=== PATIENT | female | born 1975 | race Caucasian/White ===

== ENCOUNTER 2017-10-11 14:56 | Emergency (ER) | payer SELFPAY ==
[2017-10-11 14:57] VITALS: BP 132/95; PULSE 110; RESP 20; TEMP 36.6; O2SAT 97; BMI 33.3
--- NOTE | 2017-10-11 15:24 | ED.VISSUMM ---
- ER Visit Summary Date of Service: 10/11/17 Chief Complaint: Depressed and suicidal History of Present Illness: The patient is a 41 F straight depression and prior suicidal ideation. Recently he has been hospitalized at [facility] for similar symptoms. She also has had a history of deep venous thromboses and is currently on Coumadin. 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 She states that this caused her much grief and has exacerbated her depression. She states she is suicidal. She is a plan either to overdose or shoot herself and states that she has Coumadin that she would use to overdose herself or a gun that she has in her home. Physical Examination: Well-appearing middle-age female. Vital signs are stable afebrile. She does not look septic or toxic. H EENT exam pupils were reactive light. No facial droop. No head or facial trauma. Neck nontender. Lungs clear to auscultation bilaterally. Heart regular rhythm no murmur. Abdomen is soft and nontender. She is moving all 4 extremities. They are neurovascularly intact. Neurologic exam she is awake alert with no focal deficits. Back exam nontender. Psychiatrically she is emotionally upset and tearful. Test Results: Patient will undergo ED mental health evaluation along with the Coumadin level. Emergency Department Course and Treatment: She will be given 1 dose of p.o. Ativan here. Treatment Plan: The mental health workup and then evaluation by the counseling center. Disposition: [] Impression: Acute on chronic depression with suicidal ideation Anticoagulated with a history of DVT History of depression with prior suicide attempts. This note was generated with [employer] dictation software. It may contain incorrect words, spelling, and punctuation that were not noted in review of the chart prior to signing ED Disposition - Plan for ED Patient: Chief Complaint: Suicidal Referrals: Angella Melgar [Primary Care Provider] -
[2017-10-11] MEDS: LORazepam 1 MG Tablet PO ×2 (15:44→20:44)
[2017-10-11 15:56] LABS: Absolute Lymphocyte Count 2.05 X10^3/ul (0.83-4.51); Absolute Neutrophil Count 8.4 X10^3/uL (2.0-7.7); Basophil# 0.04 X10^3/uL; Basophil% 0.4 % (0-1); Eosinophil# 0.32 X10^3/uL; Eosinophils% 2.8 % (0-5); Hematocrit 38.2 % (37-47); Hemoglobin 12.6 g/dl (12.0-15.0); Lymphocyte # 2.05 X10^3/ul (4.0); Mean Corpuscular Hgb 32.7 pg (27.0-32.0); Mean Corpuscular Volume 99.2 fL (81-99); Mean Platelet Vol. 8.5 fl (6.2-12.0); Monocyte# 0.58 X10^3/uL; Monocyte% 5.1 % (0-10); Neutrophil # 8.41 X10^3/uL (2.7-7.7); Neutrophil % 73.5 % (47-70); Platelet Count 254 K/mm3 (150-450); RBC Distribution Width CV 12.8 % (11.6-14.6); RBC Distribution Width SD 46.5 fl (35.1-43.9); Red Blood Count 3.85 M/mm3 (4.2-5.4); White Blood Count 11.4 K/mm3 (4.4-11.0)
[2017-10-11 15:57] LABS: POSITIVE COUNT NO; POSITIVE DIFFERENTIAL NO; POSITIVE MORPHOLOGY NO
[2017-10-11 16:09] LABS: Anion Gap 9 (5-15); BUN 15 mg/dL (7-18); BUN/Creat Ratio 18.7 RATIO (10-20); Calcium,Total 8.4 mg/dL (8.5-10.1); Chloride 107 mmol/L (98-107); EST Glomerular Filtration Rate 83 mL/min (>60); Est Glom Filt Rate - Afr Amer 101 mL/min (>60); Estimated Creatinine Clearance 75.78 ml/min; Glucose 88 mg/dL (70-110); Potassium 3.9 mmol/L (3.5-5.1); Sodium Level 140 mmol/L (136-145)
--- NOTE | 2017-10-11 16:09 | NURSING ---
SUJIT, CRISIS, HERE
[2017-10-11 16:18] LABS: International Normalized Ratio 1.7
[2017-10-11 16:19] LABS: Amphetamine Urine VISTA NEGATIVE (<1000 ng/mL); Barbiturate Urine VISTA POSITIVE (< 200 ng/mL); Benzodiazepine Urine VISTA NEGATIVE (< 200 ng/mL); Cocaine Urine VISTA NEGATIVE (< 300 ng/mL); Ecstacy Urine VISTA NEGATIVE (< 500 ng/mL); Methadone Urine VISTA NEGATIVE (< 300 ng/mL); PCP Urine VISTA NEGATIVE (< 25 ng/mL); THC Urine VISTA NEGATIVE (< 50 ng/mL); Vista UDS pH Range 5
[2017-10-11 16:19] LABS: Pregnancy, Serum, hCG Quali. NEGATIVE Negative (0-9 Nonpreg)
[2017-10-11 16:25] LABS: Alcohol, Blood (Medical)-Serum < 3.0 mg/dL
[2017-10-11 16:40] VITALS: BP 101/73; PULSE 73; RESP 14; O2SAT 96
[2017-10-11 18:04] VITALS: BP 105/64; PULSE 70; RESP 18
--- NOTE | 2017-10-11 18:06 | ED.RN ---
pt continues to request pain medication for headache. aware was awre and was willing to offer tylenol
[2017-10-11 18:29] VITALS: BP 103/64; PULSE 72; RESP 18; O2SAT 98
[2017-10-11] MEDS: DiphenhydrAMINE 25 MG Capsule 50 MG PO (18:30)
[2017-10-11] MEDS: Acetaminophen 500 MG Tablet 1000 MG PO (18:31)
--- NOTE | 2017-10-11 18:35 | ED.RN ---
pt medicated. now asking for klonopin and coumadin. pt aware had ativan at 1545
[2017-10-11] MEDS: Acetaminophen/Butalbital/Caffe 1 Tablet 2 TABLET PO (20:44)
--- NOTE | 2017-10-11 22:02 | ED.RN ---
PT STILL ANXIOUS. WALKING OUT TO DESK SEVERAL TIMES. ATTEMPTED TO WALK PAST THE NURSES DECK TOWARD THE DOOR, HOWEVER TWO POLICE OFFICERS STANDING IN ED. PT RETURNED TO ROOM. HAVE PROVIDED TWO MEAL TRAYS.
[2017-10-11] MEDS: Ziprasidone IM 20 MG/ML VIAL 10 MG IM (22:10)
[2017-10-11 22:11] VITALS: BP 111/71; PULSE 69; O2SAT 98
[2017-10-11 23:00] VITALS: RESP 14
[2017-10-12] VITALS: RESP 16
[2017-10-12 01:00] VITALS: RESP 18
--- NOTE | 2017-10-12 04:14 | ED.RN ---
[facility] UNAVAILABLE FOR FEW HOURS [facility] UNAVAILABLE [facility]
--- NOTE | 2017-10-12 04:27 | ED.RN ---
REFER TO DOWNTIME CHARTING PAPER WORK FROM [phone] TO [phone].
--- NOTE | 2017-10-12 04:28 | ED.RN ---
[facility] WAS CALLED FOR TRANSPORT. ALL [facility] ARE BUSY, WILL TRY BACK LATER.
--- NOTE | 2017-10-12 04:43 | ED.RN ---
[facility] ETA 10 AM
[2017-10-12 05:31] VITALS: RESP 16
[2017-10-12 08:00] VITALS: BP 126/77; PULSE 72; RESP 16; O2SAT 99
[2017-10-12] MEDS: LORazepam 1 MG Tablet PO (08:40)
[2017-10-12] MEDS: Furosemide 40 MG Tablet PO (09:03)
[2017-10-12] MEDS: clonazePAM 0.5 MG Tablet PO (09:24)
[2017-10-12] MEDS: RisperiDONE 0.25 MG Tablet PO (09:24)
[2017-10-12] MEDS: Venlafaxine XR 150 MG Capsule PO (10:26)
[2017-10-12] MEDS: Venlafaxine XR 37.5 MG Capsule PO (10:26)
== END 2017-10-12 10:27 ==
PROVIDERS: Emergency Provider Emergency Medicine; Family Provider Nurse Practitioner Family; PCP Nurse Practitioner Family
DX: F32.9 Major depressive disorder, single episode, unspecified (principal); R45.851 Suicidal ideations; Z91.5 Personal history of self-harm; Z86.718 Personal history of other venous thrombosis and embolism; Z79.01 Long term (current) use of anticoagulants; Z72.0 Tobacco use
CPT/HCPCS: 36415; 80048; 80307; 80320; 84703; 85025; 85610; 99284; G0480; J3486

== ENCOUNTER 2017-11-11 02:36 | Emergency (ER) | payer SELFPAY ==
[2017-11-11 02:37] VITALS: BP 128/89; PULSE 88; RESP 20; TEMP 36.3; O2SAT 100; BMI 33.2
[2017-11-11] MEDS: Dicyclomine 10 MG Capsule 20 MG PO (03:15)
[2017-11-11] MEDS: Metoclopramide 10 MG/2 ML Vial IM (03:15)
[2017-11-11 04:05] LABS: Absolute Lymphocyte Count 2.01 X10^3/ul (0.83-4.51); Absolute Neutrophil Count 3.1 X10^3/uL (2.0-7.7); Basophil# 0.02 X10^3/uL; Basophil% 0.3 % (0-1); Eosinophils% 5.2 % (0-5); Hematocrit 36.1 % (37-47); Hemoglobin 12.4 g/dl (12.0-15.0); Lymphocyte # 2.01 X10^3/ul (4.0); Lymphocyte % 34.5 % (19-41); Mean Corp Hgb Conc 34.3 g/gl (32-36); Mean Corpuscular Hgb 33.4 pg (27.0-32.0); Mean Corpuscular Volume 97.3 fL (81-99); Mean Platelet Vol. 8.6 fl (6.2-12.0); Monocyte# 0.43 X10^3/uL; Monocyte% 7.4 % (0-10); Neutrophil # 3.05 X10^3/uL (2.7-7.7); Neutrophil % 52.4 % (47-70); Platelet Count 241 K/mm3 (150-450); RBC Distribution Width CV 11.7 % (11.6-14.6); RBC Distribution Width SD 40.1 fl (35.1-43.9); Red Blood Count 3.71 M/mm3 (4.2-5.4); White Blood Count 5.8 K/mm3 (4.4-11.0)
[2017-11-11 04:09] LABS: POSITIVE COUNT NO; POSITIVE DIFFERENTIAL NO; POSITIVE MORPHOLOGY NO
[2017-11-11 04:14] LABS: International Normalized Ratio 1.5; Partial Thromboplast Time 28.5 Seconds (24.1-36.2); Prothrombin Time (Protime)PT. 17.6 SECONDS (11.7-14.9)
[2017-11-11 05:10] LABS: AST(SGOT) 39 U/L (15-37); Alanine Aminotransfer ALT/SGPT 80 U/L (13-56); Albumin, Serum 3.6 g/dL (3.2-5.0); Alkaline Phosphatase 130 U/L (45-117); Anion Gap 11 (5-15); BUN 20 mg/dL (7-18); BUN/Creat Ratio 31.8 RATIO (10-20); Bilirubin, Direct < 0.05 mg/dL (0.00-0.30); Calcium,Total 8.2 mg/dL (8.5-10.1); Chloride 104 mmol/L (98-107); Creatinine, Serum 0.63 mg/dL (0.55-1.02); EST Glomerular Filtration Rate 110 mL/min (>60); Est Glom Filt Rate - Afr Amer 133 mL/min (>60); Estimated Creatinine Clearance 96.23 ml/min; Globulin 2.9 g/dL (2.2-4.2); Glucose 104 mg/dL (74-106); Lipase 169 U/L (73-393); Potassium 3.4 mmol/L (3.5-5.1); Protein, Total 6.5 g/dL (6.4-8.2); Sodium Level 138 mmol/L (136-145)
--- NOTE | 2017-11-11 05:25 | ED.VISSUMM ---
- ER Visit Summary Date of Service: 11/11/17 Chief Complaint: Abdominal pain History of Present Illness: The patient is a 41 F presenting for evaluation secondary to abdominal pain. Patient states that since yesterday she has had epigastric abdominal pain that is sharp and somewhat radiates around to her back. States it has been associated with 3 days of loose watery stools. She denies any presence of fevers or vomiting. She does endorse some nausea. Patient states that the beginning of this month she was at [facility] and received a ERCP that resulted in a sphincterotomy and removal of gallstones. Patient states this pain feels somewhat similar. She has follow-up with her GI doctor later today. Physical Examination: Vital signs are within normal limits, patient is afebrile. General: Patient is well-nourished well-developed and in no acute distress. Head: Normocephalic, atraumatic Eyes: Pupils equal round and reactive bilaterally, extra occular motion intact bialterally ENT: Moist mucous membranes Neck: Supple, no lymphadenopathy, no JVD, no meningismus CVS: Heart regular rate and rhythm, no murmurs, rubs or gallops, radial pulses 2+ bilaterally Resp: Respirations nondistressed, lung sounds clear bilaterally Abdomen: Soft, epigastric tenderness to palpation no guarding no rebound, nondistended, no palpable masses, normal bowel sounds Back: Nontender Extremities: Nontender, atraumatic, active full range of motion, no peripheral edema Skin: warm, no rashes, no petechia Neuro: Alert and oriented x 4, CN 2-12 intact, no lateralizing neurological defecits Psyc: Normal affect Test Results: CBC, chemistry, liver panel, and coagulation studies showed evidence of mild hypokalemia 3.4, mild elevation of alkaline phosphatase at 130 ALT at 80 and AST at 39 lipase negative INR subtherapeutic at 1.5. Emergency Department Course and Treatment: Patient presented for evaluation secondary to abdominal pain. Laboratory workup was unremarkable as noted above. Patient's abdominal exam is benign and I do not believe that there is a surgical process at this time that would require imaging. Patient was given Bentyl and Reglan and Tylenol. I reviewed patient's records, she does have multiple visits for non-verifiable pain, and we are unable to obtain records from [facility] during her emergency department stay. Regardless, she has stable vital signs and was sleeping on repeat evaluation at 520 I believe that she is stable for discharge for follow-up with her GI doctor later today. She was given signs and symptoms for which to return to the emergency department Disposition: Discharge Impression: 1. Abdominal pain 2. Recent ERCP This note was generated with [employer] dictation software. It may contain incorrect words, spelling, and punctuation that were not noted in review of the chart prior to signing ED Disposition - Plan for ED Patient: Disposition: Home or Assisted Living Chief Complaint: Abd Pain Diagnosis: Abdominal pain Instructions: ED Abdominal Pain Unkn Cause Referrals: Angella Melgar [Primary Care Provider] - Additional Instructions: Followup with your Surgeon later today as scheduled
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
[2017-11-11] MEDS: Acetaminophen 500 MG Tablet 1000 MG PO (05:35)
[2017-11-11 05:38] VITALS: BP 95/68; PULSE 82; RESP 17; O2SAT 99
--- NOTE | 2017-11-11 05:38 | ED.RN ---
DISCHARGE INSTRUCTIONS GIVEN TO AND REVIEWED WITH PATIENT, PATIENT DENIES QUESTIONS OR CONCERNS AND VOICES UNDERSTANDING OF DISCHARGE INSTRUCTIONS. PT AMBULATES OUT OF ROOM WITHOUT DIFFICULTY.
== END 2017-11-11 05:39 | disposition home or self-care (01) ==
PROVIDERS: Emergency Provider Emergency Medicine; Family Provider Nurse Practitioner Family; PCP Nurse Practitioner Family
DX: R10.13 Epigastric pain (principal); Z98.890 Other specified postprocedural states; Z79.01 Long term (current) use of anticoagulants; Z79.899 Other long term (current) drug therapy
CPT/HCPCS: 80048; 80076; 83690; 85025; 85610; 85730; 99283

== ENCOUNTER 2017-11-11 17:05 | Emergency (ER) | payer SELFPAY ==
[2017-11-11 17:05] VITALS: BP 133/98; PULSE 100; RESP 16; TEMP 36.7; O2SAT 98; BMI 32.7
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
[2017-11-11] MEDS: fentaNYL 100 MCG/2 ML Ampul 50 MCG IM (17:55)
[2017-11-11 17:58] LABS: Absolute Lymphocyte Count 1.77 X10^3/ul (0.83-4.51); Absolute Neutrophil Count 5.4 X10^3/uL (2.0-7.7); Basophil# 0.04 X10^3/uL; Basophil% 0.5 % (0-1); Eosinophil# 0.25 X10^3/uL; Eosinophils% 3.1 % (0-5); Hematocrit 39.8 % (37-47); Hemoglobin 14.2 g/dl (12.0-15.0); Lymphocyte # 1.77 X10^3/ul (4.0); Lymphocyte % 22.3 % (19-41); Mean Corp Hgb Conc 35.7 g/gl (32-36); Mean Corpuscular Hgb 33.9 pg (27.0-32.0); Mean Platelet Vol. 8.7 fl (6.2-12.0); Monocyte# 0.49 X10^3/uL; Monocyte% 6.2 % (0-10); Neutrophil # 5.38 X10^3/uL (2.7-7.7); Neutrophil % 67.6 % (47-70); Platelet Count 293 K/mm3 (150-450); RBC Distribution Width CV 11.5 % (11.6-14.6); RBC Distribution Width SD 39.1 fl (35.1-43.9); Red Blood Count 4.19 M/mm3 (4.2-5.4)
[2017-11-11 18:08] LABS: POSITIVE COUNT NO; POSITIVE DIFFERENTIAL NO; POSITIVE MORPHOLOGY NO
[2017-11-11 18:28] LABS: Anion Gap 12 (5-15); BUN 12 mg/dL (7-18); Calcium,Total 8.5 mg/dL (8.5-10.1); Chloride 104 mmol/L (98-107); Creatinine, Serum 0.75 mg/dL (0.55-1.02); EST Glomerular Filtration Rate 90 mL/min (>60); Est Glom Filt Rate - Afr Amer 109 mL/min (>60); Estimated Creatinine Clearance 84.38 ml/min; Glucose 105 mg/dL (74-106); Potassium 3.5 mmol/L (3.5-5.1); Sodium Level 140 mmol/L (136-145)
[2017-11-11 18:46] LABS: International Normalized Ratio 1.5; Prothrombin Time (Protime)PT. 17.1 SECONDS (11.7-14.9)
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
--- NOTE | 2017-11-11 19:01 | ED.RN ---
PT REQUESTING MORE PAIN MEDICATION. DR. ANSARI INFORMED, AWAITING FURTHER ORDERS.
[2017-11-11] MEDS: oxyCODONE 5 MG Tablet 10 MG PO (19:10)
[2017-11-11 19:11] VITALS: BP 118/95; PULSE 88; RESP 17; O2SAT 99
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
[2017-11-11 20:29] VITALS: BP 118/67; PULSE 82; RESP 17; O2SAT 98
--- NOTE | 2017-11-11 20:34 | ED.RN ---
THIS RN EDUCATED PT ON DISCHARGE INSTRUCTIONS, USE OF SLING, AND HOME GOING PRESCRIPTIONS. PT VERBALIZES UNDERSTANDING. PT EDUCATED NOT TO DRIVE 4-6 HOURS AFTER HAVING NARCOTIC MEDICATION AND VERBALIZES UNDERSTANDING. ICE PACK GIVEN TO PT. PT ABLE TO DRESS SELF AND AMBULATE TO WAITING ROOM WITHOUT ASSISTANCE FROM STAFF. PT REPORTS HER FATHER IS COMING TO PICK HER UP. PT TO FOLLOW UP WITH LEONEL MARTINS AND PCP.
== END 2017-11-11 20:37 | disposition home or self-care (01) ==
PROVIDERS: Emergency Provider Emergency Medicine; Family Provider Nurse Practitioner Family; PCP Nurse Practitioner Family
DX: S00.83XA Contusion of other part of head, initial encounter (principal); S20.219A Contusion of unspecified front wall of thorax, initial encounter; S42.025A Nondisplaced fracture of shaft of left clavicle, initial encounter for closed fracture; D68.51 Activated protein C resistance; E78.00 Pure hypercholesterolemia, unspecified; F41.9 Anxiety disorder, unspecified; F32.9 Major depressive disorder, single episode, unspecified; G43.909 Migraine, unspecified, not intractable, without status migrainosus; Z72.0 Tobacco use; Z86.718 Personal history of other venous thrombosis and embolism; Z86.711 Personal history of pulmonary embolism; Z79.01 Long term (current) use of anticoagulants; Z79.899 Other long term (current) drug therapy; V43.52XA Car driver injured in collision with other type car in traffic accident, initial encounter; Y93.I9 Activity, other involving external motion; Y92.410 Unspecified street and highway as the place of occurrence of the external cause; Y99.8 Other external cause status
CPT/HCPCS: 70450; 71045; 71120; 72125; 73000; 80048; 84484; 85025; 85610; 93005; 99285; J7040; A4216

== ENCOUNTER 2017-11-12 12:07 | Emergency (ER) | payer SELFPAY ==
[2017-11-12 12:09] VITALS: BP 117/78; PULSE 113; RESP 16; TEMP 36.5; O2SAT 98; BMI 31.8
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
--- NOTE | 2017-11-12 13:27 | ED.DEP ---
ED Disposition - Plan for ED Patient: Chief Complaint: Upper Extremity Injury Instructions: ED Fx Clavicle Prescriptions: Oxycodone HCl/Acetaminophen [Percocet 5/325] 1 tab PO Q6H PRN PRN 3 Days #12 tab PRN Reason: Pain Referrals: Angella Melgar [Primary Care Provider] -
[2017-11-12] MEDS: HYDROmorphone 1 MG/ML Syringe IM (13:32)
[2017-11-12 13:58] VITALS: PULSE 95; RESP 16; O2SAT 99
== END 2017-11-12 14:00 | disposition home or self-care (01) ==
LOC: ED 13:49
PROVIDERS: Emergency Provider Emergency Medicine; Family Provider Nurse Practitioner Family; PCP Nurse Practitioner Family
DX: S42.002D Fracture of unspecified part of left clavicle, subsequent encounter for fracture with routine healing (principal); Z86.73 Personal history of transient ischemic attack (TIA), and cerebral infarction without residual deficits; Z86.718 Personal history of other venous thrombosis and embolism; Z72.0 Tobacco use; V43.52XD Car driver injured in collision with other type car in traffic accident, subsequent encounter
CPT/HCPCS: 99283

== ENCOUNTER 2017-11-13 17:37 | Emergency (ER) | payer SELFPAY ==
[2017-11-13 17:38] VITALS: BP 126/88; PULSE 125; RESP 20; TEMP 36.6; O2SAT 99; BMI 32.6
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
== END 2017-11-13 18:26 | disposition home or self-care (01) ==
PROVIDERS: Emergency Provider Emergency Medicine; Family Provider Nurse Practitioner Family; PCP Nurse Practitioner Family
DX: M25.512 Pain in left shoulder (principal); Z09 Encounter for follow-up examination after completed treatment for conditions other than malignant neoplasm; I10 Essential (primary) hypertension; E78.00 Pure hypercholesterolemia, unspecified; Z72.0 Tobacco use; F32.9 Major depressive disorder, single episode, unspecified
CPT/HCPCS: 99281

== ENCOUNTER 2017-11-14 17:21 | Emergency (ER) | payer SELFPAY ==
[2017-11-14 17:22] VITALS: BP 126/78; PULSE 127; RESP 16; TEMP 36.6; O2SAT 99; BMI 31.8
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
--- NOTE | 2018-03-10 15:49 | CASEMGMT ---
Social Work Note EDCP completed and approved. EDCP packet mailed out with certified tracking. Tracking number: [id number] Adry Núñez MSW, PHILANTHROPY OFFICER
== END 2017-11-14 18:04 | disposition home or self-care (01) ==
LOC: ED 17:57
PROVIDERS: Emergency Provider Emergency Medicine; Family Provider Nurse Practitioner Family; PCP Nurse Practitioner Family
DX: M25.512 Pain in left shoulder (principal); I10 Essential (primary) hypertension; E78.00 Pure hypercholesterolemia, unspecified; Z72.0 Tobacco use; F11.20 Opioid dependence, uncomplicated; F32.9 Major depressive disorder, single episode, unspecified; F41.9 Anxiety disorder, unspecified; Z86.718 Personal history of other venous thrombosis and embolism
CPT/HCPCS: 99282

== ENCOUNTER → 2018-04-12 10:43 | Outpatient (CLI) | payer MEDICARE, SELFPAY ==
[2018-04-12 11:17] LABS: Amphetamine Urine VISTA NEGATIVE (<1000 ng/mL); Barbiturate Urine VISTA NEGATIVE (< 200 ng/mL); Benzodiazepine Urine VISTA NEGATIVE (< 200 ng/mL); Cocaine Urine VISTA NEGATIVE (< 300 ng/mL); Ecstacy Urine VISTA NEGATIVE (< 500 ng/mL); Methadone Urine VISTA NEGATIVE (< 300 ng/mL); PCP Urine VISTA NEGATIVE (< 25 ng/mL); THC Urine VISTA NEGATIVE (< 50 ng/mL); Vista UDS pH Range 6
== END ==
PROVIDERS: Family Provider Nurse Practitioner Family; PCP Nurse Practitioner Family; Visit Provider Anesthesiology Pain Medicine
DX: F11.20 Opioid dependence, uncomplicated (principal)
CPT/HCPCS: 80307

== ENCOUNTER 2018-07-26 22:35 | Emergency (ER) | payer MEDICARE, MEDICAID, SELFPAY ==
[2018-07-26 22:36] VITALS: BP 125/77; PULSE 78; RESP 20; TEMP 36.7; O2SAT 98; BMI 30.6
--- NOTE | 2018-07-26 23:06 | ED.DCSUM_ITS ---
- ER Visit Summary Date of Service: 07/26/18 Chief Complaint: Right lower extremity edema History of Present Illness: The patient is a 42 F who complains of pain and increasing edema in the right lower extremity. She is on Coumadin for DVTs, she has a history of PEs and she has an IVC filter. She had a INR check 2-1/2 days ago and it was 1.4. She denies any chest pain or shortness of breath. Physical Examination: Not appear in acute distress. Moist mucous membranes, no obvious facial deformity No C-spine tenderness supple neck. Regular rate and rhythm without any obvious murmurs Clear lungs bilaterally speaking in full sentences without any obvious respiratory distress Abdomen soft and nontender no guarding or rebound Moves all extremities without any difficulty or pain. She has trace bilateral lower extremity edema, this seems symmetric to me. She does have calf tend erness on the right. Neurovascularly intact. Skin does not show any obvious rashes or lesions, no trauma. Alert oriented ?3 with no gross focal deficit Emergency Department Course and Treatment: Patient has an INR of 1.3. Because of the possibility of a DVT I gave her Lovenox and will bring her back in the morning for a vascular study. Vascular study is unavailable at this time. I told her to increase her Coumadin from 3.5-5 mg daily. Disposition: Discharge stable condition Impression: Right lower extremity edema This note was generated with [employer] dictation software. It may contain incorrect words, spelling, and punctuation that were not noted in review of the chart prior to signing ED Disposition - Plan for ED Patient: Disposition: Home or Assisted Living Chief Complaint: Edema Instructions: ED Leg Swelling Unilateral Referrals: Angella Fritz NP-C [Primary Care Provider] - Additional Instructions: Return in the morning for a ultrasound of your leg to make sure you do not have a clot. Increase your Coumadin from 3.5 mg to 5 mg daily and get your INR checked in 5 days.
[2018-07-27 00:05] LABS: International Normalized Ratio 1.3
--- NOTE | 2018-07-27 00:16 | ED.DEP ---
ED Disposition - Plan for ED Patient: Disposition: Home or Assisted Living Chief Complaint: Edema Instructions: ED Leg Swelling Unilateral Prescriptions: Warfarin [Coumadin ([facility])] 5 mg PO DAILY #14 tab Referrals: Angella Fritz NP-C [Primary Care Provider] - Additional Instructions: Return in the morning for a ultrasound of your leg to make sure you do not have a clot. Increase your Coumadin from 3.5 mg to 5 mg daily and get your INR checked in 5 days.
[2018-07-27] MEDS: Enoxaparin 80 MG/0.8 ML Syringe 70 MG SC (00:18)
== END 2018-07-27 00:24 | disposition home or self-care (01) ==
PROVIDERS: Emergency Provider Emergency Medicine; Family Provider Nurse Practitioner Family; PCP Nurse Practitioner Family
DX: R60.0 Localized edema (principal); F32.9 Major depressive disorder, single episode, unspecified; Z79.01 Long term (current) use of anticoagulants; Z86.718 Personal history of other venous thrombosis and embolism; Z86.711 Personal history of pulmonary embolism; F11.90 Opioid use, unspecified, uncomplicated
CPT/HCPCS: 85610; 99282

== ENCOUNTER → 2018-07-27 13:46 | Outpatient (CLI) | payer MEDICARE, MEDICAID, SELFPAY ==
--- NOTE | 2018-07-27 13:51 | VDLE_ITS ---
Reason For Study: edema RIGHT LEFT GSV is normal. CFV is compressible, spontaneous, phasic, CFV is compressible, spontaneous, phasic, competent, and demonstrates normal competent and demonstrates normal augmentation. augmentation. FV is compressible, spontaneous, phasic, competent and demonstrates normal augmentation. T/P Trunk is compressible. PTV is compressible. RT PerV is compressible. Pop V is compressible with reflux upon augmentation. Procedure Exam performed in department. The exam was diagnostic. <> Interpretation Summary Deep veins of the right lower extremity are patent and compressible segmentally. There is no evidence of right lower extremity deep vein thrombosis. The right popliteal vein is incompetent. The right common femoral vein and femoral vein are competent. The right greater saphenous vein appears patent and compressible segmentally. Ordering Physician: Jg Maddox Performed By: Demetrius Henderson RVT
== END ==
PROVIDERS: Family Provider Nurse Practitioner Family; PCP Nurse Practitioner Family; Referring Provider Emergency Medicine; Visit Provider Emergency Medicine
DX: R60.0 Localized edema (principal)
CPT/HCPCS: 93971

== ENCOUNTER 2018-08-02 11:12 | Outpatient (RCR) | payer MEDICARE, SELFPAY ==
[2018-08-02 11:52] LABS: Prothrombin Time (Protime)PT. 22.9 SECONDS (11.7-14.9)
== END 2018-08-18 10:34 | disposition home or self-care (01) ==
LOC: LAB 11:12
PROVIDERS: Family Provider Nurse Practitioner Family; PCP Nurse Practitioner Family; Referring Provider Nurse Practitioner Family; Visit Provider Nurse Practitioner Family
DX: D68.51 Activated protein C resistance (principal)
CPT/HCPCS: 36415; 85610

== ENCOUNTER 2018-09-21 21:32 | Emergency (ER) | payer MEDICARE, SELFPAY ==
[2018-09-21 21:33] VITALS: BP 130/80; PULSE 66; RESP 17; TEMP 37.2; O2SAT 99; BMI 25.5
[2018-09-21 22:26] LABS: Bacteria 0 SEEN /hpf (None Seen)
[2018-09-21 22:35] LABS: Color, Urine Yellow (Yellow); Glucose, Dipstick Normal (Normal); Ketone-Dipstick Negative (Negative); Leukocyte Esterase-Dipstick Negative /ul (Negative); Nitrite-Dipstick Negative (Negative); Occult Blood-Urine 10 /ul (Negative); Protein-Dipstick Negative (Negative); Specific Gravity, Urine 1.025 (1.002-1.030); Urine Bilirubin Dipstick Negative (Negative); Urine Clarity Clear (Clear); Urine Urobilinogen Normal (Normal)
[2018-09-21 22:43] LABS: Mucous, Urine 3+ /hpf (<or=2+)
[2018-09-21] MEDS: 0.9% Normal Saline 1,000 ML 1000 ML IV (22:43)
[2018-09-21 22:44] LABS: Squamous Epithelial Cells - UA 0-5 SEEN /hpf (5-10)
[2018-09-21 22:45] LABS: Hyaline Cast 5-10 SEEN /lpf (0-5)
[2018-09-21 22:47] LABS: Calcium Oxalate Crystals Ur RARE /hpf (<or=2+); Red Blood Cells-Urine 0-5 SEEN /hpf (0-5); White Blood Cells 0-5 SEEN /hpf (0-5)
[2018-09-21] MEDS: Acetaminophen 500 MG Tablet 1000 MG PO (22:54)
[2018-09-21 22:56] LABS: Absolute Lymphocyte Count 1.96 X10^3/ul (0.83-4.51); Basophil# 0.03 X10^3/uL; Basophil% 0.4 % (0-1); Eosinophil# 0.04 X10^3/uL; Eosinophils% 0.5 % (0-5); Hematocrit 43.2 % (37-47); Hemoglobin 15.1 g/dl (12.0-15.0); Lymphocyte # 1.96 X10^3/ul (4.0); Lymphocyte % 23.1 % (19-41); Mean Corpuscular Hgb 32.2 pg (27.0-32.0); Mean Corpuscular Volume 92.1 fL (81-99); Mean Platelet Vol. 8.6 fl (6.2-12.0); Monocyte# 0.47 X10^3/uL; Monocyte% 5.5 % (0-10); Neutrophil # 5.99 X10^3/uL (2.7-7.7); Neutrophil % 70.4 % (47-70); POSITIVE COUNT NO; POSITIVE DIFFERENTIAL NO; POSITIVE MORPHOLOGY NO; Platelet Count 289 K/mm3 (150-450); RBC Distribution Width CV 11.8 % (11.6-14.6); RBC Distribution Width SD 39.5 fl (35.1-43.9); Red Blood Count 4.69 M/mm3 (4.2-5.4); White Blood Count 8.5 K/mm3 (4.4-11.0)
[2018-09-21 23:12] LABS: Anion Gap 12 (5-15); BUN 6 mg/dL (7-18); BUN/Creat Ratio 7.6 RATIO (10-20); Calcium,Total 9.1 mg/dL (8.5-10.1); Chloride 106 mmol/L (98-107); Creatinine, Serum 0.79 mg/dL (0.55-1.02); EST Glomerular Filtration Rate 84 mL/min (>60); Est Glom Filt Rate - Afr Amer 101 mL/min (>60); Estimated Creatinine Clearance 79.29 ml/min; Glucose 100 mg/dL (74-106); Potassium 3.2 mmol/L (3.5-5.1); Sodium Level 139 mmol/L (136-145)
--- NOTE | 2018-09-21 23:16 | CT_ITS ---
STUDY: CT ABDOMEN AND PELVIS WITHOUT CONTRAST REASON FOR EXAM: Female, 42 years old. Dysuria. RADIATION DOSAGE (If Supplied By Facility): CTDIvol = ( 8.39 ) mGy, DLP = ( 419.40 ) mGycm TECHNIQUE: Transaxial images were obtained from the dome of the diaphragm to the symphysis pubis without oral contrast, and without intravenous contrast. Sagittal and coronal images were reconstructed. Individualized dose optimization techniques were used for this CT. COMPARISON: CT of abdomen and pelvis dated September 28, 2017. FINDINGS: The visualized lung bases are unremarkable. The visualized portions of the heart are within normal limits. Normal liver. There are surgical clips in the gallbladder fossa consistent with a prior cholecystectomy. Normal spleen. There is diffuse atrophy of the pancreas. Normal bilateral adrenal glands. Normal right kidney. Normal left kidney. Normal visualized stomach. There is no evidence for dilated bowel, ascites or pneumoperitoneum. Of stool is visible throughout the colon with scattered colonic diverticula. The appendix is visualized and appears normal. Normal abdominal aorta. There are curvilinear opacities within the right inferior vena cava at the level of the renal veins. Several curvilinear opacities appear to extend beyond the inferior vena cava towards the right and into the right retroperitoneum vein. This is not the normal appearance of an inferior vena caval filter. There appears to be some migration of the inferior vena caval prongs beyond the inferior vena cava. This appearance is similar to the previous CT. Normal retroperitoneum. Normal urinary bladder. There is absence of the uterus consistent with a prior hysterectomy. Normal abdominal wall. There is a sclerotic area within the right pubic bone. This may represent a bone island. There is a sclerotic area in the left sacrum may represent a bone island. CT/Abdomen/Pelvis without Cont IMPRESSION: 1. 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 2. Cholecystectomy. 3. Large amount of stool, similar to previous study. Electronically Signed: Perri Hunter MD at 1:21 EST , Service support ,
[2018-09-21] MEDS: Ketorolac 30 MG/ML Syringe IV (23:24)
[2018-09-22] VITALS: RESP 14
--- NOTE | 2018-09-22 00:02 | ED.VISSUMM ---
- ER Visit Summary Date of Service: 09/22/18 Chief Complaint: Right flank pain History of Present Illness: The patient is a 42 F who presents with right flank pain that has been gradually getting worse over the past couple weeks. Patient was seen at an urgent care and was diagnosed with a urinary tract infection. Patient was given a prescription for Macrobid. Patient did not feel any improvement and went back to the urgent care. Patient was started on Cipro. Patient states she feels like she still has the urinary tract infection. Patient admits to some pain over the right flank area. Patient admits to some nausea and vomiting. She admits to chills but denies any fevers. Physical Examination: Vital signs are stable. Patient is afebrile. Patient is in no acute distress. Oral mucosa is pink and moist. Neck is supple. Trachea is midline. There is no JVD noted. Heart was regular rate and rhythm. Lungs are clear and equal bilaterally. Abdomen is soft. There is some right CVA tenderness. There is no rebound or guarding noted. Cranial nerves II through XII are intact. There are no focal motor or sensory deficits noted. Test Results: CBC was normal. Basic metabolic profile showed a mild hypokalemia of 3.2. Urinalysis showed occult blood of [address] but was otherwise normal. CT scan of the abdomen and pelvis was obtained. This was unchanged compared to previous CT scan done approximately 1 year ago. Emergency Department Course and Treatment: She was given IV fluids and Toradol here. Patient felt better on reevaluation. Patient was instructed to complete her course of antibiotics. Patient was instructed to take Tylenol or ibuprofen as needed for any pain or fever. Patient was instructed to follow-up with her primary care physician in 5-7 days. Patient understood and was agreeable with the plan. All questions were answered. Disposition: Discharge home Impression: Right flank pain This note was generated with [employer] dictation software. It may contain incorrect words, spelling, and punctuation that were not noted in review of the chart prior to signing ED Disposition - Plan for ED Patient: Disposition: Home or Assisted Living Chief Complaint: Complaint Diagnosis: Right flank pain Instructions: ED Flank Pain Uncertain Cause Referrals: Angella Fritz, ALLEN-C [Primary Care Provider] -
[2018-09-22 01:57] VITALS: BP 132/82; PULSE 88; RESP 16; O2SAT 98
== END 2018-09-22 01:57 | disposition home or self-care (01) ==
PROVIDERS: Emergency Provider Emergency Medicine; Family Provider Nurse Practitioner Family; PCP Nurse Practitioner Family
DX: R10.9 Unspecified abdominal pain (principal); R30.0 Dysuria; R11.2 Nausea with vomiting, unspecified; E78.00 Pure hypercholesterolemia, unspecified; D68.51 Activated protein C resistance; F32.9 Major depressive disorder, single episode, unspecified; Z86.73 Personal history of transient ischemic attack (TIA), and cerebral infarction without residual deficits; Z87.440 Personal history of urinary (tract) infections; Z79.01 Long term (current) use of anticoagulants; Z86.718 Personal history of other venous thrombosis and embolism
CPT/HCPCS: 74176; 80048; 81001; 85025; 87086; 96361; 96374; 99284; J7030

== ENCOUNTER 2018-10-02 14:19 | Emergency (ER) | payer MEDICARE, SELFPAY ==
[2018-10-02 14:20] VITALS: BP 122/86; PULSE 95; RESP 18; TEMP 37; O2SAT 97; BMI 25.5
[2018-10-02 14:27] VITALS: TEMP 36.4; BMI 30.9
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
--- NOTE | 2018-10-02 15:12 | CM.ED ---
SOCIAL WORK NOTE THIS WORKER DISCUSSED PT'S CASE WITH NURSE. PD IN WITH PT AT THIS TIME. PT TO REMAIN AVAILABLE IF NEEDED.
[2018-10-02] MEDS: Acetaminophen 325 MG Tablet 650 MG PO (15:45)
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
[2018-10-02 16:03] LABS: International Normalized Ratio 1.7; Prothrombin Time (Protime)PT. 20.4 SECONDS (11.7-14.9)
[2018-10-02 16:38] VITALS: RESP 16
== END 2018-10-02 16:39 | disposition home or self-care (01) ==
PROVIDERS: Emergency Provider Emergency Medicine
DX: S20.219D Contusion of unspecified front wall of thorax, subsequent encounter (principal); Y04.2XXA Assault by strike against or bumped into by another person, initial encounter; Y93.9 Activity, unspecified; Y92.096 Garden or yard of other non-institutional residence as the place of occurrence of the external cause; Y99.9 Unspecified external cause status; D68.9 Coagulation defect, unspecified; D68.51 Activated protein C resistance; Z79.01 Long term (current) use of anticoagulants; Z87.891 Personal history of nicotine dependence; F41.9 Anxiety disorder, unspecified; F32.9 Major depressive disorder, single episode, unspecified
CPT/HCPCS: 71046; 85610; 99285

== ENCOUNTER 2018-10-25 03:05 | Inpatient (IN) | payer MEDICARE, MEDICAID, SELFPAY ==
[2018-10-25] VITALS (10 sets, daily range): BP systolic 98–135; BP diastolic 59–101; PULSE 60–95; RESP 16–18; TEMP 36.6–37.1; O2SAT 97–100; BMI 26.2; BMI 27.4
[2018-10-25] MEDS: 0.9% Normal Saline 1,000 ML 999 ML IV (03:49)
[2018-10-25 03:53] LABS: Absolute Neutrophil Count 4.5 X10^3/uL (2.0-7.7); Basophil# 0.02 X10^3/uL; Basophil% 0.3 % (0-1); Eosinophil# 0.09 X10^3/uL; Eosinophils% 1.2 % (0-5); Hematocrit 40.7 % (37-47); Hemoglobin 13.6 g/dl (12.0-15.0); Lymphocyte % 30.1 % (19-41); Mean Corp Hgb Conc 33.4 g/gl (32-36); Mean Corpuscular Hgb 31.6 pg (27.0-32.0); Mean Corpuscular Volume 94.7 fL (81-99); Mean Platelet Vol. 8.6 fl (6.2-12.0); Monocyte# 0.48 X10^3/uL; Monocyte% 6.6 % (0-10); Neutrophil % 61.7 % (47-70); Platelet Count 275 K/mm3 (150-450); RBC Distribution Width SD 40.6 fl (35.1-43.9); White Blood Count 7.3 K/mm3 (4.4-11.0)
[2018-10-25 03:54] LABS: POSITIVE COUNT NO; POSITIVE DIFFERENTIAL NO; POSITIVE MORPHOLOGY NO
[2018-10-25] MEDS: Ketorolac 30 MG/ML Syringe IV (03:56)
[2018-10-25] MEDS: proMETHazine 25 MG/ML Syringe 12.5 MG IV (03:56)
[2018-10-25] MEDS: Dicyclomine 10 MG Capsule 20 MG PO ×3 (03:56→20:06)
[2018-10-25 04:07] LABS: ALB/GLOB Ratio 1.3 RATIO (0.9-2.4); AST(SGOT) 11 U/L (15-37); Alanine Aminotransfer ALT/SGPT 29 U/L (13-56); Albumin, Serum 3.9 g/dL (3.2-5.0); Alkaline Phosphatase 175 U/L (45-117); Anion Gap 11 (5-15); BUN 5 mg/dL (7-18); BUN/Creat Ratio 6.5 RATIO (10-20); Calcium,Total 8.9 mg/dL (8.5-10.1); Chloride 111 mmol/L (98-107); Creatinine, Serum 0.77 mg/dL (0.55-1.02); EST Glomerular Filtration Rate 86 mL/min (>60); Est Glom Filt Rate - Afr Amer 104 mL/min (>60); Estimated Creatinine Clearance 77.93 ml/min; Globulin 3.1 g/dL (2.2-4.2); Glucose 91 mg/dL (74-106); Potassium 3.3 mmol/L (3.5-5.1); Sodium Level 143 mmol/L (136-145)
[2018-10-25 04:16] LABS: Alcohol, Blood (Medical)-Serum < 3.0 mg/dL
[2018-10-25] MEDS: hydrOXYzine PAM 25 MG Capsule PO (04:30)
[2018-10-25 04:50] LABS: International Normalized Ratio 2.6
[2018-10-25 05:27] LABS: Amphetamine Urine VISTA NEGATIVE (<1000 ng/mL); Barbiturate Urine VISTA NEGATIVE (< 200 ng/mL); Benzodiazepine Urine VISTA NEGATIVE (< 200 ng/mL); Cocaine Urine VISTA NEGATIVE (< 300 ng/mL); Ecstacy Urine VISTA NEGATIVE (< 500 ng/mL); Methadone Urine VISTA NEGATIVE (< 300 ng/mL); PCP Urine VISTA NEGATIVE (< 25 ng/mL); THC Urine VISTA NEGATIVE (< 50 ng/mL); Vista UDS pH Range 6
--- NOTE | 2018-10-25 05:37 | ED.VISSUMM ---
- ER Visit Summary Date of Service: 10/25/18 Chief Complaint: Suboxone withdrawal History of Present Illness: The patient is a 42 F who presents with opiate withdrawal symptoms. She has been on Suboxone since January. She decided to come off of this. Her prescription ended 5 days ago. She began to develop withdrawal symptoms over the last 2 days. She was seen by her primary care physician was treated with clonidine and IV fluids. She states her symptoms were worse tonight and she felt she needed admitted so she came here to see about but can be admitted to [facility]. She complains of abdominal cramping nausea diarrhea chills muscle aches joint aches gooseflesh. Physical Examination: Afebrile blood pressure 135/101 Moist mucous membranes Heart regular rate and rhythm Lungs are clear Abdomen soft Alert Patient does have tremor and restlessness Test Results: CBC CMP notable for alkaline phosphatase 175, potassium 3.3. Alcohol negative. Drug screen negative. INR 2.6. Emergency Department Course and Treatment: Patient symptomatically treated here with IV fluids Toradol Phenergan and Bentyl. She was given Vistaril. Patient to be discussed with hospitalist for admission. Treatment Plan: [] Disposition: Admit Impression: Narcotic withdrawal This note was generated with [employer] dictation software. It may contain incorrect words, spelling, and punctuation that were not noted in review of the chart prior to signing ED Disposition - Plan for ED Patient: Referrals: Edwin Wilson MD [Primary Care Provider] -
--- NOTE | 2018-10-25 05:43 | PCM.HP.STD ---
Problem List (1) History of pulmonary embolus (PE) Status: Chronic Comment: lifelong coumadin (2) Factor V Leiden mutation Status: Chronic (3) Presence of IVC filter Status: Chronic History of Present Illness Date of Admission: 10/25/18 Chief Complaint: Narcotic withdrawal The patient is a 42 year old F with a significant history of factor V Leiden deficiency with PE and IVC filter and on Coumadin; and narcotic dependency who reports with narcotic withdrawal. She describes her symptoms have having restless legs, chills, nausea, vomiting, diarrhea and poor appetite. Patient reports that previously she was on Percocet, Vicodin, clonidine, Klonopin and Fioricet. She reports abusing the above medications and was started on Suboxone in January 2018. She coming off Suboxone 5 days ago. She reported her PCP gave a one-time dose of Clonidine that did not help. She reports taking Requip at home for restless leg syndrome. At the Emergency Department her CINA score was 11. Past Medical History Past Medical History (Chronic Problems): Chronic Problems Anxiety (Chronic) Depression (Chronic) History of pulmonary embolus (PE) (Chronic) lifelong coumadin Factor V Leiden mutation (Chronic) Obesity (BMI 30.0-34.9) (Chronic) Hyperlipidemia (Chronic) Presence of IVC filter (Chronic) Hypertension (Chronic) Allergies gabapentin [From Neurontin] Allergy (Verified 10/25/18 03:06) Rash morphine Allergy (Verified 10/25/18 03:06) HYPOTENSION Penicillins Allergy (Verified 10/25/18 03:06) Rash Sulfa (Sulfonamide Antibiotics) Allergy (Verified 10/25/18 03:06) Rash PT STATES ONLY HAPPENED ONCE BUT HAS TAKEN SINCE W/ NO PROBLEM Home Medications: Ambulatory Orders Medication Instructions Recorded Furosemide [Lasix] 40 mg PO DAILY 09/10/16 Potassium Chloride [K-Dur] 20 meq PO DAILY 09/10/16 Warfarin [Coumadin ([facility]KC)] 5 mg PO DAILY 09/10/16 Risperidone 0.5 mg PO BID 08/03/17 Venlafaxine XR [Effexor Xr] 150 mg PO DAILY 08/03/17 Ropinirole HCl [Requip] 0.5 mg PO QHS 11/11/17 Topiramate [Topamax] 75 mg PO DAILY 11/11/17 Topiramate [Topamax] 75 mg PO QHS 07/26/18 Levetiracetam [Keppra] 500 mg PO BID 10/25/18 Valacyclovir HCl [Valtrex] 500 mg PO DAILY 10/25/18 Surgical History: - - x2, hysterectomy, cholecystectomy, appendectomy, tonsillectomy and adenectomy, [place] filter placed. 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 Review of Systems Constitutional: Reports: Anorexia, Chills, Malaise. Denies: Fever, Weight Change HEENT: Denies: Sinus Congestion, Sinus Drainage, Sore Throat Cardiovascular: Denies: Chest Pain, Palpitations Respiratory: Denies: Cough, Shortness of breath at rest, Sputum production Gastrointestinal: Reports: Abdominal Pain, Diarrhea, Nausea, Vomiting Genitourinary: Denies: Dysuria Musculoskeletal: Denies: Joint Pain, Joint Tenderness Skin: Denies: Rash, Wounds Neurological: Denies: Numbness, Tingling, Focal weakness Psychiatric: Reports: Anxiety, Depression. Denies: Homicidal Ideations, Suicidal Ideations Hematologic/ Lymphatic: Denies: Easy Bruising, Easy Bleeding VTE Information - Inpt Only VTE Present on Admission: No VTE Mechan Device Prophylaxis: None VTE Pharm Prophylaxis ordered?: No Reason prophylaxis not ordered:: Treatment Not Indicated - Continue home Coumadin for Factor V Liden deficiency - Physical Exam General: Alert, Oriented x3, Cooperative, - - Patient in bed writhing her legs HEENT: Atraumatic, PERRLA, EOMI, Normocephalic Neck: Supple, No JVD, Negative Carotid Bruits Lungs: Clear to auscultation, Normal air movement Cardiovascular: Regular rate, No murmurs Abdomen: Bowel Sounds Present, Soft, Tender - R Suprapubic region Extremities: No edema, Capillary Refill Less than 3 Seconds Skin: No rashes, No breakdown Musculoskeletal: No Tenderness to Palpation of Joints or Extremities Neurological: Neuro grossly intact Psych/Mental Status: Agitated, Anxious Vital Signs Temp Pulse Resp BP Pulse Ox 97.8 F 95 17 135/101 H 97 10/25/18 03:06 10/25/18 03:06 10/25/18 03:06 10/25/18 03:06 10/25/18 03:06 Oxygen Delivery Method Room Air Weight: 67.132 kg Body Mass Index (BMI) 26.2 Laboratory Tests Past 24 Hrs 10/25/18 10/25/18 10/25/18 03:40 03:40 03:40 WBC 7.3 RBC 4.30 Hgb 13.6 Hct 40.7 MCV 94.7 MCH 31.6 MCHC 33.4 RDW 12.0 RDW Differential 40.6 Plt Count 275 MPV 8.6 Immature Gran % (Auto) 0.100 Neut % (Auto) 61.7 Lymph % (Auto) 30.1 [place] % (Auto) 6.6 Eos % (Auto) 1.2 Baso % (Auto) 0.3 Absolute Neuts (auto) 4.5 Absolute Lymphs (auto) 2.20 Total Counted Not Reportable PT INR Sodium 143 Potassium 3.3 L Chloride 111 H Carbon Dioxide 21.0 Anion Gap 11 BUN 5 L Creatinine 0.77 Estim Creat Clear Calc 77.93 Est GFR (MDRD) Af Amer 104 Est GFR (MDRD) Non-Af 86 BUN/Creatinine Ratio 6.5 L Glucose 91 Calcium 8.9 Total Bilirubin 0.30 AST 11 L ALT 29 Alkaline Phosphatase 175 H Total Protein 7.0 Albumin 3.9 Globulin 3.1 Albumin/Globulin Ratio 1.3 Urine Opiates Screen Urine Methadone Screen Ur Barbiturates Screen Ur Phencyclidine Scrn Ur Amphetamines Screen U Methamphetamin-MDMA U Benzodiazepines Scrn Urine Cocaine Screen U Cannabinoids Screen Ur Drug Screen Comment Ethyl Alcohol < 3.0 10/25/18 10/25/18 03:40 05:05 WBC RBC Hgb Hct MCV MCH MCHC RDW RDW Differential Plt Count MPV Immature Gran % (Auto) Neut % (Auto) Lymph % (Auto) [place] % (Auto) Eos % (Auto) Baso % (Auto) Absolute Neuts (auto) Absolute Lymphs (auto) Total Counted PT 28.0 H INR 2.6 Sodium Potassium Chloride Carbon Dioxide Anion Gap BUN Creatinine Estim Creat Clear Calc Est GFR (MDRD) Af Amer Est GFR (MDRD) Non-Af BUN/Creatinine Ratio Glucose Calcium Total Bilirubin AST ALT Alkaline Phosphatase Total Protein Albumin Globulin Albumin/Globulin Ratio Urine Opiates Screen NEGATIVE Urine Methadone Screen NEGATIVE Ur Barbiturates Screen NEGATIVE Ur Phencyclidine Scrn NEGATIVE Ur Amphetamines Screen NEGATIVE U Methamphetamin-MDMA NEGATIVE U Benzodiazepines Scrn NEGATIVE Urine Cocaine Screen NEGATIVE U Cannabinoids Screen NEGATIVE Ur Drug Screen Comment Ethyl Alcohol Assessment/Plan The patient is a 42 year old F with a significant history of factor V Leiden deficiency and narcotic dependency who presented with narcotic withdrawal symptoms after being off Suboxone for 5 days. Narcotic Dependence and Withdrawal VARGAS 10 was unremarkable Ethanol level was unremarkable. Placed on clonidine patch and as needed clonidine. Methocarbamol, Bentyl; Vistaril; Toradol and Mirapex ordered. Home Requip continued. Counselled. Hypokalemia Potassium on admission was 3.3 Patient is on chronic potassium supplementation. Potassium chloride 40 mEq x1. Continue home potassium 20meq daily thereafter Factor V Liden deficiency Therapeutic INR of 2.6 PT/INR in a.m. Coumadin continued. Depression and anxiety Effexor and Risperidone continued DVT prophylaxis Not indicated. Patient is on Coumadin with therapeutic INR. Coumadin continued. Code Visit Inpatient E&M: 82781 Init Hosp L3
[2018-10-25] MEDS: RisperiDONE 0.5 MG Tablet PO ×2 (07:47→22:41)
[2018-10-25] MEDS: Methocarbamol 750 MG Tablet PO ×3 (07:47→22:41)
[2018-10-25] MEDS: cloNIDine HCl 0.1 MG Tablet PO ×2 (07:47→20:05)
[2018-10-25 08:09] LABS: Magnesium 2.3 mg/dL (1.6-2.6)
--- NOTE | 2018-10-25 09:41 | CASEMGMT ---
Addendum entered by Nadia Pro 10/25/18 11:42: Aggie Yoon updated this worker that she saw pt, pt is not going to be [facility]. Aggie Yoon states pt currently see's Dr. Herrera at [facility] and will continue to go to [facility] at discharge. Original Note: Social Work Note SW placed a call to Aggie Yoon with [facility] to ask if [facility] will be seeing pt. SW waiting for call back. Nadia Pro CALL CENTER COORDINATOR, JEWEL INSERTER
[2018-10-25] MEDS: cloNIDine HCl 0.2 MG Patch TRANSDERM. (10:24)
[2018-10-25] MEDS: levETIRAcetam 500 MG Tablet PO ×2 (10:26→22:41)
[2018-10-25] MEDS: Venlafaxine XR 150 MG Capsule PO (10:26)
[2018-10-25] MEDS: Topiramate 25 MG Tablet 75 MG PO ×2 (10:30→22:41)
--- NOTE | 2018-10-25 12:14 | CASEMGMT ---
Social Work Assessment Referral Date: 10/25/2018 Date of Assessment: 10/25/2018 Reason for consult: Initial assessment, Narcotic Withdrawal Informant: SW Personal Status: SW met with pt to complete initial assessment. SW introduced self and role at [facility]. Pt is alert and orientated x4. Pt states that she lives alone in a one story home. Pt states she was previously independent with ALDs. No DME at home. Pt states her PCP is Dr. Wilson and preferred pharmacy is [facility]. Substance Abuse Hx: Pt states that she used to use alcohol and substances but denied currently using any. Pt states that she used to misuse her Percocet, Vicodin, Clonidine, Klonocpin and Fioricet. Pt states that she has been sober for a year now and was using Suboxone. Pt states that she las used Suboxone six days ago. Pt states she thought I don't need to use Suboxone anymore and decided to quit using it. Pt states now she is withdrawing from it. Pt states that she had told Aggie Yoon with [facility] that she would use her Suboxone again if it made her feel better. Mental Health Hx: Pt states she has a history of depression and anxiety. Pt states that she currently takes medications and the medications are Effexor and Risperdal. Pt states that she currently see's a counselor at [facility], states her counselor is Sally and she see's Sally about once every two weeks. Pt states that she has been in counseling for about a year and states that it is helping. Per Aggie Yoon, with [facility], Pt also see's Dr. Herrera at [facility]. Pt denied any current suicidal thoughts/plans/ideations. Pt states that she plans on resuming her counseling services when she discharges from [facility] and states that her counselor at [facility] knows that she is at [facility]. Pt denied additional needs or concerns at this time. Plan: Pt to discharge home and resume counseling services at [facility]. Nadia Pro ORACLE FINANCIAL APPLICATION DEVELOPER, OIL TRUCK DRIVER
[2018-10-25] MEDS: Pramipexole Di-HCl 0.25 MG Tablet PO ×2 (12:21→22:41)
[2018-10-25] MEDS: hydrOXYzine PAM 25 MG Capsule 50 MG PO ×2 (13:38→20:06)
[2018-10-25] MEDS: Ketorolac 10 MG Tablet PO ×2 (13:39→22:42)
[2018-10-25] MEDS: Furosemide 40 MG Tablet PO (13:40)
--- NOTE | 2018-10-25 16:02 | CASEMGMT ---
Social Work Note SW spoke with Aggie Yoon with [facility] who states pt is able to be apart of [facility] and she will follow up with pt. Nadia Pro BAR AND FILLER ASSEMBLER, CHANNEL PROCESS PLANT OPERATOR
[2018-10-25] MEDS: Nicotine Polacrilex 2 MG GUM PO (16:06)
--- NOTE | 2018-10-25 16:56 | NURSING ---
[id number] call from Dr. Luevano verbalized that he had seen patient this a.m. that he had woke patient up discussed labs with her as well as plan of care and treatment. At Dr. Luevano's request this nurse went in to see pt to discussed with pt if she had seen Dr. Luevano this a.m. and was informed by Dr. Luevano he would call back. This nurse went in to see pt. Pt verbalized that Aggie Yoon from [facility] had just seen her. Stated she would like to know if she can go on subutex states she has been off suboxone for this being day number 6. states the medications we are giving her are not lasting long enough for muscles cramps, aches, abd pain/cramps, and diarrhea. Discussed Imodium pt states she had told the nurse she didn't want immodium now but would be willing to try it. informed patient it would be up to the doctor to decide with her if she would go back on suboxone or subutex and what the treatment would be. Asked patient if she seen Dr. Luevano today. Discussed her seeing Dr. Papo Zamora this a.m. with admission whom she stated did not understand but states she does not remember seeing Dr. Luevano today despite this nurse attempting to describe him to her. called back, informed of above conversation and requested this nurse take the phone into pt and put on speaker phone so he could talk with both the patient and this nurse. again discussed plan of care with patient and reminded patient of him coming in and waking her up and discussing labs and plan of care with her earlier today. Pt stated she just forgot. Dr. Luevano then discussed patient again with only this nurse and discussed Aggie Yoon's role in patient care including that the reason Librium was mentioned earlier was it is on the protocol as an option only if he wanted it. Dr. Luevano verbalized frustration to this nurse stating would not order librium unless there was literature to support it. Discussed patient's response and denial of remembering conversation with Dr. Luevano. Dr. Luevano to discuss with Managers Rachel and Camilo. Porcelain Enamel Repairer informed of above.
[2018-10-25] MEDS: Acyclovir 200 MG Capsule 400 MG PO (22:41)
[2018-10-26] VITALS (7 sets, daily range): BP systolic 80–98; BP diastolic 56–62; PULSE 66–79; RESP 16–18; TEMP 36.9–37.1; O2SAT 95
[2018-10-26] MEDS: hydrOXYzine PAM 25 MG Capsule 50 MG PO ×2 (04:09→19:57)
[2018-10-26 06:16] LABS: Potassium 3.1 mmol/L (3.5-5.1)
[2018-10-26] MEDS: Ketorolac 10 MG Tablet PO ×2 (06:56→15:16)
[2018-10-26] MEDS: cloNIDine HCl 0.1 MG Tablet PO ×2 (06:57→15:16)
--- NOTE | 2018-10-26 09:33 | PCM.PROGNOTE ---
Subjective: Chief complaint: Follow-up after admission for acute Suboxone withdrawal. Patient seen and examined. No acute events overnight. Today, she reported that her symptoms are getting better. She was able to sleep last night. She has no more of the recurrence, no more nausea and she was able to eat. According to the patient, she has been on fixed dose of Suboxone since Jan, 2018 and couple of days before admission, she decided to stop taking Suboxone. She has been seeing a doctor who takes care of her Suboxone and no instruction was given by her doctor to taper down or discontinue Suboxone. I explained to the patient that Suboxone is a very long-acting drug and it should not be discontinued abruptly and has to be tapered down. Her vital signs are stable. - Physical Exam General: Alert, Oriented x3, Cooperative, No apparent distress HEENT: Atraumatic, PERRLA, EOMI, Normocephalic Oral: Moist Mucosa, No Gingival or Mucosal Lesions/ Ulcerations Neck: Supple, No JVD, Negative Carotid Bruits, Trachea Midline, Thyroid Normal Size and Texture Lungs: Clear to auscultation, Normal air movement, No rhonchi, No wheeze, No rales Cardiovascular: Regular rate, Regular Rhythm, Normal S1, Normal S2, PMI Normal Abdomen: Bowel Sounds Present, Soft, Non Tender, Non-Distended, No Hepato-splenomegaly Extremities: No clubbing, No cyanosis, No edema Skin: No rashes, No breakdown Lymphatic: No Cervical, Supraclavicular, or Inguinal Adenopathy Neurological: Cranial nerves II-XII grossly intact, Motor Exam 5/5 strength throughout Psych/Mental Status: Normal Affect, Appropriate, Alert and oriented to time, place, person, mood and affect Vital Signs Temp Pulse Resp BP Pulse Ox 98.5 F 75 16 93/60 95 10/26/18 03:54 10/26/18 06:38 10/26/18 03:54 10/26/18 06:38 10/26/18 07:16 Oxygen Delivery Method Room Air Weight: 157 lb 6.561 oz Body Mass Index (BMI) 27.4 Intake and Output for Last 24 Hours 10/24/18 10/25/18 10/26/18 23:59 23:59 23:59 Intake Total 600 / 600 Balance 600 / 600 Laboratory Tests Past 24 Hrs 10/26/18 10/26/18 05:46 05:46 PT 39.0 H INR 4.0 H* Potassium 3.1 L Medical Necessity - Tobacco Use Smoking Status: Current every day smoker Tobacco Use: Vapor Assessment/Plan This is a 42 years old female patient admitted because of acute opioid/Suboxone withdrawal for medical stabilization. #1 acute opioid/Suboxone withdrawal: Patient has been on Suboxone since Jan, 2018, abruptly stopped taking Suboxone 3 days before admission. At this time, she is on [facility] protocol for opiate withdrawal but without Subutex or Librium. She is on symptomatic treatment with as needed Catapres, Vistaril, methocarbamol, Zofran, Mirapex. Her vital signs are stable. Her routine blood remarkable for hypokalemia, otherwise normal. Urine drug screen was negative. Blood alcohol level was less than 3. I explained to the patient that Suboxone is a very long acting medicine and withdrawal from it may take a long time if the drug is abruptly discontinued. We agreed to call her Suboxone doctor to see if she can prescribe her Suboxone upon discharge and if that is the case, we can start her on Subutex taper while she is here. Plan to continue same treatment for now. #2 hypokalemia: She is on potassium replacement, her potassium is still low at 3.1 today. Plan to increase K Dur to 40 mEq twice daily, repeat potassium tomorrow morning. #3 factor V Leiden/history of PEs: On Coumadin, INR supratherapeutic. Today's INR is 4, plan to hold Coumadin for tonight, repeat INR tomorrow morning. #4 anxiety/depression: Continue risperidone Effexor and Topamax. #5 DVT prophylaxis: INR is 4. This note was generated with [employer] dictation software. It may contain incorrect words, spelling, and punctuation that were not noted in checking the note before signing. Code Visit Inpatient E&M: 29585 Subs Hosp L2
[2018-10-26] MEDS: Acyclovir 200 MG Capsule 400 MG PO ×2 (10:07→21:32)
[2018-10-26] MEDS: Topiramate 25 MG Tablet 75 MG PO ×2 (10:08→21:32)
[2018-10-26] MEDS: RisperiDONE 0.5 MG Tablet PO ×2 (10:09→21:32)
[2018-10-26] MEDS: Ondansetron ODT 4 MG Tablet PO (10:09)
[2018-10-26] MEDS: Methocarbamol 750 MG Tablet PO ×2 (10:09→19:57)
[2018-10-26] MEDS: Furosemide 40 MG Tablet PO (10:09)
[2018-10-26] MEDS: levETIRAcetam 500 MG Tablet PO ×2 (10:09→21:32)
[2018-10-26] MEDS: Venlafaxine XR 150 MG Capsule PO (10:09)
--- NOTE | 2018-10-26 10:22 | [facility] ---
[facility] consulted with patient per request from [place] [facility]. I accepted this patient as a [facility] patient and will assist with discharge planning. Per Dr. Chloé Arias would like to know that Dr. Herrera at [facility] is going to continue MAT with patient. I called [facility] to confirm with Dr. Herrera's nurse, Levi. Per Levi he will contact Dr. Herrera but at this time he doesn't see any reason why she would not continue to be seen by Dr. Herrera.
[2018-10-26] MEDS: Pramipexole Di-HCl 0.25 MG Tablet PO ×2 (15:16→21:32)
[2018-10-27 01:39] VITALS: BP 86/45; PULSE 61; RESP 16; TEMP 36.6
[2018-10-27] MEDS: hydrOXYzine PAM 25 MG Capsule 50 MG PO ×2 (01:54→22:23)
[2018-10-27] MEDS: Ketorolac 10 MG Tablet PO (01:54)
[2018-10-27] MEDS: Dicyclomine 10 MG Capsule 20 MG PO ×2 (01:54→08:21)
[2018-10-27 07:40] LABS: Potassium 3.4 mmol/L (3.5-5.1)
[2018-10-27 08:00] VITALS: O2SAT 93
[2018-10-27 08:12] VITALS: BP 86/46; PULSE 70; RESP 16; TEMP 36.7
[2018-10-27] MEDS: Methocarbamol 750 MG Tablet PO (08:22)
[2018-10-27] MEDS: Venlafaxine XR 150 MG Capsule PO (08:23)
[2018-10-27] MEDS: Furosemide 40 MG Tablet PO (08:23)
[2018-10-27] MEDS: RisperiDONE 0.5 MG Tablet PO ×2 (08:23→22:23)
[2018-10-27] MEDS: Topiramate 25 MG Tablet 75 MG PO ×2 (08:23→22:23)
[2018-10-27] MEDS: Acyclovir 200 MG Capsule 400 MG PO ×2 (08:23→22:23)
[2018-10-27] MEDS: levETIRAcetam 500 MG Tablet PO ×2 (08:23→22:23)
--- NOTE | 2018-10-27 10:06 | [facility]VISION ---
Patient will go to clinical appointment with [facility] to re establish care and Suboxone taper. Appointment is 11-02-18.
--- NOTE | 2018-10-27 10:28 | PCM.PROGNOTE ---
Subjective: Chief complaint: Follow-up after admission for acute Suboxone withdrawal. Patient seen and examined. No acute events overnight. She reported no significant improvement of her symptoms. Not able to sleep sufficiently at night. Abdominal pain and diarrhea improved, no more nausea. Her vital signs are stable. - Physical Exam General: Alert, Oriented x3, Cooperative, No apparent distress HEENT: Atraumatic, PERRLA, EOMI, Normocephalic Oral: Moist Mucosa, No Gingival or Mucosal Lesions/ Ulcerations Neck: Supple, No JVD, Negative Carotid Bruits, Trachea Midline, Thyroid Normal Size and Texture Lungs: Clear to auscultation, Normal air movement, No rhonchi, No wheeze, No rales Cardiovascular: Regular rate, Regular Rhythm, Normal S1, Normal S2 Abdomen: Bowel Sounds Present, Soft, Non Tender, Non-Distended, No Hepato-splenomegaly Extremities: No clubbing, No cyanosis, No edema Skin: No rashes, No breakdown Lymphatic: No Cervical, Supraclavicular, or Inguinal Adenopathy Neurological: Cranial nerves II-XII grossly intact, Neuro grossly intact Psych/Mental Status: Normal Affect, Appropriate Vital Signs Temp Pulse Resp BP Pulse Ox 98.0 F 70 16 86/46 L 93 10/27/18 08:12 10/27/18 08:12 10/27/18 08:12 10/27/18 08:12 10/27/18 08:00 Oxygen Delivery Method Room Air Weight: 157 lb 6.561 oz Body Mass Index (BMI) 27.4 Intake and Output for Last 24 Hours 10/25/18 10/26/18 10/27/18 23:59 23:59 23:59 Intake Total 1320 / 1320 660 / 660 Balance 1320 / 1320 660 / 660 Laboratory Tests Past 24 Hrs 10/27/18 10/27/18 10/27/18 05:56 05:56 06:55 PT 39.0 H INR 4.0 H* Potassium Cancelled 3.4 L Medical Necessity - Tobacco Use Smoking Status: Current every day smoker Tobacco Use: Vapor Assessment/Plan This is a 42 years old female patient admitted because of acute opioid/Suboxone withdrawal for medical stabilization. #1 acute opioid/Suboxone withdrawal: She is on as needed Catapres, Bentyl, Vistaril, Toradol, methocarbamol, Mirapex and Zofran. Patient has been on Suboxone since Jan, 2018, abruptly stopped taking Suboxone 3 days before admission. Her vital signs are stable. Her routine blood remarkable for hypokalemia, otherwise normal. Urine drug screen was negative. Blood alcohol level was less than 3. Since Suboxone is a very long-acting drug, I recommended that patient should go back on Suboxone and to go for a long taper. We called her Suboxone doctor's office and they agreed to prescribe Suboxone for him as outpatient starting tomorrow. Plan to start Subutex tapering course today, DC home tomorrow and to start Suboxone by Dr. Mercedes tomorrow. #2 hypokalemia: She is on potassium replacement, her potassium is 3.4 today, improved, continue potassium supplement. #3 factor V Leiden/history of PEs: On Coumadin, INR supratherapeutic. Again, today's INR is 4, plan to keep holding Coumadin for tonight, repeat INR tomorrow morning. #4 anxiety/depression: Continue risperidone Effexor and Topamax. #5 DVT prophylaxis: INR is 4. This note was generated with [employer] dictation software. It may contain incorrect words, spelling, and punctuation that were not noted in checking the note before signing. Code Visit Inpatient E&M: 62017 Subs Hosp L2
--- NOTE | 2018-10-27 10:32 | PN_ITS ---
Subjective: Chief complaint: Follow-up after admission for acute Suboxone withdrawal. Patient seen and examined. No acute events overnight. She reported no s ignificant improvement of her symptoms. Not able to sleep sufficiently at night. Abdominal pain and diarrhea improved, no more nausea. Her vital signs are stable. - Physical Exam General: Alert, Oriented x3, Cooperative, No apparent distress HEENT: Atraumatic, PERRLA, EOMI, Normocephalic Oral: Moist Mucosa, No Gingival or Mucosal Lesions/ Ulcerations Neck: Supple, No JVD, Negative Carotid Bruits, Trachea Midline, Thyroid Normal Size and Texture Lungs: Clear to auscultation, Normal air movement, No rhonchi, No wheeze, No rales Cardiovascular: Regular rate, Regular Rhythm, Normal S1, Normal S2 Abdomen: Bowel Sounds Present, Soft, Non Tender, Non-Distended, No Hepato- splenomegaly Extremities: No clubbing, No cyanosis, No edema Skin: No rashes, No breakdown Lymphatic: No Cervical, Supraclavicular, or Inguinal Adenopathy Neurological: Cranial nerves II-XII grossly intact, Neuro grossly intact Psych/Mental Status: Normal Affect, Appropriate Vital Signs Temp Pulse Resp BP Pulse Ox 98.0 F 70 16 86/46 L 93 10/27/18 08:12 10/27/18 08:12 10/27/18 08:12 10/27/18 08:12 10/27/18 08:00 Oxygen Delivery Method Room Air Weight: 157 lb 6.561 oz Body Mass Index (BMI) 27.4 Intake and Output for Last 24 Hours 10/25/18 10/26/18 10/27/18 23:59 23:59 23:59 Intake Total 1320 / 1320 660 / 660 Balance 1320 / 1320 660 / 660 Laboratory Tests Past 24 Hrs 10/27/18 10/27/18 10/27/18 05:56 05:56 06:55 PT 39.0 H INR 4.0 H* Potassium Cancelled 3.4 L Medical Necessity - Tobacco Use Smoking Status: Current every day smoker Tobacco Use: Vapor Assessment/Plan This is a 42 years old female patient admitted because of acute opioid/Suboxone withdrawal for medical stabilization. #1 acute opioid/Suboxone withdrawal: She is on as needed Catapres, Bentyl, Vistaril, Toradol, methocarbamol, Mirapex and Zofran. Patient has been on Suboxone since Jan, 2018, abruptly stopped taking Suboxone 3 days before admission. Her vital signs are stable. Her routine blood remarkable for hypokalemia, otherwise normal. Urine drug screen was negative. Blood alcohol level was less than 3. Since Suboxone is a very long-acting drug, I recommended that patient should go back on Suboxone and to go for a long taper. We called her Suboxone doctor's office and they agreed to prescribe Suboxone for him as outpatient starting tomorrow. Plan to start Subutex tapering course today, DC home tomorrow and to start Suboxone by Dr. Mercedes tomorrow. #2 hypokalemia: She is on potassium replacement, her potassium is 3.4 today, improved, continue potassium supplement. #3 factor V Leiden/history of PEs: On Coumadin, INR supratherapeutic. Again, today's INR is 4, plan to keep holding Coumadin for tonight, repeat INR tomorrow morning. #4 anxiety/depression: Continue risperidone Effexor and Topamax. #5 DVT prophylaxis: INR is 4. This note was generated with [employer] dictation software. It may contain incorrect words, spelling, and punctuation that were not noted in checking the note before signing. Code Visit Inpatient E&M: 33619 Subs Hosp L2
[2018-10-27] MEDS: Buprenorphine HCl 2 MG TAB.SUBL SL ×2 (10:36→18:19)
[2018-10-27 13:40] VITALS: BP 91/58; PULSE 68; RESP 16; TEMP 36.8
[2018-10-27 17:50] VITALS: BP 93/63; PULSE 68; RESP 16; TEMP 36.8
[2018-10-27 22:14] VITALS: BP 99/66; PULSE 72; RESP 16; TEMP 36.7
[2018-10-27] MEDS: Pramipexole Di-HCl 0.25 MG Tablet PO (22:23)
[2018-10-28 02:21] VITALS: BP 96/55; PULSE 68; RESP 16; TEMP 36.6
[2018-10-28] MEDS: Methocarbamol 750 MG Tablet PO ×3 (02:23→20:08)
[2018-10-28] MEDS: Buprenorphine HCl 2 MG TAB.SUBL SL ×3 (02:23→18:27)
[2018-10-28 06:03] VITALS: BP 94/57; PULSE 71; RESP 16; TEMP 36.4
[2018-10-28] MEDS: Ketorolac 10 MG Tablet PO (06:10)
[2018-10-28] MEDS: cloNIDine HCl 0.1 MG Tablet PO (06:10)
[2018-10-28 07:56] LABS: International Normalized Ratio 2.5; Prothrombin Time (Protime)PT. 26.9 SECONDS (11.7-14.9)
[2018-10-28] MEDS: Acyclovir 200 MG Capsule 400 MG PO ×2 (08:10→21:32)
[2018-10-28] MEDS: Furosemide 40 MG Tablet PO (08:11)
[2018-10-28] MEDS: Venlafaxine XR 150 MG Capsule PO (08:11)
[2018-10-28] MEDS: Topiramate 25 MG Tablet 75 MG PO ×2 (08:12→21:33)
[2018-10-28] MEDS: RisperiDONE 0.5 MG Tablet PO ×2 (08:12→21:32)
[2018-10-28] MEDS: levETIRAcetam 500 MG Tablet PO ×2 (08:12→21:32)
[2018-10-28 08:16] VITALS: BP 89/45; PULSE 64; RESP 16; TEMP 36.8; O2SAT 99
[2018-10-28] MEDS: Pramipexole Di-HCl 0.25 MG Tablet PO ×2 (11:12→21:32)
[2018-10-28 11:25] VITALS: BP 88/61; PULSE 81; RESP 16; TEMP 36.6; O2SAT 98
[2018-10-28 14:29] VITALS: BP 83/46; PULSE 73; RESP 16; TEMP 36.8; O2SAT 97
--- NOTE | 2018-10-28 14:36 | PCM.PROGNOTE ---
Subjective: Chief complaint: Follow-up after admission for acute Suboxone withdrawal. Patient seen and examined. No acute events overnight. She still having intermittent recurrent symptoms. All over, she is feeling a little bit better. Her vitals are stable. Yesterday, I was under the impression and I was told that her Suboxone doctor can prescribe Suboxone today and she can go home. Apparently, Suboxone and will be prescribed by her doctor until Tuesday. She was started on Subutex taper yesterday. - Physical Exam General: Alert, Oriented x3, Cooperative, No apparent distress HEENT: Atraumatic, PERRLA, EOMI, Normocephalic Oral: Moist Mucosa, No Gingival or Mucosal Lesions/ Ulcerations Neck: Supple, No JVD, Negative Carotid Bruits, Trachea Midline, Thyroid Normal Size and Texture Lungs: Clear to auscultation, Normal air movement, No rhonchi, No wheeze, No rales Cardiovascular: Regular rate, Regular Rhythm, Normal S1, Normal S2, No murmurs Abdomen: Bowel Sounds Present, Soft, Non Tender, Non-Distended, No Hepato-splenomegaly Extremities: No clubbing, No cyanosis, No edema Skin: No rashes, No breakdown Lymphatic: No Cervical, Supraclavicular, or Inguinal Adenopathy Neurological: Cranial nerves II-XII grossly intact, Neuro grossly intact Psych/Mental Status: Normal Affect, Appropriate Vital Signs Temp Pulse Resp BP Pulse Ox 98.2 F 73 16 83/46 L 97 10/28/18 14:29 10/28/18 14:29 10/28/18 14:29 10/28/18 14:29 10/28/18 14:29 Oxygen Delivery Method Room Air Weight: 157 lb 6.561 oz Body Mass Index (BMI) 27.4 Intake and Output for Last 24 Hours 10/26/18 10/27/18 10/28/18 23:59 23:59 23:59 Intake Total 1320 / 1320 1510 / 1510 1100 / 1100 Balance 1320 / 1320 1510 / 1510 1100 / 1100 Laboratory Tests Past 24 Hrs 10/28/18 07:05 PT 26.9 H INR 2.5 Medical Necessity - Tobacco Use Smoking Status: Current every day smoker Tobacco Use: Vapor Assessment/Plan This is a 42 years old female patient admitted because of acute opioid/Suboxone withdrawal for medical stabilization. #1 acute opioid/Suboxone withdrawal: Started on Subutex taper yesterday, remains on as needed Catapres, Bentyl, Vistaril, Toradol, methocarbamol, Mirapex and Zofran. Patient has been on Suboxone since Jan, 2018, abruptly stopped taking Suboxone 3 days before admission. Her vital signs are stable. Reportedly, she is supposed to get Suboxone prescription from her doctor but that one tablet until Tuesday. Plan to continue Subutex taper, DC home Tuesday. #2 hypokalemia: She is on potassium replacement. #3 factor V Leiden/history of PEs: On Coumadin, today's INR is 2.5. Plan to resume Coumadin tonight, repeat INR Tuesday. #4 anxiety/depression: Continue risperidone Effexor and Topamax. #5 DVT prophylaxis: INR is 2.5. This note was generated with [employer] dictation software. It may contain incorrect words, spelling, and punctuation that were not noted in checking the note before signing. Code Visit Inpatient E&M: 09405 Subs Hosp L2
--- NOTE | 2018-10-28 14:39 | PN_ITS ---
Subjective: Chief complaint: Follow-up after admission for acute Suboxone withdrawal. Patient seen and examined. No acute events overnight. She still having intermittent recurrent symptoms. All over, she is feeling a little bit better. Her vitals are stable. Yesterday, I was under the impression and I was told that her Suboxone doctor can prescribe Suboxone today and she can go home. Apparently, Suboxone and will be prescribed by her doctor until Tuesday. She was started on Subutex taper yesterday. - Physical Exam General: Alert, Oriented x3, Cooperative, No apparent distress HEENT: Atraumatic, PERRLA, EOMI, Normocephalic Oral: Moist Mucosa, No Gingival or Mucosal Lesions/ Ulcerations Neck: Supple, No JVD, Negative Carotid Bruits, Trachea Midline, Thyroid Normal Size and Texture Lungs: Clear to auscultation, Normal air movement, No rhonchi, No wheeze, No rales Cardiovascular: Regular rate, Regular Rhythm, Normal S1, Normal S2, No murmurs Abdomen: Bowel Sounds Present, Soft, Non Tender, Non-Distended, No Hepato- splenomegaly Extremities: No clubbing, No cyanosis, No edema Skin: No rashes, No breakdown Lymphatic: No Cervical, Supraclavicular, or Inguinal Adenopathy Neurological: Cranial nerves II-XII grossly intact, Neuro grossly intact Psych/Mental Status: Normal Affect, Appropriate Vital Signs Temp Pulse Resp BP Pulse Ox 98.2 F 73 16 83/46 L 97 10/28/18 14:29 10/28/18 14:29 10/28/18 14:29 10/28/18 14:29 10/28/18 14:29 Oxygen Delivery Method Room Air Weight: 157 lb 6.561 oz Body Mass Index (BMI) 27.4 Intake and Output for Last 24 Hours 10/26/18 10/27/18 10/28/18 23:59 23:59 23:59 Intake Total 1320 / 1320 1510 / 1510 1100 / 1100 Balance 1320 / 1320 1510 / 1510 1100 / 1100 Laboratory Tests Past 24 Hrs 10/28/18 07:05 PT 26.9 H INR 2.5 Medical Necessity - Tobacco Use Smoking Status: Current every day smoker Tobacco Use: Vapor Assessment/Plan This is a 42 years old female patient admitted because of acute opioid/Suboxone withdrawal for medical stabilization. #1 acute opioid/Suboxone withdrawal: Started on Subutex taper yesterday, remains on as needed Catapres, Bentyl, Vistaril, Toradol, methocarbamol, Mirapex and Zofran. Patient has been on Suboxone since Jan, 2018, abruptly stopped taking Suboxone 3 days before admission. Her vital signs are stable. Reportedly, she is supposed to get Suboxone prescription from her doctor but that one tablet until Tuesday. Plan to continue Subutex taper, DC home Tuesday. #2 hypokalemia: She is on potassium replacement. #3 factor V Leiden/history of PEs: On Coumadin, today's INR is 2.5. Plan to resume Coumadin tonight, repeat INR Tuesday. #4 anxiety/depression: Continue risperidone Effexor and Topamax. #5 DVT prophylaxis: INR is 2.5. This note was generated with [employer] dictation software. It may contain incorrect words, spelling, and punctuation that were not noted in checking the note before signing. Code Visit Inpatient E&M: 14818 Subs Hosp L2
[2018-10-28 21:30] VITALS: BP 100/65; PULSE 66; RESP 16; TEMP 36.8
[2018-10-29 02:01] VITALS: BP 107/57; PULSE 78; RESP 16; TEMP 36.9
[2018-10-29] MEDS: Buprenorphine HCl 2 MG TAB.SUBL SL ×2 (02:04→14:21)
[2018-10-29] MEDS: Methocarbamol 750 MG Tablet PO ×3 (02:04→20:10)
[2018-10-29 05:20] VITALS: BP 90/53; PULSE 79; RESP 14; TEMP 36.6
[2018-10-29] MEDS: Pramipexole Di-HCl 0.25 MG Tablet PO ×2 (05:22→20:13)
[2018-10-29] MEDS: Ketorolac 10 MG Tablet PO ×2 (05:22→15:04)
[2018-10-29] MEDS: Acyclovir 200 MG Capsule 400 MG PO ×2 (08:17→21:54)
[2018-10-29] MEDS: Venlafaxine XR 150 MG Capsule PO (08:17)
[2018-10-29] MEDS: levETIRAcetam 500 MG Tablet PO ×2 (08:17→21:55)
[2018-10-29] MEDS: Topiramate 25 MG Tablet 75 MG PO ×2 (08:18→21:55)
[2018-10-29] MEDS: RisperiDONE 0.5 MG Tablet PO ×2 (08:18→21:55)
[2018-10-29] MEDS: Furosemide 40 MG Tablet PO (08:18)
[2018-10-29 08:22] VITALS: BP 100/62; PULSE 64; PULSE 67; RESP 16; TEMP 36.6; O2SAT 96
--- NOTE | 2018-10-29 10:17 | PCM.PROGNOTE ---
Subjective: Chief complaint: Follow-up after admission for acute Suboxone withdrawal. Patient seen and examined. No acute events overnight. She is feeling better, was able to sleep last night. Her symptoms are improved after started on Subutex taper. Her vital signs are stable. - Physical Exam General: Alert, Oriented x3, Cooperative, No apparent distress HEENT: Atraumatic, PERRLA, EOMI, Normocephalic Oral: Moist Mucosa, No Gingival or Mucosal Lesions/ Ulcerations Neck: Supple, No JVD, Negative Carotid Bruits, Trachea Midline, Thyroid Normal Size and Texture Lungs: Clear to auscultation, Normal air movement, No rhonchi, No wheeze, No rales Cardiovascular: Regular rate, Regular Rhythm, Normal S1, Normal S2, PMI Normal Abdomen: Bowel Sounds Present, Soft, Non Tender, Non-Distended, No Hepato-splenomegaly Extremities: No clubbing, No cyanosis, No edema Skin: No rashes, No breakdown Lymphatic: No Cervical, Supraclavicular, or Inguinal Adenopathy Neurological: Cranial nerves II-XII grossly intact, Neuro grossly intact Psych/Mental Status: Normal Affect, Appropriate Vital Signs Temp Pulse Resp BP Pulse Ox 98 F 67 16 100/62 96 10/29/18 08:22 10/29/18 08:22 10/29/18 08:22 10/29/18 08:22 10/29/18 08:22 Oxygen Delivery Method Room Air Weight: 157 lb 6.561 oz Body Mass Index (BMI) 27.4 Intake and Output for Last 24 Hours 10/27/18 10/28/18 10/29/18 23:59 23:59 23:59 Intake Total 1510 / 1510 1500 / 1500 1600 / 1600 Balance 1510 / 1510 1500 / 1500 1600 / 1600 Medical Necessity - Tobacco Use Smoking Status: Current every day smoker Tobacco Use: Vapor Assessment/Plan This is a 42 years old female patient admitted because of acute opioid/Suboxone withdrawal for medical stabilization. #1 acute opioid/Suboxone withdrawal: She is on on Subutex taper, remains on as needed Catapres, Bentyl, Vistaril, Toradol, methocarbamol, Mirapex and Zofran. Patient has been on Suboxone since Jan, 2018, abruptly stopped taking Suboxone 3 days before admission. Her vital signs are stable. I explained to the patient that Suboxone is a long-acting drug and it will need long taper. [facility] office contacted her Suboxone doctor, Dr. Herrera at 180, and states that they can prescribe her Suboxone Tuesday morning and then she can be discharged. Patient will need prolonged taper Suboxone to be able to come of off it. #2 hypokalemia: She is on potassium replacement. #3 factor V Leiden/history of PEs: On Coumadin, yesterday's INR is 2.5. She is back on Coumadin, plan to repeat INR tomorrow morning. #4 anxiety/depression: Continue risperidone Effexor and Topamax. #5 DVT prophylaxis: INR is 2.5. This note was generated with [employer] dictation software. It may contain incorrect words, spelling, and punctuation that were not noted in checking the note before signing. Code Visit Inpatient E&M: 64168 Subs Hosp L2
--- NOTE | 2018-10-29 10:20 | PN_ITS ---
Subjective: Chief complaint: Follow-up after admission for acute Suboxone withdrawal. Patient seen and examined. No acute events overnight. She is feeling better, was able to sleep last night. Her symptoms are improved after started on Subutex taper. Her vital signs are stable. - Physical Exam General: Alert, Oriented x3, Cooperative, No apparent distress HEENT: Atraumatic, PERRLA, EOMI, Normocephalic Oral: Moist Mucosa, No Gingival or Mucosal Lesions/ Ulcerations Neck: Supple, No JVD, Negative Carotid Bruits, Trachea Midline, Thyroid Normal Size and Texture Lungs: Clear to auscultation, Normal air movement, No rhonchi, No wheeze, No rales Cardiovascular: Regular rate, Regular Rhythm, Normal S1, Normal S2, PMI Normal Abdomen: Bowel Sounds Present, Soft, Non Tender, Non-Distended, No Hepato- splenomegaly Extremities: No clubbing, No cyanosis, No edema Skin: No rashes, No breakdown Lymphatic: No Cervical, Supraclavicular, or Inguinal Adenopathy Neurological: Cranial nerves II-XII grossly intact, Neuro grossly intact Psych/Mental Status: Normal Affect, Appropriate Vital Signs Temp Pulse Resp BP Pulse Ox 98 F 67 16 100/62 96 10/29/18 08:22 10/29/18 08:22 10/29/18 08:22 10/29/18 08:22 10/29/18 08:22 Oxygen Delivery Method Room Air Weight: 157 lb 6.561 oz Body Mass Index (BMI) 27.4 Intake and Output for Last 24 Hours 10/27/18 10/28/18 10/29/18 23:59 23:59 23:59 Intake Total 1510 / 1510 1500 / 1500 1600 / 1600 Balance 1510 / 1510 1500 / 1500 1600 / 1600 Medical Necessity - Tobacco Use Smoking Status: Current every day smoker Tobacco Use: Vapor Assessment/Plan This is a 42 years old female patient admitted because of acute opioid/Suboxone withdrawal for medical stabilization. #1 acute opioid/Suboxone withdrawal: She is on on Subutex taper, remains on as needed Catapres, Bentyl, Vistaril, Toradol, methocarbamol, Mirapex and Zofran. Patient has been on Suboxone since Jan, 2018, abruptly stopped taking Suboxone 3 days before admission. Her vital signs are stable. I explained to the patient that Suboxone is a long-acting drug and it will need long taper. [facility] office contacted her Suboxone doctor, Dr. Herrera at 180, and states that they can prescribe her Suboxone Tuesday morning and then she can be discharged. Patient will need prolonged taper Suboxone to be able to come of off it. #2 hypokalemia: She is on potassium replacement. #3 factor V Leiden/history of PEs: On Coumadin, yesterday's INR is 2.5. She is back on Coumadin, plan to repeat INR tomorrow morning. #4 anxiety/depression: Continue risperidone Effexor and Topamax. #5 DVT prophylaxis: INR is 2.5. This note was generated with [employer] dictation software. It may contain incorrect words, spelling, and punctuation that were not noted in checking the note before signing. Code Visit Inpatient E&M: 04253 Subs Hosp L2
[2018-10-29 14:25] VITALS: BP 102/64; PULSE 71; RESP 16; TEMP 36.8
[2018-10-29 14:27] VITALS: BP 102/64; PULSE 71; RESP 16; TEMP 36.8; O2SAT 97
[2018-10-29] MEDS: cloNIDine HCl 0.1 MG Tablet PO (20:10)
[2018-10-29 22:00] VITALS: BP 106/67; PULSE 78; RESP 16; TEMP 36.8
[2018-10-30] MEDS: hydrOXYzine PAM 25 MG Capsule 50 MG PO (00:23)
[2018-10-30] MEDS: Ketorolac 10 MG Tablet PO (00:23)
[2018-10-30 02:20] VITALS: BP 92/60; PULSE 70; RESP 16; TEMP 37
[2018-10-30] MEDS: Buprenorphine HCl 2 MG TAB.SUBL SL (02:24)
[2018-10-30 06:08] LABS: International Normalized Ratio 2.7; Prothrombin Time (Protime)PT. 29.1 SECONDS (11.7-14.9)
[2018-10-30 08:05] VITALS: BP 99/54; PULSE 76; RESP 16; TEMP 36.7; O2SAT 96
[2018-10-30] MEDS: cloNIDine HCl 0.1 MG Tablet PO (08:05)
[2018-10-30] MEDS: Methocarbamol 750 MG Tablet PO (08:05)
[2018-10-30] MEDS: Acyclovir 200 MG Capsule 400 MG PO (08:06)
[2018-10-30] MEDS: Furosemide 40 MG Tablet PO (08:07)
[2018-10-30] MEDS: Topiramate 25 MG Tablet 75 MG PO (08:07)
[2018-10-30] MEDS: RisperiDONE 0.5 MG Tablet PO (08:07)
[2018-10-30] MEDS: levETIRAcetam 500 MG Tablet PO (08:07)
[2018-10-30] MEDS: Venlafaxine XR 150 MG Capsule PO (08:08)
--- NOTE | 2018-10-30 09:14 | DCINST_ITS ---
You will use the following diet at home:: No restrictions Discharge Activity: May not drive while taking narcotic pain medications. Allergies/Adverse Reactions: Allergies gabapentin [From Neurontin] Allergy (Verified 10/25/18 03:06) Rash morphine Allergy (Verified 10/25/18 03:06) HYPOTENSION Penicillins Allergy (Verified 10/25/18 03:06) Rash Sulfa (Sulfonamide Antibiotics) Allergy (Verified 10/25/18 03:06) Rash PT STATES ONLY HAPPENED ONCE BUT HAS TAKEN SINCE W/ NO PROBLEM Medications to take at Discharge Furosemide [Lasix] 40 mg PO DAILY 09/10/16 Potassium Chloride [K-Dur] 20 meq PO DAILY 09/10/16 Warfarin [Coumadin] 5 mg PO DAILY 09/10/16 Risperidone 0.5 mg PO BID 08/03/17 Venlafaxine XR [Effexor Xr] 150 mg PO DAILY 08/03/17 Ropinirole HCl [Requip] 0.5 mg PO QHS 11/11/17 Topiramate [Topamax] 75 mg PO DAILY 11/11/17 Topiramate [Topamax] 75 mg PO QHS 07/26/18 Levetiracetam [Keppra] 500 mg PO BID 10/25/18 Valacyclovir HCl [Valtrex] 500 mg PO DAILY 10/25/18 Primary Care Physician: Edwin Wilson MD [Primary Care Provider] - Please follow up with your Primary Care Physician in: in 1-2 weeks Test Results: Test results from this visit will be discussed in further detail at your follow- up appointment, if applicable. Please Follow Up With: with your addiction Dr @ 180 Proposed Discharge Date: 10/30/18
--- NOTE | 2018-10-30 09:15 | PCM.DC.SUM ---
Discharge Date and Diagnosis Date of Admission: 10/25/18 Date of Discharge: 10/30/18 - Primary Discharge Diagnosis Active and Suspected Problems Acute opioid withdrawal (Acute) - Secondary Discharge Diagnosis Chronic Problems Anxiety (Chronic) Depression (Chronic) History of pulmonary embolus (PE) (Chronic) lifelong coumadin Factor V Leiden mutation (Chronic) Obesity (BMI 30.0-34.9) (Chronic) Hyperlipidemia (Chronic) Presence of IVC filter (Chronic) Hypertension (Chronic) Hospital Course and Treatment Consultations 10/25/18 09:41 Consult: [facility] Routine Consulting Provider: Consulted Physician Type:: [facility] Reason for consult:: suboxone withdrawl Operations: None Summary of Care Provided: The patient is a 42 year old F with history of Suboxone use who presented with acute opioid withdrawal 1. Acute opiate withdrawal secondary to continue Suboxone use. Patient was admitted to regular nursing floor placed on Suboxone taper. Plan is for patient to follow-up with her admission physician to continue with 80% Suboxone is a long-acting medication 2. Hypokalemia present on admission corrected per protocol 3. History of PE secondary to factor V Leyden deficiency patient is on Coumadin continue 4. Depression with anxiety patient is a respiratory effects as well as Topamax 5. DVT prophylaxis on Coumadin with a therapeutic INR - Physical Exam General: Alert HEENT: Atraumatic Neck: Supple Lungs: Clear to auscultation Cardiovascular: Regular rate, Regular Rhythm Neurological: Neuro grossly intact Psych/Mental Status: Normal Affect Vital Signs Temp Pulse Resp BP Pulse Ox 98.6 F 70 16 92/60 97 10/30/18 02:20 10/30/18 02:20 10/30/18 02:20 10/30/18 02:20 10/29/18 14:27 Oxygen Delivery Method Room Air Weight: 71.4 kg Body Mass Index (BMI) 27.4 Intake and Output for Last 24 Hours 10/28/18 10/29/18 10/30/18 23:59 23:59 23:59 Intake Total 1500 / 1500 2500 / 2500 850 / 850 Balance 1500 / 1500 2500 / 2500 850 / 850 Laboratory Tests Past 24 Hrs 10/30/18 05:30 PT 29.1 H INR 2.7 Discharge Diet: No Restrictions Discharge Activity: May not drive while taking narcotic pain medications. Home Medications: Medications to take at Discharge Furosemide [Lasix] 40 mg PO DAILY 09/10/16 Potassium Chloride [K-Dur] 20 meq PO DAILY 09/10/16 Warfarin [Coumadin] 5 mg PO DAILY 09/10/16 Risperidone 0.5 mg PO BID 08/03/17 Venlafaxine XR [Effexor Xr] 150 mg PO DAILY 08/03/17 Ropinirole HCl [Requip] 0.5 mg PO QHS 11/11/17 Topiramate [Topamax] 75 mg PO DAILY 11/11/17 Topiramate [Topamax] 75 mg PO QHS 07/26/18 Levetiracetam [Keppra] 500 mg PO BID 10/25/18 Valacyclovir HCl [Valtrex] 500 mg PO DAILY 10/25/18 Primary Care Physician: Edwin Wilson MD [Primary Care Provider] - Please follow up with your Primary Care Physician in: in 1-2 weeks Please Follow Up With: with your addiction Dr @ 180 Disposition: Home Minutes spent on discharge:: 34 Patient Condition:: Stable Medical Necessity - Tobacco Use Smoking Status: Current every day smoker Tobacco Use: Vapor Meaningful Use Info Meaningful Use Diagnoses (Choose all that apply): None applicable Code Visit Inpatient E&M: 37642 Disch Hosp
== END 2018-10-30 10:03 | disposition home or self-care (01) | DRG 897 ==
LOC: ED 03:38 → MS3 06:37
PROVIDERS: Hospitalist; Admitting Provider Hospitalist; Emergency Provider Emergency Medicine; Visit Provider Internal Medicine
DX: F11.23 Opioid dependence with withdrawal (principal); D68.51 Activated protein C resistance; E78.5 Hyperlipidemia, unspecified; E87.6 Hypokalemia; I10 Essential (primary) hypertension; Z79.01 Long term (current) use of anticoagulants; Z86.711 Personal history of pulmonary embolism; E66.9 Obesity, unspecified; Z68.27 Body mass index [BMI] 27.0-27.9, adult; Z95.828 Presence of other vascular implants and grafts; F17.290 Nicotine dependence, other tobacco product, uncomplicated; F41.8 Other specified anxiety disorders
CPT/HCPCS: 36415; 80053; 80307; 80320; 83735; 84132; 85025; 85610; 99281; 99406; J7030; A4216; G0480

== ENCOUNTER 2018-12-13 02:53 | Emergency (ER) | payer MEDICARE, MEDICAID, SELFPAY ==
[2018-10-25 06:59] VITALS: BMI 27.4
[2018-12-13 02:55] VITALS: BP 149/98; PULSE 118; RESP 17; TEMP 37.3; O2SAT 99; BMI 26.2
--- NOTE | 2018-12-13 03:13 | EKG12_ITS ---
Test Reason : CP Blood Pressure : / mmHG Vent. Rate : 098 BPM Atrial Rate : 098 BPM P-R Int : 142 ms QRS Dur : 092 ms QT Int : 336 ms P-R-T Axes : 012 013 017 degrees QTc Int : 428 ms Normal sinus rhythm Incomplete right bundle branch block Borderline ECG Confirmed by JONATHAN VASQUEZ, MERRITT ([id number]), technical writer and editor DOROTHEA RUSSELL ([id number]) on 12/14/2018 1:06:36 PM Referred By: NARDA Confirmed By:MERRITT CASTILLO MD
--- NOTE | 2018-12-13 03:20 | CT_ITS ---
STUDY: CTA CHEST REASON FOR EXAM: Female, 42 years old. Recent lower extremity DVT, now with chest pain. RADIATION DOSAGE (If Supplied By Facility): CTDIvol = ( 11.56 ) mGy, DLP = ( 294.30 ) mGycm TECHNIQUE: The examination was performed with the intravenous administration of 100ML IV Isovue 370. Post-processing of the angiographic images was performed, with multiplanar reformation and 3D reconstruction. Individualized dose optimization techniques were used for this CT. COMPARISON: None. FINDINGS: Normal enhancement of the main pulmonary artery and right and left pulmonary arteries. Normal enhancement of the bilateral peripheral pulmonary arteries. There is no demonstrated pulmonary embolism. Thoracic aorta demonstrates no aneurysmal dilatation or dissection. Normal heart and pericardium. Normal mediastinum. Normal hilar regions. Normal visualized trachea and bronchi. The lungs are well expanded. No confluent airspace infiltrate. 5 mm noncalcified nodule within the lateral segment right middle lobe, not imaged on prior CT examination of the abdomen. No pleural effusion or pneumothorax. Normal chest wall structures. Old healed versus healing rib fracture deformities noted anteriorly on the left. Visualized portions of the upper abdomen are unremarkable CT/CTA Chest W/WO Contrast IMPRESSION: 1. No evidence of acute pulmonary embolism. 2. No acute pulmonary infiltrate. 3. Noncalcified 5 mm nodule within the lateral segment right middle lobe. Continued surveillance is recommended to document stability. Electronically Signed: Molina Fierro MD at 5:03 EDT Tel , Service support ,
[2018-12-13 03:21] LABS: Absolute Lymphocyte Count 3.37 X10^3/ul (0.83-4.51); Absolute Neutrophil Count 4.5 X10^3/uL (2.0-7.7); Basophil# 0.08 X10^3/uL; Basophil% 0.9 % (0-1); Eosinophil# 0.15 X10^3/uL; Eosinophils% 1.7 % (0-5); Hematocrit 44.3 % (37-47); Hemoglobin 14.7 g/dl (12.0-15.0); Lymphocyte # 3.37 X10^3/ul (4.0); Lymphocyte % 38.9 % (19-41); Mean Corp Hgb Conc 33.2 g/gl (32-36); Mean Corpuscular Hgb 31.2 pg (27.0-32.0); Mean Corpuscular Volume 94.1 fL (81-99); Mean Platelet Vol. 8.1 fl (6.2-12.0); Monocyte# 0.54 X10^3/uL; Monocyte% 6.2 % (0-10); Neutrophil # 4.51 X10^3/uL (2.7-7.7); Neutrophil % 52.2 % (47-70); POSITIVE COUNT NO; POSITIVE DIFFERENTIAL NO; POSITIVE MORPHOLOGY NO; Platelet Count 298 K/mm3 (150-450); RBC Distribution Width CV 12.5 % (11.6-14.6); Red Blood Count 4.71 M/mm3 (4.2-5.4); White Blood Count 8.7 K/mm3 (4.4-11.0)
[2018-12-13 03:25] LABS: International Normalized Ratio 1.6; Prothrombin Time (Protime)PT. 19.2 SECONDS (11.7-14.9)
[2018-12-13] MEDS: Ondansetron 4 MG/2 ML Vial IV (03:30)
[2018-12-13] MEDS: 0.9% Normal Saline 1,000 ML 999 ML IV (03:30)
--- NOTE | 2018-12-13 04:03 | ED.VISSUMM ---
- ER Visit Summary Date of Service: 12/13/18 Chief Complaint: Pain History of Present Illness: The patient is a 42 F with a history of factor V Leiden presenting with chest tightness for 2 days, worse with deep breath. No exertional chest pain or diaphoresis. She was hospitalized 2-1/2 weeks ago at [facility] for left lower extremity DVT secondary to subtherapeutic INR. She states that she did not take her Coumadin for a month and a half prior to this. He said that this was accidental. She thought that it was in her daily blister packs of medicine but it was not. Her most recent INR 1-1/2 weeks ago after discharge was 2.5. She does have a history of DVT in both lower extremities but most recently on the left. She had a pulmonary embolism in 1995. She had an IVC filter put in at that time but she has been told that it is now ineffective and needs removed. She is currently seeing vascular surgery to schedule this. Physical Examination: She is mildly tachycardic. Other vitals are within normal limits. Pulse ox 98% on room air. Lungs clear. Moving air well. Mild tenderness left lower extremity with no obvious swelling. Strong distal pulses. Compartments are soft. Test Results: INR slightly therapeutic. She was given a dose of 1.5 mg/kg Lovenox. Other labs within normal limits. CTA chest negative for PE. Emergency Department Course and Treatment: She has strong pulses in both lower extremities compartments are soft. No swelling. No evidence of compartment syndrome or an acute ischemic event. No evidence of pulmonary embolism on CTA. EKG unremarkable and troponin negative after several days of symptoms, arguing against an acute cardiac event. INR slightly subtherapeutic. She did not take her dose yet today. She was covered with Lovenox and will resume her normal dosing. I offered to call her doctor for further instructions on possible Coumadin adjustments but she states that she is typically able to get in the same day or at least get advice on her dosing over the phone based on her INR. I did order her a dose of pain medication here initially however on review of her chart, she does have an active care plan and there is a documented history of opiate abuse, opiate addiction, and I felt that it would be dangerous to treat her with Dilaudid. She was given Zofran. She did not want other medication. Treatment Plan: Follow-up closely with her doctor Disposition: Home stable Impression: Initial encounter chest pain uncertain etiology This note was generated with [employer] dictation software. It may contain incorrect words, spelling, and punctuation that were not noted in review of the chart prior to signing ED Disposition - Plan for ED Patient: Instructions: ED Chest Pain O Referrals: Edwin Wilson MD [Primary Care Provider] - As soon as possible
[2018-12-13 04:04] LABS: Anion Gap 10 (5-15); BUN 16 mg/dL (7-18); BUN/Creat Ratio 16.7 RATIO (10-20); Chloride 109 mmol/L (98-107); Creatinine, Serum 0.96 mg/dL (0.55-1.02); EST Glomerular Filtration Rate 67 mL/min (>60); Est Glom Filt Rate - Afr Amer 82 mL/min (>60); Estimated Creatinine Clearance 62.51 ml/min; Glucose 102 mg/dL (74-106); Potassium 3.9 mmol/L (3.5-5.1); Sodium Level 141 mmol/L (136-145)
[2018-12-13] MEDS: Enoxaparin 100 MG/ML Syringe SC (04:31)
[2018-12-13 05:33] VITALS: BP 115/80; PULSE 86; RESP 16; O2SAT 98
[2018-12-13 05:55] VITALS: BP 115/80; PULSE 80; RESP 16; O2SAT 97
== END 2018-12-13 06:00 | disposition home or self-care (01) ==
PROVIDERS: Emergency Provider Emergency Medicine
DX: R07.9 Chest pain, unspecified (principal); R06.00 Dyspnea, unspecified; D68.51 Activated protein C resistance; E78.00 Pure hypercholesterolemia, unspecified; Z86.718 Personal history of other venous thrombosis and embolism; Z86.711 Personal history of pulmonary embolism; Z87.891 Personal history of nicotine dependence
CPT/HCPCS: 71275; 80048; 84484; 85025; 85610; 93005; 99285; J7030; Q9967; A4216; J2405

== ENCOUNTER 2019-01-23 07:43 | Emergency (ER) | payer MEDICARE, SELFPAY ==
[2019-01-23 07:43] VITALS: BP 125/83; PULSE 78; RESP 18; TEMP 36.9; O2SAT 100; BMI 26.6
--- NOTE | 2019-01-23 07:59 | ED.VIS.GEN ---
History of Present Illness Chief Complaint: Complaint Detail of Chief Complaint: I have a kidney infection. Informant: Patient Onset: - - Diagnosed 1 week ago Context: Sudden Onset Timing: Continuous, Waxes and wanes Quality: Urinary symptoms, documented fever of 102.0 ?F Location: Bilateral back pain Current Severity: Moderate Maximum Severity: Severe Worsened by: Palpation of the back Relieved by: Nothing Associated Symptoms: Nausea and patient states she had diarrhea for several days Narrative: Patient is a 43-year-old woman who was seen 1 week ago at [facility] after having a generalized tonic-clonic seizure. She has history of seizures. She also was diagnosed with urinary tract infection. He was prescribed cephalexin. She states she took the antibiotics till gone. She was ordered ciprofloxacin, but she states she did not fill. She states she went to [facility]. She states that the physician there was rude and reason she presents here. Patient reports frequency, dysuria and bilateral back pain. She reports documented fever with chills. She reports diarrhea for the past several days. She states she has 4-5 watery stools with mucus. She has not noted blood. She denies URI symptoms, she denies cardiovascular symptoms. She denies rash. She reports bruises secondary to blood draws. Prior similar symptoms: Yes Recent Illness/Hospitalization: Yes - Past Medical History (1) History of seizure disorder Status: Acute (2) Acute opioid withdrawal Status: Acute (3) Anxiety Status: Chronic (4) Depression Status: Chronic (5) Factor V Leiden mutation Status: Chronic (6) History of pulmonary embolus (PE) Status: Chronic Comment: lifelong coumadin (7) Hyperlipidemia Status: Chronic (8) Hypertension Status: Chronic (9) Obesity (BMI 30.0-34.9) Status: Chronic Past Medical History - Allergies and Home Meds Allergies/Adverse Reactions: Allergies gabapentin [From Neurontin] Allergy (Verified 01/23/19 07:46) Rash morphine Allergy (Verified 01/23/19 07:46) HYPOTENSION Penicillins Allergy (Verified 01/23/19 07:46) Rash Sulfa (Sulfonamide Antibiotics) Allergy (Verified 01/23/19 07:46) Rash PT STATES ONLY HAPPENED ONCE BUT HAS TAKEN SINCE W/ NO PROBLEM Primary Care Physician: Edwin Wilson MD [Primary Care Provider] - Prior records reviewed: Yes Surgical History: appendectomy, cholecystectomy, hysterectomy, - - x2, hysterectomy, cholecystectomy, appendectomy, tonsillectomy and adenectomy, Ideal filter placed. Lives: Alone Smoking Status: Former smoker Drugs: - - Per old records history of drug use/abuse - Family History Paternal Family History: Reports: - - Denied family history of drug abuse. Maternal Family History: Reports: - - Denied family history of drug abuse Review of Systems General: Reports: Chills, Fever, Malaise. Denies: Subjective, Sweats, Weight loss Eyes: Denies: Visual changes - bilaterally, Blurred Vision - bilaterally ENT: Denies: Rhinorrhea, Sore throat Cardiovascular: Denies: Chest pain, Palpitations Respiratory: Denies: Dyspnea, Cough, Dyspnea on exertion Gastrointestinal: Reports: Abdominal pain, Nausea, Diarrhea. Denies: Vomiting, Melena, Hematochezia Genitourinary: Reports: Dysuria, Hematuria, - - Remote history of renal calculus.. Denies: Frequency Musculoskeletal: Reports: Back pain. Denies: Myalgias, Arthralgias, Neck pain Neurological: Denies: Headache, Weakness, Parasthesia, Numbness Endocrine: Denies: Polyuria, Polydipsia Hematologic: Denies: Easy bruising, Easy bleeding Physical Exam Vital Signs/Narrative: Vital Signs Temp Pulse Resp BP Pulse Ox 01/23/19 07:43 98.4 F 78 18 125/83 H 100 Inital Vital Signs reviewed: Yes General: Well nourished, Well developed, No Acute Distress Head: Normocephalic, Atraumatic Eyes: Perrl, EOMI. Negative for: Pale conjunctiva, Scleral icterus, - ENT: Moist mucous membranes, No rhinorrhea Neck: Supple, Nontender, No lymphadenopathy, No JVD, - Cardiovascular: Regular rate, Regular rhythm, No murmurs, Normal S1, Normal S2 Respiratory: No distress, CTA bilaterally, Chest nontender Abdomen: Soft, Nondistended, Normal bowel sounds, No masses, Tender - Suprapubic region. Negative for: Nontender, Guarding, Rebound tenderness, Hepatomegaly, Splenomegaly, Mass Back: Normal Inspection, CVA tenderness. Negative for: Spinal tenderness Extremities: No edema, Tenderness - Tenderness over prior blood draw sites. No palpable mass suggestive of superficial phlebitis. Skin: Normal color, No rash. Negative for: Cyanosis, Jaundice Neurological: Alert, Oriented x3, Cranial nerves II-XII grossly intact, Normal Strength, Normal Sensation Psychological: Depressed Diagnostic/Tx/Re-eval Laboratory Results 01/23/19 01/23/19 01/23/19 08:20 08:30 08:30 WBC 5.2 RBC 4.17 L Hgb 13.3 Hct 38.1 MCV 91.4 MCH 31.9 MCHC 34.9 RDW 12.9 RDW Differential 42.7 Plt Count 251 MPV 8.4 Immature Gran % (Auto) 0.000 Neut % (Auto) 45.4 L Lymph % (Auto) 44.1 H [place] % (Auto) 8.4 Eos % (Auto) 1.3 Baso % (Auto) 0.8 Absolute Neuts (auto) 2.4 Absolute Lymphs (auto) 2.30 Total Counted Not Reportable Sodium 141 Potassium 3.4 L Chloride 115 H Carbon Dioxide 21.0 Anion Gap 5 BUN 19 H Creatinine 0.98 Estim Creat Clear Calc 63.26 Est GFR (MDRD) Af Amer 79 Est GFR (MDRD) Non-Af 65 BUN/Creatinine Ratio 19.3 Glucose 99 Calcium 8.5 Urine Color Yellow Urine Clarity Sl. Cloudy Urine pH 6.0 Ur Specific [place] 1.020 Urine Protein Negative Urine Glucose (UA) Normal Urine Ketones Negative Urine Occult Blood 25 H Urine Nitrite Negative Urine Bilirubin Negative Urine Urobilinogen Normal Ur Leukocyte Esterase 500 H Urine RBC 0-5 SEEN Urine WBC 25-50 SEEN Ur Squamous Epith Cells 0-5 SEEN Urine Bacteria 1+ Urine Mucus 0 SEEN - Medical Decision Making With history of recent urinary tract infection and persistent symptoms will obtain UA and urine culture. Because of documented fever IV was established and blood work was drawn to assess white count and renal function. If there is evidence of infection with prior history of renal calculus will obtain CT of the abdomen pelvis without contrast to determine if there is a ureteral stone and reason why infection has not cleared. Prior to exam room patient requested pain medicine. She was treated with 50 mg Toradol for the pain and 4 mg of Zofran for her nausea. She was not given opiates in light of prior history of opiate use/abuse per old records. Urinalysis is consistent with persistent infection. Culture was sent. She will receive 1 g of Rocephin IV piggyback. She has in her possession the prescription for ciprofloxacin. She was prescribed 7 days which is appropriate duration. Patient was informed a culture was sent and if the organism is resistant to Cipro she will be notified. Patient asked for pain medicine. She was informed based on her past history which she acknowledged is accurate she was not given any opiate analgesia. ED Disposition - Plan for ED Patient: Disposition: Home or Assisted Living Diagnosis: Pyelonephritis, acute Instructions: ED Bladder Infec Cystitis Vs Pyelo Ch Referrals: Edwin Wilson MD [Primary Care Provider] - Additional Instructions: Fill the prescription for ciprofloxacin today. Take first dose this evening. Take antibiotic until gone.
[2019-01-23] MEDS: Ondansetron 4 MG/2 ML Vial IV (08:27)
[2019-01-23] MEDS: Ketorolac 15 MG/ML Vial IV (08:27)
[2019-01-23 08:30] VITALS: BP 117/85; PULSE 64; RESP 18; O2SAT 98
[2019-01-23 08:45] LABS: Mucous, Urine 0 SEEN /hpf (<or=2+)
[2019-01-23 08:47] LABS: Absolute Neutrophil Count 2.4 X10^3/uL (2.0-7.7); Basophil# 0.04 X10^3/uL; Basophil% 0.8 % (0-1); Eosinophil# 0.07 X10^3/uL; Eosinophils% 1.3 % (0-5); Hematocrit 38.1 % (37-47); Hemoglobin 13.3 g/dl (12.0-15.0); Lymphocyte % 44.1 % (19-41); Mean Corp Hgb Conc 34.9 g/gl (32-36); Mean Corpuscular Hgb 31.9 pg (27.0-32.0); Mean Corpuscular Volume 91.4 fL (81-99); Mean Platelet Vol. 8.4 fl (6.2-12.0); Monocyte# 0.44 X10^3/uL; Monocyte% 8.4 % (0-10); Neutrophil # 2.36 X10^3/uL (2.7-7.7); Neutrophil % 45.4 % (47-70); POSITIVE COUNT NO; POSITIVE DIFFERENTIAL NO; POSITIVE MORPHOLOGY NO; Platelet Count 251 K/mm3 (150-450); RBC Distribution Width CV 12.9 % (11.6-14.6); RBC Distribution Width SD 42.7 fl (35.1-43.9); Red Blood Count 4.17 M/mm3 (4.2-5.4); White Blood Count 5.2 K/mm3 (4.4-11.0)
[2019-01-23 08:52] LABS: Color, Urine Yellow (Yellow); Glucose, Dipstick Normal (Normal); Ketone-Dipstick Negative (Negative); Leukocyte Esterase-Dipstick 500 /ul (Negative); Nitrite-Dipstick Negative (Negative); Occult Blood-Urine 25 /ul (Negative); Protein-Dipstick Negative (Negative); Urine Bilirubin Dipstick Negative (Negative); Urine Clarity Sl. Cloudy (Clear); Urine Urobilinogen Normal (Normal)
[2019-01-23 08:58] LABS: Anion Gap 5 (5-15); BUN 19 mg/dL (7-18); BUN/Creat Ratio 19.3 RATIO (10-20); Calcium,Total 8.5 mg/dL (8.5-10.1); Chloride 115 mmol/L (98-107); Creatinine, Serum 0.98 mg/dL (0.55-1.02); EST Glomerular Filtration Rate 65 mL/min (>60); Est Glom Filt Rate - Afr Amer 79 mL/min (>60); Estimated Creatinine Clearance 63.26 ml/min; Glucose 99 mg/dL (74-106); Potassium 3.4 mmol/L (3.5-5.1); Sodium Level 141 mmol/L (136-145)
[2019-01-23 08:58] LABS: Bacteria 1+ /hpf (None Seen); Red Blood Cells-Urine 0-5 SEEN /hpf (0-5); Squamous Epithelial Cells - UA 0-5 SEEN /hpf (5-10); White Blood Cells 25-50 SEEN /hpf (0-5)
[2019-01-23] MEDS: Ceftriaxone 1 GM/50 ML BAG IV (10:18)
[2019-01-23 11:00] VITALS: BP 96/71; PULSE 74; RESP 16
--- NOTE | 2019-01-26 09:27 | ED.RN ---
Spoke with pt about about urine culture results. Informed Dr Mims had ordered a new ATB for tx and pt stated her primary care physician was going to take care of it. [phone]
== END 2019-01-23 11:35 | disposition home or self-care (01) ==
PROVIDERS: Emergency Provider Emergency Medicine
DX: N10 Acute pyelonephritis (principal); I10 Essential (primary) hypertension; E78.5 Hyperlipidemia, unspecified; D68.51 Activated protein C resistance; F32.9 Major depressive disorder, single episode, unspecified; F41.9 Anxiety disorder, unspecified; Z86.711 Personal history of pulmonary embolism; Z79.01 Long term (current) use of anticoagulants; Z88.5 Allergy status to narcotic agent; Z87.442 Personal history of urinary calculi; Z90.710 Acquired absence of both cervix and uterus; Z90.49 Acquired absence of other specified parts of digestive tract
CPT/HCPCS: 80048; 81001; 85025; 87086; 87088; 87186; 96365; 96375; 99282; J7050; A4216; J2405

== ENCOUNTER 2019-04-17 17:12 | Emergency (ER) | payer MEDICARE, MEDICAID, SELFPAY ==
[2019-04-17 17:14] VITALS: BP 112/79; PULSE 98; RESP 14; TEMP 37.2; O2SAT 98; BMI 28.3
--- NOTE | 2019-04-17 17:43 | ED.DCSUM_ITS ---
- ER Visit Summary Date of Service: 04/17/19 Chief Complaint: Seizure History of Present Illness: The patient is a 43 F presenting after seizure. Patient states that she felt seizure coming on and she called EMS. She states in route to the hospital she had 3 additional seizures. Per EMS they lasted 30 seconds each. She was given Valium per EMS. She did not bite her tongue. She had no urinary incontinence. No injuries. She has a history of seizures. Her Topamax was increased 3 weeks ago to 150 mg twice daily. She also takes Keppra 750 mg twice daily. She denies other complaints. She states she is awake throughout her seizures and it is typically left upper extremity shaking. Denies fever. Denies other complaints. Physical Examination: Vitals are stable. Patient is afebrile. Alert no acute distress. HEENT exam is unremarkable. Neck is supple. No meningismus Lungs are clear and equal bilaterally. Heart is regular rate and rhythm. Abdomen is soft nontender nondistended. Extremities are unremarkable. Skin is warm and dry. No focal neurologic deficit. Remainder of exam is unremarkable. Emergency Department Course and Treatment: CBC, chemistries unremarkable. INR 1.5. CT head shows no change and no acute abnormality. 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 Discussed with Dr. Tatiana barraza for her neurologist Dr. Hendricks. He recommends increasing her Keppra to 1000 mg twice a day. She was given Keppra in the emergency department. She will follow-up with Dr. Hendricks. Advised return to ED for worsening complaints. Disposition: Discharge home Impression: Recurrent breakthrough seizure This note was generated with [employer] dictation software. It may contain incorrect words, spelling, and punctuation that were not noted in review of the chart prior to signing ED Disposition - Plan for ED Patient: Instructions: SEIZURE, Recurrent [Adult] Prescriptions: Levetiracetam [Keppra] 1,000 mg PO BID #60 tab Prescription Printed Referrals: Edwin Floyd, [facility]-C [NON-STAFF] -
[2019-04-17 18:15] LABS: Absolute Lymphocyte Count 1.33 X10^3/uL (0.83-4.51); Absolute Neutrophil Count 3.3 X10^3/uL (2.0-7.7); Basophil# 0.02 X10^3/uL; Basophil% 0.4 % (0-1); Eosinophil# 0.06 X10^3/uL; Eosinophils% 1.2 % (0-5); Hematocrit 41.8 % (37-47); Hemoglobin 14.7 g/dL (12.0-15.0); Lymphocyte # 1.33 X10^3/ul (4.0); Lymphocyte % 26.5 % (19-41); Mean Corp Hgb Conc 35.2 g/dL (32-36); Mean Corpuscular Hgb 33.6 pg (27.0-32.0); Mean Corpuscular Volume 95.4 fL (81-99); Mean Platelet Vol. 8.6 fl (6.2-12.0); Monocyte# 0.29 X10^3/uL; Monocyte% 5.8 % (0-10); NRBC Flagged by Analyzer 0 % (0-5); Neutrophil % 65.9 % (47-70); Platelet Count 228 K/mm3 (150-450); RBC Distribution Width CV 11.9 % (11.6-14.6); RBC Distribution Width SD 41.6 fl (35.1-43.9); Red Blood Count 4.38 M/mm3 (4.2-5.4)
[2019-04-17 18:31] LABS: Anion Gap 7 (5-15); BUN 10 mg/dL (7-18); Calcium,Total 8.8 mg/dL (8.5-10.1); Chloride 110 mmol/L (98-107); Creatinine, Serum 0.91 mg/dL (0.55-1.02); EST Glomerular Filtration Rate 71 mL/min (>60); Est Glom Filt Rate - Afr Amer 86 mL/min (>60); Estimated Creatinine Clearance 65.26 ml/min; Glucose 98 mg/dL (74-106); Potassium 3.4 mmol/L (3.5-5.1); Sodium Level 139 mmol/L (136-145)
[2019-04-17 19:22] VITALS: BP 99/68; PULSE 81; RESP 23; O2SAT 97
--- NOTE | 2019-04-17 19:25 | ED.RN ---
PT RINGS CALL LIGHT TO EXPLAIN TO THIS RN THAT SHE FEELS SHE IS HAVING A SEIZURE. NO CHANGE IN VS. PT A+OX4 ABLE TO SPEAK CLEARLY.
[2019-04-17 21:05] VITALS: BP 92/66; PULSE 62; RESP 22; O2SAT 97
[2019-04-17] MEDS: Acetaminophen 500 MG Tablet 1000 MG PO (22:16)
--- NOTE | 2019-04-17 22:31 | ED.DEP ---
ED Disposition - Plan for ED Patient: Instructions: SEIZURE, Recurrent [Adult] Prescriptions: Levetiracetam [Keppra] 1,000 mg PO BID #60 tablet Referrals: Edwin Floyd NP-C [NON-STAFF] -
--- NOTE | 2019-04-17 22:33 | CT_ITS ---
STUDY: CT BRAIN WITHOUT CONTRAST REASON FOR EXAM: Female, 43 years old. Seizure. Previous CVA. RADIATION DOSAGE (If Supplied By Facility): CTDIvol = ( 44.99 ) mGy, DLP = ( 779.24 ) mGycm TECHNIQUE: Transaxial CT imaging of the brain was performed without administration of intravenous contrast material. Individualized dose optimization techniques were used for this CT. COMPARISON: 11/11/2017 FINDINGS: Normal soft tissue structures. Normal calvarium. Normal size ventricles and extra-axial spaces for the patient's age. Normal white matter tracts of the cerebral hemispheres. Normal basal ganglia and thalami. Normal brainstem. Normal cerebellum. There is no intracranial hemorrhage. There are no findings of an acute ischemic infarction. Stable focal encephalomalacia in the right parietal lobe from previous infarct. Normal visualized paranasal sinuses. CT/Brain/Head without Contrast IMPRESSION: No change and no acute abnormality. 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 Electronically Signed: Андрей Polk MD at 23:02 EDT , Service support ,
[2019-04-17] MEDS: levETIRAcetam 1,000 MG Tablet 1000 MG PO (23:00)
[2019-04-17 23:06] VITALS: BP 100/74; PULSE 68; RESP 18; O2SAT 94
[2019-04-17 23:20] LABS: International Normalized Ratio 1.5; Prothrombin Time (Protime)PT. 18.2 SECONDS (11.7-14.9)
[2019-04-17 23:45] VITALS: BP 96/66; PULSE 56; RESP 18; O2SAT 98
--- NOTE | 2019-04-17 23:45 | ED.RN ---
PT GIVEN WRITTEN AND VERBAL DISCHARGE INSTRUCTIONS AND HOME GOING PRESCRIPTIONS. PT VERBALIZES UNDERSTANDING AND DENIES ANY FURTHER QUESTIONS. PT IV D/C AND COVERED WITH 2X2 GAUZE AND PAPER TAPE. PT DRESSES SELF AND AMBULATES OUT OF DEPT BY SELF.
== END 2019-04-17 23:47 | disposition home or self-care (01) ==
PROVIDERS: Emergency Provider Emergency Medicine; Family Provider Nurse Practitioner Family; PCP Nurse Practitioner Family
DX: G40.909 Epilepsy, unspecified, not intractable, without status epilepticus (principal); Z86.73 Personal history of transient ischemic attack (TIA), and cerebral infarction without residual deficits; Z72.0 Tobacco use; D68.51 Activated protein C resistance
CPT/HCPCS: 36415; 70450; 80048; 85025; 85610; 99285; J7030; A4216

== ENCOUNTER 2019-05-25 06:46 | Inpatient (IN) | payer MEDICARE, MEDICAID, SELFPAY ==
[2019-05-25 06:47] VITALS: BP 120/85; PULSE 83; RESP 16; TEMP 36.5; O2SAT 100; BMI 30.3
--- NOTE | 2019-05-25 07:10 | ED.VISSUMM ---
- ER Visit Summary Date of Service: 05/25/19 Chief Complaint: Abdominal pain History of Present Illness: The patient is a 43 F who presents with abdominal pain that began this morning. Patient states this feels similar to prior colitis flare. Patient describes her pain is sharp and throbbing. Patient states pain is worse over the upper abdomen. Patient admits to some nausea but denies any vomiting. Patient states she also had diarrhea for the past week. Patient states she noted some blood in her stools at times. Patient states this is typical for her colitis flare. Patient also states she is on Coumadin. Patient denies any dysuria or hematuria. Patient denies any abnormal vaginal bleeding or discharge. Physical Examination: Vital signs are stable. Patient is afebrile. Patient is in no acute distress. Oral mucosa is pink and moist. Neck is supple. Trachea is midline. There is no JVD noted. Heart was regular rate and rhythm. Lungs are clear and equal bilaterally. Abdomen is soft. Bowel sounds are normal. There is upper abdominal tenderness. There is no rebound or guarding noted. Cranial nerves II through XII are intact there are no focal motor or sensory deficits noted. Test Results: CBC was normal. Electrolytes were normal. Lipase was elevated at 3780. AST, ALT, and alk phos were also slightly elevated. INR is 1.6. Emergency Department Course and Treatment: Patient was given IV fluids and Zofran here. Review of her chart showed that she was recently admitted for narcotic withdrawal. Because of this, the patient was given Toradol for pain. Patient was requesting further pain medication however, I explained that given her recent admission for narcotic withdrawal and abuse I do not want to give her any opiate pain medication at this time. Case was discussed with the hospitalist. He will admit the patient to his service. Patient understood and was agreeable with the plan. All questions were answered. Disposition: Admit to hospital Impression: Acute pancreatitis This note was generated with [employer] dictation software. It may contain incorrect words, spelling, and punctuation that were not noted in review of the chart prior to signing ED Disposition - Plan for ED Patient: Disposition: Acute Care Hospital [facility] Diagnosis: Acute pancreatitis Referrals: Rin Rivera, [facility] [Primary Care Provider] -
[2019-05-25] MEDS: 0.9% Normal Saline 1,000 ML 1000 ML IV (07:45)
[2019-05-25] MEDS: Ketorolac 30 MG/ML Syringe IV (07:45)
[2019-05-25] MEDS: Ondansetron 4 MG/2 ML Vial IV (07:46)
[2019-05-25 08:00] LABS: Absolute Lymphocyte Count 1.44 X10^3/uL (0.83-4.51); Absolute Neutrophil Count 4.2 X10^3/uL (2.0-7.7); Basophil# 0.03 X10^3/uL; Basophil% 0.5 % (0-1); Eosinophil# 0.05 X10^3/uL; Eosinophils% 0.8 % (0-5); Hematocrit 40.7 % (37-47); Hemoglobin 14.3 g/dL (12.0-15.0); Lymphocyte # 1.44 X10^3/ul (4.0); Lymphocyte % 23.2 % (19-41); Mean Corp Hgb Conc 35.1 g/dL (32-36); Mean Corpuscular Hgb 33.4 pg (27.0-32.0); Mean Corpuscular Volume 95.1 fL (81-99); Mean Platelet Vol. 8.4 fl (6.2-12.0); Monocyte# 0.44 X10^3/uL; Monocyte% 7.1 % (0-10); NRBC Flagged by Analyzer 0 % (0-5); Neutrophil # 4.21 X10^3/uL (2.7-7.7); Neutrophil % 67.8 % (47-70); Platelet Count 218 K/mm3 (150-450); RBC Distribution Width CV 11.5 % (11.6-14.6); RBC Distribution Width SD 39.8 fl (35.1-43.9); Red Blood Count 4.28 M/mm3 (4.2-5.4); White Blood Count 6.2 K/mm3 (4.4-11.0)
[2019-05-25 08:09] LABS: International Normalized Ratio 1.6; Prothrombin Time (Protime)PT. 19.1 SECONDS (11.7-14.9)
[2019-05-25 08:23] LABS: ALB/GLOB Ratio 1.1 RATIO (0.9-2.4); AST(SGOT) 193 U/L (15-37); Alanine Aminotransfer ALT/SGPT 133 U/L (13-56); Albumin, Serum 3.7 g/dL (3.2-5.0); Alkaline Phosphatase 134 U/L (45-117); Anion Gap 11 (5-15); BUN 9 mg/dL (7-18); BUN/Creat Ratio 10.1 RATIO (10-20); Calcium,Total 8.5 mg/dL (8.5-10.1); Chloride 110 mmol/L (98-107); Creatinine, Serum 0.89 mg/dL (0.55-1.02); EST Glomerular Filtration Rate 73 mL/min (>60); Est Glom Filt Rate - Afr Amer 88 mL/min (>60); Estimated Creatinine Clearance 66.73 ml/min; Globulin 3.4 g/dL (2.2-4.2); Glucose 98 mg/dL (74-106); Lipase 3780 U/L (73-393); Potassium 3.8 mmol/L (3.5-5.1); Protein, Total 7.1 g/dL (6.4-8.2); Sodium Level 142 mmol/L (136-145)
--- NOTE | 2019-05-25 08:32 | NURSING ---
DR TRONCOSO FOR DR CALDERON
--- NOTE | 2019-05-25 08:40 | NURSING ---
MED SURG ACUTE PANCREATITIS ASHELFAH
[2019-05-25 09:02] VITALS: BP 94/58; PULSE 67; RESP 16; TEMP 36.5; O2SAT 97; BMI 29.8; BMI 29.9
--- NOTE | 2019-05-25 09:36 | US_ITS ---
STUDY: ABDOMINAL ULTRASOUND - RIGHT UPPER QUADRANT REASON FOR VISIT: Female, 43 years old. Pancreatitis. TECHNIQUE: Ultrasound evaluation of the right upper quadrant was performed with real-time and static leos-scale imaging. TECHNICAL QUALITY: Adequate. COMPARISON: Comparison is made with prior examination dated January 09, 2016. FINDINGS: Liver: The liver measures 14.4 cm. There is normal echogenicity of the liver. Minimal degree of the central intrahepatic biliary ductal dilatation. There is hepatic color flow. The direction of portal flow is hepatopetal. There is no demonstrated mass lesion. Gallbladder: The patient is status post cholecystectomy. Common Bile Duct (C.B.D.): The common bile duct is slightly dilated and measures 9.0 mm. Pancreas: Normal size of the head, body and tail of the pancreas. There is increased echogenicity of the pancreas. There is no demonstrated pancreatic mass or cyst. Right Kidney: Normal size of the right kidney. The right kidney measures 11.1 cm x 4.3 cm x 4.5 cm. Normal renal cortex. The right cortex measures 1.3 cm. There is no demonstrated renal mass or cyst. There is no right hydronephrosis. US/Liver IMPRESSION: Status post cholecystectomy. Mildly dilated common bile duct with mild dilatation of the central intrahepatic biliary ducts. Electronically Signed: Cr Schofield, at 12:39 EDT , Service support ,
--- NOTE | 2019-05-25 09:43 | PCM.HP.STD ---
Problem List (1) Seizure disorder Status: Chronic (2) History of drug abuse Status: Chronic (3) History of alcohol abuse Status: Chronic (4) Acute pancreatitis Status: Acute (5) Anxiety Status: Chronic (6) Depression Status: Chronic (7) History of pulmonary embolus (PE) Status: Chronic Comment: lifelong coumadin (8) Factor V Leiden mutation Status: Chronic (9) Hyperlipidemia Status: Chronic History of Present Illness Date of Admission: 05/25/19 Chief Complaint: Abdominal pain. The patient is a 43 year old F with past medical history as mentioned above presented to the emergency room because of abdominal pain. This abdominal pain started around 2 weeks ago, epigastric in location and towards the right upper quadrant, deep throbbing pain, intermittent, 9 out of 10 in severity, radiates to her back associated with nausea and vomiting and without aggravating or relieving factors. She did mention that around 2 days before this pain started, she drank a large bottle of Dahlia and she started having this abdominal pain afterwards. She complained of diarrhea over the last 2 weeks, 2-3 times a day, loose stool without blood. She denied fever or chills. She denies any symptoms. She had a history of cholecystectomy years ago but after that, she continued to have biliary stones with CBD dilatation and she underwent ERCP twice few years ago at [facility]. In the emergency department, her vital signs were stable. Her routine blood work was unremarkable. LFT revealed elevated liver transaminases as well as alkaline phosphatase, bilirubin is normal. Lipase is 3780. She is being admitted for acute pancreatitis. Past Medical History Past Medical History (Chronic Problems): Chronic Problems Seizure disorder (Chronic) History of drug abuse (Chronic) History of alcohol abuse (Chronic) Anxiety (Chronic) Depression (Chronic) History of pulmonary embolus (PE) (Chronic) lifelong coumadin Factor V Leiden mutation (Chronic) Obesity (BMI 30.0-34.9) (Chronic) Hyperlipidemia (Chronic) Presence of IVC filter (Chronic) Hypertension (Chronic) Allergies gabapentin [From Neurontin] Allergy (Verified 05/25/19 06:51) Rash morphine Allergy (Verified 05/25/19 06:51) HYPOTENSION Penicillins Allergy (Verified 05/25/19 06:51) Rash Sulfa (Sulfonamide Antibiotics) Allergy (Verified 05/25/19 06:51) Rash PT STATES ONLY HAPPENED ONCE BUT HAS TAKEN SINCE W/ NO PROBLEM Home Medications: Ambulatory Orders Medication Instructions Recorded Furosemide [Lasix] 40 mg PO DAILY 09/10/16 Potassium Chloride [K-Dur] 20 meq PO DAILY 09/10/16 Warfarin [Coumadin] 5 mg PO SUTHSA 09/10/16 Risperidone 0.5 mg PO BID 08/03/17 Ropinirole HCl [Requip] 2 mg PO QHS 11/11/17 Topiramate [Topamax] 200 mg PO BID 11/11/17 Levetiracetam [Keppra] 1,250 mg PO BID 10/25/18 Valacyclovir HCl [Valtrex] 500 mg PO DAILY 10/25/18 Warfarin Sodium 2.5 mg PO MOTUWEFR 04/17/19 Sumatriptan Succinate [Imitrex] 50 - 100 mg PO DAILY PRN PRN 05/25/19 Venlafaxine XR [Effexor Xr] 150 mg PO DAILY 05/25/19 Surgical History: appendectomy, cholecystectomy, hysterectomy, - - x2, hysterectomy, cholecystectomy, appendectomy, tonsillectomy and adenectomy, [place] filter placed. 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 Denies: Chills, Fever, Weakness, Fatigue Eyes: Denies: Blurred vision, Double vision, Drainage, Redness HEENT: Denies: Difficulty Hearing, Ear Pain, Eye Pain, Nasal Congestion, Sore Throat Cardiovascular: Denies: Chest Pain, Chest Pressure, Edema, Heaviness, Light Headedness, Palpitations, Syncope Respiratory: Denies: Cough, Pleuritic Pain, Shortness of Breath, Sputum production, Wheezing Gastrointestinal: Reports: Abdominal Pain, Diarrhea, Nausea, Vomiting. Denies: Constipation, Hematochezia, Melena Genitourinary: Denies: Dysuria, Frequency, Hematuria Musculoskeletal: Denies: Arm Pain, Back Pain, Foot Pain Skin: Denies: Dryness, Rash Neurological: Denies: Balance problems, Double vision, Change in Speech, Slurred speech, Confusion, Incoordination, Numbness, Tingling Psychiatric: Reports: Anxiety, Depression Endocrine: Denies: Change in Body Habitus, Polydipsia, Polyuria VTE Information - Inpt Only VTE Present on Admission: No VTE Mechan Device Prophylaxis: None VTE Pharm Prophylaxis ordered?: Yes Patient Problems: Active and Suspected Problems Acute pancreatitis (Acute) - Physical Exam General: Alert, Oriented x3, Cooperative, No apparent distress HEENT: Atraumatic, PERRLA, EOMI, Normocephalic Oral: Moist Mucosa, No Gingival or Mucosal Lesions/ Ulcerations Neck: Supple, No JVD, Negative Carotid Bruits, Trachea Midline, Thyroid Normal Size and Texture Lungs: Clear to auscultation, Normal air movement, No rhonchi, No wheeze, No rales Cardiovascular: Regular rate, Regular Rhythm, Normal S1, Normal S2, No murmurs, PMI Normal Abdomen: Bowel Sounds Present, Soft, Non-Distended, No Hepato-splenomegaly, Tender - Epigastric and minimal right upper quadrant tenderness. No guarding or rigidity. Extremities: No clubbing, No cyanosis, No edema Skin: No rashes, No breakdown Lymphatic: No Cervical, Supraclavicular, or Inguinal Adenopathy Neurological: Cranial nerves II-XII grossly intact, Motor Exam 5/5 strength throughout Psych/Mental Status: Normal Affect, Appropriate, Alert and oriented to time, place, person, mood and affect Vital Signs Temp Pulse Resp BP Pulse Ox 97.7 F L 83 16 120/85 H 100 05/25/19 06:47 05/25/19 06:47 05/25/19 06:47 05/25/19 06:47 05/25/19 06:47 Oxygen Delivery Method Room Air Weight: 168 lb 10.458 oz Body Mass Index (BMI) 29.8 Laboratory Tests Past 24 Hrs 05/25/19 05/25/19 05/25/19 07:45 07:45 07:45 WBC 6.2 RBC 4.28 Hgb 14.3 Hct 40.7 MCV 95.1 MCH 33.4 H MCHC 35.1 RDW Std Deviation 39.8 RDW Coeff of Megan 11.5 L Plt Count 218 MPV 8.4 Immature Gran % (Auto) 0.600 Neut % (Auto) 67.8 Lymph % (Auto) 23.2 Iron % (Auto) 7.1 Eos % (Auto) 0.8 Baso % (Auto) 0.5 Absolute Neuts (auto) 4.2 Absolute Lymphs (auto) 1.44 Nucleated RBC % 0 PT 19.1 H INR 1.6 Sodium 142 Potassium 3.8 Chloride 110 H Carbon Dioxide 21.0 Anion Gap 11 BUN 9 Creatinine 0.89 Estim Creat Clear Calc 66.73 Est GFR (MDRD) Af Amer 88 Est GFR (MDRD) Non-Af 73 BUN/Creatinine Ratio 10.1 Glucose 98 Calcium 8.5 Total Bilirubin 0.40 AST 193 H ALT 133 H Alkaline Phosphatase 134 H Total Protein 7.1 Albumin 3.7 Globulin 3.4 Albumin/Globulin Ratio 1.1 Lipase 3780 H Assessment/Plan All Active Problems Acute pancreatitis (Acute) This is a 43 years old female patient presented to the emergency room because of abdominal pain with nausea and vomiting and she was found to have elevated pancreatic lipase consistent with acute pancreatitis and she is being admitted for evaluation and treatment. #1 acute pancreatitis: In context of history of bouts of mild pancreatitis due to biliary stones. Patient did admit that she drank a large bottle of Dahlia the day before she started having abdominal pain. Also, she continued to have biliary stone with bouts of pancreatitis after she had cholecystectomy years ago and she went for ERCP couple of times in the last couple of years. At this time, etiology of this pancreatitis could be alcoholic pancreatitis versus biliary stone pancreatitis. Her LFT revealed slightly elevated trans-meniscus, minimally elevated alkaline phosphatase which can be explained by drinking alcohol and also by biliary stones. [facility]., IV fluids, IV Toradol PRN, minimal dose of IV Dilaudid as needed, IV antiemetics, IV Pepcid, repeat CBC, CMP and lipase tomorrow morning, right upper quadrant ultrasound, avoid excess narcotics because of history of drug abuse. #2 factor V Leiden/history of PE: Admission INR is 1.6, subtherapeutic. Because patient may need to go under procedures such as ERCP, I will hold Coumadin and start her on therapeutic Lovenox twice daily. #3 seizure disorder: Stable, continue Keppra and Topamax. #4 history of drug abuse/history of alcohol abuse: Patient mentioned that she drank one large bottle of vodka around 2 weeks ago and did not have anything else over the last year. She denies any use of drugs since October,. Plan: Blood alcohol level, urine drug screen. #5 depression/anxiety: Continue Effexor, risperidone and Requip. #6 DVT prophylaxis: Subcu Lovenox twice daily This note was generated with [employer] dictation software. It may contain incorrect words, spelling, and punctuation that were not noted in checking the note before signing. Code Visit Inpatient E&M: 70713 Init Hosp L3
[2019-05-25] MEDS: HYDROmorphone 0.5 MG/0.5 ML SYRINGE IV ×3 (10:08→19:58)
[2019-05-25] MEDS: Lactated Ringers 1,000 ML 150 ML IV ×2 (11:35→17:50)
[2019-05-25] MEDS: RisperiDONE 0.5 MG Tablet PO ×2 (11:39→22:05)
[2019-05-25] MEDS: Venlafaxine XR 150 MG Capsule PO (11:39)
[2019-05-25] MEDS: Topiramate 200 MG Tablet PO ×2 (11:40→22:05)
[2019-05-25 11:43] LABS: Alcohol, Blood (Medical)-Serum < 3.0 mg/dL
--- NOTE | 2019-05-25 13:20 | CHAPLAIN ---
Type of Pastoral Visit _x__ Initial Visit ___ Follow-up Visit ___ On-call Visit ___ General Patient Visit ___ Spiritual Assessment ___ Family Conference ___ Bereavement ___ Rapid Response ___ Code Blue ___ Other (describe below) Pastoral Care Referral From _x__ Patient ___ Family ___ Nurse ___ Physician ___ Storage Administrator ___ Parts Salvager ___ Other (describe below) Sacrament/Intervention _x__ Active listening ___ Anointing ___ Yazidism ___ Bereavement ___ Communion ___ Kathleen exploration ___ _x__ Life review _x__ Prayer ___ Reconciliation ___ Sacrament of Sick _x__ Supportive presence ___ Wedding ___ Other (describe below) Pastoral Comments
[2019-05-25 13:50] VITALS: O2SAT 94
[2019-05-25 15:02] VITALS: BP 94/69; PULSE 71; RESP 16; TEMP 36.4; O2SAT 97
[2019-05-25 15:48] LABS: Amphetamine Urine VISTA NEGATIVE (<1000 ng/mL); Barbiturate Urine VISTA NEGATIVE (< 200 ng/mL); Benzodiazepine Urine VISTA NEGATIVE (< 200 ng/mL); Cocaine Urine VISTA NEGATIVE (< 300 ng/mL); Ecstacy Urine VISTA NEGATIVE (< 500 ng/mL); Methadone Urine VISTA NEGATIVE (< 300 ng/mL); PCP Urine VISTA NEGATIVE (< 25 ng/mL); THC Urine VISTA POSITIVE (< 50 ng/mL); Vista UDS pH Range 7
[2019-05-25] MEDS: Ketorolac 15 MG/ML Vial IV ×2 (17:06→23:16)
[2019-05-25] MEDS: Enoxaparin 80 MG/0.8 ML Syringe SC (17:48)
[2019-05-25 19:46] VITALS: BP 94/58; PULSE 64; RESP 16; TEMP 36.7; O2SAT 99
[2019-05-25] MEDS: Pramipexole Di-HCl 1 MG Tablet PO (22:05)
[2019-05-26] MEDS: Lactated Ringers 1,000 ML 150 ML IV ×2 (00:30→06:34)
[2019-05-26] MEDS: HYDROmorphone 0.5 MG/0.5 ML SYRINGE IV ×3 (00:37→10:21)
[2019-05-26] MEDS: Ondansetron 4 MG/2 ML Vial IV (03:06)
[2019-05-26 03:08] VITALS: BP 93/56; PULSE 60; RESP 18; TEMP 36.6; O2SAT 95
[2019-05-26] MEDS: Ketorolac 15 MG/ML Vial IV ×2 (05:30→11:12)
[2019-05-26] MEDS: Enoxaparin 80 MG/0.8 ML Syringe SC (05:30)
[2019-05-26 06:22] LABS: Absolute Lymphocyte Count 1.63 X10^3/uL (0.83-4.51); Absolute Neutrophil Count 0.9 X10^3/uL (2.0-7.7); Basophil# 0.02 X10^3/uL; Basophil% 0.7 % (0-1); Eosinophil# 0.06 X10^3/uL; Eosinophils% 2.1 % (0-5); Hematocrit 34.3 % (37-47); Hemoglobin 11.9 g/dL (12.0-15.0); Lymphocyte # 1.63 X10^3/ul (4.0); Lymphocyte % 57.4 % (19-41); Mean Corp Hgb Conc 34.7 g/dL (32-36); Mean Corpuscular Hgb 33.6 pg (27.0-32.0); Mean Corpuscular Volume 96.9 fL (81-99); Mean Platelet Vol. 8.4 fl (6.2-12.0); NRBC Flagged by Analyzer 0 % (0-5); Neutrophil # 0.93 X10^3/uL (2.7-7.7); Neutrophil % 32.8 % (47-70); POSITIVE DIFFERENTIAL YES; Platelet Count 160 K/mm3 (150-450); RBC Distribution Width CV 11.6 % (11.6-14.6); RBC Distribution Width SD 41.5 fl (35.1-43.9); Red Blood Count 3.54 M/mm3 (4.2-5.4); White Blood Count 2.8 K/mm3 (4.4-11.0)
[2019-05-26 06:25] LABS: Prothrombin Time (Protime)PT. 22.3 SECONDS (11.7-14.9)
[2019-05-26 06:28] LABS: Differential Indicated SCAN CRITERIA MET
[2019-05-26 06:38] VITALS: BP 113/72
[2019-05-26 06:47] LABS: ALB/GLOB Ratio 1.2 RATIO (0.9-2.4); AST(SGOT) 601 U/L (15-37); Alanine Aminotransfer ALT/SGPT 733 U/L (13-56); Albumin, Serum 2.9 g/dL (3.2-5.0); Alkaline Phosphatase 185 U/L (45-117); Anion Gap 8 (5-15); BUN 7 mg/dL (7-18); BUN/Creat Ratio 9.3 RATIO (10-20); Calcium,Total 8.1 mg/dL (8.5-10.1); Chloride 115 mmol/L (98-107); Creatinine, Serum 0.76 mg/dL (0.55-1.02); EST Glomerular Filtration Rate 88 mL/min (>60); Est Glom Filt Rate - Afr Amer 107 mL/min (>60); Estimated Creatinine Clearance 78.14 ml/min; Globulin 2.5 g/dL (2.2-4.2); Glucose 83 mg/dL (74-106); Lipase 572 U/L (73-393); Potassium 3.7 mmol/L (3.5-5.1); Protein, Total 5.4 g/dL (6.4-8.2); Sodium Level 146 mmol/L (136-145)
[2019-05-26 09:20] VITALS: BP 109/75; PULSE 61; RESP 18; TEMP 36.5; O2SAT 95
[2019-05-26] MEDS: Topiramate 200 MG Tablet PO (09:28)
[2019-05-26] MEDS: RisperiDONE 0.5 MG Tablet PO (09:28)
[2019-05-26] MEDS: Venlafaxine XR 150 MG Capsule PO (09:28)
[2019-05-26 11:01] VITALS: O2SAT 95
[2019-05-26] MEDS: 0.9% NaCl Peripheral Flush Adult/Peds IV (11:12)
--- NOTE | 2019-05-26 12:14 | PCM.DC.SUM ---
Discharge Date and Diagnosis Date of Admission: 05/25/19 Date of Discharge: 05/26/19 - Primary Discharge Diagnosis #1 acute pancreatitis. #2 dilated CBD, probable choledocholithiasis. #3 elevated LFT. - Secondary Discharge Diagnosis Chronic Problems Seizure disorder (Chronic) History of drug abuse (Chronic) History of alcohol abuse (Chronic) Anxiety (Chronic) Depression (Chronic) History of pulmonary embolus (PE) (Chronic) lifelong coumadin Factor V Leiden mutation (Chronic) Obesity (BMI 30.0-34.9) (Chronic) Hyperlipidemia (Chronic) Presence of IVC filter (Chronic) Hypertension (Chronic) Hospital Course and Treatment Imaging Results: Clinical Impression(s) from Imaging Studies Liver Ultrasound 05/25/19 09:36 IMPRESSION: Status post cholecystectomy. Mildly dilated common bile duct with mild dilatation of the central intrahepatic biliary ducts. Electronically Signed: Cr Schofield, at 12:39 EDT , Service support , Operations: None Procedures: None Summary of Care Provided: The patient is a 43 year old F admitted because of 2 weeks history of intermittent abdominal pain and she was found to have elevated lipase consistent with acute pancreatitis. The patient had a history of alcohol abuse and she quit drinking around 1 year ago but she mentioned that she drank a large bottle of Dahlia around the time when her abdominal pain started. On admission, her lipase was 3780. LFT revealed normal bilirubin, AST of 193, ALT of 133 and alkaline phosphatase of 134. Patient was kept on n.p.o., started on IV fluids and IV Dilaudid for pain as needed. Urine drug screen was positive for opioids and cannabinoids. Blood alcohol level was less than 3. Next day after admission, patient's abdominal pain slightly improved and her lipase came down to 572. Her LFT showed dramatic worsening of liver transaminases and alkaline phosphatase as well as elevation of total bilirubin. Bilirubin went up to 1.3 which was 0.40 on admission. AST went to 601, ALT went up to 733 and alkaline phosphatase went up to 185. Patient had a history of a cystectomy long time ago and after cholecystectomy, she continued to have problems with biliary stones and she underwent for ERCP twice, last one was last year at [facility]. Ultrasound liver revealed normal liver, status post cholecystectomy, CBD is 9 mm which was slightly dilated. Because of the dramatic elevation of her total bilirubin, alkaline phosphatase as well as liver transaminases along with dilated CBD, choledocholithiasis is a possibility. I called the surgeon who was dock operations supervisor, Dr. Gomez, and he mentioned that ERCP cannot be done over the weekend and patient needs to be transferred for this procedure. I called the transfer line of [facility] and I spoke with the admitting hospitalist who accepted the patient in transfer for further work-up and treatment. Patient transferred in a stable medical condition. - Physical Exam General: Alert, Oriented x3, Cooperative, No apparent distress HEENT: Atraumatic, PERRLA, EOMI, Normocephalic Oral: Moist Mucosa, No Gingival or Mucosal Lesions/ Ulcerations Neck: Supple, No JVD, Negative Carotid Bruits, Trachea Midline, Thyroid Normal Size and Texture Lungs: Clear to auscultation, Normal air movement, No rhonchi, No wheeze, No rales Cardiovascular: Regular rate, Regular Rhythm, Normal S1, Normal S2, No murmurs, PMI Normal Abdomen: Bowel Sounds Present, Soft, Non-Distended, No Hepato-splenomegaly, Tender - Minimal epigastric tenderness, right upper quadrant tenderness. Extremities: No clubbing, No cyanosis, No edema Skin: No rashes, No breakdown Lymphatic: No Cervical, Supraclavicular, or Inguinal Adenopathy Neurological: Cranial nerves II-XII grossly intact, Neuro grossly intact Psych/Mental Status: Normal Affect, Appropriate Vital Signs Temp Pulse Resp BP Pulse Ox 97.7 F L 61 18 109/75 95 05/26/19 09:20 05/26/19 09:20 05/26/19 09:20 05/26/19 09:20 05/26/19 11:01 Oxygen Delivery Method Room Air Weight: 168 lb 10.458 oz Body Mass Index (BMI) 29.8 Intake and Output for Last 24 Hours 05/24/19 05/25/19 05/26/19 23:59 23:59 23:59 Intake Total 1956. / 1956.5 2745 / 2745 Balance 1956.1956. 2745 / 2745 Laboratory Tests Past 24 Hrs 05/25/19 05/26/19 05/26/19 15:00 05:50 05:50 WBC 2.8 L RBC 3.54 L Hgb 11.9 L Hct 34.3 L MCV 96.9 MCH 33.6 H MCHC 34.7 RDW Std Deviation 41.5 RDW Coeff of Megan 11.6 Plt Count 160 MPV 8.4 Immature Gran % (Auto) 0.000 Neut % (Auto) 32.8 L Lymph % (Auto) 57.4 H [place] % (Auto) 7.0 Eos % (Auto) 2.1 Baso % (Auto) 0.7 Absolute Neuts (auto) 0.9 L Absolute Lymphs (auto) 1.63 Nucleated RBC % 0 Differential Comment PT INR Sodium 146 H Potassium 3.7 Chloride 115 H Carbon Dioxide 23.0 Anion Gap 8 BUN 7 Creatinine 0.76 Estim Creat Clear Calc 78.14 Est GFR (MDRD) Af Amer 107 Est GFR (MDRD) Non-Af 88 BUN/Creatinine Ratio 9.3 L Glucose 83 Calcium 8.1 L Total Bilirubin 1.30 H AST 601 H ALT 733 H Alkaline Phosphatase 185 H Total Protein 5.4 L Albumin 2.9 L Globulin 2.5 Albumin/Globulin Ratio 1.2 Lipase 572 H Urine Opiates Screen POSITIVE H Urine Methadone Screen NEGATIVE Ur Barbiturates Screen NEGATIVE Ur Phencyclidine Scrn NEGATIVE Ur Amphetamines Screen NEGATIVE U Methamphetamin-MDMA NEGATIVE U Benzodiazepines Scrn NEGATIVE Urine Cocaine Screen NEGATIVE U Cannabinoids Screen POSITIVE H Ur Drug Screen Comment 05/26/19 05:50 WBC RBC Hgb Hct MCV MCH MCHC RDW Std Deviation RDW Coeff of Megan Plt Count MPV Immature Gran % (Auto) Neut % (Auto) Lymph % (Auto) [place] % (Auto) Eos % (Auto) Baso % (Auto) Absolute Neuts (auto) Absolute Lymphs (auto) Nucleated RBC % Differential Comment PT 22.3 H INR 2.0 Sodium Potassium Chloride Carbon Dioxide Anion Gap BUN Creatinine Estim Creat Clear Calc Est GFR (MDRD) Af Amer Est GFR (MDRD) Non-Af BUN/Creatinine Ratio Glucose Calcium Total Bilirubin AST ALT Alkaline Phosphatase Total Protein Albumin Globulin Albumin/Globulin Ratio Lipase Urine Opiates Screen Urine Methadone Screen Ur Barbiturates Screen Ur Phencyclidine Scrn Ur Amphetamines Screen U Methamphetamin-MDMA U Benzodiazepines Scrn Urine Cocaine Screen U Cannabinoids Screen Ur Drug Screen Comment Home Medications: Medications to take at Discharge Furosemide [Lasix] 40 mg PO DAILY 09/10/16 Potassium Chloride [K-Dur] 20 meq PO DAILY 09/10/16 Warfarin [Coumadin] 5 mg PO SUTHSA 09/10/16 Risperidone 0.5 mg PO BID 08/03/17 Ropinirole HCl [Requip] 2 mg PO QHS 11/11/17 Topiramate [Topamax] 200 mg PO BID 11/11/17 Levetiracetam [Keppra] 1,250 mg PO BID 10/25/18 Valacyclovir HCl [Valtrex] 500 mg PO DAILY 10/25/18 Warfarin Sodium 2.5 mg PO MOTUWEFR 04/17/19 Sumatriptan Succinate [Imitrex] 50 - 100 mg PO DAILY PRN PRN 05/25/19 Venlafaxine XR [Effexor Xr] 150 mg PO DAILY 05/25/19 Melatonin 6 mg PO QHS 05/26/19 Primary Care Physician: Rin Rivera NP-C [Primary Care Provider] - Disposition: Acute care Hospital Minutes spent on discharge:: 31 Patient Condition:: Stable Medical Necessity - Tobacco Use Smoking Status: Current every day smoker Tobacco Use: Cigarettes Meaningful Use Info Meaningful Use Diagnoses (Choose all that apply): None applicable Code Visit Inpatient E&M: 13625 Disch Hosp
== END 2019-05-26 11:35 | disposition short-term general hospital (02) | DRG 439 ==
LOC: ED 08:34 → MS3 08:49
PROVIDERS: Admitting Provider Hospitalist; Emergency Provider Emergency Medicine; Family Provider Nurse Practitioner Family; PCP Nurse Practitioner Family; Visit Provider Hospitalist
DX: K85.90 Acute pancreatitis without necrosis or infection, unspecified (principal); D68.51 Activated protein C resistance; K80.50 Calculus of bile duct without cholangitis or cholecystitis without obstruction; R79.89 Other specified abnormal findings of blood chemistry; G40.909 Epilepsy, unspecified, not intractable, without status epilepticus; Z79.01 Long term (current) use of anticoagulants; Z90.49 Acquired absence of other specified parts of digestive tract; Z86.711 Personal history of pulmonary embolism; I10 Essential (primary) hypertension; F17.210 Nicotine dependence, cigarettes, uncomplicated; F32.9 Major depressive disorder, single episode, unspecified; E78.5 Hyperlipidemia, unspecified; F10.11 Alcohol abuse, in remission
CPT/HCPCS: 36415; 76705; 80053; 80307; 80320; 83690; 85025; 85610; 99285; J7030; J7120; A4216; G0480; J2405; J3490

== ENCOUNTER → 2019-06-08 15:04 | Outpatient (CLI) | payer MEDICARE, SELFPAY ==
[2019-05-25 09:02] VITALS: BMI 29.8
== END ==
PROVIDERS: Family Provider Nurse Practitioner Family; PCP Nurse Practitioner Family; Referring Provider Urology; Visit Provider Urology
DX: N39.0 Urinary tract infection, site not specified (principal)
CPT/HCPCS: 87086; 87088; 87186

== ENCOUNTER 2019-06-19 21:15 | Emergency (ER) | payer MEDICARE, SELFPAY ==
[2019-05-25 09:02] VITALS: BMI 29.8
[2019-06-19 21:17] VITALS: BP 105/79; PULSE 108; RESP 18; TEMP 36.2; O2SAT 95; BMI 28.3
[2019-06-19] MEDS: 0.9% Normal Saline 1,000 ML 1000 ML IV (22:11)
[2019-06-19] MEDS: Ondansetron 4 MG/2 ML Vial IV (22:11)
[2019-06-19] MEDS: HYDROmorphone 1 MG/ML Syringe 0.5 MG IV (22:11)
[2019-06-19 22:31] LABS: Absolute Lymphocyte Count 2.83 X10^3/uL (0.83-4.51); Absolute Neutrophil Count 3.8 X10^3/uL (2.0-7.7); Basophil# 0.04 X10^3/uL; Basophil% 0.5 % (0-1); Eosinophil# 0.12 X10^3/uL; Eosinophils% 1.6 % (0-5); Hematocrit 37.7 % (37-47); Hemoglobin 13.4 g/dL (12.0-15.0); Lymphocyte # 2.83 X10^3/ul (4.0); Lymphocyte % 38.8 % (19-41); Mean Corp Hgb Conc 35.5 g/dL (32-36); Mean Corpuscular Hgb 33.6 pg (27.0-32.0); Mean Corpuscular Volume 94.5 fL (81-99); Mean Platelet Vol. 8.1 fl (6.2-12.0); Monocyte# 0.51 X10^3/uL; NRBC Flagged by Analyzer 0 % (0-5); Neutrophil # 3.78 X10^3/uL (2.7-7.7); Neutrophil % 51.8 % (47-70); Platelet Count 261 K/mm3 (150-450); RBC Distribution Width CV 10.9 % (11.6-14.6); RBC Distribution Width SD 37.4 fl (35.1-43.9); Red Blood Count 3.99 M/mm3 (4.2-5.4); White Blood Count 7.3 K/mm3 (4.4-11.0)
[2019-06-19 22:39] LABS: Internal QC Validated? YES +Cl - CLEAR BKGD; Pregnancy, Serum, hCG Quali. NEGATIVE Negative
[2019-06-19 22:45] LABS: AST(SGOT) 14 U/L (15-37); Alanine Aminotransfer ALT/SGPT 40 U/L (13-56); Albumin, Serum 3.8 g/dL (3.2-5.0); Alkaline Phosphatase 128 U/L (45-117); Anion Gap 10 (5-15); BUN 17 mg/dL (7-18); BUN/Creat Ratio 17.2 RATIO (10-20); Bilirubin, Direct 0.08 mg/dL (0.00-0.30); Calcium,Total 8.4 mg/dL (8.5-10.1); Chloride 108 mmol/L (98-107); Creatinine, Serum 0.99 mg/dL (0.55-1.02); EST Glomerular Filtration Rate 65 mL/min (>60); Est Glom Filt Rate - Afr Amer 78 mL/min (>60); Estimated Creatinine Clearance 59.99 ml/min; Glucose 99 mg/dL (74-106); Lipase 179 U/L (73-393); Potassium 2.8 mmol/L (3.5-5.1); Protein, Total 6.8 g/dL (6.4-8.2); Sodium Level 141 mmol/L (136-145)
--- NOTE | 2019-06-19 23:43 | ED.DCSUM_ITS ---
History of Present Illness Chief Complaint: Abd Pain Informant: Patient Onset: Days Context: Gradual Onset Timing: Waxes and wanes Current Severity: Moderate Maximum Severity: Moderate Narrative: Patient presents with upper abdominal pain over the past couple days. She was admitted to this hospital earlier this month for pancreatitis and then transferred to a hospital in [place] for an ERCP. Patient states she did not have a ERCP performed. They did do a liver biopsy she has not followed up for results. She states while in the hospital there she developed C. difficile. She was treated with oral vancomycin. Following this she developed urinary tract infection. She is currently off all antibiotics. She states she had slightly loose stool today, but nothing like when she had C. difficile. Patient is concerned she may have pancreatitis again. Past Medical History - Allergies and Home Meds Allergies/Adverse Reactions: Allergies gabapentin [From Neurontin] Allergy (Verified 06/19/19 21:18) Rash morphine Allergy (Verified 06/19/19 21:18) HYPOTENSION Penicillins Allergy (Verified 06/19/19 21:18) Rash Sulfa (Sulfonamide Antibiotics) Allergy (Verified 06/19/19 21:18) Rash PT STATES ONLY HAPPENED ONCE BUT HAS TAKEN SINCE W/ NO PROBLEM Primary Care Physician: Rin Rivera, ALLEN-C [Primary Care Provider] - Prior records reviewed: Yes Past Medical History: - - Reviewed Surgical History: appendectomy, cholecystectomy, hysterectomy, - - x2, hysterectomy, cholecystectomy, appendectomy, tonsillectomy and adenectomy, [place] filter placed. Smoking Status: Former smoker - Family History Paternal Family History: Reports: Hypertension, - Maternal Family History: Reports: Unknown Review of Systems General: Denies: Chills, Fever Eyes: Denies: Visual changes - bilaterally ENT: Denies: Bilateral ear pain Cardiovascular: Denies: Chest pain Respiratory: Denies: Dyspnea, Cough Gastrointestinal: Reports: Abdominal pain, Nausea, Diarrhea. Denies: Vomiting Genitourinary: Denies: Dysuria Musculoskeletal: Denies: Neck pain, Back pain Skin: Denies: Rash Neurological: Denies: Headache Physical Exam Vital Signs/Narrative: Vital Signs Temp Pulse Resp BP Pulse Ox 06/19/19 21:17 97.1 F L 108 H 18 105/79 95 Inital Vital Signs reviewed: Yes General: Well nourished, Well developed Head: Normocephalic ENT: Moist mucous membranes Neck: Supple Cardiovascular: Regular rate, Regular rhythm Respiratory: No distress, CTA bilaterally Abdomen: Soft, Tender - Tenderness in the epigastrium and right upper quadrant., Hypoactive bowel sounds. Negative for: Guarding, Rebound tenderness Back: Nontender Extremities: Nontender Skin: Normal color, No rash Neurological: Alert, Oriented x3 Psychological: Normal affect Diagnostic/Tx/Re-eval Laboratory Results 06/19/19 06/19/19 06/19/19 22:10 22:10 22:10 WBC 7.3 RBC 3.99 L Hgb 13.4 Hct 37.7 MCV 94.5 MCH 33.6 H MCHC 35.5 RDW Std Deviation 37.4 RDW Coeff of Megan 10.9 L Plt Count 261 MPV 8.1 Immature Gran % (Auto) 0.300 Neut % (Auto) 51.8 Lymph % (Auto) 38.8 [place] % (Auto) 7.0 Eos % (Auto) 1.6 Baso % (Auto) 0.5 Absolute Neuts (auto) 3.8 Absolute Lymphs (auto) 2.83 Nucleated RBC % 0 Sodium 141 Potassium 2.8 L Chloride 108 H Carbon Dioxide 23.0 Anion Gap 10 BUN 17 Creatinine 0.99 Estim Creat Clear Calc 59.99 Est GFR (MDRD) Af Amer 78 Est GFR (MDRD) Non-Af 65 BUN/Creatinine Ratio 17.2 Glucose 99 Calcium 8.4 L Total Bilirubin 0.20 Direct Bilirubin 0.08 AST 14 L ALT 40 Alkaline Phosphatase 128 H Total Protein 6.8 Albumin 3.8 Globulin 3.0 Lipase 179 Serum , Qual NEGATIVE - Medical Decision Making Patient was given a dose of Dilaudid and Zofran here while awaiting test results. Test results are discussed with her. There is no evidence of pancreatitis. Abdomen is mildly tender I do not think that imaging is going to add to her work-up. She was given oral potassium will be sent home with 4 additional days of oral potassium replacement. She is to call her GI specialist for follow-up on her liver biopsy. ED Disposition - Plan for ED Patient: Disposition: Home or Assisted Living Diagnosis: Abdominal pain, Hypokalemia Instructions: ABDOMINAL PAIN, Unknown Cause, (Female), Hypokalemia Prescriptions: Potassium Chloride [K-Dur] 20 meq PO BID #8 tablet Referrals: Lorson,Rin, PILOT SUPERVISOR-C [Primary Care Provider] -
[2019-06-20 00:02] VITALS: BP 98/78; PULSE 92; RESP 16; O2SAT 96
[2019-06-20 00:03] VITALS: BP 98/78; PULSE 92; RESP 16; O2SAT 96
== END 2019-06-20 00:04 | disposition home or self-care (01) ==
PROVIDERS: Emergency Provider Emergency Medicine; Family Provider Nurse Practitioner Family; PCP Nurse Practitioner Family
DX: R10.9 Unspecified abdominal pain (principal); E87.6 Hypokalemia; Z87.891 Personal history of nicotine dependence; Z88.2 Allergy status to sulfonamides; Z88.8 Allergy status to other drugs, medicaments and biological substances; Z88.0 Allergy status to penicillin; Z82.49 Family history of ischemic heart disease and other diseases of the circulatory system; Z90.49 Acquired absence of other specified parts of digestive tract; Z90.710 Acquired absence of both cervix and uterus
CPT/HCPCS: 80048; 80076; 83690; 84703; 85025; 99284; J7030; A4216; J2405

== ENCOUNTER 2019-06-20 20:44 | Emergency (ER) | payer MEDICARE, SELFPAY ==
[2019-06-19 21:17] VITALS: BMI 28.3
[2019-06-20 20:45] VITALS: BP 126/83; PULSE 127; RESP 23; TEMP 37.2; O2SAT 96; BMI 30.1
[2019-06-20 20:49] VITALS: BP 126/83; PULSE 126; RESP 20; O2SAT 98
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
[2019-06-20 21:26] LABS: Absolute Lymphocyte Count 2.16 X10^3/uL (0.83-4.51); Absolute Neutrophil Count 5.6 X10^3/uL (2.0-7.7); Basophil# 0.05 X10^3/uL; Basophil% 0.6 % (0-1); Eosinophil# 0.08 X10^3/uL; Hemoglobin 14.3 g/dL (12.0-15.0); Lymphocyte # 2.16 X10^3/ul (4.0); Lymphocyte % 26.1 % (19-41); Mean Corp Hgb Conc 34.9 g/dL (32-36); Mean Corpuscular Volume 94.7 fL (81-99); Mean Platelet Vol. 8.3 fl (6.2-12.0); Monocyte# 0.41 X10^3/uL; Monocyte% 4.9 % (0-10); NRBC Flagged by Analyzer 0 % (0-5); Neutrophil # 5.56 X10^3/uL (2.7-7.7); Platelet Count 244 K/mm3 (150-450); RBC Distribution Width CV 10.7 % (11.6-14.6); RBC Distribution Width SD 37.7 fl (35.1-43.9); Red Blood Count 4.33 M/mm3 (4.2-5.4); White Blood Count 8.3 K/mm3 (4.4-11.0)
[2019-06-20 21:30] LABS: International Normalized Ratio 1.2; Prothrombin Time (Protime)PT. 15.1 SECONDS (11.7-14.9)
[2019-06-20 21:39] LABS: Anion Gap 8 (5-15); BUN 13 mg/dL (7-18); Calcium,Total 8.9 mg/dL (8.5-10.1); Chloride 109 mmol/L (98-107); Creatinine, Serum 1.08 mg/dL (0.55-1.02); EST Glomerular Filtration Rate 58 mL/min (>60); Est Glom Filt Rate - Afr Amer 71 mL/min (>60); Estimated Creatinine Clearance 54.99 ml/min; Glucose 141 mg/dL (74-106); Potassium 3.1 mmol/L (3.5-5.1); Sodium Level 138 mmol/L (136-145)
[2019-06-20] MEDS: 0.9% Normal Saline 1,000 ML 999 ML IV (21:45)
[2019-06-20 21:49] VITALS: BP 141/97; PULSE 108; RESP 24; O2SAT 98
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
--- NOTE | 2019-06-20 22:50 | DCINST.ED_ITS ---
ED Disposition - Plan for ED Patient: Instructions: LACERATION, Face (Suture or Tape) Referrals: Rin Rivera, GARDENING INSTRUCTOR-C [Primary Care Provider] - 5 Days for suture removal
--- NOTE | 2019-06-20 22:50 | ED.DEP ---
ED Disposition - Plan for ED Patient: Instructions: LACERATION, Face (Suture or Tape) Referrals: Rin Rivera, PLATE COLORER-C [Primary Care Provider] - 5 Days for suture removal
[2019-06-20 23:03] VITALS: BP 129/86; PULSE 84; RESP 16; O2SAT 94
== END 2019-06-20 23:05 | disposition home or self-care (01) ==
LOC: ED 21:24
PROVIDERS: Emergency Provider Emergency Medicine; Family Provider Nurse Practitioner Family; PCP Nurse Practitioner Family
DX: S01.81XA Laceration without foreign body of other part of head, initial encounter (principal); V89.2XXA Person injured in unspecified motor-vehicle accident, traffic, initial encounter; Y93.9 Activity, unspecified; Y92.410 Unspecified street and highway as the place of occurrence of the external cause; Y99.9 Unspecified external cause status; D68.51 Activated protein C resistance; Z79.01 Long term (current) use of anticoagulants; I10 Essential (primary) hypertension; E78.00 Pure hypercholesterolemia, unspecified; F12.90 Cannabis use, unspecified, uncomplicated; F32.9 Major depressive disorder, single episode, unspecified; F41.9 Anxiety disorder, unspecified
CPT/HCPCS: 70450; 72125; 80048; 85025; 85610; 99285; J7030; A4216

== ENCOUNTER 2019-06-22 16:19 | Emergency (ER) | payer MEDICARE, SELFPAY ==
[2019-06-22 16:19] VITALS: BP 138/90; PULSE 116; RESP 18; TEMP 36.3; O2SAT 100; BMI 28.3
--- NOTE | 2019-06-22 17:04 | CT_ITS ---
STUDY: CT BRAIN WITHOUT CONTRAST REASON FOR EXAM: Female, 43 years old. Headache RADIATION DOSAGE (If Supplied By Facility): DLP = ( 796.11 ) mGycm TECHNIQUE: Transaxial CT imaging of the brain was performed without administration of intravenous contrast material. Individualized dose optimization techniques were used for this CT. COMPARISON: CT head June 20, 2019 FINDINGS: There is no acute bleed or infarct. There are normal white matter tracts. The ventricles are normal in configuration. There is no hydrocephalus. The visualized paranasal sinuses are clear. The mastoid air cells are well aerated. There is no skull fracture. CT/Brain/Head without Contrast IMPRESSION: No acute intracranial abnormality. Electronically Signed: Mason Roman, at 19:01 EDT Tel , Service support ,
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
[2019-06-22 18:21] LABS: Absolute Neutrophil Count 5.6 X10^3/uL (2.0-7.7); Basophil# 0.05 X10^3/uL; Basophil% 0.6 % (0-1); Eosinophil# 0.05 X10^3/uL; Eosinophils% 0.6 % (0-5); Hematocrit 43.7 % (37-47); Hemoglobin 15.2 g/dL (12.0-15.0); Lymphocyte % 24.3 % (19-41); Mean Corp Hgb Conc 34.8 g/dL (32-36); Mean Corpuscular Hgb 33.3 pg (27.0-32.0); Mean Corpuscular Volume 95.6 fL (81-99); Mean Platelet Vol. 8.4 fl (6.2-12.0); Monocyte# 0.47 X10^3/uL; Monocyte% 5.7 % (0-10); NRBC Flagged by Analyzer 0 % (0-5); Neutrophil # 5.63 X10^3/uL (2.7-7.7); Neutrophil % 68.6 % (47-70); Platelet Count 256 K/mm3 (150-450); RBC Distribution Width CV 10.9 % (11.6-14.6); RBC Distribution Width SD 38.2 fl (35.1-43.9); Red Blood Count 4.57 M/mm3 (4.2-5.4); White Blood Count 8.2 K/mm3 (4.4-11.0)
[2019-06-22] MEDS: DiphenhydrAMINE 50 MG/ML Syringe IV (18:24)
[2019-06-22] MEDS: proCHLORPERazine 10 MG/2 ML Vial IV (18:25)
[2019-06-22 18:40] LABS: Anion Gap 6 (5-15); BUN 15 mg/dL (7-18); Calcium,Total 8.8 mg/dL (8.5-10.1); Chloride 104 mmol/L (98-107); Creatinine, Serum 0.94 mg/dL (0.55-1.02); EST Glomerular Filtration Rate 69 mL/min (>60); Est Glom Filt Rate - Afr Amer 83 mL/min (>60); Estimated Creatinine Clearance 63.18 ml/min; Glucose 108 mg/dL (74-106); Potassium 3.7 mmol/L (3.5-5.1); Sodium Level 138 mmol/L (136-145)
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
[2019-06-22 18:58] LABS: International Normalized Ratio 1.3; Prothrombin Time (Protime)PT. 15.6 SECONDS (11.7-14.9)
[2019-06-22 19:20] VITALS: BP 129/79; PULSE 99; RESP 18; O2SAT 97
--- NOTE | 2019-06-22 19:36 | DCINST.ED_ITS ---
ED Disposition - Plan for ED Patient: Instructions: Concussion Referrals: Rin Rivera, MARKETING OPERATIONS MANAGER-C [Primary Care Provider] -
--- NOTE | 2019-06-22 19:36 | ED.DEP ---
ED Disposition - Plan for ED Patient: Instructions: Concussion Referrals: Rin Rivera, CAMP TENDER-C [Primary Care Provider] -
[2019-06-22] MEDS: fentaNYL 100 MCG/2 ML Ampul 50 MCG IV (20:13)
[2019-06-22 20:23] VITALS: BP 132/81; PULSE 76; RESP 16; O2SAT 96
--- NOTE | 2019-06-22 20:24 | ED.RN ---
observed shot time no reaction noted by this nurse.
== END 2019-06-22 20:24 | disposition home or self-care (01) ==
LOC: ED 17:44
PROVIDERS: Emergency Provider Emergency Medicine; Family Provider Nurse Practitioner Family; PCP Nurse Practitioner Family
DX: S06.0X9A Concussion with loss of consciousness of unspecified duration, initial encounter (principal); V49.9XXA Car occupant (driver) (passenger) injured in unspecified traffic accident, initial encounter; Y93.89 Activity, other specified; G40.909 Epilepsy, unspecified, not intractable, without status epilepticus; D68.51 Activated protein C resistance; Z86.711 Personal history of pulmonary embolism; Z79.01 Long term (current) use of anticoagulants; Z79.899 Other long term (current) drug therapy
CPT/HCPCS: 70450; 80048; 85025; 85610; 96374; 96375; 99285; A4216

== ENCOUNTER 2019-06-26 18:28 | Emergency (ER) | payer MEDICARE, SELFPAY ==
[2019-06-26 18:30] VITALS: BP 116/77; PULSE 94; RESP 17; TEMP 36.1; O2SAT 99; BMI 29.1
[2019-06-26 19:48] LABS: Absolute Lymphocyte Count 1.92 X10^3/uL (0.83-4.51); Absolute Neutrophil Count 4.3 X10^3/uL (2.0-7.7); Basophil# 0.02 X10^3/uL; Basophil% 0.3 % (0-1); Eosinophil# 0.09 X10^3/uL; Eosinophils% 1.3 % (0-5); Hematocrit 38.3 % (37-47); Hemoglobin 13.1 g/dL (12.0-15.0); Lymphocyte # 1.92 X10^3/ul (4.0); Lymphocyte % 28.6 % (19-41); Mean Corp Hgb Conc 34.2 g/dL (32-36); Mean Corpuscular Hgb 32.5 pg (27.0-32.0); Mean Platelet Vol. 8.4 fl (6.2-12.0); Monocyte# 0.37 X10^3/uL; Monocyte% 5.5 % (0-10); NRBC Flagged by Analyzer 0 % (0-5); Neutrophil # 4.29 X10^3/uL (2.7-7.7); Platelet Count 209 K/mm3 (150-450); RBC Distribution Width SD 38.3 fl (35.1-43.9); Red Blood Count 4.03 M/mm3 (4.2-5.4); White Blood Count 6.7 K/mm3 (4.4-11.0)
[2019-06-26 20:05] LABS: AST(SGOT) 23 U/L (15-37); Alanine Aminotransfer ALT/SGPT 68 U/L (13-56); Albumin, Serum 3.8 g/dL (3.2-5.0); Alkaline Phosphatase 145 U/L (45-117); Anion Gap 5 (5-15); BUN 14 mg/dL (7-18); BUN/Creat Ratio 17.2 RATIO (10-20); Bilirubin, Direct 0.07 mg/dL (0.00-0.30); Calcium,Total 8.4 mg/dL (8.5-10.1); Chloride 111 mmol/L (98-107); Creatinine, Serum 0.82 mg/dL (0.55-1.02); EST Glomerular Filtration Rate 81 mL/min (>60); Est Glom Filt Rate - Afr Amer 98 mL/min (>60); Globulin 3.3 g/dL (2.2-4.2); Glucose 86 mg/dL (74-106); Lipase 140 U/L (73-393); Potassium 3.1 mmol/L (3.5-5.1); Protein, Total 7.1 g/dL (6.4-8.2); Sodium Level 139 mmol/L (136-145)
[2019-06-26] MEDS: 0.9% Normal Saline 1,000 ML 1000 ML IV (20:23)
[2019-06-26 20:31] VITALS: BP 112/71; PULSE 76; RESP 15; O2SAT 98
[2019-06-26] MEDS: Dicyclomine 20 MG/2 ML Vial IM (21:33)
--- NOTE | 2019-06-26 22:20 | ED.RN ---
DR PHAN NOTIFIED PT C/O CONTINUED PAIN
--- NOTE | 2019-06-26 23:09 | ED.VISSUMM ---
- ER Visit Summary Date of Service: 06/26/19 Chief Complaint: Abdominal pain and diarrhea History of Present Illness: The patient is a 43 F resents the emergency department for abdominal pain. Patient states that about 3 weeks ago she was diagnosed with a bout of pancreatitis. She also states she has a history of C. difficile is been off vancomycin now for about 1 or 2 weeks. She states that yesterday and today she developed diarrhea. She states is been a large amount but cannot tell me how many times she is gone. She also tells me she is not sure she can produce a specimen here. History of hypertension, high cholesterol, factor V/PE, as well as colitis. She is on Coumadin as well as Keppra. She has had prior cholecystectomy, appendectomy, and hysterectomy. Physical Examination: Afebrile vital signs are stable Gen: Well-nourished well-developed Head: Normocephalic atraumatic Eyes: Perrl EOMI ENT: TMs clear no rhinorrhea moist mucous membranes Neck: Supple no lymphadenopathy no JVD nontender CVS: Regular rate rhythm no murmurs normal S1-S2 Respiratory: No distress clear to auscultation bilaterally chest nontender Abdomen: Soft with tenderness to palpation in the right upper quadrant nondistended normal bowel sounds no masses Back: Nontender Extremity: Nontender no edema Skin: Normal color no rash Neuro: alert orientated ?3 CN II-XII intact normal strength sensation reflexes gait cerebellar Psych: Normal affect normal mood Test Results: White count 6.7 chemistry showed a potassium 3.1 chloride 111. BUN of 14 liver lipase showed a lipase of 140. C. difficile is negative. Emergency Department Course and Treatment: She received IV fluids. Took her several hours to produce a stool specimen but we did and this was sent for C. difficille given that her labs are negative she is had multiple CTs in her life I do not think that at this point other CT is indicated. Certainly we need to be very judicious in her to having just finished treatment for C. difficile I would be hesitant to place her on additional antibiotics increase her risk for recurrence. She does not have fever she has a normal white count and her physical exam is not significantly impressive (i.e. guarding or rebound) for colitis. Will be discharged home with prescriptions for Bentyl Impression: 1. Acute abdominal pain 2. diarrhea This note was generated with Dragon dictation software. It may contain incorrect words, spelling, and punctuation that were not noted in review of the chart prior to signing ED Disposition - Plan for ED Patient: Disposition: Home or Assisted Living Instructions: ABDOMINAL PAIN, Unknown Cause, (Female) Prescriptions: Dicyclomine HCl [Bentyl] 20 mg PO TIDAC #20 cap Prescription Printed Referrals: Rin Rivera, TRANSIT OPERATIONS SUPERVISOR-C [Primary Care Provider] - As Needed
[2019-06-26 23:34] VITALS: BP 119/78; PULSE 65; PULSE 67; RESP 14; RESP 16; O2SAT 98
[2019-06-26] MEDS: Loperamide 2 MG Capsule PO (23:39)
== END 2019-06-26 23:42 | disposition home or self-care (01) ==
PROVIDERS: Emergency Provider Emergency Medicine; Family Provider Nurse Practitioner Family; PCP Nurse Practitioner Family
DX: R10.9 Unspecified abdominal pain (principal); R19.7 Diarrhea, unspecified; I10 Essential (primary) hypertension; E78.00 Pure hypercholesterolemia, unspecified; D68.51 Activated protein C resistance; Z86.711 Personal history of pulmonary embolism; Z87.19 Personal history of other diseases of the digestive system; Z86.19 Personal history of other infectious and parasitic diseases; Z90.49 Acquired absence of other specified parts of digestive tract; Z79.01 Long term (current) use of anticoagulants; Z79.899 Other long term (current) drug therapy; Z72.0 Tobacco use
CPT/HCPCS: 80048; 80076; 83690; 85025; 87493; 96360; 96361; 96372; 99285; J7030; A4216

== ENCOUNTER 2019-06-28 22:23 | Emergency (ER) | payer MEDICARE, SELFPAY ==
[2019-06-28 22:24] VITALS: BP 114/80; PULSE 107; RESP 18; TEMP 36.4; O2SAT 99; BMI 28.3
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
[2019-06-28] MEDS: Ondansetron 4 MG/2 ML Vial IM (22:47)
[2019-06-28] MEDS: HYDROmorphone 1 MG/ML Syringe IM (22:49)
[2019-06-28 23:09] VITALS: RESP 16
== END 2019-06-28 23:10 | disposition home or self-care (01) ==
LOC: ED 22:46
PROVIDERS: Emergency Provider Emergency Medicine; Family Provider Nurse Practitioner Family; PCP Nurse Practitioner Family
DX: G44.309 Post-traumatic headache, unspecified, not intractable (principal); F07.81 Postconcussional syndrome; G43.909 Migraine, unspecified, not intractable, without status migrainosus; F41.9 Anxiety disorder, unspecified; F32.9 Major depressive disorder, single episode, unspecified; D68.51 Activated protein C resistance; E78.5 Hyperlipidemia, unspecified; I10 Essential (primary) hypertension; E66.9 Obesity, unspecified; G40.909 Epilepsy, unspecified, not intractable, without status epilepticus; Z87.19 Personal history of other diseases of the digestive system; Z86.711 Personal history of pulmonary embolism; Z95.828 Presence of other vascular implants and grafts; Z79.01 Long term (current) use of anticoagulants; Z79.899 Other long term (current) drug therapy; F10.10 Alcohol abuse, uncomplicated
CPT/HCPCS: 96372; 99282; J2405

== ENCOUNTER 2019-07-01 17:59 | Emergency (ER) | payer MEDICARE, SELFPAY ==
[2019-07-01 18:00] VITALS: BP 107/88; PULSE 111; RESP 16; TEMP 36.9; O2SAT 99; BMI 28.3
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
[2019-07-01] MEDS: 0.9% Normal Saline 1,000 ML 1000 ML IV (18:40)
[2019-07-01 18:54] LABS: International Normalized Ratio 2.1; Prothrombin Time (Protime)PT. 23.8 SECONDS (11.7-14.9)
[2019-07-01 19:10] VITALS: RESP 16
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
--- NOTE | 2019-07-01 19:28 | ED.DEP ---
ED Disposition - Plan for ED Patient: Instructions: CONCUSSION, No Wake Up Prescriptions: proMETHazine tablet [Phenergan] 25 mg PO Q6H PRN PRN #10 tab PRN Reason: Nausea Prescription Printed Referrals: Rin Rivera NP-C [Primary Care Provider] - Additional Instructions: see your neurologist
[2019-07-01] MEDS: proMETHazine 25 MG/ML Syringe IM (19:33)
[2019-07-01] MEDS: Nalbuphine 10 MG/ML Ampul IM (19:33)
[2019-07-01 20:01] VITALS: BP 102/85; PULSE 91; RESP 16
== END 2019-07-01 20:05 | disposition home or self-care (01) ==
PROVIDERS: Emergency Provider Emergency Medicine; Family Provider Nurse Practitioner Family; PCP Nurse Practitioner Family
DX: G44.309 Post-traumatic headache, unspecified, not intractable (principal); F07.81 Postconcussional syndrome; G93.89 Other specified disorders of brain; D68.51 Activated protein C resistance; G43.909 Migraine, unspecified, not intractable, without status migrainosus; F32.9 Major depressive disorder, single episode, unspecified; Z79.01 Long term (current) use of anticoagulants; Z79.899 Other long term (current) drug therapy; F17.290 Nicotine dependence, other tobacco product, uncomplicated
CPT/HCPCS: 70450; 85610; 96372; 99282; J7030; A4216

== ENCOUNTER 2019-07-02 22:48 | Inpatient (IN) | payer MEDICARE, SELFPAY ==
[2019-07-01 18:00] VITALS: BMI 28.3
[2019-07-02 22:48] VITALS: BP 108/75; PULSE 119; RESP 18; TEMP 36.9; O2SAT 100; BMI 28.3
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
[2019-07-03] VITALS (7 sets, daily range): BP systolic 100–121; BP diastolic 69–82; PULSE 70–84; RESP 14–18; TEMP 36.4–36.8; O2SAT 95–100; BMI 28.8
[2019-07-03 01:06] LABS: ALB/GLOB Ratio 1.1 RATIO (0.9-2.4); AST(SGOT) 195 U/L (15-37); Alanine Aminotransfer ALT/SGPT 130 U/L (13-56); Albumin, Serum 3.9 g/dL (3.2-5.0); Alkaline Phosphatase 168 U/L (45-117); Anion Gap 10 (5-15); BUN 11 mg/dL (7-18); BUN/Creat Ratio 12.6 RATIO (10-20); Calcium,Total 8.7 mg/dL (8.5-10.1); Chloride 109 mmol/L (98-107); Creatinine, Serum 0.88 mg/dL (0.55-1.02); EST Glomerular Filtration Rate 74 mL/min (>60); Est Glom Filt Rate - Afr Amer 90 mL/min (>60); Estimated Creatinine Clearance 70.45 ml/min; Globulin 3.4 g/dL (2.2-4.2); Glucose 99 mg/dL (74-106); Lipase 1831 U/L (73-393); Potassium 3.5 mmol/L (3.5-5.1); Protein, Total 7.3 g/dL (6.4-8.2); Sodium Level 140 mmol/L (136-145)
[2019-07-03] MEDS: Ondansetron ODT 4 MG Tablet 8 MG PO (01:12)
[2019-07-03] MEDS: Nalbuphine 10 MG/ML Ampul IM (01:14)
--- NOTE | 2019-07-03 01:51 | ED.RN ---
PT CALLED OUT STATED, STILL IN PAIN. DELAYED TELLING RN DUE TO A FULL ARREST IN ED RM 1
[2019-07-03 02:25] LABS: Absolute Lymphocyte Count 2.44 X10^3/uL (0.83-4.51); Absolute Neutrophil Count 2.5 X10^3/uL (2.0-7.7); Basophil# 0.04 X10^3/uL; Basophil% 0.7 % (0-1); Eosinophil# 0.05 X10^3/uL; Eosinophils% 0.9 % (0-5); Hematocrit 40.6 % (37-47); Hemoglobin 14.2 g/dL (12.0-15.0); Lymphocyte # 2.44 X10^3/ul (4.0); Lymphocyte % 44.1 % (19-41); Mean Corpuscular Volume 94.4 fL (81-99); Mean Platelet Vol. 8.5 fl (6.2-12.0); Monocyte# 0.45 X10^3/uL; Monocyte% 8.1 % (0-10); NRBC Flagged by Analyzer 0 % (0-5); Neutrophil # 2.53 X10^3/uL (2.7-7.7); Neutrophil % 45.8 % (47-70); Platelet Count 241 K/mm3 (150-450); RBC Distribution Width CV 11.1 % (11.6-14.6); RBC Distribution Width SD 38.2 fl (35.1-43.9); White Blood Count 5.5 K/mm3 (4.4-11.0)
[2019-07-03] MEDS: 0.9% Normal Saline 1,000 ML 999 ML IV (04:10)
[2019-07-03] MEDS: proMETHazine 25 MG/ML Syringe 12.5 MG IV (04:56)
[2019-07-03] MEDS: Nalbuphine 10 MG/ML Ampul IV ×5 (05:00→22:08)
--- NOTE | 2019-07-03 05:19 | HP.PCM_ITS ---
Problem List (1) Acute pancreatitis Status: Acute (2) History of drug abuse Status: Chronic (3) History of alcohol abuse Status: Chronic (4) Anxiety Status: Chronic (5) Depression Status: Chronic (6) History of pulmonary embolus (PE) Status: Chronic Comment: lifelong coumadin (7) Factor V Leiden mutation Status: Chronic (8) Obesity (BMI 30.0-34.9) Status: Chronic (9) Hyperlipidemia Status: Chronic (10) Presence of IVC filter Status: Chronic (11) Hypertension Status: Chronic History of Present Illness Date of Admission: 07/03/19 Chief Complaint: abdominal pain The patient is a 43 year old female patient with a past medical history of drug abuse presents to the emergency room with acute abdominal pain, described as 9/10 in the epigastric area. Onset of this pain began last evening around dinnertime. The patient was found to have a lipase of 1800 and has a relevant past medical history for pancreatitis associated with alcohol abuse which the patient denies at this time. Patient denies chest pain or shortness of breath. The patient has a morphine allergy and history of drug abuse therefore Nubain was chosen as drug of choice to manage her pain at this time. She will be admitted to general medical floor made n.p.o. and treated for pancreatitis. Past Medical History Past Medical History (Chronic Problems): Chronic Problems Seizure disorder (Chronic) History of drug abuse (Chronic) History of alcohol abuse (Chronic) Anxiety (Chronic) Depression (Chronic) History of pulmonary embolus (PE) (Chronic) lifelong coumadin Factor V Leiden mutation (Chronic) Obesity (BMI 30.0-34.9) (Chronic) Hyperlipidemia (Chronic) Presence of IVC filter (Chronic) Hypertension (Chronic) Allergies gabapentin [From Neurontin] Allergy (Verified 07/02/19 22:51) Rash morphine Allergy (Verified 07/02/19 22:51) HYPOTENSION Penicillins Allergy (Verified 07/02/19 22:51) Rash Sulfa (Sulfonamide Antibiotics) Allergy (Verified 07/02/19 22:51) Rash PT STATES ONLY HAPPENED ONCE BUT HAS TAKEN SINCE W/ NO PROBLEM Home Medications: Ambulatory Orders Medication Instructions Recorded Furosemide [Lasix] 40 mg PO DAILY 09/10/16 Potassium Chloride [K-Dur] 20 meq PO DAILY 09/10/16 Warfarin [Coumadin] 5 mg PO SUTHSA 09/10/16 Risperidone 0.5 mg PO BID 08/03/17 Ropinirole HCl [Requip] 2 mg PO QHS 11/11/17 Topiramate [Topamax] 200 mg PO BID 11/11/17 Levetiracetam [Keppra] 1,250 mg PO BID 10/25/18 Valacyclovir HCl [Valtrex] 500 mg PO DAILY 10/25/18 Warfarin Sodium 2.5 mg PO MOTUWEFR 04/17/19 Sumatriptan Succinate [Imitrex] 50 - 100 mg PO DAILY PRN PRN 05/25/19 Venlafaxine XR [Effexor Xr] 150 mg PO DAILY 05/25/19 Melatonin 6 mg PO QHS 05/26/19 Hydroxyzine Pamoate [Vistaril] 25 mg PO 4X/DAY PRN PRN 06/22/19 Dicyclomine HCl [Bentyl] 20 mg PO TIDAC PRN 07/01/19 Lorazepam [Ativan] 1 mg PO DAILY 07/01/19 proMETHazine tablet [Phenergan] 25 mg PO Q6H PRN PRN #10 tab 07/01/19 Surgical History: appendectomy, cholecystectomy, hysterectomy, - - x2, hysterectomy, cholecystectomy, appendectomy, tonsillectomy and adenectomy, G reenfield filter placed. 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 Denies: Vomiting Genitourinary: Denies: Dysuria Musculoskeletal: Denies: Joint Pain, Joint Tenderness Skin: Denies: Rash, Wounds Neurological: Denies: Numbness, Tingling, Focal weakness Psychiatric: Denies: Anxiety, Depression, Homicidal Ideations, Suicidal Ideations Hematologic/ Lymphatic: Denies: Easy Bruising, Easy Bleeding VTE Information - Inpt Only VTE Present on Admission: No VTE Mechan Device Prophylaxis: None VTE Pharm Prophylaxis ordered?: Yes Patient Problems: Active and Suspected Problems Acute pancreatitis (Acute) - Physical Exam General: Alert, Oriented x3, Cooperative HEENT: Atraumatic, Normocephalic Neck: Supple Lungs: Clear to auscultation, Normal air movement Cardiovascular: Regular rate, Normal S1, Normal S2, No murmurs Abdomen: Bowel Sounds Present, Obese, Tender - epigastric Extremities: No edema Skin: No rashes Musculoskeletal: No Tenderness to Palpation of Joints or Extremities Neurological: Neuro grossly intact Psych/Mental Status: Normal Affect, Appropriate Vital Signs Temp Pulse Resp BP Pulse Ox 98.4 F 81 17 104/82 H 95 07/02/19 22:48 07/03/19 04:17 07/03/19 04:17 07/03/19 04:17 07/03/19 04:17 Oxygen Delivery Method Room Air Weight: 165 lb Body Mass Index (BMI) 28.3 Laboratory Tests Past 24 Hrs 07/03/19 07/03/19 07/03/19 00:30 00:30 02:15 WBC Cancelled 5.5 Corrected WBC Cancelled RBC Cancelled 4.30 Hgb Cancelled 14.2 Hct Cancelled 40.6 MCV Cancelled 94.4 MCH Cancelled 33.0 H MCHC Cancelled 35.0 RDW Std Deviation Cancelled 38.2 RDW Coeff of Megan Cancelled 11.1 L Plt Count Cancelled 241 MPV Cancelled 8.5 Immature Gran % (Auto) Cancelled 0.400 Neut % (Auto) Cancelled 45.8 L Lymph % (Auto) Cancelled 44.1 H [place] % (Auto) Cancelled 8.1 Eos % (Auto) Cancelled 0.9 Baso % (Auto) Cancelled 0.7 Absolute Neuts (auto) Cancelled 2.5 Absolute Lymphs (auto) Cancelled 2.44 Total Counted Cancelled Neutrophils % (Manual) Cancelled Band Neutrophils % Cancelled Lymphocytes % (Manual) Cancelled Monocytes % (Manual) Cancelled Eosinophils % (Manual) Cancelled Basophils % (Manual) Cancelled Metamyelocytes % Cancelled Myelocytes % Cancelled Promyelocytes % Cancelled Blast Cells % Cancelled Plasma Cell % (Manual) Cancelled Other Cells % Cancelled Nucleated RBC % Cancelled 0 Nucleated RBCs/100 WBC Cancelled Differential Comment Cancelled Diff Path Review Cancelled Hypersegmented Neuts Cancelled Atypical Lymphocytes Cancelled Reactive Lymphocytes Cancelled Smudge Cells Cancelled Toxic Granulation Cancelled Toxic Vacuolation Cancelled Dohle Bodies Cancelled Devan Rods Cancelled Platelet Estimate Cancelled Plt Morphology Comment Cancelled RBC Morphology Cancelled Polychromasia Cancelled Hypochromasia Cancelled Poikilocytosis Cancelled Basophilic Stippling Cancelled Anisocytosis Cancelled Microcytosis Cancelled Macrocytosis Cancelled Spherocytes Cancelled Sickle Cells Cancelled Target Cells Cancelled Tear Drop Cells Cancelled Ovalocytes Cancelled Stomatocytes Cancelled Griffin[place] Bodies Cancelled [place] Cells Cancelled Bite Cells Cancelled Crenated Cell Cancelled Acanthocytes (Spur) Cancelled Rouleaux Cancelled Schistocytes Cancelled Sodium 140 Potassium 3.5 Chloride 109 H Carbon Dioxide 21.0 Anion Gap 10 BUN 11 Creatinine 0.88 Estim Creat Clear Calc 70.45 Est GFR (MDRD) Af Amer 90 Est GFR (MDRD) Non-Af 74 BUN/Creatinine Ratio 12.6 Glucose 99 Calcium 8.7 Total Bilirubin 0.40 AST 195 H ALT 130 H Alkaline Phosphatase 168 H Total Protein 7.3 Albumin 3.9 Globulin 3.4 Albumin/Globulin Ratio 1.1 Lipase 1831 H Assessment/Plan All Active Problems Acute pancreatitis (Acute) Acute pancreatitis (Resolved) Chronic Problems Seizure disorder (Chronic) History of drug abuse (Chronic) History of alcohol abuse (Chronic) Anxiety (Chronic) Depression (Chronic) History of pulmonary embolus (PE) (Chronic) lifelong coumadin Factor V Leiden mutation (Chronic) Obesity (BMI 30.0-34.9) (Chronic) Hyperlipidemia (Chronic) Presence of IVC filter (Chronic) Hypertension (Chronic) Plan 1. Acute pancreatitis?make patient n.p.o. admit to general medical floor, Nubain 10 mg IV every 3 hours as needed pain, Zofran 4 mg IV every 8 hours as needed nausea, IV normal saline 125 cc/h, repeat lipase this afternoon 2. History of drug abuse?avoid controlled substances which have potential for abuse 3. Depression?continue home medications 4. Hypertension?continue home medication 5. DVT prophylaxis low molecular weight heparin Code Visit Inpatient E&M: 75581 Init Hosp L3
[2019-07-03] MEDS: 0.9% Normal Saline 1,000 ML 125 ML IV ×3 (06:03→20:22)
--- NOTE | 2019-07-03 07:38 | NURSING ---
DERRICK AT [facility] NOTIFIED OF ORDER FOR MIDLINE
[2019-07-03] MEDS: Enoxaparin 40 MG/0.4 ML Syringe SC (09:37)
[2019-07-03] MEDS: Ondansetron 4 MG/2 ML Vial IV ×2 (11:03→21:03)
[2019-07-03] MEDS: HYDROmorphone 0.5 MG/0.5 ML SYRINGE IV ×3 (12:46→21:03)
--- NOTE | 2019-07-03 14:59 | CASEMGMT ---
RN CM Assessment Introduced role of RN CM to patient.? Patient resting, easily aroused. Introduced self and role, patient agrees to participate in RN CM Assessment. ?Care providers, pharmacy, and demographics verified. Presentation: C/o Abd pain. Past H/o Drug abuse and Pancreatitis associated with alcohol abuse. Admit Dx: Pancreatitis Re-Admit: No. Multiple ER visits- six in June 2019. Barriers/Issues: Multiple ED visits, patient denies ETOH, states that last time she had Pancreatitis it was a one time thing of drinking to celebrate her sig. other. Patient denies any issues of obtaining appointments with providers, states last seen hamper maker machine x1 week ago Dr Fisher. PCP: Rin Rivera Specialists: Neuro Epilepsy- Dr Joselyn Smiley, Gastro- Dr Fisher Preferred [facility]acy: [facility]. States uses [facility] for her pill packages for maintenance medications. Insurance: [facility] A&B Rx Benefit:?Yes ?LNOK: Mother Sadaf Patricia LW/HPOA: None, Would like to complete- Systems Planner notified. Living Arrangements:?Lives alone in a SS home with 2 steps to enter ADL?s: Independent with ambulation and ADLs Transportation: Patient drives DME: None HHC: Past after stroke in 1995 with [facility] SNF: None Goal: Home and does not think will have any needs. Denies any issues/concerns or questions with DC planning at this time. Aware CM will continue to follow for any emerging needs. DC PLAN: Home with no anticipated needs identified at this time. ROSI Carrizales
--- NOTE | 2019-07-03 15:44 | CASEMGMT ---
Social Work Received referral from RN LULU that pt would like to complete AD. Met with pt in room to discuss AD. Pt initially started to complete documents but it became apparent pt was too groggy. Pt is agreeable that she should not complete at this time due to medications and sleepiness. Rack card left with pt and encouraged to call number after discharge and SW will assist with completion of AD. FLORENTINO Stallings
[2019-07-03] MEDS: Pramipexole Di-HCl 1 MG Tablet PO (22:08)
[2019-07-03] MEDS: RisperiDONE 0.5 MG Tablet PO (22:08)
[2019-07-03] MEDS: Topiramate 200 MG Tablet PO (22:08)
[2019-07-04] MEDS: MELATONIN 3 MG TABLET PO ×2 (00:08→21:58)
[2019-07-04] MEDS: HYDROmorphone 0.5 MG/0.5 ML SYRINGE IV ×8 (01:04→23:21)
[2019-07-04 02:33] VITALS: BP 92/65; PULSE 85; RESP 18; TEMP 36.9; O2SAT 93
[2019-07-04] MEDS: Nalbuphine 10 MG/ML Ampul IV ×2 (02:38→06:41)
[2019-07-04] MEDS: 0.9% Normal Saline 1,000 ML 125 ML IV (04:21)
[2019-07-04 06:18] LABS: ALB/GLOB Ratio 1.2 RATIO (0.9-2.4); AST(SGOT) 141 U/L (15-37); Alanine Aminotransfer ALT/SGPT 229 U/L (13-56); Alkaline Phosphatase 130 U/L (45-117); Anion Gap 5 (5-15); BUN 7 mg/dL (7-18); BUN/Creat Ratio 10.4 RATIO (10-20); Calcium,Total 7.6 mg/dL (8.5-10.1); Chloride 120 mmol/L (98-107); Creatinine, Serum 0.67 mg/dL (0.55-1.02); EST Glomerular Filtration Rate 101 mL/min (>60); Est Glom Filt Rate - Afr Amer 122 mL/min (>60); Estimated Creatinine Clearance 92.53 ml/min; Globulin 2.4 g/dL (2.2-4.2); Glucose 84 mg/dL (74-106); Potassium 3.6 mmol/L (3.5-5.1); Protein, Total 5.4 g/dL (6.4-8.2); Sodium Level 148 mmol/L (136-145)
[2019-07-04] MEDS: 0.9% NaCl Peripheral Flush Adult/Peds IV ×2 (06:42→16:44)
[2019-07-04 08:19] VITALS: BP 120/77; PULSE 86; RESP 18; TEMP 37; O2SAT 96
[2019-07-04] MEDS: Ibuprofen 200 MG Tablet PO (08:54)
[2019-07-04] MEDS: RisperiDONE 0.5 MG Tablet PO ×2 (09:40→21:58)
[2019-07-04] MEDS: Venlafaxine XR 150 MG Capsule PO (09:41)
[2019-07-04] MEDS: Topiramate 200 MG Tablet PO ×2 (09:41→21:58)
--- NOTE | 2019-07-04 10:02 | US_ITS ---
STUDY: ABDOMINAL ULTRASOUND - RIGHT UPPER QUADRANT REASON FOR VISIT: Female, 43 years old elevated LFTs TECHNIQUE: Ultrasound evaluation of the right upper quadrant was performed with real-time and static leos-scale imaging. TECHNICAL QUALITY: Adequate. COMPARISON: 05/25/2019 FINDINGS: Liver: The liver measures 15 cm. There is normal echogenicity of the liver. The bile ducts are within normal limits. There is hepatic color flow. The direction of portal flow is hepatopetal. There is no demonstrated mass lesion. Gallbladder: The patient is status post cholecystectomy. Common Bile Duct (C.B.D.): The common bile duct measures 8-10 mm. Pancreas: Normal size of the head, body and tail of the pancreas. There is normal echogenicity of the pancreas. There is no demonstrated pancreatic mass or cyst. Right Kidney: Normal size of the right kidney. The right kidney measures 10.9 x 5.2 x 4.4 cm. Normal renal cortex. The right cortex measures 1.3 cm. There is no demonstrated renal mass or cyst. There is an extra-renal pelvis of the right kidney. There is no distention of the renal calyces. US/Abdomen Limited IMPRESSION: No suspicious sonographic findings, no interval change Electronically Signed: David Avalos MD at 12:51 EDT , Service support ,
--- NOTE | 2019-07-04 10:17 | PCM.PN.HOSP ---
Patient Problems: Active and Suspected Problems Acute pancreatitis (Acute) Subjective: Still having pain, and is needing Dilaudid every 2-3 hours. Still feeling thirsty but has no appetite no issues overnight Vitals/I&O's: Vital Signs Temp Pulse Resp BP Pulse Ox 98.6 F 86 18 120/77 96 07/04/19 08:19 07/04/19 08:19 07/04/19 08:19 07/04/19 08:19 07/04/19 08:19 Oxygen Delivery Method Room Air Weight: 167 lb 15.876 oz Body Mass Index (BMI) 28.8 Intake and Output for Last 24 Hours 07/02/19 07/03/19 07/04/19 23:59 23:59 23:59 Intake Total 3000.00 / 3000.00 1599.17 / 1599.17 Balance 3000.00 / 3000.00 1599.17 / 1599.17 General: Alert, Oriented x3, Cooperative, No apparent distress HEENT: Atraumatic, PERRLA, EOMI, Normocephalic Oral: Dry Mucosa Neck: Supple, No JVD Lungs: Clear to auscultation, Normal air movement, No rhonchi, No wheeze, No rales Cardiovascular: Regular rate, Regular Rhythm, Normal S1, Normal S2, No murmurs Abdomen: Soft, Non-Distended, No Hepato-splenomegaly, Tender - Right upper quadrant and epigastric region Extremities: No edema, Capillary Refill Less than 3 Seconds Skin: No rashes, No breakdown Neurological: Neuro grossly intact, Sensory exam intact to light touch and pain Psych/Mental Status: Normal Affect, Appropriate Laboratory Results 07/04/19 05:35: Sodium 148 H, Potassium 3.6, Chloride 120 H, Carbon Dioxide 23.0, Anion Gap 5, BUN 7, Creatinine 0.67, Estim Creat Clear Calc 92.53, Est GFR (MDRD) Af Amer 122, Est GFR (MDRD) Non-Af 101, BUN/Creatinine Ratio 10.4, Glucose 84, Calcium 7.6 L, Total Bilirubin 0.30, AST 141 H, ALT 229 H, Alkaline Phosphatase 130 H, Total Protein 5.4 L, Albumin 3.0 L, Globulin 2.4, Albumin/Globulin Ratio 1.2 Current Medications Enoxaparin Sodium (Lovenox) 40 mg SC DAILY@1000 ATIYA Last Admin: 07/03/19 09:37 Dose: 40 mg Documented by: Hydromorphone HCl (Dilaudid Inj) 0.5 mg IV Q3H PRN PRN PRN Reason: Pain Score 4-10/10 Sodium Chloride () 1,000 mls @ 150 mls/hr IV .Q6H40M PENDING SALE TO [facility] Ibuprofen (Motrin) 200 mg PO Q6H PRN PRN PRN Reason: Pain Score 1-5/10 Last Admin: 07/04/19 08:54 Dose: 200 mg Documented by: Levetiracetam 1,000 mg/ (Levetiracetam 250 mg) 1,250 mg PO BID PENDING SALE TO [facility] Last Admin: 07/04/19 09:41 Dose: 1,250 mg Documented by: Lorazepam (Ativan) 1 mg PO PRN PRN PRN Reason: seizures Melatonin (Melatonin) 3 mg PO QHS PENDING SALE TO [facility] Last Admin: 07/04/19 00:08 Dose: 3 mg Documented by: Non-Formulary Medication (Sumatriptan Succinate [Imitrex]) 50 - 100 mg PO DAILY PRN PRN PRN Reason: migraines Ondansetron HCl (Zofran) 4 mg IV Q8H PRN PRN PRN Reason: NAUSEA/VOMITING Last Admin: 07/03/19 21:03 Dose: 4 mg Documented by: Pramipexole Dihydrochloride (Mirapex) 1 mg PO QHS PENDING SALE TO [facility] Last Admin: 07/03/19 22:08 Dose: 1 mg Documented by: Risperidone (Risperdal) 0.5 mg PO BID PENDING SALE TO [facility] Last Admin: 07/04/19 09:40 Dose: 0.5 mg Documented by: Sodium Chloride () 5 - 15 ml IV UD PRN PRN Reason: SALINE FLUSH Last Admin: 07/04/19 06:42 Dose: 10 ml Documented by: Sodium Chloride () 10 - 40 ml IV UD PRN PRN Reason: Midline Flush Topiramate (Topamax) 200 mg PO BID PENDING SALE TO [facility] Last Admin: 07/04/19 09:41 Dose: 200 mg Documented by: Venlafaxine HCl (Effexor Xr) 150 mg PO DAILY PENDING SALE TO [facility] Last Admin: 07/04/19 09:41 Dose: 150 mg Documented by: STROKE Vital Signs/Narrative: Vital Signs Temp Pulse Resp BP Pulse Ox 07/04/19 08:19 98.6 F 86 18 120/77 96 Medical Necessity - Tobacco Use Smoking Status: Former smoker Tobacco Use: Vapor Assessment/Plan All Active Problems Acute pancreatitis (Acute) Acute pancreatitis (Resolved) 1. Acute pancreatitis -She has a history of a lap cholecystectomy, however she says that she still had duct stones and had a stent placed a little over a year ago and her common bile duct -We will obtain a right upper quadrant ultrasound to evaluate for the possibility of any stone potentially as well as the appearance of her liver since she has elevated LFTs. Her LFTs today are stable, and she has had significantly elevated LFTs in the past up into the 600s -Continue with IV fluids at 150 cc/h -Continue with IV Dilaudid 0.5 mg every 3 -Continue with ambulation -We will allow her clear liquids 2. History of PE secondary to factor V Leiden -She is on Coumadin as an outpatient and also has an IVC filter -She is currently on prophylactic Lovenox and once she is able to take more consistent p.o. we will restart her Coumadin 3. Seizures -She has been stable on her Keppra and Topamax -Continue 4. History of drug abuse and alcohol abuse/depression/anxiety -She has a history of taking narcotic pills -She will not be discharged on any narcotics -Continue with hydroxyzine and Effexor and risperidone -Continue with ropinirole 5. Migraines -Continue with Topamax and sumatriptan -Stable DVT: Lovenox Code Visit Inpatient E&M: 13165 Subs Hosp L2
[2019-07-04] MEDS: Ondansetron 4 MG/2 ML Vial IV (11:03)
--- NOTE | 2019-07-04 11:16 | CASEMGMT ---
SW met w/pt in room in regard to completing LW/POA. Pt is not feeling well enough to complete the forms at this time. SW explained to pt that after she is discharged, she can call the number for the SW dept on the card she was given yesterday, to set up a time to come in after discharge from the hospital to complete the forms. Pt states understanding. SW asked pt about history of depression and anxiety. Pt states is managing well at present. Pt denies wanting to harm herself. Pt is not in counseling at present and does not feel she needs it at this time. Pt states is on Effexor and Repiradol prescribed by PCP. Pt reports that the medications do help. SW asked pt about history of drug use. Pt states is not using at present, is not on suboxone. Pt has participated in counseling at [facility] in the past, is not going there at present. Pt denies needing any counseling at present. No further needs anticipated at present. SW remains available should any needs arise. JEREMY Zuluaga
[2019-07-04] MEDS: Rizatriptan Benzoate 10 MG Tablet PO ×2 (11:31→22:09)
[2019-07-04] MEDS: 0.9% Normal Saline 1,000 ML 150 ML IV ×2 (11:31→18:46)
[2019-07-04 14:22] VITALS: BP 107/72; PULSE 74; RESP 18; TEMP 36.7; O2SAT 98
[2019-07-04 19:44] VITALS: BP 107/61; PULSE 72; RESP 18; TEMP 37.1; O2SAT 100
[2019-07-04] MEDS: Pramipexole Di-HCl 1 MG Tablet PO (21:58)
[2019-07-05] MEDS: 0.9% Normal Saline 1,000 ML 150 ML IV ×2 (01:23→08:19)
[2019-07-05 02:12] VITALS: BP 96/62; PULSE 77; RESP 18; TEMP 36.6; O2SAT 100
[2019-07-05] MEDS: HYDROmorphone 0.5 MG/0.5 ML SYRINGE IV ×2 (02:21→05:58)
[2019-07-05] MEDS: Ibuprofen 200 MG Tablet PO (04:10)
[2019-07-05] MEDS: Rizatriptan Benzoate 10 MG Tablet PO (05:57)
[2019-07-05 07:52] LABS: Lipase 358 U/L (73-393)
[2019-07-05 08:15] VITALS: BP 107/68; PULSE 73; RESP 16; TEMP 36.8; O2SAT 98
[2019-07-05] MEDS: Venlafaxine XR 150 MG Capsule PO (08:23)
[2019-07-05] MEDS: Enoxaparin 40 MG/0.4 ML Syringe SC (08:24)
[2019-07-05] MEDS: Topiramate 200 MG Tablet PO (08:25)
[2019-07-05] MEDS: RisperiDONE 0.5 MG Tablet PO (08:25)
[2019-07-05 09:10] LABS: ALB/GLOB Ratio 1.2 RATIO (0.9-2.4); AST(SGOT) 69 U/L (15-37); Alanine Aminotransfer ALT/SGPT 167 U/L (13-56); Albumin, Serum 3.2 g/dL (3.2-5.0); Alkaline Phosphatase 149 U/L (45-117); Anion Gap 11 (5-15); BUN 6 mg/dL (7-18); BUN/Creat Ratio 10.5 RATIO (10-20); Calcium,Total 7.8 mg/dL (8.5-10.1); Chloride 113 mmol/L (98-107); Creatinine, Serum 0.57 mg/dL (0.55-1.02); EST Glomerular Filtration Rate 122 mL/min (>60); Est Glom Filt Rate - Afr Amer 148 mL/min (>60); Estimated Creatinine Clearance 108.76 ml/min; Globulin 2.7 g/dL (2.2-4.2); Glucose 59 mg/dL (74-106); Potassium 3.6 mmol/L (3.5-5.1); Protein, Total 5.9 g/dL (6.4-8.2); Sodium Level 141 mmol/L (136-145)
--- NOTE | 2019-07-05 09:27 | NURSING ---
Patient called out stating that she was in pain, Asked patient what her pain level is which she reported 5/10. Asked patient if she had eatten breakfast since we advanced her diet to full liquids. Offered patient ibuprofen since it is important to transition to oral pain meds that the patient is able to take at home. Pt began yelling at this nurse stating she is ordered dilaudid and it is her right to take it was long as she wants until she is discharged. Explained to patient her Pancreatis is resolved, Lipase is in normal limits. This nurse then had a talk with the doctor who also agreed that he did not wish to give patient dilaudid and asked that the med be discontinued and to transition pt to ibuprofen. Pt began acusing this nurse that she stated she was an IV drug user. This nurse explained she never excused patient of being iv drug user but did in fact ask her about her drug and alcohol hx on assessment when she first meant this patient to get an accurate hx d/t she was upset first time this nurse ment her because she stated doctor had asked her how long she was clean from heroin. Pt then took phone out placing it on speaker phone made a phone call to some person and began to tell them that WE are refusing her pain medication, and putting phone in this nurses face stating tell her you wont give me my IV pain medication. Patient also stated she was calling patient adovacate. This nurse explained that she did have this right and she could obtain the number for her if she needed it.
--- NOTE | 2019-07-05 11:20 | NURSING ---
CALLED PTS ROOM MINUTES AFTER SHE CALLED FOR MOTRIN. LET HER KNOW THAT I WAS WAITING ON PHARMACY TO VERIFY MED AND WOULD BRING IT SOON IT WAS AVAILABLE. PT REPORTS UNDERSTANDING
--- NOTE | 2019-07-05 11:33 | NURSING ---
SENT COMMUNICATION TO PHARMACY REQUESTING MOTRIN TO BE VERIFIED. PT IS AWARE WELL
[2019-07-05] MEDS: Ibuprofen 600 MG Tablet PO (11:42)
--- NOTE | 2019-07-05 12:54 | DCINST_ITS ---
- Discharge Diagnoses Current Active Problems: Current Active and Chronic Problems Acute pancreatitis (Acute) You will use the following diet at home:: Regular Your food should be the consistency of: Regular Your liquids should be the consistency of: Regular/Thin Discharge Activity: Return to Normal Activity Call your doctor if you observe: Fever of 101 or Higher, Shortness of breath, Dizziness, Fainting spells, Swelling in the ankles, Chest pain, Increased palpitations (irregular heartbeat) Additional Instructions: Resume your warfarin dosing and have an INR checked in 3-5 days Allergies/Adverse Reactions: Allergies gabapentin [From Neurontin] Allergy (Verified 07/02/19 22:51) Rash morphine Allergy (Verified 07/02/19 22:51) HYPOTENSION Penicillins Allergy (Verified 07/02/19 22:51) Rash Sulfa (Sulfonamide Antibiotics) Allergy (Verified 07/02/19 22:51) Rash PT STATES ONLY HAPPENED ONCE BUT HAS TAKEN SINCE W/ NO PROBLEM Medications to take at Discharge Furosemide [Lasix] 40 mg PO DAILY 09/10/16 Potassium Chloride [K-Dur] 20 meq PO DAILY 09/10/16 Warfarin [Coumadin] 5 mg PO SUTHSA 09/10/16 Risperidone 0.5 mg PO BID 08/03/17 Ropinirole HCl [Requip] 2 mg PO QHS 11/11/17 Topiramate [Topamax] 200 mg PO BID 11/11/17 Levetiracetam [Keppra] 1,250 mg PO BID 10/25/18 Valacyclovir HCl [Valtrex] 500 mg PO DAILY 10/25/18 Warfarin Sodium 2.5 mg PO MOTUWEFR 04/17/19 Sumatriptan Succinate [Imitrex] 50 - 100 mg PO DAILY PRN PRN 05/25/19 Venlafaxine XR [Effexor Xr] 150 mg PO DAILY 05/25/19 Melatonin 6 mg PO QHS 05/26/19 Hydroxyzine Pamoate [Vistaril] 25 mg PO 4X/DAY PRN PRN 06/22/19 Dicyclomine HCl [Bentyl] 20 mg PO TIDAC PRN 07/01/19 Lorazepam [Ativan] 1 mg PO PRN PRN 07/01/19 proMETHazine tablet [Phenergan tablet] 25 mg PO Q6H PRN PRN #10 tab 07/01/19 Primary Care Physician: Rin Rivera NP-C [Primary Care Provider] - Please follow up with your Primary Care Physician in: 3-5 days Test Results: Test results from this visit will be discussed in further detail at your follow- up appointment, if applicable.
--- NOTE | 2019-07-05 13:06 | PCM.DC.SUM ---
Discharge Date and Diagnosis - Problem List Patient Problems: Active and Suspected Problems Acute pancreatitis (Acute) Date of Admission: 07/03/19 Date of Discharge: 07/05/19 - Primary Discharge Diagnosis Active and Suspected Problems Acute pancreatitis (Acute) - Secondary Discharge Diagnosis Chronic Problems Seizure disorder (Chronic) History of drug abuse (Chronic) History of alcohol abuse (Chronic) Anxiety (Chronic) Depression (Chronic) History of pulmonary embolus (PE) (Chronic) lifelong coumadin Factor V Leiden mutation (Chronic) Obesity (BMI 30.0-34.9) (Chronic) Hyperlipidemia (Chronic) Presence of IVC filter (Chronic) Hypertension (Chronic) Hospital Course and Treatment Imaging Results: RUQ US: IMPRESSION: No suspicious sonographic findings, no interval change Consults: None Operations: None Procedures: None Summary of Care Provided: Per HPI: The patient is a 43 year old female patient with a past medical history of drug abuse presents to the emergency room with acute abdominal pain, described as 9/10 in the epigastric area. Onset of this pain began last evening around dinnertime. The patient was found to have a lipase of 1800 and has a relevant past medical history for pancreatitis associated with alcohol abuse which the patient denies at this time. Patient denies chest pain or shortness of breath. The patient has a morphine allergy and history of drug abuse therefore Nubain was chosen as drug of choice to manage her pain at this time. She will be admitted to general medical floor made n.p.o. and treated for pancreatitis. Hospital Course: 1. Acute gyvbjldardio-64-pbel-old female with previous history of pancreatitis as well secondary to Emmie lithiasis. She is status post cholecystectomy and also has a stent in her common bile duct. She presented with a lipase of 1800 and was started on Nubain because she has a history of taking narcotic pills. However the Nubain was not helping with her pain and therefore she was started on Dilaudid. She did improve significantly with IV fluids and on the day of discharge tolerated a full liquid diet for breakfast and lunch while only having her pain managed with ibuprofen. Because she was able to tolerate her diet she requested to go home today with follow-up to her PCP. I agreed to discharge and explained the risks and benefits of going home versus staying here in the hospital. And she understands those risks. I discussed with her the fact that she has been on Lovenox while she is here and that when she goes home she can restart her Coumadin at their normal home dosing, for her factor V Leiden. She will need an INR in a couple of days. She says that she thinks she has a PCP appointment for Tuesday so I asked her to keep that appointment. I did discuss with her that if she has any recurrence of her abdominal pain, or nausea and vomiting, that she is to return to the hospital for evaluation. 2. History of PE secondary to factor V Leiden-her Coumadin was held on admission, and she was initiated on Lovenox prophylaxis. I did discuss with her that she can restart her Coumadin tonight and will need to have an INR in 3 to 5 days. 3. Her other medical diagnoses were evaluated and her home medications were continued where appropriate Patient Problems: Active and Suspected Problems Acute pancreatitis (Acute) Objective: General: Alert, Oriented x3, Cooperative, No apparent distress HEENT: Atraumatic, PERRLA, EOMI, Normocephalic Oral: Dry Mucosa Neck: Supple, No JVD Lungs: Clear to auscultation, Normal air movement, No rhonchi, No wheeze, No rales Cardiovascular: Regular rate, Regular Rhythm, Normal S1, Normal S2, No murmurs Abdomen: Soft, Non-Distended, No Hepato-splenomegaly, Tender - Minimal right upper quadrant and epigastric region Extremities: No edema, Capillary Refill Less than 3 Seconds Skin: No rashes, No breakdown Neurological: Neuro grossly intact, Sensory exam intact to light touch and pain Psych/Mental Status: Normal Affect, Appropriate - Physical Exam Vital Signs Temp Pulse Resp BP Pulse Ox 98.3 F 73 16 107/68 98 07/05/19 08:15 07/05/19 08:15 07/05/19 08:15 07/05/19 08:15 07/05/19 08:15 Oxygen Delivery Method Room Air Weight: 167 lb 15.876 oz Body Mass Index (BMI) 28.8 Intake and Output for Last 24 Hours 07/03/19 07/04/19 07/05/19 23:59 23:59 23:59 Intake Total 3000.00 / 3000.00 3086.67 / 3086.67 3240.0 / 3240.0 Output Total 1000 / 1000 2700 / 2700 Balance 3000.00 / 3000.00 2086.67 / 2086.67 540.0 / 540.0 Laboratory Tests Past 24 Hrs 07/05/19 07/05/19 06:10 06:10 Sodium 141 Potassium 3.6 Chloride 113 H Carbon Dioxide 17.0 L Anion Gap 11 BUN 6 L Creatinine 0.57 Estim Creat Clear Calc 108.76 Est GFR (MDRD) Af Amer 148 Est GFR (MDRD) Non-Af 122 BUN/Creatinine Ratio 10.5 Glucose 59 L Calcium 7.8 L Total Bilirubin 0.50 AST 69 H ALT 167 H Alkaline Phosphatase 149 H Total Protein 5.9 L Albumin 3.2 Globulin 2.7 Albumin/Globulin Ratio 1.2 Lipase 358 Discharge Activity: Return to Normal Activity Call your doctor if you observe: Fever of 101 or Higher, Shortness of breath, Dizziness, Fainting spells, Swelling in the ankles, Chest pain, Increased palpitations (irregular heartbeat) Home Medications: Medications to take at Discharge Furosemide [Lasix] 40 mg PO DAILY 09/10/16 Potassium Chloride [K-Dur] 20 meq PO DAILY 09/10/16 Warfarin [Coumadin] 5 mg PO SUTHSA 09/10/16 Risperidone 0.5 mg PO BID 08/03/17 Ropinirole HCl [Requip] 2 mg PO QHS 11/11/17 Topiramate [Topamax] 200 mg PO BID 11/11/17 Levetiracetam [Keppra] 1,250 mg PO BID 10/25/18 Valacyclovir HCl [Valtrex] 500 mg PO DAILY 10/25/18 Warfarin Sodium 2.5 mg PO MOTUWEFR 04/17/19 Sumatriptan Succinate [Imitrex] 50 - 100 mg PO DAILY PRN PRN 05/25/19 Venlafaxine XR [Effexor Xr] 150 mg PO DAILY 05/25/19 Melatonin 6 mg PO QHS 05/26/19 Hydroxyzine Pamoate [Vistaril] 25 mg PO 4X/DAY PRN PRN 06/22/19 Dicyclomine HCl [Bentyl] 20 mg PO TIDAC PRN 07/01/19 Lorazepam [Ativan] 1 mg PO PRN PRN 07/01/19 proMETHazine tablet [Phenergan tablet] 25 mg PO Q6H PRN PRN #10 tab 07/01/19 Primary Care Physician: Rin Rivera NP-C [Primary Care Provider] - Please follow up with your Primary Care Physician in: 3-5 days Disposition: Home Minutes spent on discharge:: 35 Patient Condition:: Stable Medical Necessity - Tobacco Use Smoking Status: Former smoker Tobacco Use: Vapor Meaningful Use Info Meaningful Use Diagnoses (Choose all that apply): None applicable Code Visit Inpatient E&M: 16289 Disch Hosp
--- NOTE | 2019-07-06 16:23 | CASEMGMT ---
KAY LAWSON Discharge Follow-Up Phone Call. Lacteresa:14 Strata: 4 Discharge Date: 07/05/19 Adm Dx: Pancreatitis. Call to pt to inquire about how she has been doing since being discharged from the hospital. Pt stated she has been doing okay. States she does not have any questions about the discharge instructions or medications. She states she has made a follow-up appt with Rin Rivera NP, for Jul 11. Pt voiced concerns w/discharging physcian. Referred pt to call Pt advocate. She states she has called the patient advocate and left a message with Margie and is awaiting a call back. Pt thanked KAY LAWSON for calling. Chuy SANCHEZ RN, CM
== END 2019-07-05 13:56 | disposition home or self-care (01) | DRG 439 ==
LOC: ED 07-03 04:17 → MS2 07-03 05:33
PROVIDERS: Admitting Provider Family Medicine; Emergency Provider Emergency Medicine; Family Provider Nurse Practitioner Family; PCP Nurse Practitioner Family; Visit Provider Family Medicine
DX: K85.90 Acute pancreatitis without necrosis or infection, unspecified (principal); D68.51 Activated protein C resistance; G43.909 Migraine, unspecified, not intractable, without status migrainosus; G40.909 Epilepsy, unspecified, not intractable, without status epilepticus; F41.9 Anxiety disorder, unspecified; F32.9 Major depressive disorder, single episode, unspecified; I10 Essential (primary) hypertension; Z95.828 Presence of other vascular implants and grafts; Z79.01 Long term (current) use of anticoagulants; E78.5 Hyperlipidemia, unspecified; Z90.49 Acquired absence of other specified parts of digestive tract; E66.9 Obesity, unspecified; Z86.711 Personal history of pulmonary embolism; Z68.28 Body mass index [BMI] 28.0-28.9, adult; F17.290 Nicotine dependence, other tobacco product, uncomplicated; F10.11 Alcohol abuse, in remission
CPT/HCPCS: 36415; 70450; 76705; 80053; 83690; 85025; 85610; 96372; 97802; 99282; 99285; 99406; J7030; A4216; J2405

== ENCOUNTER 2019-07-24 16:49 | Emergency (ER) | payer MEDICARE, SELFPAY ==
[2019-07-03 05:25] VITALS: BMI 28.8
[2019-07-24 16:51] VITALS: BP 109/88; PULSE 84; RESP 16; TEMP 36.8; O2SAT 99; BMI 28.3
--- NOTE | 2019-07-24 17:03 | ED.DCSUM_ITS ---
History of Present Illness Chief Complaint: Seizure Informant: Patient Onset: Yesterday Context: Gradual Onset Timing: Intermittent Current Severity: Moderate Maximum Severity: Moderate Narrative: The patient is a 43-year-old female with history of factor V Leiden prior stroke, pulmonary embolus, and seizure disorder who presents to the emergency department increasing seizure aura. The patient states she has not had a tonic- clonic seizure in about a month. She recently had her Topamax increased to 200 mg in the morning and 500 mg at night. She is also on 1250 of Keppra twice daily. She states that for the past 24 hours, she is had increasing aura where she has mild headache, nausea, and eye twitching. She states she is taken 2 of her rescue Ativan. She denies any fevers or chills. She denies any trauma. She has not had a full-blown seizure. She states otherwise, she is been in her normal state of health. Prior similar symptoms: Yes Recent Illness/Hospitalization: No Past Medical History - Allergies and Home Meds Allergies/Adverse Reactions: Allergies gabapentin [From Neurontin] Allergy (Verified 07/24/19 16:51) Rash morphine Allergy (Verified 07/24/19 16:51) HYPOTENSION Penicillins Allergy (Verified 07/24/19 16:51) Rash Sulfa (Sulfonamide Antibiotics) Allergy (Verified 07/24/19 16:51) Rash PT STATES ONLY HAPPENED ONCE BUT HAS TAKEN SINCE W/ NO PROBLEM Primary Care Physician: Rin Rivera NP-C [Primary Care Provider] - Prior records reviewed: Yes Surgical History: appendectomy, cholecystectomy, hysterectomy, - - x2, hysterectomy, cholecystectomy, appendectomy, tonsillectomy and adenectomy, [place] filter placed. Smoking Status: Former smoker - Family History Paternal Family History: Reports: Hypertension, - Maternal Family History: Reports: Unknown Review of Systems General: Denies: Chills, Fever, Sweats Eyes: Denies: Visual changes - bilaterally, Diplopia ENT: Denies: Rhinorrhea, Sore throat Cardiovascular: Denies: Chest pain, Palpitations Respiratory: Denies: Dyspnea, Cough, Dyspnea on exertion Gastrointestinal: Reports: Nausea. Denies: Abdominal pain, Vomiting, Diarrhea, Melena, Hematochezia Genitourinary: Denies: Dysuria, Hematuria, Frequency Musculoskeletal: Denies: Back pain, Extremity Pain Skin: Denies: Rash, Wounds Neurological: Reports: Headache. Denies: Weakness, Numbness Physical Exam Vital Signs/Narrative: Vital Signs Temp Pulse Resp BP Pulse Ox 07/24/19 16:51 98.3 F 84 16 109/88 H 99 Inital Vital Signs reviewed: Yes General: Well nourished, Well developed, No Acute Distress Head: Normocephalic, Atraumatic Eyes: Perrl, EOMI ENT: Moist mucous membranes, No rhinorrhea Neck: Supple, Nontender Cardiovascular: Regular rate, Regular rhythm, No murmurs Respiratory: No distress, CTA bilaterally, Chest nontender Abdomen: Soft, Nontender, Nondistended, Normal bowel sounds Back: Nontender, Normal Inspection Extremities: Nontender, No edema Skin: Normal color, No rash Neurological: Alert, Oriented x3, Cranial nerves II-XII grossly intact, Normal Strength, Normal Sensation Psychological: Normal affect, Normal Mood Diagnostic/Tx/Re-eval Abnormal Lab Results 07/24/19 07/24/19 07/24/19 17:05 17:05 17:05 WBC 6.1 RBC 4.39 Hgb 14.3 Hct 41.7 MCV 95.0 MCH 32.6 H MCHC 34.3 RDW Std Deviation 40.9 RDW Coeff of Megan 11.8 Plt Count 257 MPV 8.2 Immature Gran % (Auto) 0.200 Neut % (Auto) 50.9 Lymph % (Auto) 41.3 H Howell % (Auto) 5.9 Eos % (Auto) 1.0 Baso % (Auto) 0.7 Absolute Neuts (auto) 3.1 Absolute Lymphs (auto) 2.50 Nucleated RBC % 0 PT 22.0 H INR 1.9 Sodium 141 Potassium 3.4 L Chloride 111 H Carbon Dioxide 22.0 Anion Gap 8 BUN 13 Creatinine 0.69 Estim Creat Clear Calc 86.07 Est GFR (MDRD) Af Amer 119 Est GFR (MDRD) Non-Af 99 BUN/Creatinine Ratio 19.0 Glucose 89 Calcium 8.5 Total Bilirubin 0.20 AST 21 ALT 64 H Alkaline Phosphatase 131 H Total Protein 7.6 Albumin 4.0 Globulin 3.6 Albumin/Globulin Ratio 1.1 - Medical Decision Making The patient presents to the emergency department with possible seizure with no breakthrough seizure. She was placed on seizure precautions. She was complaining of a mild headache, but had no new focal neurologic symptoms. Screening labs were obtained and are relatively unremarkable. The patient was given fluids, Ativan, and Zofran. She still had a mild headache and this was treated with Phenergan and Benadryl. I did discuss her care with neurology on- call at [facility]. She has not had breakthrough seizure, we are going to increase her Keppra level to 1500 mg. She is given her nighttime dose. They are going to arrange outpatient follow-up as the patient has been referred to video EEG to determine if there needs to be any different treatment. The patient has not had any seizure activity, I do feel that she is safe for outpatient therapy. She is comfortable with this plan of care. Impression 1. Seizure aura ED Disposition - Plan for ED Patient: Instructions: SEIZURE, Recurrent [Adult] Referrals: Rin Rivera NP-C [Primary Care Provider] - Additional Instructions: Increase her Keppra to 1500 mg twice a day.
[2019-07-24] MEDS: 0.9% Normal Saline 1,000 ML 1000 ML IV (17:12)
[2019-07-24] MEDS: LORazepam 2 MG/ML Syringe 1 MG IV (17:13)
[2019-07-24] MEDS: Ondansetron 4 MG/2 ML Vial IV (17:13)
[2019-07-24 17:30] LABS: Absolute Neutrophil Count 3.1 X10^3/uL (2.0-7.7); Basophil# 0.04 X10^3/uL; Basophil% 0.7 % (0-1); Eosinophil# 0.06 X10^3/uL; Hematocrit 41.7 % (37-47); Hemoglobin 14.3 g/dL (12.0-15.0); Lymphocyte % 41.3 % (19-41); Mean Corp Hgb Conc 34.3 g/dL (32-36); Mean Corpuscular Hgb 32.6 pg (27.0-32.0); Mean Platelet Vol. 8.2 fl (6.2-12.0); Monocyte# 0.36 X10^3/uL; Monocyte% 5.9 % (0-10); NRBC Flagged by Analyzer 0 % (0-5); Neutrophil # 3.09 X10^3/uL (2.7-7.7); Neutrophil % 50.9 % (47-70); Platelet Count 257 K/mm3 (150-450); RBC Distribution Width CV 11.8 % (11.6-14.6); RBC Distribution Width SD 40.9 fl (35.1-43.9); Red Blood Count 4.39 M/mm3 (4.2-5.4); White Blood Count 6.1 K/mm3 (4.4-11.0)
[2019-07-24 17:36] LABS: International Normalized Ratio 1.9
[2019-07-24 17:49] LABS: ALB/GLOB Ratio 1.1 RATIO (0.9-2.4); AST(SGOT) 21 U/L (15-37); Alanine Aminotransfer ALT/SGPT 64 U/L (13-56); Alkaline Phosphatase 131 U/L (45-117); Anion Gap 8 (5-15); BUN 13 mg/dL (7-18); Calcium,Total 8.5 mg/dL (8.5-10.1); Chloride 111 mmol/L (98-107); Creatinine, Serum 0.69 mg/dL (0.55-1.02); EST Glomerular Filtration Rate 99 mL/min (>60); Est Glom Filt Rate - Afr Amer 119 mL/min (>60); Estimated Creatinine Clearance 86.07 ml/min; Globulin 3.6 g/dL (2.2-4.2); Glucose 89 mg/dL (74-106); Potassium 3.4 mmol/L (3.5-5.1); Protein, Total 7.6 g/dL (6.4-8.2); Sodium Level 141 mmol/L (136-145)
[2019-07-24] MEDS: proMETHazine 25 MG/ML Syringe 6.25 MG IV (18:12)
[2019-07-24] MEDS: DiphenhydrAMINE 50 MG/ML Syringe IV (18:12)
[2019-07-24] MEDS: levETIRAcetam 500 MG Tablet 1500 MG PO (18:54)
[2019-07-24 18:58] LABS: Mucous, Urine 0 SEEN /hpf (<or=2+); Red Blood Cells-Urine 0 SEEN /hpf (0-5); Squamous Epithelial Cells - UA 0 SEEN /hpf (5-10); White Blood Cells 0 SEEN /hpf (0-5)
[2019-07-24 19:07] LABS: Color, Urine Yellow (Yellow); Glucose, Dipstick Normal (Normal); Ketone-Dipstick Negative (Negative); Leukocyte Esterase-Dipstick Negative /ul (Negative); Nitrite-Dipstick Negative (Negative); Occult Blood-Urine Negative /ul (Negative); Protein-Dipstick Negative (Negative); Urine Bilirubin Dipstick Negative (Negative); Urine Clarity Clear (Clear); Urine Urobilinogen Normal (Normal)
[2019-07-24 19:13] LABS: Bacteria 1+ /hpf (None Seen)
[2019-07-24 19:16] VITALS: BP 101/73; PULSE 78; RESP 14; O2SAT 99
[2019-07-24] MEDS: Nalbuphine 10 MG/ML Ampul IV (19:28)
[2019-07-24 19:32] VITALS: BP 101/70; PULSE 79; RESP 16; O2SAT 100
== END 2019-07-24 19:47 | disposition home or self-care (01) ==
LOC: ED 17:11
PROVIDERS: Emergency Provider Emergency Medicine; Family Provider Nurse Practitioner Family; PCP Nurse Practitioner Family
DX: G40.909 Epilepsy, unspecified, not intractable, without status epilepticus (principal); Z82.49 Family history of ischemic heart disease and other diseases of the circulatory system; Z86.711 Personal history of pulmonary embolism; Z86.73 Personal history of transient ischemic attack (TIA), and cerebral infarction without residual deficits; Z87.891 Personal history of nicotine dependence; Z88.0 Allergy status to penicillin; Z88.2 Allergy status to sulfonamides; Z88.8 Allergy status to other drugs, medicaments and biological substances; Z90.49 Acquired absence of other specified parts of digestive tract; Z90.710 Acquired absence of both cervix and uterus; D68.51 Activated protein C resistance
CPT/HCPCS: 80053; 81001; 85025; 85610; 96361; 96374; 96375; 99285; J7030; A4216; J2405

== ENCOUNTER 2019-07-27 09:26 | Emergency (ER) | payer MEDICARE, SELFPAY ==
[2019-07-27 09:26] VITALS: BP 150/106; PULSE 111; RESP 18; TEMP 36.6; O2SAT 98; BMI 27.8
[2019-07-27 09:29] VITALS: BP 150/106; PULSE 111; RESP 18; TEMP 36.6; O2SAT 98
[2019-07-27] MEDS: oxyCODONE 5 MG Tablet PO ×2 (09:43→11:06)
[2019-07-27 09:45] LABS: Bacteria 0 SEEN /hpf (None Seen); Mucous, Urine 0 SEEN /hpf (<or=2+)
--- NOTE | 2019-07-27 09:46 | ED.DCSUM_ITS ---
- ER Visit Summary Date of Service: 07/27/19 Chief Complaint: UTI History of Present Illness: The patient is a 43 F with UTI symptoms. She woke up early this morning with burning and frequency. She had similar symptoms in the past with UTIs. She has suprapubic pain and bilateral flank pain. She denies fevers or other associated symptoms. She is not currently on antibiotics. She does take warfarin for history of venous thromboembolism. She says her INR has been low and they recently increased her dose. Physical Examination: Afebrile. Heart rate 111, otherwise vitals normal. Patient alert and oriented. No acute distress. Suprapubic tenderness to palpation. No guarding or rebound. Bilateral flank tenderness with light touch. Test Results: INR pending. Urinalysis pending. Emergency Department Course and Treatment: Patient presents with UTI symptoms, possible early pyelonephritis. No signs of sepsis. Prior CT showed no evidence of renal or ureteral calculus. Will check urine testing and INR. Patient was treated with oxycodone IR while awaiting results. INR 2.1. Urinalysis shows signs of UTI. Cultures pending. Patient was treated with Macrobid as this is worked in the past. We will treat with Pyridium as well. Follow-up as an outpatient. Treatment Plan: As above Disposition: Discharge Impression: UTI, pyelonephritis This note was generated with [employer] dictation software. It may contain incorrect words, spelling, and punctuation that were not noted in review of the chart prior to signing ED Disposition - Plan for ED Patient: Referrals: Rin Rivera NP-C [Primary Care Provider] -
[2019-07-27 09:47] LABS: Color, Urine Straw (Yellow); Glucose, Dipstick Normal (Normal); Ketone-Dipstick Negative (Negative); Leukocyte Esterase-Dipstick 100 /ul (Negative); Nitrite-Dipstick Negative (Negative); Occult Blood-Urine 50 /ul (Negative); Protein-Dipstick Negative (Negative); Urine Bilirubin Dipstick Negative (Negative); Urine Clarity Sl. Cloudy (Clear); Urine Urobilinogen Normal (Normal)
[2019-07-27 09:50] LABS: Internal QC Validated? YES +Cl - CLEAR BKGD; Pregnancy, Urine Negative Negative
[2019-07-27 10:00] LABS: Red Blood Cells-Urine 0-5 SEEN /hpf (0-5); Squamous Epithelial Cells - UA 0-5 SEEN /hpf (5-10); White Blood Cells 10-25 SEEN /hpf (0-5)
[2019-07-27 10:06] LABS: International Normalized Ratio 2.1; Prothrombin Time (Protime)PT. 23.2 SECONDS (11.7-14.9)
[2019-07-27 10:29] VITALS: TEMP 36.8
--- NOTE | 2019-07-27 10:58 | ED.DEP ---
ED Disposition - Plan for ED Patient: Instructions: Bladder Infection, Female (Adult) Prescriptions: Nitrofurantoin Macrocrystals [Macrobid] 100 mg PO Q12 #20 cap Prescription Printed Phenazopyridine HCl [Pyridium] 200 mg PO TID #6 tab Prescription Printed Referrals: Rin Rivera NP-C [Primary Care Provider] -
[2019-07-27] MEDS: Nitrofurantoin Macrocrystals 100 MG Capsule PO (11:06)
[2019-07-27] MEDS: Phenazopyridine 95 MG Tablet 190 MG PO (11:06)
[2019-07-27 11:08] VITALS: BP 150/106; PULSE 111; RESP 16; TEMP 36.8; O2SAT 98
== END 2019-07-27 11:36 | disposition home or self-care (01) ==
PROVIDERS: Emergency Provider Emergency Medicine; Family Provider Nurse Practitioner Family; PCP Nurse Practitioner Family
DX: N12 Tubulo-interstitial nephritis, not specified as acute or chronic (principal); Z79.01 Long term (current) use of anticoagulants; Z86.718 Personal history of other venous thrombosis and embolism
CPT/HCPCS: 81001; 81025; 85610; 87086; 87088; 99283

== ENCOUNTER 2019-07-31 19:18 | Emergency (ER) | payer MEDICARE, SELFPAY ==
[2019-07-31 19:19] VITALS: BP 112/91; PULSE 106; RESP 18; TEMP 36.7; O2SAT 97; BMI 29.4
--- NOTE | 2019-07-31 19:58 | ED.DCSUM_ITS ---
History of Present Illness Chief Complaint: Headache Informant: Patient Onset: Today Context: Gradual Timing: Continuous Quality: Similar Prior Headaches, Throbbing Current Severity: Severe Maximum Severity: Severe Associated Symptoms: Nausea, Tingling, Preceding Aura, Blurred Vision Narrative: Patient is a 43-year-old female with history of seizure disorder as well as migraine headaches presenting for concern for migraine headache and seizure aura. Patient states her symptoms for her seizure aura started around noon today. She states she had her typical aura which included feeling off balance, dizzy and a cold feeling on her face and arm. She noticed around 5 PM she developed a headache. She states it is behind her right eye and throbbing. She has associated photophobia but states it is mild. Patient took her rescue medications including Ativan and Imitrex with no relief. She is also taking her daily Keppra and Topamax. States in addition she is also on Macrobid for urinary tract infection as well as Pyridium. Patient's last seizure was 1 month ago. She states that her partial seizures. Her neurologist is at [facility]. Patient denies any recent head injuries or falls. She had a negative head CT 1 month ago. Patient is on Coumadin for history of factor V Leiden and states she had a normal INR 3 days ago. Prior similar symptoms: Yes Past Medical History - Allergies and Home Meds Allergies/Adverse Reactions: Allergies gabapentin [From Neurontin] Allergy (Verified 07/27/19 09:29) Rash morphine Allergy (Verified 07/27/19 09:29) HYPOTENSION Penicillins Allergy (Verified 07/27/19 09:29) Rash Sulfa (Sulfonamide Antibiotics) Allergy (Verified 07/27/19 09:29) Rash PT STATES ONLY HAPPENED ONCE BUT HAS TAKEN SINCE W/ NO PROBLEM Primary Care Physician: Rin Rivera, ALLEN-C [Primary Care Provider] - Past Medical History: - - Migraine headaches, factor V Leiden, chronic Coumadin therapy, partial seizures Surgical History: appendectomy, cholecystectomy, hysterectomy, - - x2, hysterectomy, cholecystectomy, appendectomy, tonsillectomy and adenectomy, [place] filter placed. Smoking Status: Former smoker - Family History Paternal Family History: Reports: Hypertension, - Maternal Family History: Reports: Unknown Review of Systems General: Reports: Chills. Denies: Fever, Sweats Eyes: Reports: Visual changes - bilaterally. Denies: Diplopia ENT: Denies: Rhinorrhea, Sore throat Cardiovascular: Denies: Chest pain, Palpitations Respiratory: Denies: Dyspnea, Cough, Dyspnea on exertion Gastrointestinal: Reports: Nausea. Denies: Abdominal pain, Vomiting, Diarrhea, Melena, Hematochezia Genitourinary: Denies: Dysuria, Hematuria, Frequency Musculoskeletal: Denies: Neck pain, Back pain, Extremity Pain Skin: Denies: Rash, Wounds Neurological: Reports: Headache, - - Feeling off balance. Denies: Weakness, Numbness Physical Exam Vital Signs/Narrative: Vital Signs Temp Pulse Resp BP Pulse Ox 07/31/19 19:19 98.1 F 106 H 18 112/91 H 97 Inital Vital Signs reviewed: Yes General: Well nourished, Well developed Head: NC, AT Eyes: Perrl, EOMI, - - No nystagmus ENT: Moist mucous membranes, No rhinorrhea, TM's clear Neck: Supple, No Lymphadenopathy, No JVD, Nontender, No Meningismus. Negative for: Paraspinal Tenderness Cardiovascular: Regular rate, Regular rhythm, No murmurs Respiratory: No distress, CTA bilaterally, Chest nontender Abdomen: Soft, Nontender, Nondistended, Normal bowel sounds Back: Nontender, Normal Inspection Extremities: Nontender, No edema Skin: Normal color, No rash Neuro: Alert, Oriented x3, Cranial nerves II-XII grossly intact, Normal Strength, Normal Sensation, Normal DTR, Normal Gait, - - Normal coordination, no truncal ataxia. Negative for: Left side facial droop, Right side facial droop Psychological: Normal affect Diagnostic/Tx/Re-eval - Medical Decision Making Patient is evaluated for migraine headache and arm. She appears nontoxic in no acute distress. She has normal neurologic exam. She does not have any focal neurologic deficits. Patient did not sustain any head injuries. I do not think repeat imaging is indicated. She had an INR checked a couple days ago which is normal. 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 Patient does not demonstrate any seizure activity. Patient took her rescue Ativan prior to arrival. She does have a care plan. IV fluids, Compazine and Benadryl are given per care plan. On reevaluation she states she still has a h eadache. She is then given IV Decadron. Discussed with nurse practitioner for her neurologist up at [facility] at the epilepsy center who agreed with trying Depakote next. She agrees with avoiding any opioids for her headache because of the risk of rebound headache. In addition, patient's care plan recommends avoiding any opioids for her chronic headache. Patient be discharged home with instructions to follow-up with her neurologist. Patient does not have any meningeal signs. She is otherwise well-appearing. Patient is counseled on signs and symptoms requiring return to the emergency room. Patient verbalizes agreement and understand this plan. Patient discharged home in stable and improved condition. Disposition: Home ED Disposition - Plan for ED Patient: Disposition: Home or Assisted Living Diagnosis: Migraine headache Instructions: ED, Migraine (Classical) Referrals: Rin Rivera NP-C [Primary Care Provider] - Additional Instructions: Please follow-up at the neurology clinic for further evaluation of your headaches and seizure medications.
[2019-07-31] MEDS: 0.9% Normal Saline 1,000 ML 999 ML IV (20:36)
[2019-07-31] MEDS: DiphenhydrAMINE 50 MG/ML Syringe IV (20:36)
[2019-07-31] MEDS: proCHLORPERazine 10 MG/2 ML Vial IV (20:37)
[2019-07-31] MEDS: dexAMETHasone 10 MG/ML Vial IV (21:59)
[2019-07-31 22:00] VITALS: BP 98/70; PULSE 69; RESP 17; O2SAT 97
[2019-08-01 00:22] VITALS: BP 95/72; PULSE 68; RESP 14; O2SAT 96
== END 2019-08-01 00:47 | disposition home or self-care (01) ==
PROVIDERS: Emergency Provider Emergency Medicine; Family Provider Nurse Practitioner Family; PCP Nurse Practitioner Family
DX: G43.909 Migraine, unspecified, not intractable, without status migrainosus (principal); G40.909 Epilepsy, unspecified, not intractable, without status epilepticus; N39.0 Urinary tract infection, site not specified; D68.51 Activated protein C resistance; Z79.01 Long term (current) use of anticoagulants; Z88.0 Allergy status to penicillin; Z87.891 Personal history of nicotine dependence; Z82.49 Family history of ischemic heart disease and other diseases of the circulatory system; Z88.2 Allergy status to sulfonamides; Z88.8 Allergy status to other drugs, medicaments and biological substances; Z90.49 Acquired absence of other specified parts of digestive tract; Z90.710 Acquired absence of both cervix and uterus
CPT/HCPCS: 96361; 96374; 96375; 99285; J7030; A4216

== ENCOUNTER 2019-08-09 00:37 | Emergency (ER) | payer MEDICARE, SELFPAY ==
[2019-08-09 00:38] VITALS: BP 146/84; PULSE 89; RESP 16; TEMP 36.8; O2SAT 99; BMI 30.1
[2019-08-09 01:34] LABS: Internal QC Validated? YES +Cl - CLEAR BKGD; Pregnancy, Urine Negative Negative
[2019-08-09 01:35] LABS: Color, Urine Yellow (Yellow); Glucose, Dipstick Normal (Normal); Ketone-Dipstick Negative (Negative); Leukocyte Esterase-Dipstick Negative /ul (Negative); Nitrite-Dipstick Negative (Negative); Occult Blood-Urine Negative /ul (Negative); Protein-Dipstick Negative (Negative); Specific Gravity, Urine 1.015 (1.002-1.030); Urine Bilirubin Dipstick Negative (Negative); Urine Clarity Clear (Clear); Urine Urobilinogen Normal (Normal); Urine pH 6.5 (5.0 - 8.0)
[2019-08-09] MEDS: Orphenadrine 60 MG/2 ML Ampul IM (02:14)
[2019-08-09] MEDS: Acetaminophen 500 MG Tablet 1000 MG PO (02:14)
--- NOTE | 2019-08-09 02:37 | ED.VIS.BACK ---
History of Present Illness Chief Complaint: Flank Pain Informant: Patient Onset: Yesterday Context: Gradual Onset Timing: Continuous Quality: Sharp, Aching Location: Lumbar Current Severity: Severe Worsened by: improves with: Movement Relieved by: Nothing Narrative: Patient is a 43-year-old female with history of seizure disorder and migraines presenting with back pain. Patient states it started at 4 AM yesterday, about 20 hours ago. She does have some associated nausea and dizziness when the pain started. She denies any injury. States she was in bed when it started. She notes that the pain is much worse with movement. She states she had decreased urination today but increased urination tonight. She did take a dose of Naprosyn which did not help the pain. She denies any history of back problems. Patient is concerned because she has a history of urinary tract infections. Her last one was 2 weeks ago and she was treated with a course of Macrobid. Patient denies any dysuria or hematuria. Patient is on Coumadin secondary to clotting disorder. She states her INR was 3.9 on Tuesday. Patient currently denies any nausea. She said no associated vomiting. She is had no fever. Patient does follow with posterior urology. Patient denies any saddle anesthesia, difficulty walking or numbness of her lower legs. She denies any trauma. She denies any other complaints at this time. Past Medical History - Allergies and Home Meds Allergies/Adverse Reactions: Allergies gabapentin [From Neurontin] Allergy (Verified 08/09/19 00:38) Rash morphine Allergy (Verified 08/09/19 00:38) HYPOTENSION Penicillins Allergy (Verified 08/09/19 00:38) Rash Sulfa (Sulfonamide Antibiotics) Allergy (Verified 08/09/19 00:38) Rash PT STATES ONLY HAPPENED ONCE BUT HAS TAKEN SINCE W/ NO PROBLEM Primary Care Physician: Rin Rivera, ALLEN-C [Primary Care Provider] - Prior records reviewed: Yes Past Medical History: - - Pancreatitis, seizure disorder, anxiety/depression, factor V Leiden, hyperlipidemia, hypertension Surgical History: appendectomy, cholecystectomy, hysterectomy, - - x2, hysterectomy, cholecystectomy, appendectomy, tonsillectomy and adenectomy, [place] filter placed. Smoking Status: Current every day smoker - Family History Paternal Family History: Reports: Hypertension, - Maternal Family History: Reports: Unknown Review of Systems General: Denies: Chills, Fever, Sweats Eyes: Denies: Visual changes - bilaterally, Diplopia ENT: Denies: Rhinorrhea, Sore throat Cardiovascular: Denies: Chest pain, Palpitations Respiratory: Denies: Dyspnea, Cough, Dyspnea on exertion Gastrointestinal: Reports: Nausea. Denies: Abdominal pain, Vomiting, Diarrhea, Melena, Hematochezia Genitourinary: Denies: Dysuria, Hematuria, Frequency Musculoskeletal: Reports: Back pain. Denies: Arthralgias, Neck pain, Extremity Pain Skin: Denies: Rash, Wounds Neurological: Denies: Headache, Weakness, Numbness Physical Exam Vital Signs/Narrative: Vital Signs Temp Pulse Resp BP Pulse Ox 08/09/19 00:38 98.3 F 89 16 146/84 H 99 Inital Vital Signs reviewed: Yes General: Well nourished, Well developed Head: Normocephalic, Atraumatic Eyes: Perrl, EOMI ENT: Moist mucous membranes, No rhinorrhea Neck: Supple, Nontender Cardiovascular: Regular rate, Regular rhythm, No murmurs Respiratory: No distress, CTA bilaterally, Chest nontender Abdomen: Soft, Nontender, Nondistended, Normal bowel sounds. Negative for: Guarding, Rebound tenderness Back: Normal Inspection, Paraspinal Tenderness - Left upper lumbar/lower thoracic region, Negative SLR - Right, Negative SLR - Left, - - No midline tenderness. Negative for: CVA tenderness Extremeties: Nontender, No edema Skin: Normal color, No rash Neuro: Alert, Oriented, Normal Strength, Normal Sensation, Normal DTR, Normal Gait. Negative for: Weakness, Parasthesia Psychological: Normal affect Diagnostic/Tx/Re-eval - Medical Decision Making Evaluated for back pain. She is concerned it might be a urinary tract infection. Urinalysis is normal. No signs of infection or kidney stone. I suspect patient's symptoms are muscle skeletal as they worse with movement and reproducible with palpation. Patient is given IM Norflex and a dose of Tylenol. Patient is instructed to take Tylenol as needed for pain at home. She is given a prescription for Flexeril for home. Patient does not have findings consistent with cauda equina syndrome. Her abdomen is soft I do not suspect an acute intra-abdominal pathology at this time. Patient is counseled on signs and symptoms requiring return to the emergency room. Patient verbalizes agreement and understand this plan. Patient discharged home in stable and improved condition. ED Disposition - Plan for ED Patient: Disposition: Home or Assisted Living Diagnosis: Low back pain Instructions: BACK PAIN (Acute or Chronic) Prescriptions: cycloBENZAPRine HCl [Flexeril] 10 mg PO TID PRN #20 tab PRN Reason: Muscle Spasm Prescription Printed Referrals: Rin Rivera NP-C [Primary Care Provider] - Additional Instructions: You did not have any findings consistent with urinary tract infection. Return if you have worsening symptoms. Take Tylenol in addition to the muscle relaxant for your pain. Do not take any more anti-inflammatory such as Naprosyn since you are on Coumadin. It is very importantly follow-up with your primary care doctor.
[2019-08-09 02:46] VITALS: BP 131/71; PULSE 73; RESP 16; O2SAT 98
== END 2019-08-09 02:48 | disposition home or self-care (01) ==
PROVIDERS: Emergency Provider Emergency Medicine; Family Provider Nurse Practitioner Family; PCP Nurse Practitioner Family
DX: M54.5 Low back pain (principal); D68.51 Activated protein C resistance; E78.5 Hyperlipidemia, unspecified; F32.9 Major depressive disorder, single episode, unspecified; F41.9 Anxiety disorder, unspecified; I10 Essential (primary) hypertension; G40.909 Epilepsy, unspecified, not intractable, without status epilepticus; F17.200 Nicotine dependence, unspecified, uncomplicated; Z82.49 Family history of ischemic heart disease and other diseases of the circulatory system; Z88.0 Allergy status to penicillin; Z88.8 Allergy status to other drugs, medicaments and biological substances; Z88.2 Allergy status to sulfonamides; Z90.49 Acquired absence of other specified parts of digestive tract; Z90.710 Acquired absence of both cervix and uterus
CPT/HCPCS: 81002; 81025; 96372; 99283

== ENCOUNTER 2019-09-03 15:27 | Emergency (ER) | payer MEDICARE, SELFPAY ==
[2019-09-03 15:29] VITALS: BP 112/83; PULSE 93; RESP 16; TEMP 36.4; O2SAT 100; BMI 29.2
--- NOTE | 2019-09-03 15:36 | ED.DCSUM_ITS ---
History of Present Illness Chief Complaint: Headache Informant: Patient Onset: Today Narrative: Presents with migraine headache symptoms 1 hour ago. States having aura and photophobia. No head injuries. History of similar. Also has history of seizures on Keppra 1250 mg twice a day, states these are prodromal symptoms to her seizures. Reports her last breakthrough seizure was a couple months ago. She states she missed her Keppra and Topamax 2 days ago 1 dose however has been taking it would last dose this morning. She is followed by [facility] epilepsy unit. Planes of nausea. No vomiting. She is also on warfarin for history of factor V with PEs in the past. She reports no missed doses. Her last check was 2 weeks ago. Reports similar symptoms in the past been seen in the ED with treatment. No fevers or neck pain. Prior similar symptoms: Yes Past Medical History - Allergies and Home Meds Allergies/Adverse Reactions: Allergies gabapentin [From Neurontin] Allergy (Verified 09/03/19 15:28) Rash morphine Allergy (Verified 09/03/19 15:28) HYPOTENSION Penicillins Allergy (Verified 09/03/19 15:28) Rash Sulfa (Sulfonamide Antibiotics) Allergy (Verified 09/03/19 15:28) Rash PT STATES ONLY HAPPENED ONCE BUT HAS TAKEN SINCE W/ NO PROBLEM Primary Care Physician: Rin Rivera NP-C [Primary Care Provider] - Surgical History: appendectomy, cholecystectomy, hysterectomy, - - x2, hysterectomy, cholecystectomy, appendectomy, tonsillectomy and adenectomy, [place] filter placed. Smoking Status: Current every day smoker - Family History Paternal Family History: Reports: Hypertension, - Maternal Family History: Reports: Unknown Review of Systems General: Denies: Chills, Fever, Sweats Eyes: Denies: Visual changes - bilaterally, Diplopia ENT: Denies: Rhinorrhea, Sore throat Cardiovascular: Denies: Chest pain, Palpitations Respiratory: Denies: Dyspnea, Cough, Dyspnea on exertion Gastrointestinal: Reports: Nausea. Denies: Abdominal pain, Vomiting, Diarrhea, Melena, Hematochezia Genitourinary: Denies: Dysuria, Hematuria, Frequency Musculoskeletal: Denies: Back pain, Extremity Pain Skin: Denies: Rash, Wounds Neurological: Reports: Headache. Denies: Weakness, Numbness Physical Exam Vital Signs/Narrative: Vital Signs Temp Pulse Resp BP Pulse Ox 09/03/19 15:29 97.5 F L 93 16 112/83 H 100 Inital Vital Signs reviewed: Yes General: Well nourished, Well developed, - - Mild anxious Head: Normocephalic, Atraumatic Eyes: Perrl, EOMI ENT: Moist mucous membranes, No rhinorrhea Neck: Supple, Nontender, - - no meningismus Cardiovascular: Regular rate, Regular rhythm, No murmurs Respiratory: No distress, CTA bilaterally, Chest nontender Abdomen: Soft, Nontender, Nondistended, Normal bowel sounds Back: Nontender, Normal Inspection Extremities: Nontender, No edema Skin: Normal color, No rash Neurological: Alert, Oriented x3, Cranial nerves II-XII grossly intact, Normal Strength, Normal Sensation Psychological: Normal affect, Normal Mood Diagnostic/Tx/Re-eval Abnormal Lab Results 09/03/19 09/03/19 16:15 17:31 PT Cancelled 26.1 H INR Cancelled 2.4 - Medical Decision Making Patient with no focal neurologic deficits. No meningismus. Her headaches with aura treated with migraine cocktail Reglan Benadryl IV fluids. INR was checked was 2.4. Reevaluation symptoms resolved. There is no seizure activity. She will continue her medicines at home. Follow-up as an outpatient. ED Disposition - Plan for ED Patient: Disposition: Home or Assisted Living Diagnosis: Migraine headache with aura Instructions: ED, Migraine (Classical) Referrals: Rin Rivera NP-C [Primary Care Provider] - 3-5 Days
[2019-09-03] MEDS: 0.9% Normal Saline 1,000 ML 999 ML IV (16:03)
[2019-09-03] MEDS: Metoclopramide 10 MG/2 ML Vial IV (16:04)
[2019-09-03] MEDS: DiphenhydrAMINE 50 MG/ML Syringe 25 MG IV (16:04)
--- NOTE | 2019-09-03 16:28 | NURSING ---
COAGS HEMOLIZED. LAB TO PRINT NEW LABELS
[2019-09-03 18:00] LABS: International Normalized Ratio 2.4; Prothrombin Time (Protime)PT. 26.1 SECONDS (11.7-14.9)
== END 2019-09-03 19:14 | disposition home or self-care (01) ==
PROVIDERS: Emergency Provider Emergency Medicine; Family Provider Nurse Practitioner Family; PCP Nurse Practitioner Family
DX: G43.109 Migraine with aura, not intractable, without status migrainosus (principal); F17.200 Nicotine dependence, unspecified, uncomplicated; Z79.01 Long term (current) use of anticoagulants; Z82.49 Family history of ischemic heart disease and other diseases of the circulatory system; Z88.0 Allergy status to penicillin; Z88.2 Allergy status to sulfonamides; Z88.8 Allergy status to other drugs, medicaments and biological substances; Z90.49 Acquired absence of other specified parts of digestive tract; Z90.710 Acquired absence of both cervix and uterus
CPT/HCPCS: 36415; 85610; 96361; 96374; 96375; 99284; J7030; A4216

== ENCOUNTER 2019-09-07 16:00 | Emergency (ER) | payer MEDICARE, SELFPAY ==
[2019-09-07 16:02] VITALS: BP 119/81; PULSE 114; RESP 18; TEMP 36.4; O2SAT 98; BMI 30.6
--- NOTE | 2019-09-07 16:19 | CT_ITS ---
STUDY: CT BRAIN WITHOUT CONTRAST REASON FOR EXAM: Female, 43 years old. SEIZURE. PRIOR CVA. FACTOR V DISORDER RADIATION DOSAGE (If Supplied By Facility): CTDIvol = ( 44.99 ) mGy, DLP = ( 812.98 ) mGycm TECHNIQUE: Transaxial CT imaging of the brain was performed without administration of intravenous contrast material. Individualized dose optimization techniques were used for this CT. COMPARISON: Prior head CT exam of July 01, 2019 FINDINGS: Normal soft tissue structures. Normal calvarium. Stable relatively small area of encephalomalacia in the anterior right parietal lobe completely without change from prior exam. Otherwise normal ventricular structures. Normal white matter tracts of the cerebral hemispheres. Normal basal ganglia and thalami. Normal brainstem. Normal cerebellum. There is no intracranial hemorrhage. There are no findings of an acute ischemic infarction. Normal visualized paranasal sinuses. CT/Brain/Head without Contrast IMPRESSION: No acute intracranial findings or changes. Negative for hemorrhage, hematoma or mass density. Stable zone of encephalomalacia of the right parietal lobe. Electronically Signed: Padmini Cristina MD at 17:37 EST , Service support ,
[2019-09-07 17:54] LABS: Absolute Lymphocyte Count 2.04 X10^3/uL (0.83-4.51); Absolute Neutrophil Count 2.8 X10^3/uL (2.0-7.7); Basophil# 0.04 X10^3/uL; Basophil% 0.8 % (0-1); Eosinophil# 0.08 X10^3/uL; Eosinophils% 1.5 % (0-5); Hematocrit 44.2 % (37-47); Hemoglobin 15.1 g/dL (12.0-15.0); Lymphocyte # 2.04 X10^3/ul (4.0); Lymphocyte % 38.6 % (19-41); Mean Corp Hgb Conc 34.2 g/dL (32-36); Mean Corpuscular Hgb 32.4 pg (27.0-32.0); Mean Corpuscular Volume 94.8 fL (81-99); Mean Platelet Vol. 8.6 fl (6.2-12.0); Monocyte# 0.27 X10^3/uL; Monocyte% 5.1 % (0-10); NRBC Flagged by Analyzer 0 % (0-5); Neutrophil # 2.84 X10^3/uL (2.7-7.7); Neutrophil % 53.8 % (47-70); Platelet Count 242 K/mm3 (150-450); RBC Distribution Width SD 41.7 fl (35.1-43.9); Red Blood Count 4.66 M/mm3 (4.2-5.4); White Blood Count 5.3 K/mm3 (4.4-11.0)
[2019-09-07 18:03] LABS: International Normalized Ratio 1.8; Prothrombin Time (Protime)PT. 21.1 SECONDS (11.7-14.9)
[2019-09-07 18:06] LABS: Anion Gap 7 (5-15); BUN 13 mg/dL (7-18); BUN/Creat Ratio 13.8 RATIO (10-20); Chloride 110 mmol/L (98-107); Creatinine, Serum 0.94 mg/dL (0.55-1.02); EST Glomerular Filtration Rate 68 mL/min (>60); Est Glom Filt Rate - Afr Amer 83 mL/min (>60); Estimated Creatinine Clearance 63.18 ml/min; Glucose 98 mg/dL (74-106); Sodium Level 140 mmol/L (136-145)
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
--- NOTE | 2019-09-07 18:29 | ED.DEP ---
ED Disposition - Plan for ED Patient: Instructions: SEIZURE, Recurrent [Adult], HEADACHE, Unspecified Referrals: Rin Rivera, ALLEN-C [Primary Care Provider] - 3-5 Days Additional Instructions: see your Neurologist
== END 2019-09-07 18:52 | disposition home or self-care (01) ==
LOC: ED 16:23
PROVIDERS: Emergency Provider Emergency Medicine; Family Provider Nurse Practitioner Family; PCP Nurse Practitioner Family
DX: G40.909 Epilepsy, unspecified, not intractable, without status epilepticus (principal); R51 Headache; Z79.01 Long term (current) use of anticoagulants; Z86.711 Personal history of pulmonary embolism; Z86.73 Personal history of transient ischemic attack (TIA), and cerebral infarction without residual deficits; I10 Essential (primary) hypertension; E78.00 Pure hypercholesterolemia, unspecified; Z72.0 Tobacco use; F32.9 Major depressive disorder, single episode, unspecified; F41.9 Anxiety disorder, unspecified
CPT/HCPCS: 70450; 80048; 85025; 85610; 99283

== ENCOUNTER 2019-09-08 17:45 | Emergency (ER) | payer MEDICARE, SELFPAY ==
[2019-09-07 16:02] VITALS: BMI 30.6
[2019-09-08 17:45] VITALS: BP 102/74; PULSE 116; RESP 17; TEMP 36.4; O2SAT 99; BMI 29.2
--- NOTE | 2019-09-08 18:06 | ED.VIS.GEN ---
History of Present Illness Chief Complaint: Abd Pain Informant: Patient Onset: Today Context: Gradual Onset Current Severity: Moderate Maximum Severity: Moderate Narrative: Patient presents with epigastric abdominal pain and nausea that started today. She said she is felt nauseated since noon and has not eaten today. About an hour ago she got more severe epigastric pain. Has a history of pancreatitis and states this feels similar. She is currently on Coumadin for history of factor V Leiden and pulmonary embolism. She is a history of seizures and was reportedly seen in the ER yesterday for seizure. - Past Medical History (1) Anxiety Status: Chronic (2) Depression Status: Chronic (3) Factor V Leiden mutation Status: Chronic (4) History of pulmonary embolus (PE) Status: Chronic Comment: lifelong coumadin (5) Hyperlipidemia Status: Chronic (6) Hypertension Status: Chronic (7) Presence of IVC filter Status: Chronic (8) Seizure disorder Status: Chronic Past Medical History - Allergies and Home Meds Allergies/Adverse Reactions: Allergies gabapentin [From Neurontin] Allergy (Verified 09/08/19 17:45) Rash morphine Allergy (Verified 09/08/19 17:45) HYPOTENSION Penicillins Allergy (Verified 09/08/19 17:45) Rash Sulfa (Sulfonamide Antibiotics) Allergy (Verified 09/08/19 17:45) Rash PT STATES ONLY HAPPENED ONCE BUT HAS TAKEN SINCE W/ NO PROBLEM Primary Care Physician: Rin Rivera, ANALYSIS SPECIALIST-C [Primary Care Provider] - Prior records reviewed: Yes Surgical History: appendectomy, cholecystectomy, hysterectomy, - - x2, hysterectomy, cholecystectomy, appendectomy, tonsillectomy and adenectomy, [place] filter placed. Smoking Status: Former smoker - Family History Paternal Family History: Reports: Hypertension, - Maternal Family History: Reports: Unknown Review of Systems General: Denies: Chills, Fever Eyes: Denies: Visual changes - bilaterally ENT: Denies: Bilateral ear pain Cardiovascular: Denies: Chest pain Respiratory: Denies: Dyspnea, Cough Gastrointestinal: Reports: Abdominal pain, Nausea, Vomiting, Diarrhea Genitourinary: Denies: Dysuria Skin: Denies: Rash Neurological: Denies: Headache Hematologic: Denies: Easy bruising Allergy: Denies: Uticaria Physical Exam Vital Signs/Narrative: Vital Signs Temp Pulse Resp BP Pulse Ox 09/08/19 17:45 97.5 F L 116 H 17 102/74 99 Inital Vital Signs reviewed: Yes General: Well nourished, Well developed Head: Normocephalic ENT: Moist mucous membranes Neck: Supple Cardiovascular: Regular rate, Regular rhythm Respiratory: No distress, CTA bilaterally Abdomen: Soft, Tender - Epigastric tenderness to palpation., Hypoactive bowel sounds. Negative for: Guarding, Rebound tenderness Extremities: Nontender Skin: Normal color Neurological: Alert, Oriented x3 Psychological: - - Anxious Diagnostic/Tx/Re-eval Laboratory Results 09/08/19 09/08/19 09/08/19 18:45 18:45 18:45 WBC 7.6 RBC 4.44 Hgb 14.4 Hct 41.3 MCV 93.0 MCH 32.4 H MCHC 34.9 RDW Std Deviation 40.3 RDW Coeff of Megan 11.8 Plt Count 223 MPV 8.5 Immature Gran % (Auto) 0.300 Neut % (Auto) 60.4 Lymph % (Auto) 31.9 [place] % (Auto) 6.1 Eos % (Auto) 0.9 Baso % (Auto) 0.4 Absolute Neuts (auto) 4.6 Absolute Lymphs (auto) 2.41 Nucleated RBC % 0 PT 24.7 H INR 2.2 Sodium 139 Potassium 3.5 Chloride 110 H Carbon Dioxide 21.0 Anion Gap 8 BUN 12 Creatinine 0.90 Estim Creat Clear Calc 65.99 Est GFR (MDRD) Af Amer 88 Est GFR (MDRD) Non-Af 72 BUN/Creatinine Ratio 13.4 Glucose 117 H Calcium 8.1 L Total Bilirubin 0.10 L Direct Bilirubin < 0.05 AST 47 H ALT 91 H Alkaline Phosphatase 119 H Total Protein 7.2 Albumin 4.1 Globulin 3.1 Lipase 92 - Medical Decision Making Patient was given 0.5 mg Dilaudid, Zofran, Pepcid, and IV fluids. As advised by nursing that she was asking for something further for pain just as her labs returned. Labs are unremarkable. I discussed this with her at bedside. She will be given Bentyl and Zofran for home along with Prilosec. She is to follow-up with her physician in the next 5 to 7 days. ED Disposition - Plan for ED Patient: Disposition: Home or Assisted Living Diagnosis: Epigastric pain Instructions: EPIGASTRIC PAIN (Uncertain cause) Prescriptions: Dicyclomine HCl [Bentyl] 20 mg PO TIDAC #20 cap Transmission Status: Pending to [facility] Omeprazole [Prilosec] 20 mg PO DAILY #30 cap Transmission Status: Pending to [facility] Ondansetron [Zofran Odt] 4 mg PO Q8H PRN PRN #10 tab PRN Reason: Nausea Transmission Status: Pending to [facility] Referrals: Rin Rivera NP-C [Primary Care Provider] - 5-7 Days
[2019-09-08] MEDS: Ondansetron 4 MG/2 ML Vial IV (18:53)
[2019-09-08] MEDS: 0.9% Normal Saline 1,000 ML 1000 ML IV (18:53)
[2019-09-08] MEDS: HYDROmorphone 1 MG/ML Syringe 0.5 MG IV (18:53)
[2019-09-08] MEDS: Famotidine 200 MG/20 ML MDV 20 MG in 0.9% Normal Saline (Pres. free 8 ML 300 MG IV (18:55)
[2019-09-08 18:56] VITALS: BP 93/78; PULSE 101; RESP 18; O2SAT 95
[2019-09-08 18:57] LABS: Absolute Lymphocyte Count 2.41 X10^3/uL (0.83-4.51); Absolute Neutrophil Count 4.6 X10^3/uL (2.0-7.7); Basophil# 0.03 X10^3/uL; Basophil% 0.4 % (0-1); Eosinophil# 0.07 X10^3/uL; Eosinophils% 0.9 % (0-5); Hematocrit 41.3 % (37-47); Hemoglobin 14.4 g/dL (12.0-15.0); Lymphocyte # 2.41 X10^3/ul (4.0); Lymphocyte % 31.9 % (19-41); Mean Corp Hgb Conc 34.9 g/dL (32-36); Mean Corpuscular Hgb 32.4 pg (27.0-32.0); Mean Platelet Vol. 8.5 fl (6.2-12.0); Monocyte# 0.46 X10^3/uL; Monocyte% 6.1 % (0-10); NRBC Flagged by Analyzer 0 % (0-5); Neutrophil # 4.57 X10^3/uL (2.7-7.7); Neutrophil % 60.4 % (47-70); Platelet Count 223 K/mm3 (150-450); RBC Distribution Width CV 11.8 % (11.6-14.6); RBC Distribution Width SD 40.3 fl (35.1-43.9); Red Blood Count 4.44 M/mm3 (4.2-5.4); White Blood Count 7.6 K/mm3 (4.4-11.0)
[2019-09-08 19:04] LABS: International Normalized Ratio 2.2; Prothrombin Time (Protime)PT. 24.7 SECONDS (11.7-14.9)
[2019-09-08 19:25] LABS: AST(SGOT) 47 U/L (15-37); Alanine Aminotransfer ALT/SGPT 91 U/L (13-56); Albumin, Serum 4.1 g/dL (3.2-5.0); Alkaline Phosphatase 119 U/L (45-117); Anion Gap 8 (5-15); BUN 12 mg/dL (7-18); BUN/Creat Ratio 13.4 RATIO (10-20); Bilirubin, Direct < 0.05 mg/dL (0.00-0.30); Calcium,Total 8.1 mg/dL (8.5-10.1); Chloride 110 mmol/L (98-107); EST Glomerular Filtration Rate 72 mL/min (>60); Est Glom Filt Rate - Afr Amer 88 mL/min (>60); Estimated Creatinine Clearance 65.99 ml/min; Globulin 3.1 g/dL (2.2-4.2); Glucose 117 mg/dL (74-106); Lipase 92 U/L (73-393); Potassium 3.5 mmol/L (3.5-5.1); Protein, Total 7.2 g/dL (6.4-8.2); Sodium Level 139 mmol/L (136-145)
[2019-09-08] MEDS: Dicyclomine 20 MG/2 ML Vial IM (20:00)
[2019-09-08 20:03] VITALS: BP 101/72
== END 2019-09-08 20:12 | disposition home or self-care (01) ==
PROVIDERS: Emergency Provider Emergency Medicine; Family Provider Nurse Practitioner Family; PCP Nurse Practitioner Family
DX: R10.13 Epigastric pain (principal); R11.2 Nausea with vomiting, unspecified; R19.7 Diarrhea, unspecified; F41.9 Anxiety disorder, unspecified; F32.9 Major depressive disorder, single episode, unspecified; D68.51 Activated protein C resistance; I10 Essential (primary) hypertension; G40.909 Epilepsy, unspecified, not intractable, without status epilepticus; Z86.711 Personal history of pulmonary embolism; Z87.19 Personal history of other diseases of the digestive system; Z90.49 Acquired absence of other specified parts of digestive tract; Z95.828 Presence of other vascular implants and grafts; Z79.01 Long term (current) use of anticoagulants; Z79.899 Other long term (current) drug therapy; Z87.891 Personal history of nicotine dependence
CPT/HCPCS: 80048; 80076; 83690; 85025; 85610; 96361; 96372; 96374; 96375; 99285; A4216; J2405; J3490

== ENCOUNTER 2019-09-09 16:12 | Emergency (ER) | payer MEDICARE, SELFPAY ==
[2019-09-08 17:45] VITALS: BMI 29.2
[2019-09-09 16:13] VITALS: BP 112/85; PULSE 87; RESP 18; TEMP 36.2; O2SAT 100; BMI 30.4
--- NOTE | 2019-09-09 16:26 | ED.VISSUMM ---
- ER Visit Summary Date of Service: 09/09/19 Chief Complaint: Abdominal pain History of Present Illness: The patient is a 43 F who goes to [facility] [place]. She reports that she has abdominal pain that started yesterday. Says sharp pain is 9-10 at worst and 7-10 currently. Is worsened by nothing relieved by nothing. She is had nausea without vomiting. No diarrhea. Her last bowel was yesterday. Normal hematochezia. No dysuria or frequency. She denies any fever or chills. No chest pain or shortness of breath. Review of systems is otherwise negative. Physical Examination: Vitals: Stable. Afebrile. General: Well-nourished and well-developed. Head: Normocephalic atraumatic. Neck: Supple, no lymphadenopathy. No JVD. Nontender. Cardiovascular: Regular rate and rhythm. No murmurs. Respiratory: No respiratory distress. Clear to auscultation bilaterally. Abdominal: Soft, moderate epigastric and right upper quadrant tenderness to palpation, nondistended, normal bowel sounds. No guarding, rebound, or peritoneal signs. Back: Nontender. Extremities: Nontender, no edema. Skin: Normal color, no rash. Neurologic: Alert and oriented ?3. Cranial nerves II through XII are intact. Normal strength and sensation. Psych: Depressed affect. Test Results: CBC is remarkable for a white count of 2.5 with segmented neutrophils of 33 and lymphocytes of 53. Chem-7 is more for chloride 115 CO2 of 20. LFTs marked for an alk phos of 218, ALT of 1219, AST of 991. Lipase is normal at 316. Tylenol level is 24.3. Talk screen is negative. Emergency Department Course and Treatment: Patient was initially given Zofran IV and Bentyl IM. When her LFTs returned she was given a dose of fentanyl IV. She had a hepatitis panel sent. Treatment Plan: At this time I do not think that giving the patient any other opiate-based medications in the emergency department is indicated or in her best interest. She does have a history of addiction to opiates. She will be discharged instructions to follow-up with her primary care physician in 2 days to get the results of her hepatitis panel. She will be given Zofran at home for her nausea. She already has Bentyl at home. Disposition: To home in improved and stable condition. Impression: 1. Hepatitis, uncertain cause. This note was generated with [employer] dictation software. It may contain incorrect words, spelling, and punctuation that were not noted in review of the chart prior to signing ED Disposition - Plan for ED Patient: Disposition: Home or Assisted Living Instructions: HEPATITIS, Cause Unknown (test pending) Prescriptions: Ondansetron [Zofran Odt] 4 mg PO Q8H PRN PRN #10 tab PRN Reason: Nausea Prescription Printed Referrals: Rin Rivera NP-C [Primary Care Provider] - 2 Days
[2019-09-09 17:23] LABS: Absolute Neutrophil Count 0.8 X10^3/uL (2.0-7.7); Basophil# 0.02 X10^3/uL; Basophil% 0.8 % (0-1); Eosinophil# 0.09 X10^3/uL; Eosinophils% 3.7 % (0-5); Hematocrit 42.3 % (37-47); Hemoglobin 14.3 g/dL (12.0-15.0); Lymphocyte % 52.8 % (19-41); Mean Corp Hgb Conc 33.8 g/dL (32-36); Mean Corpuscular Hgb 32.5 pg (27.0-32.0); Mean Corpuscular Volume 96.1 fL (81-99); Mean Platelet Vol. 8.3 fl (6.2-12.0); Monocyte# 0.22 X10^3/uL; Monocyte% 8.9 % (0-10); NRBC Flagged by Analyzer 0 % (0-5); Neutrophil # 0.82 X10^3/uL (2.7-7.7); Neutrophil % 33.4 % (47-70); POSITIVE DIFFERENTIAL YES; Platelet Count 176 K/mm3 (150-450); RBC Distribution Width CV 11.9 % (11.6-14.6); RBC Distribution Width SD 42.2 fl (35.1-43.9); White Blood Count 2.5 K/mm3 (4.4-11.0)
[2019-09-09] MEDS: 0.9% Normal Saline 1,000 ML 1000 ML IV (17:24)
[2019-09-09] MEDS: Ondansetron 4 MG/2 ML Vial IV (17:24)
[2019-09-09] MEDS: Dicyclomine 20 MG/2 ML Vial IM (17:26)
[2019-09-09 17:34] LABS: Differential Indicated SCAN CRITERIA MET
[2019-09-09 17:44] LABS: ALB/GLOB Ratio 1.3 RATIO (0.9-2.4); AST(SGOT) 991 U/L (15-37); Alanine Aminotransfer ALT/SGPT 1219 U/L (13-56); Albumin, Serum 3.8 g/dL (3.2-5.0); Alkaline Phosphatase 218 U/L (45-117); Anion Gap 6 (5-15); BUN 13 mg/dL (7-18); BUN/Creat Ratio 15.9 RATIO (10-20); Calcium,Total 8.5 mg/dL (8.5-10.1); Chloride 115 mmol/L (98-107); Creatinine, Serum 0.82 mg/dL (0.55-1.02); EST Glomerular Filtration Rate 81 mL/min (>60); Est Glom Filt Rate - Afr Amer 98 mL/min (>60); Estimated Creatinine Clearance 72.42 ml/min; Glucose 104 mg/dL (74-106); Lipase 316 U/L (73-393); Potassium 3.6 mmol/L (3.5-5.1); Protein, Total 6.8 g/dL (6.4-8.2); Sodium Level 141 mmol/L (136-145)
[2019-09-09 17:59] LABS: Differential Comment SCANNED
[2019-09-09 18:55] VITALS: BP 100/78; PULSE 76; RESP 15; O2SAT 100
[2019-09-09] MEDS: fentaNYL 100 MCG/2 ML Ampul 50 MCG IV (19:24)
[2019-09-09 19:50] LABS: Acetaminophen (Tylenol) Level 24.3 ug/mL (10.0-30.0)
[2019-09-09 20:57] LABS: Amphetamine Urine VISTA NEGATIVE (<1000 ng/mL); Barbiturate Urine VISTA NEGATIVE (< 200 ng/mL); Benzodiazepine Urine VISTA NEGATIVE (< 200 ng/mL); Cocaine Urine VISTA NEGATIVE (< 300 ng/mL); Ecstacy Urine VISTA NEGATIVE (< 500 ng/mL); Methadone Urine VISTA NEGATIVE (< 300 ng/mL); PCP Urine VISTA NEGATIVE (< 25 ng/mL); THC Urine VISTA NEGATIVE (< 50 ng/mL); Vista UDS pH Range 6
[2019-09-09 21:09] VITALS: BP 98/65; PULSE 88; RESP 16; O2SAT 96
[2019-09-11 08:08] LABS: HEPATITIS B SURFACE AG Negative (Negative); Hepatitis A IgM Antibody Negative (Negative); Hepatitis B Core AB IgM Negative (Negative)
[2019-09-11 14:36] LABS: Hep C Antibodies <0.1 s/co ratio (0.0-0.9)
== END 2019-09-09 21:10 | disposition home or self-care (01) ==
LOC: ED 16:33
PROVIDERS: Emergency Provider Emergency Medicine; Family Provider Nurse Practitioner Family; PCP Nurse Practitioner Family
DX: K75.9 Inflammatory liver disease, unspecified (principal); R11.0 Nausea; F32.9 Major depressive disorder, single episode, unspecified; F41.9 Anxiety disorder, unspecified; F11.21 Opioid dependence, in remission; F17.290 Nicotine dependence, other tobacco product, uncomplicated; Z79.01 Long term (current) use of anticoagulants; Z79.899 Other long term (current) drug therapy; Z86.718 Personal history of other venous thrombosis and embolism; Z86.711 Personal history of pulmonary embolism; Z86.73 Personal history of transient ischemic attack (TIA), and cerebral infarction without residual deficits
CPT/HCPCS: 80053; 80074; 80307; 80329; 83690; 85025; 96361; 96372; 96374; 96375; 99285; J7030; A4216; G0480; J2405

== ENCOUNTER 2019-10-05 00:23 | Emergency (ER) | payer MEDICARE, SELFPAY ==
[2019-10-05 00:24] VITALS: BP 118/74; PULSE 125; RESP 16; TEMP 36.8; O2SAT 98; BMI 29.3
--- NOTE | 2019-10-05 00:45 | ED.DCSUM_ITS ---
History of Present Illness Chief Complaint: Abd Pain Narrative: Patient is a 43-year-old female who presents with abdominal pain. This began about 1 hour ago. Pain is located in the upper abdomen and right upper quadrant. She does have a history of alcohol induced pancreatitis. She states she has had some sinus congestion so had a hot Toddy about 3 to 4 hours ago. She reports nausea without vomiting. She did have diarrhea yesterday. She was seen last month for what she thought was pancreatitis but lipase was normal. She did have elevation of her liver enzymes at that time. Patient has had a prior cholecystectomy. Past Medical History - Allergies and Home Meds Allergies/Adverse Reactions: Allergies gabapentin [From Neurontin] Allergy (Verified 10/05/19 00:28) Rash morphine Allergy (Verified 10/05/19 00:28) HYPOTENSION Penicillins Allergy (Verified 10/05/19 00:28) Rash Sulfa (Sulfonamide Antibiotics) Allergy (Verified 10/05/19 00:28) Rash PT STATES ONLY HAPPENED ONCE BUT HAS TAKEN SINCE W/ NO PROBLEM Primary Care Physician: Rin Rivera, NUTRITION AIDES TEACHER-C [Primary Care Provider] - Past Medical History: - - Seizure disorder, factor V Leiden with history of pulm onary embolism on warfarin, history of alcohol induced pancreatitis Surgical History: appendectomy, cholecystectomy, hysterectomy, - - x2, hysterectomy, cholecystectomy, appendectomy, tonsillectomy and adenectomy, [place] filter placed. Smoking Status: Current every day smoker - Family History Paternal Family History: Reports: Hypertension, - Maternal Family History: Reports: Unknown Review of Systems All systems negative except as indicated General: Denies: Fever Eyes: Denies: Visual changes - bilaterally ENT: Denies: Bilateral ear pain Cardiovascular: Denies: Chest pain Respiratory: Denies: Dyspnea Gastrointestinal: Reports: Abdominal pain, Nausea, Diarrhea. Denies: Vomiting Skin: Denies: Rash Neurological: Denies: Headache Allergy: Denies: Uticaria Physical Exam Vital Signs/Narrative: Vital Signs Temp Pulse Resp BP Pulse Ox 10/05/19 00:24 98.2 F 125 H 16 118/74 98 Inital Vital Signs reviewed: Yes General: Well nourished Head: Normocephalic Eyes: EOMI ENT: Moist mucous membranes Neck: Supple Cardiovascular: - - Heart is regular tachycardia without murmur, gallop, rub Respiratory: No distress, CTA bilaterally Abdomen: Soft, - - Mild epigastric and right upper quadrant tenderness without guarding without rebound, nondistended Skin: Normal color Neurological: Alert Psychological: Normal affect Diagnostic/Tx/Re-eval Laboratory Results 10/05/19 10/05/19 01:05 01:05 WBC 5.8 RBC 4.36 Hgb 14.3 Hct 41.1 MCV 94.3 MCH 32.8 H MCHC 34.8 RDW Std Deviation 38.4 RDW Coeff of Megan 11.2 L Plt Count 205 MPV 8.4 Immature Gran % (Auto) 0.300 Neut % (Auto) 54.0 Lymph % (Auto) 37.9 Grimes % (Auto) 5.9 Eos % (Auto) 1.2 Baso % (Auto) 0.7 Absolute Neuts (auto) 3.1 Absolute Lymphs (auto) 2.18 Nucleated RBC % 0 Sodium 140 Potassium 3.6 Chloride 113 H Carbon Dioxide 19.0 L Anion Gap 8 BUN 10 Creatinine 0.96 Estim Creat Clear Calc 64.58 Est GFR (MDRD) Af Amer 80 Est GFR (MDRD) Non-Af 67 BUN/Creatinine Ratio 10.4 Glucose 156 H Calcium 8.7 Total Bilirubin 0.10 L AST 38 H ALT 65 H Alkaline Phosphatase 103 Total Protein 7.1 Albumin 3.8 Globulin 3.3 Albumin/Globulin Ratio 1.2 Lipase 88 - Medical Decision Making Patient was symptomatically treated with IV fluids, Dilaudid, Zofran. She has improved on reevaluation. Laboratory studies as above essentially unremarkable. Patient has minimal elevation of LFTs which are significantly improved from labs last month. Her lipase is normal. She does not have evidence of acute pancreatitis or other acute life-threatening or surgical pathology. Patient was advised to follow-up with her primary care physician and actually already has an appointment scheduled. She understands to return for new or worsening symptoms. All questions answered at bedside and patient agreeable to this plan. Patient discharged. ED Disposition - Plan for ED Patient: Disposition: Home or Assisted Living Diagnosis: Abdominal pain Instructions: ABDOMINAL PAIN, Unknown Cause, (Female) Referrals: Rin Rivera, ALLEN-C [Primary Care Provider] -
[2019-10-05] MEDS: 0.9% Normal Saline 1,000 ML 1000 ML IV (01:02)
[2019-10-05] MEDS: Ondansetron 4 MG/2 ML Vial IV (01:05)
[2019-10-05] MEDS: HYDROmorphone 1 MG/ML Syringe IV (01:05)
[2019-10-05 01:09] LABS: Absolute Lymphocyte Count 2.18 X10^3/uL (0.83-4.51); Absolute Neutrophil Count 3.1 X10^3/uL (2.0-7.7); Basophil# 0.04 X10^3/uL; Basophil% 0.7 % (0-1); Eosinophil# 0.07 X10^3/uL; Eosinophils% 1.2 % (0-5); Hematocrit 41.1 % (37-47); Hemoglobin 14.3 g/dL (12.0-15.0); Lymphocyte # 2.18 X10^3/ul (4.0); Lymphocyte % 37.9 % (19-41); Mean Corp Hgb Conc 34.8 g/dL (32-36); Mean Corpuscular Hgb 32.8 pg (27.0-32.0); Mean Corpuscular Volume 94.3 fL (81-99); Mean Platelet Vol. 8.4 fl (6.2-12.0); Monocyte# 0.34 X10^3/uL; Monocyte% 5.9 % (0-10); NRBC Flagged by Analyzer 0 % (0-5); Platelet Count 205 K/mm3 (150-450); RBC Distribution Width CV 11.2 % (11.6-14.6); RBC Distribution Width SD 38.4 fl (35.1-43.9); Red Blood Count 4.36 M/mm3 (4.2-5.4); White Blood Count 5.8 K/mm3 (4.4-11.0)
[2019-10-05 01:27] LABS: ALB/GLOB Ratio 1.2 RATIO (0.9-2.4); AST(SGOT) 38 U/L (15-37); Alanine Aminotransfer ALT/SGPT 65 U/L (13-56); Albumin, Serum 3.8 g/dL (3.2-5.0); Alkaline Phosphatase 103 U/L (45-117); Anion Gap 8 (5-15); BUN 10 mg/dL (7-18); BUN/Creat Ratio 10.4 RATIO (10-20); Calcium,Total 8.7 mg/dL (8.5-10.1); Chloride 113 mmol/L (98-107); Creatinine, Serum 0.96 mg/dL (0.55-1.02); EST Glomerular Filtration Rate 67 mL/min (>60); Est Glom Filt Rate - Afr Amer 80 mL/min (>60); Estimated Creatinine Clearance 64.58 ml/min; Globulin 3.3 g/dL (2.2-4.2); Glucose 156 mg/dL (74-106); Lipase 88 U/L (73-393); Potassium 3.6 mmol/L (3.5-5.1); Protein, Total 7.1 g/dL (6.4-8.2); Sodium Level 140 mmol/L (136-145)
[2019-10-05 01:38] VITALS: BP 116/80; PULSE 78; RESP 16; O2SAT 98
--- NOTE | 2019-10-05 19:00 | CM.ED ---
SOCIAL WORK CALL TO PATIENT TO UPDATE ON ACTIVE AND APPROVED ED CARE PLAN. PATIENT VERBALIZED UNDERSTANDING. COPY OF ED CARE PLAN TO BE MAILED TO PATIENT. ADDRESS VERIFIED WITH PATIENT. Joyce MANZANO MSW, MANAGER GREEN.
== END 2019-10-05 01:39 | disposition home or self-care (01) ==
PROVIDERS: Emergency Provider Emergency Medicine; PCP Nurse Practitioner Family; Referring Provider Nurse Practitioner Family
DX: R10.9 Unspecified abdominal pain (principal); G40.909 Epilepsy, unspecified, not intractable, without status epilepticus; D68.51 Activated protein C resistance; F17.200 Nicotine dependence, unspecified, uncomplicated; Z79.01 Long term (current) use of anticoagulants; Z82.49 Family history of ischemic heart disease and other diseases of the circulatory system; Z86.711 Personal history of pulmonary embolism; Z88.0 Allergy status to penicillin; Z88.2 Allergy status to sulfonamides; Z88.8 Allergy status to other drugs, medicaments and biological substances; Z90.49 Acquired absence of other specified parts of digestive tract; Z90.710 Acquired absence of both cervix and uterus
CPT/HCPCS: 80053; 83690; 85025; 99283; J7030; A4216; J2405

== ENCOUNTER 2019-10-07 00:19 | Emergency (ER) | payer MEDICARE, MEDICAID, SELFPAY ==
[2019-10-07 00:20] VITALS: BP 132/87; PULSE 77; RESP 15; TEMP 36.5; O2SAT 98; BMI 29.0
--- NOTE | 2019-10-07 00:35 | CT_ITS ---
STUDY: CT BRAIN WITHOUT CONTRAST REASON FOR EXAM: Female, 43 years old. HEADACHE POST SEIZURE -- HX:HTN,SEIZURES,CVA,FACTOR V LEIDEN RADIATION DOSAGE (If Supplied By Facility): CTDIvol = ( 44.99 ) mGy, DLP = ( 779.24 ) mGycm TECHNIQUE: Transaxial CT imaging of the brain was performed without administration of intravenous contrast material. Individualized dose optimization techniques were used for this CT. COMPARISON: 09/07/2019. FINDINGS: Normal soft tissue structures. Normal calvarium. Normal size ventricles and extra-axial spaces for the patient''s age. Focal area of encephalomalacia involving the right parietal lobe. Otherwise normal white matter tracts of the cerebral hemispheres. Normal basal ganglia and thalami. Normal brainstem. Normal cerebellum. There is no intracranial hemorrhage. There are no findings of an acute ischemic infarction. Normal visualized paranasal sinuses. CT/Brain/Head without Contrast IMPRESSION: Stable encephalomalacia of the right parietal lobe, otherwise normal unenhanced CT scan of the brain. Electronically Signed: Shilpa Clark MD at 2:08 EST , Service support ,
--- NOTE | 2019-10-07 00:36 | ED.VIS.GEN ---
History of Present Illness Chief Complaint: Seizure Narrative: 1 to 2 hours prior to arrival, patient had a seizure that lasted 1 minute or less. She states she was awake for it, it involved her left arm and her head, and this is typical of prior breakthrough seizures that she is treated for at the [facility] epilepsy center with Keppra and Topamax. She has missed no doses of her medications that she takes twice daily, and she has already taken her nighttime doses tonight. She has had no recent sleep deprivation, head injury, or illness in the last couple days. She was seen here for abdominal pain that she thought maybe was pancreatitis 5 or 6 days ago, but those symptoms have been resolved. No dysuria or symptoms of urine infection. She had an aura prior to the seizure, her eyes were twitching, she states that is common as well and she knew she was going to have one. She has had a headache since the seizure occurred, which is also common. 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 Since the seizure she has been able to ambulate but she feels a little weak and shaky. She took some Reglan earlier but still has a headache. She also took an Ativan after she had the auras. She is asking for more Ativan right now. She is also asking for something for her headache and nausea. - Past Medical History (1) Acute pancreatitis Status: Resolved (2) Seizure disorder Status: Chronic (3) History of drug abuse Status: Chronic (4) History of alcohol abuse Status: Chronic (5) Anxiety Status: Chronic (6) Depression Status: Chronic (7) History of pulmonary embolus (PE) Status: Chronic Comment: lifelong coumadin (8) Factor V Leiden mutation Status: Chronic (9) Hyperlipidemia Status: Chronic (10) Presence of IVC filter Status: Chronic (11) Hypertension Status: Chronic Past Medical History - Allergies and Home Meds Allergies/Adverse Reactions: Allergies gabapentin [From Neurontin] Allergy (Verified 10/07/19 00:21) Rash morphine Allergy (Verified 10/07/19 00:21) HYPOTENSION Penicillins Allergy (Verified 10/07/19 00:21) Rash Sulfa (Sulfonamide Antibiotics) Allergy (Verified 10/07/19 00:21) Rash PT STATES ONLY HAPPENED ONCE BUT HAS TAKEN SINCE W/ NO PROBLEM Primary Care Physician: Rin Rivera, ALLEN-C [Primary Care Provider] - Surgical History: appendectomy, cholecystectomy, hysterectomy, - - x2, hysterectomy, cholecystectomy, appendectomy, tonsillectomy and adenectomy, Shaq filter placed. Lives: Alone Smoking Status: Current every day smoker - Family History Paternal Family History: Reports: Hypertension, - Maternal Family History: Reports: Unknown Review of Systems General: Reports: Malaise. Denies: Chills, Fever, Sweats Eyes: Reports: Blurred Vision - bilaterally - Resolved now. Denies: Diplopia ENT: Denies: Bilateral ear pain, Rhinorrhea, Sore throat Cardiovascular: Denies: Chest pain, Palpitations Respiratory: Denies: Dyspnea, Cough, Dyspnea on exertion Gastrointestinal: Reports: Nausea. Denies: Abdominal pain, Vomiting, Diarrhea, Melena, Hematochezia Genitourinary: Denies: Dysuria, Hematuria, Frequency Musculoskeletal: Denies: Neck pain, Back pain, Extremity Pain Skin: Denies: Rash, Wounds Neurological: Reports: Headache, - - See HPI. Denies: Weakness, Numbness Physical Exam Vital Signs/Narrative: Vital Signs Temp Pulse Resp BP Pulse Ox 10/07/19 00:20 97.7 F L 77 15 132/87 H 98 Inital Vital Signs reviewed: Yes General: Well nourished, Well developed, No Acute Distress Head: Normocephalic, Atraumatic Eyes: Perrl, EOMI ENT: Moist mucous membranes, No rhinorrhea Neck: Supple, Nontender, No lymphadenopathy Cardiovascular: Regular rate, Regular rhythm, No murmurs Respiratory: No distress, CTA bilaterally, Chest nontender Abdomen: Soft, Nontender, Nondistended, Normal bowel sounds Back: Nontender, Normal Inspection Extremities: Nontender, No edema Skin: Normal color, No rash, No Trauma Neurological: Alert, Oriented x3, Cranial nerves II-XII grossly intact, Normal Strength, Normal Sensation, Normal DTR Psychological: Normal Mood, - - Flat affect, sentences only with several words each Diagnostic/Tx/Re-eval Impressions Brain CT 10/07/19 00:35 IMPRESSION: Stable encephalomalacia of the right parietal lobe, otherwise normal unenhanced CT scan of the brain. Electronically Signed: Shilpa Mischiu, MD at 2:08 EST , Service support , 10/07/19 00:35 Brain/Head without Contrast [CT] Stat Laboratory Results 10/07/19 10/07/19 10/07/19 01:10 01:10 01:10 WBC 7.4 RBC 4.66 Hgb 15.0 Hct 43.0 MCV 92.3 MCH 32.2 H MCHC 34.9 RDW Std Deviation 38.0 RDW Coeff of Megan 11.3 L Plt Count 201 MPV 8.3 Immature Gran % (Auto) 0.300 Neut % (Auto) 59.0 Lymph % (Auto) 35.2 Jennings % (Auto) 4.3 Eos % (Auto) 0.7 Baso % (Auto) 0.5 Absolute Neuts (auto) 4.4 Absolute Lymphs (auto) 2.61 Nucleated RBC % 0 PT 25.0 H INR 2.3 Sodium 140 Potassium 3.4 L Chloride 110 H Carbon Dioxide 23.0 Anion Gap 7 BUN 9 Creatinine 0.91 Estim Creat Clear Calc 68.12 Est GFR (MDRD) Af Amer 86 Est GFR (MDRD) Non-Af 71 BUN/Creatinine Ratio 9.9 L Glucose 100 Calcium 9.2 - Medical Decision Making Patient was observed for almost 3 hours and had no further seizure activity. She had a headache and continue to ask for narcotics for it. She has a history of chronically recurrent pains, history of drug abuse, and she is asking for narcotic for headache which I do not think is appropriate which I told her. I gave her Phenergan she states that it helped her nausea but not her headache. She took Reglan prior to arrival. She is on Coumadin so she cannot have NSAIDs or Toradol. I offered her Tylenol and she states I cannot take that because I have some type of liver problem which I do not see in her records here. I put a call out to her epilepsy specialist at [facility] however the board of education secretary had to leave a message and we never got a call back, for dosing/medication recommendations. She is on Topamax 200 mg in the morning and 300 mg nightly. We will increase her to 300 twice daily and I advised that she continue her Keppra and follow-up with her neurologist. She is in agreement. ED Disposition - Plan for ED Patient: Disposition: Home or Assisted Living Diagnosis: Breakthrough seizure, Seizure disorder Instructions: SEIZURE, Recurrent [Adult] Prescriptions: Topiramate [Topamax] 3 cap PO BID #120 tab Prescription Printed Referrals: Rin Rivera, BACK ORDER CLERK-C [Primary Care Provider] - specialist, epilepsy [Other] (after the weekend -- call for further instructions with regards to your symptoms and medications)
[2019-10-07 01:13] VITALS: BP 106/78; PULSE 95; RESP 15; O2SAT 95
[2019-10-07] MEDS: proMETHazine 25 MG/ML Syringe 12.5 MG IV (01:15)
[2019-10-07 01:17] LABS: Absolute Lymphocyte Count 2.61 X10^3/uL (0.83-4.51); Absolute Neutrophil Count 4.4 X10^3/uL (2.0-7.7); Basophil# 0.04 X10^3/uL; Basophil% 0.5 % (0-1); Eosinophil# 0.05 X10^3/uL; Eosinophils% 0.7 % (0-5); Lymphocyte # 2.61 X10^3/ul (4.0); Lymphocyte % 35.2 % (19-41); Mean Corp Hgb Conc 34.9 g/dL (32-36); Mean Corpuscular Hgb 32.2 pg (27.0-32.0); Mean Corpuscular Volume 92.3 fL (81-99); Mean Platelet Vol. 8.3 fl (6.2-12.0); Monocyte# 0.32 X10^3/uL; Monocyte% 4.3 % (0-10); NRBC Flagged by Analyzer 0 % (0-5); Neutrophil # 4.38 X10^3/uL (2.7-7.7); Platelet Count 201 K/mm3 (150-450); RBC Distribution Width CV 11.3 % (11.6-14.6); Red Blood Count 4.66 M/mm3 (4.2-5.4); White Blood Count 7.4 K/mm3 (4.4-11.0)
[2019-10-07 01:25] LABS: International Normalized Ratio 2.3
[2019-10-07 01:31] LABS: Anion Gap 7 (5-15); BUN 9 mg/dL (7-18); BUN/Creat Ratio 9.9 RATIO (10-20); Calcium,Total 9.2 mg/dL (8.5-10.1); Chloride 110 mmol/L (98-107); Creatinine, Serum 0.91 mg/dL (0.55-1.02); EST Glomerular Filtration Rate 71 mL/min (>60); Est Glom Filt Rate - Afr Amer 86 mL/min (>60); Estimated Creatinine Clearance 68.12 ml/min; Glucose 100 mg/dL (74-106); Potassium 3.4 mmol/L (3.5-5.1); Sodium Level 140 mmol/L (136-145)
[2019-10-07] MEDS: Topiramate 100 MG Tablet PO (04:10)
[2019-10-07] MEDS: Metoclopramide 10 MG Tablet PO (04:10)
[2019-10-07 04:12] VITALS: BP 107/89; PULSE 90; RESP 16; RESP 18; O2SAT 100
--- NOTE | 2019-10-10 14:06 | CM.ED ---
SOCIAL WORK COPY OF ED CARE PLAN AND RESOURCES MAILED TO PATIENT VIA CERTIFIED MAIL. CALL TO CJ MILES NP'S OFFICE. FAX NUMBER OBTAINED AND COPY OF ED CARE PLAN AND LETTER TO SPORTS ATHLETIC TRAINER FAXED AT THIS TIME. Joyce MANZANO, RESEARCH TEST ENGINE OPERATOR, CHRISTMAS TREE GRADER.
== END 2019-10-07 04:19 | disposition home or self-care (01) ==
PROVIDERS: Emergency Provider Emergency Medicine; PCP Nurse Practitioner Family
DX: G40.909 Epilepsy, unspecified, not intractable, without status epilepticus (principal); F41.9 Anxiety disorder, unspecified; F32.9 Major depressive disorder, single episode, unspecified; D68.51 Activated protein C resistance; E78.5 Hyperlipidemia, unspecified; I10 Essential (primary) hypertension; F17.200 Nicotine dependence, unspecified, uncomplicated; G93.89 Other specified disorders of brain; Z79.01 Long term (current) use of anticoagulants; Z82.49 Family history of ischemic heart disease and other diseases of the circulatory system; Z86.711 Personal history of pulmonary embolism; Z86.73 Personal history of transient ischemic attack (TIA), and cerebral infarction without residual deficits; Z88.0 Allergy status to penicillin; Z88.2 Allergy status to sulfonamides; Z88.8 Allergy status to other drugs, medicaments and biological substances; Z90.49 Acquired absence of other specified parts of digestive tract; Z90.710 Acquired absence of both cervix and uterus
CPT/HCPCS: 70450; 80048; 85025; 85610; J7030; A4216

== ENCOUNTER 2019-10-07 15:19 | Emergency (ER) | payer MEDICARE, SELFPAY ==
[2019-10-07 00:20] VITALS: BMI 29.0
[2019-10-07 15:20] VITALS: BP 119/81; PULSE 111; RESP 18; TEMP 37.2; O2SAT 97; BMI 28.3
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
[2019-10-07] MEDS: Acetaminophen 500 MG Tablet 1000 MG PO (15:53)
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
[2019-10-07 18:26] LABS: Prothrombin Time Fingerstick 34.1 SEC (11.9-14.4)
== END 2019-10-07 18:39 | disposition home or self-care (01) ==
LOC: ED 15:54
PROVIDERS: Emergency Provider Emergency Medicine; PCP Nurse Practitioner Family
DX: S16.1XXA Strain of muscle, fascia and tendon at neck level, initial encounter (principal); S39.012A Strain of muscle, fascia and tendon of lower back, initial encounter; V43.52XA Car driver injured in collision with other type car in traffic accident, initial encounter; Y92.410 Unspecified street and highway as the place of occurrence of the external cause; R79.1 Abnormal coagulation profile; G40.909 Epilepsy, unspecified, not intractable, without status epilepticus; T45.515A Adverse effect of anticoagulants, initial encounter; Z79.01 Long term (current) use of anticoagulants; F11.10 Opioid abuse, uncomplicated; F32.9 Major depressive disorder, single episode, unspecified; F41.9 Anxiety disorder, unspecified; E78.5 Hyperlipidemia, unspecified; I10 Essential (primary) hypertension; F17.200 Nicotine dependence, unspecified, uncomplicated; G93.89 Other specified disorders of brain; Z82.49 Family history of ischemic heart disease and other diseases of the circulatory system; Z86.711 Personal history of pulmonary embolism; Z86.73 Personal history of transient ischemic attack (TIA), and cerebral infarction without residual deficits; Z88.0 Allergy status to penicillin; Z88.2 Allergy status to sulfonamides; Z88.8 Allergy status to other drugs, medicaments and biological substances
CPT/HCPCS: 36416; 70450; 72040; 72100; 73030; 80048; 85025; 85610; 96361; 96374; 96375; 99284; 99285; J7030; A4216

== ENCOUNTER → 2019-10-17 11:46 | Outpatient (CLI) | payer MEDICARE, SELFPAY ==
[2019-10-07 15:20] VITALS: BMI 28.3
[2019-10-17 12:22] LABS: International Normalized Ratio 2.3; Prothrombin Time (Protime)PT. 25.7 SECONDS (11.7-14.9)
[2019-10-17 12:43] LABS: ALB/GLOB Ratio 1.2 RATIO (0.9-2.4); AST(SGOT) 16 U/L (15-37); Alanine Aminotransfer ALT/SGPT 44 U/L (13-56); Albumin, Serum 3.8 g/dL (3.2-5.0); Alkaline Phosphatase 92 U/L (45-117); Anion Gap 5 (5-15); BUN 17 mg/dL (7-18); BUN/Creat Ratio 19.7 RATIO (10-20); Calcium,Total 8.8 mg/dL (8.5-10.1); Chloride 113 mmol/L (98-107); Creatinine, Serum 0.86 mg/dL (0.55-1.02); EST Glomerular Filtration Rate 76 mL/min (>60); Est Glom Filt Rate - Afr Amer 92 mL/min (>60); Globulin 3.3 g/dL (2.2-4.2); Glucose 97 mg/dL (74-106); Protein, Total 7.1 g/dL (6.4-8.2); Sodium Level 137 mmol/L (136-145)
== END ==
PROVIDERS: PCP Nurse Practitioner Family; Referring Provider Nurse Practitioner Family; Visit Provider Nurse Practitioner Family
DX: D68.9 Coagulation defect, unspecified (principal); R74.8 Abnormal levels of other serum enzymes
CPT/HCPCS: 36415; 80053; 85610

== ENCOUNTER 2019-10-28 21:38 | Emergency (ER) | payer MEDICARE, SELFPAY ==
[2019-10-28 21:39] VITALS: BP 119/76; PULSE 106; RESP 16; TEMP 36.2; O2SAT 99; BMI 29.2
--- NOTE | 2019-10-28 22:00 | ED.VISSUMM ---
- ER Visit Summary Date of Service: 10/28/19 Chief Complaint: Abdominal pain History of Present Illness: The patient is a 43 F who presents with abdominal pain that began approximate 1 hour prior to arrival. Patient describes her pain as sharp and cramping. Patient states her pain is localized to the epigastric area. Patient denies any radiation of the pain. Patient states nothing makes it better or worse. Patient admits to nausea but denies any vomiting or hematemesis. Patient denies any coffee-ground emesis. Patient denies any diarrhea, melena, or hematochezia. Patient denies any dysuria or hematuria. Patient states she has a history of pancreatitis and is concerned that this may be a recurrence of that. Physical Examination: Vital signs are stable. Patient is afebrile. Patient is in no acute distress. Oral mucosa is pink and moist. Neck is supple. Trachea is midline. There is no JVD. Heart was regular rate and rhythm. Lungs are clear and equal bilaterally. Abdomen is soft. Bowel sounds are normal. There is some mild tenderness in the epigastric area. There is no rebound or guarding noted. Cranial nerves II through XII are intact. There are no focal motor or sensory deficits noted. Test Results: CBC, comprehensive metabolic profile, and lipase were obtained and were all within normal limits. Emergency Department Course and Treatment: Patient was given IV fluids and Zofran. Patient was feeling better on reevaluation. Patient was also given a GI cocktail. Patient was instructed to follow-up with her primary care physician in 5 to 7 days. Patient understood and was agreeable with the plan. All questions were answered. Disposition: Discharge home Impression: Epigastric abdominal pain This note was generated with [employer] dictation software. It may contain incorrect words, spelling, and punctuation that were not noted in review of the chart prior to signing ED Disposition - Plan for ED Patient: Disposition: Home or Assisted Living Diagnosis: Abdominal pain Instructions: ABDOMINAL PAIN, Unknown Cause, (Female) Referrals: Rin Rivera NP-C [Primary Care Provider] - 3-5 Days
[2019-10-28] MEDS: Ondansetron ODT 4 MG Tablet PO (23:24)
[2019-10-28 23:35] LABS: Absolute Lymphocyte Count 1.58 X10^3/uL (0.83-4.51); Absolute Neutrophil Count 5.8 X10^3/uL (2.0-7.7); Basophil# 0.04 X10^3/uL; Basophil% 0.5 % (0-1); Eosinophil# 0.06 X10^3/uL; Eosinophils% 0.8 % (0-5); Hematocrit 39.8 % (37-47); Hemoglobin 13.8 g/dL (12.0-15.0); Lymphocyte # 1.58 X10^3/ul (4.0); Lymphocyte % 19.8 % (19-41); Mean Corp Hgb Conc 34.7 g/dL (32-36); Mean Corpuscular Hgb 32.3 pg (27.0-32.0); Mean Corpuscular Volume 93.2 fL (81-99); Mean Platelet Vol. 8.4 fl (6.2-12.0); Monocyte# 0.47 X10^3/uL; Monocyte% 5.9 % (0-10); NRBC Flagged by Analyzer 0 % (0-5); Neutrophil # 5.83 X10^3/uL (2.7-7.7); Neutrophil % 72.9 % (47-70); Platelet Count 198 K/mm3 (150-450); RBC Distribution Width CV 11.7 % (11.6-14.6); RBC Distribution Width SD 39.9 fl (35.1-43.9); Red Blood Count 4.27 M/mm3 (4.2-5.4)
[2019-10-28 23:53] LABS: ALB/GLOB Ratio 1.3 RATIO (0.9-2.4); AST(SGOT) 54 U/L (15-37); Alanine Aminotransfer ALT/SGPT 64 U/L (13-56); Albumin, Serum 3.9 g/dL (3.2-5.0); Alkaline Phosphatase 90 U/L (45-117); Anion Gap 7 (5-15); BUN 19 mg/dL (7-18); BUN/Creat Ratio 22.1 RATIO (10-20); Calcium,Total 8.5 mg/dL (8.5-10.1); Chloride 111 mmol/L (98-107); Creatinine, Serum 0.86 mg/dL (0.55-1.02); EST Glomerular Filtration Rate 76 mL/min (>60); Est Glom Filt Rate - Afr Amer 92 mL/min (>60); Estimated Creatinine Clearance 69.05 ml/min; Globulin 3.1 g/dL (2.2-4.2); Glucose 100 mg/dL (74-106); Lipase 88 U/L (73-393); Potassium 3.8 mmol/L (3.5-5.1); Sodium Level 137 mmol/L (136-145)
[2019-10-29] MEDS: Mag Hydrox/Al Hydrox/Simeth 30 ML UDC PO (00:29)
[2019-10-29 00:35] VITALS: BP 96/68; PULSE 66; RESP 16; O2SAT 95
== END 2019-10-29 00:45 | disposition home or self-care (01) ==
PROVIDERS: Emergency Provider Emergency Medicine; PCP Nurse Practitioner Family
DX: R10.13 Epigastric pain (principal); M54.9 Dorsalgia, unspecified; D68.51 Activated protein C resistance; G40.909 Epilepsy, unspecified, not intractable, without status epilepticus; Z86.73 Personal history of transient ischemic attack (TIA), and cerebral infarction without residual deficits; Z86.718 Personal history of other venous thrombosis and embolism; Z86.711 Personal history of pulmonary embolism; Z72.0 Tobacco use; F32.9 Major depressive disorder, single episode, unspecified; F41.9 Anxiety disorder, unspecified
CPT/HCPCS: 80053; 83690; 85025; 96361; 96374; 99283; J7030; J2405

== ENCOUNTER 2019-12-30 01:46 | Emergency (ER) | payer MEDICARE, SELFPAY ==
[2019-12-30 01:48] VITALS: BP 118/85; PULSE 110; RESP 16; TEMP 37.1; O2SAT 98; BMI 33.6
--- NOTE | 2019-12-30 02:16 | ED.DCSUM_ITS ---
History of Present Illness Chief Complaint: Abd Pain Informant: Patient Onset: Days Context: Sudden Onset Timing: Continuous Quality: Pain upper abdomen and right and left flank Location: Upper abdomen and right and left flank Current Severity: Mild Maximum Severity: Severe Worsened by: Any type of food Relieved by: Nothing Associated Symptoms: Nausea and diarrhea with blood and mucus. Narrative: Patient is a 44-year-old woman who presents with upper abdominal pain that radiates to the right left flank associated with nausea and diarrhea. She states there is blood and mucus in her stool. She has history of colitis. She does drink well water. Her parents drink the same well water. They are not ill. She is present on no medicine for her colitis. She denies fever, chills night sweats. She denies ocular, visual auditory symptoms. She denies congestion, runny nose or postnasal drainage. She denies dysphasia or dysphonia. She denies cardiac or respiratory symptoms. Nothing helps the with the pain. She denies urologic symptoms and there is no history of renal or ureterolithiasis. There is no history of trauma. Of note patient's had multiple visits for abdominal pain. There is also history of pancreatitis. She does have a care plan. Will adhere to the care plan. Prior similar symptoms: Yes Recent Illness/Hospitalization: Yes - Past Medical History (1) Anxiety Status: Chronic (2) Depression Status: Chronic (3) Factor V Leiden mutation Status: Chronic (4) History of alcohol abuse Status: Chronic (5) History of drug abuse Status: Chronic (6) History of pulmonary embolus (PE) Status: Chronic Comment: lifelong coumadin (7) Hyperlipidemia Status: Chronic (8) Hypertension Status: Chronic (9) Obesity (BMI 30.0-34.9) Status: Chronic (10) Presence of IVC filter Status: Chronic (11) Seizure disorder Status: Chronic Past Medical History - Allergies and Home Meds Allergies/Adverse Reactions: Allergies gabapentin [From Neurontin] Allergy (Verified 12/30/19 01:47) Rash morphine Allergy (Verified 12/30/19 01:47) HYPOTENSION Penicillins Allergy (Verified 12/30/19 01:47) Rash Sulfa (Sulfonamide Antibiotics) Allergy (Verified 12/30/19 01:47) Rash PT STATES ONLY HAPPENED ONCE BUT HAS TAKEN SINCE W/ NO PROBLEM Primary Care Physician: Rin Rivera NP-C [Primary Care Provider] - Prior records reviewed: Yes Surgical History: appendectomy, cholecystectomy, hysterectomy, - - x2, hysterectomy, cholecystectomy, appendectomy, tonsillectomy and adenectomy, [place] filter placed. Lives: With Family Smoking Status: Current every day smoker Drugs: - - Old records patient has history of drug use - Family History Paternal Family History: Reports: Hypertension, - Maternal Family History: Reports: Unknown Review of Systems General: Denies: Chills, Fever, Malaise, Subjective, Sweats Eyes: Denies: Visual changes - bilaterally, Blurred Vision - bilaterally ENT: Denies: Bilateral ear pain, Rhinorrhea, Sore throat Cardiovascular: Denies: Chest pain, Palpitations Respiratory: Denies: Dyspnea, Cough, Dyspnea on exertion Gastrointestinal: Reports: Abdominal pain, Nausea, Diarrhea, Hematochezia. Denies: Vomiting, Constipation, Melena Genitourinary: Denies: Dysuria, Hematuria, Frequency Musculoskeletal: Denies: Myalgias, Arthralgias, Neck pain, Back pain, Swelling, Extremity Pain, -, - Skin: Denies: Rash, Wounds Neurological: Denies: Headache, Weakness, Numbness Psych: Reports: Depression, Anxiety Endocrine: Denies: Polyuria, Polydipsia Hematologic: Denies: Easy bruising, Easy bleeding Allergy: Denies: Uticaria Physical Exam Vital Signs/Narrative: Vital Signs Temp Pulse Resp BP Pulse Ox 12/30/19 01:48 98.7 F 110 H 16 118/85 H 98 Inital Vital Signs reviewed: Yes General: Well nourished, Well developed, Obese, No Acute Distress. Negative for: Cachectic, Contractures Head: Normocephalic, Atraumatic Eyes: Perrl, EOMI. Negative for: Pale conjunctiva, Scleral icterus ENT: No rhinorrhea, Dry mucous membranes. Negative for: Nasal congestion Neck: Supple, Nontender, No lymphadenopathy, No JVD Cardiovascular: Regular rate, Regular rhythm, No murmurs, Normal S1, Normal S2 Respiratory: No distress, CTA bilaterally, Chest nontender Abdomen: Soft, Nontender, Nondistended, Normal bowel sounds, No masses Back: Nontender, Normal Inspection. Negative for: CVA tenderness Extremities: Nontender, No edema Skin: Normal color, No rash, No Trauma. Negative for: Cyanosis, Diaphoresis, Jaundice Neurological: Alert, Oriented x3, Cranial nerves II-XII grossly intact, Normal Strength, Normal Sensation Psychological: Depressed Diagnostic/Tx/Re-eval Laboratory Results 12/30/19 12/30/19 12/30/19 02:05 02:30 02:30 WBC 6.8 RBC 3.91 L Hgb 12.7 Hct 38.0 MCV 97.2 MCH 32.5 H MCHC 33.4 RDW Std Deviation 42.2 RDW Coeff of Megan 12.0 Plt Count 257 MPV 8.3 Immature Gran % (Auto) 0.300 Neut % (Auto) 48.9 Lymph % (Auto) 41.4 H [place] % (Auto) 7.8 Eos % (Auto) 1.2 Baso % (Auto) 0.4 Absolute Neuts (auto) 3.3 Absolute Lymphs (auto) 2.81 Nucleated RBC % 0 PT 25.1 H INR 2.3 Sodium Potassium Chloride Carbon Dioxide Anion Gap BUN Creatinine Estim Creat Clear Calc Est GFR (MDRD) Af Amer Est GFR (MDRD) Non-Af BUN/Creatinine Ratio Glucose Lactic Acid Calcium Total Bilirubin AST ALT Alkaline Phosphatase Total Protein Albumin Globulin Albumin/Globulin Ratio Lipase Urine Color Yellow Urine Clarity Sl. Cloudy Urine pH 8.0 Ur Specific [place] 1.015 Urine Protein Negative Urine Glucose (UA) Normal Urine Ketones Negative Urine Occult Blood Negative Urine Nitrite Negative Urine Bilirubin Negative Urine Urobilinogen Normal Ur Leukocyte Esterase 25 H 12/30/19 12/30/19 02:30 02:30 WBC RBC Hgb Hct MCV MCH MCHC RDW Std Deviation RDW Coeff of Megan Plt Count MPV Immature Gran % (Auto) Neut % (Auto) Lymph % (Auto) [place] % (Auto) Eos % (Auto) Baso % (Auto) Absolute Neuts (auto) Absolute Lymphs (auto) Nucleated RBC % PT INR Sodium 139 Potassium 4.2 Chloride 112 H Carbon Dioxide 21.0 Anion Gap 6 BUN 27 H Creatinine 1.70 H Estim Creat Clear Calc 34.57 Est GFR (MDRD) Af Amer 42 L Est GFR (MDRD) Non-Af 35 L BUN/Creatinine Ratio 15.9 Glucose 89 Lactic Acid Cancelled Calcium 8.0 L Total Bilirubin 0.20 AST 32 ALT 45 Alkaline Phosphatase 87 Total Protein 6.5 Albumin 3.3 Globulin 3.2 Albumin/Globulin Ratio 1.0 Lipase 90 Urine Color Urine Clarity Urine pH Ur Specific [place] Urine Protein Urine Glucose (UA) Urine Ketones Urine Occult Blood Urine Nitrite Urine Bilirubin Urine Urobilinogen Ur Leukocyte Esterase Work is remarkable for an elevated creatinine of 1.70 with an estimated GFR of 35. Liver enzymes are unremarkable. Urinalysis is unremarkable. CBC is unremarkable. INR is therapeutic. Creatinine is approximately 2 times normal. This is probably related to the poor intake and diarrhea. P.o. challenge was ordered. If patient is able to drink with no emesis and at the time of reevaluation if she has not had a bowel movement/watery stool will discharge to home to be followed up by her PCP for blood work in the next 3 to 5 days. Patient was upset that she has not received anything for pain. She was informed the Bentyl that she was ordered is for abdominal pain. She acknowledged that she has a care plan. She acknowledges that she is not to receive opiates, semi- synthetic opiates and is not a candidate for Toradol because she is on Coumadin. Patient did pass p.o. challenge. Time of this addendum is 0341 - Medical Decision Making Abdominal pain of unknown etiology, pancreatitis, irritable bowel syndrome, ulcerative colitis since she has history, viral or bacterial/infectious diarrhea, to evaluate patient's symptoms appropriate blood work was ordered. She was treated with Zofran for her nausea. Will review prior visits and care plan. 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 Take Zofran for nausea 2. Take Imodium for your diarrhea 3. Make an appointment to be seen by your primary care physician to have blood draw in 3 to 4 days.
[2019-12-30] MEDS: 0.9% Normal Saline 1,000 ML 1000 ML IV (02:31)
[2019-12-30] MEDS: Ondansetron 4 MG/2 ML Vial IV (02:31)
[2019-12-30 02:39] LABS: Color, Urine Yellow (Yellow); Glucose, Dipstick Normal (Normal); Ketone-Dipstick Negative (Negative); Leukocyte Esterase-Dipstick 25 /ul (Negative); Nitrite-Dipstick Negative (Negative); Occult Blood-Urine Negative /ul (Negative); Protein-Dipstick Negative (Negative); Specific Gravity, Urine 1.015 (1.002-1.030); Urine Bilirubin Dipstick Negative (Negative); Urine Clarity Sl. Cloudy (Clear); Urine Urobilinogen Normal (Normal)
[2019-12-30 03:03] LABS: International Normalized Ratio 2.3; Prothrombin Time (Protime)PT. 25.1 SECONDS (11.7-14.9)
[2019-12-30] MEDS: Dicyclomine 10 MG Capsule 20 MG PO (03:16)
[2019-12-30 03:17] LABS: AST(SGOT) 32 U/L (15-37); Absolute Lymphocyte Count 2.81 X10^3/uL (0.83-4.51); Absolute Neutrophil Count 3.3 X10^3/uL (2.0-7.7); Alanine Aminotransfer ALT/SGPT 45 U/L (13-56); Albumin, Serum 3.3 g/dL (3.2-5.0); Alkaline Phosphatase 87 U/L (45-117); Anion Gap 6 (5-15); BUN 27 mg/dL (7-18); BUN/Creat Ratio 15.9 RATIO (10-20); Basophil# 0.03 X10^3/uL; Basophil% 0.4 % (0-1); Chloride 112 mmol/L (98-107); EST Glomerular Filtration Rate 35 mL/min (>60); Eosinophil# 0.08 X10^3/uL; Eosinophils% 1.2 % (0-5); Est Glom Filt Rate - Afr Amer 42 mL/min (>60); Estimated Creatinine Clearance 34.57 ml/min; Globulin 3.2 g/dL (2.2-4.2); Glucose 89 mg/dL (74-106); Hemoglobin 12.7 g/dL (12.0-15.0); Lipase 90 U/L (73-393); Lymphocyte # 2.81 X10^3/ul (4.0); Lymphocyte % 41.4 % (19-41); Mean Corp Hgb Conc 33.4 g/dL (32-36); Mean Corpuscular Hgb 32.5 pg (27.0-32.0); Mean Corpuscular Volume 97.2 fL (81-99); Mean Platelet Vol. 8.3 fl (6.2-12.0); Monocyte# 0.53 X10^3/uL; Monocyte% 7.8 % (0-10); NRBC Flagged by Analyzer 0 % (0-5); Neutrophil # 3.32 X10^3/uL (2.7-7.7); Neutrophil % 48.9 % (47-70); Platelet Count 257 K/mm3 (150-450); Potassium 4.2 mmol/L (3.5-5.1); Protein, Total 6.5 g/dL (6.4-8.2); RBC Distribution Width SD 42.2 fl (35.1-43.9); Red Blood Count 3.91 M/mm3 (4.2-5.4); Sodium Level 139 mmol/L (136-145); White Blood Count 6.8 K/mm3 (4.4-11.0)
[2019-12-30 04:07] VITALS: BP 112/71; PULSE 84; RESP 17; O2SAT 98
== END 2019-12-30 04:08 | disposition home or self-care (01) ==
PROVIDERS: Emergency Provider Emergency Medicine; PCP Nurse Practitioner Family
DX: R10.11 Right upper quadrant pain (principal); N17.9 Acute kidney failure, unspecified; R19.7 Diarrhea, unspecified; Z79.01 Long term (current) use of anticoagulants; F32.9 Major depressive disorder, single episode, unspecified; F41.9 Anxiety disorder, unspecified; E66.9 Obesity, unspecified; G40.909 Epilepsy, unspecified, not intractable, without status epilepticus; E78.5 Hyperlipidemia, unspecified; I10 Essential (primary) hypertension; D68.51 Activated protein C resistance; F17.200 Nicotine dependence, unspecified, uncomplicated; Z82.49 Family history of ischemic heart disease and other diseases of the circulatory system; Z86.711 Personal history of pulmonary embolism; Z88.0 Allergy status to penicillin; Z88.2 Allergy status to sulfonamides; Z88.8 Allergy status to other drugs, medicaments and biological substances; Z90.49 Acquired absence of other specified parts of digestive tract; Z90.710 Acquired absence of both cervix and uterus; Z68.34 Body mass index [BMI] 34.0-34.9, adult
CPT/HCPCS: 80053; 81002; 83690; 85025; 85610; 96361; 96374; 99285; J7030; A4216; J2405

== ENCOUNTER 2020-01-18 13:36 | Outpatient (RCR) | payer MEDICARE, SELFPAY ==
[2020-01-18 14:13] LABS: International Normalized Ratio 1.9; Prothrombin Time (Protime)PT. 21.1 SECONDS (11.7-14.9)
[2020-01-18 14:24] LABS: ALB/GLOB Ratio 1.1 RATIO (0.9-2.4); AST(SGOT) 18 U/L (15-37); Alanine Aminotransfer ALT/SGPT 59 U/L (13-56); Albumin, Serum 4.1 g/dL (3.2-5.0); Alkaline Phosphatase 128 U/L (45-117); Anion Gap 11 (5-15); BUN 11 mg/dL (7-18); Calcium,Total 9.2 mg/dL (8.5-10.1); Chloride 110 mmol/L (98-107); EST Glomerular Filtration Rate 64 mL/min (>60); Est Glom Filt Rate - Afr Amer 77 mL/min (>60); Globulin 3.6 g/dL (2.2-4.2); Glucose 114 mg/dL (74-106); Potassium 3.5 mmol/L (3.5-5.1); Protein, Total 7.7 g/dL (6.4-8.2); Sodium Level 139 mmol/L (136-145)
== END 2020-01-18 18:00 | disposition home or self-care (01) ==
LOC: LAB 13:36
PROVIDERS: PCP Nurse Practitioner Family; Referring Provider Nurse Practitioner Family; Visit Provider Nurse Practitioner Family
DX: Z86.718 Personal history of other venous thrombosis and embolism (principal); Z79.01 Long term (current) use of anticoagulants; Z51.81 Encounter for therapeutic drug level monitoring
CPT/HCPCS: 36415; 80053; 85610

== ENCOUNTER 2020-04-21 21:39 | Emergency (ER) | payer MEDICARE, SELFPAY ==
[2020-04-21 21:40] VITALS: BP 129/39; PULSE 96; RESP 16; TEMP 36.2; O2SAT 98; BMI 30.9
--- NOTE | 2020-04-21 22:12 | US_ITS ---
STUDY: VENOUS DOPPLER ULTRASOUND - RIGHT LOWER EXTREMITY REASON FOR EXAM: Female, 44 years old. RLE PAIN- POSTERIOR CALF X 2 DAYS ON BLOOD THINNERS TECHNIQUE: Ultrasound evaluation of the deep vein system to include ryder-scale imaging and compression was performed. Ryder-scale imaging and Doppler sonographic evaluation, including duplex spectral analysis and qualitative color flow sonography, was performed. COMPARISON: None. FINDINGS: Common Femoral Vein: Normal compression, spontaneity and augmentation. Normal color Doppler. Common Femoral Vein/Greater Saphenous Junction: Normal compression, spontaneity and augmentation. Normal color Doppler. Deep Femoral Vein: Normal compression, spontaneity and augmentation. Normal color Doppler. Femoral Proximal: Normal compression, spontaneity and augmentation. Normal color Doppler. Femoral Middle: Normal compression, spontaneity and augmentation. Normal color Doppler. Femoral Distal: Normal compression, spontaneity and augmentation. Normal color Doppler. Popliteal Vein: Normal compression, spontaneity and augmentation. Normal color Doppler. Posterior Tibial Vein: Normal compression, spontaneity and augmentation. Normal color Doppler. Peroneal Vein: Normal compression, spontaneity and augmentation. Normal color Doppler. The left common femoral vein was evaluated and is normal. Tiny hyperechoic nodule in the subcutaneous fat of the skin in the posterior aspect of the upper calf is favored to represent a small island of fat or similar benign entity. US/Venous Duplex Imag/Limited/Uni IMPRESSION: 1. No demonstrated deep venous anastomosis of the right lower extremity. Electronically Signed: Taurus Acevedo MD at 23:25 EDT , Service support ,
--- NOTE | 2020-04-21 23:12 | ED.VISSUMM ---
- ER Visit Summary Date of Service: 04/21/20 Chief Complaint: Right calf pain History of Present Illness: The patient is a [address] Elias. Patient reports she has right calf pain that began yesterday. Is a dull, aching pain is 5-10 severity currently and at worst. She taken Tylenol with minimal relief. She denies any recent trauma. No fall, MVA, or change in activity. She does have a history of similar symptoms with DVT. She reports that she had her INR checked today and it was 1.8. She denies any chest pain or shortness of breath. Physical Examination: Vitals: Stable. Afebrile. General: Well-nourished and well-developed. Head: Normocephalic atraumatic. Neck: Supple, no lymphadenopathy. No JVD. Nontender. Cardiovascular: Regular rate and rhythm. No murmurs. Respiratory: No respiratory distress. Clear to auscultation bilaterally. Abdominal: Soft, nontender, nondistended, normal bowel sounds. No guarding, rebound, or peritoneal signs. Back: Nontender. Extremities: Mild tenderness palpation over her right calf. No pain over her Achilles which is intact. No edema. No erythema or warmth to suggest infection. She has a 2+ dorsalis pedis pulse. Skin: Normal color, no rash. Neurologic: Alert and oriented ?3. Cranial nerves II through XII are intact. Normal strength and sensation. Psych: Normal affect. Test Results: Right lower extremity Doppler shows no clot. Emergency Department Course and Treatment: Patient refused pain medications. She is resting comfortably. Treatment Plan: Patient be discharged symptomatic care. Instructed to follow-up with her primary care physician in 3 to 5 days if not improving. Return to the emergency department for any worsening symptoms. Disposition: To home in improved and stable condition. Impression: 1. Right calf pain, acute. 2. Coumadin coagulopathy. This note was generated with [employer] dictation software. It may contain incorrect words, spelling, and punctuation that were not noted in review of the chart prior to signing ED Disposition - Plan for ED Patient: Disposition: Home or Assisted Living Instructions: ED Muscle Pain Leg Cramps Referrals: Rin Rivera NP-C [Primary Care Provider] - 3-5 Days if not improving
== END 2020-04-21 23:29 | disposition home or self-care (01) ==
PROVIDERS: Emergency Provider Emergency Medicine; PCP Nurse Practitioner Family
DX: M79.661 Pain in right lower leg (principal); T45.515A Adverse effect of anticoagulants, initial encounter; R79.1 Abnormal coagulation profile; Z79.01 Long term (current) use of anticoagulants; Z86.718 Personal history of other venous thrombosis and embolism
CPT/HCPCS: 93971; 99282

== ENCOUNTER 2020-07-04 15:16 | Emergency (ER) | payer MEDICARE, SELFPAY ==
[2020-07-04 15:17] VITALS: BP 151/83; PULSE 102; RESP 16; TEMP 36.1; O2SAT 99; BMI 33.6
--- NOTE | 2020-07-04 16:15 | ED.VIS.GEN ---
History of Present Illness Chief Complaint: Abd Pain Informant: Patient Onset: Days Context: Sudden Onset Timing: Continuous Quality: Pain Location: Right upper quadrant referring to right shoulder Current Severity: Mild Maximum Severity: Moderate Worsened by: Movement Relieved by: Nothing Associated Symptoms: Nausea Narrative: Patient is a 44-year-old woman history of cholecystectomy and pancreatitis due to alcohol consumption. He states last week and she had 5 drinks. She states she is having diarrhea but because she took a laxative because she was constipated. Denies blood or mucus in her stool. She does report nausea without vomiting. She denies cough, shortness of breath or difficulty breathing. She denies history of VTE. She denies leg pain, swelling discoloration. She denies fever, chills night sweats. Prior similar symptoms: Yes - Pancreatitis Recent Illness/Hospitalization: No - Past Medical History (1) Anxiety Status: Chronic (2) Depression Status: Chronic (3) Factor V Leiden mutation Status: Chronic (4) History of alcohol abuse Status: Chronic (5) History of drug abuse Status: Chronic (6) History of pulmonary embolus (PE) Status: Chronic Comment: lifelong coumadin (7) Hyperlipidemia Status: Chronic (8) Hypertension Status: Chronic (9) Obesity (BMI 30.0-34.9) Status: Chronic (10) Presence of IVC filter Status: Chronic (11) Seizure disorder Status: Chronic Past Medical History - Allergies and Home Meds Allergies/Adverse Reactions: Allergies gabapentin [From Neurontin] Allergy (Verified 04/21/20 21:42) Rash morphine Allergy (Verified 04/21/20 21:42) HYPOTENSION Penicillins Allergy (Verified 04/21/20 21:42) Rash Sulfa (Sulfonamide Antibiotics) Allergy (Verified 04/21/20 21:42) Rash PT STATES ONLY HAPPENED ONCE BUT HAS TAKEN SINCE W/ NO PROBLEM Primary Care Physician: Rin Rivera INTERLIBRARY LOAN SPECIALIST, INTERLIBR[employer] LOAN SPECIALIST-C [Primary Care Provider] - Prior records reviewed: Yes - There is history of pulmonary embolus and patient has IVC Surgical History: appendectomy, cholecystectomy, hysterectomy, - - x2, hysterectomy, cholecystectomy, appendectomy, tonsillectomy and adenectomy, [place] filter placed. Lives: Alone Smoking Status: Current every day smoker Alcohol: Occasional Drugs: None - Family History Paternal Family History: Reports: Hypertension, - Maternal Family History: Reports: Unknown Review of Systems General: Reports: Malaise. Denies: Chills, Fever, Subjective, Sweats Eyes: Denies: Visual changes - bilaterally, Blurred Vision - bilaterally ENT: Denies: Rhinorrhea, Sore throat Cardiovascular: Denies: Chest pain, Palpitations Respiratory: Denies: Dyspnea, Cough, Sputum, Dyspnea on exertion Gastrointestinal: Reports: Abdominal pain, Nausea, Diarrhea, Constipation. Denies: Vomiting, Melena, Hematochezia Genitourinary: Denies: Dysuria, Hematuria, Frequency Musculoskeletal: Denies: Myalgias, Arthralgias, Neck pain, Back pain, Swelling, Extremity Pain Skin: Denies: Rash, Wounds Neurological: Denies: Headache Psych: Reports: Depression Endocrine: Denies: Polyuria, Polydipsia Hematologic: Denies: Easy bruising, Easy bleeding Physical Exam Vital Signs/Narrative: Vital Signs Temp Pulse Resp BP Pulse Ox 07/04/20 15:17 96.9 F L 102 H 16 151/83 H 99 Inital Vital Signs reviewed: Yes General: Well nourished, Well developed Head: Normocephalic, Atraumatic Eyes: Perrl, EOMI. Negative for: Pale conjunctiva, Scleral icterus ENT: Moist mucous membranes, No rhinorrhea, TM's clear Neck: Supple, Nontender, No lymphadenopathy, No JVD Cardiovascular: Regular rate, Regular rhythm, No murmurs, Normal S1, Normal S2 Respiratory: No distress, CTA bilaterally, Chest nontender. Negative for: Diminished, Decreased Air Movement, Chest tenderness Abdomen: Soft, Nondistended, Normal bowel sounds, No masses, Tender Rectal: Deferred Back: Nontender, Normal Inspection Extremities: Nontender, No edema. Negative for: Tenderness Skin: Normal color, No rash, No Trauma. Negative for: Cyanosis, Diaphoresis, Jaundice Neurological: Alert, Oriented x3, Cranial nerves II-XII grossly intact, Normal Strength, Normal Sensation Psychological: Depressed Diagnostic/Tx/Re-eval Impressions Acute Abdomen Series 07/04/20 17:20 IMPRESSION: No acute pathology is seen. Mild colonic fecal retention. Electronically Signed: Sam Novoa DO at 17:53 EDT Tel [phone], Service support , 07/04/20 17:20 Acute Abdomen Inc Chest [RAD] Stat Laboratory Results 07/04/20 07/04/20 07/04/20 16:55 16:55 17:35 WBC 4.4 RBC 4.77 Hgb 15.1 H Hct 46.1 MCV 96.6 MCH 31.7 MCHC 32.8 RDW Std Deviation 45.4 H RDW Coeff of Megan 12.8 Plt Count 256 MPV 8.0 Immature Gran % (Auto) 0.200 Neut % (Auto) 60.7 Lymph % (Auto) 30.2 [place] % (Auto) 6.8 Eos % (Auto) 1.4 Baso % (Auto) 0.7 Absolute Neuts (auto) 2.7 Absolute Lymphs (auto) 1.34 Nucleated RBC % 0 Sodium Cancelled 142 Potassium Cancelled 3.8 Chloride Cancelled 113 H Carbon Dioxide Cancelled 23.0 Anion Gap Cancelled 6 BUN Cancelled 13 Creatinine Cancelled 0.83 Estim Creat Clear Calc Cancelled 70.80 Est GFR (MDRD) Af Amer Cancelled 96 Est GFR (MDRD) Non-Af Cancelled 79 BUN/Creatinine Ratio Cancelled 15.7 Glucose Cancelled 97 Calcium Cancelled 8.6 Total Bilirubin Cancelled 0.60 AST Cancelled 779 H ALT Cancelled 711 H Alkaline Phosphatase Cancelled 259 H Total Protein Cancelled 7.3 Albumin Cancelled 3.5 Globulin Cancelled 3.8 Albumin/Globulin Ratio Cancelled 0.9 Lipase Cancelled 412 H Patient AST and ALT are approximately 10 times upper end of normal. This may be related to her drinking heavily. Is also may be related to her weight i.e. fatty liver. She was medicated with morphine and Zofran prior to discharge and a prescription of Zofran was dispensed. - Medical Decision Making Differential diagnosis includes diaphragm irritation to right lower lobe pneumonia, biliary disease, pancreatitis. Appropriate labs were ordered. She was ordered IV Toradol since she has history of alcohol use and drug addiction. Chest x-ray was obtained to evaluate for intra-abdominal pathology that may explain her right upper quadrant pain referred to her shoulder. As well as evaluate for right lower lobe pneumonia. ED Disposition - Plan for ED Patient: Disposition: Home or Assisted Living Diagnosis: Alcoholic liver disease, Right upper quadrant pain Instructions: Non-Alcoholic Fatty Liver Disease (NAFLD), ED Cirrhosis Prescriptions: Ondansetron [Zofran Odt] 4 mg PO Q8H PRN PRN #10 tab PRN Reason: Nausea Transmission Status: Pending to [id number] Referrals: Rin Rivera INTERLIBRARY LOAN SPECIALIST, INTERLIBRARY LOAN SPECIALIST-C [Primary Care Provider] - 3-5 Days if not improving
[2020-07-04 17:02] LABS: Absolute Lymphocyte Count 1.34 X10^3/uL (0.83-4.51); Absolute Neutrophil Count 2.7 X10^3/uL (2.0-7.7); Basophil# 0.03 X10^3/uL; Basophil% 0.7 % (0-1); Eosinophil# 0.06 X10^3/uL; Eosinophils% 1.4 % (0-5); Hematocrit 46.1 % (37-47); Hemoglobin 15.1 g/dL (12.0-15.0); Lymphocyte # 1.34 X10^3/ul (4.0); Lymphocyte % 30.2 % (19-41); Mean Corp Hgb Conc 32.8 g/dL (32-36); Mean Corpuscular Hgb 31.7 pg (27.0-32.0); Mean Corpuscular Volume 96.6 fL (81-99); Monocyte% 6.8 % (0-10); NRBC Flagged by Analyzer 0 % (0-5); Neutrophil # 2.69 X10^3/uL (2.7-7.7); Neutrophil % 60.7 % (47-70); Platelet Count 256 K/mm3 (150-450); RBC Distribution Width CV 12.8 % (11.6-14.6); RBC Distribution Width SD 45.4 fl (35.1-43.9); Red Blood Count 4.77 M/mm3 (4.2-5.4); White Blood Count 4.4 K/mm3 (4.4-11.0)
[2020-07-04] MEDS: Ketorolac 15 MG/ML Vial IV (17:06)
--- NOTE | 2020-07-04 17:20 | RAD_ITS ---
STUDY: X-RAY - ACUTE ABDOMINAL SERIES REASON FOR EXAM: Female, 44 years old. Right upper quadrant pain TECHNIQUE: Single view of the chest. Supine, 3 view(s) of the abdomen were obtained. COMPARISON: None. FINDINGS: The lungs are clear and expanded. Normal size heart. Normal mediastinum and lance. Normal visualized pulmonary arteries. Normal visualized aortic arch and descending thoracic aorta. There is a non-specific bowel gas pattern. Surgical clips in the right upper quadrant. IVC filter is noted. Old right rib fractures. RAD/Acute Abdomen Inc Chest IMPRESSION: No acute pathology is seen. Mild colonic fecal retention. Electronically Signed: Sam Novoa DO at 17:53 EDT Tel [phone], Service support ,
[2020-07-04 17:55] VITALS: BP 115/86; PULSE 71; RESP 16; O2SAT 98
[2020-07-04 18:07] LABS: ALB/GLOB Ratio 0.9 RATIO (0.9-2.4); AST(SGOT) 779 U/L (15-37); Alanine Aminotransfer ALT/SGPT 711 U/L (13-56); Albumin, Serum 3.5 g/dL (3.2-5.0); Alkaline Phosphatase 259 U/L (45-117); Anion Gap 6 (5-15); BUN 13 mg/dL (7-18); BUN/Creat Ratio 15.7 RATIO (10-20); Calcium,Total 8.6 mg/dL (8.5-10.1); Chloride 113 mmol/L (98-107); Creatinine, Serum 0.83 mg/dL (0.55-1.02); EST Glomerular Filtration Rate 79 mL/min (>60); Est Glom Filt Rate - Afr Amer 96 mL/min (>60); Globulin 3.8 g/dL (2.2-4.2); Glucose 97 mg/dL (74-106); Lipase 412 U/L (73-393); Potassium 3.8 mmol/L (3.5-5.1); Protein, Total 7.3 g/dL (6.4-8.2); Sodium Level 142 mmol/L (136-145)
[2020-07-04] MEDS: Ondansetron 4 MG/2 ML Vial IV (18:57)
[2020-07-04 18:58] VITALS: BP 114/75; PULSE 78; RESP 16; O2SAT 97
[2020-07-04] MEDS: Morphine 4 MG/ML Syringe IV (18:59)
== END 2020-07-04 19:09 | disposition home or self-care (01) ==
PROVIDERS: Emergency Provider Emergency Medicine; PCP Nurse Practitioner Family
DX: K70.9 Alcoholic liver disease, unspecified (principal); F17.200 Nicotine dependence, unspecified, uncomplicated; E66.9 Obesity, unspecified; Z87.19 Personal history of other diseases of the digestive system; Z86.711 Personal history of pulmonary embolism; Z79.01 Long term (current) use of anticoagulants
CPT/HCPCS: 74022; 80053; 83690; 85025; 96374; 96375; 99281; 99284; A4216; J2405

== ENCOUNTER 2020-08-27 00:21 | Emergency (ER) | payer MEDICARE, SELFPAY ==
[2020-08-27 00:22] VITALS: BP 107/76; PULSE 85; RESP 18; TEMP 37.3; O2SAT 99; BMI 36.3
[2020-08-27 00:25] VITALS: BP 107/76; PULSE 82; RESP 18; TEMP 37.3; O2SAT 100
--- NOTE | 2020-08-27 00:31 | ED.VIS.GEN ---
History of Present Illness Chief Complaint: Back Informant: Patient Narrative: Stated that she is here for pain control. She was diagnosed with a urinary tract infection in her doctor's office today given injection of IM Rocephin and started on Keflex antibiotics. They did do lab work. She has had UTI symptoms for the last 4 days. No fevers or chills. She has some nausea this evening. She also stated she had an abscess drained on her right inferior buttock that started out as a pimple and got bigger over the last 5 days. She is on Keflex for this as well. They placed a wick. She stated she is having some soreness in this area but the main reason she came in was her UTI pain in her back. Is alternating Tylenol and ibuprofen. - Past Medical History (1) Anxiety Status: Chronic (2) Depression Status: Chronic (3) Factor V Leiden mutation Status: Chronic (4) History of alcohol abuse Status: Chronic (5) History of drug abuse Status: Chronic (6) History of pulmonary embolus (PE) Status: Chronic Comment: lifelong coumadin (7) Hyperlipidemia Status: Chronic (8) Hypertension Status: Chronic (9) Obesity (BMI 30.0-34.9) Status: Chronic (10) Presence of IVC filter Status: Chronic (11) Seizure disorder Status: Chronic (12) Acute pancreatitis Status: Resolved (13) Acute pancreatitis Status: Resolved Past Medical History - Allergies and Home Meds Allergies/Adverse Reactions: Allergies gabapentin [From Neurontin] Allergy (Verified 08/27/20 00:25) Rash morphine Allergy (Verified 08/27/20 00:25) HYPOTENSION Penicillins Allergy (Verified 08/27/20 00:25) Rash Sulfa (Sulfonamide Antibiotics) Allergy (Verified 08/27/20 00:25) Rash PT STATES ONLY HAPPENED ONCE BUT HAS TAKEN SINCE W/ NO PROBLEM Primary Care Physician: Rin Rivera SOLAR SALES REPRESENTATIVE, SOLAR SALES REPRESENTATIVE-C [Primary Care Provider] - Prior records reviewed: Yes Past Medical History: - - See problem list Surgical History: appendectomy, cholecystectomy, hysterectomy, - - x2, hysterectomy, cholecystectomy, appendectomy, tonsillectomy and adenectomy, [place] filter placed. Smoking Status: Current every day smoker Alcohol: None Drugs: None - Family History Paternal Family History: Reports: Hypertension, - Maternal Family History: Reports: Unknown Review of Systems General: Denies: Chills, Fever, Sweats Eyes: Denies: Visual changes - bilaterally, Diplopia ENT: Denies: Rhinorrhea, Sore throat Cardiovascular: Denies: Chest pain, Palpitations Respiratory: Denies: Dyspnea, Cough, Dyspnea on exertion Gastrointestinal: Reports: Nausea, Vomiting. Denies: Abdominal pain, Diarrhea, Melena, Hematochezia Genitourinary: Denies: Dysuria, Hematuria, Frequency Musculoskeletal: Reports: Back pain. Denies: Extremity Pain Skin: Reports: Abscess. Denies: Rash, Wounds Neurological: Denies: Headache, Weakness, Numbness Physical Exam Vital Signs/Narrative: Vital Signs Temp Pulse Resp BP Pulse Ox 08/27/20 00:25 99.1 F 82 18 107/76 100 08/27/20 00:22 99.1 F 85 18 107/76 99 General: Well nourished, Well developed, No Acute Distress Head: Normocephalic, Atraumatic Eyes: Perrl, EOMI ENT: Moist mucous membranes, No rhinorrhea Neck: Supple, Nontender Cardiovascular: Regular rate, Regular rhythm, No murmurs Respiratory: No distress, CTA bilaterally, Chest nontender Abdomen: Soft, Nontender, Nondistended, Normal bowel sounds Back: Normal Inspection, CVA tenderness - Mild tenderness right CVA Extremities: Nontender, No edema Skin: - - Has a small abscess on the right inferior buttock that has a wick in the center. There is no drainage. There is mild surrounding cellulitis measuring 1 inch around. Neurological: Alert, Oriented x3, Cranial nerves II-XII grossly intact, Normal Strength, Normal Sensation Psychological: Normal affect, Normal Mood Diagnostic/Tx/Re-eval - Medical Decision Making Patient given a dose of Dilaudid and Zofran department for symptom control. I do not feel she needs to be admitted or needs further lab work. I will add Bactrim to her regimen to help cover for MRSA for this abscess with mild cellulitis. We will follow-up as an outpatient. Given a short course of Percocet and Zofran for home ED Disposition - Plan for ED Patient: Disposition: Home or Assisted Living Diagnosis: Pyelonephritis, Skin abscess Instructions: ED Abscess Incision And Drainage, ED Pyelonephritis, Female (Adult) Prescriptions: Smz/Tmp Ds [Bactrim Ds] 1 tab PO BID #20 tab Transmission Status: Pending to [facility] SIER[facility] [address] Oxycodone HCl/Acetaminophen [Percocet 5/325] 1 tab PO Q6H PRN PRN 3 Days #8 tab PRN Reason: Pain Prescription Printed Ondansetron [Zofran Odt] 8 mg PO Q8H PRN PRN #20 tab PRN Reason: Nausea Transmission Status: Received by KIEL SIERRA [facility] Referrals: Rin Rivera NP, SOLAR SALES REPRESENTATIVE-C [Primary Care Provider] -
[2020-08-27] MEDS: HYDROmorphone 0.5 MG/0.5 ML SYRINGE IM (00:36)
[2020-08-27] MEDS: Ondansetron ODT 4 MG Tablet 8 MG PO (00:37)
[2020-08-27 01:15] VITALS: BP 113/81; PULSE 85; RESP 16
== END 2020-08-27 01:28 | disposition home or self-care (01) ==
LOC: ED 01:13
PROVIDERS: Emergency Provider Emergency Medicine; PCP Nurse Practitioner Family
DX: N12 Tubulo-interstitial nephritis, not specified as acute or chronic (principal); L02.31 Cutaneous abscess of buttock; F32.9 Major depressive disorder, single episode, unspecified; F41.9 Anxiety disorder, unspecified; D68.51 Activated protein C resistance; E66.9 Obesity, unspecified; E78.5 Hyperlipidemia, unspecified; I10 Essential (primary) hypertension; G40.909 Epilepsy, unspecified, not intractable, without status epilepticus; F17.200 Nicotine dependence, unspecified, uncomplicated; Z79.01 Long term (current) use of anticoagulants; Z82.49 Family history of ischemic heart disease and other diseases of the circulatory system; Z86.711 Personal history of pulmonary embolism; Z88.0 Allergy status to penicillin; Z88.2 Allergy status to sulfonamides; Z88.8 Allergy status to other drugs, medicaments and biological substances; Z90.49 Acquired absence of other specified parts of digestive tract; Z90.710 Acquired absence of both cervix and uterus; Z68.34 Body mass index [BMI] 34.0-34.9, adult
CPT/HCPCS: 96372; 99283

== ENCOUNTER 2020-10-09 13:25 | Emergency (ER) | payer MEDICARE, MEDICAID, SELFPAY ==
[2020-10-09 13:25] VITALS: BP 126/88; PULSE 91; RESP 17; TEMP 35.8; O2SAT 98; BMI 33.3
--- NOTE | 2020-10-09 13:43 | ED.VIS.GEN ---
History of Present Illness Chief Complaint: GI Bleed Informant: Patient Onset: Today Context: Sudden Onset Timing: Intermittent Current Severity: Mild Maximum Severity: Moderate Narrative: Patient is a 44-year-old female with medical history significant for seizure disorder, factor V Leiden, prior stroke, who is on Coumadin the presents to the emergency department abdominal cramping and an episode of red blood mixed with stool. She states she woke up this morning was in her normal state of health. She states she is been on Keflex for strep in her urine. She states she had some abdominal cramping, and felt the urge to move her bowels. She states there was some bright red blood mixed with the stool. She has not had any further episodes since. She denies any history of inflammatory bowel disease. She is unsure if she is never had colonoscopy. She states she has had bleeding before in the past when she had pancreatitis. She states she is otherwise been in her normal state of health. Prior similar symptoms: Yes Recent Illness/Hospitalization: No Past Medical History - Allergies and Home Meds Allergies/Adverse Reactions: Allergies gabapentin [From Neurontin] Allergy (Verified 10/09/20 14:02) Rash morphine Allergy (Verified 10/09/20 14:02) HYPOTENSION Penicillins Allergy (Verified 10/09/20 14:02) Rash Sulfa (Sulfonamide Antibiotics) Allergy (Verified 10/09/20 14:02) Rash PT STATES ONLY HAPPENED ONCE BUT HAS TAKEN SINCE W/ NO PROBLEM Primary Care Physician: Rin Rivera APPLICATIONS ENGINEER MANUFACTURING, APPLICATIONS ENGINEER MANUFACTURING-C [Primary Care Provider] - Prior records reviewed: Yes Past Medical History: - - Seizures, factor V Leiden, TIA, stroke Surgical History: appendectomy, cholecystectomy, hysterectomy, - - x2, hysterectomy, cholecystectomy, appendectomy, tonsillectomy and adenectomy, Shaq filter placed. Smoking Status: Current every day smoker - Family History Paternal Family History: Reports: Hypertension, - Maternal Family History: Reports: Unknown Review of Systems General: Denies: Chills, Fever, Sweats Eyes: Denies: Visual changes - bilaterally, Diplopia ENT: Denies: Rhinorrhea, Sore throat Cardiovascular: Denies: Chest pain, Palpitations Respiratory: Denies: Dyspnea, Cough, Dyspnea on exertion Gastrointestinal: Reports: Abdominal pain, Hematochezia. Denies: Nausea, Vomiting, Diarrhea, Melena Genitourinary: Denies: Dysuria, Hematuria, Frequency Musculoskeletal: Denies: Back pain, Extremity Pain Skin: Denies: Rash, Wounds Neurological: Denies: Headache, Weakness, Numbness Physical Exam Vital Signs/Narrative: Vital Signs Temp Pulse Resp BP Pulse Ox 10/09/20 13:25 96.4 F L 91 17 126/88 H 98 Inital Vital Signs reviewed: Yes General: Well nourished, Well developed, No Acute Distress Head: Normocephalic, Atraumatic Eyes: Perrl, EOMI ENT: Moist mucous membranes, No rhinorrhea Neck: Supple, Nontender Cardiovascular: Regular rate, Regular rhythm, No murmurs Respiratory: No distress, CTA bilaterally, Chest nontender Abdomen: Soft, Nontender, Nondistended, Normal bowel sounds Back: Nontender, Normal Inspection Extremities: Nontender, No edema Skin: Normal color, No rash Neurological: Alert, Oriented x3, Cranial nerves II-XII grossly intact, Normal Strength, Normal Sensation Psychological: Normal affect, Normal Mood Diagnostic/Tx/Re-eval Clinical Impression(s) from Imaging Studies Abdomen/Pelvis CT 10/09/20 15:36 IMPRESSION: Suspect constipation. Electronically Signed: Edwin Bolaños MD at 16:05 EST Tel , Service support , Abnormal Lab Results 10/09/20 10/09/20 10/09/20 13:55 14:40 14:40 WBC 6.3 RBC 4.61 Hgb 14.5 Hct 44.0 MCV 95.4 MCH 31.5 MCHC 33.0 RDW Std Deviation 40.4 RDW Coeff of Megan 11.7 Plt Count 274 MPV 8.5 Immature Gran % (Auto) 0.300 Neut % (Auto) 56.0 Lymph % (Auto) 36.0 Summers % (Auto) 5.7 Eos % (Auto) 1.4 Baso % (Auto) 0.6 Absolute Neuts (auto) 3.5 Absolute Lymphs (auto) 2.26 Nucleated RBC % 0 PT Cancelled INR Cancelled Sodium Potassium Chloride Carbon Dioxide Anion Gap BUN Creatinine Estim Creat Clear Calc Est GFR (MDRD) Af Amer Est GFR (MDRD) Non-Af BUN/Creatinine Ratio Glucose Calcium Total Bilirubin AST ALT Alkaline Phosphatase Total Protein Albumin Globulin Albumin/Globulin Ratio Urine Color Yellow Urine Clarity Sl. Cloudy Urine pH 7.0 Ur Specific Canvas 1.010 Urine Protein Negative Urine Glucose (UA) Normal Urine Ketones Negative Urine Occult Blood Negative Urine Nitrite Negative Urine Bilirubin Negative Urine Urobilinogen Normal Ur Leukocyte Esterase 25 H Urine RBC 0 SEEN Urine WBC 0-5 SEEN Ur Squamous Epith Cells 0-5 SEEN Amorphous Sediment 1+ PHOS Urine Bacteria 0 SEEN Urine Mucus 0 SEEN 10/09/20 10/09/20 14:40 15:30 WBC RBC Hgb Hct MCV MCH MCHC RDW Std Deviation RDW Coeff of Megan Plt Count MPV Immature Gran % (Auto) Neut % (Auto) Lymph % (Auto) Summers % (Auto) Eos % (Auto) Baso % (Auto) Absolute Neuts (auto) Absolute Lymphs (auto) Nucleated RBC % PT INR Sodium Cancelled 142 Potassium Cancelled 4.1 Chloride Cancelled 113 H Carbon Dioxide Cancelled 26.0 Anion Gap Cancelled 3 L BUN Cancelled 13 Creatinine Cancelled 0.89 Estim Creat Clear Calc Cancelled 66.03 Est GFR (MDRD) Af Amer Cancelled 88 Est GFR (MDRD) Non-Af Cancelled 73 BUN/Creatinine Ratio Cancelled 14.6 Glucose Cancelled 88 Calcium Cancelled 8.5 Total Bilirubin Cancelled 0.20 AST Cancelled 19 ALT Cancelled 50 Alkaline Phosphatase Cancelled 148 H Total Protein Cancelled 6.7 Albumin Cancelled 3.7 Globulin Cancelled 3.0 Albumin/Globulin Ratio Cancelled 1.2 Urine Color Urine Clarity Urine pH Ur Specific Canvas Urine Protein Urine Glucose (UA) Urine Ketones Urine Occult Blood Urine Nitrite Urine Bilirubin Urine Urobilinogen Ur Leukocyte Esterase Urine RBC Urine WBC Ur Squamous Epith Cells Amorphous Sediment Urine Bacteria Urine Mucus - Medical Decision Making Patient presents with abdominal cramping and one episode of red blood mixed with stool. Her abdomen is soft and nontender. She is on Coumadin. She had no further bleeding since. IV was established. Hemogram was unremarkable. She is not anemic. The patient underwent noncontrast CT which shows constipation without acute abnormality. I do feel this is likely the cause. I do not suspect a dangerous cause of her bleeding. The patient will be treated with magnesium citrate and Colace. She does have an ED care plan therefore no analgesics were given especially as I do feel this will exacerbate her constipation. She will be discharged home. Impression 1. Constipation 2. Stable rectal bleeding-resolved ED Disposition - Plan for ED Patient: Instructions: ED Lower GI Bleeding (Stable) Prescriptions: Dicyclomine HCl [Bentyl] 20 mg PO TIDAC #20 cap Prescription Printed Docusate Sodium [Colace] 100 mg PO DAILY #20 cap Prescription Printed Referrals: Rin Rivera NP, APPLICATIONS ENGINEER MANUFACTURING-C [Primary Care Provider] -
--- NOTE | 2020-10-09 13:44 | CM.ED ---
SOCIAL WORK Active ED Care Plan Updated Dr. Mims patient with active ED Care Plan. Reviewed with Dr. Mims and nursing. This worker to remain available for needs. Joyce Aguilera, CLINICAL INFORMATICS DIRECTOR, GERMAN INSTRUCTOR
[2020-10-09 14:27] LABS: Bacteria 0 SEEN /hpf (None Seen); Mucous, Urine 0 SEEN /hpf (<or=2+); Red Blood Cells-Urine 0 SEEN /hpf (0-5)
[2020-10-09 14:30] LABS: Color, Urine Yellow (Yellow); Glucose, Dipstick Normal (Normal); Ketone-Dipstick Negative (Negative); Leukocyte Esterase-Dipstick 25 /ul (Negative); Nitrite-Dipstick Negative (Negative); Occult Blood-Urine Negative /ul (Negative); Protein-Dipstick Negative (Negative); Urine Bilirubin Dipstick Negative (Negative); Urine Clarity Sl. Cloudy (Clear); Urine Urobilinogen Normal (Normal)
[2020-10-09 14:39] LABS: Squamous Epithelial Cells - UA 0-5 SEEN /hpf (5-10); White Blood Cells 0-5 SEEN /hpf (0-5)
[2020-10-09 14:40] LABS: Amorphous Sediment 1+ PHOS
[2020-10-09] MEDS: Ondansetron 4 MG/2 ML Vial IV (14:41)
[2020-10-09] MEDS: 0.9% Normal Saline 1,000 ML 1000 ML IV (14:41)
[2020-10-09 14:47] LABS: Absolute Lymphocyte Count 2.26 X10^3/uL (0.83-4.51); Absolute Neutrophil Count 3.5 X10^3/uL (2.0-7.7); Basophil# 0.04 X10^3/uL; Basophil% 0.6 % (0-1); Eosinophil# 0.09 X10^3/uL; Eosinophils% 1.4 % (0-5); Hemoglobin 14.5 g/dL (12.0-15.0); Lymphocyte # 2.26 X10^3/ul (4.0); Mean Corpuscular Hgb 31.5 pg (27.0-32.0); Mean Corpuscular Volume 95.4 fL (81-99); Mean Platelet Vol. 8.5 fl (6.2-12.0); Monocyte# 0.36 X10^3/uL; Monocyte% 5.7 % (0-10); NRBC Flagged by Analyzer 0 % (0-5); Platelet Count 274 K/mm3 (150-450); RBC Distribution Width CV 11.7 % (11.6-14.6); RBC Distribution Width SD 40.4 fl (35.1-43.9); Red Blood Count 4.61 M/mm3 (4.2-5.4); White Blood Count 6.3 K/mm3 (4.4-11.0)
--- NOTE | 2020-10-09 15:36 | CT_ITS ---
STUDY: CT ABDOMEN AND PELVIS WITHOUT CONTRAST REASON FOR EXAM: Female, 44 years old. ABD PAIN/BLOOD IN STOOL/ON COUMADIN. Prior cholecystectomy RADIATION DOSAGE (If Supplied By Facility): CTDIvol = ( 13.84 ) mGy, DLP = ( 661.55 ) mGycm TECHNIQUE: Transaxial images were obtained from the dome of the diaphragm to the symphysis pubis without oral contrast, and without intravenous contrast. Sagittal and coronal images were reconstructed. Individualized dose optimization techniques were used for this CT. COMPARISON: 09/21/2018 FINDINGS: The visualized lung bases are unremarkable. The visualized portions of the heart are within normal limits. Normal liver. There are surgical clips in the gallbladder fossa consistent with a prior cholecystectomy. Normal spleen. Normal pancreas. Normal bilateral adrenal glands. Normal right kidney. Normal left kidney. Normal visualized stomach. Normal small intestine. Large amount of stool throughout the colon suggestive of constipation. There are surgical clips in the region of the appendix consistent with a prior appendectomy. Normal abdominal aorta. There is an IVC filter in place. Normal retroperitoneum. Normal urinary bladder. Normal abdominal wall. Normal osseous structures. CT/Abdomen/Pelvis without Cont IMPRESSION: Suspect constipation. Electronically Signed: Edwin Bolaños MD at 16:05 EST Tel , Service support ,
[2020-10-09 15:57] LABS: ALB/GLOB Ratio 1.2 RATIO (0.9-2.4); AST(SGOT) 19 U/L (15-37); Alanine Aminotransfer ALT/SGPT 50 U/L (13-56); Albumin, Serum 3.7 g/dL (3.2-5.0); Alkaline Phosphatase 148 U/L (45-117); Anion Gap 3 (5-15); BUN 13 mg/dL (7-18); BUN/Creat Ratio 14.6 RATIO (10-20); Calcium,Total 8.5 mg/dL (8.5-10.1); Chloride 113 mmol/L (98-107); Creatinine, Serum 0.89 mg/dL (0.55-1.02); EST Glomerular Filtration Rate 73 mL/min (>60); Est Glom Filt Rate - Afr Amer 88 mL/min (>60); Estimated Creatinine Clearance 66.03 ml/min; Glucose 88 mg/dL (74-106); Potassium 4.1 mmol/L (3.5-5.1); Protein, Total 6.7 g/dL (6.4-8.2); Sodium Level 142 mmol/L (136-145)
[2020-10-09 16:22] LABS: International Normalized Ratio 3.4; Prothrombin Time (Protime)PT. 34.1 SECONDS (11.7-14.9)
[2020-10-09] MEDS: Magnesium Citrate 300 ML PO (16:48)
== END 2020-10-09 16:50 | disposition home or self-care (01) ==
LOC: ED 15:23
PROVIDERS: Emergency Provider Emergency Medicine; PCP Nurse Practitioner Family
DX: K59.00 Constipation, unspecified (principal); K62.5 Hemorrhage of anus and rectum; D68.51 Activated protein C resistance; G40.909 Epilepsy, unspecified, not intractable, without status epilepticus; F17.200 Nicotine dependence, unspecified, uncomplicated; Z79.01 Long term (current) use of anticoagulants; Z82.49 Family history of ischemic heart disease and other diseases of the circulatory system; Z86.73 Personal history of transient ischemic attack (TIA), and cerebral infarction without residual deficits; Z87.19 Personal history of other diseases of the digestive system; Z88.0 Allergy status to penicillin; Z88.2 Allergy status to sulfonamides; Z88.8 Allergy status to other drugs, medicaments and biological substances; Z90.49 Acquired absence of other specified parts of digestive tract; Z90.710 Acquired absence of both cervix and uterus
CPT/HCPCS: 36415; 74176; 80053; 81001; 85025; 85610; 96361; 96374; 99284; J7030; A4216; J2405

== ENCOUNTER 2020-12-15 14:50 | Emergency (ER) | payer MEDICARE, MEDICAID, SELFPAY ==
[2020-12-15 14:50] VITALS: BP 108/73; PULSE 72; RESP 16; TEMP 36.1; O2SAT 99; BMI 35.1
--- NOTE | 2020-12-15 16:09 | ED.VIS.GEN ---
History of Present Illness Chief Complaint: Abd Pain Informant: Patient Narrative: 44-year-old female presents with upper abdominal discomfort and vomiting since this morning. Patient reports that she has had prior appendectomy and cholecystectomy. She has had pancreatitis in the past. She reports around 630 this morning her symptoms began. She was able to tolerate some p.o. intake around 9 AM. No fevers. Patient has a care plan. - Past Medical History (1) Anxiety Status: Chronic (2) Depression Status: Chronic (3) Factor V Leiden mutation Status: Chronic (4) History of alcohol abuse Status: Chronic (5) History of drug abuse Status: Chronic (6) History of pulmonary embolus (PE) Status: Chronic Comment: lifelong coumadin (7) Hyperlipidemia Status: Chronic (8) Hypertension Status: Chronic (9) Obesity (BMI 30.0-34.9) Status: Chronic (10) Presence of IVC filter Status: Chronic (11) Seizure disorder Status: Chronic Past Medical History - Allergies and Home Meds Allergies/Adverse Reactions: Allergies gabapentin [From Neurontin] Allergy (Verified 12/15/20 14:51) Rash morphine Allergy (Verified 12/15/20 14:51) HYPOTENSION Penicillins Allergy (Verified 12/15/20 14:51) Rash Sulfa (Sulfonamide Antibiotics) Allergy (Verified 12/15/20 14:51) Rash PT STATES ONLY HAPPENED ONCE BUT HAS TAKEN SINCE W/ NO PROBLEM Primary Care Physician: Rin Rivera FLAME HARDENING MACHINE SETTER, FLAME HARDENING MACHINE SETTER-C [Primary Care Provider] - Surgical History: appendectomy, cholecystectomy, hysterectomy, - - x2, hysterectomy, cholecystectomy, appendectomy, tonsillectomy and adenectomy, Shaq filter placed. Smoking Status: Current every day smoker Drugs: - - currently denies - Family History Paternal Family History: Reports: Hypertension, - Maternal Family History: Reports: Unknown Review of Systems General: Denies: Chills, Fever, Sweats Eyes: Denies: Visual changes - bilaterally, Diplopia ENT: Denies: Rhinorrhea, Sore throat Cardiovascular: Denies: Chest pain, Palpitations Respiratory: Denies: Dyspnea, Cough, Dyspnea on exertion Gastrointestinal: Reports: Abdominal pain, Nausea, Vomiting. Denies: Diarrhea, Constipation, Melena, Hematochezia Genitourinary: Denies: Dysuria, Hematuria, Frequency Musculoskeletal: Denies: Back pain, Extremity Pain Skin: Denies: Rash, Wounds Neurological: Denies: Headache, Weakness, Numbness Physical Exam Vital Signs/Narrative: Vital Signs Temp Pulse Resp BP Pulse Ox 12/15/20 14:50 97 F L 72 16 108/73 99 Inital Vital Signs reviewed: Yes General: Well nourished, Well developed, No Acute Distress Head: Normocephalic, Atraumatic Eyes: Perrl, EOMI ENT: Moist mucous membranes, No rhinorrhea Neck: Supple, Nontender Cardiovascular: Regular rate, Regular rhythm, No murmurs Respiratory: No distress, CTA bilaterally, Chest nontender Abdomen: Soft, Nondistended, Normal bowel sounds, Tender - Out of proportion to examination Back: Nontender, Normal Inspection Extremities: Nontender, No edema Skin: Normal color, No rash Neurological: Alert, Oriented x3, Cranial nerves II-XII grossly intact, Normal Strength, Normal Sensation Psychological: Normal affect, Normal Mood Diagnostic/Tx/Re-eval Laboratory Last Values WBC 5.1 K/mm3 (4.4-11.0) 12/15/20 16:10 RBC 4.16 M/mm3 (4.2-5.4) L 12/15/20 16:10 Hgb 13.5 g/dL (12.0-15.0) 12/15/20 16:10 Hct 44.0 % (37-47) 12/15/20 16:10 MCV 105.8 fL (81-99) H 12/15/20 16:10 MCH 32.5 pg (27.0-32.0) H 12/15/20 16:10 MCHC 30.7 g/dL (32-36) L 12/15/20 16:10 RDW Std Deviation 49.6 fl (35.1-43.9) H 12/15/20 16:10 RDW Coeff of Megan 12.7 % (11.6-14.6) 12/15/20 16:10 Plt Count 280 K/mm3 (150-450) 12/15/20 16:10 MPV 8.6 fl (6.2-12.0) 12/15/20 16:10 Immature Gran % (Auto) 0.200 % (0.0-0.9) 12/15/20 16:10 Neut % (Auto) 46.6 % (47-70) L 12/15/20 16:10 Lymph % (Auto) 43.0 % (19-41) H 12/15/20 16:10 Howell % (Auto) 6.3 % (0-10) 12/15/20 16:10 Eos % (Auto) 3.1 % (0-5) 12/15/20 16:10 Baso % (Auto) 0.8 % (0-1) 12/15/20 16:10 Absolute Neuts (auto) 2.4 X10^3/uL (2.0-7.7) 12/15/20 16:10 Absolute Lymphs (auto) 2.20 X10^3/uL (0.83-4.51) 12/15/20 16:10 Nucleated RBC % 0 % (0-5) 12/15/20 16:10 Sodium 143 mmol/L (136-145) 12/15/20 16:40 Potassium 4.1 mmol/L (3.5-5.1) 12/15/20 16:40 Chloride 113 mmol/L (98-107) H 12/15/20 16:40 Carbon Dioxide 26.0 mmol/L (21.0-32.0) 12/15/20 16:40 Anion Gap 4 (5-15) L 12/15/20 16:40 BUN 15 mg/dL (7-18) 12/15/20 16:40 Creatinine 0.86 mg/dL (0.55-1.02) 12/15/20 16:40 Estim Creat Clear Calc 68.33 ml/min 12/15/20 16:40 Est GFR (MDRD) Af Amer 92 mL/min (>60) 12/15/20 16:40 Est GFR (MDRD) Non-Af 76 mL/min (>60) 12/15/20 16:40 BUN/Creatinine Ratio 17.5 RATIO (10-20) 12/15/20 16:40 Glucose 130 mg/dL (74-106) H 12/15/20 16:40 Calcium 8.4 mg/dL (8.5-10.1) L 12/15/20 16:40 Total Bilirubin 0.20 mg/dL (0.20-1.00) 12/15/20 16:40 AST 15 U/L (15-37) 12/15/20 16:40 ALT 54 U/L (13-56) 12/15/20 16:40 Alkaline Phosphatase 139 U/L (45-117) H 12/15/20 16:40 Total Protein 6.5 g/dL (6.4-8.2) 12/15/20 16:40 Albumin 3.4 g/dL (3.2-5.0) 12/15/20 16:40 Globulin 3.1 g/dL (2.2-4.2) 12/15/20 16:40 Albumin/Globulin Ratio 1.1 RATIO (0.9-2.4) 12/15/20 16:40 Lipase 74 U/L (73-393) 12/15/20 16:40 - Medical Decision Making Received Zofran no more vomiting. White count is normal. Lipase normal. Liver enzymes are nonobstructive. Believe the patient can be safely discharged home write a prescription for Zofran return if worsening or concerns ED Disposition - Plan for ED Patient: Disposition: Home or Assisted Living Diagnosis: Vomiting, Abdominal pain Instructions: ED Vomiting (Adult) Prescriptions: Ondansetron [Zofran Odt] 4 mg PO Q6H PRN PRN #15 tablet PRN Reason: Nausea Prescription Printed Referrals: Rin Rivera FLAME HARDENING MACHINE SETTER, FLAME HARDENING MACHINE SETTER-C [Primary Care Provider] - 1-2 Days if not improving
[2020-12-15] MEDS: Ondansetron 4 MG/2 ML Vial IV (16:14)
[2020-12-15 16:23] LABS: Absolute Neutrophil Count 2.4 X10^3/uL (2.0-7.7); Basophil# 0.04 X10^3/uL; Basophil% 0.8 % (0-1); Eosinophil# 0.16 X10^3/uL; Eosinophils% 3.1 % (0-5); Hemoglobin 13.5 g/dL (12.0-15.0); Mean Corp Hgb Conc 30.7 g/dL (32-36); Mean Corpuscular Hgb 32.5 pg (27.0-32.0); Mean Corpuscular Volume 105.8 fL (81-99); Mean Platelet Vol. 8.6 fl (6.2-12.0); Monocyte# 0.32 X10^3/uL; Monocyte% 6.3 % (0-10); NRBC Flagged by Analyzer 0 % (0-5); Neutrophil # 2.39 X10^3/uL (2.7-7.7); Neutrophil % 46.6 % (47-70); Platelet Count 280 K/mm3 (150-450); RBC Distribution Width CV 12.7 % (11.6-14.6); RBC Distribution Width SD 49.6 fl (35.1-43.9); Red Blood Count 4.16 M/mm3 (4.2-5.4); White Blood Count 5.1 K/mm3 (4.4-11.0)
[2020-12-15 17:05] LABS: ALB/GLOB Ratio 1.1 RATIO (0.9-2.4); AST(SGOT) 15 U/L (15-37); Alanine Aminotransfer ALT/SGPT 54 U/L (13-56); Albumin, Serum 3.4 g/dL (3.2-5.0); Alkaline Phosphatase 139 U/L (45-117); Anion Gap 4 (5-15); BUN 15 mg/dL (7-18); BUN/Creat Ratio 17.5 RATIO (10-20); Calcium,Total 8.4 mg/dL (8.5-10.1); Chloride 113 mmol/L (98-107); Creatinine, Serum 0.86 mg/dL (0.55-1.02); EST Glomerular Filtration Rate 76 mL/min (>60); Est Glom Filt Rate - Afr Amer 92 mL/min (>60); Estimated Creatinine Clearance 68.33 ml/min; Globulin 3.1 g/dL (2.2-4.2); Glucose 130 mg/dL (74-106); Lipase 74 U/L (73-393); Potassium 4.1 mmol/L (3.5-5.1); Protein, Total 6.5 g/dL (6.4-8.2); Sodium Level 143 mmol/L (136-145)
[2020-12-15 17:36] VITALS: BP 98/62; PULSE 52; RESP 15; O2SAT 96
== END 2020-12-15 17:37 | disposition home or self-care (01) ==
PROVIDERS: Emergency Provider Emergency Medicine; PCP Nurse Practitioner Family
DX: R10.9 Unspecified abdominal pain (principal); R11.10 Vomiting, unspecified; F41.9 Anxiety disorder, unspecified; F32.9 Major depressive disorder, single episode, unspecified; D68.51 Activated protein C resistance; E78.5 Hyperlipidemia, unspecified; I10 Essential (primary) hypertension; E66.9 Obesity, unspecified; Z86.711 Personal history of pulmonary embolism; Z79.01 Long term (current) use of anticoagulants; G40.909 Epilepsy, unspecified, not intractable, without status epilepticus; F17.200 Nicotine dependence, unspecified, uncomplicated; Z90.49 Acquired absence of other specified parts of digestive tract; Z68.34 Body mass index [BMI] 34.0-34.9, adult
CPT/HCPCS: 80053; 83690; 85025; 96374; 99285; A4216; J2405

== ENCOUNTER 2021-02-28 14:52 | Emergency (ER) | payer MEDICARE, SELFPAY ==
[2021-02-28 14:53] VITALS: BP 127/76; PULSE 65; RESP 16; TEMP 36.2; O2SAT 97; BMI 34.7
--- NOTE | 2021-02-28 15:06 | ED.RN ---
PTS S.O. REFUSED TO WEAR A MASK AT THE ENTRANCE TO BE THE SUPPORT PERSON. PT ANGRILY STATES THIS BULLSHIT IS OVER AND HE IS NOT WEARING IT. THEN STATES THE MANDATE IS DROPPED. EXPLAINED THAT IT IS NOT THE CASE IN THE FACILITY AND IT IS REQUIRED. EXPLAINED HE IS ENTERING A HOSPITAL AND THERE ARE SICK PEOPLE HERE. INFORMED HIM THAT THE PT CAN COMMUNICATE BY CELL PHONE AND HE WOULD NOT BE ALLOWED TO ENTER WITHOUT A MASK AND IT NEEDS TO BE WORN APPROPRIATELY AT ALL TIMES. PT RELUCTANTLY PUT THE MASK ON.
--- NOTE | 2021-02-28 15:12 | EDS_ITS ---
HPI History of Present Illness Chief Complaint: Fatigue Informant: patient Onset/Context/Timing Onset: Today Current Severity: Mild Maximum Severity: Mild Narrative Narrative: Patient presents secondary to excessive fatigue and sleepiness that she has noted today. She has noted increased frequency of tremors or jerking motions over the last month. 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 Her neurologist yesterday ordered levels of her seizure medication, but these were apparently sent out test and results are not back yet. Patient denies pain. She does report a recent cough with green sputum production and last week had a sore throat. No fever has been noted. [facility] Medical History (Updated 02/28/21 @ 16:[address] Lynn Morton MD) Anxiety Depression Factor V Leiden mutation History of pancreatitis History of pulmonary embolus (PE) Hyperlipidemia Hypertension Presence of IVC filter Seizure disorder Home Medications furosemide 40 mg PO DAILY 09/10/16 [History Last Taken 09/09/19] potassium chloride 20 meq PO BID 09/10/16 [History Last Taken 09/09/19] valacyclovir [Valtrex] 500 mg PO DAILY 10/25/18 [History Last Taken 09/09/19] warfarin 2.5 mg PO SUMOWEFRSA 04/17/19 [History Last Taken 09/09/19] venlafaxine 150 mg PO DAILY 05/25/19 [History Last Taken 09/09/19] melatonin 10 mg PO QHS 05/26/19 [History Last Taken 09/08/19] ondansetron 4 mg PO Q8H PRN PRN #10 tab 07/04/20 [Rx Last Taken Unknown] lacosamide 100 mg PO DAILY 10/09/20 [History Last Taken Unknown] lacosamide 200 mg PO QHS 10/09/20 [History Last Taken Unknown] magnesium oxide 400 mg PO DAILY 10/09/20 [History Last Taken Unknown] warfarin 5 mg PO TUTH 10/09/20 [History Last Taken Unknown] azithromycin [Zithromax Z-Olegario] 250 mg PO DAILY #4 tab 02/28/21 [Rx Last Taken Unknown] dicyclomine 20 mg PO PRN PRN 02/28/21 [History Last Taken Unknown] docusate sodium 100 mg PO PRN PRN 02/28/21 [History Last Taken Unknown] Allergy/AdvReac Type Severity Reaction Status Date / Time gabapentin [From Neurontin] Allergy Rash Verified 02/28/21 14:52 morphine Allergy HYPOTENSION Verified 02/28/21 14:52 Penicillins Allergy Rash Verified 02/28/21 14:52 Sulfa (Sulfonamide Allergy Rash Verified 02/28/21 14:52 Antibiotics) Surgical History (Updated 02/28/21 @ 15:[address] Lynn Morton MD) History of appendectomy History of hysterectomy Hx of cholecystectomy Social History Smoking Status: Current every day smoker ROS ROS ED Constitutional Constitutional ED: Denies chills or fever(s) Eyes Eyes: Denies change in vision ENT ENT ED: Reports sore throat Cardiovascular Cardiovascular: Denies chest pain Respiratory/Chest Respiratory/Chest: Reports cough and sputum; Denies dyspnea Gastrointestinal Gastrointestinal: Denies abdominal pain, diarrhea, nausea or vomiting Genitourinary Genitourinary ED: Denies dysuria Musculoskeletal Musculoskeletal: Denies back pain Integumentary Denies rash Neurologic Neurologic: Reports other Details: Fatigue and sleepiness ; Denies headache(s) or weakness Psychiatric Psychiatric: Denies anxiety or depression Endocrine Endocrinology: Denies polydipsia or polyuria Allergic/Immunologic Allergic/Immunologic ED: Denies urticaria EXAM Physical Exam Const Vital Signs: 02/28/21 14:53 Temperature 97.2 F L Temperature Source Temporal Pulse Rate 65 Respiratory Rate 16 Blood Pressure 127/76 H Blood Pressure Mean 93 Pulse Ox 97 Oxygen Delivery Method Room Air Positive well nourished and well developed General Appearance ED: well developed HEENT Reports normocephalic and head/scalp atraumatic Eyes PERRL and EOMs intact bilaterally Neck supple Chest Wall inspection of chest normal and palpation of chest normal Resp normal respiratory effort and clear to auscultation bilaterally Cardio regular rate and regular rhythm GI normal to inspection, nondistended, normoactive bowel sounds Palpation: soft Back/Spine no CVA tenderness Extremity normal to inspection Neuro oriented x3 and no sensory deficits noted Sensorium / Orientation: alert Motor Exam: strength 5/5 throughout Psych mental status grossly normal Skin no rashes or lesions noted MDM MDM MDM Narrative Medical decision making narrative: Lab work and chest x-ray are ordered. Patient is given a 500 cc IV fluid bolus. Lab Data Attestation: I reviewed the patient's lab results. Labs: Laboratory Results - last 24 hr 02/28/21 02/28/21 02/28/21 15:30 15:30 15:30 WBC 3.2 L RBC 4.15 L Hgb 13.3 Hct 40.3 MCV 97.1 MCH 32.0 MCHC 33.0 RDW Std Deviation 41.8 RDW Coeff of Megan 11.8 Plt Count 250 MPV 8.5 Immature Gran % (Auto) 0.300 Neut % (Auto) 29.4 L Lymph % (Auto) 57.4 H [place] % (Auto) 10.4 H Eos % (Auto) 1.9 Baso % (Auto) 0.6 Absolute Neuts (auto) 0.9 L Absolute Lymphs (auto) 1.82 Nucleated RBC % 0 Differential Comment SCANNED PT INR Sodium 142 Potassium 4.1 Chloride 109 H Carbon Dioxide 25.0 Anion Gap 8 BUN 11 Creatinine 0.84 Estim Creat Clear Calc 72.26 Est GFR (MDRD) Af Amer 93 Est GFR (MDRD) Non-Af 77 BUN/Creatinine Ratio 13.0 Glucose 98 Calcium 8.6 Total Bilirubin 0.40 Direct Bilirubin 0.20 AST 291 H ALT 277 H Alkaline Phosphatase 219 H Ammonia 35.0 H Total Protein 6.6 Albumin 3.6 Globulin 3.0 02/28/21 15:50 WBC RBC Hgb Hct MCV MCH MCHC RDW Std Deviation RDW Coeff of Megan Plt Count MPV Immature Gran % (Auto) Neut % (Auto) Lymph % (Auto) [place] % (Auto) Eos % (Auto) Baso % (Auto) Absolute Neuts (auto) Absolute Lymphs (auto) Nucleated RBC % Differential Comment PT 22.2 H INR 2.0 Sodium Potassium Chloride Carbon Dioxide Anion Gap BUN Creatinine Estim Creat Clear Calc Est GFR (MDRD) Af Amer Est GFR (MDRD) Non-Af BUN/Creatinine Ratio Glucose Calcium Total Bilirubin Direct Bilirubin AST ALT Alkaline Phosphatase Ammonia Total Protein Albumin Globulin Radiography Chest X-Ray - ED: 1 View, Read by ED Physician and Chronic Changes Diagnostic Testing: Radiology Impression Chest X-Ray 02/28/21 15:55 IMPRESSION: Possible focal right basilar infiltrate medially. Electronically Signed: Sam Novoa DO at 16:30 EDT Tel [phone], Service support , Treatment and Re-Evaluation Comments:: On repeat evaluation patient is resting comfortably. Her blood work is reviewed with her. Her LFTs are elevated today. They were significantly elevated last June but then returned to normal. I advised her this may be a side effect of the Subutex she recently started taking. I encouraged her to talk to the doctor that is prescribing that for her and have her liver function test closely followed. She states they did not check her blood work prior to starting the medication. Portable chest x-ray per my interpretation was chronic changes. Radiologist feels there may be a mild infiltrate. Patient has had significant cough with green sputum and she will be covered with a course of Zithromax. Patient has not had significant myoclonic jerks while here in the emergency room. She had previously been on Ativan but is currently off of that stating that she is off all controlled substances now that she is on Subutex. I encouraged her to follow-up with her neurologist regarding these. Discharge Plan Triage Chief Complaint: Fatigue ED Provider: Lynn Morton Dx/Rx/DC Orders Clinical Impression: Pneumonia, Elevated liver function tests Instructions: ED Pneumonia (Adult), ED Weakness (Uncertain Cause) Prescriptions: New azithromycin [Zithromax Z-Olegario] 250 mg tablet 250 mg PO DAILY Qty: 4 RF: 0 No Action furosemide 40 MG tablet 40 mg PO DAILY RF: 0 potassium chloride 10 MEQ tablet 20 meq PO BID RF: 0 valacyclovir [Valtrex] 500 MG tablet 500 mg PO DAILY RF: 0 warfarin 2.5 MG tablet 2.5 mg PO SUMOWEFR RF: 0 venlafaxine 150 MG capsule 150 mg PO DAILY RF: 0 melatonin 3 MG capsule 10 mg PO QHS RF: 0 ondansetron 4 MG tablet 4 mg PO Q8H PRN PRN (Reason: Nausea) Qty: 10 RF: 0 warfarin 5 MG tablet 5 mg PO TUTH RF: 0 lacosamide 100 MG tablet 100 mg PO DAILY RF: 0 magnesium oxide 200 MG tablet 400 mg PO DAILY RF: 0 lacosamide 100 MG tablet 200 mg PO QHS RF: 0 docusate sodium 100 MG capsule 100 mg PO PRN PRN (Reason: Constipation) RF: 0 dicyclomine 10 MG capsule 20 mg PO PRN PRN (Reason: Abdominal Discomfort) RF: 0 Primary Care Provider: Rin Rivera NP Referrals: Rin Rivera NP, ASSISTANT CUST[employer]ER SERVICE MANAGER-C [Primary Care Provider] - 3-5 Days Activity Restrictions/Additional Instructions: As discussed, your liver function tests are elevated. Please follow-up with your physician or the prescriber of your Subutex. This will need to be closely followed. Disposition Disposition: Home, self care
[2021-02-28 15:38] LABS: Absolute Lymphocyte Count 1.82 X10^3/uL (0.83-4.51); Absolute Neutrophil Count 0.9 X10^3/uL (2.0-7.7); Basophil# 0.02 X10^3/uL; Basophil% 0.6 % (0-1); Eosinophil# 0.06 X10^3/uL; Eosinophils% 1.9 % (0-5); Hematocrit 40.3 % (37-47); Hemoglobin 13.3 g/dL (12.0-15.0); Lymphocyte # 1.82 X10^3/ul (0.83-4.51); Lymphocyte % 57.4 % (19-41); Mean Corpuscular Volume 97.1 fL (81-99); Mean Platelet Vol. 8.5 fl (6.2-12.0); Monocyte# 0.33 X10^3/uL; Monocyte% 10.4 % (0-10); NRBC Flagged by Analyzer 0 % (0-5); Neutrophil # 0.93 X10^3/uL (2.7-7.7); Neutrophil % 29.4 % (47-70); POSITIVE DIFFERENTIAL YES; Platelet Count 250 K/mm3 (150-450); RBC Distribution Width CV 11.8 % (11.6-14.6); RBC Distribution Width SD 41.8 fl (35.1-43.9); Red Blood Count 4.15 M/mm3 (4.2-5.4); White Blood Count 3.2 K/mm3 (4.4-11.0)
[2021-02-28 15:40] LABS: Differential Indicated SCAN CRITERIA MET
[2021-02-28 15:54] LABS: Differential Comment SCANNED
[2021-02-28 15:55] LABS: AST(SGOT) 291 U/L (15-37); Alanine Aminotransfer ALT/SGPT 277 U/L (13-56); Albumin, Serum 3.6 g/dL (3.2-5.0); Alkaline Phosphatase 219 U/L (45-117); Anion Gap 8 (5-15); BUN 11 mg/dL (7-18); Calcium,Total 8.6 mg/dL (8.5-10.1); Chloride 109 mmol/L (98-107); Creatinine, Serum 0.84 mg/dL (0.55-1.02); EST Glomerular Filtration Rate 77 mL/min (>60); Est Glom Filt Rate - Afr Amer 93 mL/min (>60); Estimated Creatinine Clearance 72.26 ml/min; Glucose 98 mg/dL (74-106); Potassium 4.1 mmol/L (3.5-5.1); Protein, Total 6.6 g/dL (6.4-8.2); Sodium Level 142 mmol/L (136-145)
--- NOTE | 2021-02-28 15:55 | RAD_ITS ---
STUDY: X-RAY CHEST REASON FOR EXAM: Female, 45 years old. Cough TECHNIQUE: Frontal view COMPARISON: 10/02/2018. FINDINGS: The lungs are expanded. Possible focal right basilar infiltrate medially. Normal size heart. Normal mediastinum and lance. Normal visualized pulmonary arteries. Normal visualized aortic arch and descending thoracic aorta. Normal visualized thoracic spine. Normal visualized ribs, clavicles, and shoulders. There is no demonstrated abnormality of the visualized soft tissue structures of the upper abdomen. RAD/Chest 1 View (Portable) IMPRESSION: Possible focal right basilar infiltrate medially. Electronically Signed: Sam Novoa DO at 16:30 EDT Tel [phone], Service support ,
[2021-02-28 16:11] LABS: Prothrombin Time (Protime)PT. 22.2 SECONDS (11.7-14.9)
[2021-02-28 16:32] LABS: Mucous, Urine 0 SEEN /hpf (<or=2+); Red Blood Cells-Urine 0 SEEN /hpf (0-5)
[2021-02-28 16:33] LABS: Color, Urine Yellow (Yellow); Glucose, Dipstick Normal (Normal); Ketone-Dipstick Negative (Negative); Leukocyte Esterase-Dipstick 25 /ul (Negative); Nitrite-Dipstick Negative (Negative); Occult Blood-Urine Negative /ul (Negative); Protein-Dipstick Negative (Negative); Urine Bilirubin Dipstick Negative (Negative); Urine Clarity Clear (Clear); Urine Urobilinogen Normal (Normal)
[2021-02-28 16:44] LABS: Bacteria RARE /hpf (None Seen); Squamous Epithelial Cells - UA 0-5 SEEN /hpf (5-10); White Blood Cells 0-5 SEEN /hpf (0-5)
[2021-02-28] MEDS: Azithromycin 250 MG Tablet 500 MG PO (16:55)
== END 2021-02-28 17:03 | disposition home or self-care (01) ==
PROVIDERS: Emergency Provider Emergency Medicine; PCP Nurse Practitioner Family
DX: J18.9 Pneumonia, unspecified organism (principal); R79.89 Other specified abnormal findings of blood chemistry; F17.200 Nicotine dependence, unspecified, uncomplicated; E78.5 Hyperlipidemia, unspecified; I10 Essential (primary) hypertension; D68.51 Activated protein C resistance; Z86.711 Personal history of pulmonary embolism; F32.9 Major depressive disorder, single episode, unspecified; F41.9 Anxiety disorder, unspecified; Z79.01 Long term (current) use of anticoagulants; Z87.19 Personal history of other diseases of the digestive system
CPT/HCPCS: 71045; 80048; 80076; 81001; 82140; 85025; 85610; 99285; J7030; A4216

== ENCOUNTER → 2021-03-23 12:39 | Outpatient (CLI) | payer MEDICARE, SELFPAY ==
[2021-02-28 14:53] VITALS: BMI 34.7
[2021-03-23 13:37] LABS: Absolute Lymphocyte Count 2.41 X10^3/uL (0.83-4.51); Absolute Neutrophil Count 4.2 X10^3/uL (2.0-7.7); Basophil# 0.04 X10^3/uL; Basophil% 0.5 % (0-1); Eosinophil# 0.17 X10^3/uL; Eosinophils% 2.3 % (0-5); Hematocrit 46.7 % (37-47); Hemoglobin 15.6 g/dL (12.0-15.0); Lymphocyte # 2.41 X10^3/ul (0.83-4.51); Lymphocyte % 32.5 % (19-41); Mean Corp Hgb Conc 33.4 g/dL (32-36); Mean Corpuscular Hgb 31.6 pg (27.0-32.0); Mean Corpuscular Volume 94.7 fL (81-99); Mean Platelet Vol. 8.6 fl (6.2-12.0); Monocyte# 0.59 X10^3/uL; NRBC Flagged by Analyzer 0 % (0-5); Neutrophil # 4.18 X10^3/uL (2.7-7.7); Neutrophil % 56.4 % (47-70); Platelet Count 295 K/mm3 (150-450); RBC Distribution Width CV 11.4 % (11.6-14.6); RBC Distribution Width SD 39.8 fl (35.1-43.9); Red Blood Count 4.93 M/mm3 (4.2-5.4); White Blood Count 7.4 K/mm3 (4.4-11.0)
[2021-03-23 14:00] LABS: AST(SGOT) 141 U/L (15-37); Alanine Aminotransfer ALT/SGPT 159 U/L (13-56); Albumin, Serum 3.9 g/dL (3.2-5.0); Alkaline Phosphatase 200 U/L (45-117); Anion Gap 6 (5-15); BUN 12 mg/dL (7-18); BUN/Creat Ratio 12.2 RATIO (10-20); Bilirubin, Direct 0.16 mg/dL (0.00-0.30); Calcium,Total 8.9 mg/dL (8.5-10.1); Chloride 105 mmol/L (98-107); Creatinine, Serum 0.99 mg/dL (0.55-1.02); EST Glomerular Filtration Rate 64 mL/min (>60); Est Glom Filt Rate - Afr Amer 78 mL/min (>60); Globulin 3.6 g/dL (2.2-4.2); Glucose 88 mg/dL (74-106); Potassium 4.8 mmol/L (3.5-5.1); Protein, Total 7.5 g/dL (6.4-8.2); Sodium Level 133 mmol/L (136-145)
[2021-03-24 09:08] LABS: HIV - WCH Non-Reactive (Nonreactive); Hepatitis B Surface Antibody Reactive; Hepatitis C Antibody Non-Reactive (Nonreactive); Syphilis Antibodies Non-reactive
[2021-03-25 16:08] LABS: Hepatitis B Core Ab Total Negative (Negative); Hepatitis Be Ag Negative (Negative); QNTFERON TB Mitogen Value > 10.00 IU/mL (.); QNTFERON TB Nil Value 0 IU/mL (.); QNTFERON TB1+ Ag Value 0.01 IU/mL (.); QNTFERON TB2+ Ag Value 0.02 IU/mL (.)
[2021-03-25 16:13] LABS: Hepatitis A AB, Total Negative (Negative); QNTIFERON TB Positive Criteria Negative (Negative)
== END ==
PROVIDERS: PCP Nurse Practitioner Family
DX: F11.20 Opioid dependence, uncomplicated (principal); F13.20 Sedative, hypnotic or anxiolytic dependence, uncomplicated; F12.10 Cannabis abuse, uncomplicated; F17.290 Nicotine dependence, other tobacco product, uncomplicated; G40.89 Other seizures
CPT/HCPCS: 36415; 80048; 80076; 85025; 86480; 86703; 86704; 86706; 86708; 86780; 86803; 87350

== ENCOUNTER 2021-04-18 20:25 | Emergency (ER) | payer MEDICARE, SELFPAY ==
[2021-04-18 20:26] VITALS: BP 128/89; PULSE 88; RESP 14; TEMP 37.2; O2SAT 98; BMI 34.2
--- NOTE | 2021-04-18 20:47 | EDS_ITS ---
HPI History of Present Illness Chief Complaint: Abscess Informant: patient Narrative Narrative: Patient is a 45-year-old female who presents to the emergency department for infection to the right side of her mouth. This is on the external portion of her face. She states that she picked off a small what she thought was acne on but it started to swell and become red and tender. She has been getting some drainage coming out of it. She states that she does have a history of abscess on her right leg before in the past. She is not sure if she is had a history of MRSA but thinks she has. She denies any fevers or chills. She did have a few episodes of vomiting initially when this started. She denies any chest pain or shortness of breath. She has not been taking anything for this. Patient has a history of opioid abuse and is currently on Suboxone. She denies any IV drug abuse. [facility] Medical History (Updated 04/18/21 @ 20:[address] Papo Doyle, ) Anxiety Depression Factor V Leiden mutation History of pancreatitis History of pulmonary embolus (PE) Hyperlipidemia Hypertension Presence of IVC filter Seizure disorder Home Medications furosemide 40 mg PO DAILY 09/10/16 [History Last Taken 09/09/19] potassium chloride 20 meq PO BID 09/10/16 [History Last Taken 09/09/19] valacyclovir [Valtrex] 500 mg PO DAILY 10/25/18 [History Last Taken 09/09/19] warfarin 2.5 mg PO SUMOWEFRSA 04/17/19 [History Last Taken 09/09/19] venlafaxine 150 mg PO DAILY 05/25/19 [History Last Taken 09/09/19] melatonin 10 mg PO QHS 05/26/19 [History Last Taken 09/08/19] ondansetron 4 mg PO Q8H PRN PRN #10 tab 07/04/20 [Rx Last Taken Unknown] lacosamide 100 mg PO DAILY 10/09/20 [History Last Taken Unknown] lacosamide 200 mg PO QHS 10/09/20 [History Last Taken Unknown] magnesium oxide 400 mg PO DAILY 10/09/20 [History Last Taken Unknown] warfarin 5 mg PO TUTH 10/09/20 [History Last Taken Unknown] azithromycin [Zithromax Z-Olegario] 250 mg PO DAILY #4 tab 02/28/21 [Rx Last Taken Unknown] dicyclomine 20 mg PO PRN PRN 02/28/21 [History Last Taken Unknown] docusate sodium 100 mg PO PRN PRN 02/28/21 [History Last Taken Unknown] Suboxone 04/18/21 [History Last Taken Unknown] doxycycline hyclate 100 mg PO BID 10 Days #20 cap 04/18/21 [Rx Last Taken Unknown] Allergy/AdvReac Type Severity Reaction Status Date / Time gabapentin [From Neurontin] Allergy Rash Verified 04/18/21 20:30 morphine Allergy HYPOTENSION Verified 04/18/21 20:30 Penicillins Allergy Rash Verified 04/18/21 20:30 Sulfa (Sulfonamide Allergy Rash Verified 04/18/21 20:30 Antibiotics) Surgical History History of appendectomy History of hysterectomy Hx of cholecystectomy Social History Smoking Status: Current every day smoker tobacco type: cigarettes ROS ROS ED Constitutional Constitutional ED: Denies chills or fever(s) Eyes Eyes: Denies change in vision ENT ENT ED: Denies epistaxis Cardiovascular Cardiovascular: Denies chest pain or palpitations Respiratory/Chest Respiratory/Chest: Denies cough or dyspnea Gastrointestinal Gastrointestinal: Denies abdominal pain or nausea Musculoskeletal Musculoskeletal: Denies back pain or neck pain Integumentary Reports abscess and rash Neurologic Neurologic: Denies dizziness, headache(s) or weakness EXAM Physical Exam Const Vital Signs: 04/18/21 20:26 Temperature 98.9 F Temperature Source Temporal Pulse Rate 88 Respiratory Rate 14 Blood Pressure 128/89 H Blood Pressure Mean 102 Pulse Ox 98 Oxygen Delivery Method Room Air Positive well nourished and well developed General Appearance ED: well developed and NAD HEENT Reports normocephalic, head/scalp atraumatic and moist mucous membranes HEENT Narrative: Oropharynx is clear. Uvula midline. Eyes PERRL and EOMs intact bilaterally Neck supple General: Negative for tenderness Resp normal respiratory effort and clear to auscultation bilaterally Auscultation: Negative for rales, rhonchi or wheezes Cardio regular rate, regular rhythm and no murmurs Extremity normal to inspection Neuro CN's II-XII intact bilaterally and no sensory deficits noted Sensorium / Orientation: alert Motor Exam: strength 5/5 throughout Psych mental status grossly normal Skin Skin Narrative: Patient has erythema, warmth and tenderness to the right portion of the mouth. No oral or mucosal involvement. There is some purulent drainage present. No underlying abscess present. MDM MDM MDM Narrative Medical decision making narrative: Patient presents the ED for infection to right side of her face. No underlying abscess requiring I&D here. We will write a prescription for doxycycline as she does have an allergy to sulfa and penicillins. Return precautions are reviewed with her including spreading of the rash, developing systemic symptoms, painful eye movements or difficulty swallowing or breathing. She understands and is agreeable this plan. Discharged home in stable condition. All questions were answered. Discharge Plan Triage Chief Complaint: Abscess ED Provider: Papo Doyle Dx/Rx/DC Orders Clinical Impression: Cellulitis of face Instructions: ED Cellulitis, Facial Prescriptions: New doxycycline hyclate 100 mg capsule 100 mg PO BID 10 Days Qty: 20 RF: 0 No Action furosemide 40 MG tablet 40 mg PO DAILY RF: 0 potassium chloride 10 MEQ tablet 20 meq PO BID RF: 0 valacyclovir [Valtrex] 500 MG tablet 500 mg PO DAILY RF: 0 warfarin 2.5 MG tablet 2.5 mg PO SUMOWEFRSA RF: 0 venlafaxine 150 MG capsule 150 mg PO DAILY RF: 0 melatonin 3 MG capsule 10 mg PO QHS RF: 0 ondansetron 4 MG tablet 4 mg PO Q8H PRN PRN (Reason: Nausea) Qty: 10 RF: 0 warfarin 5 MG tablet 5 mg PO TUTH RF: 0 lacosamide 100 MG tablet 100 mg PO DAILY RF: 0 magnesium oxide 200 MG tablet 400 mg PO DAILY RF: 0 lacosamide 100 MG tablet 200 mg PO QHS RF: 0 docusate sodium 100 MG capsule 100 mg PO PRN PRN (Reason: Constipation) RF: 0 dicyclomine 10 MG capsule 20 mg PO PRN PRN (Reason: Abdominal Discomfort) RF: 0 azithromycin [Zithromax Z-Olegario] 250 mg tablet 250 mg PO DAILY Qty: 4 RF: 0 Suboxone RF: 0 Primary Care Provider: Rin Rivera NP Referrals: Rin Rivera NP, [employer]BACKUP ADMINISTRATOR-C [Primary Care Provider] - 5-7 Days Disposition Disposition: Home, Self Care Discharge Date/Time: 04/18/21 21:05
[2021-04-18] MEDS: Doxycycline 100 MG CAPSULE PO (20:54)
== END 2021-04-18 21:05 | disposition home or self-care (01) ==
LOC: ED 21:00
PROVIDERS: Emergency Provider Emergency Medicine; PCP Nurse Practitioner Family
DX: L03.211 Cellulitis of face (principal); F17.210 Nicotine dependence, cigarettes, uncomplicated; Z90.49 Acquired absence of other specified parts of digestive tract; Z90.710 Acquired absence of both cervix and uterus; D68.51 Activated protein C resistance; E78.5 Hyperlipidemia, unspecified; F32.9 Major depressive disorder, single episode, unspecified; F41.9 Anxiety disorder, unspecified; I10 Essential (primary) hypertension; G40.909 Epilepsy, unspecified, not intractable, without status epilepticus; Z79.01 Long term (current) use of anticoagulants; Z79.899 Other long term (current) drug therapy; Z86.711 Personal history of pulmonary embolism; Z87.19 Personal history of other diseases of the digestive system
CPT/HCPCS: 99283

== ENCOUNTER 2021-04-25 14:58 | Emergency (ER) | payer MEDICARE, SELFPAY ==
[2021-04-25 14:59] VITALS: BP 122/77; PULSE 85; RESP 16; TEMP 37.1; O2SAT 97; BMI 35.0
[2021-04-25 15:01] VITALS: BP 122/77; PULSE 85; RESP 16; TEMP 37.1; O2SAT 97
[2021-04-25 16:14] LABS: Absolute Lymphocyte Count 2.06 X10^3/uL (0.83-4.51); Basophil# 0.05 X10^3/uL; Basophil% 1.1 % (0-1); Eosinophil# 0.17 X10^3/uL; Eosinophils% 3.6 % (0-5); Hematocrit 41.1 % (37-47); Hemoglobin 12.9 g/dL (12.0-15.0); Lymphocyte # 2.06 X10^3/ul (0.83-4.51); Lymphocyte % 43.9 % (19-41); Mean Corp Hgb Conc 31.4 g/dL (32-36); Mean Corpuscular Hgb 31.5 pg (27.0-32.0); Mean Corpuscular Volume 100.5 fL (81-99); Mean Platelet Vol. 8.2 fl (6.2-12.0); Monocyte# 0.37 X10^3/uL; Monocyte% 7.9 % (0-10); NRBC Flagged by Analyzer 0 % (0-5); Neutrophil % 42.6 % (47-70); Platelet Count 248 K/mm3 (150-450); RBC Distribution Width CV 11.7 % (11.6-14.6); RBC Distribution Width SD 42.7 fl (35.1-43.9); Red Blood Count 4.09 M/mm3 (4.2-5.4); White Blood Count 4.7 K/mm3 (4.4-11.0)
--- NOTE | 2021-04-25 16:23 | ED.VIS.GI ---
HPI HPI - GI History of Present Illness Chief Complaint: Abd Pain Narrative Narrative: Patient presenting with diarrhea for the last 2 days. She states she has had multiple episodes over the last 2 days and it has decreased today. Patient denies any fever or chills. She has nausea without vomiting but states she is always nauseous and takes Zofran at home. Patient has crampy abdominal pain and states that it is not localized. She admits to history of diverticulitis, C. difficile colitis, pancreatitis. Patient is on Coumadin for factor V Leiden and history of DVT/PE. Patient states he was told she has ulcerative colitis and states she was recently on dicyclomine and Flagyl at the beginning of the year which is about 7 to 8 months ago. Patient also complains of left lower extremity swelling but states she is on Coumadin and has been therapeutic. Her last INR check was 2.2 on Tuesday. Patient states he has an IVC filter as well. [facility] Medical History Anxiety Depression Factor V Leiden mutation History of pancreatitis History of pulmonary embolus (PE) Hyperlipidemia Hypertension Presence of IVC filter Seizure disorder Home Medications furosemide 40 mg PO DAILY 09/10/16 [History Last Taken 09/09/19] potassium chloride 20 meq PO BID 09/10/16 [History Last Taken 09/09/19] valacyclovir [Valtrex] 500 mg PO DAILY 10/25/18 [History Last Taken 09/09/19] warfarin 2.5 mg PO SUMOWEFRSA 04/17/19 [History Last Taken 09/09/19] venlafaxine 150 mg PO DAILY 05/25/19 [History Last Taken 09/09/19] melatonin 10 mg PO QHS 05/26/19 [History Last Taken 09/08/19] ondansetron 4 mg PO Q8H PRN PRN #10 tab 07/04/20 [Rx Last Taken Unknown] lacosamide 100 mg PO DAILY 10/09/20 [History Last Taken Unknown] lacosamide 200 mg PO QHS 10/09/20 [History Last Taken Unknown] magnesium oxide 400 mg PO DAILY 10/09/20 [History Last Taken Unknown] warfarin 5 mg PO TUTH 10/09/20 [History Last Taken Unknown] dicyclomine 20 mg PO PRN PRN 02/28/21 [History Last Taken Unknown] docusate sodium 100 mg PO PRN PRN 02/28/21 [History Last Taken Unknown] Suboxone 04/18/21 [History Last Taken Unknown] Allergy/AdvReac Type Severity Reaction Status Date / Time gabapentin [From Neurontin] Allergy Rash Verified 04/25/21 14:59 morphine Allergy HYPOTENSION Verified 04/25/21 14:59 Penicillins Allergy Rash Verified 04/25/21 14:59 Sulfa (Sulfonamide Allergy Rash Verified 04/25/21 14:59 Antibiotics) Surgical History History of appendectomy History of hysterectomy Hx of cholecystectomy Social History Smoking Status: Current every day smoker tobacco type: cigarettes ROS ROS ED Constitutional Constitutional ED: Denies chills or fever(s) ENT ENT ED: Denies rhinorrhea or sore throat Cardiovascular Cardiovascular: Denies chest pain or palpitations Respiratory/Chest Respiratory/Chest: Denies cough, dyspnea or sputum Gastrointestinal Gastrointestinal: Reports abdominal pain, diarrhea and nausea; Denies constipation, melena or vomiting Genitourinary Genitourinary ED: Denies dysuria or hematuria Musculoskeletal Musculoskeletal: Denies arthralgias or myalgias Integumentary Denies abscess or rash Neurologic Neurologic: Denies headache(s) or paresthesias EXAM Physical Exam Const Vital Signs: 04/25/21 14:59 04/25/21 15:01 04/25/21 17:52 Temperature 98.7 F 98.7 F Temperature Source Temporal Temporal Pulse Rate 85 85 78 Respiratory Rate 16 16 18 Blood Pressure 122/77 H 122/77 H 120/68 Blood Pressure Mean 92 92 85 Pulse Ox 97 97 97 Oxygen Delivery Method Room Air Room Air Room Air Positive obese General Appearance ED: NAD; Negative for pallor Nutritional Appearance: obese HEENT Reports TM's clear and moist mucous membranes normocephalic and atraumatic Tympanic Membrane ED: Yes TM's clear Eyes PERRL and EOMs intact bilaterally Resp normal respiratory effort and clear to auscultation bilaterally Cardio regular rate and regular rhythm GI non-distended GI Narrative: Generalized mild tenderness to palpation. There are no focal points of tenderness. Abdomen is nonperitoneal Palpation: soft Extremity Extremity Narrative: Mild increased edema over the left calf. Left calf compartments are soft. Left pedal pulses are 2+. No cords palpated. Neuro Sensorium / Orientation: alert and oriented to person Psych mental status grossly normal Skin General Skin Exam: Negative for jaundice or pallor Lesions: no lesions Rashes: no rashes MDM MDM MDM Narrative Medical decision making narrative: Patient presenting with diarrhea and diffuse crampy abdominal pain. Her blood work-up is unremarkable. Her LFTs are actually lower than previously. Creatinine is normal. Vital signs are stable and she is afebrile. Her PT/INR is therapeutic and I do not believe she needs a DVT study of her left lower extremity. Urinalysis is negative. C. difficile is negative. Given patient's findings I feel she is stable to be discharged home. She was offered antiemetics in the ED but declined this. She states she has Zofran at home. She does have a care plan so pain medication was withheld until I could find acute pathology which would warrant it. Given that she does not need a CT scans of the normal labs I will not give her pain medications. Patient will follow up with her regular physician outpatient. Impression: 1. Abdominal pain 2. Diarrhea Lab Data Attestation: I reviewed the patient's lab results. Labs: Laboratory Results - last 24 hr 04/25/21 04/25/21 04/25/21 16:05 16:05 16:05 WBC 4.7 RBC 4.09 L Hgb 12.9 Hct 41.1 MCV 100.5 H MCH 31.5 MCHC 31.4 L RDW Std Deviation 42.7 RDW Coeff of Megan 11.7 Plt Count 248 MPV 8.2 Immature Gran % (Auto) 0.900 Neut % (Auto) 42.6 L Lymph % (Auto) 43.9 H [place] % (Auto) 7.9 Eos % (Auto) 3.6 Baso % (Auto) 1.1 H Absolute Neuts (auto) 2.0 Absolute Lymphs (auto) 2.06 Nucleated RBC % 0 PT INR Sodium 140 Potassium 4.8 Chloride 108 H Carbon Dioxide 21.0 Anion Gap 11 BUN 14 Creatinine 0.89 Estim Creat Clear Calc 65.34 Est GFR (MDRD) Af Amer 87 Est GFR (MDRD) Non-Af 72 BUN/Creatinine Ratio 15.7 Glucose 95 Calcium 8.8 Magnesium 2.0 Total Bilirubin 0.20 AST 38 H ALT 111 H Alkaline Phosphatase 149 H Total Protein 6.6 Albumin 3.7 Globulin 2.9 Albumin/Globulin Ratio 1.3 Lipase 32 L Urine Color Urine Clarity Urine pH Ur Specific [place] Urine Protein Urine Glucose (UA) Urine Ketones Urine Occult Blood Urine Nitrite Urine Bilirubin Urine Urobilinogen Ur Leukocyte Esterase Urine RBC Urine WBC Ur Squamous Epith Cells Urine Bacteria Hyaline Casts Urine Mucus Urine Test Urine Opiates Screen Urine Methadone Screen Ur Barbiturates Screen Ur Phencyclidine Scrn Ur Amphetamines Screen U Methamphetamin-MDMA U Benzodiazepines Scrn Urine Cocaine Screen U Cannabinoids Screen Ur Drug Screen Comment Ethyl Alcohol < 3.0 04/25/21 04/25/21 04/25/21 17:04 17:40 17:40 WBC RBC Hgb Hct MCV MCH MCHC RDW Std Deviation RDW Coeff of Megan Plt Count MPV Immature Gran % (Auto) Neut % (Auto) Lymph % (Auto) [place] % (Auto) Eos % (Auto) Baso % (Auto) Absolute Neuts (auto) Absolute Lymphs (auto) Nucleated RBC % PT 23.0 H INR 2.1 Sodium Potassium Chloride Carbon Dioxide Anion Gap BUN Creatinine Estim Creat Clear Calc Est GFR (MDRD) Af Amer Est GFR (MDRD) Non-Af BUN/Creatinine Ratio Glucose Calcium Magnesium Total Bilirubin AST ALT Alkaline Phosphatase Total Protein Albumin Globulin Albumin/Globulin Ratio Lipase Urine Color Yellow Urine Clarity Sl. Cloudy Urine pH 7.0 Ur Specific [place] 1.010 Urine Protein Negative Urine Glucose (UA) Normal Urine Ketones Negative Urine Occult Blood Negative Urine Nitrite Negative Urine Bilirubin Negative Urine Urobilinogen Normal Ur Leukocyte Esterase 25 H Urine RBC 0-5 SEEN Urine WBC 0-5 SEEN Ur Squamous Epith Cells 0-5 SEEN Urine Bacteria 0 SEEN Hyaline Casts 0-5 SEEN Urine Mucus 0 SEEN Urine Test Negative Urine Opiates Screen NEGATIVE Urine Methadone Screen NEGATIVE Ur Barbiturates Screen NEGATIVE Ur Phencyclidine Scrn NEGATIVE Ur Amphetamines Screen NEGATIVE U Methamphetamin-MDMA NEGATIVE U Benzodiazepines Scrn NEGATIVE Urine Cocaine Screen NEGATIVE U Cannabinoids Screen NEGATIVE Ur Drug Screen Comment Ethyl Alcohol Discharge Plan Triage Chief Complaint: Abd Pain ED Provider: Dada Sherwood Dx/Rx/DC Orders Instructions: ED Abdominal Pain Unkn Cause Fem, ED Diarrhea, Unknown Cause Prescriptions: No Action furosemide 40 MG tablet 40 mg PO DAILY RF: 0 potassium chloride 10 MEQ tablet 20 meq PO BID RF: 0 valacyclovir [Valtrex] 500 MG tablet 500 mg PO DAILY RF: 0 warfarin 2.5 MG tablet 2.5 mg PO SUMOWE RF: 0 venlafaxine 150 MG capsule 150 mg PO DAILY RF: 0 melatonin 3 MG capsule 10 mg PO QHS RF: 0 ondansetron 4 MG tablet 4 mg PO Q8H PRN PRN (Reason: Nausea) Qty: 10 RF: 0 warfarin 5 MG tablet 5 mg PO TUTH RF: 0 lacosamide 100 MG tablet 100 mg PO DAILY RF: 0 magnesium oxide 200 MG tablet 400 mg PO DAILY RF: 0 lacosamide 100 MG tablet 200 mg PO QHS RF: 0 docusate sodium 100 MG capsule 100 mg PO PRN PRN (Reason: Constipation) RF: 0 dicyclomine 10 MG capsule 20 mg PO PRN PRN (Reason: Abdominal Discomfort) RF: 0 Suboxone RF: 0 Primary Care Provider: Rin Rivera NP Referrals: Rin Rivera NP, REGIONAL SALES CONSULTANT-C [Primary Care Provider] - Disposition Disposition: Home, Self Care Discharge Date/Time: 04/25/21 19:07
[2021-04-25 16:29] LABS: Alcohol, Blood (Medical)-Serum < 3.0 mg/dL
[2021-04-25 16:45] LABS: ALB/GLOB Ratio 1.3 RATIO (0.9-2.4); AST(SGOT) 38 U/L (15-37); Alanine Aminotransfer ALT/SGPT 111 U/L (13-56); Albumin, Serum 3.7 g/dL (3.2-5.0); Alkaline Phosphatase 149 U/L (45-117); Anion Gap 11 (5-15); BUN 14 mg/dL (7-18); BUN/Creat Ratio 15.7 RATIO (10-20); Calcium,Total 8.8 mg/dL (8.5-10.1); Chloride 108 mmol/L (98-107); Creatinine, Serum 0.89 mg/dL (0.55-1.02); EST Glomerular Filtration Rate 72 mL/min (>60); Est Glom Filt Rate - Afr Amer 87 mL/min (>60); Estimated Creatinine Clearance 65.34 ml/min; Globulin 2.9 g/dL (2.2-4.2); Glucose 95 mg/dL (74-106); Lipase 32 U/L (73-393); Potassium 4.8 mmol/L (3.5-5.1); Protein, Total 6.6 g/dL (6.4-8.2); Sodium Level 140 mmol/L (136-145)
[2021-04-25] MEDS: 0.9% Normal Saline 1,000 ML 1000 ML IV (16:52)
[2021-04-25 17:20] LABS: International Normalized Ratio 2.1
[2021-04-25 17:49] LABS: Bacteria 0 SEEN /hpf (None Seen); Mucous, Urine 0 SEEN /hpf (<or=2+)
[2021-04-25 17:50] LABS: Color, Urine Yellow (Yellow); Glucose, Dipstick Normal (Normal); Ketone-Dipstick Negative (Negative); Leukocyte Esterase-Dipstick 25 /ul (Negative); Nitrite-Dipstick Negative (Negative); Occult Blood-Urine Negative /ul (Negative); Protein-Dipstick Negative (Negative); Urine Bilirubin Dipstick Negative (Negative); Urine Clarity Sl. Cloudy (Clear); Urine Urobilinogen Normal (Normal)
[2021-04-25 17:52] VITALS: BP 120/68; PULSE 78; RESP 18; O2SAT 97
[2021-04-25 17:53] LABS: Internal QC Validated? YES +Cl - CLEAR BKGD; Pregnancy, Urine Negative Negative
[2021-04-25 18:00] LABS: Red Blood Cells-Urine 0-5 SEEN /hpf (0-5)
[2021-04-25 18:01] LABS: White Blood Cells 0-5 SEEN /hpf (0-5)
[2021-04-25 18:02] LABS: Hyaline Cast 0-5 SEEN /lpf (0-5)
[2021-04-25 18:03] LABS: Squamous Epithelial Cells - UA 0-5 SEEN /hpf (5-10)
[2021-04-25 18:07] LABS: Amphetamine Urine VISTA NEGATIVE (<1000 ng/mL); Barbiturate Urine VISTA NEGATIVE (< 200 ng/mL); Benzodiazepine Urine VISTA NEGATIVE (< 200 ng/mL); Cocaine Urine VISTA NEGATIVE (< 300 ng/mL); Ecstacy Urine VISTA NEGATIVE (< 500 ng/mL); Methadone Urine VISTA NEGATIVE (< 300 ng/mL); PCP Urine VISTA NEGATIVE (< 25 ng/mL); THC Urine VISTA NEGATIVE (< 50 ng/mL); Vista UDS pH Range 7
== END 2021-04-25 19:07 | disposition home or self-care (01) ==
PROVIDERS: Emergency Provider Student in an Organized Health Care Education/Training Program; PCP Nurse Practitioner Family
DX: R10.9 Unspecified abdominal pain (principal); R19.7 Diarrhea, unspecified; E66.9 Obesity, unspecified; F17.210 Nicotine dependence, cigarettes, uncomplicated; Z90.710 Acquired absence of both cervix and uterus; Z90.49 Acquired absence of other specified parts of digestive tract; D68.51 Activated protein C resistance; Z87.19 Personal history of other diseases of the digestive system; Z86.711 Personal history of pulmonary embolism; E78.5 Hyperlipidemia, unspecified; I10 Essential (primary) hypertension; F41.9 Anxiety disorder, unspecified; F32.9 Major depressive disorder, single episode, unspecified; G40.909 Epilepsy, unspecified, not intractable, without status epilepticus; Z79.01 Long term (current) use of anticoagulants; Z79.899 Other long term (current) drug therapy; Z86.718 Personal history of other venous thrombosis and embolism
CPT/HCPCS: 36415; 80053; 80307; 81001; 81025; 82077; 83690; 83735; 85025; 85610; 87177; 87209; 87493; 87506; 99283; J7030; A4216

== ENCOUNTER 2021-05-08 12:52 | Emergency (ER) | payer MEDICARE, SELFPAY ==
[2021-05-08 12:53] VITALS: BP 127/98; PULSE 92; RESP 18; TEMP 36.6; O2SAT 99; BMI 32.2
--- NOTE | 2021-05-08 13:32 | ED.RN ---
PT REPORTS SHE IS TIRED OF WAITING, AND IS LEAVING. REGISTRATION NOTIFIED. LWBS AT 1330.
== END 2021-05-08 13:30 ==
LOC: ED 13:36
PROVIDERS: PCP Nurse Practitioner Family
DX: R69 Illness, unspecified (principal)
CPT/HCPCS: 99282

== ENCOUNTER 2021-05-28 16:43 | Emergency (ER) | payer MEDICARE, SELFPAY ==
[2021-05-28 16:44] VITALS: BP 131/88; PULSE 91; RESP 14; TEMP 36.8; O2SAT 96; BMI 34.7
--- NOTE | 2021-05-28 18:37 | EX.ED.DYSGE1 ---
HPI History of Present Illness Chief Complaint: Nausea/Vomiting Informant: patient Onset/Context/Timing Onset: Today Current Severity: Mild Maximum Severity: Moderate Narrative Narrative: Patient just presents for medical clearance after having nausea and vomiting. Patient is currently anion a drug rehab program. She is on ZUBSOLV. She took a different dose than normal today as her doctors recently changed her medications and had a out of body experience. Patient states she just felt very weird and is not sure if is all panic related. Because of this she gave herself a dose of Narcan and then felt nauseated and had some stomach cramping. She states she still has some sweats and feels nauseated but has hydroxyzine and Zofran at home that she can take. She states she feels comfortable going home and treating herself if we do not feel she needs any further evaluation here. [facility] Medical History Anxiety Depression Factor V Leiden mutation History of pancreatitis History of pulmonary embolus (PE) Hyperlipidemia Hypertension Presence of IVC filter Seizure disorder Home Medications furosemide 40 mg PO DAILY 09/10/16 [History Last Taken 09/09/19] potassium chloride 20 meq PO BID 09/10/16 [History Last Taken 09/09/19] valacyclovir [Valtrex] 500 mg PO DAILY 10/25/18 [History Last Taken 09/09/19] warfarin 2.5 mg PO SUMOWEFRSA 04/17/19 [History Last Taken 09/09/19] venlafaxine 150 mg PO DAILY 05/25/19 [History Last Taken 09/09/19] melatonin 10 mg PO QHS 05/26/19 [History Last Taken 09/08/19] ondansetron 4 mg PO Q8H PRN PRN #10 tab 07/04/20 [Rx Last Taken Unknown] lacosamide 100 mg PO DAILY 10/09/20 [History Last Taken Unknown] lacosamide 200 mg PO QHS 10/09/20 [History Last Taken Unknown] magnesium oxide 400 mg PO DAILY 10/09/20 [History Last Taken Unknown] warfarin 5 mg PO TUTH 10/09/20 [History Last Taken Unknown] dicyclomine 20 mg PO PRN PRN 02/28/21 [History Last Taken Unknown] docusate sodium 100 mg PO PRN PRN 02/28/21 [History Last Taken Unknown] Suboxone 04/18/21 [History Last Taken Unknown] Allergy/AdvReac Type Severity Reaction Status Date / Time gabapentin [From Neurontin] Allergy Rash Verified 05/28/21 16:44 morphine Allergy HYPOTENSION Verified 05/28/21 16:44 Penicillins Allergy Rash Verified 05/28/21 16:44 Sulfa (Sulfonamide Allergy Rash Verified 05/28/21 16:44 Antibiotics) Surgical History History of appendectomy History of hysterectomy Hx of cholecystectomy Social History Smoking Status: Current every day smoker tobacco type: cigarettes ROS ROS ED Constitutional Constitutional ED: Denies chills or fever(s) Eyes Eyes: Denies change in vision ENT ENT ED: Denies sore throat Cardiovascular Cardiovascular: Denies chest pain Respiratory/Chest Respiratory/Chest: Denies cough or dyspnea Gastrointestinal Gastrointestinal: Reports abdominal pain, nausea and vomiting; Denies diarrhea Genitourinary Genitourinary ED: Denies dysuria Musculoskeletal Musculoskeletal: Denies back pain Integumentary Denies rash Neurologic Neurologic: Reports headache(s); Denies weakness Allergic/Immunologic Allergic/Immunologic ED: Denies urticaria EXAM Physical Exam Const Vital Signs: 05/28/21 16:44 Temperature 98.2 F Temperature Source Temporal Pulse Rate 91 Respiratory Rate 14 Blood Pressure 131/88 H Blood Pressure Mean 102 Pulse Ox 96 Oxygen Delivery Method Room Air Positive well nourished and well developed General Appearance ED: well developed HEENT Reports normocephalic and head/scalp atraumatic Eyes PERRL and EOMs intact bilaterally Neck supple Chest Wall inspection of chest normal and palpation of chest normal Resp normal respiratory effort and clear to auscultation bilaterally Cardio regular rate and regular rhythm GI normal to inspection, nondistended, normoactive bowel sounds and non-tender Palpation: soft Extremity normal to inspection Neuro oriented x3 and no sensory deficits noted Sensorium / Orientation: alert Motor Exam: strength 5/5 throughout Psych mental status grossly normal Skin no rashes or lesions noted MDM MDM MDM Narrative Medical decision making narrative: Patient was offered medication here but she states she feels comfortable going home and treating herself. I do not have any findings on physical exam that require further evaluation. Return instructions are provided. Discharge Plan Triage Chief Complaint: Nausea/Vomiting ED Provider: Lynn Morton Dx/Rx/DC Orders Clinical Impression: Nausea Instructions: ED Vomiting (Adult) Prescriptions: No Action furosemide 40 MG tablet 40 mg PO DAILY RF: 0 potassium chloride 10 MEQ tablet 20 meq PO BID RF: 0 valacyclovir [Valtrex] 500 MG tablet 500 mg PO DAILY RF: 0 warfarin 2.5 MG tablet 2.5 mg PO SUMOWEFR RF: 0 venlafaxine 150 MG capsule 150 mg PO DAILY RF: 0 melatonin 3 MG capsule 10 mg PO QHS RF: 0 ondansetron 4 MG tablet 4 mg PO Q8H PRN PRN (Reason: Nausea) Qty: 10 RF: 0 warfarin 5 MG tablet 5 mg PO TUTH RF: 0 lacosamide 100 MG tablet 100 mg PO DAILY RF: 0 magnesium oxide 200 MG tablet 400 mg PO DAILY RF: 0 lacosamide 100 MG tablet 200 mg PO QHS RF: 0 docusate sodium 100 MG capsule 100 mg PO PRN PRN (Reason: Constipation) RF: 0 dicyclomine 10 MG capsule 20 mg PO PRN PRN (Reason: Abdominal Discomfort) RF: 0 Suboxone RF: 0 Primary Care Provider: Rin Rivera NP Referrals: Rin Rivera NP, ASSEMBLY WORKER-C [Primary Care Provider] - 3-5 Days if not improving Disposition Disposition: Home, Self Care
== END 2021-05-28 19:08 | disposition home or self-care (01) ==
PROVIDERS: Emergency Provider Emergency Medicine; PCP Nurse Practitioner Family
DX: R11.2 Nausea with vomiting, unspecified (principal); D68.51 Activated protein C resistance; E78.5 Hyperlipidemia, unspecified; F32.9 Major depressive disorder, single episode, unspecified; F41.9 Anxiety disorder, unspecified; I10 Essential (primary) hypertension; G40.909 Epilepsy, unspecified, not intractable, without status epilepticus; F17.210 Nicotine dependence, cigarettes, uncomplicated; Z79.01 Long term (current) use of anticoagulants; Z79.899 Other long term (current) drug therapy; Z86.711 Personal history of pulmonary embolism; Z87.19 Personal history of other diseases of the digestive system
CPT/HCPCS: 99284

== ENCOUNTER 2021-06-29 09:57 | Emergency (ER) | payer MEDICARE, SELFPAY ==
[2021-06-29 09:58] VITALS: BP 140/98; PULSE 76; RESP 18; TEMP 36.6; O2SAT 99; BMI 37.0
--- NOTE | 2021-06-29 10:14 | EDS_ITS ---
HPI History of Present Illness Chief Complaint: Abd Pain Narrative Narrative: Patient presents with 3 to 4-day history of right-sided abdominal and flank pain. She has no urinary symptoms. She has no midline back pain. She has no fevers or chills. The pain is both upper and lower abdominal region. She also has increased bloating, she thinks she has gained some weight and has increased her diuretic, she does have a history of retention and she does increase her diuretic when that happens, she tells me that is not new, her abdominal pain is the only thing that is new. No chest pain or shortness of breath. No fevers chills. [facility] Medical History (Updated 06/29/21 @ 13:[address] Jg Maddox MD) Anxiety Depression Factor V Leiden mutation History of CVA (cerebrovascular accident) History of pancreatitis History of pulmonary embolus (PE) Hyperlipidemia Hypertension Presence of IVC filter Seizure disorder Home Medications furosemide 40 mg PO DAILY 09/10/16 [History Last Taken 09/09/19] potassium chloride 20 meq PO BID 09/10/16 [History Last Taken 09/09/19] valacyclovir [Valtrex] 500 mg PO DAILY 10/25/18 [History Last Taken 09/09/19] warfarin 2.5 mg PO SUMOTUWEFRSA 04/17/19 [History Last Taken 09/09/19] venlafaxine 150 mg PO DAILY 05/25/19 [History Last Taken 09/09/19] melatonin 10 mg PO QHS 05/26/19 [History Last Taken 09/08/19] ondansetron 4 mg PO Q8H PRN PRN #10 tab 07/04/20 [Rx Last Taken Unknown] lacosamide 100 mg PO DAILY 10/09/20 [History Last Taken Unknown] lacosamide 200 mg PO QHS 10/09/20 [History Last Taken Unknown] magnesium oxide 400 mg PO DAILY 10/09/20 [History Last Taken Unknown] warfarin 5 mg PO TH 10/09/20 [History Last Taken Unknown] dicyclomine 20 mg PO PRN PRN 02/28/21 [History Last Taken Unknown] docusate sodium 100 mg PO PRN PRN 02/28/21 [History Last Taken Unknown] Suboxone 24 mg SUBLINGUAL DAILY 04/18/21 [History Last Taken Unknown] aripiprazole [Abilify] 10 mg PO BID 05/28/21 [History Last Taken Unknown] hydrochlorothiazide 25 mg PO BID 05/28/21 [History Last Taken Unknown] linaclotide [Linzess] 290 mcg PO DAILY 05/28/21 [History Last Taken Unknown] mirtazapine [Remeron] 30 mg PO QHS 05/28/21 [History Last Taken Unknown] Allergy/AdvReac Type Severity Reaction Status Date / Time gabapentin [From Neurontin] Allergy Rash Verified 06/29/21 10:00 morphine Allergy HYPOTENSION Verified 06/29/21 10:00 Penicillins Allergy Rash Verified 06/29/21 10:00 Sulfa (Sulfonamide Allergy Rash Verified 06/29/21 10:00 Antibiotics) Surgical History History of appendectomy History of hysterectomy Hx of cholecystectomy Social History Smoking Status: Current every day smoker tobacco type: cigarettes and e-cigaret celina ROS ROS ED ROS Narrative Past medical history: Reviewed, includes history of pancreatitis, status post c holecystectomy and appendectomy, she has a factor V Leiden deficiency for which she is on Coumadin, she has a history of drug abuse and pancreatitis and alcohol abuse. Medications: Reviewed Social history: Noncontributory Review of systems: All systems negative except as indicated General: No fever Eyes: No visual changes ENT: No upper airway congestion, normal voice Neck: No neck pain Cardiovascular: No chest pain Respiratory: No shortness of breath or cough Gastrointestinal: Abdominal pain as in HPI Genitourinary: No dysuria Musculoskeletal: Denies myalgias no difficulty with ambulation, bilateral lower extremity edema. Skin: No rash Neurological: No memory loss, confusion or any focal weakness Psych: No recent behavioral changes Hematologic: No easy bleeding or easy bruising EXAM Physical Exam Narrative Exam Narrative: Physical exam General: Patient appears uncomfortable. Head: Normocephalic, Atraumatic Eyes: Conjunctiva not pale ENT: Moist mucous membranes Neck: Supple, Nontender, No lymphadenopathy Cardiovascular: Regular rate, Regular rhythm Respiratory: No distress, CTA bilaterally Abdomen: Soft, there is right-sided abdominal tenderness, both upper and lower abdomen and some CVA tenderness. No guarding or rebound. Negative Barrett's, the pain is not specifically at McBurney's. Back: Nontender, Normal Inspection. Negative for: CVA tenderness Extremities: Nontender, No edema Skin: Normal color, No rash Neurological: Alert, Normal Strength, Normal Sensation Psychological: Normal affect Const Vital Signs: 06/29/21 09:58 06/29/21 12:16 Temperature 97.9 F Temperature Source Temporal Pulse Rate 76 Respiratory Rate 18 16 Blood Pressure 140/98 H Blood Pressure Mean 112 Pulse Ox 99 Oxygen Delivery Method Room Air MDM MDM MDM Narrative Medical decision making narrative: Patient has a normal ED work-up. She appears well. She received Toradol with improvement should be discharged with reassurance. Lab Data Labs: Laboratory Results - last 24 hr 06/29/21 06/29/21 06/29/21 10:28 12:14 12:14 WBC 5.5 RBC 3.91 L Hgb 12.2 Hct 36.3 L MCV 92.8 MCH 31.2 MCHC 33.6 RDW Std Deviation 38.2 RDW Coeff of Megan 11.2 L Plt Count 250 MPV 8.1 Immature Gran % (Auto) 0.400 Neut % (Auto) 56.2 Lymph % (Auto) 30.8 [place] % (Auto) 8.8 Eos % (Auto) 3.3 Baso % (Auto) 0.5 Absolute Neuts (auto) 3.1 Absolute Lymphs (auto) 1.68 Nucleated RBC % 0 PT INR Sodium 140 Potassium 4.5 Chloride 110 H Carbon Dioxide 23.0 Anion Gap 7 BUN 24 H Creatinine 1.00 Estim Creat Clear Calc 58.15 Est GFR (MDRD) Af Amer 77 Est GFR (MDRD) Non-Af 63 BUN/Creatinine Ratio 24.0 H Glucose 147 H Calcium 9.1 Total Bilirubin 0.40 AST 34 ALT 84 H Alkaline Phosphatase 132 H Total Protein 6.9 Albumin 3.2 Globulin 3.7 Albumin/Globulin Ratio 0.9 Lipase 60 L Urine Color Yellow Urine Clarity Sl. Cloudy Urine pH 6.5 Ur Specific [place] 1.010 Urine Protein Negative Urine Glucose (UA) Normal Urine Ketones Negative Urine Occult Blood Negative Urine Nitrite Negative Urine Bilirubin Negative Urine Urobilinogen Normal Ur Leukocyte Esterase Negative Urine RBC 0 SEEN Urine WBC 0 SEEN Ur Squamous Epith Cells 0-5 SEEN Urine Bacteria 1+ Urine Mucus 0 SEEN 06/29/21 12:14 WBC RBC Hgb Hct MCV MCH MCHC RDW Std Deviation RDW Coeff of Megan Plt Count MPV Immature Gran % (Auto) Neut % (Auto) Lymph % (Auto) [place] % (Auto) Eos % (Auto) Baso % (Auto) Absolute Neuts (auto) Absolute Lymphs (auto) Nucleated RBC % PT 20.1 H INR 1.8 Sodium Potassium Chloride Carbon Dioxide Anion Gap BUN Creatinine Estim Creat Clear Calc Est GFR (MDRD) Af Amer Est GFR (MDRD) Non-Af BUN/Creatinine Ratio Glucose Calcium Total Bilirubin AST ALT Alkaline Phosphatase Total Protein Albumin Globulin Albumin/Globulin Ratio Lipase Urine Color Urine Clarity Urine pH Ur Specific [place] Urine Protein Urine Glucose (UA) Urine Ketones Urine Occult Blood Urine Nitrite Urine Bilirubin Urine Urobilinogen Ur Leukocyte Esterase Urine RBC Urine WBC Ur Squamous Epith Cells Urine Bacteria Urine Mucus Radiography Diagnostic Testing: Clinical Impression(s) from Imaging Studies Abdomen/Pelvis CT 06/29/21 11:19 IMPRESSION: An inferior vena cava filter is in situ. A prominent of the filter is seen projecting lateral to the wall of the inferior vena cava at the level of the right renal hilus. This is unchanged. Electronically Signed: Cr Schofield MD at 11:53 EDT , Service support , Discharge Plan Triage Chief Complaint: Abd Pain ED Provider: Jg Maddox Dx/Rx/DC Orders Clinical Impression: Abdominal pain Instructions: Abdominal Pain Prescriptions: No Action furosemide 40 MG tablet 40 mg PO DAILY RF: 0 potassium chloride 10 MEQ tablet 20 meq PO BID RF: 0 valacyclovir [Valtrex] 500 MG tablet 500 mg PO DAILY RF: 0 warfarin 2.5 MG tablet 2.5 mg PO SUMOTUWEFRSA RF: 0 venlafaxine 150 MG capsule 150 mg PO DAILY RF: 0 melatonin 3 MG capsule 10 mg PO QHS RF: 0 ondansetron 4 MG tablet 4 mg PO Q8H PRN PRN (Reason: Nausea) Qty: 10 RF: 0 warfarin 5 MG tablet 5 mg PO TH RF: 0 lacosamide 100 MG tablet 100 mg PO DAILY RF: 0 magnesium oxide 200 MG tablet 400 mg PO DAILY RF: 0 lacosamide 100 MG tablet 200 mg PO QHS RF: 0 docusate sodium 100 MG capsule 100 mg PO PRN PRN (Reason: Constipation) RF: 0 dicyclomine 10 MG capsule 20 mg PO PRN PRN (Reason: Abdominal Discomfort) RF: 0 Suboxone 24 mg sublingual DAILY RF: 0 mirtazapine [Remeron] 30 mg Tablet 30 mg PO QHS RF: 0 hydrochlorothiazide 25 mg tablet 25 mg PO BID RF: 0 aripiprazole [Abilify] 10 mg Tablet 10 mg PO BID RF: 0 Linzess 290 mcg capsule 290 mcg PO DAILY RF: 0 Primary Care Provider: Rin Rivera NP Referrals: Rin Rivera NP, IT INFRASTRUCTURE PROJECT MANAGER-C [Primary Care Provider] - 2 Days Disposition Disposition: Home, Self Care
[2021-06-29 10:48] LABS: Mucous, Urine 0 SEEN /hpf (<or=2+); Red Blood Cells-Urine 0 SEEN /hpf (0-5); White Blood Cells 0 SEEN /hpf (0-5)
[2021-06-29 10:58] LABS: Color, Urine Yellow (Yellow); Glucose, Dipstick Normal (Normal); Ketone-Dipstick Negative (Negative); Leukocyte Esterase-Dipstick Negative /ul (Negative); Nitrite-Dipstick Negative (Negative); Occult Blood-Urine Negative /ul (Negative); Protein-Dipstick Negative (Negative); Urine Bilirubin Dipstick Negative (Negative); Urine Clarity Sl. Cloudy (Clear); Urine Urobilinogen Normal (Normal); Urine pH 6.5 (5.0 - 8.0)
[2021-06-29 11:04] LABS: Bacteria 1+ /hpf (None Seen); Squamous Epithelial Cells - UA 0-5 SEEN /hpf (5-10)
[2021-06-29] MEDS: Ketorolac 15 MG/ML Vial IV (11:16)
--- NOTE | 2021-06-29 11:19 | CT_ITS ---
STUDY: CT ABDOMEN AND PELVIS WITHOUT CONTRAST REASON FOR EXAM: Female, 45 years old. Abdominal pain RADIATION DOSAGE (If Supplied By Facility): CTDIvol = ( 18.94 ) mGy, DLP = ( 979.47 ) mGycm TECHNIQUE: Transaxial images were obtained from the dome of the diaphragm to the symphysis pubis without oral contrast, and without intravenous contrast. Sagittal and coronal images were reconstructed. Individualized dose optimization techniques were used for this CT. COMPARISON: Comparison is made with prior study dated 10/09/2020. FINDINGS: Stable minimal increase in the markings along the medial aspect of the right middle lobe suggestive of a mild scarring. The visualized portions of the heart are within normal limits. Normal liver. There are surgical clips in the gallbladder fossa consistent with a prior cholecystectomy. Normal spleen. Normal pancreas. Normal bilateral adrenal glands. Normal right kidney. Normal left kidney. Radiopaque tablet is seen along the posterior aspect of the body of the stomach. Normal small intestine. Normal colon. The appendix is visualized and appears normal. Normal abdominal aorta. There is an IVC filter in place. A prominent of the inferior vena cava filter is seen projecting lateral to the inferior vena cava at the level of the renal hilum. This is unchanged. There is borderline retroperitoneal lymphadenopathy with enlarged nodes no greater than 10mm in the short axis diameter. Normal urinary bladder. Normal abdominal wall. Normal osseous structures. CT/Abdomen/Pelvis without Cont IMPRESSION: An inferior vena cava filter is in situ. A prominent of the filter is seen projecting lateral to the wall of the inferior vena cava at the level of the right renal hilus. This is unchanged. Electronically Signed: Cr Schofield MD at 11:53 EDT , Service support ,
[2021-06-29 12:16] VITALS: RESP 16
[2021-06-29 12:22] LABS: Absolute Lymphocyte Count 1.68 X10^3/uL (0.83-4.51); Absolute Neutrophil Count 3.1 X10^3/uL (2.0-7.7); Basophil# 0.03 X10^3/uL; Basophil% 0.5 % (0-1); Eosinophil# 0.18 X10^3/uL; Eosinophils% 3.3 % (0-5); Hematocrit 36.3 % (37-47); Hemoglobin 12.2 g/dL (12.0-15.0); Lymphocyte # 1.68 X10^3/ul (0.83-4.51); Lymphocyte % 30.8 % (19-41); Mean Corp Hgb Conc 33.6 g/dL (32-36); Mean Corpuscular Hgb 31.2 pg (27.0-32.0); Mean Corpuscular Volume 92.8 fL (81-99); Mean Platelet Vol. 8.1 fl (6.2-12.0); Monocyte# 0.48 X10^3/uL; Monocyte% 8.8 % (0-10); NRBC Flagged by Analyzer 0 % (0-5); Neutrophil # 3.07 X10^3/uL (2.7-7.7); Neutrophil % 56.2 % (47-70); Platelet Count 250 K/mm3 (150-450); RBC Distribution Width CV 11.2 % (11.6-14.6); RBC Distribution Width SD 38.2 fl (35.1-43.9); Red Blood Count 3.91 M/mm3 (4.2-5.4); White Blood Count 5.5 K/mm3 (4.4-11.0)
[2021-06-29 12:31] LABS: International Normalized Ratio 1.8; Prothrombin Time (Protime)PT. 20.1 SECONDS (11.7-14.9)
[2021-06-29 12:38] LABS: ALB/GLOB Ratio 0.9 RATIO (0.9-2.4); AST(SGOT) 34 U/L (15-37); Alanine Aminotransfer ALT/SGPT 84 U/L (13-56); Albumin, Serum 3.2 g/dL (3.2-5.0); Alkaline Phosphatase 132 U/L (45-117); Anion Gap 7 (5-15); BUN 24 mg/dL (7-18); Calcium,Total 9.1 mg/dL (8.5-10.1); Chloride 110 mmol/L (98-107); EST Glomerular Filtration Rate 63 mL/min (>60); Est Glom Filt Rate - Afr Amer 77 mL/min (>60); Estimated Creatinine Clearance 58.15 ml/min; Globulin 3.7 g/dL (2.2-4.2); Glucose 147 mg/dL (74-106); Lipase 60 U/L (73-393); Potassium 4.5 mmol/L (3.5-5.1); Protein, Total 6.9 g/dL (6.4-8.2); Sodium Level 140 mmol/L (136-145)
== END 2021-06-29 13:46 | disposition home or self-care (01) ==
PROVIDERS: Emergency Provider Emergency Medicine; PCP Nurse Practitioner Family
DX: R10.9 Unspecified abdominal pain (principal); D68.51 Activated protein C resistance; E78.5 Hyperlipidemia, unspecified; F17.210 Nicotine dependence, cigarettes, uncomplicated; F32.9 Major depressive disorder, single episode, unspecified; F41.9 Anxiety disorder, unspecified; G40.909 Epilepsy, unspecified, not intractable, without status epilepticus; I10 Essential (primary) hypertension; Z79.01 Long term (current) use of anticoagulants; Z86.711 Personal history of pulmonary embolism; Z86.73 Personal history of transient ischemic attack (TIA), and cerebral infarction without residual deficits; Z87.19 Personal history of other diseases of the digestive system; Z90.49 Acquired absence of other specified parts of digestive tract
CPT/HCPCS: 74176; 80053; 81001; 83690; 85025; 85610; 96374; 99285; A4216

== ENCOUNTER 2021-09-11 21:41 | Emergency (ER) | payer MEDICARE, SELFPAY ==
[2021-09-11 21:41] VITALS: BP 142/76; PULSE 104; RESP 18; TEMP 36.6; O2SAT 99; BMI 35.4
--- NOTE | 2021-09-11 21:59 | EDS_ITS ---
HPI History of Present Illness Chief Complaint: Seizure Informant: patient Onset/Context/Timing Onset: Today Context: Sudden Onset Timing: Intermittent Current Severity: Gone Maximum Severity: Mild Narrative Narrative: 45-year-old female history of anxiety, depression, seizure disorder, factor V Leiden on Xarelto and pulmonary emboli. She states that she had seizures x2 when I specifically asked her what it was like she said there are jerks she was awake the entire time the right loss of consciousness. She was ev aluated for this at the [facility] about a year ago and they can find nothing. Patient's had 11 CAT scans of the brain done here over the last several years. She denies any fever or headache. Prior similar symptoms: Yes Recent Illness/Hospitalization: No PFSH [facility] Medical History Anxiety Depression Factor V Leiden mutation History of CVA (cerebrovascular accident) History of pancreatitis History of pulmonary embolus (PE) Hyperlipidemia Hypertension Presence of IVC filter Seizure disorder Home Medications furosemide 40 mg PO DAILY 09/10/16 [History Last Taken 09/09/19] potassium chloride 20 meq PO BID 09/10/16 [History Last Taken 09/09/19] valacyclovir [Valtrex] 500 mg PO DAILY 10/25/18 [History Last Taken 09/09/19] warfarin 2.5 mg PO SUMOTUWEFRSA 04/17/19 [History Last Taken 09/09/19] venlafaxine 150 mg PO DAILY 05/25/19 [History Last Taken 09/09/19] melatonin 10 mg PO QHS 05/26/19 [History Last Taken 09/08/19] ondansetron 4 mg PO Q8H PRN PRN #10 tab 07/04/20 [Rx Last Taken Unknown] lacosamide 100 mg PO DAILY 10/09/20 [History Last Taken Unknown] lacosamide 200 mg PO QHS 10/09/20 [History Last Taken Unknown] magnesium oxide 400 mg PO DAILY 10/09/20 [History Last Taken Unknown] warfarin 5 mg PO TH 10/09/20 [History Last Taken Unknown] dicyclomine 20 mg PO PRN PRN 02/28/21 [History Last Taken Unknown] docusate sodium 100 mg PO PRN PRN 02/28/21 [History Last Taken Unknown] Suboxone 24 mg SUBLINGUAL DAILY 04/18/21 [History Last Taken Unknown] aripiprazole [Abilify] 10 mg PO BID 05/28/21 [History Last Taken Unknown] hydrochlorothiazide 25 mg PO BID 05/28/21 [History Last Taken Unknown] linaclotide [Linzess] 290 mcg PO DAILY 05/28/21 [History Last Taken Unknown] mirtazapine [Remeron] 30 mg PO QHS 05/28/21 [History Last Taken Unknown] Allergy/AdvReac Type Severity Reaction Status Date / Time gabapentin [From Neurontin] Allergy Rash Verified 09/11/21 21:42 morphine Allergy HYPOTENSION Verified 09/11/21 21:42 Penicillins Allergy Rash Verified 09/11/21 21:42 Sulfa (Sulfonamide Allergy Rash Verified 09/11/21 21:42 Antibiotics) Surgical History History of appendectomy History of hysterectomy Hx of cholecystectomy Social History Smoking Status: Current every day smoker tobacco type: cigarettes and e- cigarettes ROS ROS ED ROS Narrative Nausea, vomiting and diarrhea 3 days ago which is since resolved. Review of Systems ROS Unobtainable: Denies due to encephalopathy Constitutional Constitutional ED: Denies chills or fever(s) Eyes Eyes: Denies change in vision ENT ENT ED: Denies ear pain Cardiovascular Cardiovascular: Denies chest pain Respiratory/Chest Respiratory/Chest: Denies cough, dyspnea or sputum Gastrointestinal Gastrointestinal: Reports diarrhea, nausea and vomiting; Denies abdominal pain Genitourinary Genitourinary ED: Denies dysuria Musculoskeletal Musculoskeletal: Denies myalgias Integumentary Denies rash Neurologic Neurologic: Denies headache(s) Psychiatric Psychiatric: Denies depression Endocrine Endocrinology: Denies polyuria Allergic/Immunologic Allergic/Immunologic ED: Denies urticaria EXAM Physical Exam Narrative Exam Narrative: White female no acute distress vital signs stable afebrile. HEENT exam normal. No trauma. Pupils round reactive light. Normal speech. No facial droop. Neck nontender no meningismus. Lungs clear to auscultation. Heart regular rhythm no murmur rate about 90. Abdomen soft nontender. Moving all 4 extremities. Equal symmetrical appellate law clerk strength. Dorsi plantarflexion intact. Neurologic exam normal. She is awake and alert. Answering questions and following commands. NIH score is 0. Fingertip to nose and [id number] within normal limits. Const Vital Signs: 09/11/21 21:41 Temperature 97.8 F Temperature Source Temporal Pulse Rate 104 H Respiratory Rate 18 Blood Pressure 142/76 H Blood Pressure Mean 98 Pulse Ox 99 Positive well nourished, well developed and obese; Negative for cachectic, contractures or unkempt General Appearance ED: well developed and NAD; Negative for unkempt, cachectic, contractures, cyanotic, diaphoretic or pallor Nutritional Appearance: obese; Negative for cachectic HEENT Reports moist mucous membranes Negative for trauma or tenderness Eyes PERRL and EOMs intact bilaterally Neck no lymphadenopathy, supple and no JVD General: Negative for tenderness Chest Wall inspection of chest normal and palpation of chest normal Resp normal respiratory effort and clear to auscultation bilaterally Effort and Inspection: Negative for pain with movement Auscultation: Negative for rales or rhonchi Cardio regular rate, regular rhythm, S1 normal heart sound, S2 normal heart sound and no murmurs GI normal to inspection, nondistended, normoactive bowel sounds, non-tender, non- distended and no masses Auscultation: normoactive bowel sounds Palpation: soft; Negative for tender, guarding or rebound tenderness present Back/Spine no CVA tenderness General Back: Negative for CVA tenderness Cervical Spine: Negative for cervical spine tenderness Thoracic Spine / Upper Back: Negative for thoracic spinal tenderness Neuro oriented x3 and CN's II-XII intact bilaterally Sensorium / Orientation: alert; Negative for orientation impaired, lethargic or stuporous Motor Exam: strength 5/5 throughout Psych mental status grossly normal Appearance: Negative for unkempt Mood & Affect: Negative for depressed or tearful Skin no rashes or lesions noted, no wounds and skin turgor normal General Skin Exam: Negative for jaundice or pallor MDM MDM MDM Narrative Medical decision making narrative: 45-year-old female completely normal exam. Has had extensive work-ups here in the past and at [facility]. Tonight it sounds like she had myoclonic jerks. She did not lose conscious. She has had no head trauma. She does not have a headache. Her vital signs are normal. I do not think she needs any work-up done. I explained that to her and her significant other. And they will be discharged to home. Discharge Plan Triage Chief Complaint: Seizure ED Provider: Jacob Rowland Dx/Rx/DC Orders Clinical Impression: Myoclonic jerking, Factor V Leiden, Chronic anticoagulation Prescriptions: No Action furosemide 40 MG tablet 40 mg PO DAILY RF: 0 potassium chloride 10 MEQ tablet 20 meq PO BID RF: 0 valacyclovir [Valtrex] 500 MG tablet 500 mg PO DAILY RF: 0 warfarin 2.5 MG tablet 2.5 mg PO SUMOTUWEFRSA RF: 0 venlafaxine 150 MG capsule 150 mg PO DAILY RF: 0 melatonin 3 MG capsule 10 mg PO QHS RF: 0 ondansetron 4 MG tablet 4 mg PO Q8H PRN PRN (Reason: Nausea) Qty: 10 RF: 0 warfarin 5 MG tablet 5 mg PO TH RF: 0 lacosamide 100 MG tablet 100 mg PO DAILY RF: 0 magnesium oxide 200 MG tablet 400 mg PO DAILY RF: 0 lacosamide 100 MG tablet 200 mg PO QHS RF: 0 docusate sodium 100 MG capsule 100 mg PO PRN PRN (Reason: Constipation) RF: 0 dicyclomine 10 MG capsule 20 mg PO PRN PRN (Reason: Abdominal Discomfort) RF: 0 Suboxone 24 mg sublingual DAILY RF: 0 mirtazapine [Remeron] 30 mg Tablet 30 mg PO QHS RF: 0 hydrochlorothiazide 25 mg tablet 25 mg PO BID RF: 0 aripiprazole [Abilify] 10 mg Tablet 10 mg PO BID RF: 0 Linzess 290 mcg capsule 290 mcg PO DAILY RF: 0 Primary Care Provider: Rin Rivera NP Referrals: Rin Rivera NP, [employer] [Primary Care Provider] - Activity Restrictions/Additional Instructions: Continue your current medications. Follow-up with your primary care physician. Disposition Disposition: Home, Self Care
== END 2021-09-11 22:11 | disposition home or self-care (01) ==
PROVIDERS: Emergency Provider Emergency Medicine; PCP Nurse Practitioner Family
DX: G25.3 Myoclonus (principal); D68.51 Activated protein C resistance; Z79.01 Long term (current) use of anticoagulants; E66.9 Obesity, unspecified; F17.210 Nicotine dependence, cigarettes, uncomplicated; E78.5 Hyperlipidemia, unspecified; F32.A Depression, unspecified; F41.9 Anxiety disorder, unspecified; I10 Essential (primary) hypertension; Z86.711 Personal history of pulmonary embolism; Z86.73 Personal history of transient ischemic attack (TIA), and cerebral infarction without residual deficits; Z87.19 Personal history of other diseases of the digestive system
CPT/HCPCS: 99282

== ENCOUNTER 2021-11-21 13:51 | Emergency (ER) | payer MEDICARE, SELFPAY ==
[2021-11-21 13:52] VITALS: BP 137/93; PULSE 117; RESP 18; TEMP 36.4; O2SAT 96; BMI 21.2
--- NOTE | 2021-11-21 14:00 | EDS_ITS ---
HPI History of Present Illness Chief Complaint: Abscess Informant: patient Onset/Context/Timing Onset: Days Context: Gradual Onset Current Severity: Moderate Maximum Severity: Moderate Narrative Narrative: Patient presents secondary to left axillary abscess. Patient states she has noticed it for the past several days. She has not had any drainage. She been taking warm baths and using hot compresses without improvement. No fever or chills. [facility] Medical History Anxiety Depression Factor V Leiden mutation History of CVA (cerebrovascular accident) History of pancreatitis History of pulmonary embolus (PE) Hyperlipidemia Hypertension Presence of IVC filter Seizure disorder Home Medications furosemide 40 mg PO DAILY 09/10/16 [History Last Taken 09/09/19] potassium chloride 20 meq PO BID 09/10/16 [History Last Taken 09/09/19] valacyclovir [Valtrex] 500 mg PO DAILY 10/25/18 [History Last Taken 09/09/19] warfarin 2.5 mg PO SUMOTUWEFRSA 04/17/19 [History Last Taken 09/09/19] venlafaxine 150 mg PO DAILY 05/25/19 [History Last Taken 09/09/19] melatonin 10 mg PO QHS 05/26/19 [History Last Taken 09/08/19] ondansetron 4 mg PO Q8H PRN PRN #10 tab 07/04/20 [Rx Last Taken Unknown] lacosamide 100 mg PO DAILY 10/09/20 [History Last Taken Unknown] lacosamide 200 mg PO QHS 10/09/20 [History Last Taken Unknown] magnesium oxide 400 mg PO DAILY 10/09/20 [History Last Taken Unknown] warfarin 5 mg PO TH 10/09/20 [History Last Taken Unknown] dicyclomine 20 mg PO PRN PRN 02/28/21 [History Last Taken Unknown] docusate sodium 100 mg PO PRN PRN 02/28/21 [History Last Taken Unknown] Suboxone 24 mg SUBLINGUAL DAILY 04/18/21 [History Last Taken Unknown] aripiprazole [Abilify] 10 mg PO BID 05/28/21 [History Last Taken Unknown] hydrochlorothiazide 25 mg PO BID 05/28/21 [History Last Taken Unknown] linaclotide [Linzess] 290 mcg PO DAILY 05/28/21 [History Last Taken Unknown] mirtazapine [Remeron] 30 mg PO QHS 05/28/21 [History Last Taken Unknown] doxycycline monohydrate 100 mg PO BID #20 cap 11/21/21 [Rx Last Taken Unknown] Allergy/AdvReac Type Severity Reaction Status Date / Time gabapentin [From Neurontin] Allergy Rash Verified 11/21/21 13:51 morphine Allergy HYPOTENSION Verified 11/21/21 13:51 Penicillins Allergy Rash Verified 11/21/21 13:51 Sulfa (Sulfonamide Allergy Rash Verified 11/21/21 13:51 Antibiotics) Surgical History History of appendectomy History of hysterectomy Hx of cholecystectomy Social History Smoking Status: Current every day smoker tobacco type: cigarettes and e- cigarettes ROS ROS ED Constitutional Constitutional ED: Denies chills or fever(s) Eyes Eyes: Denies change in vision ENT ENT ED: Denies sore throat Cardiovascular Cardiovascular: Denies chest pain Respiratory/Chest Respiratory/Chest: Denies cough or dyspnea Gastrointestinal Gastrointestinal: Denies abdominal pain, nausea or vomiting Musculoskeletal Musculoskeletal: Reports myalgias; Denies back pain Integumentary Reports abscess; Denies rash Neurologic Neurologic: Denies headache(s) or weakness Allergic/Immunologic Allergic/Immunologic ED: Denies urticaria EXAM Physical Exam Const Vital Signs: 11/21/21 13:52 Temperature 97.5 F L Temperature Source Temporal Pulse Rate 117 H Respiratory Rate 18 Blood Pressure 137/93 H Blood Pressure Mean 107 Pulse Ox 96 Oxygen Delivery Method Room Air Positive well nourished and well developed General Appearance ED: well developed HEENT Reports moist mucous membranes Eyes PERRL and EOMs intact bilaterally Neck supple Chest Wall inspection of chest normal and palpation of chest normal Resp normal respiratory effort and clear to auscultation bilaterally Cardio regular rate and regular rhythm GI non-tender Palpation: soft Extremity Extremity Narrative: 2 x 4 cm cutaneous abscess to the left axilla. Area is firm and indurated. No significant surrounding cellulitis. Neuro oriented x3 Sensorium / Orientation: alert Psych mental status grossly normal Skin no rashes or lesions noted MDM MDM MDM Narrative Medical decision making narrative: Bedside ultrasound over the abscess was performed. Skin is thickened and indurated but no fluid collection noted at this time. Patient will be given a one-time IM injection of pain medication and started on doxycycline. Return instructions provided. Discharge Plan Triage Chief Complaint: Abscess ED Provider: Lynn Morton Dx/Rx/DC Orders Clinical Impression: Cutaneous abscess Instructions: ED Abscess Antibiotic Treatment Only Prescriptions: New doxycycline monohydrate 100 MG capsule 100 mg PO BID Qty: 20 RF: 0 No Action furosemide 40 MG tablet 40 mg PO DAILY RF: 0 potassium chloride 10 MEQ tablet 20 meq PO BID RF: 0 valacyclovir [Valtrex] 500 MG tablet 500 mg PO DAILY RF: 0 warfarin 2.5 MG tablet 2.5 mg PO SUMOTUWEFRSA RF: 0 venlafaxine 150 MG capsule 150 mg PO DAILY RF: 0 melatonin 3 MG capsule 10 mg PO QHS RF: 0 ondansetron 4 MG tablet 4 mg PO Q8H PRN PRN (Reason: Nausea) Qty: 10 RF: 0 warfarin 5 MG tablet 5 mg PO TH RF: 0 lacosamide 100 MG tablet 100 mg PO DAILY RF: 0 magnesium oxide 200 MG tablet 400 mg PO DAILY RF: 0 lacosamide 100 MG tablet 200 mg PO QHS RF: 0 docusate sodium 100 MG capsule 100 mg PO PRN PRN (Reason: Constipation) RF: 0 dicyclomine 10 MG capsule 20 mg PO PRN PRN (Reason: Abdominal Discomfort) RF: 0 Suboxone 24 mg sublingual DAILY RF: 0 mirtazapine [Remeron] 30 mg Tablet 30 mg PO QHS RF: 0 hydrochlorothiazide 25 mg tablet 25 mg PO BID RF: 0 aripiprazole [Abilify] 10 mg Tablet 10 mg PO BID RF: 0 Linzess 290 mcg capsule 290 mcg PO DAILY RF: 0 Primary Care Provider: Rin Rivera NP Referrals: Rin Rivera NP, [employer] [Primary Care Provider] - Activity Restrictions/Additional Instructions: Keep scheduled appointment with your PCP. Disposition Disposition: Home, Self Care
[2021-11-21] MEDS: Doxycycline 100 MG CAPSULE PO (14:33)
[2021-11-21] MEDS: HYDROmorphone 1 MG/ML Syringe IM (14:34)
== END 2021-11-21 14:50 | disposition home or self-care (01) ==
LOC: ED 14:27
PROVIDERS: Emergency Provider Emergency Medicine; PCP Nurse Practitioner Family; Visit Provider Emergency Medicine
DX: L02.91 Cutaneous abscess, unspecified (principal); D68.51 Activated protein C resistance; I10 Essential (primary) hypertension; E78.5 Hyperlipidemia, unspecified; F17.210 Nicotine dependence, cigarettes, uncomplicated; Z86.73 Personal history of transient ischemic attack (TIA), and cerebral infarction without residual deficits; Z86.711 Personal history of pulmonary embolism; F41.9 Anxiety disorder, unspecified; F32.A Depression, unspecified
CPT/HCPCS: 99283

== ENCOUNTER 2021-12-02 21:07 | Inpatient (IN) | payer MEDICARE, SELFPAY ==
[2021-12-02 21:07] VITALS: BP 126/72; PULSE 111; RESP 18; TEMP 36; O2SAT 97; BMI 35.4
[2021-12-03] VITALS (13 sets, daily range): BP systolic 129–148; BP diastolic 67–94; PULSE 77–102; RESP 14–18; TEMP 36.1–37.6; O2SAT 93–95; BMI 38.9
--- NOTE | 2021-12-03 00:31 | CT_ITS ---
STUDY: CT ABDOMEN AND PELVIS WITH CONTRAST REASON FOR EXAM: Female, 45 years old. abd pain RADIATION DOSAGE (If Supplied By Facility): CTDIvol = ( 14.98 ) mGy, DLP = ( 1080.68 ) mGycm TECHNIQUE: Transaxial 3.75 mm images were obtained from the dome of the diaphragm to the symphysis pubis without oral contrast. IV 100mL Isovue-300 was administered. Sagittal and coronal images were reconstructed. Individualized dose optimization techniques were used for this CT. COMPARISON: CT abdomen and pelvis 06/29/2021. 10/09/2020. CT chest 12/13/2018. FINDINGS: Stable calcified nodule right middle lobe since 2019. This is felt to be a benign entity. Compression of bilateral dependent lung parenchyma. Echo border There is decreased attenuation of the enlarged liver consistent with steatosis. There are surgical clips in the gallbladder fossa consistent with a prior cholecystectomy. There is prominence of the common bile duct with mild wall enhancement, there is no choledocholithiasis or intrahepatic biliary ductal obstruction. Normal spleen. There is walter-pancreatic edema suggesting acute pancreatitis. No pancreas duct dilatation. Fluid in the peripancreatic bed, along the bilateral pararenal cyst space, lesser sac, along the duodenum. There is indistinct contour of the duodenal and mild mucosal enhancement of the antrum and proximal duodenum. Normal bilateral adrenal glands. Normal right kidney. Normal left kidney. Normal visualized stomach. Otherwise normal small intestine. Normal colon. There is non-visualization of the appendix. Normal abdominal aorta. There is a stable IVC filter with metallic leg extension into the right pararenal space, extrinsic to the flattened inferior vena cava.. Normal retroperitoneum. Normal urinary bladder. There is absence of the uterus consistent with a prior hysterectomy. Right inguinal approach central catheter with catheter tip in the right common iliac vein. Minimal fat stranding at the entry site. Obesity. Normal osseous structures. CT/Abdomen/Pelvis W IV Cont ONLY IMPRESSION: Peripancreatic edema and fluid likely indicating at pancreatitis. Clinical laboratory correlation advised. Likely reactive changes involving the antrum, duodenum and common bile duct. A primary duodenitis, enteritis or cholangitis as source is doubtful. There is no abscess, collection, perforation or obstruction. Prior cholecystectomy, mild hepatomegaly, hepatic steatosis, calcified nodule right lobe likely granuloma, mangeled presumed bird''s nest filter in flattened inferior vena cava with extraluminal hardware extension and hysterectomy felt to be stable findings. Electronically Signed: Teresa Sales MD at 7:27 EDT Reading Location ID and State: , Service support ,
[2021-12-03] MEDS: 0.9% Normal Saline 1,000 ML 999 ML IV (01:07)
[2021-12-03] MEDS: Ondansetron 4 MG/2 ML Vial IV ×3 (01:08→22:23)
[2021-12-03] MEDS: HYDROmorphone 1 MG/ML Syringe IV ×6 (01:08→22:23)
[2021-12-03 01:35] LABS: Mucous, Urine 0 SEEN /hpf (<or=2+); Red Blood Cells-Urine 0 SEEN /hpf (0-5); Squamous Epithelial Cells - UA 0 SEEN /hpf (5-10); White Blood Cells 0 SEEN /hpf (0-5)
[2021-12-03 01:37] LABS: Absolute Lymphocyte Count 1.55 X10^3/uL (0.83-4.51); Absolute Neutrophil Count 19.9 X10^3/uL (2.0-7.7); Basophil# 0.06 X10^3/uL; Basophil% 0.3 % (0-1); Eosinophil# 0.01 X10^3/uL; Hematocrit 40.7 % (37-47); Hemoglobin 14.6 g/dL (12.0-15.0); Lymphocyte # 1.55 X10^3/ul (0.83-4.51); Mean Corp Hgb Conc 35.9 g/dL (32-36); Mean Corpuscular Hgb 30.6 pg (27.0-32.0); Mean Corpuscular Volume 85.3 fL (81-99); Mean Platelet Vol. 7.9 fl (6.2-12.0); Monocyte# 0.57 X10^3/uL; Monocyte% 2.6 % (0-10); NRBC Flagged by Analyzer 0 % (0-5); Neutrophil # 19.86 X10^3/uL (2.7-7.7); Neutrophil % 89.5 % (47-70); Platelet Count 325 K/mm3 (150-450); RBC Distribution Width CV 11.4 % (11.6-14.6); RBC Distribution Width SD 35.5 fl (35.1-43.9); Red Blood Count 4.77 M/mm3 (4.2-5.4); White Blood Count 22.2 K/mm3 (4.4-11.0)
[2021-12-03 01:38] LABS: Color, Urine Yellow (Yellow); Glucose, Dipstick Normal (Normal); Ketone-Dipstick Negative (Negative); Leukocyte Esterase-Dipstick Negative /ul (Negative); Nitrite-Dipstick Negative (Negative); Occult Blood-Urine Negative /ul (Negative); Protein-Dipstick Negative (Negative); Urine Bilirubin Dipstick Negative (Negative); Urine Clarity Sl. Cloudy (Clear); Urine Urobilinogen Normal (Normal)
[2021-12-03 01:40] LABS: Internal QC Validated? YES +Cl - CLEAR BKGD; Pregnancy, Urine Negative Negative
[2021-12-03 01:44] LABS: Amorphous Sediment 3+; Bacteria 2+ /hpf (None Seen)
[2021-12-03 02:07] LABS: AST(SGOT) 44 U/L (15-37); Alanine Aminotransfer ALT/SGPT 76 U/L (13-56); Albumin, Serum 3.7 g/dL (3.2-5.0); Alkaline Phosphatase 143 U/L (45-117); Anion Gap 11 (5-15); BUN 15 mg/dL (7-18); BUN/Creat Ratio 14.6 RATIO (10-20); Bilirubin, Direct 0.16 mg/dL (0.00-0.30); Calcium,Total 9.6 mg/dL (8.5-10.1); Chloride 98 mmol/L (98-107); Creatinine, Serum 1.03 mg/dL (0.55-1.02); EST Glomerular Filtration Rate 61 mL/min (>60); Est Glom Filt Rate - Afr Amer 74 mL/min (>60); Estimated Creatinine Clearance 56.46 ml/min; Globulin 3.5 g/dL (2.2-4.2); Glucose 152 mg/dL (74-106); Lipase 2621 U/L (73-393); Potassium 2.5 mmol/L (3.5-5.1); Protein, Total 7.2 g/dL (6.4-8.2); Sodium Level 135 mmol/L (136-145)
[2021-12-03] MEDS: fentaNYL 100 MCG/2 ML Ampul IV ×2 (04:28→07:53)
--- NOTE | 2021-12-03 05:36 | EKG12_ITS ---
Test Reason : LOWK Blood Pressure : / mmHG Vent. Rate : 079 BPM Atrial Rate : 079 BPM P-R Int : 174 ms QRS Dur : 094 ms QT Int : 436 ms P-R-T Axes : 054 -11 013 degrees QTc Int : 499 ms Normal sinus rhythm Low voltage QRS Nonspecific T wave abnormality Prolonged QT Abnormal ECG Confirmed by MICHAEL VASQUEZ, HUAN ([id number]), science editor DOROTHEA RUSSELL ([id number]) on 12/07/2021 9:51:55 AM Referred By: BRADLEY Confirmed By:SHERRI RODRIGUEZ MD
[2021-12-03] MEDS: Potassium Chloride 10mEq/100mL 10 MEQ/100 ML IV.SOLN. 100 MEQ IV BOLUS ×4 (06:15→09:15)
[2021-12-03] MEDS: proCHLORPERazine 10 MG/2 ML Vial IV (06:15)
--- NOTE | 2021-12-03 06:16 | PCM.HP.STD ---
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 She described the pain as cramping and sharp. The pain radiates to her left ribs and to her back. The pain aggravates with movement and with taking a deep breath. She denies any ameliorating factors to the pain. The pain has been progressively worsening. She described the pain as intensity 8 out of 10. Because of difficulty in obtaining an IV line for CT abdomen with contrast, a femoral central line was placed at the ED. [facility] Medical History Anxiety Depression Factor V Leiden mutation History of CVA (cerebrovascular accident) History of pancreatitis History of pulmonary embolus (PE) Hyperlipidemia Hypertension Presence of IVC filter Seizure disorder Substance abuse Home Medications furosemide 40 mg PO DAILY 09/10/16 [History Last Taken 09/09/19] potassium chloride 20 meq PO BID 09/10/16 [History Last Taken 09/09/19] valacyclovir [Valtrex] 500 mg PO DAILY 10/25/18 [History Last Taken 09/09/19] venlafaxine 150 mg PO DAILY 05/25/19 [History Last Taken 09/09/19] melatonin 10 mg PO QHS 05/26/19 [History Last Taken 09/08/19] lacosamide 100 mg PO DAILY 10/09/20 [History Last Taken Unknown] lacosamide 200 mg PO QHS 10/09/20 [History Last Taken Unknown] magnesium oxide 400 mg PO DAILY 10/09/20 [History Last Taken Unknown] dicyclomine 20 mg PO PRN PRN 02/28/21 [History Last Taken Unknown] linaclotide [Linzess] 290 mcg PO DAILY 05/28/21 [History Last Taken Unknown] aripiprazole 10 mg PO DAILY 12/03/21 [History Last Taken Unknown] buprenorphine-naloxone [Zubsolv] 2 tab SUBLINGUAL BID 12/03/21 [History Last Taken Unknown] clonidine HCl 0.2 mg PO DAILY PRN 12/03/21 [History Last Taken Unknown] hydroxyzine pamoate 50 mg PO Q6H PRN 12/03/21 [History Last Taken Unknown] methenamine hippurate [Hiprex] 1 g PO DAILY 12/03/21 [History Last Taken Unknown] ondansetron 4 mg PO Q6H PRN PRN 12/03/21 [History Last Taken Unknown] spironolactone 25 mg PO DAILY 12/03/21 [History Last Taken Unknown] zonisamide [Zonegran] 400 mg PO DAILY 12/03/21 [History Last Taken Unknown] Allergy/AdvReac Type Severity Reaction Status Date / Time gabapentin [From Neurontin] Allergy Rash Verified 12/02/21 21:09 morphine Allergy HYPOTENSION Verified 12/02/21 21:09 Penicillins Allergy Rash Verified 12/02/21 21:09 Sulfa (Sulfonamide Allergy Rash Verified 12/02/21 21:09 Antibiotics) Family History Other Hyperlipidemia Surgical History History of appendectomy History of hysterectomy Hx of cholecystectomy Social History Smoking Status: Current every day smoker tobacco type: e-cigarettes and smokeless tobacco ROS ROS Narrative Constitutional: Reports anorexia. Denies fever, chills, fatigue, and change in weight Eyes: Denies blurry vision, change in eye color, change in vision, discharge from eye(s), double vision, erythema, eye pain, loss of vision or other HEENT: Denies abnormal hearing, dysphagia, ear pain, epistaxis, headache(s), hearing loss, nasal congestion, nasal discharge, post nasal drip, sinus pressure, sore throat or other Cardiovascular: Denies chest pain or palpitations. Denies dyspnea on exertion, orthopnea and paroxysmal nocturnal dyspnea Respiratory/Chest: Denies cough, excessive phlegm production, shortness of breath with exertion and wheezing Gastrointestinal: Reports abdominal pain. Report nausea and vomiting. Genitourinary: Denies burning urination, difficulty urinating, dysuria, hematuria, nocturia, urinary frequency, urinary hesitancy, urinary incontinence, urinary urgency or other Musculoskeletal: Denies arthralgias, back pain, joint pain, joint stiffness, joint swelling, myalgias, neck pain or other Neurologic: Denies abnormal gait, abnormal speech, confusion, disequilibrium, dizziness, focal weakness, headache(s), numbness, paresthesias, seizure-like activity, seizures, syncope, tingling, tremor(s) or other Psychiatric: Denies anxiety, depression, homicidal ideation, suicidal ideation or other Endocrinology: Denies change in body appearance, cold intolerance, excessive sweating, heat intolerance, polydipsia, polyuria or other Hematologic/Lymphatic: Denies anemia, easy bleeding, easy bruising, lymphadenopathy or other Integumentary: Denies rashes Allergic/Immunologic: Denies rhinitis, hives, eczema, or other Vital Signs Vital Signs Vital Signs: 12/02/21 21:07 12/03/21 01:00 Temperature 96.8 F L Temperature Source Temporal Pulse Rate 111 H Respiratory Rate 18 18 Blood Pressure 126/72 H Blood Pressure Mean 90 Pulse Ox 97 Oxygen Delivery Method Room Air Weight Weight: 90.718 kg Body Mass Index (BMI) 35.4 Physical Exam Narrative Physical exam: General: In position secondary to pain. Head: Normocephalic, atraumatic, no tenderness Eyes: PERRLA, EOMI ENT, no trauma, moist mucous membranes, no rhinorrhea Neck: Nontender, full range of motion, no spinal tenderness, deformities, step-off CVS: Regular rate and rhythm. S1-S2 present. No murmur, gallop or rub. Respiratory : clear to auscultation bilaterally, chest wall nontender, no wheezing Abdomen: Soft, tender, nondistended, normal bowel sounds, no masses : Femoral line in groin. Back: Nontender, no CVA tenderness, no midline spinal tenderness, deformities, step-offs Extremities: Nontender full range of motion, no trauma Skin: Normal color, no trauma, abrasions Neuro: Alert, oriented, cranial nerves II through XII grossly intact. Psychiatry: Normal mood. Normal affect. Not depressed. Not anxious. Results Lab / Micro Data Result Diagrams: 12/03/21 01:25 12/03/21 01:25 Labs: Laboratory Results - last 24 hr 12/03/21 01:25: WBC 22.2 H, RBC 4.77, Hgb 14.6, Hct 40.7, MCV 85.3, MCH 30.6, MCHC 35.9, RDW Std Deviation 35.5, RDW Coeff of Megan 11.4 L, Plt Count 325, MPV 7.9, Immature Gran % (Auto) 0.600, Neut % (Auto) 89.5 H, Lymph % (Auto) 7.0 L, [place] % (Auto) 2.6, Eos % (Auto) 0.0, Baso % (Auto) 0.3, Absolute Neuts (auto) 19.9 H, Absolute Lymphs (auto) 1.55, Nucleated RBC % 0 12/03/21 01:25: Sodium 135 L, Potassium 2.5 L*, Chloride 98, Carbon Dioxide 26.0, Anion Gap 11, BUN 15, Creatinine 1.03 H, Estim Creat Clear Calc 56.46, Est GFR (MDRD) Af Amer 74, Est GFR (MDRD) Non-Af 61, BUN/Creatinine Ratio 14.6, Glucose 152 H, Calcium 9.6, Total Bilirubin 0.40, Direct Bilirubin 0.16, AST 44 H, ALT 76 H, Alkaline Phosphatase 143 H, Total Protein 7.2, Albumin 3.7, Globulin 3.5, Lipase 2621 H 12/03/21 01:25: Magnesium 2.0 12/03/21 01:30: Urine Test Negative 12/03/21 01:30: Urine Color Yellow, Urine Clarity Sl. Cloudy, Urine pH 7.0, Ur Specific [place] 1.010, Urine Protein Negative, Urine Glucose (UA) Normal, Urine Ketones Negative, Urine Occult Blood Negative, Urine Nitrite Negative, Urine Bilirubin Negative, Urine Urobilinogen Normal, Ur Leukocyte Esterase Negative, Urine RBC 0 SEEN, Urine WBC 0 SEEN, Ur Squamous Epith Cells 0 SEEN, Amorphous Sediment 3+, Urine Bacteria 2+, Urine Mucus 0 SEEN Assessment & Plan Assessment/Plan (1) Acute pancreatitis: QUALIFIERS: Acute pancreatitis complication: unspecified Pancreatitis type: unspecified pancreatitis type Qualified Code(s): K85.90 - Acute pancreatitis without necrosis or infection, unspecified PLAN: Acute recurrent pancreatitis Lipase level: 2,621 Hematocrit: 40.7 BUN: 15 CBC showed white count of 22.2. Trend CBC. Abdomen/pelvis CT ordered at the ED, follow-up. Lactated Ringer's at 250 mL/h ordered. Pain regimen: Received Dilaudid IV as needed at the emergency department and continued on a as needed basis. Antiemetics: Antiemetics with IV Zofran. Oral feeding may start when nausea and vomiting resolves. Calcium level is normal. Check lipid level. Lactic acid is 4.5, trend. Hypokalemia Review of labs showed potassium was 2.5 at the emergency department. 40 mEq potassium IV ordered emergency department. Magnesium level ordered emergency department. Home potassium p.o. continued. Repeat potassium level at noon. History of factor V Leiden deficiency with a PE and IVC filter On Xarelto. With patient having nausea and vomiting will hold off Xarelto at this time. We will start patient on subcutaneous Lovenox. Consider resuming Xarelto when nausea and vomiting has resolved. DVT prophylaxis: Therapeutic Lovenox as above. Charges/Coding Visit Charges Inpatient E&M: 17640 Init Hosp L3
--- NOTE | 2021-12-03 06:35 | ED.RN ---
PT'S MED LIST TAKEN FROM INFO ON HER PHONE. MAY NEED VERIFICATION ON SOME ITEMS THRU EXT HX.
[2021-12-03 06:39] LABS: Lactic Acid 4.5 mmol/L (0.4-1.9)
--- NOTE | 2021-12-03 06:53 | ED.RN ---
DR RODRIGUEZ AWARE OF LA RESULT
[2021-12-03 06:55] LABS: Cholesterol 200 mg/dL (200); High Density Lipoprotein 41 mg/dL; Triglycerides 255 mg/dL; Very Low Density Lipoprotein 51 mg/dL (5-40)
[2021-12-03] MEDS: Lactated Ringers 1,000 ML 999 ML IV (07:00)
--- NOTE | 2021-12-03 07:54 | EDS_ITS ---
HPI History of Present Illness Chief Complaint: Abd Pain Narrative Narrative: Patient is a 45-year-old female who states that over the last 1 to 2 days she has been developing left midepigastric abdominal pain. She states the pain is now constant and increasing in severity. She states that she has developed bouts of nausea and vomiting associated with this as well. She denies any fevers or chills or known sick contacts. She states that she has been constipated with this is normal for her as she takes Linzess. She reports a past surgical history of cholecystectomy and denies any recent alcohol use. She does state that she has a history of opioid abuse and is currently on Suboxone [facility] Medical History Anxiety Depression Factor V Leiden mutation History of CVA (cerebrovascular accident) History of pancreatitis History of pulmonary embolus (PE) Hyperlipidemia Hypertension Presence of IVC filter Seizure disorder Substance abuse Home Medications furosemide 40 mg PO BID 09/10/16 [History Last Taken 09/09/19] potassium chloride 40 meq PO TID 09/10/16 [History Last Taken 09/09/19] valacyclovir [Valtrex] 500 mg PO DAILY 10/25/18 [History Last Taken 09/09/19] venlafaxine 150 mg PO DAILY 05/25/19 [History Last Taken 09/09/19] melatonin 10 mg PO QHS 05/26/19 [History Last Taken 09/08/19] lacosamide 100 mg PO DAILY 10/09/20 [History Last Taken Unknown] lacosamide 200 mg PO QHS 10/09/20 [History Last Taken Unknown] magnesium oxide 400 mg PO BID 10/09/20 [History Last Taken Unknown] dicyclomine 20 mg PO 4X/DAY PRN 02/28/21 [History Last Taken Unknown] linaclotide [Linzess] 290 mcg PO DAILY 05/28/21 [History Last Taken Unknown] aripiprazole 10 mg PO DAILY 12/03/21 [History Last Taken Unknown] buprenorphine-naloxone [Zubsolv] 2 tab SUBLINGUAL BID 12/03/21 [History Last Taken Unknown] clonidine HCl 0.2 mg PO DAILY PRN 12/03/21 [History Last Taken Unknown] hydroxyzine pamoate 50 mg PO Q6H PRN 12/03/21 [History Last Taken Unknown] methenamine hippurate [Hiprex] 1 g PO DAILY 12/03/21 [History Last Taken Unknown] ondansetron 4 mg PO Q6H PRN PRN 12/03/21 [History Last Taken Unknown] spironolactone 25 mg PO DAILY 12/03/21 [History Last Taken Unknown] zonisamide [Zonegran] 400 mg PO DAILY 12/03/21 [History Last Taken Unknown] Allergy/AdvReac Type Severity Reaction Status Date / Time gabapentin [From Neurontin] Allergy Rash Verified 12/02/21 21:09 morphine Allergy HYPOTENSION Verified 12/02/21 21:09 Penicillins Allergy Rash Verified 12/02/21 21:09 Sulfa (Sulfonamide Allergy Rash Verified 12/02/21 21:09 Antibiotics) Family History Other Hyperlipidemia Surgical History History of appendectomy History of hysterectomy Hx of cholecystectomy Social History Smoking Status: Current every day smoker tobacco type: e-cigarettes and smokeless tobacco ROS ROS ED Constitutional Constitutional ED: Denies chills or fever(s) ENT ENT ED: Denies sore throat Cardiovascular Cardiovascular: Denies chest pain Respiratory/Chest Respiratory/Chest: Denies cough or dyspnea Gastrointestinal Gastrointestinal: Reports abdominal pain, constipation, nausea and vomiting; Denies diarrhea Genitourinary Genitourinary ED: Denies dysuria or hematuria Musculoskeletal Musculoskeletal: Reports myalgias Integumentary Denies rash Neurologic Neurologic: Denies headache(s) Hematologic/Lymphatic Hematologic/Lymphatic: Reports easy bleeding and easy bruising EXAM Physical Exam Const Vital Signs: 12/02/21 21:07 12/03/21 01:00 12/03/21 03:00 Temperature 96.8 F L Temperature Source Temporal Pulse Rate 111 H 81 Respiratory Rate 18 18 Blood Pressure 126/72 H 148/80 H Blood Pressure Mean 90 102 Pulse Ox 97 95 Oxygen Delivery Method Room Air Room Air 12/03/21 05:00 Temperature Temperature Source Pulse Rate 77 Respiratory Rate 18 Blood Pressure 147/94 H Blood Pressure Mean 111 Pulse Ox 93 Oxygen Delivery Method Room Air Positive well nourished, well developed and obese General Appearance ED: well developed Nutritional Appearance: obese HEENT Reports dry mucous membranes Mouth ED: Yes dry mucous membranes Mouth: dry mucous membranes Eyes PERRL and EOMs intact bilaterally General Eye ED: Negative for scleral icterus Neck supple Resp normal respiratory effort and clear to auscultation bilaterally Cardio regular rate and regular rhythm Rate: other Other Details: Radial pulses are +2-4 bilaterally are equal and symmetric GI non-distended GI Narrative: Abdomen is obese soft and nondistended with hypoactive bowel sounds. There is pain with palpation in the midepigastric and left upper quadrant regions with slight guarding at the site. No rigidity or pulsatile mass. No fluid wave noted Palpation: soft Back/Spine no CVA tenderness Extremity normal to inspection Neuro oriented x3 and CN's II-XII intact bilaterally Sensorium / Orientation: alert Motor Exam: strength 5/5 throughout Psych mental status grossly normal Skin no rashes or lesions noted Skin Narrative: Skin turgor slightly increased General Skin Exam: Negative for jaundice MDM MDM MDM Narrative Medical decision making narrative: Patient presented to the ER afebrile but had pain in the midepigastric and left upper quadrant region. With this there is concern she could be developing a possible pancreatitis or underlying intestinal infection so elected to perform basic laboratory studies with a CT scan. White blood cell count is elevated at 22.2 so lactic acid was added and this is also elevated at 4.5. Potassium is down to 2.5 as well but magnesium is normal. The patient's lipase is elevated at 2600 consistent with her pain and concern for acute pancreatitis. The patient is a difficult stick and the one IV we had in her right thumb infiltrated and therefore central line had to be placed for venous access. Patient was given 2 L of fluid because of the lactic acidosis but this time as she is afebrile I do not feel the white count and lactic acidosis are secondary to true infection but more of a stress response and dehydration change and therefore not provide antibiotics at this time. However based on the patient's elevated lipase pain and inflammation on CT scan she does need to be kept in the hospital for further care Patient had a right femoral vein central line placed. The patient was cleaned and prepped in sterile fashion. The femoral vein was visualized under ultrasound. The vein was accessed and there was return of dark red nonpulsatile blood. The guidewire threaded without difficulty. The triple-lumen catheter was placed in each port beth and flushed without difficulty as well. Patient tolerated procedure well without complication Lab Data Attestation: I reviewed the patient's lab results. Labs: Laboratory Results - last 24 hr 12/03/21 12/03/21 12/03/21 01:25 01:25 01:25 WBC 22.2 H RBC 4.77 Hgb 14.6 Hct 40.7 MCV 85.3 MCH 30.6 MCHC 35.9 RDW Std Deviation 35.5 RDW Coeff of Megan 11.4 L Plt Count 325 MPV 7.9 Immature Gran % (Auto) 0.600 Neut % (Auto) 89.5 H Lymph % (Auto) 7.0 L [place] % (Auto) 2.6 Eos % (Auto) 0.0 Baso % (Auto) 0.3 Absolute Neuts (auto) 19.9 H Absolute Lymphs (auto) 1.55 Nucleated RBC % 0 Sodium 135 L Potassium 2.5 L* Chloride 98 Carbon Dioxide 26.0 Anion Gap 11 BUN 15 Creatinine 1.03 H Estim Creat Clear Calc 56.46 Est GFR (MDRD) Af Amer 74 Est GFR (MDRD) Non-Af 61 BUN/Creatinine Ratio 14.6 Glucose 152 H Lactic Acid Calcium 9.6 Magnesium 2.0 Total Bilirubin 0.40 Direct Bilirubin 0.16 AST 44 H ALT 76 H Alkaline Phosphatase 143 H Total Protein 7.2 Albumin 3.7 Globulin 3.5 Triglycerides Cholesterol LDL Cholesterol VLDL Cholesterol HDL Cholesterol Lipase 2621 H Urine Color Urine Clarity Urine pH Ur Specific [place] Urine Protein Urine Glucose (UA) Urine Ketones Urine Occult Blood Urine Nitrite Urine Bilirubin Urine Urobilinogen Ur Leukocyte Esterase Urine RBC Urine WBC Ur Squamous Epith Cells Amorphous Sediment Urine Bacteria Urine Mucus Urine Test 12/03/21 12/03/21 12/03/21 01:25 01:30 01:30 WBC RBC Hgb Hct MCV MCH MCHC RDW Std Deviation RDW Coeff of Megan Plt Count MPV Immature Gran % (Auto) Neut % (Auto) Lymph % (Auto) [place] % (Auto) Eos % (Auto) Baso % (Auto) Absolute Neuts (auto) Absolute Lymphs (auto) Nucleated RBC % Sodium Potassium Chloride Carbon Dioxide Anion Gap BUN Creatinine Estim Creat Clear Calc Est GFR (MDRD) Af Amer Est GFR (MDRD) Non-Af BUN/Creatinine Ratio Glucose Lactic Acid Calcium Magnesium Total Bilirubin Direct Bilirubin AST ALT Alkaline Phosphatase Total Protein Albumin Globulin Triglycerides 255 H Cholesterol 200 LDL Cholesterol 108 VLDL Cholesterol 51 H HDL Cholesterol 41 Lipase Urine Color Yellow Urine Clarity Sl. Cloudy Urine pH 7.0 Ur Specific [place] 1.010 Urine Protein Negative Urine Glucose (UA) Normal Urine Ketones Negative Urine Occult Blood Negative Urine Nitrite Negative Urine Bilirubin Negative Urine Urobilinogen Normal Ur Leukocyte Esterase Negative Urine RBC 0 SEEN Urine WBC 0 SEEN Ur Squamous Epith Cells 0 SEEN Amorphous Sediment 3+ Urine Bacteria 2+ Urine Mucus 0 SEEN Urine Test Negative 12/03/21 05:55 WBC RBC Hgb Hct MCV MCH MCHC RDW Std Deviation RDW Coeff of Megan Plt Count MPV Immature Gran % (Auto) Neut % (Auto) Lymph % (Auto) [place] % (Auto) Eos % (Auto) Baso % (Auto) Absolute Neuts (auto) Absolute Lymphs (auto) Nucleated RBC % Sodium Potassium Chloride Carbon Dioxide Anion Gap BUN Creatinine Estim Creat Clear Calc Est GFR (MDRD) Af Amer Est GFR (MDRD) Non-Af BUN/Creatinine Ratio Glucose Lactic Acid 4.5 H* Calcium Magnesium Total Bilirubin Direct Bilirubin AST ALT Alkaline Phosphatase Total Protein Albumin Globulin Triglycerides Cholesterol LDL Cholesterol VLDL Cholesterol HDL Cholesterol Lipase Urine Color Urine Clarity Urine pH Ur Specific [place] Urine Protein Urine Glucose (UA) Urine Ketones Urine Occult Blood Urine Nitrite Urine Bilirubin Urine Urobilinogen Ur Leukocyte Esterase Urine RBC Urine WBC Ur Squamous Epith Cells Amorphous Sediment Urine Bacteria Urine Mucus Urine Test Radiography Diagnostic Testing: Clinical Impression(s) from Imaging Studies Abdomen/Pelvis CT 12/03/21 00:31 IMPRESSION: Peripancreatic edema and fluid likely indicating at pancreatitis. Clinical laboratory correlation advised. Likely reactive changes involving the antrum, duodenum and common bile duct. A primary duodenitis, enteritis or cholangitis as source is doubtful. There is no abscess, collection, perforation or obstruction. Prior cholecystectomy, mild hepatomegaly, hepatic steatosis, calcified nodule right lobe likely granuloma, mangeled presumed bird''s nest filter in flattened inferior vena cava with extraluminal hardware extension and hysterectomy felt to be stable findings. Electronically Signed: Teresa Sales MD at 7:27 EDT Reading Location ID and State: , Service support , Discharge Plan Triage Chief Complaint: Abd Pain ED Provider: Paul Escamilla Dx/Rx/DC Orders Clinical Impression: Acute pancreatitis, Acute hypokalemia Primary Care Provider: Rin Rivera NP Disposition Disposition: Acute Care [facility]
[2021-12-03] MEDS: Lactated Ringers 1,000 ML 250 ML IV ×2 (09:00→13:27)
[2021-12-03] MEDS: Dicyclomine 10 MG Capsule 20 MG PO ×2 (09:39→17:32)
[2021-12-03] MEDS: Venlafaxine XR 150 MG Capsule PO (09:40)
[2021-12-03] MEDS: Enoxaparin 100 MG/ML Syringe 90 MG SC ×2 (09:40→22:31)
[2021-12-03] MEDS: Acyclovir 200 MG Capsule 400 MG PO ×2 (09:41→22:32)
[2021-12-03] MEDS: Methenamine Hippurate 1 GM Tablet PO (09:41)
[2021-12-03] MEDS: Magnesium Chloride 64 MG Delay Rel.Tablet 128 MG PO (09:41)
[2021-12-03 10:06] LABS: Reflex Lactate? Y
[2021-12-03] MEDS: Lacosamide 100 MG Tablet PO (10:12)
--- NOTE | 2021-12-03 10:50 | CASEMGMT ---
KAY LAWSON assessment: Face to Face with patient for initial transition planning/care coordination assessment. KAY LAWSON introduced self and role at [facility], pt voices understanding and consents to assessment. Pt is lying in bed in no distress on room air. Pt is A/Ox4 and answers all questions appropriately but falls asleep when not stimulated verbally. Care providers, pharmacy, and demographics verified. Presentation: Pt w abd pain that started around 1630 today Admitting dx: Acute pancreatitis PCP: Nicole Specialists: Kanchan, neuro; hangar attendant [facility]erred [facility]acy: [facility] Prescription Benefit: [facility] Living Will/HPOA: Pt does not have LW/HPOA and declines AD info. LNOK: Giancarlo Stevens, sig other; Lizz Patricia, mother Living Arrangements: Pt lives with sig other in mobile home and states no concerns at home. Pt is independent with ADL's. Transportation: Pt drives self and states no transportation concerns. DME/HHC: Pt states no DME or need for any further DME. Pt states no hx of HHC or SNF but has been to [facility] in past. Pt states no concerns with going home at time of discharge. Pt is on disability. Pt states does vape but does not drink ETOH. Pt states no further concerns/needs. CM to follow for any further discharge planning/needs. Advised pt to ask for CM if any further questions/concerns/needs arise, voices understanding. Pt Goal: Home Plan: [place] KAY LAWSON
[2021-12-03 12:23] LABS: Lactic Acid 1.4 mmol/L (0.4-1.9); Potassium 3.5 mmol/L (3.5-5.1)
[2021-12-03] MEDS: Potassium Chloride Oral Tablet 20 MEQ 40 MEQ PO ×2 (13:30→22:31)
--- NOTE | 2021-12-03 15:38 | CHAPLAIN ---
Type of Pastoral Visit ___ Initial Visit ___ Follow-up Visit ___ On-call Visit ___ General Patient Visit ___ Spiritual Assessment ___ Family Conference ___ Bereavement ___ Rapid Response ___ Code Blue ___ Other (describe below) Pastoral Care Referral From ___ Patient ___ Family ___ Nurse ___ Physician ___ Court Security Officer ___ Chart Calculator ___ Other (describe below) Sacrament/Intervention ___ Active listening ___ Anointing ___ Moravian ___ Bereavement ___ Communion ___ Kathleen exploration ___ ___ Life review ___ Prayer ___ Reconciliation ___ Sacrament of Sick ___ Supportive presence ___ Wedding ___ Other (describe below) Pastoral Comments patient states she is trying to rest and deferred visit to another day or time
[2021-12-03] MEDS: Lactated Ringers 1,000 ML 100 ML IV (17:32)
[2021-12-03] MEDS: MELATONIN 10 MG TABLET PO (22:32)
[2021-12-03] MEDS: Lacosamide 100 MG Tablet 200 MG PO (23:14)
[2021-12-04] VITALS (13 sets, daily range): BP systolic 123–139; BP diastolic 75–88; PULSE 79–105; RESP 16–18; TEMP 36.8–37.9; O2SAT 92–96
[2021-12-04] MEDS: HYDROmorphone 1 MG/ML Syringe IV ×5 (02:33→21:53)
[2021-12-04] MEDS: Lactated Ringers 1,000 ML 100 ML IV ×2 (02:36→12:16)
[2021-12-04] MEDS: Acetaminophen 325 MG Tablet 650 MG PO ×3 (05:20→21:07)
[2021-12-04] MEDS: Potassium Chloride Oral Tablet 20 MEQ 40 MEQ PO ×3 (05:21→21:10)
[2021-12-04 06:35] LABS: Absolute Neutrophil Count 15.3 X10^3/uL (2.0-7.7); Basophil# 0.05 X10^3/uL; Basophil% 0.3 % (0-1); Eosinophil# 0.05 X10^3/uL; Eosinophils% 0.3 % (0-5); Hematocrit 37.1 % (37-47); Hemoglobin 12.9 g/dL (12.0-15.0); Lymphocyte % 12.4 % (19-41); Mean Corp Hgb Conc 34.8 g/dL (32-36); Mean Corpuscular Hgb 30.1 pg (27.0-32.0); Mean Corpuscular Volume 86.5 fL (81-99); Mean Platelet Vol. 8.1 fl (6.2-12.0); Monocyte# 0.79 X10^3/uL; Monocyte% 4.3 % (0-10); NRBC Flagged by Analyzer 0 % (0-5); Neutrophil % 82.3 % (47-70); Platelet Count 240 K/mm3 (150-450); RBC Distribution Width SD 38.2 fl (35.1-43.9); Red Blood Count 4.29 M/mm3 (4.2-5.4); White Blood Count 18.6 K/mm3 (4.4-11.0)
[2021-12-04 07:00] LABS: ALB/GLOB Ratio 0.9 RATIO (0.9-2.4); AST(SGOT) 41 U/L (15-37); Alanine Aminotransfer ALT/SGPT 56 U/L (13-56); Albumin, Serum 2.9 g/dL (3.2-5.0); Alkaline Phosphatase 114 U/L (45-117); Anion Gap 5 (5-15); BUN 8 mg/dL (7-18); BUN/Creat Ratio 11.6 RATIO (10-20); Calcium,Total 8.4 mg/dL (8.5-10.1); Chloride 107 mmol/L (98-107); Creatinine, Serum 0.69 mg/dL (0.55-1.02); EST Glomerular Filtration Rate 97 mL/min (>60); Est Glom Filt Rate - Afr Amer 117 mL/min (>60); Estimated Creatinine Clearance 84.27 ml/min; Globulin 3.2 g/dL (2.2-4.2); Glucose 112 mg/dL (74-106); Potassium 3.5 mmol/L (3.5-5.1); Protein, Total 6.1 g/dL (6.4-8.2); Sodium Level 137 mmol/L (136-145)
[2021-12-04] MEDS: Venlafaxine XR 150 MG Capsule PO (10:15)
[2021-12-04] MEDS: Enoxaparin 100 MG/ML Syringe 90 MG SC ×2 (10:15→21:08)
[2021-12-04] MEDS: Methenamine Hippurate 1 GM Tablet PO (10:15)
[2021-12-04] MEDS: Magnesium Chloride 64 MG Delay Rel.Tablet 128 MG PO (10:16)
[2021-12-04] MEDS: Acyclovir 200 MG Capsule 400 MG PO ×2 (10:16→21:08)
[2021-12-04] MEDS: Lacosamide 100 MG Tablet PO (10:17)
[2021-12-04] MEDS: Metoprolol Tartrate 25 MG Tablet PO ×2 (10:20→21:09)
--- NOTE | 2021-12-04 12:50 | PN.HOSP_ITS ---
Subjective Subjective Still has significant epigastric abdominal pain with very little to no appetite. No issues overnight, she did get a little fluid overloaded yesterday so her IV fluids were dropped back to 100 cc an hour Objective Data Objective Data Vital Signs: Vital Signs Temp Pulse Resp BP Pulse Ox 98.3 F 105 H 16 138/88 H 92 12/04/21 10:00 12/04/21 10:20 12/04/21 10:00 12/04/21 10:20 12/04/21 10:00 Oxygen Delivery Method Room Air Weight: 219 lb 9.286 oz Body Mass Index (BMI) 38.9 Intake & Output: Intake and Output for Last 24 Hours 12/03/21 12/04/21 12/05/21 03:59 03:59 03:59 Intake Total 5283.34 / 5283.34 966.67 / 966.67 Output Total 700 / 700 600 / 600 Balance 4583.34 / 4583.34 366.67 / 366.67 Lab / Micro Data Result Diagrams: 12/04/21 06:06 12/04/21 06:06 Labs: Laboratory Results - last 24 hr 12/04/21 06:06: WBC 18.6 H, RBC 4.29, Hgb 12.9, Hct 37.1, MCV 86.5, MCH 30.1, MCHC 34.8, RDW Std Deviation 38.2, RDW Coeff of Megan 12.0, Plt Count 240, MPV 8.1, Immature Gran % (Auto) 0.400, Neut % (Auto) 82.3 H, Lymph % (Auto) 12.4 L, [place] % (Auto) 4.3, Eos % (Auto) 0.3, Baso % (Auto) 0.3, Absolute Neuts (auto) 15.3 H, Absolute Lymphs (auto) 2.30, Nucleated RBC % 0 12/04/21 06:06: Sodium 137, Potassium 3.5, Chloride 107, Carbon Dioxide 25.0, Anion Gap 5, BUN 8, Creatinine 0.69, Estim Creat Clear Calc 84.27, Est GFR (MDRD) Af Amer 117, Est GFR (MDRD) Non-Af 97, BUN/Creatinine Ratio 11.6, Glucose 112 H, Calcium 8.4 L, Total Bilirubin 0.70, AST 41 H, ALT 56, Alkaline Phosphatase 114, Total Protein 6.1 L, Albumin 2.9 L, Globulin 3.2, Albumin/Globulin Ratio 0.9 Physical Exam Const alert, oriented x3 and no apparent distress General Appearance: cooperative HEENT normocephalic and moist oral mucous membranes Eyes PERRL, EOMs intact bilaterally and conjunctivae normal Neck supple and no JVD Resp normal respiratory effort, no retractions, no use of accessory muscles and clear to auscultation bilaterally Auscultation: Negative for crackles, rales, rhonchi or wheezes Cardio regular rate, regular rhythm, S1 normal heart sound, S2 normal heart sound and no murmurs GI soft to palpation and non-distended; Negative for hepatosplenomegaly Palpation: tender epigastric Extremity General Extremity: edema; Negative for clubbing or cyanosis Skin no rashes or lesions noted Neuro no focal motor deficits and no sensory deficits noted Psych affect normal Appearance: appropriate Assessment & Plan Assessment/Plan (1) Acute pancreatitis: QUALIFIERS: Pancreatitis type: unspecified pancreatitis type Acute pancreatitis complication: unspecified Qualified Code(s): K85.90 - Acute pancreatitis without necrosis or infection, unspecified PLAN: 1. Acute pancreatitis ?She has a history of multiple episodes pancreatitis initially thought to be due to gallbladder however she is status post cholecystectomy and then she did have a history of alcoholism ?Previous lipid panels demonstrated normal triglycerides and on repeat here there only 255, and consistent with a cause for pancreatitis ?Continue with pain meds, n.p.o., IV fluids ?May benefit from outpatient gastroenterology evaluation ?Once her pain improves can start feeding a low-fat diet 2. History of PE secondary to factor V Leiden -Has an IVC filter, she is to be on Coumadin 3. Seizures -She has been stable on her zonisamide and lacosamide -Continue with her home medications when she is stable to take p.o. 4. History of drug abuse and alcohol abuse/depression/anxiety -Continue with hydroxyzine and Effexor ?Continue with Klonopin, clonidine -Continue with ropinirole DVT: Lovenox Charges/Coding Visit Charges Inpatient E&M: 41770 Subs Hosp L2
[2021-12-04] MEDS: Dicyclomine 10 MG Capsule 20 MG PO (16:26)
[2021-12-04] MEDS: MELATONIN 10 MG TABLET PO (21:08)
[2021-12-04] MEDS: hydrOXYzine PAM 25 MG Capsule 50 MG PO (21:10)
[2021-12-04] MEDS: ZONISAMIDE 100 MG CAPSULE 200 MG PO (21:10)
[2021-12-04] MEDS: 0.9% Saline Lock 10 ML Syringe IV (21:53)
[2021-12-04] MEDS: Lactated Ringers 1,000 ML 50 ML IV (21:53)
[2021-12-04] MEDS: Lacosamide 100 MG Tablet 200 MG PO (21:54)
[2021-12-05] VITALS (11 sets, daily range): BP systolic 138–142; BP diastolic 82–87; PULSE 79–107; RESP 16–18; TEMP 36.2–37.7; O2SAT 92–97
[2021-12-05] MEDS: Dicyclomine 10 MG Capsule 20 MG PO ×2 (00:26→08:15)
[2021-12-05] MEDS: Ondansetron 4 MG/2 ML Vial IV ×3 (03:36→19:24)
[2021-12-05] MEDS: HYDROmorphone 1 MG/ML Syringe IV ×4 (03:36→19:25)
[2021-12-05] MEDS: 0.9% Saline Lock 10 ML Syringe IV ×4 (03:36→14:57)
[2021-12-05 05:28] LABS: Absolute Lymphocyte Count 2.35 X10^3/uL (0.83-4.51); Absolute Neutrophil Count 13.9 X10^3/uL (2.0-7.7); Basophil# 0.03 X10^3/uL; Basophil% 0.2 % (0-1); Eosinophil# 0.25 X10^3/uL; Eosinophils% 1.4 % (0-5); Hematocrit 33.9 % (37-47); Hemoglobin 11.7 g/dL (12.0-15.0); Lymphocyte # 2.35 X10^3/ul (0.83-4.51); Lymphocyte % 13.5 % (19-41); Mean Corp Hgb Conc 34.5 g/dL (32-36); Mean Corpuscular Volume 89.7 fL (81-99); Mean Platelet Vol. 8.6 fl (6.2-12.0); Monocyte# 0.78 X10^3/uL; Monocyte% 4.5 % (0-10); NRBC Flagged by Analyzer 0 % (0-5); Neutrophil # 13.89 X10^3/uL (2.7-7.7); Neutrophil % 79.7 % (47-70); Platelet Count 256 K/mm3 (150-450); RBC Distribution Width CV 12.3 % (11.6-14.6); RBC Distribution Width SD 40.4 fl (35.1-43.9); Red Blood Count 3.78 M/mm3 (4.2-5.4); White Blood Count 17.4 K/mm3 (4.4-11.0)
[2021-12-05 06:07] LABS: Anion Gap 3 (5-15); BUN 7 mg/dL (7-18); BUN/Creat Ratio 10.6 RATIO (10-20); Calcium,Total 8.4 mg/dL (8.5-10.1); Chloride 108 mmol/L (98-107); Creatinine, Serum 0.66 mg/dL (0.55-1.02); EST Glomerular Filtration Rate 102 mL/min (>60); Est Glom Filt Rate - Afr Amer 123 mL/min (>60); Estimated Creatinine Clearance 88.11 ml/min; Glucose 123 mg/dL (74-106); Potassium 4.1 mmol/L (3.5-5.1); Sodium Level 136 mmol/L (136-145)
[2021-12-05] MEDS: Potassium Chloride Oral Tablet 20 MEQ 40 MEQ PO ×3 (06:27→20:53)
[2021-12-05] MEDS: Metoprolol Tartrate 25 MG Tablet PO ×2 (08:13→20:53)
[2021-12-05] MEDS: Venlafaxine XR 150 MG Capsule PO (08:14)
[2021-12-05] MEDS: Enoxaparin 100 MG/ML Syringe 90 MG SC ×2 (08:14→20:54)
[2021-12-05] MEDS: Methenamine Hippurate 1 GM Tablet PO (08:14)
[2021-12-05] MEDS: Acyclovir 200 MG Capsule 400 MG PO (08:15)
[2021-12-05] MEDS: Magnesium Chloride 64 MG Delay Rel.Tablet 128 MG PO (08:15)
--- NOTE | 2021-12-05 11:02 | PN.HOSP_ITS ---
Subjective Subjective Doing well, pain is improved and she is tolerating a diet though it does cause a little bit of an increase in her pain Objective Data Objective Data Vital Signs: Vital Signs Temp Pulse Resp BP Pulse Ox 98.2 F 101 H 16 142/82 H 92 12/05/21 07:57 12/05/21 08:13 12/05/21 07:57 12/05/21 08:13 12/05/21 07:57 Oxygen Delivery Method Room Air Weight: 219 lb 9.286 oz Body Mass Index (BMI) 38.9 Intake & Output: Intake and Output for Last 24 Hours 12/04/21 12/05/21 12/06/21 03:59 03:59 03:59 Intake Total 5283.34 / 5283.34 2307.50 / 2307.50 480 / 480 Output Total 700 / 700 600 / 600 Balance 4583.34 / 4583.34 1707.50 / 1707.50 480 / 480 Lab / Micro Data Result Diagrams: 12/05/21 04:51 12/05/21 04:51 Labs: Laboratory Results - last 24 hr 12/05/21 04:51: WBC 17.4 H, RBC 3.78 L, Hgb 11.7 L, Hct 33.9 L, MCV 89.7, MCH 31.0, MCHC 34.5, RDW Std Deviation 40.4, RDW Coeff of Megan 12.3, Plt Count 256, MPV 8.6, Immature Gran % (Auto) 0.700, Neut % (Auto) 79.7 H, Lymph % (Auto) 13.5 L, [place] % (Auto) 4.5, Eos % (Auto) 1.4, Baso % (Auto) 0.2, Absolute Neuts (auto) 13.9 H, Absolute Lymphs (auto) 2.35, Nucleated RBC % 0 12/05/21 04:51: Sodium 136, Potassium 4.1, Chloride 108 H, Carbon Dioxide 25.0, Anion Gap 3 L, BUN 7, Creatinine 0.66, Estim Creat Clear Calc 88.11, Est GFR (MDRD) Af Amer 123, Est GFR (MDRD) Non-Af 102, BUN/Creatinine Ratio 10.6, Glucose 123 H, Calcium 8.4 L Micro: Microbiology 12/03/21 01:30 Urine, Clean Catch Urine Culture - Final Presumptive Lactobacillus sp. Physical Exam Narrative Const alert, oriented x3 and no apparent distress General Appearance: cooperative HEENT normocephalic and moist oral mucous membranes Eyes PERRL, EOMs intact bilaterally and conjunctivae normal Neck supple and no JVD Resp normal respiratory effort, no retractions, no use of accessory muscles and clear to auscultation bilaterally Auscultation: Negative for crackles, rales, rhonchi or wheezes Cardio regular rate, regular rhythm, S1 normal heart sound, S2 normal heart sound and no murmurs GI soft to palpation, non-tender and non-distended; Negative for hepatosplenomegaly Extremity no clubbing, cyanosis or edema Skin no rashes or lesions noted Neuro no focal motor deficits and no sensory deficits noted Psych affect normal Appearance: appropriate Assessment & Plan Assessment/Plan (1) Acute pancreatitis: QUALIFIERS: Pancreatitis type: unspecified pancreatitis type Acute pancreatitis complication: unspecified Qualified Code(s): K85.90 - Acute pancreatitis without necrosis or infection, unspecified PLAN: 1. Acute pancreatitis ?She has a history of multiple episodes pancreatitis initially thought to be due to gallbladder however she is status post cholecystectomy and then she did have a history of alcoholism ?Previous lipid panels demonstrated normal triglycerides and on repeat here there only 255, and inconsistent with a cause for pancreatitis ?Continue with pain meds, low fat diet, if she is able to take in enough p.o. can discontinue IV fluids ?May benefit from outpatient gastroenterology evaluation 2. History of PE secondary to factor V Leiden -Has an IVC filter, she use to be on Coumadin 3. Seizures -She has been stable on her zonisamide and lacosamide -Continue with her home medications when she is stable to take p.o. 4. History of drug abuse and alcohol abuse/depression/anxiety -Continue with hydroxyzine and Effexor ?Continue with Klonopin, clonidine -Continue with ropinirole DVT: Lovenox Charges/Coding Visit Charges Inpatient E&M: 37476 Subs Hosp L2
[2021-12-05] MEDS: Lacosamide 100 MG Tablet PO (12:15)
[2021-12-05] MEDS: Acetaminophen 325 MG Tablet 650 MG PO ×2 (12:19→21:07)
[2021-12-05] MEDS: Lactated Ringers 1,000 ML 50 ML IV (16:08)
[2021-12-05] MEDS: oxyCODONE 5 MG Tablet PO ×2 (16:52→21:07)
[2021-12-05] MEDS: MELATONIN 10 MG TABLET PO (20:55)
[2021-12-05] MEDS: hydrOXYzine PAM 25 MG Capsule 50 MG PO (20:56)
[2021-12-05] MEDS: ZONISAMIDE 100 MG CAPSULE 200 MG PO (20:58)
[2021-12-05] MEDS: Lacosamide 100 MG Tablet 200 MG PO (21:34)
[2021-12-06] MEDS: HYDROmorphone 1 MG/ML Syringe IV (01:12)
[2021-12-06] MEDS: 0.9% Saline Lock 10 ML Syringe IV ×2 (01:12→09:20)
[2021-12-06] MEDS: hydrOXYzine PAM 25 MG Capsule 50 MG PO (02:11)
[2021-12-06 02:15] VITALS: BP 136/90; PULSE 80; RESP 18; TEMP 37.3; O2SAT 94
[2021-12-06 03:23] VITALS: PULSE 85
[2021-12-06] MEDS: Acetaminophen 325 MG Tablet 650 MG PO ×2 (03:32→10:19)
[2021-12-06] MEDS: oxyCODONE 5 MG Tablet PO ×2 (03:33→09:21)
[2021-12-06 05:45] LABS: Absolute Lymphocyte Count 1.58 X10^3/uL (0.83-4.51); Absolute Neutrophil Count 13.2 X10^3/uL (2.0-7.7); Basophil# 0.03 X10^3/uL; Basophil% 0.2 % (0-1); Eosinophils% 1.3 % (0-5); Hematocrit 29.9 % (37-47); Hemoglobin 10.1 g/dL (12.0-15.0); Lymphocyte # 1.58 X10^3/ul (0.83-4.51); Lymphocyte % 9.9 % (19-41); Mean Corp Hgb Conc 33.8 g/dL (32-36); Mean Corpuscular Hgb 29.7 pg (27.0-32.0); Mean Corpuscular Volume 87.9 fL (81-99); Mean Platelet Vol. 8.9 fl (6.2-12.0); Monocyte# 0.89 X10^3/uL; Monocyte% 5.6 % (0-10); NRBC Flagged by Analyzer 0 % (0-5); Neutrophil # 13.21 X10^3/uL (2.7-7.7); Neutrophil % 82.6 % (47-70); Platelet Count 261 K/mm3 (150-450); RBC Distribution Width CV 12.2 % (11.6-14.6); RBC Distribution Width SD 39.5 fl (35.1-43.9)
[2021-12-06] MEDS: Potassium Chloride Oral Tablet 20 MEQ 40 MEQ PO (05:47)
[2021-12-06 06:22] LABS: BUN 5 mg/dL (7-18); Creatinine, Serum 0.53 mg/dL (0.55-1.02); Estimated Creatinine Clearance 109.72 ml/min; Glucose 109 mg/dL (74-106)
[2021-12-06 06:23] LABS: Anion Gap 6 (5-15); BUN/Creat Ratio 9.4 RATIO (10-20); Calcium,Total 8.5 mg/dL (8.5-10.1); Chloride 108 mmol/L (98-107); EST Glomerular Filtration Rate 131 mL/min (>60); Est Glom Filt Rate - Afr Amer 159 mL/min (>60); Potassium 4.1 mmol/L (3.5-5.1); Sodium Level 135 mmol/L (136-145)
[2021-12-06] MEDS: Ondansetron 4 MG/2 ML Vial IV (06:52)
[2021-12-06 07:00] VITALS: PULSE 79
[2021-12-06 07:40] VITALS: O2SAT 94
[2021-12-06 08:30] VITALS: BP 146/85; PULSE 84; RESP 16; TEMP 36.9; O2SAT 97
[2021-12-06] MEDS: proCHLORPERazine 10 MG/2 ML Vial 5 MG IV (09:20)
--- NOTE | 2021-12-06 10:54 | DCINST_ITS ---
Discharge Instructions Diet Discharge Diet: Low fat / Low cholesterol Activity Discharge Activity: Return to Normal Activity Dressing / Incision Call your doctor if you observe: Fever of 101 or Higher, Shortness of breath, Dizziness, Fainting spells, Swelling in the ankles, Chest pain and Increased palpitations (irregular heartbeat) Follow Up Care Test Results: Test results from this visit will be discussed in further detail at your follow-up appointment, if applicable. Discharge Plan Admission Admit Date/Time: 12/03/21 06:08 Attending Provider: Brandon Cox Primary Care Provider: Rin Rivera [employer] PHOTOGRAPHER Discharge Orders/Prescriptions Prescriptions: New oxycodone-acetaminophen [Endocet] 5-325 mg tablet 1 tab PO Q6H PRN (Reason: pain) 4 Days Qty: 12 RF: 0 Continued furosemide 40 MG tablet 40 mg PO BID RF: 0 potassium chloride 10 MEQ tablet 40 meq PO TID RF: 0 valacyclovir [Valtrex] 500 MG tablet 500 mg PO DAILY RF: 0 melatonin 3 MG capsule 10 mg PO QHS RF: 0 lacosamide 100 MG tablet 100 mg PO DAILY RF: 0 magnesium oxide 200 MG tablet 400 mg PO BID RF: 0 lacosamide 100 MG tablet 200 mg PO QHS RF: 0 dicyclomine 10 MG capsule 20 mg PO 4X/DAY PRN (Reason: ABD DISCOMFORT) RF: 0 Linzess 290 mcg capsule 290 mcg PO DAILY RF: 0 hydroxyzine pamoate 50 mg Capsule 50 mg PO Q6H PRN (Reason: ANXIETY/INSOMNIA) RF: 0 spironolactone 25 mg Tablet 25 mg PO DAILY RF: 0 zonisamide [Zonegran] 100 mg Capsule 200 mg PO QHS RF: 0 clonidine HCl 0.2 mg Tablet 0.2 mg PO DAILY PRN (Reason: Anxiety) RF: 0 methenamine hippurate [Hiprex] 1 gram Tablet 1 g PO DAILY RF: 0 Zubsolv 8.6-2.1 mg Tablet, Sublingual 2 tab SUBLINGUAL DAILY RF: 0 ondansetron 4 MG tablet,disintegrating 4 mg PO Q6H PRN PRN (Reason: Nausea) RF: 0 ascorbic acid (vitamin C) [Vitamin C] 1,000 mg Tablet 1 g PO DAILY RF: 0 clonazepam [Klonopin] 0.5 mg Tablet 0.5 mg PO BID PRN (Reason: Seizures) RF: 0 venlafaxine [Effexor XR] 150 mg Capsule,Extended Release 24hr 150 mg PO DAILY RF: 0 hydroxyzine HCl 50 mg Tablet 50 mg PO QHS RF: 0 metoprolol tartrate 25 mg Tablet 25 mg PO BID RF: 0 nitrofurantoin monohyd/m-cryst [Macrobid] 100 mg Capsule 100 mg PO PRN PRN (Reason: INTERCOURSE) RF: 0 biotin 10,000 mcg Tablet,Disintegrating 10,000 mcg PO DAILY RF: 0 Referrals / Follow Up: Leonidas Mello DO [STAFF PHYSICIAN] - Within 3 Months Rin Rivera NP, [employer] [Primary Care Provider] - Within 1 Week Disposition Disposition (needs filled in before D/C Order can be placed): Home, Self Care
--- NOTE | 2021-12-06 11:12 | DS.PCM_ITS ---
Providers Date of Admission: 12/03/21 Primary Care Physician: AMIE Gardner Reason For Visit: ACUTE PANCREATITIS Diagnosis Discharge Diagnosis (1) Acute pancreatitis: Status: Resolved Code(s): K85.90 - Acute pancreatitis without necrosis or infection, unspecified Qualifiers: Pancreatitis type: unspecified pancreatitis type Acute pancreatitis complication: unspecified Qualified Code(s): K85.90 - Acute pancreatitis wit hout necrosis or infection, unspecified Medications at Discharge Home Medications furosemide 40 mg PO BID 09/10/16 potassium chloride 40 meq PO TID 09/10/16 valacyclovir [Valtrex] 500 mg PO DAILY 10/25/18 melatonin 10 mg PO QHS 05/26/19 lacosamide 100 mg PO DAILY 10/09/20 lacosamide 200 mg PO QHS 10/09/20 magnesium oxide 400 mg PO BID 10/09/20 dicyclomine 20 mg PO 4X/DAY PRN 02/28/21 Linzess 290 mcg PO DAILY 05/28/21 Zubsolv 2 tab SUBLINGUAL DAILY 12/03/21 ascorbic acid (vitamin C) [Vitamin C] 1 g PO DAILY 12/03/21 biotin 10,000 mcg PO DAILY 12/03/21 clonazepam [Klonopin] 0.5 mg PO BID PRN 12/03/21 clonidine HCl 0.2 mg PO DAILY PRN 12/03/21 hydroxyzine HCl 50 mg PO QHS 12/03/21 hydroxyzine pamoate 50 mg PO Q6H PRN 12/03/21 methenamine hippurate [Hiprex] 1 g PO DAILY 12/03/21 metoprolol tartrate 25 mg PO BID 12/03/21 nitrofurantoin monohyd/m-cryst [Macrobid] 100 mg PO PRN PRN 12/03/21 ondansetron 4 mg PO Q6H PRN PRN 12/03/21 spironolactone 25 mg PO DAILY 12/03/21 venlafaxine [Effexor XR] 150 mg PO DAILY 12/03/21 zonisamide [Zonegran] 200 mg PO QHS 12/03/21 oxycodone-acetaminophen [Endocet] 1 tab PO Q6H PRN 4 Days #12 tab 12/06/21 Hospital Course Operations None Procedures None Summary of Care Provided Minutes Spent on Discharge: 50 Hospital Course: Per HPI: DOROTHEA CLARK, is a 45 F with a significant history of cholecystectomy; 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 She described the pain as cramping and sharp. The pain radiates to her left ribs and to her back. The pain aggravates with movement and with taking a deep breath. She denies any ameliorating factors to the pain. The pain has been progressively worsening. She described the pain as intensity 8 out of 10. Because of difficulty in obtaining an IV line for CT abdomen with contrast, a femoral central line was placed at the ED. Hospital Course: 1. Acute pancreatitis?45-year-old female with previous history of drug abuse and alcoholism presents to the hospital with abdominal pain. Her lipase was initially elevated and CT scan showed peripancreatic fat stranding consistent with acute pancreatitis. She was made n.p.o. and started on IV fluids as well as aggressive pain medication. She did have fairly significant improvement in her symptoms and so her diet was slowly advanced. Today on the day of discharge she denied any significant abdominal pain though states that she still has some back pain. Had an extensive discussion with her today in terms of discharge planning, this morning she stated that she had significant nausea so I discussed with her the possibility of trying her on some Compazine which she agreed to and then seeing how she did after lunch. I discussed with her that if she was still having some nausea and increased back pain after lunch that I would consult gastroenterology while she is here and she was agreeable to this plan. I was notified later in the morning that the patient was tearful and angry and was demanding to go home because we were not doing anything for her despite the fact that her pain had almost completely resolved in her abdomen. She angrily stated to the nurses that I told her she was going home today and that if she was going to go home she might will just go home. She does not have any fevers or chills and her leukocytosis was likely reactive to the inflammation she has f rom her pancreatitis as it is coming down without any antibiotics and there is no source of infection on CT scan. I went down to talk to her at which point I asked her what was going on and and what the issues were. She states that we were not doing anything for her I reminded her the conversation we had this morning what the plan was and she denied ever having a conversation. She states that she thinks that were not doing anything for her because of an interaction we had 3 years ago during another episode of pancreatitis. She states that the nurses are not taking care of her pain because they are not giving her the Tylenol with the oxycodone even though this morning when I evaluated her she said that she did not have any pain and on palpation she truly did not have any pain reaction. While having this conversation her mother was on speaker phone and recognized that her daughter can be difficult when in pain. was very tearful during this and I discussed with her and her mother as to what the plan was going to be that we would see how she did after lunch, if she still had some nausea and pain we would get gastroenterology involved to give an opinion as to what we could further do. She is adamant that we are not doing anything and that she would like to go home and that she will get better sleep at home. I discussed with her the risks of going home she expressed understanding of the risks and benefits of going home and she would still like to go home. I dimple gnize her history of drug use ever given the fact that she does have acute pancreatitis we will give her a few days of Percocets and recommend close outpatient follow-up with her PCP and also recommended to follow-up with gastroenterology given her multiple episodes of pancreatitis. Her triglycerides were less than 500 and she does have a history of a prior cholecystectomy. 2. History of PE secondary to factor V Leiden with IVC filter, epilepsy, history of drug abuse and alcohol abuse, depression, anxiety all chronic medical conditions which complicate her care. Her home medications were continued where appropriate. Recommend close outpatient follow-up with her PCP. Physical Exam Narrative Const alert, oriented x3 and no apparent distress General Appearance: cooperative HEENT normocephalic and moist oral mucous membranes Eyes PERRL, EOMs intact bilaterally and conjunctivae normal Neck supple and no JVD Resp normal respiratory effort, no retractions, no use of accessory muscles and clear to auscultation bilaterally Auscultation: Negative for crackles, rales, rhonchi or wheezes Cardio regular rate, regular rhythm, S1 normal heart sound, S2 normal heart sound and no murmurs GI soft to palpation, non-tender and non-distended; Negative for hepatosplenomegaly Palpation: tender epigastric Extremity no clubbing, cyanosis or edema General Extremity: edema; Negative for clubbing or cyanosis Skin no rashes or lesions noted Neuro no focal motor deficits and no sensory deficits noted Psych affect normal Appearance: appropriate Weight / BMI Weight Weight: 219 lb 9.286 oz Body Mass Index (BMI) 38.9 ABG / Lab / Microbiology Data Result Diagrams: 12/06/21 04:36 12/06/21 04:36 Laboratory: Laboratory Results - last 24 hr 12/06/21 04:36: WBC 16.0 H, RBC 3.40 L, Hgb 10.1 L, Hct 29.9 L, MCV 87.9, MCH 29.7, MCHC 33.8, RDW Std Deviation 39.5, RDW Coeff of Megan 12.2, Plt Count 261, MPV 8.9, Immature Gran % (Auto) 0.400, Neut % (Auto) 82.6 H, Lymph % (Auto) 9.9 L, [place] % (Auto) 5.6, Eos % (Auto) 1.3, Baso % (Auto) 0.2, Absolute Neuts (auto) 13.2 H, Absolute Lymphs (auto) 1.58, Nucleated RBC % 0 12/06/21 04:36: Sodium 135 L, Potassium 4.1, Chloride 108 H, Carbon Dioxide 21.0, Anion Gap 6, BUN 5 L, Creatinine 0.53 L, Estim Creat Clear Calc 109.72, Est GFR (MDRD) Af Amer 159, Est GFR (MDRD) Non-Af 131, BUN/Creatinine Ratio 9.4 L, Glucose 109 H, Calcium 8.5 Microbiology: Microbiology 12/03/21 01:30 Urine, Clean Catch Urine Culture - Final Presumptive Lactobacillus sp. D/C Instructions Discharge Diet: Low fat / Low cholesterol Call your doctor if you observe: Fever of 101 or Higher, Shortness of breath, Dizziness, Fainting spells, Swelling in the ankles, Chest pain and Increased palpitations (irregular heartbeat) Meaningful Use Info Meaningful Use Diagnoses (Choose all that apply): None applicable Discharge Plan Admission Admit Date/Time: 12/03/21 06:08 Attending Provider: Brandon Cox Primary Care Provider: Rin Rivera NP Discharge Orders/Prescriptions Prescriptions: New oxycodone-acetaminophen [Endocet] 5-325 mg tablet 1 tab PO Q6H PRN (Reason: pain) 4 Days Qty: 12 RF: 0 Continued furosemide 40 MG tablet 40 mg PO BID RF: 0 potassium chloride 10 MEQ tablet 40 meq PO TID RF: 0 valacyclovir [Valtrex] 500 MG tablet 500 mg PO DAILY RF: 0 melatonin 3 MG capsule 10 mg PO QHS RF: 0 lacosamide 100 MG tablet 100 mg PO DAILY RF: 0 magnesium oxide 200 MG tablet 400 mg PO BID RF: 0 lacosamide 100 MG tablet 200 mg PO QHS RF: 0 dicyclomine 10 MG capsule 20 mg PO 4X/DAY PRN (Reason: ABD DISCOMFORT) RF: 0 Linzess 290 mcg capsule 290 mcg PO DAILY RF: 0 hydroxyzine pamoate 50 mg Capsule 50 mg PO Q6H PRN (Reason: ANXIETY/INSOMNIA) RF: 0 spironolactone 25 mg Tablet 25 mg PO DAILY RF: 0 zonisamide [Zonegran] 100 mg Capsule 200 mg PO QHS RF: 0 clonidine HCl 0.2 mg Tablet 0.2 mg PO DAILY PRN (Reason: Anxiety) RF: 0 methenamine hippurate [Hiprex] 1 gram Tablet 1 g PO DAILY RF: 0 Zubsolv 8.6-2.1 mg Tablet, Sublingual 2 tab SUBLINGUAL DAILY RF: 0 ondansetron 4 MG tablet,disintegrating 4 mg PO Q6H PRN PRN (Reason: Nausea) RF: 0 ascorbic acid (vitamin C) [Vitamin C] 1,000 mg Tablet 1 g PO DAILY RF: 0 clonazepam [Klonopin] 0.5 mg Tablet 0.5 mg PO BID PRN (Reason: Seizures) RF: 0 venlafaxine [Effexor XR] 150 mg Capsule,Extended Release 24hr 150 mg PO DAILY RF: 0 hydroxyzine HCl 50 mg Tablet 50 mg PO QHS RF: 0 metoprolol tartrate 25 mg Tablet 25 mg PO BID RF: 0 nitrofurantoin monohyd/m-cryst [Macrobid] 100 mg Capsule 100 mg PO PRN PRN (Reason: INTERCOURSE) RF: 0 biotin 10,000 mcg Tablet,Disintegrating 10,000 mcg PO DAILY RF: 0 Referrals / Follow Up: Leonidas Mello DO [STAFF PHYSICIAN] - Within 3 Months Rin Rivera NP, [employer] [Primary Care Provider] - Within 1 Week Disposition Disposition (needs filled in before D/C Order can be placed): Home, Self Care Charges/Coding Visit Charges Inpatient E&M: 69283 Disch Hosp
--- NOTE | 2021-12-06 11:20 | NURSING ---
This RN in to assess patient. Patient voiced concerns about how she was not happy with her doctor and that he was not meeting her needs/requests. This RN asked patient specifically what he had not done that she wanted and she could not give me and answer. She stated that I did not ask him for anything because I know he wont give it to me anyway Patient demanding to go home and refusing to take any medications other than pain meds. Dr Westbrook made aware. States he did not know about any of these concerns the patient had and did not know she was upset. Dr. westbrook in to address the issue directly with the patient.
[2021-12-06 12:44] VITALS: BP 137/76; PULSE 75; RESP 16; TEMP 36.8; O2SAT 98
--- NOTE | 2021-12-06 13:49 | NURSING ---
Patient refused all morning medications
== END 2021-12-06 13:46 | disposition home or self-care (01) | DRG 439 ==
LOC: ED 12-03 02:26 → PCU 12-03 06:52
PROVIDERS: Admitting Provider Hospitalist; Emergency Provider Emergency Medicine; PCP Nurse Practitioner Family; Visit Provider Family Medicine
DX: K85.90 Acute pancreatitis without necrosis or infection, unspecified (principal); D68.2 Hereditary deficiency of other clotting factors; G40.909 Epilepsy, unspecified, not intractable, without status epilepticus; F11.11 Opioid abuse, in remission; E78.5 Hyperlipidemia, unspecified; I10 Essential (primary) hypertension; F17.290 Nicotine dependence, other tobacco product, uncomplicated; E87.6 Hypokalemia; F41.9 Anxiety disorder, unspecified; B00.1 Herpesviral vesicular dermatitis; F10.11 Alcohol abuse, in remission; Z79.899 Other long term (current) drug therapy; Z79.891 Long term (current) use of opiate analgesic; Z86.711 Personal history of pulmonary embolism; Z95.828 Presence of other vascular implants and grafts
CPT/HCPCS: 36415; 36556; 74177; 80048; 80053; 80061; 80076; 81001; 81025; 83605; 83690; 83735; 84132; 85025; 87086; 87088; 93005; 97802; 99285; 99406; J7120; Q9967; A4216; J2405

== ENCOUNTER 2022-04-22 04:08 | Emergency (ER) | payer MEDICARE, SELFPAY ==
[2022-04-22 04:09] VITALS: BP 139/94; PULSE 93; RESP 16; TEMP 36.7; O2SAT 98; BMI 36.5
--- NOTE | 2022-04-22 04:40 | RAD_ITS ---
INDICATION: pain EXAMINATION/TECHNIQUE: X-RAY - XR Abdomen Series W/ Chest 1 View: Frontal view chest with flat and upright frontal views of the abdomen COMPARISON: CT abdomen and pelvis from 12/03/2021 FINDINGS: --Chest: LINES/DEVICES: None. LUNGS: Small benign granulomatous calcifications again noted within right lung. No pulmonary edema or focal airspace consolidation. No pneumothorax or pleural effusion. MEDIASTINUM AND CARDIOVASCULAR STRUCTURES: Stable upper limits normal heart size. Central airways and mediastinal contour are unremarkable. BONES AND SOFT TISSUES: Chronic right rib fractures. --Abdomen: BOWEL GAS PATTERN: Non-obstructive. No pathologic bowel or stomach distention. FREE AIR: None visualized. ORGANOMEGALY: Not seen. CALCIFICATIONS: Stable appearance of IVC filter with splayed filter limbs. Cholecystectomy clips also noted. BONES AND SOFT TISSUES: No acute findings. RAD/Acute Abdomen Inc Chest IMPRESSION: No acute findings. Electronically Signed: Meño Stokes MD at 6:33 EDT ,
--- NOTE | 2022-04-22 04:45 | EX.ED.DYSGE1 ---
HPI History of Present Illness Chief Complaint: Abd Pain Narrative Narrative: Patient is a 46-year-old female with past medical history of pancreatitis as well as pneumonia and history of drug and alcohol abuse. She states that she was exposed to her boyfriend who tested positive for COVID and she has had fevers with fatigue muscle aches headache and sore throat. She also states that she has been having fluctuation between diarrhea and constipation and midepigastric abdominal pain. She reports the pain has been there for approximately 6 weeks but feels it is slightly worsened in the last few days. She states she cannot see her GI doctor for another 2 months and with her new constellation of symptoms concerning for COVID as well as her belly pain she presents for evaluation [facility] Medical History Anxiety Depression Depression DVT (deep venous thrombosis) Epilepsy Factor V Leiden mutation Former smoker GERD (gastroesophageal reflux disease) History of CVA (cerebrovascular accident) History of pancreatitis History of pulmonary embolus (PE) Hyperlipidemia Hypertension Pancreatitis Presence of IVC filter Pulmonary embolism Seizure disorder Stroke/cerebrovascular accident Substance abuse Home Medications furosemide 40 mg tablet 40 mg PO BID water pill 09/10/16 [History Last Taken 09/09/19] potassium chloride 10 mEq tablet,extended release(part/cryst) 40 meq PO TID supplment 09/10/16 [History Last Taken 09/09/19] valacyclovir 500 mg tablet (Valtrex) 500 mg PO DAILY herpes 10/25/18 [History Last Taken 09/09/19] melatonin 3 mg capsule 10 mg PO QHS sleep 05/26/19 [History Last Taken 09/08/19] magnesium oxide 400 mg PO BID Check with primary doctor 10/09/20 [History Last Taken Unknown] dicyclomine 10 mg capsule 20 mg PO 4X/DAY PRN ABD DISCOMFORT 02/28/21 [History Last Taken Unknown] linaclotide 290 mcg capsule (Linzess) 290 mcg PO DAILY Check with primary doctor 05/28/21 [History Last Taken Unknown] ascorbic acid (vitamin C) 1,000 mg tablet (Vitamin C) 1 g PO DAILY Check with primary doctor 12/03/21 [History Last Taken Unknown] clonazepam 0.5 mg tablet (Klonopin) 0.5 mg PO BID PRN Seizures 12/03/21 [History Last Taken Unknown] clonidine HCl 0.2 mg tablet 0.2 mg PO DAILY PRN Anxiety 12/03/21 [History Last Taken Unknown] hydroxyzine HCl 50 mg tablet 50 mg PO QHS Check with primary doctor 12/03/21 [History Last Taken Unknown] methenamine hippurate 1 gram tablet (Hiprex) 1 g PO QHS Check with primary doctor 12/03/21 [History Last Taken Unknown] metoprolol tartrate 25 mg tablet 25 mg PO BID Check with primary doctor 12/03/21 [History Last Taken Unknown] nitrofurantoin monohydrate/macrocrystals 100 mg capsule (Macrobid) 100 mg PO PRN PRN INTERCOURSE 12/03/21 [History Last Taken Unknown] venlafaxine 150 mg capsule,extended release 24 hr (Effexor XR) 150 mg PO DAILY Check with primary doctor 12/03/21 [History Last Taken Unknown] zonisamide 100 mg capsule (Zonegran) 200 mg PO QHS Check with primary doctor 12/03/21 [History Last Taken Unknown] nirmatrelvir 300 mg (150 mg x2)-ritonavir 100 mg tablet,dose pack(EUA) (Paxlovid) See Rx Instructions PO .COMPLEX #30 tabs 04/22/22 [Rx Last Taken Unknown] Allergy/AdvReac Type Severity Reaction Status Date / Time gabapentin [From Neurontin] Allergy Rash Verified 12/02/21 21:09 morphine Allergy HYPOTENSION Verified 12/02/21 21:09 Penicillins Allergy Rash Verified 12/02/21 21:09 Sulfa (Sulfonamide Allergy Rash Verified 12/02/21 21:09 Antibiotics) Family History Other Hyperlipidemia Surgical History (Updated 04/22/22 @ 04:17 by Kelly Minor) H/O: History of appendectomy History of embolic filter insertion History of hysterectomy Hx of cholecystectomy Social History Smoking Status: Current every day smoker tobacco type: e-cigarettes and smokeless tobacco ROS ROS ED Constitutional Constitutional ED: Reports chills and fever(s) ENT ENT ED: Reports sore throat Cardiovascular Cardiovascular: Denies chest pain Respiratory/Chest Respiratory/Chest: Denies cough or dyspnea Gastrointestinal Gastrointestinal: Reports abdominal pain, constipation, diarrhea and nausea; Denies vomiting Genitourinary Genitourinary ED: Denies dysuria Musculoskeletal Musculoskeletal: Reports myalgias Integumentary Denies rash Neurologic Neurologic: Denies headache(s) Hematologic/Lymphatic Hematologic/Lymphatic: Denies easy bleeding or easy bruising EXAM Physical Exam Const Vital Signs: 04/22/22 04:09 Temperature 98.0 F Temperature Source Oral Pulse Rate 93 Respiratory Rate 16 Blood Pressure 139/94 H Blood Pressure Mean 109 Pulse Ox 98 Oxygen Delivery Method Room Air Positive well nourished, well developed and obese General Appearance ED: well developed Nutritional Appearance: obese Eyes PERRL and EOMs intact bilaterally General Eye ED: Negative for scleral icterus Neck supple Resp normal respiratory effort and clear to auscultation bilaterally Cardio regular rate and regular rhythm Rate: other Other Details: Radial pulses are plus 2 out of 4 bilaterally are equal and symmetric GI non-distended GI Narrative: Abdomen is soft and nondistended with normoactive bowel sounds. There is pain on palpation in the midepigastric region without voluntary guarding or rigidity. No pulsatile mass or fluid wave. No increased tympany. Auscultation: normoactive bowel sounds Palpation: soft Extremity normal to inspection Neuro oriented x3 and CN's II-XII intact bilaterally Sensorium / Orientation: alert Psych mental status grossly normal Skin no rashes or lesions noted Skin Narrative: No jaundice MDM MDM MDM Narrative Medical decision making narrative: Patient presented to the ER mildly hypertensive otherwise with stable vitals. She reported known exposure to COVID and did have symptoms such as sore throat congestion headache myalgias fatigue are consistent with it. Rapid COVID was obtained and patient is positive but as she has no signs of respiratory distress there is no need for admission. The patient did report approximately 6 weeks of abdominal pain and on exam she is not distended and bowel sounds are normoactive there is no increased tympany to suggest any type of obstruction. She does have risk factors for obstruction based on her multiple previous abdominal surgeries but exam does not suggest this and chart review shows she has had multiple CT scans so elected to perform an x-ray. X-ray revealed no obvious signs of blockage. In this time laboratory studies are pending as patient does have a history of pancreatitis and the lipase value will help in determining whether a CT is needed. At this time if the blood work reveals no clinically significant findings I do not believe there is need for further work-up and patient can continue to follow-up with her GI doctor to discuss further testing for the cause of her abdominal discomfort Lab Data Attestation: I reviewed the patient's lab results. Labs: Laboratory Results - last 24 hr 04/22/22 04/22/22 05:40 05:40 WBC 4.9 RBC 5.07 Hgb 15.5 H Hct 45.3 MCV 89.3 MCH 30.6 MCHC 34.2 RDW Std Deviation 44.5 H RDW Coeff of Megan 13.7 Plt Count 261 MPV 8.5 Immature Gran % (Auto) 0.400 Neut % (Auto) 59.4 Lymph % (Auto) 28.5 Frontier % (Auto) 11.1 H Eos % (Auto) 0.2 Baso % (Auto) 0.4 Absolute Neuts (auto) 2.9 Absolute Lymphs (auto) 1.39 Nucleated RBC % 0 Sodium 136 Potassium 4.6 Chloride 105 Carbon Dioxide 25.0 Anion Gap 6 BUN 8 Creatinine 0.79 Estim Creat Clear Calc 72.82 Est GFR (MDRD) Af Amer 100 Est GFR (MDRD) Non-Af 82 BUN/Creatinine Ratio 10.1 Glucose 109 H Calcium 8.7 Magnesium 2.5 Total Bilirubin 0.20 Direct Bilirubin 0.07 AST 33 ALT 77 H Alkaline Phosphatase 178 H Total Protein 7.6 Albumin 3.6 Globulin 4.0 Lipase 34 L Radiography Diagnostic Testing: Clinical Impression(s) from Imaging Studies Acute Abdomen Series 04/22/22 04:40 IMPRESSION: No acute findings. Electronically Signed: Meño Stokes MD at 6:33 EDT , Acute abdominal series with 1 view chest as interpreted by the emergency medicine physician reveals a nonobstructive bowel gas pattern without signs of perforation or obstruction. 1 view chest x-ray reveals no acute lung pathology Discharge Plan Triage Chief Complaint: Abd Pain ED Provider: Paul Escamilla Dx/Rx/DC Orders Clinical Impression: COVID-19, Nonspecific abdominal pain Instructions: Abdominal Pain, Coronavirus Disease 2019 (COVID-19): Caring for Yourself or Others Prescriptions: New Paxlovid (EUA) 300 mg (150 mg x 2)-100 mg tablets,dose pack See Rx Instructions .ROUTE .COMPLEX Qty: 30 0RF Rx Instructions: take TWO 150 mg tablets of nirmatrelvir with ONE 100 mg tablet of ritonavir twice daily for 5 days No Action furosemide 40 MG tablet 40 mg PO BID potassium chloride 10 MEQ tablet 40 meq PO TID valacyclovir [Valtrex] 500 MG tablet 500 mg PO DAILY melatonin 3 MG capsule 10 mg PO QHS magnesium oxide 200 MG tablet 400 mg PO BID dicyclomine 10 MG capsule 20 mg PO 4X/DAY PRN (Reason: ABD DISCOMFORT) Linzess 290 mcg capsule 290 mcg PO DAILY Label Comments: take 1 capsule by mouth once daily zonisamide [Zonegran] 100 mg Capsule 200 mg PO QHS clonidine HCl 0.2 mg Tablet 0.2 mg PO DAILY PRN (Reason: Anxiety) methenamine hippurate [Hiprex] 1 gram Tablet 1 g PO QHS ascorbic acid (vitamin C) [Vitamin C] 1,000 mg Tablet 1 g PO DAILY clonazepam [Klonopin] 0.5 mg Tablet 0.5 mg PO BID PRN (Reason: Seizures) venlafaxine [Effexor XR] 150 mg Capsule,Extended Release 24hr 150 mg PO DAILY hydroxyzine HCl 50 mg Tablet 50 mg PO QHS metoprolol tartrate 25 mg Tablet 25 mg PO BID nitrofurantoin monohyd/m-cryst [Macrobid] 100 mg Capsule 100 mg PO PRN PRN (Reason: INTERCOURSE) Primary Care Provider: Rin Rivera NP Referrals: Leonidas Mello DO [Med Staff - Active Staff] - 1 Week if not improving Rin Rivera NP, MUSICAL INSTRUMENT MAKER OR REPAIRER-C [Primary Care Provider] - Activity Restrictions/Additional Instructions: Please continue take your medications as previously directed and follow-up with GI for further evaluation if symptoms persist and return to the ER should you have any further concerns Disposition Disposition: Home, Self Care
[2022-04-22] MEDS: Mag Hydrox/Al Hydrox/Simeth 30 ML UDC PO (05:20)
[2022-04-22] MEDS: Famotidine 200 MG/20 ML MDV 20 MG in 0.9% Normal Saline (Pres. free 8 ML 300 MG IV (05:44)
[2022-04-22] MEDS: 0.9% Normal Saline 1,000 ML 999 ML IV (05:59)
[2022-04-22] MEDS: Ketorolac 15 MG/ML Vial IV (06:11)
[2022-04-22 06:25] LABS: Absolute Lymphocyte Count 1.39 X10^3/uL (0.83-4.51); Absolute Neutrophil Count 2.9 X10^3/uL (2.0-7.7); Basophil# 0.02 X10^3/uL; Basophil% 0.4 % (0-1); Eosinophil# 0.01 X10^3/uL; Eosinophils% 0.2 % (0-5); Hematocrit 45.3 % (37-47); Hemoglobin 15.5 g/dL (12.0-15.0); Lymphocyte # 1.39 X10^3/ul (0.83-4.51); Lymphocyte % 28.5 % (19-41); Mean Corp Hgb Conc 34.2 g/dL (32-36); Mean Corpuscular Hgb 30.6 pg (27.0-32.0); Mean Corpuscular Volume 89.3 fL (81-99); Mean Platelet Vol. 8.5 fl (6.2-12.0); Monocyte# 0.54 X10^3/uL; Monocyte% 11.1 % (0-10); NRBC Flagged by Analyzer 0 % (0-5); Neutrophil # 2.89 X10^3/uL (2.7-7.7); Neutrophil % 59.4 % (47-70); Platelet Count 261 K/mm3 (150-450); RBC Distribution Width CV 13.7 % (11.6-14.6); RBC Distribution Width SD 44.5 fl (35.1-43.9); Red Blood Count 5.07 M/mm3 (4.2-5.4); White Blood Count 4.9 K/mm3 (4.4-11.0)
[2022-04-22 06:29] LABS: AST(SGOT) 33 U/L (15-37); Alanine Aminotransfer ALT/SGPT 77 U/L (13-56); Albumin, Serum 3.6 g/dL (3.2-5.0); Alkaline Phosphatase 178 U/L (45-117); Anion Gap 6 (5-15); BUN 8 mg/dL (7-18); BUN/Creat Ratio 10.1 RATIO (10-20); Bilirubin, Direct 0.07 mg/dL (0.00-0.30); Calcium,Total 8.7 mg/dL (8.5-10.1); Chloride 105 mmol/L (98-107); Creatinine, Serum 0.79 mg/dL (0.55-1.02); EST Glomerular Filtration Rate 82 mL/min (>60); Est Glom Filt Rate - Afr Amer 100 mL/min (>60); Estimated Creatinine Clearance 72.82 ml/min; Glucose 109 mg/dL (74-106); Lipase 34 U/L (73-393); Magnesium 2.5 mg/dL (1.6-2.6); Potassium 4.6 mmol/L (3.5-5.1); Protein, Total 7.6 g/dL (6.4-8.2); Sodium Level 136 mmol/L (136-145)
[2022-04-22 07:06] VITALS: BP 124/66; PULSE 71; RESP 15; O2SAT 98
== END 2022-04-22 07:07 | disposition home or self-care (01) ==
PROVIDERS: Emergency Provider Emergency Medicine; PCP Nurse Practitioner Family; Visit Provider Emergency Medicine
DX: U07.1 COVID-19 (principal); D68.51 Activated protein C resistance; E78.5 Hyperlipidemia, unspecified; R10.9 Unspecified abdominal pain; I10 Essential (primary) hypertension; F17.220 Nicotine dependence, chewing tobacco, uncomplicated; Z86.73 Personal history of transient ischemic attack (TIA), and cerebral infarction without residual deficits; Z86.711 Personal history of pulmonary embolism
CPT/HCPCS: 74022; 80048; 80076; 83690; 83735; 85025; 87428; 96361; 96374; 96375; 99283; J7030; A4216; J3490

== ENCOUNTER 2022-07-06 20:12 | Emergency (ER) | payer MEDICARE, SELFPAY ==
[2022-07-06 20:14] VITALS: BP 149/111; PULSE 137; RESP 18; TEMP 37; O2SAT 96; BMI 37.0
[2022-07-06 20:18] VITALS: PULSE 128
--- NOTE | 2022-07-06 21:07 | EKG12_ITS ---
Test Reason : TACHY Blood Pressure : / mmHG Vent. Rate : 129 BPM Atrial Rate : 129 BPM P-R Int : 134 ms QRS Dur : 086 ms QT Int : 306 ms P-R-T Axes : 018 011 038 degrees QTc Int : 448 ms Sinus tachycardia Possible Left atrial enlargement Incomplete right bundle branch block Poor R wave progression Abnormal ECG Confirmed by ZAMZAM VASQUEZ, JESSE ([id number]), primer expeditor and drier DOROTHEA RUSSELL ([id number]) on 07/08/2022 12:42:41 PM Referred By: EN Confirmed By:JESSE WYMAN MD
--- NOTE | 2022-07-06 21:10 | EDS_ITS ---
HPI <Dr. Juan Clinton MD - Last Filed: 07/06/22 23:03> History of Present Illness Chief Complaint: Mental Status Change Informant: spouse/S.O. Narrative Narrative: All history is through her boyfriend. Patient has been nonverbal for 1 to 2 days. No other issues that he knows of. He does not know of any falls or trauma. He is not sure if she has been taking her medications. He states he knows she did this about a year ago. She had the same event where she just did not speak but everything else work. She was seen at a hospital either here or [place]. She was transferred to a psychiatric facility in [place]. Evidently the patient did get herself dressed but this was likely yesterday. She was able to walk to get in the car. No sign of any weakness of arms or legs or facial weakness. He does not know if there is any acute stress recently that may have caused this. Although its not on her med list she may be on Xarelto. [facility] <Dr. Juan Clinton MD - Last Filed: 07/06/22 23:03> [facility] Medical History Anxiety Depression Depression DVT (deep venous thrombosis) Epilepsy Factor V Leiden mutation Former smoker GERD (gastroesophageal reflux disease) History of CVA (cerebrovascular accident) History of pancreatitis History of pulmonary embolus (PE) Hyperlipidemia Hypertension Pancreatitis Presence of IVC filter Pulmonary embolism Seizure disorder Stroke/cerebrovascular accident Substance abuse Home Medications furosemide 40 mg tablet 40 mg PO BID water pill 09/10/16 [History Last Taken 09/09/19] potassium chloride 10 mEq tablet,extended release(part/cryst) 40 meq PO TID supplment 09/10/16 [History Last Taken 09/09/19] valacyclovir 500 mg tablet (Valtrex) 500 mg PO DAILY herpes 10/25/18 [History Last Taken 09/09/19] melatonin 3 mg capsule 10 mg PO QHS sleep 05/26/19 [History Last Taken 09/08/19] magnesium oxide 400 mg PO BID Check with primary doctor 10/09/20 [History Last Taken Unknown] dicyclomine 10 mg capsule 20 mg PO 4X/DAY PRN ABD DISCOMFORT 02/28/21 [History Last Taken Unknown] linaclotide 290 mcg capsule (Linzess) 290 mcg PO DAILY Check with primary doctor 05/28/21 [History Last Taken Unknown] ascorbic acid (vitamin C) 1,000 mg tablet (Vitamin C) 1 g PO DAILY Check with primary doctor 12/03/21 [History Last Taken Unknown] clonazepam 0.5 mg tablet (Klonopin) 0.5 mg PO BID PRN Seizures 12/03/21 [History Last Taken Unknown] clonidine HCl 0.2 mg tablet 0.2 mg PO DAILY PRN Anxiety 12/03/21 [History Last Taken Unknown] hydroxyzine HCl 50 mg tablet 50 mg PO QHS Check with primary doctor 12/03/21 [History Last Taken Unknown] methenamine hippurate 1 gram tablet (Hiprex) 1 g PO QHS Check with primary doctor 12/03/21 [History Last Taken Unknown] metoprolol tartrate 25 mg tablet 25 mg PO BID Check with primary doctor 12/03/21 [History Last Taken Unknown] nitrofurantoin monohydrate/macrocrystals 100 mg capsule (Macrobid) 100 mg PO PRN PRN INTERCOURSE 12/03/21 [History Last Taken Unknown] venlafaxine 150 mg capsule,extended release 24 hr (Effexor XR) 150 mg PO DAILY Check with primary doctor 12/03/21 [History Last Taken Unknown] zonisamide 100 mg capsule (Zonegran) 200 mg PO QHS Check with primary doctor 12/03/21 [History Last Taken Unknown] nirmatrelvir 300 mg (150 mg x2)-ritonavir 100 mg tablet,dose pack(EUA) (Paxlovid) See Rx Instructions PO .COMPLEX #30 tabs 04/22/22 [Rx Last Taken Unknown] aripiprazole 10 mg tablet 10 mg PO DAILY 07/07/22 [History Last Taken Unknown] rivaroxaban 10 mg tablet (Xarelto) 10 mg PO DAILY 07/07/22 [History Last Taken Unknown] Allergy/AdvReac Type Severity Reaction Status Date / Time gabapentin [From Neurontin] Allergy Rash Verified 07/06/22 20:14 morphine Allergy HYPOTENSION Verified 07/06/22 20:14 Penicillins Allergy Rash Verified 07/06/22 20:14 Sulfa (Sulfonamide Allergy Rash Verified 07/06/22 20:14 Antibiotics) Family History Other Hyperlipidemia Surgical History H/O: History of appendectomy History of embolic filter insertion History of hysterectomy Hx of cholecystectomy Social History Smoking Status: Current every day smoker tobacco type: e-cigarettes and smokeless tobacco ROS <Dr. Juan Clinton MD - Last Filed: 07/06/22 23:03> ROS ED ROS Narrative Review of systems is unobtainable as the patient is completely nonverbal. EXAM <Dr. Juan Clinton MD - Last Filed: 07/06/22 23:03> Physical Exam Const Vital Signs: 07/06/22 20:14 07/06/22 20:18 07/06/22 22:51 Temperature 98.6 F Temperature Source Oral Pulse Rate 137 H 128 H 79 Respiratory Rate 18 18 Blood Pressure 149/111 H Blood Pressure Mean 123 Pulse Ox 96 97 Oxygen Delivery Method Room Air Room Air 07/07/22 01:03 07/07/22 03:00 07/07/22 05:00 Temperature Temperature Source Pulse Rate 99 Respiratory Rate 18 17 18 Blood Pressure 138/102 H Blood Pressure Mean 114 Pulse Ox 99 Oxygen Delivery Method Room Air Room Air Room Air 07/07/22 06:08 07/07/22 07:45 07/07/22 11:14 Temperature Temperature Source Pulse Rate 63 124 H Respiratory Rate 17 16 18 Blood Pressure 116/88 H 96/70 Blood Pressure Mean 97 78 Pulse Ox 94 99 Oxygen Delivery Method Room Air Room Air Positive well nourished and well developed Constitutional Narrative: Patient is sitting quietly in bed. She looks at me as I walk in the room. She cooperates and assist with exam. General Appearance ED: well developed; Negative for pallor HEENT Reports moist mucous membranes HEENT Narrative: No sign of trauma. Mucous membranes are minimally dry. Eyes PERRL and EOMs intact bilaterally Eyes Narrative: No photophobia. Initially she does not open her eyes. Then when I asked her she does open her eyes and allow me to look at them. Range of motion is normal. I see no weakness or deficit. General Eye ED: Negative for scleral icterus Neck supple Neck Narrative: No meningismus. No JVD Chest Wall inspection of chest normal Resp normal respiratory effort and clear to auscultation bilaterally Resp Narrative: Breathing is easy unlabored and clear bilaterally. Saturations are 96 to 98% on room air showing no hypoxia Cardio regular rate, regular rhythm and no murmurs Rate: other Other Details: At this time, her heart rate is actually 99. While I am in the room she goes as high as about 117 and as low as about 95. Tones are not muffled. Pulses are normal. ; Negative for tachycardic GI normal to inspection, nondistended, normoactive bowel sounds and non-tender Auscultation: normoactive bowel sounds Back/Spine no CVA tenderness Extremity General Extremety ED: Negative for tenderness Neuro Neuro Narrative: Patient is awake and. I cannot assess orientation. But she does cooperate with exam. She moves all extremities. She actually uses the buttons on the rail easily to set herself upper back. I see no neurologic deficit other than the fact that the patient is not speaking. There is no facial asymmetry. I have her open her mouth and her palate works normally. Her tongue sticks out centrally without going to one side or the other. Psych Psych Narrative: Flat affect. Skin no rashes or lesions noted General Skin Exam: Negative for jaundice or pallor <Dr. Paul Escamilla, DO - Last Filed: 07/07/22 08:24> Physical Exam Const Vital Signs: 07/06/22 20:14 07/06/22 20:18 07/06/22 22:51 Temperature 98.6 F Temperature Source Oral Pulse Rate 137 H 128 H 79 Respiratory Rate 18 18 Blood Pressure 149/111 H Blood Pressure Mean 123 Pulse Ox 96 97 Oxygen Delivery Method Room Air Room Air 07/07/22 01:03 07/07/22 03:00 07/07/22 05:00 Temperature Temperature Source Pulse Rate 99 Respiratory Rate 18 17 18 Blood Pressure 138/102 H Blood Pressure Mean 114 Pulse Ox 99 Oxygen Delivery Method Room Air Room Air Room Air 07/07/22 06:08 07/07/22 07:45 07/07/22 11:14 Temperature Temperature Source Pulse Rate 63 124 H Respiratory Rate 17 16 18 Blood Pressure 116/88 H 96/70 Blood Pressure Mean 97 78 Pulse Ox 94 99 Oxygen Delivery Method Room Air Room Air <Dr. Angel López, DO - Last Filed: 07/07/22 12:09> Physical Exam Const Vital Signs: 07/06/22 20:14 07/06/22 20:18 07/06/22 22:51 Temperature 98.6 F Temperature Source Oral Pulse Rate 137 H 128 H 79 Respiratory Rate 18 18 Blood Pressure 149/111 H Blood Pressure Mean 123 Pulse Ox 96 97 Oxygen Delivery Method Room Air Room Air 07/07/22 01:03 07/07/22 03:00 07/07/22 05:00 Temperature Temperature Source Pulse Rate 99 Respiratory Rate 18 17 18 Blood Pressure 138/102 H Blood Pressure Mean 114 Pulse Ox 99 Oxygen Delivery Method Room Air Room Air Room Air 07/07/22 06:08 07/07/22 07:45 07/07/22 11:14 Temperature Temperature Source Pulse Rate 63 124 H Respiratory Rate 17 16 18 Blood Pressure 116/88 H 96/70 Blood Pressure Mean 97 78 Pulse Ox 94 99 Oxygen Delivery Method Room Air Room Air MDM <Dr. Juan Clinton MD - Last Filed: 07/06/22 23:03> [facility] MDM Narrative Medical decision making narrative: Patient CBC shows elevated white count but this is what she has had in the past. No anemia. Platelets are normal. Some of her blood clot and is being redrawn. By history and exam this is more likely psychiatric illness. Evidently occurred before and she was admitted psychiatrically. She is on but is question if she is taking her psychiatric meds. With her being nonverbal, she really is not able to care for so herself. She is not really doing much activity at all. She does respond and assist with exam but otherwise lays in bed. I think with her illness, on medications, and worsening she would likely need admission. As long as her work-up is not showing any acute medical process I think she would be appropriate for psychiatry. We are pending all of her labs at this time. Lab Data Labs: Laboratory Results - last 24 hr 07/06/22 07/06/22 07/06/22 20:35 20:35 20:35 WBC Cancelled Corrected WBC Cancelled RBC Cancelled Hgb Cancelled Hct Cancelled MCV Cancelled MCH Cancelled MCHC Cancelled RDW Std Deviation Cancelled RDW Coeff of Meagn Cancelled Plt Count Cancelled MPV Cancelled Immature Gran % (Auto) Cancelled Neut % (Auto) Cancelled Lymph % (Auto) Cancelled [place]oshone % (Auto) Cancelled Eos % (Auto) Cancelled Baso % (Auto) Cancelled Absolute Neuts (auto) Cancelled Absolute Lymphs (auto) Cancelled Total Counted Cancelled Neutrophils % (Manual) Cancelled Band Neutrophils % Cancelled Lymphocytes % (Manual) Cancelled Monocytes % (Manual) Cancelled Eosinophils % (Manual) Cancelled Basophils % (Manual) Cancelled Metamyelocytes % Cancelled Myelocytes % Cancelled Promyelocytes % Cancelled Blast Cells % Cancelled Plasma Cell % (Manual) Cancelled Other Cells % Cancelled Nucleated RBC % Cancelled Nucleated RBCs/100 WBC Cancelled Differential Comment Cancelled Diff Path Review Cancelled Hypersegmented Neuts Cancelled Atypical Lymphocytes Cancelled Reactive Lymphocytes Cancelled Smudge Cells Cancelled Toxic Granulation Cancelled Toxic Vacuolation Cancelled Dohle Bodies Cancelled Devan Rods Cancelled Platelet Estimate Cancelled Plt Morphology Comment Cancelled RBC Morphology Cancelled Polychromasia Cancelled Hypochromasia Cancelled Poikilocytosis Cancelled Basophilic Stippling Cancelled Anisocytosis Cancelled Microcytosis Cancelled Macrocytosis Cancelled Spherocytes Cancelled Sickle Cells Cancelled Target Cells Cancelled Tear Drop Cells Cancelled Ovalocytes Cancelled Stomatocytes Cancelled Griffin-Westervelt Bodies Cancelled Yandel Cells Cancelled Bite Cells Cancelled Crenated Cell Cancelled Acanthocytes (Spur) Cancelled Rouleaux Cancelled Schistocytes Cancelled Sodium Cancelled Potassium Cancelled Chloride Cancelled Carbon Dioxide Cancelled Anion Gap Cancelled BUN Cancelled Creatinine Cancelled Estim Creat Clear Calc Cancelled Est GFR (MDRD) Af Amer Cancelled Est GFR (MDRD) Non-Af Cancelled BUN/Creatinine Ratio Cancelled Glucose Cancelled Calcium Cancelled Magnesium Cancelled Total Bilirubin Cancelled AST Cancelled ALT Cancelled Alkaline Phosphatase Cancelled Total Creatine Kinase Total Protein Cancelled Albumin Cancelled Globulin Cancelled Albumin/Globulin Ratio Cancelled Urine Color Urine Clarity Urine pH Ur Specific [place] Urine Protein Urine Glucose (UA) Urine Ketones Urine Occult Blood Urine Nitrite Urine Bilirubin Urine Urobilinogen Ur Leukocyte Esterase Urine RBC Urine WBC Ur Squamous Epith Cells Amorphous Sediment Urine Bacteria Urine Mucus Salicylates 1.8 L Urine Opiates Screen Urine Methadone Screen Acetaminophen < 2.0 L Ur Barbiturates Screen Ur Phencyclidine Scrn Ur Amphetamines Screen MDMA (Ecstasy) Screen U Benzodiazepines Scrn Urine Cocaine Screen U Cannabinoids Screen Ur Drug Screen Comment Ethyl Alcohol < 3.0 07/06/22 07/06/22 07/06/22 22:18 22:18 23:36 WBC 16.9 H Corrected WBC RBC 5.28 Hgb 16.4 H Hct 47.2 H MCV 89.4 MCH 31.1 MCHC 34.7 RDW Std Deviation 38.0 RDW Coeff of Megan 11.8 Plt Count 394 MPV 8.4 Immature Gran % (Auto) 0.400 Neut % (Auto) 70.4 H Lymph % (Auto) 22.1 [place]oshone % (Auto) 6.6 Eos % (Auto) 0.1 Baso % (Auto) 0.4 Absolute Neuts (auto) 11.9 H Absolute Lymphs (auto) 3.74 Total Counted Neutrophils % (Manual) Band Neutrophils % Lymphocytes % (Manual) Monocytes % (Manual) Eosinophils % (Manual) Basophils % (Manual) Metamyelocytes % Myelocytes % Promyelocytes % Blast Cells % Plasma Cell % (Manual) Other Cells % Nucleated RBC % 0 Nucleated RBCs/100 WBC Differential Comment Diff Path Review Hypersegmented Neuts Atypical Lymphocytes Reactive Lymphocytes Smudge Cells Toxic Granulation Toxic Vacuolation Dohle Bodies Devan Rods Platelet Estimate Plt Morphology Comment RBC Morphology Polychromasia Hypochromasia Poikilocytosis Basophilic Stippling Anisocytosis Microcytosis Macrocytosis Spherocytes Sickle Cells Target Cells Tear Drop Cells Ovalocytes Stomatocytes Griffin-Westervelt Bodies Clifford Cells Bite Cells Crenated Cell Acanthocytes (Spur) Rouleaux Schistocytes Sodium Cancelled Potassium Cancelled Chloride Cancelled Carbon Dioxide Cancelled Anion Gap Cancelled BUN Cancelled Creatinine Cancelled Estim Creat Clear Calc Cancelled Est GFR (MDRD) Af Amer Cancelled Est GFR (MDRD) Non-Af Cancelled BUN/Creatinine Ratio Cancelled Glucose Cancelled Calcium Cancelled Magnesium Cancelled Total Bilirubin Cancelled AST Cancelled ALT Cancelled Alkaline Phosphatase Cancelled Total Creatine Kinase Total Protein Cancelled Albumin Cancelled Globulin Cancelled Albumin/Globulin Ratio Cancelled Urine Color Urine Clarity Urine pH Ur Specific [place] Urine Protein Urine Glucose (UA) Urine Ketones Urine Occult Blood Urine Nitrite Urine Bilirubin Urine Urobilinogen Ur Leukocyte Esterase Urine RBC Urine WBC Ur Squamous Epith Cells Amorphous Sediment Urine Bacteria Urine Mucus Salicylates Urine Opiates Screen NEGATIVE Urine Methadone Screen NEGATIVE Acetaminophen Ur Barbiturates Screen POSITIVE H Ur Phencyclidine Scrn NEGATIVE Ur Amphetamines Screen POSITIVE H MDMA (Ecstasy) Screen POSITIVE H U Benzodiazepines Scrn NEGATIVE Urine Cocaine Screen NEGATIVE U Cannabinoids Screen NEGATIVE Ur Drug Screen Comment Ethyl Alcohol 07/06/22 07/07/22 07/07/22 23:36 00:26 11:10 WBC Corrected WBC RBC Hgb Hct MCV MCH MCHC RDW Std Deviation RDW Coeff of Megan Plt Count MPV Immature Gran % (Auto) Neut % (Auto) Lymph % (Auto) [place] % (Auto) Eos % (Auto) Baso % (Auto) Absolute Neuts (auto) Absolute Lymphs (auto) Total Counted Neutrophils % (Manual) Band Neutrophils % Lymphocytes % (Manual) Monocytes % (Manual) Eosinophils % (Manual) Basophils % (Manual) Metamyelocytes % Myelocytes % Promyelocytes % Blast Cells % Plasma Cell % (Manual) Other Cells % Nucleated RBC % Nucleated RBCs/100 WBC Differential Comment Diff Path Review Hypersegmented Neuts Atypical Lymphocytes Reactive Lymphocytes Smudge Cells Toxic Granulation Toxic Vacuolation Dohle Bodies Devan Rods Platelet Estimate Plt Morphology Comment RBC Morphology Polychromasia Hypochromasia Poikilocytosis Basophilic Stippling Anisocytosis Microcytosis Macrocytosis Spherocytes Sickle Cells Target Cells Tear Drop Cells Ovalocytes Stomatocytes Griffin-Westervelt Bodies Clifford Cells Bite Cells Crenated Cell Acanthocytes (Spur) Rouleaux Schistocytes Sodium 138 Potassium 3.3 L Chloride 105 Carbon Dioxide 20.0 L Anion Gap 13 BUN 17 Creatinine 0.78 Estim Creat Clear Calc 73.76 Est GFR (MDRD) Af Amer 102 Est GFR (MDRD) Non-Af 84 BUN/Creatinine Ratio 21.9 H Glucose 124 H Calcium 9.8 Magnesium 2.4 Total Bilirubin 0.50 AST 23 ALT 50 Alkaline Phosphatase 161 H Total Creatine Kinase 93 Total Protein 8.1 Albumin 4.4 Globulin 3.7 Albumin/Globulin Ratio 1.2 Urine Color Yellow Urine Clarity Sl. Cloudy Urine pH 5.0 Ur Specific [place] 1.030 Urine Protein 30 H Urine Glucose (UA) Normal Urine Ketones 150 A* Urine Occult Blood 10 H Urine Nitrite Negative Urine Bilirubin 1 H Urine Urobilinogen 1 H Ur Leukocyte Esterase 25 H Urine RBC 0-5 SEEN Urine WBC 0-5 SEEN Ur Squamous Epith Cells 10-25 SEEN Amorphous Sediment 1+ Urine Bacteria 3+ Urine Mucus 1+ Salicylates Urine Opiates Screen Urine Methadone Screen Acetaminophen Ur Barbiturates Screen Ur Phencyclidine Scrn Ur Amphetamines Screen MDMA (Ecstasy) Screen U Benzodiazepines Scrn Urine Cocaine Screen U Cannabinoids Screen Ur Drug Screen Comment Ethyl Alcohol Radiography Diagnostic Testing: Clinical Impression(s) from Imaging Studies Brain CT 07/06/22 21:32 IMPRESSION: Question old infarct or other nonspecific brain injury in the right parietal lobe.. No acute bleed. If concern for acute infarct MRI recommended Electronically Signed: Mason De La Rosa MD at 21:53 EDT , Patient CT scan showed question of an old infarct. She does have a history of a prior stroke. No acute process. There is no acute finding consistent with a lateralizing deficit. <Dr. Paul Escamilla, DO - Last Filed: 07/07/22 08:24> [facility] Lab Data Attestation: I reviewed the patient's lab results. Labs: Laboratory Results - last 24 hr 07/06/22 07/06/22 07/06/22 20:35 20:35 20:35 WBC Cancelled Corrected WBC Cancelled RBC Cancelled Hgb Cancelled Hct Cancelled MCV Cancelled MCH Cancelled MCHC Cancelled RDW Std Deviation Cancelled RDW Coeff of Megan Cancelled Plt Count Cancelled MPV Cancelled Immature Gran % (Auto) Cancelled Neut % (Auto) Cancelled Lymph % (Auto) Cancelled [place] % (Auto) Cancelled Eos % (Auto) Cancelled Baso % (Auto) Cancelled Absolute Neuts (auto) Cancelled Absolute Lymphs (auto) Cancelled Total Counted Cancelled Neutrophils % (Manual) Cancelled Band Neutrophils % Cancelled Lymphocytes % (Manual) Cancelled Monocytes % (Manual) Cancelled Eosinophils % (Manual) Cancelled Basophils % (Manual) Cancelled Metamyelocytes % Cancelled Myelocytes % Cancelled Promyelocytes % Cancelled Blast Cells % Cancelled Plasma Cell % (Manual) Cancelled Other Cells % Cancelled Nucleated RBC % Cancelled Nucleated RBCs/100 WBC Cancelled Differential Comment Cancelled Diff Path Review Cancelled Hypersegmented Neuts Cancelled Atypical Lymphocytes Cancelled Reactive Lymphocytes Cancelled Smudge Cells Cancelled Toxic Granulation Cancelled Toxic Vacuolation Cancelled Dohle Bodies Cancelled Devan Rods Cancelled Platelet Estimate Cancelled Plt Morphology Comment Cancelled RBC Morphology Cancelled Polychromasia Cancelled Hypochromasia Cancelled Poikilocytosis Cancelled Basophilic Stippling Cancelled Anisocytosis Cancelled Microcytosis Cancelled Macrocytosis Cancelled Spherocytes Cancelled Sickle Cells Cancelled Target Cells Cancelled Tear Drop Cells Cancelled Ovalocytes Cancelled Stomatocytes Cancelled Griffin-Westervelt Bodies Cancelled Yandel Cells Cancelled Bite Cells Cancelled Crenated Cell Cancelled Acanthocytes (Spur) Cancelled Rouleaux Cancelled Schistocytes Cancelled Sodium Cancelled Potassium Cancelled Chloride Cancelled Carbon Dioxide Cancelled Anion Gap Cancelled BUN Cancelled Creatinine Cancelled Estim Creat Clear Calc Cancelled Est GFR (MDRD) Af Amer Cancelled Est GFR (MDRD) Non-Af Cancelled BUN/Creatinine Ratio Cancelled Glucose Cancelled Calcium Cancelled Magnesium Cancelled Total Bilirubin Cancelled AST Cancelled ALT Cancelled Alkaline Phosphatase Cancelled Total Creatine Kinase Total Protein Cancelled Albumin Cancelled Globulin Cancelled Albumin/Globulin Ratio Cancelled Urine Color Urine Clarity Urine pH Ur Specific [place] Urine Protein Urine Glucose (UA) Urine Ketones Urine Occult Blood Urine Nitrite Urine Bilirubin Urine Urobilinogen Ur Leukocyte Esterase Urine RBC Urine WBC Ur Squamous Epith Cells Amorphous Sediment Urine Bacteria Urine Mucus Salicylates 1.8 L Urine Opiates Screen Urine Methadone Screen Acetaminophen < 2.0 L Ur Barbiturates Screen Ur Phencyclidine Scrn Ur Amphetamines Screen MDMA (Ecstasy) Screen U Benzodiazepines Scrn Urine Cocaine Screen U Cannabinoids Screen Ur Drug Screen Comment Ethyl Alcohol < 3.0 07/06/22 07/06/22 07/06/22 22:18 22:18 23:36 WBC 16.9 H Corrected WBC RBC 5.28 Hgb 16.4 H Hct 47.2 H MCV 89.4 MCH 31.1 MCHC 34.7 RDW Std Deviation 38.0 RDW Coeff of Megan 11.8 Plt Count 394 MPV 8.4 Immature Gran % (Auto) 0.400 Neut % (Auto) 70.4 H Lymph % (Auto) 22.1 [place] % (Auto) 6.6 Eos % (Auto) 0.1 Baso % (Auto) 0.4 Absolute Neuts (auto) 11.9 H Absolute Lymphs (auto) 3.74 Total Counted Neutrophils % (Manual) Band Neutrophils % Lymphocytes % (Manual) Monocytes % (Manual) Eosinophils % (Manual) Basophils % (Manual) Metamyelocytes % Myelocytes % Promyelocytes % Blast Cells % Plasma Cell % (Manual) Other Cells % Nucleated RBC % 0 Nucleated RBCs/100 WBC Differential Comment Diff Path Review Hypersegmented Neuts Atypical Lymphocytes Reactive Lymphocytes Smudge Cells Toxic Granulation Toxic Vacuolation Dohle Bodies Devan Rods Platelet Estimate Plt Morphology Comment RBC Morphology Polychromasia Hypochromasia Poikilocytosis Basophilic Stippling Anisocytosis Microcytosis Macrocytosis Spherocytes Sickle Cells Target Cells Tear Drop Cells Ovalocytes Stomatocytes Griffin-Westervelt Bodies Clifford Cells Bite Cells Crenated Cell Acanthocytes (Spur) Rouleaux Schistocytes Sodium Cancelled Potassium Cancelled Chloride Cancelled Carbon Dioxide Cancelled Anion Gap Cancelled BUN Cancelled Creatinine Cancelled Estim Creat Clear Calc Cancelled Est GFR (MDRD) Af Amer Cancelled Est GFR (MDRD) Non-Af Cancelled BUN/Creatinine Ratio Cancelled Glucose Cancelled Calcium Cancelled Magnesium Cancelled Total Bilirubin Cancelled AST Cancelled ALT Cancelled Alkaline Phosphatase Cancelled Total Creatine Kinase Total Protein Cancelled Albumin Cancelled Globulin Cancelled Albumin/Globulin Ratio Cancelled Urine Color Urine Clarity Urine pH Ur Specific [place] Urine Protein Urine Glucose (UA) Urine Ketones Urine Occult Blood Urine Nitrite Urine Bilirubin Urine Urobilinogen Ur Leukocyte Esterase Urine RBC Urine WBC Ur Squamous Epith Cells Amorphous Sediment Urine Bacteria Urine Mucus Salicylates Urine Opiates Screen NEGATIVE Urine Methadone Screen NEGATIVE Acetaminophen Ur Barbiturates Screen POSITIVE H Ur Phencyclidine Scrn NEGATIVE Ur Amphetamines Screen POSITIVE H MDMA (Ecstasy) Screen POSITIVE H U Benzodiazepines Scrn NEGATIVE Urine Cocaine Screen NEGATIVE U Cannabinoids Screen NEGATIVE Ur Drug Screen Comment Ethyl Alcohol 07/06/22 07/07/22 07/07/22 23:36 00:26 11:10 WBC Corrected WBC RBC Hgb Hct MCV MCH MCHC RDW Std Deviation RDW Coeff of Megan Plt Count MPV Immature Gran % (Auto) Neut % (Auto) Lymph % (Auto) [place] % (Auto) Eos % (Auto) Baso % (Auto) Absolute Neuts (auto) Absolute Lymphs (auto) Total Counted Neutrophils % (Manual) Band Neutrophils % Lymphocytes % (Manual) Monocytes % (Manual) Eosinophils % (Manual) Basophils % (Manual) Metamyelocytes % Myelocytes % Promyelocytes % Blast Cells % Plasma Cell % (Manual) Other Cells % Nucleated RBC % Nucleated RBCs/100 WBC Differential Comment Diff Path Review Hypersegmented Neuts Atypical Lymphocytes Reactive Lymphocytes Smudge Cells Toxic Granulation Toxic Vacuolation Dohle Bodies Devan Rods Platelet Estimate Plt Morphology Comment RBC Morphology Polychromasia Hypochromasia Poikilocytosis Basophilic Stippling Anisocytosis Microcytosis Macrocytosis Spherocytes Sickle Cells Target Cells Tear Drop Cells Ovalocytes Stomatocytes Griffin-Westervelt Bodies Clifford Cells Bite Cells Crenated Cell Acanthocytes (Spur) Rouleaux Schistocytes Sodium 138 Potassium 3.3 L Chloride 105 Carbon Dioxide 20.0 L Anion Gap 13 BUN 17 Creatinine 0.78 Estim Creat Clear Calc 73.76 Est GFR (MDRD) Af Amer 102 Est GFR (MDRD) Non-Af 84 BUN/Creatinine Ratio 21.9 H Glucose 124 H Calcium 9.8 Magnesium 2.4 Total Bilirubin 0.50 AST 23 ALT 50 Alkaline Phosphatase 161 H Total Creatine Kinase 93 Total Protein 8.1 Albumin 4.4 Globulin 3.7 Albumin/Globulin Ratio 1.2 Urine Color Yellow Urine Clarity Sl. Cloudy Urine pH 5.0 Ur Specific Bedrock 1.030 Urine Protein 30 H Urine Glucose (UA) Normal Urine Ketones 150 A* Urine Occult Blood 10 H Urine Nitrite Negative Urine Bilirubin 1 H Urine Urobilinogen 1 H Ur Leukocyte Esterase 25 H Urine RBC 0-5 SEEN Urine WBC 0-5 SEEN Ur Squamous Epith Cells 10-25 SEEN Amorphous Sediment 1+ Urine Bacteria 3+ Urine Mucus 1+ Salicylates Urine Opiates Screen Urine Methadone Screen Acetaminophen Ur Barbiturates Screen Ur Phencyclidine Scrn Ur Amphetamines Screen MDMA (Ecstasy) Screen U Benzodiazepines Scrn Urine Cocaine Screen U Cannabinoids Screen Ur Drug Screen Comment Ethyl Alcohol Radiography Diagnostic Testing: Clinical Impression(s) from Imaging Studies Brain CT 07/06/22 21:32 IMPRESSION: Question old infarct or other nonspecific brain injury in the right parietal lobe.. No acute bleed. If concern for acute infarct MRI recommended Electronically Signed: Mason De La Rosa MD at 21:53 EDT , Treatment and Re-Evaluation Narrative: Patient was signed out to me while awaiting evaluation by psychiatry/crisis center. Her CT showed changes consistent with her previous stroke but there is no new findings. Her white count is elevated but chart review reveals that this is chronic for her. Her urine does show bacteria but is contaminated with multiple epithelial cells and she has no urinary symptoms so therefore this is not truly infected but contaminated. Crisis center evaluated the patient in the ER and they agree that based on her psychosis she will need placed in a psychiatric hospital. The patient is medically cleared from emergency medicine standpoint for transfer/placement in a psychiatric hospital. <Dr. Angel López, DO - Last Filed: 07/07/22 12:09> [facility] Narrative Medical decision making narrative: Patient CBC shows elevated white count but this is what she has had in the past. No anemia. Platelets are normal. Some of her blood clot and is being redrawn. By history and exam this is more likely psychiatric illness. Evidently occurred before and she was admitted psychiatrically. She is on but is question if she is taking her psychiatric meds. With her being nonverbal, she really is not able to care for so herself. She is not really doing much activity at all. She does respond and assist with exam but otherwise lays in bed. I think with her illness, on medications, and worsening she would likely need admission. As long as her work-up is not showing any acute medical process I think she would be appropriate for psychiatry. We are pending all of her labs at this time. Urine is contaminated. She does have a slight leukocytosis but no evidence of infection. The patient is medically cleared for psychiatric assessment. Lab Data Attestation: I reviewed the patient's lab results. Labs: Laboratory Results - last 24 hr 07/06/22 07/06/22 07/06/22 20:35 20:35 20:35 WBC Cancelled Corrected WBC Cancelled RBC Cancelled Hgb Cancelled Hct Cancelled MCV Cancelled MCH Cancelled MCHC Cancelled RDW Std Deviation Cancelled RDW Coeff of Megan Cancelled Plt Count Cancelled MPV Cancelled Immature Gran % (Auto) Cancelled Neut % (Auto) Cancelled Lymph % (Auto) Cancelled Shoshone % (Auto) Cancelled Eos % (Auto) Cancelled Baso % (Auto) Cancelled Absolute Neuts (auto) Cancelled Absolute Lymphs (auto) Cancelled Total Counted Cancelled Neutrophils % (Manual) Cancelled Band Neutrophils % Cancelled Lymphocytes % (Manual) Cancelled Monocytes % (Manual) Cancelled Eosinophils % (Manual) Cancelled Basophils % (Manual) Cancelled Metamyelocytes % Cancelled Myelocytes % Cancelled Promyelocytes % Cancelled Blast Cells % Cancelled Plasma Cell % (Manual) Cancelled Other Cells % Cancelled Nucleated RBC % Cancelled Nucleated RBCs/100 WBC Cancelled Differential Comment Cancelled Diff Path Review Cancelled Hypersegmented Neuts Cancelled Atypical Lymphocytes Cancelled Reactive Lymphocytes Cancelled Smudge Cells Cancelled Toxic Granulation Cancelled Toxic Vacuolation Cancelled Dohle Bodies Cancelled Devan Rods Cancelled Platelet Estimate Cancelled Plt Morphology Comment Cancelled RBC Morphology Cancelled Polychromasia Cancelled Hypochromasia Cancelled Poikilocytosis Cancelled Basophilic Stippling Cancelled Anisocytosis Cancelled Microcytosis Cancelled Macrocytosis Cancelled Spherocytes Cancelled Sickle Cells Cancelled Target Cells Cancelled Tear Drop Cells Cancelled Ovalocytes Cancelled Stomatocytes Cancelled Griffin-Westervelt Bodies Cancelled Clifford Cells Cancelled Bite Cells Cancelled Crenated Cell Cancelled Acanthocytes (Spur) Cancelled Rouleaux Cancelled Schistocytes Cancelled Sodium Cancelled Potassium Cancelled Chloride Cancelled Carbon Dioxide Cancelled Anion Gap Cancelled BUN Cancelled Creatinine Cancelled Estim Creat Clear Calc Cancelled Est GFR (MDRD) Af Amer Cancelled Est GFR (MDRD) Non-Af Cancelled BUN/Creatinine Ratio Cancelled Glucose Cancelled Calcium Cancelled Magnesium Cancelled Total Bilirubin Cancelled AST Cancelled ALT Cancelled Alkaline Phosphatase Cancelled Total Creatine Kinase Total Protein Cancelled Albumin Cancelled Globulin Cancelled Albumin/Globulin Ratio Cancelled Urine Color Urine Clarity Urine pH Ur Specific [place] Urine Protein Urine Glucose (UA) Urine Ketones Urine Occult Blood Urine Nitrite Urine Bilirubin Urine Urobilinogen Ur Leukocyte Esterase Urine RBC Urine WBC Ur Squamous Epith Cells Amorphous Sediment Urine Bacteria Urine Mucus Salicylates 1.8 L Urine Opiates Screen Urine Methadone Screen Acetaminophen < 2.0 L Ur Barbiturates Screen Ur Phencyclidine Scrn Ur Amphetamines Screen MDMA (Ecstasy) Screen U Benzodiazepines Scrn Urine Cocaine Screen U Cannabinoids Screen Ur Drug Screen Comment Ethyl Alcohol < 3.0 07/06/22 07/06/22 07/06/22 22:18 22:18 23:36 WBC 16.9 H Corrected WBC RBC 5.28 Hgb 16.4 H Hct 47.2 H MCV 89.4 MCH 31.1 MCHC 34.7 RDW Std Deviation 38.0 RDW Coeff of Megan 11.8 Plt Count 394 MPV 8.4 Immature Gran % (Auto) 0.400 Neut % (Auto) 70.4 H Lymph % (Auto) 22.1 Shoshone % (Auto) 6.6 Eos % (Auto) 0.1 Baso % (Auto) 0.4 Absolute Neuts (auto) 11.9 H Absolute Lymphs (auto) 3.74 Total Counted Neutrophils % (Manual) Band Neutrophils % Lymphocytes % (Manual) Monocytes % (Manual) Eosinophils % (Manual) Basophils % (Manual) Metamyelocytes % Myelocytes % Promyelocytes % Blast Cells % Plasma Cell % (Manual) Other Cells % Nucleated RBC % 0 Nucleated RBCs/100 WBC Differential Comment Diff Path Review Hypersegmented Neuts Atypical Lymphocytes Reactive Lymphocytes Smudge Cells Toxic Granulation Toxic Vacuolation Dohle Bodies Devan Rods Platelet Estimate Plt Morphology Comment RBC Morphology Polychromasia Hypochromasia Poikilocytosis Basophilic Stippling Anisocytosis Microcytosis Macrocytosis Spherocytes Sickle Cells Target Cells Tear Drop Cells Ovalocytes Stomatocytes Griffin-Westervelt Bodies Yandel Cells Bite Cells Crenated Cell Acanthocytes (Spur) Rouleaux Schistocytes Sodium Cancelled Potassium Cancelled Chloride Cancelled Carbon Dioxide Cancelled Anion Gap Cancelled BUN Cancelled Creatinine Cancelled Estim Creat Clear Calc Cancelled Est GFR (MDRD) Af Amer Cancelled Est GFR (MDRD) Non-Af Cancelled BUN/Creatinine Ratio Cancelled Glucose Cancelled Calcium Cancelled Magnesium Cancelled Total Bilirubin Cancelled AST Cancelled ALT Cancelled Alkaline Phosphatase Cancelled Total Creatine Kinase Total Protein Cancelled Albumin Cancelled Globulin Cancelled Albumin/Globulin Ratio Cancelled Urine Color Urine Clarity Urine pH Ur Specific [place] Urine Protein Urine Glucose (UA) Urine Ketones Urine Occult Blood Urine Nitrite Urine Bilirubin Urine Urobilinogen Ur Leukocyte Esterase Urine RBC Urine WBC Ur Squamous Epith Cells Amorphous Sediment Urine Bacteria Urine Mucus Salicylates Urine Opiates Screen NEGATIVE Urine Methadone Screen NEGATIVE Acetaminophen Ur Barbiturates Screen POSITIVE H Ur Phencyclidine Scrn NEGATIVE Ur Amphetamines Screen POSITIVE H MDMA (Ecstasy) Screen POSITIVE H U Benzodiazepines Scrn NEGATIVE Urine Cocaine Screen NEGATIVE U Cannabinoids Screen NEGATIVE Ur Drug Screen Comment Ethyl Alcohol 07/06/22 07/07/22 07/07/22 23:36 00:26 11:10 WBC Corrected WBC RBC Hgb Hct MCV MCH MCHC RDW Std Deviation RDW Coeff of Megan Plt Count MPV Immature Gran % (Auto) Neut % (Auto) Lymph % (Auto) Shoshone % (Auto) Eos % (Auto) Baso % (Auto) Absolute Neuts (auto) Absolute Lymphs (auto) Total Counted Neutrophils % (Manual) Band Neutrophils % Lymphocytes % (Manual) Monocytes % (Manual) Eosinophils % (Manual) Basophils % (Manual) Metamyelocytes % Myelocytes % Promyelocytes % Blast Cells % Plasma Cell % (Manual) Other Cells % Nucleated RBC % Nucleated RBCs/100 WBC Differential Comment Diff Path Review Hypersegmented Neuts Atypical Lymphocytes Reactive Lymphocytes Smudge Cells Toxic Granulation Toxic Vacuolation Dohle Bodies Devan Rods Platelet Estimate Plt Morphology Comment RBC Morphology Polychromasia Hypochromasia Poikilocytosis Basophilic Stippling Anisocytosis Microcytosis Macrocytosis Spherocytes Sickle Cells Target Cells Tear Drop Cells Ovalocytes Stomatocytes Griffin-Westervelt Bodies Clifford Cells Bite Cells Crenated Cell Acanthocytes (Spur) Rouleaux Schistocytes Sodium 138 Potassium 3.3 L Chloride 105 Carbon Dioxide 20.0 L Anion Gap 13 BUN 17 Creatinine 0.78 Estim Creat Clear Calc 73.76 Est GFR (MDRD) Af Amer 102 Est GFR (MDRD) Non-Af 84 BUN/Creatinine Ratio 21.9 H Glucose 124 H Calcium 9.8 Magnesium 2.4 Total Bilirubin 0.50 AST 23 ALT 50 Alkaline Phosphatase 161 H Total Creatine Kinase 93 Total Protein 8.1 Albumin 4.4 Globulin 3.7 Albumin/Globulin Ratio 1.2 Urine Color Yellow Urine Clarity Sl. Cloudy Urine pH 5.0 Ur Specific [place] 1.030 Urine Protein 30 H Urine Glucose (UA) Normal Urine Ketones 150 A* Urine Occult Blood 10 H Urine Nitrite Negative Urine Bilirubin 1 H Urine Urobilinogen 1 H Ur Leukocyte Esterase 25 H Urine RBC 0-5 SEEN Urine WBC 0-5 SEEN Ur Squamous Epith Cells 10-25 SEEN Amorphous Sediment 1+ Urine Bacteria 3+ Urine Mucus 1+ Salicylates Urine Opiates Screen Urine Methadone Screen Acetaminophen Ur Barbiturates Screen Ur Phencyclidine Scrn Ur Amphetamines Screen MDMA (Ecstasy) Screen U Benzodiazepines Scrn Urine Cocaine Screen U Cannabinoids Screen Ur Drug Screen Comment Ethyl Alcohol Radiography Diagnostic Testing: Clinical Impression(s) from Imaging Studies Brain CT 07/06/22 21:32 IMPRESSION: Question old infarct or other nonspecific brain injury in the right parietal lobe.. No acute bleed. If concern for acute infarct MRI recommended Electronically Signed: Mason De La Rosa MD at 21:53 EDT , Discharge Plan Triage Chief Complaint: Mental Status Change ED Provider: Juan Clinton Dx/Rx/DC Orders Clinical Impression: Nonverbal, History of bipolar disorder Prescriptions: No Action furosemide 40 MG tablet 40 mg PO BID potassium chloride 10 MEQ tablet 40 meq PO TID valacyclovir [Valtrex] 500 MG tablet 500 mg PO DAILY melatonin 3 MG capsule 10 mg PO QHS magnesium oxide 200 MG tablet 400 mg PO BID dicyclomine 10 MG capsule 20 mg PO 4X/DAY PRN (Reason: ABD DISCOMFORT) Linzess 290 mcg capsule 290 mcg PO DAILY Label Comments: take 1 capsule by mouth once daily zonisamide [Zonegran] 100 mg Capsule 200 mg PO QHS clonidine HCl 0.2 mg Tablet 0.2 mg PO DAILY PRN (Reason: Anxiety) methenamine hippurate [Hiprex] 1 gram Tablet 1 g PO QHS ascorbic acid (vitamin C) [Vitamin C] 1,000 mg Tablet 1 g PO DAILY clonazepam [Klonopin] 0.5 mg Tablet 0.5 mg PO BID PRN (Reason: Seizures) venlafaxine [Effexor XR] 150 mg Capsule,Extended Release 24hr 150 mg PO DAILY hydroxyzine HCl 50 mg Tablet 50 mg PO QHS metoprolol tartrate 25 mg Tablet 25 mg PO BID nitrofurantoin monohyd/m-cryst [Macrobid] 100 mg Capsule 100 mg PO PRN PRN (Reason: INTERCOURSE) Paxlovid (EUA) 300 mg (150 mg x 2)-100 mg tablets,dose pack See Rx Instructions .ROUTE .COMPLEX Qty: 30 0RF Rx Instructions: take TWO 150 mg tablets of nirmatrelvir with ONE 100 mg tablet of ritonavir twice daily for 5 days aripiprazole 10 mg tablet 10 mg PO DAILY Xarelto 10 mg tablet 10 mg PO DAILY Primary Care Provider: Rin Rivera NP Referrals: Lorson,Rin HOUSEKEEPING ASSISTANT, HOUSEKEEPING ASSISTANT-C [Primary Care Provider] - Disposition Disposition: Psychiatric Hospital or Unit
--- NOTE | 2022-07-06 21:32 | CT_ITS ---
STUDY: CT BRAIN WITHOUT CONTRAST REASON FOR EXAM: Female, 46 years old. non verbal RADIATION DOSAGE (If Supplied By Facility): CTDIvol = ( 44.99 ) mGy, DLP = ( 812.98 ) mGycm TECHNIQUE: Transaxial CT imaging of the brain was performed without administration of intravenous contrast material. Individualized dose optimization techniques were used for this CT. COMPARISON: 10/07/2019. FINDINGS: Normal soft tissue structures. Normal calvarium. Focal encephalomalacia in the right parietal lobe possibly on the basis of prior infarct or other nonspecific brain injury. Normal white matter tracts of the cerebral hemispheres. Normal basal ganglia and thalami. Normal brainstem. Normal cerebellum. There is no intracranial hemorrhage. There are no findings of an acute ischemic infarction. Normal visualized paranasal sinuses. No significant change since prior exam CT/Brain/Head without Contrast IMPRESSION: Question old infarct or other nonspecific brain injury in the right parietal lobe.. No acute bleed. If concern for acute infarct MRI recommended Electronically Signed: Mason De La Rosa MD at 21:53 EDT ,
[2022-07-06 22:26] LABS: Absolute Lymphocyte Count 3.74 X10^3/uL (0.83-4.51); Absolute Neutrophil Count 11.9 X10^3/uL (2.0-7.7); Basophil# 0.06 X10^3/uL; Basophil% 0.4 % (0-1); Eosinophil# 0.02 X10^3/uL; Eosinophils% 0.1 % (0-5); Hematocrit 47.2 % (37-47); Hemoglobin 16.4 g/dL (12.0-15.0); Lymphocyte # 3.74 X10^3/ul (0.83-4.51); Lymphocyte % 22.1 % (19-41); Mean Corp Hgb Conc 34.7 g/dL (32-36); Mean Corpuscular Hgb 31.1 pg (27.0-32.0); Mean Corpuscular Volume 89.4 fL (81-99); Mean Platelet Vol. 8.4 fl (6.2-12.0); Monocyte# 1.11 X10^3/uL; Monocyte% 6.6 % (0-10); NRBC Flagged by Analyzer 0 % (0-5); Neutrophil % 70.4 % (47-70); Platelet Count 394 K/mm3 (150-450); RBC Distribution Width CV 11.8 % (11.6-14.6); Red Blood Count 5.28 M/mm3 (4.2-5.4); White Blood Count 16.9 K/mm3 (4.4-11.0)
--- NOTE | 2022-07-06 22:49 | NURSING ---
ambulated pt to restroom. pt grabbing on everything within reach. turned on water in rest room took 3 tries to get pt to sit on toilet without pants on. unabel to obtain urine sample. pt resting in bed family in room
[2022-07-06 22:51] VITALS: PULSE 79; RESP 18; O2SAT 97
[2022-07-06 23:15] LABS: Acetaminophen (Tylenol) Level < 2.0 ug/mL (10.0-30.0); Alcohol, Blood (Medical)-Serum < 3.0 mg/dL; Salicylate 1.8 mg/dL (2.8-20.0)
[2022-07-06 23:43] LABS: Color, Urine Yellow (Yellow); Glucose, Dipstick Normal (Normal); Leukocyte Esterase-Dipstick 25 /ul (Negative); Nitrite-Dipstick Negative (Negative); Occult Blood-Urine 10 /ul (Negative); Protein-Dipstick 30 mg/dl (Negative); Urine Clarity Sl. Cloudy (Clear); Urine Urobilinogen 1 mg/dl (Normal)
[2022-07-06 23:56] LABS: Amphetamine Urine VISTA POSITIVE (<1000 ng/mL); Barbiturate Urine VISTA POSITIVE (< 200 ng/mL); Benzodiazepine Urine VISTA NEGATIVE (< 200 ng/mL); Cocaine Urine VISTA NEGATIVE (< 300 ng/mL); Ecstacy Urine VISTA POSITIVE (< 500 ng/mL); Methadone Urine VISTA NEGATIVE (< 300 ng/mL); PCP Urine VISTA NEGATIVE (< 25 ng/mL); THC Urine VISTA NEGATIVE (< 50 ng/mL); Vista UDS pH Range 5
[2022-07-07] VITALS (7 sets, daily range): BP systolic 96–138; BP diastolic 70–102; PULSE 63–124; RESP 16–18; O2SAT 94–100
[2022-07-07 00:31] LABS: Urine Bilirubin Dipstick 1 mg/dL (Negative)
[2022-07-07 00:33] LABS: Ketone-Dipstick 150 mg/dl (Negative)
[2022-07-07 00:49] LABS: ALB/GLOB Ratio 1.2 RATIO (0.9-2.4); AST(SGOT) 23 U/L (15-37); Alanine Aminotransfer ALT/SGPT 50 U/L (13-56); Albumin, Serum 4.4 g/dL (3.2-5.0); Alkaline Phosphatase 161 U/L (45-117); Anion Gap 13 (5-15); BUN 17 mg/dL (7-18); BUN/Creat Ratio 21.9 RATIO (10-20); Calcium,Total 9.8 mg/dL (8.5-10.1); Chloride 105 mmol/L (98-107); Creatinine, Serum 0.78 mg/dL (0.55-1.02); EST Glomerular Filtration Rate 84 mL/min (>60); Est Glom Filt Rate - Afr Amer 102 mL/min (>60); Estimated Creatinine Clearance 73.76 ml/min; Globulin 3.7 g/dL (2.2-4.2); Glucose 124 mg/dL (74-106); Magnesium 2.4 mg/dL (1.6-2.6); Potassium 3.3 mmol/L (3.5-5.1); Protein, Total 8.1 g/dL (6.4-8.2); Sodium Level 138 mmol/L (136-145)
[2022-07-07 00:50] LABS: Bacteria 3+ /hpf (None Seen); Mucous, Urine 1+ /hpf (<or=2+); Red Blood Cells-Urine 0-5 SEEN /hpf (0-5); Squamous Epithelial Cells - UA 10-25 SEEN /hpf (5-10); White Blood Cells 0-5 SEEN /hpf (0-5)
[2022-07-07 00:51] LABS: Amorphous Sediment 1+
--- NOTE | 2022-07-07 07:34 | NURSING ---
[facility] CALLED. PATIENT DECLINED BY [facility]
--- NOTE | 2022-07-07 09:15 | ED.RN ---
ATTEMPTED TO GIVE PATIENT MORNING MEDICATIONS. PATIENT DUMPED ALL MEDICATIONS ON THE FLOOR. MD NOTIFIED.
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
[2022-07-07] MEDS: Ziprasidone IM 20 MG/ML VIAL IM (10:15)
--- NOTE | 2022-07-07 10:50 | CM.ED ---
Social Work Telephone call from Shazia maurice. Shazia reports that patient has been declined [place]. Patient continues to be pending [place] [facility] and is now pending [facility]. Shazia reports that [facility] is requesting for EKG, COVID test results, COVID screening tool (from [facility]), and a total CK to be sent to be able to facilitate further clinical evaluation. [facility] fax number is [phone]. This social science teacher to fax clinical information when obtained. This social science teacher updated medical team on above request. Total CK to be completed. COVID test and EKG already completed. [facility] faxed this social science teacher the COVID screening tool. Social Work to continue to follow. Tasha Guo MSW, JEREMY
[2022-07-07 11:35] LABS: CPK Total, Creatine Kinase 93 U/L (26-192)
--- NOTE | 2022-07-07 11:41 | CM.ED ---
Social Work Requested clinical information obtained and faxed to [facility]. Will continue to follow. Tasha HARRISON, JEREMY
--- NOTE | 2022-07-07 12:10 | CM.ED ---
Social Work Telephone call from Lexi maurice. Lexi updated this social worker palliative care that patient is accepted to [facility]. Lexi reports that medical office asst at [facility] is requesting for formal statement of medical clearance and then will provide admitting information. This social worker palliative care faxed note of medical clearance and pink slip to [facility]. Medical team updated. Will continue to follow. Tasha HARRISON, JEREMY
--- NOTE | 2022-07-07 12:49 | NURSING ---
CALLED [facility], ETA IS 30 MIN
--- NOTE | 2022-07-07 12:53 | CM.ED ---
Social Work Telephone call from Lexi Burgos. Lexi updated this social services specialist that patient is being accepted by Dr. Manrique to room 107A at [facility]. Nurse to call report to [phone]. This social services specialist updated medical team. Patient has been restless and is now sleeping. This social services specialist to allow patient to continue to sleep. Patient aware of transfer/plan prior to falling asleep. Will continue to follow as needed. PLAN: [facility]. Tasha HARRISON, JEREMY
== END 2022-07-07 13:31 ==
PROVIDERS: Emergency Medicine; Emergency Provider Emergency Medicine; PCP Nurse Practitioner Family; Visit Provider Emergency Medicine
DX: F31.9 Bipolar disorder, unspecified (principal); I10 Essential (primary) hypertension; F17.220 Nicotine dependence, chewing tobacco, uncomplicated; E78.5 Hyperlipidemia, unspecified; Z86.73 Personal history of transient ischemic attack (TIA), and cerebral infarction without residual deficits; Z79.899 Other long term (current) drug therapy; Z86.718 Personal history of other venous thrombosis and embolism; Z86.711 Personal history of pulmonary embolism
CPT/HCPCS: 70450; 80053; 80307; 80329; 81001; 82077; 82550; 83735; 85025; 87428; 93005; 96372; 99285; P9612; A4216; G0480; J3486

== ENCOUNTER 2022-07-29 05:44 | Emergency (ER) | payer MEDICARE, SELFPAY ==
[2022-07-29 05:45] VITALS: BP 136/73; PULSE 69; RESP 18; TEMP 36.8; O2SAT 95; BMI 39.5
--- NOTE | 2022-07-29 06:34 | CT_ITS ---
We are attempting to reach an attending provider to discuss findings. An addendum with communication details will be sent when the communication is complete. EXAM: CT HEAD WITHOUT INTRAVENOUS CONTRAST CLINICAL INDICATION: Neuro deficit, acute, stroke suspected TECHNIQUE: Multiple axial images were obtained of the head without intravenous contrast. This CT exam was performed using one or more of the following dose reduction techniques: automated exposure control, adjustment of the mA and/or kV according to patient size, and/or use of iterative reconstruction technique. This report was created using [employer] report [employer] technology. COMPARISON: 07/06/2022. FINDINGS: BRAIN AND EXTRA-AXIAL SPACES: Small old area of encephalomalacia right parietal lobe unchanged. No intra- or extra-axial hemorrhage. No evidence of acute infarct. No intracranial mass or mass effect. There is preservation of the leos/white matter interface. Posterior fossa structures are unremarkable. Ventricles are appropriate for age. No hydrocephalus. Basal cisterns are patent. BONES/JOINTS: Unremarkable. No discrete lytic or blastic abnormalities. SINUSES: Unremarkable as visualized. Clear. MASTOID AIR CELLS: Unremarkable. Clear. ORBITS: Visualized globes, extraocular muscles, optic nerves and retrobulbar fat appear unremarkable. CT/STROKE Brain/Head without Cont IMPRESSION: Small old area of encephalomalacia right parietal lobe unchanged. No acute intracranial abnormality. ASSESSMENT: ASPECTS ([place] Stroke Program Early CT Score) is 10. Electronically Signed: Nilesh Christine MD at 7:04 EST ,
--- NOTE | 2022-07-29 06:34 | EKG12_ITS ---
Test Reason : headache Blood Pressure : / mmHG Vent. Rate : 072 BPM Atrial Rate : 072 BPM P-R Int : 180 ms QRS Dur : 082 ms QT Int : 406 ms P-R-T Axes : 038 -24 017 degrees QTc Int : 444 ms Normal sinus rhythm q waves-III & avF likely related to body habitus Abnormal ECG Confirmed by MICHAEL VASQUEZ, HUAN ([id number]), script editor DOROTHEA RUSSELL ([id number]) on 08/03/2022 9:35:17 A M Referred By: Confirmed By:SHERRI RODRIGUEZ MD
--- NOTE | 2022-07-29 06:35 | EDS_ITS ---
HPI History of Present Illness Chief Complaint: Headache Narrative Narrative: 46-year-old female presenting with headache. She states is on the right side of her head. She has some mild blurring of her vision she states. The onset of this was 6 PM yesterday. She states she has been slurring her words since that time. She states she went to sleep after supper at about 10 PM. She woke up this morning with continued headache and she states that when she woke up her left arm felt kind of floppy. She states that she has tingling in the left arm but not on the left leg. She states he called the on-call physician who stated she sound like she was slurring. The patient does not believe she is slurring anymore but did believe she was slurring earlier. She denies any head injury. She states she has a history of stroke and intracranial bleed. She states he was seen at [facility] for this years ago. Patient is on Xarelto 10 mg p.o. daily. [facility] Medical History Anxiety Depression Depression DVT (deep venous thrombosis) Epilepsy Factor V Leiden mutation Former smoker GERD (gastroesophageal reflux disease) History of CVA (cerebrovascular accident) History of pancreatitis History of pulmonary embolus (PE) Hyperlipidemia Hypertension Pancreatitis Presence of IVC filter Pulmonary embolism Seizure disorder Stroke/cerebrovascular accident Substance abuse Home Medications furosemide 40 mg tablet 40 mg PO BID water pill 09/10/16 [History Last Taken 09/09/19] potassium chloride 10 mEq tablet,extended release(part/cryst) 40 meq PO TID supplment 09/10/16 [History Last Taken 09/09/19] valacyclovir 500 mg tablet (Valtrex) 500 mg PO DAILY herpes 10/25/18 [History Last Taken 09/09/19] melatonin 3 mg capsule 10 mg PO QHS sleep 05/26/19 [History Last Taken 09/08/19] magnesium oxide 400 mg PO BID Check with primary doctor 10/09/20 [History Last Taken Unknown] dicyclomine 10 mg capsule 20 mg PO 4X/DAY PRN ABD DISCOMFORT 02/28/21 [History Last Taken Unknown] linaclotide 290 mcg capsule (Linzess) 290 mcg PO DAILY Check with primary doctor 05/28/21 [History Last Taken Unknown] ascorbic acid (vitamin C) 1,000 mg tablet (Vitamin C) 1 g PO DAILY Check with primary doctor 12/03/21 [History Last Taken Unknown] clonazepam 0.5 mg tablet (Klonopin) 0.5 mg PO BID PRN Seizures 12/03/21 [History Last Taken Unknown] clonidine HCl 0.2 mg tablet 0.2 mg PO DAILY PRN Anxiety 12/03/21 [History Last Taken Unknown] hydroxyzine HCl 50 mg tablet 50 mg PO QHS Check with primary doctor 12/03/21 [History Last Taken Unknown] methenamine hippurate 1 gram tablet (Hiprex) 1 g PO QHS Check with primary doctor 12/03/21 [History Last Taken Unknown] metoprolol tartrate 25 mg tablet 25 mg PO BID Check with primary doctor 12/03/21 [History Last Taken Unknown] nitrofurantoin monohydrate/macrocrystals 100 mg capsule (Macrobid) 100 mg PO PRN PRN INTERCOURSE 12/03/21 [History Last Taken Unknown] venlafaxine 150 mg capsule,extended release 24 hr (Effexor XR) 150 mg PO DAILY Check with primary doctor 12/03/21 [History Last Taken Unknown] aripiprazole 10 mg tablet 10 mg PO DAILY 07/07/22 [History Last Taken Unknown] rivaroxaban 10 mg tablet (Xarelto) 10 mg PO DAILY 07/07/22 [History Last Taken Unknown] Allergy/AdvReac Type Severity Reaction Status Date / Time gabapentin [From Neurontin] Allergy Rash Verified 07/29/22 05:51 morphine Allergy HYPOTENSION Verified 07/29/22 05:51 Penicillins Allergy Rash Verified 07/29/22 05:51 Sulfa (Sulfonamide Allergy Rash Verified 07/29/22 05:51 Antibiotics) Family History Other Hyperlipidemia Surgical History H/O: History of appendectomy History of embolic filter insertion History of hysterectomy Hx of cholecystectomy Social History Smoking Status: Current every day smoker tobacco type: e-cigarettes and smokeless tobacco ROS ROS ED Constitutional Constitutional ED: Denies chills or fever(s) Eyes Eyes: Denies change in vision or diplopia ENT ENT ED: Denies rhinorrhea or sore throat Cardiovascular Cardiovascular: Denies chest pain or palpitations Respiratory/Chest Respiratory/Chest: Denies cough or dyspnea Gastrointestinal Gastrointestinal: Reports nausea; Denies abdominal pain or vomiting Genitourinary Genitourinary ED: Denies dysuria or hematuria Musculoskeletal Musculoskeletal: Denies arthralgias Integumentary Denies abscess or Abrasions Neurologic Neurologic: Reports headache(s) and paresthesias LUE Psychiatric Psychiatric: Denies anxiety or depression EXAM Physical Exam Const Vital Signs: 07/29/22 05:45 07/29/22 06:50 07/29/22 07:09 Temperature 98.3 F Temperature Source Temporal Pulse Rate 69 67 Respiratory Rate 18 18 Blood Pressure 136/73 H Blood Pressure Mean 94 Pulse Ox 95 96 Oxygen Delivery Method Room Air Room Air Room Air Positive well nourished General Appearance ED: NAD; Negative for pallor HEENT Reports normocephalic and TM's clear atraumatic Tympanic Membrane ED: Yes TM's clear Eyes PERRL and EOMs intact bilaterally Neck no lymphadenopathy Resp normal respiratory effort and clear to auscultation bilaterally Auscultation: Negative for rales, rhonchi or wheezes Cardio regular rate and regular rhythm GI non-tender and non-distended Neuro oriented x3 and CN's II-XII intact bilaterally Sensorium / Orientation: awake and alert Coordination / Balance: [id number] test normal Speech: speech normal Psych mental status grossly normal Skin General Skin Exam: Negative for jaundice or pallor NIHSS NIHSS Initial: 1a Level of Consciousness: 0 1b LOC Questions (Score 2 if aphasic/stupor): 0 1c LOC Commands (Only score 1st attempt): 0 2 Best Gaze (If aphasic, use reflexive mvmts.): 0 3 Visual: 0 4 Facial Palsy: 0 5 Motor Arm Right (UN = amputation/fusion): 0 5 Motor Arm Left: 0 6 Motor Leg Right: 0 6 Motor Leg Left: 0 7 Limb ataxia (Only + if out of proportion): 0 8 Sensory (Aphasia/stupor=0 or 1, coma=2): 1 9 Best Language: 0 10 Dysarthria (mute, coma=2, intubated=UN): 0 11 Extinction and Inattention (only scored if +): 0 Total Score: 1 MDM MDM MDM Narrative Medical decision making narrative: Patient presenting with headache. She states that she also has some numbness in the left arm. On examination this is her only subjective complaint. There is no focal neurologic deficits. There is no lateralizing signs or symptoms. Urinary stroke scale score is 1 for the simple paresthesia in left arm. She has a headache and she is given Compazine and Benadryl. I obtained a CT brain which shows no acute abnormality. There is a small area of encephalomalacia in the right parietal lobe consistent with her history. CBC and BMP are unremarkable. High-sensitivity troponin is 3. EKG sinus rhythm with a ventricular rate of 72 bpm without sign of ischemic change or dysrhythmia. Chest x-ray on my interpretation shows no acute cardiopulmonary process and the radiologist interprets this and agrees. Reviewed the medical record and saw she was recently here for evaluation on 07/06/2022 and she was not speaking. She did not have any neurologic deficits aced on her history either. Patient was ultimately evaluated by social work and was dispositioned to a psychiatric hospital for abnormal behavior. Apparently she was in the emergency room walking into other patient's rooms and talking to them and acting abnormally. Her last visit she did test positive for MDMA, amphetamines, barbiturates. Patient has a known history of drug and alcohol abuse. I did test her urine today and she is positive for barbiturates and cannabinoids. I visualized the patient walking to the restroom holding a urine specimen cup in her left hand without any difficulty. She has a stable gait. I do not believe she has an acute stroke or even a TIA. She is anticoagulated on Xarelto. I think this is likely behavioral and possibly drug associated. I think the patient can be discharged home. Impression: 1. Headache 2. Paresthesia Lab Data Attestation: I reviewed the patient's lab results. Labs: Laboratory Results - last 24 hr 07/29/22 07/29/22 07/29/22 06:12 06:12 06:12 WBC 9.0 RBC 4.39 Hgb 13.7 Hct 41.3 MCV 94.1 MCH 31.2 MCHC 33.2 RDW Std Deviation 44.3 H RDW Coeff of Megan 12.8 Plt Count 355 MPV 9.2 Immature Gran % (Auto) 0.200 Neut % (Auto) 55.4 Lymph % (Auto) 33.8 Dunn % (Auto) 8.1 Eos % (Auto) 1.9 Baso % (Auto) 0.6 Absolute Neuts (auto) 5.0 Absolute Lymphs (auto) 3.03 Nucleated RBC % 0 PT 14.8 INR 1.2 APTT 21.6 L Sodium 139 Potassium 3.8 Chloride 104 Carbon Dioxide 26.0 Anion Gap 9 BUN 17 Creatinine 0.98 Estim Creat Clear Calc 58.70 Est GFR (MDRD) Af Amer 78 Est GFR (MDRD) Non-Af 65 BUN/Creatinine Ratio 17.4 Glucose 104 Calcium 9.2 Troponin I High Sens 3 Urine Opiates Screen Urine Methadone Screen Ur Barbiturates Screen Ur Phencyclidine Scrn Ur Amphetamines Screen MDMA (Ecstasy) Screen U Benzodiazepines Scrn Urine Cocaine Screen U Cannabinoids Screen Ur Drug Screen Comment POC Glucose 07/29/22 07/29/22 07:08 07:30 WBC RBC Hgb Hct MCV MCH MCHC RDW Std Deviation RDW Coeff of Megan Plt Count MPV Immature Gran % (Auto) Neut % (Auto) Lymph % (Auto) Dunn % (Auto) Eos % (Auto) Baso % (Auto) Absolute Neuts (auto) Absolute Lymphs (auto) Nucleated RBC % PT INR APTT Sodium Potassium Chloride Carbon Dioxide Anion Gap BUN Creatinine Estim Creat Clear Calc Est GFR (MDRD) Af Amer Est GFR (MDRD) Non-Af BUN/Creatinine Ratio Glucose Calcium Troponin I High Sens Urine Opiates Screen NEGATIVE Urine Methadone Screen NEGATIVE Ur Barbiturates Screen POSITIVE H Ur Phencyclidine Scrn NEGATIVE Ur Amphetamines Screen NEGATIVE MDMA (Ecstasy) Screen NEGATIVE U Benzodiazepines Scrn NEGATIVE Urine Cocaine Screen NEGATIVE U Cannabinoids Screen POSITIVE H Ur Drug Screen Comment POC Glucose 117 H Radiography Diagnostic Testing: Clinical Impression(s) from Imaging Studies Brain CT 07/29/22 06:34 IMPRESSION: Small old area of encephalomalacia right parietal lobe unchanged. No acute intracranial abnormality. ASSESSMENT: ASPECTS ([place] Stroke Program Early CT Score) is 10. Electronically Signed: Nilesh Christine MD at 7:04 EST , ADDENDUM: 07/29/22 0712 IMPRESSION: Small old area of encephalomalacia right parietal lobe unchanged. No acute intracranial abnormality. ASSESSMENT: ASPECTS ([place] Stroke Program Early CT Score) is 10. N.B. : The above Results were Read Back by Nilesh Christine MD to Dada Sherwood MD, and understanding confirmed on 07/29/2022 07:05:23 (ET). Electronically Signed: Nilesh Christine MD at 7:04 EST , Chest X-Ray 07/29/22 06:55 IMPRESSION: 1. Mild cardiomegaly. 2. No acute cardiopulmonary abnormality. Electronically Signed: Nilesh Christine MD at 7:12 EST , Discharge Plan Triage Chief Complaint: Headache ED Provider: Dada Sherwood Dx/Rx/DC Orders Instructions: Self-Care for Headaches, ED Paraesthesias Prescriptions: No Action furosemide 40 MG tablet 40 mg PO BID potassium chloride 10 MEQ tablet 40 meq PO TID valacyclovir [Valtrex] 500 MG tablet 500 mg PO DAILY melatonin 3 MG capsule 10 mg PO QHS magnesium oxide 200 MG tablet 400 mg PO BID dicyclomine 10 MG capsule 20 mg PO 4X/DAY PRN (Reason: ABD DISCOMFORT) Linzess 290 mcg capsule 290 mcg PO DAILY Label Comments: take 1 capsule by mouth once daily clonidine HCl 0.2 mg Tablet 0.2 mg PO DAILY PRN (Reason: Anxiety) methenamine hippurate [Hiprex] 1 gram Tablet 1 g PO QHS ascorbic acid (vitamin C) [Vitamin C] 1,000 mg Tablet 1 g PO DAILY clonazepam [Klonopin] 0.5 mg Tablet 0.5 mg PO BID PRN (Reason: Seizures) venlafaxine [Effexor XR] 150 mg Capsule,Extended Release 24hr 150 mg PO DAILY hydroxyzine HCl 50 mg Tablet 50 mg PO QHS metoprolol tartrate 25 mg Tablet 25 mg PO BID nitrofurantoin monohyd/m-cryst [Macrobid] 100 mg Capsule 100 mg PO PRN PRN (Reason: INTERCOURSE) aripiprazole 10 mg tablet 10 mg PO DAILY Xarelto 10 mg tablet 10 mg PO DAILY Primary Care Provider: Rin Rivera NP Referrals: Rin Rivera NP, [employer] TECHNOLOGIST[employer] [Primary Care Provider] - Disposition Disposition: Home, Self Care
[2022-07-29 06:42] LABS: Absolute Lymphocyte Count 3.03 X10^3/uL (0.83-4.51); Basophil# 0.05 X10^3/uL; Basophil% 0.6 % (0-1); Eosinophil# 0.17 X10^3/uL; Eosinophils% 1.9 % (0-5); Hematocrit 41.3 % (37-47); Hemoglobin 13.7 g/dL (12.0-15.0); Lymphocyte # 3.03 X10^3/ul (0.83-4.51); Lymphocyte % 33.8 % (19-41); Mean Corp Hgb Conc 33.2 g/dL (32-36); Mean Corpuscular Hgb 31.2 pg (27.0-32.0); Mean Corpuscular Volume 94.1 fL (81-99); Mean Platelet Vol. 9.2 fl (6.2-12.0); Monocyte# 0.73 X10^3/uL; Monocyte% 8.1 % (0-10); NRBC Flagged by Analyzer 0 % (0-5); Neutrophil # 4.97 X10^3/uL (2.7-7.7); Neutrophil % 55.4 % (47-70); Platelet Count 355 K/mm3 (150-450); RBC Distribution Width CV 12.8 % (11.6-14.6); RBC Distribution Width SD 44.3 fl (35.1-43.9); Red Blood Count 4.39 M/mm3 (4.2-5.4)
[2022-07-29 06:51] LABS: International Normalized Ratio 1.2; Partial Thromboplast Time 21.6 Seconds (24.1-36.2); Prothrombin Time (Protime)PT. 14.8 SECONDS (11.7-14.9)
--- NOTE | 2022-07-29 06:55 | RAD_ITS ---
EXAM: XR CHEST, 1 VIEW CLINICAL INDICATION: Neuro deficit, acute, stroke suspected TECHNIQUE: Frontal view of the chest. This report was created using [employer] report generation technology. COMPARISON: 04/22/2022. FINDINGS: LUNGS AND PLEURAL SPACES: Unremarkable. No consolidation or edema. No pneumothorax. No effusion. HEART: Mild cardiomegaly. MEDIASTINUM: Central airways and mediastinal contour are unremarkable. BONES/JOINTS: Unremarkable. SOFT TISSUES: Unremarkable. RAD/Chest 1 View IMPRESSION: 1. Mild cardiomegaly. 2. No acute cardiopulmonary abnormality. Electronically Signed: Nilesh Christine MD at 7:12 EST ,
[2022-07-29 07:02] LABS: Anion Gap 9 (5-15); BUN 17 mg/dL (7-18); BUN/Creat Ratio 17.4 RATIO (10-20); Calcium,Total 9.2 mg/dL (8.5-10.1); Chloride 104 mmol/L (98-107); Creatinine, Serum 0.98 mg/dL (0.55-1.02); EST Glomerular Filtration Rate 65 mL/min (>60); Est Glom Filt Rate - Afr Amer 78 mL/min (>60); Glucose 104 mg/dL (74-106); Potassium 3.8 mmol/L (3.5-5.1); Sodium Level 139 mmol/L (136-145); Troponin-I HS 3 pg/mL (3.0-54.0)
[2022-07-29 07:09] VITALS: PULSE 67; RESP 18; O2SAT 96
--- NOTE | 2022-07-29 07:10 | ED.RN ---
MULTIPLE ATTEMPTS TO OBTAIN AN IV WITH THREE NURSE,ABLE TO GET BLOOD,BUT UNABLE TO OBTAIN IV.SHAYNA Frank IS TRYING PRESENTLY.
[2022-07-29 07:30] LABS: Bedside Glucose 117 mg/dL (74-106)
--- NOTE | 2022-07-29 07:32 | ED.RN ---
PT AMBULATED TO BR AND WALKED WITH STEADY GAIT. PT WAS ALSO USING BINA ARMS TO OPEN DOORS AND CARRY HER URINE SAMPLE BACK TO THE ROOM. PHYSICIAN AWARE
--- NOTE | 2022-07-29 07:34 | ED.RN ---
this rn was unable to obtain IV access. Dr Sherwood notified at this time.
[2022-07-29] MEDS: proCHLORPERazine 10 MG/2 ML Vial IM (07:38)
[2022-07-29] MEDS: DiphenhydrAMINE 25 MG Capsule PO (07:38)
[2022-07-29 07:51] LABS: Amphetamine Urine VISTA NEGATIVE (<1000 ng/mL); Barbiturate Urine VISTA POSITIVE (< 200 ng/mL); Benzodiazepine Urine VISTA NEGATIVE (< 200 ng/mL); Cocaine Urine VISTA NEGATIVE (< 300 ng/mL); Ecstacy Urine VISTA NEGATIVE (< 500 ng/mL); Methadone Urine VISTA NEGATIVE (< 300 ng/mL); PCP Urine VISTA NEGATIVE (< 25 ng/mL); THC Urine VISTA POSITIVE (< 50 ng/mL); Vista UDS pH Range 6
[2022-07-29] MEDS: Ketorolac 15 MG/ML Vial IM (08:11)
[2022-07-29 08:15] VITALS: BP 125/82; PULSE 76; RESP 14; O2SAT 99
== END 2022-07-29 08:16 | disposition home or self-care (01) ==
PROVIDERS: Emergency Provider Student in an Organized Health Care Education/Training Program; PCP Nurse Practitioner Family; Visit Provider Student in an Organized Health Care Education/Training Program
DX: R20.2 Paresthesia of skin (principal); D68.51 Activated protein C resistance; E78.5 Hyperlipidemia, unspecified; I10 Essential (primary) hypertension; R51.9 Headache, unspecified; F17.210 Nicotine dependence, cigarettes, uncomplicated; Z86.73 Personal history of transient ischemic attack (TIA), and cerebral infarction without residual deficits; F32.A Depression, unspecified; F41.9 Anxiety disorder, unspecified; Z86.718 Personal history of other venous thrombosis and embolism; Z79.01 Long term (current) use of anticoagulants; Z79.899 Other long term (current) drug therapy
CPT/HCPCS: 70450; 71045; 80048; 80307; 82962; 84484; 85025; 85610; 85730; 93005; 99285; A4216

== ENCOUNTER 2022-11-11 13:38 | Emergency (ER) | payer MEDICARE, SELFPAY ==
[2022-11-11 13:41] VITALS: BP 143/118; PULSE 101; RESP 16; TEMP 35.6; O2SAT 98; BMI 39.6
--- NOTE | 2022-11-11 14:08 | CM.ED ---
SW updated MD Corbin and KAY Lynn that patient has a care plan. Sammie SEARS
--- NOTE | 2022-11-11 14:14 | CT_ITS ---
EXAM: CT ABDOMEN AND PELVIS WITHOUT INTRAVENOUS CONTRAST CLINICAL INDICATION: LLQ pain, IV infiltrated, unable to get new access TECHNIQUE: Helically acquired images were obtained of the abdomen and pelvis without intravenous contrast. This CT exam was performed using one or more of the following dose reduction techniques: automated exposure control, adjustment of the mA and/or kV according to patient size, and/or use of iterative reconstruction technique. This report was created using [employer] report generation technology. CONTRAST: IV 100mL [id number] COMPARISON: 12/03/2021. FINDINGS: LOWER THORAX: Unremarkable. Lung bases are clear. No cardiomegaly. No significant pericardial effusion. ABDOMEN: LIVER: Unremarkable. Homogeneous. GALLBLADDER AND BILE DUCTS: Gallbladder is surgically absent. No intra- or extrahepatic biliary ductal dilation. PANCREAS: Unremarkable. No focal cystic mass. SPLEEN: Unremarkable. Normal size without focal cystic or solid mass. ADRENALS: Unremarkable. No nodules. KIDNEYS AND URETERS: Unremarkable. Normal renal size and position. No hydronephrosis. STOMACH AND BOWEL: Unremarkable. No stomach or bowel distention. No focal inflammatory change. PELVIS: APPENDIX: No evidence of acute appendicitis. BLADDER: Unremarkable. REPRODUCTIVE: Unremarkable as visualized. No mass. ABDOMEN and PELVIS: INTRAPERITONEAL SPACE: Unremarkable. No free fluid, free air, or retroperitoneal hematoma. BONES/JOINTS: Unremarkable. No suspicious lytic or blastic abnormality. SOFT TISSUES: Unremarkable. No discrete abdominal or pelvic wall hernia. VASCULATURE: Infrarenal IVC filter is again demonstrated with strut contacting the right renal margin and the aortic wall on the left. Aorta is normal in caliber. LYMPH NODES: Unremarkable. No enlarged lymph nodes. CT/Abdomen/Pelvis without Cont IMPRESSION: No acute findings in the abdomen or pelvis. Electronically Signed: Anitra Rockwell MD at 17:33 EST Reading Location ID and State: [id number] / Tel , Service support ,
--- NOTE | 2022-11-11 14:15 | ED.VIS.GI ---
HPI HPI - GI History of Present Illness Chief Complaint: Abd Pain Narrative Narrative: 46-year-old female multiple medical problems, presents with left lower quadrant abdominal pain. She states she has not had a bowel movement in 6 days. She is constipated, and tried to have a bowel movement this morning. She was straining on the toilet, and states that she passed small amount of stool mixed with blood, then had bleeding per rectum. She denies any fevers or chills, no nausea or vomiting, no problems with urination. In the past, she states that she had a bowel obstructions secondary to ileus in June of last year for which she was hospitalized and they performed bowel rest. Additionally, she does take Xarelto, but has had intracranial hemorrhages, DVTs, and other problems. She presents because of the pain in her left lower quadrant and her rectal bleeding. No exacerbating or alleviating factors. [facility] Medical History Anxiety Depression Depression DVT (deep venous thrombosis) Epilepsy Factor V Leiden mutation Former smoker GERD (gastroesophageal reflux disease) History of CVA (cerebrovascular accident) History of pancreatitis History of pulmonary embolus (PE) Hyperlipidemia Hypertension Pancreatitis Presence of IVC filter Pulmonary embolism Seizure disorder Stroke/cerebrovascular accident Substance abuse Home Medications furosemide 40 mg tablet 40 mg PO BID water pill 09/10/16 [History Last Taken 09/09/19] potassium chloride 10 mEq tablet,extended release(part/cryst) 40 meq PO TID supplment 09/10/16 [History Last Taken 09/09/19] valacyclovir 500 mg tablet (Valtrex) 500 mg PO DAILY herpes 10/25/18 [History Last Taken 09/09/19] melatonin 3 mg capsule 10 mg PO QHS sleep 05/26/19 [History Last Taken 09/08/19] magnesium oxide 400 mg PO BID Check with primary doctor 10/09/20 [History Last Taken Unknown] dicyclomine 10 mg capsule 20 mg PO 4X/DAY PRN ABD DISCOMFORT 02/28/21 [History Last Taken Unknown] linaclotide 290 mcg capsule (Linzess) 290 mcg PO DAILY Check with primary doctor 05/28/21 [History Last Taken Unknown] ascorbic acid (vitamin C) 1,000 mg tablet (Vitamin C) 1 g PO DAILY Check with primary doctor 12/03/21 [History Last Taken Unknown] clonazepam 0.5 mg tablet (Klonopin) 0.5 mg PO BID PRN Seizures 12/03/21 [History Last Taken Unknown] clonidine HCl 0.2 mg tablet 0.2 mg PO DAILY PRN Anxiety 12/03/21 [History Last Taken Unknown] hydroxyzine HCl 50 mg tablet 50 mg PO QHS Check with primary doctor 12/03/21 [History Last Taken Unknown] methenamine hippurate 1 gram tablet (Hiprex) 1 g PO QHS Check with primary doctor 12/03/21 [History Last Taken Unknown] metoprolol tartrate 25 mg tablet 25 mg PO BID Check with primary doctor 12/03/21 [History Last Taken Unknown] nitrofurantoin monohydrate/macrocrystals 100 mg capsule (Macrobid) 100 mg PO PRN PRN INTERCOURSE 12/03/21 [History Last Taken Unknown] venlafaxine 150 mg capsule,extended release 24 hr (Effexor XR) 150 mg PO DAILY Check with primary doctor 12/03/21 [History Last Taken Unknown] aripiprazole 10 mg tablet 10 mg PO DAILY 07/07/22 [History Last Taken Unknown] rivaroxaban 10 mg tablet (Xarelto) 10 mg PO DAILY 07/07/22 [History Last Taken Unknown] Allergy/AdvReac Type Severity Reaction Status Date / Time gabapentin [From Neurontin] Allergy Rash Verified 07/29/22 05:51 morphine Allergy HYPOTENSION Verified 07/29/22 05:51 Penicillins Allergy Rash Verified 07/29/22 05:51 Sulfa (Sulfonamide Allergy Rash Verified 07/29/22 05:51 Antibiotics) Family History Other Hyperlipidemia Surgical History H/O: History of appendectomy History of embolic filter insertion History of hysterectomy Hx of cholecystectomy Social History Smoking Status: Current every day smoker tobacco type: e-cigarettes and smokeless tobacco ROS ROS ED ROS Narrative Constitutional: No fever, no chills. HEENT: No sore throat. No neck pain. No loss of vision. No rhinorrhea. Cardiovascular: No chest pain. No palpitations. No pedal edema. Respiratory: No cough, no shortness of breath. Abdominal: Left lower quadrant abdominal pain. No nausea. No vomiting. Positive constipation with rectal bleeding. Genitourinary: No dysuria. No hematuria. Musculoskeletal: No myalgias. No arthralgias. Neurologic: No headaches. No dizziness. No lightheadedness. Skin: No rash. No change in color. Psychiatric: No depression. No anxiety. EXAM Physical Exam Narrative Exam Narrative: Afebrile. Vital signs noted. HEENT: Normocephalic. Atraumatic. PERRL, EOMI. Neck soft and supple. No point tenderness or step off. Cardiovascular: Regular rate and rhythm with intermittent tachycardia. No murmurs, rubs, or gallops appreciated. Respiratory: No tachypnea. Lungs clear to auscultation bilaterally. Gastrointestinal: Abdomen soft, obese, mild tenderness left lower quadrant with normoactive bowel sounds. No rebound or guarding. Neurological: Awake. Alert. Nonfocal, nonlateralizing. Skin: No rash. Normal color. No pallor. Musculoskeletal: No pedal edema. Full range of motion extremities. Const Vital Signs: 11/11/22 13:41 Temperature 96.1 F L Temperature Source Temporal Pulse Rate 101 H Respiratory Rate 16 Blood Pressure 143/118 H Blood Pressure Mean 126 Pulse Ox 98 Oxygen Delivery Method Room Air MDM MDM MDM Narrative Medical decision making narrative: Comprehensive work-up was pursued. Concern is for diverticulitis with rectal bleeding versus obstruction. Additionally, she may have an internal hemorrhoid or diverticular bleed, versus mucosal bleed. Rectal examination was initially deferred, and declined by the patient as she is not having brisk, rectal hemorrhaging. I reviewed her laboratory work and her CBC is normal with a normal white count of 10.0, hemoglobin normal at 13.7 with hematocrit 41.8. Normal platelet count of 369. Her CMP is also grossly unremarkable except for alk phos elevated at 133 with an ALT of 102 which I think is nonspecific, but no elevated BUN at 12 and creatinine normal at 0.9. Urinalysis is negative for infection with 0 WBCs. I do not feel antibiotics are indicated. Initially I had ordered a CT with IV contrast, but her IV infiltrated. CT was obtained without contrast which is grossly unremarkable after interpretation by myself, and I reviewed the radiology report which confirms my interpretation of no acute process, no bowel obstruction, no constipation or fecal impaction. At this point in time, I do feel she can be discharged safely home with follow-up to her primary care provider. Additionally, she was referred to gastroenterology to follow-up with as needed. She is to return with any increased rectal bleeding, new or worsening symptoms. For analgesia, according to her care plan, she was given Bentyl here in the emergency department along with Zofran for nausea which seems to have controlled her symptoms. Disposition is discharged home in stable condition. Lab Data Attestation: I reviewed the patient's lab results. Labs: Laboratory Results - last 24 hr 11/11/22 11/11/22 11/11/22 14:45 15:25 15:25 WBC 10.0 RBC 4.50 Hgb 13.7 Hct 41.8 MCV 92.9 MCH 30.4 MCHC 32.8 RDW Std Deviation 43.1 RDW Coeff of Megan 12.7 Plt Count 369 MPV 8.4 Immature Gran % (Auto) 0.500 Neut % (Auto) 63.9 Lymph % (Auto) 26.7 [place] % (Auto) 6.2 Eos % (Auto) 2.0 Baso % (Auto) 0.7 Absolute Neuts (auto) 6.4 Absolute Lymphs (auto) 2.67 Nucleated RBC % 0 Sodium 140 Potassium 3.9 Chloride 104 Carbon Dioxide 27.0 Anion Gap 9 BUN 12 Creatinine 0.91 Estim Creat Clear Calc 63.22 Est GFR (MDRD) Af Amer 85 Est GFR (MDRD) Non-Af 70 BUN/Creatinine Ratio 13.1 Glucose 105 Calcium 9.4 Total Bilirubin 0.20 AST 35 ALT 102 H Alkaline Phosphatase 133 H Total Protein 7.4 Albumin 3.8 Globulin 3.6 Albumin/Globulin Ratio 1.1 Urine Color Yellow Urine Clarity Cloudy Urine pH 8.0 Ur Specific [place] 1.015 Urine Protein Negative Urine Glucose (UA) Normal Urine Ketones Negative Urine Occult Blood Negative Urine Nitrite Negative Urine Bilirubin Negative Urine Urobilinogen Normal Ur Leukocyte Esterase Negative Urine RBC 0 SEEN Urine WBC 0 SEEN Ur Squamous Epith Cells 0-5 SEEN Amorphous Sediment 1+ Urine Bacteria 1+ Urine Mucus RARE Radiography Diagnostic Testing: Clinical Impression(s) from Imaging Studies Abdomen/Pelvis CT 11/11/22 14:14 IMPRESSION: No acute findings in the abdomen or pelvis. Electronically Signed: Anitra Rockwell MD at 17:33 EST Reading Location ID and State: [id number] / Tel , Service support , Discharge Plan Triage Chief Complaint: Abd Pain Other Complaint: GI Bleed ED Provider: Ludin Momin Dx/Rx/DC Orders Clinical Impression: Constipation, Abdominal pain, Rectal bleeding Instructions: ED Abdominal Pain Unkn Cause Fem, ED Constipation (Adult), ED Lower GI Bleeding (Stable) Prescriptions: No Action furosemide 40 MG tablet 40 mg PO BID potassium chloride 10 MEQ tablet 40 meq PO TID valacyclovir [Valtrex] 500 MG tablet 500 mg PO DAILY melatonin 3 MG capsule 10 mg PO QHS magnesium oxide 200 MG tablet 400 mg PO BID dicyclomine 10 MG capsule 20 mg PO 4X/DAY PRN (Reason: ABD DISCOMFORT) Linzess 290 mcg capsule 290 mcg PO DAILY Label Comments: take 1 capsule by mouth once daily clonidine HCl 0.2 mg Tablet 0.2 mg PO DAILY PRN (Reason: Anxiety) methenamine hippurate [Hiprex] 1 gram Tablet 1 g PO QHS ascorbic acid (vitamin C) [Vitamin C] 1,000 mg Tablet 1 g PO DAILY clonazepam [Klonopin] 0.5 mg Tablet 0.5 mg PO BID PRN (Reason: Seizures) venlafaxine [Effexor XR] 150 mg Capsule,Extended Release 24hr 150 mg PO DAILY hydroxyzine HCl 50 mg Tablet 50 mg PO QHS metoprolol tartrate 25 mg Tablet 25 mg PO BID nitrofurantoin monohyd/m-cryst [Macrobid] 100 mg Capsule 100 mg PO PRN PRN (Reason: INTERCOURSE) aripiprazole 10 mg tablet 10 mg PO DAILY Xarelto 10 mg tablet 10 mg PO DAILY Primary Care Provider: Rin Rivera NP Referrals: Friend,Leonidas, DO [Med Staff - Active Staff] - As Needed Rin Rivera NP, [facility] [Primary Care Provider] - As soon as possible Activity Restrictions/Additional Instructions: You had a negative work-up today. Return to the emergency department with increased rectal bleeding, new or worsening symptoms. Disposition Disposition: Home, Self Care
[2022-11-11 14:54] LABS: Red Blood Cells-Urine 0 SEEN /hpf (0-5); White Blood Cells 0 SEEN /hpf (0-5)
[2022-11-11 15:12] LABS: Color, Urine Yellow (Yellow); Glucose, Dipstick Normal (Normal); Ketone-Dipstick Negative (Negative); Leukocyte Esterase-Dipstick Negative /ul (Negative); Nitrite-Dipstick Negative (Negative); Occult Blood-Urine Negative /ul (Negative); Protein-Dipstick Negative (Negative); Specific Gravity, Urine 1.015 (1.002-1.030); Urine Bilirubin Dipstick Negative (Negative); Urine Clarity Cloudy (Clear); Urine Urobilinogen Normal (Normal)
[2022-11-11 15:20] LABS: Squamous Epithelial Cells - UA 0-5 SEEN /hpf (5-10)
[2022-11-11 15:21] LABS: Amorphous Sediment 1+; Bacteria 1+ /hpf (None Seen); Mucous, Urine RARE /hpf (<or=2+)
[2022-11-11 15:43] LABS: Absolute Lymphocyte Count 2.67 X10^3/uL (0.83-4.51); Absolute Neutrophil Count 6.4 X10^3/uL (2.0-7.7); Basophil# 0.07 X10^3/uL; Basophil% 0.7 % (0-1); Hematocrit 41.8 % (37-47); Hemoglobin 13.7 g/dL (12.0-15.0); Lymphocyte # 2.67 X10^3/ul (0.83-4.51); Lymphocyte % 26.7 % (19-41); Mean Corp Hgb Conc 32.8 g/dL (32-36); Mean Corpuscular Hgb 30.4 pg (27.0-32.0); Mean Corpuscular Volume 92.9 fL (81-99); Mean Platelet Vol. 8.4 fl (6.2-12.0); Monocyte# 0.62 X10^3/uL; Monocyte% 6.2 % (0-10); NRBC Flagged by Analyzer 0 % (0-5); Neutrophil # 6.39 X10^3/uL (2.7-7.7); Neutrophil % 63.9 % (47-70); Platelet Count 369 K/mm3 (150-450); RBC Distribution Width CV 12.7 % (11.6-14.6); RBC Distribution Width SD 43.1 fl (35.1-43.9)
[2022-11-11] MEDS: Contrast Allergy Safety Check IV (15:47)
[2022-11-11 15:55] LABS: ALB/GLOB Ratio 1.1 RATIO (0.9-2.4); AST(SGOT) 35 U/L (15-37); Alanine Aminotransfer ALT/SGPT 102 U/L (13-56); Albumin, Serum 3.8 g/dL (3.2-5.0); Alkaline Phosphatase 133 U/L (45-117); Anion Gap 9 (5-15); BUN 12 mg/dL (7-18); BUN/Creat Ratio 13.1 RATIO (10-20); Calcium,Total 9.4 mg/dL (8.5-10.1); Chloride 104 mmol/L (98-107); Creatinine, Serum 0.91 mg/dL (0.55-1.02); EST Glomerular Filtration Rate 70 mL/min (>60); Est Glom Filt Rate - Afr Amer 85 mL/min (>60); Estimated Creatinine Clearance 63.22 ml/min; Globulin 3.6 g/dL (2.2-4.2); Glucose 105 mg/dL (74-106); Potassium 3.9 mmol/L (3.5-5.1); Protein, Total 7.4 g/dL (6.4-8.2); Sodium Level 140 mmol/L (136-145)
[2022-11-11] MEDS: Ondansetron 4 MG/2 ML Vial IV (15:58)
[2022-11-11] MEDS: Dicyclomine 20 MG/2 ML Vial IM (15:59)
[2022-11-11 18:18] VITALS: BP 116/83; PULSE 84; RESP 16; O2SAT 100
== END 2022-11-11 18:22 | disposition home or self-care (01) ==
PROVIDERS: Emergency Provider Emergency Medicine; PCP Nurse Practitioner Family; Visit Provider Emergency Medicine
DX: K59.00 Constipation, unspecified (principal); D68.51 Activated protein C resistance; K62.5 Hemorrhage of anus and rectum; F17.220 Nicotine dependence, chewing tobacco, uncomplicated; E78.5 Hyperlipidemia, unspecified; I10 Essential (primary) hypertension; R10.9 Unspecified abdominal pain; Z86.73 Personal history of transient ischemic attack (TIA), and cerebral infarction without residual deficits; Z86.718 Personal history of other venous thrombosis and embolism; F32.A Depression, unspecified; F41.9 Anxiety disorder, unspecified; Z79.01 Long term (current) use of anticoagulants
CPT/HCPCS: 74176; 80053; 81001; 85025; 96372; 96374; 99283; A4216; J2405

== ENCOUNTER 2023-02-05 15:55 | Inpatient (IN) | payer MEDICARE, SELFPAY ==
[2023-02-05 15:57] VITALS: BP 150/127; PULSE 96; RESP 17; TEMP 35.3; O2SAT 96; BMI 39.9
--- NOTE | 2023-02-05 16:16 | CT_ITS ---
STUDY: CT ABDOMEN AND PELVIS WITH CONTRAST REASON FOR EXAM: Female, 47 years old. abd pain RADIATION DOSAGE (If Supplied By Facility): CTDIvol = ( 21.97 ) mGy, DLP = ( 1356.19 ) mGycm TECHNIQUE: Transaxial images were obtained from the dome of the diaphragm to the symphysis pubis without oral contrast. IV 100mL Isovue-300 was administered. Sagittal and coronal images were reconstructed. Individualized dose optimization techniques were used for this CT. COMPARISON: 11/08 .23 FINDINGS: The visualized lung bases are unremarkable. The visualized portions of the heart are within normal limits. Normal liver. There are surgical clips in the gallbladder fossa consistent with a prior cholecystectomy. Normal spleen. There is diffuse enlargement of the pancreas with walter-pancreatic edema suggesting acute pancreatitis. No focal fluid collection. Normal bilateral adrenal glands. Normal right kidney. Normal left kidney. Normal visualized stomach. Normal small intestine. Normal colon. There is non-visualization of the appendix. Normal abdominal aorta. There is a bird''s nest IVC filter, stable in appearance. Normal retroperitoneum. Normal urinary bladder. There is absence of the uterus consistent with a prior hysterectomy. Normal abdominal wall. No destructive bony process. CT/Abdomen/Pelvis W IV Cont ONLY IMPRESSION: Interstitial edematous pancreatitis without demonstrable necrosis or focal fluid collection. Electronically Signed: Jordy Shrestha (Brooks), at 17:30 EDT ,
--- NOTE | 2023-02-05 16:27 | EDS_ITS ---
HPI HPI - GI History of Present Illness Chief Complaint: Abd Pain Informant: patient Narrative Narrative: Presents by EMS from home increasing mid abdominal pain rating to her back since 10 AM. Had a bowel movement at 2 PM. Slightly red however she ate tomatoes. She does take Xarelto history of factor V Leiden and DVTs PEs IVC filter. She is passing gas however states feels similar to a bowel obstruction. Cholecystectomy appendectomy hysterectomy in the past. Last obstruction a year ago. Also states he gets pancreatitis yearly last time began this month was not admitted for that. Denies alcohol use however records note history of alcohol use in the past. Nausea and vomiting. No hematemesis. Prior similar symptoms: Yes PFSH PFSH Medical History Anxiety Depression Depression DVT (deep venous thrombosis) Epilepsy Factor V Leiden mutation Former smoker GERD (gastroesophageal reflux disease) History of CVA (cerebrovascular accident) History of pancreatitis History of pulmonary embolus (PE) Hyperlipidemia Hypertension Pancreatitis Presence of IVC filter Pulmonary embolism Seizure disorder Stroke/cerebrovascular accident Substance abuse Home Medications furosemide 40 mg tablet 40 mg PO DAILY water pill 09/10/16 [History Last Taken 02/05/23] potassium chloride 10 mEq tablet,extended release(part/cryst) 20 meq PO TID supplment 09/10/16 [History Last Taken 02/05/23] valacyclovir 500 mg tablet (Valtrex) 500 mg PO DAILY herpes 10/25/18 [History Last Taken 02/05/23] melatonin 3 mg capsule 10 mg PO QHS sleep 05/26/19 [History Last Taken 09/08/19] magnesium oxide 400 mg PO DAILY supplement 10/09/20 [History Last Taken Unknown] linaclotide 290 mcg capsule (Linzess) 290 mcg PO DAILY bowels 05/28/21 [History Last Taken 02/05/23] ascorbic acid (vitamin C) 1,000 mg tablet (Vitamin C) 1 g PO DAILY supplement 12/03/21 [History Last Taken 02/05/23] clonazepam 0.5 mg tablet (Klonopin) 0.5 mg PO BID PRN Seizures 12/03/21 [History Last Taken Unknown] clonidine HCl 0.2 mg tablet 0.2 mg PO QHS anxiety 12/03/21 [History Last Taken 02/04/23] methenamine hippurate 1 gram tablet (Hiprex) 1 g PO QHS bladder infections 12/03/21 [History Last Taken 02/04/23] metoprolol tartrate 25 mg tablet 25 mg PO BID heart rate 12/03/21 [History Last Taken 02/05/23] nitrofurantoin monohydrate/macrocrystals 100 mg capsule (Macrobid) 100 mg PO DAILY PRN PRN INTERCOURSE 12/03/21 [History Last Taken Unknown] venlafaxine 150 mg capsule,extended release 24 hr (Effexor XR) 225 mg PO QHS mood 12/03/21 [History Last Taken 02/04/23] rivaroxaban 10 mg tablet (Xarelto) 10 mg PO DAILY blood thinner 07/07/22 [History Last Taken 02/05/23] cholecalciferol (vitamin D3) 1,250 mcg (50,000 unit) capsule 50,000 unit PO FR supplement 02/05/23 [History Last Taken 02/04/23] lacosamide 100 mg tablet (Vimpat) 100 mg PO DAILY seizures 02/05/23 [History Last Taken 02/05/23] lacosamide 200 mg tablet (Vimpat) 200 mg PO QHS seizures 02/05/23 [History Last Taken 02/04/23] lactulose 10 gram/15 mL oral solution 15 ml PO BID PRN PRN Constipation 02/05/23 [History Last Taken Unknown] ropinirole 0.5 mg tablet 0.5 mg PO BID restless legs 02/05/23 [History Last Taken 02/05/23] Allergy/AdvReac Type Severity Reaction Status Date / Time gabapentin [From Neurontin] Allergy Rash Verified 02/05/23 15:59 morphine Allergy HYPOTENSION Verified 02/05/23 15:59 Penicillins Allergy Rash Verified 02/05/23 15:59 Sulfa (Sulfonamide Allergy Rash Verified 02/05/23 15:59 Antibiotics) Family History Other Hyperlipidemia Surgical History H/O: History of appendectomy History of embolic filter insertion History of hysterectomy Hx of cholecystectomy Social History Smoking Status: Current every day smoker tobacco type: e-cigarettes and smokeless tobacco ROS ROS ED Constitutional Constitutional ED: Denies chills, fever(s) or sweats Eyes Eyes: Denies change in vision ENT ENT ED: Denies dysphagia or sore throat Cardiovascular Cardiovascular: Denies chest pain, leg edema, palpitations or racing heartbeat Respiratory/Chest Respiratory/Chest: Denies cough, dyspnea or dyspnea on exertion Gastrointestinal Gastrointestinal: Reports abdominal pain, nausea and vomiting; Denies diarrhea Genitourinary Genitourinary ED: Denies dysuria, hematuria or urinary frequency Musculoskeletal Musculoskeletal: Denies back pain, extremity pain or neck pain Integumentary Denies rash or wounds Neurologic Neurologic: Denies headache(s), paresthesias or weakness EXAM Physical Exam Const Vital Signs: 02/05/23 15:57 02/05/23 16:59 02/05/23 17:56 Temperature 95.6 F L 96.5 F L Temperature Source Temporal Temporal Pulse Rate 96 100 92 Respiratory Rate 17 18 19 H Blood Pressure 150/127 H 129/99 H 136/99 H Blood Pressure Mean 134 109 111 Pulse Ox 96 98 100 Oxygen Delivery Method Room Air Room Air Room Air 02/05/23 18:02 Temperature 96.6 F L Temperature Source Temporal Pulse Rate 93 Respiratory Rate 18 Blood Pressure 136/99 H Blood Pressure Mean 111 Pulse Ox 100 Oxygen Delivery Method Room Air Positive well nourished and well developed Constitutional Narrative: Diaphoresis headache, fatigue, nontoxic General Appearance ED: well developed HEENT Reports moist mucous membranes normocephalic and atraumatic Eyes PERRL, EOMs intact bilaterally and conjunctivae normal General Eye ED: Yes normal appearance of both eyes Neck no lymphadenopathy and supple General: Negative for tenderness Chest Wall Chest: Negative for tenderness Resp normal respiratory effort and normal air movement Effort and Inspection: symmetric chest movement; Negative for respiratory distress Cardio regular rate, regular rhythm and no murmurs Peripheral Pulses: pulses 2+ throughout GI normal to inspection, nondistended, normoactive bowel sounds GI Narrative: Mid abdominal tenderness no guarding or rebound. Auscultation: hypoactive bowel sounds Palpation: Negative for guarding or rebound tenderness present Back/Spine no CVA tenderness and no thoracic nor lumbar tenderness Extremity normal to inspection General Extremety ED: Negative for edema or tenderness General Extremity: Negative for edema Neuro oriented x3 and no sensory deficits noted Sensorium / Orientation: awake and alert Skin no rashes or lesions noted and no wounds MDM MDM MDM Narrative Medical decision making narrative: Interventions / MDM: Differential diagnosis: Pancreatitis, bowel obstruction, colitis Diagnosis considered but do not suspect: N/A My EKG interpretation: N/A Imaging independently reviewed and interpreted by myself: CT abdomen pelvis with IV contrast: Acute pancreatitis with stranding there is no pseudocyst noted. No obstructive findings. External documents reviewed: N/A Test considered but not ordered:N/A ED course: Patient sweaty there is difficulty try to establish IV, initial order for labs and IM medications however IV was established through ultrasound left brachial, fluids ordered IV Dilaudid Zofran fluids. Abdominal labs with CT scan ordered. 1700: Lab reviewed with him for acute pancreatitis lipase 1450 liver enzymes were normal. White count 13.6. Creatinine 0.88. Patient had large emesis, Reglan 5 mg IV was given. 1725: Patient reported increasing pain, increasing slight agitation redirectable. We will give Benadryl potential Reglan side effects, will treat additional Dilaudid for pain. I did review CT scan abdomen pelvis noting stranding around the pancreas there is no cysts. We will plan to admit. Patient kept n.p.o. with IV fluids continued. 1800: CT scan reported by radiology consistent with pancreatitis no abscess or cyst. I discussed with hospitalist Dr. Basilio for admission. 1843: Per nursing increasing pain and vomiting in the room, additional Zofran and Dilaudid ordered. Re-evaluation: Disposition discussed with patient/family/significant other: Patient Case discussed with consulting clinician: N/A Lab Data Attestation: I reviewed the patient's lab results. Labs: Laboratory Results - last 24 hr 02/05/23 02/05/23 02/05/23 16:25 16:25 16:25 WBC 13.6 H RBC 5.15 Hgb 16.1 H Hct 45.8 MCV 88.9 MCH 31.3 MCHC 35.2 RDW Std Deviation 39.2 RDW Coeff of Megan 12.1 Plt Count 374 MPV 8.5 Immature Gran % (Auto) 0.300 Neut % (Auto) 70.6 H Lymph % (Auto) 21.2 [place] % (Auto) 5.9 Eos % (Auto) 1.5 Baso % (Auto) 0.5 Absolute Neuts (auto) 9.6 H Absolute Lymphs (auto) 2.89 Nucleated RBC % 0 PT 12.8 INR 1.0 APTT 21.6 L Sodium 136 Potassium 3.9 Chloride 97 L Carbon Dioxide 24.0 Anion Gap 15 BUN 17 Creatinine 0.88 Estim Creat Clear Calc 64.67 Est GFR (MDRD) Af Amer 89 Est GFR (MDRD) Non-Af 73 BUN/Creatinine Ratio 19.4 Glucose 150 H Calcium 9.8 Total Bilirubin 0.40 AST 82 H ALT 159 H Alkaline Phosphatase 111 Total Protein 8.1 Albumin 4.3 Globulin 3.8 Albumin/Globulin Ratio 1.1 Lipase 1450 H Radiography Diagnostic Testing: Clinical Impression(s) from Imaging Studies Abdomen/Pelvis CT 02/05/23 16:16 IMPRESSION: Interstitial edematous pancreatitis without demonstrable necrosis or focal fluid collection. Electronically Signed: Jordy Shrestha (Brooks), at 17:30 EDT Reading Location ID and State: [facility] / [place] , Service support , Discharge Plan Dx/Rx/DC Orders Clinical Impression: Acute pancreatitis, Abdominal pain, Nausea & vomiting Disposition Disposition: Acute Care Hospital [facility] Discharge Date/Time: 02/05/23 19:07
[2023-02-05] MEDS: HYDROmorphone 1 MG/ML Syringe IV ×4 (16:28→21:50)
[2023-02-05] MEDS: Ondansetron 4 MG/2 ML Vial IV ×2 (16:28→18:46)
[2023-02-05] MEDS: 0.9% Normal Saline 1,000 ML 1000 ML IV (16:29)
[2023-02-05 16:36] LABS: Absolute Lymphocyte Count 2.89 X10^3/uL (0.83-4.51); Absolute Neutrophil Count 9.6 X10^3/uL (2.0-7.7); Basophil# 0.07 X10^3/uL; Basophil% 0.5 % (0-1); Eosinophils% 1.5 % (0-5); Hematocrit 45.8 % (37-47); Hemoglobin 16.1 g/dL (12.0-15.0); Lymphocyte # 2.89 X10^3/ul (0.83-4.51); Lymphocyte % 21.2 % (19-41); Mean Corp Hgb Conc 35.2 g/dL (32-36); Mean Corpuscular Hgb 31.3 pg (27.0-32.0); Mean Corpuscular Volume 88.9 fL (81-99); Mean Platelet Vol. 8.5 fl (6.2-12.0); Monocyte% 5.9 % (0-10); NRBC Flagged by Analyzer 0 % (0-5); Neutrophil # 9.62 X10^3/uL (2.7-7.7); Neutrophil % 70.6 % (47-70); Platelet Count 374 K/mm3 (150-450); RBC Distribution Width CV 12.1 % (11.6-14.6); RBC Distribution Width SD 39.2 fl (35.1-43.9); Red Blood Count 5.15 M/mm3 (4.2-5.4); White Blood Count 13.6 K/mm3 (4.4-11.0)
[2023-02-05 16:50] LABS: Prothrombin Time (Protime)PT. 12.8 SECONDS (11.7-14.9)
[2023-02-05 16:51] LABS: Partial Thromboplast Time 21.6 Seconds (24.1-36.2)
[2023-02-05 16:55] LABS: ALB/GLOB Ratio 1.1 RATIO (0.9-2.4); AST(SGOT) 82 U/L (15-37); Alanine Aminotransfer ALT/SGPT 159 U/L (13-56); Albumin, Serum 4.3 g/dL (3.2-5.0); Alkaline Phosphatase 111 U/L (45-117); Anion Gap 15 (5-15); BUN 17 mg/dL (7-18); BUN/Creat Ratio 19.4 RATIO (10-20); Calcium,Total 9.8 mg/dL (8.5-10.1); Chloride 97 mmol/L (98-107); Creatinine, Serum 0.88 mg/dL (0.55-1.02); EST Glomerular Filtration Rate 73 mL/min (>60); Est Glom Filt Rate - Afr Amer 89 mL/min (>60); Estimated Creatinine Clearance 64.67 ml/min; Globulin 3.8 g/dL (2.2-4.2); Glucose 150 mg/dL (74-106); Lipase 1450 U/L (13-75); Potassium 3.9 mmol/L (3.5-5.1); Protein, Total 8.1 g/dL (6.4-8.2); Sodium Level 136 mmol/L (136-145)
[2023-02-05 16:59] VITALS: BP 129/99; PULSE 100; RESP 18; TEMP 35.8; O2SAT 98
[2023-02-05] MEDS: Metoclopramide 10 MG/2 ML Vial 5 MG IV (17:20)
[2023-02-05] MEDS: DiphenhydrAMINE 50 MG/ML Syringe 25 MG IV (17:32)
[2023-02-05 17:56] VITALS: BP 136/99; PULSE 92; RESP 19; O2SAT 100
--- NOTE | 2023-02-05 17:58 | HP.PCM.HOS_ITS ---
HPI - General General Date of Admission: 02/05/23 Date of Service: 02/05/23 Chief Complaint: abdominal pain HPI Narrative DOROTHEA RUTLEDGE, is a 47 F with a PMH as outlined who presents via the ED on 02/05/2023 with a complaint of abdominal pain which started this morning. She has had pancreatitis in hte past, with the last episode being last year November. She came in with a complaint of abdominal pain radiating to her back. Pain had started ~ 10am. She had a bowel movement and is still passing gas. She used to drink alcohol but doesnt drink anymore. She admitted to nausea and vomiting but deneid any fever or chills. Review of systems was otherwise negative. She is s/p cholecystectomy. She takes xarelto for a history of DVT and PE o/a of Factor V Leiden deficiency. Vitals in the ED were blood pressure 129/99, pulse rate of 100 and respiratory rate of 18 and temperature of 96.5 Fahrenheit. She was saturating 98% on room air. CBC showed hemoglobin of 16.1 and WBC of 13.6 with platelets of 374. Chemistry was remarkable for ALT of 159 and AST of 82 with ALP of 111. Lipase level is thousand 450. CT of the abdomen pelvis showed interstitial edematous pancreatitis without demonstrable necrosis or focal fluid collection. She says she has been referred to GI in but has not followed up yet. She has been admitted to be managed for acute recurrent pancreatitis. [facility] Medical History Anxiety Depression Depression DVT (deep venous thrombosis) Epilepsy Factor V Leiden mutation Former smoker GERD (gastroesophageal reflux disease) History of CVA (cerebrovascular accident) History of pancreatitis History of pulmonary embolus (PE) Hyperlipidemia Hypertension Pancreatitis Presence of IVC filter Pulmonary embolism Seizure disorder Stroke/cerebrovascular accident Substance abuse Home Medications furosemide 40 mg tablet 40 mg PO BID water pill 09/10/16 [History Last Taken 09/09/19] potassium chloride 10 mEq tablet,extended release(part/cryst) 40 meq PO TID supplment 09/10/16 [History Last Taken 09/09/19] valacyclovir 500 mg tablet (Valtrex) 500 mg PO DAILY herpes 10/25/18 [History Last Taken 09/09/19] melatonin 3 mg capsule 10 mg PO QHS sleep 05/26/19 [History Last Taken 09/08/19] magnesium oxide 400 mg PO BID Check with primary doctor 10/09/20 [History Last Taken Unknown] dicyclomine 10 mg capsule 20 mg PO 4X/DAY PRN ABD DISCOMFORT 02/28/21 [History Last Taken Unknown] linaclotide 290 mcg capsule (Linzess) 290 mcg PO DAILY Check with primary doctor 05/28/21 [History Last Taken Unknown] ascorbic acid (vitamin C) 1,000 mg tablet (Vitamin C) 1 g PO DAILY Check with primary doctor 12/03/21 [History Last Taken Unknown] clonazepam 0.5 mg tablet (Klonopin) 0.5 mg PO BID PRN Seizures 12/03/21 [History Last Taken Unknown] clonidine HCl 0.2 mg tablet 0.2 mg PO DAILY PRN Anxiety 12/03/21 [History Last Taken Unknown] hydroxyzine HCl 50 mg tablet 50 mg PO QHS Check with primary doctor 12/03/21 [History Last Taken Unknown] methenamine hippurate 1 gram tablet (Hiprex) 1 g PO QHS Check with primary doctor 12/03/21 [History Last Taken Unknown] metoprolol tartrate 25 mg tablet 25 mg PO BID Check with primary doctor 12/03/21 [History Last Taken Unknown] nitrofurantoin monohydrate/macrocrystals 100 mg capsule (Macrobid) 100 mg PO PRN PRN INTERCOURSE 12/03/21 [History Last Taken Unknown] venlafaxine 150 mg capsule,extended release 24 hr (Effexor XR) 225 mg PO DAILY C heck with primary doctor 12/03/21 [History Last Taken Unknown] aripiprazole 10 mg tablet 10 mg PO DAILY 07/07/22 [History Last Taken Unknown] rivaroxaban 10 mg tablet (Xarelto) 10 mg PO DAILY 07/07/22 [History Last Taken Unknown] Allergy/AdvReac Type Severity Reaction Status Date / Time gabapentin [From Neurontin] Allergy Rash Verified 02/05/23 15:59 morphine Allergy HYPOTENSION Verified 02/05/23 15:59 Penicillins Allergy Rash Verified 02/05/23 15:59 Sulfa (Sulfonamide Allergy Rash Verified 02/05/23 15:59 Antibiotics) Family History Other Hyperlipidemia Surgical History H/O: History of appendectomy History of embolic filter insertion History of hysterectomy Hx of cholecystectomy Social History Smoking Status: Current every day smoker tobacco type: e-cigarettes and smokeless tobacco ROS Constitutional Constitutional: Reports anorexia, fatigue and malaise; Denies change in weight, chills, fever(s) or weakness Eyes Eyes: Denies change in vision ENT HEENT: Denies dysphagia or headache(s) Cardiovascular Cardiovascular: Denies chest pain, dyspnea on exertion, edema, lightheadedness, orthopnea, palpitations, paroxysmal nocturnal dyspnea or rapid heart rate Respiratory/Chest Respiratory/Chest: Denies cough, dyspnea, shortness of breath at rest or shortness of breath with exertion Gastrointestinal Gastrointestinal: Reports abdominal pain, nausea and vomiting; Denies constipation, diarrhea, dyspepsia, hematemesis or hematochezia Genitourinary Genitourinary: Denies burning urination or dysuria Musculoskeletal Musculoskeletal: Denies arthralgias or joint pain Neurologic Neurologic: Denies confusion, dizziness, focal weakness or seizures Psychiatric Psychiatric: Denies anxiety Vital Signs Vital Signs Vital Signs: 02/05/23 15:57 02/05/23 16:59 Temperature 95.6 F L 96.5 F L Temperature Source Temporal Temporal Pulse Rate 96 100 Respiratory Rate 17 18 Blood Pressure 150/127 H 129/99 H Blood Pressure Mean 134 109 Pulse Ox 96 98 Oxygen Delivery Method Room Air Room Air Weight Weight: 225 lb 1.471 oz Body Mass Index (BMI) 39.9 Physical Exam Const alert and oriented x3 Constitutional Narrative: in moderate distress due to pain General Appearance: cooperative HEENT normocephalic, head/scalp atraumatic, hearing grossly normal bilaterally and moist oral mucous membranes Mouth: oral and palatal mucosa normal Eyes PERRL, EOMs intact bilaterally and conjunctivae normal Neck no lymphadenopathy and supple Resp normal respiratory effort, no retractions, no use of accessory muscles and clear to auscultation bilaterally Cardio regular rate, regular rhythm, S1 normal heart sound, S2 normal heart sound and no murmurs GI GI Narrative: moderate epigastric tenderness, no guarding or rebound tenderness. Obese abdomen Extremity normal to inspection, full ROM and no clubbing, cyanosis or edema Neuro oriented x3, CN's II-XII intact bilaterally and moves all extremities Sensorium / Orientation: awake and alert Motor Exam: strength 5/5 throughout Psych affect normal Results Lab / Micro Data Result Diagrams: 02/05/23 16:25 02/05/23 16:25 Labs: Laboratory Results - last 24 hr 02/05/23 16:25: WBC 13.6 H, RBC 5.15, Hgb 16.1 H, Hct 45.8, MCV 88.9, MCH 31.3, MCHC 35.2, RDW Std Deviation 39.2, RDW Coeff of Megan 12.1, Plt Count 374, MPV 8.5, Immature Gran % (Auto) 0.300, Neut % (Auto) 70.6 H, Lymph % (Auto) 21.2, [place] % (Auto) 5.9, Eos % (Auto) 1.5, Baso % (Auto) 0.5, Absolute Neuts (auto) 9.6 H, Absolute Lymphs (auto) 2.89, Nucleated RBC % 0 02/05/23 16:25: Sodium 136, Potassium 3.9, Chloride 97 L, Carbon Dioxide 24.0, Anion Gap 15, BUN 17, Creatinine 0.88, Estim Creat Clear Calc 64.67, Est GFR (MDRD) Af Amer 89, Est GFR (MDRD) Non-Af 73, BUN/Creatinine Ratio 19.4, Glucose 150 H, Calcium 9.8, Total Bilirubin 0.40, AST 82 H, ALT 159 H, Alkaline Phosphatase 111, Total Protein 8.1, Albumin 4.3, Globulin 3.8, Albumin/Globulin Ratio 1.1, Lipase 1450 H 02/05/23 16:25: PT 12.8, INR 1.0, APTT 21.6 L Radiology Impression Abdomen/Pelvis CT 02/05/23 16:16 IMPRESSION: Interstitial edematous pancreatitis without demonstrable necrosis or focal fluid collection. Electronically Signed: Jordy Shrestha (Brooks), at 17:30 EDT , Assessment & Plan Assessment/Plan (1) Acute pancreatitis: PLAN: Plan #Acute recurrent pancreatitis * Admitted with a complaint of abdominal pain. Lipase is thousand 450. States she stopped drinking alcohol. * She has had a history of recurrent pancreatitis with the last episode being in November 2021. * CT of the abdomen and pelvis showed interstitial edematous pancreatitis without demonstrable necrosis or focal fluid collection. She is status postcholecystectomy. * Keep NPO. Hydrate with IV fluids aggressively. IV morphine as needed for pain as well as p.o. oxycodone * Consider gastroenterology consult if abdominal pain does not improve * #Hypertension: On clonidine and metoprolol #History of recurrent DVT and PE due to factor V Leiden deficiency: Has IVC filter in place. On Xarelto #Depression and anxiety: On clonazepam and venlafaxine #History of Herpes Simplex virus infection: on valacyclovir #Histoyr of seizures: on zonisamide and lacosamide DVT prophylaxis: Already on Xarelto Total time spent on evaluation and management of patient, reviewing chart, discussing plan with patientand , discussion with nursing and ancillary staff as well as documentation: 77 mins Charges/Coding Visit Charges Inpatient E&M: 70466 Init Hosp L3
[2023-02-05 18:02] VITALS: BP 136/99; PULSE 93; RESP 18; TEMP 35.9; O2SAT 100
[2023-02-05] MEDS: 0.9% Normal Saline 1,000 ML 150 ML IV (18:51)
[2023-02-05 19:15] VITALS: BP 179/113; PULSE 74; RESP 18; TEMP 36.6; O2SAT 97
[2023-02-05 19:33] VITALS: BMI 38.5
[2023-02-05] MEDS: Ketorolac 30 MG/ML Syringe IV (19:52)
[2023-02-05] MEDS: proCHLORPERazine 10 MG/2 ML Vial IV (20:33)
[2023-02-05] MEDS: 0.9% Saline Lock 10 ML Syringe IV (20:39)
[2023-02-05] MEDS: cloNIDine HCl 0.2 MG Tablet PO (20:50)
[2023-02-05 21:56] VITALS: BP 170/119; PULSE 80
[2023-02-05] MEDS: Metoprolol Tartrate 25 MG Tablet PO (21:56)
[2023-02-05] MEDS: Lacosamide 100 MG Tablet 200 MG PO (23:44)
[2023-02-05] MEDS: Rivaroxaban 10 MG Tablet PO (23:44)
[2023-02-05] MEDS: MELATONIN 3 MG TABLET PO (23:45)
[2023-02-05] MEDS: oxyCODONE 5 MG Tablet 10 MG PO (23:45)
[2023-02-06] VITALS (7 sets, daily range): BP systolic 151–159; BP diastolic 86–112; PULSE 66–107; RESP 16–18; TEMP 36.4–37.6; O2SAT 95–96
[2023-02-06] MEDS: proCHLORPERazine 10 MG/2 ML Vial IV ×2 (00:51→08:02)
[2023-02-06] MEDS: HYDROmorphone 1 MG/ML Syringe IV ×3 (00:51→08:02)
[2023-02-06] MEDS: 0.9% Normal Saline 1,000 ML 150 ML IV ×4 (00:59→20:27)
[2023-02-06] MEDS: Ketorolac 30 MG/ML Syringe IV ×2 (03:00→21:31)
[2023-02-06] MEDS: Ondansetron 4 MG/2 ML Vial IV ×2 (03:00→19:58)
[2023-02-06] MEDS: oxyCODONE 5 MG Tablet 10 MG PO ×2 (05:33→19:57)
[2023-02-06 06:26] LABS: Absolute Lymphocyte Count 1.89 X10^3/uL (0.83-4.51); Basophil# 0.04 X10^3/uL; Basophil% 0.2 % (0-1); Eosinophil# 0.01 X10^3/uL; Eosinophils% 0.1 % (0-5); Hematocrit 49.2 % (37-47); Hemoglobin 16.2 g/dL (12.0-15.0); Lymphocyte # 1.89 X10^3/ul (0.83-4.51); Lymphocyte % 10.5 % (19-41); Mean Corp Hgb Conc 32.9 g/dL (32-36); Mean Corpuscular Hgb 31.2 pg (27.0-32.0); Mean Corpuscular Volume 94.8 fL (81-99); Mean Platelet Vol. 8.6 fl (6.2-12.0); Monocyte% 5.6 % (0-10); NRBC Flagged by Analyzer 0 % (0-5); Neutrophil # 14.99 X10^3/uL (2.7-7.7); Neutrophil % 83.2 % (47-70); Platelet Count 307 K/mm3 (150-450); RBC Distribution Width CV 12.5 % (11.6-14.6); RBC Distribution Width SD 42.9 fl (35.1-43.9); Red Blood Count 5.19 M/mm3 (4.2-5.4)
[2023-02-06 06:56] LABS: ALB/GLOB Ratio 1.1 RATIO (0.9-2.4); AST(SGOT) 140 U/L (15-37); Alanine Aminotransfer ALT/SGPT 167 U/L (13-56); Albumin, Serum 3.9 g/dL (3.2-5.0); Alkaline Phosphatase 103 U/L (45-117); Anion Gap 14 (5-15); BUN 24 mg/dL (7-18); BUN/Creat Ratio 17.5 RATIO (10-20); Calcium,Total 8.7 mg/dL (8.5-10.1); Chloride 100 mmol/L (98-107); Creatinine, Serum 1.37 mg/dL (0.55-1.02); EST Glomerular Filtration Rate 44 mL/min (>60); Est Glom Filt Rate - Afr Amer 53 mL/min (>60); Estimated Creatinine Clearance 41.54 ml/min; Globulin 3.5 g/dL (2.2-4.2); Glucose 219 mg/dL (74-106); Potassium 4.5 mmol/L (3.5-5.1); Protein, Total 7.4 g/dL (6.4-8.2); Sodium Level 137 mmol/L (136-145)
[2023-02-06] MEDS: 0.9% Saline Lock 10 ML Syringe IV (08:02)
--- NOTE | 2023-02-06 10:11 | PCM.PN.HOSP ---
Reason for Visit Reason for Visit: Diagnoses Acute pancreatitis without necrosis or infection, unspecified (02/05/23) Subjective Subjective Seen and examined today, she complains of generalized abdominal pain and requests an increase in her pain medication. I have agreed to increase her pain medication to Dilaudid 1.5 mg every 4 hours as needed. I have also decided to place her on a full liquid diet at this time. Patient states her last episode of pancreatitis was in January of this year, she denies that the pancreatitis was caused from alcohol-she states that it was not really determined what had caused the pancreatitis. Objective Data Objective Data Vital Signs: Vital Signs Temp Pulse Resp BP Pulse Ox O2 Del Method 98.1 F 85 16 157/99 H 95 Room Air 02/06/23 07:53 02/06/23 07:53 02/06/23 07:53 02/06/23 07:53 02/06/23 07:53 02/06/23 07:53 Oxygen Delivery Method Room Air Weight: 98.656 kg Body Mass Index (BMI) 38.5 Intake & Output: Intake and Output for Last 24 Hours 02/04/23 02/05/23 02/06/23 23:59 23:59 23:59 Intake Total 1110 / 1110 1785 / 1785 Output Total 300 / 300 Balance 1110 / 1110 1485 / 1485 Lab / Micro Data Result Diagrams: 02/06/23 06:05 02/06/23 06:05 Labs: Laboratory Results - last 24 hr 02/05/23 16:25: WBC 13.6 H, RBC 5.15, Hgb 16.1 H, Hct 45.8, MCV 88.9, MCH 31.3, MCHC 35.2, RDW Std Deviation 39.2, RDW Coeff of Megan 12.1, Plt Count 374, MPV 8.5, Immature Gran % (Auto) 0.300, Neut % (Auto) 70.6 H, Lymph % (Auto) 21.2, [place] % (Auto) 5.9, Eos % (Auto) 1.5, Baso % (Auto) 0.5, Absolute Neuts (auto) 9.6 H, Absolute Lymphs (auto) 2.89, Nucleated RBC % 0 02/05/23 16:25: Sodium 136, Potassium 3.9, Chloride 97 L, Carbon Dioxide 24.0, Anion Gap 15, BUN 17, Creatinine 0.88, Estim Creat Clear Calc 64.67, Est GFR (MDRD) Af Amer 89, Est GFR (MDRD) Non-Af 73, BUN/Creatinine Ratio 19.4, Glucose 150 H, Calcium 9.8, Total Bilirubin 0.40, AST 82 H, ALT 159 H, Alkaline Phosphatase 111, Total Protein 8.1, Albumin 4.3, Globulin 3.8, Albumin/Globulin Ratio 1.1, Lipase 1450 H 02/05/23 16:25: PT 12.8, INR 1.0, APTT 21.6 L 02/06/23 06:05: WBC 18.0 H, RBC 5.19, Hgb 16.2 H, Hct 49.2 H, MCV 94.8 D, MCH 31.2, MCHC 32.9 D, RDW Std Deviation 42.9, RDW Coeff of Megan 12.5, Plt Count 307, MPV 8.6, Immature Gran % (Auto) 0.400, Neut % (Auto) 83.2 H, Lymph % (Auto) 10.5 L, [place] % (Auto) 5.6, Eos % (Auto) 0.1, Baso % (Auto) 0.2, Absolute Neuts (auto) 15.0 H, Absolute Lymphs (auto) 1.89, Nucleated RBC % 0 02/06/23 06:05: Sodium 137, Potassium 4.5, Chloride 100, Carbon Dioxide 23.0, Anion Gap 14, BUN 24 H, Creatinine 1.37 H, Estim Creat Clear Calc 41.54, Est GFR (MDRD) Af Amer 53 L, Est GFR (MDRD) Non-Af 44 L, BUN/Creatinine Ratio 17.5, Glucose 219 H, Calcium 8.7, Total Bilirubin 0.60, AST 140 H, ALT 167 H, Alkaline Phosphatase 103, Total Protein 7.4, Albumin 3.9, Globulin 3.5, Albumin/Globulin Ratio 1.1 Radiography Diagnostic Testing: Radiology Impression Abdomen/Pelvis CT 02/05/23 16:16 IMPRESSION: Interstitial edematous pancreatitis without demonstrable necrosis or focal fluid collection. Electronically Signed: Jordy Shrestha (Brooks), at 17:30 EDT , Physical Exam Const alert, oriented x3, no apparent distress, average body habitus and healthy appearing General Appearance: cooperative, well kempt and well developed Orientation / Consciousness: awake, oriented to person, oriented to place and oriented to time HEENT normocephalic, head/scalp atraumatic and moist oral mucous membranes Eyes PERRL, EOMs intact bilaterally and conjunctivae normal Neck supple, no JVD, thyroid normal and no carotid bruits General: trachea midline Resp normal respiratory effort, no retractions, no use of accessory muscles and clear to auscultation bilaterally Auscultation: Negative for rales, rhonchi or wheezes Cardio regular rate, regular rhythm, S1 normal heart sound, S2 normal heart sound, no murmurs, no rub and no gallops GI GI Narrative: Patient has moderate abdominal tenderness throughout the entire abdomen, there is no rebound abdominal tenderness noted, bowel sounds are present Extremity normal to inspection and no clubbing, cyanosis or edema Skin no rashes or lesions noted General Skin Exam: no breakdown Neuro oriented x3, CN's II-XII intact bilaterally, moves all extremities, no focal motor deficits and no sensory deficits noted Sensorium / Orientation: awake, alert, oriented to person, oriented to place and oriented to time Speech: speech normal Psych affect normal Assessment & Plan Assessment/Plan (1) Acute pancreatitis: PLAN: Plan 1. Acute recurrent pancreatitis-again I have advance the patient's diet, I will continue to administer IV fluids and IV pain medications as needed. #2 seizure disorder-patient will remain on her current seizure medications #3 factor V Leiden deficiency-patient is currently on Xarelto #4 chronic depression-patient is on Effexor Total clinical time spent by myself addressing patient's medical issues, reviewing all of her data, and collaborating with patient's care team: 35 minutes Charges/Coding Visit Charges Inpatient E&M: 74054 Subs Hosp L2
[2023-02-06] MEDS: Ascorbic Acid 500 MG Tablet 1000 MG PO (10:32)
[2023-02-06] MEDS: Metoprolol Tartrate 25 MG Tablet PO ×2 (10:32→20:27)
[2023-02-06] MEDS: Venlafaxine XR 75 MG Capsule 225 MG PO (10:33)
[2023-02-06] MEDS: Pramipexole Di-HCl 0.25 MG Tablet PO ×2 (10:33→20:28)
[2023-02-06] MEDS: Magnesium Chloride 64 MG Delay Rel.Tablet 128 MG PO ×2 (10:33→20:28)
[2023-02-06] MEDS: Lacosamide 100 MG Tablet PO (10:34)
[2023-02-06] MEDS: Acyclovir 200 MG Capsule 400 MG PO ×2 (10:34→20:30)
[2023-02-06] MEDS: HYDROmorphone 1 MG/ML Syringe 1.5 MG IV ×3 (11:45→22:29)
[2023-02-06] MEDS: Acetaminophen 325 MG Tablet 650 MG PO (19:57)
[2023-02-06] MEDS: Methenamine Hippurate 1 GM Tablet PO (20:27)
[2023-02-06] MEDS: MELATONIN 3 MG TABLET PO (20:28)
[2023-02-06] MEDS: hydrOXYzine PAM 25 MG Capsule 50 MG PO (20:29)
[2023-02-06] MEDS: Rivaroxaban 10 MG Tablet PO (20:29)
[2023-02-06] MEDS: Lacosamide 100 MG Tablet 200 MG PO (20:35)
[2023-02-07] VITALS (9 sets, daily range): BP systolic 126–169; BP diastolic 82–103; PULSE 70–116; RESP 17–18; TEMP 36.7–38.4; O2SAT 94–96
[2023-02-07] MEDS: HYDROmorphone 1 MG/ML Syringe 1.5 MG IV ×2 (02:06→06:00)
[2023-02-07] MEDS: 0.9% Normal Saline 1,000 ML 150 ML IV ×4 (03:07→21:40)
[2023-02-07] MEDS: Dicyclomine 10 MG Capsule 20 MG PO ×2 (08:37→14:09)
[2023-02-07] MEDS: clonazePAM 0.5 MG Tablet PO ×2 (08:37→21:37)
[2023-02-07] MEDS: Ketorolac 30 MG/ML Syringe IV ×2 (08:37→14:09)
[2023-02-07] MEDS: Lacosamide 100 MG Tablet PO (08:37)
[2023-02-07] MEDS: 0.9% Saline Lock 10 ML Syringe IV (08:38)
[2023-02-07] MEDS: Magnesium Chloride 64 MG Delay Rel.Tablet 128 MG PO ×2 (08:39→21:38)
[2023-02-07] MEDS: Pramipexole Di-HCl 0.25 MG Tablet PO ×2 (08:40→21:39)
[2023-02-07] MEDS: Acyclovir 200 MG Capsule 400 MG PO ×2 (08:40→21:39)
[2023-02-07] MEDS: Ascorbic Acid 500 MG Tablet 1000 MG PO (08:40)
[2023-02-07] MEDS: Metoprolol Tartrate 25 MG Tablet PO ×2 (08:41→21:41)
[2023-02-07] MEDS: Venlafaxine XR 75 MG Capsule 225 MG PO (08:41)
[2023-02-07] MEDS: cloNIDine HCl 0.2 MG Tablet PO (08:41)
--- NOTE | 2023-02-07 08:50 | NURSING ---
pt states she is going to have someone bring in her linzess from home and will notify nurse when it arrives
--- NOTE | 2023-02-07 09:20 | CASEMGMT ---
KAY LAWSON Assessment: Face to Face with pt for initial transition planning/care coordination assessment. RN LULU introduced self and role at [facility], pt voices understanding and consents to assessment. Pt is A/O x4 and answers all questions appropriately at this time. Pt lying in bed in no distress. Care providers, pharmacy, and demographics verified/updated. Admitting Dx: acute pancreatitis PCP:Rin Rivera NP Specialists:Jose Daniel, cardio; Kraig, sleep disorder; Pt states she was supposed to have had an appt with but did not schedule. She is open to CM scheduling if she needs an appt again. Preferred Pharmacy: [facility] Insurance: [employer] Pres[employer] Benefit: yes LNOK: Lizz Patricia, mother; Giancarlo Stevens, sig other Living Arrangements: Pt lives with sig other in a single story home with 3 steps to enter with a rail. Pt reports she is I in ADL's and denies concerns at home. Transportation: Pt does not drive much. Pt mother and sig other transport her to medical appts. DME/HHC/SNF: Pt denies having any DME in the home. Pt has had HHC in the past but she is unsure of which agency provided it. Pt denies SNF stays. Pt states no concerns with going home at time of dc. Pt states no further concerns/needs. CM to follow. Advised pt to ask CM if any further question/concerns/needs arise, voices understanding. Pt Goal: Home Plan: Home
[2023-02-07] MEDS: Lactulose 20 GM/30 ML UDC 10 GM PO ×2 (09:46→23:06)
[2023-02-07] MEDS: Acetaminophen 325 MG Tablet 650 MG PO ×3 (11:16→23:07)
[2023-02-07] MEDS: oxyCODONE 5 MG Tablet 10 MG PO ×3 (11:16→21:37)
--- NOTE | 2023-02-07 17:07 | NURSING ---
pt own med bottle Linzess sent down to pharmacy for verification.
--- NOTE | 2023-02-07 18:37 | PCM.PN.HOSP ---
Reason for Visit Reason for Visit: Diagnoses Acute pancreatitis without necrosis or infection, unspecified (02/05/23) Subjective Subjective Patient was seen and examined today, she states she has less abdominal pain today. I advance the patient's diet to a regular diet today. Objective Data Objective Data Vital Signs: Vital Signs Temp Pulse Resp BP Pulse Ox O2 Del Method 99.1 F 95 18 152/97 H 94 Room Air 02/07/23 14:11 02/07/23 14:11 02/07/23 14:11 02/07/23 14:11 02/07/23 14:11 02/07/23 14:11 Oxygen Delivery Method Room Air Weight: 98.656 kg Body Mass Index (BMI) 38.5 Intake & Output: Intake and Output for Last 24 Hours 02/05/23 02/06/23 02/07/23 23:59 23:59 23:59 Intake Total 1110 / 1110 3987.5 / 4187.5 3055.0 / 3055.0 Output Total 300 / 300 300 / 300 Balance 1110 / 1110 3687.5 / 3887.5 2755.0 / 2755.0 Lab / Micro Data Result Diagrams: 02/06/23 06:05 02/06/23 06:05 Physical Exam Narrative alert, oriented x3, no apparent distress, average body habitus and healthy appearing General Appearance: cooperative, well kempt and well developed Orientation / Consciousness: awake, oriented to person, oriented to place and oriented to time HEENT normocephalic, head/scalp atraumatic and moist oral mucous membranes Eyes PERRL, EOMs intact bilaterally and conjunctivae normal Neck supple, no JVD, thyroid normal and no carotid bruits General: trachea midline Resp normal respiratory effort, no retractions, no use of accessory muscles and clear to auscultation bilaterally Auscultation: Negative for rales, rhonchi or wheezes Cardio regular rate, regular rhythm, S1 normal heart sound, S2 normal heart sound, no murmurs, no rub and no gallops GI GI Narrative: Patient has moderate abdominal tenderness throughout the entire abdomen, there is no rebound abdominal tenderness noted, bowel sounds are diminished Extremity normal to inspection and no clubbing, cyanosis or edema Skin no rashes or lesions noted General Skin Exam: no breakdown Neuro oriented x3, CN's II-XII intact bilaterally, moves all extremities, no focal motor deficits and no sensory deficits noted Sensorium / Orientation: awake, alert, oriented to person, oriented to place and oriented to time Speech: speech normal Psych affect normal Assessment & Plan Assessment/Plan (1) Acute pancreatitis: PLAN: Plan 1. Acute recurrent pancreatitis-again I have advance the patient's diet, I will continue to administer IV fluids and IV pain medications as needed. Patient's diet was advanced today #2 seizure disorder-patient will remain on her current seizure medications #3 factor V Leiden deficiency-patient is currently on Xarelto #4 chronic depression-patient is on Effexor Total clinical time spent by myself addressing patient's medical issues, reviewing all of her data, and collaborating with patient's care team: 25 minutes Charges/Coding Visit Charges Inpatient E&M: 81051 [facility] Hosp L1
--- NOTE | 2023-02-07 19:15 | NURSING ---
pt updated on med/POC changes. encouraged ambulation for + flatus. pt verbalizes understanding and agreeable.
[2023-02-07] MEDS: Methenamine Hippurate 1 GM Tablet PO (21:38)
[2023-02-07] MEDS: Rivaroxaban 10 MG Tablet PO (21:38)
[2023-02-07] MEDS: Pantoprazole Sodium 40 MG Tablet PO (21:38)
[2023-02-07] MEDS: hydrOXYzine PAM 25 MG Capsule 50 MG PO (21:38)
[2023-02-07] MEDS: Lacosamide 100 MG Tablet 200 MG PO (21:39)
[2023-02-07] MEDS: MELATONIN 3 MG TABLET PO (21:39)
[2023-02-08 00:30] VITALS: TEMP 37.6
[2023-02-08] MEDS: Ketorolac 30 MG/ML Syringe IV (00:45)
[2023-02-08 02:57] VITALS: BP 125/84; PULSE 98; RESP 16; TEMP 37; O2SAT 99
[2023-02-08] MEDS: oxyCODONE 5 MG Tablet 10 MG PO ×2 (03:57→08:24)
[2023-02-08] MEDS: 0.9% Normal Saline 1,000 ML 150 ML IV (04:00)
[2023-02-08 08:23] VITALS: PULSE 125
[2023-02-08] MEDS: Pantoprazole Sodium 40 MG Tablet PO (08:23)
[2023-02-08] MEDS: Pramipexole Di-HCl 0.25 MG Tablet PO (08:23)
[2023-02-08] MEDS: Metoprolol Tartrate 25 MG Tablet PO (08:23)
[2023-02-08] MEDS: Acyclovir 200 MG Capsule 400 MG PO (08:23)
[2023-02-08] MEDS: Acetaminophen 325 MG Tablet 650 MG PO (08:24)
[2023-02-08] MEDS: Magnesium Chloride 64 MG Delay Rel.Tablet 128 MG PO (08:24)
[2023-02-08] MEDS: Ascorbic Acid 500 MG Tablet 1000 MG PO (08:24)
[2023-02-08] MEDS: clonazePAM 0.5 MG Tablet PO (08:25)
[2023-02-08] MEDS: LINACLOTIDE 290 MCG CAPSULE PO (08:25)
[2023-02-08] MEDS: Venlafaxine XR 75 MG Capsule 225 MG PO (08:25)
[2023-02-08 08:33] VITALS: PULSE 126; TEMP 36.7; O2SAT 98
[2023-02-08 09:23] VITALS: BP 150/93; PULSE 112; RESP 20; TEMP 37.5; O2SAT 96
[2023-02-08] MEDS: Lacosamide 100 MG Tablet PO (09:24)
[2023-02-08] MEDS: cloNIDine HCl 0.2 MG Tablet PO (09:24)
[2023-02-08] MEDS: Lactulose 20 GM/30 ML UDC 10 GM PO (09:24)
--- NOTE | 2023-02-08 09:53 | DCINST_ITS ---
Discharge Instructions Diet Discharge Diet: No restrictions Activity Discharge Activity: Return to Normal Activity Weight Bearing Status: Full weight bearing Follow Up Care Test Results: Test results from this visit will be discussed in further detail at your follow- up appointment, if applicable. Discharge Plan Admission Admit Date/Time: 02/05/23 18:31 Primary Reason for Your Visit: pancreatitis Attending Provider: Meño Pepper Primary Care Provider: Rin Rivera NP Consulting Providers: Desi Basilio Discharge Orders/Prescriptions Prescriptions: New oxycodone 5 mg tablet 5 mg PO Q6H PRN (Reason: pain) 2 Days Qty: 12 0RF Rx Instructions: 5-10 mg every six hours as needed for abdominal pain Continued furosemide 40 MG tablet 40 mg PO DAILY potassium chloride 10 MEQ tablet 20 meq PO TID valacyclovir [Valtrex] 500 MG tablet 500 mg PO DAILY melatonin 3 MG capsule 10 mg PO QHS magnesium oxide 200 MG tablet 400 mg PO DAILY Linzess 290 mcg capsule 290 mcg PO DAILY Label Comments: take 1 capsule by mouth once daily clonidine HCl 0.2 mg Tablet 0.2 mg PO QHS methenamine hippurate [Hiprex] 1 gram Tablet 1 g PO QHS ascorbic acid (vitamin C) [Vitamin C] 1,000 mg Tablet 1 g PO DAILY clonazepam [Klonopin] 0.5 mg Tablet 0.5 mg PO BID PRN (Reason: Seizures) venlafaxine [Effexor XR] 150 mg Capsule,Extended Release 24hr 225 mg PO QHS metoprolol tartrate 25 mg Tablet 25 mg PO BID nitrofurantoin monohyd/m-cryst [Macrobid] 100 mg Capsule 100 mg PO DAILY PRN PRN (Reason: INTERCOURSE) Xarelto 10 mg tablet 10 mg PO DAILY ropinirole 0.5 mg Tablet 0.5 mg PO BID lactulose 10 gram/15 mL Solution 15 ml PO BID PRN PRN (Reason: Constipation) cholecalciferol (vitamin D3) 1,250 mcg (50,000 unit) capsule 50,000 unit PO FR Label Comments: TAKE 1 CAPSULE BY MOUTH EVERY WEEK lacosamide [Vimpat] 100 mg Tablet 100 mg PO DAILY lacosamide [Vimpat] 200 mg Tablet 200 mg PO QHS Referrals / Follow Up: Rin Rivera NP, [facility] [Primary Care Provider] - Within 2 Weeks Disposition Disposition (needs filled in before D/C Order can be placed): Home, Self Care
--- NOTE | 2023-02-08 10:18 | DS.PCM_ITS ---
Providers Date of Admission: 02/05/23 Date of Discharge: 02/08/23 Primary Care Physician: ADRI GardnerC Reason For Visit: ACUTE PANCREATITIS Diagnosis Discharge Diagnosis (1) Acute pancreatitis: Status: Acute Code(s): K85.90 - Acute pancreatitis without necrosis or infection, unspecified Plan 1. Acute recurrent pancreatitis-again I have advance the patient's diet, I will continue to administer IV fluids and IV pain medications as needed. Patient's diet was advanced today #2 seizure disorder-patient will remain on her current seizure medications #3 factor V Leiden deficiency-patient is currently on Xarelto #4 chronic depression-patient is on Effexor Total clinical time spent by myself addressing patient's medical issues, reviewing all of her data, and collaborating with patient's care team: 25 minutes Medications at Discharge Home Medications furosemide 40 mg tablet 40 mg PO DAILY water pill 09/10/16 potassium chloride 10 mEq tablet,extended release(part/cryst) 20 meq PO TID supplment 09/10/16 valacyclovir 500 mg tablet (Valtrex) 500 mg PO DAILY herpes 10/25/18 melatonin 3 mg capsule 10 mg PO QHS sleep 05/26/19 magnesium oxide 400 mg PO DAILY supplement 10/09/20 linaclotide 290 mcg capsule (Linzess) 290 mcg PO DAILY bowels 05/28/21 ascorbic acid (vitamin C) 1,000 mg tablet (Vitamin C) 1 g PO DAILY supplement 12/03/21 clonazepam 0.5 mg tablet (Klonopin) 0.5 mg PO BID PRN Seizures 12/03/21 clonidine HCl 0.2 mg tablet 0.2 mg PO QHS anxiety 12/03/21 methenamine hippurate 1 gram tablet (Hiprex) 1 g PO QHS bladder infections 12/03/21 metoprolol tartrate 25 mg tablet 25 mg PO BID heart rate 12/03/21 nitrofurantoin monohydrate/macrocrystals 100 mg capsule (Macrobid) 100 mg PO DAILY PRN PRN INTERCOURSE 12/03/21 venlafaxine 150 mg capsule,extended release 24 hr (Effexor XR) 225 mg PO QHS mood 12/03/21 rivaroxaban 10 mg tablet (Xarelto) 10 mg PO DAILY blood thinner 07/07/22 cholecalciferol (vitamin D3) 1,250 mcg (50,000 unit) capsule 50,000 unit PO FR supplement 02/05/23 lacosamide 100 mg tablet (Vimpat) 100 mg PO DAILY seizures 02/05/23 lacosamide 200 mg tablet (Vimpat) 200 mg PO QHS seizures 02/05/23 lactulose 10 gram/15 mL oral solution 15 ml PO BID PRN PRN Constipation 02/05/23 ropinirole 0.5 mg tablet 0.5 mg PO BID restless legs 02/05/23 oxycodone 5 mg tablet 5 mg PO Q6H PRN pain 2 days #12 tabs 02/08/23 Hospital Course Operations None Procedures None Summary of Care Provided Minutes Spent on Discharge: 31 Hospital Course: This 47-year-old white female was seen in the emergency room at [facility] with complaints of generalized abdominal pain, work-up in the emergency room indicated the patient had acute recurrent pancreatitis, patient denied any recent alcohol ingestion. Patient was admitted to [place] [address], placed on IV fluids and given IV narcotics for pain, she was transitioned eventually to oral narcotics. On 02/08/2023, patient was seen and examined: On examination she appeared in good health and spirits, she does not appear to be in any distress. Vital signs as documented. Skin warm and dry and without overt rashes. Neck without JVD, thyroid appears normal, trachea is midline, neck is supple. Lungs clear, normal air movement was noted. Heart exam notable for regular rhythm, normal sounds and absence of murmurs, rubs or gallops. Abdomen unremarkable and without evidence of organomegaly, masses, or abdominal aortic enlargement, bowel sounds are present in all 4 quadrants, no abdominal tenderness was noted. Extremities nonedematous, no cyanosis was noted, no clubbing was noted. Neuro: Cranial nerves II through XII are grossly intact, no focal motor deficits were noted, sensation to light touch and pinprick is intact, motor exam 5/5 throughout. Psych: Patient is alert and oriented x3, she does not appear anxious or depressed, she does not appear agitated. On 02/08/2023, patient was seen and examined and felt to be in stable condition for discharge home. I had a discussion with her concerning narcotic usage as she had a past history of narcotic abuse, she maintained that she would not abuse narcotics as she has not been using narcotics chronically. Weight / BMI Weight Weight: 98.656 kg Body Mass Index (BMI) 38.5 ABG / Lab / Microbiology Data Result Diagrams: 02/06/23 06:05 02/06/23 06:05 D/C Instructions Discharge Diet: No restrictions Weight Bearing Status: Full weight bearing Meaningful Use Info Meaningful Use Diagnoses (Choose all that apply): None applicable Discharge Plan Admission Admit Date/Time: 02/05/23 18:31 Primary Reason for Your Visit: pancreatitis Attending Provider: Meño Pepper Primary Care Provider: Rin Rivera [employer]I[facility] Consulting Providers: Desi Basilio Discharge Orders/Prescriptions Prescriptions: New oxycodone 5 mg tablet 5 mg PO Q6H PRN (Reason: pain) 2 Days Qty: 12 0RF Rx Instructions: 5-10 mg every six hours as needed for abdominal pain Continued furosemide 40 MG tablet 40 mg PO DAILY potassium chloride 10 MEQ tablet 20 meq PO TID valacyclovir [Valtrex] 500 MG tablet 500 mg PO DAILY melatonin 3 MG capsule 10 mg PO QHS magnesium oxide 200 MG tablet 400 mg PO DAILY Linzess 290 mcg capsule 290 mcg PO DAILY Label Comments: take 1 capsule by mouth once daily clonidine HCl 0.2 mg Tablet 0.2 mg PO QHS methenamine hippurate [Hiprex] 1 gram Tablet 1 g PO QHS ascorbic acid (vitamin C) [Vitamin C] 1,000 mg Tablet 1 g PO DAILY clonazepam [Klonopin] 0.5 mg Tablet 0.5 mg PO BID PRN (Reason: Seizures) venlafaxine [Effexor XR] 150 mg Capsule,Extended Release 24hr 225 mg PO QHS metoprolol tartrate 25 mg Tablet 25 mg PO BID nitrofurantoin monohyd/m-cryst [Macrobid] 100 mg Capsule 100 mg PO DAILY PRN PRN (Reason: INTERCOURSE) Xarelto 10 mg tablet 10 mg PO DAILY ropinirole 0.5 mg Tablet 0.5 mg PO BID lactulose 10 gram/15 mL Solution 15 ml PO BID PRN PRN (Reason: Constipation) cholecalciferol (vitamin D3) 1,250 mcg (50,000 unit) capsule 50,000 unit PO FR Label Comments: TAKE 1 CAPSULE BY MOUTH EVERY WEEK lacosamide [Vimpat] 100 mg Tablet 100 mg PO DAILY lacosamide [Vimpat] 200 mg Tablet 200 mg PO QHS Referrals / Follow Up: Rin Rivera [employer] ASSOCIATE, [facility] [Primary Care Provider] - 02/23/23 10:30 am (The appointment is set-up with Dr. Lara. ) Disposition Disposition (needs filled in before D/C Order can be placed): Home, Self Care Charges/Coding Visit Charges Inpatient E&M: 02658 Disch Hosp >30min
--- NOTE | 2023-02-08 10:25 | CASEMGMT ---
KAY CM into pt room, pt ready for dc. No follow up noted for . Pt is aware that appt was not made. Pt states she can make appt on own. Pt denies further needs.
--- NOTE | 2023-02-08 10:33 | PHA.DC.MR ---
Pharmacy Service has performed discharge medication reconciliation for this patient. The patient's discharge medication list was reviewed for discrepancies and discrepancies were resolved. Home Medications furosemide 40 mg tablet 40 mg PO DAILY water pill 09/10/16 potassium chloride 10 mEq tablet,extended release(part/cryst) 20 meq PO TID supplment 09/10/16 valacyclovir 500 mg tablet (Valtrex) 500 mg PO DAILY herpes 10/25/18 melatonin 3 mg capsule 10 mg PO QHS sleep 05/26/19 magnesium oxide 400 mg PO DAILY supplement 10/09/20 linaclotide 290 mcg capsule (Linzess) 290 mcg PO DAILY bowels 05/28/21 ascorbic acid (vitamin C) 1,000 mg tablet (Vitamin C) 1 g PO DAILY supplement 12/03/21 clonazepam 0.5 mg tablet (Klonopin) 0.5 mg PO BID PRN Seizures 12/03/21 clonidine HCl 0.2 mg tablet 0.2 mg PO QHS anxiety 12/03/21 methenamine hippurate 1 gram tablet (Hiprex) 1 g PO QHS bladder infections 12/03/21 metoprolol tartrate 25 mg tablet 25 mg PO BID heart rate 12/03/21 nitrofurantoin monohydrate/macrocrystals 100 mg capsule (Macrobid) 100 mg PO DAILY PRN PRN INTERCOURSE 12/03/21 venlafaxine 150 mg capsule,extended release 24 hr (Effexor XR) 225 mg PO QHS mood 12/03/21 rivaroxaban 10 mg tablet (Xarelto) 10 mg PO DAILY blood thinner 07/07/22 cholecalciferol (vitamin D3) 1,250 mcg (50,000 unit) capsule 50,000 unit PO FR supplement 02/05/23 lacosamide 100 mg tablet (Vimpat) 100 mg PO DAILY seizures 02/05/23 lacosamide 200 mg tablet (Vimpat) 200 mg PO QHS seizures 02/05/23 lactulose 10 gram/15 mL oral solution 15 ml PO BID PRN PRN Constipation 02/05/23 ropinirole 0.5 mg tablet 0.5 mg PO BID restless legs 02/05/23 oxycodone 5 mg tablet 5 mg PO Q6H PRN pain 2 days #12 tabs 02/08/23
[2023-02-08] MEDS: Lactulose 20 GM/30 ML UDC 30 GM PO (10:45)
== END 2023-02-08 12:19 | disposition home or self-care (01) | DRG 439 ==
LOC: ED 17:38 → MS3 18:51
PROVIDERS: Admitting Provider Student in an Organized Health Care Education/Training Program; Emergency Provider Emergency Medicine; PCP Nurse Practitioner Family; Visit Provider Internal Medicine
DX: K85.90 Acute pancreatitis without necrosis or infection, unspecified (principal); D68.2 Hereditary deficiency of other clotting factors; G40.909 Epilepsy, unspecified, not intractable, without status epilepticus; E78.5 Hyperlipidemia, unspecified; I10 Essential (primary) hypertension; F17.220 Nicotine dependence, chewing tobacco, uncomplicated; F32.A Depression, unspecified; Z86.718 Personal history of other venous thrombosis and embolism; Z86.73 Personal history of transient ischemic attack (TIA), and cerebral infarction without residual deficits; Z86.711 Personal history of pulmonary embolism
CPT/HCPCS: 36415; 74177; 80053; 83690; 85025; 85610; 85730; 94668; 99252; 99285; J7030; Q9967; A4216; G0463; J2405

== ENCOUNTER 2023-05-07 03:29 | Emergency (ER) | payer MEDICARE, SELFPAY ==
[2023-05-07 03:31] VITALS: BP 136/62; PULSE 105; RESP 16; TEMP 36.6; O2SAT 100; BMI 38.5
--- NOTE | 2023-05-07 03:39 | EDS_ITS ---
HPI HPI - GI History of Present Illness Chief Complaint: Abd Pain Narrative Narrative: 47-year-old female presenting with epigastric pain, diarrhea which she describes as frothy. She states he has a history of pancreatitis and knows that she has history of pseudocysts. She states that previously she was told that there were small pseudocyst but they had increased in size of 3.5 cm and she states that if they get larger than 6 cm they are going to have to surgically drain these. She states she had all this work-up done at hospital regarding the pseudocyst. She states has been to several other hospitals recently as well. She was deferred to several times. She states she came here because she did not wish to drive at night. Patient also states that she was supposed to have a consult with a GI specialist however she was admitted to a psychiatric facility for 7 days and missed his appointment. She does not recall any of the GI specialist or surgeons that she spoke to main campus. [facility] Medical History Anxiety Chronic constipation Chronic diastolic HF (heart failure) Depression Depression DVT (deep venous thrombosis) Epilepsy Factor V Leiden mutation Former smoker GERD (gastroesophageal reflux disease) History of CVA (cerebrovascular accident) History of pancreatitis History of pulmonary embolus (PE) Hyperlipidemia Hypertension Pancreatitis Presence of IVC filter Pulmonary embolism Seizure disorder Stroke/cerebrovascular accident Substance abuse Vitamin D deficiency Home Medications furosemide 40 mg tablet 40 mg PO DAILY water pill 09/10/16 [History Last Taken 02/05/23] potassium chloride 10 mEq tablet,extended release(part/cryst) 20 meq PO TID supplment 09/10/16 [History Last Taken 02/05/23] valacyclovir 500 mg tablet (Valtrex) 500 mg PO DAILY herpes 10/25/18 [History Last Taken 02/05/23] melatonin 3 mg capsule 10 mg PO QHS sleep 05/26/19 [History Last Taken 09/08/19] magnesium oxide 600 mg PO DAILY supplement 10/09/20 [History Last Taken Unknown] linaclotide 290 mcg capsule (Linzess) 290 mcg PO DAILY bowels 05/28/21 [History Last Taken 02/05/23] ascorbic acid (vitamin C) 1,000 mg tablet (Vitamin C) 1 g PO DAILY supplement 12/03/21 [History Last Taken 02/05/23] clonazepam 0.5 mg tablet (Klonopin) 0.5 mg PO BID PRN Seizures 12/03/21 [History Last Taken Unknown] clonidine HCl 0.2 mg tablet 0.2 mg PO QHS anxiety 12/03/21 [History Last Taken 02/04/23] methenamine hippurate 1 gram tablet (Hiprex) 1 g PO QHS bladder infections 12/03/21 [History Last Taken 02/04/23] metoprolol tartrate 25 mg tablet 25 mg PO DAILY heart rate 12/03/21 [History Last Taken 02/05/23] venlafaxine 150 mg capsule,extended release 24 hr (Effexor XR) 225 mg PO QHS mood 12/03/21 [History Last Taken 02/04/23] rivaroxaban 10 mg tablet (Xarelto) 10 mg PO DAILY blood thinner 07/07/22 [History Last Taken 02/05/23] cholecalciferol (vitamin D3) 1,250 mcg (50,000 unit) capsule 50,000 unit PO FR supplement 02/05/23 [History Last Taken 02/04/23] lacosamide 100 mg tablet (Vimpat) 100 mg PO DAILY seizures 02/05/23 [History Last Taken 02/05/23] lacosamide 200 mg tablet (Vimpat) 200 mg PO QHS seizures 02/05/23 [History Last Taken 02/04/23] lactulose 10 gram/15 mL oral solution 15 ml PO BID PRN PRN Constipation 02/05/23 [History Last Taken Unknown] ropinirole 0.5 mg tablet 0.5 mg PO BID restless legs 02/05/23 [History Last Taken 02/05/23] ljvdnqyqoy-wyctwtdxtzonk-zohkkkbz 50 mg-325 mg-40 mg capsule 1 cap PO Q6H PRN pain 02/23/23 [History Last Taken Unknown] omeprazole 40 mg capsule,delayed release 40 mg PO BID 02/23/23 [History Last Taken Unknown] ondansetron 4 mg disintegrating tablet 4 mg PO Q6H 02/23/23 [History Last Taken Unknown] fenofibrate nanocrystallized 145 mg tablet 145 mg PO QHS 05/07/23 [History Last Taken Unknown] leycei-agjdqztr-zrvvfaw 12,000-38,000-60,000 unit capsule,delayed rel (Creon) 3 cap PO TID 05/07/23 [History Last Taken Unknown] nitrofurantoin monohydrate/macrocrystals 100 mg capsule (Macrobid) 100 mg PO DAILY PRN after sex 05/07/23 [History Last Taken Unknown] promethazine 25 mg tablet 25 mg PO Q12H PRN nausea and vomiting 05/07/23 [History Last Taken Unknown] Allergy/AdvReac Type Severity Reaction Status Date / Time gabapentin [From Neurontin] Allergy Rash Verified 05/07/23 03:30 morphine Allergy HYPOTENSION Verified 05/07/23 03:30 Penicillins Allergy Rash Verified 05/07/23 03:30 Sulfa (Sulfonamide Allergy Rash Verified 05/07/23 03:30 Antibiotics) Family History Mother Hypertension Hyperlipidemia Father Heart disease Surgical History H/O: History of appendectomy History of embolic filter insertion History of hysterectomy Hx of cholecystectomy Social History Smoking Status: Current every day smoker tobacco type: e-cigarettes and smokeless tobacco alcohol intake: former substance use type: marijuana ROS ROS ED Constitutional Constitutional ED: Denies chills, fever(s) or sweats Eyes Eyes: Denies blurry vision or change in vision ENT ENT ED: Denies ear pain or sore throat Cardiovascular Cardiovascular: Denies chest pain, palpitations or racing heartbeat Respiratory/Chest Respiratory/Chest: Denies cough, dyspnea or sputum Gastrointestinal Gastrointestinal: Reports abdominal pain and diarrhea; Denies constipation, nausea or vomiting Genitourinary Genitourinary ED: Denies dysuria, hematuria or urinary frequency Musculoskeletal Musculoskeletal: Denies arthralgias, myalgias or neck pain Integumentary Denies abscess, Abrasions or rash Neurologic Neurologic: Denies headache(s), paresthesias or weakness Psychiatric Psychiatric: Denies anxiety, depression, suicidal ideation or suicidal thoughts Endocrine Endocrinology: Denies polydipsia or polyuria EXAM Physical Exam Const Vital Signs: 05/07/23 03:31 Temperature 97.9 F Temperature Source Temporal Pulse Rate 105 H Respiratory Rate 16 Blood Pressure 136/62 H Blood Pressure Mean 86 Pulse Ox 100 Positive well nourished General Appearance ED: NAD; Negative for pallor HEENT Reports moist mucous membranes normocephalic and atraumatic Eyes PERRL and EOMs intact bilaterally General Eye ED: Negative for pale conjunctiva or scleral icterus Resp normal respiratory effort and clear to auscultation bilaterally Auscultation: Negative for rales, rhonchi or wheezes Cardio regular rate and regular rhythm GI Palpation: tender epigastric Neuro CN's II-XII intact bilaterally and moves all extremities Sensorium / Orientation: alert Motor Exam: strength 5/5 throughout Psych mental status grossly normal and thought process normal Skin General Skin Exam: Negative for jaundice or pallor MDM MDM MDM Narrative Medical decision making narrative: Patient presented with epigastric pain. She has history of pancreatitis, EtOH abuse, pancreatic pseudocyst. Differential includes pancreatitis, gastritis, worsening pancreatic pseudocyst, elevated liver enzymes, dehydration, anemia, electrolyte abnormalities, EtOH abuse, drug abuse. Patient calm with normal vital signs. Some delay in getting lab work and treating of the patient as she was unable to sit still all time to obtain IV access. We did eventually get this blood work and her CBC shows no leukocytosis. Hemoglobin stable 11.4. Pl atelets normal at 362. LFTs unremarkable except ALT of 69. Renal function electrolytes within normal limits. Lipase 49. Urine drug screen positive for cannabinoids. EtOH negative. Patient medicated with IM fentanyl given her allergy to morphine. At this point with her lab work looking normal I do not believe she needs a CT scan. She was counseled to follow-up with as this is where her specialists are. She states she has an appointment upcoming. She will be discharged home in stable condition. Impression: 1. Abdominal pain 2. History of pancreatitis 3. History of pancreatic pseudocyst Lab Data Labs: Laboratory Results - last 24 hr 05/07/23 05/07/23 03:55 05:15 WBC 5.9 RBC 3.77 L Hgb 11.4 L Hct 35.6 L MCV 94.4 MCH 30.2 MCHC 32.0 RDW Std Deviation 43.7 RDW Coeff of Megan 12.6 Plt Count 362 MPV 8.6 Immature Gran % (Auto) 0.300 Neut % (Auto) 58.9 Lymph % (Auto) 26.3 Mineral % (Auto) 9.9 Eos % (Auto) 3.9 Baso % (Auto) 0.7 Absolute Neuts (auto) 3.4 Absolute Lymphs (auto) 1.54 Nucleated RBC % 0 Sodium 141 Potassium 3.8 Chloride 103 Carbon Dioxide 29.0 Anion Gap 9 BUN 12 Creatinine 1.00 Estim Creat Clear Calc 56.91 Est GFR (MDRD) Af Amer 76 Est GFR (MDRD) Non-Af 63 BUN/Creatinine Ratio 12.0 Glucose 142 H Calcium 9.6 Total Bilirubin 0.30 AST 35 ALT 69 H Alkaline Phosphatase 70 Total Protein 7.0 Albumin 3.6 Globulin 3.4 Albumin/Globulin Ratio 1.1 Lipase 49 Urine Opiates Screen NEGATIVE Urine Methadone Screen NEGATIVE Ur Barbiturates Screen NEGATIVE Ur Phencyclidine Scrn NEGATIVE Ur Amphetamines Screen NEGATIVE MDMA (Ecstasy) Screen NEGATIVE U Benzodiazepines Scrn NEGATIVE Urine Cocaine Screen NEGATIVE U Cannabinoids Screen POSITIVE H Ur Drug Screen Comment Ethyl Alcohol < 3.0 Discharge Plan Triage Chief Complaint: Abd Pain ED Provider: Dada Sherwood Dx/Rx/DC Orders Instructions: ED Abdominal Pain Unkn Cause Fem Prescriptions: No Action ondansetron 4 mg tablet,disintegrating 4 mg PO Q6H omeprazole 40 mg capsule,delayed release(DR/EC) 40 mg PO BID [id number]-vubrchvjaalfr-adhh 50-325-40 mg capsule 1 cap PO Q6H PRN (Reason: pain) furosemide 40 MG tablet 40 mg PO DAILY potassium chloride 10 MEQ tablet 20 meq PO TID valacyclovir [Valtrex] 500 MG tablet 500 mg PO DAILY melatonin 3 MG capsule 10 mg PO QHS magnesium oxide 200 MG tablet 600 mg PO DAILY Linzess 290 mcg capsule 290 mcg PO DAILY Patient Comments: take 1 capsule by mouth once daily clonidine HCl 0.2 mg Tablet 0.2 mg PO QHS methenamine hippurate [Hiprex] 1 gram Tablet 1 g PO QHS ascorbic acid (vitamin C) [Vitamin C] 1,000 mg Tablet 1 g PO DAILY clonazepam [Klonopin] 0.5 mg Tablet 0.5 mg PO BID PRN (Reason: Seizures) venlafaxine [Effexor XR] 150 mg Capsule,Extended Release 24hr 225 mg PO QHS metoprolol tartrate 25 mg Tablet 25 mg PO DAILY Xarelto 10 mg tablet 10 mg PO DAILY ropinirole 0.5 mg Tablet 0.5 mg PO BID lactulose 10 gram/15 mL Solution 15 ml PO BID PRN PRN (Reason: Constipation) cholecalciferol (vitamin D3) 1,250 mcg (50,000 unit) capsule 50,000 unit PO FR Patient Comments: TAKE 1 CAPSULE BY MOUTH EVERY WEEK lacosamide [Vimpat] 100 mg Tablet 100 mg PO DAILY lacosamide [Vimpat] 200 mg Tablet 200 mg PO QHS Creon 12,000-38,000 -60,000 unit capsule,delayed release(DR/EC) 3 cap PO TID Rx Instructions: administer with meals and/or snacks fenofibrate nanocrystallized 145 mg tablet 145 mg PO QHS nitrofurantoin monohyd/m-cryst [Macrobid] 100 mg capsule 100 mg PO DAILY PRN (Reason: after sex) promethazine 25 mg tablet 25 mg PO Q12H PRN (Reason: nausea and vomiting) Patient Comments: TAKE 1 TABLET BY MOUTH TWICE DAILY Primary Care Provider: Rin Rivera NP Referrals: Rin Rivera NP, [facility] [Primary Care Provider] - Disposition Disposition: Home, Self Care
[2023-05-07 04:15] LABS: Amphetamine Urine VISTA NEGATIVE (<1000 ng/mL); Barbiturate Urine VISTA NEGATIVE (< 200 ng/mL); Benzodiazepine Urine VISTA NEGATIVE (< 200 ng/mL); Cocaine Urine VISTA NEGATIVE (< 300 ng/mL); Ecstacy Urine VISTA NEGATIVE (< 500 ng/mL); Methadone Urine VISTA NEGATIVE (< 300 ng/mL); PCP Urine VISTA NEGATIVE (< 25 ng/mL); THC Urine VISTA POSITIVE (< 50 ng/mL); Vista UDS pH Range 6
[2023-05-07 05:25] LABS: Absolute Lymphocyte Count 1.54 X10^3/uL (0.83-4.51); Absolute Neutrophil Count 3.4 X10^3/uL (2.0-7.7); Basophil# 0.04 X10^3/uL; Basophil% 0.7 % (0-1); Eosinophil# 0.23 X10^3/uL; Eosinophils% 3.9 % (0-5); Hematocrit 35.6 % (37-47); Hemoglobin 11.4 g/dL (12.0-15.0); Lymphocyte # 1.54 X10^3/ul (0.83-4.51); Lymphocyte % 26.3 % (19-41); Mean Corpuscular Hgb 30.2 pg (27.0-32.0); Mean Corpuscular Volume 94.4 fL (81-99); Mean Platelet Vol. 8.6 fl (6.2-12.0); Monocyte# 0.58 X10^3/uL; Monocyte% 9.9 % (0-10); NRBC Flagged by Analyzer 0 % (0-5); Neutrophil # 3.44 X10^3/uL (2.7-7.7); Neutrophil % 58.9 % (47-70); Platelet Count 362 K/mm3 (150-450); RBC Distribution Width CV 12.6 % (11.6-14.6); RBC Distribution Width SD 43.7 fl (35.1-43.9); Red Blood Count 3.77 M/mm3 (4.2-5.4); White Blood Count 5.9 K/mm3 (4.4-11.0)
[2023-05-07 05:42] LABS: ALB/GLOB Ratio 1.1 RATIO (0.9-2.4); AST(SGOT) 35 U/L (15-37); Alanine Aminotransfer ALT/SGPT 69 U/L (13-56); Albumin, Serum 3.6 g/dL (3.2-5.0); Alkaline Phosphatase 70 U/L (45-117); Anion Gap 9 (5-15); BUN 12 mg/dL (7-18); Calcium,Total 9.6 mg/dL (8.5-10.1); Chloride 103 mmol/L (98-107); EST Glomerular Filtration Rate 63 mL/min (>60); Est Glom Filt Rate - Afr Amer 76 mL/min (>60); Estimated Creatinine Clearance 56.91 ml/min; Globulin 3.4 g/dL (2.2-4.2); Glucose 142 mg/dL (74-106); Lipase 49 U/L (13-75); Potassium 3.8 mmol/L (3.5-5.1); Sodium Level 141 mmol/L (136-145)
[2023-05-07 05:52] LABS: Alcohol, Blood (Medical)-Serum < 3.0 mg/dL
[2023-05-07] MEDS: Ondansetron ODT 4 MG Tablet PO (07:15)
[2023-05-07] MEDS: fentaNYL 100 MCG/2 ML Ampul 50 MCG IM (07:15)
== END 2023-05-07 07:30 | disposition home or self-care (01) ==
PROVIDERS: Emergency Provider Student in an Organized Health Care Education/Training Program; PCP Nurse Practitioner Family; Visit Provider Student in an Organized Health Care Education/Training Program
DX: R10.9 Unspecified abdominal pain (principal); I11.0 Hypertensive heart disease with heart failure; I50.32 Chronic diastolic (congestive) heart failure; G40.909 Epilepsy, unspecified, not intractable, without status epilepticus; E78.5 Hyperlipidemia, unspecified; Z86.73 Personal history of transient ischemic attack (TIA), and cerebral infarction without residual deficits; F41.9 Anxiety disorder, unspecified; F32.A Depression, unspecified; Z79.01 Long term (current) use of anticoagulants; K59.09 Other constipation; Z86.711 Personal history of pulmonary embolism; Z86.718 Personal history of other venous thrombosis and embolism; K21.9 Gastro-esophageal reflux disease without esophagitis; Z90.49 Acquired absence of other specified parts of digestive tract; Z90.710 Acquired absence of both cervix and uterus; F17.290 Nicotine dependence, other tobacco product, uncomplicated; Z87.19 Personal history of other diseases of the digestive system
CPT/HCPCS: 36415; 80053; 80307; 82077; 83690; 85025; 96372; 99283

== ENCOUNTER 2023-06-23 20:42 | Observation (INO) | payer MEDICARE, SELFPAY ==
[2023-06-23 20:43] VITALS: BP 168/117; PULSE 132; RESP 20; TEMP 36.6; O2SAT 98
--- NOTE | 2023-06-23 21:16 | ED.VIS.GI ---
HPI HPI - GI History of Present Illness Chief Complaint: Abd Pain Detail of Chief Complaint: Abdominal pain Informant: patient Narrative Narrative: Patient presents with abdominal pain since last evening. Patient states that she has history of chronic pancreatitis. Patient has been having flareups about every 2 weeks. She has had multiple admissions in the last several months including admissions to [facility] as well as [facility]. Patient most recently discharged from [facility]. Patient is to follow-up with GI at on the . Patient also to see pain management there to potentially assess for infusions and celiac plexus block. Patient also to have MRCP on the of this month. Patient complains of upper abdomen pain radiating to her back. She has had nausea but no vomiting. This pain is typical of her flareups. Patient has pancreatic cysts but currently they are just monitoring those [facility] Medical History Anxiety Chronic constipation Chronic diastolic HF (heart failure) Depression Depression DVT (deep venous thrombosis) Epilepsy Factor V Leiden mutation Former smoker GERD (gastroesophageal reflux disease) History of CVA (cerebrovascular accident) History of pancreatitis History of pulmonary embolus (PE) Hyperlipidemia Hypertension Pancreatitis Presence of IVC filter Pulmonary embolism Seizure disorder Stroke/cerebrovascular accident Substance abuse Vitamin D deficiency Home Medications furosemide 40 mg tablet 40 mg PO DAILY water pill 09/10/16 [History Last Taken 02/05/23] potassium chloride 10 mEq tablet,extended release(part/cryst) 20 meq PO TID supplment 09/10/16 [History Last Taken 02/05/23] valacyclovir 500 mg tablet (Valtrex) 500 mg PO DAILY herpes 10/25/18 [History Last Taken 02/05/23] melatonin 3 mg capsule 10 mg PO QHS sleep 05/26/19 [History Last Taken 09/08/19] magnesium oxide 600 mg PO DAILY supplement 10/09/20 [History Last Taken Unknown] linaclotide 290 mcg capsule (Linzess) 290 mcg PO DAILY bowels 05/28/21 [History Last Taken 02/05/23] ascorbic acid (vitamin C) 1,000 mg tablet (Vitamin C) 1 g PO DAILY supplement 12/03/21 [History Last Taken 02/05/23] clonazepam 0.5 mg tablet (Klonopin) 0.5 mg PO BID PRN Seizures 12/03/21 [History Last Taken Unknown] clonidine HCl 0.2 mg tablet 0.2 mg PO QHS anxiety 12/03/21 [History Last Taken 02/04/23] methenamine hippurate 1 gram tablet (Hiprex) 1 g PO QHS bladder infections 12/03/21 [History Last Taken 02/04/23] metoprolol tartrate 25 mg tablet 25 mg PO DAILY heart rate 12/03/21 [History Last Taken 02/05/23] venlafaxine 150 mg capsule,extended release 24 hr (Effexor XR) 225 mg PO QHS mood 12/03/21 [History Last Taken 02/04/23] rivaroxaban 10 mg tablet (Xarelto) 10 mg PO DAILY blood thinner 07/07/22 [History Last Taken 02/05/23] cholecalciferol (vitamin D3) 1,250 mcg (50,000 unit) capsule 50,000 unit PO FR supplement 02/05/23 [History Last Taken 02/04/23] lacosamide 100 mg tablet (Vimpat) 100 mg PO DAILY seizures 02/05/23 [History Last Taken 02/05/23] lacosamide 200 mg tablet (Vimpat) 200 mg PO QHS seizures 02/05/23 [History Last Taken 02/04/23] lactulose 10 gram/15 mL oral solution 15 ml PO BID PRN PRN Constipation 02/05/23 [History Last Taken Unknown] ropinirole 0.5 mg tablet 0.5 mg PO BID restless legs 02/05/23 [History Last Taken 02/05/23] dauqesndbx-jygreazxpqlhy-hgerwysm 50 mg-325 mg-40 mg capsule 1 cap PO Q6H PRN pain 02/23/23 [History Last Taken Unknown] omeprazole 40 mg capsule,delayed release 40 mg PO BID 02/23/23 [History Last Taken Unknown] ondansetron 4 mg disintegrating tablet 4 mg PO Q6H 02/23/23 [History Last Taken Unknown] fenofibrate nanocrystallized 145 mg tablet 145 mg PO QHS 05/07/23 [History Last Taken Unknown] jmswhj-viiowick-ehengoa 12,000-38,000-60,000 unit capsule,delayed rel (Creon) 3 cap PO TID 05/07/23 [History Last Taken Unknown] nitrofurantoin monohydrate/macrocrystals 100 mg capsule (Macrobid) 100 mg PO DAILY PRN after sex 05/07/23 [History Last Taken Unknown] promethazine 25 mg tablet 25 mg PO Q12H PRN nausea and vomiting 05/07/23 [History Last Taken Unknown] aripiprazole 10 mg tablet 10 mg PO DAILY 06/23/23 [History Last Taken Unknown] benztropine 0.5 mg tablet 0.5 mg PO BID 06/23/23 [History Last Taken Unknown] divalproex 250 mg tablet,delayed release 250 mg PO Q12H 06/23/23 [History Last Taken Unknown] Allergy/AdvReac Type Severity Reaction Status Date / Time gabapentin [From Neurontin] Allergy Rash Verified 06/23/23 20:45 morphine Allergy HYPOTENSION Verified 06/23/23 20:45 Penicillins Allergy Rash Verified 06/23/23 20:45 Sulfa (Sulfonamide Allergy Rash Verified 06/23/23 20:45 Antibiotics) Family History Mother Hypertension Hyperlipidemia Father Heart disease Surgical History H/O: History of appendectomy History of embolic filter insertion History of hysterectomy Hx of cholecystectomy Social History (Updated 06/23/23 @ 23:[address] Kareen Sanchez MD) household members: none Smoking Status: Current every day smoker tobacco type: e-cigarettes and smokeless tobacco alcohol intake: former substance use type: marijuana ROS ROS ED Review of Systems ROS Unobtainable: other Constitutional Constitutional ED: Reports lethargy; Denies chills, fever(s), sweats or weight loss Eyes Eyes: Denies blurry vision, change in vision or diplopia ENT ENT ED: Denies rhinorrhea or sore throat Cardiovascular Cardiovascular: Denies chest pain, orthopnea or racing heartbeat Respiratory/Chest Respiratory/Chest: Denies cough, dyspnea, dyspnea on exertion, orthopnea or sputum Gastrointestinal Gastrointestinal: Reports abdominal pain and nausea; Denies diarrhea or vomiting Genitourinary Genitourinary ED: Denies dysuria, hematuria or urinary frequency Musculoskeletal Musculoskeletal: Denies arthralgias, back pain, myalgias or neck pain Integumentary Denies abscess, Abrasions or rash Neurologic Neurologic: Denies headache(s) or weakness Psychiatric Psychiatric: Denies anxiety, depression or suicidal thoughts Endocrine Endocrinology: Denies polydipsia, polyphagia or polyuria Hematologic/Lymphatic Hematologic/Lymphatic: Denies easy bleeding, easy bruising or lymphadenopathy Allergic/Immunologic Allergic/Immunologic ED: Denies mouth swelling, tongue swelling or urticaria EXAM Physical Exam Const Vital Signs: 06/23/23 20:43 Temperature 97.9 F Temperature Source Temporal Pulse Rate 132 H Respiratory Rate 20 H Blood Pressure 168/117 H Blood Pressure Mean 134 Pulse Ox 98 Oxygen Delivery Method Room Air Positive well nourished and well developed General Appearance ED: well developed and NAD HEENT Reports TM's clear and moist mucous membranes normocephalic and atraumatic; Negative for trauma or tenderness Tympanic Membrane ED: Yes TM's clear Eyes PERRL and EOMs intact bilaterally General Eye ED: Negative for pale conjunctiva or scleral icterus Neck no lymphadenopathy, supple and no JVD General: Negative for tenderness Chest Wall inspection of chest normal and palpation of chest normal Chest: Negative for tenderness Resp normal respiratory effort and clear to auscultation bilaterally Effort and Inspection: Negative for respiratory distress or pain with movement Auscultation: Negative for rhonchi, wheezes or diminished lung sounds Cardio regular rate, regular rhythm, S1 normal heart sound, S2 normal heart sound and no murmurs Peripheral Pulses: pulses 2+ throughout GI normal to inspection, nondistended, normoactive bowel sounds, soft to palpation, non-distended and no masses GI Narrative: Tenderness palpation over the epigastric region with guarding. There is no rebound, rigidity, or pineal signs. No mass palpated. Back/Spine no CVA tenderness and no thoracic nor lumbar tenderness Extremity normal to inspection General Extremety ED: Negative for edema General Extremity: Negative for edema Neuro oriented x3, CN's II-XII intact bilaterally, no sensory deficits noted and gait normal Sensorium / Orientation: awake, alert, oriented to person, oriented to place and oriented to time Motor Exam: strength 5/5 throughout and strength abnormal Psych mental status grossly normal Skin no rashes or lesions noted and no wounds MDM MDM MDM Narrative Medical decision making narrative: Patient presents with abdominal pain typical of her pancreatitis. In the process of getting significant work-up at [facility] and seeing specialist including GI and pain management. IV line established. CBC with differential obtained showed a white count 12.8 with hemoglobin of 13 and platelet count of 392. Chemistries unremarkable. AST slightly elevated 40 and ALT was 66. Lipase was slightly elevated 89. Urinalysis without signs of infection. Patient was medicated with Dilaudid and Zofran. She was a difficult IV stick therefore we had to place a left EJ. Patient states the pain medicine took the edge off but still having significant pain. We will discussed with hospitalist to evaluate for admission. I did talk to her about transfer to [facility] but she would prefer to remain here as she did not feel they were going to do anything significantly different until she has her follow-up appointments. Patient clinically stable. I do not feel any imaging is indicated as she has had multiple CT scans in the past and most recently during her admission at [facility]. Lab Data Attestation: I reviewed the patient's lab results. Labs: Laboratory Results - last 24 hr 06/23/23 06/23/23 21:30 22:25 WBC 12.8 H RBC 4.54 Hgb 13.3 Hct 42.5 MCV 93.6 MCH 29.3 MCHC 31.3 L RDW Std Deviation 45.8 H RDW Coeff of Megan 13.5 Plt Count 392 MPV 8.5 Immature Gran % (Auto) 0.500 Neut % (Auto) 72.5 H Lymph % (Auto) 18.5 L [place] % (Auto) 6.3 Eos % (Auto) 1.7 Baso % (Auto) 0.5 Absolute Neuts (auto) 9.3 H Absolute Lymphs (auto) 2.36 Nucleated RBC % 0 Sodium 135 L Potassium 3.7 Chloride 101 Carbon Dioxide 26.0 Anion Gap 8 BUN 17 Creatinine 0.87 Estim Creat Clear Calc 65.42 Est GFR (MDRD) Af Amer 89 Est GFR (MDRD) Non-Af 73 BUN/Creatinine Ratio 19.5 Glucose 131 H Lactic Acid 2.3 H* Calcium 9.2 Total Bilirubin 0.20 AST 40 H ALT 66 H Alkaline Phosphatase 93 Total Protein 7.5 Albumin 3.5 Globulin 4.0 Albumin/Globulin Ratio 0.9 Lipase 89 H Urine Color Yellow Urine Clarity Clear Urine pH 7.0 Ur Specific [place] 1.010 Urine Protein Negative Urine Glucose (UA) Normal Urine Ketones Negative Urine Occult Blood Negative Urine Nitrite Negative Urine Bilirubin Negative Urine Urobilinogen Normal Ur Leukocyte Esterase Negative Urine RBC 0 SEEN Urine WBC 0-5 SEEN Ur Squamous Epith Cells 10-25 SEEN Urine Bacteria 0 SEEN Urine Mucus 0 SEEN Discharge Plan Dx/Rx/DC Orders Clinical Impression: Leukocytosis, Pancreatitis, Abdominal pain Disposition Disposition: Acute Care Hospital [facility]
[2023-06-23 21:37] VITALS: BMI 37.0
[2023-06-23 21:43] LABS: Bacteria 0 SEEN /hpf (None Seen); Mucous, Urine 0 SEEN /hpf (<or=2+); Red Blood Cells-Urine 0 SEEN /hpf (0-5)
[2023-06-23 21:44] LABS: Color, Urine Yellow (Yellow); Glucose, Dipstick Normal (Normal); Ketone-Dipstick Negative (Negative); Leukocyte Esterase-Dipstick Negative /ul (Negative); Nitrite-Dipstick Negative (Negative); Occult Blood-Urine Negative /ul (Negative); Protein-Dipstick Negative (Negative); Urine Bilirubin Dipstick Negative (Negative); Urine Clarity Clear (Clear); Urine Urobilinogen Normal (Normal)
[2023-06-23 21:57] LABS: Squamous Epithelial Cells - UA 10-25 SEEN /hpf (5-10); White Blood Cells 0-5 SEEN /hpf (0-5)
[2023-06-23] MEDS: Ondansetron 4 MG/2 ML Vial IV (22:29)
[2023-06-23] MEDS: HYDROmorphone 1 MG/ML Syringe IV ×2 (22:29→23:28)
[2023-06-23 22:45] LABS: Absolute Lymphocyte Count 2.36 X10^3/uL (0.83-4.51); Absolute Neutrophil Count 9.3 X10^3/uL (2.0-7.7); Basophil# 0.07 X10^3/uL; Basophil% 0.5 % (0-1); Eosinophil# 0.22 X10^3/uL; Eosinophils% 1.7 % (0-5); Hematocrit 42.5 % (37-47); Hemoglobin 13.3 g/dL (12.0-15.0); Lymphocyte # 2.36 X10^3/ul (0.83-4.51); Lymphocyte % 18.5 % (19-41); Mean Corp Hgb Conc 31.3 g/dL (32-36); Mean Corpuscular Hgb 29.3 pg (27.0-32.0); Mean Corpuscular Volume 93.6 fL (81-99); Mean Platelet Vol. 8.5 fl (6.2-12.0); Monocyte# 0.81 X10^3/uL; Monocyte% 6.3 % (0-10); NRBC Flagged by Analyzer 0 % (0-5); Neutrophil # 9.25 X10^3/uL (2.7-7.7); Neutrophil % 72.5 % (47-70); Platelet Count 392 K/mm3 (150-450); RBC Distribution Width CV 13.5 % (11.6-14.6); RBC Distribution Width SD 45.8 fl (35.1-43.9); Red Blood Count 4.54 M/mm3 (4.2-5.4); White Blood Count 12.8 K/mm3 (4.4-11.0)
[2023-06-23 23:05] LABS: ALB/GLOB Ratio 0.9 RATIO (0.9-2.4); AST(SGOT) 40 U/L (15-37); Alanine Aminotransfer ALT/SGPT 66 U/L (13-56); Albumin, Serum 3.5 g/dL (3.2-5.0); Alkaline Phosphatase 93 U/L (45-117); Anion Gap 8 (5-15); BUN 17 mg/dL (7-18); BUN/Creat Ratio 19.5 RATIO (10-20); Calcium,Total 9.2 mg/dL (8.5-10.1); Chloride 101 mmol/L (98-107); Creatinine, Serum 0.87 mg/dL (0.55-1.02); EST Glomerular Filtration Rate 73 mL/min (>60); Est Glom Filt Rate - Afr Amer 89 mL/min (>60); Estimated Creatinine Clearance 65.42 ml/min; Glucose 131 mg/dL (74-106); Lipase 89 U/L (13-75); Potassium 3.7 mmol/L (3.5-5.1); Protein, Total 7.5 g/dL (6.4-8.2); Sodium Level 135 mmol/L (136-145)
[2023-06-23 23:24] LABS: Lactic Acid 2.3 mmol/L (0.4-1.9)
[2023-06-23] MEDS: 0.9% Normal Saline (1000mL) 1,000 ML 999 ML IV (23:26)
--- NOTE | 2023-06-23 23:29 | PCM.HP.STD ---
HPI - General General Date of Admission: 06/23/23 Date of Service: 06/23/23 Chief Complaint: Epigastric pain, recurrent. HPI Narrative The patient is a 47 y/o F w/ PMHx: Factor V Leiden mutation w/ Hx VTE (DVT, PE) s/p IVCF placement, HTN, HLD, Seizure disorder, Substance abuse history, Hx CVA, GERD, Depression and Anxiety who presents to the [facility] ED on 06/23/23 with history of onset abdominal discomfort since the evening prior with history of chronic pancreatitis with flare ups nearly every 2 weeks with multiple admissions in the last several months including to [place] as well as [place] with recent discharge from [facility] following with GI at [facility] with upcoming visit to 07/06/2023 with pain management ongoing evaluation with possible assessment for infusions and celiac plexus block as well as planned upcoming MRCP on 07/07/2021 with persistent upper abdominal discomfort radiating toward her back with nausea without emesis typical of her previous flare ups prompting eventual ED evaluation. Currently rate her pain following pain medication in the ED as 6-7 out of 10 in severity. She does report that she was on oral antibiotics approximately 2 weeks prior and that she has been having diarrhea with her current flare but it smells more foul than usual. Work-up in the ED included T97.9, heart rate 132, BP 168/117, respiratory rate 20, 98% on room air, CBC with WC 12.8, hemoglobin 13.3, platelet 392 with left shift, CMP with sodium 135, glucose 131, AST/LT 40/66, lipase 89 otherwise hepatic profile not marked appearing, urinalysis unremarkable and noted to be a poor sample with squamous epithelial cells 10-25. From review of patient's records her most recent trend of previous lipase included 05/07/2023 lipase 49, 02/05/2023 lipase 1450. In the ED patient ministered 1 L normal saline bolus as well as maintenance IV fluids, Zofran 4 mg IV x1 and Dilaudid 1 mg IV x1. From review most recent CT imaging was 02/05/2023 CT A/P with IV contrast w/ diffuse enlargement of the pancreas with walter-pancreatic edema suggesting acute pancreatitis with no focal fluid collection. [facility] Medical History Anxiety Chronic constipation Chronic diastolic HF (heart failure) Depression Depression DVT (deep venous thrombosis) Epilepsy Factor V Leiden mutation Former smoker GERD (gastroesophageal reflux disease) History of CVA (cerebrovascular accident) History of pancreatitis History of pulmonary embolus (PE) Hyperlipidemia Hypertension Pancreatitis Presence of IVC filter Pulmonary embolism Seizure disorder Stroke/cerebrovascular accident Substance abuse Vitamin D deficiency Home Medications furosemide 40 mg tablet 40 mg PO DAILY water pill 09/10/16 [History Last Taken 02/05/23] potassium chloride 10 mEq tablet,extended release(part/cryst) 20 meq PO TID supplment 09/10/16 [History Last Taken 02/05/23] valacyclovir 500 mg tablet (Valtrex) 500 mg PO DAILY herpes 10/25/18 [History Last Taken 02/05/23] melatonin 3 mg capsule 10 mg PO QHS sleep 05/26/19 [History Last Taken 09/08/19] magnesium oxide 600 mg PO DAILY supplement 10/09/20 [History Last Taken Unknown] linaclotide 290 mcg capsule (Linzess) 290 mcg PO DAILY bowels 05/28/21 [History Last Taken 02/05/23] ascorbic acid (vitamin C) 1,000 mg tablet (Vitamin C) 1 g PO DAILY supplement 12/03/21 [History Last Taken 02/05/23] clonazepam 0.5 mg tablet (Klonopin) 0.5 mg PO BID PRN Seizures 12/03/21 [History Last Taken Unknown] clonidine HCl 0.2 mg tablet 0.2 mg PO QHS anxiety 12/03/21 [History Last Taken 02/04/23] methenamine hippurate 1 gram tablet (Hiprex) 1 g PO QHS bladder infections 12/03/21 [History Last Taken 02/04/23] metoprolol tartrate 25 mg tablet 25 mg PO DAILY heart rate 12/03/21 [History Last Taken 02/05/23] venlafaxine 150 mg capsule,extended release 24 hr (Effexor XR) 225 mg PO QHS mood 12/03/21 [History Last Taken 02/04/23] rivaroxaban 10 mg tablet (Xarelto) 10 mg PO DAILY blood thinner 07/07/22 [History Last Taken 02/05/23] cholecalciferol (vitamin D3) 1,250 mcg (50,000 unit) capsule 50,000 unit PO FR supplement 02/05/23 [History Last Taken 02/04/23] lacosamide 100 mg tablet (Vimpat) 100 mg PO DAILY seizures 02/05/23 [History Last Taken 02/05/23] lacosamide 200 mg tablet (Vimpat) 200 mg PO QHS seizures 02/05/23 [History Last Taken 02/04/23] lactulose 10 gram/15 mL oral solution 15 ml PO BID PRN PRN Constipation 02/05/23 [History Last Taken Unknown] ropinirole 0.5 mg tablet 0.5 mg PO BID restless legs 02/05/23 [History Last Taken 02/05/23] garkkkvroa-qkzvvbupwmagr-mlikopyj 50 mg-325 mg-40 mg capsule 1 cap PO Q6H PRN pain 02/23/23 [History Last Taken Unknown] omeprazole 40 mg capsule,delayed release 40 mg PO BID 02/23/23 [History Last Taken Unknown] ondansetron 4 mg disintegrating tablet 4 mg PO Q6H 02/23/23 [History Last Taken Unknown] fenofibrate nanocrystallized 145 mg tablet 145 mg PO QHS 05/07/23 [History Last Taken Unknown] wlqgnx-vxsmcogu-qdpzfed 12,000-38,000-60,000 unit capsule,delayed rel (Creon) 3 cap PO TID 05/07/23 [History Last Taken Unknown] nitrofurantoin monohydrate/macrocrystals 100 mg capsule (Macrobid) 100 mg PO DAILY PRN after sex 05/07/23 [History Last Taken Unknown] promethazine 25 mg tablet 25 mg PO Q12H PRN nausea and vomiting 05/07/23 [History Last Taken Unknown] aripiprazole 10 mg tablet 10 mg PO DAILY 06/23/23 [History Last Taken Unknown] benztropine 0.5 mg tablet 0.5 mg PO BID 06/23/23 [History Last Taken Unknown] divalproex 250 mg tablet,delayed release 250 mg PO Q12H 06/23/23 [History Last Taken Unknown] Allergy/AdvReac Type Severity Reaction Status Date / Time gabapentin [From Neurontin] Allergy Rash Verified 06/23/23 20:45 morphine Allergy HYPOTENSION Verified 06/23/23 20:45 Penicillins Allergy Rash Verified 06/23/23 20:45 Sulfa (Sulfonamide Allergy Rash Verified 06/23/23 20:45 Antibiotics) Family History Mother Hypertension Hyperlipidemia Father Heart disease Surgical History H/O: History of appendectomy History of embolic filter insertion History of hysterectomy Hx of cholecystectomy Social History (Updated 06/23/23 @ 23:[address] Kareen Sanchez MD) household members: none Smoking Status: Current every day smoker tobacco type: e-cigarettes and smokeless tobacco alcohol intake: former substance use type: marijuana ROS ROS Narrative Admission Review of Systems: CONSTITUTIONAL: No weight loss, fever, chills, + weakness or fatigue. HEENT: Eyes: No visual loss, blurred vision, double vision or yellow sclerae. Ears, Nose, Throat: No hearing loss, sneezing, congestion, runny nose or sore throat. SKIN: No rash or itching, lesions, wounds. CARDIOVASCULAR: No chest pain, chest pressure or chest discomfort, palpitations, edema, orthopnea, syncopal events. RESPIRATORY: No shortness of breath, cough or sputum, wheezing, hemoptysis. GASTROINTESTINAL: + anorexia, nausea without vomiting, diarrhea, abdominal pain. No melena, BRBPR. GENITOURINARY: No dysuria, frequency, urgency or retention. NEUROLOGICAL: + Chronic headache. Dizziness, syncope, paralysis, ataxia, numbness or tingling in the extremities, focal weakness, change in bowel or bladder control, seizure. MUSCULOSKELETAL: + muscle, back pain, joint pain or stiffness. HEMATOLOGIC: No anemia, + easy bleeding or bruising. LYMPHATICS: No enlarged nodes. No history of splenectomy. PSYCHIATRIC: + history of depression or anxiety. ENDOCRINOLOGIC: No reports of sweating, cold or heat intolerance. No polyuria or polydipsia. ALLERGIES: No history of asthma, hives, eczema or rhinitis. Vital Signs Vital Signs Vital Signs: 06/23/23 20:43 Temperature 97.9 F Temperature Source Temporal Pulse Rate 132 H Respiratory Rate 20 H Blood Pressure 168/117 H Blood Pressure Mean 134 Pulse Ox 98 Oxygen Delivery Method Room Air Weight Weight: 209 lb 7.026 oz Body Mass Index (BMI) 37.0 Physical Exam Narrative Physical Examination: General: Awake, alert, oriented x 3 and cooperative, laying in the ED bed, no acute distress, currently still reporting pain as 6-7 out of 10 in severity. Skin: Normal color, normal turgor, no icterus, no cyanosis. HEENT: AT/NC, EOMI, PERRLA, moderately dry MM, no carotid bruits or JVD noted. Lungs: CTA bilaterally, moderate effort, mild decrease BL bases, no rales, ronchi or wheezing. Heart: Currently regular rate and rhythm; no gallop, rub audible. Abdomen: Soft, obese, discomfort to epigastric region palpation but no rebound or guarding, hyperactive bowel sounds, difficult to discern distention and HSM given habitus and pain. Extremities: No cyanosis, clubbing, or edema. Neurological: Patient awake, alert, oriented as noted, cognitive function intact; pupils equally reactive to light and accommodation, cranial nerves grossly normal, moving all 4 extremities, no focal deficits, strength moderately to severely global decrease secondary to acute presentation complaints as noted. Psychiatric: Affect appears fatigued, no acute evidence of depressive or anxiety feelings but does have notable underlying psychiatric history. Results Lab / Micro Data 06/23/23 22:25 06/23/23 22:25 Labs: Laboratory Results - last 24 hr 06/23/23 21:30: Urine Color Yellow, Urine Clarity Clear, Urine pH 7.0, Ur Specific [place] 1.010, Urine Protein Negative, Urine Glucose (UA) Normal, Urine Ketones Negative, Urine Occult Blood Negative, Urine Nitrite Negative, Urine Bilirubin Negative, Urine Urobilinogen Normal, Ur Leukocyte Esterase Negative, Urine RBC 0 SEEN, Urine WBC 0-5 SEEN, Ur Squamous Epith Cells 10-25 SEEN, Urine Bacteria 0 SEEN, Urine Mucus 0 SEEN 06/23/23 22:25: WBC 12.8 H, RBC 4.54, Hgb 13.3, Hct 42.5, MCV 93.6, MCH 29.3, MCHC 31.3 L, RDW Std Deviation 45.8 H, RDW Coeff of Megan 13.5, Plt Count 392, MPV 8.5, Immature Gran % (Auto) 0.500, Neut % (Auto) 72.5 H, Lymph % (Auto) 18.5 L, Person % (Auto) 6.3, Eos % (Auto) 1.7, Baso % (Auto) 0.5, Absolute Neuts (auto) 9.3 H, Absolute Lymphs (auto) 2.36, Nucleated RBC % 0, Sodium 135 L, Potassium 3.7, Chloride 101, Carbon Dioxide 26.0, Anion Gap 8, BUN 17, Creatinine 0.87, Estim Creat Clear Calc 65.42, Est GFR (MDRD) Af Amer 89, Est GFR (MDRD) Non-Af 73, BUN/Creatinine Ratio 19.5, Glucose 131 H, Lactic Acid 2.3 H*, Calcium 9.2, Total Bilirubin 0.20, AST 40 H, ALT 66 H, Alkaline Phosphatase 93, Total Protein 7.5, Albumin 3.5, Globulin 4.0, Albumin/Globulin Ratio 0.9, Lipase 89 H Assessment & Plan Assessment/Plan (1) Abdominal pain: PLAN: Plan The patient is a 47 y/o F w/ PMHx: Factor V Leiden mutation w/ Hx VTE (DVT, PE) s/p IVCF placement, HTN, HLD, Seizure disorder, Substance abuse history, Hx CVA, GERD, Depression and Anxiety who presents to the [facility] ED on 06/23/23 with history of onset abdominal discomfort since the evening prior with history of chronic pancreatitis with flareups nearly every 2 weeks with multiple admissions in the last several months including to [place] as well as [place] with recent discharge from [facility] following with GI at [facility] with upcoming visit to 07/06/2023 with pain management ongoing evaluation with possible assessment for infusions and celiac plexus block as well as planned upcoming MRCP on 07/07/2021 with persistent upper abdominal discomfort radiating toward her back with nausea without emesis typical of her previous flareups prompting eventual ED evaluation. #1. Acute on Chronic pancreatitis: Will admit to [facility], maintain on IVFs, NPO until improving with slow diet transition, PPI, IV/po pain control, trend lipase, CMP. Patient does have some concerning history for substance abuse and has been to several hospitals for pancreatitis admission, urine drug screen has been requested. At this point would attempt to manage pain and would have patient follow-up with gastroenterology at on 07/06/2019 and have the outpatient MRCP at that time. Will defer repeat CT as patient has had recent serial CT scans unless labs worsen or pain does not improve as most recently performed within the last 2 weeks. Also given recent antibiotic therapies and more foul-smelling diarrhea with recurrent flareup than usual will obtain C. difficile assessment to be safe. #2. Depression and Anxiety: We will continue patient home chronic aripiprazole, hydroxyzine and venlafaxine regimen as well as clonidine and clonazepam. #3. Factor V Leiden mutation w/ Hx VTE (DVT, PE): s/p IVCF placement, will continue patient home Xarelto regimen. #4. Hypertension: Continue home regimen including metoprolol, will temporally hold Lasix given aggressive hydration for possible acute on chronic pancreatitis as noted, PRN hydralazine. #5. Hyperlipidemia: From current list not on any statin therapy, mild LFT elevations, defer to outpatient. #6. Seizure disorder/epilepsy: We will continue patient home Vimpat and depakote regimen. #7. Chart reported substance abuse history: Urine drug screen requested, given presentation and concern for pancreatitis we will utilize short-term narcotic therapy if necessary. #8. Chart reported history CVA: We will continue patient home Xarelto, not on statin therapy, continue hypertensive regimen with alterations as noted. #9. Restless leg syndrome: We will continue patient on Requip regimen. #10. GERD: We will maintain on PPI. #11. Tobacco Abuse: Encouraged cessation, inpatient consultation per RT, NR if desired. #12. DVT prophylaxis: We will continue patient on Xarelto regimen. Charges/Coding Visit Charges Inpatient E&M: 84666 Init Hosp L2
[2023-06-23 23:53] VITALS: BP 138/94; PULSE 84; RESP 18; O2SAT 99
[2023-06-24] VITALS (12 sets, daily range): BP systolic 102–135; BP diastolic 70–92; PULSE 63–95; RESP 16–18; TEMP 35.9–37.1; O2SAT 95–98; BMI 38.6
[2023-06-24] MEDS: 0.45% Normal Saline 1,000 ML 150 ML IV (01:15)
[2023-06-24 02:44] LABS: Reflex Lactate? Y
[2023-06-24 02:46] LABS: Amphetamine Urine VISTA NEGATIVE (<1000 ng/mL); Barbiturate Urine VISTA NEGATIVE (< 200 ng/mL); Benzodiazepine Urine VISTA NEGATIVE (< 200 ng/mL); Cocaine Urine VISTA NEGATIVE (< 300 ng/mL); Ecstacy Urine VISTA NEGATIVE (< 500 ng/mL); Methadone Urine VISTA NEGATIVE (< 300 ng/mL); PCP Urine VISTA NEGATIVE (< 25 ng/mL); THC Urine VISTA NEGATIVE (< 50 ng/mL); Vista UDS pH Range 6
[2023-06-24] MEDS: 0.9% Normal Saline (1000mL) 1,000 ML 100 ML IV ×3 (03:02→20:10)
[2023-06-24] MEDS: Benztropine Mesylate 0.5 MG TABLET PO ×3 (03:03→22:24)
[2023-06-24] MEDS: cloNIDine HCl 0.2 MG Tablet PO ×2 (03:04→22:24)
[2023-06-24] MEDS: Pantoprazole Sodium 40 MG Tablet PO ×3 (03:04→22:23)
[2023-06-24] MEDS: Ketorolac 30 MG/ML Syringe 15 MG IV ×3 (03:05→22:22)
[2023-06-24] MEDS: Methenamine Hippurate 1 GM Tablet PO (03:05)
[2023-06-24] MEDS: Metoprolol Tartrate 25 MG Tablet PO ×2 (03:05→10:45)
[2023-06-24] MEDS: MELATONIN 10 MG TABLET PO ×2 (03:05→22:23)
[2023-06-24] MEDS: Pramipexole Di-HCl 0.25 MG Tablet PO ×3 (03:06→22:24)
[2023-06-24] MEDS: Divalproex Sodium 250 MG Tablet PO ×3 (03:07→22:23)
[2023-06-24] MEDS: Lacosamide 100 MG Tablet 200 MG PO ×2 (03:08→22:50)
[2023-06-24] MEDS: oxyCODONE 5 MG Tablet 10 MG PO ×3 (03:09→18:16)
[2023-06-24] MEDS: clonazePAM 0.5 MG Tablet PO ×2 (03:09→22:23)
[2023-06-24 03:20] LABS: Absolute Lymphocyte Count 1.91 X10^3/uL (0.83-4.51); Absolute Neutrophil Count 5.6 X10^3/uL (2.0-7.7); Basophil# 0.05 X10^3/uL; Basophil% 0.6 % (0-1); Eosinophils% 2.4 % (0-5); Hematocrit 35.4 % (37-47); Hemoglobin 11.7 g/dL (12.0-15.0); Lymphocyte # 1.91 X10^3/ul (0.83-4.51); Lymphocyte % 23.2 % (19-41); Mean Corp Hgb Conc 33.1 g/dL (32-36); Mean Corpuscular Volume 90.8 fL (81-99); Mean Platelet Vol. 10.5 fl (6.2-12.0); Monocyte# 0.43 X10^3/uL; Monocyte% 5.2 % (0-10); NRBC Flagged by Analyzer 0 % (0-5); Neutrophil # 5.62 X10^3/uL (2.7-7.7); Neutrophil % 68.2 % (47-70); POSITIVE COUNT YES; RBC Distribution Width CV 13.6 % (11.6-14.6); RBC Distribution Width SD 45.5 fl (35.1-43.9); White Blood Count 8.2 K/mm3 (4.4-11.0)
[2023-06-24 03:22] LABS: Differential Indicated SCAN CRITERIA MET
[2023-06-24 03:31] LABS: Internal QC Validated? YES +Cl - CLEAR BKGD; Pregnancy, Serum, hCG Quali. NEGATIVE Negative
[2023-06-24 03:49] LABS: ALB/GLOB Ratio 0.9 RATIO (0.9-2.4); AST(SGOT) 47 U/L (15-37); Alanine Aminotransfer ALT/SGPT 55 U/L (13-56); Alkaline Phosphatase 81 U/L (45-117); Anion Gap 6 (5-15); BUN 16 mg/dL (7-18); BUN/Creat Ratio 22.8 RATIO (10-20); Chloride 107 mmol/L (98-107); EST Glomerular Filtration Rate 94 mL/min (>60); Est Glom Filt Rate - Afr Amer 114 mL/min (>60); Globulin 3.2 g/dL (2.2-4.2); Glucose 152 mg/dL (74-106); Lactic Acid 1.2 mmol/L (0.4-1.9); Lipase 69 U/L (13-75); Potassium 4.6 mmol/L (3.5-5.1); Protein, Total 6.2 g/dL (6.4-8.2); Sodium Level 137 mmol/L (136-145)
[2023-06-24] MEDS: HYDROmorphone 1 MG/ML Syringe IV ×5 (04:37→19:59)
[2023-06-24] MEDS: Miconazole Nitrate 43 GM Bottle 1 APPLIC TOPICAL ×3 (04:37→22:30)
[2023-06-24] MEDS: Potassium Chloride Oral Tablet 10 MEQ 20 MEQ PO ×3 (04:37→22:23)
[2023-06-24 05:09] LABS: Platelet Morphology CLUMPED
[2023-06-24] MEDS: Ondansetron 4 MG/2 ML Vial IV ×2 (08:11→16:27)
[2023-06-24] MEDS: ARIPiprazole 10 MG Tablet PO (10:44)
[2023-06-24] MEDS: Acyclovir 200 MG Capsule 400 MG PO ×2 (10:44→22:24)
[2023-06-24] MEDS: Furosemide 40 MG Tablet PO (10:44)
[2023-06-24] MEDS: Ascorbic Acid 500 MG Tablet 1000 MG PO (10:44)
[2023-06-24] MEDS: Rivaroxaban 10 MG Tablet PO (10:45)
[2023-06-24] MEDS: Acetaminophen 325 MG Tablet 650 MG PO (10:54)
[2023-06-24] MEDS: Lacosamide 100 MG Tablet PO (12:46)
[2023-06-24] MEDS: 0.9% Saline Lock 10 ML Syringe IV ×3 (13:01→20:00)
--- NOTE | 2023-06-24 14:15 | CASEMGMT ---
Met with patient to complete RAMOS form. RAMOS form explained to patient who voiced understanding and signed form. Original form placed in pt?s chart and copy provided to?patient. Lubna Gomez, Discharge Planning Asst.
--- NOTE | 2023-06-24 14:22 | PN_ITS ---
Subjective Subjective Patient seen and examined. She still complained of some abdominal pain but said it was getting better. She had been having foul smelling stools from her chronic pancreatitis. She denied any nausea, vomiting or any other symptoms. REview of systems is otherwise negative. Objective Data Objective Data Vital Signs: Vital Signs Temp Pulse Resp BP Pulse Ox O2 Del Method 97.7 F L 76 18 112/70 97 Room Air 06/24/23 10:36 06/24/23 10:45 06/24/23 10:36 06/24/23 10:36 06/24/23 10:36 06/24/23 13:33 Oxygen Delivery Method Room Air Weight: 218 lb 0.595 oz Body Mass Index (BMI) 38.6 Intake & Output: Intake and Output for Last 24 Hours 06/22/23 06/23/23 06/24/23 23:59 23:59 23:59 Intake Total 2381.67 / 2381.67 Balance 2381.67 / 2381.67 Lab / Micro Data 06/24/23 03:00 06/24/23 03:00 Labs: Laboratory Results - last 24 hr 06/23/23 21:30: Urine Color Yellow, Urine Clarity Clear, Urine pH 7.0, Ur Specific [place] 1.010, Urine Protein Negative, Urine Glucose (UA) Normal, Urine Ketones Negative, Urine Occult Blood Negative, Urine Nitrite Negative, Urine Bilirubin Negative, Urine Urobilinogen Normal, Ur Leukocyte Esterase Negative, Urine RBC 0 SEEN, Urine WBC 0-5 SEEN, Ur Squamous Epith Cells 10-25 SEEN, Urine Bacteria 0 SEEN, Urine Mucus 0 SEEN, Urine Opiates Screen NEGATIVE, Urine Methadone Screen NEGATIVE, Ur Barbiturates Screen NEGATIVE, Ur Phencyclidine Scrn NEGATIVE, Ur Amphetamines Screen NEGATIVE, MDMA (Ecstasy) Screen NEGATIVE, U Benzodiazepines Scrn NEGATIVE, Urine Cocaine Screen NEGATIVE, U Cannabinoids Screen NEGATIVE, Ur Drug Screen Comment 06/23/23 22:25: WBC 12.8 H, RBC 4.54, Hgb 13.3, Hct 42.5, MCV 93.6, MCH 29.3, MCHC 31.3 L, RDW Std Deviation 45.8 H, RDW Coeff of Megan 13.5, Plt Count 392, MPV 8.5, Immature Gran % (Auto) 0.500, Neut % (Auto) 72.5 H, Lymph % (Auto) 18.5 L, [place] % (Auto) 6.3, Eos % (Auto) 1.7, Baso % (Auto) 0.5, Absolute Neuts (auto) 9.3 H, Absolute Lymphs (auto) 2.36, Nucleated RBC % 0, Sodium 135 L, Potassium 3.7, Chloride 101, Carbon Dioxide 26.0, Anion Gap 8, BUN 17, Creatinine 0.87, Estim Creat Clear Calc 65.42, Est GFR (MDRD) Af Amer 89, Est GFR (MDRD) Non-Af 73, BUN/Creatinine Ratio 19.5, Glucose 131 H, Lactic Acid 2.3 H*, Calcium 9.2, Total Bilirubin 0.20, AST 40 H, ALT 66 H, Alkaline Phosphatase 93, Total Protein 7.5, Albumin 3.5, Globulin 4.0, Albumin/Globulin Ratio 0.9, Lipase 89 H 06/24/23 03:00: WBC 8.2, RBC 3.90 L, Hgb 11.7 L, Hct 35.4 L, MCV 90.8, MCH 30.0, MCHC 33.1 D, RDW Std Deviation 45.5 H, RDW Coeff of Megan 13.6, Plt Count TNP, M PV 10.5, Immature Gran % (Auto) 0.400, Neut % (Auto) 68.2, Lymph % (Auto) 23.2, [place] % (Auto) 5.2, Eos % (Auto) 2.4, Baso % (Auto) 0.6, Absolute Neuts (auto) 5.6, Absolute Lymphs (auto) 1.91, Nucleated RBC % 0, Plt Morphology Comment CLUMPED, Sodium 137, Potassium 4.6, Chloride 107, Carbon Dioxide 24.0, Anion Gap 6, BUN 16, Creatinine 0.70, Estim Creat Clear Calc 81.30, Est GFR (MDRD) Af Amer 114, Est GFR (MDRD) Non-Af 94, BUN/Creatinine Ratio 22.8 H, Glucose 152 H, Lactic Acid 1.2, Calcium 8.0 L, Total Bilirubin 0.20, AST 47 H, ALT 55, Alkaline Phosphatase 81, Total Protein 6.2 L, Albumin 3.0 L, Globulin 3.2, Albumin/Globulin Ratio 0.9, Lipase 69, Serum , Qual NEGATIVE Physical Exam Const alert, oriented x3 and no apparent distress Constitutional Narrative: obese HEENT normocephalic and moist oral mucous membranes Eyes PERRL and EOMs intact bilaterally Neck no lymphadenopathy and supple Lymph Lymphatic: no lymphadenopathy noted and no lymphedema noted Resp normal respiratory effort, normal air movement and clear to auscultation bilaterally Cardio regular rate, regular rhythm, S1 normal heart sound, S2 normal heart sound and no murmurs GI GI Narrative: obese abdomen, moderate epigastric tenderness, no guarding or rebound tenderness. Extremity normal capillary refill, no clubbing, cyanosis or edema and no calf tenderness Skin General Skin Exam: no breakdown Neuro CN's II-XII intact bilaterally, no focal motor deficits, no sensory deficits noted and deep tendon reflexes 2+ bilaterally Motor Exam: strength 5/5 throughout and general weakness Psych thought process normal and cooperative Appearance: appropriate Assessment & Plan Assessment/Plan (1) Pancreatitis: (2) Abdominal pain: PLAN: Plan #Acute on chronic pancreatitis * on IV morphine. * follows up at * on clear liquid diet, will advance as tolerated. * continue gentle hydration with IVF * #Depression and anxiety: on aripiprazole, hydroxyzine and venlafaxine as well as clonidine and clonazepam #Factor V Leiden mutation * has had DVT and PE in the past due to Factor V Leiden mutation. * on xarelto * #Hypertension: on metoprolol. Iv hydralazine prn #Seizure disorder: On Depakote and Vimpat #History of polysubstance abuse: Urine tox showed: #Restless leg syndrome: On Requip #GERD: PPI DVT prophylaxis: already on xarelto Charges/Coding Visit Charges Inpatient E&M: 80685 Subs Hosp L2
[2023-06-24] MEDS: proCHLORPERazine 10 MG/2 ML Vial 5 MG IV (14:54)
[2023-06-24] MEDS: Fenofibrate 145 MG Tablet PO (22:23)
[2023-06-24] MEDS: Venlafaxine XR 75 MG Capsule 225 MG PO (22:23)
[2023-06-24] MEDS: hydroCHLOROthiazide 25 MG Tablet PO (22:24)
[2023-06-25] VITALS (7 sets, daily range): BP systolic 103–121; BP diastolic 62–92; PULSE 69–75; RESP 16–18; TEMP 36.2–36.6; O2SAT 94–98; BMI 38.7
[2023-06-25] MEDS: oxyCODONE 5 MG Tablet 10 MG PO ×5 (00:55→20:07)
[2023-06-25] MEDS: Acetaminophen 325 MG Tablet 650 MG PO (00:56)
[2023-06-25] MEDS: HYDROmorphone 1 MG/ML Syringe IV ×4 (02:24→16:51)
[2023-06-25] MEDS: Potassium Chloride Oral Tablet 10 MEQ 20 MEQ PO ×3 (05:10→21:52)
[2023-06-25] MEDS: Miconazole Nitrate 43 GM Bottle 1 APPLIC TOPICAL ×3 (05:11→21:55)
[2023-06-25] MEDS: 0.9% Normal Saline (1000mL) 1,000 ML 100 ML IV (05:53)
[2023-06-25] MEDS: 0.9% Saline Lock 10 ML Syringe IV ×2 (06:57→16:54)
[2023-06-25 07:18] LABS: Absolute Lymphocyte Count 1.61 X10^3/uL (0.83-4.51); Absolute Neutrophil Count 2.3 X10^3/uL (2.0-7.7); Basophil# 0.05 X10^3/uL; Basophil% 1.1 % (0-1); Eosinophil# 0.34 X10^3/uL; Eosinophils% 7.3 % (0-5); Hematocrit 34.7 % (37-47); Hemoglobin 10.8 g/dL (12.0-15.0); Lymphocyte # 1.61 X10^3/ul (0.83-4.51); Lymphocyte % 34.6 % (19-41); Mean Corp Hgb Conc 31.1 g/dL (32-36); Mean Corpuscular Hgb 29.1 pg (27.0-32.0); Mean Corpuscular Volume 93.5 fL (81-99); Mean Platelet Vol. 8.4 fl (6.2-12.0); Monocyte# 0.38 X10^3/uL; Monocyte% 8.2 % (0-10); NRBC Flagged by Analyzer 0 % (0-5); Neutrophil # 2.26 X10^3/uL (2.7-7.7); Neutrophil % 48.6 % (47-70); Platelet Count 305 K/mm3 (150-450); RBC Distribution Width CV 13.6 % (11.6-14.6); RBC Distribution Width SD 46.7 fl (35.1-43.9); Red Blood Count 3.71 M/mm3 (4.2-5.4); White Blood Count 4.7 K/mm3 (4.4-11.0)
[2023-06-25 07:57] LABS: ALB/GLOB Ratio 0.9 RATIO (0.9-2.4); AST(SGOT) 52 U/L (15-37); Alanine Aminotransfer ALT/SGPT 75 U/L (13-56); Albumin, Serum 2.9 g/dL (3.2-5.0); Alkaline Phosphatase 93 U/L (45-117); Anion Gap 4 (5-15); BUN 17 mg/dL (7-18); BUN/Creat Ratio 20.2 RATIO (10-20); Calcium,Total 7.9 mg/dL (8.5-10.1); Chloride 108 mmol/L (98-107); Creatinine, Serum 0.84 mg/dL (0.55-1.02); EST Glomerular Filtration Rate 77 mL/min (>60); Est Glom Filt Rate - Afr Amer 93 mL/min (>60); Estimated Creatinine Clearance 67.75 ml/min; Globulin 3.4 g/dL (2.2-4.2); Glucose 121 mg/dL (74-106); Protein, Total 6.3 g/dL (6.4-8.2); Sodium Level 137 mmol/L (136-145)
[2023-06-25] MEDS: clonazePAM 0.5 MG Tablet PO ×2 (10:14→21:53)
[2023-06-25] MEDS: Rivaroxaban 10 MG Tablet PO (10:25)
[2023-06-25] MEDS: Ascorbic Acid 500 MG Tablet 1000 MG PO (10:25)
[2023-06-25] MEDS: Benztropine Mesylate 0.5 MG TABLET PO ×2 (10:26→21:52)
[2023-06-25] MEDS: Furosemide 40 MG Tablet PO (10:26)
[2023-06-25] MEDS: Divalproex Sodium 250 MG Tablet PO ×2 (10:26→21:50)
[2023-06-25] MEDS: Acyclovir 200 MG Capsule 400 MG PO ×2 (10:26→21:53)
[2023-06-25] MEDS: Pantoprazole Sodium 40 MG Tablet PO ×2 (10:26→21:52)
[2023-06-25] MEDS: Pramipexole Di-HCl 0.25 MG Tablet PO ×2 (10:26→21:52)
[2023-06-25] MEDS: ARIPiprazole 10 MG Tablet PO (10:26)
[2023-06-25] MEDS: hydroCHLOROthiazide 25 MG Tablet PO (10:27)
[2023-06-25] MEDS: Metoprolol Tartrate 25 MG Tablet PO (10:27)
[2023-06-25] MEDS: Lacosamide 100 MG Tablet PO (10:27)
--- NOTE | 2023-06-25 10:41 | PN_ITS ---
Subjective Subjective Patient seen and examined. She said she felt much better today. She had no complaints. Abdominal pain had improved. Review of systems is otherwise negative. She has remained hemodynamically stable. Objective Data Objective Data Vital Signs: Vital Signs Temp Pulse Resp BP Pulse Ox O2 Del Method 97.1 F L 74 16 103/79 97 Room Air 06/25/23 10:00 06/25/23 10:27 06/25/23 10:00 06/25/23 10:00 06/25/23 10:00 06/25/23 10:00 Oxygen Delivery Method Room Air Weight: 218 lb 11.177 oz Body Mass Index (BMI) 38.7 Intake & Output: Intake and Output for Last 24 Hours 06/23/23 06/24/23 06/25/23 23:59 23:59 23:59 Intake Total 3608.34 / 3608.34 1021.67 / 1021.67 Balance 3608.34 / 3608.34 1021.67 / 1021.67 Lab / Micro Data 06/25/23 06:51 06/25/23 06:51 Labs: Laboratory Results - last 24 hr 06/25/23 06:51: WBC 4.7, RBC 3.71 L, Hgb 10.8 L, Hct 34.7 L, MCV 93.5, MCH 29.1, MCHC 31.1 L D, RDW Std Deviation 46.7 H, RDW Coeff of Megan 13.6, Plt Count 305, MPV 8.4, Immature Gran % (Auto) 0.200, Neut % (Auto) 48.6, Lymph % (Auto) 34.6, [place] % (Auto) 8.2, Eos % (Auto) 7.3 H, Baso % (Auto) 1.1 H, Absolute Neuts (auto) 2.3, Absolute Lymphs (auto) 1.61, Nucleated RBC % 0, Sodium 137, Potassium 4.0, Chloride 108 H, Carbon Dioxide 25.0, Anion Gap 4 L, BUN 17, Creatinine 0.84, Estim Creat Clear Calc 67.75, Est GFR (MDRD) Af Amer 93, Est GFR (MDRD) Non-Af 77, BUN/Creatinine Ratio 20.2 H, Glucose 121 H, Calcium 7.9 L, Total Bilirubin 0.30, AST 52 H, ALT 75 H, Alkaline Phosphatase 93, Total Protein 6.3 L, Albumin 2.9 L, Globulin 3.4, Albumin/Globulin Ratio 0.9 Physical Exam Const alert, oriented x3 and no apparent distress Constitutional Narrative: obese HEENT normocephalic and moist oral mucous membranes Eyes PERRL and EOMs intact bilaterally Neck no lymphadenopathy and supple Lymph Lymphatic: no lymphadenopathy noted and no lymphedema noted Resp normal respiratory effort, normal air movement and clear to auscultation esthela aterally Cardio regular rate, regular rhythm, S1 normal heart sound, S2 normal heart sound and no murmurs GI GI Narrative: obese abdomen, minimal epigastric tenderness, no guarding or rebound tenderness. Extremity normal capillary refill, no clubbing, cyanosis or edema and no calf tenderness Skin General Skin Exam: no breakdown Neuro CN's II-XII intact bilaterally, no focal motor deficits, no sensory deficits noted and deep tendon reflexes 2+ bilaterally Motor Exam: strength 5/5 throughout and general weakness Psych thought process normal and cooperative Appearance: appropriate Assessment & Plan Assessment/Plan (1) Pancreatitis: (2) Abdominal pain: PLAN: Plan #Acute on chronic pancreatitis * on IV morphine. * follows up at * on clear liquid diet, will advance as tolerated. * continue gentle hydration with IVF * advance to regular diet today as tolerated * #Depression and anxiety: on aripiprazole, hydroxyzine and venlafaxine as well as clonidine and clonazepam #Factor V Leiden mutation * has had DVT and PE in the past due to Factor V Leiden mutation. * on xarelto * #Hypertension: on metoprolol. Iv hydralazine prn #Seizure disorder: On Depakote and Vimpat #History of polysubstance abuse: Urine tox showed: #Restless leg syndrome: On Requip #GERD: PPI DVT prophylaxis: already on xarelto Disposition: patient wants to stay one more day, so will dc tomorrow. Charges/Coding Visit Charges Inpatient E&M: 43786 Subs Hosp L2
[2023-06-25] MEDS: cloNIDine HCl 0.2 MG Tablet PO (21:50)
[2023-06-25] MEDS: Venlafaxine XR 75 MG Capsule 225 MG PO (21:50)
[2023-06-25] MEDS: Fenofibrate 145 MG Tablet PO (21:51)
[2023-06-25] MEDS: Methenamine Hippurate 1 GM Tablet PO (21:52)
[2023-06-25] MEDS: Lacosamide 100 MG Tablet 200 MG PO (21:53)
[2023-06-25] MEDS: MELATONIN 10 MG TABLET PO (21:55)
[2023-06-26] MEDS: oxyCODONE 5 MG Tablet 10 MG PO ×3 (00:26→08:50)
[2023-06-26] MEDS: Ondansetron 4 MG/2 ML Vial IV (00:27)
[2023-06-26] MEDS: 0.9% Saline Lock 10 ML Syringe IV ×2 (00:27→04:48)
[2023-06-26 04:10] VITALS: BP 102/70; PULSE 73; RESP 18; TEMP 36.7; O2SAT 98
[2023-06-26 04:18] VITALS: BMI 38.5
[2023-06-26] MEDS: DiphenhydrAMINE 50 MG/ML Syringe 25 MG IV (04:48)
[2023-06-26] MEDS: Potassium Chloride Oral Tablet 10 MEQ 20 MEQ PO (04:48)
[2023-06-26 06:31] LABS: Basophil# 0.05 X10^3/uL; Eosinophil# 0.29 X10^3/uL; Eosinophils% 5.5 % (0-5); Hematocrit 36.1 % (37-47); Hemoglobin 11.3 g/dL (12.0-15.0); Lymphocyte % 28.7 % (19-41); Mean Corp Hgb Conc 31.3 g/dL (32-36); Mean Corpuscular Hgb 28.8 pg (27.0-32.0); Mean Corpuscular Volume 92.1 fL (81-99); Mean Platelet Vol. 8.6 fl (6.2-12.0); Monocyte# 0.36 X10^3/uL; Monocyte% 6.9 % (0-10); NRBC Flagged by Analyzer 0 % (0-5); Neutrophil # 3.01 X10^3/uL (2.7-7.7); Neutrophil % 57.5 % (47-70); Platelet Count 345 K/mm3 (150-450); RBC Distribution Width CV 13.5 % (11.6-14.6); RBC Distribution Width SD 45.6 fl (35.1-43.9); Red Blood Count 3.92 M/mm3 (4.2-5.4); White Blood Count 5.2 K/mm3 (4.4-11.0)
[2023-06-26 08:03] LABS: ALB/GLOB Ratio 0.8 RATIO (0.9-2.4); AST(SGOT) 51 U/L (15-37); Alanine Aminotransfer ALT/SGPT 67 U/L (13-56); Albumin, Serum 3.1 g/dL (3.2-5.0); Alkaline Phosphatase 98 U/L (45-117); Anion Gap 8 (5-15); BUN 14 mg/dL (7-18); BUN/Creat Ratio 15.5 RATIO (10-20); Calcium,Total 8.7 mg/dL (8.5-10.1); Chloride 102 mmol/L (98-107); EST Glomerular Filtration Rate 71 mL/min (>60); Est Glom Filt Rate - Afr Amer 85 mL/min (>60); Estimated Creatinine Clearance 63.24 ml/min; Globulin 3.8 g/dL (2.2-4.2); Glucose 149 mg/dL (74-106); Potassium 3.9 mmol/L (3.5-5.1); Protein, Total 6.9 g/dL (6.4-8.2); Sodium Level 137 mmol/L (136-145)
[2023-06-26] MEDS: clonazePAM 0.5 MG Tablet PO (08:50)
[2023-06-26] MEDS: Lacosamide 100 MG Tablet PO (08:52)
[2023-06-26] MEDS: Pramipexole Di-HCl 0.25 MG Tablet PO (08:54)
[2023-06-26] MEDS: Divalproex Sodium 250 MG Tablet PO (08:54)
[2023-06-26] MEDS: Acyclovir 200 MG Capsule 400 MG PO (08:55)
[2023-06-26] MEDS: ARIPiprazole 10 MG Tablet PO (08:55)
[2023-06-26] MEDS: Pantoprazole Sodium 40 MG Tablet PO (08:55)
[2023-06-26] MEDS: Furosemide 40 MG Tablet PO (08:55)
[2023-06-26] MEDS: Ascorbic Acid 500 MG Tablet 1000 MG PO (08:55)
[2023-06-26] MEDS: hydroCHLOROthiazide 25 MG Tablet PO (08:59)
[2023-06-26] MEDS: Rivaroxaban 10 MG Tablet PO (09:00)
[2023-06-26] MEDS: Benztropine Mesylate 0.5 MG TABLET PO (09:00)
[2023-06-26 09:04] VITALS: BP 122/82; PULSE 91; RESP 16; TEMP 36.6; O2SAT 98
[2023-06-26 09:07] VITALS: PULSE 91
[2023-06-26] MEDS: Metoprolol Tartrate 25 MG Tablet PO (09:07)
--- NOTE | 2023-06-26 10:11 | PCM.DC.SUM ---
Providers Date of Admission: 06/23/23 Date of Discharge: 06/26/23 Primary Care Physician: ADRI GardnerC Reason For Visit: INTRACTABLE ABD PAIN, ACUTE ON CHRONIC PANCREATITI Diagnosis Discharge Diagnosis (1) Pancreatitis: Status: Acute Code(s): K85.90 - Acute pancreatitis without necrosis or infection, unspecified (2) Abdominal pain: Status: Acute Code(s): R10.9 - Unspecified abdominal pain Plan #Acute on chronic pancreatitis on IV morphine. follows up at on clear liquid diet, will advance as tolerated. continue gentle hydration with IVF advance to regular diet today as tolerated #Depression and anxiety: on aripiprazole, hydroxyzine and venlafaxine as well as clonidine and clonazepam #Factor V Leiden mutation has had DVT and PE in the past due to Factor V Leiden mutation. on xarelto #Hypertension: on metoprolol. Iv hydralazine prn #Seizure disorder: On Depakote and Vimpat #History of polysubstance abuse: Urine tox showed: #Restless leg syndrome: On Requip #GERD: PPI DVT prophylaxis: already on xarelto Disposition: patient wants to stay one more day, so will dc tomorrow. Medications at Discharge Home Medications furosemide 40 mg tablet 40 mg PO DAILY water pill 09/10/16 potassium chloride 10 mEq tablet,extended release(part/cryst) 20 meq PO TID supplment 09/10/16 valacyclovir 500 mg tablet (Valtrex) 500 mg PO DAILY herpes 10/25/18 melatonin 3 mg capsule 10 mg PO QHS sleep 05/26/19 magnesium oxide 600 mg PO DAILY supplement 10/09/20 linaclotide 290 mcg capsule (Linzess) 290 mcg PO DAILY bowels 05/28/21 ascorbic acid (vitamin C) 1,000 mg tablet (Vitamin C) 1 g PO DAILY supplement 12/03/21 clonazepam 0.5 mg tablet (Klonopin) 0.5 mg PO BID PRN Seizures 12/03/21 clonidine HCl 0.2 mg tablet 0.2 mg PO QHS anxiety 12/03/21 methenamine hippurate 1 gram tablet (Hiprex) 1 g PO QHS bladder infections 12/03/21 metoprolol tartrate 25 mg tablet 25 mg PO DAILY heart rate 12/03/21 venlafaxine 150 mg capsule,extended release 24 hr (Effexor XR) 225 mg PO QHS mood 12/03/21 rivaroxaban 10 mg tablet (Xarelto) 10 mg PO DAILY blood thinner 07/07/22 cholecalciferol (vitamin D3) 1,250 mcg (50,000 unit) capsule 50,000 unit PO FR supplement 02/05/23 lacosamide 100 mg tablet (Vimpat) 100 mg PO DAILY seizures 02/05/23 lacosamide 200 mg tablet (Vimpat) 200 mg PO QHS seizures 02/05/23 lactulose 10 gram/15 mL oral solution 15 ml PO BID PRN PRN Constipation 02/05/23 ropinirole 0.5 mg tablet 0.5 mg PO BID restless legs 02/05/23 tfocdsfrlx-oxovkbitoxpxs-uhicixyr 50 mg-325 mg-40 mg capsule 1 cap PO Q6H PRN pain 02/23/23 omeprazole 40 mg capsule,delayed release 40 mg PO BID 02/23/23 ondansetron 4 mg disintegrating tablet 4 mg PO Q6H 02/23/23 fenofibrate nanocrystallized 145 mg tablet 145 mg PO QHS 05/07/23 ibuclw-ipqwhnqk-pxhvaku 12,000-38,000-60,000 unit capsule,delayed rel (Creon) 3 cap PO TID 05/07/23 nitrofurantoin monohydrate/macrocrystals 100 mg capsule (Macrobid) 100 mg PO DAILY PRN after sex 05/07/23 promethazine 25 mg tablet 25 mg PO Q12H PRN nausea and vomiting 05/07/23 aripiprazole 10 mg tablet 10 mg PO DAILY 06/23/23 benztropine 0.5 mg tablet 0.5 mg PO BID 06/23/23 divalproex 250 mg tablet,delayed release 250 mg PO Q12H 06/23/23 oxycodone 10 mg tablet 10 mg PO Q6H PRN pain 3 days #12 tabs 06/26/23 Hospital Course Operations None Procedures None Summary of Care Provided Minutes Spent on Discharge: 52 Hospital Course: Patient is a 47-year-old female with an extensive past medical history as outlined including factor V Leiden mutation with history of DVT status post IVC placement, hypertension hyperlipidemia as well as chronic pancreatitis and substance abuse history. She was admitted through the ED on 06/23/2023 with a complaint of abdominal pain. She had a history of chronic pancreatitis and had a flareup just about every 2 weeks. She had been admitted several times in the last few months to [facility] as well as to [facility] and had been discharged from [facility] recently and was due to follow-up with a electric motor winders assembler at [facility] and 2022. She was also seen pain management. She presented with severe abdominal pain and had been having diarrhea as well. Urinalysis showed no evidence of UTI. CT of the abdomen and pelvis showed diffuse enlargement of the pancreas with peripancreatic edema suggestive of acute pancreatitis. She was admitted and managed for acute pancreatitis in the setting of chronic pancreatitis. She was kept n.p.o. and hydrated with IV fluids. She was also given IV pain medication. Abdominal pain gradually improved and she felt better. She was started on a diet which she was able to tolerate and diet was advanced to a regular diet. She remained stable and was discharged home on 06/26/2023. She is follow-up with her primary care doctor within 1 week and follow-up with her electric motor winders assembler as scheduled. She was given a prescription for p.o. oxycodone 10 mg every 6 hours as needed for 3 days for total of 12 tablets. OARRS score was checked. Patient seen and examined prior to discharge. She had no active complaints and had an uneventful night. She did have a bit of abdominal pain but had improved. Labs and vitals reviewed. Her medications reviewed and reconciled. Physical Exam Const alert, oriented x3 and no apparent distress Constitutional Narrative: obese General Appearance: cooperative, comfortable and well kempt HEENT normocephalic, head/scalp atraumatic, hearing grossly normal bilaterally and moist oral mucous membranes Mouth: oral and palatal mucosa normal Eyes PERRL, EOMs intact bilaterally and conjunctivae normal Neck no lymphadenopathy and supple Lymph Lymphatic: no lymphadenopathy noted and no lymphedema noted Resp normal respiratory effort, normal air movement and clear to auscultation bilaterally Cardio regular rate, regular rhythm, S1 normal heart sound, S2 normal heart sound and no murmurs GI normal to inspection, nondistended, normoactive bowel sounds, soft to palpation and non-tender GI Narrative: obese abdomen Extremity normal to inspection, full ROM, normal capillary refill, no clubbing, cyanosis or edema and no calf tenderness Skin no rashes or lesions noted General Skin Exam: no breakdown Neuro CN's II-XII intact bilaterally, moves all extremities, no focal motor deficits, no sensory deficits noted and deep tendon reflexes 2+ bilaterally Sensorium / Orientation: awake and alert Motor Exam: strength 5/5 throughout and general weakness Psych thought process normal and cooperative Appearance: appropriate Weight / BMI Weight Weight: 217 lb 6.012 oz Body Mass Index (BMI) 38.5 ABG / Lab / Microbiology Data 06/26/23 06:04 06/26/23 06:04 Laboratory: Laboratory Results - last 24 hr 06/26/23 06:04: WBC 5.2, RBC 3.92 L, Hgb 11.3 L, Hct 36.1 L, MCV 92.1, MCH 28.8, MCHC 31.3 L, RDW Std Deviation 45.6 H, RDW Coeff of Megan 13.5, Plt Count 345, MPV 8.6, Immature Gran % (Auto) 0.400, Neut % (Auto) 57.5, Lymph % (Auto) 28.7, [place] % (Auto) 6.9, Eos % (Auto) 5.5 H, Baso % (Auto) 1.0, Absolute Neuts (auto) 3.0, Absolute Lymphs (auto) 1.50, Nucleated RBC % 0, Sodium 137, Potassium 3.9, Chloride 102, Carbon Dioxide 27.0, Anion Gap 8, BUN 14, Creatinine 0.90, Estim Creat Clear Calc 63.24, Est GFR (MDRD) Af Amer 85, Est GFR (MDRD) Non-Af 71, BUN/Creatinine Ratio 15.5, Glucose 149 H, Calcium 8.7, Total Bilirubin 0.20, AST 51 H, ALT 67 H, Alkaline Phosphatase 98, Total Protein 6.9, Albumin 3.1 L, Globulin 3.8, Albumin/Globulin Ratio 0.8 L D/C Instructions Discharge Diet: Low fat / Low cholesterol Discharge Activity: Return to Normal Activity Weight Bearing Status: Weight bearing as tolerated Call your doctor if you observe: Fever of 101 or Higher, Shortness of breath, Dizziness, Swelling in the ankles, Chest pain and Uncontrolled pain Meaningful Use Info Meaningful Use Diagnoses (Choose all that apply): None applicable Discharge Plan Admission Admit Date/Time: 06/23/23 23:30 Primary Reason for Your Visit: acute on chronic pancreatitis Attending Provider: Desi Basilio Primary Care Provider: Rin Rivera NP Consulting Providers: Kareen Sanchez Instructions Patient Instructions: Pancreatitis Acute Dc, Pancreatitis Chronic Dc Discharge Orders/Prescriptions Prescriptions: New oxycodone 10 mg tablet 10 mg PO Q6H PRN (Reason: pain) 3 Days Qty: 12 0RF Continued ondansetron 4 mg tablet,disintegrating 4 mg PO Q6H omeprazole 40 mg capsule,delayed release(DR/EC) 40 mg PO BID vsuknflwuv-rwysualeiutrk-bzpe 50-325-40 mg capsule 1 cap PO Q6H PRN (Reason: pain) furosemide 40 MG tablet 40 mg PO DAILY potassium chloride 10 MEQ tablet 20 meq PO TID valacyclovir [Valtrex] 500 MG tablet 500 mg PO DAILY melatonin 3 MG capsule 10 mg PO QHS magnesium oxide 200 MG tablet 600 mg PO DAILY Linzess 290 mcg capsule 290 mcg PO DAILY Patient Comments: take 1 capsule by mouth once daily clonidine HCl 0.2 mg Tablet 0.2 mg PO QHS methenamine hippurate [Hiprex] 1 gram Tablet 1 g PO QHS ascorbic acid (vitamin C) [Vitamin C] 1,000 mg Tablet 1 g PO DAILY clonazepam [Klonopin] 0.5 mg Tablet 0.5 mg PO BID PRN (Reason: Seizures) venlafaxine [Effexor XR] 150 mg Capsule,Extended Release 24hr 225 mg PO QHS metoprolol tartrate 25 mg Tablet 25 mg PO DAILY Xarelto 10 mg tablet 10 mg PO DAILY ropinirole 0.5 mg Tablet 0.5 mg PO BID lactulose 10 gram/15 mL Solution 15 ml PO BID PRN PRN (Reason: Constipation) cholecalciferol (vitamin D3) 1,250 mcg (50,000 unit) capsule 50,000 unit PO FR Patient Comments: TAKE 1 CAPSULE BY MOUTH EVERY WEEK lacosamide [Vimpat] 100 mg Tablet 100 mg PO DAILY lacosamide [Vimpat] 200 mg Tablet 200 mg PO QHS aripiprazole 10 mg tablet 10 mg PO DAILY benztropine 0.5 mg tablet 0.5 mg PO BID Patient Comments: TAKE 1 TABLET BY MOUTH TWICE DAILY As Needed for eps divalproex 250 mg tablet,delayed release (DR/EC) 250 mg PO Q12H Patient Comments: TAKE 1 TABLET TWICE DAILY for mood Creon 12,000-38,000 -60,000 unit capsule,delayed release(DR/EC) 3 cap PO TID Rx Instructions: administer with meals and/or snacks fenofibrate nanocrystallized 145 mg tablet 145 mg PO QHS nitrofurantoin monohyd/m-cryst [Macrobid] 100 mg capsule 100 mg PO DAILY PRN (Reason: after sex) promethazine 25 mg tablet 25 mg PO Q12H PRN (Reason: nausea and vomiting) Patient Comments: TAKE 1 TABLET BY MOUTH TWICE DAILY Referrals / Follow Up: Rin Rivera DIRECTOR OF CARDIAC CATH LAB, DIRECTOR OF CARDIAC CATH LAB-C [Primary Care Provider] - Within 2 Weeks Disposition Disposition (needs filled in before D/C Order can be placed): Home, Self Care Charges/Coding Visit Charges Inpatient E&M: 63105 Disch Hosp >30min
== END 2023-06-26 10:10 | disposition home or self-care (01) ==
LOC: ED 23:28 → PCU 06-24 00:09
PROVIDERS: Admitting Provider Family Medicine; Emergency Provider Emergency Medicine; PCP Nurse Practitioner Family; Visit Provider Student in an Organized Health Care Education/Training Program
DX: K85.90 Acute pancreatitis without necrosis or infection, unspecified (principal); I50.32 Chronic diastolic (congestive) heart failure; I11.0 Hypertensive heart disease with heart failure; K86.1 Other chronic pancreatitis; G40.909 Epilepsy, unspecified, not intractable, without status epilepticus; D68.51 Activated protein C resistance; F41.9 Anxiety disorder, unspecified; E78.5 Hyperlipidemia, unspecified; R19.7 Diarrhea, unspecified; F17.220 Nicotine dependence, chewing tobacco, uncomplicated; Z79.01 Long term (current) use of anticoagulants; K21.9 Gastro-esophageal reflux disease without esophagitis; F17.290 Nicotine dependence, other tobacco product, uncomplicated; Z79.899 Other long term (current) drug therapy; Z86.711 Personal history of pulmonary embolism; Z86.718 Personal history of other venous thrombosis and embolism; F32.A Depression, unspecified
CPT/HCPCS: 36415; 80053; 80307; 81001; 83605; 83690; 84703; 85025; 94668; 96361; 96374; 96375; 96376; 99221; 99284; 99406; J7030; A4216; G0378; J2405

== ENCOUNTER 2023-06-30 22:06 | Emergency (ER) | payer MEDICARE, SELFPAY ==
[2023-06-30 22:08] VITALS: BP 132/90; PULSE 91; RESP 18; TEMP 36.6; O2SAT 99; BMI 38.2
--- NOTE | 2023-06-30 22:30 | EDS_ITS ---
HPI HPI - GI History of Present Illness Chief Complaint: Abd Pain Informant: patient Narrative Narrative: Patient has had a flareup of chronic symptoms today, upper abdominal pain radiating into the back and occasionally the right shoulder, vomiting, diarrhea occasionally with some black in it today no blood. She has a history of pancreatitis that she states is from unknown etiology, she has been having symptoms and flareups since January, she has been diagnosed with several pseudocysts up to 5 cm or so as last imaged she states about a month ago, following with specialists in the system, has appointment next week with them in addition to an MRCP for reevaluation. She was admitted here this past week for acute pancreatitis, treated medically with medications, fluids, n.p.o. status, she states she was doing better since she was discharged, her symptoms never go away, but flared up again today. She was trying to eat more normal foods last couple days. No alcohol. Status postcholecystectomy. Has history of GI bleeds but states she is usually seen blood, she is on Xarelto because of history of DVT and PE and has an IVC filter. Patient states she went to [facility] prior to this, and according to the patient, they said they cannot offer me help for this anymore, and that I should go to [facility] or [place]. [facility] Medical History Anxiety Chronic constipation Chronic diastolic HF (heart failure) Depression Depression DVT (deep venous thrombosis) Epilepsy Factor V Leiden mutation Former smoker GERD (gastroesophageal reflux disease) History of CVA (cerebrovascular accident) History of pancreatitis History of pulmonary embolus (PE) Hyperlipidemia Hypertension Pancreatitis Presence of IVC filter Pulmonary embolism Seizure disorder Stroke/cerebrovascular accident Substance abuse Vitamin D deficiency Home Medications furosemide 40 mg tablet 40 mg PO DAILY water pill 09/10/16 [History Last Taken 02/05/23] potassium chloride 10 mEq tablet,extended release(part/cryst) 20 meq PO TID supplment 09/10/16 [History Last Taken 02/05/23] valacyclovir 500 mg tablet (Valtrex) 500 mg PO DAILY herpes 10/25/18 [History Last Taken 02/05/23] melatonin 3 mg capsule 10 mg PO QHS sleep 05/26/19 [History Last Taken 09/08/19] magnesium oxide 600 mg PO DAILY supplement 10/09/20 [History Last Taken Unknown] linaclotide 290 mcg capsule (Linzess) 290 mcg PO DAILY bowels 05/28/21 [History Last Taken 02/05/23] ascorbic acid (vitamin C) 1,000 mg tablet (Vitamin C) 1 g PO DAILY supplement 12/03/21 [History Last Taken 02/05/23] clonazepam 0.5 mg tablet (Klonopin) 0.5 mg PO BID PRN Seizures 12/03/21 [History Last Taken Unknown] clonidine HCl 0.2 mg tablet 0.2 mg PO QHS anxiety 12/03/21 [History Last Taken 02/04/23] methenamine hippurate 1 gram tablet (Hiprex) 1 g PO QHS bladder infections 12/03/21 [History Last Taken 02/04/23] metoprolol tartrate 25 mg tablet 25 mg PO DAILY heart rate 12/03/21 [History Last Taken 02/05/23] venlafaxine 150 mg capsule,extended release 24 hr (Effexor XR) 225 mg PO QHS mood 12/03/21 [History Last Taken 02/04/23] rivaroxaban 10 mg tablet (Xarelto) 10 mg PO DAILY blood thinner 07/07/22 [History Last Taken 02/05/23] cholecalciferol (vitamin D3) 1,250 mcg (50,000 unit) capsule 50,000 unit PO FR supplement 02/05/23 [History Last Taken 02/04/23] lacosamide 100 mg tablet (Vimpat) 100 mg PO DAILY seizures 02/05/23 [History Last Taken 02/05/23] lacosamide 200 mg tablet (Vimpat) 200 mg PO QHS seizures 02/05/23 [History Last Taken 02/04/23] lactulose 10 gram/15 mL oral solution 15 ml PO BID PRN PRN Constipation 02/05/23 [History Last Taken Unknown] ropinirole 0.5 mg tablet 0.5 mg PO BID restless legs 02/05/23 [History Last Taken 02/05/23] qnyzeweyfo-abtnnbysohzyk-hxogkfda 50 mg-325 mg-40 mg capsule 1 cap PO Q6H PRN pain 02/23/23 [History Last Taken Unknown] omeprazole 40 mg capsule,delayed release 40 mg PO BID 02/23/23 [History Last Taken Unknown] ondansetron 4 mg disintegrating tablet 4 mg PO Q6H 02/23/23 [History Last Taken Unknown] fenofibrate nanocrystallized 145 mg tablet 145 mg PO QHS 05/07/23 [History Last Taken Unknown] wnmnec-zuvicmzz-tvzabzy 12,000-38,000-60,000 unit capsule,delayed rel (Creon) 3 cap PO TID 05/07/23 [History Last Taken Unknown] nitrofurantoin monohydrate/macrocrystals 100 mg capsule (Macrobid) 100 mg PO DAILY PRN after sex 05/07/23 [History Last Taken Unknown] promethazine 25 mg tablet 25 mg PO Q12H PRN nausea and vomiting 05/07/23 [History Last Taken Unknown] aripiprazole 10 mg tablet 10 mg PO DAILY 06/23/23 [History Last Taken Unknown] benztropine 0.5 mg tablet 0.5 mg PO BID 06/23/23 [History Last Taken Unknown] divalproex 250 mg tablet,delayed release 250 mg PO Q12H 06/23/23 [History Last Taken Unknown] oxycodone 10 mg tablet 10 mg PO Q6H PRN pain 3 days #12 tabs 06/26/23 [Rx Last Taken Unknown] ondansetron 4 mg disintegrating tablet 8 mg (2 x 4 mg) PO Q8H PRN PRN Nausea #20 tabs 07/01/23 [Rx Last Taken Unknown] Allergy/AdvReac Type Severity Reaction Status Date / Time gabapentin [From Neurontin] Allergy Rash Verified 06/30/23 22:10 morphine Allergy HYPOTENSION Verified 06/30/23 22:10 Penicillins Allergy Rash Verified 06/30/23 22:10 Sulfa (Sulfonamide Allergy Rash Verified 06/30/23 22:10 Antibiotics) Family History Mother Hypertension Hyperlipidemia Father Heart disease Surgical History H/O: History of appendectomy History of embolic filter insertion History of hysterectomy Hx of cholecystectomy Social History household members: none Smoking Status: Current every day smoker tobacco type: e-cigarettes and smokeless tobacco alcohol intake: former substance use type: marijuana ROS ROS ED Constitutional Constitutional ED: Denies chills or fever(s) Eyes Eyes: Denies change in vision or diplopia ENT ENT ED: Denies rhinorrhea or sore throat Cardiovascular Cardiovascular: Denies chest pain, palpitations or syncope Respiratory/Chest Respiratory/Chest: Denies cough or dyspnea Gastrointestinal Gastrointestinal: Reports abdominal pain, diarrhea, nausea, vomiting and other Details: Some black in my diarrhea Genitourinary Genitourinary ED: Denies dysuria or hematuria Musculoskeletal Musculoskeletal: Denies back pain or neck pain Integumentary Denies abscess or rash Neurologic Neurologic: Denies headache(s), paresthesias or weakness Psychiatric Psychiatric: Denies anxiety or suicidal thoughts EXAM Physical Exam Const Vital Signs: 06/30/23 22:08 07/01/23 00:07 Temperature 97.9 F Temperature Source Temporal Pulse Rate 91 Respiratory Rate 18 16 Blood Pressure 132/90 H Blood Pressure Mean 104 Pulse Ox 99 Oxygen Delivery Method Room Air Positive well nourished, well developed and obese General Appearance ED: well developed and NAD Nutritional Appearance: obese HEENT Reports moist mucous membranes normocephalic and atraumatic Eyes PERRL and EOMs intact bilaterally Neck full ROM and supple Resp normal respiratory effort and clear to auscultation bilaterally Cardio regular rate, regular rhythm and no murmurs Rate: Negative for tachycardic GI non-distended GI Narrative: Epigastric tenderness more than right upper quadrant otherwise benign abdomen. No guarding or rebound. Auscultation: normoactive bowel sounds Palpation: soft Back/Spine no CVA tenderness General Back: other FROM Extremity normal to inspection General Extremety ED: Negative for edema, pulses abnormal or tenderness General Extremity: Negative for edema or pulses abnormal Neuro oriented x3, CN's II-XII intact bilaterally and no sensory deficits noted Sensorium / Orientation: awake and alert Motor Exam: strength 5/5 throughout Skin no rashes or lesions noted and no wounds MDM MDM MDM Narrative Medical decision making narrative: Work the patient up she has not mild nonspecific leukocytosis and a normal lipase and other liver enzymes. She was given IV fentanyl and she has a morphine allergy, although she appears comfortable on reevaluation after that IV fluids Zofran, she states that the pain medication did not help at all. She states she itches with morphine and was hypotensive in the past, but tolerates hydromorphone without any difficulty. I advised her that admission is not warranted at this time given that she does not have acute pancreatitis and she is simply in need of symptom control, and she is able to keep down oral fluids, and follow-up for her repeat MRCP and further pseudocyst reevaluation, I do not think there is need to be reevaluated emergently. She is in agreement and understands this, I am okay given her single dose of hydromorphone for more pain relief prior to discharge with prescription for Zofran she is comfortable with that plan as well. Lab Data Attestation: I reviewed the patient's lab results. Labs: Laboratory Results - last 24 hr 06/30/23 06/30/23 22:50 23:15 WBC 13.3 H RBC 4.19 L Hgb 12.3 Hct 37.7 MCV 90.0 MCH 29.4 MCHC 32.6 RDW Std Deviation 44.5 H RDW Coeff of Megan 13.6 Plt Count 353 MPV 8.5 Immature Gran % (Auto) 0.600 Neut % (Auto) 71.0 H Lymph % (Auto) 19.4 [place] % (Auto) 6.6 Eos % (Auto) 1.8 Baso % (Auto) 0.6 Absolute Neuts (auto) 9.4 H Absolute Lymphs (auto) 2.57 Nucleated RBC % 0 Sodium 133 L Potassium 4.0 Chloride 103 Carbon Dioxide 22.0 Anion Gap 8 BUN 12 Creatinine 0.90 Estim Creat Clear Calc 63.24 Est GFR (MDRD) Af Amer 86 Est GFR (MDRD) Non-Af 71 BUN/Creatinine Ratio 13.4 Glucose 142 H Calcium 9.0 Total Bilirubin 0.10 L AST 22 ALT 50 Alkaline Phosphatase 84 Total Protein 7.1 Albumin 3.2 Globulin 3.9 Albumin/Globulin Ratio 0.8 L Lipase 67 Discharge Plan Triage Chief Complaint: Abd Pain ED Provider: Ranjan Parra Dx/Rx/DC Orders Clinical Impression: Acute epigastric pain, Pancreatitis, chronic, Nausea vomiting and diarrhea Instructions: Pancreatitis Chronic Dc Prescriptions: New ondansetron [ondansetron] 4 mg tablet,disintegrating 8 mg PO Q8H PRN PRN (Reason: Nausea) Qty: 20 0RF No Action ondansetron 4 mg tablet,disintegrating 4 mg PO Q6H omeprazole 40 mg capsule,delayed release(DR/EC) 40 mg PO BID cbetgkffvy-ppqnzoskhprhg-xxlf 50-325-40 mg capsule 1 cap PO Q6H PRN (Reason: pain) furosemide 40 MG tablet 40 mg PO DAILY potassium chloride 10 MEQ tablet 20 meq PO TID valacyclovir [Valtrex] 500 MG tablet 500 mg PO DAILY melatonin 3 MG capsule 10 mg PO QHS magnesium oxide 200 MG tablet 600 mg PO DAILY Linzess 290 mcg capsule 290 mcg PO DAILY Patient Comments: take 1 capsule by mouth once daily clonidine HCl 0.2 mg Tablet 0.2 mg PO QHS methenamine hippurate [Hiprex] 1 gram Tablet 1 g PO QHS ascorbic acid (vitamin C) [Vitamin C] 1,000 mg Tablet 1 g PO DAILY clonazepam [Klonopin] 0.5 mg Tablet 0.5 mg PO BID PRN (Reason: Seizures) venlafaxine [Effexor XR] 150 mg Capsule,Extended Release 24hr 225 mg PO QHS metoprolol tartrate 25 mg Tablet 25 mg PO DAILY Xarelto 10 mg tablet 10 mg PO DAILY ropinirole 0.5 mg Tablet 0.5 mg PO BID lactulose 10 gram/15 mL Solution 15 ml PO BID PRN PRN (Reason: Constipation) cholecalciferol (vitamin D3) 1,250 mcg (50,000 unit) capsule 50,000 unit PO FR Patient Comments: TAKE 1 CAPSULE BY MOUTH EVERY WEEK lacosamide [Vimpat] 100 mg Tablet 100 mg PO DAILY lacosamide [Vimpat] 200 mg Tablet 200 mg PO QHS aripiprazole 10 mg tablet 10 mg PO DAILY benztropine 0.5 mg tablet 0.5 mg PO BID Patient Comments: TAKE 1 TABLET BY MOUTH TWICE DAILY As Needed for eps divalproex 250 mg tablet,delayed release (DR/EC) 250 mg PO Q12H Patient Comments: TAKE 1 TABLET TWICE DAILY for mood oxycodone 10 mg tablet 10 mg PO Q6H PRN (Reason: pain) 3 Days Qty: 12 0RF Creon 12,000-38,000 -60,000 unit capsule,delayed release(DR/EC) 3 cap PO TID Rx Instructions: administer with meals and/or snacks fenofibrate nanocrystallized 145 mg tablet 145 mg PO QHS nitrofurantoin monohyd/m-cryst [Macrobid] 100 mg capsule 100 mg PO DAILY PRN (Reason: after sex) promethazine 25 mg tablet 25 mg PO Q12H PRN (Reason: nausea and vomiting) Patient Comments: TAKE 1 TABLET BY MOUTH TWICE DAILY Primary Care Provider: Rin Rivera NP Referrals: Rin Rivera NP, [employer]INCIPAL-[facility] [Primary Care Provider] - Doctor,Your [Non-Staff] - Keep Eliecer appointment Disposition Disposition: Home, Self Care
[2023-06-30] MEDS: 0.9% Normal Saline (1000mL) 1,000 ML 1000 ML IV (23:03)
[2023-06-30] MEDS: fentaNYL 100 MCG/2 ML Ampul 75 MCG IV (23:03)
[2023-06-30] MEDS: Ondansetron 4 MG/2 ML Vial IV (23:04)
[2023-06-30 23:24] LABS: Absolute Lymphocyte Count 2.57 X10^3/uL (0.83-4.51); Absolute Neutrophil Count 9.4 X10^3/uL (2.0-7.7); Basophil# 0.08 X10^3/uL; Basophil% 0.6 % (0-1); Eosinophil# 0.24 X10^3/uL; Eosinophils% 1.8 % (0-5); Hematocrit 37.7 % (37-47); Hemoglobin 12.3 g/dL (12.0-15.0); Lymphocyte # 2.57 X10^3/ul (0.83-4.51); Lymphocyte % 19.4 % (19-41); Mean Corp Hgb Conc 32.6 g/dL (32-36); Mean Corpuscular Hgb 29.4 pg (27.0-32.0); Mean Platelet Vol. 8.5 fl (6.2-12.0); Monocyte# 0.87 X10^3/uL; Monocyte% 6.6 % (0-10); NRBC Flagged by Analyzer 0 % (0-5); Neutrophil # 9.41 X10^3/uL (2.7-7.7); Platelet Count 353 K/mm3 (150-450); RBC Distribution Width CV 13.6 % (11.6-14.6); RBC Distribution Width SD 44.5 fl (35.1-43.9); Red Blood Count 4.19 M/mm3 (4.2-5.4); White Blood Count 13.3 K/mm3 (4.4-11.0)
[2023-06-30 23:32] LABS: ALB/GLOB Ratio 0.8 RATIO (0.9-2.4); AST(SGOT) 22 U/L (15-37); Alanine Aminotransfer ALT/SGPT 50 U/L (13-56); Albumin, Serum 3.2 g/dL (3.2-5.0); Alkaline Phosphatase 84 U/L (45-117); Anion Gap 8 (5-15); BUN 12 mg/dL (7-18); BUN/Creat Ratio 13.4 RATIO (10-20); Chloride 103 mmol/L (98-107); EST Glomerular Filtration Rate 71 mL/min (>60); Est Glom Filt Rate - Afr Amer 86 mL/min (>60); Estimated Creatinine Clearance 63.24 ml/min; Globulin 3.9 g/dL (2.2-4.2); Glucose 142 mg/dL (74-106); Lipase 67 U/L (13-75); Protein, Total 7.1 g/dL (6.4-8.2); Sodium Level 133 mmol/L (136-145)
[2023-07-01 00:07] VITALS: RESP 16
[2023-07-01] MEDS: HYDROmorphone 1 MG/ML Syringe IV (01:08)
[2023-07-01 01:20] VITALS: BP 128/85; PULSE 86; RESP 16; O2SAT 99
== END 2023-07-01 01:21 | disposition home or self-care (01) ==
PROVIDERS: Emergency Provider Emergency Medicine; PCP Nurse Practitioner Family; Visit Provider Emergency Medicine
DX: K86.1 Other chronic pancreatitis (principal); I11.0 Hypertensive heart disease with heart failure; I50.32 Chronic diastolic (congestive) heart failure; R10.13 Epigastric pain; R19.7 Diarrhea, unspecified; E78.5 Hyperlipidemia, unspecified; R11.2 Nausea with vomiting, unspecified; F12.90 Cannabis use, unspecified, uncomplicated; F17.220 Nicotine dependence, chewing tobacco, uncomplicated; Z86.73 Personal history of transient ischemic attack (TIA), and cerebral infarction without residual deficits; Z86.711 Personal history of pulmonary embolism
CPT/HCPCS: 80053; 83690; 85025; 96361; 96374; 96375; 99282; J7030; A4216; J2405

== ENCOUNTER 2023-07-03 20:51 | Emergency (ER) | payer MEDICARE, SELFPAY ==
[2023-07-03 20:52] VITALS: BP 118/84; PULSE 81; RESP 18; TEMP 36.2; O2SAT 99; BMI 38.6
[2023-07-03] MEDS: 0.9% Normal Saline (1000mL) 1,000 ML 999 ML IV ×2 (21:54→23:32)
[2023-07-03] MEDS: Ondansetron 4 MG/2 ML Vial IV (21:55)
[2023-07-03] MEDS: HYDROmorphone 1 MG/ML Syringe 0.5 MG IV (21:56)
--- NOTE | 2023-07-03 23:26 | EX.ED.DYSGE1 ---
HPI History of Present Illness Chief Complaint: Abd Pain Informant: patient Narrative Narrative: 47-year-old female history of pancreatitis with pancreatic pseudocyst. Patient is presenting with nausea and upper abdominal pain. She states that this is consistent with her pain that she gets from her pseudocyst. She is in pain management awaiting infusion therapy. She is to see gastroenterology later this week. The patient states there is really nothing new with her symptoms other than an increase in pain. She denies any syncope, fevers, bruising around her abdomen or back. Her pancreatic care has been through [facility], [place], operated by [facility]. She is anticoagulated on Xarelto due to hypercoagulable state. The patient notes that she is a very difficult blood draw and is awaiting getting a port placement. [facility] Medical History Anxiety Chronic constipation Chronic diastolic HF (heart failure) Depression Depression DVT (deep venous thrombosis) Epilepsy Factor V Leiden mutation Former smoker GERD (gastroesophageal reflux disease) History of CVA (cerebrovascular accident) History of pancreatitis History of pulmonary embolus (PE) Hyperlipidemia Hypertension Pancreatitis Presence of IVC filter Pulmonary embolism Seizure disorder Stroke/cerebrovascular accident Substance abuse Vitamin D deficiency Home Medications furosemide 40 mg tablet 40 mg PO DAILY water pill 09/10/16 [History Last Taken 02/05/23] potassium chloride 10 mEq tablet,extended release(part/cryst) 20 meq PO TID supplment 09/10/16 [History Last Taken 02/05/23] valacyclovir 500 mg tablet (Valtrex) 500 mg PO DAILY herpes 10/25/18 [History Last Taken 02/05/23] melatonin 3 mg capsule 10 mg PO QHS sleep 05/26/19 [History Last Taken 09/08/19] linaclotide 290 mcg capsule (Linzess) 290 mcg PO DAILY bowels 05/28/21 [History Last Taken 02/05/23] ascorbic acid (vitamin C) 1,000 mg tablet (Vitamin C) 1 g PO DAILY supplement 12/03/21 [History Last Taken 02/05/23] clonazepam 0.5 mg tablet (Klonopin) 0.5 mg PO BID PRN Seizures 12/03/21 [History Last Taken Unknown] methenamine hippurate 1 gram tablet (Hiprex) 1 g PO QHS bladder infections 12/03/21 [History Last Taken 02/04/23] metoprolol tartrate 25 mg tablet 25 mg PO DAILY heart rate 12/03/21 [History Last Taken 02/05/23] venlafaxine 150 mg capsule,extended release 24 hr (Effexor XR) 225 mg PO QHS mood 12/03/21 [History Last Taken 02/04/23] rivaroxaban 10 mg tablet (Xarelto) 10 mg PO DAILY blood thinner 07/07/22 [History Last Taken 02/05/23] cholecalciferol (vitamin D3) 1,250 mcg (50,000 unit) capsule 50,000 unit PO FR supplement 02/05/23 [History Last Taken 02/04/23] lacosamide 100 mg tablet (Vimpat) 100 mg PO DAILY seizures 02/05/23 [History Last Taken 02/05/23] lacosamide 200 mg tablet (Vimpat) 200 mg PO QHS seizures 02/05/23 [History Last Taken 02/04/23] lactulose 10 gram/15 mL oral solution 15 ml PO BID PRN PRN Constipation 02/05/23 [History Last Taken Unknown] ropinirole 0.5 mg tablet 0.5 mg PO BID restless legs 02/05/23 [History Last Taken 02/05/23] omeprazole 40 mg capsule,delayed release 40 mg PO BID 02/23/23 [History Last Taken Unknown] ondansetron 4 mg disintegrating tablet 4 mg PO Q6H 02/23/23 [History Last Taken Unknown] fenofibrate nanocrystallized 145 mg tablet 145 mg PO QHS 05/07/23 [History Last Taken Unknown] nitrofurantoin monohydrate/macrocrystals 100 mg capsule (Macrobid) 100 mg PO DAILY PRN after sex 05/07/23 [History Last Taken Unknown] promethazine 25 mg tablet 25 mg PO Q12H PRN nausea and vomiting 05/07/23 [History Last Taken Unknown] aripiprazole 10 mg tablet 10 mg PO DAILY 06/23/23 [History Last Taken Unknown] benztropine 0.5 mg tablet 0.5 mg PO BID 06/23/23 [History Last Taken Unknown] divalproex 250 mg tablet,delayed release 250 mg PO Q12H 06/23/23 [History Last Taken Unknown] Allergy/AdvReac Type Severity Reaction Status Date / Time gabapentin [From Neurontin] Allergy Rash Verified 07/03/23 20:51 Penicillins Allergy Rash Verified 07/03/23 20:51 Sulfa (Sulfonamide Allergy Rash Verified 07/03/23 20:51 Antibiotics) Family History Mother Hypertension Hyperlipidemia Father Heart disease Surgical History H/O: History of appendectomy History of embolic filter insertion History of hysterectomy Hx of cholecystectomy Social History household members: none Smoking Status: Current every day smoker tobacco type: e-cigarettes and smokeless tobacco alcohol intake: former substance use type: marijuana ROS ROS ED Constitutional Constitutional ED: Denies chills, fever(s) or weight loss Eyes Eyes: Denies change in vision or diplopia ENT ENT ED: Denies ear pain, rhinorrhea or sore throat Cardiovascular Cardiovascular: Denies chest pain, orthopnea, palpitations or racing heartbeat Respiratory/Chest Respiratory/Chest: Denies cough, dyspnea or orthopnea Gastrointestinal Gastrointestinal: Reports diarrhea, nausea and vomiting; Denies abdominal pain Genitourinary Genitourinary ED: Denies dysuria, hematuria or urinary frequency Musculoskeletal Musculoskeletal: Denies arthralgias or myalgias Integumentary Denies abscess or rash Neurologic Neurologic: Denies headache(s) or weakness Psychiatric Psychiatric: Denies anxiety, depression, suicidal ideation or suicidal thoughts Endocrine Endocrinology: Denies polydipsia, polyphagia or polyuria Allergic/Immunologic Allergic/Immunologic ED: Denies mouth swelling, tongue swelling or urticaria EXAM Physical Exam Const Vital Signs: 07/03/23 20:52 Temperature 97.2 F L Temperature Source Temporal Pulse Rate 81 Respiratory Rate 18 Blood Pressure 118/84 H Blood Pressure Mean 95 Pulse Ox 99 Oxygen Delivery Method Room Air Positive well nourished and well developed General Appearance ED: well developed HEENT Reports normocephalic, head/scalp atraumatic and moist mucous membranes Eyes PERRL and EOMs intact bilaterally Neck no lymphadenopathy, supple and no JVD Resp normal respiratory effort and clear to auscultation bilaterally Cardio regular rate, regular rhythm and no murmurs GI Inspection: Negative for abdominal distention Auscultation: normoactive bowel sounds Palpation: soft and tender epigastric; Negative for guarding or rebound tenderness present Back/Spine no CVA tenderness and normal ROM Extremity normal to inspection General Extremety ED: Negative for edema General Extremity: Negative for edema Neuro oriented x3 and CN's II-XII intact bilaterally Sensorium / Orientation: alert Motor Exam: strength 5/5 throughout Psych mental status grossly normal Mood & Affect: Negative for depressed or tearful Skin no rashes or lesions noted and no wounds MDM MDM MDM Narrative Medical decision making narrative: Patient received IV fluids Dilaudid Zofran. Unable to obtain blood after multiple attempts by nursing and lab. We are going to treat symptomatically. I discussed this with the patient and she states this is understandable. She would like to have some additional IV fluids and pain medication. After that patient will be discharged home to follow-up with her doctors. Discharge Plan Triage Chief Complaint: Abd Pain ED Provider: Angel López Dx/Rx/DC Orders Clinical Impression: Pancreatitis, chronic, Abdominal pain, chronic, epigastric Instructions: ED Pancreatitis Prescriptions: No Action ondansetron 4 mg tablet,disintegrating 4 mg PO Q6H omeprazole 40 mg capsule,delayed release(DR/EC) 40 mg PO BID furosemide 40 MG tablet 40 mg PO DAILY potassium chloride 10 MEQ tablet 20 meq PO TID valacyclovir [Valtrex] 500 MG tablet 500 mg PO DAILY melatonin 3 MG capsule 10 mg PO QHS Linzess 290 mcg capsule 290 mcg PO DAILY Patient Comments: take 1 capsule by mouth once daily methenamine hippurate [Hiprex] 1 gram Tablet 1 g PO QHS ascorbic acid (vitamin C) [Vitamin C] 1,000 mg Tablet 1 g PO DAILY clonazepam [Klonopin] 0.5 mg Tablet 0.5 mg PO BID PRN (Reason: Seizures) venlafaxine [Effexor XR] 150 mg Capsule,Extended Release 24hr 225 mg PO QHS metoprolol tartrate 25 mg Tablet 25 mg PO DAILY Xarelto 10 mg tablet 10 mg PO DAILY ropinirole 0.5 mg Tablet 0.5 mg PO BID lactulose 10 gram/15 mL Solution 15 ml PO BID PRN PRN (Reason: Constipation) cholecalciferol (vitamin D3) 1,250 mcg (50,000 unit) capsule 50,000 unit PO FR Patient Comments: TAKE 1 CAPSULE BY MOUTH EVERY WEEK lacosamide [Vimpat] 100 mg Tablet 100 mg PO DAILY lacosamide [Vimpat] 200 mg Tablet 200 mg PO QHS aripiprazole 10 mg tablet 10 mg PO DAILY benztropine 0.5 mg tablet 0.5 mg PO BID Patient Comments: TAKE 1 TABLET BY MOUTH TWICE DAILY As Needed for eps divalproex 250 mg tablet,delayed release (DR/EC) 250 mg PO Q12H Patient Comments: TAKE 1 TABLET TWICE DAILY for mood fenofibrate nanocrystallized 145 mg tablet 145 mg PO QHS nitrofurantoin monohyd/m-cryst [Macrobid] 100 mg capsule 100 mg PO DAILY PRN (Reason: after sex) promethazine 25 mg tablet 25 mg PO Q12H PRN (Reason: nausea and vomiting) Patient Comments: TAKE 1 TABLET BY MOUTH TWICE DAILY Primary Care Provider: Rin Rivera NP Referrals: Rin Rivera NP, [employer] [Primary Care Provider] - As Needed Disposition Disposition: Home, Self Care
[2023-07-03] MEDS: HYDROmorphone 0.5 MG/0.5 ML SYRINGE IV (23:32)
[2023-07-03 23:46] VITALS: BP 116/88; PULSE 88; RESP 16; TEMP 36.6; O2SAT 98
== END 2023-07-04 00:41 | disposition home or self-care (01) ==
PROVIDERS: Emergency Provider Emergency Medicine; PCP Nurse Practitioner Family; Visit Provider Emergency Medicine
DX: K86.1 Other chronic pancreatitis (principal); I11.0 Hypertensive heart disease with heart failure; I50.32 Chronic diastolic (congestive) heart failure; D68.59 Other primary thrombophilia; E78.5 Hyperlipidemia, unspecified; F12.90 Cannabis use, unspecified, uncomplicated; F17.220 Nicotine dependence, chewing tobacco, uncomplicated; R11.0 Nausea; R10.13 Epigastric pain; G89.29 Other chronic pain
CPT/HCPCS: 96361; 96374; 96375; 96376; 99283; J7030; A4216; J2405

== ENCOUNTER 2023-07-07 12:22 | Observation (INO) | payer MEDICARE, SELFPAY ==
[2023-07-07] VITALS (7 sets, daily range): BP systolic 112–134; BP diastolic 74–83; PULSE 72–98; RESP 14–18; TEMP 36.2–36.5; O2SAT 96–98; BMI 37.6
--- NOTE | 2023-07-07 14:01 | ED.VIS.GI ---
HPI HPI - GI History of Present Illness Chief Complaint: Abd Pain Informant: patient Narrative Narrative: Waxing waning abdominal pain with nausea over the past week. History of pancreatitis. No alcohol since 2013. She is followed by GI through , she reported referred to pain management at [facility] due to being a patient, she tried going to the office 2 days ago reported was not seen by the staff due to difficulty with IV establishment for blood draw. She went to the ED at [facility], she had a CT scan on her phone noting pseudocyst x2. She states she was seen here in January and admitted without cyst. She developed cyst in February or March. She states her PCP is trying to refer her for a med port. However increasing pain since being seen 2 days ago. She states her pain was improved with medications therefore it was discharged. She runs her also for 3 of 5 5 blood did with PE and DVT. [facility] Medical History Anxiety Chronic constipation Chronic diastolic HF (heart failure) Depression Depression DVT (deep venous thrombosis) Epilepsy Factor V Leiden mutation Former smoker GERD (gastroesophageal reflux disease) History of CVA (cerebrovascular accident) History of pancreatitis History of pulmonary embolus (PE) Hyperlipidemia Hypertension Pancreatitis Pancreatitis Presence of IVC filter Pulmonary embolism Seizure disorder Stroke/cerebrovascular accident Substance abuse Vitamin D deficiency Home Medications furosemide 40 mg tablet 40 mg PO DAILY water pill 09/10/16 [History Last Taken 02/05/23] potassium chloride 10 mEq tablet,extended release(part/cryst) 20 meq PO TID supplment 09/10/16 [History Last Taken 02/05/23] valacyclovir 500 mg tablet (Valtrex) 500 mg PO DAILY herpes 10/25/18 [History Last Taken 02/05/23] melatonin 3 mg capsule 10 mg PO QHS sleep 05/26/19 [History Last Taken 09/08/19] linaclotide 290 mcg capsule (Linzess) 290 mcg PO DAILY bowels 05/28/21 [History Last Taken 02/05/23] ascorbic acid (vitamin C) 1,000 mg tablet (Vitamin C) 1 g PO DAILY supplement 12/03/21 [History Last Taken 02/05/23] clonazepam 0.5 mg tablet (Klonopin) 0.5 mg PO BID PRN Seizures 12/03/21 [History Last Taken Unknown] methenamine hippurate 1 gram tablet (Hiprex) 1 g PO QHS bladder infections 12/03/21 [History Last Taken 02/04/23] metoprolol tartrate 25 mg tablet 25 mg PO Q12H heart rate 12/03/21 [History Last Taken 02/05/23] venlafaxine 150 mg capsule,extended release 24 hr (Effexor XR) 225 mg PO QHS mood 12/03/21 [History Last Taken 02/04/23] rivaroxaban 10 mg tablet (Xarelto) 10 mg PO DAILY blood thinner 07/07/22 [History Last Taken 02/05/23] cholecalciferol (vitamin D3) 1,250 mcg (50,000 unit) capsule 50,000 unit PO FR supplement 02/05/23 [History Last Taken 02/04/23] lacosamide 100 mg tablet (Vimpat) 100 mg PO DAILY seizures 02/05/23 [History Last Taken 02/05/23] lacosamide 200 mg tablet (Vimpat) 200 mg PO QHS seizures 02/05/23 [History Last Taken 02/04/23] lactulose 10 gram/15 mL oral solution 15 ml PO BID PRN PRN Constipation 02/05/23 [History Last Taken Unknown] ropinirole 0.5 mg tablet 0.5 mg PO BID restless legs 02/05/23 [History Last Taken 02/05/23] omeprazole 40 mg capsule,delayed release 40 mg PO BID 02/23/23 [History Last Taken Unknown] ondansetron 4 mg disintegrating tablet 4 mg PO Q6H PRN nausea 02/23/23 [History Last Taken Unknown] fenofibrate nanocrystallized 145 mg tablet 145 mg PO QHS 05/07/23 [History Last Taken Unknown] nitrofurantoin monohydrate/macrocrystals 100 mg capsule (Macrobid) 100 mg PO DAILY PRN after sex 05/07/23 [History Last Taken Unknown] promethazine 25 mg tablet 25 mg PO Q12H PRN nausea and vomiting 05/07/23 [History Last Taken Unknown] aripiprazole 10 mg tablet 10 mg PO DAILY 06/23/23 [History Last Taken Unknown] benztropine 0.5 mg tablet 0.5 mg PO BID 06/23/23 [History Last Taken Unknown] divalproex 250 mg tablet,delayed release 250 mg PO Q12H 06/23/23 [History Last Taken Unknown] Allergy/AdvReac Type Severity Reaction Status Date / Time gabapentin [From Neurontin] Allergy Rash Verified 07/07/23 12:23 Penicillins Allergy Rash Verified 07/07/23 12:23 Sulfa (Sulfonamide Allergy Rash Verified 07/07/23 12:23 Antibiotics) Family History Mother Hypertension Hyperlipidemia Father Heart disease Surgical History H/O: History of appendectomy History of embolic filter insertion History of hysterectomy Hx of cholecystectomy Social History household members: none Smoking Status: Current every day smoker tobacco type: e-cigarettes and smokeless tobacco alcohol intake: former substance use type: marijuana ROS ROS ED Constitutional Constitutional ED: Denies chills, fever(s) or sweats Eyes Eyes: Denies change in vision ENT ENT ED: Denies dysphagia or sore throat Cardiovascular Cardiovascular: Denies chest pain, leg edema, palpitations or racing heartbeat Respiratory/Chest Respiratory/Chest: Denies cough, dyspnea or dyspnea on exertion Gastrointestinal Gastrointestinal: Reports abdominal pain and nausea; Denies diarrhea or vomiting Genitourinary Genitourinary ED: Denies dysuria, hematuria or urinary frequency Musculoskeletal Musculoskeletal: Denies back pain, extremity pain or neck pain Integumentary Denies rash or wounds Neurologic Neurologic: Denies headache(s), paresthesias or weakness EXAM Physical Exam Const Vital Signs: 07/07/23 12:23 Temperature 97.6 F L Temperature Source Temporal Pulse Rate 98 Respiratory Rate 14 Blood Pressure 134/76 H Blood Pressure Mean 95 Pulse Ox 98 Oxygen Delivery Method Room Air Positive well nourished and well developed General Appearance ED: well developed and NAD HEENT Reports moist mucous membranes normocephalic and atraumatic Eyes PERRL, EOMs intact bilaterally and conjunctivae normal General Eye ED: Yes normal appearance of both eyes Neck no lymphadenopathy and supple General: Negative for tenderness Chest Wall Chest: Negative for tenderness Resp normal respiratory effort and normal air movement Effort and Inspection: symmetric chest movement; Negative for respiratory distress Cardio regular rate, regular rhythm and no murmurs Peripheral Pulses: pulses 2+ throughout GI normal to inspection, nondistended, normoactive bowel sounds GI Narrative: Epigastric tenderness, no rebound or guarding. Palpation: Negative for guarding or rebound tenderness present Back/Spine no CVA tenderness and no thoracic nor lumbar tenderness Extremity normal to inspection General Extremety ED: Negative for edema or tenderness General Extremity: Negative for edema Neuro oriented x3 and no sensory deficits noted Sensorium / Orientation: awake and alert Skin no rashes or lesions noted and no wounds MDM MDM MDM Narrative Medical decision making narrative: Interventions / MDM: Differential diagnosis: Pancreatitis, pancreatic pseudocyst, abdominal pain Diagnosis considered but do not suspect: N/A My EKG interpretation: N/A Imaging independently reviewed and interpreted by myself: N/A External documents reviewed: N/A Test considered but not ordered:N/A ED course: Patient increasing pain history of pancreatitis and recent new pseudocyst. Abdominal was were checked, nonsurgical abdomen. Dilaudid Zofran fluids were started. 1500: White count in the slightly above 85 normal liver enzymes. On reevaluation clinically feeling better however still has discomfort. Second visit to ED in 2 days, new pseudocyst on her CT from 2 days ago. Will discuss with hospitalist service for admission. Discussed with Dr. Sanchez for admission. Re-evaluation: stable Disposition discussed with patient/family/significant other: Case discussed with consulting clinician: Hospitalist This note was generated with [employer] dictation software. It may contain incorrect words, spelling, and punctuation that were not noted in checking the note before signing. Lab Data Attestation: I reviewed the patient's lab results. Labs: Laboratory Results - last 24 hr 07/07/23 13:55 WBC 9.6 RBC 4.71 Hgb 13.4 Hct 42.3 MCV 89.8 MCH 28.5 MCHC 31.7 L RDW Std Deviation 43.9 RDW Coeff of Megan 13.3 Plt Count 464 H MPV 8.4 Immature Gran % (Auto) 0.700 Neut % (Auto) 70.7 H Lymph % (Auto) 20.5 [place] % (Auto) 6.0 Eos % (Auto) 1.4 Baso % (Auto) 0.7 Absolute Neuts (auto) 6.8 Absolute Lymphs (auto) 1.97 Nucleated RBC % 0 Sodium 135 L Potassium 3.8 Chloride 101 Carbon Dioxide 26.0 Anion Gap 8 BUN 19 H Creatinine 1.05 H Estim Creat Clear Calc 54.20 Est GFR (MDRD) Af Amer 72 Est GFR (MDRD) Non-Af 59 L BUN/Creatinine Ratio 18.1 Glucose 320 H Calcium 9.5 Total Bilirubin 0.20 AST 19 ALT 47 Alkaline Phosphatase 99 Total Protein 7.9 Albumin 3.6 Globulin 4.3 H Albumin/Globulin Ratio 0.8 L Lipase 85 H Serum , Qual NEGATIVE Discharge Plan Triage Chief Complaint: Abd Pain ED Provider: Alphonso Steward Dx/Rx/DC Orders Primary Care Provider: Rin Rivera NP
[2023-07-07 14:04] LABS: Absolute Lymphocyte Count 1.97 X10^3/uL (0.83-4.51); Absolute Neutrophil Count 6.8 X10^3/uL (2.0-7.7); Basophil# 0.07 X10^3/uL; Basophil% 0.7 % (0-1); Eosinophil# 0.13 X10^3/uL; Eosinophils% 1.4 % (0-5); Hematocrit 42.3 % (37-47); Hemoglobin 13.4 g/dL (12.0-15.0); Lymphocyte # 1.97 X10^3/ul (0.83-4.51); Lymphocyte % 20.5 % (19-41); Mean Corp Hgb Conc 31.7 g/dL (32-36); Mean Corpuscular Hgb 28.5 pg (27.0-32.0); Mean Corpuscular Volume 89.8 fL (81-99); Mean Platelet Vol. 8.4 fl (6.2-12.0); Monocyte# 0.58 X10^3/uL; NRBC Flagged by Analyzer 0 % (0-5); Neutrophil # 6.78 X10^3/uL (2.7-7.7); Neutrophil % 70.7 % (47-70); Platelet Count 464 K/mm3 (150-450); RBC Distribution Width CV 13.3 % (11.6-14.6); RBC Distribution Width SD 43.9 fl (35.1-43.9); Red Blood Count 4.71 M/mm3 (4.2-5.4); White Blood Count 9.6 K/mm3 (4.4-11.0)
[2023-07-07] MEDS: HYDROmorphone 1 MG/ML Syringe IV ×2 (14:10→16:33)
[2023-07-07] MEDS: 0.9% Normal Saline (1000mL) 1,000 ML 150 ML IV (14:10)
[2023-07-07] MEDS: Ondansetron 4 MG/2 ML Vial IV (14:10)
[2023-07-07 14:14] LABS: Internal QC Validated? YES +Cl - CLEAR BKGD; Pregnancy, Serum, hCG Quali. NEGATIVE Negative; Record Kit Lot#, Serum Preg. HCG0000667200
[2023-07-07 14:21] LABS: ALB/GLOB Ratio 0.8 RATIO (0.9-2.4); AST(SGOT) 19 U/L (15-37); Alanine Aminotransfer ALT/SGPT 47 U/L (13-56); Albumin, Serum 3.6 g/dL (3.2-5.0); Alkaline Phosphatase 99 U/L (45-117); Anion Gap 8 (5-15); BUN 19 mg/dL (7-18); BUN/Creat Ratio 18.1 RATIO (10-20); Calcium,Total 9.5 mg/dL (8.5-10.1); Chloride 101 mmol/L (98-107); Creatinine, Serum 1.05 mg/dL (0.55-1.02); EST Glomerular Filtration Rate 59 mL/min (>60); Est Glom Filt Rate - Afr Amer 72 mL/min (>60); Globulin 4.3 g/dL (2.2-4.2); Glucose 320 mg/dL (74-106); Lipase 85 U/L (13-75); Potassium 3.8 mmol/L (3.5-5.1); Protein, Total 7.9 g/dL (6.4-8.2); Sodium Level 135 mmol/L (136-145)
--- NOTE | 2023-07-07 14:37 | CM.ED ---
Social Work Referral Source: case find Referral Reason: care plan SW reviewed patient's chart and provided a copy of patient's care plan to MD Steward to review possible obstacles and solutions regarding care for patient. MD reviewed patient's current medical needs and reports patient will likely be admitted. MD will consult with TIMUR if needs arise. Carmelita HARRISON, SHILO
--- NOTE | 2023-07-07 15:36 | PCM.HP.STD ---
HPI - General General Date of Admission: 07/07/23 Date of Service: 07/07/23 Chief Complaint: Recurrent abdominal pain, nausea. HPI Narrative The patient is a 47 y/o F w/ PMHx: Factor V Leiden mutation w/ Hx VTE (DVT, PE) s/p IVCF placement, HTN, HLD, Seizure disorder, Substance abuse history, Hx CVA, GERD, Depression and Anxiety, recent discharge 06/26/23 following admission for acute pancreatitis on chronic with intractable abdominal pain normally following at [facility] with eventual clinical improvement and discharged home however patient now represents to the [facility] ED on 07/07/23 with again recurrent waxing waning abdominal pain with nausea over the past week since her discharge reporting that she has been referred to pain management at [facility] and tried to go to the office 2 days prior to current presentation but unfortunately she was not seen by staff secondary to IV establishment difficulty with ED evaluation at [facility] with a CT scan with evidence of pseudocyst x2 with planned upcoming med port per PCP however given increasing pain prompted ED evaluation. She currently reports ongoing pain, 6 out of 10 in severity with mild nausea. She states that she did have loose stools for the last 3 days but this seems to have improved. Work-up in the ED included T97.6, heart rate 98, BP 134/76, respiratory rate 14, 98% room air, CBC with WBC 9.6, he 113.4, platelet 464 without marked shift, CMP with sodium 135, BUN/creatinine 19/1.05, glucose 320 otherwise hepatic profile not marked appearing, lipase mildly elevated 85, serum negative. In the ED patient ministered IV Zofran 4 mg IV x1, Dilaudid 1 mg IV x1 and maintenance IV fluids. [facility] Medical History Anxiety Chronic constipation Chronic diastolic HF (heart failure) Depression Depression DVT (deep venous thrombosis) Epilepsy Factor V Leiden mutation Former smoker GERD (gastroesophageal reflux disease) History of CVA (cerebrovascular accident) History of pancreatitis History of pulmonary embolus (PE) Hyperlipidemia Hypertension Pancreatitis Pancreatitis Presence of IVC filter Pulmonary embolism Seizure disorder Stroke/cerebrovascular accident Substance abuse Vitamin D deficiency Home Medications furosemide 40 mg tablet 40 mg PO DAILY water pill 09/10/16 [History Last Taken 02/05/23] potassium chloride 10 mEq tablet,extended release(part/cryst) 20 meq PO TID supplment 09/10/16 [History Last Taken 02/05/23] valacyclovir 500 mg tablet (Valtrex) 500 mg PO DAILY herpes 10/25/18 [History Last Taken 02/05/23] melatonin 3 mg capsule 10 mg PO QHS sleep 05/26/19 [History Last Taken 09/08/19] linaclotide 290 mcg capsule (Linzess) 290 mcg PO DAILY bowels 05/28/21 [History Last Taken 02/05/23] ascorbic acid (vitamin C) 1,000 mg tablet (Vitamin C) 1 g PO DAILY supplement 12/03/21 [History Last Taken 02/05/23] clonazepam 0.5 mg tablet (Klonopin) 0.5 mg PO BID PRN Seizures 12/03/21 [History Last Taken Unknown] methenamine hippurate 1 gram tablet (Hiprex) 1 g PO QHS bladder infections 12/03/21 [History Last Taken 02/04/23] metoprolol tartrate 25 mg tablet 25 mg PO Q12H heart rate 12/03/21 [History Last Taken 02/05/23] venlafaxine 150 mg capsule,extended release 24 hr (Effexor XR) 225 mg PO QHS mood 12/03/21 [History Last Taken 02/04/23] rivaroxaban 10 mg tablet (Xarelto) 10 mg PO DAILY blood thinner 07/07/22 [History Last Taken 02/05/23] cholecalciferol (vitamin D3) 1,250 mcg (50,000 unit) capsule 50,000 unit PO FR supplement 02/05/23 [History Last Taken 02/04/23] lacosamide 100 mg tablet (Vimpat) 100 mg PO DAILY seizures 02/05/23 [History Last Taken 02/05/23] lacosamide 200 mg tablet (Vimpat) 200 mg PO QHS seizures 02/05/23 [History Last Taken 02/04/23] lactulose 10 gram/15 mL oral solution 15 ml PO BID PRN PRN Constipation 02/05/23 [History Last Taken Unknown] ropinirole 0.5 mg tablet 0.5 mg PO BID restless legs 02/05/23 [History Last Taken 02/05/23] omeprazole 40 mg capsule,delayed release 40 mg PO BID 02/23/23 [History Last Taken Unknown] ondansetron 4 mg disintegrating tablet 4 mg PO Q6H PRN nausea 02/23/23 [History Last Taken Unknown] fenofibrate nanocrystallized 145 mg tablet 145 mg PO QHS 05/07/23 [History Last Taken Unknown] nitrofurantoin monohydrate/macrocrystals 100 mg capsule (Macrobid) 100 mg PO DAILY PRN after sex 05/07/23 [History Last Taken Unknown] promethazine 25 mg tablet 25 mg PO Q12H PRN nausea and vomiting 05/07/23 [History Last Taken Unknown] aripiprazole 10 mg tablet 10 mg PO DAILY 06/23/23 [History Last Taken Unknown] benztropine 0.5 mg tablet 0.5 mg PO BID 06/23/23 [History Last Taken Unknown] divalproex 250 mg tablet,delayed release 250 mg PO Q12H 06/23/23 [History Last Taken Unknown] Allergy/AdvReac Type Severity Reaction Status Date / Time gabapentin [From Neurontin] Allergy Rash Verified 07/07/23 12:23 Penicillins Allergy Rash Verified 07/07/23 12:23 Sulfa (Sulfonamide Allergy Rash Verified 07/07/23 12:23 Antibiotics) Family History Mother Hypertension Hyperlipidemia Father Heart disease Surgical History H/O: History of appendectomy History of embolic filter insertion History of hysterectomy Hx of cholecystectomy Social History household members: none Smoking Status: Current every day smoker tobacco type: e-cigarettes and smokeless tobacco alcohol intake: former substance use type: marijuana ROS ROS Narrative Admission Review of Systems: CONSTITUTIONAL: No weight loss, fever, chills, + weakness or fatigue. HEENT: Eyes: No visual loss, blurred vision, double vision or yellow sclerae. Ears, Nose, Throat: No hearing loss, sneezing, congestion, runny nose or sore throat. SKIN: No rash or itching, lesions, wounds. CARDIOVASCULAR: No chest pain, chest pressure or chest discomfort, palpitations, edema, orthopnea, syncopal events. RESPIRATORY: No shortness of breath, cough or sputum, wheezing, hemoptysis. GASTROINTESTINAL: + anorexia, nausea without vomiting, diarrhea, abdominal pain. No melena, BRBPR. GENITOURINARY: No dysuria, frequency, urgency or retention. NEUROLOGICAL: + Chronic headache. Dizziness, syncope, paralysis, ataxia, numbness or tingling in the extremities, focal weakness, change in bowel or bladder control, seizure. MUSCULOSKELETAL: + muscle, back pain, joint pain or stiffness. HEMATOLOGIC: No anemia, + easy bleeding or bruising. LYMPHATICS: No enlarged nodes. No history of splenectomy. PSYCHIATRIC: + history of depression or anxiety. ENDOCRINOLOGIC: No reports of sweating, cold or heat intolerance. No polyuria or polydipsia. ALLERGIES: No history of asthma, hives, eczema or rhinitis. Vital Signs Vital Signs Vital Signs: 07/07/23 12:23 Temperature 97.6 F L Temperature Source Temporal Pulse Rate 98 Respiratory Rate 14 Blood Pressure 134/76 H Blood Pressure Mean 95 Pulse Ox 98 Oxygen Delivery Method Room Air Weight Weight: 212 lb 9.6 oz Body Mass Index (BMI) 37.6 Physical Exam Narrative Physical Examination: General: Awake, alert, oriented x 3 and cooperative, laying in the ED bed, no acute distress, currently still having epigastric pain, no nausea currently. Skin: Normal color, normal turgor, no icterus, no cyanosis. HEENT: AT/NC, EOMI, PERRLA, moderately dry MM, no carotid bruits or JVD noted. Lungs: CTA bilaterally, moderate effort, mild decrease BL bases, no rales, ronchi or wheezing. Heart: Regular rate and rhythm; no gallop, rub audible. Abdomen: Soft, obese, discomfort to epigastric region palpation, less when distracted, more pronounced with voluntary guarding with manual palpation and no distraction,, hyperactive bowel sounds, no obvious distention, difficult to discern HSM given pain with palpation Extremities: No cyanosis, clubbing, or edema. Neurological: Patient awake, alert, oriented as noted, cognitive function intact; pupils equally reactive to light and accommodation, cranial nerves grossly normal, moving all 4 extremities, no focal deficits, strength moderately globally decreased secondary to acute presentation. Psychiatric: Affect appears fatigued, reports discomfort ongoing, no acute evidence of depressive or anxiety feelings but does have notable underlying psychiatric history. Results Lab / Micro Data 07/07/23 13:55 07/07/23 13:55 Labs: Laboratory Results - last 24 hr 07/07/23 13:55: WBC 9.6, RBC 4.71, Hgb 13.4, Hct 42.3, MCV 89.8, MCH 28.5, MCHC 31.7 L, RDW Std Deviation 43.9, RDW Coeff of Megan 13.3, Plt Count 464 H, MPV 8.4, Immature Gran % (Auto) 0.700, Neut % (Auto) 70.7 H, Lymph % (Auto) 20.5, [place] % (Auto) 6.0, Eos % (Auto) 1.4, Baso % (Auto) 0.7, Absolute Neuts (auto) 6.8, Absolute Lymphs (auto) 1.97, Nucleated RBC % 0, Sodium 135 L, Potassium 3.8, Chloride 101, Carbon Dioxide 26.0, Anion Gap 8, BUN 19 H, Creatinine 1.05 H, Estim Creat Clear Calc 54.20, Est GFR (MDRD) Af Amer 72, Est GFR (MDRD) Non-Af 59 L, BUN/Creatinine Ratio 18.1, Glucose 320 H, Calcium 9.5, Total Bilirubin 0.20, AST 19, ALT 47, Alkaline Phosphatase 99, Total Protein 7.9, Albumin 3.6, Globulin 4.3 H, Albumin/Globulin Ratio 0.8 L, Lipase 85 H, Serum , Qual NEGATIVE Assessment & Plan Assessment/Plan (1) Abdominal pain, chronic, epigastric: PLAN: Plan The patient is a 47 y/o F w/ PMHx: Factor V Leiden mutation w/ Hx VTE (DVT, PE) s/p IVCF placement, HTN, HLD, Seizure disorder, Substance abuse history, Hx CVA, GERD, Depression and Anxiety, recent discharge 06/26/23 following admission for acute pancreatitis on chronic with intractable abdominal pain normally following at [facility] with eventual clinical improvement and discharged home however patient now represents to the [facility] ED on 07/07/23 with again recurrent waxing waning abdominal pain with nausea over the past week since her discharge reporting that she has been referred to pain management at [facility] and tried to go to the office 2 days prior to current presentation but unfortunately she was not seen by staff secondary to IV establishment difficulty with ED evaluation at [facility] with a CT scan with evidence of pseudocyst x2 with planned upcoming med port per PCP however given increasing pain prompted ED evaluation. #1. Intractable Abdominal pain, possibly secondary to recurrent Acute on Chronic pancreatitis: Will admit to [facility], maintain on IVFs, clears if able to tolerate otherwise NPO status, PPI, IV/po pain control, trend lipase, CMP. Will defer repeat CT as patient has had recent CT scan at [facility]. She is following with GI at already. #2. Depression and Anxiety: We will continue patient home chronic aripiprazole and venlafaxine regimen. #3. Factor V Leiden mutation w/ Hx VTE (DVT, PE): s/p IVCF placement, will continue patient home Xarelto regimen. #4. Hypertension: Continue home regimen including metoprolol, lasix, PRN hydralazine. #5. Hyperlipidemia: Continue home fenofibrate regimen. #6. Seizure disorder/epilepsy: We will continue patient home Vimpat and depakote regimen. #7. Chart reported substance abuse history: Urine drug screen requested, given presentation and concern for pancreatitis we will utilize short-term narcotic therapy if necessary. #8. Chart reported history CVA: We will continue patient home Xarelto, not on statin therapy, continue hypertensive regimen. #9. Restless leg syndrome: We will continue patient on Requip regimen. #10. GERD: We will maintain on PPI. #11. Tobacco Abuse: Encouraged cessation, inpatient consultation per RT, NR if desired. #12. DVT prophylaxis: We will continue patient on Xarelto regimen. Charges/Coding Visit Charges Inpatient E&M: 89821 Init Hosp L2
[2023-07-07 16:48] LABS: Mucous, Urine 0 SEEN /hpf (<or=2+); Red Blood Cells-Urine 0 SEEN /hpf (0-5)
[2023-07-07 17:17] LABS: Color, Urine Yellow (Yellow); Glucose, Dipstick 1000 mg/dl (Normal); Ketone-Dipstick 5 mg/dl (Negative); Leukocyte Esterase-Dipstick Negative /ul (Negative); Nitrite-Dipstick Negative (Negative); Occult Blood-Urine Negative /ul (Negative); Protein-Dipstick Negative (Negative); Urine Bilirubin Dipstick Negative (Negative); Urine Clarity Clear (Clear); Urine Urobilinogen Normal (Normal)
[2023-07-07 17:41] LABS: Bacteria RARE /hpf (None Seen); Calcium Oxalate Crystals Ur RARE /hpf (<or=2+); Squamous Epithelial Cells - UA 0-5 SEEN /hpf (5-10); White Blood Cells 0-5 SEEN /hpf (0-5)
[2023-07-07] MEDS: 0.9% Normal Saline (1000mL) 1,000 ML 125 ML IV (19:07)
[2023-07-07] MEDS: oxyCODONE 5 MG Tablet PO (19:07)
[2023-07-07] MEDS: Morphine 2 MG/ML Syringe IV (21:08)
[2023-07-07] MEDS: 0.9% Saline Lock 10 ML Syringe IV (21:09)
[2023-07-07] MEDS: Divalproex Sodium 250 MG Tablet PO (21:09)
[2023-07-07] MEDS: Lacosamide 100 MG Tablet 200 MG PO (21:11)
[2023-07-07] MEDS: Venlafaxine XR 75 MG Capsule 225 MG PO (21:11)
[2023-07-07] MEDS: Pramipexole Di-HCl 0.25 MG Tablet PO (21:12)
[2023-07-07] MEDS: Potassium Chloride Oral Tablet 20 MEQ PO (21:12)
[2023-07-07] MEDS: Acyclovir 200 MG Capsule 400 MG PO (21:12)
[2023-07-07] MEDS: MELATONIN 10 MG TABLET PO (21:12)
[2023-07-07] MEDS: Fenofibrate 145 MG Tablet PO (21:13)
[2023-07-07] MEDS: Benztropine Mesylate 0.5 MG TABLET PO (21:13)
[2023-07-07] MEDS: Methenamine Hippurate 1 GM Tablet PO (21:13)
[2023-07-07] MEDS: Pantoprazole Sodium 40 MG Tablet PO (21:13)
[2023-07-07] MEDS: Metoprolol Tartrate 25 MG Tablet PO (21:14)
[2023-07-07] MEDS: Temazepam 15 MG Capsule PO (22:40)
[2023-07-08] VITALS (8 sets, daily range): BP systolic 100–140; BP diastolic 61–76; PULSE 65–73; RESP 16; TEMP 36.1–36.8; O2SAT 95–98; BMI 37.7
[2023-07-08] MEDS: oxyCODONE 5 MG Tablet PO ×4 (00:22→21:03)
[2023-07-08] MEDS: Acetaminophen 325 MG Tablet 650 MG PO ×2 (00:23→05:38)
[2023-07-08] MEDS: Morphine 2 MG/ML Syringe IV ×6 (02:44→22:18)
[2023-07-08] MEDS: Ondansetron 4 MG/2 ML Vial IV ×2 (02:51→22:18)
[2023-07-08] MEDS: Potassium Chloride Oral Tablet 20 MEQ PO ×3 (05:04→21:04)
[2023-07-08] MEDS: Divalproex Sodium 250 MG Tablet PO ×2 (05:05→17:07)
[2023-07-08] MEDS: Pantoprazole Sodium 40 MG Tablet PO ×2 (05:40→21:04)
[2023-07-08 06:13] LABS: Absolute Lymphocyte Count 2.31 X10^3/uL (0.83-4.51); Absolute Neutrophil Count 3.6 X10^3/uL (2.0-7.7); Basophil# 0.05 X10^3/uL; Basophil% 0.7 % (0-1); Eosinophil# 0.24 X10^3/uL; Eosinophils% 3.6 % (0-5); Hematocrit 37.8 % (37-47); Hemoglobin 11.6 g/dL (12.0-15.0); Lymphocyte # 2.31 X10^3/ul (0.83-4.51); Lymphocyte % 34.3 % (19-41); Mean Corp Hgb Conc 30.7 g/dL (32-36); Mean Corpuscular Hgb 28.8 pg (27.0-32.0); Mean Corpuscular Volume 93.8 fL (81-99); Mean Platelet Vol. 8.7 fl (6.2-12.0); Monocyte# 0.51 X10^3/uL; Monocyte% 7.6 % (0-10); NRBC Flagged by Analyzer 0 % (0-5); Neutrophil # 3.58 X10^3/uL (2.7-7.7); Neutrophil % 53.1 % (47-70); Platelet Count 399 K/mm3 (150-450); RBC Distribution Width CV 13.5 % (11.6-14.6); Red Blood Count 4.03 M/mm3 (4.2-5.4); White Blood Count 6.7 K/mm3 (4.4-11.0)
[2023-07-08 06:35] LABS: ALB/GLOB Ratio 0.9 RATIO (0.9-2.4); AST(SGOT) 51 U/L (15-37); Alanine Aminotransfer ALT/SGPT 51 U/L (13-56); Albumin, Serum 3.2 g/dL (3.2-5.0); Alkaline Phosphatase 86 U/L (45-117); Anion Gap 5 (5-15); BUN 19 mg/dL (7-18); BUN/Creat Ratio 24.5 RATIO (10-20); Calcium,Total 8.5 mg/dL (8.5-10.1); Chloride 106 mmol/L (98-107); Creatinine, Serum 0.78 mg/dL (0.55-1.02); EST Glomerular Filtration Rate 84 mL/min (>60); Est Glom Filt Rate - Afr Amer 102 mL/min (>60); Estimated Creatinine Clearance 69.76 ml/min; Globulin 3.6 g/dL (2.2-4.2); Glucose 127 mg/dL (74-106); Lipase 32 U/L (13-75); Potassium 3.9 mmol/L (3.5-5.1); Protein, Total 6.8 g/dL (6.4-8.2); Sodium Level 140 mmol/L (136-145)
[2023-07-08] MEDS: Metoprolol Tartrate 25 MG Tablet PO ×2 (07:41→21:05)
[2023-07-08] MEDS: Acyclovir 200 MG Capsule 400 MG PO ×2 (07:41→21:06)
[2023-07-08] MEDS: Miconazole Nitrate 43 GM Bottle 1 APPLIC TOPICAL ×2 (07:42→21:07)
[2023-07-08] MEDS: Ascorbic Acid 500 MG Tablet 1000 MG PO (07:42)
[2023-07-08] MEDS: Furosemide 40 MG Tablet PO (07:42)
[2023-07-08] MEDS: Pramipexole Di-HCl 0.25 MG Tablet PO ×2 (07:42→21:05)
[2023-07-08] MEDS: Benztropine Mesylate 0.5 MG TABLET PO ×2 (07:42→21:07)
[2023-07-08] MEDS: ARIPiprazole 10 MG Tablet PO (07:42)
[2023-07-08] MEDS: Rivaroxaban 10 MG Tablet PO (07:43)
[2023-07-08] MEDS: Lacosamide 100 MG Tablet PO (07:46)
[2023-07-08] MEDS: Lactulose 20 GM/30 ML UDC 10 GM PO ×2 (09:22→21:02)
[2023-07-08] MEDS: clonazePAM 0.5 MG Tablet PO (11:53)
--- NOTE | 2023-07-08 13:46 | PN_ITS ---
Subjective Subjective Patient seen and examined. She was admitted with a complaint of abdominal pain. She does have chronic pancreatitis and has had previous admissions for acute on chronic pancreatitis. She is here for such a flare up. She does still complain of abdominal pain and rates it at 6-7/10. She denies any nausea, vomiting or any other symptoms. Review of systems is otherwise negative. Objective Data Objective Data Vital Signs: Vital Signs Temp Pulse Resp BP Pulse Ox O2 Del Method 97.6 F L 65 16 114/66 97 Room Air 07/08/23 11:17 07/08/23 11:17 07/08/23 11:17 07/08/23 11:17 07/08/23 11:17 07/08/23 13:44 Oxygen Delivery Method Room Air Weight: 212 lb 15.465 oz Body Mass Index (BMI) 37.7 Intake & Output: Intake and Output for Last 24 Hours 07/06/23 07/07/23 07/08/23 23:59 23:59 23:59 Intake Total 742.5 / 742.5 1350 / 1350 Balance 742.5 / 742.5 1350 / 1350 Lab / Micro Data 07/08/23 05:09 07/08/23 05:09 Labs: Laboratory Results - last 24 hr 07/07/23 13:55: WBC 9.6, RBC 4.71, Hgb 13.4, Hct 42.3, MCV 89.8, MCH 28.5, MCHC 31.7 L, RDW Std Deviation 43.9, RDW Coeff of Megan 13.3, Plt Count 464 H, MPV 8.4, Immature Gran % (Auto) 0.700, Neut % (Auto) 70.7 H, Lymph % (Auto) 20.5, [place] % (Auto) 6.0, Eos % (Auto) 1.4, Baso % (Auto) 0.7, Absolute Neuts (auto) 6.8, Absolute Lymphs (auto) 1.97, Nucleated RBC % 0, Sodium 135 L, Potassium 3.8, Chloride 101, Carbon Dioxide 26.0, Anion Gap 8, BUN 19 H, Creatinine 1.05 H, Estim Creat Clear Calc 54.20, Est GFR (MDRD) Af Amer 72, Est GFR (MDRD) Non-Af 59 L, BUN/Creatinine Ratio 18.1, Glucose 320 H, Calcium 9.5, Total Bilirubin 0.20, AST 19, ALT 47, Alkaline Phosphatase 99, Total Protein 7.9, Albumin 3.6, Globulin 4.3 H, Albumin/Globulin Ratio 0.8 L, Lipase 85 H, Serum , Qual NEGATIVE 07/07/23 16:40: Urine Color Yellow, Urine Clarity Clear, Urine pH 7.0, Ur Specific [place] 1.010, Urine Protein Negative, Urine Glucose (UA) 1000 H, Urine Ketones 5 H, Urine Occult Blood Negative, Urine Nitrite Negative, Urine Bilirubin Negative, Urine Urobilinogen Normal, Ur Leukocyte Esterase Negative, Urine RBC 0 SEEN, Urine WBC 0-5 SEEN, Ur Squamous Epith Cells 0-5 SEEN, Calcium Oxalate Crystal RARE, Urine Bacteria RARE, Urine Mucus 0 SEEN 07/08/23 05:09: WBC 6.7, RBC 4.03 L, Hgb 11.6 L, Hct 37.8, MCV 93.8, MCH 28.8, MCHC 30.7 L, RDW Std Deviation 46.0 H, RDW Coeff of Megan 13.5, Plt Count 399, MPV 8.7, Immature Gran % (Auto) 0.700, Neut % (Auto) 53.1, Lymph % (Auto) 34.3, [place] % (Auto) 7.6, Eos % (Auto) 3.6, Baso % (Auto) 0.7, Absolute Neuts (auto) 3.6, Absolute Lymphs (auto) 2.31, Nucleated RBC % 0, Sodium 140, Potassium 3.9, Chloride 106, Carbon Dioxide 29.0, Anion Gap 5, BUN 19 H, Creatinine 0.78, Estim Creat Clear Calc 69.76, Est GFR (MDRD) Af Amer 102, Est GFR (MDRD) Non-Af 84, BUN/Creatinine Ratio 24.5 H, Glucose 127 H, Calcium 8.5, Total Bilirubin 0.30, AST 51 H, ALT 51, Alkaline Phosphatase 86, Total Protein 6.8, Albumin 3.2, Globulin 3.6, Albumin/Globulin Ratio 0.9, Lipase 32 Physical Exam Const alert, oriented x3 and no apparent distress Constitutional Narrative: obese General Appearance: well developed HEENT normocephalic, head/scalp atraumatic and moist oral mucous membranes Eyes PERRL and EOMs intact bilaterally Lymph Lymphatic: no lymphadenopathy noted and no lymphedema noted Resp normal respiratory effort, normal air movement and clear to auscultation bilaterally Cardio regular rate, regular rhythm, S1 normal heart sound, S2 normal heart sound and no murmurs GI normal to inspection, nondistended, normoactive bowel sounds, soft to palpation and non-distended GI Narrative: moderate epigastric tenderness, no guarding or rebound tenderness Extremity normal capillary refill, no clubbing, cyanosis or edema and no calf tenderness General Extremity: no tenderness to palpation of joints or extremities Skin General Skin Exam: no breakdown Neuro CN's II-XII intact bilaterally, no focal motor deficits, no sensory deficits noted and deep tendon reflexes 2+ bilaterally Motor Exam: strength 5/5 throughout Psych thought process normal, cooperative and affect normal Appearance: appropriate Assessment & Plan Assessment/Plan (1) Acute epigastric pain: (2) Pancreatitis, chronic: (3) Abdominal pain, chronic, epigastric: PLAN: Plan #Acute on chronic pancreatitis * still having epigastric pain. * saw her chronic pain doctor a couple of days ago, but states they were not able to get an IV access so she was sent to the ED where she had pain control. However pain still did not improve so she came into the ED here. * Currently on IV morphine and p.o. oxycodone as needed. * Currently NPO. Advance diet as tolerated. * Hydrate gently with IV fluids and monitor. * says she is due to have a port inserted once she is dischaged. She has been referred to general surgery in [place] for this to be done. * * #Factor V Leiden mutation: s/p IVC placement due to history of DVT and PE. On xarelto #Hypertension: On metoprolol and IV hydralazine as needed. #Hyperglycemia: Blood sugars was in the 300s and she also has glycosuria. No A1c in the records. Will check A1c. #Hyperlipidemia: On fenofibrate #Seizure disorder: On Vimpat and Depakote. #Restless leg syndrome: On Requip #Depression and anxiety: On aripiprazole and venlafaxine. #GERD: PPI DVT prophylaxis: On Xarelto Charges/Coding Visit Charges Inpatient E&M: 24570 Subs Hosp L2
--- NOTE | 2023-07-08 16:21 | CASEMGMT ---
Met with patient to complete RAMOS form. RAMOS form explained to patient who voiced understanding and signed form. Original form placed in pt?s chart and copy provided to patient. Lubna Gomez, Discharge Planning Asst.
[2023-07-08 18:01] LABS: Hemoglobin A1c 7.2 % (3.8-5.6)
[2023-07-08] MEDS: 0.9% Saline Lock 10 ML Syringe IV ×2 (18:37→22:18)
[2023-07-08] MEDS: Methenamine Hippurate 1 GM Tablet PO (21:04)
[2023-07-08] MEDS: Venlafaxine XR 75 MG Capsule 225 MG PO (21:04)
[2023-07-08] MEDS: Fenofibrate 145 MG Tablet PO (21:06)
[2023-07-08] MEDS: MELATONIN 10 MG TABLET PO (21:06)
[2023-07-08] MEDS: Lacosamide 100 MG Tablet 200 MG PO (21:19)
[2023-07-08] MEDS: Temazepam 15 MG Capsule PO (22:18)
[2023-07-09] VITALS (9 sets, daily range): BP systolic 100–136; BP diastolic 64–96; PULSE 63–80; RESP 16–18; TEMP 36.6–36.9; O2SAT 95–98; BMI 37.8
[2023-07-09] MEDS: oxyCODONE 5 MG Tablet PO ×2 (01:25→05:32)
[2023-07-09] MEDS: Acetaminophen 325 MG Tablet 650 MG PO ×3 (01:26→18:47)
[2023-07-09] MEDS: Mag Hydrox/Al Hydrox/Simeth 30 ML UDC PO (01:27)
[2023-07-09] MEDS: 0.9% Saline Lock 10 ML Syringe IV ×2 (03:05→21:07)
[2023-07-09] MEDS: Morphine 2 MG/ML Syringe IV ×4 (03:05→21:07)
[2023-07-09] MEDS: Potassium Chloride Oral Tablet 20 MEQ PO ×3 (05:28→21:08)
[2023-07-09] MEDS: Divalproex Sodium 250 MG Tablet PO ×2 (05:28→18:39)
[2023-07-09] MEDS: clonazePAM 0.5 MG Tablet PO ×2 (05:32→11:55)
[2023-07-09 07:22] LABS: Absolute Lymphocyte Count 1.75 X10^3/uL (0.83-4.51); Absolute Neutrophil Count 2.2 X10^3/uL (2.0-7.7); Basophil# 0.04 X10^3/uL; Basophil% 0.9 % (0-1); Eosinophils% 4.3 % (0-5); Hematocrit 39.1 % (37-47); Hemoglobin 12.3 g/dL (12.0-15.0); Lymphocyte # 1.75 X10^3/ul (0.83-4.51); Lymphocyte % 37.9 % (19-41); Mean Corp Hgb Conc 31.5 g/dL (32-36); Mean Corpuscular Hgb 28.8 pg (27.0-32.0); Mean Corpuscular Volume 91.6 fL (81-99); Mean Platelet Vol. 8.6 fl (6.2-12.0); Monocyte# 0.37 X10^3/uL; NRBC Flagged by Analyzer 0 % (0-5); Neutrophil # 2.24 X10^3/uL (2.7-7.7); Neutrophil % 48.5 % (47-70); Platelet Count 380 K/mm3 (150-450); RBC Distribution Width CV 13.5 % (11.6-14.6); RBC Distribution Width SD 45.7 fl (35.1-43.9); Red Blood Count 4.27 M/mm3 (4.2-5.4); White Blood Count 4.6 K/mm3 (4.4-11.0)
[2023-07-09 07:44] LABS: ALB/GLOB Ratio 0.9 RATIO (0.9-2.4); AST(SGOT) 195 U/L (15-37); Alanine Aminotransfer ALT/SGPT 171 U/L (13-56); Albumin, Serum 3.3 g/dL (3.2-5.0); Alkaline Phosphatase 121 U/L (45-117); Anion Gap 5 (5-15); BUN 12 mg/dL (7-18); Calcium,Total 8.7 mg/dL (8.5-10.1); Chloride 104 mmol/L (98-107); Creatinine, Serum 0.92 mg/dL (0.55-1.02); EST Glomerular Filtration Rate 69 mL/min (>60); Est Glom Filt Rate - Afr Amer 83 mL/min (>60); Estimated Creatinine Clearance 59.15 ml/min; Globulin 3.8 g/dL (2.2-4.2); Glucose 148 mg/dL (74-106); Potassium 3.7 mmol/L (3.5-5.1); Protein, Total 7.1 g/dL (6.4-8.2); Sodium Level 138 mmol/L (136-145)
[2023-07-09] MEDS: Ondansetron 4 MG/2 ML Vial IV (08:35)
[2023-07-09] MEDS: Pantoprazole Sodium 40 MG Tablet PO ×2 (10:51→21:11)
[2023-07-09] MEDS: Acyclovir 200 MG Capsule 400 MG PO ×2 (10:52→21:11)
[2023-07-09] MEDS: Ascorbic Acid 500 MG Tablet 1000 MG PO (10:52)
[2023-07-09] MEDS: Pramipexole Di-HCl 0.25 MG Tablet PO ×2 (10:54→21:10)
[2023-07-09] MEDS: Rivaroxaban 10 MG Tablet PO (10:54)
[2023-07-09] MEDS: Metoprolol Tartrate 25 MG Tablet PO ×2 (10:54→21:09)
[2023-07-09] MEDS: Furosemide 40 MG Tablet PO (10:55)
[2023-07-09] MEDS: Miconazole Nitrate 43 GM Bottle 1 APPLIC TOPICAL ×2 (10:55→21:23)
[2023-07-09] MEDS: Benztropine Mesylate 0.5 MG TABLET PO ×2 (10:56→21:08)
[2023-07-09] MEDS: ARIPiprazole 10 MG Tablet PO (10:56)
--- NOTE | 2023-07-09 11:23 | PCM.PROGNOTE ---
Subjective Subjective Patient seen and examined. She states her abdominal pain is worse today and was exacerbated by eating a full liquid diet. She denies any numbness or tingling, dizziness, and has no other symptoms. Review of systems otherwise negative. She says she does not feel well enough to go home today. She is otherwise hemodynamically stable. Objective Data Objective Data Vital Signs: Vital Signs Temp Pulse Resp BP Pulse Ox O2 Del Method 98.0 F 80 18 136/96 H 97 Room Air 07/09/23 08:58 07/09/23 10:54 07/09/23 08:58 07/09/23 08:58 07/09/23 08:58 07/09/23 08:58 Oxygen Delivery Method Room Air Weight: 213 lb 6.519 oz Body Mass Index (BMI) 37.8 Intake & Output: Intake and Output for Last 24 Hours 07/07/23 07/08/23 07/09/23 23:59 23:59 23:59 Intake Total 742.5 / 742.5 1949 Balance 742.5 / 742.5 1949 Lab / Micro Data 07/09/23 06:14 07/09/23 06:14 Labs: Laboratory Results - last 24 hr 07/08/23 05:09: Hemoglobin A1c 7.2 H 07/09/23 06:14: WBC 4.6, RBC 4.27, Hgb 12.3, Hct 39.1, MCV 91.6, MCH 28.8, MCHC 31.5 L, RDW Std Deviation 45.7 H, RDW Coeff of Megan 13.5, Plt Count 380, MPV 8.6, Immature Gran % (Auto) 0.400, Neut % (Auto) 48.5, Lymph % (Auto) 37.9, Yell % (Auto) 8.0, Eos % (Auto) 4.3, Baso % (Auto) 0.9, Absolute Neuts (auto) 2.2, Absolute Lymphs (auto) 1.75, Nucleated RBC % 0, Sodium 138, Potassium 3.7, Chloride 104, Carbon Dioxide 29.0, Anion Gap 5, BUN 12, Creatinine 0.92, Estim Creat Clear Calc 59.15, Est GFR (MDRD) Af Amer 83, Est GFR (MDRD) Non-Af 69, BUN/Creatinine Ratio 13.0, Glucose 148 H, Calcium 8.7, Total Bilirubin 0.30, AST 195 H, ALT 171 H, Alkaline Phosphatase 121 H, Total Protein 7.1, Albumin 3.3, Globulin 3.8, Albumin/Globulin Ratio 0.9 Physical Exam Const alert, oriented x3 and no apparent distress Constitutional Narrative: obese General Appearance: well developed HEENT normocephalic, head/scalp atraumatic and moist oral mucous membranes Eyes PERRL and EOMs intact bilaterally Lymph Lymphatic: no lymphadenopathy noted and no lymphedema noted Resp normal respiratory effort, normal air movement and clear to auscultation bilaterally Cardio regular rate, regular rhythm, S1 normal heart sound, S2 normal heart sound and no murmurs GI normal to inspection, nondistended, normoactive bowel sounds, soft to palpation and non-distended GI Narrative: moderate epigastric tenderness, no guarding or rebound tenderness Extremity normal capillary refill, no clubbing, cyanosis or edema and no calf tenderness General Extremity: no tenderness to palpation of joints or extremities Skin General Skin Exam: no breakdown Neuro CN's II-XII intact bilaterally, no focal motor deficits, no sensory deficits noted and deep tendon reflexes 2+ bilaterally Motor Exam: strength 5/5 throughout Psych thought process normal, cooperative and affect normal Appearance: appropriate Assessment & Plan Assessment/Plan (1) Acute epigastric pain: (2) Pancreatitis, chronic: (3) Abdominal pain, chronic, epigastric: PLAN: Plan #Acute on chronic pancreatitis still having epigastric pain and says it was aggravated by her eating today. saw her chronic pain doctor a couple of days ago, but states they were not able to get an IV access so she was sent to the ED where she had pain control. However pain still did not improve so she came into the ED here. Currently on IV morphine and p.o. oxycodone as needed. on full liquid diet; advance as tolerated she wants morphine dose increased today, or to be switched to IV dilaudid. She looked quite comfortable during review, so will hold off on increasing morphine dose Hydrate gently with IV fluids and monitor. says she is due to have a port inserted once she is discharged. She has been referred to general surgery in [place] for this to be done. #Factor V Leiden mutation: s/p IVC placement due to history of DVT and PE. On xarelto #Hypertension: On metoprolol and IV hydralazine as needed. #Diabetes mellitus: Blood sugars was in the 300s and she also has glycosuria. her A1C is 7.2, indicating she is diabetic. Will start on PO metformin 500mg bid. #Hyperlipidemia: On fenofibrate #Seizure disorder: On Vimpat and Depakote. #Restless leg syndrome: On Requip #Depression and anxiety: On aripiprazole and venlafaxine. #GERD: PPI DVT prophylaxis: On Xarelto Disposition: for dc home tomorrow Charges/Coding Visit Charges Inpatient E&M: 21795 Subs Hosp L2
[2023-07-09] MEDS: Lacosamide 100 MG Tablet PO ×2 (11:55)
[2023-07-09] MEDS: oxyCODONE 5 MG Tablet 10 MG PO ×2 (15:02→18:46)
--- NOTE | 2023-07-09 17:29 | NURSING ---
this nurse in to talk with pt as requested. talked with primary RN Gia. aware per primary RN pt has placed call light on 5 times in last hour asking for pain medication, requesting morphine and oxyir be given together. pt tearful requesting change in staffing. discussed with patient pain medication as ordered. discussed conversation had with Dr. Basilio this a.m. of no increase morphine, no dilaudid, and discharge tomorrow 07/10. Discussed with patient overall goal of transitioning to only oral narcotics and spreading out use of morphine. discussed it has only been 2 hours since receiving the increased dose of oxyir. Discussed with patient looking at overall narcotic intake not just how long it's been since morphine. again discussed goal of not taking morphine as frequently if not needed and attempting to wean to oxyir only for discharging planning. discussed when oxyir is due if needed. discussed shift change time and will carlos her request for another nurse tomorrow. Pt in agreement with this plan and denied further needs at this time.
--- NOTE | 2023-07-09 18:22 | NURSING ---
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
--- NOTE | 2023-07-09 18:55 | NURSING ---
handout given on prescription opioid addiction as per CDC. reinforcement provided on medication safety/pain management/ multimodal complimentary alternatives to assist with pain medication management.
[2023-07-09] MEDS: Lacosamide 100 MG Tablet 200 MG PO (21:06)
[2023-07-09] MEDS: Temazepam 15 MG Capsule PO (21:06)
[2023-07-09] MEDS: Methenamine Hippurate 1 GM Tablet PO (21:09)
[2023-07-09] MEDS: Fenofibrate 145 MG Tablet PO (21:12)
[2023-07-09] MEDS: Venlafaxine XR 75 MG Capsule 225 MG PO (21:12)
[2023-07-09] MEDS: MELATONIN 10 MG TABLET PO (21:13)
[2023-07-10] MEDS: clonazePAM 0.5 MG Tablet PO (00:01)
[2023-07-10] MEDS: Lactulose 20 GM/30 ML UDC 10 GM PO ×2 (00:06→12:14)
[2023-07-10 03:54] VITALS: BMI 37.8
[2023-07-10] MEDS: oxyCODONE 5 MG Tablet 10 MG PO ×4 (04:04→12:37)
[2023-07-10] MEDS: Acetaminophen 325 MG Tablet 650 MG PO ×4 (04:04→12:37)
[2023-07-10] MEDS: Potassium Chloride Oral Tablet 20 MEQ PO (04:11)
[2023-07-10] MEDS: Divalproex Sodium 250 MG Tablet PO (04:12)
[2023-07-10 04:48] VITALS: BP 112/81; PULSE 74; RESP 16; TEMP 36.8; O2SAT 97
[2023-07-10] MEDS: 0.9% Saline Lock 10 ML Syringe IV ×2 (06:16→08:29)
[2023-07-10] MEDS: Morphine 2 MG/ML Syringe IV (06:17)
[2023-07-10 06:19] LABS: Absolute Neutrophil Count 3.3 X10^3/uL (2.0-7.7); Basophil# 0.06 X10^3/uL; Eosinophil# 0.21 X10^3/uL; Eosinophils% 3.5 % (0-5); Hematocrit 40.2 % (37-47); Hemoglobin 12.9 g/dL (12.0-15.0); Lymphocyte % 32.9 % (19-41); Mean Corp Hgb Conc 32.1 g/dL (32-36); Mean Corpuscular Volume 90.3 fL (81-99); Mean Platelet Vol. 8.5 fl (6.2-12.0); Monocyte# 0.46 X10^3/uL; Monocyte% 7.6 % (0-10); NRBC Flagged by Analyzer 0 % (0-5); Neutrophil # 3.31 X10^3/uL (2.7-7.7); Neutrophil % 54.5 % (47-70); Platelet Count 424 K/mm3 (150-450); RBC Distribution Width CV 13.5 % (11.6-14.6); Red Blood Count 4.45 M/mm3 (4.2-5.4); White Blood Count 6.1 K/mm3 (4.4-11.0)
[2023-07-10 06:41] LABS: ALB/GLOB Ratio 0.9 RATIO (0.9-2.4); AST(SGOT) 54 U/L (15-37); Alanine Aminotransfer ALT/SGPT 134 U/L (13-56); Albumin, Serum 3.5 g/dL (3.2-5.0); Alkaline Phosphatase 120 U/L (45-117); Anion Gap 8 (5-15); BUN 13 mg/dL (7-18); BUN/Creat Ratio 13.5 RATIO (10-20); Calcium,Total 9.2 mg/dL (8.5-10.1); Chloride 101 mmol/L (98-107); Creatinine, Serum 0.96 mg/dL (0.55-1.02); EST Glomerular Filtration Rate 66 mL/min (>60); Est Glom Filt Rate - Afr Amer 80 mL/min (>60); Estimated Creatinine Clearance 56.68 ml/min; Glucose 202 mg/dL (74-106); Potassium 3.7 mmol/L (3.5-5.1); Protein, Total 7.5 g/dL (6.4-8.2); Sodium Level 136 mmol/L (136-145)
[2023-07-10] MEDS: Ondansetron 4 MG/2 ML Vial IV (08:29)
[2023-07-10 10:00] VITALS: BP 136/86; PULSE 80; RESP 18; TEMP 36.6; O2SAT 97
[2023-07-10] MEDS: ARIPiprazole 10 MG Tablet PO (10:36)
[2023-07-10] MEDS: Pantoprazole Sodium 40 MG Tablet PO (10:36)
[2023-07-10] MEDS: Acyclovir 200 MG Capsule 400 MG PO (10:36)
[2023-07-10] MEDS: Benztropine Mesylate 0.5 MG TABLET PO (10:36)
[2023-07-10] MEDS: Furosemide 40 MG Tablet PO (10:37)
[2023-07-10] MEDS: Ascorbic Acid 500 MG Tablet 1000 MG PO (10:37)
[2023-07-10] MEDS: Pramipexole Di-HCl 0.25 MG Tablet PO (10:38)
[2023-07-10] MEDS: Rivaroxaban 10 MG Tablet PO (10:38)
[2023-07-10 10:40] VITALS: BP 136/86; PULSE 80
[2023-07-10] MEDS: Metoprolol Tartrate 25 MG Tablet PO (10:40)
[2023-07-10] MEDS: Miconazole Nitrate 43 GM Bottle 1 APPLIC TOPICAL (10:40)
--- NOTE | 2023-07-10 11:09 | DS.PCM_ITS ---
Providers Date of Admission: 07/07/23 Date of Discharge: 07/10/23 Primary Care Physician: Rin Rivera, ALLEN-C Reason For Visit: PANCREATIC PSEUDOCYTS Diagnosis Discharge Diagnosis (1) Acute epigastric pain: Status: Inactive Code(s): R10.13 - Epigastric pain (2) Pancreatitis, chronic: Status: Inactive Code(s): K86.1 - Other chronic pancreatitis (3) Abdominal pain, chronic, epigastric: Status: Chronic Code(s): R10.13 - Epigastric pain; G89.29 - Other chronic pain Plan #Acute on chronic pancreatitis * still having epigastric pain and says it was aggravated by her eating today. * saw her chronic pain doctor a couple of days ago, but states they were not able to get an IV access so she was sent to the ED where she had pain control. However pain still did not improve so she came into the ED here. * Currently on IV morphine and p.o. oxycodone as needed. * on full liquid diet; advance as tolerated * she wants morphine dose increased today, or to be switched to IV dilaudid. She looked quite comfortable during review, so will hold off on increasing morphine dose * Hydrate gently with IV fluids and monitor. * says she is due to have a port inserted once she is discharged. She has been referred to general surgery in [place] for this to be done. * * #Factor V Leiden mutation: s/p IVC placement due to history of DVT and PE. On xa relto #Hypertension: On metoprolol and IV hydralazine as needed. #Diabetes mellitus: Blood sugars was in the 300s and she also has glycosuria. her A1C is 7.2, indicating she is diabetic. Will start on PO metformin 500mg bid. #Hyperlipidemia: On fenofibrate #Seizure disorder: On Vimpat and Depakote. #Restless leg syndrome: On Requip #Depression and anxiety: On aripiprazole and venlafaxine. #GERD: PPI DVT prophylaxis: On Xarelto Disposition: for nc home tomorrow Medications at Discharge Home Medications furosemide 40 mg tablet 40 mg PO DAILY water pill 09/10/16 potassium chloride 10 mEq tablet,extended release(part/cryst) 20 meq PO TID supplment 09/10/16 valacyclovir 500 mg tablet (Valtrex) 500 mg PO DAILY herpes 10/25/18 melatonin 3 mg capsule 10 mg PO QHS sleep 05/26/19 linaclotide 290 mcg capsule (Linzess) 290 mcg PO DAILY bowels 05/28/21 ascorbic acid (vitamin C) 1,000 mg tablet (Vitamin C) 1 g PO DAILY supplement 12/03/21 clonazepam 0.5 mg tablet (Klonopin) 0.5 mg PO BID PRN Seizures 12/03/21 methenamine hippurate 1 gram tablet (Hiprex) 1 g PO QHS bladder infections 12/03/21 metoprolol tartrate 25 mg tablet 25 mg PO Q12H heart rate 12/03/21 venlafaxine 150 mg capsule,extended release 24 hr (Effexor XR) 225 mg PO QHS mood 12/03/21 rivaroxaban 10 mg tablet (Xarelto) 10 mg PO DAILY blood thinner 07/07/22 cholecalciferol (vitamin D3) 1,250 mcg (50,000 unit) capsule 50,000 unit PO FR supplement 02/05/23 lacosamide 100 mg tablet (Vimpat) 100 mg PO DAILY seizures 02/05/23 lacosamide 200 mg tablet (Vimpat) 200 mg PO QHS seizures 02/05/23 lactulose 10 gram/15 mL oral solution 15 ml PO BID PRN PRN Constipation 02/05/23 ropinirole 0.5 mg tablet 0.5 mg PO BID restless legs 02/05/23 omeprazole 40 mg capsule,delayed release 40 mg PO BID 02/23/23 ondansetron 4 mg disintegrating tablet 4 mg PO Q6H PRN nausea 02/23/23 fenofibrate nanocrystallized 145 mg tablet 145 mg PO QHS 05/07/23 nitrofurantoin monohydrate/macrocrystals 100 mg capsule (Macrobid) 100 mg PO DAILY PRN after sex 05/07/23 promethazine 25 mg tablet 25 mg PO Q12H PRN nausea and vomiting 05/07/23 aripiprazole 10 mg tablet 10 mg PO DAILY 06/23/23 benztropine 0.5 mg tablet 0.5 mg PO BID 06/23/23 divalproex 250 mg tablet,delayed release 250 mg PO Q12H 06/23/23 oxycodone 5 mg tablet 10 mg (2 x 5 mg) PO Q4H PRN PRN Pain Score 4-10 3 days #18 tabs 07/10/23 Hospital Course Procedures None Summary of Care Provided Minutes Spent on Discharge: 55 Hospital Course: Patient is a 47-year-old female with a past medical history as outlined which includes factor V Leiden mutation with history of DVT status post IVC placement, hypertension hyperlipidemia as well as chronic pancreatitis and substance abuse history. She was admitted with a complaint of abdominal pain on 07/07/2023. She had recently been admitted at this hospital for the same complaint and managed for acute on chronic pancreatitis. Patient followed up but [facility] and says she saw her pain management doctor a few days prior to admission. However the could not get an IV line and so she was subsequently sent to the ED where she was given some pain meds. However his symptoms persisted so she came into the ED. On admission labs were largely unremarkable. She was admitted and managed for intractable abdominal pain due to acute on chronic pancreatitis. She was hydrated with IV fluids and started on IV pain medication. Abdominal pain gradually improved and she was able to tolerate an oral diet. Patient states she was due to have a port placed by a surgeon [place] to home she had been referred by her PCP due to difficulty with IV access. She was also due to follow-up with her pain management doctor. She was discharged on 07/10/2023. She was given a prescription for p.o. oxycodone 10 mg every 4 hours as needed for total of 18 tablets for 3 days. OARRS score was checked, no red flags seen. She is to follow-up with her primary care doctor and with pain management within 1 to 2 weeks. Patient seen and examined prior to discharge. She had no complaints and had an uneventful night. Review of systems otherwise negative. Labs and vitals reviewed. Home medication reviewed and reconciled. Physical Exam Const alert, oriented x3 and no apparent distress Constitutional Narrative: obese General Appearance: cooperative, comfortable and well developed HEENT normocephalic, head/scalp atraumatic, hearing grossly normal bilaterally and moist oral mucous membranes Eyes PERRL and EOMs intact bilaterally Lymph Lymphatic: no lymphadenopathy noted and no lymphedema noted Resp normal respiratory effort, normal air movement, no use of accessory muscles and clear to auscultation bilaterally Cardio regular rate, regular rhythm, S1 normal heart sound, S2 normal heart sound and no murmurs GI normal to inspection, nondistended, normoactive bowel sounds, soft to palpation and non-distended GI Narrative: abdominal tenderness had resolved Extremity normal to inspection, full ROM, normal capillary refill, no clubbing, cyanosis or edema and no calf tenderness General Extremity: no tenderness to palpation of joints or extremities Skin no rashes or lesions noted and no wounds General Skin Exam: no breakdown Neuro CN's II-XII intact bilaterally, no focal motor deficits, no sensory deficits noted and deep tendon reflexes 2+ bilaterally Motor Exam: strength 5/5 throughout Psych thought process normal, cooperative and affect normal Appearance: appropriate Weight / BMI Weight Weight: 213 lb 6.519 oz Body Mass Index (BMI) 37.8 ABG / Lab / Microbiology Data 07/10/23 05:27 07/10/23 05:27 Laboratory: Laboratory Results - last 24 hr 07/10/23 05:27: WBC 6.1, RBC 4.45, Hgb 12.9, Hct 40.2, MCV 90.3, MCH 29.0, MCHC 32.1, RDW Std Deviation 45.0 H, RDW Coeff of Megan 13.5, Plt Count 424, MPV 8.5, Immature Gran % (Auto) 0.500, Neut % (Auto) 54.5, Lymph % (Auto) 32.9, [place] % (Auto) 7.6, Eos % (Auto) 3.5, Baso % (Auto) 1.0, Absolute Neuts (auto) 3.3, Absolute Lymphs (auto) 2.00, Nucleated RBC % 0, Sodium 136, Potassium 3.7, Chloride 101, Carbon Dioxide 27.0, Anion Gap 8, BUN 13, Creatinine 0.96, Estim Creat Clear Calc 56.68, Est GFR (MDRD) Af Amer 80, Est GFR (MDRD) Non-Af 66, BUN/Creatinine Ratio 13.5, Glucose 202 H, Calcium 9.2, Total Bilirubin 0.30, AST 54 H, ALT 134 H, Alkaline Phosphatase 120 H, Total Protein 7.5, Albumin 3.5, Globulin 4.0, Albumin/Globulin Ratio 0.9 D/C Instructions Discharge Diet: Low fat / Low cholesterol Discharge Activity: Return to Normal Activity Weight Bearing Status: Weight bearing as tolerated Call your doctor if you observe: Fever of 101 or Higher, Shortness of breath, Dizziness, Swelling in the ankles, Chest pain, Increased palpitations (irregular heartbeat) and Uncontrolled pain Meaningful Use Info Meaningful Use Diagnoses (Choose all that apply): None applicable Discharge Plan Admission Admit Date/Time: 07/07/23 15:55 Primary Reason for Your Visit: acute pancreatitis Attending Provider: Desi Basilio Primary Care Provider: Rin Rivera NP Consulting Providers: Kareen Sanchez Instructions Patient Instructions: Understanding Pancreatitis Additional Instructions / Restrictions: follow up with pain management as scheduled on outpatient basis Discharge Orders/Prescriptions Prescriptions: New oxycodone 5 mg Tablet 10 mg PO Q4H PRN PRN (Reason: Pain Score 4-10) 3 Days Qty: 18 0RF Continued ondansetron 4 mg tablet,disintegrating 4 mg PO Q6H PRN (Reason: nausea) omeprazole 40 mg capsule,delayed release(DR/EC) 40 mg PO BID furosemide 40 MG tablet 40 mg PO DAILY potassium chloride 10 MEQ tablet 20 meq PO TID valacyclovir [Valtrex] 500 MG tablet 500 mg PO DAILY melatonin 3 MG capsule 10 mg PO QHS Linzess 290 mcg capsule 290 mcg PO DAILY Patient Comments: take 1 capsule by mouth once daily methenamine hippurate [Hiprex] 1 gram Tablet 1 g PO QHS ascorbic acid (vitamin C) [Vitamin C] 1,000 mg Tablet 1 g PO DAILY clonazepam [Klonopin] 0.5 mg Tablet 0.5 mg PO BID PRN (Reason: Seizures) venlafaxine [Effexor XR] 150 mg Capsule,Extended Release 24hr 225 mg PO QHS metoprolol tartrate 25 mg Tablet 25 mg PO Q12H Xarelto 10 mg tablet 10 mg PO DAILY ropinirole 0.5 mg Tablet 0.5 mg PO BID lactulose 10 gram/15 mL Solution 15 ml PO BID PRN PRN (Reason: Constipation) cholecalciferol (vitamin D3) 1,250 mcg (50,000 unit) capsule 50,000 unit PO FR Patient Comments: TAKE 1 CAPSULE BY MOUTH EVERY WEEK lacosamide [Vimpat] 100 mg Tablet 100 mg PO DAILY lacosamide [Vimpat] 200 mg Tablet 200 mg PO QHS aripiprazole 10 mg tablet 10 mg PO DAILY benztropine 0.5 mg tablet 0.5 mg PO BID Patient Comments: TAKE 1 TABLET BY MOUTH TWICE DAILY As Needed for eps divalproex 250 mg tablet,delayed release (DR/EC) 250 mg PO Q12H Patient Comments: TAKE 1 TABLET TWICE DAILY for mood fenofibrate nanocrystallized 145 mg tablet 145 mg PO QHS nitrofurantoin monohyd/m-cryst [Macrobid] 100 mg capsule 100 mg PO DAILY PRN (Reason: after sex) promethazine 25 mg tablet 25 mg PO Q12H PRN (Reason: nausea and vomiting) Patient Comments: TAKE 1 TABLET BY MOUTH TWICE DAILY Referrals / Follow Up: Rin Rivera DOOR FRAMER, DOOR FRAMER-C [Primary Care Provider] - Within 2 Weeks Disposition Disposition (needs filled in before D/C Order can be placed): Home, Self Care Charges/Coding Visit Charges Inpatient E&M: 07975 Disch Hosp >30min
--- NOTE | 2023-07-10 11:30 | NURSING ---
this nurse at nurses station when patient walked to desk and asked another staff member for a gown. Patient proceeded to complain to this nurse that nurse Gia from yesterday had returned to her room after this nurse had talked with patient. Patient stated that KAY Nielsen had confronted patient regarding her complaints and patient proceeded to call Gia derogitory labels. patient states that Gia had told patient she was on video. Explained to patient she is not being video'ed. We use monitors and there is nothing that can record her in her room. No further complaints verbalized and patient proceeded to walk hallway with visitor.
[2023-07-10 12:20] VITALS: BP 122/84; PULSE 81; RESP 18; TEMP 36.6; O2SAT 97
== END 2023-07-10 12:49 | disposition home or self-care (01) ==
LOC: ED 15:52 → MS3 16:13
PROVIDERS: Admitting Provider Family Medicine; Emergency Provider Emergency Medicine; PCP Nurse Practitioner Family; Visit Provider Student in an Organized Health Care Education/Training Program
DX: K85.90 Acute pancreatitis without necrosis or infection, unspecified (principal); I50.32 Chronic diastolic (congestive) heart failure; I11.0 Hypertensive heart disease with heart failure; K86.1 Other chronic pancreatitis; G40.909 Epilepsy, unspecified, not intractable, without status epilepticus; D68.51 Activated protein C resistance; E78.5 Hyperlipidemia, unspecified; Z79.01 Long term (current) use of anticoagulants; G89.29 Other chronic pain; F17.220 Nicotine dependence, chewing tobacco, uncomplicated; R11.0 Nausea; K21.9 Gastro-esophageal reflux disease without esophagitis; Z79.899 Other long term (current) drug therapy; F17.290 Nicotine dependence, other tobacco product, uncomplicated; Z86.711 Personal history of pulmonary embolism; Z86.718 Personal history of other venous thrombosis and embolism; F41.9 Anxiety disorder, unspecified; F32.A Depression, unspecified; G25.81 Restless legs syndrome; R73.9 Hyperglycemia, unspecified
CPT/HCPCS: 36415; 80053; 81001; 83036; 83690; 84703; 85025; 94668; 96361; 96374; 96375; 96376; 99221; 99252; 99284; J7030; A4216; G0378; G0463; J2405

== ENCOUNTER 2023-07-22 14:24 | Inpatient (IN) | payer MEDICARE, SELFPAY ==
[2023-07-22 14:25] VITALS: BP 136/115; PULSE 114; RESP 16; TEMP 36.3; O2SAT 99; BMI 38.7
--- NOTE | 2023-07-22 14:52 | ED.VIS.GI ---
HPI HPI - GI History of Present Illness Chief Complaint: Abd Pain Informant: patient Narrative Narrative: Presents recurrent abdominal pain started yesterday pain rating left shoulder. No nausea or vomiting. No fevers. Patient history of pancreatitis with pseudocyst. Total hysterectomy, appendectomy, cholecystectomy in the past. She is on Xarelto for history of blood clots due to factor V Leiden. She follows GI, recently referred to pain management at [facility]. No she was seen by myself approximately 2 weeks ago required admission for pain control. At that time pain management unable to access IV to give her infusions that were planned for every 2 weeks. Since then followed up with them this past Tuesday again due to inability to get IV access she was not given her treatment. She states was in the process try to get a med port, however declined by local surgeon. She is waiting to go back to her GI doctor at for discussion for access options for her infusion treatments. She states pain management does not write her for any pain medicines. OARRS report reviewed, her last prescription was written for oxycodone on upon her discharge on the of last month. She denies any current vomiting or diarrhea. Prior similar symptoms: Yes PFSH PFSH Medical History Anxiety Chronic constipation Chronic diastolic HF (heart failure) Depression Depression DVT (deep venous thrombosis) Epilepsy Factor V Leiden mutation Former smoker GERD (gastroesophageal reflux disease) History of CVA (cerebrovascular accident) History of pancreatitis History of pulmonary embolus (PE) Hyperlipidemia Hypertension Pancreatitis Pancreatitis Presence of IVC filter Pulmonary embolism Seizure disorder Stroke/cerebrovascular accident Substance abuse Vitamin D deficiency Home Medications furosemide 40 mg tablet 40 mg PO DAILY water pill 09/10/16 [History Last Taken 07/21/23] potassium chloride 10 mEq tablet,extended release(part/cryst) 20 meq PO TID supplment 09/10/16 [History Last Taken 07/21/23] valacyclovir 500 mg tablet (Valtrex) 500 mg PO DAILY herpes 10/25/18 [History Last Taken 07/21/23] melatonin 3 mg capsule 10 mg PO QHS sleep 05/26/19 [History Last Taken 07/21/23] linaclotide 290 mcg capsule (Linzess) 290 mcg PO DAILY bowels 05/28/21 [History Last Taken 07/21/23] ascorbic acid (vitamin C) 1,000 mg tablet (Vitamin C) 1 g PO DAILY supplement 12/03/21 [History Last Taken 07/21/23] clonazepam 0.5 mg tablet (Klonopin) 0.5 mg PO BID PRN Seizures 12/03/21 [History Last Taken 07/21/23] methenamine hippurate 1 gram tablet (Hiprex) 1 g PO QHS bladder infections 12/03/21 [History Last Taken 07/21/23] venlafaxine 150 mg capsule,extended release 24 hr (Effexor XR) 225 mg PO QHS mood 12/03/21 [History Last Taken 07/21/23] rivaroxaban 10 mg tablet (Xarelto) 10 mg PO DAILY blood thinner 07/07/22 [History Last Taken 07/21/23] cholecalciferol (vitamin D3) 1,250 mcg (50,000 unit) capsule 50,000 unit PO FR supplement 02/05/23 [History Last Taken 07/21/23] lacosamide 100 mg tablet (Vimpat) 100 mg PO DAILY seizures 02/05/23 [History Last Taken 07/21/23] lacosamide 200 mg tablet (Vimpat) 200 mg PO QHS seizures 02/05/23 [History Last Taken 07/21/23] lactulose 10 gram/15 mL oral solution 15 ml PO BID PRN PRN Constipation 02/05/23 [History Last Taken Unknown] ropinirole 0.5 mg tablet 0.5 mg PO BID restless legs 02/05/23 [History Last Taken 07/21/23] omeprazole 40 mg capsule,delayed release 40 mg PO BID 02/23/23 [History Last Taken 07/21/23] ondansetron 4 mg disintegrating tablet 4 mg PO Q6H PRN nausea 02/23/23 [History Last Taken Unknown] fenofibrate nanocrystallized 145 mg tablet 145 mg PO QHS 05/07/23 [History Last Taken 07/21/23] aripiprazole 10 mg tablet 10 mg PO DAILY 06/23/23 [History Last Taken 07/21/23] benztropine 0.5 mg tablet 0.5 mg PO BID 06/23/23 [History Last Taken 07/21/23] divalproex 250 mg tablet,delayed release 250 mg PO Q12H 06/23/23 [History Last Taken 07/21/23] clonidine HCl 0.2 mg tablet 0.2 mg PO DAILY 07/22/23 [History Last Taken 07/21/23] hydrochlorothiazide 25 mg tablet 25 mg PO DAILY 07/22/23 [History Last Taken 07/21/23] metoprolol succinate 25 mg tablet,extended release 24 hr 25 mg PO DAILY 07/22/23 [History Last Taken 07/21/23] mirtazapine 7.5 mg tablet 7.5 mg PO DAILY 07/22/23 [History Last Taken 07/21/23] Allergy/AdvReac Type Severity Reaction Status Date / Time gabapentin [From Neurontin] Allergy Rash Verified 07/22/23 14:26 Penicillins Allergy Rash Verified 07/22/23 14:26 Sulfa (Sulfonamide Allergy Rash Verified 07/22/23 14:26 Antibiotics) Family History Mother Hypertension Hyperlipidemia Father Heart disease Surgical History H/O: History of appendectomy History of embolic filter insertion History of hysterectomy Hx of cholecystectomy Social History household members: none Smoking Status: Current every day smoker tobacco type: e-cigarettes alcohol intake: former substance use type: marijuana ROS ROS ED Constitutional Constitutional ED: Denies chills, fever(s) or sweats Eyes Eyes: Denies change in vision ENT ENT ED: Denies dysphagia or sore throat Cardiovascular Cardiovascular: Denies chest pain, leg edema, palpitations or racing heartbeat Respiratory/Chest Respiratory/Chest: Denies cough, dyspnea or dyspnea on exertion Gastrointestinal Gastrointestinal: Reports abdominal pain; Denies diarrhea, nausea or vomiting Genitourinary Genitourinary ED: Denies dysuria, hematuria or urinary frequency Musculoskeletal Musculoskeletal: Denies back pain, extremity pain or neck pain Integumentary Denies rash or wounds Neurologic Neurologic: Denies headache(s), paresthesias or weakness EXAM Physical Exam Const Vital Signs: 07/22/23 14:25 07/22/23 16:24 Temperature 97.4 F L Temperature Source Temporal Pulse Rate 114 H 100 Respiratory Rate 16 16 Blood Pressure 136/115 H 138/91 H Blood Pressure Mean 122 106 Pulse Ox 99 98 Oxygen Delivery Method Room Air Room Air Positive well nourished and well developed General Appearance ED: well developed and NAD HEENT Reports dry mucous membranes normocephalic and atraumatic Mouth ED: Yes dry mucous membranes Mouth: dry mucous membranes Eyes PERRL, EOMs intact bilaterally and conjunctivae normal General Eye ED: Yes normal appearance of both eyes Neck no lymphadenopathy and supple General: Negative for tenderness Chest Wall Chest: Negative for tenderness Resp normal respiratory effort and normal air movement Effort and Inspection: symmetric chest movement; Negative for respiratory distress Cardio regular rhythm and no murmurs Rate: tachycardic Peripheral Pulses: pulses 2+ throughout GI normal to inspection, nondistended, normoactive bowel sounds and non-tender Palpation: Negative for guarding or rebound tenderness present Back/Spine no CVA tenderness and no thoracic nor lumbar tenderness Extremity normal to inspection General Extremety ED: Negative for edema or tenderness General Extremity: Negative for edema Neuro oriented x3 and no sensory deficits noted Sensorium / Orientation: awake and alert Skin no rashes or lesions noted and no wounds MDM MDM MDM Narrative Medical decision making narrative: Interventions / MDM: Differential diagnosis: Pancreatitis, abdominal pain history of pancreatic pseudocyst Diagnosis considered but do not suspect: Nonsurgical abdomen. My EKG interpretation: N/A Imaging independently reviewed and interpreted by myself: N/A External documents reviewed: N/A Test considered but not ordered:N/A ED course: Patient dry mucosal membranes, tachycardic. Nonsurgical abdomen exam. With her pancreatitis history, will check abdominal labs, fluids will be ordered, Zofran and morphine. Patient labs plus or lipase greater than 250 consistent with pancreatitis. Normal liver enzymes. Glucose elevated 358 however anion gap was normal. Reevaluation pain was more controlled however still there. Additional morphine was ordered. Continued IV fluids. I discussed with hospitalist Dr. Fulton for admission. Re-evaluation: stable Disposition discussed with patient/family/significant other: Patient Case discussed with consulting clinician: Hospitalist This note was generated with [employer] dictation software. It may contain incorrect words, spelling, and punctuation that were not noted in checking the note before signing. Lab Data Attestation: I reviewed the patient's lab results. Labs: Laboratory Results - last 24 hr 07/22/23 15:16 WBC 7.7 RBC 4.66 Hgb 13.3 Hct 42.2 MCV 90.6 MCH 28.5 MCHC 31.5 L RDW Std Deviation 46.8 H RDW Coeff of Megan 14.0 Plt Count 414 MPV 8.5 Immature Gran % (Auto) 0.800 Neut % (Auto) 72.4 H Lymph % (Auto) 18.0 L [place] % (Auto) 5.4 Eos % (Auto) 2.6 Baso % (Auto) 0.8 Absolute Neuts (auto) 5.5 Absolute Lymphs (auto) 1.38 Nucleated RBC % 0 Sodium 135 L Potassium 3.9 Chloride 99 Carbon Dioxide 25.0 Anion Gap 11 BUN 18 Creatinine 1.02 Estim Creat Clear Calc 55.80 Est GFR (MDRD) Af Amer 74 Est GFR (MDRD) Non-Af 61 BUN/Creatinine Ratio 17.6 Glucose 358 H Calcium 9.2 Total Bilirubin 0.20 AST 67 H ALT 136 H Alkaline Phosphatase 109 Total Protein 8.0 Albumin 3.5 Globulin 4.5 H Albumin/Globulin Ratio 0.8 L Lipase > 250 H Discharge Plan Disposition Disposition: Acute Care Hospital [facility] Discharge Date/Time: 07/22/23 17:35
[2023-07-22] MEDS: 0.9% Normal Saline (1000mL) 1,000 ML 1000 ML IV (15:22)
[2023-07-22] MEDS: Morphine 4 MG/ML Syringe IV ×2 (15:23→17:14)
[2023-07-22] MEDS: Ondansetron 4 MG/2 ML Vial IV (15:23)
[2023-07-22 15:40] LABS: Absolute Lymphocyte Count 1.38 X10^3/uL (0.83-4.51); Absolute Neutrophil Count 5.5 X10^3/uL (2.0-7.7); Basophil# 0.06 X10^3/uL; Basophil% 0.8 % (0-1); Eosinophils% 2.6 % (0-5); Hematocrit 42.2 % (37-47); Hemoglobin 13.3 g/dL (12.0-15.0); Lymphocyte # 1.38 X10^3/ul (0.83-4.51); Mean Corp Hgb Conc 31.5 g/dL (32-36); Mean Corpuscular Hgb 28.5 pg (27.0-32.0); Mean Corpuscular Volume 90.6 fL (81-99); Mean Platelet Vol. 8.5 fl (6.2-12.0); Monocyte# 0.41 X10^3/uL; Monocyte% 5.4 % (0-10); NRBC Flagged by Analyzer 0 % (0-5); Neutrophil # 5.54 X10^3/uL (2.7-7.7); Neutrophil % 72.4 % (47-70); Platelet Count 414 K/mm3 (150-450); RBC Distribution Width SD 46.8 fl (35.1-43.9); Red Blood Count 4.66 M/mm3 (4.2-5.4); White Blood Count 7.7 K/mm3 (4.4-11.0)
[2023-07-22 16:05] LABS: ALB/GLOB Ratio 0.8 RATIO (0.9-2.4); AST(SGOT) 67 U/L (15-37); Alanine Aminotransfer ALT/SGPT 136 U/L (13-56); Albumin, Serum 3.5 g/dL (3.2-5.0); Alkaline Phosphatase 109 U/L (45-117); Anion Gap 11 (5-15); BUN 18 mg/dL (7-18); BUN/Creat Ratio 17.6 RATIO (10-20); Calcium,Total 9.2 mg/dL (8.5-10.1); Chloride 99 mmol/L (98-107); Creatinine, Serum 1.02 mg/dL (0.55-1.02); EST Glomerular Filtration Rate 61 mL/min (>60); Est Glom Filt Rate - Afr Amer 74 mL/min (>60); Globulin 4.5 g/dL (2.2-4.2); Glucose 358 mg/dL (74-106); Lipase > 250 U/L (13-75); Potassium 3.9 mmol/L (3.5-5.1); Sodium Level 135 mmol/L (136-145)
[2023-07-22 16:24] VITALS: BP 138/91; PULSE 100; RESP 16; O2SAT 98
--- NOTE | 2023-07-22 17:12 | HP.PCM.HOS_ITS ---
[facility] - General General Date of Admission: 07/22/23 Date of Service: 07/22/23 Chief Complaint: Severe abdominal pain [facility] Narrative DOROTHEA RUTLEDGE, is a 47 F with a past medical history of chronic pancreatitis due to 2 pseudocysts followed by GI, chronic abdominal pain followed by pain management at [facility], factor V Leiden mutation causing DVT and PE; status post IVC filter placement on chronic Xarelto, history of CVA, history of substance abuse; with cannabis, former history of tobacco abuse; now smoking e-cigarettes, essential hypertension, hyperlipidemia, obesity with BMI of 38.8 this admission, seizure disorder; on Vimpat and Depakote, history of herpes; on valacyclovir, restless leg syndrome; on Requip, depression and anxiety, GERD, history of total abdominal hysterectomy, history of appendectomy, history of cholecystectomy and recent admission here from 07/07/2023 to 07/10/2023 for treatment of acute on chronic pancreatitis causing intractable abdominal pain who presents to [facility] complaining of abdominal pain. She reports her symptoms began yesterday on July 21, 2023 with the abrupt onset of severe abdominal pain radiating into her left shoulder that is different in nature from her previous pain. Patient was recently evaluated by pain management but she has been unable to have IV access to get her infusions which are planned for every 2 weeks. She states the pain management does not write for any pain medications for her and her [facility] report proves this to be true with patient having oxycodone written for her upon discharge on the of last month. She denies any current nausea vomiting or diarrhea but she does have chronic constipation. In the ER she was noted to have a nonsurgical abdomen with dry mucous membranes and tachycardia in the 114 bpm range and she was then diagnosed with acute on chronic pancreatitis causing intractable abdominal pain complicated by clinical evidence of dehydration and laboratory evidence of hyperglycemia with a blood glucose of 358 mg/dL present on admission. She was then admitted to the general medical floor for ongoing care for status expected to be greater than 48 hours. [facility] Medical History Anxiety Chronic constipation Chronic diastolic HF (heart failure) Depression Depression DVT (deep venous thrombosis) Epilepsy Factor V Leiden mutation Former smoker GERD (gastroesophageal reflux disease) History of CVA (cerebrovascular accident) History of pancreatitis History of pulmonary embolus (PE) Hyperlipidemia Hypertension Pancreatitis Pancreatitis Presence of IVC filter Pulmonary embolism Seizure disorder Stroke/cerebrovascular accident Substance abuse Vitamin D deficiency Home Medications furosemide 40 mg tablet 40 mg PO DAILY water pill 09/10/16 [History Last Taken 07/21/23] potassium chloride 10 mEq tablet,extended release(part/cryst) 20 meq PO TID supplment 09/10/16 [History Last Taken 07/21/23] valacyclovir 500 mg tablet (Valtrex) 500 mg PO DAILY herpes 10/25/18 [History Last Taken 07/21/23] melatonin 3 mg capsule 10 mg PO QHS sleep 05/26/19 [History Last Taken 07/21/23] linaclotide 290 mcg capsule (Linzess) 290 mcg PO DAILY bowels 05/28/21 [History Last Taken 07/21/23] ascorbic acid (vitamin C) 1,000 mg tablet (Vitamin C) 1 g PO DAILY supplement 0 12/03/21 [History Last Taken 07/21/23] clonazepam 0.5 mg tablet (Klonopin) 0.5 mg PO BID PRN Seizures 12/03/21 [History Last Taken 07/21/23] methenamine hippurate 1 gram tablet (Hiprex) 1 g PO QHS bladder infections 12/03/21 [History Last Taken 07/21/23] venlafaxine 150 mg capsule,extended release 24 hr (Effexor XR) 225 mg PO QHS mood 12/03/21 [History Last Taken 07/21/23] rivaroxaban 10 mg tablet (Xarelto) 10 mg PO DAILY blood thinner 07/07/22 [History Last Taken 07/21/23] cholecalciferol (vitamin D3) 1,250 mcg (50,000 unit) capsule 50,000 unit PO FR supplement 02/05/23 [History Last Taken 07/21/23] lacosamide 100 mg tablet (Vimpat) 100 mg PO DAILY seizures 02/05/23 [History Last Taken 07/21/23] lacosamide 200 mg tablet (Vimpat) 200 mg PO QHS seizures 02/05/23 [History Last Taken 07/21/23] lactulose 10 gram/15 mL oral solution 15 ml PO BID PRN PRN Constipation 02/05/23 [History Last Taken Unknown] ropinirole 0.5 mg tablet 0.5 mg PO BID restless legs 02/05/23 [History Last Taken 07/21/23] omeprazole 40 mg capsule,delayed release 40 mg PO BID 02/23/23 [History Last Taken 07/21/23] ondansetron 4 mg disintegrating tablet 4 mg PO Q6H PRN nausea 02/23/23 [History Last Taken Unknown] fenofibrate nanocrystallized 145 mg tablet 145 mg PO QHS 05/07/23 [History Last Taken 07/21/23] aripiprazole 10 mg tablet 10 mg PO DAILY 06/23/23 [History Last Taken 07/21/23] benztropine 0.5 mg tablet 0.5 mg PO BID 06/23/23 [History Last Taken 07/21/23] divalproex 250 mg tablet,delayed release 250 mg PO Q12H 06/23/23 [History Last Taken 07/21/23] clonidine HCl 0.2 mg tablet 0.2 mg PO DAILY 07/22/23 [History Last Taken 07/21/23] hydrochlorothiazide 25 mg tablet 25 mg PO DAILY 07/22/23 [History Last Taken 07/21/23] metoprolol succinate 25 mg tablet,extended release 24 hr 25 mg PO DAILY 07/22/23 [History Last Taken 07/21/23] mirtazapine 7.5 mg tablet 7.5 mg PO DAILY 07/22/23 [History Last Taken 07/21/23] Allergy/AdvReac Type Severity Reaction Status Date / Time gabapentin [From Neurontin] Allergy Rash Verified 07/22/23 14:26 Penicillins Allergy Rash Verified 07/22/23 14:26 Sulfa (Sulfonamide Allergy Rash Verified 07/22/23 14:26 Antibiotics) Family History Mother Hypertension Hyperlipidemia Father Heart disease Surgical History H/O: History of appendectomy History of embolic filter insertion History of hysterectomy Hx of cholecystectomy Social History household members: none Smoking Status: Current every day smoker tobacco type: e-cigarettes alcohol intake: former substance use type: marijuana ROS ROS Narrative Constitutional: Patient denies fevers chills or sweats. Eyes: Patient denies changes in vision. ENT: Patient denies sore throat or painful swallowing. Cardiovascular: Patient denies chest pain palpitations or edema in her lower extremities. Respiratory: Patient denies cough shortness of breath or dyspnea on exertion. GI: Patient admits to abdominal pain but denies diarrhea, nausea or vomiting. Genitourinary: Patient denies dysuria hematuria or urinary frequency. Musculoskeletal: Patient denies back pain pain in her extremities or neck pain. Skin: Patient denies rash or wounds. Neurologic: Patient denies headache paresthesias or focal neurologic weakness. Vital Signs Vital Signs Vital Signs: 07/22/23 14:25 Temperature 97.4 F L Temperature Source Temporal Pulse Rate 114 H Respiratory Rate 16 Blood Pressure 136/115 H Blood Pressure Mean 122 Pulse Ox 99 Oxygen Delivery Method Room Air Weight Weight: 219 lb Body Mass Index (BMI) 38.7 Physical Exam Const alert and oriented x3 Constitutional Narrative: Patient is obese and mildly ill-appearing. General Appearance: cooperative HEENT normocephalic, head/scalp atraumatic and hearing grossly normal bilaterally HEENT Narrative: Dry mucous membranes noted. Eyes PERRL, EOMs intact bilaterally and conjunctivae normal Neck no lymphadenopathy Resp normal respiratory effort, no retractions, no use of accessory muscles and clear to auscultation bilaterally Cardio regular rate GI normal to inspection, nondistended, normoactive bowel sounds and soft to pal pation GI Narrative: Generalized tenderness to palpation with normal bowel sounds. Extremity normal to inspection, full ROM and no clubbing, cyanosis or edema Neuro oriented x3, CN's II-XII intact bilaterally, moves all extremities and no focal motor deficits Sensorium / Orientation: awake, alert, oriented to person, oriented to place and oriented to time Speech: speech normal Psych Mood & Affect: anxious Results Medical Records Data Attestation: I reviewed the patient's medical records Lab / Micro Data Attestation: I reviewed the patient's lab results. 07/22/23 15:16 07/22/23 15:16 Labs: Laboratory Results - last 24 hr 07/22/23 15:16: WBC 7.7, RBC 4.66, Hgb 13.3, Hct 42.2, MCV 90.6, MCH 28.5, MCHC 31.5 L, RDW Std Deviation 46.8 H, RDW Coeff of Megan 14.0, Plt Count 414, MPV 8.5, Immature Gran % (Auto) 0.800, Neut % (Auto) 72.4 H, Lymph % (Auto) 18.0 L, [place] % (Auto) 5.4, Eos % (Auto) 2.6, Baso % (Auto) 0.8, Absolute Neuts (auto) 5.5, Absolute Lymphs (auto) 1.38, Nucleated RBC % 0, Sodium 135 L, Potassium 3.9, Chloride 99, Carbon Dioxide 25.0, Anion Gap 11, BUN 18, Creatinine 1.02, Estim Creat Clear Calc 55.80, Est GFR (MDRD) Af Amer 74, Est GFR (MDRD) Non-Af 61, BUN/Creatinine Ratio 17.6, Glucose 358 H, Calcium 9.2, Total Bilirubin 0.20, AST 67 H, ALT 136 H, Alkaline Phosphatase 109, Total Protein 8.0, Albumin 3.5, Globulin 4.5 H, Albumin/Globulin Ratio 0.8 L, Lipase > 250 H Assessment & Plan Assessment/Plan (1) Acute on chronic pancreatitis: PLAN: Plan 1. Acute on chronic pancreatitis secondary to pseudocysts with intractable abdominal pain and poor venous access -patient will be admitted to the general medical floor for bowel rest with only a clear liquid diet and Dilaudid 1 mg IV every 4 hours as needed for severe level 6-10 pain. Give Tylenol as needed for fever greater than 101 ?F or mild to moderate 1-5 pain. According to the patient her pain management doctors at [facility] wanted to give her a combination of propofol, lidocaine and ketamine q. 2 weeks which has not been able to be given because of her lack of IV access. Therefore, patient will be set up to have a PICC line placed this admission until a port can be placed with her vascular surgeon that is scheduled in October. Finally, we will check MRCP this admission to thoroughly assess this patient's pancreatic anatomy given her cycle readmission and the new nature of her pain radiating into her Left should er. I discussed this care plan with the patient and she is in agreement. 2. Factor V Leiden mutation causing CVA, DVT and PE; status post IVC filter placement on chronic Xarelto -continue Xarelto as previous. 3. History of seizure disorder; on Vimpat and Depakote -continue these medications as previous and check Depakote level. Finally, we will give IV Ativan as needed for breakthrough seizure activity. 4. Obesity with BMI of 38.8 this admission - weight loss will be encouraged. 5. History of herpes on valacyclovir -continue valacyclovir as previous. 6. History of substance abuse with marijuana -patient denies current substance abuse. Use of any illicit drugs was discouraged. 7. History of tobacco abuse -patient now only smokes e-cigarettes which will be discouraged. 8. Restless leg syndrome -continue Requip as previous. 9. Depression with anxiety -continue home medications as previous. 10. GERD-continue PPI. 11. Past surgical history includes history of total abdominal hysterectomy, history of appendectomy and history of cholecystectomy - Noted. 12. DVT prophylaxis -continue Xarelto as previous for treatment of #2. Total time: Approximately 55 minutes Charges/Coding Visit Charges Inpatient E&M: 94536 Init Hosp L2
[2023-07-22] MEDS: 0.9% Normal Saline (1000mL) 1,000 ML 100 ML IV (17:14)
[2023-07-22 17:36] VITALS: BMI 38.7
[2023-07-22 17:45] VITALS: BP 127/91; PULSE 93; RESP 18; TEMP 37.2; O2SAT 97
--- NOTE | 2023-07-22 18:19 | MRI_ITS ---
Abdominal MRI and MRCP without contrast 07/22/2023 7:40 PM COMPARISON: None CLINICAL HISTORY: Recurrent acute on chronic pancreatitis. -- Patient has been repeatedly admitted to the hospital for this problem witho TECHNIQUE: Multiplanar and multisequence MR images of the abdomen were obtained with MRCP sequence. Three-dimensional post-processing reconstructions were performed. FINDINGS: Liver: Unremarkable Gallbladder: Surgically absent. Bile Ducts: Mild intra and extra hepatic biliary ductal dilatation consistent with reservoir effect status post cholecystectomy. No T2 dark stones present. Pancreas: Nondilated main pancreatic duct. Mild inflammatory changes surrounding the pancreas. There is a 5.6 x 4.2 cm fluid collection within the body of the pancreas. Spleen: Unremarkable Adrenal Glands: Unremarkable Kidneys: Unremarkable GI Tract: Unremarkable Lymphadenopathy: Absent Ascites: Absent Bones: No suspicious lesions MRI/MRCP Abdomen without Contrast IMPRESSION: Examination is very limited due to heavy artifact from patient IVC filter obscuring field of view. Despite limitations: Acute on chronic pancreatitis with a 5.6 cm pseudocyst in the body of the pancreas. The main pancreatic duct is not dilated. Mild intra and extra hepatic biliary ductal dilatation consistent with reservoir effect status post cholecystectomy. Electronically Signed: Poncho Sal MD at 23:36 EDT ,
[2023-07-22] MEDS: clonazePAM 0.5 MG Tablet PO (19:17)
[2023-07-22 19:24] LABS: Valproic Acid (Depakene) Level 18 ug/mL (50-100)
[2023-07-22 20:51] VITALS: BP 134/87; PULSE 90; RESP 16; TEMP 36.9; O2SAT 96
[2023-07-22] MEDS: 0.9% Normal Saline (1000mL) 1,000 ML 125 ML IV (21:01)
[2023-07-22] MEDS: Ondansetron ODT 4 MG Tablet PO (21:02)
[2023-07-22] MEDS: HYDROmorphone 1 MG/ML Syringe IV (21:02)
[2023-07-22] MEDS: Lacosamide 100 MG Tablet 200 MG PO (21:02)
[2023-07-22] MEDS: Potassium Chloride Oral Tablet 20 MEQ PO (21:05)
[2023-07-22] MEDS: Senna/Docusate Sodium 1 Tablet PO (21:06)
[2023-07-22] MEDS: Divalproex Sodium 250 MG Tablet PO (21:06)
[2023-07-22] MEDS: Benztropine Mesylate 0.5 MG TABLET PO (21:06)
[2023-07-22] MEDS: Fenofibrate 145 MG Tablet PO (21:07)
[2023-07-22] MEDS: Pramipexole Di-HCl 0.25 MG Tablet PO (21:07)
[2023-07-22] MEDS: MELATONIN 10 MG TABLET PO (21:07)
[2023-07-22] MEDS: Venlafaxine XR 75 MG Capsule 225 MG PO (21:07)
[2023-07-22] MEDS: Pantoprazole Sodium 40 MG Tablet PO (21:08)
[2023-07-22] MEDS: Methenamine Hippurate 1 GM Tablet PO (21:08)
[2023-07-23 01:19] VITALS: BP 125/82; PULSE 84; RESP 18; TEMP 36.9; O2SAT 94
[2023-07-23] MEDS: HYDROmorphone 1 MG/ML Syringe IV ×6 (01:21→22:10)
[2023-07-23] MEDS: 0.9% Saline Lock 10 ML Syringe IV ×3 (01:21→18:02)
[2023-07-23 02:38] VITALS: BMI 38.7
[2023-07-23] MEDS: 0.9% Normal Saline (1000mL) 1,000 ML 125 ML IV ×3 (05:13→22:10)
[2023-07-23 05:19] VITALS: BP 135/88; PULSE 90; RESP 16; TEMP 36.8; O2SAT 100
--- NOTE | 2023-07-23 07:37 | PN.HOSP_ITS ---
Reason for Visit Reason for Visit: Diagnoses Acute pancreatitis without necrosis or infection, unspecified (07/22/23) Other chronic pancreatitis (07/22/23) Other specified health status (07/22/23) Subjective Subjective Follow-up for acute on chronic pancreatitis. Objective Data Objective Data Vital Signs: Vital Signs Temp Pulse Resp BP Pulse Ox O2 Del Method 98.3 F 90 16 135/88 H 100 Room Air 07/23/23 05:19 07/23/23 05:19 07/23/23 05:19 07/23/23 05:19 07/23/23 05:19 07/23/23 05:19 Oxygen Delivery Method Room Air Weight: 218 lb 14.704 oz Body Mass Index (BMI) 38.7 Intake & Output: Intake and Output for Last 24 Hours 07/21/23 07/22/23 07/23/23 23:59 23:59 23:59 Intake Total 1583.33 / 1583.33 2400 / 2400 Balance 1583.33 / 1583.33 2400 / 2400 Lab / Micro Data 07/22/23 15:16 07/23/23 08:40 Labs: Laboratory Results - last 24 hr 07/22/23 15:16: WBC 7.7, RBC 4.66, Hgb 13.3, Hct 42.2, MCV 90.6, MCH 28.5, MCHC 31.5 L, RDW Std Deviation 46.8 H, RDW Coeff of Megan 14.0, Plt Count 414, MPV 8.5, Immature Gran % (Auto) 0.800, Neut % (Auto) 72.4 H, Lymph % (Auto) 18.0 L, [place] % (Auto) 5.4, Eos % (Auto) 2.6, Baso % (Auto) 0.8, Absolute Neuts (auto) 5.5, Absolute Lymphs (auto) 1.38, Nucleated RBC % 0, Sodium 135 L, Potassium 3.9, Chloride 99, Carbon Dioxide 25.0, Anion Gap 11, BUN 18, Creatinine 1.02, Estim Creat Clear Calc 55.80, Est GFR (MDRD) Af Amer 74, Est GFR (MDRD) Non-Af 61, BUN/Creatinine Ratio 17.6, Glucose 358 H, Calcium 9.2, Total Bilirubin 0.20, AST 67 H, ALT 136 H, Alkaline Phosphatase 109, Total Protein 8.0, Albumin 3.5, Globulin 4.5 H, Albumin/Globulin Ratio 0.8 L, Lipase > 250 H 07/22/23 18:50: Valproic Acid 18 L Radiography Diagnostic Testing: Radiology Impression MRCP 07/22/23 18:19 IMPRESSION: Examination is very limited due to heavy artifact from patient IVC filter obscuring field of view. Despite limitations: Acute on chronic pancreatitis with a 5.6 cm pseudocyst in the body of the pancreas. The main pancreatic duct is not dilated. Mild intra and extra hepatic biliary ductal dilatation consistent with reservoir effect status post cholecystectomy. Electronically Signed: Poncho Sal MD at 23:36 EDT , Physical Exam Narrative Seen and examined. Patient is stated she had history of binge drinking alcohol in the past. She had first acute pancreatitis attack on 2013 after that she quit alcohol. She follows saturation equipment operator Dr. Levi andersen. 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 She states he is not taking pancreatic enzyme supplement, Creon because it contains pork but she has not tried other formula. Patient is still complaining of abdominal pain intermittent, 4-5/10 intensity with radiation to back and left shoulder. No associated nausea vomiting. Physical exam General: Alert, Oriented x3, Cooperative HEENT: Atraumatic, PERRLA, EOMI, Normocephalic Oral: Oral mucosa moist. No Gingival or Mucosal Lesions/ Ulcerations Neck: Supple, No JVD, Negative Carotid Bruits Lungs: Air entry diminished in bilateral lung bases. No crepitation/rhonchi Cardiovascular: Regular rate, Regular Rhythm, Normal S1, Normal S2, No murmurs Abdomen: Bowel Sounds Present, Soft, tenderness present of epigastric region., Non-Distended : No renal angle tenderness. No suprapubic tenderness. Extremities: No edema, Capillary Refill Less than 3 Seconds Skin: No rashes, No breakdown Musculoskeletal: No Tenderness to Palpation of Joints or Extremities Neurological: Cranial nerves II-XII grossly intact, DTR 2+/4. No acute focal neurological deficit. Psych/Mental Status: Normal Affect, Appropriate. Assessment & Plan Assessment/Plan (1) Acute on chronic pancreatitis: PLAN: Plan 1. Acute on chronic pancreatitis secondary to pseudocysts with intractable abdominal pain and poor venous access: [facility]Patient is still has pain about 5-6/10 intensity despite being on lidocaine patch morphine and lidocaine. MRCP on 07/22 shows acute on chronic pancreatitis with 5.6 cm pseudocyst in the body of the pancreas. The main pancreatic duct is not dilated. Mild intra and extrahepatic biliary ductal dilation consistent with postcholecystectomy. Patient had mild fever at 101 Fahrenheit. She has pain management at [facility] ventricular combination of pro pofol lidocaine and ketamine acute 2 weeks which was not given because of lack of IV access. Patient is supposed to have PICC line until a port is placed with the vascular surgeon, scheduled in October.Lipase is more than 250, not more than 3 times.. 2. Factor V Leiden mutation causing CVA, DVT and PE; status post IVC filter placement on chronic Xarelto -continue Xarelto as previous. 3. History of seizure disorder; on Vimpat and Depakote -continue these medications as previous and check Depakote level. Finally, we will give IV Ativan as needed for breakthrough seizure activity. 4. Obesity with BMI of 38.8 this admission - weight loss will be encouraged. 5. History of herpes on valacyclovir -continue valacyclovir as previous. 6. History of substance abuse with marijuana -patient denies current substance abuse. Use of any illicit drugs was discouraged. 7. History of tobacco abuse -patient now only smokes e-cigarettes which will be discouraged. 8. Restless leg syndrome -continue Requip as previous. 9. Depression with anxiety -continue home medications as previous. 10. GERD-continue PPI. 11. Past surgical history includes history of total abdominal hysterectomy, history of appendectomy and history of cholecystectomy - Noted. 12. DVT prophylaxis -continue Xarelto Total time of the visit including total time spent in counseling or coordination of care, (more than 50% of the total time, spent in obtaining medical information from nurses and other ancillary care providers,explaining to the patient about labs, imaging, diagnosis and management of active complex medical conditions), 2 full active conditions, review of labs and imaging is 40 minutes. Charges/Coding Visit Charges Inpatient E&M: 54717 Subs Hosp L3
[2023-07-23] MEDS: Potassium Chloride Oral Tablet 20 MEQ PO ×3 (08:43→17:01)
[2023-07-23] MEDS: Lacosamide 100 MG Tablet PO (09:30)
[2023-07-23] MEDS: Pantoprazole Sodium 40 MG Tablet PO ×2 (09:31→22:13)
[2023-07-23] MEDS: Polyethylene Glycol 3350 17 GM PACKET PO (09:31)
[2023-07-23] MEDS: Senna/Docusate Sodium 1 Tablet PO ×2 (09:31→22:12)
[2023-07-23] MEDS: Pramipexole Di-HCl 0.25 MG Tablet PO ×2 (09:33→22:14)
[2023-07-23 09:34] VITALS: BP 132/91; PULSE 95
[2023-07-23] MEDS: Ascorbic Acid 500 MG Tablet 1000 MG PO (09:34)
[2023-07-23] MEDS: Benztropine Mesylate 0.5 MG TABLET PO ×2 (09:34→22:09)
[2023-07-23] MEDS: Metoprolol(XL)Succ 25 MG Tablet PO (09:34)
[2023-07-23] MEDS: Rivaroxaban 10 MG Tablet PO (09:35)
[2023-07-23] MEDS: Divalproex Sodium 250 MG Tablet PO ×2 (09:36→22:12)
[2023-07-23] MEDS: ARIPiprazole 10 MG Tablet PO (09:37)
[2023-07-23 09:48] VITALS: BP 132/91; PULSE 80; RESP 18; TEMP 36.7; O2SAT 100
[2023-07-23 09:55] LABS: AST(SGOT) 87 U/L (15-37); Alanine Aminotransfer ALT/SGPT 131 U/L (13-56); Albumin, Serum 3.4 g/dL (3.2-5.0); Alkaline Phosphatase 97 U/L (45-117); Anion Gap 10 (5-15); BUN 17 mg/dL (7-18); BUN/Creat Ratio 22.9 RATIO (10-20); Calcium,Total 8.2 mg/dL (8.5-10.1); Chloride 105 mmol/L (98-107); Creatinine, Serum 0.74 mg/dL (0.55-1.02); EST Glomerular Filtration Rate 89 mL/min (>60); Est Glom Filt Rate - Afr Amer 107 mL/min (>60); Estimated Creatinine Clearance 76.91 ml/min; Globulin 3.4 g/dL (2.2-4.2); Glucose 151 mg/dL (74-106); Potassium 4.1 mmol/L (3.5-5.1); Protein, Total 6.8 g/dL (6.4-8.2); Sodium Level 139 mmol/L (136-145)
[2023-07-23] MEDS: clonazePAM 0.5 MG Tablet PO ×2 (11:55→22:09)
--- NOTE | 2023-07-23 14:10 | CASEMGMT ---
KAY LAWSON Assessment: KAY LAWSON met with pt for initial transition planning/care coordination assessment. KAY LAWSON introduced self and role at [facility], pt voices understanding and consents to assessment. Pt is A/O and answers all questions appropriately at this time. Pt sitting up in bed in no distress. Care providers, pharmacy, and demographics verified/updated. PCP:Rin Rivera NP Specialists:Dr Sky, cardio; Dr Tian, pain mgnt @ [place]/; Dr Levi Molina, GI @ [facility]osp[facility]main campus. Has an appt 08/03. Preferred Pharmacy: [facility] Insurance: [employer] [facility] Prescription Benefit: yes LNOK: Lizz Patricia, mother; Giancarlo Rayaerhoff, sig other Living Arrangements: Pt lives with sig other in a single story home with 3 steps to enter with a rail. Pt reports she is I in ADL's and denies concerns at home. Sig other can help, if needed. Transportation: Pt does not drive much. Pt mother and sig other transport her to medical appts. DME/HHC/SNF: Pt has grab bars, BP cuff, and pulse ox. She would like to get a shower chair and is aware her insurance does not cover this item. She states she has a stipend through her insurance she plans to use towards a chair. Pt has had HHC in the past. Pt denies SNF stays. OP infusion: Pt states her pain mgnt was working on her getting OP infusions (lidocaine, propofol, and keamine) Q 2 weeks @ the infusion clinic in [place], but did not have IV access. Pt states she would like to get HHC set up to do every other week PICC dressing changes on the opposite weeks of the infusions so she doesn't have to drive up to [place] every week. KAY LAWSON informed her that insurance does not cover for both OP and HHC at the same time. Pt states she will call OP center and will f/u with pain gin to discuss this and schedule appts. Pt states no further. concerns with going home at time of dc. Pt states no further concerns/needs. CM to follow. Advised pt to ask CM if any further question/concerns/needs arise, voices understanding. Plan: Home w/PICC for OP infusions. Chuy SANCHEZ RN, CM
[2023-07-23 14:31] LABS: Absolute Lymphocyte Count 1.53 X10^3/uL (0.83-4.51); Absolute Neutrophil Count 3.8 X10^3/uL (2.0-7.7); Basophil# 0.05 X10^3/uL; Basophil% 0.8 % (0-1); Eosinophil# 0.28 X10^3/uL; Eosinophils% 4.5 % (0-5); Hemoglobin 11.4 g/dL (12.0-15.0); Lymphocyte # 1.53 X10^3/ul (0.83-4.51); Lymphocyte % 24.8 % (19-41); Mean Corp Hgb Conc 30.8 g/dL (32-36); Mean Corpuscular Hgb 28.6 pg (27.0-32.0); Mean Platelet Vol. 8.6 fl (6.2-12.0); Monocyte# 0.42 X10^3/uL; Monocyte% 6.8 % (0-10); NRBC Flagged by Analyzer 0 % (0-5); Neutrophil # 3.84 X10^3/uL (2.7-7.7); Neutrophil % 62.5 % (47-70); Platelet Count 301 K/mm3 (150-450); RBC Distribution Width SD 48.2 fl (35.1-43.9); Red Blood Count 3.98 M/mm3 (4.2-5.4); White Blood Count 6.2 K/mm3 (4.4-11.0)
[2023-07-23 17:03] VITALS: BP 125/88; PULSE 84; RESP 18; TEMP 37.1; O2SAT 100
[2023-07-23] MEDS: Lactulose 20 GM/30 ML UDC 10 GM PO (17:19)
[2023-07-23] MEDS: Venlafaxine XR 75 MG Capsule 225 MG PO (22:10)
[2023-07-23] MEDS: Fenofibrate 145 MG Tablet PO (22:11)
[2023-07-23] MEDS: Methenamine Hippurate 1 GM Tablet PO (22:13)
[2023-07-23] MEDS: MELATONIN 10 MG TABLET PO (22:14)
[2023-07-23] MEDS: Lacosamide 100 MG Tablet 200 MG PO (22:18)
[2023-07-23] MEDS: Ondansetron ODT 4 MG Tablet PO (23:24)
[2023-07-24] MEDS: HYDROmorphone 1 MG/ML Syringe IV ×6 (01:20→23:33)
[2023-07-24] MEDS: BENZOCAINE/MENTHOL 1 LOZENGE 2 LOZENGE MUCOUS MEM ×2 (05:05→20:43)
[2023-07-24] MEDS: 0.9% Normal Saline (1000mL) 1,000 ML 125 ML IV ×3 (05:10→20:44)
[2023-07-24 05:44] VITALS: BP 115/75; PULSE 78; RESP 18; TEMP 36.6; O2SAT 100
[2023-07-24 07:26] VITALS: O2SAT 95
--- NOTE | 2023-07-24 08:34 | PCM.PN.HOSP ---
Subjective Subjective Still having some abdominal pain but would like to try low-fat diet today if possible Objective Data Objective Data Vital Signs: Vital Signs Temp Pulse Resp BP Pulse Ox O2 Del Method 97.8 F 78 18 115/75 95 Room Air 07/24/23 05:44 07/24/23 05:44 07/24/23 05:44 07/24/23 05:44 07/24/23 07:26 07/24/23 07:26 Oxygen Delivery Method Room Air Weight: 218 lb 14.704 oz Body Mass Index (BMI) 38.7 Intake & Output: Intake and Output for Last 24 Hours 07/23/23 07/24/23 07/25/23 04:59 03:59 03:59 Intake Total 1000 / 1000 Balance 1000 / 1000 Lab / Micro Data 07/23/23 14:10 07/23/23 08:40 Labs: Laboratory Results - last 24 hr 07/23/23 08:40: WBC Cancelled, Corrected WBC Cancelled, RBC Cancelled, Hgb Cancelled, Hct Cancelled, MCV Cancelled, MCH Cancelled, MCHC Cancelled, RDW Std Deviation Cancelled, RDW Coeff of Megan Cancelled, Plt Count Cancelled, MPV Cancelled, Immature Gran % (Auto) Cancelled, Neut % (Auto) Cancelled, Lymph % (Auto) Cancelled, Shoshone % (Auto) Cancelled, Eos % (Auto) Cancelled, Baso % (Auto) Cancelled, Absolute Neuts (auto) Cancelled, Absolute Lymphs (auto) Cancelled, Total Counted Cancelled, Neutrophils % (Manual) Cancelled, Band Neutrophils % Cancelled, Lymphocytes % (Manual) Cancelled, Monocytes % (Manual) Cancelled, Eosinophils % (Manual) Cancelled, Basophils % (Manual) Cancelled, Metamyelocytes % Cancelled, Myelocytes % Cancelled, Promyelocytes % Cancelled, Blast Cells % Cancelled, Plasma Cell % (Manual) Cancelled, Other Cells % Cancelled, Nucleated RBC % Cancelled, Nucleated RBCs/100 WBC Cancelled, Differential Comment Cancelled, Diff Path Review Cancelled, Hypersegmented Neuts Cancelled, Atypical Lymphocytes Cancelled, Reactive Lymphocytes Cancelled, Smudge Cells Cancelled, Toxic Granulation Cancelled, Toxic Vacuolation Cancelled, Dohle Bodies Cancelled, Devan Rods Cancelled, Platelet Estimate Cancelled, Plt Morphology Comment Cancelled, RBC Morphology Cancelled 07/23/23 08:40: RBC Morphology Cancelled, Polychromasia Cancelled, Hypochromasia Cancelled, Poikilocytosis Cancelled, Basophilic Stippling Cancelled, Anisocytosis Cancelled, Microcytosis Cancelled, Macrocytosis Cancelled, Spherocytes Cancelled, Sickle Cells Cancelled, Target Cells Cancelled, Tear Drop Cells Cancelled, Ovalocytes Cancelled, Stomatocytes Cancelled, Griffin-Siletz Bodies Cancelled, Yandel Cells Cancelled, Bite Cells Cancelled, Crenated Cell Cancelled, Acanthocytes (Spur) Cancelled, Rouleaux Cancelled, Schistocytes Cancelled, Sodium 139, Potassium 4.1, Chloride 105, Carbon Dioxide 24.0, Anion Gap 10, BUN 17, Creatinine 0.74, Estim Creat Clear Calc 76.91, Est GFR (MDRD) Af Amer 107, Est GFR (MDRD) Non-Af 89, BUN/Creatinine Ratio 22.9 H, Glucose 151 H, Calcium 8.2 L, Total Bilirubin 0.40, AST 87 H, ALT 131 H, Alkaline Phosphatase 97, Total Protein 6.8, Albumin 3.4, Globulin 3.4, Albumin/Globulin Ratio 1.0 07/23/23 14:10: WBC 6.2, RBC 3.98 L, Hgb 11.4 L, Hct 37.0, MCV 93.0, MCH 28.6, MCHC 30.8 L, RDW Std Deviation 48.2 H, RDW Coeff of Megan 14.0, Plt Count 301, MPV 8.6, Immature Gran % (Auto) 0.600, Neut % (Auto) 62.5, Lymph % (Auto) 24.8, Shoshone % (Auto) 6.8, Eos % (Auto) 4.5, Baso % (Auto) 0.8, Absolute Neuts (auto) 3.8, Absolute Lymphs (auto) 1.53, Nucleated RBC % 0 Physical Exam Narrative General: Alert, Oriented x3, Cooperative, No apparent distress HEENT: Atraumatic, PERRLA, EOMI, Normocephalic Oral: Moist Mucosa Neck: Supple, No JVD Lungs: Diminished, Normal air movement, No rhonchi, No wheeze, No rales Cardiovascular: Regular rate, Regular Rhythm, Normal S1, Normal S2, No murmurs Abdomen: Soft, mildly tender, Non-Distended, No Hepato-splenomegaly Extremities: No edema, Capillary Refill Less than 3 Seconds Skin: No rashes, No breakdown Musculoskeletal: No Tenderness to Palpation of Joints or Extremities Neurological: Cranial nerves II-XII grossly intact, Motor Exam 5/5 strength throughout, Sensory exam intact to light touch and pain Psych/Mental Status: Normal Affect, Appropriate Assessment & Plan Assessment/Plan (1) Acute on chronic pancreatitis: PLAN: Plan 1. Acute on chronic pancreatitis secondary to pseudocysts with intractable abdominal pain and poor venous access: [facility]Patient is still has pain about 5-6/10 intensity despite being on lidocaine patch morphine and lidocaine. MRCP on 07/22 shows acute on chronic pancreatitis with 5.6 cm pseudocyst in the body of the pancreas. The main pancreatic duct is not dilated. Mild intra and extrahepatic biliary ductal dilation consistent with postcholecystectomy. Patient had mild fever at 101 Fahrenheit. She has pain management at [facility] ventricular combination of propofol lidocaine and ketamine acute 2 weeks which was not given because of lack of IV access. Patient is supposed to have PICC line until a port is placed with the vascular surgeon, scheduled in October.Lipase is more than 250, not more than 3 times. 07/24/2023: Belly pain is made a little bit better today, she would like to try low-fat diet we will monitor. Do recommend following up with her fabrication inspector and pain management doctor on discharge discussed expectations for her chronic pancreatitis 2. Factor V Leiden mutation causing CVA, DVT and PE; status post IVC filter placement on chronic Xarelto -continue Xarelto as previous. 3. History of seizure disorder; on Vimpat and Depakote -continue these medications as previous and check Depakote level. Finally, we will give IV Ativan as needed for breakthrough seizure activity. 4. Obesity with BMI of 38.8 this admission - weight loss will be encouraged. 5. History of herpes on valacyclovir -continue valacyclovir as previous. 6. History of substance abuse with marijuana -patient denies current substance abuse. Use of any illicit drugs was discouraged. 7. History of tobacco abuse -patient now only smokes e-cigarettes which will be discouraged. 8. Restless leg syndrome -continue Requip as previous. 9. Depression with anxiety -continue home medications as previous. 10. GERD-continue PPI. 11. Past surgical history includes history of total abdominal hysterectomy, history of appendectomy and history of cholecystectomy - Noted. DVT: Xarelto Charges/Coding Visit Charges Inpatient E&M: 98971 Subs Hosp L2
[2023-07-24 08:39] LABS: ALB/GLOB Ratio 0.8 RATIO (0.9-2.4); AST(SGOT) 104 U/L (15-37); Alanine Aminotransfer ALT/SGPT 126 U/L (13-56); Albumin, Serum 2.7 g/dL (3.2-5.0); Alkaline Phosphatase 89 U/L (45-117); Anion Gap 7 (5-15); BUN 9 mg/dL (7-18); BUN/Creat Ratio 14.4 RATIO (10-20); Chloride 107 mmol/L (98-107); Creatinine, Serum 0.62 mg/dL (0.55-1.02); EST Glomerular Filtration Rate 108 mL/min (>60); Est Glom Filt Rate - Afr Amer 131 mL/min (>60); Estimated Creatinine Clearance 91.79 ml/min; Globulin 3.5 g/dL (2.2-4.2); Glucose 139 mg/dL (74-106); Potassium 3.7 mmol/L (3.5-5.1); Protein, Total 6.2 g/dL (6.4-8.2); Sodium Level 137 mmol/L (136-145)
[2023-07-24 10:00] VITALS: BP 126/59; PULSE 64; RESP 18; TEMP 37.1; O2SAT 100
[2023-07-24] MEDS: Ondansetron ODT 4 MG Tablet PO ×2 (10:06→20:44)
[2023-07-24] MEDS: Fluconazole 100 MG Tablet PO (10:08)
[2023-07-24] MEDS: Divalproex Sodium 250 MG Tablet PO ×2 (10:09→20:47)
[2023-07-24] MEDS: Ascorbic Acid 500 MG Tablet 1000 MG PO (10:09)
[2023-07-24 10:10] VITALS: BP 126/59; PULSE 64
[2023-07-24] MEDS: Pantoprazole Sodium 40 MG Tablet PO ×2 (10:10→20:49)
[2023-07-24] MEDS: Metoprolol(XL)Succ 25 MG Tablet PO (10:10)
[2023-07-24] MEDS: Pramipexole Di-HCl 0.25 MG Tablet PO ×2 (10:10→20:47)
[2023-07-24] MEDS: Lacosamide 100 MG Tablet PO (10:11)
[2023-07-24] MEDS: Rivaroxaban 10 MG Tablet PO (10:11)
[2023-07-24] MEDS: Polyethylene Glycol 3350 17 GM PACKET PO (10:11)
[2023-07-24] MEDS: Senna/Docusate Sodium 1 Tablet PO ×2 (10:12→20:49)
[2023-07-24] MEDS: ARIPiprazole 10 MG Tablet PO (10:12)
[2023-07-24] MEDS: Nystatin/Triamcin Cream Tube 1 APPLIC TOPICAL ×3 (10:13→20:50)
[2023-07-24] MEDS: Benztropine Mesylate 0.5 MG TABLET PO ×2 (10:16→20:44)
[2023-07-24] MEDS: Potassium Chloride Oral Tablet 20 MEQ PO ×3 (11:30→16:42)
[2023-07-24] MEDS: 0.9% Saline Lock 10 ML Syringe IV ×2 (14:38→18:20)
[2023-07-24 16:57] LABS: Amphetamine Urine VISTA NEGATIVE (<1000 ng/mL); Barbiturate Urine VISTA NEGATIVE (< 200 ng/mL); Benzodiazepine Urine VISTA NEGATIVE (< 200 ng/mL); Cocaine Urine VISTA NEGATIVE (< 300 ng/mL); Ecstacy Urine VISTA NEGATIVE (< 500 ng/mL); Methadone Urine VISTA NEGATIVE (< 300 ng/mL); PCP Urine VISTA NEGATIVE (< 25 ng/mL); THC Urine VISTA POSITIVE (< 50 ng/mL); Vista UDS pH Range 6
[2023-07-24] MEDS: Lactulose 20 GM/30 ML UDC 10 GM PO (18:21)
[2023-07-24] MEDS: clonazePAM 0.5 MG Tablet PO (18:22)
[2023-07-24] MEDS: Lacosamide 100 MG Tablet 200 MG PO (20:45)
[2023-07-24] MEDS: Fenofibrate 145 MG Tablet PO (20:46)
[2023-07-24] MEDS: Venlafaxine XR 75 MG Capsule 225 MG PO (20:46)
[2023-07-24] MEDS: Methenamine Hippurate 1 GM Tablet PO (20:46)
[2023-07-24] MEDS: MELATONIN 10 MG TABLET PO (20:48)
[2023-07-24] MEDS: Albuterol 2.5 MG/3 ML VIAL.NEB. INHALATION (23:50)
[2023-07-24 23:51] VITALS: PULSE 87; RESP 20
[2023-07-25] VITALS (7 sets, daily range): BP systolic 115–144; BP diastolic 79–86; PULSE 70–101; RESP 16–18; TEMP 36.5–37.2; O2SAT 96–100; BMI 40.0
[2023-07-25] MEDS: HYDROmorphone 1 MG/ML Syringe IV ×2 (03:21→07:41)
[2023-07-25] MEDS: 0.9% Normal Saline (1000mL) 1,000 ML 125 ML IV ×3 (03:24→18:50)
[2023-07-25] MEDS: Lactulose 20 GM/30 ML UDC 10 GM PO (06:15)
[2023-07-25] MEDS: clonazePAM 0.5 MG Tablet PO ×2 (06:15→22:48)
[2023-07-25] MEDS: BENZOCAINE/MENTHOL 1 LOZENGE 2 LOZENGE MUCOUS MEM ×2 (06:15→22:49)
[2023-07-25] MEDS: ARIPiprazole 10 MG Tablet PO (07:43)
[2023-07-25] MEDS: Benztropine Mesylate 0.5 MG TABLET PO ×2 (07:43→22:50)
[2023-07-25] MEDS: Potassium Chloride Oral Tablet 20 MEQ PO ×3 (07:43→16:24)
[2023-07-25] MEDS: Senna/Docusate Sodium 1 Tablet PO ×2 (07:43→22:51)
[2023-07-25] MEDS: Ascorbic Acid 500 MG Tablet 1000 MG PO (07:43)
[2023-07-25] MEDS: Polyethylene Glycol 3350 17 GM PACKET PO (07:44)
[2023-07-25] MEDS: Pramipexole Di-HCl 0.25 MG Tablet PO ×2 (07:44→22:50)
[2023-07-25] MEDS: Pantoprazole Sodium 40 MG Tablet PO ×2 (07:44→22:51)
[2023-07-25] MEDS: Metoprolol(XL)Succ 25 MG Tablet PO (07:44)
[2023-07-25] MEDS: Divalproex Sodium 250 MG Tablet PO ×2 (07:44→22:50)
[2023-07-25] MEDS: Rivaroxaban 10 MG Tablet PO (07:45)
[2023-07-25] MEDS: Lacosamide 100 MG Tablet PO (07:47)
[2023-07-25] MEDS: HYDROmorphone 2 MG TABLET PO ×4 (11:02→22:49)
--- NOTE | 2023-07-25 14:55 | CASEMGMT ---
KAY CM: Notice received from [facility] that pt has requested to appeal her discharge ( ). Upon review of pt's orders, noted discharge order has not been placed and pt has not been discharged. Call to [facility] and per Jermaine, insurance claim representative, a letter stating pt has not been discharge needs submitted to [facility] and this appeal will be closed. A letter stating the same was faxed to [facility] at [phone] with fax confirmation of receipt received. Pt has the right to file an appeal if she chooses when she has officially been discharged as indicated by a discharge order. Thanh Reid RN, Director of Care Mgmt
--- NOTE | 2023-07-25 15:06 | CASEMGMT ---
KAY LAWSON into pt room as pt has appealed her dc but there is not a dc in at this time, pt made aware that because she does not have a dc order in that this is not a valid dc and she may appeal when there is a dc in. Pt became argumentative and asks questions that the bedside nurse would need to answer regarding her picc line. Pt then asked why this RN LULU was in her room and to leave. Made her aware again of the reason. Pt then continued to state that she will just stay in the hospital or go to the ER and get pain meds and leave if they will not let her dc with the picc line. KAY LAWSON again reiterated reason for being in room. Pt asked KAY LAWSON to leave.
--- NOTE | 2023-07-25 18:27 | PCM.PN.HOSP ---
Reason for Visit Reason for Visit: Diagnoses Acute pancreatitis without necrosis or infection, unspecified (07/22/23) Other chronic pancreatitis (07/22/23) Other specified health status (07/22/23) Subjective Subjective Patient was seen and examined today, I had a brief conversation with her in the morning and she became angry and agitated, she asked if it was permissible to tape me and video me, I told her it was not and I left the room, I returned with 2 nurses and had another discussion with her, I asked her whether she felt she could go home today, patient stated that she felt that tomorrow would be better, I told her that I will take her off the IV Dilaudid and transition her to oral Dilaudid. She also had the impression that she was going home with a PICC line, I told her that this was not permissible that we did not send patients home with PICC lines unless they had a need for IV antibiotics. I reached out to her family physician's office to see if we could get her scheduled for an outpatient Mediport, as of the time of this dictation, I have not heard from her physician's office again today. I briefly talked with general surgery about the possibility of putting a Mediport and while she was here but unfortunately the patient is on chronic Xarelto. I received word late this afternoon from case management that the patient wanted to contest a discharge although she had not been discharged today. Objective Data Objective Data Vital Signs: Vital Signs Temp Pulse Resp BP Pulse Ox O2 Del Method 99 F 83 16 125/79 H 97 Room Air 07/25/23 15:08 07/25/23 15:08 07/25/23 15:08 07/25/23 15:08 07/25/23 15:08 07/25/23 15:08 Oxygen Delivery Method Room Air Weight: 102.597 kg Body Mass Index (BMI) 40.0 Intake & Output: Intake and Output for Last 24 Hours 07/24/23 07/24/23 07/25/23 00:59 23:59 23:59 Intake Total 2641.66 / 2641.66 Output Total Balance 2641.66 / 2641.66 Lab / Micro Data 07/23/23 14:10 07/24/23 06:00 Physical Exam Const alert, oriented x3, no apparent distress and average body habitus Constitutional Narrative: Patient is morbidly obese General Appearance: cooperative, well kempt and well developed Orientation / Consciousness: awake, oriented to person, oriented to place and oriented to time HEENT normocephalic and moist oral mucous membranes Eyes PERRL, EOMs intact bilaterally and conjunctivae normal Neck supple, no JVD, thyroid normal and no carotid bruits General: trachea midline Resp normal respiratory effort, no retractions, no use of accessory muscles and clear to auscultation bilaterally Auscultation: Negative for rales, rhonchi or wheezes Cardio regular rate, regular rhythm, S1 normal heart sound, S2 normal heart sound, no murmurs, no rub and no gallops GI normal to inspection, nondistended, normoactive bowel sounds, soft to palpation, non-tender and non-distended Extremity no clubbing, cyanosis or edema Skin no rashes or lesions noted General Skin Exam: no breakdown Neuro oriented x3, CN's II-XII intact bilaterally, moves all extremities, no focal motor deficits and no sensory deficits noted Sensorium / Orientation: awake, alert, oriented to person, oriented to place and oriented to time Speech: speech normal Psych affect normal Assessment & Plan Assessment/Plan (1) Acute on chronic pancreatitis: PLAN: Plan 1. Chronic recurrent pancreatitis-again I discussed her medical care in depth with her in the presence of 2 additional nurses, I requested that she call her pain management physician to schedule a follow-up appointment which she said she did, I try to get a hold of her pain management physician but the 2 extensions that I dialed came up with voicemail and I left a message for them to contact me which they have not at the time of this dictation. Patient was transitioned to oral Dilaudid from IV Dilaudid today. Again I did talk with her family physician's office today and they will attempt to get her set up for an outpatient Mediport insertion with interventional radiology at [facility]. #2 morbid obesity-complicates care, medical course, recovery, and prognosis #3 factor V Leiden mutation-patient will continue on Xarelto #4 seizure disorder-patient will remain on Vimpat and Depakote #5 past history of substance abuse, I discussed this with the patient, I told her it was inappropriate to send the patient home with a PICC line that had a past history of drug abuse, she states she never did IV drugs, I told her that she would not be going home with a PICC line in. Total clinical time spent by myself addressing the patient's medical issues, reviewing all of her data, and collaborating with patient's care team: 50 minutes Charges/Coding Visit Charges Inpatient E&M: 04086 Subs Hosp L3
[2023-07-25] MEDS: Lacosamide 100 MG Tablet 200 MG PO (22:49)
[2023-07-25] MEDS: Venlafaxine XR 75 MG Capsule 225 MG PO (22:50)
[2023-07-25] MEDS: Methenamine Hippurate 1 GM Tablet PO (22:51)
[2023-07-25] MEDS: Fenofibrate 145 MG Tablet PO (22:51)
[2023-07-25] MEDS: MELATONIN 10 MG TABLET PO (22:51)
[2023-07-26] MEDS: HYDROmorphone 2 MG TABLET PO ×4 (02:37→15:02)
[2023-07-26] MEDS: 0.9% Normal Saline (1000mL) 1,000 ML 125 ML IV (02:38)
[2023-07-26 02:45] VITALS: BP 134/86; PULSE 80; RESP 18; TEMP 36.9; O2SAT 96
[2023-07-26 06:00] VITALS: BMI 39.8
[2023-07-26 09:23] VITALS: BP 130/77; PULSE 88; RESP 18; TEMP 37; O2SAT 97
[2023-07-26 09:27] VITALS: PULSE 88
[2023-07-26] MEDS: Potassium Chloride Oral Tablet 20 MEQ PO ×3 (09:27→16:50)
[2023-07-26] MEDS: Divalproex Sodium 250 MG Tablet PO (09:27)
[2023-07-26] MEDS: Pantoprazole Sodium 40 MG Tablet PO (09:27)
[2023-07-26] MEDS: Pramipexole Di-HCl 0.25 MG Tablet PO (09:27)
[2023-07-26] MEDS: Ascorbic Acid 500 MG Tablet 1000 MG PO (09:27)
[2023-07-26] MEDS: Metoprolol(XL)Succ 25 MG Tablet PO (09:27)
[2023-07-26] MEDS: Polyethylene Glycol 3350 17 GM PACKET PO (09:27)
[2023-07-26] MEDS: Senna/Docusate Sodium 1 Tablet PO (09:27)
[2023-07-26] MEDS: Rivaroxaban 10 MG Tablet PO (09:27)
[2023-07-26] MEDS: Benztropine Mesylate 0.5 MG TABLET PO (09:28)
[2023-07-26] MEDS: Lacosamide 100 MG Tablet PO (09:50)
[2023-07-26] MEDS: ARIPiprazole 10 MG Tablet PO (09:51)
--- NOTE | 2023-07-26 11:07 | CASEMGMT ---
Addendum entered by Maricarmen Reed 07/26/23 16:17: Received tc back from [facility], the cost is zero for pt and they will deliver supplies tomorrow. Pt aware. Addendum entered by Maricarmen Reed 07/26/23 16:15: TC to [facility], spoke with [facility], she confirmed all information was received but states that the intermediate project manager is working on the case and will not be able to process this today. Updated hospitalist who is ok if pt goes home as long as she is willing to come into the infusion center for a flush if this can not be delivered tomorrow or if the cost is not affordable to her. Charge nurse changed picc dressing today and pt to have port placed on the . Pt is aware that this will not need to be changed any longer. Pt is agreeable to this and will come in if the home infusion supplies do not work out. Addendum entered by Maricarmen Reed 07/26/23 12:30: Referral via careport sent to [facility] at this time. Original Note: KAY LAWSON spoke with hospitalist who is agreeable to pt flushing her own picc line as she does not qualify for [facility] as she is not homebound. KAY LAWSON into pt room, she is interested in flushing her own picc. She is aware that she will need to come into the infusion center weekly for dressing changes. Provided pt with a local in network list of Infusion Companies, pt chose [facility]. Pt is aware KAY LAWSON will make aware of any associated costs. Pt denies further homegoing needs.
--- NOTE | 2023-07-26 11:40 | DCINST_ITS ---
Discharge Instructions Diet Discharge Diet: No restrictions Activity Discharge Activity: Return to Normal Activity Weight Bearing Status: Full weight bearing Follow Up Care Test Results: Test results from this visit will be discussed in further detail at your follow- up appointment, if applicable. Discharge Plan Admission Admit Date/Time: 07/22/23 17:10 Primary Reason for Your Visit: chronic recurrent Attending Provider: Meño Pepper Primary Care Provider: Rin Rivera NP Consulting Providers: Jermaine Tee; Wyatt Collins; Brandon Cox Instructions Additional Instructions / Restrictions: Watch for any signs of infection from your PICC line, if you have any problems with the PICC line come to the ER or contact your family physician, if you have any unexplained fever, contact your family physician or come to the ER. If you have any unusual swelling in the right arm, come to the emergency room or contact your family physician. Follow-up with pain management as soon as possible, contact your family physician's office this week to verify that you are set up to have a Mediport inserted, Laura in the physician's office is going to set this up. Discharge Orders/Prescriptions Prescriptions: New hydromorphone 2 mg Tablet 2 mg PO Q4H PRN PRN (Reason: Pain Score 4-10) 3 Days Qty: 12 0RF Continued ondansetron 4 mg tablet,disintegrating 4 mg PO Q6H PRN (Reason: nausea) omeprazole 40 mg capsule,delayed release(DR/EC) 40 mg PO BID furosemide 40 MG tablet 40 mg PO DAILY potassium chloride 10 MEQ tablet 20 meq PO TID valacyclovir [Valtrex] 500 MG tablet 500 mg PO DAILY melatonin 3 MG capsule 10 mg PO QHS Linzess 290 mcg capsule 290 mcg PO DAILY Patient Comments: take 1 capsule by mouth once daily methenamine hippurate [Hiprex] 1 gram Tablet 1 g PO QHS ascorbic acid (vitamin C) [Vitamin C] 1,000 mg Tablet 1 g PO DAILY clonazepam [Klonopin] 0.5 mg Tablet 0.5 mg PO BID PRN (Reason: Seizures) venlafaxine [Effexor XR] 150 mg Capsule,Extended Release 24hr 225 mg PO QHS Xarelto 10 mg tablet 10 mg PO DAILY ropinirole 0.5 mg Tablet 0.5 mg PO BID lactulose 10 gram/15 mL Solution 15 ml PO BID PRN PRN (Reason: Constipation) cholecalciferol (vitamin D3) 1,250 mcg (50,000 unit) capsule 50,000 unit PO FR Patient Comments: TAKE 1 CAPSULE BY MOUTH EVERY WEEK lacosamide [Vimpat] 100 mg Tablet 100 mg PO DAILY lacosamide [Vimpat] 200 mg Tablet 200 mg PO QHS aripiprazole 10 mg tablet 10 mg PO DAILY benztropine 0.5 mg tablet 0.5 mg PO BID Patient Comments: TAKE 1 TABLET BY MOUTH TWICE DAILY As Needed for eps divalproex 250 mg tablet,delayed release (DR/EC) 250 mg PO Q12H Patient Comments: TAKE 1 TABLET TWICE DAILY for mood clonidine HCl 0.2 mg tablet 0.2 mg PO DAILY metoprolol succinate 25 mg tablet extended release 24 hr 25 mg PO DAILY Patient Comments: TAKE 1 TABLET BY MOUTH DAILY mirtazapine 7.5 mg tablet 7.5 mg PO DAILY Patient Comments: TAKE 1 TABLET BY MOUTH DAILY AT BEDTIME hydrochlorothiazide 25 mg tablet 25 mg PO DAILY Qty: 1 0RF Rx Instructions: take this only if necessary fenofibrate nanocrystallized 145 mg tablet 145 mg PO QHS Referrals / Follow Up: Rin Rivera RADIO ENGINEERING TEACHER, RADIO ENGINEERING TEACHER-C [Primary Care Provider] - Within 2 Weeks (Rin is out on maternity leave, you will need to schedule an appointment with someone else in the office) Disposition Disposition (needs filled in before D/C Order can be placed): Home, Self Care
--- NOTE | 2023-07-26 11:54 | DS.PCM_ITS ---
Providers Date of Admission: 07/22/23 Date of Discharge: 07/26/23 Primary Care Physician: Rin Rivera, ALLEN-C Reason For Visit: ACUTE ON CHRONIC PANCREATITIS Diagnosis Discharge Diagnosis (1) Acute on chronic pancreatitis: Status: Chronic Code(s): K85.90 - Acute pancreatitis without necrosis or infection, unspecified; K86.1 - Other chronic pancreatitis Plan 1. Chronic recurrent pancreatitis-again I discussed her medical care in depth with her in the presence of 2 additional nurses, I requested that she call her pain management physician to schedule a follow-up appointment which she said she did, I try to get a hold of her pain management physician but the 2 extensions that I dialed came up with voicemail and I left a message for them to contact me which they have not at the time of this dictation. Patient was transitioned to oral Dilaudid from IV Dilaudid today. Again I did talk with her family physician's office today and they will attempt to get her set up for an outpatient Mediport insertion with interventional radiology at [facility]. #2 morbid obesity-complicates care, medical course, recovery, and prognosis #3 factor V Leiden mutation-patient will continue on Xarelto #4 seizure disorder-patient will remain on Vimpat and Depakote #5 past history of substance abuse, I discussed this with the patient, I told her it was inappropriate to send the patient home with a PICC line that had a past history of drug abuse, she states she never did IV drugs, I told her that she would not be going home with a PICC line in. Total clinical time spent by myself addressing the patient's medical issues, reviewing all of her data, and collaborating with patient's care team: 50 minutes Medications at Discharge Home Medications furosemide 40 mg tablet 40 mg PO DAILY water pill 09/10/16 potassium chloride 10 mEq tablet,extended release(part/cryst) 20 meq PO TID supplment 09/10/16 valacyclovir 500 mg tablet (Valtrex) 500 mg PO DAILY herpes 10/25/18 melatonin 3 mg capsule 10 mg PO QHS sleep 05/26/19 linaclotide 290 mcg capsule (Linzess) 290 mcg PO DAILY bowels 05/28/21 ascorbic acid (vitamin C) 1,000 mg tablet (Vitamin C) 1 g PO DAILY supplement 12/03/21 clonazepam 0.5 mg tablet (Klonopin) 0.5 mg PO BID PRN Seizures 12/03/21 methenamine hippurate 1 gram tablet (Hiprex) 1 g PO QHS bladder infections 12/03/21 venlafaxine 150 mg capsule,extended release 24 hr (Effexor XR) 225 mg PO QHS mood 12/03/21 rivaroxaban 10 mg tablet (Xarelto) 10 mg PO DAILY blood thinner 07/07/22 cholecalciferol (vitamin D3) 1,250 mcg (50,000 unit) capsule 50,000 unit PO FR supplement 02/05/23 lacosamide 100 mg tablet (Vimpat) 100 mg PO DAILY seizures 02/05/23 lacosamide 200 mg tablet (Vimpat) 200 mg PO QHS seizures 02/05/23 lactulose 10 gram/15 mL oral solution 15 ml PO BID PRN PRN Constipation 02/05/23 ropinirole 0.5 mg tablet 0.5 mg PO BID restless legs 02/05/23 omeprazole 40 mg capsule,delayed release 40 mg PO BID 02/23/23 ondansetron 4 mg disintegrating tablet 4 mg PO Q6H PRN nausea 02/23/23 fenofibrate nanocrystallized 145 mg tablet 145 mg PO QHS 05/07/23 aripiprazole 10 mg tablet 10 mg PO DAILY 06/23/23 benztropine 0.5 mg tablet 0.5 mg PO BID 06/23/23 divalproex 250 mg tablet,delayed release 250 mg PO Q12H 06/23/23 clonidine HCl 0.2 mg tablet 0.2 mg PO DAILY 07/22/23 metoprolol succinate 25 mg tablet,extended release 24 hr 25 mg PO DAILY 07/22/23 mirtazapine 7.5 mg tablet 7.5 mg PO DAILY 07/22/23 hydrochlorothiazide 25 mg tablet 25 mg PO DAILY #1 TAB 07/26/23 hydromorphone 2 mg tablet 2 mg PO Q4H PRN PRN Pain Score 4-10 3 days #12 tabs 07/26/23 Hospital Course Operations None Procedures PICC line placement Summary of Care Provided Minutes Spent on Discharge: 33 Hospital Course: This 47-year-old white female was seen in the emergency room at [facility] with a chief complaint of abdominal pain, patient has been hospitalized many times here for the same complaint was diagnosed with chronic pancreatitis. She sees a physician at [facility] for pain management, his name is Dr. Foss, she gets ketamine infusions as an outpatient for chronic pain, the last time she went for an infusion according to the patient, they were unable to obtain IV access. She also stated that she was set up for a Mediport and saw a general surgeon who stated that he did not place Mediport for chronic pain and she would have to go elsewhere. IV access was attempted in the emergency room but was unsuccessful, patient was admitted to [place] [id number] and a PICC line was inserted and she was given IV narcotics for pain. When I saw the patient, I had lengthy discussions with her about going home with a PICC line initially I was not in favor of it but after rethinking the situation, I felt it would be prudent to continue the PICC line as an outpatient until the patient had a Mediport inserted. I went over the hazards of going home with the Mediport including infection, bleeding, and thrombus-patient under stood these risks and excepted them. Furthermore I contacted general surgery here who declined to place a Mediport due to the fact the patient was on full anticoagulation and required her to be off this medication for 3 days before a Mediport was considered. I called her pain management office and talked with the content manager there, she stated that they did not order Mediport's, I then called and talked to her PCPs office, who graciously arranged for the patient to have a Mediport placement on 08/02/2023 at 11 AM. Patient was notified of this, arrangements were made for her to go home with a PICC line temporarily. Patient was somewhat argumentative during her hospital stay to this examiner at first. On 07/26/2023, patient was seen and examined: On examination she appeared in good health and spirits, she does not appear to be in any distress. Vital signs as documented. Skin warm and dry and without overt rashes. Neck without JVD, thyroid appears normal, trachea is midline, neck is supple. Lungs clear, normal air movement was noted. Heart exam notable for regular rhythm, normal sounds and absence of murmurs, rubs or gallops. Abdomen unremarkable and without evidence of organomegaly, masses, or abdominal aortic enlargement, bowel sounds are present in all 4 quadrants, no abdominal tenderness was noted. Extremities nonedematous, no cyanosis was noted, no clubbing was noted. Neuro: Cranial nerves II through XII are grossly intact, no focal motor deficits were noted, sensation to light touch and pinprick is intact, motor exam 5/5 throughout. Psych: Patient is alert and oriented x3, she does not appear anxious or depressed, she does not appear agitated. On 07/26/2023, patient was seen and examined and felt to be stable for discharge home Weight / BMI Weight Weight: 101.9 kg Body Mass Index (BMI) 39.8 ABG / Lab / Microbiology Data 07/23/23 14:10 07/24/23 06:00 D/C Instructions Discharge Diet: No restrictions Weight Bearing Status: Full weight bearing Meaningful Use Info Meaningful Use Diagnoses (Choose all that apply): None applicable Discharge Plan Admission Admit Date/Time: 07/22/23 17:10 Primary Reason for Your Visit: chronic recurrent Attending Provider: Meño Pepper Primary Care Provider: Rin Rivera NP Consulting Providers: Jermaine Tee; Wyatt Collins; Brandon Cox Instructions Additional Instructions / Restrictions: Watch for any signs of infection from your PICC line, if you have any problems with the PICC line come to the ER or contact your family physician, if you have any unexplained fever, contact your family physician or come to the ER. If you have any unusual swelling in the right arm, come to the emergency room or contact your family physician. Follow-up with pain management as soon as possible, contact your family physician's office this week to verify that you are set up to have a Mediport inserted, Laura in the physician's office is going to set this up. You have an appointment August 02, 2023 at 11:00 with interventional radiology. you may call [facility] for directions on where to go. Discharge Orders/Prescriptions Prescriptions: New hydromorphone 2 mg Tablet 2 mg PO Q4H PRN PRN (Reason: Pain Score 4-10) 3 Days Qty: 12 0RF Continued ondansetron 4 mg tablet,disintegrating 4 mg PO Q6H PRN (Reason: nausea) omeprazole 40 mg capsule,delayed release(DR/EC) 40 mg PO BID furosemide 40 MG tablet 40 mg PO DAILY potassium chloride 10 MEQ tablet 20 meq PO TID valacyclovir [Valtrex] 500 MG tablet 500 mg PO DAILY melatonin 3 MG capsule 10 mg PO QHS Linzess 290 mcg capsule 290 mcg PO DAILY Patient Comments: take 1 capsule by mouth once daily methenamine hippurate [Hiprex] 1 gram Tablet 1 g PO QHS ascorbic acid (vitamin C) [Vitamin C] 1,000 mg Tablet 1 g PO DAILY clonazepam [Klonopin] 0.5 mg Tablet 0.5 mg PO BID PRN (Reason: Seizures) venlafaxine [Effexor XR] 150 mg Capsule,Extended Release 24hr 225 mg PO QHS Xarelto 10 mg tablet 10 mg PO DAILY ropinirole 0.5 mg Tablet 0.5 mg PO BID lactulose 10 gram/15 mL Solution 15 ml PO BID PRN PRN (Reason: Constipation) cholecalciferol (vitamin D3) 1,250 mcg (50,000 unit) capsule 50,000 unit PO FR Patient Comments: TAKE 1 CAPSULE BY MOUTH EVERY WEEK lacosamide [Vimpat] 100 mg Tablet 100 mg PO DAILY lacosamide [Vimpat] 200 mg Tablet 200 mg PO QHS aripiprazole 10 mg tablet 10 mg PO DAILY benztropine 0.5 mg tablet 0.5 mg PO BID Patient Comments: TAKE 1 TABLET BY MOUTH TWICE DAILY As Needed for eps divalproex 250 mg tablet,delayed release (DR/EC) 250 mg PO Q12H Patient Comments: TAKE 1 TABLET TWICE DAILY for mood clonidine HCl 0.2 mg tablet 0.2 mg PO DAILY metoprolol succinate 25 mg tablet extended release 24 hr 25 mg PO DAILY Patient Comments: TAKE 1 TABLET BY MOUTH DAILY mirtazapine 7.5 mg tablet 7.5 mg PO DAILY Patient Comments: TAKE 1 TABLET BY MOUTH DAILY AT BEDTIME hydrochlorothiazide 25 mg tablet 25 mg PO DAILY Qty: 1 0RF Rx Instructions: take this only if necessary fenofibrate nanocrystallized 145 mg tablet 145 mg PO QHS Referrals / Follow Up: Rin Rivera NP, [employer]-C [Primary Care Provider] - 08/09/23 1:00 pm (Rin is out on maternity leave, you will need to schedule an appointment with someone else in the office) Disposition Disposition (needs filled in before D/C Order can be placed): Home, Self Care Charges/Coding Visit Charges Inpatient E&M: 82912 Disch Hosp >30min
[2023-07-26] MEDS: clonazePAM 0.5 MG Tablet PO (13:02)
--- NOTE | 2023-07-26 13:30 | PHA.DC.MC.R ---
Pharmacy [facility] has performed discharge medication reconciliation and counseling for this patient. The patient's discharge medication list was reviewed for discrepancies and discrepancies were resolved. The patient was counseled on the following discharge medications and changes in medications for homegoing were reviewed. The Reason for Use, instructions for use, and potential side effects were reviewed for all new medications. The patient's questions regarding all of their medications were answered. 1. Hydromorphone 2 mg PO Q4H PRN pain 4-10/10 The patient was able to verbally demonstrate an understanding of their discharge medications. Medications at Discharge Home Medications furosemide 40 mg tablet 40 mg PO DAILY water pill 09/10/16 potassium chloride 10 mEq tablet,extended release(part/cryst) 20 meq PO TID supplment 09/10/16 valacyclovir 500 mg tablet (Valtrex) 500 mg PO DAILY herpes 10/25/18 melatonin 3 mg capsule 10 mg PO QHS sleep 05/26/19 linaclotide 290 mcg capsule (Linzess) 290 mcg PO DAILY bowels 05/28/21 ascorbic acid (vitamin C) 1,000 mg tablet (Vitamin C) 1 g PO DAILY supplement 12/03/21 clonazepam 0.5 mg tablet (Klonopin) 0.5 mg PO BID PRN Seizures 12/03/21 methenamine hippurate 1 gram tablet (Hiprex) 1 g PO QHS bladder infections 12/03/21 venlafaxine 150 mg capsule,extended release 24 hr (Effexor XR) 225 mg PO QHS mood 12/03/21 rivaroxaban 10 mg tablet (Xarelto) 10 mg PO DAILY blood thinner 07/07/22 cholecalciferol (vitamin D3) 1,250 mcg (50,000 unit) capsule 50,000 unit PO FR supplement 02/05/23 lacosamide 100 mg tablet (Vimpat) 100 mg PO DAILY seizures 02/05/23 lacosamide 200 mg tablet (Vimpat) 200 mg PO QHS seizures 02/05/23 lactulose 10 gram/15 mL oral solution 15 ml PO BID PRN PRN Constipation 02/05/23 ropinirole 0.5 mg tablet 0.5 mg PO BID restless legs 02/05/23 omeprazole 40 mg capsule,delayed release 40 mg PO BID 02/23/23 ondansetron 4 mg disintegrating tablet 4 mg PO Q6H PRN nausea 02/23/23 fenofibrate nanocrystallized 145 mg tablet 145 mg PO QHS 05/07/23 aripiprazole 10 mg tablet 10 mg PO DAILY 06/23/23 benztropine 0.5 mg tablet 0.5 mg PO BID 06/23/23 divalproex 250 mg tablet,delayed release 250 mg PO Q12H 06/23/23 clonidine HCl 0.2 mg tablet 0.2 mg PO DAILY 07/22/23 metoprolol succinate 25 mg tablet,extended release 24 hr 25 mg PO DAILY 07/22/23 mirtazapine 7.5 mg tablet 7.5 mg PO DAILY 07/22/23 hydrochlorothiazide 25 mg tablet 25 mg PO DAILY #1 TAB 07/26/23 hydromorphone 2 mg tablet 2 mg PO Q4H PRN PRN Pain Score 4-10 3 days #12 tabs 07/26/23
[2023-07-26 14:37] VITALS: BP 136/84; PULSE 80; RESP 18; TEMP 36.7; O2SAT 100
[2023-07-26] MEDS: 0.9% Saline Lock 10 ML Syringe IV (15:03)
[2023-07-26] MEDS: 0.9 % NaCl (Sterile) Posiflush 10 mL IV (15:17)
== END 2023-07-26 17:57 | disposition home or self-care (01) | DRG 439 ==
LOC: ED 16:03 → MS3 17:15
PROVIDERS: Internal Medicine; Admitting Provider Internal Medicine; Emergency Provider Emergency Medicine; PCP Nurse Practitioner Family; Visit Provider Internal Medicine
DX: K85.90 Acute pancreatitis without necrosis or infection, unspecified (principal); D68.51 Activated protein C resistance; I50.32 Chronic diastolic (congestive) heart failure; Z68.41 Body mass index [BMI] 40.0-44.9, adult; K86.3 Pseudocyst of pancreas; I11.0 Hypertensive heart disease with heart failure; B00.9 Herpesviral infection, unspecified; G40.909 Epilepsy, unspecified, not intractable, without status epilepticus; E66.01 Morbid (severe) obesity due to excess calories; K86.1 Other chronic pancreatitis; G25.81 Restless legs syndrome; F17.210 Nicotine dependence, cigarettes, uncomplicated; F41.8 Other specified anxiety disorders; F12.90 Cannabis use, unspecified, uncomplicated; E78.5 Hyperlipidemia, unspecified; K21.9 Gastro-esophageal reflux disease without esophagitis; Z95.828 Presence of other vascular implants and grafts; Z79.01 Long term (current) use of anticoagulants; Z79.2 Long term (current) use of antibiotics; R73.9 Hyperglycemia, unspecified; Z90.710 Acquired absence of both cervix and uterus; Z90.79 Acquired absence of other genital organ(s); Z90.49 Acquired absence of other specified parts of digestive tract
CPT/HCPCS: 36415; 36569; 74181; 80053; 80164; 80307; 83690; 85025; 92610; 94640; 97802; 99284; 99406; J7030; A4216; J2405

== ENCOUNTER 2023-08-02 11:02 | Emergency (ER) | payer MEDICARE, SELFPAY ==
[2023-08-02 11:04] VITALS: BP 111/77; PULSE 84; RESP 16; TEMP 36.2; O2SAT 98; BMI 38.6
--- NOTE | 2023-08-02 11:21 | EDS_ITS ---
HPI History of Present Illness Chief Complaint: Abd Pain Informant: patient Onset/Context/Timing Onset: Days Context: Gradual Onset Narrative Narrative: Patient has a history of chronic pancreatitis. She reports increased pain wrapping around the right upper quadrant with some nausea and vomiting over the past 4 days. Patient was just discharged from the hospital on the seventh. She was discharged home with a PICC line and per discharge notes was supposed to have a med port placed today. Patient states that surgeon called her and canceled stating he did not feel was appropriate. She is requesting help finding someone else who can place a Mediport. She follows with a GI specialist at [facility]. She has an appointment with them tomorrow. [facility] Medical History Anxiety Chronic constipation Chronic diastolic HF (heart failure) Depression Depression DVT (deep venous thrombosis) Epilepsy Factor V Leiden mutation Former smoker GERD (gastroesophageal reflux disease) History of CVA (cerebrovascular accident) History of pancreatitis History of pulmonary embolus (PE) Hyperlipidemia Hypertension Pancreatitis Pancreatitis Presence of IVC filter Pulmonary embolism Seizure disorder Stroke/cerebrovascular accident Substance abuse Vitamin D deficiency Home Medications furosemide 40 mg tablet 40 mg PO DAILY water pill 09/10/16 [History Last Taken 07/21/23] potassium chloride 10 mEq tablet,extended release(part/cryst) 20 meq PO TID supplment 09/10/16 [History Last Taken 07/21/23] valacyclovir 500 mg tablet (Valtrex) 500 mg PO DAILY herpes 10/25/18 [History Last Taken 07/21/23] melatonin 3 mg capsule 10 mg PO QHS sleep 05/26/19 [History Last Taken 07/21/23] linaclotide 290 mcg capsule (Linzess) 290 mcg PO DAILY bowels 05/28/21 [History Last Taken 07/21/23] ascorbic acid (vitamin C) 1,000 mg tablet (Vitamin C) 1 g PO DAILY supplement 12/03/21 [History Last Taken 07/21/23] clonazepam 0.5 mg tablet (Klonopin) 0.5 mg PO BID PRN Seizures 12/03/21 [History Last Taken 07/21/23] methenamine hippurate 1 gram tablet (Hiprex) 1 g PO QHS bladder infections 12/03/21 [History Last Taken 07/21/23] venlafaxine 150 mg capsule,extended release 24 hr (Effexor XR) 225 mg PO QHS mood 12/03/21 [History Last Taken 07/21/23] rivaroxaban 10 mg tablet (Xarelto) 10 mg PO DAILY blood thinner 07/07/22 [History Last Taken 07/21/23] cholecalciferol (vitamin D3) 1,250 mcg (50,000 unit) capsule 50,000 unit PO FR supplement 02/05/23 [History Last Taken 07/21/23] lacosamide 100 mg tablet (Vimpat) 100 mg PO DAILY seizures 02/05/23 [History Last Taken 07/21/23] lacosamide 200 mg tablet (Vimpat) 200 mg PO QHS seizures 02/05/23 [History Last Taken 07/21/23] lactulose 10 gram/15 mL oral solution 15 ml PO BID PRN PRN Constipation 02/05/23 [History Last Taken Unknown] ropinirole 0.5 mg tablet 0.5 mg PO BID restless legs 02/05/23 [History Last Taken 07/21/23] omeprazole 40 mg capsule,delayed release 40 mg PO BID 02/23/23 [History Last Taken 07/21/23] ondansetron 4 mg disintegrating tablet 4 mg PO Q6H PRN nausea 02/23/23 [History Last Taken Unknown] fenofibrate nanocrystallized 145 mg tablet 145 mg PO QHS 05/07/23 [History Last Taken 07/21/23] aripiprazole 10 mg tablet 10 mg PO DAILY 06/23/23 [History Last Taken 07/21/23] benztropine 0.5 mg tablet 0.5 mg PO BID 06/23/23 [History Last Taken 07/21/23] divalproex 250 mg tablet,delayed release 250 mg PO Q12H 06/23/23 [History Last Taken 07/21/23] clonidine HCl 0.2 mg tablet 0.2 mg PO DAILY 07/22/23 [History Last Taken 07/21/23] metoprolol succinate 25 mg tablet,extended release 24 hr 25 mg PO DAILY 07/22/23 [History Last Taken 07/21/23] mirtazapine 7.5 mg tablet 7.5 mg PO DAILY 07/22/23 [History Last Taken 07/21/23] hydrochlorothiazide 25 mg tablet 25 mg PO DAILY #1 TAB 07/26/23 [Rx Last Taken 07/21/23] hydromorphone 2 mg tablet 2 mg PO Q4H PRN PRN Pain Score 4-10 3 days #12 tabs 07/26/23 [Rx Last Taken Unknown] ondansetron 4 mg disintegrating tablet 4 mg PO Q8H PRN PRN Nausea #10 tabs 08/02/23 [Rx Last Taken Unknown] oxycodone 5 mg tablet 5 mg PO TID PRN pain 1 day #3 tabs 08/02/23 [Rx Last Taken Unknown] Allergy/AdvReac Type Severity Reaction Status Date / Time gabapentin [From Neurontin] Allergy Rash Verified 08/02/23 11:03 Penicillins Allergy Rash Verified 08/02/23 11:03 Sulfa (Sulfonamide Allergy Rash Verified 08/02/23 11:03 Antibiotics) Family History Mother Hypertension Hyperlipidemia Father Heart disease Surgical History H/O: History of appendectomy History of embolic filter insertion History of hysterectomy Hx of cholecystectomy Social History household members: none Smoking Status: Current every day smoker tobacco type: e-cigarettes alcohol intake: former substance use type: marijuana ROS ROS ED Constitutional Constitutional ED: Denies chills or fever(s) Eyes Eyes: Denies change in vision or discharge from eye(s) ENT ENT ED: Denies discharge from eye(s), rhinorrhea or sore throat Cardiovascular Cardiovascular: Denies chest pain or palpitations Respiratory/Chest Respiratory/Chest: Denies cough or dyspnea Gastrointestinal Gastrointestinal: Reports abdominal pain, nausea and vomiting Genitourinary Genitourinary ED: Denies dysuria Musculoskeletal Musculoskeletal: Denies back pain or extremity pain Integumentary Denies Abrasions or rash Neurologic Neurologic: Denies headache(s) or weakness Psychiatric Psychiatric: Denies anxiety or depression Allergic/Immunologic Allergic/Immunologic ED: Denies lip swelling or urticaria EXAM Physical Exam Const Vital Signs: 08/02/23 11:04 Temperature 97.1 F L Temperature Source Temporal Pulse Rate 84 Respiratory Rate 16 Blood Pressure 111/77 Blood Pressure Mean 88 Pulse Ox 98 Oxygen Delivery Method Room Air Positive well nourished and well developed General Appearance ED: well developed HEENT Reports moist mucous membranes Eyes EOMs intact bilaterally Chest Wall inspection of chest normal and palpation of chest normal Resp normal respiratory effort and clear to auscultation bilaterally Cardio regular rate and regular rhythm GI GI Narrative: Mild epigastric tenderness palpation. No guarding or rebound. Palpation: soft Extremity Extremity Narrative: PICC line to the right upper extremity. Site is clean. Skin no rashes or lesions noted MDM MDM MDM Narrative Medical decision making narrative: IV line established and patient given Zofran and a small dose of Dilaudid. She had been discharged with oral Dilaudid. Labwork obtained to evaluate for leukocytosis, anemia, and electrolyte derangement. I did speak with social work to see if there was any assistance in helping her arrange follow-up for Mediport placement. Lab Data Attestation: I reviewed the patient's lab results. Labs: Laboratory Results - last 24 hr 08/02/23 11:30 WBC 7.8 RBC 4.05 L Hgb 11.5 L Hct 37.2 MCV 91.9 MCH 28.4 MCHC 30.9 L RDW Std Deviation 45.6 H RDW Coeff of Megan 13.4 Plt Count 370 MPV 9.0 Immature Gran % (Auto) 0.500 Neut % (Auto) 68.4 Lymph % (Auto) 21.1 [place] % (Auto) 6.4 Eos % (Auto) 2.8 Baso % (Auto) 0.8 Absolute Neuts (auto) 5.3 Absolute Lymphs (auto) 1.65 Nucleated RBC % 0 Sodium 139 Potassium 4.0 Chloride 106 Carbon Dioxide 27.0 Anion Gap 6 BUN 15 Creatinine 0.98 Estim Creat Clear Calc 58.07 Est GFR (MDRD) Af Amer 78 Est GFR (MDRD) Non-Af 65 BUN/Creatinine Ratio 15.4 Glucose 308 H Calcium 8.6 Total Bilirubin 0.20 Direct Bilirubin 0.10 AST 29 ALT 48 Alkaline Phosphatase 89 Total Protein 7.0 Albumin 3.2 Globulin 3.8 Lipase 27 Treatment and Re-Evaluation :: CBC was normal white count 7.8 with a hemoglobin 11.5. This is consistent with her prior values. Chemistry studies remarkable only for glucose of 308. LFTs normal. Lipase today is normal at 27. On recent admission her lipase was over 250. I discussed case with social work. She reached out to case management as they had been working with her previously regarding her med port. They state the patient is to follow-up with either PCP or her GI doctor for this and patient is aware. She has an appointment with her GI doctor tomorrow. I will write her prescription for Zofran and I will write her 3 tabs of oxycodone and advised her further pain medication needed to come from her GI doctor. Discharge Plan Triage Chief Complaint: Abd Pain ED Provider: Lynn Morton Dx/Rx/DC Orders Clinical Impression: Abdominal pain Instructions: ED Abdominal Pain Unkn Cause Fem Prescriptions: New oxycodone 5 mg tablet 5 mg PO TID PRN (Reason: pain) 1 Days Qty: 3 0RF ondansetron 4 mg tablet,disintegrating 4 mg PO Q8H PRN PRN (Reason: Nausea) Qty: 10 0RF No Action ondansetron 4 mg tablet,disintegrating 4 mg PO Q6H PRN (Reason: nausea) omeprazole 40 mg capsule,delayed release(DR/EC) 40 mg PO BID furosemide 40 MG tablet 40 mg PO DAILY potassium chloride 10 MEQ tablet 20 meq PO TID valacyclovir [Valtrex] 500 MG tablet 500 mg PO DAILY melatonin 3 MG capsule 10 mg PO QHS Linzess 290 mcg capsule 290 mcg PO DAILY Patient Comments: take 1 capsule by mouth once daily methenamine hippurate [Hiprex] 1 gram Tablet 1 g PO QHS ascorbic acid (vitamin C) [Vitamin C] 1,000 mg Tablet 1 g PO DAILY clonazepam [Klonopin] 0.5 mg Tablet 0.5 mg PO BID PRN (Reason: Seizures) venlafaxine [Effexor XR] 150 mg Capsule,Extended Release 24hr 225 mg PO QHS Xarelto 10 mg tablet 10 mg PO DAILY ropinirole 0.5 mg Tablet 0.5 mg PO BID lactulose 10 gram/15 mL Solution 15 ml PO BID PRN PRN (Reason: Constipation) cholecalciferol (vitamin D3) 1,250 mcg (50,000 unit) capsule 50,000 unit PO FR Patient Comments: TAKE 1 CAPSULE BY MOUTH EVERY WEEK lacosamide [Vimpat] 100 mg Tablet 100 mg PO DAILY lacosamide [Vimpat] 200 mg Tablet 200 mg PO QHS aripiprazole 10 mg tablet 10 mg PO DAILY benztropine 0.5 mg tablet 0.5 mg PO BID Patient Comments: TAKE 1 TABLET BY MOUTH TWICE DAILY As Needed for eps divalproex 250 mg tablet,delayed release (DR/EC) 250 mg PO Q12H Patient Comments: TAKE 1 TABLET TWICE DAILY for mood clonidine HCl 0.2 mg tablet 0.2 mg PO DAILY metoprolol succinate 25 mg tablet extended release 24 hr 25 mg PO DAILY Patient Comments: TAKE 1 TABLET BY MOUTH DAILY mirtazapine 7.5 mg tablet 7.5 mg PO DAILY Patient Comments: TAKE 1 TABLET BY MOUTH DAILY AT BEDTIME hydromorphone 2 mg Tablet 2 mg PO Q4H PRN PRN (Reason: Pain Score 4-10) 3 Days Qty: 12 0RF hydrochlorothiazide 25 mg tablet 25 mg PO DAILY Qty: 1 0RF Rx Instructions: take this only if necessary fenofibrate nanocrystallized 145 mg tablet 145 mg PO QHS Primary Care Provider: Rin Rivera NP Referrals: Rin Rivera NP, [employer] [Primary Care Provider] - As soon as possible Activity Restrictions/Additional Instructions: Follow-up with your GI doctor tomorrow as scheduled. Disposition Disposition: Home, Self Care
[2023-08-02] MEDS: HYDROmorphone 1 MG/ML Syringe 0.5 MG IV (11:32)
[2023-08-02] MEDS: Ondansetron 4 MG/2 ML Vial IV (11:32)
--- NOTE | 2023-08-02 11:36 | CASEMGMT ---
Received notification from ER SW that pt had presented to the ER and her procedure for a port was cancelled today and pt was interested in some help with finding another physician who would do the port placement. Discussed with Wes, reviewed last hospitalization notes. TC back to ER SW and requested pt follow up with PCP who set pt up for this placement or her pain mgmt physician. Requested that ER change picc dressing as it is due today.
[2023-08-02 11:47] LABS: Absolute Lymphocyte Count 1.65 X10^3/uL (0.83-4.51); Absolute Neutrophil Count 5.3 X10^3/uL (2.0-7.7); Basophil# 0.06 X10^3/uL; Basophil% 0.8 % (0-1); Eosinophil# 0.22 X10^3/uL; Eosinophils% 2.8 % (0-5); Hematocrit 37.2 % (37-47); Hemoglobin 11.5 g/dL (12.0-15.0); Lymphocyte # 1.65 X10^3/ul (0.83-4.51); Lymphocyte % 21.1 % (19-41); Mean Corp Hgb Conc 30.9 g/dL (32-36); Mean Corpuscular Hgb 28.4 pg (27.0-32.0); Mean Corpuscular Volume 91.9 fL (81-99); Monocyte% 6.4 % (0-10); NRBC Flagged by Analyzer 0 % (0-5); Neutrophil # 5.34 X10^3/uL (2.7-7.7); Neutrophil % 68.4 % (47-70); Platelet Count 370 K/mm3 (150-450); RBC Distribution Width CV 13.4 % (11.6-14.6); RBC Distribution Width SD 45.6 fl (35.1-43.9); Red Blood Count 4.05 M/mm3 (4.2-5.4); White Blood Count 7.8 K/mm3 (4.4-11.0)
--- NOTE | 2023-08-02 11:56 | CM.ED ---
Social Work SW consulted by physician regarding patient request for assistance with port placement. Port insertion for today was cancelled by physician and pt wants another physician to do port. SW collaborated with RN LULU regarding patient needs due to working with patient on recent admission. SW informed that PCP had made port arrangements and patient needs to follow up with PCP. Additionally, patient can follow up with pain management or GI specialist that she has an appointment with tomorrow. PICC line dressing is also due for a change today. SW reviewed information with ED physician which was already planning for dressing change. SW introduced self and role to patient. SW provided information about course of action to have port placement - PCP or pain management follow-up as PCP set up initial appointment for port. Pt also advised to discuss with GI at appointment scheduled for tomorrow. SW provided emotional support. Pt denies any further SW needs at this time. Penny Liang MAINFRAME CONSULTANT, IRRIGATOR
[2023-08-02 12:00] LABS: AST(SGOT) 29 U/L (15-37); Alanine Aminotransfer ALT/SGPT 48 U/L (13-56); Albumin, Serum 3.2 g/dL (3.2-5.0); Alkaline Phosphatase 89 U/L (45-117); Anion Gap 6 (5-15); BUN 15 mg/dL (7-18); BUN/Creat Ratio 15.4 RATIO (10-20); Calcium,Total 8.6 mg/dL (8.5-10.1); Chloride 106 mmol/L (98-107); Creatinine, Serum 0.98 mg/dL (0.55-1.02); EST Glomerular Filtration Rate 65 mL/min (>60); Est Glom Filt Rate - Afr Amer 78 mL/min (>60); Estimated Creatinine Clearance 58.07 ml/min; Globulin 3.8 g/dL (2.2-4.2); Glucose 308 mg/dL (74-106); Lipase 27 U/L (13-75); Sodium Level 139 mmol/L (136-145)
[2023-08-02] MEDS: 0.9% Normal Saline (1000mL) 1,000 ML 150 ML IV (12:00)
[2023-08-02 12:57] VITALS: BP 108/55; PULSE 69; RESP 16; O2SAT 95
[2023-08-02 13:02] VITALS: BP 108/55; PULSE 69; RESP 16; O2SAT 95
[2023-08-02] MEDS: oxyCODONE 5 MG Tablet PO (13:09)
== END 2023-08-02 13:13 | disposition home or self-care (01) ==
PROVIDERS: Emergency Provider Emergency Medicine; PCP Nurse Practitioner Family; Visit Provider Emergency Medicine
DX: R10.11 Right upper quadrant pain (principal); I11.0 Hypertensive heart disease with heart failure; I50.32 Chronic diastolic (congestive) heart failure; D68.51 Activated protein C resistance; R11.2 Nausea with vomiting, unspecified; E78.5 Hyperlipidemia, unspecified; F17.290 Nicotine dependence, other tobacco product, uncomplicated; K21.9 Gastro-esophageal reflux disease without esophagitis; Z79.899 Other long term (current) drug therapy; Z79.01 Long term (current) use of anticoagulants
CPT/HCPCS: 36592; 80048; 80076; 83690; 85025; 96361; 96374; 96375; 99282; J7030; A4216; J2405

== ENCOUNTER 2023-08-11 16:56 | Emergency (ER) | payer MEDICARE, SELFPAY ==
[2023-08-11 16:57] VITALS: BP 133/97; PULSE 93; RESP 18; TEMP 36.5; O2SAT 97; BMI 38.8
--- NOTE | 2023-08-11 17:10 | CT_ITS ---
INDICATION: pancreatitis EXAMINATION: CT ABDOMEN AND PELVIS with CONTRAST - CT Abdomen And Pelvis W/ Contrast Injection TECHNIQUE: Multiple axial images were obtained of the abdomen and pelvis following administration of IV contrast. Planar reconstructions obtained. A radiation dose optimization technique was used for this scan. RADIATION DOSAGE (If Supplied By Facility): CTDIvol = ( 19.81 ) mGy, DLP = ( 1219.99 ) mGycm IV Contrast dosage and agent: None. Oral contrast: None. COMPARISON: 02/05/2023 FINDINGS: LOWER THORAX: Lungs are clear. Cardiac contour is normal, no pericardial effusion. No coronary vascular calcifications noted. HEPATOBILIARY: Liver: The liver is homogeneous and shows no evidence of focal lesion. Diffuse fatty infiltration/hepatic steatosis. No focal masses or ductal dilatation. Gallbladder: The gallbladder is unremarkable. Pancreas: 2 large cystic lesions are present within the pancreas including a 6.2 x 5.0 cm mildly septated low-density cyst in the pancreatic head, additional smaller 3.8 x 3.0 cm cystic lesion along posterior aspect of the pancreatic head. Findings are consistent with pancreatic pseudocysts. No phlegmon noted. There has been significant reduction in the peripancreatic soft tissue stranding from prior exam. No evidence of bowel obstruction. No abscess or free air. Spleen: The spleen is homogeneous and normal in size. . BOWEL: Stomach: The stomach is normal in size configuration, no evidence of focal masses, abnormal calcifications. No hiatal hernia noted. Bowel: Small and large have normal configuration, no masses or bowel obstruction noted. Appendix: Not positively identified.: GENITOURINARY: Adrenals: Both adrenal glands are normal in size. Kidneys: Kidneys appear symmetric in size. No calcifications are seen in the collecting system. There is no hydronephrosis or surrounding fluid. Bladder: Normal Pelvic organs: The visualized pelvic organs are normal in size and configuration. No masses or adenopathy noted. RETROPERITONEUM: Aorta has normal configuration. No aneurysmal dilatation. IVC filter is unchanged in position. LYMPH NODES: No evidence of retroperitoneal or para-aortic masses fluid collections or adenopathy. PERITONEAL CAVITY: No ascites noted ANTERIOR ABDOMINAL WALL: Normal, no hernia identified. BONES AND SOFT TISSUES: The skeleton shows no evidence for fractures or destructive lesions. OTHER: None CT/Abdomen/Pelvis W IV Cont ONLY IMPRESSION: 1. Reduction in the previous soft tissue stranding and edema in the pancreas, with interval development of 2 low density cystic collections in the pancreas consistent with pancreatic pseudocyst. Largest measures approximately 6. 215.0 cm. No abscess or free air noted. No bowel obstruction. 2. Fatty infiltration liver consistent with hepatic steatosis, no evidence of ductal dilatation. 3. Status post cholecystectomy. 4. Appendix is not adequately visualized. 5. No evidence of obstructive uropathy. 6. IVC filter without change. Electronically Signed: Edwin Garcia MD at 20:09 EST ,
--- NOTE | 2023-08-11 17:11 | EDS_ITS ---
HPI History of Present Illness Chief Complaint: Abd Pain Informant: patient Onset/Context/Timing Onset: Days Context: Gradual Onset Narrative Narrative: Patient present secondary to recurrent abdominal pain. She has a history of chronic pancreatitis and necrotizing pancreatitis. She follows with a GI doctor at . Patient states she has had increased abdominal pain with nausea and vomi ting since last evening. It was worse after she ate today. She denies fever. She has had diarrhea as well. Patient was seen by myself in the ER on the . She followed up with her GI doctor the following day. She states he is referring her to pain management but she has not yet heard back with an appointment yet. He also reportedly prescribed a new medication for her but the pharmacy has not yet called stating that it is ready. She still has PICC line in place to the right upper extremity and states the dressing has not been changed since she was here last. She states she did go to her PCPs office and asked them to change the dressing but they told her they did not have the right supplies and just put tape around the existing dressing. [facility] Medical History (Updated 08/11/23 @ 20:[address] Lynn Morton MD) Anxiety Chronic constipation Chronic diastolic HF (heart failure) Depression DVT (deep venous thrombosis) Epilepsy Factor V Leiden mutation Former smoker GERD (gastroesophageal reflux disease) History of CVA (cerebrovascular accident) History of pulmonary embolus (PE) Hyperlipidemia Hypertension Pancreatitis Presence of IVC filter Seizure disorder Stroke/cerebrovascular accident Substance abuse Vitamin D deficiency Home Medications furosemide 40 mg tablet 40 mg PO DAILY water pill 09/10/16 [History Last Taken 07/21/23] potassium chloride 10 mEq tablet,extended release(part/cryst) 20 meq PO TID supplment 09/10/16 [History Last Taken 07/21/23] valacyclovir 500 mg tablet (Valtrex) 500 mg PO DAILY herpes 10/25/18 [History Last Taken 07/21/23] melatonin 3 mg capsule 10 mg PO QHS sleep 05/26/19 [History Last Taken 07/21/23] linaclotide 290 mcg capsule (Linzess) 290 mcg PO DAILY bowels 05/28/21 [History Last Taken 07/21/23] ascorbic acid (vitamin C) 1,000 mg tablet (Vitamin C) 1 g PO DAILY supplement 12/03/21 [History Last Taken 07/21/23] clonazepam 0.5 mg tablet (Klonopin) 0.5 mg PO BID PRN Seizures 12/03/21 [History Last Taken 07/21/23] methenamine hippurate 1 gram tablet (Hiprex) 1 g PO QHS bladder infections 12/03/21 [History Last Taken 07/21/23] venlafaxine 150 mg capsule,extended release 24 hr (Effexor XR) 225 mg PO QHS mood 12/03/21 [History Last Taken 07/21/23] rivaroxaban 10 mg tablet (Xarelto) 10 mg PO DAILY blood thinner 07/07/22 [History Last Taken 07/21/23] cholecalciferol (vitamin D3) 1,250 mcg (50,000 unit) capsule 50,000 unit PO FR supplement 02/05/23 [History Last Taken 07/21/23] lacosamide 100 mg tablet (Vimpat) 100 mg PO DAILY seizures 02/05/23 [History Last Taken 07/21/23] lacosamide 200 mg tablet (Vimpat) 200 mg PO QHS seizures 02/05/23 [History Last Taken 07/21/23] lactulose 10 gram/15 mL oral solution 15 ml PO BID PRN PRN Constipation 02/05/23 [History Last Taken Unknown] ropinirole 0.5 mg tablet 0.5 mg PO BID restless legs 02/05/23 [History Last Taken 07/21/23] omeprazole 40 mg capsule,delayed release 40 mg PO BID 02/23/23 [History Last Taken 07/21/23] ondansetron 4 mg disintegrating tablet 4 mg PO Q6H PRN nausea 02/23/23 [History Last Taken Unknown] fenofibrate nanocrystallized 145 mg tablet 145 mg PO QHS 05/07/23 [History Last Taken 07/21/23] aripiprazole 10 mg tablet 10 mg PO DAILY 06/23/23 [History Last Taken 07/21/23] benztropine 0.5 mg tablet 0.5 mg PO BID 06/23/23 [History Last Taken 07/21/23] divalproex 250 mg tablet,delayed release 250 mg PO Q12H 06/23/23 [History Last Taken 07/21/23] clonidine HCl 0.2 mg tablet 0.2 mg PO DAILY 07/22/23 [History Last Taken 07/21] metoprolol succinate 25 mg tablet,extended release 24 hr 25 mg PO DAILY 07/22/23 [History Last Taken 07/21/23] mirtazapine 7.5 mg tablet 7.5 mg PO DAILY 07/22/23 [History Last Taken 07/21/23] hydrochlorothiazide 25 mg tablet 25 mg PO DAILY #1 TAB 07/26/23 [Rx Last Taken 07/21/23] hydromorphone 2 mg tablet 2 mg PO Q4H PRN PRN Pain Score 4-10 3 days #12 tabs 07/26/23 [Rx Last Taken Unknown] ondansetron 4 mg disintegrating tablet 4 mg PO Q8H PRN PRN Nausea #10 tabs 08/02/23 [Rx Last Taken Unknown] oxycodone 5 mg tablet 5 mg PO TID PRN pain 1 day #3 tabs 08/02/23 [Rx Last Taken Unknown] ondansetron 4 mg disintegrating tablet 4 mg PO Q8H PRN PRN Nausea #10 tabs 08/11/23 [Rx Last Taken Unknown] oxycodone 5 mg tablet 5 mg PO Q8H PRN pain 3 days #10 tabs 08/11/23 [Rx Last Taken Unknown] promethazine 25 mg tablet 25 mg PO TID PRN nausea and vomiting #10 tabs 08/11/23 [Rx Last Taken Unknown] Allergy/AdvReac Type Severity Reaction Status Date / Time gabapentin [From Neurontin] Allergy Rash Verified 08/11/23 16:57 Penicillins Allergy Rash Verified 08/11/23 16:57 Sulfa (Sulfonamide Allergy Rash Verified 08/11/23 16:57 Antibiotics) Family History Mother Hypertension Hyperlipidemia Father Heart disease Surgical History H/O: History of appendectomy History of embolic filter insertion History of hysterectomy Hx of cholecystectomy Social History household members: none Smoking Status: Current every day smoker tobacco type: e-cigarettes alcohol intake: former substance use type: marijuana ROS ROS ED Constitutional Constitutional ED: Denies chills or fever(s) Eyes Eyes: Denies discharge from eye(s) ENT ENT ED: Denies discharge from eye(s), rhinorrhea or sore throat Cardiovascular Cardiovascular: Denies chest pain or palpitations Respiratory/Chest Respiratory/Chest: Denies cough or dyspnea Gastrointestinal Gastrointestinal: Reports abdominal pain, diarrhea, nausea and vomiting Genitourinary Genitourinary ED: Denies dysuria Musculoskeletal Musculoskeletal: Denies back pain or extremity pain Integumentary Denies Abrasions or rash Neurologic Neurologic: Denies headache(s) or weakness Psychiatric Psychiatric: Denies anxiety or depression Allergic/Immunologic Allergic/Immunologic ED: Denies lip swelling or urticaria EXAM Physical Exam Const Vital Signs: 08/11/23 16:57 08/11/23 19:26 Temperature 97.7 F L Temperature Source Temporal Pulse Rate 93 77 Respiratory Rate 18 15 Blood Pressure 133/97 H 113/87 H Blood Pressure Mean 109 95 Pulse Ox 97 96 Oxygen Delivery Method Room Air Room Air Positive well nourished and well developed General Appearance ED: well developed HEENT Reports dry mucous membranes Mouth ED: Yes dry mucous membranes Mouth: dry mucous membranes Eyes EOMs intact bilaterally Chest Wall inspection of chest normal and palpation of chest normal Resp normal respiratory effort and clear to auscultation bilaterally Cardio regular rate and regular rhythm GI GI Narrative: Abdomen soft with diffuse tenderness over the upper abdomen. No guarding or rebound. Active bowel sounds are noted. Extremity Extremity Narrative: PICC line in place to the right upper extremity. No surrounding erythema. Neuro oriented x3 and no sensory deficits noted Motor Exam: strength 5/5 throughout Psych mental status grossly normal Skin no rashes or lesions noted MDM MDM MDM Narrative Medical decision making narrative: IV line established. Labwork obtained to evaluate for leukocytosis, anemia, and electrolyte derangement. Patient given Dilaudid, Zofran, and IV fluids. CT scan of the abdomen pelvis with IV contrast obtained to evaluate for acute pancreatic inflammation or evidence of necrotizing pancreatitis. History & Record Review Discussion w/independent historian: Patient Additional record(s) reviewed:: Prior inpatient record, Prior outpatient record, Prior ED visit and Prior labs Lab Data Attestation: I reviewed the patient's lab results. Labs: Laboratory Results - last 24 hr 08/11/23 18:26 WBC 11.2 H RBC 4.61 Hgb 13.1 Hct 42.0 MCV 91.1 MCH 28.4 MCHC 31.2 L RDW Std Deviation 46.9 H RDW Coeff of Megan 13.9 Plt Count 370 MPV 8.2 Immature Gran % (Auto) 0.800 Neut % (Auto) 75.1 H Lymph % (Auto) 16.5 L Antelope % (Auto) 5.0 Eos % (Auto) 1.8 Baso % (Auto) 0.8 Absolute Neuts (auto) 8.4 H Absolute Lymphs (auto) 1.85 Nucleated RBC % 0 Sodium 134 L Potassium 3.8 Chloride 100 Carbon Dioxide 26.0 Anion Gap 8 BUN 23 H Creatinine 1.05 H Estim Creat Clear Calc 54.20 Est GFR (MDRD) Af Amer 72 Est GFR (MDRD) Non-Af 59 L BUN/Creatinine Ratio 21.9 H Glucose 277 H Calcium 9.1 Total Bilirubin 0.20 Direct Bilirubin 0.10 AST 24 ALT 51 Alkaline Phosphatase 92 Total Protein 7.7 Albumin 3.5 Globulin 4.2 Lipase 42 Radiography Diagnostic Testing: Clinical Impression(s) from Imaging Studies Abdomen/Pelvis CT 08/11/23 17:10 IMPRESSION: 1. Reduction in the previous soft tissue stranding and edema in the pancreas, with interval development of 2 low density cystic collections in the pancreas consistent with pancreatic pseudocyst. Largest measures approximately 6. 215.0 cm. No abscess or free air noted. No bowel obstruction. 2. Fatty infiltration liver consistent with hepatic steatosis, no evidence of ductal dilatation. 3. Status post cholecystectomy. 4. Appendix is not adequately visualized. 5. No evidence of obstructive uropathy. 6. IVC filter without change. Electronically Signed: Edwin Garcia MD at 20:09 EST , Treatment and Re-Evaluation :: CBC was a white count 11.2 with 75% neutrophils. Hemoglobin normal at 13.1. Chemistry studies reveal a BUN of 23 and a creatinine 1.05. Sodium is 134. Glucose is elevated at 277. LFTs are unremarkable. Lipase is normal at 42. CT scan of the abdomen and pelvis with IV contrast reveals reduction in the previous soft tissue stranding and edema in the pancreas. Pseudocysts are noted. No abscess or free air noted. No evidence of bowel obstruction. Test results discussed with the patient. At this time I will write her antiemetics as well as a short course of oxycodone for pain. She will call her GI doctor on Tuesday to see about the referral to pain management that supposedly is in progress. Return instructions given. Discharge Plan Triage Chief Complaint: Abd Pain ED Provider: Lynn Morton Dx/Rx/DC Orders Clinical Impression: Abdominal pain, epigastric, Pancreatic pseudocyst Instructions: ED Epigastric Pain Uncertain Cause Prescriptions: New ondansetron 4 mg tablet,disintegrating 4 mg PO Q8H PRN PRN (Reason: Nausea) Qty: 10 0RF promethazine 25 mg tablet 25 mg PO TID PRN (Reason: nausea and vomiting) Qty: 10 0RF oxycodone 5 mg tablet 5 mg PO Q8H PRN (Reason: pain) 3 Days Qty: 10 0RF No Action ondansetron 4 mg tablet,disintegrating 4 mg PO Q6H PRN (Reason: nausea) omeprazole 40 mg capsule,delayed release(DR/EC) 40 mg PO BID furosemide 40 MG tablet 40 mg PO DAILY potassium chloride 10 MEQ tablet 20 meq PO TID valacyclovir [Valtrex] 500 MG tablet 500 mg PO DAILY melatonin 3 MG capsule 10 mg PO QHS Linzess 290 mcg capsule 290 mcg PO DAILY Patient Comments: take 1 capsule by mouth once daily methenamine hippurate [Hiprex] 1 gram Tablet 1 g PO QHS ascorbic acid (vitamin C) [Vitamin C] 1,000 mg Tablet 1 g PO DAILY clonazepam [Klonopin] 0.5 mg Tablet 0.5 mg PO BID PRN (Reason: Seizures) venlafaxine [Effexor XR] 150 mg Capsule,Extended Release 24hr 225 mg PO QHS Xarelto 10 mg tablet 10 mg PO DAILY ropinirole 0.5 mg Tablet 0.5 mg PO BID lactulose 10 gram/15 mL Solution 15 ml PO BID PRN PRN (Reason: Constipation) cholecalciferol (vitamin D3) 1,250 mcg (50,000 unit) capsule 50,000 unit PO FR Patient Comments: TAKE 1 CAPSULE BY MOUTH EVERY WEEK lacosamide [Vimpat] 100 mg Tablet 100 mg PO DAILY lacosamide [Vimpat] 200 mg Tablet 200 mg PO QHS aripiprazole 10 mg tablet 10 mg PO DAILY benztropine 0.5 mg tablet 0.5 mg PO BID Patient Comments: TAKE 1 TABLET BY MOUTH TWICE DAILY As Needed for eps divalproex 250 mg tablet,delayed release (DR/EC) 250 mg PO Q12H Patient Comments: TAKE 1 TABLET TWICE DAILY for mood clonidine HCl 0.2 mg tablet 0.2 mg PO DAILY metoprolol succinate 25 mg tablet extended release 24 hr 25 mg PO DAILY Patient Comments: TAKE 1 TABLET BY MOUTH DAILY mirtazapine 7.5 mg tablet 7.5 mg PO DAILY Patient Comments: TAKE 1 TABLET BY MOUTH DAILY AT BEDTIME hydromorphone 2 mg Tablet 2 mg PO Q4H PRN PRN (Reason: Pain Score 4-10) 3 Days Qty: 12 0RF hydrochlorothiazide 25 mg tablet 25 mg PO DAILY Qty: 1 0RF Rx Instructions: take this only if necessary fenofibrate nanocrystallized 145 mg tablet 145 mg PO QHS oxycodone 5 mg tablet 5 mg PO TID PRN (Reason: pain) 1 Days Qty: 3 0RF ondansetron 4 mg tablet,disintegrating 4 mg PO Q8H PRN PRN (Reason: Nausea) Qty: 10 0RF Primary Care Provider: Rin Rivera NP Referrals: Rin Rivera NP, COUNSEL-C [Primary Care Provider] - As soon as possible Activity Restrictions/Additional Instructions: As discussed, please follow-up with your GI doctor on Tuesday to get more information about the referral to pain management had previously been discussed. Disposition Disposition: Home, Self Care
[2023-08-11] MEDS: 0.9% Normal Saline (1000mL) 1,000 ML 1000 ML IV (17:43)
[2023-08-11] MEDS: HYDROmorphone 1 MG/ML Syringe 0.5 MG IV (17:43)
[2023-08-11] MEDS: Ondansetron 4 MG/2 ML Vial IV (17:43)
[2023-08-11 18:34] LABS: Absolute Lymphocyte Count 1.85 X10^3/uL (0.83-4.51); Absolute Neutrophil Count 8.4 X10^3/uL (2.0-7.7); Basophil# 0.09 X10^3/uL; Basophil% 0.8 % (0-1); Eosinophils% 1.8 % (0-5); Hemoglobin 13.1 g/dL (12.0-15.0); Lymphocyte # 1.85 X10^3/ul (0.83-4.51); Lymphocyte % 16.5 % (19-41); Mean Corp Hgb Conc 31.2 g/dL (32-36); Mean Corpuscular Hgb 28.4 pg (27.0-32.0); Mean Corpuscular Volume 91.1 fL (81-99); Mean Platelet Vol. 8.2 fl (6.2-12.0); Monocyte# 0.56 X10^3/uL; NRBC Flagged by Analyzer 0 % (0-5); Neutrophil # 8.41 X10^3/uL (2.7-7.7); Neutrophil % 75.1 % (47-70); Platelet Count 370 K/mm3 (150-450); RBC Distribution Width CV 13.9 % (11.6-14.6); RBC Distribution Width SD 46.9 fl (35.1-43.9); Red Blood Count 4.61 M/mm3 (4.2-5.4); White Blood Count 11.2 K/mm3 (4.4-11.0)
[2023-08-11 18:56] LABS: AST(SGOT) 24 U/L (15-37); Alanine Aminotransfer ALT/SGPT 51 U/L (13-56); Albumin, Serum 3.5 g/dL (3.2-5.0); Alkaline Phosphatase 92 U/L (45-117); Anion Gap 8 (5-15); BUN 23 mg/dL (7-18); BUN/Creat Ratio 21.9 RATIO (10-20); Calcium,Total 9.1 mg/dL (8.5-10.1); Chloride 100 mmol/L (98-107); Creatinine, Serum 1.05 mg/dL (0.55-1.02); EST Glomerular Filtration Rate 59 mL/min (>60); Est Glom Filt Rate - Afr Amer 72 mL/min (>60); Globulin 4.2 g/dL (2.2-4.2); Glucose 277 mg/dL (74-106); Lipase 42 U/L (13-75); Potassium 3.8 mmol/L (3.5-5.1); Protein, Total 7.7 g/dL (6.4-8.2); Sodium Level 134 mmol/L (136-145)
[2023-08-11 19:26] VITALS: BP 113/87; PULSE 77; RESP 15; O2SAT 96
[2023-08-11] MEDS: HYDROmorphone 0.5 MG/0.5 ML SYRINGE IV (19:27)
[2023-08-11 21:26] VITALS: BP 113/87; PULSE 72; RESP 15; O2SAT 97
== END 2023-08-11 21:27 | disposition home or self-care (01) ==
PROVIDERS: Emergency Provider Emergency Medicine; PCP Nurse Practitioner Family; Visit Provider Emergency Medicine
DX: R10.13 Epigastric pain (principal); I11.0 Hypertensive heart disease with heart failure; I50.32 Chronic diastolic (congestive) heart failure; G40.909 Epilepsy, unspecified, not intractable, without status epilepticus; K86.3 Pseudocyst of pancreas; E78.5 Hyperlipidemia, unspecified; Z86.73 Personal history of transient ischemic attack (TIA), and cerebral infarction without residual deficits; Z79.899 Other long term (current) drug therapy; F41.9 Anxiety disorder, unspecified; F32.A Depression, unspecified; Z86.718 Personal history of other venous thrombosis and embolism; Z79.01 Long term (current) use of anticoagulants; K21.9 Gastro-esophageal reflux disease without esophagitis; Z90.49 Acquired absence of other specified parts of digestive tract; Z90.710 Acquired absence of both cervix and uterus; F17.290 Nicotine dependence, other tobacco product, uncomplicated
CPT/HCPCS: 74177; 80048; 80076; 83690; 85025; 96361; 96374; 96375; 96376; 99282; J7030; Q9967; A4216; J2405

== ENCOUNTER 2023-08-14 18:16 | Emergency (ER) | payer MEDICARE, SELFPAY ==
[2023-08-14 18:17] VITALS: BP 129/101; PULSE 119; RESP 22; TEMP 36.1; O2SAT 96
--- NOTE | 2023-08-14 18:34 | EDS_ITS ---
<Statement entered by Ludin Momin MD - 08/14/23 21:21> Pt seen & evaluated w/JAYSHREE. I personally interviewed & exam the pt. I was involved in all aspects of pt's orders, interpretation of results & treatment. Dr. Momin: I have personally performed a face to face assessment of the patient and have reviewed the JAYSHREE Note. I performed a substantive portion of the visit including all aspects of the following. My denise findings include: History is epigastric pain with history of chronic pancreatitis. CT scan 4 days ago showed improvement of inflammation and pseudocysts. Exam is afebrile. Vital signs noted. Mild tenderness in epigastrium. No rebound or guarding. Medical Decision Making: Recheck labs. Analgesia. Elevated blood sugars. IV fluids. False positive test. As a patient is enrolled in pain management, she has to call tomorrow. I do not feel that home narcotics are indicated as she is enrolled in pain management. I do not feel she requires observation or admission at this time. Return instructions to the emergency department were reviewed. Disposition is discharged in stable condition. Blood sugars are downtrending. Other additions or changes: [None] HPI HPI - GI History of Present Illness Chief Complaint: Abd Pain Narrative Narrative: 47-year-old female presents with recurrent epigastric pain. 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 She fo llows with a GI doctor at . She has had multiple ED visits for this in the past month and states she takes pain pills as they are prescribed but otherwise takes Tylenol. She has Zofran and Phenergan at home to control her nausea and vomiting. She was able to eat today but about 6 PM the pain became severe and doubled her over. She has no fever or chills. She reports normal bladder and bowel movements. She was a binge drinker between 2006 and 2011 but states she does not drink alcohol since. She has difficult IV access so has a right upper extremity PICC line. She sees pain management and had an infusion of lidocaine and ketamine on August 02 and is scheduled for another on August 23. She has had a cholecystectomy, appendectomy, hysterectomy. [facility] Medical History (Updated 08/14/23 @ 20:22 by BENIGNO Donis) Anxiety Chronic constipation Chronic diastolic HF (heart failure) Depression DVT (deep venous thrombosis) Epilepsy Factor V Leiden mutation Former smoker GERD (gastroesophageal reflux disease) History of CVA (cerebrovascular accident) History of pulmonary embolus (PE) Hyperlipidemia Hypertension Pancreatitis Presence of IVC filter Seizure disorder Stroke/cerebrovascular accident Substance abuse Vitamin D deficiency Home Medications furosemide 40 mg tablet 40 mg PO DAILY water pill 09/10/16 [History Last Taken 07/21/23] potassium chloride 10 mEq tablet,extended release(part/cryst) 20 meq PO TID supplment 09/10/16 [History Last Taken 07/21/23] valacyclovir 500 mg tablet (Valtrex) 500 mg PO DAILY herpes 10/25/18 [History Last Taken 07/21/23] melatonin 3 mg capsule 10 mg PO QHS sleep 05/26/19 [History Last Taken 07/21/23] linaclotide 290 mcg capsule (Linzess) 290 mcg PO DAILY bowels 05/28/21 [History Last Taken 07/21/23] ascorbic acid (vitamin C) 1,000 mg tablet (Vitamin C) 1 g PO DAILY supplement 12/03/21 [History Last Taken 07/21/23] clonazepam 0.5 mg tablet (Klonopin) 0.5 mg PO BID PRN Seizures 12/03/21 [History Last Taken 07/21/23] methenamine hippurate 1 gram tablet (Hiprex) 1 g PO QHS bladder infections 12/03/21 [History Last Taken 07/21/23] venlafaxine 150 mg capsule,extended release 24 hr (Effexor XR) 225 mg PO QHS mood 12/03/21 [History Last Taken 07/21/23] rivaroxaban 10 mg tablet (Xarelto) 10 mg PO DAILY blood thinner 07/07/22 [History Last Taken 07/21/23] cholecalciferol (vitamin D3) 1,250 mcg (50,000 unit) capsule 50,000 unit PO FR supplement 02/05/23 [History Last Taken 07/21/23] lacosamide 100 mg tablet (Vimpat) 100 mg PO DAILY seizures 02/05/23 [History Last Taken 07/21/23] lacosamide 200 mg tablet (Vimpat) 200 mg PO QHS seizures 02/05/23 [History Last Taken 07/21/23] lactulose 10 gram/15 mL oral solution 15 ml PO BID PRN PRN Constipation 02/05/23 [History Last Taken Unknown] ropinirole 0.5 mg tablet 0.5 mg PO BID restless legs 02/05/23 [History Last Taken 07/21/23] omeprazole 40 mg capsule,delayed release 40 mg PO BID 02/23/23 [History Last Taken 07/21/23] ondansetron 4 mg disintegrating tablet 4 mg PO Q6H PRN nausea 02/23/23 [History Last Taken Unknown] fenofibrate nanocrystallized 145 mg tablet 145 mg PO QHS 05/07/23 [History Last Taken 07/21/23] aripiprazole 10 mg tablet 10 mg PO DAILY 06/23/23 [History Last Taken 07/21/23] benztropine 0.5 mg tablet 0.5 mg PO BID 06/23/23 [History Last Taken 07/21/23] divalproex 250 mg tablet,delayed release 250 mg PO Q12H 06/23/23 [History Last Taken 07/21/23] clonidine HCl 0.2 mg tablet 0.2 mg PO DAILY 07/22/23 [History Last Taken 07/21/23] metoprolol succinate 25 mg tablet,extended release 24 hr 25 mg PO DAILY 07/22/23 [History Last Taken 07/21/23] mirtazapine 7.5 mg tablet 7.5 mg PO DAILY 07/22/23 [History Last Taken 07/21/23] ondansetron 4 mg disintegrating tablet 4 mg PO Q8H PRN PRN Nausea #10 tabs 08/02/23 [Rx Last Taken Unknown] oxycodone 5 mg tablet 5 mg PO TID PRN pain 1 day #3 tabs 08/02/23 [Rx Last Taken Unknown] ondansetron 4 mg disintegrating tablet 4 mg PO Q8H PRN PRN Nausea #10 tabs 08/11/23 [Rx Last Taken Unknown] oxycodone 5 mg tablet 5 mg PO Q8H PRN pain 3 days #10 tabs 08/11/23 [Rx Last Taken Unknown] promethazine 25 mg tablet 25 mg PO TID PRN nausea and vomiting #10 tabs 08/11/23 [Rx Last Taken Unknown] hydrochlorothiazide 25 mg tablet 25 mg PO DAILY PRN edema 08/14/23 [History Last Taken Unknown] Allergy/AdvReac Type Severity Reaction Status Date / Time gabapentin [From Neurontin] Allergy Rash Verified 08/14/23 18:17 Penicillins Allergy Rash Verified 08/14/23 18:17 Sulfa (Sulfonamide Allergy Rash Verified 08/14/23 18:17 Antibiotics) Family History Mother Hypertension Hyperlipidemia Father Heart disease Surgical History H/O: History of appendectomy History of embolic filter insertion History of hysterectomy Hx of cholecystectomy Social History household members: none Smoking Status: Current every day smoker tobacco type: e-cigarettes alcohol intake: former substance use type: marijuana ROS ROS ED ROS Narrative Constitutional: Negative for fever, chills, malaise. CVS: Negative for chest pain, syncope. Respiratory: Negative for shortness of breath. GI: Positive for abdominal pain, nausea. Negative for vomiting, diarrhea, constipation, melena, hematochezia. : Negative for dysuria, hematuria or frequency. EXAM Physical Exam Narrative Exam Narrative: CONST: Patient sitting in no acute distress. EYES: Normal inspection. NECK: Normal inspection. RESP: No respiratory distress, CTAB. CVS: Tachycardic around 110 bpm with right rhythm, no murmur, no gallop. ABD: Soft with epigastric tenderness, no guarding or rebound, nondistended, no hepatosplenomegaly. SKIN: Color normal, no rash, warm, dry, intact. EXTREMITIES: Normal appearance, no pedal edema. NEURO: Oriented x4. PSYCH: Normal affect. Const Vital Signs: 08/14/23 18:17 Temperature 97 F L Temperature Source Temporal Pulse Rate 119 H Respiratory Rate 22 H Blood Pressure 129/101 H Blood Pressure Mean 110 Pulse Ox 96 Oxygen Delivery Method Room Air MDM MDM MDM Narrative Medical decision making narrative: History gathered from: Patient and parent 47-year-old female presents with recurrent epigastric pain. Has history of chronic pancreatitis. This is her fourth ED visit for this issue this month. She appears well and nontoxic. HR is 119 with otherwise normal vital signs. She has a normal cardiopulmonary exam. Abdomen is soft with midline epigastric tenderness and no peritoneal signs. I reviewed her CT scan on 08/11/2023 which shows 2 pancreatic pseudocyst and reduction in previous pancreas soft tissue stranding and edema. I ordered repeat blood work and treated with IV fluids, morphine and Zofran. WBC is 7.9. Hemoglobin 13. Glucose is 521 with normal CO2 and anion gap. Sodium is 132 (corrected 139). Liver enzymes slightly elevated similar to previous at AST 40, ALT 68. Lipase 114. It looks like she has been hyperglycemic earlier this month in the 200?300 level. When I discussed this with the patient she states her primary care checked an A1c this week and it was 8.1 and she was told they would recheck in 3 months. After 1 L of fluids and BGT was rechecked and went from 521 to 350 so I will give second liter of fluids and then discharge. She should call her primary care this week to discuss initiating diabetic medication. I had protocol ordered a serum test which returned positive; however, patient has had a complete hysterectomy which was confirmed on prior CT scans so this must be a false positive. Patient comfortable with plan will follow-up with GI, pain management, and PCP. Discharged in stable condition. Lab Data Attestation: I reviewed the patient's lab results. Labs: Laboratory Results - last 24 hr 08/14/23 19:02 WBC 7.9 RBC 4.62 Hgb 13.0 Hct 41.3 MCV 89.4 MCH 28.1 MCHC 31.5 L RDW Std Deviation 44.0 H RDW Coeff of Megan 13.5 Plt Count 332 MPV 8.5 Immature Gran % (Auto) 0.600 Neut % (Auto) 69.7 Lymph % (Auto) 22.0 Fountain % (Auto) 4.8 Eos % (Auto) 2.3 Baso % (Auto) 0.6 Absolute Neuts (auto) 5.5 Absolute Lymphs (auto) 1.75 Nucleated RBC % 0 Sodium 132 L Potassium 4.2 Chloride 99 Carbon Dioxide 24.0 Anion Gap 9 BUN 18 Creatinine 1.11 H Est GFR (MDRD) Af Amer 67 Est GFR (MDRD) Non-Af 56 L BUN/Creatinine Ratio 16.2 Glucose 521 H* Calcium 9.0 Total Bilirubin 0.20 AST 40 H ALT 68 H Alkaline Phosphatase 116 Total Protein 8.0 Albumin 3.7 Globulin 4.3 H Albumin/Globulin Ratio 0.9 Lipase 114 H Serum , Qual POSITIVE Discharge Plan Triage Chief Complaint: Abd Pain ED Midlevel Provider: Carrie Gaines ED Provider: Ludin Momin Dx/Rx/DC Orders Clinical Impression: Transaminitis, New onset type 2 diabetes mellitus, Chronic pancreatitis Instructions: Pancreatitis Chronic Dc, Diabetes Carbs Fats Protein Prescriptions: No Action ondansetron 4 mg tablet,disintegrating 4 mg PO Q6H PRN (Reason: nausea) omeprazole 40 mg capsule,delayed release(DR/EC) 40 mg PO BID furosemide 40 MG tablet 40 mg PO DAILY potassium chloride 10 MEQ tablet 20 meq PO TID valacyclovir [Valtrex] 500 MG tablet 500 mg PO DAILY melatonin 3 MG capsule 10 mg PO QHS Linzess 290 mcg capsule 290 mcg PO DAILY Patient Comments: take 1 capsule by mouth once daily methenamine hippurate [Hiprex] 1 gram Tablet 1 g PO QHS ascorbic acid (vitamin C) [Vitamin C] 1,000 mg Tablet 1 g PO DAILY clonazepam [Klonopin] 0.5 mg Tablet 0.5 mg PO BID PRN (Reason: Seizures) venlafaxine [Effexor XR] 150 mg Capsule,Extended Release 24hr 225 mg PO QHS Xarelto 10 mg tablet 10 mg PO DAILY ropinirole 0.5 mg Tablet 0.5 mg PO BID lactulose 10 gram/15 mL Solution 15 ml PO BID PRN PRN (Reason: Constipation) cholecalciferol (vitamin D3) 1,250 mcg (50,000 unit) capsule 50,000 unit PO FR Patient Comments: TAKE 1 CAPSULE BY MOUTH EVERY WEEK lacosamide [Vimpat] 100 mg Tablet 100 mg PO DAILY lacosamide [Vimpat] 200 mg Tablet 200 mg PO QHS aripiprazole 10 mg tablet 10 mg PO DAILY benztropine 0.5 mg tablet 0.5 mg PO BID Patient Comments: TAKE 1 TABLET BY MOUTH TWICE DAILY As Needed for eps divalproex 250 mg tablet,delayed release (DR/EC) 250 mg PO Q12H Patient Comments: TAKE 1 TABLET TWICE DAILY for mood clonidine HCl 0.2 mg tablet 0.2 mg PO DAILY metoprolol succinate 25 mg tablet extended release 24 hr 25 mg PO DAILY Patient Comments: TAKE 1 TABLET BY MOUTH DAILY mirtazapine 7.5 mg tablet 7.5 mg PO DAILY Patient Comments: TAKE 1 TABLET BY MOUTH DAILY AT BEDTIME fenofibrate nanocrystallized 145 mg tablet 145 mg PO QHS oxycodone 5 mg tablet 5 mg PO TID PRN (Reason: pain) 1 Days Qty: 3 0RF ondansetron 4 mg tablet,disintegrating 4 mg PO Q8H PRN PRN (Reason: Nausea) Qty: 10 0RF ondansetron 4 mg tablet,disintegrating 4 mg PO Q8H PRN PRN (Reason: Nausea) Qty: 10 0RF promethazine 25 mg tablet 25 mg PO TID PRN (Reason: nausea and vomiting) Qty: 10 0RF oxycodone 5 mg tablet 5 mg PO Q8H PRN (Reason: pain) 3 Days Qty: 10 0RF hydrochlorothiazide 25 mg tablet 25 mg PO DAILY PRN (Reason: edema) Rx Instructions: take this only if necessary Primary Care Provider: Rin Rivera NP Referrals: Rin Rivera NP, [facility] [Primary Care Provider] - Disposition Disposition: Home, Self Care
[2023-08-14] MEDS: 0.9% Normal Saline (1000mL) 1,000 ML 999 ML IV ×2 (18:47→20:35)
[2023-08-14] MEDS: Morphine 4 MG/ML Syringe IV ×2 (18:47→20:04)
[2023-08-14] MEDS: Ondansetron 4 MG/2 ML Vial IV (18:47)
[2023-08-14 19:21] LABS: Absolute Lymphocyte Count 1.75 X10^3/uL (0.83-4.51); Absolute Neutrophil Count 5.5 X10^3/uL (2.0-7.7); Basophil# 0.05 X10^3/uL; Basophil% 0.6 % (0-1); Eosinophil# 0.18 X10^3/uL; Eosinophils% 2.3 % (0-5); Hematocrit 41.3 % (37-47); Lymphocyte # 1.75 X10^3/ul (0.83-4.51); Mean Corp Hgb Conc 31.5 g/dL (32-36); Mean Corpuscular Hgb 28.1 pg (27.0-32.0); Mean Corpuscular Volume 89.4 fL (81-99); Mean Platelet Vol. 8.5 fl (6.2-12.0); Monocyte# 0.38 X10^3/uL; Monocyte% 4.8 % (0-10); NRBC Flagged by Analyzer 0 % (0-5); Neutrophil # 5.53 X10^3/uL (2.7-7.7); Neutrophil % 69.7 % (47-70); Platelet Count 332 K/mm3 (150-450); RBC Distribution Width CV 13.5 % (11.6-14.6); Red Blood Count 4.62 M/mm3 (4.2-5.4); White Blood Count 7.9 K/mm3 (4.4-11.0)
[2023-08-14 19:55] LABS: Internal QC Validated? YES +Cl - CLEAR BKGD
[2023-08-14 19:58] LABS: Pregnancy, Serum, hCG Quali. POSITIVE Negative
[2023-08-14 20:10] LABS: ALB/GLOB Ratio 0.9 RATIO (0.9-2.4); AST(SGOT) 40 U/L (15-37); Alanine Aminotransfer ALT/SGPT 68 U/L (13-56); Albumin, Serum 3.7 g/dL (3.2-5.0); Alkaline Phosphatase 116 U/L (45-117); Anion Gap 9 (5-15); BUN 18 mg/dL (7-18); BUN/Creat Ratio 16.2 RATIO (10-20); Chloride 99 mmol/L (98-107); Creatinine, Serum 1.11 mg/dL (0.55-1.02); EST Glomerular Filtration Rate 56 mL/min (>60); Est Glom Filt Rate - Afr Amer 67 mL/min (>60); Globulin 4.3 g/dL (2.2-4.2); Glucose 521 mg/dL (74-106); Lipase 114 U/L (13-75); Potassium 4.2 mmol/L (3.5-5.1); Sodium Level 132 mmol/L (136-145)
[2023-08-14 20:44] LABS: Bedside Glucose 350 mg/dL (74-106)
--- NOTE | 2023-08-16 14:58 | CASEMGMT ---
Addendum entered by Maricarmen Reed 08/16/23 16:08: Received tc back from Laura at [facility]'s office who states they have reached out to pain mgmt regarding picc line. She also states that [facility] has been ordered for pt for management of picc. Gave Laura [facility] number and she will reach out to provide any orders. TC to [facility], left a message that the doctor's office will call them for any orders. Original Note: Received tc from Peri at [facility] who states pt is calling in to get picc dressing kits delivered. She states the rx has run out for pt flushes at this time and they cannot supply her with dressing kits as she does not have HHC. Explained the situation to Peri that pt was supposed to have port placed and this was cancelled. Spoke with natural resource manager to discuss pt. TC to Bekah [facility]'s office, left message on nurse line to see if they want the line pulled or will manage picc dressing changes. TC to Peri to make aware of this. Will await returned call.
== END 2023-08-14 22:09 | disposition home or self-care (01) ==
PROVIDERS: Physician Assistant; Emergency Provider Emergency Medicine; PCP Nurse Practitioner Family; Visit Provider Emergency Medicine
DX: R10.13 Epigastric pain (principal); I11.0 Hypertensive heart disease with heart failure; I50.32 Chronic diastolic (congestive) heart failure; K86.1 Other chronic pancreatitis; G40.909 Epilepsy, unspecified, not intractable, without status epilepticus; E11.9 Type 2 diabetes mellitus without complications; E78.5 Hyperlipidemia, unspecified; R74.01 Elevation of levels of liver transaminase levels; Z90.49 Acquired absence of other specified parts of digestive tract; Z90.710 Acquired absence of both cervix and uterus; Z86.73 Personal history of transient ischemic attack (TIA), and cerebral infarction without residual deficits; Z79.899 Other long term (current) drug therapy; F41.9 Anxiety disorder, unspecified; F32.A Depression, unspecified; Z86.718 Personal history of other venous thrombosis and embolism; Z79.01 Long term (current) use of anticoagulants; K21.9 Gastro-esophageal reflux disease without esophagitis; F17.290 Nicotine dependence, other tobacco product, uncomplicated
CPT/HCPCS: 80053; 82962; 83690; 84703; 85025; 96361; 96374; 96375; 96376; 99283; J7030; A4216; J2405

== ENCOUNTER 2023-08-17 15:18 | Observation (INO) | payer MEDICARE, SELFPAY ==
[2023-08-17 15:19] VITALS: BP 166/118; PULSE 127; RESP 22; TEMP 35.9; O2SAT 98
--- NOTE | 2023-08-17 15:38 | ED.VIS.GI ---
HPI HPI - GI History of Present Illness Chief Complaint: Abd Pain Detail of Chief Complaint: Abdominal pain Informant: patient Narrative Narrative: Patient presents to the emergency department complaint of abdominal pain that started today. She has history of chronic pancreatitis with pancreatic pseudocyst. She is currently in pain management and following up with GI. Patient states that she was in the emergency department 4 days ago for abdominal pain and at that time her blood sugar was 520. She called her primary care physician's office because her blood sugar was over 400 today. She was advised to come to the ER to get evaluated. She is not known to be diabetic and no diabetic medications. She had nausea but no vomiting. Denies fever. She has had prior appendectomy as well as cholecystectomy and prior hysterectomy. [facility] Medical History (Updated 08/17/23 @ 17:[address] Zane Orlando DO) Anxiety Chronic constipation Chronic diastolic HF (heart failure) Depression DVT (deep venous thrombosis) Epilepsy Factor V Leiden mutation Former smoker GERD (gastroesophageal reflux disease) History of CVA (cerebrovascular accident) History of pulmonary embolus (PE) Hyperlipidemia Hypertension Pancreatitis Presence of IVC filter Seizure disorder Stroke/cerebrovascular accident Substance abuse Vitamin D deficiency Home Medications furosemide 40 mg tablet 40 mg PO DAILY water pill 09/10/16 [History Last Taken 07/21/23] potassium chloride 10 mEq tablet,extended release(part/cryst) 20 meq PO TID supplment 09/10/16 [History Last Taken 07/21/23] valacyclovir 500 mg tablet (Valtrex) 500 mg PO DAILY herpes 10/25/18 [History Last Taken 07/21/23] melatonin 3 mg capsule 10 mg PO QHS sleep 05/26/19 [History Last Taken 07/21/23] linaclotide 290 mcg capsule (Linzess) 290 mcg PO DAILY bowels 05/28/21 [History Last Taken 07/21/23] ascorbic acid (vitamin C) 1,000 mg tablet (Vitamin C) 1 g PO DAILY supplement 12/03/21 [History Last Taken 07/21/23] clonazepam 0.5 mg tablet (Klonopin) 0.5 mg PO BID PRN Seizures 12/03/21 [History Last Taken 07/21/23] methenamine hippurate 1 gram tablet (Hiprex) 1 g PO QHS bladder infections 12/03/21 [History Last Taken 07/21/23] venlafaxine 150 mg capsule,extended release 24 hr (Effexor XR) 225 mg PO QHS mood 12/03/21 [History Last Taken 07/21/23] rivaroxaban 10 mg tablet (Xarelto) 10 mg PO DAILY blood thinner 07/07/22 [History Last Taken 07/21/23] cholecalciferol (vitamin D3) 1,250 mcg (50,000 unit) capsule 50,000 unit PO FR supplement 02/05/23 [History Last Taken 07/21/23] lacosamide 100 mg tablet (Vimpat) 100 mg PO DAILY seizures 02/05/23 [History Last Taken 07/21/23] lacosamide 200 mg tablet (Vimpat) 200 mg PO QHS seizures 02/05/23 [History Last Taken 07/21/23] lactulose 10 gram/15 mL oral solution 15 ml PO BID PRN PRN Constipation 02/05/23 [History Last Taken Unknown] ropinirole 0.5 mg tablet 0.5 mg PO BID restless legs 02/05/23 [History Last Taken 07/21/23] omeprazole 40 mg capsule,delayed release 40 mg PO BID 02/23/23 [History Last Taken 07/21/23] ondansetron 4 mg disintegrating tablet 4 mg PO Q6H PRN nausea 02/23/23 [History Last Taken Unknown] fenofibrate nanocrystallized 145 mg tablet 145 mg PO QHS 05/07/23 [History Last Taken 07/21/23] aripiprazole 10 mg tablet 10 mg PO DAILY 06/23/23 [History Last Taken 07/21/23] benztropine 0.5 mg tablet 0.5 mg PO BID 06/23/23 [History Last Taken 07/21/23] divalproex 250 mg tablet,delayed release 250 mg PO Q12H 06/23/23 [History Last Taken 07/21/23] clonidine HCl 0.2 mg tablet 0.2 mg PO DAILY 07/22/23 [History Last Taken 07/21/23] metoprolol succinate 25 mg tablet,extended release 24 hr 25 mg PO DAILY 07/22/23 [History Last Taken 07/21/23] mirtazapine 7.5 mg tablet 7.5 mg PO DAILY 07/22/23 [History Last Taken 07/21/23] ondansetron 4 mg disintegrating tablet 4 mg PO Q8H PRN PRN Nausea #10 tabs 08/02/23 [Rx Last Taken Unknown] oxycodone 5 mg tablet 5 mg PO TID PRN pain 1 day #3 tabs 08/02/23 [Rx Last Taken Unknown] ondansetron 4 mg disintegrating tablet 4 mg PO Q8H PRN PRN Nausea #10 tabs 08/11/23 [Rx Last Taken Unknown] oxycodone 5 mg tablet 5 mg PO Q8H PRN pain 3 days #10 tabs 08/11/23 [Rx Last Taken Unknown] promethazine 25 mg tablet 25 mg PO TID PRN nausea and vomiting #10 tabs 08/11/23 [Rx Last Taken Unknown] hydrochlorothiazide 25 mg tablet 25 mg PO DAILY PRN edema 08/14/23 [History Last Taken Unknown] Allergy/AdvReac Type Severity Reaction Status Date / Time gabapentin [From Neurontin] Allergy Rash Verified 08/14/23 18:17 Penicillins Allergy Rash Verified 08/14/23 18:17 Sulfa (Sulfonamide Allergy Rash Verified 08/14/23 18:17 Antibiotics) Family History Mother Hypertension Hyperlipidemia Father Heart disease Surgical History H/O: History of appendectomy History of embolic filter insertion History of hysterectomy Hx of cholecystectomy Social History household members: none Smoking Status: Current every day smoker tobacco type: e-cigarettes alcohol intake: former substance use type: marijuana ROS ROS ED Review of Systems ROS Unobtainable: other Constitutional Constitutional ED: Reports lethargy; Denies chills, fever(s), sweats or weight loss Eyes Eyes: Denies blurry vision, change in vision or diplopia ENT ENT ED: Denies rhinorrhea or sore throat Cardiovascular Cardiovascular: Denies chest pain, orthopnea or racing heartbeat Respiratory/Chest Respiratory/Chest: Denies cough, dyspnea, dyspnea on exertion, orthopnea or sputum Gastrointestinal Gastrointestinal: Reports abdominal pain and nausea; Denies diarrhea or vomiting Genitourinary Genitourinary ED: Denies dysuria, hematuria or urinary frequency Musculoskeletal Musculoskeletal: Denies arthralgias, back pain, myalgias or neck pain Integumentary Denies abscess, Abrasions or rash Neurologic Neurologic: Denies headache(s) or weakness Psychiatric Psychiatric: Denies anxiety, depression or suicidal thoughts Endocrine Endocrinology: Denies polydipsia, polyphagia or polyuria Hematologic/Lymphatic Hematologic/Lymphatic: Denies easy bleeding, easy bruising or lymphadenopathy Allergic/Immunologic Allergic/Immunologic ED: Denies mouth swelling, tongue swelling or urticaria EXAM Physical Exam Const Vital Signs: 08/17/23 15:19 08/17/23 15:29 Temperature 96.7 F L Temperature Source Temporal Pulse Rate 127 H Respiratory Rate 22 H Respiratory Effort Normal Non-Labored Respiratory Pattern Normal Blood Pressure 166/118 H Blood Pressure Mean 134 Pulse Ox 98 Oxygen Delivery Method Room Air Positive well nourished and well developed General Appearance ED: well developed and NAD HEENT Reports TM's clear and moist mucous membranes normocephalic and atraumatic; Negative for trauma or tenderness Tympanic Membrane ED: Yes TM's clear Eyes PERRL and EOMs intact bilaterally General Eye ED: Negative for pale conjunctiva or scleral icterus Neck no lymphadenopathy, supple and no JVD General: Negative for tenderness Chest Wall inspection of chest normal and palpation of chest normal Chest: Negative for tenderness Resp normal respiratory effort and clear to auscultation bilaterally Effort and Inspection: Negative for respiratory distress or pain with movement Auscultation: Negative for rhonchi, wheezes or diminished lung sounds Cardio regular rate, regular rhythm, S1 normal heart sound, S2 normal heart sound and no murmurs Peripheral Pulses: pulses 2+ throughout GI normal to inspection, nondistended, normoactive bowel sounds, soft to palpation, non-distended and no masses GI Narrative: Tenderness in the epigastric region with guarding. There is no rebound, rigidity, or pineal signs. No mass palpated. Back/Spine no CVA tenderness and no thoracic nor lumbar tenderness Extremity normal to inspection General Extremety ED: Negative for edema General Extremity: Negative for edema Neuro oriented x3, CN's II-XII intact bilaterally, no sensory deficits noted and gait normal Sensorium / Orientation: awake, alert, oriented to person, oriented to place and oriented to time Motor Exam: strength 5/5 throughout and strength abnormal Psych mental status grossly normal Skin no rashes or lesions noted and no wounds MDM MDM MDM Narrative Medical decision making narrative: Presents with abdominal pain that is typical of her chronic pancreatitis. She has had multiple visits to this emergency department for same. Patient also with episodes of hyperglycemia. IV line established. CBC with differential obtained showed white count 12.4 with hemoglobin of 12.4 and platelet count of 355. Chemistries unremarkable. Glucose was 350. Lactate slightly elevated 2.7. Lipase was 210. Patient was medicated with Dilaudid and Zofran and given a liter mostly fluid bolus. She was given insulin subcu 5 units. Patient continues to complain of pain and was given another milligram of Dilaudid IV and Zofran 4 mg IV. Case will be discussed with hospitalist to evaluate patient for admission for abdominal pain and pancreatitis as well as hyperglycemia. Not think any further imaging was indicated as patient recently had a CT scan of the abdomen pelvis and she had multiple scans. Lab Data Attestation: I reviewed the patient's lab results. Labs: Laboratory Results - last 24 hr 08/17/23 16:43 WBC 12.4 H RBC 4.31 Hgb 12.4 Hct 38.4 MCV 89.1 MCH 28.8 MCHC 32.3 RDW Std Deviation 44.4 H RDW Coeff of Megan 13.7 Plt Count 355 MPV 8.5 Immature Gran % (Auto) 0.600 Neut % (Auto) 82.8 H Lymph % (Auto) 10.2 L Chambers % (Auto) 4.6 Eos % (Auto) 1.3 Baso % (Auto) 0.5 Absolute Neuts (auto) 10.3 H Absolute Lymphs (auto) 1.26 Nucleated RBC % 0 Sodium 134 L Potassium 4.0 Chloride 100 Carbon Dioxide 22.0 Anion Gap 12 BUN 25 H Creatinine 1.09 H Est GFR (MDRD) Af Amer 69 Est GFR (MDRD) Non-Af 57 L BUN/Creatinine Ratio 22.9 H Glucose 350 H Lactic Acid 2.7 H* Calcium 8.4 L Total Bilirubin 0.30 AST 16 ALT 61 H Alkaline Phosphatase 107 Total Protein 7.4 Albumin 3.2 Globulin 4.2 Albumin/Globulin Ratio 0.8 L Lipase 210 H Discharge Plan Triage Chief Complaint: Abd Pain Other Complaint: Hyperglycemia ED Provider: Zane Orlando Dx/Rx/DC Orders Clinical Impression: Acute hyperglycemia, Chronic pancreatitis, Abdominal pain Prescriptions: No Action ondansetron 4 mg tablet,disintegrating 4 mg PO Q6H PRN (Reason: nausea) omeprazole 40 mg capsule,delayed release(DR/EC) 40 mg PO BID furosemide 40 MG tablet 40 mg PO DAILY potassium chloride 10 MEQ tablet 20 meq PO TID valacyclovir [Valtrex] 500 MG tablet 500 mg PO DAILY melatonin 3 MG capsule 10 mg PO QHS Linzess 290 mcg capsule 290 mcg PO DAILY Patient Comments: take 1 capsule by mouth once daily methenamine hippurate [Hiprex] 1 gram Tablet 1 g PO QHS ascorbic acid (vitamin C) [Vitamin C] 1,000 mg Tablet 1 g PO DAILY clonazepam [Klonopin] 0.5 mg Tablet 0.5 mg PO BID PRN (Reason: Seizures) venlafaxine [Effexor XR] 150 mg Capsule,Extended Release 24hr 225 mg PO QHS Xarelto 10 mg tablet 10 mg PO DAILY ropinirole 0.5 mg Tablet 0.5 mg PO BID lactulose 10 gram/15 mL Solution 15 ml PO BID PRN PRN (Reason: Constipation) cholecalciferol (vitamin D3) 1,250 mcg (50,000 unit) capsule 50,000 unit PO FR Patient Comments: TAKE 1 CAPSULE BY MOUTH EVERY WEEK lacosamide [Vimpat] 100 mg Tablet 100 mg PO DAILY lacosamide [Vimpat] 200 mg Tablet 200 mg PO QHS aripiprazole 10 mg tablet 10 mg PO DAILY benztropine 0.5 mg tablet 0.5 mg PO BID Patient Comments: TAKE 1 TABLET BY MOUTH TWICE DAILY As Needed for eps divalproex 250 mg tablet,delayed release (DR/EC) 250 mg PO Q12H Patient Comments: TAKE 1 TABLET TWICE DAILY for mood clonidine HCl 0.2 mg tablet 0.2 mg PO DAILY metoprolol succinate 25 mg tablet extended release 24 hr 25 mg PO DAILY Patient Comments: TAKE 1 TABLET BY MOUTH DAILY mirtazapine 7.5 mg tablet 7.5 mg PO DAILY Patient Comments: TAKE 1 TABLET BY MOUTH DAILY AT BEDTIME fenofibrate nanocrystallized 145 mg tablet 145 mg PO QHS oxycodone 5 mg tablet 5 mg PO TID PRN (Reason: pain) 1 Days Qty: 3 0RF ondansetron 4 mg tablet,disintegrating 4 mg PO Q8H PRN PRN (Reason: Nausea) Qty: 10 0RF ondansetron 4 mg tablet,disintegrating 4 mg PO Q8H PRN PRN (Reason: Nausea) Qty: 10 0RF promethazine 25 mg tablet 25 mg PO TID PRN (Reason: nausea and vomiting) Qty: 10 0RF oxycodone 5 mg tablet 5 mg PO Q8H PRN (Reason: pain) 3 Days Qty: 10 0RF hydrochlorothiazide 25 mg tablet 25 mg PO DAILY PRN (Reason: edema) Rx Instructions: take this only if necessary Primary Care Provider: Rin Rivera NP Referrals: Rin Rivera NP, [facility] [facility] [Primary Care Provider] - Disposition Disposition: Acute Care Hospital [facility]
[2023-08-17] MEDS: HYDROmorphone 1 MG/ML Syringe IV ×2 (16:06→18:04)
[2023-08-17] MEDS: 0.9% Normal Saline (1000mL) 1,000 ML 125 ML IV (16:06)
[2023-08-17 16:59] LABS: Absolute Lymphocyte Count 1.26 X10^3/uL (0.83-4.51); Absolute Neutrophil Count 10.3 X10^3/uL (2.0-7.7); Basophil# 0.06 X10^3/uL; Basophil% 0.5 % (0-1); Eosinophil# 0.16 X10^3/uL; Eosinophils% 1.3 % (0-5); Hematocrit 38.4 % (37-47); Hemoglobin 12.4 g/dL (12.0-15.0); Lymphocyte # 1.26 X10^3/ul (0.83-4.51); Lymphocyte % 10.2 % (19-41); Mean Corp Hgb Conc 32.3 g/dL (32-36); Mean Corpuscular Hgb 28.8 pg (27.0-32.0); Mean Corpuscular Volume 89.1 fL (81-99); Mean Platelet Vol. 8.5 fl (6.2-12.0); Monocyte# 0.57 X10^3/uL; Monocyte% 4.6 % (0-10); NRBC Flagged by Analyzer 0 % (0-5); Neutrophil # 10.29 X10^3/uL (2.7-7.7); Neutrophil % 82.8 % (47-70); Platelet Count 355 K/mm3 (150-450); RBC Distribution Width CV 13.7 % (11.6-14.6); RBC Distribution Width SD 44.4 fl (35.1-43.9); Red Blood Count 4.31 M/mm3 (4.2-5.4); White Blood Count 12.4 K/mm3 (4.4-11.0)
[2023-08-17 17:25] LABS: ALB/GLOB Ratio 0.8 RATIO (0.9-2.4); AST(SGOT) 16 U/L (15-37); Alanine Aminotransfer ALT/SGPT 61 U/L (13-56); Albumin, Serum 3.2 g/dL (3.2-5.0); Alkaline Phosphatase 107 U/L (45-117); Anion Gap 12 (5-15); BUN 25 mg/dL (7-18); BUN/Creat Ratio 22.9 RATIO (10-20); Calcium,Total 8.4 mg/dL (8.5-10.1); Chloride 100 mmol/L (98-107); Creatinine, Serum 1.09 mg/dL (0.55-1.02); EST Glomerular Filtration Rate 57 mL/min (>60); Est Glom Filt Rate - Afr Amer 69 mL/min (>60); Globulin 4.2 g/dL (2.2-4.2); Glucose 350 mg/dL (74-106); Lipase 210 U/L (13-75); Protein, Total 7.4 g/dL (6.4-8.2); Sodium Level 134 mmol/L (136-145)
[2023-08-17 17:40] LABS: Lactic Acid 2.7 mmol/L (0.4-1.9)
--- NOTE | 2023-08-17 17:43 | PCM.HP.STD ---
HPI - General General Date of Admission: 08/17/23 Date of Service: 08/17/23 Chief Complaint: Recurrent abdominal pain, elevated blood sugars HPI Narrative DOROTHEA RUTLEDGE, is a 47 F who presented to [facility] ED on 08/17/2023 with recurrent abdominal pain and elevated blood sugars. Patient seen at bedside in the ED, boyfriend present. Patient was laying in bed and appeared fairly comfortable, in no acute distress. Patient reported mild abdominal pain during our encounter, had experienced some relief of pain with the dose of IV Dilaudid that have been given prior to my interview. Patient has complicated history of chronic pancreatitis with chronic abdominal pain, with several ED visits and admissions recently. Follows with GI and pain management with . Had a PICC line placed at the beginning of July and received her first infusion of IV lidocaine and ketamine on 08/02 as prescribed by her pain management physician. Patient states that this infusion was helpful initially for pain, however the effect seems to have worn off for the most part now. Notes that she does have infusions scheduled again for August 23 and September 06. Appears that she is only taking oxycodone as needed at home for the pain, along with her litany of other home medications for various medical conditions. Patient is concerned about her elevated blood glucose levels. States she was in the ED 3 days ago and her blood sugar was over 500. Notes that she has had blood sugars in the 200s and 300s since earlier this month, states she had never had issues with her blood sugars up to that point. She denies any polyuria or polydipsia. Denies any lightheadedness or dizziness. Has been feeling nauseous and not eating much over the past few days. Patient otherwise denies any fevers or chills, chest pain, shortness of breath. No other acute concerns currently. [facility] Medical History (Updated 08/17/23 @ 17:[address] Zane Orlando, ) Anxiety Chronic constipation Chronic diastolic HF (heart failure) Depression DVT (deep venous thrombosis) Epilepsy Factor V Leiden mutation Former smoker GERD (gastroesophageal reflux disease) History of CVA (cerebrovascular accident) History of pulmonary embolus (PE) Hyperlipidemia Hypertension Pancreatitis Presence of IVC filter Seizure disorder Stroke/cerebrovascular accident Substance abuse Vitamin D deficiency Home Medications furosemide 40 mg tablet 40 mg PO DAILY water pill 09/10/16 [History Last Taken 08/17/23] potassium chloride 10 mEq tablet,extended release(part/cryst) 20 meq PO TID supplment 09/10/16 [History Last Taken 08/17/23] valacyclovir 500 mg tablet (Valtrex) 500 mg PO DAILY herpes 10/25/18 [History Last Taken 08/17/23] linaclotide 290 mcg capsule (Linzess) 290 mcg PO DAILY bowels 05/28/21 [History Last Taken 08/17/23] clonazepam 0.5 mg tablet (Klonopin) 0.5 mg PO DAILY PRN Seizures 12/03/21 [History Last Taken 08/16/23] methenamine hippurate 1 gram tablet (Hiprex) 1 g PO QHS bladder infections 12/03/21 [History Last Taken 08/16/23] venlafaxine 150 mg capsule,extended release 24 hr (Effexor XR) 225 mg PO QHS mood 12/03/21 [History Last Taken 08/17/23] rivaroxaban 10 mg tablet (Xarelto) 10 mg PO QHS blood thinner 07/07/22 [History Last Taken 08/16/23] cholecalciferol (vitamin D3) 1,250 mcg (50,000 unit) capsule 50,000 unit PO FR supplement 02/05/23 [History Last Taken 08/12/23] lacosamide 100 mg tablet (Vimpat) 100 mg PO DAILY seizures 02/05/23 [History Last Taken 08/17/23] lacosamide 200 mg tablet (Vimpat) 200 mg PO QHS seizures 02/05/23 [History Last Taken 08/16/23] lactulose 10 gram/15 mL oral solution 15 ml PO BID PRN Constipation 02/05/23 [History Last Taken Unknown] ropinirole 0.5 mg tablet 0.5 mg PO BID restless legs 02/05/23 [History Last Taken 08/17/23] omeprazole 40 mg capsule,delayed release 40 mg PO BID 02/23/23 [History Last Taken 08/17/23] fenofibrate nanocrystallized 145 mg tablet 145 mg PO QHS 05/07/23 [History Last Taken 08/16/23] aripiprazole 10 mg tablet 10 mg PO DAILY MOOD 06/23/23 [History Last Taken 08/17/23] benztropine 0.5 mg tablet 0.5 mg PO BID 06/23/23 [History Last Taken 07/21/23] divalproex 250 mg tablet,delayed release 250 mg PO Q12H 06/23/23 [History Last Taken 08/17/23] clonidine HCl 0.2 mg tablet 0.2 mg PO DAILY 07/22/23 [History Last Taken 08/17/23] metoprolol succinate 25 mg tablet,extended release 24 hr 25 mg PO DAILY 07/22/23 [History Last Taken 08/17/23] mirtazapine 7.5 mg tablet 7.5 mg PO DAILY DEPRESSION 07/22/23 [History Last Taken 08/16/23] hydrochlorothiazide 25 mg tablet 25 mg PO DAILY edema 08/14/23 [History Last Taken Unknown] affxfptwtk-izocicxpdppkm-prolftwa 50 mg-325 mg-40 mg tablet 1 - 2 tab PO Q4H PRN migraines 08/17/23 [History Last Taken Unknown] lacosamide 100 mg tablet 200 mg PO QHS 08/17/23 [History Last Taken 08/16/23] magnesium glycinate 100 mg tablet (Mag Glycinate) 100 mg PO DAILY 08/17/23 [History Last Taken 08/17/23] melatonin 10 mg tablet 10 mg PO QHS PRN sleep 08/17/23 [History Last Taken Unknown] nitrofurantoin monohydrate/macrocrystals 100 mg capsule (Macrobid) 100 mg PO DAILY PRN antibiotic 08/17/23 [History Last Taken Unknown] Allergy/AdvReac Type Severity Reaction Status Date / Time gabapentin [From Neurontin] Allergy Rash Verified 08/14/23 18:17 Penicillins Allergy Rash Verified 08/14/23 18:17 Sulfa (Sulfonamide Allergy Rash Verified 08/14/23 18:17 Antibiotics) Family History Mother Hypertension Hyperlipidemia Father Heart disease Surgical History H/O: History of appendectomy History of embolic filter insertion History of hysterectomy Hx of cholecystectomy Social History household members: none Smoking Status: Current every day smoker tobacco type: e-cigarettes alcohol intake: former substance use type: marijuana ROS Constitutional Constitutional: Denies chills, fatigue, fever(s) or weakness Eyes Eyes: Denies change in vision Cardiovascular Cardiovascular: Denies chest pain, edema or lightheadedness Respiratory/Chest Respiratory/Chest: Denies cough, shortness of breath at rest or wheezing Gastrointestinal Gastrointestinal: Reports abdominal pain and nausea; Denies constipation, diarrhea or vomiting Genitourinary Genitourinary: Denies dysuria Musculoskeletal Musculoskeletal: Reports myalgias and neck pain; Denies arthralgias Neurologic Neurologic: Denies confusion, dizziness, focal weakness, headache(s), numbness or paresthesias Psychiatric Psychiatric: Reports anxiety; Denies depression Vital Signs Vital Signs Vital Signs: 08/17/23 15:19 08/17/23 15:29 Temperature 96.7 F L Temperature Source Temporal Pulse Rate 127 H Respiratory Rate 22 H Respiratory Effort Normal Non-Labored Respiratory Pattern Normal Blood Pressure 166/118 H Blood Pressure Mean 134 Pulse Ox 98 Oxygen Delivery Method Room Air Physical Exam Const alert, oriented x3 and no apparent distress Constitutional Narrative: Middle-aged female, morbidly obese, laying in bed, conversing normally, mild distress due to abdominal discomfort. General Appearance: cooperative HEENT normocephalic, head/scalp atraumatic, hearing grossly normal bilaterally, nasal mucous membranes and turbinates normal and moist oral mucous membranes Eyes PERRL, EOMs intact bilaterally and conjunctivae normal Neck full ROM, no lymphadenopathy and supple Lymph Lymphatic: no lymphadenopathy noted Chest inspection of chest normal Resp normal respiratory effort, normal air movement, no use of accessory muscles and clear to auscultation bilaterally Cardio regular rate, regular rhythm, no murmurs and peripheral pulses 2+ throughout GI GI Narrative: Abdomen soft, nondistended. Mildly tender to palpation diffusely, worst in epigastric region. No guarding noted. Back/Spine normal ROM Extremity normal to inspection, full ROM and no pedal edema Skin no rashes or lesions noted Neuro moves all extremities and no focal motor deficits Speech: speech normal Psych mental status grossly normal Results Lab / Micro Data 08/17/23 16:43 08/17/23 16:43 Labs: Laboratory Results - last 24 hr 08/17/23 16:43: WBC 12.4 H, RBC 4.31, Hgb 12.4, Hct 38.4, MCV 89.1, MCH 28.8, MCHC 32.3, RDW Std Deviation 44.4 H, RDW Coeff of Megan 13.7, Plt Count 355, MPV 8.5, Immature Gran % (Auto) 0.600, Neut % (Auto) 82.8 H, Lymph % (Auto) 10.2 L, [place] % (Auto) 4.6, Eos % (Auto) 1.3, Baso % (Auto) 0.5, Absolute Neuts (auto) 10.3 H, Absolute Lymphs (auto) 1.26, Nucleated RBC % 0, Sodium 134 L, Potassium 4.0, Chloride 100, Carbon Dioxide 22.0, Anion Gap 12, BUN 25 H, Creatinine 1.09 H, Est GFR (MDRD) Af Amer 69, Est GFR (MDRD) Non-Af 57 L, BUN/Creatinine Ratio 22.9 H, Glucose 350 H, Lactic Acid 2.7 H*, Calcium 8.4 L, Total Bilirubin 0.30, AST 16, ALT 61 H, Alkaline Phosphatase 107, Total Protein 7.4, Albumin 3.2, Globulin 4.2, Albumin/Globulin Ratio 0.8 L, Lipase 210 H Assessment & Plan Assessment/Plan (1) Abdominal pain: (2) New onset type 2 diabetes mellitus: PLAN: Plan Patient is a 47-year-old female who presented to [facility] ED on 08/17/2023 with recurrent abdominal pain and elevated blood sugars. 1. Recurrent abdominal pain, known history of chronic pancreatitis with chronic pain Complicated history of chronic recurrent pancreatitis with chronic abdominal pain, with several admissions and ED visits for these concerns. Follows with GI and pain management with . Last admission was from 07/22 to 07/26 for this concern. Post discharge, patient had a PICC line placed and received her first scheduled infusions of apparently lidocaine and ketamine per her pain management physician recommendations on 08/02. States she has infusions scheduled for August 23 and . Reports some improvement after pain infusions but the effect has largely since worn off. Appears that she otherwise takes p.o. oxycodone as needed at home for the pain. CT abdomen pelvis on ED visit on 08/11 showed no acute findings. Patient was fairly comfortable on exam, abdomen was soft and only mildly tender, no need to repeat CT scans at this time. ? Admit under observation status to [facility]. Discussed with patient that the goal should be to limit IV pain medications while here as we can only discharge her on p.o. opiates. Will start p.o. oxycodone 10 mg every 4 hours as needed, along with IV Dilaudid 1 mg every 3 hours as needed for now. Anticipate fairly short hospitalization, can then follow-up with her outpatient pain management provider after discharge. 2. Elevated blood sugars, presumed new onset diabetes mellitus BG 350 on admit. Notably BG was 521 on recent check on 08/14, has had multiple readings in the high 200s and 300s over the last month. On further chart review, sugars seemed to run in the low to mid 100s until mid June 2023. Highest concern is for new functional type 1 diabetes in setting of chronic pancreatitis. Cannot rule out some degree of type 2 diabetes given patient's morbid obesity and other risk factors. Notably, A1c 7.2% on 07/08/2023. Repeat A1c in ED of 8.1%. ? Will start sliding-scale insulin with high medium dosing while inpatient. C-peptide level ordered but unfortunately this is a send out lab, will take several days to result. Will need to consider starting patient on low-dose insulin prior to discharge. Could consider discussing further with Dr. Daniels over the phone with endocrinology. Patient states she follows closely with her PCP, would be happy to see endocrinology in the office on discharge. Chronic medical conditions: ? Morbid obesity: BMI 39 on admit. Complicates care, medical course, recovery and prognosis. ? Factor V Leiden nutation: Continue home Xarelto. ? Seizure disorder: Continue home Vimpat and Depakote. ? Anxiety/depression/insomnia/RLS: Continue home Abilify, benztropine, melatonin, mirtazapine, venlafaxine, pramipexole. DVT prophylaxis: Xarelto CODE STATUS: Full code, verified Expected disposition: Home, 1 to 2 days Total clinical time spent by myself addressing the patient's medical issues, reviewing all the data, and collaborating with patient's care team: 55 minutes. Charges/Coding Visit Charges Inpatient E&M: 39864 Init Hosp L2
--- NOTE | 2023-08-17 17:59 | NURSING ---
MED SURG OBS MOSTELLER PAIN, CHRONIC PANCREATITIS, HYPERGLYCEMIA
[2023-08-17] MEDS: 0.9% Normal Saline (1000mL) 1,000 ML 999 ML IV (18:04)
[2023-08-17] MEDS: Insulin Lispro 100 UNIT/ML INSULN.PEN SC ×2 (18:04→20:14)
[2023-08-17] MEDS: Ondansetron 4 MG/2 ML Vial IV (18:04)
--- NOTE | 2023-08-17 18:07 | ED.RN ---
PICC does not have blood return, pt states that is normal. PICC flushes well, no resistance or pain from pt.
[2023-08-17 19:09] VITALS: BMI 39.3
[2023-08-17 19:15] VITALS: BP 142/102; PULSE 109; RESP 16; O2SAT 98
[2023-08-17 19:50] VITALS: BMI 39.3
[2023-08-17 19:58] VITALS: BP 135/95; PULSE 100; RESP 18; TEMP 37; O2SAT 93
[2023-08-17] MEDS: Acetaminophen 325 MG Tablet 650 MG PO (20:14)
[2023-08-17] MEDS: oxyCODONE 5 MG Tablet PO (20:14)
[2023-08-17] MEDS: Mirtazapine 15 MG Tablet 7.5 MG PO (20:20)
[2023-08-17] MEDS: Pramipexole Di-HCl 0.25 MG Tablet PO (20:20)
[2023-08-17] MEDS: Divalproex Sodium 250 MG Tablet PO (20:20)
[2023-08-17] MEDS: Fenofibrate 145 MG Tablet PO (20:20)
[2023-08-17] MEDS: Pantoprazole Sodium 40 MG Tablet PO (20:20)
[2023-08-17] MEDS: MELATONIN 10 MG TABLET PO (20:20)
[2023-08-17 20:30] VITALS: O2SAT 96
[2023-08-17] MEDS: Lactated Ringers 1,000 ML 100 ML IV (20:30)
[2023-08-17 20:39] LABS: Hemoglobin A1c 8.1 % (3.8-5.6)
[2023-08-17 20:47] LABS: Reflex Lactate? Y
[2023-08-17 20:49] LABS: Bedside Glucose 324 mg/dL (74-106)
--- NOTE | 2023-08-17 21:15 | PCM.HOSP.N ---
Hospitalist Note Notified by nursing that the patient wanted something different for pain as well as her home Klonopin. I reviewed her OARRS and patient last received #10 of Klonopin back in the middle of June. So this is not a routine maintenance medication for her. I went through [facility] and reviewed records of her recent hospitalization in May at [facility]. 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 And that she had followed up with pain management and they were not prescribing her any narcotics. I went and addressed this with the patient and patient did not deny that she has had a problem in the past but stated that it was in the past and that she is having pain now. Patient was resting comfortably in bed in no acute distress. I told the patient that I would not be changing medications that Dr. Alonzo had ordered, however I did speak with him afterwards and he was unaware of the patient's past history and he agreed to discontinue the hydromorphone IV. Given patient's history of opiate and benzodiazepine abuse in the past, her ongoing management with pain management who is not using narcotics, I feel the use of narcotics long-term would be of detriment to her. It is concerning that though the patient does have legitimate medical issues regards to her pancreas and pseudocyst, I am concerned that she may be embellishing her symptoms to elicit prescriptions. Would not be prescribing her any Klonopin here as patient's prescription was only for 10 back in June. And given her history of benzodiazepine abuse, I feel that the risks outweigh the benefits.
[2023-08-17] MEDS: oxyCODONE 5 MG Tablet 10 MG PO (22:17)
[2023-08-17] MEDS: Lacosamide 100 MG Tablet 200 MG PO (22:17)
[2023-08-17] MEDS: Benztropine Mesylate 0.5 MG TABLET PO (22:18)
[2023-08-17 22:41] LABS: Lactic Acid 2.7 mmol/L (0.4-1.9)
--- NOTE | 2023-08-17 23:00 | NURSING ---
orly sandoval notified of lactic 2.7
[2023-08-18] MEDS: oxyCODONE 5 MG Tablet 10 MG PO ×4 (00:54→14:45)
[2023-08-18 01:12] VITALS: BP 122/90; PULSE 92; RESP 18; TEMP 36.9; O2SAT 96
[2023-08-18] MEDS: Acetaminophen 325 MG Tablet 650 MG PO ×2 (05:00→14:45)
[2023-08-18] MEDS: Lactated Ringers 1,000 ML 100 ML IV (05:02)
[2023-08-18] MEDS: Insulin Lispro 100 UNIT/ML INSULN.PEN SC ×2 (05:04→16:50)
[2023-08-18 05:07] VITALS: BP 119/69; PULSE 95; RESP 18; TEMP 36.9; O2SAT 95
[2023-08-18 05:29] LABS: Bedside Glucose 260 mg/dL (74-106)
[2023-08-18 07:47] VITALS: O2SAT 95
[2023-08-18 08:53] VITALS: BP 134/67; PULSE 105; RESP 18; TEMP 36.5; O2SAT 94
[2023-08-18] MEDS: Divalproex Sodium 250 MG Tablet PO ×2 (09:01→16:53)
[2023-08-18] MEDS: Furosemide 40 MG Tablet PO (10:35)
[2023-08-18] MEDS: Pramipexole Di-HCl 0.25 MG Tablet PO (10:35)
[2023-08-18 10:36] VITALS: BP 134/67; PULSE 105
[2023-08-18] MEDS: Metoprolol(XL)Succ 25 MG Tablet PO (10:36)
[2023-08-18] MEDS: ARIPiprazole 10 MG Tablet PO (10:36)
[2023-08-18] MEDS: Benztropine Mesylate 0.5 MG TABLET PO (10:36)
[2023-08-18] MEDS: Pantoprazole Sodium 40 MG Tablet PO (10:36)
[2023-08-18] MEDS: Rivaroxaban 10 MG Tablet PO (10:37)
[2023-08-18] MEDS: Acyclovir 200 MG Capsule 400 MG PO (10:37)
[2023-08-18] MEDS: Lacosamide 100 MG Tablet PO (10:55)
--- NOTE | 2023-08-18 11:03 | DCINST_ITS ---
Discharge Instructions Diet Discharge Diet: 1800 Calorie Control Diet Activity Discharge Activity: Return to Normal Activity Weight Bearing Status: Full weight bearing Follow Up Care Test Results: Test results from this visit will be discussed in further detail at your follow- up appointment, if applicable. Discharge Plan Admission Admit Date/Time: 08/17/23 18:21 Primary Reason for Your Visit: uncontrolled abdominal pain, new onset type 2 DM Attending Provider: Meño Pepper Primary Care Provider: Meño Pepper Consulting Providers: Curtis Alonzo Instructions Additional Instructions / Restrictions: Follow up to get your Mediport placed Discharge Orders/Prescriptions Prescriptions: New oxycodone 5 mg tablet 5 mg PO Q6H PRN (Reason: pain) 3 Days Qty: 16 0RF Rx Instructions: 5-10 mg every 6 hours as needed for pain insulin glargine [Lantus Solostar U-100 Insulin] 100 unit/mL (3 mL) insulin pen 20 unit subcut DAILY Qty: 15 0RF Rx Instructions: start on 08/19/23 (DME) pen needle, diabetic 31 gauge x 1/3 needle See Rx Instructions .Route Qty: 100 0RF Rx Instructions: As directed Continued omeprazole 40 mg capsule,delayed release(DR/EC) 40 mg PO BID furosemide 40 MG tablet 40 mg PO DAILY potassium chloride 10 MEQ tablet 20 meq PO TID valacyclovir [Valtrex] 500 MG tablet 500 mg PO DAILY Linzess 290 mcg capsule 290 mcg PO DAILY methenamine hippurate [Hiprex] 1 gram Tablet 1 g PO QHS clonazepam [Klonopin] 0.5 mg Tablet 0.5 mg PO DAILY PRN (Reason: Seizures) venlafaxine [Effexor XR] 150 mg Capsule,Extended Release 24hr 225 mg PO QHS Xarelto 10 mg tablet 10 mg PO QHS ropinirole 0.5 mg Tablet 0.5 mg PO BID lactulose 10 gram/15 mL Solution 15 ml PO BID PRN (Reason: Constipation) cholecalciferol (vitamin D3) 1,250 mcg (50,000 unit) capsule 50,000 unit PO FR lacosamide [Vimpat] 100 mg Tablet 100 mg PO DAILY lacosamide [Vimpat] 200 mg Tablet 200 mg PO QHS aripiprazole 10 mg tablet 10 mg PO DAILY benztropine 0.5 mg tablet 0.5 mg PO BID divalproex 250 mg tablet,delayed release (DR/EC) 250 mg PO Q12H clonidine HCl 0.2 mg tablet 0.2 mg PO DAILY metoprolol succinate 25 mg tablet extended release 24 hr 25 mg PO DAILY mirtazapine 7.5 mg tablet 7.5 mg PO DAILY fenofibrate nanocrystallized 145 mg tablet 145 mg PO QHS hydrochlorothiazide 25 mg tablet 25 mg PO DAILY melatonin 10 mg tablet 10 mg PO QHS PRN (Reason: sleep) nitrofurantoin monohyd/m-cryst [Macrobid] 100 mg capsule 100 mg PO DAILY PRN (Reason: antibiotic) Mag Glycinate 100 mg tablet 100 mg PO DAILY lacosamide 100 mg tablet 200 mg PO QHS mwyjvfqdiq-bwvsuunmsjwru-yvzw 50-325-40 mg tablet 1 - 2 tab PO Q4H PRN (Reason: migraines) Referrals / Follow Up: Rin Rivera [employer], [employer] [Non-Staff] - See Referral Note (this week) Disposition Disposition (needs filled in before D/C Order can be placed): Home Health Service
--- NOTE | 2023-08-18 11:19 | DS.PCM_ITS ---
Providers Date of Admission: 08/17/23 Date of Discharge: 08/18/23 Primary Care Physician: Dr. Meño Pepper DO Reason For Visit: ABDOMINAL PAIN / HYPERGLYCEMIA Diagnosis Discharge Diagnosis (1) Abdominal pain: Status: Acute Code(s): R10.9 - Unspecified abdominal pain (2) New onset type 2 diabetes mellitus: Status: Acute Code(s): E11.9 - Type 2 diabetes mellitus without complications Plan 1. Uncontrolled abdominal pain secondary to chronic pancreatitis #2 type 2 diabetes-new diagnosis #3 factor V Leiden mutation #4 seizure disorder Medications at Discharge Home Medications furosemide 40 mg tablet 40 mg PO DAILY water pill 09/10/16 potassium chloride 10 mEq tablet,extended release(part/cryst) 20 meq PO TID supplment 09/10/16 valacyclovir 500 mg tablet (Valtrex) 500 mg PO DAILY herpes 10/25/18 linaclotide 290 mcg capsule (Linzess) 290 mcg PO DAILY bowels 05/28/21 clonazepam 0.5 mg tablet (Klonopin) 0.5 mg PO DAILY PRN Seizures 12/03/21 methenamine hippurate 1 gram tablet (Hiprex) 1 g PO QHS bladder infections 12/03/21 venlafaxine 150 mg capsule,extended release 24 hr (Effexor XR) 225 mg PO QHS mood 12/03/21 rivaroxaban 10 mg tablet (Xarelto) 10 mg PO QHS blood thinner 07/07/22 cholecalciferol (vitamin D3) 1,250 mcg (50,000 unit) capsule 50,000 unit PO FR supplement 02/05/23 lacosamide 100 mg tablet (Vimpat) 100 mg PO DAILY seizures 02/05/23 lacosamide 200 mg tablet (Vimpat) 200 mg PO QHS seizures 02/05/23 lactulose 10 gram/15 mL oral solution 15 ml PO BID PRN Constipation 02/05/23 ropinirole 0.5 mg tablet 0.5 mg PO BID restless legs 02/05/23 omeprazole 40 mg capsule,delayed release 40 mg PO BID 02/23/23 fenofibrate nanocrystallized 145 mg tablet 145 mg PO QHS 05/07/23 aripiprazole 10 mg tablet 10 mg PO DAILY MOOD 06/23/23 benztropine 0.5 mg tablet 0.5 mg PO BID 06/23/23 divalproex 250 mg tablet,delayed release 250 mg PO Q12H 06/23/23 clonidine HCl 0.2 mg tablet 0.2 mg PO DAILY 07/22/23 metoprolol succinate 25 mg tablet,extended release 24 hr 25 mg PO DAILY 07/22/23 mirtazapine 7.5 mg tablet 7.5 mg PO DAILY DEPRESSION 07/22/23 hydrochlorothiazide 25 mg tablet 25 mg PO DAILY edema 08/14/23 urgrgbqebf-sgfzkkwzdbhbe-ewhlrnvf 50 mg-325 mg-40 mg tablet 1 - 2 tab PO Q4H PRN migraines 08/17/23 lacosamide 100 mg tablet 200 mg PO QHS 08/17/23 magnesium glycinate 100 mg tablet (Mag Glycinate) 100 mg PO DAILY 08/17/23 melatonin 10 mg tablet 10 mg PO QHS PRN sleep 08/17/23 nitrofurantoin monohydrate/macrocrystals 100 mg capsule (Macrobid) 100 mg PO DAILY PRN antibiotic 08/17/23 insulin glargine 100 unit/mL (3 mL) subcutaneous pen (Lantus Solostar U-100 Insulin) 20 unit (0.2 mL) subcut DAILY #15 mL 08/18/23 oxycodone 5 mg tablet 5 mg PO Q6H PRN pain 3 days #16 tabs 08/18/23 pen needle, diabetic 31 gauge x 1/3 #100 ea 08/18/23 Hospital Course Operations None Procedures None Summary of Care Provided Minutes Spent on Discharge: 30 Hospital Course: This 47-year-old white female was seen in the emergency room at [facility] with complaints of generalized abdominal pain which is recurrent and chronic for the patient along with elevated blood sugars. Patient had not yet had a diagnosis of diabetes made. Lab work in the emergency room showed an elevated glucose at 350, patient's white blood cell count was slightly high at 12.4, patient's lactic acid was elevated, ALT was elevated at 61, and lipase was 210. Patient was placed in observation status on MedSurg 3, initially IV narcotics and oral narcotics were ordered, on reevaluation of the patient however it was felt that the patient did not require IV narcotics and these were stopped. Patient's blood sugars were monitored and she received s liding scale insulin. On 08/18/2023, patient was seen and examined: On examination she appeared in good health and spirits, she does not appear to be in any distress. Vital signs as documented. Skin warm and dry and without overt rashes. Neck without JVD, thyroid appears normal, trachea is midline, neck is supple. Lungs clear, normal air movement was noted. Heart exam notable for regular rhythm, normal sounds and absence of murmurs, rubs or gallops. Abdomen unremarkable and without evidence of organomegaly, masses, or abdominal aortic enlargement, bowel sounds are present in all 4 quadrants, no abdominal tenderness was noted. Extremities nonedematous, no cyanosis was noted, no clubbing was noted. Neuro: Cranial nerves II through XII are grossly intact, no focal motor deficits were noted, sensation to light touch and pinprick is intact, motor exam 5/5 throughout. Psych: Patient is alert and oriented x3, she does not appear anxious or depressed, she does not appear agitated. Patient was felt to be stable for discharge home on 08/18/2023, she told this examiner that she was scheduled to have a Mediport inserted August 26, 2023 and she was also scheduled for an IV infusion of ketamine on August 23, 2023. I elected to send the patient home with a PICC line inserted, she states that the reason why she still have the PICC line was that previously interventional radiology was supposed to place a Mediport in July but subsequently refused to do it stating it was inappropriate. She then got the Mediport rescheduled for August by her linseed cake trimmer and pain management physician. Patient was discharged home on basal insulin, she stated that she was going to see her PCP on 08/19/2023. As a further note, patient stated that she was taking Klonopin on a regular basis, according to the [place] report which was checked by the hospitalist during this admission, she had only a prescription for Klonopin for 10 pills given to her in June 2023. Weight / BMI Weight Weight: 100.698 kg Body Mass Index (BMI) 39.3 ABG / Lab / Microbiology Data 08/17/23 16:43 08/17/23 16:43 Laboratory: Laboratory Results - last 24 hr 08/17/23 16:43: WBC 12.4 H, RBC 4.31, Hgb 12.4, Hct 38.4, MCV 89.1, MCH 28.8, MCHC 32.3, RDW Std Deviation 44.4 H, RDW Coeff of Megan 13.7, Plt Count 355, MPV 8.5, Immature Gran % (Auto) 0.600, Neut % (Auto) 82.8 H, Lymph % (Auto) 10.2 L, Banner % (Auto) 4.6, Eos % (Auto) 1.3, Baso % (Auto) 0.5, Absolute Neuts (auto) 10.3 H, Absolute Lymphs (auto) 1.26, Nucleated RBC % 0, Sodium 134 L, Potassium 4.0, Chloride 100, Carbon Dioxide 22.0, Anion Gap 12, BUN 25 H, Creatinine 1.09 H, Est GFR (MDRD) Af Amer 69, Est GFR (MDRD) Non-Af 57 L, BUN/Creatinine Ratio 22.9 H, Glucose 350 H, Hemoglobin A1c 8.1 H, Lactic Acid 2.7 H*, Calcium 8.4 L, Total Bilirubin 0.30, AST 16, ALT 61 H, Alkaline Phosphatase 107, Total Protein 7.4, Albumin 3.2, Globulin 4.2, Albumin/Globulin Ratio 0.8 L, Lipase 210 H 08/17/23 20:13: POC Glucose 324 H 08/17/23 22:04: Lactic Acid 2.7 H* 08/17/23 : Lactic Acid Cancelled 08/18/23 05:04: POC Glucose 260 H D/C Instructions Discharge Diet: 1800 Calorie Control Diet Weight Bearing Status: Full weight bearing Meaningful Use Info Meaningful Use Diagnoses (Choose all that apply): None applicable Discharge Plan Admission Admit Date/Time: 08/17/23 18:21 Primary Reason for Your Visit: uncontrolled abdominal pain, new onset type 2 DM Attending Provider: Meño Pepper Primary Care Provider: Meño Pepper Consulting Providers: Curtis Alonzo Instructions Additional Instructions / Restrictions: Follow up to get your Mediport placed Discharge Orders/Prescriptions Prescriptions: New oxycodone 5 mg tablet 5 mg PO Q6H PRN (Reason: pain) 3 Days Qty: 16 0RF Rx Instructions: 5-10 mg every 6 hours as needed for pain insulin glargine [Lantus Solostar U-100 Insulin] 100 unit/mL (3 mL) insulin pen 20 unit subcut DAILY Qty: 15 0RF Rx Instructions: start on 08/19/23 (DME) pen needle, diabetic 31 gauge x 1/3 needle See Rx Instructions .Route Qty: 100 0RF Rx Instructions: As directed Continued omeprazole 40 mg capsule,delayed release(DR/EC) 40 mg PO BID furosemide 40 MG tablet 40 mg PO DAILY potassium chloride 10 MEQ tablet 20 meq PO TID valacyclovir [Valtrex] 500 MG tablet 500 mg PO DAILY Linzess 290 mcg capsule 290 mcg PO DAILY methenamine hippurate [Hiprex] 1 gram Tablet 1 g PO QHS clonazepam [Klonopin] 0.5 mg Tablet 0.5 mg PO DAILY PRN (Reason: Seizures) venlafaxine [Effexor XR] 150 mg Capsule,Extended Release 24hr 225 mg PO QHS Xarelto 10 mg tablet 10 mg PO QHS ropinirole 0.5 mg Tablet 0.5 mg PO BID lactulose 10 gram/15 mL Solution 15 ml PO BID PRN (Reason: Constipation) cholecalciferol (vitamin D3) 1,250 mcg (50,000 unit) capsule 50,000 unit PO FR lacosamide [Vimpat] 100 mg Tablet 100 mg PO DAILY lacosamide [Vimpat] 200 mg Tablet 200 mg PO QHS aripiprazole 10 mg tablet 10 mg PO DAILY benztropine 0.5 mg tablet 0.5 mg PO BID divalproex 250 mg tablet,delayed release (DR/EC) 250 mg PO Q12H clonidine HCl 0.2 mg tablet 0.2 mg PO DAILY metoprolol succinate 25 mg tablet extended release 24 hr 25 mg PO DAILY mirtazapine 7.5 mg tablet 7.5 mg PO DAILY fenofibrate nanocrystallized 145 mg tablet 145 mg PO QHS hydrochlorothiazide 25 mg tablet 25 mg PO DAILY melatonin 10 mg tablet 10 mg PO QHS PRN (Reason: sleep) nitrofurantoin monohyd/m-cryst [Macrobid] 100 mg capsule 100 mg PO DAILY PRN (Reason: antibiotic) Mag Glycinate 100 mg tablet 100 mg PO DAILY lacosamide 100 mg tablet 200 mg PO QHS gadzqxspwl-sogmzkufnulzu-frdt 50-325-40 mg tablet 1 - 2 tab PO Q4H PRN (Reason: migraines) Referrals / Follow Up: Rin Rivera SODA JERKER, [facility]A JERK[facility]-C [Non-Staff] - See Referral Note (this week) Disposition Disposition (needs filled in before D/C Order can be placed): Home Health Service Charges/Coding Visit Charges Inpatient E&M: 96298 Disch Hosp
[2023-08-18] MEDS: HYDROmorphone 1 MG/ML Syringe IV (11:44)
--- NOTE | 2023-08-18 11:49 | CASEMGMT ---
Spoke with hospitalist and charge nurse who states pt picc was changed today, she has a pain mgmt appt on Aug.23 and pt will need to have picc dressing changed then. Pt has an appt that was set up by her GI dr to have a port placed on Aug.26. Pt has PCP appt tomorrow. TC to Peri at [facility] to make aware of this information. She states pt had 8 flushes as of Tuesday. She states there is not a refill on the rx. If pt needs more flushes an order will need to be given. Updated RN LULU Walters who will see pt to discuss.
--- NOTE | 2023-08-18 11:56 | PHA.DC_ITS ---
Pharmacy [facility] has performed discharge medication reconciliation and counseling for this patient. The patient was counseled on the following discharge medications and changes in medications for homegoing were reviewed. 1. OXYCODONE 2. INSULIN GLARGINE The Reason for Use, instructions for use, and potential side effects were r eviewed for all new medications. The patient's questions regarding all of their medications were answered. The patient was able to verbally demonstrate an understanding of their discharge medications. The patient's discharge medication list was reviewed for discrepancies and discrepancies were resolved. Medications at Discharge Home Medications furosemide 40 mg tablet 40 mg PO DAILY water pill 09/10/16 potassium chloride 10 mEq tablet,extended release(part/cryst) 20 meq PO TID supplment 09/10/16 valacyclovir 500 mg tablet (Valtrex) 500 mg PO DAILY herpes 10/25/18 linaclotide 290 mcg capsule (Linzess) 290 mcg PO DAILY bowels 05/28/21 clonazepam 0.5 mg tablet (Klonopin) 0.5 mg PO DAILY PRN Seizures 12/03/21 methenamine hippurate 1 gram tablet (Hiprex) 1 g PO QHS bladder infections 12/03/21 venlafaxine 150 mg capsule,extended release 24 hr (Effexor XR) 225 mg PO QHS mood 12/03/21 rivaroxaban 10 mg tablet (Xarelto) 10 mg PO QHS blood thinner 07/07/22 cholecalciferol (vitamin D3) 1,250 mcg (50,000 unit) capsule 50,000 unit PO FR supplement 02/05/23 lacosamide 100 mg tablet (Vimpat) 100 mg PO DAILY seizures 02/05/23 lacosamide 200 mg tablet (Vimpat) 200 mg PO QHS seizures 02/05/23 lactulose 10 gram/15 mL oral solution 15 ml PO BID PRN Constipation 02/05/23 ropinirole 0.5 mg tablet 0.5 mg PO BID restless legs 02/05/23 omeprazole 40 mg capsule,delayed release 40 mg PO BID 02/23/23 fenofibrate nanocrystallized 145 mg tablet 145 mg PO QHS 05/07/23 aripiprazole 10 mg tablet 10 mg PO DAILY MOOD 06/23/23 benztropine 0.5 mg tablet 0.5 mg PO BID 06/23/23 divalproex 250 mg tablet,delayed release 250 mg PO Q12H 06/23/23 clonidine HCl 0.2 mg tablet 0.2 mg PO DAILY 07/22/23 metoprolol succinate 25 mg tablet,extended release 24 hr 25 mg PO DAILY 07/22/23 mirtazapine 7.5 mg tablet 7.5 mg PO DAILY DEPRESSION 07/22/23 hydrochlorothiazide 25 mg tablet 25 mg PO DAILY edema 08/14/23 ynxmytvxsw-xyzkftkkyignt-upoqsgar 50 mg-325 mg-40 mg tablet 1 - 2 tab PO Q4H PRN migraines 08/17/23 lacosamide 100 mg tablet 200 mg PO QHS 08/17/23 magnesium glycinate 100 mg tablet (Mag Glycinate) 100 mg PO DAILY 08/17/23 melatonin 10 mg tablet 10 mg PO QHS PRN sleep 08/17/23 nitrofurantoin monohydrate/macrocrystals 100 mg capsule (Macrobid) 100 mg PO DAILY PRN antibiotic 08/17/23 insulin glargine 100 unit/mL (3 mL) subcutaneous pen (Lantus Solostar U-100 Insulin) 20 unit (0.2 mL) subcut DAILY #15 mL 08/18/23 oxycodone 5 mg tablet 5 mg PO Q6H PRN pain 3 days #16 tabs 08/18/23 pen needle, diabetic 31 gauge x 1/3 #100 ea 08/18/23
[2023-08-18 12:02] LABS: Bedside Glucose 178 mg/dL (74-106)
--- NOTE | 2023-08-18 12:45 | CASEMGMT ---
Pt. has order in for discharge. KAY LAWSON in to pt. room to discuss needs at discharge. KAY LAWSON confirmed with pt. that she is scheduled to see Pain Management on 08/23/23 and that they can change her PICC dressing at that appointment (KAY LAWSON encouraged pt. to ask them to change it and pt. states she has a sterile dressing kit she will also take with her to that appt.). KAY LAWSON confirmed with pt. that her port will be placed on 08/26/23 by GI. KAY LAWSON verified with pt. that she is scheduled to see her PCP tomorrow morning at 0900. Pt. states she had asked her PCP to set up HHC for her through [facility] for medication management but never heard back from [facility] (Pt. states she plans to follow-up with her PCP tomorrow concerning HHC). Pt. also states that pharmacy was just up to see her and gave her a print-out concerning her new insulin and explained how to use it. Pt. states she feels comfortable with her new insulin and has a glucometer and testing supplies at home (valdivia check at [facility] retail pharmacy shows a $0.00 co-pay for the insulin). Pt. states that she has 9 or 10 flushes for her PICC line and that more are being delivered on Tuesday. Pt. denies having any further needs, questions, or concerns at this time.
[2023-08-18] MEDS: Insulin Glargine-YFGN 100 UNIT/ML Pen 15 UNIT SC (12:53)
--- NOTE | 2023-08-18 13:59 | CHAPLAIN ---
Type of Pastoral Visit _x__ Initial Visit ___ Follow-up Visit ___ On-call Visit ___ General Patient Visit ___ Spiritual Assessment ___ Family Conference ___ Bereavement ___ Rapid Response ___ Code Blue ___ Other (describe below) Pastoral Care Referral From _x__ Patient ___ Family ___ Nurse ___ Physician ___ Vice President & General Manager [employer] ___ Rpg Programmer ___ Other (describe below) Sacrament/Intervention _x__ Active listening ___ Anointing ___ Nondenominational ___ Bereavement ___ Communion _x__ Kathleen exploration ___ _x__ Life review _x__ Prayer ___ Reconciliation ___ Sacrament of Sick _x__ Supportive presence ___ Wedding ___ Other (describe below) Pastoral Comments patient has been seen in previous admissions and 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
[2023-08-18] MEDS: 0.9% Saline Lock 10 ML Syringe IV (14:55)
[2023-08-18 17:01] VITALS: BP 138/96; PULSE 91; RESP 18; TEMP 36.6; O2SAT 92
[2023-08-18 17:11] LABS: Bedside Glucose 191 mg/dL (74-106)
[2023-08-19 13:07] LABS: C-Peptide 2.3 ng/mL (1.1-4.4)
== END 2023-08-18 17:15 | disposition home health service (06) ==
LOC: ED 17:45 → MS3 18:00
PROVIDERS: Admitting Provider Hospitalist; Emergency Provider Emergency Medicine; PCP Internal Medicine; Visit Provider Internal Medicine
DX: K86.1 Other chronic pancreatitis (principal); I50.32 Chronic diastolic (congestive) heart failure; I11.0 Hypertensive heart disease with heart failure; E11.65 Type 2 diabetes mellitus with hyperglycemia; G40.909 Epilepsy, unspecified, not intractable, without status epilepticus; K86.3 Pseudocyst of pancreas; E78.5 Hyperlipidemia, unspecified; F17.290 Nicotine dependence, other tobacco product, uncomplicated; Z79.01 Long term (current) use of anticoagulants; Z79.899 Other long term (current) drug therapy
CPT/HCPCS: 80053; 82962; 83036; 83605; 83690; 84681; 85025; 94668; 96361; 96374; 96375; 96376; 97802; 99221; 99252; 99284; 99406; J7030; J7120; A4216; G0378; G0463; J2405

== ENCOUNTER 2023-08-24 17:48 | Emergency (ER) | payer MEDICARE, SELFPAY ==
[2023-08-24 17:49] VITALS: BP 140/91; PULSE 99; RESP 16; TEMP 36.8; O2SAT 100; BMI 39.1
[2023-08-24] MEDS: 0.9% Normal Saline (1000mL) 1,000 ML 1000 ML IV (18:15)
[2023-08-24 18:34] LABS: Absolute Lymphocyte Count 1.66 X10^3/uL (0.83-4.51); Absolute Neutrophil Count 4.8 X10^3/uL (2.0-7.7); Basophil# 0.06 X10^3/uL; Basophil% 0.8 % (0-1); Eosinophil# 0.22 X10^3/uL; Eosinophils% 3.1 % (0-5); Hematocrit 42.4 % (37-47); Hemoglobin 13.3 g/dL (12.0-15.0); Lymphocyte # 1.66 X10^3/ul (0.83-4.51); Lymphocyte % 23.2 % (19-41); Mean Corp Hgb Conc 31.4 g/dL (32-36); Mean Corpuscular Hgb 28.5 pg (27.0-32.0); Mean Platelet Vol. 8.5 fl (6.2-12.0); Monocyte# 0.35 X10^3/uL; Monocyte% 4.9 % (0-10); NRBC Flagged by Analyzer 0 % (0-5); Neutrophil # 4.83 X10^3/uL (2.7-7.7); Neutrophil % 67.3 % (47-70); Platelet Count 387 K/mm3 (150-450); RBC Distribution Width CV 13.8 % (11.6-14.6); RBC Distribution Width SD 46.5 fl (35.1-43.9); Red Blood Count 4.66 M/mm3 (4.2-5.4); White Blood Count 7.2 K/mm3 (4.4-11.0)
--- NOTE | 2023-08-24 18:49 | EDS_ITS ---
HPI History of Present Illness Chief Complaint: Hyperglycemia Narrative Narrative: 47-year-old female past medical history of chronic pancreatitis, new onset type 2 diabetes for which she was seen in the emergency department initially a few weeks ago, and followed up with her primary care provider. She began having epigastric pain consistent with her chronic pancreatitis, and noticed that today her blood sugars were over 300. She had been started on Lantus which she takes in the morning. She was told that if her blood sugar is over 200 consistently that she needed to call the office or come to the emergency department. She began having abdominal pain and noticed her blood sugars or elevated. It is associated with nausea. No exacerbating or alleviating factors. [facility] Medical History Anxiety Chronic constipation Chronic diastolic HF (heart failure) Depression DVT (deep venous thrombosis) Epilepsy Factor V Leiden mutation Former smoker GERD (gastroesophageal reflux disease) History of CVA (cerebrovascular accident) History of pulmonary embolus (PE) Hyperlipidemia Hypertension Pancreatitis Presence of IVC filter Seizure disorder Stroke/cerebrovascular accident Substance abuse Vitamin D deficiency Home Medications furosemide 40 mg tablet 40 mg PO DAILY water pill 09/10/16 [History Last Taken 08/17/23] potassium chloride 10 mEq tablet,extended release(part/cryst) 20 meq PO TID supplment 09/10/16 [History Last Taken 08/17/23] valacyclovir 500 mg tablet (Valtrex) 500 mg PO DAILY herpes 10/25/18 [History Last Taken 08/17/23] linaclotide 290 mcg capsule (Linzess) 290 mcg PO DAILY bowels 05/28/21 [History Last Taken 08/17/23] clonazepam 0.5 mg tablet (Klonopin) 0.5 mg PO DAILY PRN Seizures 12/03/21 [History Last Taken 08/16/23] methenamine hippurate 1 gram tablet (Hiprex) 1 g PO QHS bladder infections 12/03/21 [History Last Taken 08/16/23] venlafaxine 150 mg capsule,extended release 24 hr (Effexor XR) 225 mg PO QHS mood 12/03/21 [History Last Taken 08/17/23] rivaroxaban 10 mg tablet (Xarelto) 10 mg PO QHS blood thinner 07/07/22 [History Last Taken 08/16/23] cholecalciferol (vitamin D3) 1,250 mcg (50,000 unit) capsule 50,000 unit PO FR supplement 02/05/23 [History Last Taken 08/12/23] lacosamide 100 mg tablet (Vimpat) 100 mg PO DAILY seizures 02/05/23 [History Last Taken 08/17/23] lacosamide 200 mg tablet (Vimpat) 200 mg PO QHS seizures 02/05/23 [History Last Taken 08/16/23] lactulose 10 gram/15 mL oral solution 15 ml PO BID PRN Constipation 02/05/23 [History Last Taken Unknown] ropinirole 0.5 mg tablet 0.5 mg PO BID restless legs 02/05/23 [History Last Taken 08/17/23] omeprazole 40 mg capsule,delayed release 40 mg PO BID 02/23/23 [History Last Taken 08/17/23] fenofibrate nanocrystallized 145 mg tablet 145 mg PO QHS 05/07/23 [History Last Taken 08/16/23] aripiprazole 10 mg tablet 10 mg PO DAILY MOOD 06/23/23 [History Last Taken 08/17/23] benztropine 0.5 mg tablet 0.5 mg PO BID 06/23/23 [History Last Taken 07/21/23] divalproex 250 mg tablet,delayed release 250 mg PO Q12H 06/23/23 [History Last Taken 08/17/23] clonidine HCl 0.2 mg tablet 0.2 mg PO DAILY 07/22/23 [History Last Taken 08/17/23] metoprolol succinate 25 mg tablet,extended release 24 hr 25 mg PO DAILY 07/22/23 [History Last Taken 08/17/23] mirtazapine 7.5 mg tablet 7.5 mg PO DAILY DEPRESSION 07/22/23 [History Last Taken 08/16/23] hydrochlorothiazide 25 mg tablet 25 mg PO DAILY edema 08/14/23 [History Last Taken Unknown] mxfbyzpiim-vqnaqenutzkdz-hcpoczql 50 mg-325 mg-40 mg tablet 1 - 2 tab PO Q4H PRN migraines 08/17/23 [History Last Taken Unknown] lacosamide 100 mg tablet 200 mg PO QHS 08/17/23 [History Last Taken 08/16/23] magnesium glycinate 100 mg tablet (Mag Glycinate) 100 mg PO DAILY 08/17/23 [History Last Taken 08/17/23] melatonin 10 mg tablet 10 mg PO QHS PRN sleep 08/17/23 [History Last Taken Unknown] nitrofurantoin monohydrate/macrocrystals 100 mg capsule (Macrobid) 100 mg PO DAILY PRN antibiotic 08/17/23 [History Last Taken Unknown] insulin glargine 100 unit/mL (3 mL) subcutaneous pen (Lantus Solostar U-100 Insulin) 20 unit (0.2 mL) subcut DAILY #15 mL 08/18/23 [Rx Last Taken Unknown] oxycodone 5 mg tablet 5 mg PO Q6H PRN pain 3 days #16 tabs 08/18/23 [Rx Last Taken Unknown] pen needle, diabetic 31 gauge x 1/3 #100 ea 08/18/23 [Rx Last Taken Unknown] Allergy/AdvReac Type Severity Reaction Status Date / Time gabapentin [From Neurontin] Allergy Rash Verified 08/24/23 17:49 Penicillins Allergy Rash Verified 08/24/23 17:49 Sulfa (Sulfonamide Allergy Rash Verified 08/24/23 17:49 Antibiotics) Family History Mother Hypertension Hyperlipidemia Father Heart disease Surgical History H/O: History of appendectomy History of embolic filter insertion History of hysterectomy Hx of cholecystectomy Social History household members: none Smoking Status: Current every day smoker tobacco type: e-cigarettes alcohol intake: former substance use type: marijuana ROS ROS ED ROS Narrative Constitutional: No fever, no chills. Elevated blood sugars above 300. HEENT: No sore throat. No neck pain. No loss of vision. No rhinorrhea. Cardiovascular: No chest pain. No palpitations. No pedal edema. Respiratory: No cough, no shortness of breath. Abdominal: Epigastric abdominal pain. Positive nausea. No vomiting. Genitourinary: No dysuria. No hematuria. Musculoskeletal: No myalgias. No arthralgias. Neurologic: No headaches. No dizziness. No lightheadedness. Skin: No rash. No change in color. Psychiatric: No depression. No anxiety. EXAM Physical Exam Narrative Exam Narrative: Afebrile. Vital signs noted. HEENT: Normocephalic. Atraumatic. PERRL, EOMI. Neck soft and supple. No point tenderness or step off. Cardiovascular: Regular rate and rhythm. No murmurs, rubs, or gallops appreciated. Respiratory: No tachypnea. Lungs clear to auscultation bilaterally. Gastrointestinal: Abdomen soft, mild tenderness in epigastrium with normoactive bowel sounds. No rebound or guarding. Neurological: Awake. Alert. Nonfocal, nonlateralizing. Skin: No rash. Normal color. No pallor. Musculoskeletal: No pedal edema. Full range of motion extremities. Const Vital Signs: 08/24/23 17:49 08/24/23 18:20 Temperature 98.2 F Temperature Source Temporal Pulse Rate 99 Respiratory Rate 16 Respiratory Effort Normal Non-Labored Respiratory Pattern Tachypnea Blood Pressure 140/91 H Blood Pressure Mean 107 Pulse Ox 100 Oxygen Delivery Method Room Air MDM MDM MDM Narrative Medical decision making narrative: I reviewed the patient's prior records. I had actually seen her with the [facility] on her last visit when she was diagnosed with elevated blood sugars. They had come down with IV fluids. She does have a history of chronic pancreatitis for which she sees pain management. In the differential diagnosis is acute on chronic pancreatitis, diabetic hyperglycemia, and diabetic ketoacidosis. I will obtain laboratory work. I do not feel that emergent CT scanning of her abdomen is indicated currently. She was given 1 dose of morphine and ondansetron for pain. I do feel she probably has more exacerbation of her chronic pain. I reviewed her laboratory work from today and she has normal white count of 7.2, hemoglobin normal at 13.3, platelet count normal at 387. Sodium slightly low at 135 but she was bolused normal saline 1 L intravenously. Potassium normal at 4.3 with BUN normal at 17 and creatinine 0.9. Her glucose on her BMP was elevated at 286. It was rechecked after a bolus of IV fluids and is now down to 167. She has a normal anion gap of 10 so I do not have concern for diabetic ketoacidosis, and additionally serum ketones were obtained and are normal. Lipase is low for her at 93, lower than previous values. At this point in time, I feel she can be discharged to follow-up with her primary care provider who is currently managing her sugars. Additionally, she states that she is trying to get a hold of Dr. Daniels with endocrinology. She will follow-up with pain management regarding her chronic pancreatitis. Disposition is discharged home in improved and stable condition. History & Record Review Discussion w/independent historian: Patient Additional record(s) reviewed:: Prior ED visit and Prior labs Lab Data Attestation: I reviewed the patient's lab results. Labs: Laboratory Results - last 24 hr 08/24/23 18:25 WBC 7.2 RBC 4.66 Hgb 13.3 Hct 42.4 MCV 91.0 MCH 28.5 MCHC 31.4 L RDW Std Deviation 46.5 H RDW Coeff of Megan 13.8 Plt Count 387 MPV 8.5 Immature Gran % (Auto) 0.700 Neut % (Auto) 67.3 Lymph % (Auto) 23.2 [place] % (Auto) 4.9 Eos % (Auto) 3.1 Baso % (Auto) 0.8 Absolute Neuts (auto) 4.8 Absolute Lymphs (auto) 1.66 Nucleated RBC % 0 Sodium 135 L Potassium 4.3 Chloride 101 Carbon Dioxide 24.0 Anion Gap 10 BUN 17 Creatinine 0.96 Estim Creat Clear Calc 59.28 Est GFR (MDRD) Af Amer 79 Est GFR (MDRD) Non-Af 66 BUN/Creatinine Ratio 17.7 Glucose 286 H Calcium 9.2 Total Bilirubin 0.20 AST 35 ALT 54 Alkaline Phosphatase 112 Total Protein 8.2 Albumin 3.8 Globulin 4.4 H Albumin/Globulin Ratio 0.9 Lipase 93 H Acetone Level NEGATIVE Discharge Plan Triage Chief Complaint: Hyperglycemia ED Provider: Ludin Momin Dx/Rx/DC Orders Clinical Impression: Hyperglycemia, Chronic pancreatitis Instructions: ED Chronic Pain, ED Diabetic Hyperglycemia Prescriptions: No Action omeprazole 40 mg capsule,delayed release(DR/EC) 40 mg PO BID furosemide 40 MG tablet 40 mg PO DAILY potassium chloride 10 MEQ tablet 20 meq PO TID valacyclovir [Valtrex] 500 MG tablet 500 mg PO DAILY Linzess 290 mcg capsule 290 mcg PO DAILY methenamine hippurate [Hiprex] 1 gram Tablet 1 g PO QHS clonazepam [Klonopin] 0.5 mg Tablet 0.5 mg PO DAILY PRN (Reason: Seizures) venlafaxine [Effexor XR] 150 mg Capsule,Extended Release 24hr 225 mg PO QHS Xarelto 10 mg tablet 10 mg PO QHS ropinirole 0.5 mg Tablet 0.5 mg PO BID lactulose 10 gram/15 mL Solution 15 ml PO BID PRN (Reason: Constipation) cholecalciferol (vitamin D3) 1,250 mcg (50,000 unit) capsule 50,000 unit PO FR lacosamide [Vimpat] 100 mg Tablet 100 mg PO DAILY lacosamide [Vimpat] 200 mg Tablet 200 mg PO QHS aripiprazole 10 mg tablet 10 mg PO DAILY benztropine 0.5 mg tablet 0.5 mg PO BID divalproex 250 mg tablet,delayed release (DR/EC) 250 mg PO Q12H clonidine HCl 0.2 mg tablet 0.2 mg PO DAILY metoprolol succinate 25 mg tablet extended release 24 hr 25 mg PO DAILY mirtazapine 7.5 mg tablet 7.5 mg PO DAILY fenofibrate nanocrystallized 145 mg tablet 145 mg PO QHS hydrochlorothiazide 25 mg tablet 25 mg PO DAILY melatonin 10 mg tablet 10 mg PO QHS PRN (Reason: sleep) nitrofurantoin monohyd/m-cryst [Macrobid] 100 mg capsule 100 mg PO DAILY PRN (Reason: antibiotic) Mag Glycinate 100 mg tablet 100 mg PO DAILY lacosamide 100 mg tablet 200 mg PO QHS aortzrretm-fdxkyucrjwxjk-ejdo 50-325-40 mg tablet 1 - 2 tab PO Q4H PRN (Reason: migraines) oxycodone 5 mg tablet 5 mg PO Q6H PRN (Reason: pain) 3 Days Qty: 16 0RF Rx Instructions: 5-10 mg every 6 hours as needed for pain insulin glargine [Lantus Solostar U-100 Insulin] 100 unit/mL (3 mL) insulin pen 20 unit subcut DAILY Qty: 15 0RF Rx Instructions: start on 08/19/23 (DME) pen needle, diabetic 31 gauge x 1/3 needle See Rx Instructions .Route Qty: 100 0RF Rx Instructions: As directed Primary Care Provider: Meño Pepper Referrals: Meño Pepper, [Primary Care Provider] - Activity Restrictions/Additional Instructions: Follow-up with your primary care provider with a phone call tomorrow regarding your elevated blood sugars. Revisit your diet regarding extra sugars in your electrolyte drink. Disposition Disposition: Home, Self Care
[2023-08-24 18:53] LABS: ALB/GLOB Ratio 0.9 RATIO (0.9-2.4); AST(SGOT) 35 U/L (15-37); Alanine Aminotransfer ALT/SGPT 54 U/L (13-56); Albumin, Serum 3.8 g/dL (3.2-5.0); Alkaline Phosphatase 112 U/L (45-117); Anion Gap 10 (5-15); BUN 17 mg/dL (7-18); BUN/Creat Ratio 17.7 RATIO (10-20); Calcium,Total 9.2 mg/dL (8.5-10.1); Chloride 101 mmol/L (98-107); Creatinine, Serum 0.96 mg/dL (0.55-1.02); EST Glomerular Filtration Rate 66 mL/min (>60); Est Glom Filt Rate - Afr Amer 79 mL/min (>60); Estimated Creatinine Clearance 59.28 ml/min; Globulin 4.4 g/dL (2.2-4.2); Glucose 286 mg/dL (74-106); Lipase 93 U/L (13-75); Potassium 4.3 mmol/L (3.5-5.1); Protein, Total 8.2 g/dL (6.4-8.2); Sodium Level 135 mmol/L (136-145)
[2023-08-24] MEDS: Ondansetron 4 MG/2 ML Vial IV (19:14)
[2023-08-24] MEDS: Morphine 4 MG/ML Syringe IV (19:14)
[2023-08-24 20:19] VITALS: BP 114/62
[2023-08-24 20:25] LABS: Bedside Glucose 167 mg/dL (74-106)
== END 2023-08-24 20:20 | disposition home or self-care (01) ==
PROVIDERS: Emergency Provider Emergency Medicine; PCP Internal Medicine; Referring Provider Emergency Medicine; Visit Provider Emergency Medicine
DX: E11.65 Type 2 diabetes mellitus with hyperglycemia (principal); I11.0 Hypertensive heart disease with heart failure; I50.32 Chronic diastolic (congestive) heart failure; K86.1 Other chronic pancreatitis; G40.909 Epilepsy, unspecified, not intractable, without status epilepticus; Z79.4 Long term (current) use of insulin; E78.5 Hyperlipidemia, unspecified; Z86.73 Personal history of transient ischemic attack (TIA), and cerebral infarction without residual deficits; Z79.899 Other long term (current) drug therapy; F41.9 Anxiety disorder, unspecified; F32.A Depression, unspecified; Z86.718 Personal history of other venous thrombosis and embolism; Z79.01 Long term (current) use of anticoagulants; K21.9 Gastro-esophageal reflux disease without esophagitis; Z90.49 Acquired absence of other specified parts of digestive tract; Z90.710 Acquired absence of both cervix and uterus; F17.290 Nicotine dependence, other tobacco product, uncomplicated
CPT/HCPCS: 36415; 80053; 82009; 82962; 83690; 85025; 96361; 96374; 96375; 99282; J7030; J2405

== ENCOUNTER 2023-08-26 15:34 | Emergency (ER) | payer MEDICARE, SELFPAY ==
[2023-08-26 15:35] VITALS: BP 134/78; PULSE 64; RESP 14; TEMP 36.4; O2SAT 97; BMI 37.5
--- NOTE | 2023-08-26 17:27 | EX.ED.DYSGE1 ---
HPI History of Present Illness Chief Complaint: Chest Other Informant: patient Narrative Narrative: Patient is a 39-year-old female with history of type 2 diabetes mellitus, chronic pancreatitis with pseudocyst presenting for request of her PICC line to be removed. Patient states that she had a Mediport placed through IR today. She also has a PICC line in her right arm. There is no plan on removing the PICC line and her primary care doctor states that he could not remove it so she came to the ER to have it removed. She notes her next infusion is scheduled for 06 September. She had the PICC line placed for poor vascular access. She is not currently receiving any infusions. No other complaints or concerns at this time. No she is little sore on the right side of her neck and her right chest where the port was placed today. [facility] Medical History Anxiety Chronic constipation Chronic diastolic HF (heart failure) Depression DVT (deep venous thrombosis) Epilepsy Factor V Leiden mutation Former smoker GERD (gastroesophageal reflux disease) History of CVA (cerebrovascular accident) History of pulmonary embolus (PE) Hyperlipidemia Hypertension Pancreatitis Presence of IVC filter Seizure disorder Stroke/cerebrovascular accident Substance abuse Vitamin D deficiency Home Medications furosemide 40 mg tablet 40 mg PO DAILY water pill 09/10/16 [History Last Taken 08/17/23] potassium chloride 10 mEq tablet,extended release(part/cryst) 20 meq PO TID supplment 09/10/16 [History Last Taken 08/17/23] valacyclovir 500 mg tablet (Valtrex) 500 mg PO DAILY herpes 10/25/18 [History Last Taken 08/17/23] linaclotide 290 mcg capsule (Linzess) 290 mcg PO DAILY bowels 05/28/21 [History Last Taken 08/17/23] clonazepam 0.5 mg tablet (Klonopin) 0.5 mg PO DAILY PRN Seizures 12/03/21 [History Last Taken 08/16/23] methenamine hippurate 1 gram tablet (Hiprex) 1 g PO QHS bladder infections 12/03/21 [History Last Taken 08/16/23] venlafaxine 150 mg capsule,extended release 24 hr (Effexor XR) 225 mg PO QHS mood 12/03/21 [History Last Taken 08/17/23] rivaroxaban 10 mg tablet (Xarelto) 10 mg PO QHS blood thinner 07/07/22 [History Last Taken 08/16/23] cholecalciferol (vitamin D3) 1,250 mcg (50,000 unit) capsule 50,000 unit PO FR supplement 02/05/23 [History Last Taken 08/12/23] lacosamide 100 mg tablet (Vimpat) 100 mg PO DAILY seizures 02/05/23 [History Last Taken 08/17/23] lacosamide 200 mg tablet (Vimpat) 200 mg PO QHS seizures 02/05/23 [History Last Taken 08/16/23] lactulose 10 gram/15 mL oral solution 15 ml PO BID PRN Constipation 02/05/23 [History Last Taken Unknown] ropinirole 0.5 mg tablet 0.5 mg PO BID restless legs 02/05/23 [History Last Taken 08/17/23] omeprazole 40 mg capsule,delayed release 40 mg PO BID 02/23/23 [History Last Taken 08/17/23] fenofibrate nanocrystallized 145 mg tablet 145 mg PO QHS 05/07/23 [History Last Taken 08/16/23] aripiprazole 10 mg tablet 10 mg PO DAILY MOOD 06/23/23 [History Last Taken 08/17/23] benztropine 0.5 mg tablet 0.5 mg PO BID 06/23/23 [History Last Taken 07/21/23] divalproex 250 mg tablet,delayed release 250 mg PO Q12H 06/23/23 [History Last Taken 08/17/23] clonidine HCl 0.2 mg tablet 0.2 mg PO DAILY 07/22/23 [History Last Taken 08/17/23] metoprolol succinate 25 mg tablet,extended release 24 hr 25 mg PO DAILY 07/22/23 [History Last Taken 08/17/23] mirtazapine 7.5 mg tablet 7.5 mg PO DAILY DEPRESSION 07/22/23 [History Last Taken 08/16/23] hydrochlorothiazide 25 mg tablet 25 mg PO DAILY edema 08/14/23 [History Last Taken Unknown] qzfloyeqbn-erflvfnmaeszd-vjggogzv 50 mg-325 mg-40 mg tablet 1 - 2 tab PO Q4H PRN migraines 08/17/23 [History Last Taken Unknown] lacosamide 100 mg tablet 200 mg PO QHS 08/17/23 [History Last Taken 08/16/23] magnesium glycinate 100 mg tablet (Mag Glycinate) 100 mg PO DAILY 08/17/23 [History Last Taken 08/17/23] melatonin 10 mg tablet 10 mg PO QHS PRN sleep 08/17/23 [History Last Taken Unknown] nitrofurantoin monohydrate/macrocrystals 100 mg capsule (Macrobid) 100 mg PO DAILY PRN antibiotic 08/17/23 [History Last Taken Unknown] insulin glargine 100 unit/mL (3 mL) subcutaneous pen (Lantus Solostar U-100 Insulin) 20 unit (0.2 mL) subcut DAILY #15 mL 08/18/23 [Rx Last Taken Unknown] oxycodone 5 mg tablet 5 mg PO Q6H PRN pain 3 days #16 tabs 08/18/23 [Rx Last Taken Unknown] pen needle, diabetic 31 gauge x 1/3 #100 ea 08/18/23 [Rx Last Taken Unknown] Allergy/AdvReac Type Severity Reaction Status Date / Time gabapentin [From Neurontin] Allergy Rash Verified 08/26/23 15:35 Penicillins Allergy Rash Verified 08/26/23 15:35 Sulfa (Sulfonamide Allergy Rash Verified 08/26/23 15:35 Antibiotics) Family History Mother Hypertension Hyperlipidemia Father Heart disease Surgical History H/O: History of appendectomy History of embolic filter insertion History of hysterectomy Hx of cholecystectomy Social History household members: none Smoking Status: Current every day smoker tobacco type: e-cigarettes alcohol intake: former substance use type: marijuana ROS ROS ED Constitutional Constitutional ED: Denies chills or fever(s) ENT ENT ED: Denies sore throat Cardiovascular Cardiovascular: Reports chest pain Respiratory/Chest Respiratory/Chest: Denies cough or dyspnea Gastrointestinal Gastrointestinal: Denies nausea or vomiting Integumentary Denies rash Neurologic Neurologic: Denies headache(s) Psychiatric Psychiatric: Denies anxiety Hematologic/Lymphatic Hematologic/Lymphatic: Denies easy bleeding or easy bruising EXAM Physical Exam Const Vital Signs: 08/26/23 15:35 Temperature 97.6 F L Temperature Source Temporal Pulse Rate 64 Respiratory Rate 14 Blood Pressure 134/78 H Blood Pressure Mean 96 Pulse Ox 97 Oxygen Delivery Method Room Air Positive well nourished and well developed General Appearance ED: well developed and NAD HEENT Reports moist mucous membranes Neck supple Neck Narrative: normal ROM Chest Wall inspection of chest normal Chest Narrative: Bandage over the right anterior chest wall consistent with a med port placement today. Bandages are clean and dry. No surrounding erythema appreciated. Resp normal respiratory effort Extremity normal to inspection General Extremety ED: Negative for edema or tenderness General Extremity: Negative for edema Neuro oriented x3 Sensorium / Orientation: alert Psych mental status grossly normal Skin no rashes or lesions noted and no wounds Skin Narrative: PICC line in place in the right upper extremity MDM MDM MDM Narrative Medical decision making narrative: Patient evaluated for request remove her PICC line since she had a Mediport placed today. I did speak with our surgeon on-call, Dr. Oconnor, who recommends making sure the med port works by accessing it and flushing it and to get a chest x-ray. He states if it works and she should be able to use its and the PICC line can be pulled. Patient not have infection symptoms so I do not think she needs her PICC line removed cultured. Patient is swollen and nurse cannot palpate the landmarks of the med port and does not feel comfortable accessing it. Does confirm interval placement of chest port and no pneumothorax. Discussed with patient that I cannot ensure that she has adequate vascular access and that her Mediport works without accessing it but she would still like her PICC line pulled. This would perform by nursing staff. Patient given return precautions. Encouraged to follow-up outpatient as scheduled for her infusions. She verbalizes agreement understanding of this plan. Radiography Diagnostic Testing: Clinical Impression(s) from Imaging Studies Chest X-Ray 08/26/23 17:45 IMPRESSION: 1. Interval placement of right internal jugular chest port with tip of the catheter overlying the superior vena cava no pneumothorax. 2. Interval placement of right upper extremity PICC with tip catheter overlying the superior vena cava. 3. No active disease. Electronically Signed: Edwin Bolaños MD at 18:06 EST , Discharge Plan Triage Chief Complaint: Chest Other ED Provider: Licha Simmons Dx/Rx/DC Orders Clinical Impression: PIC line (peripherally inserted central catheter) removal Instructions: Central Venous Access Device Prescriptions: No Action omeprazole 40 mg capsule,delayed release(DR/EC) 40 mg PO BID furosemide 40 MG tablet 40 mg PO DAILY potassium chloride 10 MEQ tablet 20 meq PO TID valacyclovir [Valtrex] 500 MG tablet 500 mg PO DAILY Linzess 290 mcg capsule 290 mcg PO DAILY methenamine hippurate [Hiprex] 1 gram Tablet 1 g PO QHS clonazepam [Klonopin] 0.5 mg Tablet 0.5 mg PO DAILY PRN (Reason: Seizures) venlafaxine [Effexor XR] 150 mg Capsule,Extended Release 24hr 225 mg PO QHS Xarelto 10 mg tablet 10 mg PO QHS ropinirole 0.5 mg Tablet 0.5 mg PO BID lactulose 10 gram/15 mL Solution 15 ml PO BID PRN (Reason: Constipation) cholecalciferol (vitamin D3) 1,250 mcg (50,000 unit) capsule 50,000 unit PO FR lacosamide [Vimpat] 100 mg Tablet 100 mg PO DAILY lacosamide [Vimpat] 200 mg Tablet 200 mg PO QHS aripiprazole 10 mg tablet 10 mg PO DAILY benztropine 0.5 mg tablet 0.5 mg PO BID divalproex 250 mg tablet,delayed release (DR/EC) 250 mg PO Q12H clonidine HCl 0.2 mg tablet 0.2 mg PO DAILY metoprolol succinate 25 mg tablet extended release 24 hr 25 mg PO DAILY mirtazapine 7.5 mg tablet 7.5 mg PO DAILY fenofibrate nanocrystallized 145 mg tablet 145 mg PO QHS hydrochlorothiazide 25 mg tablet 25 mg PO DAILY melatonin 10 mg tablet 10 mg PO QHS PRN (Reason: sleep) nitrofurantoin monohyd/m-cryst [Macrobid] 100 mg capsule 100 mg PO DAILY PRN (Reason: antibiotic) Mag Glycinate 100 mg tablet 100 mg PO DAILY lacosamide 100 mg tablet 200 mg PO QHS amdlbubiwz-fjlslrhlbkiej-mquw 50-325-40 mg tablet 1 - 2 tab PO Q4H PRN (Reason: migraines) oxycodone 5 mg tablet 5 mg PO Q6H PRN (Reason: pain) 3 Days Qty: 16 0RF Rx Instructions: 5-10 mg every 6 hours as needed for pain insulin glargine [Lantus Solostar U-100 Insulin] 100 unit/mL (3 mL) insulin pen 20 unit subcut DAILY Qty: 15 0RF Rx Instructions: start on 08/19/23 (DME) pen needle, diabetic 31 gauge x 1/3 needle See Rx Instructions .Route Qty: 100 0RF Rx Instructions: As directed Primary Care Provider: Meño Pepper Referrals: Meño Pepper, [Primary Care Provider] - Activity Restrictions/Additional Instructions: Please follow-up with your primary care doctor as scheduled. The PICC line was removed today. Your chest x-ray shows appropriate positioning of your Mediport however we cannot guarantee that it is functioning as we access it today. Disposition Disposition: Home, Self Care Discharge Date/Time: 08/26/23 19:15
--- NOTE | 2023-08-26 17:45 | RAD_ITS ---
STUDY: X-RAY CHEST REASON FOR EXAM: Female, 47 years old. port placement TECHNIQUE: Single AP portable view of the chest. COMPARISON: 07/29/2022 FINDINGS: Interval placement right internal jugular chest port with tip of catheter overlying the superior vena cava and no pneumothorax. Interval placement right upper extremity PICC with tip of the catheter overlying the superior vena cava. The lungs are clear and expanded. There is no demonstrated pleural abnormality. Normal size heart. Normal mediastinum and lance. Normal visualized pulmonary arteries. Normal visualized aortic arch and descending thoracic aorta. Normal visualized thoracic spine. Normal visualized ribs, clavicles, and shoulders. There is no demonstrated abnormality of the visualized soft tissue structures of the upper abdomen. RAD/Chest 1 View (Portable) IMPRESSION: 1. Interval placement of right internal jugular chest port with tip of the catheter overlying the superior vena cava no pneumothorax. 2. Interval placement of right upper extremity PICC with tip catheter overlying the superior vena cava. 3. No active disease. Electronically Signed: Edwin Bolaños MD at 18:06 EST ,
--- NOTE | 2023-08-26 18:21 | ED.RN ---
Unable to access port as wound immediately started seeping blood and wound not healed. Unable to feel markers.
--- NOTE | 2023-08-26 19:14 | ED.RN ---
PICC line pulled without incident. Patient tolerated well. No bleeding at site, pressure dressing applied.
== END 2023-08-26 19:15 | disposition home or self-care (01) ==
PROVIDERS: Emergency Provider Emergency Medicine; PCP Internal Medicine; Visit Provider Emergency Medicine
DX: Z45.2 Encounter for adjustment and management of vascular access device (principal); I11.0 Hypertensive heart disease with heart failure; I50.32 Chronic diastolic (congestive) heart failure; G40.909 Epilepsy, unspecified, not intractable, without status epilepticus; E11.9 Type 2 diabetes mellitus without complications; Z79.4 Long term (current) use of insulin; E78.5 Hyperlipidemia, unspecified; Z86.73 Personal history of transient ischemic attack (TIA), and cerebral infarction without residual deficits; F41.9 Anxiety disorder, unspecified; F32.A Depression, unspecified; Z86.718 Personal history of other venous thrombosis and embolism; Z79.01 Long term (current) use of anticoagulants; Z79.899 Other long term (current) drug therapy; K21.9 Gastro-esophageal reflux disease without esophagitis; Z90.49 Acquired absence of other specified parts of digestive tract; Z90.710 Acquired absence of both cervix and uterus; F17.290 Nicotine dependence, other tobacco product, uncomplicated
CPT/HCPCS: 71045; 99282

== ENCOUNTER 2023-09-13 14:01 | Emergency (ER) | payer MEDICARE, SELFPAY ==
[2023-09-13 14:03] VITALS: BP 154/86; PULSE 115; RESP 18; TEMP 35.9; O2SAT 97
[2023-09-13 14:45] VITALS: BMI 40.1
--- NOTE | 2023-09-13 15:17 | EKG12_ITS ---
Test Reason : DYSRHYTHMIA Blood Pressure : / mmHG Vent. Rate : 090 BPM Atrial Rate : 090 BPM P-R Int : 150 ms QRS Dur : 082 ms QT Int : 364 ms P-R-T Axes : 037 005 027 degrees QTc Int : 445 ms Normal sinus rhythm Normal ECG Confirmed by MERRITT CASTILLO MD ([id number]), editor trade journal BECKY ELIAS ([id number]) on 09/20/2023 8:13:23 AM Referred By: STEVEN Confirmed By:MERRITT CASTILLO MD
--- NOTE | 2023-09-13 15:18 | ED.VIS.GI ---
HPI HPI - GI History of Present Illness Chief Complaint: Abd Pain Informant: patient Abdominal Pain/Flank Pain Onset: Today and Yesterday Context: Gradual Onset Timing: Continuous Quality: Aching Location: Epigastric and LUQ Current Severity: Mild Maximum Severity: Moderate Worsened by: Nothing Relieved by: Nothing Nausea/Vomiting/Emesis GI Symptom: Positive for Nausea; Negative for Vomiting Onset: Today and Yesterday Severity: Mild Diarrhea/Melena/Hematochezia GI Symptom: Positive for Diarrhea; Negative for Melena or Hematochezia Onset: Days Severity: Mild Associated Symptoms Associated Symptoms: Negative for Dysuria, Frequency, Hematuria or Urgency Narrative Narrative: 47-year-old female history of prior pancreatitis admitted for that first week of July. Also history of factor V Leiden on the blood thinner Xarelto. Prior stroke. Prior PEs. Prior history of , hysterectomy and appendectomy. Also prior cholecystectomy. Complaining of epigastric abdominal pain since last evening. Nausea without vomiting. Diarrhea for last several days. No fever. Prior similar symptoms: Yes Recent Illness/Hospitalization: Yes PFSH PFS Medical History Anxiety Chronic constipation Chronic diastolic HF (heart failure) Depression DVT (deep venous thrombosis) Epilepsy Factor V Leiden mutation Former smoker GERD (gastroesophageal reflux disease) History of CVA (cerebrovascular accident) History of pulmonary embolus (PE) Hyperlipidemia Hypertension Pancreatitis Presence of IVC filter Seizure disorder Stroke/cerebrovascular accident Substance abuse Vitamin D deficiency Home Medications furosemide 40 mg tablet 40 mg PO DAILY water pill 09/10/16 [History Last Taken 08/17/23] potassium chloride 10 mEq tablet,extended release(part/cryst) 20 meq PO TID supplment 09/10/16 [History Last Taken 08/17/23] valacyclovir 500 mg tablet (Valtrex) 500 mg PO DAILY herpes 10/25/18 [History Last Taken 08/17/23] linaclotide 290 mcg capsule (Linzess) 290 mcg PO DAILY bowels 05/28/21 [History Last Taken 08/17/23] clonazepam 0.5 mg tablet (Klonopin) 0.5 mg PO DAILY PRN Seizures 12/03/21 [History Last Taken 08/16/23] methenamine hippurate 1 gram tablet (Hiprex) 1 g PO QHS bladder infections 12/03/21 [History Last Taken 08/16/23] venlafaxine 150 mg capsule,extended release 24 hr (Effexor XR) 225 mg PO QHS mood 12/03/21 [History Last Taken 08/17/23] rivaroxaban 10 mg tablet (Xarelto) 10 mg PO QHS blood thinner 07/07/22 [History Last Taken 08/16/23] cholecalciferol (vitamin D3) 1,250 mcg (50,000 unit) capsule 50,000 unit PO FR supplement 02/05/23 [History Last Taken 08/12/23] lacosamide 100 mg tablet (Vimpat) 100 mg PO DAILY seizures 02/05/23 [History Last Taken 08/17/23] lacosamide 200 mg tablet (Vimpat) 200 mg PO QHS seizures 02/05/23 [History Last Taken 08/16/23] lactulose 10 gram/15 mL oral solution 15 ml PO BID PRN Constipation 02/05/23 [History Last Taken Unknown] ropinirole 0.5 mg tablet 0.5 mg PO BID restless legs 02/05/23 [History Last Taken 08/17/23] omeprazole 40 mg capsule,delayed release 40 mg PO BID 02/23/23 [History Last Taken 08/17/23] fenofibrate nanocrystallized 145 mg tablet 145 mg PO QHS 05/07/23 [History Last Taken 08/16/23] aripiprazole 10 mg tablet 10 mg PO DAILY MOOD 06/23/23 [History Last Taken 08/17/23] benztropine 0.5 mg tablet 0.5 mg PO BID 06/23/23 [History Last Taken 07/21/23] divalproex 250 mg tablet,delayed release 250 mg PO Q12H 06/23/23 [History Last Taken 08/17/23] clonidine HCl 0.2 mg tablet 0.2 mg PO DAILY 07/22/23 [History Last Taken 08/17/23] metoprolol succinate 25 mg tablet,extended release 24 hr 25 mg PO DAILY 07/22/23 [History Last Taken 08/17/23] mirtazapine 7.5 mg tablet 7.5 mg PO DAILY DEPRESSION 07/22/23 [History Last Taken 08/16/23] hydrochlorothiazide 25 mg tablet 25 mg PO DAILY edema 08/14/23 [History Last Taken Unknown] yteylwqxnn-npxvyceeehpis-xbrvvvkq 50 mg-325 mg-40 mg tablet 1 - 2 tab PO Q4H PRN migraines 08/17/23 [History Last Taken Unknown] lacosamide 100 mg tablet 200 mg PO QHS 08/17/23 [History Last Taken 08/16/23] magnesium glycinate 100 mg tablet (Mag Glycinate) 100 mg PO DAILY 08/17/23 [History Last Taken 08/17/23] melatonin 10 mg tablet 10 mg PO QHS PRN sleep 08/17/23 [History Last Taken Unknown] nitrofurantoin monohydrate/macrocrystals 100 mg capsule (Macrobid) 100 mg PO DAILY PRN antibiotic 08/17/23 [History Last Taken Unknown] insulin glargine 100 unit/mL (3 mL) subcutaneous pen (Lantus Solostar U-100 Insulin) 20 unit (0.2 mL) subcut DAILY #15 mL 08/18/23 [Rx Last Taken Unknown] oxycodone 5 mg tablet 5 mg PO Q6H PRN pain 3 days #16 tabs 08/18/23 [Rx Last Taken Unknown] pen needle, diabetic 31 gauge x 1/3 #100 ea 08/18/23 [Rx Last Taken Unknown] Allergy/AdvReac Type Severity Reaction Status Date / Time gabapentin [From Neurontin] Allergy Rash Verified 09/13/23 14:02 Penicillins Allergy Rash Verified 09/13/23 14:02 Sulfa (Sulfonamide Allergy Rash Verified 09/13/23 14:02 Antibiotics) Family History Mother Hypertension Hyperlipidemia Father Heart disease Surgical History H/O: History of appendectomy History of embolic filter insertion History of hysterectomy Hx of cholecystectomy Social History household members: none Smoking Status: Current every day smoker tobacco type: e-cigarettes alcohol intake: former substance use type: marijuana ROS ROS ED ROS Narrative Nausea. Abdominal pain. Review of Systems ROS Unobtainable: Denies due to encephalopathy Constitutional Constitutional ED: Denies chills or fever(s) ENT ENT ED: Denies ear pain Cardiovascular Cardiovascular: Denies chest pain or palpitations Respiratory/Chest Respiratory/Chest: Denies cough or dyspnea Gastrointestinal Gastrointestinal: Reports abdominal pain and diarrhea; Denies constipation, melena or vomiting Genitourinary Genitourinary ED: Denies dysuria or hematuria Musculoskeletal Musculoskeletal: Denies arthralgias Integumentary Denies abscess or Abrasions Neurologic Neurologic: Denies headache(s) Psychiatric Psychiatric: Denies anxiety Endocrine Endocrinology: Denies polydipsia, polyphagia or polyuria Hematologic/Lymphatic Hematologic/Lymphatic: Denies easy bleeding or easy bruising Allergic/Immunologic Allergic/Immunologic ED: Denies mouth swelling, tongue swelling or urticaria EXAM Physical Exam Narrative Exam Narrative: 47-year-old female vital signs are stable. No distress. HEENT exam dry mucous membranes otherwise unremarkable. Normal speech. Neck nontender. Lungs clear to auscultation bilaterally. Heart tachycardic rate about 115 no murmur. Chest wall nontender. Abdomen soft nondistended normal bowel sounds. No peritoneal signs but epigastric tenderness. Right upper right lower quadrant unremarkable. No hernia or mass. No obstruction. Moving all 4 extremities. Nontender no edema. Back nontender. She is awake and alert. Const Vital Signs: 09/13/23 14:03 Temperature 96.7 F L Temperature Source Temporal Pulse Rate 115 H Respiratory Rate 18 Blood Pressure 154/86 H Blood Pressure Mean 108 Pulse Ox 97 Oxygen Delivery Method Room Air Positive well nourished and well developed; Negative for cachectic, contractures or unkempt General Appearance ED: well developed and NAD; Negative for unkempt, cachectic, contractures or pallor Nutritional Appearance: Negative for cachectic HEENT Reports dry mucous membranes; Denies moist mucous membranes normocephalic and atraumatic; Negative for trauma or tenderness Mouth ED: Yes dry mucous membranes Mouth: dry mucous membranes Eyes PERRL and EOMs intact bilaterally General Eye ED: Negative for pale conjunctiva or scleral icterus Neck no lymphadenopathy, supple and no JVD General: Negative for tenderness Carotids: Negative for other Lymph Lymphatic: Negative for other Resp normal respiratory effort and clear to auscultation bilaterally Effort and Inspection: Negative for respiratory distress Auscultation: Negative for rales, rhonchi or wheezes Cardio regular rhythm, S1 normal heart sound, S2 normal heart sound and no murmurs; Negative for regular rate Rate: tachycardic; Negative for bradycardia GI non-distended and no masses; Negative for non-tender Inspection: Negative for abdominal distention Auscultation: normoactive bowel sounds Palpation: soft and tender; Negative for guarding, rigid or rebound tenderness present Back/Spine no CVA tenderness General Back: Negative for CVA tenderness Cervical Spine: Negative for cervical spine tenderness Thoracic Spine / Upper Back: Negative for thoracic spinal tenderness Lumbar Spine / Lower Back: Negative for lumbar spinal tenderness Coccyx: Negative for other Extremity full ROM General Extremety ED: Negative for edema, tenderness or other findings General Extremity: Negative for edema or other findings Neuro CN's II-XII intact bilaterally and moves all extremities Sensorium / Orientation: alert, oriented to person, oriented to place and oriented to time; Negative for orientation impaired, confused or lethargic Motor Exam: strength 5/5 throughout Psych mental status grossly normal and thought process normal Appearance: Negative for unkempt Attitude: No agitated Mood & Affect: Negative for depressed, anxious or tearful Skin no wounds General Skin Exam: Negative for jaundice or pallor Lesions: no lesions Rashes: no rashes Trauma: Negative for abrasion Nails: Negative for discolored MDM MDM MDM Narrative Medical decision making narrative: 47-year-old female abdominal pain with history of pancreatitis. IV Dilaudid, Zofran for nausea and liter normal saline for hydration. Repeat exam patient doing well at 4:58 PM. Abdomen benign. We went over her normal test results. She will be discharged home with outpatient follow-up. History & Record Review Discussion w/independent historian: Patient Additional record(s) reviewed:: Prior inpatient record, Prior outpatient record, Prior ED visit, Prior labs and No prior records Lab Data Attestation: I reviewed the patient's lab results. Lab results narrative: CBC normal. White count 8. H&H 12.5 and 40. Platelets 290. Electrolytes normal gap of 5 BUN and creatinine 22 and 1.1 Liver enzymes unremarkable. Glucose 144. Lipase normal at 58. Labs: Laboratory Results - last 24 hr 09/13/23 15:52 WBC 8.0 RBC 4.46 Hgb 12.5 Hct 40.9 MCV 91.7 MCH 28.0 MCHC 30.6 L RDW Std Deviation 46.7 H RDW Coeff of Megan 13.9 Plt Count 290 MPV 8.4 Immature Gran % (Auto) 0.800 Neut % (Auto) 67.6 Lymph % (Auto) 21.6 Baxter % (Auto) 7.5 Eos % (Auto) 1.9 Baso % (Auto) 0.6 Absolute Neuts (auto) 5.4 Absolute Lymphs (auto) 1.72 Nucleated RBC % 0 Sodium 139 Potassium 3.9 Chloride 108 H Carbon Dioxide 26.0 Anion Gap 5 BUN 22 H Creatinine 1.12 H Estim Creat Clear Calc 50.81 Est GFR (MDRD) Af Amer 67 Est GFR (MDRD) Non-Af 55 L BUN/Creatinine Ratio 19.6 Glucose 144 H Calcium 9.8 Total Bilirubin 0.10 L AST 24 ALT 57 H Alkaline Phosphatase 107 Total Protein 7.3 Albumin 3.4 Globulin 3.9 Albumin/Globulin Ratio 0.9 Lipase 58 Rhythm Strip Rhythm Strip: Sinus Rhythm Rate: 90 Ectopy: None EKG Initial EKG: Attestation: I personally reviewed and interpreted this EKG as follows: Interpretation: Sinus Rhythm and No Acute Injury Pattern Comments: Normal normal sinus rhythm rate of 90 no acute signs of SD or ischemia. Discharge Plan Triage Chief Complaint: Abd Pain ED Provider: Jacob Rowland Dx/Rx/DC Orders Clinical Impression: Hx of acute pancreatitis, Chronic anticoagulation, Hx of factor V Leiden mutation, Abdominal pain Instructions: Abdominal Pain Prescriptions: No Action omeprazole 40 mg capsule,delayed release(DR/EC) 40 mg PO BID furosemide 40 MG tablet 40 mg PO DAILY potassium chloride 10 MEQ tablet 20 meq PO TID valacyclovir [Valtrex] 500 MG tablet 500 mg PO DAILY Linzess 290 mcg capsule 290 mcg PO DAILY methenamine hippurate [Hiprex] 1 gram Tablet 1 g PO QHS clonazepam [Klonopin] 0.5 mg Tablet 0.5 mg PO DAILY PRN (Reason: Seizures) venlafaxine [Effexor XR] 150 mg Capsule,Extended Release 24hr 225 mg PO QHS Xarelto 10 mg tablet 10 mg PO QHS ropinirole 0.5 mg Tablet 0.5 mg PO BID lactulose 10 gram/15 mL Solution 15 ml PO BID PRN (Reason: Constipation) cholecalciferol (vitamin D3) 1,250 mcg (50,000 unit) capsule 50,000 unit PO FR lacosamide [Vimpat] 100 mg Tablet 100 mg PO DAILY lacosamide [Vimpat] 200 mg Tablet 200 mg PO QHS aripiprazole 10 mg tablet 10 mg PO DAILY benztropine 0.5 mg tablet 0.5 mg PO BID divalproex 250 mg tablet,delayed release (DR/EC) 250 mg PO Q12H clonidine HCl 0.2 mg tablet 0.2 mg PO DAILY metoprolol succinate 25 mg tablet extended release 24 hr 25 mg PO DAILY mirtazapine 7.5 mg tablet 7.5 mg PO DAILY fenofibrate nanocrystallized 145 mg tablet 145 mg PO QHS hydrochlorothiazide 25 mg tablet 25 mg PO DAILY melatonin 10 mg tablet 10 mg PO QHS PRN (Reason: sleep) nitrofurantoin monohyd/m-cryst [Macrobid] 100 mg capsule 100 mg PO DAILY PRN (Reason: antibiotic) Mag Glycinate 100 mg tablet 100 mg PO DAILY lacosamide 100 mg tablet 200 mg PO QHS [id number]-vqfc 50-325-40 mg tablet 1 - 2 tab PO Q4H PRN (Reason: migraines) oxycodone 5 mg tablet 5 mg PO Q6H PRN (Reason: pain) 3 Days Qty: 16 0RF Rx Instructions: 5-10 mg every 6 hours as needed for pain insulin glargine [Lantus Solostar U-100 Insulin] 100 unit/mL (3 mL) insulin pen 20 unit subcut DAILY Qty: 15 0RF Rx Instructions: start on 08/19/23 (DME) pen needle, diabetic 31 gauge x 1/3 needle See Rx Instructions .Route Qty: 100 0RF Rx Instructions: As directed Primary Care Provider: Rin Rivera NP Referrals: Rin Rivera NP, THIRD MATE-C [Primary Care Provider] - 3-5 Days if not improving Activity Restrictions/Additional Instructions: Your labs are normal today. Follow-up with your primary care provider if not improving. Disposition Disposition: Home, Self Care
[2023-09-13] MEDS: HYDROmorphone 1 MG/ML Syringe IV (15:51)
[2023-09-13] MEDS: 0.9% Normal Saline (1000mL) 1,000 ML 999 ML IV (15:51)
[2023-09-13] MEDS: Ondansetron 4 MG/2 ML Vial IV (15:51)
[2023-09-13 15:58] LABS: Absolute Lymphocyte Count 1.72 X10^3/uL (0.83-4.51); Absolute Neutrophil Count 5.4 X10^3/uL (2.0-7.7); Basophil# 0.05 X10^3/uL; Basophil% 0.6 % (0-1); Eosinophil# 0.15 X10^3/uL; Eosinophils% 1.9 % (0-5); Hematocrit 40.9 % (37-47); Hemoglobin 12.5 g/dL (12.0-15.0); Lymphocyte # 1.72 X10^3/ul (0.83-4.51); Lymphocyte % 21.6 % (19-41); Mean Corp Hgb Conc 30.6 g/dL (32-36); Mean Corpuscular Volume 91.7 fL (81-99); Mean Platelet Vol. 8.4 fl (6.2-12.0); Monocyte% 7.5 % (0-10); NRBC Flagged by Analyzer 0 % (0-5); Neutrophil # 5.39 X10^3/uL (2.7-7.7); Neutrophil % 67.6 % (47-70); Platelet Count 290 K/mm3 (150-450); RBC Distribution Width CV 13.9 % (11.6-14.6); RBC Distribution Width SD 46.7 fl (35.1-43.9); Red Blood Count 4.46 M/mm3 (4.2-5.4)
[2023-09-13 16:24] LABS: ALB/GLOB Ratio 0.9 RATIO (0.9-2.4); AST(SGOT) 24 U/L (15-37); Alanine Aminotransfer ALT/SGPT 57 U/L (13-56); Albumin, Serum 3.4 g/dL (3.2-5.0); Alkaline Phosphatase 107 U/L (45-117); Anion Gap 5 (5-15); BUN 22 mg/dL (7-18); BUN/Creat Ratio 19.6 RATIO (10-20); Calcium,Total 9.8 mg/dL (8.5-10.1); Chloride 108 mmol/L (98-107); Creatinine, Serum 1.12 mg/dL (0.55-1.02); EST Glomerular Filtration Rate 55 mL/min (>60); Est Glom Filt Rate - Afr Amer 67 mL/min (>60); Estimated Creatinine Clearance 50.81 ml/min; Globulin 3.9 g/dL (2.2-4.2); Glucose 144 mg/dL (74-106); Lipase 58 U/L (13-75); Potassium 3.9 mmol/L (3.5-5.1); Protein, Total 7.3 g/dL (6.4-8.2); Sodium Level 139 mmol/L (136-145)
[2023-09-13] MEDS: 0.9 % NaCl (Sterile) Posiflush 10 mL IV (17:36)
[2023-09-13 17:41] VITALS: BP 138/68; PULSE 80; RESP 16; O2SAT 98
== END 2023-09-13 17:43 | disposition home or self-care (01) ==
PROVIDERS: Emergency Provider Emergency Medicine; PCP Nurse Practitioner Family; Visit Provider Emergency Medicine
DX: R10.13 Epigastric pain (principal); G40.909 Epilepsy, unspecified, not intractable, without status epilepticus; D68.51 Activated protein C resistance; R11.2 Nausea with vomiting, unspecified; R19.7 Diarrhea, unspecified; Z79.01 Long term (current) use of anticoagulants; Z86.73 Personal history of transient ischemic attack (TIA), and cerebral infarction without residual deficits; Z90.710 Acquired absence of both cervix and uterus; Z90.49 Acquired absence of other specified parts of digestive tract; F41.9 Anxiety disorder, unspecified; F32.A Depression, unspecified; F17.290 Nicotine dependence, other tobacco product, uncomplicated; Z87.19 Personal history of other diseases of the digestive system; R10.12 Left upper quadrant pain
CPT/HCPCS: 36591; 80053; 83690; 85025; 93005; 96361; 96374; 96375; 99284; J7030; A4216; J2405

== ENCOUNTER 2023-10-05 20:42 | Emergency (ER) | payer MEDICARE, SELFPAY ==
[2023-10-05 20:42] VITALS: BP 139/101; PULSE 106; RESP 15; TEMP 36.1; O2SAT 97; BMI 40.1
--- NOTE | 2023-10-05 21:23 | EX.ED.DYSGE1 ---
HPI History of Present Illness Chief Complaint: Abd Pain Informant: patient Onset/Context/Timing Onset: Today Narrative Narrative: Patient presents with upper abdominal pain, nausea, and diarrhea started this afternoon. She states last evening she had some sweats and some mild abdominal pain but it resolved. Symptoms had worse this afternoon. She does have a history of pancreatitis. She is following with a GI doctor at in [place]. [facility] Medical History Anxiety Chronic constipation Chronic diastolic HF (heart failure) Depression DVT (deep venous thrombosis) Epilepsy Factor V Leiden mutation Former smoker GERD (gastroesophageal reflux disease) History of CVA (cerebrovascular accident) History of pulmonary embolus (PE) Hyperlipidemia Hypertension Pancreatitis Presence of IVC filter Seizure disorder Stroke/cerebrovascular accident Substance abuse Vitamin D deficiency Home Medications furosemide 40 mg tablet 40 mg PO DAILY water pill 09/10/16 [History Last Taken 08/17/23] potassium chloride 10 mEq tablet,extended release(part/cryst) 20 meq PO TID supplment 09/10/16 [History Last Taken 08/17/23] valacyclovir 500 mg tablet (Valtrex) 500 mg PO DAILY herpes 10/25/18 [History Last Taken 08/17/23] linaclotide 290 mcg capsule (Linzess) 290 mcg PO DAILY bowels 05/28/21 [History Last Taken 08/17/23] clonazepam 0.5 mg tablet (Klonopin) 0.5 mg PO DAILY PRN Seizures 12/03/21 [History Last Taken 08/16/23] methenamine hippurate 1 gram tablet (Hiprex) 1 g PO QHS bladder infections 12/03/21 [History Last Taken 08/16/23] venlafaxine 150 mg capsule,extended release 24 hr (Effexor XR) 225 mg PO QHS mood 12/03/21 [History Last Taken 08/17/23] rivaroxaban 10 mg tablet (Xarelto) 10 mg PO QHS blood thinner 07/07/22 [History Last Taken 08/16/23] cholecalciferol (vitamin D3) 1,250 mcg (50,000 unit) capsule 50,000 unit PO FR supplement 02/05/23 [History Last Taken 08/12/23] lacosamide 100 mg tablet (Vimpat) 100 mg PO DAILY seizures 02/05/23 [History Last Taken 08/17/23] lacosamide 200 mg tablet (Vimpat) 200 mg PO QHS seizures 02/05/23 [History Last Taken 08/16/23] lactulose 10 gram/15 mL oral solution 15 ml PO BID PRN Constipation 02/05/23 [History Last Taken Unknown] ropinirole 0.5 mg tablet 0.5 mg PO BID restless legs 02/05/23 [History Last Taken 08/17/23] omeprazole 40 mg capsule,delayed release 40 mg PO BID 02/23/23 [History Last Taken 08/17/23] fenofibrate nanocrystallized 145 mg tablet 145 mg PO QHS 05/07/23 [History Last Taken 08/16/23] aripiprazole 10 mg tablet 10 mg PO DAILY MOOD 06/23/23 [History Last Taken 08/17/23] benztropine 0.5 mg tablet 0.5 mg PO BID 06/23/23 [History Last Taken 07/21/23] divalproex 250 mg tablet,delayed release 250 mg PO Q12H 06/23/23 [History Last Taken 08/17/23] clonidine HCl 0.2 mg tablet 0.2 mg PO DAILY 07/22/23 [History Last Taken 08/17/23] metoprolol succinate 25 mg tablet,extended release 24 hr 25 mg PO DAILY 07/22/23 [History Last Taken 08/17/23] mirtazapine 7.5 mg tablet 7.5 mg PO DAILY DEPRESSION 07/22/23 [History Last Taken 08/16/23] hydrochlorothiazide 25 mg tablet 25 mg PO DAILY edema 08/14/23 [History Last Taken Unknown] pfqsrqjxxn-oymjnzhzmnaci-tplqqljt 50 mg-325 mg-40 mg tablet 1 - 2 tab PO Q4H PRN migraines 08/17/23 [History Last Taken Unknown] lacosamide 100 mg tablet 200 mg PO QHS 08/17/23 [History Last Taken 08/16/23] magnesium glycinate 100 mg tablet (Mag Glycinate) 100 mg PO DAILY 08/17/23 [History Last Taken 08/17/23] melatonin 10 mg tablet 10 mg PO QHS PRN sleep 08/17/23 [History Last Taken Unknown] nitrofurantoin monohydrate/macrocrystals 100 mg capsule (Macrobid) 100 mg PO DAILY PRN antibiotic 08/17/23 [History Last Taken Unknown] insulin glargine 100 unit/mL (3 mL) subcutaneous pen (Lantus Solostar U-100 Insulin) 20 unit (0.2 mL) subcut DAILY #15 mL 08/18/23 [Rx Last Taken Unknown] oxycodone 5 mg tablet 5 mg PO Q6H PRN pain 3 days #16 tabs 08/18/23 [Rx Last Taken Unknown] pen needle, diabetic 31 gauge x 09/21 #100 ea 08/18/23 [Rx Last Taken Unknown] ondansetron 4 mg disintegrating tablet 4 mg PO Q8H PRN PRN Nausea #10 tabs 10/05/23 [Rx Last Taken Unknown] oxycodone-acetaminophen 5 mg-325 mg tablet (Percocet) 1 tab PO Q8H PRN pain 3 days #10 tabs 10/05/23 [Rx Last Taken Unknown] Allergy/AdvReac Type Severity Reaction Status Date / Time gabapentin [From Neurontin] Allergy Rash Verified 10/05/23 20:47 Penicillins Allergy Rash Verified 10/05/23 20:47 Sulfa (Sulfonamide Allergy Rash Verified 10/05/23 20:47 Antibiotics) Family History Mother Hypertension Hyperlipidemia Father Heart disease Surgical History H/O: History of appendectomy History of embolic filter insertion History of hysterectomy Hx of cholecystectomy Social History household members: none Smoking Status: Current every day smoker tobacco type: e-cigarettes alcohol intake: former substance use type: marijuana ROS ROS ED Constitutional Constitutional ED: Reports sweats; Denies chills or fever(s) Eyes Eyes: Denies discharge from eye(s) ENT ENT ED: Denies discharge from eye(s), rhinorrhea or sore throat Cardiovascular Cardiovascular: Denies chest pain or palpitations Respiratory/Chest Respiratory/Chest: Denies cough or dyspnea Gastrointestinal Gastrointestinal: Reports abdominal pain, diarrhea and nausea; Denies vomiting Genitourinary Genitourinary ED: Denies dysuria Musculoskeletal Musculoskeletal: Denies back pain or extremity pain Integumentary Denies Abrasions or rash Neurologic Neurologic: Denies headache(s) or weakness Psychiatric Psychiatric: Denies anxiety or depression Allergic/Immunologic Allergic/Immunologic ED: Denies lip swelling or urticaria EXAM Physical Exam Const Vital Signs: 10/05/23 20:42 Temperature 96.9 F L Temperature Source Temporal Pulse Rate 106 H Respiratory Rate 15 Blood Pressure 139/101 H Blood Pressure Mean 113 Pulse Ox 97 Oxygen Delivery Method Room Air Positive well nourished and well developed General Appearance ED: well developed HEENT Reports moist mucous membranes Eyes EOMs intact bilaterally Chest Wall inspection of chest normal and palpation of chest normal Resp normal respiratory effort and clear to auscultation bilaterally Cardio regular rate and regular rhythm GI GI Narrative: Abdomen soft with mild diffuse tenderness. No guarding or rebound. Active bowel sounds are noted. Extremity normal to inspection Neuro oriented x3 and no sensory deficits noted Motor Exam: strength 5/5 throughout Psych mental status grossly normal Skin no rashes or lesions noted MDM MDM MDM Narrative Medical decision making narrative: IV line established. Patient given Dilaudid and Zofran along with IV fluids. Labwork obtained to evaluate for leukocytosis, anemia, and electrolyte derangement. Lab Data Attestation: I reviewed the patient's lab results. Labs: Laboratory Results - last 24 hr 10/05/23 23:05 WBC 9.0 RBC 4.60 Hgb 13.1 Hct 41.4 MCV 90.0 MCH 28.5 MCHC 31.6 L RDW Std Deviation 46.5 H RDW Coeff of Megan 14.3 Plt Count 361 MPV 8.4 Immature Gran % (Auto) 0.400 Neut % (Auto) 69.6 Lymph % (Auto) 21.7 [place] % (Auto) 6.2 Eos % (Auto) 1.4 Baso % (Auto) 0.7 Absolute Neuts (auto) 6.3 Absolute Lymphs (auto) 1.96 Nucleated RBC % 0 Sodium 139 Potassium 3.7 Chloride 105 Carbon Dioxide 27.0 Anion Gap 7 BUN 20 H Creatinine 0.91 Estim Creat Clear Calc 86.68 Est GFR (MDRD) Af Amer 84 Est GFR (MDRD) Non-Af 70 BUN/Creatinine Ratio 21.9 H Glucose 170 H Calcium 9.2 Total Bilirubin 0.20 Direct Bilirubin 0.14 AST 26 ALT 49 Alkaline Phosphatase 87 Total Protein 7.5 Albumin 3.7 Globulin 3.8 Lipase 33 Radiography Diagnostic Testing: Clinical Impression(s) from Imaging Studies Chest X-Ray 10/05/23 21:45 IMPRESSION: Unchanged chest port compared to prior exam. Hazy opacification along the right lower lung, possibly from overlying soft tissues. Consider PA and lateral chest radiograph. Electronically Signed: Chi Arnold MD at 22:28 EST , Treatment and Re-Evaluation :: CBC was normal white count 9.0 with a hemoglobin of 13.1. Chemistry studies reveal a BUN of 20 with a creatinine of 0.91. Glucose is 170. LFTs unremarkable. Lipase is normal at 33. Portable chest x-ray was obtained as nursing staff is having trouble accessing her port. It does not appear to be slightly rotated. Nursing staff did further investigation it appears that it is flipped. This was discussed with patient and she will talk to her doctors at who placed the port. A small peripheral line was able to be obtained for her medications at this time. I did do an [facility] report. Patient has not had any narcotic prescriptions since July. I will write her a very short course of oxycodone and Zofran. She is to follow-up with her pain management doctor as well as her GI doctor at . Discharge Plan Triage Chief Complaint: Abd Pain ED Provider: Lynn Morton Dx/Rx/DC Orders Clinical Impression: Abdominal pain Instructions: ED Abdominal Pain Unkn Cause Fem Prescriptions: New oxycodone-acetaminophen [Percocet] 5-325 mg tablet 1 tab PO Q8H PRN (Reason: pain) 3 Days Qty: 10 0RF ondansetron 4 mg tablet,disintegrating 4 mg PO Q8H PRN PRN (Reason: Nausea) Qty: 10 0RF No Action omeprazole 40 mg capsule,delayed release(DR/EC) 40 mg PO BID furosemide 40 MG tablet 40 mg PO DAILY potassium chloride 10 MEQ tablet 20 meq PO TID valacyclovir [Valtrex] 500 MG tablet 500 mg PO DAILY Linzess 290 mcg capsule 290 mcg PO DAILY methenamine hippurate [Hiprex] 1 gram Tablet 1 g PO QHS clonazepam [Klonopin] 0.5 mg Tablet 0.5 mg PO DAILY PRN (Reason: Seizures) venlafaxine [Effexor XR] 150 mg Capsule,Extended Release 24hr 225 mg PO QHS Xarelto 10 mg tablet 10 mg PO QHS ropinirole 0.5 mg Tablet 0.5 mg PO BID lactulose 10 gram/15 mL Solution 15 ml PO BID PRN (Reason: Constipation) cholecalciferol (vitamin D3) 1,250 mcg (50,000 unit) capsule 50,000 unit PO FR lacosamide [Vimpat] 100 mg Tablet 100 mg PO DAILY lacosamide [Vimpat] 200 mg Tablet 200 mg PO QHS aripiprazole 10 mg tablet 10 mg PO DAILY benztropine 0.5 mg tablet 0.5 mg PO BID divalproex 250 mg tablet,delayed release (DR/EC) 250 mg PO Q12H clonidine HCl 0.2 mg tablet 0.2 mg PO DAILY metoprolol succinate 25 mg tablet extended release 24 hr 25 mg PO DAILY mirtazapine 7.5 mg tablet 7.5 mg PO DAILY fenofibrate nanocrystallized 145 mg tablet 145 mg PO QHS hydrochlorothiazide 25 mg tablet 25 mg PO DAILY melatonin 10 mg tablet 10 mg PO QHS PRN (Reason: sleep) nitrofurantoin monohyd/m-cryst [Macrobid] 100 mg capsule 100 mg PO DAILY PRN (Reason: antibiotic) Mag Glycinate 100 mg tablet 100 mg PO DAILY lacosamide 100 mg tablet 200 mg PO QHS mqeaeyzxaa-gsahihnhetync-lhez 50-325-40 mg tablet 1 - 2 tab PO Q4H PRN (Reason: migraines) oxycodone 5 mg tablet 5 mg PO Q6H PRN (Reason: pain) 3 Days Qty: 16 0RF Rx Instructions: 5-10 mg every 6 hours as needed for pain insulin glargine [Lantus Solostar U-100 Insulin] 100 unit/mL (3 mL) insulin pen 20 unit subcut DAILY Qty: 15 0RF Rx Instructions: start on 08/19/23 (DME) pen needle, diabetic 31 gauge x 1/3 needle See Rx Instructions .Route Qty: 100 0RF Rx Instructions: As directed Primary Care Provider: Rin Rivera NP Referrals: Lorson,Rin [employer]OCIATE, [employer]ATE[facility] [Primary Care Provider] - 1-2 Weeks Activity Restrictions/Additional Instructions: Follow-up with your pain management doctor as well as your GI doctor as scheduled. Disposition Disposition: Home, Self Care Capacity Legal Radio Frequency Technician Reflex Medical hold order details:: IF a medical hold is selected below, a suggested order for a MEDICAL HOLD will reflex upon signing the document. Next of kin: [place] law dictates a PRIORITY LIST for identifying legal decision-maker/legal next of kin in the following order (LNOK): 1st: The patient?s legal guardian, if any 2nd: The patient's spouse (if status is questionable, consult Risk Management) 3rd: The patient?s adult child(jose roberto) (majority, if multiple children) 4th: The patient?s parents 5th: The patient?s adult siblings (majority, if multiple children siblings)
--- NOTE | 2023-10-05 21:45 | RAD_ITS ---
INDICATION: port EXAMINATION/TECHNIQUE: X-RAY - XR Chest 1 View COMPARISON: None. FINDINGS: LINES/DEVICES: Unchanged right chest port with tip at the superior cavoatrial junction.. LUNGS: Increased hazy opacification along the right lower lung possibly from overlying soft tissues. No left lung consolidation. No effusion. No pneumothorax. MEDIASTINUM AND CARDIOVASCULAR STRUCTURES: Unchanged prominent cardiac size, accentuated by projection. BONES AND SOFT TISSUES: Unremarkable. RAD/Chest 1 View (Portable) IMPRESSION: Unchanged chest port compared to prior exam. Hazy opacification along the right lower lung, possibly from overlying soft tissues. Consider PA and lateral chest radiograph. Electronically Signed: Chi Arnold MD at 22:28 EST ,
[2023-10-05] MEDS: Ondansetron 4 MG/2 ML Vial IV (22:35)
[2023-10-05] MEDS: HYDROmorphone 1 MG/ML Syringe 0.5 MG IV (22:35)
[2023-10-05] MEDS: 0.9% Normal Saline (1000mL) 1,000 ML 150 ML IV (22:35)
[2023-10-05 23:13] LABS: Absolute Lymphocyte Count 1.96 X10^3/uL (0.83-4.51); Absolute Neutrophil Count 6.3 X10^3/uL (2.0-7.7); Basophil# 0.06 X10^3/uL; Basophil% 0.7 % (0-1); Eosinophil# 0.13 X10^3/uL; Eosinophils% 1.4 % (0-5); Hematocrit 41.4 % (37-47); Hemoglobin 13.1 g/dL (12.0-15.0); Lymphocyte # 1.96 X10^3/ul (0.83-4.51); Lymphocyte % 21.7 % (19-41); Mean Corp Hgb Conc 31.6 g/dL (32-36); Mean Corpuscular Hgb 28.5 pg (27.0-32.0); Mean Platelet Vol. 8.4 fl (6.2-12.0); Monocyte# 0.56 X10^3/uL; Monocyte% 6.2 % (0-10); NRBC Flagged by Analyzer 0 % (0-5); Neutrophil # 6.27 X10^3/uL (2.7-7.7); Neutrophil % 69.6 % (47-70); Platelet Count 361 K/mm3 (150-450); RBC Distribution Width CV 14.3 % (11.6-14.6); RBC Distribution Width SD 46.5 fl (35.1-43.9)
[2023-10-05 23:30] LABS: AST(SGOT) 26 U/L (15-37); Alanine Aminotransfer ALT/SGPT 49 U/L (13-56); Albumin, Serum 3.7 g/dL (3.2-5.0); Alkaline Phosphatase 87 U/L (45-117); Anion Gap 7 (5-15); BUN 20 mg/dL (7-18); BUN/Creat Ratio 21.9 RATIO (10-20); Bilirubin, Direct 0.14 mg/dL (0.00-0.30); Calcium,Total 9.2 mg/dL (8.5-10.1); Chloride 105 mmol/L (98-107); Creatinine, Serum 0.91 mg/dL (0.55-1.02); EST Glomerular Filtration Rate 70 mL/min (>60); Est Glom Filt Rate - Afr Amer 84 mL/min (>60); Estimated Creatinine Clearance 86.68 ml/min; Globulin 3.8 g/dL (2.2-4.2); Glucose 170 mg/dL (74-106); Lipase 33 U/L (13-75); Potassium 3.7 mmol/L (3.5-5.1); Protein, Total 7.5 g/dL (6.4-8.2); Sodium Level 139 mmol/L (136-145)
[2023-10-05 23:49] VITALS: BP 105/57; PULSE 82; RESP 15; O2SAT 96
[2023-10-05] MEDS: Ondansetron ODT 4 MG Tablet PO (23:55)
[2023-10-05] MEDS: oxyCODONE 5 MG Tablet PO (23:55)
== END 2023-10-06 00:31 | disposition home or self-care (01) ==
PROVIDERS: Emergency Provider Emergency Medicine; PCP Nurse Practitioner Family; Visit Provider Emergency Medicine
DX: R10.9 Unspecified abdominal pain (principal); G40.909 Epilepsy, unspecified, not intractable, without status epilepticus; Z86.73 Personal history of transient ischemic attack (TIA), and cerebral infarction without residual deficits; I10 Essential (primary) hypertension; E78.5 Hyperlipidemia, unspecified; Z79.899 Other long term (current) drug therapy; F32.A Depression, unspecified; F41.9 Anxiety disorder, unspecified; Z79.01 Long term (current) use of anticoagulants; Z86.718 Personal history of other venous thrombosis and embolism; K21.9 Gastro-esophageal reflux disease without esophagitis; Z90.49 Acquired absence of other specified parts of digestive tract; Z90.710 Acquired absence of both cervix and uterus; F17.290 Nicotine dependence, other tobacco product, uncomplicated; R11.0 Nausea
CPT/HCPCS: 71045; 80048; 80076; 83690; 85025; 96361; 96374; 96375; 99283; J7030; A4216; J2405

== ENCOUNTER 2023-10-20 17:20 | Emergency (ER) | payer MEDICARE, SELFPAY ==
[2023-10-20 17:21] VITALS: BP 137/108; PULSE 132; RESP 22; TEMP 36.1; O2SAT 98; BMI 40.4
--- NOTE | 2023-10-20 17:53 | EDS_ITS ---
HPI HPI - GI History of Present Illness Chief Complaint: Abd Pain Informant: patient Narrative Narrative: Patient presents concerning for pancreatitis. This patient has chronic abdominal pain and chronic pancreatitis. She states it might be related to autoimmune disease but they are not sure. She has had gallbladder removed. She does not drink. She also has a med port in due to chronic pain from pancreatitis and other pains. She gets regular infusions up at [facility] in [place]. She gets regular infusions of lidocaine, ketamine, and propofol to manage this. She just had a new med port put in over the last couple days. She states the abdominal pain was a little bit worse on Tuesday. It was better on Tuesday and now it is getting worse again. Not coughing. Not having vomiting but she does have nausea. She does have Phenergan at home for the nausea. Patient also has multiple other medical problems and we did review her med list. She is on Xarelto. [facility] Medical History Anxiety Chronic constipation Chronic diastolic HF (heart failure) Depression DVT (deep venous thrombosis) Epilepsy Factor V Leiden mutation Former smoker GERD (gastroesophageal reflux disease) History of CVA (cerebrovascular accident) History of pulmonary embolus (PE) Hyperlipidemia Hypertension Pancreatitis Presence of IVC filter Seizure disorder Stroke/cerebrovascular accident Substance abuse Vitamin D deficiency Home Medications furosemide 40 mg tablet 40 mg PO DAILY water pill 09/10/16 [History Last Taken 08/17/23] potassium chloride 10 mEq tablet,extended release(part/cryst) 20 meq PO TID supplment 09/10/16 [History Last Taken 08/17/23] valacyclovir 500 mg tablet (Valtrex) 500 mg PO DAILY herpes 10/25/18 [History Last Taken 08/17/23] linaclotide 290 mcg capsule (Linzess) 290 mcg PO DAILY bowels 05/28/21 [History Last Taken 08/17/23] clonazepam 0.5 mg tablet (Klonopin) 0.5 mg PO DAILY PRN Seizures 12/03/21 [History Last Taken 08/16/23] methenamine hippurate 1 gram tablet (Hiprex) 1 g PO QHS bladder infections 12/03/21 [History Last Taken 08/16/23] venlafaxine 150 mg capsule,extended release 24 hr (Effexor XR) 225 mg PO QHS mood 12/03/21 [History Last Taken 08/17/23] rivaroxaban 10 mg tablet (Xarelto) 10 mg PO QHS blood thinner 07/07/22 [History Last Taken 08/16/23] cholecalciferol (vitamin D3) 1,250 mcg (50,000 unit) capsule 50,000 unit PO FR supplement 02/05/23 [History Last Taken 08/12/23] lacosamide 100 mg tablet (Vimpat) 100 mg PO DAILY seizures 02/05/23 [History Last Taken 08/17/23] lacosamide 200 mg tablet (Vimpat) 200 mg PO QHS seizures 02/05/23 [History Last Taken 08/16/23] lactulose 10 gram/15 mL oral solution 15 ml PO BID PRN Constipation 02/05/23 [History Last Taken Unknown] ropinirole 0.5 mg tablet 0.5 mg PO BID restless legs 02/05/23 [History Last Taken 08/17/23] omeprazole 40 mg capsule,delayed release 40 mg PO BID 02/23/23 [History Last Taken 08/17/23] fenofibrate nanocrystallized 145 mg tablet 145 mg PO QHS 05/07/23 [History Last Taken 08/16/23] aripiprazole 10 mg tablet 10 mg PO DAILY MOOD 06/23/23 [History Last Taken 08/17/23] benztropine 0.5 mg tablet 0.5 mg PO BID 06/23/23 [History Last Taken 07/21/23] divalproex 250 mg tablet,delayed release 250 mg PO Q12H 06/23/23 [History Last Taken 08/17/23] clonidine HCl 0.2 mg tablet 0.2 mg PO DAILY 07/22/23 [History Last Taken 08/17/23] metoprolol succinate 25 mg tablet,extended release 24 hr 25 mg PO DAILY 07/22/23 [History Last Taken 08/17/23] mirtazapine 7.5 mg tablet 7.5 mg PO DAILY DEPRESSION 07/22/23 [History Last Taken 08/16/23] hydrochlorothiazide 25 mg tablet 25 mg PO DAILY edema 08/14/23 [History Last Taken Unknown] ytjsisgjgf-xujpnhznvlhvt-nziffeqr 50 mg-325 mg-40 mg tablet 1 - 2 tab PO Q4H PRN migraines 08/17/23 [History Last Taken Unknown] lacosamide 100 mg tablet 200 mg PO QHS 08/17/23 [History Last Taken 08/16/23] magnesium glycinate 100 mg tablet (Mag Glycinate) 100 mg PO DAILY 08/17/23 [History Last Taken 08/17/23] melatonin 10 mg tablet 10 mg PO QHS PRN sleep 08/17/23 [History Last Taken Unknown] nitrofurantoin monohydrate/macrocrystals 100 mg capsule (Macrobid) 100 mg PO DAILY PRN antibiotic 08/17/23 [History Last Taken Unknown] insulin glargine 100 unit/mL (3 mL) subcutaneous pen (Lantus Solostar U-100 Insulin) 20 unit (0.2 mL) subcut DAILY #15 mL 08/18/23 [Rx Last Taken Unknown] oxycodone 5 mg tablet 5 mg PO Q6H PRN pain 3 days #16 tabs 08/18/23 [Rx Last Taken Unknown] pen needle, diabetic 31 gauge x 1/3 #100 ea 08/18/23 [Rx Last Taken Unknown] ondansetron 4 mg disintegrating tablet 4 mg PO Q8H PRN PRN Nausea #10 tabs 10/05/23 [Rx Last Taken Unknown] oxycodone-acetaminophen 5 mg-325 mg tablet (Percocet) 1 tab PO Q8H PRN pain 3 days #10 tabs 10/05/23 [Rx Last Taken Unknown] oxycodone-acetaminophen 5 mg-325 mg tablet 1 tab PO Q6H PRN PRN Pain 3 days #10 TABLETS 10/20/23 [Rx Last Taken Unknown] Allergy/AdvReac Type Severity Reaction Status Date / Time gabapentin [From Neurontin] Allergy Rash Verified 10/20/23 17:21 Penicillins Allergy Rash Verified 10/20/23 17:21 Sulfa (Sulfonamide Allergy Rash Verified 10/20/23 17:21 Antibiotics) Family History Mother Hypertension Hyperlipidemia Father Heart disease Surgical History H/O: History of appendectomy History of embolic filter insertion History of hysterectomy Hx of cholecystectomy Social History household members: none Smoking Status: Current every day smoker tobacco type: e-cigarettes alcohol intake: former substance use type: marijuana ROS ROS ED ROS Narrative A complete review of systems was performed and is negative except as documented in the history of present illness. Some specific details below. Constitutional: No recent fevers or chills. EYE: No visual complaints ENT: No difficulty swallowing. No swelling. No pain. Not having GERD symptoms CV: No chest pain or palpitations. She has minimal soreness at the med port insertion site in the right chest. Respiratory: No dyspnea. No hemoptysis. No difficulty taking breaths. GI: Please see history of present illness. : No frequency dysuria or hematuria. Musculoskeletal: No recent trauma. No new or different pains. Skin: No rash. Nondiaphoretic. Neuro: No weakness or numbness. Endocrine: No polyuria or polydipsia. EXAM Physical Exam Narrative Exam Narrative: CONSTITUTIONAL: Patient is nontoxic in appearance. The patient looks comfortable. HEENT: No notable trauma. Mucous membranes moist. EYES: No conjunctival injection. No proptosis. CARDIOVASCULAR: Regular rate. Regular rhythm. No notable murmur. No JVD. Med port dressing on right upper chest. Steri-Strips are on. No sign of infection. RESPIRATORY: No respiratory distress. Breathing is unlabored. No wheezes. No rhonchi. No rales. No pain with a deep breath. GASTROINTESTINAL: Not distended. Bowel sounds are normal. Minimal epigastric area tenderness. No guarding. No rebound. No palpable mass. No bruit. GENITOURINARY: No tenderness over the bladder. No CVA tenderness. MUSCULOSKELETAL: Atraumatic. NEUROLOGICAL: Patient is alert and appropriate. No focal deficit noted. SKIN: No noted rashes. No diaphoresis. PSYCHIATRIC: Patient is calm. Mood is appropriate. Const Vital Signs: 10/20/23 17:21 10/20/23 20:40 Temperature 97 F L Temperature Source Temporal Pulse Rate 132 H 96 Respiratory Rate 22 H 18 Blood Pressure 137/108 H 136/76 H Blood Pressure Mean 117 96 Pulse Ox 98 95 Oxygen Delivery Method Room Air Room Air MDM MDM MDM Narrative Medical decision making narrative: Patient's med port is not fully healed and we are limited in terms of accessing it. Patient is a very difficult stick this is why she has a med port. Nurse was able to get an IV in the dorsum of her hand but then the patient pulled away and the IV came out. This person is not vomiting. They are not febrile. They are having exacerbation of chronic pain. I will manage her pain and nausea. We will attempt to get labs. But her symptoms and exam do not justify a central line at this time. We were able to draw blood. CBC is normal. Electrolytes show minimal elevation of creatinine. But patient has not been vomiting. She can drink fluids. Glucose is just slightly up. But her blood sugar regularly is below the mid 100s. She has had up to 500 recently. Patient's liver function test look good. Patient's lipase is mildly up. I rechecked the patient. She was initially resting. She got good relief with Dilaudid. She is resting quietly. Her heart rate is down. No vomiting prior to or during her stay here. Patient states she has Zofran and Phenergan at home. She has a follow-up appointment with her infusions early this week. She will follow-up with them regarding her med port to check it for function and use. Normally I would give her some IV fluids here. But we have limited IV access. Patient accidentally pulled quickly and lost the IV that we had. Her symptoms do not justify a central line or an intraosseous line at this time. I discussed with her about pain meds. She states she is not on a pain contract and can get prescriptions. I explained I do not want to hurt her pain contract but she assures me that she gets infusions but is not on any pain contract. We discussed about a clear liquid diet. She is comfortable with this. I stated if she has vomiting, fevers, worsening pain or other symptoms she can return here or see her art sales consultant up at [place]. She would like something else for pain here she is afraid she will develop pain on the way home. Lab Data Attestation: I reviewed the patient's lab results. Labs: Laboratory Results - last 24 hr 10/20/23 20:05 WBC 10.9 RBC 4.79 Hgb 13.8 Hct 42.4 MCV 88.5 MCH 28.8 MCHC 32.5 RDW Std Deviation 46.7 H RDW Coeff of Megan 14.4 Plt Count 319 MPV 9.3 Immature Gran % (Auto) 0.900 Neut % (Auto) 74.6 H Lymph % (Auto) 17.4 L Wood % (Auto) 5.4 Eos % (Auto) 1.0 Baso % (Auto) 0.7 Absolute Neuts (auto) 8.1 H Absolute Lymphs (auto) 1.90 Nucleated RBC % 0 Sodium 134 L Potassium 4.3 Chloride 102 Carbon Dioxide 20.0 L Anion Gap 12 BUN 27 H Creatinine 1.24 H Estim Creat Clear Calc 63.76 Est GFR (MDRD) Af Amer 59 L Est GFR (MDRD) Non-Af 49 L BUN/Creatinine Ratio 21.8 H Glucose 367 H Calcium 9.4 Total Bilirubin 0.20 AST 20 ALT 49 Alkaline Phosphatase 94 Total Protein 8.1 Albumin 3.8 Globulin 4.3 H Albumin/Globulin Ratio 0.9 Lipase 138 H EKG Initial EKG: Comments: My independent interpretation of the patient's EKG shows sinus rhythm with a tachycardic rate at 113. No ventricular ectopy. Mild baseline variation but no sign of acute ST elevation or depression. DE interval, QRS duration and QTc are all normal. Discharge Plan Triage Chief Complaint: Abd Pain ED Provider: Juan Clinton Dx/Rx/DC Orders Clinical Impression: History of pancreatitis, Abdominal pain Instructions: Abdominal Pain, ED Pancreatitis Prescriptions: New oxycodone-acetaminophen [oxycodone-acetaminophen] 5-325 mg tablet 1 tab PO Q6H PRN PRN (Reason: Pain) 3 Days Qty: 10 0RF No Action omeprazole 40 mg capsule,delayed release(DR/EC) 40 mg PO BID furosemide 40 MG tablet 40 mg PO DAILY potassium chloride 10 MEQ tablet 20 meq PO TID valacyclovir [Valtrex] 500 MG tablet 500 mg PO DAILY Linzess 290 mcg capsule 290 mcg PO DAILY methenamine hippurate [Hiprex] 1 gram Tablet 1 g PO QHS clonazepam [Klonopin] 0.5 mg Tablet 0.5 mg PO DAILY PRN (Reason: Seizures) venlafaxine [Effexor XR] 150 mg Capsule,Extended Release 24hr 225 mg PO QHS Xarelto 10 mg tablet 10 mg PO QHS ropinirole 0.5 mg Tablet 0.5 mg PO BID lactulose 10 gram/15 mL Solution 15 ml PO BID PRN (Reason: Constipation) cholecalciferol (vitamin D3) 1,250 mcg (50,000 unit) capsule 50,000 unit PO FR lacosamide [Vimpat] 100 mg Tablet 100 mg PO DAILY lacosamide [Vimpat] 200 mg Tablet 200 mg PO QHS aripiprazole 10 mg tablet 10 mg PO DAILY benztropine 0.5 mg tablet 0.5 mg PO BID divalproex 250 mg tablet,delayed release (DR/EC) 250 mg PO Q12H clonidine HCl 0.2 mg tablet 0.2 mg PO DAILY metoprolol succinate 25 mg tablet extended release 24 hr 25 mg PO DAILY mirtazapine 7.5 mg tablet 7.5 mg PO DAILY fenofibrate nanocrystallized 145 mg tablet 145 mg PO QHS hydrochlorothiazide 25 mg tablet 25 mg PO DAILY melatonin 10 mg tablet 10 mg PO QHS PRN (Reason: sleep) nitrofurantoin monohyd/m-cryst [Macrobid] 100 mg capsule 100 mg PO DAILY PRN (Reason: antibiotic) Mag Glycinate 100 mg tablet 100 mg PO DAILY lacosamide 100 mg tablet 200 mg PO QHS atdjgnkcue-inlugjamhvjrq-objd 50-325-40 mg tablet 1 - 2 tab PO Q4H PRN (Reason: migraines) oxycodone 5 mg tablet 5 mg PO Q6H PRN (Reason: pain) 3 Days Qty: 16 0RF Rx Instructions: 5-10 mg every 6 hours as needed for pain insulin glargine [Lantus Solostar U-100 Insulin] 100 unit/mL (3 mL) insulin pen 20 unit subcut DAILY Qty: 15 0RF Rx Instructions: start on 08/19/23 (DME) pen needle, diabetic 31 gauge x 1/3 needle See Rx Instructions .Route Qty: 100 0RF Rx Instructions: As directed oxycodone-acetaminophen [Percocet] 5-325 mg tablet 1 tab PO Q8H PRN (Reason: pain) 3 Days Qty: 10 0RF ondansetron 4 mg tablet,disintegrating 4 mg PO Q8H PRN PRN (Reason: Nausea) Qty: 10 0RF Primary Care Provider: Rin Rivera NP Referrals: Rin Rivera NP, [facility] [Primary Care Provider] - 3-5 Days Activity Restrictions/Additional Instructions: Follow-up with your art sales consultant in [place]. Disposition Disposition: Home, Self Care
[2023-10-20] MEDS: Ondansetron ODT 4 MG Tablet PO (18:37)
[2023-10-20] MEDS: Morphine 4 MG/ML Syringe IV (18:39)
--- NOTE | 2023-10-20 18:58 | ED.RN ---
LATE ENTRY, THIS NURSE CALLED LAB TO DRAW PT'S LABS AT 1828.
--- NOTE | 2023-10-20 19:24 | ED.RN ---
CALLED LAB TO SEE WHEN PT'S LABS WILL BE DRAWN, SHE'S ON THE FLOOR RIGHT NOW THEN SHE'LL BE OVER
[2023-10-20] MEDS: HYDROmorphone 1 MG/ML Syringe IM (20:12)
[2023-10-20 20:21] LABS: Absolute Neutrophil Count 8.1 X10^3/uL (2.0-7.7); Basophil# 0.08 X10^3/uL; Basophil% 0.7 % (0-1); Eosinophil# 0.11 X10^3/uL; Hematocrit 42.4 % (37-47); Hemoglobin 13.8 g/dL (12.0-15.0); Lymphocyte % 17.4 % (19-41); Mean Corp Hgb Conc 32.5 g/dL (32-36); Mean Corpuscular Hgb 28.8 pg (27.0-32.0); Mean Corpuscular Volume 88.5 fL (81-99); Mean Platelet Vol. 9.3 fl (6.2-12.0); Monocyte# 0.59 X10^3/uL; Monocyte% 5.4 % (0-10); NRBC Flagged by Analyzer 0 % (0-5); Neutrophil # 8.12 X10^3/uL (2.7-7.7); Neutrophil % 74.6 % (47-70); POSITIVE COUNT YES; Platelet Count 319 K/mm3 (150-450); RBC Distribution Width CV 14.4 % (11.6-14.6); RBC Distribution Width SD 46.7 fl (35.1-43.9); Red Blood Count 4.79 M/mm3 (4.2-5.4); White Blood Count 10.9 K/mm3 (4.4-11.0)
[2023-10-20 20:40] VITALS: BP 136/76; PULSE 96; RESP 18; O2SAT 95
[2023-10-20 20:42] LABS: ALB/GLOB Ratio 0.9 RATIO (0.9-2.4); AST(SGOT) 20 U/L (15-37); Alanine Aminotransfer ALT/SGPT 49 U/L (13-56); Albumin, Serum 3.8 g/dL (3.2-5.0); Alkaline Phosphatase 94 U/L (45-117); Anion Gap 12 (5-15); BUN 27 mg/dL (7-18); BUN/Creat Ratio 21.8 RATIO (10-20); Calcium,Total 9.4 mg/dL (8.5-10.1); Chloride 102 mmol/L (98-107); Creatinine, Serum 1.24 mg/dL (0.55-1.02); EST Glomerular Filtration Rate 49 mL/min (>60); Est Glom Filt Rate - Afr Amer 59 mL/min (>60); Estimated Creatinine Clearance 63.76 ml/min; Globulin 4.3 g/dL (2.2-4.2); Glucose 367 mg/dL (74-106); Lipase 138 U/L (13-75); Potassium 4.3 mmol/L (3.5-5.1); Protein, Total 8.1 g/dL (6.4-8.2); Sodium Level 134 mmol/L (136-145)
[2023-10-20] MEDS: HYDROmorphone 0.5 MG/0.5 ML SYRINGE IM (21:23)
[2023-10-20 21:28] VITALS: BP 129/72; PULSE 74; RESP 18; O2SAT 99
== END 2023-10-20 21:29 | disposition home or self-care (01) ==
PROVIDERS: Emergency Provider Emergency Medicine; PCP Nurse Practitioner Family; Visit Provider Emergency Medicine
DX: R10.9 Unspecified abdominal pain (principal); G40.909 Epilepsy, unspecified, not intractable, without status epilepticus; Z86.73 Personal history of transient ischemic attack (TIA), and cerebral infarction without residual deficits; E78.5 Hyperlipidemia, unspecified; I10 Essential (primary) hypertension; Z79.899 Other long term (current) drug therapy; F41.9 Anxiety disorder, unspecified; F32.A Depression, unspecified; Z79.01 Long term (current) use of anticoagulants; Z90.710 Acquired absence of both cervix and uterus; Z90.49 Acquired absence of other specified parts of digestive tract; F17.290 Nicotine dependence, other tobacco product, uncomplicated; Z87.19 Personal history of other diseases of the digestive system
CPT/HCPCS: 36415; 80053; 83690; 85025; 93005; 96372; 96374; 96375; 99282; J7030; A4216; J2405

== ENCOUNTER 2023-10-23 13:25 | Emergency (ER) | payer MEDICARE, SELFPAY ==
[2023-10-23 13:26] VITALS: BP 171/97; PULSE 121; RESP 16; TEMP 36.6; O2SAT 97; BMI 40.7
--- NOTE | 2023-10-23 13:38 | EDS_ITS ---
HPI History of Present Illness Chief Complaint: Abd Pain [facility] Medical History Anxiety Chronic constipation Chronic diastolic HF (heart failure) Depression DVT (deep venous thrombosis) Epilepsy Factor V Leiden mutation Former smoker GERD (gastroesophageal reflux disease) History of CVA (cerebrovascular accident) History of pulmonary embolus (PE) Hyperlipidemia Hypertension Pancreatitis Presence of IVC filter Seizure disorder Stroke/cerebrovascular accident Substance abuse Vitamin D deficiency Home Medications furosemide 40 mg tablet 40 mg PO DAILY water pill 09/10/16 [History Last Taken 08/17/23] potassium chloride 10 mEq tablet,extended release(part/cryst) 20 meq PO TID supplment 09/10/16 [History Last Taken 08/17/23] valacyclovir 500 mg tablet (Valtrex) 500 mg PO DAILY herpes 10/25/18 [History Last Taken 08/17/23] linaclotide 290 mcg capsule (Linzess) 290 mcg PO DAILY bowels 05/28/21 [History Last Taken 08/17/23] clonazepam 0.5 mg tablet (Klonopin) 0.5 mg PO DAILY PRN Seizures 12/03/21 [History Last Taken 08/16/23] methenamine hippurate 1 gram tablet (Hiprex) 1 g PO QHS bladder infections 12/03/21 [History Last Taken 08/16/23] venlafaxine 150 mg capsule,extended release 24 hr (Effexor XR) 225 mg PO QHS mood 12/03/21 [History Last Taken 08/17/23] rivaroxaban 10 mg tablet (Xarelto) 10 mg PO QHS blood thinner 07/07/22 [History Last Taken 08/16/23] cholecalciferol (vitamin D3) 1,250 mcg (50,000 unit) capsule 50,000 unit PO FR supplement 02/05/23 [History Last Taken 08/12/23] lacosamide 100 mg tablet (Vimpat) 100 mg PO DAILY seizures 02/05/23 [History Last Taken 08/17/23] lacosamide 200 mg tablet (Vimpat) 200 mg PO QHS seizures 02/05/23 [History Last Taken 08/16/23] lactulose 10 gram/15 mL oral solution 15 ml PO BID PRN Constipation 02/05/23 [Hi story Last Taken Unknown] ropinirole 0.5 mg tablet 0.5 mg PO BID restless legs 02/05/23 [History Last Taken 08/17/23] omeprazole 40 mg capsule,delayed release 40 mg PO BID 02/23/23 [History Last Taken 08/17/23] fenofibrate nanocrystallized 145 mg tablet 145 mg PO QHS 05/07/23 [History Last Taken 08/16/23] aripiprazole 10 mg tablet 10 mg PO DAILY MOOD 06/23/23 [History Last Taken 08/17/23] benztropine 0.5 mg tablet 0.5 mg PO BID 06/23/23 [History Last Taken 07/21/23] divalproex 250 mg tablet,delayed release 250 mg PO Q12H 06/23/23 [History Last Taken 08/17/23] clonidine HCl 0.2 mg tablet 0.2 mg PO DAILY 07/22/23 [History Last Taken 08/17/23] metoprolol succinate 25 mg tablet,extended release 24 hr 25 mg PO DAILY 07/22/23 [History Last Taken 08/17/23] mirtazapine 7.5 mg tablet 7.5 mg PO DAILY DEPRESSION 07/22/23 [History Last Taken 08/16/23] hydrochlorothiazide 25 mg tablet 25 mg PO DAILY edema 08/14/23 [History Last Taken Unknown] kzzwprtbrm-rrqepmwoehfcf-elxxdmrf 50 mg-325 mg-40 mg tablet 1 - 2 tab PO Q4H PRN migraines 08/17/23 [History Last Taken Unknown] lacosamide 100 mg tablet 200 mg PO QHS 08/17/23 [History Last Taken 08/16/23] magnesium glycinate 100 mg tablet (Mag Glycinate) 100 mg PO DAILY 08/17/23 [History Last Taken 08/17/23] melatonin 10 mg tablet 10 mg PO QHS PRN sleep 08/17/23 [History Last Taken Unknown] nitrofurantoin monohydrate/macrocrystals 100 mg capsule (Macrobid) 100 mg PO DAILY PRN antibiotic 08/17/23 [History Last Taken Unknown] insulin glargine 100 unit/mL (3 mL) subcutaneous pen (Lantus Solostar U-100 Insulin) 20 unit (0.2 mL) subcut DAILY #15 mL 08/18/23 [Rx Last Taken Unknown] oxycodone 5 mg tablet 5 mg PO Q6H PRN pain 3 days #16 tabs 08/18/23 [Rx Last Taken Unknown] pen needle, diabetic 31 gauge x 1/3 #100 ea 08/18/23 [Rx Last Taken Unknown] ondansetron 4 mg disintegrating tablet 4 mg PO Q8H PRN PRN Nausea #10 tabs 10/05/23 [Rx Last Taken Unknown] oxycodone-acetaminophen 5 mg-325 mg tablet (Percocet) 1 tab PO Q8H PRN pain 3 days #10 tabs 10/05/23 [Rx Last Taken Unknown] oxycodone-acetaminophen 5 mg-325 mg tablet 1 tab PO Q6H PRN PRN Pain 3 days #10 TABLETS 10/20/23 [Rx Last Taken Unknown] nitrofurantoin monohydrate/macrocrystals 100 mg capsule (Macrobid) 100 mg PO Q12H 7 days #14 caps 10/23/23 [Rx Last Taken Unknown] promethazine 25 mg tablet 25 mg PO TID PRN nausea and vomiting 7 days #21 tabs 10/23/23 [Rx Last Taken Unknown] Allergy/AdvReac Type Severity Reaction Status Date / Time gabapentin [From Neurontin] Allergy Rash Verified 10/23/23 13:27 Penicillins Allergy Rash Verified 10/23/23 13:27 Sulfa (Sulfonamide Allergy Rash Verified 10/23/23 13:27 Antibiotics) Family History Mother Hypertension Hyperlipidemia Father Heart disease Surgical History H/O: History of appendectomy History of embolic filter insertion History of hysterectomy Hx of cholecystectomy Social History household members: none Smoking Status: Current every day smoker tobacco type: e-cigarettes alcohol intake: former substance use type: marijuana EXAM Physical Exam Const Vital Signs: 10/23/23 13:26 10/23/23 16:00 10/23/23 18:15 Temperature 97.8 F 98.8 F Temperature Source Temporal Oral Pulse Rate 121 H 90 90 Respiratory Rate 16 16 Blood Pressure 171/97 H 110/71 110/60 Blood Pressure Mean 121 84 76 Pulse Ox 97 98 Oxygen Delivery Method Room Air [place] Air [facility] [place] Medical decision making narrative: HISTORY OF PRESENT ILLNESS: 47year old female presents with abdominal pain. Patient reports Abdominal pain, nausea vomiting. Endorsed a history of pancreatitis. She further states she has epigastric abdominal pain. Denies chest pain or shortness of breath. Denies alcohol use. Notes nausea and dry heaving but no vomiting. Last bowel was yesterday. No melena hematochezia noted. REVIEW OF SYSTEMS: All other systems reviewed and are negative except as noted in the history of present illness. At least 10 review of systems reviewed and are negative except as noted in history of present illness. PHYSICAL EXAM: Nursing triage notes reviewed, Vital signs reviewed Constitutional: please see [facility] HENT: MMM Eyes: Pupils equal round and reactive to light, Extraocular muscles intact Neck: No stridor, no JVD, full neck ROM Lungs: Clear to auscultation, No wheezing or rales. No increased work of breathing, no conversational dyspnea, no accessory muscle use, no nasal flaring. No respiratory distress noted Heart: Regular rate and rhythm, No murmurs, No rubs and No gallops, 2+ distal pulses (radial, femoral, posterior tibial) in all extremities Abdomen: Soft, epigastric TTP but no rigidity, rebound or guarding, no obvious peritoneal signs, no palpable pulsatile abdominal masses, no auscultated abdominal bruit : No CVAT Extremities: No edema Neuro: No focal neurological deficits, cranial nerves II through XII intact, 5/5 strength in all extremities. Intact sensation to light touch in all extremities, 2+ reflexes bilateral patella tendons. Normal gait. No ataxia. Skin: No rash or lesions noted MEDICAL DECISION MAKING: Chief Complaint: abdominal pain External records reviewed: Imaging reviewed: CT scan of the abdomen pelvis from July 2023 shows no acute abnormality. Seen in the ED 3 days ago. Had a mildly elevated lipase. Noted relief with Dilaudid. Patient was discharged. Factors affecting care: Pancreatitis, type 2 diabetes, obesity, history of alcohol abuse, Social determinants of health: history of alcohol abuse History obtained from others: Patient's Consults: General surgery (Dr. Bowling) ALL IMAGES (IF OBTAINED) HAVE BEEN PERSONALLY REVIEWED AND INTERPRETED BY MYSELF. EKG with sinus tachycardia, normal axis, normal intervals, no STEMI CBC without leukocytosis, severe anemia, no thrombocytopenia. CMP with mild hyponatremia, no other significant electrolyte abnormalities, no PAM, no hepatobiliary obstruction Lipase is wnl indicating no pancreatic inflammation. Urinalysis consistent with likely UTI will send culture and give prophylactic antibiotics. High-sensitivity troponin is negative, no evidence of myocardial ischemia CT scan abdomen pelvis shows possible pancreatic pseudocyst (7x6cm)however no acute surgical abdominal pathology MDM Narrative: Patient was initially tachycardic otherwise afebrile. Abdominal exam with epigastric pain. No peritoneal signs. I treated the patient with IV fluids, Toradol, IV narcotics, Zofran. I considered the following differential diagnosis: AAA, small bowel obstruction, abdominal perforation, appendicitis, pancreatitis, hepatobiliary pathology (acute cholecystitis), mesenteric ischemia, abnormalities such as pyelonephritis, nephrolithiasis I see nothing that would suggest an acute abdomen at this time. Based on history physical exam, risk factors, I have a low for bowel obstruction, incarcerated hernia, acute pancreatitis, intra-abdominal abscess, perforated viscus, diverticulitis, cholecystitis, appendicitis is very low. There is no evidence of peritonitis sepsis or toxicity at this time. I feel the patient can be managed as an outpatient with follow-up with her primary physician in the next 24 to 48 hours or soon as possible. Instructions have been given for the patient to return to the ED for worsening pain, anorexia, high fevers, intractable vomiting or bleeding. Gave the patient tertiary care follow-up for possible pseudocyst per general surgery recommendations. The patient and/or family, caregivers express understanding. The patient and/or family, caregivers agrees with the plan. Total critical care time today provided was at least 0 minutes. This excludes separately billable procedures. Critical care time (if documented) is secondary to the patient having high probability of clinically significant/life threatening deterioration in the patient's condition which required my urgent intervention. Shared decision making: I will have a discussion with the patient and or visitors regarding risk/benefits of further testing or admission. They will be made aware of of the risk/benefits inherent in this decision they will be given the opportunity to voice understanding. Impression: 1. Abdominal pain 2. Tachycardia 3. UTI 4. History of chronic pancreatitis Disposition: Discharge home Danilo Cooney DO Lab Data Labs: Laboratory Results - last 24 hr 10/23/23 10/23/23 13:54 15:20 WBC 8.0 RBC 4.43 Hgb 12.9 Hct 39.8 MCV 89.8 MCH 29.1 MCHC 32.4 RDW Std Deviation 47.5 H RDW Coeff of Megan 14.5 Plt Count 320 MPV 8.5 Immature Gran % (Auto) 1.000 H Neut % (Auto) 66.5 Lymph % (Auto) 23.0 [place] % (Auto) 6.9 Eos % (Auto) 1.8 Baso % (Auto) 0.8 Absolute Neuts (auto) 5.3 Absolute Lymphs (auto) 1.84 Nucleated RBC % 0 Sodium 132 L Potassium 3.8 Chloride 101 Carbon Dioxide 25.0 Anion Gap 6 BUN 26 H Creatinine 1.13 H Estim Creat Clear Calc 70.33 Est GFR (MDRD) Af Amer 66 Est GFR (MDRD) Non-Af 54 L BUN/Creatinine Ratio 23.0 H Glucose 362 H Calcium 9.7 Total Bilirubin 0.30 AST 22 ALT 51 Alkaline Phosphatase 91 Troponin I High Sens 4 Total Protein 7.8 Albumin 3.8 Globulin 4.0 Albumin/Globulin Ratio 1.0 Lipase 61 Urine Color Yellow Urine Clarity Sl. Cloudy Urine pH 7.0 Ur Specific [place] 1.010 Urine Protein 500 H Urine Glucose (UA) 1000 H Urine Ketones 150 A* Urine Occult Blood 250 H Urine Nitrite Positive H Urine Bilirubin 6 H Urine Urobilinogen 8 H Ur Leukocyte Esterase 500 H Urine RBC 25-50 SEEN Urine WBC 25-50 SEEN Ur Squamous Epith Cells 0-5 SEEN Other Crystals 1+ Urine Bacteria 0 SEEN Urine Mucus 0 SEEN Radiography Diagnostic Testing: Clinical Impression(s) from Imaging Studies Abdomen/Pelvis CT 10/23/23 14:55 IMPRESSION: (NOT LISTED IN ORDER OF SIGNIFICANCE) Fatty liver. Slight enlargement of the hypodense lesions in the pancreas which may be pancreatic pseudocyst. Other findings as above. Electronically Signed: Naga Morton MD at 16:10 EST , Discharge Plan Triage Chief Complaint: Abd Pain ED Provider: Danilo Cooney Dx/Rx/DC Orders Instructions: ED Abdominal Pain Unkn Cause Fem Prescriptions: New promethazine 25 mg tablet 25 mg PO TID PRN (Reason: nausea and vomiting) 7 Days Qty: 21 0RF nitrofurantoin monohyd/m-cryst [Macrobid] 100 mg capsule 100 mg PO Q12H 7 Days Qty: 14 0RF Rx Instructions: must administer with a meal/food No Action omeprazole 40 mg capsule,delayed release(DR/EC) 40 mg PO BID furosemide 40 MG tablet 40 mg PO DAILY potassium chloride 10 MEQ tablet 20 meq PO TID valacyclovir [Valtrex] 500 MG tablet 500 mg PO DAILY Linzess 290 mcg capsule 290 mcg PO DAILY methenamine hippurate [Hiprex] 1 gram Tablet 1 g PO QHS clonazepam [Klonopin] 0.5 mg Tablet 0.5 mg PO DAILY PRN (Reason: Seizures) venlafaxine [Effexor XR] 150 mg Capsule,Extended Release 24hr 225 mg PO QHS Xarelto 10 mg tablet 10 mg PO QHS ropinirole 0.5 mg Tablet 0.5 mg PO BID lactulose 10 gram/15 mL Solution 15 ml PO BID PRN (Reason: Constipation) cholecalciferol (vitamin D3) 1,250 mcg (50,000 unit) capsule 50,000 unit PO FR lacosamide [Vimpat] 100 mg Tablet 100 mg PO DAILY lacosamide [Vimpat] 200 mg Tablet 200 mg PO QHS aripiprazole 10 mg tablet 10 mg PO DAILY benztropine 0.5 mg tablet 0.5 mg PO BID divalproex 250 mg tablet,delayed release (DR/EC) 250 mg PO Q12H clonidine HCl 0.2 mg tablet 0.2 mg PO DAILY metoprolol succinate 25 mg tablet extended release 24 hr 25 mg PO DAILY mirtazapine 7.5 mg tablet 7.5 mg PO DAILY fenofibrate nanocrystallized 145 mg tablet 145 mg PO QHS hydrochlorothiazide 25 mg tablet 25 mg PO DAILY melatonin 10 mg tablet 10 mg PO QHS PRN (Reason: sleep) nitrofurantoin monohyd/m-cryst [Macrobid] 100 mg capsule 100 mg PO DAILY PRN (Reason: antibiotic) Mag Glycinate 100 mg tablet 100 mg PO DAILY lacosamide 100 mg tablet 200 mg PO QHS [id number]-geyh 50-325-40 mg tablet 1 - 2 tab PO Q4H PRN (Reason: migraines) oxycodone 5 mg tablet 5 mg PO Q6H PRN (Reason: pain) 3 Days Qty: 16 0RF Rx Instructions: 5-10 mg every 6 hours as needed for pain insulin glargine [Lantus Solostar U-100 Insulin] 100 unit/mL (3 mL) insulin pen 20 unit subcut DAILY Qty: 15 0RF Rx Instructions: start on 08/19/23 (DME) pen needle, diabetic 31 gauge x 1/3 needle See Rx Instructions .Route Qty: 100 0RF Rx Instructions: As directed oxycodone-acetaminophen [Percocet] 5-325 mg tablet 1 tab PO Q8H PRN (Reason: pain) 3 Days Qty: 10 0RF ondansetron 4 mg tablet,disintegrating 4 mg PO Q8H PRN PRN (Reason: Nausea) Qty: 10 0RF oxycodone-acetaminophen [oxycodone-acetaminophen] 5-325 mg tablet 1 tab PO Q6H PRN PRN (Reason: Pain) 3 Days Qty: 10 0RF Primary Care Provider: Rin Rivera NP Referrals: Rin Rivera NP, [facility] [Primary Care Provider] - Activity Restrictions/Additional Instructions: Thank you for trusting us with your care today! Please take Tylenol (2 pills, 650 mg), ibuprofen (2 pills, 400 mg) every 6 hours as needed for pain and fever control. Please return to the emergency department if your symptoms change or worsen. Please follow with your primary care physician for further outpatient evaluation and management. Please call the following number for outpatient GI follow-up for potential surgical drainage of your pseudocyst [phone] (Dr. Saenz) Disposition Disposition: Home, Self Care Discharge Date/Time: 10/23/23 18:16
[2023-10-23 13:59] LABS: Absolute Lymphocyte Count 1.84 X10^3/uL (0.83-4.51); Absolute Neutrophil Count 5.3 X10^3/uL (2.0-7.7); Basophil# 0.06 X10^3/uL; Basophil% 0.8 % (0-1); Eosinophil# 0.14 X10^3/uL; Eosinophils% 1.8 % (0-5); Hematocrit 39.8 % (37-47); Hemoglobin 12.9 g/dL (12.0-15.0); Lymphocyte # 1.84 X10^3/ul (0.83-4.51); Mean Corp Hgb Conc 32.4 g/dL (32-36); Mean Corpuscular Hgb 29.1 pg (27.0-32.0); Mean Corpuscular Volume 89.8 fL (81-99); Mean Platelet Vol. 8.5 fl (6.2-12.0); Monocyte# 0.55 X10^3/uL; Monocyte% 6.9 % (0-10); NRBC Flagged by Analyzer 0 % (0-5); Neutrophil # 5.33 X10^3/uL (2.7-7.7); Neutrophil % 66.5 % (47-70); Platelet Count 320 K/mm3 (150-450); RBC Distribution Width CV 14.5 % (11.6-14.6); RBC Distribution Width SD 47.5 fl (35.1-43.9); Red Blood Count 4.43 M/mm3 (4.2-5.4)
[2023-10-23] MEDS: 0.9% Normal Saline (1000mL) 1,000 ML 1000 ML IV (14:10)
[2023-10-23] MEDS: Ketorolac 15 MG/ML Vial IV (14:11)
[2023-10-23] MEDS: Ondansetron 4 MG/2 ML Vial IV (14:11)
[2023-10-23 14:16] LABS: AST(SGOT) 22 U/L (15-37); Alanine Aminotransfer ALT/SGPT 51 U/L (13-56); Albumin, Serum 3.8 g/dL (3.2-5.0); Alkaline Phosphatase 91 U/L (45-117); Anion Gap 6 (5-15); BUN 26 mg/dL (7-18); Calcium,Total 9.7 mg/dL (8.5-10.1); Chloride 101 mmol/L (98-107); Creatinine, Serum 1.13 mg/dL (0.55-1.02); EST Glomerular Filtration Rate 54 mL/min (>60); Est Glom Filt Rate - Afr Amer 66 mL/min (>60); Estimated Creatinine Clearance 70.33 ml/min; Glucose 362 mg/dL (74-106); Lipase 61 U/L (13-75); Potassium 3.8 mmol/L (3.5-5.1); Protein, Total 7.8 g/dL (6.4-8.2); Sodium Level 132 mmol/L (136-145)
--- NOTE | 2023-10-23 14:55 | CT_ITS ---
STUDY: CT Abdomen And Pelvis W/ Contrast Injection 10/23/2023 4:06 PM REASON FOR EXAM: Female, 47 years old. ABDOMINAL PAIN epigastric abdominal pain TECHNIQUE: Transaxial images were obtained without oral contrast, and IV 100mL Isovue-370 intravenous contrast. Individualized dose optimization techniques were used for this CT. COMPARISON: 08.11.23 FINDINGS: The visualized lung bases are unremarkable. The visualized portions of the heart are within normal limits. There is decreased attenuation of the liver consistent with steatosis. There are surgical clips in the gallbladder fossa consistent with a prior cholecystectomy. Unremarkable spleen. Atrophy of the pancreas is mild pancreatic ductal dilation. Multiple cystic lesions around the pancreatic head and neck. The largest measures 73 x 61 mm. Unremarkable bilateral adrenal glands. No acute findings of the right kidney. No acute findings of the left kidney. Unremarkable visualized stomach. Unremarkable small intestine. Unremarkable colon. There is non-visualization of the appendix. There are no acute findings of the abdominal aorta. There is an IVC filter in place. Subcentimeter mesenteric lymph nodes. Unremarkable urinary bladder. There is absence of the uterus consistent with a prior hysterectomy. There is an umbilical hernia containing fat. Unremarkable osseous structures. CT/Abdomen/Pelvis W IV Cont ONLY IMPRESSION: (NOT LISTED IN ORDER OF SIGNIFICANCE) Fatty liver. Slight enlargement of the hypodense lesions in the pancreas which may be pancreatic pseudocyst. Other findings as above. Electronically Signed: Naga Morton MD at 16:10 EST ,
[2023-10-23] MEDS: HYDROmorphone 0.5 MG/0.5 ML SYRINGE IV ×2 (15:17→17:55)
[2023-10-23 15:27] LABS: Bacteria 0 SEEN /hpf (None Seen); Mucous, Urine 0 SEEN /hpf (<or=2+)
[2023-10-23 15:32] LABS: Color, Urine Yellow (Yellow); Glucose, Dipstick 1000 mg/dl (Normal); Leukocyte Esterase-Dipstick 500 /ul (Negative); Nitrite-Dipstick Positive (Negative); Occult Blood-Urine 250 /ul (Negative); Protein-Dipstick 500 mg/dl (Negative); Urine Clarity Sl. Cloudy (Clear); Urine Urobilinogen 8 mg/dl (Normal)
[2023-10-23 15:33] LABS: Troponin-I HS 4 pg/mL (3.0-54.0)
[2023-10-23 15:36] LABS: Urine Bilirubin Dipstick 6 mg/dL (Negative)
[2023-10-23 15:37] LABS: Ketone-Dipstick 150 mg/dl (Negative)
[2023-10-23 15:41] LABS: Other Crystals-Urine 1+ /hpf (None Seen); Red Blood Cells-Urine 25-50 SEEN /hpf (0-5); Squamous Epithelial Cells - UA 0-5 SEEN /hpf (5-10); White Blood Cells 25-50 SEEN /hpf (0-5)
[2023-10-23 16:00] VITALS: BP 110/71; PULSE 90; RESP 16; TEMP 37.1; O2SAT 98
[2023-10-23 18:15] VITALS: BP 110/60; PULSE 90
[2023-10-23] MEDS: Nitrofurantoin Macrocrystals 100 MG Capsule PO (18:15)
== END 2023-10-23 18:16 | disposition home or self-care (01) ==
PROVIDERS: Emergency Provider Emergency Medicine; PCP Nurse Practitioner Family; Visit Provider Emergency Medicine
DX: N39.0 Urinary tract infection, site not specified (principal); G40.909 Epilepsy, unspecified, not intractable, without status epilepticus; E11.9 Type 2 diabetes mellitus without complications; Z79.4 Long term (current) use of insulin; F17.200 Nicotine dependence, unspecified, uncomplicated; F12.90 Cannabis use, unspecified, uncomplicated; K21.9 Gastro-esophageal reflux disease without esophagitis; Z86.73 Personal history of transient ischemic attack (TIA), and cerebral infarction without residual deficits; I10 Essential (primary) hypertension; E78.5 Hyperlipidemia, unspecified; Z86.718 Personal history of other venous thrombosis and embolism; Z86.711 Personal history of pulmonary embolism; Z79.01 Long term (current) use of anticoagulants
CPT/HCPCS: 74177; 80053; 81001; 83690; 84484; 85025; 87077; 87086; 87088; 87186; 93005; 96361; 96374; 96375; 99283; J7030; Q9967; A4216; J2405

== ENCOUNTER 2023-10-27 19:13 | Emergency (ER) | payer MEDICARE, SELFPAY ==
[2023-10-27 19:14] VITALS: BP 142/115; PULSE 105; RESP 18; TEMP 36.4; O2SAT 96; BMI 41.3
--- NOTE | 2023-10-27 20:18 | EDS_ITS ---
HPI <AMIE Clark - Last Filed: 10/27/23 22:06> History of Present Illness Chief Complaint: Abd Pain Narrative Narrative: Patient is a 47-year-old female with history of necrotizing pancreatitis, chronic pain, type 2 diabetes history of opiate abuse who presents to the [facility] part with ongoing abdominal pain. Patient receives transfusions every 2 weeks by pain management, patient receives propofol ketamine for this chronic pain. Patient states that she was feeling fine after the infusion, then went home and ate pepperoni rolls and immediately started having pain, this was roughly around 1:30 PM. Patient states the pain is not letting up and she is here for evaluation. Denies any vomiting however does have nausea. Denies any fever or chills. [facility] <AMIE Clark - Last Filed: 10/27/23 22:06> [facility] Medical History Anxiety Chronic constipation Chronic diastolic HF (heart failure) Depression DVT (deep venous thrombosis) Epilepsy Factor V Leiden mutation Former smoker GERD (gastroesophageal reflux disease) History of CVA (cerebrovascular accident) History of pulmonary embolus (PE) Hyperlipidemia Hypertension Pancreatitis Presence of IVC filter Seizure disorder Stroke/cerebrovascular accident Substance abuse Vitamin D deficiency Home Medications furosemide 40 mg tablet 40 mg PO DAILY water pill 09/10/16 [History Last Taken 08/17/23] potassium chloride 10 mEq tablet,extended release(part/cryst) 20 meq PO TID supplment 09/10/16 [History Last Taken 08/17/23] valacyclovir 500 mg tablet (Valtrex) 500 mg PO DAILY herpes 10/25/18 [History Last Taken 08/17/23] linaclotide 290 mcg capsule (Linzess) 290 mcg PO DAILY bowels 05/28/21 [History Last Taken 08/17/23] clonazepam 0.5 mg tablet (Klonopin) 0.5 mg PO DAILY PRN Seizures 12/03/21 [History Last Taken 08/16/23] methenamine hippurate 1 gram tablet (Hiprex) 1 g PO QHS bladder infections 12/03/21 [History Last Taken 08/16/23] venlafaxine 150 mg capsule,extended release 24 hr (Effexor XR) 225 mg PO QHS mood 12/03/21 [History Last Taken 08/17/23] rivaroxaban 10 mg tablet (Xarelto) 10 mg PO QHS blood thinner 07/07/22 [History Last Taken 08/16/23] cholecalciferol (vitamin D3) 1,250 mcg (50,000 unit) capsule 50,000 unit PO FR supplement 02/05/23 [History Last Taken 08/12/23] lacosamide 100 mg tablet (Vimpat) 100 mg PO DAILY seizures 02/05/23 [History Last Taken 08/17/23] lacosamide 200 mg tablet (Vimpat) 200 mg PO QHS seizures 02/05/23 [History Last Taken 08/16/23] lactulose 10 gram/15 mL oral solution 15 ml PO BID PRN Constipation 02/05/23 [History Last Taken Unknown] ropinirole 0.5 mg tablet 0.5 mg PO BID restless legs 02/05/23 [History Last Taken 08/17/23] omeprazole 40 mg capsule,delayed release 40 mg PO BID 02/23/23 [History Last Taken 08/17/23] fenofibrate nanocrystallized 145 mg tablet 145 mg PO QHS 05/07/23 [History Last Taken 08/16/23] aripiprazole 10 mg tablet 10 mg PO DAILY MOOD 06/23/23 [History Last Taken 08/17/23] benztropine 0.5 mg tablet 0.5 mg PO BID 06/23/23 [History Last Taken 07/21/23] divalproex 250 mg tablet,delayed release 250 mg PO Q12H 06/23/23 [History Last Taken 08/17/23] clonidine HCl 0.2 mg tablet 0.2 mg PO DAILY 07/22/23 [History Last Taken 08/17/23] metoprolol succinate 25 mg tablet,extended release 24 hr 25 mg PO DAILY 07/22/23 [History Last Taken 08/17/23] mirtazapine 7.5 mg tablet 7.5 mg PO DAILY DEPRESSION 07/22/23 [History Last Taken 08/16/23] hydrochlorothiazide 25 mg tablet 25 mg PO DAILY edema 08/14/23 [History Last Taken Unknown] sfbdnvnzpk-yasoprfnczmco-obofcaqp 50 mg-325 mg-40 mg tablet 1 - 2 tab PO Q4H PRN migraines 08/17/23 [History Last Taken Unknown] lacosamide 100 mg tablet 200 mg PO QHS 08/17/23 [History Last Taken 08/16/23] magnesium glycinate 100 mg tablet (Mag Glycinate) 100 mg PO DAILY 08/17/23 [History Last Taken 08/17/23] melatonin 10 mg tablet 10 mg PO QHS PRN sleep 08/17/23 [History Last Taken Unknown] nitrofurantoin monohydrate/macrocrystals 100 mg capsule (Macrobid) 100 mg PO DAILY PRN antibiotic 08/17/23 [History Last Taken Unknown] insulin glargine 100 unit/mL (3 mL) subcutaneous pen (Lantus Solostar U-100 Insulin) 20 unit (0.2 mL) subcut DAILY #15 mL 08/18/23 [Rx Last Taken Unknown] oxycodone 5 mg tablet 5 mg PO Q6H PRN pain 3 days #16 tabs 08/18/23 [Rx Last Taken Unknown] pen needle, diabetic 31 gauge x 1/3 #100 ea 08/18/23 [Rx Last Taken Unknown] ondansetron 4 mg disintegrating tablet 4 mg PO Q8H PRN PRN Nausea #10 tabs 10/05/23 [Rx Last Taken Unknown] oxycodone-acetaminophen 5 mg-325 mg tablet (Percocet) 1 tab PO Q8H PRN pain 3 days #10 tabs 10/05/23 [Rx Last Taken Unknown] oxycodone-acetaminophen 5 mg-325 mg tablet 1 tab PO Q6H PRN PRN Pain 3 days #10 TABLETS 10/20/23 [Rx Last Taken Unknown] nitrofurantoin monohydrate/macrocrystals 100 mg capsule (Macrobid) 100 mg PO Q12H 7 days #14 caps 10/23/23 [Rx Last Taken Unknown] promethazine 25 mg tablet 25 mg PO TID PRN nausea and vomiting 7 days #21 tabs 10/23/23 [Rx Last Taken Unknown] Allergy/AdvReac Type Severity Reaction Status Date / Time gabapentin [From Neurontin] Allergy Rash Verified 10/27/23 19:14 Penicillins Allergy Rash Verified 10/27/23 19:14 Sulfa (Sulfonamide Allergy Rash Verified 10/27/23 19:14 Antibiotics) Family History Mother Hypertension Hyperlipidemia Father Heart disease Surgical History H/O: History of appendectomy History of embolic filter insertion History of hysterectomy Hx of cholecystectomy Social History household members: none Smoking Status: Current every day smoker tobacco type: e-cigarettes alcohol intake: former substance use type: marijuana ROS <AMIE Clark - Last Filed: 10/27/23 22:06> ROS ED ROS Narrative Constitutional: Negative for fever, chills, weight loss, weakness Eyes: Negative for vision loss, vision change, double vision ENT: Negative for any sore throat, ear pain, congestion Cardiovascular: Negative for any chest pain, tightness, palpitations Respiratory: Negative for any cough, sputum production, hemoptysis, dyspnea, dyspnea on exertion, orthopnea Gastrointestinal: Negative for any vomiting, diarrhea, constipation, blood in stool, blood in vomit. Positive for abdominal pain, nausea : Negative for any urinary frequency, dysuria, retention, blood in urine Muscle skeletal: Negative for any myalgias, arthralgias, neck pain, back pain Neurological: Negative for any headache, syncope, paresthesias, dizziness Skin: Negative for any rashes, lumps, itching, abrasions, lacerations Psychiatric: Negative for any depression, anxiety, stress, suicidal ideation, homicidal ideation Hematologic: Negative for any easy bruising, excessive bruising, easy bleeding Allergies: Negative for any eczema, hives, rash EXAM <AMIE Clark - Last Filed: 10/27/23 22:06> Physical Exam Narrative Exam Narrative: Vital signs reviewed. Patient is resting comfortably no distress. HEET: Head normocephalic atraumatic, TMs clear bilaterally. Posterior pharynx is clear, moist mucous membranes. Nares clear bilaterally. Neck: Supple with no lymphadenopathy or tenderness. No signs of meningismus. Cardiac: Regular rate and rhythm no murmurs gallops or rubs, equal peripheral pulses bilaterally. Respiratory: Lungs clear to auscultation bilaterally. No chest tenderness. Abdomen: Soft, nondistended. No abdominal bruit or pulsatile masses. No hepatosplenomegaly. Slight tenderness to the epigastric area, left upper abdomen Extremities: No peripheral edema, no signs of gross trauma or deformity. Active full range of motion of all extremities. Neuro: Cranial nerves II through XII intact, no focal neurological deficits. Skin: Clean dry and intact with no rash, purpura, petechiae, vesicles or pustules. Backs/flank: No CVA tenderness, no midline spinal tenderness, no deformity. Psych: Normal mood and affect. No SI, HI or acute psychosis. Const Vital Signs: 10/27/23 19:14 Temperature 97.5 F L Temperature Source Temporal Pulse Rate 105 H Respiratory Rate 18 Blood Pressure 142/115 H Blood Pressure Mean 124 Pulse Ox 96 Oxygen Delivery Method Room Air Positive well nourished and well developed General Appearance ED: well developed <Dr. Dada Sherwood DO - Last Filed: 10/27/23 22:14> Physical Exam Const Vital Signs: 10/27/23 19:14 Temperature 97.5 F L Temperature Source Temporal Pulse Rate 105 H Respiratory Rate 18 Blood Pressure 142/115 H Blood Pressure Mean 124 Pulse Ox 96 Oxygen Delivery Method Room Air MDM <AMIE Clark - Last Filed: 10/27/23 22:06> MDM Lab Data Labs: Laboratory Results - last 24 hr 10/27/23 20:41 WBC 11.5 H RBC 4.22 Hgb 12.2 Hct 37.5 MCV 88.9 MCH 28.9 MCHC 32.5 RDW Std Deviation 46.5 H RDW Coeff of Megan 14.5 Plt Count 343 MPV 8.7 Immature Gran % (Auto) 0.600 Neut % (Auto) 75.9 H Lymph % (Auto) 15.8 L [place] % (Auto) 5.7 Eos % (Auto) 1.4 Baso % (Auto) 0.6 Absolute Neuts (auto) 8.7 H Absolute Lymphs (auto) 1.81 Nucleated RBC % 0 Sodium 135 L Potassium 3.6 Chloride 101 Carbon Dioxide 28.0 Anion Gap 6 BUN 20 H Creatinine 0.94 Estim Creat Clear Calc 85.17 Est GFR (MDRD) Af Amer 81 Est GFR (MDRD) Non-Af 67 BUN/Creatinine Ratio 21.3 H Glucose 254 H Calcium 8.7 Total Bilirubin 0.20 AST 26 ALT 59 H Alkaline Phosphatase 86 Total Protein 7.3 Albumin 3.7 Globulin 3.6 Albumin/Globulin Ratio 1.0 Lipase 226 H Treatment and Re-Evaluation :: Patient appears to be no obvious distress, vital signs are stable. Present to the emerged part with ongoing pain to the epigastric area, left abdomen. Patient has a long history of chronic pain. Does say on her chart that the patient does have a care plan. Patient today had infusions of her port with propofol and ketamine. Patient is in pain management. Differential diagnosis includes acute on chronic pancreatitis, bowel obstruction, pain seeking behavior, gastritis. Patient will receive some basic laboratory values looking for any transaminitis, elevated lipase. Patient was given IV fluids, Zofran, as well as IM Bentyl. I did look at the patient's past charting, patient has a known history of asking for narcotics, patient does have a history of narcotic abuse. Patient CBC shows slight leukocytosis with a white blood count 11.5, patient's sodium is 135, glucose 254, AST slightly elevated 59, patient's lipase is 226, on 2 4 it was 61. Patient states that the pain is getting severe, patient be given IV Dilaudid. Patient states that she is too sick to go home, states that 200 is too high for her. I will reach out to the hospitalist. Will be diffic ult secondary to the patient having all of her GI care at [facility]. I spoke with hospitalist, he is not comfortable admitting the patient here secondary to her history and medication regimen. Spoke with the patient, the patient need to be transferred to [facility], the patient thought about this, she states that she would like 1 dose of IV pain medicine here and then she will follow-up tomorrow at [facility]. At this time, I do believe this is a appropriate plan. Patient instructed return for any worsening symptoms. Patient will be given IV Dilaudid, then he will discharge home. <Dr. Dada Sherwood, DO - Last Filed: 10/27/23 22:14> [facility] Narrative Medical decision making narrative: Patient appears to be no obvious distress, vital signs are stable. Present to the emerged part with ongoing pain to the epigastric area, left abdomen. Patient has a long history of chronic pain. Does say on her chart that the patient does have a care plan. Patient today had infusions of her port with propofol and ketamine. Patient is in pain management. Differential diagnosis includes acute on chronic pancreatitis, bowel obstruction, pain seeking behavior, gastritis. Patient will receive some basic laboratory values looking for any transaminitis, elevated lipase. Patient was given IV fluids, Zofran, as well as IM Bentyl. I did look at the patient's past charting, patient has a known history of asking for narcotics, patient does have a history of narcotic abuse. Patient CBC shows slight leukocytosis with a white blood count 11.5, patient's sodium is 135, glucose 254, AST slightly elevated 59, patient's lipase is 226, on 2 4 it was 61. Patient states that the pain is getting severe, patient be given IV Dilaudid. Patient states that she is too sick to go home, states that 200 is too high for her. I will reach out to the hospitalist. Will be difficult secondary to the patient having all of her GI care at [facility]. I spoke with hospitalist, he is not comfortable admitting the patient here secondary to her history and medication regimen. Spoke with the patient, the patient need to be transferred to [facility], the patient thought about this, she states that she would like 1 dose of IV pain medicine here and then she will follow-up tomorrow at [facility]. At this time, I do believe this is a appropriate plan. Patient instructed return for any worsening symptoms. Patient will be given IV Dilaudid, then he will discharge home. This patient was seen with a PA/TECHNICAL SALES SUPPORT SPECIALIST Individually assessed they patient including history and physical. I have reviewed everything on the chart that is available and agree with the documentation provided by the PA/TECHNICAL SALES SUPPORT SPECIALIST including discussion about the assessment, treatment plan, discussion, and return precautions. 47-year-old female presenting with acute exacerbation of chronic abdominal pain. She has chronic pancreatitis. She just had infusions today with propofol, ketamine, lidocaine and states she went home and he pizza rolls. She does state that this is an out of the ordinary for her. There is a suppose a care plan for the patient although I was able to find this. We did discuss this when the patient arrived and we talked about treating her pain with nonnarcotic pain medications is much as possible until the confines are vital for some pain. She was treated with IV fluids, Zofran, Bentyl, GI cocktail. Blood work is obtained and ultimately unremarkable with exception of a lipase of 226 which is not consistent necessarily with an acute pancreatitis. Her numbers are not really that high throughout the past. She requested to be admitted to the hospital because of the pancreatic lipase number however after speaking with the hospitalist he was recommending transfer to where she gets her GI care and her pain management care and after discussing this with her I did discuss that she may end up on a waiting list for a couple of days in order to get to this facility and does not really a concrete reason that she needs to be admitted other than chronic pain. We also discussed that this could have been exacerbated by eating pizza rolls tonight and at this point the patient feels she does not want to be transferred and is willing to try to go home. She requests a dose of pain medicine here in the ED and she is given 1 dose of Dilaudid. She states that she will call her pain management physician and her GI doctor tomorrow to set up an appointment. We discussed return precautions. She is discharged home in stable condition. Lab Data Labs: Laboratory Results - last 24 hr 10/27/23 20:41 WBC 11.5 H RBC 4.22 Hgb 12.2 Hct 37.5 MCV 88.9 MCH 28.9 MCHC 32.5 RDW Std Deviation 46.5 H RDW Coeff of Megan 14.5 Plt Count 343 MPV 8.7 Immature Gran % (Auto) 0.600 Neut % (Auto) 75.9 H Lymph % (Auto) 15.8 L [place] % (Auto) 5.7 Eos % (Auto) 1.4 Baso % (Auto) 0.6 Absolute Neuts (auto) 8.7 H Absolute Lymphs (auto) 1.81 Nucleated RBC % 0 Sodium 135 L Potassium 3.6 Chloride 101 Carbon Dioxide 28.0 Anion Gap 6 BUN 20 H Creatinine 0.94 Estim Creat Clear Calc 85.17 Est GFR (MDRD) Af Amer 81 Est GFR (MDRD) Non-Af 67 BUN/Creatinine Ratio 21.3 H Glucose 254 H Calcium 8.7 Total Bilirubin 0.20 AST 26 ALT 59 H Alkaline Phosphatase 86 Total Protein 7.3 Albumin 3.7 Globulin 3.6 Albumin/Globulin Ratio 1.0 Lipase 226 H Discharge Plan Triage Chief Complaint: Abd Pain ED Midlevel Provider: Jg Medley ED Provider: Dada Sherwood Dx/Rx/DC Orders Clinical Impression: Chronic pancreatitis, Abdominal pain Instructions: Abdominal Pain Prescriptions: No Action omeprazole 40 mg capsule,delayed release(DR/EC) 40 mg PO BID furosemide 40 MG tablet 40 mg PO DAILY potassium chloride 10 MEQ tablet 20 meq PO TID valacyclovir [Valtrex] 500 MG tablet 500 mg PO DAILY Linzess 290 mcg capsule 290 mcg PO DAILY methenamine hippurate [Hiprex] 1 gram Tablet 1 g PO QHS clonazepam [Klonopin] 0.5 mg Tablet 0.5 mg PO DAILY PRN (Reason: Seizures) venlafaxine [Effexor XR] 150 mg Capsule,Extended Release 24hr 225 mg PO QHS Xarelto 10 mg tablet 10 mg PO QHS ropinirole 0.5 mg Tablet 0.5 mg PO BID lactulose 10 gram/15 mL Solution 15 ml PO BID PRN (Reason: Constipation) cholecalciferol (vitamin D3) 1,250 mcg (50,000 unit) capsule 50,000 unit PO FR lacosamide [Vimpat] 100 mg Tablet 100 mg PO DAILY lacosamide [Vimpat] 200 mg Tablet 200 mg PO QHS aripiprazole 10 mg tablet 10 mg PO DAILY benztropine 0.5 mg tablet 0.5 mg PO BID divalproex 250 mg tablet,delayed release (DR/EC) 250 mg PO Q12H clonidine HCl 0.2 mg tablet 0.2 mg PO DAILY metoprolol succinate 25 mg tablet extended release 24 hr 25 mg PO DAILY mirtazapine 7.5 mg tablet 7.5 mg PO DAILY promethazine 25 mg tablet 25 mg PO TID PRN (Reason: nausea and vomiting) 7 Days Qty: 21 0RF nitrofurantoin monohyd/m-cryst [Macrobid] 100 mg capsule 100 mg PO Q12H 7 Days Qty: 14 0RF Rx Instructions: must administer with a meal/food fenofibrate nanocrystallized 145 mg tablet 145 mg PO QHS hydrochlorothiazide 25 mg tablet 25 mg PO DAILY melatonin 10 mg tablet 10 mg PO QHS PRN (Reason: sleep) nitrofurantoin monohyd/m-cryst [Macrobid] 100 mg capsule 100 mg PO DAILY PRN (Reason: antibiotic) Mag Glycinate 100 mg tablet 100 mg PO DAILY lacosamide 100 mg tablet 200 mg PO QHS [id number]-[id number] 50-325-40 mg tablet 1 - 2 tab PO Q4H PRN (Reason: migraines) oxycodone 5 mg tablet 5 mg PO Q6H PRN (Reason: pain) 3 Days Qty: 16 0RF Rx Instructions: 5-10 mg every 6 hours as needed for pain insulin glargine [Lantus Solostar U-100 Insulin] 100 unit/mL (3 mL) insulin pen 20 unit subcut DAILY Qty: 15 0RF Rx Instructions: start on 08/19/23 (DME) pen needle, diabetic 31 gauge x 1/3 needle See Rx Instructions .Route Qty: 100 0RF Rx Instructions: As directed oxycodone-acetaminophen [Percocet] 5-325 mg tablet 1 tab PO Q8H PRN (Reason: pain) 3 Days Qty: 10 0RF ondansetron 4 mg tablet,disintegrating 4 mg PO Q8H PRN PRN (Reason: Nausea) Qty: 10 0RF oxycodone-acetaminophen [oxycodone-acetaminophen] 5-325 mg tablet 1 tab PO Q6H PRN PRN (Reason: Pain) 3 Days Qty: 10 0RF Primary Care Provider: Rin Rivera NP Referrals: Rin Rivera NP, TECHNICAL SALES SUPPORT SPECIALIST-C [Primary Care Provider] - Activity Restrictions/Additional Instructions: Please follow-up outpatient. Disposition Disposition: Home, Self Care
[2023-10-27] MEDS: Mag Hydrox/Al Hydrox/Simeth 30 ML UDC PO (20:48)
[2023-10-27] MEDS: 0.9% Normal Saline (1000mL) 1,000 ML 1000 ML IV (20:48)
[2023-10-27] MEDS: Ondansetron 4 MG/2 ML Vial IV (20:49)
[2023-10-27] MEDS: Dicyclomine 20 MG/2 ML Vial IM (20:49)
[2023-10-27 20:51] LABS: Absolute Lymphocyte Count 1.81 X10^3/uL (0.83-4.51); Absolute Neutrophil Count 8.7 X10^3/uL (2.0-7.7); Basophil# 0.07 X10^3/uL; Basophil% 0.6 % (0-1); Eosinophil# 0.16 X10^3/uL; Eosinophils% 1.4 % (0-5); Hematocrit 37.5 % (37-47); Hemoglobin 12.2 g/dL (12.0-15.0); Lymphocyte # 1.81 X10^3/ul (0.83-4.51); Lymphocyte % 15.8 % (19-41); Mean Corp Hgb Conc 32.5 g/dL (32-36); Mean Corpuscular Hgb 28.9 pg (27.0-32.0); Mean Corpuscular Volume 88.9 fL (81-99); Mean Platelet Vol. 8.7 fl (6.2-12.0); Monocyte# 0.65 X10^3/uL; Monocyte% 5.7 % (0-10); NRBC Flagged by Analyzer 0 % (0-5); Neutrophil # 8.71 X10^3/uL (2.7-7.7); Neutrophil % 75.9 % (47-70); Platelet Count 343 K/mm3 (150-450); RBC Distribution Width CV 14.5 % (11.6-14.6); RBC Distribution Width SD 46.5 fl (35.1-43.9); Red Blood Count 4.22 M/mm3 (4.2-5.4); White Blood Count 11.5 K/mm3 (4.4-11.0)
[2023-10-27 21:07] LABS: AST(SGOT) 26 U/L (15-37); Alanine Aminotransfer ALT/SGPT 59 U/L (13-56); Albumin, Serum 3.7 g/dL (3.2-5.0); Alkaline Phosphatase 86 U/L (45-117); Anion Gap 6 (5-15); BUN 20 mg/dL (7-18); BUN/Creat Ratio 21.3 RATIO (10-20); Calcium,Total 8.7 mg/dL (8.5-10.1); Chloride 101 mmol/L (98-107); Creatinine, Serum 0.94 mg/dL (0.55-1.02); EST Glomerular Filtration Rate 67 mL/min (>60); Est Glom Filt Rate - Afr Amer 81 mL/min (>60); Estimated Creatinine Clearance 85.17 ml/min; Globulin 3.6 g/dL (2.2-4.2); Glucose 254 mg/dL (74-106); Lipase 226 U/L (13-75); Potassium 3.6 mmol/L (3.5-5.1); Protein, Total 7.3 g/dL (6.4-8.2); Sodium Level 135 mmol/L (136-145)
[2023-10-27] MEDS: HYDROmorphone 1 MG/ML Syringe IV (22:20)
[2023-10-27 22:25] VITALS: BP 149/77; PULSE 81; RESP 16; O2SAT 97
== END 2023-10-27 22:25 | disposition home or self-care (01) ==
PROVIDERS: Nurse Practitioner; Emergency Provider Student in an Organized Health Care Education/Training Program; PCP Nurse Practitioner Family; Visit Provider Student in an Organized Health Care Education/Training Program
DX: R10.9 Unspecified abdominal pain (principal); I11.0 Hypertensive heart disease with heart failure; I50.32 Chronic diastolic (congestive) heart failure; K86.1 Other chronic pancreatitis; G40.909 Epilepsy, unspecified, not intractable, without status epilepticus; E11.9 Type 2 diabetes mellitus without complications; Z79.4 Long term (current) use of insulin; R11.0 Nausea; Z86.73 Personal history of transient ischemic attack (TIA), and cerebral infarction without residual deficits; E78.5 Hyperlipidemia, unspecified; Z79.899 Other long term (current) drug therapy; Z79.01 Long term (current) use of anticoagulants; Z86.718 Personal history of other venous thrombosis and embolism; E55.9 Vitamin D deficiency, unspecified; K21.9 Gastro-esophageal reflux disease without esophagitis; F32.A Depression, unspecified; Z90.49 Acquired absence of other specified parts of digestive tract; Z90.710 Acquired absence of both cervix and uterus; F17.290 Nicotine dependence, other tobacco product, uncomplicated
CPT/HCPCS: 36591; 80053; 83690; 85025; 96361; 96372; 96374; 96375; 99282; J7030; A4216; J2405

== ENCOUNTER 2023-12-15 14:36 | Emergency (ER) | payer MEDICARE, SELFPAY ==
[2023-12-15 14:37] VITALS: BP 139/104; PULSE 106; RESP 16; TEMP 36.6; O2SAT 99; BMI 40.5
--- NOTE | 2023-12-15 14:58 | EX.ED.DYSGE1 ---
HPI <BENIGNO Donis - Last Filed: 12/15/23 17:54> History of Present Illness Chief Complaint: Abd Pain Narrative Narrative: 47-year-old female with past medical history of type 2 diabetes, necrotizing pancreatitis with chronic pain presents with upper abdominal pain that started around 10 AM. At 9 AM she had hashbrowns and part of a hamburger and states when she laid down she developed abdominal pain about an hour later with nausea but no vomiting. She has had normal bladder and bowel movements. On 10/27/2023 she was transferred to and had a pancreatic stent placed. On December 06 she followed up to have the stent removed via endoscopy. During the follow-up procedure they found portal vein thrombosis. She was already on Xarelto but hematology switched her to Lovenox shots twice daily. She states she her postop pain was minimal until these new symptoms today. She has a history of cholecystectomy, appendectomy, and hysterectomy. [facility] [place] <BENIGNO Donis - Last Filed: 12/15/23 17:54> [facility] Medical History Anxiety Chronic constipation Chronic diastolic HF (heart failure) Depression DVT (deep venous thrombosis) Epilepsy Factor V Leiden mutation Former smoker GERD (gastroesophageal reflux disease) History of CVA (cerebrovascular accident) History of pulmonary embolus (PE) Hyperlipidemia Hypertension Pancreatitis Presence of IVC filter Seizure disorder Stroke/cerebrovascular accident Substance abuse Vitamin D deficiency Home Medications furosemide 40 mg tablet 40 mg PO DAILY water pill 09/10/16 [History Last Taken 08/17/23] potassium chloride 10 mEq tablet,extended release(part/cryst) 20 meq PO TID supplment 09/10/16 [History Last Taken 08/17/23] valacyclovir 500 mg tablet (Valtrex) 500 mg PO DAILY herpes 10/25/18 [History Last Taken 08/17/23] linaclotide 290 mcg capsule (Linzess) 290 mcg PO DAILY bowels 05/28/21 [History Last Taken 08/17/23] clonazepam 0.5 mg tablet (Klonopin) 0.5 mg PO DAILY PRN Seizures 12/03/21 [History Last Taken 08/16/23] methenamine hippurate 1 gram tablet (Hiprex) 1 g PO QHS bladder infections 12/03/21 [History Last Taken 08/16/23] venlafaxine 150 mg capsule,extended release 24 hr (Effexor XR) 225 mg PO QHS mood 12/03/21 [History Last Taken 08/17/23] rivaroxaban 10 mg tablet (Xarelto) 10 mg PO QHS blood thinner 07/07/22 [History Last Taken 08/16/23] cholecalciferol (vitamin D3) 1,250 mcg (50,000 unit) capsule 50,000 unit PO FR supplement 02/05/23 [History Last Taken 08/12/23] lacosamide 100 mg tablet (Vimpat) 100 mg PO DAILY seizures 02/05/23 [History Last Taken 08/17/23] lacosamide 200 mg tablet (Vimpat) 200 mg PO QHS seizures 02/05/23 [History Last Taken 08/16/23] lactulose 10 gram/15 mL oral solution 15 ml PO BID PRN Constipation 02/05/23 [History Last Taken Unknown] ropinirole 0.5 mg tablet 0.5 mg PO BID restless legs 02/05/23 [History Last Taken 08/17/23] omeprazole 40 mg capsule,delayed release 40 mg PO BID 02/23/23 [History Last Taken 08/17/23] fenofibrate nanocrystallized 145 mg tablet 145 mg PO QHS 05/07/23 [History Last Taken 08/16/23] aripiprazole 10 mg tablet 10 mg PO DAILY MOOD 06/23/23 [History Last Taken 08/17/23] benztropine 0.5 mg tablet 0.5 mg PO BID 06/23/23 [History Last Taken 07/21/23] divalproex 250 mg tablet,delayed release 250 mg PO Q12H 06/23/23 [History Last Taken 08/17/23] clonidine HCl 0.2 mg tablet 0.2 mg PO DAILY 07/22/23 [History Last Taken 08/17/23] metoprolol succinate 25 mg tablet,extended release 24 hr 25 mg PO DAILY 07/22/23 [History Last Taken 08/17/23] mirtazapine 7.5 mg tablet 7.5 mg PO DAILY DEPRESSION 07/22/23 [History Last Taken 08/16/23] hydrochlorothiazide 25 mg tablet 25 mg PO DAILY edema 08/14/23 [History Last Taken Unknown] vreupyvysx-pwxxgmdkybwxl-gitfjggu 50 mg-325 mg-40 mg tablet 1 - 2 tab PO Q4H PRN migraines 08/17/23 [History Last Taken Unknown] lacosamide 100 mg tablet 200 mg PO QHS 08/17/23 [History Last Taken 08/16/23] magnesium glycinate 100 mg tablet (Mag Glycinate) 100 mg PO DAILY 08/17/23 [History Last Taken 08/17/23] melatonin 10 mg tablet 10 mg PO QHS PRN sleep 08/17/23 [History Last Taken Unknown] nitrofurantoin monohydrate/macrocrystals 100 mg capsule (Macrobid) 100 mg PO DAILY PRN antibiotic 08/17/23 [History Last Taken Unknown] insulin glargine 100 unit/mL (3 mL) subcutaneous pen (Lantus Solostar U-100 Insulin) 20 unit (0.2 mL) subcut DAILY #15 mL 08/18/23 [Rx Last Taken Unknown] oxycodone 5 mg tablet 5 mg PO Q6H PRN pain 3 days #16 tabs 08/18/23 [Rx Last Taken Unknown] pen needle, diabetic 31 gauge x 1/3 #100 ea 08/18/23 [Rx Last Taken Unknown] ondansetron 4 mg disintegrating tablet 4 mg PO Q8H PRN PRN Nausea #10 tabs 10/05/23 [Rx Last Taken Unknown] oxycodone-acetaminophen 5 mg-325 mg tablet (Percocet) 1 tab PO Q8H PRN pain 3 days #10 tabs 10/05/23 [Rx Last Taken Unknown] oxycodone-acetaminophen 5 mg-325 mg tablet 1 tab PO Q6H PRN PRN Pain 3 days #10 TABLETS 10/20/23 [Rx Last Taken Unknown] nitrofurantoin monohydrate/macrocrystals 100 mg capsule (Macrobid) 100 mg PO Q12H 7 days #14 caps 10/23/23 [Rx Last Taken Unknown] promethazine 25 mg tablet 25 mg PO TID PRN nausea and vomiting 7 days #21 tabs 10/23/23 [Rx Last Taken Unknown] Allergy/AdvReac Type Severity Reaction Status Date / Time gabapentin [From Neurontin] Allergy Rash Verified 12/15/23 14:37 Penicillins Allergy Rash Verified 12/15/23 14:37 Sulfa (Sulfonamide Allergy Rash Verified 12/15/23 14:37 Antibiotics) Family History Mother Hypertension Hyperlipidemia Father Heart disease Surgical History H/O: History of appendectomy History of embolic filter insertion History of hysterectomy Hx of cholecystectomy Social History household members: none Smoking Status: Current every day smoker tobacco type: e-cigarettes alcohol intake: former substance use type: marijuana ROS <BENIGNO Donis - Last Filed: 12/15/23 17:54> ROS ED ROS Narrative Constitutional: Negative for fever, chills, malaise. CVS: Negative for chest pain. Respiratory: Negative for shortness of breath. GI: Positive for abdominal pain, nausea. Negative for vomiting, diarrhea, constipation, melena, hematochezia. : Negative for dysuria, hematuria or frequency. EXAM <BENIGNO Donis - Last Filed: 12/15/23 17:54> Physical Exam Narrative Exam Narrative: CONST: Patient sitting in no acute distress. EYES: Normal inspection. NECK: Normal inspection. RESP: No respiratory distress, CTAB. CVS: Regular rate and rhythm, no murmur, no gallop. ABD: Soft with epigastric and right upper quadrant tenderness, no guarding or rebound, nondistended, no hepatosplenomegaly. SKIN: Color normal, no rash, warm, dry, intact. EXTREMITIES: Normal appearance, no pedal edema. NEURO: Oriented x4. PSYCH: Normal affect. Const Vital Signs: 12/15/23 14:37 12/15/23 16:36 12/15/23 17:38 Temperature 97.8 F 98 F Temperature Source Temporal Pulse Rate 106 H 85 84 Respiratory Rate 16 18 14 Blood Pressure 139/104 H 133/94 H 133/89 H Blood Pressure Mean 115 107 103 Pulse Ox 99 96 96 Oxygen Delivery Method Room Air Room Air <Dr. Kendall Kumar MD - Last Filed: 12/15/23 18:42> Physical Exam Const Vital Signs: 12/15/23 14:37 12/15/23 16:36 12/15/23 17:38 Temperature 97.8 F 98 F Temperature Source Temporal Pulse Rate 106 H 85 84 Respiratory Rate 16 18 14 Blood Pressure 139/104 H 133/94 H 133/89 H Blood Pressure Mean 115 107 103 Pulse Ox 99 96 96 Oxygen Delivery Method Room Air Room Air [facility] <BENIGNO Donis - Last Filed: 12/15/23 17:54> [facility] Narrative Medical decision making narrative: Patient presents with upper abdominal pain that started this morning. She has a history of necrotizing pancreatitis and had a recent pancreatic stent and stent removal 1 week ago at . She appears well and nontoxic. HR is 106 with otherwise stable vital signs. She has normal cardiopulmonary exam. Abdomen is soft with mild epigastric and right upper quadrant tenderness but no peritoneal signs. Labs show normal white count at 6.5. Normal electrolytes and creatinine 1.07 around baseline. Total bilirubin is normal at 0.3, AST 35, ALT very minimally elevated at 63 and is similar to previous. Lipase WNL at 15. She was treated with IV morphine, Zofran and Bentyl. She states she still has some pain. She has is in pain management. I recommended she take her pancreatic enzymes as prescribed, use Tylenol as needed, and follow-up with her pain management physician. She was discharged in stable condition. I have personally performed a face to face assessment of the patient and have reviewed the JAYSHREE Note. I performed a substantive portion of the visit including all aspects of the following. My denise findings include: History is remarkable for history of idiopathic pancreatitis with history of pseudocyst. Patient not had an alcoholic beverage since 2011. She is status postcholecystectomy. She had an ERCP performed 2 weeks ago [facility]. She states the cyst was cleaned out. She has an additional cyst involving the tail of the pancreas. It is not uncommon for her to get recurrent pancreatitis. She does endorse nausea without vomiting or diarrhea. She denies cardiac respiratory symptoms. She denies intolerance to any food. She denies black or maroon-colored stool. She denies hematochezia. Patient does have a port. She is present on Lovenox because she failed therapy on oral agent. She developed a portal vein clot. She reports compliance with her Lovenox. She is not compliant with her pancreatic enzyme tablets. She does endorse steatorrhea. She states this is a chronic issue. Exam is a 47-year-old woman with a BMI of 40.6. She appears uncomfortable. Nurse was accessing her port while I was performing history and physical. HEENT exam is unremarkable her lungs are clear auscultation with symmetric breath sounds. Heart is regular. Rate is normal. There is no murmur, gallop or rub. Abdomen is remarkable for epigastric and left upper quadrant pain. There is no pedal splenomegaly. There is voluntary guarding left upper quadrant. There is no involuntary guarding or peritoneal findings. There is no CVA tenderness noted. Medical Decision Making this may represent exacerbation of chronic pancreatitis. Doubt hepatic inflammation. Will obtain CBC, liver profile and lipase. Patient was medicated with Zofran for her nausea and morphine for her pain. Other additions or changes: [None] Lab Data Labs: Laboratory Results - last 24 hr 12/15/23 12/15/23 16:10 16:28 WBC 6.5 RBC 4.73 Hgb 13.8 Hct 42.3 MCV 89.4 MCH 29.2 MCHC 32.6 RDW Std Deviation 43.0 RDW Coeff of Megan 13.1 Plt Count 394 MPV 8.6 Immature Gran % (Auto) 0.500 Neut % (Auto) 59.8 Lymph % (Auto) 27.7 Gilliam % (Auto) 7.7 Eos % (Auto) 3.2 Baso % (Auto) 1.1 H Absolute Neuts (auto) 3.9 Absolute Lymphs (auto) 1.79 Nucleated RBC % 0 Sodium 136 Potassium 3.6 Chloride 102 Carbon Dioxide 25.0 Anion Gap 9 BUN 17 Creatinine 1.07 H Estim Creat Clear Calc 74.09 Est GFR (MDRD) Af Amer 70 Est GFR (MDRD) Non-Af 58 L BUN/Creatinine Ratio 15.9 Glucose 160 H Calcium 9.7 Total Bilirubin 0.30 AST 35 ALT 63 H Alkaline Phosphatase 113 Total Protein 8.3 H Albumin 3.8 Globulin 4.5 H Albumin/Globulin Ratio 0.8 L Lipase 15 <Dr. Kendall Kumar MD - Last Filed: 12/15/23 18:42> [facility] Narrative Medical decision making narrative: I have personally performed a face to face assessment of the patient and have reviewed the JAYSHREE Note. I performed a substantive portion of the visit including all aspects of the following. My denise findings include: History is remarkable for history of idiopathic pancreatitis with history of pseudocyst. Patient not had an alcoholic beverage since 2011. She is status postcholecystectomy. She had an ERCP performed 2 weeks ago [facility]. She states the cyst was cleaned out. She has an additional cyst involving the tail of the pancreas. It is not uncommon for her to get recurrent pancreatitis. She does endorse nausea without vomiting or diarrhea. She denies cardiac respiratory symptoms. She denies intolerance to any food. She denies black or maroon-colored stool. She denies hematochezia. Patient does have a port. She is present on Lovenox because she failed therapy on oral agent. She developed a portal vein clot. She reports compliance with her Lovenox. She is not compliant with her pancreatic enzyme tablets. She does endorse steatorrhea. She states this is a chronic issue. Exam is a 47-year-old woman with a BMI of 40.6. She appears uncomfortable. Nurse was accessing her port while I was performing history and physical. HEENT exam is unremarkable her lungs are clear auscultation with symmetric breath sounds. Heart is regular. Rate is normal. There is no murmur, gallop or rub. Abdomen is remarkable for epigastric and left upper quadrant pain. There is no pedal splenomegaly. There is voluntary guarding left upper quadrant. There is no involuntary guarding or peritoneal findings. There is no CVA tenderness noted. Medical Decision Making this may represent exacerbation of chronic pancreatitis. Doubt hepatic inflammation. Will obtain CBC, liver profile and lipase. Patient was medicated with Zofran for her nausea and morphine for her pain. Other additions or changes: [None] Lab Data Labs: Laboratory Results - last 24 hr 12/15/23 12/15/23 16:10 16:28 WBC 6.5 RBC 4.73 Hgb 13.8 Hct 42.3 MCV 89.4 MCH 29.2 MCHC 32.6 RDW Std Deviation 43.0 RDW Coeff of Megan 13.1 Plt Count 394 MPV 8.6 Immature Gran % (Auto) 0.500 Neut % (Auto) 59.8 Lymph % (Auto) 27.7 Gilliam % (Auto) 7.7 Eos % (Auto) 3.2 Baso % (Auto) 1.1 H Absolute Neuts (auto) 3.9 Absolute Lymphs (auto) 1.79 Nucleated RBC % 0 Sodium 136 Potassium 3.6 Chloride 102 Carbon Dioxide 25.0 Anion Gap 9 BUN 17 Creatinine 1.07 H Estim Creat Clear Calc 74.09 Est GFR (MDRD) Af Amer 70 Est GFR (MDRD) Non-Af 58 L BUN/Creatinine Ratio 15.9 Glucose 160 H Calcium 9.7 Total Bilirubin 0.30 AST 35 ALT 63 H Alkaline Phosphatase 113 Total Protein 8.3 H Albumin 3.8 Globulin 4.5 H Albumin/Globulin Ratio 0.8 L Lipase 15 Discharge Plan Triage Chief Complaint: Abd Pain ED Midlevel Provider: Carrie Gaines ED Provider: Kendall Kumar Dx/Rx/DC Orders Clinical Impression: Epigastric abdominal pain, Hx of chronic pancreatitis, Poor intravenous access, Elevated blood pressure reading, BMI 40.0-44.9, adult Instructions: Communicating About Pain Prescriptions: No Action omeprazole 40 mg capsule,delayed release(DR/EC) 40 mg PO BID furosemide 40 MG tablet 40 mg PO DAILY potassium chloride 10 MEQ tablet 20 meq PO TID valacyclovir [Valtrex] 500 MG tablet 500 mg PO DAILY Linzess 290 mcg capsule 290 mcg PO DAILY methenamine hippurate [Hiprex] 1 gram Tablet 1 g PO QHS clonazepam [Klonopin] 0.5 mg Tablet 0.5 mg PO DAILY PRN (Reason: Seizures) venlafaxine [Effexor XR] 150 mg Capsule,Extended Release 24hr 225 mg PO QHS Xarelto 10 mg tablet 10 mg PO QHS ropinirole 0.5 mg Tablet 0.5 mg PO BID lactulose 10 gram/15 mL Solution 15 ml PO BID PRN (Reason: Constipation) cholecalciferol (vitamin D3) 1,250 mcg (50,000 unit) capsule 50,000 unit PO FR lacosamide [Vimpat] 100 mg Tablet 100 mg PO DAILY lacosamide [Vimpat] 200 mg Tablet 200 mg PO QHS aripiprazole 10 mg tablet 10 mg PO DAILY benztropine 0.5 mg tablet 0.5 mg PO BID divalproex 250 mg tablet,delayed release (DR/EC) 250 mg PO Q12H clonidine HCl 0.2 mg tablet 0.2 mg PO DAILY metoprolol succinate 25 mg tablet extended release 24 hr 25 mg PO DAILY mirtazapine 7.5 mg tablet 7.5 mg PO DAILY promethazine 25 mg tablet 25 mg PO TID PRN (Reason: nausea and vomiting) 7 Days Qty: 21 0RF nitrofurantoin monohyd/m-cryst [Macrobid] 100 mg capsule 100 mg PO Q12H 7 Days Qty: 14 0RF Rx Instructions: must administer with a meal/food fenofibrate nanocrystallized 145 mg tablet 145 mg PO QHS hydrochlorothiazide 25 mg tablet 25 mg PO DAILY melatonin 10 mg tablet 10 mg PO QHS PRN (Reason: sleep) nitrofurantoin monohyd/m-cryst [Macrobid] 100 mg capsule 100 mg PO DAILY PRN (Reason: antibiotic) Mag Glycinate 100 mg tablet 100 mg PO DAILY lacosamide 100 mg tablet 200 mg PO QHS wugeilzljt-kxdevjeevyelk-yhds 50-325-40 mg tablet 1 - 2 tab PO Q4H PRN (Reason: migraines) oxycodone 5 mg tablet 5 mg PO Q6H PRN (Reason: pain) 3 Days Qty: 16 0RF Rx Instructions: 5-10 mg every 6 hours as needed for pain insulin glargine [Lantus Solostar U-100 Insulin] 100 unit/mL (3 mL) insulin pen 20 unit subcut DAILY Qty: 15 0RF Rx Instructions: start on 08/19/23 (DME) pen needle, diabetic 31 gauge x 1/3 needle See Rx Instructions .Route Qty: 100 0RF Rx Instructions: As directed oxycodone-acetaminophen [Percocet] 5-325 mg tablet 1 tab PO Q8H PRN (Reason: pain) 3 Days Qty: 10 0RF ondansetron 4 mg tablet,disintegrating 4 mg PO Q8H PRN PRN (Reason: Nausea) Qty: 10 0RF oxycodone-acetaminophen [oxycodone-acetaminophen] 5-325 mg tablet 1 tab PO Q6H PRN PRN (Reason: Pain) 3 Days Qty: 10 0RF Primary Care Provider: Rin Rivera NP Referrals: Rin Rivera NP, [facility] [Primary Care Provider] - Activity Restrictions/Additional Instructions: Your blood work today looks normal. This is consistent with a flare up of your chronic pancreatitis pain and I recommend taking your pancreatic enzymes and Tylenol every 6 hours as needed and follow-up with your pain management doctor. Disposition Disposition: Home, Self Care Discharge Date/Time: 12/15/23 17:43
[2023-12-15 16:35] LABS: Absolute Lymphocyte Count 1.79 X10^3/uL (0.83-4.51); Absolute Neutrophil Count 3.9 X10^3/uL (2.0-7.7); Basophil# 0.07 X10^3/uL; Basophil% 1.1 % (0-1); Eosinophil# 0.21 X10^3/uL; Eosinophils% 3.2 % (0-5); Hematocrit 42.3 % (37-47); Hemoglobin 13.8 g/dL (12.0-15.0); Lymphocyte # 1.79 X10^3/ul (0.83-4.51); Lymphocyte % 27.7 % (19-41); Mean Corp Hgb Conc 32.6 g/dL (32-36); Mean Corpuscular Hgb 29.2 pg (27.0-32.0); Mean Corpuscular Volume 89.4 fL (81-99); Mean Platelet Vol. 8.6 fl (6.2-12.0); Monocyte% 7.7 % (0-10); NRBC Flagged by Analyzer 0 % (0-5); Neutrophil # 3.87 X10^3/uL (2.7-7.7); Neutrophil % 59.8 % (47-70); Platelet Count 394 K/mm3 (150-450); RBC Distribution Width CV 13.1 % (11.6-14.6); Red Blood Count 4.73 M/mm3 (4.2-5.4); White Blood Count 6.5 K/mm3 (4.4-11.0)
[2023-12-15 16:36] VITALS: BP 133/94; PULSE 85; RESP 18; O2SAT 96
[2023-12-15 16:37] LABS: ALB/GLOB Ratio 0.8 RATIO (0.9-2.4); AST(SGOT) 35 U/L (15-37); Alanine Aminotransfer ALT/SGPT 63 U/L (13-56); Albumin, Serum 3.8 g/dL (3.2-5.0); Alkaline Phosphatase 113 U/L (45-117); Anion Gap 9 (5-15); BUN 17 mg/dL (7-18); BUN/Creat Ratio 15.9 RATIO (10-20); Calcium,Total 9.7 mg/dL (8.5-10.1); Chloride 102 mmol/L (98-107); Creatinine, Serum 1.07 mg/dL (0.55-1.02); EST Glomerular Filtration Rate 58 mL/min (>60); Est Glom Filt Rate - Afr Amer 70 mL/min (>60); Estimated Creatinine Clearance 74.09 ml/min; Globulin 4.5 g/dL (2.2-4.2); Glucose 160 mg/dL (74-106); Lipase 15 U/L (13-75); Potassium 3.6 mmol/L (3.5-5.1); Protein, Total 8.3 g/dL (6.4-8.2); Sodium Level 136 mmol/L (136-145)
[2023-12-15] MEDS: Ondansetron 4 MG/2 ML Vial IV (16:46)
[2023-12-15] MEDS: Morphine 4 MG/ML Syringe IV (16:47)
[2023-12-15] MEDS: Dicyclomine 10 MG Capsule 20 MG PO (17:36)
[2023-12-15 17:38] VITALS: BP 133/89; PULSE 84; RESP 14; TEMP 36.6; O2SAT 96
== END 2023-12-15 17:43 | disposition home or self-care (01) ==
PROVIDERS: Physician Assistant; Emergency Provider Emergency Medicine; PCP Nurse Practitioner Family; Visit Provider Emergency Medicine
DX: R10.13 Epigastric pain (principal); G40.909 Epilepsy, unspecified, not intractable, without status epilepticus; E11.9 Type 2 diabetes mellitus without complications; Z79.4 Long term (current) use of insulin; Z90.49 Acquired absence of other specified parts of digestive tract; Z90.710 Acquired absence of both cervix and uterus; Z86.718 Personal history of other venous thrombosis and embolism; Z79.01 Long term (current) use of anticoagulants; Z86.73 Personal history of transient ischemic attack (TIA), and cerebral infarction without residual deficits; E78.5 Hyperlipidemia, unspecified; I10 Essential (primary) hypertension; Z79.899 Other long term (current) drug therapy; F41.9 Anxiety disorder, unspecified; K21.9 Gastro-esophageal reflux disease without esophagitis; F17.290 Nicotine dependence, other tobacco product, uncomplicated; R03.0 Elevated blood-pressure reading, without diagnosis of hypertension; Z87.19 Personal history of other diseases of the digestive system; Z87.898 Personal history of other specified conditions
CPT/HCPCS: 36415; 80053; 83690; 85025; 96374; 96375; 99282; J7040; J7050; A4216; J2405

== ENCOUNTER 2023-12-17 03:26 | Emergency (ER) | payer MEDICARE, SELFPAY ==
[2023-12-17] VITALS (7 sets, daily range): BP systolic 106–159; BP diastolic 78–94; PULSE 84–100; RESP 18–21; TEMP 36.3–36.9; O2SAT 90–98; BMI 42.5
--- NOTE | 2023-12-17 04:15 | EX.ED.DYSGE1 ---
HPI History of Present Illness Chief Complaint: Abd Pain Informant: patient and spouse/S.O. Narrative Narrative: Patient is a 47-year-old female with past medical history of necrotizing pancreatitis causing chronic pancreatitis as well as type 2 diabetes. Patient was recently at an outside hospital where she had a pancreatic stent placed and then removed and this was approximately 7 days ago that it was removed. She was seen in the ER 2 days ago and underwent a workup for upper abdominal pain and workup showed chronic findings without suggestion of acute infection and she was discharged home. Patient states she was doing well but this evening she ate dinner and then a few hours later developed generalized upper abdominal pain with nausea but no vomiting as well as loose stool. She states she took her home medications without symptom improvement and therefore comes in for evaluation [facility] Medical History Anxiety Chronic constipation Chronic diastolic HF (heart failure) Depression DVT (deep venous thrombosis) Epilepsy Factor V Leiden mutation Former smoker GERD (gastroesophageal reflux disease) History of CVA (cerebrovascular accident) History of pulmonary embolus (PE) Hyperlipidemia Hypertension Pancreatitis Presence of IVC filter Seizure disorder Stroke/cerebrovascular accident Substance abuse Vitamin D deficiency Home Medications furosemide 40 mg tablet 40 mg PO DAILY water pill 09/10/16 [History Last Taken 08/17/23] potassium chloride 10 mEq tablet,extended release(part/cryst) 20 meq PO TID supplment 09/10/16 [History Last Taken 08/17/23] valacyclovir 500 mg tablet (Valtrex) 500 mg PO DAILY herpes 10/25/18 [History Last Taken 08/17/23] linaclotide 290 mcg capsule (Linzess) 290 mcg PO DAILY bowels 05/28/21 [History Last Taken 08/17/23] clonazepam 0.5 mg tablet (Klonopin) 0.5 mg PO DAILY PRN Seizures 12/03/21 [History Last Taken 08/16/23] methenamine hippurate 1 gram tablet (Hiprex) 1 g PO QHS bladder infections 12/03/21 [History Last Taken 08/16/23] venlafaxine 150 mg capsule,extended release 24 hr (Effexor XR) 225 mg PO QHS mood 12/03/21 [History Last Taken 08/17/23] rivaroxaban 10 mg tablet (Xarelto) 10 mg PO QHS blood thinner 07/07/22 [History Last Taken 08/16/23] cholecalciferol (vitamin D3) 1,250 mcg (50,000 unit) capsule 50,000 unit PO FR supplement 02/05/23 [History Last Taken 08/12/23] lacosamide 100 mg tablet (Vimpat) 100 mg PO DAILY seizures 02/05/23 [History Last Taken 08/17/23] lacosamide 200 mg tablet (Vimpat) 200 mg PO QHS seizures 02/05/23 [History Last Taken 08/16/23] lactulose 10 gram/15 mL oral solution 15 ml PO BID PRN Constipation 02/05/23 [History Last Taken Unknown] ropinirole 0.5 mg tablet 0.5 mg PO BID restless legs 02/05/23 [History Last Taken 08/17/23] omeprazole 40 mg capsule,delayed release 40 mg PO BID 02/23/23 [History Last Taken 08/17/23] fenofibrate nanocrystallized 145 mg tablet 145 mg PO QHS 05/07/23 [History Last Taken 08/16/23] aripiprazole 10 mg tablet 10 mg PO DAILY MOOD 06/23/23 [History Last Taken 08/17/23] benztropine 0.5 mg tablet 0.5 mg PO BID 06/23/23 [History Last Taken 07/21/23] divalproex 250 mg tablet,delayed release 250 mg PO Q12H 06/23/23 [History Last Taken 08/17/23] clonidine HCl 0.2 mg tablet 0.2 mg PO DAILY 07/22/23 [History Last Taken 08/17/23] metoprolol succinate 25 mg tablet,extended release 24 hr 25 mg PO DAILY 07/22/23 [History Last Taken 08/17/23] mirtazapine 7.5 mg tablet 7.5 mg PO DAILY DEPRESSION 07/22/23 [History Last Taken 08/16/23] hydrochlorothiazide 25 mg tablet 25 mg PO DAILY edema 08/14/23 [History Last Taken Unknown] nmfgfvrmvf-gckdjsgmamekx-eweqkmdz 50 mg-325 mg-40 mg tablet 1 - 2 tab PO Q4H PRN migraines 08/17/23 [History Last Taken Unknown] lacosamide 100 mg tablet 200 mg PO QHS 08/17/23 [History Last Taken 08/16/23] magnesium glycinate 100 mg tablet (Mag Glycinate) 100 mg PO DAILY 08/17/23 [History Last Taken 08/17/23] melatonin 10 mg tablet 10 mg PO QHS PRN sleep 08/17/23 [History Last Taken Unknown] nitrofurantoin monohydrate/macrocrystals 100 mg capsule (Macrobid) 100 mg PO DAILY PRN antibiotic 08/17/23 [History Last Taken Unknown] insulin glargine 100 unit/mL (3 mL) subcutaneous pen (Lantus Solostar U-100 Insulin) 20 unit (0.2 mL) subcut DAILY #15 mL 08/18/23 [Rx Last Taken Unknown] oxycodone 5 mg tablet 5 mg PO Q6H PRN pain 3 days #16 tabs 08/18/23 [Rx Last Taken Unknown] pen needle, diabetic 31 gauge x / #100 ea 08/18/23 [Rx Last Taken Unknown] ondansetron 4 mg disintegrating tablet 4 mg PO Q8H PRN PRN Nausea #10 tabs 10/05/23 [Rx Last Taken Unknown] oxycodone-acetaminophen 5 mg-325 mg tablet (Percocet) 1 tab PO Q8H PRN pain 3 days #10 tabs 10/05/23 [Rx Last Taken Unknown] oxycodone-acetaminophen 5 mg-325 mg tablet 1 tab PO Q6H PRN PRN Pain 3 days #10 TABLETS 10/20/23 [Rx Last Taken Unknown] nitrofurantoin monohydrate/macrocrystals 100 mg capsule (Macrobid) 100 mg PO Q12H 7 days #14 caps 10/23/23 [Rx Last Taken Unknown] promethazine 25 mg tablet 25 mg PO TID PRN nausea and vomiting 7 days #21 tabs 10/23/23 [Rx Last Taken Unknown] Allergy/AdvReac Type Severity Reaction Status Date / Time gabapentin [From Neurontin] Allergy Rash Verified 12/15/23 14:37 Penicillins Allergy Rash Verified 12/15/23 14:37 Sulfa (Sulfonamide Allergy Rash Verified 12/15/23 14:37 Antibiotics) Family History Mother Hypertension Hyperlipidemia Father Heart disease Surgical History H/O: History of appendectomy History of embolic filter insertion History of hysterectomy Hx of cholecystectomy Social History household members: none Smoking Status: Current every day smoker tobacco type: e-cigarettes alcohol intake: former substance use type: marijuana ROS ROS ED Constitutional Constitutional ED: Denies chills or fever(s) Eyes Eyes: Denies change in vision ENT ENT ED: Denies sore throat Cardiovascular Cardiovascular: Denies chest pain Respiratory/Chest Respiratory/Chest: Denies cough or dyspnea Gastrointestinal Gastrointestinal: Reports abdominal pain, diarrhea and nausea; Denies vomiting Genitourinary Genitourinary ED: Denies dysuria or hematuria Musculoskeletal Musculoskeletal: Denies myalgias Integumentary Denies rash Neurologic Neurologic: Denies headache(s) Hematologic/Lymphatic Hematologic/Lymphatic: Denies easy bleeding or easy bruising EXAM Physical Exam Const Vital Signs: 12/17/23 03:27 12/17/23 03:30 12/17/23 03:29 Temperature 97.4 F L 97.8 F Temperature Source Temporal Oral Pulse Rate 100 98 Respiratory Rate 18 18 Blood Pressure 159/94 H 106/90 H 159/94 H Blood Pressure Mean 115 95 115 Pulse Ox 97 98 Oxygen Delivery Method Room Air Room Air 12/17/23 04:29 Temperature 97.8 F Temperature Source Temporal Pulse Rate 89 Respiratory Rate 21 H Blood Pressure 155/82 H Blood Pressure Mean 106 Pulse Ox 95 Oxygen Delivery Method Room Air Positive well nourished, well developed and obese General Appearance ED: well developed; Negative for pallor Nutritional Appearance: obese HEENT HEENT Narrative: No signs of infection noted in the posterior pharynx No oral lesions no airway edema or compromise Eyes PERRL and EOMs intact bilaterally Neck supple Resp normal respiratory effort and clear to auscultation bilaterally Cardio regular rate and regular rhythm Rate: other Other Details: Radial and carotid pulses are equal and symmetric GI non-distended GI Narrative: Abdomen is soft and nondistended with normal active bowel sounds. Patient has mild pain on palpation across the upper abdomen diffusely slightly more prevalent in the right upper and midepigastric region. However no voluntary guarding or rigidity. No pulsatile mass or fluid wave. No increased tympany. Negative Barrett sign Auscultation: normoactive bowel sounds Palpation: soft Extremity normal to inspection Extremity Narrative: No asymmetric edema no pitting edema negative Homans' sign bilaterally Neuro oriented x3, CN's II-XII intact bilaterally and no sensory deficits noted Sensorium / Orientation: alert Motor Exam: strength 5/5 throughout Psych mental status grossly normal Skin no rashes or lesions noted and no wounds General Skin Exam: Negative for jaundice or pallor MDM MDM MDM Narrative Medical decision making narrative: Patient arrived to the ER hypertensive otherwise with stable vitals. She been seen recently and had negative workup. The fact she is on Lovenox and states has been taking as directed indicates there is little concern that the recent thrombosis is reoccurring or causing complications. Differential diagnosis is for acute exacerbation of chronic pancreatitis versus colitis versus acute kidney injury versus electrolyte abnormality. Patient blood work showed lipase to be normal and similar to the recent visit going against acute pancreatitis. Also with patient being afebrile and no white count concern for an acute infective process is low. Labs show no signs of acute kidney injury or severe electro abnormality either. Liver enzymes have all normalized going against transaminitis. Patient was given IV fluids and Dilaudid and had resolution of her pain and on reevaluation abdomen remains soft and nonsurgical. Therefore is workup and history is indicating acute exacerbation of chronic pancreatitis and symptoms have improved and laboratory studies have not shown any clinically significant derangements she is otherwise safe for discharge. As she is in pain management she needs to continue her home medications as directed by her doctor History & Record Review Discussion w/independent historian: Patient Lab Data Attestation: I reviewed the patient's lab results. Labs: Laboratory Results - last 24 hr 12/17/23 04:21 WBC 6.7 RBC 4.34 Hgb 12.7 Hct 39.0 MCV 89.9 MCH 29.3 MCHC 32.6 RDW Std Deviation 43.0 RDW Coeff of Megan 13.1 Plt Count 397 MPV 8.4 Immature Gran % (Auto) 0.400 Neut % (Auto) 60.1 Lymph % (Auto) 28.4 [place] % (Auto) 7.2 Eos % (Auto) 3.0 Baso % (Auto) 0.9 Absolute Neuts (auto) 4.0 Absolute Lymphs (auto) 1.90 Nucleated RBC % 0 Sodium 136 Potassium 4.2 Chloride 102 Carbon Dioxide 25.0 Anion Gap 9 BUN 22 H Creatinine 0.98 Estim Creat Clear Calc 83.08 Est GFR (MDRD) Af Amer 78 Est GFR (MDRD) Non-Af 64 BUN/Creatinine Ratio 22.5 H Glucose 220 H Calcium 8.5 Total Bilirubin 0.30 Direct Bilirubin 0.10 AST 35 ALT 53 Alkaline Phosphatase 97 Total Protein 7.3 Albumin 3.3 Globulin 4.0 Lipase 15 Discharge Plan Triage Chief Complaint: Abd Pain Other Complaint: Nausea/Vomiting/Diarrhea ED Provider: Paul Escamilla Dx/Rx/DC Orders Clinical Impression: Chronic pancreatitis, Type 2 diabetes mellitus, Hypertension Instructions: ED Pancreatitis Prescriptions: No Action omeprazole 40 mg capsule,delayed release(DR/EC) 40 mg PO BID furosemide 40 MG tablet 40 mg PO DAILY potassium chloride 10 MEQ tablet 20 meq PO TID valacyclovir [Valtrex] 500 MG tablet 500 mg PO DAILY Linzess 290 mcg capsule 290 mcg PO DAILY methenamine hippurate [Hiprex] 1 gram Tablet 1 g PO QHS clonazepam [Klonopin] 0.5 mg Tablet 0.5 mg PO DAILY PRN (Reason: Seizures) venlafaxine [Effexor XR] 150 mg Capsule,Extended Release 24hr 225 mg PO QHS Xarelto 10 mg tablet 10 mg PO QHS ropinirole 0.5 mg Tablet 0.5 mg PO BID lactulose 10 gram/15 mL Solution 15 ml PO BID PRN (Reason: Constipation) cholecalciferol (vitamin D3) 1,250 mcg (50,000 unit) capsule 50,000 unit PO FR lacosamide [Vimpat] 100 mg Tablet 100 mg PO DAILY lacosamide [Vimpat] 200 mg Tablet 200 mg PO QHS aripiprazole 10 mg tablet 10 mg PO DAILY benztropine 0.5 mg tablet 0.5 mg PO BID divalproex 250 mg tablet,delayed release (DR/EC) 250 mg PO Q12H clonidine HCl 0.2 mg tablet 0.2 mg PO DAILY metoprolol succinate 25 mg tablet extended release 24 hr 25 mg PO DAILY mirtazapine 7.5 mg tablet 7.5 mg PO DAILY promethazine 25 mg tablet 25 mg PO TID PRN (Reason: nausea and vomiting) 7 Days Qty: 21 0RF nitrofurantoin monohyd/m-cryst [Macrobid] 100 mg capsule 100 mg PO Q12H 7 Days Qty: 14 0RF Rx Instructions: must administer with a meal/food fenofibrate nanocrystallized 145 mg tablet 145 mg PO QHS hydrochlorothiazide 25 mg tablet 25 mg PO DAILY melatonin 10 mg tablet 10 mg PO QHS PRN (Reason: sleep) nitrofurantoin monohyd/m-cryst [Macrobid] 100 mg capsule 100 mg PO DAILY PRN (Reason: antibiotic) Mag Glycinate 100 mg tablet 100 mg PO DAILY lacosamide 100 mg tablet 200 mg PO QHS [id number]-[id number] 50-325-40 mg tablet 1 - 2 tab PO Q4H PRN (Reason: migraines) oxycodone 5 mg tablet 5 mg PO Q6H PRN (Reason: pain) 3 Days Qty: 16 0RF Rx Instructions: 5-10 mg every 6 hours as needed for pain insulin glargine [Lantus Solostar U-100 Insulin] 100 unit/mL (3 mL) insulin pen 20 unit subcut DAILY Qty: 15 0RF Rx Instructions: start on 08/19/23 (DME) pen needle, diabetic 31 gauge x 1/3 needle See Rx Instructions .Route Qty: 100 0RF Rx Instructions: As directed oxycodone-acetaminophen [Percocet] 5-325 mg tablet 1 tab PO Q8H PRN (Reason: pain) 3 Days Qty: 10 0RF ondansetron 4 mg tablet,disintegrating 4 mg PO Q8H PRN PRN (Reason: Nausea) Qty: 10 0RF oxycodone-acetaminophen [oxycodone-acetaminophen] 5-325 mg tablet 1 tab PO Q6H PRN PRN (Reason: Pain) 3 Days Qty: 10 0RF Primary Care Provider: Rin Rivera NP Referrals: Rin Rivera NP, [employer] [Primary Care Provider] - Activity Restrictions/Additional Instructions: Please continue all of your medications as directed by your doctor and return to the ER should you have any further concerns Disposition Disposition: Home, Self Care
[2023-12-17] MEDS: 0.9% Normal Saline (1000mL) 1,000 ML 999 ML IV (04:25)
[2023-12-17 04:26] LABS: Basophil# 0.06 X10^3/uL; Basophil% 0.9 % (0-1); Hemoglobin 12.7 g/dL (12.0-15.0); Lymphocyte % 28.4 % (19-41); Mean Corp Hgb Conc 32.6 g/dL (32-36); Mean Corpuscular Hgb 29.3 pg (27.0-32.0); Mean Corpuscular Volume 89.9 fL (81-99); Mean Platelet Vol. 8.4 fl (6.2-12.0); Monocyte# 0.48 X10^3/uL; Monocyte% 7.2 % (0-10); NRBC Flagged by Analyzer 0 % (0-5); Neutrophil # 4.02 X10^3/uL (2.7-7.7); Neutrophil % 60.1 % (47-70); Platelet Count 397 K/mm3 (150-450); RBC Distribution Width CV 13.1 % (11.6-14.6); Red Blood Count 4.34 M/mm3 (4.2-5.4); White Blood Count 6.7 K/mm3 (4.4-11.0)
[2023-12-17] MEDS: HYDROmorphone 1 MG/ML Syringe IV ×2 (04:29→05:43)
[2023-12-17] MEDS: Ondansetron 4 MG/2 ML Vial IV (04:29)
[2023-12-17 04:44] LABS: AST(SGOT) 35 U/L (15-37); Alanine Aminotransfer ALT/SGPT 53 U/L (13-56); Albumin, Serum 3.3 g/dL (3.2-5.0); Alkaline Phosphatase 97 U/L (45-117); Anion Gap 9 (5-15); BUN 22 mg/dL (7-18); BUN/Creat Ratio 22.5 RATIO (10-20); Calcium,Total 8.5 mg/dL (8.5-10.1); Chloride 102 mmol/L (98-107); Creatinine, Serum 0.98 mg/dL (0.55-1.02); EST Glomerular Filtration Rate 64 mL/min (>60); Est Glom Filt Rate - Afr Amer 78 mL/min (>60); Estimated Creatinine Clearance 83.08 ml/min; Glucose 220 mg/dL (74-106); Lipase 15 U/L (13-75); Potassium 4.2 mmol/L (3.5-5.1); Protein, Total 7.3 g/dL (6.4-8.2); Sodium Level 136 mmol/L (136-145)
== END 2023-12-17 06:17 | disposition home or self-care (01) ==
PROVIDERS: Emergency Provider Emergency Medicine; PCP Nurse Practitioner Family; Visit Provider Emergency Medicine
DX: K86.1 Other chronic pancreatitis (principal); I11.0 Hypertensive heart disease with heart failure; I50.32 Chronic diastolic (congestive) heart failure; G40.909 Epilepsy, unspecified, not intractable, without status epilepticus; E11.9 Type 2 diabetes mellitus without complications; Z86.73 Personal history of transient ischemic attack (TIA), and cerebral infarction without residual deficits; E78.5 Hyperlipidemia, unspecified; F32.A Depression, unspecified; F41.9 Anxiety disorder, unspecified; Z86.718 Personal history of other venous thrombosis and embolism; Z79.01 Long term (current) use of anticoagulants; K21.9 Gastro-esophageal reflux disease without esophagitis; Z90.49 Acquired absence of other specified parts of digestive tract; Z90.710 Acquired absence of both cervix and uterus; F17.290 Nicotine dependence, other tobacco product, uncomplicated; Z79.899 Other long term (current) drug therapy
CPT/HCPCS: 80048; 80076; 83690; 85025; 96361; 96374; 96375; 99284; J7030; A4216; J2405

== ENCOUNTER 2024-01-05 13:18 | Emergency (ER) | payer MEDICARE, SELFPAY ==
[2024-01-05 13:19] VITALS: BP 133/95; PULSE 116; RESP 20; TEMP 36.1; O2SAT 97; BMI 42.1
[2024-01-05 13:25] VITALS: BP 132/85; PULSE 95; RESP 16; O2SAT 98
--- NOTE | 2024-01-05 13:45 | EKG12_ITS ---
Test Reason : CP Blood Pressure : / mmHG Vent. Rate : 111 BPM Atrial Rate : 111 BPM P-R Int : 138 ms QRS Dur : 084 ms QT Int : 342 ms P-R-T Axes : 040 033 038 degrees QTc Int : 465 ms Sinus tachycardia Otherwise normal ECG Confirmed by JONATHAN VASQUEZ, MERRITT ([id number]), editorial project manager BECKY ELIAS ([id number]) on 01/06/2024 8:19:31 AM Referred By: JAY/EMILIE Confirmed By:MERRITT CASTILLO MD
--- NOTE | 2024-01-05 13:50 | EX.ED.DYSGE1 ---
HPI <BENIGNO Donis - Last Filed: 01/05/24 16:01> History of Present Illness Chief Complaint: Abd Pain Narrative Narrative: 47-year-old female has a past medical history of DM2, necrotizing pancreatitis, chronic pain. This morning she ate breakfast potatoes and about half an hour later 8:30 AM she developed upper abdominal pain with nausea. The pain occasionally shoots towards her left shoulder and neck. She feels nauseated without vomiting. She reports having 1-2 loose stools per day this week but no melena or hematochezia. She receives pain management infusions every 2 weeks with propofol, ketamine and lidocaine for chronic pain and had an infusion yesterday. Her pain management GI team is at . She is on Lovenox for portal vein thrombosis. [facility] <BENIGNO Donis - Last Filed: 01/05/24 16:01> [facility] Medical History Anxiety Chronic constipation Chronic diastolic HF (heart failure) Depression DVT (deep venous thrombosis) Epilepsy Factor V Leiden mutation Former smoker GERD (gastroesophageal reflux disease) History of CVA (cerebrovascular accident) History of pulmonary embolus (PE) Hyperlipidemia Hypertension Pancreatitis Presence of IVC filter Seizure disorder Stroke/cerebrovascular accident Substance abuse Vitamin D deficiency Home Medications furosemide 40 mg tablet 40 mg PO DAILY water pill 09/10/16 [History Last Taken 08/17/23] potassium chloride 10 mEq tablet,extended release(part/cryst) 20 meq PO TID supplment 09/10/16 [History Last Taken 08/17/23] valacyclovir 500 mg tablet (Valtrex) 500 mg PO DAILY herpes 10/25/18 [History Last Taken 08/17/23] linaclotide 290 mcg capsule (Linzess) 290 mcg PO DAILY bowels 05/28/21 [History Last Taken 08/17/23] clonazepam 0.5 mg tablet (Klonopin) 0.5 mg PO DAILY PRN Seizures 12/03/21 [History Last Taken 08/16/23] methenamine hippurate 1 gram tablet (Hiprex) 1 g PO QHS bladder infections 12/03/21 [History Last Taken 08/16/23] venlafaxine 150 mg capsule,extended release 24 hr (Effexor XR) 225 mg PO QHS mood 12/03/21 [History Last Taken 08/17/23] rivaroxaban 10 mg tablet (Xarelto) 10 mg PO QHS blood thinner 07/07/22 [History Last Taken 08/16/23] cholecalciferol (vitamin D3) 1,250 mcg (50,000 unit) capsule 50,000 unit PO FR supplement 02/05/23 [History Last Taken 08/12/23] lacosamide 100 mg tablet (Vimpat) 100 mg PO DAILY seizures 02/05/23 [History Last Taken 08/17/23] lacosamide 200 mg tablet (Vimpat) 200 mg PO QHS seizures 02/05/23 [History Last Taken 08/16/23] ropinirole 0.5 mg tablet 0.5 mg PO BID restless legs 02/05/23 [History Last Taken 08/17/23] omeprazole 40 mg capsule,delayed release 40 mg PO BID 02/23/23 [History Last Taken 08/17/23] fenofibrate nanocrystallized 145 mg tablet 145 mg PO QHS 05/07/23 [History Last Taken 08/16/23] aripiprazole 10 mg tablet 10 mg PO DAILY MOOD 06/23/23 [History Last Taken 08/17/23] benztropine 0.5 mg tablet 0.5 mg PO BID 06/23/23 [History Last Taken 07/21/23] divalproex 250 mg tablet,delayed release 250 mg PO Q12H 06/23/23 [History Last Taken 08/17/23] clonidine HCl 0.2 mg tablet 0.2 mg PO DAILY 07/22/23 [History Last Taken 08/17/23] metoprolol succinate 25 mg tablet,extended release 24 hr 25 mg PO DAILY 07/22/23 [History Last Taken 08/17/23] mirtazapine 7.5 mg tablet 7.5 mg PO DAILY DEPRESSION 07/22/23 [History Last Taken 08/16/23] xwifodptrr-uierucywjmktf-jpkrlpcj 50 mg-325 mg-40 mg tablet 1 - 2 tab PO Q4H PRN migraines 08/17/23 [History Last Taken Unknown] lacosamide 100 mg tablet 200 mg PO QHS 08/17/23 [History Last Taken 08/16/23] magnesium glycinate 100 mg tablet (Mag Glycinate) 100 mg PO DAILY 08/17/23 [History Last Taken 08/17/23] melatonin 10 mg tablet 5 mg PO QHS PRN sleep 08/17/23 [History Last Taken Unknown] insulin glargine 100 unit/mL (3 mL) subcutaneous pen (Lantus Solostar U-100 Insulin) 20 unit (0.2 mL) subcut DAILY #15 mL 08/18/23 [Rx Last Taken Unknown] oxycodone 5 mg tablet 5 mg PO Q6H PRN pain 3 days #16 tabs 08/18/23 [Rx Last Taken Unknown] pen needle, diabetic 31 gauge x 09/21 #100 ea 08/18/23 [Rx Last Taken Unknown] oxycodone-acetaminophen 5 mg-325 mg tablet (Percocet) 1 tab PO Q8H PRN pain 3 days #10 tabs 10/05/23 [Rx Last Taken Unknown] oxycodone-acetaminophen 5 mg-325 mg tablet 1 tab PO Q6H PRN PRN Pain 3 days #10 TABLETS 10/20/23 [Rx Last Taken Unknown] promethazine 25 mg tablet 25 mg PO TID PRN nausea and vomiting 7 days #21 tabs 10/23/23 [Rx Last Taken Unknown] Allergy/AdvReac Type Severity Reaction Status Date / Time gabapentin [From Neurontin] Allergy Rash Verified 01/05/24 13:22 Penicillins Allergy Rash Verified 01/05/24 13:22 Sulfa (Sulfonamide Allergy Rash Verified 01/05/24 13:22 Antibiotics) Family History Mother Hypertension Hyperlipidemia Father Heart disease Surgical History H/O: History of appendectomy History of embolic filter insertion History of hysterectomy Hx of cholecystectomy Social History household members: none Smoking Status: Current every day smoker tobacco type: e-cigarettes alcohol intake: former substance use type: marijuana ROS <BENIGNO Donis - Last Filed: 01/05/24 16:01> ROS ED ROS Narrative Constitutional: Negative for fever, chills, malaise. GI: Positive for abdominal pain, nausea. Negative for vomiting, constipation, melena, hematochezia. : Negative for dysuria, hematuria or frequency. EXAM <BENIGNO Donis - Last Filed: 01/05/24 16:01> Physical Exam Narrative Exam Narrative: CONST: Patient sitting in no acute distress. EYES: Normal inspection. NECK: Normal inspection. RESP: No respiratory distress, CTAB. CVS: Regular rate and rhythm, no murmur, no gallop. ABD: Soft with right upper quadrant and epigastric tenderness, no guarding or rebound, nondistended, no hepatosplenomegaly. SKIN: Color normal, no rash, warm, dry, intact. EXTREMITIES: Normal appearance, no pedal edema. NEURO: Alert and answering questions appropriately. PSYCH: Normal affect. Const Vital Signs: 01/05/24 13:19 01/05/24 13:25 01/05/24 14:50 Temperature 96.9 F L Temperature Source Temporal Pulse Rate 116 H 95 Respiratory Rate 20 H 16 Respiratory Effort Normal Non-Labored Blood Pressure 133/95 H 132/85 H Blood Pressure Mean 107 100 Pulse Ox 97 98 Oxygen Delivery Method Room Air Room Air 01/05/24 15:25 01/05/24 16:51 Temperature 98.2 F Temperature Source Pulse Rate 90 93 Respiratory Rate 22 H 20 H Respiratory Effort Blood Pressure 110/72 118/69 Blood Pressure Mean 84 85 Pulse Ox 97 97 Oxygen Delivery Method Room Air <Dr. Kendall Kumar MD - Last Filed: 01/05/24 18:53> Physical Exam Const Vital Signs: 01/05/24 13:19 01/05/24 13:25 01/05/24 14:50 Temperature 96.9 F L Temperature Source Temporal Pulse Rate 116 H 95 Respiratory Rate 20 H 16 Respiratory Effort Normal Non-Labored Blood Pressure 133/95 H 132/85 H Blood Pressure Mean 107 100 Pulse Ox 97 98 Oxygen Delivery Method Room Air Room Air 01/05/24 15:25 01/05/24 16:51 Temperature 98.2 F Temperature Source Pulse Rate 90 93 Respiratory Rate 22 H 20 H Respiratory Effort Blood Pressure 110/72 118/69 Blood Pressure Mean 84 85 Pulse Ox 97 97 Oxygen Delivery Method Room Air MDM <BENIGNO Donis - Last Filed: 01/05/24 16:01> MDM MDM Narrative Medical decision making narrative: Patient has nausea and epigastric pain after eating fried potato this morning. She has a history of chronic pancreatitis and is in pain management. She appears well and nontoxic. She was slightly tachycardic at 116 with otherwise normal vital signs. She is tender in epigastrium and right upper quadrant but abdomen is soft with no peritoneal signs. Differential includes GERD/PUD, pancreatitis, electrolyte abnormality with recent diarrhea. Lab work overall is unremarkable. Lipase normal at 55. Glucose is 305 with normal CO2 and anion gap. She states she normally runs in the 200s but has been a little bit higher this week although there is no changes to her regimen. Initially she had received IV morphine, Zofran and Bentyl. After normal workup I ordered Toradol, Pepcid and GI cocktail. She is tolerating p.o. intake and able to go home. I recommended she follow-up with her established care team and she was discharged in stable condition. I have personally performed a face to face assessment of the patient and have reviewed the JAYSHREE Note. I performed a substantive portion of the visit including all aspects of the following. My denise findings include: History is remarkable for epigastric pain that started this morning. She does report nausea. She states she had diarrhea for a week. She did not have any diarrhea yesterday. She denied blood or mucus in her diarrhea. Patient's pain started after eating something greasy/fried this morning. She has a history of necrotizing pancreatitis with pancreatic pseudocyst. There was a 10 cm pseudocyst head of the pancreas which was drained at [facility]. She states they did not drain the pseudocyst that was noted in the tail. Patient denies pain rating into the back. When asked to tell me where the pain is patient pushed on her abdomen and did not appear in discomfort. She denies dysuria, frequency, urgency or hematuria. She denies cough or shortness of breath. She denies chest discomfort. Exam is remarkable for a heavyset woman with a BMI of 42.2. Patient has a port right subclavian noted. HEENT exam is remarkable dry mucosa. Heart is regular. Rate is normal. There is no murmur, gallop or rub. Lungs are with symmetric breath sounds. Patient has pain on proportion to tactile stimuli and light palpation. Bowel sounds are increased. There is no CVA tenderness noted. There is no guarding. Medical Decision Making patient does have known pathology. Patient also has history of alcohol and drug abuse. Will review prior records to determine if patient's pancreatitis is always associated with elevated lipase. CT may be required. Will obtain basic blood work to assess white count differential and H&H. Renal function electrolytes specially since she has had diarrhea and to evaluate for hypokalemia. With history of drug abuse and no history of allergy to NSAIDs will administer 1 dose of IV ketorolac. I am aware that patient is on Lovenox however 1 dose will not cause any significant complications. Other additions or changes: [None] Lab Data Labs: Laboratory Results - last 24 hr 01/05/24 14:35 WBC 9.7 RBC 4.25 Hgb 12.5 Hct 38.6 MCV 90.8 MCH 29.4 MCHC 32.4 RDW Std Deviation 44.1 H RDW Coeff of Megan 13.3 Plt Count 284 MPV 8.7 Immature Gran % (Auto) 1.200 H Neut % (Auto) 76.1 H Lymph % (Auto) 15.4 L Banks % (Auto) 5.3 Eos % (Auto) 1.4 Baso % (Auto) 0.6 Absolute Neuts (auto) 7.4 Absolute Lymphs (auto) 1.49 Nucleated RBC % 0 Sodium 135 L Potassium 3.9 Chloride 103 Carbon Dioxide 25.0 Anion Gap 7 BUN 13 Creatinine 0.91 Estim Creat Clear Calc 88.10 Est GFR (MDRD) Af Amer 84 Est GFR (MDRD) Non-Af 70 BUN/Creatinine Ratio 14.2 Glucose 305 H Calcium 8.8 Total Bilirubin 0.30 AST 59 H ALT 139 H Alkaline Phosphatase 108 Troponin I High Sens < 3 L Total Protein 7.4 Albumin 3.3 Globulin 4.1 Albumin/Globulin Ratio 0.8 L Lipase 55 <Dr. Kendall Kumar MD - Last Filed: 01/05/24 18:53> [facility] Narrative Medical decision making narrative: I have personally performed a face to face assessment of the patient and have reviewed the JAYSHREE Note. I performed a substantive portion of the visit including all aspects of the following. My denise findings include: History is remarkable for epigastric pain that started this morning. She does report nausea. She states she had diarrhea for a week. She did not have any diarrhea yesterday. She denied blood or mucus in her diarrhea. Patient's pain started after eating something greasy/fried this morning. She has a history of necrotizing pancreatitis with pancreatic pseudocyst. There was a 10 cm pseudocyst head of the pancreas which [facility] She states they did not drain the pseudocyst that was noted in the tail. Patient denies pain rating into the back. When asked to tell me where the pain is patient pushed on her abdomen and did not appear in discomfort. She denies dysuria, frequency, urgency or hematuria. She denies cough or shortness of breath. She denies chest discomfort. Exam is remarkable for a heavyset woman with a BMI of 42.2. Patient has a port right subclavian noted. HEENT exam is remarkable dry mucosa. Heart is regular. Rate is normal. There is no murmur, gallop or rub. Lungs are with symmetric breath sounds. Patient has pain on proportion to tactile stimuli and light palpation. Bowel sounds are increased. There is no CVA tenderness noted. There is no guarding. Medical Decision Making patient does have known pathology. Patient also has history of alcohol and drug abuse. Will review prior records to determine if patient's pancreatitis is always associated with elevated lipase. CT may be required. Will obtain basic blood work to assess white count differential and H&H. Renal function electrolytes specially since she has had diarrhea and to evaluate for hypokalemia. With history of drug abuse and no history of allergy to NSAIDs will administer 1 dose of IV ketorolac. I am aware that patient is on Lovenox however 1 dose will not cause any significant complications. Other additions or changes: [None] History & Record Review Additional record(s) reviewed:: Prior ED visit (Patient was seen October 23, 2023. Lipase at that time was normal. CT revealed no evidence of acute pancreatitis. Did reveal the pseudocyst.) and Prior labs Lab Data Attestation: I reviewed the patient's lab results. Lab results narrative: CBC including differential is unremarkable. Electrolyte panel is remarked for glucose of 305 with normal CO2 anion gap. Troponin is less than 3. Lipase is 55 which is normal. Labs: Laboratory Results - last 24 hr 01/05/24 14:35 WBC 9.7 RBC 4.25 Hgb 12.5 Hct 38.6 MCV 90.8 MCH 29.4 MCHC 32.4 RDW Std Deviation 44.1 H RDW Coeff of Megan 13.3 Plt Count 284 MPV 8.7 Immature Gran % (Auto) 1.200 H Neut % (Auto) 76.1 H Lymph % (Auto) 15.4 L Banks % (Auto) 5.3 Eos % (Auto) 1.4 Baso % (Auto) 0.6 Absolute Neuts (auto) 7.4 Absolute Lymphs (auto) 1.49 Nucleated RBC % 0 Sodium 135 L Potassium 3.9 Chloride 103 Carbon Dioxide 25.0 Anion Gap 7 BUN 13 Creatinine 0.91 Estim Creat Clear Calc 88.10 Est GFR (MDRD) Af Amer 84 Est GFR (MDRD) Non-Af 70 BUN/Creatinine Ratio 14.2 Glucose 305 H Calcium 8.8 Total Bilirubin 0.30 AST 59 H ALT 139 H Alkaline Phosphatase 108 Troponin I High Sens < 3 L Total Protein 7.4 Albumin 3.3 Globulin 4.1 Albumin/Globulin Ratio 0.8 L Lipase 55 Discharge Plan Triage Chief Complaint: Abd Pain Other Complaint: Chest Pain ED Midlevel Provider: Carrie Gaines ED Provider: Kendall Kumar Dx/Rx/DC Orders Clinical Impression: History of chronic pancreatitis, Diabetes mellitus with hyperglycemia, Acute epigastric pain Instructions: ED Abdominal Pain Unkn Cause Fem Prescriptions: No Action omeprazole 40 mg capsule,delayed release(DR/EC) 40 mg PO BID furosemide 40 MG tablet 40 mg PO DAILY potassium chloride 10 MEQ tablet 20 meq PO TID valacyclovir [Valtrex] 500 MG tablet 500 mg PO DAILY Linzess 290 mcg capsule 290 mcg PO DAILY methenamine hippurate [Hiprex] 1 gram Tablet 1 g PO QHS clonazepam [Klonopin] 0.5 mg Tablet 0.5 mg PO DAILY PRN (Reason: Seizures) venlafaxine [Effexor XR] 150 mg Capsule,Extended Release 24hr 225 mg PO QHS Xarelto 10 mg tablet 10 mg PO QHS ropinirole 0.5 mg Tablet 0.5 mg PO BID cholecalciferol (vitamin D3) 1,250 mcg (50,000 unit) capsule 50,000 unit PO FR lacosamide [Vimpat] 100 mg Tablet 100 mg PO DAILY lacosamide [Vimpat] 200 mg Tablet 200 mg PO QHS aripiprazole 10 mg tablet 10 mg PO DAILY benztropine 0.5 mg tablet 0.5 mg PO BID divalproex 250 mg tablet,delayed release (DR/EC) 250 mg PO Q12H clonidine HCl 0.2 mg tablet 0.2 mg PO DAILY metoprolol succinate 25 mg tablet extended release 24 hr 25 mg PO DAILY mirtazapine 7.5 mg tablet 7.5 mg PO DAILY promethazine 25 mg tablet 25 mg PO TID PRN (Reason: nausea and vomiting) 7 Days Qty: 21 0RF fenofibrate nanocrystallized 145 mg tablet 145 mg PO QHS melatonin 10 mg tablet 5 mg PO QHS PRN (Reason: sleep) Mag Glycinate 100 mg tablet 100 mg PO DAILY lacosamide 100 mg tablet 200 mg PO QHS juddkgfrig-araumozabsxly-cytx 50-325-40 mg tablet 1 - 2 tab PO Q4H PRN (Reason: migraines) oxycodone 5 mg tablet 5 mg PO Q6H PRN (Reason: pain) 3 Days Qty: 16 0RF Rx Instructions: 5-10 mg every 6 hours as needed for pain insulin glargine [Lantus Solostar U-100 Insulin] 100 unit/mL (3 mL) insulin pen 20 unit subcut DAILY Qty: 15 0RF Rx Instructions: start on 08/19/23 (DME) pen needle, diabetic 31 gauge x 1/3 needle See Rx Instructions .Route Qty: 100 0RF Rx Instructions: As directed oxycodone-acetaminophen [Percocet] 5-325 mg tablet 1 tab PO Q8H PRN (Reason: pain) 3 Days Qty: 10 0RF oxycodone-acetaminophen [oxycodone-acetaminophen] 5-325 mg tablet 1 tab PO Q6H PRN PRN (Reason: Pain) 3 Days Qty: 10 0RF Primary Care Provider: Rin Rivera NP Referrals: Rin Rivera NP, [facility] [Primary Care Provider] - Activity Restrictions/Additional Instructions: Follow-up with your GI team and pain management doctor. Avoid fried or fatty foods. Your blood sugar was around 300?if it continues to run high at home talk to your physician who prescribed her diabetic medications for adjustment. Disposition Disposition: Home, Self Care Discharge Date/Time: 01/05/24 16:52
[2024-01-05] MEDS: Dicyclomine 20 MG/2 ML Vial IM (14:39)
[2024-01-05] MEDS: Morphine 4 MG/ML Syringe IV (14:39)
[2024-01-05] MEDS: Ondansetron 4 MG/2 ML Vial IV (14:39)
[2024-01-05 14:46] LABS: Absolute Lymphocyte Count 1.49 X10^3/uL (0.83-4.51); Absolute Neutrophil Count 7.4 X10^3/uL (2.0-7.7); Basophil# 0.06 X10^3/uL; Basophil% 0.6 % (0-1); Eosinophil# 0.14 X10^3/uL; Eosinophils% 1.4 % (0-5); Hematocrit 38.6 % (37-47); Hemoglobin 12.5 g/dL (12.0-15.0); Lymphocyte # 1.49 X10^3/ul (0.83-4.51); Lymphocyte % 15.4 % (19-41); Mean Corp Hgb Conc 32.4 g/dL (32-36); Mean Corpuscular Hgb 29.4 pg (27.0-32.0); Mean Corpuscular Volume 90.8 fL (81-99); Mean Platelet Vol. 8.7 fl (6.2-12.0); Monocyte# 0.51 X10^3/uL; Monocyte% 5.3 % (0-10); NRBC Flagged by Analyzer 0 % (0-5); Neutrophil # 7.35 X10^3/uL (2.7-7.7); Neutrophil % 76.1 % (47-70); Platelet Count 284 K/mm3 (150-450); RBC Distribution Width CV 13.3 % (11.6-14.6); RBC Distribution Width SD 44.1 fl (35.1-43.9); Red Blood Count 4.25 M/mm3 (4.2-5.4); White Blood Count 9.7 K/mm3 (4.4-11.0)
[2024-01-05 15:14] LABS: ALB/GLOB Ratio 0.8 RATIO (0.9-2.4); AST(SGOT) 59 U/L (15-37); Alanine Aminotransfer ALT/SGPT 139 U/L (13-56); Albumin, Serum 3.3 g/dL (3.2-5.0); Alkaline Phosphatase 108 U/L (45-117); Anion Gap 7 (5-15); BUN 13 mg/dL (7-18); BUN/Creat Ratio 14.2 RATIO (10-20); Calcium,Total 8.8 mg/dL (8.5-10.1); Chloride 103 mmol/L (98-107); Creatinine, Serum 0.91 mg/dL (0.55-1.02); EST Glomerular Filtration Rate 70 mL/min (>60); Est Glom Filt Rate - Afr Amer 84 mL/min (>60); Globulin 4.1 g/dL (2.2-4.2); Glucose 305 mg/dL (74-106); Lipase 55 U/L (13-75); Potassium 3.9 mmol/L (3.5-5.1); Protein, Total 7.4 g/dL (6.4-8.2); Sodium Level 135 mmol/L (136-145); Troponin-I HS < 3 pg/mL (3.0-54.0)
[2024-01-05 15:25] VITALS: BP 110/72; PULSE 90; RESP 22; O2SAT 97
[2024-01-05] MEDS: Mag Hydrox/Al Hydrox/Simeth 30 ML UDC PO (15:53)
[2024-01-05] MEDS: Ketorolac 15 MG/ML Vial IV (15:55)
[2024-01-05] MEDS: Famotidine 200 MG/20 ML MDV 20 MG in 0.9% Normal Saline (Pres. free 8 ML 300 MG IV (15:55)
[2024-01-05 16:51] VITALS: BP 118/69; PULSE 93; RESP 20; TEMP 36.8; O2SAT 97
== END 2024-01-05 16:52 | disposition home or self-care (01) ==
PROVIDERS: Physician Assistant; Emergency Provider Emergency Medicine; PCP Nurse Practitioner Family; Visit Provider Emergency Medicine
DX: R10.13 Epigastric pain (principal); I11.0 Hypertensive heart disease with heart failure; I50.32 Chronic diastolic (congestive) heart failure; K86.1 Other chronic pancreatitis; G40.909 Epilepsy, unspecified, not intractable, without status epilepticus; Z79.4 Long term (current) use of insulin; E11.65 Type 2 diabetes mellitus with hyperglycemia; R11.0 Nausea; I81 Portal vein thrombosis; Z79.01 Long term (current) use of anticoagulants; Z86.73 Personal history of transient ischemic attack (TIA), and cerebral infarction without residual deficits; E78.5 Hyperlipidemia, unspecified; Z79.899 Other long term (current) drug therapy; F41.9 Anxiety disorder, unspecified; F32.A Depression, unspecified; K21.9 Gastro-esophageal reflux disease without esophagitis; Z90.49 Acquired absence of other specified parts of digestive tract; Z90.710 Acquired absence of both cervix and uterus; F17.290 Nicotine dependence, other tobacco product, uncomplicated
CPT/HCPCS: 36591; 80053; 83690; 84484; 85025; 93005; 99285; A4216; J2405; J3490

== ENCOUNTER 2024-01-24 13:31 | Emergency (ER) | payer MEDICARE, SELFPAY ==
[2024-01-24 13:32] VITALS: BP 130/90; PULSE 119; PULSE 121; RESP 14; TEMP 36.1; O2SAT 96; O2SAT 97; BMI 43.2
--- NOTE | 2024-01-24 14:28 | ED.VIS.GI ---
HPI HPI - GI History of Present Illness Chief Complaint: Abd Pain Informant: patient Abdominal Pain/Flank Pain Onset: Today Context: Sudden Onset Timing: Continuous Quality: Aching, Sharp and Stabbing Location: Epigastric and RUQ Worsened by: Food Relieved by: Nothing Nausea/Vomiting/Emesis GI Symptom: Positive for Nausea and Vomiting (Dry heaves) Quality: Negative for Nonbilious, Blood streaks, Coffee ground or Hematemesis Diarrhea/Melena/Hematochezia GI Symptom: Positive for Diarrhea; Negative for Melena or Hematochezia Associated Symptoms Associated Symptoms: Negative for Dysuria, Frequency or Hematuria Narrative Narrative: Patient presents with abdominal pain that began this morning. Patient states she ate breakfast and her pain began soon after that. Patient states her pain is over the epigastric area and radiates to the right upper quadrant. Patient admits to some nausea and dry heaves. Patient denies any hematemesis or coffee-ground emesis. Patient states she has had diarrhea for the past few days. Patient denies any melena or hematochezia. Patient denies any urinary complaints. [facility] Medical History Anxiety Chronic constipation Chronic diastolic HF (heart failure) Depression DVT (deep venous thrombosis) Epilepsy Factor V Leiden mutation Former smoker GERD (gastroesophageal reflux disease) History of CVA (cerebrovascular accident) History of pulmonary embolus (PE) Hyperlipidemia Hypertension Pancreatitis Presence of IVC filter Seizure disorder Stroke/cerebrovascular accident Substance abuse Vitamin D deficiency Home Medications furosemide 40 mg tablet 40 mg PO DAILY water pill 09/10/16 [History Last Taken 08/17/23] potassium chloride 10 mEq tablet,extended release(part/cryst) 20 meq PO TID supplment 09/10/16 [History Last Taken 08/17/23] valacyclovir 500 mg tablet (Valtrex) 500 mg PO DAILY herpes 10/25/18 [History Last Taken 08/17/23] linaclotide 290 mcg capsule (Linzess) 290 mcg PO DAILY bowels 05/28/21 [History Last Taken 08/17/23] methenamine hippurate 1 gram tablet (Hiprex) 1 g PO QHS bladder infections 12/03/21 [History Last Taken 08/16/23] venlafaxine 150 mg capsule,extended release 24 hr (Effexor XR) 225 mg PO QHS mood 12/03/21 [History Last Taken 08/17/23] cholecalciferol (vitamin D3) 1,250 mcg (50,000 unit) capsule 50,000 unit PO FR supplement 02/05/23 [History Last Taken 08/12/23] omeprazole 40 mg capsule,delayed release 40 mg PO BID 02/23/23 [History Last Taken 08/17/23] fenofibrate nanocrystallized 145 mg tablet 145 mg PO QHS 05/07/23 [History Last Taken 08/16/23] aripiprazole 10 mg tablet 10 mg PO DAILY MOOD 06/23/23 [History Last Taken 08/17/23] benztropine 0.5 mg tablet 0.5 mg PO BID 06/23/23 [History Last Taken 07/21/23] divalproex 250 mg tablet,delayed release 250 mg PO Q12H 06/23/23 [History Last Taken 08/17/23] clonidine HCl 0.2 mg tablet 0.2 mg PO DAILY 07/22/23 [History Last Taken 08/17/23] metoprolol succinate 25 mg tablet,extended release 24 hr 25 mg PO DAILY 07/22/23 [History Last Taken 08/17/23] melatonin 10 mg tablet 5 mg PO QHS PRN sleep 08/17/23 [History Last Taken Unknown] pen needle, diabetic 31 gauge x 1/3 #100 ea 08/18/23 [Rx Last Taken Unknown] promethazine 25 mg tablet 25 mg PO TID PRN nausea and vomiting 7 days #21 tabs 10/23/23 [Rx Last Taken Unknown] doxepin 3 mg tablet 3 mg PO QHS #30 tabs 01/19/24 [Rx Last Taken Unknown] enoxaparin 100 mg/mL subcutaneous syringe mg subcut 01/19/24 [History Last Taken Unknown] glipizide 10 mg tablet, extended release 24 hr 10 mg PO QDAY 01/19/24 [History Last Taken Unknown] hydroxyzine HCl 25 mg tablet 25 mg PO BID PRN anxiety #60 tabs 01/19/24 [Rx Last Taken Unknown] insulin aspart U-100 100 unit/mL (3 mL) subcutaneous pen (Novolog FlexPen U-100 Insulin aspart) subcut 01/19/24 [History Last Taken Unknown] venlafaxine 75 mg capsule,extended release 24 hr 75 mg PO QDAY 01/19/24 [History Last Taken Unknown] hydrocodone-acetaminophen 5-325mg 5mg-325mg 1 tab PO Q6H PRN PRN Pain 3 days #10 TABLETS 01/24/24 [Rx Last Taken Unknown] Allergy/AdvReac Type Severity Reaction Status Date / Time gabapentin [From Neurontin] Allergy Rash Verified 01/24/24 13:32 Penicillins Allergy Rash Verified 01/24/24 13:32 Sulfa (Sulfonamide Allergy Rash Verified 01/24/24 13:32 Antibiotics) Family History Mother Hypertension Hyperlipidemia Father Heart disease Surgical History H/O: History of appendectomy History of embolic filter insertion History of hysterectomy Hx of cholecystectomy Social History household members: none Smoking Status: Current every day smoker tobacco type: e-cigarettes alcohol intake: former substance use type: marijuana ROS ROS ED Constitutional Constitutional ED: Denies chills or fever(s) Eyes Eyes: Denies blurry vision or change in vision ENT ENT ED: Denies rhinorrhea or sore throat Cardiovascular Cardiovascular: Denies chest pain or palpitations Respiratory/Chest Respiratory/Chest: Denies cough or dyspnea Gastrointestinal Gastrointestinal: Reports abdominal pain, diarrhea and nausea Genitourinary Genitourinary ED: Denies dysuria or hematuria Musculoskeletal Musculoskeletal: Denies back pain or neck pain Integumentary Denies abscess or rash Neurologic Neurologic: Denies headache(s) or weakness Allergic/Immunologic Allergic/Immunologic ED: Denies mouth swelling or urticaria EXAM Physical Exam Const Vital Signs: 01/24/24 13:32 01/24/24 13:32 01/24/24 15:31 Temperature 96.9 F L Temperature Source Temporal Pulse Rate 121 H 119 H 78 Respiratory Rate 14 14 16 Blood Pressure 130/90 H 130/90 H 138/76 H Blood Pressure Mean 103 103 96 Pulse Ox 96 97 98 Oxygen Delivery Method Room Air Room Air Room Air 01/24/24 17:00 01/24/24 18:58 Temperature 97.8 F Temperature Source Pulse Rate 64 89 Respiratory Rate 16 16 Blood Pressure 138/76 H 128/76 H Blood Pressure Mean 96 93 Pulse Ox 99 98 Oxygen Delivery Method Room Air Positive well nourished, well developed and obese General Appearance ED: well developed and NAD Nutritional Appearance: obese HEENT Reports moist mucous membranes Neck supple and no JVD Resp normal respiratory effort and clear to auscultation bilaterally Cardio regular rhythm Rate: tachycardic GI non-distended Palpation: soft and tender epigastric, LUQ and RUQ; Negative for guarding or rebound tenderness present Extremity full ROM Neuro CN's II-XII intact bilaterally, moves all extremities and no sensory deficits noted Sensorium / Orientation: alert Motor Exam: strength 5/5 throughout Psych mental status grossly normal and thought process normal MDM MDM MDM Narrative Medical decision making narrative: Differential diagnosis includes gastritis, peptic ulcer disease, pancreatitis, pyelonephritis, bowel obstruction, perforation, and dehydration. CT scan of the abdomen and pelvis will be obtained to assess for bowel obstruction, perforation, pancreatitis. CBC will be obtained to assess for leukocytosis and anemia. Comprehensive metabolic profile will be obtained to assess for hepatic function, renal function, and electrolyte abnormality. Urinalysis will be obtained to assess for urinary tract infection and hematuria. Lab Data Attestation: I reviewed the patient's lab results. Lab results narrative: CBC was reviewed and was within normal limits. Comprehensive metabolic profile was reviewed and was essentially within normal limits. AST was slightly elevated at 57 and ALT was slightly elevated at 78. Lipase was reviewed and was minimally elevated at 76. Urinalysis was reviewed. There is no evidence of urinary tract infection or hematuria. Labs: Laboratory Results - last 24 hr 01/24/24 15:20 WBC 11.0 RBC 4.24 Hgb 12.3 Hct 38.4 MCV 90.6 MCH 29.0 MCHC 32.0 RDW Std Deviation 43.8 RDW Coeff of Megan 13.4 Plt Count 338 MPV 8.8 Immature Gran % (Auto) 0.700 Neut % (Auto) 80.6 H Lymph % (Auto) 12.3 L Jay % (Auto) 5.1 Eos % (Auto) 0.8 Baso % (Auto) 0.5 Absolute Neuts (auto) 8.9 H Absolute Lymphs (auto) 1.36 Nucleated RBC % 0 Sodium 135 L Potassium 3.9 Chloride 106 Carbon Dioxide 21.0 Anion Gap 8 BUN 13 Creatinine 0.78 Estim Creat Clear Calc 104.35 Est GFR (MDRD) Af Amer 101 Est GFR (MDRD) Non-Af 84 BUN/Creatinine Ratio 16.7 Glucose 120 H Calcium 8.6 Total Bilirubin 0.20 AST 57 H ALT 78 H Alkaline Phosphatase 103 Total Protein 7.3 Albumin 3.5 Globulin 3.8 Albumin/Globulin Ratio 0.9 Lipase 76 H Urine Color Yellow Urine Clarity Clear Urine pH 8.0 Ur Specific Marcella 1.030 Urine Protein Negative Urine Glucose (UA) Normal Urine Ketones Negative Urine Occult Blood Negative Urine Nitrite Negative Urine Bilirubin Negative Urine Urobilinogen Normal Ur Leukocyte Esterase Negative Urine RBC 0 SEEN Urine WBC 0 SEEN Ur Squamous Epith Cells 0-5 SEEN Amorphous Sediment 1+ Urine Bacteria 0 SEEN Urine Mucus 0 SEEN Radiography Diagnostic Testing: Clinical Impression(s) from Imaging Studies Abdomen/Pelvis CT 01/24/24 14:57 IMPRESSION: 1. Inflammation inferior to the head of pancreas possibly due to pancreatitis. No fluid collections. 2. Inferior vena cava filter that is questionably fractured. 3. Fluid-filled loops of small bowel which may represent mild enteritis. Electronically Signed: Isauro Mcneal MD at 16:58 EDT , CT scan of the abdomen and pelvis was obtained. There is some inflammation inferior to the head of the pancreas. There is no evidence of any abscess or pseudocyst. There are fluid-filled loops of small bowel which may represent mild enteritis. This was interpreted by the radiologist was also independently reviewed by myself. Treatment and Re-Evaluation :: Patient was given IV fluids, morphine, and Zofran. Patient was given a repeat dose of morphine. Patient was advised of her findings. Patient states that Dilaudid works better for her pain. Patient was given a dose of 0.5 mg of Dilaudid prior to discharge. Patient was instructed to start with a liquid diet and advance as tolerated. Patient was instructed to follow-up with her primary care physician in 5 to 7 days. Patient was instructed to return if worse in any way. Patient understood and was agreeable with the plan. All questions were answered. Discharge Plan Triage Chief Complaint: Abd Pain ED Provider: John Brown Dx/Rx/DC Orders Clinical Impression: Chronic pancreatitis, Morbid obesity with BMI of 40.0-44.9, adult, History of drug abuse Instructions: ED Pancreatitis Prescriptions: New hydrocodone-acetaminophen [hydrocodone-acetaminophen] 5-325 mg tablet 1 tab PO Q6H PRN PRN (Reason: Pain) 3 Days Qty: 10 0RF No Action omeprazole 40 mg capsule,delayed release(DR/EC) 40 mg PO BID insulin aspart U-100 [Novolog FlexPen U-100 Insulin] 100 unit/mL (3 mL) insulin pen subcut glipizide 10 mg tablet extended release 24hr 10 mg PO QDAY enoxaparin 100 mg/mL syringe subcut venlafaxine 75 mg capsule,extended release 24hr 75 mg PO QDAY doxepin 3 mg tablet 3 mg PO QHS Qty: 30 1RF hydroxyzine HCl 25 mg tablet 25 mg PO BID PRN (Reason: anxiety) Qty: 60 1RF furosemide 40 MG tablet 40 mg PO DAILY potassium chloride 10 MEQ tablet 20 meq PO TID valacyclovir [Valtrex] 500 MG tablet 500 mg PO DAILY Linzess 290 mcg capsule 290 mcg PO DAILY methenamine hippurate [Hiprex] 1 gram Tablet 1 g PO QHS venlafaxine [Effexor XR] 150 mg Capsule,Extended Release 24hr 225 mg PO QHS cholecalciferol (vitamin D3) 1,250 mcg (50,000 unit) capsule 50,000 unit PO FR aripiprazole 10 mg tablet 10 mg PO DAILY benztropine 0.5 mg tablet 0.5 mg PO BID divalproex 250 mg tablet,delayed release (DR/EC) 250 mg PO Q12H clonidine HCl 0.2 mg tablet 0.2 mg PO DAILY metoprolol succinate 25 mg tablet extended release 24 hr 25 mg PO DAILY promethazine 25 mg tablet 25 mg PO TID PRN (Reason: nausea and vomiting) 7 Days Qty: 21 0RF fenofibrate nanocrystallized 145 mg tablet 145 mg PO QHS melatonin 10 mg tablet 5 mg PO QHS PRN (Reason: sleep) (DME) pen needle, diabetic 31 gauge x 1/3 needle See Rx Instructions .Route Qty: 100 0RF Rx Instructions: As directed Primary Care Provider: Rin Rivera NP Referrals: Rin Rivera NP, ACUTE CARE REGISTERED NURSE-C [Primary Care Provider] - 3-5 Days Disposition Disposition: Home, Self Care Discharge Date/Time: 01/24/24 18:59
--- NOTE | 2024-01-24 14:57 | CT_ITS ---
EXAM: CT ABDOMEN AND PELVIS WITH INTRAVENOUS CONTRAST CLINICAL INDICATION: Abdominal pain -- IV PO Contrast TECHNIQUE: Helically acquired images were obtained of the abdomen and pelvis with intravenous contrast. This CT exam was performed using one or more of the following dose reduction techniques: automated exposure control, adjustment of the mA and/or kV according to patient size, and/or use of iterative reconstruction technique. CONTRAST: Oral and amp; IV Gastrografin and amp; 100mL Isovue-300 COMPARISON: No relevant prior studies available. FINDINGS: LOWER THORAX: Unremarkable. Lung bases are clear. No cardiomegaly. No significant pericardial effusion. ABDOMEN: LIVER: The liver is diffusely decreased in attenuation compatible with fatty infiltration. GALLBLADDER AND BILE DUCTS: There are surgical clips from a cholecystectomy. No intra- or extrahepatic biliary ductal dilation. PANCREAS: There are inflammatory changes inferior to the head of the pancreas possibly due to pancreatitis. No focal cystic or solid mass. SPLEEN: Unremarkable. Normal size without focal cystic or solid mass. ADRENALS: Unremarkable. No nodules. KIDNEYS AND URETERS: Unremarkable. Normal renal size and position. No hydronephrosis. STOMACH AND BOWEL: There are fluid-filled loops of small bowel which). No stomach or bowel distention. No focal inflammatory change. PELVIS: APPENDIX: No evidence of acute appendicitis. BLADDER: Unremarkable. REPRODUCTIVE: The patient status post hysterectomy. ABDOMEN and PELVIS: INTRAPERITONEAL SPACE: Unremarkable. No ascites or other fluid collection. No free air. BONES/JOINTS: See below. SOFT TISSUES: Unremarkable. No discrete abdominal or pelvic wall hernia. VASCULATURE: There is an inferior vena cava filter may be fractured. Abdominal aorta is non-dilated. LYMPH NODES: Unremarkable. No enlarged lymph nodes. CT/Abdomen/Pelvis WITH Contrast IMPRESSION: 1. Inflammation inferior to the head of pancreas possibly due to pancreatitis. No fluid collections. 2. Inferior vena cava filter that is questionably fractured. 3. Fluid-filled loops of small bowel which may represent mild enteritis. Electronically Signed: Isauro Mcneal MD at 16:58 EDT ,
[2024-01-24] MEDS: 0.9% Normal Saline (1000mL) 1,000 ML 1000 ML IV (15:24)
[2024-01-24] MEDS: Ondansetron 4 MG/2 ML Vial IV (15:24)
[2024-01-24] MEDS: Morphine 4 MG/ML Syringe IV ×2 (15:24→17:22)
[2024-01-24 15:31] VITALS: BP 138/76; PULSE 78; RESP 16; O2SAT 98
[2024-01-24 15:34] LABS: Bacteria 0 SEEN /hpf (None Seen); Red Blood Cells-Urine 0 SEEN /hpf (0-5); White Blood Cells 0 SEEN /hpf (0-5)
[2024-01-24 15:39] LABS: Absolute Lymphocyte Count 1.36 X10^3/uL (0.83-4.51); Absolute Neutrophil Count 8.9 X10^3/uL (2.0-7.7); Basophil# 0.06 X10^3/uL; Basophil% 0.5 % (0-1); Eosinophil# 0.09 X10^3/uL; Eosinophils% 0.8 % (0-5); Hematocrit 38.4 % (37-47); Hemoglobin 12.3 g/dL (12.0-15.0); Lymphocyte # 1.36 X10^3/ul (0.83-4.51); Lymphocyte % 12.3 % (19-41); Mean Corpuscular Volume 90.6 fL (81-99); Mean Platelet Vol. 8.8 fl (6.2-12.0); Monocyte# 0.56 X10^3/uL; Monocyte% 5.1 % (0-10); NRBC Flagged by Analyzer 0 % (0-5); Neutrophil # 8.88 X10^3/uL (2.7-7.7); Neutrophil % 80.6 % (47-70); Platelet Count 338 K/mm3 (150-450); RBC Distribution Width CV 13.4 % (11.6-14.6); RBC Distribution Width SD 43.8 fl (35.1-43.9); Red Blood Count 4.24 M/mm3 (4.2-5.4)
[2024-01-24 15:49] LABS: Color, Urine Yellow (Yellow); Glucose, Dipstick Normal (Normal); Ketone-Dipstick Negative (Negative); Leukocyte Esterase-Dipstick Negative /ul (Negative); Nitrite-Dipstick Negative (Negative); Occult Blood-Urine Negative /ul (Negative); Protein-Dipstick Negative (Negative); Urine Bilirubin Dipstick Negative (Negative); Urine Clarity Clear (Clear); Urine Urobilinogen Normal (Normal)
[2024-01-24 15:55] LABS: ALB/GLOB Ratio 0.9 RATIO (0.9-2.4); AST(SGOT) 57 U/L (15-37); Alanine Aminotransfer ALT/SGPT 78 U/L (13-56); Albumin, Serum 3.5 g/dL (3.2-5.0); Alkaline Phosphatase 103 U/L (45-117); Anion Gap 8 (5-15); BUN 13 mg/dL (7-18); BUN/Creat Ratio 16.7 RATIO (10-20); Calcium,Total 8.6 mg/dL (8.5-10.1); Chloride 106 mmol/L (98-107); Creatinine, Serum 0.78 mg/dL (0.55-1.02); EST Glomerular Filtration Rate 84 mL/min (>60); Est Glom Filt Rate - Afr Amer 101 mL/min (>60); Estimated Creatinine Clearance 104.35 ml/min; Globulin 3.8 g/dL (2.2-4.2); Glucose 120 mg/dL (74-106); Lipase 76 U/L (13-75); Potassium 3.9 mmol/L (3.5-5.1); Protein, Total 7.3 g/dL (6.4-8.2); Sodium Level 135 mmol/L (136-145)
[2024-01-24 16:12] LABS: Amorphous Sediment 1+; Squamous Epithelial Cells - UA 0-5 SEEN /hpf (5-10)
[2024-01-24 17:00] VITALS: BP 138/76; PULSE 64; RESP 16; O2SAT 99
[2024-01-24] MEDS: HYDROmorphone 0.5 MG/0.5 ML SYRINGE IV (18:42)
[2024-01-24 18:48] LABS: Mucous, Urine 0 SEEN /hpf (<or=2+)
[2024-01-24 18:58] VITALS: BP 128/76; PULSE 89; RESP 16; TEMP 36.6; O2SAT 98
== END 2024-01-24 18:59 | disposition home or self-care (01) ==
PROVIDERS: Emergency Provider Emergency Medicine; PCP Nurse Practitioner Family; Visit Provider Emergency Medicine
DX: K86.1 Other chronic pancreatitis (principal); I11.0 Hypertensive heart disease with heart failure; E66.01 Morbid (severe) obesity due to excess calories; Z68.41 Body mass index [BMI] 40.0-44.9, adult; Z86.73 Personal history of transient ischemic attack (TIA), and cerebral infarction without residual deficits; E78.5 Hyperlipidemia, unspecified; F32.A Depression, unspecified; K21.9 Gastro-esophageal reflux disease without esophagitis; F41.9 Anxiety disorder, unspecified; Z79.899 Other long term (current) drug therapy; Z90.49 Acquired absence of other specified parts of digestive tract; Z90.710 Acquired absence of both cervix and uterus; F17.290 Nicotine dependence, other tobacco product, uncomplicated
CPT/HCPCS: 99284; 36591; 74177; 80053; 81001; 83690; 85025; J7030; Q9967; A4216; J2405

== ENCOUNTER 2024-01-26 16:43 | Inpatient (IN) | payer MEDICARE, SELFPAY ==
[2024-01-26 16:43] VITALS: BP 145/122; PULSE 134; RESP 18; TEMP 36.1; O2SAT 98; BMI 42.5
--- NOTE | 2024-01-26 17:13 | ED.VIS.GI ---
HPI HPI - GI History of Present Illness Chief Complaint: Abd Pain Informant: patient Narrative Narrative: History of pancreatitis necrotizing pseudocyst with drainage 6 weeks ago. Diabetic. Seen 2 days ago for pain findings of pancreatitis. She went home on Vicodin has not helped. She is doing tomato soup. Increasing pain. Is unable to keep things down. She is followed by GI. She is currently on Lovenox injections due to findings of portal vein thrombosis 6 weeks ago. Prior to that was on Xarelto with DVTs and factor V Leiden history. Denies fevers. She is also developed diarrhea which she has had with her pancreatitis flares. Prior similar symptoms: Yes PFSH [facility] Medical History (Updated 01/26/24 @ 23:[address] Alphonso Steawrd, DO) Anxiety Chronic constipation Depression DVT (deep venous thrombosis) Epilepsy Factor V Leiden mutation GERD (gastroesophageal reflux disease) History of CVA (cerebrovascular accident) History of pulmonary embolus (PE) Hyperlipidemia Hypertension Pancreatitis Presence of IVC filter Seizure disorder Smoker Stroke/cerebrovascular accident Substance abuse Vitamin D deficiency Home Medications furosemide 40 mg tablet 40 mg PO DAILY water pill 09/10/16 [History Last Taken 08/17/23] valacyclovir 500 mg tablet (Valtrex) 500 mg PO DAILY herpes 10/25/18 [History Last Taken 08/17/23] linaclotide 290 mcg capsule (Linzess) 290 mcg PO DAILY bowels 05/28/21 [History Last Taken 08/17/23] methenamine hippurate 1 gram tablet (Hiprex) 1 g PO QHS bladder infections 12/03/21 [History Last Taken 08/16/23] venlafaxine 150 mg capsule,extended release 24 hr (Effexor XR) 150 mg PO QHS mood 12/03/21 [History Last Taken 08/17/23] cholecalciferol (vitamin D3) 1,250 mcg (50,000 unit) capsule 50,000 unit PO FR supplement 02/05/23 [History Last Taken 08/12/23] omeprazole 40 mg capsule,delayed release 40 mg PO BID 02/23/23 [History Last Taken 08/17/23] fenofibrate nanocrystallized 145 mg tablet 145 mg PO QHS 05/07/23 [History Last Taken 08/16/23] aripiprazole 10 mg tablet 10 mg PO DAILY MOOD 06/23/23 [History Last Taken 08/17/23] benztropine 0.5 mg tablet 0.5 mg PO BID 06/23/23 [History Last Taken 07/21/23] divalproex 250 mg tablet,delayed release 250 mg PO Q12H 06/23/23 [History Last Taken 08/17/23] clonidine HCl 0.2 mg tablet 0.2 mg PO QHS 07/22/23 [History Last Taken 08/17/23] metoprolol succinate 25 mg tablet,extended release 24 hr 25 mg PO DAILY 07/22/23 [History Last Taken 08/17/23] melatonin 10 mg tablet 5 mg PO QHS PRN sleep 08/17/23 [History Last Taken Unknown] pen needle, diabetic 31 gauge x 3 #100 ea 08/18/23 [Rx Last Taken Unknown] promethazine 25 mg tablet 25 mg PO TID PRN nausea and vomiting 7 days #21 tabs 10/23/23 [Rx Last Taken Unknown] enoxaparin 100 mg/mL subcutaneous syringe 100 mg subcut Q12H 01/19/24 [History Last Taken Unknown] glipizide 10 mg tablet, extended release 24 hr 10 mg PO QDAY 01/19/24 [History Last Taken Unknown] hydroxyzine HCl 25 mg tablet 25 mg PO BID PRN anxiety #60 tabs 01/19/24 [Rx Last Taken Unknown] insulin aspart U-100 100 unit/mL (3 mL) subcutaneous pen (Novolog FlexPen U-100 Insulin aspart) 18 unit subcut TID 01/19/24 [History Last Taken Unknown] venlafaxine 75 mg capsule,extended release 24 hr 75 mg PO QDAY 01/19/24 [History Last Taken Unknown] doxepin 10 mg capsule 10 mg PO QHS #30 caps 01/25/24 [Rx Last Taken Unknown] enoxaparin 100 mg/mL subcutaneous syringe (Lovenox) 100 mg subcut Q12H 01/26/24 [History Last Taken Unknown] insulin glargine U-300 conc 300 unit/mL (3 mL) subcutaneous pen (Toujeo Max U-300 SoloStar) 55 unit subcut DAILY 01/26/24 [History Last Taken Unknown] lactulose 10 gram/15 mL oral solution 15 ml PO BID PRN constipation 01/26/24 [History Last Taken Unknown] nitrofurantoin monohydrate/macrocrystals 100 mg capsule (Macrobid) 100 mg PO DAILY PRN after sex 01/26/24 [History Last Taken Unknown] potassium chloride 20 mEq tablet,extended release 20 meq PO TID 01/26/24 [History Last Taken Unknown] Allergy/AdvReac Type Severity Reaction Status Date / Time gabapentin [From Neurontin] Allergy Rash Verified 01/26/24 16:45 Penicillins Allergy Rash Verified 01/26/24 16:45 Sulfa (Sulfonamide Allergy Rash Verified 01/26/24 16:45 Antibiotics) Family History Mother Hypertension Hyperlipidemia Father Heart disease Surgical History H/O: History of appendectomy History of embolic filter insertion History of hysterectomy Hx of cholecystectomy Social History household members: none Smoking Status: Current every day smoker tobacco type: e-cigarettes alcohol intake: former substance use type: marijuana ROS ROS ED Constitutional Constitutional ED: Denies chills, fever(s) or sweats Eyes Eyes: Denies change in vision ENT ENT ED: Denies dysphagia or sore throat Cardiovascular Cardiovascular: Denies chest pain, leg edema, palpitations or racing heartbeat Respiratory/Chest Respiratory/Chest: Denies cough, dyspnea or dyspnea on exertion Gastrointestinal Gastrointestinal: Reports abdominal pain, diarrhea, nausea and vomiting Genitourinary Genitourinary ED: Denies dysuria, hematuria or urinary frequency Musculoskeletal Musculoskeletal: Denies back pain, extremity pain or neck pain Integumentary Denies rash or wounds Neurologic Neurologic: Denies headache(s), paresthesias or weakness EXAM Physical Exam Const Vital Signs: 01/26/24 16:43 01/26/24 18:43 01/26/24 20:00 Temperature 96.9 F L Temperature Source Temporal Pulse Rate 134 H 104 H 94 Respiratory Rate 18 19 H 21 H Blood Pressure 145/122 H 119/66 149/73 H Blood Pressure Mean 129 83 98 Pulse Ox 98 96 93 Oxygen Delivery Method Room Air Room Air Room Air Positive well nourished and well developed General Appearance ED: well developed and NAD HEENT Reports dry mucous membranes HEENT Narrative: Dry mucosal membrane sores on her lateral tongue with no bleeding. normocephalic and atraumatic Mouth ED: Yes dry mucous membranes Mouth: dry mucous membranes Eyes PERRL, EOMs intact bilaterally and conjunctivae normal General Eye ED: Yes normal appearance of both eyes Neck no lymphadenopathy and supple General: Negative for tenderness Chest Wall Chest: Negative for tenderness Resp normal respiratory effort and normal air movement Effort and Inspection: symmetric chest movement; Negative for respiratory distress Cardio regular rhythm and no murmurs Rate: tachycardic Peripheral Pulses: pulses 2+ throughout GI normal to inspection, nondistended, normoactive bowel sounds GI Narrative: Tender mid abdomen, no guarding or rebound. Palpation: Negative for guarding or rebound tenderness present Back/Spine no CVA tenderness and no thoracic nor lumbar tenderness Extremity normal to inspection General Extremety ED: Negative for edema or tenderness General Extremity: Negative for edema Neuro oriented x3 and no sensory deficits noted Sensorium / Orientation: awake and alert Skin no rashes or lesions noted and no wounds MDM MDM MDM Narrative Medical decision making narrative: Interventions / MDM: Differential diagnosis: Pancreatitis, dehydration, electrolyte abnormalities Diagnosis considered but do not suspect: N/A My EKG interpretation: N/A Imaging independently reviewed and interpreted by myself: N/A External documents reviewed: Visit from 2 days reviewed there was pancreatitis on the tail of her pancreas, slightly elevated lipase in the 70s. Test considered but not ordered:N/A ED course: History of pancreatitis diagnosed 2 days of worsening symptoms. Nonsurgical abdomen. Dry mucous membranes and tachycardia. IV established with repeat abdominal labs. Dilaudid Zofran fluids are ordered. 1900: Patient labs lipase down from 71-24 today. However liver enzymes elevated ALT 193 AST 114 alk phos 141. Bilirubin normal. Heart rate improved down to 104 from 130s. Pain was more controlled however still therapy additional pain medications. She has had choledocholithiasis biliary stent in the past. Review of her CT scan from 2 days ago did not have a dilated common bile duct. With elevated liver enzymes she was sent for an ultrasound for further evaluation. 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 Patient here 2 days ago with pancreatitis in the tail of the pancreas, worsening pain vomiting tachycardia and dehydration. Failing outpatient treatment. Will discuss with hospitalist for admission. I spoke with Dr. Fulton for admission. Re-evaluation: stable Disposition discussed with patient/family/significant other: Patient Case discussed with consulting clinician: Hospitalist This note was generated with [employer] dictation software. It may contain incorrect words, spelling, and punctuation that were not noted in checking the note before signing. Lab Data Attestation: I reviewed the patient's lab results. Labs: Laboratory Results - last 24 hr 01/26/24 17:50 WBC 11.2 H RBC 4.16 L Hgb 12.0 Hct 37.9 MCV 91.1 MCH 28.8 MCHC 31.7 L RDW Std Deviation 46.0 H RDW Coeff of Megan 13.6 Plt Count 328 MPV 8.7 Immature Gran % (Auto) 0.700 Neut % (Auto) 76.2 H Lymph % (Auto) 14.6 L [place] % (Auto) 6.4 Eos % (Auto) 1.7 Baso % (Auto) 0.4 Absolute Neuts (auto) 8.5 H Absolute Lymphs (auto) 1.64 Nucleated RBC % 0 Sodium 134 L Potassium 4.2 Chloride 106 Carbon Dioxide 23.0 Anion Gap 5 BUN 7 Creatinine 0.86 Estim Creat Clear Calc 93.67 Est GFR (MDRD) Af Amer 90 Est GFR (MDRD) Non-Af 75 BUN/Creatinine Ratio 8.2 L Glucose 116 H Hemoglobin A1c 7.1 H Calcium 9.4 Total Bilirubin 0.60 Direct Bilirubin 0.24 AST 114 H ALT 193 H Alkaline Phosphatase 141 H Total Protein 7.6 Albumin 3.2 Globulin 4.4 H Triglycerides 318 H Cholesterol 213 H LDL Cholesterol 123 VLDL Cholesterol 64 H HDL Cholesterol 26 L Lipase 24 Radiography Diagnostic Testing: Clinical Impression(s) from Imaging Studies Gallbladder Ultrasound 01/26/24 19:00 IMPRESSION: Hepatomegaly and nonspecific hepatocellular disease. Postop change status post cholecystectomy Nonvisualization of pancreas due to overlapping bowel gas. CT recommended if indicated Electronically Signed: Mason De La Rosa MD at 20:03 EDT , Discharge Plan Dx/Rx/DC Orders Clinical Impression: Elevated liver function tests, Chronic pancreatitis, Abdominal pain, Sinus tachycardia, Dehydration Disposition Disposition: [facility] Care [facility] Discharge Date/Time: 01/26/24 22:31
[2024-01-26] MEDS: Ondansetron 4 MG/2 ML Vial IV ×2 (17:57→23:44)
[2024-01-26] MEDS: 0.9% Normal Saline (1000mL) 1,000 ML 1000 ML IV (17:57)
[2024-01-26] MEDS: HYDROmorphone 1 MG/ML Syringe IV ×3 (17:57→23:49)
[2024-01-26 18:18] LABS: Absolute Lymphocyte Count 1.64 X10^3/uL (0.83-4.51); Absolute Neutrophil Count 8.5 X10^3/uL (2.0-7.7); Basophil# 0.05 X10^3/uL; Basophil% 0.4 % (0-1); Eosinophil# 0.19 X10^3/uL; Eosinophils% 1.7 % (0-5); Hematocrit 37.9 % (37-47); Lymphocyte # 1.64 X10^3/ul (0.83-4.51); Lymphocyte % 14.6 % (19-41); Mean Corp Hgb Conc 31.7 g/dL (32-36); Mean Corpuscular Hgb 28.8 pg (27.0-32.0); Mean Corpuscular Volume 91.1 fL (81-99); Mean Platelet Vol. 8.7 fl (6.2-12.0); Monocyte# 0.72 X10^3/uL; Monocyte% 6.4 % (0-10); NRBC Flagged by Analyzer 0 % (0-5); Neutrophil # 8.52 X10^3/uL (2.7-7.7); Neutrophil % 76.2 % (47-70); Platelet Count 328 K/mm3 (150-450); RBC Distribution Width CV 13.6 % (11.6-14.6); Red Blood Count 4.16 M/mm3 (4.2-5.4); White Blood Count 11.2 K/mm3 (4.4-11.0)
[2024-01-26 18:43] VITALS: BP 119/66; PULSE 104; RESP 19; O2SAT 96
[2024-01-26 18:49] LABS: AST(SGOT) 114 U/L (15-37); Alanine Aminotransfer ALT/SGPT 193 U/L (13-56); Albumin, Serum 3.2 g/dL (3.2-5.0); Alkaline Phosphatase 141 U/L (45-117); Anion Gap 5 (5-15); BUN 7 mg/dL (7-18); BUN/Creat Ratio 8.2 RATIO (10-20); Bilirubin, Direct 0.24 mg/dL (0.00-0.30); Calcium,Total 9.4 mg/dL (8.5-10.1); Chloride 106 mmol/L (98-107); Creatinine, Serum 0.86 mg/dL (0.55-1.02); EST Glomerular Filtration Rate 75 mL/min (>60); Est Glom Filt Rate - Afr Amer 90 mL/min (>60); Estimated Creatinine Clearance 93.67 ml/min; Globulin 4.4 g/dL (2.2-4.2); Glucose 116 mg/dL (74-106); Lipase 24 U/L (13-75); Potassium 4.2 mmol/L (3.5-5.1); Protein, Total 7.6 g/dL (6.4-8.2); Sodium Level 134 mmol/L (136-145)
--- NOTE | 2024-01-26 19:00 | US_ITS ---
STUDY: ABDOMINAL ULTRASOUND - RIGHT UPPER QUADRANT REASON FOR VISIT: Female, 48 years old abdominal pain -- elevated liver enzymes. hx of cholecystectomy TECHNIQUE: Ultrasound evaluation of the right upper quadrant was performed with real-time and static leos-scale imaging. TECHNICAL QUALITY: Adequate. COMPARISON: None. FINDINGS: Liver: The liver measures 25 cm. There is heterogeneous echogenicity of the liver. The bile ducts are within normal limits. There is hepatic color flow. The direction of portal flow is hepatopetal. There is no demonstrated mass lesion. Gallbladder: Gallbladder has been removed surgically Common Bile Duct (C.B.D.): The common bile duct was not visualized. Pancreas: Nonvisualized due to bowel gas producing artifact Right Kidney: Normal size of the right kidney. The right kidney measures 11.3 x 6.2 x 5.1 cm. Normal renal cortex. The right cortex measures 1.2 cm. There is no demonstrated renal mass or cyst. There is no right hydronephrosis. US/Gallbladder IMPRESSION: Hepatomegaly and nonspecific hepatocellular disease. Postop change status post cholecystectomy Nonvisualization of pancreas due to overlapping bowel gas. CT recommended if indicated Electronically Signed: Mason De La Rosa MD at 20:03 EDT ,
--- NOTE | 2024-01-26 19:53 | PCM.HP.STD ---
[facility] - General General Date of Admission: 01/26/24 Date of Service: 01/26/24 Chief Complaint: Abdominal Pain with Nausea and Vomiting. [facility] Narrative DOROTHEA CLARK, is a 48 F with a past medical history of essential hypertension, hyperlipidemia, morbid obesity; with BMI of 42.5 this admission, history of alcohol abuse (quit 2013); with chronic pancreatitis, history of polysubstance abuse (quit 2013), history of cholecystectomy, DM-2; of unknown control, chronic diastolic CHF, history of DVT/PE; in the setting of known factor V Leiden with history of IVC filter placement, history of CVA, seizure disorder; on divalproex, history of herpes; on chronic Valtrex, GERD, depression with anxiety, history of cellulitis of the face, history of COVID-19 and recently diagnosed pancreatitis with necrotizing pseudocyst with drainage approximately 6 weeks ago at [facility], history of portal vein thrombosis in the setting of known factor V Leiden disorder switched from Xarelto to full-dose Lovenox ~6 weeks ago followed by a recent visit to this ER 2 days ago for findings of pancreatitis who re-presents to [facility] ER once again complaining of abdominal pain with intractable nausea and vomiting. reports she was sent home 2 days ago from the ER on oral Vicodin as needed which has not helped her symptoms as she has had increasing pain and is unable to keep down solids or liquids. She also admits to non-bloody diarrhea which usually accompanies her pancreatitis flares. She denies associated fever, chills, chest pain, shortness of breath or constipation but she does admit to dehydration with poor oral intake due to frequent bouts of nausea and vomiting. In the ER she underwent gallbladder ultrasound which revealed hepatomegaly and nonspecific hepatocellular disease with postoperative changes consistent with previous cholecystectomy and nonvisualization of CBD and pancreas due to overlapping bowel gas with alternative follow-up imaging recommended with a normal serum lipase of 24 units/L and laboratory evidence of mild transaminitis with AST of 114 units/L, ALT of 193 units/L and alkaline phosphatase of 141 units/L and she was then admitted to the general medical floor for ongoing care for stay that is expected to be greater than 2 midnights. [facility] Medical History Anxiety Chronic constipation Depression DVT (deep venous thrombosis) Epilepsy Factor V Leiden mutation GERD (gastroesophageal reflux disease) History of CVA (cerebrovascular accident) History of pulmonary embolus (PE) Hyperlipidemia Hypertension Pancreatitis Presence of IVC filter Seizure disorder Smoker Stroke/cerebrovascular accident Substance abuse Vitamin D deficiency Home Medications furosemide 40 mg tablet 40 mg PO DAILY water pill 09/10/16 [History Last Taken 08/17/23] valacyclovir 500 mg tablet (Valtrex) 500 mg PO DAILY herpes 10/25/18 [History Last Taken 08/17/23] linaclotide 290 mcg capsule (Linzess) 290 mcg PO DAILY bowels 05/28/21 [History Last Taken 08/17/23] methenamine hippurate 1 gram tablet (Hiprex) 1 g PO QHS bladder infections 12/03/21 [History Last Taken 08/16/23] venlafaxine 150 mg capsule,extended release 24 hr (Effexor XR) 150 mg PO QHS mood 12/03/21 [History Last Taken 08/17/23] cholecalciferol (vitamin D3) 1,250 mcg (50,000 unit) capsule 50,000 unit PO FR supplement 02/05/23 [History Last Taken 08/12/23] omeprazole 40 mg capsule,delayed release 40 mg PO BID 02/23/23 [History Last Taken 08/17/23] fenofibrate nanocrystallized 145 mg tablet 145 mg PO QHS 05/07/23 [History Last Taken 08/16/23] aripiprazole 10 mg tablet 10 mg PO DAILY MOOD 06/23/23 [History Last Taken 08/17/23] benztropine 0.5 mg tablet 0.5 mg PO BID 06/23/23 [History Last Taken 07/21/23] divalproex 250 mg tablet,delayed release 250 mg PO Q12H 06/23/23 [History Last Taken 08/17/23] clonidine HCl 0.2 mg tablet 0.2 mg PO QHS 07/22/23 [History Last Taken 08/17/23] metoprolol succinate 25 mg tablet,extended release 24 hr 25 mg PO DAILY 07/22/23 [History Last Taken 08/17/23] melatonin 10 mg tablet 5 mg PO QHS PRN sleep 08/17/23 [History Last Taken Unknown] pen needle, diabetic 31 gauge x 1/3 #100 ea 08/18/23 [Rx Last Taken Unknown] promethazine 25 mg tablet 25 mg PO TID PRN nausea and vomiting 7 days #21 tabs 10/23/23 [Rx Last Taken Unknown] enoxaparin 100 mg/mL subcutaneous syringe 100 mg subcut Q12H 01/19/24 [History Last Taken Unknown] glipizide 10 mg tablet, extended release 24 hr 10 mg PO QDAY 01/19/24 [History Last Taken Unknown] hydroxyzine HCl 25 mg tablet 25 mg PO BID PRN anxiety #60 tabs 01/19/24 [Rx Last Taken Unknown] insulin aspart U-100 100 unit/mL (3 mL) subcutaneous pen (Novolog FlexPen U-100 Insulin aspart) 18 unit subcut TID 01/19/24 [History Last Taken Unknown] venlafaxine 75 mg capsule,extended release 24 hr 75 mg PO QDAY 01/19/24 [History Last Taken Unknown] doxepin 10 mg capsule 10 mg PO QHS #30 caps 01/25/24 [Rx Last Taken Unknown] enoxaparin 100 mg/mL subcutaneous syringe (Lovenox) 100 mg subcut Q12H 01/26/24 [History Last Taken Unknown] insulin glargine U-300 conc 300 unit/mL (3 mL) subcutaneous pen (Toujeo Max U-300 SoloStar) 55 unit subcut DAILY 01/26/24 [History Last Taken Unknown] lactulose 10 gram/15 mL oral solution 15 ml PO BID PRN constipation 01/26/24 [History Last Taken Unknown] nitrofurantoin monohydrate/macrocrystals 100 mg capsule (Macrobid) 100 mg PO DAILY PRN after sex 01/26/24 [History Last Taken Unknown] potassium chloride 20 mEq tablet,extended release 20 meq PO TID 01/26/24 [History Last Taken Unknown] Allergy/AdvReac Type Severity Reaction Status Date / Time gabapentin [From Neurontin] Allergy Rash Verified 01/26/24 16:45 Penicillins Allergy Rash Verified 01/26/24 16:45 Sulfa (Sulfonamide Allergy Rash Verified 01/26/24 16:45 Antibiotics) Family History Mother Hypertension Hyperlipidemia Father Heart disease Surgical History H/O: History of appendectomy History of embolic filter insertion History of hysterectomy Hx of cholecystectomy Social History household members: none Smoking Status: Current every day smoker tobacco type: e-cigarettes alcohol intake: former substance use type: marijuana ROS ROS Narrative Review of systems: General: Patient denies fever or chills. HENT: Denies headache, denies stuffy nose, denies sore throat EYES: Denies changes in vision or discharge from eyes. Resp: Denies cough, denies shortness of breath Cardiac: Denies chest pain, palpitations or heart racing. GI: Patient admits to severe abdominal pain with nausea, bilious emesis and nonbloody diarrhea as per HPI. : Denies changes in urination Extremity: Denies swelling Musculoskeletal: Feels somewhat generally weak and unwell but denies arthralgias or myalgias. Neuro: Patient denies headache, paresthesias or focal neurologic weakness. Heme: Denies any bleeding or bruising Skin: Denies rashes Psychiatric: No complaints voiced related to uncontrolled depression or anxiety. Endocrine: No polyuria, polydipsia or polyphagia. The rest of the 14 point ROS was negative except for positives in HPI. Vital Signs Vital Signs Vital Signs: 01/26/24 16:43 01/26/24 18:43 Temperature 96.9 F L Temperature Source Temporal Pulse Rate 134 H 104 H Respiratory Rate 18 19 H Blood Pressure 145/122 H 119/66 Blood Pressure Mean 129 83 Pulse Ox 98 96 Oxygen Delivery Method Room Air Room Air Weight Weight: 240 lb Body Mass Index (BMI) 42.5 Physical Exam Const alert and oriented x3 Constitutional Narrative: Patient appears to be in mild distress and is morbidly obese. General Appearance: cooperative HEENT normocephalic, head/scalp atraumatic and hearing grossly normal bilaterally HEENT Narrative: Mucous membranes dry. Eyes PERRL and EOMs intact bilaterally Neck no lymphadenopathy and supple Resp normal respiratory effort, no retractions, no use of accessory muscles and clear to auscultation bilaterally Cardio regular rate and regular rhythm GI normal to inspection, nondistended, normoactive bowel sounds, soft to palpation and non-distended GI Narrative: Mild tenderness to palpation over the epigastrium. Extremity normal to inspection, full ROM and no clubbing, cyanosis or edema Skin Skin Narrative: Patient has no evidence of jaundice or rash. Neuro oriented x3, CN's II-XII intact bilaterally, moves all extremities and no focal motor deficits Sensorium / Orientation: awake, alert, oriented to person, oriented to place and oriented to time Speech: speech normal Psych affect normal Results Medical Records Data Attestation: I reviewed the patient's medical records Lab / Micro Data Attestation: I reviewed the patient's lab results. 01/26/24 17:50 01/26/24 17:50 Labs: Laboratory Results - last 24 hr 01/26/24 17:50: WBC 11.2 H, RBC 4.16 L, Hgb 12.0, Hct 37.9, MCV 91.1, MCH 28.8, MCHC 31.7 L, RDW Std Deviation 46.0 H, RDW Coeff of Megan 13.6, Plt Count 328, MPV 8.7, Immature Gran % (Auto) 0.700, Neut % (Auto) 76.2 H, Lymph % (Auto) 14.6 L, Tate % (Auto) 6.4, Eos % (Auto) 1.7, Baso % (Auto) 0.4, Absolute Neuts (auto) 8.5 H, Absolute Lymphs (auto) 1.64, Nucleated RBC % 0, Sodium 134 L, Potassium 4.2, Chloride 106, Carbon Dioxide 23.0, Anion Gap 5, BUN 7, Creatinine 0.86, Estim Creat Clear Calc 93.67, Est GFR (MDRD) Af Amer 90, Est GFR (MDRD) Non-Af 75, BUN/Creatinine Ratio 8.2 L, Glucose 116 H, Calcium 9.4, Total Bilirubin 0.60, Direct Bilirubin 0.24, AST 114 H, ALT 193 H, Alkaline Phosphatase 141 H, Total Protein 7.6, Albumin 3.2, Globulin 4.4 H, Lipase 24 Imaging [facility] Imaging Services [address] [place] [address] Gallbladder MR#: [id number] Acct: [id number] Name: DOROTHEA CLARK Rep #: [id number] : 1975 F 48 From: Mason De La Rosa MD PCP: AMIE Gardner Status: REG ER Study: Gallbladder Date of Exam: 01/26/24 Exam# [id number] Ordering Dr: Alphonso Steward DO STUDY: ABDOMINAL ULTRASOUND - RIGHT UPPER QUADRANT REASON FOR VISIT: Female, 48 years old abdominal pain -- elevated liver enzymes. hx of cholecystectomy TECHNIQUE: Ultrasound evaluation of the right upper quadrant was performed with real-time and static leos-scale imaging. TECHNICAL QUALITY: Adequate. COMPARISON: None. FINDINGS: Liver: The liver measures 25 cm. There is heterogeneous echogenicity of the liver. The bile ducts are within normal limits. There is hepatic color flow. The direction of portal flow is hepatopetal. There is no demonstrated mass lesion. Gallbladder: Gallbladder has been removed surgically Common Bile Duct (C.B.D.): The common bile duct was not visualized. Pancreas: Nonvisualized due to bowel gas producing artifact Right Kidney: Normal size of the right kidney. The right kidney measures 11.3 x 6.2 x 5.1 cm. Normal renal cortex. The right cortex measures 1.2 cm. There is no demonstrated renal mass or cyst. There is no right hydronephrosis. US/Gallbladder IMPRESSION: Hepatomegaly and nonspecific hepatocellular disease. Postop change status post cholecystectomy Nonvisualization of pancreas due to overlapping bowel gas. CT recommended if indicated Electronically Signed: Mason De La Rosa MD at 20:03 EDT , CC: AMIE Rivera; Dr. Alphonso Steward DO ~ Director [employer]: Signed Assessment & Plan Assessment/Plan (1) Acute on chronic pancreatitis: (2) Transaminitis: (3) Abdominal pain: QUALIFIERS: Abdominal location: unspecified location Qualified Code(s): R10.9 - Unspecified abdominal pain (4) Intractable nausea and vomiting: (5) Diarrhea: QUALIFIERS: Diarrhea type: unspecified type Qualified Code(s): R19.7 - Diarrhea, unspecified (6) Dehydration: (7) History of drug abuse: (8) History of alcohol abuse: PLAN: Plan 1. [id number] Pancreatitis with mild transaminitis and recent visit to the ER here 2 days ago for similar but less severe symptoms refractory to treatment with prn oral Vicodin and Zofran ODT - Admit to general medical floor. Give Protonix 40 mg IV daily plus aggressively volume resuscitate. Keep strict n.p.o. except for ice chips, sips and medications. Give IV Toradol as needed for [id number] (level 1-5/10) pain or fever. Give IV Dilaudid as needed for severe (level 6-10 out of 10) pain. Check lipid profile to ensure triglyceride level is not abnormally elevated as a possible cause or contributing factor to her recurrent pancreatitis. Given patient's history of alcohol abuse and polysubstance abuse and previous cholecystectomy we will screen check blood alcohol concentration and urine drug screen to help answer the question of the all potential reasons behind her recurrent pancreatitis in spite of aggressive and appropriate treatment. Finally, we check MRCP in the a.m. and we will also consult Dr. Mello of gastroenterology to see this patient on rounds in the a.m. for further recommendations with help appreciated in advance. 2. Intractable Nausea and Vomiting with Dehydration plus non-bloody diarrhea due to #1 - Continue aggressive volume resuscitation plus give IV Zofran as needed as a first-line agent against nausea vomiting. We will give Phenergan IM as needed for breakthrough nausea vomiting plus we will place scopolamine patch. Finally we will check stool studies to evaluate for possible underlying infection with multiple recent hospitalizations. 3. Recent history of chronic pancreatitis with necrotizing pancreatic pseudocyst; s/p drainage at ~6 weeks ago complicating #1 & #2 - Noted. We will check MRCP to further define pancreatic anatomy and to help guide GI decision making. 4. Portal Vein Thrombosis in the setting of previously known [id number] previously on Xarelto but more recently treated with full-dose Lovenox adding to the pathology of #1 - #3 - Continue full-dose Lovenox as previous. 5. History of alcohol abuse (quit 2013); with chronic pancreatitis - Noted with MICHELLE level pending. 6. History of polysubstance abuse (quit 2013) - Noted with [place] UDS pending. 7. History of cholecystectomy - Noted. 8. Morbid obesity; with BMI of 42.5 this admission - Weight loss will be recommended. 9. History of DVT/PE; in the setting of known [id number] with history of IVC filter placement - Noted with patient reporting her IVC filter may be cracked with her already have an appointment in April to potentially have this device removed. 10. DM-2; of unknown control - Keep n.p.o. except for ice chips, sips and medications. Fingerstick blood sugars every 6 hours. Check hemoglobin A1c to objectively evaluate quality of diabetic control. 11. Essential hypertension - Resume home regimen plus give IV hydralazine as needed for systolic blood pressure greater than 160 mmHg. 12. Hyperlipidemia - Hold statin for now with intractable nausea vomiting and elevated LFTs. Check lipid profile as noted above. 13. Chronic diastolic CHF - Stable with no evidence of acute flare. 14. History of CVA - Noted. 15. Seizure disorder; on divalproex - Continue divalproex and check valproic acid level to ensure therapeutic range. Give IV Ativan as needed for breakthrough seizure activity. 16. History of herpes; on chronic Valtrex - Resume Valtrex as previous. 17. GERD - Continue PPI IV. 18. Depression with anxiety - Home regimen to continue unchanged. 19. History of cellulitis of the face - Noted. 20. History of COVID-19 - Noted. 21. DVT prophylaxis - Patient on full-dose Lovenox for #4 which will be continued. Total time: Approximately 75 minutes. Charges/Coding Visit Charges Inpatient E&M: 48682 Init Hosp L3
[2024-01-26 20:00] VITALS: BP 149/73; PULSE 94; RESP 21; O2SAT 93
[2024-01-26 20:55] VITALS: BP 170/114; PULSE 97; RESP 16; TEMP 36.9; O2SAT 94
[2024-01-26] MEDS: HYDROmorphone 0.5 MG/0.5 ML SYRINGE IV (21:18)
[2024-01-26] MEDS: 0.9% Normal Saline (1000mL) 1,000 ML 150 ML IV (21:18)
[2024-01-26 21:21] LABS: Cholesterol 213 mg/dL (200); High Density Lipoprotein 26 mg/dL; Triglycerides 318 mg/dL; Very Low Density Lipoprotein 64 mg/dL (5-40)
[2024-01-26 22:00] VITALS: BP 142/127; PULSE 97; RESP 16; O2SAT 94
[2024-01-26 22:35] LABS: Hemoglobin A1c 7.1 % (3.8-5.6)
[2024-01-26 22:40] VITALS: BMI 42.5
[2024-01-26 23:09] VITALS: BP 138/80; PULSE 94; RESP 16; TEMP 36.7; O2SAT 99
[2024-01-26 23:35] LABS: Alcohol, Blood (Medical)-Serum < 3.0 mg/dL
[2024-01-26] MEDS: MELATONIN 10 MG TABLET 5 MG PO (23:37)
[2024-01-26] MEDS: Enoxaparin 100 MG/ML Syringe SC (23:39)
[2024-01-26] MEDS: Doxepin Hydrochloride 10 MG Capsule PO (23:39)
[2024-01-26] MEDS: Fenofibrate 145 MG Tablet PO (23:39)
[2024-01-26 23:42] LABS: Valproic Acid (Depakene) Level 26 ug/mL (50-100)
[2024-01-26] MEDS: Divalproex Sodium 250 MG Tablet PO (23:42)
[2024-01-26] MEDS: Benztropine Mesylate 0.5 MG TABLET PO (23:42)
[2024-01-26] MEDS: Scopolamine 1mg/72hr Patch 1 PATCH TD (23:49)
[2024-01-27] MEDS: Ketorolac 15 MG/ML Vial IV ×3 (01:30→23:14)
[2024-01-27 03:54] VITALS: BMI 42.5
[2024-01-27] MEDS: HYDROmorphone 1 MG/ML Syringe IV ×4 (04:09→19:16)
[2024-01-27 04:12] VITALS: BP 145/70; PULSE 101; RESP 16; TEMP 36.5; O2SAT 97
[2024-01-27] MEDS: 0.9% Normal Saline (1000mL) 1,000 ML 150 ML IV ×3 (04:18→19:15)
[2024-01-27 07:31] LABS: Absolute Lymphocyte Count 1.29 X10^3/uL (0.83-4.51); Absolute Neutrophil Count 6.8 X10^3/uL (2.0-7.7); Basophil# 0.04 X10^3/uL; Basophil% 0.4 % (0-1); Eosinophils% 2.2 % (0-5); Hematocrit 36.5 % (37-47); Hemoglobin 11.5 g/dL (12.0-15.0); Lymphocyte # 1.29 X10^3/ul (0.83-4.51); Lymphocyte % 14.3 % (19-41); Mean Corp Hgb Conc 31.5 g/dL (32-36); Mean Corpuscular Hgb 28.9 pg (27.0-32.0); Mean Corpuscular Volume 91.7 fL (81-99); Mean Platelet Vol. 8.3 fl (6.2-12.0); Monocyte# 0.65 X10^3/uL; Monocyte% 7.2 % (0-10); NRBC Flagged by Analyzer 0 % (0-5); Neutrophil # 6.79 X10^3/uL (2.7-7.7); Neutrophil % 75.1 % (47-70); Platelet Count 297 K/mm3 (150-450); RBC Distribution Width CV 13.7 % (11.6-14.6); RBC Distribution Width SD 46.6 fl (35.1-43.9); Red Blood Count 3.98 M/mm3 (4.2-5.4)
--- NOTE | 2024-01-27 07:46 | PN.HOSP_ITS ---
Reason for Visit Reason for Visit: Diagnoses Dehydration (01/26/24) Alcohol abuse, in remission (01/26/24) Other psychoactive substance abuse, in remission (01/26/24) Acute pancreatitis without necrosis or infection, unspecified (01/26/24) Unspecified abdominal pain (01/26/24) Diarrhea, unspecified (01/26/24) Elevation of levels of liver transaminase levels (01/26/24) Subjective Subjective Still with abdominal pain. Objective Data Objective Data Vital Signs: Vital Signs Temp Pulse Resp BP Pulse Ox O2 Del Method 36.5 C L 101 H 16 145/70 H 97 Room Air 01/27/24 04:12 01/27/24 04:12 01/27/24 04:12 01/27/24 04:12 01/27/24 04:12 01/27/24 04:12 Oxygen Delivery Method Room Air Weight: 109 kg Body Mass Index (BMI) 42.5 Intake & Output: Intake and Output for Last 24 Hours 01/25/24 01/26/24 01/27/24 23:59 23:59 23:59 Intake Total 1000 / 1100 1300 / 1300 Balance 1000 / 1100 1300 / 1300 Lab / Micro Data 01/27/24 07:15 01/27/24 07:15 Labs: Laboratory Results - last 24 hr 01/26/24 17:50: WBC 11.2 H, RBC 4.16 L, Hgb 12.0, Hct 37.9, MCV 91.1, MCH 28.8, MCHC 31.7 L, RDW Std Deviation 46.0 H, RDW Coeff of Megan 13.6, Plt Count 328, MPV 8.7, Immature Gran % (Auto) 0.700, Neut % (Auto) 76.2 H, Lymph % (Auto) 14.6 L, Bullitt % (Auto) 6.4, Eos % (Auto) 1.7, Baso % (Auto) 0.4, Absolute Neuts (auto) 8.5 H, Absolute Lymphs (auto) 1.64, Nucleated RBC % 0, Sodium 134 L, Potassium 4.2, Chloride 106, Carbon Dioxide 23.0, Anion Gap 5, BUN 7, Creatinine 0.86, Estim Creat Clear Calc 93.67, Est GFR (MDRD) Af Amer 90, Est GFR (MDRD) Non-Af 75, BUN/Creatinine Ratio 8.2 L, Glucose 116 H, Hemoglobin A1c 7.1 H, Calcium 9.4, Total Bilirubin 0.60, Direct Bilirubin 0.24, AST 114 H, ALT 193 H, Alkaline Phosphatase 141 H, Total Protein 7.6, Albumin 3.2, Globulin 4.4 H, Triglycerides 318 H, Cholesterol 213 H, LDL Cholesterol 123, VLDL Cholesterol 64 H, HDL Ch olesterol 26 L, Lipase 24 01/26/24 23:07: Valproic Acid 26 L, Ethyl Alcohol < 3.0 01/27/24 07:15: WBC 9.0, RBC 3.98 L, Hgb 11.5 L, Hct 36.5 L, MCV 91.7, MCH 28.9, MCHC 31.5 L, RDW Std Deviation 46.6 H, RDW Coeff of Megan 13.7, Plt Count 297, MPV 8.3, Immature Gran % (Auto) 0.800, Neut % (Auto) 75.1 H, Lymph % (Auto) 14.3 L, Bullitt % (Auto) 7.2, Eos % (Auto) 2.2, Baso % (Auto) 0.4, Absolute Neuts (auto) 6.8, Absolute Lymphs (auto) 1.29, Nucleated RBC % 0 Radiography Diagnostic Testing: Radiology Impression Gallbladder Ultrasound 01/26/24 19:00 IMPRESSION: Hepatomegaly and nonspecific hepatocellular disease. Postop change status post cholecystectomy Nonvisualization of pancreas due to overlapping bowel gas. CT recommended if indicated Electronically Signed: Mason De La Rosa MD at 20:03 EDT Reading Location ID and State: [facility] / [place] Tel , Service support , Physical Exam Const alert and no apparent distress Resp normal respiratory effort, no retractions, no use of accessory muscles and clear to auscultation bilaterally Cardio regular rate, regular rhythm, S1 normal heart sound and S2 normal heart sound GI GI Narrative: Abdominal pain. Right flank out of proportion to exam. Neuro Sensorium / Orientation: awake Assessment & Plan Assessment/Plan (1) Acute on chronic pancreatitis: (2) Transaminitis: (3) Abdominal pain: QUALIFIERS: Abdominal location: unspecified location Qualified Code(s): R10.9 - Unspecified abdominal pain (4) Intractable nausea and vomiting: (5) Diarrhea: QUALIFIERS: Diarrhea type: unspecified type Qualified Code(s): R19.7 - Diarrhea, unspecified (6) Dehydration: (7) History of drug abuse: (8) History of alcohol abuse: PLAN: Plan Acute on chronic Pancreatitis with prior necrotizing pseudocyst * lipase only 24. However, her lipase levels have never been too high, likely due to chronic pancreatitis. * Treat supportively with IVF and pain control. * GI consult * CT showed inflammation around the head of the pancreas on the . US was limited due to bowel overlap and could not see the pancreas. * MRCP ordered was limited due to artifact. Personally reviewed medical records from through [facility]. Last MRCp 11/09/2023: Increase in size of pancreatic pseudocyst involving the head and body. Suggestive of a pseudocyst in patient with prior pancreatitis. There is main pancreatic ductal dilation in the tail likely postobstructive in nature. * Other possibilities for abdominal pain could be enteritis. * Will start the patient on clear diet and advance as tolerated. Chronic portal vein thrombosis * known coagulopathy due to factor V Leiden deficiency and h/o VTE * continue therapeutic-dosing of enoxaparin. Chronic conditions: * History of alcohol abuse (quit 2013); with chronic pancreatitis. Alcohol level negative * Polysubstance abuse history: check UDS * Obesity Class III: complicates management. Long-term weight loss advised. * DM-2: a1c 7.1. At home takes 53 units of glargine daily and 18 of aspart TID. Given that she is currently NPO, prandial insulin held. Glargine decreased to 25/d. SSI Q6h while NPO. * Essential hypertension: stable. - Resume home regimen plus give IV hydralazine as needed for systolic blood pressure greater than 160 mmHg. * Hyperlipidemia: hold statin. * Chronic CHF - unclear type. Compensated. No need for echocardiogram at this time. * History of CVA: unclear type. Stable. * Seizure disorder; on divalproex - Valproic acid level low. No change to therapy at this time. * History of herpes: unknown type. Continue valganciclovir. * GERD - Continue PPI IV. * Depression with anxiety - continue priro aripiprazole, doxepin DVT prophylaxis -not indicated as patient is already anticoagulated. Charges/Coding Visit Charges Inpatient E&M: 32799 Subs Hosp L2
[2024-01-27 08:05] LABS: ALB/GLOB Ratio 0.7 RATIO (0.9-2.4); AST(SGOT) 213 U/L (15-37); Alanine Aminotransfer ALT/SGPT 262 U/L (13-56); Albumin, Serum 2.9 g/dL (3.2-5.0); Alkaline Phosphatase 138 U/L (45-117); Anion Gap 8 (5-15); BUN 6 mg/dL (7-18); BUN/Creat Ratio 7.6 RATIO (10-20); Calcium,Total 8.6 mg/dL (8.5-10.1); Chloride 103 mmol/L (98-107); Creatinine, Serum 0.79 mg/dL (0.55-1.02); EST Glomerular Filtration Rate 83 mL/min (>60); Est Glom Filt Rate - Afr Amer 100 mL/min (>60); Estimated Creatinine Clearance 102.05 ml/min; Globulin 4.1 g/dL (2.2-4.2); Glucose 102 mg/dL (74-106); Magnesium 1.6 mg/dL (1.6-2.6); Phosphorus 3.6 mg/dL (2.5-4.9); Potassium 3.6 mmol/L (3.5-5.1); Sodium Level 135 mmol/L (136-145)
[2024-01-27 08:45] VITALS: BP 127/67; PULSE 95; RESP 16; TEMP 36.8; O2SAT 97
[2024-01-27 08:51] LABS: Bedside Glucose 110 mg/dL (74-106)
--- NOTE | 2024-01-27 09:00 | MRI_ITS ---
STUDY: MRI ABDOMEN WITHOUT CONTRAST REASON FOR EXAM: Female, 48 years old. Recurrent pancreatitis., NECROTIZING PSEUDO CYST TECHNIQUE: Standardized fat and water weighted pulse sequences were obtained in all 3 orthogonal planes. COMPARISON: CT January 24, 2024 FINDINGS: The visualized lung bases are unremarkable. The visualized portions of the heart are within normal limits. There is hepatomegaly with diffuse hepatic enlargement. There are surgical clips in the gallbladder fossa consistent with a prior cholecystectomy. The common duct measures 0.8 cm Normal spleen. There is artifact obscuring the pancreas. Normal bilateral adrenal glands. Normal right kidney. Normal left kidney. Normal visualized stomach. Normal small intestine. Normal colon. There is non-visualization of the appendix. Normal abdominal aorta. There is artifact from filter in the inferior vena cava. Normal retroperitoneum. There is no free fluid in the abdomen. Normal abdominal wall. Normal osseous structures. MRI/MRCP Abdomen without Contrast IMPRESSION: Hepatomegaly. Prior cholecystectomy. No biliary dilatation. Pancreas is obscured due to artifacts. Electronically Signed: Ranjan Marsh MD at 11:45 EDT ,
[2024-01-27 09:18] LABS: Amphetamine Urine VISTA NEGATIVE (<1000 ng/mL); Barbiturate Urine VISTA NEGATIVE (< 200 ng/mL); Benzodiazepine Urine VISTA NEGATIVE (< 200 ng/mL); Cocaine Urine VISTA NEGATIVE (< 300 ng/mL); Ecstacy Urine VISTA NEGATIVE (< 500 ng/mL); Methadone Urine VISTA NEGATIVE (< 300 ng/mL); PCP Urine VISTA NEGATIVE (< 25 ng/mL); THC Urine VISTA POSITIVE (< 50 ng/mL); Vista UDS pH Range 4
[2024-01-27] MEDS: proMETHazine 25 MG/ML Syringe 12.5 MG IM ×2 (09:22→20:48)
[2024-01-27] MEDS: Pantoprazole Sodium 40 MG in 0.9% Normal Saline (100mL MB+) 100 ML 330 MG IV (09:23)
[2024-01-27] MEDS: cloNIDine HCl 0.2 MG Tablet PO (11:07)
[2024-01-27] MEDS: Divalproex Sodium 250 MG Tablet PO ×2 (11:08→23:19)
[2024-01-27] MEDS: Benztropine Mesylate 0.5 MG TABLET PO ×2 (11:08→23:20)
[2024-01-27] MEDS: Acyclovir 200 MG Capsule 400 MG PO ×2 (11:08→23:19)
[2024-01-27] MEDS: Ergocalciferol 1.25 MG (50, 000 UNIT) Capsule PO (11:08)
[2024-01-27] MEDS: ARIPiprazole 10 MG Tablet PO (11:08)
[2024-01-27] MEDS: Venlafaxine XR 75 MG Capsule PO (11:08)
[2024-01-27 11:09] VITALS: BP 127/67; PULSE 95
[2024-01-27] MEDS: Enoxaparin 100 MG/ML Syringe SC (11:09)
[2024-01-27] MEDS: Metoprolol(XL)Succ 25 MG Tablet PO (11:09)
--- NOTE | 2024-01-27 13:50 | CASEMGMT ---
KAY LAWSON Assessment: Face to Face with pt for initial transition planning/care coordination assessment. RN LULU introduced self and role at [facility], pt voices understanding and consents to assessment. Pt lying in bed in no distress, nurse in room finishing vitals. Pt agreeable to assessment. Pt is A&O x4 and answers all questions appropriately at this time. Care providers, pharmacy, and demographics verified/updated. Admitting Dx: Pancreatitis, Recurrent with intractable N/V PCP:Nicole Specialists: Mindy, Vascular; Tabii, Pain Management; GI at can't recall name; Endo can't recall name. Preferred Pharmacy: [facility] Insurance: [employer] Prescription Benefit: yes LNOK: Lizz Patricia - Mom, Giancarlo Stevens-Boyfriend Living Arrangements: Pt lives with boyfriend in a 1 story home with three steps to enter and no handrails. Pt stated I with ADLs and needs assistance for IADLs. Pt denies any needs going home. Transportation: Pt drives self, boyfriend able to drive when needed. DME: Denies HHC/SNF: Hx HHC - [place], Denies Hx of SNF Pt states no concerns with going home at time of dc. Pt states no further concerns/needs. Pt stated she vapes and uses medical marijuana. Denies wanting information about cessation program. CM to follow. Advised pt to ask CM if any further question/concerns/needs arise, voices understanding. Pt Goal: Home Plan: Home no needs Lynn VILLANUEVA CM
--- NOTE | 2024-01-27 14:17 | CHAPLAIN ---
Type of Pastoral Visit _x__ Initial Visit ___ Follow-up Visit ___ On-call Visit ___ General Patient Visit ___ Spiritual Assessment ___ Family Conference ___ Bereavement ___ Rapid Response ___ Code Blue ___ Other (describe below) Pastoral Care Referral From _x__ Patient ___ Family ___ Nurse ___ Physician ___ Agency Appointments Supervisor ___ Principal Accounts Clerk ___ Other (describe below) Sacrament/Intervention _x__ Active listening ___ Anointing ___ Church ___ Bereavement ___ Communion ___ Kathleen exploration ___ ___ Life review _x__ Prayer ___ Reconciliation ___ Sacrament of Sick _x__ Supportive presence ___ Wedding ___ Other (describe below) Pastoral Comments patient has been admitted again for this condition; pt remembers this wellfield technician and asks for prayer, initially stating that otherwise she is okay; after the prayer the patient acknowledges that the DR in ED said you will never get over this and that these words were both confusing to hear and very hurtful as I do believe I can get better and live well; pt became tearful; this wellfield technician listened to pt and offered support and empathy for words that were difficult and hurtful
[2024-01-27 14:19] VITALS: BP 132/87; PULSE 92; RESP 16; TEMP 37; O2SAT 95
[2024-01-27 16:30] LABS: Bedside Glucose 118 mg/dL (74-106)
[2024-01-27] MEDS: Insulin Glargine-YFGN 100 UNIT/ML Pen 25 UNIT SC (17:07)
[2024-01-27 17:12] LABS: Bedside Glucose 152 mg/dL (74-106)
[2024-01-27 18:47] LABS: Internal QC Validated? YES +Cl - CLEAR BKGD; Pregnancy, Urine Negative Negative
[2024-01-27 20:33] VITALS: BP 145/86; PULSE 89; RESP 16; TEMP 37.2; O2SAT 96
--- NOTE | 2024-01-27 21:02 | EX.PCM.CON.G ---
HPI Consult Data Date of Consult: 01/27/24 HPI Narrative Reason for Consultation: Pancreatitis HPI Narrative: DOROTHEA CLARK, is a 48 F presented to the ED with significant abdominal pain. She has a past medical history of essential hypertension, hyperlipidemia, morbid obesity; with BMI of 42.5 this admission, history of alcohol abuse (quit 2013); with chronic pancreatitis, history of polysubstance abuse (quit 2013), history of cholecystectomy, DM-2; of unknown control, chronic diastolic CHF, history of DVT/PE; in the setting of known factor V Leiden with history of IVC filter placement, history of CVA, seizure disorder. She also recently diagnosed pancreatitis with necrotizing pseudocyst with drainage approximately 6 weeks ago at [facility]. She has a history of portal vein thrombosis in the setting of known factor V Leiden disorder switched from Xarelto to full-dose Lovenox ~6 weeks ago followed by a recent visit to this ER 2 days ago for findings of pancreatitis. She came back to [facility] ER once again complaining of abdominal pain with intractable nausea and vomiting. reports she was sent home 2 days ago from the ER on oral Vicodin as needed which has not helped her symptoms as she has had increasing pain and is unable to keep down solids or liquids. She also admits to non-bloody diarrhea which usually accompanies her pancreatitis flares. She denies associated fever, chills, chest pain, shortness of breath or constipation but she does admit to dehydration with poor oral intake due to frequent bouts of nausea and vomiting. in the ER she underwent gallbladder ultrasound which revealed hepatomegaly and nonspecific hepatocellular disease with postoperative changes consistent with previous cholecystectomy and nonvisualization of CBD and pancreas due to overlapping bowel gas with alternative follow-up imaging recommended with a normal serum lipase of 24 units/L and laboratory evidence of mild transaminitis with AST of 114 units/L, ALT of 193 units/L and alkaline phosphatase of 141 units/L. [facility] Medical History Anxiety Chronic constipation Depression DVT (deep venous thrombosis) Epilepsy Factor V Leiden mutation GERD (gastroesophageal reflux disease) History of CVA (cerebrovascular accident) History of pulmonary embolus (PE) Hyperlipidemia Hypertension Pancreatitis Presence of IVC filter Seizure disorder Smoker Stroke/cerebrovascular accident Substance abuse Vitamin D deficiency Home Medications furosemide 40 mg tablet 40 mg PO DAILY water pill 09/10/16 [History Last Taken 08/17/23] valacyclovir 500 mg tablet (Valtrex) 500 mg PO DAILY herpes 10/25/18 [History Last Taken 08/17/23] linaclotide 290 mcg capsule (Linzess) 290 mcg PO DAILY bowels 05/28/21 [History Last Taken 08/17/23] methenamine hippurate 1 gram tablet (Hiprex) 1 g PO QHS bladder infections 12/03/21 [History Last Taken 08/16/23] venlafaxine 150 mg capsule,extended release 24 hr (Effexor XR) 150 mg PO QHS mood 12/03/21 [History Last Taken 08/17/23] cholecalciferol (vitamin D3) 1,250 mcg (50,000 unit) capsule 50,000 unit PO FR supplement 02/05/23 [History Last Taken 08/12/23] omeprazole 40 mg capsule,delayed release 40 mg PO BID 02/23/23 [History Last Taken 08/17/23] fenofibrate nanocrystallized 145 mg tablet 145 mg PO QHS 05/07/23 [History Last Taken 08/16/23] aripiprazole 10 mg tablet 10 mg PO DAILY MOOD 06/23/23 [History Last Taken 08/17/23] benztropine 0.5 mg tablet 0.5 mg PO BID 06/23/23 [History Last Taken 07/21/23] divalproex 250 mg tablet,delayed release 250 mg PO Q12H 06/23/23 [History Last Taken 08/17/23] clonidine HCl 0.2 mg tablet 0.2 mg PO QHS 07/22/23 [History Last Taken 08/17/23] metoprolol succinate 25 mg tablet,extended release 24 hr 25 mg PO DAILY 07/22/23 [History Last Taken 08/17/23] melatonin 10 mg tablet 5 mg PO QHS PRN sleep 08/17/23 [History Last Taken Unknown] pen needle, diabetic 31 gauge x 1/3 #100 ea 08/18/23 [Rx Last Taken Unknown] promethazine 25 mg tablet 25 mg PO TID PRN nausea and vomiting 7 days #21 tabs 10/23/23 [Rx Last Taken Unknown] enoxaparin 100 mg/mL subcutaneous syringe 100 mg subcut Q12H 01/19/24 [History Last Taken Unknown] glipizide 10 mg tablet, extended release 24 hr 10 mg PO QDAY 01/19/24 [History Last Taken Unknown] hydroxyzine HCl 25 mg tablet 25 mg PO BID PRN anxiety #60 tabs 01/19/24 [Rx Last Taken Unknown] insulin aspart U-100 100 unit/mL (3 mL) subcutaneous pen (Novolog FlexPen U-100 Insulin aspart) 18 unit subcut TID 01/19/24 [History Last Taken Unknown] venlafaxine 75 mg capsule,extended release 24 hr 75 mg PO QDAY 01/19/24 [History Last Taken Unknown] doxepin 10 mg capsule 10 mg PO QHS #30 caps 01/25/24 [Rx Last Taken Unknown] enoxaparin 100 mg/mL subcutaneous syringe (Lovenox) 100 mg subcut Q12H 01/26/24 [History Last Taken Unknown] insulin glargine U-300 conc 300 unit/mL (3 mL) subcutaneous pen (Toujeo Max U-300 SoloStar) 55 unit subcut DAILY 01/26/24 [History Last Taken Unknown] lactulose 10 gram/15 mL oral solution 15 ml PO BID PRN constipation 01/26/24 [History Last Taken Unknown] nitrofurantoin monohydrate/macrocrystals 100 mg capsule (Macrobid) 100 mg PO DAILY PRN after sex 01/26/24 [History Last Taken Unknown] potassium chloride 20 mEq tablet,extended release 20 meq PO TID 01/26/24 [History Last Taken Unknown] Allergy/AdvReac Type Severity Reaction Status Date / Time gabapentin [From Neurontin] Allergy Rash Verified 01/26/24 16:45 Penicillins Allergy Rash Verified 01/26/24 16:45 Sulfa (Sulfonamide Allergy Rash Verified 01/26/24 16:45 Antibiotics) Family History Mother Hypertension Hyperlipidemia Father Heart disease Surgical History H/O: History of appendectomy History of embolic filter insertion History of hysterectomy Hx of cholecystectomy Social History household members: none Smoking Status: Current every day smoker tobacco type: e-cigarettes alcohol intake: former substance use type: marijuana ROS ROS Narrative Review of systems: General: Patient denies fever or chills. HENT: Denies headache, denies stuffy nose, denies sore throat EYES: Denies changes in vision or discharge from eyes. Resp: Denies cough, denies shortness of breath Cardiac: Denies chest pain, palpitations or heart racing. GI: Patient admits to severe abdominal pain with nausea, bilious emesis and nonbloody diarrhea as per HPI. : Denies changes in urination Extremity: Denies swelling Musculoskeletal: Feels somewhat generally weak and unwell but denies arthralgias or myalgias. Neuro: Patient denies headache, paresthesias or focal neurologic weakness. Heme: Denies any bleeding or bruising Skin: Denies rashes Psychiatric: No complaints voiced related to uncontrolled depression or anxiety. Endocrine: No polyuria, polydipsia or polyphagia. The rest of the 14 point ROS was negative except for positives in HPI. Physical Exam Const alert and no apparent distress Resp normal respiratory effort, no retractions, no use of accessory muscles and clear to auscultation bilaterally Cardio regular rate, regular rhythm, S1 normal heart sound and S2 normal heart sound GI GI Narrative: Abdominal pain. Right flank out of proportion to exam. Neuro Sensorium / Orientation: awake Lab / Micro Data 01/27/24 07:15 01/27/24 07:15 Labs: Laboratory Results - last 24 hr 01/26/24 17:50: Hemoglobin A1c 7.1 H, Triglycerides 318 H, Cholesterol 213 H, LDL Cholesterol 123, VLDL Cholesterol 64 H, HDL Cholesterol 26 L 01/26/24 23:07: Valproic Acid 26 L, Ethyl Alcohol < 3.0 01/27/24 07:15: WBC 9.0, RBC 3.98 L, Hgb 11.5 L, Hct 36.5 L, MCV 91.7, MCH 28.9, MCHC 31.5 L, RDW Std Deviation 46.6 H, RDW Coeff of Megan 13.7, Plt Count 297, MPV 8.3, Immature Gran % (Auto) 0.800, Neut % (Auto) 75.1 H, Lymph % (Auto) 14.3 L, [place] % (Auto) 7.2, Eos % (Auto) 2.2, Baso % (Auto) 0.4, Absolute Neuts (auto) 6.8, Absolute Lymphs (auto) 1.29, Nucleated RBC % 0, Sodium 135 L, Potassium 3.6, Chloride 103, Carbon Dioxide 24.0, Anion Gap 8, BUN 6 L, Creatinine 0.79, Estim Creat Clear Calc 102.05, Est GFR (MDRD) Af Amer 100, Est GFR (MDRD) Non-Af 83, BUN/Creatinine Ratio 7.6 L, Glucose 102, Calcium 8.6, Phosphorus 3.6, Magnesium 1.6, Total Bilirubin 0.90, AST 213 H, ALT 262 H, Alkaline Phosphatase 138 H, Total Protein 7.0, Albumin 2.9 L, Globulin 4.1, Albumin/Globulin Ratio 0.7 L 01/27/24 08:26: POC Glucose 110 H 01/27/24 08:42: Urine Opiates Screen POSITIVE H, Urine Methadone Screen NEGATIVE, Ur Barbiturates Screen NEGATIVE, Ur Phencyclidine Scrn NEGATIVE, Ur Amphetamines Screen NEGATIVE, MDMA (Ecstasy) Screen NEGATIVE, U Benzodiazepines Scrn NEGATIVE, Urine Cocaine Screen NEGATIVE, U Cannabinoids Screen POSITIVE H, Ur Drug Screen Comment 01/27/24 11:32: POC Glucose 118 H 01/27/24 16:54: POC Glucose 152 H 01/27/24 : Urine Test Negative Imaging Radiology Impression MRCP 01/27/24 09:00 IMPRESSION: Hepatomegaly. Prior cholecystectomy. No biliary dilatation. Pancreas is obscured due to artifacts. Electronically Signed: Ranjan Marsh MD at 11:45 EDT , Assessment & Plan Assessment/Plan (1) Abdominal pain: QUALIFIERS: Abdominal location: unspecified location Qualified Code(s): R10.9 - Unspecified abdominal pain (2) New onset type 2 diabetes mellitus: (3) Acute on chronic pancreatitis: (4) Transaminitis: (5) Intractable nausea and vomiting: (6) Diarrhea: QUALIFIERS: Diarrhea type: unspecified type Qualified Code(s): R19.7 - Diarrhea, unspecified (7) Dehydration: (8) History of drug abuse: (9) History of alcohol abuse: PLAN: Plan Patient is a 48-year-old female who presented to [facility] ED on 08/17/2023 with recurrent abdominal pain Recurrent abdominal pain, known history of chronic pancreatitis with chronic pain Complicated history of chronic recurrent pancreatitis with chronic abdominal pain, with several admissions and ED visits for these concerns. Follows with GI and pain management with . Currently she does have increased LFTs which could be secondary to stricture at the head of the pancreas due to inflammation from her recent pancreatitis and pseudocyst. There was not good visualization of her distal common bile duct and pancreatic head and there MRCP. There is ductal dilation and she has never had a stent and may benefit from stenting of the pancreatic duct and bile duct. Since she is on heparin that will need to be held tonight and not given tomorrow morning. The hope is to do ERCP tomorrow morning. N.p.o. past midnight. Charges/Coding Visit Charges Inpatient E&M: 83029 Init Hosp L3
[2024-01-27] MEDS: Venlafaxine XR 150 MG Capsule PO (23:19)
[2024-01-27] MEDS: Doxepin Hydrochloride 10 MG Capsule PO (23:20)
[2024-01-27] MEDS: Fenofibrate 145 MG Tablet PO (23:20)
[2024-01-27 23:40] LABS: Bedside Glucose 118 mg/dL (74-106)
[2024-01-28] VITALS (12 sets, daily range): BP systolic 127–158; BP diastolic 68–99; PULSE 85–117; RESP 16–18; TEMP 36.4–37.5; O2SAT 92–99; BMI 43.9
[2024-01-28] MEDS: HYDROmorphone 1 MG/ML Syringe IV ×6 (00:40→23:47)
[2024-01-28] MEDS: 0.9% Normal Saline (1000mL) 1,000 ML 150 ML IV ×4 (00:46→20:56)
[2024-01-28] MEDS: 0.9% Saline Lock 10 ML Syringe IV ×3 (06:24→14:23)
[2024-01-28] MEDS: Ketorolac 15 MG/ML Vial IV ×2 (06:48→16:26)
[2024-01-28 07:06] LABS: Absolute Lymphocyte Count 1.02 X10^3/uL (0.83-4.51); Absolute Neutrophil Count 6.6 X10^3/uL (2.0-7.7); Basophil# 0.03 X10^3/uL; Basophil% 0.4 % (0-1); Eosinophil# 0.19 X10^3/uL; Eosinophils% 2.2 % (0-5); Hematocrit 30.4 % (37-47); Hemoglobin 9.6 g/dL (12.0-15.0); Lymphocyte # 1.02 X10^3/ul (0.83-4.51); Lymphocyte % 11.9 % (19-41); Mean Corp Hgb Conc 31.6 g/dL (32-36); Mean Corpuscular Hgb 28.9 pg (27.0-32.0); Mean Corpuscular Volume 91.6 fL (81-99); Mean Platelet Vol. 8.6 fl (6.2-12.0); NRBC Flagged by Analyzer 0 % (0-5); Neutrophil # 6.62 X10^3/uL (2.7-7.7); Neutrophil % 77.6 % (47-70); Platelet Count 282 K/mm3 (150-450); RBC Distribution Width CV 13.5 % (11.6-14.6); RBC Distribution Width SD 45.6 fl (35.1-43.9); Red Blood Count 3.32 M/mm3 (4.2-5.4); White Blood Count 8.5 K/mm3 (4.4-11.0)
[2024-01-28 07:11] LABS: Bedside Glucose 137 mg/dL (74-106)
[2024-01-28 07:11] LABS: International Normalized Ratio 1.2; Partial Thromboplast Time 31.1 Seconds (24.1-36.2); Prothrombin Time (Protime)PT. 15.1 SECONDS (11.7-14.9)
[2024-01-28 07:46] LABS: ALB/GLOB Ratio 0.6 RATIO (0.9-2.4); AST(SGOT) 115 U/L (15-37); Alanine Aminotransfer ALT/SGPT 218 U/L (13-56); Albumin, Serum 2.6 g/dL (3.2-5.0); Alkaline Phosphatase 134 U/L (45-117); Anion Gap 5 (5-15); BUN 5 mg/dL (7-18); BUN/Creat Ratio 8.1 RATIO (10-20); Calcium,Total 8.5 mg/dL (8.5-10.1); Chloride 105 mmol/L (98-107); Creatinine, Serum 0.61 mg/dL (0.55-1.02); EST Glomerular Filtration Rate 110 mL/min (>60); Est Glom Filt Rate - Afr Amer 133 mL/min (>60); Estimated Creatinine Clearance 134.55 ml/min; Glucose 143 mg/dL (74-106); Potassium 3.5 mmol/L (3.5-5.1); Protein, Total 6.6 g/dL (6.4-8.2); Sodium Level 137 mmol/L (136-145)
--- NOTE | 2024-01-28 07:46 | PN.HOSP_ITS ---
Reason for Visit Reason for Visit: Diagnoses Type 2 diabetes mellitus without complications (01/26/24) Dehydration (01/26/24) Alcohol abuse, in remission (01/26/24) Other psychoactive substance abuse, in remission (01/26/24) Acute pancreatitis without necrosis or infection, unspecified (01/26/24) Other chronic pancreatitis (01/26/24) Unspecified abdominal pain (01/26/24) Nausea with vomiting, unspecified (01/26/24) Diarrhea, unspecified (01/26/24) Elevation of levels of liver transaminase levels (01/26/24) Subjective Subjective Abdomen feeling slightly better, but more distended today. Objective Data Objective Data Vital Signs: Vital Signs Temp Pulse Resp BP Pulse Ox O2 Del Method 37.0 C 86 16 127/68 H 96 Room Air 01/28/24 02:46 01/28/24 02:46 01/28/24 02:46 01/28/24 02:46 01/28/24 02:46 01/28/24 02:46 Oxygen Delivery Method Room Air Weight: 112.4 kg Body Mass Index (BMI) 43.9 Intake & Output: Intake and Output for Last 24 Hours 01/26/24 01/27/24 01/28/24 23:59 23:59 23:59 Intake Total 1000 / 1100 3342.5 / 3842.5 2232.5 / 2232.5 Output Total 1700 / 1700 Balance 1000 / 1100 3342.5 / 3142.5 532.5 / 532.5 Lab / Micro Data 01/28/24 06:40 01/28/24 06:40 Labs: Laboratory Results - last 24 hr 01/27/24 07:15: Sodium 135 L, Potassium 3.6, Chloride 103, Carbon Dioxide 24.0, Anion Gap 8, BUN 6 L, Creatinine 0.79, Estim Creat Clear Calc 102.05, Est GFR (MDRD) Af Amer 100, Est GFR (MDRD) Non-Af 83, BUN/Creatinine Ratio 7.6 L, Glucose 102, Calcium 8.6, Phosphorus 3.6, Magnesium 1.6, Total Bilirubin 0.90, AST 213 H, ALT 262 H, Alkaline Phosphatase 138 H, Total Protein 7.0, Albumin 2.9 L, Globulin 4.1, Albumin/Globulin Ratio 0.7 L 01/27/24 08:26: POC Glucose 110 H 01/27/24 08:42: Urine Opiates Screen POSITIVE H, Urine Methadone Screen NEGATIVE, Ur Barbiturates Screen NEGATIVE, Ur Phencyclidine Scrn NEGATIVE, Ur Amphetamines Screen NEGATIVE, MDMA (Ecstasy) Screen NEGATIVE, U Benzodiazepines Scrn NEGATIVE, Urine Cocaine Screen NEGATIVE, U Cannabinoids Screen POSITIVE H, Ur Drug Screen Comment 01/27/24 11:32: POC Glucose 118 H 01/27/24 16:54: POC Glucose 152 H 01/27/24 23:14: POC Glucose 118 H 01/27/24 : Urine Test Negative 01/28/24 06:40: WBC 8.5, RBC 3.32 L, Hgb 9.6 L, Hct 30.4 L, MCV 91.6, MCH 28.9, MCHC 31.6 L, RDW Std Deviation 45.6 H, RDW Coeff of Megan 13.5, Plt Count 282, MPV 8.6, Immature Gran % (Auto) 0.900, Neut % (Auto) 77.6 H, Lymph % (Auto) 11.9 L, Day % (Auto) 7.0, Eos % (Auto) 2.2, Baso % (Auto) 0.4, Absolute Neuts (auto) 6.6, Absolute Lymphs (auto) 1.02, Nucleated RBC % 0, PT 15.1 H, INR 1.2, APTT 31.1, Sodium 137, Potassium 3.5, Chloride 105, Carbon Dioxide 27.0, Anion Gap 5, BUN 5 L, Creatinine 0.61, Estim Creat Clear Calc 134.55, Est GFR (MDRD) Af Amer 133, Est GFR (MDRD) Non-Af 110, BUN/Creatinine Ratio 8.1 L, Glucose 143 H, Calcium 8.5, Total Bilirubin 0.60, AST 115 H, ALT 218 H, Alkaline Phosphatase 134 H, Total Protein 6.6, Albumin 2.6 L, Globulin 4.0, Albumin/Globulin Ratio 0.6 L 01/28/24 06:52: POC Glucose 137 H Radiography Diagnostic Testing: Radiology Impression MRCP 01/27/24 09:00 IMPRESSION: Hepatomegaly. Prior cholecystectomy. No biliary dilatation. Pancreas is obscured due to artifacts. Electronically Signed: Ranjan Marsh MD at 11:45 EDT , Physical Exam Const alert and no apparent distress Resp normal respiratory effort, no retractions, no use of accessory muscles and clear to auscultation bilaterally Cardio regular rate, regular rhythm, S1 normal heart sound and S2 normal heart sound GI normal to inspection, nondistended, normoactive bowel sounds, soft to palpation, non-tender and non-distended Extremity normal to inspection Neuro Sensorium / Orientation: awake and alert Assessment & Plan Assessment/Plan (1) Acute on chronic pancreatitis: (2) Transaminitis: (3) Abdominal pain: QUALIFIERS: Abdominal location: unspecified location Qualified Code(s): R10.9 - Unspecified abdominal pain (4) Intractable nausea and vomiting: (5) Diarrhea: QUALIFIERS: Diarrhea type: unspecified type Qualified Code(s): R19.7 - Diarrhea, unspecified (6) Dehydration: (7) History of drug abuse: (8) History of alcohol abuse: PLAN: Plan Acute on chronic Pancreatitis with prior necrotizing pseudocyst * lipase only 24. However, her lipase levels have never been too high, likely due to chronic pancreatitis. * Treat supportively with IVF and pain control. * GI consult * CT showed inflammation around the head of the pancreas on the . US was li mited due to bowel overlap and could not see the pancreas. * MRCP ordered was limited due to artifact. Personally reviewed medical records from through [facility]. Last MRCp 11/09/2023: Increase in size of pancreatic pseudocyst involving the head and body. Suggestive of a pseudocyst in patient with prior pancreatitis. There is main pancreatic ductal dilation in the tail likely postobstructive in nature. * Other possibilities for abdominal pain could be enteritis. * GI evaluated. Plan on ERCP today +/- stent. Chronic portal vein thrombosis * known coagulopathy due to factor V Leiden deficiency and h/o VTE * therapeutic-dosing of enoxaparin on hold for procedure. Resume post-ERCP. Acute anemia * unclear significance. Hg dropped from 12 to 9.6. No obvious source at this time. Cannot rule out lab error. * Monitor for now. Recheck this afternoon. Chronic conditions: * History of alcohol abuse (quit 2013); with chronic pancreatitis. Alcohol level negative * Polysubstance abuse history: check UDS * Obesity Class III: complicates management. Long-term weight loss advised. * DM-2: a1c 7.1. At home takes 53 units of glargine daily and 18 of aspart TID. Given that she is currently NPO, prandial insulin held. Glargine decreased to 25/d. SSI Q6h while NPO. * Essential hypertension: stable. - Resume home regimen plus give IV hydralazine as needed for systolic blood pressure greater than 160 mmHg. * Hyperlipidemia: hold statin. * Chronic CHF - unclear type. Compensated. No need for echocardiogram at this time. * History of CVA: unclear type. Stable. * Seizure disorder; on divalproex - Valproic acid level low. No change to therapy at this time. * History of herpes: unknown type. Continue valganciclovir. * GERD - Continue PPI IV. * Depression with anxiety - continue priro aripiprazole, doxepin DVT prophylaxis -not indicated as patient is already anticoagulated. Charges/Coding Visit Charges Inpatient E&M: 60353 Subs Hosp L2
--- NOTE | 2024-01-28 08:00 | RAD_ITS ---
CLINICAL HISTORY: ERCP Date: 01/28/2024 12:53 PM Date of : 1975 Images assigned to this order were provided in conjunction with an ERCP procedure performed in the operating room/procedural suite. Please see operative report for details. Fluoroscopic images: 7 Fluoroscopic time: 1:03 minutes Cumulative dose: NA, mGym2; 27.05; mGy Submitted imaging documents retrograde access to the biliary ductal system. Apparent balloon sweep was performed. No retained filling defects noted. Refer to procedural note for complete description. IMPRESSIONS: 1. Fluoroscopic guidance for procedural planning and confirmation 2. Apparent balloon sweep of the biliary ductal system, no retained fixed filling defects noted. Electronically Signed: Edwin Garcia MD at 1:19 EDT , RAD/ERCP Biliary/Pancreas IMPRESSION: undefined
[2024-01-28] MEDS: Ondansetron 4 MG/2 ML Vial IV ×2 (08:28→14:23)
--- NOTE | 2024-01-28 08:57 | RAD_ITS ---
STUDY: X-RAY - ABDOMEN/PELVIS REASON FOR EXAM: Female, 48 years old. abdominal distention TECHNIQUE: 3 AP views COMPARISON: CT abdomen and pelvis from 01/24/2024 FINDINGS: Normal visualized lung bases. IVC filter noted at least a portion of it is likely displaced and not present within the cava. This was also noted on the recent CT. There is a moderate amount of colonic fecal material. There is no demonstrated free abdominal air. The visualized liver, spleen and kidneys are grossly normal in size and morphology. Normal soft tissue structures. Normal visualized osseous structures. RAD/Abdomen Single View (Portable) IMPRESSION: No acute abdominal or pelvic process Abnormal appearing IVC filter is noted on recent CT. Electronically Signed: David Avalos MD at 13:41 EDT ,
[2024-01-28] MEDS: Pantoprazole Sodium 40 MG in 0.9% Normal Saline (100mL MB+) 100 ML 330 MG IV (10:44)
[2024-01-28] MEDS: Metoprolol(XL)Succ 25 MG Tablet PO (10:59)
[2024-01-28 12:00] LABS: Absolute Lymphocyte Count 1.22 X10^3/uL (0.83-4.51); Absolute Neutrophil Count 6.3 X10^3/uL (2.0-7.7); Basophil# 0.04 X10^3/uL; Basophil% 0.5 % (0-1); Eosinophil# 0.26 X10^3/uL; Eosinophils% 3.1 % (0-5); Hematocrit 31.4 % (37-47); Hemoglobin 9.8 g/dL (12.0-15.0); Lymphocyte # 1.22 X10^3/ul (0.83-4.51); Lymphocyte % 14.4 % (19-41); Mean Corp Hgb Conc 31.2 g/dL (32-36); Mean Corpuscular Hgb 28.7 pg (27.0-32.0); Mean Corpuscular Volume 91.8 fL (81-99); Mean Platelet Vol. 8.5 fl (6.2-12.0); Monocyte# 0.62 X10^3/uL; Monocyte% 7.3 % (0-10); NRBC Flagged by Analyzer 0 % (0-5); Platelet Count 266 K/mm3 (150-450); RBC Distribution Width CV 13.7 % (11.6-14.6); Red Blood Count 3.42 M/mm3 (4.2-5.4); White Blood Count 8.5 K/mm3 (4.4-11.0)
[2024-01-28 12:39] LABS: Bedside Glucose 97 mg/dL (74-106)
--- NOTE | 2024-01-28 13:05 | OP.ERCP_ITS ---
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 Refer to note in patient chart for documentation of history and physical. Patient has symptoms of acute epigastric abdominal pain, acute nausea and acute vomiting. She is status post laparoscopic cholecystectomy. Complications: No immediate complications. Procedure: Pre-Anesthesia Assessment: - Prior to the procedure, a History and Physical was performed, and patient medications and allergies were reviewed. The patient is competent. The risks and benefits of the procedure and the sedation options and risks were discussed with the patient. All questions were answered and informed consent was obtained. Patient identification and proposed procedure were verified by the physician in the pre-procedure area. Mental Status Examination: alert and oriented. Airway Examination: normal oropharyngeal airway and neck mobility. Respiratory Examination: clear to auscultation. CV Examination: normal. Prophylactic Antibiotics: The patient does not require prophylactic antibiotics. Prior Anticoagulants: The patient has taken no previous anticoagulant or antiplatelet agents. ASA Grade Assessment: II - A patient with mild systemic disease. After reviewing the risks and benefits, the patient was deemed in satisfactory condition to undergo the procedure. The anesthesia plan was to use general anesthesia. Immediately prior to administration of medications, the patient was re-assessed for adequacy to receive sedatives. The heart rate, respiratory rate, oxygen saturations, blood pressure, adequacy of pulmonary ventilation, and response to care were monitored throughout the procedure. The physical status of the patient was re-assessed after the procedure. After obtaining informed consent, the scope was passed under direct vision. Throughout the procedure, the patient's blood pressure, pulse, and oxygen saturations were monitored continuously. The Duodenoscope was introduced through the mouth, and advanced to the duodenum and used to inject contrast into the bile duct and ventral pancreatic duct. Scope In: 12:38:47 PM Scope Out: 12:59:52 PM Total Procedure Duration Time 0 hours 21 minutes 5 seconds Findings: The field service poultry technician film was normal. The esophagus was successfully intubated under direct vision. The scope was advanced to a normal major papilla in the descending duodenum without detailed examination of the pharynx, larynx and associated structures, and upper GI tract. The upper GI tract was grossly normal. The bile duct was deeply cannulated with the short-nosed traction sphincterotome. Contrast was injected. I personally interpreted the bile duct and pancreatic duct images. There was brisk flow of contrast through the ducts. Image quality was adequate. Contrast extended to the entire biliary tree. A straight Roadrunner wire was passed into the biliary tree. A 5 mm biliary sphincterotomy was made with a traction (standard) sphincterotome using ERBE electrocautery. There was no post-sphincterotomy bleeding. The biliary tree was swept with a 15 mm balloon starting at the bifurcation. One stone was removed. One stone remained. Dilation of the common bile duct with a 6-7-8 mm balloon dilator was successful. One 10 Fr by 5 cm temporary stent was placed 5 cm into the common bile duct. Bile flowed through the stent. The stent was in good position. Impression: - Choledocholithiasis was found. Partial removal was accomplished with biliary sphincterotomy; a stent was inserted. - A biliary sphincterotomy was performed. - The biliary tree was swept. - Common bile duct was successfully dilated. - One temporary stent was placed into the common bile duct. Procedure Code(s): --- Professional --- 90408, Endoscopic retrograde cholangiopancreatography (ERCP); with placement of endoscopic stent into biliary or pancreatic duct, including pre- and post-dilation and guide wire passage, when performed, including sphincterotomy, when performed, each stent [id number], Endoscopic retrograde cholangiopancreatography (ERCP); with removal of calculi/debris from biliary/pancreatic duct(s) 65773, 26, Combined endoscopic catheterization of the biliary and pancreatic ductal systems, radiological supervision and interpretation CPT copyright 2021 [employer]. All rights reserved. The codes documented in this report are preliminary and upon cuff folder review may be revised to meet current compliance requirements. Leonidas Mello DO 01/28/2024 1:03:51 PM This report has been signed electronically. Number of Addenda: 0 Note Initiated On: 01/28/2024 12:16 PM
--- NOTE | 2024-01-28 13:05 | OP.CCLET_ITS ---
01/28/2024 Rin Rivera Re : ERCP procedure for Allison Jangr Nicole This procedure was performed on Sunday, January 28, 2024. My impressions and recommendations are as follows: Impressions : - Choledocholithiasis was found. Partial removal was accomplished with biliary sphincterotomy; a stent was inserted. - A biliary sphincterotomy was performed. - The biliary tree was swept. - Common bile duct was successfully dilated. - One temporary stent was placed into the common bile duct. Recommendations : My findings are described in the full procedure note, which is enclosed. If I can be of further assistance, please feel free to contact me at . Sincerely, Leonidas Mello, 01/28/2024 1:03:51 PM This report has been signed electronically.
--- NOTE | 2024-01-28 13:29 | NURSING ---
Addendum entered by Charlie Skinner 01/28/24 13:34: pt taken down at approx 1150 via bed for ERCP Original Note: Pt taken to have ERCP done via bed.
[2024-01-28 13:46] LABS: Bedside Glucose 139 mg/dL (74-106)
[2024-01-28] MEDS: Acyclovir 200 MG Capsule 400 MG PO ×2 (15:43→20:57)
[2024-01-28] MEDS: Benztropine Mesylate 0.5 MG TABLET PO ×2 (15:45→20:57)
[2024-01-28] MEDS: Divalproex Sodium 250 MG Tablet PO ×2 (15:45→20:58)
[2024-01-28] MEDS: cloNIDine HCl 0.2 MG Tablet PO (15:45)
[2024-01-28] MEDS: Venlafaxine XR 75 MG Capsule PO (15:46)
[2024-01-28] MEDS: ARIPiprazole 10 MG Tablet PO (15:46)
[2024-01-28 17:04] LABS: Bedside Glucose 112 mg/dL (74-106)
[2024-01-28] MEDS: proMETHazine 25 MG/ML Syringe 12.5 MG IM (18:25)
[2024-01-28] MEDS: Lidocaine 5% Patch 1 PATCH TOPICAL (18:25)
[2024-01-28] MEDS: MELATONIN 10 MG TABLET 5 MG PO (20:53)
[2024-01-28] MEDS: Acetaminophen 500 MG Tablet 1000 MG PO (20:54)
[2024-01-28] MEDS: oxyCODONE 5 MG Tablet 10 MG PO (20:55)
[2024-01-28] MEDS: Fenofibrate 145 MG Tablet PO (20:57)
[2024-01-28] MEDS: Venlafaxine XR 150 MG Capsule PO (21:00)
[2024-01-28] MEDS: Enoxaparin 100 MG/ML Syringe SC (21:32)
[2024-01-28] MEDS: Doxepin Hydrochloride 10 MG Capsule PO (21:33)
[2024-01-28 21:54] LABS: Bedside Glucose 127 mg/dL (74-106)
[2024-01-29] MEDS: hydrOXYzine 50 MG/ML Vial 100 MG IM (01:20)
[2024-01-29] MEDS: 0.9% Normal Saline (1000mL) 1,000 ML 150 ML IV ×4 (01:35→22:15)
[2024-01-29] MEDS: oxyCODONE 5 MG Tablet 10 MG PO ×3 (03:58→20:36)
[2024-01-29 04:02] VITALS: BP 145/91; PULSE 85; RESP 16; TEMP 36.8; O2SAT 95
[2024-01-29] MEDS: Acetaminophen 500 MG Tablet 1000 MG PO ×3 (04:07→20:27)
[2024-01-29 04:45] LABS: Hematocrit 30.5 % (37-47); Hemoglobin 9.5 g/dL (12.0-15.0); Mean Corp Hgb Conc 31.1 g/dL (32-36); Mean Platelet Vol. 8.5 fl (6.2-12.0); Platelet Count 270 K/mm3 (150-450); RBC Distribution Width CV 13.8 % (11.6-14.6); RBC Distribution Width SD 46.9 fl (35.1-43.9); Red Blood Count 3.28 M/mm3 (4.2-5.4); White Blood Count 8.6 K/mm3 (4.4-11.0)
[2024-01-29 05:08] LABS: ALB/GLOB Ratio 0.6 RATIO (0.9-2.4); AST(SGOT) 57 U/L (15-37); Alanine Aminotransfer ALT/SGPT 168 U/L (13-56); Albumin, Serum 2.5 g/dL (3.2-5.0); Alkaline Phosphatase 127 U/L (45-117); Anion Gap 8 (5-15); BUN 5 mg/dL (7-18); BUN/Creat Ratio 7.6 RATIO (10-20); Calcium,Total 8.6 mg/dL (8.5-10.1); Chloride 107 mmol/L (98-107); Creatinine, Serum 0.66 mg/dL (0.55-1.02); EST Glomerular Filtration Rate 101 mL/min (>60); Est Glom Filt Rate - Afr Amer 122 mL/min (>60); Estimated Creatinine Clearance 122.11 ml/min; Globulin 4.2 g/dL (2.2-4.2); Glucose 140 mg/dL (74-106); Potassium 3.3 mmol/L (3.5-5.1); Protein, Total 6.7 g/dL (6.4-8.2); Sodium Level 138 mmol/L (136-145)
[2024-01-29] MEDS: Ketorolac 15 MG/ML Vial IV ×2 (06:41→20:20)
[2024-01-29 07:02] LABS: Bedside Glucose 132 mg/dL (74-106)
--- NOTE | 2024-01-29 08:00 | PN.HOSP_ITS ---
Reason for Visit Reason for Visit: Diagnoses Type 2 diabetes mellitus without complications (01/26/24) Dehydration (01/26/24) Alcohol abuse, in remission (01/26/24) Other psychoactive substance abuse, in remission (01/26/24) Acute pancreatitis without necrosis or infection, unspecified (01/26/24) Other chronic pancreatitis (01/26/24) Unspecified abdominal pain (01/26/24) Nausea with vomiting, unspecified (01/26/24) Diarrhea, unspecified (01/26/24) Elevation of levels of liver transaminase levels (01/26/24) Objective Data Objective Data Vital Signs: Vital Signs Temp Pulse Resp BP Pulse Ox O2 Del Method O2 Flow Rate 98.3 F 85 16 145/91 H 95 Room Air 6 01/29/24 04:02 01/29/24 04:02 01/29/24 04:02 01/29/24 04:02 01/29/24 04:02 01/29/24 04:02 01/28/24 13:25 Oxygen Flow Rate (L/min) 6 Oxygen Delivery Method Room Air Weight: 247 lb 12.793 oz Body Mass Index (BMI) 43.9 Intake & Output: Intake and Output for Last 24 Hours 01/27/24 01/28/24 01/29/24 23:59 23:59 23:59 Intake Total 3342.5 / 3842.5 4280.0 / 4280.0 1497.5 / 1497.5 Output Total 1700 / 1700 Balance 3342.5 / 3142.5 2580.0 / 2580.0 1497.5 / 1497.5 Lab / Micro Data 01/29/24 04:35 01/29/24 04:35 Labs: Laboratory Results - last 24 hr 01/28/24 11:35: POC Glucose 97 01/28/24 11:57: WBC 8.5, RBC 3.42 L, Hgb 9.8 L, Hct 31.4 L, MCV 91.8, MCH 28.7, MCHC 31.2 L, RDW Std Deviation 46.0 H, RDW Coeff of Megan 13.7, Plt Count 266, MPV 8.5, Immature Gran % (Auto) 0.700, Neut % (Auto) 74.0 H, Lymph % (Auto) 14.4 L, [place] % (Auto) 7.3, Eos % (Auto) 3.1, Baso % (Auto) 0.5, Absolute Neuts (auto) 6.3, Absolute Lymphs (auto) 1.22, Nucleated RBC % 0 01/28/24 13:28: POC Glucose 139 H 01/28/24 16:25: POC Glucose 112 H 01/28/24 21:31: POC Glucose 127 H 01/29/24 04:35: WBC 8.6, RBC 3.28 L, Hgb 9.5 L, Hct 30.5 L, MCV 93.0, MCH 29.0, MCHC 31.1 L, RDW Std Deviation 46.9 H, RDW Coeff of Megan 13.8, Plt Count 270, MPV 8.5, Sodium 138, Potassium 3.3 L, Chloride 107, Carbon Dioxide 23.0, Anion Gap 8, BUN 5 L, Creatinine 0.66, Estim Creat Clear Calc 122.11, Est GFR (MDRD) Af Amer 122, Est GFR (MDRD) Non-Af 101, BUN/Creatinine Ratio 7.6 L, Glucose 140 H, Calcium 8.6, Total Bilirubin 0.50, AST 57 H, ALT 168 H, Alkaline Phosphatase 127 H, Total Protein 6.7, Albumin 2.5 L, Globulin 4.2, Albumin/Globulin Ratio 0.6 L 01/29/24 06:39: POC Glucose 132 H Radiography Diagnostic Testing: Radiology Impression Endo Retro Cholangiopancreatogram 01/28/24 08:00 IMPRESSION: undefined KUB X-Ray 01/28/24 08:57 IMPRESSION: No acute abdominal or pelvic process Abnormal appearing IVC filter is noted on recent CT. Electronically Signed: David Avalos MD at 13:41 EDT , Physical Exam Narrative Seen and examined. Patient still has abdominal cramps feel gaseous distention. Her last bowel m ovement was around /Tuesday. Physical exam General: Alert, Oriented x3, Cooperative, morbid obesity BMI 43.9 kg/m? HEENT: Atraumatic, PERRLA, EOMI, Normocephalic Oral: No Gingival or Mucosal Lesions/ Ulcerations Neck: Supple, No JVD, Negative Carotid Bruits Chest wall/Lungs: Air entry diminished in bilateral lung bases. No crepitation/rhonchi Cardiovascular: Regular rate, Regular Rhythm, Normal S1, Normal S2, No M/G/R Abdomen: Bowel Sounds Present, Soft, Non Tender, mild abdominal distention seems gastric/tympanic : No dysuria. No renal angle tenderness. No suprapubic tenderness. Extremities: No edema, Capillary Refill Less than 3 Seconds Skin: No rashes, No breakdown Musculoskeletal: No Tenderness to Palpation of Joints or Extremities Neurological: Cranial nerves II-XII grossly intact, DTR 2+/4. No acute focal neurological deficit. Psych/Mental Status: Flat affect. Assessment & Plan Assessment/Plan (1) Acute on chronic pancreatitis: (2) Transaminitis: (3) Abdominal pain: QUALIFIERS: Abdominal location: unspecified location Qualified Code(s): R10.9 - Unspecified abdominal pain (4) Intractable nausea and vomiting: (5) Diarrhea: QUALIFIERS: Diarrhea type: unspecified type Qualified Code(s): R19.7 - Diarrhea, unspecified (6) Dehydration: (7) History of drug abuse: (8) History of alcohol abuse: PLAN: Plan Acute on chronic Pancreatitis with prior necrotizing pseudocyst * lipase only 24. However, her lipase levels have never been too high, likely due to chronic pancreatitis. * Treat supportively with IVF and pain control. * GI consult * CT showed inflammation around the head of the pancreas on the . US was limited due to bowel overlap and could not see the pancreas. * MRCP ordered was limited due to artifact. Personally reviewed medical records from through [facility]. Last MRCp 11/09/2023: Increase in size of pancreatic pseudocyst involving the head and body. Suggestive of a pseudocyst in patient with prior pancreatitis. There is main pancreatic ductal dilation in the tail likely postobstructive in nature. * Other possibilities for abdominal pain could be enteritis. * GI evaluated. Plan on ERCP today +/- stent. 01/28:Patient had ERCP on 01/27. Patient is stated she had cholecystectomy in [place] and had surgical injury in the bile duct. At that time she was found next-day bile in the intraperitoneal space and was managed. Possible stricture in the bile duct. Mild abdominal cramps with gastric distention. Related to constipation. Started on senna S. Simethicone started. Patient on lactulose at home that might give stool for mentation and gaseous distention. Impressions : - Choledocholithiasis was found. Partial removal was accomplished with biliary sphincterotomy; a stent was inserted. - A biliary sphincterotomy was performed. - The biliary tree was swept. - Common bile duct was successfully dilated. - One temporary stent was placed into the common bile duct. Chronic portal vein thrombosis * known coagulopathy due to factor V Leiden deficiency and h/o VTE * therapeutic-dosing of enoxaparin on hold for procedure. Resume post-ERCP. Acute anemia * unclear significance. Hg dropped from 12 to 9.6. No obvious source at this time. * 01/28: Hemoglobin similar to yesterday. No obvious source found. Chronic conditions: * History of alcohol abuse (quit 2013); with chronic pancreatitis. Alcohol level negative * Polysubstance abuse history: U tox positive for cannabinoids and opioids that has been positive in previous studies 2. * Obesity Class III: complicates management. Long-term weight loss advised. * DM-2: a1c 7.1. At home takes 53 units of glargine daily and 18 of aspart TID. Given that she is currently NPO, prandial insulin held. Glargine decreased to 25/d. SSI Q6h while NPO. * 01/28: Glucose is controlled. * Essential hypertension: stable. - Resume home regimen plus give IV hydralazine as needed for systolic blood pressure greater than 160 mmHg. * Hyperlipidemia: hold statin. * Chronic CHF - unclear type. Compensated. No need for echocardiogram at this time. * History of CVA: unclear type. Stable. * Seizure disorder; on divalproex - Valproic acid level low. No change to therapy at this time. * History of herpes: unknown type. Continue valganciclovir. * GERD - Continue PPI IV. * Depression with anxiety - continue priro aripiprazole, doxepin DVT prophylaxis -not indicated as patient is already anticoagulated. Charges/Coding Visit Charges Inpatient E&M: 68205 Subs Hosp L2
[2024-01-29 08:51] VITALS: BP 145/92; PULSE 88; RESP 16; TEMP 37; O2SAT 97
[2024-01-29] MEDS: Potassium Chloride Oral Tablet 20 MEQ 40 MEQ PO ×3 (09:13→16:22)
[2024-01-29] MEDS: HYDROmorphone 1 MG/ML Syringe IV ×3 (09:14→17:52)
[2024-01-29] MEDS: Benztropine Mesylate 0.5 MG TABLET PO ×2 (09:15→20:23)
[2024-01-29] MEDS: ARIPiprazole 10 MG Tablet PO (09:15)
[2024-01-29] MEDS: cloNIDine HCl 0.2 MG Tablet PO (09:16)
[2024-01-29] MEDS: Acyclovir 200 MG Capsule 400 MG PO ×2 (09:16→20:26)
[2024-01-29] MEDS: Divalproex Sodium 250 MG Tablet PO ×2 (09:17→20:23)
[2024-01-29] MEDS: Venlafaxine XR 75 MG Capsule PO (09:17)
[2024-01-29] MEDS: Insulin Glargine-YFGN 100 UNIT/ML Pen 25 UNIT SC (09:18)
[2024-01-29] MEDS: Enoxaparin 100 MG/ML Syringe SC ×2 (09:20→20:23)
[2024-01-29 09:21] VITALS: PULSE 88
[2024-01-29] MEDS: Pantoprazole Sodium 40 MG in 0.9% Normal Saline (100mL MB+) 100 ML 330 MG IV (09:21)
[2024-01-29] MEDS: Metoprolol(XL)Succ 25 MG Tablet PO (09:21)
[2024-01-29] MEDS: Lidocaine 5% Patch 1 PATCH TOPICAL (09:35)
[2024-01-29] MEDS: BMX LIQUID 180 ML 10 ML PO (11:49)
[2024-01-29] MEDS: NYSTATIN 500,000 UNIT/5 ML UDC 500000 UNIT PO ×3 (13:36→20:24)
[2024-01-29] MEDS: Ondansetron 4 MG/2 ML Vial IV ×2 (13:42→20:18)
[2024-01-29 13:58] VITALS: BP 150/87; PULSE 80; RESP 16; TEMP 36.9; O2SAT 96
[2024-01-29] MEDS: SimETHICONE 80 MG Chewable Tablet 160 MG PO (16:19)
[2024-01-29] MEDS: Senna/Docusate Sodium 1 Tablet 2 TABLET PO ×2 (16:20→20:25)
[2024-01-29] MEDS: Nystatin Powder 15gm Bottle 1 APPLIC TOPICAL ×2 (16:21→20:28)
[2024-01-29 16:59] LABS: Bedside Glucose 82 mg/dL (74-106)
[2024-01-29 20:12] VITALS: BP 151/73; PULSE 81; RESP 22; TEMP 36.9; O2SAT 97
[2024-01-29] MEDS: Venlafaxine XR 150 MG Capsule PO (20:23)
[2024-01-29] MEDS: Doxepin Hydrochloride 10 MG Capsule PO (20:25)
[2024-01-29] MEDS: Fenofibrate 145 MG Tablet PO (20:26)
[2024-01-29] MEDS: 0.9% Saline Lock 10 ML Syringe IV (20:28)
[2024-01-29] MEDS: MELATONIN 10 MG TABLET 5 MG PO (20:36)
[2024-01-29 21:28] LABS: Bedside Glucose 103 mg/dL (74-106)
[2024-01-29 23:16] LABS: Bedside Glucose 86 mg/dL (74-106)
[2024-01-29 23:59] VITALS: BP 130/87; PULSE 79; RESP 18; TEMP 36.9; O2SAT 96
[2024-01-30] MEDS: Scopolamine 1mg/72hr Patch 1 PATCH TD (00:05)
[2024-01-30] MEDS: SimETHICONE 80 MG Chewable Tablet 160 MG PO ×4 (00:05→16:34)
[2024-01-30] MEDS: HYDROmorphone 1 MG/ML Syringe IV ×3 (00:06→10:14)
[2024-01-30] MEDS: BMX LIQUID 180 ML 10 ML PO (02:07)
[2024-01-30] MEDS: Ketorolac 15 MG/ML Vial IV ×2 (02:51→12:42)
[2024-01-30] MEDS: oxyCODONE 5 MG Tablet 10 MG PO ×3 (02:51→14:54)
[2024-01-30 04:27] LABS: Absolute Lymphocyte Count 1.16 X10^3/uL (0.83-4.51); Absolute Neutrophil Count 6.9 X10^3/uL (2.0-7.7); Basophil# 0.04 X10^3/uL; Basophil% 0.4 % (0-1); Eosinophil# 0.23 X10^3/uL; Eosinophils% 2.5 % (0-5); Hematocrit 30.7 % (37-47); Hemoglobin 9.5 g/dL (12.0-15.0); Lymphocyte # 1.16 X10^3/ul (0.83-4.51); Lymphocyte % 12.9 % (19-41); Mean Corp Hgb Conc 30.9 g/dL (32-36); Mean Corpuscular Hgb 28.5 pg (27.0-32.0); Mean Corpuscular Volume 92.2 fL (81-99); Mean Platelet Vol. 8.5 fl (6.2-12.0); Monocyte# 0.56 X10^3/uL; Monocyte% 6.2 % (0-10); NRBC Flagged by Analyzer 0 % (0-5); Neutrophil # 6.93 X10^3/uL (2.7-7.7); Neutrophil % 76.9 % (47-70); Platelet Count 332 K/mm3 (150-450); RBC Distribution Width CV 13.8 % (11.6-14.6); RBC Distribution Width SD 47.1 fl (35.1-43.9); Red Blood Count 3.33 M/mm3 (4.2-5.4)
[2024-01-30 04:50] LABS: Anion Gap 9 (5-15); BUN 3 mg/dL (7-18); BUN/Creat Ratio 4.8 RATIO (10-20); Chloride 105 mmol/L (98-107); Creatinine, Serum 0.62 mg/dL (0.55-1.02); EST Glomerular Filtration Rate 109 mL/min (>60); Est Glom Filt Rate - Afr Amer 132 mL/min (>60); Estimated Creatinine Clearance 129.99 ml/min; Glucose 74 mg/dL (74-106); Potassium 3.6 mmol/L (3.5-5.1); Sodium Level 137 mmol/L (136-145)
[2024-01-30 05:17] VITALS: BP 140/83; PULSE 85; RESP 18; TEMP 36.7; O2SAT 93
[2024-01-30] MEDS: Acetaminophen 500 MG Tablet 1000 MG PO ×2 (05:23→13:52)
[2024-01-30 06:00] VITALS: BMI 43.3
[2024-01-30] MEDS: 0.9% Normal Saline (1000mL) 1,000 ML 150 ML IV ×2 (06:52→13:52)
[2024-01-30] MEDS: proMETHazine 25 MG/ML Syringe 12.5 MG IM (07:50)
[2024-01-30] MEDS: Potassium Chloride Oral Tablet 20 MEQ 40 MEQ PO ×2 (07:54→16:34)
[2024-01-30] MEDS: Pantoprazole Sodium 40 MG in 0.9% Normal Saline (100mL MB+) 100 ML 330 MG IV (07:56)
[2024-01-30] MEDS: cloNIDine HCl 0.2 MG Tablet PO (07:57)
[2024-01-30] MEDS: Senna/Docusate Sodium 1 Tablet 2 TABLET PO (07:57)
[2024-01-30] MEDS: Benztropine Mesylate 0.5 MG TABLET PO (07:57)
[2024-01-30] MEDS: Divalproex Sodium 250 MG Tablet PO (07:57)
[2024-01-30] MEDS: NYSTATIN 500,000 UNIT/5 ML UDC 500000 UNIT PO ×3 (07:58→16:34)
[2024-01-30] MEDS: Enoxaparin 100 MG/ML Syringe SC (07:59)
[2024-01-30 08:00] VITALS: PULSE 92
[2024-01-30] MEDS: Metoprolol(XL)Succ 25 MG Tablet PO (08:00)
[2024-01-30] MEDS: Lidocaine 5% Patch 1 PATCH TOPICAL (08:00)
[2024-01-30] MEDS: ARIPiprazole 10 MG Tablet PO (08:00)
[2024-01-30] MEDS: Acyclovir 200 MG Capsule 400 MG PO (08:01)
[2024-01-30] MEDS: Venlafaxine XR 75 MG Capsule PO (08:01)
[2024-01-30] MEDS: Insulin Glargine-YFGN 100 UNIT/ML Pen 25 UNIT SC (08:02)
[2024-01-30 09:05] VITALS: BP 126/74; PULSE 92; RESP 16; TEMP 36.4; O2SAT 94
--- NOTE | 2024-01-30 11:06 | PCM.DC ---
Discharge Instructions Diet Discharge Diet: Light diet - advance as tolerated Activity Discharge Activity: Return to Normal Activity Weight Bearing Status: Weight bearing as tolerated Dressing / Incision Call your doctor if you observe: Fever of 101 or Higher, Coldness, Increased Pain, Numbness or Tingling, Change in Color, Inability to urinate, Inability to have a bowel movement, Using more than 1 pad per hour, Shortness of breath, Dizziness, Fainting spells, Swelling in the ankles, Chest pain, Prolonged hiccupping, Increased palpitations (irregular heartbeat) and Calf discomfort Follow Up Care When: IN 2 WEEKS Test Results: Test results from this visit will be discussed in further detail at your follow-up appointment, if applicable. Discharge Plan Admission Admit Date/Time: 01/26/24 20:01 Primary Reason for Your Visit: Abd pain Attending Provider: Wyatt Collins Primary Care Provider: Rin Rivera NP Consulting Providers: Jermaine Tee; John Rmey Discharge Orders/Prescriptions Prescriptions: New simethicone 80 mg Tablet,Chewable 160 mg PO TIDPC Qty: 0 0RF Rx Instructions: [id number] sennosides-docusate sodium [Stool Softener-Stimulant Laxat] 8.6-50 mg Tablet 2 tab PO BID PRN (Reason: Acne) Qty: 0 0RF nystatin 100,000 unit/mL Suspension 500,000 unit PO 4X/DAY 7 Days Qty: 140 0RF nicotine 14 mg/24 hr Patch 24 Hour 14 mg transdermal DAILY 28 Days Qty: 28 0RF acetaminophen 500 mg Tablet 1,000 mg PO Q8 Qty: 0 0RF lidocaine HCl [Lidocaine Viscous] 2 % Solution 10 ml PO Q4H PRN PRN (Reason: MOUTH IRRITATION) 7 Days Qty: 600 0RF Continued omeprazole 40 mg capsule,delayed release(DR/EC) 40 mg PO BID enoxaparin 100 mg/mL syringe 100 mg subcut Q12H venlafaxine 75 mg capsule,extended release 24hr 75 mg PO QDAY hydroxyzine HCl 25 mg tablet 25 mg PO BID PRN (Reason: anxiety) Qty: 60 1RF furosemide 40 MG tablet 40 mg PO DAILY valacyclovir [Valtrex] 500 MG tablet 500 mg PO DAILY Linzess 290 mcg capsule 290 mcg PO DAILY methenamine hippurate [Hiprex] 1 gram Tablet 1 g PO QHS venlafaxine [Effexor XR] 150 mg Capsule,Extended Release 24hr 150 mg PO QHS cholecalciferol (vitamin D3) 1,250 mcg (50,000 unit) capsule 50,000 unit PO FR aripiprazole 10 mg tablet 10 mg PO DAILY benztropine 0.5 mg tablet 0.5 mg PO BID divalproex 250 mg tablet,delayed release (DR/EC) 250 mg PO Q12H clonidine HCl 0.2 mg tablet 0.2 mg PO QHS metoprolol succinate 25 mg tablet extended release 24 hr 25 mg PO DAILY promethazine 25 mg tablet 25 mg PO TID PRN (Reason: nausea and vomiting) 7 Days Qty: 21 0RF fenofibrate nanocrystallized 145 mg tablet 145 mg PO QHS melatonin 10 mg tablet 5 mg PO QHS PRN (Reason: sleep) (DME) pen needle, diabetic 31 gauge x 1/3 needle See Rx Instructions .Route Qty: 100 0RF Rx Instructions: As directed potassium chloride 20 mEq tablet extended release 20 meq PO TID nitrofurantoin monohyd/m-cryst [Macrobid] 100 mg capsule 100 mg PO DAILY PRN (Reason: after sex) lactulose 10 gram/15 mL solution 15 ml PO BID PRN (Reason: constipation) doxepin 10 mg capsule 10 mg PO QHS Qty: 30 1RF Changed insulin aspart U-100 [Novolog FlexPen U-100 Insulin] 100 unit/mL (3 mL) insulin pen 10 unit subcut TID 30 Days Qty: 0 0RF insulin glargine U-300 conc [Toujeo Max U-300 SoloStar] 300 unit/mL (3 mL) insulin pen 25 unit subcut DAILY 30 Days Qty: 0 0RF Held glipizide 10 mg tablet extended release 24hr 10 mg PO QDAY Hold Instructions: Hold if glucose less than 130 mg/dl Discontinued enoxaparin [Lovenox] 100 mg/mL syringe 100 mg subcut Q12H Referrals / Follow Up: Rin Rivera [employer], [employer] [Primary Care Provider] - Disposition Disposition (needs filled in before D/C Order can be placed): Home, Self Care
[2024-01-30 11:25] VITALS: BP 140/94; PULSE 80; RESP 16; TEMP 37.2; O2SAT 95
[2024-01-30 11:33] LABS: Bedside Glucose 78 mg/dL (74-106)
[2024-01-30] MEDS: Lactulose 20 GM/30 ML UDC 10 GM PO (13:53)
[2024-01-30] MEDS: Nystatin Powder 15gm Bottle 1 APPLIC TOPICAL (13:56)
[2024-01-30 16:17] VITALS: BP 135/75; PULSE 86; RESP 16; TEMP 36.9; O2SAT 94
--- NOTE | 2024-01-30 16:23 | DS.PCM_ITS ---
Providers Date of Admission: 01/26/24 Date of Discharge: 01/30/24 Primary Care Physician: AMIE Gardner Consultations 01/26/24 20:27 Consult: Gastroenterology Routine Consulting Provider: [facility] Reason for Consult: Recurrent pancreatitis EMERGENT Consult: No MD Notified: Yes Date Notified: 01/27/24 Time Notified: 06:03 Method of Notification: Text Reason For Visit: PANCREATITIS; RECURRENT WITH INTRACTABLE N/V Diagnosis Discharge Diagnosis (1) Acute on chronic pancreatitis: Status: Chronic Code(s): K85.90 - Acute pancreatitis without necrosis or infection, unspecified; K86.1 - Other chronic pancreatitis (2) Transaminitis: Status: Acute Code(s): R74.01 - Elevation of levels of liver transaminase levels (3) Abdominal pain: Status: Acute Code(s): R10.9 - Unspecified abdominal pain Qualifiers: Abdominal location: unspecified location Qualified Code(s): R10.9 - Unspecified abdominal pain (4) Intractable nausea and vomiting: Status: Acute Code(s): R11.2 - Nausea with vomiting, unspecified (5) Diarrhea: Status: Acute Code(s): R19.7 - Diarrhea, unspecified Qualifiers: Diarrhea type: unspecified type Qualified Code(s): R19.7 - Diarrhea, unspecified (6) Dehydration: Status: Acute Code(s): E86.0 - Dehydration (7) History of drug abuse: Status: Chronic Code(s): F19.11 - Other psychoactive substance abuse, in remission (8) History of alcohol abuse: Status: Chronic Code(s): F10.11 - Alcohol abuse, in remission Plan Acute on chronic Pancreatitis with prior necrotizing pseudocyst * lipase only 24. However, her lipase levels have never been too high, likely due to chronic pancreatitis. * Treat supportively with IVF and pain control. * GI consult * CT showed inflammation around the head of the pancreas on the . US was limited due to bowel overlap and could not see the pancreas. * MRCP ordered was limited due to artifact. Personally reviewed medical records from through [facility]. Last MRCp 11/09/2023: Increase in size of pancreatic pseudocyst involving the head and body. Suggestive of a pseudocyst in patient with prior pancreatitis. There is main pancreatic ductal dilation in the tail likely postobstructive in nature. * Other possibilities for abdominal pain could be enteritis. * GI evaluated. Plan on ERCP today +/- stent. 01/28:Patient had ERCP on 01/27. Patient is stated she had cholecystectomy in [place] and had surgical injury in the bile duct. At that time she was found next -day bile in the intraperitoneal space and was managed. Possible stricture in the bile duct. Mild abdominal cramps with gastric distention. Related to constipation. Started on senna S. Simethicone started. Patient on lactulose at home that might give stool for mentation and gaseous distention. Impressions : - Choledocholithiasis was found. Partial removal was accomplished with biliary sphincterotomy; a stent was inserted. - A biliary sphincterotomy was performed. - The biliary tree was swept. - Common bile duct was successfully dilated. - One temporary stent was placed into the common bile duct. 01/29: Patient complained of abdominal pain but not accompanied objectively by tenderness or facial expression. Patient asked for Dilaudid 0.5 mg for moderate pain and 1 mg for severe pain respectively, Toradol and oxycodone before the scheduled time. Patient had big bowel movement with the Linzess. Getting discharged. Chronic portal vein thrombosis * known coagulopathy due to factor V Leiden deficiency and h/o VTE * therapeutic-dosing of enoxaparin on hold for procedure. Resume post-ERCP. 02/15: Enoxaparin was resumed after the procedure. Acute anemia * unclear significance. Hg dropped from 12 to 9.6. No obvious source at this time. * 01/28: Hemoglobin similar to yesterday. No obvious source found. Chronic conditions: * History of alcohol abuse (quit 2013); with chronic pancreatitis. Alcohol level negative * Polysubstance abuse history: U tox positive for cannabinoids and opioids that has been positive in previous studies 2. * Obesity Class III: complicates management. Long-term weight loss advised. * DM-2: a1c 7.1. At home takes 53 units of glargine daily and 18 of aspart TID. Given that she is currently NPO, prandial insulin held. Glargine decreased to 25/d. SSI Q6h while NPO. 01/28: Glucose is controlled. 01/29: Dose of insulin short acting and long-acting was decreased as glucose was 74. Glipizide was held. * Essential hypertension: stable. - Resume home regimen plus give IV hydralazine as needed for systolic blood pressure greater than 160 mmHg. * Hyperlipidemia: hold statin. * Chronic CHF - unclear type. Compensated. No need for echocardiogram at this time. * History of CVA: unclear type. Stable. * Seizure disorder; on divalproex - Valproic acid level low. No change to therapy at this time. * History of herpes: unknown type. Continue valganciclovir. * GERD - Continue PPI IV. * Depression with anxiety - continue priro aripiprazole, doxepin DVT prophylaxis -not indicated as patient is already anticoagulated. Discharge medication reconciliation done. Discharge follow-up instructions completed. Discharge process discussed with the patient and all questions were answered to patient's satisfaction. Follow with PCP in 1 to 2 weeks Total time spent, exact 35 minutes on discharge meds reconciliation, examination, coordination of care with nurses and ancillary staff, review of imaging and blood test and discussion with the patient on follow-up instructions. Medications at Discharge Home Medications furosemide 40 mg tablet 40 mg PO DAILY water pill 09/10/16 valacyclovir 500 mg tablet (Valtrex) 500 mg PO DAILY herpes 10/25/18 linaclotide 290 mcg capsule (Linzess) 290 mcg PO DAILY bowels 05/28/21 methenamine hippurate 1 gram tablet (Hiprex) 1 g PO QHS bladder infections 12/03/21 venlafaxine 150 mg capsule,extended release 24 hr (Effexor XR) 150 mg PO QHS mood 12/03/21 cholecalciferol (vitamin D3) 1,250 mcg (50,000 unit) capsule 50,000 unit PO FR supplement 02/05/23 omeprazole 40 mg capsule,delayed release 40 mg PO BID 02/23/23 fenofibrate nanocrystallized 145 mg tablet 145 mg PO QHS 05/07/23 aripiprazole 10 mg tablet 10 mg PO DAILY MOOD 06/23/23 benztropine 0.5 mg tablet 0.5 mg PO BID 06/23/23 divalproex 250 mg tablet,delayed release 250 mg PO Q12H 06/23/23 clonidine HCl 0.2 mg tablet 0.2 mg PO QHS 07/22/23 metoprolol succinate 25 mg tablet,extended release 24 hr 25 mg PO DAILY 07/22/23 melatonin 10 mg tablet 5 mg PO QHS PRN sleep 08/17/23 pen needle, diabetic 31 gauge x 1/3 #100 ea 08/18/23 promethazine 25 mg tablet 25 mg PO TID PRN nausea and vomiting 7 days #21 tabs 10/23/23 enoxaparin 100 mg/mL subcutaneous syringe 100 mg subcut Q12H 01/19/24 glipizide 10 mg tablet, extended release 24 hr 10 mg PO QDAY 01/19/24 hydroxyzine HCl 25 mg tablet 25 mg PO BID PRN anxiety #60 tabs 01/19/24 venlafaxine 75 mg capsule,extended release 24 hr 75 mg PO QDAY 01/19/24 doxepin 10 mg capsule 10 mg PO QHS #30 caps 01/25/24 lactulose 10 gram/15 mL oral solution 15 ml PO BID PRN constipation 01/26/24 nitrofurantoin monohydrate/macrocrystals 100 mg capsule (Macrobid) 100 mg PO DAILY PRN after sex 01/26/24 potassium chloride 20 mEq tablet,extended release 20 meq PO TID 01/26/24 acetaminophen 500 mg tablet 1,000 mg (2 x 500 mg) PO Q8 #0 tabs 01/30/24 insulin aspart U-100 100 unit/mL (3 mL) subcutaneous pen (Novolog FlexPen U-100 Insulin aspart) 10 unit (0.1 mL) subcut TID 30 days #0 mL 01/30/24 insulin glargine U-300 conc 300 unit/mL (3 mL) subcutaneous pen (Toujeo Max U- 300 SoloStar) 25 unit (0.0833 mL) subcut DAILY 30 days #0 mL 01/30/24 lidocaine HCl 2 % mucosal solution (Lidocaine Viscous) 10 ml PO Q4H PRN PRN MOUTH IRRITATION 1 week #600 mL 01/30/24 nicotine 14 mg/24 hr daily transdermal patch 14 mg transdermal DAILY 28 days #28 ea 01/30/24 nystatin 100,000 unit/mL oral suspension 500,000 unit (5 mL) PO 4X/DAY 7 days #140 mL 01/30/24 sennosides 8.6 mg-docusate sodium 50 mg tablet (Stool Softener-Stimulant La xative) 2 tab PO BID PRN Acne #0 tabs 01/30/24 simethicone 80 mg chewable tablet 160 mg (2 x 80 mg) PO TIDPC #0 tabs 01/30/24 Physical Exam Narrative Seen and examined. Patient has abdominal cramps. Not accompanied facial expression or rebound tenderness. Had good bowel movement after Legius. Physical exam General: Alert, Oriented x3, Cooperative, morbid obesity BMI 43.9 kg/m? HEENT: Atraumatic, PERRLA, EOMI, Normocephalic Oral: No Gingival or Mucosal Lesions/ Ulcerations Neck: Supple, No JVD, Negative Carotid Bruits Chest wall/Lungs: Air entry diminished in bilateral lung bases. No crepitation/rhonchi Cardiovascular: Regular rate, Regular Rhythm, Normal S1, Normal S2, No M/G/R Abdomen: Bowel Sounds Present, Soft, Non Tender, mild abdominal distention seems gastric/tympanic : No dysuria. No renal angle tenderness. No suprapubic tenderness. Extremities: No edema, Capillary Refill Less than 3 Seconds Skin: No rashes, No breakdown Musculoskeletal: No Tenderness to Palpation of Joints or Extremities Neurological: Cranial nerves II-XII grossly intact, DTR 2+/4. No acute focal neurological deficit. Psych/Mental Status: Flat affect. Weight / BMI Weight Weight: 244 lb 11.41 oz Body Mass Index (BMI) 43.3 ABG / Lab / Microbiology Data 01/30/24 03:55 01/30/24 03:55 Laboratory: Laboratory Results - last 24 hr 01/29/24 11:37: POC Glucose 103 01/29/24 16:16: POC Glucose 82 01/29/24 20:40: POC Glucose 86 01/30/24 03:55: WBC 9.0, RBC 3.33 L, Hgb 9.5 L, Hct 30.7 L, MCV 92.2, MCH 28.5, MCHC 30.9 L, RDW Std Deviation 47.1 H, RDW Coeff of Megan 13.8, Plt Count 332, MPV 8.5, Immature Gran % (Auto) 1.100 H, Neut % (Auto) 76.9 H, Lymph % (Auto) 12.9 L , [place] % (Auto) 6.2, Eos % (Auto) 2.5, Baso % (Auto) 0.4, Absolute Neuts (auto) 6.9, Absolute Lymphs (auto) 1.16, Nucleated RBC % 0, Sodium 137, Potassium 3.6, Chloride 105, Carbon Dioxide 23.0, Anion Gap 9, BUN 3 L, Creatinine 0.62, Estim Creat Clear Calc 129.99, Est GFR (MDRD) Af Amer 132, Est GFR (MDRD) Non-Af 109, BUN/Creatinine Ratio 4.8 L, Glucose 74, Calcium 9.0 01/30/24 11:11: POC Glucose 78 D/C Instructions Discharge Diet: Light diet - advance as tolerated Weight Bearing Status: Weight bearing as tolerated Call your doctor if you observe: Fever of 101 or Higher, Coldness, Increased Pain, Numbness or Tingling, Change in Color, Inability to urinate, Inability to have a bowel movement, Using more than 1 pad per hour, Shortness of breath, Dizziness, Fainting spells, Swelling in the ankles, Chest pain, Prolonged hiccupping, Increased palpitations (irregular heartbeat) and Calf discomfort When: IN 2 WEEKS Meaningful Use Info Meaningful Use Meaningful Use Diagnoses (Choose all that apply): None applicable Ischemic Stroke Statin Dosing Therapy Reference: STATIN DOSE THERAPY REFERENCE: * Patients > 75 years receive moderate or high dose statin therapy. * Patients 75 years or YOUNGER should receive HIGH intensity statin dose unless contraindicated. You will be required to document reason for non-treatment if statin daily dose does not meet guidelines. HIGH DOSE STATIN THERAPY DAILY Atorvastatin > than or = to 40 mg Rosuvastatin > than or = to 20 mg Amlodipine + Atorvastatin > than or = to 2.5/40 mg Ezetimibe + Simvastatin 10/80 mg Simvastatin 80mg Discharge Plan Admission Admit Date/Time: 01/26/24 20:01 Primary Reason for Your Visit: Abd pain Attending Provider: Wyatt Collins Primary Care Provider: Rin Rivera [facility] Consulting Providers: Jermaine Tee; John Remy Discharge Orders/Prescriptions Prescriptions: New simethicone 80 mg Tablet,Chewable 160 mg PO TIDPC Qty: 0 0RF Rx Instructions: [id number] sennosides-docusate sodium [Stool Softener-Stimulant Laxat] 8.6-50 mg Tablet 2 tab PO BID PRN (Reason: Acne) Qty: 0 0RF nystatin 100,000 unit/mL Suspension 500,000 unit PO 4X/DAY 7 Days Qty: 140 0RF nicotine 14 mg/24 hr Patch 24 Hour 14 mg transdermal DAILY 28 Days Qty: 28 0RF acetaminophen 500 mg Tablet 1,000 mg PO Q8 Qty: 0 0RF lidocaine HCl [Lidocaine Viscous] 2 % Solution 10 ml PO Q4H PRN PRN (Reason: MOUTH IRRITATION) 7 Days Qty: 600 0RF Continued omeprazole 40 mg capsule,delayed release(DR/EC) 40 mg PO BID enoxaparin 100 mg/mL syringe 100 mg subcut Q12H venlafaxine 75 mg capsule,extended release 24hr 75 mg PO QDAY hydroxyzine HCl 25 mg tablet 25 mg PO BID PRN (Reason: anxiety) Qty: 60 1RF furosemide 40 MG tablet 40 mg PO DAILY valacyclovir [Valtrex] 500 MG tablet 500 mg PO DAILY Linzess 290 mcg capsule 290 mcg PO DAILY methenamine hippurate [Hiprex] 1 gram Tablet 1 g PO QHS venlafaxine [Effexor XR] 150 mg Capsule,Extended Release 24hr 150 mg PO QHS cholecalciferol (vitamin D3) 1,250 mcg (50,000 unit) capsule 50,000 unit PO FR aripiprazole 10 mg tablet 10 mg PO DAILY benztropine 0.5 mg tablet 0.5 mg PO BID divalproex 250 mg tablet,delayed release (DR/EC) 250 mg PO Q12H clonidine HCl 0.2 mg tablet 0.2 mg PO QHS metoprolol succinate 25 mg tablet extended release 24 hr 25 mg PO DAILY promethazine 25 mg tablet 25 mg PO TID PRN (Reason: nausea and vomiting) 7 Days Qty: 21 0RF fenofibrate nanocrystallized 145 mg tablet 145 mg PO QHS melatonin 10 mg tablet 5 mg PO QHS PRN (Reason: sleep) (DME) pen needle, diabetic 31 gauge x 1/3 needle See Rx Instructions .Route Qty: 100 0RF Rx Instructions: As directed potassium chloride 20 mEq tablet extended release 20 meq PO TID nitrofurantoin monohyd/m-cryst [Macrobid] 100 mg capsule 100 mg PO DAILY PRN (Reason: after sex) lactulose 10 gram/15 mL solution 15 ml PO BID PRN (Reason: constipation) doxepin 10 mg capsule 10 mg PO QHS Qty: 30 1RF Changed insulin aspart U-100 [Novolog FlexPen U-100 Insulin] 100 unit/mL (3 mL) insulin pen 10 unit subcut TID 30 Days Qty: 0 0RF insulin glargine U-300 conc [Toujeo Max U-300 SoloStar] 300 unit/mL (3 mL) insulin pen 25 unit subcut DAILY 30 Days Qty: 0 0RF Held glipizide 10 mg tablet extended release 24hr 10 mg PO QDAY Hold Instructions: Hold if glucose less than 130 mg/dl Discontinued enoxaparin [Lovenox] 100 mg/mL syringe 100 mg subcut Q12H Referrals / Follow Up: Rin Rivera NP, [facility] [Primary Care Provider] - FriendLeonidas DO [Med Staff - Active Staff] - Within 1 Month Disposition Disposition (needs filled in before D/C Order can be placed): Home, Self Care Charges/Coding Visit Charges Inpatient E&M: 29076 Disch Hosp >30min
[2024-01-30 16:33] LABS: Bedside Glucose 80 mg/dL (74-106)
--- NOTE | 2024-01-30 16:55 | PN.GI_ITS ---
Subjective Subjective Patient underwent ERCP was discovered to have choledocholithiasis and a biliary stricture likely secondary to chronic pancreatitis in the head of the pancreas. She is recent drainage of pseudocyst in the pancreas due to recurrent pancreatitis. She is feeling a lot better wants to go home today. Objective Data Objective Data Vital Signs: Vital Signs Temp Pulse Resp BP Pulse Ox O2 Del Method O2 Flow Rate 98.4 F 86 16 135/75 H 94 Room Air 6 01/30/24 16:17 01/30/24 16:17 01/30/24 16:17 01/30/24 16:17 01/30/24 16:17 01/30/24 16:17 01/28/24 13:25 Oxygen Flow Rate (L/min) 6 Oxygen Delivery Method Room Air Weight: 244 lb 11.41 oz Body Mass Index (BMI) 43.3 Intake & Output: Intake and Output for Last 24 Hours 01/28/24 01/29/24 01/30/24 23:59 23:59 23:59 Intake Total 4280.0 / 4280.0 4557.5 / 4557.5 2410 / 2410 Output Total 1700 / 1700 Balance 2580.0 / 2580.0 4557.5 / 4557.5 2410 / 2410 Lab / Micro Data 01/30/24 03:55 01/30/24 03:55 Labs: Laboratory Results - last 24 hr 01/29/24 11:37: POC Glucose 103 01/29/24 16:16: POC Glucose 82 01/29/24 20:40: POC Glucose 86 01/30/24 03:55: WBC 9.0, RBC 3.33 L, Hgb 9.5 L, Hct 30.7 L, MCV 92.2, MCH 28.5, MCHC 30.9 L, RDW Std Deviation 47.1 H, RDW Coeff of Megan 13.8, Plt Count 332, MPV 8.5, Immature Gran % (Auto) 1.100 H, Neut % (Auto) 76.9 H, Lymph % (Auto) 12.9 L , [place] % (Auto) 6.2, Eos % (Auto) 2.5, Baso % (Auto) 0.4, Absolute Neuts (auto) 6.9, Absolute Lymphs (auto) 1.16, Nucleated RBC % 0, Sodium 137, Potassium 3.6, Chloride 105, Carbon Dioxide 23.0, Anion Gap 9, BUN 3 L, Creatinine 0.62, Estim Creat Clear Calc 129.99, Est GFR (MDRD) Af Amer 132, Est GFR (MDRD) Non-Af 109, BUN/Creatinine Ratio 4.8 L, Glucose 74, Calcium 9.0 01/30/24 11:11: POC Glucose 78 01/30/24 16:01: POC Glucose 80 Physical Exam Narrative Seen and examined. Patient has abdominal cramps. Not accompanied facial expression or rebound tenderness. Had good bowel movement after Legius. Physical exam General: Alert, Oriented x3, Cooperative, morbid obesity BMI 43.9 kg/m? HEENT: Atraumatic, PERRLA, EOMI, Normocephalic Oral: No Gingival or Mucosal Lesions/ Ulcerations Neck: Supple, No JVD, Negative Carotid Bruits Chest wall/Lungs: Air entry diminished in bilateral lung bases. No crepitation/rhonchi Cardiovascular: Regular rate, Regular Rhythm, Normal S1, Normal S2, No M/G/R Abdomen: Bowel Sounds Present, Soft, Non Tender, mild abdominal distention seems gastric/tympanic : No dysuria. No renal angle tenderness. No suprapubic tenderness. Extremities: No edema, Capillary Refill Less than 3 Seconds Skin: No rashes, No breakdown Musculoskeletal: No Tenderness to Palpation of Joints or Extremities Neurological: Cranial nerves II-XII grossly intact, DTR 2+/4. No acute focal neurological deficit. Psych/Mental Status: Flat affect. Assessment & Plan Assessment/Plan (1) Acute on chronic pancreatitis: (2) Transaminitis: (3) Abdominal pain: QUALIFIERS: Abdominal location: unspecified location Qualified Code(s): R10.9 - Unspecified abdominal pain (4) Intractable nausea and vomiting: (5) Diarrhea: QUALIFIERS: Diarrhea type: unspecified type Qualified Code(s): R19.7 - Diarrhea, unspecified (6) Dehydration: (7) History of drug abuse: (8) History of alcohol abuse: PLAN: Plan Acute on chronic Pancreatitis with prior necrotizing pseudocyst * lipase only 24. However, her lipase levels have never been too high, likely due to chronic pancreatitis. * Treat supportively with IVF and pain control. * GI consult * CT showed inflammation around the head of the pancreas on the . US was limited due to bowel overlap and could not see the pancreas. * MRCP ordered was limited due to artifact. Personally reviewed medical records from through [facility]. Last MRCp 11/09/2023: Increase in size of pancreatic pseudocyst involving the head and body. Suggestive of a pseudocyst in patient with prior pancreatitis. There is main pancreatic ductal dilation in the tail likely postobstructive in nature. * Other possibilities for abdominal pain could be enteritis. Chronic portal vein thrombosis * known coagulopathy due to factor V Leiden deficiency and h/o VTE * therapeutic-dosing of enoxaparin on hold for procedure. Resume post-ERCP. Acute anemia * unclear significance. Hg dropped from 12 to 9.6. No obvious source at this time. Cannot rule out lab error. * Monitor for now. Recheck this afternoon. Chronic conditions: * History of alcohol abuse (quit 2013); with chronic pancreatitis. Alcohol level negative * Polysubstance abuse history: check UDS * Obesity Class III: complicates management. Long-term weight loss advised. * DM-2: a1c 7.1. At home takes 53 units of glargine daily and 18 of aspart TID. Given that she is currently NPO, prandial insulin held. Glargine decreased to 25/d. SSI Q6h while NPO. * Essential hypertension: stable. - Resume home regimen plus give IV hydralazine as needed for systolic blood pressure greater than 160 mmHg. * Hyperlipidemia: hold statin. * Chronic CHF - unclear type. Compensated. No need for echocardiogram at this time. * History of CVA: unclear type. Stable. * Seizure disorder; on divalproex - Valproic acid level low. No change to therapy at this time. * History of herpes: unknown type. Continue valganciclovir. * GERD - Continue PPI IV. * Depression with anxiety - continue priro aripiprazole, doxepin DVT prophylaxis -not indicated as patient is already anticoagulated. Charges/Coding Visit Charges Inpatient E&M: 98105 Subs Hosp L3
[2024-01-30] MEDS: 0.9% Saline Lock 10 ML Syringe IV (18:03)
== END 2024-01-30 18:10 | disposition home or self-care (01) | DRG 438 ==
LOC: ED 20:02 → MS3 20:49
PROVIDERS: Anesthesiology; Internal Medicine Gastroenterology; Admitting Provider Internal Medicine; Emergency Provider Emergency Medicine; PCP Nurse Practitioner Family; Referring Provider Internal Medicine; Visit Provider Internal Medicine
PROC: 0FC98ZZ Extirpation of Matter from Common Bile Duct, Via Natural or Artificial Opening Endoscopic (ICD-10-PCS; CPT 43260; principal; 2024-01-28 12:15)
DX: K85.90 Acute pancreatitis without necrosis or infection, unspecified (principal); I81 Portal vein thrombosis; K80.51 Calculus of bile duct without cholangitis or cholecystitis with obstruction; Z68.41 Body mass index [BMI] 40.0-44.9, adult; I50.32 Chronic diastolic (congestive) heart failure; D68.51 Activated protein C resistance; K86.3 Pseudocyst of pancreas; K83.8 Other specified diseases of biliary tract; E11.9 Type 2 diabetes mellitus without complications; D64.9 Anemia, unspecified; I11.0 Hypertensive heart disease with heart failure; G40.909 Epilepsy, unspecified, not intractable, without status epilepticus; F19.11 Other psychoactive substance abuse, in remission; E66.01 Morbid (severe) obesity due to excess calories; K86.1 Other chronic pancreatitis; F10.11 Alcohol abuse, in remission; F41.8 Other specified anxiety disorders; K21.9 Gastro-esophageal reflux disease without esophagitis; F17.200 Nicotine dependence, unspecified, uncomplicated; E86.0 Dehydration; E78.5 Hyperlipidemia, unspecified; F12.90 Cannabis use, unspecified, uncomplicated; R16.0 Hepatomegaly, not elsewhere classified; R74.01 Elevation of levels of liver transaminase levels; Z90.49 Acquired absence of other specified parts of digestive tract; Z86.16 Personal history of COVID-19; Z79.01 Long term (current) use of anticoagulants; Z86.73 Personal history of transient ischemic attack (TIA), and cerebral infarction without residual deficits; Z86.718 Personal history of other venous thrombosis and embolism
CPT/HCPCS: 36415; 36591; 74018; 74177; 74181; 74330; 76000; 76705; 80048; 80053; 80061; 80076; 80164; 80307; 80320; 81001; 81025; 82962; 83036; 83690; 83735; 84100; 85025; 85027; 85610; 85730; 93005; 96374; 96375; 96376; 99284; 99285; 99406; J7030; Q9967; A4216; C1769; G0480; J2405

== ENCOUNTER 2024-02-03 17:26 | Inpatient (IN) | payer MEDICARE, SELFPAY ==
[2024-02-03 17:26] VITALS: BP 170/97; PULSE 119; RESP 18; TEMP 36.4; O2SAT 98; BMI 42.9
--- NOTE | 2024-02-03 18:02 | EX.ED.DYSGE1 ---
HPI <AMIE Clark - Last Filed: 02/03/24 22:26> History of Present Illness Chief Complaint: Abd Pain Narrative Narrative: Patient is a 48-year-old female with history of pancreatitis, who was recently admitted on January 25 discharged on January 29, had ERCP. Patient states that she was developing fevers on the and had a 101 fever today, she spoke with Dr. Mello, and since the patient is consistently having abdominal pain, is well as fever and chills, he recommended her come to the emergency department. Patient does come to the emergency department often for these complaints. Patient denies any nausea or vomit however states the pain is severe. PFSH <AMIE Clark - Last Filed: 02/03/24 22:26> [facility] Medical History Anxiety Chronic constipation Depression DVT (deep venous thrombosis) Epilepsy Factor V Leiden mutation GERD (gastroesophageal reflux disease) History of CVA (cerebrovascular accident) History of pulmonary embolus (PE) Hyperlipidemia Hypertension Pancreatitis Presence of IVC filter Seizure disorder Smoker Stroke/cerebrovascular accident Substance abuse Vitamin D deficiency Home Medications ?Medication ?Instructions ?Recorded ?Last Taken ?Type furosemide 40 mg tablet 40 mg PO DAILY water pill 09/10/16 08/17/23 History valacyclovir 500 mg tablet 500 mg PO DAILY herpes 10/25/18 08/17/23 History (Valtrex) linaclotide 290 mcg capsule 290 mcg PO DAILY bowels 05/28/21 08/17/23 History (Linzess) methenamine hippurate 1 gram 1 g PO QHS bladder infections 12/03/21 08/16/23 History tablet (Hiprex) venlafaxine 150 mg 150 mg PO QHS mood 12/03/21 08/17/23 History capsule,extended release 24 hr (Effexor XR) cholecalciferol (vitamin D3) 1,250 50,000 unit PO FR supplement 02/05/23 08/12/23 History mcg (50,000 unit) capsule omeprazole 40 mg capsule,delayed 40 mg PO BID 02/23/23 08/17/23 History release fenofibrate nanocrystallized 145 145 mg PO QHS 05/07/23 08/16/23 History mg tablet aripiprazole 10 mg tablet 10 mg PO DAILY MOOD 06/23/23 08/17/23 History benztropine 0.5 mg tablet 0.5 mg PO BID 06/23/23 07/21/23 History divalproex 250 mg tablet,delayed 250 mg PO Q12H 06/23/23 08/17/23 History release clonidine HCl 0.2 mg tablet 0.2 mg PO QHS 07/22/23 08/17/23 History metoprolol succinate 25 mg 25 mg PO DAILY 07/22/23 08/17/23 History tablet,extended release 24 hr melatonin 10 mg tablet 5 mg PO QHS PRN sleep 08/17/23 Unknown History pen needle, diabetic 31 gauge x #100 ea 08/18/23 Unknown Rx 1/3 promethazine 25 mg tablet 25 mg PO TID PRN nausea and 10/23/23 Unknown Rx vomiting 7 days #21 tabs enoxaparin 100 mg/mL subcutaneous 100 mg subcut Q12H 01/19/24 Unknown History syringe glipizide 10 mg tablet, extended 10 mg PO QDAY 01/19/24 Unknown History release 24 hr hydroxyzine HCl 25 mg tablet 25 mg PO BID PRN anxiety #60 tabs 01/19/24 Unknown Rx venlafaxine 75 mg capsule,extended 75 mg PO QDAY 01/19/24 Unknown History release 24 hr doxepin 10 mg capsule 10 mg PO QHS #30 caps 01/25/24 Unknown Rx lactulose 10 gram/15 mL oral 15 ml PO BID PRN constipation 01/26/24 Unknown History solution nitrofurantoin 100 mg PO DAILY PRN after sex 01/26/24 Unknown History monohydrate/macrocrystals 100 mg capsule (Macrobid) potassium chloride 20 mEq 20 meq PO TID 01/26/24 Unknown History tablet,extended release acetaminophen 500 mg tablet 1,000 mg (2 x 500 mg) PO Q8 #0 tabs 01/30/24 Unknown Rx insulin aspart U-100 100 unit/mL 10 unit (0.1 mL) subcut TID 30 01/30/24 Unknown Rx (3 mL) subcutaneous pen (Novo days #0 mL FlexPen U-100 Insulin aspart) insulin glargine U-300 conc 300 25 unit (0.0833 mL) subcut DAILY 01/30/24 Unknown Rx unit/mL (3 mL) subcutaneous pen 30 days #0 mL (Toujeo Max U-300 SoloStar) lidocaine HCl 2 % mucosal solution 10 ml PO Q4H PRN PRN MOUTH 01/30/24 Unknown Rx (Lidocaine Viscous) IRRITATION 1 week #600 mL nicotine 14 mg/24 hr daily 14 mg transdermal DAILY 28 days 01/30/24 Unknown Rx transdermal patch #28 ea nystatin 100,000 unit/mL oral 500,000 unit (5 mL) PO 4X/DAY 7 01/30/24 Unknown Rx suspension days #140 mL sennosides 8.6 mg-docusate sodium 2 tab PO BID PRN Acne #0 tabs 01/30/24 Unknown Rx 50 mg tablet (Stool Softener-Stimulant Laxative) simethicone 80 mg chewable tablet 160 mg (2 x 80 mg) PO TIDPC #0 tabs 01/30/24 Unknown Rx Allergy/AdvReac Type Severity Reaction Status Date / Time gabapentin (From Neurontin) Allergy Rash Verified 02/03/24 17:27 Penicillins Allergy Rash Verified 02/03/24 17:27 Sulfa (Sulfonamide Allergy Rash Verified 02/03/24 17:27 Antibiotics) Family History Mother Hypertension Hyperlipidemia Father Heart disease Surgical History H/O: History of appendectomy History of embolic filter insertion History of hysterectomy Hx of cholecystectomy Social History household members: none Smoking Status: Current every day smoker tobacco type: e-cigarettes alcohol intake: former substance use type: marijuana ROS <AMIE Clark - Last Filed: 02/03/24 22:26> ROS ED ROS Narrative Constitutional: Negative for weight loss, weakness. Positive fever and chills Eyes: Negative for vision loss, vision change, double vision ENT: Negative for any sore throat, ear pain, congestion Cardiovascular: Negative for any chest pain, tightness, palpitations Respiratory: Negative for any cough, sputum production, hemoptysis, dyspnea, dyspnea on exertion, orthopnea Gastrointestinal: Negative for any nausea, vomiting, diarrhea, constipation, blood in stool, blood in vomit. Positive for abdominal pain : Negative for any urinary frequency, dysuria, retention, blood in urine Muscle skeletal: Negative for any neck pain, back pain Neurological: Negative for any headache, syncope, dizziness Skin: Negative for any rashes, itching, abrasions, lacerations Psychiatric: Negative for any depression, anxiety, stress, suicidal ideation, homicidal ideation Hematologic: Negative for any excessive bruising, easy bleeding EXAM <AMIE Clark - Last Filed: 02/03/24 22:26> Physical Exam Narrative Exam Narrative: Vital signs reviewed. HEET: Head normocephalic atraumatic, TMs clear bilaterally. Posterior pharynx is clear, moist mucous membranes. Nares clear bilaterally. Neck: Supple with no lymphadenopathy or tenderness. No signs of meningismus. Cardiac: Regular rate and rhythm no murmurs gallops or rubs, equal peripheral pulses bilaterally. Respiratory: Lungs clear to auscultation bilaterally. No chest tenderness. Abdomen: Soft, nondistended. No abdominal bruit or pulsatile masses. No hepatosplenomegaly. Positive pain to the right upper, right mid abdomen Extremities: No peripheral edema, no signs of gross trauma or deformity. Active full range of motion of all extremities. Neuro: Cranial nerves II through XII intact, no focal neurological deficits. Skin: Clean dry and intact with no rash, purpura, petechiae, vesicles or pustules. Backs/flank: No CVA tenderness, no midline spinal tenderness, no deformity. Psych: Normal mood and affect. No SI, HI or acute psychosis. Const Vital Signs: 02/03/24 17:26 02/03/24 19:26 02/03/24 21:00 Temperature 97.6 F L Temperature Source Temporal Pulse Rate 119 H 95 90 Respiratory Rate 18 17 17 Blood Pressure 170/97 H 132/73 H 146/96 H Blood Pressure Mean 121 92 112 Pulse Ox 98 98 93 Oxygen Delivery Method Room Air Room Air Room Air 02/03/24 23:00 Temperature Temperature Source Pulse Rate 78 Respiratory Rate 16 Blood Pressure 123/75 H Blood Pressure Mean 91 Pulse Ox 98 Oxygen Delivery Method Room Air Positive well nourished and well developed General Appearance ED: well developed <Dr. Ranjan Parra MD - Last Filed: 02/03/24 23:53> Physical Exam Const Vital Signs: 02/03/24 17:26 02/03/24 19:26 02/03/24 21:00 Temperature 97.6 F L Temperature Source Temporal Pulse Rate 119 H 95 90 Respiratory Rate 18 17 17 Blood Pressure 170/97 H 132/73 H 146/96 H Blood Pressure Mean 121 92 112 Pulse Ox 98 98 93 Oxygen Delivery Method Room Air Room Air Room Air 02/03/24 23:00 Temperature Temperature Source Pulse Rate 78 Respiratory Rate 16 Blood Pressure 123/75 H Blood Pressure Mean 91 Pulse Ox 98 Oxygen Delivery Method Room Air [facility] <AMIE Clark - Last Filed: 02/03/24 22:26> [facility] Lab Data Labs: Laboratory Results - last 24 hr 02/03/24 18:34 WBC 13.4 H RBC 4.12 L Hgb 11.8 L Hct 38.0 MCV 92.2 MCH 28.6 MCHC 31.1 L RDW Std Deviation 46.3 H RDW Coeff of Megan 13.7 Plt Count 463 H MPV 8.2 Immature Gran % (Auto) 2.500 H Neut % (Auto) 75.4 H Lymph % (Auto) 11.9 L Irwin % (Auto) 8.6 Eos % (Auto) 0.9 Baso % (Auto) 0.7 Absolute Neuts (auto) 10.1 H Absolute Lymphs (auto) 1.59 Nucleated RBC % 0 Sodium 136 Potassium 3.7 Chloride 103 Carbon Dioxide 25.0 Anion Gap 8 BUN 12 Creatinine 1.04 H Estim Creat Clear Calc 75.01 Est GFR (MDRD) Af Amer 72 Est GFR (MDRD) Non-Af 60 BUN/Creatinine Ratio 11.5 Glucose 202 H Calcium 9.2 Total Bilirubin 0.30 AST 22 ALT 40 Alkaline Phosphatase 144 H Total Protein 7.9 Albumin 2.9 L Globulin 5.0 H Albumin/Globulin Ratio 0.6 L Lipase 13 Radiography Diagnostic Testing: Clinical Impression(s) from Imaging Studies Abdomen/Pelvis CT 02/03/24 19:05 IMPRESSION: 1. Interval placement of biliary stent. No biliary ductal dilatation. 2. Continued pancreatitis with increasing fluid extending inferiorly into the mesentery including a 4 cm phlegmon/developing abscess anteriorly in the mesentery. Electronically Signed: Edwin Bolaños MD at 19:44 EDT , ADDENDUM: 02/03/241954 IMPRESSION: 1. Interval placement of biliary stent. No biliary ductal dilatation. 2. Continued pancreatitis with increasing fluid extending inferiorly into the mesentery including a 4 cm phlegmon/developing abscess anteriorly in the mesentery. N.B. : The above Results were Read Back by Edwin Bolaños MD to Jg Medley NP, and understanding confirmed on 02/03/2024 19:48:20 (ET). Electronically Signed: Edwin Bolaños MD at 19:44 EDT , Treatment and Re-Evaluation :: Differential diagnosis includes however is not limited to: Stent blockage, choledocholithiasis, acute on chronic pancreatitis, acute on chronic abdominal pain, abscess formation I did look at the patient's notes from previous admission as well as Dr. Mello's note, patient did receive an ERCP, patient did have choledocholithiasis. After the procedure, the patient felt much better. Patient appears to be in slight discomfort secondary to pain to her abdomen, patient's vital signs are stable, patient appears nontoxic. Patient had no fevers here. Presenting to the emergency department for acute on chronic abdominal pain. Patient receive laboratory values, including IV fluids, Zofran, Dilaudid. Based on these laboratory values, I will reach out to Dr. Mello. Patient CBC shows a leukocytosis with a white blood count of 13.4, slight anemia with hemoglobin 11.8. Patient's creatinine was slightly elevated 1.04. Baseline is between 6 and 1. Blood glucose 202. Patient's alkaline phosphatase 144, lipase was negative at 13. Secondary leukocytosis, recent surgery, patient received a CT scan of the abdomen pelvis with IV contrast. I will reach out to Dr. Mello. Repeat vital signs are stable, patient is improving. CT scan of the abdomen pelvis shows interval placement of a biliary stent, no biliary ductal dilatation. Continued pancreatitis with increasing fluid extending inferiorly into the mesentery including a 4 cm phlegmon/developing abscess anteriorly in the mesentery. I did speak with Dr. Mello, he believes that the patient might need to be admitted to the hospital at [place] this is where she had this drained last time. Spoke with surgery, patient will need to be transferred to [facility], this is where the patient had a pseudocyst drain in October 2023. Patient will be redosed with IV Dilaudid, Zofran as well as started on cefepime 2 g IV. I spoke with , I spoke with Dr. Torre, he will accept the patient however he recommended admission to the hospital until they get a bed and will accept the patient at that time. Patient stable for admission. <Dr. Ranjan Parra MD - Last Filed: 02/03/24 23:53> MDM MDM Narrative Medical decision making narrative: I have personally performed a face to face assessment of the patient and have reviewed the JAYSHREE Note. I performed a substantive portion of the visit including all aspects of the following. My denise findings include: History is recent ERCP, now increased pain feels like pancreas, as well as fever up to 101 Exam is tender epigastrium. Not jaundiced. No distress. Medical Decison Making CT, labs, analgesics, reevaluate. I reviewed the CT images and the report, which I agree with. There is an abnormal area in the pancreas that is new, 4 cm phlegmon according to radiology. Discussed with , they will accept the patient in transfer, recommend usual pancreatitis treatment for acute pancreatitis now and admit locally until they get a bed. Discussed with GI and hospitalist. Other additions or changes: [None] Lab Data Labs: Laboratory Results - last 24 hr 02/03/24 18:34 WBC 13.4 H RBC 4.12 L Hgb 11.8 L Hct 38.0 MCV 92.2 MCH 28.6 MCHC 31.1 L RDW Std Deviation 46.3 H RDW Coeff of Megan 13.7 Plt Count 463 H MPV 8.2 Immature Gran % (Auto) 2.500 H Neut % (Auto) 75.4 H Lymph % (Auto) 11.9 L Irwin % (Auto) 8.6 Eos % (Auto) 0.9 Baso % (Auto) 0.7 Absolute Neuts (auto) 10.1 H Absolute Lymphs (auto) 1.59 Nucleated RBC % 0 Sodium 136 Potassium 3.7 Chloride 103 Carbon Dioxide 25.0 Anion Gap 8 BUN 12 Creatinine 1.04 H Estim Creat Clear Calc 75.01 Est GFR (MDRD) Af Amer 72 Est GFR (MDRD) Non-Af 60 BUN/Creatinine Ratio 11.5 Glucose 202 H Calcium 9.2 Total Bilirubin 0.30 AST 22 ALT 40 Alkaline Phosphatase 144 H Total Protein 7.9 Albumin 2.9 L Globulin 5.0 H Albumin/Globulin Ratio 0.6 L Lipase 13 Radiography Diagnostic Testing: Clinical Impression(s) from Imaging Studies Abdomen/Pelvis CT 02/03/24 19:05 IMPRESSION: 1. Interval placement of biliary stent. No biliary ductal dilatation. 2. Continued pancreatitis with increasing fluid extending inferiorly into the mesentery including a 4 cm phlegmon/developing abscess anteriorly in the mesentery. Electronically Signed: Edwin Bolaños MD at 19:44 EDT , ADDENDUM: 02/03/241954 IMPRESSION: 1. Interval placement of biliary stent. No biliary ductal dilatation. 2. Continued pancreatitis with increasing fluid extending inferiorly into the mesentery including a 4 cm phlegmon/developing abscess anteriorly in the mesentery. N.B. : The above Results were Read Back by Edwin Bolaños MD to Jg Medley NP, and understanding confirmed on 02/03/2024 19:48:20 (ET). Electronically Signed: Edwin Bolaoñs MD at 19:44 EDT , Management Discussion w/another healthcare provider: Hospitalist and Financial Aids Officer Discharge Plan Triage Chief Complaint: Abd Pain ED Midlevel Provider: Jg Medley ED Provider: Ranjan Parra Dx/Rx/DC Orders Clinical Impression: Phlegmon of pancreas, Chronic pancreatitis Prescriptions: No Action omeprazole 40 mg capsule,delayed release(DR/EC) 40 mg PO BID glipizide 10 mg tablet extended release 24hr 10 mg PO QDAY enoxaparin 100 mg/mL syringe 100 mg subcut Q12H venlafaxine 75 mg capsule,extended release 24hr 75 mg PO QDAY hydroxyzine HCl 25 mg tablet 25 mg PO BID PRN (Reason: anxiety) Qty: 60 1RF furosemide 40 MG tablet 40 mg PO DAILY valacyclovir [Valtrex] 500 MG tablet 500 mg PO DAILY Linzess 290 mcg capsule 290 mcg PO DAILY methenamine hippurate [Hiprex] 1 gram Tablet 1 g PO QHS venlafaxine [Effexor XR] 150 mg Capsule,Extended Release 24hr 150 mg PO QHS cholecalciferol (vitamin D3) 1,250 mcg (50,000 unit) capsule 50,000 unit PO FR aripiprazole 10 mg tablet 10 mg PO DAILY benztropine 0.5 mg tablet 0.5 mg PO BID divalproex 250 mg tablet,delayed release (DR/EC) 250 mg PO Q12H clonidine HCl 0.2 mg tablet 0.2 mg PO QHS metoprolol succinate 25 mg tablet extended release 24 hr 25 mg PO DAILY promethazine 25 mg tablet 25 mg PO TID PRN (Reason: nausea and vomiting) 7 Days Qty: 21 0RF fenofibrate nanocrystallized 145 mg tablet 145 mg PO QHS melatonin 10 mg tablet 5 mg PO QHS PRN (Reason: sleep) (DME) pen needle, diabetic 31 gauge x 1/3 needle See Rx Instructions .Route Qty: 100 0RF Rx Instructions: As directed potassium chloride 20 mEq tablet extended release 20 meq PO TID nitrofurantoin monohyd/m-cryst [Macrobid] 100 mg capsule 100 mg PO DAILY PRN (Reason: after sex) lactulose 10 gram/15 mL solution 15 ml PO BID PRN (Reason: constipation) simethicone 80 mg Tablet,Chewable 160 mg PO TIDPC Qty: 0 0RF Rx Instructions: Wkld-osd-ikwziva sennosides-docusate sodium [Stool Softener-Stimulant Laxat] 8.6-50 mg Tablet 2 tab PO BID PRN (Reason: Acne) Qty: 0 0RF nystatin 100,000 unit/mL Suspension 500,000 unit PO 4X/DAY 7 Days Qty: 140 0RF nicotine 14 mg/24 hr Patch 24 Hour 14 mg transdermal DAILY 28 Days Qty: 28 0RF acetaminophen 500 mg Tablet 1,000 mg PO Q8 Qty: 0 0RF lidocaine HCl [Lidocaine Viscous] 2 % Solution 10 ml PO Q4H PRN PRN (Reason: MOUTH IRRITATION) 7 Days Qty: 600 0RF insulin aspart U-100 [Novolog FlexPen U-100 Insulin] 100 unit/mL (3 mL) insulin pen 10 unit subcut TID 30 Days Qty: 0 0RF insulin glargine U-300 conc [Toujeo Max U-300 SoloStar] 300 unit/mL (3 mL) insulin pen 25 unit subcut DAILY 30 Days Qty: 0 0RF doxepin 10 mg capsule 10 mg PO QHS Qty: 30 1RF Primary Care Provider: Rin Rivera NP Referrals: Rin Rivera NP, [employer]PER[employer]OR[employer] [Primary Care Provider] - Print Language: Setswana Disposition Disposition: Acute Care [facility]
[2024-02-03] MEDS: Ondansetron 4 MG/2 ML Vial IV ×2 (18:12→20:40)
[2024-02-03] MEDS: 0.9% Normal Saline (1000mL) 1,000 ML 999 ML IV (18:12)
[2024-02-03] MEDS: HYDROmorphone 1 MG/ML Syringe IV ×2 (18:13→20:41)
[2024-02-03 18:40] LABS: Absolute Lymphocyte Count 1.59 X10^3/uL (0.83-4.51); Absolute Neutrophil Count 10.1 X10^3/uL (2.0-7.7); Basophil% 0.7 % (0-1); Eosinophil# 0.12 X10^3/uL; Eosinophils% 0.9 % (0-5); Hemoglobin 11.8 g/dL (12.0-15.0); Lymphocyte # 1.59 X10^3/ul (0.83-4.51); Lymphocyte % 11.9 % (19-41); Mean Corp Hgb Conc 31.1 g/dL (32-36); Mean Corpuscular Hgb 28.6 pg (27.0-32.0); Mean Corpuscular Volume 92.2 fL (81-99); Mean Platelet Vol. 8.2 fl (6.2-12.0); Monocyte# 1.15 X10^3/uL; Monocyte% 8.6 % (0-10); NRBC Flagged by Analyzer 0 % (0-5); Neutrophil # 10.06 X10^3/uL (2.7-7.7); Neutrophil % 75.4 % (47-70); Platelet Count 463 K/mm3 (150-450); RBC Distribution Width CV 13.7 % (11.6-14.6); RBC Distribution Width SD 46.3 fl (35.1-43.9); Red Blood Count 4.12 M/mm3 (4.2-5.4); White Blood Count 13.4 K/mm3 (4.4-11.0)
[2024-02-03 18:57] LABS: ALB/GLOB Ratio 0.6 RATIO (0.9-2.4); AST(SGOT) 22 U/L (15-37); Alanine Aminotransfer ALT/SGPT 40 U/L (13-56); Albumin, Serum 2.9 g/dL (3.2-5.0); Alkaline Phosphatase 144 U/L (45-117); Anion Gap 8 (5-15); BUN 12 mg/dL (7-18); BUN/Creat Ratio 11.5 RATIO (10-20); Calcium,Total 9.2 mg/dL (8.5-10.1); Chloride 103 mmol/L (98-107); Creatinine, Serum 1.04 mg/dL (0.55-1.02); EST Glomerular Filtration Rate 60 mL/min (>60); Est Glom Filt Rate - Afr Amer 72 mL/min (>60); Estimated Creatinine Clearance 75.01 ml/min; Glucose 202 mg/dL (74-106); Lipase 13 U/L (13-75); Potassium 3.7 mmol/L (3.5-5.1); Protein, Total 7.9 g/dL (6.4-8.2); Sodium Level 136 mmol/L (136-145)
--- NOTE | 2024-02-03 19:05 | CT_ITS ---
We are attempting to reach an attending provider to discuss findings. An addendum with communication details will be sent when the communication is complete. STUDY: CT ABDOMEN AND PELVIS WITH CONTRAST REASON FOR EXAM: Female, 48 years old. abdominal pain RADIATION DOSAGE (If Supplied By Facility): CTDIvol = ( 16.80 ) mGy, DLP = ( 1277.03 ) mGycm TECHNIQUE: Transaxial images were obtained from the dome of the diaphragm to the symphysis pubis without oral contrast. IV 100mL Isovue-300 was administered. Sagittal and coronal images were reconstructed. Individualized dose optimization techniques were used for this CT. COMPARISON: 01/24/2024 FINDINGS: The visualized lung bases are unremarkable. The visualized portions of the heart are within normal limits. Normal liver. There are surgical clips in the gallbladder fossa consistent with a prior cholecystectomy. Interval placement of biliary stent. Normal spleen. There is diffuse enlargement of the pancreas with walter-pancreatic edema suggesting acute pancreatitis. Increase in the fluid extending inferiorly from the head of the pancreas into the mesentery from pancreatitis. Some of the fluid in the mesentery anteriorly measures 4 cm and is oval in shape worrisome for phlegmon. No well-defined enhancing wall. Normal enhancement of the pancreas without evidence of necrotizing pancreatitis. Normal bilateral adrenal glands. Normal right kidney. Normal left kidney. Normal visualized stomach. Normal small intestine. Normal colon. There is non-visualization of the appendix. Normal abdominal aorta. There is an IVC filter in place. Normal retroperitoneum. Normal urinary bladder. Normal abdominal wall. Normal osseous structures. CT/Abdomen/Pelvis W IV Cont ONLY IMPRESSION: 1. Interval placement of biliary stent. No biliary ductal dilatation. 2. Continued pancreatitis with increasing fluid extending inferiorly into the mesentery including a 4 cm phlegmon/developing abscess anteriorly in the mesentery. Electronically Signed: Edwin Bolaños MD at 19:44 EDT ,
[2024-02-03 19:26] VITALS: BP 132/73; PULSE 95; RESP 17; O2SAT 98
[2024-02-03] MEDS: Cefepime HCl 2 GM in 0.9% Normal Saline (100mL MB+) 100 ML IV (20:52)
[2024-02-03 21:00] VITALS: BP 146/96; PULSE 90; RESP 17; O2SAT 93
[2024-02-03 23:00] VITALS: BP 123/75; PULSE 78; RESP 16; O2SAT 98
[2024-02-03 23:53] VITALS: BP 129/78; PULSE 85; RESP 17; TEMP 36.4; O2SAT 97
[2024-02-04] VITALS (7 sets, daily range): BP systolic 116–163; BP diastolic 74–96; PULSE 91–94; RESP 16–18; TEMP 36.3–37.8; O2SAT 91–97; BMI 41.4
--- NOTE | 2024-02-04 00:17 | HP.PCM.HOS_ITS ---
[facility] - General General Date of Admission: 02/04/24 Date of Service: 02/04/24 Chief Complaint: abdominal pain. [facility] Narrative DOROTHEA RUTLEDGE, is a 48 F who presents with abdominal pain. Patient was admitted from the - with pancreatitis. She underwent an ERCP on the . Patient was noted to have choledocholithiasis with 1 stone that was removed. She did have dilation of the common bile duct. 110 [place] by 5 cm temporary stent was placed 5 cm into the common bile duct. Patient did have biliary drainage noted. Patient states that she did have some increased abdominal pain before she was discharged but overall is feeling better. But since going home she has been having abdominal pain, chills, nausea and vomiting. With these ongoing symptoms fact that was not getting better she presented to the emergency room. CAT scan performed showed interval placement of biliary stent. No biliary ductal dilation. Continued pancreatitis with increasing fluid extending inferiorly into the mesentery including a 4 cm phlegmon/developing abscess anteriorly in the mesentery. The ED reached out to Dr. Mello, gastroenterology, who advised transfer. Patient has previously had biliary stents placed over here at [facility] so they reached out to [facility]. Patient was excepted there but they did not have a bed readily available so they recommended admission and management here before in bed. Patient did receive cefepime in the emergency room. [facility] Medical History Smoker Acute on chronic pancreatitis Pancreatitis Chronic constipation Vitamin D deficiency Depression GERD (gastroesophageal reflux disease) DVT (deep venous thrombosis) Stroke/cerebrovascular accident Epilepsy Substance abuse History of CVA (cerebrovascular accident) Seizure disorder Presence of IVC filter Anxiety History of pulmonary embolus (PE) Factor V Leiden mutation Hyperlipidemia Hypertension Home Medications ?Medication ?Instructions ?Recorded ?Last Taken ?Type furosemide 40 mg tablet 40 mg PO DAILY water pill 09/10/16 08/17/23 History valacyclovir 500 mg tablet 500 mg PO DAILY herpes 10/25/18 08/17/23 History (Valtrex) linaclotide 290 mcg capsule 290 mcg PO DAILY bowels 05/28/21 08/17/23 History (Linzess) methenamine hippurate 1 gram 1 g PO QHS bladder infections 12/03/21 08/16/23 History tablet (Hiprex) venlafaxine 150 mg 150 mg PO QHS mood 12/03/21 08/17/23 History capsule,extended release 24 hr (Effexor XR) cholecalciferol (vitamin D3) 1,250 50,000 unit PO FR supplement 02/05/23 08/12/23 History mcg (50,000 unit) capsule omeprazole 40 mg capsule,delayed 40 mg PO BID 02/23/23 08/17/23 History release fenofibrate nanocrystallized 145 145 mg PO QHS 05/07/23 08/16/23 History mg tablet aripiprazole 10 mg tablet 10 mg PO DAILY MOOD 06/23/23 08/17/23 History benztropine 0.5 mg tablet 0.5 mg PO BID 06/23/23 07/21/23 History divalproex 250 mg tablet,delayed 250 mg PO Q12H 06/23/23 08/17/23 History release clonidine HCl 0.2 mg tablet 0.2 mg PO QHS 07/22/23 08/17/23 History metoprolol succinate 25 mg 25 mg PO DAILY 07/22/23 08/17/23 History tablet,extended release 24 hr melatonin 10 mg tablet 5 mg PO QHS PRN sleep 08/17/23 Unknown History pen needle, diabetic 31 gauge x #100 ea 08/18/23 Unknown Rx 1/3 promethazine 25 mg tablet 25 mg PO TID PRN nausea and 10/23/23 Unknown Rx vomiting 7 days #21 tabs enoxaparin 100 mg/mL subcutaneous 100 mg subcut Q12H 01/19/24 Unknown History syringe glipizide 10 mg tablet, extended 10 mg PO QDAY 01/19/24 Unknown History release 24 hr hydroxyzine HCl 25 mg tablet 25 mg PO BID PRN anxiety #60 tabs 01/19/24 Unknown Rx venlafaxine 75 mg capsule,extended 75 mg PO QDAY 01/19/24 Unknown History release 24 hr doxepin 10 mg capsule 10 mg PO QHS #30 caps 01/25/24 Unknown Rx lactulose 10 gram/15 mL oral 15 ml PO BID PRN constipation 01/26/24 Unknown History solution nitrofurantoin 100 mg PO DAILY PRN after sex 01/26/24 Unknown History monohydrate/macrocrystals 100 mg capsule (Macrobid) potassium chloride 20 mEq 20 meq PO TID 01/26/24 Unknown History tablet,extended release acetaminophen 500 mg tablet 1,000 mg (2 x 500 mg) PO Q8 #0 tabs 01/30/24 Unknown Rx insulin aspart U-100 100 unit/mL 10 unit (0.1 mL) subcut TID 30 01/30/24 Unknown Rx (3 mL) subcutaneous pen (Novolog days #0 mL FlexPen U-100 Insulin aspart) insulin glargine U-300 conc 300 25 unit (0.0833 mL) subcut DAILY 01/30/24 Unknown Rx unit/mL (3 mL) subcutaneous pen 30 days #0 mL (Toujeo Max U-300 SoloStar) lidocaine HCl 2 % mucosal solution 10 ml PO Q4H PRN PRN MOUTH 01/30/24 Unknown Rx (Lidocaine Viscous) IRRITATION 1 week #600 mL nicotine 14 mg/24 hr daily 14 mg transdermal DAILY 28 days 01/30/24 Unknown Rx transdermal patch #28 ea nystatin 100,000 unit/mL oral 500,000 unit (5 mL) PO 4X/DAY 7 01/30/24 Unknown Rx suspension days #140 mL sennosides 8.6 mg-docusate sodium 2 tab PO BID PRN Acne #0 tabs 01/30/24 Unknown Rx 50 mg tablet (Stool Softener-Stimulant Laxative) simethicone 80 mg chewable tablet 160 mg (2 x 80 mg) PO TIDPC #0 tabs 01/30/24 Unknown Rx Allergy/AdvReac Type Severity Reaction Status Date / Time gabapentin (From Neurontin) Allergy Rash Verified 02/03/24 17:27 Penicillins Allergy Rash Verified 02/03/24 17:27 Sulfa (Sulfonamide Allergy Rash Verified 02/03/24 17:27 Antibiotics) Family History Mother Hypertension Hyperlipidemia Father Heart disease Surgical History H/O: History of embolic filter insertion History of appendectomy Hx of cholecystectomy History of hysterectomy Social History household members: none Smoking Status: Current every day smoker tobacco type: e-cigarettes alcohol intake: former substance use type: marijuana ROS ROS Narrative All review of systems were negative except as mentioned above in the history of present illness and the other review of systems. Vital Signs Vital Signs Vital Signs: 02/03/24 17:26 02/03/24 19:26 02/03/24 21:00 Temperature 36.4 C L Temperature Source Temporal Pulse Rate 119 H 95 90 Respiratory Rate 18 17 17 Blood Pressure 170/97 H 132/73 H 146/96 H Blood Pressure Mean 121 92 112 Pulse Ox 98 98 93 Oxygen Delivery Method Room Air Room Air Room Air 02/03/24 23:00 02/03/24 23:53 Temperature 36.4 C L Temperature Source Pulse Rate 78 85 Respiratory Rate 16 17 Blood Pressure 123/75 H 129/78 H Blood Pressure Mean 91 95 Pulse Ox 98 97 Oxygen Delivery Method Room Air Weight Weight: 106.396 kg Body Mass Index (BMI) 42.9 Physical Exam Const alert and no apparent distress Constitutional Narrative: Lying in bed on her left side. Afebrile. Nontoxic. General Appearance: cooperative HEENT normocephalic and head/scalp atraumatic Eyes Eyes Narrative: No icterus Neck no lymphadenopathy Neck Narrative: No thyromegaly Resp normal respiratory effort, no retractions, no use of accessory muscles and clear to auscultation bilaterally Cardio regular rate, regular rhythm, S1 normal heart sound and S2 normal heart sound GI GI Narrative: Epigastric abdominal pain. No rebound. Extremity normal to inspection Neuro moves all extremities Sensorium / Orientation: awake and alert Psych affect normal Results Lab / Micro Data Attestation: I reviewed the patient's lab results. 02/03/24 18:34 02/03/24 18:34 Labs: Laboratory Results - last 24 hr 02/03/24 18:34: WBC 13.4 H, RBC 4.12 L, Hgb 11.8 L, Hct 38.0, MCV 92.2, MCH 28.6, MCHC 31.1 L, RDW Std Deviation 46.3 H, RDW Coeff of Megan 13.7, Plt Count 463 H, MPV 8.2, Immature Gran % (Auto) 2.500 H, Neut % (Auto) 75.4 H, Lymph % (Auto) 11.9 L, [place] % (Auto) 8.6, Eos % (Auto) 0.9, Baso % (Auto) 0.7, Absolute Neuts (auto) 10.1 H, Absolute Lymphs (auto) 1.59, Nucleated RBC % 0, Sodium 136, Potassium 3.7, Chloride 103, Carbon Dioxide 25.0, Anion Gap 8, BUN 12, C reatinine 1.04 H, Estim Creat Clear Calc 75.01, Est GFR (MDRD) Af Amer 72, Est GFR (MDRD) Non-Af 60, BUN/Creatinine Ratio 11.5, Glucose 202 H, Calcium 9.2, Total Bilirubin 0.30, AST 22, ALT 40, Alkaline Phosphatase 144 H, Total Protein 7.9, Albumin 2.9 L, Globulin 5.0 H, Albumin/Globulin Ratio 0.6 L, Lipase 13 Imaging Radiology Impression Abdomen/Pelvis CT 02/03/24 19:05 IMPRESSION: 1. Interval placement of biliary stent. No biliary ductal dilatation. 2. Continued pancreatitis with increasing fluid extending inferiorly into the mesentery including a 4 cm phlegmon/developing abscess anteriorly in the mesentery. Electronically Signed: Edwin Bolaños MD at 19:44 EDT Reading Location ID and State: [id number] / Payment plugin Tel , Service support , ADDENDUM: 02/03/241954 IMPRESSION: 1. Interval placement of biliary stent. No biliary ductal dilatation. 2. Continued pancreatitis with increasing fluid extending inferiorly into the mesentery including a 4 cm phlegmon/developing abscess anteriorly in the mesentery. N.B. : The above Results were Read Back by Edwin Bolaños MD to Jg Medley NP, and understanding confirmed on 02/03/2024 19:48:20 (ET). Electronically Signed: Edwin Bolaños MD at 19:44 EDT , Assessment & Plan Assessment/Plan (1) Phlegmon of pancreas: PLAN: Plan Acute on chronic pancreatitis * CT imaging shows ongoing pancreatitis 4 cm phlegmon/developing abscess on CAT scan report. Other possibilities could be pseudocyst. Unclear if this is the development of her ongoing pancreatitis or if related with her recent ERCP with pancreatic stenting. * Plan: IV fluids, clear liquid diet, GI consult, continue antibiotics with cefepime. Chronic protal vein thrombosis * Patient has a history of factor V Leiden deficiency history of VTE. * Plan: Continue with weight-based dosing of enoxaparin. Diabetes mellitus type 2: * Insulin-dependent * Previous A1c 7.1. Continue with her glargine, prandial insulin. Sliding scale insulin. Chronic conditions: * History of alcohol abuse (quit 2013); with chronic pancreatitis. Alcohol level negative * Polysubstance abuse history: Urine drug screen on showed opiates and cannabinoids. I do not feel there is any need to recheck at this time. * Obesity Class III: complicates management. Long-term weight loss advised. * Essential hypertension: stable. -Continue clonidine, metoprolol succinate * Hyperlipidemia: hold statin. * Chronic CHF - unclear type. Compensated. No need for echocardiogram at this time. * History of CVA: unclear type. Stable. * Seizure disorder; on divalproex - Valproic acid level previously low. No change to therapy at this time. * History of herpes: unknown type. Continue valganciclovir. * GERD - Continue PPI IV. * Depression with anxiety - continue priro aripiprazole, doxepin * History of UTIs: Hold nitrofurantoin and methenamine while on cefepime. DVT prophylaxis -not indicated as patient is already anticoagulated. Disposition: Awaiting on bed availability at [facility]. No timeframe yet on how soon that would be. Charges/Coding Visit Charges Inpatient E&M: 24230 Init Hosp L3
[2024-02-04] MEDS: 0.9% Normal Saline (1000mL) 1,000 ML 150 ML IV ×3 (01:56→13:49)
[2024-02-04] MEDS: HYDROmorphone Inj 0.2 MG/ML SYRINGE IV ×2 (01:56→05:12)
[2024-02-04] MEDS: oxyCODONE 5 MG Tablet 10 MG PO ×3 (03:10→12:47)
[2024-02-04] MEDS: Cefepime HCl 1 GM in 0.9% Normal Saline (50mL MB+) 50 ML IV ×2 (05:11→13:49)
[2024-02-04] MEDS: Enoxaparin 100 MG/ML Syringe SC (05:11)
[2024-02-04] MEDS: Acetaminophen 500 MG Tablet 1000 MG PO ×2 (05:11→13:49)
[2024-02-04] MEDS: Potassium Chloride Oral Tablet 20 MEQ PO ×2 (05:11→13:50)
[2024-02-04] MEDS: 0.9% Saline Lock 10 ML Syringe IV ×4 (05:12→13:56)
[2024-02-04 07:16] LABS: Absolute Lymphocyte Count 1.84 X10^3/uL (0.83-4.51); Absolute Neutrophil Count 9.4 X10^3/uL (2.0-7.7); Basophil# 0.07 X10^3/uL; Basophil% 0.5 % (0-1); Eosinophil# 0.21 X10^3/uL; Eosinophils% 1.6 % (0-5); Hematocrit 34.5 % (37-47); Hemoglobin 10.4 g/dL (12.0-15.0); Lymphocyte # 1.84 X10^3/ul (0.83-4.51); Lymphocyte % 14.1 % (19-41); Mean Corp Hgb Conc 30.1 g/dL (32-36); Mean Corpuscular Hgb 27.7 pg (27.0-32.0); Mean Platelet Vol. 8.3 fl (6.2-12.0); Monocyte# 1.25 X10^3/uL; Monocyte% 9.6 % (0-10); NRBC Flagged by Analyzer 0.5 % (0-5); Neutrophil # 9.35 X10^3/uL (2.7-7.7); Neutrophil % 71.9 % (47-70); Platelet Count 397 K/mm3 (150-450); RBC Distribution Width CV 13.9 % (11.6-14.6); RBC Distribution Width SD 47.1 fl (35.1-43.9); Red Blood Count 3.75 M/mm3 (4.2-5.4)
[2024-02-04] MEDS: SimETHICONE 80 MG Chewable Tablet 160 MG PO ×2 (07:53→12:47)
[2024-02-04] MEDS: Ondansetron 4 MG/2 ML Vial IV (07:53)
[2024-02-04 08:14] LABS: ALB/GLOB Ratio 0.5 RATIO (0.9-2.4); AST(SGOT) 19 U/L (15-37); Alanine Aminotransfer ALT/SGPT 34 U/L (13-56); Albumin, Serum 2.5 g/dL (3.2-5.0); Alkaline Phosphatase 132 U/L (45-117); Anion Gap 8 (5-15); BUN 9 mg/dL (7-18); BUN/Creat Ratio 10.9 RATIO (10-20); Calcium,Total 8.3 mg/dL (8.5-10.1); Chloride 102 mmol/L (98-107); Creatinine, Serum 0.82 mg/dL (0.55-1.02); EST Glomerular Filtration Rate 78 mL/min (>60); Est Glom Filt Rate - Afr Amer 95 mL/min (>60); Estimated Creatinine Clearance 96.84 ml/min; Globulin 4.6 g/dL (2.2-4.2); Glucose 102 mg/dL (74-106); Potassium 3.6 mmol/L (3.5-5.1); Protein, Total 7.1 g/dL (6.4-8.2); Sodium Level 136 mmol/L (136-145)
[2024-02-04 08:37] LABS: Bedside Glucose 82 mg/dL (74-106)
--- NOTE | 2024-02-04 10:05 | PN.HOSP_ITS ---
Reason for Visit Reason for Visit: Diagnoses Acute pancreatitis without necrosis or infection, unspecified (02/04/24) Objective Data Objective Data Vital Signs: Vital Signs Temp Pulse Resp BP Pulse Ox O2 Del Method 98.3 F 92 18 134/77 H 95 Room Air 02/04/24 07:50 02/04/24 07:50 02/04/24 07:50 02/04/24 07:50 02/04/24 07:50 02/04/24 07:50 Oxygen Delivery Method Room Air Weight: 234 lb 2.095 oz Body Mass Index (BMI) 41.4 Intake & Output: Intake and Output for Last 24 Hours 02/02/24 02/03/24 02/04/24 23:59 23:59 23:59 Intake Total 1100 / 1100 1367.5 / 1367.5 Balance 1100 / 1100 1367.5 / 1367.5 Lab / Micro Data 02/04/24 06:10 02/04/24 06:10 Labs: Laboratory Results - last 24 hr 02/03/24 18:34: WBC 13.4 H, RBC 4.12 L, Hgb 11.8 L, Hct 38.0, MCV 92.2, MCH 28.6, MCHC 31.1 L, RDW Std Deviation 46.3 H, RDW Coeff of Megan 13.7, Plt Count 463 H, MPV 8.2, Immature Gran % (Auto) 2.500 H, Neut % (Auto) 75.4 H, Lymph % (Auto) 11.9 L, [place] % (Auto) 8.6, Eos % (Auto) 0.9, Baso % (Auto) 0.7, Absolute Neuts (auto) 10.1 H, Absolute Lymphs (auto) 1.59, Nucleated RBC % 0, Sodium 136, Potassium 3.7, Chloride 103, Carbon Dioxide 25.0, Anion Gap 8, BUN 12, C reatinine 1.04 H, Estim Creat Clear Calc 75.01, Est GFR (MDRD) Af Amer 72, Est GFR (MDRD) Non-Af 60, BUN/Creatinine Ratio 11.5, Glucose 202 H, Calcium 9.2, Total Bilirubin 0.30, AST 22, ALT 40, Alkaline Phosphatase 144 H, Total Protein 7.9, Albumin 2.9 L, Globulin 5.0 H, Albumin/Globulin Ratio 0.6 L, Lipase 13 02/04/24 06:10: WBC 13.0 H, RBC 3.75 L, Hgb 10.4 L, Hct 34.5 L, MCV 92.0, MCH 27.7, MCHC 30.1 L, RDW Std Deviation 47.1 H, RDW Coeff of Megan 13.9, Plt Count 397, MPV 8.3, Immature Gran % (Auto) 2.300 H, Neut % (Auto) 71.9 H, Lymph % (Auto) 14.1 L, [place] % (Auto) 9.6, Eos % (Auto) 1.6, Baso % (Auto) 0.5, Absolute Neuts (auto) 9.4 H, Absolute Lymphs (auto) 1.84, Nucleated RBC % 0.5, Sodium 136, Potassium 3.6, Chloride 102, Carbon Dioxide 26.0, Anion Gap 8, BUN 9, Creatinine 0.82, Estim Creat Clear Calc 96.84, Est GFR (MDRD) Af Amer 95, Est GFR (MDRD) Non-Af 78, BUN/Creatinine Ratio 10.9, Glucose 102, Calcium 8.3 L, Total Bilirubin 0.20, AST 19, ALT 34, Alkaline Phosphatase 132 H, Total Protein 7.1, Albumin 2.5 L, Globulin 4.6 H, Albumin/Globulin Ratio 0.5 L 02/04/24 07:50: POC Glucose 82 Radiography Diagnostic Testing: Radiology Impression Abdomen/Pelvis CT 02/03/24 19:05 IMPRESSION: 1. Interval placement of biliary stent. No biliary ductal dilatation. 2. Continued pancreatitis with increasing fluid extending inferiorly into the mesentery including a 4 cm phlegmon/developing abscess anteriorly in the mesentery. Electronically Signed: Edwin Bolaños MD at 19:44 EDT , ADDENDUM: 02/03/241954 IMPRESSION: 1. Interval placement of biliary stent. No biliary ductal dilatation. 2. Continued pancreatitis with increasing fluid extending inferiorly into the mesentery including a 4 cm phlegmon/developing abscess anteriorly in the mesentery. N.B. : The above Results were Read Back by Edwin Bolaños MD to Jg Medley NP, and understanding confirmed on 02/03/2024 19:48:20 (ET). Electronically Signed: Edwin Bolaños MD at 19:44 EDT , Assessment & Plan Assessment/Plan (1) Phlegmon of pancreas: PLAN: Plan 48-year-old female with history of chronic pancreatitis was admitted with increased abdominal pain, chills, nausea and vomiting. She had interval placement of biliary stent during previous mentation from January [address] shows 4 cm phlegmon/developing abscess anteriorly in the mesentery with increasing fluid extending inferiorly into the mesentery. Acute on chronic pancreatitis * CT imaging shows ongoing pancreatitis 4 cm phlegmon/developing abscess on CAT scan report. Other possibilities could be pseudocyst. Unclear if this is the development of her ongoing pancreatitis or if related with her recent ERCP with pancreatic stenting. * Plan: IV fluids, clear liquid diet, GI consult, continue antibiotics with cefepime. Chronic protal vein thrombosis * Patient has a history of factor V Leiden deficiency history of VTE. * Plan: Continue with weight-based dosing of enoxaparin. Diabetes mellitus type 2: * Insulin-dependent * Previous A1c 7.1. Continue with her glargine, prandial insulin. Sliding scale insulin. Chronic conditions: * History of alcohol abuse (quit 2013); with chronic pancreatitis. Alcohol level negative * Polysubstance abuse history: Urine drug screen on showed opiates and cannabinoids. I do not feel there is any need to recheck at this time. * Obesity Class III: complicates management. Long-term weight loss advised. * Essential hypertension: stable. -Continue clonidine, metoprolol succinate * Hyperlipidemia: hold statin. * Chronic CHF - unclear type. Compensated. No need for echocardiogram at this time. * History of CVA: unclear type. Stable. * Seizure disorder; on divalproex - Valproic acid level previously low. No change to therapy at this time. * History of herpes: unknown type. Continue valganciclovir. * GERD - Continue PPI IV. * Depression with anxiety - continue priro aripiprazole, doxepin * History of UTIs: Hold nitrofurantoin and methenamine while on cefepime. DVT prophylaxis -not indicated as patient is already anticoagulated.
[2024-02-04] MEDS: Metoprolol(XL)Succ 25 MG Tablet PO (10:17)
[2024-02-04] MEDS: Divalproex Sodium 250 MG Tablet PO (10:17)
[2024-02-04] MEDS: ARIPiprazole 10 MG Tablet PO (10:17)
[2024-02-04] MEDS: Pantoprazole Sodium 40 MG Tablet PO (10:17)
[2024-02-04] MEDS: NYSTATIN 500,000 UNIT/5 ML UDC 500000 UNIT PO ×2 (10:17→13:49)
[2024-02-04] MEDS: Benztropine Mesylate 0.5 MG TABLET PO (10:17)
[2024-02-04] MEDS: Acyclovir 200 MG Capsule 400 MG PO (10:17)
[2024-02-04] MEDS: Venlafaxine XR 75 MG Capsule PO (10:17)
[2024-02-04] MEDS: HYDROmorphone 1 MG/ML Syringe IV (10:52)
[2024-02-04 11:18] LABS: Bedside Glucose 106 mg/dL (74-106)
--- NOTE | 2024-02-04 13:30 | CASEMGMT ---
[facility] readmission note: Index admission: Admitted 01/25 w/pancreatitis; recurrent and intractable N/V. She underwent an ERCP on the and noted to have choledocholithiasis with 1 stone that was removed. She also had dilation of the common bile duct. Discharged home 01/29. Current admission: Admitted 02/03 w/pancreatitis. [facility] to room. Pt states she did get her new rx's @ discharge and has been taking her medications as prescribed. She states she was scheduled to get a pain infusion 01/30, but had started running a fever that day and was too sick to go. She states she did have virtual visit w/Dr Fernandez, pain mgnt @ /[place] after that and no med changes were made. She has upcoming appts w/PCP 02/06, a GI virtual visit scheduled for 02/07, and an appt w/Dr Mello in April. She states she feels she has a good handle on her medications and appts and denies having and needs from [facility]. Per Dr Collins note, CT imaging shows ongoing pancreatitis 4 cm phlegmon/developing abscess on CAT scan report. Other possibilities could be pseudocyst. Pt is awaiting transfer to [facility]
[2024-02-04] MEDS: HYDROmorphone 0.5 MG/0.5 ML SYRINGE IV (13:56)
--- NOTE | 2024-02-04 14:33 | CON.PCM.GI_ITS ---
HPI Consult Data Date of Consult: 02/04/24 HPI Narrative Reason for Consultation: Pancreatitis HPI Narrative: DOROTHEA RUTLEDGE, is a 48 F who presented to [facility] ED with recurrent abdominal pain and elevated blood sugars. Patient was laying in bed and appeared fairly comfortable, in no acute distress. Patient reported mild abdominal pain during our encounter, had experienced some relief of pain with the dose of IV Dilaudid that have been given prior to my interview. Patient has complicated history of chronic pancreatitis with chronic abdominal pain, with several ED visits and admissions recently. Follows with GI and pain management with . Had a PICC line placed at the beginning of July and received her first infusion of IV lidocaine and ketamine on 08/02 as prescribed by her pain management physician. Patient states that this infusion was helpful initially for pain, however the effect seems to have worn off for the most part now. Notes that she does have infusions scheduled again for August 23 and September 06. Appears that she is only taking oxycodone as needed at home for the pain, along with her litany of other home medications for various medical conditions. Gurwinder gin is concerned about her elevated blood glucose levels. States she was in the ED 3 days ago and her blood sugar was over 500. Notes that she has had blood sugars in the 200s and 300s since earlier this month, states she had never had issues with her blood sugars up to that point. She denies any polyuria or polydipsia. Denies any lightheadedness or dizziness. Has been feeling nauseous and not eating much over the past few days. Patient otherwise denies any fevers or chills, chest pain, shortness of breath. No other acute concerns currently. She recently was admitted to the hospital for choledocholithiasis status post ERCP with stent placement. Patient states she was feeling really good until recently. When she came in the hospital on last visit she had acute pancreatitis and improved with conservative therapy. [facility] [place] Medical History (Updated 02/04/24 @ 01:16 by Reny Martinez) Diabetes Chronic pain Pancreatitis GI bleed Pulmonary embolism Smoker Acute on chronic pancreatitis Pancreatitis Chronic constipation Vitamin D deficiency Depression GERD (gastroesophageal reflux disease) DVT (deep venous thrombosis) Stroke/cerebrovascular accident Epilepsy Substance abuse History of CVA (cerebrovascular accident) Seizure disorder Presence of IVC filter Anxiety History of pulmonary embolus (PE) Factor V Leiden mutation Hyperlipidemia Hypertension Home Medications ?Medication ?Instructions ?Recorded ?Last Taken ?Type furosemide 40 mg tablet 40 mg PO DAILY water pill 09/10/16 08/17/23 History valacyclovir 500 mg tablet 500 mg PO DAILY herpes 10/25/18 08/17/23 History (Valtrex) linaclotide 290 mcg capsule 290 mcg PO DAILY bowels 05/28/21 08/17/23 History (Linzess) methenamine hippurate 1 gram 1 g PO QHS bladder infections 12/03/21 08/16/23 History tablet (Hiprex) venlafaxine 150 mg 150 mg PO QHS mood 12/03/21 08/17/23 History capsule,extended release 24 hr (Effexor XR) cholecalciferol (vitamin D3) 1,250 50,000 unit PO FR supplement 02/05/23 08/12/23 History mcg (50,000 unit) capsule omeprazole 40 mg capsule,delayed 40 mg PO BID 02/23/23 08/17/23 History release fenofibrate nanocrystallized 145 145 mg PO QHS cholesterol 05/07/23 08/16/23 History mg tablet aripiprazole 10 mg tablet 10 mg PO DAILY MOOD 06/23/23 08/17/23 History benztropine 0.5 mg tablet 0.5 mg PO BID mood 06/23/23 07/21/23 History divalproex 250 mg tablet,delayed 250 mg PO Q12H 06/23/23 08/17/23 History release clonidine HCl 0.2 mg tablet 0.2 mg PO QHS 07/22/23 08/17/23 History metoprolol succinate 25 mg 25 mg PO DAILY heart health 07/22/23 08/17/23 History tablet,extended release 24 hr melatonin 10 mg tablet 5 mg PO QHS PRN sleep 08/17/23 Unknown History pen needle, diabetic 31 gauge x #100 ea 08/18/23 Unknown Rx 1/3 promethazine 25 mg tablet 25 mg PO TID PRN nausea and 10/23/23 Unknown Rx vomiting 7 days #21 tabs enoxaparin 100 mg/mL subcutaneous 100 mg subcut Q12H 01/19/24 Unknown History syringe glipizide 10 mg tablet, extended 10 mg PO QDAY diabetes 01/19/24 Unknown History release 24 hr hydroxyzine HCl 25 mg tablet 25 mg PO BID PRN anxiety #60 tabs 01/19/24 Unknown Rx venlafaxine 75 mg capsule,extended 75 mg PO QDAY mood 01/19/24 Unknown History release 24 hr doxepin 10 mg capsule 10 mg PO QHS #30 caps 01/25/24 Unknown Rx lactulose 10 gram/15 mL oral 15 ml PO BID PRN constipation 01/26/24 Unknown History solution nitrofurantoin 100 mg PO DAILY PRN after sex 01/26/24 Unknown History monohydrate/macrocrystals 100 mg capsule (Macrobid) potassium chloride 20 mEq 20 meq PO TID supplement 01/26/24 Unknown History tablet,extended release acetaminophen 500 mg tablet 1,000 mg (2 x 500 mg) PO Q8 #0 tabs 01/30/24 Unknown Rx lidocaine HCl 2 % mucosal solution 10 ml PO Q4H PRN PRN MOUTH 01/30/24 Unknown Rx (Lidocaine Viscous) IRRITATION 1 week #600 mL nicotine 14 mg/24 hr daily 14 mg transdermal DAILY 28 days 01/30/24 Unknown Rx transdermal patch #28 ea nystatin 100,000 unit/mL oral 500,000 unit (5 mL) PO 4X/DAY 7 01/30/24 Unknown Rx suspension days #140 mL insulin aspart U-100 100 unit/mL 18 unit subcut TID blood sugar 02/04/24 Unknown History (3 mL) subcutaneous pen (Novolog FlexPen U-100 Insulin aspart) insulin glargine U-300 conc 300 55 unit subcut DAILY diabetes 02/04/24 02/03/24 10:00 History unit/mL (3 mL) subcutaneous pen (Toujeo Max U-300 SoloStar) [id number] 2 cap PO TID pancreas health 02/04/24 Unknown History 12,000-38,000-60,000 unit capsule,delayed rel (Creon) simethicone 80 mg chewable tablet 160 mg PO TIDPC PRN abdominal 02/04/24 Unknown History distention Allergy/AdvReac Type Severity Reaction Status Date / Time gabapentin (From Neurontin) Allergy Rash Verified 02/04/24 01:51 Penicillins Allergy Rash Verified 02/04/24 01:51 Sulfa (Sulfonamide Allergy Rash Verified 02/04/24 01:51 Antibiotics) Family History Mother Hypertension Hyperlipidemia Father Heart disease Surgical History H/O: History of embolic filter insertion History of appendectomy Hx of cholecystectomy History of hysterectomy Social History household members: none Smoking Status: Current every day smoker tobacco type: e-cigarettes alcohol intake: former substance use type: marijuana ROS ROS Narrative Review of systems: General: Patient denies fever or chills. HENT: Denies headache, denies stuffy nose, denies sore throat EYES: Denies changes in vision or discharge from eyes. Resp: Denies cough, denies shortness of breath Cardiac: Denies chest pain, palpitations or heart racing. GI: Patient admits to severe abdominal pain with nausea, bilious emesis and nonbloody diarrhea as per HPI. : Denies changes in urination Extremity: Denies swelling Musculoskeletal: Feels somewhat generally weak and unwell but denies arthralgias or myalgias. Neuro: Patient denies headache, paresthesias or focal neurologic weakness. Heme: Denies any bleeding or bruising Skin: Denies rashes Psychiatric: No complaints voiced related to uncontrolled depression or anxiety. Endocrine: No polyuria, polydipsia or polyphagia. The rest of the 14 point ROS was negative except for positives in HPI. Physical Exam Narrative Seen and examined. Patient has abdominal cramps. Not accompanied facial expression or rebound tenderness. Had good bowel movement after [place]ius. Physical exam General: Alert, Oriented x3, Cooperative, morbid obesity BMI 43.9 kg/m? HEENT: Atraumatic, PERRLA, EOMI, Normocephalic Oral: No Gingival or Mucosal Lesions/ Ulcerations Neck: Supple, No JVD, Negative Carotid Bruits Chest wall/Lungs: Air entry diminished in bilateral lung bases. No crepitation/rhonchi Cardiovascular: Regular rate, Regular Rhythm, Normal S1, Normal S2, No M/G/R Abdomen: Bowel Sounds Present, Soft, Non Tender, mild abdominal distention seems gastric/tympanic : No dysuria. No renal angle tenderness. No suprapubic tenderness. Extremities: No edema, Capillary Refill Less than 3 Seconds Skin: No rashes, No breakdown Musculoskeletal: No Tenderness to Palpation of Joints or Extremities Neurological: Cranial nerves II-XII grossly intact, DTR 2+/4. No acute focal neurological deficit. Psych/Mental Status: Flat affect. Lab / Micro Data 02/04/24 06:10 02/04/24 06:10 Labs: Laboratory Results - last 24 hr 02/03/24 18:34: WBC 13.4 H, RBC 4.12 L, Hgb 11.8 L, Hct 38.0, MCV 92.2, MCH 28.6, MCHC 31.1 L, RDW Std Deviation 46.3 H, RDW Coeff of Megan 13.7, Plt Count 463 H, MPV 8.2, Immature Gran % (Auto) 2.500 H, Neut % (Auto) 75.4 H, Lymph % (Auto) 11.9 L, [place] % (Auto) 8.6, Eos % (Auto) 0.9, Baso % (Auto) 0.7, Absolute Neuts (auto) 10.1 H, Absolute Lymphs (auto) 1.59, Nucleated RBC % 0, Sodium 136, Potassium 3.7, Chloride 103, Carbon Dioxide 25.0, Anion Gap 8, BUN 12, C reatinine 1.04 H, Estim Creat Clear Calc 75.01, Est GFR (MDRD) Af Amer 72, Est GFR (MDRD) Non-Af 60, BUN/Creatinine Ratio 11.5, Glucose 202 H, Calcium 9.2, Total Bilirubin 0.30, AST 22, ALT 40, Alkaline Phosphatase 144 H, Total Protein 7.9, Albumin 2.9 L, Globulin 5.0 H, Albumin/Globulin Ratio 0.6 L, Lipase 13 02/04/24 06:10: WBC 13.0 H, RBC 3.75 L, Hgb 10.4 L, Hct 34.5 L, MCV 92.0, MCH 27.7, MCHC 30.1 L, RDW Std Deviation 47.1 H, RDW Coeff of Megan 13.9, Plt Count 397, MPV 8.3, Immature Gran % (Auto) 2.300 H, Neut % (Auto) 71.9 H, Lymph % (Auto) 14.1 L, [place] % (Auto) 9.6, Eos % (Auto) 1.6, Baso % (Auto) 0.5, Absolute Neuts (auto) 9.4 H, Absolute Lymphs (auto) 1.84, Nucleated RBC % 0.5, Sodium 136, Potassium 3.6, Chloride 102, Carbon Dioxide 26.0, Anion Gap 8, BUN 9, Creatinine 0.82, Estim Creat Clear Calc 96.84, Est GFR (MDRD) Af Amer 95, Est GFR (MDRD) Non-Af 78, BUN/Creatinine Ratio 10.9, Glucose 102, Calcium 8.3 L, Total Bilirubin 0.20, AST 19, ALT 34, Alkaline Phosphatase 132 H, Total Protein 7.1, Albumin 2.5 L, Globulin 4.6 H, Albumin/Globulin Ratio 0.5 L 02/04/24 07:50: POC Glucose 82 02/04/24 11:01: POC Glucose 106 Imaging Radiology Impression Abdomen/Pelvis CT 02/03/24 19:05 IMPRESSION: 1. Interval placement of biliary stent. No biliary ductal dilatation. 2. Continued pancreatitis with increasing fluid extending inferiorly into the mesentery including a 4 cm phlegmon/developing abscess anteriorly in the mesentery. Electronically Signed: Edwin Bolaños MD at 19:44 EDT , ADDENDUM: 02/03/241954 IMPRESSION: 1. Interval placement of biliary stent. No biliary ductal dilatation. 2. Continued pancreatitis with increasing fluid extending inferiorly into the mesentery including a 4 cm phlegmon/developing abscess anteriorly in the mesentery. N.B. : The above Results were Read Back by Edwin Bolaños MD to Jg Medley NP, and understanding confirmed on 02/03/2024 19:48:20 (ET). Electronically Signed: Edwin Bolaños MD at 19:44 EDT , Assessment & Plan Assessment/Plan (1) Phlegmon of pancreas: PLAN: Plan Acute on chronic pancreatitis * CT imaging shows ongoing pancreatitis 4 cm phlegmon/developing abscess on CAT scan report. Other possibilities could be pseudocyst. I suspect that this is nonresolving pancreatitis from her previous admission from her pancreatitis. She is status post drainage of pseudocyst. It is not known if she is still drinking alcohol. Her chronic pancreatitis is from alcoholic pancreatitis. * Plan: IV fluids, clear liquid diet, , continue antibiotics . History of alcohol abuse (quit 2013); with chronic pancreatitis. Alcohol level negative * Polysubstance abuse history: Urine drug screen on showed opiates and cannabinoids. Chronic protal vein thrombosis * Patient has a history of factor V Leiden deficiency history of VTE. * Plan: Continue with weight-based dosing of enoxaparin. Diabetes mellitus type 2: * Insulin-dependent * Previous A1c 7.1. Continue with her glargine, prandial insulin. Sliding scale insulin. Disposition: Awaiting on bed availability at [facility]. No timeframe yet on how soon that would be. Charges/Coding Visit Charges Inpatient E&M: 07602 [facility] L[facility]
--- NOTE | 2024-02-04 15:17 | DS.PCM_ITS ---
Providers Date of Admission: 02/04/24 Date of Discharge: 02/04/24 Primary Care Physician: Rin Rivera, AMIE Consultations 02/04/24 00:54 Consult: Gastroenterology Routine Consulting Provider: [facility] Reason for Consult: recurrent pancreatitis. EMERGENT Consult: No MD Notified: Yes Date Notified: 02/04/24 Time Notified: 00:15 Method of Notification: ED Physician Initiated Reason For Visit: PANCREATITIS Diagnosis Discharge Diagnosis (1) Phlegmon of pancreas: Status: Acute Code(s): K85.90 - Acute pancreatitis without necrosis or infection, unspecified Plan 48-year-old female with history of chronic pancreatitis was admitted with increased abdominal pain, fever, 101 Fahrenheit chills, nausea and vomiting. She had interval placement of biliary stent during previous mentation from January [address] shows 4 cm phlegmon/developing abscess anteriorly in the mesentery with increasing fluid extending inferiorly into the mesentery. Acute on chronic pancreatitis with complicated phlegmon/early developing abscess * CT imaging shows ongoing pancreatitis 4 cm phlegmon/developing abscess on CAT scan report. Other possibilities could be pseudocyst. Patient is on IV cefepime, continued patient managed with IV fluid clear liquid diet, discussed with self sealing fuel tank repairer and recommended transfer to tertiary care. Patient was accepted [facility], pending bed ability was [facility] on [facility] floor. Patient has bed available therefore discharged to . Chronic protal vein thrombosis * Patient has a history of factor V Leiden deficiency history of VTE. * Plan: Continue with weight-based dosing of enoxaparin. Diabetes mellitus type 2: * Insulin-dependent * Previous A1c 7.1. Continue with her glargine, prandial insulin. Sliding scale insulin. Chronic conditions: * History of alcohol abuse (quit 2013); with chronic pancreatitis. Alcohol level negative * Polysubstance abuse history: Urine drug screen on showed opiates and cannabinoids. I do not feel there is any need to recheck at this time. * Obesity Class III: complicates management. Long-term weight loss advised. * Essential hypertension: stable. -Continue clonidine, metoprolol succinate * Hyperlipidemia: hold statin. * Chronic CHF - unclear type. Compensated. No need for echocardiogram at this time. * History of CVA: unclear type. Stable. * Seizure disorder; on divalproex - Valproic acid level previously low. No change to therapy at this time. * History of herpes: unknown type. Continue valganciclovir. * GERD - Continue PPI IV. * Depression with anxiety - continue priro aripiprazole, doxepin * History of UTIs: Hold nitrofurantoin and methenamine while on cefepime. DVT prophylaxis -not indicated as patient is already anticoagulated. Patient is hemodynamically stable for transfer to Medications at Discharge Home Medications furosemide 40 mg tablet 40 mg PO DAILY water pill 09/10/16 valacyclovir 500 mg tablet (Valtrex) 500 mg PO DAILY herpes 10/25/18 linaclotide 290 mcg capsule (Linzess) 290 mcg PO DAILY bowels 05/28/21 methenamine hippurate 1 gram tablet (Hiprex) 1 g PO QHS bladder infections 12/03/21 venlafaxine 150 mg capsule,extended release 24 hr (Effexor XR) 150 mg PO QHS mood 12/03/21 cholecalciferol (vitamin D3) 1,250 mcg (50,000 unit) capsule 50,000 unit PO FR supplement 02/05/23 omeprazole 40 mg capsule,delayed release 40 mg PO BID 02/23/23 fenofibrate nanocrystallized 145 mg tablet 145 mg PO QHS cholesterol 05/07/23 aripiprazole 10 mg tablet 10 mg PO DAILY MOOD 06/23/23 benztropine 0.5 mg tablet 0.5 mg PO BID mood 06/23/23 divalproex 250 mg tablet,delayed release 250 mg PO Q12H 06/23/23 clonidine HCl 0.2 mg tablet 0.2 mg PO QHS 07/22/23 metoprolol succinate 25 mg tablet,extended release 24 hr 25 mg PO DAILY heart health 07/22/23 melatonin 10 mg tablet 5 mg PO QHS PRN sleep 08/17/23 pen needle, diabetic 31 gauge x 1/3 #100 ea 08/18/23 promethazine 25 mg tablet 25 mg PO TID PRN nausea and vomiting 7 days #21 tabs 10/23/23 enoxaparin 100 mg/mL subcutaneous syringe 100 mg subcut Q12H 01/19/24 glipizide 10 mg tablet, extended release 24 hr 10 mg PO QDAY diabetes 01/19/24 hydroxyzine HCl 25 mg tablet 25 mg PO BID PRN anxiety #60 tabs 01/19/24 venlafaxine 75 mg capsule,extended release 24 hr 75 mg PO QDAY mood 01/19/24 doxepin 10 mg capsule 10 mg PO QHS #30 caps 01/25/24 lactulose 10 gram/15 mL oral solution 15 ml PO BID PRN constipation 01/26/24 nitrofurantoin monohydrate/macrocrystals 100 mg capsule (Macrobid) 100 mg PO DAILY PRN after sex 01/26/24 potassium chloride 20 mEq tablet,extended release 20 meq PO TID supplement 01/26/24 acetaminophen 500 mg tablet 1,000 mg (2 x 500 mg) PO Q8 #0 tabs 01/30/24 lidocaine HCl 2 % mucosal solution (Lidocaine Viscous) 10 ml PO Q4H PRN PRN MOUTH IRRITATION 1 week #600 mL 01/30/24 nicotine 14 mg/24 hr daily transdermal patch 14 mg transdermal DAILY 28 days #28 ea 01/30/24 nystatin 100,000 unit/mL oral suspension 500,000 unit (5 mL) PO 4X/DAY 7 days #140 mL 01/30/24 insulin aspart U-100 100 unit/mL (3 mL) subcutaneous pen (Novolog FlexPen U-100 Insulin aspart) 18 unit subcut TID blood sugar 02/04/24 insulin glargine U-300 conc 300 unit/mL (3 mL) subcutaneous pen (Toujeo Max U- 300 SoloStar) 55 unit subcut DAILY diabetes 02/04/24 [id number] 12,000-38,000-60,000 unit capsule,delayed rel (Creon) 2 cap PO TID pancreas health 02/04/24 simethicone 80 mg chewable tablet 160 mg PO TIDPC PRN abdominal distention 02/04/24 Physical Exam Narrative Seen and examined. Patient was admitted with fever chill and abdominal pain after her recent admission and was discharged after ERCP and biliary stenting. Physical exam General: Alert, Oriented x3, Cooperative HEENT: Atraumatic, PERRLA, EOMI, Normocephalic Oral: No Gingival or Mucosal Lesions/ Ulcerations Neck: Supple, No JVD, Negative Carotid Bruits Chest wall/Lungs: Air entry diminished in bilateral lung bases. No crepitation/rhonchi Cardiovascular: Regular rate, Regular Rhythm, Normal S1, Normal S2, No M/G/R Abdomen: Bowel Sounds present but sluggish. Tenderness present over mid abdomen region. No peritoneal guarding or rigidity. : No dysuria. No renal angle tenderness. No suprapubic tenderness. Extremities: No edema, Capillary Refill Less than 3 Seconds Skin: No rashes, No breakdown Musculoskeletal: No Tenderness to Palpation of Joints or Extremities Neurological: Cranial nerves II-XII grossly intact, DTR 2+/4. No acute focal neurological deficit. Psych/Mental Status: Flat affect Weight / BMI Weight Weight: 234 lb 2.095 oz Body Mass Index (BMI) 41.4 ABG / Lab / Microbiology Data 02/04/24 06:10 02/04/24 06:10 Laboratory: Laboratory Results - last 24 hr 02/03/24 18:34: WBC 13.4 H, RBC 4.12 L, Hgb 11.8 L, Hct 38.0, MCV 92.2, MCH 28.6, MCHC 31.1 L, RDW Std Deviation 46.3 H, RDW Coeff of Megan 13.7, Plt Count 463 H, MPV 8.2, Immature Gran % (Auto) 2.500 H, Neut % (Auto) 75.4 H, Lymph % (Auto) 11.9 L, Collin % (Auto) 8.6, Eos % (Auto) 0.9, Baso % (Auto) 0.7, Absolute Neuts (auto) 10.1 H, Absolute Lymphs (auto) 1.59, Nucleated RBC % 0, Sodium 136, Potassium 3.7, Chloride 103, Carbon Dioxide 25.0, Anion Gap 8, BUN 12, C reatinine 1.04 H, Estim Creat Clear Calc 75.01, Est GFR (MDRD) Af Amer 72, Est GFR (MDRD) Non-Af 60, BUN/Creatinine Ratio 11.5, Glucose 202 H, Calcium 9.2, Total Bilirubin 0.30, AST 22, ALT 40, Alkaline Phosphatase 144 H, Total Protein 7.9, Albumin 2.9 L, Globulin 5.0 H, Albumin/Globulin Ratio 0.6 L, Lipase 13 02/04/24 06:10: WBC 13.0 H, RBC 3.75 L, Hgb 10.4 L, Hct 34.5 L, MCV 92.0, MCH 27.7, MCHC 30.1 L, RDW Std Deviation 47.1 H, RDW Coeff of Megan 13.9, Plt Count 397, MPV 8.3, Immature Gran % (Auto) 2.300 H, Neut % (Auto) 71.9 H, Lymph % (Auto) 14.1 L, Collin % (Auto) 9.6, Eos % (Auto) 1.6, Baso % (Auto) 0.5, Absolute Neuts (auto) 9.4 H, Absolute Lymphs (auto) 1.84, Nucleated RBC % 0.5, Sodium 136, Potassium 3.6, Chloride 102, Carbon Dioxide 26.0, Anion Gap 8, BUN 9, Creatinine 0.82, Estim Creat Clear Calc 96.84, Est GFR (MDRD) Af Amer 95, Est GFR (MDRD) Non-Af 78, BUN/Creatinine Ratio 10.9, Glucose 102, Calcium 8.3 L, Total Bilirubin 0.20, AST 19, ALT 34, Alkaline Phosphatase 132 H, Total Protein 7.1, Albumin 2.5 L, Globulin 4.6 H, Albumin/Globulin Ratio 0.5 L 02/04/24 07:50: POC Glucose 82 02/04/24 11:01: POC Glucose 106 Radiography Diagnostic Testing: Radiology Impression Abdomen/Pelvis CT 02/03/24 19:05 IMPRESSION: 1. Interval placement of biliary stent. No biliary ductal dilatation. 2. Continued pancreatitis with increasing fluid extending inferiorly into the mesentery including a 4 cm phlegmon/developing abscess anteriorly in the mesentery. Electronically Signed: Edwin Bolaños MD at 19:44 EDT , ADDENDUM: 02/03/241954 IMPRESSION: 1. Interval placement of biliary stent. No biliary ductal dilatation. 2. Continued pancreatitis with increasing fluid extending inferiorly into the mesentery including a 4 cm phlegmon/developing abscess anteriorly in the mesentery. N.B. : The above Results were Read Back by Edwin Bolaños MD to Jg Medley NP, and understanding confirmed on 02/03/2024 19:48:20 (ET). Electronically Signed: Edwin Bolaños MD at 19:44 EDT , Meaningful Use Info Meaningful Use Meaningful Use Diagnoses (Choose all that apply): None applicable Ischemic Stroke Statin Dosing Therapy Reference: STATIN DOSE THERAPY REFERENCE: * Patients > 75 years receive moderate or high dose statin therapy. * Patients 75 years or YOUNGER should receive HIGH intensity statin dose unless contraindicated. You will be required to document reason for non-treatment if statin daily dose does not meet guidelines. HIGH DOSE STATIN THERAPY DAILY Atorvastatin > than or = to 40 mg Rosuvastatin > than or = to 20 mg Amlodipine + Atorvastatin > than or = to 2.5/40 mg Ezetimibe + Simvastatin 10/80 mg Simvastatin 80mg Discharge Plan Admission Admit Date/Time: 02/04/24 00:08 Attending Provider: Wyatt Collins Primary Care Provider: Rin Rivera MANAGER OFFICE Consulting Providers: John Remy Discharge Orders/Prescriptions Prescriptions: No Action omeprazole 40 mg capsule,delayed release(DR/EC) 40 mg PO BID glipizide 10 mg tablet extended release 24hr 10 mg PO QDAY enoxaparin 100 mg/mL syringe 100 mg subcut Q12H venlafaxine 75 mg capsule,extended release 24hr 75 mg PO QDAY hydroxyzine HCl 25 mg tablet 25 mg PO BID PRN (Reason: anxiety) Qty: 60 1RF furosemide 40 MG tablet 40 mg PO DAILY valacyclovir [Valtrex] 500 MG tablet 500 mg PO DAILY Linzess 290 mcg capsule 290 mcg PO DAILY methenamine hippurate [Hiprex] 1 gram Tablet 1 g PO QHS venlafaxine [Effexor XR] 150 mg Capsule,Extended Release 24hr 150 mg PO QHS cholecalciferol (vitamin D3) 1,250 mcg (50,000 unit) capsule 50,000 unit PO FR aripiprazole 10 mg tablet 10 mg PO DAILY benztropine 0.5 mg tablet 0.5 mg PO BID divalproex 250 mg tablet,delayed release (DR/EC) 250 mg PO Q12H clonidine HCl 0.2 mg tablet 0.2 mg PO QHS metoprolol succinate 25 mg tablet extended release 24 hr 25 mg PO DAILY promethazine 25 mg tablet 25 mg PO TID PRN (Reason: nausea and vomiting) 7 Days Qty: 21 0RF fenofibrate nanocrystallized 145 mg tablet 145 mg PO QHS melatonin 10 mg tablet 5 mg PO QHS PRN (Reason: sleep) (DME) pen needle, diabetic 31 gauge x 1/3 needle See Rx Instructions .Route Qty: 100 0RF Rx Instructions: As directed potassium chloride 20 mEq tablet extended release 20 meq PO TID nitrofurantoin monohyd/m-cryst [Macrobid] 100 mg capsule 100 mg PO DAILY PRN (Reason: after sex) lactulose 10 gram/15 mL solution 15 ml PO BID PRN (Reason: constipation) nystatin 100,000 unit/mL Suspension 500,000 unit PO 4X/DAY 7 Days Qty: 140 0RF nicotine 14 mg/24 hr Patch 24 Hour 14 mg transdermal DAILY 28 Days Qty: 28 0RF acetaminophen 500 mg Tablet 1,000 mg PO Q8 Qty: 0 0RF lidocaine HCl [Lidocaine Viscous] 2 % Solution 10 ml PO Q4H PRN PRN (Reason: MOUTH IRRITATION) 7 Days Qty: 600 0RF Creon 12,000-38,000 -60,000 unit capsule,delayed release(DR/EC) 2 cap PO TID simethicone 80 mg Tablet,Chewable 160 mg PO TIDPC PRN (Reason: abdominal distention) Rx Instructions: [id number]-ckk-drbwrll insulin aspart U-100 [Novolog FlexPen U-100 Insulin] 100 unit/mL (3 mL) insulin pen 18 unit subcut TID insulin glargine U-300 conc [Toujeo Max U-300 SoloStar] 300 unit/mL (3 mL) insulin pen 55 unit subcut DAILY doxepin 10 mg capsule 10 mg PO QHS Qty: 30 1RF Referrals / Follow Up: Rin Rivera NP, MANAGER OFFICE-C [Primary Care Provider] - Disposition Discharge Orders: Discharge Patient (Routine); Ordered 02/04/24 Ordered By: Dr. Wyatt Collins Charges/Coding Visit Charges Inpatient E&M: 36936 Disch Hosp >30min
== END 2024-02-04 15:20 | disposition short-term general hospital (02) | DRG 438 ==
LOC: ED 23:53 → MS3 02-04 00:20
PROVIDERS: Nurse Practitioner; Emergency Provider Emergency Medicine; PCP Nurse Practitioner Family; Visit Provider Internal Medicine
DX: K85.90 Acute pancreatitis without necrosis or infection, unspecified (principal); K65.1 Peritoneal abscess; I81 Portal vein thrombosis; D68.51 Activated protein C resistance; Z68.41 Body mass index [BMI] 40.0-44.9, adult; E11.65 Type 2 diabetes mellitus with hyperglycemia; E66.01 Morbid (severe) obesity due to excess calories; E78.5 Hyperlipidemia, unspecified; G40.909 Epilepsy, unspecified, not intractable, without status epilepticus; I11.0 Hypertensive heart disease with heart failure; Z79.4 Long term (current) use of insulin; I50.9 Heart failure, unspecified; K86.1 Other chronic pancreatitis; F17.290 Nicotine dependence, other tobacco product, uncomplicated; K21.9 Gastro-esophageal reflux disease without esophagitis; F41.8 Other specified anxiety disorders; Z95.828 Presence of other vascular implants and grafts; Z86.73 Personal history of transient ischemic attack (TIA), and cerebral infarction without residual deficits; Z79.01 Long term (current) use of anticoagulants; Z79.899 Other long term (current) drug therapy; Z86.718 Personal history of other venous thrombosis and embolism; Z86.711 Personal history of pulmonary embolism
CPT/HCPCS: 36415; 74177; 80053; 82962; 83690; 85025; 97802; 99285; J7030; J7050; Q9967; A4216; J2405

== ENCOUNTER 2024-04-29 10:36 | Emergency (ER) | payer MEDICARE, SELFPAY ==
[2024-04-29 10:37] VITALS: BP 125/102; PULSE 99; RESP 18; TEMP 36.3; O2SAT 100; BMI 37.5
--- NOTE | 2024-04-29 11:17 | EDS_ITS ---
HPI <AMIE Clark - Last Filed: 04/29/24 13:42> History of Present Illness Chief Complaint: Abscess Narrative Narrative: Patient is a 48-year-old female with history of diabetes, chronic pancreatitis, who presents to the [facility] for concerns of an abscess to the right perineal area. Patient states it has been there for 1 week to 1-1/2 weeks, patient is getting more painful is here for evaluation. Denies any fever chills nausea or vomiting. Denies any drainage noted. [facility] <AMIE Clark - Last Filed: 04/29/24 13:42> [facility] Medical History (Updated 04/29/24 @ 13:40 by AMIE Clark) Diabetes Chronic pain Pancreatitis GI bleed Pulmonary embolism Smoker Acute on chronic pancreatitis Pancreatitis Chronic constipation Vitamin D deficiency Depression GERD (gastroesophageal reflux disease) DVT (deep venous thrombosis) Stroke/cerebrovascular accident Epilepsy Substance abuse History of CVA (cerebrovascular accident) Seizure disorder Presence of IVC filter Anxiety History of pulmonary embolus (PE) Factor V Leiden mutation Hyperlipidemia Hypertension Home Medications ?Medication ?Instructions ?Recorded ?Last Taken ?Type furosemide 40 mg tablet 40 mg PO DAILY water pill 09/10/16 08/17/23 History valacyclovir 500 mg tablet 500 mg PO DAILY herpes 10/25/18 08/17/23 History (Valtrex) linaclotide 290 mcg capsule 290 mcg PO DAILY bowels 05/28/21 08/17/23 History (Linzess) methenamine hippurate 1 gram 1 g PO QHS bladder infections 12/03/21 08/16/23 History tablet (Hiprex) venlafaxine 150 mg 150 mg PO QHS mood 12/03/21 08/17/23 History capsule,extended release 24 hr (Effexor XR) cholecalciferol (vitamin D3) 1,250 50,000 unit PO FR supplement 02/05/23 08/12/23 History mcg (50,000 unit) capsule omeprazole 40 mg capsule,delayed 40 mg PO BID 02/23/23 08/17/23 History release fenofibrate nanocrystallized 145 145 mg PO QHS cholesterol 05/07/23 08/16/23 History mg tablet aripiprazole 10 mg tablet 10 mg PO DAILY MOOD 06/23/23 08/17/23 History benztropine 0.5 mg tablet 0.5 mg PO BID mood 06/23/23 07/21/23 History divalproex 250 mg tablet,delayed 250 mg PO Q12H 06/23/23 08/17/23 History release clonidine HCl 0.2 mg tablet 0.2 mg PO QHS 07/22/23 08/17/23 History metoprolol succinate 25 mg 25 mg PO DAILY heart health 07/22/23 08/17/23 History tablet,extended release 24 hr melatonin 10 mg tablet 5 mg PO QHS PRN sleep 08/17/23 Unknown History pen needle, diabetic 31 gauge x #100 ea 08/18/23 Unknown Rx / promethazine 25 mg tablet 25 mg PO TID PRN nausea and 10/23/23 Unknown Rx vomiting 7 days #21 tabs enoxaparin 100 mg/mL subcutaneous 100 mg subcut Q12H 01/19/24 Unknown History syringe glipizide 10 mg tablet, extended 10 mg PO QDAY diabetes 01/19/24 Unknown History release 24 hr hydroxyzine HCl 25 mg tablet 25 mg PO BID PRN anxiety #60 tabs 01/19/24 Unknown Rx venlafaxine 75 mg capsule,extended 75 mg PO QDAY mood 01/19/24 Unknown History release 24 hr doxepin 10 mg capsule 10 mg PO QHS #30 caps 01/25/24 Unknown Rx lactulose 10 gram/15 mL oral 15 ml PO BID PRN constipation 01/26/24 Unknown History solution nitrofurantoin 100 mg PO DAILY PRN after sex 01/26/24 Unknown History monohydrate/macrocrystals 100 mg capsule (Macrobid) potassium chloride 20 mEq 20 meq PO TID supplement 01/26/24 Unknown History tablet,extended release acetaminophen 500 mg tablet 1,000 mg (2 x 500 mg) PO Q8 #0 tabs 01/30/24 Unknown Rx lidocaine HCl 2 % mucosal solution 10 ml PO Q4H PRN PRN MOUTH 01/30/24 Unknown Rx (Lidocaine Viscous) IRRITATION 1 week #600 mL nicotine 14 mg/24 hr daily 14 mg transdermal DAILY 28 days 01/30/24 Unknown Rx transdermal patch #28 ea nystatin 100,000 unit/mL oral 500,000 unit (5 mL) PO 4X/DAY 7 01/30/24 Unknown Rx suspension days #140 mL insulin aspart U-100 100 unit/mL 18 unit subcut TID blood sugar 02/04/24 Unknown History (3 mL) subcutaneous pen (Novolog FlexPen U-100 Insulin aspart) insulin glargine U-300 conc 300 55 unit subcut DAILY diabetes 02/04/24 02/03/24 10:00 History unit/mL (3 mL) subcutaneous pen (Toujeo Max U-300 SoloStar) [id number] 2 cap PO TID pancreas health 02/04/24 Unknown History 12,000-38,000-60,000 unit capsule,delayed rel (Creon) simethicone 80 mg chewable tablet 160 mg PO TIDPC PRN abdominal 02/04/24 Unknown History distention doxycycline hyclate 100 mg capsule 100 mg PO BID #20 caps 04/29/24 Unknown Rx oxycodone-acetaminophen 5 mg-325 1 tab PO Q8H PRN pain 2 days #4 04/29/24 Unknown Rx mg tablet (Percocet) tabs Allergy/AdvReac Type Severity Reaction Status Date / Time gabapentin (From Neurontin) Allergy Rash Verified 04/29/24 10:37 Penicillins Allergy Rash Verified 04/29/24 10:37 Sulfa (Sulfonamide Allergy Rash Verified 04/29/24 10:37 Antibiotics) Family History Mother Hypertension Hyperlipidemia Father Heart disease Surgical History H/O: History of embolic filter insertion History of appendectomy Hx of cholecystectomy History of hysterectomy Social History household members: none Smoking Status: Current every day smoker tobacco type: e-cigarettes alcohol intake: former substance use type: marijuana ROS <AMIE Clark - Last Filed: 04/29/24 13:42> [facility] ROS Narrative Constitutional: Negative for fever, chills, weight loss, weakness Eyes: Negative for vision loss, vision change, double vision ENT: Negative for any sore throat, ear pain, congestion Cardiovascular: Negative for any chest pain, tightness, palpitations Respiratory: Negative for any cough, sputum production, hemoptysis, dyspnea, dyspnea on exertion, orthopnea Gastrointestinal: Negative for any abdominal pain, nausea, vomiting, diarrhea, constipation, blood in stool, blood in vomit : Negative for any urinary frequency, dysuria, retention, blood in urine Muscle skeletal: Negative for any neck pain, back pain Neurological: Negative for any headache, syncope, dizziness Skin: Negative for any rashes, itching, abrasions, lacerations. Positive for concern of abscess to the right perineal area Psychiatric: Negative for any depression, anxiety, stress, suicidal ideation, homicidal ideation Hematologic: Negative for any excessive bruising, easy bleeding EXAM <AMIE Clark - Last Filed: 04/29/24 13:42> Physical Exam Narrative Exam Narrative: Vital signs reviewed. HEET: Head normocephalic atraumatic, TMs clear bilaterally. Posterior pharynx is clear, moist mucous membranes. Nares clear bilaterally. Neck: Supple with no lymphadenopathy or tenderness. No signs of meningismus. Cardiac: Regular rate and rhythm no murmurs gallops or rubs, equal peripheral pulses bilaterally. Respiratory: Lungs clear to auscultation bilaterally. No chest tenderness. Abdomen: Soft, nontender, nondistended. No abdominal bruit or pulsatile masses. No hepatosplenomegaly Extremities: No peripheral edema, no signs of gross trauma or deformity. Active full range of motion of all extremities. Neuro: Cranial nerves II through XII intact, no focal neurological deficits. Skin: Clean dry and intact with no rash, purpura, petechiae, vesicles or pustules. Backs/flank: No CVA tenderness, no midline spinal tenderness, no deformity. Psych: Normal mood and affect. No SI, HI or acute psychosis. 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 There is no significant fluctuance. The patient does have significant tenderness on palpation. Const Vital Signs: 04/29/24 10:37 Temperature 97.3 F L Temperature Source Temporal Pulse Rate 99 Respiratory Rate 18 Blood Pressure 125/102 H Blood Pressure Mean 109 Pulse Ox 100 Oxygen Delivery Method Room Air <Dr. Licha Simmons DO - Last Filed: 05/04/24 07:30> Physical Exam Const Vital Signs: 04/29/24 10:37 Temperature 97.3 F L Temperature Source Temporal Pulse Rate 99 Respiratory Rate 18 Blood Pressure 125/102 H Blood Pressure Mean 109 Pulse Ox 100 Oxygen Delivery Method Room Air [facility] <AMIE Clark - Last Filed: 04/29/24 13:42> [facility] Treatment and Re-Evaluation :: Differential diagnosis includes however is not limited to: Abscess, cellulitis, necrotizing fasciitis, lymphadenopathy Patient appears to be in no obvious distress vital signs are stable, presenting to the Emergency Department with a abscess to the perineal area on the right side. Patient does not look toxic, the area does have some induration, slight erythema. We did use the ultrasound, so small area of fluid collection. I was able to clean the area with alcohol. Using the ultrasound, I did try to guide the needle 18-gauge into the fluid pocket however was unable to get any fluid out. I then had the attending try, we were unable to get any fluid from the area. At this time, patient will be treated with doxycycline, patient will use warm compresses. Patient received 4 pain pills. She is instructed to return for any worsening symptoms. Patient will take the entire dose of doxycycline, she will be placed on doxycycline secondary to allergy to penicillin and sulfa antibiotics. She is struck to return for any worsening symptoms. Stable for discharge. I have personally performed a face to face assessment of the patient and have reviewed the JAYSHREE Note. I performed a substantive portion of the visit including all aspects of the following. My denise findings include: History is patient is a 48-year-old female with history of chronic pain issues, polysubstance abuse is mellitus, chronic pancreatitis 1 week of right buttock/perineal pain. Patient has area of erythema, induration and localized area of fluctuance of her right buttocks. It does not go into the perineum itself. Bedside ultrasound performed by myself distant with a abscess. Incision and drainage will be obtained and will attempt to send off cultures. Patient was placed on antibiotics for this. No findings consistent with Blas's gangrene or more severe infection. I do not appreciate any perirectal abscess and I do not think she requires any imaging or surgical consult at this time. Other additions or changes: [None] <Dr. Licha Simmons DO - Last Filed: 05/04/24 07:30> [facility] Treatment and Re-Evaluation :: Differential diagnosis includes however is not limited to: Abscess, cellulitis, necrotizing fasciitis, lymphadenopathy Patient appears to be in no obvious distress vital signs are stable, presenting to the Emergency Department with a abscess to the perineal area on the right side. Patient does not look toxic, the area does have some induration, slight erythema. We did use the ultrasound, so small area of fluid collection. I was able to clean the area with alcohol. Using the ultrasound, I did try to guide the needle 18-gauge into the fluid pocket however was unable to get any fluid out. I then had the attending try, we were unable to get any fluid from the area. At this time, patient will be treated with doxycycline, patient will use warm compresses. Patient received 4 pain pills. She is instructed to return for any worsening symptoms. Patient will take the entire dose of doxycycline, she will be placed on doxycycline secondary to allergy to penicillin and sulfa antibiotics. She is struck to return for any worsening symptoms. Stable for discharge. I have personally performed a face to face assessment of the patient and have reviewed the JAYSHREE Note. I performed a substantive portion of the visit including all aspects of the following. My denise findings include: History is patient is a 48-year-old female with history of chronic pain issues, polysubstance abuse is mellitus, chronic pancreatitis 1 week of right buttock/perineal pain. Patient has area of erythema, induration and localized area of fluctuance of her right buttocks. It does not go into the perineum itself. Bedside ultrasound performed by myself distant with a abscess. Incision and drainage will be obtained and will attempt to send off cultures. Patient was placed on antibiotics for this. No findings consistent with Blas's gangrene or more severe infection. I do not appreciate any pe rirectal abscess and I do not think she requires any imaging or surgical consult at this time. Attempted incision and drainage, addition needle aspiration performed. Even with ultrasound guidance performed by myself (see procedure note) there was no purulence expressed and needle was visualized and suspected fluid collection. Will defer further I&D attempt and start the patient on antibiotics. Other additions or changes: [None] Discharge Plan Triage Chief Complaint: Abscess ED Midlevel Provider: Jg Medley ED Provider: Licha Simmons Dx/Rx/DC Orders Clinical Impression: Cellulitis Instructions: Cellulitis Dc Prescriptions: New doxycycline hyclate 100 mg capsule 100 mg PO BID Qty: 20 0RF oxycodone-acetaminophen [Percocet] 5-325 mg tablet 1 tab PO Q8H PRN (Reason: pain) 2 Days Qty: 4 0RF No Action omeprazole 40 mg capsule,delayed release(DR/EC) 40 mg PO BID glipizide 10 mg tablet extended release 24hr 10 mg PO QDAY enoxaparin 100 mg/mL syringe 100 mg subcut Q12H venlafaxine 75 mg capsule,extended release 24hr 75 mg PO QDAY hydroxyzine HCl 25 mg tablet 25 mg PO BID PRN (Reason: anxiety) Qty: 60 1RF furosemide 40 MG tablet 40 mg PO DAILY valacyclovir [Valtrex] 500 MG tablet 500 mg PO DAILY Linzess 290 mcg capsule 290 mcg PO DAILY methenamine hippurate [Hiprex] 1 gram Tablet 1 g PO QHS venlafaxine [Effexor XR] 150 mg Capsule,Extended Release 24hr 150 mg PO QHS cholecalciferol (vitamin D3) 1,250 mcg (50,000 unit) capsule 50,000 unit PO FR aripiprazole 10 mg tablet 10 mg PO DAILY benztropine 0.5 mg tablet 0.5 mg PO BID divalproex 250 mg tablet,delayed release (DR/EC) 250 mg PO Q12H clonidine HCl 0.2 mg tablet 0.2 mg PO QHS metoprolol succinate 25 mg tablet extended release 24 hr 25 mg PO DAILY promethazine 25 mg tablet 25 mg PO TID PRN (Reason: nausea and vomiting) 7 Days Qty: 21 0RF fenofibrate nanocrystallized 145 mg tablet 145 mg PO QHS melatonin 10 mg tablet 5 mg PO QHS PRN (Reason: sleep) (DME) pen needle, diabetic 31 gauge x 1/3 needle See Rx Instructions .Route Qty: 100 0RF Rx Instructions: As directed potassium chloride 20 mEq tablet extended release 20 meq PO TID nitrofurantoin monohyd/m-cryst [Macrobid] 100 mg capsule 100 mg PO DAILY PRN (Reason: after sex) lactulose 10 gram/15 mL solution 15 ml PO BID PRN (Reason: constipation) nystatin 100,000 unit/mL Suspension 500,000 unit PO 4X/DAY 7 Days Qty: 140 0RF nicotine 14 mg/24 hr Patch 24 Hour 14 mg transdermal DAILY 28 Days Qty: 28 0RF acetaminophen 500 mg Tablet 1,000 mg PO Q8 Qty: 0 0RF lidocaine HCl [Lidocaine Viscous] 2 % Solution 10 ml PO Q4H PRN PRN (Reason: MOUTH IRRITATION) 7 Days Qty: 600 0RF Creon 12,000-38,000 -60,000 unit capsule,delayed release(DR/EC) 2 cap PO TID simethicone 80 mg Tablet,Chewable 160 mg PO TIDPC PRN (Reason: abdominal distention) Rx Instructions: [id number] insulin aspart U-100 [Novolog FlexPen U-100 Insulin] 100 unit/mL (3 mL) insulin pen 18 unit subcut TID insulin glargine U-300 conc [Toujeo Max U-300 SoloStar] 300 unit/mL (3 mL) insulin pen 55 unit subcut DAILY doxepin 10 mg capsule 10 mg PO QHS Qty: 30 1RF Primary Care Provider: Rin Rivera NP Referrals: Rin Rivear NP, [employer] [Primary Care Provider] - Activity Restrictions/Additional Instructions: Please use warm compresses. Antibiotics until finished. Print Language: Nepali Disposition Disposition: Home, Self Care Discharge Date/Time: 04/29/24 13:54
[2024-04-29] MEDS: oxyCODONE 5 MG Tablet PO (11:23)
[2024-04-29] MEDS: Doxycycline 100 MG CAPSULE PO (13:52)
[2024-04-29] MEDS: Lidocaine 1% /Epi 1:100 (20ml) 20 ML Vial 3 ML INFILT (13:52)
[2024-04-29 13:53] VITALS: BP 120/87; PULSE 78; RESP 18; TEMP 36.7; O2SAT 98
== END 2024-04-29 13:54 | disposition home or self-care (01) ==
PROVIDERS: Emergency Provider Emergency Medicine; PCP Nurse Practitioner Family; Visit Provider Emergency Medicine
DX: L03.315 Cellulitis of perineum (principal); K86.1 Other chronic pancreatitis; E11.9 Type 2 diabetes mellitus without complications; L02.215 Cutaneous abscess of perineum; F17.290 Nicotine dependence, other tobacco product, uncomplicated; K21.9 Gastro-esophageal reflux disease without esophagitis; I10 Essential (primary) hypertension; E78.5 Hyperlipidemia, unspecified; Z53.09 Procedure and treatment not carried out because of other contraindication
CPT/HCPCS: 10060; 99282

== ENCOUNTER → 2024-05-04 | Outpatient (CLI) | payer MEDICARE, SELFPAY ==
[2024-05-04 16:05] LABS: Absolute Neutrophil Count 4.1 X10^3/uL (2.0-7.7); Basophil# 0.07 X10^3/uL; Basophil% 0.9 % (0-1); Eosinophil# 0.18 X10^3/uL; Eosinophils% 2.4 % (0-5); Hematocrit 42.2 % (37-47); Lymphocyte % 34.8 % (19-41); Mean Corp Hgb Conc 30.8 g/dL (32-36); Mean Corpuscular Hgb 25.8 pg (27.0-32.0); Mean Corpuscular Volume 83.9 fL (81-99); Mean Platelet Vol. 9.2 fl (6.2-12.0); Monocyte# 0.48 X10^3/uL; Monocyte% 6.4 % (0-10); NRBC Flagged by Analyzer 0 % (0-5); Neutrophil # 4.12 X10^3/uL (2.7-7.7); Neutrophil % 55.1 % (47-70); Platelet Count 362 K/mm3 (150-450); RBC Distribution Width CV 15.1 % (11.6-14.6); RBC Distribution Width SD 45.5 fl (35.1-43.9); Red Blood Count 5.03 M/mm3 (4.2-5.4); White Blood Count 7.5 K/mm3 (4.4-11.0)
[2024-05-04 16:35] LABS: Hemoglobin A1c 6.8 % (3.8-5.6)
[2024-05-04 16:43] LABS: Magnesium 2.1 mg/dL (1.6-2.6); T4 Free Direct 0.85 ng/dL (0.76-1.46)
== END | disposition home or self-care (01) ==
PROVIDERS: PCP Nurse Practitioner Family; Referring Provider Internal Medicine Endocrinology, Diabetes & Metabolism; Visit Provider Internal Medicine Endocrinology, Diabetes & Metabolism
DX: E11.65 Type 2 diabetes mellitus with hyperglycemia (principal); Z79.899 Other long term (current) drug therapy
CPT/HCPCS: 36415; 83036; 83735; 84439; 84443; 85025

== ENCOUNTER 2024-05-06 13:37 | Emergency (ER) | payer MEDICARE, SELFPAY ==
[2024-05-06 13:38] VITALS: BP 126/89; PULSE 102; RESP 18; TEMP 36.2; O2SAT 99; BMI 39.5
--- NOTE | 2024-05-06 14:31 | CT_ITS ---
STUDY: CT Abdomen And Pelvis W/ Contrast Injection 05/06/2024 3:56 PM REASON FOR EXAM: Female, 48 years old. ABDOMINAL PAIN hx of buttock abscess on right, increasing pain on oral abx TECHNIQUE: Transaxial images were obtained without oral contrast, and IV 100mL Isovue-370 intravenous contrast. Individualized dose optimization techniques were used for this CT. COMPARISON: 11/11/2022 FINDINGS: The visualized lung bases are unremarkable. The visualized portions of the heart are within normal limits. Healed right rib fractures. There is hepatomegaly with diffuse hepatic enlargement. There are surgical clips in the gallbladder fossa consistent with a prior cholecystectomy. Unremarkable spleen. Unremarkable pancreas. Unremarkable bilateral adrenal glands. No acute findings of the right kidney. No acute findings of the left kidney. Unremarkable visualized stomach. Unremarkable small intestine. Unremarkable colon. There is non-visualization of the appendix. There are no acute findings of the abdominal aorta. There is an IVC filter in place. Subcentimeter mesenteric lymph nodes. Medial right gluteal fold inflammatory changes in the soft tissues suggesting an infectious process. No drainable abscess. Series 2 image 39. Unremarkable urinary bladder. There is absence of the uterus consistent with a prior hysterectomy. Multiple anterior abdominal wall subcutaneous nodules are noted. This may reflect insulin injection sites. There is an umbilical hernia containing fat. Unremarkable osseous structures. CT/Abdomen/Pelvis W IV Cont ONLY IMPRESSION: (NOT LISTED IN ORDER OF SIGNIFICANCE) Medial right gluteal fold inflammatory changes in the soft tissues suggesting an infectious process. No drainable abscess. Enlarged liver. There are surgical clips in the gallbladder fossa consistent with a prior cholecystectomy. Other findings as above. Electronically Signed: Naga Morton MD at 16:00 EDT ,
[2024-05-06 15:17] LABS: Absolute Lymphocyte Count 2.34 X10^3/uL (0.83-4.51); Absolute Neutrophil Count 3.2 X10^3/uL (2.0-7.7); Basophil# 0.06 X10^3/uL; Eosinophil# 0.17 X10^3/uL; Eosinophils% 2.7 % (0-5); Hematocrit 39.6 % (37-47); Hemoglobin 12.1 g/dL (12.0-15.0); Lymphocyte # 2.34 X10^3/ul (0.83-4.51); Lymphocyte % 37.2 % (19-41); Mean Corp Hgb Conc 30.6 g/dL (32-36); Mean Corpuscular Hgb 26.2 pg (27.0-32.0); Mean Corpuscular Volume 85.7 fL (81-99); Mean Platelet Vol. 8.7 fl (6.2-12.0); Monocyte% 7.9 % (0-10); NRBC Flagged by Analyzer 0 % (0-5); Neutrophil # 3.21 X10^3/uL (2.7-7.7); Platelet Count 323 K/mm3 (150-450); RBC Distribution Width CV 15.3 % (11.6-14.6); RBC Distribution Width SD 47.6 fl (35.1-43.9); Red Blood Count 4.62 M/mm3 (4.2-5.4); White Blood Count 6.3 K/mm3 (4.4-11.0)
[2024-05-06] MEDS: Morphine 4 MG/ML Syringe IV (15:17)
[2024-05-06] MEDS: 0.9% Normal Saline (1000mL) 1,000 ML 999 ML IV (15:17)
[2024-05-06] MEDS: Ondansetron 4 MG/2 ML Vial IV (15:17)
[2024-05-06 15:25] LABS: Bacteria 0 SEEN /hpf (None Seen); Mucous, Urine 0 SEEN /hpf (<or=2+); Red Blood Cells-Urine 0 SEEN /hpf (0-5); White Blood Cells 0 SEEN /hpf (0-5)
[2024-05-06 15:33] LABS: ALB/GLOB Ratio 0.9 RATIO (0.9-2.4); AST(SGOT) 41 U/L (15-37); Alanine Aminotransfer ALT/SGPT 56 U/L (13-56); Albumin, Serum 3.6 g/dL (3.2-5.0); Alkaline Phosphatase 136 U/L (45-117); Anion Gap 9 (5-15); BUN 23 mg/dL (7-18); BUN/Creat Ratio 16.9 RATIO (10-20); Calcium,Total 9.1 mg/dL (8.5-10.1); Chloride 108 mmol/L (98-107); Creatinine, Serum 1.36 mg/dL (0.55-1.02); EST Glomerular Filtration Rate 44 mL/min (>60); Est Glom Filt Rate - Afr Amer 53 mL/min (>60); Estimated Creatinine Clearance 56.81 ml/min; Glucose 149 mg/dL (74-106); Protein, Total 7.6 g/dL (6.4-8.2); Sodium Level 138 mmol/L (136-145)
[2024-05-06 15:37] LABS: Color, Urine Straw (Yellow); Glucose, Dipstick Normal (Normal); Ketone-Dipstick Negative (Negative); Leukocyte Esterase-Dipstick 25 /ul (Negative); Nitrite-Dipstick Negative (Negative); Occult Blood-Urine Negative /ul (Negative); Protein-Dipstick Negative (Negative); Specific Gravity, Urine 1.015 (1.002-1.030); Urine Bilirubin Dipstick Negative (Negative); Urine Clarity Clear (Clear); Urine Urobilinogen Normal (Normal)
[2024-05-06 15:38] LABS: Lactic Acid 1.5 mmol/L (0.4-1.9)
[2024-05-06 15:39] LABS: Pregnancy, Urine Negative Negative
[2024-05-06 15:47] LABS: Squamous Epithelial Cells - UA 0-5 SEEN /hpf (5-10)
--- NOTE | 2024-05-06 15:49 | EX.ED.DYSGE1 ---
HPI History of Present Illness Chief Complaint: Wound Check Narrative Narrative: patient is a 48-year-old female with past medical history of factor V Leiden on warfarin, substance abuse, hyperlipidemia, hypertension, PE, DVT, CVA, hemorrhagic stroke, anxiety who presented to the emergency department with a chief complaint of worsening buttock pain. Patient states that she was here recently was diagnosed with a abscess and was placed on doxycycline. States that she has been on this for week now and she states that her symptoms are worsening instead of improving and states that is extremely painful if she tries to sit on that side. Patient denies any fevers. Patient states that the last time she was here they just aspirated it with a needle and would not open this up. She states that in the past she did have a lesion on her lower leg and her primary care physician cut this open and gave her a antibiotic shot and sent her home on oral antibiotics. [facility] Medical History Diabetes Chronic pain Pancreatitis GI bleed Pulmonary embolism Smoker Acute on chronic pancreatitis Pancreatitis Chronic constipation Vitamin D deficiency Depression GERD (gastroesophageal reflux disease) DVT (deep venous thrombosis) Stroke/cerebrovascular accident Epilepsy Substance abuse History of CVA (cerebrovascular accident) Seizure disorder Presence of IVC filter Anxiety History of pulmonary embolus (PE) Factor V Leiden mutation Hyperlipidemia Hypertension Home Medications ?Medication ?Instructions ?Recorded ?Last Taken ?Type furosemide 40 mg tablet 40 mg PO DAILY water pill 09/10/16 08/17/23 History valacyclovir 500 mg tablet 500 mg PO DAILY herpes 10/25/18 08/17/23 History (Valtrex) linaclotide 290 mcg capsule 290 mcg PO DAILY bowels 05/28/21 08/17/23 History (Linzess) methenamine hippurate 1 gram 1 g PO QHS bladder infections 12/03/21 08/16/23 History tablet (Hiprex) venlafaxine 150 mg 150 mg PO QHS mood 12/03/21 08/17/23 History capsule,extended release 24 hr (Effexor XR) cholecalciferol (vitamin D3) 1,250 50,000 unit PO FR supplement 02/05/23 08/12/23 History mcg (50,000 unit) capsule omeprazole 40 mg capsule,delayed 40 mg PO BID 02/23/23 08/17/23 History release fenofibrate nanocrystallized 145 145 mg PO QHS cholesterol 05/07/23 08/16/23 History mg tablet aripiprazole 10 mg tablet 10 mg PO DAILY MOOD 06/23/23 08/17/23 History benztropine 0.5 mg tablet 0.5 mg PO BID mood 06/23/23 07/21/23 History divalproex 250 mg tablet,delayed 250 mg PO Q12H 06/23/23 08/17/23 History release clonidine HCl 0.2 mg tablet 0.2 mg PO QHS 07/22/23 08/17/23 History metoprolol succinate 25 mg 25 mg PO DAILY heart health 07/22/23 08/17/23 History tablet,extended release 24 hr melatonin 10 mg tablet 5 mg PO QHS PRN sleep 08/17/23 Unknown History pen needle, diabetic 31 gauge x #100 ea 08/18/23 Unknown Rx 1/3 promethazine 25 mg tablet 25 mg PO TID PRN nausea and 10/23/23 Unknown Rx vomiting 7 days #21 tabs enoxaparin 100 mg/mL subcutaneous 100 mg subcut Q12H 01/19/24 Unknown History syringe glipizide 10 mg tablet, extended 10 mg PO QDAY diabetes 01/19/24 Unknown History release 24 hr hydroxyzine HCl 25 mg tablet 25 mg PO BID PRN anxiety #60 tabs 01/19/24 Unknown Rx venlafaxine 75 mg capsule,extended 75 mg PO QDAY mood 01/19/24 Unknown History release 24 hr doxepin 10 mg capsule 10 mg PO QHS #30 caps 01/25/24 Unknown Rx lactulose 10 gram/15 mL oral 15 ml PO BID PRN constipation 01/26/24 Unknown History solution nitrofurantoin 100 mg PO DAILY PRN after sex 01/26/24 Unknown History monohydrate/macrocrystals 100 mg capsule (Macrobid) potassium chloride 20 mEq 20 meq PO TID supplement 01/26/24 Unknown History tablet,extended release acetaminophen 500 mg tablet 1,000 mg (2 x 500 mg) PO Q8 #0 tabs 01/30/24 Unknown Rx lidocaine HCl 2 % mucosal solution 10 ml PO Q4H PRN PRN MOUTH 01/30/24 Unknown Rx (Lidocaine Viscous) IRRITATION 1 week #600 mL nicotine 14 mg/24 hr daily 14 mg transdermal DAILY 28 days 01/30/24 Unknown Rx transdermal patch #28 ea nystatin 100,000 unit/mL oral 500,000 unit (5 mL) PO 4X/DAY 7 01/30/24 Unknown Rx suspension days #140 mL insulin aspart U-100 100 unit/mL 18 unit subcut TID blood sugar 02/04/24 Unknown History (3 mL) subcutaneous pen (Novolog FlexPen U-100 Insulin aspart) insulin glargine U-300 conc 300 55 unit subcut DAILY diabetes 02/04/24 02/03/24 10:00 History unit/mL (3 mL) subcutaneous pen (Toujeo Max U-300 SoloStar) [id number] 2 cap PO TID pancreas health 02/04/24 Unknown History 12,000-38,000-60,000 unit capsule,delayed rel (Creon) simethicone 80 mg chewable tablet 160 mg PO TIDPC PRN abdominal 02/04/24 Unknown History distention doxycycline hyclate 100 mg capsule 100 mg PO BID #20 caps 04/29/24 Unknown Rx oxycodone-acetaminophen 5 mg-325 1 tab PO Q8H PRN pain 2 days #4 04/29/24 Unknown Rx mg tablet (Percocet) tabs Allergy/AdvReac Type Severity Reaction Status Date / Time gabapentin (From Neurontin) Allergy Rash Verified 05/06/24 13:38 Penicillins Allergy Rash Verified 05/06/24 13:38 Sulfa (Sulfonamide Allergy Rash Verified 05/06/24 13:38 Antibiotics) Family History Mother Hypertension Hyperlipidemia Father Heart disease Surgical History H/O: History of embolic filter insertion History of appendectomy Hx of cholecystectomy History of hysterectomy Social History household members: none Smoking Status: Current every day smoker tobacco type: e-cigarettes alcohol intake: former substance use type: marijuana ROS ROS ED ROS Narrative Constitutional: Denies any fevers, chills, headaches, lightness, dizziness Cardiovascular: Denies chest pain or palpitations Respiratory: Denies cough shortness of breath Abdomen: Denies abdominal pain nausea vomit diarrhea. Complains of right buttock pain as noted above : Complains of soreness near her vaginal region Neurological: Denies numbness, weakness, tingling Musculoskeletal: Denies back pain Skin: Denies rashes or lesions EXAM Physical Exam Narrative Exam Narrative: General: Patient lying in bed rest comfortably did not appear to be in acute distress Head: Atraumatic, normocephalic Eyes: PERRL bilaterally, EOMI bilateral, no conjunctival injection noted Neck: Soft, supple, trachea midline Cardiovascular: Patient is tachycardic with a regular rhythm no murmurs gallops rubs noted Respiratory: Clear to auscultation bilaterally Abdomen: Soft, nondistended, nontender to palpation, bowel sounds present x 4 Genitourinary: No concern for Blas's gangrene, no Bartholin gland abscesses noted patient does have tenderness to palpation inferior and laterally on the right side to her vaginal region this area is hard and indurated no surrounding erythema no purulent drainage noted Musculoskeletal: No midline tenderness palpation thoracolumbar spine Extremities: +5/5 strength noted in the bilateral upper and lower extremities, no pedal edema neuroexam Neurological: Patient following commands knew that she was at [facility] and the year is 2023 noted on exam Skin: Patient has tenderness to palpation on the inferior region of her buttock region no fluctuance noted no tracking to the rectal area noted Const Vital Signs: 05/06/24 13:38 Temperature 97.1 F L Temperature Source Temporal Pulse Rate 102 H Respiratory Rate 18 Blood Pressure 126/89 H Blood Pressure Mean 101 Pulse Ox 99 Oxygen Delivery Method Room Air [facility] MDM Narrative Medical decision making narrative: Patient is a 48-year-old female who presents to the emerged part with chief complaint of right buttock and vaginal pain. She was on doxycycline has been compliant with this and has worsening symptoms prompting her to come here for the evaluation today. Patient blood work performed here on the differential diagnose includes but not limited to abscess, cellulitis, UTI. Once workup is obtained reviewed she will be reevaluated. Patient CBC reviewed and was largely unremarkable no evidence of leukocytosis white blood count normal at 6.3, hemoglobin 12.1, platelet count was normal at 323. Patient's INR was noted be 1.7 patient is increasing her dose of Coumadin based on her previous INR check already, she is encouraged to have a repeat INR check. Patient sodium was noted be normal 138, potassium normal at 4, creatinine was noted be 1.36 she was encouraged to increase her water intake. Patient lactic acid normal 1.5, AST and ALT were 41 and 56 respectively.Patient's urinalysis did not reveal any evidence infection test was negative. Patient's CT abdomen pelvis with IV contrast was reviewed and showed a medial right gluteal fold inflammatory changes and soft tissue suggesting infectious process no drainable abscess. No large liver. Patient is on doxycycline and she has a few days left of this she was advised to continue the medication as prescribed. She was encouraged to follow-up with her primary care physician which she has scheduled appointment with. She is encouraged to follow-up with general surgery in the outpatient setting for which she was referred to. Patient was encouraged return with worsening symptoms or other concerns. She was encouraged to do sitz bath's and to rotate Motrin and Tylenol around the clock for pain control. She is agreeable with this plan as well as family members at bedside all question concerns answered she is discharged home in stable with all question concerns answered bedside. Lab Data Labs: Laboratory Results - last 24 hr 05/06/24 05/06/24 05/06/24 15:00 15:22 16:05 WBC 6.3 RBC 4.62 Hgb 12.1 Hct 39.6 MCV 85.7 MCH 26.2 L MCHC 30.6 L RDW Std Deviation 47.6 H RDW Coeff of Megan 15.3 H Plt Count 323 MPV 8.7 Immature Gran % (Auto) 0.200 Neut % (Auto) 51.0 Lymph % (Auto) 37.2 Erath % (Auto) 7.9 Eos % (Auto) 2.7 Baso % (Auto) 1.0 Absolute Neuts (auto) 3.2 Absolute Lymphs (auto) 2.34 Nucleated RBC % 0 PT 20.2 H INR 1.7 Sodium 138 Potassium 4.0 Chloride 108 H Carbon Dioxide 21.0 Anion Gap 9 BUN 23 H Creatinine 1.36 H Estim Creat Clear Calc 56.81 Est GFR (MDRD) Af Amer 53 L Est GFR (MDRD) Non-Af 44 L BUN/Creatinine Ratio 16.9 Glucose 149 H Lactic Acid 1.5 Calcium 9.1 Total Bilirubin 0.20 AST 41 H ALT 56 Alkaline Phosphatase 136 H Total Protein 7.6 Albumin 3.6 Globulin 4.0 Albumin/Globulin Ratio 0.9 Urine Color Straw Urine Clarity Clear Urine pH 6.0 Ur Specific Heron 1.015 Urine Protein Negative Urine Glucose (UA) Normal Urine Ketones Negative Urine Occult Blood Negative Urine Nitrite Negative Urine Bilirubin Negative Urine Urobilinogen Normal Ur Leukocyte Esterase 25 H Urine RBC 0 SEEN Urine WBC 0 SEEN Ur Squamous Epith Cells 0-5 SEEN Urine Bacteria 0 SEEN Urine Mucus 0 SEEN Urine Test Negative Radiography Diagnostic Testing: Clinical Impression(s) from Imaging Studies Abdomen/Pelvis CT 05/06/24 14:31 IMPRESSION: (NOT LISTED IN ORDER OF SIGNIFICANCE) Medial right gluteal fold inflammatory changes in the soft tissues suggesting an infectious process. No drainable abscess. Enlarged liver. There are surgical clips in the gallbladder fossa consistent with a prior cholecystectomy. Other findings as above. Electronically Signed: Naga Morton MD at 16:00 EDT Reading Location ID and State: [facility] / [place] , Service support , Discharge Plan Triage Chief Complaint: Wound Check ED Provider: Ander Jeronimo Dx/Rx/DC Orders Clinical Impression: Cellulitis Prescriptions: No Action omeprazole 40 mg capsule,delayed release(DR/EC) 40 mg PO BID glipizide 10 mg tablet extended release 24hr 10 mg PO QDAY enoxaparin 100 mg/mL syringe 100 mg subcut Q12H venlafaxine 75 mg capsule,extended release 24hr 75 mg PO QDAY hydroxyzine HCl 25 mg tablet 25 mg PO BID PRN (Reason: anxiety) Qty: 60 1RF furosemide 40 MG tablet 40 mg PO DAILY valacyclovir [Valtrex] 500 MG tablet 500 mg PO DAILY Linzess 290 mcg capsule 290 mcg PO DAILY methenamine hippurate [Hiprex] 1 gram Tablet 1 g PO QHS venlafaxine [Effexor XR] 150 mg Capsule,Extended Release 24hr 150 mg PO QHS cholecalciferol (vitamin D3) 1,250 mcg (50,000 unit) capsule 50,000 unit PO FR aripiprazole 10 mg tablet 10 mg PO DAILY benztropine 0.5 mg tablet 0.5 mg PO BID divalproex 250 mg tablet,delayed release (DR/EC) 250 mg PO Q12H clonidine HCl 0.2 mg tablet 0.2 mg PO QHS metoprolol succinate 25 mg tablet extended release 24 hr 25 mg PO DAILY promethazine 25 mg tablet 25 mg PO TID PRN (Reason: nausea and vomiting) 7 Days Qty: 21 0RF fenofibrate nanocrystallized 145 mg tablet 145 mg PO QHS melatonin 10 mg tablet 5 mg PO QHS PRN (Reason: sleep) (DME) pen needle, diabetic 31 gauge x 1/3 needle See Rx Instructions .Route Qty: 100 0RF Rx Instructions: As directed potassium chloride 20 mEq tablet extended release 20 meq PO TID nitrofurantoin monohyd/m-cryst [Macrobid] 100 mg capsule 100 mg PO DAILY PRN (Reason: after sex) lactulose 10 gram/15 mL solution 15 ml PO BID PRN (Reason: constipation) nystatin 100,000 unit/mL Suspension 500,000 unit PO 4X/DAY 7 Days Qty: 140 0RF nicotine 14 mg/24 hr Patch 24 Hour 14 mg transdermal DAILY 28 Days Qty: 28 0RF acetaminophen 500 mg Tablet 1,000 mg PO Q8 Qty: 0 0RF lidocaine HCl [Lidocaine Viscous] 2 % Solution 10 ml PO Q4H PRN PRN (Reason: MOUTH IRRITATION) 7 Days Qty: 600 0RF Creon 12,000-38,000 -60,000 unit capsule,delayed release(DR/EC) 2 cap PO TID simethicone 80 mg Tablet,Chewable 160 mg PO TIDPC PRN (Reason: abdominal distention) Rx Instructions: [id number] insulin aspart U-100 [Novolog FlexPen U-100 Insulin] 100 unit/mL (3 mL) insulin pen 18 unit subcut TID insulin glargine U-300 conc [Toujeo Max U-300 SoloStar] 300 unit/mL (3 mL) insulin pen 55 unit subcut DAILY doxycycline hyclate 100 mg capsule 100 mg PO BID Qty: 20 0RF oxycodone-acetaminophen [Percocet] 5-325 mg tablet 1 tab PO Q8H PRN (Reason: pain) 2 Days Qty: 4 0RF doxepin 10 mg capsule 10 mg PO QHS Qty: 30 1RF Primary Care Provider: Rin Rivera NP Referrals: Rin Rivera NP, OPERATING ROOM MANAGER-C [Primary Care Provider] - Nilesh Oconnor MD [Med Staff - Active Staff] - Activity Restrictions/Additional Instructions: Do sitz bath's at home. Keep the area dry and clean. Continue to take your antibiotics as prescribed. Rotate Tylenol [id number] for pain control. Follow-up with primary care physician in the outpatient setting and general surgeon as discussed here. Return with worsening symptoms or other concerns. Print Language: Chinese Disposition Disposition: Home, Self Care
[2024-05-06 16:30] LABS: International Normalized Ratio 1.7; Prothrombin Time (Protime)PT. 20.2 SECONDS (11.7-14.9)
[2024-05-06 17:22] LABS: Internal QC Validated? YES +Cl - CLEAR BKGD
[2024-05-06] MEDS: Ondansetron ODT 4 MG Tablet PO (17:33)
[2024-05-06] MEDS: HYDROcodone Bitartrate/Apap 5/325 Tablet PO (17:33)
[2024-05-06 17:37] VITALS: BP 119/78; PULSE 64; RESP 16; TEMP 36.8; O2SAT 95
[2024-05-06] MEDS: 0.9 % NaCl (Sterile) Posiflush 10 mL IV (17:47)
== END 2024-05-06 17:53 | disposition home or self-care (01) ==
PROVIDERS: Emergency Provider Emergency Medicine; PCP Nurse Practitioner Family; Visit Provider Emergency Medicine
DX: L03.317 Cellulitis of buttock (principal); E11.9 Type 2 diabetes mellitus without complications; Z79.4 Long term (current) use of insulin; E78.5 Hyperlipidemia, unspecified; I10 Essential (primary) hypertension; D68.51 Activated protein C resistance; Z79.01 Long term (current) use of anticoagulants; Z86.73 Personal history of transient ischemic attack (TIA), and cerebral infarction without residual deficits; F41.9 Anxiety disorder, unspecified; F32.A Depression, unspecified; K21.9 Gastro-esophageal reflux disease without esophagitis; Z79.899 Other long term (current) drug therapy; Z79.84 Long term (current) use of oral hypoglycemic drugs; Z90.49 Acquired absence of other specified parts of digestive tract; Z90.710 Acquired absence of both cervix and uterus; F17.290 Nicotine dependence, other tobacco product, uncomplicated
CPT/HCPCS: 74177; 80053; 81001; 81025; 83605; 85025; 85610; 87040; 96361; 96374; 96375; 99283; J7030; Q9967; A4216; J2405

== ENCOUNTER 2024-06-16 11:30 | Inpatient (IN) | payer MEDICARE, SELFPAY ==
[2024-06-16 11:31] VITALS: BP 129/80; PULSE 86; RESP 16; TEMP 36.8; O2SAT 97; BMI 40.0
--- NOTE | 2024-06-16 12:23 | ED.VIS.FEGU ---
HPI HPI - Female History of Present Illness Chief Complaint: Flank Pain Narrative Narrative: Chief complaint and HPI: Back pain and shortness of breath. 48-year-old female presents for evaluation of multiple complaints. Complaints consist of low back pain, dysuria, urinary frequency, and shortness of breath. Patient has a past medical history of factor V [place] with Hx of PE/DVT on warfarin. Denies any missed doses of warfarin. Patient states 3 weeks ago she developed dysuria and urinary frequency. She states she has a history of ESBL. She states that she followed up outpatient for her urinary complaints and was diagnosed with a UTI. She has been on 3 antibiotics including Keflex and ciprofloxacin. Patient states a week ago she developed back pain. She states that she was treated for a muscle spasm but symptoms have not improved. She denies any fever, chills, URI symptoms, chest pain. She endorses diarrhea, abdominal pain, shortness of breath-worse with exertion. Denies any bilateral lower extremity swelling or pain. Denies any recent travel or surgery. History of a hysterectomy. Denies any vaginal complaints. Review of systems: See HPI Medications: As listed on the chart Allergies: As listed on the chart PFSH: Per chart Vital signs: As listed on the chart. Reviewed. Physical exam: Gen: A&O x3, uncomfortable secondary to pain Head: Normocephalic, atraumatic Eyes: No sclera icterus, conjunctiva clear ENT: Moist mucous membranes Neck: Trachea midline, No JVD CV: RRR, no murmurs, no peripheral edema Resp: Lungs CTA BL, no w/r/c GI: Abd soft, non-distended, tender to palpation diffusely, no r/r : No CVA tenderness however is tender to palpation to the lumbar paraspinal musculature on the left and right Musc: Full ROM, no deformity Skin: Warm, dry Neuro: Alert, oriented, grossly intact, sensation intact Psych: Cooperative, appropriate mood and affect [facility] Medical History (Updated 06/16/24 @ 23:[address] Curtis Alonzo, DO) Diabetes Chronic pain Pancreatitis GI bleed Pulmonary embolism Smoker Acute on chronic pancreatitis Pancreatitis Chronic constipation Vitamin D deficiency Depression GERD (gastroesophageal reflux disease) DVT (deep venous thrombosis) Stroke/cerebrovascular accident Epilepsy Substance abuse History of CVA (cerebrovascular accident) Seizure disorder Presence of IVC filter Anxiety History of pulmonary embolus (PE) Factor V Leiden mutation Hyperlipidemia Hypertension Home Medications ?Medication ?Instructions ?Recorded ?Last Taken ?Type furosemide 40 mg tablet 40 mg PO DAILY water pill 09/10/16 06/16/24 History valacyclovir 500 mg tablet 500 mg PO DAILY herpes 10/25/18 06/16/24 History (Valtrex) linaclotide 290 mcg capsule 290 mcg PO DAILY bowels 05/28/21 06/16/24 History (Linzess) methenamine hippurate 1 gram 1 g PO QHS bladder infections 12/03/21 06/16/24 History tablet (Hiprex) venlafaxine 150 mg 150 mg PO DAILY mood 12/03/21 06/16/24 History capsule,extended release 24 hr (Effexor XR) cholecalciferol (vitamin D3) 1,250 50,000 unit PO FR supplement 02/05/23 06/15/24 History mcg (50,000 unit) capsule omeprazole 40 mg capsule,delayed 40 mg PO BID 02/23/23 06/16/24 History release fenofibrate nanocrystallized 145 145 mg PO QHS cholesterol 05/07/23 06/15/24 History mg tablet aripiprazole 10 mg tablet 10 mg PO DAILY MOOD 06/23/23 06/16/24 History benztropine 0.5 mg tablet 0.5 mg PO BID mood 06/23/23 06/16/24 History divalproex 250 mg tablet,delayed 250 mg PO Q12H 06/23/23 06/16/24 History release clonidine HCl 0.2 mg tablet 0.2 mg PO QHS 07/22/23 06/15/24 History metoprolol succinate 25 mg 25 mg PO DAILY heart health 07/22/23 06/16/24 History tablet,extended release 24 hr melatonin 10 mg tablet 5 mg PO QHS PRN sleep 08/17/23 06/15/24 History pen needle, diabetic 31 gauge x #100 ea 08/18/23 Unknown Rx 1/3 promethazine 25 mg tablet 25 mg PO TID PRN nausea and 10/23/23 06/16/24 Rx vomiting 7 days #21 tabs venlafaxine 75 mg capsule,extended 75 mg PO QDAY mood 01/19/24 06/16/24 History release 24 hr lactulose 10 gram/15 mL oral 15 ml PO BID PRN constipation 01/26/24 Unknown History solution nitrofurantoin 100 mg PO DAILY PRN after sex 01/26/24 Unknown History monohydrate/macrocrystals 100 mg capsule (Macrobid) potassium chloride 20 mEq 20 meq PO TID supplement 01/26/24 06/16/24 History tablet,extended release acetaminophen 500 mg tablet 1,000 mg (2 x 500 mg) PO Q8 #0 tabs 01/30/24 06/16/24 Rx insulin aspart U-100 100 unit/mL 18 unit subcut TID blood sugar 02/04/24 06/16/24 History (3 mL) subcutaneous pen (Novolog FlexPen U-100 Insulin aspart) insulin glargine U-300 conc 300 22 unit subcut DAILY diabetes 02/04/24 06/15/24 History unit/mL (3 mL) subcutaneous pen (Toujeo Max U-300 SoloStar) baclofen 10 mg tablet 10 mg PO TID 06/16/24 06/16/24 History clindamycin phosphate 1 % topical 1 applic topical BID 06/16/24 Unknown History gel ropinirole 0.5 mg tablet 0.5 mg PO BID 06/16/24 06/16/24 History tizanidine 4 mg tablet 4 mg PO Q8H PRN PRN muscle spasm 06/16/24 06/16/24 History warfarin 2.5 mg tablet 2.5 mg PO SUMOFRSA 06/16/24 06/16/24 History warfarin 2.5 mg tablet 3.75 mg PO TUWETH 06/16/24 06/14/24 History zinc oxide 15 %-corn starch 81 % ea topical BID AFFECTED AREA 06/16/24 Unknown History topical powder (Caldesene) Allergy/AdvReac Type Severity Reaction Status Date / Time gabapentin (From Neurontin) Allergy Rash Verified 06/16/24 11:45 Penicillins Allergy Rash Verified 06/16/24 11:45 Sulfa (Sulfonamide Allergy Rash Verified 06/16/24 11:45 Antibiotics) topiramate (From Topamax) AdvReac Mild twitching Verified 06/16/24 11:45 of eyelids Family History Mother Hypertension Hyperlipidemia Father Heart disease Surgical History (Reviewed 06/16/24 @ 11:43 by Vane Lawson H/O: History of embolic filter insertion History of appendectomy Hx of cholecystectomy History of hysterectomy Social History household members: none Smoking Status: Current every day smoker tobacco type: e-cigarettes alcohol intake: former substance use type: marijuana EXAM Physical Exam Const Vital Signs: 06/16/24 11:31 06/16/24 13:30 06/16/24 15:00 Temperature 98.3 F Temperature Source Oral Pulse Rate 86 82 70 Respiratory Rate 16 16 17 Blood Pressure 129/80 H 123/74 H 117/70 Blood Pressure Mean 96 90 85 Pulse Ox 97 95 97 Oxygen Delivery Method Room Air Room Air Room Air 06/16/24 17:00 Temperature Temperature Source Pulse Rate 68 Respiratory Rate 16 Blood Pressure 120/77 Blood Pressure Mean 91 Pulse Ox 96 Oxygen Delivery Method Room Air MDM MDM MDM Narrative Medical decision making narrative: 48-year-old female with history of factor V Leiden on warfarin given history of PE/DVT presents for evaluation of multiple complaints. Compliance consists of dysuria, urinary frequency, low back pain, shortness of breath. Patient was just treated for UTI. Patient states her shortness of breath feels similar to her previous PEs. Vitals are stable on presentation except for some mild hypertension. See physical exam findings. Differential diagnosis includes but is not limited to UTI, pyelonephritis, diverticulitis, electrolyte abnormality, pneumonia, PE. Suspect less likely CAD. NS bolus, morphine, Zofran ordered for symptoms. Cardiac/abdominal pain workup ordered including CTA chest given her high risk for PE. CBC without leukocytosis or anemia. INR 1.8. Mildly subtherapeutic. CMP without without PAM. Lipase relatively unremarkable. Patient has elevated alk phos at 135 however this appears to be her baseline. Mild ALT elevation at 72 however has been higher in the past. UA negative for UTI. CT abdomen and pelvis shows no acute process. CTA chest shows 2 nonocclusive right upper lobe PEs. No heart strain. Given patient is on warfarin at home and still developed PE, patient has failed outpatient management. Will start IV heparin. On reevaluation, patient is still having intractable back pain. Given more pain medication. I suspect her back pain is more musculoskeletal in nature as it does not correspond with her PEs in location. Patient was updated on all results and confirmed understanding. Patient was discussed with the hospitalist service Dr. Alonzo. He would like to evaluate the patient before accepting admission given that her PEs are small and does not have hypoxic. After evaluating the patient, recommendation is to transfer to given that the main admission will be for intractable back pain. Patient follows with Dr. Nam at for pain management for her chronic pancreatitis pain. was contacted and patient was discussed with Dr. Larson. Given that pain management will not evaluate the patient in the hospital during admission they do not think that this is an appropriate transfer and would like me to re-speak with our hospitalist service. Dr. Alonzo was made aware of this and accepted admission. Patient confirmed understanding of the plan. EKG: Interpreted by me/EM physician:EKG shows normal sinus rhythm without acute ischemic changes. Heart rate 72. Diagnostic: Interpreted by me/EM physician: Impression: 1. Right upper lobe nonocclusive pulmonary embolisms 2. Intractable lumbar back pain, suspect back strain 3. Mildly subtherapeutic INR, on warfarin Lab Data Labs: Laboratory Results - last 24 hr 06/16/24 06/16/24 06/16/24 11:49 13:07 13:09 WBC 7.5 RBC 4.69 Hgb 12.6 Hct 40.2 MCV 85.7 MCH 26.9 L MCHC 31.3 L RDW Std Deviation 51.1 H RDW Coeff of Megan 16.4 H Plt Count 313 MPV 8.7 Immature Gran % (Auto) 0.800 Neut % (Auto) 65.9 Lymph % (Auto) 24.1 [place] % (Auto) 6.6 Eos % (Auto) 1.5 Baso % (Auto) 1.1 H Absolute Neuts (auto) 4.9 Absolute Lymphs (auto) 1.80 Nucleated RBC % 0 PT 20.9 H INR 1.8 APTT 25.4 Sodium 138 Potassium 3.7 Chloride 105 Carbon Dioxide 25.0 Anion Gap 8 BUN 24 H Creatinine 1.02 Estim Creat Clear Calc 74.83 Est GFR (MDRD) Af Amer 74 Est GFR (MDRD) Non-Af 61 BUN/Creatinine Ratio 23.5 H Glucose 172 H Lactic Acid 1.8 Calcium 9.3 Total Bilirubin 0.30 AST 31 ALT 72 H Alkaline Phosphatase 135 H Troponin I High Sens 5 Total Protein 8.0 Albumin 4.0 Globulin 4.0 Albumin/Globulin Ratio 1.0 Lipase 11 L Urine Color Straw Urine Clarity Clear Urine pH 6.0 Ur Specific [place] 1.020 Urine Protein Negative Urine Glucose (UA) Normal Urine Ketones Negative Urine Occult Blood Negative Urine Nitrite Negative Urine Bilirubin Negative Urine Urobilinogen Normal Ur Leukocyte Esterase Negative Urine RBC 0 SEEN Urine WBC 0-5 SEEN Ur Squamous Epith Cells 0 SEEN Urine Bacteria RARE Urine Mucus 0 SEEN 06/16/24 15:21 WBC RBC Hgb Hct MCV MCH MCHC RDW Std Deviation RDW Coeff of Megan Plt Count MPV Immature Gran % (Auto) Neut % (Auto) Lymph % (Auto) [place] % (Auto) Eos % (Auto) Baso % (Auto) Absolute Neuts (auto) Absolute Lymphs (auto) Nucleated RBC % PT INR APTT Sodium Potassium Chloride Carbon Dioxide Anion Gap BUN Creatinine Estim Creat Clear Calc Est GFR (MDRD) Af Amer Est GFR (MDRD) Non-Af BUN/Creatinine Ratio Glucose Lactic Acid Calcium Total Bilirubin AST ALT Alkaline Phosphatase Troponin I High Sens 5 Total Protein Albumin Globulin Albumin/Globulin Ratio Lipase Urine Color Urine Clarity Urine pH Ur Specific [place] Urine Protein Urine Glucose (UA) Urine Ketones Urine Occult Blood Urine Nitrite Urine Bilirubin Urine Urobilinogen Ur Leukocyte Esterase Urine RBC Urine WBC Ur Squamous Epith Cells Urine Bacteria Urine Mucus Radiography Diagnostic Testing: Clinical Impression(s) from Imaging Studies Chest CTA 06/16/24 12:24 IMPRESSION: 2 peripheral branches of the right pulmonary artery with nonocclusive emboli/pulmonary embolism 1. Single nonocclusive thrombus in the peripheral branch supplying the right upper lobe see image #156/219 series 2. Nonocclusive thin wispy of thrombus adherent to the medial wall of the second peripheral branch supplying the middle one third aspect of the right upper lobe see image #154/219 series 2. No additional peripheral artery emboli. Normal bilateral right and left main pulmonary arteries and normal pulmonary trunk. No demonstrated heart strain or chamber enlargement or pericardial effusion. Electronically Signed: Taurus Acevedo MD at 15:27 EDT Reading Location ID and State: [facility] / [place] , Service support , ADDENDUM: 06/16/24 1539 IMPRESSION: 2 peripheral branches of the right pulmonary artery with nonocclusive emboli/pulmonary embolism 1. Single nonocclusive thrombus in the peripheral branch supplying the right upper lobe see image #156/219 series 2. Nonocclusive thin wispy of thrombus adherent to the medial wall of the second peripheral branch supplying the middle one third aspect of the right upper lobe see image #154/219 series 2. No additional peripheral artery emboli. Normal bilateral right and left main pulmonary arteries and normal pulmonary trunk. No demonstrated heart strain or chamber enlargement or pericardial effusion. N.B. : The above Results were Read Back by Taurus Acevedo MD to Campos Rosales DO, and understanding confirmed on 06/16/2024 15:32:36 (ET). Electronically Signed: Taurus Acevedo MD at 15:27 EDT , ADDENDUM: 06/16/24 1552 IMPRESSION: undefined Abdomen/Pelvis CT 06/16/24 12:25 IMPRESSION: 1. No acute or significant process of the abdomen and pelvis. Electronically Signed: Taurus Acevedo MD at 15:44 EDT , Discharge Plan Disposition Disposition: Acute Care Hospital [facility] Discharge Date/Time: 06/16/24 19:30
--- NOTE | 2024-06-16 12:24 | EKG12_ITS ---
Test Reason : Blood Pressure : / mmHG Vent. Rate : 072 BPM Atrial Rate : 072 BPM P-R Int : 154 ms QRS Dur : 090 ms QT Int : 398 ms P-R-T Axes : 049 -08 033 degrees QTc Int : 435 ms Normal sinus rhythm Normal ECG Confirmed by MERRITT CASTILLO MD ([id number]), assistant editor BECKY ELIAS ([id number]) on 06/19/2024 1:58:34 PM Referred By: Curtis Alonzo Confirmed By:MERRITT CASTILLO MD
--- NOTE | 2024-06-16 12:24 | CT_ITS ---
We are attempting to reach an attending provider to discuss findings. An addendum with communication details will be sent when the communication is complete. STUDY: CTA CHEST REASON FOR EXAM: Female, 48 years old. Shortness of breath. History of PE pt sent in from urgent care for 3 weeks of urinary issues. recent dx of ESBL in the urine. pt now has burning and flank pain on both sides. RADIATION DOSAGE (If Supplied By Facility): CTDIvol = ( 17.02 ) mGy, DLP = ( 1924.26 ) mGycm TECHNIQUE: The examination was performed with the intravenous administration of IV 100mL Isovue-370. Post-processing of the angiographic images was performed, with multiplanar reformation and 3D reconstruction. Individualized dose optimization techniques were used for this CT. COMPARISON: None. FINDINGS: Single nonocclusive thrombus in the peripheral branch supplying the right upper lobe see image #156/219 series 2. Nonocclusive thin wispy of thrombus adherent to the medial wall of the second peripheral branch supplying the middle one third aspect of the right upper lobe see image #154/219 series 2. No additional peripheral artery emboli. Normal bilateral right and left main pulmonary arteries and normal pulmonary trunk. No demonstrated heart strain or chamber enlargement or pericardial effusion. No demonstrated consolidation or pulmonary edema or pleural effusion or pulmonary infarction. Fibrotic scarring is present in the medial aspect of the right middle lobe. No pleural effusion is seen. No lung masses or nodules. No spiculated lesions. Small calcified granuloma seen in the posterior aspect of the right middle lobe. There is atherosclerotic calcification of the aortic arch with tortuosity. There is no demonstrated aortic dissection. Normal heart and pericardium. There are calcifications of the coronary arteries. Normal mediastinum. Normal hilar regions. Normal visualized trachea and bronchi. The lungs are well expanded. Normal chest wall structures. There are degenerative changes of thoracic spine. Included upper abdomen: No acute process. Enlarged fatty liver. CT/CTA Chest W/WO Contrast IMPRESSION: 2 peripheral branches of the right pulmonary artery with nonocclusive emboli/pulmonary embolism 1. Single nonocclusive thrombus in the peripheral branch supplying the right upper lobe see image #156/219 series 2. Nonocclusive thin wispy of thrombus adherent to the medial wall of the second peripheral branch supplying the middle one third aspect of the right upper lobe see image #154/219 series 2. No additional peripheral artery emboli. Normal bilateral right and left main pulmonary arteries and normal pulmonary trunk. No demonstrated heart strain or chamber enlargement or pericardial effusion. Electronically Signed: Taurus Acevedo MD at 15:27 EDT ,
--- NOTE | 2024-06-16 12:25 | CT_ITS ---
STUDY: CT ABDOMEN AND PELVIS WITH CONTRAST REASON FOR EXAM: Female, 48 years old. pt sent in from urgent care for 3 weeks of urinary issues. recent dx of ESBL in the urine. pt now has burning and flank pain on both sides. RADIATION DOSAGE (If Supplied By Facility): CTDIvol = ( 17.02 ) mGy, DLP = ( 1924.26 ) mGycm TECHNIQUE: Transaxial images were obtained from the dome of the diaphragm to the symphysis pubis without oral contrast. ml of 100mL Isovue-370 contrast was administered. Sagittal and coronal images were reconstructed. Individualized dose optimization techniques were used for this CT. COMPARISON: CTA of the chest dated June 16, 2024. CT of abdomen and pelvis dated May 06, 2024 FINDINGS: The visualized lung bases are unremarkable. The visualized portions of the heart are within normal limits. There is decreased attenuation of the liver consistent with steatosis. Redemonstration of small subcapsular cyst at the undersurface of the right lobe of the liver near the gallbladder fossa unchanged from multiple prior studies. No masses or ductal dilatation is present. There are surgical clips in the gallbladder fossa consistent with a prior cholecystectomy. Mild postcholecystectomy CBD dilatation. No radiopaque stone is seen. Normal spleen. There is diffuse atrophy of the pancreas. Normal bilateral adrenal glands. Normal right kidney. Normal left kidney. Normal visualized stomach. Normal small intestine. Normal colon. There is non-visualization of the appendix. No demonstrated free air or free fluid or bowel dilatation. No evidence of bowel obstruction. No demonstrated pneumatosis or portal venous gas. No visualized bowel masses. Normal abdominal aorta. IVC: Redemonstration of several IVC filter is unchanged in position. Normal retroperitoneum. Normal urinary bladder. There is absence of the uterus consistent with a prior hysterectomy. Normal abdominal wall. Normal osseous structures. CT/Abdomen/Pelvis W IV Cont ONLY IMPRESSION: 1. No acute or significant process of the abdomen and pelvis. Electronically Signed: Taurus Acevedo MD at 15:44 EDT ,
--- OUTSIDE RECORDS SUMMARY | 2024-06-16 12:31 | XMS RPT_ITS | CCD ---
Author Organization [facility] Care Team Providers Care Plastic Maker Name Role Phone ARELIS HORTON Unavailable Unavailable ARELIS HORTON Unavailable Unavailable PHYSICIAN, NO FAMILY Unavailable Unavailable Manish Schulz Unavailable Unavailable Manish Schulz Unavailable Unavailable Lam, Sharla DeHass Unavailable Unavailable Manish Sanford Unavailable Unavailable [place], Sharla DeHass Unavailable Unavailable [place], Sharla DeHass Unavailable Unavailable Jad, Lubna A Unavailable Unavailable Jad, Lubna A Unavailable Unavailable Lam, Sharla DeHass Unavailable Unavailable Le, Alphonso Unavailable Unavailable Le, Alphonso Unavailable Unavailable Stk Cnty, Emergency Physicians Unavailable U navailable Lam, Sharla CNM Unavailable Unavailable Tamika, Alec Unavailable Unavailable PROVIDER, UNKNOWN Unavailable Unavailable Ciryak, Christopher Unavailable Unavailable Lona, Sharla Unavailable Unavailable PROVIDER, UNKNOWN Unavailable Unavailable PROVIDER, UNKNOWN Unavailable Unavailable Lona, Sharla Unavailable Unavailable PROVIDER, UNKNOWN Unavailable Unavailable PARUL CARDONA DO Admitting Unavailable PARUL CARDONA DO Attending Unavailable PARUL CARDONA DO Primary Care Unavailable CJ RIVERA Referring Unavailable CJ RIVERA Consulting Unavailable PROVIDER, UNKNOWN Consulting Unavailable CJ CASTAÑEDA Primary Care Physician CJ CASTAÑEDA Primary Care Physician CJ CASTAÑEDA Primary Care Physician Cj Rivera CNP Primary Care Provider CJ CASTAÑEDA Primary Care Physician Cj Rivera CNP Primary Care Provider Nicole MCNULTY Cj Primary Care Provider Lorkellie MCNULTY, [place] Primary Care Provider NicoleCj Estevan Unavailable Terry Kaiser Unavailable Unavailable Colton Hicks Unavailable Tianna Rasmussen Unavailable Unavailable Sharla Zamorano MD Primary Care Provider SHARLA ZAMORANO Primary Care Unavailable LISBETH DAVIES Attending Unavailable [facility] [place] Primary Care Provider Adelina Thompson Unavailable Unavailable Cj Rivera Unavailable Unavailable Unavailable Chastity León Unavailable Unavailable [facility] EMERGENCY PLANNING AND RESPONSE MANAGER-INVESTOR RELATIONS DIRECTOR, [facility] Care Pr ovider [place] EMERGENCY PLANNING AND RESPONSE MANAGER-INVESTOR RELATIONS DIRECTOR, [facility] Pr ovider [place] EMERGENCY PLANNING AND RESPONSE MANAGER-INVESTOR RELATIONS DIRECTOR, [facility] Pr ovider Colton Hicks MD Unavailable BRITTANY KAHN, DR BLAIR Primary Care Physician NANCY ARROYO MD Attending Unavailable [place] EMERGENCY PLANNING AND RESPONSE MANAGER-INVESTOR RELATIONS DIRECTOR, [facility] Pr ovider YOANA WEAVER MD Attending Unavailable LORSON EMERGENCY PLANNING AND RESPONSE MANAGER-INVESTOR RELATIONS DIRECTOR, [facility] Care Unavail able YOANA WEAVER MD Attending Unavailable LORSON EMERGENCY PLANNING AND RESPONSE MANAGER-INVESTOR RELATIONS DIRECTOR, [facility] Unavail able LORSON EMERGENCY PLANNING AND RESPONSE MANAGER-INVESTOR RELATIONS DIRECTOR, [facility] Unavail able DR ALEXEY CHEEK DO Attending Unavailable ADINA WHITT MD Attending Unavailable [place] EMERGENCY PLANNING AND RESPONSE MANAGER-INVESTOR RELATIONS DIRECTOR, [facility] Unavail able LORSON EMERGENCY PLANNING AND RESPONSE MANAGER-INVESTOR RELATIONS DIRECTOR, [facility] Unavail able WIN ALLRED MD Attending Unavailable YOANA WEAVER MD Attending Unavailable [place]SON EMERGENCY PLANNING AND RESPONSE MANAGER-INVESTOR RELATIONS DIRECTOR, [facility] Unavail able BRITTANY KAHN, DR BLAIR Attending Unavailable L[place]SON EMERGENCY PLANNING AND RESPONSE MANAGER-INVESTOR RELATIONS DIRECTOR, [facility] Unavail able SAWYER VASQUEZ, DR MONAE Attending Unavailab le LORSON EMERGENCY PLANNING AND RESPONSE MANAGER-INVESTOR RELATIONS DIRECTOR, CJ Primary Care Unavail able BRITTANY DO, DR BLAIR Attending Unavailable [place]SON EMERGENCY PLANNING AND RESPONSE MANAGER-INVESTOR RELATIONS DIRECTOR, [facility] Care Unavail able BRITTANY DO, DR BLAIR Attending Unavailable L[place]SON EMERGENCY PLANNING AND RESPONSE MANAGER-INVESTOR RELATIONS DIRECTOR, [facility] Care Unavail able L[place]SON EMERGENCY PLANNING AND RESPONSE MANAGER-INVESTOR RELATIONS DIRECTOR, BETHEL Attending Unavail able L[place]SON EMERGENCY PLANNING AND RESPONSE MANAGER-INVESTOR RELATIONS DIRECTOR, [facility] Care Unavail able L[place]SON EMERGENCY PLANNING AND RESPONSE MANAGER-INVESTOR RELATIONS DIRECTOR, BETHEL Attending Unavail able L[place]SON EMERGENCY PLANNING AND RESPONSE MANAGER-INVESTOR RELATIONS DIRECTOR, [facility] Care Unavail able LORSON EMERGENCY PLANNING AND RESPONSE MANAGER-INVESTOR RELATIONS DIRECTOR, [facility] Care Unavail able TORI VASQUEZ FACP, MOLINA Martinez Admitting Unavail able BORIS VASQUEZ, AYUHS Attending Unavailable RADU VASQUEZ, MATT Consulting Unavailable STARR VASQUEZ, DR LINH Purdy Consulting Johan CORRALES MD, DR SCHMID Consulting Unavail able BRITTANY DO, DR BLAIR Attending Unavailable BRITTANY DO, DR BLAIR Primary Care Unavailable BRITTANY DO, DR BLAIR Attending Unavailable L[place]SON EMERGENCY PLANNING AND RESPONSE MANAGER-INVESTOR RELATIONS DIRECTOR, [facility] Care Unavail able BRITTANY DO, DR BLAIR Primary Care Unavailable BRITTANY DO, DR BLAIR Attending Unavailable L[place]SON EMERGENCY PLANNING AND RESPONSE MANAGER-INVESTOR RELATIONS DIRECTOR, [facility] Care Unavail able L[place]SON EMERGENCY PLANNING AND RESPONSE MANAGER-INVESTOR RELATIONS DIRECTOR, BETHEL Attending Unavail able LORSON EMERGENCY PLANNING AND RESPONSE MANAGER-INVESTOR RELATIONS DIRECTOR, [facility] Care Unavail able TORI VASQUEZ FACP, MOLINA Martinez Attending Unavail able TORI VASQUEZ FACP, MOLINA Martinez Consulting Unavail able EBONYDecember Admitting Unavailable [facility], [facility] Provider HERMELINDA PRICE Attending Unavailable PAUL VIRGEN [facility] Care Unavailable COLTON HICKS Attending Unavailable [facility] Unavaila ble SHANTELL ROSSI Referring Unavailable [facility] ble NANCY BENEDICT Admitting Unavailable BRITTANY RUIZ Consulting Unavailable CHASTITY LEÓN Attending Unavailable CHASTITY LEÓN Consulting Unavailable JARET MORA Consulting UnavailLYNN Youssef Referring Unavailable [facility] Unavaila UVALDO Olivera Referring Unavailable LORSON, [facility] Unavaila NANCY Her Admitting Unavailable NANCY AGRAWAL Attending Unavailable UVALDO CHAVEZ Attending Unavailable UVALDO CHAVEZ Referring Unavailable LORSON, [facility] Care Unavaila ble DUMCHESTER YUSUF Admitting Unavailable CHESTER CERVANTES Attending Unavailable LORSON, [facility] Primary Care Unavaila ble NANCY AGRAWAL Referring Unavailable LORSON, [facility] Unavaila ble KURTCOLTON THOMPSON Admitting Unavailable LOUIE, ANA Referring Unavailab le LORSON, [facility] Care Unavaila ble ARIANNA OVALLE Attending Unava ilable COLTON HICKS Attending Unavailable STENTZ, HARVARD Primary Care Unavailable ANGELA MILES Admitting Unavailable CHASTITY LEÓN Attending Unavailable CASHAMCHASTITY T Referring Unavailable STENTZ, PAUL Primary Care Unavailable KURTCOLTON BOSCH Attending Unavailable LORKELLIE, CJ [facility] Unavaila ble LORSON, CJ ZAYAS Primary Care Unavaila ble TABBAA, KUTAIBA Referring Unavailable STENTZ, HARVARD Primary Care Unavailable [place], Ms. Cj [facility] Unav ailable ANGELA MILES Admitting Unavailable Patient, Unavailable Referring Unavailable PANTHAMCHASTITY Attending Unavailable TABBAA, KUTAIBA Referring Unavailable LORSON, CJ [facility] Care Unavaila ble KURT, COLTON T Referring Unavailable LORSON, CJ ZAYAS [facility] Care Unavaila ble TABBAA, KUTAIBA Referring Unavailable LORSON, CJ [facility] Care Unavaila ble TABBAA, KUTAIBA Referring Unavailable LORSON, [facility] Care Unavaila ble TABBAA, KUTAIBA Referring Unavailable LORSON, [facility] Primary Care Unavaila ble MADELIN ALDANA Attending Unavailable STENTZ, HARVARD Primary Care Unavailable TABBAA, KUTAIBA Referring Unavailable LORSON, CJ [facility] Care Unavaila ble TABBAA, KUTAIBA Referring Unavailable LORSON, [facility] Primary Care Unavaila ble TABBAA, KUTAIBA Attending Unavailable LORSON, CJ ZAYAS [facility] Care Unavaila ble TABBAA, KUTAIBA Referring Unavailable LORSON, CJ [facility] Care Unavaila ble TABBAA, KUTAIBA Referring Unavailable LORSON, [facility] Care Unavaila ble TABBAA, KUTAIBA Referring Unavailable STENTZ, HARVARD Primary Care Unavailable TABBAA, KUTAIBA Attending Unavailable STENTZ, PAUL Primary Care Unavailable TABBAA, KUTAIBA Referring Unavailable STENTZ, PAUL Primary Care Unavailable TABBAA, KUTAIBA Referring Unavailable LORSON, CJ [facility] Primary Care Unavaila ble TABBAA, KUTAIBA Referring Unavailable STENTZ, PAUL Primary Care Unavailable STENTZ, PAUL Primary Care Unavailable MARAL GILLESPIE Attending Unavailable TABBAA, KUTAIBA Referring Unavailable STENTZ, PAUL Primary Care Unavailable TABBAA, KUTAIBA Referring Unavailable LORSON, CJ [facility] Primary Care Unavaila ble TABBAA, KUTAIBA Referring Unavailable LORSON, CJ [facility] Primary Care Unavaila ble TABBAA, KUTAIBA Referring Unavailable LORSON, CJ [facility] Primary Care Unavaila ble TABBAA, KUTAIBA Referring Unavailable LORSON, CJ [facility] Primary Care Unavaila ble TABBAA, KUTAIBA Referring Unavailable LORSON, CJ [facility] Primary Care Unavaila ble TABBAA, KUTAIBA Attending Unavailable LORSON, CJ [facility] Primary Care Unavaila ble TABBAA, KUTAIBA Referring Unavailable LORSON, JC [facility] Primary Care Unavaila ble MYRA CAROLINA Admitting Unavailable THOMAE, CRUZITO R Consulting Unavailable TAMANNA, HAFIZ A Attending Unavailable STENTZ, PAUL Primary Care Unavailable STENTZ, PAUL Primary Care Unavailable THOMAE, CRUZITO R Consulting Unavailable TAMANNA, HAFIZ A Admitting Unavailable TAMANNA, HAFIZ A Attending Unavailable EL FATOU, URBANO Consulting Unavailable LORSON, CJ [facility] Primary Care Unavaila ble STENTZ, PAUL Primary Care Unavailable TAMANNA, HAFIZ A Referring Unavailable LORSON, CJ [facility] Primary Care Unavaila ble EL FATOU, URBANO Admitting Unavailable EL FATOU, URBANO Attending Unavailable THOMAE, CRUZITO R Consulting Unavailable STENTZ, PAUL Primary Care Unavailable TAMANNA, HAFIZ A Referring Unavailable LORSON, CJ [facility] Primary Care Unavaila ble TAMANNA, HAFIZ A Referring Unavailable LORSON, CJ [facility] Primary Care Unavaila ble THANG HUNTER Attending Unavailable STENTZ, PAUL Primary Care Unavailable STENTZ, PAUL Primary Care Unavailable STENTZ, PAUL Primary Care Unavailable THEODORE SIMS Attending Unavailable STENTZ, PAUL Primary Care Unavailable CHESTER RODRIGUEZ Attending Unavailable STENTZ, PAUL Primary Care Unavailable STENTZ, PAUL Primary Care Unavailable STENTZ, PAUL Primary Care Unavailable THANG HUNTER Attending Unavailable LAURY ORR Attending Unavailable SELF Referring Unavailable CJ RIVERA Primary Care Unavailable LYNN MAIER Attending Unavailable CJ RIVERA Primary Care Unavailable DOROTHEA JARA Referring Unavailable Allergies Allergy Classification Reported Allergen(s) Allergy Type Date of Onset Reaction(s) Facility Anti-Epileptic Agents (3 sources) gabapentin; Translations: [gabapentin] Drug Allergy 7 Swelling, Rash, Nausea/vomiting , Other [facility] Comment on above: Replaced free text a llergy Replaced free text a llergy Penicillins (antibiotic) (2 sources) Penicillin; Translations: [penicillin] Drug Allergy 3 [facility] Comment on above: Replaced free text a llergy Replaced free text a llergy Sulfonamides (antibiotic) (2 sources) Sulfonamide; Translations: [sulfa drugs] Drug Allergy 4 Hives, Other, [facility] (6 sources) gabapentin; Translations: [GABAPENTIN] Drug Allergy 4 [facility] Repository (6 sources) Penicillins; Translations: [PENICILLINS] Drug allergy (disorder) 4 [facility] Repository (6 sources) Sulfonamides (Antibiotic); Translations: [SULFA (SULFONAMIDE ANTIBIOTICS)] Drug allergy (disorder) 4 [facility] Repository (5 sources) gabapentin; Translations: [Neurontin] Drug Allergy [facility] Repository (20 sources) morphine; Translations: [morphine] Drug Allergy 6 Other: See Comments, Hives, Other [facility] Repository Comment on above: Replaced free text a llergy (4 sources) penicillin; Translations: [penicillin] Drug Allergy [facility] Repository (3 sources) Sulfonamides (Antibiotic); Translations: [sulfa] Propensity to adverse reactions [facility]order[facility] topir[facility]; Translations: [facility]amax] [facility] ([facility] source) Penicillin Drug Allergy [facility] Repository (1 source) Sulfonamides (Antibiotic) Drug allergy (disorder) [facility] Repository (20 sources) gabapentin; Translations: [gabapentin] Drug Allergy 4 Intolerance, Swelling, Rash, Nausea/vomiting [facility] Comment on above: Replaced free text a llergy Replaced free text a llergy (20 sources) Penicillin; Translations: [penicillin] Drug Allergy Rash [facility] Comment on above: Replaced free text a llergy Replaced free text a llergy (20 sources) Sulfonamides (Antibiotic); Translations: [sulfa drugs] Drug allergy [facility] (1 source) Penicillins Drug Allergy 4 Intolerance [facility] Work Phone: (20 sources) Sulfonamides (Antibiotic) Drug Allergy 4 Intolerance, Hives, Unknown, Rash, Other [facility] Work Phone: (20 sources) Penicillins Drug Allergy 4 Intolerance, Rash [facility] Work Phone: (2 sources) Penicillin; Translations: [penicillin] Drug Allergy Rash [facility] Comment on above: Replaced free text a llergy Replaced free text a llergy (3 sources) Sulfonamides (Antibiotic) Rash [facility] (2 sources) Penicillins; Translations: [Penicillins] Allergy to drug (finding) [facility] Work Phone: (4 sources) Other; Translations: [OTHER] Propensity to adverse reactions 3 Rash [facility] Work Phone: (16 sources) topiramate; Translations: [TOPIRAMATE] Drug Allergy 7 Other [facility] Work Phone: Medications Current Medications Medication Drug Class(es) Dates Sig (Normalized) Sig (Original) acetaminophen 325 mg / butalbital 50 mg / caffeine 40 mg oral tablet (20 sources) Barbiturate, Central Nervous System Stimulant, Methylxanthine Start: 01-07-2023 take 1 tablet by mouth every four hours as needed APAP/butalbital/ caffeine 325-50-40 mg oral tablet (Fioricet) Dose = 1 tab(s), Oral, q4h, PRN as needed, in absence of pcp, # 180 tab(s), 0 Refill(s), Pharmacy: [id number], 160, cm, 11/12/22 21:20:00 EST, Height, kg, 11/12/22 21:20:00 EST, Dosing Weight Start Date: 01/07/23 Status: Ordered Start: 10-15-2022 take 1 tablet by naomi th every four hours as needed APAP/butalbital/caffeine 325-50-40 mg or al tablet (Fioricet) Dose = 1 tab(s), Oral, q4h, PRN as needed, # 30 tab(s), 3 Refill(s), Pharmacy: [id number], 160, cm, 10/18/22 12:11:00 EST, Height, kg, 10/19/22 11:32:00 EST, Dosing Weight Start Date: 11/10/22 Status: Ordered Start: 07-21-2022 End: 07-28-2022 take 1 capsule by mouth every four hours as needed acetaminophen/butalbital/caffeine 325 mg-50 mg-40 mg oral capsule 1-2 caps, Oral, q4h, PRN as needed for headache, X 7 day(s), # 30 cap(s), 0 Refill(s), Pharmacy: [facility], 160, cm, 06/17/22 20:28:00 EDT, Height Start Date: 07/21/22 Stop Date: 07/28/22 Status: Ordered Start: 06-17-2022 take 1 capsule by mo ut every four hours as needed acetaminophen/butalbital/caffeine 325 mg-50 mg-40 mg oral capsule 1-2 caps, Oral, q4h, PRN as needed for headache Start Date: 06/17/22 Status: Ordered Start: 04-12-2022 End: 04-17-2022 take 1 tablet by mouth every four hours as needed APAP/butalbital/caffeine 325-50-40 mg or al tablet (Fioricet) Dose = 1 tab(s), Oral, q4h, PRN as needed, X 5 day(s), # 10 tab(s), 0 Refill(s), Pharmacy: [id number], 160, cm, 04/12/22 11:00:00 EDT, Height Start Date: 04/12/22 Stop Date: 04/17/22 Status: Ordered Fioricet CAPS Qu antity: 0 Refills: 0 Ordered: 25-May-2023 DO Active acetaminophen 325 mg / HYDROcodone bitartrate 5 mg oral tablet (5 sources) Opioid Agonist Start: 02-15-2024 take 1 tablet by mouth every six hours as needed for pain acetaminophen-hydrocodone 325 mg-5 mg oral tablet TAKE 1 TABLET BY MOUTH EVERY 6 HOURS NEEDED FOR PAIN for 3 (THREE) days. Start Date: 02/15/24 Status: Ordered Start: 05-19-2023 End: 05-22-2023 take 1 tablet by mouth every four hours as needed for pain Joppa 325- 5 mg oral tablet Dose = 1 tab(s), Oral, q4h, PRN for pain, X 3 day(s), # 12 tab(s), 0 Refill(s), Pancreatitis, 96.5 Start Date: 05/19/23 Stop Date: 05/22/23 Status: Ordered acetaminophen 325 mg / oxyCODONE hydrochloride 5 mg oral tablet (16 sources) Opioid Agonist Start: 02-21-2024 End: 03-02-2024 take 1 tablet by mouth every six hours oxyCODONE-acetaminophen (Percocet) 5-325 mg tablet Take 1 tablet by mouth every 6 hours for moderate pain for up to 3 days 5 tablet 02/21/2024 Active Start: 06-03-2023 End: 06-06-2023 take 1 tablet by mouth every four hours as needed for pain Percocet 5 mg-325 mg oral tablet Dose = 1 tab(s), Oral, q4h, PRN as needed for pain, X 3 day(s), # 10 tab(s), 0 Refill(s), Pancreatitis, 97.7 Start Date: 06/03/23 Stop Date: 06/06/23 Status: Ordered Start: 04-25-2023 End: 05-12-2023 acetaminophen-oxyCODONE 325 mg-5 mg oral tablet Dose = 2 tab(s), Oral, q6h, PRN for pain, 0 Refill(s), 96.4 Start Date: 04/25/23 Status: Ordered Start: 03-11-2023 End: 03-14-2023 take 1 tablet by mouth every six hours as needed for pain Percocet 5 mg-325 mg oral tablet Dose = 1 tab(s), Oral, q6h, PRN for pain, X 3 day(s), # 12 tab(s), 0 Refill(s), Pharmacy: [id number], Pancreatitis, 160, cm, 03/07/23 23:09:00 EDT, Height, 98.1 Start Date: 03/11/23 Stop Date: 03/14/23 Status: Ordered albuterol 0.83 mg/ml inhalation solution (10 sources) beta2-Adrenergic Agonist Start: 12-07-2023 albut edwardo 2.5 mg /3 mL (0.083 %) nebulizer solution 2.5 mg Start: 09-01-2016 albuterol 90 m cg/actuation inhaler Inhale 2 puffs into the lungs every 6 hours as needed for Wheezing or Shortness of Breath (Space out to every 6 hours as symptoms improve) Space out to every 6 hours as symptoms improve. 0 09/01/2016 Active ALPRAZolam 1 mg oral tablet (3 sources) Benzodiazepine take 1 tablet by mouth twice daily ALPRAZolam (Xanax) 1 mg tablet Take 1 tablet (1 mg) by mouth 2 times a day. 0 Active alteplase (Cathflo Activase) injection 1 mg (2 sources) Start: 12-05-2023 alteplase (Cathflo Activase) injection 1 mg Start: 12-05-2023 alteplase (Cat hflo Activase) injection 1 mg alteplase (Cathflo Activase) injection 2 mg (1 source) Start: 12-06-2023 alteplase (Cat hflo Activase) injection 2 mg aluminum hydroxide 40 mg/ml / magnesium hydroxide 40 mg/ml / simethicone 4 mg/ml oral suspension (1 source) Start: 03-01-2024 take 10 mL by mouth four times daily as needed for gastroesophageal reflux disease 10 mL, oral, 4 times daily PRN, indigestion, heartburn, Starting on Celeste 03/01/24 at 1805 amylase 38545 unt / lipase 51912 unt / protease 73216 unt delayed release oral capsule (20 sources) Start: 12-05-2023 2 capsule, ora l, 3 times daily with meals, First dose on 12/05/23 at 1700 Administer whole with food and sufficient fluid; do not crush or chew. Contents may be sprinkled on soft acidic food (such as applesauce or bananas) if swallowed immediately without chewing. If ordered per G-tube, thoroughly mix capsule contents into acidic food (applesauce or bananas). Stir gently; do not crush spheres. Within 15 minutes of mixing, give via a 35 mL slip-tip syringe into a 16F or larger diameter tube, then flush with ~10 mL of water. Start: 11-11-2023 2 capsule, ora l, 3 times daily with meals, First dose on Tue11/11/23 at 0800 Administer whole with food and sufficient fluid; do not crush or chew. Contents may be sprinkled on soft acidic food (such as applesauce or bananas) if swallowed immediately without chewing. If ordered per G-tube, thoroughly mix capsule contents into acidic food (applesauce or bananas). Stir gently; do not crush spheres. Within 15 minutes of mixing, give via a 35 mL slip-tip syringe into a 16F or larger diameter tube, then flush with ~10 mL of water. Start: 08-03-2023 End: 12-01-2023 take 2 tablets by mouth three times daily pancrelipase, Drn-Gyza-Puap, (Viokace) 20,880-78,300- 78,300 unit tablet Indications: Chronic pancreatitis, unspecified pancreatitis type (CMS/HCC) Take 2 tablets by mouth 3 times a day. 180 tablet 3 08/03/2023 12/01/2023 Active Start: 06-18-2023 pancrelipase ( Rkh-Ilfu-Lzqk) (Creon) 12,000-38,000 -60,000 unit per capsule 3 capsule Start: 04-18-2023 take 1 capsule by [facility] four times daily Creon 36,000 units oral delayed release capsule 1 cap(s), Oral, QID, # 120 cap(s), 0 Refill(s) Start Date: 04/18/23 Status: Ordered Start: 04-09-2023 End: 10-11-2024 take 2 capsules by mouth three times daily at mealtime pancrelipase, Iib-Qsnk-Poel, (Creon) 12,000-38,000 -60,000 unit capsule Indications: Chronic pancreatitis, unspecified pancreatitis type (Multi) Take 2 capsules by mouth 3 times a day with meals. 180 capsule 11 10/12/2023 10/11/2024 Active ARIPiprazole 5 mg oral tablet (20 sources) Atypical Antipsychotic Start: 02-28-2024 take 10 mg by mouth once daily 10 mg, oral, Daily, First dose on Tue02/28/24 at 0900 Start: 06-06-2023 End: 05-31-2024 ARIPiprazole 10 mg oral tabl et Dose : 10 mg = 1 tab(s), Oral, qDay, # 90 tab(s), 3 Refill(s), Pharmacy: [id number], 160, cm, 04/01/23 14:05:00 EDT, Height, kg, 06/03/23 15:06:00 EDT, Dosing Weight Start Date: 06/06/23 Stop Date: 05/31/24 Status: Ordered Start: 05-09-2023 ARIPiprazole 1 0 mg oral tablet Dose : 10 mg = 1 tab(s), Oral, qDay, # 90 tab(s), 0 Refill(s) Start Date: 05/09/23 Status: Ordered Start: 07-26-2022 End: 11-23-2022 Abilify 10 mg oral tablet Do se : 10 mg = 1 tab(s), Oral, qDay, # 30 tab(s), 3 Refill(s), Pharmacy: [facility], 160, cm, 07/26/22 14:12:00 EST, Height Start Date: 07/26/22 Stop Date: 11/23/22 Status: Ordered Start: 05-26-2021 End: 11-22-2021 ARIPiprazole 10 mg oral tabl et Dose : 10 mg = 1 tab(s), Oral, BID, # 180 tab(s), 1 Refill(s), Pharmacy: [facility], 160, cm, 05/26/21 13:15:00 EDT, Height, kg, 05/26/21 13:15:00 EDT, Dosing Weight Start Date: 05/26/21 Stop Date: 11/22/21 Status: Ordered ascorbic acid 500 mg oral tablet (20 sources) Vitamin C Start: 02-28-2024 take 1000 mg by mouth once daily 1,000 mg, oral, Nightly, First dose on Tue02/28/24 at 2100 Start: 12-05-2023 take 1000 mg by mout h once daily 1,000 mg, oral, Nightly, First dose on Tue12/05/23 at 2100 Start: 07-06-2021 take 1 tablet by naomi th once daily at bedtime Ascorbic Acid (VITAMIN C) 1,000 mg tablet Take 1 tablet by mouth daily at bedtime. 30 tablet 07/06/2021 Active take 1 tablet by naomi th once daily ascorbic acid 1000 mg oral tablet ; 1 tab(s) orally once a day Quantity: 0 Refills: 0 Ordered: 03-Apr-2023 Selena Coombs Generic Substitution Allowed Comment on above: Take 1 tablet by naomi th daily at bedtime. atorvastatin 40 mg oral tablet (3 sources) HMG-CoA Reductase Inhibitor take 1 tablet by mouth once daily atorvastatin (Lipitor) 40 mg tablet Take 1 tablet (40 mg) by mouth once daily. 0 Active baclofen 10 mg oral tablet (2 sources) gamma-Aminobutyric Acid-ergic Agonist Start: 06-08-20 take 1 tablet by mouth three times daily baclofen 10 mg tablet Take 1 tablet by mouth three times a day. 60 tablet 06/08/2024 Active benzocaine 15 mg / menthol 3.6 mg oral lozenge (2 sources) Standardized Chemical Allergen Start: 05-16-20 menthol-benzocaine 3.6 mg-15 mg mucous membrane lozenge ; mucous membrane Quantity: 0 Refills: 0 Ordered: 16-May-2023 Adelina Thompson Start: 16-May-2023 Generic Substitution Allowed benzonatate 100 mg oral capsule (1 source) Non-narcotic Antitussive Start: 05-16-20 take 1 capsule by mouth three times daily benzonatate 100 mg oral capsule ; 1 cap(s) orally 3 times a day Quantity: 0 Refills: 0 Ordered: 16-May-2023 Adelina Thompson Start: 16-May-2023 Generic Substitution Allowed benztropine mesylate 1 mg oral tablet (20 sources) Anticholinergic, Antihistamine Start: 02-28-20 End: 02-29-20 take 0.5 mg by mouth twice daily 0.5 mg, oral, 2 times daily, First dose (after last modification) on Tue02/29/24 at 1000 Start: 11-11-2023 take 1 dose by mouth twice daily Cogentin Dose : 0.5 mg =, Oral, BID, 0 Refill(s) Start Date: 02/15/24 Status: Ordered Start: 05-20-2023 benztropine 0. 5 mg oral tablet Dose : 0.5 mg = 1 tab(s), Oral, BID, Take 1 tab TWICE A DAY As Needed for eps, # 60 tab(s), 0 Refill(s), Pharmacy: [id number], 160, cm, 04/01/23 14:05:00 EDT, Height, kg, 05/09/23 8:17:00 EDT, Dosing Weight Start Date: 05/20/23 Status: Ordered Cogentin 1 MG TA BS TAKE 1 TABLET TWICE DAILY. Quantity: 0 Refills: 0 Ordered: 25-May-2023 DO Active bismuth subsalicylate 17.5 mg/ml oral suspension (2 sources) Bismuth Start: 10-18-2022 End: 11-01-2022 take 1 dose by mouth once daily bismuth subsalicylate 527 mg/30 mL oral suspension Dose : 1,054 mg = 60 mL, Oral, QID, PRN for dyspepsia, not to exceed 240 mL/day, X 14 day(s), # 240 mL, 0 Refill(s), 11/01/22 18:59:00 EST Start Date: 10/18/22 Stop Date: 11/01/22 Status: Ordered Blood Glucose Test Machine (4 sources) Start: 08-16-2023 Blood Glucose Test Machine See Instructions, Brand as covered Diagnosis E11.9 Patient is not insulin independent Check blood sugars daily, # 1 EA, 0 Refill(s), Pharmacy: [id number], 160, cm, 08/09/23 13:03:00 EST, Height, 99.3, kg, 08/09/23 13:03:00 EST, Dosing Weight Start Date: 08/16/23 Status: Ordered 1.5 ml buprenorphine 200 mg/ml prefilled syringe (7 sources) Partial Opioid Agonist Start: 09-23-2021 inject 1 dose by intramuscular injection every month Sublocade 300 mg/1.5 mL subcutaneous solution, extended release Dose : 300 mg =, Intramuscular, qmonth, 0 Refill(s) Start Date: 09/23/21 Status: Ordered Start: 09-09-2021 Sublocade 300 mg/1.5 mL subcutaneous solution, extended release 0 Refill(s) Start Date: 09/09/21 Status: Ordered 12 hr buPROPion hydrochloride 150 mg extended release oral tablet (6 sources) Aminoketone Start: 07-21-2022 take 1 tablet by mouth twice daily buPROPion SR (Wellbutrin SR) 150 mg 12 hr tablet Take 1 tablet (150 mg) by mouth 2 times a day. 0 07/21/2022 Active take 1 tablet by naomi th once daily before mealtime buPROPion XL (Wellbutrin XL) 150 mg 24 h r tablet Take 1 tablet (150 mg) by mouth once daily in the morning. Take before meals. 0 Active buPROPion 150 mg/12 hours (SR) oral tablet, extended release (5 sources) Start: 06-17-2022 take 1 tablet by mouth every hour, then take 1 tablet by mouth twice daily buPROPion 150 mg/12 hours (SR) oral tablet, extended release Dose : 150 mg = 1 tab(s), Oral, BID Start Date: 06/17/22 Status: Ordered busPIRone hydrochloride 10 mg oral tablet (8 sources) Start: 07-26-2022 End: 11-23-2022 take 1 tablet by mouth three times daily busPIRone (Buspar) 10 mg tablet Take 1 tablet (10 mg) by mouth 3 times a day. 0 07/26/2022 Active Start: 06-17-2022 busPIRone 10 m g oral tablet Dose : 10 mg = 1 tab(s), Oral, TID Start Date: 06/17/22 Status: Ordered calcium carbonate 500 mg chewable tablet (6 sources) Start: 03-01-2024 take 500 mg by mouth once daily 500 mg, oral, Daily, First dose on Celeste 03/01/24 at 0900 Start: 02-29-2024 take 500 mg by mouth three times daily as needed for gastroesophageal reflux disease 500 mg, oral, 3 times daily PRN, indigestion, heartburn, Starting on Tue02/29/24 at 2315 Start: 12-08-2023 take 1 tablet by naomi th every twenty-four hours as needed calcium carbonate (Tums) chewable tablet 500 mg Start: 07-06-2021 End: 01-02-2022 calcium carbonate 1250 mg (5 00 mg elemental calcium) oral tablet Dose : 1,250 mg = 1 tab(s), Oral, BID, # 180 tab(s), 1 Refill(s), Pharmacy: [facility], 160, cm, 07/02/21 9:50:00 EDT, Height, kg, 07/02/21 10:03:00 EDT, Dosing Weight Start Date: 07/06/21 Stop Date: 01/02/22 Status: Ordered cephalexin 500 mg oral tablet (2 sources) Cephalosporin Antibacterial Start: 05-19-2023 End: 05-26-2023 cephalexin 500 mg oral tablet Dose : 500 mg = 1 tab(s), Oral, QID, X 7 day(s), # 28 tab(s), 0 Refill(s), 05/26/23 8:04:00 PM EDT, 96.5 Start Date: 05/19/23 Stop Date: 05/26/23 Status: Ordered cholecalciferol 1.25 mg oral capsule (20 sources) Vitamin D Start: 01-02-2024 End: 02-09-2025 cholecalciferol 1250 mcg (50,000 intl units) oral capsule Dose : 1,250 mcg = 1 cap(s), Oral, Tuesday, # 13 cap(s), 3 Refill(s), Pharmacy: [facility], 163, cm, 02/15/24 10:25:00 EDT, Height, kg, 02/15/24 10:25:00 EDT, Dosing Weight Start Date: 02/15/24 Stop Date: 02/09/25 Status: Ordered Start: 01-24-2023 End: 01-19-2024 cholecalciferol 1250 mcg (50 ,000 intl units) oral capsule Dose : 1,250 mcg = 1 cap(s), Oral, Tuesday, # 13 cap(s), 3 Refill(s), Pharmacy: [facility], 160, cm, 01/24/23 14:30:00 EDT, Height, kg, 01/24/23 14:30:00 EDT, Dosing Weight Start Date: 01/24/23 Stop Date: 01/19/24 Status: Ordered Start: 01-24-2023 End: 01-19-2024 cholecalciferol (Vitamin D-3 ) 1,250 mcg (50,000 unit) capsule Dose : 1,250 mcg = 1 cap(s), Oral, Tuesday, # 13 cap(s), 3 Refill(s), Pharmacy: [facility], 160, cm, 01/24/23 14:30:00 EDT, Height, kg, 01/24/23 14:30:00 EDT, Dosing Weight 0 01/24/2023 01/19/2024 Active Start: 06-17-2022 cholecalcifero l 1250 mcg (50,000 intl units) oral capsule Dose : 1,250 mcg = 1 cap(s), Oral, Tuesday Start Date: 06/17/22 Status: Ordered Start: 04-12-2022 cholecalcifero l 1250 mcg (50,000 intl units) oral capsule Dose : 1,250 mcg = 1 cap(s), Oral, qWeek, # 12 cap(s), 0 Refill(s), Pharmacy: [id number], 160, cm, 04/12/22 11:00:00 EDT, Height, kg, 04/12/22 11:00:00 EDT, Dosing Weight Start Date: 04/12/22 Status: Ordered Start: 06-23-2021 cholecalcifero l 1250 mcg (50,000 intl units) oral capsule Dose : 1,250 mcg = 1 cap(s), Oral, qWeek, # 12 cap(s), 3 Refill(s), Pharmacy: [facility], 161, cm, 06/22/21 14:39:00 EDT, Height, kg, 06/22/21 14:39:00 EDT, Dosing Weight Start Date: 06/23/21 Status: Ordered Start: 06-23-2021 cholecalcifero l 1250 mcg (50,000 intl units) oral capsule Dose : 1,250 mcg = 1 cap(s), Oral, qWeek, # 12 cap(s), 3 Refill(s), Pharmacy: [facility], 161, cm, 06/22/21 14:39:00 EDT, Height, kg, 06/22/21 14:39:00 EDT, Dosing Weight Start Date: 06/23/21 Status: Ordered take 1 capsule by [facility] every week cholecalciferol (Vitamin D-3) 50,000 unit capsule Take 1 capsule (50,000 Units) by mouth 1 (one) time per week. On Fridays Active [facility] Vitamin D3 1 000 UNIT CAPS TAKE DIRECTED. Quantity: 0 Refills: 0 Ordered: 25-May-2023 DO Active clonazePAM 0.5 mg oral tablet (20 sources) Benzodiazepine Start: 02-28-2024 End: 02-29-2024 take 0.25 mg by mouth once daily 0.25 mg, oral, Nightly, First dose on Tue02/28/24 at 2100 Start: 07-01-2023 clonazePAM (KL ONOPIN) 0.5 mg tablet Indications: Focal epilepsy (HCC) Take one tablet as needed for prolonged convulsive seizure or cluster or 3 or more seizures in 24 hours. Do not exceed more than 1 tablet per day. 10 tablets per 30 days. 10 tablet 07/01/2023 Active Start: 03-08-2022 End: 05-28-2023 clonazePAM (KlonoPIN) 0.5 mg tablet Take one tablet as needed for prolonged convulsive seizure or cluster or 3 or more seizures in 24 hours. Do not exceed more than 1 tablet per day. 10 tablets per 30 days. 0 06/17/2022 Active Start: 04-28-2021 End: 01-21-2022 KlonoPIN 0.5 mg oral tablet Dose : 0.5 mg = 1 tab(s), Oral, PRN Other (see order comments), 0 Refill(s), 88.6 Start Date: 04/28/21 Status: Ordered take 1 tablet by naomi once daily at bedtime clonazePAM (KlonoPIN) 1 mg tablet Take 1 tablet (1 mg) by mouth once daily at bedtime. 0 Active Comment on above: Take one tablet as n eeded for prolonged convulsive seizure or cluster or 3 or more seizures in 24 hours. Do not exceed more than 1 tablet per day. 10 tablets per 30 days. cloNIDine hydrochloride 0.1 mg oral tablet (20 sources) Central alpha-2 Adrenergic Agonist Start: 02-28-2024 take 0.2 mg by mouth once daily 0.2 mg, oral, Daily, First dose on Tue02/28/24 at 0900 Start: 01-02-2024 End: 06-30-2024 cloNIDine 0.2 mg oral tablet Dose : 0.2 mg = 1 tab(s), Oral, qDay, # 90 tab(s), 1 Refill(s), Pharmacy: [facility], 160, cm, 01/02/24 14:52:00 EDT, Height, kg, 01/02/24 14:52:00 EDT, Dosing Weight Start Date: 01/02/24 Stop Date: 06/30/24 Status: Ordered Start: 06-18-2023 cloNIDine (Cat apres) tablet 0.2 mg Start: 06-18-2023 End: 06-18-2023 cloNIDine (Catapres) 0.1 mg tablet - [employer] Override Pull Start: 01-24-2023 End: 07-23-2023 cloNIDine 0.2 mg oral tablet Dose : 0.2 mg = 1 tab(s), Oral, qDay, # 90 tab(s), 1 Refill(s), Pharmacy: [facility], 160, cm, 01/24/23 14:30:00 EDT, Height, kg, 01/24/23 14:30:00 EDT, Dosing Weight Start Date: 01/24/23 Stop Date: 07/23/23 Status: Ordered Start: 01-06-2022 End: 10-04-2022 cloNIDine 0.2 mg oral tablet Dose : 0.2 mg = 1 tab(s), Oral, BID Start Date: 06/17/22 Status: Ordered Start: 06-25-2021 End: 08-24-2021 cloNIDine 0.2 mg oral tablet Dose : 0.2 mg = 1 tab(s), Oral, BID, # 60 tab(s), 1 Refill(s), Pharmacy: [facility], 161, cm, 06/22/21 14:39:00 EDT, Height, kg, 06/22/21 14:39:00 EDT, Dosing Weight Start Date: 06/25/21 Stop Date: 08/24/21 Status: Ordered cyclobenzaprine hydrochloride 5 mg oral tablet (4 sources) Muscle Relaxant Start: 04-28-2023 End: 04-27-2024 take 1 tablet by mouth three times daily as needed cyclobenzaprine (Flexeril) 5 mg tablet TAKE 1 TABLET BY MOUTH THREE TIMES A DAY NEEDED FOR RESTLESS LEG SYNDROME OR EXTRAPYRAMIDAL 30 tablet 0 04/28/2023 04/27/2024 Active Dextromethorphan (3 sources) Uncompetitive J-[id number]-[id number]-asparta te Receptor Antagonist, Sigma-1 Agonist Start: 09-15-2023 take 1 dose by mouth every four hours as needed dextromethorphan 10 mg/5 mL oral syrup Dose : 10 mg = 5 mL, Oral, q4h, PRN as needed for cough, # 240 mL, 0 Refill(s), Pharmacy: [id number], 160, cm, 09/14/23 9:08:00 EST, Height, kg, 09/14/23 9:08:00 EST, Dosing Weight Start Date: 09/15/23 Status: Ordered diphenhydrAMINE hydrochloride 25 mg oral capsule (7 sources) Histamine-1 Receptor Antagonist Start: 02-28-2024 take 1 capsule by mouth every four hours as needed 25 mg, oral, Every 4 hours PRN, itching, Starting on Tue02/28/24 at 1612 Start: 11-10-2023 End: 11-10-2023 take 1 capsule by mouth every six hours as needed diphenhydrAMINE (BENADryl) capsule 25 mg Start: 06-18-2023 take 1 capsule by mo uth every four hours as needed diphenhydrAMINE (BENADryl) capsule 25 mg diphenhydrAMINE 25 mg oral tablet ; 3 tab(s) orally once a day (at bedtime), As Needed - for allergy symptoms Quantity: 0 Refills: 0 Ordered: 12-May-2023 Alicia Feliciano Generic Substitution Allowed take 1 tablet by naomi every six hours as needed diphenhydrAMINE 25 mg oral tablet ; 1 tab(s) orally every 6 hours, As Needed - for allergy symptoms Quantity: 0 Refills: 0 Ordered: 26-Apr-2023 MaryAnn Marie Generic Substitution Allowed diphenhydramine/Maalox/lidoc tate (Magic Mouthwash) - Compounded - Outpatient (3 sources) Start: 02-21-2024 take 10 mL by mouth three times daily as needed for pain diphenhydramine/Maalox/lidocaine (Magic Mouthwash) - Compounded - Outpatient Indications: Cold sore Swish and spit 10 mL 3 times a day as needed (For mouth pain). 10 mL 1 02/21/2024 Active docosanol 100 mg/ml topical cream (3 sources) Start: 02-21-2024 docosanol cream (Abreva) 10 % cream cream Indications: Cold sore Apply 1 Application topically 5 times a day. 4 g 02/21/2024 Active doxepin hydrochloride 10 mg oral capsule (8 sources) T r i c y c l i c A n t i d e p r e s s a n t Start: 02-15-2024 take 10 mg by mouth once daily 10 mg, oral, Nightly, First dose on Tue02/28/24 at 2100 take 1 capsule by mo [facility] once daily at bedtime doxepin (SINEquan) 50 mg capsule Take 1 capsule (50 mg) by mouth once daily at bedtime. 0 Active fenofibrate 145 mg oral tablet (20 sources) Peroxisome Proliferator Receptor alpha Agonist Start: 12-05-2023 take 160 mg by mouth once daily 160 mg, oral, Daily, First dose on Tue12/05/23 at 1430 Start: 11-11-2023 take 160 mg by mouth once carmelina y 160 mg, oral, Daily, First dose on Tue11/11/23 at 1300 Start: 06-18-2023 fenofibrate (T riglide) tablet 160 mg Start: 02-02-2023 fenofibrate (T ricor) 145 mg tablet 1 tablet (145 mg). 02/02/2023 Active fluconazole 150 mg oral tablet (5 sources) Azole Antifungal Start: 05-31-2024 End: 06-04-2024 fluconazole (DIFLUCAN) 150 mg tablet Take 1 tablet by mouth every 72 hours for 2 doses. 2 tablet 05/31/2024 06/04/2024 Active Start: 05-30-2023 fluconazole (D iflucan) 150 mg tablet TAKE 1 TABLET BY MOUTH ONCE THEN REPEAT IN 1 (ONE) WEEK 0 05/30/2023 Active Start: 05-30-2023 End: 06-06-2023 fluconazole 150 mg oral tabl et See Instructions, 1 tab(s) Oral then repeat in 1 week., # 2 tab(s), 0 Refill(s), 06/06/23 1:20:00 PM EDT, Pharmacy: [id number], 160, cm, 04/01/23 14:05:00 EDT, Height, 96.5, kg, 05/09/23 8:17:00 EDT, Dosing Weight Start Date: 05/30/23 Stop Date: 06/06/23 Status: Ordered fluticasone propionate 0.05 mg/actuat metered dose nasal spray (3 sources) Corticosteroid Start: 09-01-2016 take 2 spray(s) nasal route once daily fluticasone (Flonase) 50 mcg/actuation nasal spray Administer 2 sprays into each nostril once daily. 0 09/01/2016 Active furosemide 40 mg oral tablet (20 sources) Loop Diuretic Start: 04-15-2021 End: 06-30-2024 take 40 mg by mouth once daily 40 mg, oral, Daily, First dose on Tue02/28/24 at 0900 take 0.5 tablet by mouth once da leah furosemide (Lasix) 80 mg tablet Take 0.5 tablets (40 mg) by mouth once daily. Active Comment on above: Take 40 mg by mouth once daily. glipiZIDE er 10 mg 24 hr extended release oral tablet (16 sources) Sulfonylurea Start: 10-24-2023 glipiZIDE 10 mg oral tablet, extended release Dose : 10 mg = 1 tab(s), Oral, qDay, # 30 tab(s), 3 Refill(s), Pharmacy: [facility], 163, cm, 02/15/24 10:25:00 EDT, Height, kg, 02/15/24 10:25:00 EDT, Dosing Weight Start Date: 02/15/24 Status: Ordered Start: 10-17-2023 glipiZIDE 5 mg oral tablet, extended release Dose : 5 mg = 1 tab(s), Oral, qDay, # 30 tab(s), 3 Refill(s), Pharmacy: [facility], 160, cm, 09/14/23 9:08:00 EST, Height, kg, 09/14/23 9:08:00 EST, Dosing Weight Start Date: 10/17/23 Status: Ordered glucagon (rdna) 1 mg injecti on (3 sources) Antihypoglycemic Agent Start: 02-28-2024 Start: 11-10-2023 glucagon (Gluc agen) injection 1 mg 50 ml glucose 500 mg/ml pref illed syringe (4 sources) Start: 02-28-2024 Start: 11-10-2023 dextrose 50 % injection 25 g Start: 11-10-2023 dextrose 10 % in water (D10W) infusion 1 ml hydrALAZINE hydrochloride 20 mg/ml injection (1 source) Arteriolar Vasodilator Start: 12-07-2023 hydrALAZINE (Apresoline) injection 5 mg hydroCHLOROthiazide 25 mg oral tablet (20 sources) Thiazide Diuretic Start: 09-23-2021 End: 06-18-2023 hydroCHLOROthiazide 25 mg oral tablet Dose : 25 mg = 1 tab(s), Oral, qDay, # 90 tab(s), 2 Refill(s), Pharmacy: [facility], 160, cm, 01/25/23 10:30:00 EDT, Height Start Date: 02/01/23 Status: Ordered take 1 capsule by mouth twice da leah Microzide CAPS 25 mg bid daily po Quantity: 0 Refills: 0 Ordered: 25-May-2023 DO Active hydrocortisone/neomycin/poly myxin B 1%-0.35%-10,000 units/mL otic suspension (2 sources) Start: 07-31-2021 End: 08-07-2021 hydrocortisone/neomycin/poly myxin B 1%-0.35%-10,000 units/mL otic suspension Dose = 4 drop(s), Ear, right, QID, X 7 day(s), # 10 mL, 0 Refill(s), Otitis externa Start Date: 07/31/21 Stop Date: 08/07/21 Status: Ordered icosapent ethyl 1000 mg oral capsule (3 sources) Start: 01-28-2023 Vascepa 1 gram capsule insulin aspart protamine, hu man 70 unt/ml / insulin aspart, human 30 unt/ml injectable suspension (11 sources) Insul in [place] g insulin asp prt-insu david aspart (NovoLOG Mix 70-30 U-100 Insuln) 100 unit/mL (70-30) injection Inject 18 Units under the skin 3 times a day before meals. Take as directed per insulin instructions. Before meals Active insulin asp prt- insulin aspart (NovoLOG Mix 70-30 U-100 Insuln) 100 unit/mL (70-30) injection Inject 10 Units under the skin. Take as directed per insulin instructions. Before meals Active 3 ml insulin aspart, human 100 unt/ml pen injector (6 sources) Insulin Analog Start: 02-15-2024 NovoLOG FlexPe n 100 units/mL injectable solution Dose : 18 unit(s) =, Subcutaneous, TIDAC, # 15 mL, 1 Refill(s), other reason (Rx) Start Date: 02/15/24 Status: Ordered Start: 11-04-2023 NovoLOG FlexPe n 100 units/mL injectable solution Dose : 15 unit(s) =, Subcutaneous, TIDAC, # 15 mL, 1 Refill(s), Pharmacy: [facility], 160, cm, 10/17/23 15:51:00 EST, Height, kg, 10/17/23 15:51:00 EST, Dosing Weight Start Date: 11/04/23 Status: Ordered Start: 09-30-2023 NovoLOG FlexPe n 100 units/mL injectable solution Dose : 5 unit(s) =, Subcutaneous, TIDAC, # 1 EA, 1 Refill(s), Pharmacy: [facility], 160, cm, 09/14/23 9:08:00 EST, Height, kg, 09/14/23 9:08:00 EST, Dosing Weight Start Date: 09/30/23 Status: Ordered Start: 09-30-2023 NOVOLOG FLEXPE N U-100 INSULIN 100 unit/mL (3 mL) INJECT 18 UNITS SUBCUTANEOUSLY THREE TIMES DAILY BEFORE MEALS 09/30/2023 Active 3 ml insulin glargine 300 unt/ml pen injector (17 sources) Insulin Analog Start: 02-15-2024 inject 1 dose by subcutaneous injection once daily Toujeo Max SoloStar 300 units/mL subcutaneous solution Dose : 34 unit(s) =, Subcutaneous, qDay, # 4.5 mL, 2 Refill(s), Pharmacy: [facility], Diabetes, 163, cm, 02/15/24 10:25:00 EDT, Height, kg, 02/15/24 10:25:00 EDT, Dosing Weight Start Date: 02/15/24 Status: Ordered Start: 11-04-2023 inject 1 dose by sub cutaneous injection once daily Toujeo Max SoloStar 300 units/mL subcutaneous solution Dose : 55 unit(s) =, Subcutaneous, qDay, # 6 mL, 2 Refill(s), Pharmacy: [facility], 160, cm, 10/17/23 15:51:00 EST, Height, kg, 10/17/23 15:51:00 EST, Dosing Weight Start Date: 11/04/23 Status: Ordered Start: 09-16-2023 insulin glargi ne U-300 conc (TOUJEO MAX) 300 unit/mL (3 mL) inpn Inject 34 Units subcutaneously. 09/16/2023 Active Start: 09-16-2023 insulin glargi ne (Toujeo Max Solostar- 2 unit dial) 300 unit/mL (3 mL) injection Inject 34 Units under the skin once daily in the morning. 09/16/2023 Active Start: 09-16-2023 inject 1 dose by sub cutaneous injection once daily at bedtime Lantus Solostar Pen 100 units/mL 3 mL Pen Dose : 50 unit(s) =, Subcutaneous, qHS, # 15 mL, 0 Refill(s), Pharmacy: [facility], 160, cm, 09/14/23 9:08:00 EST, Height, kg, 09/14/23 9:08:00 EST, Dosing Weight Start Date: 09/16/23 Status: Ordered inject 39 [IU] by sotomayor bcutaneous injection every twenty-four hours insulin glargine (Lantus U-100 Insulin) 100 unit/mL injection Inject 39 Units under the skin once every 24 hours. Take as directed per insulin instructions. 0 Active inject 20 [IU] by sotomayor bcutaneous injection every twenty-four hours insulin glargine (Lantus U-100 Insulin) 100 unit/mL injection Inject 20 Units under the skin once every 24 hours. Take as directed per insulin instructions. 0 Active insulin lispro 100 unt/ml injectable solution (2 sources) Insulin Analog Start: 02-28-2024 0-5 Units, sub cutaneous, 3 times daily (morning, midday, late afternoon), First dose on Tue02/28/24 at 0800, Do not hold when patient is not eating, continue order as scheduled for hyperglycemia management. Insulin Lispro Corrective Scale #1 Hypoglycemia protocol Call LIP unit(s) if Blood Glucose is between 0 - 70 mg/dL 0 unit(s) if Blood glucose is between 71-150 1 unit(s) if Blood glucose is between 151-200 2 unit(s) if Blood glucose is between 201-250 3 unit(s) if Blood glucose is between 251-300 4 unit(s) if Blood glucose is between 301-350 5 unit(s) if Blood glucose is between 351-400 Notify provider unit(s) if Blood Glucose is greater than 400 mg/dL Start: 11-10-2023 insulin lispro (HumaLOG) injection 0-5 Units insulin lispro 25 unt/ml / insulin lispro protamine, human 75 unt/ml injectable suspension (1 source) Insulin Analog Start: 12-05-2023 inject 10 [IU] by subcutaneous injection three times daily before mealtime 10 Units, subcutaneous, 3 times daily before meals, First dose on Tue12/05/23 at 1600 Ketamine (13 sources) General Anesthetic Start: 02-15-2024 ketamine 5% nasal spray solution (CPD) mix for pain QID nasally, 0 Refill(s), 109.1 02/15/2024 Active Start: 02-15-2024 ketamine mix f or pain QID nasally, 0 Refill(s), 109.1 Start Date: 02/15/24 Status: Ordered Start: 10-28-2023 ketamine HCl ( ketamine, bulk,) 100 % powder Indications: Chronic pancreatitis, unspecified pancreatitis type (Multi) , Generalized abdominal pain Ketamine 100 mg/mL + lidocaine 40 mg/mL 1 puff 4 times daily as needed, DSP#20 mL x 5 refills 1 g 5 10/28/2023 Active Start: 10-28-2023 ketamine HCl ( ketamine, bulk,) 100 % powder Indications: Chronic pancreatitis, unspecified pancreatitis type (CMS/HCC) , Generalized abdominal pain Ketamine 100 mg/mL + lidocaine 40 mg/mL 1 puff 4 times daily as needed, DSP#20 mL x 5 refills 1 g 5 10/28/2023 Suspended Start: 10-28-2023 ketamine HCl ( ketamine, bulk,) 100 % powder Indications: Chronic pancreatitis, unspecified pancreatitis type (CMS/HCC) , Generalized abdominal pain Ketamine 100 mg/mL + lidocaine 40 mg/mL 1 puff 4 times daily as needed, DSP#20 mL x 5 refills 1 g 5 10/28/2023 Active ketamine (bulk) 100 % powder 1 puff (1 source) Start: 12-05-2023 take 1 puff(s) by inhalation four times daily as needed 1 puff, inhalation, 4 times daily PRN, as needed, Starting on Tue12/05/23 at 1410 ketamine HCl powder 100 % powd (2 sources) Start: 04-27-2024 ketamine HCl powder 100 % powd Ketamine 100 mg/mL + lidocaine 40 mg/mL 1 puff in each nostril 4 times daily as needed, DSP# 40 mL x 5 refills 04/27/2024 Active lactulose 667 mg/ml oral solution (20 sources) Osmotic Laxative Start: 02-15-2024 take 1 mL by mouth once daily as needed for constipation lactulose 10 g/15 mL oral syrup gram(s) = mL, Oral, qDay, PRN as needed for constipation, 0 Refill(s) Start Date: 02/15/24 Status: Ordered Start: 11-13-2023 lactulose 20 g kai/30 mL oral solution 20 g Start: 05-06-2023 lactulose 10 g kai/15 mL solution Take 45 mLs ONCE A DAY for Constipation 0 05/06/2023 Active Start: 10-20-2022 End: 03-07-2023 take 1 dose by mouth twice daily as needed lactulose 10 g/15 mL oral syrup Dose : 10 gram(s) = 15 mL, Oral, BID, PRN as needed for constipation Start Date: 03/07/23 Status: Ordered Start: 06-17-2022 take 1 dose by mouth once carmelina y lactulose 10 g/15 mL oral syrup Dose : 10 gram(s) = 15 mL, Oral, qDay Start Date: 06/17/22 Status: Ordered take 15 mL by mouth twice daily as needed for constipation lactulose 10 g/15 mL oral syrup ; 15 milliliter(s) orally 2 times a day, As Needed - for constipation Quantity: 0 Refills: 0 Ordered: 12-May-2023 Alicia Feliciano Generic Substitution Allowed Constulose 10 GM /15ML Oral Solution Quantity: 0 Refills: 0 Ordered: 25-May-2023 DO Active take 15 mL by mouth once daily as needed for constipation lactulose 10 g/15 mL oral syrup ; 15 milliliter(s) orally once a day, As Needed - for constipation Quantity: 0 Refills: 0 Ordered: 02-Apr-2023 Yoana Eugene Generic Substitution Allowed lidocaine 0.05 mg/mg medicated patch (11 sources) Antiarrhythmic, Amide Local Anesthetic Start: 11-15-2017 End: 11-23-2022 apply 1 dose transdermal route once daily lidocaine (Lidoderm) 5 % patch Place 1 patch onto the skin daily 12 hours on, 12 hours off. 0 11/15/2017 Active Lidocaine Viscous 2% mucous membrane solution (1 source) Start: 02-09-2024 take 10 mL by mouth every four hours as needed Lidocaine Viscous 2% mucous membrane solution See Instructions, 10 mL orally every 4 hours as needed As Needed for MOUTH IRRITATION for 1 week, # 100 mL, 0 Refill(s), Pharmacy: [id number], 160, cm, 01/02/24 14:52:00 EDT, Height, kg, 01/02/24 14:52:00 EDT, Dosing Weight Start Date: 02/09/24 Status: Ordered Lidocaine/Maalox/ Diphenhydramine (1:1:1) (3 sources) Start: 02-08-2024 End: 03-09-2024 Lidocaine/Maalo x/Diphenhydrami ne (1:1:1) Indications: Mucositis Swish and spit 10 mL 3 times a day as needed for mucositis. 300 mL 02/08/2024 03/09/2024 Active linaclotide 0.29 mg oral capsule (20 sources) Guanylate Cyclase-C Agonist Start: 01-24-2023 End: 07-23-2023 Linzess 290 mcg oral capsule Dose : 290 mcg = 1 cap(s), Oral, qDay, # 90 cap(s), 1 Refill(s), Pharmacy: [facility], 160, cm, 01/24/23 14:30:00 EDT, Height, kg, 01/24/23 14:30:00 EDT, Dosing Weight Start Date: 01/24/23 Stop Date: 07/23/23 Status: Ordered Start: 06-17-2022 Linzess 290 mc g oral capsule Dose : 290 mcg = 1 cap(s), Oral, qDay Start Date: 06/17/22 Status: Ordered Start: 04-05-2022 Linzess 290 mc g oral capsule Dose : 290 mcg = 1 cap(s), Oral, qDay, Replaces 30 day rx sent, # 90 cap(s), 3 Refill(s), Pharmacy: [facility] ([facility]), 162.5, cm, 02/11/22 18:32:00 EDT, Height, kg, 03/10/22 15:57:00 EDT, Dosing Weight Start Date: 04/05/22 Status: Ordered Start: 06-11-2021 Linzess 290 mc g oral capsule Dose : 290 mcg = 1 cap(s), Oral, qDay, Replaces 30 day rx sent, # 90 cap(s), 3 Refill(s), Pharmacy: [facility], 160, cm, 05/29/21 17:52:00 EDT, Height, kg, 05/29/21 17:52:00 EDT, Dosing Weight Start Date: 06/11/21 Status: Ordered Start: 03-03-2021 End: 03-10-2024 take 1 capsule by mouth once daily linaCLOtide (LINZESS) 290 mcg capsule Take 290 mcg by mouth once daily. 03/03/2021 Active Comment on above: Take 290 mcg by mout h once daily. Lopressor 25mg--USE metoprolol tartrate 25 mg oral tablet (4 sources) Start: 05-26-2021 Lopressor 25mg--USE metoprolol tartrate 25 mg oral tablet Dose : 25 mg = 1 tab(s), Oral, BID, # 180 tab(s), 3 Refill(s), Pharmacy: [facility], 160, cm, 05/26/21 13:15:00 EDT, Height, kg, 05/26/21 13:15:00 EDT, Dosing Weight Start Date: 05/26/21 Status: Ordered Magnesium glycinate (1 source) take 1 tablet by mouth once daily at bedtime magnesium glycinate 200 mg oral tablet ; 1 tab(s) orally once a day (at bedtime) Quantity: 0 Refills: 0 Ordered: 15-Jun-2023 Ann Marie Jimenez Generic Substitution Allowed magnesium glycinate 100 mg magnesium capsule (6 sources) take 2 capsules by mouth once daily at bedtime magnesium glycinate 100 mg magnesium capsule Take 2 capsules (200 mg) by mouth once daily at bedtime. 0 Active magnesium oxide 400 mg oral tablet (20 sources) Start: 05-26-2021 End: 06-08-2024 magnesium oxide 400 mg oral tablet Dose : 400 mg = 1 tab(s), Oral, qDay Start Date: 06/17/22 Status: Ordered Comment on above: Take 1 tablet by naomi th once daily. magnesium salicylate 600 mg oral tablet (9 sources) Start: 03-07-2023 magnesium salicylate 600 mg oral tablet Dose : 600 mg = 1 tab(s), Oral, q4h Start Date: 03/07/23 Status: Ordered melatonin 5 mg oral tablet (20 sources) Start: 02-15-2024 take 1 mg by mouth once daily at bedtime melatonin 5 mg oral capsule mg = cap(s), Oral, qHS, 0 Refill(s) Start Date: 02/15/24 Status: Ordered Start: 12-05-2023 take 3 mg by mouth o nce daily as needed for sleep 3 mg, oral, Nightly PRN, sleep, Starting on 12/05/23 at 1410 Start: 11-10-2023 take 1 tablet by naomi th every twenty-four hours as needed melatonin tablet 10 mg Start: 06-18-2023 melatonin tabl et 10 mg Start: 05-14-2019 take 1 dose by mouth once daily at bedtime melatonin Dose : 10 mg =, Oral, qHS, 0 Refill(s) Start Date: 05/14/19 Status: Ordered Start: 05-14-2019 take 1 tablet by naomi th once daily at bedtime melatonin 5 mg tablet Take 1 tablet (5 mg) by mouth once daily at bedtime. 05/14/2019 Active Start: 05-14-2019 melatonin 3 mg capsule Take by mouth. 05/14/2019 Active take 1 tablet by naomi th once daily at bedtime as needed for sleep Melatonin 10 mg oral tablet ; 1 tab(s) orally once a day (at bedtime), As Needed - for sleep / insomnia Quantity: 0 Refills: 0 Ordered: 26-Apr-2023 Ann Marie Hernandez Generic Substitution Allowed Melatonin 10 MG Oral Capsule Quantity: 0 Refills: 0 Ordered: 25-May-2023 DO Active methocarbamol 500 mg oral tablet (9 sources) Muscle Relaxant Start: 06-06-2023 take 2 tablets by mouth four times daily methocarbamol (Robaxin) 500 mg tablet Take 2 tablets (1,000 mg) by mouth 4 times a day. 0 06/06/2023 Active 24 hr metoprolol succinate 25 mg extended release oral tablet (20 sources) beta-Adrenergic Moody Start: 06-18-2023 End: 06-18-2023 metoprolol succinate XL (Toprol-XL) 25 mg 24 hr tablet - Omnicell Override Pull Start: 06-06-2023 End: 12-27-2024 take 1 tablet by mouth once daily metoprolol succinate XL (Toprol-XL) 25 mg 24 hr tablet Indications: Palpitations Take 1 tablet (25 mg) by mouth once daily. Do not crush or chew. 30 tablet 12/08/2023 Active Start: 04-02-2023 End: 04-02-2023 metoprolol succinate 25 mg o ral TABLET extended release Start: 04/02/23 8:00:00 EDT, Dose = 25 mg, = 1 tab(s), Oral, 04/01/23 16:24:00 EDT Start Date: 04/02/23 Stop Date: 04/02/23 Status: Completed Start: 03-23-2023 End: 11-15-2023 metoprolol succinate 25 mg o ral TABLET extended release Dose : 25 mg = 1 tab(s), Oral, qDay, # 30 tab(s), 3 Refill(s), Pharmacy: [id number], 160, cm, 03/23/23 11:55:00 EDT, Height Start Date: 03/23/23 Stop Date: 07/21/23 Status: Ordered Start: 02-03-2021 End: 07-23-2023 take 1 tablet by mouth twice daily metoprolol tartrate, short acting, (LOPRESSOR) 25 mg tablet Take 25 mg by mouth twice daily. 02/03/2021 Active take 1 tablet by naomi th every twenty-four hours Metoprolol Succinate ER 25 MG Oral Tablet Extended Release 24 Hour Quantity: 0 Refills: 0 Ordered: 25-May-2023 DO Active Comment on above: Take 25 mg by mouth twice daily. metroNIDAZOLE 500 mg oral tablet (3 sources) Nitroimidazole Antimicrobial Start: 06-09-20 take 1 tablet by mouth every twelve hours metroNIDAZOLE (Flagyl) 500 mg tablet Take 1 tablet (500 mg) by mouth every 12 hours. 0 06/09/2023 Active mirtazapine 15 mg oral tablet (20 sources) Start: 06-18-20 mirtazapine (Remeron) tablet 7.5 mg Start: 05-09-2023 End: 05-31-2024 mirtazapine 7.5 mg oral tabl et Dose : 7.5 mg = 1 tab(s), Oral, qHS, # 90 tab(s), 3 Refill(s), Pharmacy: [id number], 160, cm, 04/01/23 14:05:00 EDT, Height, kg, 06/03/23 15:06:00 EDT, Dosing Weight Start Date: 06/06/23 Stop Date: 05/31/24 Status: Ordered Start: 05-26-2021 End: 11-22-2021 mirtazapine 30 mg oral table t Dose : 30 mg = 1 tab(s), Oral, qHS, # 90 tab(s), 1 Refill(s), Pharmacy: [facility], 160, cm, 05/26/21 13:15:00 EDT, Height, kg, 05/26/21 13:15:00 EDT, Dosing Weight Start Date: 05/26/21 Stop Date: 11/22/21 Status: Ordered Mirtazapine 7.5 MG Oral Tablet Quantity: 0 Refills: 0 Ordered: 25-May-2023 DO Active naloxone hydrochloride 40 mg/ml nasal spray (20 sources) Opioid Antagonist Start: 04-28-2023 End: 04-27-2024 naloxone (Narcan) 4 mg/0.1 mL nasal spray USE 1 SPRAY (4 MG) INTRANASALLY ONCE, NEEDED FOR OPIOID OVERDOSE 2 each 0 04/28/2023 04/27/2024 Active Start: 04-25-2023 naloxone 4 mg/ 0.1 mL nasal spray 1 spray(s), Intranasal, AsDirected, PRN see pharmacy notes, may repeat every 2 to 3 minutes until patient responds Start Date: 04/25/23 Status: Ordered Start: 04-09-2023 End: 04-27-2024 naloxone (Narcan) 4 mg/0.1 m L nasal spray INSTILL 1 SPRAY IN ONE NOSTRIL NEEDED FOR ACCIDENTAL OPIOID OVERDOSE; REPEAT WITH SECOND DOSE IN 5 MINUTES IF NO RESPONSE 2 each 0 04/28/2023 04/27/2024 Active nicotine 2 mg chewing gum (15 sources) Cholinergic Nicotinic Agonist Start: 11-11-2023 nicotine polacrilex (Nicorette) gum 2 mg Start: 06-18-2023 nicotine (Omar derm CQ) 7 mg/24 hr patch 1 patch Start: 04-28-2023 End: 04-27-2024 apply 1 dose transdermal route every twenty-four hours nicotine (Nicoderm CQ) 21 mg/24 hr patch APPLY 1 PATCH ON THE SKIN EVERY 24 HOURS 28 patch 0 04/28/2023 04/27/2024 Active Start: 04-28-2023 apply 1 dose transde rmal route every twenty-four hours nicotine 21 mg/24 hr transdermal film, extended release ; 1 patch transdermal every 24 hours Quantity: 30 Refills: 0 Ordered: 28-Apr-2023 Alsallamin, Terry Y Start: 28-Apr-2023 Generic Substitution Allowed Start: 04-28-2023 take 4 mg by mouth e very two hours as needed nicotine ; 4 milligram(s) orally every 2 hours, As needed, tobacco cravings Quantity: 0 Refills: 0 Ordered: 28-Apr-2023 Alsallamin, Terry Y Start: 28-Apr-2023 Generic Substitution Allowed apply 1 dose transde rmal route once daily as needed nicotine 7 mg/24 hr transdermal film, extended release ; 1 patch transdermal once a day, As Needed for Tobacco Cravings Quantity: 0 Refills: 0 Ordered: 12-May-2023 Hashyaquelin, Alicia Generic Substitution Allowed nitrofurantoin macrocrystals-monohydrate 100 mg oral capsule (2 sources) Start: 09-23-2021 nitrofurantoin macrocrystals-monohydrate 100 mg oral capsule Dose : 100 mg = 1 cap(s), Oral, qDay, PRN Other (see order comments), Take with food, # 30 cap(s), 2 Refill(s), 92 Start Date: 09/23/21 Status: Ordered nitrofurantoin, macrocrystals 25 mg / nitrofurantoin, monohydrate 75 mg oral capsule (20 sources) Nitrofuran Antibacterial Start: 03-07-2023 End: 11-15-2023 Macrobid 100 mg oral capsule Dose : 100 mg = 1 cap(s), Oral, qDay, PRN Symptoms of urinary discomfort, Take with food, # 30 cap(s), 2 Refill(s), 98.1 Start Date: 03/07/23 Status: Ordered Start: 09-23-2021 nitrofurantoin macrocrystals-monohydrate 100 mg oral capsule Dose : 100 mg = 1 cap(s), Oral, qDay, PRN Other (see order comments), Take with food, # 30 cap(s), 2 Refill(s), 92 Start Date: 09/23/21 Status: Ordered Start: 07-27-2019 nitrofurantoin monohydrate and macrocrystal (MACROBID) 100 mg capsule Take 25 mg by mouth once daily. 07/27/2019 Active Comment on above: Take 25 mg by mouth once daily. nortriptyline 25 mg oral capsule (15 sources) Tricyclic Antidepressant Start: 04-09-20 End: 04-08-20 take 1 capsule by mouth once daily at bedtime nortriptyline (Pamelor) 25 mg capsule TAKE 1 CAPSULE BY MOUTH EVERY NIGHT AT BEDTIME 30 capsule 0 04/09/2023 04/08/2024 Active nystatin [id number] unt/ml oral suspension (17 sources) Polyene Antifungal Start: 02-09-20 take 5 mL by mouth four times daily nystatin 100,000 units/mL oral suspension See Instructions, take 5 (FIVE) mL orally FOUR times daily for 7 (SEVEN) days, # 140 mL, 0 Refill(s), Pharmacy: [id number], 160, cm, 01/02/24 14:52:00 EDT, Height, kg, 01/02/24 14:52:00 EDT, Dosing Weight Start Date: 02/09/24 Status: Ordered Start: 02-09-2024 take 10 mL by mouth three times daily nystatin (Mycostatin) 100,000 unit/mL suspension Take 10 mL (1,000,000 Units) by mouth 3 times a day. 02/09/2024 Active Start: 11-12-2023 nystatin (Myco statin) 100,000 unit/gram powder 1 Application Start: 06-18-2023 nystatin (Myco statin) 100,000 unit/gram powder Apply topically every 8 hours. 06/18/2023 Active Start: 06-18-2023 nystatin (Myco statin) 100,000 unit/gram powder omeprazole 40 mg delayed release oral capsule (20 sources) Proton Pump Inhibitor Start: 01-24-2023 End: 06-30-2024 omeprazole 40 mg oral delayed release capsule Dose : 40 mg = 1 cap(s), Oral, BID, # 180 cap(s), 1 Refill(s), Pharmacy: [id number], 160, cm, 01/02/24 14:52:00 EDT, Height, kg, 01/02/24 14:52:00 EDT, Dosing Weight Start Date: 01/02/24 Stop Date: 06/30/24 Status: Ordered Start: 09-08-2019 End: 06-30-2024 omeprazole 40 mg oral delaye d release capsule Dose : 40 mg = 1 cap(s), Oral, BID, # 60 cap(s), 2 Refill(s) Start Date: 10/18/22 Stop Date: 01/16/23 Status: Ordered Omeprazole 40 MG Oral Capsule Delayed Release Quantity: 0 Refills: 0 Ordered: 25-May-2023 DO Active ondansetron ODT (Zofran-ODT) disintegrating tablet 4 mg (1 source) Start: 11-10-2023 take 1 tablet by mouth every six hours as needed ondansetron ODT (Zofran-ODT) disintegrating tablet 4 mg OXcarbazepine 150 mg oral tablet (9 sources) Anti-epileptic Agent Start: 07-12-2022 OXcarbazepine (Trileptal) 150 mg tablet oxyCODONE hydrochloride 5 mg oral tablet (18 sources) Opioid Agonist Start: 03-01-2024 take 5 mg by mouth three times daily as needed for pain 5 mg, oral, 3 times daily PRN, pain moderate (4-6), first line, Starting on [facility] 03/01/24 at 1533, If ordered PRN for pain, nurse is permitted to administer this medication for higher pain scores based on patient preference? Yes Start: 12-07-2023 End: 12-13-2023 take 1 tablet by mouth every eight hours for pain oxyCODONE (Roxicodone) 5 mg immediate release tablet Indications: Pseudocyst of pancreas Take 1 tablet (5 mg) by mouth every 8 hours if needed for severe pain (7 - 10) for up to 5 days. 15 tablet 0 12/08/2023 12/13/2023 Active Start: 11-15-2023 take 1 tablet by naomi th every six hours as needed oxyCODONE (Roxicodone) immediate release tablet 5 mg Start: 06-16-2023 take 1 tablet by naomi th every four hours as needed oxyCODONE (Roxicodone) immediate release tablet 5 mg Start: 04-25-2023 End: 05-17-2023 oxyCODONE 5 mg oral tablet ( IMMEDIATE release ) Dose : 10 mg = 2 tab(s), Oral, q6h, PRN for pain, 0 Refill(s), 96.4 Start Date: 04/25/23 Status: Ordered Start: 04-09-2023 End: 10-10-2023 take 1 tablet by mouth every six hours as needed oxyCODONE (Roxicodone) 15 mg immediate release tablet TAKE 1 TABLET BY MOUTH EVERY 6 HOURS NEEDED FOR SEVERE PAIN (7-10) 15 tablet 0 04/09/2023 10/10/2023 Active Start: 04-09-2023 End: 10-10-2023 take 1 tablet by mouth every four hours as needed oxyCODONE (Roxicodone) 5 mg immediate release tablet TAKE 1 TABLET BY MOUTH EVERY 4 HOURS NEEDED FOR MODERATE PAIN (4-6) 15 tablet 0 04/09/2023 10/10/2023 Active Comment on above: Caution federal law prohibits the transfer of this drug to any person other than the person for whom it was prescribed.It is very important that you take or use this exactly as directed. Do not skip doses or discontinue unless directed by your doctor.May cause drowsiness or dizziness.This prescription cannot be refilled.Using more of this medication than prescribed may cause serious breathing problems. oxygen (O2) therapy (1 source) Start: 4 oxygen (O2) therapy pantoprazole 40 mg delayed release oral tablet (4 sources) Proton Pump Inhibitor Start: 4 take 40 mg by mouth once daily before breakfast 40 mg, oral, Daily before breakfast, First dose on Tue03/01/24 at 0700, Do not crush, chew, or split. Start: 02-28-2024 End: 02-29-2024 40 mg, intravenous, Daily, F irst dose on Tue02/28/24 at 0900, Reconstitute with 10 mL sodium chloride 0.9% for injection. Push over 2 minutes. Reconstitute with 10 mL sodium chloride 0.9% for injection. Push over 2 minutes. Start: 11-11-2023 pantoprazole ( ProtoNix) injection 40 mg Start: 06-18-2023 pantoprazole ( ProtoNix) EC tablet 40 mg polyethylene glycol [id number] [id number] mg powder for oral solution (9 sources) Osmotic Laxative Start: 02-28-2024 17 g, oral, D aily, First dose on Tue02/28/24 at 0900, Bowel Regimen - for prevention of constipation. Start: 12-05-2023 17 g, oral, Da leah, First dose on Tue12/05/23 at 1430 Bowel Regimen - for prevention of constipation. Start: 11-10-2023 take 17 g by mouth e very twenty-four hours as needed polyethylene glycol (Glycolax, Miralax) packet 17 g Start: 06-22-2022 End: 06-29-2022 take 17 doses by mouth once daily MiraLax oral powder for reconstitution Dose : 17 gram(s) =, Oral, qDay, # 12 EA, 0 Refill(s) Start Date: 06/22/22 Stop Date: 06/29/22 Status: Ordered Start: 05-26-2021 End: 11-22-2021 take 17 doses by mouth once daily MiraLax oral powder for reconstitution Dose : 17 gram(s) =, Oral, Daily, X 90 day(s), # 1,530 gram(s), 1 Refill(s), 11/22/21 14:17:00 EST, Pharmacy: [facility], 160, cm, 05/26/21 13:15:00 EDT, Height, kg, 05/26/21 13:15:00 EDT, Dosing Weight Start Date: 05/26/21 Stop Date: 11/22/21 Status: Ordered potassium chloride 10 meq extended release oral tablet (20 sources) Start: 02-28-2024 20 mEq, oral, Daily, First dose on Tue02/28/24 at 0900, Capsule may be swallowed whole, or may be opened and its contents sprinkled on applesauce if consumed immediately without chewing. Do not crush, chew, or split. Start: 01-02-2024 End: 06-30-2024 potassium chloride 20 mEq or al tablet, extended release Dose : 20 mEq = 1 tab(s), Oral, TID, # 270 tab(s), 1 Refill(s), Pharmacy: [id number], 160, cm, 01/02/24 14:52:00 EDT, Height, kg, 01/02/24 14:52:00 EDT, Dosing Weight Start Date: 01/02/24 Stop Date: 06/30/24 Status: Ordered Start: 12-07-2023 End: 12-07-2023 potassium chloride IVPB - Omnicell Override Pull Start: 12-07-2023 End: 12-07-2023 take 20 mEq intravenously every two hours potassium chloride 20 mEq in 100 mL IV premix Start: 12-06-2023 potassium chlo ride CR (Klor-Con M20) ER tablet 20 mEq Start: 12-05-2023 End: 12-06-2023 20 mEq, oral, Daily, First d ose on 12/05/23 at 1430 Capsule may be swallowed whole, or may be opened and its contents sprinkled on applesauce if consumed immediately without chewing. Do not crush or chew. Start: 11-13-2023 End: 11-14-2023 potassium chloride CR (Klor- Con M20) ER tablet 20 mEq Start: 11-11-2023 End: 11-13-2023 20 mEq, oral, Daily, First d ose on Tue11/11/23 at 0900 Capsule may be swallowed whole, or may be opened and its contents sprinkled on applesauce if consumed immediately without chewing. Do not crush or chew. Start: 06-18-2023 End: 06-18-2023 potassium chloride CR (Klor- Con M20) ER tablet 20 mEq Start: 01-24-2023 End: 07-23-2023 potassium chloride 20 mEq or al tablet, extended release Dose : 20 mEq = 1 tab(s), Oral, TID, # 270 tab(s), 1 Refill(s), Pharmacy: [facility], 160, cm, 01/24/23 14:30:00 EDT, Height, kg, 01/24/23 14:30:00 EDT, Dosing Weight Start Date: 01/24/23 Stop Date: 07/23/23 Status: Ordered Start: 12-02-2022 potassium chlo ride 20 mEq oral tablet, extended release Dose : 20 mEq = 1 tab(s), Oral, TID, in lieu of provider absence, # 90 tab(s), 0 Refill(s), Pharmacy: [id number], 160, cm, 11/12/22 21:20:00 EST, Height Start Date: 12/02/22 Status: Ordered Start: 01-06-2022 End: 07-05-2022 potassium chloride 20 mEq or al tablet, extended release Dose : 20 mEq = 1 tab(s), Oral, TID Start Date: 06/17/22 Status: Ordered Start: 09-24-2021 potassium chlo ride 10 mEq oral capsule, extended release Dose : 20 mEq = 2 cap(s), Oral, TID, 0 Refill(s) Start Date: 09/24/21 Status: Ordered Start: 05-26-2021 take 1 tablet by mouth twice d aily potassium chloride 20 mEq oral tablet, extended release See Instructions, TAKE 1 TABLET BY MOUTH TWICE A DAY, # 180 tab(s), 1 Refill(s), Pharmacy: [facility], 160, cm, 05/26/21 13:15:00 EDT, Height, kg, 05/26/21 13:15:00 EDT, Dosing Weight Start Date: 05/26/21 Status: Ordered Start: 09-10-2016 take 20 mEq by mouth twice david ly potassium chloride 20 mEq TbER Take 20 mEq by mouth twice daily. 09/10/2016 Active potassium chlori de ER (Micro-K) 10 mEq ER capsule Take 2 capsules (20 mEq) by mouth once daily. Active take 1 tablet by naomi three times daily potassium chloride 20 mEq oral tablet, extended release ; 1 tab(s) orally 3 times a day Quantity: 0 Refills: 0 Ordered: 02-Apr-2023 Yoana Eugene Generic Substitution Allowed Potassium Chlori de 20 MEQ TBCR TAKE 1 TABLET 3 TIMES DAILY. Quantity: 0 Refills: 0 Ordered: 25-May-2023 DO Active Comment on above: Take 20 mEq by mouth twice daily. pregabalin 100 mg oral capsule (3 sources) pregabalin (Lyri ca) 100 mg capsule Take 1 capsule (100 mg) by mouth. 0 Active promethazine hydrochloride 25 mg oral tablet (20 sources) Phenothiazine Start: 02-08-20 End: 04-08-20 take 1 tablet by mouth every six hours for nausea promethazine (Phenergan) 25 mg tablet Indications: Chronic pancreatitis, unspecified pancreatitis type (Multi) Take 1 tablet (25 mg) by mouth every 6 hours if needed for nausea or vomiting. 30 tablet 1 02/08/2024 04/08/2024 Active Start: 10-12-2023 End: 11-15-2023 take 1 tablet by mouth every six hours as needed 25 mg, oral, Every 6 hours PRN, nausea/vomiting, first line, Starting on 3/18/24 at 1410 Start: 06-18-2023 take 1 tablet by naomi th every six hours as needed promethazine (Phenergan) tablet 25 mg Start: 02-24-2023 End: 04-25-2023 promethazine 25 mg oral tabl et Dose : 25 mg = 1 tab(s), Oral, BID, # 28 tab(s), 0 Refill(s), Pharmacy: [id number], 160, cm, 04/01/23 14:05:00 EDT, Height, kg, 04/01/23 14:05:00 EDT, Dosing Weight Start Date: 04/11/23 Stop Date: 04/25/23 Status: Ordered Start: 11-13-2022 End: 11-18-2022 promethazine 25 mg oral tabl et Dose : 25 mg = 1 tab(s), Oral, q6hr, PRN as needed for nausea/vomiting, # 20 tab(s), 0 Refill(s), Abdominal pain Rectal bleeding Start Date: 11/13/22 Stop Date: 11/18/22 Status: Ordered take 1 tablet by naomi twice daily promethazine (Phenergan) 25 mg tablet Take 1 tablet (25 mg) by mouth 2 times a day. 0 Active promethazine (Phenergan) 12.5 mg in sodium chloride 0.9% 50 mL IV (3 sources) Start: 02-28-2024 take 12.5 mg intravenously every six hours as needed 12.5 mg, intravenous, Administer over 15 Minutes, Every 6 hours PRN, nausea/vomiting, first line, Starting on Tue02/28/24 at 0658 Start: 02-27-2024 End: 02-28-2024 12.5 mg, intravenous, Admini ster over 15 Minutes, Once, On Tue02/27/24 at 2340, For 1 dose Start: 11-13-2023 take 12.5 mg intrave nously every six hours as needed promethazine (Phenergan) 12.5 mg in sodium chloride 0.9% 50 mL IV 24 hr propranolol hydrochloride 60 mg extended release oral capsule (3 sources) beta-Adrenergic Moody take 1 capsule by mouth once daily propranolol LA (Inderal LA) 60 mg 24 hr capsule Take 1 capsule (60 mg) by mouth once daily. 0 Active risperiDONE 0.5 mg oral tablet (3 sources) Atypical Antipsychotic risperiDO NE (RisperDAL) 0.5 mg tablet rivaroxaban 20 mg oral tablet (20 sources) Factor Xa Inhibitor Start: 11-11-19 10 mg, oral, Daily with evening meal, First dose on Tue11/11/23 at 1700 Best administered with food or immediately before tube feedings. If ordered via NG or G-tube route, crush and mix with 50 mL water; give within 4 hours of mixing. Start: 09-01-2023 End: 11-30-2023 Xarelto 10 mg oral tablet Do se : 10 mg = 1 tab(s), Oral, qDay, sent in absence of PCP, # 90 tab(s), 0 Refill(s), Pharmacy: [id number], 160, cm, 08/09/23 13:03:00 EST, Height, 99.3, kg, 08/09/23 13:03:00 EST, Dosing Weight Start Date: 09/01/23 Stop Date: 11/30/23 Status: Ordered Start: 06-18-2023 rivaroxaban (X arelto) tablet 10 mg Start: 01-24-2023 End: 07-23-2023 Xarelto 10 mg oral tablet Do se : 10 mg = 1 tab(s), Oral, qDay, # 90 tab(s), 1 Refill(s), Pharmacy: [facility], 160, cm, 01/24/23 14:30:00 EDT, Height, 99.3, kg, 01/24/23 14:30:00 EDT, Dosing Weight Start Date: 01/24/23 Stop Date: 07/23/23 Status: Ordered Start: 06-17-2022 Xarelto 10 mg oral tablet Dose : 10 mg = 1 tab(s), Oral, qDay, 98 Start Date: 06/17/22 Status: Ordered Start: 07-14-2021 End: 12-08-2023 Xarelto 10 mg oral tablet Do se : 10 mg = 1 tab(s), Oral, qDay, # 90 tab(s), 3 Refill(s), Pharmacy: [facility] ([facility] [facility]), 162.5, cm, 02/11/22 18:32:00 EDT, Height, 90.9, kg, 02/11/22 18:32:00 EDT, Dosing Weight Start Date: 03/02/22 Status: Ordered take 6 tablets by mo [facility] once daily Xarelto 10 MG Oral Tablet once daily po Quantity: 0 Refills: 0 Ordered: 25-May-2023 DO Active rOPINIRole 0.5 mg oral tablet (20 sources) Nonergot Dopamine Agonist Start: 02-15-2024 End: 08-13-2024 take 0.5 mg by mouth twice daily 0.5 mg, oral, 2 times daily, First dose on Tue02/28/24 at 0900 Start: 01-24-2023 End: 07-23-2023 rOPINIRole 0.5 mg oral table t Dose : 0.5 mg = 1 tab(s), Oral, BID, # 180 tab(s), 1 Refill(s), Pharmacy: [facility], 160, cm, 01/24/23 14:30:00 EDT, Height, kg, 01/24/23 14:30:00 EDT, Dosing Weight Start Date: 01/24/23 Stop Date: 07/23/23 Status: Ordered Start: 10-11-2022 End: 12-10-2022 rOPINIRole 0.5 mg oral table t Dose : 0.5 mg = 1 tab(s), Oral, BID, # 60 tab(s), 1 Refill(s), Pharmacy: [id number], 160, cm, 07/26/22 14:12:00 EST, Height, kg, 07/27/22 9:16:00 EST, Dosing Weight Start Date: 10/11/22 Stop Date: 12/10/22 Status: Ordered Start: 07-14-2022 End: 09-12-2022 rOPINIRole 0.25 mg oral tabl et Dose : 0.25 mg = 1 tab(s), Oral, BID, # 60 tab(s), 1 Refill(s), Pharmacy: [facility], 160, cm, 06/17/22 20:28:00 EDT, Height Start Date: 07/14/22 Stop Date: 09/12/22 Status: Ordered Start: 02-06-2020 take 1 tablet by [facility] once daily rOPINIRole (REQUIP) 2 mg tablet See Instructions, TAKE 1 TABLET BY MOUTH DAILY, # 28 tab(s), 5 Refill(s), Pharmacy: [place] [id number], 161, cm, 02/06/20 14:12:00 EDT, Height, kg, 02/06/20 14:12:00 EDT, Dosing Weight 02/06/2020 Active rOPINIRole HCl - 0.5 MG Oral Tablet Quantity: 0 Refills: 0 Ordered: 25-May-2023 DO Active 1000 ml sodium chloride 9 mg/ml injection (2 sources) Start: 02-27-2024 End: 02-27-2024 take 75 mL intravenously every hour 75 mL/hr, intravenous, Continuous, Starting on Tue02/28/24 at 0410 spironolactone 25 mg oral tablet (16 sources) Aldosterone Antagonist Start: 07-23-2022 spironolactone (Aldactone) 25 mg tablet Start: 10-02-2021 End: 03-31-2022 spironolactone 25 mg oral ta blet Dose : 25 mg = 1 tab(s), Oral, qDay, # 90 tab(s), 3 Refill(s), Pharmacy: [facility] (Now [facility]), 162.5, cm, 02/11/22 18:32:00 EDT, Height, kg, 02/11/22 18:32:00 EDT, Dosing Weight Start Date: 03/02/22 Status: Ordered Start: 09-17-2021 spironolactone 25 mg oral tablet Dose : 25 mg = 1 tab(s), Oral, qDay, # 30 tab(s), 1 Refill(s), Pharmacy: [facility], 160, cm, 09/09/21 12:16:00 EST, Height, kg, 09/09/21 12:16:00 EST, Dosing Weight Start Date: 09/17/21 Status: Ordered Start: 07-16-2021 spironolactone 25 mg oral tablet Dose : 25 mg = 1 tab(s), Oral, qDay, # 30 tab(s), 1 Refill(s), Pharmacy: [facility], 160, cm, 07/02/21 9:50:00 EDT, Height, kg, 07/02/21 10:03:00 EDT, Dosing Weight Start Date: 07/16/21 Status: Ordered Start: 06-23-2021 spironolactone 25 mg oral tablet Dose : 25 mg = 1 tab(s), Oral, qDay, # 30 tab(s), 0 Refill(s), Pharmacy: [facility], 161, cm, 06/22/21 14:39:00 EDT, Height, kg, 06/22/21 14:39:00 EDT, Dosing Weight Start Date: 06/23/21 Status: Ordered topiramate 25 mg oral tablet (3 sources) take 1 tablet by mouth twice daily topiramate (Topamax) 25 mg tablet Take 1 tablet (25 mg) by mouth 2 times a day. 0 Active traZODone hydrochloride 100 mg oral tablet (3 sources) Serotonin Reuptake Inhibitor take 2 tablets by mouth once daily at bedtime traZODone (Desyrel) 100 mg tablet Take 2 tablets (200 mg) by mouth once daily at bedtime. 0 Active valACYclovir 500 mg oral tablet (20 sources) Herpesvirus Nucleoside Analog DNA Polymerase Inhibitor, Herpes Simplex Virus Nucleoside Analog DNA Polymerase Inhibitor, Herpes Zoster Virus Nucleoside Analog DNA Polymerase Inhibitor Start: 05-26-20 End: 01-18-20 take 1 tablet by mouth once daily valACYclovir (Valtrex) 500 mg tablet Indications: Genital herpes simplex, unspecified site Take 1 tablet (500 mg) by mouth once daily. 30 tablet 02/08/2024 03/09/2024 Active Valtrex 500 MG O ral Tablet Quantity: 0 Refills: 0 Ordered: 25-May-2023 DO Active Comment on above: Take 500 mg by mouth once daily. divalproex sodium 250 mg delayed release oral tablet (20 sources) Mood Stabilizer, Anti-epileptic Agent Start: 05-20-2023 End: 05-31-2024 take 250 mg by mouth twice daily 250 mg, oral, 2 times daily, First dose on Tue02/28/24 at 0900, Do not crush, chew, or split. take 1 tablet by mouth twice david ly Divalproex Sodium ER 250 MG Oral Tablet Extended Release 24 Hour BID po DAILY. Quantity: 0 Refills: 0 Ordered: 25-May-2023 DO Active vancomycin 250 mg oral capsule (3 sources) Glycopeptide Antibacterial vancomycin (Vancocin) 250 mg capsule 24 hr venlafaxine 37.5 mg extended release oral capsule (20 sources) Serotonin and Norepinephrine Reuptake Inhibitor Start: 02-28-20 take 1 capsule by mouth once daily 75 mg, oral, Daily, First dose on Tue02/28/24 at 0900, Capsule may be swallowed whole, or may be opened and its contents sprinkled on applesauce if consumed immediately without chewing. Do not crush or chew. Start: 01-02-2024 End: 06-30-2024 take 1 capsule by mouth once daily 150 mg, oral, Daily, First dose on Tue02/28/24 at 0900, Capsule may be swallowed whole, or may be opened and its contents sprinkled on applesauce if consumed immediately without chewing. Do not crush or chew. Start: 12-05-2023 take 1 capsule by [facility] once daily 150 mg, oral, Daily, First dose on Tue12/05/23 at 1430 Capsule may be swallowed whole, or may be opened and its contents sprinkled on applesauce if consumed immediately without chewing. Do not crush or chew. Start: 11-14-2023 venlafaxine XR (Effexor-XR) 24 hr capsule 225 mg Start: 10-31-2023 End: 06-30-2024 venlafaxine 75 mg oral capsu le, extended release Dose : 75 mg = 1 cap(s), Oral, qDay, # 90 cap(s), 1 Refill(s), Pharmacy: [facility], 160, cm, 01/02/24 14:52:00 EDT, Height, kg, 01/02/24 14:52:00 EDT, Dosing Weight Start Date: 01/02/24 Stop Date: 06/30/24 Status: Ordered Start: 06-18-2023 venlafaxine XR (Effexor-XR) 24 hr capsule 225 mg Start: 01-24-2023 End: 07-23-2023 take 1 capsule by mouth once daily venlafaxine 150 mg oral capsule, extended release Dose : 150 mg = 1 cap(s), Oral, qDay, for a total of 225 mg/day., # 90 cap(s), 1 Refill(s), Pharmacy: [facility], 160, cm, 01/24/23 14:30:00 EDT, Height, kg, 01/24/23 14:30:00 EDT, Dosing Weight Start Date: 01/24/23 Stop Date: 07/23/23 Status: Ordered Start: 12-01-2022 End: 07-23-2023 take 1 capsule by mouth once daily venlafaxine 75 mg oral capsule, extended release Dose : 75 mg = 1 cap(s), Oral, qDay, for a total of 225 mg/day., # 90 cap(s), 1 Refill(s), Pharmacy: [facility], 160, cm, 01/24/23 14:30:00 EDT, Height, kg, 01/24/23 14:30:00 EDT, Dosing Weight Start Date: 01/24/23 Stop Date: 07/23/23 Status: Ordered Start: 10-20-2022 venlafaxine 22 5 mg oral tablet, extended release Dose : 225 mg = 1 tab(s), Oral, qDay, # 30 tab(s), 3 Refill(s), Pharmacy: [facility], 160, cm, 10/18/22 12:11:00 EST, Height Start Date: 10/20/22 Status: Ordered Start: 06-17-2022 venlafaxine 15 0 mg oral capsule, extended release Dose : 150 mg = 1 cap(s), Oral, qDay, # 30 cap(s), 0 Refill(s), Pharmacy: [facility], 160, cm, 11/12/22 21:20:00 EST, Height Start Date: 12/01/22 Status: Ordered Start: 10-23-2021 End: 01-21-2022 venlafaxine 150 mg oral caps ule, extended release Dose : 150 mg = 1 cap(s), Oral, qDay, one time refill in absence of PCP, # 90 cap(s), 0 Refill(s), Pharmacy: [facility], 160, cm, 09/22/21 22:52:00 EST, Height, kg, 09/22/21 22:52:00 EST, Dosing Weight Start Date: 10/23/21 Stop Date: 01/21/22 Status: Ordered Start: 05-26-2021 End: 01-21-2022 venlafaxine 150 mg oral caps ule, extended release Dose : 150 mg = 1 cap(s), Oral, qDay, one time refill in absence of PCP, # 90 cap(s), 0 Refill(s), Pharmacy: [facility], 160, cm, 09/22/21 22:52:00 EST, Height, kg, 09/22/21 22:52:00 EST, Dosing Weight Start Date: 10/23/21 Stop Date: 01/21/22 Status: Ordered take 1 tablet by naomi th every twenty-four hours Venlafaxine HCl ER 225 MG Oral Tablet Extended Release 24 Hour Quantity: 0 Refills: 0 Ordered: 25-May-2023 DO Active Comment on above: Take 150 mg by mouth once daily. Vitamin C 1000 mg oral tablet (20 sources) Start: 06-17-2022 Vitamin C 1000 mg oral tablet Dose : 1,000 mg = 1 tab(s), Oral, qDay Start Date: 06/17/22 Status: Ordered Start: 05-29-2021 Vitamin C 1000 mg oral tablet Dose : 1,000 mg = 1 tab(s), Oral, qHS Start Date: 05/29/21 Status: Ordered warfarin sodium 2.5 mg oral tablet (16 sources) Vitamin K Antagonist Start: 03-24-2024 End: 04-18-2025 take 1 tablet by mouth once daily warfarin (COUMADIN) 2.5 mg tablet Take 1 tablet by mouth daily or as directed by [facility] 03/24/2024 04/18/2025 Active Start: 03-02-2024 take 1 tablet by naomi th once daily at bedtime warfarin (Coumadin) 2.5 mg tablet Indications: Pulmonary embolism on right (Multi) Take 1 tablet (2.5 mg) by mouth once daily at bedtime or as directed per After Visit Summary. 30 tablet 03/02/2024 Active Start: 02-29-2024 End: 03-03-2024 take 1 tablet by mouth once daily at bedtime warfarin (Coumadin) 5 mg tablet Indications: Pulmonary embolism on right (Multi) Take 1 tablet (5 mg) by mouth once daily at bedtime. Take as directed per After Visit Summary. 30 tablet 03/01/2024 03/02/2024 Discontinued Start: 05-26-2021 End: 05-21-2022 warfarin 5 mg oral tablet Do se : 5 mg = 1 tab(s), Oral, qDay, Take as directed by Coumadin clinic, # 90 tab(s), 3 Refill(s), Pharmacy: [facility], 160, cm, 05/26/21 13:15:00 EDT, Height, kg, 05/26/21 13:15:00 EDT, Dosing Weight Start Date: 05/26/21 Stop Date: 05/21/22 Status: Ordered warfarin (Coumad in) 1 mg tablet Take 3.5 tablets (3.5 mg) by mouth. 0 Active zonisamide 100 mg oral capsule (20 sources) Anti-epileptic Agent Start: 08-25-2021 End: 02-21-2022 take 4 capsules by mouth once daily, then take 4 capsules by mouth once daily zonisamide (ZONEGRAN) 100 mg capsule Take 4 capsules by mouth once daily. 4 capsules a day 360 capsule 3 08/25/2021 Active Start: 05-26-2021 zonisamide 100 mg oral capsule Dose : 400 mg = 4 cap(s), Oral, qDay Start Date: 05/26/21 Status: Ordered Comment on above: Take 4 capsules by m outh once daily. 4 capsules a day Zubsolv 11.4 mg-2.9 mg sublingual tablet (5 sources) Start: 05-29-2021 take 1 tablet under the tongue once daily Zubsolv 11.4 mg-2.9 mg sublingual tablet Dose = 1 tab(s), Sublingual, qDay, 87.5 Start Date: 05/29/21 Status: Ordered Completed/Discontinued Medications Medication Drug Class(es) Dates Sig (Normalized) Sig (Original) acetaminophen 325 mg oral tablet (20 sources) Start: 03-05-2024 End: 03-05-2024 take 650 mg by mouth once as needed for pain 650 mg, oral, Once, On 03/05/24 at 1815, For 1 dose, If ordered PRN for pain, nurse is permitted to administer this medication for higher pain scores based on patient preference? Yes Start: 02-28-2024 take 1 tablet by naomi th every four hours as needed acetaminophen (Tylenol) tablet 650 mg Start: 12-05-2023 acetaminophen (Tylenol) tablet 975 mg Start: 11-11-2023 take 1 tablet by naomi th every six hours as needed acetaminophen (Tylenol) tablet 650 mg Start: 10-18-2023 End: 10-18-2023 acetaminophen (Tylenol) tabl et 650 mg Start: 06-18-2023 take 1 tablet by naomi th every eight hours as needed acetaminophen (Tylenol) tablet 975 mg Start: 04-28-2023 End: 04-27-2024 take 2 tablets by mouth every eight hours acetaminophen (Tylenol) 325 mg tablet TAKE 2 TABLETS BY MOUTH EVERY 8 HOURS 30 tablet 04/28/2023 04/27/2024 Active Start: 06-17-2022 acetaminophen 500 mg oral tablet Dose : 500 mg = 1 tab(s), Oral, qDay, PRN as needed for pain Start Date: 06/17/22 Status: Ordered take 2 tablets by mo [facility] every eight hours as needed acetaminophen 500 mg oral tablet ; 2 tab(s) orally every 8 hours, As Needed for pain Quantity: 0 Refills: 0 Ordered: 16-May-2023 Adelina Thompson Generic Substitution Allowed buprenorphine 8.6 mg / naloxone 2.1 mg sublingual tablet (18 sources) Partial Opioid Agonist, Opioid Antagonist Start: 04-21-2021 End: 05-31-2024 ZUBSOLV 8.6-2.1 mg subl Dissolve 2 tablets under the tongue once daily. 04/21/2021 05/31/2024 Discontinued Comment on above: Dissolve 2 tablets u nder the tongue once daily. calcium chloride 0.0014 meq/ml / potassium chloride 0.004 meq/ml / sodium chloride 0.103 meq/ml / sodium lactate 0.028 meq/ml injectable solution (2 sources) Start: 11-10-2023 End: 11-11-2023 lactated Ringer's infusion dicyclomine hydrochloride 10 mg oral capsule (20 sources) Anticholinergic Start: 10-18-2022 End: 10-28-2022 dicyclomine 10 mg oral capsule Dose : 10 mg = 1 cap(s), Oral, QID, # 40 cap(s), 0 Refill(s) Start Date: 10/18/22 Stop Date: 10/28/22 Status: Ordered Start: 02-02-2022 End: 02-07-2022 dicyclomine 10 mg oral capsu le Dose : 10 mg = 1 cap(s), Oral, QID, # 20 cap(s), 0 Refill(s) Start Date: 02/02/22 Stop Date: 02/07/22 Status: Ordered Start: 09-23-2021 dicyclomine 20 mg oral tablet Dose : 20 mg = 1 tab(s), Oral, QID, PRN abdominal discomfort, 0 Refill(s) Start Date: 09/23/21 Status: Ordered Start: 05-26-2021 End: 06-08-2024 dicyclomine 20 mg oral table t Dose : 20 mg = 1 tab(s), Oral, QID, PRN abdominal discomfort, # 90 tab(s), 1 Refill(s), Pharmacy: [facility], 160, cm, 05/26/21 13:15:00 EDT, Height, kg, 05/26/21 13:15:00 EDT, Dosing Weight Start Date: 05/26/21 Stop Date: 06/15/21 Status: Ordered Comment on above: Take 20 mg by mouth four times daily as needed. 2 ml droperidol 2.5 mg/ml injection (2 sources) Dopamine-2 Receptor Antagonist Start: 04-30-20 End: 04-30-20 droperidol (Inapsine) injection 5 mg 1 ml enoxaparin sodium 100 mg/ml prefilled syringe (11 sources) Low Molecular Weight Heparin Start: 12-08-19 24 End: 03-26-20 inject 1 mL by subcutaneous injection twice daily enoxaparin (Lovenox) 100 mg/mL syringe Indications: Pulmonary embolism (Multi) Inject 1 mL (100 mg) under the skin 2 times a day. 28 each 03/01/2024 03/02/2024 Discontinued (Stop Taking at Discharge) Start: 12-07-2023 enoxaparin (Lo venox) syringe 100 mg enoxaparin (Love nox) 80 mg/0.8 mL syringe 0.8 mL (80 mg). 0 Active famotidine 20 mg oral tablet (7 sources) Histamine-2 Receptor Antagonist Start: 12-06-2023 End: 12-06-2023 famotidine (Pepcid) tablet 20 mg Start: 06-17-2022 Pepcid 40 mg o ral tablet Dose : 40 mg = 1 tab(s), Oral, qDay Start Date: 06/17/22 Status: Ordered Start: 02-02-2022 End: 02-16-2022 Pepcid 40 mg oral tablet Dos e : 40 mg = 1 tab(s), Oral, BID, # 28 tab(s), 0 Refill(s) Start Date: 02/02/22 Stop Date: 02/16/22 Status: Ordered 1 ml fentaNYL 0.05 mg/ml injection (8 sources) Opioid Agonist Start: 10-18-2023 End: 10-18-2023 fentaNYL PF (Sublimaze) injection Start: 08-26-2023 End: 08-26-2023 fentaNYL PF (Sublimaze) inje ction gadoterate meglumine (Dotarem) 0.5 mmol/mL contrast injection 20 mL (2 sources) Start: 11-09-2023 End: 11-09-2023 gadoterate meglumine (Dotarem) 0.5 mmol/mL contrast injection 20 mL 1 ml haloperidol 5 mg/ml prefilled syringe (2 sources) Typical Antipsychotic Start: 04-29-2023 End: 04-29-2023 haloperidol lactate (Haldol) injection 5 mg heparin (20 sources) Unfractionated Heparin, Anti-coagulant Start: 03-05-2024 End: 03-05-2024 500 Units (5 mL), intravenous, Once, On Tue03/05/24 at 1840, For 1 dose Start: 02-28-2024 End: 03-02-2024 0-4,500 Units/hr (0-45 mL/hr ), intravenous, Continuous, Starting on Tue02/28/24 at 0250, Until Tue03/02/24 at 1619, High Intensity Heparin Protocol (70-124kg) Initial Dose: 18 units/kg/hr --> Use heparin calculator for units/hr rate Maximum Initial Dose: 2000 units/hr Recheck Heparin Assay, UFH level 4 hours after any rate change, or per protocol. Titration Table: Heparin Assay, UFH 1.2: HOLD heparin infusion for 1 hour, then recheck heparin assay. If repeat is > 0.7, continue to HOLD INFUSION. Confirm last draw was performed correctly (pump was paused for a minimum of 2 minutes, sample NOT drawn off line/lumen where medication was infusing) and contact provider for further orders. If repeat is Start: 12-05-2023 End: 12-07-2023 heparin 25,000 Units in dext emmanuelle 5% 250 mL (100 Units/mL) infusion (premix) Start: 12-05-2023 End: 12-07-2023 take [id number] [IU] intravenously every four hours as needed heparin (porcine) injection 2,000-4,000 Units Start: 11-15-2023 End: 11-15-2023 heparin flush 100 unit/mL sy ringe 500 Units Start: 11-11-2023 heparin 25,000 Units in dextrose 5% 250 mL (100 Units/mL) infusion (premix) Start: 09-28-2023 heparin lock f lush (porcine) injection 500 Units heparin bolus from bag 8,240 Units (1 source) Start: 02-28-2024 End: 02-28-2024 8,240 Units (80 Units/kg 103 kg), intravenous, Once, On Tue02/28/24 at 0250, For 1 dose, Initial bolus 1 ml HYDROmorphone hydrochloride 1 mg/ml cartridge (13 sources) Opioid Agonist Start: 02-28-2024 End: 03-01-2024 1 mg, intravenous, Every 3 hours PRN, pain severe (7-10), first line, Starting on Tue02/28/24 at 0932 Start: 02-28-2024 End: 02-28-2024 take 1 mg intravenously every four hours as needed 1 mg, intravenous, Every 4 hours PRN, pain severe (7-10), first line, Starting on Tue02/28/24 at 0405 Start: 02-27-2024 End: 02-28-2024 0.5 mg, intravenous, Once, O n 02/27/24 at 2340, For 1 dose Start: 02-27-2024 End: 02-27-2024 1 mg, intravenous, Once, On Tue02/27/24 at 1810, For 1 dose Start: 12-06-2023 End: 12-07-2023 take 1 mg intravenously every four hours as needed HYDROmorphone (Dilaudid) injection 1 mg Start: 12-05-2023 End: 12-06-2023 take 0.8 mg intravenously every four hours as needed HYDROmorphone (Dilaudid) injection 0.8 mg Start: 12-05-2023 End: 12-05-2023 take 0.2 mg intravenously every four hours as needed HYDROmorphone (Dilaudid) injection 0.2 mg Start: 11-10-2023 End: 11-10-2023 HYDROmorphone PF (Dilaudid) injection 2 mg Start: 11-10-2023 End: 11-15-2023 take 1 mg intravenously every four hours as needed HYDROmorphone (Dilaudid) injection 1 mg hydrOXYzine hydrochloride 50 mg oral tablet (20 sources) Antihistamine Start: 05-13-2021 End: 06-08-2024 take 1 tablet by mouth four times daily hydrOXYzine HCl (ATARAX) 50 mg tablet Take 50 mg by mouth four times daily. 05/13/2021 06/08/2024 Discontinued take 1 tablet by naomi twice daily as needed for anxiety hydrOXYzine HCL (Atarax) 25 mg tablet Ta ke 1 tablet (25 mg) by mouth 2 times a day as needed for anxiety. Active Comment on above: Take 50 mg by mouth four times daily. ibuprofen 400 mg oral tablet (7 sources) Nonsteroidal Anti-inflammatory Drug Start: End: take 1 tablet by mouth every eight hours for pain ibuprofen 400 mg tablet Indications: Pancreatic pseudocyst ([facility]-HCC) Take 1 tablet (400 mg) by mouth every 8 hours if needed for moderate pain (4 - 6) for up to 10 days. 30 tablet 02/21/2024 03/02/2024 Discontinued (Stop Taking at Discharge) Start: 06-17-2022 ibuprofen 200 mg oral tablet Dose : 400 mg = 2 tab(s), Oral, qDay, PRN as needed for pain Start Date: 06/17/22 Status: Ordered Start: 03-07-2021 ibuprofen 600 mg oral tablet Dose : 600 mg = 1 tab(s), Oral, q8h, PRN as needed for pain, 0 Refill(s) Start Date: 03/07/21 Status: Ordered iohexol (OMNIPaque) 350 mg iodine/mL solution 67 mL (1 source) Start: 02-27-2024 End: 02-27-2024 67 mL, intravenous, Once in imaging, Starting on Tue02/27/24 at 2229, For 1 dose iohexol (OMNIPaque) 350 mg iodine/mL solution 68 mL (1 source) Start: 02-27-2024 End: 02-27-2024 68 mL, intravenous, Once in imaging, Starting on Tue02/27/24 at 2014, For 1 dose iohexol (OMNIPaque) 350 mg iodine/mL solution 80 mL (2 sources) Start: 12-06-2023 End: 12-06-2023 iohexol (OMNIPaque) 350 mg iodine/mL solution 80 mL Start: 11-10-2023 End: 11-10-2023 iohexol (OMNIPaque) 350 mg i odine/mL solution 80 mL lacosamide 100 mg oral tablet (20 sources) Anti-epileptic Agent Start: 06-18-2023 lacosamid e (Vimpat) tablet 200 mg Start: 05-29-2021 End: 12-08-2023 lacosamide (VIMPAT) 100 mg t ab 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) 1 tab in am and 2 tabs in pm 270 tablet 1 05/10/2023 Active Start: 05-29-2021 Vimpat 200 mg oral tablet Dose : 200 mg = 1 tab(s), Oral, qHS, 87.5 Start Date: 05/29/21 Status: Ordered take 1 tablet by naomi th once in the morning, then take 2 tablets by mouth in the evening lacosamide 100 mg oral tablet ; take 1 tablet by mouth once in the morning and 2 tablets in the evening Quantity: 0 Refills: 0 Ordered: 03-Apr-2023 Kendall, Christina Generic Substitution Allowed Comment on above: 1 tab in am and 2 ta bs in pm 1 ml LORazepam 2 mg/ml injection (7 sources) Benzodiazepine Start: 04-29-2023 End: 04-29-2023 LORazepam (Ativan) injection 2 mg Start: 07-18-2019 take 1 tablet by naomi th once daily LORazepam 1 mg oral tablet take 1 tablet by mouth WITH ONSET OF AURA NO MORE THAN ONCE DAILY Start Date: 07/18/19 Status: Ordered Magnesium (2 sources) Magnesium 400 MG CAPS Quantity: 0 Refills: 0 Ordered: 25-May-2023 DO Active Methamphetamine (2 sources) Amphetamine Anorectic, Central Nervous System Stimulant Methamphetamine HCl TABS Quantity: 0 Refills: 0 Ordered: 25-May-2023 DO Active methenamine hippurate 1000 mg oral tablet (20 sources) Start: 01-02-2024 End: 03-02-2024 methenamine hippurate 1 g oral tablet Dose : 1 gram(s) = 1 tab(s), Oral, BID, X 30 day(s), # 60 tab(s), 1 Refill(s), 03/02/24 3:34:00 PM EDT, Pharmacy: [facility], 160, cm, 01/02/24 14:52:00 EDT, Height, kg, 01/02/24 14:52:00 EDT, Dosing Weight Start Date: 01/02/24 Stop Date: 03/02/24 Status: Ordered Start: 01-24-2023 End: 07-23-2023 methenamine hippurate 1 g or al tablet Dose : 1 gram(s) = 1 tab(s), Oral, qDay, X 90 day(s), # 90 tab(s), 1 Refill(s), 07/23/23 2:55:00 PM EDT, Pharmacy: [facility], 160, cm, 01/24/23 14:30:00 EDT, Height, kg, 01/24/23 14:30:00 EDT, Dosing Weight Start Date: 01/24/23 Stop Date: 07/23/23 Status: Ordered Start: 06-29-2022 End: 12-26-2022 methenamine hippurate 1 g or al tablet Dose : 1 gram(s) = 1 tab(s), Oral, qDay, X 90 day(s), # 90 tab(s), 1 Refill(s), 12/26/22 13:32:00 EDT, Pharmacy: [facility], 160, cm, 06/17/22 20:28:00 EDT, Height Start Date: 06/29/22 Stop Date: 12/26/22 Status: Ordered Start: 06-17-2022 methenamine hi ppurate 1 g oral tablet Dose : 1 gram(s) = 1 tab(s), Oral, qDay Start Date: 06/17/22 Status: Ordered Start: 02-18-2021 methenamine hi ppurate 1 g oral tablet Dose : 1 gram(s) = 1 tab(s), Oral, qHS, take 1 tablet by mouth once daily WITH VITAMIN C 1000MG FOR URINARY TRACT INFECTION PREVENTION Start Date: 02/18/21 Status: Ordered Start: 01-21-2021 take 1 tablet by naomi th once daily Methenamine Hippurate (HIPREX) 1 gram tablet Take 1 g by mouth once daily. 01/21/2021 Active Comment on above: Take 1 g by mouth on ce daily. 0.6 ml methylnaltrexone bromide 20 mg/ml injection (2 sources) Opioid Antagonist Start: End: inject 12 mg by subcutaneous injection once 12 mg, subcutaneous, Once, On Celeste 03/01/24 at 0945, For 1 dose metoclopramide 10 mg oral tablet (1 source) Dopamine-2 Receptor Antagonist Start: End: take 10 mg by mouth once 10 mg, oral, Once, On 03/05/24 at 1815, For 1 dose 5 ml midazolam 1 mg/ml injection (8 sources) Benzodiazepine Start: End: midazolam (Versed) injection Start: 08-26-2023 End: 08-26-2023 midazolam (Versed) injection nitrofurantoin, macrocrystals 100 mg oral capsule (2 sources) Nitrofuran Antibacterial Macrodantin 100 MG Oral Capsule Quantity: 0 Refills: 0 Ordered: 25-May-2023 DO Active ondansetron 4 mg disintegrating oral tablet (20 sources) Serotonin-3 Receptor Antagonist Start: 03-05-20 End: 03-05-20 take 4 mg by mouth once 4 mg, oral, Once, On 03/05/24 at 1815, For 1 dose Start: 02-27-2024 End: 02-27-2024 4 mg, intravenous, Once, On Tue02/27/24 at 1810, For 1 dose, When administering via IV Push, administer over 3-5 minutes. Start: 12-07-2023 End: 12-08-2023 ondansetron (Zofran) injecti on 4 mg Start: 11-14-2023 ondansetron (Z ofran) injection 4 mg Start: 11-10-2023 End: 11-10-2023 ondansetron (Zofran) injecti on 4 mg Start: 08-26-2023 End: 08-26-2023 ondansetron (Zofran) injecti on Start: 06-18-2023 take 4 mg intravenou sly every six hours as needed ondansetron (Zofran) injection 4 mg Start: 04-25-2023 End: 04-27-2024 take 1 tablet by mouth three times daily as needed for nausea ondansetron ODT (Zofran-ODT) 8 mg disintegrating tablet DISSOLVE 1 TABLET IN MOUTH THREE TIMES A DAY NEEDED FOR NAUSEA 20 tablet 04/28/2023 04/27/2024 Active Start: 08-25-2021 End: 05-31-2024 take 1 tablet by mouth every six hours as needed ondansetron orally disintegrating (ZOFRAN ODT) 4 mg disintegrating tablet Take 1 tablet by mouth every 6 hours as needed for nausea/vomiting. 18 tablet 08/25/2021 05/31/2024 Discontinued Start: 03-15-2021 End: 11-15-2023 take 1 tablet by mouth every eight hours as needed ondansetron (ZOFRAN) 4 mg tablet Take 4 mg by mouth every 8 hours as needed for nausea/vomiting. 03/15/2021 Active Comment on above: Take 4 mg by mouth e very 8 hours as needed for nausea/vomiting. Take 1 tablet by naomi th every 6 hours as needed for nausea/vomiting. perflutren lipid microspheres (Definity) injection 0.5-10 mL of dilution (1 source) Start: 02-28-2024 End: 02-28-2024 0.5-10 mL of dilution, intravenous, Once in imaging, Starting on Tue02/28/24 at 0633, For 1 dose, CV Medications, Contrast - for use by imaging provider only. Prior to administration, Definity product must be activated. First, bring vial to room temperature. Then, shake vial for 45 seconds. Do not use if the 45 second activation cycle has not been completed. Following activation, the product will appear as a milky white suspension and may be used immediately. If not used within 5 minutes of activation, re-suspend by inverting and shaking the vial for 10 seconds. Discard unused product. Administration: Dilute 1.3 mL of activated DEFINITY with 8.7 mL of normal saline in a 10 mL syringe. Inject 0.5 mL of diluted DEFINITY when notified the images/film are unclear to enhance view of Left Ventricular borders. Repeat 0.5 mL of DEFINITY until clear images are obtained, not to exceed 10 mLs. Once images are obtained or limit of medication is reached, flush line with 10 mL of Normal Saline. promethazine (Phenergan) 6.25 mg in sodium chloride 0.9% 50 mL IV (1 source) Start: 11-14-2023 End: 11-15-2023 promethazine (Phenergan) 6.25 mg in sodium chloride 0.9% 50 mL IV sennosides, fdc 8.6 mg oral tablet (1 source) Start: 12-08-2023 End: 12-08-2023 sennosides (Senokot) tablet 17.2 mg Problems Active Problems Problem Classification Problem Date Documented Da te Episodic/Chronic Acute cerebrovascular disease (20 sources) Cerebrovascular accident; Translations: [Cerebral infarction] Onset: 05-21-2021 10-05-2013 Chronic Alcohol-related disorders (20 sources) Alcoholic liver damage; Translations: [Alcoholic liver disease, unspecified] Onset: 05-21-2021 05-21-2021 Chronic Anxiety disorders (20 sources) Generalized anxiety disorder; Translations: [Anxiety] Onset: 12-02-2017 10-05-2013 Chronic Coagulation and hemorrhagic disorders (20 sources) Other primary thrombophilia; 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] Onset: 04-10-2016 10-05-2013 Chronic Congestive heart failure; nonhypertensive (20 sources) Chronic diastolic heart failure; Translations: [Chronic diastolic (congestive) heart failure] Onset: 05-21-2021 03-10-2020 Chronic Diabetes mellitus without complication (16 sources) Diabetes mellitus; Translations: [Type 2 diabetes mellitus] Onset: 11-14-2023 08-19-2023 Chronic Diseases of white blood cells (20 sources) Lymphocytopenia; Translations: [Lymphocytopenia] Onset: 12-02-2017 05-21-2021 Chronic Disorders of lipid metabolism (20 sources) Hyperlipidemia, unspecified; Translations: [Dyslipidemia] Onset: 04-10-2016 03-10-2020 Chronic Epilepsy; convulsions (20 sources) Epilepsy; Translations: [Epilepsy, unspecified, not intractable, without status epilepticus] Onset: 11-26-2019 Chronic Epilepsy; convulsions (20 sources) Seizure disorder; Translations: [Seizure] Onset: 04-01-2023 03-10-2020 Episodic Essential hypertension (20 sources) Hypertensive disorder; Translations: [Essential (primary) hypertension] Onset: 05-21-2021 05-21-2021 Chronic Fluid and electrolyte disorders (3 sources) Hypokalemia; Translations: [Hypokalemia] Onset: 12-02-2017 Episodic Headache, including migraine (20 sources) Migraine, unspecified, not intractable, without status migrainosus; Translations: [Migraine] Onset: 12-02-2017 10-05-2013 Chronic Hypertension with complications and secondary hypertension (1 source) Hypertensive heart failure; Translations: [Hypertensive heart disease with heart failure] Chronic Miscellaneous mental health disorders (1 source) Dissociative disorder; Translations: [Dissociative and conversion disorder, unspecified] Onset: 01-25-2023 Chronic Mood disorders (20 sources) Bipolar I disorder; Translations: [Depressive disorder] Onset: 07-03-2023 05-26-2021 Chronic Mood disorders (1 source) Major depressive disorder, single episode, unspecified; Translations: [MAJOR DEPRESSIVE DISORDER, SINGLE EPISODE, UNSPECI] Onset: 12-02-2017 Mycoses (1 source) Candidiasis of vagina; Translations: [Vaginal yeast infection] 05-31-2024 Episodic Nausea and vomiting (20 sources) Nausea and vomiting; Translations: [Nausea with vomiting, unspecified] Onset: 09-23-2021 Episodic Comment on above: NAUSEA Noninfectious gastroenteritis (3 sources) Noninfectious enteritis; Translations: [Noninfective gastroenteritis and colitis, unspecified] Onset: 03-16-2024 Episodic Nonspecific chest pain (1 source) Chest pain; Translations: [Chest pain, unspecified] Onset: 11-13-2022 Episodic Nutritional deficiencies (20 sources) Vitamin D deficiency; Translations: [Vitamin D deficiency, unspecified] Onset: 07-03-2023 02-18-2021 Chronic Other aftercare (1 source) Drug therapy finding; Translations: [[facility] (current) use of anticoagulants] 03-05-2024 Episodic Other circulatory disease (1 source) Presence of other vascular implants and grafts; Translations: [PRESENCE OF OTHER VASCULAR IMPLANTS AND GRAFTS] Onset: 12-02-2017 Chronic Other circulatory disease (20 sources) Inferior vena cava filter in situ; Translations: [Presence of other vascular implants and grafts] Onset: 12-02-2017 05-21-2021 Chronic Other circulatory disease (1 source) History of transient ischemic attack; Translations: [Personal history of transient ischemic attack (TIA), and cerebral infarction without residual deficits] Episodic Other connective tissue disease (1 source) Spasm; Translations: [Cramp and spasm] Onset: 07-02-2021 Episodic Other connective tissue disease (1 source) Swelling of limb; Translations: [Other specified soft tissue disorders] 02-28-2024 Episodic Other connective tissue disease (2 sources) Fibromyalgia; Translations: [Fibromyalgia] Onset: 04-27-2024 Episodic Other diseases of veins and lymphatics (2 sources) Postthrombotic syndrome without complications of unspecified extremity; Translations: [Postthrombotic syndrome without complications of unspecified extremity] Onset: 05-30-2024 Chronic Other disorders of stomach and duodenum (2 sources) Adult hypertrophic pyloric stenosis; Translations: [Adult hypertrophic pyloric stenosis ([facility])] Onset: 03-17-2024 Episodic Other ear and sense organ disorders (1 source) Otitis externa; Translations: [Unspecified otitis externa, unspecified ear] Onset: 07-31-2021 Chronic Other ear and sense organ disorders (14 sources) Impacted cerumen 01-24-2023 Episodic Other female genital disorders (2 sources) Lesion of vulva; Translations: [Other specified noninflammatory disorders of vulva and perineum] 05-31-2024 Episodic Other female genital disorders (1 source) Mass of vulva; Translations: [Other specified noninflammatory disorders of vulva and perineum] 06-08-2024 Episodic Other gastrointestinal disorders (2 sources) Personal history of other diseases of the digestive system; Translations: [Personal history of other diseases of the digestive system] Onset: 03-17-2024 Episodic Other gastrointestinal disorders (4 sources) Other constipation; Translations: [Other constipation] Onset: 07-03-2023 Episodic Other hereditary and degenerative nervous system conditions (20 sources) Restless legs; Translations: [Restless legs syndrome] Onset: 11-11-2017 05-21-2021 Chronic Other liver diseases (2 sources) Enzyme level - finding; Translations: [Abnormal levels of other serum enzymes] Onset: 09-23-2021 Episodic Other nervous system disorders (2 sources) Other chronic pain; Translations: [Other chronic pain] Onset: 05-15-2024 Chronic Other non-traumatic joint disorders (5 sources) Shoulder pain 06-06-2023 Episodic Other nutritional; endocrine; and metabolic disorders (3 sources) Hypocalcemia; Translations: [Other obesity due to excess calories] Onset: 12-02-2017 Chronic Other nutritional; endocrine; and metabolic disorders (20 sources) Obese class I; Translations: [Obesity, unspecified] Onset: 11-27-2019 11-29-2019 Chronic Pancreatic disorders (not diabetes) (20 sources) Recurrent pancreatitis; Translations: [Chronic pancreatitis] Onset: 06-15-2023 03-23-2023 Chronic Comment on above: CHRONIC PANCREATITIS Peripheral and visceral atherosclerosis (20 sources) Ischemic colitis; Translations: [Vascular disorder of intestine, unspecified] Onset: 04-10-2016 08-04-2014 Chronic Phlebitis; thrombophlebitis and thromboembolism (20 sources) Personal history of other venous thrombosis and embolism; Translations: [Deep venous thrombosis] Onset: 11-15-2017 10-05-2013 Episodic Residual codes; unclassified (2 sources) Restlessness and agitation; Translations: [Restlessness and agitation] 04-30-2023 Chronic Residual codes; unclassified (2 sources) Restlessness and agitation; Translations: [Restlessness and agitation] Onset: 04-30-2023 Chronic Residual codes; unclassified (11 sources) Preoperative state 02-18-2021 Episodic Residual codes; unclassified (20 sources) Swelling - edema - symptom 05-26-2021 Episodic Residual codes; unclassified (1 source) Tobacco user; Translations: [Tobacco use] Onset: 09-23-2021 Episodic Residual codes; unclassified (1 source) Pain; Translations: [Pain, unspecified] Onset: 10-28-2021 Episodic Residual codes; unclassified (4 sources) Difficult venous access; Translations: [Other specified health status] 08-26-2023 Episodic Residual codes; unclassified (1 source) History of insertion of inferior vena caval filter 02-15-2024 Episodic Residual codes; unclassified (1 source) H/O: respiratory disease; Translations: [Personal history of other specified conditions] 03-05-2024 Episodic Schizophrenia and other psychotic disorders (20 sources) Psychotic disorder; Translations: [Unspecified psychosis not due to a substance or known physiological condition] Onset: 04-30-2023 05-26-2021 Chronic Spondylosis; intervertebral disc disorders; other back problems (1 source) Backache; Translations: [Dorsalgia, unspecified] Onset: 04-12-2022 Episodic Substance-related disorders (20 sources) Nicotine dependence, cigarettes, uncomplicated; Translations: [Nicotine dependence] Onset: 11-15-2017 11-29-2019 Chronic Substance-related disorders (3 sources) Sedative, hypnotic or anxiolytic dependence with withdrawal, unspecified; Translations: [Opioid dependence with withdrawal] Onset: 12-02-2017 Thyroid disorders (1 source) Hypothyroidism; Translations: [Hypothyroidism, unspecified] Chronic Unclassified (1 source) Body mass index (BMI) 31.0-31.9, adult; Translations: [BODY MASS INDEX (BMI) 31.0-31.9, ADULT] Onset: 12-02-2017 Chronic Unclassified (1 source) Unknown / UNK(Unknown) Onset: 10-27-2017 Unclassified (2 sources) Other specified postprocedural states; Translations: [Other specified postprocedural states] Onset: 10-28-2017 Unclassified (20 sources) Patient encounter status 02-18-2021 Unclassified (2 sources) ICD-10 INTRACTABLE NAUSEA AND VOMITING R11.2 04-26-2023 Comment on above: ICD-10 INTRACTABLE N AUSEA AND VOMITING R11.2 Unclassified (3 sources) 1 MONTH HOSP DSC FROM [place] [id number], CHRONIC PANCREATITIS NO CONSULT 04-08-2023 Comment on above: 1 MONTH HOSP DSC [place], CHRONIC PANCREATITIS NO CONSULT Unclassified (1 source) HOSP DSC FROM [place], CHRONIC PAIN FROM PANCREATITIS. DISCLAIMER ON DSC SUMMARY 04-08-2023 Comment on above: H[facility]P DSC FROM [facility], CHRONIC PAIN FROM PANCREATITIS. DISCLAIMER ON DSC SUMMARY Unclassified (2 sources) CHRONIC PANCREATITIS K86.1 06-15-2023 Comment on above: CHRONIC PANCREATITIS K86.1 Unclassified (1 source) PAIN INFUSION #2 05-25-2023 Comment on above: PAIN INFUSION #2 Unclassified (1 source) PAIN INFUSION #1 05-25-2023 Comment on above: PAIN INFUSION #1 Unclassified (4 sources) Single subsegmental pulmonary embolism without acute cor pulmonale; Translations: [Single subsegmental pulmonary embolism without acute cor pulmonale (Multi)] Onset: 07-03-2023 Urinary tract infections (20 sources) Acute pyelonephritis; Translations: [Acute pyelonephritis] Onset: 01-05-2017 05-21-2021 Episodic Viral infection (20 sources) Genital herpes simplex; Translations: [Herpesviral infection of urogenital system, unspecified] Onset: 06-14-2016 05-21-2021 Chronic Past or Other Problems Problem Classification Problem Date Documented Da te Episodic/Chronic Abdominal pain (20 sources) Epigastric pain; Translations: [Unspecified abdominal pain] Onset: 8 Episodic Administrative/social admission (1 source) Tobacco abuse counseling; Translations: [TOBACCO ABUSE COUNSELING] Onset: 8 Episodic Allergic reactions (12 sources) Allergy status to penicillin; Translations: [Allergy status to sulfonamides status] Onset: 8 Episodic Cardiac dysrhythmias (20 sources) Palpitations; Translations: [Palpitations] Onset: 1 03-10-2020 Episodic Complications of surgical procedures or medical care (5 sources) Post-ERCP acute pancreatitis; Translations: [Other postprocedural complications and disorders of digestive system] Onset: 4 02-04-2024 Episodic Crushing injury or internal injury (20 sources) Injury of kidney; Translations: [Unspecified injury of unspecified kidney, initial encounter] Onset: 1 05-21-2021 Episodic Diabetes mellitus without complication (20 sources) Hyperglycemia, unspecified; Translations: [Hyperglycemia] Onset: 8 02-18-2021 Episodic Diseases of mouth; excluding dental (2 sources) Oral mucositis (ulcerative), unspecified; Translations: [Oral mucositis (ulcerative), unspecified] Onset: 4 Episodic Fever of unknown origin (2 sources) Fever, unspecified; Translations: [Fever, unspecified] Onset: 4 Episodic Gastritis and duodenitis (2 sources) Duodenitis without bleeding; Translations: [Duodenitis without bleeding] Onset: 4 Episodic Gastrointestinal hemorrhage (20 sources) Gastrointestinal hemorrhage; Translations: [Gastrointestinal hemorrhage, unspecified] Onset: 1 08-24-2017 Episodic Genitourinary symptoms and ill-defined conditions (20 sources) Dysuria; Translations: [Dysuria] Onset: 3 05-10-2020 Episodic Headache; including migraine (20 sources) Headache; Translations: [Headaches] Onset: 0 11-29-2019 Episodic Intestinal obstruction without hernia (20 sources) Small bowel obstruction; Translations: [Unspecified intestinal obstruction, unspecified as to partial versus complete obstruction] Onset: 3 06-09-2022 Episodic Malaise and fatigue (20 sources) Asthenia; Translations: [Weakness] Onset: 1 Episodic Other aftercare (1 source) Other termite exterminator (current) drug therapy; Translations: [OTHER SKILLED NURSING (CURRENT) DRUG THERAPY] Onset: 8 Episodic Other aftercare (4 sources) [facility] (current) use of anticoagulants; Translations: [long term care phlebotomist (current) use of anticoagulants] Onset: 8 Episodic Other aftercare (20 sources) Long-term current use of anticoagulant; Translations: [long term care phlebotomist (current) use of anticoagulants] Onset: 1 05-22-2021 Episodic Other circulatory disease (3 sources) Personal history of transient ischemic attack (TIA), and cerebral infarction without residual deficits; Translations: [PRSNL HX OF TIA (TIA), AND CEREB INFRC W/O RESID D] Onset: 8 Episodic Other circulatory disease (20 sources) History of cerebrovascular accident; Translations: [Personal history of transient ischemic attack (TIA), and cerebral infarction without residual deficits] Onset: 1 05-22-2021 Episodic Other connective tissue disease (20 sources) Spasmodic movement; Translations: [Cramp and spasm] Onset: 1 05-22-2021 Episodic Other connective tissue disease (2 sources) Other specified soft tissue disorders; Translations: [Other specified soft tissue disorders] Onset: 4 Episodic Other ear and sense organ disorders (17 sources) Impacted cerumen in right ear; Translations: [Impacted cerumen, right ear] Onset: 3 07-03-2023 Episodic Other ear and sense organ disorders (2 sources) Impacted cerumen, right ear; Translations: [Impacted cerumen, right ear] Onset: 3 Episodic Other gastrointestinal disorders (20 sources) Chronic constipation; Translations: [Other constipation] Onset: 3 06-15-2022 Episodic Other gastrointestinal disorders (2 sources) Constipation, unspecified; Translations: [Constipation, unspecified] Onset: 4 Episodic Other infections; including parasitic (20 sources) H/O: infectious disease; Translations: [Personal history of other infectious and parasitic diseases] Onset: 0 05-26-2022 Episodic Other liver diseases (20 sources) Elevated liver enzymes level; Translations: [Abnormal levels of other serum enzymes] Onset: 3 11-08-2019 Episodic Other lower respiratory disease (20 sources) Dyspnea on exertion; Translations: [Dyspnea, unspecified] Onset: 1 03-10-2020 Episodic Other non-traumatic joint disorders (2 sources) Pain in left shoulder; Translations: [Pain in left shoulder] Onset: 8 Episodic Other nutritional; endocrine; and metabolic disorders (20 sources) Weight gain; Translations: [Abnormal weight gain] Onset: 3 05-26-2021 Episodic Pancreatic disorders (not diabetes) (20 sources) Pancreatitis; Translations: [Acute pancreatitis] Onset: 3 Resolved: 4 07-19-2019 Episodic Pneumonia (except that caused by tuberculosis or sexually transmitted disease) (20 sources) Pneumonia; Translations: [Pneumonia, unspecified organism] Onset: 1 05-21-2021 Episodic Pulmonary heart disease (20 sources) Pulmonary embolism; Translations: [H/O: pulmonary embolus] Onset: 3 01-20-2014 Episodic Residual codes; unclassified (20 sources) Hallucinations; Translations: [Hallucinations, unspecified] Onset: 3 05-26-2021 Episodic Residual codes; unclassified (20 sources) Insomnia; Translations: [Insomnia, unspecified] Onset: 6 05-21-2021 Episodic Residual codes; unclassified (2 sources) Other specified health status; Translations: [Other specified health status] Onset: 4 Episodic Residual codes; unclassified (2 sources) Personal history of other specified conditions; Translations: [Personal history of other specified conditions] Onset: 4 Episodic Unclassified (10 sources) Insomnia, unspecified; Translations: [Tobacco use] Onset: 8 Episodic Unclassified (1 source) ABD PAIN/MASSILLON/RM 30 Onset: 8 Unclassified (1 source) GI SPECIALIST 04-26-2023 Comment on above: GI SPECIALIST Unclassified (1 source) STOMACH PAIN 06-15-2023 Comment on above: STOMACH PAIN Unclassified (15 sources) Onset: 3 Resolved: 4 08-23-2023 Viral infection (4 sources) Herpesviral vesicular dermatitis; Translations: [Herpesviral vesicular dermatitis] Onset: 4 Episodic Results Test Name Value Interpretation Reference Range Facility [facility] 06-11-2024 [facility] Telephone (DEMETRIOGYWM) DOROTHEA RUTLEDGE ([id number]) 1975 F Date Time Provider Department 06/11/24 LAURY ORR During your visit today, we recorded the following information about you: Elyse Rosales, KAY 06/11/2024 10:03 AM Signed Patient calling with update since starting Baclofen. She started taking it on 06/09 at dinner time. Last dose this morning at 0630. Yesterday she started having involuntary jerking movements with arms and hands every few seconds. Also, she has noticed brain fog and difficulty with simple tasks and memory. For example, she was unable to calculate her carb count like usual and put into meter for insulin pump today. She felt like she couldn't remember how to do that. Advised to not take anymore baclofen and to go to ER for symptoms. Patient is refusing to go to ER for this though. Please advise. KAY Cancino Renee, APRN.HAMLET 06/11/2024 11:52 AM Signed Noted. I can order some topical lidocaine if she was to try that. Laury Orr APRN.Cj Bojorquez RN 06/11/2024 12:09 PM Signed Called patient and states she is starting to feel a little better. Patient states she already has lidocaine gel and patches at home and was using them, but not helping a whole lot. KAY Dai Morgan, MA 06/12/2024 7:55 AM Signed Received prior auth for Baclofen, will disregard since it looks like patient has already picked up medication. Jude Dominguez MA Allergies As of Date: 06/11/2024 Noted Allergy Reaction MORPHINE 04/12/2016 14 - Other: See Comments Comments: Hypotension NEURONTIN (GABAPENTIN) 10/23/2013 5 - Intolerance PENICILLINS 10/23/2013 5 - Intolerance SULFA (SULFONAMIDE ANTIBIOTICS) 10/23/2013 5 - Intolerance Date Reviewed: 06/08/2024 Reviewed by: Belle Snowden MA - Fully Assessed Reason for Visit: Patient Update [1234] Prescriptions as of 06/12/2024 - ketamine 5% nasal spray solution (CPD) mix for pain QID nasally, 0 Refill(s), 109.1 - NOVOLOG FLEXPEN U-100 INSULIN 100 unit/mL (3 mL) INJECT 18 UNITS SUBCUTANEOUSLY THREE TIMES DAILY BEFORE MEALS - insulin glargine U-300 conc (TOUJEO MAX) 300 unit/mL (3 mL) inpn Inject 34 Units subcutaneously. - ketamine HCl powder 100 % powd Ketamine 100 mg/mL + lidocaine 40 mg/mL 1 puff in each nostril 4 times daily as needed, DSP# 40 mL x 5 refills - omeprazole (PRILOSEC) 40 mg capsule Take by mouth. - rOPINIRole (REQUIP) 2 mg tablet See Instructions, TAKE 1 TABLET BY MOUTH DAILY, # 28 tab(s), 5 Refill(s), Pharmacy: [facility] - [place] - [id number], 161, cm, 02/06/20 14:12:00 EDT, Height, kg, 02/06/20 14:12:00 EDT, Dosing Weight - warfarin (COUMADIN) 2.5 mg tablet Take 1 tablet by mouth daily or as directed by [facility] - baclofen 10 mg tablet Take 1 tablet by mouth three times a day. - clonazePAM (KLONOPIN) 0.5 mg tablet Take one tablet as needed for prolonged convulsive seizure or cluster or 3 or more seizures in 24 hours. Do not exceed more than 1 tablet per day. 10 tablets per 30 days. - lacosamide (VIMPAT) 100 mg tab 1 tab in am and 2 tabs in pm - zonisamide (ZONEGRAN) 100 mg capsule Take 4 capsules by mouth once daily. 4 capsules a day - Ascorbic Acid (VITAMIN C) 1,000 mg tablet Take 1 tablet by mouth daily at bedtime. - furosemide (LASIX) 40 mg tablet Take 40 mg by mouth once daily. - metoprolol tartrate, short acting, (LOPRESSOR) 25 mg tablet Take 25 mg by mouth twice daily. - Methenamine Hippurate (HIPREX) 1 gram tablet Take 1 g by mouth once daily. - linaCLOtide (LINZESS) 290 mcg capsule Take 290 mcg by mouth once daily. - ondansetron (ZOFRAN) 4 mg tablet Take 4 mg by mouth every 8 hours as needed for nausea/vomiting. - nitrofurantoin monohydrate and macrocrystal (MACROBID) 100 mg capsule Take 25 mg by mouth once daily. - potassium chloride 20 mEq TbER Take 20 mEq by mouth twice daily. - venlafaxine ER (EFFEXOR XR) 150 mg 24 hr capsule Take 150 mg by mouth once daily. - VALACYCLOVIR HCL (VALTREX ORAL) Take 500 mg by mouth once daily. Meds Comments as of 02/28/2021: February 28, 2021 Started Clonidine, Suboxane. Tia Kwan RN Problem List As Of Date 06/11/2024 Noted Resolved Focal epilepsy (HCC) [G40.109] 11/26/2019 Factor 5 Leiden mutation, heterozygous (HCC) [D*11/26/2019 Anxiety and depression [F41.9, F32.A] 11/26/2019 Headaches [R51.9] 11/26/2019 Nicotine use disorder [F17.200] 11/26/2019 Obesity, Class I, BMI 30-34.9 [E66.9] 11/27/2019 Lymphocytopenia [D72.810] 12/02/2017 Personal history of other venous thrombosis and*12/02/2017 Acute pyelonephritis [N10] 01/05/2017 Alcoholic liver damage (HCC) [K70.9] 05/21/2021 Cerebrovascular accident (CVA) (HCC) [I63.9] 05/21/2021 Chronic diastolic heart failure (HCC) [I50.32] 05/21/2021 Deep vein thrombosis (DVT) (HCC) [I82.409] 05/21/2021 Dyspnea on exertion [R06.09] 05/21/2021 Gas (more content not included)... Normal [facility] Bacteria Wnd Culton 06-08-20 24 Bacteria identified Cx Nom (Wound) ORGANISM ID: [id number] Rare skin keron GRAM STAIN: No organisms seen No Polymorphonuclear Leukocytes Normal [facility] Comment on above: Performed By: #### 6 462-6 #### [facility] CLIA [id number] [address] [place] [address] [place] CNOVon 06-08-2024 CNOV Office Visit (OBGYWM ) DOROTHEA RUTLEDGE ([id number]) 1975 F Date Time Provider Department 06/08/24 2:30 PM LAURY ORR OBGYWM During your visit today, we recorded the following information about you: Blood pressure Weight 134/78 107.5 kg Laury Orr APRN.CNP 06/08/2024 4:04 PM Signed Dorothea Rutledge is a 48 year old female who presents for problem visit vulvar lump and lesion HPI: pt states the sore at the vaginal opening is still painful but has not notice and drainage from it. On the right vulva there is a lump that is very painful. She seen in the ED about 2 weeks ago and they tried to aspirate the lump with a needle and was not able to. 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 LMP: Hysterectomy Age at Menarche: Age at First : Age at Menopause: 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 Comments: Sexual Activity: Yes; Male Contraception: Surgical PAST MEDICAL HISTORY Diagnosis Date Abnormal LFTs Anxiety Common bile duct stone CVA (cerebral infarction) Depression DVT (deep venous thrombosis) (HCC) Factor V Leiden (HCC) HLD (hyperlipidemia) HTN (hypertension) Right upper quadrant pain PAST SURGICAL HISTORY Procedure Laterality Date APPENDECTOMY DELIVERY ONLY , low transverse and horizontal and vertical CHOLECYSTECTOMY Cholecystectomy COLONOSCOPY FLX DX W/COLLJ SPEC WHEN PFRMD Colonoscopy ERCP DX COLLECTION SPECIMEN BRUSHING/WASHING 06/11/15 Cholangiopancreatograph y (ERCP) inpt WC ESOPHAGOGASTRODUODENOSC OPY TRANSORAL DIAGNOSTIC EGD [facility] FILTER TONSILLECTOMY HX TOTAL ABDOMINAL HYSTERECT W/WO RMVL TUBE OVARY Hysterectomy, NOÉ FAMILY HISTORY Problem Relation Age of Onset None Mother None Father None Brother None Sister Social History Tobacco Use Smoking status: Former Smokeless tobacco: Never Vaping Use Vaping status: current everyday user Current Outpatient Medications Medication Sig ketamine 5% nasal spray solution (CPD) mix for pain QID nasally, 0 Refill(s), 109.1 NOVOLOG FLEXPEN U-100 INSULIN 100 unit/mL (3 mL) INJECT 18 UNITS SUBCUTANEOUSLY THREE TIMES DAILY BEFORE MEALS insulin glargine U-300 conc (TOUJEO MAX) 300 unit/mL (3 mL) inpn Inject 34 Units subcutaneously. ketamine HCl powder 100 % powd Ketamine 100 mg/mL + lidocaine 40 mg/mL 1 puff in each nostril 4 times daily as needed, DSP# 40 mL x 5 refills omeprazole (PRILOSEC) 40 mg capsule Take by mouth. rOPINIRole (REQUIP) 2 mg tablet See Instructions, TAKE 1 TABLET BY MOUTH DAILY, # 28 tab(s), 5 Refill(s), Pharmacy: [facility] [address], 161, cm, 02/06/20 14:12:00 EDT, Height, kg, 02/06/20 14:12:00 EDT, Dosing Weight warfarin (COUMADIN) 2.5 mg tablet Take 1 tablet by mouth daily or as directed by [facility] Ascorbic Acid (VITAMIN C) 1,000 mg tablet Take 1 tablet by mouth daily at bedtime. furosemide (LASIX) 40 mg tablet Take 40 mg by mouth once daily. metoprolol tartrate, short acting, (LOPRESSOR) 25 mg tablet Take 25 mg by mouth twice daily. Methenamine Hippurate (HIPREX) 1 gram tablet Take 1 g by mouth once daily. linaCLOtide (LINZESS) 290 mcg capsule Take 290 mcg by mouth once daily. ondansetron (ZOFRAN) 4 mg tablet Take 4 mg by mouth every 8 hours as needed for nausea/vomiting. nitrofurantoin monohydrate and macrocrystal (MACROBID) 100 mg capsule Take 25 mg by mouth once daily. potassium chloride 20 mEq TbER Take 20 mEq by mouth twice daily. venlafaxine ER (EFFEXOR XR) 150 mg 24 hr capsule Take 150 mg by mouth once daily. VALACYCLOVIR HCL (VALTREX ORAL) Take 500 mg by mouth once daily. clonazePAM (KLONOPIN) 0.5 mg tablet Take one tablet as needed for prolonged convulsive seizure or cluster or 3 or more seizures in 24 hours. Do not exceed more than 1 tablet per day. 10 tablets per 30 days. lacosamide (VIMPAT) 100 mg tab 1 tab in am and 2 tabs in pm zonisamide (ZONEGRAN) 100 mg capsule Take 4 capsules by mouth once daily. 4 capsules a day hydrOXYzine HCl (ATARAX) 50 mg tablet Take 50 mg by mouth four times daily. (Patient not taking: Reported on 05/31/2024) dicyclomine (BENTYL) 20 mg tablet Take 20 mg by mouth four times daily as needed. (Patient not taking: Reported on 05/31/2024) magnesium oxide 400 mg magnesium tab Take 1 tablet by mouth once daily. (Patient not taking: Reported on 05/31/2024) No current facility-administered medications for this visit. Allergies As of Date: 06/08/2024 Allergen Noted Reaction MORPHINE 04/12/2016 Other: See Comments NEURONTIN [GABAPENTIN] 10/23/2013 Intolerance PENICILLINS 10/23/2013 Intolerance SULFA (SULFONAMIDE ANTIBIOTICS) 10/23/2013 Intolerance Fully Assessed 06/08/2024 REVIEW OF SYSTEMS Expanded ROS: N/A Allergies and current medication updated:Yes SENSITIVE EXAM: The sensitive examination was discu (more content not included)... Normal [facility] CBC W Auto Differential pane l (Bld)on 06-04-2024 Basophils (Bld) [#/Vol] 0.07 x10*3/uL Normal 0.00-0.10 [facility] Comment on above: Performed By: #### 5 7021-8 ####IRVIN MUNGUIA ([id number])[facility] ([facility])[address] [place] [address] 46810 Basophils/100 WBC (Bld) 0.8 % Normal 0.0-2.0 [facility] Comment on above: Performed By: #### 5 7021-8 ####IRVIN MUNGUIA ([id number])[facility] ([facility])[address] [place] [address] 53231 Eosinophils (Bld) [#/Vol] 0.16 x10*3/uL Normal 0.00-0.70 [facility] Comment on above: Performed By: #### 5 7021-8 ####IRVIN MUNGUIA ([id number])[facility] ([facility])[address] [place] [address] 56524 Eosinophils/100 WBC (Bld) 1.8 % Normal 0.0-6.0 [facility] Comment on above: Performed By: #### 5 7021-8 ####IRVIN MUNGUIA ([id number])[facility] ([facility])[address] [place] [address] 19028 Erythrocyte distribution width (RBC) [Ratio] 15.9 % High 11.5-14.5 [facility] Comment on above: Performed By: #### 5 7021-8 ####IRVIN MUNGUIA ([id number])[facility] ([facility])[address] [place] [address] 39014 Hematocrit (Bld) [Volume fraction] 45.0 % Normal 36.0-46.0 [facility] Comment on above: Performed By: #### 5 7021-8 ####IRVIN MUNGUIA ([id number])[facility] ([facility])[address] [place] [address] 82752 Hemoglobin (Bld) [Mass/Vol] 13.7 g/dL Normal 12.0-16.0 [facility] Comment on above: Performed By: #### 5 7021-8 ####IRVIN MUNGUIA ([id number])[facility] ([facility])[address] [place] [address] 55611 Immature granulocytes (Bld) [#/Vol] 0.11 x10*3/uL Normal 0.00-0.70 [facility] Comment on above: Performed By: #### 5 7021-8 ####IRVIN MUNGUIA ([id number])[facility] ([facility])[address] [place] [address] 40835 Immature granulocytes/100 WBC (Bld) 1.2 % High 0.0-0.9 [facility] Comment on above: Result Comment: Debbie ture Granulocyte Count (IG) includes promyelocytes, myelocytes and metamyelocytes but does not include bands. Percent differential counts (%) should be interpreted in the context of the absolute cell counts (cells/UL). Performed By: #### 5 7021-8 ####IRVIN MUNGUIA ([id number])[facility] ([facility])[address] [place] [address] 60764 Lymphocytes (Bld) [#/Vol] 2.10 x10*3/uL Normal 1.20-4.80 [facility] Comment on above: Performed By: #### 5 7021-8 ####IRVIN MUNGUIA ([id number])[facility] ([facility])[address] [place] [address] 14563 Lymphocytes/100 WBC (Bld) 23.7 % Normal 13.0-44.0 [facility] Comment on above: Performed By: #### 5 7021-8 ####IRVIN MUNGUIA ([id number])[facility] ([facility])[address] [place] [address] 28183 MCH (RBC) [Entitic mass] 26.4 pg Normal 26.0-34.0 [facility] Comment on above: Performed By: #### 5 7021-8 ####IRVIN MUNGUIA ([id number])[facility] ([facility])[address] [place] [address] 15487 MCHC (RBC) [Mass/Vol] 30.4 g/dL Low 32.0-36.0 [facility] Comment on above: Performed By: #### 5 7021-8 ####IRVIN MUNGUIA ([id number])[facility] ([facility])[address] [place] [address] 88847 MCV (RBC) [Entitic vol] 87 fL Normal 80-100 [facility] Comment on above: Performed By: #### 5 7021-8 ####IRVIN MUNGUIA ([id number])[facility] ([facility])[address] [place] [address] 58691 Monocytes (Bld) [#/Vol] 0.73 x10*3/uL Normal 0.10-1.00 [facility] Comment on above: Performed By: #### 5 7021-8 ####IRVIN MUNGUIA ([id number])[facility] ([facility])[address] [place] [address] 33973 Monocytes/100 WBC (Bld) 8.2 % Normal 2.0-10.0 [facility] Comment on above: Performed By: #### 5 7021-8 ####IRVIN MUNGUIA ([id number])[facility] ([facility])[address] [place] [address] 19125 Neutrophils (Bld) [#/Vol] 5.70 x10*3/uL Normal 1.20-7.70 [facility] Comment on above: Result Comment: Perc ent differential counts (%) should be interpreted in the context of the absolute cell counts (cells/uL). Performed By: #### 5 7021-8 ####IRVIN MUNGUIA ([id number])[facility] ([facility])[address] [place] [address] 35390 Neutrophils/100 WBC (Bld) 64.3 % Normal 40.0-80.0 [facility] Comment on above: Performed By: #### 5 7021-8 ####IRVIN MUNGUIA ([id number])[facility] ([facility])[address] [place] [address] 27440 Nucleated RBC/100 WBC (Bld) [Ratio] 0.0 /100 WBCs Normal 0.0-0.0 [facility] Comment on above: Performed By: #### 5 7021-8 ####IRVIN MUNGUIA ([id number])[facility] ([facility])[address] [place] [address] 47371 Platelets (Bld) [#/Vol] 322 x10*3/uL Normal 150-450 [facility] Comment on above: Performed By: #### 5 7021-8 ####IRVIN MUNGUIA ([id number])[facility] ([facility])[address] [place] [address] 39571 RBC (Bld) [#/Vol] 5.19 x10*6/uL Normal 4.00-5.20 [facility] Comment on above: Performed By: #### 5 7021-8 ####IRVIN MUNGUIA ([id number])[facility] ([facility])[address] [place] [address] 79942 WBC (Bld) [#/Vol] 8.9 x10*3/uL Normal 4.4-11.3 [facility] Comment on above: Performed By: #### 5 7021-8 ####IRVIN MUNGUIA ([id number])[facility] ([facility])[address] [place] [address] ABDOMEN PELVIS W IV CONTR Reny 06-04-2024 CT ABDOMEN PELVIS W IV CONTRAST Normal [facility] Comprehensive metabolic 2000 panelon 06-04-2024 Albumin BCP dye [Mass/Vol] 4.7 g/dL Normal 3.4-5.0 [facility] Comment on above: Performed By: #### 2 4323-8 ####IRVIN MUNGUIA ([id number])[facility] ([facility])[address] [place] [address] ALP [Catalytic activity/Vol] 143 U/L High 33-110 [facility] Comment on above: Performed By: #### 2 4323-8 ####IRVIN MUNGUIA ([id number])[facility] ([facility])[address] [place] [address] 72745 ALT With P-5'-P [Catalytic activity/Vol] 100 U/L High 7-45 [facility] Comment on above: Result Comment: Evelyn ents treated with Sulfasalazine may generate falsely decreased results for ALT. Performed By: #### 2 4323-8 ####IRVIN MUNGUIA ([id number])[facility] ([facility])[address] [place] [address] Anion gap [Moles/Vol] 15 mmol/L Normal 10-20 [facility] Comment on above: Performed By: #### 2 4323-8 ####IRVIN MUNGUIA ([id number])[facility] ([facility])[address] [place] [address] AST With P-5'-P [Catalytic activity/Vol] 62 U/L High 9-39 [facility] Comment on above: Performed By: #### 2 4323-8 ####IRVIN MUNGUIA ([id number])[facility] ([facility])[address] [place] [address] Bilirubin [Mass/Vol] 0.4 mg/dL Normal 0.0-1.2 [facility] Comment on above: Performed By: #### 2 4323-8 ####IRVIN MUNGUIA ([id number])[facility] ([facility])[address] [place] [address] 92913 Calcium [Mass/Vol] 9.8 mg/dL Normal 8.6-10.3 [facility] Comment on above: Performed By: #### 2 4323-8 ####IRVIN MUNGUIA ([id number])[facility])[address] [place] [address] 90066 Chloride [Moles/Vol] 100 mmol/L Normal 98-107 [facility] Comment on above: Performed By: #### 2 4323-8 ####IRVIN MUNGUIA ([id number])[facility])[address] [place] [address] 93054 CO2 [Moles/Vol] 26 mmol/L Normal 21-32 [facility] Comment on above: Performed By: #### 2 4323-8 ####IRVIN MUNGUIA ([id number])[facility] ([facility])[address] [place] [address] 15955 Creatinine [Mass/Vol] 0.96 mg/dL Normal 0.50-1.05 [facility] Comment on above: Performed By: #### 2 4323-8 ####IRVIN MUNGUIA ([id number])[facility])[address] [place] [address] 63125 Glomerular filtration rate/1.73 sq M.predicted 73 mL/min/1.73m*2 Normal >60 [facility] Comment on above: Result Comment: Calc ulations of estimated GFR are performed using the 2020 CKD-EPI Study Refit equation without the race variable for the IDMS-Traceable creatinine methods.https://jasn.asnjournals.org/content/early// N.2579667449 Performed By: #### 2 4323-8 ####IRVIN MUNGUIA ([id number])[facility] ([facility])[address] [place] [address] 08492 Glucose [Mass/Vol] 153 mg/dL High 74-99 [facility] Comment on above: Performed By: #### 2 4323-8 ####IRVIN MUNGUIA ([id number])[facility] ([facility])[address] [place] [address] 66221 Potassium [Moles/Vol] 3.8 mmol/L Normal 3.5-5.3 [facility] Comment on above: Performed By: #### 2 4323-8 ####IRVIN MUNGUIA ([id number])[facility] ([facility])[address] [place] [address] 02974 Protein [Mass/Vol] 7.5 g/dL Normal 6.4-8.2 [facility] Comment on above: Performed By: #### 2 4323-8 ####IRVIN MUNGUIA ([id number])[facility] ([facility])[address] [place] [address] 55560 Sodium [Moles/Vol] 137 mmol/L Normal 136-145 [facility] Comment on above: Performed By: #### 2 4323-8 ####IRVIN MUNGUIA ([id number])[facility] ([facility])[address] [place] [address] Urea nitrogen [Mass/Vol] 12 mg/dL Normal 6-23 [facility] Comment on above: Performed By: #### 2 4323-8 ####IRVIN MUNGUIA ([id number])[facility] ([facility])[address] [place], [place] [address] Urinalysis complete W Reflex Culture panel (U)on 06-04-2024 Appearance (U) Clear Normal Clear [facility] Comment on above: Performed By: #### 5 8077-9 ####IRVIN MUNGUIA ([id number])[facility] ([facility])[address] [place] [address] 95670 Bilirubin (U) [Mass/Vol] Negative Normal NEGATIVE [facility] Comment on above: Performed By: #### 5 8077-9 ####IRVIN MUNGUIA ([id number])[facility] ([facility])[address] [place] [address] 88617 Color (U) Light-Yellow Normal Light-Yellow , Yellow, Dark-Yellow [facility] Comment on above: Performed By: #### 5 8077-9 ####IRVIN MUNGUIA ([id number])[facility])[address] [place] [address] 60750 Glucose Auto test strip (U) [Mass/Vol] Normal Normal Normal [facility] Comment on above: Performed By: #### 5 8077-9 ####IRVIN MUNGUIA ([id number])[facility] ([facility])[address] [place] [address] 04843 Ketones (U) [Mass/Vol] Negative Normal NEGATIVE [facility] Comment on above: Performed By: #### 5 8077-9 ####IRVIN MUNGUIA ([id number])[facility])[address] [place] [address] 28342 Leukocyte esterase Auto test strip Ql (U) Negative Normal NEGATIVE [facility] Comment on above: Performed By: #### 5 8077-9 ####IRVIN MUNGUIA ([id number])[facility] ([facility])[address] [place], [place] [address] Nitrite Auto test strip Ql (U) Negative Normal NEGATIVE [facility] Comment on above: Performed By: #### 5 8077-9 ####IRVIN MUNGUIA ([id number])[facility])[address] [place] [address] 53811 pH (U) 7.0 [pH] Normal 5.0, 5.5, 6.0, 6.5, 7.0, 7.5, 8.0 [facility] Comment on above: Performed By: #### 5 8077-9 ####IRVIN MUNGUIA ([id number])[facility])[address] [place] [address] 08489 Protein (U) [Mass/Vol] Negative Normal NEGATIVE, 10 (TRACE), 20 (TRACE) [facility] Comment on above: Performed By: #### 5 8077-9 ####IRVIN MUNGUIA ([id number])[facility])[address] [place] [address] 06124 RBC (U) [#/Vol] Negative Normal NEGATIVE [facility] Comment on above: Performed By: #### 5 8077-9 ####IRVIN MUNGUIA ([id number])[facility] ([facility])[address] [place], [place] [address] Specific gravity (U) [Rel density] 1.012 Normal 1.005-1.035 [facility] Comment on above: Performed By: #### 5 8077-9 ####IRVIN MUNGUIA ([id number])[facility])[address] [place], [place] [address] Urobilinogen (U) [Mass/Vol] Normal Normal Normal [facility] Comment on above: Performed By: #### 5 8077-9 ####IRVIN MUNGUIA ([id number])[facility] ([facility])[address] [place] [address] CNOVon 05-31-2024 CNOV Office Visit (OBGYWM ) MATYDOROTHEA ([id number]) 1975 F Date Time Provider Department 05/31/24 3:20 PM LYNN MAIER OBGYWAbdoulaye During your visit today, we recorded the following information about you: Blood pressure Weight 124/82 104.8 kg Lynn Maier MD 05/31/2024 3:36 PM Signed The sensitive examination was discussed with the Patient or Patient's Authorized Chain Hoist Operator. As applicable, any other physician, advance practice provider, medical student, or other health professional student that will be observing or involved in the sensitive examination for educational or training purposes was discussed with the Patient or Authorized Chain Hoist Operator. The Patient or Authorized Chain Hoist Operator has agreed to proceed with the sensitive examination. (Sensitive examination includes inspection and/or palpation of the breasts, pelvis, prostate and anorectal regions) Overhead Foreman offered: Patient declines. Dorothea Rutledge is a 48 year old female who presents for problem visit bleeding perineal lesion for 4 year(s). HPI: lesion at vaginal opening that is painful and bleeds with intercourse. Has been present for at least 4 years. Not sure if its larger. Is currently taking keflex for a UTI. Usually gets a yeast infection with antibiotics OB History No obstetric history on file. 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 LMP: Hysterectomy Age at Menarche: Age at First : Age at Menopause: 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 Comments: Sexual Activity: Yes; Male Contraception: Surgical PAST MEDICAL HISTORY Diagnosis Date Abnormal LFTs Anxiety Common bile duct stone CVA (cerebral infarction) Depression DVT (deep venous thrombosis) (HCC) Factor V Leiden (HCC) HLD (hyperlipidemia) HTN (hypertension) Right upper quadrant pain PAST SURGICAL HISTORY Procedure Laterality Date APPENDECTOMY DELIVERY ONLY , low transverse and horizontal and vertical CHOLECYSTECTOMY Cholecystectomy COLONOSCOPY FLX DX W/COLLJ SPEC WHEN PFRMD Colonoscopy ERCP DX COLLECTION SPECIMEN BRUSHING/WASHING 06/11/15 Cholangiopancreatograph y (ERCP) inpt WC ESOPHAGOGASTRODUODENOSC OPY TRANSORAL DIAGNOSTIC EGD [facility] FILTER TONSILLECTOMY HX TOTAL ABDOMINAL HYSTERECT W/WO RMVL TUBE OVARY Hysterectomy, NOÉ FAMILY HISTORY Problem Relation Age of Onset None Mother None Father None Brother None Sister Social History Tobacco Use Smoking status: Former Smokeless tobacco: Never Vaping Use Vaping status: current everyday user Current Outpatient Medications Medication Sig Ascorbic Acid (VITAMIN C) 1,000 mg tablet Take 1 tablet by mouth daily at bedtime. furosemide (LASIX) 40 mg tablet Take 40 mg by mouth once daily. metoprolol tartrate, short acting, (LOPRESSOR) 25 mg tablet Take 25 mg by mouth twice daily. Methenamine Hippurate (HIPREX) 1 gram tablet Take 1 g by mouth once daily. linaCLOtide (LINZESS) 290 mcg capsule Take 290 mcg by mouth once daily. ondansetron (ZOFRAN) 4 mg tablet Take 4 mg by mouth every 8 hours as needed for nausea/vomiting. nitrofurantoin monohydrate and macrocrystal (MACROBID) 100 mg capsule Take 25 mg by mouth once daily. potassium chloride 20 mEq TbER Take 20 mEq by mouth twice daily. venlafaxine ER (EFFEXOR XR) 150 mg 24 hr capsule Take 150 mg by mouth once daily. VALACYCLOVIR HCL (VALTREX ORAL) Take 500 mg by mouth once daily. fluconazole (DIFLUCAN) 150 mg tablet Take 1 tablet by mouth every 72 hours for 2 doses. clonazePAM (KLONOPIN) 0.5 mg tablet Take one tablet as needed for prolonged convulsive seizure or cluster or 3 or more seizures in 24 hours. Do not exceed more than 1 tablet per day. 10 tablets per 30 days. lacosamide (VIMPAT) 100 mg tab 1 tab in am and 2 tabs in pm zonisamide (ZONEGRAN) 100 mg capsule Take 4 capsules by mouth once daily. 4 capsules a day ondansetron orally disintegrating (ZOFRAN ODT) 4 mg disintegrating tablet Take 1 tablet by mouth every 6 hours as needed for nausea/vomiting. hydrOXYzine HCl (ATARAX) 50 mg tablet Take 50 mg by mouth four times daily. (Patient not taking: Reported on 05/31/2024) dicyclomine (BENTYL) 20 mg tablet Take 20 mg by mouth four times daily as needed. (Patient not taking: Reported on 05/31/2024) magnesium oxide 400 mg magnesium tab Take 1 tablet by mouth once daily. (Patient not taking: Reported on 05/31/2024) ZUBSOLV 8.6-2.1 mg subl Dissolve 2 tablets under the tongue once daily. No current facility-administered medications for this visit. Allergies As of Date: 05/31/2024 Allergen Noted Reaction MORPHINE 04/12/2016 Other: See Comments NEURONTIN [GABAPENTIN] 10/23/2013 Intolerance PENICILLINS 10/23/2013 Intolerance SULFA (SULFONAMIDE ANTIBIOTICS) 10/23/2013 Intolerance Fully Assessed 05/31/2024 REVIEW OF SYSTEMS Abdomen: No bloating, early satiety, indigestion, or increased flatulence. No abdominal pain, n (more content not included)... Normal [facility] SURGICAL PATHOLOGYon 024 CASE REPORT Normal [facility] [facility] Comment on above: Order Comment: Speci men Type: TISSUE SPECIMEN Ordering Facility: [facility] Address: [address] [place] [address] Result Comment: [facility] Pathology Report Case: [id number] Authorizing Provider: Lynn Maier MD Collected: 05/31/2024 03:32 PM Ordering Location: OB/Gynecology Received: 05/31/2024 04:52 PM Pathologist: Theodore Salazar MD Specimen: Perineum, Biopsy Performed By: #### S #### [facility] CLIA [id number] [address] [place] [address] [place] [facility] CLIA [id number] [address] [place] [address] CLINICAL HISTORY bleeding skin tag Normal [facility] Comment on above: Order Comment: Speci men Type: TISSUE SPECIMEN Ordering Facility: [facility] Address: [address] [place] [address] Performed By: #### S #### [facility] CLIA [id number] [address] [place] [address] STATES OF [facility] CLIA [id number] [address] [place] [address] OF [place] [facility] Normal [facility] Comment on above: Order Comment: Speci men Type: TISSUE SPECIMEN Ordering Facility: [facility] Address: [address] [place] [address] Result Comment: Jane neum, excision: - Intradermal nevus. MJM 06/04/2024 Performed By: #### S #### [facility] CLIA [id number] [address] [place] [address] OF [facility] CLIA [id number] [address] [place] [address] OF [place] [facility] Normal [facility] Comment on above: Order Comment: Speci men Type: TISSUE SPECIMEN Ordering Facility: [facility] Address: [address] [place] [address] Result Comment: Diag nostic interpretation performed at [facility], [address] [place] [address] CLIA# [id number] [employer] Rep[employer]r: Theodore Salazar M.D. Performed By: #### S #### [facility] CLIA [id number] [address] [place] [address] STATES OF [facility] CLIA [id number] [address] [place] [address] [place] GROSS DESCRIPTION Normal [facility] Comment on above: Order Comment: Speci men Type: TISSUE SPECIMEN Ordering Facility: [facility] Address: [address] [place] [address] Result Comment: A. P erineum, Biopsy Received in formalin is a segment of duron wrinkled rubbery skin measuring 0.9 x 0.4 x 0.5 cm. The specimen is bisected. Totally submitted in one cassette. Gross examination performed at [facility], [address] [place] [address] FFS 06/01/2024 1:56 AM Performed By: #### S #### [facility] CLIA [id number] [address] [place] [address] [place] [facility] CLIA [id number] [address] [place] [address] [place] CBC W Auto Differential pane l (Bld)on 05-30-2024 Basophils (Bld) [#/Vol] 0.05 x10*3/uL Normal 0.00-0.10 [facility] Comment on above: Performed By: #### 5 7021-8 #### ALVARO CROUCH ([id number]) [facility] ([facility]) [address] [place] [address] Basophils/100 WBC (Bld) 0.6 % Normal 0.0-2.0 [facility] Comment on above: Performed By: #### 5 7021-8 #### ALVARO CROUCH ([id number]) [facility] ([facility]) [address] [place] [address] Eosinophils (Bld) [#/Vol] 0.15 x10*3/uL Normal 0.00-0.70 [facility] Comment on above: Performed By: #### 5 7021-8 #### ALVARO CROUCH ([id number]) [facility] ([facility]) [address] [place] [address] Eosinophils/100 WBC (Bld) 1.8 % Normal 0.0-6.0 [facility] Comment on above: Performed By: #### 5 7021-8 #### ALVARO CROUCH ([id number]) [facility] ([facility]) [address] [place] [address] Erythrocyte distribution width (RBC) [Ratio] 15.8 % High 11.5-14.5 [facility] Comment on above: Performed By: #### 5 7021-8 #### ALVARO CROUCH ([id number]) [facility] ([facility]) [address] [place] [address] Hematocrit (Bld) [Volume fraction] 40.2 % Normal 36.0-46.0 [facility] Comment on above: Performed By: #### 5 7021-8 #### ALVARO CROUCH ([id number]) [facility] ([facility]) [address] [place] [address] Hemoglobin (Bld) [Mass/Vol] 12.6 g/dL Normal 12.0-16.0 [facility] Comment on above: Performed By: #### 5 7021-8 #### ALVARO CROUCH ([id number]) [facility] ([facility]) [address] [place] [address] Immature granulocytes (Bld) [#/Vol] 0.08 x10*3/uL Normal 0.00-0.70 [facility] Comment on above: Performed By: #### 5 7021-8 #### ALVARO CROUCH ([id number]) [facility] ([facility]) [address] [place] [address] Immature granulocytes/100 WBC (Bld) 1.0 % High 0.0-0.9 [facility] Comment on above: Result Comment: Debbie ture Granulocyte Count (IG) includes promyelocytes, myelocytes and metamyelocytes but does not include bands. Percent differential counts (%) should be interpreted in the context of the absolute cell counts (cells/UL). Performed By: #### 5 7021-8 #### ALVARO CROUCH ([id number]) [facility] ([facility]) [address] [place] [address] Lymphocytes (Bld) [#/Vol] 1.96 x10*3/uL Normal 1.20-4.80 [facility] Comment on above: Performed By: #### 5 7021-8 #### ALVARO CROUCH ([id number]) [facility] ([facility]) [address] [place] [address] Lymphocytes/100 WBC (Bld) 23.8 % Normal 13.0-44.0 [facility] Comment on above: Performed By: #### 5 7021-8 #### ALVARO CROUCH ([id number]) [facility] ([facility]) [address] [place] [address] MCH (RBC) [Entitic mass] 26.9 pg Normal 26.0-34.0 [facility] Comment on above: Performed By: #### 5 7021-8 #### ALVARO CROUCH ([id number]) [facility] ([facility]) [address] [place] [address] MCHC (RBC) [Mass/Vol] 31.3 g/dL Low 32.0-36.0 [facility] Comment on above: Performed By: #### 5 7021-8 #### ALVARO CROUCH ([id number]) [facility] ([facility]) [address] [place] [address] MCV (RBC) [Entitic vol] 86 fL Normal 80-100 [facility] Comment on above: Performed By: #### 5 7021-8 #### ALVARO CROUCH ([id number]) [facility] ([facility]) [address] [place] [address] Monocytes (Bld) [#/Vol] 0.43 x10*3/uL Normal 0.10-1.00 [facility] Comment on above: Performed By: #### 5 7021-8 #### ALVARO CROUCH ([id number]) [facility] ([facility]) [address] [place] [address] Monocytes/100 WBC (Bld) 5.2 % Normal 2.0-10.0 [facility] Comment on above: Performed By: #### 5 7021-8 #### ALVARO CROUCH ([id number]) [facility] ([facility]) [address] [place] [address] Neutrophils (Bld) [#/Vol] 5.56 x10*3/uL Normal 1.20-7.70 [facility] Comment on above: Result Comment: Perc ent differential counts (%) should be interpreted in the context of the absolute cell counts (cells/uL). Performed By: #### 5 7021-8 #### ALVARO CROUCH ([id number]) [facility] ([facility]) [address] [place] [address] Neutrophils/100 WBC (Bld) 67.6 % Normal 40.0-80.0 [facility] Comment on above: Performed By: #### 5 7021-8 #### ALVARO CROUCH ([id number]) [facility] ([facility]) [address] [place] [address] Nucleated RBC/100 WBC (Bld) [Ratio] 0.0 /100 WBCs Normal 0.0-0.0 [facility] Comment on above: Performed By: #### 5 7021-8 #### ALVARO CROUCH ([id number]) [facility] ([facility]) [address] [place] [address] Platelets (Bld) [#/Vol] 293 x10*3/uL Normal 150-450 [facility] Comment on above: Performed By: #### 5 7021-8 #### ALVARO CROUCH ([id number]) [facility] ([facility]) [address] [place] [address] RBC (Bld) [#/Vol] 4.69 x10*6/uL Normal 4.00-5.20 [facility] Comment on above: Performed By: #### 5 7021-8 #### ALVARO CROUCH ([id number]) [facility] ([facility]) [address] [place] [address] WBC (Bld) [#/Vol] 8.2 x10*3/uL Normal 4.4-11.3 [facility] Comment on above: Performed By: #### 5 7021-8 #### ALVARO MIKO ([id number]) [facility] ([facility]) [address] [place] [address] CT ABDOMEN PELVIS W IV CONTR Reny 05-30-2024 CT ABDOMEN PELVIS W IV CONTRAST STUDY: CT Angiogram of the Chest, CT Abdomen and Pelvis with IV Contrast; 05/30/2024, 1520 INDICATION: Sudden onset of left sided abdominal pain radiating around to back with nausea. COMPARISON: XR chest 05/30/2024, CT abd 05/15/2024, 04/12/2024, CTA chest 02/27/2024. ACCESSION NUMBER(S): [id number], [id number] ORDERING CLINICIAN: SARAH HO TECHNIQUE: CTA of the chest was performed following rapid injection of intravenous contrast. Images are reviewed and processed at a workstation according to the CT angiogram protocol with 3-D and/or MIP post processing imaging generated. CT of the abdomen and pelvis was performed with intravenous contrast. Omnipaque 350, 75 mL was administered intravenously; positive oral contrast was given. Automated mA/kV exposure control was utilized and patient examination was performed in strict accordance with principles of ALARA. FINDINGS: No filling defects are seen in the main pulmonary artery, left or right pulmonary arteries to indicate a central embolus. Evaluation of the subsegmental branches are limited due to breathing motion on part of the patient. Subsegmental emboli cannot be excluded. There is bilateral central groundglass disease, suggestive of vascular congestion. No consolidative infiltrate is noted. There are no pleural effusions. There is no evidence of a pneumothorax. No filling defects are seen within the trachea or mainstem bronchi. No enlarged lymph nodes are seen in the mediastinal or hilar regions. There is no pericardial effusion. Coronary artery calcifications are not visualized. There is no evidence of aneurysmal dilatation of the ascending aorta, aortic arch, or descending thoracic aorta. Degenerative changes are seen within the thoracic spine. No early filling veins are noted to indicate an arteriovenous malformation. There is decreased attenuation of the liver, indicative of fatty infiltration. There is increased infiltration seen in the medial edge of segments 5 and 8. The portal and hepatic veins are patent. There is no intrahepatic hepatic ductal dilatation. Cholecystectomy clips are present. No acute findings are seen within the spleen. There is atrophy of the pancreas. No inflammatory changes are noted. No adrenal nodule is noted. No acute findings are seen within either kidney. An inferior vena cava filter is present, with prominent narrowing of the IVC. No aneurysmal dilatation is noted within the abdominal aorta. No dilated loops of small bowel or colon are visualized. There is a prominent amount of stool seen throughout the colonic loops. There appears to be probable narrowing of the proximal sigmoid colon(Series 502, Image 52). While this may be secondary to peristalsis, an underlying mass cannot be excluded. There is no evidence for free intraperitoneal air. The appendix is not visualized. No inflammatory changes are seen adjacent to the cecum. No enlarged lymph nodes are seen within the pelvic sidewalls, iliac chains, or retroperitoneum. Subcutaneous nodules are seen in the right and left lower quadrant, most likely injection granulomas. No prominent edema is seen within the psoas musculature. No compression fracture visualized within the lumbar spine. There continues be mild stranding of the central mesentery, indicative of panniculitis. No enlarged lymph nodes are noted. IMPRESSION: CHEST: 1. No evidence of a central pulmonary embolus. Evaluation of the subsegmental branches are limited due to breathing motion artifact. Subsegmental emboli cannot be excluded. 2. Bilateral central groundglass disease, indicative of vascular congestion. ABDOMEN/PELVIS: 1. Prominent amount of stool, with suspected narrowing of the proximal sigmoid colon. While this may be secondary to peristalsis, an underlying mass cannot be excluded. Correlation with colonoscopy is recommended. 2. Mild central mesenteric panniculitis. Please note underlying lymphoma cannot be excluded on the spaces. 3. Fatty infiltration of the liver. Signed by Richard Hardy MD [facility] CT ANGIO CHEST FOR PULMONARY EMBOLISMon 05-30-2024 CT ANGIO CHEST FOR PULMONARY EMBOLISM STUDY: CT Angiogram of the Chest, CT Abdomen and Pelvis with IV Contrast; 05/30/2024, 1520 INDICATION: Sudden onset of left sided abdominal pain radiating around to back with nausea. COMPARISON: XR chest 05/30/2024, CT abd 05/15/2024, 04/12/2024, CTA chest 02/27/2024. ACCESSION NUMBER(S): [id number], [id number] ORDERING CLINICIAN: SARAH HO TECHNIQUE: CTA of the chest was performed following rapid injection of intravenous contrast. Images are reviewed and processed at a workstation according to the CT angiogram protocol with 3-D and/or MIP post processing imaging generated. CT of the abdomen and pelvis was performed with intravenous contrast. Omnipaque 350, 75 mL was administered intravenously; positive oral contrast was given. Automated mA/kV exposure control was utilized and patient examination was performed in strict accordance with principles of ALARA. FINDINGS: No filling defects are seen in the main pulmonary artery, left or right pulmonary arteries to indicate a central embolus. Evaluation of the subsegmental branches are limited due to breathing motion on part of the patient. Subsegmental emboli cannot be excluded. There is bilateral central groundglass disease, suggestive of vascular congestion. No consolidative infiltrate is noted. There are no pleural effusions. There is no evidence of a pneumothorax. No filling defects are seen within the trachea or mainstem bronchi. No enlarged lymph nodes are seen in the mediastinal or hilar regions. There is no pericardial effusion. Coronary artery calcifications are not visualized. There is no evidence of aneurysmal dilatation of the ascending aorta, aortic arch, or descending thoracic aorta. Degenerative changes are seen within the thoracic spine. No early filling veins are noted to indicate an arteriovenous malformation. There is decreased attenuation of the liver, indicative of fatty infiltration. There is increased infiltration seen in the medial edge of segments 5 and 8. The portal and hepatic veins are patent. There is no intrahepatic hepatic ductal dilatation. Cholecystectomy clips are present. No acute findings are seen within the spleen. There is atrophy of the pancreas. No inflammatory changes are noted. No adrenal nodule is noted. No acute findings are seen within either kidney. An inferior vena cava filter is present, with prominent narrowing of the IVC. No aneurysmal dilatation is noted within the abdominal aorta. No dilated loops of small bowel or colon are visualized. There is a prominent amount of stool seen throughout the colonic loops. There appears to be probable narrowing of the proximal sigmoid colon(Series 502, Image 52). While this may be secondary to peristalsis, an underlying mass cannot be excluded. There is no evidence for free intraperitoneal air. The appendix is not visualized. No inflammatory changes are seen adjacent to the cecum. No enlarged lymph nodes are seen within the pelvic sidewalls, iliac chains, or retroperitoneum. Subcutaneous nodules are seen in the right and left lower quadrant, most likely injection granulomas. No prominent edema is seen within the psoas musculature. No compression fracture visualized within the lumbar spine. There continues be mild stranding of the central mesentery, indicative of panniculitis. No enlarged lymph nodes are noted. IMPRESSION: CHEST: 1. No evidence of a central pulmonary embolus. Evaluation of the subsegmental branches are limited due to breathing motion artifact. Subsegmental emboli cannot be excluded. 2. Bilateral central groundglass disease, indicative of vascular congestion. ABDOMEN/PELVIS: 1. Prominent amount of stool, with suspected narrowing of the proximal sigmoid colon. While this may be secondary to peristalsis, an underlying mass cannot be excluded. Correlation with colonoscopy is recommended. 2. Mild central mesenteric panniculitis. Please note underlying lymphoma cannot be excluded on the spaces. 3. Fatty infiltration of the liver. Signed by Richard Hardy MD [facility] Coagulation tissue factor in ducedon 05-30-2024 PT Coag (PPP) [Time] 23.1 s High 9.8-12.8 [facility] Comment on above: Performed By: #### 5 902-2 #### ALVARO CROUCH ([id number]) [facility] ([facility]) [address] [place] [address] Comprehensive metabolic 2000 panelon 05-30-2024 Albumin BCP dye [Mass/Vol] 4.3 g/dL Normal 3.4-5.0 [facility] Comment on above: Performed By: #### 5 7021-8 #### ALVARO CROUCH ([id number]) [facility] ([facility]) [address] [place] [address] ALP [Catalytic activity/Vol] 121 U/L High 33-110 [facility] Comment on above: Performed By: #### 5 7021-8 #### ALVARO CROUCH ([id number]) [facility] ([facility]) [address] [place] [address] ALT With P-5'-P [Catalytic activity/Vol] 86 U/L High 7-45 [facility] Comment on above: Result Comment: Evelyn ents treated with Sulfasalazine may generate falsely decreased results for ALT. Performed By: #### 5 7021-8 #### ALVARO CROUCH ([id number]) [facility] ([facility]) [address] [place] [address] Anion gap [Moles/Vol] 17 mmol/L Normal 10-20 [facility] Comment on above: Performed By: #### 5 7021-8 #### ALVARO CROUCH ([id number]) [facility] ([facility]) [address] [place] [address] AST With P-5'-P [Catalytic activity/Vol] 53 U/L High 9-39 [facility] Comment on above: Performed By: #### 5 7021-8 #### ALVARO CROUCH ([id number]) [facility] ([facility]) [address] [place] [address] Bilirubin [Mass/Vol] 0.3 mg/dL Normal 0.0-1.2 [facility] Comment on above: Performed By: #### 5 7021-8 #### ALVARO CROUCH ([id number]) [facility] ([facility]) [address] [place] [address] Calcium [Mass/Vol] 9.5 mg/dL Normal 8.6-10.3 [facility] Comment on above: Performed By: #### 5 7021-8 #### ALVARO CROUCH ([id number]) [facility] ([facility]) [address] [place] [address] Chloride [Moles/Vol] 98 mmol/L Normal 98-107 [facility] Comment on above: Performed By: #### 5 7021-8 #### ALVARO CROUCH ([id number]) [facility]) [address] [place] [address] CO2 [Moles/Vol] 25 mmol/L Normal 21-[address] [facility] Comment on above: Performed By: #### 5 7021-8 #### ALVARO CROUCH ([id number]) [facility]) [address] [place] [address] Creatinine [Mass/Vol] 0.84 mg/dL Normal 0.50-1.05 [facility] Comment on above: Performed By: #### 5 7021-8 #### ALVARO CROUCH ([id number]) [facility]) [address] [place] [address] Glomerular filtration rate/1.73 sq M.predicted 85 mL/min/1.73m*2 Normal >60 [facility] Comment on above: Result Comment: Calc ulations of estimated GFR are performed using the 2020 CKD-EPI Study Refit equation without the race variable for the IDMS-Traceable creatinine methods. https://jasn.asnjournals.org/content/early//ASN.126180 5534 Performed By: #### 5 7021-8 #### ALVARO CROUCH ([id number]) [facility]) [address] [place] [address] Glucose [Mass/Vol] 174 mg/dL High 74-99 [facility] Comment on above: Performed By: #### 5 7021-8 #### ALVARO CROUCH ([id number]) [facility]) [address] [place] [address] Potassium [Moles/Vol] 3.8 mmol/L Normal 3.5-5.3 [facility] Comment on above: Performed By: #### 5 7021-8 #### ALVARO CROUCH ([id number]) [facility]) [address] [place] [address] Protein [Mass/Vol] 7.6 g/dL Normal 6.4-8.2 [facility] Comment on above: Performed By: #### 5 7021-8 #### ALVARO CROUCH ([id number]) [facility]) [address] [place] [address] Sodium [Moles/Vol] 136 mmol/L Normal 136-145 [facility] Comment on above: Performed By: #### 5 7021-8 #### ALVARO CROUCH ([id number]) [facility]) [address] [place] [address] Urea nitrogen [Mass/Vol] 22 mg/dL Normal 6-23 [facility] Comment on above: Performed By: #### 5 7021-8 #### ALVARO CROUCH ([id number]) [facility]) [address] [place] [address] ECG 12-LEADon 05-30-2024 ECG 12-LEAD Ventricular Rate 78 Atrial Rate 78 P-R Interval 154 QRS Duration 90 Q-T Interval 410 QTC Calculation(Bazett) 467 P [place] 15 R [place] 29 T [place] 35 QRS Count 13 Q Onset 223 P Onset 146 P Offset 199 T Offset 428 QTC Fredericia 447 Diagnosis Normal sinus rhythm Normal ECG When compared with ECG of 17-MAR-2024 16:07, No significant change was found See ED provider note for full interpretation and clinical correlation Confirmed by Hemalatha Lange ([id number]) on 06/07/2024 11:29:01 AM Normal [facility] Natriuretic peptide B [Mass/ Vol]on 05-30-2024 Natriuretic peptide B (Bld) [Mass/Vol] 14 pg/mL Normal 0-99 [facility] Comment on above: Order Comment: <100 pg/mL - Heart failure unlikely 100-299 pg/mL - Intermediate probability of acute heart failure exacerbation. Correlate with clinical context and patient history. >=300 pg/mL - Heart Failure likely. Correlate with clinical context and patient history. BNP testing is performed using different testing methodology at [facility] than at other [facility]. Direct result comparisons should only be made within the same method. Performed By: #### 3 0934-4 #### ALVARO CROUCH ([id number]) [facility] ([facility]) [address] [place] [address] PT Coag (PPP) [Time]on 05-30 INR Coag (PPP) [Relative time] 2.0 High 0.9-1.1 [facility] Comment on above: Performed By: #### 5 902-2 #### ALVARO CROUCH ([id number]) [facility] ([facility]) [address] [place] [address] Triacylglycerol lipaseon Lipase [Catalytic activity/Vol] 61 U/L Normal 9-82 [facility] Comment on above: Order Comment: Venip uncture immediately after or during the administration of Metamizole may lead to falsely low results. Testing should be performed immediately prior to Metamizole dosing. Performed By: #### 5 7021-8 #### ALVARO CROUCH ([id number]) [facility] ([facility]) [address] [place] [address] Troponin I.cardiac panelon 0 05-30-2024 Tropinin I.cardiac panel High sensitivity method <3 Normal 0-13 [facility] Comment on above: Order Comment: Less than 99th percentile of normal range cutoff-Female and children under 18 years old <14 ng/L; Male <21 ng/L: NegativeRepeat testing should be performed if clinically indicated.Female and children under 18 years old 14-50 ng/L; Male 21-50 ng/L:Consistent with possible cardiac damage and possible increased clinicalrisk. Serial measurements may help to assess extent of myocardial damage.>50 ng/L: Consistent with cardiac damage, increased clinical risk andmyocardial infarction. Serial measurements may help assess extent ofmyocardial damage.NOTE: Children less than 1 year old may have higher baseline troponinlevels and results should be interpreted in conjunction with the overallclinical context.NOTE: [facility]rop[facility] testing [facility]. Direct result comparisons should onlybe made within the same method. Performed By: #### 5 7021-8 #### ALVARO CROUCH ([id number]) [facility] ([facility]) [address] [place] [address] Urinalysis complete W Reflex Culture panel (U)on 05-30-2024 Appearance (U) Clear Normal Clear [facility] Comment on above: Performed By: #### 5 8077-9 #### ALVARO CROUCH ([id number]) [facility] ([facility]) [address] [place] [address] Bilirubin (U) [Mass/Vol] Negative Normal NEGATIVE [facility] Comment on above: Performed By: #### 5 8077-9 #### ALVARO CROUCH ([id number]) [facility] ([facility]) [address] [place] [address] Color (U) Yellow Normal Light-Yellow , Yellow, Dark-Yellow [facility] Comment on above: Performed By: #### 5 8077-9 #### ALVARO CROUCH ([id number]) [facility] ([facility]) [address] [place] [address] Glucose Auto test strip (U) [Mass/Vol] Normal Normal Normal [facility] Comment on above: Performed By: #### 5 8077-9 #### ALVARO CROUCH ([id number]) [facility] ([facility]) [address] [place] [address] Ketones (U) [Mass/Vol] Negative Normal NEGATIVE [facility] Comment on above: Performed By: #### 5 8077-9 #### ALVARO CROUCH ([id number]) [facility] ([facility]) [address] [place] [address] Leukocyte esterase Auto test strip Ql (U) Negative Normal NEGATIVE [facility] Comment on above: Performed By: #### 5 8077-9 #### ALVARO CROUCH ([id number]) [facility] ([facility]) [address] [place] [address] Nitrite Auto test strip Ql (U) Negative Normal NEGATIVE [facility] Comment on above: Performed By: #### 5 8077-9 #### ALVARO CROUCH ([id number]) [facility] ([facility]) [address] [place] [address] pH (U) 5.5 [pH] Normal 5.0, 5.5, 6.0, 6.5, 7.0, 7.5, 8.0 [facility] Comment on above: Performed By: #### 5 8077-9 #### ALVARO CROUHC ([id number]) [facility] ([facility]) [address] [place] [address] Protein (U) [Mass/Vol] Negative Normal NEGATIVE, 10 (TRACE), 20 (TRACE) [facility] Comment on above: Performed By: #### 5 8077-9 #### ALVARO CROUCH ([id number]) [facility] ([facility]) [address] [place] [address] RBC (U) [#/Vol] Negative Normal NEGATIVE [facility] Comment on above: Performed By: #### 5 8077-9 #### ALVARO MIKO ([id number]) [facility] ([facility]) [address] [place] [address] Specific gravity (U) [Rel density] 1.015 Normal 1.005-1.035 [facility] Comment on above: Performed By: #### 5 8077-9 #### ALVARO MIKO ([id number]) [facility] ([facility]) [address] [place] [address] Urobilinogen (U) [Mass/Vol] Normal Normal Normal [facility] Comment on above: Performed By: #### 5 8077-9 #### ALVARO MIKO ([id number]) [facility] ([facility]) [address] [place] [address] XR CHEST 2 VIEWSon XR CHEST 2 VIEWS STUDY: Chest Radiographs; 05/30/2024 2:15 PM INDICATION: Shortness of breath. COMPARISON: XR chest 05/15/2024 ACCESSION NUMBER(S): [id number] ORDERING CLINICIAN: SARAH HO TECHNIQUE: Frontal and lateral chest. FINDINGS: CARDIOMEDIASTINAL SILHOUETTE: Cardiomediastinal silhouette is normal in size and configuration. LUNGS: Lungs are clear. Right chest port ABDOMEN: [place] IVC filter. BONES: Old right seventh and eighth rib fractures. IMPRESSION: No regions of airspace consolidation. Signed by Theodore Fournire MD Normal [facility] Bacteria identifiedon 2023 Bacteria identified Cx Nom (U) Abnormal [facility] Comment on above: Performed By: #### 6 30-4 ####ANDI Cotter ([id number])[facility] ([facility])[address] [place] [address] CBC W Auto Differential pane l (Bld)on 05-28-2024 Basophils (Bld) [#/Vol] 0.06 x10*3/uL Normal 0.00-0.10 [facility] Comment on above: Order Comment: [place] cheyenne EDTA Performed By: #### 5 7021-8 ####IRVIN MUNGUIA ([id number])[facility] ([facility])[address] [place] [address] Basophils/100 WBC (Bld) 0.8 % Normal 0.0-2.0 [facility] Comment on above: Order Comment: [place] che[place] EDTA Performed By: #### 5 7021-8 ####IRVIN MUNGUIA ([id number])[facility] ([facility])[address] [place] [address] 26303 Eosinophils (Bld) [#/Vol] 0.13 x10*3/uL Normal 0.00-0.70 [facility] Comment on above: Order Comment: [place] che[place] EDTA Performed By: #### 5 7021-8 ####IRVIN MUNGUIA ([id number])[facility] ([facility])[address] [place] [address]166 Eosinophils/100 WBC (Bld) 1.7 % Normal 0.0-6.0 [facility] Comment on above: Order Comment: [place] che[place] EDTA Performed By: #### 5 7021-8 ####IRVIN MUNGUIA ([id number])[facility] ([facility])[address] [place] [address]781 Erythrocyte distribution width (RBC) [Ratio] 15.4 % High 11.5-14.5 [facility] Comment on above: Order Comment: [place] che[place] EDTA Performed By: #### 5 7021-8 ####IRVIN MUNGUIA ([id number])[facility] ([facility])[address] [place] [address] 88460 Hematocrit (Bld) [Volume fraction] 40.4 % Normal 36.0-46.0 [facility] Comment on above: Order Comment: [place] cheyenne EDTA Performed By: #### 5 7021-8 ####IRVIN MUNGUIA ([id number])[facility] ([facility])[address] [place] [address] 18912 Hemoglobin (Bld) [Mass/Vol] 12.7 g/dL Normal 12.0-16.0 [facility] Comment on above: Order Comment: [place] cheyenne EDTA Performed By: #### 5 7021-8 ####IRVIN MUNGUIA ([id number])[facility] ([facility])[address] [place] [address] 49787 Immature granulocytes (Bld) [#/Vol] 0.05 x10*3/uL Normal 0.00-0.70 [facility] Comment on above: Order Comment: [place] cheyenne EDTA Performed By: #### 5 7021-8 ####IRVIN MUNGUIA ([id number])[facility] ([facility])[address] [place] [address] 08235 Immature granulocytes/100 WBC (Bld) 0.6 % Normal 0.0-0.9 [facility] Comment on above: Order Comment: [place] cheyenne EDTA Result Comment: Debbie ture Granulocyte Count (IG) includes promyelocytes, myelocytes and metamyelocytes but does not include bands. Percent differential counts (%) should be interpreted in the context of the absolute cell counts (cells/UL). Performed By: #### 5 7021-8 ####IRVIN MUNGUIA ([id number])[facility] ([facility])[address] [place] [address] 38616 Lymphocytes (Bld) [#/Vol] 1.96 x10*3/uL Normal 1.20-4.80 [facility] Comment on above: Order Comment: [place]aven cheyenne EDTA Performed By: #### 5 7021-8 ####IRVIN MUNGUIA ([id number])[facility] ([facility])[address] [place] [address] 41261 Lymphocytes/100 WBC (Bld) 25.4 % Normal 13.0-44.0 [facility] Comment on above: Order Comment: Laven cheyenne EDTA Performed By: #### 5 7021-8 ####IRVIN MUNGUIA ([id number])[facility] ([facility])[address] [place] [address] 75508 MCH (RBC) [Entitic mass] 26.8 pg Normal 26.0-34.0 [facility] Comment on above: Order Comment: [place] cheyenne EDTA Performed By: #### 5 7021-8 ####IRVIN MUNGUIA ([id number])[facility] ([facility])[address] [place] [address] MCHC (RBC) [Mass/Vol] 31.4 g/dL Low 32.0-36.0 [facility] Comment on above: Order Comment: [place]aven cheyenne EDTA Performed By: #### 5 7021-8 ####IRVIN MUNGUIA ([id number])[facility] ([facility])[address] [place] [address] MCV (RBC) [Entitic vol] 85 fL Normal 80-100 [facility] Comment on above: Order Comment: Laven cheyenne EDTA Performed By: #### 5 7021-8 ####IRVIN MUNGUIA ([id number])[facility] ([facility])[address] [place] [address] Monocytes (Bld) [#/Vol] 0.39 x10*3/uL Normal 0.10-1.00 [facility] Comment on above: Order Comment: Laven cheyenne EDTA Performed By: #### 5 7021-8 ####IRVIN MUNGUIA ([id number])[facility] ([facility])[address] [place], [place] [address] Monocytes/100 WBC (Bld) 5.0 % Normal 2.0-10.0 [facility] Comment on above: Order Comment: Laven cheyenne EDTA Performed By: #### 5 7021-8 ####IRVIN MUNGUIA ([id number])[facility] ([facility])[address] [place] [address] 83501 Neutrophils (Bld) [#/Vol] 5.14 x10*3/uL Normal 1.20-7.70 [facility] Comment on above: Order Comment: Laven cheyenne EDTA Result Comment: Perc ent differential counts (%) should be interpreted in the context of the absolute cell counts (cells/uL). Performed By: #### 5 7021-8 ####IRVIN MUNGUIA ([id number])[facility] ([facility])[address] [place] [address] Neutrophils/100 WBC (Bld) 66.5 % Normal 40.0-80.0 [facility] Comment on above: Order Comment: Laven cheyenne EDTA Performed By: #### 5 7021-8 ####IRVIN MUNGUIA ([id number])[facility] ([facility])[address] [place] [address] 11402 Nucleated RBC/100 WBC (Bld) [Ratio] 0.0 /100 WBCs Normal 0.0-0.0 [facility] Comment on above: Order Comment: Laven cheyenne EDTA Performed By: #### 5 7021-8 ####IRVIN MUNGUIA ([id number])[facility] ([facility])[address] [place] [address] 04921 Platelets (Bld) [#/Vol] 311 x10*3/uL Normal 150-450 [facility] Comment on above: Order Comment: L[place] cheyenne EDTA Performed By: #### 5 7021-8 ####IRVIN MUNGUIA ([id number])[facility] ([facility])[address] [place] [address] 10485 RBC (Bld) [#/Vol] 4.74 x10*6/uL Normal 4.00-5.20 [facility] Comment on above: Order Comment: Laven cheyenne EDTA Performed By: #### 5 7021-8 ####IRVIN MUNGUIA ([id number])[facility] ([facility])[address] [place] [address] 03183 WBC (Bld) [#/Vol] 7.7 x10*3/uL Normal 4.4-11.3 [facility] Comment on above: Order Comment: Laven cheyenne EDTA Performed By: #### 5 7021-8 ####IRVIN MUNGUIA ([id number])[facility] ([facility])[address] [place] [address] ABDOMEN PELVIS W IV CONTR Reny 05-28-2024 CT ABDOMEN PELVIS W IV CONTRAST Normal [facility] Comprehensive metabolic 2000 panelon 05-28-2024 Albumin BCP dye [Mass/Vol] 4.5 g/dL Normal 3.4-5.0 [facility] Comment on above: Order Comment: Plasm a Serum Separator Performed By: #### 2 4323-8 ####IRVIN MUNGUIA ([id number])[facility] ([facility])[address] [place] [address] ALP [Catalytic activity/Vol] 124 U/L High 33-110 [facility] Comment on above: Order Comment: Plasm a Serum Separator Performed By: #### 2 4323-8 ####IRVIN MUNGUIA ([id number])[facility] ([facility])[address] [place] [address] 52046 ALT With P-5'-P [Catalytic activity/Vol] 71 U/L High 7-45 [facility] Comment on above: Order Comment: Plasm a Serum Separator Result Comment: Evelyn ents treated with Sulfasalazine may generate falsely decreased results for ALT. Performed By: #### 2 4323-8 ####IRVIN MUNGUIA ([id number])[facility] ([facility])[address] [place] [address] Anion gap [Moles/Vol] 15 mmol/L Normal 10-20 [facility] Comment on above: Order Comment: Plasm a Serum Separator Performed By: #### 2 4323-8 ####IRVIN MUNGUIA ([id number])[facility] ([facility])[address] [place] [address] 65027 AST With P-5'-P [Catalytic activity/Vol] 35 U/L Normal 9-39 [facility] Comment on above: Order Comment: Plasm a Serum Separator Performed By: #### 2 4323-8 ####IRVIN MUNGUIA ([id number])[facility] ([facility])[address] [place] [address] 27578 Bilirubin [Mass/Vol] 0.3 mg/dL Normal 0.0-1.2 [facility] Comment on above: Order Comment: Plasm a Serum Separator Performed By: #### 2 4323-8 ####IRVIN MUNGUIA ([id number])[facility] ([facility])[address] [place] [address] Calcium [Mass/Vol] 9.3 mg/dL Normal 8.6-10.3 [facility] Comment on above: Order Comment: Plasm a Serum Separator Performed By: #### 2 4323-8 ####IRVIN MUNGUIA ([id number])[facility] ([facility])[address] [place] [address] Chloride [Moles/Vol] 97 mmol/L Low 98-107 [facility] Comment on above: Order Comment: Plasm a Serum Separator Performed By: #### 2 4323-8 ####IRVIN MUNGUIA ([id number])[facility] ([facility])[address] [place] [address] 75353 CO2 [Moles/Vol] 25 mmol/L Normal 21-32 [facility] Comment on above: Order Comment: Plasm a Serum Separator Performed By: #### 2 4323-8 ####IRVIN MUNGUIA ([id number])[facility] ([facility])[address] [place] [address] 54566 Creatinine [Mass/Vol] 0.99 mg/dL Normal 0.50-1.05 [facility] Comment on above: Order Comment: Plasm a Serum Separator Performed By: #### 2 4323-8 ####IRVIN MUNGUIA ([id number])[facility] ([facility])[address] [place] [address] 47174 Glomerular filtration rate/1.73 sq M.predicted 70 mL/min/1.73m*2 Normal >60 [facility] Comment on above: Order Comment: Plasm a Serum Separator Result Comment: Calc ulations of estimated GFR are performed using the 2020 CKD-EPI Study Refit equation without the race variable for the IDMS-Traceable creatinine methods.https://jasn.asnjournals.org/content/early/ N.5550651328 Performed By: #### 2 4323-8 ####IRVIN MUNGUIA ([id number])[facility] ([facility])[address] [place] [address] 24981 Glucose [Mass/Vol] 334 mg/dL High 74-99 [facility] Comment on above: Order Comment: Plasm a Serum Separator Performed By: #### 2 4323-8 ####IRVIN MUNGUIA ([id number])[facility] ([facility])[address] [place] [address] 55617 Potassium [Moles/Vol] 4.0 mmol/L Normal 3.5-5.3 [facility] Comment on above: Order Comment: Plasm a Serum Separator Performed By: #### 2 4323-8 ####IRVIN MUNGUIA ([id number])[facility] ([facility])[address] [place] [address] 29042 Protein [Mass/Vol] 7.3 g/dL Normal 6.4-8.2 [facility] Comment on above: Order Comment: Plasm a Serum Separator Performed By: #### 2 4323-8 ####IRVIN MUNGUIA ([id number])[facility] ([facility])[address] [place] [address] 85058 Sodium [Moles/Vol] 133 mmol/L Low 136-145 [facility] Comment on above: Order Comment: Plasm a Serum Separator Performed By: #### 2 4323-8 ####IRVIN MUNGUIA ([id number])[facility] ([facility])[address] [place] [address] 16519 Urea nitrogen [Mass/Vol] 18 mg/dL Normal 6-23 [facility] Comment on above: Order Comment: Plasm a Serum Separator Performed By: #### 2 4323-8 ####IRVIN MUNGUIA ([id number])[facility] ([facility])[address] [place] [address] 85931 Glucose Test strip manual (B ld) [Mass/Vol]on 05-28-2024 Glucose [Mass/Vol] 311 mg/dL High 74-99 [facility] Comment on above: Performed By: #### 2 341-6 ####IRVIN MUNGUIA ([id number])[facility] ([facility])[address] [place] [address] 54475 Urinalysis complete W Reflex Culture panel (U)on 05-28-2024 Appearance (U) Clear Normal Clear [facility] Comment on above: Order Comment: OVER is reported when the result is greater than the clinically reportable range. Performed By: #### 5 8077-9 ####IRVIN MUNGUIA ([id number])[facility] ([facility])[address] [place] [address] 83207 Bilirubin (U) [Mass/Vol] Negative Normal NEGATIVE [facility] Comment on above: Order Comment: OVER is reported when the result is greater than the clinically reportable range. Performed By: #### 5 8077-9 ####IRVIN MUNGUIA ([id number])[facility] ([facility])[address] [place], [place] [address] Color (U) Yellow Normal Light-Yellow , Yellow, Dark-Yellow [facility] Comment on above: Order Comment: OVER is reported when the result is greater than the clinically reportable range. Performed By: #### 5 8077-9 ####IRVIN MUNGUIA ([id number])[facility] ([facility])[address] [place] [address] 19983 Glucose Auto test strip (U) [Mass/Vol] OVER (4+) Abnormal Normal [facility] Comment on above: Order Comment: OVER is reported when the result is greater than the clinically reportable range. Performed By: #### 5 8077-9 ####IRVIN MUNGUIA ([id number])[facility] ([facility])[address] [place] [address] 18016 Ketones (U) [Mass/Vol] Negative Normal NEGATIVE [facility] Comment on above: Order Comment: OVER is reported when the result is greater than the clinically reportable range. Performed By: #### 5 8077-9 ####IRVIN MUNGUIA ([id number])[facility] ([facility])[address] [place] [address] 03412 Leukocyte esterase Auto test strip Ql (U) 250 Deborah/???L Abnormal NEGATIVE [facility] Comment on above: Order Comment: OVER is reported when the result is greater than the clinically reportable range. Performed By: #### 5 8077-9 ####IRVIN MUNGUIA ([id number])[facility] ([facility])[address] [place] [address] 70348 Nitrite Auto test strip Ql (U) Negative Normal NEGATIVE [facility] Comment on above: Order Comment: OVER is reported when the result is greater than the clinically reportable range. Performed By: #### 5 8077-9 ####IRVIN MUNGUIA ([id number])[facility] ([facility])[address] [place] [address] pH (U) 6.5 [pH] Normal 5.0, 5.5, 6.0, 6.5, 7.0, 7.5, 8.0 [facility] Comment on above: Order Comment: OVER is reported when the result is greater than the clinically reportable range. Performed By: #### 5 8077-9 ####IRVIN MUNGUIA ([id number])[facility] ([facility])[address] [place] [address] Protein (U) [Mass/Vol] Negative Normal NEGATIVE, 10 (TRACE), 20 (TRACE) [facility] Comment on above: Order Comment: OVER is reported when the result is greater than the clinically reportable range. Performed By: #### 5 8077-9 ####IRVIN MUNGUIA ([id number])[facility] ([facility])[address] [place] [address] RBC (U) [#/Vol] 0.03 (TRACE) Abnormal NEGATIVE [facility] Comment on above: Order Comment: OVER is reported when the result is greater than the clinically reportable range. Performed By: #### 5 8077-9 ####IRVIN MUNGUIA ([id number])[facility] ([facility])[address] [place] [address] Specific gravity (U) [Rel density] 1.015 Normal 1.005-1.035 [facility] Comment on above: Order Comment: OVER is reported when the result is greater than the clinically reportable range. Performed By: #### 5 8077-9 ####IRVIN MUNGUIA ([id number])[facility] ([facility])[address] [place] [address] Urobilinogen (U) [Mass/Vol] Normal Normal Normal [facility] Comment on above: Order Comment: OVER is reported when the result is greater than the clinically reportable range. Performed By: #### 5 8077-9 ####IRVIN MUNGUIA ([id number])[facility] ([facility])[address] [place] [address] Urinalysis microscopic panel Auto Ql (U)on 05-28-2024 Bacteria Auto (Urine sed) [#/Area] 1+ /HPF Abnormal NONE SEEN [facility] Comment on above: Performed By: #### 5 3315-8 ####IRVIN MUNGUIA ([id number])[facility] ([facility])[address] [place] [address] Epithelial cells.squamous Auto (Urine sed) [#/Area] 1-9 (SPARSE) Normal Reference range not established. [facility] Comment on above: Performed By: #### 5 3315-8 ####IRVIN MUNGUIA ([id number])[facility] ([facility])[address] [place] [address] Leukocyte clumps Auto (Urine sed) [#/Area] RARE Normal Reference range not established. [facility] Comment on above: Performed By: #### 5 3315-8 ####IRVIN MUNGUIA ([id number])[facility] ([facility])[address] [place], [place] [address] Mucus Auto (Urine sed) [#/Area] FEW Normal Reference range not established. [facility] Comment on above: Performed By: #### 5 3315-8 ####IRVIN MUNGUIA ([id number])[facility] ([facility])[address] [place] [address] 26168 RBC Auto (Urine sed) [#/Area] >20 Abnormal NONE, 1-2, 3-5 [facility] Comment on above: Performed By: #### 5 3315-8 ####IRVIN MUNGUIA ([id number])[facility] ([facility])[address] [place] [address] 21839 WBC Auto (Urine sed) [#/Area] 21-50 Abnormal 1-5, NONE [facility] Comment on above: Performed By: #### 5 3315-8 ####IRVIN MUNGUIA ([id number])[facility] ([facility])[address] [place] [address] 52034 Beta hydroxybutyrate [Mass o r moles/Vol]on 05-15-2024 Beta hydroxybutyrate [Moles/Vol] 0.27 mmol/L Normal 0.02-0.27 [facility] Comment on above: Order Comment: The b eta-hydroxybutyrate test performance characteristics have been validated by [facility]. This test has not been approved by the FDA; however, such approval is not necessary. Result Comment: MILD HEMOLYSIS DETECTED. The result may be falsely elevated due to hemolysis or other interferents. Clinical correlation is recommended. Repeat testing may be considered. Performed By: #### 3 5255-9 ####IRVIN MUNGUIA ([id number])[facility] [facility] [place] [address] 52217 CBC panel Auto (Bld)on 05-15 Erythrocyte distribution width (RBC) [Ratio] 15.2 % High 11.5-14.5 [facility] Comment on above: Performed By: #### 5 8410-2 ####IRVIN MUNGUIA ([id number])[facility] ([facility])[address] [place] [address] 84654 Hematocrit (Bld) [Volume fraction] 43.8 % Normal 36.0-46.0 [facility] Comment on above: Performed By: #### 5 8410-2 ####IRVIN MUNGUIA ([id number])[facility] ([facility])[address] [place] [address] 72527 Hemoglobin (Bld) [Mass/Vol] 13.6 g/dL Normal 12.0-16.0 [facility] Comment on above: Performed By: #### 5 8410-2 ####IRVIN MUNGUIA ([id number])[facility] ([facility])[address] [place] [address] 83465 MCH (RBC) [Entitic mass] 26.5 pg Normal 26.0-34.0 [facility] Comment on above: Performed By: #### 5 8410-2 ####IRVIN MUNGUIA ([id number])[facility] ([facility])[address] [place] [address] 21303 MCHC (RBC) [Mass/Vol] 31.1 g/dL Low 32.0-36.0 [facility] Comment on above: Performed By: #### 5 8410-2 ####IRVIN MUNGUIA ([id number])[facility])[address] [place] [address] MCV (RBC) [Entitic vol] 85 fL Normal 80-100 [facility] Comment on above: Performed By: #### 5 8410-2 ####IRVIN MUNGUIA ([id number])[facility] ([facility])[address] [place] [address] Nucleated RBC/100 WBC (Bld) [Ratio] 0.0 /100 WBCs Normal 0.0-0.0 [facility] Comment on above: Performed By: #### 5 8410-2 ####IRVIN MUNGUIA ([id number])[facility] ([facility])[address] [place] [address] 38498 Platelets (Bld) [#/Vol] 367 x10*3/uL Normal 150-450 [facility] Comment on above: Performed By: #### 5 8410-2 ####IRVIN MUNGUIA ([id number])[facility])[address] [place] [address] 55926 RBC (Bld) [#/Vol] 5.14 x10*6/uL Normal 4.00-5.20 [facility] Comment on above: Performed By: #### 5 8410-2 ####IRVIN MUNGUIA ([id number])[facility])[address] [place] [address] 33943 WBC (Bld) [#/Vol] 11.3 x10*3/uL Normal 4.4-11.3 [facility] Comment on above: Performed By: #### 5 8410-2 ####IRVIN MUNGUIA ([id number])[facility])[address] [place] [address] CT ABDOMEN PELVIS W IV CONTR Reny 05-15-2024 CT ABDOMEN PELVIS W IV CONTRAST Normal [facility] Coagulation tissue factor in ducedon 05-15-2024 PT Coag (PPP) [Time] 16.2 s High 9.8-12.8 [facility] Comment on above: Performed By: #### 5 902-2 ####IRVIN MUNGUIA ([id number])[facility])[address] [place] [address] Comprehensive metabolic 2000 panelon 05-15-2024 Albumin BCP dye [Mass/Vol] 4.8 g/dL Normal 3.4-5.0 [facility] Comment on above: Performed By: #### 2 4323-8 ####IRVIN MUNGUIA ([id number])[facility])[address] [place] [address] ALP [Catalytic activity/Vol] 127 U/L High 33-110 [facility] Comment on above: Performed By: #### 2 4323-8 ####IRVIN MUNGUIA ([id number])[facility] ([facility])[address] [place] [address] ALT With P-5'-P [Catalytic activity/Vol] 48 U/L High 7-45 [facility] Comment on above: Result Comment: Evelyn ents treated with Sulfasalazine may generate falsely decreased results for ALT. Performed By: #### 2 4323-8 ####IRVIN MUNGUIA ([id number])[facility] ([facility])[address] [place] [address] Anion gap [Moles/Vol] 16 mmol/L Normal 10-20 [facility] Comment on above: Performed By: #### 2 4323-8 ####IRVIN MUNGUIA ([id number])[facility])[address] [place] [address] AST With P-5'-P [Catalytic activity/Vol] 33 U/L Normal 9-39 [facility] Comment on above: Result Comment: MILD HEMOLYSIS DETECTED. The result may be falsely elevated due to hemolysis or other interferents. Clinical correlation is recommended. Repeat testing may be considered. Performed By: #### 2 4323-8 ####IRVIN MUNGUIA ([id number])[facility])[address] [place] [address] 03613 Bilirubin [Mass/Vol] 0.3 mg/dL Normal 0.0-1.2 [facility] Comment on above: Performed By: #### 2 4323-8 ####IRVIN MUNGUIA ([id number])[facility])[address] [place] [address] 43178 Calcium [Mass/Vol] 9.3 mg/dL Normal 8.6-10.3 [facility] Comment on above: Performed By: #### 2 4323-8 ####IRVIN MUNGUIA ([id number])[facility])[address] [place] [address] 29404 Chloride [Moles/Vol] 101 mmol/L Normal 98-107 [facility] Comment on above: Performed By: #### 2 4323-8 ####IRVIN MUNGUIA ([id number])[facility])[address] [place] [address] 78775 CO2 [Moles/Vol] 21 mmol/L Normal 21-32 [facility] Comment on above: Performed By: #### 2 4323-8 ####IRVIN MUNGUIA ([id number])[facility])[address] [place] [address] 03365 Creatinine [Mass/Vol] 0.78 mg/dL Normal 0.50-1.05 [facility] Comment on above: Performed By: #### 2 4323-8 ####IRVIN MUNGUIA ([id number])[facility])[address] [place] [address] 62103 GFR/1.73 sq M.predicted MDRD (S/P/Bld) [Vol rate/Area] mL/min/{1.73_m2} Normal >60 [facility] Comment on above: Result Comment: Calc ulations of estimated GFR are performed using the 2020 CKD-EPI Study Refit equation without the race variable for the IDMS-Traceable creatinine methods.https://jasn.asnjournals.org/content/early/ N.7456409468 Performed By: #### 2 4323-8 ####IRVIN MUNGUIA ([id number])[facility])[address] [place] [address] 62411 Glucose [Mass/Vol] 240 mg/dL High 74-99 [facility] Comment on above: Performed By: #### 2 4323-8 ####IRVIN MUNGUIA ([id number])[facility])[address] [place] [address] 76012 Potassium [Moles/Vol] 4.1 mmol/L Normal 3.5-5.3 [facility] Comment on above: Result Comment: MILD HEMOLYSIS DETECTED. The result may be falsely elevated due to hemolysis or other interferents. Clinical correlation is recommended. Repeat testing may be considered. Performed By: #### 2 4323-8 ####IRVIN MUNGUIA ([id number])[facility])[address] [place] [address] 86941 Protein [Mass/Vol] 8.1 g/dL Normal 6.4-8.2 [facility] Comment on above: Performed By: #### 2 4323-8 ####IRVIN MUNGUIA ([id number])[facility])[address] [place] [address] 81931 Sodium [Moles/Vol] 134 mmol/L Low 136-145 [facility] Comment on above: Performed By: #### 2 4323-8 ####IRVIN MUNGUIA ([id number])[facility])[address] [place] [address] 14397 Urea nitrogen [Mass/Vol] 21 mg/dL Normal 6-23 [facility] Comment on above: Performed By: #### 2 4323-8 ####IRVIN MUNGUIA ([id number])[facility])[address] [place] [address] 84087 PT Coag (PPP) [Time]on 05-15 INR Coag (PPP) [Relative time] 1.4 High 0.9-1.1 [facility] Comment on above: Performed By: #### 5 902-2 ####IRVIN MUNGUIA ([id number])[facility])[address] [place] [address] 79863 Triacylglycerol lipaseon Lipase [Catalytic activity/Vol] 19 U/L Normal [facility] Comment on above: Order Comment: Venip uncture immediately after or during the administration of Metamizole may lead to falsely low results. Testing should be performed immediately prior to Metamizole dosing. Performed By: #### 3 040-3 ####IRVIN MUNGUIA ([id number])[facility] ([facility])[address] [place], [place] [address] Urinalysis complete W Reflex Culture panel (U)on 05-15-2024 Appearance (U) Clear Normal Clear [facility] Comment on above: Performed By: #### 5 8077-9 ####IRVIN MUNGUIA ([id number])[facility])[address] [place] [address] 41380 Bilirubin (U) [Mass/Vol] Negative Normal NEGATIVE [facility] Comment on above: Performed By: #### 5 8077-9 ####IRVIN MUNGUIA ([id number])[facility])[address] [place] [address] 65649 Color (U) Colorless Normal Light-Yellow , Yellow, Dark-Yellow [facility] Comment on above: Performed By: #### 5 8077-9 ####IRVIN MUNGUIA ([id number])[facility])[address] [place] [address] 94652 Glucose Auto test strip (U) [Mass/Vol] Normal Normal Normal [facility] Comment on above: Performed By: #### 5 8077-9 ####IRVIN MUNGUIA ([id number])[facility])[address] [place] [address] 97569 Ketones (U) [Mass/Vol] Negative Normal NEGATIVE [facility] Comment on above: Performed By: #### 5 8077-9 ####IRVIN MUNGUIA ([id number])[facility])[address] [place] [address] 13997 Leukocyte esterase Auto test strip Ql (U) Negative Normal NEGATIVE [facility] Comment on above: Performed By: #### 5 8077-9 ####IRVIN MUNGUIA ([id number])[facility])[address] [place] [address] 05624 Nitrite Auto test strip Ql (U) Negative Normal NEGATIVE [facility] Comment on above: Performed By: #### 5 8077-9 ####IRVIN MUNGUIA ([id number])[facility] ([facility])[address] [place], [place] [address] pH (U) 6.0 [pH] Normal 5.0, 5.5, 6.0, 6.5, 7.0, 7.5, 8.0 [facility] Comment on above: Performed By: #### 5 8077-9 ####IRVIN MUNGUIA ([id number])[facility])[address] [place] [address] 32275 Protein (U) [Mass/Vol] Negative Normal NEGATIVE, 10 (TRACE), 20 (TRACE) [facility] Comment on above: Performed By: #### 5 8077-9 ####IRVIN MUNGUIA ([id number])[facility])[address] [place] [address] 86930 RBC (U) [#/Vol] Negative Normal NEGATIVE [facility] Comment on above: Performed By: #### 5 8077-9 ####IRVIN MUNGUIA ([id number])[facility])[address] [place] [address] 91753 Specific gravity (U) [Rel density] 1.013 Normal 1.005-1.035 [facility] Comment on above: Performed By: #### 5 8077-9 ####IRVIN MUNGUIA ([id number])[facility])[address] [place] [address] 84826 Urobilinogen (U) [Mass/Vol] Normal Normal Normal [facility] Comment on above: Performed By: #### 5 8077-9 ####IRVIN MUNGUIA ([id number])[facility])[address] [place] [address] 27834 XR CHEST 1 VIEWon 05-15-2024 XR CHEST [address] [facility] CBC W Auto Differential pane l (Bld)on 04-21-2024 Basophils (Bld) [#/Vol] 0.04 x10*3/uL Normal 0.00-0.10 [facility] Comment on above: Performed By: #### 5 7021-8 ####IRVIN MUNGUIA ([id number])[facility])[address] [place] [address] 34406 Basophils/100 WBC (Bld) 0.4 % Normal 0.0-2.0 [facility] Comment on above: Performed By: #### 5 7021-8 ####IRVIN MUNGUIA ([id number])[facility])[address] [place] [address] 05769 Eosinophils (Bld) [#/Vol] 0.19 x10*3/uL Normal 0.00-0.70 [facility] Comment on above: Performed By: #### 5 7021-8 ####IRVIN MNUGUIA ([id number])[facility])[address] [place] [address] 92716 Eosinophils/100 WBC (Bld) 1.7 % Normal 0.0-6.0 [facility] Comment on above: Performed By: #### 5 7021-8 ####IRVIN MUNGUIA ([id number])[facility])[address] [place] [address] 58872 Erythrocyte distribution width (RBC) [Ratio] 14.8 % High 11.5-14.5 [facility] Comment on above: Performed By: #### 5 7021-8 ####IRVIN MUNGUIA ([id number])[facility])[address] [place] [address] 96209 Hematocrit (Bld) [Volume fraction] 38.8 % Normal 36.0-46.0 [facility] Comment on above: Performed By: #### 5 7021-8 ####IRVIN MUNGUIA ([id number])[facility])[address] [place] [address] 01928 Hemoglobin (Bld) [Mass/Vol] 11.8 g/dL Low 12.0-16.0 [facility] Comment on above: Performed By: #### 5 7021-8 ####IRVIN MUNGUIA ([id number])[facility])[address] [place] [address] 19338 Immature granulocytes (Bld) [#/Vol] 0.05 x10*3/uL Normal 0.00-0.70 [facility] Comment on above: Performed By: #### 5 7021-8 ####IRVIN MUNGUIA ([id number])[facility])[address] [place] [address] 94733 Immature granulocytes/100 WBC (Bld) 0.5 % Normal 0.0-0.9 [facility] Comment on above: Result Comment: Debbie ture Granulocyte Count (IG) includes promyelocytes, myelocytes and metamyelocytes but does not include bands. Percent differential counts (%) should be interpreted in the context of the absolute cell counts (cells/UL). Performed By: #### 5 7021-8 ####IRVIN MUNGUIA ([id number])[facility])[address] [place] [address] 53614 Lymphocytes (Bld) [#/Vol] 2.10 x10*3/uL Normal 1.20-4.80 [facility] Comment on above: Performed By: #### 5 7021-8 ####IRVIN MUNGUIA ([id number])[facility])[address] [place] [address] 44938 Lymphocytes/100 WBC (Bld) 19.3 % Normal 13.0-44.0 [facility] Comment on above: Performed By: #### 5 7021-8 ####IRVIN MUNGUIA ([id number])[facility])[address] [place] [address] 65761 MCH (RBC) [Entitic mass] 25.5 pg Low 26.0-34.0 [facility] Comment on above: Performed By: #### 5 7021-8 ####IRVIN MUNGUIA ([id number])[facility])[address] [place] [address] 92466 MCHC (RBC) [Mass/Vol] 30.4 g/dL Low 32.0-36.0 [facility] Comment on above: Performed By: #### 5 7021-8 ####IRVIN MUNGUIA ([id number])[facility])[address] [place] [address] 74128 MCV (RBC) [Entitic vol] 84 fL Normal 80-100 [facility] Comment on above: Performed By: #### 5 7021-8 ####IRVIN MUNGUIA ([id number])[facility])[address] [place] [address] 25094 Monocytes (Bld) [#/Vol] 0.64 x10*3/uL Normal 0.10-1.00 [facility] Comment on above: Performed By: #### 5 7021-8 ####IRVIN MUNGUIA ([id number])[facility])[address] [place] [address] 22752 Monocytes/100 WBC (Bld) 5.9 % Normal 2.0-10.0 [facility] Comment on above: Performed By: #### 5 7021-8 ####IRVIN MUNGUIA ([id number])[facility])[address] [place] [address] 30769 Neutrophils (Bld) [#/Vol] 7.84 x10*3/uL High 1.20-7.70 [facility] Comment on above: Result Comment: Perc ent differential counts (%) should be interpreted in the context of the absolute cell counts (cells/uL). Performed By: #### 5 7021-8 ####IRVIN MUNGUIA ([id number])[facility])[address] [place] [address] 49958 Neutrophils/100 WBC (Bld) 72.2 % Normal 40.0-80.0 [facility] Comment on above: Performed By: #### 5 7021-8 ####IRVIN MUNGUIA ([id number])[facility])[address] [place] [address] 51331 Nucleated RBC/100 WBC (Bld) [Ratio] 0.0 /100 WBCs Normal 0.0-0.0 [facility] Comment on above: Performed By: #### 5 7021-8 ####IRVIN MUNGUIA ([id number])[facility])[address] [place] [address] 40765 Platelets (Bld) [#/Vol] 345 x10*3/uL Normal 150-450 [facility] Comment on above: Performed By: #### 5 7021-8 ####IRVIN MUNGUIA ([id number])[facility])[address] [place] [address] 57727 RBC (Bld) [#/Vol] 4.63 x10*6/uL Normal 4.00-5.20 [facility] Comment on above: Performed By: #### 5 7021-8 ####IRVIN MUNGUIA ([id number])[facility])[address] [place] [address] 64898 WBC (Bld) [#/Vol] 10.9 x10*3/uL Normal 4.4-11.3 [facility] Comment on above: Performed By: #### 5 7021-8 ####IRVIN MUNGUIA ([id number])[facility])[address] [place] [address] 63994 Comprehensive metabolic 2000 panelon 04-21-2024 Albumin BCP dye [Mass/Vol] 4.2 g/dL Normal 3.4-5.0 [facility] Comment on above: Performed By: #### 2 432-8 ####IRVIN MUNGUIA ([id number])[facility])[address] [place] [address] 09842 ALP [Catalytic activity/Vol] 168 U/L High 33-110 [facility] Comment on above: Performed By: #### 2 432-8 ####IRVIN MUNGUIA ([id number])[facility])[address] [place] [address] 73968 ALT With P-5'-P [Catalytic activity/Vol] 53 U/L High 7-45 [facility] Comment on above: Result Comment: Evelyn ents treated with Sulfasalazine may generate falsely decreased results for ALT. Performed By: #### 2 432-8 ####IRVIN MUNGUIA ([id number])[facility])[address] [place] [address] 40153 Anion gap [Moles/Vol] 17 mmol/L Normal 10-20 [facility] Comment on above: Performed By: #### 2 4322-8 ####IRVIN MUNGUIA ([id number])[facility])[address] [place] [address] 08043 AST With P-5'-P [Catalytic activity/Vol] 26 U/L Normal 9-39 [facility] Comment on above: Performed By: #### 2 4322-8 ####IRVIN MUNGUIA ([id number])[facility])[address] [place] [address] 25157 Bilirubin [Mass/Vol] 0.3 mg/dL Normal 0.0-1.2 [facility] Comment on above: Performed By: #### 2 4322-8 ####IRVIN MUNGUIA ([id number])[facility])[address] [place] [address] 58108 Calcium [Mass/Vol] 9.8 mg/dL Normal 8.6-10.3 [facility] Comment on above: Performed By: #### 2 4322-8 ####IRVIN MUNGUIA ([id number])[facility] [place] [address] Chloride [Moles/Vol] 99 mmol/L Normal 98-107 [facility] Comment on above: Performed By: #### 2 4323-8 ####IRVIN MUNGUIA ([id number])[facility])[address] [place] [address] 67814 CO2 [Moles/Vol] 23 mmol/L Normal 21-32 [facility] Comment on above: Performed By: #### 2 432-8 ####IRVIN MUNGUIA ([id number])[facility])[address] [place] [address] 93081 Creatinine [Mass/Vol] 0.78 mg/dL Normal 0.50-1.05 [facility] Comment on above: Performed By: #### 2 432-8 ####IRVIN MUNGUIA ([id number])[facility])[address] [place] [address] 52353 GFR/1.73 sq M.predicted MDRD (S/P/Bld) [Vol rate/Area] mL/min/{1.73_m2} Normal >60 [facility] Comment on above: Result Comment: Calc ulations of estimated GFR are performed using the 2020 CKD-EPI Study Refit equation without the race variable for the IDMS-Traceable creatinine methods.https://jasn.asnjournals.org/content/early/ N.3048249589 Performed By: #### 2 4323-8 ####IRVIN MUNGUIA ([id number])[facility])[address] [place] [address] 19313 Glucose [Mass/Vol] 167 mg/dL High 74-99 [facility] Comment on above: Performed By: #### 2 4323-8 ####IRVIN MUNGUIA ([id number])[facility])[address] [place] [address] 78457 Potassium [Moles/Vol] 3.9 mmol/L Normal 3.5-5.3 [facility] Comment on above: Performed By: #### 2 4323-8 ####IRVIN MUNGUIA ([id number])[facility])[address] [place] [address] 03089 Protein [Mass/Vol] 7.9 g/dL Normal 6.4-8.2 [facility] Comment on above: Performed By: #### 2 4323-8 ####IRVIN MUNGUIA ([id number])[facility])[address] [place] [address] 54722 Sodium [Moles/Vol] 135 mmol/L Low 136-145 [facility] Comment on above: Performed By: #### 2 4323-8 ####IRVIN MUNGUIA ([id number])[facility])[address] [place] [address] 42212 Urea nitrogen [Mass/Vol] 12 mg/dL Normal 6-23 [facility] Comment on above: Performed By: #### 2 4323-8 ####IRVIN MUNGUIA ([id number])[facility])[address] [place] [address] 99590 Lactateon 04-21-2024 Lactate [Moles/Vol] 1.6 mmol/L Normal 0.4-2.0 [facility] Comment on above: Order Comment: Venip uncture immediately after or during the administration of Metamizole may lead to falsely low results. Testing should be performed immediatelyprior to Metamizole dosing. Performed By: #### 2 524-7 ####IRVIN MUNGUIA ([id number])[facility])[address] [place] [id number] Triacylglycerol lipaseon Lipase [Catalytic activity/Vol] 62 U/L Normal 9-82 [facility] Comment on above: Order Comment: Venip uncture immediately after or during the administration of Metamizole may lead to falsely low results. Testing should be performed immediately prior to Metamizole dosing. Performed By: #### 3 040-3 ####IRVIN MUNGUIA ([id number])[facility] ([facility])[address] [place] [address] Urinalysis complete W Reflex Culture panel (U)on 04-21-2024 Appearance (U) Clear Normal Clear [facility] Comment on above: Performed By: #### 5 8077-9 ####IRVIN MUNGUIA ([id number])[facility] ([facility])[address] [place] [address] Bilirubin (U) [Mass/Vol] Negative Normal NEGATIVE [facility] Comment on above: Performed By: #### 5 8077-9 ####IRVIN MUNGUIA ([id number])[facility] ([facility])[address] [place] [address] Color (U) Colorless Normal Light-Yellow , Yellow, Dark-Yellow [facility] Comment on above: Performed By: #### 5 8077-9 ####IRVIN MUNGUIA ([id number])[facility] ([facility])[address] [place] [address] Glucose Auto test strip (U) [Mass/Vol] Normal Normal Normal [facility] Comment on above: Performed By: #### 5 8077-9 ####IRVIN MUNGUIA ([id number])[facility] ([facility])[address] [place] [address] Ketones (U) [Mass/Vol] Negative Normal NEGATIVE [facility] Comment on above: Performed By: #### 5 8077-9 ####IRVIN MUNGUIA ([id number])[facility] ([facility])[address] [place], [place] [address] Leukocyte esterase Auto test strip Ql (U) Negative Normal NEGATIVE [facility] Comment on above: Performed By: #### 5 8077-9 ####IRVIN MUNGUIA ([id number])[facility] ([facility])[address] [place], [place] [address] Nitrite Auto test strip Ql (U) Negative Normal NEGATIVE [facility] Comment on above: Performed By: #### 5 8077-9 ####IRVIN MUNGUIA ([id number])[facility] ([facility])[address] [place] [address] pH (U) 6.5 [pH] Normal 5.0, 5.5, 6.0, 6.5, 7.0, 7.5, 8.0 [facility] Comment on above: Performed By: #### 5 8077-9 ####IRVIN MUNGUIA ([id number])[facility] ([facility])[address] [place] [address] Protein (U) [Mass/Vol] Negative Normal NEGATIVE, 10 (TRACE), 20 (TRACE) [facility] Comment on above: Performed By: #### 5 8077-9 ####IRVIN MUNGUIA ([id number])[facility] ([facility])[address] [place] [address] RBC (U) [#/Vol] Negative Normal NEGATIVE [facility] Comment on above: Performed By: #### 5 8077-9 ####IRVIN MUNGUIA ([id number])[facility] ([facility])[address] [place] [address] Specific gravity (U) [Rel density] 1.010 Normal 1.005-1.035 [facility] Comment on above: Performed By: #### 5 8077-9 ####IRVIN MUNGUIA ([id number])[facility] ([facility])[address] [place] [address] Urobilinogen (U) [Mass/Vol] Normal Normal Normal [facility] Comment on above: Performed By: #### 5 8077-9 ####IRVIN MUNGUIA ([id number])[facility] ([facility])[address] [place] [address] CBC W Auto Differential pane l (Bld)on 04-12-2024 Basophils (Bld) [#/Vol] 0.07 x10*3/uL Normal 0.00-0.10 [facility] Comment on above: Performed By: #### 5 7021-8 ####IRVIN MUNGUIA ([id number])[facility] ([facility])[address] [place] [address] Basophils/100 WBC (Bld) 0.7 % Normal 0.0-2.0 [facility] Comment on above: Performed By: #### 5 7021-8 ####IRVIN MUNGUIA ([id number])[facility] ([facility])[address] [place] [address] 24321 Eosinophils (Bld) [#/Vol] 0.09 x10*3/uL Normal 0.00-0.70 [facility] Comment on above: Performed By: #### 5 7021-8 ####IRVIN MUNGUIA ([id number])[facility] ([facility])[address] [place] [address] 96942 Eosinophils/100 WBC (Bld) 0.9 % Normal 0.0-6.0 [facility] Comment on above: Performed By: #### 5 7021-8 ####IRVIN MUNGUIA ([id number])[facility])[address] [place] [address] 13018 Erythrocyte distribution width (RBC) [Ratio] 14.1 % Normal 11.5-14.5 [facility] Comment on above: Performed By: #### 5 7021-8 ####IRVIN MUNGUIA ([id number])[facility])[address] [place] [address] 81015 Hematocrit (Bld) [Volume fraction] 38.5 % Normal 36.0-46.0 [facility] Comment on above: Performed By: #### 5 7021-8 ####IRVIN MUNGUIA ([id number])[facility] ([facility])[address] [place] [address] 12693 Hemoglobin (Bld) [Mass/Vol] 11.8 g/dL Low 12.0-16.0 [facility] Comment on above: Performed By: #### 5 7021-8 ####IRVIN MUNGUIA ([id number])[facility] ([facility])[address] [place] [address] 36578 Immature granulocytes (Bld) [#/Vol] 0.03 x10*3/uL Normal 0.00-0.70 [facility] Comment on above: Performed By: #### 5 7021-8 ####IRVIN MUNGUIA ([id number])[facility])[address] [place] [address] 77015 Immature granulocytes/100 WBC (Bld) 0.3 % Normal 0.0-0.9 [facility] Comment on above: Result Comment: Debbie ture Granulocyte Count (IG) includes promyelocytes, myelocytes and metamyelocytes but does not include bands. Percent differential counts (%) should be interpreted in the context of the absolute cell counts (cells/UL). Performed By: #### 5 7021-8 ####IRVIN MUNGUIA ([id number])[facility] ([facility])[address] [place], [place] [address] Lymphocytes (Bld) [#/Vol] 4.01 x10*3/uL Normal 1.20-4.80 [facility] Comment on above: Performed By: #### 5 7021-8 ####IRVIN MUNGUIA ([id number])[facility])[address] [place] [address] 50506 Lymphocytes/100 WBC (Bld) 41.8 % Normal 13.0-44.0 [facility] Comment on above: Performed By: #### 5 7021-8 ####IRVIN MUNGUIA ([id number])[facility] ([facility])[address] [place] [address] 17435 MCH (RBC) [Entitic mass] 25.9 pg Low 26.0-34.0 [facility] Comment on above: Performed By: #### 5 7021-8 ####IRVIN MUNGUIA ([id number])[facility] ([facility])[address] [place] [address] 31789 MCHC (RBC) [Mass/Vol] 30.6 g/dL Low 32.0-36.0 [facility] Comment on above: Performed By: #### 5 7021-8 ####IRVIN MUNGUIA ([id number])[facility])[address] [place] [address] 95013 MCV (RBC) [Entitic vol] 85 fL Normal 80-100 [facility] Comment on above: Performed By: #### 5 7021-8 ####IRVIN MUNGUIA ([id number])[facility])[address] [place] [address] 73492 Monocytes (Bld) [#/Vol] 0.58 x10*3/uL Normal 0.10-1.00 [facility] Comment on above: Performed By: #### 5 7021-8 ####IRVIN MUNGUIA ([id number])[facility])[address] [place] [address] 50528 Monocytes/100 WBC (Bld) 6.0 % Normal 2.0-10.0 [facility] Comment on above: Performed By: #### 5 7021-8 ####IRVIN MUNGUIA ([id number])[facility])[address] [place] [address] 56095 Neutrophils (Bld) [#/Vol] 4.81 x10*3/uL Normal 1.20-7.70 [facility] Comment on above: Result Comment: Perc ent differential counts (%) should be interpreted in the context of the absolute cell counts (cells/uL). Performed By: #### 5 7021-8 ####IRVIN MUNGUIA ([id number])[facility])[address] [place] [address] 58081 Neutrophils/100 WBC (Bld) 50.3 % Normal 40.0-80.0 [facility] Comment on above: Performed By: #### 5 7021-8 ####IRVIN MUNGUIA ([id number])[facility] ([facility])[address] [place] [address] 87352 Nucleated RBC/100 WBC (Bld) [Ratio] 0.0 /100 WBCs Normal 0.0-0.0 [facility] Comment on above: Performed By: #### 5 7021-8 ####IRVIN MUNGUIA ([id number])[facility])[address] [place] [address] 93652 Platelets (Bld) [#/Vol] 344 x10*3/uL Normal 150-450 [facility] Comment on above: Performed By: #### 5 7021-8 ####IRVIN MUNGUIA ([id number])[facility])[address] [place] [address] RBC (Bld) [#/Vol] 4.55 x10*6/uL Normal 4.00-5.20 [facility] Comment on above: Performed By: #### 5 7021-8 ####IRVIN MUNGUIA ([id number])[facility])[address] [place] [address] WBC (Bld) [#/Vol] 9.6 x10*3/uL Normal 4.4-11.3 [facility] Comment on above: Performed By: #### 5 7021-8 ####IRVIN MUNGUIA ([id number])[facility])[address] [place] [address] CT ABDOMEN PELVIS W IV CONTR Reny 04-12-2024 CT ABDOMEN PELVIS W IV CONTRAST Normal [facility] Coagulation surface inducedo n 04-12-2024 aPTT Coag (PPP) [Time] 47 s High 27-38 [facility] Comment on above: Order Comment: The A PTT is no longer used for monitoring Unfractionated Heparin Therapy. For monitoring Heparin Therapy, use the Heparin Assay. Performed By: #### 1 4979-9 ####IRVIN MUNGUIA ([id number])[facility] ([facility])[address] [place], [place] [address] Coagulation tissue factor in ducedon 04-12-2024 PT Coag (PPP) [Time] 21.9 s High 9.8-12.8 [facility] Comment on above: Performed By: #### 5 902-2 ####IRVIN MUNGUIA ([id number])[facility] ([facility])[address] [place], [place] [address] Comprehensive metabolic 2000 panelon 04-12-2024 Albumin BCP dye [Mass/Vol] 4.1 g/dL Normal 3.4-5.0 [facility] Comment on above: Performed By: #### 2 4323-8 ####IRVIN MUNGUIA ([id number])[facility])[address] [place] [address] 98882 ALP [Catalytic activity/Vol] 134 U/L High 33-110 [facility] Comment on above: Performed By: #### 2 432-8 ####IRVIN MUNGUIA ([id number])[facility] ([facility])[address] [place] [address] 92512 ALT With P-5'-P [Catalytic activity/Vol] 39 U/L Normal 7-45 [facility] Comment on above: Result Comment: Evelyn ents treated with Sulfasalazine may generate falsely decreased results for ALT. Performed By: #### 2 432-8 ####IRVIN MUNGUIA ([id number])[facility] ([facility])[address] [place] [address] 27924 Anion gap [Moles/Vol] 16 mmol/L Normal 10-20 [facility] Comment on above: Performed By: #### 2 4322-8 ####IRVIN MUNGUIA ([id number])[facility])[address] [place] [address] 14778 AST With P-5'-P [Catalytic activity/Vol] 35 U/L Normal 9-39 [facility] Comment on above: Performed By: #### 2 4322-8 ####IRVIN MUNGUIA ([id number])[facility])[address] [place] [address] 70001 Bilirubin [Mass/Vol] 0.3 mg/dL Normal 0.0-1.2 [facility] Comment on above: Performed By: #### 2 4322-8 ####IRVIN MUNGUIA ([id number])[facility])[address] [place] [address] 78093 Calcium [Mass/Vol] 8.7 mg/dL Normal 8.6-10.3 [facility] Comment on above: Performed By: #### 2 3-8 ####IRVIN MUNGUIA ([id number])[facility] ([facility])[address] [place] [address] Chloride [Moles/Vol] 101 mmol/L Normal 98-107 [facility] Comment on above: Performed By: #### 2 4323-8 ####IRVIN MUNGUIA ([id number])[facility])[address] [place] [address] 25308 CO2 [Moles/Vol] 20 mmol/L Low 21-32 [facility] Comment on above: Performed By: #### 2 4323-8 ####IRVIN MUNGUIA ([id number])[facility] ([facility])[address] [place] [address] 17193 Creatinine [Mass/Vol] 0.94 mg/dL Normal 0.50-1.05 [facility] Comment on above: Performed By: #### 2 4323-8 ####IRVIN MUNGUIA ([id number])[facility])[address] [place] [address] 73346 Glomerular filtration rate/1.73 sq M.predicted 75 mL/min/1.73m*2 Normal >60 [facility] Comment on above: Result Comment: Calc ulations of estimated GFR are performed using the 2020 CKD-EPI Study Refit equation without the race variable for the IDMS-Traceable creatinine methods.https://jasn.asnjournals.org/content/early/ N.0624136373 Performed By: #### 2 4323-8 ####IRVIN MUNGUIA ([id number])[facility])[address] [place] [address] 12818 Glucose [Mass/Vol] 146 mg/dL High 74-99 [facility] Comment on above: Performed By: #### 2 4323-8 ####IRVIN MUNGUIA ([id number])[facility])[address] [place] [address] 74176 Potassium [Moles/Vol] 4.3 mmol/L Normal 3.5-5.3 [facility] Comment on above: Performed By: #### 2 4323-8 ####IRVIN MUNGUIA ([id number])[facility])[address] [place] [address] 32450 Protein [Mass/Vol] 7.6 g/dL Normal 6.4-8.2 [facility] Comment on above: Performed By: #### 2 4323-8 ####IRVIN MUNGUIA ([id number])[facility])[address] [place] [address] 43299 Sodium [Moles/Vol] 133 mmol/L Low 136-145 [facility] Comment on above: Performed By: #### 2 4323-8 ####IRVIN MUNGUIA ([id number])[facility])[address] [place] [address] 31320 Urea nitrogen [Mass/Vol] 13 mg/dL Normal 6-23 [facility] Comment on above: Performed By: #### 2 4323-8 ####IRVIN MUNGUIA ([id number])[facility])[address] [place] [address] 50647 Lactateon 04-12-2024 Lactate [Moles/Vol] 2.2 mmol/L High 0.4-2.0 [facility] Comment on above: Order Comment: Venip uncture immediately after or during the administration of Metamizole may lead to falsely low results. Testing should be performed immediatelyprior to Metamizole dosing. Performed By: #### 2 524-7 ####IRVIN MUNGUIA ([id number])[facility])[address] [place] [address] 83734 Magnesiumon 04-12-2024 Magnesium [Mass/Vol] 1.79 mg/dL Normal 1.60-2.40 [facility] Comment on above: Performed By: #### 1 9123-9 ####IRVIN MUNGUIA ([id number])[facility])[address] [place] [address] 12552 PT Coag (PPP) [Time]on 04-12 INR Coag (PPP) [Relative time] 1.9 High 0.9-1.1 [facility] Comment on above: Performed By: #### 5 902-2 ####IRVIN MUNGUIA ([id number])[facility])[address] [place] [address] 80816 Triacylglycerol lipaseon Lipase [Catalytic activity/Vol] 29 U/L Normal 9-82 [facility] Comment on above: Order Comment: Venip uncture immediately after or during the administration of Metamizole may lead to falsely low results. Testing should be performed immediately prior to Metamizole dosing. Performed By: #### 3 040-3 ####IRVIN MUNGUIA ([id number])[facility])[address] [place] [address] 29807 CBC W Auto Differential pane l (Bld)on 04-03-2024 Basophils (Bld) [#/Vol] 0.04 x10*3/uL Normal 0.00-0.10 [facility] Comment on above: Performed By: #### 5 7021-8 ####IRVIN MUNGUIA ([id number])[facility])[address] [place] [address] 02485 Basophils/100 WBC (Bld) 0.3 % Normal 0.0-2.0 [facility] Comment on above: Performed By: #### 5 7021-8 ####IRVIN MUNGUIA ([id number])[facility])[address] [place] [address] 24441 Eosinophils (Bld) [#/Vol] 0.16 x10*3/uL Normal 0.00-0.70 [facility] Comment on above: Performed By: #### 5 7021-8 ####IRVIN MUNGUIA ([id number])[facility])[address] [place] [address] 03590 Eosinophils/100 WBC (Bld) 1.3 % Normal 0.0-6.0 [facility] Comment on above: Performed By: #### 5 7021-8 ####IRVIN MUNGUIA ([id number])[facility])[address] [place] [address] 76016 Erythrocyte distribution width (RBC) [Ratio] 13.8 % Normal 11.5-14.5 [facility] Comment on above: Performed By: #### 5 7021-8 ####IRVIN MUNGUIA ([id number])[facility])[address] [place] [address] Hematocrit (Bld) [Volume fraction] 38.0 % Normal 36.0-46.0 [facility] Comment on above: Performed By: #### 5 7021-8 ####IRVIN MUNGUIA ([id number])[facility] ([facility])[address] [place], [place] [address] Hemoglobin (Bld) [Mass/Vol] 11.7 g/dL Low 12.0-16.0 [facility] Comment on above: Performed By: #### 5 7021-8 ####IRVIN MUNGUIA ([id number])[facility])[address] [place], [place] [address] Immature granulocytes (Bld) [#/Vol] 0.07 x10*3/uL Normal 0.00-0.70 [facility] Comment on above: Performed By: #### 5 7021-8 ####IRVIN MUNGUIA ([id number])[facility] ([facility])[address] [place], [place] [address] Immature granulocytes/100 WBC (Bld) 0.6 % Normal 0.0-0.9 [facility] Comment on above: Result Comment: Debbie ture Granulocyte Count (IG) includes promyelocytes, myelocytes and metamyelocytes but does not include bands. Percent differential counts (%) should be interpreted in the context of the absolute cell counts (cells/UL). Performed By: #### 5 7021-8 ####IRVIN MUNGUIA ([id number])[facility] ([facility])[address] [place], [place] [address] Lymphocytes (Bld) [#/Vol] 2.81 x10*3/uL Normal 1.20-4.80 [facility] Comment on above: Performed By: #### 5 7021-8 ####IRVIN MUNGUIA ([id number])[facility])[address] [place] [address] 32100 Lymphocytes/100 WBC (Bld) 23.5 % Normal 13.0-44.0 [facility] Comment on above: Performed By: #### 5 7021-8 ####IRVIN MUNGUIA ([id number])[facility])[address] [place] [address] 84199 MCH (RBC) [Entitic mass] 26.2 pg Normal 26.0-34.0 [facility] Comment on above: Performed By: #### 5 7021-8 ####IRVIN MUNGUIA ([id number])[facility])[address] [place] [address] 41772 MCHC (RBC) [Mass/Vol] 30.8 g/dL Low 32.0-36.0 [facility] Comment on above: Performed By: #### 5 7021-8 ####IRVIN MUNGUIA ([id number])[facility])[address] [place] [address] 49761 MCV (RBC) [Entitic vol] 85 fL Normal 80-100 [facility] Comment on above: Performed By: #### 5 7021-8 ####IRVIN MUNUGIA ([id number])[facility])[address] [place] [address] 14862 Monocytes (Bld) [#/Vol] 0.56 x10*3/uL Normal 0.10-1.00 [facility] Comment on above: Performed By: #### 5 7021-8 ####IRVIN MUNGUIA ([id number])[facility])[address] [place] [address] 25054 Monocytes/100 WBC (Bld) 4.7 % Normal 2.0-10.0 [facility] Comment on above: Performed By: #### 5 7021-8 ####IRVIN MUNGUIA ([id number])[facility])[address] [place] [address] 08533 Neutrophils (Bld) [#/Vol] 8.33 x10*3/uL High 1.20-7.70 [facility] Comment on above: Result Comment: Perc ent differential counts (%) should be interpreted in the context of the absolute cell counts (cells/uL). Performed By: #### 5 7021-8 ####IRVIN MUNGUIA ([id number])[facility])[address] [place] [address] 18254 Neutrophils/100 WBC (Bld) 69.6 % Normal 40.0-80.0 [facility] Comment on above: Performed By: #### 5 7021-8 ####IRVIN MUNGUIA ([id number])[facility])[address] [place] [address] 02250 Nucleated RBC/100 WBC (Bld) [Ratio] 0.0 /100 WBCs Normal 0.0-0.0 [facility] Comment on above: Performed By: #### 5 7021-8 ####IRVIN MUNGUIA ([id number])[facility])[address] [place] [address] 14922 Platelets (Bld) [#/Vol] 450 x10*3/uL Normal 150-450 [facility] Comment on above: Performed By: #### 5 7021-8 ####IRVIN MUNGUIA ([id number])[facility])[address] [place] [address] 40440 RBC (Bld) [#/Vol] 4.47 x10*6/uL Normal 4.00-5.20 [facility] Comment on above: Performed By: #### 5 7021-8 ####IRVIN MUNGUIA ([id number])[facility])[address] [place] [address] 26065 WBC (Bld) [#/Vol] 12.0 x10*3/uL High 4.4-11.3 [facility] Comment on above: Performed By: #### 5 7021-8 ####IRVIN MUNGUIA ([id number])[facility])[address] [place] [address] 96163 Coagulation tissue factor in ducedon 04-03-2024 PT Coag (PPP) [Time] 19.9 s High 9.8-12.8 [facility] Comment on above: Performed By: #### 5 902-2 ####IRVIN MUNGUIA ([id number])[facility])[address] [place] [address] Comprehensive metabolic 2000 panelon 04-03-2024 Albumin BCP dye [Mass/Vol] 4.1 g/dL Normal 3.4-5.0 [facility] Comment on above: Performed By: #### 2 4323-8 ####IRVIN MUNGUIA ([id number])[facility])[address] [place] [address] ALP [Catalytic activity/Vol] 175 U/L High 33-110 [facility] Comment on above: Performed By: #### 2 4323-8 ####IRVIN MUNGUIA ([id number])[facility])[address] [place], [place] [address] ALT With P-5'-P [Catalytic activity/Vol] 29 U/L Normal 7-45 [facility] Comment on above: Result Comment: Evelyn ents treated with Sulfasalazine may generate falsely decreased results for ALT. Performed By: #### 2 4323-8 ####IRVIN MUNGUIA ([id number])[facility])[address] [place] [address] 52604 Anion gap [Moles/Vol] 17 mmol/L Normal 10-20 [facility] Comment on above: Performed By: #### 2 4323-8 ####IRVIN MUNGUIA ([id number])[facility])[address] [place] [address] 73682 AST With P-5'-P [Catalytic activity/Vol] 28 U/L Normal 9-39 [facility] Comment on above: Result Comment: MILD HEMOLYSIS DETECTED. The result may be falsely elevated due to hemolysis or other interferents. Clinical correlation is recommended. Repeat testing may be considered. Performed By: #### 2 4323-8 ####IRVIN MUNGUIA ([id number])[facility] ([facility])[address] [place] [address] Bilirubin [Mass/Vol] 0.2 mg/dL Normal 0.0-1.2 [facility] Comment on above: Performed By: #### 2 4323-8 ####IRVIN MUNGUIA ([id number])[facility] ([facility])[address] [place] [address] Calcium [Mass/Vol] 9.3 mg/dL Normal 8.6-10.3 [facility] Comment on above: Performed By: #### 2 4323-8 ####IRVIN MUNGUIA ([id number])[facility] ([facility])[address] [place] [id number] Chloride [Moles/Vol] 99 mmol/L Normal 98-107 [facility] Comment on above: Performed By: #### 2 4323-8 ####IRVIN MUNGUIA ([id number])[facility] ([facility])[address] [place] [address] 37337 CO2 [Moles/Vol] 22 mmol/L Normal 21-32 [facility] Comment on above: Performed By: #### 2 4323-8 ####IRVIN MUNGUIA ([id number])[facility] ([facility] [place] [address] Creatinine [Mass/Vol] 0.86 mg/dL Normal 0.50-1.05 [facility] Comment on above: Performed By: #### 2 4323-8 ####IRVIN MUNGUIA ([id number])[facility] ([facility])[address] [place] [address] 35543 Glomerular filtration rate/1.73 sq M.predicted 83 mL/min/1.73m*2 Normal >60 [facility] Comment on above: Result Comment: Calc ulations of estimated GFR are performed using the 2020 CKD-EPI Study Refit equation without the race variable for the IDMS-Traceable creatinine methods.https://jasn.asnjournals.org/content/early// N.1433541484 Performed By: #### 2 4323-8 ####IRVIN MUNGUIA ([id number])[facility] ([facility])[address] [place] [address] 24380 Glucose [Mass/Vol] 207 mg/dL High 74-99 [facility] Comment on above: Performed By: #### 2 4323-8 ####IRVIN MUNGUIA ([id number])[facility] ([facility])[address] [place] [address] 55559 Potassium [Moles/Vol] 4.4 mmol/L Normal 3.5-5.3 [facility] Comment on above: Result Comment: MILD HEMOLYSIS DETECTED. The result may be falsely elevated due to hemolysis or other interferents. Clinical correlation is recommended. Repeat testing may be considered. Performed By: #### 2 4323-8 ####IRVIN MUNGUIA ([id number])[facility] ([facility])[address] [place] [address] 67127 Protein [Mass/Vol] 8.1 g/dL Normal 6.4-8.2 [facility] Comment on above: Performed By: #### 2 4323-8 ####IRVIN MUNGUIA ([id number])[facility] ([facility])[address] [place] [address] 23119 Sodium [Moles/Vol] 134 mmol/L Low 136-145 [facility] Comment on above: Performed By: #### 2 4323-8 ####IRVIN MUNGUIA ([id number])[facility] ([facility])[address] [place] [address] 32516 Urea nitrogen [Mass/Vol] 15 mg/dL Normal 6-23 [facility] Comment on above: Performed By: #### 2 4323-8 ####IRVIN MUNGUIA ([id number])[facility] ([facility])[address] [place] [address] 93383 Lactateon 04-03-2024 Lactate [Moles/Vol] 1.6 mmol/L Normal 0.4-2.0 [facility] Comment on above: Order Comment: Venip uncture immediately after or during the administration of Metamizole may lead to falsely low results. Testing should be performed immediatelyprior to Metamizole dosing. Performed By: #### 2 524-7 ####IRVIN MUNGUIA ([id number])[facility] ([facility])[address] [place] [address] 98020 Lactate [Moles/Vol] 2.1 mmol/L High 0.4-2.0 [facility] Comment on above: Order Comment: Venip uncture immediately after or during the administration of Metamizole may lead to falsely low results. Testing should be performed immediatelyprior to Metamizole dosing. Performed By: #### 2 524-7 ####IRVIN MUNGUIA ([id number])[facility] ([facility])[address] [place] [address] 96765 PT Coag (PPP) [Time]on 04-03 INR Coag (PPP) [Relative time] 1.7 High 0.9-1.1 [facility] Comment on above: Performed By: #### 5 902-2 ####IRVIN MUNGUIA ([id number])[facility] ([facility])[address] [place] [address] 35590 Triacylglycerol lipaseon Lipase [Catalytic activity/Vol] 55 U/L Normal 9-82 [facility] Comment on above: Order Comment: Venip uncture immediately after or during the administration of Metamizole may lead to falsely low results. Testing should be performed immediately prior to Metamizole dosing. Performed By: #### 3 040-3 ####IRVIN MUNGUIA ([id number])[facility] ([facility])[address] [place] [address] 74209 Urinalysis complete W Reflex Culture panel (U)on 04-03-2024 Appearance (U) Clear Normal Clear [facility] Comment on above: Performed By: #### 5 8077-9 ####IRVIN MUNGUIA ([id number])[facility] ([facility])[address] [place] [address] 40122 Bilirubin (U) [Mass/Vol] Negative Normal NEGATIVE [facility] Comment on above: Performed By: #### 5 8077-9 ####IRVIN MUNGUIA ([id number])[facility] ([facility])[address] [place], [place] [address] Color (U) Light-Yellow Normal Light-Yellow , Yellow, Dark-Yellow [facility] Comment on above: Performed By: #### 5 8077-9 ####IRVIN MUNGUIA ([id number])[facility] ([facility])[address] [place] [address] Epithelial cells.squamous Auto (Urine sed) [#/Area] 1-9 (SPARSE) Normal Reference range not established. [facility] Comment on above: Performed By: #### 5 8077-9 ####IRVIN MUNGUIA ([id number])[facility] ([facility])[address] [place] [address] 43733 Glucose Auto test strip (U) [Mass/Vol] Normal Normal Normal [facility] Comment on above: Performed By: #### 5 8077-9 ####IRVIN MUNGUIA ([id number])[facility] ([facility])[address] [place] [address] 12570 Ketones (U) [Mass/Vol] Negative Normal NEGATIVE [facility] Comment on above: Performed By: #### 5 8077-9 ####IRVIN MUNGUIA ([id number])[facility])[address] [place] [address] 44641 Leukocyte esterase Auto test strip Ql (U) Negative Normal NEGATIVE [facility] Comment on above: Performed By: #### 5 8077-9 ####IRVIN MUNGUIA ([id number])[facility] ([facility])[address] [place] [address] 47903 Mucus Auto (Urine sed) [#/Area] FEW Normal Reference range not established. [facility] Comment on above: Performed By: #### 5 8077-9 ####IRVIN MUNGUIA ([id number])[facility])[address] [place] [address] 75697 Nitrite Auto test strip Ql (U) Negative Normal NEGATIVE [facility] Comment on above: Performed By: #### 5 8077-9 ####IRVIN MUNGUIA ([id number])[facility] ([facility])[address] [place] [address] pH (U) 6.0 [pH] Normal 5.0, 5.5, 6.0, 6.5, 7.0, 7.5, 8.0 [facility] Comment on above: Performed By: #### 5 8077-9 ####IRVIN MUNGUIA ([id number])[facility] ([facility])[address] [place] [address] Protein (U) [Mass/Vol] 10 (TRACE) Normal NEGATIVE, 10 (TRACE), 20 (TRACE) [facility] Comment on above: Performed By: #### 5 8077-9 ####IRVIN MUNGUIA ([id number])[facility] ([facility])[address] [place] [address] RBC (U) [#/Vol] Negative Normal NEGATIVE [facility] Comment on above: Performed By: #### 5 8077-9 ####IRVIN MUNGUIA ([id number])[facility])[address] [place] [address] RBC Auto (Urine sed) [#/Area] NONE Normal NONE, 1-2, 3-5 [facility] Comment on above: Performed By: #### 5 8077-9 ####IRVIN MUNGUIA ([id number])[facility] ([facility])[address] [place] [address] Specific gravity (U) [Rel density] 1.025 Normal 1.005-1.035 [facility] Comment on above: Performed By: #### 5 8077-9 ####IRVIN MUNGUIA ([id number])[facility] ([facility])[address] [place] [address] Urobilinogen (U) [Mass/Vol] Normal Normal Normal [facility] Comment on above: Performed By: #### 5 8077-9 ####IRVIN MUNGUIA ([id number])[facility] ([facility])[address] [place] [address] 86689 WBC Auto (Urine sed) [#/Area] NONE Normal 1-5, NONE [facility] Comment on above: Performed By: #### 5 8077-9 ####IRVIN MUNGUIA ([id number])[facility])[address] [place] [address] 15677 CBC W Auto Differential pane l (Bld)on 03-30-2024 Basophils (Bld) [#/Vol] 0.04 x10*3/uL Normal 0.00-0.10 [facility] Comment on above: Performed By: #### 5 7021-8 ####IRVIN MUNGUIA ([id number])[facility] ([facility])[address] [place] [address] 12779 Basophils/100 WBC (Bld) 0.3 % Normal 0.0-2.0 [facility] Comment on above: Performed By: #### 5 7021-8 ####IRVIN MUNGUIA ([id number])[facility] ([facility])[address] [place] [address] 68034 Eosinophils (Bld) [#/Vol] 0.08 x10*3/uL Normal 0.00-0.70 [facility] Comment on above: Performed By: #### 5 7021-8 ####IRVIN MUNGUIA ([id number])[facility])[address] [place] [address] 14325 Eosinophils/100 WBC (Bld) 0.6 % Normal 0.0-6.0 [facility] Comment on above: Performed By: #### 5 7021-8 ####IRVIN MUNGUIA ([id number])[facility])[address] [place] [address] 79382 Erythrocyte distribution width (RBC) [Ratio] 14.0 % Normal 11.5-14.5 [facility] Comment on above: Performed By: #### 5 7021-8 ####IRVIN MUNGUIA ([id number])[facility] ([facility])[address] [place] [address] Hematocrit (Bld) [Volume fraction] 34.3 % Low 36.0-46.0 [facility] Comment on above: Performed By: #### 5 7021-8 ####IRVIN MUNGUIA ([id number])[facility])[address] [place] [address] 95372 Hemoglobin (Bld) [Mass/Vol] 10.4 g/dL Low 12.0-16.0 [facility] Comment on above: Performed By: #### 5 7021-8 ####IRVIN MUNGUIA ([id number])[facility])[address] [place] [address] 10115 Immature granulocytes (Bld) [#/Vol] 0.09 x10*3/uL Normal 0.00-0.70 [facility] Comment on above: Performed By: #### 5 7021-8 ####IRVIN MUNGUIA ([id number])[facility])[address] [place] [address] 07093 Immature granulocytes/100 WBC (Bld) 0.7 % Normal 0.0-0.9 [facility] Comment on above: Result Comment: Debbie ture Granulocyte Count (IG) includes promyelocytes, myelocytes and metamyelocytes but does not include bands. Percent differential counts (%) should be interpreted in the context of the absolute cell counts (cells/UL). Performed By: #### 5 7021-8 ####IRVIN MUNGUIA ([id number])[facility] ([facility])[address] [place] [address] 86360 Lymphocytes (Bld) [#/Vol] 2.47 x10*3/uL Normal 1.20-4.80 [facility] Comment on above: Performed By: #### 5 7021-8 ####IRVIN MUNGUIA ([id number])[facility] ([facility])[address] [place] [address] 07067 Lymphocytes/100 WBC (Bld) 19.7 % Normal 13.0-44.0 [facility] Comment on above: Performed By: #### 5 7021-8 ####IRVIN MUNGUIA ([id number])[facility] ([facility])[address] [place] [address] 60677 MCH (RBC) [Entitic mass] 26.0 pg Normal 26.0-34.0 [facility] Comment on above: Performed By: #### 5 7021-8 ####IRVIN MUNGUIA ([id number])[facility])[address] [place] [address] 06772 MCHC (RBC) [Mass/Vol] 30.3 g/dL Low 32.0-36.0 [facility] Comment on above: Performed By: #### 5 7021-8 ####IRVIN MUNGUIA ([id number])[facility] ([facility])[address] [place], [place] [address] MCV (RBC) [Entitic vol] 86 fL Normal 80-100 [facility] Comment on above: Performed By: #### 5 7021-8 ####IRVIN MUNGUIA ([id number])[facility])[address] [place] [address] 83476 Monocytes (Bld) [#/Vol] 0.64 x10*3/uL Normal 0.10-1.00 [facility] Comment on above: Performed By: #### 5 7021-8 ####IRVIN MUNGUIA ([id number])[facility] ([facility])[address] [place] [address] 85767 Monocytes/100 WBC (Bld) 5.1 % Normal 2.0-10.0 [facility] Comment on above: Performed By: #### 5 7021-8 ####IRVIN MUNGUIA ([id number])[facility])[address] [place] [address] 73235 Neutrophils (Bld) [#/Vol] 9.19 x10*3/uL High 1.20-7.70 [facility] Comment on above: Result Comment: Perc ent differential counts (%) should be interpreted in the context of the absolute cell counts (cells/uL). Performed By: #### 5 7021-8 ####IRVIN MUNGUIA ([id number])[facility] ([facility])[address] [place] [address] 67467 Neutrophils/100 WBC (Bld) 73.6 % Normal 40.0-80.0 [facility] Comment on above: Performed By: #### 5 7021-8 ####IRVIN MUNGUIA ([id number])[facility])[address] [place] [address] 95104 Nucleated RBC/100 WBC (Bld) [Ratio] 0.0 /100 WBCs Normal 0.0-0.0 [facility] Comment on above: Performed By: #### 5 7021-8 ####IRVIN MUNGUIA ([id number])[facility])[address] [place] [address] 52880 Platelets (Bld) [#/Vol] 332 x10*3/uL Normal 150-450 [facility] Comment on above: Result Comment: Plat elet count verified by smear review. Performed By: #### 5 7021-8 ####IRVIN MUNGUIA ([id number])[facility])[address] [place] [address] 17339 RBC (Bld) [#/Vol] 4.00 x10*6/uL Normal 4.00-5.20 [facility] Comment on above: Performed By: #### 5 7021-8 ####IRVIN MUNGUIA ([id number])[facility])[address] [place] [address] 12541 WBC (Bld) [#/Vol] 12.5 x10*3/uL High 4.4-11.3 [facility] Comment on above: Performed By: #### 5 7021-8 ####IRVIN MUNGUIA ([id number])[facility])[address] [place] [address] 14822 Comprehensive metabolic 2000 panelon 03-30-2024 Albumin BCP dye [Mass/Vol] 3.8 g/dL Normal 3.4-5.0 [facility] Comment on above: Performed By: #### 2 4323-8 ####IRVIN MUNGUIA ([id number])[facility])[address] [place] [address] ALP [Catalytic activity/Vol] 140 U/L High 33-110 [facility] Comment on above: Performed By: #### 2 4323-8 ####IRVIN MUNGUIA ([id number])[facility])[address] [place] [address] ALT With P-5'-P [Catalytic activity/Vol] 24 U/L Normal 7-45 [facility] Comment on above: Result Comment: Evelyn ents treated with Sulfasalazine may generate falsely decreased results for ALT. Performed By: #### 2 432-8 ####IRVIN MUNGUIA ([id number])[facility])[address] [place] [address] 05774 Anion gap [Moles/Vol] 15 mmol/L Normal 10-20 [facility] Comment on above: Performed By: #### 2 432-8 ####IRVIN MUNGUIA ([id number])[facility])[address] [place] [address] AST With P-5'-P [Catalytic activity/Vol] 19 U/L Normal 9-39 [facility] Comment on above: Performed By: #### 2 432-8 ####IRVIN MUNGUIA ([id number])[facility])[address] [place] [address] Bilirubin [Mass/Vol] 0.3 mg/dL Normal 0.0-1.2 [facility] Comment on above: Performed By: #### 2 432-8 ####IRVIN MUNGUIA ([id number])[facility])[address] [place] [address] Calcium [Mass/Vol] 8.7 mg/dL Normal 8.6-10.3 [facility] Comment on above: Performed By: #### 2 4323-8 ####IRVIN MUNGUIA ([id number])[facility])[address] [place] [address] Chloride [Moles/Vol] 101 mmol/L Normal 98-107 [facility] Comment on above: Performed By: #### 2 4323-8 ####IRVIN MUNGUIA ([id number])[facility])[address] [place] [address] 40307 CO2 [Moles/Vol] 23 mmol/L Normal 21-32 [facility] Comment on above: Performed By: #### 2 4323-8 ####IRVIN MUNGUIA ([id number])[facility])[address] [place] [address] 53192 Creatinine [Mass/Vol] 0.72 mg/dL Normal 0.50-1.05 [facility] Comment on above: Performed By: #### 2 4323-8 ####IRVIN MUNGUIA ([id number])[facility])[address] [place] [address] 47667 GFR/1.73 sq M.predicted MDRD (S/P/Bld) [Vol rate/Area] mL/min/{1.73_m2} Normal >60 [facility] Comment on above: Result Comment: Calc ulations of estimated GFR are performed using the 2020 CKD-EPI Study Refit equation without the race variable for the IDMS-Traceable creatinine methods.https://jasn.asnjournals.org/content/early// N.0682713373 Performed By: #### 2 4323-8 ####IRVIN MUNGUIA ([id number])[facility])[address] [place] [address] 41298 Glucose [Mass/Vol] 173 mg/dL High 74-99 [facility] Comment on above: Performed By: #### 2 4323-8 ####IRVIN MUNGUIA ([id number])[facility])[address] [place] [address] 34784 Potassium [Moles/Vol] 3.5 mmol/L Normal 3.5-5.3 [facility] Comment on above: Performed By: #### 2 4323-8 ####IRVIN MUNGUIA ([id number])[facility])[address] [place] [address] 49320 Protein [Mass/Vol] 7.4 g/dL Normal 6.4-8.2 [facility] Comment on above: Performed By: #### 2 4323-8 ####IRVIN MUNGUIA ([id number])[facility])[address] [place] [address] 12684 Sodium [Moles/Vol] 135 mmol/L Low 136-145 [facility] Comment on above: Performed By: #### 2 4323-8 ####IRVIN MUNGUIA ([id number])[facility])[address] [place] [address] 74775 Urea nitrogen [Mass/Vol] 12 mg/dL Normal 6-23 [facility] Comment on above: Performed By: #### 2 4323-8 ####IRVIN MUNGUIA ([id number])[facility])[address] [place] [address] 69424 Lactateon 03-30-2024 Lactate [Moles/Vol] 1.6 mmol/L Normal 0.4-2.0 [facility] Comment on above: Order Comment: Venip uncture immediately after or during the administration of Metamizole may lead to falsely low results. Testing should be performed immediatelyprior to Metamizole dosing. Performed By: #### 2 524-7 ####IRVIN MUNGUIA ([id number])[facility] ([facility])[address] [place] [address] 01753 Lactate [Moles/Vol] 2.5 mmol/L High 0.4-2.0 [facility] Comment on above: Order Comment: Venip uncture immediately after or during the administration of Metamizole may lead to falsely low results. Testing should be performed immediatelyprior to Metamizole dosing. Performed By: #### 2 524-7 ####IRVIN MUNGUIA ([id number])[facility] ([facility])[address] [place] [address] 09766 Triacylglycerol lipaseon Lipase [Catalytic activity/Vol] 57 U/L Normal 9-82 [facility] Comment on above: Order Comment: Venip uncture immediately after or during the administration of Metamizole may lead to falsely low results. Testing should be performed immediately prior to Metamizole dosing. Performed By: #### 3 040-3 ####IRVIN MUNGUIA ([id number])[facility] ([facility])[address] [place] [address] CBC W Auto Differential pane l (Bld)on 03-24-2024 Basophils (Bld) [#/Vol] 0.03 x10*3/uL Normal 0.00-0.10 [facility] Comment on above: Performed By: #### 5 7021-8 ####ANDI Cotter ([id number])[facility] ([facility])[id number] [place] [address] 79104 Basophils/100 WBC (Bld) 0.7 % Normal 0.0-2.0 [facility] Comment on above: Performed By: #### 5 7021-8 ####ANDI Cotter ([id number])[facility] ([facility])[address] [place] [address] Eosinophils (Bld) [#/Vol] 0.10 x10*3/uL Normal 0.00-0.70 [facility] Comment on above: Performed By: #### 5 7021-8 ####ANDI Cotter ([id number])[facility] ([facility])[address] [place] [address] Eosinophils/100 WBC (Bld) 2.2 % Normal 0.0-6.0 [facility] Comment on above: Performed By: #### 5 7021-8 ####ANDI Cotter ([id number])[facility] ([facility])[address] [place] [address] Erythrocyte distribution width (RBC) [Ratio] 14.2 % Normal 11.5-14.5 [facility] Comment on above: Performed By: #### 5 7021-8 ####ANDI Cotter ([id number])[facility] ([facility])[address] [place] [address] Hematocrit (Bld) [Volume fraction] 43.5 % Normal 36.0-46.0 [facility] Comment on above: Performed By: #### 5 7021-8 ####ANDI Cotter ([id number])[facility] ([facility])[address] [place] [address] Hemoglobin (Bld) [Mass/Vol] 13.4 g/dL Normal 12.0-16.0 [facility] Comment on above: Performed By: #### 5 7021-8 ####ANDI Cotter ([id number])[facility] ([facility])[id number] [place] [address] 12864 Immature granulocytes (Bld) [#/Vol] 0.07 x10*3/uL Normal 0.00-0.70 [facility] Comment on above: Performed By: #### 5 7021-8 ####ANDI Cotter ([id number])[facility] ([facility])[id number] [place] [address] 03063 Immature granulocytes/100 WBC (Bld) 1.5 % High 0.0-0.9 [facility] Comment on above: Result Comment: Debbie ture Granulocyte Count (IG) includes promyelocytes, myelocytes and metamyelocytes but does not include bands. Percent differential counts (%) should be interpreted in the context of the absolute cell counts (cells/UL). Performed By: #### 5 7021-8 ####ANDI Cotter ([id number])[facility] ([facility])[address] [place] [address] Lymphocytes (Bld) [#/Vol] 1.16 x10*3/uL Low 1.20-4.80 [facility] Comment on above: Performed By: #### 5 7021-8 ####ADNI Cotter ([id number])[facility] ([facility])[address] [place] [address] Lymphocytes/100 WBC (Bld) 25.6 % Normal 13.0-44.0 [facility] Comment on above: Performed By: #### 5 7021-8 ####ANDI Cotter ([id number])[facility] ([facility])[address] [place] [address] MCH (RBC) [Entitic mass] 26.3 pg Normal 26.0-34.0 [facility] Comment on above: Performed By: #### 5 7021-8 ####ANDI Cotter ([id number])[facility] ([facility])[id number] [place] [address] 49373 MCHC (RBC) [Mass/Vol] 30.8 g/dL Low 32.0-36.0 [facility] Comment on above: Performed By: #### 5 7021-8 ####ANDI Cotter ([id number])[facility] ([facility])[address] [place] [address] 94167 MCV (RBC) [Entitic vol] 86 fL Normal 80-100 [facility] Comment on above: Performed By: #### 5 7021-8 ####ANDI Cotter ([id number])[facility] ([facility])[address] [place] [address] [id number] Monocytes (Bld) [#/Vol] 0.28 x10*3/uL Normal 0.10-1.00 [facility] Comment on above: Performed By: #### 5 7021-8 ####ANDI Cotter ([id number])[facility] ([facility])[address] [place] [address] Monocytes/100 WBC (Bld) 6.2 % Normal 2.0-10.0 [facility] Comment on above: Performed By: #### 5 7021-8 ####ANDI Cotter ([id number])[facility] ([facility])[id number] [place] [address] 46922 Neutrophils (Bld) [#/Vol] 2.89 x10*3/uL Normal 1.20-7.70 [facility] Comment on above: Result Comment: Perc ent differential counts (%) should be interpreted in the context of the absolute cell counts (cells/uL). Performed By: #### 5 7021-8 ####ANDI Cotter ([id number])[facility] ([facility])[id number] [place] [address] Neutrophils/100 WBC (Bld) 63.8 % Normal 40.0-80.0 [facility] Comment on above: Performed By: #### 5 7021-8 ####ANDI CHAUDHARY L ([id number])[facility] ([facility])[id number] [place] [address] 43942 Nucleated RBC/100 WBC (Bld) [Ratio] 0.0 /100 WBCs Normal 0.0-0.0 [facility] Comment on above: Performed By: #### 5 7021-8 ####ANDI CHAUDHARY L ([id number])[facility] ([facility])[id number] [place] [address] 27119 Platelets (Bld) [#/Vol] 190 x10*3/uL Normal 150-450 [facility] Comment on above: Performed By: #### 5 7021-8 ####ANDI Cotter ([id number])[facility] ([facility])[id number] [place] [address] 38144 RBC (Bld) [#/Vol] 5.09 x10*6/uL Normal 4.00-5.20 [facility] Comment on above: Performed By: #### 5 7021-8 ####ANDI CHAUDHARY L ([id number])[facility] ([facility])[address] [place] [address] 98125 WBC (Bld) [#/Vol] 4.5 x10*3/uL Normal 4.4-11.3 [facility] Comment on above: Performed By: #### 5 7021-8 ####ANDI RAJPUTMOTZDAVID L ([id number])[facility] ([facility])[address] [place] [address] Comprehensive metabolic 2000 panelon 03-24-2024 Albumin BCP dye [Mass/Vol] 3.6 g/dL Normal 3.4-5.0 [facility] Comment on above: Performed By: #### 2 4323-8 ####ANDI Cotter ([id number])[facility] ([facility])[address] [place] [address] ALP [Catalytic activity/Vol] 166 U/L High 33-110 [facility] Comment on above: Performed By: #### 2 4323-8 ####ANDI Cotter ([id number])[facility] ([facility])[address] [place] [address] ALT With P-5'-P [Catalytic activity/Vol] 35 U/L Normal 7-45 [facility] Comment on above: Result Comment: Evelyn ents treated with Sulfasalazine may generate falsely decreased results for ALT. Performed By: #### 2 4323-8 ####ANDI Cotter ([id number])[facility] ([facility])[address] [place] [address] Anion gap [Moles/Vol] 12 mmol/L Normal 10-20 [facility] Comment on above: Performed By: #### 2 4323-8 ####ANDI Cotter ([id number])[facility] ([facility])[address] [place] [address] AST With P-5'-P [Catalytic activity/Vol] 13 U/L Normal 9-39 [facility] Comment on above: Performed By: #### 2 4323-8 ####ANDI Cotter ([id number])[facility] ([facility])[address] [place] [address] Bilirubin [Mass/Vol] 0.3 mg/dL Normal 0.0-1.2 [facility] Comment on above: Performed By: #### 2 4323-8 ####ANDI Cotter ([id number])[facility] ([facility])[address] [place] [address] Calcium [Mass/Vol] 9.2 mg/dL Normal 8.6-10.6 [facility] Comment on above: Performed By: #### 2 4323-8 ####ANDI Cotter ([id number])[facility] ([facility])[address] [place] [address] Chloride [Moles/Vol] 101 mmol/L Normal 98-107 [facility] Comment on above: Performed By: #### 2 4323-8 ####ANDI CHAUDHARY L ([id number])[facility] ([facility])[address] [place] [address] CO2 [Moles/Vol] 26 mmol/L Normal 21-32 [facility] Comment on above: Performed By: #### 2 4323-8 ####ANDI Cotter ([id number])[facility] ([facility])[address] [place] [address] Creatinine [Mass/Vol] 0.54 mg/dL Normal 0.50-1.05 [facility] Comment on above: Performed By: #### 2 4323-8 ####ANDI Cotter ([id number])[facility] ([facility])[address] [place] [address] GFR/1.73 sq M.predicted MDRD (S/P/Bld) [Vol rate/Area] mL/min/{1.73_m2} Normal >60 [facility] Comment on above: Result Comment: Calc ulations of estimated GFR are performed using the 2020 CKD-EPI Study Refit equation without the race variable for the IDMS-Traceable creatinine methods.https://jasn.asnjournals.org/content/early/ N.0901281271 Performed By: #### 2 4323-8 ####ANDI Cotter ([id number])[facility] ([facility])[address] [place] [address] Glucose [Mass/Vol] 164 mg/dL High 74-99 [facility] Comment on above: Performed By: #### 2 4323-8 ####ANDI Cotter ([id number])[facility] ([facility])[address] [place] [address] Potassium [Moles/Vol] 3.6 mmol/L Normal 3.5-5.3 [facility] Comment on above: Performed By: #### 2 4323-8 ####ANDI Cotter ([id number])[facility] ([facility])[address] [place] [address] 79171 Protein [Mass/Vol] 6.9 g/dL Normal 6.4-8.2 [facility] Comment on above: Performed By: #### 2 4323-8 ####ANDI Cotter ([id number])[facility] ([facility])[address] [place] [address] 43221 Sodium [Moles/Vol] 135 mmol/L Low 136-145 [facility] Comment on above: Performed By: #### 2 4323-8 ####ANDI Cotter ([id number])[facility] ([facility])[address] [place] [address] 13005 Urea nitrogen [Mass/Vol] 11 mg/dL Normal 6-23 [facility] Comment on above: Performed By: #### 2 4323-8 ####ANDI Cotter ([id number])[facility] ([facility])[id number] [place] [address] Glucose Test strip manual (B ld) [Mass/Vol]on 03-24-2024 Glucose [Mass/Vol] 150 mg/dL High 74-99 [facility] Comment on above: Performed By: #### 2 341-6 ####ANDI Cotter ([id number])[facility] ([facility])[id number] [place] [address] 76966 Glucose [Mass/Vol] 192 mg/dL High 74-99 [facility] Comment on above: Performed By: #### 2 341-6 ####ANDI Cotter ([id number])[facility] ([facility])[address] [place] [address]47[address] Heparin.unfractionatedon Heparin unfractionated Chromogenic method Qn (PPP) 0.4 IU/mL Normal See Comment Below for Therapeutic Ranges [facility] Comment on above: Order Comment: Obtai n 4 hours after any Heparin dosage change. Nursing to release order.The therapeutic reference range for UFH may be either 0.3-0.6 IU/mL or 0.3-0.7 IU/mL based on the clinical setting for anticoagulant therapy and the associated nomogram used. For Heparin dosing guidelines based on clinical scenario and Heparin Assay results, please refer to local Pharmacy and the [facility] Guidelines for Anticoagulation Therapy available on the [facility] intranet at: [email or web address] Performed By: #### 3 274-8 ####ANDI Cotter ([id number])[facility] ([facility])[address] [place] [address]251 Magnesiumon 03-24-2024 Magnesium [Mass/Vol] 1.82 mg/dL Normal 1.60-2.40 [facility] Comment on above: Performed By: #### 1 9123-9 ####ANDI Cotter ([id number])[facility] ([facility])[address] [place] [address] 46168 PT and aPTT panel Coag (PPP) on 03-24-2024 aPTT Coag (PPP) [Time] 37 s Normal 27-38 [facility] Comment on above: Order Comment: The A PTT is no longer used for monitoring Unfractionated Heparin Therapy. For monitoring Heparin Therapy, use the Heparin Assay. Performed By: #### 3 4529-8 ####ANDI Cotter ([id number])[facility] ([facility])[address] [place] [address] INR Coag (PPP) [Relative time] 1.3 High 0.9-1.1 [facility] Comment on above: Order Comment: The A PTT is no longer used for monitoring Unfractionated Heparin Therapy. For monitoring Heparin Therapy, use the Heparin Assay. Performed By: #### 3 4529-8 ####ANDI Cotter ([id number])[facility] ([facility])[address] [place] [address] PT Coag (PPP) [Time] 14.2 s High 9.8-12.8 [facility] Comment on above: Order Comment: The A PTT is no longer used for monitoring Unfractionated Heparin Therapy. For monitoring Heparin Therapy, use the Heparin Assay. Performed By: #### 3 4529-8 ####ANDI Cotter ([id number])[facility] ([facility])[address]87 [place] [address] Phosphateon 03-24-2024 Phosphate [Mass/Vol] 4.6 mg/dL Normal 2.5-4.9 [facility] Comment on above: Result Comment: The performance characteristics of phosphorus testing in heparinized plasma have been validated by the individual laboratory site where testing is performed. Testing on heparinized plasma is not approved by the FDA; however, such approval is not necessary. Performed By: #### 2 777-1 ####ANDI Cotter ([id number])[facility] ([facility])[address] [place] [address] CBC W Auto Differential pane l (Bld)on 03-23-2024 Basophils (Bld) [#/Vol] 0.05 x10*3/uL Normal 0.00-0.10 [facility] Comment on above: Performed By: #### 5 7021-8 ####ANDI Cotter ([id number])[facility] ([facility])[address]43 [place] [address] Basophils/100 WBC (Bld) 0.6 % Normal 0.0-2.0 [facility] Comment on above: Performed By: #### 5 7021-8 ####ANDI Cotter ([id number])[facility] ([facility])[address] [place] [address] Eosinophils (Bld) [#/Vol] 0.20 x10*3/uL Normal 0.00-0.70 [facility] Comment on above: Performed By: #### 5 7021-8 ####ANDI Cotter ([id number])[facility] ([facility])[address]62 [place] [address] Eosinophils/100 WBC (Bld) 2.2 % Normal 0.0-6.0 [facility] Comment on above: Performed By: #### 5 7021-8 ####ANDI Cotter ([id number])[facility] ([facility])[address]422 [place] [address] Erythrocyte distribution width (RBC) [Ratio] 14.2 % Normal 11.5-14.5 [facility] Comment on above: Performed By: #### 5 7021-8 ####ANDI Cotter ([id number])[facility] ([facility])[address] [place] [address] 22940 Hematocrit (Bld) [Volume fraction] 32.6 % Low 36.0-46.0 [facility] Comment on above: Performed By: #### 5 7021-8 ####ANDI Cotter ([id number])[facility] ([facility])[address] [place] [address] 20684 Hemoglobin (Bld) [Mass/Vol] 10.2 g/dL Low 12.0-16.0 [facility] Comment on above: Performed By: #### 5 7021-8 ####ANDI Cotter ([id number])[facility] ([facility])[address] [place] [address] 93733 Immature granulocytes (Bld) [#/Vol] 0.07 x10*3/uL Normal 0.00-0.70 [facility] Comment on above: Performed By: #### 5 7021-8 ####ANDI Cotter ([id number])[facility] ([facility])[address]791 [place] [address] Immature granulocytes/100 WBC (Bld) 0.8 % Normal 0.0-0.9 [facility] Comment on above: Result Comment: Debbie ture Granulocyte Count (IG) includes promyelocytes, myelocytes and metamyelocytes but does not include bands. Percent differential counts (%) should be interpreted in the context of the absolute cell counts (cells/UL). Performed By: #### 5 7021-8 ####ANDI Cotter ([id number])[facility] ([facility])[address] [place] [address] Lymphocytes (Bld) [#/Vol] 2.00 x10*3/uL Normal 1.20-4.80 [facility] Comment on above: Performed By: #### 5 7021-8 ####ANDI Cotter ([id number])[facility] ([facility])[address] [place] [address] 98397 Lymphocytes/100 WBC (Bld) 22.1 % Normal 13.0-44.0 [facility] Comment on above: Performed By: #### 5 7021-8 ####ANDI Cotter ([id number])[facility] ([facility])[address] [place] [address]605 MCH (RBC) [Entitic mass] 27.2 pg Normal 26.0-34.0 [facility] Comment on above: Performed By: #### 5 7021-8 ####ANDI Cotter ([id number])[facility] ([facility])[address]176 [place] [address] MCHC (RBC) [Mass/Vol] 31.3 g/dL Low 32.0-36.0 [facility] Comment on above: Performed By: #### 5 7021-8 ####ANDI Cotter ([id number])[facility] ([facility])[address]351 [place] [address] MCV (RBC) [Entitic vol] 87 fL Normal 80-100 [facility] Comment on above: Performed By: #### 5 7021-8 ####ANDI Cotter (48151)[facility] ([facility])[address] [place] [address] 45228 Monocytes (Bld) [#/Vol] 0.58 x10*3/uL Normal 0.10-1.00 [facility] Comment on above: Performed By: #### 5 7021-8 ####ANDI Cotter ([id number])[facility] ([facility])[address]241 [place] [address] Monocytes/100 WBC (Bld) 6.4 % Normal 2.0-10.0 [facility] Comment on above: Performed By: #### 5 7021-8 ####ANDI Cotter ([id number])[facility] ([facility])[address]104 [place] [address] Neutrophils (Bld) [#/Vol] 6.16 x10*3/uL Normal 1.20-7.70 [facility] Comment on above: Result Comment: Perc ent differential counts (%) should be interpreted in the context of the absolute cell counts (cells/uL). Performed By: #### 5 7021-8 ####ANDI Cotter ([id number])[facility] ([facility])[address]89 [place] [address] Neutrophils/100 WBC (Bld) 67.9 % Normal 40.0-80.0 [facility] Comment on above: Performed By: #### 5 7021-8 ####ANDI Cotter ([id number])[facility] ([facility])[address]80 [place] [address] Nucleated RBC/100 WBC (Bld) [Ratio] 0.0 /100 WBCs Normal 0.0-0.0 [facility] Comment on above: Performed By: #### 5 7021-8 ####ANDI Cotter (75841)[facility] ([facility])[address]48 [place] [address] Platelets (Bld) [#/Vol] 291 x10*3/uL Normal 150-450 [facility] Comment on above: Performed By: #### 5 7021-8 ####ANDI Cotter ([id number])[facility] ([facility])[address]358 [place] [address] RBC (Bld) [#/Vol] 3.75 x10*6/uL Low 4.00-5.20 [facility] Comment on above: Performed By: #### 5 7021-8 ####ANDI Cotter ([id number])[facility] ([facility])[address] [place] [address] WBC (Bld) [#/Vol] 9.1 x10*3/uL Normal 4.4-11.3 [facility] Comment on above: Performed By: #### 5 7021-8 ####ANDI Cotter ([id number])[facility] ([facility])[address]661 [place] [address] Comprehensive metabolic 2000 panelon 03-23-2024 Albumin BCP dye [Mass/Vol] 3.6 g/dL Normal 3.4-5.0 [facility] Comment on above: Performed By: #### 2 4323-8 ####ANDI Cotter ([id number])[facility] ([facility])[address]651 [place] [address] ALP [Catalytic activity/Vol] 195 U/L High 33-110 [facility] Comment on above: Performed By: #### 2 4323-8 ####ANDI Cotter ([id number])[facility] ([facility])[address]871 [place] [address] ALT With P-5'-P [Catalytic activity/Vol] 49 U/L High 7-45 [facility] Comment on above: Result Comment: Evelyn ents treated with Sulfasalazine may generate falsely decreased results for ALT. Performed By: #### 2 4323-8 ####ANDI Cotter ([id number])[facility] ([facility])[address] [place] [address] Anion gap [Moles/Vol] 18 mmol/L Normal 10-20 [facility] Comment on above: Performed By: #### 2 4323-8 ####ANDI CHAUDHARY L ([id number])[facility] ([facility])[address]15 [place] [address] AST With P-5'-P [Catalytic activity/Vol] 17 U/L Normal 9-39 [facility] Comment on above: Performed By: #### 2 4323-8 ####ANDI Cotter ([id number])[facility] ([facility])[address] [place] [address] Bilirubin [Mass/Vol] 0.3 mg/dL Normal 0.0-1.2 [facility] Comment on above: Performed By: #### 2 4323-8 ####ANDI Cotter ([id number])[facility] ([facility])[address]491 [place] [address] Calcium [Mass/Vol] 9.4 mg/dL Normal 8.6-10.6 [facility] Comment on above: Performed By: #### 2 4323-8 ####ANDI Cotter ([id number])[facility] ([facility])[address]122 [place] [address] Chloride [Moles/Vol] 96 mmol/L Low 98-107 [facility] Comment on above: Performed By: #### 2 4323-8 ####ANDI CHAUDHARY L ([id number])[facility] ([facility])[address]22 [place] [address] CO2 [Moles/Vol] 23 mmol/L Normal 21-32 [facility] Comment on above: Performed By: #### 2 4323-8 ####ANDI CHAUDHARY L ([id number])[facility] ([facility])[address]11 [place] [address] Creatinine [Mass/Vol] 0.61 mg/dL Normal 0.50-1.05 [facility] Comment on above: Performed By: #### 2 4323-8 ####ANDI CHAUDHARY L ([id number])[facility] ([facility])[address]73 [place] [address] GFR/1.73 sq M.predicted MDRD (S/P/Bld) [Vol rate/Area] mL/min/{1.73_m2} Normal >60 [facility] Comment on above: Result Comment: Calc ulations of estimated GFR are performed using the 2020 CKD-EPI Study Refit equation without the race variable for the IDMS-Traceable creatinine methods.https://jasn.asnjournals.org/content// N.5635153342 Performed By: #### 2 4323-8 ####ANDI Cotter ([id number])[facility] ([facility])[address]64 [place] [address] Glucose [Mass/Vol] 139 mg/dL High 74-99 [facility] Comment on above: Performed By: #### 2 4323-8 ####ANDI Cotter ([id number])[facility] ([facility])[address]33 [place] [address] Potassium [Moles/Vol] 3.7 mmol/L Normal 3.5-5.3 [facility] Comment on above: Performed By: #### 2 4323-8 ####ANDI Cotter ([id number])[facility] ([facility])[address]199 [place] [address] Protein [Mass/Vol] 7.4 g/dL Normal 6.4-8.2 [facility] Comment on above: Performed By: #### 2 4323-8 ####ANDI CHAUDHARY L (86871)[facility] ([facility])[address]196 [place] [address] Sodium [Moles/Vol] 133 mmol/L Low 136-145 [facility] Comment on above: Performed By: #### 2 4323-8 ####ANDI CHAUDHARY L (50271)[facility] ([facility])[address]482 [place] [address] Urea nitrogen [Mass/Vol] 12 mg/dL Normal 6-23 [facility] Comment on above: Performed By: #### 2 4323-8 ####ANDI CHAUDHARY L ([id number])[facility] ([facility])[address]33 [place] [address] Glucose Test strip manual (B ld) [Mass/Vol]on 03-23-2024 Glucose [Mass/Vol] 154 mg/dL High -[address] [place] [address] Comment on above: Performed By: #### 2 341-6 ####ANDI Cotter ([id number])[facility] ([facility])[address]39 [place] [address] Glucose [Mass/Vol] 155 mg/dL High [address] [place] [address] Comment on above: Performed By: #### 2 341-6 ####ANDI Cotter ([id number])[facility] ([facility])[address]375 [place] [address] Glucose [Mass/Vol] 139 mg/dL High [address] [place] [address] Comment on above: Performed By: #### 2 341-6 ####ANDI Cotter ([id number])[facility] ([facility])[address]119 [place] [address] Glucose [Mass/Vol] 138 mg/dL High [address] [place] [address] Comment on above: Performed By: #### 2 341-6 ####ANDI Cotter ([id number])[facility] ([facility])[address] [place] [address] Heparin.unfractionatedon Heparin unfractionated Chromogenic method Qn (PPP) 0.5 IU/mL Normal See Comment Below for Therapeutic Ranges [facility] Comment on above: Order Comment: When two (2) consecutive Heparin Assay, UFH results obtained 4 hours apart are therapeutic, obtain STAT Heparin Assay, UFH every a.m. Nursing to release order.The therapeutic reference range for UFH may be either 0.3-0.6 IU/mL or 0.3-0.7 IU/mL based on the clinical setting for anticoagulant therapy and the associated nomogram used. For Heparin dosing guidelines based on clinical scenario and Heparin Assay results, please refer to local Pharmacy and the [facility] Guidelines for Anticoagulation Therapy available on the [facility] intranet at: [email or web address] Performed By: #### 3 274-8 ####ANDI Cotter ([id number])[facility] ([facility])[address]79 [place] [address] Heparin unfractionated Chromogenic method Qn (PPP) 0.1 IU/mL Normal See Comment Below for Therapeutic Ranges [facility] Comment on above: Order Comment: When two (2) consecutive Heparin Assay, UFH results obtained 4 hours apart are therapeutic, obtain STAT Heparin Assay, UFH every a.m. Nursing to release order.The therapeutic reference range for UFH may be either 0.3-0.6 IU/mL or 0.3-0.7 IU/mL based on the clinical setting for anticoagulant therapy and the associated nomogram used. For Heparin dosing guidelines based on clinical scenario and Heparin Assay results, please refer to local Pharmacy and the [facility] Guidelines for Anticoagulation Therapy available on the [facility] intranet at: [email or web address] Performed By: #### 3 274-8 ####ANDI Cotter ([id number])[facility] ([facility])[address] [place] [address] Magnesiumon 03-23-2024 Magnesium [Mass/Vol] 1.74 mg/dL Normal 1.60-2.40 [facility] Comment on above: Performed By: #### 1 9123-9 ####ANDI Cotter ([id number])[facility] ([facility])[address] [place] [address] PT and aPTT panel Coag (PPP) on 03-23-2024 aPTT Coag (PPP) [Time] 39 s High 27-38 [facility] Comment on above: Order Comment: The A PTT is no longer used for monitoring Unfractionated Heparin Therapy. For monitoring Heparin Therapy, use the Heparin Assay. Performed By: #### 3 4529-8 ####ANDI Cotter ([id number])[facility] ([facility])[address] [place] [address] INR Coag (PPP) [Relative time] 1.1 Normal 0.9-1.1 [facility] Comment on above: Order Comment: The A PTT is no longer used for monitoring Unfractionated Heparin Therapy. For monitoring Heparin Therapy, use the Heparin Assay. Performed By: #### 3 4529-8 ####ANDI Cotter ([id number])[facility] ([facility])[address] [place] [address] PT Coag (PPP) [Time] 12.6 s Normal 9.8-12.8 [facility] Comment on above: Order Comment: The A PTT is no longer used for monitoring Unfractionated Heparin Therapy. For monitoring Heparin Therapy, use the Heparin Assay. Performed By: #### 3 4529-8 ####ANDI Cotter ([id number])[facility] ([facility])[address] [place] [address] Phosphateon 03-23-2024 Phosphate [Mass/Vol] 5.4 mg/dL High 2.5-4.9 [facility] [facility] Comment on above: Result Comment: The performance characteristics of phosphorus testing in heparinized plasma have been validated by the individual laboratory site where testing is performed. Testing on heparinized plasma is not approved by the FDA; however, such approval is not necessary. Performed By: #### 2 777-1 ####ANDI Cotter ([id number])[facility] ([facility])[address] [place] [address] CBC W Auto Differential pane l (Bld)on 03-22-2024 Basophils (Bld) [#/Vol] 0.02 x10*3/uL Normal 0.00-0.10 [facility] Comment on above: Performed By: #### 5 7021-8 ####ANDI Cotter ([id number])[facility] ([facility])[address] [place] [address] Basophils/100 WBC (Bld) 0.2 % Normal 0.0-2.0 [facility] Comment on above: Performed By: #### 5 7021-8 ####ANDI Cotter ([id number])[facility] ([facility])[address] [place] [address] Eosinophils (Bld) [#/Vol] 0.06 x10*3/uL Normal 0.00-0.70 [facility] Comment on above: Performed By: #### 5 7021-8 ####ANDI Cotter ([id number])[facility] ([facility])[id number] [place] [address] Eosinophils/100 WBC (Bld) 0.6 % Normal 0.0-6.0 [facility] Comment on above: Performed By: #### 5 7021-8 ####ANDI Cotter ([id number])[facility] ([facility])[address] [place] [address] Erythrocyte distribution width (RBC) [Ratio] 13.8 % Normal 11.5-14.5 [facility] Comment on above: Performed By: #### 5 7021-8 ####ANDI Cotter ([id number])[facility] ([facility])[address] [place] [address] Hematocrit (Bld) [Volume fraction] 31.0 % Low 36.0-46.0 [facility] Comment on above: Performed By: #### 5 7021-8 ####ANDI Cotter ([id number])[facility] ([facility])[address] [place] [address] Hemoglobin (Bld) [Mass/Vol] 9.8 g/dL Low 12.0-16.0 [facility] Comment on above: Performed By: #### 5 7021-8 ####ANDI Cotter ([id number])[facility] ([facility])[address] [place] [address] Immature granulocytes (Bld) [#/Vol] 0.10 x10*3/uL Normal 0.00-0.70 [facility] Comment on above: Performed By: #### 5 7021-8 ####ANDI Cotter ([id number])[facility] ([facility])[address] [place] [address] Immature granulocytes/100 WBC (Bld) 1.0 % High 0.0-0.9 [facility] Comment on above: Result Comment: Debbie ture Granulocyte Count (IG) includes promyelocytes, myelocytes and metamyelocytes but does not include bands. Percent differential counts (%) should be interpreted in the context of the absolute cell counts (cells/UL). Performed By: #### 5 7021-8 ####ANDI Cotter ([id number])[facility] ([facility])[address] [place] [address] Lymphocytes (Bld) [#/Vol] 2.27 x10*3/uL Normal 1.20-4.80 [facility] Comment on above: Performed By: #### 5 7021-8 ####ANDI Cotter ([id number])[facility] ([facility])[address] [place] [address] Lymphocytes/100 WBC (Bld) 22.8 % Normal 13.0-44.0 [facility] Comment on above: Performed By: #### 5 7021-8 ####ANDI Cotter ([id number])[facility] ([facility])[address] [place] [address] MCH (RBC) [Entitic mass] 26.6 pg Normal 26.0-34.0 [facility] Comment on above: Performed By: #### 5 7021-8 ####ANDI Cotter ([id number])[facility] ([facility])[address] [place] [address] MCHC (RBC) [Mass/Vol] 31.6 g/dL Low 32.0-36.0 [facility] Comment on above: Performed By: #### 5 7021-8 ####ANDI Cotter ([id number])[facility] ([facility])[address] [place] [address] MCV (RBC) [Entitic vol] 84 fL Normal 80-100 [facility] Comment on above: Performed By: #### 5 7021-8 ####ANDI Cotter ([id number])[facility] ([facility])[address] [place] [address] Monocytes (Bld) [#/Vol] 0.43 x10*3/uL Normal 0.10-1.00 [facility] Comment on above: Performed By: #### 5 7021-8 ####ANDI Cotter ([id number])[facility] ([facility])[address] [place] [address] Monocytes/100 WBC (Bld) 4.3 % Normal 2.0-10.0 [facility] Comment on above: Performed By: #### 5 7021-8 ####ANDI Cotter ([id number])[facility] ([facility])[address] [place] [address] Neutrophils (Bld) [#/Vol] 7.07 x10*3/uL Normal 1.20-7.70 [facility] Comment on above: Result Comment: Perc ent differential counts (%) should be interpreted in the context of the absolute cell counts (cells/uL). Performed By: #### 5 7021-8 ####ANDI Cotter ([id number])[facility] ([facility])[address] [place] [address] Neutrophils/100 WBC (Bld) 71.1 % Normal 40.0-80.0 [facility] Comment on above: Performed By: #### 5 7021-8 ####ANDI Cotter ([id number])[facility] ([facility])[address] [place] [address] Nucleated RBC/100 WBC (Bld) [Ratio] 0.0 /100 WBCs Normal 0.0-0.0 [facility] Comment on above: Performed By: #### 5 7021-8 ####ANDI Cotter ([id number])[facility] ([facility])[address] [place] [address] Platelets (Bld) [#/Vol] 242 x10*3/uL Normal 150-450 [facility] Comment on above: Performed By: #### 5 7021-8 ####ANDI Cotter ([id number])[facility] ([facility])[address] [place] [address] RBC (Bld) [#/Vol] 3.69 x10*6/uL Low 4.00-5.20 [facility] Comment on above: Performed By: #### 5 7021-8 ####ANDI Cotter ([id number])[facility] ([facility])[address] [place] [address] WBC (Bld) [#/Vol] 10.0 x10*3/uL Normal 4.4-11.3 [facility] Comment on above: Performed By: #### 5 7021-8 ####ANDI Cotter ([id number])[facility] ([facility])[address] [place] [address] Coagulation surface inducedo n 03-22-2024 aPTT Coag (PPP) [Time] 56 s High 27-38 [facility] Comment on above: Order Comment: Basel ine aPTT before initiating heparin infusion. Nursing to release order.The APTT is no longer used for monitoring Unfractionated Heparin Therapy. For monitoring Heparin Therapy, use the Heparin Assay. Performed By: #### 1 4979-9 ####ANDI Cotter ([id number])[facility] ([facility])[address] [place] [address] Comprehensive metabolic 2000 panelon 03-22-2024 Albumin BCP dye [Mass/Vol] 3.6 g/dL Normal 3.4-5.0 [facility] Comment on above: Performed By: #### 2 4323-8 ####ANDI Cotter ([id number])[facility] ([facility])[address] [place] [address] ALP [Catalytic activity/Vol] 226 U/L High 33-110 [facility] Comment on above: Performed By: #### 2 4323-8 ####ANDI Cotter ([id number])[facility] ([facility])[id number] [place] [address] ALT With P-5'-P [Catalytic activity/Vol] 92 U/L High 7-45 [facility] Comment on above: Result Comment: Evelyn ents treated with Sulfasalazine may generate falsely decreased results for ALT. Performed By: #### 2 4323-8 ####ANDI CHAUDHARY L ([id number])[facility] ([facility])[address] [place] [address] Anion gap [Moles/Vol] 16 mmol/L Normal 10-20 [facility] Comment on above: Performed By: #### 2 4323-8 ####ANDI CHAUDHRAY L ([id number])[facility] ([facility])[address] [place] [address] AST With P-5'-P [Catalytic activity/Vol] 53 U/L High 9-39 [facility] Comment on above: Result Comment: MILD HEMOLYSIS DETECTED. The result may be falsely elevated due to hemolysis or other interferents. Clinical correlation is recommended. Repeat testing may be considered. Performed By: #### 2 4323-8 ####ANDI CHAUDHARY L ([id number])[facility] ([facility])[address] [place] [address] Bilirubin [Mass/Vol] 0.4 mg/dL Normal 0.0-1.2 [facility] Comment on above: Performed By: #### 2 4323-8 ####ANDI RAJPUTMOTZER L ([id number])[facility] ([facility])[address] [place] [address] Calcium [Mass/Vol] 9.4 mg/dL Normal 8.6-10.6 [facility] Comment on above: Performed By: #### 2 4323-8 ####ANDI RAJPUTMOTZER L ([id number])[facility] ([facility])[address] [place] [address] Chloride [Moles/Vol] 99 mmol/L Normal 98-107 [facility] Comment on above: Performed By: #### 2 4323-8 ####ANDI RAJPUTMOTZER L ([id number])[facility] ([facility])[address] [place] [address] CO2 [Moles/Vol] 25 mmol/L Normal 21-32 [facility] Comment on above: Performed By: #### 2 4323-8 ####ANDI Cotter ([id number])[facility] ([facility])[address] [place] [address] Creatinine [Mass/Vol] 0.54 mg/dL Normal 0.50-1.05 [facility] Comment on above: Performed By: #### 2 4323-8 ####ANDI Cotter ([id number])[facility] ([facility])[address] [place] [address] GFR/1.73 sq M.predicted MDRD (S/P/Bld) [Vol rate/Area] mL/min/{1.73_m2} Normal >60 [facility] Comment on above: Result Comment: Calc ulations of estimated GFR are performed using the 2020 CKD-EPI Study Refit equation without the race variable for the IDMS-Traceable creatinine methods.https://jasn.asnjournals.org/content/// N.4476482460 Performed By: #### 2 4323-8 ####ANDI Cotter ([id number])[facility] ([facility])[address] [place] [address] Glucose [Mass/Vol] 167 mg/dL High 74-99 [facility] Comment on above: Performed By: #### 2 4323-8 ####ANDI Cotter ([id number])[facility] ([facility])[address] [place] [address] Potassium [Moles/Vol] 4.0 mmol/L Normal 3.5-5.3 [facility] Comment on above: Result Comment: MILD HEMOLYSIS DETECTED. The result may be falsely elevated due to hemolysis or other interferents. Clinical correlation is recommended. Repeat testing may be considered. Performed By: #### 2 4323-8 ####ANDI Cotter ([id number])[facility] ([facility])[address] [place] [address] Protein [Mass/Vol] 7.5 g/dL Normal 6.4-8.2 [facility] Comment on above: Performed By: #### 2 4323-8 ####ANDI Cotter ([id number])[facility] ([facility])[address] [place] [address] Sodium [Moles/Vol] 136 mmol/L Normal 136-145 [facility] Comment on above: Performed By: #### 2 4323-8 ####ANDI Cotter ([id number])[facility] ([facility])[address] [place] [address] Urea nitrogen [Mass/Vol] 8 mg/dL Normal 6-23 [facility] Comment on above: Performed By: #### 2 4323-8 ####ANDI Cotter ([id number])[facility] ([facility])[address] [place] [address] Glucose Test strip manual (B ld) [Mass/Vol]on 03-22-2024 Glucose [Mass/Vol] 136 mg/dL High [address] [place] [address] Comment on above: Performed By: #### 2 341-6 ####ANDI Cotter ([id number])[facility] ([facility])[address] [place] [address] Glucose [Mass/Vol] 166 mg/dL High 74-99 [facility] Comment on above: Performed By: #### 2 341-6 ####ANDI Cotter ([id number])[facility] ([facility])[address] [place] [address] Glucose [Mass/Vol] 161 mg/dL High -[address] [place] [address] Comment on above: Performed By: #### 2 341-6 ####ANDI Cotter ([id number])[facility] ([facility])[address] [place] [address] Glucose [Mass/Vol] 119 mg/dL High 74-99 [facility] Comment on above: Performed By: #### 2 341-6 ####ANDI Cotter ([id number])[facility] ([facility])[address] [place] [address] Heparin.unfractionatedon Heparin unfractionated Chromogenic method Qn (PPP) 0.4 IU/mL Normal See Comment Below for Therapeutic Ranges [facility] Comment on above: Order Comment: Obtai n 4 hours after any Heparin dosage change. Nursing to release order.The therapeutic reference range for UFH may be either 0.3-0.6 IU/mL or 0.3-0.7 IU/mL based on the clinical setting for anticoagulant therapy and the associated nomogram used. For Heparin dosing guidelines based on clinical scenario and Heparin Assay results, please refer to local Pharmacy and the [facility] Guidelines for Anticoagulation Therapy available on the [facility] intranet at: [email or web address] Performed By: #### 3 274-8 ####ANDI Cotter ([id number])[facility] ([facility])[address] [place] [address] Heparin unfractionated Chromogenic method Qn (PPP) 0.4 IU/mL Normal See Comment Below for Therapeutic Ranges [facility] Comment on above: Order Comment: Obtai n 4 hours after any Heparin dosage change. Nursing to release order.The therapeutic reference range for UFH may be either 0.3-0.6 IU/mL or 0.3-0.7 IU/mL based on the clinical setting for anticoagulant therapy and the associated nomogram used. For Heparin dosing guidelines based on clinical scenario and Heparin Assay results, please refer to local Pharmacy and the [facility] Guidelines for Anticoagulation Therapy available on the [facility] intranet at: [email or web address] Performed By: #### 3 274-8 ####ANDI Cotter ([id number])[facility] ([facility])[address] [place], [place] [address] Magnesiumon 03-22-2024 Magnesium [Mass/Vol] 1.95 mg/dL Normal 1.60-2.40 [facility] Comment on above: Performed By: #### 1 9123-9 ####ANDI Cotter ([id number])[facility] ([facility])[address] [place] [address] PT and aPTT panel Coag (PPP) on 03-22-2024 aPTT Coag (PPP) [Time] 62 s High 27-38 [facility] Comment on above: Order Comment: The A PTT is no longer used for monitoring Unfractionated Heparin Therapy. For monitoring Heparin Therapy, use the Heparin Assay. Performed By: #### 3 4529-8 ####ANDI Cotter ([id number])[facility] ([facility])[address] [place] [address] INR Coag (PPP) [Relative time] 1.2 High 0.9-1.1 [facility] Comment on above: Order Comment: The A PTT is no longer used for monitoring Unfractionated Heparin Therapy. For monitoring Heparin Therapy, use the Heparin Assay. Performed By: #### 3 4529-8 ####ANDI Cotter ([id number])[facility] ([facility])[address] [place] [address] PT Coag (PPP) [Time] 13.1 s High 9.8-12.8 [facility] Comment on above: Order Comment: The A PTT is no longer used for monitoring Unfractionated Heparin Therapy. For monitoring Heparin Therapy, use the Heparin Assay. Performed By: #### 3 4529-8 ####ANDI Cotter ([id number])[facility] ([facility])[address] [place] [address] Phosphateon 03-22-2024 Phosphate [Mass/Vol] 4.2 mg/dL Normal 2.5-4.9 [facility] Comment on above: Result Comment: MILD HEMOLYSIS DETECTED. The result may be falsely elevated due to hemolysis or other interferents. Clinical correlation is recommended. Repeat testing may be considered.The performance characteristics of phosphorus testing in heparinized plasma have been validated by the individual laboratory site where testing is performed. Testing on heparinized plasma is not approved by the FDA; however, such approval is not necessary. Performed By: #### 2 777-1 ####ANDI Cotter ([id number])[facility] ([facility])[address] [place] [address] Blood type and Indirect anti body screen panel (Bld)on 03-21-2024 ABO group Nom (Bld) A Normal [facility] Comment on above: Order Comment: Revie w your Rh Negative female patient's potential need for Rh Immune Globulin (RhIg)administration. Performed By: #### 3 4532-2 ####ANDI Cotter ([id number])[facility] ([facility])[address] [place] [address] Blood group antibody screen Ql Negative Normal [facility] Comment on above: Order Comment: Revie w your Rh Negative female patient's potential need for Rh Immune Globulin (RhIg)administration. Performed By: #### 3 4532-2 ####ANDI Cotter ([id number])[facility] ([facility])[address] [place] [address] D Ag Ql (Bld) Negative Normal [facility] Comment on above: Order Comment: Revie w your Rh Negative female patient's potential need for Rh Immune Globulin (RhIg)administration. Performed By: #### 3 4532-2 ####ANDI Cotter ([id number])[facility] ([facility])[address] [place] [address] CBC W Auto Differential pane l (Bld)on 03-21-2024 Basophils (Bld) [#/Vol] 0.03 x10*3/uL Normal 0.00-0.10 [facility] Comment on above: Performed By: #### 5 7021-8 ####ANDI Cotter ([id number])[facility] ([facility])[address] [place] [address] Basophils/100 WBC (Bld) 0.4 % Normal 0.0-2.0 [facility] Comment on above: Performed By: #### 5 7021-8 ####ANDI Cotter ([id number])[facility] ([facility])[address] [place] [address] Eosinophils (Bld) [#/Vol] 0.17 x10*3/uL Normal 0.00-0.70 [facility] Comment on above: Performed By: #### 5 7021-8 ####ANDI Cotter ([id number])[facility] ([facility])[address] [place] [address] Eosinophils/100 WBC (Bld) 2.4 % Normal 0.0-6.0 [facility] Comment on above: Performed By: #### 5 7021-8 ####ANDI Cotter ([id number])[facility] ([facility])[address] [place] [address] Erythrocyte distribution width (RBC) [Ratio] 14.3 % Normal 11.5-14.5 [facility] Comment on above: Performed By: #### 5 7021-8 ####ANDI Cotter ([id number])[facility] ([facility])[address] [place] [address] Hematocrit (Bld) [Volume fraction] 32.1 % Low 36.0-46.0 [facility] Comment on above: Performed By: #### 5 7021-8 ####ANDI Cotter ([id number])[facility] ([facility])[address] [place] [address] Hemoglobin (Bld) [Mass/Vol] 9.8 g/dL Low 12.0-16.0 [facility] Comment on above: Performed By: #### 5 7021-8 ####ANDI Cotter ([id number])[facility] ([facility])[address] [place] [address] Immature granulocytes (Bld) [#/Vol] 0.07 x10*3/uL Normal 0.00-0.70 [facility] Comment on above: Performed By: #### 5 7021-8 ####ANDI Cotter ([id number])[facility] ([facility])[address] [place] [address] Immature granulocytes/100 WBC (Bld) 1.0 % High 0.0-0.9 [facility] Comment on above: Result Comment: Debbie ture Granulocyte Count (IG) includes promyelocytes, myelocytes and metamyelocytes but does not include bands. Percent differential counts (%) should be interpreted in the context of the absolute cell counts (cells/UL). Performed By: #### 5 7021-8 ####ANDI Cotter ([id number])[facility] ([facility])[address] [place] [address] Lymphocytes (Bld) [#/Vol] 1.43 x10*3/uL Normal 1.20-4.80 [facility] Comment on above: Performed By: #### 5 7021-8 ####ANDI Cotter ([id number])[facility] ([facility])[address]651 [place] [address] Lymphocytes/100 WBC (Bld) 19.8 % Normal 13.0-44.0 [facility] Comment on above: Performed By: #### 5 7021-8 ####ANDI CHAUDHARY L ([id number])[facility] ([facility])[address] [place] [address] MCH (RBC) [Entitic mass] 26.4 pg Normal 26.0-34.0 [facility] Comment on above: Performed By: #### 5 7021-8 ####ANDI RAJPUTMOFIDELINA L ([id number])[facility] ([facility])[address] [place] [address] MCHC (RBC) [Mass/Vol] 30.5 g/dL Low 32.0-36.0 [facility] Comment on above: Performed By: #### 5 7021-8 ####ANDI RAJPUTMOFIDELINA L ([id number])[facility] ([facility])[address] [place] [address] MCV (RBC) [Entitic vol] 87 fL Normal 80-100 [facility] Comment on above: Performed By: #### 5 7021-8 ####ANDI RAJPUTMOTZER L ([id number])[facility] ([facility])[address] [place] [address] Monocytes (Bld) [#/Vol] 0.52 x10*3/uL Normal 0.10-1.00 [facility] Comment on above: Performed By: #### 5 7021-8 ####ANDI SCHMOTZER L ([id number])[facility] ([facility])[address] [place] [address] Monocytes/100 WBC (Bld) 7.2 % Normal 2.0-10.0 [facility] Comment on above: Performed By: #### 5 7021-8 ####ANDI RAJPUTMOTZER L ([id number])[facility] ([facility])[address] [place] [address] Neutrophils (Bld) [#/Vol] 5.00 x10*3/uL Normal 1.20-7.70 [facility] Comment on above: Result Comment: Perc ent differential counts (%) should be interpreted in the context of the absolute cell counts (cells/uL). Performed By: #### 5 7021-8 ####ANDI RAJPUTMOTZDAVID L ([id number])[facility] ([facility])[address]232 [place] [address] Neutrophils/100 WBC (Bld) 69.2 % Normal 40.0-80.0 [facility] Comment on above: Performed By: #### 5 7021-8 ####ANDI RAJPUTMOTZER L ([id number])[facility] ([facility])[address]160 [place] [address] Nucleated RBC/100 WBC (Bld) [Ratio] 0.0 /100 WBCs Normal 0.0-0.0 [facility] Comment on above: Performed By: #### 5 7021-8 ####ANDI RAJPUTMOTZER L ([id number])[facility] ([facility])[address]430 [place] [address] Platelets (Bld) [#/Vol] 294 x10*3/uL Normal 150-450 [facility] Comment on above: Performed By: #### 5 7021-8 ####ANDI CHAUDHARY L ([id number])[facility] ([facility])[address]67 [place] [address] RBC (Bld) [#/Vol] 3.71 x10*6/uL Low 4.00-5.20 [facility] Comment on above: Performed By: #### 5 7021-8 ####ANDI CHAUDHARY L ([id number])[facility] ([facility])[address] [place] [address] WBC (Bld) [#/Vol] 7.2 x10*3/uL Normal 4.4-11.3 [facility] Comment on above: Performed By: #### 5 7021-8 ####ANDI CHAUDHARY L ([id number])[facility] ([facility])[address] [place] [address] Basophils (Bld) [#/Vol] 0.03 x10*3/uL Normal 0.00-0.10 [facility] Comment on above: Performed By: #### 5 7021-8 ####ANDI CHAUDHARY L ([id number])[facility] ([facility])[address] [place] [address] Basophils/100 WBC (Bld) 0.4 % Normal 0.0-2.0 [facility] Comment on above: Performed By: #### 5 7021-8 ####ANDI RAJPUTMOFIDELINA L ([id number])[facility] ([facility])[address] [place] [address] Eosinophils (Bld) [#/Vol] 0.26 x10*3/uL Normal 0.00-0.70 [facility] Comment on above: Performed By: #### 5 7021-8 ####ANDI RAJPUTMOFIDELINA L ([id number])[facility] ([facility])[address] [place] [address] Eosinophils/100 WBC (Bld) 3.4 % Normal 0.0-6.0 [facility] Comment on above: Performed By: #### 5 7021-8 ####ANDI Cotter ([id number])[facility] ([facility])[address] [place] [address] Erythrocyte distribution width (RBC) [Ratio] 14.1 % Normal 11.5-14.5 [facility] Comment on above: Performed By: #### 5 7021-8 ####ANDI Cotter ([id number])[facility] ([facility])[address] [place] [address] Hematocrit (Bld) [Volume fraction] 22.2 % Low 36.0-46.0 [facility] Comment on above: Performed By: #### 5 7021-8 ####ANDI Cotter ([id number])[facility] ([facility])[id number] [place] [address] Hemoglobin (Bld) [Mass/Vol] 6.8 g/dL Low 12.0-16.0 [facility] Comment on above: Performed By: #### 5 7021-8 ####ANDI Cotter ([id number])[facility] ([facility])[address] [place] [address] Immature granulocytes (Bld) [#/Vol] 0.06 x10*3/uL Normal 0.00-0.70 [facility] Comment on above: Performed By: #### 5 7021-8 ####ANDI Cotter ([id number])[facility] ([facility])[address] [place] [address] Immature granulocytes/100 WBC (Bld) 0.8 % Normal 0.0-0.9 [facility] Comment on above: Result Comment: Debbie ture Granulocyte Count (IG) includes promyelocytes, myelocytes and metamyelocytes but does not include bands. Percent differential counts (%) should be interpreted in the context of the absolute cell counts (cells/UL). Performed By: #### 5 7021-8 ####ANDI Cotter ([id number])[facility] ([facility])[address] [place] [address] Lymphocytes (Bld) [#/Vol] 1.81 x10*3/uL Normal 1.20-4.80 [facility] Comment on above: Performed By: #### 5 7021-8 ####ANDI Cotter ([id number])[facility] ([facility])[id number] [place] [address] Lymphocytes/100 WBC (Bld) 23.5 % Normal 13.0-44.0 [facility] Comment on above: Performed By: #### 5 7021-8 ####ANDI Cotter ([id number])[facility] ([facility])[address] [place] [address] MCH (RBC) [Entitic mass] 26.6 pg Normal 26.0-34.0 [facility] Comment on above: Performed By: #### 5 7021-8 ####ANDI Cotter ([id number])[facility] ([facility])[address] [place] [address] MCHC (RBC) [Mass/Vol] 30.6 g/dL Low 32.0-36.0 [facility] Comment on above: Performed By: #### 5 7021-8 ####ANDI Cotter ([id number])[facility] ([facility])[address] [place] [address]67 MCV (RBC) [Entitic vol] 87 fL Normal 80-100 [facility] Comment on above: Performed By: #### 5 7021-8 ####ANDI Cotter ([id number])[facility] ([facility])[address] [place] [address] Monocytes (Bld) [#/Vol] 0.59 x10*3/uL Normal 0.10-1.00 [facility] Comment on above: Performed By: #### 5 7021-8 ####ANDI Cotter ([id number])[facility] ([facility])[address] [place] [address] [place] [address] Monocytes/100 WBC (Bld) 7.7 % Normal 2.0-10.0 [facility] Comment on above: Performed By: #### 5 7021-8 ####ANDI Cotter ([id number])[facility] ([facility])[address] [place] [address] Neutrophils (Bld) [#/Vol] 4.96 x10*3/uL Normal 1.20-7.70 [facility] Comment on above: Result Comment: Perc ent differential counts (%) should be interpreted in the context of the absolute cell counts (cells/uL). Performed By: #### 5 7021-8 ####ANDI Cotter ([id number])[facility] ([facility])[address] [place] [address] Neutrophils/100 WBC (Bld) 64.2 % Normal 40.0-80.0 [facility] Comment on above: Performed By: #### 5 7021-8 ####ANDI Cotter ([id number])[facility] ([facility])[address] [place] [address] Nucleated RBC/100 WBC (Bld) [Ratio] 0.0 /100 WBCs Normal 0.0-0.0 [facility] Comment on above: Performed By: #### 5 7021-8 ####ANDI Cotter ([id number])[facility] ([facility])[address] [place] [address] Platelets (Bld) [#/Vol] 371 x10*3/uL Normal 150-450 [facility] Comment on above: Performed By: #### 5 7021-8 ####ANDI Cotter ([id number])[facility] ([facility])[address] [place] [address] RBC (Bld) [#/Vol] 2.56 x10*6/uL Low 4.00-5.20 [facility] Comment on above: Performed By: #### 5 7021-8 ####ANDI Cotter ([id number])[facility] ([facility])[address]50 [place] [address] WBC (Bld) [#/Vol] 7.7 x10*3/uL Normal 4.4-11.3 [facility] Comment on above: Performed By: #### 5 7021-8 ####ANDI Cotter ([id number])[facility] ([facility])[address] [place] [address] Comprehensive metabolic 2000 panelon 03-21-2024 Albumin BCP dye [Mass/Vol] 3.5 g/dL Normal 3.4-5.0 [facility] Comment on above: Performed By: #### 2 4323-8 ####ANDI Cotter ([id number])[facility] ([facility])[address]67 [place] [address] ALP [Catalytic activity/Vol] 232 U/L High 33-110 [facility] Comment on above: Performed By: #### 2 4323-8 ####ANDI Cotter ([id number])[facility] ([facility])[address] [place] [address] ALT With P-5'-P [Catalytic activity/Vol] 100 U/L High 7-45 [facility] Comment on above: Result Comment: Evelyn ents treated with Sulfasalazine may generate falsely decreased results for ALT. Performed By: #### 2 4323-8 ####ANDI Cotter ([id number])[facility] ([facility])[address] [place] [address] Anion gap [Moles/Vol] 15 mmol/L Normal 10-20 [facility] Comment on above: Performed By: #### 2 4323-8 ####ANDI Cotter ([id number])[facility] ([facility])[address] [place] [address] AST With P-5'-P [Catalytic activity/Vol] 129 U/L High 9-39 [facility] Comment on above: Performed By: #### 2 4323-8 ####ANDI Cotter ([id number])[facility] ([facility])[address] [place] [address] Bilirubin [Mass/Vol] 0.6 mg/dL Normal 0.0-1.2 [facility] Comment on above: Performed By: #### 2 4323-8 ####ANDI RENEEER L ([id number])[facility] ([facility])[address] [place] [address] Calcium [Mass/Vol] 9.1 mg/dL Normal 8.6-10.6 [facility] Comment on above: Performed By: #### 2 4323-8 ####ANDI MADRIDTZER L ([id number])[facility] ([facility])[address] [place] [address] Chloride [Moles/Vol] 99 mmol/L Normal 98-107 [facility] Comment on above: Performed By: #### 2 4323-8 ####ANDI RAJPUTMOTZER L ([id number])[facility] ([facility])[address]143 [place] [address] CO2 [Moles/Vol] 26 mmol/L Normal 21-32 [facility] Comment on above: Performed By: #### 2 4323-8 ####ANDI MADRIDTZER L ([id number])[facility] ([facility])[address]473 [place] [address] Creatinine [Mass/Vol] 0.71 mg/dL Normal 0.50-1.05 [facility] Comment on above: Performed By: #### 2 4323-8 ####ANDI MADRIDTZER L (91454)[facility] ([facility])[address] [place] [address] GFR/1.73 sq M.predicted MDRD (S/P/Bld) [Vol rate/Area] mL/min/{1.73_m2} Normal >60 [facility] Comment on above: Result Comment: Calc ulations of estimated GFR are performed using the 2020 CKD-EPI Study Refit equation without the race variable for the IDMS-Traceable creatinine methods.https://jasn.asnjournals.org/content/early/ N.3938384507 Performed By: #### 2 4323-8 ####ANDI Cotter ([id number])[facility] ([facility])[address] [place] [address] Glucose [Mass/Vol] 131 mg/dL High 74-99 [facility] Comment on above: Performed By: #### 2 4323-8 ####ANDI Cotter ([id number])[facility] ([facility])[address] [place] [address] Potassium [Moles/Vol] 3.7 mmol/L Normal 3.5-5.3 [facility] Comment on above: Performed By: #### 2 4323-8 ####ANDI Cotter ([id number])[facility] ([facility])[address]86 [place] [address] Protein [Mass/Vol] 7.1 g/dL Normal 6.4-8.2 [facility] Comment on above: Performed By: #### 2 4323-8 ####ANDI Cotter ([id number])[facility] ([facility])[address]69 [place] [address] Sodium [Moles/Vol] 136 mmol/L Normal 136-145 [facility] Comment on above: Performed By: #### 2 4323-8 ####ANDI Cotter ([id number])[facility] ([facility])[address]49 [place] [address] Urea nitrogen [Mass/Vol] 7 mg/dL Normal 6-23 [facility] Comment on above: Performed By: #### 2 4323-8 ####ANDI Cotter ([id number])[facility] ([facility])[address] [place] [address] ERCPon 03-21-2024 ERCP Normal [facility] Glucose Test strip manual (B ld) [Mass/Vol]on 03-21-2024 Glucose [Mass/Vol] 249 mg/dL High [address] [place] [address] Comment on above: Performed By: #### 2 341-6 ####ANDI Cotter ([id number])[facility] ([facility])[address]170 [place] [address] Glucose [Mass/Vol] 220 mg/dL High [address] [place] [address] Comment on above: Performed By: #### 2 341-6 ####ANDI Cotter ([id number])[facility] ([facility])[address]64 [place] [address] Glucose [Mass/Vol] 239 mg/dL High [address] [place] [address] Comment on above: Performed By: #### 2 341-6 ####ANDI Cotter ([id number])[facility] ([facility])[address] [place] [address] Glucose [Mass/Vol] 135 mg/dL High [address] [place] [address] Comment on above: Performed By: #### 2 341-6 ####ANDI Cotter ([id number])[facility] ([facility])[address]156 [place] [address] Glucose [Mass/Vol] 156 mg/dL High [address] [place] [address] Comment on above: Performed By: #### 2 341-6 ####ANDI Cotter ([id number])[facility] ([facility])[address]44 [place] [address] Glucose [Mass/Vol] 129 mg/dL High [address] [place] [address] Comment on above: Performed By: #### 2 341-6 ####ANDI Cotter (03914)[facility] ([facility])[address]172 [place] [address] Heparin.unfractionatedon Heparin unfractionated Chromogenic method Qn (PPP) 0.2 IU/mL Normal See Comment Below for Therapeutic Ranges [facility] Comment on above: Order Comment: If bl eeding from any site at anytime. Nursing to release order.The therapeutic reference range for UFH may be either 0.3-0.6 IU/mL or 0.3-0.7 IU/mL based on the clinical setting for anticoagulant therapy and the associated nomogram used. For Heparin dosing guidelines based on clinical scenario and Heparin Assay results, please refer to local Pharmacy and [facility] Guidelines for Anticoagulation Therapy available on the [facility] intranet at: [email or web address] Performed By: #### 3 274-8 ####ANDI Cotter ([id number])[facility] ([facility])[address] [place] [address] Heparin unfractionated Chromogenic method Qn (PPP) 0.2 IU/mL Normal See Comment Below for Therapeutic Ranges [facility] Comment on above: Order Comment: Obtai n 4 hours after any Heparin dosage change. Nursing to release order.The therapeutic reference range for UFH may be either 0.3-0.6 IU/mL or 0.3-0.7 IU/mL based on the clinical setting for anticoagulant therapy and the associated nomogram used. For Heparin dosing guidelines based on clinical scenario and Heparin Assay results, please refer to local Pharmacy and [facility] Guidelines for Anticoagulation Therapy available on the [facility] intranet at: [email or web address]_[email or web address] Performed By: #### 3 274-8 ####ANDI Cotter ([id number])[facility] ([facility])[address] [place] [address] Magnesiumon 03-21-2024 Magnesium [Mass/Vol] 1.86 mg/dL Normal 1.60-2.40 [facility] Comment on above: Performed By: #### 1 9123-9 ####ANDI Cotter ([id number])[facility] ([facility])[address] [place] [address] PT and aPTT panel Coag (PPP) on 03-21-2024 aPTT Coag (PPP) [Time] 77 s High 27-38 [facility] Comment on above: Order Comment: The A PTT is no longer used for monitoring Unfractionated Heparin Therapy. For monitoring Heparin Therapy, use the Heparin Assay. Performed By: #### 3 4529-8 ####ANDI Cotter ([id number])[facility] ([facility])[address] [place] [address]995 INR Coag (PPP) [Relative time] 1.1 Normal 0.9-1.1 [facility] Comment on above: Order Comment: The A PTT is no longer used for monitoring Unfractionated Heparin Therapy. For monitoring Heparin Therapy, use the Heparin Assay. Performed By: #### 3 4529-8 ####ANDI Cotter ([id number])[facility] ([facility])[address] [place] [address] 11553 PT Coag (PPP) [Time] 12.8 s Normal 9.8-12.8 [facility] Comment on above: Order Comment: The A PTT is no longer used for monitoring Unfractionated Heparin Therapy. For monitoring Heparin Therapy, use the Heparin Assay. Performed By: #### 3 4529-8 ####ANDI Cotter ([id number])[facility] ([facility])[address] [place] [address] Phosphateon 03-21-2024 Phosphate [Mass/Vol] 5.0 mg/dL High 2.5-4.9 [facility] Comment on above: Result Comment: The performance characteristics of phosphorus testing in heparinized plasma have been validated by the individual laboratory site where testing is performed. Testing on heparinized plasma is not approved by the FDA; however, such approval is not necessary. Performed By: #### 2 777-1 ####ANDI Cotter ([id number])[facility] ([facility])[address] [place] [address] 12342 CBC W Auto Differential pane l (Bld)on 03-20-2024 Basophils (Bld) [#/Vol] 0.02 x10*3/uL Normal 0.00-0.10 [facility] Comment on above: Performed By: #### 5 7021-8 ####ANDI Cotter ([id number])[facility] ([facility])[address]16 [place] [address] Basophils/100 WBC (Bld) 0.3 % Normal 0.0-2.0 [facility] Comment on above: Performed By: #### 5 7021-8 ####ANDI Cotter ([id number])[facility] ([facility])[address] [place] [address] Eosinophils (Bld) [#/Vol] 0.20 x10*3/uL Normal 0.00-0.70 [facility] Comment on above: Performed By: #### 5 7021-8 ####ANDI Cotter ([id number])[facility] ([facility])[address] [place] [address] Eosinophils/100 WBC (Bld) 2.7 % Normal 0.0-6.0 [facility] Comment on above: Performed By: #### 5 7021-8 ####ANDI Cotter ([id number])[facility] ([facility])[address] [place] [address] Erythrocyte distribution width (RBC) [Ratio] 14.3 % Normal 11.5-14.5 [facility] Comment on above: Performed By: #### 5 7021-8 ####ANDI Cotter ([id number])[facility] ([facility])[address] [place] [address] Hematocrit (Bld) [Volume fraction] 30.6 % Low 36.0-46.0 [facility] Comment on above: Performed By: #### 5 7021-8 ####ANDI Cotter ([id number])[facility] ([facility])[address] [place] [address] Hemoglobin (Bld) [Mass/Vol] 9.3 g/dL Low 12.0-16.0 [facility] Comment on above: Performed By: #### 5 7021-8 ####ANDI Cotter ([id number])[facility] ([facility])[address] [place] [address] Immature granulocytes (Bld) [#/Vol] 0.07 x10*3/uL Normal 0.00-0.70 [facility] Comment on above: Performed By: #### 5 7021-8 ####ANDI Cotter ([id number])[facility] ([facility])[address]345 [place] [address] Immature granulocytes/100 WBC (Bld) 0.9 % Normal 0.0-0.9 [facility] Comment on above: Result Comment: Debbie ture Granulocyte Count (IG) includes promyelocytes, myelocytes and metamyelocytes but does not include bands. Percent differential counts (%) should be interpreted in the context of the absolute cell counts (cells/UL). Performed By: #### 5 7021-8 ####ANDI Cotter ([id number])[facility] ([facility])[address]15 [place] [address] Lymphocytes (Bld) [#/Vol] 2.11 x10*3/uL Normal 1.20-4.80 [facility] Comment on above: Performed By: #### 5 7021-8 ####ANDI Cotter ([id number])[facility] ([facility])[address]66 [place] [address] Lymphocytes/100 WBC (Bld) 28.0 % Normal 13.0-44.0 [facility] Comment on above: Performed By: #### 5 7021-8 ####ANDI Cotter ([id number])[facility] ([facility])[address] [place] [address] MCH (RBC) [Entitic mass] 26.6 pg Normal 26.0-34.0 [facility] Comment on above: Performed By: #### 5 7021-8 ####ANDI Cotter ([id number])[facility] ([facility])[address] [place] [address] MCHC (RBC) [Mass/Vol] 30.4 g/dL Low 32.0-36.0 [facility] Comment on above: Performed By: #### 5 7021-8 ####ANDI Cotter ([id number])[facility] ([facility])[address]13 [place] [address] MCV (RBC) [Entitic vol] 88 fL Normal 80-100 [facility] Comment on above: Performed By: #### 5 7021-8 ####ANDI Cotter ([id number])[facility] ([facility])[address]14 [place] [address] Monocytes (Bld) [#/Vol] 0.52 x10*3/uL Normal 0.10-1.00 [facility] Comment on above: Performed By: #### 5 7021-8 ####ANDI Cotter ([id number])[facility] ([facility])[address]165 [place] [address] Monocytes/100 WBC (Bld) 6.9 % Normal 2.0-10.0 [facility] Comment on above: Performed By: #### 5 7021-8 ####ANDI Cotter ([id number])[facility] ([facility])[address]017 [place] [address] Neutrophils (Bld) [#/Vol] 4.62 x10*3/uL Normal 1.20-7.70 [facility] Comment on above: Result Comment: Perc ent differential counts (%) should be interpreted in the context of the absolute cell counts (cells/uL). Performed By: #### 5 7021-8 ####ANDI Cotter ([id number])[facility] ([facility])[address]80 [place] [address] Neutrophils/100 WBC (Bld) 61.2 % Normal 40.0-80.0 [facility] Comment on above: Performed By: #### 5 7021-8 ####ANDI Cotter ([id number])[facility] ([facility])[address]43 [place] [address] Nucleated RBC/100 WBC (Bld) [Ratio] 0.0 /100 WBCs Normal 0.0-0.0 [facility] Comment on above: Performed By: #### 5 7021-8 ####ANDI Cotter (48219)[facility] ([facility])[address]33 [place] [address] Platelets (Bld) [#/Vol] 326 x10*3/uL Normal 150-450 [facility] Comment on above: Performed By: #### 5 7021-8 ####ANDI Cotter ([id number])[facility] ([facility])[address] [place] [address] RBC (Bld) [#/Vol] 3.49 x10*6/uL Low 4.00-5.20 [facility] Comment on above: Performed By: #### 5 7021-8 ####ANDI Cotter ([id number])[facility] ([facility])[address] [place] [address] WBC (Bld) [#/Vol] 7.5 x10*3/uL Normal 4.4-11.3 [facility] Comment on above: Performed By: #### 5 7021-8 ####ANDI Cotter ([id number])[facility] ([facility])[address] [place] [address] Comprehensive metabolic 2000 panelon 03-20-2024 Albumin BCP dye [Mass/Vol] 3.5 g/dL Normal 3.4-5.0 [facility] Comment on above: Performed By: #### 2 4323-8 ####ANDI Cotetr ([id number])[facility] ([facility])[address] [place] [address] ALP [Catalytic activity/Vol] 144 U/L High 33-110 [facility] Comment on above: Performed By: #### 2 4323-8 ####ANDI Cotter ([id number])[facility] ([facility])[address]186 [place] [address] ALT With P-5'-P [Catalytic activity/Vol] 48 U/L High 7-45 [facility] Comment on above: Result Comment: Evelyn ents treated with Sulfasalazine may generate falsely decreased results for ALT. Performed By: #### 2 4323-8 ####ANDI Cotter ([id number])[facility] ([facility])[address] [place] [address] Anion gap [Moles/Vol] 17 mmol/L Normal 10-20 [facility] Comment on above: Performed By: #### 2 4323-8 ####ANDI Cotter ([id number])[facility] ([facility])[address] [place] [address] AST With P-5'-P [Catalytic activity/Vol] 58 U/L High 9-39 [facility] Comment on above: Performed By: #### 2 4323-8 ####ANDI Cotter ([id number])[facility] ([facility])[address] [place] [address] Bilirubin [Mass/Vol] 0.5 mg/dL Normal 0.0-1.2 [facility] Comment on above: Performed By: #### 2 4323-8 ####ANDI Cotter ([id number])[facility] ([facility])[address]244 [place] [address] Calcium [Mass/Vol] 8.7 mg/dL Normal 8.6-10.6 [facility] Comment on above: Performed By: #### 2 4323-8 ####ANDI Cotter ([id number])[facility] ([facility])[address]153 [place] [address] Chloride [Moles/Vol] 102 mmol/L Normal 98-107 [facility] Comment on above: Performed By: #### 2 4323-8 ####ANDI Cotter ([id number])[facility] ([facility])[address] [place] [address] CO2 [Moles/Vol] 20 mmol/L Low 21-32 [facility] Comment on above: Performed By: #### 2 4323-8 ####ANDI Cotter ([id number])[facility] ([facility])[address] [place] [address] Creatinine [Mass/Vol] 0.52 mg/dL Normal 0.50-1.05 [facility] Comment on above: Performed By: #### 2 4323-8 ####ANDI Cotter ([id number])[facility] ([facility])[address]43 [place] [address] GFR/1.73 sq M.predicted MDRD (S/P/Bld) [Vol rate/Area] mL/min/{1.73_m2} Normal >60 [facility] Comment on above: Result Comment: Calc ulations of estimated GFR are performed using the 2020 CKD-EPI Study Refit equation without the race variable for the IDMS-Traceable creatinine methods.https://jasn.asnjournals.org/content/early/ N.4791669640 Performed By: #### 2 4323-8 ####ANDI Cotter ([id number])[facility] ([facility])[address] [place] [address] Glucose [Mass/Vol] 114 mg/dL High 74-99 [facility] Comment on above: Performed By: #### 2 4323-8 ####ANDI CHAUDHARY L ([id number])[facility] ([facility])[address] [place] [address] Potassium [Moles/Vol] 3.8 mmol/L Normal 3.5-5.3 [facility] Comment on above: Performed By: #### 2 4323-8 ####ANDI CHAUDHARY L ([id number])[facility] ([facility])[address] [place] [address] Protein [Mass/Vol] 7.1 g/dL Normal 6.4-8.2 [facility] Comment on above: Performed By: #### 2 4323-8 ####ANDI CHAUDHARY L ([id number])[facility] ([facility])[address] [place] [address] Sodium [Moles/Vol] 135 mmol/L Low 136-145 [facility] Comment on above: Performed By: #### 2 4323-8 ####ANDI Cotter ([id number])[facility] ([facility])[address] [place] [address] Urea nitrogen [Mass/Vol] 8 mg/dL Normal 6-23 [facility] Comment on above: Performed By: #### 2 4323-8 ####ANDI Cotter ([id number])[facility] ([facility])[address] [place] [address] Glucose Test strip manual (B ld) [Mass/Vol]on 03-20-2024 Glucose [Mass/Vol] 125 mg/dL High 74-99 [facility] Comment on above: Performed By: #### 2 341-6 ####ANDI Cotter ([id number])[facility] ([facility])[address] [place] [address] Glucose [Mass/Vol] 148 mg/dL High 74-99 [facility] Comment on above: Performed By: #### 2 341-6 ####ANDI Cotter ([id number])[facility] ([facility])[address] [place] [address] Glucose [Mass/Vol] 162 mg/dL High 74-99 [facility] Comment on above: Performed By: #### 2 341-6 ####ANDI Cotter ([id number])[facility] ([facility])[address] [place] [address] Glucose [Mass/Vol] 93 mg/dL Normal 74-99 [facility] Comment on above: Performed By: #### 2 341-6 ####ANDI Cotter ([id number])[facility] ([facility])[id number] [place] [address] Heparin.unfractionatedon Heparin unfractionated Chromogenic method Qn (PPP) 0.6 IU/mL Normal See Comment Below for Therapeutic Ranges [facility] Comment on above: Order Comment: Obtai n 4 hours after any Heparin dosage change. Nursing to release order.The therapeutic reference range for UFH may be either 0.3-0.6 IU/mL or 0.3-0.7 IU/mL based on the clinical setting for anticoagulant therapy and the associated nomogram used. For Heparin dosing guidelines based on clinical scenario and Heparin Assay results, please refer to local Pharmacy and the [facility] Guidelines for Anticoagulation Therapy available on the [facility] intranet at: [email or web address] Performed By: #### 3 274-8 ####ANDI Cotter ([id number])[facility] ([facility])[id number] [place] [address] Magnesiumon 03-20-2024 Magnesium [Mass/Vol] 1.92 mg/dL Normal 1.60-2.40 [facility] Comment on above: Performed By: #### 1 9123-9 ####ANDI Cotter ([id number])[facility] ([facility])[id number] [place] [address] PT and aPTT panel Coag (PPP) on 03-20-2024 aPTT Coag (PPP) [Time] 127 s Critically high 27-38 [facility] Comment on above: Order Comment: The A PTT is no longer used for monitoring Unfractionated Heparin Therapy. For monitoring Heparin Therapy, use the Heparin Assay. Performed By: #### 3 4529-8 ####ANDI Cotter ([id number])[facility] ([facility])[address] [place] [address] INR Coag (PPP) [Relative time] 1.4 High 0.9-1.1 [facility] Comment on above: Order Comment: The A PTT is no longer used for monitoring Unfractionated Heparin Therapy. For monitoring Heparin Therapy, use the Heparin Assay. Performed By: #### 3 4529-8 ####ANDI Cotter ([id number])[facility] ([facility])[id number] [place] [address] PT Coag (PPP) [Time] 15.6 s High 9.8-12.8 [facility] Comment on above: Order Comment: The A PTT is no longer used for monitoring Unfractionated Heparin Therapy. For monitoring Heparin Therapy, use the Heparin Assay. Performed By: #### 3 4529-8 ####ANDI Cotter ([id number])[facility] ([facility])[address] [place] [address] 248[address] Phosphateon 03-20-2024 Phosphate [Mass/Vol] 4.5 mg/dL Normal 2.5-4.9 [facility] Comment on above: Result Comment: The performance characteristics of phosphorus testing in heparinized plasma have been validated by the individual laboratory site where testing is performed. Testing on heparinized plasma is not approved by the FDA; however, such approval is not necessary. Performed By: #### 2 777-1 ####ANDI Cotter ([id number])[facility] ([facility])[id number] [place] [address] 35884 CBC W Auto Differential pane l (Bld)on 03-19-2024 Basophils (Bld) [#/Vol] 0.03 x10*3/uL Normal 0.00-0.10 [facility] Comment on above: Performed By: #### 5 7021-8 ####ANDI Ctoter ([id number])[facility] ([facility])[id number] [place] [address] 26[address] Basophils/100 WBC (Bld) 0.3 % Normal 0.0-2.0 [facility] Comment on above: Performed By: #### 5 7021-8 ####ANDI Cotter ([id number])[facility] ([facility])[address] [place] [address] Eosinophils (Bld) [#/Vol] 0.17 x10*3/uL Normal 0.00-0.70 [facility] Comment on above: Performed By: #### 5 7021-8 ####ANDI Cotter ([id number])[facility] ([facility])[address] [place] [address] Eosinophils/100 WBC (Bld) 1.7 % Normal 0.0-6.0 [facility] Comment on above: Performed By: #### 5 7021-8 ####ANDI Cotter ([id number])[facility] ([facility])[address] [place] [address] Immature granulocytes (Bld) [#/Vol] 0.04 x10*3/uL Normal 0.00-0.70 [facility] Comment on above: Performed By: #### 5 7021-8 ####ANDI Cotter ([id number])[facility] ([facility])[address] [place] [address] Immature granulocytes/100 WBC (Bld) 0.4 % Normal 0.0-0.9 [facility] Comment on above: Result Comment: Debbie ture Granulocyte Count (IG) includes promyelocytes, myelocytes and metamyelocytes but does not include bands. Percent differential counts (%) should be interpreted in the context of the absolute cell counts (cells/UL). Performed By: #### 5 7021-8 ####ANDI Cotter ([id number])[facility] ([facility])[address] [place] [address] Lymphocytes (Bld) [#/Vol] 1.19 x10*3/uL Low 1.20-4.80 [facility] Comment on above: Performed By: #### 5 7021-8 ####ANDI Cotter ([id number])[facility] ([facility])[address] [place] [address] Lymphocytes/100 WBC (Bld) 12.0 % Normal 13.0-44.0 [facility] Comment on above: Performed By: #### 5 7021-8 ####ANDI Cotter ([id number])[facility] ([facility])[address] [place] [address] Monocytes (Bld) [#/Vol] 0.64 x10*3/uL Normal 0.10-1.00 [facility] Comment on above: Performed By: #### 5 7021-8 ####ANDI Cotter ([id number])[facility] ([facility])[address] [place] [address] Monocytes/100 WBC (Bld) 6.5 % Normal 2.0-10.0 [facility] Comment on above: Performed By: #### 5 7021-8 ####ANDI Cotter ([id number])[facility] ([facility])[address] [place] [address] 63153 Neutrophils (Bld) [#/Vol] 7.85 x10*3/uL High 1.20-7.70 [facility] Comment on above: Result Comment: Perc ent differential counts (%) should be interpreted in the context of the absolute cell counts (cells/uL). Performed By: #### 5 7021-8 ####ANDI Cotter ([id number])[facility] ([facility])[address] [place] [address] 31182 Neutrophils/100 WBC (Bld) 79.1 % Normal 40.0-80.0 [facility] Comment on above: Performed By: #### 5 7021-8 ####ANDI Cotter ([id number])[facility] ([facility])[address] [place] [address] 88155 Complete blood count panelon 03-19-2024 Erythrocyte distribution width (RBC) [Ratio] 14.3 % Normal 11.5-14.5 [facility] Comment on above: Performed By: #### 5 8410-2 ####ANDI Cotter ([id number])[facility] ([facility])[address] [place] [address] Performed By: #### 5 7021-8 ####ANDI Cotter ([id number])[facility] ([facility])[address] [place] [address]1371 Hematocrit (Bld) [Volume fraction] 31.9 % Low 36.0-46.0 [facility] Comment on above: Performed By: #### 5 8410-2 ####ANDI Cotter ([id number])[facility] ([facility])[address] [place] [address] Performed By: #### 5 7021-8 ####ANDI Cotter ([id number])[facility] ([facility])[address] [place] [address] 23465 Hemoglobin (Bld) [Mass/Vol] 10.0 g/dL Low 12.0-16.0 [facility] Comment on above: Performed By: #### 5 8410-2 ####ANDI Cotter ([id number])[facility] ([facility])[address] [place] [address] 11306 Performed By: #### 5 7021-8 ####ANDI Cotter ([id number])[facility] ([facility])[address] [place] [address] 15519 MCH (RBC) [Entitic mass] 27.1 pg Normal 26.0-34.0 [facility] Comment on above: Performed By: #### 5 8410-2 ####ANDI Cotter ([id number])[facility] ([facility])[address] [place] [address] 31866 Performed By: #### 5 7021-8 ####ANDI Cotter ([id number])[facility] ([facility])[address] [place] [address] 60550 MCHC (RBC) [Mass/Vol] 31.3 g/dL Low 32.0-36.0 [facility] Comment on above: Performed By: #### 5 8410-2 ####ANDI Cotter ([id number])[facility] ([facility])[address] [place] [address]57 Performed By: #### 5 7021-8 ####ANDI Cotter ([id number])[facility] ([facility])[address] [place] [address] 32583 MCV (RBC) [Entitic vol] 86 fL Normal 80-100 [facility] Comment on above: Performed By: #### 5 8410-2 ####ANDI Cotter ([id number])[facility] ([facility])[address]73 [place] [address] Performed By: #### 5 7021-8 ####ANDI Cotter ([id number])[facility] ([facility])[address] [place] [address] Nucleated RBC/100 WBC (Bld) [Ratio] 0.0 /100 WBCs Normal 0.0-0.0 [facility] Comment on above: Performed By: #### 5 8410-2 ####ANDI Cotter ([id number])[facility] ([facility])[address]043 [place] [address] Performed By: #### 5 7021-8 ####ANDI Cotter ([id number])[facility] ([facility])[address] [place] [address] 10985 Platelets (Bld) [#/Vol] 311 x10*3/uL Normal 150-450 [facility] Comment on above: Performed By: #### 5 8410-2 ####ANDI Cotter ([id number])[facility] ([facility])[address]476 [place] [address] Performed By: #### 5 7021-8 ####ANDI Cotter ([id number])[facility] ([facility])[address] [place] [address] RBC (Bld) [#/Vol] 3.69 x10*6/uL Low 4.00-5.20 [facility] Comment on above: Performed By: #### 5 8410-2 ####ANDI Cotter ([id number])[facility] ([facility])[address]39 [place] [address] Performed By: #### 5 7021-8 ####ANDI Cotter ([id number])[facility] ([facility])[address] [place] [address] WBC (Bld) [#/Vol] 10.1 x10*3/uL Normal 4.4-11.3 [facility] Comment on above: Performed By: #### 5 8410-2 ####ANDI Cotter ([id number])[facility] ([facility])[address] [place] [address] Performed By: #### 5 7021-8 ####ANDI Cotter ([id number])[facility] ([facility])[address] [place] [address] Comprehensive metabolic 2000 panelon 03-19-2024 Albumin BCP dye [Mass/Vol] 3.6 g/dL Normal 3.4-5.0 [facility] Comment on above: Performed By: #### 2 4323-8 ####ANDI Cotter ([id number])[facility] ([facility])[address] [place] [address] 11369 ALP [Catalytic activity/Vol] 129 U/L High 33-110 [facility] Comment on above: Performed By: #### 2 4323-8 ####ANDI Cotter ([id number])[facility] ([facility])[address] [place] [address] 72184 ALT With P-5'-P [Catalytic activity/Vol] 43 U/L Normal 7-45 [facility] Comment on above: Result Comment: Evelyn ents treated with Sulfasalazine may generate falsely decreased results for ALT. Performed By: #### 2 4323-8 ####ANDI Cotter ([id number])[facility] ([facility])[address] [place] [address] Anion gap [Moles/Vol] 17 mmol/L Normal 10-20 [facility] Comment on above: Performed By: #### 2 4323-8 ####ANDI Cotter ([id number])[facility] ([facility])[address] [place] [address] AST With P-5'-P [Catalytic activity/Vol] 22 U/L Normal 9-39 [facility] Comment on above: Performed By: #### 2 4323-8 ####ANDI Cotter ([id number])[facility] ([facility])[address] [place] [address] [place] [address] Bilirubin [Mass/Vol] 0.4 mg/dL Normal 0.0-1.2 [facility] Comment on above: Performed By: #### 2 4323-8 ####ANDI CHAUDAHRY L ([id number])[facility] ([facility])[address] [place] [address] Calcium [Mass/Vol] 9.2 mg/dL Normal 8.6-10.6 [facility] Comment on above: Performed By: #### 2 4323-8 ####ANDI CHAUDHARY L ([id number])[facility] ([facility])[address]15 [place] [address] Chloride [Moles/Vol] 101 mmol/L Normal 98-107 [facility] Comment on above: Performed By: #### 2 4323-8 ####ANDI CHAUDHARY L ([id number])[facility] ([facility])[address]67 [place] [address] CO2 [Moles/Vol] 22 mmol/L Normal 21-32 [facility] Comment on above: Performed By: #### 2 4323-8 ####ANDI CHAUDHARY L ([id number])[facility] ([facility])[address]55 [place] [address] Creatinine [Mass/Vol] 0.50 mg/dL Normal 0.50-1.05 [facility] Comment on above: Performed By: #### 2 4323-8 ####ANDI CHAUDHARY L ([id number])[facility] ([facility])[address] [place] [address] GFR/1.73 sq M.predicted MDRD (S/P/Bld) [Vol rate/Area] mL/min/{1.73_m2} Normal >60 [facility] Comment on above: Result Comment: Calc ulations of estimated GFR are performed using the 2020 CKD-EPI Study Refit equation without the race variable for the IDMS-Traceable creatinine methods.https://jasn.asnjournals.org/content/early// N.[id number] Performed By: #### 2 4323-8 ####ANDI Cotter ([id number])[facility] ([facility])[address] [place] [address] Glucose [Mass/Vol] 135 mg/dL High 74-99 [facility] Comment on above: Performed By: #### 2 4323-8 ####ANDI Cotter ([id number])[facility] ([facility])[address]653 [place] [address] Potassium [Moles/Vol] 3.5 mmol/L Normal 3.5-5.3 [facility] Comment on above: Performed By: #### 2 4323-8 ####ANDI Cotter ([id number])[facility] ([facility])[address] [place] [address]2611 Protein [Mass/Vol] 7.5 g/dL Normal 6.4-8.2 [facility] Comment on above: Performed By: #### 2 4323-8 ####ANDI Cotter ([id number])[facility] ([facility])[address] [place] [address] Sodium [Moles/Vol] 136 mmol/L Normal 136-145 [facility] Comment on above: Performed By: #### 2 4323-8 ####ANDI Cotter ([id number])[facility] ([facility])[address] [place] [address] Urea nitrogen [Mass/Vol] 7 mg/dL Normal 6-23 [facility] Comment on above: Performed By: #### 2 4323-8 ####ANDI Cotter ([id number])[facility] ([facility])[address] [place] [address] Glucose Test strip manual (B ld) [Mass/Vol]on 03-19-2024 Glucose [Mass/Vol] 103 mg/dL High 74-99 [facility] Comment on above: Performed By: #### 2 341-6 ####ANDI CHAUDHARY L (44029)[facility] ([facility])[address]190 [place] [address] Glucose [Mass/Vol] 124 mg/dL High [address] [place] [address] Comment on above: Performed By: #### 2 341-6 ####ANDI RENEEER L ([id number])[facility] ([facility])[address] [place] [address] Glucose [Mass/Vol] 153 mg/dL High [address] [place] [address] Comment on above: Performed By: #### 2 341-6 ####ANDI MADRIDTZER L ([id number])[facility] ([facility])[address] [place] [address] Glucose [Mass/Vol] 133 mg/dL High [address] [place] [address] Comment on above: Performed By: #### 2 341-6 ####ANDI RENEEER L ([id number])[facility] ([facility])[address]39 [place] [address] Glucose [Mass/Vol] 132 mg/dL High [address] [place] [address] Comment on above: Performed By: #### 2 341-6 ####ANDI CHAUDHARY L ([id number])[facility] ([facility])[address] [place] [address] Glucose [Mass/Vol] 146 mg/dL High [address] [place] [address] Comment on above: Performed By: #### 2 341-6 ####ANDI CHAUDHARY L (60057)[facility] ([facility])[address] [place] [address] Heparin.unfractionatedon Heparin unfractionated Chromogenic method Qn (PPP) 0.5 IU/mL Normal See Comment Below for Therapeutic Ranges [facility] Comment on above: Order Comment: Obtai n 4 hours after any Heparin dosage change. Nursing to release order.The therapeutic reference range for UFH may be either 0.3-0.6 IU/mL or 0.3-0.7 IU/mL based on the clinical setting for anticoagulant therapy and the associated nomogram used. For Heparin dosing guidelines based on clinical scenario and Heparin Assay results, please refer to local Pharmacy and the [facility] Guidelines for Anticoagulation Therapy available on the [facility] intranet at: [email or web address] Performed By: #### 3 274-8 ####ANDI Cotter ([id number])[facility] ([facility])[address] [place] [address] Heparin unfractionated Chromogenic method Qn (PPP) 0.9 IU/mL Normal See Comment Below for Therapeutic Ranges [facility] Comment on above: Order Comment: Obtai n 4 hours after any Heparin dosage change. Nursing to release order.The therapeutic reference range for UFH may be either 0.3-0.6 IU/mL or 0.3-0.7 IU/mL based on the clinical setting for anticoagulant therapy and the associated nomogram used. For Heparin dosing guidelines based on clinical scenario and Heparin Assay results, please refer to local Pharmacy and [facility] Guidelines for Anticoagulation Therapy available on the [facility] intranet at: [email or web address] Performed By: #### 3 274-8 ####ANDI Cotter ([id number])[facility] ([facility])[address] [place] [address] Heparin unfractionated Chromogenic method Qn (PPP) 0.1 IU/mL Normal See Comment Below for Therapeutic Ranges [facility] Comment on above: Order Comment: Obtai n 4 hours after any Heparin dosage change. Nursing to release order.The therapeutic reference range for UFH may be either 0.3-0.6 IU/mL or 0.3-0.7 IU/mL based on the clinical setting for anticoagulant therapy and the associated nomogram used. For Heparin dosing guidelines based on clinical scenario and Heparin Assay results, please refer to local Pharmacy and the [facility] Guidelines for Anticoagulation Therapy available on the [facility] intranet at: [email or web address] Performed By: #### 3 274-8 ####ANDI Cotter ([id number])[facility] ([facility])[address] [place] [address] Magnesiumon 03-19-2024 Magnesium [Mass/Vol] 2.03 mg/dL Normal 1.60-2.40 [facility] Comment on above: Performed By: #### 1 9123-9 ####ANDI Cotter ([id number])[facility] ([facility])[id number] [place] [address] 76165 PT and aPTT panel Coag (PPP) on 03-19-2024 aPTT Coag (PPP) [Time] 25 s Low 27-38 [facility] Comment on above: Order Comment: The A PTT is no longer used for monitoring Unfractionated Heparin Therapy. For monitoring Heparin Therapy, use the Heparin Assay. Performed By: #### 3 4529-8 ####ANDI Cotter (75552)[facility] ([facility])[address] [place] [address] INR Coag (PPP) [Relative time] 1.3 High 0.9-1.1 [facility] Comment on above: Order Comment: The A PTT is no longer used for monitoring Unfractionated Heparin Therapy. For monitoring Heparin Therapy, use the Heparin Assay. Performed By: #### 3 4529-8 ####ANDI Cotter ([id number])[facility] ([facility])[address] [place] [address] PT Coag (PPP) [Time] 14.1 s High 9.8-12.8 [facility] Comment on above: Order Comment: The A PTT is no longer used for monitoring Unfractionated Heparin Therapy. For monitoring Heparin Therapy, use the Heparin Assay. Performed By: #### 3 4529-8 ####ANDI Cotter ([id number])[facility] ([facility])[address] [place] [address] Phosphateon 03-19-2024 Phosphate [Mass/Vol] 3.6 mg/dL Normal 2.5-4.9 [facility] Comment on above: Result Comment: The performance characteristics of phosphorus testing in heparinized plasma have been validated by the individual laboratory site where testing is performed. Testing on heparinized plasma is not approved by the FDA; however, such approval is not necessary. Performed By: #### 2 777-1 ####ANDI Cotter ([id number])[facility] ([facility])[id number] [place] [address] 17911 CBC panel Auto (Bld)on 03-18 Erythrocyte distribution width (RBC) [Ratio] 14.5 % Normal 11.5-14.5 [facility] Comment on above: Performed By: #### 5 8410-2 ####ANDI Cotter ([id number])[facility] ([facility])[address] [place] [address] Hematocrit (Bld) [Volume fraction] 32.8 % Low 36.0-46.0 [facility] Comment on above: Performed By: #### 5 8410-2 ####ANDI Cotter ([id number])[facility] ([facility])[address] [place] [address] Hemoglobin (Bld) [Mass/Vol] 10.2 g/dL Low 12.0-16.0 [facility] Comment on above: Performed By: #### 5 8410-2 ####ANDI Cotter ([id number])[facility] ([facility])[address] [place] [address] MCH (RBC) [Entitic mass] 27.0 pg Normal 26.0-34.0 [facility] Comment on above: Performed By: #### 5 8410-2 ####ANDI Cotter ([id number])[facility] ([facility])[address] [place] [address] MCHC (RBC) [Mass/Vol] 31.1 g/dL Low 32.0-36.0 [facility] Comment on above: Performed By: #### 5 8410-2 ####ANDI Cotter ([id number])[facility] ([facility])[address]98 [place] [address] MCV (RBC) [Entitic vol] 87 fL Normal 80-100 [facility] Comment on above: Performed By: #### 5 8410-2 ####ANDI Cotter ([id number])[facility] ([facility])[address] [place] [address] Nucleated RBC/100 WBC (Bld) [Ratio] 0.0 /100 WBCs Normal 0.0-0.0 [facility] Comment on above: Performed By: #### 5 8410-2 ####ANDI Cotter ([id number])[facility] ([facility])[address] [place] [address] Platelets (Bld) [#/Vol] 282 x10*3/uL Normal 150-450 [facility] Comment on above: Performed By: #### 5 8410-2 ####ANDI Cotter ([id number])[facility] ([facility])[address] [place] [address] RBC (Bld) [#/Vol] 3.78 x10*6/uL Low 4.00-5.20 [facility] Comment on above: Performed By: #### 5 8410-2 ####ANDI Cotter ([id number])[facility] ([facility])[address]83 [place] [address] WBC (Bld) [#/Vol] 11.7 x10*3/uL High 4.4-11.3 [facility] Comment on above: Performed By: #### 5 8410-2 ####ANDI Cotter ([id number])[facility] ([facility])[address]757 [place] [address] Comprehensive metabolic 2000 panelon 03-18-2024 Albumin BCP dye [Mass/Vol] 3.7 g/dL Normal 3.4-5.0 [facility] Comment on above: Performed By: #### 2 4323-8 ####ANDI Cotter ([id number])[facility] ([facility])[address]145 [place] [address] ALP [Catalytic activity/Vol] 132 U/L High 33-110 [facility] Comment on above: Performed By: #### 2 4323-8 ####ANDI Cotter ([id number])[facility] ([facility])[address]32 [place] [address] ALT With P-5'-P [Catalytic activity/Vol] 63 U/L High 7-45 [facility] Comment on above: Result Comment: Evelyn ents treated with Sulfasalazine may generate falsely decreased results for ALT. Performed By: #### 2 4323-8 ####ANDI Cotter ([id number])[facility] ([facility])[address] [place] [address] Anion gap [Moles/Vol] 14 mmol/L Normal 10-20 [facility] Comment on above: Performed By: #### 2 4323-8 ####ANDI Cotter ([id number])[facility] ([facility])[address] [place] [address] AST With P-5'-P [Catalytic activity/Vol] 33 U/L Normal 9-39 [facility] Comment on above: Performed By: #### 2 4323-8 ####ANDI Cotter ([id number])[facility] ([facility])[address] [place] [address] Bilirubin [Mass/Vol] 0.7 mg/dL Normal 0.0-1.2 [facility] Comment on above: Performed By: #### 2 4323-8 ####ANDI Cotter ([id number])[facility] ([facility])[address]48 [place] [address] Calcium [Mass/Vol] 8.8 mg/dL Normal 8.6-10.6 [facility] Comment on above: Performed By: #### 2 4323-8 ####ANDI Cotter ([id number])[facility] ([facility])[address]34 [place] [address] Chloride [Moles/Vol] 99 mmol/L Normal 98-107 [facility] Comment on above: Performed By: #### 2 4323-8 ####ANDI Cotter ([id number])[facility] ([facility])[address] [place] [address] CO2 [Moles/Vol] 24 mmol/L Normal 21-32 [facility] Comment on above: Performed By: #### 2 4323-8 ####ANDI Cotter ([id number])[facility] ([facility])[address]63 [place] [address] Creatinine [Mass/Vol] 0.47 mg/dL Low 0.50-1.05 [facility] Comment on above: Performed By: #### 2 4323-8 ####ANDI Cotter ([id number])[facility] ([facility])[address]31 [place] [address] GFR/1.73 sq M.predicted MDRD (S/P/Bld) [Vol rate/Area] mL/min/{1.73_m2} Normal >60 [facility] Comment on above: Result Comment: Calc ulations of estimated GFR are performed using the 2020 CKD-EPI Study Refit equation without the race variable for the IDMS-Traceable creatinine methods.https://jasn.asnjournals.org/content// N.4837140041 Performed By: #### 2 4323-8 ####ANDI Cotter ([id number])[facility] ([facility])[address]60 [place] [address] Glucose [Mass/Vol] 169 mg/dL High 74-99 [facility] Comment on above: Performed By: #### 2 4323-8 ####ANDI Cotter ([id number])[facility] ([facility])[address]71 [place] [address] Potassium [Moles/Vol] 3.7 mmol/L Normal 3.5-5.3 [facility] Comment on above: Performed By: #### 2 4323-8 ####ANDI Cotter ([id number])[facility] ([facility])[address]491 [place] [address] Protein [Mass/Vol] 7.5 g/dL Normal 6.4-8.2 [facility] Comment on above: Performed By: #### 2 4323-8 ####ANDI Cotter ([id number])[facility] ([facility])[address]147 [place] [address] Sodium [Moles/Vol] 133 mmol/L Low 136-145 [facility] Comment on above: Performed By: #### 2 4323-8 ####ANDI Cotter ([id number])[facility] ([facility])[address]552 [place] [address] Urea nitrogen [Mass/Vol] 8 mg/dL Normal 6-23 [facility] Comment on above: Performed By: #### 2 4323-8 ####ANDI Cotter ([id number])[facility] ([facility])[address]32 [place] [address] Glucose Test strip manual (B ld) [Mass/Vol]on 03-18-2024 Glucose [Mass/Vol] 159 mg/dL High 74-99 [facility] Comment on above: Performed By: #### 2 341-6 ####ANDI Cotter ([id number])[facility] ([facility])[address]85 [place] [address] Glucose [Mass/Vol] 159 mg/dL High 74-99 [facility] Comment on above: Performed By: #### 2 341-6 ####ANDI Cotter ([id number])[facility] ([facility])[address]69 [place] [address] Glucose [Mass/Vol] 156 mg/dL High 74-99 [facility] Comment on above: Performed By: #### 2 341-6 ####ANDI Cotter ([id number])[facility] ([facility])[address]35 [place] [address] Glucose [Mass/Vol] 150 mg/dL High 74-99 [facility] Comment on above: Performed By: #### 2 341-6 ####ANDI Cotter ([id number])[facility] ([facility])[address]37 [place] [address] Heparin.unfractionatedon Heparin unfractionated Chromogenic method Qn (PPP) 0.5 IU/mL Normal See Comment Below for Therapeutic Ranges [facility] Comment on above: Order Comment: Obtai n 4 hours after any Heparin dosage change. Nursing to release order.The therapeutic reference range for UFH may be either 0.3-0.6 IU/mL or 0.3-0.7 IU/mL based on the clinical setting for anticoagulant therapy and the associated nomogram used. For Heparin dosing guidelines based on clinical scenario and Heparin Assay results, please refer to local Pharmacy and the [facility] Guidelines for Anticoagulation Therapy available on the [facility] intranet at: [email or web address] Performed By: #### 3 274-8 ####ANDI Cotter ([id number])[facility] ([facility])[address] [place] [address] Magnesiumon 03-18-2024 Magnesium [Mass/Vol] 2.32 mg/dL Normal 1.60-2.40 [facility] Comment on above: Performed By: #### 1 9123-9 ####ANDI Cotter ([id number])[facility] ([facility])[address]346 [place] [address] PT and aPTT panel Coag (PPP) on 03-18-2024 aPTT Coag (PPP) [Time] 115 s Critically high 27-38 [facility] Comment on above: Order Comment: The A PTT is no longer used for monitoring Unfractionated Heparin Therapy. For monitoring Heparin Therapy, use the Heparin Assay. Performed By: #### 3 4529-8 ####ANDI Cotter ([id number])[facility] ([facility])[address]329 [place] [address] INR Coag (PPP) [Relative time] 1.5 High 0.9-1.1 [facility] Comment on above: Order Comment: The A PTT is no longer used for monitoring Unfractionated Heparin Therapy. For monitoring Heparin Therapy, use the Heparin Assay. Performed By: #### 3 4529-8 ####ANDI Cotter ([id number])[facility] ([facility])[address]67 [place] [address] PT Coag (PPP) [Time] 16.7 s High 9.8-12.8 [facility] Comment on above: Order Comment: The A PTT is no longer used for monitoring Unfractionated Heparin Therapy. For monitoring Heparin Therapy, use the Heparin Assay. Performed By: #### 3 4529-8 ####ANDI Cotter ([id number])[facility] ([facility])[address] [place] [address] Phosphateon 03-18-2024 Phosphate [Mass/Vol] 2.6 mg/dL Normal 2.5-4.9 [facility] Comment on above: Result Comment: The performance characteristics of phosphorus testing in heparinized plasma have been validated by the individual laboratory site where testing is performed. Testing on heparinized plasma is not approved by the FDA; however, such approval is not necessary. Performed By: #### 2 777-1 ####ANDI Cotter ([id number])[facility] ([facility])[address] [place] [address] Coagulation tissue factor in ducedon 03-17-2024 PT Coag (PPP) [Time] 16.5 s High 9.8-12.8 [facility] Comment on above: Performed By: #### 5 902-2 ####BRYAN EZRA ([id number])[facility] ([facility])[address] [place] [address] Comprehensive metabolic 2000 panelon 03-17-2024 Albumin BCP dye [Mass/Vol] 3.1 g/dL Low 3.4-5.0 [facility] Comment on above: Performed By: #### 2 4323-8 ####ANDI Cotter ([id number])[facility] ([facility])[address]89 [place] [address] ALP [Catalytic activity/Vol] 115 U/L High 33-110 [facility] Comment on above: Performed By: #### 2 4323-8 ####ANDI Cotter ([id number])[facility] ([facility])[address]36 [place] [address] ALT With P-5'-P [Catalytic activity/Vol] 57 U/L High 7-45 [facility] Comment on above: Result Comment: Evelyn ents treated with Sulfasalazine may generate falsely decreased results for ALT. Performed By: #### 2 4323-8 ####ANDI Cotter ([id number])[facility] ([facility])[address]14 [place] [address] Anion gap [Moles/Vol] 14 mmol/L Normal 10-20 [facility] Comment on above: Performed By: #### 2 4323-8 ####ANDI Cotter ([id number])[facility] ([facility])[address]75 [place] [address] AST With P-5'-P [Catalytic activity/Vol] 48 U/L High 9-39 [facility] Comment on above: Performed By: #### 2 4323-8 ####ANDI Cotter ([id number])[facility] ([facility])[address]69 [place] [address] Bilirubin [Mass/Vol] 0.8 mg/dL Normal 0.0-1.2 [facility] Comment on above: Performed By: #### 2 4323-8 ####ANDI Cotter ([id number])[facility] ([facility])[address]292 [place] [address] Calcium [Mass/Vol] 7.3 mg/dL Low 8.6-10.6 [facility] Comment on above: Performed By: #### 2 4323-8 ####ANDI Cotter ([id number])[facility] ([facility])[address]154 [place] [address] Chloride [Moles/Vol] 104 mmol/L Normal 98-107 [facility] Comment on above: Performed By: #### 2 4323-8 ####ANDI CHAUDHARY L ([id number])[facility] ([facility])[address]73 [place] [address] CO2 [Moles/Vol] 21 mmol/L Normal 21-32 [facility] Comment on above: Performed By: #### 2 4323-8 ####ANDI Cotter ([id number])[facility] ([facility])[address]260 [place] [address] Creatinine [Mass/Vol] 0.46 mg/dL Low 0.50-1.05 [facility] Comment on above: Performed By: #### 2 4323-8 ####ANDI Cotter ([id number])[facility] ([facility])[address]24 [place] [address] GFR/1.73 sq M.predicted MDRD (S/P/Bld) [Vol rate/Area] mL/min/{1.73_m2} Normal >60 [facility] Comment on above: Result Comment: Calc ulations of estimated GFR are performed using the 2020 CKD-EPI Study Refit equation without the race variable for the IDMS-Traceable creatinine methods.https://jasn.asnjournals.org/content/early/ N.9367453486 Performed By: #### 2 4323-8 ####ANDI Cotter ([id number])[facility] ([facility])[address]450 [place] [address] Glucose [Mass/Vol] 149 mg/dL High 74-99 [facility] Comment on above: Performed By: #### 2 4323-8 ####ANDI Cotter ([id number])[facility] ([facility])[address]69 [place] [address] Potassium [Moles/Vol] 3.1 mmol/L Low 3.5-5.3 [facility] Comment on above: Performed By: #### 2 4323-8 ####ANDI Cotter ([id number])[facility] ([facility])[address]757 [place] [address] Protein [Mass/Vol] 6.2 g/dL Low 6.4-8.2 [facility] Comment on above: Performed By: #### 2 4323-8 ####ANDI Cotter ([id number])[facility] ([facility])[address]390 [place] [address] Sodium [Moles/Vol] 136 mmol/L Normal 136-145 [facility] Comment on above: Performed By: #### 2 4323-8 ####ANDI Cotter ([id number])[facility] ([facility])[address]594 [place] [address] Urea nitrogen [Mass/Vol] 8 mg/dL Normal 6-23 [facility] Comment on above: Performed By: #### 2 4323-8 ####ANDI Cotter ([id number])[facility] ([facility])[address]34 [place] [address] ECG 12-LEADon 03-17-2024 ECG 12-LEAD Ventricular Rate 99 Atrial Rate 99 P-R Interval 136 QRS Duration 80 Q-T Interval 340 QTC Calculation(Bazett) 436 P [place] 33 R [place] -5 T [place] 34 QRS Count 16 Q Onset 211 P Onset 143 P Offset 194 T Offset 381 QTC Fredericia 401 Diagnosis Normal sinus rhythm Normal ECG When compared with ECG of 05-MAR-2024 17:23, No significant change was found See ED provider note for full interpretation and clinical correlation Confirmed by Hemalatha Lange ([id number]) on 03/24/2024 4:40:33 PM Normal [facility] Glucose Test strip manual (B ld) [Mass/Vol]on 03-17-2024 Glucose [Mass/Vol] 180 mg/dL High 74-99 [facility] Comment on above: Performed By: #### 2 341-6 ####ANDI Cotter ([id number])[facility] ([facility])[address] [place] [address] Glucose [Mass/Vol] 173 mg/dL High 74-99 [facility] Comment on above: Performed By: #### 2 341-6 ####ANDI Cotter ([id number])[facility] ([facility])[address]41 [place] [address] Glucose [Mass/Vol] 181 mg/dL High 74-99 [facility] Comment on above: Performed By: #### 2 341-6 ####IRVIN MUNGUIA ([id number])[facility] ([facility])[address] [place] [address] Heparin.unfractionatedon Heparin unfractionated Chromogenic method Qn (PPP) 0.5 IU/mL Normal See Comment Below for Therapeutic Ranges [facility] Comment on above: Order Comment: Obtai n 4 hours after initiation of heparin infusion. Nursing to release order.The therapeutic reference range for UFH may be either 0.3-0.6 IU/mL or 0.3-0.7 IU/mL based on the clinical setting for anticoagulant therapy and the associated nomogram used. For Heparin dosing guidelines based on clinical scenario and Heparin Assay results, please refer to local Pharmacy and the [facility] Guidelines for Anticoagulation Therapy available on the [facility] intranet at: [email or web address] Performed By: #### 3 274-8 ####ANDI Cotter ([id number])[facility] ([facility])[address] [place] [address] Magnesiumon 03-17-2024 Magnesium [Mass/Vol] 1.63 mg/dL Normal 1.60-2.40 [facility] Comment on above: Performed By: #### 1 9123-9 ####ANDI Cotter ([id number])[facility] ([facility])[address]857 [place] [address] PT Coag (PPP) [Time]on 03-17 INR Coag (PPP) [Relative time] 1.4 High 0.9-1.1 [facility] Comment on above: Performed By: #### 5 902-2 ####IRVIN MUNGUIA ([id number])[facility] ([facility])[address] [place] [address] PT and aPTT panel Coag (PPP) on 03-17-2024 aPTT Coag (PPP) [Time] 24 s Low 27-38 [facility] Comment on above: Order Comment: The A PTT is no longer used for monitoring Unfractionated Heparin Therapy. For monitoring Heparin Therapy, use the Heparin Assay. Performed By: #### 3 4529-8 ####ANDI Cotter ([id number])[facility] ([facility])[address] [place] [address] INR Coag (PPP) [Relative time] 1.5 High 0.9-1.1 [facility] Comment on above: Order Comment: The A PTT is no longer used for monitoring Unfractionated Heparin Therapy. For monitoring Heparin Therapy, use the Heparin Assay. Performed By: #### 3 4529-8 ####ANDI Cotter ([id number])[facility] ([facility])[address] [place] [address] PT Coag (PPP) [Time] 17.2 s High 9.8-12.8 [facility] Comment on above: Order Comment: The A PTT is no longer used for monitoring Unfractionated Heparin Therapy. For monitoring Heparin Therapy, use the Heparin Assay. Performed By: #### 3 4529-8 ####ANDI Cotter ([id number])[facility] ([facility])[address] [place] [address] Phosphateon 03-17-2024 Phosphate [Mass/Vol] 2.9 mg/dL Normal 2.5-4.9 [facility] Comment on above: Result Comment: The performance characteristics of phosphorus testing in heparinized plasma have been validated by the individual laboratory site where testing is performed. Testing on heparinized plasma is not approved by the FDA; however, such approval is not necessary. Performed By: #### 2 777-1 ####ANDI Cotter ([id number])[facility] ([facility])[address] [place], [place] [id number] XR ABDOMEN 1 VIEWon 03-17-20 24 XR ABDOMEN 1 VIEW Normal [facility] Amylaseon 03-16-2024 Amylase [Catalytic activity/Vol] 76 U/L Normal 29-103 [facility] Comment on above: Performed By: #### 1 798-8 ####IRVIN MUNGUIA ([id number])[facility] ([facility])[address] [place] [address] CBC W Auto Differential pane l (Bld)on 03-16-2024 Basophils (Bld) [#/Vol] 0.04 x10*3/uL Normal 0.00-0.10 [facility] Comment on above: Performed By: #### 5 7021-8 ####IRVIN MUNGUIA ([id number])[facility] ([facility])[address] [place] [address] Basophils/100 WBC (Bld) 0.3 % Normal 0.0-2.0 [facility] Comment on above: Performed By: #### 5 7021-8 ####IRVIN MUNGUIA ([id number])[facility] ([facility])[address] [place] [address] Eosinophils (Bld) [#/Vol] 0.11 x10*3/uL Normal 0.00-0.70 [facility] Comment on above: Performed By: #### 5 7021-8 ####IRVIN MUNGUIA ([id number])[facility] ([facility])[address] [place] [address] Eosinophils/100 WBC (Bld) 0.8 % Normal 0.0-6.0 [facility] Comment on above: Performed By: #### 5 7021-8 ####IRVIN MUNGUIA ([id number])[facility] ([facility])[address] [place] [address]76[address] Erythrocyte distribution width (RBC) [Ratio] 14.2 % Normal 11.5-14.5 [facility] Comment on above: Performed By: #### 5 7021-8 ####IRVIN MUNGUIA ([id number])[facility] ([facility])[address] [place] [address] Hematocrit (Bld) [Volume fraction] 36.8 % Normal 36.0-46.0 [facility] Comment on above: Performed By: #### 5 7021-8 ####IRVIN MUNGUIA ([id number])[facility] ([facility])[address] [place] [address] Hemoglobin (Bld) [Mass/Vol] 11.3 g/dL Low 12.0-16.0 [facility] Comment on above: Performed By: #### 5 7021-8 ####IRVIN MUNGUIA ([id number])[facility] ([facility])[address] [place], [place] [address] Immature granulocytes (Bld) [#/Vol] 0.11 x10*3/uL Normal 0.00-0.70 [facility] Comment on above: Performed By: #### 5 7021-8 ####IRVIN MUNGUIA ([id number])[facility] ([facility])[address] [place], [place] [address] Immature granulocytes/100 WBC (Bld) 0.8 % Normal 0.0-0.9 [facility] Comment on above: Result Comment: Debbie ture Granulocyte Count (IG) includes promyelocytes, myelocytes and metamyelocytes but does not include bands. Percent differential counts (%) should be interpreted in the context of the absolute cell counts (cells/UL). Performed By: #### 5 7021-8 ####IRVIN MUNGUIA ([id number])[facility] ([facility])[address] [place], [place] [address] Lymphocytes (Bld) [#/Vol] 2.72 x10*3/uL Normal 1.20-4.80 [facility] Comment on above: Performed By: #### 5 7021-8 ####IRVIN MUNGUIA ([id number])[facility] ([facility])[address] [place] [address] Lymphocytes/100 WBC (Bld) 20.3 % Normal 13.0-44.0 [facility] Comment on above: Performed By: #### 5 7021-8 ####IRVIN MUNGUIA ([id number])[facility] ([facility])[address] [place] [address] MCH (RBC) [Entitic mass] 26.8 pg Normal 26.0-34.0 [facility] Comment on above: Performed By: #### 5 7021-8 ####IRVIN MUNGUIA ([id number])[facility] ([facility])[address] [place] [address] MCHC (RBC) [Mass/Vol] 30.7 g/dL Low 32.0-36.0 [facility] Comment on above: Performed By: #### 5 7021-8 ####IRVIN MUNGUIA ([id number])[facility] ([facility])[address] [place] [address] 80951 MCV (RBC) [Entitic vol] 87 fL Normal 80-100 [facility] Comment on above: Performed By: #### 5 7021-8 ####IRVIN MUNGUIA ([id number])[facility] ([facility])[address] [place] [address] Monocytes (Bld) [#/Vol] 0.62 x10*3/uL Normal 0.10-1.00 [facility] Comment on above: Performed By: #### 5 7021-8 ####IRVIN MUNGUIA ([id number])[facility] ([facility])[address] [place] [address] 93716 Monocytes/100 WBC (Bld) 4.6 % Normal 2.0-10.0 [facility] Comment on above: Performed By: #### 5 7021-8 ####IRVIN MUNGUIA ([id number])[facility] ([facility])[address] [place] [address] 87794 Neutrophils (Bld) [#/Vol] 9.77 x10*3/uL High 1.20-7.70 [facility] Comment on above: Result Comment: Perc ent differential counts (%) should be interpreted in the context of the absolute cell counts (cells/uL). Performed By: #### 5 7021-8 ####IRVIN MUNGUIA ([id number])[facility] ([facility])[address] [place] [address] 39388 Neutrophils/100 WBC (Bld) 73.2 % Normal 40.0-80.0 [facility] Comment on above: Performed By: #### 5 7021-8 ####IRVIN MUNGUIA ([id number])[facility] ([facility])[address] [place] [address] 53084 Nucleated RBC/100 WBC (Bld) [Ratio] 0.0 /100 WBCs Normal 0.0-0.0 [facility] Comment on above: Performed By: #### 5 7021-8 ####IRVIN MUNGUIA ([id number])[facility] ([facility])[address] [place] [address] 22311 Platelets (Bld) [#/Vol] 322 x10*3/uL Normal 150-450 [facility] Comment on above: Performed By: #### 5 7021-8 ####IRVIN MUNGUIA ([id number])[facility] ([facility])[address] [place] [address] 40427 RBC (Bld) [#/Vol] 4.21 x10*6/uL Normal 4.00-5.20 [facility] Comment on above: Performed By: #### 5 7021-8 ####IRVIN MUNGUIA ([id number])[facility])[address] [place] [address] 29206 WBC (Bld) [#/Vol] 13.4 x10*3/uL High 4.4-11.3 [facility] Comment on above: Performed By: #### 5 7021-8 ####IRVIN MUNGUIA ([id number])[facility])[address] [place] [address] ABDOMEN PELVIS W IV CONTR Reny 03-16-2024 CT ABDOMEN PELVIS W IV CONTRAST Normal [facility] Comprehensive metabolic 2000 panelon 03-16-2024 Albumin BCP dye [Mass/Vol] 3.7 g/dL Normal 3.4-5.0 [facility] Comment on above: Performed By: #### 2 4323-8 ####IRVIN MUNGUIA ([id number])[facility])[address] [place] [address] 35103 ALP [Catalytic activity/Vol] 129 U/L High 33-110 [facility] Comment on above: Performed By: #### 2 4323-8 ####IRVIN MUNGUIA ([id number])[facility])[address] [place] [address] 66353 ALT With P-5'-P [Catalytic activity/Vol] 54 U/L High 7-45 [facility] Comment on above: Result Comment: Evelyn ents treated with Sulfasalazine may generate falsely decreased results for ALT. Performed By: #### 2 4323-8 ####IRVIN MUNGUIA ([id number])[facility])[address] [place] [address] 93947 Anion gap [Moles/Vol] 12 mmol/L Normal 10-20 [facility] Comment on above: Performed By: #### 2 4323-8 ####IRVIN MUNGUIA ([id number])[facility])[address] [place] [address] 62148 AST With P-5'-P [Catalytic activity/Vol] 47 U/L High 9-39 [facility] Comment on above: Performed By: #### 2 4323-8 ####IRVIN MUNGUIA ([id number])[facility])[address] [place] [address] 11514 Bilirubin [Mass/Vol] 0.3 mg/dL Normal 0.0-1.2 [facility] Comment on above: Performed By: #### 2 4323-8 ####IRVIN MUNGUIA ([id number])[facility])[address] [place] [address] 77711 Calcium [Mass/Vol] 8.7 mg/dL Normal 8.6-10.3 [facility] Comment on above: Performed By: #### 2 4323-8 ####IRVIN MUNGUIA ([id number])[facility])[address] [place] [address] 61292 Chloride [Moles/Vol] 100 mmol/L Normal 98-107 [facility] Comment on above: Performed By: #### 2 4323-8 ####IRVIN MUNGUIA ([id number])[facility])[address] [place] [address] 88714 CO2 [Moles/Vol] 25 mmol/L Normal 21-32 [facility] Comment on above: Performed By: #### 2 4323-8 ####IRVIN MUNGUIA ([id number])[facility])[address] [place] [address] 75365 Creatinine [Mass/Vol] 0.67 mg/dL Normal 0.50-1.05 [facility] Comment on above: Performed By: #### 2 4323-8 ####IRVIN MUNGUIA ([id number])[facility])[address] [place] [address] 85644 GFR/1.73 sq M.predicted MDRD (S/P/Bld) [Vol rate/Area] mL/min/{1.73_m2} Normal >60 [facility] Comment on above: Result Comment: Calc ulations of estimated GFR are performed using the 2020 CKD-EPI Study Refit equation without the race variable for the IDMS-Traceable creatinine methods.https://jasn.asnjournals.org/content/early/ N.7746158667 Performed By: #### 2 4323-8 ####IRVIN MUNGUIA ([id number])[facility])[address] [place] [address] 44461 Glucose [Mass/Vol] 174 mg/dL High 74-99 [facility] Comment on above: Performed By: #### 2 4323-8 ####IRVIN MUNGUIA ([id number])[facility])[address] [place] [address] 82642 Potassium [Moles/Vol] 3.5 mmol/L Normal 3.5-5.3 [facility] Comment on above: Performed By: #### 2 4323-8 ####IRVIN MUNGUIA ([id number])[facility])[address] [place] [address] 32665 Protein [Mass/Vol] 7.0 g/dL Normal 6.4-8.2 [facility] Comment on above: Performed By: #### 2 4323-8 ####IRVIN MUNGUIA ([id number])[facility])[address] [place] [address] 20841 Sodium [Moles/Vol] 133 mmol/L Low 136-145 [facility] Comment on above: Performed By: #### 2 4323-8 ####IRVIN MUNGUIA ([id number])[facility])[address] [place] [address] 40144 Urea nitrogen [Mass/Vol] 17 mg/dL Normal 6-23 [facility] Comment on above: Performed By: #### 2 4323-8 ####IRVIN MUNGUIA ([id number])[facility])[address] [place] [address] 69063 Lactateon 03-16-2024 Lactate [Moles/Vol] 1.7 mmol/L Normal 0.4-2.0 [facility] Comment on above: Order Comment: Venip uncture immediately after or during the administration of Metamizole may lead to falsely low results. Testing should be performed immediatelyprior to Metamizole dosing. Performed By: #### 2 524-7 ####IRVIN MUNGUIA ([id number])[facility])[address] [place] [address] 87184 Magnesiumon 03-16-2024 Magnesium [Mass/Vol] 1.91 mg/dL Normal 1.60-2.40 [facility] Comment on above: Performed By: #### 1 9123-9 ####IRVIN MUNGUIA ([id number])[facility])[address] [place], [place] [address] Triacylglycerol lipaseon Lipase [Catalytic activity/Vol] 65 U/L Normal 9-82 [facility] Comment on above: Order Comment: Venip uncture immediately after or during the administration of Metamizole may lead to falsely low results. Testing should be performed immediately prior to Metamizole dosing. Performed By: #### 3 040-3 ####IRVIN MUNGUIA ([id number])[facility] ([facility])[address] [place] [address] Urinalysis complete W Reflex Culture panel (U)on 03-16-2024 Appearance (U) Turbid Normal Clear [facility] Comment on above: Performed By: #### 5 8077-9 ####IRVIN MUNGUIA ([id number])[facility])[address] [place] [address] Bilirubin (U) [Mass/Vol] Negative Normal NEGATIVE [facility] Comment on above: Performed By: #### 5 8077-9 ####IRVIN MUNGUIA ([id number])[facility])[address] [place] [address] Calcium oxalate crystals Computer assisted (U) [#/Area] 4+ /HPF Abnormal NONE, 1+ [facility] Comment on above: Performed By: #### 5 8077-9 ####IRVIN MUNGUIA ([id number])[facility] ([facility])[address] [place], [place] [address] Color (U) Yellow Normal Light-Yellow , Yellow, Dark-Yellow [facility] Comment on above: Performed By: #### 5 8077-9 ####IRVIN MUNGUIA ([id number])[facility] ([facility])[address] [place], [place] [address] Epithelial cells.squamous Auto (Urine sed) [#/Area] 1-9 (SPARSE) Normal Reference range not established. [facility] Comment on above: Performed By: #### 5 8077-9 ####IRVIN MUNGUIA ([id number])[facility])[address] [place] [address] Glucose Auto test strip (U) [Mass/Vol] Normal Normal Normal [facility] Comment on above: Performed By: #### 5 8077-9 ####IRVIN MUNGUIA ([id number])[facility])[address] [place] [address] Ketones (U) [Mass/Vol] Negative Normal NEGATIVE [facility] Comment on above: Performed By: #### 5 8077-9 ####IRVIN MUNGUIA ([id number])[facility])[address] [place] [address] Leukocyte esterase Auto test strip Ql (U) Negative Normal NEGATIVE [facility] Comment on above: Performed By: #### 5 8077-9 ####IRVIN MUNGUIA ([id number])[facility])[address] [place] [address] Mucus Auto (Urine sed) [#/Area] FEW Normal Reference range not established. [facility] Comment on above: Performed By: #### 5 8077-9 ####IRVIN MUNGUIA ([id number])[facility])[address] [place] [address] Nitrite Auto test strip Ql (U) Negative Normal NEGATIVE [facility] Comment on above: Performed By: #### 5 8077-9 ####IRVIN MUNGUIA ([id number])[facility])[address] [place] [address] pH (U) 7.0 [pH] Normal 5.0, 5.5, 6.0, 6.5, 7.0, 7.5, 8.0 [facility] Comment on above: Performed By: #### 5 8077-9 ####IRVIN MUNGUIA ([id number])[facility])[address] [place] [address] Protein (U) [Mass/Vol] 20 (TRACE) Normal NEGATIVE, 10 (TRACE), 20 (TRACE) [facility] Comment on above: Performed By: #### 5 8077-9 ####IRVIN MUNGUIA ([id number])[facility])[address] [place] [address] 19006 RBC (U) [#/Vol] Negative Normal NEGATIVE [facility] Comment on above: Performed By: #### 5 8077-9 ####IRVIN MUNGUIA ([id number])[facility])[address] [place] [address] RBC Auto (Urine sed) [#/Area] 3-5 Normal NONE, 1-2, 3-5 [facility] Comment on above: Performed By: #### 5 8077-9 ####IRVIN MUGNUIA ([id number])[facility])[address] [place] [address] 22199 Specific gravity (U) [Rel density] 1.028 Normal 1.005-1.035 [facility] Comment on above: Performed By: #### 5 8077-9 ####IRVIN MUNGUIA ([id number])[facility])[address] [place] [address] 11275 Urobilinogen (U) [Mass/Vol] 3 (1+) Abnormal Normal [facility] Comment on above: Result Comment: Some pigments and medications may cause a false positive urobilinogen. Performed By: #### 5 8077-9 ####IRVIN MUNGUIA ([id number])[facility])[address] [place] [address] 16233 WBC Auto (Urine sed) [#/Area] 1-5 Normal 1-5, NONE [facility] Comment on above: Performed By: #### 5 8077-9 ####IRVIN MUNGUIA ([id number])[facility])[address] [place] [address] 63204 Basic metabolic 2000 panelon 03-11-2024 Anion gap [Moles/Vol] 14 mmol/L Normal 10-20 [facility] Comment on above: Performed By: #### 2 4321-2 ####IRVIN MUNGUIA ([id number])[facility] [place] [address] Calcium [Mass/Vol] 9.0 mg/dL Normal 8.6-10.3 [facility] Comment on above: Performed By: #### 2 4321-2 ####IRVIN MUNGUIA ([id number])[facility])[address] [place] [address] 79929 Chloride [Moles/Vol] 102 mmol/L Normal 98-107 [facility] Comment on above: Performed By: #### 2 4321-2 ####IRVIN MUNGUIA ([id number])[facility])[address] [place] [address] 85893 CO2 [Moles/Vol] 25 mmol/L Normal 21-32 [facility] Comment on above: Performed By: #### 2 1-2 ####IRVIN MUNGUIA ([id number])[facility])[address] [place] [address] 44338 Creatinine [Mass/Vol] 0.89 mg/dL Normal 0.50-1.05 [facility] Comment on above: Performed By: #### 2 4321-2 ####IRVIN MUNGUIA ([id number])[facility])[address] [place] [address] 72492 Glomerular filtration rate/1.73 sq M.predicted 80 mL/min/1.73m*2 Normal >60 [facility] Comment on above: Result Comment: Calc ulations of estimated GFR are performed using the 2020 CKD-EPI Study Refit equation without the race variable for the IDMS-Traceable creatinine methods.https://jasn.asnjournals.org/content/early/ N.4837445141 Performed By: #### 2 4321-2 ####IRVIN MUNGUIA ([id number])[facility])[address] [place] [address] 71298 Glucose [Mass/Vol] 159 mg/dL High 74-99 [facility] Comment on above: Performed By: #### 2 4321-2 ####IRVIN MUNGUIA ([id number])[facility])[address] [place] [address] 71102 Potassium [Moles/Vol] 4.1 mmol/L Normal 3.5-5.3 [facility] Comment on above: Performed By: #### 2 1-2 ####IRVIN MUNGUIA ([id number])[facility])[address] [place] [address] 95872 Sodium [Moles/Vol] 137 mmol/L Normal 136-145 [facility] Comment on above: Performed By: #### 2 4320-2 ####IRVIN MUNGUIA ([id number])[facility])[address] [place] [address] 17275 Urea nitrogen [Mass/Vol] 10 mg/dL Normal - [facility] Comment on above: Performed By: #### 2 4320-2 ####IRVIN MUNGUIA ([id number])[facility])[address] [place] [address] 92695 CBC W Auto Differential pane l (Bld)on 03-11-2024 Basophils (Bld) [#/Vol] 0.05 x10*3/uL Normal 0.00-0.10 [facility] Comment on above: Performed By: #### 5 7021-8 ####IRVIN MUNGUIA ([id number])[facility])[address] [place] [address] 36336 Basophils/100 WBC (Bld) 0.5 % Normal 0.0-2.0 [facility] Comment on above: Performed By: #### 5 7021-8 ####IRVIN MUNGUIA ([id number])[facility])[address] [place] [address] 07104 Eosinophils (Bld) [#/Vol] 0.13 x10*3/uL Normal 0.00-0.70 [facility] Comment on above: Performed By: #### 5 7021-8 ####IRVIN MUNGUIA ([id number])[facility])[address] [place] [address] 66218 Eosinophils/100 WBC (Bld) 1.4 % Normal 0.0-6.0 [facility] Comment on above: Performed By: #### 5 7021-8 ####IRVIN MUNGUIA ([id number])[facility])[address] [place] [address] 59779 Erythrocyte distribution width (RBC) [Ratio] 13.8 % Normal 11.5-14.5 [facility] Comment on above: Performed By: #### 5 7021-8 ####IRVIN MUNGUIA ([id number])[facility])[address] [place] [address] 03923 Hematocrit (Bld) [Volume fraction] 35.9 % Low 36.0-46.0 [facility] Comment on above: Performed By: #### 5 7021-8 ####IRVIN MUNGUIA ([id number])[facility])[address] [place] [address] 69409 Hemoglobin (Bld) [Mass/Vol] 11.0 g/dL Low 12.0-16.0 [facility] Comment on above: Performed By: #### 5 7021-8 ####IRVIN MUNGUIA ([id number])[facility])[address] [place] [address] 74504 Immature granulocytes (Bld) [#/Vol] 0.08 x10*3/uL Normal 0.00-0.70 [facility] Comment on above: Performed By: #### 5 7021-8 ####IRVIN MUNGUIA ([id number])[facility])[address] [place] [address] 61715 Immature granulocytes/100 WBC (Bld) 0.9 % Normal 0.0-0.9 [facility] Comment on above: Result Comment: Debbie ture Granulocyte Count (IG) includes promyelocytes, myelocytes and metamyelocytes but does not include bands. Percent differential counts (%) should be interpreted in the context of the absolute cell counts (cells/UL). Performed By: #### 5 7021-8 ####IRVIN MUNGUIA ([id number])[facility])[address] [place] [address] 25889 Lymphocytes (Bld) [#/Vol] 2.44 x10*3/uL Normal 1.20-4.80 [facility] Comment on above: Performed By: #### 7021-8 ####IRVIN MUNGUIA ([id number])[facility])[address] [place] [address] 81107 Lymphocytes/100 WBC (Bld) 26.3 % Normal 13.0-44.0 [facility] Comment on above: Performed By: #### 5 7021-8 ####IRVIN MUNGUIA ([id number])[facility])[address] [place] [address] 72903 MCH (RBC) [Entitic mass] 26.9 pg Normal 26.0-34.0 [facility] Comment on above: Performed By: #### 5 7021-8 ####IRVIN MUNGUIA ([id number])[facility])[address] [place] [address] 22181 MCHC (RBC) [Mass/Vol] 30.6 g/dL Low 32.0-36.0 [facility] Comment on above: Performed By: #### 5 7021-8 ####IRVIN MUNGUIA ([id number])[facility])[address] [place] [address] 01677 MCV (RBC) [Entitic vol] 88 fL Normal 80-100 [facility] Comment on above: Performed By: #### 5 7021-8 ####IRVIN MUNGUIA ([id number])[facility])[address] [place] [address] 93176 Monocytes (Bld) [#/Vol] 0.54 x10*3/uL Normal 0.10-1.00 [facility] Comment on above: Performed By: #### 5 7021-8 ####IRVIN MUNGUIA ([id number])[facility])[address] [place] [address] 39298 Monocytes/100 WBC (Bld) 5.8 % Normal 2.0-10.0 [facility] Comment on above: Performed By: #### 5 7021-8 ####IRVIN MUNGUIA ([id number])[facility])[address] [place] [address] 11196 Neutrophils (Bld) [#/Vol] 6.04 x10*3/uL Normal 1.20-7.70 [facility] Comment on above: Result Comment: Perc ent differential counts (%) should be interpreted in the context of the absolute cell counts (cells/uL). Performed By: #### 5 7021-8 ####IRVIN MUNGUIA ([id number])[facility])[address] [place] [address] 99855 Neutrophils/100 WBC (Bld) 65.1 % Normal 40.0-80.0 [facility] Comment on above: Performed By: #### 5 7021-8 ####IRVIN MUNGUIA ([id number])[facility])[address] [place] [address] 38751 Nucleated RBC/100 WBC (Bld) [Ratio] 0.0 /100 WBCs Normal 0.0-0.0 [facility] Comment on above: Performed By: #### 5 7021-8 ####IRVIN MUNGUIA ([id number])[facility])[address] [place] [address] 69630 Platelets (Bld) [#/Vol] 315 x10*3/uL Normal 150-450 [facility] Comment on above: Performed By: #### 5 7021-8 ####IRVIN MUNGUIA ([id number])[facility])[address] [place] [address] 17072 RBC (Bld) [#/Vol] 4.09 x10*6/uL Normal 4.00-5.20 [facility] Comment on above: Performed By: #### 5 7021-8 ####IRVIN MUNGUIA ([id number])[facility])[address] [place] [address] WBC (Bld) [#/Vol] 9.3 x10*3/uL Normal 4.4-11.3 [facility] Comment on above: Performed By: #### 5 7021-8 ####IRVIN MUNGUIA ([id number])[facility])[address] [place] [address] CT ABDOMEN PELVIS W IV CONTR Reny 03-11-2024 CT ABDOMEN PELVIS W IV CONTRAST Normal [facility] Coagulation surface inducedo n 03-11-2024 aPTT Coag (PPP) [Time] 51 s High 27-38 [facility] Comment on above: Order Comment: The A PTT is no longer used for monitoring Unfractionated Heparin Therapy. For monitoring Heparin Therapy, use the Heparin Assay. Performed By: #### 1 4979-9 ####IRVIN MUNGUIA ([id number])[facility])[address] [place] [address] Coagulation tissue factor in ducedon 03-11-2024 PT Coag (PPP) [Time] 50.8 s High 9.8-12.8 [facility] Comment on above: Performed By: #### 5 902-2 ####IRVIN MUNGUIA ([id number])[facility])[address] [place] [address] Hepatic function 2000 panelo n 03-11-2024 Albumin BCP dye [Mass/Vol] 3.9 g/dL Normal 3.4-5.0 [facility] Comment on above: Performed By: #### 2 4325-3 ####IRVIN MUNGUIA ([id number])[facility])[address] [place], [place] [address] ALP [Catalytic activity/Vol] 152 U/L High 33-110 [facility] Comment on above: Performed By: #### 2 4325-3 ####IRVIN MUNGUIA ([id number])[facility])[address] [place] [address] ALT With P-5'-P [Catalytic activity/Vol] 70 U/L High 7-45 [facility] Comment on above: Result Comment: Evelyn ents treated with Sulfasalazine may generate falsely decreased results for ALT. Performed By: #### 2 4325-3 ####IRVIN MUNGUIA ([id number])[facility] ([facility])[address] [place] [id number] AST With P-5'-P [Catalytic activity/Vol] 54 U/L High 9-39 [facility] Comment on above: Performed By: #### 2 4325-3 ####IRVIN MUNGUIA ([id number])[facility] ([facility])[address] [place] [id number] Bilirubin [Mass/Vol] 0.3 mg/dL Normal 0.0-1.2 [facility] Comment on above: Performed By: #### 2 4324-3 ####IRVIN MUNGUIA ([id number])[facility] ([facility])[address] [place] [address] Bilirubin.direct [Mass/Vol] 0.1 mg/dL Normal 0.0-0.3 [facility] Comment on above: Performed By: #### 2 5-3 ####IRVIN MUNGUIA ([id number])[facility] ([facility])[address] [place] [id number] Protein [Mass/Vol] 7.4 g/dL Normal 6.4-8.2 [facility] Comment on above: Performed By: #### 2 5-3 ####IRVIN MUNGUIA ([id number])[facility] ([facility])[address] [place] [id number] PT Coag (PPP) [Time]on 03-11 INR Coag (PPP) [Relative time] 4.3 High 0.9-1.1 [facility] Comment on above: Performed By: #### 5 902-2 ####IRVIN MUNGUIA ([id number])[facility] ([facility])[address] [place] [address] 77972 Triacylglycerol lipaseon Lipase [Catalytic activity/Vol] 32 U/L Normal 9-82 [facility] Comment on above: Order Comment: Venip uncture immediately after or during the administration of Metamizole may lead to falsely low results. Testing should be performed immediately prior to Metamizole dosing. Performed By: #### 3 040-3 ####IRVIN MUNGUIA ([id number])[facility] ([facility])[address] [place] [address] APTTon 03-05-2024 aPTT Coag (PPP) [Time] 49 s High [facility] CBC panel Auto (Bld)on 03-05 Erythrocyte distribution width (RBC) [Ratio] 14.0 % 11.5 - 14.5 % [facility] Hematocrit (Bld) [Volume fraction] 38.9 % 36.0 - 46.0 % [facility] Hemoglobin (Bld) [Mass/Vol] 12.1 g/dL 12.0 - 16.0 g/dL [facility] Interpretation and review of laboratory results Abnormal [facility] MCH (RBC) [Entitic mass] 27.3 pg 26.0 - 34.0 pg [facility] MCHC (RBC) [Mass/Vol] 31.1 g/dL Low 32.0 - 36.0 g/dL [facility] MCV (RBC) [Entitic vol] 88 fL 80 - 100 fL [facility] Nucleated RBC/100 WBC (Bld) [Ratio] 0.0 % [facility] Platelets (Bld) [#/Vol] 310 10*3/uL [facility] RBC (Bld) [#/Vol] 4.43 10*6/uL [facility] WBC (Bld) [#/Vol] 12.2 10*3/uL [facility] Erythrocyte distribution width (RBC) [Ratio] 14.0 % Normal 11.5-14.5 [facility] Comment on above: Performed By: #### 5 8410-2 ####IRVIN MUNGUIA ([id number])[facility] [place] [address] Hematocrit (Bld) [Volume fraction] 38.9 % Normal 36.0-46.0 [facility] Comment on above: Performed By: #### 5 8410-2 ####IRVIN MUNGUIA ([id number])[facility])[address] [place] [address] 98590 Hemoglobin (Bld) [Mass/Vol] 12.1 g/dL Normal 12.0-16.0 [facility] Comment on above: Performed By: #### 5 8410-2 ####IRVIN MUNGUIA ([id number])[facility])[address] [place] [address] 63406 MCH (RBC) [Entitic mass] 27.3 pg Normal 26.0-34.0 [facility] Comment on above: Performed By: #### 5 8410-2 ####IRVIN MUNGUIA ([id number])[facility])[address] [place] [address] 42599 MCHC (RBC) [Mass/Vol] 31.1 g/dL Low 32.0-36.0 [facility] Comment on above: Performed By: #### 5 8410-2 ####IRVIN MUNGUIA ([id number])[facility])[address] [place] [address] 41649 MCV (RBC) [Entitic vol] 88 fL Normal 80-100 [facility] Comment on above: Performed By: #### 5 8410-2 ####IRVIN MUNGUIA ([id number])[facility])[address] [place] [address] 39310 Nucleated RBC/100 WBC (Bld) [Ratio] 0.0 /100 WBCs Normal 0.0-0.0 [facility] Comment on above: Performed By: #### 5 8410-2 ####IRVIN MUNGUIA ([id number])[facility])[address] [place] [address] 90076 Platelets (Bld) [#/Vol] 310 x10*3/uL Normal 150-450 [facility] Comment on above: Performed By: #### 5 8410-2 ####IRIVN MUNGUIA ([id number])[facility])[address] [place], [place] [address] RBC (Bld) [#/Vol] 4.43 x10*6/uL Normal 4.00-5.20 [facility] Comment on above: Performed By: #### 5 8410-2 ####IRVIN MUNGUIA ([id number])[facility])[address] [place] [address] 40660 WBC (Bld) [#/Vol] 12.2 x10*3/uL High 4.4-11.3 [facility] Comment on above: Performed By: #### 5 8410-2 ####IRVIN MUNGUIA ([id number])[facility])[address] [place] [address] Coagulation surface inducedo n 03-05-2024 aPTT Coag (PPP) [Time] 49 s High 27-38 [facility] Comment on above: Order Comment: The A PTT is no longer used for monitoring Unfractionated Heparin Therapy. For monitoring Heparin Therapy, use the Heparin Assay. Performed By: #### 1 4979-9 ####IRVIN MUNGUIA ([id number])[facility] ([facility])[address] [place], [place] [address] Coagulation tissue factor in ducedon 03-05-2024 PT Coag (PPP) [Time] 45.6 s High 9.8-12.8 [facility] Comment on above: Performed By: #### 5 902-2 ####IRVIN MUNGUIA ([id number])[facility])[address] [place] [address] 61986 Comprehensive metabolic 2000 panelon 03-05-2024 Albumin BCP dye [Mass/Vol] 4.0 g/dL 3.4 - 5.0 g/dL [facility] ALP [Catalytic activity/Vol] 187 U/L High 33 - 110 U/L [facility] ALT With P-5'-P [Catalytic activity/Vol] 39 U/L 7 - 45 U/L [facility] Comment on above: Patients treated wit h Sulfasalazine may generate falsely decreased results for ALT. Anion gap [Moles/Vol] 16 mmol/L 10 - 2 0 mmol/L [facility] AST With P-5'-P [Catalytic activity/Vol] 41 U/L High 9 - 39 U/L [facility] Bilirubin [Mass/Vol] 0.2 mg/dL 0.0 - 1 .2 mg/dL [facility] Calcium [Mass/Vol] 8.8 mg/dL 8.6 - 10. 3 mg/dL [facility] Chloride [Moles/Vol] 99 mmol/L 98 - 10 7 mmol/L [facility] CO2 [Moles/Vol] 24 mmol/L 21 - 32 mmol/L [facility] Creatinine [Mass/Vol] 0.72 mg/dL 0.50 - 1.05 mg/dL [facility] eGFR - PINF [facility] Comment on above: Calculations of estuardo mated GFR are performed using the 2020 CKD-EPI Study Refit equation without the race variable for the IDMS-Traceable creatinine methods. https://jasn.asnjournals.org/content/early//ASN.517933 1556 Glucose [Mass/Vol] 215 mg/dL High 74 - 99 mg/dL [facility] Interpretation and review of laboratory results Abnormal [facility] Potassium [Moles/Vol] 4.3 mmol/L 3.5 - 5.3 mmol/L [facility] Protein [Mass/Vol] 7.8 g/dL 6.4 - 8.2 g/dL [facility] Sodium [Moles/Vol] 135 mmol/L Low 136 - 145 mmol/L [facility] Urea nitrogen [Mass/Vol] 12 mg/dL 6 - 23 mg/dL [facility] Albumin BCP dye [Mass/Vol] 4.0 g/dL Normal 3.4-5.0 [facility] Comment on above: Performed By: #### 2 4323-8 ####BRYAN EZRA ([id number])[facility] ([facility])[address] [place] [address] ALP [Catalytic activity/Vol] 187 U/L High 33-110 [facility] Comment on above: Performed By: #### 2 4323-8 ####IRVIN MUNGUIA ([id number])[facility] [place] [address] ALT With P-5'-P [Catalytic activity/Vol] 39 U/L Normal 7-45 [facility] Comment on above: Result Comment: Evelyn ents treated with Sulfasalazine may generate falsely decreased results for ALT. Performed By: #### 2 4323-8 ####IRVIN MUNGUIA ([id number])[facility])[address] [place] [address] Anion gap [Moles/Vol] 16 mmol/L Normal 10-20 [facility] Comment on above: Performed By: #### 2 4322-8 ####IRVIN MUNGUIA ([id number])[facility])[address] [place] [address] 43081 AST With P-5'-P [Catalytic activity/Vol] 41 U/L High 9-39 [facility] Comment on above: Performed By: #### 2 432-8 ####IRVIN MUNGUIA ([id number])[facility])[address] [place] [address] 29422 Bilirubin [Mass/Vol] 0.2 mg/dL Normal 0.0-1.2 [facility] Comment on above: Performed By: #### 2 432-8 ####IRVIN MUNGUIA ([id number])[facility])[address] [place] [address] 96164 Calcium [Mass/Vol] 8.8 mg/dL Normal 8.6-10.3 [facility] Comment on above: Performed By: #### 2 432-8 ####IRVIN MUNGUIA ([id number])[facility])[address] [place] [address] 79842 Chloride [Moles/Vol] 99 mmol/L Normal 98-107 [facility] Comment on above: Performed By: #### 2 4323-8 ####IRVIN MUNGUIA ([id number])[facility] [place] [address] CO2 [Moles/Vol] 24 mmol/L Normal 21-32 [facility] Comment on above: Performed By: #### 2 4323-8 ####IRVIN MUNGUIA ([id number])[facility])[address] [place] [address] 15142 Creatinine [Mass/Vol] 0.72 mg/dL Normal 0.50-1.05 [facility] Comment on above: Performed By: #### 2 4323-8 ####IRVIN MUNGUIA ([id number])[facility])[address] [place] [address] 33528 GFR/1.73 sq M.predicted MDRD (S/P/Bld) [Vol rate/Area] mL/min/{1.73_m2} Normal >60 [facility] Comment on above: Result Comment: Calc ulations of estimated GFR are performed using the 2020 CKD-EPI Study Refit equation without the race variable for the IDMS-Traceable creatinine methods.https://jasn.asnjournals.org/content// N.6672562073 Performed By: #### 2 4323-8 ####IRVIN MUNGUIA ([id number])[facility])[address] [place] [address] 19483 Glucose [Mass/Vol] 215 mg/dL High 74-99 [facility] Comment on above: Performed By: #### 2 4323-8 ####IRVIN MUNGUIA ([id number])[facility])[address] [place] [address] 41231 Potassium [Moles/Vol] 4.3 mmol/L Normal 3.5-5.3 [facility] Comment on above: Performed By: #### 2 4323-8 ####IRVIN MUNGUIA ([id number])[facility])[address] [place] [address] 82191 Protein [Mass/Vol] 7.8 g/dL Normal 6.4-8.2 [facility] Comment on above: Performed By: #### 2 4323-8 ####IRVIN MUNGUIA ([id number])[facility])[address] [place] [address] 23324 Sodium [Moles/Vol] 135 mmol/L Low 136-145 [facility] Comment on above: Performed By: #### 2 4323-8 ####IRVIN MUNGUIA ([id number])[facility])[address] [place] [address] 50204 Urea nitrogen [Mass/Vol] 12 mg/dL Normal - [facility] Comment on above: Performed By: #### 2 4323-8 ####IRVIN MUNGUIA ([id number])[facility])[address] [place] [address] 24932 ECG 12-LEADon 03-05-2024 ECG 12-LEAD Ventricular Rate 115 Atrial Rate 115 P-R Interval 136 QRS Duration 80 Q-T Interval 328 QTC Calculation(Bazett) 453 P [place] 42 R [place] 42 T [place] 48 QRS Count 19 Q Onset 222 P Onset 154 P Offset 207 T Offset 386 QTC Fredericia 407 Diagnosis Sinus tachycardia Otherwise normal ECG When compared with ECG of 28-FEB-2024 08:09, No significant change was found See ED provider note for full interpretation and clinical correlation Confirmed by Hermelinda Beltran ([id number]) on 03/08/2024 6:50:38 PM Normal [facility] Lipaseon 03-05-2024 Lipase [Catalytic activity/Vol] 23 U/L 9 - 82 U/L [facility] Lipase [Catalytic activity/V ol]on 03-05-2024 Interpretation and review of laboratory results Normal [facility] Venipuncture immediately after or during the administration of Metamizole may lead to falsely low results. Testing should be performed immediately prior to Metamizole dosing. [facility] No Panel Informationon 03-05 Interpretation and review of laboratory results Abnormal [facility] PT Coag (PPP) [Time]on 03-05 INR Coag (PPP) [Relative time] 3.9 {INR} High 0.9 - 1.1 [facility] INR Coag (PPP) [Relative time] 3.9 High 0.9-1.1 [facility] Comment on above: Performed By: #### 5 902-2 ####IRVIN MUNGUIA ([id number])[facility])[address] [place] [address] 05071 Protime-INRon 03-05-2024 PT Coag (PPP) [Time] 45.6 s High [facility] Triacylglycerol lipaseon Lipase [Catalytic activity/Vol] 23 U/L Normal 9-82 [facility] Comment on above: Order Comment: Venip uncture immediately after or during the administration of Metamizole may lead to falsely low results. Testing should be performed immediately prior to Metamizole dosing. Performed By: #### 3 040-3 ####IRVIN MUNGUAI ([id number])[facility])[address] [place] [address] 95729 aPTT Coag (PPP) [Time]on The APTT is no longe r used for monitoring Unfractionated Heparin Therapy. For monitoring Heparin Therapy, use the Heparin Assay. [facility] Basic metabolic 2000 panelon 03-02-2024 Anion gap [Moles/Vol] 14 mmol/L 10 - 2 0 mmol/L [facility] Calcium [Mass/Vol] 8.8 mg/dL 8.6 - 10. 3 mg/dL [facility] Chloride [Moles/Vol] 101 mmol/L 98 - 10 7 mmol/L [facility] CO2 [Moles/Vol] 24 mmol/L 21 - 32 mmol/L [facility] Creatinine [Mass/Vol] 0.65 mg/dL 0.50 - 1.05 mg/dL [facility] eGFR - PINF [facility] Comment on above: Calculations of estuardo mated GFR are performed using the 2020 CKD-EPI Study Refit equation without the race variable for the IDMS-Traceable creatinine methods. https://jasn.asnjournals.org/content/early/ASN.743143 4687 Glucose [Mass/Vol] 158 mg/dL High 74 - 99 mg/dL [facility] Interpretation and review of laboratory results Abnormal [facility] Potassium [Moles/Vol] 3.8 mmol/L 3.5 - 5.3 mmol/L [facility] Sodium [Moles/Vol] 135 mmol/L Low 136 - 145 mmol/L [facility] Urea nitrogen [Mass/Vol] 9 mg/dL 6 - 23 mg/dL [facility] Anion gap [Moles/Vol] 14 mmol/L Normal 10-20 [facility] Comment on above: Performed By: #### 2 4321-2 ####IRVIN MUNGUIA ([id number])[facility])[address] [place] [address] 88106 Calcium [Mass/Vol] 8.8 mg/dL Normal 8.6-10.3 [facility] Comment on above: Performed By: #### 2 4321-2 ####IRVIN MUNGUIA ([id number])[facility])[address] [place] [address] 49988 Chloride [Moles/Vol] 101 mmol/L Normal 98-107 [facility] Comment on above: Performed By: #### 2 4321-2 ####IRVIN MUNGUIA ([id number])[facility])[address] [place] [address] 23777 CO2 [Moles/Vol] 24 mmol/L Normal 21-32 [facility] Comment on above: Performed By: #### 2 4321-2 ####IRVIN MUNGUIA ([id number])[facility])[address] [place] [address] 85218 Creatinine [Mass/Vol] 0.65 mg/dL Normal 0.50-1.05 [facility] Comment on above: Performed By: #### 2 4321-2 ####IRVIN MUNGUIA ([id number])[facility])[address] [place] [address] 07548 GFR/1.73 sq M.predicted MDRD (S/P/Bld) [Vol rate/Area] mL/min/{1.73_m2} Normal >60 [facility] Comment on above: Result Comment: Calc ulations of estimated GFR are performed using the 2020 CKD-EPI Study Refit equation without the race variable for the IDMS-Traceable creatinine methods.https://jasn.asnjournals.org/content/early/ N.0688854616 Performed By: #### 2 4321-2 ####IRVIN MUNGUIA ([id number])[facility])[address] [place] [address] 36652 Glucose [Mass/Vol] 158 mg/dL High 74-99 [facility] Comment on above: Performed By: #### 2 4321-2 ####IRVIN MUNGUIA ([id number])[facility])[address] [place] [address] 54698 Potassium [Moles/Vol] 3.8 mmol/L Normal 3.5-5.3 [facility] Comment on above: Performed By: #### 2 4321-2 ####IRVIN MUNGUIA ([id number])[facility])[address] [place] [address] 96717 Sodium [Moles/Vol] 135 mmol/L Low 136-145 [facility] Comment on above: Performed By: #### 2 4321-2 ####IRVIN MUNGUIA ([id number])[facility])[address] [place] [address] 20249 Urea nitrogen [Mass/Vol] 9 mg/dL Normal 6-23 [facility] Comment on above: Performed By: #### 2 4321-2 ####IRVIN MUNGUIA ([id number])[facility])[address] [place] [address] 69561 CBC panel Auto (Bld)on 03-02 Erythrocyte distribution width (RBC) [Ratio] 14.0 % 11.5 - 14.5 % [facility] Hematocrit (Bld) [Volume fraction] 34.3 % Low 36.0 - 46.0 % [facility] Hemoglobin (Bld) [Mass/Vol] 10.6 g/dL Low 12.0 - 16.0 g/dL [facility] Interpretation and review of laboratory results Abnormal [facility] MCH (RBC) [Entitic mass] 27.5 pg 26.0 - 34.0 pg [facility] MCHC (RBC) [Mass/Vol] 30.9 g/dL Low 32.0 - 36.0 g/dL [facility] MCV (RBC) [Entitic vol] 89 fL 80 - 100 fL [facility] Nucleated RBC/100 WBC (Bld) [Ratio] 0.0 % [facility] Platelets (Bld) [#/Vol] 290 10*3/uL [facility] RBC (Bld) [#/Vol] 3.86 10*6/uL Low [facility] WBC (Bld) [#/Vol] 7.6 10*3/uL [facility] Erythrocyte distribution width (RBC) [Ratio] 14.0 % Normal 11.5-14.5 [facility] Comment on above: Performed By: #### 5 8410-2 ####IRVIN MUNGUIA ([id number])[facility])[address] [place] [address] 23196 Hematocrit (Bld) [Volume fraction] 34.3 % Low 36.0-46.0 [facility] Comment on above: Performed By: #### 5 8410-2 ####IRVIN MUNGUIA ([id number])[facility])[address] [place] [address] 57861 Hemoglobin (Bld) [Mass/Vol] 10.6 g/dL Low 12.0-16.0 [facility] Comment on above: Performed By: #### 5 8410-2 ####IRVIN MUNGUIA ([id number])[facility])[address] [place] [address] 93491 MCH (RBC) [Entitic mass] 27.5 pg Normal 26.0-34.0 [facility] Comment on above: Performed By: #### 5 8410-2 ####IRVIN MUNGUIA ([id number])[facility])[address] [place] [address] MCHC (RBC) [Mass/Vol] 30.9 g/dL Low 32.0-36.0 [facility] Comment on above: Performed By: #### 5 8410-2 ####IRVIN MUNGUIA ([id number])[facility])[address] [place] [address] MCV (RBC) [Entitic vol] 89 fL Normal 80-100 [facility] Comment on above: Performed By: #### 5 8410-2 ####IRVIN MUNGUIA ([id number])[facility])[address] [place] [address] Nucleated RBC/100 WBC (Bld) [Ratio] 0.0 /100 WBCs Normal 0.0-0.0 [facility] Comment on above: Performed By: #### 5 8410-2 ####IRVIN MUNGUIA ([id number])[facility])[address] [place] [address] 38107 Platelets (Bld) [#/Vol] 290 x10*3/uL Normal 150-450 [facility] Comment on above: Performed By: #### 5 8410-2 ####IRVIN MUNGUIA ([id number])[facility])[address] [place] [address] 39911 RBC (Bld) [#/Vol] 3.86 x10*6/uL Low 4.00-5.20 [facility] Comment on above: Performed By: #### 5 8410-2 ####IRVIN MUNGUIA ([id number])[facility])[address] [place] [address] 28016 WBC (Bld) [#/Vol] 7.6 x10*3/uL Normal 4.4-11.3 [facility] Comment on above: Performed By: #### 5 8410-2 ####IRVIN MUNGUIA ([id number])[facility])[address] [place], [place] [address] Coagulation tissue factor in ducedon 03-02-2024 PT Coag (PPP) [Time] 37.3 s High 9.8-12.8 [facility] Comment on above: Performed By: #### 5 902-2 ####IRVIN MUNGUIA ([id number])[facility])[address] [place], [place] [address] Glucose Test strip manual (B ld) [Mass/Vol]on 03-02-2024 Glucose [Mass/Vol] 204 mg/dL High 74 - 99 mg/dL [facility] Interpretation and review of laboratory results Abnormal [facility] Glucose [Mass/Vol] 204 mg/dL High 74-99 [facility] Comment on above: Performed By: #### 2 341-6 ####IRVIN MUNGUIA ([id number])[facility])[address] [place] [address] Glucose [Mass/Vol] 169 mg/dL High 74 - 99 mg/dL [facility] Interpretation and review of laboratory results Abnormal [facility] Glucose [Mass/Vol] 169 mg/dL High 74-99 [facility] Comment on above: Performed By: #### 2 341-6 ####IRVIN MUNGUIA ([id number])[facility])[address] [place] [address] Glucose [Mass/Vol] 162 mg/dL High 74 - 99 mg/dL [facility] Interpretation and review of laboratory results Abnormal [facility] Glucose [Mass/Vol] 162 mg/dL High 74-99 [facility] Comment on above: Performed By: #### 2 341-6 ####IRVIN MUNGUIA ([id number])[facility])[address] [place] [address] 36448 Heparin Assayon 03-02-2024 Heparin unfractionated Chromogenic method Qn (PPP) 0.4 See Comment Below for Therapeutic Ranges IU/mL [facility] Heparin unfractionated Chrom ogenic method Qn (PPP)on 03-02-2024 Interpretation and review of laboratory results Normal [facility] The therapeutic reference range for UFH may be either 0.3-0.6 IU/mL or 0.3-0.7 IU/mL based on the clinical setting for anticoagulant therapy and the associated nomogram used. For Heparin dosing guidelines based on clinical scenario and Heparin Assay results, please refer to local Pharmacy and the [facility] Guidelines for Anticoagulation Therapy available on the [facility] intranet at: [email or web address] [facility] Heparin.unfractionatedon Heparin unfractionated Chromogenic method Qn (PPP) 0.4 IU/mL Normal See Comment Below for Therapeutic Ranges [facility] Comment on above: Order Comment: The t herapeutic reference range for UFH may be either 0.3-0.6 IU/mL or 0.3-0.7 IU/mL based on the clinical setting for anticoagulant therapy and the associated nomogram used. For Heparin dosing guidelines based on clinical scenario and Heparin Assay results, please refer to local Pharmacy and the [facility] Guidelines for Anticoagulation Therapy available on the [facility] intranet at: [email or web address] Performed By: #### 3 274-8 ####IRVIN MUNGUIA ([id number])[facility])[address] [place] [address] No Panel Informationon 03-02 [facility] PT Coag (PPP) [Time]on 03-02 INR Coag (PPP) [Relative time] 3.2 {INR} High 0.9 - 1.1 [facility] Interpretation and review of laboratory results Abnormal [facility] INR Coag (PPP) [Relative time] 3.2 High 0.9-1.1 [facility] Comment on above: Performed By: #### 5 902-2 ####IRVIN MUNGUIA ([id number])[facility])[address] [place] [address] Protime-INRon 03-02-2024 PT Coag (PPP) [Time] 37.3 s [facility] XR Abdomen Single viewon Nonobstructive bowel gas pattern. MACRO: None Signed by: Ulises Dowd 03/02/2024 11:33 AM Dictation workstation: [id number] MMODAL Interpreted By: Ulises Dowd, STUDY: XR ABDOMEN 1 VIEW; 03/01/2024 10:43 pm INDICATION: Signs/Symptoms:pain. COMPARISON: 01/28/2024 ACCESSION NUMBER(S): [id number] ORDERING CLINICIAN: CHACHO RIBEIRO FINDINGS: 2 supine AP radiographs of the abdomen were obtained. There is a nonobstructive bowel gas pattern present. Free intraperitoneal air and air-fluid levels cannot be excluded without upright or decubitus images. MMODAL Ulises Dowd MD - 03/02/2024 Interpreted By: Ulises Dowd, STUDY: XR ABDOMEN 1 VIEW; 03/01/2024 10:43 pm INDICATION: Signs/Symptoms:pain. COMPARISON: 01/28/2024 ACCESSION NUMBER(S): [id number] ORDERING CLINICIAN: CHACHO RIBEIRO FINDINGS: 2 supine AP radiographs of the abdomen were obtained. There is a nonobstructive bowel gas pattern present. Free intraperitoneal air and air-fluid levels cannot be excluded without upright or decubitus images. IMPRESSION: Nonobstructive bowel gas pattern. MACRO: None Signed by: Ulises Dowd 03/02/2024 11:33 AM Dictation workstation: [id number] [facility] Work Phone: XR Abdomen Single viewOrdere d By: Ulises Dowd on 03-02-2024 [facility] Work Phone: Basic metabolic 2000 panelon 03-01-2024 Anion gap [Moles/Vol] 14 mmol/L 10 - 2 0 mmol/L [facility] Calcium [Mass/Vol] 9.0 mg/dL 8.6 - 10. 3 mg/dL [facility] Chloride [Moles/Vol] 100 mmol/L 98 - 10 7 mmol/L [facility] CO2 [Moles/Vol] 25 mmol/L 21 - 32 mmol/L [facility] Creatinine [Mass/Vol] 0.64 mg/dL 0.50 - 1.05 mg/dL [facility] eGFR - PINF [facility] Comment on above: Calculations of estuardo mated GFR are performed using the 2020 CKD-EPI Study Refit equation without the race variable for the IDMS-Traceable creatinine methods. https://jasn.asnjournals.org/content//ASN.833055 9620 Glucose [Mass/Vol] 136 mg/dL High 74 - 99 mg/dL [facility] Interpretation and review of laboratory results Abnormal [facility] Potassium [Moles/Vol] 3.8 mmol/L 3.5 - 5.3 mmol/L [facility] Comment on above: MILD HEMOLYSIS DETEC DEYANIRA. The result may be falsely elevated due to hemolysis or other interferents. Clinical correlation is recommended. Repeat testing may be considered. Sodium [Moles/Vol] 135 mmol/L Low 136 - 145 mmol/L [facility] Urea nitrogen [Mass/Vol] 8 mg/dL 6 - 23 mg/dL [facility] Anion gap [Moles/Vol] 14 mmol/L Normal 10-20 [facility] Comment on above: Performed By: #### 2 4321-2 ####IRVIN MUNGUIA ([id number])[facility] [place] [address] Calcium [Mass/Vol] 9.0 mg/dL Normal 8.6-10.3 [facility] Comment on above: Performed By: #### 2 4321-2 ####IRVIN MUNGUIA ([id number])[facility] [place] [address] Chloride [Moles/Vol] 100 mmol/L Normal 98-107 [facility] Comment on above: Performed By: #### 2 4321-2 ####IRVIN MUNGUIA ([id number])[facility])[address] [place] [address] CO2 [Moles/Vol] 25 mmol/L Normal 21-32 [facility] Comment on above: Performed By: #### 2 4321-2 ####IRVIN MUNGUIA ([id number])[facility])[address] [place] [address] Creatinine [Mass/Vol] 0.64 mg/dL Normal 0.50-1.05 [facility] Comment on above: Performed By: #### 2 432-2 ####IRVIN MUNGUIA ([id number])[facility])[address] [place] [address]64 GFR/1.73 sq M.predicted MDRD (S/P/Bld) [Vol rate/Area] mL/min/{1.73_m2} Normal >60 [facility] Comment on above: Result Comment: Calc ulations of estimated GFR are performed using the 2020 CKD-EPI Study Refit equation without the race variable for the IDMS-Traceable creatinine methods.https://jasn.asnjournals.org/content// N.4313063412 Performed By: #### 2 432-2 ####IRVIN MUNGUIA ([id number])[facility])[address] [place] [address] 20695 Glucose [Mass/Vol] 136 mg/dL High 74-99 [facility] Comment on above: Performed By: #### 2 4320-2 ####IRVIN MUNGUIA ([id number])[facility])[address] [place] [address]97 Potassium [Moles/Vol] 3.8 mmol/L Normal 3.5-5.3 [facility] Comment on above: Result Comment: MILD HEMOLYSIS DETECTED. The result may be falsely elevated due to hemolysis or other interferents. Clinical correlation is recommended. Repeat testing may be considered. Performed By: #### 2 4321-2 ####IRVIN MUNGUIA ([id number])[facility] [place] [address] Sodium [Moles/Vol] 135 mmol/L Low 136-145 [facility] Comment on above: Performed By: #### 2 4321-2 ####IRVIN MUNGUIA ([id number])[facility])[address] [place] [address] 18966 Urea nitrogen [Mass/Vol] 8 mg/dL Normal 6-23 [facility] Comment on above: Performed By: #### 2 432-2 ####IRVIN MUNGUIA ([id number])[facility])[address] [place], [place] [address] CBC panel Auto (Bld)on 03-01 Erythrocyte distribution width (RBC) [Ratio] 14.0 % 11.5 - 14.5 % [facility] Hematocrit (Bld) [Volume fraction] 35.6 % Low 36.0 - 46.0 % [facility] Hemoglobin (Bld) [Mass/Vol] 10.8 g/dL Low 12.0 - 16.0 g/dL [facility] Interpretation and review of laboratory results Abnormal [facility] MCH (RBC) [Entitic mass] 26.9 pg 26.0 - 34.0 pg [facility] MCHC (RBC) [Mass/Vol] 30.3 g/dL Low 32.0 - 36.0 g/dL [facility] MCV (RBC) [Entitic vol] 89 fL 80 - 100 fL [facility] Nucleated RBC/100 WBC (Bld) [Ratio] 0.0 % [facility] Platelets (Bld) [#/Vol] 339 10*3/uL [facility] RBC (Bld) [#/Vol] 4.01 10*6/uL [facility] WBC (Bld) [#/Vol] 5.6 10*3/uL [facility] Erythrocyte distribution width (RBC) [Ratio] 14.0 % Normal 11.5-14.5 [facility] Comment on above: Performed By: #### 5 1910-2 ####IRVIN MUNGUIA ([id number])[facility])[address] [place], [place] [address] Hematocrit (Bld) [Volume fraction] 35.6 % Low 36.0-46.0 [facility] Comment on above: Performed By: #### 5 8410-2 ####IRVIN MUNGUIA ([id number])[facility])[address] [place], [place] [address] Hemoglobin (Bld) [Mass/Vol] 10.8 g/dL Low 12.0-16.0 [facility] Comment on above: Performed By: #### 5 8410-2 ####IRVIN MUNGUIA ([id number])[facility])[address] [place] [address] MCH (RBC) [Entitic mass] 26.9 pg Normal 26.0-34.0 [facility] Comment on above: Performed By: #### 5 8410-2 ####IRVIN MUNGUIA ([id number])[facility])[address] [place] [address] 51699 MCHC (RBC) [Mass/Vol] 30.3 g/dL Low 32.0-36.0 [facility] Comment on above: Performed By: #### 5 8410-2 ####IRVIN MUNGUIA ([id number])[facility])[address] [place] [address] 19952 MCV (RBC) [Entitic vol] 89 fL Normal 80-100 [facility] Comment on above: Performed By: #### 5 8410-2 ####IRVIN MUNGUIA ([id number])[facility])[address] [place] [address] 08016 Nucleated RBC/100 WBC (Bld) [Ratio] 0.0 /100 WBCs Normal 0.0-0.0 [facility] Comment on above: Performed By: #### 5 8410-2 ####IRVIN MUNGUIA ([id number])[facility])[address] [place], [place] [address] Platelets (Bld) [#/Vol] 339 x10*3/uL Normal 150-450 [facility] Comment on above: Performed By: #### 5 8410-2 ####IRVIN MUNGUIA ([id number])[facility])[address] [place] [address] RBC (Bld) [#/Vol] 4.01 x10*6/uL Normal 4.00-5.20 [facility] Comment on above: Performed By: #### 5 8410-2 ####IRVIN MUNGUIA ([id number])[facility])[address] [place] [address] WBC (Bld) [#/Vol] 5.6 x10*3/uL Normal 4.4-11.3 [facility] Comment on above: Performed By: #### 5 8410-2 ####IRVIN MUNGUIA ([id number])[facility])[address] [place] [address] Erythrocyte distribution width (RBC) [Ratio] 14.2 % 11.5 - 14.5 % [facility] Hematocrit (Bld) [Volume fraction] 34.9 % Low 36.0 - 46.0 % [facility] Hemoglobin (Bld) [Mass/Vol] 10.7 g/dL Low 12.0 - 16.0 g/dL [facility] Interpretation and review of laboratory results Abnormal [facility] MCH (RBC) [Entitic mass] 27.6 pg 26.0 - 34.0 pg [facility] MCHC (RBC) [Mass/Vol] 30.7 g/dL Low 32.0 - 36.0 g/dL [facility] MCV (RBC) [Entitic vol] 90 fL 80 - 100 fL [facility] Nucleated RBC/100 WBC (Bld) [Ratio] 0.0 % [facility] Platelets (Bld) [#/Vol] 321 10*3/uL [facility] RBC (Bld) [#/Vol] 3.87 10*6/uL Low [facility] WBC (Bld) [#/Vol] 6.0 10*3/uL [facility] Erythrocyte distribution width (RBC) [Ratio] 14.2 % Normal 11.5-14.5 [facility] Comment on above: Performed By: #### 5 8410-2 ####IRVIN MUNGUIA ([id number])[facility])[address] [place] [address] 34390 Hematocrit (Bld) [Volume fraction] 34.9 % Low 36.0-46.0 [facility] Comment on above: Performed By: #### 5 8410-2 ####IRVIN MUNGUIA ([id number])[facility])[address] [place] [address]6058 Hemoglobin (Bld) [Mass/Vol] 10.7 g/dL Low 12.0-16.0 [facility] Comment on above: Performed By: #### 5 8410-2 ####IRVIN MUNGUIA ([id number])[facility])[address] [place] [address] 94800 MCH (RBC) [Entitic mass] 27.6 pg Normal 26.0-34.0 [facility] Comment on above: Performed By: #### 5 8410-2 ####IRVIN MUNGUIA ([id number])[facility])[address] [place] [address] 98954 MCHC (RBC) [Mass/Vol] 30.7 g/dL Low 32.0-36.0 [facility] Comment on above: Performed By: #### 5 8410-2 ####IRVIN MUNGUIA ([id number])[facility])[address] [place] [address] 52313 MCV (RBC) [Entitic vol] 90 fL Normal 80-100 [facility] Comment on above: Performed By: #### 5 8410-2 ####IRVIN MUNGUIA ([id number])[facility])[address] [place] [address] 58501 Nucleated RBC/100 WBC (Bld) [Ratio] 0.0 /100 WBCs Normal 0.0-0.0 [facility] Comment on above: Performed By: #### 5 8410-2 ####IRVIN MUNGUIA ([id number])[facility])[address] [place] [address] 11859 Platelets (Bld) [#/Vol] 321 x10*3/uL Normal 150-450 [facility] Comment on above: Performed By: #### 5 8410-2 ####IRVIN MUNGUIA ([id number])[facility])[address] [place] [address] 34817 RBC (Bld) [#/Vol] 3.87 x10*6/uL Low 4.00-5.20 [facility] Comment on above: Performed By: #### 5 8410-2 ####IRVIN MUNGUIA ([id number])[facility])[address] [place] [address] 55617 WBC (Bld) [#/Vol] 6.0 x10*3/uL Normal 4.4-11.3 [facility] Comment on above: Performed By: #### 5 8410-2 ####IRVIN MUNGUIA ([id number])[facility])[address] [place] [address] 06738 Coagulation tissue factor in ducedon 03-01-2024 PT Coag (PPP) [Time] 14.9 s High 9.8-12.8 [facility] Comment on above: Performed By: #### 5 902-2 ####IRVIN MUNGUIA ([id number])[facility])[address] [place] [address] 82676 Glucose Test strip manual (B ld) [Mass/Vol]on 03-01-2024 Glucose [Mass/Vol] 185 mg/dL High 74 - 99 mg/dL [facility] Interpretation and review of laboratory results Abnormal [facility] Glucose [Mass/Vol] 185 mg/dL High 74-99 [facility] Comment on above: Performed By: #### 2 341-6 ####IRVIN MUNGUIA ([id number])[facility])[address] [place] [address] 39181 Glucose [Mass/Vol] 179 mg/dL High 74 - 99 mg/dL [facility] Interpretation and review of laboratory results Abnormal [facility] Glucose [Mass/Vol] 179 mg/dL High 74-99 [facility] Comment on above: Performed By: #### 2 341-6 ####IRVIN MUNGUIA ([id number])[facility])[address] [place] [address] 47465 Glucose [Mass/Vol] 169 mg/dL High 74 - 99 mg/dL [facility] Interpretation and review of laboratory results Abnormal [facility] Glucose [Mass/Vol] 169 mg/dL High 74-99 [facility] Comment on above: Performed By: #### 2 341-6 ####IRVIN MUNGUIA ([id number])[facility])[address] [place] [address] 75471 Glucose [Mass/Vol] 134 mg/dL High 74 - 99 mg/dL [facility] Interpretation and review of laboratory results Abnormal [facility] Glucose [Mass/Vol] 134 mg/dL High 74-99 [facility] Comment on above: Performed By: #### 2 341-6 ####IRVIN MUNGUIA ([id number])[facility])[address] [place] [address] 80949 Heparin Assayon 03-01-2024 Heparin unfractionated Chromogenic method Qn (PPP) 0.3 See Comment Below for Therapeutic Ranges IU/mL [facility] Heparin unfractionated Chromogenic method Qn (PPP) 0.4 See Comment Below for Therapeutic Ranges IU/mL [facility] Heparin unfractionated Chrom ogenic method Qn (PPP)on 03-01-2024 Interpretation and review of laboratory results Normal [facility] The therapeutic reference range for UFH may be either 0.3-0.6 IU/mL or 0.3-0.7 IU/mL based on the clinical setting for anticoagulant therapy and the associated nomogram used. For Heparin dosing guidelines based on clinical scenario and Heparin Assay results, please refer to local Pharmacy and the [facility] Guidelines for Anticoagulation Therapy available on the [facility] intranet at: [email or web address]/Pharmacy/P ages/[facility]_Guidelines_for_Antic oagu.aspx [facility] Interpretation and review of laboratory results Normal [facility] The therapeutic reference range for UFH may be either 0.3-0.6 IU/mL or 0.3-0.7 IU/mL based on the clinical setting for anticoagulant therapy and the associated nomogram used. For Heparin dosing guidelines based on clinical scenario and Heparin Assay results, please refer to local Pharmacy and the [facility] Guidelines for Anticoagulation Therapy available on the [facility] intranet at: [email or web address]://Wutsat Systems[facility]/Pharmacy/P ages/[facility] ls_Guidelines_for_Antic oagu.aspx [facility] Heparin.unfractionatedon Heparin unfractionated Chromogenic method Qn (PPP) 0.3 IU/mL Normal See Comment Below for Therapeutic Ranges [facility] Comment on above: Order Comment: The t herapeutic reference range for UFH may be either 0.3-0.6 IU/mL or 0.3-0.7 IU/mL based on the clinical setting for anticoagulant therapy and the associated nomogram used. For Heparin dosing guidelines based on clinical scenario and Heparin Assay results, please refer to local Pharmacy and the [facility] Guidelines for Anticoagulation Therapy available on the [facility] intranet at: [email or web address]://[email or web address]/Pharmacy/Pages/[facility]_Guidelines_for_Anticoagu.aspx Performed By: #### 3 274-8 ####BRYAN EZRA ([id number])[facility])[address] [place] [address] Heparin unfractionated Chromogenic method Qn (PPP) 0.4 IU/mL Normal See Comment Below for Therapeutic Ranges [facility] Comment on above: Order Comment: The t herapeutic reference range for UFH may be either 0.3-0.6 IU/mL or 0.3-0.7 IU/mL based on the clinical setting for anticoagulant therapy and the associated nomogram used. For Heparin dosing guidelines based on clinical scenario and Heparin Assay results, please refer to local Pharmacy and the [facility] Guidelines for Anticoagulation Therapy available on the [facility] intranet at: [email or web address]/Pharmacy/Pages/[facility]_Guidelines_for_Anticoagu.aspx Performed By: #### 3 274-8 ####IRVIN MUNGUIA ([id number])[facility])[address] [place] [address] No Panel Informationon 03-01 [facility] PT Coag (PPP) [Time]on 03-01 INR Coag (PPP) [Relative time] 1.3 {INR} High 0.9 - 1.1 [facility] Interpretation and review of laboratory results Abnormal [facility] INR Coag (PPP) [Relative time] 1.3 High 0.9-1.1 [facility] Comment on above: Performed By: #### 5 902-2 ####IRVIN MUNGUIA ([id number])[facility])[address] [place], [place] [address] Protime-INRon 03-01-2024 PT Coag (PPP) [Time] 14.9 s High [facility] XR ABDOMEN 1 VIEWon 03-01-20 XR ABDOMEN 1 VIEW Normal [facility] XR Abdomen Single viewon Radiology Study observation (narrative) [facility] Work Phone: Amylaseon 02-29-2024 Amylase [Catalytic activity/Vol] 25 U/L Low 29 - 103 U/L [facility] Amylase [Catalytic activity/Vol] 25 U/L Low 29-103 [facility] Comment on above: Performed By: #### 1 798-8 ####IRVIN MUNGUIA ([id number])[facility])[address] [place], [place] [address] Amylase [Catalytic activity/ Vol]on 02-29-2024 Interpretation and review of laboratory results Abnormal [facility] Basic metabolic 2000 panelon 02-29-2024 Anion gap [Moles/Vol] 13 mmol/L 10 - 2 0 mmol/L [facility] Calcium [Mass/Vol] 8.3 mg/dL Low 8.6 - 10. 3 mg/dL [facility] Chloride [Moles/Vol] 102 mmol/L 98 - 10 7 mmol/L [facility] CO2 [Moles/Vol] 24 mmol/L 21 - 32 mmol/L [facility] Creatinine [Mass/Vol] 0.64 mg/dL 0.50 - 1.05 mg/dL [facility] eGFR - PINF [facility] Comment on above: Calculations of estuardo mated GFR are performed using the 2020 CKD-EPI Study Refit equation without the race variable for the IDMS-Traceable creatinine methods. https://jasn.asnjournals.org/content//ASN.160329 1313 Glucose [Mass/Vol] 144 mg/dL High 74 - 99 mg/dL [facility] Interpretation and review of laboratory results Abnormal [facility] Potassium [Moles/Vol] 3.9 mmol/L 3.5 - 5.3 mmol/L [facility] Sodium [Moles/Vol] 135 mmol/L Low 136 - 145 mmol/L [facility] Urea nitrogen [Mass/Vol] 9 mg/dL 6 - 23 mg/dL [facility] Anion gap [Moles/Vol] 13 mmol/L Normal 10-20 [facility] Comment on above: Performed By: #### 2 4321-2 ####IRVIN MUNGUIA ([id number])[facility])[address] [place] [address] Calcium [Mass/Vol] 8.3 mg/dL Low 8.6-10.3 [facility] Comment on above: Performed By: #### 2 4321-2 ####IRVIN MUNGUIA ([id number])[facility])[address] [place] [address] Chloride [Moles/Vol] 102 mmol/L Normal 98-107 [facility] Comment on above: Performed By: #### 2 4321-2 ####IRVIN MUNGUIA ([id number])[facility])[address] [place] [address] 92305 CO2 [Moles/Vol] 24 mmol/L Normal 21-32 [facility] Comment on above: Performed By: #### 2 4321-2 ####IRVIN MUNGUIA ([id number])[facility])[address] [place] [address] 00394 Creatinine [Mass/Vol] 0.64 mg/dL Normal 0.50-1.05 [facility] Comment on above: Performed By: #### 2 432-2 ####IRVIN MUNGUIA ([id number])[facility])[address] [place] [address] 72425 GFR/1.73 sq M.predicted MDRD (S/P/Bld) [Vol rate/Area] mL/min/{1.73_m2} Normal >60 [facility] Comment on above: Result Comment: Calc ulations of estimated GFR are performed using the 2020 CKD-EPI Study Refit equation without the race variable for the IDMS-Traceable creatinine methods.https://jasn.asnjournals.org/content/early// N.3073484922 Performed By: #### 2 4321-2 ####IRVIN MUNGUIA ([id number])[facility])[address] [place] [address] 53986 Glucose [Mass/Vol] 144 mg/dL High 74-99 [facility] Comment on above: Performed By: #### 2 4321-2 ####IRVIN MUNGUIA ([id number])[facility])[address] [place] [address] 17795 Potassium [Moles/Vol] 3.9 mmol/L Normal 3.5-5.3 [facility] Comment on above: Performed By: #### 2 4321-2 ####IRVIN MUNGUIA ([id number])[facility])[address] [place] [address] Sodium [Moles/Vol] 135 mmol/L Low 136-145 [facility] Comment on above: Performed By: #### 2 4321-2 ####IRVIN MUNGUIA ([id number])[facility])[address] [place] [address] 41915 Urea nitrogen [Mass/Vol] 9 mg/dL Normal 6-23 [facility] Comment on above: Performed By: #### 2 4321-2 ####IRVIN MUNGUIA ([id number])[facility])[address] [place] [address] CBC panel Auto (Bld)on 02-28 Erythrocyte distribution width (RBC) [Ratio] 14.3 % 11.5 - 14.5 % [facility] Hematocrit (Bld) [Volume fraction] 34.4 % Low 36.0 - 46.0 % [facility] Hemoglobin (Bld) [Mass/Vol] 10.5 g/dL Low 12.0 - 16.0 g/dL [facility] Interpretation and review of laboratory results Abnormal [facility] MCH (RBC) [Entitic mass] 27.5 pg 26.0 - 34.0 pg [facility] MCHC (RBC) [Mass/Vol] 30.5 g/dL Low 32.0 - 36.0 g/dL [facility] MCV (RBC) [Entitic vol] 90 fL 80 - 100 fL [facility] Nucleated RBC/100 WBC (Bld) [Ratio] 0.0 % [facility] Platelets (Bld) [#/Vol] 322 10*3/uL [facility] RBC (Bld) [#/Vol] 3.82 10*6/uL Low [facility] WBC (Bld) [#/Vol] 5.7 10*3/uL [facility] Erythrocyte distribution width (RBC) [Ratio] 14.3 % Normal 11.5-14.5 [facility] Comment on above: Performed By: #### 5 8410-2 ####IRVIN MUNGUIA ([id number])[facility] ([facility])[address] [place] [address] 92111 Hematocrit (Bld) [Volume fraction] 34.4 % Low 36.0-46.0 [facility] Comment on above: Performed By: #### 5 8410-2 ####IRVIN MUNGUIA ([id number])[facility] ([facility])[address] [place] [address] 60712 Hemoglobin (Bld) [Mass/Vol] 10.5 g/dL Low 12.0-16.0 [facility] Comment on above: Performed By: #### 5 8410-2 ####IRVIN MUNGUIA ([id number])[facility] ([facility])[address] [place] [address] 03680 MCH (RBC) [Entitic mass] 27.5 pg Normal 26.0-34.0 [facility] Comment on above: Performed By: #### 5 8410-2 ####IRVIN MUNGUIA ([id number])[facility])[address] [place] [address] 77770 MCHC (RBC) [Mass/Vol] 30.5 g/dL Low 32.0-36.0 [facility] Comment on above: Performed By: #### 5 8410-2 ####IRVIN MUNGUIA ([id number])[facility])[address] [place] [address] 93920 MCV (RBC) [Entitic vol] 90 fL Normal 80-100 [facility] Comment on above: Performed By: #### 5 8410-2 ####IRVIN MUNGUIA ([id number])[facility])[address] [place] [address] 39270 Nucleated RBC/100 WBC (Bld) [Ratio] 0.0 /100 WBCs Normal 0.0-0.0 [facility] Comment on above: Performed By: #### 5 8410-2 ####IRVIN MUNGUIA ([id number])[facility] ([facility])[address] [place] [address] 19462 Platelets (Bld) [#/Vol] 322 x10*3/uL Normal 150-450 [facility] Comment on above: Performed By: #### 5 8410-2 ####IRVIN MUNUGIA ([id number])[facility])[address] [place] [address] 90803 RBC (Bld) [#/Vol] 3.82 x10*6/uL Low 4.00-5.20 [facility] Comment on above: Performed By: #### 5 8410-2 ####IRVIN MUNGUIA ([id number])[facility])[address] [place] [address] 30845 WBC (Bld) [#/Vol] 5.7 x10*3/uL Normal 4.4-11.3 [facility] Comment on above: Performed By: #### 5 8410-2 ####IRVIN MUNGUIA ([id number])[facility])[address] [place] [address] 54110 Glucose Test strip manual (B ld) [Mass/Vol]on 02-29-2024 Glucose [Mass/Vol] 142 mg/dL High 74 - 99 mg/dL [facility] Interpretation and review of laboratory results Abnormal [facility] Glucose [Mass/Vol] 142 mg/dL High 74-99 [facility] Comment on above: Performed By: #### 2 341-6 ####IRVIN MUNGUIA ([id number])[facility])[address] [place] [address] 78666 Glucose [Mass/Vol] 149 mg/dL High 74 - 99 mg/dL [facility] Interpretation and review of laboratory results Abnormal [facility] Glucose [Mass/Vol] 149 mg/dL High 74-99 [facility] Comment on above: Performed By: #### 2 341-6 ####IRVIN MUNGUIA ([id number])[facility])[address] [place] [address] 86382 Glucose [Mass/Vol] 155 mg/dL High 74 - 99 mg/dL [facility] Comment on above: RN/ NOTIFIED Interpretation and review of laboratory results Abnormal [facility] Glucose [Mass/Vol] 155 mg/dL High 74-99 [facility] Comment on above: Result Comment: RN/Abdoulaye Dillon NOTIFIED Performed By: #### 2 341-6 ####IRVIN MUNGUIA ([id number])[facility])[address] [place] [address] 89354 Glucose [Mass/Vol] 152 mg/dL High 74 - 99 mg/dL [facility] Comment on above: RN/ NOTIFIED Interpretation and review of laboratory results Abnormal [facility] Glucose [Mass/Vol] 152 mg/dL High 74-99 [facility] Comment on above: Result Comment: RN/Abdoulaye Dillon NOTIFIED Performed By: #### 2 341-6 ####IRVIN MUNGUIA ([id number])[facility])[address] [place] [address] 50999 Heparin Assayon 02-29-2024 Heparin unfractionated Chromogenic method Qn (PPP) 0.2 See Comment Below for Therapeutic Ranges IU/mL [facility] Heparin unfractionated Chromogenic method Qn (PPP) 0.1 See Comment Below for Therapeutic Ranges IU/mL [facility] Heparin unfractionated Chromogenic method Qn (PPP) 0.1 See Comment Below for Therapeutic Ranges IU/mL [facility] Heparin Assay, UFHon 024 Heparin unfractionated Chromogenic method Qn (PPP) 0.1 See Comment Below for Therapeutic Ranges IU/mL [facility] Heparin unfractionated Chrom ogenic method Qn (PPP)on 02-29-2024 Interpretation and review of laboratory results Normal [facility] The therapeutic reference range for UFH may be either 0.3-0.6 IU/mL or 0.3-0.7 IU/mL based on the clinical setting for anticoagulant therapy and the associated nomogram used. For Heparin dosing guidelines based on clinical scenario and Heparin Assay results, please refer to local Pharmacy and the [facility] Guidelines for Anticoagulation Therapy available on the [facility] intranet at: [email or web address] [email or web address] ls_Guidelines_for_Antic oagu.aspx [facility] Interpretation and review of laboratory results Normal [facility] The therapeutic reference range for UFH may be either 0.3-0.6 IU/mL or 0.3-0.7 IU/mL based on the clinical setting for anticoagulant therapy and the associated nomogram used. For Heparin dosing guidelines based on clinical scenario and Heparin Assay results, please refer to local Pharmacy and the [facility] Guidelines for Anticoagulation Therapy available on the [facility] intranet at: [email or web address] [email or web address] [email or web address] ls_Guidelines_for_Antic oagu.aspx [facility] Interpretation and review of laboratory results Normal [facility] The therapeutic reference range for UFH may be either 0.3-0.6 IU/mL or 0.3-0.7 IU/mL based on the clinical setting for anticoagulant therapy and the associated nomogram used. For Heparin dosing guidelines based on clinical scenario and Heparin Assay results, please refer to local Pharmacy and [facility] Guidelines for Anticoagulation Therapy available on the [facility] intranet at: [email or web address].[facility] [email or web address]/Pharmacy/P ages/[facility] ls_Guidelines_for_Antic oagu.aspx [facility] Interpretation and review of laboratory results Normal [facility] The therapeutic reference range for UFH may be either 0.3-0.6 IU/mL or 0.3-0.7 IU/mL based on the clinical setting for anticoagulant therapy and the associated nomogram used. For Heparin dosing guidelines based on clinical scenario and Heparin Assay results, please refer to local Pharmacy and the [facility] Guidelines for Anticoagulation Therapy available on the [facility] intranet at: [email or web address].[facility] [email or web address]/Pharmacy/P ages/[facility] ls_Guidelines_for_Antic oagu.aspx [facility] Heparin.unfractionatedon Heparin unfractionated Chromogenic method Qn (PPP) 0.2 IU/mL Normal See Comment Below for Therapeutic Ranges [facility] Comment on above: Order Comment: The t herapeutic reference range for UFH may be either 0.3-0.6 IU/mL or 0.3-0.7 IU/mL based on the clinical setting for anticoagulant therapy and the associated nomogram used. For Heparin dosing guidelines based on clinical scenario and Heparin Assay results, please refer to local Pharmacy and the [facility] Guidelines for Anticoagulation Therapy available on the [facility] intranet at: [email or web address]/Pharmacy/Pages/[facility]_Guidelines_for_Anticoagu.aspx Performed By: #### 3 274-8 ####IRVIN MUNGUIA ([id number])[facility] ([facility])[address] [place] [address] Heparin unfractionated Chromogenic method Qn (PPP) 0.1 IU/mL Normal See Comment Below for Therapeutic Ranges [facility] Comment on above: Order Comment: The t herapeutic reference range for UFH may be either 0.3-0.6 IU/mL or 0.3-0.7 IU/mL based on the clinical setting for anticoagulant therapy and the associated nomogram used. For Heparin dosing guidelines based on clinical scenario and Heparin Assay results, please refer to local Pharmacy and the [facility] Guidelines for Anticoagulation Therapy available on the [facility] intranet at: [email or web address]://[email or web address]/Pharmacy/Pages/[facility]_Guidelines_for_Anticoagu.aspx Performed By: #### 3 274-8 ####IRVIN MUNGUIA ([id number])[facility] ([facility])[address] [place] [address] Heparin unfractionated Chromogenic method Qn (PPP) 0.1 IU/mL Normal See Comment Below for Therapeutic Ranges [facility] Comment on above: Order Comment: The t herapeutic reference range for UFH may be either 0.3-0.6 IU/mL or 0.3-0.7 IU/mL based on the clinical setting for anticoagulant therapy and the associated nomogram used. For Heparin dosing guidelines based on clinical scenario and Heparin Assay results, please refer to local Pharmacy and the [facility] Guidelines for Anticoagulation Therapy available on the [facility] intranet at: [email or web address]/Pharmacy/Pages/[facility]_Guidelines_for_Anticoagu.aspx Performed By: #### 3 274-8 ####IRVIN MUNGUIA ([id number])[facility])[address] [place] [address] Heparin unfractionated Chromogenic method Qn (PPP) 0.1 IU/mL Normal See Comment Below for Therapeutic Ranges [facility] Comment on above: Order Comment: When two (2) consecutive Heparin Assay, UFH results obtained 4 hours apart are therapeutic, obtain STAT Heparin Assay, UFH every a.m. Nursing to release order.The therapeutic reference range for UFH may be either 0.3-0.6 IU/mL or 0.3-0.7 IU/mL based on the clinical setting for anticoagulant therapy and the associated nomogram used. For Heparin dosing guidelines based on clinical scenario and Heparin Assay results, please refer to local Pharmacy and the [facility] Guidelines for Anticoagulation Therapy available on the [facility] intranet at: [email or web address]://[email or web address]/Pharmacy/Pages/[facility]_Guidelines_for_Anticoagu.aspx Performed By: #### 3 274-8 ####IRVIN MUNGUIA ([id number])[facility])[address] [place] [address] 00758 Lipaseon 02-29-2024 Lipase [Catalytic activity/Vol] 33 U/L 9 - 82 U/L [facility] Lipase [Catalytic activity/V ol]on 02-29-2024 Interpretation and review of laboratory results Normal [facility] Venipuncture immediately after or during the administration of Metamizole may lead to falsely low results. Testing should be performed immediately prior to Metamizole dosing. [facility] No Panel Informationon 02-28 [facility] Triacylglycerol lipaseon Lipase [Catalytic activity/Vol] 33 U/L Normal [facility] Comment on above: Order Comment: Venip uncture immediately after or during the administration of Metamizole may lead to falsely low results. Testing should be performed immediately prior to Metamizole dosing. Performed By: #### 3 040-3 ####IRVIN MUNGUIA ([id number])[facility] ([facility])[address] [place] [address] 20124 CBC panel Auto (Bld)on 02-27 Erythrocyte distribution width (RBC) [Ratio] 14.2 % 11.5 - 14.5 % [facility] Hematocrit (Bld) [Volume fraction] 35.7 % Low 36.0 - 46.0 % [facility] Hemoglobin (Bld) [Mass/Vol] 11.2 g/dL Low 12.0 - 16.0 g/dL [facility] Interpretation and review of laboratory results Abnormal [facility] MCH (RBC) [Entitic mass] 27.9 pg 26.0 - 34.0 pg [facility] MCHC (RBC) [Mass/Vol] 31.4 g/dL Low 32.0 - 36.0 g/dL [facility] MCV (RBC) [Entitic vol] 89 fL 80 - 100 fL [facility] Nucleated RBC/100 WBC (Bld) [Ratio] 0.0 % [facility] Platelets (Bld) [#/Vol] 344 10*3/uL [facility] RBC (Bld) [#/Vol] 4.02 10*6/uL [facility] WBC (Bld) [#/Vol] 9.7 10*3/uL [facility] Erythrocyte distribution width (RBC) [Ratio] 14.2 % Normal 11.5-14.5 [facility] Comment on above: Performed By: #### 5 8410-2 ####IRVIN MUNGUIA ([id number])[facility])[address] [place] [address] 05617 Hematocrit (Bld) [Volume fraction] 35.7 % Low 36.0-46.0 [facility] Comment on above: Performed By: #### 5 8410-2 ####IRVIN MUNGUIA ([id number])[facility])[address] [place] [address] 81409 Hemoglobin (Bld) [Mass/Vol] 11.2 g/dL Low 12.0-16.0 [facility] Comment on above: Performed By: #### 5 8410-2 ####IRVIN MUNGUIA ([id number])[facility])[address] [place] [address] 70580 MCH (RBC) [Entitic mass] 27.9 pg Normal 26.0-34.0 [facility] Comment on above: Performed By: #### 5 8410-2 ####IRVIN MUNGUIA ([id number])[facility])[address] [place] [address] 15183 MCHC (RBC) [Mass/Vol] 31.4 g/dL Low 32.0-36.0 [facility] Comment on above: Performed By: #### 5 8410-2 ####IRVIN MUNGUIA ([id number])[facility])[address] [place] [address] 61546 MCV (RBC) [Entitic vol] 89 fL Normal 80-100 [facility] Comment on above: Performed By: #### 5 8410-2 ####IRVIN MUNGUIA ([id number])[facility])[address] [place] [address] 36036 Nucleated RBC/100 WBC (Bld) [Ratio] 0.0 /100 WBCs Normal 0.0-0.0 [facility] Comment on above: Performed By: #### 5 8410-2 ####IRVIN MUNGUIA ([id number])[facility])[address] [place] [address] 24575 Platelets (Bld) [#/Vol] 344 x10*3/uL Normal 150-450 [facility] Comment on above: Performed By: #### 5 8410-2 ####IRVIN MUNGUIA ([id number])[facility])[address] [place] [address] 00041 RBC (Bld) [#/Vol] 4.02 x10*6/uL Normal 4.00-5.20 [facility] Comment on above: Performed By: #### 5 8410-2 ####BRYAN CHELCYNTHIA ([id number])[facility])[address] [place] [address] WBC (Bld) [#/Vol] 9.7 x10*3/uL Normal 4.4-11.3 [facility] Comment on above: Performed By: #### 5 8410-2 ####BRYAN CHELCYNTHIA ([id number])[facility])[address] [place] [address] CT Chest W contrast IV and C T angiogram Pulmonary arteries for pulmonary embolus W contrast Prashant 02-28-2024 1.Focal embolus righ t lower lobe medial pulmonary artery. No findings of heart strain. Critical results were discussed with.Dr. Mike Israel at 1:00 AM. 2.Fatty liver. Signed by Edwin Alejandro DO TELERADIOLOGY STUDY: CT Angiogram of the Chest; 02/27/2024 11:09 PM INDICATION: Filling defect in right lower lobe. History of pulmonary embolism. COMPARISON: None Available. ACCESSION NUMBER(S): [id number] ORDERING CLINICIAN: MIKE LAND TECHNIQUE: CTA of the chest was performed with intravenous contrast. Images are reviewed and processed at a workstation according to the CT angiogram protocol with 3-D and/or MIP post processing imaging generated. Automated mA/kV exposure control was utilized and patient examination was performed in strict accordance with principles of ALARA. FINDINGS: Pulmonary arteries are adequately opacified with focal embolus right lower lobe medial pulmonary artery.. The thoracic aorta is normal in course and caliber without dissection or aneurysm. The heart is enlarged size without pericardial effusion. Thoracic lymph nodes are not enlarged. There is no pleural effusion, pleural thickening, or pneumothorax. The airways are patent. Lungs are clear without consolidation, interstitial disease, or suspicious nodules. There are a few small calcified granulomas. Upper abdomen demonstrates diffuse fatty infiltration of the liver.. There are no acute fractures. No suspicious bony lesions. TELERADIOLOGY Edwin Alejandro D O - 02/28/2024 STUDY: CT Angiogram of the Chest; 02/27/2024 11:09 PM INDICATION: Filling defect in right lower lobe. History of pulmonary embolism. COMPARISON: None Available. ACCESSION NUMBER(S): [id number] ORDERING CLINICIAN: MIKE LAND TECHNIQUE: CTA of the chest was performed with intravenous contrast. Images are reviewed and processed at a workstation according to the CT angiogram protocol with 3-D and/or MIP post processing imaging generated. Automated mA/kV exposure control was utilized and patient examination was performed in strict accordance with principles of ALARA. FINDINGS: Pulmonary arteries are adequately opacified with focal embolus right lower lobe medial pulmonary artery.. The thoracic aorta is normal in course and caliber without dissection or aneurysm. The heart is enlarged size without pericardial effusion. Thoracic lymph nodes are not enlarged. There is no pleural effusion, pleural thickening, or pneumothorax. The airways are patent. Lungs are clear without consolidation, interstitial disease, or suspicious nodules. There are a few small calcified granulomas. Upper abdomen demonstrates diffuse fatty infiltration of the liver.. There are no acute fractures. No suspicious bony lesions. IMPRESSION: 1.Focal embolus right lower lobe medial pulmonary artery. No findings of heart strain. Critical results were discussed with.Dr. Miek Israel at 1:00 AM. 2.Fatty liver. Signed by Edwin Alejandro, [facility] Work Phone: CT Chest W contrast IV and C T angiogram Pulmonary arteries for pulmonary embolus W contrast IVOrdered By: Edwin Alejandro on 02-28-2024 [facility] Work Phone: Coagulation surface inducedo n 02-28-2024 aPTT Coag (PPP) [Time] 30 s Normal 27-38 [facility] Comment on above: Order Comment: Basel ine aPTT before initiating heparin infusion. Nursing to release order.The APTT is no longer used for monitoring Unfractionated Heparin Therapy. For monitoring Heparin Therapy, use the Heparin Assay. Performed By: #### 1 4979-9 ####BRYAN EZRA ([id number])[facility] ([facility])[address] [place] [address] Coagulation tissue factor in ducedon 02-28-2024 PT Coag (PPP) [Time] 13.8 s High 9.8-12.8 [facility] Comment on above: Order Comment: If nawaf mohitstephenie has not had PT + INR in the last 24 hours. Nursing to release order. Performed By: #### 5 902-2 ####BRYAN EZRA ([id number])[facility])[address] [place] [address] Comprehensive metabolic 2000 panelon 02-28-2024 Albumin BCP dye [Mass/Vol] 3.6 g/dL 3.4 - 5.0 g/dL [facility] ALP [Catalytic activity/Vol] 144 U/L High 33 - 110 U/L [facility] ALT With P-5'-P [Catalytic activity/Vol] 29 U/L 7 - 45 U/L [facility] Comment on above: Patients treated wit h Sulfasalazine may generate falsely decreased results for ALT. Anion gap [Moles/Vol] 13 mmol/L 10 - 2 0 mmol/L [facility] AST With P-5'-P [Catalytic activity/Vol] 36 U/L 9 - 39 U/L [facility] Bilirubin [Mass/Vol] 0.3 mg/dL 0.0 - 1 .2 mg/dL [facility] Calcium [Mass/Vol] 8.4 mg/dL Low 8.6 - 10. 3 mg/dL [facility] Chloride [Moles/Vol] 101 mmol/L 98 - 10 7 mmol/L [facility] CO2 [Moles/Vol] 24 mmol/L 21 - 32 mmol/L [facility] Creatinine [Mass/Vol] 0.67 mg/dL 0.50 - 1.05 mg/dL [facility] eGFR - PINF [facility] Comment on above: Calculations of estuardo mated GFR are performed using the 2020 CKD-EPI Study Refit equation without the race variable for the IDMS-Traceable creatinine methods. https://jasn.asnjournals.org/content//ASN.849630 5835 Glucose [Mass/Vol] 125 mg/dL High 74 - 99 mg/dL [facility] Interpretation and review of laboratory results Abnormal [facility] Potassium [Moles/Vol] 4.0 mmol/L 3.5 - 5.3 mmol/L [facility] Protein [Mass/Vol] 7.3 g/dL 6.4 - 8.2 g/dL [facility] Sodium [Moles/Vol] 134 mmol/L Low 136 - 145 mmol/L [facility] Urea nitrogen [Mass/Vol] 12 mg/dL 6 - 23 mg/dL [facility] Albumin BCP dye [Mass/Vol] 3.6 g/dL Normal 3.4-5.0 [facility] Comment on above: Performed By: #### 2 4323-8 ####IRVIN MUNGUIA ([id number])[facility])[address] [place] [address] ALP [Catalytic activity/Vol] 144 U/L High 33-110 [facility] Comment on above: Performed By: #### 2 432-8 ####IRVIN MUNGUIA ([id number])[facility])[address] [place] [address] 78364 ALT With P-5'-P [Catalytic activity/Vol] 29 U/L Normal 7-45 [facility] Comment on above: Result Comment: Evelyn ents treated with Sulfasalazine may generate falsely decreased results for ALT. Performed By: #### 2 4323-8 ####IRVIN MUNGUIA ([id number])[facility])[address] [place] [address] 74122 Anion gap [Moles/Vol] 13 mmol/L Normal 10-20 [facility] Comment on above: Performed By: #### 2 4323-8 ####IRVIN MUNGUIA ([id number])[facility])[address] [place] [address] 89049 AST With P-5'-P [Catalytic activity/Vol] 36 U/L Normal 9-39 [facility] Comment on above: Performed By: #### 2 4323-8 ####IRVIN MUNGUIA ([id number])[facility] ([facility])[address] [place] [address] 45451 Bilirubin [Mass/Vol] 0.3 mg/dL Normal 0.0-1.2 [facility] Comment on above: Performed By: #### 2 4323-8 ####IRVIN MUNGUIA ([id number])[facility] ([facility])[address] [place] [address] 04568 Calcium [Mass/Vol] 8.4 mg/dL Low 8.6-10.3 [facility] Comment on above: Performed By: #### 2 4323-8 ####IRVIN MUNGUIA ([id number])[facility] ([facility])[address] [place] [address] 66383 Chloride [Moles/Vol] 101 mmol/L Normal 98-107 [facility] Comment on above: Performed By: #### 2 4323-8 ####IRVIN MUNGUIA ([id number])[facility] ([facility])[address] [place] [address] 04370 CO2 [Moles/Vol] 24 mmol/L Normal 21-32 [facility] Comment on above: Performed By: #### 2 4323-8 ####IRVIN MUNGUIA ([id number])[facility] ([facility])[address] [place] [address] 79726 Creatinine [Mass/Vol] 0.67 mg/dL Normal 0.50-1.05 [facility] Comment on above: Performed By: #### 2 4323-8 ####IRVIN MUNGUIA ([id number])[facility])[address] [place] [address] 31519 GFR/1.73 sq M.predicted MDRD (S/P/Bld) [Vol rate/Area] mL/min/{1.73_m2} Normal >60 [facility] Comment on above: Result Comment: Calc ulations of estimated GFR are performed using the 2020 CKD-EPI Study Refit equation without the race variable for the IDMS-Traceable creatinine methods.https://jasn.asnjournals.org/content/early/ N.8786566580 Performed By: #### 2 4323-8 ####IRVIN MUNGUIA ([id number])[facility] ([facility])[address] [place] [address] 81409 Glucose [Mass/Vol] 125 mg/dL High 74-99 [facility] Comment on above: Performed By: #### 2 4323-8 ####IRVIN MUNGUIA ([id number])[facility])[address] [place] [address] 55432 Potassium [Moles/Vol] 4.0 mmol/L Normal 3.5-5.3 [facility] Comment on above: Performed By: #### 2 4323-8 ####IRVIN MUNGUIA ([id number])[facility])[address] [place] [address] 52056 Protein [Mass/Vol] 7.3 g/dL Normal 6.4-8.2 [facility] Comment on above: Performed By: #### 2 4323-8 ####IRVIN MUNGUIA ([id number])[facility])[address] [place] [address] Sodium [Moles/Vol] 134 mmol/L Low 136-145 [facility] Comment on above: Performed By: #### 2 4323-8 ####IRVIN MUNGUIA ([id number])[facility])[address] [place], [place] [phone] Urea nitrogen [Mass/Vol] 12 mg/dL Normal 6-23 [facility] Comment on above: Performed By: #### 2 4323-8 ####IRVIN MUNGUIA ([id number])[facility])[address] [place], [place] [phone] ECG 12 LeadOrdered By: Harmony Naik on 02-28-2024 Atrial Rate 101 BPM [facility] Work Phone: P [place] 38 degrees [facility] Work Phone: P Offset 206 ms [facility] Work Phone: P Onset 154 [facility] Work Phone: DC Interval 140 [facility] Work Phone: Q Onset 224 [facility] Work Phone: QRS Count 17 beats [facility] Work Phone: QRS Duration 84 ms [facility] Work Phone: QT Interval 348 ms [facility] Work Phone: QTC Calculation(Bazett) 451 ms [facility] Work Phone: QTC Fredericia 414 ms [facility] Work Phone: R [place] 8 degrees [facility] Work Phone: T [place] 35 degrees [facility] Work Phone: T Offset 398 ms [facility] Work Phone: Ventricular Rate 101 BPM [facility] Work Phone: [facility] Work Phone: ECG 12 Leadon 02-28-2024 Sinus tachycardia Otherwise normal ECG When compared with ECG of 15-FEB-2024 20:28, No significant change was found Confirmed by Dominick Naik ([id number]) on 02/28/2024 9:53:18 PM MUSE Dominick Naik MD - 02/28/2024 Sinus tachycardia Otherwise normal ECG When compared with ECG of 15-FEB-2024 20:, No significant change was found Confirmed by Dominick Naik ([id number]) on 02/28/2024 9:53:18 PM [facility] Work Phone: ECG 12-LEADon 02-28-2024 ECG 12-LEAD Ventricular Rate 101 Atrial Rate 101 P-R Interval 140 QRS Duration 84 Q-T Interval 348 QTC Calculation(Bazett) 451 P [place] 38 R [place] 8 T [place] 35 QRS Count 17 Q Onset 224 P Onset 154 P Offset 206 T Offset 398 QTC Fredericia 414 Diagnosis Sinus tachycardia Otherwise normal ECG When compared with ECG of 15-FEB-2024 20:28, No significant change was found Confirmed by Dominick Naik ([id number]) on 02/28/2024 9:53:18 PM Normal [facility] Glucose Test strip manual (B ld) [Mass/Vol]on 02-28-2024 Glucose [Mass/Vol] 160 mg/dL High 74 - 99 mg/dL [facility] Interpretation and review of laboratory results Abnormal [facility] Glucose [Mass/Vol] 160 mg/dL High 74-99 [facility] Comment on above: Performed By: #### 2 341-6 ####IRVIN MUNGUIA ([id number])[facility])[address] [place] [address] 72647 Glucose [Mass/Vol] 129 mg/dL High 74 - 99 mg/dL [facility] Interpretation and review of laboratory results Abnormal [facility] Glucose [Mass/Vol] 129 mg/dL High 74-99 [facility] Comment on above: Performed By: #### 2 341-6 ####IRVIN MUNGUIA ([id number])[facility])[address] [place] [address] 70860 Glucose [Mass/Vol] 170 mg/dL High 74 - 99 mg/dL [facility] Interpretation and review of laboratory results Abnormal [facility] Glucose [Mass/Vol] 170 mg/dL High 74-99 [facility] Comment on above: Performed By: #### 2 341-6 ####IRVIN MUNGUIA ([id number])[facility])[address] [place] [address] 10092 Glucose [Mass/Vol] 147 mg/dL High 74 - 99 mg/dL [facility] Interpretation and review of laboratory results Abnormal [facility] Glucose [Mass/Vol] 147 mg/dL High 74-99 [facility] Comment on above: Performed By: #### 2 341-6 ####IRVIN MUNGUIA ([id number])[facility] ([facility])[address] [place] [address] 50253 Heparin Assayon 02-28-2024 Heparin unfractionated Chromogenic method Qn (PPP) 0.3 See Comment Below for Therapeutic Ranges IU/mL [facility] Heparin unfractionated Chromogenic method Qn (PPP) 0.7 See Comment Below for Therapeutic Ranges IU/mL [facility] Heparin unfractionated Chrom ogenic method Qn (PPP)on 02-28-2024 Interpretation and review of laboratory results Normal [facility] The therapeutic reference range for UFH may be either 0.3-0.6 IU/mL or 0.3-0.7 IU/mL based on the clinical setting for anticoagulant therapy and the associated nomogram used. For Heparin dosing guidelines based on clinical scenario and Heparin Assay results, please refer to local Pharmacy and [facility] Guidelines for Anticoagulation Therapy available on the [facility] intranet at: https://Wutsat Systemsmercy health [facility] medical centerCollabNethighland ridge hospitalPikanote.[facility]/Pharmacy/P ages/[facility]_Guidelines_for_Antic oagu.aspx [facility] Interpretation and review of laboratory results Normal [facility] The therapeutic reference range for UFH may be either 0.3-0.6 IU/mL or 0.3-0.7 IU/mL based on the clinical setting for anticoagulant therapy and the associated nomogram used. For Heparin dosing guidelines based on clinical scenario and Heparin Assay results, please refer to local Pharmacy and [facility] Guidelines for Anticoagulation Therapy available on the [facility] intranet at: [email or web address] regional medical [email or web address]/P ages/[facility] ls_Guidelines_for_Antic oagu.aspx [facility] Heparin.unfractionatedon Heparin unfractionated Chromogenic method Qn (PPP) 0.3 IU/mL Normal See Comment Below for Therapeutic Ranges [facility] Comment on above: Order Comment: The t herapeutic reference range for UFH may be either 0.3-0.6 IU/mL or 0.3-0.7 IU/mL based on the clinical setting for anticoagulant therapy and the associated nomogram used. For Heparin dosing guidelines based on clinical scenario and Heparin Assay results, please refer to local Pharmacy and the [facility] Guidelines for Anticoagulation Therapy available on the [facility] intranet at: https://Wutsat Systemsmer[facility] health [facility] northspReachTax.[email or web address]/Pharmacy/Pages/[facility]_Guidelines_for_Anticoagu.aspx Performed By: #### 3 274-8 ####IRVIN MUNGUIA ([id number])[facility] ([facility])[address] [place] [address] Heparin unfractionated Chromogenic method Qn (PPP) 0.7 IU/mL Normal See Comment Below for Therapeutic Ranges [facility] Comment on above: Order Comment: The t herapeutic reference range for UFH may be either 0.3-0.6 IU/mL or 0.3-0.7 IU/mL based on the clinical setting for anticoagulant therapy and the associated nomogram used. For Heparin dosing guidelines based on clinical scenario and Heparin Assay results, please refer to local Pharmacy and the [facility] Guidelines for Anticoagulation Therapy available on the [facility] intranet at: https://[facility] northspbon secours health system.[email or web address]/Pharmacy/Pages/[place]_ [facility]_Guidelines_for_Anticoagu.aspx Performed By: #### 3 274-8 ####IRVIN MUNGUIA ([id number])[facility] ([facility])[address] [place] [address] No Panel Informationon 02-27 Extra Tube Hold for add-ons. [facility] Comment on above: Auto resulted. [facility] PT Coag (PPP) [Time]on 02-27 INR Coag (PPP) [Relative time] 1.2 {INR} High 0.9 - 1.1 [facility] Interpretation and review of laboratory results Abnormal [facility] INR Coag (PPP) [Relative time] 1.2 High 0.9-1.1 [facility] Comment on above: Order Comment: If nawaf earl has not had PT + INR in the last 24 hours. Nursing to release order. Performed By: #### 5 902-2 ####IRVIN MUNGUIA ([id number])[facility] ([facility])[address] [place] [address] Protime-INRon 02-28-2024 PT Coag (PPP) [Time] 13.8 s High [facility] TRANSTHORACIC ECHO (TTE) COM PLETEon 02-28-2024 TRANSTHORACIC ECHO (TTE) COMPLETE Normal [facility] Heart TransthoracicOrdere d By: Leon Barrera on 02-28-2024 Aortic Valve Area by Continuity of Peak Velocity 2.01 cm2 [facility] Work Phone: Aortic Valve Area by Continuity of VTI 1.84 cm2 [facility] Work Phone: AV mn grad 7.0 mmHg [facility] Work Phone: AV pk grad 14.7 mmHg [facility] Work Phone: AV pk alice 1.92 m/s [facility] Work Phone: LA vol index A/L 11.3 ml/m2 [facility] Work Phone: LV A4C EF 51.7 [facility] Work Phone: LV Biplane EF 76 % [facility] Work Phone: LVIDd 4.21 cm [facility] Work Phone: LVOT diam 1.90 cm [facility] Work Phone: MV avg E/e' ratio 14.13 [facility] Work Phone: MV E/A ratio 0.91 [facility] Work Phone: RVSP 31.7 mmHg [facility] Work Phone: Tricuspid annular plane systolic excursion 1.9 cm [facility] Work Phone: [facility] Work Phone: [place] [address] [phone], TRANSTHORACIC ECHOCARDIOGRAM REPORT Patient Name: DOROTHEA Lees Physician: [id number] Leon Barrera MD Study Date: 02/28/2024 Ordering Provider: [id number] BREA NOLEN MRN/PID: [id number] Fellow: Nurse: Elyssa Simental RN Date of /Age: 4 1975 / 48 years Brim Buster: BUNNY Higuera RVT Gender: F Additional Staff: Height: 162.56 cm Admit Date: 02/27/2024 Weight: 102.51 kg Admission Status: Inpatient - Routine BSA / BMI: 2.06 m2 / 38.79 kg/m2 Department Location: [address] Blood Pressure: 147 /81 mmHg Study Type: TRANSTHORACIC ECHO (TTE) COMPLETE Diagnosis/ICD: Single subsegmental Pulmonary embolism without acute cor pulmonale-I26.93 Indication: PE CPT Codes: Echo Complete w Full Doppler-92798 Patient History: Pertinent History: No previous echo. Study Detail: The following Echo studies were performed: 2D, M-Mode, Doppler and color flow. Definity used as a contrast agent for endocardial border definition. Total contrast used for this procedure was 2 mL via IV push. A bubble study was not performed. The patient was awake. PHYSICIAN INTERPRETATION: Left Ventricle: Left ventricular systolic function is normal, with an estimated ejection fraction of 60%. There are no regional wall motion abnormalities. The left ventricular cavity size is normal. Spectral Doppler shows a pseudonormal pattern of left ventricular diastolic filling. Left Atrium: The left atrium is normal in size. Right Ventricle: The right ventricle was not well visualized. Unable to determine right ventricular systolic function. Right ventricle is suboptimally visualized but in off-axis views (view 30) appears to have grossly normal size and systolic function. Right Atrium: The right atrium was not well visualized. Aortic Valve: The aortic valve is trileaflet. There is no evidence of aortic valve regurgitation. The peak instantaneous gradient of the aortic valve is 14.7 mmHg. The mean gradient of the aortic valve is 7.0 mmHg. Mitral Valve: The mitral valve is normal in structure. There is no evidence of mitral valve regurgitation. Tricuspid Valve: The tricuspid valve is structurally normal. No evidence of tricuspid regurgitation. Pulmonic Valve: The pulmonic valve is not well visualized. There is no indication of pulmonic valve regurgitation. Pericardium: There is no pericardial effusion noted. There is a pericardial fat pad present. Aorta: The aortic root is normal. CONCLUSIONS: 1. Left ventricular systolic function is normal with a 60% estimated ejection fraction. 2. Spectral Doppler shows a pseudonormal pattern of left ventricular diastolic filling. 3. Poorly visualized anatomical structures due to suboptimal image quality. QUANTITATIVE DATA SUMMARY: 2D MEASUREMENTS: Normal Ranges: Ao Root d: 1.90 cm (2.0-3.7cm) LAs: 3.00 cm (2.7-4.0cm) IVSd: 0.93 cm (0.6-1.1cm) LVPWd: 0.99 cm (0.6-1.1cm) LVIDd: 4.21 cm (3.9-5.9cm) LVIDs: 3.03 cm LV Mass Index: 63.2 g/m2 LV % FS 28.0 % LA VOLUME: Normal Ranges: LA Vol A4C: 18.2 ml (22+/-6mL/m2) LA Vol A2C: 28.1 ml LA Vol BP: 23.4 ml LA Vol Index A4C: 8.8ml/m2 LA Vol Index A2C: 13.6 ml/m2 LA Vol Index BP: 11.3 ml/m2 LA Area A4C: 10.5 cm2 LA Area A2C: 13.5 cm2 LA Major [place] A4C: 5.2 cm LA Major [place] A2C: 5.5 cm LA Volume Index: 13.1 ml/m2 LA Vol A4C: 18.2 ml LA Vol A2C: 27.0 ml M-MODE MEASUREMENTS: Normal Ranges: AoV Exc: 1.50 cm (1.5-2.5cm) AORTA MEASUREMENTS: Normal Ranges: AoV Exc: 1.50 cm (1.5-2.5cm) LV SYSTOLIC FUNCTION BY 2D PLANIMETRY (MOD): Normal Ranges: EF-A4C View: 51.7 % (>=55%) EF-A2C View: 86.8 % EF-Biplane: 76.4 % LV DIASTOLIC FUNCTION: Normal Ranges: MV Peak E: 0.85 m/s (0.7-1.2 m/s) MV Peak A: 0.93 m/s (0.42-0.7 m/s) E/A Ratio: 0.91 (1.0-2.2) MV e' 0.06 m/s (>8.0) MV lateral e' 0.08 m/s MV medial e' 0.07 m/s E/e' Ratio: 14.13 (<8.0) MITRAL VALVE: Normal Ranges: MV DT: 187 msec (150-240msec) AORTIC VALVE: (more content not included)... Leon Samson MD - 02/28/2024 [place] [address] [phone], TRANSTHORACIC ECHOCARDIOGRAM REPORT Patient Name: DOROTHEA Stanford MATY Reading Physician: [id number] Leon Barrera MD Study Date: 02/28/2024 Ordering Provider: [id number] BREA NOLEN MRN/PID: [id number] Fellow: Nurse: Elyssa Simental RN Date of /Age: 4 1975 / 48 years Brim Buster: BUNNY Higuera RVT Gender: F Additional Staff: Height: 162.56 cm Admit Date: 02/27/2024 Weight: 102.51 kg Admission Status: Inpatient - Routine BSA / BMI: 2.06 m2 / 38.79 kg/m2 Department Location: [address] Blood Pressure: 147 /81 mmHg Study Type: TRANSTHORACIC ECHO (TTE) COMPLETE Diagnosis/ICD: Single subsegmental Pulmonary embolism without acute cor pulmonale-I26.93 Indication: PE CPT Codes: Echo Complete w Full Doppler-[id number] Patient History: Pertinent History: No previous echo. Study Detail: The following Echo studies were performed: 2D, M-Mode, Doppler and color flow. Definity used as a contrast agent for endocardial border definition. Total contrast used for this procedure was 2 mL via IV push. A bubble study was not performed. The patient was awake. PHYSICIAN INTERPRETATION: Left Ventricle: Left ventricular systolic function is normal, with an estimated ejection fraction of 60%. There are no regional wall motion abnormalities. The left ventricular cavity size is normal. Spectral Doppler shows a pseudonormal pattern of left ventricular diastolic filling. Left Atrium: The left atrium is normal in size. Right Ventricle: The right ventricle was not well visualized. Unable to determine right ventricular systolic function. Right ventricle is suboptimally visualized but in off-axis views (view 30) appears to have grossly normal size and systolic function. Right Atrium: The right atrium was not well visualized. Aortic Valve: The aortic valve is trileaflet. There is no evidence of aortic valve regurgitation. The peak instantaneous gradient of the aortic valve is 14.7 mmHg. The mean gradient of the aortic valve is 7.0 mmHg. Mitral Valve: The mitral valve is normal in structure. There is no evidence of mitral valve regurgitation. Tricuspid Valve: The tricuspid valve is structurally normal. No evidence of tricuspid regurgitation. Pulmonic Valve: The pulmonic valve is not well visualized. There is no indication of pulmonic valve regurgitation. Pericardium: There is no pericardial effusion noted. There is a pericardial fat pad present. Aorta: The aortic root is normal. CONCLUSIONS: 1. Left ventricular systolic function is normal with a 60% estimated ejection fraction. 2. Spectral Doppler shows a pseudonormal pattern of left ventricular diastolic filling. 3. Poorly visualized anatomical structures due to suboptimal image quality. QUANTITATIVE DATA SUMMARY: 2D MEASUREMENTS: Normal Ranges: Ao Root d: 1.90 cm (2.0-3.7cm) LAs: 3.00 cm (2.7-4.0cm) IVSd: 0.93 cm (0.6-1.1cm) LVPWd: 0.99 cm (0.6-1.1cm) LVIDd: 4.21 cm (3.9-5.9cm) LVIDs: 3.03 cm LV Mass Index: 63.2 g/m2 LV % FS 28.0 % LA VOLUME: Normal Ranges: LA Vol A4C: 18.2 ml (22+/-6mL/m2) LA Vol A2C: 28.1 ml LA Vol BP: 23.4 ml LA Vol Index A4C: 8.8ml/m2 LA Vol Index A2C: 13.6 ml/m2 LA Vol Index BP: 11.3 ml/m2 LA Area A4C: 10.5 cm2 LA Area A2C: 13.5 cm2 LA [place] A4C: 5.2 cm LA Major [place] A2C: 5.5 cm LA Volume Index: 13.1 ml/m2 LA Vol A4C: 18.2 ml LA Vol A2C: 27.0 ml M-MODE MEASUREMENTS: Normal Ranges: AoV Exc: 1.50 cm (1.5-2.5cm) AORTA MEASUREMENTS: Normal Ranges: AoV Exc: 1.50 cm (1.5-2.5cm) LV SYSTOLIC FUNCTION BY 2D PLANIMETRY (MOD): Normal Ranges: EF-A4C View: 51.7 % (>=55%) EF-A2C View: 86.8 % EF-Biplane: 76.4 % LV DIASTOLIC FUNCTION: Normal Ranges: MV Peak E: 0.85 m/s (0.7-1.2 m/s) MV Peak A: 0.93 m/s (0.42-0.7 m/s) E/A Ratio: 0.91 (1.0-2.2) MV e' 0.06 m/s (>8.0) MV lateral e' 0.08 m/s MV medial e' 0.07 m/s E/e' Ratio: 14.13 (<8.0) MITRAL VALVE: Normal Ranges: MV DT: 187 msec (150-240msec) AORTIC VALVE: Normal Ranges: AoV Vmax: 1.92 m/s (<=1.7m/s) AoV Peak P.7 mmHg (<20mmHg) AoV Mean P.0 mmHg (1.7-11.5mmHg) LVOT Max Alice: 1.36 m/s (<=1.1m/s) AoV VTI: 30.70 cm (18-25cm) LVOT VTI: 19.90 cm LVOT Diameter: 1.90 cm (1.8-2.4cm) AoV Area, VTI: 1.84 cm2 (2.5-5.5cm2) AoV Area,Vmax: 2.01 cm2 (2.5-4.5cm2) AoV Dimensionless Index: 0.65 RIGHT VENTRICLE: RV Basal 2.53 cm RV Mid 1.39 cm RV Major 5.6 cm TAPSE: 18.9 mm TRICUSPID VALVE/RVSP: Normal Ranges: Peak TR Velocity: 2.68 m/s RV Syst Pressure: 31.7 mmHg (< 30mmHg) PULMONIC VALVE: Normal Ranges: PV Accel Time: 85 msec (>120ms) PV Max Alice: 1.6 m/s (0.6-0.9m/s) PV Max P.6 mmHg [id number] Leon Barrera MD Electronically signed on 02/28/2024 at 10:49: (more content not included)... [facility] Work Phone: US.doppler Lower extremity v eiadria frederickon 02-28-2024 [place] [id number] [phone], Vascular Lab Report VASC US LOWER EXTREMITY VENOUS DUPLEX BILATERAL Patient Name: DOROTHEA Lees Physician: [id number] Ramírez MD Study Date: 02/28/2024 Ordering Provider: [id number] BREA NOLEN MRN/PID: [id number] Fellow: Technologist: Radha Lewis RVT/AB Date of /Age: 4 1975 Technologist 2: years Gender: F Admission Status: Inpatient Location [facility] Performed: Diagnosis/ICD: Other pulmonary embolism without acute cor pulmonale-I26.99 CPT Codes: 42954 Peripheral venous duplex scan for DVT complete CONCLUSIONS: Right Lower Venous: No evidence of acute deep vein thrombus visualized in the right lower extremity. Cannot rule out thrombus in non-visualized posterior tibial and peroneal veins due to body habitus and swelling. Left Lower Venous: No evidence of acute deep vein thrombus visualized in the left lower extremity. Cannot rule out thrombus in non-visualized posterior tibial vein due to swelling and body habitus. Imaging & Doppler Findings: Right Compressible Thrombus Flow Distal External Iliac Yes None Spontaneous/Phasic CFV Yes None Spontaneous/Phasic PFV Yes None FV Proximal Yes None Spontaneous/Phasic FV Mid Yes None FV Distal Yes None Popliteal Yes None Spontaneous/Phasic Left Compress Thrombus Flow Distal External Iliac Yes None Spontaneous/Phasic CFV Yes None Spontaneous/Phasic PFV Yes None FV Proximal Yes None Spontaneous/Phasic FV Mid Yes None FV Distal Yes None Popliteal Yes None Spontaneous/Phasic Peroneal Yes None [id number] Princess Ramírez MD Final Princess Cook MD - 02/28/2024 [place] [phone], Vascular Lab Report VASC US LOWER EXTREMITY VENOUS DUPLEX BILATERAL Patient Name: DOROTHEA Abdoulaye RUTLEDGE Reading Physician: [id number] Ramírez MD Study Date: 02/28/2024 Ordering Provider: [id number] BREA NOLEN MRN/PID: [id number] Fellow: Technologist: Radha Lewis RVT/AB Date of /Age: 4 1975 Technologist 2: years Gender: F Admission Status: Inpatient Location [facility] Performed: Diagnosis/ICD: Other pulmonary embolism without acute cor pulmonale-I26.99 CPT Codes: 68608 Peripheral venous duplex scan for DVT complete CONCLUSIONS: Right Lower Venous: No evidence of acute deep vein thrombus visualized in the right lower extremity. Cannot rule out thrombus in non-visualized posterior tibial and peroneal veins due to body habitus and swelling. Left Lower Venous: No evidence of acute deep vein thrombus visualized in the left lower extremity. Cannot rule out thrombus in non-visualized posterior tibial vein due to swelling and body habitus. Imaging & Doppler Findings: Right Compressible Thrombus Flow Distal External Iliac Yes None Spontaneous/Phasic CFV Yes None Spontaneous/Phasic PFV Yes None FV Proximal Yes None Spontaneous/Phasic FV Mid Yes None FV Distal Yes None Popliteal Yes None Spontaneous/Phasic Left Compress Thrombus Flow Distal External Iliac Yes None Spontaneous/Phasic CFV Yes None Spontaneous/Phasic PFV Yes None FV Proximal Yes None Spontaneous/Phasic FV Mid Yes None FV Distal Yes None Popliteal Yes None Spontaneous/Phasic Peroneal Yes None [id number] Princess Ramírez MD Final [facility] Work Phone: Radiology Study observation (narrative) [facility] Work Phone: US.doppler Lower extremity v ein - bilateralOrdered By: Princess Ramírez on 02-28-2024 [facility] Work Phone: VASC US LOWER EXTREMITY VENO US DUPLEX BILATERALon 02-28-2024 VASC US LOWER EXTREMITY VENOUS DUPLEX BILATERAL Normal [facility] aPTT - baselineon 02-28-2024 aPTT Coag (PPP) [Time] 30 s [facility] aPTT Coag (PPP) [Time]on Interpretation and review of laboratory results Normal [facility] The APTT is no longe r used for monitoring Unfractionated Heparin Therapy. For monitoring Heparin Therapy, use the Heparin Assay. [facility] Basic metabolic 2000 panelon 02-27-2024 Anion gap [Moles/Vol] 14 mmol/L 10 - 2 0 mmol/L [facility] Calcium [Mass/Vol] 8.8 mg/dL 8.6 - 10. 3 mg/dL [facility] Chloride [Moles/Vol] 100 mmol/L 98 - 10 7 mmol/L [facility] CO2 [Moles/Vol] 24 mmol/L 21 - 32 mmol/L [facility] Creatinine [Mass/Vol] 0.95 mg/dL 0.50 - 1.05 mg/dL [facility] GFR/1.73 sq M.predicted among non-blacks MDRD (S/P/Bld) [Vol rate/Area] 74 mL/min/{1.73_m2} - PINF [facility] Comment on above: Calculations of estuardo mated GFR are performed using the 2020 CKD-EPI Study Refit equation without the race variable for the IDMS-Traceable creatinine methods. https://jasn.asnjournals.org/content//ASN.142973 4667 Glucose [Mass/Vol] 200 mg/dL High 74 - 99 mg/dL [facility] Potassium [Moles/Vol] 4.1 mmol/L 3.5 - 5.3 mmol/L [facility] Sodium [Moles/Vol] 134 mmol/L Low 136 - 145 mmol/L [facility] Urea nitrogen [Mass/Vol] 15 mg/dL 6 - 23 mg/dL [facility] Anion gap [Moles/Vol] 14 mmol/L Normal 10-20 [facility] Comment on above: Performed By: #### 2 4321-2 ####BRYAN EZRA ([id number])[facility] ([facility])[address] [place] [address] Calcium [Mass/Vol] 8.8 mg/dL Normal 8.6-10.3 [facility] Comment on above: Performed By: #### 2 4321-2 ####IRVIN MUNGUIA ([id number])[facility] ([facility])[address] [place] [address] 80654 Chloride [Moles/Vol] 100 mmol/L Normal 98-107 [facility] Comment on above: Performed By: #### 2 4321-2 ####IRVIN MUNGUIA ([id number])[facility] ([facility])[address] [place] [address] 76425 CO2 [Moles/Vol] 24 mmol/L Normal 21-32 [facility] Comment on above: Performed By: #### 2 4321-2 ####IRVIN MUNGUIA ([id number])[facility] ([facility])[address] [place] [address] 82905 Creatinine [Mass/Vol] 0.95 mg/dL Normal 0.50-1.05 [facility] Comment on above: Performed By: #### 2 4321-2 ####IRVIN MUNGUIA ([id number])[facility] ([facility])[address] [place] [address] 04814 Glomerular filtration rate/1.73 sq M.predicted 74 mL/min/1.73m*2 Normal >60 [facility] Comment on above: Result Comment: Calc ulations of estimated GFR are performed using the 2020 CKD-EPI Study Refit equation without the race variable for the IDMS-Traceable creatinine methods.https://jasn.asnjournals.org/content/early// N.1226993529 Performed By: #### 2 4321-2 ####IRVIN MUNGUIA ([id number])[facility] ([facility])[address] [place] [address] 44170 Glucose [Mass/Vol] 200 mg/dL High 74-99 [facility] Comment on above: Performed By: #### 2 4321-2 ####IRVIN MUNGUIA ([id number])[facility] ([facility])[address] [place] [address] Potassium [Moles/Vol] 4.1 mmol/L Normal 3.5-5.3 [facility] Comment on above: Performed By: #### 2 4321-2 ####IRVIN MUNGUIA ([id number])[facility] ([facility])[address] [place] [address] 85794 Sodium [Moles/Vol] 134 mmol/L Low 136-145 [facility] Comment on above: Performed By: #### 2 4321-2 ####IRVIN MUNGUIA ([id number])[facility])[address] [place] [address] 28949 Urea nitrogen [Mass/Vol] 15 mg/dL Normal 6-23 [facility] Comment on above: Performed By: #### 2 4321-2 ####IRVIN MUNGUIA ([id number])[facility] ([facility])[address] [place], [place] [address] CBC W Auto Differential pane l (Bld)on 02-27-2024 Basophils (Bld) [#/Vol] 0.03 10*3/uL [facility] Basophils/100 WBC (Bld) 0.2 % 0.0 - 2.0 % [facility] Eosinophils (Bld) [#/Vol] 0.10 10*3/uL [facility] Eosinophils/100 WBC (Bld) 0.8 % 0.0 - 6.0 % [facility] Erythrocyte distribution width (RBC) [Ratio] 14.0 % 11.5 - 14.5 % [facility] Hematocrit (Bld) [Volume fraction] 36.8 % 36.0 - 46.0 % [facility] Hemoglobin (Bld) [Mass/Vol] 11.4 g/dL Low 12.0 - 16.0 g/dL [facility] Immature granulocytes (Bld) [#/Vol] 0.11 10*3/uL [facility] Immature granulocytes/100 WBC (Bld) 0.9 % 0.0 - 0.9 % [facility] Comment on above: Immature Granulocyte Count (IG) includes promyelocytes, myelocytes and metamyelocytes but does not include bands. Percent differential counts (%) should be interpreted in the context of the absolute cell counts (cells/UL). Interpretation and review of laboratory results Abnormal [facility] Lymphocytes (Bld) [#/Vol] 2.94 10*3/uL [facility] Lymphocytes/100 WBC (Bld) 23.6 % 13.0 - 44.0 % [facility] MCH (RBC) [Entitic mass] 27.4 pg 26.0 - 34.0 pg [facility] MCHC (RBC) [Mass/Vol] 31.0 g/dL Low 32.0 - 36.0 g/dL [facility] MCV (RBC) [Entitic vol] 89 fL 80 - 100 fL [facility] Monocytes (Bld) [#/Vol] 0.72 10*3/uL [facility] Monocytes/100 WBC (Bld) 5.8 % 2.0 - 10.0 % [facility] Neutrophils (Bld) [#/Vol] 8.58 10*3/uL High [facility] Comment on above: Percent differential counts (%) should be interpreted in the context of the absolute cell counts (cells/uL). Neutrophils/100 WBC (Bld) 68.7 % 40.0 - 80.0 % [facility] Nucleated RBC/100 WBC (Bld) [Ratio] 0.0 % [facility] Platelets (Bld) [#/Vol] 327 10*3/uL [facility] RBC (Bld) [#/Vol] 4.16 10*6/uL [facility] WBC (Bld) [#/Vol] 12.5 10*3/uL High [facility] Basophils (Bld) [#/Vol] 0.03 x10*3/uL Normal 0.00-0.10 [facility] Comment on above: Performed By: #### 5 7021-8 ####BRYAN EZRA ([id number])[facility] ([facility])[address] [place] [address] Basophils/100 WBC (Bld) 0.2 % Normal 0.0-2.0 [facility] Comment on above: Performed By: #### 5 7021-8 ####IRVIN MUNGUIA ([id number])[facility] ([facility])[address] [place] [address] 12264 Eosinophils (Bld) [#/Vol] 0.10 x10*3/uL Normal 0.00-0.70 [facility] Comment on above: Performed By: #### 5 7021-8 ####IRVIN MUNGUIA ([id number])[facility])[address] [place] [address] 65728 Eosinophils/100 WBC (Bld) 0.8 % Normal 0.0-6.0 [facility] Comment on above: Performed By: #### 7021-8 ####IRVIN MUNGUIA ([id number])[facility])[address] [place] [address] 33029 Erythrocyte distribution width (RBC) [Ratio] 14.0 % Normal 11.5-14.5 [facility] Comment on above: Performed By: #### 7021-8 ####IRVIN MUNGUIA ([id number])[facility])[address] [place] [address] 92889 Hematocrit (Bld) [Volume fraction] 36.8 % Normal 36.0-46.0 [facility] Comment on above: Performed By: #### 5 7021-8 ####IRVIN MUNGUIA ([id number])[facility])[address] [place] [address] 05651 Hemoglobin (Bld) [Mass/Vol] 11.4 g/dL Low 12.0-16.0 [facility] Comment on above: Performed By: #### 7021-8 ####IRVIN MUNGUIA ([id number])[facility])[address] [place] [address] 53365 Immature granulocytes (Bld) [#/Vol] 0.11 x10*3/uL Normal 0.00-0.70 [facility] Comment on above: Performed By: #### 7021-8 ####IRVIN MUNGUIA ([id number])[facility])[address] [place] [address] 05710 Immature granulocytes/100 WBC (Bld) 0.9 % Normal 0.0-0.9 [facility] Comment on above: Result Comment: Debbie ture Granulocyte Count (IG) includes promyelocytes, myelocytes and metamyelocytes but does not include bands. Percent differential counts (%) should be interpreted in the context of the absolute cell counts (cells/UL). Performed By: #### 5 7021-8 ####IRVIN MUNGUIA ([id number])[facility])[address] [place] [address] 39115 Lymphocytes (Bld) [#/Vol] 2.94 x10*3/uL Normal 1.20-4.80 [facility] Comment on above: Performed By: #### 5 7021-8 ####IRVIN MUNGUIA ([id number])[facility])[address] [place] [address] 44328 Lymphocytes/100 WBC (Bld) 23.6 % Normal 13.0-44.0 [facility] Comment on above: Performed By: #### 5 7021-8 ####IRVIN MUNGUIA ([id number])[facility])[address] [place] [address] 58659 MCH (RBC) [Entitic mass] 27.4 pg Normal 26.0-34.0 [facility] Comment on above: Performed By: #### 5 7021-8 ####IRVIN MUNGUIA ([id number])[facility])[address] [place] [address] 34426 MCHC (RBC) [Mass/Vol] 31.0 g/dL Low 32.0-36.0 [facility] Comment on above: Performed By: #### 5 7021-8 ####IRVIN MUNGUIA ([id number])[facility])[address] [place] [address] 23166 MCV (RBC) [Entitic vol] 89 fL Normal 80-100 [facility] Comment on above: Performed By: #### 5 7021-8 ####IRVIN MUNGUIA ([id number])[facility])[address] [place] [address] 71195 Monocytes (Bld) [#/Vol] 0.72 x10*3/uL Normal 0.10-1.00 [facility] Comment on above: Performed By: #### 5 7021-8 ####IRVIN MUNGUIA ([id number])[facility])[address] [place] [address] 72292 Monocytes/100 WBC (Bld) 5.8 % Normal 2.0-10.0 [facility] Comment on above: Performed By: #### 5 7021-8 ####IRVIN MUNGUIA ([id number])[facility])[address] [place] [address] 28690 Neutrophils (Bld) [#/Vol] 8.58 x10*3/uL High 1.20-7.70 [facility] Comment on above: Result Comment: Perc ent differential counts (%) should be interpreted in the context of the absolute cell counts (cells/uL). Performed By: #### 5 7021-8 ####IRVIN MUNGUIA ([id number])[facility])[address] [place] [address] 20876 Neutrophils/100 WBC (Bld) 68.7 % Normal 40.0-80.0 [facility] Comment on above: Performed By: #### 5 7021-8 ####IRVIN MUNGUIA ([id number])[facility])[address] [place] [address] 54372 Nucleated RBC/100 WBC (Bld) [Ratio] 0.0 /100 WBCs Normal 0.0-0.0 [facility] Comment on above: Performed By: #### 5 7021-8 ####IRVIN MUNGUIA ([id number])[facility])[address] [place] [address] 43998 Platelets (Bld) [#/Vol] 327 x10*3/uL Normal 150-450 [facility] Comment on above: Performed By: #### 5 7021-8 ####IRVIN MUNGUIA ([id number])[facility] [place] [address] RBC (Bld) [#/Vol] 4.16 x10*6/uL Normal 4.00-5.20 [facility] Comment on above: Performed By: #### 5 7021-8 ####IRVIN MUNGUIA ([id number])[facility])[address] [place], [place] [address] WBC (Bld) [#/Vol] 12.5 x10*3/uL High 4.4-11.3 [facility] Comment on above: Performed By: #### 5 7021-8 ####IRVIN MUNGUIA ([id number])[facility])[address] [place] [address] CT ABDOMEN PELVIS W IV CONTR Reny 02-27-2024 CT ABDOMEN PELVIS W IV CONTRAST Normal [facility] CT ANGIO CHEST FOR PULMONARY EMBOLISMon 02-27-2024 CT ANGIO CHEST FOR PULMONARY EMBOLISM Normal [facility] CT Abdomen and Pelvis W cont rast Prashant 02-27-2024 Peripancreatic edema compatible with acute pancreatitis. There is a new small fluid collection in the pancreatic body near the neck, measuring up to transaxial diameters, 20 mm in CC diameter (series 2, images 57-61), suggesting new small region of the walled-off necrosis or developing pseudocyst. There is interval decrease in size of a collection in the root of the mesentery measuring up to 4.3 x 2.1 cm in transaxial diameters and 2.5 cm in CC diameter. Sterility of fluid within these collections can not be determined by imaging. There is an apparent small filling defect in the right lower lobe posterior basal segmental artery (series 2, images 15-19), suspicious for pulmonary embolus. Confirmation and evaluation for additional possible clot burden in the pulmonary arterial system suggested with CT angiography of the chest for PE. The posterior wall of the gastric antrum in the medial pierre of the 1st and 2nd portions of the duodenal are adherent to the inflamed pancreatic head. Moderate to large volume of colonic stool, suggesting constipation. Hepatomegaly and hepatic steatosis. Foci of induration and subcutaneous air in the ventral abdominal wall, presumably related to medication injection and also present previously. Additional findings as discussed above. MACRO: None Signed by: Letha Jade 02/27/2024 9:21 PM Dictation workstation: [id number] Interpreted By: Letha Nicolas, STUDY: CT ABDOMEN PELVIS W IV CONTRAST; ; 02/27/2024 8:13 pm INDICATION: Signs/Symptoms:diffuse abdominal pain. COMPARISON: 02/15/2024. ACCESSION NUMBER(S): [id number] ORDERING CLINICIAN: HEMALATHA JACOBSON TECHNIQUE: Axial CT images of the abdomen and pelvis with coronal and sagittal reconstructed images performed after intravenous administration of 68 cc Omnipaque 350. FINDINGS: LOWER CHEST: There is an apparent small filling defect in the right lower lobe posterior basal segmental artery (series 2, images 15-19), suspicious for pulmonary embolus. Confirmation and evaluation for additional possible clot burden in the pulmonary arterial system suggested with CT angiography of the chest for PE. Normal heart size. Distal end of central venous catheter in the right atrium. BONES: No acute osseous abnormality. Incidental small bone islands in the pelvis and proximal right femur. ABDOMINAL WALL: Patchy subcutaneous induration and locules of air, probably relate to medication injection, also present previously. Small fat containing umbilical hernia. ABDOMEN: LIVER: Enlarged and steatotic. No definite focal lesion. BILE DUCTS: No biliary ductal dilation. Biliary stent is normally positioned. GALLBLADDER: Absent, as before. PANCREAS: Pancreatic atrophy and ductal dilation again seen. Peripancreatic edema compatible with acute pancreatitis. There is a new small fluid collection in the pancreatic body near the neck, measuring up to transaxial diameters, 20 mm in CC diameter (series 2, images 57-61), suggesting new small region of the walled-off necrosis or developing pseudocyst. There is interval decrease in size of a collection in the root of the mesentery measuring up to 4.3 x 2.1 cm in transaxial diameters and 2.5 cm in CC diameter. Sterility of fluid within these collections can not be determined by imaging. SPLEEN: Within normal limits. ADRENALS: Within normal limits. KIDNEYS and URETERS: Within normal limits. VESSELS: Metallic density in the IVC again seen suggesting prior placement of IVC filter, with effacement of the IVC lumen in this region, suggesting focal occlusion. Otherwise, within normal limits. RETROPERITONEUM: No pathologically enlarged retroperitoneal lymph nodes. PELVIS: REPRODUCTIVE ORGANS: No pelvic masses. Uterus and adnexae are within normal limits BLADDER: Decompressed, and not well evaluated. No bladder calculus or obvious mass. No obvious perivesical inflammatory change. BOWEL: The posterior wall of the gastric antrum in the medial pierre of the 1st and 2nd portions of the duodenal are adherent to the inflamed pancreatic head. No dilated or thickened or definitely abnormally enhancing bowel. Colonic diverticula without inflammation. Moderate to large volume of colonic stool. Normal appendix. PERITONEUM: No ascites or free air, no fluid collection. MMODAL Letha Jade MD - 02/27/2024 Interpreted By: Letha Jade, STUDY: CT ABDOMEN PELVIS W IV CONTRAST; ; 02/27/2024 8:13 pm INDICATION: Signs/Symptoms:diffuse abdominal pain. COMPARISON: 02/15/2024. ACCESSION NUMBER(S): [id number] ORDERING CLINICIAN: HEMALATHA JACOBSON TECHNIQUE: Axial CT images of the abdomen and pelvis with coronal and sagittal reconstructed images performed after intravenous administration of 68 cc Omnipaque 350. FINDINGS: LOWER CHEST: There is an apparent small filling defect in the right lower lobe posterior basal segmental artery (series 2, images 15-19), suspicious for pulmonary embolus. Confirmation and evaluation for additional possible clot burden in the pulmonary arterial system suggested with CT angiography of the chest for PE. Normal heart size. Distal end of central venous catheter in the right atrium. BONES: No acute osseous abnormality. Incidental small bone islands in the pelvis and proximal right femur. ABDOMINAL WALL: Patchy subcutaneous induration and locules of air, probably relate to medication injection, also present previously. Small fat containing umbilical hernia. ABDOMEN: LIVER: Enlarged and steatotic. No definite focal lesion. BILE DUCTS: No biliary ductal dilation. Biliary stent is normally positioned. GALLBLADDER: Absent, as before. PANCREAS: Pancreatic atrophy and ductal dilation again seen. Peripancreatic edema compatible with acute pancreatitis. There is a new small fluid collection in the pancreatic body near the neck, measuring up to transaxial diameters, 20 mm in CC diameter (series 2, images 57-61), suggesting new small region of the walled-off necrosis or developing pseudocyst. There is interval decrease in size of a collection in the root of the mesentery measuring up to 4.3 x 2.1 cm in transaxial diameters and 2.5 cm in CC diameter. Sterility of fluid within these collections can not be determined by imaging. SPLEEN: Within normal limits. ADRENALS: Within normal limits. KIDNEYS and URETERS: Within normal limits. VESSELS: Metallic density in the IVC again seen suggesting prior placement of IVC filter, with effacement of the IVC lumen in this region, suggesting focal occlusion. Otherwise, within normal limits. RETROPERITONEUM: No pathologically enlarged retroperitoneal lymph nodes. PELVIS: REPRODUCTIVE ORGANS: No pelvic masses. Uterus and adnexae are within normal limits BLADDER: Decompressed, and not well evaluated. No bladder calculus or obvious mass. No obvious perivesical inflammatory change. BOWEL: The posterior wall of the gastric antrum in the medial pierre of the 1st and 2nd portions of the duodenal are adherent to the inflamed pancreatic head. No dilated or thickened or definitely abnormally enhancing bowel. Colonic diverticula without inflammation. Moderate to large volume of colonic stool. Normal appendix. PERITONEUM: No ascites or free air, no fluid collection. IMPRESSION: Peripancreatic edema compatible with acute pancreatitis. There is a new small fluid collection in the pancreatic body near the neck, measuring up to transaxial diameters, 20 mm in CC diameter (series 2, images 57-61), suggesting new small region of the walled-off necrosis or developing pseudocyst. There is interval decrease in size of a collection in the root of the mesentery measuring up to 4.3 x 2.1 cm in transaxial diameters and 2.5 cm in CC diameter. Sterility of fluid within these collections can not be determined by imaging. There is an apparent small filling defect in the right lower lobe posterior basal segmental artery (series 2, images 15-19), suspicious for pulmonary embolus. Confirmation and evaluation for additional possible clot burden in the pulmonary arterial system suggested with CT angiography of the chest for PE. The posterior wall of the gastric antrum in the medial pierre of the 1st and 2nd portions of the duodenal are adherent to the inflamed pancreatic head. Moderate to large volume of colonic stool, suggesting constipation. Hepatomegaly and hepatic steatosis. Foci of induration and subcutaneous air in the ventral abdominal wall, presumably related to medication injection and also present previously. Additional findings as discussed above. MACRO: None Signed by: Letha Jade 02/27/2024 9:21 PM Dictation workstation: [id number] [facility] Work Phone: Radiology Study observation (narrative) [facility] Work Phone: CT Abdomen and Pelvis W cont rast IVOrdered By: Letha Jade on 02-27-2024 [facility] Work Phone: CT Chest W contrast IV and C T angiogram Pulmonary arteries for pulmonary embolus W contrast Prashant 02-27-2024 Radiology Study observation (narrative) [facility] Work Phone: Hepatic function 2000 panelo n 02-27-2024 Albumin BCP dye [Mass/Vol] 3.8 g/dL 3.4 - 5.0 g/dL [facility] ALP [Catalytic activity/Vol] 147 U/L High 33 - 110 U/L [facility] ALT With P-5'-P [Catalytic activity/Vol] 22 U/L 7 - 45 U/L [facility] Comment on above: Patients treated wit h Sulfasalazine may generate falsely decreased results for ALT. AST With P-5'-P [Catalytic activity/Vol] 21 U/L 9 - 39 U/L [facility] Bilirubin [Mass/Vol] 0.3 mg/dL 0.0 - 1 .2 mg/dL [facility] Bilirubin.direct [Mass/Vol] 0.1 mg/dL 0.0 - 0.3 mg/dL [facility] Protein [Mass/Vol] 7.7 g/dL 6.4 - 8.2 g/dL [facility] Albumin BCP dye [Mass/Vol] 3.8 g/dL Normal 3.4-5.0 [facility] Comment on above: Performed By: #### 2 4325-3 ####IRVIN MUNGUIA ([id number])[facility] ([facility])[address] [place] [address] ALP [Catalytic activity/Vol] 147 U/L High 33-110 [facility] Comment on above: Performed By: #### 2 4325-3 ####IRVIN MUNGUIA ([id number])[facility] ([facility])[address] [place] [address] 76034 ALT With P-5'-P [Catalytic activity/Vol] 22 U/L Normal 7-45 [facility] Comment on above: Result Comment: Evelyn ents treated with Sulfasalazine may generate falsely decreased results for ALT. Performed By: #### 2 4325-3 ####IRVIN MUNGUIA ([id number])[facility] ([facility])[address] [place] [address] 49438 AST With P-5'-P [Catalytic activity/Vol] 21 U/L Normal 9-39 [facility] Comment on above: Performed By: #### 2 4325-3 ####IRVIN MUNGUIA ([id number])[facility] ([facility] [place] [address] 17683 Bilirubin [Mass/Vol] 0.3 mg/dL Normal 0.0-1.2 [facility] Comment on above: Performed By: #### 2 4325-3 ####IRVIN MUNGUIA ([id number])[facility] ([facility])[address] [place] [address] 13138 Bilirubin.direct [Mass/Vol] 0.1 mg/dL Normal 0.0-0.3 [facility] Comment on above: Performed By: #### 2 4325-3 ####IRVIN MUNGUIA ([id number])[facility] ([facility])[address] [place] [address] 88945 Protein [Mass/Vol] 7.7 g/dL Normal 6.4-8.2 [facility] Comment on above: Performed By: #### 2 4325-3 ####IRVIN MUNGUIA ([id number])[facility] ([facility])[address] [place] [address] 93881 Lactateon 02-27-2024 Lactate [Moles/Vol] 1.9 mmol/L 0.4 - 2. 0 mmol/L [facility] Lactate [Moles/Vol] 1.9 mmol/L Normal 0.4-2.0 [facility] Comment on above: Order Comment: Venip uncture immediately after or during the administration of Metamizole may lead to falsely low results. Testing should be performed immediatelyprior to Metamizole dosing. Performed By: #### 2 524-7 ####IRVIN MUNGUIA ([id number])[facility] ([facility])[address] [place] [address] 88539 Lactate [Moles/Vol]on 2023 Interpretation and review of laboratory results Normal [facility] Venipuncture immediately after or during the administration of Metamizole may lead to falsely low results. Testing should be performed immediately prior to Metamizole dosing. [facility] Lipaseon 02-27-2024 Lipase [Catalytic activity/Vol] 62 U/L - U/L [facility] Lipase [Catalytic activity/V ol]on 02-27-2024 Interpretation and review of laboratory results Normal [facility] Venipuncture immediately after or during the administration of Metamizole may lead to falsely low results. Testing should be performed immediately prior to Metamizole dosing. [facility] No Panel Informationon 02-26 Interpretation and review of laboratory results Abnormal [facility] Triacylglycerol lipaseon Lipase [Catalytic activity/Vol] 62 U/L Normal [facility] Comment on above: Order Comment: Venip uncture immediately after or during the administration of Metamizole may lead to falsely low results. Testing should be performed immediately prior to Metamizole dosing. Performed By: #### 3 040-3 ####IRVIN MUNGUIA ([id number])[facility] ([facility])[address] [place] [address] 12981 Urinalysis complete W Reflex Culture panel (U)on 02-27-2024 Appearance (U) Clear Clear [facility] Bilirubin (U) [Mass/Vol] Negative NEGATIVE [facility] Color (U) Light-Yellow Light-Yellow , Yellow, Dark-Yellow [facility] Epithelial cells.squamous Auto (Urine sed) [#/Area] 1-9 (SPARSE) Reference range not established. /HPF [facility] Glucose Auto test strip (U) [Mass/Vol] Normal Normal mg/dL [facility] Interpretation and review of laboratory results Abnormal [facility] Ketones (U) [Mass/Vol] TRACE Abnormal NEGATIVE mg/dL [facility] Leukocyte esterase Auto test strip Ql (U) Negative NEGATIVE [facility] Mucus Auto (Urine sed) [#/Area] FEW Reference range not established. /LPF [facility] Nitrite Auto test strip Ql (U) Negative NEGATIVE [facility] pH (U) 6.5 [pH] 5.0, 5.5, 6.0, 6.5, 7.0, 7.5, 8.0 [facility] Protein (U) [Mass/Vol] 30 (1+) Abnormal NEGATIVE, 10 (TRACE), 20 (TRACE) mg/dL [facility] RBC (U) [#/Vol] Negative NEGATIVE [facility] RBC Auto (Urine sed) [#/Area] 1-2 NONE, 1-2, 3-5 /HPF [facility] Specific gravity (U) [Rel density] 1.033 1.005 - 1.035 [facility] Urobilinogen (U) [Mass/Vol] Normal Normal mg/dL [facility] WBC Auto (Urine sed) [#/Area] 1-5 1-5, NONE /HPF [facility] Appearance (U) Clear Normal Clear [facility] Comment on above: Performed By: #### 5 8077-9 ####IRVIN MUNGUIA ([id number])[facility] ([facility])[address] [place] [address] 38372 Bilirubin (U) [Mass/Vol] Negative Normal NEGATIVE [facility] Comment on above: Performed By: #### 5 8077-9 ####IRVIN MUNGUIA ([id number])[facility] ([facility])[address] [place] [address] 30166 Color (U) Light-Yellow Normal Light-Yellow , Yellow, Dark-Yellow [facility] Comment on above: Performed By: #### 5 8077-9 ####IRVIN MUNGUIA ([id number])[facility] ([facility])[address] [place] [address] 84997 Epithelial cells.squamous Auto (Urine sed) [#/Area] 1-9 (SPARSE) Normal Reference range not established. [facility] Comment on above: Performed By: #### 5 8077-9 ####IRVIN MUNGUIA ([id number])[facility] ([facility])[address] [place], [place] [address] Glucose Auto test strip (U) [Mass/Vol] Normal Normal Normal [facility] Comment on above: Performed By: #### 5 8077-9 ####IRVIN MUNGUIA ([id number])[facility] ([facility])[address] [place], [place] [address] Ketones (U) [Mass/Vol] TRACE Abnormal NEGATIVE [facility] Comment on above: Performed By: #### 5 8077-9 ####IRVIN MUNGUIA ([id number])[facility] ([facility])[address] [place] [address] Leukocyte esterase Auto test strip Ql (U) Negative Normal NEGATIVE [facility] Comment on above: Performed By: #### 5 8077-9 ####IRVIN MUNGUIA ([id number])[facility] ([facility])[address] [place] [address] 24531 Mucus Auto (Urine sed) [#/Area] FEW Normal Reference range not established. [facility] Comment on above: Performed By: #### 5 8077-9 ####IRVIN MUNGUIA ([id number])[facility] ([facility])[address] [place] [address] 48933 Nitrite Auto test strip Ql (U) Negative Normal NEGATIVE [facility] Comment on above: Performed By: #### 5 8077-9 ####IRVIN MUNGUIA ([id number])[facility] ([facility])[address] [place] [address] 99209 pH (U) 6.5 [pH] Normal 5.0, 5.5, 6.0, 6.5, 7.0, 7.5, 8.0 [facility] Comment on above: Performed By: #### 5 8077-9 ####IRVIN MUNGUIA ([id number])[facility] ([facility])[address] [place] [address] 90062 Protein (U) [Mass/Vol] 30 (1+) Abnormal NEGATIVE, 10 (TRACE), 20 (TRACE) [facility] Comment on above: Performed By: #### 5 8077-9 ####IRVIN MUNGUIA ([id number])[facility] ([facility])[address] [place] [address] 86140 RBC (U) [#/Vol] Negative Normal NEGATIVE [facility] Comment on above: Performed By: #### 5 8077-9 ####IRVIN MUNGUIA ([id number])[facility] ([facility])[address] [place] [address] 83441 RBC Auto (Urine sed) [#/Area] 1-2 Normal NONE, 1-2, 3-5 [facility] Comment on above: Performed By: #### 5 8077-9 ####IRVIN MUNGUIA ([id number])[facility] ([facility])[address] [place] [address] 91361 Specific gravity (U) [Rel density] 1.033 Normal 1.005-1.035 [facility] Comment on above: Performed By: #### 5 8077-9 ####IRVIN MUNGUIA ([id number])[facility] ([facility])[address] [place] [address] 00219 Urobilinogen (U) [Mass/Vol] Normal Normal Normal [facility] Comment on above: Performed By: #### 5 8077-9 ####IRVIN MUNGUIA ([id number])[facility] ([facility])[address] [place] [address] 29760 WBC Auto (Urine sed) [#/Area] 1-5 Normal 1-5, NONE [facility] Comment on above: Performed By: #### 5 8077-9 ####IRVIN MUNGUIA ([id number])[facility] ([facility])[address] [place] [address] 46289 Basic metabolic 2000 panelon 02-21-2024 Anion gap [Moles/Vol] 13 mmol/L Normal 10-20 [facility] Comment on above: Performed By: #### 2 4321-2 ####IRVIN MUNGUIA ([id number])[facility] ([facility])[address] [place] [address] 67393 Calcium [Mass/Vol] 9.0 mg/dL Normal 8.6-10.3 [facility] Comment on above: Performed By: #### 2 4321-2 ####IRVIN MUNGUIA ([id number])[facility] ([facility])[address] [place] [address] 77436 Chloride [Moles/Vol] 99 mmol/L Normal 98-107 [facility] Comment on above: Performed By: #### 2 4321-2 ####IRVIN MUNGUIA ([id number])[facility] ([facility])[address] [place] [address] 59075 CO2 [Moles/Vol] 27 mmol/L Normal 21-32 [facility] Comment on above: Performed By: #### 2 4321-2 ####IRVIN MUNGUIA ([id number])[facility] ([facility])[address] [place] [address] 28955 Creatinine [Mass/Vol] 0.70 mg/dL Normal 0.50-1.05 [facility] Comment on above: Performed By: #### 2 4321-2 ####IRVIN MUNGUIA ([id number])[facility] ([facility])[address] [place] [address] 37959 GFR/1.73 sq M.predicted MDRD (S/P/Bld) [Vol rate/Area] mL/min/{1.73_m2} Normal >60 [facility] Comment on above: Result Comment: Calc ulations of estimated GFR are performed using the 2020 CKD-EPI Study Refit equation without the race variable for the IDMS-Traceable creatinine methods.https://jasn.asnjournals.org/content/early/ N.3809069494 Performed By: #### 2 4321-2 ####IRVIN MUNGUIA ([id number])[facility] ([facility])[address] [place] [address] 98311 Glucose [Mass/Vol] 162 mg/dL High 74-99 [facility] Comment on above: Performed By: #### 2 4321-2 ####IRVIN MUNGUIA ([id number])[facility] ([facility])[address] [place] [address] 32785 Potassium [Moles/Vol] 3.6 mmol/L Normal 3.5-5.3 [facility] Comment on above: Performed By: #### 2 4321-2 ####IRVIN MUNGUIA ([id number])[facility] ([facility])[address] [place], [place] [address] Sodium [Moles/Vol] 135 mmol/L Low 136-145 [facility] Comment on above: Performed By: #### 2 4321-2 ####IRVIN MUNGUIA ([id number])[facility] ([facility])[address] [place] [address] 22530 Urea nitrogen [Mass/Vol] 8 mg/dL Normal 6-23 [facility] Comment on above: Performed By: #### 2 4321-2 ####IRVIN MUNGUIA ([id number])[facility] ([facility])[address] [place] [address] CBC panel Auto (Bld)on 02-20 Erythrocyte distribution width (RBC) [Ratio] 14.1 % Normal 11.5-14.5 [facility] Comment on above: Performed By: #### 5 8410-2 ####IRVIN MUNGUIA ([id number])[facility] ([facility])[address] [place], [place] [address] Hematocrit (Bld) [Volume fraction] 33.1 % Low 36.0-46.0 [facility] Comment on above: Performed By: #### 5 8410-2 ####IRVIN MUNGUIA ([id number])[facility] ([facility])[address] [place], [place] [address] Hemoglobin (Bld) [Mass/Vol] 10.1 g/dL Low 12.0-16.0 [facility] Comment on above: Performed By: #### 5 8410-2 ####IRVIN MUNGUIA ([id number])[facility] ([facility])[address] [place] [address] 59774 MCH (RBC) [Entitic mass] 27.4 pg Normal 26.0-34.0 [facility] Comment on above: Performed By: #### 5 8410-2 ####IRVIN MUNGUIA ([id number])[facility] ([facility])[address] [place] [address] 98416 MCHC (RBC) [Mass/Vol] 30.5 g/dL Low 32.0-36.0 [facility] Comment on above: Performed By: #### 5 8410-2 ####IRVIN MUNGUIA ([id number])[facility] ([facility])[address] [place], [place] [address] MCV (RBC) [Entitic vol] 90 fL Normal 80-100 [facility] Comment on above: Performed By: #### 5 8410-2 ####IRVIN MUNGUIA ([id number])[facility] ([facility])[address] [place] [address] 73663 Nucleated RBC/100 WBC (Bld) [Ratio] 0.0 /100 WBCs Normal 0.0-0.0 [facility] Comment on above: Performed By: #### 5 8410-2 ####IRVIN MUNGUIA ([id number])[facility] ([facility])[address] [place] [address] 35959 Platelets (Bld) [#/Vol] 274 x10*3/uL Normal 150-450 [facility] Comment on above: Performed By: #### 5 8410-2 ####IRVIN MUNGUIA ([id number])[facility] ([facility])[address] [place] [address] 61269 RBC (Bld) [#/Vol] 3.69 x10*6/uL Low 4.00-5.20 [facility] Comment on above: Performed By: #### 5 8410-2 ####IRVIN MUNGUIA ([id number])[facility] ([facility])[address] [place] [address] 35942 WBC (Bld) [#/Vol] 7.1 x10*3/uL Normal 4.4-11.3 [facility] Comment on above: Performed By: #### 5 8410-2 ####IRVIN MUNGUIA ([id number])[facility] ([facility])[address] [place] [address] Glucose Test strip manual (B ld) [Mass/Vol]on 02-21-2024 Glucose [Mass/Vol] 155 mg/dL High [address] [place] [address] Comment on above: Performed By: #### 2 341-6 ####IRVIN MUNGUIA ([id number])[facility] ([facility])[address] [place] [address] Glucose [Mass/Vol] 164 mg/dL High [address] [place] [address] Comment on above: Performed By: #### 2 341-6 ####IRVIN MUNGUIA ([id number])[facility] ([facility])[address] [place] [address] Glucose [Mass/Vol] 145 mg/dL High [address] [place] [address] Comment on above: Performed By: #### 2 341-6 ####IRVIN MUNGUIA ([id number])[facility] ([facility])[address] [place] [address] Magnesiumon 02-21-2024 Magnesium [Mass/Vol] 1.68 mg/dL Normal 1.60-2.40 [facility] Comment on above: Performed By: #### 1 9123-9 ####IRVIN MUNGUIA ([id number])[facility] ([facility])[address] [place] [address] 56111 CBC panel Auto (Bld)on 02-19 Erythrocyte distribution width (RBC) [Ratio] 13.8 % Normal 11.5-14.5 [facility] Comment on above: Performed By: #### 5 8410-2 ####IRVIN MUNGUIA ([id number])[facility] ([facility])[address] [place] [address] Hematocrit (Bld) [Volume fraction] 31.7 % Low 36.0-46.0 [facility] Comment on above: Performed By: #### 5 8410-2 ####IRVIN MUNGUIA ([id number])[facility] ([facility])[address] [place] [address] 70160 Hemoglobin (Bld) [Mass/Vol] 9.9 g/dL Low 12.0-16.0 [facility] Comment on above: Performed By: #### 5 8410-2 ####IRVIN MUNGUIA ([id number])[facility] ([facility])[address] [place] [address] 53911 MCH (RBC) [Entitic mass] 27.8 pg Normal 26.0-34.0 [facility] Comment on above: Performed By: #### 5 8410-2 ####IRVIN MUNGUIA ([id number])[facility] ([facility])[address] [place] [address] 07561 MCHC (RBC) [Mass/Vol] 31.2 g/dL Low 32.0-36.0 [facility] Comment on above: Performed By: #### 5 8410-2 ####IRVIN MUNGUIA ([id number])[facility] ([facility])[address] [place] [address] 00483 MCV (RBC) [Entitic vol] 89 fL Normal 80-100 [facility] Comment on above: Performed By: #### 5 8410-2 ####IRVIN MUNGUIA ([id number])[facility] ([facility])[address] [place] [address] 67118 Nucleated RBC/100 WBC (Bld) [Ratio] 0.0 /100 WBCs Normal 0.0-0.0 [facility] Comment on above: Performed By: #### 5 8410-2 ####IRVIN MUNGUIA ([id number])[facility] ([facility])[address] [place] [address] 72434 Platelets (Bld) [#/Vol] 269 x10*3/uL Normal 150-450 [facility] Comment on above: Performed By: #### 5 8410-2 ####IRVIN MUNGUIA ([id number])[facility] ([facility])[address] [place] [address] 50347 RBC (Bld) [#/Vol] 3.56 x10*6/uL Low 4.00-5.20 [facility] Comment on above: Performed By: #### 5 8410-2 ####IRVIN MUNGUIA ([id number])[facility] ([facility])[address] [place] [address] 69861 WBC (Bld) [#/Vol] 5.7 x10*3/uL Normal 4.4-11.3 [facility] Comment on above: Performed By: #### 5 8410-2 ####IRVIN MUNGUIA ([id number])[facility] ([facility])[address] [place] [address] Comprehensive metabolic 2000 panelon 02-20-2024 Albumin BCP dye [Mass/Vol] 3.4 g/dL Normal 3.4-5.0 [facility] Comment on above: Performed By: #### 2 4323-8 ####IRVIN MUNGUIA ([id number])[facility] ([facility])[address] [place] [address] 61562 ALP [Catalytic activity/Vol] 200 U/L High 33-110 [facility] Comment on above: Performed By: #### 2 4323-8 ####IRVIN MUNGUIA ([id number])[facility] ([facility])[address] [place] [address] 77773 ALT With P-5'-P [Catalytic activity/Vol] 32 U/L Normal 7-45 [facility] Comment on above: Result Comment: Evelyn ents treated with Sulfasalazine may generate falsely decreased results for ALT. Performed By: #### 2 4323-8 ####IRVIN MUNGUIA ([id number])[facility] ([facility])[address] [place] [address] 37008 Anion gap [Moles/Vol] 12 mmol/L Normal 10-20 [facility] Comment on above: Performed By: #### 2 4323-8 ####IRVIN MUNGUIA ([id number])[facility] ([facility])[address] [place] [address] AST With P-5'-P [Catalytic activity/Vol] 17 U/L Normal 9-39 [facility] Comment on above: Performed By: #### 2 4323-8 ####IRVIN MUNGUIA ([id number])[facility] ([facility])[address] [place] [address] Bilirubin [Mass/Vol] 0.3 mg/dL Normal 0.0-1.2 [facility] Comment on above: Performed By: #### 2 4322-8 ####IRVIN MUNGUIA ([id number])[facility] ([facility])[address] [place] [address] 46060 Calcium [Mass/Vol] 8.6 mg/dL Normal 8.6-10.3 [facility] Comment on above: Performed By: #### 2 4322-8 ####IRVIN MUNGUIA ([id number])[facility] ([facility])[address] [place] [address] 15179 Chloride [Moles/Vol] 100 mmol/L Normal 98-107 [facility] Comment on above: Performed By: #### 2 432-8 ####IRVIN MUNGUIA ([id number])[facility] ([facility])[address] [place] [address] CO2 [Moles/Vol] 27 mmol/L Normal 21-32 [facility] Comment on above: Performed By: #### 2 4323-8 ####IRVIN MUNGUIA ([id number])[facility] ([facility])[address] [place] [address] 77730 Creatinine [Mass/Vol] 0.60 mg/dL Normal 0.50-1.05 [facility] Comment on above: Performed By: #### 2 4323-8 ####IRVIN MUNGUIA ([id number])[facility] ([facility])[address] [place] [address] 52389 GFR/1.73 sq M.predicted MDRD (S/P/Bld) [Vol rate/Area] mL/min/{1.73_m2} Normal >60 [facility] Comment on above: Result Comment: Calc ulations of estimated GFR are performed using the 2020 CKD-EPI Study Refit equation without the race variable for the IDMS-Traceable creatinine methods.https://jasn.asnjournals.org/content/early/ N.8758731403 Performed By: #### 2 4323-8 ####IRVIN MUNGUIA ([id number])[facility] ([facility])[address] [place] [address] 61424 Glucose [Mass/Vol] 134 mg/dL High 74-99 [facility] Comment on above: Performed By: #### 2 4323-8 ####IRVIN MUNGUIA ([id number])[facility] ([facility])[address] [place] [address] 03086 Potassium [Moles/Vol] 3.4 mmol/L Low 3.5-5.3 [facility] Comment on above: Performed By: #### 2 4323-8 ####IRVIN MUNGUIA ([id number])[facility] ([facility])[address] [place] [address] 64520 Protein [Mass/Vol] 6.7 g/dL Normal 6.4-8.2 [facility] Comment on above: Performed By: #### 2 4323-8 ####IRVIN MUNGUIA ([id number])[facility] ([facility])[address] [place] [address] 23072 Sodium [Moles/Vol] 136 mmol/L Normal 136-145 [facility] Comment on above: Performed By: #### 2 4323-8 ####IRVIN MUNGUIA ([id number])[facility] ([facility])[address] [place] [address] 87173 Urea nitrogen [Mass/Vol] 8 mg/dL Normal 6-23 [facility] Comment on above: Performed By: #### 2 4323-8 ####IRVIN MUNGIUA ([id number])[facility] ([facility])[address] [place] [address] Glucose Test strip manual (B ld) [Mass/Vol]on 02-20-2024 Glucose [Mass/Vol] 130 mg/dL High [address] [place] [address] Comment on above: Performed By: #### 2 341-6 ####IRVIN MUNGUIA ([id number])[facility] ([facility])[address] [place] [address] Glucose [Mass/Vol] 131 mg/dL High [address] [place] [address] Comment on above: Performed By: #### 2 341-6 ####IRVIN MUNGUIA ([id number])[facility] ([facility])[address] [place] [address] Glucose [Mass/Vol] 128 mg/dL High [address] [place] [address] Comment on above: Performed By: #### 2 341-6 ####IRVIN MUNGUIA ([id number])[facility] ([facility])[address] [place] [address] Glucose [Mass/Vol] 138 mg/dL High [address] [place] [address] Comment on above: Performed By: #### 2 341-6 ####IRVIN MUNGUIA ([id number])[facility] ([facility])[address] [place] [address] CBC panel Auto (Bld)on 02-18 Erythrocyte distribution width (RBC) [Ratio] 13.7 % Normal 11.5-14.5 [facility] Comment on above: Performed By: #### 5 8410-2 ####IRVIN MUNGUIA ([id number])[facility] ([facility])[address] [place] [address] Hematocrit (Bld) [Volume fraction] 30.3 % Low 36.0-46.0 [facility] Comment on above: Performed By: #### 5 8410-2 ####IRVIN MUNGUIA ([id number])[facility] ([facility])[address] [place] [address] Hemoglobin (Bld) [Mass/Vol] 9.3 g/dL Low 12.0-16.0 [facility] Comment on above: Performed By: #### 5 8410-2 ####IRVIN MUNGUIA ([id number])[facility] ([facility])[address] [place] [id number] MCH (RBC) [Entitic mass] 27.6 pg Normal 26.0-34.0 [facility] Comment on above: Performed By: #### 5 8410-2 ####IRVIN MUNGUIA ([id number])[facility] ([facility])[address] [place] [id number] MCHC (RBC) [Mass/Vol] 30.7 g/dL Low 32.0-36.0 [facility] Comment on above: Performed By: #### 5 8410-2 ####IRVIN MUNGUIA ([id number])[facility] ([facility])[address] [place], [place] [address] 19060 MCV (RBC) [Entitic vol] 90 fL Normal 80-100 [facility] Comment on above: Performed By: #### 5 8410-2 ####IRVIN MUNGUIA ([id number])[facility] ([facility])[address] [place] [address] 45377 Nucleated RBC/100 WBC (Bld) [Ratio] 0.0 /100 WBCs Normal 0.0-0.0 [facility] Comment on above: Performed By: #### 5 8410-2 ####IRVIN MUNGUIA ([id number])[facility] ([facility])[address] [place] [address] 95243 Platelets (Bld) [#/Vol] 263 x10*3/uL Normal 150-450 [facility] Comment on above: Performed By: #### 5 8410-2 ####IRVIN MUNGUIA ([id number])[facility] ([facility])[address] [place] [address] 30424 RBC (Bld) [#/Vol] 3.37 x10*6/uL Low 4.00-5.20 [facility] Comment on above: Performed By: #### 5 8410-2 ####IRVIN MUNGUIA ([id number])[facility])[address] [place] [address] WBC (Bld) [#/Vol] 5.4 x10*3/uL Normal 4.4-11.3 [facility] Comment on above: Performed By: #### 5 8410-2 ####IRVIN MUNGUIA ([id number])[facility] ([facility])[address] [place] [address] Comprehensive metabolic 2000 panelon 02-19-2024 Albumin BCP dye [Mass/Vol] 3.2 g/dL Low 3.4-5.0 [facility] Comment on above: Performed By: #### 2 4323-8 ####IRVIN MUNGUIA ([id number])[facility] ([facility])[address] [place] [address] ALP [Catalytic activity/Vol] 204 U/L High 33-110 [facility] Comment on above: Performed By: #### 2 4323-8 ####IRVIN MUNGUIA ([id number])[facility])[address] [place] [address] 75826 ALT With P-5'-P [Catalytic activity/Vol] 39 U/L Normal 7-45 [facility] Comment on above: Result Comment: Evelyn ents treated with Sulfasalazine may generate falsely decreased results for ALT. Performed By: #### 2 4323-8 ####IRVIN MUNGUIA ([id number])[facility] ([facility])[address] [place] [address] 95776 Anion gap [Moles/Vol] 11 mmol/L Normal 10-20 [facility] Comment on above: Performed By: #### 2 4323-8 ####IRVIN MUNGUIA ([id number])[facility])[address] [place] [address] 71524 AST With P-5'-P [Catalytic activity/Vol] 32 U/L Normal 9-39 [facility] Comment on above: Performed By: #### 2 4323-8 ####IRVIN MUNGUIA ([id number])[facility])[address] [place] [address] Bilirubin [Mass/Vol] 0.3 mg/dL Normal 0.0-1.2 [facility] Comment on above: Performed By: #### 2 4323-8 ####IRVIN MUNGUIA ([id number])[facility])[address] [place] [address] 11452 Calcium [Mass/Vol] 8.0 mg/dL Low 8.6-10.3 [facility] Comment on above: Performed By: #### 2 4323-8 ####IRVIN MUNGUIA ([id number])[facility])[address] [place] [address] 72824 Chloride [Moles/Vol] 104 mmol/L Normal 98-107 [facility] Comment on above: Performed By: #### 2 4323-8 ####IRVIN MUNGUIA ([id number])[facility])[address] [place] [address] 58921 CO2 [Moles/Vol] 24 mmol/L Normal 21-32 [facility] Comment on above: Performed By: #### 2 4323-8 ####IRVIN MUNGUIA ([id number])[facility])[address] [place] [address] 74521 Creatinine [Mass/Vol] 0.57 mg/dL Normal 0.50-1.05 [facility] Comment on above: Performed By: #### 2 4323-8 ####IRVIN MUNGUIA ([id number])[facility])[address] [place] [address] 18755 GFR/1.73 sq M.predicted MDRD (S/P/Bld) [Vol rate/Area] mL/min/{1.73_m2} Normal >60 [facility] Comment on above: Result Comment: Calc ulations of estimated GFR are performed using the 2020 CKD-EPI Study Refit equation without the race variable for the IDMS-Traceable creatinine methods.https://jasn.asnjournals.org/content//22/ N.8391384392 Performed By: #### 2 4323-8 ####IRVIN MUNGUIA ([id number])[facility])[address] [place] [address] 30938 Glucose [Mass/Vol] 137 mg/dL High 74-99 [facility] Comment on above: Performed By: #### 2 4323-8 ####IRVIN MUNGUIA ([id number])[facility])[address] [place] [address] 41519 Potassium [Moles/Vol] 3.3 mmol/L Low 3.5-5.3 [facility] Comment on above: Performed By: #### 2 4323-8 ####IRVIN MUNGUIA ([id number])[facility])[address] [place] [address] 40866 Protein [Mass/Vol] 6.3 g/dL Low 6.4-8.2 [facility] Comment on above: Performed By: #### 2 4323-8 ####IRVIN MUNGUIA ([id number])[facility])[address] [place] [address] 46341 Sodium [Moles/Vol] 136 mmol/L Normal 136-145 [facility] Comment on above: Performed By: #### 2 4323-8 ####IRVIN MUNGUIA ([id number])[facility])[address] [place] [address] 50641 Urea nitrogen [Mass/Vol] 8 mg/dL Normal 6-23 [facility] Comment on above: Performed By: #### 2 4323-8 ####IRVIN MUNGUIA ([id number])[facility])[address] [place] [address] 36471 ESR Westergren method (Bld) [Velocity]on 02-19-2024 ESR (Bld) [Velocity] 63 mm/h High 0-20 [facility] Comment on above: Performed By: #### 4 537-7 ####IRVIN MUNGUIA ([id number])[facility])[address] [place] [address] 71795 Glucose Test strip manual (B ld) [Mass/Vol]on 02-19-2024 Glucose [Mass/Vol] 135 mg/dL High [address] [place] [address] Comment on above: Performed By: #### 2 341-6 ####IRVIN MUNGUIA ([id number])[facility])[address] [place] [address] 77895 Glucose [Mass/Vol] 185 mg/dL High [address] [place] [address] Comment on above: Performed By: #### 2 341-6 ####IRVIN MUNGUIA ([id number])[facility])[address] [place] [address] 66714 Glucose [Mass/Vol] 143 mg/dL High [address] [place] [address] Comment on above: Performed By: #### 2 341-6 ####IRVIN MUNGUIA ([id number])[facility])[address] [place] [address] 93557 Glucose [Mass/Vol] 119 mg/dL High [address] [place] [address] Comment on above: Performed By: #### 2 341-6 ####IRVIN MUNGUIA ([id number])[facility])[address] [place] [address] 76836 Triacylglycerol lipaseon Lipase [Catalytic activity/Vol] 27 U/L Normal 9-82 [facility] Comment on above: Order Comment: Venip uncture immediately after or during the administration of Metamizole may lead to falsely low results. Testing should be performed immediately prior to Metamizole dosing. Performed By: #### 3 040-3 ####IRVIN MUNGUIA ([id number])[facility])[address] [place] [address] 77373 Glucose Test strip manual (B ld) [Mass/Vol]on 02-18-2024 Glucose [Mass/Vol] 151 mg/dL High [address] [place] [address] Comment on above: Performed By: #### 2 341-6 ####IRVIN MUNGUIA ([id number])[facility])[address] [place] [address] Glucose [Mass/Vol] 126 mg/dL High 7499 [facility] Comment on above: Performed By: #### 2 341-6 ####IRVIN MUNGUIA ([id number])[facility])[address] [place] [address] Glucose [Mass/Vol] 163 mg/dL High 74-99 [facility] Comment on above: Performed By: #### 2 341-6 ####IRVIN MUNGUIA ([id number])[facility])[address] [place] [address] Glucose [Mass/Vol] 145 mg/dL High [address] [place] [address] Comment on above: Performed By: #### 2 341-6 ####IRVIN MUNGUIA ([id number])[facility])[address] [place] [address] Amylaseon 02-17-2024 Amylase [Catalytic activity/Vol] 12 U/L Low 29-103 [facility] Comment on above: Performed By: #### 1 798-8 ####IRVIN MUNGUIA ([id number])[facility])[address] [place] [address] CBC panel Auto (Bld)on 02-16 Erythrocyte distribution width (RBC) [Ratio] 13.7 % Normal 11.5-14.5 [facility] Comment on above: Performed By: #### 5 8410-2 ####IRVIN MUNGUIA ([id number])[facility])[address] [place] [address] Hematocrit (Bld) [Volume fraction] 32.0 % Low 36.0-46.0 [facility] Comment on above: Performed By: #### 5 8410-2 ####IRVIN MUNGUIA ([id number])[facility])[address] [place] [address] Hemoglobin (Bld) [Mass/Vol] 9.7 g/dL Low 12.0-16.0 [facility] Comment on above: Performed By: #### 5 8410-2 ####IRVIN MUNGUIA ([id number])[facility])[address] [place] [address] 88585 MCH (RBC) [Entitic mass] 27.6 pg Normal 26.0-34.0 [facility] Comment on above: Performed By: #### 5 8410-2 ####IRVIN MUNGUIA ([id number])[facility])[address] [place] [address] 98349 MCHC (RBC) [Mass/Vol] 30.3 g/dL Low 32.0-36.0 [facility] Comment on above: Performed By: #### 5 8410-2 ####IRVIN MUNGUIA ([id number])[facility])[address] [place] [address] 38892 MCV (RBC) [Entitic vol] 91 fL Normal 80-100 [facility] Comment on above: Performed By: #### 5 8410-2 ####IRVIN MUNGUIA ([id number])[facility])[address] [place] [address] 75635 Nucleated RBC/100 WBC (Bld) [Ratio] 0.0 /100 WBCs Normal 0.0-0.0 [facility] Comment on above: Performed By: #### 5 8410-2 ####IRVIN MUNGUIA ([id number])[facility])[address] [place] [address] 90675 Platelets (Bld) [#/Vol] 267 x10*3/uL Normal 150-450 [facility] Comment on above: Performed By: #### 5 8410-2 ####IRVIN MUNGUIA ([id number])[facility])[address] [place] [address] 38208 RBC (Bld) [#/Vol] 3.51 x10*6/uL Low 4.00-5.20 [facility] Comment on above: Performed By: #### 5 8410-2 ####IRVIN MUNGUIA ([id number])[facility])[address] [place] [address] WBC (Bld) [#/Vol] 7.1 x10*3/uL Normal 4.4-11.3 [facility] Comment on above: Performed By: #### 5 8410-2 ####IRVIN MUNGUIA ([id number])[facility])[address] [place] [address] Comprehensive metabolic 2000 panelon 02-17-2024 Albumin BCP dye [Mass/Vol] 3.3 g/dL Low 3.4-5.0 [facility] Comment on above: Performed By: #### 2 4323-8 ####IRVIN MUNGUIA ([id number])[facility])[address] [place] [address] ALP [Catalytic activity/Vol] 197 U/L High 33-110 [facility] Comment on above: Performed By: #### 2 4323-8 ####IRVIN MUNGUIA ([id number])[facility])[address] [place] [address] 14171 ALT With P-5'-P [Catalytic activity/Vol] 43 U/L Normal 7-45 [facility] Comment on above: Result Comment: Evelyn ents treated with Sulfasalazine may generate falsely decreased results for ALT. Performed By: #### 2 4323-8 ####IRVIN MUNGUIA ([id number])[facility])[address] [place], [place] [address] Anion gap [Moles/Vol] 10 mmol/L Normal 10-20 [facility] Comment on above: Performed By: #### 2 4323-8 ####IRVIN MUNGUIA ([id number])[facility])[address] [place], [place] [address] AST With P-5'-P [Catalytic activity/Vol] 56 U/L High 9-39 [facility] Comment on above: Performed By: #### 2 4323-8 ####IRVIN MUNGUIA ([id number])[facility])[address] [place] [address] Bilirubin [Mass/Vol] 0.3 mg/dL Normal 0.0-1.2 [facility] Comment on above: Performed By: #### 2 4323-8 ####IRVIN MUNGUIA ([id number])[facility])[address] [place] [address] 96917 Calcium [Mass/Vol] 8.4 mg/dL Low 8.6-10.3 [facility] Comment on above: Performed By: #### 2 4323-8 ####IRVIN MUNGUIA ([id number])[facility])[address] [place] [address] 80713 Chloride [Moles/Vol] 104 mmol/L Normal 98-107 [facility] Comment on above: Performed By: #### 2 4323-8 ####IRVIN MUNGUIA ([id number])[facility])[address] [place] [address] 79540 CO2 [Moles/Vol] 26 mmol/L Normal 21-32 [facility] Comment on above: Performed By: #### 2 4323-8 ####IRVIN MUNGUIA ([id number])[facility])[address] [place] [address] Creatinine [Mass/Vol] 0.59 mg/dL Normal 0.50-1.05 [facility] Comment on above: Performed By: #### 2 4323-8 ####IRVIN MUNGUIA ([id number])[facility])[address] [place] [address] 68623 GFR/1.73 sq M.predicted MDRD (S/P/Bld) [Vol rate/Area] mL/min/{1.73_m2} Normal >60 [facility] Comment on above: Result Comment: Calc ulations of estimated GFR are performed using the 2020 CKD-EPI Study Refit equation without the race variable for the IDMS-Traceable creatinine methods.https://jasn.asnjournals.org/content/early/ N.5707536673 Performed By: #### 2 4323-8 ####IRVIN MUNGUIA ([id number])[facility])[address] [place] [address] 92335 Glucose [Mass/Vol] 129 mg/dL High 74-99 [facility] Comment on above: Performed By: #### 2 4323-8 ####IRVIN MUNGUIA ([id number])[facility])[address] [place] [address] 97306 Potassium [Moles/Vol] 4.0 mmol/L Normal 3.5-5.3 [facility] Comment on above: Performed By: #### 2 4323-8 ####IRVIN MUNGUIA ([id number])[facility])[address] [place] [address] 14391 Protein [Mass/Vol] 6.6 g/dL Normal 6.4-8.2 [facility] Comment on above: Performed By: #### 2 4323-8 ####IRVIN MUNGUIA ([id number])[facility])[address] [place] [address] 75704 Sodium [Moles/Vol] 136 mmol/L Normal 136-145 [facility] Comment on above: Performed By: #### 2 4323-8 ####IRVIN MUNGUIA ([id number])[facility])[address] [place] [address] 45958 Urea nitrogen [Mass/Vol] 10 mg/dL Normal 6-23 [facility] Comment on above: Performed By: #### 2 4323-8 ####IRVIN MUNGUIA ([id number])[facility])[address] [place] [address] 30812 Glucose Test strip manual (B ld) [Mass/Vol]on 02-17-2024 Glucose [Mass/Vol] 147 mg/dL High 74-99 [facility] Comment on above: Performed By: #### 2 341-6 ####IRVIN MUNGUIA ([id number])[facility])[address] [place] [address] 59676 Glucose [Mass/Vol] 125 mg/dL High [address] [place] [address] Comment on above: Performed By: #### 2 341-6 ####IRVIN MUNGUIA ([id number])[facility])[address] [place] [address] 29220 Glucose [Mass/Vol] 147 mg/dL High [address] [place] [address] Comment on above: Performed By: #### 2 341-6 ####IRVIN MUNGUIA ([id number])[facility])[address] [place] [address] 99572 Glucose [Mass/Vol] 119 mg/dL High [address] [place] [address] Comment on above: Performed By: #### 2 341-6 ####IRVIN MUNGUIA ([id number])[facility])[address] [place] [address] 52098 Glucose [Mass/Vol] 148 mg/dL High [address] [place] [address] Comment on above: Performed By: #### 2 341-6 ####IRVIN MUNGUIA ([id number])[facility])[address] [place] [address] 48732 Triacylglycerol lipaseon Lipase [Catalytic activity/Vol] 12 U/L Normal 9-82 [facility] Comment on above: Order Comment: Venip uncture immediately after or during the administration of Metamizole may lead to falsely low results. Testing should be performed immediately prior to Metamizole dosing. Performed By: #### 3 040-3 ####IRVIN MUNGUIA ([id number])[facility])[address] [place] [address] 95871 Basic metabolic 2000 panelon 02-16-2024 Anion gap [Moles/Vol] 13 mmol/L Normal 10-20 [facility] Comment on above: Performed By: #### 2 4321-2 ####IRVIN MUNGUIA ([id number])[facility])[address] [place] [address] 59429 Calcium [Mass/Vol] 8.5 mg/dL Low 8.6-10.3 [facility] Comment on above: Performed By: #### 2 4321-2 ####IRVIN MUNGUIA ([id number])[facility])[address] [place] [address] 16946 Chloride [Moles/Vol] 99 mmol/L Normal 98-107 [facility] Comment on above: Performed By: #### 2 4321-2 ####IRVIN MUNGUIA ([id number])[facility])[address] [place] [address] 74003 CO2 [Moles/Vol] 26 mmol/L Normal 21-32 [facility] Comment on above: Performed By: #### 2 4321-2 ####IRVIN MUNGUIA ([id number])[facility])[address] [place] [address] 17612 Creatinine [Mass/Vol] 0.69 mg/dL Normal 0.50-1.05 [facility] Comment on above: Performed By: #### 2 4321-2 ####IRVIN MUNGUIA ([id number])[facility])[address] [place] [address] 94434 GFR/1.73 sq M.predicted MDRD (S/P/Bld) [Vol rate/Area] mL/min/{1.73_m2} Normal >60 [facility] Comment on above: Result Comment: Calc ulations of estimated GFR are performed using the 2020 CKD-EPI Study Refit equation without the race variable for the IDMS-Traceable creatinine methods.https://jasn.asnjournals.org/content/early/ N.6110185247 Performed By: #### 2 4321-2 ####IRVIN MUNGUIA ([id number])[facility])[address] [place] [address] 69996 Glucose [Mass/Vol] 160 mg/dL High 74-99 [facility] Comment on above: Performed By: #### 2 4321-2 ####IRVIN MUNGUIA ([id number])[facility])[address] [place] [address] 15866 Potassium [Moles/Vol] 3.9 mmol/L Normal 3.5-5.3 [facility] Comment on above: Performed By: #### 2 4321-2 ####IRVIN MUNGUIA ([id number])[facility])[address] [place] [address] Sodium [Moles/Vol] 134 mmol/L Low 136-145 [facility] Comment on above: Performed By: #### 2 4321-2 ####IRVIN MUNGUIA ([id number])[facility])[address] [place] [address] Urea nitrogen [Mass/Vol] 10 mg/dL Normal 6-23 [facility] Comment on above: Performed By: #### 2 432-2 ####IRVIN MUNGUIA ([id number])[facility])[address] [place] [address] 94680 CBC W Auto Differential pane l (Bld)on 02-16-2024 Basophils (Bld) [#/Vol] 0.06 x10*3/uL Normal 0.00-0.10 [facility] Comment on above: Performed By: #### 5 7021-8 ####IRVIN MUNGUIA ([id number])[facility])[address] [place] [address] 80552 Basophils/100 WBC (Bld) 0.6 % Normal 0.0-2.0 [facility] Comment on above: Performed By: #### 5 7021-8 ####IRVIN MUNGUIA ([id number])[facility])[address] [place] [address] 06213 Eosinophils (Bld) [#/Vol] 0.10 x10*3/uL Normal 0.00-0.70 [facility] Comment on above: Performed By: #### 5 7021-8 ####IRVIN MUNGUIA ([id number])[facility])[address] [place] [address] 55618 Eosinophils/100 WBC (Bld) 1.0 % Normal 0.0-6.0 [facility] Comment on above: Performed By: #### 5 7021-8 ####IRVIN MUNGUIA ([id number])[facility])[address] [place] [address] 60926 Erythrocyte distribution width (RBC) [Ratio] 13.9 % Normal 11.5-14.5 [facility] Comment on above: Performed By: #### 5 7021-8 ####IRVIN MUNGUIA ([id number])[facility])[address] [place] [address] 83222 Hematocrit (Bld) [Volume fraction] 33.5 % Low 36.0-46.0 [facility] Comment on above: Performed By: #### 5 7021-8 ####IRVIN MUNGUIA ([id number])[facility])[address] [place] [address] 40803 Hemoglobin (Bld) [Mass/Vol] 10.5 g/dL Low 12.0-16.0 [facility] Comment on above: Performed By: #### 5 7021-8 ####IRVIN MUNGUIA ([id number])[facility])[address] [place] [address] 91069 Immature granulocytes (Bld) [#/Vol] 0.05 x10*3/uL Normal 0.00-0.70 [facility] Comment on above: Performed By: #### 5 7021-8 ####IRVIN MUNGUIA ([id number])[facility])[address] [place] [address] 50034 Immature granulocytes/100 WBC (Bld) 0.5 % Normal 0.0-0.9 [facility] Comment on above: Result Comment: Debbie ture Granulocyte Count (IG) includes promyelocytes, myelocytes and metamyelocytes but does not include bands. Percent differential counts (%) should be interpreted in the context of the absolute cell counts (cells/UL). Performed By: #### 5 7021-8 ####IRVIN MUNGUIA ([id number])[facility] ([facility])[address] [place] [address] [id number] Lymphocytes (Bld) [#/Vol] 1.32 x10*3/uL Normal 1.20-4.80 [facility] Comment on above: Performed By: #### 5 7021-8 ####IRVIN MUNGUIA ([id number])[facility] ([facility])[address] [place] [address] [id number] Lymphocytes/100 WBC (Bld) 12.9 % Normal 13.0-44.0 [facility] Comment on above: Performed By: #### 5 7021-8 ####RIVIN MUNGUIA ([id number])[facility] ([facility])[address] [place] [address] [id number] MCH (RBC) [Entitic mass] 28.0 pg Normal 26.0-34.0 [facility] Comment on above: Performed By: #### 5 7021-8 ####IRVIN MUNGUIA ([id number])[facility] ([facility])[address] [place] [address] [id number] MCHC (RBC) [Mass/Vol] 31.3 g/dL Low 32.0-36.0 [facility] Comment on above: Performed By: #### 5 7021-8 ####IRVIN MUNGUIA ([id number])[facility] ([facility])[address] [place] [address] [id number] MCV (RBC) [Entitic vol] 89 fL Normal 80-100 [facility] Comment on above: Performed By: #### 5 7021-8 ####IRVIN MUNGUIA ([id number])[facility] ([facility])[address] [place] [address] 91132 Monocytes (Bld) [#/Vol] 0.74 x10*3/uL Normal 0.10-1.00 [facility] Comment on above: Performed By: #### 5 7021-8 ####IRVIN MUNGUIA ([id number])[facility] ([facility])[address] [place] [address] 56623 Monocytes/100 WBC (Bld) 7.2 % Normal 2.0-10.0 [facility] Comment on above: Performed By: #### 5 7021-8 ####IRVIN MUNGUIA ([id number])[facility] ([facility])[address] [place] [address] 77900 Neutrophils (Bld) [#/Vol] 7.97 x10*3/uL High 1.20-7.70 [facility] Comment on above: Result Comment: Perc ent differential counts (%) should be interpreted in the context of the absolute cell counts (cells/uL). Performed By: #### 5 7021-8 ####IRVIN MUNGUIA ([id number])[facility] ([facility])[address] [place] [address] 92992 Neutrophils/100 WBC (Bld) 77.8 % Normal 40.0-80.0 [facility] Comment on above: Performed By: #### 5 7021-8 ####IRVIN MUNGUIA ([id number])[facility] ([facility])[address] [place] [address] 40310 Nucleated RBC/100 WBC (Bld) [Ratio] 0.0 /100 WBCs Normal 0.0-0.0 [facility] Comment on above: Performed By: #### 5 7021-8 ####IRVIN MUNGUIA ([id number])[facility] ([facility])[address] [place] [address] 16137 Platelets (Bld) [#/Vol] 261 x10*3/uL Normal 150-450 [facility] Comment on above: Performed By: #### 5 7021-8 ####IRVIN MUNGUIA ([id number])[facility] ([facility])[address] [place] [address] 02070 RBC (Bld) [#/Vol] 3.75 x10*6/uL Low 4.00-5.20 [facility] Comment on above: Performed By: #### 5 7021-8 ####IRVIN MUNGUIA ([id number])[facility] ([facility])[address] [place] [address] WBC (Bld) [#/Vol] 10.2 x10*3/uL Normal 4.4-11.3 [facility] Comment on above: Performed By: #### 5 7021-8 ####IRVIN MUNGUIA ([id number])[facility] ([facility])[address] [place] [address] Glucose Test strip manual (B ld) [Mass/Vol]on 02-16-2024 Glucose [Mass/Vol] 142 mg/dL High 74-99 [facility] Comment on above: Performed By: #### 2 341-6 ####IRVIN MUNGUIA ([id number])[facility])[address] [place] [address] Glucose [Mass/Vol] 128 mg/dL High 74-99 [facility] Comment on above: Performed By: #### 2 341-6 ####IRVIN MUNGUIA ([id number])[facility] ([facility])[address] [place] [address] Lactateon 02-16-2024 Lactate [Moles/Vol] 0.9 mmol/L Normal 0.4-2.0 [facility] Comment on above: Order Comment: Venip uncture immediately after or during the administration of Metamizole may lead to falsely low results. Testing should be performed immediatelyprior to Metamizole dosing. Performed By: #### 2 524-7 ####IRVIN MUNGUIA ([id number])[facility] ([facility])[address] [place] [address] Magnesiumon 02-16-2024 Magnesium [Mass/Vol] 1.81 mg/dL Normal 1.60-2.40 [facility] Comment on above: Performed By: #### 1 9123-9 ####IRVIN MUNGUIA ([id number])[facility] ([facility])[address] [place], [place] [address] Urinalysis complete W Reflex Culture panel (U)on 02-16-2024 Appearance (U) Clear Normal Clear [facility] Comment on above: Performed By: #### 5 8077-9 ####IRVIN MUNGUIA ([id number])[facility])[address] [place] [address] Bilirubin (U) [Mass/Vol] Negative Normal NEGATIVE [facility] Comment on above: Performed By: #### 5 8077-9 ####IRVIN MUNGUIA ([id number])[facility] ([facility])[address] [place] [address] Color (U) Straw Normal Straw, Yellow [facility] Comment on above: Performed By: #### 5 8077-9 ####IRVIN MUNGUIA ([id number])[facility] ([facility])[address] [place] [address] Glucose Auto test strip (U) [Mass/Vol] Negative Normal NEGATIVE [facility] Comment on above: Performed By: #### 5 8077-9 ####IRVIN MUNGUIA ([id number])[facility] ([facility])[address] [place] [address] Ketones (U) [Mass/Vol] Negative Normal NEGATIVE [facility] Comment on above: Performed By: #### 5 8077-9 ####IRVIN MUNGUIA ([id number])[facility] ([facility])[address] [place] [address] Leukocyte esterase Auto test strip Ql (U) Negative Normal NEGATIVE [facility] Comment on above: Performed By: #### 5 8077-9 ####IRVIN MUNGUIA ([id number])[facility] ([facility])[address] [place] [address] Nitrite Auto test strip Ql (U) Negative Normal NEGATIVE [facility] Comment on above: Performed By: #### 5 8077-9 ####IRVIN MUNGUIA ([id number])[facility] ([facility])[address] [place], [place] [address] pH (U) 7.0 [pH] Normal 5.0, 5.5, 6.0, 6.5, 7.0, 7.5, 8.0 [facility] Comment on above: Performed By: #### 5 8077-9 ####IRVIN MUNGUIA ([id number])[facility] ([facility])[address] [place] [address] 09231 Protein (U) [Mass/Vol] Negative Normal NEGATIVE [facility] Comment on above: Performed By: #### 5 8077-9 ####IRVIN MUNGUIA ([id number])[facility])[address] [place] [address] 96085 RBC (U) [#/Vol] Negative Normal NEGATIVE [facility] Comment on above: Performed By: #### 5 8077-9 ####IRVIN MUNGUIA ([id number])[facility] ([facility])[address] [place] [address] Specific gravity (U) [Rel density] 1.028 Normal 1.005-1.035 [facility] Comment on above: Performed By: #### 5 8077-9 ####IRVIN MUNGUIA ([id number])[facility] ([facility])[address] [place] [address] 89176 Urobilinogen (U) [Mass/Vol] mg/dL Normal <2.0 [facility] Comment on above: Performed By: #### 5 8077-9 ####IRVIN MUNGUIA ([id number])[facility] ([facility])[address] [place] [address] 28676 Bacteria identifiedon 2023 Bacteria identified Cx Nom (Bld) [facility] Comment on above: Performed By: #### 6 00-7 ####ANDI Cotter ([id number])[facility] ([facility])[id number] [place] [address] 21035 Bacteria identified Cx Nom (Bld) [facility] Comment on above: Performed By: #### 6 00-7 ####ANDI Cotter ([id number])[facility] ([facility])[address] [place] [address] 12137 CBC W Auto Differential pane l (Bld)on 02-15-2024 Basophils (Bld) [#/Vol] 0.04 x10*3/uL Normal 0.00-0.10 [facility] Comment on above: Performed By: #### 5 7021-8 ####IRVIN MUNGUIA ([id number])[facility])[address] [place] [address] 72578 Basophils/100 WBC (Bld) 0.3 % Normal 0.0-2.0 [facility] Comment on above: Performed By: #### 7021-8 ####IRVIN MUNGUIA ([id number])[facility] ([facility])[address] [place] [address] 18001 Eosinophils (Bld) [#/Vol] 0.08 x10*3/uL Normal 0.00-0.70 [facility] Comment on above: Performed By: #### 5 7021-8 ####IRVIN MUNGUIA ([id number])[facility] ([facility])[address] [place] [address] 66980 Eosinophils/100 WBC (Bld) 0.6 % Normal 0.0-6.0 [facility] Comment on above: Performed By: #### 7021-8 ####IRVIN MUNGUIA ([id number])[facility] ([facility])[address] [place] [address] 85210 Erythrocyte distribution width (RBC) [Ratio] 13.9 % Normal 11.5-14.5 [facility] Comment on above: Performed By: #### 5 7021-8 ####IRVIN MUNGUIA ([id number])[facility] ([facility])[address] [place] [address] 54035 Hematocrit (Bld) [Volume fraction] 33.9 % Low 36.0-46.0 [facility] Comment on above: Performed By: #### 5 7021-8 ####IRVIN MUNGUIA ([id number])[facility])[address] [place] [address] 28957 Hemoglobin (Bld) [Mass/Vol] 10.6 g/dL Low 12.0-16.0 [facility] Comment on above: Performed By: #### 7021-8 ####IRVIN MUNGUIA ([id number])[facility] ([facility])[address] [place] [address] 09652 Immature granulocytes (Bld) [#/Vol] 0.06 x10*3/uL Normal 0.00-0.70 [facility] Comment on above: Performed By: #### 5 7021-8 ####IRVIN MUNGUIA ([id number])[facility] ([facility])[address] [place] [address] 47897 Immature granulocytes/100 WBC (Bld) 0.5 % Normal 0.0-0.9 [facility] Comment on above: Result Comment: Debbie ture Granulocyte Count (IG) includes promyelocytes, myelocytes and metamyelocytes but does not include bands. Percent differential counts (%) should be interpreted in the context of the absolute cell counts (cells/UL). Performed By: #### 5 7021-8 ####IRVIN MUNGUIA ([id number])[facility] ([facility])[address] [place] [address] 12501 Lymphocytes (Bld) [#/Vol] 2.16 x10*3/uL Normal 1.20-4.80 [facility] Comment on above: Performed By: #### 5 7021-8 ####IRVIN MUNGUIA ([id number])[facility] ([facility])[address] [place] [address] 65127 Lymphocytes/100 WBC (Bld) 17.0 % Normal 13.0-44.0 [facility] Comment on above: Performed By: #### 5 7021-8 ####IRVIN MUNGUIA ([id number])[facility] ([facility])[address] [place] [address] 02965 MCH (RBC) [Entitic mass] 27.8 pg Normal 26.0-34.0 [facility] Comment on above: Performed By: #### 5 7021-8 ####IRVIN MUNGUIA ([id number])[facility] ([facility])[address] [place] [address] 70983 MCHC (RBC) [Mass/Vol] 31.3 g/dL Low 32.0-36.0 [facility] Comment on above: Performed By: #### 5 7021-8 ####IRVIN MUNGUIA ([id number])[facility] ([facility])[address] [place] [address] 59718 MCV (RBC) [Entitic vol] 89 fL Normal 80-100 [facility] Comment on above: Performed By: #### 5 7021-8 ####IRVIN MUNGUIA ([id number])[facility] ([facility])[address] [place] [address] 48374 Monocytes (Bld) [#/Vol] 0.82 x10*3/uL Normal 0.10-1.00 [facility] Comment on above: Performed By: #### 5 7021-8 ####IRVIN MUNGUIA ([id number])[facility] ([facility])[address] [place] [address] 00069 Monocytes/100 WBC (Bld) 6.4 % Normal 2.0-10.0 [facility] Comment on above: Performed By: #### 5 7021-8 ####IRVIN MUNGUIA ([id number])[facility] ([facility])[address] [place] [address] 70288 Neutrophils (Bld) [#/Vol] 9.58 x10*3/uL High 1.20-7.70 [facility] Comment on above: Result Comment: Perc ent differential counts (%) should be interpreted in the context of the absolute cell counts (cells/uL). Performed By: #### 5 7021-8 ####IRVIN MUNGUIA ([id number])[facility] ([facility])[address] [place] [address] 82501 Neutrophils/100 WBC (Bld) 75.2 % Normal 40.0-80.0 [facility] Comment on above: Performed By: #### 5 7021-8 ####IRVIN MUNGUIA ([id number])[facility] ([facility])[address] [place] [address] 55219 Nucleated RBC/100 WBC (Bld) [Ratio] 0.0 /100 WBCs Normal 0.0-0.0 [facility] Comment on above: Performed By: #### 5 7021-8 ####IRVIN MUNGUIA ([id number])[facility] ([facility])[address] [place] [address] Platelets (Bld) [#/Vol] 291 x10*3/uL Normal 150-450 [facility] Comment on above: Performed By: #### 5 7021-8 ####IRVIN MUNGUIA ([id number])[facility] ([facility])[address] [place] [address] RBC (Bld) [#/Vol] 3.81 x10*6/uL Low 4.00-5.20 [facility] Comment on above: Performed By: #### 5 7021-8 ####IRVIN MUNGUIA ([id number])[facility] ([facility])[address] [place] [address] WBC (Bld) [#/Vol] 12.7 x10*3/uL High 4.4-11.3 [facility] Comment on above: Performed By: #### 5 7021-8 ####IRVIN MUNGUIA ([id number])[facility])[address] [place] [address] CT ABDOMEN PELVIS W IV CONTR Reny 02-15-2024 CT ABDOMEN PELVIS W IV CONTRAST Normal [facility] Comprehensive metabolic 2000 panelon 02-15-2024 Albumin BCP dye [Mass/Vol] 3.6 g/dL Normal 3.4-5.0 [facility] Comment on above: Performed By: #### 2 4323-8 ####IRVIN MUNGUIA ([id number])[facility] ([facility])[address] [place], [place] [address] ALP [Catalytic activity/Vol] 163 U/L High 33-110 [facility] Comment on above: Performed By: #### 2 4323-8 ####IRVIN MUNGUIA ([id number])[facility] ([facility])[address] [place] [address] ALT With P-5'-P [Catalytic activity/Vol] 26 U/L Normal 7-45 [facility] Comment on above: Result Comment: Evelyn ents treated with Sulfasalazine may generate falsely decreased results for ALT. Performed By: #### 2 4323-8 ####IRVIN MUNGUIA ([id number])[facility] ([facility])[address] [place] [address] Anion gap [Moles/Vol] 15 mmol/L Normal 10-20 [facility] Comment on above: Performed By: #### 2 4323-8 ####IRVIN MUNGUIA ([id number])[facility] ([facility])[address] [place] [address] 95932 AST With P-5'-P [Catalytic activity/Vol] 17 U/L Normal 9-39 [facility] Comment on above: Performed By: #### 2 432-8 ####IRVIN MUNGUIA ([id number])[facility])[address] [place] [address] 40074 Bilirubin [Mass/Vol] 0.2 mg/dL Normal 0.0-1.2 [facility] Comment on above: Performed By: #### 2 432-8 ####IRVIN MUNGUIA ([id number])[facility] ([facility])[address] [place] [address] 54733 Calcium [Mass/Vol] 8.6 mg/dL Normal 8.6-10.3 [facility] Comment on above: Performed By: #### 2 4323-8 ####IRVIN MUNGUIA ([id number])[facility] ([facility])[address] [place] [address] 29281 Chloride [Moles/Vol] 96 mmol/L Low 98-107 [facility] Comment on above: Performed By: #### 2 4323-8 ####IRVIN MUNGUIA ([id number])[facility])[address] [place] [address] 75861 CO2 [Moles/Vol] 25 mmol/L Normal 21-32 [facility] Comment on above: Performed By: #### 2 4323-8 ####IRVIN MUNGUIA ([id number])[facility] [place] [address] Creatinine [Mass/Vol] 0.68 mg/dL Normal 0.50-1.05 [facility] Comment on above: Performed By: #### 2 4323-8 ####IRVIN MUNGUIA ([id number])[facility])[address] [place] [address] 52531 GFR/1.73 sq M.predicted MDRD (S/P/Bld) [Vol rate/Area] mL/min/{1.73_m2} Normal >60 [facility] Comment on above: Result Comment: Calc ulations of estimated GFR are performed using the 2020 CKD-EPI Study Refit equation without the race variable for the IDMS-Traceable creatinine methods.https://jasn.asnjournals.org/content/early// N.1966450775 Performed By: #### 2 4323-8 ####IRVIN MUNGUIA ([id number])[facility] ([facility])[address] [place] [address] 43290 Glucose [Mass/Vol] 166 mg/dL High 74-99 [facility] Comment on above: Performed By: #### 2 4323-8 ####IRVIN MUNGUIA ([id number])[facility])[address] [place] [address] 86701 Potassium [Moles/Vol] 3.6 mmol/L Normal 3.5-5.3 [facility] Comment on above: Performed By: #### 2 4323-8 ####IRVIN MUNGUIA ([id number])[facility])[address] [place] [address] 41369 Protein [Mass/Vol] 7.2 g/dL Normal 6.4-8.2 [facility] Comment on above: Performed By: #### 2 4323-8 ####IRVIN MUNGUIA ([id number])[facility] ([facility])[address] [place] [address] 82194 Sodium [Moles/Vol] 132 mmol/L Low 136-145 [facility] Comment on above: Performed By: #### 2 4323-8 ####IRVIN MUNGUIA ([id number])[facility] ([facility])[address] [place] [address] Urea nitrogen [Mass/Vol] 12 mg/dL Normal 6-23 [facility] Comment on above: Performed By: #### 2 4323-8 ####IRVIN MUNGUIA ([id number])[facility] ([facility])[address] [place] [address] ECG 12-LEADon 02-15-2024 ECG 12-LEAD Ventricular Rate 102 Atrial Rate 102 P-R Interval 140 QRS Duration 84 Q-T Interval 346 QTC Calculation(Bazett) 450 P [place] 52 R [place] 27 T [place] 61 QRS Count 17 Q Onset 225 P Onset 155 P Offset 209 T Offset 398 QTC Fredericia 412 Diagnosis Sinus tachycardia Otherwise normal ECG When compared with ECG of 04-FEB-2024 18:58, No significant change was found See ED provider note for full interpretation and clinical correlation Confirmed by Sally Bourgeois ([id number]) on 02/18/2024 8:59:01 PM Normal [facility] LABORATORYOrdered By: Huber Estevez on 02-15-2024 Albumin DL <= 20 mg/L (U) [Mass/Vol] 591 mcg/dL Invalid Interpretation Code AO ADM SS Albumin/Creatinine DL <= 20 mg/L (U) [Mass ratio] 8 mcg/mg Normal 0 - 30 mcg/mg AO ADM SS Creatinine (U) [Mass/Vol] 75.9 mg/dL Normal 28.0 - 117.0 mg/dL AO ADM SS Lactateon 02-15-2024 Lactate [Moles/Vol] 2.0 mmol/L Normal 0.4-2.0 [facility] Comment on above: Order Comment: Venip uncture immediately after or during the administration of Metamizole may lead to falsely low results. Testing should be performed immediatelyprior to Metamizole dosing. Performed By: #### 2 524-7 ####IRVIN MUNGUIA ([id number])[facility] ([facility])[address] [place] [address] MALBRon 02-15-2024 U Creatinine 75.9 mg/dL Normal 28.0-117.0 [facility] ([place]) Comment on above: Performed By: #### A DIFF, ANEU, CMP, MG, GFR, LD, CRP, CBC, ESR #### [address] [address] U Microalb 591 mcg/dL Normal [facility] ([place]) Comment on above: Performed By: #### A DIFF, ANEU, CMP, MG, GFR, LD, CRP, CBC, ESR #### [address] [place], [place] [address] U Ratio Alb/Cre 8 mcg/mg Normal 0-30 [facility] ([place]) Comment on above: Performed By: #### A DIFF, ANEU, CMP, MG, GFR, LD, CRP, CBC, ESR #### [address] [place], [place] [address] Magnesiumon 02-15-2024 Magnesium [Mass/Vol] 1.80 mg/dL Normal 1.60-2.40 [facility] Comment on above: Performed By: #### 1 9123-9 ####IRVIN MUNGUIA ([id number])[facility] ([facility])[address] [place] [address] 48341 Triacylglycerol lipaseon Lipase [Catalytic activity/Vol] 42 U/L Normal 9-82 [facility] Comment on above: Order Comment: Venip uncture immediately after or during the administration of Metamizole may lead to falsely low results. Testing should be performed immediately prior to Metamizole dosing. Performed By: #### 3 040-3 ####IRVIN MUNGUIA ([id number])[facility] ([facility])[address] [place] [address] 94939 XR CHEST 1 VIEWon 02-15-2024 XR CHEST [address] [facility] CBC W Auto Differential pane l (Bld)on 02-08-2024 Basophils (Bld) [#/Vol] 0.03 x10*3/uL Normal 0.00-0.10 [facility] Comment on above: Performed By: #### 5 7021-8 ####ANDI Cotter ([id number])[facility] ([facility])[id number] [place] [address] 48337 Basophils/100 WBC (Bld) 0.4 % Normal 0.0-2.0 [facility] Comment on above: Performed By: #### 5 7021-8 ####ANDI CHAUDHARY L ([id number])[facility] ([facility])[address] [place] [address] 73446 Eosinophils (Bld) [#/Vol] 0.24 x10*3/uL Normal 0.00-0.70 [facility] Comment on above: Performed By: #### 5 7021-8 ####ANDI CHAUDHARY L ([id number])[facility] ([facility])[address] [place] [address] 95537 Eosinophils/100 WBC (Bld) 3.1 % Normal 0.0-6.0 [facility] Comment on above: Performed By: #### 5 7021-8 ####ANDI Cotter ([id number])[facility] ([facility])[address] [place] [address] 86755 Erythrocyte distribution width (RBC) [Ratio] 13.4 % Normal 11.5-14.5 [facility] Comment on above: Performed By: #### 5 7021-8 ####ANDI Cotter ([id number])[facility] ([facility])[address] [place] [address] 08042 Hematocrit (Bld) [Volume fraction] 29.9 % Low 36.0-46.0 [facility] Comment on above: Performed By: #### 5 7021-8 ####ANDI CHAUDHARY L ([id number])[facility] ([facility])[address] [place] [address] 35759 Hemoglobin (Bld) [Mass/Vol] 9.4 g/dL Low 12.0-16.0 [facility] Comment on above: Performed By: #### 5 7021-8 ####ANDI Cotter ([id number])[facility] ([facility])[address] [place] [address] Immature granulocytes (Bld) [#/Vol] 0.26 x10*3/uL Normal 0.00-0.70 [facility] Comment on above: Performed By: #### 5 7021-8 ####ANDI Cotter ([id number])[facility] ([facility])[address] [place] [address] Immature granulocytes/100 WBC (Bld) 3.4 % High 0.0-0.9 [facility] Comment on above: Result Comment: Debbie ture Granulocyte Count (IG) includes promyelocytes, myelocytes and metamyelocytes but does not include bands. Percent differential counts (%) should be interpreted in the context of the absolute cell counts (cells/UL). Performed By: #### 5 7021-8 ####ANDI Cotter ([id number])[facility] ([facility])[address] [place] [address] Lymphocytes (Bld) [#/Vol] 1.63 x10*3/uL Normal 1.20-4.80 [facility] Comment on above: Performed By: #### 5 7021-8 ####ANDI Cotter ([id number])[facility] ([facility])[address] [place] [address] Lymphocytes/100 WBC (Bld) 21.3 % Normal 13.0-44.0 [facility] Comment on above: Performed By: #### 5 7021-8 ####ANDI Cotter ([id number])[facility] ([facility])[id number] [place] [address] MCH (RBC) [Entitic mass] 28.3 pg Normal 26.0-34.0 [facility] Comment on above: Performed By: #### 5 7021-8 ####ANDI Cotter ([id number])[facility] ([facility])[address] [place] [address] MCHC (RBC) [Mass/Vol] 31.4 g/dL Low 32.0-36.0 [facility] Comment on above: Performed By: #### 5 7021-8 ####ANDI Cotter ([id number])[facility] ([facility])[address] [place] [address] MCV (RBC) [Entitic vol] 90 fL Normal 80-100 [facility] Comment on above: Performed By: #### 5 7021-8 ####ANDI Cotter ([id number])[facility] ([facility])[id number] [place] [address] Monocytes (Bld) [#/Vol] 0.66 x10*3/uL Normal 0.10-1.00 [facility] Comment on above: Performed By: #### 5 7021-8 ####ANDI Cotter ([id number])[facility] ([facility])[address] [place] [address] Monocytes/100 WBC (Bld) 8.6 % Normal 2.0-10.0 [facility] Comment on above: Performed By: #### 5 7021-8 ####ANDI Cotter ([id number])[facility] ([facility])[address] [place] [address] Neutrophils (Bld) [#/Vol] 4.83 x10*3/uL Normal 1.20-7.70 [facility] Comment on above: Result Comment: Perc ent differential counts (%) should be interpreted in the context of the absolute cell counts (cells/uL). Performed By: #### 5 7021-8 ####ANDI Cotter ([id number])[facility] ([facility])[address] [place] [address] Neutrophils/100 WBC (Bld) 63.2 % Normal 40.0-80.0 [facility] Comment on above: Performed By: #### 5 7021-8 ####ANDI RAJPUTMOFIDELINA Cotter ([id number])[facility] ([facility])[address] [place] [address] Nucleated RBC/100 WBC (Bld) [Ratio] 0.0 /100 WBCs Normal 0.0-0.0 [facility] Comment on above: Performed By: #### 5 7021-8 ####ANDI Cotter ([id number])[facility] ([facility])[address] [place] [address] Platelets (Bld) [#/Vol] 329 x10*3/uL Normal 150-450 [facility] Comment on above: Performed By: #### 5 7021-8 ####ANDI Cotter ([id number])[facility] ([facility])[address] [place] [address] RBC (Bld) [#/Vol] 3.32 x10*6/uL Low 4.00-5.20 [facility] Comment on above: Performed By: #### 5 7021-8 ####ANDI Cotter ([id number])[facility] ([facility])[address] [place] [address] WBC (Bld) [#/Vol] 7.7 x10*3/uL Normal 4.4-11.3 [facility] Comment on above: Performed By: #### 5 7021-8 ####ANDI Cotter ([id number])[facility] ([facility])[address] [place] [address] Clostridioides difficile tox in A+B tcdA+tcdB geneson 02-08-2024 C. difficile toxin A+B tcdA+tcdB genes SANNA+probe Ql (Stl) Clostridioides difficile toxin A+B tcdA+tcdB genes Not Detected Normal Not Detected [facility] Comment on above: Order Comment: This test is an FDA-cleared real-time PCR assay for detection of toxigenic C. difficile DNA from unprocessed liquid or unformed stool specimens that have not undergone nucleic acid extraction in symptomatic patients with potential C. difficile infection (CDI). A positive result may indicate colonization, and clinical assessment is required for the diagnosis of CDI. This test cannot be performed on formed stools or used as a test of cure, and should not be performed more than once per 7 days. Performed By: #### 8 0685-1 ####ANDI Cotter ([id number])[facility] ([facility])[address] [place] [address] Comprehensive metabolic 2000 panelon 02-08-2024 Albumin BCP dye [Mass/Vol] 3.4 g/dL Normal 3.4-5.0 [facility] Comment on above: Performed By: #### 2 4323-8 ####ANDI Cotter ([id number])[facility] ([facility])[address] [place] [address] ALP [Catalytic activity/Vol] 168 U/L High 33-110 [facility] Comment on above: Performed By: #### 2 4323-8 ####ANDI Cotter ([id number])[facility] ([facility])[address] [place] [address] ALT With P-5'-P [Catalytic activity/Vol] 37 U/L Normal 7-45 [facility] Comment on above: Result Comment: Evelyn ents treated with Sulfasalazine may generate falsely decreased results for ALT. Performed By: #### 2 4323-8 ####ANDI Cotter ([id number])[facility] ([facility])[address] [place] [address] Anion gap [Moles/Vol] 14 mmol/L Normal 10-20 [facility] Comment on above: Performed By: #### 2 4323-8 ####ANDI Cotter ([id number])[facility] ([facility])[address] [place] [address] AST With P-5'-P [Catalytic activity/Vol] 19 U/L Normal 9-39 [facility] Comment on above: Performed By: #### 2 4323-8 ####ANDI Cotter ([id number])[facility] ([facility])[address] [place] [address] Bilirubin [Mass/Vol] 0.2 mg/dL Normal 0.0-1.2 [facility] Comment on above: Performed By: #### 2 4323-8 ####ANDI Cotter ([id number])[facility] ([facility])[address] [place] [address] Calcium [Mass/Vol] 9.1 mg/dL Normal 8.6-10.6 [facility] Comment on above: Performed By: #### 2 4323-8 ####ANDI CHAUDHARY L ([id number])[facility] ([facility])[address] [place] [address] Chloride [Moles/Vol] 99 mmol/L Normal 98-107 [facility] Comment on above: Performed By: #### 2 4323-8 ####ANDI CHAUDHARY L ([id number])[facility] ([facility])[address] [place] [address] CO2 [Moles/Vol] 28 mmol/L Normal 21-32 [facility] Comment on above: Performed By: #### 2 4323-8 ####ANDI HCAUDHARY L ([id number])[facility] ([facility])[address] [place] [address] Creatinine [Mass/Vol] 0.69 mg/dL Normal 0.50-1.05 [facility] Comment on above: Performed By: #### 2 4323-8 ####ANDI CHAUDHARY L ([id number])[facility] ([facility])[address] [place] [address] GFR/1.73 sq M.predicted MDRD (S/P/Bld) [Vol rate/Area] mL/min/{1.73_m2} Normal >60 [facility] Comment on above: Result Comment: Calc ulations of estimated GFR are performed using the 2020 CKD-EPI Study Refit equation without the race variable for the IDMS-Traceable creatinine methods.https://jasn.asnjournals.org/content/early// N.3931149720 Performed By: #### 2 4323-8 ####ANDI Cotter ([id number])[facility] ([facility])[address] [place] [address] Glucose [Mass/Vol] 160 mg/dL High 74-99 [facility] Comment on above: Performed By: #### 2 4323-8 ####ANDI Cotter ([id number])[facility] ([facility])[address] [place] [address] Potassium [Moles/Vol] 3.7 mmol/L Normal 3.5-5.3 [facility] Comment on above: Performed By: #### 2 4323-8 ####ANDI Cotter ([id number])[facility] ([facility])[address] [place] [address] Protein [Mass/Vol] 7.0 g/dL Normal 6.4-8.2 [facility] Comment on above: Performed By: #### 2 4323-8 ####ANDI Cotter ([id number])[facility] ([facility])[address] [place] [address] Sodium [Moles/Vol] 137 mmol/L Normal 136-145 [facility] Comment on above: Performed By: #### 2 4323-8 ####ANDI Cotter ([id number])[facility] ([facility])[address] [place] [address] Urea nitrogen [Mass/Vol] 9 mg/dL Normal 6-23 [facility] Comment on above: Performed By: #### 2 4323-8 ####ANDI Cotter ([id number])[facility] ([facility])[address] [place] [address] Gastrointestinal pathogens i dentifiedon 02-08-2024 Gastrointestinal pathogens identified SANNA+probe Nom (Stl) Normal Not Detected [facility] Comment on above: Performed By: #### 7 9390-1 ####ANDI Cotter ([id number])[facility] ([facility])[address] [place] [address] Glucose Test strip manual (B ld) [Mass/Vol]on 02-08-2024 Glucose [Mass/Vol] 158 mg/dL High 74-99 [facility] Comment on above: Performed By: #### 2 341-6 ####ANDI Cotter ([id number])[facility] ([facility])[address] [place] [address] Glucose [Mass/Vol] 159 mg/dL High 74-99 [facility] Comment on above: Performed By: #### 2 341-6 ####ANDI Cotter ([id number])[facility] ([facility])[address] [place] [address] Magnesiumon 02-08-2024 Magnesium [Mass/Vol] 1.88 mg/dL Normal 1.60-2.40 [facility] Comment on above: Performed By: #### 1 9123-9 ####ANDI Cotter ([id number])[facility] ([facility])[address] [place] [address] CBC W Auto Differential pane l (Bld)on 02-07-2024 Basophils (Bld) [#/Vol] 0.07 x10*3/uL Normal 0.00-0.10 [facility] Comment on above: Performed By: #### 5 7021-8 ####ANDI Cotter ([id number])[facility] ([facility])[address] [place] [address] Basophils/100 WBC (Bld) 0.6 % Normal 0.0-2.0 [facility] Comment on above: Performed By: #### 5 7021-8 ####ANDI Cotter ([id number])[facility] ([facility])[address] [place] [address] Eosinophils (Bld) [#/Vol] 0.25 x10*3/uL Normal 0.00-0.70 [facility] Comment on above: Performed By: #### 5 7021-8 ####ANDI Cotter ([id number])[facility] ([facility])[address] [place] [address] Eosinophils/100 WBC (Bld) 2.0 % Normal 0.0-6.0 [facility] Comment on above: Performed By: #### 5 7021-8 ####ANDI Cotter ([id number])[facility] ([facility])[address] [place] [address] Erythrocyte distribution width (RBC) [Ratio] 13.5 % Normal 11.5-14.5 [facility] Comment on above: Performed By: #### 5 7021-8 ####ANDI Cotter ([id number])[facility] ([facility])[address] [place] [address] Hematocrit (Bld) [Volume fraction] 30.9 % Low 36.0-46.0 [facility] Comment on above: Performed By: #### 5 7021-8 ####ANDI Cotter ([id number])[facility] ([facility])[address] [place] [address] Hemoglobin (Bld) [Mass/Vol] 10.0 g/dL Low 12.0-16.0 [facility] Comment on above: Performed By: #### 5 7021-8 ####ANDI Cotter ([id number])[facility] ([facility])[address] [place] [address] Immature granulocytes (Bld) [#/Vol] 0.20 x10*3/uL Normal 0.00-0.70 [facility] Comment on above: Performed By: #### 5 7021-8 ####ANDI Cotter ([id number])[facility] ([facility])[address] [place] [address] Immature granulocytes/100 WBC (Bld) 1.6 % High 0.0-0.9 [facility] Comment on above: Result Comment: Debbie ture Granulocyte Count (IG) includes promyelocytes, myelocytes and metamyelocytes but does not include bands. Percent differential counts (%) should be interpreted in the context of the absolute cell counts (cells/UL). Performed By: #### 5 7021-8 ####ANDI Cotter ([id number])[facility] ([facility])[address] [place] [address] Lymphocytes (Bld) [#/Vol] 1.77 x10*3/uL Normal 1.20-4.80 [facility] Comment on above: Performed By: #### 5 7021-8 ####ANDI Cotter ([id number])[facility] ([facility])[address] [place] [address] Lymphocytes/100 WBC (Bld) 14.0 % Normal 13.0-44.0 [facility] Comment on above: Performed By: #### 5 7021-8 ####ANDI Cotter ([id number])[facility] ([facility])[address] [place] [address] MCH (RBC) [Entitic mass] 28.3 pg Normal 26.0-34.0 [facility] Comment on above: Performed By: #### 5 7021-8 ####ANDI Cotter ([id number])[facility] ([facility])[address] [place] [address] MCHC (RBC) [Mass/Vol] 32.4 g/dL Normal 32.0-36.0 [facility] Comment on above: Performed By: #### 5 7021-8 ####ANDI Cotter ([id number])[facility] ([facility])[address] [place] [address] MCV (RBC) [Entitic vol] 88 fL Normal 80-100 [facility] Comment on above: Performed By: #### 5 7021-8 ####ANDI Cotter ([id number])[facility] ([facility])[address] [place] [address] Monocytes (Bld) [#/Vol] 0.87 x10*3/uL Normal 0.10-1.00 [facility] Comment on above: Performed By: #### 5 7021-8 ####ANDI Cotter ([id number])[facility] ([facility])[address] [place] [address] Monocytes/100 WBC (Bld) 6.9 % Normal 2.0-10.0 [facility] Comment on above: Performed By: #### 5 7021-8 ####ANDI Cotter ([id number])[facility] ([facility])[address] [place] [address] Neutrophils (Bld) [#/Vol] 9.44 x10*3/uL High 1.20-7.70 [facility] Comment on above: Result Comment: Perc ent differential counts (%) should be interpreted in the context of the absolute cell counts (cells/uL). Performed By: #### 5 7021-8 ####ANDI Cotter ([id number])[facility] ([facility])[address] [place] [address] Neutrophils/100 WBC (Bld) 74.9 % Normal 40.0-80.0 [facility] Comment on above: Performed By: #### 5 7021-8 ####ANDI Cotter ([id number])[facility] ([facility])[address] [place] [address] Nucleated RBC/100 WBC (Bld) [Ratio] 0.0 /100 WBCs Normal 0.0-0.0 [facility] Comment on above: Performed By: #### 5 7021-8 ####ANDI Cotter (85853)[facility] ([facility])[address] [place] [address] Platelets (Bld) [#/Vol] 338 x10*3/uL Normal 150-450 [facility] Comment on above: Performed By: #### 5 7021-8 ####ANDI Cotter ([id number])[facility] ([facility])[address] [place] [address] RBC (Bld) [#/Vol] 3.53 x10*6/uL Low 4.00-5.20 [facility] Comment on above: Performed By: #### 5 7021-8 ####ANDI Cotter ([id number])[facility] ([facility])[address]68 [place] [address] WBC (Bld) [#/Vol] 12.6 x10*3/uL High 4.4-11.3 [facility] Comment on above: Performed By: #### 5 7021-8 ####ANDI Cotter ([id number])[facility] ([facility])[address] [place] [address] Comprehensive metabolic 2000 panelon 02-07-2024 Albumin BCP dye [Mass/Vol] 3.5 g/dL Normal 3.4-5.0 [facility] Comment on above: Performed By: #### 2 4323-8 ####ANDI Cotter ([id number])[facility] ([facility])[address] [place] [address] ALP [Catalytic activity/Vol] 181 U/L High 33-110 [facility] Comment on above: Performed By: #### 2 4323-8 ####ANDI Cotter ([id number])[facility] ([facility])[id number] [place] [address] ALT With P-5'-P [Catalytic activity/Vol] 46 U/L High 7-45 [facility] Comment on above: Result Comment: Evelyn ents treated with Sulfasalazine may generate falsely decreased results for ALT. Performed By: #### 2 4323-8 ####ANDI Cotter ([id number])[facility] ([facility])[address] [place] [address] Anion gap [Moles/Vol] 16 mmol/L Normal 10-20 [facility] Comment on above: Performed By: #### 2 4323-8 ####ANDI Cotter ([id number])[facility] ([facility])[address] [place] [address] AST With P-5'-P [Catalytic activity/Vol] 30 U/L Normal 9-39 [facility] Comment on above: Performed By: #### 2 4323-8 ####ANDI Cotter ([id number])[facility] ([facility])[address]26 [place] [address] Bilirubin [Mass/Vol] 0.3 mg/dL Normal 0.0-1.2 [facility] Comment on above: Performed By: #### 2 4323-8 ####ANDI Cotter ([id number])[facility] ([facility])[address] [place] [address] Calcium [Mass/Vol] 9.1 mg/dL Normal 8.6-10.6 [facility] Comment on above: Performed By: #### 2 4323-8 ####ANDI Cotter (30235)[facility] ([facility])[address] [place] [address] Chloride [Moles/Vol] 97 mmol/L Low 98-107 [facility] Comment on above: Performed By: #### 2 4323-8 ####ANDI CHAUDHARY L ([id number])[facility] ([facility])[address] [place] [address] CO2 [Moles/Vol] 26 mmol/L Normal 21-32 [facility] Comment on above: Performed By: #### 2 4323-8 ####ANDI Cotter ([id number])[facility] ([facility])[address] [place] [address] Creatinine [Mass/Vol] 0.73 mg/dL Normal 0.50-1.05 [facility] Comment on above: Performed By: #### 2 4323-8 ####ANDI CHAUDHARY L (45026)[facility] ([facility])[address] [place] [address] GFR/1.73 sq M.predicted MDRD (S/P/Bld) [Vol rate/Area] mL/min/{1.73_m2} Normal >60 [facility] Comment on above: Result Comment: Calc ulations of estimated GFR are performed using the 2020 CKD-EPI Study Refit equation without the race variable for the IDMS-Traceable creatinine methods.https://jasn.asnjournals.org/content// N.7074442961 Performed By: #### 2 4323-8 ####ANDI Cotter ([id number])[facility] ([facility])[address] [place] [address] Glucose [Mass/Vol] 157 mg/dL High 74-99 [facility] Comment on above: Performed By: #### 2 4323-8 ####ANDI Cotter ([id number])[facility] ([facility])[address]64 [place] [address] Potassium [Moles/Vol] 3.8 mmol/L Normal 3.5-5.3 [facility] Comment on above: Performed By: #### 2 4323-8 ####ANDI Cotter ([id number])[facility] ([facility])[id number] [place] [address] Protein [Mass/Vol] 7.7 g/dL Normal 6.4-8.2 [facility] Comment on above: Performed By: #### 2 4323-8 ####ANDI Cotter ([id number])[facility] ([facility])[address] [place] [address] Sodium [Moles/Vol] 135 mmol/L Low 136-145 [facility] Comment on above: Performed By: #### 2 4323-8 ####ANDI Cotter ([id number])[facility] ([facility])[address]363 [place] [address] Urea nitrogen [Mass/Vol] 10 mg/dL Normal 6-23 [facility] Comment on above: Performed By: #### 2 4323-8 ####ANDI Cotter ([id number])[facility] ([facility])[address] [place] [address] Glucose Test strip manual (B ld) [Mass/Vol]on 02-07-2024 Glucose [Mass/Vol] 121 mg/dL High 74-99 [facility] Comment on above: Performed By: #### 2 341-6 ####ANDI CHAUDHARY L ([id number])[facility] ([facility])[address]270 [place] [address] Glucose [Mass/Vol] 170 mg/dL High [address] [place] [address] Comment on above: Performed By: #### 2 341-6 ####ANDI RAJPUTMOTZER L ([id number])[facility] ([facility])[address]38 [place] [address] Glucose [Mass/Vol] 177 mg/dL High [address] [place] [address] Comment on above: Performed By: #### 2 341-6 ####ANDI RENEEER L ([id number])[facility] ([facility])[address]289 [place] [address] Glucose [Mass/Vol] 160 mg/dL High [address] [place] [address] Comment on above: Performed By: #### 2 341-6 ####ANDI RAJPUTMOTZER L ([id number])[facility] ([facility])[id number] [place] [address] Heparin.unfractionatedon Heparin unfractionated Chromogenic method Qn (PPP) 0.4 IU/mL Normal See Comment Below for Therapeutic Ranges [facility] Comment on above: Order Comment: The t herapeutic reference range for UFH may be either 0.3-0.6 IU/mL or 0.3-0.7 IU/mL based on the clinical setting for anticoagulant therapy and the associated nomogram used. For Heparin dosing guidelines based on clinical scenario and Heparin Assay results, please refer to local Pharmacy and the [facility] Guidelines for Anticoagulation Therapy available on the [facility] intranet at: [email or web address]_[email or web address] Performed By: #### 3 274-8 ####ANDI RAJPUTMOTZER L (94005)[facility] ([facility])[address] [place] [address] Heparin unfractionated Chromogenic method Qn (PPP) 0.1 IU/mL Normal See Comment Below for Therapeutic Ranges [facility] Comment on above: Order Comment: Obtai n 4 hours after any Heparin dosage change. Nursing to release order.The therapeutic reference range for UFH may be either 0.3-0.6 IU/mL or 0.3-0.7 IU/mL based on the clinical setting for anticoagulant therapy and the associated nomogram used. For Heparin dosing guidelines based on clinical scenario and Heparin Assay results, please refer to local Pharmacy and the [facility] Guidelines for Anticoagulation Therapy available on the [facility] intranet at: [email or web address]_[email or web address] Performed By: #### 3 274-8 ####ANDI Cotter ([id number])[facility] ([facility])[address] [place] [address] Magnesiumon 02-07-2024 Magnesium [Mass/Vol] 1.92 mg/dL Normal 1.60-2.40 [facility] Comment on above: Performed By: #### 1 9123-9 ####ANDI Cotter ([id number])[facility] ([facility])[address] [place] [address] CBC W Auto Differential pane l (Bld)on 02-06-2024 Basophils (Bld) [#/Vol] 0.05 x10*3/uL Normal 0.00-0.10 [facility] Comment on above: Performed By: #### 5 7021-8 ####ANDI Cotter ([id number])[facility] ([facility])[address] [place] [address] Basophils/100 WBC (Bld) 0.4 % Normal 0.0-2.0 [facility] Comment on above: Performed By: #### 5 7021-8 ####ANDI Cotter ([id number])[facility] ([facility])[address] [place] [address] Eosinophils (Bld) [#/Vol] 0.25 x10*3/uL Normal 0.00-0.70 [facility] Comment on above: Performed By: #### 5 7021-8 ####ANDI Cotter ([id number])[facility] ([facility])[address] [place] [address] Eosinophils/100 WBC (Bld) 2.2 % Normal 0.0-6.0 [facility] Comment on above: Performed By: #### 5 7021-8 ####ANDI Cotter ([id number])[facility] ([facility])[address] [place] [address] Erythrocyte distribution width (RBC) [Ratio] 13.5 % Normal 11.5-14.5 [facility] Comment on above: Performed By: #### 5 7021-8 ####ANDI Cotter ([id number])[facility] ([facility])[address] [place] [address] Hematocrit (Bld) [Volume fraction] 33.1 % Low 36.0-46.0 [facility] Comment on above: Performed By: #### 5 7021-8 ####ANDI Cotter ([id number])[facility] ([facility])[id number] [place] [address]79 Hemoglobin (Bld) [Mass/Vol] 10.4 g/dL Low 12.0-16.0 [facility] Comment on above: Performed By: #### 5 7021-8 ####ANDI Cotter ([id number])[facility] ([facility])[id number] [place] [address] Immature granulocytes (Bld) [#/Vol] 0.23 x10*3/uL Normal 0.00-0.70 [facility] Comment on above: Performed By: #### 5 7021-8 ####ANDI Cotter ([id number])[facility] ([facility])[id number] [place] [address]781 Immature granulocytes/100 WBC (Bld) 2.1 % High 0.0-0.9 [facility] Comment on above: Result Comment: Debbie ture Granulocyte Count (IG) includes promyelocytes, myelocytes and metamyelocytes but does not include bands. Percent differential counts (%) should be interpreted in the context of the absolute cell counts (cells/UL). Performed By: #### 5 7021-8 ####ANDI Cotter ([id number])[facility] ([facility])[address] [place] [address] Lymphocytes (Bld) [#/Vol] 2.00 x10*3/uL Normal 1.20-4.80 [facility] Comment on above: Performed By: #### 5 7021-8 ####ANDI Cotter ([id number])[facility] ([facility])[address] [place] [address] Lymphocytes/100 WBC (Bld) 17.9 % Normal 13.0-44.0 [facility] Comment on above: Performed By: #### 5 7021-8 ####ANDI Cotter ([id number])[facility] ([facility])[address] [place] [address] MCH (RBC) [Entitic mass] 28.9 pg Normal 26.0-34.0 [facility] Comment on above: Performed By: #### 5 7021-8 ####ANDI Cotter ([id number])[facility] ([facility])[address] [place] [address] MCHC (RBC) [Mass/Vol] 31.4 g/dL Low 32.0-36.0 [facility] Comment on above: Performed By: #### 5 7021-8 ####ANDI Cotter ([id number])[facility] ([facility])[address] [place] [address] MCV (RBC) [Entitic vol] 92 fL Normal 80-100 [facility] Comment on above: Performed By: #### 5 7021-8 ####ANDI Cotter ([id number])[facility] ([facility])[address] [place] [address] Monocytes (Bld) [#/Vol] 0.73 x10*3/uL Normal 0.10-1.00 [facility] Comment on above: Performed By: #### 5 7021-8 ####ANDI Cotter ([id number])[facility] ([facility])[address] [place] [address] Monocytes/100 WBC (Bld) 6.5 % Normal 2.0-10.0 [facility] Comment on above: Performed By: #### 5 7021-8 ####ANDI Cotter ([id number])[facility] ([facility])[address] [place] [address] Neutrophils (Bld) [#/Vol] 7.91 x10*3/uL High 1.20-7.70 [facility] Comment on above: Result Comment: Perc ent differential counts (%) should be interpreted in the context of the absolute cell counts (cells/uL). Performed By: #### 5 7021-8 ####ANDI Cotter ([id number])[facility] ([facility])[address] [place] [address] Neutrophils/100 WBC (Bld) 70.9 % Normal 40.0-80.0 [facility] Comment on above: Performed By: #### 5 7021-8 ####ANDI Cotter ([id number])[facility] ([facility])[address]267 [place] [address] Nucleated RBC/100 WBC (Bld) [Ratio] 0.0 /100 WBCs Normal 0.0-0.0 [facility] Comment on above: Performed By: #### 5 7021-8 ####ANDI Cotter ([id number])[facility] ([facility])[address] [place] [address] Platelets (Bld) [#/Vol] 333 x10*3/uL Normal 150-450 [facility] Comment on above: Performed By: #### 5 7021-8 ####ANDI Cotter ([id number])[facility] ([facility])[address]275 [place] [address] RBC (Bld) [#/Vol] 3.60 x10*6/uL Low 4.00-5.20 [facility] Comment on above: Performed By: #### 5 7021-8 ####ANDI Cotter ([id number])[facility] ([facility])[address] [place] [address] WBC (Bld) [#/Vol] 11.2 x10*3/uL Normal 4.4-11.3 [facility] Comment on above: Performed By: #### 5 7021-8 ####ANDI Cotter ([id number])[facility] ([facility])[address] [place] [address] Coagulation surface inducedo n 02-06-2024 aPTT Coag (PPP) [Time] 50 s High 27-38 [facility] Comment on above: Order Comment: Prior to initiating heparin if not obtained in prior 48 hours. Nursing to release order.The APTT is no longer used for monitoring Unfractionated Heparin Therapy. For monitoring Heparin Therapy, use the Heparin Assay. Performed By: #### 1 4979-9 ####ANDI Cotter ([id number])[facility] ([facility])[address] [place] [address] Comprehensive metabolic 2000 panelon 02-06-2024 Albumin BCP dye [Mass/Vol] 3.3 g/dL Low 3.4-5.0 [facility] Comment on above: Performed By: #### 2 4323-8 ####ANDI Cotter ([id number])[facility] ([facility])[address] [place] [address] ALP [Catalytic activity/Vol] 179 U/L High 33-110 [facility] Comment on above: Performed By: #### 2 4323-8 ####ANDI Cotter ([id number])[facility] ([facility])[address] [place] [address] ALT With P-5'-P [Catalytic activity/Vol] 55 U/L High 7-45 [facility] Comment on above: Result Comment: Evelyn ents treated with Sulfasalazine may generate falsely decreased results for ALT. Performed By: #### 2 4323-8 ####ANDI Cotter ([id number])[facility] ([facility])[address] [place] [address] Anion gap [Moles/Vol] 15 mmol/L Normal 10-20 [facility] Comment on above: Performed By: #### 2 4323-8 ####ANDI Cotter ([id number])[facility] ([facility])[address] [place] [address] AST With P-5'-P [Catalytic activity/Vol] 45 U/L High 9-39 [facility] Comment on above: Performed By: #### 2 4323-8 ####ANDI Cotter ([id number])[facility] ([facility])[address] [place] [address] Bilirubin [Mass/Vol] 0.3 mg/dL Normal 0.0-1.2 [facility] Comment on above: Performed By: #### 2 4323-8 ####ANDI Cotter ([id number])[facility] ([facility])[address] [place] [address] Calcium [Mass/Vol] 8.6 mg/dL Normal 8.6-10.6 [facility] Comment on above: Performed By: #### 2 4323-8 ####ANDI Cotter ([id number])[facility] ([facility])[address] [place] [address] Chloride [Moles/Vol] 99 mmol/L Normal 98-107 [facility] Comment on above: Performed By: #### 2 4323-8 ####ANDI Cotter ([id number])[facility] ([facility])[address] [place] [address] CO2 [Moles/Vol] 27 mmol/L Normal 21-32 [facility] Comment on above: Performed By: #### 2 4323-8 ####ANDI Cotter ([id number])[facility] ([facility])[address] [place] [address] Creatinine [Mass/Vol] 0.77 mg/dL Normal 0.50-1.05 [facility] Comment on above: Performed By: #### 2 4323-8 ####ANDI Cotter ([id number])[facility] ([facility])[address] [place] [address] GFR/1.73 sq M.predicted MDRD (S/P/Bld) [Vol rate/Area] mL/min/{1.73_m2} Normal >60 [facility] Comment on above: Result Comment: Calc ulations of estimated GFR are performed using the 2020 CKD-EPI Study Refit equation without the race variable for the IDMS-Traceable creatinine methods.https://jasn.asnjournals.org/content/early/ N.6295924839 Performed By: #### 2 4323-8 ####ANDI Cotter ([id number])[facility] ([facility])[address] [place] [address] Glucose [Mass/Vol] 154 mg/dL High 74-99 [facility] Comment on above: Performed By: #### 2 4323-8 ####ANDI Cotter ([id number])[facility] ([facility])[address] [place] [address] Potassium [Moles/Vol] 3.8 mmol/L Normal 3.5-5.3 [facility] Comment on above: Performed By: #### 2 4323-8 ####ANDI Cotter ([id number])[facility] ([facility])[address] [place] [address] Protein [Mass/Vol] 6.5 g/dL Normal 6.4-8.2 [facility] Comment on above: Performed By: #### 2 4323-8 ####ANDI Cotter ([id number])[facility] ([facility])[address]447 [place] [address] Sodium [Moles/Vol] 137 mmol/L Normal 136-145 [facility] Comment on above: Performed By: #### 2 4323-8 ####ANDI RENEEER L ([id number])[facility] ([facility])[address] [place] [address] Urea nitrogen [Mass/Vol] 10 mg/dL Normal 03-11 [facility] Comment on above: Performed By: #### 2 4323-8 ####ANDI CHAUDHARY L ([id number])[facility] ([facility])[address] [place] [address] Glucose Test strip manual (B ld) [Mass/Vol]on 02-06-2024 Glucose [Mass/Vol] 140 mg/dL High [facility]99 [facility] Comment on above: Performed By: #### 2 341-6 ####ANDI RENEEER L ([id number])[facility] ([facility])[address] [place] [address] Glucose [Mass/Vol] 205 mg/dL High -[address] [place] [address] Comment on above: Performed By: #### 2 341-6 ####ANDI CHAUDHARY L ([id number])[facility] ([facility])[address] [place] [address] Glucose [Mass/Vol] 160 mg/dL High [address] [place] [address] Comment on above: Performed By: #### 2 341-6 ####ANDI RENEEER L ([id number])[facility] ([facility])[address] [place] [address] Heparin.unfractionatedon Heparin unfractionated Chromogenic method Qn (PPP) 0.3 IU/mL Normal See Comment Below for Therapeutic Ranges [facility] Comment on above: Order Comment: Obtai n 4 hours after any Heparin dosage change. Nursing to release order.The therapeutic reference range for UFH may be either 0.3-0.6 IU/mL or 0.3-0.7 IU/mL based on the clinical setting for anticoagulant therapy and the associated nomogram used. For Heparin dosing guidelines based on clinical scenario and Heparin Assay results, please refer to local Pharmacy and the [facility] Guidelines for Anticoagulation Therapy available on the [facility] intranet at: [email or web address]_[email or web address] Performed By: #### 3 274-8 ####ANDI Cotter ([id number])[facility] ([facility])[address] [place] [address] Magnesiumon 02-06-2024 Magnesium [Mass/Vol] 1.91 mg/dL Normal 1.60-2.40 [facility] Comment on above: Performed By: #### 1 9123-9 ####ANDI Cotter ([id number])[facility] ([facility])[address]208 [place] [address] Basic metabolic 2000 panelon 02-05-2024 Anion gap [Moles/Vol] 16 mmol/L Normal 10-20 [facility] Comment on above: Performed By: #### 2 4321-2 ####ANDI Cotter ([id number])[facility] ([facility])[address] [place] [address] Calcium [Mass/Vol] 8.8 mg/dL Normal 8.6-10.6 [facility] Comment on above: Performed By: #### 2 4321-2 ####ANDI Cotter ([id number])[facility] ([facility])[address]27 [place] [address] Chloride [Moles/Vol] 99 mmol/L Normal 98-107 [facility] Comment on above: Performed By: #### 2 4321-2 ####ANDI Cotter ([id number])[facility] ([facility])[address]70 [place] [address] CO2 [Moles/Vol] 26 mmol/L Normal 21-32 [facility] Comment on above: Performed By: #### 2 4321-2 ####ANDI Cotter ([id number])[facility] ([facility])[address]493 [place] [address] Creatinine [Mass/Vol] 0.70 mg/dL Normal 0.50-1.05 [facility] Comment on above: Performed By: #### 2 4321-2 ####ANDI Cotter ([id number])[facility] ([facility])[address]04 [place] [address] GFR/1.73 sq M.predicted MDRD (S/P/Bld) [Vol rate/Area] mL/min/{1.73_m2} Normal >60 [facility] Comment on above: Result Comment: Calc ulations of estimated GFR are performed using the 2020 CKD-EPI Study Refit equation without the race variable for the IDMS-Traceable creatinine methods.https://jasn.asnjournals.org/content/early// N.8237403988 Performed By: #### 2 4321-2 ####ANDI Cotter ([id number])[facility] ([facility])[address]84 [place] [address] Glucose [Mass/Vol] 116 mg/dL High 74-99 [facility] Comment on above: Performed By: #### 2 4321-2 ####ANDI Cotter (30683)[facility] ([facility])[address]45 [place] [address] Potassium [Moles/Vol] 4.0 mmol/L Normal 3.5-5.3 [facility] Comment on above: Performed By: #### 2 4321-2 ####ANDI Cotter (38020)[facility] ([facility])[address]88 [place] [address] Sodium [Moles/Vol] 137 mmol/L Normal 136-145 [facility] Comment on above: Performed By: #### 2 4321-2 ####ANDI Cotter (45453)[facility] ([facility])[address]155 [place] [address] Urea nitrogen [Mass/Vol] 7 mg/dL Normal 6-23 [facility] Comment on above: Performed By: #### 2 4321-2 ####ANDI Cotter ([id number])[facility] ([facility])[address] [place] [address] CBC W Auto Differential pane l (Bld)on 02-05-2024 Basophils (Bld) [#/Vol] 0.06 x10*3/uL Normal 0.00-0.10 [facility] Comment on above: Performed By: #### 5 7021-8 ####ANDI Cotter ([id number])[facility] ([facility])[address] [place] [address] Basophils/100 WBC (Bld) 0.5 % Normal 0.0-2.0 [facility] Comment on above: Performed By: #### 5 7021-8 ####ANID Cotter ([id number])[facility] ([facility])[address] [place] [address] Eosinophils (Bld) [#/Vol] 0.26 x10*3/uL Normal 0.00-0.70 [facility] Comment on above: Performed By: #### 5 7021-8 ####ANDI Cotter ([id number])[facility] ([facility])[address] [place] [address] Eosinophils/100 WBC (Bld) 2.1 % Normal 0.0-6.0 [facility] Comment on above: Performed By: #### 5 7021-8 ####ANDI Cotter ([id number])[facility] ([facility])[address] [place] [address] Erythrocyte distribution width (RBC) [Ratio] 13.5 % Normal 11.5-14.5 [facility] Comment on above: Performed By: #### 5 7021-8 ####ANDI Cotter ([id number])[facility] ([facility])[address] [place] [address] Hematocrit (Bld) [Volume fraction] 33.4 % Low 36.0-46.0 [facility] Comment on above: Performed By: #### 5 7021-8 ####ANDI Cotter ([id number])[facility] ([facility])[address] [place] [address] Hemoglobin (Bld) [Mass/Vol] 10.1 g/dL Low 12.0-16.0 [facility] Comment on above: Performed By: #### 5 7021-8 ####ANDI Cotter (87140)[facility] ([facility])[address]62 [place] [address] Immature granulocytes (Bld) [#/Vol] 0.22 x10*3/uL Normal 0.00-0.70 [facility] Comment on above: Performed By: #### 5 7021-8 ####ANDI Cotter ([id number])[facility] ([facility])[address]86 [place] [address] Immature granulocytes/100 WBC (Bld) 1.8 % High 0.0-0.9 [facility] Comment on above: Result Comment: Debbie ture Granulocyte Count (IG) includes promyelocytes, myelocytes and metamyelocytes but does not include bands. Percent differential counts (%) should be interpreted in the context of the absolute cell counts (cells/UL). Performed By: #### 5 7021-8 ####ANDI Cotter ([id number])[facility] ([facility])[address]42 [place] [address] Lymphocytes (Bld) [#/Vol] 1.84 x10*3/uL Normal 1.20-4.80 [facility] Comment on above: Performed By: #### 5 7021-8 ####ANDI Cotter ([id number])[facility] ([facility])[address]170 [place] [address] Lymphocytes/100 WBC (Bld) 14.7 % Normal 13.0-44.0 [facility] Comment on above: Performed By: #### 5 7021-8 ####ANDI Cotter ([id number])[facility] ([facility])[address]505 [place] [address] MCH (RBC) [Entitic mass] 27.7 pg Normal 26.0-34.0 [facility] Comment on above: Performed By: #### 5 7021-8 ####ANDI Cotter ([id number])[facility] ([facility])[address]36 [place] [address] MCHC (RBC) [Mass/Vol] 30.2 g/dL Low 32.0-36.0 [facility] Comment on above: Performed By: #### 5 7021-8 ####ANDI CHAUDHARY L ([id number])[facility] ([facility])[address]96 [place] [address] MCV (RBC) [Entitic vol] 92 fL Normal 80-100 [facility] Comment on above: Performed By: #### 5 7021-8 ####ANDI Cotter (86063)[facility] ([facility])[address]106 [place] [address] Monocytes (Bld) [#/Vol] 1.01 x10*3/uL High 0.10-1.00 [facility] Comment on above: Performed By: #### 5 7021-8 ####ANDI Cotter ([id number])[facility] ([facility])[address]28 [place] [address] Monocytes/100 WBC (Bld) 8.1 % Normal 2.0-10.0 [facility] Comment on above: Performed By: #### 5 7021-8 ####ANDI Cotter ([id number])[facility] ([facility])[address]338 [place] [address] Neutrophils (Bld) [#/Vol] 9.11 x10*3/uL High 1.20-7.70 [facility] Comment on above: Result Comment: Perc ent differential counts (%) should be interpreted in the context of the absolute cell counts (cells/uL). Performed By: #### 5 7021-8 ####ANDI MADRIDTZDAVID L (02597)[facility] ([facility])[address]235 [place] [address] Neutrophils/100 WBC (Bld) 72.8 % Normal 40.0-80.0 [facility] Comment on above: Performed By: #### 5 7021-8 ####ANDI Cotter (40556)[facility] ([facility])[address] [place] [address] Nucleated RBC/100 WBC (Bld) [Ratio] 0.0 /100 WBCs Normal 0.0-0.0 [facility] Comment on above: Performed By: #### 5 7021-8 ####ANDI Cotter (82601)[facility] ([facility])[address] [place] [address] Platelets (Bld) [#/Vol] 330 x10*3/uL Normal 150-450 [facility] Comment on above: Performed By: #### 5 7021-8 ####ANDI Cotter ([id number])[facility] ([facility])[address] [place] [address] RBC (Bld) [#/Vol] 3.65 x10*6/uL Low 4.00-5.20 [facility] Comment on above: Performed By: #### 5 7021-8 ####ANDI Cotter ([id number])[facility] ([facility])[address] [place] [address] WBC (Bld) [#/Vol] 12.5 x10*3/uL High 4.4-11.3 [facility] Comment on above: Performed By: #### 5 7021-8 ####ANDI Cotter ([id number])[facility] ([facility])[address] [place] [address] Glucose Test strip manual (B ld) [Mass/Vol]on 02-05-2024 Glucose [Mass/Vol] 190 mg/dL High 74-99 [facility] Comment on above: Performed By: #### 2 341-6 ####ANDI Cotter (40907)[facility] ([facility])[address] [place] [address] Glucose [Mass/Vol] 152 mg/dL High 74-99 [facility] Comment on above: Performed By: #### 2 341-6 ####ANDI Cotter ([id number])[facility] ([facility])[address] [place] [address] Glucose [Mass/Vol] 124 mg/dL High 74-99 [facility] Comment on above: Performed By: #### 2 341-6 ####ANDI Cotter (84909)[facility] ([facility])[address]96 [place] [address] Heparin.unfractionatedon Heparin unfractionated Chromogenic method Qn (PPP) 0.3 IU/mL Normal See Comment Below for Therapeutic Ranges [facility] Comment on above: Order Comment: Obtai n 4 hours after any Heparin dosage change. Nursing to release order.The therapeutic reference range for UFH may be either 0.3-0.6 IU/mL or 0.3-0.7 IU/mL based on the clinical setting for anticoagulant therapy and the associated nomogram used. For Heparin dosing guidelines based on clinical scenario and Heparin Assay results, please refer to local Pharmacy and the [facility] Guidelines for Anticoagulation Therapy available on the [facility] intranet at: [email or web address]_[email or web address] Performed By: #### 3 274-8 ####ANDI Cotter ([id number])[facility] ([facility])[address]63 [place] [address] Heparin unfractionated Chromogenic method Qn (PPP) 0.3 IU/mL Normal See Comment Below for Therapeutic Ranges [facility] Comment on above: Order Comment: Obtai n 4 hours after any Heparin dosage change. Nursing to release order.The therapeutic reference range for UFH may be either 0.3-0.6 IU/mL or 0.3-0.7 IU/mL based on the clinical setting for anticoagulant therapy and the associated nomogram used. For Heparin dosing guidelines based on clinical scenario and Heparin Assay results, please refer to local Pharmacy and the [facility] Guidelines for Anticoagulation Therapy available on the [facility] intranet at: [email or web address]_Guidelines_for_[email or web address].aspx Performed By: #### 3 274-8 ####ANDI Cotter (84598)[facility] ([facility])[address]62 [place] [address] Heparin unfractionated Chromogenic method Qn (PPP) 0.1 IU/mL Normal See Comment Below for Therapeutic Ranges [facility] Comment on above: Order Comment: Obtai n 4 hours after initiation of heparin infusion. Nursing to release order.The therapeutic reference range for UFH may be either 0.3-0.6 IU/mL or 0.3-0.7 IU/mL based on the clinical setting for anticoagulant therapy and the associated nomogram used. For Heparin dosing guidelines based on clinical scenario and Heparin Assay results, please refer to local Pharmacy and the [facility] Guidelines for Anticoagulation Therapy available on the [facility] intranet at: [email or web address]_Guidelines_[email or web address] Performed By: #### 3 274-8 ####ANDI Cotter ([id number])[facility] ([facility])[id number] [place] [address] Hepatic function 2000 panelo n 02-05-2024 Albumin BCP dye [Mass/Vol] 3.3 g/dL Low 3.4-5.0 [facility] Comment on above: Performed By: #### 2 4325-3 ####ANDI Cotter ([id number])[facility] ([facility])[address]53 [place] [address] ALP [Catalytic activity/Vol] 168 U/L High 33-110 [facility] Comment on above: Performed By: #### 2 4325-3 ####ANDI Cotter ([id number])[facility] ([facility])[address]72 [place] [address] ALT With P-5'-P [Catalytic activity/Vol] 44 U/L Normal 7-45 [facility] Comment on above: Result Comment: Evelyn ents treated with Sulfasalazine may generate falsely decreased results for ALT. Performed By: #### 2 4325-3 ####ANDI Cotter ([id number])[facility] ([facility])[address] [place] [address] AST With P-5'-P [Catalytic activity/Vol] 61 U/L High 9-39 [facility] Comment on above: Performed By: #### 2 4325-3 ####ANDI Cotter ([id number])[facility] ([facility])[address]47 [place] [address] Bilirubin [Mass/Vol] 0.4 mg/dL Normal 0.0-1.2 [facility] Comment on above: Performed By: #### 2 4325-3 ####ANDI Cotter ([id number])[facility] [facility] ([facility])[address] [place] [address] Bilirubin.direct [Mass/Vol] 0.1 mg/dL Normal 0.0-0.3 [facility] Comment on above: Performed By: #### 2 4325-3 ####ANDI Cotter ([id number])[facility] ([facility])[address] [place] [address] Protein [Mass/Vol] 7.1 g/dL Normal 6.4-8.2 [facility] Comment on above: Performed By: #### 2 4325-3 ####ANDI Cotter ([id number])[facility] ([facility])[address] [place] [address] Magnesiumon 02-05-2024 Magnesium [Mass/Vol] 1.93 mg/dL Normal 1.60-2.40 [facility] Comment on above: Performed By: #### 1 9123-9 ####ANDI Cotter ([id number])[facility] ([facility])[address] [place] [address] PT and aPTT panel Coag (PPP) on 02-05-2024 aPTT Coag (PPP) [Time] 31 s Normal 27-38 [facility] Comment on above: Order Comment: The A PTT is no longer used for monitoring Unfractionated Heparin Therapy. For monitoring Heparin Therapy, use the Heparin Assay. Performed By: #### 3 4529-8 ####ANDI Cotter ([id number])[facility] ([facility])[address] [place] [address] INR Coag (PPP) [Relative time] 1.3 High 0.9-1.1 [facility] Comment on above: Order Comment: The A PTT is no longer used for monitoring Unfractionated Heparin Therapy. For monitoring Heparin Therapy, use the Heparin Assay. Performed By: #### 3 4529-8 ####ANDI Cotter ([id number])[facility] ([facility])[address] [place] [address] PT Coag (PPP) [Time] 15.1 s High 9.8-12.8 [facility] Comment on above: Order Comment: The A PTT is no longer used for monitoring Unfractionated Heparin Therapy. For monitoring Heparin Therapy, use the Heparin Assay. Performed By: #### 3 4529-8 ####ANDI Cotter ([id number])[facility] ([facility])[address] [place] [address] Phosphateon 02-05-2024 Phosphate [Mass/Vol] 3.6 mg/dL Normal 2.5-4.9 [facility] Comment on above: Result Comment: The performance characteristics of phosphorus testing in heparinized plasma have been validated by the individual laboratory site where testing is performed. Testing on heparinized plasma is not approved by the FDA; however, such approval is not necessary. Performed By: #### 2 777-1 ####ANDI Cotter ([id number])[facility] ([facility])[address] [place] [address] Bacteria identifiedon 2023 Bacteria identified Cx Nom (Bld) [facility] Comment on above: Performed By: #### 6 00-7 ####ANDI Cotter ([id number])[facility] ([facility])[address] [place] [address] Bacteria identified Cx Nom (Bld) Normal [facility] Comment on above: Performed By: #### 6 00-7 ####ANDI Cotter ([id number])[facility] ([facility])[address] [place] [address] Basic metabolic 2000 panelon 02-04-2024 Anion gap [Moles/Vol] 15 mmol/L Normal 10-20 [facility] Comment on above: Performed By: #### 2 4321-2 ####ANDI Cotter ([id number])[facility] ([facility])[address] [place] [address] Calcium [Mass/Vol] 8.2 mg/dL Low 8.6-10.6 [facility] Comment on above: Performed By: #### 2 4321-2 ####ANDI Cotter ([id number])[facility] ([facility])[address] [place] [address] Chloride [Moles/Vol] 100 mmol/L Normal 98-107 [facility] Comment on above: Performed By: #### 2 4321-2 ####ANDI Cotter ([id number])[facility] ([facility])[address] [place] [address] CO2 [Moles/Vol] 26 mmol/L Normal 21-32 [facility] Comment on above: Performed By: #### 2 4321-2 ####ANDI Cotter ([id number])[facility] ([facility])[address] [place] [address] Creatinine [Mass/Vol] 0.68 mg/dL Normal 0.50-1.05 [facility] Comment on above: Performed By: #### 2 4321-2 ####ANDI Cotter ([id number])[facility] ([facility])[address] [place] [address] GFR/1.73 sq M.predicted MDRD (S/P/Bld) [Vol rate/Area] mL/min/{1.73_m2} Normal >60 [facility] Comment on above: Result Comment: Calc ulations of estimated GFR are performed using the 2020 CKD-EPI Study Refit equation without the race variable for the IDMS-Traceable creatinine methods.https://jasn.asnjournals.org/content/early/ N.5878900124 Performed By: #### 2 4321-2 ####ANDI Cotter ([id number])[facility] ([facility])[address] [place] [address] Glucose [Mass/Vol] 99 mg/dL Normal 74-99 [facility] Comment on above: Performed By: #### 2 4321-2 ####ANDI Cotter ([id number])[facility] ([facility])[address] [place] [address] Potassium [Moles/Vol] 4.5 mmol/L Normal 3.5-5.3 [facility] Comment on above: Performed By: #### 2 4321-2 ####ANDI CHAUDHARY L ([id number])[facility] ([facility])[address] [place] [address] Sodium [Moles/Vol] 136 mmol/L Normal 136-145 [facility] Comment on above: Performed By: #### 2 4321-2 ####ANDI CHAUDHARY L ([id number])[facility] ([facility])[address] [place] [address] Urea nitrogen [Mass/Vol] 7 mg/dL Normal 6-23 [facility] Comment on above: Performed By: #### 2 4321-2 ####ANDI Cotter ([id number])[facility] ([facility])[address] [place] [address] Blood type and Indirect anti body screen panel (Bld)on 02-04-2024 ABO group Nom (Bld) A Normal [facility] Comment on above: Order Comment: Nemesio w your Rh Negative female patient's potential need for Rh Immune Globulin (RhIg)administration. Performed By: #### 3 4532-2 ####ANDI Cotter ([id number])[facility] ([facility])[address] [facility] [place] [address] Blood group antibody screen Ql Negative Normal [facility] Comment on above: Order Comment: Revie w your Rh Negative female patient's potential need for Rh Immune Globulin (RhIg)administration. Performed By: #### 3 4532-2 ####ANDI Cotter ([id number])[facility] ([facility])[address] [address] D Ag Ql (Bld) Negative Normal [facility] Comment on above: Order Comment: Revie w your Rh Negative female patient's potential need for Rh Immune Globulin (RhIg)administration. Performed By: #### 3 4532-2 ####ANDI Cotter ([id number])[facility] ([facility])[address] [facility] [address] C reactive proteinon 024 CRP [Mass/Vol] 14.39 mg/dL High <1.00 [facility] Comment on above: Performed By: #### 1 988-5 ####ANDI Cotter ([id number])[facility] ([facility])[address] [place] [address] CBC W Auto Differential pane l (Bld)on 02-04-2024 Basophils (Bld) [#/Vol] 0.05 x10*3/uL Normal 0.00-0.10 [facility] Comment on above: Performed By: #### 5 7021-8 ####ANDI Cotter ([id number])[facility] ([facility])[address] [place] [address] Basophils/100 WBC (Bld) 0.4 % Normal 0.0-2.0 [facility] Comment on above: Performed By: #### 5 7021-8 ####ANDI Cotter ([id number])[facility] ([facility])[address] [place] [address] Eosinophils (Bld) [#/Vol] 0.22 x10*3/uL Normal 0.00-0.70 [facility] Comment on above: Performed By: #### 5 7021-8 ####ANDI Cotter ([id number])[facility] ([facility])[address] [place] [address] Eosinophils/100 WBC (Bld) 1.9 % Normal 0.0-6.0 [facility] Comment on above: Performed By: #### 5 7021-8 ####ANDI Cotter ([id number])[facility] ([facility])[address] [place] [address] Erythrocyte distribution width (RBC) [Ratio] 13.6 % Normal 11.5-14.5 [facility] Comment on above: Performed By: #### 5 7021-8 ####ANDI Cotter ([id number])[facility] ([facility])[address] [place] [address] Hematocrit (Bld) [Volume fraction] 32.7 % Low 36.0-46.0 [facility] Comment on above: Performed By: #### 5 7021-8 ####ANDI Cotter ([id number])[facility] ([facility])[address] [place] [address] Hemoglobin (Bld) [Mass/Vol] 10.3 g/dL Low 12.0-16.0 [facility] Comment on above: Performed By: #### 5 7021-8 ####ANDI CHAUDHARY L ([id number])[facility] ([facility])[address] [place] [address] Immature granulocytes (Bld) [#/Vol] 0.29 x10*3/uL Normal 0.00-0.70 [facility] Comment on above: Performed By: #### 5 7021-8 ####ANDI Cotter ([id number])[facility] ([facility])[address] [place] [address] Immature granulocytes/100 WBC (Bld) 2.5 % High 0.0-0.9 [facility] Comment on above: Result Comment: Debbie ture Granulocyte Count (IG) includes promyelocytes, myelocytes and metamyelocytes but does not include bands. Percent differential counts (%) should be interpreted in the context of the absolute cell counts (cells/UL). Performed By: #### 5 7021-8 ####ANDI Cotter ([id number])[facility] ([facility])[address] [place] [address] Lymphocytes (Bld) [#/Vol] 2.04 x10*3/uL Normal 1.20-4.80 [facility] Comment on above: Performed By: #### 5 7021-8 ####ANDI Cotter ([id number])[facility] ([facility])[address] [place] [address] Lymphocytes/100 WBC (Bld) 17.4 % Normal 13.0-44.0 [facility] Comment on above: Performed By: #### 5 7021-8 ####ANDI Cotter ([id number])[facility] ([facility])[address] [place] [address] MCH (RBC) [Entitic mass] 28.3 pg Normal 26.0-34.0 [facility] Comment on above: Performed By: #### 5 7021-8 ####ANDI Cotter ([id number])[facility] ([facility])[address] [place] [address] MCHC (RBC) [Mass/Vol] 31.5 g/dL Low 32.0-36.0 [facility] Comment on above: Performed By: #### 5 7021-8 ####ANDI CHAUDHARY L ([id number])[facility] ([facility])[address] [place] [address] MCV (RBC) [Entitic vol] 90 fL Normal 80-100 [facility] Comment on above: Performed By: #### 5 7021-8 ####ANDI Cotter ([id number])[facility] ([facility])[address] [place] [address] Monocytes (Bld) [#/Vol] 1.05 x10*3/uL High 0.10-1.00 [facility] Comment on above: Performed By: #### 5 7021-8 ####ANDI RAJPUTMOTZER L ([id number])[facility] ([facility])[address] [place] [address] Monocytes/100 WBC (Bld) 9.0 % Normal 2.0-10.0 [facility] Comment on above: Performed By: #### 5 7021-8 ####ANDI RAJPUTMOTZER L ([id number])[facility] ([facility])[address] [place] [address] Neutrophils (Bld) [#/Vol] 8.05 x10*3/uL High 1.20-7.70 [facility] Comment on above: Result Comment: Perc ent differential counts (%) should be interpreted in the context of the absolute cell counts (cells/uL). Performed By: #### 5 7021-8 ####ANDI RAJPUTMOTZER L ([id number])[facility] ([facility])[address] [place] [address] Neutrophils/100 WBC (Bld) 68.8 % Normal 40.0-80.0 [facility] Comment on above: Performed By: #### 5 7021-8 ####ANDI RAJPUTMOTZER L ([id number])[facility] ([facility])[address] [place] [address] Nucleated RBC/100 WBC (Bld) [Ratio] 0.0 /100 WBCs Normal 0.0-0.0 [facility] Comment on above: Performed By: #### 5 7021-8 ####ANDI RAJPUTMOTZER L ([id number])[facility] ([facility])[address] [place] [address] Platelets (Bld) [#/Vol] 343 x10*3/uL Normal 150-450 [facility] Comment on above: Performed By: #### 5 7021-8 ####ANDI RAJPUTMOTZER L ([id number])[facility] ([facility])[address] [place] [address] RBC (Bld) [#/Vol] 3.64 x10*6/uL Low 4.00-5.20 [facility] Comment on above: Performed By: #### 5 7021-8 ####ANDI Cotter ([id number])[facility] ([facility])[address] [place] [address] WBC (Bld) [#/Vol] 11.7 x10*3/uL High 4.4-11.3 [facility] Comment on above: Performed By: #### 5 7021-8 ####ANDI Cotter ([id number])[facility] ([facility])[address] [place] [address] ECG 12-LEADon 02-04-2024 ECG 12-LEAD Ventricular Rate 84 Atrial Rate 84 P-R Interval 136 QRS Duration 84 Q-T Interval 400 QTC Calculation(Bazett) 472 P [place] 8 R [place] -5 T [place] 30 QRS Count 14 Q Onset 226 P Onset 158 P Offset 210 T Offset 426 QTC Fredericia 447 Diagnosis Normal sinus rhythm with sinus arrhythmia Normal ECG When compared with ECG of 06-DEC-2023 11:52, No significant change was found Confirmed by Dominick Naik ([id number]) on 02/07/2024 7:51:09 AM Normal [facility] ESR Westergren method (Bld) [Velocity]on 02-04-2024 ESR (Bld) [Velocity] 77 mm/h High 0-20 [facility] Comment on above: Performed By: #### 4 537-7 ####ANDI Cotter ([id number])[facility] ([facility])[address] [place] [address] Glucose Test strip manual (B ld) [Mass/Vol]on 02-04-2024 Glucose [Mass/Vol] 132 mg/dL High 74-99 [facility] Comment on above: Performed By: #### 2 341-6 ####ANDI Cotter ([id number])[facility] ([facility])[address] [place] [address] HbA1c (Bld) [Mass fraction]o n 02-04-2024 Average glucose Estimated from glycated hemoglobin (Bld) [Mass/Vol] 166 mg/dL Normal Not Established [facility] Comment on above: Order Comment: Diagn osis of Dtkpipsy-AsoygeLuy-Dpcqaiwk: < or = 5.6%Increased risk for developing diabetes: 5.7-6.4%Diagnostic of diabetes: > or = 6.5%Monitoring of DiabetesAge (y)....................... Therapeutic Goal (%)Adults: >18.........................<7.0Pediatrics: 13-18...................<7.5Pediatrics: 7-12....................<8.0Pediatrics: 0-6..................... 7.5-8.5American Diabetes Association. Diabetes Care 33(S1)Sep 2009 Performed By: #### 4 548-4 ####ANDI Cotter ([id number])[facility] ([facility])[address] [place] [address] Hemoglobin A1c/Hemoglobin.to fermín 02-04-2024 HbA1c (Bld) [Mass fraction] 7.4 % High see below [facility] Comment on above: Order Comment: Diagn osis of Umbuzrkn-BltarkEsi-Kivfxhap: < or = 5.6%Increased risk for developing diabetes: 5.7-6.4%Diagnostic of diabetes: > or = 6.5%Monitoring of DiabetesAge (y)....................... Therapeutic Goal (%)Adults: >18.........................<7.0Pediatrics: 13-18...................<7.5Pediatrics: 7-12....................<8.0Pediatrics: 0-6..................... 7.5-8.5[facility] Diabetes Association. Diabetes Care 33(S1), Sep 2009 Performed By: #### 4 548-4 ####ANDI Cotter ([id number])[facility] ([facility])[address] [place] [address] Hepatic function 2000 panelo n 02-04-2024 Albumin BCP dye [Mass/Vol] 3.4 g/dL Normal 3.4-5.0 [facility] Comment on above: Performed By: #### 2 4325-3 ####ANDI Cotter ([id number])[facility] ([facility])[address] [place] [address] ALP [Catalytic activity/Vol] 155 U/L High 33-110 [facility] Comment on above: Performed By: #### 2 4325-3 ####ANDI Cotter ([id number])[facility] ([facility])[address] [place] [address] ALT With P-5'-P [Catalytic activity/Vol] 35 U/L Normal 7-45 [facility] Comment on above: Result Comment: Evelyn ents treated with Sulfasalazine may generate falsely decreased results for ALT. Performed By: #### 2 4325-3 ####ANDI Cotter ([id number])[facility] ([facility])[address] [place] [address] AST With P-5'-P [Catalytic activity/Vol] 44 U/L High 9-39 [facility] Comment on above: Performed By: #### 2 4325-3 ####ANDI Cotter ([id number])[facility] ([facility])[address] [place] [address] Bilirubin [Mass/Vol] 0.4 mg/dL Normal 0.0-1.2 [facility] Comment on above: Performed By: #### 2 4325-3 ####ANDI Cotter ([id number])[facility] ([facility])[address] [place] [address] Bilirubin.direct [Mass/Vol] 0.1 mg/dL Normal 0.0-0.3 [facility] Comment on above: Performed By: #### 2 4325-3 ####ANDI Cotter ([id number])[facility] ([facility])[address] [place] [address] Protein [Mass/Vol] 6.5 g/dL Normal 6.4-8.2 [facility] Comment on above: Performed By: #### 2 4325-3 ####ANDI Cotter ([id number])[facility] ([facility])[address] [place] [address] LIPID PANEL NON-FASTINGon Cholesterol [Mass/Vol] 131 mg/dL Normal 0-199 [facility] Comment on above: Result Comment: Age Desirable Borderline High High 0-19 Y 0 - 169 170 - 199 >/= 200 20-24 Y 0 - 189 190 - 224 >/= 225 >24 Y 0 - 199 200 - 239 >/= 240 All ranges are based on fasting samples. Specific therapeutic targets will vary based on patient-specific cardiac risk.Pediatric guidelines reference:Pediatrics 2011, 128(S5).Adult guidelines reference: NCEP ATPIII Guidelines,ANA LAURA 2001, 258:2486-97Venipuncture immediately after or during the administration of Metamizole may lead to falsely low results. Testing should be performed immediately prior to Metamizole dosing. Performed By: #### L IPIN ####ANDI Cotter ([id number])[facility] ([facility])[address] [place] [address] Cholesterol in HDL [Mass/Vol] 22.0 mg/dL Normal [facility] Comment on above: Result Comment: Age Very Low Low Normal High0-19 Y < 35 < 40 40-45 ----20-24 Y ---- < 40 >45 ---->24 Y ---- < 40 40-60 >60 Performed By: #### L IPIN ####ANDI Cotter ([id number])[facility] ([facility])[address] [place] [address] CHOLESTEROL/HDL RATIO 6.0 Normal [facility] Comment on above: Result Comment: Ref ValuesDesirable < 3.4High Risk > 5.0 Performed By: #### L IPIN ####ANDI Cotter ([id number])[facility] ([facility])[address] [place] [address] NON-HDL CHOLESTEROL 109 mg/dL Normal 0-149 [facility] Comment on above: Result Comment: Age Desiable Borderline High High Very High 0- 19 Y 0 - 119 120 - 144 >/= 145 >/= 00463-48 Y 0 - 149 150 - 189 >/= 190 ---- >24 Y 30 MG/DL ABOVE LDL CHOLESTEROL GOAL Performed By: #### L IPIN ####ANDI Cotter ([id number])[facility] ([facility])[address] [place] [address] PT and aPTT panel Coag (PPP) on 02-04-2024 aPTT Coag (PPP) [Time] 29 s Normal 27-38 [facility] Comment on above: Order Comment: The A PTT is no longer used for monitoring Unfractionated Heparin Therapy. For monitoring Heparin Therapy, use the Heparin Assay. Performed By: #### 3 4529-8 ####ANDI Cotter ([id number])[facility] ([facility])[address] [place] [address] INR Coag (PPP) [Relative time] 1.3 High 0.9-1.1 [facility] Comment on above: Order Comment: The A PTT is no longer used for monitoring Unfractionated Heparin Therapy. For monitoring Heparin Therapy, use the Heparin Assay. Performed By: #### 3 4529-8 ####ANDI Cotter ([id number])[facility] ([facility])[address] [place] [address] PT Coag (PPP) [Time] 15.2 s High 9.8-12.8 [facility] Comment on above: Order Comment: The A PTT is no longer used for monitoring Unfractionated Heparin Therapy. For monitoring Heparin Therapy, use the Heparin Assay. Performed By: #### 3 4529-8 ####ANDI Cotter ([id number])[facility] ([facility])[address] [place] [address] Phosphateon 02-04-2024 Phosphate [Mass/Vol] 3.6 mg/dL Normal 2.5-4.9 [facility] Comment on above: Result Comment: The performance characteristics of phosphorus testing in heparinized plasma have been validated by the individual laboratory site where testing is performed. Testing on heparinized plasma is not approved by the FDA; however, such approval is not necessary. Performed By: #### 2 777-1 ####ANDI Cotter ([id number])[facility] ([facility])[address] [place], [place] [address] Triacylglycerol lipaseon Lipase [Catalytic activity/Vol] 16 U/L Normal 9-82 [facility] Comment on above: Order Comment: Venip uncture immediately after or during the administration of Metamizole may lead to falsely low results. Testing should be performed immediately prior to Metamizole dosing. Performed By: #### 3 040-3 ####ANDI Cotter ([id number])[facility] ([facility])[address] [place] [address] .GFRon 01-18-2024 GFR 80 ml/min/1.73sqm Normal [facility] ([place]) Comment on above: Result Comment: GFR Population mean for , Non- Americans Ages 20-29 = 116 mL/min/1.73 sq.m. Ages 30-39 = 107 mL/min/1.73 sq.m. Ages 40-49 = 99 mL/min/1.73 sq.m. Ages 50-59 = 93 mL/min/1.73 sq.m. Ages 60-69 = 85 mL/min/1.73 sq.m. Ages 70+ = 75 mL/min/1.73 sq.m. Chronic Kidney Disease: Less than 60 mL/min/1.73 square meters End Stage Renal Disease: Less than 15 mL/min/1.73 square meters Performed By: #### C K #### [address] [place], [place] [address] GFR Non- 66 ml/min/1.73sqm Normal [facility] ([place]) Comment on above: Result Comment: GFR Population mean for , Non- Americans Ages 20-29 = 116 mL/min/1.73 sq.m. Ages 30-39 = 107 mL/min/1.73 sq.m. Ages 40-49 = 99 mL/min/1.73 sq.m. Ages 50-59 = 93 mL/min/1.73 sq.m. Ages 60-69 = 85 mL/min/1.73 sq.m. Ages 70+ = 75 mL/min/1.73 sq.m. Chronic Kidney Disease: Less than 60 mL/min/1.73 square meters End Stage Renal Disease: Less than 15 mL/min/1.73 square meters Performed By: #### C K #### [address] [place], [place] [address] [facility] 01-18-2024 Albumin Level 3.6 G/dL Normal 3.5-5.0 [facility] ([place]) Comment on above: Performed By: #### Jed Hayes PREGU #### [address] [place], [place] [address] Albumin/Globulin [Mass ratio] 1.0 {ratio} Low 1.1-2.5 [facility] ([place]) Comment on above: Performed By: #### U Abigail PREGU #### [address] [place], [place] [address] ALP [Catalytic activity/Vol] 127 U/L Normal 40-135 [facility] ([place]) Comment on above: Performed By: #### U A PREGU #### [address] [place], [place] [address] ALT [Catalytic activity/Vol] 96 U/L High 14-59 [facility] ([place]) Comment on above: Performed By: #### U A, PREGU #### [facility] [address] [place], [place] [address] AST [Catalytic activity/Vol] 71 U/L High 10-40 [facility] ([place]) Comment on above: Performed By: #### U A, PREGU #### [facility] [address] [place], [place] [address] Bili Total 0.3 mg/dL Normal 0.2-1.0 [facility] [facility] ([place]) Comment on above: Result Comment: Use of this assay is not recommended for patients undergoing treatment with eltrombopag due to the potential for falsely elevated results. Performed By: #### U A, PREGU #### [facility] [address] [place], [place] [address] BUN/Creatinine Ratio 11 ratio Normal 7-27 [facility] ([place]) Comment on above: Performed By: #### U A, PREGU #### [facility] [address] [place], [place] [address] Calcium [Mass/Vol] 9.1 mg/dL Normal 8.4-10.2 [facility] ([place]) Comment on above: Performed By: #### U A, PREGU #### [facility] [address] [place] [address] Chloride [Moles/Vol] 101 mmol/L Normal 98-107 [facility] ([place]) Comment on above: Performed By: #### U A, PREGU #### [facility] [address] [place], [place] [address] CO2 [Moles/Vol] 27 mmol/L Normal 22-29 [facility] ([place]) Comment on above: Performed By: #### U A, PREGU #### [facility] [address] [place], [place] [address] Creatinine [Mass/Vol] 0.91 mg/dL Normal 0.55-1.02 [facility] ([place]) Comment on above: Performed By: #### U A, PREGU #### [facility] [address], [place] [address] Electrolyte Balance 12.0 mEq/L Normal 4.0-15.0 [facility] ([place]) Comment on above: Performed By: #### U A, PREGU #### Sean Hunters [address] [place], [place] [address] Globulin 3.7 G/dL Normal [facility] ([place]) Comment on above: Performed By: #### U A, PREGU #### Sean Hunters [address] [place], [place] [address] Glucose [Mass/Vol] 113 mg/dL High 70-105 [facility] ([place]) Comment on above: Performed By: #### U A, PREGU #### [facility] [address] [place], [place] [address] Potassium [Moles/Vol] 4.2 mmol/L Normal 3.5-5.1 [facility] ([place]) Comment on above: Performed By: #### U A, PREGU #### Sean Hunters [address] [place], [place] [address] Sodium [Moles/Vol] 140 mmol/L Normal 136-145 [facility] ([place]) Comment on above: Performed By: #### U A, PREGU #### Sean Hunters [address] [place], [place] [address] Total Protein 7.3 G/dL Normal 6.4-8.2 [facility] ([place]) Comment on above: Performed By: #### U A, PREGU #### Seanoz Loaizan [address] [place], [place] [address] Urea nitrogen [Mass/Vol] 10 mg/dL Normal 7-18 [facility] ([place]) Comment on above: Performed By: #### U A, PREGU #### Sean Hunters [address] [place], [place] [address] FT4on 01-18-2024 Free T4 [Mass/Vol] 1.05 ng/dL Normal 0.76-1.46 [facility] ([place]) Comment on above: Performed By: #### U A, PREGU #### Sean Hunters [address] [place] [id number] LABORATORYOrdered By: SYSTEM SYSTEM on 01-18-2024 25-hydroxyvitamin D3 [Mass/Vol] 42.4 ng/mL Invalid Interpretation Code AO ADM SS Comment on above: Interpretive Data: I nterpretive Values Based on Total 25(OH) Vitamin D: Deficient <20 ng/mL Insufficient 20 - <30 ng/mL Sufficient 30-100 ng/mL Albumin BCP dye [Mass/Vol] 3.6 G/dL Normal 3.5 - 5.0 G/dL AO ADM SS Albumin/Globulin [Mass ratio] 1.0 {ratio} Low 1.1 - 2.5 ratio AO ADM SS ALP [Catalytic activity/Vol] 127 U/L Normal 40 - 135 U/L AO ADM SS ALT With P-5'-P [Catalytic activity/Vol] 96 U/L High 14 - 59 U/L AO ADM SS AST With P-5'-P [Catalytic activity/Vol] 71 U/L High 10 - 40 U/L AO ADM SS Bilirubin [Mass/Vol] 0.3 mg/dL Normal 0.2 - 1 .0 mg/dL AO ADM SS Comment on above: Interpretive Data: U se of this assay is not recommended for patients undergoing treatment with eltrombopag due to the potential for falsely elevated results. Calcium [Mass/Vol] 9.1 mg/dL Normal 8.4 - 10. 2 mg/dL AO ADM SS Chloride [Moles/Vol] 101 mmol/L Normal 98 - 10 7 mmol/L AO ADM SS CO2 [Moles/Vol] 27 mmol/L Normal 22 - 29 mmol/L AO ADM SS Creatinine [Mass/Vol] 0.91 mg/dL Normal 0.55 - 1.02 mg/dL AO ADM SS Electrolyte Balance 12.0 mEq/L Normal 4.0 - 15 .0 mEq/L AO ADM SS Free T4 [Mass/Vol] 1.05 ng/dL Normal 0.76 - 1. 46 ng/dL AO ADM SS GFR/1.73 sq M.predicted among blacks MDRD (S/P/Bld) [Vol rate/Area] 80 ml/min/1.73sqm Invalid Interpretation Code AO Chemistry S Comment on above: Interpretive Data: GFR Population mean for , Non- Americans Ages 20-29 = 116 mL/min/1.73 sq.m. Ages 30-39 = 107 mL/min/1.73 sq.m. Ages 40-49 = 99 mL/min/1.73 sq.m. Ages 50-59 = 93 mL/min/1.73 sq.m. Ages 60-69 = 85 mL/min/1.73 sq.m. Ages 70+ = 75 mL/min/1.73 sq.m. Chronic Kidney Disease: Less than 60 mL/min/1.73 square meters End Stage Renal Disease: Less than 15 mL/min/1.73 square meters GFR/1.73 sq M.predicted among non-blacks MDRD (S/P/Bld) [Vol rate/Area] 66 ml/min/1.73sqm Invalid Interpretation Code AO Chemistry S Comment on above: Interpretive Data: GFR Population mean for , Non- Americans Ages 20-29 = 116 mL/min/1.73 sq.m. Ages 30-39 = 107 mL/min/1.73 sq.m. Ages 40-49 = 99 mL/min/1.73 sq.m. Ages 50-59 = 93 mL/min/1.73 sq.m. Ages 60-69 = 85 mL/min/1.73 sq.m. Ages 70+ = 75 mL/min/1.73 sq.m. Chronic Kidney Disease: Less than 60 mL/min/1.73 square meters End Stage Renal Disease: Less than 15 mL/min/1.73 square meters Globulin 3.7 G/dL Invalid Interpretation Code AO ADM SS Glucose [Mass/Vol] 113 mg/dL High 70 - 105 mg/dL AO ADM SS Potassium [Moles/Vol] 4.2 mmol/L Normal 3.5 - 5.1 mmol/L AO ADM SS Protein [Mass/Vol] 7.3 G/dL Normal 6.4 - 8.2 G/dL AO ADM SS Sodium [Moles/Vol] 140 mmol/L Normal 136 - 145 mmol/L AO ADM SS TSH Qn 1.87 m[IU]/L Normal 0.36 - 3.74 mcIU/mL AO ADM SS Urea nitrogen [Mass/Vol] 10 mg/dL Normal 7 - 18 mg/dL AO ADM SS Urea nitrogen/Creatinine [Mass ratio] 11 ratio Normal 7 - 27 ratio AO ADM SS LABORATORYOrdered By: Guillermina Wilkins on 01-18-2024 Cholesterol [Mass/Vol] 244 mg/dL High 0 - 200 mg/dL AO ADM SS Comment on above: Interpretive Data: C holesterol Reference Interval: Less than 200 Desirable 200-239 Borderline high risk 240 and above High risk Cholesterol in HDL [Mass/Vol] 27 mg/dL Low 40 - 60 mg/dL AO ADM SS Cholesterol in LDL [Mass/Vol] 139 mg/dL High 0 - 130 mg/dL AO ADM SS Triglyceride [Mass/Vol] 388 mg/dL High 0 - 150 mg/dL AO ADM SS Comment on above: Interpretive Data: T riglyceride Reference Interval: Less than 150 Normal 150-199 Borderline high risk 200-499 High risk 500 or higher Very high risk LIPIDon 01-18-2024 Cholesterol [Mass/Vol] 244 mg/dL High 0-200 [facility] ([place]) Comment on above: Result Comment: Chol esterol Reference Interval: Less than 200 Desirable 200-239 Borderline high risk 240 and above High risk Performed By: #### C K #### [address] [address] Cholesterol in HDL [Mass/Vol] 27 mg/dL Low 40-60 [facility] ([place]) Comment on above: Performed By: #### C K #### [address] [address] Cholesterol in LDL [Mass/Vol] 139 mg/dL High 0-130 [facility] ([place]) Comment on above: Performed By: #### C K #### [address] [address] Triglyceride [Mass/Vol] 388 mg/dL High 0-150 [facility] ([place]) Comment on above: Result Comment: Trig lyceride Reference Interval: Less than 150 Normal 150-199 Borderline high risk 200-499 High risk 500 or higher Very high risk Performed By: #### C K #### [address] [address] TSHon 01-18-2024 TSH Qn 1.87 m[IU]/L Normal 0.36-3.74 [facility] ([place]) Comment on above: Performed By: #### U A, PREGU #### [facility] [address] [place], [place] [address] VIDHon 01-18-2024 Vit. D 25-Hydroxy 42.4 ng/mL Normal [facility] ([place]) Comment on above: Result Comment: Inte rpretive Values Based on Total 25(OH) Vitamin D: Deficient <20 ng/mL Insufficient 20 - <30 ng/mL Sufficient 30-100 ng/mL Performed By: #### U A, PREGU #### Sean Hunters [address] [place], [place] [address] Basic metabolic 2000 panelon 12-08-2023 Anion gap [Moles/Vol] 16 mmol/L 10 - 2 0 mmol/L [facility] Calcium [Mass/Vol] 9.6 mg/dL 8.6 - 10. 6 mg/dL [facility] Chloride [Moles/Vol] 98 mmol/L 98 - 10 7 mmol/L [facility] CO2 [Moles/Vol] 27 mmol/L 21 - 32 mmol/L [facility] Creatinine [Mass/Vol] 0.65 mg/dL 0.50 - 1.05 mg/dL [facility] eGFR - PINF [facility] Comment on above: Calculations of estuardo mated GFR are performed using the 2020 CKD-EPI Study Refit equation without the race variable for the IDMS-Traceable creatinine methods. https://jasn.asnjournals.org/content//ASN.459465 9490 Glucose [Mass/Vol] 197 mg/dL High 74 - 99 mg/dL [facility] Interpretation and review of laboratory results Abnormal [facility] Potassium [Moles/Vol] 3.8 mmol/L 3.5 - 5.3 mmol/L [facility] Sodium [Moles/Vol] 137 mmol/L 136 - 145 mmol/L [facility] Urea nitrogen [Mass/Vol] 15 mg/dL 6 - 23 mg/dL [facility] Anion gap [Moles/Vol] 16 mmol/L Normal 10-20 [facility] Comment on above: Performed By: #### 2 4321-2 ####ANDI CHAUDHARY L ([id number])[facility] ([facility])[address] [place] [address] Calcium [Mass/Vol] 9.6 mg/dL Normal 8.6-10.6 [facility] Comment on above: Performed By: #### 2 4321-2 ####ANDI CHAUDHARY L ([id number])[facility] ([facility])[address] [place] [address] Chloride [Moles/Vol] 98 mmol/L Normal 98-107 [facility] Comment on above: Performed By: #### 2 4321-2 ####ANDI CHAUDHARY L ([id number])[facility] ([facility])[address] [place] [address] CO2 [Moles/Vol] 27 mmol/L Normal 21-32 [facility] Comment on above: Performed By: #### 2 4321-2 ####ANDI CHAUDHARY L ([id number])[facility] ([facility])[address] [place] [address] Creatinine [Mass/Vol] 0.65 mg/dL Normal 0.50-1.05 [facility] Comment on above: Performed By: #### 2 4321-2 ####ANDI CHAUDHARY L ([id number])[facility] ([facility])[address] [place] [address] GFR/1.73 sq M.predicted MDRD (S/P/Bld) [Vol rate/Area] mL/min/{1.73_m2} Normal >60 [facility] Comment on above: Result Comment: Calc ulations of estimated GFR are performed using the 2020 CKD-EPI Study Refit equation without the race variable for the IDMS-Traceable creatinine methods.https://jasn.asnjournals.org/content/early/ N.9678923238 Performed By: #### 2 4321-2 ####ANDI CHAUDHARY L ([id number])[facility] ([facility])[address] [place] [address] Glucose [Mass/Vol] 197 mg/dL High 74-99 [facility] Comment on above: Performed By: #### 2 4321-2 ####ANDI Cotter ([id number])[facility] ([facility])[address] [place] [address] Potassium [Moles/Vol] 3.8 mmol/L Normal 3.5-5.3 [facility] Comment on above: Performed By: #### 2 4321-2 ####ANDI Cotter ([id number])[facility] ([facility])[address] [place] [address] Sodium [Moles/Vol] 137 mmol/L Normal 136-145 [facility] Comment on above: Performed By: #### 2 4321-2 ####ANDI Cotter ([id number])[facility] ([facility])[address] [place] [address] Urea nitrogen [Mass/Vol] 15 mg/dL Normal 6-23 [facility] Comment on above: Performed By: #### 2 4321-2 ####ANDI Cotter ([id number])[facility] ([facility])[address] [place] [address] CBC W Auto Differential pane l (Bld)on 12-08-2023 Basophils (Bld) [#/Vol] 0.04 10*3/uL [facility] Basophils/100 WBC (Bld) 0.8 % 0.0 - 2.0 % [facility] Eosinophils (Bld) [#/Vol] 0.23 10*3/uL [facility] Eosinophils/100 WBC (Bld) 4.6 % 0.0 - 6.0 % [facility] Erythrocyte distribution width (RBC) [Ratio] 13.8 % 11.5 - 14.5 % [facility] Hematocrit (Bld) [Volume fraction] 36.5 % 36.0 - 46.0 % [facility] Hemoglobin (Bld) [Mass/Vol] 11.1 g/dL Low 12.0 - 16.0 g/dL [facility] Immature granulocytes (Bld) [#/Vol] 0.03 10*3/uL [facility] Immature granulocytes/100 WBC (Bld) 0.6 % 0.0 - 0.9 % [facility] Comment on above: Immature Granulocyte Count (IG) includes promyelocytes, myelocytes and metamyelocytes but does not include bands. Percent differential counts (%) should be interpreted in the context of the absolute cell counts (cells/UL). Interpretation and review of laboratory results Abnormal [facility] Lymphocytes (Bld) [#/Vol] 1.55 10*3/uL [facility] Lymphocytes/100 WBC (Bld) 30.8 % 13.0 - 44.0 % [facility] MCH (RBC) [Entitic mass] 28.5 pg 26.0 - 34.0 pg [facility] MCHC (RBC) [Mass/Vol] 30.4 g/dL Low 32.0 - 36.0 g/dL [facility] MCV (RBC) [Entitic vol] 94 fL 80 - 100 fL [facility] Monocytes (Bld) [#/Vol] 0.49 10*3/uL [facility] Monocytes/100 WBC (Bld) 9.7 % 2.0 - 10.0 % [facility] Neutrophils (Bld) [#/Vol] 2.69 10*3/uL [facility] Comment on above: Percent differential counts (%) should be interpreted in the context of the absolute cell counts (cells/uL). Neutrophils/100 WBC (Bld) 53.5 % 40.0 - 80.0 % [facility] Nucleated RBC/100 WBC (Bld) [Ratio] 0.0 % [facility] Platelets (Bld) [#/Vol] 178 10*3/uL [facility] RBC (Bld) [#/Vol] 3.89 10*6/uL [facility] WBC (Bld) [#/Vol] 5.0 10*3/uL [facility] Basophils (Bld) [#/Vol] 0.04 x10*3/uL Normal 0.00-0.10 [facility] Comment on above: Performed By: #### 5 7021-8 ####ANDI Cotter ([id number])[facility] ([facility])[id number] [place] [address] Basophils/100 WBC (Bld) 0.8 % Normal 0.0-2.0 [facility] Comment on above: Performed By: #### 5 7021-8 ####ANDI CHAUDHARY L ([id number])[facility] ([facility])[address] [place] [address] Eosinophils (Bld) [#/Vol] 0.23 x10*3/uL Normal 0.00-0.70 [facility] Comment on above: Performed By: #### 5 7021-8 ####ANDI Cotter ([id number])[facility] ([facility])[address] [place] [address] Eosinophils/100 WBC (Bld) 4.6 % Normal 0.0-6.0 [facility] Comment on above: Performed By: #### 5 7021-8 ####ANDI Cotter ([id number])[facility] ([facility])[address] [place] [address] Erythrocyte distribution width (RBC) [Ratio] 13.8 % Normal 11.5-14.5 [facility] Comment on above: Performed By: #### 5 7021-8 ####ANDI Cotter ([id number])[facility] ([facility])[address] [place] [address] Hematocrit (Bld) [Volume fraction] 36.5 % Normal 36.0-46.0 [facility] Comment on above: Performed By: #### 5 7021-8 ####ANDI Cotter ([id number])[facility] ([facility])[address] [place] [address] Hemoglobin (Bld) [Mass/Vol] 11.1 g/dL Low 12.0-16.0 [facility] Comment on above: Performed By: #### 7021-8 ####ANDI Cotter ([id number])[facility] ([facility])[address] [place] [address] Immature granulocytes (Bld) [#/Vol] 0.03 x10*3/uL Normal 0.00-0.70 [facility] Comment on above: Performed By: #### 5 7021-8 ####ANDI Cotter ([id number])[facility] ([facility])[address] [place] [address] Immature granulocytes/100 WBC (Bld) 0.6 % Normal 0.0-0.9 [facility] Comment on above: Result Comment: Debbie ture Granulocyte Count (IG) includes promyelocytes, myelocytes and metamyelocytes but does not include bands. Percent differential counts (%) should be interpreted in the context of the absolute cell counts (cells/UL). Performed By: #### 5 7021-8 ####ANDI Cotter ([id number])[facility] ([facility])[address] [place] [address] Lymphocytes (Bld) [#/Vol] 1.55 x10*3/uL Normal 1.20-4.80 [facility] Comment on above: Performed By: #### 5 7021-8 ####ANDI Cotter ([id number])[facility] ([facility])[address] [place] [address] Lymphocytes/100 WBC (Bld) 30.8 % Normal 13.0-44.0 [facility] Comment on above: Performed By: #### 5 7021-8 ####ANDI Cotter ([id number])[facility] ([facility])[address] [place] [address] MCH (RBC) [Entitic mass] 28.5 pg Normal 26.0-34.0 [facility] Comment on above: Performed By: #### 5 7021-8 ####ANDI Cotter ([id number])[facility] ([facility])[address] [place] [address] MCHC (RBC) [Mass/Vol] 30.4 g/dL Low 32.0-36.0 [facility] Comment on above: Performed By: #### 5 7021-8 ####ANDI Cotter ([id number])[facility] ([facility])[address] [place] [address] MCV (RBC) [Entitic vol] 94 fL Normal 80-100 [facility] Comment on above: Performed By: #### 5 7021-8 ####ANDI Cotter ([id number])[facility] ([facility])[address] [place] [address] Monocytes (Bld) [#/Vol] 0.49 x10*3/uL Normal 0.10-1.00 [facility] Comment on above: Performed By: #### 5 7021-8 ####ANDI Cotter ([id number])[facility] ([facility])[address] [place] [address] Monocytes/100 WBC (Bld) 9.7 % Normal 2.0-10.0 [facility] Comment on above: Performed By: #### 5 7021-8 ####ANDI Cotter ([id number])[facility] ([facility])[address] [place] [address] Neutrophils (Bld) [#/Vol] 2.69 x10*3/uL Normal 1.20-7.70 [facility] Comment on above: Result Comment: Perc ent differential counts (%) should be interpreted in the context of the absolute cell counts (cells/uL). Performed By: #### 5 7021-8 ####ANDI Cotter ([id number])[facility] ([facility])[address] [place] [address] Neutrophils/100 WBC (Bld) 53.5 % Normal 40.0-80.0 [facility] Comment on above: Performed By: #### 5 7021-8 ####ANDI Cotter ([id number])[facility] ([facility])[address] [place] [address] Nucleated RBC/100 WBC (Bld) [Ratio] 0.0 /100 WBCs Normal 0.0-0.0 [facility] Comment on above: Performed By: #### 5 7021-8 ####ANDI Cotter ([id number])[facility] ([facility])[address] [place] [address] Platelets (Bld) [#/Vol] 178 x10*3/uL Normal 150-450 [facility] Comment on above: Performed By: #### 5 7021-8 ####ANDI Cotter ([id number])[facility] ([facility])[address] [place] [address] RBC (Bld) [#/Vol] 3.89 x10*6/uL Low 4.00-5.20 [facility] Comment on above: Performed By: #### 5 7021-8 ####ANDI Cotter ([id number])[facility] ([facility])[id number] [place] [address] WBC (Bld) [#/Vol] 5.0 x10*3/uL Normal 4.4-11.3 [facility] Comment on above: Performed By: #### 5 7021-8 ####ANDI Cotter ([id number])[facility] ([facility])[address] [place] [address] Coagulation tissue factor in ducedon 12-08-2023 PT Coag (PPP) [Time] 12.3 s Normal 9.8-12.8 [facility] Comment on above: Performed By: #### 5 902-2 ####ANDI Cotter ([id number])[facility] ([facility])[address] [place] [address] Glucose Test strip manual (B ld) [Mass/Vol]on 12-08-2023 Glucose [Mass/Vol] 193 mg/dL High 74 - 99 mg/dL [facility] Interpretation and review of laboratory results Abnormal [facility] Glucose [Mass/Vol] 193 mg/dL High 74-99 [facility] Comment on above: Performed By: #### 2 341-6 ####ANDI Cotter ([id number])[facility] ([facility])[address] [place] [address] Glucose [Mass/Vol] 199 mg/dL High 74 - 99 mg/dL [facility] Interpretation and review of laboratory results Abnormal [facility] Glucose [Mass/Vol] 199 mg/dL High 74-99 [facility] Comment on above: Performed By: #### 2 341-6 ####ANDI Cotter ([id number])[facility] ([facility])[address] [place] [address] Hepatic function 2000 panelo n 12-08-2023 Albumin BCP dye [Mass/Vol] 3.9 g/dL 3.4 - 5.0 g/dL [facility] ALP [Catalytic activity/Vol] 107 U/L 33 - 110 U/L [facility] ALT With P-5'-P [Catalytic activity/Vol] 62 U/L High 7 - 45 U/L [facility] Comment on above: Patients treated wit h Sulfasalazine may generate falsely decreased results for ALT. AST With P-5'-P [Catalytic activity/Vol] 42 U/L High 9 - 39 U/L [facility] Bilirubin [Mass/Vol] 0.4 mg/dL 0.0 - 1 .2 mg/dL [facility] Bilirubin.direct [Mass/Vol] 0.1 mg/dL 0.0 - 0.3 mg/dL [facility] Interpretation and review of laboratory results Abnormal [facility] Protein [Mass/Vol] 6.5 g/dL 6.4 - 8.2 g/dL [facility] Albumin BCP dye [Mass/Vol] 3.9 g/dL Normal 3.4-5.0 [facility] Comment on above: Performed By: #### 2 4325-3 ####ANDI Cotter ([id number])[facility] ([facility])[address] [place] [address] ALP [Catalytic activity/Vol] 107 U/L Normal 33-110 [facility] Comment on above: Performed By: #### 2 4325-3 ####ANDI Cotter ([id number])[facility] ([facility])[address] [place] [address] ALT With P-5'-P [Catalytic activity/Vol] 62 U/L High 7-45 [facility] Comment on above: Result Comment: Evelyn ents treated with Sulfasalazine may generate falsely decreased results for ALT. Performed By: #### 2 4325-3 ####ANDI Cotter ([id number])[facility] ([facility])[address] [place] [address] AST With P-5'-P [Catalytic activity/Vol] 42 U/L High 9-39 [facility] Comment on above: Performed By: #### 2 4325-3 ####ANDI Cotter ([id number])[facility] ([facility])[address] [place] [address] Bilirubin [Mass/Vol] 0.4 mg/dL Normal 0.0-1.2 [facility] Comment on above: Performed By: #### 2 4325-3 ####ANDI Cotter ([id number])[facility] ([facility])[address] [place] [address] Bilirubin.direct [Mass/Vol] 0.1 mg/dL Normal 0.0-0.3 [facility] Comment on above: Performed By: #### 2 4325-3 ####ANDI Cotter ([id number])[facility] ([facility])[address] [place] [address] Protein [Mass/Vol] 6.5 g/dL Normal 6.4-8.2 [facility] Comment on above: Performed By: #### 2 4325-3 ####ANDI CHAUDHARY L ([id number])[facility] ([facility])[address] [place] [address] MRSA isol Org specific cx Ql (Nose)Ordered By: Maral Alonzo on 12-08-2023 Interpretation and review of laboratory results Abnormal [facility] Staphylococcus sp identified Org specific cx Nom (Unsp spec) Isolated: Methicillin Resistant Staphylococcus aureus (MRSA) Abnormal [facility] Magnesiumon 12-08-2023 Magnesium [Mass/Vol] 1.89 mg/dL 1.60 - 2.40 mg/dL [facility] Magnesium [Mass/Vol] 1.89 mg/dL Normal 1.60-2.40 [facility] Comment on above: Performed By: #### 1 9123-9 ####ANDI Cotter ([id number])[facility] [facility] ([facility])[address] [place] [address] No Panel Informationon 12-07 Interpretation and review of laboratory results Normal [facility] PT Coag (PPP) [Time]on 12-07 INR Coag (PPP) [Relative time] 1.1 {INR} 0.9 - 1.1 [facility] Interpretation and review of laboratory results Normal [facility] INR Coag (PPP) [Relative time] 1.1 Normal 0.9-1.1 [facility] Comment on above: Performed By: #### 5 902-2 ####ANDI Cotter ([id number])[facility] ([facility])[address] [place], [place] [address] Phosphateon 12-08-2023 Phosphate [Mass/Vol] 3.8 mg/dL Normal 2.5-4.9 [facility] Comment on above: Result Comment: The performance characteristics of phosphorus testing in heparinized plasma have been validated by the individual laboratory site where testing is performed. Testing on heparinized plasma is not approved by the FDA; however, such approval is not necessary. Performed By: #### 2 777-1 ####ANDI Cotter ([id number])[facility] ([facility])[address] [place], [place] [address] Phosphoruson 12-08-2023 Phosphate [Mass/Vol] 3.8 mg/dL 2.5 - 4 .9 mg/dL [facility] Comment on above: The performance timi acteristics of phosphorus testing in heparinized plasma have been validated by the individual laboratory site where testing is performed. Testing on heparinized plasma is not approved by the FDA; however, such approval is not necessary. Protime-INRon 12-08-2023 PT Coag (PPP) [Time] 12.3 s [facility].doppler Lower extremity v ein - bilateralon 12-08-2023 [place] [address] and Vascular Lab Report [facility] LOWER EXTREMITY VENOUS DUPLEX BILATERAL Patient Name: DOROTHEA Stanford MATY Lees Physician: [id number] Molina Wu DO Study Date: 12/08/2023 Ordering [id number] NANCY Dial Physician: JHONATAN MRN/PID: [id number] Technologist: Adrien Fish T Technologist 2: Date of /Age: 4 1975 / 47 years Gender: F Admission Status: Inpatient Location [facility] Performed: Diagnosis/ICD: Acute embolism and thrombosis of unspecified deep veins of bilateral distal lower extremity-I82.4Z3 CPT Codes: 30390 Peripheral venous duplex scan for DVT complete CONCLUSIONS: Right Lower Venous: There are chronic changes visualized in the popliteal vein. The right PTV and peroneal veins were visualized in segments due to swelling, therefore can no rule out thrombus in non-visualized areas. Remainder of the leg appears patent with no evidence of DVT. Left Lower Venous: No evidence of acute deep vein thrombus visualized in the left lower extremity. Imaging & Doppler Findings: Right Compressible Thrombus Flow Distal External Iliac None Spontaneous/Phasic CFV Yes None Spontaneous/Phasic PFV Yes None FV Proximal Yes None Spontaneous/Phasic FV Mid Yes None FV Distal Yes None Popliteal Yes Chronic Spontaneous/Phasic Left Compress Thrombus Flow Distal External Iliac None Spontaneous/Phasic CFV Yes None Spontaneous/Phasic PFV Yes None FV Proximal Yes None Spontaneous/Phasic FV Mid Yes None FV Distal Yes None Popliteal Yes None Spontaneous/Phasic Peroneal Yes None PTV Yes None [id number] Molina Wu DO Final Molina Weaver DO - 12/08/2023 [place] [address] and Vascular Lab Report VASC US LOWER EXTREMITY VENOUS DUPLEX BILATERAL Patient Name: DOROTHEA RUTLEDGE Yoana Physician: [id number] Molina Wu DO Study Date: 12/08/2023 Ordering [id number] NANCY Dial Physician: JHONATAN MRN/PID: [id number] Technologist: Adrien Fish T Technologist 2: Date of /Age: 4 1975 / 47 years Gender: F Admission Status: Inpatient Location [facility] Performed: Diagnosis/ICD: Acute embolism and thrombosis of unspecified deep veins of bilateral distal lower extremity-I82.4Z3 CPT Codes: 26268 Peripheral venous duplex scan for DVT complete CONCLUSIONS: Right Lower Venous: There are chronic changes visualized in the popliteal vein. The right PTV and peroneal veins were visualized in segments due to swelling, therefore can no rule out thrombus in non-visualized areas. Remainder of the leg appears patent with no evidence of DVT. Left Lower Venous: No evidence of acute deep vein thrombus visualized in the left lower extremity. Imaging & Doppler Findings: Right Compressible Thrombus Flow Distal External Iliac None Spontaneous/Phasic CFV Yes None Spontaneous/Phasic PFV Yes None FV Proximal Yes None Spontaneous/Phasic FV Mid Yes None FV Distal Yes None Popliteal Yes Chronic Spontaneous/Phasic Left Compress Thrombus Flow Distal External Iliac None Spontaneous/Phasic CFV Yes None Spontaneous/Phasic PFV Yes None FV Proximal Yes None Spontaneous/Phasic FV Mid Yes None FV Distal Yes None Popliteal Yes None Spontaneous/Phasic Peroneal Yes None PTV Yes None [id number] Molina Wu DO Final [facility] Work Phone: Radiology Study observation (narrative) [facility] Work Phone: US.doppler Lower extremity v ein - bilateralOrdered By: Molina Wu on 12-08-2023 [facility] Work Phone: VASC US LOWER EXTREMITY VENO US DUPLEX BILATERALon 12-08-2023 VASC US LOWER EXTREMITY VENOUS DUPLEX BILATERAL Normal [facility] Basic metabolic 2000 panelon 12-07-2023 Anion gap [Moles/Vol] 17 mmol/L 10 - 2 0 mmol/L [facility] Calcium [Mass/Vol] 9.3 mg/dL 8.6 - 10. 6 mg/dL [facility] Chloride [Moles/Vol] 96 mmol/L Low 98 - 10 7 mmol/L [facility] CO2 [Moles/Vol] 25 mmol/L 21 - 32 mmol/L [facility] Creatinine [Mass/Vol] 0.74 mg/dL 0.50 - 1.05 mg/dL [facility] eGFR - PINF [facility] Comment on above: Calculations of estuardo mated GFR are performed using the 2020 CKD-EPI Study Refit equation without the race variable for the IDMS-Traceable creatinine methods. https://jasn.asnjournals.org/content//ASN.249023 8804 Glucose [Mass/Vol] 202 mg/dL High 74 - 99 mg/dL [facility] Interpretation and review of laboratory results Abnormal [facility] Potassium [Moles/Vol] 3.3 mmol/L Low 3.5 - 5.3 mmol/L [facility] Sodium [Moles/Vol] 135 mmol/L Low 136 - 145 mmol/L [facility] Urea nitrogen [Mass/Vol] 16 mg/dL 6 - 23 mg/dL [facility] Anion gap [Moles/Vol] 17 mmol/L Normal 10-20 [facility] Comment on above: Performed By: #### 2 4321-2 ####ANDI Cotter ([id number])[facility] ([facility])[address] [place] [address] Calcium [Mass/Vol] 9.3 mg/dL Normal 8.6-10.6 [facility] Comment on above: Performed By: #### 2 4321-2 ####ANDI CHAUDHARY L ([id number])[facility] ([facility])[address] [place] [address] Chloride [Moles/Vol] 96 mmol/L Low 98-107 [facility] Comment on above: Performed By: #### 2 4321-2 ####ANDI Cotter ([id number])[facility] ([facility])[address] [place] [address] CO2 [Moles/Vol] 25 mmol/L Normal 21-32 [facility] Comment on above: Performed By: #### 2 4321-2 ####ANDI Cotter ([id number])[facility] ([facility])[address] [place] [address] Creatinine [Mass/Vol] 0.74 mg/dL Normal 0.50-1.05 [facility] Comment on above: Performed By: #### 2 4321-2 ####ANDI Cotter ([id number])[facility] ([facility])[address] [place] [address] GFR/1.73 sq M.predicted MDRD (S/P/Bld) [Vol rate/Area] mL/min/{1.73_m2} Normal >60 [facility] Comment on above: Result Comment: Calc ulations of estimated GFR are performed using the 2020 CKD-EPI Study Refit equation without the race variable for the IDMS-Traceable creatinine methods.https://jasn.asnjournals.org/content/early/ N.1858991929 Performed By: #### 2 4321-2 ####ANDI Cotter ([id number])[facility] ([facility])[address] [place] [address] Glucose [Mass/Vol] 202 mg/dL High 74-99 [facility] Comment on above: Performed By: #### 2 4321-2 ####ANDI Cotter ([id number])[facility] ([facility])[address] [place] [address] Potassium [Moles/Vol] 3.3 mmol/L Low 3.5-5.3 [facility] Comment on above: Performed By: #### 2 4321-2 ####ANDI Cotter ([id number])[facility] ([facility])[address] [place] [address] Sodium [Moles/Vol] 135 mmol/L Low 136-145 [facility] Comment on above: Performed By: #### 2 4321-2 ####ANDI CHAUDHARY L ([id number])[facility] ([facility])[address] [place] [address] Urea nitrogen [Mass/Vol] 16 mg/dL Normal 6-23 [facility] Comment on above: Performed By: #### 2 4321-2 ####ANDI Cotter ([id number])[facility] ([facility])[address] [place] [address] CBC W Auto Differential pane l (Bld)on 12-07-2023 Basophils (Bld) [#/Vol] 0.04 10*3/uL [facility] Basophils/100 WBC (Bld) 0.7 % 0.0 - 2.0 % [facility] Eosinophils (Bld) [#/Vol] 0.17 10*3/uL [facility] Eosinophils/100 WBC (Bld) 2.9 % 0.0 - 6.0 % [facility] Erythrocyte distribution width (RBC) [Ratio] 13.9 % 11.5 - 14.5 % [facility] Hematocrit (Bld) [Volume fraction] 39.7 % 36.0 - 46.0 % [facility] Hemoglobin (Bld) [Mass/Vol] 12.5 g/dL 12.0 - 16.0 g/dL [facility] Immature granulocytes (Bld) [#/Vol] 0.02 10*3/uL [facility] Immature granulocytes/100 WBC (Bld) 0.3 % 0.0 - 0.9 % [facility] Comment on above: Immature Granulocyte Count (IG) includes promyelocytes, myelocytes and metamyelocytes but does not include bands. Percent differential counts (%) should be interpreted in the context of the absolute cell counts (cells/UL). Interpretation and review of laboratory results Abnormal [facility] Lymphocytes (Bld) [#/Vol] 1.63 10*3/uL [facility] Lymphocytes/100 WBC (Bld) 27.4 % 13.0 - 44.0 % [facility] MCH (RBC) [Entitic mass] 28.2 pg 26.0 - 34.0 pg [facility] MCHC (RBC) [Mass/Vol] 31.5 g/dL Low 32.0 - 36.0 g/dL [facility] MCV (RBC) [Entitic vol] 90 fL 80 - 100 fL [facility] Monocytes (Bld) [#/Vol] 0.48 10*3/uL [facility] Monocytes/100 WBC (Bld) 8.1 % 2.0 - 10.0 % [facility] Neutrophils (Bld) [#/Vol] 3.60 10*3/uL [facility] Comment on above: Percent differential counts (%) should be interpreted in the context of the absolute cell counts (cells/uL). Neutrophils/100 WBC (Bld) 60.6 % 40.0 - 80.0 % [facility] Nucleated RBC/100 WBC (Bld) [Ratio] 0.0 % [facility] Platelets (Bld) [#/Vol] 231 10*3/uL [facility] RBC (Bld) [#/Vol] 4.43 10*6/uL [facility] WBC (Bld) [#/Vol] 5.9 10*3/uL [facility] Basophils (Bld) [#/Vol] 0.04 x10*3/uL Normal 0.00-0.10 [facility] Comment on above: Performed By: #### 5 7021-8 ####ANDI Cotter ([id number])[facility] ([facility])[address] [place] [address] Basophils/100 WBC (Bld) 0.7 % Normal 0.0-2.0 [facility] Comment on above: Performed By: #### 5 7021-8 ####ANDI Cotter ([id number])[facility] ([facility])[address] [place] [address] Eosinophils (Bld) [#/Vol] 0.17 x10*3/uL Normal 0.00-0.70 [facility] Comment on above: Performed By: #### 5 7021-8 ####ANDI Cotter ([id number])[facility] ([facility])[address] [place] [address] Eosinophils/100 WBC (Bld) 2.9 % Normal 0.0-6.0 [facility] Comment on above: Performed By: #### 5 7021-8 ####ANDI Cotter ([id number])[facility] ([facility])[address] [place] [address] Erythrocyte distribution width (RBC) [Ratio] 13.9 % Normal 11.5-14.5 [facility] Comment on above: Performed By: #### 5 7021-8 ####ANDI Cotter ([id number])[facility] ([facility])[address] [place] [address] Hematocrit (Bld) [Volume fraction] 39.7 % Normal 36.0-46.0 [facility] Comment on above: Performed By: #### 5 7021-8 ####ANDI Cotter ([id number])[facility] ([facility])[address] [place] [address] Hemoglobin (Bld) [Mass/Vol] 12.5 g/dL Normal 12.0-16.0 [facility] Comment on above: Performed By: #### 5 7021-8 ####ANDI Cotter ([id number])[facility] ([facility])[address] [place] [address] Immature granulocytes (Bld) [#/Vol] 0.02 x10*3/uL Normal 0.00-0.70 [facility] Comment on above: Performed By: #### 5 7021-8 ####ANDI Cotter ([id number])[facility] ([facility])[address] [place] [address] Immature granulocytes/100 WBC (Bld) 0.3 % Normal 0.0-0.9 [facility] Comment on above: Result Comment: Debbie ture Granulocyte Count (IG) includes promyelocytes, myelocytes and metamyelocytes but does not include bands. Percent differential counts (%) should be interpreted in the context of the absolute cell counts (cells/UL). Performed By: #### 5 7021-8 ####ANDI Cotter ([id number])[facility] ([facility])[address] [place] [address] Lymphocytes (Bld) [#/Vol] 1.63 x10*3/uL Normal 1.20-4.80 [facility] Comment on above: Performed By: #### 5 7021-8 ####ANDI Cotter ([id number])[facility] ([facility])[address] [place] [address] Lymphocytes/100 WBC (Bld) 27.4 % Normal 13.0-44.0 [facility] Comment on above: Performed By: #### 5 7021-8 ####ANDI Cotter ([id number])[facility] ([facility])[address] [place] [address] MCH (RBC) [Entitic mass] 28.2 pg Normal 26.0-34.0 [facility] Comment on above: Performed By: #### 5 7021-8 ####ANDI Cotter ([id number])[facility] ([facility])[address] [place] [address] MCHC (RBC) [Mass/Vol] 31.5 g/dL Low 32.0-36.0 [facility] Comment on above: Performed By: #### 5 7021-8 ####ANDI Cotter ([id number])[facility] ([facility])[address] [place] [address] MCV (RBC) [Entitic vol] 90 fL Normal 80-100 [facility] Comment on above: Performed By: #### 5 7021-8 ####ANDI Cotter ([id number])[facility] ([facility])[address] [place] [address] Monocytes (Bld) [#/Vol] 0.48 x10*3/uL Normal 0.10-1.00 [facility] Comment on above: Performed By: #### 5 7021-8 ####ANDI RENEEER L ([id number])[facility] ([facility])[address] [place] [address] Monocytes/100 WBC (Bld) 8.1 % Normal 2.0-10.0 [facility] Comment on above: Performed By: #### 5 7021-8 ####ANDI RENEEER L ([id number])[facility] ([facility])[address] [place] [address] Neutrophils (Bld) [#/Vol] 3.60 x10*3/uL Normal 1.20-7.70 [facility] Comment on above: Result Comment: Perc ent differential counts (%) should be interpreted in the context of the absolute cell counts (cells/uL). Performed By: #### 5 7021-8 ####ANDI CHAUDHARY L ([id number])[facility] ([facility])[address] [place] [address] Neutrophils/100 WBC (Bld) 60.6 % Normal 40.0-80.0 [facility] Comment on above: Performed By: #### 5 7021-8 ####ANDI Cotter ([id number])[facility] ([facility])[address] [place] [address] Nucleated RBC/100 WBC (Bld) [Ratio] 0.0 /100 WBCs Normal 0.0-0.0 [facility] Comment on above: Performed By: #### 5 7021-8 ####ANDI CHAUDHARY L ([id number])[facility] ([facility])[address] [place] [address] Platelets (Bld) [#/Vol] 231 x10*3/uL Normal 150-450 [facility] Comment on above: Performed By: #### 5 7021-8 ####ANDI CHAUDHARY L ([id number])[facility] ([facility])[address] [place] [address] RBC (Bld) [#/Vol] 4.43 x10*6/uL Normal 4.00-5.20 [facility] Comment on above: Performed By: #### 5 7021-8 ####ANDI Cotter ([id number])[facility] ([facility])[address] [place] [address] WBC (Bld) [#/Vol] 5.9 x10*3/uL Normal 4.4-11.3 [facility] Comment on above: Performed By: #### 5 7021-8 ####ANDI Cotter ([id number])[facility] ([facility])[address] [place] [address] CBC panel Auto (Bld)on 12-06 Erythrocyte distribution width (RBC) [Ratio] 13.7 % 11.5 - 14.5 % [facility] Hematocrit (Bld) [Volume fraction] 36.4 % 36.0 - 46.0 % [facility] Hemoglobin (Bld) [Mass/Vol] 12.0 g/dL 12.0 - 16.0 g/dL [facility] Interpretation and review of laboratory results Normal [facility] MCH (RBC) [Entitic mass] 29.6 pg 26.0 - 34.0 pg [facility] MCHC (RBC) [Mass/Vol] 33.0 g/dL 32.0 - 36.0 g/dL [facility] MCV (RBC) [Entitic vol] 90 fL 80 - 100 fL [facility] Nucleated RBC/100 WBC (Bld) [Ratio] 0.0 % [facility] Platelets (Bld) [#/Vol] 207 10*3/uL [facility] RBC (Bld) [#/Vol] 4.06 10*6/uL [facility] WBC (Bld) [#/Vol] 5.8 10*3/uL [facility] Erythrocyte distribution width (RBC) [Ratio] 13.7 % Normal 11.5-14.5 [facility] Comment on above: Performed By: #### 5 8410-2 ####ANDI Cotter ([id number])[facility] ([facility])[address] [place] [address] Hematocrit (Bld) [Volume fraction] 36.4 % Normal 36.0-46.0 [facility] Comment on above: Performed By: #### 5 8410-2 ####ANDI Cotter ([id number])[facility] ([facility])[address] [place] [address] Hemoglobin (Bld) [Mass/Vol] 12.0 g/dL Normal 12.0-16.0 [facility] Comment on above: Performed By: #### 5 8410-2 ####ANDI Cotter ([id number])[facility] ([facility])[address] [place] [address] MCH (RBC) [Entitic mass] 29.6 pg Normal 26.0-34.0 [facility] Comment on above: Performed By: #### 5 8410-2 ####ANDI Cotter ([id number])[facility] ([facility])[address] [place] [address] MCHC (RBC) [Mass/Vol] 33.0 g/dL Normal 32.0-36.0 [facility] Comment on above: Performed By: #### 5 8410-2 ####ANDI Cotter ([id number])[facility] ([facility])[address] [place] [address] MCV (RBC) [Entitic vol] 90 fL Normal 80-100 [facility] Comment on above: Performed By: #### 5 8410-2 ####ANDI Cotter ([id number])[facility] ([facility])[address] [place] [address] Nucleated RBC/100 WBC (Bld) [Ratio] 0.0 /100 WBCs Normal 0.0-0.0 [facility] Comment on above: Performed By: #### 5 8410-2 ####ANDI Cotter ([id number])[facility] ([facility])[address] [place] [address] Platelets (Bld) [#/Vol] 207 x10*3/uL Normal 150-450 [facility] Comment on above: Performed By: #### 5 8410-2 ####ANDI Cotter ([id number])[facility] ([facility])[address] [place] [address] RBC (Bld) [#/Vol] 4.06 x10*6/uL Normal 4.00-5.20 [facility] Comment on above: Performed By: #### 5 8410-2 ####ANDI Cotter ([id number])[facility] ([facility])[address] [place] [address] WBC (Bld) [#/Vol] 5.8 x10*3/uL Normal 4.4-11.3 [facility] Comment on above: Performed By: #### 5 8410-2 ####ANDI Cotter ([id number])[facility] ([facility])[address] [place] [address] Coagulation tissue factor in ducedon 12-07-2023 PT Coag (PPP) [Time] 12.9 s High 9.8-12.8 [facility] Comment on above: Performed By: #### 5 902-2 ####ANDI Cotter ([id number])[facility] ([facility])[address] [place] [address] Electrocardiogram, 12-lead P RN ACS symptomsOrdered By: Evan Judge on 12-07-2023 Atrial Rate 111 BPM [facility] Work Phone: P [place] 41 degrees [facility] Work Phone: P Offset 207 ms [facility] Work Phone: P Onset 152 ms [facility] Work Phone: DC Interval 138 ms [facility] Work Phone: Q Onset 221 ms [facility] Work Phone: QRS Count 18 beats [facility] Work Phone: QRS Duration 84 ms [facility] Work Phone: QT Interval 350 ms [facility] Work Phone: QTC Calculation(Bazett) 476 ms [facility] Work Phone: QTC Fredericia 429 ms [facility] Work Phone: R [place] 44 degrees [facility] Work Phone: T [place] 40 degrees [facility] Work Phone: T Offset 396 ms [facility] Work Phone: Ventricular Rate 111 BPM [facility] Work Phone: [facility] Work Phone: Electrocardiogram, 12-lead P RN ACS symptomson 12-07-2023 Sinus tachycardia Otherwise normal ECG When compared with ECG of 10-NOV-2023 13:41, Minimal criteria for Anterior infarct are no longer Present Confirmed by Evan Judge ([id number]) on 12/07/2023 4:49:43 PM MUSE Evan Judge MD - 12/07/2023 Sinus tachycardia Otherwise normal ECG When compared with ECG of 10-NOV-2023 13:41, Minimal criteria for Anterior infarct are no longer Present Confirmed by Evan Judge ([id number]) on 12/07/2023 4:49:43 PM [facility] Work Phone: Glucose Test strip manual (B ld) [Mass/Vol]on 12-07-2023 Glucose [Mass/Vol] 227 mg/dL High 74 - 99 mg/dL [facility] Interpretation and review of laboratory results Abnormal [facility] Glucose [Mass/Vol] 227 mg/dL High 74-99 [facility] Comment on above: Performed By: #### 2 341-6 ####ANDI Cotter ([id number])[facility] ([facility])[id number] [place] [address] Glucose [Mass/Vol] 182 mg/dL High 74 - 99 mg/dL [facility] Interpretation and review of laboratory results Abnormal [facility] Glucose [Mass/Vol] 182 mg/dL High 74-99 [facility] Comment on above: Performed By: #### 2 341-6 ####ANDI Cotter ([id number])[facility] ([facility])[address] [place] [address] Glucose [Mass/Vol] 174 mg/dL High 74 - 99 mg/dL [facility] Interpretation and review of laboratory results Abnormal [facility] Glucose [Mass/Vol] 174 mg/dL High 74-99 [facility] Comment on above: Performed By: #### 2 341-6 ####ANDI Cotter ([id number])[facility] ([facility])[address] [place] [address] Glucose [Mass/Vol] 211 mg/dL High 74 - 99 mg/dL [facility] Interpretation and review of laboratory results Abnormal [facility] Glucose [Mass/Vol] 211 mg/dL High 74-99 [facility] Comment on above: Performed By: #### 2 341-6 ####ANDI Cotter ([id number])[facility] ([facility])[address] [place] [address] Glucose [Mass/Vol] 234 mg/dL High 74 - 99 mg/dL [facility] Interpretation and review of laboratory results Abnormal [facility] Glucose [Mass/Vol] 234 mg/dL High 74-99 [facility] Comment on above: Performed By: #### 2 341-6 ####ANDI Cotter ([id number])[facility] ([facility])[address] [place] [address] Heparin Assay, UFHon 024 Heparin unfractionated Chromogenic method Qn (PPP) 0.2 See Comment Below for Therapeutic Ranges IU/mL [facility] Heparin unfractionated Chrom ogenic method Qn (PPP)on 12-07-2023 Interpretation and review of laboratory results Normal [facility] The therapeutic reference range for UFH may be either 0.3-0.6 IU/mL or 0.3-0.7 IU/mL based on the clinical setting for anticoagulant therapy and the associated nomogram used. For Heparin dosing guidelines based on clinical scenario and Heparin Assay results, please refer to local Pharmacy and the [facility] Guidelines for Anticoagulation Therapy available on the [facility] intranet at: [email or web address] [facility] Hepatic function 2000 panelo n 12-07-2023 Albumin BCP dye [Mass/Vol] 4.3 g/dL 3.4 - 5.0 g/dL [facility] ALP [Catalytic activity/Vol] 112 U/L High 33 - 110 U/L [facility] ALT With P-5'-P [Catalytic activity/Vol] 70 U/L High 7 - 45 U/L [facility] Comment on above: Patients treated wit h Sulfasalazine may generate falsely decreased results for ALT. AST With P-5'-P [Catalytic activity/Vol] 39 U/L 9 - 39 U/L [facility] Bilirubin [Mass/Vol] 0.5 mg/dL 0.0 - 1 .2 mg/dL [facility] Bilirubin.direct [Mass/Vol] 0.2 mg/dL 0.0 - 0.3 mg/dL [facility] Interpretation and review of laboratory results Abnormal [facility] Protein [Mass/Vol] 7.3 g/dL 6.4 - 8.2 g/dL [facility] Albumin BCP dye [Mass/Vol] 4.3 g/dL Normal 3.4-5.0 [facility] Comment on above: Performed By: #### 2 4325-3 ####ANDI Cotter ([id number])[facility] ([facility])[address] [place] [address] ALP [Catalytic activity/Vol] 112 U/L High 33-110 [facility] Comment on above: Performed By: #### 2 4325-3 ####ANDI Cotter ([id number])[facility] ([facility])[address] [place] [address] ALT With P-5'-P [Catalytic activity/Vol] 70 U/L High 7-45 [facility] Comment on above: Result Comment: Evelyn ents treated with Sulfasalazine may generate falsely decreased results for ALT. Performed By: #### 2 4325-3 ####ANDI Cotter ([id number])[facility] ([facility])[address] [place] [address] AST With P-5'-P [Catalytic activity/Vol] 39 U/L Normal 9-39 [facility] Comment on above: Performed By: #### 2 4325-3 ####ANDI Cotter ([id number])[facility] ([facility])[address] [place] [address] Bilirubin [Mass/Vol] 0.5 mg/dL Normal 0.0-1.2 [facility] Comment on above: Performed By: #### 2 4325-3 ####ANDI Cotter ([id number])[facility] ([facility])[address] [place] [address] Bilirubin.direct [Mass/Vol] 0.2 mg/dL Normal 0.0-0.3 [facility] Comment on above: Performed By: #### 2 4325-3 ####ANDI Cotter ([id number])[facility] ([facility])[address] [place] [address] Protein [Mass/Vol] 7.3 g/dL Normal 6.4-8.2 [facility] Comment on above: Performed By: #### 2 4325-3 ####ANDI Cotter ([id number])[facility] ([facility])[address] [place] [address] Magnesiumon 12-07-2023 Magnesium [Mass/Vol] 1.98 mg/dL 1.60 - 2.40 mg/dL [facility] Magnesium [Mass/Vol] 1.98 mg/dL Normal 1.60-2.40 [facility] Comment on above: Performed By: #### 1 9123-9 ####ANDI Cotter ([id number])[facility] ([facility])[address] [place], [place] [address] No Panel Informationon 12-06 Interpretation and review of laboratory results Normal [facility] PT Coag (PPP) [Time]on 12-06 INR Coag (PPP) [Relative time] 1.1 {INR} 0.9 - 1.1 [facility] Interpretation and review of laboratory results Abnormal [facility] INR Coag (PPP) [Relative time] 1.1 Normal 0.9-1.1 [facility] Comment on above: Performed By: #### 5 902-2 ####ANDI Cotter ([id number])[facility] ([facility])[address] [place] [address] Phosphateon 12-07-2023 Phosphate [Mass/Vol] 3.2 mg/dL Normal 2.5-4.9 [facility] Comment on above: Result Comment: The performance characteristics of phosphorus testing in heparinized plasma have been validated by the individual laboratory site where testing is performed. Testing on heparinized plasma is not approved by the FDA; however, such approval is not necessary. Performed By: #### 2 777-1 ####ANDI Cotter ([id number])[facility] ([facility])[address] [place] [address] Phosphoruson 12-07-2023 Phosphate [Mass/Vol] 3.2 mg/dL 2.5 - 4 .9 mg/dL [facility] Comment on above: The performance timi acteristics of phosphorus testing in heparinized plasma have been validated by the individual laboratory site where testing is performed. Testing on heparinized plasma is not approved by the FDA; however, such approval is not necessary. Protime-INRon 12-07-2023 PT Coag (PPP) [Time] 12.9 s High [facility] Staphylococcus aureus.methic illin resistant isolateon 12-07-2023 MRSA isol Org specific cx Ql (Nose) Abnormal [facility] Comment on above: Performed By: #### 5 2969-3 ####ANDI Cotter ([id number])[facility] ([facility])[address] [place] [address] Basic metabolic 2000 panelon 12-06-2023 Anion gap [Moles/Vol] 17 mmol/L 10 - 2 0 mmol/L [facility] Calcium [Mass/Vol] 9.8 mg/dL 8.6 - 10. 6 mg/dL [facility] Chloride [Moles/Vol] 98 mmol/L 98 - 10 7 mmol/L [facility] CO2 [Moles/Vol] 26 mmol/L 21 - 32 mmol/L [facility] Creatinine [Mass/Vol] 0.70 mg/dL 0.50 - 1.05 mg/dL [facility] eGFR - PINF [facility] Comment on above: Calculations of estuardo mated GFR are performed using the 2020 CKD-EPI Study Refit equation without the race variable for the IDMS-Traceable creatinine methods. https://jasn.asnjournals.org/content/early/ASN.509050 5097 Glucose [Mass/Vol] 162 mg/dL High 74 - 99 mg/dL [facility] Interpretation and review of laboratory results Abnormal [facility] Potassium [Moles/Vol] 3.8 mmol/L 3.5 - 5.3 mmol/L [facility] Sodium [Moles/Vol] 137 mmol/L 136 - 145 mmol/L [facility] Urea nitrogen [Mass/Vol] 18 mg/dL 6 - 23 mg/dL [facility] Anion gap [Moles/Vol] 17 mmol/L Normal 10-20 [facility] Comment on above: Performed By: #### 2 4321-2 ####ANDI Cotter ([id number])[facility] ([facility])[address] [place] [address] Calcium [Mass/Vol] 9.8 mg/dL Normal 8.6-10.6 [facility] Comment on above: Performed By: #### 2 4321-2 ####ANDI Cotter ([id number])[facility] ([facility])[address] [place] [address] Chloride [Moles/Vol] 98 mmol/L Normal 98-107 [facility] Comment on above: Performed By: #### 2 4321-2 ####ANDI Cotter ([id number])[facility] ([facility])[address] [place] [address] CO2 [Moles/Vol] 26 mmol/L Normal 21-32 [facility] Comment on above: Performed By: #### 2 4321-2 ####ANDI Cotter ([id number])[facility] ([facility])[address] [place] [address] Creatinine [Mass/Vol] 0.70 mg/dL Normal 0.50-1.05 [facility] Comment on above: Performed By: #### 2 4321-2 ####ANDI Cotter ([id number])[facility] ([facility])[address] [place] [address] GFR/1.73 sq M.predicted MDRD (S/P/Bld) [Vol rate/Area] mL/min/{1.73_m2} Normal >60 [facility] Comment on above: Result Comment: Calc ulations of estimated GFR are performed using the 2020 CKD-EPI Study Refit equation without the race variable for the IDMS-Traceable creatinine methods.https://jasn.asnjournals.org/content/early/ N.1557640493 Performed By: #### 2 4321-2 ####ANDI Cotter ([id number])[facility] ([facility])[address] [place] [address] Glucose [Mass/Vol] 162 mg/dL High 74-99 [facility] Comment on above: Performed By: #### 2 4321-2 ####ANDI Cotter ([id number])[facility] ([facility])[address] [place] [address] Potassium [Moles/Vol] 3.8 mmol/L Normal 3.5-5.3 [facility] Comment on above: Performed By: #### 2 4321-2 ####ANDI Cotter ([id number])[facility] ([facility])[address] [place] [address] Sodium [Moles/Vol] 137 mmol/L Normal 136-145 [facility] Comment on above: Performed By: #### 2 4321-2 ####ANDI Cotter ([id number])[facility] ([facility])[address] [place] [address] Urea nitrogen [Mass/Vol] 18 mg/dL Normal 6-23 [facility] Comment on above: Performed By: #### 2 4321-2 ####ANDI Cotter ([id number])[facility] ([facility])[address] [place] [address] Blood type and Indirect anti body screen panel (Bld)on 12-06-2023 ABO group Nom (Bld) A [facility] Blood group antibody screen Ql Negative [facility] D Ag Ql (Bld) Negative [facility] Review your Rh Negat rowena female patient's potential need for Rh Immune Globulin (RhIg)administration. [facility] ABO group Nom (Bld) A Normal [facility] Comment on above: Order Comment: Revie w your Rh Negative female patient's potential need for Rh Immune Globulin (RhIg)administration. Performed By: #### 3 4532-2 ####ANDI Cotter ([id number])[facility] ([facility])[address] [place] [address] Blood group antibody screen Ql Negative Normal [facility] Comment on above: Order Comment: Revie w your Rh Negative female patient's potential need for Rh Immune Globulin (RhIg)administration. Performed By: #### 3 4532-2 ####ANDI Cotter ([id number])[facility] ([facility])[address] [place] [address] D Ag Ql (Bld) Negative Normal [facility] Comment on above: Order Comment: Revie w your Rh Negative female patient's potential need for Rh Immune Globulin (RhIg)administration. Performed By: #### 3 4532-2 ####ANDI Cotter ([id number])[facility] ([facility])[address] [place] [address] CBC W Auto Differential pane l (Bld)on 12-06-2023 Basophils (Bld) [#/Vol] 0.06 10*3/uL [facility] Basophils/100 WBC (Bld) 0.9 % 0.0 - 2.0 % [facility] Eosinophils (Bld) [#/Vol] 0.26 10*3/uL [facility] Eosinophils/100 WBC (Bld) 4.0 % 0.0 - 6.0 % [facility] Erythrocyte distribution width (RBC) [Ratio] 14.1 % 11.5 - 14.5 % [facility] Hematocrit (Bld) [Volume fraction] 40.2 % 36.0 - 46.0 % [facility] Hemoglobin (Bld) [Mass/Vol] 12.8 g/dL 12.0 - 16.0 g/dL [facility] Immature granulocytes (Bld) [#/Vol] 0.04 10*3/uL [facility] Immature granulocytes/100 WBC (Bld) 0.6 % 0.0 - 0.9 % [facility] Comment on above: Immature Granulocyte Count (IG) includes promyelocytes, myelocytes and metamyelocytes but does not include bands. Percent differential counts (%) should be interpreted in the context of the absolute cell counts (cells/UL). Interpretation and review of laboratory results Abnormal [facility] Lymphocytes (Bld) [#/Vol] 2.18 10*3/uL [facility] Lymphocytes/100 WBC (Bld) 33.5 % 13.0 - 44.0 % [facility] MCH (RBC) [Entitic mass] 29.4 pg 26.0 - 34.0 pg [facility] MCHC (RBC) [Mass/Vol] 31.8 g/dL Low 32.0 - 36.0 g/dL [facility] MCV (RBC) [Entitic vol] 92 fL 80 - 100 fL [facility] Monocytes (Bld) [#/Vol] 0.43 10*3/uL [facility] Monocytes/100 WBC (Bld) 6.6 % 2.0 - 10.0 % [facility] Neutrophils (Bld) [#/Vol] 3.54 10*3/uL [facility] Comment on above: Percent differential counts (%) should be interpreted in the context of the absolute cell counts (cells/uL). Neutrophils/100 WBC (Bld) 54.4 % 40.0 - 80.0 % [facility] Nucleated RBC/100 WBC (Bld) [Ratio] 0.0 % [facility] Platelets (Bld) [#/Vol] 261 10*3/uL [facility] RBC (Bld) [#/Vol] 4.35 10*6/uL [facility] WBC (Bld) [#/Vol] 6.5 10*3/uL [facility] Basophils (Bld) [#/Vol] 0.06 x10*3/uL Normal 0.00-0.10 [facility] Comment on above: Performed By: #### 5 7021-8 ####ANDI Cotter ([id number])[facility] ([facility])[address] [place] [address] Basophils/100 WBC (Bld) 0.9 % Normal 0.0-2.0 [facility] Comment on above: Performed By: #### 5 7021-8 ####ANDI Cotter ([id number])[facility] ([facility])[address] [place] [address] Eosinophils (Bld) [#/Vol] 0.26 x10*3/uL Normal 0.00-0.70 [facility] Comment on above: Performed By: #### 5 7021-8 ####ANDI Cotter ([id number])[facility] ([facility])[address] [place] [address] Eosinophils/100 WBC (Bld) 4.0 % Normal 0.0-6.0 [facility] Comment on above: Performed By: #### 5 7021-8 ####ANDI Cotter ([id number])[facility] ([facility])[address] [place] [address] Erythrocyte distribution width (RBC) [Ratio] 14.1 % Normal 11.5-14.5 [facility] Comment on above: Performed By: #### 5 7021-8 ####ANDI Cotter ([id number])[facility] ([facility])[address] [place] [address] Hematocrit (Bld) [Volume fraction] 40.2 % Normal 36.0-46.0 [facility] Comment on above: Performed By: #### 5 7021-8 ####ANDI Cotter ([id number])[facility] ([facility])[address] [place] [address] Hemoglobin (Bld) [Mass/Vol] 12.8 g/dL Normal 12.0-16.0 [facility] Comment on above: Performed By: #### 5 7021-8 ####ANDI Cotter ([id number])[facility] ([facility])[address] [place] [address] Immature granulocytes (Bld) [#/Vol] 0.04 x10*3/uL Normal 0.00-0.70 [facility] Comment on above: Performed By: #### 5 7021-8 ####ANDI Cotter ([id number])[facility] ([facility])[address] [place] [address] Immature granulocytes/100 WBC (Bld) 0.6 % Normal 0.0-0.9 [facility] Comment on above: Result Comment: Debbie ture Granulocyte Count (IG) includes promyelocytes, myelocytes and metamyelocytes but does not include bands. Percent differential counts (%) should be interpreted in the context of the absolute cell counts (cells/UL). Performed By: #### 5 7021-8 ####ANDI Cotter ([id number])[facility] ([facility])[address] [place] [address] Lymphocytes (Bld) [#/Vol] 2.18 x10*3/uL Normal 1.20-4.80 [facility] Comment on above: Performed By: #### 5 7021-8 ####ANDI Cotter ([id number])[facility] ([facility])[address] [place] [address] Lymphocytes/100 WBC (Bld) 33.5 % Normal 13.0-44.0 [facility] Comment on above: Performed By: #### 5 7021-8 ####ANDI Cotter ([id number])[facility] ([facility])[address] [place] [address] MCH (RBC) [Entitic mass] 29.4 pg Normal 26.0-34.0 [facility] Comment on above: Performed By: #### 5 7021-8 ####ANDI Cotter ([id number])[facility] ([facility])[address] [place] [address] MCHC (RBC) [Mass/Vol] 31.8 g/dL Low 32.0-36.0 [facility] Comment on above: Performed By: #### 5 7021-8 ####ANDI Cotter ([id number])[facility] ([facility])[address] [place] [address] MCV (RBC) [Entitic vol] 92 fL Normal 80-100 [facility] Comment on above: Performed By: #### 5 7021-8 ####ANDI Cotter ([id number])[facility] ([facility])[address] [place] [address] Monocytes (Bld) [#/Vol] 0.43 x10*3/uL Normal 0.10-1.00 [facility] Comment on above: Performed By: #### 5 7021-8 ####ANDI Cotter ([id number])[facility] ([facility])[address] [place] [address] Monocytes/100 WBC (Bld) 6.6 % Normal 2.0-10.0 [facility] Comment on above: Performed By: #### 5 7021-8 ####ANDI Cotter ([id number])[facility] ([facility])[address] [place] [address] Neutrophils (Bld) [#/Vol] 3.54 x10*3/uL Normal 1.20-7.70 [facility] Comment on above: Result Comment: Perc ent differential counts (%) should be interpreted in the context of the absolute cell counts (cells/uL). Performed By: #### 5 7021-8 ####ANDI Cotter ([id number])[facility] ([facility])[address] [place] [address] Neutrophils/100 WBC (Bld) 54.4 % Normal 40.0-80.0 [facility] Comment on above: Performed By: #### 5 7021-8 ####ANDI Cotter ([id number])[facility] ([facility])[address] [place] [address] Nucleated RBC/100 WBC (Bld) [Ratio] 0.0 /100 WBCs Normal 0.0-0.0 [facility] Comment on above: Performed By: #### 5 7021-8 ####ANDI Cotter ([id number])[facility] ([facility])[address] [place] [address] Platelets (Bld) [#/Vol] 261 x10*3/uL Normal 150-450 [facility] Comment on above: Performed By: #### 5 7021-8 ####ANDI Cotter ([id number])[facility] ([facility])[address] [place] [address] RBC (Bld) [#/Vol] 4.35 x10*6/uL Normal 4.00-5.20 [facility] Comment on above: Performed By: #### 5 7021-8 ####ANDI CHAUDHARY L ([id number])[facility] ([facility])[address] [place] [address] WBC (Bld) [#/Vol] 6.5 x10*3/uL Normal 4.4-11.3 [facility] Comment on above: Performed By: #### 5 7021-8 ####ANDI RAJPUTMOTZER L ([id number])[facility] ([facility])[address] [place] [address] CT ABDOMEN PELVIS W IV CONTR Reny 12-06-2023 CT ABDOMEN PELVIS W IV CONTRAST Normal [facility] CT Abdomen and Pelvis W cont rast Prashant 12-06-2023 1. Status post cyst gastrostomy with near interval resolution of the previously noted pseudocyst. 2. Nonocclusive portal vein thrombus. 3. Stable appearance of the liver including steatosis and the apparent enhancing subcentimeter area at the approximate junction of hepatic segments VIII/Erik. I personally reviewed the images/study and I agree with the findings as stated by Dr. Rommel Malagon. This study was interpreted at [facility], [place], [place]. MACRO: Critical Finding: See findings. Notification was initiated on 12/06/2023 at 9:31 am by Rommel Malagon. (-OCF-) Instructions: Signed by: Letha Pennington 12/06/2023 12:19 PM Dictation workstation: [id number] Interpreted By: Letha Pennington and Ohs Zachary STUDY: CT ABDOMEN PELVIS W IV CONTRAST; 12/06/2023 8:39 am INDICATION: Signs/Symptoms:assessme nt of pancreatic pseudocyst s/p cystgastrostomy 11/14. COMPARISON: CT abdomen/pelvis 11/10/2023. ACCESSION NUMBER(S): [id number] ORDERING CLINICIAN: JOHAN BURTON TECHNIQUE: CT of the abdomen and pelvis was performed. Standard contiguous axial images were obtained at 3 mm slice thickness through the abdomen and pelvis in 2 mm slice thickness through the lower chest. Coronal and sagittal reconstructions at 3 mm slice thickness were performed. 80 ml of contrast Omnipaque 350 were administered intravenously without immediate complication. FINDINGS: LOWER CHEST: Partially visualized central venous catheter with distal tip within the right atrium. The visualized lung base is unremarkable. The heart is normal in size without pericardial effusion. No pleural effusion is present. Visualized distal esophagus appears normal. ABDOMEN: LIVER: Similar appearance of the liver when compared to prior exam. The liver is enlarged and measures 24.8 cm in craniocaudal dimension with severe steatosis. Similar fatty infiltration along the falciform ligament. BILE DUCTS: No intrahepatic duct dilation. The CBD is mildly dilated to 0.9 cm, likely physiologic given previous cholecystectomy. GALLBLADDER: The gallbladder is surgically absent. PANCREAS: Resolution of the previously noted pancreatic pseudocyst status post cyst gastrostomy. Redemonstration diffuse atrophy and fatty infiltration of the pancreas. Minimal peripancreatic fat stranding. Similar mild ductal dilation of the distal pancreatic duct again measuring up to 5 mm (series 201, image 53). SPLEEN: The spleen is normal in size without focal lesions. ADRENAL GLANDS: Adrenal glands appear normal. KIDNEYS AND URETERS: The kidneys are normal in size and enhance symmetrically. No hydroureteronephrosis or nephroureterolithiasis is identified. PELVIS: BLADDER: The urinary bladder appears normal without abnormal wall thickening. REPRODUCTIVE ORGANS: The uterus is surgically absent. BOWEL: Status post cyst gastrostomy. Otherwise, The stomach is unremarkable. The small and large bowel are normal in caliber and demonstrate no wall thickening. The appendix is surgically absent. VESSELS: Nonocclusive portal vein thrombus (series 201, image 54). There is no aneurysmal dilatation of the abdominal aorta. Similar appearance of IVC filter. Otherwise, the IVC appears normal. PERITONEUM/RETROPERITON EUM/LYMPH NODES: No ascites or free air, no fluid collection. No abdominopelvic lymphadenopathy is present. BONES AND ABDOMINAL WALL: No suspicious osseous lesions are identified. Small fat containing umbilical hernia. Otherwise, the abdominal wall soft tissues appear normal. [facility] Letha Pennington MD - 12/06/2023 Interpreted By: Letha Pennington and Ohs Zachary STUDY: CT ABDOMEN PELVIS W IV CONTRAST; 12/06/2023 8:39 am INDICATION: Signs/Symptoms:assessme nt of pancreatic pseudocyst s/p cystgastrostomy 11/14. COMPARISON: CT abdomen/pelvis 11/10/2023. ACCESSION NUMBER(S): [id number] ORDERING CLINICIAN: JOHAN BURTON TECHNIQUE: CT of the abdomen and pelvis was performed. Standard contiguous axial images were obtained at 3 mm slice thickness through the abdomen and pelvis in 2 mm slice thickness through the lower chest. Coronal and sagittal reconstructions at 3 mm slice thickness were performed. 80 ml of contrast Omnipaque 350 were administered intravenously without immediate complication. FINDINGS: LOWER CHEST: Partially visualized central venous catheter with distal tip within the right atrium. The visualized lung base is unremarkable. The heart is normal in size without pericardial effusion. No pleural effusion is present. Visualized distal esophagus appears normal. ABDOMEN: LIVER: Similar appearance of the liver when compared to prior exam. The liver is enlarged and measures 24.8 cm in craniocaudal dimension with severe steatosis. Similar fatty infiltration along the falciform ligament. BILE DUCTS: No intrahepatic duct dilation. The CBD is mildly dilated to 0.9 cm, likely physiologic given previous cholecystectomy. GALLBLADDER: The gallbladder is surgically absent. PANCREAS: Resolution of the previously noted pancreatic pseudocyst status post cyst gastrostomy. Redemonstration diffuse atrophy and fatty infiltration of the pancreas. Minimal peripancreatic fat stranding. Similar mild ductal dilation of the distal pancreatic duct again measuring up to 5 mm (series 201, image 53). SPLEEN: The spleen is normal in size without focal lesions. ADRENAL GLANDS: Adrenal glands appear normal. KIDNEYS AND URETERS: The kidneys are normal in size and enhance symmetrically. No hydroureteronephrosis or nephroureterolithiasis is identified. PELVIS: BLADDER: The urinary bladder appears normal without abnormal wall thickening. REPRODUCTIVE ORGANS: The uterus is surgically absent. BOWEL: Status post cyst gastrostomy. Otherwise, The stomach is unremarkable. The small and large bowel are normal in caliber and demonstrate no wall thickening. The appendix is surgically absent. VESSELS: Nonocclusive portal vein thrombus (series 201, image 54). There is no aneurysmal dilatation of the abdominal aorta. Similar appearance of IVC filter. Otherwise, the IVC appears normal. PERITONEUM/RETROPERITON EUM/LYMPH NODES: No ascites or free air, no fluid collection. No abdominopelvic lymphadenopathy is present. BONES AND ABDOMINAL WALL: No suspicious osseous lesions are identified. Small fat containing umbilical hernia. Otherwise, the abdominal wall soft tissues appear normal. IMPRESSION: 1. Status post cyst gastrostomy with near interval resolution of the previously noted pseudocyst. 2. Nonocclusive portal vein thrombus. 3. Stable appearance of the liver including steatosis and the apparent enhancing subcentimeter area at the approximate junction of hepatic segments VIII/Erik. I personally reviewed the images/study and I agree with the findings as stated by Dr. Rommel Malagon. This study was interpreted at [place], [place]. MACRO: Critical Finding: See findings. Notification was initiated on 12/06/2023 at 9:31 am by Rommel Malagon. (-OCF-) Instructions: Signed by: Letha Pennington 12/06/2023 12:19 PM Dictation workstation: [id number] [facility] Work Phone: Radiology Study observation (narrative) [facility] Work Phone: CT Abdomen and Pelvis W cont rast IVOrdered By: Letha Pennington on 12-06-2023 [facility] Work Phone: ECG 12-LEADon 12-06-2023 ECG 12-LEAD Ventricular Rate 111 Atrial Rate 111 P-R Interval 138 QRS Duration 84 Q-T Interval 350 QTC Calculation(Bazett) 476 P [place] 41 R [place] 44 T [place] 40 QRS Count 18 Q Onset 221 P Onset 152 P Offset 207 T Offset 396 QTC Fredericia 429 Diagnosis Sinus tachycardia Otherwise normal ECG When compared with ECG of 10-NOV-2023 13:41, Minimal criteria for Anterior infarct are no longer Present Confirmed by Evan Judge ([id number]) on 12/07/2023 4:49:43 PM Normal [facility] Glucose Test strip manual (B ld) [Mass/Vol]on 12-06-2023 Glucose [Mass/Vol] 138 mg/dL High 74 - 99 mg/dL [facility] Interpretation and review of laboratory results Abnormal [facility] Glucose [Mass/Vol] 138 mg/dL High 74-99 [facility] Comment on above: Performed By: #### 2 341-6 ####ANDI Cotter ([id number])[facility] ([facility])[address] [place] [address] Glucose [Mass/Vol] 172 mg/dL High 74 - 99 mg/dL [facility] Interpretation and review of laboratory results Abnormal [facility] Glucose [Mass/Vol] 172 mg/dL High 74-99 [facility] Comment on above: Performed By: #### 2 341-6 ####ANDI Cotter ([id number])[facility] ([facility])[address] [place] [address] Glucose [Mass/Vol] 166 mg/dL High 74 - 99 mg/dL [facility] Interpretation and review of laboratory results Abnormal [facility] Glucose [Mass/Vol] 166 mg/dL High 74-99 [facility] Comment on above: Performed By: #### 2 341-6 ####ANDI Cotter ([id number])[facility] ([facility])[address] [place] [address] Heparin Assay, UFHon 024 Heparin unfractionated Chromogenic method Qn (PPP) 0.2 See Comment Below for Therapeutic Ranges IU/mL [facility] Heparin unfractionated Chrom ogenic method Qn (PPP)on 12-06-2023 Interpretation and review of laboratory results Normal [facility] The therapeutic reference range for UFH may be either 0.3-0.6 IU/mL or 0.3-0.7 IU/mL based on the clinical setting for anticoagulant therapy and the associated nomogram used. For Heparin dosing guidelines based on clinical scenario and Heparin Assay results, please refer to local Pharmacy and the [facility] Guidelines for Anticoagulation Therapy available on the [facility] intranet at: [email or web address] [email or web address] [facility] Heparin.unfractionatedon Heparin unfractionated Chromogenic method Qn (PPP) 0.2 IU/mL Normal See Comment Below for Therapeutic Ranges [facility] Comment on above: Order Comment: Obtai n 4 hours after initiation of heparin infusion. Nursing to release order.The therapeutic reference range for UFH may be either 0.3-0.6 IU/mL or 0.3-0.7 IU/mL based on the clinical setting for anticoagulant therapy and the associated nomogram used. For Heparin dosing guidelines based on clinical scenario and Heparin Assay results, please refer to local Pharmacy and the [facility] Guidelines for Anticoagulation Therapy available on the [facility] intranet at: [email or web address]_for_[email or web address].[email or web address] Performed By: #### 3 274-8 ####ANDI Cotter ([id number])[facility] ([facility])[address] [place] [address] Heparin unfractionated Chromogenic method Qn (PPP) 0.2 IU/mL Normal See Comment Below for Therapeutic Ranges [facility] Comment on above: Order Comment: If bl eeding from any site at anytime. Nursing to release order.The therapeutic reference range for UFH may be either 0.3-0.6 IU/mL or 0.3-0.7 IU/mL based on the clinical setting for anticoagulant therapy and the associated nomogram used. For Heparin dosing guidelines based on clinical scenario and Heparin Assay results, please refer to local Pharmacy and the [facility] Guidelines for Anticoagulation Therapy available on the [facility] intranet at: [email or web address] Performed By: #### 3 274-8 ####ANDI Cotter ([id number])[facility] ([facility])[address] [place] [address] Magnesiumon 12-06-2023 Magnesium [Mass/Vol] 2.16 mg/dL 1.60 - 2.40 mg/dL [facility] Magnesium [Mass/Vol] 2.16 mg/dL Normal 1.60-2.40 [facility] Comment on above: Performed By: #### 1 9123-9 ####ANDI Cotter ([id number])[facility] ([facility])[id number] [place] [address] Magnesium [Mass/Vol]on 12-05 Interpretation and review of laboratory results Normal [facility] No Panel Informationon 12-05 [facility] PT and aPTT panel Coag (PPP) on 12-06-2023 aPTT Coag (PPP) [Time] 37 s [facility] INR Coag (PPP) [Relative time] 1.0 {INR} 0.9 - 1.1 [facility] Interpretation and review of laboratory results Normal [facility] PT Coag (PPP) [Time] 11.6 s [facility] The APTT is no longe r used for monitoring Unfractionated Heparin Therapy. For monitoring Heparin Therapy, use the Heparin Assay. [facility] aPTT Coag (PPP) [Time] 37 s Normal 27-38 [facility] Comment on above: Order Comment: The A PTT is no longer used for monitoring Unfractionated Heparin Therapy. For monitoring Heparin Therapy, use the Heparin Assay. Performed By: #### 3 4529-8 ####ANDI Cotter ([id number])[facility] ([facility])[address] [place] [address] INR Coag (PPP) [Relative time] 1.0 Normal 0.9-1.1 [facility] Comment on above: Order Comment: The A PTT is no longer used for monitoring Unfractionated Heparin Therapy. For monitoring Heparin Therapy, use the Heparin Assay. Performed By: #### 3 4529-8 ####ANDI Cotter ([id number])[facility] ([facility])[address] [place] [address] PT Coag (PPP) [Time] 11.6 s Normal 9.8-12.8 [facility] Comment on above: Order Comment: The A PTT is no longer used for monitoring Unfractionated Heparin Therapy. For monitoring Heparin Therapy, use the Heparin Assay. Performed By: #### 3 4529-8 ####ADNI Cotter ([id number])[facility] ([facility])[address] [place] [address] Blood type and Indirect anti body screen panel (Bld)on 12-05-2023 ABO group Nom (Bld) A [facility] Blood group antibody screen Ql Negative [facility] D Ag Ql (Bld) Negative [facility] Review your Rh Negat rowena female patient's potential need for Rh Immune Globulin (RhIg)administration. [facility] ABO group Nom (Bld) A Normal [facility] Comment on above: Order Comment: Revie w your Rh Negative female patient's potential need for Rh Immune Globulin (RhIg)administration. Performed By: #### 3 4532-2 ####ANDI Cotter ([id number])[facility] ([facility])[address] [place] [address] Blood group antibody screen Ql Negative [facility] Comment on above: Order Comment: Revie w your Rh Negative female patient's potential need for Rh Immune Globulin (RhIg)administration. Performed By: #### 3 4532-2 ####ANDI Cotter ([id number])[facility] ([facility])[address] [place] [address] D Ag Ql (Bld) Negative [facility] Comment on above: Order Comment: Revie w your Rh Negative female patient's potential need for Rh Immune Globulin (RhIg)administration. Performed By: #### 3 4532-2 ####ANDI Cotter ([id number])[facility] ([facility])[address] [place] [address] CBC panel Auto (Bld)on 12-04 Erythrocyte distribution width (RBC) [Ratio] 14.3 % 11.5 - 14.5 % [facility] Hematocrit (Bld) [Volume fraction] 38.3 % 36.0 - 46.0 % [facility] Hemoglobin (Bld) [Mass/Vol] 12.1 g/dL 12.0 - 16.0 g/dL [facility] Interpretation and review of laboratory results Abnormal [facility] MCH (RBC) [Entitic mass] 29.1 pg 26.0 - 34.0 pg [facility] MCHC (RBC) [Mass/Vol] 31.6 g/dL Low 32.0 - 36.0 g/dL [facility] MCV (RBC) [Entitic vol] 92 fL 80 - 100 fL [facility] Nucleated RBC/100 WBC (Bld) [Ratio] 0.0 % [facility] Platelets (Bld) [#/Vol] 268 10*3/uL [facility] RBC (Bld) [#/Vol] 4.16 10*6/uL [facility] WBC (Bld) [#/Vol] 8.0 10*3/uL [facility] Erythrocyte distribution width (RBC) [Ratio] 14.3 % Normal 11.5-14.5 [facility] Comment on above: Performed By: #### 5 8410-2 ####ANDI Cotter ([id number])[facility] ([facility])[address] [place] [address] Hematocrit (Bld) [Volume fraction] 38.3 % Normal 36.0-46.0 [facility] Comment on above: Performed By: #### 5 8410-2 ####ANDI Cotter ([id number])[facility] ([facility])[address] [place] [address] Hemoglobin (Bld) [Mass/Vol] 12.1 g/dL Normal 12.0-16.0 [facility] Comment on above: Performed By: #### 5 8410-2 ####ANDI Cotter ([id number])[facility] ([facility])[address] [place] [address] MCH (RBC) [Entitic mass] 29.1 pg Normal 26.0-34.0 [facility] Comment on above: Performed By: #### 5 8410-2 ####ANDI Cotter ([id number])[facility] ([facility])[address] [place] [address] MCHC (RBC) [Mass/Vol] 31.6 g/dL Low 32.0-36.0 [facility] Comment on above: Performed By: #### 5 8410-2 ####ANDI Cotter ([id number])[facility] ([facility])[address] [place] [address] MCV (RBC) [Entitic vol] 92 fL Normal 80-100 [facility] Comment on above: Performed By: #### 5 8410-2 ####ANDI Cotter ([id number])[facility] ([facility])[address] [place] [address] Nucleated RBC/100 WBC (Bld) [Ratio] 0.0 /100 WBCs Normal 0.0-0.0 [facility] Comment on above: Performed By: #### 5 8410-2 ####ANDI Cotter ([id number])[facility] ([facility])[address] [place] [address] Platelets (Bld) [#/Vol] 268 x10*3/uL Normal 150-450 [facility] Comment on above: Performed By: #### 5 8410-2 ####ANDI Cotter ([id number])[facility] ([facility])[address] [place] [address] RBC (Bld) [#/Vol] 4.16 x10*6/uL Normal 4.00-5.20 [facility] Comment on above: Performed By: #### 5 8410-2 ####ANDI Cotter ([id number])[facility] ([facility])[address] [place] [address] WBC (Bld) [#/Vol] 8.0 x10*3/uL Normal 4.4-11.3 [facility] Comment on above: Performed By: #### 5 8410-2 ####ANDI Cotter ([id number])[facility] ([facility])[address] [place] [address] Comprehensive metabolic 2000 panelon 12-05-2023 Albumin BCP dye [Mass/Vol] 4.0 g/dL 3.4 - 5.0 g/dL [facility] ALP [Catalytic activity/Vol] 93 U/L 33 - 110 U/L [facility] ALT With P-5'-P [Catalytic activity/Vol] 61 U/L High 7 - 45 U/L [facility] Comment on above: Patients treated wit h Sulfasalazine may generate falsely decreased results for ALT. Anion gap [Moles/Vol] 16 mmol/L 10 - 2 0 mmol/L [facility] AST With P-5'-P [Catalytic activity/Vol] 24 U/L 9 - 39 U/L [facility] Bilirubin [Mass/Vol] 0.3 mg/dL 0.0 - 1 .2 mg/dL [facility] Calcium [Mass/Vol] 9.0 mg/dL 8.6 - 10. 6 mg/dL [facility] Chloride [Moles/Vol] 101 mmol/L 98 - 10 7 mmol/L [facility] CO2 [Moles/Vol] 24 mmol/L 21 - 32 mmol/L [facility] Creatinine [Mass/Vol] 0.63 mg/dL 0.50 - 1.05 mg/dL [facility] eGFR - PINF [facility] Comment on above: Calculations of estuardo mated GFR are performed using the 2020 CKD-EPI Study Refit equation without the race variable for the IDMS-Traceable creatinine methods. https://jasn.asnjournals.org/content//ASN.160761 5368 Glucose [Mass/Vol] 250 mg/dL High 74 - 99 mg/dL [facility] Interpretation and review of laboratory results Abnormal [facility] Potassium [Moles/Vol] 4.0 mmol/L 3.5 - 5.3 mmol/L [facility] Protein [Mass/Vol] 7.0 g/dL 6.4 - 8.2 g/dL [facility] Sodium [Moles/Vol] 137 mmol/L 136 - 145 mmol/L [facility] Urea nitrogen [Mass/Vol] 17 mg/dL 6 - 23 mg/dL [facility] Albumin BCP dye [Mass/Vol] 4.0 g/dL Normal 3.4-5.0 [facility] Comment on above: Performed By: #### 2 4323-8 ####ANDI Cotter ([id number])[facility] ([facility])[address] [place] [address] ALP [Catalytic activity/Vol] 93 U/L Normal 33-110 [facility] Comment on above: Performed By: #### 2 4323-8 ####ANDI Cotter ([id number])[facility] ([facility])[address] [place] [address] ALT With P-5'-P [Catalytic activity/Vol] 61 U/L High 7-45 [facility] Comment on above: Result Comment: Eevlyn ents treated with Sulfasalazine may generate falsely decreased results for ALT. Performed By: #### 2 4323-8 ####ANDI Cotter ([id number])[facility] ([facility])[address] [place] [address] Anion gap [Moles/Vol] 16 mmol/L Normal 10-20 [facility] Comment on above: Performed By: #### 2 4323-8 ####ANDI Cotter ([id number])[facility] ([facility])[address] [place] [address] AST With P-5'-P [Catalytic activity/Vol] 24 U/L Normal 9-39 [facility] Comment on above: Performed By: #### 2 4323-8 ####ANDI Cotter ([id number])[facility] ([facility])[address] [place] [address] Bilirubin [Mass/Vol] 0.3 mg/dL Normal 0.0-1.2 [facility] Comment on above: Performed By: #### 2 4323-8 ####ANDI Cotter ([id number])[facility] ([facility])[address] [place] [address] Calcium [Mass/Vol] 9.0 mg/dL Normal 8.6-10.6 [facility] Comment on above: Performed By: #### 2 4323-8 ####ANDI Cotter ([id number])[facility] ([facility])[address] [place] [address] Chloride [Moles/Vol] 101 mmol/L Normal 98-107 [facility] Comment on above: Performed By: #### 2 4323-8 ####ANDI Cotter ([id number])[facility] ([facility])[address] [place] [address] CO2 [Moles/Vol] 24 mmol/L Normal 21-32 [facility] Comment on above: Performed By: #### 2 4323-8 ####ANDI Cotter ([id number])[facility] ([facility])[address] [place] [address] Creatinine [Mass/Vol] 0.63 mg/dL Normal 0.50-1.05 [facility] Comment on above: Performed By: #### 2 4323-8 ####ANDI Cotter ([id number])[facility] ([facility])[address] [place] [address] GFR/1.73 sq M.predicted MDRD (S/P/Bld) [Vol rate/Area] mL/min/{1.73_m2} Normal >60 [facility] Comment on above: Result Comment: Calc ulations of estimated GFR are performed using the 2020 CKD-EPI Study Refit equation without the race variable for the IDMS-Traceable creatinine methods.https://jasn.asnjournals.org/content// N.9502597719 Performed By: #### 2 4323-8 ####ANDI Cotter ([id number])[facility] ([facility])[address] [place] [address] Glucose [Mass/Vol] 250 mg/dL High 74-99 [facility] Comment on above: Performed By: #### 2 4323-8 ####ANDI Cotter ([id number])[facility] ([facility])[address] [place] [address] Potassium [Moles/Vol] 4.0 mmol/L Normal 3.5-5.3 [facility] Comment on above: Performed By: #### 2 4323-8 ####ANDI Cotter ([id number])[facility] ([facility])[address] [place] [address] Protein [Mass/Vol] 7.0 g/dL Normal 6.4-8.2 [facility] Comment on above: Performed By: #### 2 4323-8 ####ANDI Cotter ([id number])[facility] ([facility])[address] [place] [address] Sodium [Moles/Vol] 137 mmol/L Normal 136-145 [facility] Comment on above: Performed By: #### 2 4323-8 ####ANDI Cotter ([id number])[facility] ([facility])[address] [place] [address] Urea nitrogen [Mass/Vol] 17 mg/dL Normal 6-23 [facility] Comment on above: Performed By: #### 2 4323-8 ####ANDI Cotter ([id number])[facility] ([facility])[address] [place] [address] Glucose Test strip manual (B ld) [Mass/Vol]on 12-05-2023 Glucose [Mass/Vol] 204 mg/dL High 74 - 99 mg/dL [facility] Interpretation and review of laboratory results Abnormal [facility] Glucose [Mass/Vol] 204 mg/dL High 74-99 [facility] Comment on above: Performed By: #### 2 341-6 ####ANDI Cotter ([id number])[facility] ([facility])[address] [place] [address] Glucose [Mass/Vol] 216 mg/dL High 74 - 99 mg/dL [facility] Interpretation and review of laboratory results Abnormal [facility] Glucose [Mass/Vol] 216 mg/dL High 74-99 [facility] Comment on above: Performed By: #### 2 341-6 ####ANDI Cotter ([id number])[facility] ([facility])[address] [place] [address] PT and aPTT panel Coag (PPP) on 12-05-2023 aPTT Coag (PPP) [Time] 29 s [facility] INR Coag (PPP) [Relative time] 1.1 {INR} 0.9 - 1.1 [facility] Interpretation and review of laboratory results Normal [facility] PT Coag (PPP) [Time] 12.1 s [facility] The APTT is no longe r used for monitoring Unfractionated Heparin Therapy. For monitoring Heparin Therapy, use the Heparin Assay. [facility] aPTT Coag (PPP) [Time] 29 s Normal 27-38 [facility] Comment on above: Order Comment: The A PTT is no longer used for monitoring Unfractionated Heparin Therapy. For monitoring Heparin Therapy, use the Heparin Assay. Performed By: #### 3 4529-8 ####ANDI Cotter ([id number])[facility] ([facility])[address] [place] [address] INR Coag (PPP) [Relative time] 1.1 Normal 0.9-1.1 [facility] Comment on above: Order Comment: The A PTT is no longer used for monitoring Unfractionated Heparin Therapy. For monitoring Heparin Therapy, use the Heparin Assay. Performed By: #### 3 4529-8 ####ANDI Cotter ([id number])[facility] ([facility])[address] [place] [address] PT Coag (PPP) [Time] 12.1 s Normal 9.8-12.8 [facility] Comment on above: Order Comment: The A PTT is no longer used for monitoring Unfractionated Heparin Therapy. For monitoring Heparin Therapy, use the Heparin Assay. Performed By: #### 3 4529-8 ####ANDI Cotter ([id number])[facility] ([facility])[address] [place] [address] CBC panel Auto (Bld)on 11-15 Erythrocyte distribution width (RBC) [Ratio] 14.8 % High 11.5 - 14.5 % [facility] Hematocrit (Bld) [Volume fraction] 35.2 % Low 36.0 - 46.0 % [facility] Hemoglobin (Bld) [Mass/Vol] 10.9 g/dL Low 12.0 - 16.0 g/dL [facility] Interpretation and review of laboratory results Abnormal [facility] MCH (RBC) [Entitic mass] 29.3 pg 26.0 - 34.0 pg [facility] MCHC (RBC) [Mass/Vol] 31.0 g/dL Low 32.0 - 36.0 g/dL [facility] MCV (RBC) [Entitic vol] 95 fL 80 - 100 fL [facility] Nucleated RBC/100 WBC (Bld) [Ratio] 0.0 % [facility] Platelets (Bld) [#/Vol] 213 10*3/uL [facility] RBC (Bld) [#/Vol] 3.72 10*6/uL Low [facility] WBC (Bld) [#/Vol] 12.4 10*3/uL High [facility] Erythrocyte distribution width (RBC) [Ratio] 14.8 % High 11.5-14.5 [facility] Comment on above: Performed By: #### 5 8410-2 ####ANDI Cotter ([id number])[facility] [facility] ([facility])[address] [place] [address] Hematocrit (Bld) [Volume fraction] 35.2 % Low 36.0-46.0 [facility] Comment on above: Performed By: #### 5 8410-2 ####ANDI Cotter ([id number])[facility] ([facility])[address] [place] [address] Hemoglobin (Bld) [Mass/Vol] 10.9 g/dL Low 12.0-16.0 [facility] Comment on above: Performed By: #### 5 8410-2 ####ANDI Cotter ([id number])[facility] ([facility])[address] [place] [address] MCH (RBC) [Entitic mass] 29.3 pg Normal 26.0-34.0 [facility] Comment on above: Performed By: #### 5 8410-2 ####ANDI Cotter ([id number])[facility] ([facility])[address] [place] [address] MCHC (RBC) [Mass/Vol] 31.0 g/dL Low 32.0-36.0 [facility] Comment on above: Performed By: #### 5 8410-2 ####ANDI Cotter ([id number])[facility] ([facility])[id number] [place] [address] MCV (RBC) [Entitic vol] 95 fL Normal 80-100 [facility] Comment on above: Performed By: #### 5 8410-2 ####ANDI Cotter ([id number])[facility] ([facility])[address] [place] [address] Nucleated RBC/100 WBC (Bld) [Ratio] 0.0 /100 WBCs Normal 0.0-0.0 [facility] Comment on above: Performed By: #### 5 8410-2 ####ANDI Cotter ([id number])[facility] ([facility])[address] [place] [address] Platelets (Bld) [#/Vol] 213 x10*3/uL Normal 150-450 [facility] Comment on above: Performed By: #### 5 8410-2 ####ANDI Cotter ([id number])[facility] ([facility])[address] [place] [address] RBC (Bld) [#/Vol] 3.72 x10*6/uL Low 4.00-5.20 [facility] Comment on above: Performed By: #### 5 8410-2 ####ANDI Cotter ([id number])[facility] ([facility])[address] [place] [address] WBC (Bld) [#/Vol] 12.4 x10*3/uL High 4.4-11.3 [facility] Comment on above: Performed By: #### 5 8410-2 ####ANDI CHAUDHARY L ([id number])[facility] ([facility])[address] [place] [address] Comprehensive metabolic 2000 panelon 11-15-2023 Albumin BCP dye [Mass/Vol] 3.7 g/dL 3.4 - 5.0 g/dL [facility] ALP [Catalytic activity/Vol] 96 U/L 33 - 110 U/L [facility] ALT With P-5'-P [Catalytic activity/Vol] 71 U/L High 7 - 45 U/L [facility] Comment on above: Patients treated wit h Sulfasalazine may generate falsely decreased results for ALT. Anion gap [Moles/Vol] 17 mmol/L 10 - 2 0 mmol/L [facility] AST With P-5'-P [Catalytic activity/Vol] 33 U/L 9 - 39 U/L [facility] Bilirubin [Mass/Vol] 0.6 mg/dL 0.0 - 1 .2 mg/dL [facility] Calcium [Mass/Vol] 8.9 mg/dL 8.6 - 10. 6 mg/dL [facility] Chloride [Moles/Vol] 99 mmol/L 98 - 10 7 mmol/L [facility] CO2 [Moles/Vol] 23 mmol/L 21 - 32 mmol/L [facility] Creatinine [Mass/Vol] 0.78 mg/dL 0.50 - 1.05 mg/dL [facility] eGFR - PINF [facility] Comment on above: Calculations of estuardo mated GFR are performed using the 2020 CKD-EPI Study Refit equation without the race variable for the IDMS-Traceable creatinine methods. https://jasn.asnjournals.org/content//ASN.974817 6920 Glucose [Mass/Vol] 203 mg/dL High 74 - 99 mg/dL [facility] Interpretation and review of laboratory results Abnormal [facility] Potassium [Moles/Vol] 3.8 mmol/L 3.5 - 5.3 mmol/L [facility] Protein [Mass/Vol] 6.2 g/dL Low 6.4 - 8.2 g/dL [facility] Sodium [Moles/Vol] 135 mmol/L Low 136 - 145 mmol/L [facility] Urea nitrogen [Mass/Vol] 6 mg/dL 6 - 23 mg/dL [facility] Albumin BCP dye [Mass/Vol] 3.7 g/dL Normal 3.4-5.0 [facility] Comment on above: Performed By: #### 2 4323-8 ####ANDI Cotter ([id number])[facility] ([facility])[address] [place] [address] ALP [Catalytic activity/Vol] 96 U/L Normal 33-110 [facility] Comment on above: Performed By: #### 2 4323-8 ####ANDI Cotter ([id number])[facility] ([facility])[address] [place] [address] ALT With P-5'-P [Catalytic activity/Vol] 71 U/L High 7-45 [facility] Comment on above: Result Comment: Evelyn ents treated with Sulfasalazine may generate falsely decreased results for ALT. Performed By: #### 2 4323-8 ####ANDI Cotter ([id number])[facility] ([facility])[address] [place] [address] Anion gap [Moles/Vol] 17 mmol/L Normal 10-20 [facility] Comment on above: Performed By: #### 2 4323-8 ####ANDI Cotter ([id number])[facility] ([facility])[address] [place] [address] AST With P-5'-P [Catalytic activity/Vol] 33 U/L Normal 9-39 [facility] Comment on above: Performed By: #### 2 4323-8 ####ANDI CHAUDHARY L ([id number])[facility] ([facility])[address] [place] [address] Bilirubin [Mass/Vol] 0.6 mg/dL Normal 0.0-1.2 [facility] Comment on above: Performed By: #### 2 4323-8 ####ANDI CHAUDHARY L ([id number])[facility] ([facility])[address] [place] [address] Calcium [Mass/Vol] 8.9 mg/dL Normal 8.6-10.6 [facility] Comment on above: Performed By: #### 2 4323-8 ####ANDI CHAUDHARY L ([id number])[facility] ([facility])[address] [place] [address] Chloride [Moles/Vol] 99 mmol/L Normal 98-107 [facility] Comment on above: Performed By: #### 2 4323-8 ####ANDI CHAUDHARY L ([id number])[facility] ([facility])[address] [place] [address] CO2 [Moles/Vol] 23 mmol/L Normal 21-32 [facility] Comment on above: Performed By: #### 2 4323-8 ####ANDI CHAUDHARY L ([id number])[facility] ([facility])[address] [place] [address] Creatinine [Mass/Vol] 0.78 mg/dL Normal 0.50-1.05 [facility] Comment on above: Performed By: #### 2 4323-8 ####ANDI MADRIDTZER L ([id number])[facility] ([facility])[address] [place] [address] GFR/1.73 sq M.predicted MDRD (S/P/Bld) [Vol rate/Area] mL/min/{1.73_m2} Normal >60 [facility] Comment on above: Result Comment: Calc ulations of estimated GFR are performed using the 2020 CKD-EPI Study Refit equation without the race variable for the IDMS-Traceable creatinine methods.https://jasn.asnjournals.org/content// N.4315270802 Performed By: #### 2 4323-8 ####ANDI Cotter ([id number])[facility] ([facility])[address] [place] [address] Glucose [Mass/Vol] 203 mg/dL High 74-99 [facility] Comment on above: Performed By: #### 2 4323-8 ####ANDI Cotter ([id number])[facility] ([facility])[address] [place] [address] Potassium [Moles/Vol] 3.8 mmol/L Normal 3.5-5.3 [facility] Comment on above: Performed By: #### 2 4323-8 ####ANDI Cotter ([id number])[facility] ([facility])[address] [place] [address] Protein [Mass/Vol] 6.2 g/dL Low 6.4-8.2 [facility] Comment on above: Performed By: #### 2 4323-8 ####ANDI Cotter ([id number])[facility] ([facility])[address] [place] [address] Sodium [Moles/Vol] 135 mmol/L Low 136-145 [facility] Comment on above: Performed By: #### 2 4323-8 ####ANDI Cotter ([id number])[facility] ([facility])[address] [place] [address] Urea nitrogen [Mass/Vol] 6 mg/dL Normal 6-23 [facility] Comment on above: Performed By: #### 2 4323-8 ####ANDI Cotter ([id number])[facility] ([facility])[address] [place] [address] Glucose Test strip manual (B ld) [Mass/Vol]on 02-27-2024 Glucose [Mass/Vol] 352 mg/dL High 74 - 99 mg/dL [facility] Interpretation and review of laboratory results Abnormal [facility] Glucose [Mass/Vol] 352 mg/dL High 74-99 [facility] Comment on above: Performed By: #### 2 341-6 ####ANDI Cotter ([id number])[facility] ([facility])[address] [place] [address] Glucose [Mass/Vol] 184 mg/dL High 74 - 99 mg/dL [facility] Interpretation and review of laboratory results Abnormal [facility] Glucose [Mass/Vol] 184 mg/dL High 74-99 [facility] Comment on above: Performed By: #### 2 341-6 ####ANDI Cotter ([id number])[facility] ([facility])[address] [place] [address] Glucose [Mass/Vol] 201 mg/dL High 74 - 99 mg/dL [facility] Interpretation and review of laboratory results Abnormal [facility] Glucose [Mass/Vol] 201 mg/dL High 74-99 [facility] Comment on above: Performed By: #### 2 341-6 ####ANDI Cotter ([id number])[facility] ([facility])[id number] [place] [address] Glucose [Mass/Vol] 243 mg/dL High 74 - 99 mg/dL [facility] Interpretation and review of laboratory results Abnormal [facility] Glucose [Mass/Vol] 243 mg/dL High 74-99 [facility] Comment on above: Performed By: #### 2 341-6 ####ANDI Cotter ([id number])[facility] ([facility])[address] [place] [address] CBC panel Auto (Bld)on 11-14 Erythrocyte distribution width (RBC) [Ratio] 14.6 % High 11.5 - 14.5 % [facility] Hematocrit (Bld) [Volume fraction] 35.2 % Low 36.0 - 46.0 % [facility] Hemoglobin (Bld) [Mass/Vol] 11.4 g/dL Low 12.0 - 16.0 g/dL [facility] Interpretation and review of laboratory results Abnormal [facility] MCH (RBC) [Entitic mass] 30.2 pg 26.0 - 34.0 pg [facility] MCHC (RBC) [Mass/Vol] 32.4 g/dL 32.0 - 36.0 g/dL [facility] MCV (RBC) [Entitic vol] 93 fL 80 - 100 fL [facility] Nucleated RBC/100 WBC (Bld) [Ratio] 0.0 % [facility] Platelets (Bld) [#/Vol] 247 10*3/uL [facility] RBC (Bld) [#/Vol] 3.78 10*6/uL Low [facility] WBC (Bld) [#/Vol] 9.0 10*3/uL [facility] Erythrocyte distribution width (RBC) [Ratio] 14.6 % High 11.5-14.5 [facility] Comment on above: Performed By: #### 5 8410-2 ####ANDI Cotter ([id number])[facility] ([facility])[address] [place] [address] Hematocrit (Bld) [Volume fraction] 35.2 % Low 36.0-46.0 [facility] Comment on above: Performed By: #### 5 8410-2 ####ANDI Cotter ([id number])[facility] ([facility])[address] [place] [address] Hemoglobin (Bld) [Mass/Vol] 11.4 g/dL Low 12.0-16.0 [facility] Comment on above: Performed By: #### 5 8410-2 ####ANDI Cotter ([id number])[facility] ([facility])[address] [place] [address] MCH (RBC) [Entitic mass] 30.2 pg Normal 26.0-34.0 [facility] Comment on above: Performed By: #### 5 8410-2 ####ANDI Cotter ([id number])[facility] ([facility])[address] [place] [address] MCHC (RBC) [Mass/Vol] 32.4 g/dL Normal 32.0-36.0 [facility] Comment on above: Performed By: #### 5 8410-2 ####ANDI CHAUDHARY L ([id number])[facility] ([facility])[address] [place] [address] MCV (RBC) [Entitic vol] 93 fL Normal 80-100 [facility] Comment on above: Performed By: #### 5 8410-2 ####ANDI Cotter ([id number])[facility] ([facility])[address] [place] [address] Nucleated RBC/100 WBC (Bld) [Ratio] 0.0 /100 WBCs Normal 0.0-0.0 [facility] Comment on above: Performed By: #### 5 8410-2 ####ANDI Cotter ([id number])[facility] ([facility])[address] [place] [address] Platelets (Bld) [#/Vol] 247 x10*3/uL Normal 150-450 [facility] Comment on above: Performed By: #### 5 8410-2 ####ANDI CHAUDHARY L ([id number])[facility] ([facility])[address] [place] [address] RBC (Bld) [#/Vol] 3.78 x10*6/uL Low 4.00-5.20 [facility] Comment on above: Performed By: #### 5 8410-2 ####ANDI CHAUDHARY L ([id number])[facility] ([facility])[address] [place] [address] WBC (Bld) [#/Vol] 9.0 x10*3/uL Normal 4.4-11.3 [facility] Comment on above: Performed By: #### 5 8410-2 ####ANDI Cotter ([id number])[facility] ([facility])[address] [place] [address] Erythrocyte distribution width (RBC) [Ratio] 14.3 % 11.5 - 14.5 % [facility] Hematocrit (Bld) [Volume fraction] 34.7 % Low 36.0 - 46.0 % [facility] Hemoglobin (Bld) [Mass/Vol] 10.9 g/dL Low 12.0 - 16.0 g/dL [facility] Interpretation and review of laboratory results Abnormal [facility] MCH (RBC) [Entitic mass] 29.4 pg 26.0 - 34.0 pg [facility] MCHC (RBC) [Mass/Vol] 31.4 g/dL Low 32.0 - 36.0 g/dL [facility] MCV (RBC) [Entitic vol] 94 fL 80 - 100 fL [facility] Nucleated RBC/100 WBC (Bld) [Ratio] 0.0 % [facility] Platelets (Bld) [#/Vol] 266 10*3/uL [facility] RBC (Bld) [#/Vol] 3.71 10*6/uL Low [facility] WBC (Bld) [#/Vol] 5.8 10*3/uL [facility] Erythrocyte distribution width (RBC) [Ratio] 14.3 % Normal 11.5-14.5 [facility] Comment on above: Performed By: #### 5 8410-2 ####ANDI Cotter ([id number])[facility] ([facility])[address] [place] [address] Hematocrit (Bld) [Volume fraction] 34.7 % Low 36.0-46.0 [facility] Comment on above: Performed By: #### 5 8410-2 ####ANDI Cotter ([id number])[facility] ([facility])[address] [place] [address] Hemoglobin (Bld) [Mass/Vol] 10.9 g/dL Low 12.0-16.0 [facility] Comment on above: Performed By: #### 5 8410-2 ####ANDI Cotter ([id number])[facility] ([facility])[address] [place] [address] MCH (RBC) [Entitic mass] 29.4 pg Normal 26.0-34.0 [facility] Comment on above: Performed By: #### 5 8410-2 ####ANDI Cotter ([id number])[facility] ([facility])[address] [place] [address] MCHC (RBC) [Mass/Vol] 31.4 g/dL Low 32.0-36.0 [facility] Comment on above: Performed By: #### 5 8410-2 ####ANDI Cotter ([id number])[facility] ([facility])[address] [place] [address] MCV (RBC) [Entitic vol] 94 fL Normal 80-100 [facility] Comment on above: Performed By: #### 5 8410-2 ####ANDI Cotter ([id number])[facility] ([facility])[address] [place] [address] Nucleated RBC/100 WBC (Bld) [Ratio] 0.0 /100 WBCs Normal 0.0-0.0 [facility] Comment on above: Performed By: #### 5 8410-2 ####ANDI Cotter ([id number])[facility] ([facility])[address] [place] [address] Platelets (Bld) [#/Vol] 266 x10*3/uL Normal 150-450 [facility] Comment on above: Performed By: #### 5 8410-2 ####ANDI Cotter ([id number])[facility] ([facility])[address] [place] [address] RBC (Bld) [#/Vol] 3.71 x10*6/uL Low 4.00-5.20 [facility] Comment on above: Performed By: #### 5 8410-2 ####ANDI Cotter ([id number])[facility] ([facility])[address] [place] [address] WBC (Bld) [#/Vol] 5.8 x10*3/uL Normal 4.4-11.3 [facility] Comment on above: Performed By: #### 5 8410-2 ####ANDI Cotter ([id number])[facility] ([facility])[address] [place] [address] Comprehensive metabolic 2000 panelon 11-14-2023 Albumin BCP dye [Mass/Vol] 4.0 g/dL 3.4 - 5.0 g/dL [facility] ALP [Catalytic activity/Vol] 106 U/L 33 - 110 U/L [facility] ALT With P-5'-P [Catalytic activity/Vol] 87 U/L High 7 - 45 U/L [facility] Comment on above: Patients treated wit h Sulfasalazine may generate falsely decreased results for ALT. Anion gap [Moles/Vol] 14 mmol/L 10 - 2 0 mmol/L [facility] AST With P-5'-P [Catalytic activity/Vol] 49 U/L High 9 - 39 U/L [facility] Bilirubin [Mass/Vol] 0.5 mg/dL 0.0 - 1 .2 mg/dL [facility] Calcium [Mass/Vol] 9.2 mg/dL 8.6 - 10. 6 mg/dL [facility] Chloride [Moles/Vol] 99 mmol/L 98 - 10 7 mmol/L [facility] CO2 [Moles/Vol] 30 mmol/L 21 - 32 mmol/L [facility] Creatinine [Mass/Vol] 0.86 mg/dL 0.50 - 1.05 mg/dL [facility] GFR/1.73 sq M.predicted among non-blacks MDRD (S/P/Bld) [Vol rate/Area] 83 mL/min/{1.73_m2} - PINF [facility] Comment on above: Calculations of estuardo mated GFR are performed using the 2020 CKD-EPI Study Refit equation without the race variable for the IDMS-Traceable creatinine methods. https://jasn.asnjournals.org/content//ASN.889246 1340 Glucose [Mass/Vol] 254 mg/dL High 74 - 99 mg/dL [facility] Interpretation and review of laboratory results Abnormal [facility] Potassium [Moles/Vol] 3.8 mmol/L 3.5 - 5.3 mmol/L [facility] Protein [Mass/Vol] 6.4 g/dL 6.4 - 8.2 g/dL [facility] Sodium [Moles/Vol] 139 mmol/L 136 - 145 mmol/L [facility] Urea nitrogen [Mass/Vol] 9 mg/dL 6 - 23 mg/dL [facility] Albumin BCP dye [Mass/Vol] 4.0 g/dL Normal 3.4-5.0 [facility] Comment on above: Performed By: #### 2 4323-8 ####ANDI Cotter ([id number])[facility] ([facility])[address] [place] [address] ALP [Catalytic activity/Vol] 106 U/L Normal 33-110 [facility] Comment on above: Performed By: #### 2 0513-8 ####ANDI Cotter ([id number])[facility] ([facility])[address] [place] [address] ALT With P-5'-P [Catalytic activity/Vol] 87 U/L High 7-45 [facility] Comment on above: Result Comment: Evelyn ents treated with Sulfasalazine may generate falsely decreased results for ALT. Performed By: #### 2 4323-8 ####ANDI Cotter ([id number])[facility] ([facility])[address] [place] [address] Anion gap [Moles/Vol] 14 mmol/L Normal 10-20 [facility] Comment on above: Performed By: #### 2 4323-8 ####ANDI Cotter ([id number])[facility] ([facility])[address] [place] [address] AST With P-5'-P [Catalytic activity/Vol] 49 U/L High 9-39 [facility] Comment on above: Performed By: #### 2 4323-8 ####ANDI Cotter ([id number])[facility] ([facility])[address] [place] [address] Bilirubin [Mass/Vol] 0.5 mg/dL Normal 0.0-1.2 [facility] Comment on above: Performed By: #### 2 4323-8 ####ANDI Cotter ([id number])[facility] ([facility])[address] [place] [address] Calcium [Mass/Vol] 9.2 mg/dL Normal 8.6-10.6 [facility] Comment on above: Performed By: #### 2 4323-8 ####ANDI Cotter ([id number])[facility] ([facility])[address] [place] [address] Chloride [Moles/Vol] 99 mmol/L Normal 98-107 [facility] Comment on above: Performed By: #### 2 4323-8 ####ANDI Cotter ([id number])[facility] ([facility])[address] [place] [address] CO2 [Moles/Vol] 30 mmol/L Normal 21-32 [facility] Comment on above: Performed By: #### 2 4323-8 ####ANDI Cotter ([id number])[facility] ([facility])[address] [place] [address] Creatinine [Mass/Vol] 0.86 mg/dL Normal 0.50-1.05 [facility] Comment on above: Performed By: #### 2 4323-8 ####ANDI Cotter ([id number])[facility] ([facility])[address] [place] [address] Glomerular filtration rate/1.73 sq M.predicted 83 mL/min/1.73m*2 Normal >60 [facility] Comment on above: Result Comment: Calc ulations of estimated GFR are performed using the 2021 CKD-EPI Study Refit equation without the race variable for the IDMS-Traceable creatinine methods.https://jasn.asnjournals.org/content// N.0354054516 Performed By: #### 2 4323-8 ####ANDI Cotter ([id number])[facility] ([facility])[address] [place] [address] Glucose [Mass/Vol] 254 mg/dL High 74-99 [facility] Comment on above: Performed By: #### 2 4323-8 ####ANDI CHAUDHARY L ([id number])[facility] ([facility])[address] [place] [address] Potassium [Moles/Vol] 3.8 mmol/L Normal 3.5-5.3 [facility] Comment on above: Performed By: #### 2 4323-8 ####ANDI CHAUDHARY L ([id number])[facility] ([facility])[address] [place] [address] Protein [Mass/Vol] 6.4 g/dL Normal 6.4-8.2 [facility] Comment on above: Performed By: #### 2 4323-8 ####ANDI CHAUDHARY L ([id number])[facility] ([facility])[address] [place] [address] Sodium [Moles/Vol] 139 mmol/L Normal 136-145 [facility] Comment on above: Performed By: #### 2 4323-8 ####ANDI RAJPUTMOFIDELINA L ([id number])[facility] ([facility])[address] [place] [address] Urea nitrogen [Mass/Vol] 9 mg/dL Normal 6-23 [facility] Comment on above: Performed By: #### 2 4323-8 ####ANDI RAJPUTMOTZDAVID L ([id number])[facility] ([facility])[address] [place] [address] Albumin BCP dye [Mass/Vol] 3.8 g/dL 3.4 - 5.0 g/dL [facility] ALP [Catalytic activity/Vol] 92 U/L 33 - 110 U/L [facility] ALT With P-5'-P [Catalytic activity/Vol] 87 U/L High 7 - 45 U/L [facility] Comment on above: Patients treated wit h Sulfasalazine may generate falsely decreased results for ALT. Anion gap [Moles/Vol] 15 mmol/L 10 - 2 0 mmol/L [facility] AST With P-5'-P [Catalytic activity/Vol] 31 U/L 9 - 39 U/L [facility] Bilirubin [Mass/Vol] 0.5 mg/dL 0.0 - 1 .2 mg/dL [facility] Calcium [Mass/Vol] 9.0 mg/dL 8.6 - 10. 6 mg/dL [facility] Chloride [Moles/Vol] 98 mmol/L 98 - 10 7 mmol/L [facility] CO2 [Moles/Vol] 27 mmol/L 21 - 32 mmol/L [facility] Creatinine [Mass/Vol] 0.79 mg/dL 0.50 - 1.05 mg/dL [facility] eGFR - PINF [facility] Comment on above: Calculations of estuardo mated GFR are performed using the 2020 CKD-EPI Study Refit equation without the race variable for the IDMS-Traceable creatinine methods. https://jasn.asnjournals.org/content//ASN.218074 8144 Glucose [Mass/Vol] 190 mg/dL High 74 - 99 mg/dL [facility] Interpretation and review of laboratory results Abnormal [facility] Potassium [Moles/Vol] 3.4 mmol/L Low 3.5 - 5.3 mmol/L [facility] Protein [Mass/Vol] 6.1 g/dL Low 6.4 - 8.2 g/dL [facility] Sodium [Moles/Vol] 137 mmol/L 136 - 145 mmol/L [facility] Urea nitrogen [Mass/Vol] 9 mg/dL 6 - 23 mg/dL [facility] Albumin BCP dye [Mass/Vol] 3.8 g/dL Normal 3.4-5.0 [facility] Comment on above: Performed By: #### 2 4323-8 ####ANDI Cotter ([id number])[facility] ([facility])[address] [place] [address] ALP [Catalytic activity/Vol] 92 U/L Normal 33-110 [facility] Comment on above: Performed By: #### 2 4323-8 ####ANDI Cotter ([id number])[facility] ([facility])[address] [place] [address] ALT With P-5'-P [Catalytic activity/Vol] 87 U/L High 7-45 [facility] Comment on above: Result Comment: Evelyn ents treated with Sulfasalazine may generate falsely decreased results for ALT. Performed By: #### 2 4323-8 ####ANDI Cotter ([id number])[facility] ([facility])[address] [place] [address] Anion gap [Moles/Vol] 15 mmol/L Normal 10-20 [facility] Comment on above: Performed By: #### 2 4323-8 ####ANDI Cotter ([id number])[facility] ([facility])[address] [place] [address] AST With P-5'-P [Catalytic activity/Vol] 31 U/L Normal 9-39 [facility] Comment on above: Performed By: #### 2 4323-8 ####ANDI Cotter ([id number])[facility] ([facility])[address] [place] [address] Bilirubin [Mass/Vol] 0.5 mg/dL Normal 0.0-1.2 [facility] Comment on above: Performed By: #### 2 4323-8 ####ANDI Cotter ([id number])[facility] ([facility])[address] [place] [address] Calcium [Mass/Vol] 9.0 mg/dL Normal 8.6-10.6 [facility] Comment on above: Performed By: #### 2 4323-8 ####ANDI Cotter ([id number])[facility] ([facility])[address] [place] [address] Chloride [Moles/Vol] 98 mmol/L Normal 98-107 [facility] Comment on above: Performed By: #### 2 4323-8 ####ANDI CHAUDHARY L ([id number])[facility] ([facility])[address] [place] [address] CO2 [Moles/Vol] 27 mmol/L Normal 21-32 [facility] Comment on above: Performed By: #### 2 4323-8 ####ANDI CHAUDHARY L ([id number])[facility] ([facility])[address] [place] [address] Creatinine [Mass/Vol] 0.79 mg/dL Normal 0.50-1.05 [facility] Comment on above: Performed By: #### 2 4323-8 ####ANDI CHAUDHARY L ([id number])[facility] ([facility])[address] [place] [address] GFR/1.73 sq M.predicted MDRD (S/P/Bld) [Vol rate/Area] mL/min/{1.73_m2} Normal >60 [facility] Comment on above: Result Comment: Calc ulations of estimated GFR are performed using the 2020 CKD-EPI Study Refit equation without the race variable for the IDMS-Traceable creatinine methods.https://jasn.asnjournals.org/content/early// N.8572934698 Performed By: #### 2 4323-8 ####ANDI Cotter ([id number])[facility] ([facility])[address] [place] [address] Glucose [Mass/Vol] 190 mg/dL High 74-99 [facility] Comment on above: Performed By: #### 2 4323-8 ####ANDI CHAUDHARY L ([id number])[facility] ([facility])[address] [place] [address] Potassium [Moles/Vol] 3.4 mmol/L Low 3.5-5.3 [facility] Comment on above: Performed By: #### 2 4323-8 ####ANDI RAJPUTMOTZER L ([id number])[facility] ([facility])[address] [place] [address] Protein [Mass/Vol] 6.1 g/dL Low 6.4-8.2 [facility] Comment on above: Performed By: #### 2 4323-8 ####ANDI SCHMOTZER L ([id number])[facility] ([facility])[address] [place] [address] Sodium [Moles/Vol] 137 mmol/L Normal 136-145 [facility] Comment on above: Performed By: #### 2 4323-8 ####ANDI SCHMOTZER L ([id number])[facility] ([facility])[address] [place] [address] Urea nitrogen [Mass/Vol] 9 mg/dL Normal 6-23 [facility] Comment on above: Performed By: #### 2 4323-8 ####ANDI SCHMOTZER L ([id number])[facility] ([facility])[address] [place] [address] ENDOSCOPIC ULTRASOUND (UPPER )on 11-14-2023 ENDOSCOPIC ULTRASOUND (UPPER) Table formatting from the original result was not included. Normal [facility] Endoscopic Ultrasound (Upper )on 11-14-2023 Table formatting fro m the original result was not included. Impression The esophagus appeared normal. Edematous and erythematous mucosa in the stomach. No significant extrinsic compression noted. The duodenal bulb, 1st part of the duodenum, 2nd part of the duodenum and 3rd part of the duodenum appeared normal. No stenosis visualized. A large round cyst measuring approximately 100 mm x 80 mm with debris present, was found in the area of the body of the pancreas. Therapeutic drainage performed from the gastric body using hot lumen apposing metal stent measuring 20 mm x 10 mm. Post-drainage, one 7 Fr x 4 cm double pigtail plastic stent was placed through the lumen of the prior stent. Findings The esophagus appeared normal. The exam of the esophagus is normal. There was no esophagitis, stenosis, varices or ulcers. Regular Z-line 38 cm from the incisors Edematous and erythematous mucosa in the stomach The exam of the stomach was otherwise unremarkable. There was no significant deformity from extrinsic compression. No ulcers, erosions or gastric varices. The duodenal bulb, 1st part of the duodenum, 2nd part of the duodenum and 3rd part of the duodenum appeared normal. No extrinsic compression in the examined duodenum was visualized. 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 It is not in obvious communication with the pancreatic duct. The lesion measured approximately 100 mm by 80 mm in maximal cross-sectional diameter. There was a single compartment without septae. The outer wall of the lesion was thick. There was no associated mass. There was internal debris within the fluid-filled cavity. The wall of the cyst was interrogated utilizing color Doppler imaging to identify any interposed vessels. Using the [employer] stent delivery system, the cavity was punctured under endosonographic guidance using cautery. The 20 mm by 10 mm dumbell shaped fully covered metal stent was then deployed under both endosonographic and fluoroscopic guidance. Stent placement was confirmed on fluoroscopy and endoscopy. There was good drainage of fluid following stent placement. The scope was withdrawn and replaced with the gastroscope. No post-stent dilation performed. Solid debris/necrosis could be seen within the cyst cavity. A 0.025 inch x 450 cm straight Visiglide wire was inserted into the WOPN under fluoroscopic guidance and allowed to coil multiple times. Due to the amount of debris within the cyst, an anchoring 7 Fr by 4 cm zimmon double pigtail stent was placed into the cyst cavity through the AXIOS stent using a stent introducer set. The stent was successfully placed. 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 - Return patient to [facility] for ongoing care. - Defer resumption of diet and medications to the patient's primary team. No restrictions from a post-procedural standpoint. - Observe patient's clinical course following today's procedure with therapeutic intervention. - Watch for bleeding, perforation, and infection. - Repeat EGD in 2-3 weeks for stent removal and cyst reassessment which may require direct endoscopic necrosectomy. Recommend pre-procedure imaging. - The findings and recommendations were discussed with the referring physicians. - The signs and symptoms of potential delayed complications were discussed with the patient/team. - Patient has a contact number available for emergencies. - Follow up with Dr. Agrawal and Dr. Weaver for ongoing inpatient GI consultation. Indication Pseudocyst of pancreas, Chronic pancreatitis, unspecified pancreatitis type (CMS/HCC) Dorothea Rutledge is a 47 y.o. female with a past medical history of factor V Leiden on xarelto, seizures, anxiety, depression and chronic abdominal pain 2/2 recurrent acute on chronic pancreatitis (on Creon and q2 weeks Ketamine infusion) who has been admitted to [facility] ED on 11/11/23 for abdominal pain. Recent imaging via MRI/MRCP on 11/09/23 suggestive of enlarging pancreatic pseudocyst (10 cm) concerning for possible symptomatic cyst. Plan for EUS-guided cyst-gastrostomy. Staff Staff Role No Staff Documented Medications See Anesthesia Record. Preprocedure A history and physical has been performed, and patient medication allergies have been reviewed. The patient's tolerance of previous anesthesia has been reviewed. The risks and benefits of the procedure and the sedation options and risks were discussed with the patient. All questions were answered and informed consent obtained. Details of the Procedure The patient underwent general anesthesia, which was admini (more content not included)... [facility] Work Phone: [facility] Work Phone: Radiology Study observation (narrative) [facility] Work Phone: Glucose Test strip manual (B ld) [Mass/Vol]on 11-14-2023 Glucose [Mass/Vol] 169 mg/dL High 74 - 99 mg/dL [facility] Interpretation and review of laboratory results Abnormal [facility] Glucose [Mass/Vol] 169 mg/dL High 74-99 [facility] Comment on above: Performed By: #### 2 341-6 ####ANDI Cotter ([id number])[facility] ([facility])[address] [place] [address] Glucose [Mass/Vol] 191 mg/dL High 74 - 99 mg/dL [facility] Interpretation and review of laboratory results Abnormal [facility] Glucose [Mass/Vol] 191 mg/dL High 74-99 [facility] Comment on above: Performed By: #### 2 341-6 ####ANDI Cotter ([id number])[facility] ([facility])[address] [place] [address] Glucose [Mass/Vol] 243 mg/dL High 74 - 99 mg/dL [facility] Interpretation and review of laboratory results Abnormal [facility] Glucose [Mass/Vol] 243 mg/dL High 74-99 [facility] Comment on above: Performed By: #### 2 341-6 ####ANDI Cotter ([id number])[facility] ([facility])[address] [place] [address] Bacteria identified Cx Nom ( U)Ordered By: Fatimah Ortega on 11-13-2023 Interpretation and review of laboratory results Abnormal [facility] Streptococcus agalactiae (Group B Streptococcus) is universally susceptible to beta-lactam antibiotics and vancomycin. Routine susceptibility testing not performed. For penicillin allergic patients, please contact the laboratory within 5 days of collection at to request susceptibility testing. [facility] CBC W Auto Differential pane l (Bld)on 11-13-2023 Basophils (Bld) [#/Vol] 0.05 10*3/uL [facility] Basophils/100 WBC (Bld) 0.8 % 0.0 - 2.0 % [facility] Eosinophils (Bld) [#/Vol] 0.33 10*3/uL [facility] Eosinophils/100 WBC (Bld) 5.6 % 0.0 - 6.0 % [facility] Erythrocyte distribution width (RBC) [Ratio] 14.1 % 11.5 - 14.5 % [facility] Hematocrit (Bld) [Volume fraction] 35.0 % Low 36.0 - 46.0 % [facility] Hemoglobin (Bld) [Mass/Vol] 10.9 g/dL Low 12.0 - 16.0 g/dL [facility] Immature granulocytes (Bld) [#/Vol] 0.03 10*3/uL [facility] Immature granulocytes/100 WBC (Bld) 0.5 % 0.0 - 0.9 % [facility] Comment on above: Immature Granulocyte Count (IG) includes promyelocytes, myelocytes and metamyelocytes but does not include bands. Percent differential counts (%) should be interpreted in the context of the absolute cell counts (cells/UL). Interpretation and review of laboratory results Abnormal [facility] Lymphocytes (Bld) [#/Vol] 1.70 10*3/uL [facility] Lymphocytes/100 WBC (Bld) 28.7 % 13.0 - 44.0 % [facility] MCH (RBC) [Entitic mass] 29.1 pg 26.0 - 34.0 pg [facility] MCHC (RBC) [Mass/Vol] 31.1 g/dL Low 32.0 - 36.0 g/dL [facility] MCV (RBC) [Entitic vol] 93 fL 80 - 100 fL [facility] Monocytes (Bld) [#/Vol] 0.49 10*3/uL [facility] Monocytes/100 WBC (Bld) 8.3 % 2.0 - 10.0 % [facility] Neutrophils (Bld) [#/Vol] 3.32 10*3/uL [facility] Comment on above: Percent differential counts (%) should be interpreted in the context of the absolute cell counts (cells/uL). Neutrophils/100 WBC (Bld) 56.1 % 40.0 - 80.0 % [facility] Nucleated RBC/100 WBC (Bld) [Ratio] 0.0 % [facility] Platelets (Bld) [#/Vol] 281 10*3/uL [facility] RBC (Bld) [#/Vol] 3.75 10*6/uL [facility] WBC (Bld) [#/Vol] 5.9 10*3/uL [facility] Basophils (Bld) [#/Vol] 0.05 x10*3/uL Normal 0.00-0.10 [facility] Comment on above: Performed By: #### 5 7021-8 ####ANDI Cotter ([id number])[facility] ([facility])[id number] [place] [address] Basophils/100 WBC (Bld) 0.8 % Normal 0.0-2.0 [facility] Comment on above: Performed By: #### 5 70-8 ####ANDI CHAUDHARY L ([id number])[facility] ([facility])[address] [place] [address] Eosinophils (Bld) [#/Vol] 0.33 x10*3/uL Normal 0.00-0.70 [facility] Comment on above: Performed By: #### 5 7021-8 ####ANDI CHAUDHARY L ([id number])[facility] ([facility])[id number] [place] [address] Eosinophils/100 WBC (Bld) 5.6 % Normal 0.0-6.0 [facility] Comment on above: Performed By: #### 5 7021-8 ####ANDI CHAUDHARY L ([id number])[facility] ([facility])[id number] [place] [address] Erythrocyte distribution width (RBC) [Ratio] 14.1 % Normal 11.5-14.5 [facility] Comment on above: Performed By: #### 5 7021-8 ####ANDI CHAUDHARY L ([id number])[facility] ([facility])[address] [place] [address] Hematocrit (Bld) [Volume fraction] 35.0 % Low 36.0-46.0 [facility] Comment on above: Performed By: #### 5 7021-8 ####ANDI CHAUDHARY L ([id number])[facility] ([facility])[address] [place] [address] Hemoglobin (Bld) [Mass/Vol] 10.9 g/dL Low 12.0-16.0 [facility] Comment on above: Performed By: #### 5 7021-8 ####ANDI Cotter ([id number])[facility] ([facility])[address] [place] [address] Immature granulocytes (Bld) [#/Vol] 0.03 x10*3/uL Normal 0.00-0.70 [facility] Comment on above: Performed By: #### 5 7021-8 ####ANDI Cotter ([id number])[facility] ([facility])[address] [place] [address] Immature granulocytes/100 WBC (Bld) 0.5 % Normal 0.0-0.9 [facility] Comment on above: Result Comment: Debbie ture Granulocyte Count (IG) includes promyelocytes, myelocytes and metamyelocytes but does not include bands. Percent differential counts (%) should be interpreted in the context of the absolute cell counts (cells/UL). Performed By: #### 5 7021-8 ####ANDI Cotter ([id number])[facility] ([facility])[address] [place] [address] Lymphocytes (Bld) [#/Vol] 1.70 x10*3/uL Normal 1.20-4.80 [facility] Comment on above: Performed By: #### 5 7021-8 ####ANDI Cotter ([id number])[facility] ([facility])[address] [place] [address] Lymphocytes/100 WBC (Bld) 28.7 % Normal 13.0-44.0 [facility] Comment on above: Performed By: #### 5 7021-8 ####ANDI Ctoter ([id number])[facility] ([facility])[address] [place] [address] MCH (RBC) [Entitic mass] 29.1 pg Normal 26.0-34.0 [facility] Comment on above: Performed By: #### 5 7021-8 ####ANDI Cotter ([id number])[facility] ([facility])[address] [place] [address] MCHC (RBC) [Mass/Vol] 31.1 g/dL Low 32.0-36.0 [facility] Comment on above: Performed By: #### 5 7021-8 ####ANDI CHAUDHARY L ([id number])[facility] ([facility])[address] [place] [address] MCV (RBC) [Entitic vol] 93 fL Normal 80-100 [facility] Comment on above: Performed By: #### 5 7021-8 ####ANDI Cotter ([id number])[facility] ([facility])[address] [place] [address] Monocytes (Bld) [#/Vol] 0.49 x10*3/uL Normal 0.10-1.00 [facility] Comment on above: Performed By: #### 5 7021-8 ####ANDI CHAUDHARY L ([id number])[facility] ([facility])[address] [place] [address] Monocytes/100 WBC (Bld) 8.3 % Normal 2.0-10.0 [facility] Comment on above: Performed By: #### 5 7021-8 ####ANDI RAJPUTMOFIDELINA L ([id number])[facility] ([facility])[address] [place] [address] Neutrophils (Bld) [#/Vol] 3.32 x10*3/uL Normal 1.20-7.70 [facility] Comment on above: Result Comment: Perc ent differential counts (%) should be interpreted in the context of the absolute cell counts (cells/uL). Performed By: #### 5 7021-8 ####ANDI RAJPUTMOTZDAVID L ([id number])[facility] ([facility])[address] [place] [address] Neutrophils/100 WBC (Bld) 56.1 % Normal 40.0-80.0 [facility] Comment on above: Performed By: #### 5 7021-8 ####ANDI Cotter ([id number])[facility] ([facility])[address] [place] [address] Nucleated RBC/100 WBC (Bld) [Ratio] 0.0 /100 WBCs Normal 0.0-0.0 [facility] Comment on above: Performed By: #### 5 7021-8 ####ANDI Cotter ([id number])[facility] ([facility])[address] [place] [address] Platelets (Bld) [#/Vol] 281 x10*3/uL Normal 150-450 [facility] Comment on above: Performed By: #### 5 7021-8 ####ANDI Cotter ([id number])[facility] ([facility])[id number] [place] [address] RBC (Bld) [#/Vol] 3.75 x10*6/uL Low 4.00-5.20 [facility] Comment on above: Performed By: #### 5 7021-8 ####ANDI Cotter ([id number])[facility] ([facility])[address] [place] [address] WBC (Bld) [#/Vol] 5.9 x10*3/uL Normal 4.4-11.3 [facility] Comment on above: Performed By: #### 5 7021-8 ####ANDI Cotter ([id number])[facility] ([facility])[id number] [place] [address] Extra Urine Vaca Tubeon 10-21 Extra Tube Hold for add-ons. [facility] Comment on above: Auto resulted. [facility] Glucose Test strip manual (B ld) [Mass/Vol]on 11-13-2023 Glucose [Mass/Vol] 241 mg/dL High 74 - 99 mg/dL [facility] Interpretation and review of laboratory results Abnormal [facility] Glucose [Mass/Vol] 241 mg/dL High 74-99 [facility] Comment on above: Performed By: #### 2 341-6 ####ANDI Cotter ([id number])[facility] ([facility])[address] [place] [address] Glucose [Mass/Vol] 208 mg/dL High 74 - 99 mg/dL [facility] Interpretation and review of laboratory results Abnormal [facility] Glucose [Mass/Vol] 208 mg/dL High 74-99 [facility] Comment on above: Performed By: #### 2 341-6 ####ANDI Cotter ([id number])[facility] ([facility])[id number] [place] [address] Glucose [Mass/Vol] 206 mg/dL High 74 - 99 mg/dL [facility] Interpretation and review of laboratory results Abnormal [facility] Glucose [Mass/Vol] 206 mg/dL High 74-99 [facility] Comment on above: Performed By: #### 2 341-6 ####ANDI Cotter ([id number])[facility] ([facility])[id number] [place] [address] Glucose [Mass/Vol] 255 mg/dL High 74 - 99 mg/dL [facility] Interpretation and review of laboratory results Abnormal [facility] Glucose [Mass/Vol] 255 mg/dL High 74-99 [facility] Comment on above: Performed By: #### 2 341-6 ####ANDI Cotter ([id number])[facility] ([facility])[id number] [place] [address] Glucose [Mass/Vol] 247 mg/dL High 74 - 99 mg/dL [facility] Interpretation and review of laboratory results Abnormal [facility] Glucose [Mass/Vol] 247 mg/dL High 74-99 [facility] Comment on above: Performed By: #### 2 341-6 ####ANDI Cotter ([id number])[facility] ([facility])[id number] [place] [address] Glucose [Mass/Vol] 210 mg/dL High 74 - 99 mg/dL [facility] Interpretation and review of laboratory results Abnormal [facility] Glucose [Mass/Vol] 210 mg/dL High 74-99 [facility] Comment on above: Performed By: #### 2 341-6 ####ANDI Cotter ([id number])[facility] ([facility])[address] [place] [address] Heparin Assay, UFHon 024 Heparin unfractionated Chromogenic method Qn (PPP) 0.4 See Comment Below for Therapeutic Ranges IU/mL [facility] Heparin unfractionated Chrom ogenic method Qn (PPP)on 11-13-2023 Interpretation and review of laboratory results Normal [facility] The therapeutic reference range for UFH may be either 0.3-0.6 IU/mL or 0.3-0.7 IU/mL based on the clinical setting for anticoagulant therapy and the associated nomogram used. For Heparin dosing guidelines based on clinical scenario and Heparin Assay results, please refer to local Pharmacy and the [facility] Guidelines for Anticoagulation Therapy available on the [facility] intranet at: [email or web address] [facility] Heparin.unfractionatedon Heparin unfractionated Chromogenic method Qn (PPP) 0.4 IU/mL Normal See Comment Below for Therapeutic Ranges [facility] Comment on above: Order Comment: Obtai n 4 hours after any Heparin dosage change. Nursing to release order.The therapeutic reference range for UFH may be either 0.3-0.6 IU/mL or 0.3-0.7 IU/mL based on the clinical setting for anticoagulant therapy and the associated nomogram used. For Heparin dosing guidelines based on clinical scenario and Heparin Assay results, please refer to local Pharmacy and the [facility] Guidelines for Anticoagulation Therapy available on the [facility] intranet at: [email or web address], [place]_Guidelines_for_Anticoagu.aspx Performed By: #### 3 274-8 ####ANDI Cotter ([id number])[facility] ([facility])[address] [place] [address] Magnesiumon 11-13-2023 Magnesium [Mass/Vol] 1.93 mg/dL 1.60 - 2.40 mg/dL [facility] Magnesium [Mass/Vol] 1.93 mg/dL Normal 1.60-2.40 [facility] Comment on above: Performed By: #### 1 9123-9 ####ANDI Cotter ([id number])[facility] ([facility])[address] [place] [address] Magnesium [Mass/Vol]on 11-13 Interpretation and review of laboratory results Normal [facility] Renal function 2000 panelon 11-13-2023 Albumin BCP dye [Mass/Vol] 3.9 g/dL 3.4 - 5.0 g/dL [facility] Anion gap [Moles/Vol] 16 mmol/L 10 - 2 0 mmol/L [facility] Calcium [Mass/Vol] 9.6 mg/dL 8.6 - 10. 6 mg/dL [facility] Chloride [Moles/Vol] 95 mmol/L Low 98 - 10 7 mmol/L [facility] CO2 [Moles/Vol] 28 mmol/L 21 - 32 mmol/L [facility] Creatinine [Mass/Vol] 0.75 mg/dL 0.50 - 1.05 mg/dL [facility] eGFR - PINF [facility] Comment on above: Calculations of estuardo mated GFR are performed using the 2020 CKD-EPI Study Refit equation without the race variable for the IDMS-Traceable creatinine methods. https://jasn.asnjournals.org/content//ASN.090905 6313 Glucose [Mass/Vol] 202 mg/dL High 74 - 99 mg/dL [facility] Interpretation and review of laboratory results Abnormal [facility] Phosphate [Mass/Vol] 4.3 mg/dL 2.5 - 4 .9 mg/dL [facility] Comment on above: The performance timi acteristics of phosphorus testing in heparinized plasma have been validated by the individual laboratory site where testing is performed. Testing on heparinized plasma is not approved by the FDA; however, such approval is not necessary. Potassium [Moles/Vol] 3.4 mmol/L Low 3.5 - 5.3 mmol/L [facility] Sodium [Moles/Vol] 136 mmol/L 136 - 145 mmol/L [facility] Urea nitrogen [Mass/Vol] 12 mg/dL 6 - 23 mg/dL [facility] Albumin BCP dye [Mass/Vol] 3.9 g/dL Normal 3.4-5.0 [facility] Comment on above: Performed By: #### 2 4362-6 ####ANDI Cotter ([id number])[facility] ([facility])[address] [place] [address] Anion gap [Moles/Vol] 16 mmol/L Normal 10-20 [facility] Comment on above: Performed By: #### 2 4362-6 ####ANDI Cotter ([id number])[facility] ([facility])[address] [place] [address] Calcium [Mass/Vol] 9.6 mg/dL Normal 8.6-10.6 [facility] Comment on above: Performed By: #### 2 4362-6 ####ANDI CHAUDHARY L ([id number])[facility] ([facility])[address] [place] [address] Chloride [Moles/Vol] 95 mmol/L Low 98-107 [facility] Comment on above: Performed By: #### 2 4362-6 ####ANDI CHAUDHARY L ([id number])[facility] ([facility])[address] [place] [address] CO2 [Moles/Vol] 28 mmol/L Normal 21-32 [facility] Comment on above: Performed By: #### 2 4362-6 ####ANDI CHAUDHARY L ([id number])[facility] ([facility])[address] [place] [address] Creatinine [Mass/Vol] 0.75 mg/dL Normal 0.50-1.05 [facility] Comment on above: Performed By: #### 2 4362-6 ####ANDI Cotter ([id number])[facility] ([facility])[address] [place] [address] GFR/1.73 sq M.predicted MDRD (S/P/Bld) [Vol rate/Area] mL/min/{1.73_m2} Normal >60 [facility] Comment on above: Result Comment: Calc ulations of estimated GFR are performed using the 2020 CKD-EPI Study Refit equation without the race variable for the IDMS-Traceable creatinine methods.https://jasn.asnjournals.org/content/early// N.3916777449 Performed By: #### 2 4362-6 ####ANDI Cotter ([id number])[facility] ([facility])[address] [place] [address] Glucose [Mass/Vol] 202 mg/dL High 74-99 [facility] Comment on above: Performed By: #### 2 4362-6 ####ANDI Cotter ([id number])[facility] ([facility])[address] [place] [address] Phosphate [Mass/Vol] 4.3 mg/dL Normal 2.5-4.9 [facility] Comment on above: Result Comment: The performance characteristics of phosphorus testing in heparinized plasma have been validated by the individual laboratory site where testing is performed. Testing on heparinized plasma is not approved by the FDA; however, such approval is not necessary. Performed By: #### 2 4362-6 ####ANDI Cotter ([id number])[facility] ([facility])[address] [place] [address] Potassium [Moles/Vol] 3.4 mmol/L Low 3.5-5.3 [facility] Comment on above: Performed By: #### 2 4362-6 ####ANDI Cotter ([id number])[facility] ([facility])[address] [place] [address] Sodium [Moles/Vol] 136 mmol/L Normal 136-145 [facility] Comment on above: Performed By: #### 2 4362-6 ####ANDI Cotter ([id number])[facility] ([facility])[address] [place] [address] Urea nitrogen [Mass/Vol] 12 mg/dL Normal 6-23 [facility] Comment on above: Performed By: #### 2 4362-6 ####ANDI Cotter ([id number])[facility] ([facility])[id number] [place] [address] Urine cultureOrdered By: Kadeem Ortega on 11-13-2023 Bacteria identified Cx Nom (U) <10,000 Streptococcus agalactiae (Group B Streptococcus) Abnormal [facility] Bacteria identifiedon 2023 Bacteria identified Cx Nom (U) Abnormal [facility] Comment on above: Performed By: #### 6 30-4 ####ANDI Cotter ([id number])[facility] ([facility])[address] [place] [address] CBC panel Auto (Bld)on 11-12 Erythrocyte distribution width (RBC) [Ratio] 14.3 % 11.5 - 14.5 % [facility] Hematocrit (Bld) [Volume fraction] 35.0 % Low 36.0 - 46.0 % [facility] Hemoglobin (Bld) [Mass/Vol] 11.1 g/dL Low 12.0 - 16.0 g/dL [facility] Interpretation and review of laboratory results Abnormal [facility] MCH (RBC) [Entitic mass] 29.0 pg 26.0 - 34.0 pg [facility] MCHC (RBC) [Mass/Vol] 31.7 g/dL Low 32.0 - 36.0 g/dL [facility] MCV (RBC) [Entitic vol] 91 fL 80 - 100 fL [facility] Nucleated RBC/100 WBC (Bld) [Ratio] 0.0 % [facility] Platelets (Bld) [#/Vol] 255 10*3/uL [facility] RBC (Bld) [#/Vol] 3.83 10*6/uL Low [facility] WBC (Bld) [#/Vol] 5.3 10*3/uL [facility] Erythrocyte distribution width (RBC) [Ratio] 14.3 % Normal 11.5-14.5 [facility] Comment on above: Performed By: #### 5 8410-2 ####ANDI Cotter ([id number])[facility] ([facility])[address] [place] [address] Hematocrit (Bld) [Volume fraction] 35.0 % Low 36.0-46.0 [facility] Comment on above: Performed By: #### 5 8410-2 ####ANDI Cotter ([id number])[facility] ([facility])[address] [place] [address] Hemoglobin (Bld) [Mass/Vol] 11.1 g/dL Low 12.0-16.0 [facility] Comment on above: Performed By: #### 5 8410-2 ####ANDI Cotter ([id number])[facility] ([facility])[address] [place] [address] MCH (RBC) [Entitic mass] 29.0 pg Normal 26.0-34.0 [facility] Comment on above: Performed By: #### 5 8410-2 ####ANDI CHAUDHARY L ([id number])[facility] ([facility])[address] [place] [address] MCHC (RBC) [Mass/Vol] 31.7 g/dL Low 32.0-36.0 [facility] Comment on above: Performed By: #### 5 8410-2 ####ANDI Cotter ([id number])[facility] ([facility])[address] [place] [address] MCV (RBC) [Entitic vol] 91 fL Normal 80-100 [facility] Comment on above: Performed By: #### 5 8410-2 ####ANDI Cotter ([id number])[facility] ([facility])[address] [place] [address] Nucleated RBC/100 WBC (Bld) [Ratio] 0.0 /100 WBCs Normal 0.0-0.0 [facility] Comment on above: Performed By: #### 5 8410-2 ####ANDI Cotter ([id number])[facility] ([facility])[address] [place] [address] Platelets (Bld) [#/Vol] 255 x10*3/uL Normal 150-450 [facility] Comment on above: Performed By: #### 5 8410-2 ####ANDI Cotter ([id number])[facility] ([facility])[address] [place] [address] RBC (Bld) [#/Vol] 3.83 x10*6/uL Low 4.00-5.20 [facility] Comment on above: Performed By: #### 5 8410-2 ####ANDI Cotter ([id number])[facility] ([facility])[address] [place] [address] WBC (Bld) [#/Vol] 5.3 x10*3/uL Normal 4.4-11.3 [facility] Comment on above: Performed By: #### 5 8410-2 ####ANDI Cotter ([id number])[facility] ([facility])[address] [place] [address] Glucose Test strip manual (B ld) [Mass/Vol]on 11-12-2023 Glucose [Mass/Vol] 229 mg/dL High 74 - 99 mg/dL [facility] Interpretation and review of laboratory results Abnormal [facility] Glucose [Mass/Vol] 229 mg/dL High 74-99 [facility] Comment on above: Performed By: #### 2 341-6 ####ANDI Cotter ([id number])[facility] ([facility])[address] [place] [address] Glucose [Mass/Vol] 294 mg/dL High 74 - 99 mg/dL [facility] Interpretation and review of laboratory results Abnormal [facility] Glucose [Mass/Vol] 294 mg/dL High 74-99 [facility] Comment on above: Performed By: #### 2 341-6 ####ANDI Cotter ([id number])[facility] ([facility])[address] [place] [address] Glucose [Mass/Vol] 275 mg/dL High 74 - 99 mg/dL [facility] Comment on above: RN/MD NOTIFIED Interpretation and review of laboratory results Abnormal [facility] Glucose [Mass/Vol] 275 mg/dL High 74-99 [facility] Comment on above: Result Comment: RN/Abdoulaye Dillon NOTIFIED Performed By: #### 2 341-6 ####ANDI Cotter ([id number])[facility] ([facility])[address] [place] [address] Glucose [Mass/Vol] 214 mg/dL High 74 - 99 mg/dL [facility] Interpretation and review of laboratory results Abnormal [facility] Glucose [Mass/Vol] 214 mg/dL High 74-99 [facility] Comment on above: Performed By: #### 2 341-6 ####ANDI Cotter ([id number])[facility] ([facility])[id number] [place] [address] Glucose [Mass/Vol] 191 mg/dL High 74 - 99 mg/dL [facility] Interpretation and review of laboratory results Abnormal [facility] Glucose [Mass/Vol] 191 mg/dL High 74-99 [facility] Comment on above: Performed By: #### 2 341-6 ####ANDI Cotter ([id number])[facility] ([facility])[address] [place] [address] Heparin Assay, UFHon 024 Heparin unfractionated Chromogenic method Qn (PPP) 0.4 See Comment Below for Therapeutic Ranges IU/mL [facility] Heparin unfractionated Chromogenic method Qn (PPP) 0.2 See Comment Below for Therapeutic Ranges IU/mL [facility] Heparin unfractionated Chromogenic method Qn (PPP) 0.3 See Comment Below for Therapeutic Ranges IU/mL [facility] Heparin unfractionated Chromogenic method Qn (PPP) 0.2 See Comment Below for Therapeutic Ranges IU/mL [facility] Heparin unfractionated Chromogenic method Qn (PPP) 0.2 See Comment Below for Therapeutic Ranges IU/mL [facility] Heparin unfractionated Chrom ogenic method Qn (PPP)on 11-12-2023 Interpretation and review of laboratory results Normal [facility] The therapeutic reference range for UFH may be either 0.3-0.6 IU/mL or 0.3-0.7 IU/mL based on the clinical setting for anticoagulant therapy and the associated nomogram used. For Heparin dosing guidelines based on clinical scenario and Heparin Assay results, please refer to local Pharmacy and [facility] Guidelines for Anticoagulation Therapy available on the [facility] intranet at: [email or web address]://Wutsat Systemsity.[facility] [email or web address]/Pharmacy/P ages/[facility] ls_Guidelines_for_Antic oagu.aspx [facility] Interpretation and review of laboratory results Normal [facility] The therapeutic reference range for UFH may be either 0.3-0.6 IU/mL or 0.3-0.7 IU/mL based on the clinical setting for anticoagulant therapy and the associated nomogram used. For Heparin dosing guidelines based on clinical scenario and Heparin Assay results, please refer to local Pharmacy and [facility] Guidelines for Anticoagulation Therapy available on the [facility] intranet at: [email or web address]://[email or web address] Near Me.[facility] [email or web address]/Pharmacy/P ages/[facility] ls_Guidelines_for_Antic oagu.aspx [facility] Interpretation and review of laboratory results Normal [facility] The therapeutic reference range for UFH may be either 0.3-0.6 IU/mL or 0.3-0.7 IU/mL based on the clinical setting for anticoagulant therapy and the associated nomogram used. For Heparin dosing guidelines based on clinical scenario and Heparin Assay results, please refer to local Pharmacy and the [facility] Guidelines for Anticoagulation Therapy available on the [facility] intranet at: https://Wutsat Systemsmer[facility] Retailigences.[email or web address]/Pharmacy/P ages/[facility] ls_Guidelines_for_Antic oagu.aspx [facility] Interpretation and review of laboratory results Normal [facility] The therapeutic reference range for UFH may be either 0.3-0.6 IU/mL or 0.3-0.7 IU/mL based on the clinical setting for anticoagulant therapy and the associated nomogram used. For Heparin dosing guidelines based on clinical scenario and Heparin Assay results, please refer to local Pharmacy and [facility] Guidelines for Anticoagulation Therapy available on the [facility] intranet at: [email or web address].[facility] [email or web address]/Pharmacy/P ages/[facility] ls_Guidelines_for_Antic oagu.aspx [facility] Interpretation and review of laboratory results Normal [facility] The therapeutic reference range for UFH may be either 0.3-0.6 IU/mL or 0.3-0.7 IU/mL based on the clinical setting for anticoagulant therapy and the associated nomogram used. For Heparin dosing guidelines based on clinical scenario and Heparin Assay results, please refer to local Pharmacy and [facility] Guidelines for Anticoagulation Therapy available on the [facility] intranet at: https://Wutsat Systemsmer[facility] SurgiQuest.[email or web address]/Pharmacy/P ages/[facility] ls_Guidelines_for_Antic oagu.aspx [facility] Heparin.unfractionatedon Heparin unfractionated Chromogenic method Qn (PPP) 0.4 IU/mL Normal See Comment Below for Therapeutic Ranges [facility] Comment on above: Order Comment: Obtai n 4 hours after any Heparin dosage change. Nursing to release order.The therapeutic reference range for UFH may be either 0.3-0.6 IU/mL or 0.3-0.7 IU/mL based on the clinical setting for anticoagulant therapy and the associated nomogram used. For Heparin dosing guidelines based on clinical scenario and Heparin Assay results, please refer to local Pharmacy and [facility] Guidelines for Anticoagulation Therapy available on the [facility] intranet at: [email or web address]://[email or web address]/[email or web address]_Guidelines_for_Anticoagu.aspx Performed By: #### 3 274-8 ####ANDI Cotter ([id number])[facility] ([facility])[address] [place] [address] Heparin unfractionated Chromogenic method Qn (PPP) 0.2 IU/mL Normal See Comment Below for Therapeutic Ranges [facility] Comment on above: Order Comment: Obtai n 4 hours after any Heparin dosage change. Nursing to release order.The therapeutic reference range for UFH may be either 0.3-0.6 IU/mL or 0.3-0.7 IU/mL based on the clinical setting for anticoagulant therapy and the associated nomogram used. For Heparin dosing guidelines based on clinical scenario and Heparin Assay results, please refer to local Pharmacy and the [facility] Guidelines for Anticoagulation Therapy available on the [facility] intranet at: [email or web address]://[email or web address]/[email or web address]_ [facility]_Guidelines_for_Anticoagu.aspx Performed By: #### 3 274-8 ####ANDI Cotter ([id number])[facility] ([facility])[address] [place], [place] [address] Heparin unfractionated Chromogenic method Qn (PPP) 0.3 IU/mL Normal See Comment Below for Therapeutic Ranges [facility] Comment on above: Order Comment: Obtai n 4 hours after any Heparin dosage change. Nursing to release order.The therapeutic reference range for UFH may be either 0.3-0.6 IU/mL or 0.3-0.7 IU/mL based on the clinical setting for anticoagulant therapy and the associated nomogram used. For Heparin dosing guidelines based on clinical scenario and Heparin Assay results, please refer to local Pharmacy and the [facility] Guidelines for Anticoagulation Therapy available on the [facility] intranet at: [email or web address]://[email or web address]/[email or web address]_Guidelines_for_Anticoagu.aspx Performed By: #### 3 274-8 ####ANDI Cotter ([id number])[facility] ([facility])[address] [place] [address] Heparin unfractionated Chromogenic method Qn (PPP) 0.2 IU/mL Normal See Comment Below for Therapeutic Ranges [facility] Comment on above: Order Comment: Obtai n 4 hours after any Heparin dosage change. Nursing to release order.The therapeutic reference range for UFH may be either 0.3-0.6 IU/mL or 0.3-0.7 IU/mL based on the clinical setting for anticoagulant therapy and the associated nomogram used. For Heparin dosing guidelines based on clinical scenario and Heparin Assay results, please refer to local Pharmacy and the [facility] Guidelines for Anticoagulation Therapy available on the [facility] intranet at: [email or web address]://[email or web address]/[email or web address]_Guidelines_for_Anticoagu.aspx Performed By: #### 3 274-8 ####ANDI Cotter ([id number])[facility] ([facility])[address] [place] [address] Magnesiumon 11-12-2023 Magnesium [Mass/Vol] 1.81 mg/dL 1.60 - 2.40 mg/dL [facility] Magnesium [Mass/Vol] 1.81 mg/dL Normal 1.60-2.40 [facility] Comment on above: Performed By: #### 1 9123-9 ####ANDI Cotter ([id number])[facility] ([facility])[address] [place] [address] Magnesium [Mass/Vol]on 11-12 Interpretation and review of laboratory results Normal [facility] No Panel Informationon 11-12 [facility] Renal function 2000 panelon 11-12-2023 Albumin BCP dye [Mass/Vol] 4.0 g/dL 3.4 - 5.0 g/dL [facility] Anion gap [Moles/Vol] 16 mmol/L 10 - 2 0 mmol/L [facility] Calcium [Mass/Vol] 8.8 mg/dL 8.6 - 10. 6 mg/dL [facility] Chloride [Moles/Vol] 98 mmol/L 98 - 10 7 mmol/L [facility] CO2 [Moles/Vol] 26 mmol/L 21 - 32 mmol/L [facility] Creatinine [Mass/Vol] 0.68 mg/dL 0.50 - 1.05 mg/dL [facility] eGFR - PINF [facility] Comment on above: Calculations of estuardo mated GFR are performed using the 2020 CKD-EPI Study Refit equation without the race variable for the IDMS-Traceable creatinine methods. https://jasn.asnjournals.org/content/early/ASN.698072 6572 Glucose [Mass/Vol] 205 mg/dL High 74 - 99 mg/dL [facility] Interpretation and review of laboratory results Abnormal [facility] Phosphate [Mass/Vol] 2.8 mg/dL 2.5 - 4 .9 mg/dL [facility] Comment on above: The performance timi acteristics of phosphorus testing in heparinized plasma have been validated by the individual laboratory site where testing is performed. Testing on heparinized plasma is not approved by the FDA; however, such approval is not necessary. Potassium [Moles/Vol] 3.6 mmol/L 3.5 - 5.3 mmol/L [facility] Sodium [Moles/Vol] 136 mmol/L 136 - 145 mmol/L [facility] Urea nitrogen [Mass/Vol] 9 mg/dL 6 - 23 mg/dL [facility] Albumin BCP dye [Mass/Vol] 4.0 g/dL Normal 3.4-5.0 [facility] Comment on above: Performed By: #### 2 4362-6 ####ANDI Cotter ([id number])[facility] ([facility])[address] [place] [address] Anion gap [Moles/Vol] 16 mmol/L Normal 10-20 [facility] Comment on above: Performed By: #### 2 4362-6 ####ANDI Cotter ([id number])[facility] ([facility])[address] [place] [address] Calcium [Mass/Vol] 8.8 mg/dL Normal 8.6-10.6 [facility] Comment on above: Performed By: #### 2 4362-6 ####ANDI Cotter ([id number])[facility] ([facility])[address] [place] [address] Chloride [Moles/Vol] 98 mmol/L Normal 98-107 [facility] Comment on above: Performed By: #### 2 4362-6 ####ANDI Cotter ([id number])[facility] ([facility])[address] [place] [address] CO2 [Moles/Vol] 26 mmol/L Normal 21-32 [facility] Comment on above: Performed By: #### 2 4362-6 ####ANDI Cotter ([id number])[facility] ([facility])[address] [place] [address] Creatinine [Mass/Vol] 0.68 mg/dL Normal 0.50-1.05 [facility] Comment on above: Performed By: #### 2 4362-6 ####ANDI Cotter ([id number])[facility] ([facility])[address] [place] [address] GFR/1.73 sq M.predicted MDRD (S/P/Bld) [Vol rate/Area] mL/min/{1.73_m2} Normal >60 [facility] Comment on above: Result Comment: Calc ulations of estimated GFR are performed using the 2020 CKD-EPI Study Refit equation without the race variable for the IDMS-Traceable creatinine methods.https://jasn.asnjournals.org/content// N.9388058469 Performed By: #### 2 4362-6 ####ANDI Cotter ([id number])[facility] ([facility])[address] [place] [address] Glucose [Mass/Vol] 205 mg/dL High 74-99 [facility] Comment on above: Performed By: #### 2 4362-6 ####ANDI Cotter ([id number])[facility] ([facility])[address] [place] [address] Phosphate [Mass/Vol] 2.8 mg/dL Normal 2.5-4.9 [facility] Comment on above: Result Comment: The performance characteristics of phosphorus testing in heparinized plasma have been validated by the individual laboratory site where testing is performed. Testing on heparinized plasma is not approved by the FDA; however, such approval is not necessary. Performed By: #### 2 4362-6 ####ANDI Cotter ([id number])[facility] ([facility])[id number] [place] [address] Potassium [Moles/Vol] 3.6 mmol/L Normal 3.5-5.3 [facility] Comment on above: Performed By: #### 2 4362-6 ####ANDI Cotter ([id number])[facility] ([facility])[address] [place] [address] Sodium [Moles/Vol] 136 mmol/L Normal 136-145 [facility] Comment on above: Performed By: #### 2 4362-6 ####ANDI Cotter ([id number])[facility] ([facility])[id number] [place] [address] Urea nitrogen [Mass/Vol] 9 mg/dL Normal 6-23 [facility] Comment on above: Performed By: #### 2 4362-6 ####ANDI Cotter ([id number])[facility] ([facility])[id number] [place] [address] Urinalysis complete W Reflex Culture panel (U)on 11-12-2023 Appearance (U) Clear Clear [facility] Bilirubin (U) [Mass/Vol] Negative NEGATIVE [facility] Color (U) Light-Yellow Light-Yellow , Yellow, Dark-Yellow [facility] Glucose Auto test strip (U) [Mass/Vol] 70 (1+) Abnormal Normal mg/dL [facility] Interpretation and review of laboratory results Abnormal [facility] Ketones (U) [Mass/Vol] Negative NEGATIVE mg/dL [facility] Leukocyte esterase Auto test strip Ql (U) Negative NEGATIVE [facility] Nitrite Auto test strip Ql (U) Negative NEGATIVE [facility] pH (U) 7.0 [pH] 5.0, 5.5, 6.0, 6.5, 7.0, 7.5, 8.0 [facility] Protein (U) [Mass/Vol] Negative NEGATIVE, 10 (TRACE), 20 (TRACE) mg/dL [facility] RBC (U) [#/Vol] Negative NEGATIVE [facility] Specific gravity (U) [Rel density] 1.008 1.005 - 1.035 [facility] Urobilinogen (U) [Mass/Vol] Normal Normal mg/dL [facility] Appearance (U) Clear Normal Clear [facility] Comment on above: Performed By: #### 5 8077-9 ####ANDI Cotter ([id number])[facility] ([facility])[id number] [place] [address] Bilirubin (U) [Mass/Vol] Negative Normal NEGATIVE [facility] Comment on above: Performed By: #### 5 8077-9 ####ANDI Cotter ([id number])[facility] ([facility])[address] [place] [address] Color (U) Light-Yellow Normal Light-Yellow , Yellow, Dark-Yellow [facility] Comment on above: Performed By: #### 5 8077-9 ####ANDI Cotter ([id number])[facility] ([facility])[id number] [place] [address] Glucose Auto test strip (U) [Mass/Vol] 70 (1+) Abnormal Normal [facility] Comment on above: Performed By: #### 5 8077-9 ####ANDI Cotter ([id number])[facility] ([facility])[id number] [place] [address] Ketones (U) [Mass/Vol] Negative Normal NEGATIVE [facility] Comment on above: Performed By: #### 5 8077-9 ####ANDI Cotter ([id number])[facility] ([facility])[address] [place] [address] Leukocyte esterase Auto test strip Ql (U) Negative Normal NEGATIVE [facility] Comment on above: Performed By: #### 5 8077-9 ####ANDI Cotter ([id number])[facility] ([facility])[address] [place] [address] Nitrite Auto test strip Ql (U) Negative Normal NEGATIVE [facility] Comment on above: Performed By: #### 5 8077-9 ####ANDI Cotter ([id number])[facility] ([facility])[id number] [place] [address] pH (U) 7.0 [pH] Normal 5.0, 5.5, 6.0, 6.5, 7.0, 7.5, 8.0 [facility] Comment on above: Performed By: #### 5 8077-9 ####ANDI Cotter ([id number])[facility] ([facility])[address] [place] [address] Protein (U) [Mass/Vol] Negative Normal NEGATIVE, 10 (TRACE), 20 (TRACE) [facility] Comment on above: Performed By: #### 5 8077-9 ####ANDI Cotter ([id number])[facility] ([facility])[address] [place] [address] RBC (U) [#/Vol] Negative Normal NEGATIVE [facility] Comment on above: Performed By: #### 5 8077-9 ####ANDI Cotter ([id number])[facility] ([facility])[address] [place] [address] Specific gravity (U) [Rel density] 1.008 Normal 1.005-1.035 [facility] Comment on above: Performed By: #### 5 8077-9 ####ANDI Cotter ([id number])[facility] ([facility])[address] [place] [address] Urobilinogen (U) [Mass/Vol] Normal Normal Normal [facility] Comment on above: Performed By: #### 5 8077-9 ####ANDI Cotter ([id number])[facility] ([facility])[id number] [place] [address] CBC panel Auto (Bld)on 11-11 Erythrocyte distribution width (RBC) [Ratio] 14.2 % 11.5 - 14.5 % [facility] Hematocrit (Bld) [Volume fraction] 33.3 % Low 36.0 - 46.0 % [facility] Hemoglobin (Bld) [Mass/Vol] 11.1 g/dL Low 12.0 - 16.0 g/dL [facility] Interpretation and review of laboratory results Abnormal [facility] MCH (RBC) [Entitic mass] 29.2 pg 26.0 - 34.0 pg [facility] MCHC (RBC) [Mass/Vol] 33.3 g/dL 32.0 - 36.0 g/dL [facility] MCV (RBC) [Entitic vol] 88 fL 80 - 100 fL [facility] Nucleated RBC/100 WBC (Bld) [Ratio] 0.0 % [facility] Platelets (Bld) [#/Vol] 243 10*3/uL [facility] RBC (Bld) [#/Vol] 3.80 10*6/uL Low [facility] WBC (Bld) [#/Vol] 4.9 10*3/uL [facility] Erythrocyte distribution width (RBC) [Ratio] 14.2 % Normal 11.5-14.5 [facility] Comment on above: Order Comment: Obtai n prior to initiation of Heparin Therapy if not obtained in prior 24 hours - Nursing to release order. Performed By: #### 5 8410-2 ####ANDI Cotter ([id number])[facility] ([facility])[address] [place] [address] Hematocrit (Bld) [Volume fraction] 33.3 % Low 36.0-46.0 [facility] Comment on above: Order Comment: Obtai n prior to initiation of Heparin Therapy if not obtained in prior 24 hours - Nursing to release order. Performed By: #### 5 8410-2 ####ANDI Cotter ([id number])[facility] ([facility])[id number] [place] [address] Hemoglobin (Bld) [Mass/Vol] 11.1 g/dL Low 12.0-16.0 [facility] Comment on above: Order Comment: Obtai n prior to initiation of Heparin Therapy if not obtained in prior 24 hours - Nursing to release order. Performed By: #### 5 8410-2 ####ANDI Cotter ([id number])[facility] ([facility])[address] [place] [address] MCH (RBC) [Entitic mass] 29.2 pg Normal 26.0-34.0 [facility] Comment on above: Order Comment: Obtai n prior to initiation of Heparin Therapy if not obtained in prior 24 hours - Nursing to release order. Performed By: #### 5 8410-2 ####ANDI Cotter ([id number])[facility] ([facility])[address] [place] [address] MCHC (RBC) [Mass/Vol] 33.3 g/dL Normal 32.0-36.0 [facility] Comment on above: Order Comment: Obtai n prior to initiation of Heparin Therapy if not obtained in prior 24 hours - Nursing to release order. Performed By: #### 5 8410-2 ####ANDI Cotter ([id number])[facility] ([facility])[id number] [place] [address] MCV (RBC) [Entitic vol] 88 fL Normal 80-100 [facility] Comment on above: Order Comment: Obtai n prior to initiation of Heparin Therapy if not obtained in prior 24 hours - Nursing to release order. Performed By: #### 5 8410-2 ####ANDI Cotter ([id number])[facility] ([facility])[id number] [place] [address] Nucleated RBC/100 WBC (Bld) [Ratio] 0.0 /100 WBCs Normal 0.0-0.0 [facility] Comment on above: Order Comment: Obtai n prior to initiation of Heparin Therapy if not obtained in prior 24 hours - Nursing to release order. Performed By: #### 5 8410-2 ####ANDI Cotter ([id number])[facility] ([facility])[address] [place] [address] Platelets (Bld) [#/Vol] 243 x10*3/uL Normal 150-450 [facility] Comment on above: Order Comment: Obtai n prior to initiation of Heparin Therapy if not obtained in prior 24 hours - Nursing to release order. Performed By: #### 5 8410-2 ####ANDI Cotter ([id number])[facility] ([facility])[id number] [place] [address] RBC (Bld) [#/Vol] 3.80 x10*6/uL Low 4.00-5.20 [facility] Comment on above: Order Comment: Obtai n prior to initiation of Heparin Therapy if not obtained in prior 24 hours - Nursing to release order. Performed By: #### 5 8410-2 ####ANDI Cotter ([id number])[facility] ([facility])[id number] [place] [address] WBC (Bld) [#/Vol] 4.9 x10*3/uL Normal 4.4-11.3 [facility] Comment on above: Order Comment: Obtai n prior to initiation of Heparin Therapy if not obtained in prior 24 hours - Nursing to release order. Performed By: #### 5 8410-2 ####ANDI Cotter ([id number])[facility] ([facility])[id number] [place] [address] Coagulation surface inducedo n 11-11-2023 aPTT Coag (PPP) [Time] 29 s Normal 27-38 [facility] Comment on above: Order Comment: Prior to initiating heparin if not obtained in prior 48 hours. Nursing to release order.The APTT is no longer used for monitoring Unfractionated Heparin Therapy. For monitoring Heparin Therapy, use the Heparin Assay. Performed By: #### 1 4979-9 ####ANDI Cotter ([id number])[facility] ([facility])[address] [place] [address] Coagulation tissue factor in ducedon 11-11-2023 PT Coag (PPP) [Time] 13.6 s High 9.8-12.8 [facility] Comment on above: Order Comment: If pa mady has not had PT + INR in the last 24 hours. Nursing to release order. Performed By: #### 5 902-2 ####ANDI Cotter ([id number])[facility] ([facility])[address] [place] [address] DRUG SCREEN,URINEon 11-11-19 Amphetamines Screen Ql (U) Negative Normal Presumptive Negative [facility] Comment on above: Order Comment: Drug screen results are presumptive and should not be used to assesscompliance with prescribed medication. Contact the performing [facility] laboratoryto add-on definitive confirmatory testing if clinically indicated.Toxicology screening results are reported qualitatively. The concentration must???be greater than or equal to the cutoff to be reported as positive. The concentrationat which the screening test can detect an individual drug or metabolite varies.The absence of expected drug(s) and/or drug metabolite(s) may indicate non-compliance,inappropriate timing of specimen collection relative to drug administration, poor drugabsorption, diluted/adulterated urine, or limitations of testing. For medical purposesonly; not valid for forensic use.Interpretive questions should be directed to the laboratory medical directors. Result Comment: CUTO FF LEVEL: 500 NG/MLCross-reactivity has been reported with high concentrationsof the following drugs: buproprion, chloroquine, chlorpromazine,ephedrine, mephentermine, fenfluramine, phentermine,phenylpropanolamine, pseudoephedrine, and propranolol. Performed By: #### D RUG3 ####ANDI Cotter ([id number])[facility] ([facility])[address] [place] [address] Barbiturates Screen Ql (U) Negative Normal Presumptive Negative [facility] Comment on above: Order Comment: Drug screen results are presumptive and should not be used to assesscompliance with prescribed medication. Contact the performing [facility] laboratoryto add-on definitive confirmatory testing if clinically indicated.Toxicology screening results are reported qualitatively. The concentration must???be greater than or equal to the cutoff to be reported as positive. The concentrationat which the screening test can detect an individual drug or metabolite varies.The absence of expected drug(s) and/or drug metabolite(s) may indicate non-compliance,inappropriate timing of specimen collection relative to drug administration, poor drugabsorption, diluted/adulterated urine, or limitations of testing. For medical purposesonly; not valid for forensic use.Interpretive questions should be directed to the laboratory medical directors. Result Comment: CUTO FF LEVEL: 200 NG/ML Performed By: #### D RUG3 ####ANDI Cotter ([id number])[facility] ([facility])[address] [place] [address] Benzodiazepines Ql (U) Negative Normal Presumptive Negative [facility] Comment on above: Order Comment: Drug screen results are presumptive and should not be used to assesscompliance with prescribed medication. Contact the performing [facility] laboratoryto add-on definitive confirmatory testing if clinically indicated.Toxicology screening results are reported qualitatively. The concentration must???be greater than or equal to the cutoff to be reported as positive. The concentrationat which the screening test can detect an individual drug or metabolite varies.The absence of expected drug(s) and/or drug metabolite(s) may indicate non-compliance,inappropriate timing of specimen collection relative to drug administration, poor drugabsorption, diluted/adulterated urine, or limitations of testing. For medical purposesonly; not valid for forensic use.Interpretive questions should be directed to the laboratory medical directors. Result Comment: CUTO FF LEVEL: 200 NG/ML Performed By: #### D RUG3 ####ANDI CHAUDHARY L ([id number])[facility] ([facility])[address] [place] [address] Benzoylecgonine Screen Ql (U) Negative Normal Presumptive Negative [facility] Comment on above: Order Comment: Drug screen results are presumptive and should not be used to assesscompliance with prescribed medication. Contact the performing [facility] laboratoryto add-on definitive confirmatory testing if clinically indicated.Toxicology screening results are reported qualitatively. The concentration must???be greater than or equal to the cutoff to be reported as positive. The concentrationat which the screening test can detect an individual drug or metabolite varies.The absence of expected drug(s) and/or drug metabolite(s) may indicate non-compliance,inappropriate timing of specimen collection relative to drug administration, poor drugabsorption, diluted/adulterated urine, or limitations of testing. For medical purposesonly; not valid for forensic use.Interpretive questions should be directed to the laboratory medical directors. Result Comment: CUTO FF LEVEL: 150 NG/ML Performed By: #### D RUG3 ####ANDI SCHMOTZER L ([id number])[facility] ([facility])[address] [place] [address] Cannabinoids Screen Ql (U) Negative Normal Presumptive Negative [facility] Comment on above: Order Comment: Drug screen results are presumptive and should not be used to assesscompliance with prescribed medication. Contact the performing [facility] laboratoryto add-on definitive confirmatory testing if clinically indicated.Toxicology screening results are reported qualitatively. The concentration must???be greater than or equal to the cutoff to be reported as positive. The concentrationat which the screening test can detect an individual drug or metabolite varies.The absence of expected drug(s) and/or drug metabolite(s) may indicate non-compliance,inappropriate timing of specimen collection relative to drug administration, poor drugabsorption, diluted/adulterated urine, or limitations of testing. For medical purposesonly; not valid for forensic use.Interpretive questions should be directed to the laboratory medical directors. Result Comment: CUTO FF LEVEL: 50 NG/ML Performed By: #### D RUG3 ####ANDI SCHMOTZER L ([id number])[facility] ([facility])[address] [place], [place] [id number] fentaNYL+Norfentanyl Screen Ql (U) Negative Normal Presumptive Negative [facility] Comment on above: Order Comment: Drug screen results are presumptive and should not be used to assesscompliance with prescribed medication. Contact the performing [facility] laboratoryto add-on definitive confirmatory testing if clinically indicated.Toxicology screening results are reported qualitatively. The concentration must???be greater than or equal to the cutoff to be reported as positive. The concentrationat which the screening test can detect an individual drug or metabolite varies.The absence of expected drug(s) and/or drug metabolite(s) may indicate non-compliance,inappropriate timing of specimen collection relative to drug administration, poor drugabsorption, diluted/adulterated urine, or limitations of testing. For medical purposesonly; not valid for forensic use.Interpretive questions should be directed to the laboratory medical directors. Result Comment: CUTO FF LEVEL: 5 NG/ML Performed By: #### D RUG3 ####ANDI Cotter ([id number])[facility] ([facility])[address] [place], [place] [id number] Opiates Screen Ql (U) Positive Abnormal Presum ptive Negative [facility] Comment on above: Order Comment: Drug screen results are presumptive and should not be used to assesscompliance with prescribed medication. Contact the performing [facility] laboratoryto add-on definitive confirmatory testing if clinically indicated.Toxicology screening results are reported qualitatively. The concentration must???be greater than or equal to the cutoff to be reported as positive. The concentrationat which the screening test can detect an individual drug or metabolite varies.The absence of expected drug(s) and/or drug metabolite(s) may indicate non-compliance,inappropriate timing of specimen collection relative to drug administration, poor drugabsorption, diluted/adulterated urine, or limitations of testing. For medical purposesonly; not valid for forensic use.Interpretive questions should be directed to the laboratory medical directors. Result Comment: CUTO FF LEVEL: 300 NG/MLThe opiate screen does not detect fentanyl, meperidine, ortramadol. Oxycodone is not consistently detected (refer toOxycodone Screen, Urine result). Performed By: #### D RUG3 ####ANDI Cotter ([id number])[facility] ([facility])[address] [place] [address] oxyCODONE+oxyMORphone Screen Ql (U) Negative Normal Presumptive Negative [facility] Comment on above: Order Comment: Drug screen results are presumptive and should not be used to assesscompliance with prescribed medication. Contact the performing [facility] laboratoryto add-on definitive confirmatory testing if clinically indicated.Toxicology screening results are reported qualitatively. The concentration must???be greater than or equal to the cutoff to be reported as positive. The concentrationat which the screening test can detect an individual drug or metabolite varies.The absence of expected drug(s) and/or drug metabolite(s) may indicate non-compliance,inappropriate timing of specimen collection relative to drug administration, poor drugabsorption, diluted/adulterated urine, or limitations of testing. For medical purposesonly; not valid for forensic use.Interpretive questions should be directed to the laboratory medical directors. Result Comment: CUTO FF LEVEL: 100 NG/MLThis test will accurately detect both oxycodone and oxymorphone. Performed By: #### Mariaa RUG3 ####ANDI Cotter ([id number])[facility] ([facility])[address] [place] [address] Phencyclidine Ql (U) Negative Normal Presump tive Negative [facility] Comment on above: Order Comment: Drug screen results are presumptive and should not be used to assesscompliance with prescribed medication. Contact the performing [facility] laboratoryto add-on definitive confirmatory testing if clinically indicated.Toxicology screening results are reported qualitatively. The concentration must???be greater than or equal to the cutoff to be reported as positive. The concentrationat which the screening test can detect an individual drug or metabolite varies.The absence of expected drug(s) and/or drug metabolite(s) may indicate non-compliance,inappropriate timing of specimen collection relative to drug administration, poor drugabsorption, diluted/adulterated urine, or limitations of testing. For medical purposesonly; not valid for forensic use.Interpretive questions should be directed to the laboratory medical directors. Result Comment: CUTO FF LEVEL: 25 NG/MLCross-reactivity has been reported with dextromethorphan. Performed By: #### Mariaa RUG3 ####ANDI Cotter ([id number])[facility] ([facility])[address] [place] [address] Drug Screen, Urineon 024 Amphetamines Screen Ql (U) Negative Presumptive Negative [facility] Comment on above: CUTOFF LEVEL: 500 NG /ML Cross-reactivity has been reported with high concentrations of the following drugs: buproprion, chloroquine, chlorpromazine, ephedrine, mephentermine, fenfluramine, phentermine, phenylpropanolamine, pseudoephedrine, and propranolol. Barbiturates Screen Ql (U) Negative Presumptive Negative [facility] Comment on above: CUTOFF LEVEL: 200 NG /ML Benzodiazepines Ql (U) Negative Presumptive Negative [facility] Comment on above: CUTOFF LEVEL: 200 NG /ML Benzoylecgonine Screen Ql (U) Negative Presumptive Negative [facility] Comment on above: CUTOFF LEVEL: 150 NG /ML Cannabinoids Screen Ql (U) Negative Presumptive Negative [facility] Comment on above: CUTOFF LEVEL: 50 NG/ ML fentaNYL+Norfentanyl Screen Ql (U) Negative Presumptive Negative [facility] Comment on above: CUTOFF LEVEL: 5 NG/M L Interpretation and review of laboratory results Abnormal [facility] Opiates Screen Ql (U) Positive Abnormal Presum ptive Negative [facility] Comment on above: CUTOFF LEVEL: 300 NG /ML The opiate screen does not detect fentanyl, meperidine, or tramadol. Oxycodone is not consistently detected (refer to Oxycodone Screen, Urine result). oxyCODONE+oxyMORphone Screen Ql (U) Negative Presumptive Negative [facility] Comment on above: CUTOFF LEVEL: 100 NG /ML This test will accurately detect both oxycodone and oxymorphone. Phencyclidine Ql (U) Negative Presump tive Negative [facility] Comment on above: CUTOFF LEVEL: 25 NG/ ML Cross-reactivity has been reported with dextromethorphan. Drug screen results are presumptive and should not be used to assess compliance with prescribed medication. Contact the performing [facility] laboratory to add-on definitive confirmatory testing if clinically indicated. Toxicology screening results are reported qualitatively. The concentration must be greater than or equal to the cutoff to be reported as positive. The concentration at which the screening test can detect an individual drug or metabolite varies. The absence of expected drug(s) and/or drug metabolite(s) may indicate non-compliance, inappropriate timing of specimen collection relative to drug administration, poor drug absorption, diluted/adulterated urine, or limitations of testing. For medical purposes only; not valid for forensic use. Interpretive questions should be directed to the laboratory medical directors. [facility] Glucose Test strip manual (B ld) [Mass/Vol]on 11-11-2023 Glucose [Mass/Vol] 231 mg/dL High 74 - 99 mg/dL [facility] Interpretation and review of laboratory results Abnormal [facility] Glucose [Mass/Vol] 231 mg/dL High 74-99 [facility] Comment on above: Performed By: #### 2 341-6 ####ANDI Cotter ([id number])[facility] ([facility])[address] [place] [address] Glucose [Mass/Vol] 188 mg/dL High 74 - 99 mg/dL [facility] Interpretation and review of laboratory results Abnormal [facility] Glucose [Mass/Vol] 188 mg/dL High 74-99 [facility] Comment on above: Performed By: #### 2 341-6 ####ANDI Cotter ([id number])[facility] ([facility])[address] [place] [address]184 Glucose [Mass/Vol] 244 mg/dL High 74 - 99 mg/dL [facility] Interpretation and review of laboratory results Abnormal [facility] Glucose [Mass/Vol] 244 mg/dL High 74-99 [facility] Comment on above: Performed By: #### 2 341-6 ####ANDI Cotter ([id number])[facility] ([facility])[address] [place] [address] 12748 Glucose [Mass/Vol] 179 mg/dL High 74 - 99 mg/dL [facility] Interpretation and review of laboratory results Abnormal [facility] Glucose [Mass/Vol] 179 mg/dL High 74-99 [facility] Comment on above: Performed By: #### 2 341-6 ####ANDI Cotter ([id number])[facility] ([facility])[address] [place] [address] Glucose [Mass/Vol] 158 mg/dL High 74 - 99 mg/dL [facility] Interpretation and review of laboratory results Abnormal [facility] Glucose [Mass/Vol] 158 mg/dL High 74-99 [facility] Comment on above: Performed By: #### 2 341-6 ####ANDI Cotter ([id number])[facility] ([facility])[address] [place] [address] Glucose [Mass/Vol] 154 mg/dL High 74 - 99 mg/dL [facility] Interpretation and review of laboratory results Abnormal [facility] Glucose [Mass/Vol] 154 mg/dL High 74-99 [facility] Comment on above: Performed By: #### 2 341-6 ####ANDI Cotter ([id number])[facility] ([facility])[address] [place] [address] Heparin Assay, UFHon 024 Heparin unfractionated Chromogenic method Qn (PPP) 0.2 See Comment Below for Therapeutic Ranges IU/mL [facility] Heparin unfractionated Chrom ogenic method Qn (PPP)on 11-11-2023 Interpretation and review of laboratory results Normal [facility] The therapeutic reference range for UFH may be either 0.3-0.6 IU/mL or 0.3-0.7 IU/mL based on the clinical setting for anticoagulant therapy and the associated nomogram used. For Heparin dosing guidelines based on clinical scenario and Heparin Assay results, please refer to local Pharmacy and the [facility] Guidelines for Anticoagulation Therapy available on the [facility] intranet at: [email or web address]_[email or web address] [facility] Heparin.unfractionatedon Heparin unfractionated Chromogenic method Qn (PPP) 0.2 IU/mL Normal See Comment Below for Therapeutic Ranges [facility] Comment on above: Order Comment: Obtai n 4 hours after any Heparin dosage change. Nursing to release order.The therapeutic reference range for UFH may be either 0.3-0.6 IU/mL or 0.3-0.7 IU/mL based on the clinical setting for anticoagulant therapy and the associated nomogram used. For Heparin dosing guidelines based on clinical scenario and Heparin Assay results, please refer to local Pharmacy and the [facility] Guidelines for Anticoagulation Therapy available on the [facility] intranet at: [email or web address]_for_[email or web address] Performed By: #### 3 274-8 ####ANDI Cotter ([id number])[facility] ([facility])[address] [place] [address] Heparin unfractionated Chromogenic method Qn (PPP) 0.2 IU/mL Normal See Comment Below for Therapeutic Ranges [facility] Comment on above: Order Comment: Obtai n 4 hours after initiation of heparin infusion. Nursing to release order.The therapeutic reference range for UFH may be either 0.3-0.6 IU/mL or 0.3-0.7 IU/mL based on the clinical setting for anticoagulant therapy and the associated nomogram used. For Heparin dosing guidelines based on clinical scenario and Heparin Assay results, please refer to local Pharmacy and the [facility] Guidelines for Anticoagulation Therapy available on the [facility] intranet at: [email or web address] Performed By: #### 3 274-8 ####ANDI Cotter ([id number])[facility] ([facility])[address] [place], [place] [id number] No Panel Informationon 11-11 [facility] PT Coag (PPP) [Time]on 11-11 INR Coag (PPP) [Relative time] 1.2 {INR} High 0.9 - 1.1 [facility] Interpretation and review of laboratory results Abnormal [facility] INR Coag (PPP) [Relative time] 1.2 High 0.9-1.1 [facility] Comment on above: Order Comment: If nawaf earl has not had PT + INR in the last 24 hours. Nursing to release order. Performed By: #### 5 902-2 ####ANDI Cotter ([id number])[facility] ([facility])[id number] [place] [address] Protime-INRon 11-11-2023 PT Coag (PPP) [Time] 13.6 s [facility] aPTT - baselineon 11-11-2023 aPTT Coag (PPP) [Time] 29 s [facility] aPTT Coag (PPP) [Time]on Interpretation and review of laboratory results Normal [facility] The APTT is no longe r used for monitoring Unfractionated Heparin Therapy. For monitoring Heparin Therapy, use the Heparin Assay. [facility] Blood Gas Lactic Acid, Venou sOrdered By: Yamilex Leung on 11-10-2023 Lactate (BldV) [Moles/Vol] 2.0 mmol/L 0.4 - 2.0 mmol/L [facility] CBC W Auto Differential pane l (Bld)on 11-10-2023 Basophils (Bld) [#/Vol] 0.07 10*3/uL [facility] Basophils/100 WBC (Bld) 0.6 % 0.0 - 2.0 % [facility] Eosinophils (Bld) [#/Vol] 0.17 10*3/uL [facility] Eosinophils/100 WBC (Bld) 1.5 % 0.0 - 6.0 % [facility] Erythrocyte distribution width (RBC) [Ratio] 14.1 % 11.5 - 14.5 % [facility] Hematocrit (Bld) [Volume fraction] 39.5 % 36.0 - 46.0 % [facility] Hemoglobin (Bld) [Mass/Vol] 13.1 g/dL 12.0 - 16.0 g/dL [facility] Immature granulocytes (Bld) [#/Vol] 0.06 10*3/uL [facility] Immature granulocytes/100 WBC (Bld) 0.5 % 0.0 - 0.9 % [facility] Comment on above: Immature Granulocyte Count (IG) includes promyelocytes, myelocytes and metamyelocytes but does not include bands. Percent differential counts (%) should be interpreted in the context of the absolute cell counts (cells/UL). Interpretation and review of laboratory results Abnormal [facility] Lymphocytes (Bld) [#/Vol] 1.66 10*3/uL [facility] Lymphocytes/100 WBC (Bld) 14.8 % 13.0 - 44.0 % [facility] MCH (RBC) [Entitic mass] 28.7 pg 26.0 - 34.0 pg [facility] MCHC (RBC) [Mass/Vol] 33.2 g/dL 32.0 - 36.0 g/dL [facility] MCV (RBC) [Entitic vol] 86 fL 80 - 100 fL [facility] Monocytes (Bld) [#/Vol] 0.70 10*3/uL [facility] Monocytes/100 WBC (Bld) 6.2 % 2.0 - 10.0 % [facility] Neutrophils (Bld) [#/Vol] 8.57 10*3/uL High [facility] Comment on above: Percent differential counts (%) should be interpreted in the context of the absolute cell counts (cells/uL). Neutrophils/100 WBC (Bld) 76.4 % 40.0 - 80.0 % [facility] Nucleated RBC/100 WBC (Bld) [Ratio] 0.0 % [facility] Platelets (Bld) [#/Vol] 298 10*3/uL [facility] RBC (Bld) [#/Vol] 4.57 10*6/uL [facility] WBC (Bld) [#/Vol] 11.2 10*3/uL [facility] Basophils (Bld) [#/Vol] 0.07 x10*3/uL Normal 0.00-0.10 [facility] Comment on above: Performed By: #### 5 7021-8 ####ANDI Cotter ([id number])[facility] ([facility])[address] [place] [address] Basophils/100 WBC (Bld) 0.6 % Normal 0.0-2.0 [facility] Comment on above: Performed By: #### 5 7021-8 ####ANDI Cotter ([id number])[facility] ([facility])[address] [place] [address] Eosinophils (Bld) [#/Vol] 0.17 x10*3/uL Normal 0.00-0.70 [facility] Comment on above: Performed By: #### 5 7021-8 ####ANDI Cotter ([id number])[facility] ([facility])[id number] [place] [address] Eosinophils/100 WBC (Bld) 1.5 % Normal 0.0-6.0 [facility] Comment on above: Performed By: #### 5 7021-8 ####ANDI Cotter ([id number])[facility] ([facility])[id number] [place] [address] Erythrocyte distribution width (RBC) [Ratio] 14.1 % Normal 11.5-14.5 [facility] Comment on above: Performed By: #### 5 7021-8 ####ANDI Cotter ([id number])[facility] ([facility])[address] [place] [address] Hematocrit (Bld) [Volume fraction] 39.5 % Normal 36.0-46.0 [facility] Comment on above: Performed By: #### 5 7021-8 ####ANDI Cotter ([id number])[facility] ([facility])[id number] [place] [address] Hemoglobin (Bld) [Mass/Vol] 13.1 g/dL Normal 12.0-16.0 [facility] Comment on above: Performed By: #### 5 7021-8 ####ANDI Cotter ([id number])[facility] ([facility])[id number] [place] [address] Immature granulocytes (Bld) [#/Vol] 0.06 x10*3/uL Normal 0.00-0.70 [facility] Comment on above: Performed By: #### 5 7021-8 ####ANDI CHAUDHARY L ([id number])[facility] ([facility])[address] [place] [address] Immature granulocytes/100 WBC (Bld) 0.5 % Normal 0.0-0.9 [facility] Comment on above: Result Comment: Debbie ture Granulocyte Count (IG) includes promyelocytes, myelocytes and metamyelocytes but does not include bands. Percent differential counts (%) should be interpreted in the context of the absolute cell counts (cells/UL). Performed By: #### 5 7021-8 ####ANDI Cotter ([id number])[facility] ([facility])[address] [place] [address] Lymphocytes (Bld) [#/Vol] 1.66 x10*3/uL Normal 1.20-4.80 [facility] Comment on above: Performed By: #### 5 7021-8 ####ANDI Cotter ([id number])[facility] ([facility])[address] [place] [address] Lymphocytes/100 WBC (Bld) 14.8 % Normal 13.0-44.0 [facility] Comment on above: Performed By: #### 5 7021-8 ####ANDI Cotter ([id number])[facility] ([facility])[address] [place] [address] MCH (RBC) [Entitic mass] 28.7 pg Normal 26.0-34.0 [facility] Comment on above: Performed By: #### 5 7021-8 ####ANDI Cotter ([id number])[facility] ([facility])[address] [place] [address] MCHC (RBC) [Mass/Vol] 33.2 g/dL Normal 32.0-36.0 [facility] Comment on above: Performed By: #### 5 7021-8 ####ANDI Cotter ([id number])[facility] ([facility])[address] [place] [address] MCV (RBC) [Entitic vol] 86 fL Normal 80-100 [facility] Comment on above: Performed By: #### 5 7021-8 ####ANDI Cotter ([id number])[facility] ([facility])[address] [place] [address] Monocytes (Bld) [#/Vol] 0.70 x10*3/uL Normal 0.10-1.00 [facility] Comment on above: Performed By: #### 5 7021-8 ####ANDI Cotter ([id number])[facility] ([facility])[address] [place] [address] Monocytes/100 WBC (Bld) 6.2 % Normal 2.0-10.0 [facility] Comment on above: Performed By: #### 5 7021-8 ####ANDI Cotter ([id number])[facility] ([facility])[address] [place] [address] Neutrophils (Bld) [#/Vol] 8.57 x10*3/uL High 1.20-7.70 [facility] Comment on above: Result Comment: Perc ent differential counts (%) should be interpreted in the context of the absolute cell counts (cells/uL). Performed By: #### 5 7021-8 ####ANDI Cotter ([id number])[facility] ([facility])[address] [place] [address] Neutrophils/100 WBC (Bld) 76.4 % Normal 40.0-80.0 [facility] Comment on above: Performed By: #### 5 7021-8 ####ANDI Cotter ([id number])[facility] ([facility])[id number] [place] [address] Nucleated RBC/100 WBC (Bld) [Ratio] 0.0 /100 WBCs Normal 0.0-0.0 [facility] Comment on above: Performed By: #### 5 7021-8 ####ANDI Cotter ([id number])[facility] ([facility])[address] [place] [address] Platelets (Bld) [#/Vol] 298 x10*3/uL Normal 150-450 [facility] Comment on above: Performed By: #### 5 7021-8 ####ANDI Cotter ([id number])[facility] ([facility])[address] [place] [address] RBC (Bld) [#/Vol] 4.57 x10*6/uL Normal 4.00-5.20 [facility] Comment on above: Performed By: #### 5 7021-8 ####ANDI Cotter ([id number])[facility] ([facility])[address] [place] [address] WBC (Bld) [#/Vol] 11.2 x10*3/uL Normal 4.4-11.3 [facility] Comment on above: Performed By: #### 5 7021-8 ####ANDI RENEEER L ([id number])[facility] ([facility])[address] [place] [address] CT ABDOMEN PELVIS W IV CONTR Reny 11-10-2023 CT ABDOMEN PELVIS W IV CONTRAST Normal [facility] CT Abdomen and Pelvis W cont rast Prashant 11-10-2023 1. Similar size and morphology of large loculated pancreatic pseudocyst centered within the pancreatic head and uncinate process when compared to MRCP from 11/09/2023 but enlarged when compared to prior CT of the abdomen and pelvis from 06/15/2023 as described in detail above. 2. Vague fat stranding and mesenteric edema surrounds the pancreatic head and uncinate process which may represent component of acute on chronic pancreatitis. 3. Minimal ductal dilatation in the pancreatic tail similar to recent MRCP. 4. Hepatic steatosis and hepatomegaly. 5. Additional findings as above. I personally reviewed the images/study and I agree with the findings as stated above by resident physician, Dr. Nancy Garrido. The study was interpreted at [facility] in [facility]. MACRO: none Signed by: Marie Fisher 11/10/2023 10:20 PM Dictation workstation: [id number] MMODAL Interpreted By: Marie Fisher and Liller Gregory STUDY: CT ABDOMEN PELVIS W IV CONTRAST; 11/10/2023 8:52 pm INDICATION: Signs/Symptoms:pancreat itis, pseudocyst. 39-year-old female with history of pancreatitis, necrotizing pancreatitis and pseudocyst presents to ED for pseudocyst and epigastric pain. Patient had MRCP yesterday and started having intense epigastric pain today. COMPARISON: CT abdomen pelvis 07/05/2023, MRCP 11/09/2023 ACCESSION NUMBER(S): [id number] ORDERING CLINICIAN: KHURRAM STUART TECHNIQUE: CT of the abdomen and pelvis was performed. Standard contiguous axial images were obtained at 3 mm slice thickness through the abdomen and pelvis. Coronal and sagittal reconstructions at 3 mm slice thickness were performed. 80 ml of contrast Omnipaque 350 were administered intravenously without immediate complication. FINDINGS: LOWER CHEST: The visualized lung base is unremarkable. The heart is mildly enlarged without pericardial effusion. No pleural effusion is present. The distal esophagus is fluid-filled without significant esophageal wall thickening. Lead partially imaged extending into the proximal right atrium. ABDOMEN: LIVER: Redemonstration of hepatomegaly and hepatic steatosis. Focal fatty infiltration is noted along the falciform ligament. Lesion in segment 8 of the liver better delineated on recent MRI. No suspicious hepatic lesions are identified. BILE DUCTS: Bile ducts are mildly prominent which is likely sequela of reservoir effect status post cholecystectomy. GALLBLADDER: Surgically absent. PANCREAS: Redemonstration of diffuse atrophy and fatty infiltration of the pancreas with interval enlargement of the previously noted pancreatic pseudocyst when compared to prior CT of the abdomen and pelvis from 07/05/2023 and similar to MRCP from 11/09/2023 which measures up to 12 x 11 x 5.8 cm (series 201, image 57 and series 203, image 55). Previously measuring up to 7.3 x 4.[address]. A 2nd peripancreatic pseudocyst is noted extending superiorly and abutting the caudate lobe measuring 2.7 x 2.3 cm which is new when compared to prior exam and may represent extension of the large dominant pseudocyst superiorly. There is mild fat stranding surrounding the pancreatic head and uncinate process which may represent component of acute on chronic pancreatitis. There is mild ductal dilatation of the distal pancreatic duct measuring up to 5 mm in the tail, similar to prior imaging. SPLEEN: The spleen is normal in size without focal lesions. ADRENAL GLANDS: Bilateral adrenal glands appear normal. KIDNEYS AND URETERS: The kidneys are normal in size and enhance symmetrically. No hydroureteronephrosis or nephroureterolithiasis is identified. PELVIS: BLADDER: The urinary bladder appears normal without abnormal wall thickening. REPRODUCTIVE ORGANS: No pelvic masses. BOWEL: The stomach is unremarkable. The small and large bowel are normal in caliber and demonstrate no wall thickening. The appendix appears normal. VESSELS: There is no aneurysmal dilatation of the abdominal aorta. The IVC appears normal. IVC filter is similar to prior imaging. PERITONEUM/RETROPERITON EUM/LYMPH NODES: There is no free or loculated fluid collection, no free intraperitoneal air. The retroperitoneum appears normal. No abdominopelvic lymphadenopathy is present. See above for pseudocyst details. BONES AND ABDOMINAL WALL: No suspicious osseous lesions are identified. Small fat containing umbilical hernia. [facility] MMODAL Marie Fisher D O - 11/10/2023 Interpreted By: Marie Fisher and Liller Gregory STUDY: CT ABDOMEN PELVIS W IV CONTRAST; 11/10/2023 8:52 pm INDICATION: Signs/Symptoms:pancreat itis, pseudocyst. 39-year-old female with history of pancreatitis, necrotizing pancreatitis and pseudocyst presents to ED for pseudocyst and epigastric pain. Patient had MRCP yesterday and started having intense epigastric pain today. COMPARISON: CT abdomen pelvis 07/05/2023, MRCP 11/09/2023 ACCESSION NUMBER(S): [id number] ORDERING CLINICIAN: KHURRAM STUART TECHNIQUE: CT of the abdomen and pelvis was performed. Standard contiguous axial images were obtained at 3 mm slice thickness through the abdomen and pelvis. Coronal and sagittal reconstructions at 3 mm slice thickness were performed. 80 ml of contrast Omnipaque 350 were administered intravenously without immediate complication. FINDINGS: LOWER CHEST: The visualized lung base is unremarkable. The heart is mildly enlarged without pericardial effusion. No pleural effusion is present. The distal esophagus is fluid-filled without significant esophageal wall thickening. Lead partially imaged extending into the proximal right atrium. ABDOMEN: LIVER: Redemonstration of hepatomegaly and hepatic steatosis. Focal fatty infiltration is noted along the falciform ligament. Lesion in segment 8 of the liver better delineated on recent MRI. No suspicious hepatic lesions are identified. BILE DUCTS: Bile ducts are mildly prominent which is likely sequela of reservoir effect status post cholecystectomy. GALLBLADDER: Surgically absent. PANCREAS: Redemonstration of diffuse atrophy and fatty infiltration of the pancreas with interval enlargement of the previously noted pancreatic pseudocyst when compared to prior CT of the abdomen and pelvis from 07/05/2023 and similar to MRCP from 11/09/2023 which measures up to 12 x 11 x 5.8 cm (series 201, image 57 and series 203, image 55). Previously measuring up to 7.3 x 4.[address]. A 2nd peripancreatic pseudocyst is noted extending superiorly and abutting the caudate lobe measuring 2.7 x 2.3 cm which is new when compared to prior exam and may represent extension of the large dominant pseudocyst superiorly. There is mild fat stranding surrounding the pancreatic head and uncinate process which may represent component of acute on chronic pancreatitis. There is mild ductal dilatation of the distal pancreatic duct measuring up to 5 mm in the tail, similar to prior imaging. SPLEEN: The spleen is normal in size without focal lesions. ADRENAL GLANDS: Bilateral adrenal glands appear normal. KIDNEYS AND URETERS: The kidneys are normal in size and enhance symmetrically. No hydroureteronephrosis or nephroureterolithiasis is identified. PELVIS: BLADDER: The urinary bladder appears normal without abnormal wall thickening. REPRODUCTIVE ORGANS: No pelvic masses. BOWEL: The stomach is unremarkable. The small and large bowel are normal in caliber and demonstrate no wall thickening. The appendix appears normal. VESSELS: There is no aneurysmal dilatation of the abdominal aorta. The IVC appears normal. IVC filter is similar to prior imaging. PERITONEUM/RETROPERITON EUM/LYMPH NODES: There is no free or loculated fluid collection, no free intraperitoneal air. The retroperitoneum appears normal. No abdominopelvic lymphadenopathy is present. See above for pseudocyst details. BONES AND ABDOMINAL WALL: No suspicious osseous lesions are identified. Small fat containing umbilical hernia. IMPRESSION: 1. Similar size and morphology of large loculated pancreatic pseudocyst centered within the pancreatic head and uncinate process when compared to MRCP from 11/09/2023 but enlarged when compared to prior CT of the abdomen and pelvis from 06/15/2023 as described in detail above. 2. Vague fat stranding and mesenteric edema surrounds the pancreatic head and uncinate process which may represent component of acute on chronic pancreatitis. 3. Minimal ductal dilatation in the pancreatic tail similar to recent MRCP. 4. Hepatic steatosis and hepatomegaly. 5. Additional findings as above. I personally reviewed the images/study and I agree with the findings as stated above by resident physician, Dr. Nancy Garrido. The study was interpreted at [facility] in [facility]. MACRO: none Signed by: Marie Fisher 11/10/2023 10:20 PM Dictation workstation: [id number] [facility] Work Phone: Radiology Study observation (narrative) [facility] Work Phone: CT Abdomen and Pelvis W cont rast IVOrdered By: Marie Fisher on 11-10-2023 [facility] Work Phone: Comprehensive metabolic 2000 panelon 11-10-2023 Albumin BCP dye [Mass/Vol] 4.3 g/dL 3.4 - 5.0 g/dL [facility] ALP [Catalytic activity/Vol] 79 U/L 33 - 110 U/L [facility] ALT With P-5'-P [Catalytic activity/Vol] 72 U/L High 7 - 45 U/L [facility] Comment on above: Patients treated wit h Sulfasalazine may generate falsely decreased results for ALT. Anion gap [Moles/Vol] 19 mmol/L 10 - 2 0 mmol/L [facility] AST With P-5'-P [Catalytic activity/Vol] 51 U/L High 9 - 39 U/L [facility] Bilirubin [Mass/Vol] 0.4 mg/dL 0.0 - 1 .2 mg/dL [facility] Calcium [Mass/Vol] 9.7 mg/dL 8.6 - 10. 6 mg/dL [facility] Chloride [Moles/Vol] 101 mmol/L 98 - 10 7 mmol/L [facility] CO2 [Moles/Vol] 22 mmol/L 21 - 32 mmol/L [facility] Creatinine [Mass/Vol] 0.77 mg/dL 0.50 - 1.05 mg/dL [facility] eGFR - PINF [facility] Comment on above: Calculations of estuardo mated GFR are performed using the 2020 CKD-EPI Study Refit equation without the race variable for the IDMS-Traceable creatinine methods. https://jasn.asnjournals.org/content//ASN.173620 6386 Glucose [Mass/Vol] 171 mg/dL High 74 - 99 mg/dL [facility] Interpretation and review of laboratory results Abnormal [facility] Potassium [Moles/Vol] 3.7 mmol/L 3.5 - 5.3 mmol/L [facility] Protein [Mass/Vol] 7.5 g/dL 6.4 - 8.2 g/dL [facility] Sodium [Moles/Vol] 138 mmol/L 136 - 145 mmol/L [facility] Urea nitrogen [Mass/Vol] 18 mg/dL 6 - 23 mg/dL [facility] Albumin BCP dye [Mass/Vol] 4.3 g/dL Normal 3.4-5.0 [facility] Comment on above: Performed By: #### 2 4323-8 ####ANDI Cotter ([id number])[facility] ([facility])[address] [place] [address] ALP [Catalytic activity/Vol] 79 U/L Normal 33-110 [facility] Comment on above: Performed By: #### 2 4323-8 ####ANDI Cotter ([id number])[facility] ([facility])[address] [place] [address] ALT With P-5'-P [Catalytic activity/Vol] 72 U/L High 7-45 [facility] Comment on above: Result Comment: Evelyn ents treated with Sulfasalazine may generate falsely decreased results for ALT. Performed By: #### 2 4323-8 ####ANDI Cotter ([id number])[facility] ([facility])[address] [place] [address] Anion gap [Moles/Vol] 19 mmol/L Normal 10-20 [facility] Comment on above: Performed By: #### 2 4323-8 ####ANDI Cotter ([id number])[facility] ([facility])[address] [place] [address] AST With P-5'-P [Catalytic activity/Vol] 51 U/L High 9-39 [facility] Comment on above: Performed By: #### 2 4323-8 ####ANDI Cotter ([id number])[facility] ([facility])[address] [place] [address] Bilirubin [Mass/Vol] 0.4 mg/dL Normal 0.0-1.2 [facility] Comment on above: Performed By: #### 2 4323-8 ####ANDI CHAUDHARY L ([id number])[facility] ([facility])[address] [place] [address] Calcium [Mass/Vol] 9.7 mg/dL Normal 8.6-10.6 [facility] Comment on above: Performed By: #### 2 4323-8 ####ANDI CHAUDHARY L ([id number])[facility] ([facility])[address] [place] [address] Chloride [Moles/Vol] 101 mmol/L Normal 98-107 [facility] Comment on above: Performed By: #### 2 4323-8 ####ANDI RENEEER L ([id number])[facility] ([facility])[address] [place] [address] CO2 [Moles/Vol] 22 mmol/L Normal 21-32 [facility] Comment on above: Performed By: #### 2 4323-8 ####ANDI CHAUDHARY L ([id number])[facility] ([facility])[address] [place] [address] Creatinine [Mass/Vol] 0.77 mg/dL Normal 0.50-1.05 [facility] Comment on above: Performed By: #### 2 4323-8 ####ANDI RENEEER L ([id number])[facility] ([facility])[address] [place] [address] GFR/1.73 sq M.predicted MDRD (S/P/Bld) [Vol rate/Area] mL/min/{1.73_m2} Normal >60 [facility] Comment on above: Result Comment: Calc ulations of estimated GFR are performed using the 2020 CKD-EPI Study Refit equation without the race variable for the IDMS-Traceable creatinine methods.https://danellesn.loreleijournals.org/content// N.6005912110 Performed By: #### 2 4323-8 ####ANDI Cotter ([id number])[facility] ([facility])[address] [place] [address] Glucose [Mass/Vol] 171 mg/dL High 74-99 [facility] Comment on above: Performed By: #### 2 4323-8 ####ANDI Cotter ([id number])[facility] ([facility])[address] [place] [address] Potassium [Moles/Vol] 3.7 mmol/L Normal 3.5-5.3 [facility] Comment on above: Performed By: #### 2 4323-8 ####ANDI Cotter ([id number])[facility] ([facility])[address] [place] [address] Protein [Mass/Vol] 7.5 g/dL Normal 6.4-8.2 [facility] Comment on above: Performed By: #### 2 4323-8 ####ANDI Cotter ([id number])[facility] ([facility])[address] [place] [address] Sodium [Moles/Vol] 138 mmol/L Normal 136-145 [facility] Comment on above: Performed By: #### 2 4323-8 ####ANDI CHAUDHARY L ([id number])[facility] ([facility])[address] [place] [address] Urea nitrogen [Mass/Vol] 18 mg/dL Normal 6-23 [facility] Comment on above: Performed By: #### 2 4323-8 ####ANDI CHAUDHARY L ([id number])[facility] ([facility])[id number] [place] [address] ECG 12 leadOrdered By: Zofia Young on 11-10-2023 Atrial Rate 117 BPM [facility] Work Phone: P [place] 33 degrees [facility] Work Phone: P Offset 208 ms [facility] Work Phone: P Onset 158 ms [facility] Work Phone: DC Interval 132 ms [facility] Work Phone: Q Onset 224 ms [facility] Work Phone: QRS Count 19 beats [facility] Work Phone: QRS Duration 78 ms [facility] Work Phone: QT Interval 324 ms [facility] Work Phone: QTC Calculation(Bazett) 451 ms [facility] Work Phone: QTC Fredericia 405 ms [facility] Work Phone: R [place] 34 degrees [facility] Work Phone: T [place] 32 degrees [facility] Work Phone: T Offset 386 ms [facility] Work Phone: Ventricular Rate 117 BPM [facility] Work Phone: [facility] Work Phone: ECG 12 leadon 11-10-2023 Sinus tachycardia Cannot rule out Anterior infarct , age undetermined Abnormal ECG When compared with ECG of 14-JUN-2023 21:04, Previous ECG has undetermined rhythm, needs review See ED provider note for full interpretation and clinical correlation Confirmed by Zofia Young ([id number]) on 11/10/2023 10:37:46 PM MUSE Zofia Young APRN- INVESTOR RELATIONS DIRECTOR - 11/10/2023 Sinus tachycardia Cannot rule out Anterior infarct , age undetermined Abnormal ECG When compared with ECG of 14-JUN-2023 21:04, Previous ECG has undetermined rhythm, needs review See ED provider note for full interpretation and clinical correlation Confirmed by Zofia Young ([id number]) on 11/10/2023 10:37:46 PM [facility] Work Phone: ECG 12-LEADon 11-10-2023 ECG 12-LEAD Ventricular Rate 117 Atrial Rate 117 P-R Interval 132 QRS Duration 78 Q-T Interval 324 QTC Calculation(Bazett) 451 P [place] 33 R [place] 34 T [place] 32 QRS Count 19 Q Onset 224 P Onset 158 P Offset 208 T Offset 386 QTC Fredericia 405 Diagnosis Sinus tachycardia Cannot rule out Anterior infarct , age undetermined Abnormal ECG When compared with ECG of 14-JUN-2023 21:04, Previous ECG has undetermined rhythm, needs review See ED provider note for full interpretation and clinical correlation Confirmed by Zofia Young ([id number]) on 11/10/2023 10:37:46 PM Normal [facility] Gas panel (BldV)on 4 Anion gap 4 (BldV) [Moles/Vol] 12.0 mmol/L 10.0 - 25.0 mmol/L [facility] Base excess Calc (BldV) [Moles/Vol] 2.8 mmol/L -2.0 - 3.0 mmol/L [facility] Calcium.ionized (BldV) [Moles/Vol] 1.19 mmol/L 1.10 - 1.33 mmol/L [facility] Chloride (BldV) [Moles/Vol] 102 mmol/L 98 - 107 mmol/L [facility] CO2 (BldV) [Partial pressure] 40 mm[Hg] Low [facility] Glucose [Mass/Vol] 187 mg/dL High 74 - 99 mg/dL [facility] HCO3 (Bld) [Moles/Vol] 27.2 mmol/L High 22.0 - 26.0 mmol/L [facility] Hematocrit Est (Bld) [Volume fraction] 39.0 % 36.0 - 46.0 % [facility] Hemoglobin (Bld) [Mass/Vol] 13.1 g/dL 12.0 - 16.0 g/dL [facility] Interpretation and review of laboratory results Abnormal [facility] Lactate (BldV) [Moles/Vol] 2.2 mmol/L High 0.4 - 2.0 mmol/L [facility] Oxygen (BldV) [Partial pressure] 37 mm[Hg] [facility] Oxygen saturation in Venous blood 49 % 45 - 75 % [facility] Oxyhemoglobin (BldV) [Mass fraction] 48.5 % 45.0 - 75.0 % [facility] pH (BldV) 7.44 [pH] High 7.33 - 7.43 pH [facility] Potassium (BldV) [Moles/Vol] 3.8 mmol/L 3.5 - 5.3 mmol/L [facility] Sodium (BldV) [Moles/Vol] 137 mmol/L 136 - 145 mmol/L [facility] Test Comment DOROTHEA RUTLEDGE- [id number] [facility] Anion gap 4 (BldV) [Moles/Vol] 12.0 mmol/L Normal 10.0-25.0 [facility] Comment on above: Performed By: #### 2 4339-4 ####ANDI Cotter ([id number])[facility] ([facility])[address] [place] [address] Base excess Calc (BldV) [Moles/Vol] 2.8 mmol/L Normal -2.0-3.0 [facility] Comment on above: Performed By: #### 2 4339-4 ####ANDI Cotter ([id number])[facility] ([facility])[address] [place] [address] Calcium.ionized (BldV) [Moles/Vol] 1.19 mmol/L Normal 1.10-1.33 [facility] Comment on above: Performed By: #### 2 4339-4 ####ANDI Cotter ([id number])[facility] ([facility])[id number] [place] [address] Chloride (BldV) [Moles/Vol] 102 mmol/L Normal 98-107 [facility] Comment on above: Performed By: #### 2 4339-4 ####ANDI Cotter ([id number])[facility] ([facility])[address] [place] [address] CO2 (BldV) [Partial pressure] 40 mm Hg Low 41-51 [facility] Comment on above: Performed By: #### 2 4339-4 ####ANDI Cotter ([id number])[facility] ([facility])[address] [place] [address] Glucose [Mass/Vol] 187 mg/dL High 74-99 [facility] Comment on above: Performed By: #### 2 4339-4 ####ANDI Cotter ([id number])[facility] ([facility])[address] [place] [address] HCO3 (Bld) [Moles/Vol] 27.2 mmol/L High 22.0-26.0 [facility] Comment on above: Performed By: #### 2 4339-4 ####ANDI Cotter ([id number])[facility] ([facility])[address] [place] [address] Hematocrit Est (Bld) [Volume fraction] 39.0 % Normal 36.0-46.0 [facility] Comment on above: Performed By: #### 2 4339-4 ####ANDI Cotter ([id number])[facility] ([facility])[address] [place] [address] Hemoglobin (Bld) [Mass/Vol] 13.1 g/dL Normal 12.0-16.0 [facility] Comment on above: Performed By: #### 2 4339-4 ####ANDI Cotter ([id number])[facility] ([facility])[address] [place] [address] Lactate (BldV) [Moles/Vol] 2.2 mmol/L High 0.4-2.0 [facility] Comment on above: Performed By: #### 2 4339-4 ####ANDI Cotter ([id number])[facility] ([facility])[address] [place] [address] Oxygen (BldV) [Partial pressure] 37 mm Hg Normal 35-45 [facility] Comment on above: Performed By: #### 2 4339-4 ####ANDI Cotter ([id number])[facility] ([facility])[address] [place] [address] Oxygen saturation in Venous blood 49 % Normal 45-75 [facility] Comment on above: Performed By: #### 2 4339-4 ####ANDI Cotter ([id number])[facility] ([facility])[address] [place] [address] Oxyhemoglobin (BldV) [Mass fraction] 48.5 % Normal 45.0-75.0 [facility] Comment on above: Performed By: #### 2 4339-4 ####ANDI Cotter ([id number])[facility] ([facility])[address] [place] [address] pH (BldV) 7.44 [pH] High 7.33-7.43 [facility] Comment on above: Performed By: #### 2 4339-4 ####ANDI Cotter ([id number])[facility] ([facility])[address] [place] [address] Potassium (BldV) [Moles/Vol] 3.8 mmol/L Normal 3.5-5.3 [facility] Comment on above: Performed By: #### 2 4339-4 ####ANDI Cotter ([id number])[facility] ([facility])[address] [place] [address] Sodium (BldV) [Moles/Vol] 137 mmol/L Normal 136-145 [facility] Comment on above: Performed By: #### 2 4339-4 ####ANDI Cotter ([id number])[facility] ([facility])[address] [place] [address] TEST COMMENT DOROTHEA RUTLEDGE- Normal [facility] Comment on above: Performed By: #### 2 4339-4 ####ANDI Cotter ([id number])[facility] ([facility])[id number] [place] [address] Glucose Test strip manual (B ld) [Mass/Vol]on 11-10-2023 Glucose [Mass/Vol] 165 mg/dL High 74 - 99 mg/dL [facility] Interpretation and review of laboratory results Abnormal [facility] Glucose [Mass/Vol] 165 mg/dL High 74-99 [facility] Comment on above: Performed By: #### 2 341-6 ####ANDI Cotter ([id number])[facility] ([facility])[address] [place] [address] HCG ( test) Ql (U)O rdered By: Anneliese Mckenzie on 11-10-2023 Interpretation and review of laboratory results Normal [facility] Preg Test, Ur Negative Negative [facility] HbA1c (Bld) [Mass fraction]o n 11-10-2023 Average glucose Estimated from glycated hemoglobin (Bld) [Mass/Vol] 214 mg/dL Not Established [facility] Interpretation and review of laboratory results Abnormal [facility] Diagnosis of Diabetes-Adults Non-Diabetic: < or = 5.6% Increased risk for developing diabetes: 5.7-6.4% Diagnostic of diabetes: > or = 6.5% Monitoring of Diabetes Age (y).................... ... Therapeutic Goal (%) Adults: >18.................... .....<7.0 Pediatrics: 13-18.................. .<7.5 Pediatrics: 7-12................... .<8.0 Pediatrics: 0-6.................... . 7.5-8.5 [place] [employer]. Diabetes Care 33(S1), Sep 2009 [facility] Average glucose Estimated from glycated hemoglobin (Bld) [Mass/Vol] 214 mg/dL Normal Not Established [facility] Comment on above: Order Comment: Diagn osis of Wmnpmuqo-DmacriQrp-Mcmqfvmp: < or = 5.6%Increased risk for developing diabetes: 5.7-6.4%Diagnostic of diabetes: > or = 6.5%Monitoring of DiabetesAge (y)....................... Therapeutic Goal (%)Adults: >18.........................<7.0Pediatrics: 13-18...................<7.5Pediatrics: 7-12....................<8.0Pediatrics: 0-6..................... 7.5-8.5[facility] Diabetes Association. Diabetes Care 33(S1), Sep 2009 Performed By: #### 4 548-4 ####ANDI Cotter ([id number])[facility] ([facility])[address] [place] [address] Hemoglobin A1con 11-10-2023 HbA1c (Bld) [Mass fraction] 9.1 % High see below [facility] Hemoglobin A1c/Hemoglobin.to fermín 11-10-2023 HbA1c (Bld) [Mass fraction] 9.1 % High see below [facility] Comment on above: Order Comment: Diagn osis of Fsfpklqf-YsrcezZiz-Opkibjpc: < or = 5.6%Increased risk for developing diabetes: 5.7-6.4%Diagnostic of diabetes: > or = 6.5%Monitoring of DiabetesAge (y)....................... Therapeutic Goal (%)Adults: >18.........................<7.0Pediatrics: 13-18...................<7.5Pediatrics: 7-12....................<8.0Pediatrics: 0-6..................... 7.5-8.5[facility] Diabetes Association. Diabetes Care 33(S1), Sep 2009 Performed By: #### 4 548-4 ####ADNI Cotter ([id number])[facility] ([facility])[address] [place] [address] Lactateon 11-10-2023 Lactate (BldV) [Moles/Vol] 2.0 mmol/L Normal 0.4-2.0 [facility] Comment on above: Performed By: #### 2 519-7 ####ANDI Cotter ([id number])[facility] ([facility])[address] [place] [address] Lactate (BldV) [Moles/Vol]Or dered By: Yamilex Leung on 11-10-2023 Interpretation and review of laboratory results Normal [facility] Lipaseon 11-10-2023 Lipase [Catalytic activity/Vol] 104 U/L High 9 - 82 U/L [facility] Lipase [Catalytic activity/V ol]on 11-10-2023 Interpretation and review of laboratory results Abnormal [facility] Venipuncture immediately after or during the administration of Metamizole may lead to falsely low results. Testing should be performed immediately prior to Metamizole dosing. [facility] Triacylglycerol lipaseon Lipase [Catalytic activity/Vol] 104 U/L High 9-82 [facility] Comment on above: Order Comment: Venip uncture immediately after or during the administration of Metamizole may lead to falsely low results. Testing should be performed immediately prior to Metamizole dosing. Performed By: #### 3 040-3 ####ANDI Cotter ([id number])[facility] ([facility])[address] [place] [address] MR Pancreas WO and W contras t Prashant 11-09-2023 Increase in size of pancreatic cyst involving the head/body, suggestive of a pseudocyst in a patient with prior pancreatitis. There is main pancreatic ductal dilatation in the tail likely postobstructive in nature, with parenchymal atrophy. Hepatomegaly and hepatic steatosis. Stable subcentimeter enhancing lesion segment VIII of the liver. Signed by: Shelli Paris 11/09/2023 3:51 PM Dictation workstation: [id number] MMODAL Interpreted By: Shelli Paris, STUDY: MRCP PANCREAS W AND WO IV CONTRAST; 11/09/2023 12:20 pm INDICATION: Signs/Symptoms:severe pancreatitis and cyst. evaluate for ductal problems and size of size. COMPARISON: CT dated 07/05/2023 ACCESSION NUMBER(S): [id number] ORDERING CLINICIAN: COLTON HICKS TECHNIQUE: Multiplanar multisequence T1 and T2 weighted images through the abdomen. 20 ml of Gadolinium contrast agent Dotarem were administered intravenously without immediate complication. FINDINGS: Lower Chest: Clear. Liver: Hepatomegaly, liver measures 24 cm craniocaudally. Diffuse severe hepatic steatosis. There is a 9 mm enhancing lesion in segment VIII, which is stable from prior exam. Gallbladder and Biliary: Status post cholecystectomy. Dilated CBD measuring 12 mm. Pancreas: Pancreatic cystic lesion in the head and body measuring 10 x 6.4 cm, increased in size from prior exam where it measured 4.6 x 7.3 cm. Dilated main duct in the tail measuring 5 mm. Atrophic pancreatic tail. Spleen: No abnormality identified in the spleen. Adrenals: No abnormality identified in either adrenal gland. Urinary: No parenchymal abnormality identified in either kidney. No hydronephrosis. Gastrointestinal/Perito neum: No small or large bowel obstruction in the visualized abdomen. In the abdomen, there is no extraluminal air. No significant free fluid. Vascular: Abdominal aorta is normal in caliber. Susceptibility artifact medial to the right kidney suggestive of embolization coils. Lymphatics: No enlarged lymph nodes by size criteria. MSK/Body Wall: No aggressive bony lesion identified. Small fat containing umbilical hernia. MMODAL Shelli Paris MD - 11/09/2023 Interpreted By: Shelli Paris, STUDY: MRCP PANCREAS W AND WO IV CONTRAST; 11/09/2023 12:20 pm INDICATION: Signs/Symptoms:severe pancreatitis and cyst. evaluate for ductal problems and size of size. COMPARISON: CT dated 07/05/2023 ACCESSION NUMBER(S): [id number] ORDERING CLINICIAN: COLTON HICKS TECHNIQUE: Multiplanar multisequence T1 and T2 weighted images through the abdomen. 20 ml of Gadolinium contrast agent Dotarem were administered intravenously without immediate complication. FINDINGS: Lower Chest: Clear. Liver: Hepatomegaly, liver measures 24 cm craniocaudally. Diffuse severe hepatic steatosis. There is a 9 mm enhancing lesion in segment VIII, which is stable from prior exam. Gallbladder and Biliary: Status post cholecystectomy. Dilated CBD measuring 12 mm. Pancreas: Pancreatic cystic lesion in the head and body measuring 10 x 6.4 cm, increased in size from prior exam where it measured 4.6 x 7.3 cm. Dilated main duct in the tail measuring 5 mm. Atrophic pancreatic tail. Spleen: No abnormality identified in the spleen. Adrenals: No abnormality identified in either adrenal gland. Urinary: No parenchymal abnormality identified in either kidney. No hydronephrosis. Gastrointestinal/Perito neum: No small or large bowel obstruction in the visualized abdomen. In the abdomen, there is no extraluminal air. No significant free fluid. Vascular: Abdominal aorta is normal in caliber. Susceptibility artifact medial to the right kidney suggestive of embolization coils. Lymphatics: No enlarged lymph nodes by size criteria. MSK/Body Wall: No aggressive bony lesion identified. Small fat containing umbilical hernia. IMPRESSION: Increase in size of pancreatic cyst involving the head/body, suggestive of a pseudocyst in a patient with prior pancreatitis. There is main pancreatic ductal dilatation in the tail likely postobstructive in nature, with parenchymal atrophy. Hepatomegaly and hepatic steatosis. Stable subcentimeter enhancing lesion segment VIII of the liver. Signed by: Shelli Paris 11/09/2023 3:51 PM Dictation workstation: [id number] [facility] Work Phone: Radiology Study observation (narrative) [facility] Work Phone: MR Pancreas WO and W contras t IVOrdered By: Shelli Paris on 11-09-2023 [facility] Work Phone: MRCP PANCREAS W AND WO IV CO NTRASTon 11-09-2023 MRCP PANCREAS W AND WO IV CONTRAST Interpreted By: Shelli Paris, STUDY: MRCP PANCREAS W AND WO IV CONTRAST; 11/09/2023 12:20 pm INDICATION: Signs/Symptoms:severe pancreatitis and cyst. evaluate for ductal problems and size of size. COMPARISON: CT dated 07/05/2023 ACCESSION NUMBER(S): [id number] ORDERING CLINICIAN: COLTON HICKS TECHNIQUE: Multiplanar multisequence T1 and T2 weighted images through the abdomen. 20 ml of Gadolinium contrast agent Dotarem were administered intravenously without immediate complication. FINDINGS: Lower Chest: Clear. Liver: Hepatomegaly, liver measures 24 cm craniocaudally. Diffuse severe hepatic steatosis. There is a 9 mm enhancing lesion in segment VIII, which is stable from prior exam. Gallbladder and Biliary: Status post cholecystectomy. Dilated CBD measuring 12 mm. Pancreas: Pancreatic cystic lesion in the head and body measuring 10 x 6.4 cm, increased in size from prior exam where it measured 4.6 x 7.3 cm. Dilated main duct in the tail measuring 5 mm. Atrophic pancreatic tail. Spleen: No abnormality identified in the spleen. Adrenals: No abnormality identified in either adrenal gland. Urinary: No parenchymal abnormality identified in either kidney. No hydronephrosis. Gastrointestinal/Perito neum: No small or large bowel obstruction in the visualized abdomen. In the abdomen, there is no extraluminal air. No significant free fluid. Vascular: Abdominal aorta is normal in caliber. Susceptibility artifact medial to the right kidney suggestive of embolization coils. Lymphatics: No enlarged lymph nodes by size criteria. MSK/Body Wall: No aggressive bony lesion identified. Small fat containing umbilical hernia. IMPRESSION: Increase in size of pancreatic cyst involving the head/body, suggestive of a pseudocyst in a patient with prior pancreatitis. There is main pancreatic ductal dilatation in the tail likely postobstructive in nature, with parenchymal atrophy. Hepatomegaly and hepatic steatosis. Stable subcentimeter enhancing lesion segment VIII of the liver. Signed by: Shelli Paris 11/09/2023 3:51 PM Dictation workstation: [id number] [facility] RF Unspecified body region V iews for central venous catheter placement checkon 10-19-2023 1. Fluoroscopically assisted removal of previously placed right internal jugular vein MediPort, which had minimally rotated in the subcutaneous tissues of the anterosuperior right chest. 2. Ultrasound and fluoroscopically guided placement of new right internal jugular vein MediPort, ready for immediate use. MACRO: None Signed by: Poncho Ruby 10/19/2023 2:35 PM Dictation workstation: [id number] [facility] Interpreted By: Poncho Sprague, STUDY: IR CVC CHECK; ; 10/18/2023 10:00 am ULTRASOUND AND FLUOROSCOPICALLY GUIDED RIGHT INTERNAL JUGULAR VEIN MEDIPORT FLUOROSCOPICALLY ASSISTED REMOVAL OF RIGHT INTERNAL JUGULAR VEIN MEDIPORT INDICATION: Signs/Symptoms:DYE STUDY/POSSIBLE EXCHANGE. 47-year-old woman requiring durable IV access for infusion therapy. Concern for rotation of her previously placed right internal jugular vein MediPort which has been in accessible by infusion center providers. COMPARISON: Chest radiograph during port placement 08/26/2023 ACCESSION NUMBER(S): [id number] ORDERING CLINICIAN: SHANTELL ROSSI TECHNIQUE: ATTENDING LECTURER IN COMPUTER SCIENCE: Poncho Ruby M.D. TECHNICAL DESCRIPTION/FINDINGS: The procedure, including all risks, benefits and alternatives were explained to the patient in detail. All questions were answered and written informed consent was obtained. The patient was positioned supine on the fluoroscopy table. A time-out was performed. The right neck and anterosuperior chest overlying the indwelling MediPort were prepped and draped in usual sterile fashion. A access consultant fluoroscopic image was obtained demonstrating grossly unchanged positioning of the MediPort, with possible slight right lateral MediPort body angulation. Focused ultrasound was performed of the right internal jugular vein demonstrating patency and compressibility. Ultrasound images were saved. 1% lidocaine was administered subcutaneously for local anesthesia. Under real-time ultrasound guidance, the right internal jugular vein was accessed in antegrade direction using micropuncture technique. Ultrasound images were saved. Under fluoroscopic visualization, an 018 guidewire was advanced into the right atrium and a micropuncture transitional introducer was placed. 1% lidocaine was administered around the port for local anesthesia. A transverse skin incision was made to coincide with the skin incision made during MediPort placement. Blunt dissection was performed to free the previously placed MediPort which was removed with the MediPort catheter in toto. The MediPort pocket was then generously irrigated with sterile saline. A new Bard standard size ClearVue Powerport was then placed in the MediPort pocket and the catheter was tunneled to the skin incision overlying the venotomy. Through the micropuncture access, an 035 guidewire was placed into the IVC and peel-away sheath was placed. After trimming for appropriate catheter length the MediPort catheter was then placed through the peel-away sheath. Completion fluoroscopic image was obtained demonstrating the newly placed MediPort catheter tip at the superior cavoatrial junction. Catheter lumen easily aspirated and flushed was locked with a concentrated heparinized solution (100 units/cc). Skin incision overlying the MediPort was closed with interrupted 3-0 subcutaneous absorbable sutures, dural garcia, and Steri-Strips. Sterile dressings were applied. SEDATION/MEDICATIONS: Continuous cardiopulmonary monitoring was performed by a radiology nurse for the duration of the procedure. 2 mg Versed and 100 mcg Fentanyl were administered for moderate conscious sedation time of 40 minutes. 20 cc 1% Lidocaine was administered subcutaneously for local anesthesia. SPECIMENS: None. ESTIMATED BLOOD LOSS: 5 cc FLOUROSCOPY: 0.3 minutes; DAP 774 mGy-cm*2; Air Kerma 5.13 mGy CONTRAST: None. FINDINGS: Test [facility] MMODAL Poncho Ruby MD - 10/19/2023 Interpreted By: Poncho Ruby, STUDY: IR CVC CHECK; ; 10/18/2023 10:00 am ULTRASOUND AND FLUOROSCOPICALLY GUIDED RIGHT INTERNAL JUGULAR VEIN MEDIPORT FLUOROSCOPICALLY ASSISTED REMOVAL OF RIGHT INTERNAL JUGULAR VEIN MEDIPORT INDICATION: Signs/Symptoms:DYE STUDY/POSSIBLE EXCHANGE. 47-year-old woman requiring durable IV access for infusion therapy. Concern for rotation of her previously placed right internal jugular vein MediPort which has been in accessible by infusion center providers. COMPARISON: Chest radiograph during port placement 08/26/2023 ACCESSION NUMBER(S): [id number] ORDERING CLINICIAN: SHANTELL ROSSI TECHNIQUE: ATTENDING LECTURER IN COMPUTER SCIENCE: Poncho Ruby M.D. TECHNICAL DESCRIPTION/FINDINGS: The procedure, including all risks, benefits and alternatives were explained to the patient in detail. All questions were answered and written informed consent was obtained. The patient was positioned supine on the fluoroscopy table. A time-out was performed. The right neck and anterosuperior chest overlying the indwelling MediPort were prepped and draped in usual sterile fashion. A access consultant fluoroscopic image was obtained demonstrating grossly unchanged positioning of the MediPort, with possible slight right lateral MediPort body angulation. Focused ultrasound was performed of the right internal jugular vein demonstrating patency and compressibility. Ultrasound images were saved. 1% lidocaine was administered subcutaneously for local anesthesia. Under real-time ultrasound guidance, the right internal jugular vein was accessed in antegrade direction using micropuncture technique. Ultrasound images were saved. Under fluoroscopic visualization, an 018 guidewire was advanced into the right atrium and a micropuncture transitional introducer was placed. 1% lidocaine was administered around the port for local anesthesia. A transverse skin incision was made to coincide with the skin incision made during MediPort placement. Blunt dissection was performed to free the previously placed MediPort which was removed with the MediPort catheter in toto. The MediPort pocket was then generously irrigated with sterile saline. A new Bard standard size ClearVue Powerport was then placed in the MediPort pocket and the catheter was tunneled to the skin incision overlying the venotomy. Through the micropuncture access, an 035 guidewire was placed into the IVC and peel-away sheath was placed. After trimming for appropriate catheter length the MediPort catheter was then placed through the peel-away sheath. Completion fluoroscopic image was obtained demonstrating the newly placed MediPort catheter tip at the superior cavoatrial junction. Catheter lumen easily aspirated and flushed was locked with a concentrated heparinized solution (100 units/cc). Skin incision overlying the MediPort was closed with interrupted 3-0 subcutaneous absorbable sutures, dural garcia, and Steri-Strips. Sterile dressings were applied. SEDATION/MEDICATIONS: Continuous cardiopulmonary monitoring was performed by a radiology nurse for the duration of the procedure. 2 mg Versed and 100 mcg Fentanyl were administered for moderate conscious sedation time of 40 minutes. 20 cc 1% Lidocaine was administered subcutaneously for local anesthesia. SPECIMENS: None. ESTIMATED BLOOD LOSS: 5 cc FLOUROSCOPY: 0.3 minutes; DAP 774 mGy-cm*2; Air Kerma 5.13 mGy CONTRAST: None. FINDINGS: Test IMPRESSION: 1. Fluoroscopically assisted removal of previously placed right internal jugular vein MediPort, which had minimally rotated in the subcutaneous tissues of the anterosuperior right chest. 2. Ultrasound and fluoroscopically guided placement of new right internal jugular vein MediPort, ready for immediate use. MACRO: None Signed by: Poncho Ruby 10/19/2023 2:35 PM Dictation workstation: [id number] [facility] Work Phone: [facility] Work Phone: CPEPon 10-18-2023 C-Peptide 2.99 ng/mL Normal 0.81-3.85 [facility] ([place]) Comment on above: Performed By: #### A DIFF, ANEU, CMP, MG, GFR, LD, CRP, CBC, ESR #### [address] [address] IR CVC CHECKon 10-18-2023 IR CVC CHECK Normal [facility] RF Unspecified body region V iews for central venous catheter placement checkon 10-18-2023 Radiology Study observation (narrative) [facility] Work Phone: .Auto Diffon 10-17-2023 Basophil, Absolute 0.1 10 3/mcL Normal 0.0-0.2 [facility] ([place]) Comment on above: Performed By: #### A DIFF, ANEU, CMP, MG, GFR, LD, CRP, CBC, ESR #### [address] [address] Basophils/100 WBC (Bld) 1.1 % Normal 0.0-2.5 [facility] ([place]) Comment on above: Performed By: #### A DIFF, ANEU, CMP, MG, GFR, LD, CRP, CBC, ESR #### [address] [address] Eosinophil, Absolute 0.1 10 3/mcL Normal 0.0-0.4 [facility] ([place]) Comment on above: Performed By: #### A DIFF, ANEU, CMP, MG, GFR, LD, CRP, CBC, ESR #### [address] [address] Eosinophils/100 WBC (Bld) 1.0 % Normal 0.0-7.0 [facility] ([place]) Comment on above: Performed By: #### A DIFF, ANEU, CMP, MG, GFR, LD, CRP, CBC, ESR #### [address] [address] Lymphocyte, Absolute 1.7 10 3/mcL Normal 0.8-3.9 [facility] ([place]) Comment on above: Performed By: #### A DIFF, ANEU, CMP, MG, GFR, LD, CRP, CBC, ESR #### [address] [address] Lymphocytes/100 WBC (Bld) 16.8 % Normal 10.0-50.0 [facility] ([place]) Comment on above: Performed By: #### A DIFF, ANEU, CMP, MG, GFR, LD, CRP, CBC, ESR #### [address] [address] Monocyte, Absolute 0.6 10 3/mcL Normal 0.2-1.0 [facility] ([place]) Comment on above: Performed By: #### A DIFF, ANEU, CMP, MG, GFR, LD, CRP, CBC, ESR #### [address] [address] Monocytes/100 WBC (Bld) 5.7 % Normal 1.7-13.0 [facility] ([place]) Comment on above: Performed By: #### A DIFF, ANEU, CMP, MG, GFR, LD, CRP, CBC, ESR #### [address] [address] Neutrophils/100 WBC (Bld) 75.4 % Normal 37.0-80.0 [facility] ([place]) Comment on above: Performed By: #### A DIFF, ANEU, CMP, MG, GFR, LD, CRP, CBC, ESR #### [address] [address] .GFRon 10-17-2023 GFR Non- 49 ml/min/1.73sqm Normal [facility] ([place]) Comment on above: Result Comment: GFR Population mean for , Non- Americans Ages 20-29 = 116 mL/min/1.73 sq.m. Ages 30-39 = 107 mL/min/1.73 sq.m. Ages 40-49 = 99 mL/min/1.73 sq.m. Ages 50-59 = 93 mL/min/1.73 sq.m. Ages 60-69 = 85 mL/min/1.73 sq.m. Ages 70+ = 75 mL/min/1.73 sq.m. Chronic Kidney Disease: Less than 60 mL/min/1.73 square meters End Stage Renal Disease: Less than 15 mL/min/1.73 square meters Performed By: #### U Abigail PREGU #### [address] [place], [place] [address] GFR 60 ml/min/1.73sqm Normal [facility] ([place]) Comment on above: Result Comment: GFR Population mean for , Non- Americans Ages 20-29 = 116 mL/min/1.73 sq.m. Ages 30-39 = 107 mL/min/1.73 sq.m. Ages 40-49 = 99 mL/min/1.73 sq.m. Ages 50-59 = 93 mL/min/1.73 sq.m. Ages 60-69 = 85 mL/min/1.73 sq.m. Ages 70+ = 75 mL/min/1.73 sq.m. Chronic Kidney Disease: Less than 60 mL/min/1.73 square meters End Stage Renal Disease: Less than 15 mL/min/1.73 square meters Performed By: #### U RONALD HayesU #### [address] [place], [place] [address] .MDWon 10-17-2023 Monocyte Distribution Width 16.89 Normal 0.00-20.00 [facility] ([place]) Comment on above: Result Comment: For ED adult patients suspected of sepsis, MDW<=20.0 does not rule out sepsis or risk of sepsis Performed By: #### A DIFF, ANEU, CMP, MG, GFR, LD, CRP, CBC, ESR #### [address] [address] .NEUABSon 10-17-2023 Neutrophil, Absolute 7.6 10 3/mcL High 2.9-6.2 [facility] ([place]) Comment on above: Performed By: #### A DIFF, ANEU, CMP, MG, GFR, LD, CRP, CBC, ESR #### [address] [address] .Urinalysis Microscopic (AO) on 10-17-2023 UA RBC 0-5 Abnormal None Seen [facility] ([place]) Comment on above: Performed By: #### A DIFF, ANEU, CMP, MG, GFR, LD, CRP, CBC, ESR #### [address] [address] UA Squam Epithelial 0-5 Abnormal None Seen [facility] ([place]) Comment on above: Performed By: #### A DIFF, ANEU, CMP, MG, GFR, LD, CRP, CBC, ESR #### [address] [address] UA WBC None Seen Normal None Seen [facility] ([place]) Comment on above: Performed By: #### A DIFF, ANEU, CMP, MG, GFR, LD, CRP, CBC, ESR #### [address] [address] BMPon 10-17-2023 BUN/Creatinine Ratio 14 ratio Normal 7-27 [facility] ([place]) Comment on above: Order Comment: [place] in [place] notified of specimen hemolyzed for recollect 10/17/2023 16:22:32 EST called by kl Performed By: #### U A, PREGU #### [address] [place], [place] [address] Calcium [Mass/Vol] 9.0 mg/dL Normal 8.4-10.2 [facility] ([place]) Comment on above: Order Comment: [place] in [place] notified of specimen hemolyzed for recollect 10/17/2023 16:22:32 EST called by kl Performed By: #### U A, PREGU #### [address] [place], [place] [address] Chloride [Moles/Vol] 97 mmol/L Low 98-107 [facility] ([place]) Comment on above: Order Comment: [place] in [place] notified of specimen hemolyzed for recollect 10/17/2023 16:22:32 EST called by kl Performed By: #### U A, PREGU #### [address] [place], [place] [address] CO2 [Moles/Vol] 22 mmol/L Normal 22-29 [facility] ([place]) Comment on above: Order Comment: [place] in [place] notified of specimen hemolyzed for recollect 10/17/2023 16:22:32 EST called by kl Performed By: #### U A, PREGU #### [address] [place], [place] [address] Creatinine [Mass/Vol] 1.17 mg/dL High 0.55-1.02 [facility] ([place]) Comment on above: Order Comment: [place] in [place] notified of specimen hemolyzed for recollect 10/17/2023 16:22:32 EST called by kl Performed By: #### U A, PREGU #### [address] [place], [place] [address] Electrolyte Balance 15.0 mEq/L Normal 4.0-15.0 [facility] ([place]) Comment on above: Order Comment: [place] in [place] notified of specimen hemolyzed for recollect 10/17/2023 16:22:32 EST called by kl Performed By: #### U A, PREGU #### [address] [place], [place] [address] Glucose [Mass/Vol] 491 mg/dL Critically abnormal 70-105 [facility] ([place]) Comment on above: Order Comment: [place] in [place] notified of specimen hemolyzed for recollect 10/17/2023 16:22:32 EST called by kl Performed By: #### U A, PREGU #### [address] [place], [place] [address] Potassium [Moles/Vol] 4.4 mmol/L Normal 3.5-5.1 [facility] ([place]) Comment on above: Order Comment: [place] in [place] notified of specimen hemolyzed for recollect 10/17/2023 16:22:32 EST called by kl Performed By: #### U A, PREGU #### [address] [place], [place] [address] Sodium [Moles/Vol] 134 mmol/L Low 136-145 [facility] ([place]) Comment on above: Order Comment: [place] in [place] notified of specimen hemolyzed for recollect 10/17/2023 16:22:32 EST called by kl Performed By: #### U A, PREGU #### [address] [place], [place] [address] Urea nitrogen [Mass/Vol] 16 mg/dL Normal 7-18 [facility] ([place]) Comment on above: Order Comment: [place] in [place] notified of specimen hemolyzed for recollect 10/17/2023 16:22:32 EST called by kl Performed By: #### U A, PREGU #### [address] [place], [place] [address] CBCon 10-17-2023 Erythrocyte distribution width (RBC) [Ratio] 16.5 % High 11.5-14.5 [facility] ([place]) Comment on above: Performed By: #### A DIFF, ANEU, CMP, MG, GFR, LD, CRP, CBC, ESR #### [address] [address] Hematocrit (Bld) [Volume fraction] 41.6 % Normal 37.0-47.0 [facility] ([place]) Comment on above: Performed By: #### A DIFF, ANEU, CMP, MG, GFR, LD, CRP, CBC, ESR #### [address] [address] Hgb 13.9 G/dL Normal 12.0-16.0 [facility] ([place]) Comment on above: Performed By: #### A DIFF, ANEU, CMP, MG, GFR, LD, CRP, CBC, ESR #### [address] [address] MCH (RBC) [Entitic mass] 29.7 pg Normal 27.0-31.2 [facility] ([place]) Comment on above: Performed By: #### A DIFF, ANEU, CMP, MG, GFR, LD, CRP, CBC, ESR #### [address] [address] MCHC 33.3 G/dL Normal 33.0-37.0 [facility] ([place]) Comment on above: Performed By: #### A DIFF, ANEU, CMP, MG, GFR, LD, CRP, CBC, ESR #### [address] [address] MCV (RBC) [Entitic vol] 89.2 fL Normal 80.0-94.0 [facility] ([place]) Comment on above: Performed By: #### A DIFF, ANEU, CMP, MG, GFR, LD, CRP, CBC, ESR #### [address] [address] Platelet 381 10 3/mcL Normal 130-400 [facility] ([place]) Comment on above: Performed By: #### A DIFF, ANEU, CMP, MG, GFR, LD, CRP, CBC, ESR #### [address] [address] Platelet mean volume (Bld) [Entitic vol] 7.0 fL Low 7.4-10.4 [facility] ([place]) Comment on above: Performed By: #### A DIFF, ANEU, CMP, MG, GFR, LD, CRP, CBC, ESR #### [address] [address] RBC 4.67 10 6/mcL Normal 4.20-5.40 [facility] ([place]) Comment on above: Performed By: #### A DIFF, ANEU, CMP, MG, GFR, LD, CRP, CBC, ESR #### [address] [address] WBC 10.1 10 3/mcL Normal 4.6-10.8 [facility] ([place]) Comment on above: Performed By: #### A DIFF, ANEU, CMP, MG, GFR, LD, CRP, CBC, ESR #### [address] [address] HFPon 10-17-2023 Bili Indirect 0.2 mg/dL Normal [facility] ([place]) Comment on above: Performed By: #### A DIFF, ANEU, CMP, MG, GFR, LD, CRP, CBC, ESR #### [address] [address] Albumin Level 4.1 G/dL Normal 3.5-5.0 [facility] ([place]) Comment on above: Performed By: #### A DIFF, ANEU, CMP, MG, GFR, LD, CRP, CBC, ESR #### [address] [address] Albumin/Globulin [Mass ratio] 1.0 {ratio} Low 1.1-2.5 [facility] ([place]) Comment on above: Performed By: #### A DIFF, ANEU, CMP, MG, GFR, LD, CRP, CBC, ESR #### [address] [address] ALP [Catalytic activity/Vol] 108 U/L Normal 40-135 [facility] ([place]) Comment on above: Performed By: #### A DIFF, ANEU, CMP, MG, GFR, LD, CRP, CBC, ESR #### [address] [address] ALT [Catalytic activity/Vol] 57 U/L Normal 14-59 [facility] ([place]) Comment on above: Performed By: #### A DIFF, ANEU, CMP, MG, GFR, LD, CRP, CBC, ESR #### [address] [address] AST [Catalytic activity/Vol] 19 U/L Normal 10-40 [facility] ([place]) Comment on above: Performed By: #### A DIFF, ANEU, CMP, MG, GFR, LD, CRP, CBC, ESR #### [address] [address] Bili Direct 0.1 mg/dL Normal 0.0-0.2 [facility] ([place]) Comment on above: Result Comment: Use of this assay is not recommended for patients undergoing treatment with eltrombopag due to the potential for falsely elevated results. Performed By: #### A DIFF, ANEU, CMP, MG, GFR, LD, CRP, CBC, ESR #### [address] [address] Bili Total 0.3 mg/dL Normal 0.2-1.0 [facility] ([place]) Comment on above: Result Comment: Use of this assay is not recommended for patients undergoing treatment with eltrombopag due to the potential for falsely elevated results. Performed By: #### A DIFF, ANEU, CMP, MG, GFR, LD, CRP, CBC, ESR #### [address] [place], [place] [address] Globulin 4.0 G/dL Normal [facility] ([place]) Comment on above: Performed By: #### A DIFF, ANEU, CMP, MG, GFR, LD, CRP, CBC, ESR #### [address] [place], [place] [address] Total Protein 8.1 G/dL Normal 6.4-8.2 [facility] ([place]) Comment on above: Performed By: #### A DIFF, ANEU, CMP, MG, GFR, LD, CRP, CBC, ESR #### [address] [place], [place] [address] LABORATORYOrdered By: Maureen Leung on 10-17-2023 Blood Glucose Testing Reason Symptoms of hyperglycemia (10/17/23 5:28 PM) [facility] Glucose [Mass/Vol] 491 mg/dL Invalid Interpretation Code 70 - 110 mg/dL [facility] LABORATORYOrdered By: SYSTEM SYSTEM on 10-17-2023 Albumin BCP dye [Mass/Vol] 4.1 G/dL Normal 3.5 - 5.0 G/dL AO ADM SS Albumin/Globulin [Mass ratio] 1.0 {ratio} Low 1.1 - 2.5 ratio AO ADM SS ALP [Catalytic activity/Vol] 108 U/L Normal 40 - 135 U/L AO ADM SS ALT With P-5'-P [Catalytic activity/Vol] 57 U/L Normal 14 - 59 U/L AO ADM SS AST With P-5'-P [Catalytic activity/Vol] 19 U/L Normal 10 - 40 U/L AO ADM SS Basophil, Absolute 0.1 103/mcL Normal 0.0 - 0.2 10^3/mcL AO Workflow SS Basophils/100 WBC (Bld) 1.1 % Normal 0.0 - 2.5 % AO Workflow SS Bilirubin [Mass/Vol] 0.3 mg/dL Normal 0.2 - 1 .0 mg/dL AO ADM SS Comment on above: Interpretive Data: U se of this assay is not recommended for patients undergoing treatment with eltrombopag due to the potential for falsely elevated results. Bilirubin.direct [Mass/Vol] 0.1 mg/dL Normal 0.0 - 0.2 mg/dL AO ADM SS Comment on above: Interpretive Data: U se of this assay is not recommended for patients undergoing treatment with eltrombopag due to the potential for falsely elevated results. Bilirubin.direct [Mass/Vol] 0.2 mg/dL Invalid Interpretation Code AO Chemistry S Calcium [Mass/Vol] 9.0 mg/dL Normal 8.4 - 10. 2 mg/dL AO ADM SS Chloride [Moles/Vol] 97 mmol/L Low 98 - 10 7 mmol/L AO ADM SS CO2 [Moles/Vol] 22 mmol/L Normal 22 - 29 mmol/L AO ADM SS Creatinine [Mass/Vol] 1.17 mg/dL High 0.55 - 1.02 mg/dL AO ADM SS Electrolyte Balance 15.0 mEq/L Normal 4.0 - 15 .0 mEq/L AO ADM SS Eosinophil, Absolute 0.1 103/mcL Normal 0.0 - 0 .4 10^3/mcL AO Workflow SS Eosinophils/100 WBC (Bld) 1.0 % Normal 0.0 - 7.0 % AO Workflow SS Erythrocyte distribution width (RBC) [Ratio] 16.5 % High 11.5 - 14.5 % AO Workflow SS GFR/1.73 sq M.predicted among blacks MDRD (S/P/Bld) [Vol rate/Area] 60 ml/min/1.73sqm Invalid Interpretation Code AO Chemistry S Comment on above: Interpretive Data: GFR Population mean for , Non- Americans Ages 20-29 = 116 mL/min/1.73 sq.m. Ages 30-39 = 107 mL/min/1.73 sq.m. Ages 40-49 = 99 mL/min/1.73 sq.m. Ages 50-59 = 93 mL/min/1.73 sq.m. Ages 60-69 = 85 mL/min/1.73 sq.m. Ages 70+ = 75 mL/min/1.73 sq.m. Chronic Kidney Disease: Less than 60 mL/min/1.73 square meters End Stage Renal Disease: Less than 15 mL/min/1.73 square meters GFR/1.73 sq M.predicted among non-blacks MDRD (S/P/Bld) [Vol rate/Area] 49 ml/min/1.73sqm Invalid Interpretation Code AO Chemistry S Comment on above: Interpretive Data: GFR Population mean for , Non- Americans Ages 20-29 = 116 mL/min/1.73 sq.m. Ages 30-39 = 107 mL/min/1.73 sq.m. Ages 40-49 = 99 mL/min/1.73 sq.m. Ages 50-59 = 93 mL/min/1.73 sq.m. Ages 60-69 = 85 mL/min/1.73 sq.m. Ages 70+ = 75 mL/min/1.73 sq.m. Chronic Kidney Disease: Less than 60 mL/min/1.73 square meters End Stage Renal Disease: Less than 15 mL/min/1.73 square meters Globulin 4.0 G/dL Invalid Interpretation Code AO ADM SS Glucose [Mass/Vol] 491 mg/dL Invalid Interpretation Code 70 - 105 mg/dL AO ADM SS Comment on above: Result Comment: lottie Greer in er 10/17/2023 17:10:55 EST called by marky Hematocrit (Bld) [Volume fraction] 41.6 % Normal 37.0 - 47.0 % AO Workflow SS Hemoglobin (Bld) [Mass/Vol] 13.9 G/dL Normal 12.0 - 16.0 G/dL AO Workflow SS Lipase [Catalytic activity/Vol] 57 U/L Normal 16 - 77 U/L AO ADM SS Lymphocyte, Absolute 1.7 103/mcL Normal 0.8 - 3 .9 10^3/mcL AO Workflow SS Lymphocytes/100 WBC (Bld) 16.8 % Normal 10.0 - 50.0 % AO Workflow SS MCH (RBC) [Entitic mass] 29.7 pg Normal 27.0 - 31.2 pg AO Workflow SS MCHC 33.3 G/dL Normal 33.0 - 37.0 G/dL AO Workflow SS MCV (RBC) [Entitic vol] 89.2 fL Normal 80.0 - 94.0 fL AO Workflow SS Monocyte distribution width Auto (Bld) [Entitic vol] 16.89 1 Normal 0.00 - 20.00 AO Workflow SS Comment on above: Result Comment: For ED adult patients suspected of sepsis, MDW<=20.0 does not rule out sepsis or risk of sepsis Monocyte, Absolute 0.6 103/mcL Normal 0.2 - 1.0 10^3/mcL AO Workflow SS Monocytes/100 WBC (Bld) 5.7 % Normal 1.7 - 13.0 % AO Workflow SS Neutrophil, Absolute 7.6 103/mcL High 2.9 - 6 .2 10^3/mcL AO Workflow SS Neutrophils/100 WBC (Bld) 75.4 % Normal 37.0 - 80.0 % AO Workflow SS Platelet mean volume (Bld) [Entitic vol] 7.0 fL Low 7.4 - 10.4 fL AO Workflow SS Platelets (Bld) [#/Vol] 381 103/mcL Normal 130 - 400 10^3/mcL AO Workflow SS Potassium [Moles/Vol] 4.4 mmol/L Normal 3.5 - 5.1 mmol/L AO ADM SS Protein [Mass/Vol] 8.1 G/dL Normal 6.4 - 8.2 G/dL AO ADM SS RBC (Bld) [#/Vol] 4.67 106/mcL Normal 4.20 - 5.4 0 10^6/mcL AO Workflow SS Sodium [Moles/Vol] 134 mmol/L Low 136 - 145 mmol/L AO ADM SS Urea nitrogen [Mass/Vol] 16 mg/dL Normal 7 - 18 mg/dL AO ADM SS Urea nitrogen/Creatinine [Mass ratio] 14 ratio Normal 7 - 27 ratio AO ADM SS WBC (Bld) [#/Vol] 10.1 103/mcL Normal 4.6 - 10.8 10^3/mcL AO Workflow SS LABORATORYOrdered By: Nieves Ulloa on 10-17-2023 Appearance (U) Clear (10/17/23 4:21 PM) Normal Clear AO Auto Urine SS Bilirubin Ql (U) Negative (10/17/23 4:21 PM) Normal Negative AO Auto Urine SS Color (U) Yellow (10/17/23 4:21 PM) Normal AO Auto Urine SS Glucose Test strip (U) [Mass/Vol] 500 mg/dL Invalid Interpretation Code Negative AO Auto Urine SS HCG ( test) Ql Negative (10/17/23 4:21 PM) Normal AO Manual Urine SS Hemoglobin Auto test strip (U) [Mass/Vol] Small *ABN* (10/17/23 4:21 PM) Invalid Interpretation Code Negative AO Auto Urine SS Ketones Ql (U) Negative Normal Negative AO Auto Ur ine SS test (u) int Not detected Invalid Interpretation Code AO Manual Urine SS UA Leuk Est Negative (10/17/23 4:21 PM) Normal Negative AO Auto Urine SS UA Nitrite Negative (10/17/23 4:21 PM) Normal Negative AO Auto Urine SS UA pH 6.5 (10/17/23 4:21 PM) Normal 5.0 - 8.0 AO Auto Urine SS UA Protein Negative Normal Negative AO Auto Urine SS UA RBC 0-5 /HPF Invalid Interpretation Code None Seen AO Auto Urine SS UA Spec Grav 1.025 (10/17/23 4:21 PM) Normal 1.015-1.025 AO Auto Urine SS UA Specimen Type Clean Catch (10/17/23 4:21 PM) Normal AO Auto Urine SS UA Squam Epithelial 0-5 /HPF Invalid Interpretation Code None Seen AO Auto Urine SS UA Urobilinogen 0.2 E.U./dL Normal 0.2-1.0 AO Auto Urine SS WBC LM.HPF (Urine sed) [#/Area] None Seen /HPF Normal None Seen AO Auto Urine SS LABORATORYOrdered By: Cynthia Garcia on 10-17-2023 INR Coag (PPP) [Relative time] 1.1 {INR} Invalid Interpretation Code AO HemoHub SS Comment on above: Interpretive Data: Humberto cochran [employer] (CHEST, 1991, 102:312S-25S) recommended therapeutic range for oral anticoagulant therapy is: LOW RISK: Prophylaxis of venous thrombosis INR: 2.0-3.0 Treatment of pulmonary embolism 2.0-3.0 Prevention of systemic embolism 2.0-3.0 HIGH RISK: Mechanical prosthetic valves 2.5-3.5 PT Coag (PPP) [Time] 12.6 s Normal 9.0 - 1 4.2 seconds AO HemoHub SS LIPon 10-17-2023 Lipase Level 57 U/L Normal 16-77 [facility] ([place]) Comment on above: Performed By: #### A DIFF, ANEU, CMP, MG, GFR, LD, CRP, CBC, ESR #### Sean [address] [address] PREGUon 10-17-2023 HCG ( test) Ql (U) Negative Normal [facility] ([place]) Comment on above: Performed By: #### A DIFF, ANEU, CMP, MG, GFR, LD, CRP, CBC, ESR #### [address] [address] test (u) int Not detected Invalid Interpretation Code [facility] ([place]) Comment on above: Performed By: #### A DIFF, ANEU, CMP, MG, GFR, LD, CRP, CBC, ESR #### [address] [address] PROon 10-17-2023 PT Coag (PPP) [Time] 12.6 s Normal 9.0-14.2 [facility] ([place]) Comment on above: Performed By: #### U A, PREGU #### [facility] [address] [place], [place] [address] PT International Ratio 1.1 Normal [facility] ([place]) Comment on above: Result Comment: [employer] (CHEST, 1991, 102:312S-25S) recommended therapeutic range for oral anticoagulant therapy is: LOW RISK: Prophylaxis of venous thrombosis INR: 2.0-3.0 Treatment of pulmonary embolism 2.0-3.0 Prevention of systemic embolism 2.0-3.0 HIGH RISK: Mechanical prosthetic valves 2.5-3.5 Performed By: #### U A, PREGU #### [facility] [address] [place], [place] [address] UAon 10-17-2023 Color (U) Yellow Normal [facility] ([place]) Comment on above: Performed By: #### A DIFF, ANEU, CMP, MG, GFR, LD, CRP, CBC, ESR #### [address] [address] Glucose (U) [Mass/Vol] 500 mg/dL Abnormal Negative [facility] ([place]) Comment on above: Performed By: #### A DIFF, ANEU, CMP, MG, GFR, LD, CRP, CBC, ESR #### [address] [address] Ketones Ql (U) Negative Normal Negative [facility] ([place]) Comment on above: Performed By: #### A DIFF, ANEU, CMP, MG, GFR, LD, CRP, CBC, ESR #### [address] [address] UA Appear Clear Normal Clear [facility] ([place]) Comment on above: Performed By: #### A DIFF, ANEU, CMP, MG, GFR, LD, CRP, CBC, ESR #### [address] [address] UA Blood Small Abnormal Negative [facility] ([place]) Comment on above: Performed By: #### A DIFF, ANEU, CMP, MG, GFR, LD, CRP, CBC, ESR #### [address] [address] UA Leuk Est Negative Normal Negative [facility] ([place]) Comment on above: Performed By: #### A DIFF, ANEU, CMP, MG, GFR, LD, CRP, CBC, ESR #### [address] [address] UA Nitrite Negative Normal Negative [facility] ([place]) Comment on above: Performed By: #### A DIFF, ANEU, CMP, MG, GFR, LD, CRP, CBC, ESR #### [address] [address] UA pH 6.5 Normal 5.0 - 8.0 [facility] ([place]) Comment on above: Performed By: #### A DIFF, ANEU, CMP, MG, GFR, LD, CRP, CBC, ESR #### [address] [address] UA Protein Negative Normal Negative [facility] ([place]) Comment on above: Performed By: #### A DIFF, ANEU, CMP, MG, GFR, LD, CRP, CBC, ESR #### [address] [address] UA Spec Grav 1.025 Normal 1.015-1.025 [facility] ([place]) Comment on above: Performed By: #### A DIFF, ANEU, CMP, MG, GFR, LD, CRP, CBC, ESR #### [address] [address] UA Specimen Type Clean Catch Normal [facility] ([place]) Comment on above: Performed By: #### A DIFF, ANEU, CMP, MG, GFR, LD, CRP, CBC, ESR #### [address] [address] UA Urobilinogen 0.2 E.U./dL Normal 0.2-1.0 [facility] ([place]) Comment on above: Performed By: #### A DIFF, ANEU, CMP, MG, GFR, LD, CRP, CBC, ESR #### [place] [id number] Urobilinogen (U) [Mass/Vol] Negative Normal Negative [facility] ([place]) Comment on above: Performed By: #### A DIFF, ANEU, CMP, MG, GFR, LD, CRP, CBC, ESR #### [address] [address] Guidance for placement of CV catheter with port in Cheston 08-26-2023 1. Uncomplicated placement of a right infraclavicular single-lumen Mediport- 8-Tuvaluan catheter tip residing at the cavoatrial junction. 2. CT power-injection compatible Mediport. 3. MRI-compatible Mediport. Optimal functioning device and ready for utilization. I was present for and/or performed the critical portions of the procedure and immediately available throughout the entire procedure. I personally reviewed the image(s) / study and resident interpretation. I agree with the findings as stated. Performed and dictated at [facility]. MACRO: None Signed by: Christophe Garcia 08/26/2023 1:39 PM Dictation workstation: [id number] Interpreted By: Christophe Garcia, STUDY: IR CVC PORT PLACEMENT; 08/26/2023 1:08 pm INDICATION: Signs/Symptoms:Port implant poor IV access, can receive opioid sparing infusion once every 2 weeks. COMPARISON: None. ACCESSION NUMBER(S): [id number] ORDERING CLINICIAN: TIANNA RASMUSSEN TECHNIQUE: INTERVENTIONALIST(S): Christophe Garcia MD CONSENT: The patient/patient's POA/next of kin was informed of the nature of the proposed procedure. The purposes, alternatives, risks, and benefits were explained and discussed. All questions were answered and consent was obtained. RADIATION EXPOSURE: Fluoroscopy time: 0.1 min. SEDATION: Moderate conscious IV sedation services (supervision of administration, induction, and maintenance) were provided by the physician performing the procedure with intravenous fentanyl 50 mcg and versed 1 mg for 30 minutes. The physician was assisted by an independent trained observer, an interventional radiology nurse, in the continuous monitoring of patient level of consciousness and physiologic status. MEDICATION/CONTRAST: No additional TIME OUT: A time out was performed immediately prior to procedure start with the interventional team, correctly identifying the patient name, date of , MRN, procedure, anatomy (including marking of site and side), patient position, procedure consent form, relevant laboratory and imaging test results, antibiotic administration, safety precautions, and procedure-specific equipment needs. COMPLICATIONS: No immediate adverse events identified. FINDINGS: Maximum sterile barrier technique was implemented. In the recumbent position, the patient was positioned on the angiography table. The right supraclavicular and infraclavicular cutaneous tissues were prepared and draped in usual sterile manner. The supraclavicular access site was screened with vaca-scale ultrasound with subsequent subcutaneous instillation of Lidocaine 1% local anesthesia. Ultrasound images demonstrate a patent right internal jugular vein. Under direct ultrasound guidance and Seldinger/micropuncture technique, the right internal jugular vein was accessed. An ultrasound digital spot image was acquired and stored on the PACS. After confirmation of location, a 018 Mouthcard-Mandril guidewire was inserted to secure location. The guidewire was advanced into the inferior vena cava utilizing intermittent fluoroscopy. The micro-access needle was removed over the guidewire. Utilizing a 5-on-4 coaxial dilator sheath system, upsize to a 035 3-J guidewire was performed. Subsequent access tract dilation was performed to an eventual 8.5-Tuvaluan peel-away sheath dilator system. Following Lidocaine 1% local anesthesia, a superolateral Mediport pocket was created in the subcutaneous infraclavicular chest wall. The Mediport pocket was irrigated with normal saline and prophylactic antibiotics. A subcutaneous tract was then created from the Mediport pocket to the venous access site. The 8-Tuvaluan port catheter was introduced maintaining continuity from the Mediport pocket to the venous access site and into the central venous system. An optimal length of catheter was measured with the tip at the right atrial/superior vena caval junction. The catheter was trimmed to the optimal length and the external portion was connected to the Mediport reservoir hub. After insertion into the Mediport pocket, a Carvajal needle was then utilized to access the reservoir to assess for leaks, evaluate for aspiration and flushability. The Mediport was then irrigated with low-dose heparinized saline. A fluoroscopic spot image of the chest was acquired in the AP projection to confirm optimal course and location of the subcutaneous and central venous catheter. In addition, optimal orientation and continuity to the Mediport reservoir were identified. After confirmation of optimal Mediport functioning, the Mediport pocket site was closed with subcutaneous absorbable Polysorb sutures in addition to cutaneous subcuticular closure. Sterile dressings were then placed at the Mediport reservoir and venotomy access site. The patient tolerated the procedure without complication. [facility] MMODAL Christophe Garcia MD - 08/26/2023 Interpreted By: Christophe Garcia, STUDY: IR CVC PORT PLACEMENT; 08/26/2023 1:08 pm INDICATION: Signs/Symptoms:Port implant poor IV access, can receive opioid sparing infusion once every 2 weeks. COMPARISON: None. ACCESSION NUMBER(S): [id number] ORDERING CLINICIAN: TIANNA RASMUSSEN TECHNIQUE: INTERVENTIONALIST(S): Christophe Garcia MD CONSENT: The patient/patient's POA/next of kin was informed of the nature of the proposed procedure. The purposes, alternatives, risks, and benefits were explained and discussed. All questions were answered and consent was obtained. RADIATION EXPOSURE: Fluoroscopy time: 0.1 min. SEDATION: Moderate conscious IV sedation services (supervision of administration, induction, and maintenance) were provided by the physician performing the procedure with intravenous fentanyl 50 mcg and versed 1 mg for 30 minutes. The physician was assisted by an independent trained observer, an interventional radiology nurse, in the continuous monitoring of patient level of consciousness and physiologic status. MEDICATION/CONTRAST: No additional TIME OUT: A time out was performed immediately prior to procedure start with the interventional team, correctly identifying the patient name, date of , MRN, procedure, anatomy (including marking of site and side), patient position, procedure consent form, relevant laboratory and imaging test results, antibiotic administration, safety precautions, and procedure-specific equipment needs. COMPLICATIONS: No immediate adverse events identified. FINDINGS: Maximum sterile barrier technique was implemented. In the recumbent position, the patient was positioned on the angiography table. The right supraclavicular and infraclavicular cutaneous tissues were prepared and draped in usual sterile manner. The supraclavicular access site was screened with vaca-scale ultrasound with subsequent subcutaneous instillation of Lidocaine 1% local anesthesia. Ultrasound images demonstrate a patent right internal jugular vein. Under direct ultrasound guidance and Seldinger/micropuncture technique, the right internal jugular vein was accessed. An ultrasound digital spot image was acquired and stored on the PACS. After confirmation of location, a 018 Mouthcard-Mandril guidewire was inserted to secure location. The guidewire was advanced into the inferior vena cava utilizing intermittent fluoroscopy. The micro-access needle was removed over the guidewire. Utilizing a 5-on-4 coaxial dilator sheath system, upsize to a 035 3-J guidewire was performed. Subsequent access tract dilation was performed to an eventual 8.5-Tuvaluan peel-away sheath dilator system. Following Lidocaine 1% local anesthesia, a superolateral Mediport pocket was created in the subcutaneous infraclavicular chest wall. The Mediport pocket was irrigated with normal saline and prophylactic antibiotics. A subcutaneous tract was then created from the Mediport pocket to the venous access site. The 8-Tuvaluan port catheter was introduced maintaining continuity from the Mediport pocket to the venous access site and into the central venous system. An optimal length of catheter was measured with the tip at the right atrial/superior vena caval junction. The catheter was trimmed to the optimal length and the external portion was connected to the Mediport reservoir hub. After insertion into the Mediport pocket, a Carvajal needle was then utilized to access the reservoir to assess for leaks, evaluate for aspiration and flushability. The Mediport was then irrigated with low-dose heparinized saline. A fluoroscopic spot image of the chest was acquired in the AP projection to confirm optimal course and location of the subcutaneous and central venous catheter. In addition, optimal orientation and continuity to the Mediport reservoir were identified. After confirmation of optimal Mediport functioning, the Mediport pocket site was closed with subcutaneous absorbable Polysorb sutures in addition to cutaneous subcuticular closure. Sterile dressings were then placed at the Mediport reservoir and venotomy access site. The patient tolerated the procedure without complication. IMPRESSION: 1. Uncomplicated placement of a right infraclavicular single-lumen Mediport- 8-Tuvaluan catheter tip residing at the cavoatrial junction. 2. CT power-injection compatible Mediport. 3. MRI-compatible Mediport. Optimal functioning device and ready for utilization. I was present for and/or performed the critical portions of the procedure and immediately available throughout the entire procedure. I personally reviewed the image(s) / study and resident interpretation. I agree with the findings as stated. Performed and dictated at [facility] (more content not included)... [facility] Work Phone: Radiology Study observation (narrative) [facility] Work Phone: Guidance for placement of CV catheter with port in ChestOrdered By: Christophe Garcia on 08-26-2023 [facility] Work Phone: IR CVC PORT PLACEMENTon 12-0 IR CVC PORT PLACEMENT Normal Uni [facility] No Panel Informationon 08-09 Culture Urine <10,000 cfu/ml. No Significant growth. Sensitivity not indicated. [facility] CBC panel Auto (Bld)on 08-03 Erythrocyte distribution width (RBC) [Ratio] 13.7 % Normal 11.5-14.5 [facility] Comment on above: Performed By: #### 5 8410-2 ####ANDI Cotter ([id number])[facility] ([facility])[address] [place] [address] Hematocrit (Bld) [Volume fraction] 41.7 % Normal 36.0-46.0 [facility] Comment on above: Performed By: #### 5 8410-2 ####ANDI Cotter ([id number])[facility] ([facility])[address] [place] [address] Hemoglobin (Bld) [Mass/Vol] 13.0 g/dL Normal 12.0-16.0 [facility] Comment on above: Performed By: #### 5 8410-2 ####ANDI Cotter ([id number])[facility] ([facility])[address] [place] [address] MCH (RBC) [Entitic mass] 29.7 pg Normal 26.0-34.0 [facility] Comment on above: Performed By: #### 5 8410-2 ####ANDI Cotter ([id number])[facility] ([facility])[address] [place] [address] MCHC (RBC) [Mass/Vol] 31.2 g/dL Low 32.0-36.0 [facility] Comment on above: Performed By: #### 5 8410-2 ####ANDI Cotter ([id number])[facility] ([facility])[address] [place] [address] MCV (RBC) [Entitic vol] 95 fL Normal 80-100 [facility] Comment on above: Performed By: #### 5 8410-2 ####ANDI Cotter ([id number])[facility] ([facility])[address] [place] [address] Nucleated RBC/100 WBC (Bld) [Ratio] 1.5 /100 WBCs High 0.0-0.0 [facility] Comment on above: Performed By: #### 5 8410-2 ####ANDI Cotter ([id number])[facility] ([facility])[address] [place] [address] Platelets (Bld) [#/Vol] 272 x10*3/uL Normal 150-450 [facility] Comment on above: Performed By: #### 5 8410-2 ####ANDI Cotter ([id number])[facility] ([facility])[address] [place] [address] RBC (Bld) [#/Vol] 4.37 x10*6/uL Normal 4.00-5.20 [facility] Comment on above: Performed By: #### 5 8410-2 ####ANDI Cotter ([id number])[facility] ([facility])[address] [place] [address] WBC (Bld) [#/Vol] 10.0 x10*3/uL Normal 4.4-11.3 [facility] Comment on above: Performed By: #### 5 8410-2 ####ANDI Cotter ([id number])[facility] ([facility])[address] [place] [address] Comprehensive metabolic 2000 panelon 08-03-2023 Albumin BCP dye [Mass/Vol] 4.5 g/dL Normal 3.4-5.0 [facility] Comment on above: Performed By: #### 2 4323-8 ####ANDI Cotter ([id number])[facility] ([facility])[address] [place] [address] ALP [Catalytic activity/Vol] 87 U/L Normal 33-110 [facility] Comment on above: Performed By: #### 2 4323-8 ####ANDI CHAUDHARY L ([id number])[facility] ([facility])[address] [place] [address] ALT With P-5'-P [Catalytic activity/Vol] 35 U/L Normal 7-45 [facility] Comment on above: Result Comment: Evelyn ents treated with Sulfasalazine may generate falsely decreased results for ALT. Performed By: #### 2 4323-8 ####ANDI Cotter ([id number])[facility] ([facility])[address] [place] [address] Anion gap [Moles/Vol] 27 mmol/L High 10-20 [facility] Comment on above: Performed By: #### 2 4323-8 ####ANDI CHAUDHARY L ([id number])[facility] ([facility])[address] [place] [address] AST With P-5'-P [Catalytic activity/Vol] 32 U/L Normal 9-39 [facility] Comment on above: Result Comment: MILD HEMOLYSIS DETECTED. The result may be falsely elevated due to hemolysis or other interferents. Clinical correlation is recommended. Repeat testing may be considered. Performed By: #### 2 4323-8 ####ANDI CHAUDHARY L ([id number])[facility] ([facility])[address] [place] [address] Bilirubin [Mass/Vol] 0.4 mg/dL Normal 0.0-1.2 [facility] Comment on above: Performed By: #### 2 4323-8 ####ANDI CHAUDHARY L ([id number])[facility] ([facility])[address] [place] [address] Calcium [Mass/Vol] 9.5 mg/dL Normal 8.6-10.6 [facility] Comment on above: Performed By: #### 2 4323-8 ####ANDI RENEEER L ([id number])[facility] ([facility])[address] [place] [address] Chloride [Moles/Vol] 102 mmol/L Normal 98-107 [facility] Comment on above: Performed By: #### 2 4323-8 ####ANDI RAJPUTMOTZER L ([id number])[facility] ([facility])[address] [place] [address] CO2 [Moles/Vol] 13 mmol/L Low 21-32 [facility] Comment on above: Performed By: #### 2 4323-8 ####ANDI RAJPUTMOTZER L ([id number])[facility] ([facility])[address] [place] [address] Creatinine [Mass/Vol] 0.72 mg/dL Normal 0.50-1.05 [facility] Comment on above: Performed By: #### 2 4323-8 ####ANDI Cotter ([id number])[facility] ([facility])[address] [place] [address] GFR/1.73 sq M.predicted MDRD (S/P/Bld) [Vol rate/Area] mL/min/{1.73_m2} Normal >60 [facility] Comment on above: Result Comment: Calc ulations of estimated GFR are performed using the 2020 CKD-EPI Study Refit equation without the race variable for the IDMS-Traceable creatinine methods.https://jasn.asnjournals.org/content/early/ N.6846393368 Performed By: #### 2 4323-8 ####ANDI Cotter ([id number])[facility] ([facility])[address] [place] [address] Glucose [Mass/Vol] 140 mg/dL High 74-99 [facility] Comment on above: Performed By: #### 2 4323-8 ####ANDI Cotter ([id number])[facility] ([facility])[address] [place] [address] Potassium [Moles/Vol] 4.6 mmol/L Normal 3.5-5.3 [facility] Comment on above: Result Comment: MILD HEMOLYSIS DETECTED. The result may be falsely elevated due to hemolysis or other interferents. Clinical correlation is recommended. Repeat testing may be considered. Performed By: #### 2 4323-8 ####ANDI CHAUDHARY L ([id number])[facility] ([facility])[address] [place] [address] Protein [Mass/Vol] 7.7 g/dL Normal 6.4-8.2 [facility] Comment on above: Performed By: #### 2 4323-8 ####ANDI CHAUDHARY L ([id number])[facility] ([facility])[address] [place] [address] Sodium [Moles/Vol] 137 mmol/L Normal 136-145 [facility] Comment on above: Performed By: #### 2 4323-8 ####ANDI Cotter ([id number])[facility] ([facility])[address] [place] [address] Urea nitrogen [Mass/Vol] 15 mg/dL Normal 6-23 [facility] Comment on above: Performed By: #### 2 4323-8 ####ANDI Cotter ([id number])[facility] ([facility])[address] [place] [address] IgG subclass 4on 08-03-2023 IgG subclass 4 (S) [Mass/Vol] 229 mg/dL High 3-200 [facility] Comment on above: Performed By: #### 2 469-5 ####ANDI Cotter ([id number])[facility] ([facility])[address] [place] [address] Triacylglycerol lipaseon Lipase [Catalytic activity/Vol] 17 U/L Normal 9-82 [facility] Comment on above: Order Comment: Venip uncture immediately after or during the administration of Metamizole may lead to falsely low results. Testing should be performed immediately prior to Metamizole dosing. Performed By: #### 3 040-3 ####ANDI Cotter ([id number])[facility] ([facility])[address] [place] [address] CBC W Auto Differential pane l (Bld)on 07-05-2023 Basophils (Bld) [#/Vol] 0.07 x10*3/uL Normal 0.00-0.10 [facility] Comment on above: Performed By: #### 5 7021-8 #### ALVRAO CROUCH ([id number]) [facility] ([facility]) [address] [place] [address] Basophils/100 WBC (Bld) 0.6 % Normal 0.0-2.0 [facility] Comment on above: Performed By: #### 5 7021-8 #### ALVARO CROUCH ([id number]) [facility] ([facility]) [address] [place] [address] Eosinophils (Bld) [#/Vol] 0.22 x10*3/uL Normal 0.00-0.70 [facility] Comment on above: Performed By: #### 5 7021-8 #### ALVARO CROUCH ([id number]) [facility] ([facility]) [address] [place] [address] Eosinophils/100 WBC (Bld) 1.9 % Normal 0.0-6.0 [facility] Comment on above: Performed By: #### 5 7021-8 #### ALVARO CROUCH ([id number]) [facility] ([facility]) [address] [place] [address] Erythrocyte distribution width (RBC) [Ratio] 13.2 % Normal 11.5-14.5 [facility] Comment on above: Performed By: #### 5 7021-8 #### ALVARO CROUCH ([id number]) [facility] ([facility]) [address] [place] [address] Hematocrit (Bld) [Volume fraction] 46.2 % High 36.0-46.0 [facility] Comment on above: Performed By: #### 5 7021-8 #### ALVARO CROUCH ([id number]) [facility] ([facility]) [address] [place] [address] Hemoglobin (Bld) [Mass/Vol] 15.0 g/dL Normal 12.0-16.0 [facility] Comment on above: Performed By: #### 5 7021-8 #### ALVARO CROUCH ([id number]) [facility] ([facility]) [address] [place] [address] Immature granulocytes (Bld) [#/Vol] 0.09 x10*3/uL Normal 0.00-0.70 [facility] Comment on above: Performed By: #### 5 7021-8 #### ALVARO CROUCH ([id number]) [facility] ([facility]) [address] [place] [address] Immature granulocytes/100 WBC (Bld) 0.8 % Normal 0.0-0.9 [facility] Comment on above: Result Comment: Debbie ture Granulocyte Count (IG) includes promyelocytes, myelocytes and metamyelocytes but does not include bands. Percent differential counts (%) should be interpreted in the context of the absolute cell counts (cells/UL). Performed By: #### 5 7021-8 #### ALVARO CROUCH ([id number]) [facility] ([facility]) [address] [place] [address] Lymphocytes (Bld) [#/Vol] 2.43 x10*3/uL Normal 1.20-4.80 [facility] Comment on above: Performed By: #### 5 7021-8 #### ALVARO CROUCH ([id number]) [facility] ([facility]) [address] [place] [address] Lymphocytes/100 WBC (Bld) 20.5 % Normal 13.0-44.0 [facility] Comment on above: Performed By: #### 5 7021-8 #### ALVARO CROUCH ([id number]) [facility] ([facility]) [address] [place] [address] MCH (RBC) [Entitic mass] 29.1 pg Normal 26.0-34.0 [facility] Comment on above: Performed By: #### 5 7021-8 #### ALVARO CROUCH ([id number]) [facility] ([facility]) [address] [place] [address] MCHC (RBC) [Mass/Vol] 32.5 g/dL Normal 32.0-36.0 [facility] Comment on above: Performed By: #### 5 7021-8 #### ALVARO CROUCH ([id number]) [facility] ([facility]) [address] [place] [address] MCV (RBC) [Entitic vol] 90 fL Normal 80-100 [facility] Comment on above: Performed By: #### 5 7021-8 #### ALVARO CROUCH ([id number]) [facility] ([facility]) [address] [place] [address] Monocytes (Bld) [#/Vol] 0.54 x10*3/uL Normal 0.10-1.00 [facility] Comment on above: Performed By: #### 5 7021-8 #### ALVARO CROUCH ([id number]) [facility] ([facility]) [address] [place] [address] Monocytes/100 WBC (Bld) 4.5 % Normal 2.0-10.0 [facility] Comment on above: Performed By: #### 5 7021-8 #### ALVARO CROUCH ([id number]) [facility] ([facility]) [address] [place] [address] Neutrophils (Bld) [#/Vol] 8.53 x10*3/uL High 1.20-7.70 [facility] Comment on above: Result Comment: Perc ent differential counts (%) should be interpreted in the context of the absolute cell counts (cells/uL). Performed By: #### 5 7021-8 #### ALVARO CROUCH ([id number]) [facility] ([facility]) [address] [place] [address] Neutrophils/100 WBC (Bld) 71.7 % Normal 40.0-80.0 [facility] Comment on above: Performed By: #### 5 7021-8 #### ALVARO CROUCH ([id number]) [facility] ([facility]) [address] [place] [address] Nucleated RBC/100 WBC (Bld) [Ratio] 0.0 /100 WBCs Normal 0.0-0.0 [facility] Comment on above: Performed By: #### 5 7021-8 #### ALVARO CROUCH ([id number]) [facility] ([facility]) [address] [place] [address] Platelet mean volume (Bld) [Entitic vol] 8.5 fL Normal 7.5-11.5 [facility] Comment on above: Performed By: #### 5 7021-8 #### ALVARO CROUCH ([id number]) [facility] ([facility]) [address] [place] [address] Platelets (Bld) [#/Vol] 531 x10*3/uL High 150-450 [facility] Comment on above: Performed By: #### 5 7021-8 #### ALVARO BURRISI ([id number]) [facility] ([facility]) [address] [place] [address] RBC (Bld) [#/Vol] 5.16 x10*6/uL Normal 4.00-5.20 [facility] Comment on above: Performed By: #### 5 7021-8 #### ALVARO PERRINFRI ([id number]) [facility] ([facility]) [address] [place] [address] WBC (Bld) [#/Vol] 11.9 x10*3/uL High 4.4-11.3 [facility] Comment on above: Performed By: #### 5 7021-8 #### ALVARO BURRISI ([id number]) [facility] ([facility]) [address] [place] [address] CT ABDOMEN PELVIS W IV CONTR Reny 07-05-2023 CT ABDOMEN PELVIS W IV CONTRAST STUDY: CT Abdomen and Pelvis with IV Contrast; 07/05/2023 7:42 PM INDICATION: Abdominal pain. COMPARISON: CT abdomen/pelvis 06/15/2023. US renal bilateral 05/14/2023. ACCESSION NUMBER(S): [id number] ORDERING CLINICIAN: SARAH HO TECHNIQUE: CT of the abdomen and pelvis was performed. Contiguous axial images were obtained at 3 mm slice thickness through the abdomen and pelvis. Coronal and sagittal reconstructions at 3 mm slice thickness were performed. Omnipaque 350, 75 mL was administered intravenously. Findings: Heart size normal. No pericardial effusion. Subsegmental atelectasis medial segment RIGHT middle lobe. Abdomen: Hepatic steatosis. No intrahepatic ductal dilatation identified. Gallbladder surgically absent. Fluid attenuating lesions within the region of the pancreatic head and uncinate process measuring approximately. The first measuring approximately 4.2 x 4.5 cm the second measuring 3.5 x 3.5 cm. Edematous changes and question fluid along the lesser curvature of the stomach. No significant adenopathy. Decrease in size of a 2 cm fluid collection adjacent to the proximal of the RIGHT hemidiaphragm. No acute renal process. No retroperitoneal adenopathy. No findings of abdominal aortic aneurysm. Inferior vena cava filter. No bowel obstruction. No free air or free fluid within the abdomen. The appendix is not visualized. No acute abnormality in its expected location. Pelvis: CT examination of the pelvis shows no free fluid. No findings of adenopathy or mass. No inflammatory change or findings of free air. Skeleton: No acute bony process identified. IMPRESSION: Fluid attenuating lesions within the region of the pancreatic head and uncinate process measuring approximately. These measuring approximately 4.2 x 4.5 cm the slightly more inferior collection measuring 3.5 x 3.5 cm. Edematous changes and question fluid along the lesser curvature of the stomach. No significant adenopathy. Decrease in size of a 2 cm fluid collection adjacent to the kyler the RIGHT hemidiaphragm. The appearance suggest pseudocyst formation and pancreatitis of otherwise similar appearance to the 06/15/23 examination. Difficult to completely exclude underlying malignant process. Continued follow-up recommended. Hepatic steatosis. No intrahepatic ductal dilatation identified. Gallbladder surgically absent. Signed by Andreea Winter MD Normal [facility] Comprehensive metabolic 2000 panelon 07-05-2023 Albumin BCP dye [Mass/Vol] 5.3 g/dL High 3.4-5.0 [facility] Comment on above: Performed By: #### 2 4323-8 #### ALVARO CROUCH ([id number]) [facility] ([facility]) [address] [place] [address] ALP [Catalytic activity/Vol] 109 U/L Normal 33-110 [facility] Comment on above: Performed By: #### 2 4323-8 #### ALVARO CROUCH ([id number]) [facility] ([facility]) [address] [place] [address] ALT With P-5'-P [Catalytic activity/Vol] 44 U/L Normal 7-45 [facility] Comment on above: Result Comment: Evelyn ents treated with Sulfasalazine may generate falsely decreased results for ALT. Performed By: #### 2 4323-8 #### ALVARO CROUCH ([id number]) [facility] ([facility]) [address] [place] [address] Anion gap [Moles/Vol] 22 mmol/L High 10-20 [facility] Comment on above: Performed By: #### 2 4323-8 #### ALVARO CROUCH ([id number]) [facility] ([facility]) [address] [place] [address] AST With P-5'-P [Catalytic activity/Vol] 33 U/L Normal 9-39 [facility] Comment on above: Performed By: #### 2 4323-8 #### ALVARO CROUCH ([id number]) [facility] ([facility]) [address] [place] [address] Bilirubin [Mass/Vol] 0.4 mg/dL Normal 0.0-1.2 [facility] Comment on above: Performed By: #### 2 432-8 #### ALVARO CROUCH ([id number]) [facility] ([facility]) [address] [place] [address] Calcium [Mass/Vol] 10.0 mg/dL Normal 8.6-10.3 [facility] Comment on above: Performed By: #### 2 432-8 #### ALVARO CROUCH ([id number]) [facility] ([facility]) [address] [place] [address] Chloride [Moles/Vol] 95 mmol/L Low 98-107 [facility] Comment on above: Performed By: #### 2 432-8 #### ALVARO CROUCH ([id number]) [facility] ([facility]) [address] [place] [address] CO2 [Moles/Vol] 21 mmol/L Normal 21-[address] [facility] Comment on above: Performed By: #### 2 432-8 #### ALVARO CROUCH ([id number]) [facility] ([facility]) [address] [place] [address] Creatinine [Mass/Vol] 0.92 mg/dL Normal 0.50-1.05 [facility] Comment on above: Performed By: #### 2 4323-8 #### ALVARO CROUCH ([id number]) [facility] ([facility]) [address] [place] [address] GFR/1.73 sq M.predicted MDRD (S/P/Bld) [Vol rate/Area] 77 mL/min/1.73m*2 Normal >60 [facility] Comment on above: Result Comment: Calc ulations of estimated GFR are performed using the 2020 CKD-EPI Study Refit equation without the race variable for the IDMS-Traceable creatinine methods. https://jasn.asnjournals.org/content/early//ASN.031655 1904 Performed By: #### 2 4323-8 #### ALVARO CROUCH ([id number]) [facility] ([facility]) [address] [place] [address] Glucose [Mass/Vol] 141 mg/dL High 74-99 [facility] Comment on above: Performed By: #### 2 432-8 #### ALVARO CROUCH ([id number]) [facility] ([facility]) [address] [place] [address] Potassium [Moles/Vol] 3.9 mmol/L Normal 3.5-5.3 [facility] Comment on above: Performed By: #### 2 4323-8 #### ALVARO CROUCH ([id number]) [facility] ([facility]) [address] [place] [address] Protein [Mass/Vol] 8.7 g/dL High 6.4-8.2 [facility] Comment on above: Performed By: #### 2 4323-8 #### ALVARO CROUCH ([id number]) [facility] ([facility]) [address] [place] [address] Sodium [Moles/Vol] 134 mmol/L Low 136-145 [facility] Comment on above: Performed By: #### 2 4323-8 #### ALVARO PERRINFRI ([id number]) [facility] ([facility]) [address] [place] [address] Urea nitrogen [Mass/Vol] 26 mg/dL High 6-23 [facility] Comment on above: Performed By: #### 2 4323-8 #### ALVARO CROUCH ([id number]) [facility] ([facility]) [address] [facility] [address] Triacylglycerol lipaseon Lipase [Catalytic activity/Vol] 43 U/L Normal [facility] Comment on above: Order Comment: Venip uncture immediately after or during the administration of Metamizole may lead to falsely low results. Testing should be performed immediately prior to Metamizole dosing. Performed By: #### 3 040-3 #### ALVARO CROUCH ([id number]) [facility] ([facility]) [address] [facility] [address] Urinalysis complete W Reflex Culture panel (U)on 07-05-2023 Appearance (U) Clear Normal Clear [facility] Comment on above: Performed By: #### 5 8077-9 #### ALVARO CROUCH ([id number]) [facility] ([facility]) [address] [facility] [place] [address] Bilirubin (U) [Mass/Vol] Negative Normal NEGATIVE [facility] Comment on above: Performed By: #### 5 8077-9 #### ALVARO CROUCH ([id number]) [facility] ([facility]) [address] [facility] [address] Color (U) Yellow Normal Straw, Yellow [facility] Comment on above: Performed By: #### 5 8077-9 #### ALVARO CROUCH ([id number]) [facility] ([facility]) [address] [facility] [place] [address] Glucose Auto test strip (U) [Mass/Vol] Negative Normal NEGATIVE [facility] Comment on above: Performed By: #### 5 8077-9 #### ALVARO CROUCH ([id number]) [facility] ([facility]) [address] [facility] [place] [address] Ketones (U) [Mass/Vol] Negative Normal NEGATIVE [facility] Comment on above: Performed By: #### 5 8077-9 #### ALVARO CROUCH ([id number]) [facility] ([facility]) [address] [place] [address] Leukocyte esterase Auto test strip Ql (U) Negative Normal NEGATIVE [facility] Comment on above: Performed By: #### 5 8077-9 #### ALVARO CROUCH ([id number]) [facility] ([facility]) [address] [place] [address] Nitrite Auto test strip Ql (U) Negative Normal NEGATIVE [facility] Comment on above: Performed By: #### 5 8077-9 #### ALVARO CROUCH ([id number]) [facility] ([facility]) [address] [facility] [address] pH (U) 5.0 [pH] Normal 5.0, 5.5, 6.0, 6.5, 7.0, 7.5, 8.0 [facility] Comment on above: Performed By: #### 5 8077-9 #### ALVARO CROUCH ([id number]) [facility] ([facility]) [address] [facility] [address] Protein (U) [Mass/Vol] Negative Normal NEGATIVE [facility] Comment on above: Performed By: #### 5 8077-9 #### ALVARO CROUCH ([id number]) [facility] ([facility]) [address] [facility] [address] RBC (U) [#/Vol] Negative Normal NEGATIVE [facility] Comment on above: Performed By: #### 5 8077-9 #### ALVARO CROUCH ([id number]) [facility] ([facility]) [address] [place] [address] Specific gravity (U) [Rel density] 1.015 Normal 1.005-1.035 [facility] Comment on above: Performed By: #### 5 8077-9 #### ALVARO CROUCH ([id number]) [facility] ([facility]) [address] [place] [address] Urobilinogen (U) [Mass/Vol] mg/dL Normal <2.0 [facility] Comment on above: Performed By: #### 5 8077-9 #### ALVARO CROUCH ([id number]) [facility] ([facility]) [address] [place] [address] Glucose Test strip manual (B ld) [Mass/Vol]on 06-18-2023 Glucose [Mass/Vol] 102 mg/dL High 74 - 99 mg/dL [facility] Interpretation and review of laboratory results Abnormal [facility] Glucose [Mass/Vol] 102 mg/dL High 74-99 [facility] Comment on above: Performed By: #### 2 341-6 ####ANDI Cotter ([id number])[facility] ([facility])[address] [place] [id number] Clinical Event Note-Discharg e discussionon 06-17-2023 Clinical Event Note-Discharge discussion Clinical Event: Clinical Event Note: TopicDischarge discussion Details I have discussed with the patient along with the nursing quarry supervisor open pit Kaylen in the patients room, regarding her concerns. She said that she doesn't trust me and she wanted to hear from GI team, about the further plan. GI fellow spoke to her over phone and answered her concerns and she was advised further out patient work up. The patient was in agreement with the plan. She got f/u with GI team and pain management. She agreed to go home in the morning. Chastity Kent MD. Electronic Signatures: Chastity León) (Signed 17-Jun-2023 19:26) Authored: Clinical Event Note Last Updated: 17-Jun-2023 19:26 by Chastity León) Normal [facility] C Reactive Protein, Serumon 06-16-2023 CRP [Mass/Vol] 0.86 mg/dL [facility] Comment on above: REF VALUE< 1.00 REF VALUE < 1.00 C-REACTIVE PROTEINon 023 C-REACTIVE PROTEIN 0.86 mg/dL Normal [facility] Comment on above: Result Comment: REF VALUE < 1.00 Performed By: #### C RP #### [facility] [id number] [place] [address] CBCon 06-16-2023 Erythrocyte distribution width (RBC) [Ratio] 13.6 % Normal 11.5 - 14.5 [facility] Comment on above: Reference Range: 11. 5 - 14.5 Performed By: #### C BC ####[id number] [place] [address] Hematocrit (Bld) [Volume fraction] 38.3 % Normal 36.0 - 46.0 [facility] Comment on above: Reference Range: 36. 0 - 46.0 Performed By: #### C BC ####[id number] [place] [address] Hemoglobin (Bld) [Mass/Vol] 12.2 g/dL Normal 12.0 - 16.0 [facility] Comment on above: Reference Range: 12. 0 - 16.0 Performed By: #### C BC ####[id number] [place] [address] MCHC (RBC) [Mass/Vol] 31.9 g/dL Low 32.0 - 36.0 [facility] Comment on above: Reference Range: 32. 0 - 36.0 Performed By: #### C BC ####[id number] [place] [address] MCV (RBC) [Entitic vol] 92 fL Normal 80 - 100 [facility] Comment on above: Performed By: #### C BC ####[id number] [place] [address] NUCLEATED RBC 0.0 /100 WBC Normal 0.0-0.0 [facility] Comment on above: Performed By: #### C BC ####[id number] [place] [address] Platelets (Bld) [#/Vol] 380 10*3/uL Normal 150 - 450 [facility] Comment on above: Performed By: #### C BC ####[id number] [place] [address] RBC 4.15 x10E12/L Normal 4.00 - 5.20 [facility] Comment on above: Performed By: #### C BC ####[id number] [place] [address] WBC (Bld) [#/Vol] 5.8 10*3/uL Normal 4.4 - 11.3 [facility] Comment on above: Performed By: #### C BC ####[id number] [place] [address] CBC panel Auto (Bld)on 06-16 Interpretation and review of laboratory results Abnormal [facility] Nucleated RBC/100 WBC (Bld) [Ratio] 0.0 % [facility] RBC (Bld) [#/Vol] 4.15 10*6/uL [facility] [facility] COMPREHENSIVE PANELon 2022 Albumin [Mass/Vol] 3.8 g/dL Normal 3.4 - 5.0 [facility] Comment on above: Performed By: #### E MRAD #### NO LOCATION NEEDED ALP [Catalytic activity/Vol] 65 U/L Normal 33 - 110 [facility] Comment on above: Performed By: #### E MRAD #### NO LOCATION NEEDED ALT [Catalytic activity/Vol] 41 U/L Normal 7 - 45 [facility] Comment on above: Result Comment: Evelyn ents treated with Sulfasalazine may generate falsely decreased results for ALT. Performed By: #### E MRAD #### NO LOCATION NEEDED Anion gap [Moles/Vol] 18 mmol/L Normal 10 - 20 [facility] Comment on above: Performed By: #### E MRAD #### NO LOCATION NEEDED AST [Catalytic activity/Vol] 28 U/L Normal 9 - 39 [facility] Comment on above: Performed By: #### E MRAD #### NO LOCATION NEEDED Bilirubin [Mass/Vol] 0.3 mg/dL Normal 0.0 - 1.2 [facility] Comment on above: Performed By: #### E MRAD #### NO LOCATION NEEDED Calcium [Mass/Vol] 8.9 mg/dL Normal 8.6 - 10.6 [facility] Comment on above: Performed By: #### E MRAD #### NO LOCATION NEEDED Chloride [Moles/Vol] 98 mmol/L Normal 98 - 107 [facility] Comment on above: Performed By: #### E MRAD #### NO LOCATION NEEDED Creatinine [Mass/Vol] 0.69 mg/dL Normal 0.50 - 1.05 [facility] Comment on above: Reference Range: 0.5 0 - 1.05 Performed By: #### E MRAD #### NO LOCATION NEEDED eGFR FEMALE >90 Normal >90 [facility] Comment on above: Result Comment: CALC ULATIONS OF ESTIMATED GFR ARE PERFORMED USING THE 2020 CKD-EPI STUDY REFIT EQUATION WITHOUT THE RACE VARIABLE FOR THE IDMS-TRACEABLE CREATININE METHODS. https://jasn.asnjournals.org/content/early/ASN.603308 5315 Performed By: #### E MRAD #### NO LOCATION NEEDED Glucose [Mass/Vol] 163 mg/dL High 74 - 99 [facility] Comment on above: Performed By: #### E MRAD #### NO LOCATION NEEDED HCO3 (Bld) [Moles/Vol] 26 mmol/L Normal 21 - 32 [facility] Comment on above: Performed By: #### E MRAD #### NO LOCATION NEEDED Potassium [Moles/Vol] 3.7 mmol/L Normal 3.5 - 5.3 [facility] Comment on above: Performed By: #### E MRAD #### NO LOCATION NEEDED Protein [Mass/Vol] 6.5 g/dL Normal 6.4 - 8.2 [facility] Comment on above: Performed By: #### E MRAD #### NO LOCATION NEEDED Sodium [Moles/Vol] 138 mmol/L Normal 136 - 145 [facility] Comment on above: Performed By: #### E MRAD #### NO LOCATION NEEDED Urea nitrogen [Mass/Vol] 14 mg/dL Normal 6 - 23 [facility] Comment on above: Performed By: #### E MRAD #### NO LOCATION NEEDED Clinical Event Note-Discharg e appealon 06-16-2023 Clinical Event Note-Discharge appeal Clinical Event: Clinical Event Note: TopicDischarge appeal Details Prior to placing discharge orders, I did discuss with the patient regarding the plan to f/u with pain management and going home on oral oxycodone as needed. I have further explained that she can f/u with GI clinic for further testing with MRCP for pancreatic changes found on CT abdomen. It was discussed with the consulting GI service and they were OK with the plan to perform MRCP as out patient. At the time the patient was counselled and she was in agreement with the discharge plan. I have placed the discharge orders as planned at 16.40 hrs. However I got a communication from charge nurse at 17.32 that the patient doesn't want to leave and she has appealed to medicare. The patient is clinically stable with normal labs and tolerating diet without issues so far, and she is stable for discharge from medical point of view. Chastity Kent MD. 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 Pain management was consulted for further medication recommendations and possible. She epigastric pain, wth radiation to her right back and right shoulder. She endorses the pain as similar to prior pancreatitis flares, but this is worse in severity. There is associated nausea, subjective fever, and a week of watery nonbloody stools, which she reports she often has with pancreatitis flares. Patient's had multiple admissions for acute on chronic abdominal pain for for his pancreatitis flares. she was evaluated outpatient pain management which point we recommended no increase in opioid therapy as well as possible interventions as well as ketamine infusions. Patient is set to have ketamine infusions starting next week. 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 OAARS reviewed. Overdose score 610 There are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 No abdominopelvic lymphadenopathy is present. BONES AND ABDOMINAL WALL: No suspicious osseous lesions are identified. The abdominal wall soft tissues appear normal. IMPRESSION: 1. Sequela of necrotizing pancreatitis. Hypodensity involving the lesser sac has increased and appears more organized than on the prior examination, raising suspicion for fat necrosis or developing pseudocyst. Continued attention on follow-up is recommended. 2. Interval increase in size of intra pancreatic and peripancreatic fluid collections suggesting walled-off necrosis. New fluid collection tracking along the inferior vena cava which may communicate inferiorly with additional peripancreatic fluid collections. 3. Interval increase in hepatomegaly. Hepatic steatosis again noted. I personally reviewed the images/study and I agree with the findings as stated. This study was interpreted at [facility], [place], [place]. MACRO: None Electronically signed by: YAHAIRA DELVALLE MD Normal [facility] C-REACTIVE PROTEINon 023 C-REACTIVE PROTEIN 0.91 mg/dL Normal [facility] Comment on above: Result Comment: REF VALUE < 1.00 Performed By: #### C #### [facility] [id number] [place] [address] C-Reactive Proteinon 023 CRP [Mass/Vol] 0.91 mg/dL [facility] Comment on above: REF VALUE < 1.00 CRP [Mass/Vol]on 06-15-20[address] [facility] [address] Abdomen and Pelvis W cont rast Prashant 06-15-2023 1. Sequela of necrotizing pancreatitis. Hypodensity involving the lesser sac has increased and appears more organized than on the prior examination, raising suspicion for fat necrosis or developing pseudocyst. Continued attention on follow-up is recommended. 2. Interval increase in size of intra pancreatic and peripancreatic fluid collections suggesting walled-off necrosis. New fluid collection tracking along the inferior vena cava which may communicate inferiorly with additional peripancreatic fluid collections. 3. Interval increase in hepatomegaly. Hepatic steatosis again noted. I personally reviewed the images/study and I agree with the findings as stated. This study was interpreted at [facility], [place], [place]. MACRO: [facility] [place] RADIOLOGY SYSTEM Interpreted By: YAHAIRA RUSSO MD and ERICK PENNY DO Patient Name: DOROTHEA RUTLEDGE STUDY: CT ABDOMEN AND PELVIS W IV CONTRAST; 06/15/2023 2:33 am INDICATION: epigastric pain h/o necrotizing pancreatitis, Lie Flat: Yes . COMPARISON: CT abdomen pelvis 05/12/2023 ACCESSION NUMBER(S): [id number] ORDERING CLINICIAN: ANGELA MILES TECHNIQUE: CT of the abdomen and pelvis was performed. Standard contiguous axial images were obtained at 3 mm slice thickness through the abdomen and pelvis. Coronal and sagittal reconstructions at 3 mm slice thickness were performed. 95 ml of contrast Omnipaque 350 were administered intravenously without immediate complication. FINDINGS: LOWER CHEST: Lingular and bibasilar atelectasis. Otherwise the visualized lung base is unremarkable. The heart is normal in size without pericardial effusion. No pleural effusion is present. Visualized distal esophagus appears normal. ABDOMEN: LIVER: The liver is enlarged measuring 23.3 cm in craniocaudal dimension, previously 21.5 cm and demonstrates diffusely decreased attenuation suggesting steatosis. Focal geographic region of relative hyperattenuation in hepatic segments 7 and 8 favored to represent focal fatty sparing. BILE DUCTS: Intrahepatic and extrahepatic bile ducts are prominent which is within normal limits given the status post cholecystectomy. GALLBLADDER: The gallbladder is surgically absent. PANCREAS: New fluid collection tracking along the intrahepatic inferior vena cava measuring 2.2 x 2.0 cm (series 201, image 25). Slight interval increase in size of region of hypoenhancement within the uncinate process now measuring 3.4 x 1.7 cm, previously 3.0 x 1.4 cm (series 201, image 63). Interval increase in size of fluid collection anterior to the portal vein measuring 4.4 x 3.8 cm, previously 3.9 x 2.9 cm (series 201, image 47). No significant interval change in size of fluid collection posterior to the portal vein measuring 3.9 x 3.0 cm (series 201, image 52). Pancreatic atrophy. Similar degree of peripancreatic fat stranding. No pancreatic ductal dilatation. SPLEEN: The spleen is normal in size without focal lesions. ADRENAL GLANDS: Bilateral adrenal glands appear normal. KIDNEYS AND URETERS: The kidneys are normal in size and enhance symmetrically. No hydroureteronephrosis or nephroureterolithiasis is identified. PELVIS: BLADDER: The urinary bladder appears normal without abnormal wall thickening. REPRODUCTIVE ORGANS: The uterus is surgically absent. BOWEL: Ill-defined hypodense collection versus fat stranding in the lesser sac, measuring approximately 5 x 1.9 cm appears larger and more organized than on the prior examination. The small and large bowel are normal in caliber and demonstrate no wall thickening. The appendix is not definitely visualized. There is however no pericecal stranding or fluid. VESSELS: There is no aneurysmal dilatation of the abdominal aorta. IVC filter again noted in stable position. PERITONEUM/RETROPERITON EUM/LYMPH NODES: No ascites or free air, no fluid collection. No abdominopelvic lymphadenopathy is present. BONES AND ABDOMINAL WALL: No suspicious osseous lesions are identified. The abdominal wall soft tissues appear normal. [facility] RADIOLOGY SYSTEM Yahaira Delvalle MD - 06/15/2023 Interpreted By: YAHAIRA DELVALLE MD and ERICK PENNY DO Patient Name: DOROTHEA RUTLEDGE STUDY: CT ABDOMEN AND PELVIS W IV CONTRAST; 06/15/2023 2:33 am INDICATION: epigastric pain h/o necrotizing pancreatitis, Lie Flat: Yes . COMPARISON: CT abdomen pelvis 05/12/2023 ACCESSION NUMBER(S): [id number] ORDERING CLINICIAN: ANGELA MILES TECHNIQUE: CT of the abdomen and pelvis was performed. Standard contiguous axial images were obtained at 3 mm slice thickness through the abdomen and pelvis. Coronal and sagittal reconstructions at 3 mm slice thickness were performed. 95 ml of contrast Omnipaque 350 were administered intravenously without immediate complication. FINDINGS: LOWER CHEST: Lingular and bibasilar atelectasis. Otherwise the visualized lung base is unremarkable. The heart is normal in size without pericardial effusion. No pleural effusion is present. Visualized distal esophagus appears normal. ABDOMEN: LIVER: The liver is enlarged measuring 23.3 cm in craniocaudal dimension, previously 21.5 cm and demonstrates diffusely decreased attenuation suggesting steatosis. Focal geographic region of relative hyperattenuation in hepatic segments 7 and 8 favored to represent focal fatty sparing. BILE DUCTS: Intrahepatic and extrahepatic bile ducts are prominent which is within normal limits given the status post cholecystectomy. GALLBLADDER: The gallbladder is surgically absent. PANCREAS: New fluid collection tracking along the intrahepatic inferior vena cava measuring 2.2 x 2.0 cm (series 201, image 25). Slight interval increase in size of region of hypoenhancement within the uncinate process now measuring 3.4 x 1.7 cm, previously 3.0 x 1.4 cm (series 201, image 63). Interval increase in size of fluid collection anterior to the portal vein measuring 4.4 x 3.8 cm, previously 3.9 x 2.9 cm (series 201, image 47). No significant interval change in size of fluid collection posterior to the portal vein measuring 3.9 x 3.0 cm (series 201, image 52). Pancreatic atrophy. Similar degree of peripancreatic fat stranding. No pancreatic ductal dilatation. SPLEEN: The spleen is normal in size without focal lesions. ADRENAL GLANDS: Bilateral adrenal glands appear normal. KIDNEYS AND URETERS: The kidneys are normal in size and enhance symmetrically. No hydroureteronephrosis or nephroureterolithiasis is identified. PELVIS: BLADDER: The urinary bladder appears normal without abnormal wall thickening. REPRODUCTIVE ORGANS: The uterus is surgically absent. BOWEL: Ill-defined hypodense collection versus fat stranding in the lesser sac, measuring approximately 5 x 1.9 cm appears larger and more organized than on the prior examination. The small and large bowel are normal in caliber and demonstrate no wall thickening. The appendix is not definitely visualized. There is however no pericecal stranding or fluid. VESSELS: There is no aneurysmal dilatation of the abdominal aorta. IVC filter again noted in stable position. PERITONEUM/RETROPERITON EUM/LYMPH NODES: No ascites or free air, no fluid collection. No abdominopelvic lymphadenopathy is present. BONES AND ABDOMINAL WALL: No suspicious osseous lesions are identified. The abdominal wall soft tissues appear normal. IMPRESSION: 1. Sequela of necrotizing pancreatitis. Hypodensity involving the lesser sac has increased and appears more organized than on the prior examination, raising suspicion for fat necrosis or developing pseudocyst. Continued attention on follow-up is recommended. 2. Interval increase in size of intra pancreatic and peripancreatic fluid collections suggesting walled-off necrosis. New fluid collection tracking along the inferior vena cava which may communicate inferiorly with additional peripancreatic fluid collections. 3. Interval increase in hepatomegaly. Hepatic steatosis again noted. I personally reviewed the images/study and I agree with the findings as stated. This study was interpreted at [facility], [place], [place]. MACRO: None [facility] Work Phone: Radiology Study observation (narrative) [facility] Work Phone: CT Abdomen and Pelvis W cont rast IVOrdered By: Yahaira Delvalle on 06-15-2023 [facility] Work Phone: CT Abdomen and Pelvis with I V Contraston 06-15-2023 CT Abdomen and Pelvis W contrast IV Normal [facility] Work Phone: Clinical Event Note-GI consu lt noteon 06-15-2023 Clinical Event Note-GI consult note Clinical Event: Clinical Event Note: TopicGI consult note Details GI was consulted for worsening fluid collections of necrotizing pancreatitis. Possible ERCP/EUS during the course, therefore required off AC for ~48 hours. If clinically necessary, would transit to heparin gtt. Full note to follow tomorrow. Thank you for the consult, GI will continue to follow. Please page GI consult pager [phone] for any questions during the daytime/weekdays, and the GI call pager, [phone] after 5pm and on weekends/holidays. Electronic Signatures: Sapna Hernandez ( (Fellow)) (Signed 15-Jun-2023 23:29) Authored: Clinical Event Note Last Updated: 15-Jun-2023 23:29 by Sapna Hernandez ( (Fellow)) Normal [facility] DRUG SCREEN,URINEon 06-15-20 23 AMPHETAMINE SCREEN,U Negative Normal NEGATIVE [facility] Comment on above: Result Comment: CUTO FF LEVEL: 500 NG/ML Cross-reactivity has been reported with high concentrations of the following drugs: buproprion, chloroquine, chlorpromazine, ephedrine, mephentermine, fenfluramine, phentermine, phenylpropanolamine, pseudoephedrine, and propranolol. Performed By: #### E MRAD #### NO LOCATION NEEDED BARBITURATES SCREEN,U Negative Normal NEGATIVE [facility] Comment on above: Result Comment: CUTO FF LEVEL: 200 NG/ML Performed By: #### E MRAD #### NO LOCATION NEEDED BENZODIAZEPINES SCREEN,U Negative Normal NEGATIVE [facility] Comment on above: Result Comment: CUTO FF LEVEL: 200 NG/ML Performed By: #### E MRAD #### NO LOCATION NEEDED CANNABINOIDS SCREEN,U Negative Normal NEGATIVE [facility] Comment on above: Result Comment: CUTO FF LEVEL: 50 NG/ML Performed By: #### E MRAD #### NO LOCATION NEEDED COCAINE METABOLITE SCREEN,U Negative Normal NEGATIVE [facility] Comment on above: Result Comment: CUTO FF LEVEL: 150 NG/ML Performed By: #### E MRAD #### NO LOCATION NEEDED DRUG SCREEN COMMENT SEE BELOW Normal [facility], [place] Comment on above: Result Comment: Drug screen results are presumptive and should not be used to assess compliance with prescribed medication. Contact the performing [facility] laboratory to add-on definitive confirmatory testing if clinically indicated. . Toxicology screening results are reported qualitatively. The concentration must be greater than or equal to the cutoff to be reported as positive. The concentration at which the screening test can detect an individual drug or metabolite varies. The absence of expected drug(s) and/or drug metabolite(s) may indicate non-compliance, inappropriate timing of specimen collection relative to drug administration, poor drug absorption, diluted/adulterated urine, or limitations of testing. For medical purposes only; not valid for forensic use. . Interpretive questions should be directed to the laboratory medical directors. Performed By: #### E MRAD #### NO LOCATION NEEDED FENTANYL SCREEN,URINE Negative Normal NEGATIVE [facility] Comment on above: Result Comment: CUTO FF LEVEL: 5 NG/ML Performed By: #### E MRAD #### NO LOCATION NEEDED OPIATES SCREEN,U Positive Abnormal NEGATIVE [facility] Comment on above: Result Comment: CUTO FF LEVEL: 300 NG/ML The opiate screen does not detect fentanyl, meperidine, or tramadol. Oxycodone is not consistently detected (refer to Oxycodone Screen, Urine result). Performed By: #### E MRAD #### NO LOCATION NEEDED OXYCODONE SCREEN,U Negative Normal NEGATIVE [facility] Comment on above: Result Comment: CUTO FF LEVEL: 100 NG/ML This test will accurately detect both oxycodone and oxymorphone. Performed By: #### E MRAD #### NO LOCATION NEEDED PCP SCREEN,U Negative Normal NEGATIVE [facility] Comment on above: Result Comment: CUTO FF LEVEL: 25 NG/ML Cross-reactivity has been reported with dextromethorphan. Performed By: #### E MRAD #### NO LOCATION NEEDED Amphetamines Screen Ql (U) Negative NEGATIVE [facility] Comment on above: CUTOFF LEVEL: 500 NG /ML Cross-reactivity has been reported with high concentrations of the following drugs: buproprion, chloroquine, chlorpromazine, ephedrine, mephentermine, fenfluramine, phentermine, phenylpropanolamine, pseudoephedrine, and propranolol. Barbiturates Screen Ql (U) Negative NEGATIVE [facility] Comment on above: CUTOFF LEVEL: 200 NG /ML BENZODIAZEPINE (PRESENCE) IN URINE BY SCREEN METHOD Negative NEGATIVE [facility] Comment on above: CUTOFF LEVEL: 200 NG /ML Cannabinoids Screen Ql (U) Negative NEGATIVE [facility] Comment on above: CUTOFF LEVEL: 50 NG/ ML Cocaine Ql (U) Negative NEGATIVE [facility] Comment on above: CUTOFF LEVEL: 150 NG /ML DRUG SCREEN COMMENT URINE SEE BELOW [facility] Comment on above: Drug screen results are presumptive and should not be used to assess compliance with prescribed medication. Contact the performing [facility] laboratory to add-on definitive confirmatory testing if clinically indicated. . Toxicology screening results are reported qualitatively. The concentration must be greater than or equal to the cutoff to be reported as positive. The concentration at which the screening test can detect an individual drug or metabolite varies. The absence of expected drug(s) and/or drug metabolite(s) may indicate non-compliance, inappropriate timing of specimen collection relative to drug administration, poor drug absorption, diluted/adulterated urine, or limitations of testing. For medical purposes only; not valid for forensic use. . Interpretive questions should be directed to the laboratory medical directors. fentaNYL+Norfentanyl Screen Ql (U) Negative NEGATIVE [facility] Comment on above: CUTOFF LEVEL: 5 NG/M L Interpretation and review of laboratory results Abnormal [facility] Opiates Screen Ql (U) Positive Abnormal NEGATIVE [facility] Comment on above: CUTOFF LEVEL: 300 NG /ML The opiate screen does not detect fentanyl, meperidine, or tramadol. Oxycodone is not consistently detected (refer to Oxycodone Screen, Urine result). oxyCODONE+oxyMORphone Screen Ql (U) Negative NEGATIVE [facility] Comment on above: CUTOFF LEVEL: 100 NG /ML This test will accurately detect both oxycodone and oxymorphone. Phencyclidine Ql (U) Negative NEGATIVE [facility] Comment on above: CUTOFF LEVEL: 25 NG/ ML Cross-reactivity has been reported with dextromethorphan. [facility] Discharge Planning [id number] 06-15-2023 Discharge Planning Note2 Discharge Planning: Discharge Barriersnone Planned Dispositionhome Discharge Destinationhome AMPAC < 20no Anticipated Discharge [id number] Discharge Planning 06/15/23 1121 Transitional Care Coordination Progress Note: Patient discussed during interdisciplinary rounds. Team members present: CARINA VASQUEZ Plan per Medical/Surgical team: chronic pancreatitis Discharge disposition: home Status-Inpatient Payer-[employer] Gold Choice Potential Barriers: none ADOD: today vs tomorrow Met with patient at bedside, provided introduction of self and role. Patient states she lives at home with her boyfriend. Patient independent for adls, no assistive devices. Patient denies recent falls; safe at home. Patient states she is not active with a homecare agency. Patient states her family provides transport to appointments, no concerns obtaining/affording medications. Patient states no social/financial concerns. Patient states her mother will provide transport home at time of discharge. Will continue to monitor for discharge planning needs. Molly Powell RN, TCC (doc halo) Assessment: Discharge Planning Assessment [id number] Discharge Planning Assessment Completed byMolly Powell RN, TCC Primary Contact Name and NumberLizz Dockery (mother) [phone] Prior Level of FunctioningIndependent Lives Withsignificant other(1) Living Arrangementshouse(1) Stated Reason for Admissioninflamed cyst on pancreas(1) Arrived Fromemergency department PCPCj Rivera NP [place] Recent Falls/ Injury/ Need Assist with AmbulationDenies recent falls; no assistive devices DME Supplier Name/NumberNA Home Care Agency/Support ServicesNA Diabetic/Supplies NeededNA Hemodialysis ScheduleNA Resource/Environmental Concernsnone(1) Anticipated Transition Tohome(1) Services Anticipated at Transitionnone Readmission Within the Last 30 Daysno previous admission in last 30 days PCP Last Date Seenlast week InsuranceHumana Gold Choice; Medicaid Anticipated Changes Related to Illnessnone Equipment Needed After Dischargenone Anticipated Discharge Facility/Level of Care Needs.Home Social Determinants of Health IdentifiedNone Special ConsiderationsNA Transportation Home Who/Howmother to provide transport Medication Adherence/Afford/Obtain yes O2 LPMNA Home O2 SupplierNA Electronic Signatures: Molly Powell (KAY) (Signed 15-Jun-2023 11:26) Authored: Discharge Planning, Assessment Last Updated: 15-Jun-2023 11:26 by Molly Powell (KAY) References: 1. Data Referenced From Patient Profile - Adult v2 15-Jun-2023 04:21 Normal [facility] EMR ADDONon 06-15-2023 ADDON CONFIRMATION REQUEST REC'D Normal [facility] Comment on above: Performed By: #### E MRAD #### NO LOCATION NEEDED Electrocardiogram 12 LeadOrd ered By: Zofia Young on 06-15-2023 Atrial Rate 87 BPM [facility] Work Phone: P [place] 50 degrees [facility] Work Phone: P Offset 201 ms [facility] Work Phone: P Onset 149 ms [facility] Work Phone: DC Interval 148 ms [facility] Work Phone: Q Onset 223 ms [facility] Work Phone: QRS Count 14 beats [facility] Work Phone: QRS Duration 88 ms [facility] Work Phone: QT Interval 378 ms [facility] Work Phone: QTC Calculation(Bazett) 454 [facility] Work Phone: QTC Fredericia 427 ms [facility] Work Phone: R [place] 6 degrees [facility] Work Phone: T [place] 32 degrees [facility] Work Phone: T Offset 412 ms [facility] Work Phone: Ventricular Rate 87 BPM [facility] Work Phone: [facility] Work Phone: Electrocardiogram 12 Leadon 06-15-2023 Confirmed by Zofia Young ([id number]) on 06/15/2023 2:07:55 AM [place] Zofia Young APRN- [facility] - 06/15/2023 Confirmed by Zofia Young ([id number]) on 06/15/2023 2:07:55 AM [facility] Work Phone: Laboratory - Drug toxicology on 06-15-2023 Amphetamines Screen Ql (U) Negative NEGATIVE [facility] Work Phone: Comment on above: CUTOFF LEVEL: 500 NG /ML Cross-reactivity has been reported with high concentrations of the following drugs: buproprion, chloroquine, chlorpromazine, ephedrine, mephentermine, fenfluramine, phentermine, phenylpropanolamine, pseudoephedrine, and propranolol. Barbiturates Screen Ql (U) Negative NEGATIVE [facility] Work Phone: Comment on above: CUTOFF LEVEL: 200 NG /ML Benzodiazepines Ql (U) Negative NEGATIVE [facility] Work Phone: Comment on above: CUTOFF LEVEL: 200 NG /ML Benzoylecgonine Screen Ql (U) Negative NEGATIVE [facility] Work Phone: Comment on above: CUTOFF LEVEL: 150 NG /ML Cannabinoids Screen Ql (U) Negative NEGATIVE [facility] Work Phone: Comment on above: CUTOFF LEVEL: 50 NG/ ML Opiates Screen Ql (U) Positive Abnormal NEGATIVE [facility] Work Phone: Comment on above: CUTOFF LEVEL: 300 NG /ML The opiate screen does not detect fentanyl, meperidine, or tramadol. Oxycodone is not consistently detected (refer to Oxycodone Screen, Urine result). oxyCODONE+oxyMORphone Screen Ql (U) Negative NEGATIVE [facility] Work Phone: Comment on above: CUTOFF LEVEL: 100 NG /ML This test will accurately detect both oxycodone and oxymorphone. Phencyclidine Ql (U) Negative NEGATIVE [facility] Work Phone: Comment on above: CUTOFF LEVEL: 25 NG/ ML Cross-reactivity has been reported with dextromethorphan. No Panel Informationon 06-15 SEE BELOW [facility] Work Phone: Comment on above: Drug screen results are presumptive and should not be used to assess compliance with prescribed medication. Contact the performing [facility] laboratory to add-on definitive confirmatory testing if clinically indicated. .Toxicology screening results are reported qualitatively. The concentration must be greater than or equal to the cutoff to be reported as positive. The concentration at which the screening test can detect an individual drug or metabolite varies. The absence of expected drug(s) and/or drug metabolite(s) may indicate non-compliance, inappropriate timing of specimen collection relative to drug administration, poor drug absorption, diluted/adulterated urine, or limitations of testing. For medical purposes only; not valid for forensic use. .Interpretive questions should be directed to the laboratory medical directors. Order Reconciliationon 06-15 Order Reconciliation Page 1 Admission Reconciliation Document Reconciliation Type: ED to Observation requested on behalf of Nancy Benedict (Advanced Practice Nurse-Admit) done by Nancy Benedict ([facility]) ED to Observation - Reconciliation: 15-Jun-2023 05:51 by: Nancy Benedict ([facility]) ED to Observation - AutoLinked: 15-Jun-2023 05:51 by: Nancy Benedict (EMERGENCY PLANNING AND RESPONSE MANAGER-[facility]) Home MedicationsEnteredLast Dose TakenReconciled with current Order Reconciliation Comment/ Additional Information Abilify 10 mg oral tablet 1 tab(s) orally once a day 15-Jun-2023 NoLongerTaking acetaminophen 500 mg oral tablet 2 tab(s) orally every 8 hours, As Needed for [id number] Acetaminophen Tablet (TYLENOL)DOSE = 975 mg Oral Every 8 Hours, PRN Pain - Mild (1-3)acetaminophen 500 mg oral tablet continued as the inpatient order Acetaminophen ARIPiprazole 10 mg oral tablet 1 tab(s) orally once a day for Mood / Psychosis 15-Jun-2023 ARIPiprazole Tablet (ABILIFY)DOSE = 10 mg Oral Daily ARIPiprazole 10 mg oral tablet continued as the inpatient order ARIPiprazole ascorbic acid 1000 mg oral tablet 1 tab(s) orally once a [id number] Reviewed and Held benzonatate 100 mg oral capsule 1 cap(s) orally 3 times a [id number] Reviewed and Held benztropine 0.5 mg oral tablet 1 tab(s) orally once a day (at bedtime), As Needed for [id number] Reviewed and Held cholecalciferol 1250 mcg (50,000 intl units) oral capsule 1 cap(s) orally once a week on Reviewed and Held cloNIDine 0.2 mg oral tablet 1 tab(s) orally once a [id number] cloNIDine (CATAPRES) TabletDOSE = 0.2 mg Oral DailycloNIDine 0.2 mg oral tablet continued as the inpatient order cloNIDine (CATAPRES) Cogentin orally 2 times a [id number] Reviewed and Held Depakote 250 mg oral delayed release tablet 1 tab(s) orally 2 times a day 15-Jun-2023 Divalproex Sodium Del Rel (Depakote) Enteric Coated TabletDOSE = 250 mg Oral 2 Times a DayDepakote 250 mg oral delayed release tablet continued as the inpatient order Divalproex Sodium Del Rel (Depakote) diphenhydrAMINE 25 mg oral tablet 3 tab(s) orally once a day (at bedtime), As Needed - for allergy -[id number] diphenhydrAMINE Capsule (BENADRYL)DOSE = 25 mg Oral Every 4 Hours, PRN Allergy SymptomsdiphenhydrAMINE 25 mg oral tablet continued as the inpatient order diphenhydrAMINE Effexor 225 milligram(s) orally once a [id number]-[id number]-3835 Venlafaxine Extended Release Capsule, Extended Release (EFFEXOR XR)DOSE = 225 mg Oral DailyEffexor continued as the inpatient order Venlafaxine Extended Release fenofibrate 145 mg oral tablet 1 tab(s) orally once a ovp81-[id number] Fenofibrate Tablet (LOFIBRA)DOSE = 160 mg Oral DailyNotes from Pharmacy: Substitution for Fenofibrate 145 mg Capsule Dailyfenofibrate 145 mg oral tablet continued as the inpatient order Fenofibrate furosemide 40 mg oral tablet 1 tab(s) orally once a oja88-[id number]-0646 Furosemide Tablet (LASIX)DOSE = 40 mg Oral Dailyfurosemide 40 mg oral tablet continued as the inpatient order Furosemide hydroCHLOROthiazide 25 mg oral tablet 1 tab(s) orally once a [id number]-Cvo-2778 hydroCHLOROthiazide Tablet (ESIDRIX)DOSE = 25 mg Oral Daily hydroCHLOROthiazide 25 mg oral tablet continued as the inpatient order hydroCHLOROthiazide lacosamide 100 mg oral tablet take 1 tablet by mouth once in the morning and 2 tablets in the drehnap89-Lcq-3009 Lacosamide Tablet (VIMPAT)DOSE = 200 mg Oral Every Nightlacosamide 100 mg oral tablet continued as the inpatient order Lacosamide; lacosamide 100 mg oral tablet continued as the inpatient order Lacosamide lacosamide 100 mg oral tablet take 1 tablet by mouth once in the morning and 2 tablets in the [id number]-Gci-7465 Lacosamide Tablet (VIMPAT)DOSE = 100 mg Oral Every Morninglacosamide 100 mg oral tablet continued as the inpatient order Lacosamide; lacosamide 100 mg oral tablet continued as the inpatient order Lacosamide lactulose 10 g/15 mL oral syrup 15 milliliter(s) orally 2 times a day, As Needed - for [id number] Reviewed and Held Lasix 40 mg oral tablet 1 tab(s) orally once a day 15-Jun-2023 NoLongerTaking Linzess 290 mcg oral capsule 1 cap(s) orally once a nyv44-Amk-2445 Linaclotide Capsule (LINZESS)DOSE = 290 microgram(s) Oral DailyLinzess 290 mcg oral capsule continued as the inpatient order Linaclotide Macrobid 100 mg oral capsule 1 cap(s) orally 2 times a day, As Needed 15-Jun-2023 Held and Reconciled, Review at Next Reconciliation magnesium glycinate 15-Jun-2023 Reviewed and Held Melatonin 10 mg oral tablet 1 tab(s) orally once a day (at bedtime), As Needed - for sleep / [id number]-8875 Reviewed and Held menthol-benzocaine 3.6 mg-15 mg mucous membrane lozenge mucous membrane 15-Jun-2023 Reviewed and Held methenamine hippurate 1 g oral tablet 1 tab(s) orally once a [id number]-Agp-5651 Held and Reconciled, Review at Next Reconciliation metopr (more content not included)... Normal [facility] Patient Profile - Adult v2on 06-15-2023 Patient Profile - Adult v2 Profile: Initial Info: How to be AddressedAmanda(1) Spoken Language PreferredEnglish (1) Stated Reason for Admissioninflamed cyst on pancreas Wants Family/Rep Notified of Admissionyes, primary contact Notify PCPnotify PCP Informed of Patient Visiting Rightsyes [place] Employment Statusemployed(1) Patient Belongingsremains with patient Medications Brought to Hospitalno General Health: Blood Avoidance/Restrictionsn one(1) Weight in kg96 kilogram(s)(2) Weight in use796.6 pound(s) Weight Methodestimated Scale Typebed Height in cm159.9 centimeter(s)(2) Height in feet5 feet Height in inches2.99 inch(es) Height Methodestimated BMI (kg/m2)37.546 square meter RSP Based Care: How would you like to participate in your carestay updated and informed What is the number one concern for you during this hospitalizationpain control What is the most important thing we can do to support you during this hospitalizationpain and nausea control Is there anything we need to know to best care for tammie/a Substance: Smoking Statuslight user (uses <10 cig/day, OR <0.5 ppd, OR 1 can/pouch loose leaf tobacco per week, OR <0.5 vape pods per day) Tobacco Cessation Education (provide if tobacco use within the last 12 mos)yes vape pen Substance Commentvape pen Health Mgmt: Symptoms/Conditions Managed at Homebehavioral health; neurological; chronic pain; hematologic Are You no (3) Are You Currently Breastfeedingno (3) Behavioral Health Symptoms/Conditionsanxi ety; depression Behavioral Health Managementmanaged Hematologic Symptoms/Conditionsfact or V Hematologic Managementmanaged Neurological Symptoms/Conditionsstro ke; seizures Neurological Managementmanaged Chronic Pain Locationpancreas Chronic Pain Management Strategiesadequate rest; medication therapy Chronic Pain Managementnot managed Relationship/Environ: Resource/Environmental Concernsnone Primary Source of Support/Comfortextended family; significant other; pet Lives Withsignificant other Living Arrangementshouse Services Anticipated at Transitioncase manager research development Anticipated Transition Tob[place]ye Significant IndicatorsComplete Information Review: Allergies, Home Meds and Significant Events have been Reviewed and Verified with Patient/Familyyes ALLERGY, INTOLERANCE, ADVERSE EVENT: Allergies: penicillin: Drug, Rash, Active Neurontin: Drug, Swelling/Edema, Active sulfa drugs: Drug Category, Rash, Active Electronic Signatures: Nasreen Fernández) (Signed 15-Jun-2023 04:27) Authored: Initial Info, General Health, RSP Based Care, Substance, Health Mgmt, Relationship/Environ, Additional Information Last Updated: 15-Jun-2023 04:27 by Nasreen Fernández (KAY) References: 1. Data Referenced From Patient Profile - Adult v2 13-May-2023 00:04 2. Data Referenced From 1. Vital Signs 14-Jun-2023 14:34 3. Data Referenced From Triage - ED 14-Jun-2023 14:34 Normal [facility] Provider Note - ED Care Castellanos sitionon 06-15-2023 Provider Note - ED Care Transition ED Care Transition: Chart Review: ED NOTES ED NOTES: Received this patient in signout at 0200. Please see previous provider's note for detailed H&P. Briefly, this is a 47-year-old female with PMH of hypertension, factor V Leiden, DVT on Xarelto, seizures, known necrotizing pancreatitis presenting today with acute onset abdominal pain and nausea that feels similar to prior pancreatitis flares. Patient has been followed by GI for known pancreatic cysts which have currently been conservatively managed but are under continued observation. Patient treated with IV Dilaudid and required multiple repeat doses for symptomatic control, labs all grossly unremarkable. Handoff to me pending CT abdomen pelvis to evaluate for pseudocyst formation or further complication. Under my care CT imaging showing sequela of known necrotizing pancreatitis however hypodensity involving the lesser sac has increased in size and appears more organized than on prior examination raising some suspicion for fat necrosis or developing pseudocyst as well as some interval increase in size of intrapancreatic and peripancreatic fluid collections with a new fluid collection tracking along the IVC. Patient required additional dose of IV dilaudid for pain control and was tx with IVF. Discussed with admission coordinator and to be admitted for further symptomatic control. May benefit from further evaluation by GI given increasing size of fluid collections and developing pseudocyst formation. Pt seen and discussed with Dr. Ric Grace DO EM PGY2 CLINICAL IMPRESSION Diagnosis/Annotation: ED Dx Name:Abdominal pain Code:R10.9 Name:Pancreatitis Code:K85.90 Disposition: hospitalized Admit to: [facility]. Admitting Considerations: Condition on Disposition: stable ATTESTATION Attestation: I reviewed the resident/fellows documentation and discussed the patient with the resident/fellow. I agree with the resident/fellows medical decision making as documented in the residents note CRITICAL CARE TIME Is this a critically ill patient: no Electronic Signatures: Camilo Larios) (Signed 16-Jun-2023 05:21) Authored: Attestation, Chart Review Co-Signer: ED Notes, Clinical Impression, Attestation, Chart Review, Scores Maureen Grace (DO (Resident)) (Signed 15-Jun-2023 03:38) Authored: ED Notes, Clinical Impression, Attestation, Chart Review, Scores Last Updated: 16-Jun-2023 05:21 by Camilo Larios) Normal [facility] URINALYSISon 06-15-2023 Appearance (U) CLEAR Normal CLEAR [facility] Comment on above: Performed By: #### U A ####[id number] [place] [address] Bilirubin Ql (U) Negative Normal NEGATIVE [facility] Comment on above: Performed By: #### U A ####[id number] [place] [address] Color (U) YELLOW Normal STRAW,YELLOW [facility] Comment on above: Performed By: #### U A ####[id number] [place] [address] Glucose Ql (U) Negative Normal NEGATIVE [facility] Comment on above: Performed By: #### U A ####[id number] [place] [address] Hemoglobin Ql (U) Negative Normal NEGATIVE [facility] Comment on above: Performed By: #### U A ####[id number] [place] [address] Ketones Ql (U) Negative Normal NEGATIVE [facility] Comment on above: Performed By: #### U A ####[id number] [place] [address] Leukocyte esterase Test strip Ql (U) Negative Normal NEGATIVE [facility] Comment on above: Performed By: #### U A ####[id number] [place] [address] Nitrite Ql (U) Negative Normal NEGATIVE [facility] Comment on above: Performed By: #### U A ####[id number] [place] [address] pH (U) 6.0 [pH] Normal 5.0 - 8.0 [facility] Comment on above: Performed By: #### U A ####[id number] [place] [address] Protein Ql (U) Negative Normal NEGATIVE [facility] Comment on above: Performed By: #### U A ####[id number] [place] [address] Specific gravity (U) [Rel density] >1.060 Abnormal 1.005 - 1.035 [facility] Comment on above: Specific gravity of >1.060 may be falsely elevated due to interferences with measurement. If clinically indicated, repeat testing with an alternative method is available by contacting the laboratory within 24 hours. Result Comment: [facility] gravity of >1.060 may be falsely elevated due to interferences with measurement. If clinically indicated, repeat testing with an alternative method is available by contacting the laboratory within 24 hours. Performed By: #### U A ####[id number] [place] [address] Urobilinogen (U) [Mass/Vol] mg/dL Normal 0.0 - 1.9 [facility] Comment on above: Performed By: #### U A ####[id number] [place] [address] Urinalysison 06-15-2023 Color (U) YELLOW See Below [facility] Work Phone: Comment on above: Reference Range: STR AW,YELLOW Glucose Ql (U) Negative NEGATIVE [facility] Work Phone: Ketones Ql (U) Negative NEGATIVE [facility] Work Phone: Leukocyte esterase Test strip Ql (U) Negative NEGATIVE [facility] Work Phone: pH (U) 6.0 [pH] 5.0 - 8.0 [facility] Work Phone: Protein (U) [Mass/Vol] Negative NEGATIVE [facility] Work Phone: RBC (U) [#/Vol] Negative NEGATIVE [facility] Work Phone: Specific gravity (U) [Rel density] >1.060 Abnormal See Below [facility] Work Phone: Comment on above: Reference Range: 1.0 05 - 1.035 Specific gravity of >1.060 may be falsely elevated due to interferences with measurement. If clinically indicated, repeat testing with an alternative method is available by contacting the laboratory within 24 hours. Urinalysis Negative NEGATIVE [facility] Work Phone: Comment on above: CUTOFF LEVEL: 5 NG/M L Urinalysis <2.0 0.0 - 1.9 [facility] Work Phone: Urinalysis CLEAR CLEAR [facility] Work Phone: Urinalysis complete panel (U )on 06-15-2023 Bilirubin (U) [Mass/Vol] Negative NEGATIVE [facility] Glucose Auto test strip (U) [Mass/Vol] Negative NEGATIVE mg/dL [facility] Interpretation and review of laboratory results Abnormal [facility] Ketones (U) [Mass/Vol] Negative NEGATIVE mg/dL [facility] Leukocyte esterase Auto test strip Ql (U) Negative NEGATIVE [facility] Nitrite Auto test strip Ql (U) Negative NEGATIVE [facility] Protein (U) [Mass/Vol] Negative NEGATIVE mg/dL [facility] RBC (U) [#/Vol] Negative NEGATIVE [facility] C Reactive Protein, Serumon 06-14-2023 CRP [Mass/Vol] 0.91 mg/dL [facility] Work Phone: Comment on above: REF VALUE< 1.00 CBC AND DIFFERENTIALon 06-14 % AUTOMATED IMMATURE GRAN 0.5 % Normal 0.0 - 0.9 [facility] Comment on above: Result Comment: Debbie ture Granulocyte Count (IG) includes promyelocytes, myelocytes and metamyelocytes but does not include bands. Percent differential counts (%) should be interpreted in the context of the absolute cell counts (cells/L). Performed By: #### C BCDF #### [facility] [id number] [place] [address] Basophils (Bld) [#/Vol] 0.06 10*3/uL Normal 0.00 - 0.10 [facility] Comment on above: Performed By: #### C BCDF #### [facility] [address] [place] [address] Basophils/100 WBC (Bld) 0.7 % Normal 0.0 - 2.0 [facility] Comment on above: Performed By: #### C BCDF #### [facility] [address] [place] [address] Eosinophils (Bld) [#/Vol] 0.28 10*3/uL Normal 0.00 - 0.70 [facility] Comment on above: Performed By: #### C BCDF #### [facility] [address] [place] [address] Eosinophils/100 WBC (Bld) 3.2 % Normal 0.0 - 6.0 [facility] Comment on above: Performed By: #### C BCDF #### [facility] [address] [place] [address] Erythrocyte distribution width (RBC) [Ratio] 13.2 % Normal 11.5 - 14.5 [facility] Comment on above: Performed By: #### C BCDF #### [facility] [address] [place] [address] Hematocrit (Bld) [Volume fraction] 36.0 % Normal 36.0 - 46.0 [facility] Comment on above: Performed By: #### C BCDF #### [facility] [address] [place] [address] Hemoglobin (Bld) [Mass/Vol] 11.9 g/dL Low 12.0 - 16.0 [facility] Comment on above: Performed By: #### C BCDF #### [facility] [address] [place] [address] Lymphocytes (Bld) [#/Vol] 2.09 10*3/uL Normal 1.20 - 4.80 [facility] Comment on above: Performed By: #### C BCDF #### [facility] [address] [place] [address] Lymphocytes/100 WBC (Bld) 23.8 % Normal 13.0 - 44.0 [facility] Comment on above: Performed By: #### C BCDF #### [facility] [address] [place] [address] MCHC (RBC) [Mass/Vol] 33.1 g/dL Normal 32.0 - 36.0 [facility] Comment on above: Performed By: #### C BCDF #### [facility] [address] [place] [address] MCV (RBC) [Entitic vol] 89 fL Normal 80 - 100 [facility] Comment on above: Performed By: #### C BCDF #### [facility] [address] [place] [address] Monocytes (Bld) [#/Vol] 0.58 10*3/uL Normal 0.10 - 1.00 [facility] Comment on above: Performed By: #### C BCDF #### [facility] [address] [place] [address] Monocytes/100 WBC (Bld) 6.6 % Normal 2.0 - 10.0 [facility] Comment on above: Performed By: #### C BCDF #### [facility] [address] [place] [address] Neutrophils (Bld) [#/Vol] 5.72 10*3/uL Normal 1.20 - 7.70 [facility] Comment on above: Performed By: #### C BCDF #### [facility] [address] [place] [address] Neutrophils/100 WBC (Bld) 65.2 % Normal 40.0 - 80.0 [facility] Comment on above: Performed By: #### C BCDF #### [facility] [address] [place] [address] NUCLEATED RBC 0.0 /100 WBC Normal 0.0-0.0 [facility] Comment on above: Performed By: #### C BCDF #### [place] [address] [place] [address] Platelets (Bld) [#/Vol] 408 10*3/uL Normal 150 - 450 [facility] Comment on above: Performed By: #### C BCDF #### [place] [address] [place] [address] RBC 4.06 x10E12/L Normal 4.00 - 5.20 [facility] Comment on above: Performed By: #### C BCDF #### [place] [address] [place] [address] WBC (Bld) [#/Vol] 8.8 10*3/uL Normal 4.4 - 11.3 [facility] Comment on above: Performed By: #### C BCDF #### [facility] [address] [place] [address] CBC W Auto Differential pane l (Bld)on 06-14-2023 Immature granulocytes/100 WBC (Bld) 0.5 % 0.0 - 0.9 % [facility] Comment on above: Immature Granulocyte Count (IG) includes promyelocytes, myelocytes and metamyelocytes but does not include bands. Percent differential counts (%) should be interpreted in the context of the absolute cell counts (cells/L). Interpretation and review of laboratory results Abnormal [facility] Nucleated RBC/100 WBC (Bld) [Ratio] 0.0 % [facility] RBC (Bld) [#/Vol] 4.06 10*6/uL [facility] COMPREHENSIVE PANELon 2022 Albumin [Mass/Vol] 4.0 g/dL Normal 3.4 - 5.0 [facility] Comment on above: Performed By: #### C MP #### [facility] [address] [place] [address] ALP [Catalytic activity/Vol] 67 U/L Normal 33 - 110 [facility] Comment on above: Performed By: #### C MP #### [facility] [address] [place] [address] ALT [Catalytic activity/Vol] 34 U/L Normal 7 - 45 [facility] Comment on above: Result Comment: Evelyn ents treated with Sulfasalazine may generate falsely decreased results for ALT. Performed By: #### C MP #### [facility] [address] [place] [address] Anion gap [Moles/Vol] 17 mmol/L Normal 10 - 20 [facility] Comment on above: Performed By: #### C MP #### [facility] [address] [place] [address] AST [Catalytic activity/Vol] 20 U/L Normal 9 - 39 [facility] Comment on above: Performed By: #### C MP #### [facility] [address] [place] [address] Bilirubin [Mass/Vol] 0.4 mg/dL Normal 0.0 - 1.2 [facility] Comment on above: Performed By: #### C MP #### [facility] [address] [place] [address] Calcium [Mass/Vol] 9.0 mg/dL Normal 8.6 - 10.6 [facility] Comment on above: Performed By: #### C MP #### [facility] [address] [place] [address] Chloride [Moles/Vol] 102 mmol/L Normal 98 - 107 [facility] Comment on above: Performed By: #### C MP #### [facility] [address] [place] [address] Creatinine [Mass/Vol] 0.61 mg/dL Normal 0.50 - 1.05 [facility] Comment on above: Performed By: #### C MP #### [facility] [address] [place] [address] eGFR FEMALE >90 Normal >90 [facility] Comment on above: Result Comment: CALC ULATIONS OF ESTIMATED GFR ARE PERFORMED USING THE 2020 CKD-EPI STUDY REFIT EQUATION WITHOUT THE RACE VARIABLE FOR THE IDMS-TRACEABLE CREATININE METHODS. https://jasn.asnjournals.org/content/early/ASN.833959 8467 Performed By: #### C MP #### [facility] [address] [place] [address] Glucose [Mass/Vol] 116 mg/dL High 74 - 99 [facility] Comment on above: Performed By: #### C MP #### [facility] [address] [place] [address] HCO3 (Bld) [Moles/Vol] 23 mmol/L Normal 21 - 32 [facility] Comment on above: Performed By: #### C MP #### [facility] [address] [place] [address] Potassium [Moles/Vol] 3.9 mmol/L Normal 3.5 - 5.3 [facility] Comment on above: Performed By: #### C MP #### [facility] [address] [place] [address] Protein [Mass/Vol] 6.5 g/dL Normal 6.4 - 8.2 [facility] Comment on above: Performed By: #### C MP #### [facility] [address] [place] [address] Sodium [Moles/Vol] 138 mmol/L Normal 136 - 145 [facility] Comment on above: Performed By: #### C MP #### [facility] [address] [place] [address] Urea nitrogen [Mass/Vol] 20 mg/dL Normal 6 - 23 [facility] Comment on above: Performed By: #### C MP #### [facility] [address] [place] [address] CORONAVIRUS 2019 BY PCRon SARS-CoV-2 (COVID-19) RNA SANNA+probe Ql (Unsp spec) Not detected Normal Not Detected [facility] Comment on above: Result Comment: . This test has received FDA Emergency Use Authorization (EUA) and has been verified by [facility] ([facility]). This test is only authorized for the duration of time that circumstances exist to justify the authorization of the emergency use of in vitro diagnostic tests for the detection of SARS-CoV-2 virus and/or diagnosis of COVID-19 infection under section 564(b)(1) of the Act, 21 U.S.C. 360bbb-3(b)(1), unless the authorization is terminated or revoked sooner. [facility] is certified under CLIA-88 as qualified to perform high complexity testing. Testing is performed in the [facility] located at [address] [place] [address]. SARS-CoV-2/Flu/RSV Multiplex Test: Fact sheet for providers: https://www.fda.gov/media/920143/download Fact sheet for patients: https://www.fda.gov/media/038514/download Performed By: #### C OV19 #### [place] [address] Lab Specimen Source Nasal, Nasopharyngeal Normal [facility] Comment on above: Performed By: #### C OV19 #### [place] [address] CT Abdomen and Pelvis with I V Contraston 06-14-2023 CT Abdomen and Pelvis W contrast IV Please click on the link to view the study images Normal [facility] Work Phone: Complete Blood Count + Diffe rentialon 06-14-2023 Basophils/100 WBC (Bld) 0.7 % 0.0 - 2.0 [facility] Work Phone: Erythrocyte distribution width (RBC) [Ratio] 13.2 % See Below [facility] Work Phone: Comment on above: Reference Range: 11. 5 - 14.5 Hematocrit (Bld) [Volume fraction] 36.0 % See Below [facility] Work Phone: Comment on above: Reference Range: 36. 0 - 46.0 Hemoglobin (Bld) [Mass/Vol] 11.9 g/dL below low threshold See Below [facility] Work Phone: Comment on above: Reference Range: 12. 0 - 16.0 Lymphocytes/100 WBC (Bld) 23.8 % See Below [facility] Work Phone: Comment on above: Reference Range: 13. 0 - 44.0 MCHC (RBC) [Mass/Vol] 33.1 g/dL See Below [facility] Work Phone: Comment on above: Reference Range: 32. 0 - 36.0 MCV (RBC) [Entitic vol] 89 fL 80 - 100 [facility] Work Phone: Monocytes/100 WBC (Bld) 6.6 % 2.0 - 10.0 [facility] Work Phone: Neutrophils/100 WBC (Bld) 65.2 % See Below [facility] Work Phone: Comment on above: Reference Range: 40. 0 - 80.0 Platelets (Bld) [#/Vol] 408 10*3/uL 150 - 450 [facility] Work Phone: RBC (Bld) [#/Vol] 4.06 {x10E12/L} See Below [facility] Work Phone: Comment on above: Reference Range: 4.0 0 - 5.20 WBC (Bld) [#/Vol] 8.8 10*3/uL 4.4 - 11.3 [facility] Work Phone: Complete Blood Count + Differential 0.06 {x10E9/L} See Below [facility] Work Phone: Comment on above: Reference Range: 0.0 0 - 0.10 Complete Blood Count + Differential 0.28 {x10E9/L} See Below [facility] Work Phone: Comment on above: Reference Range: 0.0 0 - 0.70 Complete Blood Count + Differential 0.58 {x10E9/L} See Below [facility] Work Phone: Comment on above: Reference Range: 0.1 0 - 1.00 Complete Blood Count + Differential 2.09 {x10E9/L} See Below [facility] Work Phone: Comment on above: Reference Range: 1.2 0 - 4.80 Complete Blood Count + Differential 5.72 {x10E9/L} See Below [facility] Work Phone: Comment on above: Reference Range: 1.2 0 - 7.70 Complete Blood Count + Differential 3.2 % 0.0 - 6.0 [facility] Work Phone: Complete Blood Count + Differential 0.5 % 0.0 - 0.9 [facility] Work Phone: Comment on above: Immature Granulocyte Count (IG) includes promyelocytes, myelocytes and metamyelocytes but does not include bands. Percent differential counts (%) should be interpreted in the context of the absolute cell counts (cells/L). Complete Blood Count + Differential 0.0 {/100_WBC} 0.0-0.0 [facility] Work Phone: Comprehensive metabolic 2000 panelon 06-14-2023 Albumin BCP dye [Mass/Vol] 4.0 g/dL 3.4 - 5.0 g/dL [facility] ALT With P-5'-P [Catalytic activity/Vol] 34 U/L 7 - 45 U/L [facility] Comment on above: Patients treated wit h Sulfasalazine may generate falsely decreased results for ALT. AST With P-5'-P [Catalytic activity/Vol] 20 U/L 9 - 39 U/L [facility] CO2 [Moles/Vol] 23 mmol/L 21 - 32 mmol/L [facility] GFR Female >90 - PINF [facility] Comment on above: CALCULATIONS OF ESTUARDO MATED GFR ARE PERFORMED USING THE 2020 CKD-EPI STUDY REFIT EQUATION WITHOUT THE RACE VARIABLE FOR THE IDMS-TRACEABLE CREATININE METHODS. https://jasn.asnjournals.org/content/early//ASN.810007 8423 Interpretation and review of laboratory results Abnormal [facility] Coronavirus 2019 RNA by PCR, Symptomaticon 06-14-2023 Coronavirus 2019 RNA by PCR, Symptomatic Not detected Normal See Below -Kaylin Hernandez 6 [facility] Work Phone: Comment on above: SOURCE: Nasal, Nasop haryngealReference Range: Not Detected.This test has received FDA Emergency Use Authorization (EUA) and has been verified by [facility] ([facility]). This test is only authorized for the duration of time that circumstances exist to justify the authorization of the emergency use of in vitro diagnostic tests for the detection of SARS-CoV-2 virus and/or diagnosis of COVID-19 infection under section 564(b)(1) of the Act, 21 U.S.C. 360bbb-3(b)(1), unless the authorization is terminated or revoked sooner. [facility] is certified under CLIA-88 as qualified to perform high complexity testing. Testing is performed in the [facility] located at [address] [place] [address].SARS-CoV-2/Flu/RSV Multiplex Test: Fact sheet for providers: https://www.fda.gov/media/810869/downloadFact sheet for patients: https://www.fda.gov/media/671561/download Covid 19 Resultson 3 SARS-CoV-2 (COVID-19) RNA SANNA+probe Ql (Unsp spec) NEGATIVE COVID-19 Test Coronaviruses are common world-wide and are the cause of many common colds. SARS-COV2 is a new coronavirus that began circulating worldwide in 2019 so we are calling it COVID-19. It has been estimated that four out of five patients with COVID-19 will recover at home without the need for medical attention. Symptoms of COVID-19 may include cough, fever, shortness of breath, loss of taste or smell and other flu-like symptoms including chills, sore muscles, sore throat, and headache. Severe illness is more common in older people and people with other health problems such as high blood pressure, obesity, and immune system problems. If the test is positive, you have COVID-19. You will be contacted by the ordering physicians office and instructed to remain on home isolation, in accordance with CDC guidelines. You may also be contacted by the [facility] to see if any of your close contacts may have been exposed to the virus and need to quarantine. If the test is negative, you likely do not have COVID-19 at this time, but you still may have a different illness that can spread to other people (like Influenza, or the Flu) and could still be at risk for getting COVID-19. We recommend that you stay away from other people to limit the spread of illness until your symptoms are improving and you are fever-free for 24 hours without the use of fever lowering medications such as acetaminophen or ibuprofen. No test is 100% accurate so if you are still concerned you may have COVID-19, talk to your doctor about the need to continue to stay away from others. Medicines Unless your provider told you not to use the following: Acetaminophen (Tylenol and others) is generally safe. Anti-inflammatory medications, such as Ibuprofen (Advil or Motrin) or Naproxen (Aleve) can also be used. Tjqe-dey-etfclzy cough and cold medicines can be used according to the instructions on the package. Some rojr-lpd-bwexsqc medicines also contain acetaminophen. Make sure you are not taking more than your recommended dose. For those not hospitalized, there is no specific treatment available for this illness. Antibiotics do not treat Coronaviruses. Follow-Up Follow up with your doctor by scheduling a virtual visit or consider follow-up at one of our urgent care fever clinics. If you are having difficulty breathing, or are very weak and having difficulty standing, this is a medical emergency. Call 911 or have someone take you to the nearest emergency room immediately. If possible, wear a facemask. Additional guidance from the CDC for patients who tested POSITIVE for COVID-19 How to isolate: Isolate yourself in a specific room at home and limit your contact with others. Use a separate bathroom from other members of the household, when possible. Leave home only to get essential medical care. Do not go to work, school or public areas. Avoid using public transportation, ride-sharing, or taxis. Restrict contact with pets and other animals. If you must care for your pet or be around animals while you are sick, wash your hands before and after your interaction and wear a facemask. Make sure that shared spaces in the home have good airflow, such as by an air conditioner or an opened window, weather permitting. Personal Hygiene Procedures: Wear a face mask when in the same room as other people or pets. If a face mask interferes with your breathing, others should wear a mask when sharing space with you. Frequent hand-washing: wash your hands with soap and water for at least 20 seconds. If soap and water are not available, use alcohol-based hand supervisor maintenance. Avoid touching your eyes, nose, and mouth with unwashed hands. Household Hygiene Procedures: Avoid sharing personal household items such as dishes, glassware, cups, eating utensils, towels or bedding with other people or pets in your home. After use, these items should be washed with soap and hot water. Disinfect all high-touch surfaces every day with antibacterial cleaning solutions such as Lysol wipes, bleach, cleansers, etc. High-touch surfaces include tabletops, doorknobs, bathroom fixtures, toilets, phones, keyboards, tablets and bedside tables. Immediately clean any surfaces that may have blood, poop or body fluids on them, using antibacterial cleaning solutions such as Lysol wipes, bleach, cleansers, etc. If clothing or bedding come into contact with blood, poop or body fluids, they should be washed immediately. Follow the directions on the laundry detergent and clothing labels but hot water is recommended when possible. Stopping home isolation precautions: If possible, consult your doctor before stopping home isolation precautions. According to the CDC, you can discontinue home isolation precautions when you have met both of these criteria: Your fever and respiratory symptoms have been gone for 24 helio (more content not included)... Normal [facility] Electrocardiogram 12 Leadon 06-14-2023 Electrocardiogram 12 Lead Ventricular Rate 87 Atrial Rate 87 P-R Interval 148 QRS Duration 88 Q-T Interval 378 QTC Calculation(Bazett) 454 P [place] 50 R [place] 6 T [place] 32 QRS Count 14 Q Onset 223 P Onset 149 P Offset 201 T Offset 412 QTC Fredericia 427 Diagnosis Class Unknown Diagnosis Confirmed by Zofia Young ([id number]) on 06/15/2023 2:07:55 AM Normal [facility] LIPASEon 06-14-2023 Lipase [Catalytic activity/Vol] 67 U/L Normal 9 - 82 [facility] Comment on above: Venipuncture immedia tely after or during the administration of Metamizole may lead to falsely low results. Testing should be performed immediately prior to Metamizole dosing. D-aerzqe-l-benzoquinone imine (metabolite of Acetaminophen) will generate erroneously low results in samples for patients that have taken toxic doses of acetaminophen. Result Comment: Samreen puncture immediately after or during the administration of Metamizole may lead to falsely low results. Testing should be performed immediately prior to Metamizole dosing. W-mywzmb-a-benzoquinone imine (metabolite of Acetaminophen) will generate erroneously low results in samples for patients that have taken toxic doses of acetaminophen. Performed By: #### L IPAS #### [facility] [address] [place] [id number] LIPASE Canceled Normal [facility] Comment on above: Order Comment: TEST LIPASE WAS CANCELLED, 06/14/2023 20:29 DUPLICATE ORDER. Result Comment: Samreen puncture immediately after or during the administration of Metamizole may lead to falsely low results. Testing should be performed immediately prior to Metamizole dosing. Performed By: #### L IPAS #### [facility] [address] [place] [address] Laboratory - Chemistry and C hemistry - challengeon 06-14-2023 Albumin BCP dye [Mass/Vol] 4.0 g/dL 3.4 - 5.0 [facility] Work Phone: ALP [Catalytic activity/Vol] 67 U/L 33 - 110 [facility] Work Phone: ALT With P-5'-P [Catalytic activity/Vol] 34 U/L 7 - 45 [facility] Work Phone: Comment on above: Patients treated wit h Sulfasalazine may generate falsely decreased results for ALT. Anion gap [Moles/Vol] 17 mmol/L 10 - 20 [facility] Work Phone: AST With P-5'-P [Catalytic activity/Vol] 20 U/L 9 - 39 [facility] Work Phone: Bilirubin [Mass/Vol] 0.4 mg/dL 0.0 - 1.2 [facility] Work Phone: Calcium [Mass/Vol] 9.0 mg/dL 8.6 - 10.6 [facility] Work Phone: Chloride [Moles/Vol] 102 mmol/L 98 - 107 [facility] Work Phone: CO2 [Moles/Vol] 23 mmol/L 21 - 32 [facility] Work Phone: Creatinine [Mass/Vol] 0.61 mg/dL See Below [facility] Work Phone: Comment on above: Reference Range: 0.5 0 - 1.05 Glucose [Mass/Vol] 116 mg/dL above high threshold 74 - 99 [facility] Work Phone: Potassium [Moles/Vol] 3.9 mmol/L 3.5 - 5.3 [facility] Work Phone: Protein [Mass/Vol] 6.5 g/dL 6.4 - 8.2 [facility] Work Phone: Sodium [Moles/Vol] 138 mmol/L 136 - 145 [facility] Work Phone: Urea nitrogen [Mass/Vol] 20 mg/dL 6 - 23 [facility] Work Phone: Lipaseon 06-14-2023 Lipase [Catalytic activity/Vol] CANCELED [facility] Comment on above: Venipuncture immedia tely after or during the administration of Metamizole may lead to falsely low results. Testing should be performed immediately prior to Metamizole dosing. Result canceled by the ancillary. Lipase [Catalytic activity/V ol]on 06-14-2023 [facility] Lipase, Serumon 06-14-2023 Lipase [Catalytic activity/Vol] 67 U/L 9 - 82 [facility] Work Phone: Comment on above: Venipuncture immedia tely after or during the administration of Metamizole may lead to falsely low results. Testing should be performed immediately prior to Metamizole dosing. L-dzjquv-u-benzoquinone imine (metabolite of Acetaminophen) will generate erroneously low results in samples for patients that have taken toxic doses of acetaminophen. Lipase [Catalytic activity/Vol] Canceled [facility] Work Phone: Comment on above: Venipuncture immedia tely after or during the administration of Metamizole may lead to falsely low results. Testing should be performed immediately prior to Metamizole dosing. No Panel Informationon 06-14 [facility] [email or web address]?[email or web address] teTime?BevyqfsSF=[email or web address]&Date=14-06-2023&Johnathan e=[email or web address]&Peggy tType=ECG&Site=1&Output Type=PDF&Ext=PDF [facility] Work Phone: [facility] Work Phone: Unknown [facility] Work Phone: 427 1 [facility] Work Phone: 412 1 [facility] Work Phone: 201 1 [facility] Work Phone: 149 1 [facility] Work Phone: 223 1 [facility] Work Phone: 14 1 [facility] Work Phone: 32 1 [facility] Work Phone: 6 1 [facility] Work Phone: 50 1 [facility] Work Phone: 454 1 [facility] Work Phone: 378 1 [facility] Work Phone: 88 1 [facility] Work Phone: 148 1 [facility] Work Phone: 87 1 [facility] Work Phone: >90 >90 [facility] Work Phone: Comment on above: CALCULATIONS OF ESTUARDO MATED GFR ARE PERFORMED USING THE 2020 CKD-EPI STUDY REFIT EQUATION WITHOUT THE RACE VARIABLE FOR THE IDMS-TRACEABLE CREATININE METHODS.https://jasn.asnjournals.org/content// N.2744058004 Provider Note - ED Care Jasmin lopez 06-14-2023 Provider Note - ED Care Transition ED Care Transition: Chart Review: ED NOTES ED NOTES: Assumed care from medical student for Ms. Dorothea Rutledge, 47 yo female, who presented with nausea and abdominal pain. Patient was sleeping comfortably. She states her nausea has improved. She received another 0.5 mg of Dilaudid for her abdominal pain. Pending CT A+P. Labs reviewed, notable for mild anemia (11.9) otherwise within normal limits. If imaging is normal, pt can go home if she tolerates orals. I reviewed the case with the attending ED physician, Dr. Larios. The attending ED physician agrees with the plan. Patient and/or patients contact center representative was counseled regarding labs, imaging, likely diagnosis, and plan. All questions were answered. Assessment: Ms. 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 Pt can be discharged if normal imaging and can tolerate orals. Disposition: Pending, most likely discharged if normal imaging (CT abd +pelvis) and able to tolerate orals. CLINICAL IMPRESSION Diagnosis/Annotation: ED Dx Name:Abdominal pain Code:R10.9 Name:Pancreatitis Code:K85.90 Disposition: HANDOFF Condition on Disposition: stable ATTESTATION Attestation: I saw and evaluated the patient. I personally obtained the denise and critical portions of the history and physical exam or was physically present for denise and critical portions performed by the resident/fellow. I reviewed the resident/fellows documentation and discussed the patient with the resident/fellow. I agree with the resident/fellows medical decision making as documented in the residents note CRITICAL CARE TIME Is this a critically ill patient: no Electronic Signatures: Yeni Ron (Resident)) (Signed 15-Jun-2023 01:57) Authored: ED Notes, Clinical Impression, Attestation, Chart Review, Scores Camilo Larios) (Signed 15-Jun-2023 02:50) Authored: Clinical Impression, Attestation, Chart Review Co-Signer: ED Notes, Clinical Impression, Attestation, Chart Review, Scores Last Updated: 15-Jun-2023 02:50 by Camilo Larios) Normal [facility] Provider Note - ED v3on 05-21 Provider Note - ED v3 Provider Note: Results/Vital Signs: Pediatric Clinical Scoring (OVI) is no recent OVI charted on this account Chart Review: ED NOTES ED NOTES: HPI: 47-year-old female with history including hypertension, factor V Leiden, DVT on Xarelto, seizures, s/p cholecystectomy, necrotizing pancreatitis presents to the emergency department for acute abdominal pain that started at 10am this morning, waking her up from sleep. States it's primarily in the RUQ/epigastric region and radiates to her back and right shoulder. Notes it's similar to prior pancreatitis flares but this is worse in severity. Associated with nausea but no vomiting, subjective fever, and a week of watery nonbloody stools, which she often has with pancreatitis flares. Denies GI bleeding, chest pain, cough, dyspnea. Of note, she was recently treated for UTI followed by BV and is currently taking flagyl. States vaginal discharge has improved. Limitations to History: none Additional history obtained from: none Past Medical/Surgical History: as per HPI, reviewed in EMR -see below Social History: Denies tobacco, alcohol, drug use. Medications: reviewed in EMR (see below) Allergies: reviewed in EMR (see below) Physical Exam: VS: reviewed in triage note and EMR flowsheet GEN: well-developed, no acute distress, sitting in bed, awake, alert HEAD: Normocephalic, no external signs of trauma EYES: pupils equal, no scleral icterus or conjunctival injection ENT: nares patent, moist mucous membranes NECK: supple, ROM grossly intact CVS: RRR, well-perfused PULM: CTAB, nonlabored respirations GI: soft, nondistended, moderate epigastric/RUQ tenderness, no rebound or guarding EXT: no LE edema, no joint deformities or swelling NEURO: alert, answering questions appropriately, speech is fluent, no facial asymmetry, moving all extremities EKG per my interpretation: Normal sinus rhythm, rate 87, left axis deviation, normal intervals, no significant ST elevation/depression or T wave abnormalities ED Course/Medical Decision Makin-year-old female with history including hypertension, factor V Leiden, DVT on Xarelto, seizures, s/p cholecystectomy, necrotizing pancreatitis presents to the emergency department for acute abdominal pain that started at 10am this morning, with associated nausea, subjective fever. Had a week of watery stools as well. She notes that she's been seen by GI for her pancreatic cysts, which have been conservatively managed, but was told they may need to have them drained if they increase in size. She's uncomfortable-appearing but nontoxic. Mentating appropriately. Has moderate upper abdominal tenderness but is not peritonitic. She was given symptomatic management. Her labs are relatively stable with normal lipase. However, given her complex pancreatitic history, will repeat CT abdomen/pelvis today. She remains stable and reported recurring pain for which she was given additional analgesics. The patient was signed out to the oncoming ED team pending CT and reevaluation, which will determine dispo. External Records Reviewed: discharge summaries, clinic notes I independently reviewed/interpreted diagnostic testing including: labs, ekg Discussion of management with other providers: none during my shift Escalation of Care: pending imaging but considered admission Impression: Abdominal pain Disposition: handoff Angela Miles MD - HISTORY OF PRESENTING ILLNESS DOROTHEA is a 47 year old Female and was seen by me at 14-Jun-2023 18:37. Triage Information: Most recent Vital Sign Value Date Temp (F): 97.1 06-14-2023 14:34 Temp (C): 36.1 06-14-2023 14:34 Heart Rate (beats/min): 85 06-14-2023 14:34 Respirations (breaths/min): 16 06-14-2023 14:34 SpO2 (%): 97 06-14-2023 14:34 BP Systolic (mm Hg): 149 06-14-2023 14:34 BP Diastolic (mm Hg): 96 06-14-2023 14:34 PAST MEDICAL HISTORY ALLERGIES/INTOLERANCES: Allergy Allergen: penicillin Type: Drug Reaction: Rash Allergen: Neurontin Type: Drug Reaction: Swelling/Edema Allergen: sulfa drugs Type: Drug Category Reaction: Rash HEALTH HISTORY: No documented data. OUTPATIENT MEDICATIONS: Home Medications Review Status for Reconciliation: N/A Med Status: Patient Currently Takes Medications Drug Name: cholecalciferol 1250 mcg (50,000 intl units) oral capsule Instructions: 1 cap(s) orally once a week on Tuesday Drug Name: clonazePAM 0.5 mg oral tablet Instructions: 1 tab(s) orally once a day, As Needed - for seizure Drug Name: cloNIDine 0.2 mg oral tablet Instructions: 1 tab(s) orally once a day Drug Name: linaclotide 290 mcg oral capsule Instructions: 1 cap(s) orally once a day Drug Name: methenamine hippurate 1 g oral tablet Instructions: 1 tab(s) orally once a day Drug Name: metoprolol succinate 25 mg oral tablet, extended release Instructions: 1 tab(s) orally once a day D (more content not included)... Normal [facility] SARS-CoV-2 (COVID-19) RNA NA A+probe Ql (Resp)on 06-14-2023 SARS-related CoV RNA SANNA+probe Ql (Resp) Not detected Not Detected [facility] Comment on above: . This test has received FDA Emergency Use Authorization (EUA) and has been verified by [facility] ([facility]). This test is only authorized for the duration of time that circumstances exist to justify the authorization of the emergency use of in vitro diagnostic tests for the detection of SARS-CoV-2 virus and/or diagnosis of COVID-19 infection under section 564(b)(1) of the Act, 21 U.S.C. 360bbb-3(b)(1), unless the authorization is terminated or revoked sooner. [facility] is certified under CLIA-88 as qualified to perform high complexity testing. Testing is performed in the [facility] located at [address] [place] [address]. SARS-CoV-2/Flu/RSV Multiplex Test: Fact sheet for providers: https://www.fda.gov/media/591398/download Fact sheet for patients: https://www.fda.gov/media/079858/download [facility] .Auto Diffon 06-03-2023 Basophil, Absolute 0.1 10 3/mcL Normal 0.0-0.2 [facility] ([place]) Comment on above: Performed By: #### U A, PREGU #### [facility] [address] [place], [place] [address] Basophils/100 WBC (Bld) 1.0 % Normal 0.0-2.5 [facility] ([place]) Comment on above: Performed By: #### U A, PREGU #### [facility] [address] [place], [place] [address] Eosinophil, Absolute 0.3 10 3/mcL Normal 0.0-0.4 [facility] ([place]) Comment on above: Performed By: #### U A, PREGU #### [facility] [address] [place], [place] [address] Eosinophils/100 WBC (Bld) 2.5 % Normal 0.0-7.0 [facility] ([place]) Comment on above: Performed By: #### U A, PREGU #### [facility] [address] [place], [place] [address] Lymphocyte, Absolute 2.0 10 3/mcL Normal 0.8-3.9 [facility] ([place]) Comment on above: Performed By: #### U A, PREGU #### [facility] [address] [place], [place] [address] Lymphocytes/100 WBC (Bld) 20.1 % Normal 10.0-50.0 [facility] ([place]) Comment on above: Performed By: #### U A, PREGU #### [facility] [address] [place], [place] [address] Monocyte, Absolute 0.5 10 3/mcL Normal 0.2-1.0 [facility] ([place]) Comment on above: Performed By: #### U A, PREGU #### [facility] [address] [place], [place] [address] Monocytes/100 WBC (Bld) 5.3 % Normal 1.7-13.0 [facility] ([place]) Comment on above: Performed By: #### U A, PREGU #### [facility] [address] [place], [place] [address] Neutrophils/100 WBC (Bld) 71.1 % Normal 37.0-80.0 [facility] ([place]) Comment on above: Performed By: #### U A, PREGU #### [facility] [address] [place], [place] [address] .GFRon 06-03-2023 GFR 80 ml/min/1.73sqm Normal [facility] ([place]) Comment on above: Result Comment: GFR Population mean for , Non- Americans Ages 20-29 = 116 mL/min/1.73 sq.m. Ages 30-39 = 107 mL/min/1.73 sq.m. Ages 40-49 = 99 mL/min/1.73 sq.m. Ages 50-59 = 93 mL/min/1.73 sq.m. Ages 60-69 = 85 mL/min/1.73 sq.m. Ages 70+ = 75 mL/min/1.73 sq.m. Chronic Kidney Disease: Less than 60 mL/min/1.73 square meters End Stage Renal Disease: Less than 15 mL/min/1.73 square meters Performed By: #### U A, PREGU #### [facility] [address] [place], [place] [address] GFR Non- 66 ml/min/1.73sqm Normal [facility] ([place]) Comment on above: Result Comment: GFR Population mean for , Non- Americans Ages 20-29 = 116 mL/min/1.73 sq.m. Ages 30-39 = 107 mL/min/1.73 sq.m. Ages 40-49 = 99 mL/min/1.73 sq.m. Ages 50-59 = 93 mL/min/1.73 sq.m. Ages 60-69 = 85 mL/min/1.73 sq.m. Ages 70+ = 75 mL/min/1.73 sq.m. Chronic Kidney Disease: Less than 60 mL/min/1.73 square meters End Stage Renal Disease: Less than 15 mL/min/1.73 square meters Performed By: #### U A, PREGU #### [facility] [address] [place], [place] [address] .MDWon 06-03-2023 Monocyte Distribution Width 21.63 High 0.00-20.00 [facility] ([place]) Comment on above: Result Comment: For adults in ED, MDW>20.0 may be associated with a higher risk of sepsis during the first 12hrs of hospital admission Performed By: #### U Abigail, PREGU #### [facility] [address] [place], [place] [address] .NEUABSon 06-03-2023 Neutrophil, Absolute 7.2 10 3/mcL High 2.9-6.2 [facility] ([place]) Comment on above: Performed By: #### U Abigail PREGU #### [facility] [address] [place], [place] [address] CBCon 06-03-2023 Erythrocyte distribution width (RBC) [Ratio] 14.3 % Normal 11.5-14.5 [facility] ([place]) Comment on above: Performed By: #### U Abigail PREGU #### [facility] [address] [place], [place] [address] Hematocrit (Bld) [Volume fraction] 39.1 % Normal 37.0-47.0 [facility] ([place]) Comment on above: Performed By: #### U A, PREGU #### [facility] [address] [place], [place] [address] Hgb 13.2 G/dL Normal 12.0-16.0 [facility] ([place]) Comment on above: Performed By: #### U A, PREGU #### [facility] [address] [place], [place] [address] MCH (RBC) [Entitic mass] 29.9 pg Normal 27.0-31.2 [facility] ([place]) Comment on above: Performed By: #### U A, PREGU #### Sean [facility] [address] [place], [place] [address] MCHC 33.7 G/dL Normal 33.0-37.0 [facility] ([place]) Comment on above: Performed By: #### U A, PREGU #### [facility] [place], [place] [address] MCV (RBC) [Entitic vol] 88.8 fL Normal 80.0-94.0 [facility] ([place]) Comment on above: Performed By: #### U A, PREGU #### [facility] [address] [place], [place] [address] Platelet 441 10 3/mcL High 130-400 [facility] ([place]) Comment on above: Performed By: #### U Abigail, PREGU #### [facility] Loa[facility] [address] [place], [place] [address] Platelet mean volume (Bld) [Entitic vol] 6.3 fL Low 7.4-10.4 [facility] ([place]) Comment on above: Performed By: #### U A, PREGU #### [facility] [address] [place], [place] [address] RBC 4.41 10 6/mcL Normal 4.20-5.40 [facility] ([place]) Comment on above: Performed By: #### U A, PREGU #### Sean [facility]aiz[address] [place], [place] [address] WBC 10.1 10 3/mcL Normal 4.6-10.8 [facility] ([place]) Comment on above: Performed By: #### U A, PREGU #### [facility] [address] [place], [place] [address] CMPon 06-03-2023 Albumin Level 4.1 G/dL Normal 3.5-5.0 [facility] ([place]) Comment on above: Performed By: #### U A, PREGU #### [facility] [address] [place], [place] [address] Albumin/Globulin [Mass ratio] 1.0 {ratio} Low 1.1-2.5 [facility] ([place]) Comment on above: Performed By: #### U A, PREGU #### [facility] [address] [place], [place] [address] ALP [Catalytic activity/Vol] 96 U/L Normal 40-135 [facility] ([place]) Comment on above: Performed By: #### U A, PREGU #### [facility] [address] [place], [place] [address] ALT [Catalytic activity/Vol] 103 U/L High 14-59 [facility] ([place]) Comment on above: Performed By: #### U A, PREGU #### [facility] [address] [place], [place] [address] AST [Catalytic activity/Vol] 61 U/L High 10-40 [facility] ([place]) Comment on above: Performed By: #### U A, PREGU #### [facility] [address] [place], [place] [address] Bili Total 0.3 mg/dL Normal 0.2-1.0 [facility] ([place]) Comment on above: Result Comment: Use of this assay is not recommended for patients undergoing treatment with eltrombopag due to the potential for falsely elevated results. Performed By: #### U A, PREGU #### [facility] [address] [place], [place] [address] BUN/Creatinine Ratio 23 ratio Normal 7-27 [facility] ([place]) Comment on above: Performed By: #### U A, PREGU #### [facility] [address] [place], [place] [address] Calcium [Mass/Vol] 9.0 mg/dL Normal 8.4-10.2 [facility] ([place]) Comment on above: Performed By: #### U A, PREGU #### [facility] [address] [place], [place] [address] Chloride [Moles/Vol] 99 mmol/L Normal 98-107 [facility] ([place]) Comment on above: Performed By: #### U A, PREGU #### [facility] Loaiz[facility] [address] [place], [place] [address] CO2 [Moles/Vol] 24 mmol/L Normal 22-29 [facility] ([place]) Comment on above: Performed By: #### U A, PREGU #### Seanoz Reynolds [address] [place], [place] [address] Creatinine [Mass/Vol] 0.91 mg/dL Normal 0.55-1.02 [facility] ([place]) Comment on above: Performed By: #### U A, PREGU #### [facility] [address] [place], [place] [address] Electrolyte Balance 13.0 mEq/L Normal 4.0-15.0 [facility] ([place]) Comment on above: Performed By: #### U A, PREGU #### [facility] Davis[facility]un[facility] [address] [place], [place] [address] Globulin 4.1 G/dL Normal [facility] ([place]) Comment on above: Performed By: #### U A, PREGU #### [facility] Loaiz[address] [place], [place] [address] Glucose [Mass/Vol] 180 mg/dL High 70-105 [facility] ([place]) Comment on above: Performed By: #### U A, PREGU #### Se[facility] Loaiz[address] [place], [place] [address] Potassium [Moles/Vol] 4.0 mmol/L Normal 3.5-5.1 [facility] ([place]) Comment on above: Performed By: #### U A, PREGU #### Se[facility] Lo[address]iz[address] [place], [place] [address] Sodium [Moles/Vol] 136 mmol/L Normal 136-145 [facility] ([place]) Comment on above: Performed By: #### U A, PREGU #### [facility] [address] [place], [place] [address] Total Protein 8.2 G/dL Normal 6.4-8.2 [facility] ([place]) Comment on above: Performed By: #### U A, PREGU #### [facility] [address] [place], [place] [address] Urea nitrogen [Mass/Vol] 21 mg/dL High 7-18 [facility] ([place]) Comment on above: Performed By: #### U A, PREGU #### [facility] [address] [place], [place] [address] LABORATORYOrdered By: SYSTEM SYSTEM on 06-03-2023 Albumin BCP dye [Mass/Vol] 4.1 G/dL Invalid Interpretation Code 3.5 - 5.0 G/dL AO ADM SS Albumin/Globulin [Mass ratio] 1.0 {ratio} Invalid Interpretation Code 1.1 - 2.5 ratio AO ADM SS ALP [Catalytic activity/Vol] 96 U/L Invalid Interpretation Code 40 - 135 U/L AO ADM SS ALT With P-5'-P [Catalytic activity/Vol] 103 U/L Invalid Interpretation Code 14 - 59 U/L AO ADM SS AST With P-5'-P [Catalytic activity/Vol] 61 U/L Invalid Interpretation Code 10 - 40 U/L AO ADM SS Basophil, Absolute 0.1 103/mcL Invalid Interpretation Code 0.0 - 0.2 10^3/mcL AO Workflow SS Basophils/100 WBC (Bld) 1.0 % Invalid Interpretation Code 0.0 - 2.5 % AO Workflow SS Bilirubin [Mass/Vol] 0.3 mg/dL Invalid Interpretation Code 0.2 - 1.0 mg/dL AO ADM SS Comment on above: Interpretive Data: U se of this assay is not recommended for patients undergoing treatment with eltrombopag due to the potential for falsely elevated results. Calcium [Mass/Vol] 9.0 mg/dL Invalid Interpretation Code 8.4 - 10.2 mg/dL AO ADM SS Chloride [Moles/Vol] 99 mmol/L Invalid Interpretation Code 98 - 107 mmol/L AO ADM SS CO2 [Moles/Vol] 24 mmol/L Invalid Interpretation Code 22 - 29 mmol/L AO ADM SS Creatinine [Mass/Vol] 0.91 mg/dL Invalid Interpretation Code 0.55 - 1.02 mg/dL AO ADM SS Electrolyte Balance 13.0 mEq/L Invalid Interpretation Code 4.0 - 15.0 mEq/L AO ADM SS Eosinophil, Absolute 0.3 103/mcL Invalid Interpretation Code 0.0 - 0.4 10^3/mcL AO Workflow SS Eosinophils/100 WBC (Bld) 2.5 % Invalid Interpretation Code 0.0 - 7.0 % AO Workflow SS Erythrocyte distribution width (RBC) [Ratio] 14.3 % Invalid Interpretation Code 11.5 - 14.5 % AO Workflow SS GFR/1.73 sq M.predicted among blacks MDRD (S/P/Bld) [Vol rate/Area] 80 ml/min/1.73sqm Invalid Interpretation Code AO Chemistry S Comment on above: Interpretive Data: GFR Population mean for , Non- Americans Ages 20-29 = 116 mL/min/1.73 sq.m. Ages 30-39 = 107 mL/min/1.73 sq.m. Ages 40-49 = 99 mL/min/1.73 sq.m. Ages 50-59 = 93 mL/min/1.73 sq.m. Ages 60-69 = 85 mL/min/1.73 sq.m. Ages 70+ = 75 mL/min/1.73 sq.m. Chronic Kidney Disease: Less than 60 mL/min/1.73 square meters End Stage Renal Disease: Less than 15 mL/min/1.73 square meters GFR/1.73 sq M.predicted among non-blacks MDRD (S/P/Bld) [Vol rate/Area] 66 ml/min/1.73sqm Invalid Interpretation Code AO Chemistry S Comment on above: Interpretive Data: GFR Population mean for , Non- Americans Ages 20-29 = 116 mL/min/1.73 sq.m. Ages 30-39 = 107 mL/min/1.73 sq.m. Ages 40-49 = 99 mL/min/1.73 sq.m. Ages 50-59 = 93 mL/min/1.73 sq.m. Ages 60-69 = 85 mL/min/1.73 sq.m. Ages 70+ = 75 mL/min/1.73 sq.m. Chronic Kidney Disease: Less than 60 mL/min/1.73 square meters End Stage Renal Disease: Less than 15 mL/min/1.73 square meters Globulin 4.1 G/dL Invalid Interpretation Code AO ADM SS Glucose [Mass/Vol] 180 mg/dL Invalid Interpretation Code 70 - 105 mg/dL AO ADM SS Hematocrit (Bld) [Volume fraction] 39.1 % Invalid Interpretation Code 37.0 - 47.0 % AO Workflow SS Hemoglobin (Bld) [Mass/Vol] 13.2 G/dL Invalid Interpretation Code 12.0 - 16.0 G/dL AO Workflow SS Lipase [Catalytic activity/Vol] 58 U/L Invalid Interpretation Code 16 - 77 U/L AO ADM SS Lymphocyte, Absolute 2.0 103/mcL Invalid Interpretation Code 0.8 - 3.9 10^3/mcL AO Workflow SS Lymphocytes/100 WBC (Bld) 20.1 % Invalid Interpretation Code 10.0 - 50.0 % AO Workflow SS MCH (RBC) [Entitic mass] 29.9 pg Invalid Interpretation Code 27.0 - 31.2 pg AO Workflow SS MCHC 33.7 G/dL Invalid Interpretation Code 33.0 - 37.0 G/dL AO Workflow SS MCV (RBC) [Entitic vol] 88.8 fL Invalid Interpretation Code 80.0 - 94.0 fL AO Workflow SS Monocyte distribution width Auto (Bld) [Entitic vol] 21.63 1 Invalid Interpretation Code 0.00 - 20.00 AO Workflow SS Comment on above: Result Comment: For adults in ED, MDW>20.0 may be associated with a higher risk of sepsis during the first 12hrs of hospital admission Monocyte, Absolute 0.5 103/mcL Invalid Interpretation Code 0.2 - 1.0 10^3/mcL AO Workflow SS Monocytes/100 WBC (Bld) 5.3 % Invalid Interpretation Code 1.7 - 13.0 % AO Workflow SS Neutrophil, Absolute 7.2 103/mcL Invalid Interpretation Code 2.9 - 6.2 10^3/mcL AO Workflow SS Neutrophils/100 WBC (Bld) 71.1 % Invalid Interpretation Code 37.0 - 80.0 % AO Workflow SS Platelet mean volume (Bld) [Entitic vol] 6.3 fL Invalid Interpretation Code 7.4 - 10.4 fL AO Workflow SS Platelets (Bld) [#/Vol] 441 103/mcL Invalid Interpretation Code 130 - 400 10^3/mcL AO Workflow SS Potassium [Moles/Vol] 4.0 mmol/L Invalid Interpretation Code 3.5 - 5.1 mmol/L AO ADM SS Protein [Mass/Vol] 8.2 G/dL Invalid Interpretation Code 6.4 - 8.2 G/dL AO ADM SS RBC (Bld) [#/Vol] 4.41 106/mcL Invalid Interpretation Code 4.20 - 5.40 10^6/mcL AO Workflow SS Sodium [Moles/Vol] 136 mmol/L Invalid Interpretation Code 136 - 145 mmol/L AO ADM SS Urea nitrogen [Mass/Vol] 21 mg/dL Invalid Interpretation Code 7 - 18 mg/dL AO ADM SS Urea nitrogen/Creatinine [Mass ratio] 23 ratio Invalid Interpretation Code 7 - 27 ratio AO ADM SS WBC (Bld) [#/Vol] 10.1 103/mcL Invalid Interpretation Code 4.6 - 10.8 10^3/mcL AO Workflow SS LABORATORYOrdered By: Carie Borjas on 06-03-2023 Appearance (U) Clear (06/03/23 3:32 PM) Invalid Interpretation Code Clear AO Auto Urine SS Bilirubin Ql (U) Negative (06/03/23 3:32 PM) Invalid Interpretation Code Negative AO Auto Urine SS Color (U) Yellow (06/03/23 3:32 PM) Invalid Interpretation Code AO Auto Urine SS Glucose Test strip (U) [Mass/Vol] Negative Invalid Interpretation Code Negative AO Auto Urine SS Hemoglobin Auto test strip (U) [Mass/Vol] Negative (06/03/23 3:32 PM) Invalid Interpretation Code Negative AO Auto Urine SS Ketones Ql (U) Negative Invalid Interpretation Code Negative AO Auto Urine SS UA Leuk Est Negative (06/03/23 3:32 PM) Invalid Interpretation Code Negative AO Auto Urine SS UA Nitrite Negative (06/03/23 3:32 PM) Invalid Interpretation Code Negative AO Auto Urine SS UA pH 6.0 (06/03/23 3:32 PM) Invalid Interpretation Code 5.0 - 8.0 AO Auto Urine SS UA Protein Negative Invalid Interpretation Code Negative AO Auto Urine SS UA Spec Grav 1.025 (06/03/23 3:32 PM) Invalid Interpretation Code 1.015-1.025 AO Auto Urine SS UA Specimen Type Clean Catch (06/03/23 3:32 PM) Invalid Interpretation Code AO Auto Urine SS UA Urobilinogen 0.2 E.U./dL Invalid Interpretation Code 0.2-1.0 AO Auto Urine SS LIPon 06-03-2023 Lipase Level 58 U/L Normal 16-77 [facility] ([place]) Comment on above: Performed By: #### U A, PREGU #### [facility] [address] [place], [place] [address] UAon 06-03-2023 Color (U) Yellow Normal [facility] ([place]) Comment on above: Performed By: #### A DIFF, ANEU, CMP, MG, GFR, LD, CRP, CBC, ESR #### [address] [address] Glucose (U) [Mass/Vol] Negative Normal Negative [facility] ([place]) Comment on above: Performed By: #### A DIFF, ANEU, CMP, MG, GFR, LD, CRP, CBC, ESR #### [address] [address] Ketones Ql (U) Negative Normal Negative [facility] ([place]) Comment on above: Performed By: #### A DIFF, ANEU, CMP, MG, GFR, LD, CRP, CBC, ESR #### [address] [address] UA Appear Clear Normal Clear [facility] ([place]) Comment on above: Performed By: #### A DIFF, ANEU, CMP, MG, GFR, LD, CRP, CBC, ESR #### [address] [address] UA Blood Negative Normal Negative [facility] ([place]) Comment on above: Performed By: #### A DIFF, ANEU, CMP, MG, GFR, LD, CRP, CBC, ESR #### [address] [address] UA Leuk Est Negative Normal Negative [facility] ([place]) Comment on above: Performed By: #### A DIFF, ANEU, CMP, MG, GFR, LD, CRP, CBC, ESR #### [address] [address] UA Nitrite Negative Normal Negative [facility] ([place]) Comment on above: Performed By: #### A DIFF, ANEU, CMP, MG, GFR, LD, CRP, CBC, ESR #### [address] [address] UA pH 6.0 Normal 5.0 - 8.0 [facility] ([place]) Comment on above: Performed By: #### A DIFF, ANEU, CMP, MG, GFR, LD, CRP, CBC, ESR #### [address] [address] UA Protein Negative Normal Negative [facility] ([place]) Comment on above: Performed By: #### A DIFF, ANEU, CMP, MG, GFR, LD, CRP, CBC, ESR #### [address] [address] UA Spec Grav 1.025 Normal 1.015-1.025 [facility] ([place]) Comment on above: Performed By: #### A DIFF, ANEU, CMP, MG, GFR, LD, CRP, CBC, ESR #### [address] [address] UA Specimen Type Clean Catch Normal [facility] ([place]) Comment on above: Performed By: #### A DIFF, ANEU, CMP, MG, GFR, LD, CRP, CBC, ESR #### [address] [address] UA Urobilinogen 0.2 E.U./dL Normal 0.2-1.0 [facility] ([place]) Comment on above: Performed By: #### A DIFF, ANEU, CMP, MG, GFR, LD, CRP, CBC, ESR #### [address] [address] Urobilinogen (U) [Mass/Vol] Negative Normal Negative [facility] ([place]) Comment on above: Performed By: #### A DIFF, ANEU, CMP, MG, GFR, LD, CRP, CBC, ESR #### [address] [address] Initial Visit (Pain Medicine )on 05-25-2023 Initial Visit (Pain Medicine) Orders Tobacco Use Screening; Status:Complete; Done: 25May2023 Chief Complaint Abdominal Pain Patient verified my name and date of . Patient presents to Pain Management for an evaluation and Tx. BMI ____. Non-Smoker Patient Referred by GI doctor at Patient states that her pain is located abd pain. Rates her pain 2/10. Describes her pain as deep in nature. Pain started . Hunching over , or laying on her left side,makes the pain better. Laying Flat, or eating to much food makes the pain worst. Recent CT scan , and ultrasounds done. Surgical hx: hysterectomy , appendix , gall bladder and Current Pain regimen : Tylenol and Motrin Lives at home with her boyfriend. 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 Has 2 children , one grandchild.Highest level education bachelors in nursing. Adult Risk ScreeningThere are no spiritual/cultural practices/values/needs that are important to know Initial Fall Risk Screening: DOROTHEA has not fallen in the last 6 months. Her fall did not result in injury. DOROTHEA does not have a fear of falling. She does not need assistance with sitting, standing or walking. Does not need assistance walking in her home. She does not need assistance in an unfamiliar setting. The patient is not using an assistive device. Fall Risk Screening: Patient is identified as a fall risk. Care Plan: Low Risk: Environmental for all patients and low risk patients: Offer assistance as needed or requested, keep environment free of obstacles, keep floor clean and dry, keep room lighting, wheelchair brakes on, bed/ stretcher locked and in low position if applicable, non-slip footwear if applicable, walker/cane available if needed, side rails up if applicable and pre-emptive toileting. Altered Mobility: none. Alteration in Mental Status: no. Relevant Medical History/Diagnosis: Multiple Dx: . Altered Elimination: no. Medications That May Alter Equilibrium: none. Sensory Deficit: no. Unable or Unwilling to Follow Directions: no. Low: current pain. Pain Scale: On a scale of 0 to 10, the patient rates the pain at 2. Please identify location of pain: abd. Pain Quality: deep . The pain makes it hard for the patient to do these things: walking, sleep, house work and self-care (bathing, dressing, eating). Living Will. Living Will: No living will on file. Healthcare POA: No healthcare proxy on file. Declaration of Mental Health Treatment: No mental health treatment on file. Tobacco Screening: DOROTHEA uses tobacco. DOROTHEA does not use tobacco. Has used tobacco in the past 6 months. Type(s) of Tobacco: vaping Domestic Violence Screen: Does not feel threatened or abused physically, emotionally or sexually. Do you feel UNSAFE? The patient feels safe in the home. Depression/Suicide Screening: During the past 2 weeks, the patient has not felt down, depressed or hopeless. During the past 2 weeks, the patient has not felt little interest or pleasure in doing things. She does not have a risk of suicide. She has not had thoughts of harming others. [place]-SUICIDE SEVERITY RATING SCALE 1. Have you wished you were or wished you could go to sleep and not wake up? -NO 2. Have you actually had any thoughts of killing yourself? - NO 6. Have you done anything, started to do anything, or prepared to do anything to end your life? - YES. Single alcohol screening question: In the past year the patient has had 5 or more drinks (men) or 4 or more drinks (women)? 0 time(s). Single substance abuse screening question: In the past year the patient has used a recreational drug or used a prescription drug for non-medical reasons? 0 time(s). Nutrition Screening: In the past month, there was not a day when I or anyone in my family went hungry because there was not enough food. Patient Education: The patient denies that they or the person with them has problems with hearing, speaking, seeing, moving around or learning The patient is comfortable filling out medical forms. History of Present Illness OPIOID Opioid Risk Screening: Opioid Risk Tool Last opioid risk screening date/ordered today: 05/25/2023 Personal history of substance abuse: Alcohol = 3, Illegal Drugs = 4 Psychological disease: Positive History of Attention Deficit Disorder/Obsessive Compulsive Disorder/Bipolar/Schizo phrenia = 2, Positive History of Depression = 1 Patient's total score is 10, within range of High Risk (>=8) medical marijuana , hx alcohol and opioid drug use. 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 Normal [facility] Tobacco Screening.on 023 Fall risk assessment a) No falls within the last year [facility] Work Phone: Tobacco use status [facility] a) Yes [facility] Work Phone: .Auto Diffon 05-23-2023 Basophil, Absolute 0.0 10 3/mcL Normal 0.0-0.2 [facility] ([place]) Comment on above: Performed By: #### U A, PREGU #### [facility] [address] [place], [place] [address] Basophils/100 WBC (Bld) 0.4 % Normal 0.0-2.5 [facility] ([place]) Comment on above: Performed By: #### U A, PREGU #### [facility] [address] [place], [place] [address] Eosinophil, Absolute 0.2 10 3/mcL Normal 0.0-0.4 [facility] ([place]) Comment on above: Performed By: #### U A, PREGU #### [facility] [address] [place], [place] [address] Eosinophils/100 WBC (Bld) 2.6 % Normal 0.0-7.0 [facility] ([place]) Comment on above: Performed By: #### U A, PREGU #### [facility] [address] [place], [place] [address] Lymphocyte, Absolute 2.1 10 3/mcL Normal 0.8-3.9 [facility] ([place]) Comment on above: Performed By: #### U A, PREGU #### [facility] [address] [place], [place] [address] Lymphocytes/100 WBC (Bld) 20.1 % Normal 10.0-50.0 [facility] ([place]) Comment on above: Performed By: #### U A, PREGU #### [facility] [address] [place], [place] [address] Monocyte, Absolute 0.5 10 3/mcL Normal 0.2-1.0 [facility] ([place]) Comment on above: Performed By: #### U A, PREGU #### [facility] [address] [place], [place] [address] Monocytes/100 WBC (Bld) 5.1 % Normal 1.7-13.0 [facility] ([place]) Comment on above: Performed By: #### U A, PREGU #### [facility] [address] [place], [place] [address] Neutrophils/100 WBC (Bld) 71.6 % Normal 37.0-80.0 [facility] ([place]) Comment on above: Performed By: #### U A, PREGU #### [facility] [address] [place], [place] [address] .GFRon 05-23-2023 GFR 73 ml/min/1.73sqm Normal [facility] ([place]) Comment on above: Result Comment: GFR Population mean for , Non- Americans Ages 20-29 = 116 mL/min/1.73 sq.m. Ages 30-39 = 107 mL/min/1.73 sq.m. Ages 40-49 = 99 mL/min/1.73 sq.m. Ages 50-59 = 93 mL/min/1.73 sq.m. Ages 60-69 = 85 mL/min/1.73 sq.m. Ages 70+ = 75 mL/min/1.73 sq.m. Chronic Kidney Disease: Less than 60 mL/min/1.73 square meters End Stage Renal Disease: Less than 15 mL/min/1.73 square meters Performed By: #### U A, PREGU #### [facility] [address] [place], [place] [address] GFR Non- 61 ml/min/1.73sqm Normal [facility] ([place]) Comment on above: Result Comment: GFR Population mean for , Non- Americans Ages 20-29 = 116 mL/min/1.73 sq.m. Ages 30-39 = 107 mL/min/1.73 sq.m. Ages 40-49 = 99 mL/min/1.73 sq.m. Ages 50-59 = 93 mL/min/1.73 sq.m. Ages 60-69 = 85 mL/min/1.73 sq.m. Ages 70+ = 75 mL/min/1.73 sq.m. Chronic Kidney Disease: Less than 60 mL/min/1.73 square meters End Stage Renal Disease: Less than 15 mL/min/1.73 square meters Performed By: #### U A, PREGU #### [facility] [address] [place], [place] [address] .MDWon 05-23-2023 Monocyte Distribution Width Not tested Normal 0.00-20.00 [facility] ([place]) Comment on above: Result Comment: MDW testing unable to be performed on [id number] instrumentation. Performed By: #### U A, PREGU #### [facility] [address] [place], [place] [address] .NEUABSon 05-23-2023 Neutrophil, Absolute 7.5 10 3/mcL High 2.9-6.2 [facility] ([place]) Comment on above: Performed By: #### U A, PREGU #### [facility] [address] [place], [place] [address] CBCon 05-23-2023 Erythrocyte distribution width (RBC) [Ratio] 12.8 % Normal 11.5-14.5 [facility] ([place]) Comment on above: Performed By: #### U A, PREGU #### [facility] [address] [place], [place] [address] Hematocrit (Bld) [Volume fraction] 39.4 % Normal 37.0-47.0 [facility] ([place]) Comment on above: Performed By: #### U A, PREGU #### [facility] [address] [place], [place] [address] Hgb 13.4 G/dL Normal 12.0-16.0 [facility] ([place]) Comment on above: Performed By: #### U A, PREGU #### [facility] [address] [place], [place] [address] MCH (RBC) [Entitic mass] 30.5 pg Normal 27.0-31.2 [facility] ([place]) Comment on above: Performed By: #### U A, PREGU #### [facility] [address] [place], [place] [address] MCHC 34.1 G/dL Normal 33.0-37.0 [facility] ([place]) Comment on above: Performed By: #### U A, PREGU #### [facility] [address] [place], [place] [address] MCV (RBC) [Entitic vol] 89.5 fL Normal 80.0-94.0 [facility] ([place]) Comment on above: Performed By: #### U A, PREGU #### [facility] [address] [place], [place] [address] Platelet 425 10 3/mcL High 130-400 [facility] ([place]) Comment on above: Performed By: #### U Abigail, PREGU #### [facility] [address] [place], [place] [address] Platelet mean volume (Bld) [Entitic vol] 6.2 fL Low 7.4-10.4 [facility] ([place]) Comment on above: Performed By: #### U Abigail, PREGU #### [facility] [address] [place], [place] [address] RBC 4.40 10 6/mcL Normal 4.20-5.40 [facility] ([place]) Comment on above: Performed By: #### U A, PREGU #### [facility] [address] [place], [place] [address] WBC 10.4 10 3/mcL Normal 4.6-10.8 [facility] ([place]) Comment on above: Performed By: #### U A, PREGU #### [facility] [address] [place], [place] [address] CMPon 05-23-2023 Albumin Level 3.8 G/dL Normal 3.5-5.0 [facility] ([place]) Comment on above: Performed By: #### U A, PREGU #### [facility] [address] [place], [place] [address] Albumin/Globulin [Mass ratio] 1.1 {ratio} Normal 1.1-2.5 [facility] ([place]) Comment on above: Performed By: #### U A, PREGU #### [facility] [address] [place], [place] [address] ALP [Catalytic activity/Vol] 91 U/L Normal 40-135 [facility] ([place]) Comment on above: Performed By: #### U A, PREGU #### [facility] [address] [place], [place] [address] ALT [Catalytic activity/Vol] 53 U/L Normal 14-59 [facility] ([place]) Comment on above: Performed By: #### U A, PREGU #### [facility] [address] [place], [place] [address] AST [Catalytic activity/Vol] 33 U/L Normal 10-40 [facility] ([place] Comment on above: Performed By: #### U A, PREGU #### [facility] [address] [place], [place] [address] Bili Total 0.2 mg/dL Normal 0.2-1.0 [facility] ([place]) Comment on above: Result Comment: Use of this assay is not recommended for patients undergoing treatment with eltrombopag due to the potential for falsely elevated results. Performed By: #### U A, PREGU #### [facility] [address] [place], [place] [address] BUN/Creatinine Ratio 14 ratio Normal 7-27 [facility] ([place]) Comment on above: Performed By: #### U A, PREGU #### [facility] [address] [place], [place] [address] Calcium [Mass/Vol] 9.1 mg/dL Normal 8.4-10.2 [facility] ([place]) Comment on above: Performed By: #### U A, PREGU #### [facility] [address] [place], [place] [address] Chloride [Moles/Vol] 100 mmol/L Normal 98-107 [facility] ([place]) Comment on above: Performed By: #### U A, PREGU #### [facility] [address] [place], [place] [address] CO2 [Moles/Vol] 27 mmol/L Normal 22-29 [facility] ([place]) Comment on above: Performed By: #### U A, PREGU #### [facility] [address] [place], [place] [address] Creatinine [Mass/Vol] 0.98 mg/dL Normal 0.55-1.02 [facility] ([place]) Comment on above: Performed By: #### U A, PREGU #### [facility] [address] [place], [place] [address] Electrolyte Balance 9.0 mEq/L Normal 4.0-15.0 [facility] ([place]) Comment on above: Performed By: #### U A, PREGU #### [facility] [address] [place], [place] [address] Globulin 3.5 G/dL Normal [facility] ([place] Comment on above: Performed By: #### U A, PREGU #### [facility] [address] [place], [place] [address] Glucose [Mass/Vol] 136 mg/dL High 70-105 [facility] ([place]) Comment on above: Performed By: #### U A, PREGU #### [facility] [address] [place], [place] [address] Potassium [Moles/Vol] 3.9 mmol/L Normal 3.5-5.1 [facility] ([place]) Comment on above: Performed By: #### U A, PREGU #### [facility] [address] [place], [place] [address] Sodium [Moles/Vol] 136 mmol/L Normal 136-145 [facility] ([place]) Comment on above: Performed By: #### U A, PREGU #### [facility] [address] [place], [place] [address] Total Protein 7.3 G/dL Normal 6.4-8.2 [facility] ([place] Comment on above: Performed By: #### U A, PREGU #### [facility] [address] [place], [place] [address] Urea nitrogen [Mass/Vol] 14 mg/dL Normal 7-18 [facility] ([place] Comment on above: Performed By: #### U A, PREGU #### [facility] [address] [place], [place] [address] LABORATORYOrdered By: Kiarra Jacobo on 05-23-2023 Appearance (U) Clear (05/23/23 3:13 AM) Invalid Interpretation Code Clear AO Auto Urine SS Bilirubin Ql (U) Negative (05/23/23 3:13 AM) Invalid Interpretation Code Negative AO Auto Urine SS Color (U) Yellow (05/23/23 3:13 AM) Invalid Interpretation Code AO Auto Urine SS Glucose Test strip (U) [Mass/Vol] Negative Invalid Interpretation Code Negative AO Auto Urine SS HCG ( test) Ql Negative (05/23/23 3:13 AM) Invalid Interpretation Code AO Manual Urine SS Hemoglobin Auto test strip (U) [Mass/Vol] Negative (05/23/23 3:13 AM) Invalid Interpretation Code Negative AO Auto Urine SS Ketones Ql (U) Negative Invalid Interpretation Code Negative AO Auto Urine SS test (u) int Not detected Invalid Interpretation Code AO Manual Urine SS UA Leuk Est Negative (05/23/23 3:13 AM) Invalid Interpretation Code Negative AO Auto Urine SS UA Nitrite Negative (05/23/23 3:13 AM) Invalid Interpretation Code Negative AO Auto Urine SS UA pH 7.0 (05/23/23 3:13 AM) Invalid Interpretation Code 5.0 - 8.0 AO Auto Urine SS UA Protein Negative Invalid Interpretation Code Negative AO Auto Urine SS UA Spec Grav 1.015 (05/23/23 3:13 AM) Invalid Interpretation Code 1.015-1.025 AO Auto Urine SS UA Specimen Type Void (05/23/23 3:13 AM) Invalid Interpretation Code AO Auto Urine SS UA Urobilinogen 0.2 E.U./dL Invalid Interpretation Code 0.2-1.0 AO Auto Urine SS Monocyte distribution width Auto (Bld) [Entitic vol] Not tested 1 (05/23/23 3:05 AM) Invalid Interpretation Code 0.00 - 20.00 AO Hematology S Comment on above: Result Comment: MDW testing unable to be performed on [id number] instrumentation. LABORATORYOrdered By: SYSTEM SYSTEM on 05-23-2023 Albumin BCP dye [Mass/Vol] 3.8 G/dL Invalid Interpretation Code 3.5 - 5.0 G/dL AO ADM SS Albumin/Globulin [Mass ratio] 1.1 {ratio} Invalid Interpretation Code 1.1 - 2.5 ratio AO ADM SS ALP [Catalytic activity/Vol] 91 U/L Invalid Interpretation Code 40 - 135 U/L AO ADM SS ALT With P-5'-P [Catalytic activity/Vol] 53 U/L Invalid Interpretation Code 14 - 59 U/L AO ADM SS AST With P-5'-P [Catalytic activity/Vol] 33 U/L Invalid Interpretation Code 10 - 40 U/L AO ADM SS Basophil, Absolute 0.0 103/mcL Invalid Interpretation Code 0.0 - 0.2 10^3/mcL AO Workflow SS Basophils/100 WBC (Bld) 0.4 % Invalid Interpretation Code 0.0 - 2.5 % AO Workflow SS Bilirubin [Mass/Vol] 0.2 mg/dL Invalid Interpretation Code 0.2 - 1.0 mg/dL AO ADM SS Comment on above: Interpretive Data: U se of this assay is not recommended for patients undergoing treatment with eltrombopag due to the potential for falsely elevated results. Calcium [Mass/Vol] 9.1 mg/dL Invalid Interpretation Code 8.4 - 10.2 mg/dL AO ADM SS Chloride [Moles/Vol] 100 mmol/L Invalid Interpretation Code 98 - 107 mmol/L AO ADM SS CO2 [Moles/Vol] 27 mmol/L Invalid Interpretation Code 22 - 29 mmol/L AO ADM SS Creatinine [Mass/Vol] 0.98 mg/dL Invalid Interpretation Code 0.55 - 1.02 mg/dL AO ADM SS Electrolyte Balance 9.0 mEq/L Invalid Interpretation Code 4.0 - 15.0 mEq/L AO ADM SS Eosinophil, Absolute 0.2 103/mcL Invalid Interpretation Code 0.0 - 0.4 10^3/mcL AO Workflow SS Eosinophils/100 WBC (Bld) 2.6 % Invalid Interpretation Code 0.0 - 7.0 % AO Workflow SS Erythrocyte distribution width (RBC) [Ratio] 12.8 % Invalid Interpretation Code 11.5 - 14.5 % AO Workflow SS GFR/1.73 sq M.predicted among blacks MDRD (S/P/Bld) [Vol rate/Area] 73 ml/min/1.73sqm Invalid Interpretation Code AO Chemistry S Comment on above: Interpretive Data: GFR Population mean for , Non- Americans Ages 20-29 = 116 mL/min/1.73 sq.m. Ages 30-39 = 107 mL/min/1.73 sq.m. Ages 40-49 = 99 mL/min/1.73 sq.m. Ages 50-59 = 93 mL/min/1.73 sq.m. Ages 60-69 = 85 mL/min/1.73 sq.m. Ages 70+ = 75 mL/min/1.73 sq.m. Chronic Kidney Disease: Less than 60 mL/min/1.73 square meters End Stage Renal Disease: Less than 15 mL/min/1.73 square meters GFR/1.73 sq M.predicted among non-blacks MDRD (S/P/Bld) [Vol rate/Area] 61 ml/min/1.73sqm Invalid Interpretation Code AO Chemistry S Comment on above: Interpretive Data: GFR Population mean for , Non- Americans Ages 20-29 = 116 mL/min/1.73 sq.m. Ages 30-39 = 107 mL/min/1.73 sq.m. Ages 40-49 = 99 mL/min/1.73 sq.m. Ages 50-59 = 93 mL/min/1.73 sq.m. Ages 60-69 = 85 mL/min/1.73 sq.m. Ages 70+ = 75 mL/min/1.73 sq.m. Chronic Kidney Disease: Less than 60 mL/min/1.73 square meters End Stage Renal Disease: Less than 15 mL/min/1.73 square meters Globulin 3.5 G/dL Invalid Interpretation Code AO ADM SS Glucose [Mass/Vol] 136 mg/dL Invalid Interpretation Code 70 - 105 mg/dL AO ADM SS Hematocrit (Bld) [Volume fraction] 39.4 % Invalid Interpretation Code 37.0 - 47.0 % AO Workflow SS Hemoglobin (Bld) [Mass/Vol] 13.4 G/dL Invalid Interpretation Code 12.0 - 16.0 G/dL AO Workflow SS Lipase [Catalytic activity/Vol] 130 U/L Invalid Interpretation Code 16 - 77 U/L AO ADM SS Lymphocyte, Absolute 2.1 103/mcL Invalid Interpretation Code 0.8 - 3.9 10^3/mcL AO Workflow SS Lymphocytes/100 WBC (Bld) 20.1 % Invalid Interpretation Code 10.0 - 50.0 % AO Workflow SS MCH (RBC) [Entitic mass] 30.5 pg Invalid Interpretation Code 27.0 - 31.2 pg AO Workflow SS MCHC 34.1 G/dL Invalid Interpretation Code 33.0 - 37.0 G/dL AO Workflow SS MCV (RBC) [Entitic vol] 89.5 fL Invalid Interpretation Code 80.0 - 94.0 fL AO Workflow SS Monocyte, Absolute 0.5 103/mcL Invalid Interpretation Code 0.2 - 1.0 10^3/mcL AO Workflow SS Monocytes/100 WBC (Bld) 5.1 % Invalid Interpretation Code 1.7 - 13.0 % AO Workflow SS Neutrophil, Absolute 7.5 103/mcL Invalid Interpretation Code 2.9 - 6.2 10^3/mcL AO Workflow SS Neutrophils/100 WBC (Bld) 71.6 % Invalid Interpretation Code 37.0 - 80.0 % AO Workflow SS Platelet mean volume (Bld) [Entitic vol] 6.2 fL Invalid Interpretation Code 7.4 - 10.4 fL AO Workflow SS Platelets (Bld) [#/Vol] 425 103/mcL Invalid Interpretation Code 130 - 400 10^3/mcL AO Workflow SS Potassium [Moles/Vol] 3.9 mmol/L Invalid Interpretation Code 3.5 - 5.1 mmol/L AO ADM SS Protein [Mass/Vol] 7.3 G/dL Invalid Interpretation Code 6.4 - 8.2 G/dL AO ADM SS RBC (Bld) [#/Vol] 4.40 106/mcL Invalid Interpretation Code 4.20 - 5.40 10^6/mcL AO Workflow SS Sodium [Moles/Vol] 136 mmol/L Invalid Interpretation Code 136 - 145 mmol/L AO ADM SS Urea nitrogen [Mass/Vol] 14 mg/dL Invalid Interpretation Code 7 - 18 mg/dL AO ADM SS Urea nitrogen/Creatinine [Mass ratio] 14 ratio Invalid Interpretation Code 7 - 27 ratio AO ADM SS WBC (Bld) [#/Vol] 10.4 103/mcL Invalid Interpretation Code 4.6 - 10.8 10^3/mcL AO Workflow SS LIPon 05-23-2023 Lipase Level 130 U/L High 16-77 [facility] ([place]) Comment on above: Performed By: #### U A, PREGU #### [facility] [address] [place], [place] [address] PREGUon 05-23-2023 HCG ( test) Ql (U) Negative Normal [facility] ([place]) Comment on above: Performed By: #### U A, PREGU #### [facility] [address] [place] [id number] test (u) int Not detected Invalid Interpretation Code [facility] ([place]) Comment on above: Performed By: #### U A, PREGU #### [facility] [address] [place], [place] [address] UAon 05-23-2023 Color (U) Yellow Normal [facility] ([place] Comment on above: Performed By: #### U A, PREGU #### [facility] [address] [place] [id number] Glucose (U) [Mass/Vol] Negative Normal Negative [facility] ([place] Comment on above: Performed By: #### U A, PREGU #### [facility] [address] [place], [place] [address] Ketones Ql (U) Negative Normal Negative [facility] ([place]) Comment on above: Performed By: #### U A, PREGU #### [facility] [address] [place], [place] [address] UA Appear Clear Normal Clear [facility] ([place] Comment on above: Performed By: #### U A, PREGU #### [facility] [address] [place], [place] [address] UA Blood Negative Normal Negative [facility] ([place] Comment on above: Performed By: #### U A, PREGU #### [facility] [address] [place], [place] [address] UA Leuk Est Negative Normal Negative [facility] ([place]) Comment on above: Performed By: #### U A, PREGU #### Sean [facility] [address] [place], [place] [address] UA Nitrite Negative Normal Negative [facility] ([place] Comment on above: Performed By: #### U A, PREGU #### Sean [facility] [address] [place], [place] [address] UA pH 7.0 Normal 5.0 - 8.0 [facility] ([place] Comment on above: Performed By: #### U A, PREGU #### Sean [address] [place], [place] [address] UA Protein Negative Normal Negative [facility] ([place] Comment on above: Performed By: #### U A, PREGU #### [facility] [address] [place] [id number] UA Spec Grav 1.015 Normal 1.015-1.025 [facility] ([place]) Comment on above: Performed By: #### U A, PREGU #### [facility] [address] [place] [id number] UA Specimen Type Void Normal [facility] ([place]) Comment on above: Performed By: #### U A, PREGU #### [facility] [address] [place] [id number] UA Urobilinogen 0.2 E.U./dL Normal 0.2-1.0 [facility] ([place]) Comment on above: Performed By: #### U A, PREGU #### Sean Hunters [address] [place] [phone] Urobilinogen (U) [Mass/Vol] Negative Normal Negative [facility] ([place]) Comment on above: Performed By: #### U A, PREGU #### Sean Hunters [address] [place], [place] [id number] .Auto Diffon 05-19-2023 Basophil, Absolute 0.1 10 3/mcL Normal 0.0-0.2 [facility] ([place]) Comment on above: Performed By: #### A DIFF, ANEU, CMP, MG, GFR, LD, CRP, CBC, ESR #### [address] [address] Basophils/100 WBC (Bld) 1.1 % Normal 0.0-2.5 [facility] ([place]) Comment on above: Performed By: #### A DIFF, ANEU, CMP, MG, GFR, LD, CRP, CBC, ESR #### [address] [address] Eosinophil, Absolute 0.2 10 3/mcL Normal 0.0-0.4 [facility] ([place]) Comment on above: Performed By: #### A DIFF, ANEU, CMP, MG, GFR, LD, CRP, CBC, ESR #### [address] [address] Eosinophils/100 WBC (Bld) 1.5 % Normal 0.0-7.0 [facility] ([place]) Comment on above: Performed By: #### A DIFF, ANEU, CMP, MG, GFR, LD, CRP, CBC, ESR #### [address] [address] Lymphocyte, Absolute 2.2 10 3/mcL Normal 0.8-3.9 [facility] ([place]) Comment on above: Performed By: #### A DIFF, ANEU, CMP, MG, GFR, LD, CRP, CBC, ESR #### [address] [address] Lymphocytes/100 WBC (Bld) 17.0 % Normal 10.0-50.0 [facility] ([place]) Comment on above: Performed By: #### A DIFF, ANEU, CMP, MG, GFR, LD, CRP, CBC, ESR #### [address] [address] Monocyte, Absolute 0.8 10 3/mcL Normal 0.2-1.0 [facility] ([place]) Comment on above: Performed By: #### A DIFF, ANEU, CMP, MG, GFR, LD, CRP, CBC, ESR #### [address] [address] Monocytes/100 WBC (Bld) 6.4 % Normal 1.7-13.0 [facility] ([place]) Comment on above: Performed By: #### A DIFF, ANEU, CMP, MG, GFR, LD, CRP, CBC, ESR #### Sean [address] [address] Neutrophils/100 WBC (Bld) 74.0 % Normal 37.0-80.0 [facility] ([place]) Comment on above: Performed By: #### A DIFF, ANEU, CMP, MG, GFR, LD, CRP, CBC, ESR #### Sean [address] [address] .GFRon 05-19-2023 GFR Non- 54 ml/min/1.73sqm Normal [facility] ([place]) Comment on above: Result Comment: GFR Population mean for , Non- Americans Ages 20-29 = 116 mL/min/1.73 sq.m. Ages 30-39 = 107 mL/min/1.73 sq.m. Ages 40-49 = 99 mL/min/1.73 sq.m. Ages 50-59 = 93 mL/min/1.73 sq.m. Ages 60-69 = 85 mL/min/1.73 sq.m. Ages 70+ = 75 mL/min/1.73 sq.m. Chronic Kidney Disease: Less than 60 mL/min/1.73 square meters End Stage Renal Disease: Less than 15 mL/min/1.73 square meters Performed By: #### U A, PREGU #### Sean Hunters [address] [place], [place] [address] GFR 65 ml/min/1.73sqm Normal [facility] ([place]) Comment on above: Result Comment: GFR Population mean for , Non- Americans Ages 20-29 = 116 mL/min/1.73 sq.m. Ages 30-39 = 107 mL/min/1.73 sq.m. Ages 40-49 = 99 mL/min/1.73 sq.m. Ages 50-59 = 93 mL/min/1.73 sq.m. Ages 60-69 = 85 mL/min/1.73 sq.m. Ages 70+ = 75 mL/min/1.73 sq.m. Chronic Kidney Disease: Less than 60 mL/min/1.73 square meters End Stage Renal Disease: Less than 15 mL/min/1.73 square meters Performed By: #### U A, PREGU #### [facility] [address] [place], [place] [address] .MDWon 05-19-2023 Monocyte Distribution Width 17.04 Normal 0.00-20.00 [facility] ([place]) Comment on above: Result Comment: For ED adult patients suspected of sepsis, MDW<=20.0 does not rule out sepsis or risk of sepsis Performed By: #### A DIFF, ANEU, CMP, MG, GFR, LD, CRP, CBC, ESR #### [place] [address] .Morphon 05-19-2023 Platelet Estimate Increased Normal [facility] ([place]) Comment on above: Performed By: #### A DIFF, ANEU, CMP, MG, GFR, LD, CRP, CBC, ESR #### [place] [address] .NEUABSon 05-19-2023 Neutrophil, Absolute 9.4 10 3/mcL High 2.9-6.2 [facility] ([place]) Comment on above: Performed By: #### A DIFF, ANEU, CMP, MG, GFR, LD, CRP, CBC, ESR #### [place] [address] .Urinalysis Microscopic (AO) on 05-19-2023 UA Bacteria Trace Abnormal [facility] ([place]) Comment on above: Performed By: #### U A, PREGU #### Sean Hunters [address] [place] [phone] UA RBC 0-5 Abnormal None Seen [facility] ([place] Comment on above: Performed By: #### U A, PREGU #### Sean Hunters [address] [place] [phone] UA Squam Epithelial 0-5 Abnormal None Seen [facility] ([place]) Comment on above: Performed By: #### U A, PREGU #### [facility] [address] [place], [place] [address] UA WBC LOADED Abnormal None Seen [facility] ([place] Comment on above: Performed By: #### U A, PREGU #### [facility] [address] [place], [place] [address] CBCon 05-19-2023 Erythrocyte distribution width (RBC) [Ratio] 13.7 % Normal 11.5-14.5 [facility] ([place]) Comment on above: Performed By: #### A DIFF, ANEU, CMP, MG, GFR, LD, CRP, CBC, ESR #### [address] [address] Hematocrit (Bld) [Volume fraction] 40.0 % Normal 37.0-47.0 [facility] ([place] Comment on above: Performed By: #### A DIFF, ANEU, CMP, MG, GFR, LD, CRP, CBC, ESR #### [place] [phone] Hgb 13.4 G/dL Normal 12.0-16.0 [facility] ([place]) Comment on above: Performed By: #### A DIFF, ANEU, CMP, MG, GFR, LD, CRP, CBC, ESR #### [place] [phone] MCH (RBC) [Entitic mass] 29.8 pg Normal 27.0-31.2 [facility] ([place] Comment on above: Performed By: #### A DIFF, ANEU, CMP, MG, GFR, LD, CRP, CBC, ESR #### [place] [phone] MCHC 33.5 G/dL Normal 33.0-37.0 [facility] ([place] Comment on above: Performed By: #### A DIFF, ANEU, CMP, MG, GFR, LD, CRP, CBC, ESR #### [place] [phone] MCV (RBC) [Entitic vol] 89.0 fL Normal 80.0-94.0 [facility] ([place] Comment on above: Performed By: #### A DIFF, ANEU, CMP, MG, GFR, LD, CRP, CBC, ESR #### [address] [address] Platelet 498 10 3/mcL High 130-400 [facility] ([place]) Comment on above: Performed By: #### A DIFF, ANEU, CMP, MG, GFR, LD, CRP, CBC, ESR #### [address] [address] Platelet mean volume (Bld) [Entitic vol] 6.1 fL Low 7.4-10.4 [facility] ([place]) Comment on above: Performed By: #### A DIFF, ANEU, CMP, MG, GFR, LD, CRP, CBC, ESR #### [address] [address] RBC 4.49 10 6/mcL Normal 4.20-5.40 [facility] ([place]) Comment on above: Performed By: #### A DIFF, ANEU, CMP, MG, GFR, LD, CRP, CBC, ESR #### Sean [address] [address] WBC 12.7 10 3/mcL High 4.6-10.8 [facility] ([place]) Comment on above: Performed By: #### A DIFF, ANEU, CMP, MG, GFR, LD, CRP, CBC, ESR #### [address] [address] CMPon 05-19-2023 Albumin Level 3.7 G/dL Normal 3.5-5.0 [facility] ([place]) Comment on above: Performed By: #### U A, PREGU #### Sean Hunters [address] [place], [place] [address] Albumin/Globulin [Mass ratio] 1.0 {ratio} Low 1.1-2.5 [facility] ([place]) Comment on above: Performed By: #### U A, PREGU #### Sean Hunters [address] [place], [place] [address] ALP [Catalytic activity/Vol] 100 U/L Normal 40-135 [facility] ([place]) Comment on above: Performed By: #### U A, PREGU #### [facility] [address] [place], [place] [address] ALT [Catalytic activity/Vol] 58 U/L Normal 14-59 [facility] ([place] Comment on above: Performed By: #### U A, PREGU #### [facility] [address] [place], [place] [address] AST [Catalytic activity/Vol] 27 U/L Normal 10-40 [facility] ([place] Comment on above: Performed By: #### U A, PREGU #### [facility] [address] [place], [place] [address] Bili Total 0.2 mg/dL Normal 0.2-1.0 [facility] ([place]) Comment on above: Result Comment: Use of this assay is not recommended for patients undergoing treatment with eltrombopag due to the potential for falsely elevated results. Performed By: #### U A, PREGU #### [facility] [address] [place], [place] [address] BUN/Creatinine Ratio 16 ratio Normal 7-27 [facility] ([place]) Comment on above: Performed By: #### U A, PREGU #### [facility] [address] [place], [place] [address] Calcium [Mass/Vol] 9.1 mg/dL Normal 8.4-10.2 [facility] ([place]) Comment on above: Performed By: #### U A, PREGU #### [place] Hunters [address] [place], [place] [address] Chloride [Moles/Vol] 100 mmol/L Normal 98-107 [facility] ([place]) Comment on above: Performed By: #### U A, PREGU #### [facility] [address] [place], [place] [address] CO2 [Moles/Vol] 27 mmol/L Normal 22-29 [facility] ([place]) Comment on above: Performed By: #### U A, PREGU #### [facility] [address] [place], [place] [address] Creatinine [Mass/Vol] 1.09 mg/dL High 0.55-1.02 [facility] ([place]) Comment on above: Performed By: #### U A, PREGU #### Sean Loaizan [address] [place], [place] [address] Electrolyte Balance 12.0 mEq/L Normal 4.0-15.0 [facility] ([place]) Comment on above: Performed By: #### U A, PREGU #### Sean Reynolds [address] [place], [place] [address] Globulin 3.8 G/dL Normal [facility] ([place] Comment on above: Performed By: #### U A, PREGU #### Sean Hunters [address] [place], [place] [address] Glucose [Mass/Vol] 117 mg/dL High 70-105 [facility] ([place]) Comment on above: Performed By: #### U A, PREGU #### Seanoz DavisHunters [address] [place], [place] [address] Potassium [Moles/Vol] 4.3 mmol/L Normal 3.5-5.1 [facility] ([place]) Comment on above: Performed By: #### U A, PREGU #### Sean Hunters [address] [place], [place] [address] Sodium [Moles/Vol] 139 mmol/L Normal 136-145 [facility] ([place]) Comment on above: Performed By: #### U A, PREGU #### Seanoz Loaizan [address] [place], [place] [address] Total Protein 7.5 G/dL Normal 6.4-8.2 [facility] ([place]) Comment on above: Performed By: #### U A, PREGU #### Sean Hunters [address] [place], [place] [address] Urea nitrogen [Mass/Vol] 17 mg/dL Normal 7-18 [facility] ([place] Comment on above: Performed By: #### U A, PREGU #### Sean Hunters [address] [place], [place] [address] LABORATORYOrdered By: SYSTEM SYSTEM on 05-19-2023 Albumin BCP dye [Mass/Vol] 3.7 G/dL Invalid Interpretation Code 3.5 - 5.0 G/dL AO ADM SS Albumin/Globulin [Mass ratio] 1.0 {ratio} Invalid Interpretation Code 1.1 - 2.5 ratio AO ADM SS ALP [Catalytic activity/Vol] 100 U/L Invalid Interpretation Code 40 - 135 U/L AO ADM SS ALT With P-5'-P [Catalytic activity/Vol] 58 U/L Invalid Interpretation Code 14 - 59 U/L AO ADM SS AST With P-5'-P [Catalytic activity/Vol] 27 U/L Invalid Interpretation Code 10 - 40 U/L AO ADM SS Basophil, Absolute 0.1 103/mcL Invalid Interpretation Code 0.0 - 0.2 10^3/mcL AO Workflow SS Basophils/100 WBC (Bld) 1.1 % Invalid Interpretation Code 0.0 - 2.5 % AO Workflow SS Bilirubin [Mass/Vol] 0.2 mg/dL Invalid Interpretation Code 0.2 - 1.0 mg/dL AO ADM SS Comment on above: Interpretive Data: U se of this assay is not recommended for patients undergoing treatment with eltrombopag due to the potential for falsely elevated results. Calcium [Mass/Vol] 9.1 mg/dL Invalid Interpretation Code 8.4 - 10.2 mg/dL AO ADM SS Chloride [Moles/Vol] 100 mmol/L Invalid Interpretation Code 98 - 107 mmol/L AO ADM SS CO2 [Moles/Vol] 27 mmol/L Invalid Interpretation Code 22 - 29 mmol/L AO ADM SS Creatinine [Mass/Vol] 1.09 mg/dL Invalid Interpretation Code 0.55 - 1.02 mg/dL AO ADM SS Electrolyte Balance 12.0 mEq/L Invalid Interpretation Code 4.0 - 15.0 mEq/L AO ADM SS Eosinophil, Absolute 0.2 103/mcL Invalid Interpretation Code 0.0 - 0.4 10^3/mcL AO Workflow SS Eosinophils/100 WBC (Bld) 1.5 % Invalid Interpretation Code 0.0 - 7.0 % AO Workflow SS Erythrocyte distribution width (RBC) [Ratio] 13.7 % Invalid Interpretation Code 11.5 - 14.5 % AO Workflow SS GFR/1.73 sq M.predicted among blacks MDRD (S/P/Bld) [Vol rate/Area] 65 ml/min/1.73sqm Invalid Interpretation Code AO Chemistry S Comment on above: Interpretive Data: GFR Population mean for , Non- Americans Ages 20-29 = 116 mL/min/1.73 sq.m. Ages 30-39 = 107 mL/min/1.73 sq.m. Ages 40-49 = 99 mL/min/1.73 sq.m. Ages 50-59 = 93 mL/min/1.73 sq.m. Ages 60-69 = 85 mL/min/1.73 sq.m. Ages 70+ = 75 mL/min/1.73 sq.m. Chronic Kidney Disease: Less than 60 mL/min/1.73 square meters End Stage Renal Disease: Less than 15 mL/min/1.73 square meters GFR/1.73 sq M.predicted among non-blacks MDRD (S/P/Bld) [Vol rate/Area] 54 ml/min/1.73sqm Invalid Interpretation Code AO Chemistry S Comment on above: Interpretive Data: GFR Population mean for , Non- Americans Ages 20-29 = 116 mL/min/1.73 sq.m. Ages 30-39 = 107 mL/min/1.73 sq.m. Ages 40-49 = 99 mL/min/1.73 sq.m. Ages 50-59 = 93 mL/min/1.73 sq.m. Ages 60-69 = 85 mL/min/1.73 sq.m. Ages 70+ = 75 mL/min/1.73 sq.m. Chronic Kidney Disease: Less than 60 mL/min/1.73 square meters End Stage Renal Disease: Less than 15 mL/min/1.73 square meters Globulin 3.8 G/dL Invalid Interpretation Code AO ADM SS Glucose [Mass/Vol] 117 mg/dL Invalid Interpretation Code 70 - 105 mg/dL AO ADM SS Hematocrit (Bld) [Volume fraction] 40.0 % Invalid Interpretation Code 37.0 - 47.0 % AO Workflow SS Hemoglobin (Bld) [Mass/Vol] 13.4 G/dL Invalid Interpretation Code 12.0 - 16.0 G/dL AO Workflow SS Lipase [Catalytic activity/Vol] 104 U/L Invalid Interpretation Code 16 - 77 U/L AO ADM SS Lymphocyte, Absolute 2.2 103/mcL Invalid Interpretation Code 0.8 - 3.9 10^3/mcL AO Workflow SS Lymphocytes/100 WBC (Bld) 17.0 % Invalid Interpretation Code 10.0 - 50.0 % AO Workflow SS MCH (RBC) [Entitic mass] 29.8 pg Invalid Interpretation Code 27.0 - 31.2 pg AO Workflow SS MCHC 33.5 G/dL Invalid Interpretation Code 33.0 - 37.0 G/dL AO Workflow SS MCV (RBC) [Entitic vol] 89.0 fL Invalid Interpretation Code 80.0 - 94.0 fL AO Workflow SS Monocyte distribution width Auto (Bld) [Entitic vol] 17.04 1 Invalid Interpretation Code 0.00 - 20.00 AO Workflow SS Comment on above: Result Comment: For ED adult patients suspected of sepsis, MDW<=20.0 does not rule out sepsis or risk of sepsis Monocyte, Absolute 0.8 103/mcL Invalid Interpretation Code 0.2 - 1.0 10^3/mcL AO Workflow SS Monocytes/100 WBC (Bld) 6.4 % Invalid Interpretation Code 1.7 - 13.0 % AO Workflow SS Neutrophil, Absolute 9.4 103/mcL Invalid Interpretation Code 2.9 - 6.2 10^3/mcL AO Workflow SS Neutrophils/100 WBC (Bld) 74.0 % Invalid Interpretation Code 37.0 - 80.0 % AO Workflow SS Platelet mean volume (Bld) [Entitic vol] 6.1 fL Invalid Interpretation Code 7.4 - 10.4 fL AO Workflow SS Platelets (Bld) [#/Vol] 498 103/mcL Invalid Interpretation Code 130 - 400 10^3/mcL AO Workflow SS Potassium [Moles/Vol] 4.3 mmol/L Invalid Interpretation Code 3.5 - 5.1 mmol/L AO ADM SS Protein [Mass/Vol] 7.5 G/dL Invalid Interpretation Code 6.4 - 8.2 G/dL AO ADM SS RBC (Bld) [#/Vol] 4.49 106/mcL Invalid Interpretation Code 4.20 - 5.40 10^6/mcL AO Workflow SS Sodium [Moles/Vol] 139 mmol/L Invalid Interpretation Code 136 - 145 mmol/L AO ADM SS Urea nitrogen [Mass/Vol] 17 mg/dL Invalid Interpretation Code 7 - 18 mg/dL AO ADM SS Urea nitrogen/Creatinine [Mass ratio] 16 ratio Invalid Interpretation Code 7 - 27 ratio AO ADM SS WBC (Bld) [#/Vol] 12.7 103/mcL Invalid Interpretation Code 4.6 - 10.8 10^3/mcL AO Workflow SS LABORATORYOrdered By: Bessy Bhatti on 05-19-2023 Platelet Estimate Increased (05/19/23 7:06 PM) Invalid Interpretation Code AO Hematology S LABORATORYOrdered By: Cynthia Lucia on 05-19-2023 Appearance (U) Clear (05/19/23 6:00 PM) Invalid Interpretation Code Clear AO Auto Urine SS Bacteria LM.HPF (Urine sed) [#/Area] Trace /HPF Invalid Interpretation Code AO Auto Urine SS Bilirubin Ql (U) Negative (05/19/23 6:00 PM) Invalid Interpretation Code Negative AO Auto Urine SS Color (U) Yellow (05/19/23 6:00 PM) Invalid Interpretation Code AO Auto Urine SS Glucose Test strip (U) [Mass/Vol] Negative Invalid Interpretation Code Negative AO Auto Urine SS Hemoglobin Auto test strip (U) [Mass/Vol] Trace *ABN* (05/19/23 6:00 PM) Invalid Interpretation Code Negative AO Auto Urine SS UA Leuk Est Moderate *ABN* (05/19/23 6:00 PM) Invalid Interpretation Code Negative AO Auto Urine SS UA Nitrite Negative (05/19/23 6:00 PM) Invalid Interpretation Code Negative AO Auto Urine SS UA pH 6.0 (05/19/23 6:00 PM) Invalid Interpretation Code 5.0 - 8.0 AO Auto Urine SS UA RBC 0-5 /HPF Invalid Interpretation Code None Seen AO Auto Urine SS UA Spec Grav 1.015 (05/19/23 6:00 PM) Invalid Interpretation Code 1.015-1.025 AO Auto Urine SS UA Specimen Type Clean Catch (05/19/23 6:00 PM) Invalid Interpretation Code AO Auto Urine SS UA Squam Epithelial 0-5 /HPF Invalid Interpretation Code None Seen AO Auto Urine SS UA Urobilinogen 0.2 E.U./dL Invalid Interpretation Code 0.2-1.0 AO Auto Urine SS WBC LM.HPF (Urine sed) [#/Area] LOADED /HPF Invalid Interpretation Code None Seen AO Auto Urine SS LIPon 05-19-2023 Lipase Level 104 U/L High 16-77 [facility] ([place]) Comment on above: Performed By: #### A DIFF, ANEU, CMP, MG, GFR, LD, CRP, CBC, ESR #### [address] [place] [id number] [place], [place] [address] UAon 05-19-2023 Color (U) Yellow Normal [facility] ([place]) Comment on above: Performed By: #### U A, PREGU #### Sean Loaizan [address] [place], [place] [address] Glucose (U) [Mass/Vol] Negative Normal Negative [facility] ([place]) Comment on above: Performed By: #### U A, PREGU #### Seanoz DavisHunters [address] [place], [place] [address] UA Appear Clear Normal Clear [facility] ([place] Comment on above: Performed By: #### U A, PREGU #### Seanoz DavisHunters [address] [place], [place] [address] UA Blood Trace Abnormal Negative [facility] ([place] Comment on above: Performed By: #### U A, PREGU #### Sean Davisillon [address] [place], [place] [address] UA Leuk Est Moderate Abnormal Negative [facility] ([place] Comment on above: Performed By: #### U A, PREGU #### Sean Loaizan [address] [place], [place] [address] UA Nitrite Negative Normal Negative [facility] ([place] Comment on above: Performed By: #### U A, PREGU #### Sean Davisillon [address] [place], [place] [address] UA pH 6.0 Normal 5.0 - 8.0 [facility] ([place] Comment on above: Performed By: #### U A, PREGU #### Sean Davisillon [address] [place], [place] [address] UA Spec Grav 1.015 Normal 1.015-1.025 [facility] ([place] Comment on above: Performed By: #### U A, PREGU #### Sean Davisillon [address] [place], [place] [address] UA Specimen Type Clean Catch Normal [facility] ([place] Comment on above: Performed By: #### U A, PREGU #### Sean Hunters [address] [place], [place] [address] UA Urobilinogen 0.2 E.U./dL Normal 0.2-1.0 [facility] ([place] Comment on above: Performed By: #### U A, PREGU #### Sean Hunters [address] [place] [phone] Urobilinogen (U) [Mass/Vol] Negative Normal Negative [facility] ([place] Comment on above: Performed By: #### U A, PREGU #### Sean Hunters [address] [place] [phone] UAOrdered By: Lynn wright on 05-19-2023 Ketones Ql (U) Negative Normal Negative AO Auto Ur ine SS Comment on above: Performed By: #### U A, PREGU #### Sean Hunters [address] [place] [phone] UA Protein Negative Normal Negative AO Auto Urine SS Comment on above: Performed By: #### U A, PREGU #### Sean Hunters [address] [place] [phone] Laboratory - Chemistry and C hemistry - challengeon 05-15-2023 Anion gap [Moles/Vol] 15 mmol/L 10 - 20 [facility] Work Phone: Calcium [Mass/Vol] 9.5 mg/dL 8.6 - 10.6 [facility] Work Phone: Chloride [Moles/Vol] 102 mmol/L 98 - 107 [facility]-P [facility] Work Phone: CO2 [Moles/Vol] 24 mmol/L 21 - 32 [facility] Work Phone: Creatinine [Mass/Vol] 0.61 mg/dL See Below [facility]- [facility] Work Phone: Comment on above: Reference Range: 0.5 0 - 1.05 Glucose [Mass/Vol] 163 mg/dL above high threshold 74 - 99 [facility] Work Phone: Potassium [Moles/Vol] 4.4 mmol/L 3.5 - 5.3 [facility]- [facility] Work Phone: Sodium [Moles/Vol] 137 mmol/L 136 - 145 [facility] Work Phone: Urea nitrogen [Mass/Vol] 10 mg/dL 6 - 23 [facility] Work Phone: Laboratory - Hematology and Cell countson 05-15-2023 Erythrocyte distribution width (RBC) [Ratio] 12.8 % See Below -[facility] Work Phone: Comment on above: Reference Range: 11. 5 - 14.5 Hematocrit (Bld) [Volume fraction] 35.2 % below low threshold See Below [facility] Work Phone: Comment on above: Reference Range: 36. 0 - 46.0 Hemoglobin (Bld) [Mass/Vol] 11.2 g/dL below low threshold See Below -[facility] Work Phone: Comment on above: Reference Range: 12. 0 - 16.0 MCHC (RBC) [Mass/Vol] 31.8 g/dL below low threshold See Below [facility] Work Phone: Comment on above: Reference Range: 32. 0 - 36.0 MCV (RBC) [Entitic vol] 98 fL 80 - 100 [facility] Work Phone: Platelets (Bld) [#/Vol] 288 10*3/uL 150 - 450 [facility] Work Phone: RBC (Bld) [#/Vol] 3.61 {x10E12/L} below low threshold See Below [facility] Work Phone: Comment on above: Reference Range: 4.0 0 - 5.20 WBC (Bld) [#/Vol] 8.1 10*3/uL 4.4 - 11.3 MP-[facility] Work Phone: No Panel Informationon 05-15 >90 >90 MP-[facility] Work Phone: Comment on above: CALCULATIONS OF ESTUARDO MATED GFR ARE PERFORMED USING THE 2020 CKD-EPI STUDY REFIT EQUATION WITHOUT THE RACE VARIABLE FOR THE IDMS-TRACEABLE CREATININE METHODS.https://jasn.asnjournals.org/content/early/ N.3642478331 0.0 {/100_WBC} 0.0-0.0 -[facility] Work Phone: Laboratory - Chemistry and C hemistry - challengeon 05-14-2023 Sodium (U) [Moles/Vol] mmol/L See Below -[facility] Work Phone: Comment on above: Reference Range: Not Established Sodium/Creatinine (U) [Ratio] SEE COMMENT See Below -[facility] Work Phone: Comment on above: Reference Range: Not EstablishedOne or more analytes used in this calculation is outside of the analytical measurement range.Calculation cannot be performed. Anion gap [Moles/Vol] 19 mmol/L 10 - 20 MP- [facility] Work Phone: Calcium [Mass/Vol] 10.3 mg/dL 8.6 - 10.6 MP-[facility] Work Phone: Chloride [Moles/Vol] 98 mmol/L 98 - 107 MP-P ain Management-[facility] Work Phone: CO2 [Moles/Vol] 24 mmol/L 21 - 32 MP-[facility] Work Phone: Creatinine [Mass/Vol] 0.76 mg/dL See Below - [facility] Work Phone: Comment on above: Reference Range: 0.5 0 - 1.05 Glucose [Mass/Vol] 168 mg/dL above high threshold 74 - 99 MP-[facility] Work Phone: Potassium [Moles/Vol] 4.3 mmol/L 3.5 - 5.3 MP- [facility] Work Phone: Sodium [Moles/Vol] 137 mmol/L 136 - 145 MP-[facility] Work Phone: Urea nitrogen [Mass/Vol] 14 mg/dL 6 - 23 MP-[facility] Work Phone: Laboratory - Coagulationon 0 05-14-2023 aPTT Coag (PPP) [Time] 27 s 27 - 38 -Pain Management-[facility] Work Phone: Comment on above: Note new reference r soheila as of 03/08/2023 at 10:00am. INR Coag (PPP) [Relative time] 1.1 {INR} 0.9 - 1.1 MP-Pain Management-[facility] Work Phone: PT Coag (PPP) [Time] 12.7 s 9.8 - 12.8 MP-P ain Management-[facility] Work Phone: Comment on above: Note new reference r soheila as of 03/08/2023 at 10:00am. Laboratory - Hematology and Cell countson 05-14-2023 Erythrocyte distribution width (RBC) [Ratio] 12.8 % See Below -[facility] Work Phone: Comment on above: Reference Range: 11. 5 - 14.5 Hematocrit (Bld) [Volume fraction] 35.9 % below low threshold See Below -[facility] Work Phone: Comment on above: Reference Range: 36. 0 - 46.0 Hemoglobin (Bld) [Mass/Vol] 11.9 g/dL below low threshold See Below MP-[facility] Work Phone: Comment on above: Reference Range: 12. 0 - 16.0 MCHC (RBC) [Mass/Vol] 33.1 g/dL See Below MP- [facility] Work Phone: Comment on above: Reference Range: 32. 0 - 36.0 MCV (RBC) [Entitic vol] 89 fL 80 - 100 MP-[facility] Work Phone: Platelets (Bld) [#/Vol] 419 10*3/uL 150 - 450 MP-[facility] Work Phone: RBC (Bld) [#/Vol] 4.03 {x10E12/L} See Below MP -[facility] Work Phone: Comment on above: Reference Range: 4.0 0 - 5.20 WBC (Bld) [#/Vol] 8.9 10*3/uL 4.4 - 11.3 MP-[facility] Work Phone: Erythrocyte distribution width (RBC) [Ratio] 12.6 % See Below -[facility] Work Phone: Comment on above: Reference Range: 11. 5 - 14.5 Hematocrit (Bld) [Volume fraction] 36.6 % See Below MP-[facility] Work Phone: Comment on above: Reference Range: 36. 0 - 46.0 Hemoglobin (Bld) [Mass/Vol] 11.6 g/dL below low threshold See Below MP-[facility] Work Phone: Comment on above: Reference Range: 12. 0 - 16.0 MCHC (RBC) [Mass/Vol] 31.7 g/dL below low threshold See Below MP-[facility] Work Phone: Comment on above: Reference Range: 32. 0 - 36.0 MCV (RBC) [Entitic vol] 95 fL 80 - 100 MP-[facility] Work Phone: Platelets (Bld) [#/Vol] 409 10*3/uL 150 - 450 MP-[facility] Work Phone: RBC (Bld) [#/Vol] 3.84 {x10E12/L} below low threshold See Below MP-[facility] Work Phone: Comment on above: Reference Range: 4.0 0 - 5.20 WBC (Bld) [#/Vol] 8.4 10*3/uL 4.4 - 11.3 MP-Colin n Management-[facility] Work Phone: No Panel Informationon 05-14 SEE COMMENT 38 - 318 MP-Pain Management-[facility] Work Phone: Comment on above: One or more analytes used in this calculation is outside of the analytical measurement range.Calculation cannot be performed. <15 See Below -Pain Management-[facility] Work Phone: Comment on above: Reference Range: Not Established >90 >90 -Pain Management-[facility] Work Phone: Comment on above: CALCULATIONS OF ESTUARDO MATED GFR ARE PERFORMED USING THE 2020 CKD-EPI STUDY REFIT EQUATION WITHOUT THE RACE VARIABLE FOR THE IDMS-TRACEABLE CREATININE METHODS.https://jasn.asnjournals.org/content/early/ N.0177893760 0.0 {/100_WBC} 0.0-0.0 MP-Pain Management-[facility] Work Phone: 0.0 {/100_WBC} 0.0-0.0 MP-Pain Management-[facility] Work Phone: Radiologyon 05-14-2023 US Kidney - bilateral Normal MP- Pain Management-[facility] [place] Work Phone: Renal Function Panelon 05-14 Albumin BCP dye [Mass/Vol] 4.0 g/dL 3.4 - 5.0 MP-[facility] Work Phone: Anion gap [Moles/Vol] 13 mmol/L 10 - 20 MP- [facility] Work Phone: Calcium [Mass/Vol] 10.0 mg/dL 8.6 - 10.6 MP-[facility] Work Phone: Chloride [Moles/Vol] 98 mmol/L 98 - 107 MP-P ain [facility] Work Phone: CO2 [Moles/Vol] 29 mmol/L 21 - 32 MP-[facility] Work Phone: Creatinine [Mass/Vol] 0.69 mg/dL See Below MP- [facility] Work Phone: Comment on above: Reference Range: 0.5 0 - 1.05 Glucose [Mass/Vol] 139 mg/dL above high threshold 74 - 99 MP-[facility] Work Phone: Phosphate [Mass/Vol] 4.5 mg/dL 2.5 - 4.9 MP-P ain [facility] Work Phone: Comment on above: The performance timi acteristics of phosphorus testing in heparinized plasma have been validated by the individual laboratory site where testing is performed. Testing on heparinized plasma is not approved by the FDA; however, such approval is not necessary. Potassium [Moles/Vol] 4.0 mmol/L 3.5 - 5.3 MP- [facility] Work Phone: Sodium [Moles/Vol] 136 mmol/L 136 - 145 MP-Colin n [facility] Work Phone: Urea nitrogen [Mass/Vol] 15 mg/dL 6 - 23 MP-[facility] Work Phone: Renal Function Panel >90 >90 MP-P ain Management-[facility] Work Phone: Comment on above: CALCULATIONS OF ESTUARDO MATED GFR ARE PERFORMED USING THE 2020 CKD-EPI STUDY REFIT EQUATION WITHOUT THE RACE VARIABLE FOR THE IDMS-TRACEABLE CREATININE METHODS.https://jasn.asnjournals.org/content/early/ N.5919171201 Total Protein, Urine Spoton 05-14-2023 Creatinine (U) [Mass/Vol] 90.4 mg/dL See Below -[facility] Work Phone: Comment on above: Reference Range: 20. 0 - 320.0 Protein (U) [Mass/Vol] 12 mg/dL 5 - 24 -Pain Management-[facility] Work Phone: Protein/Creatinine (U) [Ratio] 0.13 {mg/mg_Creat} See Below -[facility] Work Phone: Comment on above: Reference Range: 0.0 0 - 0.17 Urinalysison 05-14-2023 Color (U) YELLOW See Below -Pain Management-[facility] Work Phone: Comment on above: Reference Range: STR AW,YELLOW Glucose Ql (U) Negative NEGATIVE -Pain Management-[facility] Work Phone: Ketones Ql (U) Negative NEGATIVE -Pain Management-[facility] Work Phone: Leukocyte esterase Test strip Ql (U) SMALL (1+) Abnormal NEGATIVE -Pain Management-[facility] Work Phone: pH (U) 6.0 [pH] 5.0 - 8.0 MP-Pain Management-[facility] Work Phone: Protein (U) [Mass/Vol] Negative NEGATIVE MP-Pain Management-[facility] Work Phone: RBC (U) [#/Vol] Negative NEGATIVE -[facility] Work Phone: Specific gravity (U) [Rel density] 1.015 1 See Below MP-[facility] Work Phone: Comment on above: Reference Range: 1.0 05 - 1.035 Urinalysis Negative NEGATIVE MP-[facility] Work Phone: Urinalysis <2.0 0.0 - 1.9 MP-[facility] Work Phone: Urinalysis HAZY CLEAR -[facility] Work Phone: Urinalysis, Microscopicon Urinalysis, Microscopic 3+ Abnormal -[facility] Work Phone: Urinalysis, Microscopic 1+ Abnormal MP-[facility] Work Phone: Urinalysis, Microscopic 11 {/HPF} MP-[facility] Work Phone: Urinalysis, Microscopic 4 {/HPF} 0-5 MP-[facility] Work Phone: Urinalysis, Microscopic RARE MP-[facility] Work Phone: Urinalysis, Microscopic 41 {/HPF} Abnormal 0-5 -[facility] Work Phone: Complete Blood Count + Diffe rentialon 05-13-2023 Basophils/100 WBC (Bld) 0.7 % 0.0 - 2.0 MP-[facility] Work Phone: Erythrocyte distribution width (RBC) [Ratio] 12.6 % See Below -[facility] Work Phone: Comment on above: Reference Range: 11. 5 - 14.5 Hematocrit (Bld) [Volume fraction] 36.9 % See Below MP-[facility] Work Phone: Comment on above: Reference Range: 36. 0 - 46.0 Hemoglobin (Bld) [Mass/Vol] 12.4 g/dL See Below MP-[facility] Work Phone: Comment on above: Reference Range: 12. 0 - 16.0 Lymphocytes/100 WBC (Bld) 23.8 % See Below MP-[facility] Work Phone: Comment on above: Reference Range: 13. 0 - 44.0 MCHC (RBC) [Mass/Vol] 33.6 g/dL See Below MP- [facility] Work Phone: Comment on above: Reference Range: 32. 0 - 36.0 MCV (RBC) [Entitic vol] 89 fL 80 - 100 MP-[facility] Work Phone: Monocytes/100 WBC (Bld) 7.1 % 2.0 - 10.0 MP-[facility] Work Phone: Neutrophils/100 WBC (Bld) 63.7 % See Below MP-[facility] Work Phone: Comment on above: Reference Range: 40. 0 - 80.0 Platelets (Bld) [#/Vol] 354 10*3/uL 150 - 450 MP-[facility] Work Phone: RBC (Bld) [#/Vol] 4.15 {x10E12/L} See Below MP -[facility] Work Phone: Comment on above: Reference Range: 4.0 0 - 5.20 WBC (Bld) [#/Vol] 8.1 10*3/uL 4.4 - 11.3 MP-Colin n [facility] Work Phone: Complete Blood Count + Differential 0.06 {x10E9/L} See Below MP-[facility] Work Phone: Comment on above: Reference Range: 0.0 0 - 0.10 Complete Blood Count + Differential 0.33 {x10E9/L} See Below -Pain Management-[facility] Work Phone: Comment on above: Reference Range: 0.0 0 - 0.70 Complete Blood Count + Differential 0.57 {x10E9/L} See Below -Pain Management-[facility] Work Phone: Comment on above: Reference Range: 0.1 0 - 1.00 Complete Blood Count + Differential 1.92 {x10E9/L} See Below -Pain Management-[facility] Work Phone: Comment on above: Reference Range: 1.2 0 - 4.80 Complete Blood Count + Differential 5.15 {x10E9/L} See Below [facility] Work [facility]: Comment on above: Reference Range: 1.2 0 - 7.70 Complete Blood Count + Differential 4.1 % 0.0 - 6.0 -Pain Management-[facility] Work Phone: Complete Blood Count + Differential 0.6 % 0.0 - 0.9 -[facility] [employer] Phone: Comment on above: Immature Granulocyte Count (IG) includes promyelocytes, myelocytes and metamyelocytes but does not include bands. Percent differential counts (%) should be interpreted in the context of the absolute cell counts (cells/L). Complete Blood Count + Differential 0.0 {/100_WBC} 0.0-0.0 -Pain Management-[facility] Work Phone: Cult, Urineon 05-13-2023 Bacteria identified Cx Nom (U) Abnormal [facility] [employer] Phone: Initial Visit (Pain Medicine )on 05-13-2023 Initial Visit (Pain Medicine) No report was sent Normal [facility] - Chemistry and C hemistry - challengeon 05-13-2023 Albumin BCP dye [Mass/Vol] 3.9 g/dL 3.4 - 5.0 MP-[facility] Work Phone: ALP [Catalytic activity/Vol] 62 U/L 33 - 110 MP-[facility] Work Phone: ALT With P-5'-P [Catalytic activity/Vol] 43 U/L 7 - 45 MP-[facility] Work Phone: Comment on above: Patients treated wit h Sulfasalazine may generate falsely decreased results for ALT. Anion gap [Moles/Vol] 14 mmol/L 10 - 20 MP- [facility] Work Phone: AST With P-5'-P [Catalytic activity/Vol] 27 U/L 9 - 39 -[facility] Work Phone: Bilirubin [Mass/Vol] 0.3 mg/dL 0.0 - 1.2 MP-P ain [facility] Work Phone: Calcium [Mass/Vol] 9.7 mg/dL 8.6 - 10.6 MP-[facility]in [facility] Work Phone: Chloride [Moles/Vol] 98 mmol/L 98 - 107 MP-P ain [facility] Work Phone: CO2 [Moles/Vol] 30 mmol/L 21 - 32 MP-[facility] Work Phone: Creatinine [Mass/Vol] 0.75 mg/dL See Below - [facility] Work Phone: Comment on above: Reference Range: 0.5 0 - 1.05 Glucose [Mass/Vol] 103 mg/dL above high threshold 74 - 99 MP-[facility] Work Phone: Potassium [Moles/Vol] 3.5 mmol/L 3.5 - 5.3 MP- [facility] Work Phone: Protein [Mass/Vol] 6.4 g/dL 6.4 - 8.2 MP-[facility]in [facility] Work Phone: Sodium [Moles/Vol] 138 mmol/L 136 - 145 MP-Colin n [facility] Work Phone: Urea nitrogen [Mass/Vol] 17 mg/dL 6 - 23 MP-[facility] Work Phone: Albumin BCP dye [Mass/Vol] 3.8 g/dL 3.4 - 5.0 MP-[facility] Work Phone: ALP [Catalytic activity/Vol] 59 U/L 33 - 110 MP-[facility] Work Phone: ALT With P-5'-P [Catalytic activity/Vol] 42 U/L 7 - 45 MP-[facility] Work Phone: Comment on above: Patients treated wit h Sulfasalazine may generate falsely decreased results for ALT. Anion gap [Moles/Vol] 17 mmol/L 10 - 20 MP- [facility] Work Phone: AST With P-5'-P [Catalytic activity/Vol] 28 U/L 9 - 39 MP-[facility] Work Phone: Bilirubin [Mass/Vol] 0.3 mg/dL 0.0 - 1.2 MP-P ain [facility] Work Phone: Calcium [Mass/Vol] 9.7 mg/dL 8.6 - 10.6 MP-Colin n [facility] Work Phone: Chloride [Moles/Vol] 98 mmol/L 98 - 107 MP-P ain [facility] Work Phone: CO2 [Moles/Vol] 26 mmol/L 21 - 32 MP-[facility] Work Phone: Creatinine [Mass/Vol] 0.71 mg/dL See Below MP- [facility] Work Phone: Comment on above: Reference Range: 0.5 0 - 1.05 Glucose [Mass/Vol] 154 mg/dL above high threshold 74 - 99 MP-[facility] Work Phone: LDH [Catalytic activity/Vol] 201 U/L 84 - 246 MP-[facility] Work Phone: Potassium [Moles/Vol] 3.5 mmol/L 3.5 - 5.3 MP- [facility] Work Phone: Protein [Mass/Vol] 6.3 g/dL below low threshold 6.4 - 8.2 MP-[facility] Work Phone: Sodium [Moles/Vol] 137 mmol/L 136 - 145 MP-Colin n Management[facility] Work Phone: Urea nitrogen [Mass/Vol] 16 mg/dL 6 - 23 MP-[facility] Work Phone: Laboratory - Hematology and Cell countson 05-13-2023 Erythrocyte distribution width (RBC) [Ratio] 12.5 % See Below MP-[facility] Work Phone: Comment on above: Reference Range: 11. 5 - 14.5 Hematocrit (Bld) [Volume fraction] 38.6 % See Below MP-[facility] Work Phone: Comment on above: Reference Range: 36. 0 - 46.0 Hemoglobin (Bld) [Mass/Vol] 12.6 g/dL See Below MP-[facility] Work Phone: Comment on above: Reference Range: 12. 0 - 16.0 MCHC (RBC) [Mass/Vol] 32.6 g/dL See Below MP- [facility] Work Phone: Comment on above: Reference Range: 32. 0 - 36.0 MCV (RBC) [Entitic vol] 94 fL 80 - 100 MP-Pain Management-[facility] Work Phone: Platelets (Bld) [#/Vol] 440 10*3/uL 150 - 450 MP-Pain [facility] Work Phone: RBC (Bld) [#/Vol] 4.10 {x10E12/L} See Below MP -Pain Management-[facility] Work Phone: Comment on above: Reference Range: 4.0 0 - 5.20 WBC (Bld) [#/Vol] 10.7 10*3/uL 4.4 - 11.3 MP-Pa in [facility] Work Phone: Magnesium, Serumon 3 Magnesium [Mass/Vol] 2.40 mg/dL See Below MP-P ain [facility] Work Phone: Comment on above: Reference Range: 1.6 0 - 2.40 No Panel Informationon 05-13 >90 >90 -Pain [facility] Work Phone: Comment on above: CALCULATIONS OF ESTUARDO MATED GFR ARE PERFORMED USING THE 2020 CKD-EPI STUDY REFIT EQUATION WITHOUT THE RACE VARIABLE FOR THE IDMS-TRACEABLE CREATININE METHODS.https://jasn.asnjournals.org/content/early/ N.9113428074 0.0 {/100_WBC} 0.0-0.0 MP-Pain Management-[facility] Work Phone: >90 >90 MP-Pain [facility] Work Phone: Comment on above: CALCULATIONS OF ESTUARDO MATED GFR ARE PERFORMED USING THE 2020 CKD-EPI STUDY REFIT EQUATION WITHOUT THE RACE VARIABLE FOR THE IDMS-TRACEABLE CREATININE METHODS.https://jasn.asnjournals.org/content/early/ N.9348479913 [email or web address] :[email or web address] [email or web address]?RetrieveTestByDa teTrobert?[email or web address]=[id number]&Date=13-05-2023&Johnathan e=[id number]&Peggy tType=ECG&Site=1&Output Type=PDF&Ext=PDF MP-[facility] Work Phone: Normal sinus rhythm MP-Pa in Management-[facility] [place] Work Phone: Abnormal MP-[facility] [place] Work Phone: [phone] MP-[facility] Work Phone: [phone] MP-[facility] Work Phone: [phone] MP-[facility] Work Phone: 147 1 MP-[facility] Work Phone: 224 1 MP-[facility] Work Phone: 13 1 MP-[facility] Work Phone: 6 1 MP-[facility] Work Phone: -7 1 MP-[facility] Work Phone: 37 1 MP-Pain Management-[facility] [place] Work Phone: [phone] MP-Pain Management-[facility] [place] Work Phone: [phone] MP-Pain Management-[facility] [place] Work Phone: 90 1 MP-Pain Management-[facility] [place] Work Phone: [phone] MP-[facility] Work Phone: [phone] 1 MP-[facility] Work Phone: Phosphorus, Serumon 08-25-20 23 Phosphate [Mass/Vol] 4.0 mg/dL 2.5 - 4.9 MP-P ain [facility] Work Phone: Comment on above: The performance timi acteristics of phosphorus testing in heparinized plasma have been validated by the individual laboratory site where testing is performed. Testing on heparinized plasma is not approved by the FDA; however, such approval is not necessary. TROPONIN I, HIGH SENSITIVITY on 05-13-2023 Tropinin I.cardiac panel High sensitivity method <3 0 - 34 MP-Pain [facility] Work Phone: Comment on above: .Less than 99th perc entile of normal range cutoff-Female and children under 18 years old <35 ng/L; Male <54 ng/L: NegativeRepeat testing should be performed if clinically indicated. .Female and children under 18 years old 35-120 ng/L; Male 54-120 ng/L:Consistent with possible cardiac damage and possible increased clinical risk. Serial measurements may help to assess extent of myocardial damage. .>120 ng/L: Consistent with cardiac damage, increased clinical risk andmyocardial infarction. Serial measurements may help assess extent of myocardial damage. . NOTE: Children less than 1 year old may have higher baseline troponin levels and results should be interpreted in conjunction with the overall clinical context..NOTE: Troponin I testing is performed using a different testing methodology at [facility] than at other [facility]. Direct result comparisons should only be made within the same method. Tropinin I.cardiac panel High sensitivity method <3 0 - 34 MP-[facility] Work Phone: Comment on above: .Less than 99th perc entile of normal range cutoff-Female and children under 18 years old <35 ng/L; Male <54 ng/L: NegativeRepeat testing should be performed if clinically indicated. .Female and children under 18 years old 35-120 ng/L; Male 54-120 ng/L:Consistent with possible cardiac damage and possible increased clinical risk. Serial measurements may help to assess extent of myocardial damage. .>120 ng/L: Consistent with cardiac damage, increased clinical risk andmyocardial infarction. Serial measurements may help assess extent of myocardial damage. . NOTE: Children less than 1 year old may have higher baseline troponin levels and results should be interpreted in conjunction with the overall clinical context..NOTE: Troponin I testing is performed using a different testing methodology at [facility] than at other [facility]. Direct result comparisons should only be made within the same method. URINALYSIS WITH CULTURE IF I NDICATEDon 05-13-2023 Color (U) RED See Below [facility] Work Phone: Comment on above: Reference Range: STR AW,YELLOW Glucose Ql (U) Negative NEGATIVE [facility] Work Phone: Ketones Ql (U) Negative NEGATIVE [facility] Work Phone: Leukocyte esterase Test strip Ql (U) TRACE Abnormal NEGATIVE [facility] Work Phone: pH (U) 7.0 [pH] 5.0 - 8.0 [facility] Work Phone: Protein (U) [Mass/Vol] >=300 + Abnormal NEGATIVE [facility] Work Phone: RBC (U) [#/Vol] LARGE (3+) Abnormal NEGATIVE -[facility] Work Phone: Specific gravity (U) [Rel density] 1.020 1 See Below -[facility] Work Phone: Comment on above: Reference Range: 1.0 05 - 1.035 URINALYSIS WITH CULTURE IF INDICATED Negative NEGATIVE MP-[facility] Work Phone: URINALYSIS WITH CULTURE IF INDICATED <2.0 0.0 - 1.9 [facility] Work Phone: URINALYSIS WITH CULTURE IF INDICATED CLOUDY CLEAR MP-[facility] Work Phone: Urinalysis, Microscopicon Urinalysis, Microscopic 1+ Abnormal [facility] Work Phone: Urinalysis, Microscopic >100 Abnormal 0-5 -[facility] Work Phone: Urinalysis, Microscopic 0-5 0-5 MP-[facility] Work Phone: CT Abdomen and Pelvis with I V Contraston 05-12-2023 CT Abdomen and Pelvis W contrast IV Normal [facility] Work Phone: Complete Blood Count + Diffe rentialon 05-12-2023 Basophils/100 WBC (Bld) 0.8 % 0.0 - 2.0 [facility] Work Phone: Erythrocyte distribution width (RBC) [Ratio] 12.3 % See Below -[facility] Work Phone: Comment on above: Reference Range: 11. 5 - 14.5 Hematocrit (Bld) [Volume fraction] 42.7 % See Below -[facility] Work Phone: Comment on above: Reference Range: 36. 0 - 46.0 Hemoglobin (Bld) [Mass/Vol] 14.1 g/dL See Below -[facility] Work Phone: Comment on above: Reference Range: 12. 0 - 16.0 Lymphocytes/100 WBC (Bld) 26.2 % See Below MP-[facility] Work Phone: Comment on above: Reference Range: 13. 0 - 44.0 MCHC (RBC) [Mass/Vol] 33.0 g/dL See Below MP- [facility] Work Phone: Comment on above: Reference Range: 32. 0 - 36.0 MCV (RBC) [Entitic vol] 90 fL 80 - 100 MP-[facility] Work Phone: Monocytes/100 WBC (Bld) 7.8 % 2.0 - 10.0 [facility] Work Phone: Neutrophils/100 WBC (Bld) 61.7 % See Below [facility] Work Phone: Comment on above: Reference Range: 40. 0 - 80.0 Platelets (Bld) [#/Vol] 535 10*3/uL above high threshold 150 - 450 [facility] Work Phone: RBC (Bld) [#/Vol] 4.74 {x10E12/L} See Below MP -[facility] Work Phone: Comment on above: Reference Range: 4.0 0 - 5.20 WBC (Bld) [#/Vol] 7.3 10*3/uL 4.4 - 11.3 MP-[facility] Work Phone: Complete Blood Count + Differential 0.06 {x10E9/L} See Below [facility] Work Phone: Comment on above: Reference Range: 0.0 0 - 0.10 Complete Blood Count + Differential 0.22 {x10E9/L} See Below [facility] Work Phone: Comment on above: Reference Range: 0.0 0 - 0.70 Complete Blood Count + Differential 0.57 {x10E9/L} See Below [facility] Work Phone: Comment on above: Reference Range: 0.1 0 - 1.00 Complete Blood Count + Differential 1.92 {x10E9/L} See Below [facility] Work Phone: Comment on above: Reference Range: 1.2 0 - 4.80 Complete Blood Count + Differential 4.53 {x10E9/L} See Below [facility] Work Phone: Comment on above: Reference Range: 1.2 0 - 7.70 Complete Blood Count + Differential 3.0 % 0.0 - 6.0 [facility] Work Phone: Complete Blood Count + Differential 0.5 % 0.0 - 0.9 -[facility] Work Phone: Comment on above: Immature Granulocyte Count (IG) includes promyelocytes, myelocytes and metamyelocytes but does not include bands. Percent differential counts (%) should be interpreted in the context of the absolute cell counts (cells/L). Complete Blood Count + Differential 0.0 {/100_WBC} 0.0-0.0 [facility] Work Phone: HCG, Beta Quantitativeon HCG.beta subunit Qn 4 {IU/L} MP-Pa in [facility] Work Phone: Comment on above: .Total HCG measureme nt is performed using the Siemens Atellicaimmunoassay which detects intact HCG and free beta HCG subunit..This test is not indicated for use as a tumor marker.HCG testing is performed using a different test methodology at [facility] than other [facility]. Direct result comparisonshould only be made within the same method..REF VALUESNON FEMALE <5MALES <5 Laboratory - Chemistry and C hemistry - challengeon 05-12-2023 Albumin BCP dye [Mass/Vol] 4.9 g/dL 3.4 - 5.0 MP-[facility] Work Phone: ALP [Catalytic activity/Vol] 79 U/L 33 - 110 MP-[facility] Work Phone: ALT With P-5'-P [Catalytic activity/Vol] 60 U/L above high threshold 7 - 45 [facility] Work Phone: Comment on above: Patients treated wit h Sulfasalazine may generate falsely decreased results for ALT. Anion gap [Moles/Vol] 18 mmol/L 10 - 20 MP- [facility] Work Phone: AST With P-5'-P [Catalytic activity/Vol] 46 U/L above high threshold 9 - 39 [facility] Work Phone: Bilirubin [Mass/Vol] 0.3 mg/dL 0.0 - 1.2 MP-P ain [facility] Work Phone: Calcium [Mass/Vol] 10.0 mg/dL 8.6 - 10.6 MP-[facility] Work Phone: Chloride [Moles/Vol] 88 mmol/L below low threshold 98 - 107 [facility] Work Phone: CO2 [Moles/Vol] 32 mmol/L 21 - 32 [facility] Work Phone: Creatinine [Mass/Vol] 0.86 mg/dL See Below MP- [facility] Work Phone: Comment on above: Reference Range: 0.5 0 - 1.05 Glucose [Mass/Vol] 117 mg/dL above high threshold 74 - 99 [facility] Work Phone: Potassium [Moles/Vol] 3.0 mmol/L below low threshold 3.5 - 5.3 [facility] Work Phone: Protein [Mass/Vol] 8.6 g/dL above high threshold 6.4 - 8.2 [facility] Work Phone: Sodium [Moles/Vol] 135 mmol/L below low threshold 136 - 145 [facility] Work Phone: Urea nitrogen [Mass/Vol] 17 mg/dL 6 - 23 [facility] Work Phone: Laboratory - Drug toxicology on 05-12-2023 Amphetamines Screen Ql (U) Negative NEGATIVE [facility] Work Phone: Comment on above: CUTOFF LEVEL: 500 NG /ML Cross-reactivity has been reported with high concentrations of the following drugs: buproprion, chloroquine, chlorpromazine, ephedrine, mephentermine, fenfluramine, phentermine, phenylpropanolamine, pseudoephedrine, and propranolol. Barbiturates Screen Ql (U) Negative NEGATIVE [facility] Work Phone: Comment on above: CUTOFF LEVEL: 200 NG /ML Benzodiazepines Ql (U) Negative NEGATIVE [facility] Work Phone: Comment on above: CUTOFF LEVEL: 200 NG /ML Benzoylecgonine Screen Ql (U) Negative NEGATIVE [facility] Work Phone: Comment on above: CUTOFF LEVEL: 150 NG /ML Cannabinoids Screen Ql (U) Negative NEGATIVE [facility] Work Phone: Comment on above: CUTOFF LEVEL: 50 NG/ ML Opiates Screen Ql (U) Negative NEGATIVE MP- [facility] Work Phone: Comment on above: CUTOFF LEVEL: 300 NG /ML The opiate screen does not detect fentanyl, meperidine, or tramadol. Oxycodone is not consistently detected (refer to Oxycodone Screen, Urine result). oxyCODONE+oxyMORphone Screen Ql (U) Positive Abnormal NEGATIVE MP-[facility] Work Phone: Comment on above: CUTOFF LEVEL: 100 NG /ML This test will accurately detect both oxycodone and oxymorphone. Phencyclidine Ql (U) Negative NEGATIVE MP-P ain [facility] Work Phone: Comment on above: CUTOFF LEVEL: 25 NG/ ML Cross-reactivity has been reported with dextromethorphan. Lipase, Serumon 05-12-2023 Lipase [Catalytic activity/Vol] 161 U/L above high threshold 9 - 82 MP-[facility] Work Phone: Comment on above: Venipuncture immedia tely after or during the administration of Metamizole may lead to falsely low results. Testing should be performed immediately prior to Metamizole dosing. I-iemxhp-g-benzoquinone imine (metabolite of Acetaminophen) will generate erroneously low results in samples for patients that have taken toxic doses of acetaminophen. No Panel Informationon 05-12 SEE BELOW -[facility] Work Phone: Comment on above: Drug screen results are presumptive and should not be used to assess compliance with prescribed medication. Contact the performing [facility] laboratory to add-on definitive confirmatory testing if clinically indicated. .Toxicology screening results are reported qualitatively. The concentration must be greater than or equal to the cutoff to be reported as positive. The concentration at which the screening test can detect an individual drug or metabolite varies. The absence of expected drug(s) and/or drug metabolite(s) may indicate non-compliance, inappropriate timing of specimen collection relative to drug administration, poor drug absorption, diluted/adulterated urine, or limitations of testing. For medical purposes only; not valid for forensic use. .Interpretive questions should be directed to the laboratory medical directors. 83 {mL/min/1.73m2} >90 [facility] Work Phone: Comment on above: CALCULATIONS OF ESTUARDO MATED GFR ARE PERFORMED USING THE 2020 CKD-EPI STUDY REFIT EQUATION WITHOUT THE RACE VARIABLE FOR THE IDMS-TRACEABLE CREATININE METHODS.https://jasn.asnjournals.org/content/early/ N.0801191254 URINALYSIS WITH CULTURE IF I NDICATEDon 05-12-2023 Color (U) YELLOW See Below -[facility] Work Phone: Comment on above: Reference Range: STR AW,YELLOW Glucose Ql (U) Negative NEGATIVE [facility] Work Phone: Ketones Ql (U) Negative NEGATIVE -[facility] Work Phone: Leukocyte esterase Test strip Ql (U) Negative NEGATIVE [facility] Work Phone: pH (U) 7.0 [pH] 5.0 - 8.0 MP-[facility] Work Phone: Protein (U) [Mass/Vol] Negative NEGATIVE MP-[facility] Work Phone: RBC (U) [#/Vol] Negative NEGATIVE MP-[facility] Work Phone: Specific gravity (U) [Rel density] 1.011 1 See Below [facility] Work Phone: Comment on above: Reference Range: 1.0 05 - 1.035 URINALYSIS WITH CULTURE IF INDICATED Negative NEGATIVE [facility] Work Phone: Comment on above: CUTOFF LEVEL: 5 NG/M L URINALYSIS WITH CULTURE IF INDICATED <2.0 0.0 - 1.9 [facility] Work Phone: URINALYSIS WITH CULTURE IF INDICATED CLEAR CLEAR [facility] Work Phone: .Auto DiffOrdered By: SYSTEM SYSTEM on 05-09-2023 Basophil, Absolute 0.2 103/mcL Normal 0.0-0.2 AO Wo rkflow SS Comment on above: Performed By: #### U A, PREGU #### Sean [address] [place], [place] [address] Basophils/100 WBC (Bld) 1.5 % Normal 0.0-2.5 AO Workflow SS Comment on above: Performed By: #### U A, PREGU #### Sean [address] [place], [place] [address] Eosinophil, Absolute 0.3 103/mcL Normal 0.0-0.4 AO Workflow SS Comment on above: Performed By: #### U A, PREGU #### Sean [address] [place], [place] [address] Eosinophils/100 WBC (Bld) 2.8 % Normal 0.0-7.0 AO Workflow SS Comment on above: Performed By: #### U A, PREGU #### Sean [address] [place], [place] [address] Lymphocyte, Absolute 2.5 103/mcL Normal 0.8-3.9 AO Workflow SS Comment on above: Performed By: #### U A, PREGU #### Sean [address] [place], [place] [address] Lymphocytes/100 WBC (Bld) 20.8 % Normal 10.0-50.0 AO Workflow SS Comment on above: Performed By: #### U A, PREGU #### Sean [address] [place], [place] [address] Monocyte, Absolute 0.7 103/mcL Normal 0.2-1.0 AO Wo rkflow SS Comment on above: Performed By: #### U A, PREGU #### Sean [address] [place], [place] [address] Monocytes/100 WBC (Bld) 5.4 % Normal 1.7-13.0 AO Workflow SS Comment on above: Performed By: #### U A, PREGU #### Sean [address] [place], [place] [address] Neutrophils/100 WBC (Bld) 69.5 % Normal 37.0-80.0 AO Workflow SS Comment on above: Performed By: #### U A, PREGU #### Sean [address] [place], [place] [address] .GFRon 05-09-2023 GFR Non- 67 ml/min/1.73sqm Normal [facility] ([place]) Comment on above: Result Comment: GFR Population mean for , Non- Americans Ages 20-29 = 116 mL/min/1.73 sq.m. Ages 30-39 = 107 mL/min/1.73 sq.m. Ages 40-49 = 99 mL/min/1.73 sq.m. Ages 50-59 = 93 mL/min/1.73 sq.m. Ages 60-69 = 85 mL/min/1.73 sq.m. Ages 70+ = 75 mL/min/1.73 sq.m. Chronic Kidney Disease: Less than 60 mL/min/1.73 square meters End Stage Renal Disease: Less than 15 mL/min/1.73 square meters Performed By: #### U A, PREGU #### Sean [address] [place], [place] [address] GFR 81 ml/min/1.73sqm Normal [facility] ([place]) Comment on above: Result Comment: GFR Population mean for , Non- Americans Ages 20-29 = 116 mL/min/1.73 sq.m. Ages 30-39 = 107 mL/min/1.73 sq.m. Ages 40-49 = 99 mL/min/1.73 sq.m. Ages 50-59 = 93 mL/min/1.73 sq.m. Ages 60-69 = 85 mL/min/1.73 sq.m. Ages 70+ = 75 mL/min/1.73 sq.m. Chronic Kidney Disease: Less than 60 mL/min/1.73 square meters End Stage Renal Disease: Less than 15 mL/min/1.73 square meters Performed By: #### U A, PREGU #### Sean [address] [place], [place] [address] .MDWon 05-09-2023 Monocyte Distribution Width 19.94 Normal 0.00-20.00 [facility] ([place]) Comment on above: Result Comment: For ED adult patients suspected of sepsis, MDW<=20.0 does not rule out sepsis or risk of sepsis Performed By: #### U A PREGU #### Sean [address] [place], [place] [address] .NEUABSOrdered By: SYSTEM SY STEM on 05-09-2023 Neutrophil, Absolute 8.4 103/mcL High 2.9-6.2 AO Workflow SS Comment on above: Performed By: #### U A, PREGU #### Sean [address] [place], [place] [address] .Urinalysis Microscopic (AO) on 05-09-2023 UA RBC 0-5 Abnormal None Seen [facility] ([place]) Comment on above: Performed By: #### A DIFF, ANEU, CMP, MG, GFR, LD, CRP, CBC, ESR #### Sean [address] [place], [place] [address] UA Squam Epithelial 0-5 Abnormal None Seen [facility] ([place]) Comment on above: Performed By: #### A DIFF, ANEU, CMP, MG, GFR, LD, CRP, CBC, ESR #### Sean [address] [place], [place] [address] UA WBC None Seen Normal None Seen [facility] ([place]) Comment on above: Performed By: #### A DIFF, ANEU, CMP, MG, GFR, LD, CRP, CBC, ESR #### Sean [id number] [place], [place] [address] CBCOrdered By: SYSTEM SYSTEM on 05-09-2023 Erythrocyte distribution width (RBC) [Ratio] 13.7 % Normal 11.5-14.5 AO Workflow SS Comment on above: Performed By: #### U Abigail, PREGU #### Sean [address] [place], [place] [address] Hematocrit (Bld) [Volume fraction] 40.6 % Normal 37.0-47.0 AO Workflow SS Comment on above: Performed By: #### U Abigail, PREGU #### [facility] [address] [place], [place] [address] MCH (RBC) [Entitic mass] 30.0 pg Normal 27.0-31.2 AO Workflow SS Comment on above: Performed By: #### U Abigail, PREGU #### Sean [address] [place], [place] [address] MCHC 33.0 G/dL Normal 33.0-37.0 AO Workflow SS Comment on above: Performed By: #### U A, PREGU #### Sean [address] [place], [place] [address] MCV (RBC) [Entitic vol] 90.9 fL Normal 80.0-94.0 AO Workflow SS Comment on above: Performed By: #### U A, PREGU #### Sean [address] [place], [place] [address] Platelet mean volume (Bld) [Entitic vol] 6.2 fL Low 7.4-10.4 AO Workflow SS Comment on above: Performed By: #### U A, PREGU #### Sean [address] [place], [place] [address] CBCon 05-09-2023 Hgb 13.4 G/dL Normal 12.0-16.0 [facility] ([place]) Comment on above: Performed By: #### U A, PREGU #### Sean [address] [place], [place] [address] Platelet 487 10 3/mcL High 130-400 [facility] ([place]) Comment on above: Performed By: #### U A, PREGU #### Sean [address] [place], [place] [address] RBC 4.46 10 6/mcL Normal 4.20-5.40 [facility] ([place]) Comment on above: Performed By: #### U A, PREGU #### Sean [address] [place], [place] [address] WBC 12.1 10 3/mcL High 4.6-10.8 [facility] ([place]) Comment on above: Performed By: #### U A, PREGU #### Sean [address] [place], [place] [address] CMPon 05-09-2023 Albumin Level 4.3 G/dL Normal 3.5-5.0 [facility] ([place]) Comment on above: Performed By: #### U A, PREGU #### Sean [address] [place], [place] [address] ALT [Catalytic activity/Vol] 58 U/L Normal 14-59 [facility] ([place]) Comment on above: Performed By: #### U A, PREGU #### Sean [address] [place], [place] [address] AST [Catalytic activity/Vol] 30 U/L Normal 10-40 [facility] ([place]) Comment on above: Performed By: #### U A, PREGU #### Sean [address] [place], [place] [address] Bili Total 0.3 mg/dL Normal 0.2-1.0 [facility] ([place]) Comment on above: Result Comment: Use of this assay is not recommended for patients undergoing treatment with eltrombopag due to the potential for falsely elevated results. Performed By: #### U A, PREGU #### Sean Davisillon [address] [place], [place] [address] BUN/Creatinine Ratio 27 ratio Normal 7-27 [facility] ([place]) Comment on above: Performed By: #### U A, PREGU #### Sean Loaizan [address] [place], [place] [address] Total Protein 8.2 G/dL Normal 6.4-8.2 [facility] ([place]) Comment on above: Performed By: #### U Abigail, PREGU #### Sean Loaizan [address] [place], [place] [address] CMPOrdered By: SYSTEM SYSTEM on 05-09-2023 Albumin/Globulin [Mass ratio] 1.1 {ratio} Normal 1.1-2.5 AO ADM SS Comment on above: Performed By: #### U Abigail, PREGU #### Sean Loaizan [address] [place], [place] [address] ALP [Catalytic activity/Vol] 81 U/L Normal 40-135 AO ADM SS Comment on above: Performed By: #### U Abigail, PREGU #### Sean Loaizan [address] [place], [place] [address] Calcium [Mass/Vol] 9.6 mg/dL Normal 8.4-10.2 AO ADM SS Comment on above: Performed By: #### U A, PREGU #### Sean Hunters [address] [place], [place] [address] Chloride [Moles/Vol] 98 mmol/L Normal 98-107 AO A DM SS Comment on above: Performed By: #### U A, PREGU #### Sean Loaizan [address] [place], [place] [address] CO2 [Moles/Vol] 27 mmol/L Normal 22-29 AO ADM SS Comment on above: Performed By: #### U A, PREGU #### Sean Reynolds [address] [place], [place] [address] Creatinine [Mass/Vol] 0.90 mg/dL Normal 0.55-1.02 AO ADM SS Comment on above: Performed By: #### U A, PREGU #### Sean Reynolds [address] [place], [place] [address] Electrolyte Balance 11.0 mEq/L Normal 4.0-15.0 AO AD M SS Comment on above: Performed By: #### U A, PREGU #### Sean Reynolds [address] [place], [place] [address] Globulin 3.9 G/dL Normal AO ADM SS Comment on above: Performed By: #### U A, PREGU #### Sean Reynolds [address] [place], [place] [address] Glucose [Mass/Vol] 115 mg/dL High 70-105 AO ADM SS Comment on above: Performed By: #### U A, PREGU #### Sean Reynolds [address] [place], [place] [address] Potassium [Moles/Vol] 4.3 mmol/L Normal 3.5-5.1 AO ADM SS Comment on above: Performed By: #### U A, PREGU #### Sean Reynolds [address] [place], [place] [address] Sodium [Moles/Vol] 136 mmol/L Normal 136-145 AO ADM SS Comment on above: Performed By: #### U A, PREGU #### Sean Reynolds [address] [place], [place] [address] Urea nitrogen [Mass/Vol] 24 mg/dL High 7-18 AO ADM SS Comment on above: Performed By: #### U A, PREGU #### Sean Reynolds [address] [place], [place] [address] LABORATORYOrdered By: SYSTEM SYSTEM on 05-09-2023 Albumin BCP dye [Mass/Vol] 4.3 G/dL Invalid Interpretation Code 3.5 - 5.0 G/dL AO ADM SS ALT With P-5'-P [Catalytic activity/Vol] 58 U/L Invalid Interpretation Code 14 - 59 U/L AO ADM SS AST With P-5'-P [Catalytic activity/Vol] 30 U/L Invalid Interpretation Code 10 - 40 U/L AO ADM SS Bilirubin [Mass/Vol] 0.3 mg/dL Invalid Interpretation Code 0.2 - 1.0 mg/dL AO ADM SS Comment on above: Interpretive Data: U se of this assay is not recommended for patients undergoing treatment with eltrombopag due to the potential for falsely elevated results. GFR/1.73 sq M.predicted among blacks MDRD (S/P/Bld) [Vol rate/Area] 81 ml/min/1.73sqm Invalid Interpretation Code AO Chemistry S Comment on above: Interpretive Data: GFR Population mean for , Non- Americans Ages 20-29 = 116 mL/min/1.73 sq.m. Ages 30-39 = 107 mL/min/1.73 sq.m. Ages 40-49 = 99 mL/min/1.73 sq.m. Ages 50-59 = 93 mL/min/1.73 sq.m. Ages 60-69 = 85 mL/min/1.73 sq.m. Ages 70+ = 75 mL/min/1.73 sq.m. Chronic Kidney Disease: Less than 60 mL/min/1.73 square meters End Stage Renal Disease: Less than 15 mL/min/1.73 square meters GFR/1.73 sq M.predicted among non-blacks MDRD (S/P/Bld) [Vol rate/Area] 67 ml/min/1.73sqm Invalid Interpretation Code AO Chemistry S Comment on above: Interpretive Data: GFR Population mean for , Non- Americans Ages 20-29 = 116 mL/min/1.73 sq.m. Ages 30-39 = 107 mL/min/1.73 sq.m. Ages 40-49 = 99 mL/min/1.73 sq.m. Ages 50-59 = 93 mL/min/1.73 sq.m. Ages 60-69 = 85 mL/min/1.73 sq.m. Ages 70+ = 75 mL/min/1.73 sq.m. Chronic Kidney Disease: Less than 60 mL/min/1.73 square meters End Stage Renal Disease: Less than 15 mL/min/1.73 square meters Hemoglobin (Bld) [Mass/Vol] 13.4 G/dL Invalid Interpretation Code 12.0 - 16.0 G/dL AO Workflow SS Lipase [Catalytic activity/Vol] 49 U/L Invalid Interpretation Code 16 - 77 U/L AO ADM SS Monocyte distribution width Auto (Bld) [Entitic vol] 19.94 1 Invalid Interpretation Code 0.00 - 20.00 AO Workflow SS Comment on above: Result Comment: For ED adult patients suspected of sepsis, MDW<=20.0 does not rule out sepsis or risk of sepsis Platelets (Bld) [#/Vol] 487 103/mcL Invalid Interpretation Code 130 - 400 10^3/mcL AO Workflow SS Protein [Mass/Vol] 8.2 G/dL Invalid Interpretation Code 6.4 - 8.2 G/dL AO ADM SS RBC (Bld) [#/Vol] 4.46 106/mcL Invalid Interpretation Code 4.20 - 5.40 10^6/mcL AO Workflow SS Urea nitrogen/Creatinine [Mass ratio] 27 ratio Invalid Interpretation Code 7 - 27 ratio AO ADM SS WBC (Bld) [#/Vol] 12.1 103/mcL Invalid Interpretation Code 4.6 - 10.8 10^3/mcL AO Workflow SS LABORATORYOrdered By: Elaine Skinner on 05-09-2023 Appearance (U) Cloudy *ABN* (05/09/23 9:00 AM) Invalid Interpretation Code Clear AO Auto Urine SS Bilirubin Ql (U) Negative (05/09/23 9:00 AM) Invalid Interpretation Code Negative AO Auto Urine SS Color (U) Yellow (05/09/23 9:00 AM) Invalid Interpretation Code AO Auto Urine SS Glucose Test strip (U) [Mass/Vol] Negative Invalid Interpretation Code Negative AO Auto Urine SS Hemoglobin Auto test strip (U) [Mass/Vol] Negative (05/09/23 9:00 AM) Invalid Interpretation Code Negative AO Auto Urine SS UA Leuk Est Negative (05/09/23 9:00 AM) Invalid Interpretation Code Negative AO Auto Urine SS UA Nitrite Negative (05/09/23 9:00 AM) Invalid Interpretation Code Negative AO Auto Urine SS UA pH 7.5 (05/09/23 9:00 AM) Invalid Interpretation Code 5.0 - 8.0 AO Auto Urine SS UA RBC 0-5 /HPF Invalid Interpretation Code None Seen AO Auto Urine SS UA Spec Grav 1.020 (05/09/23 9:00 AM) Invalid Interpretation Code 1.015-1.025 AO Auto Urine SS UA Specimen Type Clean Catch (05/09/23 9:00 AM) Invalid Interpretation Code AO Auto Urine SS UA Squam Epithelial 0-5 /HPF Invalid Interpretation Code None Seen AO Auto Urine SS UA Urobilinogen 0.2 E.U./dL Invalid Interpretation Code 0.2-1.0 AO Auto Urine SS WBC LM.HPF (Urine sed) [#/Area] None Seen /HPF Invalid Interpretation Code None Seen AO Auto Urine SS LIPon 05-09-2023 Lipase Level 49 U/L Normal 16-77 [facility] ([place]) Comment on above: Performed By: #### U A, PREGU #### [facility] [address] [place], [place] [address] UAon 05-09-2023 Color (U) Yellow Normal [facility] ([place]) Comment on above: Performed By: #### A DIFF, ANEU, CMP, MG, GFR, LD, CRP, CBC, ESR #### [address] [address] Glucose (U) [Mass/Vol] Negative Normal Negative [facility] ([place]) Comment on above: Performed By: #### A DIFF, ANEU, CMP, MG, GFR, LD, CRP, CBC, ESR #### [address] [address] UA Appear Cloudy Abnormal Clear [facility] ([place]) Comment on above: Performed By: #### A DIFF, ANEU, CMP, MG, GFR, LD, CRP, CBC, ESR #### [address] [address] UA Blood Negative Normal Negative [facility] ([place]) Comment on above: Performed By: #### A DIFF, ANEU, CMP, MG, GFR, LD, CRP, CBC, ESR #### [address] [address] UA Leuk Est Negative Normal Negative [facility] ([place]) Comment on above: Performed By: #### A DIFF, ANEU, CMP, MG, GFR, LD, CRP, CBC, ESR #### [address] [address] UA Nitrite Negative Normal Negative [facility]) Comment on above: Performed By: #### A DIFF, ANEU, CMP, MG, GFR, LD, CRP, CBC, ESR #### [place] [address] UA pH 7.5 Normal 5.0 - 8.0 [facility]) Comment on above: Performed By: #### A DIFF, ANEU, CMP, MG, GFR, LD, CRP, CBC, ESR #### [place] [address] UA Spec Grav 1.020 Normal 1.015-1.025 [facility]) Comment on above: Performed By: #### A DIFF, ANEU, CMP, MG, GFR, LD, CRP, CBC, ESR #### [place] [address] UA Specimen Type Clean Catch Normal [facility] ([place]) Comment on above: Performed By: #### A DIFF, ANEU, CMP, MG, GFR, LD, CRP, CBC, ESR #### [place] [address] UA Urobilinogen 0.2 E.U./dL Normal 0.2-1.0 [facility]) Comment on above: Performed By: #### A DIFF, ANEU, CMP, MG, GFR, LD, CRP, CBC, ESR #### [place] [address] Urobilinogen (U) [Mass/Vol] Negative Normal Negative [facility] ([place]) Comment on above: Performed By: #### A DIFF, ANEU, CMP, MG, GFR, LD, CRP, CBC, ESR #### [place] [address] UAOrdered By: Elaine covington 05-09-2023 Ketones Ql (U) Negative Normal Negative AO Auto Ur ine SS Comment on above: Performed By: #### A DIFF, ANEU, CMP, MG, GFR, LD, CRP, CBC, ESR #### [place] [id number] UA Protein Negative Normal Negative AO Auto Urine SS Comment on above: Performed By: #### A DIFF, ANEU, CMP, MG, GFR, LD, CRP, CBC, ESR #### [facility] [address] [place], [place] [address] Initial Visit (Pain Medicine )on 05-04-2023 Initial Visit (Pain Medicine) No report was sent Normal [facility] ED Nursing Noteon 04-30-2023 ED Nursing Note Called [facility] t o give Nurse to nurse report but was informed that the nurse already received report. Chart and records sent with driver wheelchair Caron Saucedo RN 04/30/23 0203 [facility] ED Nursing Note Pt arrived through [facility] ED with [facility]. This RN spoke with Gael VILLANUEVA coordinator at [facility] ED. Pt was en route to [facility] in [place] for psych admit. 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 [facility] dispatch advised to come to nearest ED. Pt arrived to triage in wheelchair with EMS, mumbling words, not making sense. Pt did verify name, , address once registered. This RN got report from Gael at [facility]- Pt had arrived today at [facility] for anxiety and depression, was pink slipped. Pt has had previous admissions for psychosis in past. Drug screen per RN in ED today was positive for opiates, PCP, marijuana. Pt has allergies to Penicillin, Neurontin, sulfa. [facility] was notifed of pt being brought to [facility] ED. [place] Stated pt had left ED calm and cooperative. This RN called [facility] facility and spoke with Dianne VILLANUEVA. Bed is held for pt once cleared by [facility] ED. Will fax paperwork needed to [facility] prior to transport. Jennifer Hancock RN 04/29/23 2322 Jennifer Hancock RN 04/29/23 2333 Jennifer Hancock RN 04/29/23 2342 Jennifer Hancock RN 04/29/23 2348 [facility] ED Nursing Note Room cleared and mad e safe per protocol, protective services in ED for safety of patient and staff. Patient in gown already from transport. Belongings already bagged and brought in by air transport professionals, checked by [facility] protective services Caron Saucedo RN 04/29/23 8253 Normal [facility] ED Provider Noteon ED Provider Note EMERGENCY DEPARTMENT ENCOUNTER Pt Name: Dorothea Rutledge Birthdate 1975 Date of evaluation: 04/29/2023 ED Provider: Lisbeth Davies DO CHIEF COMPLAINT Chief Complaint Patient presents with Psychiatric Evaluation Being transported from [facility] to [facility] for behavioral, anxiety and depression. En route patient became aggressive and confused so the lumber stacker driver came here for emergency assistance. Word salad upon admission to this ED, unable to communicate clearly or answers questions. Denies etoh or drug use at this time. Random words being continuously spoken. HISTORY OF PRESENT ILLNESS (Location/Symptom, Timing/Onset, Context/Setting, Quality, Duration, Modifying Factors, Severity) Note limiting factors. I wore appropriate PPE for the entirety of this encounter. HPI Dorothea Rutledge is a 47 y.o. female who presents to the emergency department with chief complaint of agitation. Patient was initially at [facility], seen for similar agitation and acting bizarrely. Patient was medically cleared and plan to admit to [facility] in [place]. In route from [facility] patient was initially calm and cooperative however became agitated and was reaching through the screen in the ambulance and acting erratically. Diverted to our facility for evaluation. Per EMS there were no falls, head injury or trauma. Patient did not have access to her clothing or any medications in route. On my evaluation patient will state her name, will not give any history regarding presentation. Patient is just saying random words and not answering my questions directly. Patient has pressured speech and intermittently has psychomotor agitation. Nursing Notes were reviewed. Limitations to history: Behavior Outside historians: EMS REVIEW OF SYSTEMS Review of Systems PAST MEDICAL HISTORY Past Medical History: Diagnosis Date Abscess Cerebral artery occlusion with cerebral infarction (CMS/HCC) (HCC) Clotting disorder (CMS/HCC) (HCC) DVT (deep vein thrombosis) in Gall stone GI bleed Hyperlipidemia Migraine Pancreatitis SURGICAL HISTORY Past Surgical History: Procedure Laterality Date SECTION (HISTORICAL) CHOLECYSTECTOMY COLONOSCOPY 04/12/2016 HYSTERECTOMY IVC FILTER RETRIEVAL CURRENT MEDICATIONS Previous Medications No medications on file ALLERGIES Patient has no allergy information on record. FAMILY HISTORY Family History Problem Relation Name Age of Onset Hyperlipidemia Mother High Blood Pressure Mother SOCIAL HISTORY Social History Socioeconomic History Marital status: Tobacco Use Smoking status: Every Day Packs/day: 1.00 Types: Cigarettes Smokeless tobacco: Never Substance and Sexual Activity Alcohol use: No Drug use: No SCREENINGS PHYSICAL EXAM ED Triage Vitals [04/29/232344] Temp Heart Rate Resp BP (!) 35.1 ?C (95.2 ?F) 110 -- (!) 122/92 SpO2 Temp Source Heart Rate Source Patient Position 97 % Temporal Monitor -- BP Location FiO2 (%) -- -- GENERAL APPEARANCE: Awake and alert. Intermittent psychomotor agitation. HEAD: Normocephalic. Atraumatic. EYES: EOM's grossly intact. Sclera anicteric. ENT: Mucous membranes are moist. Tolerates saliva. No trismus. NECK: Supple. No meningismus. Trachea midline. HEART: RRR. Radial pulses 2+. LUNGS: Respirations unlabored. CTAB ABDOMEN: Soft. Non-tender. No guarding, rigidity or rebound. No distention. Barrett's negative. No McBurney's point tenderness. EXTREMITIES: No acute deformities. SKIN: Warm and dry. NEUROLOGICAL: No gross facial drooping. Moves all 4 extremities spontaneously. PSYCHIATRIC: Alternating flat affect and pressured speech with psychomotor agitation. Refuses to answer questions. Pressured speech, continuously stating different words. DIAGNOSTIC RESULTS RADIOLOGY (Per Emergency Physician): Interpretation per the Radiologist below, if available at the time of this note: No orders to display ED BEDSIDE ULTRASOUND: Performed by ED Physician - none LABS: Labs Reviewed - No data to display All other labs were within normal range or not returned as of this dictation. EMERGENCY DEPARTMENT COURSE and DIFFERENTIAL DIAGNOSIS/MDM: Vitals: Vitals: 04/29/23234404/30/2331 BP: (!) 122/92 Pulse: 110 Resp: 15 Temp: (!) 35.1 ?C (95.2 ?F) TempSrc: Temporal SpO2: 97% Diagnoses as of 04/30/2334 Psychosis, unspecified psychosis type (HCC) Agitation Medications haloperidol lactate (Haldol) injection 5 mg (5 mg IntraMUSCular Given 04/29/232345) LORazepam (Ativan) injection 2 mg (2 mg IntraMUSCular Given 04/29/232346) droperidol (Inapsine) injection 5 mg (5 mg IntraMUSCular Given 04/30/23 0032) MDM: Difficult to obtain initial vital signs due to patient's agitation and unwillingness to remain still. Work-up from [facility] was reviewed, minimal leukocytosis of 11.2, no evidence of a (more content not included)... Normal [facility] .Auto Diffon 04-29-2023 Basophil, Absolute 0.1 10 3/mcL Normal 0.0-0.2 [facility] ([place]) Comment on above: Performed By: #### A DIFF, ANEU, CMP, MG, GFR, LD, CRP, CBC, ESR #### [address] [address] Basophils/100 WBC (Bld) 0.8 % Normal 0.0-2.5 [facility] ([place]) Comment on above: Performed By: #### A DIFF, ANEU, CMP, MG, GFR, LD, CRP, CBC, ESR #### [address] [address] Eosinophil, Absolute 0.1 10 3/mcL Normal 0.0-0.4 [facility] ([place]) Comment on above: Performed By: #### A DIFF, ANEU, CMP, MG, GFR, LD, CRP, CBC, ESR #### [address] [address] Eosinophils/100 WBC (Bld) 1.0 % Normal 0.0-7.0 [facility] ([place]) Comment on above: Performed By: #### A DIFF, ANEU, CMP, MG, GFR, LD, CRP, CBC, ESR #### [address] [address] Lymphocyte, Absolute 1.5 10 3/mcL Normal 0.8-3.9 [facility] ([place]) Comment on above: Performed By: #### A DIFF, ANEU, CMP, MG, GFR, LD, CRP, CBC, ESR #### [address] [address] Lymphocytes/100 WBC (Bld) 13.5 % Normal 10.0-50.0 [facility] ([place]) Comment on above: Performed By: #### A DIFF, ANEU, CMP, MG, GFR, LD, CRP, CBC, ESR #### [address] [address] Monocyte, Absolute 0.5 10 3/mcL Normal 0.2-1.0 [facility] ([place]) Comment on above: Performed By: #### A DIFF, ANEU, CMP, MG, GFR, LD, CRP, CBC, ESR #### [address] [address] Monocytes/100 WBC (Bld) 4.5 % Normal 1.7-13.0 [facility] ([place]) Comment on above: Performed By: #### A DIFF, ANEU, CMP, MG, GFR, LD, CRP, CBC, ESR #### [address] [address] Neutrophils/100 WBC (Bld) 80.2 % High 37.0-80.0 [facility] ([place]) Comment on above: Performed By: #### A DIFF, ANEU, CMP, MG, GFR, LD, CRP, CBC, ESR #### [address] [address] .GFRon 04-29-2023 GFR 102 ml/min/1.73sqm Normal [facility] ([place]) Comment on above: Result Comment: GFR Population mean for , Non- Americans Ages 20-29 = 116 mL/min/1.73 sq.m. Ages 30-39 = 107 mL/min/1.73 sq.m. Ages 40-49 = 99 mL/min/1.73 sq.m. Ages 50-59 = 93 mL/min/1.73 sq.m. Ages 60-69 = 85 mL/min/1.73 sq.m. Ages 70+ = 75 mL/min/1.73 sq.m. Chronic Kidney Disease: Less than 60 mL/min/1.73 square meters End Stage Renal Disease: Less than 15 mL/min/1.73 square meters Performed By: #### U A, PREGU #### [facility] [address] [place], [place] [address] GFR Non- 84 ml/min/1.73sqm Normal [facility] ([place]) Comment on above: Result Comment: GFR Population mean for , Non- Americans Ages 20-29 = 116 mL/min/1.73 sq.m. Ages 30-39 = 107 mL/min/1.73 sq.m. Ages 40-49 = 99 mL/min/1.73 sq.m. Ages 50-59 = 93 mL/min/1.73 sq.m. Ages 60-69 = 85 mL/min/1.73 sq.m. Ages 70+ = 75 mL/min/1.73 sq.m. Chronic Kidney Disease: Less than 60 mL/min/1.73 square meters End Stage Renal Disease: Less than 15 mL/min/1.73 square meters Performed By: #### U A, PREGU #### [facility] [address] [place] [address] .MDWon 04-29-2023 Monocyte Distribution Width Not performed Normal 0.00-20.00 [facility] ([place]) Comment on above: Result Comment: MDW testing performed only on adult ER patients between the ages of 18-89 years. Performed By: #### A DIFF, ANEU, CMP, MG, GFR, LD, CRP, CBC, ESR #### [address] [address] .NEUABSon 04-29-2023 Neutrophil, Absolute 9.0 10 3/mcL High 2.9-6.2 [facility] ([place]) Comment on above: Performed By: #### A DIFF, ANEU, CMP, MG, GFR, LD, CRP, CBC, ESR #### [address] [address] .Urinalysis Microscopic (AO) on 04-29-2023 UA Bacteria Trace Abnormal [facility] ([place]) Comment on above: Performed By: #### A DIFF, ANEU, CMP, MG, GFR, LD, CRP, CBC, ESR #### [address] [address] UA Fatty Casts 0-5 Abnormal [facility] ([place]) Comment on above: Performed By: #### A DIFF, ANEU, CMP, MG, GFR, LD, CRP, CBC, ESR #### [address] [address] UA Mucous 1+ /hpf Normal [facility] ([place]) Comment on above: Performed By: #### A DIFF, ANEU, CMP, MG, GFR, LD, CRP, CBC, ESR #### [place] [address] UA RBC 0-5 Abnormal None Seen [facility] ([place]) Comment on above: Performed By: #### A DIFF, ANEU, CMP, MG, GFR, LD, CRP, CBC, ESR #### [place] [address] UA Squam Epithelial 0-5 Abnormal None Seen [facility] ([place]) Comment on above: Performed By: #### A DIFF, ANEU, CMP, MG, GFR, LD, CRP, CBC, ESR #### [place] [address] UA WBC 0-5 Abnormal None Seen [facility] ([place]) Comment on above: Performed By: #### A DIFF, ANEU, CMP, MG, GFR, LD, CRP, CBC, ESR #### [place] [address] ACETAon 04-29-2023 Acetaminophen [Mass/Vol] 0.0 ug/mL Low 10.0-30.0 [facility] ([place]) Comment on above: Performed By: #### A DIFF, ANEU, CMP, MG, GFR, LD, CRP, CBC, ESR #### [address] [address] Yony 04-29-2023 Ethanol Level <3 Normal 0-3 [facility] ([place]) Comment on above: Performed By: #### A DIFF, ANEU, CMP, MG, GFR, LD, CRP, CBC, ESR #### [place] [id number] CBCon 04-29-2023 Erythrocyte distribution width (RBC) [Ratio] 13.3 % Normal 11.5-14.5 [facility] ([place]) Comment on above: Performed By: #### A DIFF, ANEU, CMP, MG, GFR, LD, CRP, CBC, ESR #### [address] [address] Hematocrit (Bld) [Volume fraction] 40.6 % Normal 37.0-47.0 [facility] ([place]) Comment on above: Performed By: #### A DIFF, ANEU, CMP, MG, GFR, LD, CRP, CBC, ESR #### [address] [address] Hgb 13.6 G/dL Normal 12.0-16.0 [facility] ([place]) Comment on above: Performed By: #### A DIFF, ANEU, CMP, MG, GFR, LD, CRP, CBC, ESR #### [place] [address] MCH (RBC) [Entitic mass] 30.3 pg Normal 27.0-31.2 [facility] ([place] Comment on above: Performed By: #### A DIFF, ANEU, CMP, MG, GFR, LD, CRP, CBC, ESR #### [place] [address] MCHC 33.6 G/dL Normal 33.0-37.0 [facility] ([place] Comment on above: Performed By: #### A DIFF, ANEU, CMP, MG, GFR, LD, CRP, CBC, ESR #### [place] [address] MCV (RBC) [Entitic vol] 90.4 fL Normal 80.0-94.0 [facility] ([place] Comment on above: Performed By: #### A DIFF, ANEU, CMP, MG, GFR, LD, CRP, CBC, ESR #### [place] [id number] Platelet 487 10 3/mcL High 130-400 [facility] ([place]) Comment on above: Performed By: #### A DIFF, ANEU, CMP, MG, GFR, LD, CRP, CBC, ESR #### [address] [address] Platelet mean volume (Bld) [Entitic vol] 6.8 fL Low 7.4-10.4 [facility] ([place]) Comment on above: Performed By: #### A DIFF, ANEU, CMP, MG, GFR, LD, CRP, CBC, ESR #### [address] [address] RBC 4.50 10 6/mcL Normal 4.20-5.40 [facility] ([place]) Comment on above: Performed By: #### A DIFF, ANEU, CMP, MG, GFR, LD, CRP, CBC, ESR #### [address] [address] WBC 11.2 10 3/mcL High 4.6-10.8 [facility] ([place]) Comment on above: Performed By: #### A DIFF, ANEU, CMP, MG, GFR, LD, CRP, CBC, ESR #### [address] [address] CKon 04-29-2023 CK [Catalytic activity/Vol] 74 U/L Normal 26-192 [facility] ([place]) Comment on above: Performed By: #### C K #### [address] [address] CMPon 04-29-2023 Albumin Level 4.4 G/dL Normal 3.5-5.0 [facility] ([place]) Comment on above: Performed By: #### U A, PREGU #### [facility] [address] [place], [place] [address] Albumin/Globulin [Mass ratio] 1.2 {ratio} Normal 1.1-2.5 [facility] ([place]) Comment on above: Performed By: #### U A, PREGU #### [facility] [facility] [address] [place], [place] [address] ALP [Catalytic activity/Vol] 109 U/L Normal 40-135 [facility] ([place]) Comment on above: Performed By: #### U A, PREGU #### [facility] [address] [place], [place] [address] ALT [Catalytic activity/Vol] 112 U/L High 14-59 [facility] ([place]) Comment on above: Performed By: #### U A, PREGU #### [facility] [address] [place], [place] [address] AST [Catalytic activity/Vol] 56 U/L High 10-40 [facility] ([place]) Comment on above: Performed By: #### U A, PREGU #### [facility] [address] [place], [place] [address] Bili Total 0.5 mg/dL Normal 0.2-1.0 [facility] ([place]) Comment on above: Result Comment: Use of this assay is not recommended for patients undergoing treatment with eltrombopag due to the potential for falsely elevated results. Performed By: #### U A, PREGU #### [facility] [address] [place], [place] [address] BUN/Creatinine Ratio 12 ratio Normal 7-27 [facility] ([place]) Comment on above: Performed By: #### U A, PREGU #### [facility] [address] [place], [place] [address] Calcium [Mass/Vol] 9.3 mg/dL Normal 8.4-10.2 [facility] ([place]) Comment on above: Performed By: #### U A, PREGU #### [facility] [address] [place], [place] [address] Chloride [Moles/Vol] 99 mmol/L Normal 98-107 [facility] ([place]) Comment on above: Performed By: #### U A, PREGU #### [facility] [address] [place], [place] [address] CO2 [Moles/Vol] 26 mmol/L Normal 22-29 [facility] ([place]) Comment on above: Performed By: #### U A, PREGU #### [facility] [address] [place], [place] [address] Creatinine [Mass/Vol] 0.74 mg/dL Normal 0.55-1.02 [facility] ([place]) Comment on above: Performed By: #### U A, PREGU #### [facility] [address] [place], [place] [address] Electrolyte Balance 14.0 mEq/L Normal 4.0-15.0 [facility] ([place]) Comment on above: Performed By: #### U A, PREGU #### [facility] [address] [place], [place] [address] Globulin 3.8 G/dL Normal [facility] ([place]) Comment on above: Performed By: #### U A, PREGU #### [facility] [address] [place], [place] [address] Glucose [Mass/Vol] 135 mg/dL High 70-105 [facility] ([place]) Comment on above: Performed By: #### U A, PREGU #### [facility] [address] [place], [place] [address] Potassium [Moles/Vol] 3.2 mmol/L Low 3.5-5.1 [facility] ([place]) Comment on above: Performed By: #### U A, PREGU #### [facility] [address] [place], [place] [address] Sodium [Moles/Vol] 139 mmol/L Normal 136-145 [facility] ([place]) Comment on above: Performed By: #### U A, PREGU #### [facility] [address] [place], [place] [address] Total Protein 8.2 G/dL Normal 6.4-8.2 [facility] ([place]) Comment on above: Performed By: #### U A, PREGU #### [facility] [address] [place], [place] [address] Urea nitrogen [Mass/Vol] 9 mg/dL Normal 7-18 [facility] ([place]) Comment on above: Performed By: #### U A, PREGU #### [facility] [address] [place], [place] [address] [id number] 04-29-2023 SARS-CoV-2 (COVID-19) RNA SANNA+probe Ql (Unsp spec) Negative Normal Negative [facility] ([place]) Comment on above: Performed By: #### U A, PREGU #### [facility] [address] [place], [place] [address] SARS-CoV-2 (COVID-19) RNA SANNA+probe Ql (Unsp spec) Normal [facility] ([place]) Comment on above: Result Comment: Nega tive results do not preclude SARS-CoV-2 infection and should not be used as the sole basis for patient management decisions. Negative results must be combined with clinical observations, patient history, and epidemiological information. There is a risk of false negative values resulting from improperly collected, transported, or handled specimens. There is a risk of false negative values due to the presence of sequence variants in the pathogen targets of the assay, procedural errors, amplification inhibitors in specimens, or inadequate numbers of organisms for amplification. DEREK SARS-CoV-2 Assay is a Real-Time reverse-transcriptase polymerase chain reaction (RT-PCR) based qualitative in vitro diagnostic test intended for the qualitative detection of nucleic acid from the SARS-CoV-2 in nasopharyngeal swab specimens collected from individuals suspected of COVID-19 by their healthcare provider. Testing is limited to laboratories certified under the Clinical Laboratory Improvement Amendments of 1988 (CLIA), 42 U.S.C. ?263a, to perform moderate and high complexity tests. COVID-19 Int Performed By: #### U A, PREGU #### [facility] [address] [place], [place] [address] LABORATORYOrdered By: Bessy Bhatti on 04-29-2023 Amphetamines Screen Ql (U) Negative (04/29/23 5:09 PM) Invalid Interpretation Code AO Manual Urine SS Appearance (U) Cloudy *ABN* (04/29/23 5:09 PM) Invalid Interpretation Code Clear AO Auto Urine SS Bacteria LM.HPF (Urine sed) [#/Area] Trace /HPF Invalid Interpretation Code AO Auto Urine SS Barbiturates Screen Ql (U) Negative (04/29/23 5:09 PM) Invalid Interpretation Code AO Manual Urine SS Benzodiazepines Ql (U) Negative (04/29/23 5:09 PM) Invalid Interpretation Code AO Manual Urine SS Benzoylecgonine Screen Ql (U) Negative (04/29/23 5:09 PM) Invalid Interpretation Code AO Manual Urine SS Bilirubin Ql (U) Negative (04/29/23 5:09 PM) Invalid Interpretation Code Negative AO Auto Urine SS Cannabinoids tested Screen Nom (U) Positive (04/29/23 5:09 PM) Invalid Interpretation Code AO Manual Urine SS Color (U) Dark yellow Invalid Interpretation Code AO Auto Urine SS Glucose Test strip (U) [Mass/Vol] Negative Invalid Interpretation Code Negative AO Auto Urine SS HCG ( test) Ql Negative (04/29/23 5:09 PM) Invalid Interpretation Code AO Manual Urine SS Hemoglobin Auto test strip (U) [Mass/Vol] Negative (04/29/23 5:09 PM) Invalid Interpretation Code Negative AO Auto Urine SS Ketones Ql (U) Trace mg/dL Invalid Interpretation Code Negative AO Auto Urine SS Methadone Screen Ql (U) Negative (04/29/23 5:09 PM) Invalid Interpretation Code AO Manual Urine SS Opiates Screen Ql (U) Positive (04/29/23 5:09 PM) Invalid Interpretation Code AO Manual Urine SS Phencyclidine Ql (U) Positive (04/29/23 5:09 PM) Invalid Interpretation Code AO Manual Urine SS test (u) int Not detected Invalid Interpretation Code AO Manual Urine SS Tricyclic antidepressants Screen Ql (U) Negative (04/29/23 5:09 PM) Invalid Interpretation Code AO Manual Urine SS UA Fatty Casts 0-5 /LPF Invalid Interpretation Code AO Auto Urine SS UA Leuk Est Negative (04/29/23 5:09 PM) Invalid Interpretation Code Negative AO Auto Urine SS UA Mucous 1+ /HPF Invalid Interpretation Code AO Auto Urine SS UA Nitrite Negative (04/29/23 5:09 PM) Invalid Interpretation Code Negative AO Auto Urine SS UA pH 7.0 (04/29/23 5:09 PM) Invalid Interpretation Code 5.0 - 8.0 AO Auto Urine SS UA Protein Negative Invalid Interpretation Code Negative AO Auto Urine SS UA RBC 0-5 /HPF Invalid Interpretation Code None Seen AO Auto Urine SS UA Spec Grav 1.020 (04/29/23 5:09 PM) Invalid Interpretation Code 1.015-1.025 AO Auto Urine SS UA Specimen Type Clean Catch (04/29/23 5:09 PM) Invalid Interpretation Code AO Auto Urine SS UA Squam Epithelial 0-5 /HPF Invalid Interpretation Code None Seen AO Auto Urine SS UA Urobilinogen 1.0 E.U./dL Invalid Interpretation Code 0.2-1.0 AO Auto Urine SS WBC LM.HPF (Urine sed) [#/Area] 0-5 /HPF Invalid Interpretation Code None Seen AO Auto Urine SS SARS-CoV-2 (COVID-19) RNA SANNA+probe Ql (Resp) Negative results do not preclude SARS-CoV-2 infection and should not be used as the sole basis for patient management decisions. Negative results must be combined with clinical observations, patient history, and epidemiological information.There is a risk of false negative values resulting from improperly collected, transported, or handled specimens.There is a risk of false negative values due to the presence of sequence variants in the pathogen targets of the assay, procedural errors, amplification inhibitors in specimens, or inadequate numbers of organisms for amplification.DEREK SARS-CoV-2 Assay is a Real-Time reverse-transcriptase polymerase chain reaction (RT-PCR) based qualitative in vitro diagnostic test intended for the qualitative detection of nucleic acid from the SARS-CoV-2 in nasopharyngeal swab specimens collected from individuals suspected of COVID-19 by their healthcare provider. Testing is limited to laboratories certified under the Clinical Laboratory Improvement Amendments of 1988 (CLIA), 42 U.S.C. 263a, to perform moderate and high complexity tests. Invalid Interpretation Code AO Auto Urine SS LABORATORYOrdered By: Sheyla Hernandez on 04-29-2023 Acetaminophen [Mass/Vol] 0.0 ug/mL Invalid Interpretation Code 10.0 - 30.0 mcg/mL AO Chemistry S LABORATORYOrdered By: SYSTEM SYSTEM on 04-29-2023 Albumin BCP dye [Mass/Vol] 4.4 G/dL Invalid Interpretation Code 3.5 - 5.0 G/dL AO ADM SS Albumin/Globulin [Mass ratio] 1.2 {ratio} Invalid Interpretation Code 1.1 - 2.5 ratio AO ADM SS ALP [Catalytic activity/Vol] 109 U/L Invalid Interpretation Code 40 - 135 U/L AO ADM SS ALT With P-5'-P [Catalytic activity/Vol] 112 U/L Invalid Interpretation Code 14 - 59 U/L AO ADM SS AST With P-5'-P [Catalytic activity/Vol] 56 U/L Invalid Interpretation Code 10 - 40 U/L AO ADM SS Basophil, Absolute 0.1 103/mcL Invalid Interpretation Code 0.0 - 0.2 10^3/mcL AO Workflow SS Basophils/100 WBC (Bld) 0.8 % Invalid Interpretation Code 0.0 - 2.5 % AO Workflow SS Bilirubin [Mass/Vol] 0.5 mg/dL Invalid Interpretation Code 0.2 - 1.0 mg/dL AO ADM SS Comment on above: Interpretive Data: U se of this assay is not recommended for patients undergoing treatment with eltrombopag due to the potential for falsely elevated results. Calcium [Mass/Vol] 9.3 mg/dL Invalid Interpretation Code 8.4 - 10.2 mg/dL AO ADM SS Chloride [Moles/Vol] 99 mmol/L Invalid Interpretation Code 98 - 107 mmol/L AO ADM SS CK [Catalytic activity/Vol] 74 U/L Invalid Interpretation Code 26 - 192 U/L AO ADM SS CO2 [Moles/Vol] 26 mmol/L Invalid Interpretation Code 22 - 29 mmol/L AO ADM SS Creatinine [Mass/Vol] 0.74 mg/dL Invalid Interpretation Code 0.55 - 1.02 mg/dL AO ADM SS Electrolyte Balance 14.0 mEq/L Invalid Interpretation Code 4.0 - 15.0 mEq/L AO ADM SS Eosinophil, Absolute 0.1 103/mcL Invalid Interpretation Code 0.0 - 0.4 10^3/mcL AO Workflow SS Eosinophils/100 WBC (Bld) 1.0 % Invalid Interpretation Code 0.0 - 7.0 % AO Workflow SS Erythrocyte distribution width (RBC) [Ratio] 13.3 % Invalid Interpretation Code 11.5 - 14.5 % AO Workflow SS Ethanol [Mass/Vol] mg/dL Invalid Interpretation Code 0 - 3 mg/dL AO ADM SS GFR/1.73 sq M.predicted among blacks MDRD (S/P/Bld) [Vol rate/Area] 102 ml/min/1.73sqm Invalid Interpretation Code AO Chemistry S Comment on above: Interpretive Data: GFR Population mean for , Non- Americans Ages 20-29 = 116 mL/min/1.73 sq.m. Ages 30-39 = 107 mL/min/1.73 sq.m. Ages 40-49 = 99 mL/min/1.73 sq.m. Ages 50-59 = 93 mL/min/1.73 sq.m. Ages 60-69 = 85 mL/min/1.73 sq.m. Ages 70+ = 75 mL/min/1.73 sq.m. Chronic Kidney Disease: Less than 60 mL/min/1.73 square meters End Stage Renal Disease: Less than 15 mL/min/1.73 square meters GFR/1.73 sq M.predicted among non-blacks MDRD (S/P/Bld) [Vol rate/Area] 84 ml/min/1.73sqm Invalid Interpretation Code AO Chemistry S Comment on above: Interpretive Data: GFR Population mean for , Non- Americans Ages 20-29 = 116 mL/min/1.73 sq.m. Ages 30-39 = 107 mL/min/1.73 sq.m. Ages 40-49 = 99 mL/min/1.73 sq.m. Ages 50-59 = 93 mL/min/1.73 sq.m. Ages 60-69 = 85 mL/min/1.73 sq.m. Ages 70+ = 75 mL/min/1.73 sq.m. Chronic Kidney Disease: Less than 60 mL/min/1.73 square meters End Stage Renal Disease: Less than 15 mL/min/1.73 square meters Globulin 3.8 G/dL Invalid Interpretation Code AO ADM SS Glucose [Mass/Vol] 135 mg/dL Invalid Interpretation Code 70 - 105 mg/dL AO ADM SS Hematocrit (Bld) [Volume fraction] 40.6 % Invalid Interpretation Code 37.0 - 47.0 % AO Workflow SS Hemoglobin (Bld) [Mass/Vol] 13.6 G/dL Invalid Interpretation Code 12.0 - 16.0 G/dL AO Workflow SS Lipase [Catalytic activity/Vol] 51 U/L Invalid Interpretation Code 16 - 77 U/L AO ADM SS Lymphocyte, Absolute 1.5 103/mcL Invalid Interpretation Code 0.8 - 3.9 10^3/mcL AO Workflow SS Lymphocytes/100 WBC (Bld) 13.5 % Invalid Interpretation Code 10.0 - 50.0 % AO Workflow SS MCH (RBC) [Entitic mass] 30.3 pg Invalid Interpretation Code 27.0 - 31.2 pg AO Workflow SS MCHC 33.6 G/dL Invalid Interpretation Code 33.0 - 37.0 G/dL AO Workflow SS MCV (RBC) [Entitic vol] 90.4 fL Invalid Interpretation Code 80.0 - 94.0 fL AO Workflow SS Monocyte distribution width Auto (Bld) [Entitic vol] Not Performed 1 *NA* (04/29/23 2:25 PM) Invalid Interpretation Code 0.00 - 20.00 AO Hematology S Comment on above: Result Comment: MDW testing performed only on adult ER patients between the ages of 18-89 years. Monocyte, Absolute 0.5 103/mcL Invalid Interpretation Code 0.2 - 1.0 10^3/mcL AO Workflow SS Monocytes/100 WBC (Bld) 4.5 % Invalid Interpretation Code 1.7 - 13.0 % AO Workflow SS Neutrophil, Absolute 9.0 103/mcL Invalid Interpretation Code 2.9 - 6.2 10^3/mcL AO Workflow SS Neutrophils/100 WBC (Bld) 80.2 % Invalid Interpretation Code 37.0 - 80.0 % AO Workflow SS Platelet mean volume (Bld) [Entitic vol] 6.8 fL Invalid Interpretation Code 7.4 - 10.4 fL AO Workflow SS Platelets (Bld) [#/Vol] 487 103/mcL Invalid Interpretation Code 130 - 400 10^3/mcL AO Workflow SS Potassium [Moles/Vol] 3.2 mmol/L Invalid Interpretation Code 3.5 - 5.1 mmol/L AO ADM SS Protein [Mass/Vol] 8.2 G/dL Invalid Interpretation Code 6.4 - 8.2 G/dL AO ADM SS RBC (Bld) [#/Vol] 4.50 106/mcL Invalid Interpretation Code 4.20 - 5.40 10^6/mcL AO Workflow SS Salicylates [Mass/Vol] 3.1 mg/dL Invalid Interpretation Code 2.8 - 20.0 mg/dL AO ADM SS Sodium [Moles/Vol] 139 mmol/L Invalid Interpretation Code 136 - 145 mmol/L AO ADM SS Urea nitrogen [Mass/Vol] 9 mg/dL Invalid Interpretation Code 7 - 18 mg/dL AO ADM SS Urea nitrogen/Creatinine [Mass ratio] 12 ratio Invalid Interpretation Code 7 - 27 ratio AO ADM SS WBC (Bld) [#/Vol] 11.2 103/mcL Invalid Interpretation Code 4.6 - 10.8 10^3/mcL AO Workflow SS LIPon 04-29-2023 Lipase Level 51 U/L Normal 16-77 [facility] ([place]) Comment on above: Performed By: #### U A, PREGU #### [facility] [address] [place], [place] [address] PREGUon 04-29-2023 HCG ( test) Ql (U) Negative Normal [facility] ([place]) Comment on above: Performed By: #### A DIFF, ANEU, CMP, MG, GFR, LD, CRP, CBC, ESR #### [address] [address] test (u) int Not detected Invalid Interpretation Code [facility] ([place]) Comment on above: Performed By: #### A DIFF, ANEU, CMP, MG, GFR, LD, CRP, CBC, ESR #### [address] [address] SALon 04-29-2023 Salicylate Level 3.1 mg/dL Normal 2.8-20.0 [facility] ([place]) Comment on above: Performed By: #### A DIFF, ANEU, CMP, MG, GFR, LD, CRP, CBC, ESR #### [address] [address] TOXSCon 04-29-2023 U Ampheta (AO) Negative Normal [facility] ([place]) Comment on above: Performed By: #### A DIFF, ANEU, CMP, MG, GFR, LD, CRP, CBC, ESR #### [address] [address] U Angy (AO) Negative Normal [facility] ([place]) Comment on above: Performed By: #### A DIFF, ANEU, CMP, MG, GFR, LD, CRP, CBC, ESR #### [address] [address] U Narinder (AO) Negative Normal [facility] ([place]) Comment on above: Performed By: #### A DIFF, ANEU, CMP, MG, GFR, LD, CRP, CBC, ESR #### [address] [address] U Cannab (AO) Positive Normal [facility] ([place]) Comment on above: Performed By: #### A DIFF, ANEU, CMP, MG, GFR, LD, CRP, CBC, ESR #### [address] [address] U Cocaine (AO) Negative [facility] ([place]) Comment on above: Performed By: #### A DIFF, ANEU, CMP, MG, GFR, LD, CRP, CBC, ESR #### [address] [address] U Methadone (AO) Negative [facility] ([place]) Comment on above: Performed By: #### A DIFF, ANEU, CMP, MG, GFR, LD, CRP, CBC, ESR #### [address] [address] U PCP (AO) Positive [facility] ([place]) Comment on above: Performed By: #### A DIFF, ANEU, CMP, MG, GFR, LD, CRP, CBC, ESR #### [address] [address] U TCA (AO) Negative [facility] ([place]) Comment on above: Performed By: #### A DIFF, ANEU, CMP, MG, GFR, LD, CRP, CBC, ESR #### [address] [address] Urine Opiates (AO) Positive [facility] ([place]) Comment on above: Performed By: #### A DIFF, ANEU, CMP, MG, GFR, LD, CRP, CBC, ESR #### [address] [address] UAon 04-29-2023 Color (U) Dark yellow [facility] ([place]) Comment on above: Performed By: #### A DIFF, ANEU, CMP, MG, GFR, LD, CRP, CBC, ESR #### [address] [address] Glucose (U) [Mass/Vol] Negative Normal [facility] ([place]) Comment on above: Performed By: #### A DIFF, ANEU, CMP, MG, GFR, LD, CRP, CBC, ESR #### [address] [address] Ketones Ql (U) Trace Abnormal Negative [facility] ([place]) Comment on above: Performed By: #### A DIFF, ANEU, CMP, MG, GFR, LD, CRP, CBC, ESR #### [address] [address] UA Appear Cloudy Abnormal Clear [facility] ([place]) Comment on above: Performed By: #### A DIFF, ANEU, CMP, MG, GFR, LD, CRP, CBC, ESR #### [address] [address] UA Blood Negative Normal Negative [facility] ([place] Comment on above: Performed By: #### A DIFF, ANEU, CMP, MG, GFR, LD, CRP, CBC, ESR #### [address] [address] UA Leuk Est Negative Normal Negative [facility] ([place] Comment on above: Performed By: #### A DIFF, ANEU, CMP, MG, GFR, LD, CRP, CBC, ESR #### [address] [address] UA Nitrite Negative Normal Negative [facility] ([place]) Comment on above: Performed By: #### A DIFF, ANEU, CMP, MG, GFR, LD, CRP, CBC, ESR #### [address] [address] UA pH 7.0 Normal 5.0 - 8.0 [facility] ([place]) Comment on above: Performed By: #### A DIFF, ANEU, CMP, MG, GFR, LD, CRP, CBC, ESR #### [address] [address] UA Protein Negative Normal Negative [facility] ([place] Comment on above: Performed By: #### A DIFF, ANEU, CMP, MG, GFR, LD, CRP, CBC, ESR #### [address] [address] UA Spec Grav 1.020 Normal 1.015-1.025 [facility] ([place]) Comment on above: Performed By: #### A DIFF, ANEU, CMP, MG, GFR, LD, CRP, CBC, ESR #### [address] [address] UA Specimen Type Clean Catch Normal [facility] ([place]) Comment on above: Performed By: #### A DIFF, ANEU, CMP, MG, GFR, LD, CRP, CBC, ESR #### [address] [address] UA Urobilinogen 1.0 E.U./dL Normal 0.2-1.0 [facility] ([place] Comment on above: Performed By: #### A DIFF, ANEU, CMP, MG, GFR, LD, CRP, CBC, ESR #### [address] [address] Urobilinogen (U) [Mass/Vol] Negative Normal Negative [facility] ([place] Comment on above: Performed By: #### A DIFF, ANEU, CMP, MG, GFR, LD, CRP, CBC, ESR #### [address] [address] Laboratory - Chemistry and C hemistry - challengeon 04-27-2023 Albumin BCP dye [Mass/Vol] 4.5 g/dL 3.4 - 5.0 [facility] Work Phone: ALP [Catalytic activity/Vol] 95 U/L 33 - 110 [facility] Work Phone: ALT With P-5'-P [Catalytic activity/Vol] 104 U/L above high threshold 7 - 45 [facility] Work Phone: Comment on above: Patients treated wit h Sulfasalazine may generate falsely decreased results for ALT. Anion gap [Moles/Vol] 19 mmol/L 10 - 20 [facility] Work Phone: AST With P-5'-P [Catalytic activity/Vol] 73 U/L above high threshold 9 - 39 [facility] Work Phone: Bilirubin [Mass/Vol] 0.6 mg/dL 0.0 - 1.2 [facility] Work Phone: Calcium [Mass/Vol] 9.7 mg/dL 8.6 - 10.6 [facility] Work Phone: Chloride [Moles/Vol] 94 mmol/L below low threshold 98 - 107 [facility] Work Phone: CO2 [Moles/Vol] 27 mmol/L 21 - 32 [facility] Work Phone: Creatinine [Mass/Vol] 0.60 mg/dL See Below [facility] Work Phone: Comment on above: Reference Range: 0.5 0 - 1.05 Glucose [Mass/Vol] 151 mg/dL above high threshold 74 - 99 [facility] Work Phone: Potassium [Moles/Vol] 3.2 mmol/L below low threshold 3.5 - 5.3 [facility] Work Phone: Protein [Mass/Vol] 7.6 g/dL 6.4 - 8.2 [facility] Work Phone: Sodium [Moles/Vol] 137 mmol/L 136 - 145 [facility] Work Phone: Urea nitrogen [Mass/Vol] 10 mg/dL 6 - 23 [facility] Work Phone: Laboratory - Hematology and Cell countson 04-27-2023 Erythrocyte distribution width (RBC) [Ratio] 12.1 % See Below [facility] Work Phone: Comment on above: Reference Range: 11. 5 - 14.5 Hematocrit (Bld) [Volume fraction] 44.1 % See Below [facility] Work Phone: Comment on above: Reference Range: 36. 0 - 46.0 Hemoglobin (Bld) [Mass/Vol] 14.0 g/dL See Below -[facility] Work Phone: Comment on above: Reference Range: 12. 0 - 16.0 MCHC (RBC) [Mass/Vol] 31.7 g/dL below low threshold See Below -[facility] Work Phone: Comment on above: Reference Range: 32. 0 - 36.0 MCV (RBC) [Entitic vol] 95 fL 80 - 100 -[facility] Work Phone: Platelets (Bld) [#/Vol] 426 10*3/uL 150 - 450 -[facility] Work Phone: RBC (Bld) [#/Vol] 4.62 {x10E12/L} See Below -[facility] Work Phone: Comment on above: Reference Range: 4.0 0 - 5.20 WBC (Bld) [#/Vol] 7.0 10*3/uL 4.4 - 11.3 -[facility] Work Phone: No Panel Informationon 04-27 >90 >90 -Pain [facility] Work Phone: Comment on above: CALCULATIONS OF ESTUARDO MATED GFR ARE PERFORMED USING THE 2020 CKD-EPI STUDY REFIT EQUATION WITHOUT THE RACE VARIABLE FOR THE IDMS-TRACEABLE CREATININE METHODS.https://jasn.asnjournals.org/content/early// N.6284055584 0.0 {/100_WBC} 0.0-0.0 -[facility] Work Phone: CT Abdomen and Pelvis with I V Contraston 04-26-2023 CT Abdomen and Pelvis W contrast IV Normal -[facility] Work Phone: CT Abdomen and Pelvis W contrast IV Please click on the link to view the study images Normal [facility] Work Phone: Complete Blood Count + Diffe ade 04-26-2023 Basophils/100 WBC (Bld) 1.0 % 0.0 - 2.0 [facility] Network Work Phone: Erythrocyte distribution width (RBC) [Ratio] 12.3 % See Below [facility] Work Phone: Comment on above: Reference Range: 11. 5 - 14.5 Hematocrit (Bld) [Volume fraction] 40.9 % See Below -[facility] Work Phone: Comment on above: Reference Range: 36. 0 - 46.0 Hemoglobin (Bld) [Mass/Vol] 14.1 g/dL See Below -[facility] Work Phone: Comment on above: Reference Range: 12. 0 - 16.0 Lymphocytes/100 WBC (Bld) 27.6 % See Below -[facility] Work Phone: Comment on above: Reference Range: 13. 0 - 44.0 MCHC (RBC) [Mass/Vol] 34.5 g/dL See Below - [facility] Work Phone: Comment on above: Reference Range: 32. 0 - 36.0 MCV (RBC) [Entitic vol] 89 fL 80 - 100 [facility] Work Phone: Monocytes/100 WBC (Bld) 7.5 % 2.0 - 10.0 [facility] Work Phone: Neutrophils/100 WBC (Bld) 60.2 % See Below -[facility] Work Phone: Comment on above: Reference Range: 40. 0 - 80.0 Platelets (Bld) [#/Vol] 368 10*3/uL 150 - 450 [facility] Work Phone: RBC (Bld) [#/Vol] 4.57 {x10E12/L} See Below [facility] Work Phone: Comment on above: Reference Range: 4.0 0 - 5.20 WBC (Bld) [#/Vol] 8.2 10*3/uL 4.4 - 11.3 [facility] Work Phone: Complete Blood Count + Differential 0.08 {x10E9/L} See Below [facility] Work Phone: Comment on above: Reference Range: 0.0 0 - 0.10 Complete Blood Count + Differential 0.26 {x10E9/L} See Below [facility] Work Phone: Comment on above: Reference Range: 0.0 0 - 0.70 Complete Blood Count + Differential 0.62 {x10E9/L} See Below [facility] Work Phone: Comment on above: Reference Range: 0.1 0 - 1.00 Complete Blood Count + Differential 2.27 {x10E9/L} See Below [facility] Work Phone: Comment on above: Reference Range: 1.2 0 - 4.80 Complete Blood Count + Differential 4.95 {x10E9/L} See Below [facility] Work Phone: Comment on above: Reference Range: 1.2 0 - 7.70 Complete Blood Count + Differential 3.2 % 0.0 - 6.0 [facility] Work Phone: Complete Blood Count + Differential 0.5 % 0.0 - 0.9 [facility] Work Phone: Comment on above: Immature Granulocyte Count (IG) includes promyelocytes, myelocytes and metamyelocytes but does not include bands. Percent differential counts (%) should be interpreted in the context of the absolute cell counts (cells/L). Complete Blood Count + Differential 0.0 {/100_WBC} 0.0-0.0 [facility] Work Phone: Cult, Urineon 04-26-2023 Bacteria identified Cx Nom (U) -Pain [facility] Work Phone: Hepatic Function Panelon Albumin BCP dye [Mass/Vol] 4.6 g/dL 3.4 - 5.0 -Pain [facility] Work Phone: ALP [Catalytic activity/Vol] 77 U/L 33 - 110 -Pain [facility] Work Phone: ALT With P-5'-P [Catalytic activity/Vol] 89 U/L above high threshold 7 - 45 -Pain [facility] Work Phone: Comment on above: Patients treated wit h Sulfasalazine may generate falsely decreased results for ALT. AST With P-5'-P [Catalytic activity/Vol] 96 U/L above high threshold 9 - 39 MP-[facility] Work Phone: Comment on above: MILD HEMOLYSIS DETEC DEYANIRA. The result may be falsely elevated due tohemolysis or other interferents. Clinical correlation is recommended.Repeat testing may be considered. Bilirubin [Mass/Vol] 0.5 mg/dL 0.0 - 1.2 MP-P ain [facility] Work Phone: Bilirubin.direct [Mass/Vol] 0.1 mg/dL 0.0 - 0.3 MP-Pain [facility] Work Phone: Comment on above: MILD HEMOLYSIS DETEC DEYANIRA. The result may be falsely decreased due tohemolysis or other interferents. Clinical correlation is recommended.Repeat testing may be considered. Protein [Mass/Vol] 7.8 g/dL 6.4 - 8.2 MP-Colin n [facility] Work Phone: Hepatitis Panel, Acute (HCFA )on 04-26-2023 HAV IgM IA Ql Non-Reactive See Below [facility] Work Phone: Comment on above: SOURCE: Reference Ra nge: NONREACTIVE Biotin interference may cause falsely decreased results. Patients taking a Biotin dose of up to 5 mg/day should refrain from taking Biotin for 24 hours before sample collection. Providers may contact their local laboratory for further information. Hepatitis Panel, Acute (HCFA) Non-Reactive See Below [facility] Work Phone: Comment on above: Reference Range: NON REACTIVE Results from patients taking biotin supplements or receiving high-dose biotin therapy should be interpreted with caution due to possible interference with this test. Providers may contact their local laboratory for further information. Reference Range: NON REACTIVE Biotin interference may cause falsely decreased results. Patients taking a Biotin dose of up to 5 mg/day should refrain from taking Biotin for 24 hours before sample collection. Providers may contact their local laboratory for further information. Laboratory - Blood bankon ABO group Nom (Bld) A MP-Pa in [facility] Work Phone: Blood group antibody screen Ql Negative [facility] Work Phone: Rh immune globulin screen (Bld) [Interp] Negative [facility] Work Phone: Comment on above: Review your Rh Negat rowena female patient's potential need for Rh Immune Globulin (RhIg)administration. Laboratory - Chemistry and C hemistry - challengeon 04-26-2023 Creatinine (U) [Mass/Vol] 64.6 mg/dL See Below [facility] Work [facility]: Comment on above: Reference Range: 20. 0 - 320.0 Sodium (U) [Moles/Vol] 28 mmol/L See Below [facility] Work Phone: Comment on above: Reference Range: Not Established Sodium/Creatinine (U) [Ratio] 43 {mmol/g_Creat} See Below [facility] Work Phone: Comment on above: Reference Range: Not Established Anion gap [Moles/Vol] 20 mmol/L 10 - 20 [facility] Work Phone: Anion gap [Moles/Vol] 18 mmol/L 10 - 20 [facility] Work Phone: AST With P-5'-P [Catalytic activity/Vol] 99 U/L above high threshold 9 - 39 [facility] Work Phone: Comment on above: MILD HEMOLYSIS DETEC DEYANIRA. The result may be falsely elevated due tohemolysis or other interferents. Clinical correlation is recommended.Repeat testing may be considered. Calcium [Mass/Vol] 9.5 mg/dL 8.6 - 10.6 [facility] Work Phone: Calcium [Mass/Vol] 9.6 mg/dL 8.6 - 10.6 [facility] Work Phone: Chloride [Moles/Vol] 96 mmol/L below low threshold 98 - 107 [facility] Work Phone: Chloride [Moles/Vol] 97 mmol/L below low threshold 98 - 107 [facility] Work Phone: CO2 [Moles/Vol] 23 mmol/L 21 - 32 [facility] Work Phone: CO2 [Moles/Vol] 24 mmol/L 21 - 32 [facility] Work Phone: Creatinine [Mass/Vol] 0.68 mg/dL See Below [facility] Work Phone: Comment on above: Reference Range: 0.5 0 - 1.05 Creatinine [Mass/Vol] 0.69 mg/dL See Below - [facility] Work Phone: Comment on above: Reference Range: 0.5 0 - 1.05 Glucose [Mass/Vol] 153 mg/dL above high threshold 74 - 99 [facility] Work Phone: Glucose [Mass/Vol] 155 mg/dL above high threshold 74 - 99 [facility] Work Phone: Potassium [Moles/Vol] 4.6 mmol/L 3.5 - 5.3 [facility] Work Phone: Comment on above: MILD HEMOLYSIS DETEC DEYANIRA. The result may be falsely elevated due tohemolysis or other interferents. Clinical correlation is recommended.Repeat testing may be considered. Potassium [Moles/Vol] 4.3 mmol/L 3.5 - 5.3 [facility] Work Phone: Comment on above: MILD HEMOLYSIS DETEC DEYANIRA. The result may be falsely elevated due tohemolysis or other interferents. Clinical correlation is recommended.Repeat testing may be considered. Protein [Mass/Vol] 7.9 g/dL 6.4 - 8.2 [facility] Work Phone: Sodium [Moles/Vol] 134 mmol/L below low threshold 136 - 145 [facility] Work Phone: Sodium [Moles/Vol] 135 mmol/L below low threshold 136 - 145 [facility] Work Phone: Urea nitrogen [Mass/Vol] 17 mg/dL 6 - 23 [facility] Work Phone: Laboratory - Coagulationon 0 04-26-2023 aPTT Coag (PPP) [Time] 30 s 27 - 38 [facility] Work Phone: Comment on above: Note new reference mony parnell as of 03/08/2023 at 10:00am. INR Coag (PPP) [Relative time] 1.2 {INR} above high threshold 0.9 - 1.1 [facility] Work Phone: PT Coag (PPP) [Time] 13.3 s above high threshold 9.8 - 12.8 [facility] Work Phone: Comment on above: Note new reference mony parnell as of 03/08/2023 at 10:00am. Laboratory - Drug toxicology on 04-26-2023 Amphetamines Screen Ql (U) Negative NEGATIVE [facility] Work Phone: Comment on above: CUTOFF LEVEL: 500 NG /ML Cross-reactivity has been reported with high concentrations of the following drugs: buproprion, chloroquine, chlorpromazine, ephedrine, mephentermine, fenfluramine, phentermine, phenylpropanolamine, pseudoephedrine, and propranolol. Barbiturates Screen Ql (U) Negative NEGATIVE [facility] Work Phone: Comment on above: CUTOFF LEVEL: 200 NG /ML Benzodiazepines Ql (U) Negative NEGATIVE [facility] Work Phone: Comment on above: CUTOFF LEVEL: 200 NG /ML Benzoylecgonine Screen Ql (U) Negative NEGATIVE [facility] Work Phone: Comment on above: CUTOFF LEVEL: 150 NG /ML Cannabinoids Screen Ql (U) Positive Abnormal NEGATIVE [facility] Work Phone: Comment on above: CUTOFF LEVEL: 50 NG/ ML Methadone Screen Ql (U) Negative NEGATIVE [facility] Work Phone: Comment on above: CUTOFF LEVEL: 150 NG /ML The metabolite Z-tpnzi-uikfhhlvhfjfhu (LAAM) is not detected by this method in concentrations that would be found in the urine of patients on LAAM therapy. Opiates Screen Ql (U) Positive Abnormal NEGATIVE [facility]- [facility] Work Phone: Comment on above: CUTOFF LEVEL: 300 NG /ML The opiate screen does not detect fentanyl, meperidine, or tramadol. Oxycodone is not consistently detected (refer to Oxycodone Screen, Urine result). oxyCODONE+oxyMORphone Screen Ql (U) Positive Abnormal NEGATIVE MP-Pain [facility] Work Phone: Comment on above: CUTOFF LEVEL: 100 NG /ML This test will accurately detect both oxycodone and oxymorphone. Phencyclidine Ql (U) Negative NEGATIVE MP-P ain [facility] Work Phone: Comment on above: CUTOFF LEVEL: 25 NG/ ML Cross-reactivity has been reported with dextromethorphan. Lactate, Levelon 04-26-2023 Lactate [Moles/Vol] Canceled MP-Pa in [facility] Work Phone: Comment on above: Venipuncture immedia tely after or during the administration of Metamizole may lead to falsely low results. Testing should be performed immediately prior to Metamizole dosing. Lactate [Moles/Vol] 2.9 mmol/L above high threshold 0.4 - 2.0 [facility] Work [facility]: Comment on above: Venipuncture immedia tely after or during the administration of Metamizole may lead to falsely low results. Testing should be performed immediately prior to Metamizole dosing. Lipase, Serumon 04-26-2023 Lipase [Catalytic activity/Vol] 73 U/L 9 - 82 -Pain [facility] Work Phone: Comment on above: Venipuncture immedia tely after or during the administration of Metamizole may lead to falsely low results. Testing should be performed immediately prior to Metamizole dosing. X-wvcgxb-x-benzoquinone imine (metabolite of Acetaminophen) will generate erroneously low results in samples for patients that have taken toxic doses of acetaminophen. No Panel Informationon 04-26 74 {mmol/g_Creat} 38 - 318 [facility] Work Phone: 48 mmol/L See Below [facility] Work Phone: Comment on above: Reference Range: Not Established SEE BELOW [facility] Work Phone: Comment on above: Drug screen results are presumptive and should not be used to assess compliance with prescribed medication. Contact the performing [facility] laboratory to add-on definitive confirmatory testing if clinically indicated. .Toxicology screening results are reported qualitatively. The concentration must be greater than or equal to the cutoff to be reported as positive. The concentration at which the screening test can detect an individual drug or metabolite varies. The absence of expected drug(s) and/or drug metabolite(s) may indicate non-compliance, inappropriate timing of specimen collection relative to drug administration, poor drug absorption, diluted/adulterated urine, or limitations of testing. For medical purposes only; not valid for forensic use. .Interpretive questions should be directed to the laboratory medical directors. Please click on the link to view the study images Normal [facility] Work Phone: [email or web address]=[email or web address] [id number] tType=ECG&Site=1&Output Type=PDF&Ext=PDF [facility] Work Phone: Please see ED Provid er Note for formal interpretation [facility] Work Phone: Normal [facility] Work Phone: [phone] [facility] Work Phone: [phone] [facility] Work Phone: 202 1 [facility] Work Phone: 142 1 [facility] [place] Work Phone: 220 1 [facility] [place] Work Phone: 16 1 [facility] [place] Work Phone: 30 1 [facility] [place] Work Phone: 27 1 [facility] [place] Work Phone: 36 1 [facility] [place] Work Phone: [phone] [facility] [place] Work Phone: 364 1 [facility] [place] Work Phone: 92 1 [facility] [place] Work Phone: 156 1 [facility] [place] Work Phone: 98 1 [facility] [place] Work Phone: >90 >90 [facility] [place] Work Phone: Comment on above: CALCULATIONS OF ESTUARDO MATED GFR ARE PERFORMED USING THE 2020 CKD-EPI STUDY REFIT EQUATION WITHOUT THE RACE VARIABLE FOR THE IDMS-TRACEABLE CREATININE METHODS.https://jasn.asnjournals.org/content// N.7786084655 URINALYSIS WITH CULTURE IF I NDICATEDon 04-26-2023 Color (U) YELLOW See Below [facility] [place] Work Phone: Comment on above: Reference Range: STR AW,YELLOW Glucose Ql (U) Negative NEGATIVE [facility] [place] Work Phone: Ketones Ql (U) Negative NEGATIVE [facility] [place] Work Phone: Leukocyte esterase Test strip Ql (U) TRACE Abnormal NEGATIVE [facility] [place] Work Phone: pH (U) 5.0 [pH] 5.0 - 8.0 [facility] Work Phone: Protein (U) [Mass/Vol] Negative NEGATIVE [facility] Work Phone: RBC (U) [#/Vol] Negative NEGATIVE [facility] Work Phone: Specific gravity (U) [Rel density] 1.018 1 See Below [facility] Work Phone: Comment on above: Reference Range: 1.0 05 - 1.035 URINALYSIS WITH CULTURE IF INDICATED Negative NEGATIVE [facility] Work Phone: Comment on above: CUTOFF LEVEL: 5 NG/M L URINALYSIS WITH CULTURE IF INDICATED <2.0 0.0 - 1.9 [facility] Work Phone: URINALYSIS WITH CULTURE IF INDICATED HAZY CLEAR [facility] Work Phone: Urinalysison 04-26-2023 Appearance (U) Canceled [facility] Work Phone: Color (U) Canceled [facility] Work Phone: Glucose Ql (U) Canceled [facility] Work Phone: Ketones Ql (U) Canceled [facility] Work Phone: Leukocyte esterase Test strip Ql (U) Canceled [facility] Work Phone: Protein (U) [Mass/Vol] Canceled [facility] Work Phone: RBC (U) [#/Vol] Canceled [facility] Work Phone: Specific gravity (U) [Rel density] Canceled [facility] Work Phone: Urinalysis Canceled -[facility] Work Phone: Comment on above: Concentrations > = 2 0 mg/dL of ascorbic acid can be expected to cause strong interference in the reactions testing for glucose, nitrite and blood. It is recommended to discontinue Vitamin C administration and retest in 10 hours. Urinalysis, Microscopicon Hyaline casts LM Ql (Urine sed) 1+ Abnormal [facility] Work Phone: Urinalysis, Microscopic 1+ [facility] Work Phone: Urinalysis, Microscopic <1 [facility] Work Phone: Urinalysis, Microscopic 17 {/HPF} [facility] Work Phone: Urinalysis, Microscopic 1 {/HPF} 0-5 [facility] Work Phone: Urinalysis, Microscopic 9 {/HPF} Abnormal 0-5 [facility] Work Phone: .Auto Diffon 04-25-2023 Basophil, Absolute 0.0 10 3/mcL Normal 0.0-0.2 [facility] ([place]) Comment on above: Performed By: #### U A, PREGU #### [facility] [address] [place], [place] [address] Basophils/100 WBC (Bld) 0.4 % Normal 0.0-2.5 [facility] ([place]) Comment on above: Performed By: #### U A, PREGU #### [facility] [address] [place], [place] [address] Eosinophil, Absolute 0.4 10 3/mcL Normal 0.0-0.4 [facility] ([place]) Comment on above: Performed By: #### U A, PREGU #### [facility] [address] [place], [place] [address] Eosinophils/100 WBC (Bld) 2.9 % Normal 0.0-7.0 [facility] ([place]) Comment on above: Performed By: #### U A, PREGU #### [facility] [address] [place], [place] [address] Lymphocyte, Absolute 3.5 10 3/mcL Normal 0.8-3.9 [facility] ([place]) Comment on above: Performed By: #### U A, PREGU #### [facility] [address] [place], [place] [address] Lymphocytes/100 WBC (Bld) 25.5 % Normal 10.0-50.0 [facility] ([place]) Comment on above: Performed By: #### U A, PREGU #### [facility] [address] [place], [place] [address] Monocyte, Absolute 0.8 10 3/mcL Normal 0.2-1.0 [facility] ([place]) Comment on above: Performed By: #### U A, PREGU #### [facility] [address] [place], [place] [address] Monocytes/100 WBC (Bld) 6.2 % Normal 1.7-13.0 [facility] [facility] ([place]) Comment on above: Performed By: #### U A, PREGU #### Sean Hunters [address] [place], [place] [address] Neutrophils/100 WBC (Bld) 64.8 % Normal 37.0-80.0 [facility] ([place]) Comment on above: Performed By: #### U A, PREGU #### Sean Davisillon [address] [place], [place] [address] .GFRon 04-25-2023 GFR 79 ml/min/1.73sqm Normal [facility] ([place]) Comment on above: Result Comment: GFR Population mean for , Non- Americans Ages 20-29 = 116 mL/min/1.73 sq.m. Ages 30-39 = 107 mL/min/1.73 sq.m. Ages 40-49 = 99 mL/min/1.73 sq.m. Ages 50-59 = 93 mL/min/1.73 sq.m. Ages 60-69 = 85 mL/min/1.73 sq.m. Ages 70+ = 75 mL/min/1.73 sq.m. Chronic Kidney Disease: Less than 60 mL/min/1.73 square meters End Stage Renal Disease: Less than 15 mL/min/1.73 square meters Performed By: #### U A, PREGU #### Sean Hunters [address] [place], [place] [address] GFR Non- 65 ml/min/1.73sqm Normal [facility] ([place]) Comment on above: Result Comment: GFR Population mean for , Non- Americans Ages 20-29 = 116 mL/min/1.73 sq.m. Ages 30-39 = 107 mL/min/1.73 sq.m. Ages 40-49 = 99 mL/min/1.73 sq.m. Ages 50-59 = 93 mL/min/1.73 sq.m. Ages 60-69 = 85 mL/min/1.73 sq.m. Ages 70+ = 75 mL/min/1.73 sq.m. Chronic Kidney Disease: Less than 60 mL/min/1.73 square meters End Stage Renal Disease: Less than 15 mL/min/1.73 square meters Performed By: #### U A, PREGU #### Sean Hunters [address] [place], [place] [address] .MDWon 04-25-2023 Monocyte Distribution Width 20.55 High 0.00-20.00 [facility] ([place]) Comment on above: Result Comment: For adults in ED, MDW>20.0 may be associated with a higher risk of sepsis during the first 12hrs of hospital admission Performed By: #### U A, PREGU #### Sean [address]ters [address] [place], [place] [address] .Morphon 04-25-2023 Platelet Estimate Increased Normal [facility] ([place]) Comment on above: Performed By: #### U A, PREGU #### Sean Loaizan [address] [place], [place] [address] .NEUABSon 04-25-2023 Neutrophil, Absolute 9.0 10 3/mcL High 2.9-6.2 [facility] ([place]) Comment on above: Performed By: #### U A, PREGU #### Sean Loaizan [address] [place], [place] [address] .Urinalysis Microscopic (AO) on 04-25-2023 UA Bacteria Trace Abnormal [facility] [place]) Comment on above: Performed By: #### U A, PREGU #### Sean Loaiz[address] [place], [place] [address] UA Hyal Cast 0-5 Abnormal [facility] ([place]) Comment on above: Performed By: #### U A, PREGU #### Seanoz Loaizan [address] [place], [place] [address] UA RBC 0-5 Abnormal None Seen [facility] ([place] Comment on above: Performed By: #### U A, PREGU #### Seanoz Loaizan [address] [place], [place] [address] UA Squam Epithelial 5-10 Abnormal None Seen [facility] ([place]) Comment on above: Performed By: #### U A, PREGU #### Sean Loaiz[address] [place], [place] [address] UA WBC 0-5 Abnormal None Seen [facility] ([place] Comment on above: Performed By: #### U A, PREGU #### Sean Loaiz[address] [place], [place] [address] CBCon 04-25-2023 Erythrocyte distribution width (RBC) [Ratio] 12.4 % Normal 11.5-14.5 [facility] ([place] Comment on above: Performed By: #### U A, PREGU #### Sean Loaiz[address] [place], [place] [address] Hematocrit (Bld) [Volume fraction] 46.7 % Normal 37.0-47.0 [facility] ([place] Comment on above: Performed By: #### U A, PREGU #### Sean Loaiz[address] [place], [place] [address] Hgb 15.5 G/dL Normal 12.0-16.0 [facility] ([place] Comment on above: Performed By: #### U A, PREGU #### Sean Loaizan [address] [place], [place] [address] MCH (RBC) [Entitic mass] 30.6 pg Normal 27.0-31.2 [facility] ([place] Comment on above: Performed By: #### U A, PREGU #### Sean Loaiz[address] [place], [place] [address] MCHC 33.3 G/dL Normal 33.0-37.0 [facility] ([place] Comment on above: Performed By: #### U A, PREGU #### Seanoz Loaizan [address] [place], [place] [address] MCV (RBC) [Entitic vol] 91.9 fL Normal 80.0-94.0 [facility] ([place] Comment on above: Performed By: #### U A, PREGU #### Seanoz DavisHunters [address] [place], [place] [address] Platelet 471 10 3/mcL High 130-400 [facility] ([place] Comment on above: Performed By: #### U A, PREGU #### Seanoz DavisHunters [address] [place], [place] [address] Platelet mean volume (Bld) [Entitic vol] 6.9 fL Low 7.4-10.4 [facility] ([place] Comment on above: Performed By: #### U A, PREGU #### Seanoz DavisHunters [address] [place], [place] [address] RBC 5.08 10 6/mcL Normal 4.20-5.40 [facility] ([place]) Comment on above: Performed By: #### U A, PREGU #### Sean Davisillon [address] [place], [place] [address] WBC 14.0 10 3/mcL High 4.6-10.8 [facility] ([place] Comment on above: Performed By: #### U A, PREGU #### [facility] [address] [place], [place] [address] CMPon 04-25-2023 Albumin Level 4.8 G/dL Normal 3.5-5.0 [facility] ([place] Comment on above: Performed By: #### U A, PREGU #### [facility] [address] [place], [place] [address] Albumin/Globulin [Mass ratio] 1.2 {ratio} Normal 1.1-2.5 [facility] ([place] Comment on above: Performed By: #### U A, PREGU #### [facility] [address] [place], [place] [address] ALP [Catalytic activity/Vol] 98 U/L Normal 40-135 [facility] ([place] Comment on above: Performed By: #### U A, PREGU #### [facility] [address] [place], [place] [address] ALT [Catalytic activity/Vol] 99 U/L High 14-59 [facility] ([place] Comment on above: Performed By: #### U A, PREGU #### [facility] [address] [place], [place] [address] AST [Catalytic activity/Vol] 89 U/L High 10-40 [facility] ([place] Comment on above: Performed By: #### U A, PREGU #### [facility] [address] [place], [place] [address] Bili Total 0.5 mg/dL Normal 0.2-1.0 [facility] ([place] Comment on above: Result Comment: Use of this assay is not recommended for patients undergoing treatment with eltrombopag due to the potential for falsely elevated results. Performed By: #### U A, PREGU #### [facility] [address] [place], [place] [address] BUN/Creatinine Ratio 24 ratio Normal 7-27 [facility] ([place]) Comment on above: Performed By: #### U A, PREGU #### [facility] [address] [place], [place] [address] Calcium [Mass/Vol] 9.9 mg/dL Normal 8.4-10.2 [facility] ([place]) Comment on above: Performed By: #### U A, PREGU #### Sean Davis[address] [place], [place] [address] Chloride [Moles/Vol] 100 mmol/L Normal 98-107 [facility] ([place]) Comment on above: Performed By: #### U A, PREGU #### Sean Reynolds [address] [place], [place] [address] CO2 [Moles/Vol] 23 mmol/L Normal 22-29 [facility] ([place]) Comment on above: Performed By: #### U A, PREGU #### Seanoz DavisHunters [address] [place], [place] [address] Creatinine [Mass/Vol] 0.92 mg/dL Normal 0.55-1.02 [facility] ([place]) Comment on above: Performed By: #### U A, PREGU #### Seanoz Loaizan [address] [place], [place] [address] Electrolyte Balance 13.0 mEq/L Normal 4.0-15.0 [facility] ([place]) Comment on above: Performed By: #### U A, PREGU #### Seanoz DavisHunters [address] [place], [place] [address] Globulin 4.1 G/dL Normal [facility] ([place] Comment on above: Performed By: #### U A, PREGU #### Seanoz Reynolds [address] [place], [place] [address] Glucose [Mass/Vol] 150 mg/dL High 70-105 [facility] ([place] Comment on above: Performed By: #### U A, PREGU #### Seanoz DavisHunters [address] [place], [place] [address] Potassium [Moles/Vol] 4.8 mmol/L Normal 3.5-5.1 [facility] ([place]) Comment on above: Performed By: #### U A, PREGU #### Sean [address] [place], [place] [address] Sodium [Moles/Vol] 136 mmol/L Normal 136-145 [facility] ([place] Comment on above: Performed By: #### U A, PREGU #### Sean [address] [place], [place] [address] Total Protein 8.9 G/dL High 6.4-8.2 [facility] ([place] Comment on above: Performed By: #### U A, PREGU #### Seanoz Loaizan [address] [place], [place] [address] Urea nitrogen [Mass/Vol] 22 mg/dL High 7-18 [facility] ([place] Comment on above: Performed By: #### U A, PREGU #### Sean Hunters [address] [place], [place] [address] CT ABD/PELVIS W/ IV CONTRAST ONLYon 04-25-2023 CT ABD/PELVIS W/ IV CONTRAST ONLY ORIGINAL EXAMINATION: CT OF THE ABDOMEN AND PELVIS WITH CONTRAST 04/25/2023 1:17 am TECHNIQUE: CT of the abdomen and pelvis was performed with the administration of intravenous contrast. Multiplanar reformatted images are provided for review. Automated exposure control, iterative reconstruction, and/or weight based adjustment of the mA/kV was utilized to reduce the radiation dose to as low as reasonably achievable. COMPARISON: CT abdomen and pelvis on 03/28/2023. Ultrasound abdomen on 03/30/2023 HISTORY: ORDERING SYSTEM PROVIDED HISTORY: Reason for Exam: abdominal pain FINDINGS: Lower Chest: Mild scarring in right middle lobe and lingula is unchanged. No acute abnormality is present at the lung bases. Organs: Hepatomegaly is unchanged with right lobe of the liver measuring 22.7 cm in length. There is geographic fatty infiltration of the liver. No biliary ductal dilatation is present. Gallbladder has been removed. Region of the pancreatic head has been replaced with multiple cysts that are similar to previous exam but show mild enlargement. Cyst just posterior to the portal vein is 3.6 cm in transverse diameter, previously 2.7 cm. More anterior pancreatic cystic lesion is 3.2 cm and appears unchanged. The peripancreatic inflammation is minimal and has decreased since the prior exam. No new collections have developed. The spleen, adrenal glands, and kidneys show no sign of acute abnormality. GI/Bowel: The stomach and duodenum are unremarkable. There is no obstruction or inflammation of the small intestine. The appendix has been removed. The colon shows no sign of inflammation or obstruction. There is moderate fecal retention throughout the colon. No free intraperitoneal air or abnormal fluid collection in the peritoneum is present. Pelvis: Urinary bladder is normal in size and contains no stones. Uterus is been removed. There is no abnormal fluid collection in the pelvis or signs of inflammation. Peritoneum/Retroperiton eum: Abdominal aorta is nonaneurysmal. Inferior vena cava filter is in place. There is no retroperitoneal lymph node enlargement or abnormal fluid collection. Bones/Soft Tissues: No acute findings. IMPRESSION: Pancreatic and peripancreatic cysts in the region of the head of the pancreas with mild enlargement of couple cysts since 03/28/2023 but overall decreasing peripancreatic inflammation. No new collection has developed. Hepatomegaly with hepatic steatosis. Interpreted by: Kwame Mao MD Preliminary Report By: Kwame Mao MD Electronically signed By Kwame Mao MD Dictated Date: 04/25/2023 1:20:13 AM Prelim Date: 04/25/2023 1:29:18 AM Sign Date: 04/25/2023 1:29:18 AM Ordering Provider: OPAL REYNOLDS [facility] ([place]) LABORATORYOrdered By: SYSTEM SYSTEM on 04-25-2023 Albumin BCP dye [Mass/Vol] 4.8 G/dL Invalid Interpretation Code 3.5 - 5.0 G/dL AO ADM SS Albumin/Globulin [Mass ratio] 1.2 {ratio} Invalid Interpretation Code 1.1 - 2.5 ratio AO ADM SS ALP [Catalytic activity/Vol] 98 U/L Invalid Interpretation Code 40 - 135 U/L AO ADM SS ALT With P-5'-P [Catalytic activity/Vol] 99 U/L Invalid Interpretation Code 14 - 59 U/L AO ADM SS AST With P-5'-P [Catalytic activity/Vol] 89 U/L Invalid Interpretation Code 10 - 40 U/L AO ADM SS Basophil, Absolute 0.0 103/mcL Invalid Interpretation Code 0.0 - 0.2 10^3/mcL AO Workflow SS Basophils/100 WBC (Bld) 0.4 % Invalid Interpretation Code 0.0 - 2.5 % AO Workflow SS Bilirubin [Mass/Vol] 0.5 mg/dL Invalid Interpretation Code 0.2 - 1.0 mg/dL AO ADM SS Comment on above: Interpretive Data: U se of this assay is not recommended for patients undergoing treatment with eltrombopag due to the potential for falsely elevated results. Calcium [Mass/Vol] 9.9 mg/dL Invalid Interpretation Code 8.4 - 10.2 mg/dL AO ADM SS Chloride [Moles/Vol] 100 mmol/L Invalid Interpretation Code 98 - 107 mmol/L AO ADM SS CO2 [Moles/Vol] 23 mmol/L Invalid Interpretation Code 22 - 29 mmol/L AO ADM SS Creatinine [Mass/Vol] 0.92 mg/dL Invalid Interpretation Code 0.55 - 1.02 mg/dL AO ADM SS Electrolyte Balance 13.0 mEq/L Invalid Interpretation Code 4.0 - 15.0 mEq/L AO ADM SS Eosinophil, Absolute 0.4 103/mcL Invalid Interpretation Code 0.0 - 0.4 10^3/mcL AO Workflow SS Eosinophils/100 WBC (Bld) 2.9 % Invalid Interpretation Code 0.0 - 7.0 % AO Workflow SS Erythrocyte distribution width (RBC) [Ratio] 12.4 % Invalid Interpretation Code 11.5 - 14.5 % AO Workflow SS GFR/1.73 sq M.predicted among blacks MDRD (S/P/Bld) [Vol rate/Area] 79 ml/min/1.73sqm Invalid Interpretation Code AO Chemistry S Comment on above: Interpretive Data: GFR Population mean for , Non- Americans Ages 20-29 = 116 mL/min/1.73 sq.m. Ages 30-39 = 107 mL/min/1.73 sq.m. Ages 40-49 = 99 mL/min/1.73 sq.m. Ages 50-59 = 93 mL/min/1.73 sq.m. Ages 60-69 = 85 mL/min/1.73 sq.m. Ages 70+ = 75 mL/min/1.73 sq.m. Chronic Kidney Disease: Less than 60 mL/min/1.73 square meters End Stage Renal Disease: Less than 15 mL/min/1.73 square meters GFR/1.73 sq M.predicted among non-blacks MDRD (S/P/Bld) [Vol rate/Area] 65 ml/min/1.73sqm Invalid Interpretation Code AO Chemistry S Comment on above: Interpretive Data: GFR Population mean for , Non- Americans Ages 20-29 = 116 mL/min/1.73 sq.m. Ages 30-39 = 107 mL/min/1.73 sq.m. Ages 40-49 = 99 mL/min/1.73 sq.m. Ages 50-59 = 93 mL/min/1.73 sq.m. Ages 60-69 = 85 mL/min/1.73 sq.m. Ages 70+ = 75 mL/min/1.73 sq.m. Chronic Kidney Disease: Less than 60 mL/min/1.73 square meters End Stage Renal Disease: Less than 15 mL/min/1.73 square meters Globulin 4.1 G/dL Invalid Interpretation Code AO ADM SS Glucose [Mass/Vol] 150 mg/dL Invalid Interpretation Code 70 - 105 mg/dL AO ADM SS Hematocrit (Bld) [Volume fraction] 46.7 % Invalid Interpretation Code 37.0 - 47.0 % AO Workflow SS Hemoglobin (Bld) [Mass/Vol] 15.5 G/dL Invalid Interpretation Code 12.0 - 16.0 G/dL AO Workflow SS Lipase [Catalytic activity/Vol] 46 U/L Invalid Interpretation Code 16 - 77 U/L AO ADM SS Lymphocyte, Absolute 3.5 103/mcL Invalid Interpretation Code 0.8 - 3.9 10^3/mcL AO Workflow SS Lymphocytes/100 WBC (Bld) 25.5 % Invalid Interpretation Code 10.0 - 50.0 % AO Workflow SS MCH (RBC) [Entitic mass] 30.6 pg Invalid Interpretation Code 27.0 - 31.2 pg AO Workflow SS MCHC 33.3 G/dL Invalid Interpretation Code 33.0 - 37.0 G/dL AO Workflow SS MCV (RBC) [Entitic vol] 91.9 fL Invalid Interpretation Code 80.0 - 94.0 fL AO Workflow SS Monocyte distribution width Auto (Bld) [Entitic vol] 20.55 1 Invalid Interpretation Code 0.00 - 20.00 AO Workflow SS Comment on above: Result Comment: For adults in ED, MDW>20.0 may be associated with a higher risk of sepsis during the first 12hrs of hospital admission Monocyte, Absolute 0.8 103/mcL Invalid Interpretation Code 0.2 - 1.0 10^3/mcL AO Workflow SS Monocytes/100 WBC (Bld) 6.2 % Invalid Interpretation Code 1.7 - 13.0 % AO Workflow SS Neutrophil, Absolute 9.0 103/mcL Invalid Interpretation Code 2.9 - 6.2 10^3/mcL AO Workflow SS Neutrophils/100 WBC (Bld) 64.8 % Invalid Interpretation Code 37.0 - 80.0 % AO Workflow SS Platelet mean volume (Bld) [Entitic vol] 6.9 fL Invalid Interpretation Code 7.4 - 10.4 fL AO Workflow SS Platelets (Bld) [#/Vol] 471 103/mcL Invalid Interpretation Code 130 - 400 10^3/mcL AO Workflow SS Potassium [Moles/Vol] 4.8 mmol/L Invalid Interpretation Code 3.5 - 5.1 mmol/L AO ADM SS Protein [Mass/Vol] 8.9 G/dL Invalid Interpretation Code 6.4 - 8.2 G/dL AO ADM SS RBC (Bld) [#/Vol] 5.08 106/mcL Invalid Interpretation Code 4.20 - 5.40 10^6/mcL AO Workflow SS Sodium [Moles/Vol] 136 mmol/L Invalid Interpretation Code 136 - 145 mmol/L AO ADM SS Urea nitrogen [Mass/Vol] 22 mg/dL Invalid Interpretation Code 7 - 18 mg/dL AO ADM SS Urea nitrogen/Creatinine [Mass ratio] 24 ratio Invalid Interpretation Code 7 - 27 ratio AO ADM SS WBC (Bld) [#/Vol] 14.0 103/mcL Invalid Interpretation Code 4.6 - 10.8 10^3/mcL AO Workflow SS LABORATORYOrdered By: Sheyla Hernandez on 04-25-2023 Appearance (U) Slightly Cloudy *ABN* (04/25/23 12:41 AM) Invalid Interpretation Code Clear AO Auto Urine SS Bacteria LM.HPF (Urine sed) [#/Area] Trace /HPF Invalid Interpretation Code AO Auto Urine SS Bilirubin Ql (U) Negative (04/25/23 12:41 AM) Invalid Interpretation Code Negative AO Auto Urine SS Color (U) Yellow (04/25/23 12:41 AM) Invalid Interpretation Code AO Auto Urine SS Glucose Test strip (U) [Mass/Vol] Negative Invalid Interpretation Code Negative AO Auto Urine SS Hemoglobin Auto test strip (U) [Mass/Vol] Negative (04/25/23 12:41 AM) Invalid Interpretation Code Negative AO Auto Urine SS Ketones Ql (U) Negative Invalid Interpretation Code Negative AO Auto Urine SS Platelet Estimate Increased (04/25/23 12:41 AM) Invalid Interpretation Code AO Hematology S UA Hyal Cast 0-5 /LPF Invalid Interpretation Code AO Auto Urine SS UA Leuk Est Negative (04/25/23 12:41 AM) Invalid Interpretation Code Negative AO Auto Urine SS UA Nitrite Negative (04/25/23 12:41 AM) Invalid Interpretation Code Negative AO Auto Urine SS UA pH 5.5 (04/25/23 12:41 AM) Invalid Interpretation Code 5.0 - 8.0 AO Auto Urine SS UA Protein Negative Invalid Interpretation Code Negative AO Auto Urine SS UA RBC 0-5 /HPF Invalid Interpretation Code None Seen AO Auto Urine SS UA Spec Grav 1.020 (04/25/23 12:41 AM) Invalid Interpretation Code 1.015-1.025 AO Auto Urine SS UA Specimen Type Clean Catch (04/25/23 12:41 AM) Invalid Interpretation Code AO Auto Urine SS UA Squam Epithelial 5-10 /HPF Invalid Interpretation Code None Seen AO Auto Urine SS UA Urobilinogen 0.2 E.U./dL Invalid Interpretation Code 0.2-1.0 AO Auto Urine SS WBC LM.HPF (Urine sed) [#/Area] 0-5 /HPF Invalid Interpretation Code None Seen AO Auto Urine SS LIPon 04-25-2023 Lipase Level 46 U/L Normal 16-77 [facility] ([place]) Comment on above: Performed By: #### U A, PREGU #### [facility] [address] [place], [place] [address] No Panel Informationon 04-25 Please click on the link to view the study images Normal [facility] Work Phone: UAon 04-25-2023 Color (U) Yellow Normal [facility] ([place]) Comment on above: Performed By: #### U A, PREGU #### [facility] [address] [place], [place] [address] Glucose (U) [Mass/Vol] Negative Normal Negative [facility] ([place] Comment on above: Performed By: #### U A, PREGU #### [facility] [address] [place], [place] [address] Ketones Ql (U) Negative Normal Negative [facility] ([place]) Comment on above: Performed By: #### U A, PREGU #### Sean Davisillon [address] [place], [place] [address] UA Appear Slightly Cloudy Abnormal Clear [facility] ([place]) Comment on above: Performed By: #### U A, PREGU #### Sean Hunters [address] [place], [place] [address] UA Blood Negative Normal Negative [facility] ([place] Comment on above: Performed By: #### U A, PREGU #### Sean Hunters [address] [place], [place] [address] UA Leuk Est Negative Normal Negative [facility] [place] Comment on above: Performed By: #### U A, PREGU #### Sean Hunters [address] [place], [place] [address] UA Nitrite Negative Normal Negative [facility] ([place] Comment on above: Performed By: #### U A, PREGU #### Sean Davis[address] [place], [place] [address] UA pH 5.5 Normal 5.0 - 8.0 [facility] ([place] Comment on above: Performed By: #### U A, PREGU #### Sean Davis[address] [place], [place] [address] UA Protein Negative Normal Negative [facility] ([place] Comment on above: Performed By: #### U A, PREGU #### Sean Hunters [address] [place], [place] [address] UA Spec Grav 1.020 Normal 1.015-1.025 [facility] ([place] Comment on above: Performed By: #### U A, PREGU #### Sean Hunters [address] [place], [place] [address] UA Specimen Type Clean Catch Normal [facility] ([place] Comment on above: Performed By: #### U A, PREGU #### Sean Hunters [address] [place], [place] [address] UA Urobilinogen 0.2 E.U./dL Normal 0.2-1.0 [facility] ([place] Comment on above: Performed By: #### U A, PREGU #### Seanoz Loaizan [address] [place], [place] [address] Urobilinogen (U) [Mass/Vol] Negative Normal Negative [facility] ([place] Comment on above: Performed By: #### U A, PREGU #### Seanoz Loaizan [address] [place], [place] [address] HBCABon 04-05-2023 Hep B Core Ab Negative Normal Negative [facility] ([place] Comment on above: Result Comment: No e vidence of current or past infection with Hepatitis B virus. Should recent infection be suspected, repeat testing may be considered 3-4 weeks after this draw. Performed By: [facility] [address] [place] [address] [employer] Cutting [employer] Operator: Miguel Blanco III#: [id number] Performed By: #### C K #### [address] [address] ANAon 04-04-2023 Nuclear Ab IF (S) [Titer] 40 {titer} Normal Neg 40 [facility] ([place]) Comment on above: Result Comment: FERNANDA Screen and Titer methodology is an immunofluorescent technique utilizing Hep2 Substrate. Performed By: #### C K #### [address] [address] MITOon 04-04-2023 Mitochondrial Ab Neg 20 Normal Neg 20 [facility] ([place] Comment on above: Result Comment: Frank chondrial Ab Screen and Titer methodology is an immunofluorescent technique utilizing MSK Substrate. Performed By: #### C K #### [address] [address] SMUSCon 04-04-2023 Smooth Muscle Ab Neg 20 Normal Neg 20 [facility] ([place] Comment on above: Result Comment: Smoo th Muscle Ab Screen and Titer methodology is an immunofluorescent technique utilizing MSK Substrate. Performed By: #### C K #### [address] [address] AATon 04-02-2023 Alpha 1 Antitrypsin 204 mg/dL High 78-200 [facility] ([place]) Comment on above: Result Comment: No te - New Reference Range in effect 20 Performed By: #### C K #### [address] [address] CERULon 04-02-2023 Ceruloplasmin 37.0 mg/dL Normal 22.0-58.0 [facility] ([place] Comment on above: Performed By: #### C K #### [address] [address] HEPACon 04-02-2023 Hep A IgM Ab Non-Reactive Normal Non-Reactive [facility] ([place] Comment on above: Performed By: #### C K #### [address] [address] Hep A IgM Ab Int Normal [facility] ([place] Comment on above: Result Comment: No s erological evidence of a current Hepatitis A infection. See Interp Performed By: #### C K #### [address] [address] Hep B Core IgM Ab Non-Reactive Normal Non-Reactive [facility] ([place]) Comment on above: Performed By: #### C K #### [address] [address] Hep B Core IgM Ab Int Normal [facility] ([place] Comment on above: Result Comment: Samp les with a value < 0.80 Index are considered nonreactive (negative) for IgM antibodies to hepatitis B core antigen. See Interp Performed By: #### C K #### [address] [address] Hep B Surf Ag Non-Reactive Normal Non-Reactive [facility] [facility] ([place]) Comment on above: Performed By: #### C K #### [address] [address] Hep C Ab Non-Reactive Normal Non-Reactive [facility] ([place]) Comment on above: Performed By: #### C K #### [address] [address] Hep C Ab Int Normal [facility] ([place]) Comment on above: Result Comment: Nonr eactive: Samples with a value < 0.80 are considered nonreactive (negative) for antibodies to HCV. A negative test result does not exclude the possibility of exposure to or infection with HCV. HCV antibodies may be undetectable in some stages of the infection and in some clinical conditions. See Interp Performed By: #### C K #### [address] [address] IMMUNon 04-02-2023 IgA [Mass/Vol] 153 mg/dL Normal 40-350 [facility] ([place]) Comment on above: Result Comment: No te - New Reference Range in effect 20 Performed By: #### C K #### [address] [address] IgG [Mass/Vol] 781 mg/dL Normal 650-1600 [facility] ([place]) Comment on above: Result Comment: No te - New Reference Range in effect 20 Performed By: #### C K #### [address] [address] IgM [Mass/Vol] 72 mg/dL Normal 50-300 [facility] ([place]) Comment on above: Result Comment: No te - New Reference Range in effect 20 Performed By: #### C K #### [address] [address] LABORATORYOrdered By: SYSTEM SYSTEM on 04-02-2023 Alpha 1 antitrypsin [Mass/Vol] 204 mg/dL Invalid Interpretation Code 78 - 200 mg/dL AH ADM SS Ceruloplasmin [Mass/Vol] 37.0 mg/dL Invalid Interpretation Code 22.0 - 58.0 mg/dL AH ADM SS IgA [Mass/Vol] 153 mg/dL Invalid Interpretation Code 40 - 350 mg/dL AH ADM SS IgG [Mass/Vol] 781 mg/dL Invalid Interpretation Code 650 - 1600 mg/dL AH ADM SS IgM [Mass/Vol] 72 mg/dL Invalid Interpretation Code 50 - 300 mg/dL AH ADM SS Lipase [Catalytic activity/Vol] 71 U/L Invalid Interpretation Code 12 - 53 U/L AH ADM SS LABORATORYOrdered By: Lisseth Garcia on 04-02-2023 HAV IgM IA Ql Non-Reactive (04/02/23 11:32 AM) Invalid Interpretation Code Non-Reactive AH ADM SS HAV IgM IA Ql No serological evide nce of a current Hepatitis A infection. Invalid Interpretation Code AH Chemistry S HBV core IgM IA Ql Non-Reactive (04/02/23 11:32 AM) Invalid Interpretation Code Non-Reactive AH ADM SS HBV core IgM IA Ql Samples with a value < 0.80 Index are considered nonreactive (negative) for IgM antibodies to hepatitis B core antigen. Invalid Interpretation Code AH Chemistry S HBV surface Ag IA Ql Non-Reactive (04/02/23 11:32 AM) Invalid Interpretation Code Non-Reactive AH ADM SS HCV Ab IA Ql Non-Reactive (04/02/23 11:32 AM) Invalid Interpretation Code Non-Reactive AH ADM SS HCV Ab IA Ql Nonreactive: Samples with a value < 0.80 are considered nonreactive (negative) for antibodies to HCV.A negative test result does not exclude the possibility of exposure to or infection with HCV. HCV antibodies may be undetectable in some stages of the infection and in some clinical conditions. Invalid Interpretation Code Chemistry S LIPon 04-02-2023 Lipase Level 71 U/L High 12-53 [facility] ([place]) Comment on above: Result Comment: No te - New Reference Range in effect 20 Performed By: #### U A, PREGU #### [facility] [address] [place], [place] [address] .Auto Diffon 04-01-2023 Basophil, Absolute 0.1 10 3/mcL Normal 0.0-0.2 [facility]) Comment on above: Performed By: #### A DIFF, ANEU, CMP, MG, GFR, LD, CRP, CBC, ESR #### [address] [address] Basophils/100 WBC (Bld) 1.2 % Normal 0.0-2.5 [facility] ([place]) Comment on above: Performed By: #### A DIFF, ANEU, CMP, MG, GFR, LD, CRP, CBC, ESR #### [address] [address] Eosinophil, Absolute 0.3 10 3/mcL Normal 0.0-0.4 [facility] ([place]) Comment on above: Performed By: #### A DIFF, ANEU, CMP, MG, GFR, LD, CRP, CBC, ESR #### [address] [address] Eosinophils/100 WBC (Bld) 6.3 % Normal 0.0-7.0 [facility] ([place]) Comment on above: Performed By: #### A DIFF, ANEU, CMP, MG, GFR, LD, CRP, CBC, ESR #### [address] [address] Lymphocyte, Absolute 1.4 10 3/mcL Normal 0.8-3.9 [facility] ([place]) Comment on above: Performed By: #### A DIFF, ANEU, CMP, MG, GFR, LD, CRP, CBC, ESR #### [address] [address] Lymphocytes/100 WBC (Bld) 29.1 % Normal 10.0-50.0 [facility] ([place] Comment on above: Performed By: #### A DIFF, ANEU, CMP, MG, GFR, LD, CRP, CBC, ESR #### [address] [address] Monocyte, Absolute 0.3 10 3/mcL Normal 0.2-1.0 [facility] ([place]) Comment on above: Performed By: #### A DIFF, ANEU, CMP, MG, GFR, LD, CRP, CBC, ESR #### [address] [address] Monocytes/100 WBC (Bld) 6.5 % Normal 1.7-13.0 [facility] ([place]) Comment on above: Performed By: #### A DIFF, ANEU, CMP, MG, GFR, LD, CRP, CBC, ESR #### [address] [address] Neutrophils/100 WBC (Bld) 56.9 % Normal 37.0-80.0 [facility] ([place]) Comment on above: Performed By: #### A DIFF, ANEU, CMP, MG, GFR, LD, CRP, CBC, ESR #### [address] [address] .GFRon 04-01-2023 GFR 116 ml/min/1.73sqm Normal [facility] ([place]) Comment on above: Result Comment: GFR Population mean for , Non- Americans Ages 20-29 = 116 mL/min/1.73 sq.m. Ages 30-39 = 107 mL/min/1.73 sq.m. Ages 40-49 = 99 mL/min/1.73 sq.m. Ages 50-59 = 93 mL/min/1.73 sq.m. Ages 60-69 = 85 mL/min/1.73 sq.m. Ages 70+ = 75 mL/min/1.73 sq.m. Chronic Kidney Disease: Less than 60 mL/min/1.73 square meters End Stage Renal Disease: Less than 15 mL/min/1.73 square meters Performed By: #### A DIFF, ANEU, CMP, MG, GFR, LD, CRP, CBC, ESR #### [address] [address] GFR Non- 96 ml/min/1.73sqm Normal [facility] ([place]) Comment on above: Result Comment: GFR Population mean for , Non- Americans Ages 20-29 = 116 mL/min/1.73 sq.m. Ages 30-39 = 107 mL/min/1.73 sq.m. Ages 40-49 = 99 mL/min/1.73 sq.m. Ages 50-59 = 93 mL/min/1.73 sq.m. Ages 60-69 = 85 mL/min/1.73 sq.m. Ages 70+ = 75 mL/min/1.73 sq.m. Chronic Kidney Disease: Less than 60 mL/min/1.73 square meters End Stage Renal Disease: Less than 15 mL/min/1.73 square meters Performed By: #### A DIFF, ANEU, CMP, MG, GFR, LD, CRP, CBC, ESR #### [place] [address] .NEUABSon 04-01-2023 Neutrophil, Absolute 2.7 10 3/mcL Low 2.9-6.2 [facility] ([place]) Comment on above: Performed By: #### A DIFF, ANEU, CMP, MG, GFR, LD, CRP, CBC, ESR #### [place] [address] CBCon 04-01-2023 Erythrocyte distribution width (RBC) [Ratio] 13.7 % Normal 11.5-14.5 [facility] ([place]) Comment on above: Performed By: #### A DIFF, ANEU, CMP, MG, GFR, LD, CRP, CBC, ESR #### [place] [address] Hematocrit (Bld) [Volume fraction] 32.8 % Low 37.0-47.0 [facility] ([place] Comment on above: Performed By: #### A DIFF, ANEU, CMP, MG, GFR, LD, CRP, CBC, ESR #### [place] [address] Hgb 11.1 G/dL Low 12.0-16.0 [facility] ([place] Comment on above: Performed By: #### A DIFF, ANEU, CMP, MG, GFR, LD, CRP, CBC, ESR #### [place] [address] MCH (RBC) [Entitic mass] 31.6 pg High 27.0-31.2 [facility] ([place]) Comment on above: Performed By: #### A DIFF, ANEU, CMP, MG, GFR, LD, CRP, CBC, ESR #### [place] [address] MCHC 33.7 G/dL Normal 33.0-37.0 [facility] ([place]) Comment on above: Performed By: #### A DIFF, ANEU, CMP, MG, GFR, LD, CRP, CBC, ESR #### [address] [address] MCV (RBC) [Entitic vol] 93.7 fL Normal 80.0-94.0 [facility] ([place] Comment on above: Performed By: #### A DIFF, ANEU, CMP, MG, GFR, LD, CRP, CBC, ESR #### [address] [address] Platelet 265 10 3/mcL Normal 130-400 [facility] ([place]) Comment on above: Performed By: #### A DIFF, ANEU, CMP, MG, GFR, LD, CRP, CBC, ESR #### [address] [address] Platelet mean volume (Bld) [Entitic vol] 7.4 fL Normal 7.4-10.4 [facility] ([place]) Comment on above: Performed By: #### A DIFF, ANEU, CMP, MG, GFR, LD, CRP, CBC, ESR #### [address] [address] RBC 3.50 10 6/mcL Low 4.20-5.40 [facility] ([place]) Comment on above: Performed By: #### A DIFF, ANEU, CMP, MG, GFR, LD, CRP, CBC, ESR #### [address] [address] WBC 4.7 10 3/mcL Normal 4.6-10.8 [facility] ([place]) Comment on above: Performed By: #### A DIFF, ANEU, CMP, MG, GFR, LD, CRP, CBC, ESR #### [address] [address] CMPon 04-01-2023 Albumin Level 3.2 G/dL Low 3.5-5.0 [facility] ([place] Comment on above: Performed By: #### A DIFF, ANEU, CMP, MG, GFR, LD, CRP, CBC, ESR #### [address] [address] Albumin/Globulin [Mass ratio] 1.2 {ratio} Normal 1.1-2.5 [facility] ([place] Comment on above: Performed By: #### A DIFF, ANEU, CMP, MG, GFR, LD, CRP, CBC, ESR #### [address] [address] ALP [Catalytic activity/Vol] 111 U/L Normal 40-135 [facility] ([place]) Comment on above: Performed By: #### A DIFF, ANEU, CMP, MG, GFR, LD, CRP, CBC, ESR #### [address] [address] ALT [Catalytic activity/Vol] 273 U/L High 14-59 [facility] ([place] Comment on above: Performed By: #### A DIFF, ANEU, CMP, MG, GFR, LD, CRP, CBC, ESR #### [address] [address] AST [Catalytic activity/Vol] 118 U/L High 10-40 [facility] ([place] Comment on above: Performed By: #### A DIFF, ANEU, CMP, MG, GFR, LD, CRP, CBC, ESR #### [address] [address] Bili Total 0.5 mg/dL Normal 0.2-1.0 [facility] ([place]) Comment on above: Result Comment: Use of this assay is not recommended for patients undergoing treatment with eltrombopag due to the potential for falsely elevated results. Performed By: #### A DIFF, ANEU, CMP, MG, GFR, LD, CRP, CBC, ESR #### [address] [address] BUN/Creatinine Ratio 3 ratio Low 7-27 [facility] ([place]) Comment on above: Performed By: #### A DIFF, ANEU, CMP, MG, GFR, LD, CRP, CBC, ESR #### [address] [address] Calcium [Mass/Vol] 8.6 mg/dL Normal 8.4-10.2 [facility] ([place]) Comment on above: Performed By: #### A DIFF, ANEU, CMP, MG, GFR, LD, CRP, CBC, ESR #### [address] [address] Chloride [Moles/Vol] 107 mmol/L Normal 98-107 [facility] ([place] Comment on above: Performed By: #### A DIFF, ANEU, CMP, MG, GFR, LD, CRP, CBC, ESR #### [address] [address] CO2 [Moles/Vol] 24 mmol/L Normal 22-29 [facility] ([place]) Comment on above: Performed By: #### A DIFF, ANEU, CMP, MG, GFR, LD, CRP, CBC, ESR #### [address] [address] Creatinine [Mass/Vol] 0.66 mg/dL Normal 0.55-1.02 [facility] ([place]) Comment on above: Performed By: #### A DIFF, ANEU, CMP, MG, GFR, LD, CRP, CBC, ESR #### [address] [address] Electrolyte Balance 12.0 mEq/L Normal 4.0-15.0 [facility] ([place]) Comment on above: Performed By: #### A DIFF, ANEU, CMP, MG, GFR, LD, CRP, CBC, ESR #### [address] [address] Globulin 2.6 G/dL Normal [facility] ([place]) Comment on above: Performed By: #### A DIFF, ANEU, CMP, MG, GFR, LD, CRP, CBC, ESR #### [address] [address] Glucose [Mass/Vol] 122 mg/dL High 70-105 [facility] ([place]) Comment on above: Performed By: #### A DIFF, ANEU, CMP, MG, GFR, LD, CRP, CBC, ESR #### [address] [address] Potassium [Moles/Vol] 3.5 mmol/L Normal 3.5-5.1 [facility] ([place] Comment on above: Performed By: #### A DIFF, ANEU, CMP, MG, GFR, LD, CRP, CBC, ESR #### [address] [address] Sodium [Moles/Vol] 143 mmol/L Normal 136-145 [facility] ([place]) Comment on above: Performed By: #### A DIFF, ANEU, CMP, MG, GFR, LD, CRP, CBC, ESR #### [address] [address] Total Protein 5.8 G/dL Low 6.4-8.2 [facility] ([place] Comment on above: Performed By: #### A DIFF, ANEU, CMP, MG, GFR, LD, CRP, CBC, ESR #### [address] [address] Urea nitrogen [Mass/Vol] 2 mg/dL Low 7-18 [facility] ([place] Comment on above: Performed By: #### A DIFF, ANEU, CMP, MG, GFR, LD, CRP, CBC, ESR #### [address] [address] MGon 04-01-2023 Magnesium [Mass/Vol] 1.9 mg/dL Normal 1.8-2.4 [facility] ([place]) Comment on above: Performed By: #### A DIFF, ANEU, CMP, MG, GFR, LD, CRP, CBC, ESR #### [address] [address] .Auto Diffon 03-31-2023 Basophil, Absolute 0.0 10 3/mcL Normal 0.0-0.2 [facility] ([place]) Comment on above: Performed By: #### A DIFF, ANEU, CMP, MG, GFR, LD, CRP, CBC, ESR #### [address] [address] Basophils/100 WBC (Bld) 1.0 % Normal 0.0-2.5 [facility] ([place] Comment on above: Performed By: #### A DIFF, ANEU, CMP, MG, GFR, LD, CRP, CBC, ESR #### [address] [address] Eosinophil, Absolute 0.2 10 3/mcL Normal 0.0-0.4 [facility] ([place]) Comment on above: Performed By: #### A DIFF, ANEU, CMP, MG, GFR, LD, CRP, CBC, ESR #### [address] [address] Eosinophils/100 WBC (Bld) 7.0 % Normal 0.0-7.0 [facility] ([place] Comment on above: Performed By: #### A DIFF, ANEU, CMP, MG, GFR, LD, CRP, CBC, ESR #### [address] [address] Lymphocyte, Absolute 1.5 10 3/mcL Normal 0.8-3.9 [facility] ([place]) Comment on above: Performed By: #### A DIFF, ANEU, CMP, MG, GFR, LD, CRP, CBC, ESR #### [address] [address] Lymphocytes/100 WBC (Bld) 42.0 % Normal 10.0-50.0 [facility] ([place] Comment on above: Performed By: #### A DIFF, ANEU, CMP, MG, GFR, LD, CRP, CBC, ESR #### [address] [address] Monocyte, Absolute 0.3 10 3/mcL Normal 0.2-1.0 [facility] ([place] Comment on above: Performed By: #### A DIFF, ANEU, CMP, MG, GFR, LD, CRP, CBC, ESR #### [address] [address] Monocytes/100 WBC (Bld) 7.7 % Normal 1.7-13.0 [facility] ([place] Comment on above: Performed By: #### A DIFF, ANEU, CMP, MG, GFR, LD, CRP, CBC, ESR #### [address] [address] Neutrophils/100 WBC (Bld) 42.3 % Normal 37.0-80.0 [facility] ([place] Comment on above: Performed By: #### A DIFF, ANEU, CMP, MG, GFR, LD, CRP, CBC, ESR #### [address] [address] .GFRon 03-31-2023 GFR Non- 92 ml/min/1.73sqm Normal [facility] ([place]) Comment on above: Result Comment: GFR Population mean for , Non- Americans Ages 20-29 = 116 mL/min/1.73 sq.m. Ages 30-39 = 107 mL/min/1.73 sq.m. Ages 40-49 = 99 mL/min/1.73 sq.m. Ages 50-59 = 93 mL/min/1.73 sq.m. Ages 60-69 = 85 mL/min/1.73 sq.m. Ages 70+ = 75 mL/min/1.73 sq.m. Chronic Kidney Disease: Less than 60 mL/min/1.73 square meters End Stage Renal Disease: Less than 15 mL/min/1.73 square meters Performed By: #### A DIFF, ANEU, CMP, MG, GFR, LD, CRP, CBC, ESR #### [address] [address] GFR 112 ml/min/1.73sqm Normal [facility] ([place] Comment on above: Result Comment: GFR Population mean for , Non- Americans Ages 20-29 = 116 mL/min/1.73 sq.m. Ages 30-39 = 107 mL/min/1.73 sq.m. Ages 40-49 = 99 mL/min/1.73 sq.m. Ages 50-59 = 93 mL/min/1.73 sq.m. Ages 60-69 = 85 mL/min/1.73 sq.m. Ages 70+ = 75 mL/min/1.73 sq.m. Chronic Kidney Disease: Less than 60 mL/min/1.73 square meters End Stage Renal Disease: Less than 15 mL/min/1.73 square meters Performed By: #### A DIFF, ANEU, CMP, MG, GFR, LD, CRP, CBC, ESR #### [place] [address] .NEUABSon 03-31-2023 Neutrophil, Absolute 1.5 10 3/mcL Low 2.9-6.2 [facility] ([place]) Comment on above: Performed By: #### A DIFF, ANEU, CMP, MG, GFR, LD, CRP, CBC, ESR #### [place] [address] CBCon 03-31-2023 Erythrocyte distribution width (RBC) [Ratio] 13.8 % Normal 11.5-14.5 [facility] ([place] Comment on above: Performed By: #### A DIFF, ANEU, CMP, MG, GFR, LD, CRP, CBC, ESR #### [place] [address] Hematocrit (Bld) [Volume fraction] 33.2 % Low 37.0-47.0 [facility] ([place] Comment on above: Performed By: #### A DIFF, ANEU, CMP, MG, GFR, LD, CRP, CBC, ESR #### [place] [address] Hgb 11.1 G/dL Low 12.0-16.0 [facility] ([place] Comment on above: Performed By: #### A DIFF, ANEU, CMP, MG, GFR, LD, CRP, CBC, ESR #### [place] [address] MCH (RBC) [Entitic mass] 31.6 pg High 27.0-31.2 [facility] ([place] Comment on above: Performed By: #### A DIFF, ANEU, CMP, MG, GFR, LD, CRP, CBC, ESR #### [place] [address] MCHC 33.5 G/dL Normal 33.0-37.0 [facility] ([place] Comment on above: Performed By: #### A DIFF, ANEU, CMP, MG, GFR, LD, CRP, CBC, ESR #### [address] [address] MCV (RBC) [Entitic vol] 94.3 fL High 80.0-94.0 [facility] ([place] Comment on above: Performed By: #### A DIFF, ANEU, CMP, MG, GFR, LD, CRP, CBC, ESR #### [address] [address] Platelet 268 10 3/mcL Normal 130-400 [facility] ([place]) Comment on above: Performed By: #### A DIFF, ANEU, CMP, MG, GFR, LD, CRP, CBC, ESR #### [address] [address] Platelet mean volume (Bld) [Entitic vol] 6.6 fL Low 7.4-10.4 [facility] ([place]) Comment on above: Performed By: #### A DIFF, ANEU, CMP, MG, GFR, LD, CRP, CBC, ESR #### [address] [address] RBC 3.52 10 6/mcL Low 4.20-5.40 [facility] ([place] Comment on above: Performed By: #### A DIFF, ANEU, CMP, MG, GFR, LD, CRP, CBC, ESR #### [address] [address] WBC 3.5 10 3/mcL Low 4.6-10.8 [facility] ([place] Comment on above: Performed By: #### A DIFF, ANEU, CMP, MG, GFR, LD, CRP, CBC, ESR #### [address] [address] CMPon 03-31-2023 Albumin Level 3.1 G/dL Low 3.5-5.0 [facility] ([place] Comment on above: Performed By: #### A DIFF, ANEU, CMP, MG, GFR, LD, CRP, CBC, ESR #### [address] [address] Albumin/Globulin [Mass ratio] 1.2 {ratio} Normal 1.1-2.5 [facility] ([place] Comment on above: Performed By: #### A DIFF, ANEU, CMP, MG, GFR, LD, CRP, CBC, ESR #### [address] [address] ALP [Catalytic activity/Vol] 112 U/L Normal 40-135 [facility] ([place] Comment on above: Performed By: #### A DIFF, ANEU, CMP, MG, GFR, LD, CRP, CBC, ESR #### [address] [address] ALT [Catalytic activity/Vol] 337 U/L High 14-59 [facility] ([place] Comment on above: Performed By: #### A DIFF, ANEU, CMP, MG, GFR, LD, CRP, CBC, ESR #### [address] [address] AST [Catalytic activity/Vol] 244 U/L High 10-40 [facility] ([place] Comment on above: Performed By: #### A DIFF, ANEU, CMP, MG, GFR, LD, CRP, CBC, ESR #### [address] [address] Bili Total 0.6 mg/dL Normal 0.2-1.0 [facility] ([place] Comment on above: Result Comment: Use of this assay is not recommended for patients undergoing treatment with eltrombopag due to the potential for falsely elevated results. Performed By: #### A DIFF, ANEU, CMP, MG, GFR, LD, CRP, CBC, ESR #### [address] [address] BUN/Creatinine Ratio 4 ratio Low 7-27 [facility] ([place]) Comment on above: Performed By: #### A DIFF, ANEU, CMP, MG, GFR, LD, CRP, CBC, ESR #### [address] [address] Calcium [Mass/Vol] 8.6 mg/dL Normal 8.4-10.2 [facility] ([place]) Comment on above: Performed By: #### A DIFF, ANEU, CMP, MG, GFR, LD, CRP, CBC, ESR #### [address] [address] Chloride [Moles/Vol] 107 mmol/L Normal 98-107 [facility] ([place] Comment on above: Performed By: #### A DIFF, ANEU, CMP, MG, GFR, LD, CRP, CBC, ESR #### [address] [address] CO2 [Moles/Vol] 24 mmol/L Normal 22-29 [facility] ([place]) Comment on above: Performed By: #### A DIFF, ANEU, CMP, MG, GFR, LD, CRP, CBC, ESR #### [address] [address] Creatinine [Mass/Vol] 0.68 mg/dL Normal 0.55-1.02 [facility] ([place]) Comment on above: Performed By: #### A DIFF, ANEU, CMP, MG, GFR, LD, CRP, CBC, ESR #### [address] [address] Electrolyte Balance 11.0 mEq/L Normal 4.0-15.0 [facility] ([place]) Comment on above: Performed By: #### A DIFF, ANEU, CMP, MG, GFR, LD, CRP, CBC, ESR #### [address] [address] Globulin 2.5 G/dL Normal [facility] ([place] Comment on above: Performed By: #### A DIFF, ANEU, CMP, MG, GFR, LD, CRP, CBC, ESR #### [address] [address] Glucose [Mass/Vol] 110 mg/dL High 70-105 [facility] ([place] Comment on above: Performed By: #### A DIFF, ANEU, CMP, MG, GFR, LD, CRP, CBC, ESR #### [address] [address] Potassium [Moles/Vol] 3.8 mmol/L Normal 3.5-5.1 [facility] ([place] Comment on above: Performed By: #### A DIFF, ANEU, CMP, MG, GFR, LD, CRP, CBC, ESR #### [address] [address] Sodium [Moles/Vol] 142 mmol/L Normal 136-145 [facility] ([place]) Comment on above: Performed By: #### A DIFF, ANEU, CMP, MG, GFR, LD, CRP, CBC, ESR #### [address] [address] Total Protein 5.6 G/dL Low 6.4-8.2 [facility] ([place] Comment on above: Performed By: #### A DIFF, ANEU, CMP, MG, GFR, LD, CRP, CBC, ESR #### [address] [address] Urea nitrogen [Mass/Vol] 3 mg/dL Low 7-18 [facility] ([place] Comment on above: Performed By: #### A DIFF, ANEU, CMP, MG, GFR, LD, CRP, CBC, ESR #### [address] [address] MGon 03-31-2023 Magnesium [Mass/Vol] 1.9 mg/dL Normal 1.8-2.4 [facility]) Comment on above: Performed By: #### A DIFF, ANEU, CMP, MG, GFR, LD, CRP, CBC, ESR #### [address] [address] .Auto Diffon 03-30-2023 Basophil, Absolute 0.1 10 3/mcL Normal 0.0-0.2 [facility] ([place] Comment on above: Performed By: #### A DIFF, ANEU, CMP, MG, GFR, LD, CRP, CBC, ESR #### [address] [address] Basophils/100 WBC (Bld) 1.5 % Normal 0.0-2.5 [facility] ([place] Comment on above: Performed By: #### A DIFF, ANEU, CMP, MG, GFR, LD, CRP, CBC, ESR #### [address] [address] Eosinophil, Absolute 0.2 10 3/mcL Normal 0.0-0.4 [facility] ([place]) Comment on above: Performed By: #### A DIFF, ANEU, CMP, MG, GFR, LD, CRP, CBC, ESR #### [address] [address] Eosinophils/100 WBC (Bld) 5.4 % Normal 0.0-7.0 [facility] ([place] Comment on above: Performed By: #### A DIFF, ANEU, CMP, MG, GFR, LD, CRP, CBC, ESR #### [address] [address] Lymphocyte, Absolute 1.4 10 3/mcL Normal 0.8-3.9 [facility] ([place] Comment on above: Performed By: #### A DIFF, ANEU, CMP, MG, GFR, LD, CRP, CBC, ESR #### [address] [address] Lymphocytes/100 WBC (Bld) 35.7 % Normal 10.0-50.0 [facility] ([place] Comment on above: Performed By: #### A DIFF, ANEU, CMP, MG, GFR, LD, CRP, CBC, ESR #### [address] [address] Monocyte, Absolute 0.4 10 3/mcL Normal 0.2-1.0 [facility] ([place] Comment on above: Performed By: #### A DIFF, ANEU, CMP, MG, GFR, LD, CRP, CBC, ESR #### [address] [address] Monocytes/100 WBC (Bld) 9.5 % Normal 1.7-13.0 [facility] ([place] Comment on above: Performed By: #### A DIFF, ANEU, CMP, MG, GFR, LD, CRP, CBC, ESR #### [address] [address] Neutrophils/100 WBC (Bld) 47.9 % Normal 37.0-80.0 [facility] ([place] Comment on above: Performed By: #### A DIFF, ANEU, CMP, MG, GFR, LD, CRP, CBC, ESR #### [address] [address] .GFRon 03-30-2023 GFR 106 ml/min/1.73sqm Normal [facility] [facility] [place] Comment on above: Result Comment: GFR Population mean for , Non- Americans Ages 20-29 = 116 mL/min/1.73 sq.m. Ages 30-39 = 107 mL/min/1.73 sq.m. Ages 40-49 = 99 mL/min/1.73 sq.m. Ages 50-59 = 93 mL/min/1.73 sq.m. Ages 60-69 = 85 mL/min/1.73 sq.m. Ages 70+ = 75 mL/min/1.73 sq.m. Chronic Kidney Disease: Less than 60 mL/min/1.73 square meters End Stage Renal Disease: Less than 15 mL/min/1.73 square meters Performed By: #### A DIFF, ANEU, CMP, MG, GFR, LD, CRP, CBC, ESR #### [address] [address] GFR Non- 88 ml/min/1.73sqm Normal [facility] ([place]) Comment on above: Result Comment: GFR Population mean for , Non- Americans Ages 20-29 = 116 mL/min/1.73 sq.m. Ages 30-39 = 107 mL/min/1.73 sq.m. Ages 40-49 = 99 mL/min/1.73 sq.m. Ages 50-59 = 93 mL/min/1.73 sq.m. Ages 60-69 = 85 mL/min/1.73 sq.m. Ages 70+ = 75 mL/min/1.73 sq.m. Chronic Kidney Disease: Less than 60 mL/min/1.73 square meters End Stage Renal Disease: Less than 15 mL/min/1.73 square meters Performed By: #### A DIFF, ANEU, CMP, MG, GFR, LD, CRP, CBC, ESR #### [address] [address] .NEUABSon 03-30-2023 Neutrophil, Absolute 1.9 10 3/mcL Low 2.9-6.2 [facility] ([place]) Comment on above: Performed By: #### A DIFF, ANEU, CMP, MG, GFR, LD, CRP, CBC, ESR #### [address] [address] A1Con 03-30-2023 HbA1c (Bld) [Mass fraction] 5.9 % Normal 4.3-6.4 [facility] ([place] Comment on above: Performed By: #### A DIFF, ANEU, CMP, MG, GFR, LD, CRP, CBC, ESR #### [address] [address] CBCon 03-30-2023 Erythrocyte distribution width (RBC) [Ratio] 13.5 % Normal 11.5-14.5 [facility] ([place] Comment on above: Performed By: #### A DIFF, ANEU, CMP, MG, GFR, LD, CRP, CBC, ESR #### [address] [address] Hematocrit (Bld) [Volume fraction] 34.7 % Low 37.0-47.0 [facility] ([place] Comment on above: Performed By: #### A DIFF, ANEU, CMP, MG, GFR, LD, CRP, CBC, ESR #### [address] [address] Hgb 11.6 G/dL Low 12.0-16.0 [facility] ([place] Comment on above: Performed By: #### A DIFF, ANEU, CMP, MG, GFR, LD, CRP, CBC, ESR #### [place] [id number] MCH (RBC) [Entitic mass] 31.3 pg High 27.0-31.2 [facility] ([place] Comment on above: Performed By: #### A DIFF, ANEU, CMP, MG, GFR, LD, CRP, CBC, ESR #### [address] [address] MCHC 33.3 G/dL Normal 33.0-37.0 [facility] ([place] Comment on above: Performed By: #### A DIFF, ANEU, CMP, MG, GFR, LD, CRP, CBC, ESR #### [address] [address] MCV (RBC) [Entitic vol] 94.0 fL Normal 80.0-94.0 [facility] ([place] Comment on above: Performed By: #### A DIFF, ANEU, CMP, MG, GFR, LD, CRP, CBC, ESR #### [address] [address] Platelet 281 10 3/mcL Normal 130-400 [facility] ([place]) Comment on above: Performed By: #### A DIFF, ANEU, CMP, MG, GFR, LD, CRP, CBC, ESR #### [address] [address] Platelet mean volume (Bld) [Entitic vol] 6.7 fL Low 7.4-10.4 [facility] ([place] Comment on above: Performed By: #### A DIFF, ANEU, CMP, MG, GFR, LD, CRP, CBC, ESR #### [address] [address] RBC 3.69 10 6/mcL Low 4.20-5.40 [facility] ([place] Comment on above: Performed By: #### A DIFF, ANEU, CMP, MG, GFR, LD, CRP, CBC, ESR #### [address] [address] WBC 4.0 10 3/mcL Low 4.6-10.8 [facility] ([place] Comment on above: Performed By: #### A DIFF, ANEU, CMP, MG, GFR, LD, CRP, CBC, ESR #### [address] [address] CMPon 03-30-2023 Albumin Level 3.3 G/dL Low 3.5-5.0 [facility] [place] Comment on above: Performed By: #### A DIFF, ANEU, CMP, MG, GFR, LD, CRP, CBC, ESR #### [address] [address] Albumin/Globulin [Mass ratio] 1.3 {ratio} Normal 1.1-2.5 [facility] ([place] Comment on above: Performed By: #### A DIFF, ANEU, CMP, MG, GFR, LD, CRP, CBC, ESR #### [address] [address] ALP [Catalytic activity/Vol] 100 U/L Normal 40-135 [facility] ([place] Comment on above: Performed By: #### A DIFF, ANEU, CMP, MG, GFR, LD, CRP, CBC, ESR #### [address] [address] ALT [Catalytic activity/Vol] 270 U/L High 14-59 [facility] ([place] Comment on above: Performed By: #### A DIFF, ANEU, CMP, MG, GFR, LD, CRP, CBC, ESR #### [address] [address] AST [Catalytic activity/Vol] 249 U/L High 10-40 [facility] ([place] Comment on above: Performed By: #### A DIFF, ANEU, CMP, MG, GFR, LD, CRP, CBC, ESR #### [address] [address] Bili Total 0.5 mg/dL Normal 0.2-1.0 [facility] ([place] Comment on above: Result Comment: Use of this assay is not recommended for patients undergoing treatment with eltrombopag due to the potential for falsely elevated results. Performed By: #### A DIFF, ANEU, CMP, MG, GFR, LD, CRP, CBC, ESR #### [address] [address] BUN/Creatinine Ratio 8 ratio Normal 7-27 [facility] ([place] Comment on above: Performed By: #### A DIFF, ANEU, CMP, MG, GFR, LD, CRP, CBC, ESR #### [address] [address] Calcium [Mass/Vol] 9.1 mg/dL Normal 8.4-10.2 [facility] ([place] Comment on above: Performed By: #### A DIFF, ANEU, CMP, MG, GFR, LD, CRP, CBC, ESR #### [place] [address] Chloride [Moles/Vol] 105 mmol/L Normal 98-107 [facility] ([place] Comment on above: Performed By: #### A DIFF, ANEU, CMP, MG, GFR, LD, CRP, CBC, ESR #### [place] [address] CO2 [Moles/Vol] 28 mmol/L Normal 22-29 [facility] ([place] Comment on above: Performed By: #### A DIFF, ANEU, CMP, MG, GFR, LD, CRP, CBC, ESR #### [place] [address] Creatinine [Mass/Vol] 0.71 mg/dL Normal 0.55-1.02 [facility] ([place] Comment on above: Performed By: #### A DIFF, ANEU, CMP, MG, GFR, LD, CRP, CBC, ESR #### [address] [address] Electrolyte Balance 9.0 mEq/L Normal 4.0-15.0 [facility] ([place] Comment on above: Performed By: #### A DIFF, ANEU, CMP, MG, GFR, LD, CRP, CBC, ESR #### [address] [address] Globulin 2.6 G/dL Normal [facility] ([place] Comment on above: Performed By: #### A DIFF, ANEU, CMP, MG, GFR, LD, CRP, CBC, ESR #### [address] [address] Glucose [Mass/Vol] 110 mg/dL High 70-105 [facility] ([place] Comment on above: Performed By: #### A DIFF, ANEU, CMP, MG, GFR, LD, CRP, CBC, ESR #### [address] [address] Potassium [Moles/Vol] 4.0 mmol/L Normal 3.5-5.1 [facility] ([place] Comment on above: Performed By: #### A DIFF, ANEU, CMP, MG, GFR, LD, CRP, CBC, ESR #### [address] [address] Sodium [Moles/Vol] 142 mmol/L Normal 136-145 [facility] ([place] Comment on above: Performed By: #### A DIFF, ANEU, CMP, MG, GFR, LD, CRP, CBC, ESR #### [address] [address] Total Protein 5.9 G/dL Low 6.4-8.2 [facility] ([place] Comment on above: Performed By: #### A DIFF, ANEU, CMP, MG, GFR, LD, CRP, CBC, ESR #### [address] [address] Urea nitrogen [Mass/Vol] 6 mg/dL Low 7-18 [facility] ([place] Comment on above: Performed By: #### A DIFF, ANEU, CMP, MG, GFR, LD, CRP, CBC, ESR #### [address] [address] Delores 03-30-2023 Ferritin [Mass/Vol] 69.0 ng/mL Normal 8.0-252.0 [facility] ([place] Comment on above: Performed By: #### A DIFF, ANEU, CMP, MG, GFR, LD, CRP, CBC, ESR #### [address] [address] FESon 03-30-2023 Iron [Mass/Vol] 106 ug/dL Normal 50-170 [facility] ([place] Comment on above: Performed By: #### A DIFF, ANEU, CMP, MG, GFR, LD, CRP, CBC, ESR #### [address] [address] Iron Sat 28 % Normal [facility] ([place] Comment on above: Performed By: #### A DIFF, ANEU, CMP, MG, GFR, LD, CRP, CBC, ESR #### [address] [address] TIBC 372 mcg/dL Normal 250-450 [facility] ([place] Comment on above: Performed By: #### A DIFF, ANEU, CMP, MG, GFR, LD, CRP, CBC, ESR #### [address] [address] LIPIDon 03-30-2023 Cholesterol [Mass/Vol] 188 mg/dL Normal 0-200 [facility] ([place] Comment on above: Result Comment: Chol esterol Reference Interval: Less than 200 Desirable 200-239 Borderline high risk 240 and above High risk Performed By: #### A DIFF, ANEU, CMP, MG, GFR, LD, CRP, CBC, ESR #### [address] [address] Cholesterol in HDL [Mass/Vol] 29 mg/dL Low 40-60 [facility] ([place] Comment on above: Performed By: #### A DIFF, ANEU, CMP, MG, GFR, LD, CRP, CBC, ESR #### [address] [address] Cholesterol in LDL [Mass/Vol] 131 mg/dL High 0-130 [facility] ([place] Comment on above: Performed By: #### A DIFF, ANEU, CMP, MG, GFR, LD, CRP, CBC, ESR #### [address] [address] Triglyceride [Mass/Vol] 139 mg/dL Normal 0-150 [facility] ([place] Comment on above: Result Comment: Trig lyceride Reference Interval: Less than 150 Normal 150-199 Borderline high risk 200-499 High risk 500 or higher Very high risk Performed By: #### A DIFF, ANEU, CMP, MG, GFR, LD, CRP, CBC, ESR #### [address] [place] [address] MGon 03-30-2023 Magnesium [Mass/Vol] 1.9 mg/dL Normal 1.8-2.4 [facility] ([place]) Comment on above: Performed By: #### A DIFF, ANEU, CMP, MG, GFR, LD, CRP, CBC, ESR #### Sean [address] [address] TOXSCon 03-30-2023 U Ampheta (AO) Negative Normal [facility] ([place]) Comment on above: Performed By: #### U A, PREGU #### [address] [place], [place] [address] U Angy (AO) Negative [facility] ([place]) Comment on above: Performed By: #### U A, PREGU #### Esan [address] [place], [place] [address] U Narinder (AO) Negative Normal [facility] ([place]) Comment on above: Performed By: #### U A, PREGU #### Sean [address] [place], [place] [address] U Cannab (AO) Negative Normal [facility] ([place] Comment on above: Performed By: #### U A, PREGU #### Sean [address] [place], [place] [address] U Cocaine (AO) Negative Normal [facility] ([place]) Comment on above: Performed By: #### U A, PREGU #### Sean [address] [place], [place] [address] U Methadone (AO) Negative [facility] ([place]) Comment on above: Performed By: #### U A, PREGU #### Sean [address] [place], [place] [address] U PCP (AO) Negative [facility] ([place]) Comment on above: Performed By: #### U A, PREGU #### Sean [address] [place], [place] [address] U TCA (AO) Negative [facility] ([place]) Comment on above: Performed By: #### U A, PREGU #### Sean [address] [place], [place] [address] Urine Opiates (AO) Positive Normal [facility] ([place]) Comment on above: Performed By: #### U A, PREGU #### Sean [address] [place], [place] [address] US ABDOMEN LIMITEDon 023 US ABDOMEN LIMITED ORIGINAL EXAMINATION: LIMITED ABDOMINAL ULTRASOUND03/30/2023 10:02 am ABDOMEN LIMITED COMPARISON: 03/28/2023, 03/08/2023 HISTORY: ORDERING SYSTEM PROVIDED HISTORY: Reason for Exam: Transaminitis, RUQ pain FINDINGS: There is a partially visualized fluid collection either adjacent to or within the head of the pancreas. These are better seen on the previous CT. The liver is diffusely increased in echogenicity with normal contours which is compatible with fatty change. The liver is normal in size. No hepatic mass or biliary ductal dilatation is identified. The patient is status post cholecystectomy. The common duct measures 11 mm, which is not significantly changed and may be normal for the patient's post cholecystectomy state Survey image of the right kidney is normal without pelvocaliectasis. There is no ascites. IMPRESSION: Partially visualized fluid collection either adjacent to or within the pancreatic head. This is better assessed on the previous CT. Fatty liver. Interpreted by: Manish Dee MD Preliminary Report By: Manish Dee MD Electronically signed By Manish Dee MD Dictated Date: 03/30/2023 12:47:27 PM Prelim Date: 03/30/2023 12:55:18 PM Sign Date: 03/30/2023 12:55:18 PM Ordering Provider: SNOW JUARES Normal [facility] ([place]) .Auto Diffon 03-29-2023 Basophil, Absolute 0.0 10 3/mcL Normal 0.0-0.2 [facility] ([place]) Comment on above: Performed By: #### A DIFF, ANEU, CMP, MG, GFR, LD, CRP, CBC, ESR #### Sean [place] [address] [place], [place] [address] Basophils/100 WBC (Bld) 0.7 % Normal 0.0-2.5 [facility] ([place] Comment on above: Performed By: #### A DIFF, ANEU, CMP, MG, GFR, LD, CRP, CBC, ESR #### [address] [address] Eosinophil, Absolute 0.3 10 3/mcL Normal 0.0-0.4 [facility] ([place] Comment on above: Performed By: #### A DIFF, ANEU, CMP, MG, GFR, LD, CRP, CBC, ESR #### [address] [address] Eosinophils/100 WBC (Bld) 4.0 % Normal 0.0-7.0 [facility] ([place] Comment on above: Performed By: #### A DIFF, ANEU, CMP, MG, GFR, LD, CRP, CBC, ESR #### [address] [address] Lymphocyte, Absolute 2.2 10 3/mcL Normal 0.8-3.9 [facility] ([place] Comment on above: Performed By: #### A DIFF, ANEU, CMP, MG, GFR, LD, CRP, CBC, ESR #### [address] [address] Lymphocytes/100 WBC (Bld) 32.5 % Normal 10.0-50.0 [facility] ([place] Comment on above: Performed By: #### A DIFF, ANEU, CMP, MG, GFR, LD, CRP, CBC, ESR #### [address] [address] Monocyte, Absolute 0.5 10 3/mcL Normal 0.2-1.0 [facility] ([place] Comment on above: Performed By: #### A DIFF, ANEU, CMP, MG, GFR, LD, CRP, CBC, ESR #### [address] [address] Monocytes/100 WBC (Bld) 7.0 % Normal 1.7-13.0 [facility] ([place] Comment on above: Performed By: #### A DIFF, ANEU, CMP, MG, GFR, LD, CRP, CBC, ESR #### Sean [address] [address] Neutrophils/100 WBC (Bld) 55.8 % Normal 37.0-80.0 [facility] ([place] Comment on above: Performed By: #### A DIFF, ANEU, CMP, MG, GFR, LD, CRP, CBC, ESR #### Sean [address] [address] .GFRon 03-29-2023 GFR 94 ml/min/1.73sqm Normal [facility] ([place] Comment on above: Result Comment: GFR Population mean for , Non- Americans Ages 20-29 = 116 mL/min/1.73 sq.m. Ages 30-39 = 107 mL/min/1.73 sq.m. Ages 40-49 = 99 mL/min/1.73 sq.m. Ages 50-59 = 93 mL/min/1.73 sq.m. Ages 60-69 = 85 mL/min/1.73 sq.m. Ages 70+ = 75 mL/min/1.73 sq.m. Chronic Kidney Disease: Less than 60 mL/min/1.73 square meters End Stage Renal Disease: Less than 15 mL/min/1.73 square meters Performed By: #### U A, PREGU #### Sean [address] [place], [place] [address] GFR Non- 78 ml/min/1.73sqm Normal [facility] ([place] Comment on above: Result Comment: GFR Population mean for , Non- Americans Ages 20-29 = 116 mL/min/1.73 sq.m. Ages 30-39 = 107 mL/min/1.73 sq.m. Ages 40-49 = 99 mL/min/1.73 sq.m. Ages 50-59 = 93 mL/min/1.73 sq.m. Ages 60-69 = 85 mL/min/1.73 sq.m. Ages 70+ = 75 mL/min/1.73 sq.m. Chronic Kidney Disease: Less than 60 mL/min/1.73 square meters End Stage Renal Disease: Less than 15 mL/min/1.73 square meters Performed By: #### U A, PREGU #### [facility] [address] [place], [place] [address] .NEUABSon 03-29-2023 Neutrophil, Absolute 3.8 10 3/mcL Normal 2.9-6.2 [facility] ([place] Comment on above: Performed By: #### A DIFF, ANEU, CMP, MG, GFR, LD, CRP, CBC, ESR #### [address] [address] CBCon 03-29-2023 Erythrocyte distribution width (RBC) [Ratio] 13.8 % Normal 11.5-14.5 [facility] ([place] Comment on above: Performed By: #### A DIFF, ANEU, CMP, MG, GFR, LD, CRP, CBC, ESR #### [address] [address] Hematocrit (Bld) [Volume fraction] 36.4 % Low 37.0-47.0 [facility] ([place] Comment on above: Performed By: #### A DIFF, ANEU, CMP, MG, GFR, LD, CRP, CBC, ESR #### [address] [address] Hgb 12.1 G/dL Normal 12.0-16.0 [facility] ([place] Comment on above: Performed By: #### A DIFF, ANEU, CMP, MG, GFR, LD, CRP, CBC, ESR #### [address] [address] MCH (RBC) [Entitic mass] 31.5 pg High 27.0-31.2 [facility] ([place] Comment on above: Performed By: #### A DIFF, ANEU, CMP, MG, GFR, LD, CRP, CBC, ESR #### [place] [id number] MCHC 33.2 G/dL Normal 33.0-37.0 [facility] ([place] Comment on above: Performed By: #### A DIFF, ANEU, CMP, MG, GFR, LD, CRP, CBC, ESR #### [address] [address] MCV (RBC) [Entitic vol] 94.8 fL High 80.0-94.0 [facility] ([place] Comment on above: Performed By: #### A DIFF, ANEU, CMP, MG, GFR, LD, CRP, CBC, ESR #### Sean [address] [address] Platelet 299 10 3/mcL Normal 130-400 [facility] ([place]) Comment on above: Performed By: #### A DIFF, ANEU, CMP, MG, GFR, LD, CRP, CBC, ESR #### Sean [address] [address] Platelet mean volume (Bld) [Entitic vol] 6.7 fL Low 7.4-10.4 [facility] ([place]) Comment on above: Performed By: #### A DIFF, ANEU, CMP, MG, GFR, LD, CRP, CBC, ESR #### [address] [address] RBC 3.83 10 6/mcL Low 4.20-5.40 [facility] ([place] Comment on above: Performed By: #### A DIFF, ANEU, CMP, MG, GFR, LD, CRP, CBC, ESR #### Sean [address] [address] WBC 6.8 10 3/mcL Normal 4.6-10.8 [facility] ([place] Comment on above: Performed By: #### A DIFF, ANEU, CMP, MG, GFR, LD, CRP, CBC, ESR #### [address] [address] CMPon 03-29-2023 Albumin Level 3.5 G/dL Normal 3.5-5.0 [facility] ([place] Comment on above: Performed By: #### U Abigail PREGU #### Sean [address] [place], [place] [address] Albumin/Globulin [Mass ratio] 1.3 {ratio} Normal 1.1-2.5 [facility] ([place] Comment on above: Performed By: #### U Abigail PREGU #### [facility] [address] [place], [place] [address] ALP [Catalytic activity/Vol] 89 U/L Normal 40-135 [facility] ([place] Comment on above: Performed By: #### U A, PREGU #### [facility] [address] [place], [place] [address] ALT [Catalytic activity/Vol] 158 U/L High 14-59 [facility] ([place] Comment on above: Performed By: #### U A, PREGU #### [facility] [address] [place], [place] [address] AST [Catalytic activity/Vol] 107 U/L High 10-40 [facility] ([place] Comment on above: Performed By: #### U A, PREGU #### [facility] [address] [place], [place] [address] Bili Total 0.4 mg/dL Normal 0.2-1.0 [facility] ([place] Comment on above: Result Comment: Use of this assay is not recommended for patients undergoing treatment with eltrombopag due to the potential for falsely elevated results. Performed By: #### U A, PREGU #### [facility] [address] [place], [place] [address] BUN/Creatinine Ratio 19 ratio Normal 7-27 [facility] ([place] Comment on above: Performed By: #### U A, PREGU #### [facility] [address] [place], [place] [address] Calcium [Mass/Vol] 9.2 mg/dL Normal 8.4-10.2 [facility] ([place] Comment on above: Performed By: #### U A, PREGU #### [facility] [address] [place], [place] [address] Chloride [Moles/Vol] 102 mmol/L Normal 98-107 [facility] ([place] Comment on above: Performed By: #### U A, PREGU #### [facility] [address] [place], [place] [address] CO2 [Moles/Vol] 29 mmol/L Normal 22-29 [facility] ([place] Comment on above: Performed By: #### U A, PREGU #### Seanoz [address] [place], [place] [address] Creatinine [Mass/Vol] 0.79 mg/dL Normal 0.55-1.02 [facility] ([place] Comment on above: Performed By: #### U A, PREGU #### [facility] [address] [place], [place] [address] Electrolyte Balance 11.0 mEq/L Normal 4.0-15.0 [facility] ([place] Comment on above: Performed By: #### U A, PREGU #### Sean [address] [place], [place] [address] Globulin 2.7 G/dL Normal [facility] ([place] Comment on above: Performed By: #### U A, PREGU #### [facility] [address] [place], [place] [address] Glucose [Mass/Vol] 106 mg/dL High 70-105 [facility] ([place] Comment on above: Performed By: #### U A, PREGU #### [facility] [address] [place], [place] [address] Potassium [Moles/Vol] 3.8 mmol/L Normal 3.5-5.1 [facility] ([place] Comment on above: Performed By: #### U A, PREGU #### [facility] [address] [place], [place] [address] Sodium [Moles/Vol] 142 mmol/L Normal 136-145 [facility] ([place] Comment on above: Performed By: #### U A, PREGU #### [facility] [address] [place], [place] [address] Total Protein 6.2 G/dL Low 6.4-8.2 [facility] ([place] Comment on above: Performed By: #### U A, PREGU #### [facility] [address] [place], [place] [address] Urea nitrogen [Mass/Vol] 15 mg/dL Normal 7-18 [facility] ([place] Comment on above: Performed By: #### U A PREGU #### [facility] [address] [place], [place] [address] CRPon 03-29-2023 CRP [Mass/Vol] mg/L Normal 0.0-0.9 [facility] ([place] Comment on above: Performed By: #### A DIFF, ANEU, CMP, MG, GFR, LD, CRP, CBC, ESR #### [address] [address] ESRon 03-29-2023 Erythrocyte Sed Rate 7 mm/hr Normal 0-20 [facility] ([place] Comment on above: Performed By: #### U A PREGU #### [facility] [address] [place], [place] [address] LDHon 03-29-2023 LDH 218 U/L Normal 81-234 [facility] ([place] Comment on above: Performed By: #### A DIFF, ANEU, CMP, MG, GFR, LD, CRP, CBC, ESR #### [address] [address] MGon 03-29-2023 Magnesium [Mass/Vol] 1.8 mg/dL Normal 1.8-2.4 [facility] ([place] Comment on above: Performed By: #### A DIFF, ANEU, CMP, MG, GFR, LD, CRP, CBC, ESR #### [address] [address] .Auto Diffon 03-28-2023 Basophil, Absolute 0.1 10 3/mcL Normal 0.0-0.2 [facility] ([place] Comment on above: Performed By: #### A DIFF, ANEU, CMP, MG, GFR, LD, CRP, CBC, ESR #### [address] [address] Basophils/100 WBC (Bld) 1.1 % Normal 0.0-2.5 [facility] ([place] Comment on above: Performed By: #### A DIFF, ANEU, CMP, MG, GFR, LD, CRP, CBC, ESR #### [address] [address] Eosinophil, Absolute 0.2 10 3/mcL Normal 0.0-0.4 [facility] ([place] Comment on above: Performed By: #### A DIFF, ANEU, CMP, MG, GFR, LD, CRP, CBC, ESR #### [address] [address] Eosinophils/100 WBC (Bld) 2.8 % Normal 0.0-7.0 [facility] ([place] Comment on above: Performed By: #### A DIFF, ANEU, CMP, MG, GFR, LD, CRP, CBC, ESR #### [address] [address] Lymphocyte, Absolute 1.9 10 3/mcL Normal 0.8-3.9 [facility] ([place] Comment on above: Performed By: #### A DIFF, ANEU, CMP, MG, GFR, LD, CRP, CBC, ESR #### [address] [address] Lymphocytes/100 WBC (Bld) 24.7 % Normal 10.0-50.0 [facility] ([place] Comment on above: Performed By: #### A DIFF, ANEU, CMP, MG, GFR, LD, CRP, CBC, ESR #### [address] [address] Monocyte, Absolute 0.5 10 3/mcL Normal 0.2-1.0 [facility] ([place] Comment on above: Performed By: #### A DIFF, ANEU, CMP, MG, GFR, LD, CRP, CBC, ESR #### [address] [address] Monocytes/100 WBC (Bld) 6.3 % Normal 1.7-13.0 [facility] ([place]) Comment on above: Performed By: #### A DIFF, ANEU, CMP, MG, GFR, LD, CRP, CBC, ESR #### [address] [address] Neutrophils/100 WBC (Bld) 65.1 % Normal 37.0-80.0 [facility] ([place]) Comment on above: Performed By: #### A DIFF, ANEU, CMP, MG, GFR, LD, CRP, CBC, ESR #### [address] [address] .GFRon 03-28-2023 GFR Non- 79 ml/min/1.73sqm Normal [facility] ([place]) Comment on above: Result Comment: GFR Population mean for , Non- Americans Ages 20-29 = 116 mL/min/1.73 sq.m. Ages 30-39 = 107 mL/min/1.73 sq.m. Ages 40-49 = 99 mL/min/1.73 sq.m. Ages 50-59 = 93 mL/min/1.73 sq.m. Ages 60-69 = 85 mL/min/1.73 sq.m. Ages 70+ = 75 mL/min/1.73 sq.m. Chronic Kidney Disease: Less than 60 mL/min/1.73 square meters End Stage Renal Disease: Less than 15 mL/min/1.73 square meters Performed By: #### A DIFF, ANEU, CMP, MG, GFR, LD, CRP, CBC, ESR #### [address] [address] GFR 96 ml/min/1.73sqm Normal [facility] ([place]) Comment on above: Result Comment: GFR Population mean for , Non- Americans Ages 20-29 = 116 mL/min/1.73 sq.m. Ages 30-39 = 107 mL/min/1.73 sq.m. Ages 40-49 = 99 mL/min/1.73 sq.m. Ages 50-59 = 93 mL/min/1.73 sq.m. Ages 60-69 = 85 mL/min/1.73 sq.m. Ages 70+ = 75 mL/min/1.73 sq.m. Chronic Kidney Disease: Less than 60 mL/min/1.73 square meters End Stage Renal Disease: Less than 15 mL/min/1.73 square meters Performed By: #### A DIFF, ANEU, CMP, MG, GFR, LD, CRP, CBC, ESR #### [address] [address] .MDWon 03-28-2023 Monocyte Distribution Width 21.06 High 0.00-20.00 [facility] ([place]) Comment on above: Result Comment: For adults in ED, MDW>20.0 may be associated with a higher risk of sepsis during the first 12hrs of hospital admission Performed By: #### A DIFF, ANEU, CMP, MG, GFR, LD, CRP, CBC, ESR #### [place] [id number] .NEUABSon 03-28-2023 Neutrophil, Absolute 4.9 10 3/mcL Normal 2.9-6.2 [facility] ([place]) Comment on above: Performed By: #### A DIFF, ANEU, CMP, MG, GFR, LD, CRP, CBC, ESR #### [place] [id number] CBCon 03-28-2023 Erythrocyte distribution width (RBC) [Ratio] 13.8 % Normal 11.5-14.5 [facility] ([place]) Comment on above: Performed By: #### A DIFF, ANEU, CMP, MG, GFR, LD, CRP, CBC, ESR #### [place] [address] Hematocrit (Bld) [Volume fraction] 40.6 % Normal 37.0-47.0 [facility] ([place]) Comment on above: Performed By: #### A DIFF, ANEU, CMP, MG, GFR, LD, CRP, CBC, ESR #### [place] [id number] Hgb 13.5 G/dL Normal 12.0-16.0 [facility] ([place]) Comment on above: Performed By: #### A DIFF, ANEU, CMP, MG, GFR, LD, CRP, CBC, ESR #### [place] [id number] MCH (RBC) [Entitic mass] 30.8 pg Normal 27.0-31.2 [facility] ([place]) Comment on above: Performed By: #### A DIFF, ANEU, CMP, MG, GFR, LD, CRP, CBC, ESR #### [address] [address] MCHC 33.1 G/dL Normal 33.0-37.0 [facility] ([place]) Comment on above: Performed By: #### A DIFF, ANEU, CMP, MG, GFR, LD, CRP, CBC, ESR #### [address] [address] MCV (RBC) [Entitic vol] 93.0 fL Normal 80.0-94.0 [facility] ([place]) Comment on above: Performed By: #### A DIFF, ANEU, CMP, MG, GFR, LD, CRP, CBC, ESR #### [address] [address] Platelet 357 10 3/mcL Normal 130-400 [facility] ([place]) Comment on above: Performed By: #### A DIFF, ANEU, CMP, MG, GFR, LD, CRP, CBC, ESR #### [address] [address] Platelet mean volume (Bld) [Entitic vol] 6.6 fL Low 7.4-10.4 [facility] ([place]) Comment on above: Performed By: #### A DIFF, ANEU, CMP, MG, GFR, LD, CRP, CBC, ESR #### [address] [address] RBC 4.37 10 6/mcL Normal 4.20-5.40 [facility] ([place]) Comment on above: Performed By: #### A DIFF, ANEU, CMP, MG, GFR, LD, CRP, CBC, ESR #### [address] [address] WBC 7.6 10 3/mcL Normal 4.6-10.8 [facility] ([place]) Comment on above: Performed By: #### A DIFF, ANEU, CMP, MG, GFR, LD, CRP, CBC, ESR #### [address] [address] CMPon 03-28-2023 Albumin Level 3.8 G/dL Normal 3.5-5.0 [facility] ([place]) Comment on above: Performed By: #### A DIFF, ANEU, CMP, MG, GFR, LD, CRP, CBC, ESR #### [address] [address] Albumin/Globulin [Mass ratio] 1.2 {ratio} Normal 1.1-2.5 [facility] ([place]) Comment on above: Performed By: #### A DIFF, ANEU, CMP, MG, GFR, LD, CRP, CBC, ESR #### [address] [address] ALP [Catalytic activity/Vol] 94 U/L Normal 40-135 [facility] ([place]) Comment on above: Performed By: #### A DIFF, ANEU, CMP, MG, GFR, LD, CRP, CBC, ESR #### [address] [address] ALT [Catalytic activity/Vol] 157 U/L High 14-59 [facility] ([place]) Comment on above: Performed By: #### A DIFF, ANEU, CMP, MG, GFR, LD, CRP, CBC, ESR #### [address] [address] AST [Catalytic activity/Vol] 70 U/L High 10-40 [facility] ([place]) Comment on above: Performed By: #### A DIFF, ANEU, CMP, MG, GFR, LD, CRP, CBC, ESR #### [address] [address] Bili Total 0.2 mg/dL Normal 0.2-1.0 [facility] ([place]) Comment on above: Result Comment: Use of this assay is not recommended for patients undergoing treatment with eltrombopag due to the potential for falsely elevated results. Performed By: #### A DIFF, ANEU, CMP, MG, GFR, LD, CRP, CBC, ESR #### [address] [address] BUN/Creatinine Ratio 24 ratio Normal 7-27 [facility] ([place]) Comment on above: Performed By: #### A DIFF, ANEU, CMP, MG, GFR, LD, CRP, CBC, ESR #### [address] [address] Calcium [Mass/Vol] 9.6 mg/dL Normal 8.4-10.2 [facility] ([place]) Comment on above: Performed By: #### A DIFF, ANEU, CMP, MG, GFR, LD, CRP, CBC, ESR #### [address] [address] Chloride [Moles/Vol] 98 mmol/L Normal 98-107 [facility] ([place]) Comment on above: Performed By: #### A DIFF, ANEU, CMP, MG, GFR, LD, CRP, CBC, ESR #### [address] [address] CO2 [Moles/Vol] 30 mmol/L High 22-29 [facility] ([place]) Comment on above: Performed By: #### A DIFF, ANEU, CMP, MG, GFR, LD, CRP, CBC, ESR #### [address] [address] Creatinine [Mass/Vol] 0.78 mg/dL Normal 0.55-1.02 [facility] ([place]) Comment on above: Performed By: #### A DIFF, ANEU, CMP, MG, GFR, LD, CRP, CBC, ESR #### [address] [address] Electrolyte Balance 12.0 mEq/L Normal 4.0-15.0 [facility] ([place]) Comment on above: Performed By: #### A DIFF, ANEU, CMP, MG, GFR, LD, CRP, CBC, ESR #### [address] [address] Globulin 3.1 G/dL Normal [facility] ([place]) Comment on above: Performed By: #### A DIFF, ANEU, CMP, MG, GFR, LD, CRP, CBC, ESR #### [address] [address] Glucose [Mass/Vol] 159 mg/dL High 70-105 [facility] ([place]) Comment on above: Performed By: #### A DIFF, ANEU, CMP, MG, GFR, LD, CRP, CBC, ESR #### [address] [address] Potassium [Moles/Vol] 3.5 mmol/L Normal 3.5-5.1 [facility]) Comment on above: Performed By: #### A DIFF, ANEU, CMP, MG, GFR, LD, CRP, CBC, ESR #### [address] [address] Sodium [Moles/Vol] 140 mmol/L Normal 136-145 [facility]) Comment on above: Performed By: #### A DIFF, ANEU, CMP, MG, GFR, LD, CRP, CBC, ESR #### [address] [address] Total Protein 6.9 G/dL Normal 6.4-8.2 [facility] ([place]) Comment on above: Performed By: #### A DIFF, ANEU, CMP, MG, GFR, LD, CRP, CBC, ESR #### [address] [address] Urea nitrogen [Mass/Vol] 19 mg/dL High 7-18 [facility] ([place]) Comment on above: Performed By: #### A DIFF, ANEU, CMP, MG, GFR, LD, CRP, CBC, ESR #### [address] [address] [address] ABD/PELVIS W/ IV CONTRAST ONLYon 03-28-2023 CT ABD/PELVIS W/ IV CONTRAST ONLY ORIGINAL EXAMINATION: CT OF THE ABDOMEN AND PELVIS WITH CONTRAST 03/28/2023 8:55 pm TECHNIQUE: CT of the abdomen and pelvis was performed with the administration of intravenous contrast. Multiplanar reformatted images are provided for review. Automated exposure control, iterative reconstruction, and/or weight based adjustment of the mA/kV was utilized to reduce the radiation dose to as low as reasonably achievable. COMPARISON: 03/07/2023 HISTORY: ORDERING SYSTEM PROVIDED HISTORY: Reason for Exam: pancreatitis, persistant FINDINGS: The lung bases demonstrate no acute process. Possible transient hepatic attenuation differences versus geographic fatty infiltration. Subcentimeter hypodensity within the medial right hepatic lobe possibly a cyst versus hemangioma. The spleen and adrenal glands are unremarkable. Prior cholecystectomy. Redemonstration of heterogeneous enhancement of the pancreas with areas of lobular non enhancement and mild peripancreatic inflammation. These findings are not significantly changed from comparison 03/07/2023 exam. Interval increase in a small fluid density structure posterior to the main portal vein measuring 1.9 cm, previously 0.9 cm. Symmetric nephrograms. The ureters and bladder are unremarkable. Nondilated loops of small bowel. The appendix is not definitely visualized, however there is no pericecal inflammation. The colon demonstrates no acute process. Nonaneurysmal abdominal aorta. No gross pneumoperitoneum. Subcentimeter peripancreatic lymph nodes are noted. No acute osseous abnormality. IMPRESSION: Findings compatible with sequela of pancreatitis including peripancreatic inflammatory changes and areas of heterogeneous and lobular non enhancement not significantly changed from comparison 03/07/2023 exam. Fluid density structure posterior to the main portal vein is slightly increased and is favored to represent a peripancreatic fluid collection over an abnormal lymph node. Attention on follow-up. I have personally reviewed the images of this examination and agree with the resident's findings and interpretation. Interpreted by: Rafael Canales Preliminary Report By: Terrence Xiao Electronically signed By Rafael Canales Dictated Date: 03/28/2023 8:59:50 PM Prelim Date: 03/28/2023 9:08:36 PM Sign Date: 03/28/2023 9:48:56 PM Ordering Provider: LETHA SHAIKH Normal [facility] ([place]) LIPon 03-28-2023 Lipase Level 165 U/L High 16-77 [facility] ([place]) Comment on above: Performed By: #### A DIFF, ANEU, CMP, MG, GFR, LD, CRP, CBC, ESR #### Sean Chawla [address] [place] [address] [facility] 03-28-2023 Color (U) Yellow Normal [facility] ([place]) Comment on above: Performed By: #### U A, PREGU #### Sean [address] [place], [place] [address] Glucose (U) [Mass/Vol] Negative Normal Negative [facility] ([place]) Comment on above: Performed By: #### U A, PREGU #### Sean [address] [place], [place] [address] Ketones Ql (U) Negative Normal Negative [facility] ([place]) Comment on above: Performed By: #### U A, PREGU #### Sean [address] [place], [place] [address] UA Appear Clear Normal Clear [facility] ([place]) Comment on above: Performed By: #### U A, PREGU #### Sean [address] [place], [place] [address] UA Blood Negative Normal Negative [facility] ([place]) Comment on above: Performed By: #### U A, PREGU #### Sean [address] [place], [place] [address] UA Leuk Est Negative Normal Negative [facility] ([place]) Comment on above: Performed By: #### U A, PREGU #### Sean [address] [place], [place] [address] UA Nitrite Negative Normal Negative [facility] ([place]) Comment on above: Performed By: #### U A, PREGU #### Sean [address] [place], [place] [address] UA pH 6.0 Normal 5.0 - 8.0 [facility] ([place]) Comment on above: Performed By: #### U A, PREGU #### Sean [address]ters [address] [place], [place] [address] UA Protein Negative Normal Negative [facility] ([place]) Comment on above: Performed By: #### U A, PREGU #### Sean [address] [place], [place] [address] UA Spec Grav 1.025 Normal 1.015-1.025 [facility] ([place]) Comment on above: Performed By: #### U A, PREGU #### Sean [address] [place], [place] [address] UA Specimen Type Not Given Normal [facility] ([place]) Comment on above: Performed By: #### U A, PREGU #### Sean [address] [place], [place] [address] UA Urobilinogen 0.2 E.U./dL Normal 0.2-1.0 [facility] ([place] Comment on above: Performed By: #### U A, PREGU #### Sean [address] [place] [id number] Urobilinogen (U) [Mass/Vol] Negative Normal Negative [facility] ([place] Comment on above: Performed By: #### U A, PREGU #### Sean [address] [place] [address] LABORATORYOrdered By: SYSTEM SYSTEM on 03-11-2023 Albumin BCP dye [Mass/Vol] 4.0 G/dL Invalid Interpretation Code 3.5 - 5.0 G/dL AO ADM SS Albumin/Globulin [Mass ratio] 1.4 {ratio} Invalid Interpretation Code 1.1 - 2.5 ratio AO ADM SS ALP [Catalytic activity/Vol] 120 U/L Invalid Interpretation Code 40 - 135 U/L AO ADM SS ALT With P-5'-P [Catalytic activity/Vol] 155 U/L Invalid Interpretation Code 14 - 59 U/L AO ADM SS AST With P-5'-P [Catalytic activity/Vol] 85 U/L Invalid Interpretation Code 10 - 40 U/L AO ADM SS Bilirubin [Mass/Vol] 0.4 mg/dL Invalid Interpretation Code 0.2 - 1.0 mg/dL AO ADM SS Calcium [Mass/Vol] 9.6 mg/dL Invalid Interpretation Code 8.4 - 10.2 mg/dL AO ADM SS Chloride [Moles/Vol] 93 mmol/L Invalid Interpretation Code 98 - 107 mmol/L AO ADM SS CO2 [Moles/Vol] 36 mmol/L Invalid Interpretation Code 22 - 29 mmol/L AO ADM SS Creatinine [Mass/Vol] 0.94 mg/dL Invalid Interpretation Code 0.55 - 1.02 mg/dL AO ADM SS Electrolyte Balance 9.0 mEq/L Invalid Interpretation Code 4.0 - 15.0 mEq/L AO ADM SS GFR/1.73 sq M.predicted among blacks MDRD (S/P/Bld) [Vol rate/Area] 77 ml/min/1.73sqm Invalid Interpretation Code AO Chemistry S GFR/1.73 sq M.predicted among non-blacks MDRD (S/P/Bld) [Vol rate/Area] 64 ml/min/1.73sqm Invalid Interpretation Code AO Chemistry S Globulin 2.8 G/dL Invalid Interpretation Code AO ADM SS Glucose [Mass/Vol] 128 mg/dL Invalid Interpretation Code 70 - 105 mg/dL AO ADM SS Lipase [Catalytic activity/Vol] 136 U/L Invalid Interpretation Code 16 - 77 U/L AO ADM SS Magnesium [Mass/Vol] 1.7 mg/dL Invalid Interpretation Code 1.8 - 2.4 mg/dL AO ADM SS Potassium [Moles/Vol] 2.9 mmol/L Invalid Interpretation Code 3.5 - 5.1 mmol/L AO ADM SS Protein [Mass/Vol] 6.8 G/dL Invalid Interpretation Code 6.4 - 8.2 G/dL AO ADM SS Sodium [Moles/Vol] 138 mmol/L Invalid Interpretation Code 136 - 145 mmol/L AO ADM SS Urea nitrogen [Mass/Vol] 4 mg/dL Invalid Interpretation Code 7 - 18 mg/dL AO ADM SS Urea nitrogen/Creatinine [Mass ratio] 4 ratio Invalid Interpretation Code 7 - 27 ratio AO ADM SS LABORATORYOrdered By: Gil Hardy on 03-11-2023 Basophil, Absolute 0.0 103/mcL Invalid Interpretation Code 0.0 - 0.2 10^3/mcL AO Workflow SS Basophils/100 WBC (Bld) 0.8 % Invalid Interpretation Code 0.0 - 2.5 % AO Workflow SS Eosinophil, Absolute 0.4 103/mcL Invalid Interpretation Code 0.0 - 0.4 10^3/mcL AO Workflow SS Eosinophils/100 WBC (Bld) 8.9 % Invalid Interpretation Code 0.0 - 7.0 % AO Workflow SS Erythrocyte distribution width (RBC) [Ratio] 13.8 % Invalid Interpretation Code 11.5 - 14.5 % AO Workflow SS Hematocrit (Bld) [Volume fraction] 40.0 % Invalid Interpretation Code 37.0 - 47.0 % AO Workflow SS Hemoglobin (Bld) [Mass/Vol] 13.6 G/dL Invalid Interpretation Code 12.0 - 16.0 G/dL AO Workflow SS Lymphocyte, Absolute 1.7 103/mcL Invalid Interpretation Code 0.8 - 3.9 10^3/mcL AO Workflow SS Lymphocytes/100 WBC (Bld) 35.9 % Invalid Interpretation Code 10.0 - 50.0 % AO Workflow SS MCH (RBC) [Entitic mass] 31.5 pg Invalid Interpretation Code 27.0 - 31.2 pg AO Workflow SS MCHC 34.0 G/dL Invalid Interpretation Code 33.0 - 37.0 G/dL AO Workflow SS MCV (RBC) [Entitic vol] 92.6 fL Invalid Interpretation Code 80.0 - 94.0 fL AO Workflow SS Monocyte, Absolute 0.5 103/mcL Invalid Interpretation Code 0.2 - 1.0 10^3/mcL AO Workflow SS Monocytes/100 WBC (Bld) 10.5 % Invalid Interpretation Code 1.7 - 13.0 % AO Workflow SS Neutrophil, Absolute 2.0 103/mcL Invalid Interpretation Code 2.9 - 6.2 10^3/mcL AO Workflow SS Neutrophils/100 WBC (Bld) 43.9 % Invalid Interpretation Code 37.0 - 80.0 % AO Workflow SS Platelet mean volume (Bld) [Entitic vol] 6.5 fL Invalid Interpretation Code 7.4 - 10.4 fL AO Workflow SS Platelets (Bld) [#/Vol] 365 103/mcL Invalid Interpretation Code 130 - 400 10^3/mcL AO Workflow SS RBC (Bld) [#/Vol] 4.32 106/mcL Invalid Interpretation Code 4.20 - 5.40 10^6/mcL AO Workflow SS WBC (Bld) [#/Vol] 4.7 103/mcL Invalid Interpretation Code 4.6 - 10.8 10^3/mcL AO Workflow SS LABORATORYOrdered By: SYSTEM SYSTEM on 03-10-2023 Albumin BCP dye [Mass/Vol] 4.1 G/dL Invalid Interpretation Code 3.5 - 5.0 G/dL AO ADM SS Albumin/Globulin [Mass ratio] 1.6 {ratio} Invalid Interpretation Code 1.1 - 2.5 ratio AO ADM SS ALP [Catalytic activity/Vol] 118 U/L Invalid Interpretation Code 40 - 135 U/L AO ADM SS ALT With P-5'-P [Catalytic activity/Vol] 168 U/L Invalid Interpretation Code 14 - 59 U/L AO ADM SS AST With P-5'-P [Catalytic activity/Vol] 141 U/L Invalid Interpretation Code 10 - 40 U/L AO ADM SS Bilirubin [Mass/Vol] 0.4 mg/dL Invalid Interpretation Code 0.2 - 1.0 mg/dL AO ADM SS Calcium [Mass/Vol] 9.8 mg/dL Invalid Interpretation Code 8.4 - 10.2 mg/dL AO ADM SS Chloride [Moles/Vol] 97 mmol/L Invalid Interpretation Code 98 - 107 mmol/L AO ADM SS CO2 [Moles/Vol] 35 mmol/L Invalid Interpretation Code 22 - 29 mmol/L AO ADM SS Creatinine [Mass/Vol] 0.87 mg/dL Invalid Interpretation Code 0.55 - 1.02 mg/dL AO ADM SS Electrolyte Balance 5.0 mEq/L Invalid Interpretation Code 4.0 - 15.0 mEq/L AO ADM SS GFR/1.73 sq M.predicted among blacks MDRD (S/P/Bld) [Vol rate/Area] 84 ml/min/1.73sqm Invalid Interpretation Code AO Chemistry S GFR/1.73 sq M.predicted among non-blacks MDRD (S/P/Bld) [Vol rate/Area] 69 ml/min/1.73sqm Invalid Interpretation Code AO Chemistry S Globulin 2.6 G/dL Invalid Interpretation Code AO ADM SS Glucose [Mass/Vol] 138 mg/dL Invalid Interpretation Code 70 - 105 mg/dL AO ADM SS Lipase [Catalytic activity/Vol] 107 U/L Invalid Interpretation Code 16 - 77 U/L AO ADM SS Magnesium [Mass/Vol] 1.8 mg/dL Invalid Interpretation Code 1.8 - 2.4 mg/dL AO ADM SS Potassium [Moles/Vol] 3.4 mmol/L Invalid Interpretation Code 3.5 - 5.1 mmol/L AO ADM SS Protein [Mass/Vol] 6.7 G/dL Invalid Interpretation Code 6.4 - 8.2 G/dL AO ADM SS Sodium [Moles/Vol] 137 mmol/L Invalid Interpretation Code 136 - 145 mmol/L AO ADM SS Urea nitrogen [Mass/Vol] 6 mg/dL Invalid Interpretation Code 7 - 18 mg/dL AO ADM SS Urea nitrogen/Creatinine [Mass ratio] 7 ratio Invalid Interpretation Code 7 - 27 ratio AO ADM SS LABORATORYOrdered By: Elaine Skinner on 03-10-2023 Basophil, Absolute 0.0 103/mcL Invalid Interpretation Code 0.0 - 0.2 10^3/mcL AO Workflow SS Basophils/100 WBC (Bld) 1.0 % Invalid Interpretation Code 0.0 - 2.5 % AO Workflow SS Eosinophil, Absolute 0.4 103/mcL Invalid Interpretation Code 0.0 - 0.4 10^3/mcL AO Workflow SS Eosinophils/100 WBC (Bld) 7.5 % Invalid Interpretation Code 0.0 - 7.0 % AO Workflow SS Erythrocyte distribution width (RBC) [Ratio] 13.7 % Invalid Interpretation Code 11.5 - 14.5 % AO Workflow SS Hematocrit (Bld) [Volume fraction] 39.1 % Invalid Interpretation Code 37.0 - 47.0 % AO Workflow SS Hemoglobin (Bld) [Mass/Vol] 13.1 G/dL Invalid Interpretation Code 12.0 - 16.0 G/dL AO Workflow SS Lymphocyte, Absolute 1.2 103/mcL Invalid Interpretation Code 0.8 - 3.9 10^3/mcL AO Workflow SS Lymphocytes/100 WBC (Bld) 24.8 % Invalid Interpretation Code 10.0 - 50.0 % AO Workflow SS MCH (RBC) [Entitic mass] 31.2 pg Invalid Interpretation Code 27.0 - 31.2 pg AO Workflow SS MCHC 33.5 G/dL Invalid Interpretation Code 33.0 - 37.0 G/dL AO Workflow SS MCV (RBC) [Entitic vol] 93.2 fL Invalid Interpretation Code 80.0 - 94.0 fL AO Workflow SS Monocyte, Absolute 0.4 103/mcL Invalid Interpretation Code 0.2 - 1.0 10^3/mcL AO Workflow SS Monocytes/100 WBC (Bld) 8.5 % Invalid Interpretation Code 1.7 - 13.0 % AO Workflow SS Neutrophil, Absolute 2.8 103/mcL Invalid Interpretation Code 2.9 - 6.2 10^3/mcL AO Workflow SS Neutrophils/100 WBC (Bld) 58.2 % Invalid Interpretation Code 37.0 - 80.0 % AO Workflow SS Platelet mean volume (Bld) [Entitic vol] 6.4 fL Invalid Interpretation Code 7.4 - 10.4 fL AO Workflow SS Platelets (Bld) [#/Vol] 344 103/mcL Invalid Interpretation Code 130 - 400 10^3/mcL AO Workflow SS RBC (Bld) [#/Vol] 4.19 106/mcL Invalid Interpretation Code 4.20 - 5.40 10^6/mcL AO Workflow SS WBC (Bld) [#/Vol] 4.8 103/mcL Invalid Interpretation Code 4.6 - 10.8 10^3/mcL AO Workflow SS LABORATORYOrdered By: KENNEDY WESTBROOK CONTRIBUTOR_SYSTEM on 03-10-2023 IGG Subclass 1 434.2 mg/dL Invalid Interpretation Code 382.4-928.6m g/dL AO Sendouts SS Comment on above: Result Comment: Perf ormed By: [place] [address] [employer]ting [employer] Operator: Jameson Saldivar III, M.D. CLIA#: [id number] IGG Subclass 2 238.2 mg/dL Invalid Interpretation Code 241.8-700.3m g/dL AO Sendouts SS Comment on above: Result Comment: Perf ormed By: [place] [address] [employer]ting [employer] Operator: Jameson Saldivar III, M.D. CLIA#: [id number] IGG Subclass 3 32.2 mg/dL Invalid Interpretation Code 21.8-176.1mg /dL AO Sendouts SS Comment on above: Result Comment: Perf ormed By: [place] [address] [employer]ting [employer] Operator: Jameson Saldivar III, M.D. CLIA#: [id number] IGG Subclass 4 110.3 mg/dL Invalid Interpretation Code 3.9-86.4mg/d L AO Sendouts SS Comment on above: Result Comment: Perf ormed By: [place] [address] [employer]ting [employer] Operator: Jameson Saldivar III, M.D. CLIA#: [id number] LABORATORYOrdered By: SYSTEM SYSTEM on 03-09-2023 Albumin BCP dye [Mass/Vol] 3.8 G/dL Invalid Interpretation Code 3.5 - 5.0 G/dL AO ADM SS Albumin/Globulin [Mass ratio] 1.5 {ratio} Invalid Interpretation Code 1.1 - 2.5 ratio AO ADM SS ALP [Catalytic activity/Vol] 96 U/L Invalid Interpretation Code 40 - 135 U/L AO ADM SS ALT With P-5'-P [Catalytic activity/Vol] 105 U/L Invalid Interpretation Code 14 - 59 U/L AO ADM SS AST With P-5'-P [Catalytic activity/Vol] 49 U/L Invalid Interpretation Code 10 - 40 U/L AO ADM SS Bilirubin [Mass/Vol] 0.5 mg/dL Invalid Interpretation Code 0.2 - 1.0 mg/dL AO ADM SS Calcium [Mass/Vol] 9.4 mg/dL Invalid Interpretation Code 8.4 - 10.2 mg/dL AO ADM SS Chloride [Moles/Vol] 98 mmol/L Invalid Interpretation Code 98 - 107 mmol/L AO ADM SS CO2 [Moles/Vol] 32 mmol/L Invalid Interpretation Code 22 - 29 mmol/L AO ADM SS Creatinine [Mass/Vol] 0.84 mg/dL Invalid Interpretation Code 0.55 - 1.02 mg/dL AO ADM SS Electrolyte Balance 8.0 mEq/L Invalid Interpretation Code 4.0 - 15.0 mEq/L AO ADM SS GFR/1.73 sq M.predicted among blacks MDRD (S/P/Bld) [Vol rate/Area] 88 ml/min/1.73sqm Invalid Interpretation Code AO Chemistry S GFR/1.73 sq M.predicted among non-blacks MDRD (S/P/Bld) [Vol rate/Area] 72 ml/min/1.73sqm Invalid Interpretation Code AO Chemistry S Globulin 2.6 G/dL Invalid Interpretation Code AO ADM SS Glucose [Mass/Vol] 116 mg/dL Invalid Interpretation Code 70 - 105 mg/dL AO ADM SS Lipase [Catalytic activity/Vol] 106 U/L Invalid Interpretation Code 16 - 77 U/L AO ADM SS Magnesium [Mass/Vol] 1.9 mg/dL Invalid Interpretation Code 1.8 - 2.4 mg/dL AO ADM SS Potassium [Moles/Vol] 3.5 mmol/L Invalid Interpretation Code 3.5 - 5.1 mmol/L AO ADM SS Protein [Mass/Vol] 6.4 G/dL Invalid Interpretation Code 6.4 - 8.2 G/dL AO ADM SS Sodium [Moles/Vol] 138 mmol/L Invalid Interpretation Code 136 - 145 mmol/L AO ADM SS Urea nitrogen [Mass/Vol] 7 mg/dL Invalid Interpretation Code 7 - 18 mg/dL AO ADM SS Urea nitrogen/Creatinine [Mass ratio] 8 ratio Invalid Interpretation Code 7 - 27 ratio AO ADM SS LABORATORYOrdered By: Carie Borjas on 03-09-2023 Basophil, Absolute 0.1 103/mcL Invalid Interpretation Code 0.0 - 0.2 10^3/mcL AO Workflow SS Basophils/100 WBC (Bld) 0.8 % Invalid Interpretation Code 0.0 - 2.5 % AO Workflow SS Eosinophil, Absolute 0.4 103/mcL Invalid Interpretation Code 0.0 - 0.4 10^3/mcL AO Workflow SS Eosinophils/100 WBC (Bld) 6.3 % Invalid Interpretation Code 0.0 - 7.0 % AO Workflow SS Erythrocyte distribution width (RBC) [Ratio] 13.8 % Invalid Interpretation Code 11.5 - 14.5 % AO Workflow SS Hematocrit (Bld) [Volume fraction] 37.8 % Invalid Interpretation Code 37.0 - 47.0 % AO Workflow SS Hemoglobin (Bld) [Mass/Vol] 12.7 G/dL Invalid Interpretation Code 12.0 - 16.0 G/dL AO Workflow SS Lymphocyte, Absolute 1.8 103/mcL Invalid Interpretation Code 0.8 - 3.9 10^3/mcL AO Workflow SS Lymphocytes/100 WBC (Bld) 29.4 % Invalid Interpretation Code 10.0 - 50.0 % AO Workflow SS MCH (RBC) [Entitic mass] 31.4 pg Invalid Interpretation Code 27.0 - 31.2 pg AO Workflow SS MCHC 33.7 G/dL Invalid Interpretation Code 33.0 - 37.0 G/dL AO Workflow SS MCV (RBC) [Entitic vol] 93.1 fL Invalid Interpretation Code 80.0 - 94.0 fL AO Workflow SS Monocyte, Absolute 0.5 103/mcL Invalid Interpretation Code 0.2 - 1.0 10^3/mcL AO Workflow SS Monocytes/100 WBC (Bld) 8.0 % Invalid Interpretation Code 1.7 - 13.0 % AO Workflow SS Neutrophil, Absolute 3.5 103/mcL Invalid Interpretation Code 2.9 - 6.2 10^3/mcL AO Workflow SS Neutrophils/100 WBC (Bld) 55.5 % Invalid Interpretation Code 37.0 - 80.0 % AO Workflow SS Platelet mean volume (Bld) [Entitic vol] 6.5 fL Invalid Interpretation Code 7.4 - 10.4 fL AO Workflow SS Platelets (Bld) [#/Vol] 332 103/mcL Invalid Interpretation Code 130 - 400 10^3/mcL AO Workflow SS RBC (Bld) [#/Vol] 4.06 106/mcL Invalid Interpretation Code 4.20 - 5.40 10^6/mcL AO Workflow SS WBC (Bld) [#/Vol] 6.3 103/mcL Invalid Interpretation Code 4.6 - 10.8 10^3/mcL AO Workflow SS LABORATORYOrdered By: Kayla Villalpando on 03-08-2023 Blood Glucose Testing Reason Routine (03/08/23 8:34 AM) [facility] Glucose [Mass/Vol] 94 mg/dL Invalid Interpretation Code 70 - 110 mg/dL [facility] LABORATORYOrdered By: Elaine Skinner on 03-08-2023 Calcium.ionized (Bld) [Moles/Vol] 1.11 mmol/L Invalid Interpretation Code 1.12 - 1.32 mmol/L AO Blood Gas SS LABORATORYOrdered By: Gil Hardy on 03-08-2023 Cholesterol [Mass/Vol] 181 mg/dL Invalid Interpretation Code 0 - 200 mg/dL AO ADM SS Cholesterol in HDL [Mass/Vol] 32 mg/dL Invalid Interpretation Code 40 - 60 mg/dL AO ADM SS Cholesterol in LDL [Mass/Vol] 128 mg/dL Invalid Interpretation Code 0 - 130 mg/dL AO ADM SS Triglyceride [Mass/Vol] 107 mg/dL Invalid Interpretation Code 0 - 150 mg/dL AO ADM SS LABORATORYOrdered By: SYSTEM SYSTEM on 03-08-2023 Lactate [Moles/Vol] 1.1 mmol/L Invalid Interpretation Code 0.4 - 2.0 mmol/L AO ADM SS LABORATORYOrdered By: Cynthia Garcia on 03-07-2023 Appearance (U) Clear (03/07/23 7:39 PM) Invalid Interpretation Code Clear AO Auto Urine SS Bilirubin Ql (U) Negative (03/07/23 7:39 PM) Invalid Interpretation Code Negative AO Auto Urine SS Color (U) Yellow (03/07/23 7:39 PM) Invalid Interpretation Code AO Auto Urine SS Glucose Test strip (U) [Mass/Vol] Negative Invalid Interpretation Code Negativemg/d L AO Auto Urine SS HCG ( test) Ql Negative (03/07/23 7:39 PM) Invalid Interpretation Code AO Manual Urine SS Hemoglobin Auto test strip (U) [Mass/Vol] Negative (03/07/23 7:39 PM) Invalid Interpretation Code Negative AO Auto Urine SS Ketones Ql (U) Negative Invalid Interpretation Code Negativemg/d L AO Auto Urine SS Monocyte distribution width Auto (Bld) [Entitic vol] 18.72 Invalid Interpretation Code 0.00 - 20.00 AO Workflow SS Comment on above: Result Comment: For ED adult patients suspected of sepsis, MDW<=20.0 does not rule out sepsis or risk of sepsis test (u) int Not detected Invalid Interpretation Code AO Manual Urine SS UA Leuk Est Negative (03/07/23 7:39 PM) Invalid Interpretation Code Negative AO Auto Urine SS UA Nitrite Negative (03/07/23 7:39 PM) Invalid Interpretation Code Negative AO Auto Urine SS UA pH 5.0 (03/07/23 7:39 PM) Invalid Interpretation Code 5.0 - 8.0 AO Auto Urine SS UA Protein Negative Invalid Interpretation Code Negativemg/d L AO Auto Urine SS UA Spec Grav 1.025 (03/07/23 7:39 PM) Invalid Interpretation Code 1.015-1.025 AO Auto Urine SS UA Specimen Type Clean Catch (03/07/23 7:39 PM) Invalid Interpretation Code AO Auto Urine SS UA Urobilinogen 0.2 E.U./dL Invalid Interpretation Code 0.2-1.0E.U./ dL AO Auto Urine SS LABORATORYOrdered By: SYSTEM SYSTEM on 03-07-2023 CK [Catalytic activity/Vol] 33 U/L Invalid Interpretation Code 7 - 185 U/L ADM SS Troponin I.cardiac DL <= 0.01 ng/mL [Mass/Vol] 4.2 ng/L Invalid Interpretation Code 0.0 - 51.4 ng/L AO ADM SS LABORATORYOrdered By: Von Alonso on 03-07-2023 CK.MB [Mass/Vol] Not performed Invalid Interpretation Code 0.00 - 5.00 Chemistry S Comment on above: Result Comment: CKMB result not performed when CPK < 75 Free T4 index Calc [Mass/Vol] Not Valid Invalid Interpretation Code 0.0 - 4.5 Chemistry S Comment on above: Result Comment: CPK <185 invalidates relative index No Panel Informationon 03-07 Culture Urine 10,000 - 50,000 cfu/ ml Multiple bacterial morphotypes present. Probable Contamination. Suggest recollection if clinically indicated. [facility] LABORATORYOrdered By: Cynthia Garcia on 01-25-2023 Acetaminophen [Mass/Vol] mcg/mL Invalid Interpretation Code 10.0 - 30.0 mcg/mL AO Chemistry S Ethanol [Mass/Vol] mg/dL Invalid Interpretation Code 0 - 3 mg/dL AO Chemistry S Cholesterol [Mass/Vol] 299 mg/dL Invalid Interpretation Code 0 - 200 mg/dL AO ADM SS Cholesterol in HDL [Mass/Vol] 47 mg/dL Invalid Interpretation Code 40 - 60 mg/dL AO ADM SS LDL Cholesterol Not Valid Invalid Interpretation Code 0 - 130 AO ADM SS Comment on above: Result Comment: Trig lyceride >400 invalidates the calculated LDL. Triglyceride [Mass/Vol] 448 mg/dL Invalid Interpretation Code 0 - 150 mg/dL AO ADM SS LABORATORYOrdered By: Bessy Bhatti on 01-25-2023 Amphetamines Screen Ql (U) Negative (01/25/23 12:29 PM) Invalid Interpretation Code AO Manual Urine SS Barbiturates Screen Ql (U) Positive (01/25/23 12:29 PM) Invalid Interpretation Code AO Manual Urine SS Benzodiazepines Ql (U) Negative (01/25/23 12:29 PM) Invalid Interpretation Code AO Manual Urine SS Benzoylecgonine Screen Ql (U) Negative (01/25/23 12:29 PM) Invalid Interpretation Code AO Manual Urine SS Cannabinoids tested Screen Nom (U) Positive (01/25/23 12:29 PM) Invalid Interpretation Code AO Manual Urine SS Methadone Screen Ql (U) Negative (01/25/23 12:29 PM) Invalid Interpretation Code AO Manual Urine SS Opiates Screen Ql (U) Negative (01/25/23 12:29 PM) Invalid Interpretation Code AO Manual Urine SS Phencyclidine Ql (U) Positive (01/25/23 12:29 PM) Invalid Interpretation Code AO Manual Urine SS Tricyclic antidepressants Screen Ql (U) Negative (01/25/23 12:29 PM) Invalid Interpretation Code AO Manual Urine SS LABORATORYOrdered By: SYSTEM SYSTEM on 01-25-2023 Lactate [Moles/Vol] 1.0 mmol/L Invalid Interpretation Code 0.4 - 2.0 mmol/L AO ADM SS Albumin BCP dye [Mass/Vol] 4.4 G/dL Invalid Interpretation Code 3.5 - 5.0 G/dL AO ADM SS Albumin/Globulin [Mass ratio] 1.3 {ratio} Invalid Interpretation Code 1.1 - 2.5 ratio AO ADM SS ALP [Catalytic activity/Vol] 135 U/L Invalid Interpretation Code 40 - 135 U/L AO ADM SS ALT With P-5'-P [Catalytic activity/Vol] 92 U/L Invalid Interpretation Code 14 - 59 U/L AO ADM SS Amylase [Catalytic activity/Vol] 76 U/L Invalid Interpretation Code 25 - 115 U/L AO ADM SS AST With P-5'-P [Catalytic activity/Vol] 48 U/L Invalid Interpretation Code 10 - 40 U/L AO ADM SS Bilirubin [Mass/Vol] 0.4 mg/dL Invalid Interpretation Code 0.2 - 1.0 mg/dL AO ADM SS Calcium [Mass/Vol] 9.8 mg/dL Invalid Interpretation Code 8.4 - 10.2 mg/dL AO ADM SS Chloride [Moles/Vol] 96 mmol/L Invalid Interpretation Code 98 - 107 mmol/L AO ADM SS CO2 [Moles/Vol] 26 mmol/L Invalid Interpretation Code 22 - 29 mmol/L AO ADM SS Creatinine [Mass/Vol] 1.04 mg/dL Invalid Interpretation Code 0.55 - 1.02 mg/dL AO ADM SS Electrolyte Balance 15.0 mEq/L Invalid Interpretation Code 4.0 - 15.0 mEq/L AO ADM SS GFR/1.73 sq M.predicted among blacks MDRD (S/P/Bld) [Vol rate/Area] 69 ml/min/1.73sqm Invalid Interpretation Code AO Chemistry S GFR/1.73 sq M.predicted among non-blacks MDRD (S/P/Bld) [Vol rate/Area] 57 ml/min/1.73sqm Invalid Interpretation Code AO Chemistry S Globulin 3.4 G/dL Invalid Interpretation Code AO ADM SS Glucose [Mass/Vol] 113 mg/dL Invalid Interpretation Code 70 - 105 mg/dL AO ADM SS Lipase [Catalytic activity/Vol] 16 U/L Invalid Interpretation Code 16 - 77 U/L AO ADM SS Magnesium [Mass/Vol] 1.8 mg/dL Invalid Interpretation Code 1.8 - 2.4 mg/dL AO ADM SS Potassium [Moles/Vol] 3.7 mmol/L Invalid Interpretation Code 3.5 - 5.1 mmol/L AO ADM SS Protein [Mass/Vol] 7.8 G/dL Invalid Interpretation Code 6.4 - 8.2 G/dL AO ADM SS Sodium [Moles/Vol] 137 mmol/L Invalid Interpretation Code 136 - 145 mmol/L AO ADM SS Urea nitrogen [Mass/Vol] 17 mg/dL Invalid Interpretation Code 7 - 18 mg/dL AO ADM SS Urea nitrogen/Creatinine [Mass ratio] 16 ratio Invalid Interpretation Code 7 - 27 ratio AO ADM SS LABORATORYOrdered By: Reny Prakash on 01-25-2023 Appearance (U) Slightly Cloudy *ABN* (01/25/23 10:47 AM) Invalid Interpretation Code Clear AO Auto Urine SS Basophil, Absolute 0.1 103/mcL Invalid Interpretation Code 0.0 - 0.2 10^3/mcL AO Hematology S Basophils/100 WBC (Bld) 0.7 % Invalid Interpretation Code 0.0 - 2.5 % AO Hematology S Bilirubin Ql (U) Negative (01/25/23 10:47 AM) Invalid Interpretation Code Negative AO Auto Urine SS Color (U) Yellow (01/25/23 10:47 AM) Invalid Interpretation Code AO Auto Urine SS Eosinophil, Absolute 0.1 103/mcL Invalid Interpretation Code 0.0 - 0.4 10^3/mcL AO Hematology S Eosinophils/100 WBC (Bld) 0.9 % Invalid Interpretation Code 0.0 - 7.0 % AO Hematology S Erythrocyte distribution width (RBC) [Ratio] 13.2 % Invalid Interpretation Code 11.5 - 14.5 % AO Hematology S Glucose Test strip (U) [Mass/Vol] Negative Invalid Interpretation Code Negativemg/d L AO Auto Urine SS HCG ( test) Ql Negative (01/25/23 10:47 AM) Invalid Interpretation Code AO Manual Urine SS Hematocrit (Bld) [Volume fraction] 44.2 % Invalid Interpretation Code 37.0 - 47.0 % AO Hematology S Hemoglobin (Bld) [Mass/Vol] 15.0 G/dL Invalid Interpretation Code 12.0 - 16.0 G/dL AO Hematology S Hemoglobin Auto test strip (U) [Mass/Vol] Trace *ABN* (01/25/23 10:47 AM) Invalid Interpretation Code Negative AO Auto Urine SS Ketones Ql (U) Negative Invalid Interpretation Code Negativemg/d L AO Auto Urine SS Lymphocyte, Absolute 2.5 103/mcL Invalid Interpretation Code 0.8 - 3.9 10^3/mcL AO Hematology S Lymphocytes/100 WBC (Bld) 21.8 % Invalid Interpretation Code 10.0 - 50.0 % AO Hematology S MCH (RBC) [Entitic mass] 30.8 pg Invalid Interpretation Code 27.0 - 31.2 pg AO Hematology S MCHC 33.9 G/dL Invalid Interpretation Code 33.0 - 37.0 G/dL AO Hematology S MCV (RBC) [Entitic vol] 90.8 fL Invalid Interpretation Code 80.0 - 94.0 fL AO Hematology S Monocyte, Absolute 0.6 103/mcL Invalid Interpretation Code 0.2 - 1.0 10^3/mcL AO Hematology S Monocytes/100 WBC (Bld) 5.7 % Invalid Interpretation Code 1.7 - 13.0 % AO Hematology S Neutrophil, Absolute 8.2 103/mcL Invalid Interpretation Code 2.9 - 6.2 10^3/mcL AO Hematology S Neutrophils/100 WBC (Bld) 70.9 % Invalid Interpretation Code 37.0 - 80.0 % AO Hematology S Platelet mean volume (Bld) [Entitic vol] 6.7 fL Invalid Interpretation Code 7.4 - 10.4 fL AO Hematology S Platelets (Bld) [#/Vol] 373 103/mcL Invalid Interpretation Code 130 - 400 10^3/mcL AO Hematology S test (u) int Not detected Invalid Interpretation Code AO Manual Urine SS RBC (Bld) [#/Vol] 4.87 106/mcL Invalid Interpretation Code 4.20 - 5.40 10^6/mcL AO Hematology S UA Leuk Est Negative (01/25/23 10:47 AM) Invalid Interpretation Code Negative AO Auto Urine SS UA Mucous Trace /HPF Invalid Interpretation Code AO Auto Urine SS UA Nitrite Negative (01/25/23 10:47 AM) Invalid Interpretation Code Negative AO Auto Urine SS UA pH 5.5 (01/25/23 10:47 AM) Invalid Interpretation Code 5.0 - 8.0 AO Auto Urine SS UA Protein Negative Invalid Interpretation Code Negativemg/d L AO Auto Urine SS UA RBC 0-5 /HPF Invalid Interpretation Code None Seen/HPF AO Auto Urine SS UA Spec Grav 1.010 *ABN* (01/25/23 10:47 AM) Invalid Interpretation Code 1.015-1.025 AO Auto Urine SS UA Specimen Type Clean Catch (01/25/23 10:47 AM) Invalid Interpretation Code AO Auto Urine SS UA Squam Epithelial 0-5 /HPF Invalid Interpretation Code None Seen/HPF AO Auto Urine SS UA Urobilinogen 0.2 E.U./dL Invalid Interpretation Code 0.2-1.0E.U./ dL AO Auto Urine SS WBC (Bld) [#/Vol] 11.5 103/mcL Invalid Interpretation Code 4.6 - 10.8 10^3/mcL AO Hematology S WBC LM.HPF (Urine sed) [#/Area] None Seen /HPF Invalid Interpretation Code None Seen/HPF AO Auto Urine SS LABORATORYOrdered By: Sheyla Hernandez on 01-25-2023 Monocyte distribution width Auto (Bld) [Entitic vol] Not Performed (01/25/23 10:47 AM) Invalid Interpretation Code 0.00 - 20.00 AO Hematology S LABORATORYOrdered By: SYSTEM SYSTEM on 01-24-2023 25-hydroxyvitamin D3 [Mass/Vol] 57.2 ng/mL Invalid Interpretation Code AO ADM SS Albumin BCP dye [Mass/Vol] 5.0 G/dL Invalid Interpretation Code 3.5 - 5.0 G/dL AO ADM SS Albumin/Globulin [Mass ratio] 1.5 {ratio} Invalid Interpretation Code 1.1 - 2.5 ratio AO ADM SS ALP [Catalytic activity/Vol] 152 U/L Invalid Interpretation Code 40 - 135 U/L AO ADM SS ALT With P-5'-P [Catalytic activity/Vol] 110 U/L Invalid Interpretation Code 14 - 59 U/L AO ADM SS Amylase [Catalytic activity/Vol] 37 U/L Invalid Interpretation Code 25 - 115 U/L AO ADM SS AST With P-5'-P [Catalytic activity/Vol] 48 U/L Invalid Interpretation Code 10 - 40 U/L AO ADM SS Bilirubin [Mass/Vol] 0.4 mg/dL Invalid Interpretation Code 0.2 - 1.0 mg/dL AO ADM SS Calcium [Mass/Vol] 10.4 mg/dL Invalid Interpretation Code 8.4 - 10.2 mg/dL AO ADM SS Chloride [Moles/Vol] 94 mmol/L Invalid Interpretation Code 98 - 107 mmol/L AO ADM SS CO2 [Moles/Vol] 26 mmol/L Invalid Interpretation Code 22 - 29 mmol/L AO ADM SS Creatinine [Mass/Vol] 1.32 mg/dL Invalid Interpretation Code 0.55 - 1.02 mg/dL AO ADM SS Electrolyte Balance 18.0 mEq/L Invalid Interpretation Code 4.0 - 15.0 mEq/L AO ADM SS GFR/1.73 sq M.predicted among blacks MDRD (S/P/Bld) [Vol rate/Area] 52 ml/min/1.73sqm Invalid Interpretation Code AO Chemistry S GFR/1.73 sq M.predicted among non-blacks MDRD (S/P/Bld) [Vol rate/Area] 43 ml/min/1.73sqm Invalid Interpretation Code AO Chemistry S Globulin 3.4 G/dL Invalid Interpretation Code AO ADM SS Glucose [Mass/Vol] 115 mg/dL Invalid Interpretation Code 70 - 105 mg/dL AO ADM SS Lipase [Catalytic activity/Vol] 18 U/L Invalid Interpretation Code 16 - 77 U/L AO ADM SS Potassium [Moles/Vol] 3.7 mmol/L Invalid Interpretation Code 3.5 - 5.1 mmol/L AO ADM SS Protein [Mass/Vol] 8.4 G/dL Invalid Interpretation Code 6.4 - 8.2 G/dL AO ADM SS Sodium [Moles/Vol] 138 mmol/L Invalid Interpretation Code 136 - 145 mmol/L AO ADM SS Urea nitrogen [Mass/Vol] 13 mg/dL Invalid Interpretation Code 7 - 18 mg/dL AO ADM SS Urea nitrogen/Creatinine [Mass ratio] 10 ratio Invalid Interpretation Code 7 - 27 ratio AO ADM SS LABORATORYOrdered By: Cynthia Lucia on 12-06-2022 Basophil, Absolute 0.1 103/mcL Invalid Interpretation Code 0.0 - 0.2 10^3/mcL AO Workflow SS Basophils/100 WBC (Bld) 1.1 % Invalid Interpretation Code 0.0 - 2.5 % AO Workflow SS Eosinophil, Absolute 0.2 103/mcL Invalid Interpretation Code 0.0 - 0.4 10^3/mcL AO Workflow SS Eosinophils/100 WBC (Bld) 2.4 % Invalid Interpretation Code 0.0 - 7.0 % AO Workflow SS Erythrocyte distribution width (RBC) [Ratio] 13.5 % Invalid Interpretation Code 11.5 - 14.5 % AO Workflow SS Hematocrit (Bld) [Volume fraction] 39.8 % Invalid Interpretation Code 37.0 - 47.0 % AO Workflow SS Hemoglobin (Bld) [Mass/Vol] 13.5 G/dL Invalid Interpretation Code 12.0 - 16.0 G/dL AO Workflow SS Lymphocyte, Absolute 3.3 103/mcL Invalid Interpretation Code 0.8 - 3.9 10^3/mcL AO Workflow SS Lymphocytes/100 WBC (Bld) 41.8 % Invalid Interpretation Code 10.0 - 50.0 % AO Workflow SS MCH (RBC) [Entitic mass] 30.8 pg Invalid Interpretation Code 27.0 - 31.2 pg AO Workflow SS MCHC 33.9 G/dL Invalid Interpretation Code 33.0 - 37.0 G/dL AO Workflow SS MCV (RBC) [Entitic vol] 91.0 fL Invalid Interpretation Code 80.0 - 94.0 fL AO Workflow SS Monocyte distribution width Auto (Bld) [Entitic vol] 22.71 Invalid Interpretation Code 0.00 - 20.00 AO Workflow SS Comment on above: Result Comment: For adults in ED, MDW>20.0 may be associated with a higher risk of sepsis during the first 12hrs of hospital admission Monocyte, Absolute 0.5 103/mcL Invalid Interpretation Code 0.2 - 1.0 10^3/mcL AO Workflow SS Monocytes/100 WBC (Bld) 6.0 % Invalid Interpretation Code 1.7 - 13.0 % AO Workflow SS Neutrophil, Absolute 3.8 103/mcL Invalid Interpretation Code 2.9 - 6.2 10^3/mcL AO Workflow SS Neutrophils/100 WBC (Bld) 48.7 % Invalid Interpretation Code 37.0 - 80.0 % AO Workflow SS Platelet mean volume (Bld) [Entitic vol] 6.4 fL Invalid Interpretation Code 7.4 - 10.4 fL AO Workflow SS Platelets (Bld) [#/Vol] 358 103/mcL Invalid Interpretation Code 130 - 400 10^3/mcL AO Workflow SS RBC (Bld) [#/Vol] 4.38 106/mcL Invalid Interpretation Code 4.20 - 5.40 10^6/mcL AO Workflow SS WBC (Bld) [#/Vol] 7.8 103/mcL Invalid Interpretation Code 4.6 - 10.8 10^3/mcL AO Workflow SS LABORATORYOrdered By: SYSTEM SYSTEM on 12-06-2022 Calcium [Mass/Vol] 9.0 mg/dL Invalid Interpretation Code 8.4 - 10.2 mg/dL AO ADM SS Chloride [Moles/Vol] 105 mmol/L Invalid Interpretation Code 98 - 107 mmol/L AO ADM SS CO2 [Moles/Vol] 27 mmol/L Invalid Interpretation Code 22 - 29 mmol/L AO ADM SS Creatinine [Mass/Vol] 0.86 mg/dL Invalid Interpretation Code 0.55 - 1.02 mg/dL AO ADM SS Electrolyte Balance 10.0 mEq/L Invalid Interpretation Code 4.0 - 15.0 mEq/L AO ADM SS GFR 86 ml/min/1.73sqm Invalid Interpretation Code AO Chemistry S GFR Non- 71 ml/min/1.73sqm Invalid Interpretation Code AO Chemistry S Glucose [Mass/Vol] 113 mg/dL Invalid Interpretation Code 70 - 105 mg/dL AO ADM SS Natriuretic peptide.B prohormone N-Terminal [Mass/Vol] 48 pg/mL Invalid Interpretation Code 0 - 125 pg/mL AO ADM SS Potassium [Moles/Vol] 3.8 mmol/L Invalid Interpretation Code 3.5 - 5.1 mmol/L AO ADM SS Sodium [Moles/Vol] 142 mmol/L Invalid Interpretation Code 136 - 145 mmol/L AO ADM SS Troponin I.cardiac DL <= 0.01 ng/mL [Mass/Vol] 4.3 ng/L Invalid Interpretation Code 0.0 - 51.4 ng/L AO ADM SS Urea nitrogen [Mass/Vol] 15 mg/dL Invalid Interpretation Code 7 - 18 mg/dL AO ADM SS Urea nitrogen/Creatinine [Mass ratio] 17 ratio Invalid Interpretation Code 7 - 27 ratio AO ADM SS LABORATORYOrdered By: SYSTEM SYSTEM on 11-13-2022 Albumin BCP dye [Mass/Vol] 3.9 G/dL Invalid Interpretation Code 3.5 - 5.0 G/dL AO ADM SS Albumin/Globulin [Mass ratio] 1.3 {ratio} Invalid Interpretation Code 1.1 - 2.5 ratio AO ADM SS ALP [Catalytic activity/Vol] 140 U/L Invalid Interpretation Code 40 - 135 U/L AO ADM SS ALT With P-5'-P [Catalytic activity/Vol] 92 U/L Invalid Interpretation Code 14 - 59 U/L AO ADM SS AST With P-5'-P [Catalytic activity/Vol] 45 U/L Invalid Interpretation Code 10 - 40 U/L AO ADM SS Bilirubin [Mass/Vol] 0.2 mg/dL Invalid Interpretation Code 0.2 - 1.0 mg/dL AO ADM SS Calcium [Mass/Vol] 8.5 mg/dL Invalid Interpretation Code 8.4 - 10.2 mg/dL AO ADM SS Chloride [Moles/Vol] 103 mmol/L Invalid Interpretation Code 98 - 107 mmol/L AO ADM SS CO2 [Moles/Vol] 25 mmol/L Invalid Interpretation Code 22 - 29 mmol/L AO ADM SS Creatinine [Mass/Vol] 1.00 mg/dL Invalid Interpretation Code 0.55 - 1.02 mg/dL AO ADM SS Electrolyte Balance 14.0 mEq/L Invalid Interpretation Code 4.0 - 15.0 mEq/L AO ADM SS GFR 72 ml/min/1.73sqm Invalid Interpretation Code AO Chemistry S GFR Non- 59 ml/min/1.73sqm Invalid Interpretation Code AO Chemistry S Globulin 3.0 G/dL Invalid Interpretation Code AO ADM SS Glucose [Mass/Vol] 147 mg/dL Invalid Interpretation Code 70 - 105 mg/dL AO ADM SS Potassium [Moles/Vol] 3.6 mmol/L Invalid Interpretation Code 3.5 - 5.1 mmol/L AO ADM SS Protein [Mass/Vol] 6.9 G/dL Invalid Interpretation Code 6.4 - 8.2 G/dL AO ADM SS Sodium [Moles/Vol] 142 mmol/L Invalid Interpretation Code 136 - 145 mmol/L AO ADM SS Urea nitrogen [Mass/Vol] 14 mg/dL Invalid Interpretation Code 7 - 18 mg/dL AO ADM SS Urea nitrogen/Creatinine [Mass ratio] 14 ratio Invalid Interpretation Code 7 - 27 ratio AO ADM SS LABORATORYOrdered By: Cynthia Garcia on 11-13-2022 Appearance (U) Cloudy *ABN* (11/13/22 3:16 PM) Invalid Interpretation Code Clear AO Auto Urine SS Bacteria LM.HPF (Urine sed) [#/Area] 4 /[HPF] Invalid Interpretation Code AO Auto Urine SS Basophil, Absolute 0.1 103/mcL Invalid Interpretation Code 0.0 - 0.2 10^3/mcL AO Workflow SS Basophils/100 WBC (Bld) 0.9 % Invalid Interpretation Code 0.0 - 2.5 % AO Workflow SS Bilirubin Ql (U) Negative (11/13/22 3:16 PM) Invalid Interpretation Code Negative AO Auto Urine SS Color (U) Yellow (11/13/22 3:16 PM) Invalid Interpretation Code AO Auto Urine SS Eosinophil, Absolute 0.2 103/mcL Invalid Interpretation Code 0.0 - 0.4 10^3/mcL AO Workflow SS Eosinophils/100 WBC (Bld) 1.9 % Invalid Interpretation Code 0.0 - 7.0 % AO Workflow SS Erythrocyte distribution width (RBC) [Ratio] 13.6 % Invalid Interpretation Code 11.5 - 14.5 % AO Workflow SS Glucose Test strip (U) [Mass/Vol] Negative Invalid Interpretation Code Negativemg/d L AO Auto Urine SS Hematocrit (Bld) [Volume fraction] 39.2 % Invalid Interpretation Code 37.0 - 47.0 % AO Workflow SS Hemoglobin (Bld) [Mass/Vol] 13.2 G/dL Invalid Interpretation Code 12.0 - 16.0 G/dL AO Workflow SS Hemoglobin Auto test strip (U) [Mass/Vol] Negative (11/13/22 3:16 PM) Invalid Interpretation Code Negative AO Auto Urine SS Ketones Ql (U) Trace mg/dL Invalid Interpretation Code Negativemg/d L AO Auto Urine SS Lymphocyte, Absolute 2.1 103/mcL Invalid Interpretation Code 0.8 - 3.9 10^3/mcL AO Workflow SS Lymphocytes/100 WBC (Bld) 23.3 % Invalid Interpretation Code 10.0 - 50.0 % AO Workflow SS MCH (RBC) [Entitic mass] 30.8 pg Invalid Interpretation Code 27.0 - 31.2 pg AO Workflow SS MCHC 33.6 G/dL Invalid Interpretation Code 33.0 - 37.0 G/dL AO Workflow SS MCV (RBC) [Entitic vol] 91.6 fL Invalid Interpretation Code 80.0 - 94.0 fL AO Workflow SS Monocyte distribution width Auto (Bld) [Entitic vol] 17.01 Invalid Interpretation Code 0.00 - 20.00 AO Workflow SS Comment on above: Result Comment: For ED adult patients suspected of sepsis, MDW<=20.0 does not rule out sepsis or risk of sepsis Monocyte, Absolute 0.4 103/mcL Invalid Interpretation Code 0.2 - 1.0 10^3/mcL AO Workflow SS Monocytes/100 WBC (Bld) 4.8 % Invalid Interpretation Code 1.7 - 13.0 % AO Workflow SS Neutrophil, Absolute 6.1 103/mcL Invalid Interpretation Code 2.9 - 6.2 10^3/mcL AO Workflow SS Neutrophils/100 WBC (Bld) 69.1 % Invalid Interpretation Code 37.0 - 80.0 % AO Workflow SS Platelet mean volume (Bld) [Entitic vol] 6.2 fL Invalid Interpretation Code 7.4 - 10.4 fL AO Workflow SS Platelets (Bld) [#/Vol] 359 103/mcL Invalid Interpretation Code 130 - 400 10^3/mcL AO Workflow SS RBC (Bld) [#/Vol] 4.28 106/mcL Invalid Interpretation Code 4.20 - 5.40 10^6/mcL AO Workflow SS UA Leuk Est Negative (11/13/22 3:16 PM) Invalid Interpretation Code Negative AO Auto Urine SS UA Nitrite Negative (11/13/22 3:16 PM) Invalid Interpretation Code Negative AO Auto Urine SS UA pH 5.5 (11/13/22 3:16 PM) Invalid Interpretation Code 5.0 - 8.0 AO Auto Urine SS UA Protein Negative Invalid Interpretation Code Negativemg/d L AO Auto Urine SS UA RBC 0-5 /HPF Invalid Interpretation Code None Seen/HPF AO Auto Urine SS UA Spec Grav >=1.030 *ABN* (11/13/22 3:16 PM) Invalid Interpretation Code 1.015-1.025 AO Auto Urine SS UA Specimen Type Void (11/13/22 3:16 PM) Invalid Interpretation Code AO Auto Urine SS UA Squam Epithelial LOADED /HPF Invalid Interpretation Code None Seen/HPF AO Auto Urine SS UA Urobilinogen 0.2 E.U./dL Invalid Interpretation Code 0.2-1.0E.U./ dL AO Auto Urine SS WBC (Bld) [#/Vol] 8.8 103/mcL Invalid Interpretation Code 4.6 - 10.8 10^3/mcL AO Workflow SS WBC LM.HPF (Urine sed) [#/Area] 0-5 /HPF Invalid Interpretation Code None Seen/HPF AO Auto Urine SS LABORATORYOrdered By: Kiarra Jacobo on 11-12-2022 Basophil, Absolute 0.1 103/mcL Invalid Interpretation Code 0.0 - 0.2 10^3/mcL AO Workflow SS Basophils/100 WBC (Bld) 1.0 % Invalid Interpretation Code 0.0 - 2.5 % AO Workflow SS Eosinophil, Absolute 0.3 103/mcL Invalid Interpretation Code 0.0 - 0.4 10^3/mcL AO Workflow SS Eosinophils/100 WBC (Bld) 3.0 % Invalid Interpretation Code 0.0 - 7.0 % AO Workflow SS Erythrocyte distribution width (RBC) [Ratio] 13.9 % Invalid Interpretation Code 11.5 - 14.5 % AO Workflow SS Fibrin D-dimer DDU (PPP) [Mass/Vol] ng/mL D-DU Invalid Interpretation Code 0 - 230 ng/mL D-DU AO HemoHub SS Hematocrit (Bld) [Volume fraction] 41.6 % Invalid Interpretation Code 37.0 - 47.0 % AO Workflow SS Hemoglobin (Bld) [Mass/Vol] 14.0 G/dL Invalid Interpretation Code 12.0 - 16.0 G/dL AO Workflow SS Lymphocyte, Absolute 3.7 103/mcL Invalid Interpretation Code 0.8 - 3.9 10^3/mcL AO Workflow SS Lymphocytes/100 WBC (Bld) 39.8 % Invalid Interpretation Code 10.0 - 50.0 % AO Workflow SS MCH (RBC) [Entitic mass] 30.9 pg Invalid Interpretation Code 27.0 - 31.2 pg AO Workflow SS MCHC 33.6 G/dL Invalid Interpretation Code 33.0 - 37.0 G/dL AO Workflow SS MCV (RBC) [Entitic vol] 92.0 fL Invalid Interpretation Code 80.0 - 94.0 fL AO Workflow SS Monocyte distribution width Auto (Bld) [Entitic vol] 17.95 Invalid Interpretation Code 0.00 - 20.00 AO Workflow SS Comment on above: Result Comment: For ED adult patients suspected of sepsis, MDW<=20.0 does not rule out sepsis or risk of sepsis Monocyte, Absolute 0.6 103/mcL Invalid Interpretation Code 0.2 - 1.0 10^3/mcL AO Workflow SS Monocytes/100 WBC (Bld) 6.5 % Invalid Interpretation Code 1.7 - 13.0 % AO Workflow SS Neutrophil, Absolute 4.6 103/mcL Invalid Interpretation Code 2.9 - 6.2 10^3/mcL AO Workflow SS Neutrophils/100 WBC (Bld) 49.7 % Invalid Interpretation Code 37.0 - 80.0 % AO Workflow SS Platelet mean volume (Bld) [Entitic vol] 6.6 fL Invalid Interpretation Code 7.4 - 10.4 fL AO Workflow SS Platelets (Bld) [#/Vol] 377 103/mcL Invalid Interpretation Code 130 - 400 10^3/mcL AO Workflow SS RBC (Bld) [#/Vol] 4.52 106/mcL Invalid Interpretation Code 4.20 - 5.40 10^6/mcL AO Workflow SS WBC (Bld) [#/Vol] 9.3 103/mcL Invalid Interpretation Code 4.6 - 10.8 10^3/mcL AO Workflow SS LABORATORYOrdered By: SYSTEM SYSTEM on 11-12-2022 Calcium [Mass/Vol] 9.2 mg/dL Invalid Interpretation Code 8.4 - 10.2 mg/dL AO ADM SS Chloride [Moles/Vol] 100 mmol/L Invalid Interpretation Code 98 - 107 mmol/L AO ADM SS CO2 [Moles/Vol] 27 mmol/L Invalid Interpretation Code 22 - 29 mmol/L AO ADM SS Creatinine [Mass/Vol] 0.72 mg/dL Invalid Interpretation Code 0.55 - 1.02 mg/dL AO ADM SS Electrolyte Balance 10.0 mEq/L Invalid Interpretation Code 4.0 - 15.0 mEq/L AO ADM SS GFR 105 ml/min/1.73sqm Invalid Interpretation Code AO Chemistry S GFR Non- 87 ml/min/1.73sqm Invalid Interpretation Code AO Chemistry S Glucose [Mass/Vol] 119 mg/dL Invalid Interpretation Code 70 - 105 mg/dL AO ADM SS Potassium [Moles/Vol] 4.1 mmol/L Invalid Interpretation Code 3.5 - 5.1 mmol/L AO ADM SS Sodium [Moles/Vol] 137 mmol/L Invalid Interpretation Code 136 - 145 mmol/L AO ADM SS Troponin I.cardiac DL <= 0.01 ng/mL [Mass/Vol] ng/L Invalid Interpretation Code 0.0 - 51.4 ng/L AO ADM SS Urea nitrogen [Mass/Vol] 17 mg/dL Invalid Interpretation Code 7 - 18 mg/dL AO ADM SS Urea nitrogen/Creatinine [Mass ratio] 24 ratio Invalid Interpretation Code 7 - 27 ratio AO ADM SS LABORATORYOrdered By: SYSTEM SYSTEM on 10-19-2022 Troponin I.cardiac DL <= 0.01 ng/mL [Mass/Vol] ng/L Invalid Interpretation Code 0.00 - 34.00 ng/L AH ADM SS Troponin I.cardiac DL <= 0.01 ng/mL [Mass/Vol] ng/L Invalid Interpretation Code 0.00 - 34.00 ng/L AH ADM SS Albumin BCP dye [Mass/Vol] 4.3 G/dL Invalid Interpretation Code 3.2 - 4.8 G/dL ADM SS Albumin/Globulin [Mass ratio] 1.3 {ratio} Invalid Interpretation Code 0.9 - 1.6 ratio ADM SS ALP [Catalytic activity/Vol] 141 U/L Invalid Interpretation Code 38 - 126 U/L ADM SS ALT No additional P-5'-P [Catalytic activity/Vol] 65 U/L Invalid Interpretation Code 10 - 49 U/L ADM SS AST [Catalytic activity/Vol] U/L 1 Invalid Interpretation Code 8 - 34 U/L ADM SS Basophils (Bld) [#/Vol] 0.1 103/mcL Invalid Interpretation Code 0.0 - 0.3 10^3/mcL Workflow SS Basophils/100 WBC (Bld) 1.2 % Invalid Interpretation Code 0.0 - 2.5 % Workflow SS Bilirubin [Mass/Vol] 0.20 mg/dL Invalid Interpretation Code 0.20 - 1.20 mg/dL ADM SS Calcium [Mass/Vol] 9.9 mg/dL Invalid Interpretation Code 8.7 - 10.4 mg/dL ADM SS Chloride [Moles/Vol] 106 mmol/L Invalid Interpretation Code 98 - 110 mEq/L ADM SS CO2 [Moles/Vol] 26 mmol/L Invalid Interpretation Code 22 - 32 mEq/L ADM SS Creatinine [Mass/Vol] 0.65 mg/dL Invalid Interpretation Code 0.50 - 1.20 mg/dL ADM SS Electrolyte Balance 8.0 mEq/L Invalid Interpretation Code 4.0 - 15.0 mEq/L ADM SS Eosinophils (Bld) [#/Vol] 0.1 103/mcL Invalid Interpretation Code 0.0 - 0.7 10^3/mcL Workflow SS Eosinophils/100 WBC (Bld) 2.4 % Invalid Interpretation Code 0.0 - 6.0 % Workflow SS Erythrocyte distribution width (RBC) [Ratio] 13.6 % Invalid Interpretation Code 11.5 - 15.5 % Workflow SS GFR/1.73 sq M.predicted among blacks MDRD (S/P/Bld) [Vol rate/Area] ml/min/1.73sqm Invalid Interpretation Code ADM SS GFR/1.73 sq M.predicted among non-blacks MDRD (S/P/Bld) [Vol rate/Area] ml/min/1.73sqm Invalid Interpretation Code ADM SS Globulin 3.2 G/dL Invalid Interpretation Code 1.5 - 3.8 G/dL ADM SS Glucose [Mass/Vol] 121 mg/dL Invalid Interpretation Code 70 - 110 mg/dL ADM SS Hematocrit (Bld) [Volume fraction] 42.3 % Invalid Interpretation Code 34.0 - 46.0 % AH Workflow SS Hemoglobin (Bld) [Mass/Vol] 14.1 G/dL Invalid Interpretation Code 12.0 - 16.0 G/dL AH Workflow SS Lipase [Catalytic activity/Vol] 30 U/L Invalid Interpretation Code 12 - 53 U/L ADM SS Lymphocytes (Bld) [#/Vol] 2.1 103/mcL Invalid Interpretation Code 0.9 - 4.3 10^3/mcL AH Workflow SS Lymphocytes/100 WBC (Bld) 36.4 % Invalid Interpretation Code 20.0 - 40.0 % AH Workflow SS MCH (RBC) [Entitic mass] 30.6 pg Invalid Interpretation Code 27.0 - 33.0 pg AH Workflow SS MCHC 33.4 G/dL Invalid Interpretation Code 32.0 - 36.0 G/dL AH Workflow SS MCV (RBC) [Entitic vol] 91.8 fL Invalid Interpretation Code 80.0 - 99.0 fL AH Workflow SS Monocyte distribution width Auto (Bld) [Entitic vol] 16.62 Invalid Interpretation Code 0.00 - 20.00 Workflow SS Comment on above: Result Comment: For ED adult patients suspected of sepsis, MDW<=20.0 does not rule out sepsis or risk of sepsis Monocytes (Bld) [#/Vol] 0.4 103/mcL Invalid Interpretation Code 0.1 - 1.4 10^3/mcL AH Workflow SS Monocytes/100 WBC (Bld) 6.3 % Invalid Interpretation Code 2.0 - 13.0 % AH Workflow SS Neutrophils (Bld) [#/Vol] 3.1 103/mcL Invalid Interpretation Code 2.3 - 8.1 10^3/mcL AH Workflow SS Neutrophils/100 WBC (Bld) 53.7 % Invalid Interpretation Code 50.0 - 75.0 % AH Workflow SS Platelet mean volume (Bld) [Entitic vol] 6.7 fL Invalid Interpretation Code 6.6 - 10.5 fL AH Workflow SS Platelets (Bld) [#/Vol] 369 103/mcL Invalid Interpretation Code 150 - 450 10^3/mcL Workflow SS Potassium [Moles/Vol] 3.8 mmol/L Invalid Interpretation Code 3.5 - 5.0 mEq/L AH ADM SS Comment on above: Result Comment: Spec imen slightly hemolyzed. Protein [Mass/Vol] 7.5 G/dL Invalid Interpretation Code 5.7 - 8.2 G/dL AH ADM SS RBC (Bld) [#/Vol] 4.61 106/mcL Invalid Interpretation Code 4.10 - 5.30 10^6/mcL Workflow SS Sodium [Moles/Vol] 140 mmol/L Invalid Interpretation Code 136 - 145 mEq/L AH ADM SS Troponin I.cardiac DL <= 0.01 ng/mL [Mass/Vol] ng/L Invalid Interpretation Code 0.00 - 34.00 ng/L AH ADM SS Urea nitrogen [Mass/Vol] 12.0 mg/dL Invalid Interpretation Code 8.0 - 22.0 mg/dL ADM SS Urea nitrogen/Creatinine [Mass ratio] 18.5 ratio Invalid Interpretation Code 10.0 - 22.0 ratio AH ADM SS WBC (Bld) [#/Vol] 5.7 103/mcL Invalid Interpretation Code 4.5 - 10.8 10^3/mcL Workflow SS LABORATORYOrdered By: Bessy Mcgregor on 10-19-2022 Natriuretic peptide.B prohormone N-Terminal [Mass/Vol] 80 pg/mL Invalid Interpretation Code 0 - 450 pg/mL Auto Chem SS LABORATORYOrdered By: SYSTEM SYSTEM on 10-18-2022 HCG Qn 2.7 m[IU]/mL Invalid Interpretation Code AO ADM SS Albumin BCP dye [Mass/Vol] 4.2 G/dL Invalid Interpretation Code 3.5 - 5.0 G/dL AO ADM SS Albumin/Globulin [Mass ratio] 1.4 {ratio} Invalid Interpretation Code 1.1 - 2.5 ratio AO ADM SS ALP [Catalytic activity/Vol] 139 U/L Invalid Interpretation Code 40 - 135 U/L AO ADM SS ALT With P-5'-P [Catalytic activity/Vol] 80 U/L Invalid Interpretation Code 14 - 59 U/L AO ADM SS AST With P-5'-P [Catalytic activity/Vol] 42 U/L Invalid Interpretation Code 10 - 40 U/L AO ADM SS Bilirubin [Mass/Vol] 0.2 mg/dL Invalid Interpretation Code 0.2 - 1.0 mg/dL AO ADM SS Calcium [Mass/Vol] 9.3 mg/dL Invalid Interpretation Code 8.4 - 10.2 mg/dL AO ADM SS Chloride [Moles/Vol] 103 mmol/L Invalid Interpretation Code 98 - 107 mmol/L AO ADM SS CO2 [Moles/Vol] 28 mmol/L Invalid Interpretation Code 22 - 29 mmol/L AO ADM SS Creatinine [Mass/Vol] 0.82 mg/dL Invalid Interpretation Code 0.55 - 1.02 mg/dL AO ADM SS Electrolyte Balance 9.0 mEq/L Invalid Interpretation Code 4.0 - 15.0 mEq/L AO ADM SS GFR 91 ml/min/1.73sqm Invalid Interpretation Code AO Chemistry S GFR Non- 75 ml/min/1.73sqm Invalid Interpretation Code AO Chemistry S Globulin 2.9 G/dL Invalid Interpretation Code AO ADM SS Glucose [Mass/Vol] 108 mg/dL Invalid Interpretation Code 70 - 105 mg/dL AO ADM SS Lipase [Catalytic activity/Vol] 17 U/L Invalid Interpretation Code 16 - 77 U/L AO ADM SS Potassium [Moles/Vol] 3.7 mmol/L Invalid Interpretation Code 3.5 - 5.1 mmol/L AO ADM SS Protein [Mass/Vol] 7.1 G/dL Invalid Interpretation Code 6.4 - 8.2 G/dL AO ADM SS Sodium [Moles/Vol] 140 mmol/L Invalid Interpretation Code 136 - 145 mmol/L AO ADM SS Urea nitrogen [Mass/Vol] 11 mg/dL Invalid Interpretation Code 7 - 18 mg/dL AO ADM SS Urea nitrogen/Creatinine [Mass ratio] 13 ratio Invalid Interpretation Code 7 - 27 ratio AO ADM SS LABORATORYOrdered By: Cynthia Garcia on 10-18-2022 Basophil, Absolute 0.1 103/mcL Invalid Interpretation Code 0.0 - 0.2 10^3/mcL AO Workflow SS Basophils/100 WBC (Bld) 2.1 % Invalid Interpretation Code 0.0 - 2.5 % AO Workflow SS Eosinophil, Absolute 0.1 103/mcL Invalid Interpretation Code 0.0 - 0.4 10^3/mcL AO Workflow SS Eosinophils/100 WBC (Bld) 2.0 % Invalid Interpretation Code 0.0 - 7.0 % AO Workflow SS Erythrocyte distribution width (RBC) [Ratio] 13.6 % Invalid Interpretation Code 11.5 - 14.5 % AO Workflow SS Hematocrit (Bld) [Volume fraction] 39.1 % Invalid Interpretation Code 37.0 - 47.0 % AO Workflow SS Hemoglobin (Bld) [Mass/Vol] 13.2 G/dL Invalid Interpretation Code 12.0 - 16.0 G/dL AO Workflow SS Lymphocyte, Absolute 2.5 103/mcL Invalid Interpretation Code 0.8 - 3.9 10^3/mcL AO Workflow SS Lymphocytes/100 WBC (Bld) 46.9 % Invalid Interpretation Code 10.0 - 50.0 % AO Workflow SS MCH (RBC) [Entitic mass] 30.9 pg Invalid Interpretation Code 27.0 - 31.2 pg AO Workflow SS MCHC 33.8 G/dL Invalid Interpretation Code 33.0 - 37.0 G/dL AO Workflow SS MCV (RBC) [Entitic vol] 91.3 fL Invalid Interpretation Code 80.0 - 94.0 fL AO Workflow SS Monocyte distribution width Auto (Bld) [Entitic vol] 18.39 Invalid Interpretation Code 0.00 - 20.00 AO Workflow SS Comment on above: Result Comment: For ED adult patients suspected of sepsis, MDW<=20.0 does not rule out sepsis or risk of sepsis Monocyte, Absolute 0.3 103/mcL Invalid Interpretation Code 0.2 - 1.0 10^3/mcL AO Workflow SS Monocytes/100 WBC (Bld) 5.4 % Invalid Interpretation Code 1.7 - 13.0 % AO Workflow SS Neutrophil, Absolute 2.3 103/mcL Invalid Interpretation Code 2.9 - 6.2 10^3/mcL AO Workflow SS Neutrophils/100 WBC (Bld) 43.6 % Invalid Interpretation Code 37.0 - 80.0 % AO Workflow SS Platelet mean volume (Bld) [Entitic vol] 6.4 fL Invalid Interpretation Code 7.4 - 10.4 fL AO Workflow SS Platelets (Bld) [#/Vol] 329 103/mcL Invalid Interpretation Code 130 - 400 10^3/mcL AO Workflow SS RBC (Bld) [#/Vol] 4.28 106/mcL Invalid Interpretation Code 4.20 - 5.40 10^6/mcL AO Workflow SS WBC (Bld) [#/Vol] 5.3 103/mcL Invalid Interpretation Code 4.6 - 10.8 10^3/mcL AO Workflow SS LABORATORYOrdered By: Alberto Madden on 07-27-2022 Appearance (U) Clear (07/27/22 2:19 PM) Invalid Interpretation Code Clear AH Auto Urine SS Bilirubin Ql (U) Negative (07/27/22 2:19 PM) Invalid Interpretation Code Neg-Trace AH Auto Urine SS Color (U) Yellow (07/27/22 2:19 PM) Invalid Interpretation Code AH Auto Urine SS Glucose Test strip (U) [Mass/Vol] Negative Invalid Interpretation Code Negativemg/d L AH Auto Urine SS Hemoglobin Auto test strip (U) [Mass/Vol] Negative (07/27/22 2:19 PM) Invalid Interpretation Code Neg-Trace AH Auto Urine SS Ketones Ql (U) Negative Invalid Interpretation Code Neg-Tracemg/ dL AH Auto Urine SS UA Leuk Est Negative (07/27/22 2:19 PM) Invalid Interpretation Code Negative AH Auto Urine SS UA Nitrite Negative (07/27/22 2:19 PM) Invalid Interpretation Code Negative AH Auto Urine SS UA pH 6.0 (07/27/22 2:19 PM) Invalid Interpretation Code 5.0 - 8.0 AH Auto Urine SS UA Protein Negative Invalid Interpretation Code Negativemg/d L AH Auto Urine SS UA Spec Grav >=1.030 *ABN* (07/27/22 2:19 PM) Invalid Interpretation Code 1.006-1.029 AH Auto Urine SS UA Specimen Type Clean Catch (07/27/22 2:19 PM) Invalid Interpretation Code AH Auto Urine SS UA Urobilinogen 0.2 E.U./dL Invalid Interpretation Code 0.2-1.0E.U./ dL AH Auto Urine SS LABORATORYOrdered By: SYSTEM SYSTEM on 07-27-2022 Lipase [Catalytic activity/Vol] 24 U/L Invalid Interpretation Code 12 - 53 U/L AH ADM SS Albumin BCP dye [Mass/Vol] 4.6 G/dL Invalid Interpretation Code 3.2 - 4.8 G/dL AH ADM SS Albumin/Globulin [Mass ratio] 1.3 {ratio} Invalid Interpretation Code 0.9 - 1.6 ratio AH ADM SS ALP [Catalytic activity/Vol] 145 U/L Invalid Interpretation Code 38 - 126 U/L AH ADM SS ALT No additional P-5'-P [Catalytic activity/Vol] 75 U/L Invalid Interpretation Code 10 - 49 U/L AH ADM SS AST [Catalytic activity/Vol] 44 U/L Invalid Interpretation Code 8 - 34 U/L ADM SS Basophils (Bld) [#/Vol] 0.1 103/mcL Invalid Interpretation Code 0.0 - 0.3 10^3/mcL AH Workflow SS Basophils/100 WBC (Bld) 1.3 % Invalid Interpretation Code 0.0 - 2.5 % Workflow SS Bilirubin [Mass/Vol] 0.20 mg/dL Invalid Interpretation Code 0.20 - 1.20 mg/dL ADM SS Calcium [Mass/Vol] 9.9 mg/dL Invalid Interpretation Code 8.7 - 10.4 mg/dL ADM SS Chloride [Moles/Vol] 100 mmol/L Invalid Interpretation Code 98 - 110 mEq/L ADM SS CO2 [Moles/Vol] 26 mmol/L Invalid Interpretation Code 22 - 32 mEq/L ADM SS Creatinine [Mass/Vol] 0.64 mg/dL Invalid Interpretation Code 0.50 - 1.20 mg/dL ADM SS Electrolyte Balance 10.0 mEq/L Invalid Interpretation Code 4.0 - 15.0 mEq/L ADM SS Eosinophils (Bld) [#/Vol] 0.1 103/mcL Invalid Interpretation Code 0.0 - 0.7 10^3/mcL AH Workflow SS Eosinophils/100 WBC (Bld) 1.1 % Invalid Interpretation Code 0.0 - 6.0 % Workflow SS Erythrocyte distribution width (RBC) [Ratio] 13.0 % Invalid Interpretation Code 11.5 - 15.5 % Workflow SS GFR/1.73 sq M.predicted among blacks MDRD (S/P/Bld) [Vol rate/Area] ml/min/1.73sqm Invalid Interpretation Code ADM SS GFR/1.73 sq M.predicted among non-blacks MDRD (S/P/Bld) [Vol rate/Area] ml/min/1.73sqm Invalid Interpretation Code ADM SS Globulin 3.6 G/dL Invalid Interpretation Code 1.5 - 3.8 G/dL ADM SS Glucose [Mass/Vol] 127 mg/dL Invalid Interpretation Code 70 - 110 mg/dL ADM SS Hematocrit (Bld) [Volume fraction] 44.6 % Invalid Interpretation Code 34.0 - 46.0 % Workflow SS Hemoglobin (Bld) [Mass/Vol] 15.1 G/dL Invalid Interpretation Code 12.0 - 16.0 G/dL AH Workflow SS Lymphocytes (Bld) [#/Vol] 2.2 103/mcL Invalid Interpretation Code 0.9 - 4.3 10^3/mcL AH Workflow SS Lymphocytes/100 WBC (Bld) 24.6 % Invalid Interpretation Code 20.0 - 40.0 % AH Workflow SS MCH (RBC) [Entitic mass] 31.5 pg Invalid Interpretation Code 27.0 - 33.0 pg AH Workflow SS MCHC 34.0 G/dL Invalid Interpretation Code 32.0 - 36.0 G/dL AH Workflow SS MCV (RBC) [Entitic vol] 92.6 fL Invalid Interpretation Code 80.0 - 99.0 fL AH Workflow SS Monocyte distribution width Auto (Bld) [Entitic vol] 18.45 Invalid Interpretation Code 0.00 - 20.00 AH Workflow SS Comment on above: Result Comment: For ED adult patients suspected of sepsis, MDW<=20.0 does not rule out sepsis or risk of sepsis Monocytes (Bld) [#/Vol] 0.4 103/mcL Invalid Interpretation Code 0.1 - 1.4 10^3/mcL AH Workflow SS Monocytes/100 WBC (Bld) 4.6 % Invalid Interpretation Code 2.0 - 13.0 % AH Workflow SS Neutrophils (Bld) [#/Vol] 6.0 103/mcL Invalid Interpretation Code 2.3 - 8.1 10^3/mcL AH Workflow SS Neutrophils/100 WBC (Bld) 68.4 % Invalid Interpretation Code 50.0 - 75.0 % AH Workflow SS Platelet mean volume (Bld) [Entitic vol] 6.2 fL Invalid Interpretation Code 6.6 - 10.5 fL AH Workflow SS Platelets (Bld) [#/Vol] 399 103/mcL Invalid Interpretation Code 150 - 450 10^3/mcL AH Workflow SS Potassium [Moles/Vol] 3.7 mmol/L Invalid Interpretation Code 3.5 - 5.0 mEq/L AH ADM SS Comment on above: Result Comment: Spec imen slightly hemolyzed. Protein [Mass/Vol] 8.2 G/dL Invalid Interpretation Code 5.7 - 8.2 G/dL AH ADM SS RBC (Bld) [#/Vol] 4.81 106/mcL Invalid Interpretation Code 4.10 - 5.30 10^6/mcL AH Workflow SS Sodium [Moles/Vol] 136 mmol/L Invalid Interpretation Code 136 - 145 mEq/L ADM SS Urea nitrogen [Mass/Vol] 19.0 mg/dL Invalid Interpretation Code 8.0 - 22.0 mg/dL ADM SS Urea nitrogen/Creatinine [Mass ratio] 29.7 ratio Invalid Interpretation Code 10.0 - 22.0 ratio ADM SS WBC (Bld) [#/Vol] 8.8 103/mcL Invalid Interpretation Code 4.5 - 10.8 10^3/mcL Workflow SS LABORATORYOrdered By: Martha Butt on 07-27-2022 ABO and Rh group Nom (Bld) Blood group A Rh(D) negative Invalid Interpretation Code BB Auto SS Blood group antibody screen Ql NEG (07/27/22 9:43 AM) Invalid Interpretation Code BB Auto SS LABORATORYOrdered By: Danny Crespo on 07-27-2022 aPTT Coag (PPP) [Time] 26.4 s Invalid Interpretation Code 25.0 - 35.0 seconds Auto Coag SS Heparin dose (APTT) Unknown (07/27/22 9:43 AM) Invalid Interpretation Code Auto Coag SS INR Coag (PPP) [Relative time] 1.0 {INR} Invalid Interpretation Code Auto Coag SS PT Coag (PPP) [Time] 11.8 s Invalid Interpretation Code 9.0 - 14.9 seconds AH Auto Coag SS LABORATORYOrdered By: SYSTEM SYSTEM on 06-22-2022 Albumin BCP dye [Mass/Vol] 3.3 G/dL Invalid Interpretation Code 3.2 - 4.8 G/dL ADM SS Albumin/Globulin [Mass ratio] 1.2 {ratio} Invalid Interpretation Code 0.9 - 1.6 ratio ADM SS ALP [Catalytic activity/Vol] 155 U/L Invalid Interpretation Code 38 - 126 U/L ADM SS ALT No additional P-5'-P [Catalytic activity/Vol] 101 U/L Invalid Interpretation Code 10 - 49 U/L ADM SS AST [Catalytic activity/Vol] 26 U/L Invalid Interpretation Code 8 - 34 U/L ADM SS Basophils (Bld) [#/Vol] 0.1 103/mcL Invalid Interpretation Code 0.0 - 0.3 10^3/mcL Workflow SS Basophils/100 WBC (Bld) 1.3 % Invalid Interpretation Code 0.0 - 2.5 % Workflow SS Bilirubin [Mass/Vol] 0.30 mg/dL Invalid Interpretation Code 0.20 - 1.20 mg/dL ADM SS Calcium [Mass/Vol] 9.0 mg/dL Invalid Interpretation Code 8.7 - 10.4 mg/dL ADM SS Chloride [Moles/Vol] 103 mmol/L Invalid Interpretation Code 98 - 110 mEq/L ADM SS CO2 [Moles/Vol] 28 mmol/L Invalid Interpretation Code 22 - 32 mEq/L ADM SS Creatinine [Mass/Vol] 0.68 mg/dL Invalid Interpretation Code 0.50 - 1.20 mg/dL ADM SS Electrolyte Balance 8.0 mEq/L Invalid Interpretation Code 4.0 - 15.0 mEq/L ADM SS Eosinophils (Bld) [#/Vol] 0.2 103/mcL Invalid Interpretation Code 0.0 - 0.7 10^3/mcL Workflow SS Eosinophils/100 WBC (Bld) 4.0 % Invalid Interpretation Code 0.0 - 6.0 % Workflow SS Erythrocyte distribution width (RBC) [Ratio] 13.6 % Invalid Interpretation Code 11.5 - 15.5 % Workflow SS GFR/1.73 sq M.predicted among blacks MDRD (S/P/Bld) [Vol rate/Area] ml/min/1.73sqm Invalid Interpretation Code Chemistry S GFR/1.73 sq M.predicted among non-blacks MDRD (S/P/Bld) [Vol rate/Area] ml/min/1.73sqm Invalid Interpretation Code Chemistry S Globulin 2.8 G/dL Invalid Interpretation Code 1.5 - 3.8 G/dL ADM SS Glucose [Mass/Vol] 102 mg/dL Invalid Interpretation Code 70 - 110 mg/dL ADM SS Hematocrit (Bld) [Volume fraction] 39.2 % Invalid Interpretation Code 34.0 - 46.0 % Workflow SS Hemoglobin (Bld) [Mass/Vol] 13.0 G/dL Invalid Interpretation Code 12.0 - 16.0 G/dL Workflow SS Lymphocytes (Bld) [#/Vol] 2.4 103/mcL Invalid Interpretation Code 0.9 - 4.3 10^3/mcL Workflow SS Lymphocytes/100 WBC (Bld) 40.2 % Invalid Interpretation Code 20.0 - 40.0 % AH Workflow SS Magnesium [Mass/Vol] 1.9 mg/dL Invalid Interpretation Code 1.6 - 2.4 mg/dL AH ADM SS MCH (RBC) [Entitic mass] 30.8 pg Invalid Interpretation Code 27.0 - 33.0 pg AH Workflow SS MCHC 33.2 G/dL Invalid Interpretation Code 32.0 - 36.0 G/dL AH Workflow SS MCV (RBC) [Entitic vol] 92.9 fL Invalid Interpretation Code 80.0 - 99.0 fL AH Workflow SS Monocytes (Bld) [#/Vol] 0.5 103/mcL Invalid Interpretation Code 0.1 - 1.4 10^3/mcL AH Workflow SS Monocytes/100 WBC (Bld) 8.6 % Invalid Interpretation Code 2.0 - 13.0 % AH Workflow SS Neutrophils (Bld) [#/Vol] 2.7 103/mcL Invalid Interpretation Code 2.3 - 8.1 10^3/mcL AH Workflow SS Neutrophils/100 WBC (Bld) 45.9 % Invalid Interpretation Code 50.0 - 75.0 % AH Workflow SS Platelet mean volume (Bld) [Entitic vol] 6.6 fL Invalid Interpretation Code 6.6 - 10.5 fL AH Workflow SS Platelets (Bld) [#/Vol] 291 103/mcL Invalid Interpretation Code 150 - 450 10^3/mcL AH Workflow SS Potassium [Moles/Vol] 3.7 mmol/L Invalid Interpretation Code 3.5 - 5.0 mEq/L ADM SS Comment on above: Result Comment: Spec imen slightly hemolyzed. Protein [Mass/Vol] 6.1 G/dL Invalid Interpretation Code 5.7 - 8.2 G/dL ADM SS RBC (Bld) [#/Vol] 4.22 106/mcL Invalid Interpretation Code 4.10 - 5.30 10^6/mcL AH Workflow SS Sodium [Moles/Vol] 139 mmol/L Invalid Interpretation Code 136 - 145 mEq/L ADM SS Urea nitrogen [Mass/Vol] 11.0 mg/dL Invalid Interpretation Code 8.0 - 22.0 mg/dL ADM SS Urea nitrogen/Creatinine [Mass ratio] 16.2 ratio Invalid Interpretation Code 10.0 - 22.0 ratio AH ADM SS WBC (Bld) [#/Vol] 6.0 103/mcL Invalid Interpretation Code 4.5 - 10.8 10^3/mcL AH Workflow SS LABORATORYOrdered By: Martina Rodriguez on 06-21-2022 Appearance (U) Clear (06/21/22 4:40 PM) Invalid Interpretation Code Clear AH Auto Urine SS Bilirubin Ql (U) Negative (06/21/22 4:40 PM) Invalid Interpretation Code Neg-Trace AH Auto Urine SS Color (U) Yellow (06/21/22 4:40 PM) Invalid Interpretation Code AH Auto Urine SS Glucose Test strip (U) [Mass/Vol] Negative Invalid Interpretation Code Negativemg/d L AH Auto Urine SS Hemoglobin Auto test strip (U) [Mass/Vol] Negative (06/21/22 4:40 PM) Invalid Interpretation Code Neg-Trace AH Auto Urine SS Ketones Ql (U) Negative Invalid Interpretation Code Neg-Tracemg/ dL AH Auto Urine SS UA Leuk Est Negative (06/21/22 4:40 PM) Invalid Interpretation Code Negative AH Auto Urine SS UA Nitrite Negative (06/21/22 4:40 PM) Invalid Interpretation Code Negative AH Auto Urine SS UA pH 6.0 (06/21/22 4:40 PM) Invalid Interpretation Code 5.0 - 8.0 AH Auto Urine SS UA Protein Negative Invalid Interpretation Code Negativemg/d L AH Auto Urine SS UA Spec Grav 1.010 (06/21/22 4:40 PM) Invalid Interpretation Code 1.006-1.029 AH Auto Urine SS UA Specimen Type Clean Catch (06/21/22 4:40 PM) Invalid Interpretation Code AH Auto Urine SS UA Urobilinogen 0.2 E.U./dL Invalid Interpretation Code 0.2-1.0E.U./ dL AH Auto Urine SS LABORATORYOrdered By: SYSTEM SYSTEM on 06-21-2022 Albumin BCP dye [Mass/Vol] 3.1 G/dL Invalid Interpretation Code 3.2 - 4.8 G/dL AH ADM SS Albumin/Globulin [Mass ratio] 1.1 {ratio} Invalid Interpretation Code 0.9 - 1.6 ratio AH ADM SS ALP [Catalytic activity/Vol] 151 U/L Invalid Interpretation Code 38 - 126 U/L AH ADM SS ALT No additional P-5'-P [Catalytic activity/Vol] 131 U/L Invalid Interpretation Code 10 - 49 U/L AH ADM SS AST [Catalytic activity/Vol] 29 U/L Invalid Interpretation Code 8 - 34 U/L AH ADM SS Basophils (Bld) [#/Vol] 0.1 103/mcL Invalid Interpretation Code 0.0 - 0.3 10^3/mcL Workflow SS Basophils/100 WBC (Bld) 0.9 % Invalid Interpretation Code 0.0 - 2.5 % Workflow SS Bilirubin [Mass/Vol] 0.20 mg/dL Invalid Interpretation Code 0.20 - 1.20 mg/dL ADM SS Calcium [Mass/Vol] 8.9 mg/dL Invalid Interpretation Code 8.7 - 10.4 mg/dL ADM SS Chloride [Moles/Vol] 107 mmol/L Invalid Interpretation Code 98 - 110 mEq/L ADM SS CO2 [Moles/Vol] 28 mmol/L Invalid Interpretation Code 22 - 32 mEq/L ADM SS Creatinine [Mass/Vol] 0.72 mg/dL Invalid Interpretation Code 0.50 - 1.20 mg/dL ADM SS Electrolyte Balance 7.0 mEq/L Invalid Interpretation Code 4.0 - 15.0 mEq/L ADM SS Eosinophils (Bld) [#/Vol] 0.2 103/mcL Invalid Interpretation Code 0.0 - 0.7 10^3/mcL Workflow SS Eosinophils/100 WBC (Bld) 3.2 % Invalid Interpretation Code 0.0 - 6.0 % Workflow SS Erythrocyte distribution width (RBC) [Ratio] 13.6 % Invalid Interpretation Code 11.5 - 15.5 % Workflow SS GFR/1.73 sq M.predicted among blacks MDRD (S/P/Bld) [Vol rate/Area] ml/min/1.73sqm Invalid Interpretation Code Chemistry S GFR/1.73 sq M.predicted among non-blacks MDRD (S/P/Bld) [Vol rate/Area] ml/min/1.73sqm Invalid Interpretation Code Chemistry S Globulin 2.8 G/dL Invalid Interpretation Code 1.5 - 3.8 G/dL ADM SS Glucose [Mass/Vol] 112 mg/dL Invalid Interpretation Code 70 - 110 mg/dL ADM SS Hematocrit (Bld) [Volume fraction] 37.9 % Invalid Interpretation Code 34.0 - 46.0 % Workflow SS Hemoglobin (Bld) [Mass/Vol] 12.5 G/dL Invalid Interpretation Code 12.0 - 16.0 G/dL Workflow SS Lymphocytes (Bld) [#/Vol] 2.4 103/mcL Invalid Interpretation Code 0.9 - 4.3 10^3/mcL AH Workflow SS Lymphocytes/100 WBC (Bld) 34.5 % Invalid Interpretation Code 20.0 - 40.0 % AH Workflow SS Magnesium [Mass/Vol] 1.9 mg/dL Invalid Interpretation Code 1.6 - 2.4 mg/dL AH ADM SS MCH (RBC) [Entitic mass] 31.1 pg Invalid Interpretation Code 27.0 - 33.0 pg AH Workflow SS MCHC 33.0 G/dL Invalid Interpretation Code 32.0 - 36.0 G/dL AH Workflow SS MCV (RBC) [Entitic vol] 94.0 fL Invalid Interpretation Code 80.0 - 99.0 fL AH Workflow SS Monocytes (Bld) [#/Vol] 0.5 103/mcL Invalid Interpretation Code 0.1 - 1.4 10^3/mcL AH Workflow SS Monocytes/100 WBC (Bld) 6.7 % Invalid Interpretation Code 2.0 - 13.0 % AH Workflow SS Neutrophils (Bld) [#/Vol] 3.8 103/mcL Invalid Interpretation Code 2.3 - 8.1 10^3/mcL AH Workflow SS Neutrophils/100 WBC (Bld) 54.7 % Invalid Interpretation Code 50.0 - 75.0 % AH Workflow SS Platelet mean volume (Bld) [Entitic vol] 6.3 fL Invalid Interpretation Code 6.6 - 10.5 fL AH Workflow SS Platelets (Bld) [#/Vol] 306 103/mcL Invalid Interpretation Code 150 - 450 10^3/mcL AH Workflow SS Potassium [Moles/Vol] 4.4 mmol/L Invalid Interpretation Code 3.5 - 5.0 mEq/L ADM SS Protein [Mass/Vol] 5.9 G/dL Invalid Interpretation Code 5.7 - 8.2 G/dL AH ADM SS RBC (Bld) [#/Vol] 4.03 106/mcL Invalid Interpretation Code 4.10 - 5.30 10^6/mcL AH Workflow SS Sodium [Moles/Vol] 142 mmol/L Invalid Interpretation Code 136 - 145 mEq/L ADM SS Urea nitrogen [Mass/Vol] 11.0 mg/dL Invalid Interpretation Code 8.0 - 22.0 mg/dL AH ADM SS Urea nitrogen/Creatinine [Mass ratio] 15.3 ratio Invalid Interpretation Code 10.0 - 22.0 ratio AH ADM SS WBC (Bld) [#/Vol] 7.0 103/mcL Invalid Interpretation Code 4.5 - 10.8 10^3/mcL AH Workflow SS LABORATORYOrdered By: SYSTEM SYSTEM on 06-20-2022 Albumin BCP dye [Mass/Vol] 3.3 G/dL Invalid Interpretation Code 3.2 - 4.8 G/dL ADM SS Albumin/Globulin [Mass ratio] 1.2 {ratio} Invalid Interpretation Code 0.9 - 1.6 ratio ADM SS ALP [Catalytic activity/Vol] 153 U/L Invalid Interpretation Code 38 - 126 U/L ADM SS ALT No additional P-5'-P [Catalytic activity/Vol] 169 U/L Invalid Interpretation Code 10 - 49 U/L ADM SS AST [Catalytic activity/Vol] 45 U/L Invalid Interpretation Code 8 - 34 U/L ADM SS Basophils (Bld) [#/Vol] 0.0 103/mcL Invalid Interpretation Code 0.0 - 0.3 10^3/mcL AH Workflow SS Basophils/100 WBC (Bld) 0.8 % Invalid Interpretation Code 0.0 - 2.5 % Workflow SS Bilirubin [Mass/Vol] 0.30 mg/dL Invalid Interpretation Code 0.20 - 1.20 mg/dL ADM SS Calcium [Mass/Vol] 9.0 mg/dL Invalid Interpretation Code 8.7 - 10.4 mg/dL ADM SS Chloride [Moles/Vol] 105 mmol/L Invalid Interpretation Code 98 - 110 mEq/L ADM SS CO2 [Moles/Vol] 25 mmol/L Invalid Interpretation Code 22 - 32 mEq/L ADM SS Creatinine [Mass/Vol] 0.79 mg/dL Invalid Interpretation Code 0.50 - 1.20 mg/dL ADM SS Electrolyte Balance 11.0 mEq/L Invalid Interpretation Code 4.0 - 15.0 mEq/L ADM SS Eosinophils (Bld) [#/Vol] 0.2 103/mcL Invalid Interpretation Code 0.0 - 0.7 10^3/mcL AH Workflow SS Eosinophils/100 WBC (Bld) 3.5 % Invalid Interpretation Code 0.0 - 6.0 % AH Workflow SS Erythrocyte distribution width (RBC) [Ratio] 13.6 % Invalid Interpretation Code 11.5 - 15.5 % Workflow SS GFR/1.73 sq M.predicted among blacks MDRD (S/P/Bld) [Vol rate/Area] ml/min/1.73sqm Invalid Interpretation Code Chemistry S GFR/1.73 sq M.predicted among non-blacks MDRD (S/P/Bld) [Vol rate/Area] ml/min/1.73sqm Invalid Interpretation Code Chemistry S Globulin 2.8 G/dL Invalid Interpretation Code 1.5 - 3.8 G/dL ADM SS Glucose [Mass/Vol] 112 mg/dL Invalid Interpretation Code 70 - 110 mg/dL ADM SS Hematocrit (Bld) [Volume fraction] 37.5 % Invalid Interpretation Code 34.0 - 46.0 % AH Workflow SS Hemoglobin (Bld) [Mass/Vol] 12.6 G/dL Invalid Interpretation Code 12.0 - 16.0 G/dL AH Workflow SS Lymphocytes (Bld) [#/Vol] 2.6 103/mcL Invalid Interpretation Code 0.9 - 4.3 10^3/mcL AH Workflow SS Lymphocytes/100 WBC (Bld) 44.6 % Invalid Interpretation Code 20.0 - 40.0 % AH Workflow SS MCH (RBC) [Entitic mass] 31.6 pg Invalid Interpretation Code 27.0 - 33.0 pg AH Workflow SS MCHC 33.6 G/dL Invalid Interpretation Code 32.0 - 36.0 G/dL AH Workflow SS MCV (RBC) [Entitic vol] 93.8 fL Invalid Interpretation Code 80.0 - 99.0 fL AH Workflow SS Monocytes (Bld) [#/Vol] 0.4 103/mcL Invalid Interpretation Code 0.1 - 1.4 10^3/mcL Workflow SS Monocytes/100 WBC (Bld) 7.6 % Invalid Interpretation Code 2.0 - 13.0 % AH Workflow SS Neutrophils (Bld) [#/Vol] 2.5 103/mcL Invalid Interpretation Code 2.3 - 8.1 10^3/mcL AH Workflow SS Neutrophils/100 WBC (Bld) 43.5 % Invalid Interpretation Code 50.0 - 75.0 % AH Workflow SS Platelet mean volume (Bld) [Entitic vol] 6.7 fL Invalid Interpretation Code 6.6 - 10.5 fL AH Workflow SS Platelets (Bld) [#/Vol] 305 103/mcL Invalid Interpretation Code 150 - 450 10^3/mcL Workflow SS Potassium [Moles/Vol] 3.3 mmol/L Invalid Interpretation Code 3.5 - 5.0 mEq/L AH ADM SS Comment on above: Result Comment: Spec imen slightly hemolyzed. Protein [Mass/Vol] 6.1 G/dL Invalid Interpretation Code 5.7 - 8.2 G/dL AH ADM SS RBC (Bld) [#/Vol] 3.99 106/mcL Invalid Interpretation Code 4.10 - 5.30 10^6/mcL AH Workflow SS Sodium [Moles/Vol] 141 mmol/L Invalid Interpretation Code 136 - 145 mEq/L AH ADM SS Urea nitrogen [Mass/Vol] 9.0 mg/dL Invalid Interpretation Code 8.0 - 22.0 mg/dL ADM SS Urea nitrogen/Creatinine [Mass ratio] 11.4 ratio Invalid Interpretation Code 10.0 - 22.0 ratio AH ADM SS WBC (Bld) [#/Vol] 5.8 103/mcL Invalid Interpretation Code 4.5 - 10.8 10^3/mcL Workflow SS LABORATORYOrdered By: [employer] SYSTEM on 06-19-2022 Ferritin [Mass/Vol] 36.0 ng/mL Invalid Interpretation Code 8.0 - 252.0 ng/mL ADM SS Iron [Mass/Vol] 104 ug/dL Invalid Interpretation Code 50 - 170 mcg/dL ADM SS Iron binding capacity [Mass/Vol] 363 mcg/dL Invalid Interpretation Code 250 - 500 mcg/dL ADM SS Iron saturation [Mass fraction] 29 1 Invalid Interpretation Code ADM SS LABORATORYOrdered By: Michela Grey on 06-19-2022 HAV IgM IA Ql Non-Reactive (06/19/22 11:08 AM) Invalid Interpretation Code Non-Reactive ADM SS HAV IgM IA Ql No serological evide nce of a current Hepatitis A infection. Invalid Interpretation Code Chemistry S HBV core IgM IA Ql Non-Reactive (06/19/22 11:08 AM) Invalid Interpretation Code Non-Reactive ADM SS HBV core IgM IA Ql Samples with a value < 0.80 Index are considered nonreactive (negative) for IgM antibodies to hepatitis B core antigen. Invalid Interpretation Code Chemistry S HBV surface Ag IA Ql Non-Reactive (06/19/22 11:08 AM) Invalid Interpretation Code Non-Reactive AH ADM SS HCV Ab IA Ql Non-Reactive (06/19/22 11:08 AM) Invalid Interpretation Code Non-Reactive AH ADM SS HCV Ab IA Ql Nonreactive: Samples with a value < 0.80 are considered nonreactive (negative) for antibodies to HCV.A negative test result does not exclude the possibility of exposure to or infection with HCV. HCV antibodies may be undetectable in some stages of the infection and in some clinical conditions. Invalid Interpretation Code AH Chemistry S LABORATORYOrdered By: Cynthia Moreno on 06-19-2022 Mitochondria Ab IF Ql (S) Neg 20 (06/19/22 11:08 AM) Invalid Interpretation Code Neg 20 AH Man Viro/Sero SS Smooth muscle Ab IF Ql (S) Neg 20 (06/19/22 11:08 AM) Invalid Interpretation Code Neg 20 AH Man Viro/Sero SS LABORATORYOrdered By: SYSTEM SYSTEM on 06-18-2022 Magnesium [Mass/Vol] 1.7 mg/dL Invalid Interpretation Code 1.6 - 2.4 mg/dL AH ADM SS LABORATORYOrdered By: Pam Mckeon on 06-17-2022 Appearance (U) Clear (06/17/22 2:27 PM) [facility] Beta HCG ( test) Ql (U) Negative (06/17/22 2:27 PM) [facility] Bilirubin Urine Dipstick Negative (06/17/22 2:27 PM) [facility] Blood Urine Dipstick Negative (06/17/22 2:27 PM) [facility] Glucose Urine Dipstick Negative (06/17/22 2:27 PM) [facility] Ketones Urine Dipstick Negative (06/17/22 2:27 PM) [facility] Leukocytes Urine Dipstick Negative (06/17/22 2:27 PM) [facility] Nitrite Urine Dipstick Negative (06/17/22 2:27 PM) [facility] pH Urine Dipstick 6.5 (06/17/22 2:27 PM) [facility] Protein Urine Dipstick Negative (06/17/22 2:27 PM) [facility] Specific [place] Urine Dipstick 1.010 (06/17/22 2:27 PM) [facility] Urine Color Urine Dipstick Yellow (06/17/22 2:27 PM) [facility] Urobilinogen Urine Dipstick 0.2 mg/dl (06/17/22 2:27 PM) [facility] LABORATORYOrdered By: Martha Butt on 06-17-2022 ABO and Rh group Nom (Bld) Blood group A Rh(D) negative Invalid Interpretation Code AH BB Auto SS Blood group antibody screen Ql NEG (06/17/22 11:26 AM) Invalid Interpretation Code AH BB Auto SS LABORATORYOrdered By: SYSTEM SYSTEM on 06-17-2022 Amylase [Catalytic activity/Vol] 30 U/L Invalid Interpretation Code 30 - 118 U/L ADM SS Lipase [Catalytic activity/Vol] 20 U/L Invalid Interpretation Code 12 - 53 U/L ADM SS Monocyte distribution width Auto (Bld) [Entitic vol] 17.52 Invalid Interpretation Code 0.00 - 20.00 AH Workflow SS Comment on above: Result Comment: For ED adult patients suspected of sepsis, MDW<=20.0 does not rule out sepsis or risk of sepsis GFR 67 ml/min/1.73sqm Invalid Interpretation Code AO Chemistry S GFR Non- 55 ml/min/1.73sqm Invalid Interpretation Code AO Chemistry S LABORATORYOrdered By: Alberto Madden on 06-17-2022 aPTT Coag (PPP) [Time] 25.4 s Invalid Interpretation Code 25.0 - 35.0 seconds AH Auto Coag SS Heparin dose (APTT) DTI (06/17/22 11:26 AM) Invalid Interpretation Code AH Auto Coag SS INR Coag (PPP) [Relative time] 1.1 {INR} Invalid Interpretation Code AH Auto Coag SS PT Coag (PPP) [Time] 13.0 s Invalid Interpretation Code 9.0 - 14.9 seconds AH Auto Coag SS LABORATORYOrdered By: Lily hurst on 06-17-2022 Occult Bld Stl Positive (06/17/22 10:56 AM) [facility] LABORATORYOrdered By: Carie Borjas on 06-17-2022 Appearance (U) Clear (06/17/22 8:01 AM) Invalid Interpretation Code Clear AO Auto Urine SS Bilirubin Ql (U) Negative (06/17/22 8:01 AM) Invalid Interpretation Code Negative AO Auto Urine SS Color (U) Yellow (06/17/22 8:01 AM) Invalid Interpretation Code AO Auto Urine SS Glucose Test strip (U) [Mass/Vol] Negative Invalid Interpretation Code Negativemg/d L AO Auto Urine SS Hemoglobin Auto test strip (U) [Mass/Vol] Negative (06/17/22 8:01 AM) Invalid Interpretation Code Negative AO Auto Urine SS Ketones Ql (U) Negative Invalid Interpretation Code Negativemg/d L AO Auto Urine SS UA Leuk Est Negative (06/17/22 8:01 AM) Invalid Interpretation Code Negative AO Auto Urine SS UA Nitrite Negative (06/17/22 8:01 AM) Invalid Interpretation Code Negative AO Auto Urine SS UA pH 7.0 (06/17/22 8:01 AM) Invalid Interpretation Code 5.0 - 8.0 AO Auto Urine SS UA Protein Negative Invalid Interpretation Code Negativemg/d L AO Auto Urine SS UA Spec Grav 1.020 (06/17/22 8:01 AM) Invalid Interpretation Code 1.015-1.025 AO Auto Urine SS UA Specimen Type Clean Catch (06/17/22 8:01 AM) Invalid Interpretation Code AO Auto Urine SS UA Urobilinogen 0.2 E.U./dL Invalid Interpretation Code 0.2-1.0E.U./ dL AO Auto Urine SS LABORATORYOrdered By: Kiarra Jacobo on 06-17-2022 Albumin BCP dye [Mass/Vol] 4.2 G/dL Invalid Interpretation Code 3.5 - 5.0 G/dL AO ADM SS Albumin/Globulin [Mass ratio] 1.4 {ratio} Invalid Interpretation Code 1.1 - 2.5 ratio AO ADM SS ALP [Catalytic activity/Vol] 154 U/L Invalid Interpretation Code 40 - 135 U/L AO ADM SS ALT With P-5'-P [Catalytic activity/Vol] 63 U/L Invalid Interpretation Code 14 - 59 U/L AO ADM SS AST With P-5'-P [Catalytic activity/Vol] 39 U/L Invalid Interpretation Code 10 - 40 U/L AO ADM SS Basophil, Absolute 0.1 103/mcL Invalid Interpretation Code 0.0 - 0.2 10^3/mcL AO Workflow SS Basophils/100 WBC (Bld) 1.0 % Invalid Interpretation Code 0.0 - 2.5 % AO Workflow SS Bilirubin [Mass/Vol] 0.2 mg/dL Invalid Interpretation Code 0.2 - 1.0 mg/dL AO ADM SS Calcium [Mass/Vol] 9.1 mg/dL Invalid Interpretation Code 8.4 - 10.2 mg/dL AO ADM SS Chloride [Moles/Vol] 103 mmol/L Invalid Interpretation Code 98 - 107 mmol/L AO ADM SS CO2 [Moles/Vol] 28 mmol/L Invalid Interpretation Code 22 - 29 mmol/L AO ADM SS Creatinine [Mass/Vol] 1.07 mg/dL Invalid Interpretation Code 0.55 - 1.02 mg/dL AO ADM SS Electrolyte Balance 10.0 mEq/L Invalid Interpretation Code 4.0 - 15.0 mEq/L AO ADM SS Eosinophil, Absolute 0.2 103/mcL Invalid Interpretation Code 0.0 - 0.4 10^3/mcL AO Workflow SS Eosinophils/100 WBC (Bld) 2.1 % Invalid Interpretation Code 0.0 - 7.0 % AO Workflow SS Erythrocyte distribution width (RBC) [Ratio] 13.7 % Invalid Interpretation Code 11.5 - 14.5 % AO Workflow SS Globulin 3.0 G/dL Invalid Interpretation Code AO ADM SS Glucose [Mass/Vol] 112 mg/dL Invalid Interpretation Code 70 - 105 mg/dL AO ADM SS Hematocrit (Bld) [Volume fraction] 42.0 % Invalid Interpretation Code 37.0 - 47.0 % AO Workflow SS Hemoglobin (Bld) [Mass/Vol] 14.3 G/dL Invalid Interpretation Code 12.0 - 16.0 G/dL AO Workflow SS Lipase [Catalytic activity/Vol] 40 U/L Invalid Interpretation Code 73 - 393 U/L AO ADM SS Lymphocyte, Absolute 3.5 103/mcL Invalid Interpretation Code 0.8 - 3.9 10^3/mcL AO Workflow SS Lymphocytes/100 WBC (Bld) 39.1 % Invalid Interpretation Code 10.0 - 50.0 % AO Workflow SS MCH (RBC) [Entitic mass] 31.0 pg Invalid Interpretation Code 27.0 - 31.2 pg AO Workflow SS MCHC 34.0 G/dL Invalid Interpretation Code 33.0 - 37.0 G/dL AO Workflow SS MCV (RBC) [Entitic vol] 91.0 fL Invalid Interpretation Code 80.0 - 94.0 fL AO Workflow SS Monocyte distribution width Auto (Bld) [Entitic vol] 18.00 Invalid Interpretation Code 0.00 - 20.00 AO Workflow SS Comment on above: Result Comment: For ED adult patients suspected of sepsis, MDW<=20.0 does not rule out sepsis or risk of sepsis Monocyte, Absolute 0.5 103/mcL Invalid Interpretation Code 0.2 - 1.0 10^3/mcL AO Workflow SS Monocytes/100 WBC (Bld) 5.4 % Invalid Interpretation Code 1.7 - 13.0 % AO Workflow SS Neutrophil, Absolute 4.7 103/mcL Invalid Interpretation Code 2.9 - 6.2 10^3/mcL AO Workflow SS Neutrophils/100 WBC (Bld) 52.4 % Invalid Interpretation Code 37.0 - 80.0 % AO Workflow SS Platelet mean volume (Bld) [Entitic vol] 6.6 fL Invalid Interpretation Code 7.4 - 10.4 fL AO Workflow SS Platelets (Bld) [#/Vol] 382 103/mcL Invalid Interpretation Code 130 - 400 10^3/mcL AO Workflow SS Potassium [Moles/Vol] 4.1 mmol/L Invalid Interpretation Code 3.5 - 5.1 mmol/L AO ADM SS Protein [Mass/Vol] 7.2 G/dL Invalid Interpretation Code 6.4 - 8.2 G/dL AO ADM SS RBC (Bld) [#/Vol] 4.62 106/mcL Invalid Interpretation Code 4.20 - 5.40 10^6/mcL AO Workflow SS Sodium [Moles/Vol] 141 mmol/L Invalid Interpretation Code 136 - 145 mmol/L AO ADM SS Urea nitrogen [Mass/Vol] 16 mg/dL Invalid Interpretation Code 7 - 18 mg/dL AO ADM SS Urea nitrogen/Creatinine [Mass ratio] 15 ratio Invalid Interpretation Code 7 - 27 ratio AO ADM SS WBC (Bld) [#/Vol] 8.9 103/mcL Invalid Interpretation Code 4.6 - 10.8 10^3/mcL AO Workflow SS LABORATORYOrdered By: Cynthia Garcia on 04-12-2022 Calcium [Mass/Vol] 9.1 mg/dL Invalid Interpretation Code 8.4 - 10.2 mg/dL AO ADM SS Chloride [Moles/Vol] 102 mmol/L Invalid Interpretation Code 98 - 107 mmol/L AO ADM SS CO2 [Moles/Vol] 28 mmol/L Invalid Interpretation Code 22 - 29 mmol/L AO ADM SS Creatinine [Mass/Vol] 1.05 mg/dL Invalid Interpretation Code 0.55 - 1.02 mg/dL AO ADM SS Electrolyte Balance 8.0 mEq/L Invalid Interpretation Code 4.0 - 15.0 mEq/L AO ADM SS Glucose [Mass/Vol] 128 mg/dL Invalid Interpretation Code 70 - 105 mg/dL AO ADM SS Potassium [Moles/Vol] 4.8 mmol/L Invalid Interpretation Code 3.5 - 5.1 mmol/L AO ADM SS Sodium [Moles/Vol] 138 mmol/L Invalid Interpretation Code 136 - 145 mmol/L AO ADM SS Urea nitrogen [Mass/Vol] 19 mg/dL Invalid Interpretation Code 7 - 18 mg/dL AO ADM SS Urea nitrogen/Creatinine [Mass ratio] 18 ratio Invalid Interpretation Code 7 - 27 ratio AO ADM SS LABORATORYOrdered By: SYSTEM SYSTEM on 04-12-2022 GFR 68 ml/min/1.73sqm Invalid Interpretation Code AO Chemistry S GFR Non- 56 ml/min/1.73sqm Invalid Interpretation Code AO Chemistry S LABORATORYOrdered By: Carie Borjas on 04-12-2022 Appearance (U) Clear (04/12/22 11:08 AM) Invalid Interpretation Code Clear AO Auto Urine SS Bilirubin Ql (U) Negative (04/12/22 11:08 AM) Invalid Interpretation Code Negative AO Auto Urine SS Color (U) Yellow (04/12/22 11:08 AM) Invalid Interpretation Code AO Auto Urine SS Glucose Test strip (U) [Mass/Vol] Negative Invalid Interpretation Code Negativemg/d L AO Auto Urine SS HCG ( test) Ql Negative (04/12/22 11:08 AM) Invalid Interpretation Code AO Manual Urine SS Hemoglobin Auto test strip (U) [Mass/Vol] Negative (04/12/22 11:08 AM) Invalid Interpretation Code Negative AO Auto Urine SS Ketones Ql (U) Negative Invalid Interpretation Code Negativemg/d L AO Auto Urine SS test (u) int Not detected Invalid Interpretation Code AO Manual Urine SS UA Leuk Est Negative (04/12/22 11:08 AM) Invalid Interpretation Code Negative AO Auto Urine SS UA Nitrite Negative (04/12/22 11:08 AM) Invalid Interpretation Code Negative AO Auto Urine SS UA pH 5.5 (04/12/22 11:08 AM) Invalid Interpretation Code 5.0 - 8.0 AO Auto Urine SS UA Protein Negative Invalid Interpretation Code Negativemg/d L AO Auto Urine SS UA Spec Grav 1.010 *ABN* (04/12/22 11:08 AM) Invalid Interpretation Code 1.015-1.025 AO Auto Urine SS UA Specimen Type Clean Catch (04/12/22 11:08 AM) Invalid Interpretation Code AO Auto Urine SS UA Urobilinogen 0.2 E.U./dL Invalid Interpretation Code 0.2-1.0E.U./ dL AO Auto Urine SS LABORATORYOrdered By: Cynthia Garcia on 03-10-2022 Albumin BCP dye [Mass/Vol] 4.7 G/dL Invalid Interpretation Code 3.5 - 5.0 G/dL AO ADM SS Albumin/Globulin [Mass ratio] 1.6 {ratio} Invalid Interpretation Code 1.1 - 2.5 ratio AO ADM SS ALP [Catalytic activity/Vol] 152 U/L Invalid Interpretation Code 40 - 135 U/L AO ADM SS ALT With P-5'-P [Catalytic activity/Vol] 54 U/L Invalid Interpretation Code 14 - 59 U/L AO ADM SS Appearance (U) Slightly Cloudy *ABN* (03/10/22 4:52 PM) Invalid Interpretation Code Clear AO Auto Urine SS AST With P-5'-P [Catalytic activity/Vol] 23 U/L Invalid Interpretation Code 10 - 40 U/L AO ADM SS Bacteria LM.HPF (Urine sed) [#/Area] 1 /[HPF] Invalid Interpretation Code AO Auto Urine SS Basophil, Absolute 0.1 103/mcL Invalid Interpretation Code 0.0 - 0.2 10^3/mcL AO Workflow SS Basophils/100 WBC (Bld) 1.1 % Invalid Interpretation Code 0.0 - 2.5 % AO Workflow SS Bilirubin [Mass/Vol] 0.2 mg/dL Invalid Interpretation Code 0.2 - 1.0 mg/dL AO ADM SS Bilirubin Ql (U) Negative (03/10/22 4:52 PM) Invalid Interpretation Code Negative AO Auto Urine SS Calcium [Mass/Vol] 9.6 mg/dL Invalid Interpretation Code 8.4 - 10.2 mg/dL AO ADM SS Chloride [Moles/Vol] 102 mmol/L Invalid Interpretation Code 98 - 107 mmol/L AO ADM SS CO2 [Moles/Vol] 27 mmol/L Invalid Interpretation Code 22 - 29 mmol/L AO ADM SS Color (U) Yellow (03/10/22 4:52 PM) Invalid Interpretation Code AO Auto Urine SS Creatinine [Mass/Vol] 1.05 mg/dL Invalid Interpretation Code 0.55 - 1.02 mg/dL AO ADM SS Electrolyte Balance 8.0 mEq/L Invalid Interpretation Code 4.0 - 15.0 mEq/L AO ADM SS Eosinophil, Absolute 0.2 103/mcL Invalid Interpretation Code 0.0 - 0.4 10^3/mcL AO Workflow SS Eosinophils/100 WBC (Bld) 2.9 % Invalid Interpretation Code 0.0 - 7.0 % AO Workflow SS Erythrocyte distribution width (RBC) [Ratio] 13.2 % Invalid Interpretation Code 11.5 - 14.5 % AO Workflow SS Globulin 2.9 G/dL Invalid Interpretation Code AO ADM SS Glucose [Mass/Vol] 109 mg/dL Invalid Interpretation Code 70 - 105 mg/dL AO ADM SS Glucose Test strip (U) [Mass/Vol] Negative Invalid Interpretation Code Negativemg/d L AO Auto Urine SS HCG ( test) Ql Negative (03/10/22 4:52 PM) Invalid Interpretation Code AO Manual Urine SS Hematocrit (Bld) [Volume fraction] 44.4 % Invalid Interpretation Code 37.0 - 47.0 % AO Workflow SS Hemoglobin (Bld) [Mass/Vol] 15.1 G/dL Invalid Interpretation Code 12.0 - 16.0 G/dL AO Workflow SS Hemoglobin Auto test strip (U) [Mass/Vol] Negative (03/10/22 4:52 PM) Invalid Interpretation Code Negative AO Auto Urine SS Ketones Ql (U) Negative Invalid Interpretation Code Negativemg/d L AO Auto Urine SS Lipase [Catalytic activity/Vol] 25 U/L Invalid Interpretation Code 73 - 393 U/L AO ADM SS Lymphocyte, Absolute 2.7 103/mcL Invalid Interpretation Code 0.8 - 3.9 10^3/mcL AO Workflow SS Lymphocytes/100 WBC (Bld) 40.1 % Invalid Interpretation Code 10.0 - 50.0 % AO Workflow SS MCH (RBC) [Entitic mass] 29.3 pg Invalid Interpretation Code 27.0 - 31.2 pg AO Workflow SS MCHC 33.9 G/dL Invalid Interpretation Code 33.0 - 37.0 G/dL AO Workflow SS MCV (RBC) [Entitic vol] 86.3 fL Invalid Interpretation Code 80.0 - 94.0 fL AO Workflow SS Monocyte distribution width Auto (Bld) [Entitic vol] 16.57 Invalid Interpretation Code 0.00 - 20.00 AO Workflow SS Comment on above: Result Comment: For ED adult patients suspected of sepsis, MDW<=20.0 does not rule out sepsis or risk of sepsis Monocyte, Absolute 0.4 103/mcL Invalid Interpretation Code 0.2 - 1.0 10^3/mcL AO Workflow SS Monocytes/100 WBC (Bld) 5.9 % Invalid Interpretation Code 1.7 - 13.0 % AO Workflow SS Neutrophil, Absolute 3.3 103/mcL Invalid Interpretation Code 2.9 - 6.2 10^3/mcL AO Workflow SS Neutrophils/100 WBC (Bld) 50.0 % Invalid Interpretation Code 37.0 - 80.0 % AO Workflow SS Platelet mean volume (Bld) [Entitic vol] 6.0 fL Invalid Interpretation Code 7.4 - 10.4 fL AO Workflow SS Platelets (Bld) [#/Vol] 335 103/mcL Invalid Interpretation Code 130 - 400 10^3/mcL AO Workflow SS Potassium [Moles/Vol] 3.8 mmol/L Invalid Interpretation Code 3.5 - 5.1 mmol/L AO ADM SS test (u) int Not detected Invalid Interpretation Code AO Manual Urine SS Protein [Mass/Vol] 7.6 G/dL Invalid Interpretation Code 6.4 - 8.2 G/dL AO ADM SS RBC (Bld) [#/Vol] 5.15 106/mcL Invalid Interpretation Code 4.20 - 5.40 10^6/mcL AO Workflow SS Sodium [Moles/Vol] 137 mmol/L Invalid Interpretation Code 136 - 145 mmol/L AO ADM SS UA Leuk Est Negative (03/10/22 4:52 PM) Invalid Interpretation Code Negative AO Auto Urine SS UA Nitrite Negative (03/10/22 4:52 PM) Invalid Interpretation Code Negative AO Auto Urine SS UA pH 7.0 (03/10/22 4:52 PM) Invalid Interpretation Code 5.0 - 8.0 AO Auto Urine SS UA Protein Negative Invalid Interpretation Code Negativemg/d L AO Auto Urine SS UA RBC None Seen /HPF Invalid Interpretation Code None Seen/HPF AO Auto Urine SS UA Spec Grav 1.020 (03/10/22 4:52 PM) Invalid Interpretation Code 1.015-1.025 AO Auto Urine SS UA Specimen Type Clean Catch (03/10/22 4:52 PM) Invalid Interpretation Code AO Auto Urine SS UA Squam Epithelial 0-5 /HPF Invalid Interpretation Code None Seen/HPF AO Auto Urine SS UA Urobilinogen 0.2 E.U./dL Invalid Interpretation Code 0.2-1.0E.U./ dL AO Auto Urine SS Urea nitrogen [Mass/Vol] 17 mg/dL Invalid Interpretation Code 7 - 18 mg/dL AO ADM SS Urea nitrogen/Creatinine [Mass ratio] 16 ratio Invalid Interpretation Code 7 - 27 ratio AO ADM SS WBC 6.7 103/mcL Invalid Interpretation Code 4.6 - 10.8 10^3/mcL AO Workflow SS WBC LM.HPF (Urine sed) [#/Area] 0-5 /HPF Invalid Interpretation Code None Seen/HPF AO Auto Urine SS LABORATORYOrdered By: SYSTEM SYSTEM on 03-10-2022 GFR 68 ml/min/1.73sqm Invalid Interpretation Code AO Chemistry S GFR Non- 56 ml/min/1.73sqm Invalid Interpretation Code AO Chemistry S LABORATORYOrdered By: Cynthia Lucia on 02-11-2022 aPTT Coag (Bld) [Time] 31.0 s Invalid Interpretation Code 24.8 - 33.3 seconds AO Coag SS Heparin dose (APTT) None Invalid Interpretation Code AO Coag SS INR Coag (PPP) [Relative time] 1.3 {INR} Invalid Interpretation Code 0.9 - 1.2 ratio AO Coag SS PT Coag (PPP) [Time] 15.0 s Invalid Interpretation Code 9.7 - 14.3 seconds AO Coag SS Basophil, Absolute 0.1 103/mcL Invalid Interpretation Code 0.0 - 0.2 10^3/mcL AO Workflow SS Basophils/100 WBC (Bld) 1.0 % Invalid Interpretation Code 0.0 - 2.5 % AO Workflow SS Eosinophil, Absolute 0.2 103/mcL Invalid Interpretation Code 0.0 - 0.4 10^3/mcL AO Workflow SS Eosinophils/100 WBC (Bld) 2.6 % Invalid Interpretation Code 0.0 - 7.0 % AO Workflow SS Erythrocyte distribution width (RBC) [Ratio] 12.8 % Invalid Interpretation Code 11.5 - 14.5 % AO Workflow SS Hematocrit (Bld) [Volume fraction] 46.1 % Invalid Interpretation Code 37.0 - 47.0 % AO Workflow SS Hgb 15.5 G/dL Invalid Interpretation Code 12.0 - 16.0 G/dL AO Workflow SS Lymphocyte, Absolute 2.6 103/mcL Invalid Interpretation Code 0.8 - 3.9 10^3/mcL AO Workflow SS Lymphocytes/100 WBC (Bld) 40.5 % Invalid Interpretation Code 10.0 - 50.0 % AO Workflow SS MCH (RBC) [Entitic mass] 28.6 pg Invalid Interpretation Code 27.0 - 31.2 pg AO Workflow SS MCHC 33.5 G/dL Invalid Interpretation Code 33.0 - 37.0 G/dL AO Workflow SS MCV (RBC) [Entitic vol] 85.3 fL Invalid Interpretation Code 80.0 - 94.0 fL AO Workflow SS Monocyte distribution width Auto (Bld) [Entitic vol] 17.69 Invalid Interpretation Code 0.00 - 20.00 AO Workflow SS Comment on above: Result Comment: For ED adult patients suspected of sepsis, MDW<=20.0 does not rule out sepsis or risk of sepsis Monocyte, Absolute 0.5 103/mcL Invalid Interpretation Code 0.2 - 1.0 10^3/mcL AO Workflow SS Monocytes/100 WBC (Bld) 7.3 % Invalid Interpretation Code 1.7 - 13.0 % AO Workflow SS Neutrophil, Absolute 3.2 103/mcL Invalid Interpretation Code 2.9 - 6.2 10^3/mcL AO Workflow SS Neutrophils/100 WBC (Bld) 48.6 % Invalid Interpretation Code 37.0 - 80.0 % AO Workflow SS Platelet 313 103/mcL Invalid Interpretation Code 130 - 400 10^3/mcL AO Workflow SS Platelet mean volume (Bld) [Entitic vol] 6.3 fL Invalid Interpretation Code 7.4 - 10.4 fL AO Workflow SS RBC 5.40 106/mcL Invalid Interpretation Code 4.20 - 5.40 10^6/mcL AO Workflow SS WBC 6.5 103/mcL Invalid Interpretation Code 4.6 - 10.8 10^3/mcL AO Workflow SS LABORATORYOrdered By: Sheyla Hernandez on 02-11-2022 Troponin I.cardiac DL <= 0.01 ng/mL [Mass/Vol] 7.1 ng/L Invalid Interpretation Code 0.0 - 51.4 ng/L AO ADM SS Calcium [Mass/Vol] 9.3 mg/dL Invalid Interpretation Code 8.4 - 10.2 mg/dL AO ADM SS Chloride [Moles/Vol] 100 mmol/L Invalid Interpretation Code 98 - 107 mmol/L AO ADM SS CO2 [Moles/Vol] 25 mmol/L Invalid Interpretation Code 22 - 29 mmol/L AO ADM SS Creatinine [Mass/Vol] 0.96 mg/dL Invalid Interpretation Code 0.55 - 1.02 mg/dL AO ADM SS Electrolyte Balance 13.0 mEq/L Invalid Interpretation Code 4.0 - 15.0 mEq/L AO ADM SS Glucose [Mass/Vol] 109 mg/dL Invalid Interpretation Code 70 - 105 mg/dL AO ADM SS Magnesium [Mass/Vol] 1.9 mg/dL Invalid Interpretation Code 1.8 - 2.4 mg/dL AO ADM SS Potassium [Moles/Vol] 3.3 mmol/L Invalid Interpretation Code 3.5 - 5.1 mmol/L AO ADM SS Sodium [Moles/Vol] 138 mmol/L Invalid Interpretation Code 136 - 145 mmol/L AO ADM SS Urea nitrogen [Mass/Vol] 10 mg/dL Invalid Interpretation Code 7 - 18 mg/dL AO ADM SS Urea nitrogen/Creatinine [Mass ratio] 10 ratio Invalid Interpretation Code 7 - 27 ratio AO ADM SS LABORATORYOrdered By: SYSTEM SYSTEM on 02-11-2022 GFR 76 ml/min/1.73sqm Invalid Interpretation Code AO Chemistry S GFR Non- 62 ml/min/1.73sqm Invalid Interpretation Code AO Chemistry S LABORATORYOrdered By: Kiarra Jacobo on 02-02-2022 Albumin BCP dye [Mass/Vol] 4.0 G/dL Invalid Interpretation Code 3.5 - 5.0 G/dL AO ADM SS Albumin/Globulin [Mass ratio] 1.1 {ratio} Invalid Interpretation Code 1.1 - 2.5 ratio AO ADM SS ALP [Catalytic activity/Vol] 167 U/L Invalid Interpretation Code 40 - 135 U/L AO ADM SS ALT With P-5'-P [Catalytic activity/Vol] 209 U/L Invalid Interpretation Code 14 - 59 U/L AO ADM SS AST With P-5'-P [Catalytic activity/Vol] 150 U/L Invalid Interpretation Code 10 - 40 U/L AO ADM SS Bilirubin [Mass/Vol] 0.4 mg/dL Invalid Interpretation Code 0.2 - 1.0 mg/dL AO ADM SS Calcium [Mass/Vol] 9.8 mg/dL Invalid Interpretation Code 8.4 - 10.2 mg/dL AO ADM SS Chloride [Moles/Vol] 99 mmol/L Invalid Interpretation Code 98 - 107 mmol/L AO ADM SS CO2 [Moles/Vol] 22 mmol/L Invalid Interpretation Code 22 - 29 mmol/L AO ADM SS Creatinine [Mass/Vol] 1.04 mg/dL Invalid Interpretation Code 0.55 - 1.02 mg/dL AO ADM SS Electrolyte Balance 15.0 mEq/L Invalid Interpretation Code 4.0 - 15.0 mEq/L AO ADM SS Globulin 3.7 G/dL Invalid Interpretation Code AO ADM SS Glucose [Mass/Vol] 100 mg/dL Invalid Interpretation Code 70 - 105 mg/dL AO ADM SS Lipase [Catalytic activity/Vol] 40 U/L Invalid Interpretation Code 73 - 393 U/L AO ADM SS Potassium [Moles/Vol] 4.7 mmol/L Invalid Interpretation Code 3.5 - 5.1 mmol/L AO ADM SS Protein [Mass/Vol] 7.7 G/dL Invalid Interpretation Code 6.4 - 8.2 G/dL AO ADM SS Sodium [Moles/Vol] 136 mmol/L Invalid Interpretation Code 136 - 145 mmol/L AO ADM SS Urea nitrogen [Mass/Vol] 19 mg/dL Invalid Interpretation Code 7 - 18 mg/dL AO ADM SS Urea nitrogen/Creatinine [Mass ratio] 18 ratio Invalid Interpretation Code 7 - 27 ratio AO ADM SS LABORATORYOrdered By: Shavon Dean on 02-02-2022 Basophil, Absolute 0.10 103/mcL Invalid Interpretation Code 0.00 - 0.19 10^3/mcL AO Auto Heme SS Basophils/100 WBC (Bld) 0.9 % Invalid Interpretation Code 0.0 - 2.5 % AO Auto Heme SS Eosinophil, Absolute 0.20 103/mcL Invalid Interpretation Code 0.00 - 0.40 10^3/mcL AO Auto Heme SS Eosinophils/100 WBC (Bld) 2.4 % Invalid Interpretation Code 0.0 - 7.0 % AO Auto Heme SS Erythrocyte distribution width (RBC) [Ratio] 12.5 % Invalid Interpretation Code 11.5 - 14.5 % AO Auto Heme SS Hematocrit (Bld) [Volume fraction] 45.2 % Invalid Interpretation Code 37.0 - 47.0 % AO Auto Heme SS Hemoglobin (Bld) [Mass/Vol] 15.4 G/dL Invalid Interpretation Code 12.0 - 16.0 G/dL AO Auto Heme SS Lymphocyte, Absolute 2.80 103/mcL Invalid Interpretation Code 0.77 - 3.85 10^3/mcL AO Auto Heme SS Lymphocytes/100 WBC (Bld) 31.3 % Invalid Interpretation Code 10.0 - 50.0 % AO Auto Heme SS MCH (RBC) [Entitic mass] 29.0 pg Invalid Interpretation Code 27.0 - 31.2 pg AO Auto Heme SS MCHC (RBC) [Mass/Vol] 34.0 G/dL Invalid Interpretation Code 33.0 - 37.0 G/dL AO Auto Heme SS MCV (RBC) [Entitic vol] 85.1 fL Invalid Interpretation Code 80.0 - 94.0 fL AO Auto Heme SS Monocyte, Absolute 0.60 103/mcL Invalid Interpretation Code 0.15 - 1.00 10^3/mcL AO Auto Heme SS Monocytes/100 WBC (Bld) 7.3 % Invalid Interpretation Code 1.7 - 13.0 % AO Auto Heme SS Neutrophil, Absolute 5.10 103/mcL Invalid Interpretation Code 2.85 - 6.16 10^3/mcL AO Auto Heme SS Neutrophils/100 WBC (Bld) 58.1 % Invalid Interpretation Code 37.0 - 80.0 % AO Auto Heme SS Platelet mean volume (Bld) [Entitic vol] 6.8 fL Invalid Interpretation Code 7.4 - 10.4 fL AO Auto Heme SS Platelets (Bld) [#/Vol] 433 103/mcL Invalid Interpretation Code 130 - 400 10^3/mcL AO Auto Heme SS RBC (Bld) [#/Vol] 5.31 106/mcL Invalid Interpretation Code 4.20 - 5.40 10^6/mcL AO Auto Heme SS WBC (Bld) [#/Vol] 8.80 103/mcL Invalid Interpretation Code 4.60 - 10.80 10^3/mcL AO Auto Heme SS Appearance (U) Clear (02/02/22 8:04 PM) Invalid Interpretation Code Clear AO Auto Urine SS Bilirubin Ql (U) Negative (02/02/22 8:04 PM) Invalid Interpretation Code Negative AO Auto Urine SS Color (U) Yellow (02/02/22 8:04 PM) Invalid Interpretation Code AO Auto Urine SS Glucose Test strip (U) [Mass/Vol] Negative Invalid Interpretation Code Negativemg/d L AO Auto Urine SS HCG ( test) Ql Negative (02/02/22 8:04 PM) Invalid Interpretation Code AO Manual Urine SS Hemoglobin Auto test strip (U) [Mass/Vol] Negative (02/02/22 8:04 PM) Invalid Interpretation Code Negative AO Auto Urine SS Ketones Ql (U) Trace mg/dL Invalid Interpretation Code Negativemg/d L AO Auto Urine SS test (u) int Not detected Invalid Interpretation Code AO Manual Urine SS UA Leuk Est Negative (02/02/22 8:04 PM) Invalid Interpretation Code Negative AO Auto Urine SS UA Nitrite Negative (02/02/22 8:04 PM) Invalid Interpretation Code Negative AO Auto Urine SS UA pH 5.0 (02/02/22 8:04 PM) Invalid Interpretation Code 5.0 - 8.0 AO Auto Urine SS UA Protein Negative Invalid Interpretation Code Negativemg/d L AO Auto Urine SS UA Spec Grav 1.025 (02/02/22 8:04 PM) Invalid Interpretation Code 1.015-1.025 AO Auto Urine SS UA Specimen Type Void (02/02/22 8:04 PM) Invalid Interpretation Code AO Auto Urine SS UA Urobilinogen 0.2 E.U./dL Invalid Interpretation Code 0.2-1.0E.U./ dL AO Auto Urine SS LABORATORYOrdered By: SYSTEM SYSTEM on 02-02-2022 GFR 69 ml/min/1.73sqm Invalid Interpretation Code AO Chemistry S GFR Non- 57 ml/min/1.73sqm Invalid Interpretation Code AO Chemistry S LABORATORYOrdered By: Cynthia Garcia on 10-28-2021 Basophil, Absolute 0.10 103/mcL Invalid Interpretation Code 0.00 - 0.19 10^3/mcL AO Auto Heme SS Basophils/100 WBC (Bld) 1.0 % Invalid Interpretation Code 0.0 - 2.5 % AO Auto Heme SS Eosinophil, Absolute 0.30 103/mcL Invalid Interpretation Code 0.00 - 0.40 10^3/mcL AO Auto Heme SS Eosinophils/100 WBC (Bld) 4.1 % Invalid Interpretation Code 0.0 - 7.0 % AO Auto Heme SS Erythrocyte distribution width (RBC) [Ratio] 12.4 % Invalid Interpretation Code 11.5 - 14.5 % AO Auto Heme SS Hematocrit (Bld) [Volume fraction] 39.8 % Invalid Interpretation Code 37.0 - 47.0 % AO Auto Heme SS Hemoglobin (Bld) [Mass/Vol] 13.6 G/dL Invalid Interpretation Code 12.0 - 16.0 G/dL AO Auto Heme SS Lymphocyte, Absolute 2.50 103/mcL Invalid Interpretation Code 0.77 - 3.85 10^3/mcL AO Auto Heme SS Lymphocytes/100 WBC (Bld) 35.9 % Invalid Interpretation Code 10.0 - 50.0 % AO Auto Heme SS MCH (RBC) [Entitic mass] 30.0 pg Invalid Interpretation Code 27.0 - 31.2 pg AO Auto Heme SS MCHC (RBC) [Mass/Vol] 34.2 G/dL Invalid Interpretation Code 33.0 - 37.0 G/dL AO Auto Heme SS MCV (RBC) [Entitic vol] 87.7 fL Invalid Interpretation Code 80.0 - 94.0 fL AO Auto Heme SS Monocyte, Absolute 0.50 103/mcL Invalid Interpretation Code 0.15 - 1.00 10^3/mcL AO Auto Heme SS Monocytes/100 WBC (Bld) 7.3 % Invalid Interpretation Code 1.7 - 13.0 % AO Auto Heme SS Neutrophil, Absolute 3.60 103/mcL Invalid Interpretation Code 2.85 - 6.16 10^3/mcL AO Auto Heme SS Neutrophils/100 WBC (Bld) 51.7 % Invalid Interpretation Code 37.0 - 80.0 % AO Auto Heme SS Platelet mean volume (Bld) [Entitic vol] 6.2 fL Invalid Interpretation Code 7.4 - 10.4 fL AO Auto Heme SS Platelets (Bld) [#/Vol] 273 103/mcL Invalid Interpretation Code 130 - 400 10^3/mcL AO Auto Heme SS RBC (Bld) [#/Vol] 4.54 106/mcL Invalid Interpretation Code 4.20 - 5.40 10^6/mcL AO Auto Heme SS WBC (Bld) [#/Vol] 6.90 103/mcL Invalid Interpretation Code 4.60 - 10.80 10^3/mcL AO Auto Heme SS LABORATORYOrdered By: Carie Borjas on 10-28-2021 Calcium.ionized (Bld) [Moles/Vol] 1.14 mmol/L Invalid Interpretation Code 1.12 - 1.32 mmol/L AO Blood Gas SS Chloride [Moles/Vol] 101 mmol/L Invalid Interpretation Code 98 - 107 mmol/L AO ADM SS CO2 [Moles/Vol] 28 mmol/L Invalid Interpretation Code 22 - 29 mmol/L AO ADM SS Creatinine [Mass/Vol] 1.27 mg/dL Invalid Interpretation Code 0.55 - 1.02 mg/dL AO ADM SS Electrolyte Balance 11.0 mEq/L Invalid Interpretation Code 4.0 - 15.0 mEq/L AO ADM SS Glucose [Mass/Vol] 122 mg/dL Invalid Interpretation Code 70 - 105 mg/dL AO ADM SS Potassium [Moles/Vol] 3.5 mmol/L Invalid Interpretation Code 3.5 - 5.1 mmol/L AO ADM SS Sodium [Moles/Vol] 140 mmol/L Invalid Interpretation Code 136 - 145 mmol/L AO ADM SS Urea nitrogen [Mass/Vol] 24 mg/dL Invalid Interpretation Code 7 - 18 mg/dL AO ADM SS Urea nitrogen/Creatinine [Mass ratio] 19 ratio Invalid Interpretation Code 7 - 27 ratio AO ADM SS LABORATORYOrdered By: SYSTEM SYSTEM on 10-28-2021 GFR 55 ml/min/1.73sqm Invalid Interpretation Code AO ADM SS GFR Non- 45 ml/min/1.73sqm Invalid Interpretation Code AO ADM SS LABORATORYOrdered By: Gil Hardy on 09-24-2021 Calcium [Mass/Vol] 8.4 mg/dL Invalid Interpretation Code 8.4 - 10.2 mg/dL AO ADM SS Chloride [Moles/Vol] 104 mmol/L Invalid Interpretation Code 98 - 107 mmol/L AO ADM SS Creatinine [Mass/Vol] 0.96 mg/dL Invalid Interpretation Code 0.55 - 1.02 mg/dL AO ADM SS Electrolyte Balance 12.0 mEq/L Invalid Interpretation Code AO ADM SS Glucose [Mass/Vol] 133 mg/dL Invalid Interpretation Code 70 - 105 mg/dL AO ADM SS Potassium [Moles/Vol] 3.1 mmol/L Invalid Interpretation Code 3.5 - 5.1 mmol/L AO ADM SS Urea nitrogen [Mass/Vol] 17 mg/dL Invalid Interpretation Code 7 - 18 mg/dL AO ADM SS Urea nitrogen/Creatinine [Mass ratio] 18 ratio Invalid Interpretation Code 7 - 27 ratio AO ADM SS LABORATORYOrdered By: SYSTEM SYSTEM on 09-24-2021 GFR 76 ml/min/1.73sqm Invalid Interpretation Code AO Chemistry S GFR Non- 63 ml/min/1.73sqm Invalid Interpretation Code AO Chemistry S GFR 106 ml/min/1.73sqm Invalid Interpretation Code AO Chemistry S GFR Non- 87 ml/min/1.73sqm Invalid Interpretation Code AO Chemistry S LABORATORYOrdered By: Elaine Skinner on 09-24-2021 Albumin BCP dye [Mass/Vol] 2.9 G/dL Invalid Interpretation Code 3.5 - 5.0 G/dL AO ADM SS Albumin/Globulin [Mass ratio] 1.1 {ratio} Invalid Interpretation Code 1.1 - 2.5 ratio AO ADM SS ALP [Catalytic activity/Vol] 96 U/L Invalid Interpretation Code 40 - 135 U/L AO ADM SS ALT With P-5'-P [Catalytic activity/Vol] 63 U/L Invalid Interpretation Code 14 - 59 U/L AO ADM SS AST With P-5'-P [Catalytic activity/Vol] 32 U/L Invalid Interpretation Code 10 - 40 U/L AO ADM SS Bilirubin [Mass/Vol] 0.2 mg/dL Invalid Interpretation Code 0.2 - 1.0 mg/dL AO ADM SS Calcium [Mass/Vol] 8.1 mg/dL Invalid Interpretation Code 8.4 - 10.2 mg/dL AO ADM SS Chloride [Moles/Vol] 106 mmol/L Invalid Interpretation Code 98 - 107 mmol/L AO ADM SS Creatinine [Mass/Vol] 0.72 mg/dL Invalid Interpretation Code 0.55 - 1.02 mg/dL AO ADM SS Electrolyte Balance 10.0 mEq/L Invalid Interpretation Code AO ADM SS Globulin 2.6 G/dL Invalid Interpretation Code AO ADM SS Glucose [Mass/Vol] 116 mg/dL Invalid Interpretation Code 70 - 105 mg/dL AO ADM SS Magnesium [Mass/Vol] 2.2 mg/dL Invalid Interpretation Code 1.8 - 2.4 mg/dL AO ADM SS Potassium [Moles/Vol] 2.9 mmol/L Invalid Interpretation Code 3.5 - 5.1 mmol/L AO ADM SS Protein [Mass/Vol] 5.5 G/dL Invalid Interpretation Code 6.4 - 8.2 G/dL AO ADM SS Urea nitrogen [Mass/Vol] 16 mg/dL Invalid Interpretation Code 7 - 18 mg/dL AO ADM SS Urea nitrogen/Creatinine [Mass ratio] 22 ratio Invalid Interpretation Code 7 - 27 ratio AO ADM SS Laboratory - Chemistry and C hemistry - challengeOrdered By: Antonella Hardy on 09-24-2021 CO2 [Moles/Vol] 25 mmol/L Invalid Interpretation Code 22 - 29 mmol/L AO ADM SS Sodium [Moles/Vol] 141 mmol/L Invalid Interpretation Code 136 - 145 mmol/L AO ADM SS LABORATORYOrdered By: Kiarra Jacobo on 09-23-2021 Calcium [Mass/Vol] 8.3 mg/dL Invalid Interpretation Code 8.4 - 10.2 mg/dL AO ADM SS Chloride [Moles/Vol] 101 mmol/L Invalid Interpretation Code 98 - 107 mmol/L AO ADM SS CO2 [Moles/Vol] 25 mmol/L Invalid Interpretation Code 22 - 29 mmol/L AO ADM SS Creatinine [Mass/Vol] 0.73 mg/dL Invalid Interpretation Code 0.55 - 1.02 mg/dL AO ADM SS Electrolyte Balance 11.0 mEq/L Invalid Interpretation Code AO ADM SS Glucose [Mass/Vol] 120 mg/dL Invalid Interpretation Code 70 - 105 mg/dL AO ADM SS Potassium [Moles/Vol] 3.1 mmol/L Invalid Interpretation Code 3.5 - 5.1 mmol/L AO ADM SS Sodium [Moles/Vol] 137 mmol/L Invalid Interpretation Code 136 - 145 mmol/L AO ADM SS Urea nitrogen [Mass/Vol] 15 mg/dL Invalid Interpretation Code 7 - 18 mg/dL AO ADM SS Urea nitrogen/Creatinine [Mass ratio] 21 ratio Invalid Interpretation Code 7 - 27 ratio AO ADM SS LABORATORYOrdered By: SYSTEM SYSTEM on 09-23-2021 GFR 104 ml/min/1.73sqm Invalid Interpretation Code AO Chemistry S GFR Non- 86 ml/min/1.73sqm Invalid Interpretation Code AO Chemistry S LABORATORYOrdered By: Carie Borjas on 09-23-2021 Basophil, Absolute 0.10 103/mcL Invalid Interpretation Code 0.00 - 0.19 10^3/mcL AO Auto Heme SS Basophils/100 WBC (Bld) 0.7 % Invalid Interpretation Code 0.0 - 2.5 % AO Auto Heme SS Eosinophil, Absolute 0.20 103/mcL Invalid Interpretation Code 0.00 - 0.40 10^3/mcL AO Auto Heme SS Eosinophils/100 WBC (Bld) 2.6 % Invalid Interpretation Code 0.0 - 7.0 % AO Auto Heme SS Erythrocyte distribution width (RBC) [Ratio] 12.3 % Invalid Interpretation Code 11.5 - 14.5 % AO Auto Heme SS Hematocrit (Bld) [Volume fraction] 40.9 % Invalid Interpretation Code 37.0 - 47.0 % AO Auto Heme SS Hemoglobin (Bld) [Mass/Vol] 13.9 G/dL Invalid Interpretation Code 12.0 - 16.0 G/dL AO Auto Heme SS Lymphocyte, Absolute 3.30 103/mcL Invalid Interpretation Code 0.77 - 3.85 10^3/mcL AO Auto Heme SS Lymphocytes/100 WBC (Bld) 37.9 % Invalid Interpretation Code 10.0 - 50.0 % AO Auto Heme SS Magnesium [Mass/Vol] 2.6 mg/dL Invalid Interpretation Code 1.8 - 2.4 mg/dL AO Chemistry S MCH (RBC) [Entitic mass] 30.0 pg Invalid Interpretation Code 27.0 - 31.2 pg AO Auto Heme SS MCHC (RBC) [Mass/Vol] 33.9 G/dL Invalid Interpretation Code 33.0 - 37.0 G/dL AO Auto Heme SS MCV (RBC) [Entitic vol] 88.5 fL Invalid Interpretation Code 80.0 - 94.0 fL AO Auto Heme SS Monocyte, Absolute 0.70 103/mcL Invalid Interpretation Code 0.15 - 1.00 10^3/mcL AO Auto Heme SS Monocytes/100 WBC (Bld) 7.9 % Invalid Interpretation Code 1.7 - 13.0 % AO Auto Heme SS Neutrophil, Absolute 4.50 103/mcL Invalid Interpretation Code 2.85 - 6.16 10^3/mcL AO Auto Heme SS Neutrophils/100 WBC (Bld) 50.9 % Invalid Interpretation Code 37.0 - 80.0 % AO Auto Heme SS Platelet mean volume (Bld) [Entitic vol] 6.5 fL Invalid Interpretation Code 7.4 - 10.4 fL AO Auto Heme SS Platelets (Bld) [#/Vol] 368 103/mcL Invalid Interpretation Code 130 - 400 10^3/mcL AO Auto Heme SS RBC (Bld) [#/Vol] 4.63 106/mcL Invalid Interpretation Code 4.20 - 5.40 10^6/mcL AO Auto Heme SS WBC (Bld) [#/Vol] 8.80 103/mcL Invalid Interpretation Code 4.60 - 10.80 10^3/mcL AO Auto Heme SS LABORATORYOrdered By: Kiarra Jacobo on 09-22-2021 Albumin BCP dye [Mass/Vol] 4.4 G/dL Invalid Interpretation Code 3.5 - 5.0 G/dL AO ADM SS Albumin/Globulin [Mass ratio] 1.3 {ratio} Invalid Interpretation Code 1.1 - 2.5 ratio AO ADM SS ALP [Catalytic activity/Vol] 153 U/L Invalid Interpretation Code 40 - 135 U/L AO ADM SS ALT With P-5'-P [Catalytic activity/Vol] 80 U/L Invalid Interpretation Code 14 - 59 U/L AO ADM SS AST With P-5'-P [Catalytic activity/Vol] 46 U/L Invalid Interpretation Code 10 - 40 U/L AO ADM SS Bilirubin [Mass/Vol] 0.3 mg/dL Invalid Interpretation Code 0.2 - 1.0 mg/dL AO ADM SS Globulin 3.4 G/dL Invalid Interpretation Code AO ADM SS Lipase [Catalytic activity/Vol] 107 U/L Invalid Interpretation Code 73 - 393 U/L AO ADM SS Protein [Mass/Vol] 7.8 G/dL Invalid Interpretation Code 6.4 - 8.2 G/dL AO ADM SS LABORATORYOrdered By: Shavon Dean on 09-22-2021 Basophil, Absolute 0.00 103/mcL Invalid Interpretation Code 0.00 - 0.19 10^3/mcL AO Auto Heme SS Basophils/100 WBC (Bld) 0.3 % Invalid Interpretation Code 0.0 - 2.5 % AO Auto Heme SS Eosinophil, Absolute 0.10 103/mcL Invalid Interpretation Code 0.00 - 0.40 10^3/mcL AO Auto Heme SS Eosinophils/100 WBC (Bld) 0.8 % Invalid Interpretation Code 0.0 - 7.0 % AO Auto Heme SS Erythrocyte distribution width (RBC) [Ratio] 12.4 % Invalid Interpretation Code 11.5 - 14.5 % AO Auto Heme SS Hematocrit (Bld) [Volume fraction] 47.6 % Invalid Interpretation Code 37.0 - 47.0 % AO Auto Heme SS Hemoglobin (Bld) [Mass/Vol] 16.5 G/dL Invalid Interpretation Code 12.0 - 16.0 G/dL AO Auto Heme SS Lymphocyte, Absolute 2.40 103/mcL Invalid Interpretation Code 0.77 - 3.85 10^3/mcL AO Auto Heme SS Lymphocytes/100 WBC (Bld) 18.4 % Invalid Interpretation Code 10.0 - 50.0 % AO Auto Heme SS MCH (RBC) [Entitic mass] 30.2 pg Invalid Interpretation Code 27.0 - 31.2 pg AO Auto Heme SS MCHC (RBC) [Mass/Vol] 34.6 G/dL Invalid Interpretation Code 33.0 - 37.0 G/dL AO Auto Heme SS MCV (RBC) [Entitic vol] 87.2 fL Invalid Interpretation Code 80.0 - 94.0 fL AO Auto Heme SS Monocyte, Absolute 0.70 103/mcL Invalid Interpretation Code 0.15 - 1.00 10^3/mcL AO Auto Heme SS Monocytes/100 WBC (Bld) 5.0 % Invalid Interpretation Code 1.7 - 13.0 % AO Auto Heme SS Neutrophil, Absolute 10.10 103/mcL Invalid Interpretation Code 2.85 - 6.16 10^3/mcL AO Auto Heme SS Neutrophils/100 WBC (Bld) 75.5 % Invalid Interpretation Code 37.0 - 80.0 % AO Auto Heme SS Platelet mean volume (Bld) [Entitic vol] 6.6 fL Invalid Interpretation Code 7.4 - 10.4 fL AO Auto Heme SS Platelets (Bld) [#/Vol] 400 103/mcL Invalid Interpretation Code 130 - 400 10^3/mcL AO Auto Heme SS RBC (Bld) [#/Vol] 5.45 106/mcL Invalid Interpretation Code 4.20 - 5.40 10^6/mcL AO Auto Heme SS WBC (Bld) [#/Vol] 13.30 103/mcL Invalid Interpretation Code 4.60 - 10.80 10^3/mcL AO Auto Heme SS LABORATORYOrdered By: Carie Borjas on 09-09-2021 Albumin BCP dye [Mass/Vol] 4.0 G/dL Invalid Interpretation Code 3.5 - 5.0 G/dL AO ADM SS Albumin/Globulin [Mass ratio] 1.3 {ratio} Invalid Interpretation Code 1.1 - 2.5 ratio AO ADM SS ALP [Catalytic activity/Vol] 188 U/L Invalid Interpretation Code 40 - 135 U/L AO ADM SS ALT With P-5'-P [Catalytic activity/Vol] 96 U/L Invalid Interpretation Code 14 - 59 U/L AO ADM SS AST With P-5'-P [Catalytic activity/Vol] 52 U/L Invalid Interpretation Code 10 - 40 U/L AO ADM SS Bilirubin [Mass/Vol] 0.6 mg/dL Invalid Interpretation Code 0.2 - 1.0 mg/dL AO ADM SS Calcium [Mass/Vol] 9.8 mg/dL Invalid Interpretation Code 8.4 - 10.2 mg/dL AO ADM SS Chloride [Moles/Vol] 89 mmol/L Invalid Interpretation Code 98 - 107 mmol/L AO ADM SS CO2 [Moles/Vol] 32 mmol/L Invalid Interpretation Code 22 - 29 mmol/L AO ADM SS Creatinine [Mass/Vol] 1.38 mg/dL Invalid Interpretation Code 0.55 - 1.02 mg/dL AO ADM SS Electrolyte Balance 13.0 mEq/L Invalid Interpretation Code AO ADM SS Globulin 3.0 G/dL Invalid Interpretation Code AO ADM SS Glucose [Mass/Vol] 142 mg/dL Invalid Interpretation Code 70 - 105 mg/dL AO ADM SS Lipase [Catalytic activity/Vol] 63 U/L Invalid Interpretation Code 73 - 393 U/L AO ADM SS Potassium [Moles/Vol] 3.2 mmol/L Invalid Interpretation Code 3.5 - 5.1 mmol/L AO ADM SS Protein [Mass/Vol] 7.0 G/dL Invalid Interpretation Code 6.4 - 8.2 G/dL AO ADM SS Sodium [Moles/Vol] 134 mmol/L Invalid Interpretation Code 136 - 145 mmol/L AO ADM SS Urea nitrogen [Mass/Vol] 40 mg/dL Invalid Interpretation Code 7 - 18 mg/dL AO ADM SS Urea nitrogen/Creatinine [Mass ratio] 29 ratio Invalid Interpretation Code 7 - 27 ratio AO ADM SS LABORATORYOrdered By: Cynthia Garcia on 09-09-2021 Basophil, Absolute 0.00 103/mcL Invalid Interpretation Code 0.00 - 0.19 10^3/mcL AO Auto Heme SS Basophils/100 WBC (Bld) 0.5 % Invalid Interpretation Code 0.0 - 2.5 % AO Auto Heme SS Eosinophil, Absolute 0.10 103/mcL Invalid Interpretation Code 0.00 - 0.40 10^3/mcL AO Auto Heme SS Eosinophils/100 WBC (Bld) 1.7 % Invalid Interpretation Code 0.0 - 7.0 % AO Auto Heme SS Erythrocyte distribution width (RBC) [Ratio] 12.8 % Invalid Interpretation Code 11.5 - 14.5 % AO Auto Heme SS Hematocrit (Bld) [Volume fraction] 43.2 % Invalid Interpretation Code 37.0 - 47.0 % AO Auto Heme SS Hemoglobin (Bld) [Mass/Vol] 15.0 G/dL Invalid Interpretation Code 12.0 - 16.0 G/dL AO Auto Heme SS Lymphocyte, Absolute 1.60 103/mcL Invalid Interpretation Code 0.77 - 3.85 10^3/mcL AO Auto Heme SS Lymphocytes/100 WBC (Bld) 18.1 % Invalid Interpretation Code 10.0 - 50.0 % AO Auto Heme SS MCH (RBC) [Entitic mass] 30.6 pg Invalid Interpretation Code 27.0 - 31.2 pg AO Auto Heme SS MCHC (RBC) [Mass/Vol] 34.7 G/dL Invalid Interpretation Code 33.0 - 37.0 G/dL AO Auto Heme SS MCV (RBC) [Entitic vol] 88.3 fL Invalid Interpretation Code 80.0 - 94.0 fL AO Auto Heme SS Monocyte, Absolute 0.50 103/mcL Invalid Interpretation Code 0.15 - 1.00 10^3/mcL AO Auto Heme SS Monocytes/100 WBC (Bld) 5.8 % Invalid Interpretation Code 1.7 - 13.0 % AO Auto Heme SS Neutrophil, Absolute 6.60 103/mcL Invalid Interpretation Code 2.85 - 6.16 10^3/mcL AO Auto Heme SS Neutrophils/100 WBC (Bld) 73.9 % Invalid Interpretation Code 37.0 - 80.0 % AO Auto Heme SS Platelet mean volume (Bld) [Entitic vol] 6.4 fL Invalid Interpretation Code 7.4 - 10.4 fL AO Auto Heme SS Platelets (Bld) [#/Vol] 334 103/mcL Invalid Interpretation Code 130 - 400 10^3/mcL AO Auto Heme SS RBC (Bld) [#/Vol] 4.90 106/mcL Invalid Interpretation Code 4.20 - 5.40 10^6/mcL AO Auto Heme SS WBC (Bld) [#/Vol] 8.90 103/mcL Invalid Interpretation Code 4.60 - 10.80 10^3/mcL AO Auto Heme SS LABORATORYOrdered By: SYSTEM SYSTEM on 09-09-2021 GFR 50 ml/min/1.73sqm Invalid Interpretation Code AO Chemistry S GFR Non- 41 ml/min/1.73sqm Invalid Interpretation Code AO Chemistry S LABORATORYOrdered By: Gil Hardy on 09-09-2021 Amphetamines Screen Ql (U) Negative (09/09/21 12:25 PM) Invalid Interpretation Code AO Manual Urine SS Appearance (U) Clear (09/09/21 12:25 PM) Invalid Interpretation Code Clear AO Auto Urine SS Barbiturates Screen Ql (U) Negative (09/09/21 12:25 PM) Invalid Interpretation Code AO Manual Urine SS Benzodiazepines Ql (U) Negative (09/09/21 12:25 PM) Invalid Interpretation Code AO Manual Urine SS Benzoylecgonine Screen Ql (U) Negative (09/09/21 12:25 PM) Invalid Interpretation Code AO Manual Urine SS Bilirubin Ql (U) Negative (09/09/21 12:25 PM) Invalid Interpretation Code Negative AO Auto Urine SS Cannabinoids tested Screen Nom (U) Negative (09/09/21 12:25 PM) Invalid Interpretation Code AO Manual Urine SS Color (U) Yellow (09/09/21 12:25 PM) Invalid Interpretation Code AO Auto Urine SS Glucose Test strip (U) [Mass/Vol] Negative Invalid Interpretation Code Negativemg/d L AO Auto Urine SS Hemoglobin Auto test strip (U) [Mass/Vol] Negative (09/09/21 12:25 PM) Invalid Interpretation Code Negative AO Auto Urine SS Ketones Ql (U) Negative Invalid Interpretation Code Negativemg/d L AO Auto Urine SS Methadone Screen Ql (U) Negative (09/09/21 12:25 PM) Invalid Interpretation Code AO Manual Urine SS Opiates Screen Ql (U) Negative (09/09/21 12:25 PM) Invalid Interpretation Code AO Manual Urine SS Phencyclidine Ql (U) Negative (09/09/21 12:25 PM) Invalid Interpretation Code AO Manual Urine SS Tricyclic antidepressants Screen Ql (U) Negative (09/09/21 12:25 PM) Invalid Interpretation Code AO Manual Urine SS UA Leuk Est Negative (09/09/21 12:25 PM) Invalid Interpretation Code Negative AO Auto Urine SS UA Nitrite Negative (09/09/21 12:25 PM) Invalid Interpretation Code Negative AO Auto Urine SS UA pH 7.0 (09/09/21 12:25 PM) Invalid Interpretation Code 5.0 - 8.0 AO Auto Urine SS UA Protein Negative Invalid Interpretation Code Negativemg/d L AO Auto Urine SS UA Spec Grav 1.020 (09/09/21 12:25 PM) Invalid Interpretation Code 1.015-1.025 AO Auto Urine SS UA Specimen Type Clean Catch (09/09/21 12:25 PM) Invalid Interpretation Code AO Auto Urine SS UA Urobilinogen 0.2 E.U./dL Invalid Interpretation Code 0.2-1.0E.U./ dL AO Auto Urine SS LABORATORYOrdered By: Carie Borjas on 08-06-2021 Appearance (U) Clear (08/06/21 4:00 PM) Invalid Interpretation Code Clear AO Auto Urine SS Bilirubin Ql (U) Negative (08/06/21 4:00 PM) Invalid Interpretation Code Negative AO Auto Urine SS Color (U) Yellow (08/06/21 4:00 PM) Invalid Interpretation Code AO Auto Urine SS Glucose Test strip (U) [Mass/Vol] Negative Invalid Interpretation Code Negativemg/d L AO Auto Urine SS HCG ( test) Ql Negative (08/06/21 4:00 PM) Invalid Interpretation Code AO Manual Urine SS Hemoglobin Auto test strip (U) [Mass/Vol] Negative (08/06/21 4:00 PM) Invalid Interpretation Code Negative AO Auto Urine SS Ketones Ql (U) Negative Invalid Interpretation Code Negativemg/d L AO Auto Urine SS test (u) int Not detected Invalid Interpretation Code AO Manual Urine SS UA Leuk Est Negative (08/06/21 4:00 PM) Invalid Interpretation Code Negative AO Auto Urine SS UA Nitrite Negative (08/06/21 4:00 PM) Invalid Interpretation Code Negative AO Auto Urine SS UA pH 6.0 (08/06/21 4:00 PM) Invalid Interpretation Code 5.0 - 8.0 AO Auto Urine SS UA Protein Negative Invalid Interpretation Code Negativemg/d L AO Auto Urine SS UA Spec Grav >=1.030 *ABN* (08/06/21 4:00 PM) Invalid Interpretation Code 1.015-1.025 AO Auto Urine SS UA Specimen Type Clean Catch (08/06/21 4:00 PM) Invalid Interpretation Code AO Auto Urine SS UA Urobilinogen 0.2 E.U./dL Invalid Interpretation Code 0.2-1.0E.U./ dL AO Auto Urine SS Basophil, Absolute 0.10 103/mcL Invalid Interpretation Code 0.00 - 0.19 10^3/mcL AO Auto Heme SS Basophils/100 WBC (Bld) 1.2 % Invalid Interpretation Code 0.0 - 2.5 % AO Auto Heme SS Eosinophil, Absolute 0.20 103/mcL Invalid Interpretation Code 0.00 - 0.40 10^3/mcL AO Auto Heme SS Eosinophils/100 WBC (Bld) 4.1 % Invalid Interpretation Code 0.0 - 7.0 % AO Auto Heme SS Erythrocyte distribution width (RBC) [Ratio] 12.4 % Invalid Interpretation Code 11.5 - 14.5 % AO Auto Heme SS Hematocrit (Bld) [Volume fraction] 42.5 % Invalid Interpretation Code 37.0 - 47.0 % AO Auto Heme SS Hemoglobin (Bld) [Mass/Vol] 14.2 G/dL Invalid Interpretation Code 12.0 - 16.0 G/dL AO Auto Heme SS Lymphocyte, Absolute 2.30 103/mcL Invalid Interpretation Code 0.77 - 3.85 10^3/mcL AO Auto Heme SS Lymphocytes/100 WBC (Bld) 42.4 % Invalid Interpretation Code 10.0 - 50.0 % AO Auto Heme SS MCH (RBC) [Entitic mass] 30.4 pg Invalid Interpretation Code 27.0 - 31.2 pg AO Auto Heme SS MCHC (RBC) [Mass/Vol] 33.4 G/dL Invalid Interpretation Code 33.0 - 37.0 G/dL AO Auto Heme SS MCV (RBC) [Entitic vol] 91.1 fL Invalid Interpretation Code 80.0 - 94.0 fL AO Auto Heme SS Monocyte, Absolute 0.30 103/mcL Invalid Interpretation Code 0.15 - 1.00 10^3/mcL AO Auto Heme SS Monocytes/100 WBC (Bld) 6.2 % Invalid Interpretation Code 1.7 - 13.0 % AO Auto Heme SS Neutrophil, Absolute 2.50 103/mcL Invalid Interpretation Code 2.85 - 6.16 10^3/mcL AO Auto Heme SS Neutrophils/100 WBC (Bld) 46.1 % Invalid Interpretation Code 37.0 - 80.0 % AO Auto Heme SS Platelet mean volume (Bld) [Entitic vol] 6.3 fL Invalid Interpretation Code 7.4 - 10.4 fL AO Auto Heme SS Platelets (Bld) [#/Vol] 310 103/mcL Invalid Interpretation Code 130 - 400 10^3/mcL AO Auto Heme SS RBC (Bld) [#/Vol] 4.66 106/mcL Invalid Interpretation Code 4.20 - 5.40 10^6/mcL AO Auto Heme SS WBC (Bld) [#/Vol] 5.50 103/mcL Invalid Interpretation Code 4.60 - 10.80 10^3/mcL AO Auto Heme SS LABORATORYOrdered By: Gil Hardy on 08-06-2021 Calcium [Mass/Vol] 9.3 mg/dL Invalid Interpretation Code 8.4 - 10.2 mg/dL AO ADM SS Chloride [Moles/Vol] 104 mmol/L Invalid Interpretation Code 98 - 107 mmol/L AO ADM SS CO2 [Moles/Vol] 24 mmol/L Invalid Interpretation Code 22 - 29 mmol/L AO ADM SS Creatinine [Mass/Vol] 1.15 mg/dL Invalid Interpretation Code 0.55 - 1.02 mg/dL AO ADM SS Electrolyte Balance 13.0 mEq/L Invalid Interpretation Code AO ADM SS Glucose [Mass/Vol] 129 mg/dL Invalid Interpretation Code 70 - 105 mg/dL AO ADM SS Magnesium [Mass/Vol] 2.4 mg/dL Invalid Interpretation Code 1.8 - 2.4 mg/dL AO ADM SS Natriuretic peptide.B prohormone N-Terminal [Mass/Vol] 31 pg/mL Invalid Interpretation Code 0 - 125 pg/mL AO ADM SS Potassium [Moles/Vol] 4.1 mmol/L Invalid Interpretation Code 3.5 - 5.1 mmol/L AO ADM SS Sodium [Moles/Vol] 141 mmol/L Invalid Interpretation Code 136 - 145 mmol/L AO ADM SS Troponin I.cardiac DL <= 0.01 ng/mL [Mass/Vol] 4.2 ng/L Invalid Interpretation Code 0.0 - 51.4 ng/L AO ADM SS TSH Qn 1.68 m[IU]/L Invalid Interpretation Code 0.36 - 3.74 mcIU/mL AO ADM SS Urea nitrogen [Mass/Vol] 20 mg/dL Invalid Interpretation Code 7 - 18 mg/dL AO ADM SS Urea nitrogen/Creatinine [Mass ratio] 17 ratio Invalid Interpretation Code 7 - 27 ratio AO ADM SS LABORATORYOrdered By: SYSTEM SYSTEM on 08-06-2021 GFR 62 ml/min/1.73sqm Invalid Interpretation Code AO Chemistry S GFR Non- 51 ml/min/1.73sqm Invalid Interpretation Code AO Chemistry S LABORATORYOrdered By: Cynthia Garcia on 07-02-2021 Basophil, Absolute 0.00 103/mcL Invalid Interpretation Code 0.00 - 0.19 10^3/mcL AO Auto Heme SS Basophils/100 WBC (Bld) 0.7 % Invalid Interpretation Code 0.0 - 2.5 % AO Auto Heme SS Eosinophil, Absolute 0.20 103/mcL Invalid Interpretation Code 0.00 - 0.40 10^3/mcL AO Auto Heme SS Eosinophils/100 WBC (Bld) 3.7 % Invalid Interpretation Code 0.0 - 7.0 % AO Auto Heme SS Erythrocyte distribution width (RBC) [Ratio] 12.1 % Invalid Interpretation Code 11.5 - 14.5 % AO Auto Heme SS Hematocrit (Bld) [Volume fraction] 40.4 % Invalid Interpretation Code 37.0 - 47.0 % AO Auto Heme SS Hemoglobin (Bld) [Mass/Vol] 13.5 G/dL Invalid Interpretation Code 12.0 - 16.0 G/dL AO Auto Heme SS INR Coag (PPP) [Relative time] 2.7 {INR} Invalid Interpretation Code 0.9 - 1.2 ratio AO Coag SS Lymphocyte, Absolute 2.00 103/mcL Invalid Interpretation Code 0.77 - 3.85 10^3/mcL AO Auto Heme SS Lymphocytes/100 WBC (Bld) 33.0 % Invalid Interpretation Code 10.0 - 50.0 % AO Auto Heme SS MCH (RBC) [Entitic mass] 31.7 pg Invalid Interpretation Code 27.0 - 31.2 pg AO Auto Heme SS MCHC (RBC) [Mass/Vol] 33.3 G/dL Invalid Interpretation Code 33.0 - 37.0 G/dL AO Auto Heme SS MCV (RBC) [Entitic vol] 95.3 fL Invalid Interpretation Code 80.0 - 94.0 fL AO Auto Heme SS Monocyte, Absolute 0.50 103/mcL Invalid Interpretation Code 0.15 - 1.00 10^3/mcL AO Auto Heme SS Monocytes/100 WBC (Bld) 8.5 % Invalid Interpretation Code 1.7 - 13.0 % AO Auto Heme SS Neutrophil, Absolute 3.20 103/mcL Invalid Interpretation Code 2.85 - 6.16 10^3/mcL AO Auto Heme SS Neutrophils/100 WBC (Bld) 54.1 % Invalid Interpretation Code 37.0 - 80.0 % AO Auto Heme SS Platelet mean volume (Bld) [Entitic vol] 6.1 fL Invalid Interpretation Code 7.4 - 10.4 fL AO Auto Heme SS Platelets (Bld) [#/Vol] 263 103/mcL Invalid Interpretation Code 130 - 400 10^3/mcL AO Auto Heme SS PT Coag (PPP) [Time] 31.0 s Invalid Interpretation Code 9.7 - 14.3 seconds AO Coag SS RBC (Bld) [#/Vol] 4.25 106/mcL Invalid Interpretation Code 4.20 - 5.40 10^6/mcL AO Auto Heme SS WBC (Bld) [#/Vol] 5.90 103/mcL Invalid Interpretation Code 4.60 - 10.80 10^3/mcL AO Auto Heme SS LABORATORYOrdered By: Gil Hardy on 07-02-2021 Calcium.ionized (Bld) [Moles/Vol] 1.01 mmol/L Invalid Interpretation Code 1.12 - 1.32 mmol/L AO Blood Gas SS Chloride [Moles/Vol] 102 mmol/L Invalid Interpretation Code 98 - 107 mmol/L AO ADM SS CO2 [Moles/Vol] 24 mmol/L Invalid Interpretation Code 22 - 29 mmol/L AO ADM SS Creatinine [Mass/Vol] 1.09 mg/dL Invalid Interpretation Code 0.55 - 1.02 mg/dL AO ADM SS Electrolyte Balance 13.0 mEq/L Invalid Interpretation Code AO ADM SS Glucose [Mass/Vol] 111 mg/dL Invalid Interpretation Code 70 - 105 mg/dL AO ADM SS Potassium [Moles/Vol] 4.4 mmol/L Invalid Interpretation Code 3.5 - 5.1 mmol/L AO ADM SS Sodium [Moles/Vol] 139 mmol/L Invalid Interpretation Code 136 - 145 mmol/L AO ADM SS Urea nitrogen [Mass/Vol] 25 mg/dL Invalid Interpretation Code 7 - 18 mg/dL AO ADM SS Urea nitrogen/Creatinine [Mass ratio] 23 ratio Invalid Interpretation Code 7 - 27 ratio AO ADM SS LABORATORYOrdered By: SYSTEM SYSTEM on 07-02-2021 GFR 66 ml/min/1.73sqm Invalid Interpretation Code AO ADM SS GFR Non- 54 ml/min/1.73sqm Invalid Interpretation Code AO ADM SS LABORATORYOrdered By: Dorothea Hunter on 06-30-2021 Calcium [Mass/Vol] 8.9 mg/dL Invalid Interpretation Code 8.4 - 10.2 mg/dL AO ADM SS Chloride [Moles/Vol] 105 mmol/L Invalid Interpretation Code 98 - 107 mmol/L AO ADM SS CO2 [Moles/Vol] 19 mmol/L Invalid Interpretation Code 22 - 29 mmol/L AO ADM SS Creatinine [Mass/Vol] 0.94 mg/dL Invalid Interpretation Code 0.55 - 1.02 mg/dL AO ADM SS Electrolyte Balance 16.0 mEq/L Invalid Interpretation Code AO ADM SS Glucose [Mass/Vol] 123 mg/dL Invalid Interpretation Code 70 - 105 mg/dL AO ADM SS Potassium [Moles/Vol] 4.4 mmol/L Invalid Interpretation Code 3.5 - 5.1 mmol/L AO ADM SS Sodium [Moles/Vol] 140 mmol/L Invalid Interpretation Code 136 - 145 mmol/L AO ADM SS Urea nitrogen [Mass/Vol] 24 mg/dL Invalid Interpretation Code 7 - 18 mg/dL AO ADM SS Urea nitrogen/Creatinine [Mass ratio] 26 ratio Invalid Interpretation Code 7 - 27 ratio AO ADM SS LABORATORYOrdered By: SYSTEM SYSTEM on 06-30-2021 GFR 78 ml/min/1.73sqm Invalid Interpretation Code AO Chemistry S GFR Non- 64 ml/min/1.73sqm Invalid Interpretation Code AO Chemistry S LABORATORYOrdered By: Gil Hardy on 06-30-2021 Natriuretic peptide.B prohormone N-Terminal [Mass/Vol] 477 pg/mL Invalid Interpretation Code 0 - 125 pg/mL AO ADM SS CNPNon 03-02-2021 [facility] DOROTHEA RUTLEDGE ([id number]) 1975 F Date Time Provider Department 03/02/21 JOSELYN CORDERO During your visit today, we recorded the following information about you: Vito Bonilla Commodity Director [facility] 03/02/2021 10:04 AM Signed Pt sent a my chart asking to schedule a virtual appt with Dr. Aldrich. I let her know the next available here in [place] is in late Apr. Or she could call main appt desk and get scheduled with a VV through them probably sooner. I left both numbers for her to call. Allergies As of Date: 03/02/2021 Noted Allergy Reaction MORPHINE 04/12/2016 14 - Other: See Comments Comments: Hypotension NEURONTIN (GABAPENTIN) 10/23/2013 5 - Intolerance PENICILLINS 10/23/2013 5 - Intolerance SULFA (SULFONAMIDE ANTIBIOTICS) 10/23/2013 5 - Intolerance Date Reviewed: 02/28/2021 Reviewed by: Tia Kwan RN - Fully Assessed Reason for Visit: Scheduling [3921] Cmt: Neurology F/U Prescriptions as of 03/02/2021 Sig: ZONISAMIDE 100 MG CAPSULE 2 capsules a day LACOSAMIDE 100 MG TABLET 1 tab in am and 2 tabs in pm PHENAZOPYRIDINE 200 MG TABLET Take 1 tablet by mouth three * CLINDAMYCIN HCL 300 MG CAPSULE Take 1 capsule by mouth four * Patient not taking: Reported on 04/14/2020 AMITRIPTYLINE 50 MG TABLET Take 1 tablet by mouth daily * Patient not taking: Reported on 04/14/2020 BUTALBITAL-ACETAMINOPHE N-CAFF* Take 1 tablet by mouth every * MELATONIN 5 MG CAPSULE Take 6 mg by mouth daily at b* ROPINIROLE 2 MG TABLET 2 mg once daily. HYDROXYZINE PAMOATE 25 MG CAP* POTASSIUM CHLORIDE ER 20 MEQ * 20 mEq twice daily. RISPERDAL ORAL Take by mouth. 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 RECORD# NUMBER DATE DATE TYPE DOROTHEA RUTLEDGE [id number] F 43 12/03/19 12/03/19 3 M [id number] ROOM: ER DATE OF : 1975 DICTATING PHYSICIAN: Parul Cardona CHIEF COMPLAINT: Headache. HISTORY OF PRESENT ILLNESS: The patient is a 43-year-old female who presents to the emergency department with a chief complaint of headache. She reports that she has had this headache for most of the day. She states she has taken Naproxen and Benadryl without significant relief. She states that she often gets these headaches. She describes it as an aching pain behind her eye and down the left side of her face. She states that this is like a usual headache for her. She reports the last headache she had like this was probably about a week ago. She denies any head trauma or injury. She is on Coumadin for Factor V Leiden. She states that her last check was therapeutic. She denies fevers, coughing, congestion, neck pain, chest pain, difficulty breathing, abdominal pain, nausea, vomiting, dysuria, diarrhea, constipation and black or bloody stools. She denies weakness, numbness or tingling. She denies any significant vision changing aside from mild blurred vision which she states is consistent with her usual headache. PAST MEDICAL HISTORY: Epilepsy, DVT, PE, Factor V Leiden, Asthma, migraines, gallstones, colitis, depression and anxiety. PAST SURGICAL HISTORY: ERCP, sphincterotomy, IVC filter, hysterectomy. She does not have menstrual periods. SOCIAL HISTORY: She is a current everyday smoker. She uses E-cigarettes. Denies any illicit drug use or regular alcohol use. REVIEW OF SYSTEMS: Ten point review of systems is negative, aside from what is noted in the HPI. PHYSICAL EXAMINATION: Vital signs: Temp 99.3, pulse 97, respirations 16, blood pressure 135/105, oxygen saturation 99% on room air. General: The patient is well developed and well nourished. She is sitting up in bed in no acute distress. She is awake and alert. Skin: No rashes or erythema. HEENT: Head is normocephalic and atraumatic. Pupils are equally and reactive to light. Extraocular muscles are intact. External ears normal. No purulence. Nose with midline septum and no deformity or drainage. Mouth: Moist mucous membranes. Intact oral mucosa. Throat: No posterior oropharynx edema or erythema. Neck: Supple without significant Page 1 of 2 DOROTHEA RUTLEDGE Emergency Room Report DOROTHEA RUTLEDGE : 1975 lymphadenopathy. No rigidity or meningismus. Patient able to move neck through full range of motion without difficulty or pain. Chest: Lungs are clear to auscultation. No wheezing, rales or rhonchi. The patient is not in any respiratory distress. Cardiac: Regular rate and rhythm. No murmur. Abdomen: Soft without rebound, rigidity, guarding or distension. Abdomen: Nontender. Extremities: Patient has good range of motion in all four extremities. No peripheral edema or calf tenderness. Vascular: 2+ radial pulses bilaterally. Neuro: Cranial nerves II through XII are grossly intact. Visual field testing is normal. The patient has equal strength and sensation in the upper and lower extremities. She has normal coordination and normal finger to nose testing. She ambulates with a normal steady gait. She is alert and oriented x4. DIAGNOSTIC DATA: INR is therapeutic at 2.5. EMERGENCY DEPARTMENT COURSE AND TREATMENT: The patient is a 43-year-old female who presents to the emergency department with a chief complaint of headache that feels like a usual headache for her. She does have history of migraines. She denies any head trauma or injury. She is on anticoagulation which is currently therapeutic at 2.5. She has no focal neurologic deficits on exam. She states that this headache is similar to headaches that she gets. The patient is treated symptomatically with IV fluids and Reglan. Upon reevaluation she states that her pain has decreased by half and she is feeling much better. She is given Decadron for further pain relief and is advised that this will work over 3 days. The patient is observed in the department and is able to sleep and states that she is feeling better. She is comfortable returning home. She understands reasons to return to the emergency department. She remained afebrile and nontoxic throughout her stay. DIAGNOSIS: Headache disorder. PLAN/DISPOSITION: Home with home care. I did discuss with the patient taking Tylenol for her symptoms and avoiding Naproxen as she is on Coumadin. Dictated By: Parul Cardona DO 12/03/19 21:58 JOB #: [id number] Transcribed By: vivian 12/04/19 13:51 Electronically signed by: E-SIGN: Parul Cardona D.O. 12/17/19 19:20 Page 2 of 2 DOROTHEA RUTLEDGE Emergency Room Report Normal [facility] PROTHROMBIN TIME AND INRon 0 12-03-2019 INR Coag (Bld) [Relative time] Normal [facility] Comment on above: Result Comment: PROT HROMBIN TIME AND INR Performed By: #### [id number] #### [place] [id number] INR Coag (PPP) [Relative time] 2.5 {INR} High 0.8 - 1.2 [facility] Comment on above: Result Comment: T HE HEMOSIL THROMBOPLASTIN REAGENT USED IN THE PROTHROMBIN TIME TEST INTERACTS WITH THE DRUG CUBICIN (DAPTOMYCIN) AND WILL RESULT IN FALSELY ELEVATED PT / INR RESULTS INR INTERPRETATION INR INDICATION PREVENTION AND TREATMENT OF THROMBOEMBOLISM ASSOCIATED WITH: 2.0 - 3.0 ATRIAL FIBRILLATION, BIOPROSTHETIC HEART VALVES, PULMONARY EMBOLISM, VENOUS THROMBOSIS, SYSTEMIC EMBOLISM POST MYOCARDIAL INFARCTION 2.5 - 3.5 MECHANICAL HEART VALVES Performed By: #### [id number] #### [facility],[address] [place], [place] [id number] PT-COUMADIN 27.5 sec High 9.3 - 14.1 [facility] Comment on above: Performed By: #### [id number] #### [facility],[address] [place], [place] [id number] Levetiracetamon 11-28-2019 Levetiracetam [Mass/Vol] 33.1 ug/mL Normal 12.0-46.0 [facility] Comment on above: Result Comment: This test is not suitable for patients receiving treatment with the drug brivaracetam (Briviact). The drug causes an interference that may lead to falsely elevated levetiracetam results. Reference ranges and high/low indicator flags are provided as general guidelines only. The treating physician must determine appropriate target levels/dosing based on the specific clinical situation. This test was developed and its performance characteristics determined by [facility] [place] ([facility]). It has not been cleared or approved by the FDA. [facility] is regulated under CLIA as qualified to perform high complexity testing. This test is used for clinical purposes. It should not be regarded as investigational or for research. Performing Laboratory: [facility] [place] [address] [place] [address] Performed By: #### K EPPX #### [place] [address] Topiramateon 11-28-2019 Topiramate 14.0 ug/mL Normal 5.0-20.0 [facility] Comment on above: Result Comment: Refe rence ranges and high/low indicator flags are provided as general guidelines only. The treating physician must determine appropriate target levels/dosing based on the specific clinical situation. This test was developed and its performance characteristics determined by [facility] [place] ([facility]). It has not been cleared or approved by the FDA. [facility] is regulated under CLIA as qualified to perform high complexity testing. This test is used for clinical purposes. It should not be regarded as investigational or for research. Performing Laboratory: [facility] [place] [address] [place] [address] Performed By: #### T OPIX #### [place] [address] Activated PTTon 11-27-2019 aPTT Coag (Bld) [Time] 30.4 s Normal 23.0-32.4 [facility] Comment on above: Result Comment: Unfr actionated Heparin Therapeutic Ranges: Standard Heparin Nomogram: 53 to 78 seconds (anti-Xa level of 0.3 to 0.7 U/mL) Low Dose/ACS Nomogram: 49 to 67 seconds (anti-Xa level of 0.2 to 0.5 U/mL) Stroke Treatment Nomogram: 49 to 67 seconds (anti-Xa level of 0.2 to 0.5 U/mL) Note: The APTT therapeutic range has been determined for the current lot of laboratory APTT reagent in use throughout the [facility]. Performed By: #### A PTT #### [place] [id number] Protimeon 11-27-2019 INR Coag (PPP) [Relative time] 1.97 {INR} High 0.90-1.30 [facility] Comment on above: Result Comment: Lory min K Antagonist (VKA) Therapeutic Range: INR 2 to 3 (Target INR of 2.5) Note: For patients treated with VKA drugs, such as warfarin, the [employer] 2012 Guideline recommends a therapeutic INR range of 2 to 3 (target INR of 2.5). This recommendation includes high-risk patients with antiphospholipid syndrome with previous arterial or venous thromboembolism, current-generation mechanical or bioprosthetic aortic heart valve replacement. Note: Patients with mechanical aortic valve replacement and additional risk factors for thromboembolic events (atrial fibrillation, previous thromboembolism, LV dysfunction, hypercoagulable conditions) or an older generation mechanical AVR (i.e., ball in-Cage) or any mechanical MVR should have a INR therapeutic range of 2.5 to 3.5 target INR of 3). Vargas GH, et al. Chest 2012; 141:7S-47S Arnel RA et al. [facility] 2017; 70: 252-289 Performed By: #### P T #### [address] [address] PT Coag (PPP) [Time] 21.0 s High 9.7-13.0 [facility] Comment on above: Performed By: #### P T #### [facility] [address] [place] [id number] Comprehensive Panelon 2019 ALP [Catalytic activity/Vol] 91 U/L Normal 45-117 [facility] Comment on above: Performed By: #### P 14 #### [facility] [address] [place], [place] [address] Bilirubin [Mass/Vol] 0.2 mg/dL Normal 0.2-1.0 [facility] Comment on above: Result Comment: Use of this assay is not recommended for patients undergoing treatment with eltrombopag due to the potential for falsely elevated results. Performed By: #### P 14 #### [facility] [address] [place], [place] [address] Protein [Mass/Vol] 6.4 g/dL Normal 6.4-8.2 [facility] Comment on above: Performed By: #### P 14 #### [facility] [address] [place] [address] Creatinine [Mass/Vol] 0.79 mg/dL Normal 0.51-0.95 [facility] Comment on above: Result Comment: Use of this assay is not recommended for patients undergoing treatment with phenindione, due to the potential for falsely depressed results. Performed By: #### P 14 #### [facility] [address] [place], [place] [address] ALT [Catalytic activity/Vol] 34 U/L Normal 12-78 [facility] Comment on above: Performed By: #### P 14 #### [facility] [address] [place], [place] [address] AST [Catalytic activity/Vol] 27 U/L Normal 15-37 [facility] Comment on above: Performed By: #### P 14 #### [facility] [address] [place], [place] [address] Albumin [Mass/Vol] 3.0 g/dL Low 3.4-5.0 [facility] Comment on above: Performed By: #### P 14 #### [facility] [address] [place] [address] Anion gap [Moles/Vol] 11 mmol/L Normal 8-16 [facility] Comment on above: Performed By: #### P 14 #### [facility] [address] [place], [place] [address] CO2 [Moles/Vol] 19 mmol/L Low 21-[address] [facility] Comment on above: Performed By: #### P 14 #### [facility] [address] [place], [place] [address] Glucose [Mass/Vol] 100 mg/dL High 70-99 [facility] Comment on above: Performed By: #### P 14 #### [facility] [address] [place], [place] [address] Urea nitrogen [Mass/Vol] 20 mg/dL High 7-18 [facility] Comment on above: Performed By: #### P 14 #### [facility] [address] [place], [place] [address] Calcium [Mass/Vol] 7.7 mg/dL Low 8.5-10.1 [facility] Comment on above: Performed By: #### P 14 #### [facility] [address] [place] [address] Chloride [Moles/Vol] 113 mmol/L High 98-107 [facility] Comment on above: Performed By: #### P 14 #### [facility] [address] [place] [address] Potassium [Moles/Vol] 3.7 mmol/L Normal 3.5-5.1 [facility] Comment on above: Performed By: #### P 14 #### [facility] [address] [place] [address] Sodium [Moles/Vol] 139 mmol/L Normal 136-145 [facility] Comment on above: Performed By: #### P 14 #### [facility] [address] [place], [place] [address] Hemogram/Diffon 11-26-2019 Abs Immature Grans 0.01 thou/cmm Normal 0.00-0.05 [facility] Comment on above: Performed By: #### C BCD1 #### [facility] [address] [place], [place] [address] Abs Neut (ANC) 2.15 thou/cmm Normal 1.56-6.13 [facility] Comment on above: Performed By: #### C BCD1 #### [facility] [address] [place] [address] Abs. Baso 0.03 thou/cmm Normal 0.01-0.08 [facility] Comment on above: Performed By: #### C BCD1 #### [facility] [address] [place] [address] Abs. [place] 0.37 thou/cmm Normal 0.27-0.70 [facility] Comment on above: Performed By: #### C BCD1 #### [facility] [address] [place] [address] Basophils/100 WBC (Bld) 0.7 % Normal [facility] Comment on above: Performed By: #### C BCD1 #### [facility] [address] [place] [address] Eosinophils (Bld) [#/Vol] 0.08 thou/cmm Normal 0.00-0.31 [facility] Comment on above: Performed By: #### C BCD1 #### [facility] [address] [place] [address] Eosinophils/100 WBC (Bld) 1.7 % Normal [facility] Comment on above: Performed By: #### C BCD1 #### [facility] [address] [place] [address] Erythrocyte distribution width (RBC) [Ratio] 11.8 % Normal 11.7-14.4 [facility] Comment on above: Performed By: #### C BCD1 #### [facility] [address] [place] [address] Hematocrit (Bld) [Volume fraction] 38.2 % Normal 34.1-44.9 [facility] Comment on above: Performed By: #### C BCD1 #### [facility] [address] [place] [address] Hemoglobin (Bld) [Mass/Vol] 12.8 g/dL Normal 11.2-15.7 [facility] Comment on above: Performed By: #### C BCD1 #### [facility] [address] [place] [address] Immature Grans 0.20 % Normal [facility] Comment on above: Performed By: #### C BCD1 #### [facility] [address] [place], [place] [address] Lymphocytes (Bld) [#/Vol] 1.96 thou/cmm Normal 1.18-3.74 [facility] Comment on above: Performed By: #### C BCD1 #### [facility] [address] [place], [place] [address] Lymphocytes/100 WBC (Bld) 42.6 % Normal [facility] Comment on above: Performed By: #### C BCD1 #### [facility] [address] [place], [place] [address] MCH (RBC) [Entitic mass] 33.2 pg High 25.6-32.2 [facility] Comment on above: Performed By: #### C BCD1 #### [facility] [address] [place], [place] [address] MCHC (RBC) [Mass/Vol] 33.5 % Normal 31.6-34.8 [facility] Comment on above: Performed By: #### C BCD1 #### [facility] [address] [place], [place] [address] MCV (RBC) [Entitic vol] 99.0 fL High 79.4-94.8 [facility] Comment on above: Performed By: #### C BCD1 #### [facility] [address] [place], [place] [address] Monocytes/100 WBC (Bld) 8.0 % Normal [facility] Comment on above: Performed By: #### C BCD1 #### [facility] [address] [place], [place] [address] Platelet mean volume (Bld) [Entitic vol] 8.7 fL Low 9.4-12.3 [facility] Comment on above: Performed By: #### C BCD1 #### [facility] [address] [place], [place] [address] Platelets (Bld) [#/Vol] 150 thou/cmm Low 182-369 [facility] Comment on above: Performed By: #### C BCD1 #### [facility] [address] [place], [place] [address] RBC (Bld) [#/Vol] 3.86 mil/cmm Low 3.93-5.22 [facility] Comment on above: Performed By: #### C BCD1 #### [facility] [address] [place] [address] RDW SD 42.7 fl Normal 36.4-46.3 [facility] Comment on above: Performed By: #### C BCD1 #### [place] [address] Seg Neutrophil 46.8 % Normal [facility] Comment on above: Performed By: #### C BCD1 #### [place] [address] WBC (Bld) [#/Vol] 4.60 thou/cmm Normal 3.98-10.04 [facility] Comment on above: Performed By: #### C BCD1 #### [place] [address] MDRD GFRon 11-26-2019 GFR/1.73 sq M predicted among non-blacks MDRD (S/P/Bld) [Vol rate/Area] mL/min/{1.73_m2} Normal >60mL/min/1. 73m2 [facility] Comment on above: Result Comment: If t he patient is , multiply the result by 1.210. Performed By: #### G FR #### [place] [address] Urine Drug Screenon 11-26-19 20 Urine Amphetamine Non-detected Normal Non-Detected [facility] Comment on above: Performed By: #### U DRG2 #### [place] [address] Urine Barbiturates Non-detected Normal Non-Detected [facility] Comment on above: Performed By: #### U DRG2 #### [place] [address] Urine Benzodiazepine Non-detected Normal Non-Detected [facility] Comment on above: Performed By: #### U DRG2 #### [place] [address] Urine Opiate Non-detected Normal Non-Detected [facility] Comment on above: Performed By: #### U DRG2 #### [facility] [address] [place], [place] [address] Urine PCP Non-detected Normal Non-Detected [facility] Comment on above: Performed By: #### U DRG2 #### [place] [address] Urine THC Non-detected Normal Non-Detected [facility] Comment on above: Result Comment: Urin e Drug Cutoff Levels Urine Amphetamine 500 ng/mL Urine Barbiturate 200 ng/mL Urine Benzodiazepines 200 ng/mL Urine Cocaine 150 ng/mL Urine Phencyclidine (PCP) 25 ng/mL Urine Opiates 300 ng/mL Urine THC 50 ng/mL The results of these analytes are unconfirmed and reported qualitatively as detected or non-detected relative to the cutoff value. Detected results indicate the sample is likely to contain the analyte. Non-detected results indicate that either the sample does not contain the analyte or it is present in concentrations below the cutoff level. This drug screen should be used for medical diagnostic purposes only. Performed By: #### U DRG2 #### [place] [address] Urine Cocaine Metab Non-detected Normal Non-Detected [facility] Comment on above: Performed By: #### U DRG2 #### [place] [address] Urine HCG, Qual.on 0 Beta HCG ( test) Ql (U) Negative Normal Negative [facility] Comment on above: Performed By: #### H CGUR #### [place] [address] Specific [place], Ur 1.007 Normal 1.005-1.030 [facility] Comment on above: Performed By: #### H CGUR #### [place] [address] CBC WITHOUT DIFFon 9 Erythrocyte distribution width (RBC) [Ratio] 11.1 % Low 11.7-15.0 [facility] Comment on above: Performed By: #### L IPS #### [facility] [place] [address] [place] [address] Hematocrit (Bld) [Volume fraction] 40.6 % Normal 36-44 [facility] Comment on above: Performed By: #### L IPS #### [facility] [place] [address] [place] [address] Hemoglobin (Bld) [Mass/Vol] 13.9 g/dL Normal 12.0-15.0 [facility] Comment on above: Performed By: #### L IPS #### [facility] [place] [address] [place] [address] MCH (RBC) [Entitic mass] 32.9 pg Normal 26-34 [facility] Comment on above: Performed By: #### L IPS #### [place] [address] [place] [address] MCHC (RBC) [Mass/Vol] 34.2 % Normal 31-37 [facility] Comment on above: Performed By: #### L IPS #### [place] [address] [place] [address] MCV (RBC) [Entitic vol] 96.2 fL Normal 80-100 [facility] Comment on above: Performed By: #### L IPS #### [place] [address] [place] [address] MEAN PLT VOL 8.8 CU Normal 7.0-12.6 [facility] Comment on above: Performed By: #### L IPS #### [place] [address] [place] [address] NRBC'S Normal 0 [facility] Comment on above: Result Comment: 0 Performed at [place] [address] [place] [address] Performed By: #### L IPS #### [place] [address] [place] [address] Platelets (Bld) [#/Vol] 218 10*3/uL Normal 150-450 [facility] Comment on above: Performed By: #### L IPS #### [place] [address] [place] [address] RBC (Bld) [#/Vol] 4.22 M/UL Normal 4.0-4.9 [facility] Comment on above: Performed By: #### L IPS #### [address] [address] RDW-SD 39.2 FL Normal 37.0-54.0 [facility] Comment on above: Performed By: #### L IPS #### [address] [address] WBC (Bld) [#/Vol] 5.4 10*3/uL Normal 4.5-11.0 [facility] Comment on above: Performed By: #### L IPS #### [address] [address] CMV AB IgGon 06-04-2019 CMV IgG Qual [facility] Comment on above: Result Comment: Posi tive Reference range: NEGATIVE Presence of detectable CMV IgG antibodies indicates either recent or past exposure to CMV. Performed By: #### L IPS #### [address] [address] Cytomegalovirus IgG [facility] Comment on above: Result Comment: 5.10 Unit: U/mL U/mL values are interpreted as follows: Negative: <0.60 Equivocal: >=0.60 to <0.70 Positive: >=0.70 The magnitude of the measured result above the cutoff is not indicative of the amount of antibody present. Performed at the [facility] unless otherwise noted. Performed By: #### L IPS #### [address] [address] CMV AB IgMon 06-04-2019 CMV IgM AB [facility] Comment on above: Result Comment: 10.7 Unit: AU/mL AU/mL values are interpreted as follows: Negative: <30.0 Equivocal: >=30.0 to <35.0 Positive: >=35.0 The magnitude of the measured result is not indicative of the amount of antibody present. Performed By: #### L IPS #### [address] [address] CMV IgM,Qual [facility] Comment on above: Result Comment: Nega tive Reference range: NEGATIVE Absence of detectable CMV IgM antibodies. If clinical exposure to hCMV is suspected despite a negative finding, a second sample should be collected and tested no less than one or two weeks later. Performed at the [facility] unless otherwise noted. Performed By: #### L IPS #### [facility] [address] [address] COMPREHENSIVE METABOLIC PANE Kavon 06-04-2019 ALT [Catalytic activity/Vol] High 5-40 [facility] Comment on above: Result Comment: 76 Performed at [address] [place] [address] Performed By: #### L IPS #### [facility] [address] [address] Albumin [Mass/Vol] 4.1 g/dL Normal 3.5-5.0 [facility] Comment on above: Performed By: #### L IPS #### [address] [address] Albumin/Globulin [Mass ratio] 1.6 {ratio} Normal 1.5-3.0 [facility] Comment on above: Performed By: #### L IPS #### [facility] [address] [address] ALP [Catalytic activity/Vol] 218 U/L High 35-125 [facility] Comment on above: Performed By: #### L IPS #### [facility] [address] [address] Anion gap [Moles/Vol] 14 mmol/L Normal 0-19 [facility] Comment on above: Performed By: #### L IPS #### [facility] [address] [address] AST [Catalytic activity/Vol] 15 U/L Normal 5-40 [facility] Comment on above: Performed By: #### L IPS #### [facility] [address] [address] Bilirubin [Mass/Vol] 0.3 mg/dL Normal 0.1-1.2 [facility] Comment on above: Performed By: #### L IPS #### [facility] [address] [address] Calcium [Mass/Vol] 9.1 mg/dL Normal 8.5-10.4 [facility] Comment on above: Performed By: #### L IPS #### [facility] [place] [address] [address] [facility] [address] Chloride [Moles/Vol] 106 mmol/L Normal 97-107 [facility] Comment on above: Performed By: #### L IPS #### [facility] [place] [address] [address] [facility] [address] CO2 [Moles/Vol] 20 mmol/L Low 24-31 [facility] Comment on above: Performed By: #### L IPS #### [facility] [place] [address] [address] [facility] [address] Creatinine [Mass/Vol] 0.7 mg/dL Normal 0.4-1.6 [facility] Comment on above: Performed By: #### L IPS #### [facility] [place] [address] [place] [address] Globulin (S) [Mass/Vol] 2.5 g/dL Normal 1.9-3.7 [facility] Comment on above: Performed By: #### L IPS #### [facility] [place] [address] [place] [address] Glucose [Mass/Vol] 99 mg/dL Normal 65-99 [facility] Comment on above: Result Comment: 99 Performed at [place] [address] [facility] [address] Performed By: #### L IPS #### [facility] [place] [address] [place] [address] Potassium [Moles/Vol] 3.5 mmol/L Normal 3.4-5.1 [facility] Comment on above: Performed By: #### L IPS #### [facility] [place] [address] [place] [address] Protein [Mass/Vol] 6.6 g/dL Normal 5.9-7.9 [facility] Comment on above: Performed By: #### L IPS #### [facility] [place] [address] [address] [facility] [address] Sodium [Moles/Vol] 139 mmol/L Normal 133-145 [facility] Comment on above: Performed By: #### L IPS #### [facility] [place] [address] [place] [address] Urea nitrogen [Mass/Vol] 6 mg/dL Low 8-25 [facility] Comment on above: Performed By: #### L IPS #### [facility] [place] [address] [place] [address] Urea nitrogen/Creatinine [Mass ratio] 8.6 RATIO Normal 8-21 [facility] Comment on above: Performed By: #### L IPS #### [facility] [place] [address] [place] [address] PROTHROMBIN TIMEon 9 INR Coag (PPP) [Relative time] High 0.86-1.16 [facility] Comment on above: Result Comment: 1.2 INR Theraputic Range: 2.0-3.5 Performed at [address] [place] [address] Performed By: #### L IPS #### [facility] [place] [address] [place] [address] PT Coag (PPP) [Time] HEPARIN [facility] Comment on above: Performed By: #### L IPS #### [place] [address] [place] [address] PT Coag (PPP) [Time] 12.3 s Normal 9.3-12.7 [facility] Comment on above: Performed By: #### L IPS #### [address] [address] TOXOPLASMA AB, IGGon 019 Toxo IgG Qual [facility] Comment on above: Result Comment: Posi tive Reference range: NEGATIVE Presence of detectable Toxoplasma gondii IgG antibodies. A positive result generally indicates either recent or past exposure to the pathogen. If IgG test scores positive in the presence of IgM antibodies, recent infection may be postulated. If IgG test scored positive in the absence of IgM antibodies, past infection may be postulated. Performed By: #### L IPS #### [address] [place] [address] TOXOPLASMA IgG AB [facility] Comment on above: Result Comment: 43.2 Unit: IU/mL IU/mL values are interpreted as follows: Negative <7.2 Equivocal >=7.2 and <8.8 Positive >=8.8 The magnitude of the measured result is not indicative of the amount of antibody present. The concentrations of anti-Toxoplasma gondii IgG in a given specimen determined with assays from different manufacturers can vary due to differences in assay methods and reagent specificity. Performed at the [facility] unless otherwise noted. Performed By: #### L IPS #### [address] [address] CBC WITHOUT DIFFon 9 Erythrocyte distribution width (RBC) [Ratio] 11.3 % Low 11.7-15.0 [facility] Comment on above: Performed By: #### C BRAKE ASSEMBLER #### [address] [address] Hematocrit (Bld) [Volume fraction] 39.1 % Normal 36-44 [facility] Comment on above: Performed By: #### C BRAKE ASSEMBLER #### [address] [address] Hemoglobin (Bld) [Mass/Vol] 13.2 g/dL Normal 12.0-15.0 [facility] Comment on above: Performed By: #### C BRAKE ASSEMBLER #### [address] [address] MCH (RBC) [Entitic mass] 33.4 pg Normal 26-34 [facility] Comment on above: Performed By: #### C BRAKE ASSEMBLER #### [address] [address] MCHC (RBC) [Mass/Vol] 33.8 % Normal 31-37 [facility] Comment on above: Performed By: #### C BRAKE ASSEMBLER #### [address] [address] MCV (RBC) [Entitic vol] 99.0 fL Normal 80-100 [facility] Comment on above: Performed By: #### C BRAKE ASSEMBLER #### [address] [address] MEAN PLT VOL 8.4 CU Normal 7.0-12.6 [facility] Comment on above: Performed By: #### C BRAKE ASSEMBLER #### [facility] [place] [address] [address] [facility] [address] NRBC'S Normal 0 [facility] Comment on above: Result Comment: 0 Performed at [place] [address] [place] [address] Performed By: #### C BRAKE ASSEMBLER #### [facility] [place] [address] [place] [address] Platelets (Bld) [#/Vol] 189 10*3/uL Normal 150-450 [facility] Comment on above: Performed By: #### C BRAKE ASSEMBLER #### [facility] [place] [address] [place] [address] RBC (Bld) [#/Vol] 3.95 M/UL Low 4.0-4.9 [facility] Comment on above: Performed By: #### C BRAKE ASSEMBLER #### [place] [address] [place] [address] RDW-SD 41.1 FL Normal 37.0-54.0 [facility] Comment on above: Performed By: #### C BRAKE ASSEMBLER #### [facility] [place] [address] [place] [address] WBC (Bld) [#/Vol] 4.4 10*3/uL Low 4.5-11.0 [facility] Comment on above: Performed By: #### C BRAKE ASSEMBLER #### [place] [address] [place] [address] COMPREHENSIVE METABOLIC PANE Kavon 06-02-2019 Creatinine [Mass/Vol] 0.7 mg/dL Normal 0.4-1.6 [facility] Comment on above: Performed By: #### L IPS #### [facility] [place] [address] [place] [address] Urea nitrogen [Mass/Vol] Low 8-25 [facility] Comment on above: Result Comment: 2 RESULT CHECKED Performed By: #### L IPS #### [facility] [place] [address] [place] [address] Urea nitrogen/Creatinine [Mass ratio] 2.9 RATIO Low 8-21 [facility] Comment on above: Performed By: #### L IPS #### [facility] [place] [address] [place] [address] Albumin [Mass/Vol] 4.0 g/dL Normal 3.5-5.0 [facility] Comment on above: Performed By: #### L IPS #### [facility] [place] [address] [place] [address] Albumin/Globulin [Mass ratio] 1.9 {ratio} Normal 1.5-3.0 [facility] Comment on above: Performed By: #### L IPS #### [facility] [place] [address] [place] [address] ALP [Catalytic activity/Vol] 240 U/L High 35-125 [facility] Comment on above: Performed By: #### L IPS #### [facility] [place] [address] [place] [address] ALT [Catalytic activity/Vol] High 5-40 [facility] Comment on above: Result Comment: 132 Performed at [place] [address] [place] [address] Performed By: #### L IPS #### [facility] [place] [address] [place] [address] Anion gap [Moles/Vol] 14 mmol/L Normal 0-19 [facility] Comment on above: Performed By: #### L IPS #### [facility] [place] [address] [place] [address] AST [Catalytic activity/Vol] 36 U/L Normal 5-40 [facility] Comment on above: Performed By: #### L IPS #### [facility] [facility] [place] [place] [address] Bilirubin [Mass/Vol] 0.3 mg/dL Normal 0.1-1.2 [facility] Comment on above: Performed By: #### L IPS #### [facility] [address] [place] [address] Calcium [Mass/Vol] 8.7 mg/dL Normal 8.5-10.4 [facility] Comment on above: Performed By: #### L IPS #### [facility] [address] [place] [address] Chloride [Moles/Vol] 111 mmol/L High 97-107 [facility] Comment on above: Performed By: #### L IPS #### [address] [place] [address] CO2 [Moles/Vol] 20 mmol/L Low 24-31 [facility] Comment on above: Performed By: #### L IPS #### [facility] [address] [place] [address] Globulin (S) [Mass/Vol] 2.1 g/dL Normal 1.9-3.7 [facility] Comment on above: Performed By: #### L IPS #### [address] [place] [address] Glucose [Mass/Vol] 108 mg/dL High 65-99 [facility] Comment on above: Performed By: #### L IPS #### [address] [place] [address] Potassium [Moles/Vol] 3.3 mmol/L Low 3.4-5.1 [facility] Comment on above: Performed By: #### L IPS #### [address] [place] [address] Protein [Mass/Vol] 6.1 g/dL Normal 5.9-7.9 [facility] Comment on above: Performed By: #### L IPS #### [address] [place] [address] Sodium [Moles/Vol] 145 mmol/L Normal 133-145 [facility] Comment on above: Performed By: #### L IPS #### [address] [place] [address] CBC WITHOUT DIFFon 9 Erythrocyte distribution width (RBC) [Ratio] 11.1 % Low 11.7-15.0 [facility] Comment on above: Performed By: #### C BRAKE ASSEMBLER #### [address] [place] [address] Hematocrit (Bld) [Volume fraction] 38.1 % Normal 36-44 [facility] Comment on above: Performed By: #### C BRAKE ASSEMBLER #### [address] [place] [address] Hemoglobin (Bld) [Mass/Vol] 12.7 g/dL Normal 12.0-15.0 [facility] Comment on above: Performed By: #### C BRAKE ASSEMBLER #### [facility] [address] [address] [place] [address] MCH (RBC) [Entitic mass] 33.3 pg Normal 26-34 [facility] Comment on above: Performed By: #### C BRAKE ASSEMBLER #### [facility] [address] [address] [place] [address] MCHC (RBC) [Mass/Vol] 33.3 % Normal 31-37 [facility] Comment on above: Performed By: #### C BRAKE ASSEMBLER #### [facility] [address] [address] [place] [address] MCV (RBC) [Entitic vol] 100.0 fL Normal 80-100 [facility] Comment on above: Performed By: #### C BRAKE ASSEMBLER #### [facility] [address] [address] MEAN PLT VOL 8.4 CU Normal 7.0-12.6 [facility] Comment on above: Performed By: #### C BRAKE ASSEMBLER #### [address] [address] [place] [address] NRBC'S Normal 0 [facility] Comment on above: Result Comment: 0 Performed at [address] [address] Performed By: #### C BRAKE ASSEMBLER #### [address] [address] Platelets (Bld) [#/Vol] 196 10*3/uL Normal 150-450 [facility] Comment on above: Performed By: #### C BRAKE ASSEMBLER #### [facility] [address] [address] RBC (Bld) [#/Vol] 3.81 M/UL Low 4.0-4.9 [facility] Comment on above: Performed By: #### C BRAKE ASSEMBLER #### [facility] [address] [address] [place] [address] RDW-SD 40.8 FL Normal 37.0-54.0 [facility] Comment on above: Performed By: #### C BRAKE ASSEMBLER #### [facility] [address] [place] [address] WBC (Bld) [#/Vol] 3.8 10*3/uL Low 4.5-11.0 [facility] Comment on above: Performed By: #### C BRAKE ASSEMBLER #### [facility] [address] [place] [address] COMPREHENSIVE METABOLIC PANE Kavon 06-01-2019 Albumin [Mass/Vol] 3.7 g/dL Normal 3.5-5.0 [facility] Comment on above: Performed By: #### C BRAKE ASSEMBLER #### [facility] [address] [facility] [address] Albumin/Globulin [Mass ratio] 1.8 {ratio} Normal 1.5-3.0 [facility] Comment on above: Performed By: #### C BRAKE ASSEMBLER #### [address] [address] [place] [address] ALP [Catalytic activity/Vol] 146 U/L High 35-125 [facility] Comment on above: Performed By: #### C BRAKE ASSEMBLER #### [address] [place] [address] ALT [Catalytic activity/Vol] High 5-40 [facility] Comment on above: Result Comment: 151 Performed at [place] [address] [facility] [place] [place] [address] Performed By: #### C BRAKE ASSEMBLER #### [address] [address] [place] [address] Anion gap [Moles/Vol] 11 mmol/L Normal 0-19 [facility] Comment on above: Performed By: #### C BRAKE ASSEMBLER #### [facility] [address] [place] [address] AST [Catalytic activity/Vol] 39 U/L Normal 5-40 [facility] Comment on above: Performed By: #### C BRAKE ASSEMBLER #### [facility] [address] [facility] [address] Bilirubin [Mass/Vol] 0.3 mg/dL Normal 0.1-1.2 [facility] Comment on above: Performed By: #### C BRAKE ASSEMBLER #### [facility] [address] [place] [address] Calcium [Mass/Vol] 8.6 mg/dL Normal 8.5-10.4 [facility] Comment on above: Performed By: #### C BRAKE ASSEMBLER #### [facility] [address] [place] [address] Chloride [Moles/Vol] 112 mmol/L High 97-107 [facility] Comment on above: Performed By: #### C BRAKE ASSEMBLER #### [facility] [address] [place] [address] CO2 [Moles/Vol] 20 mmol/L Low 24-31 [facility] Comment on above: Performed By: #### C BRAKE ASSEMBLER #### [facility] [address] [place] [address] Creatinine [Mass/Vol] 0.7 mg/dL Normal 0.4-1.6 [facility] Comment on above: Performed By: #### C BRAKE ASSEMBLER #### [facility] [address] [place] [address] Globulin (S) [Mass/Vol] 2.1 g/dL Normal 1.9-3.7 [facility] Comment on above: Performed By: #### C BRAKE ASSEMBLER #### [facility] [address] [place] [address] Glucose [Mass/Vol] 105 mg/dL High 65-99 [facility] Comment on above: Performed By: #### C BRAKE ASSEMBLER #### [facility] [address] [place] [address] Potassium [Moles/Vol] 3.5 mmol/L Normal 3.4-5.1 [facility] Comment on above: Performed By: #### C BRAKE ASSEMBLER #### [facility] [address] [place] [address] Protein [Mass/Vol] 5.8 g/dL Low 5.9-7.9 [facility] Comment on above: Performed By: #### C BRAKE ASSEMBLER #### [facility] [address] [place] [address] Sodium [Moles/Vol] 143 mmol/L Normal 133-145 [facility] Comment on above: Performed By: #### C BRAKE ASSEMBLER #### [facility] [address] [place] [address] Urea nitrogen [Mass/Vol] 3 mg/dL Low 8-25 [facility] Comment on above: Performed By: #### C BRAKE ASSEMBLER #### [facility] [address] [place] [address] Urea nitrogen/Creatinine [Mass ratio] 4.3 RATIO Low 8-21 [facility] Comment on above: Performed By: #### C BRAKE ASSEMBLER #### [facility] [address] [place] [address] GUIDED NEEDLE PLACEMENTon GUIDED NEEDLE PLACEMENT ADDEND *FINAL Date of Service: 06/01/2019 13:28 Adm #: [id number] Reading Dr:KAI SAINZ Signoff Dr: KAI SAINZ PROCEDURE: GUIDED NEEDLE PLACEMENT - [facility] 2519 REASON FOR EXAM: ELEVATED LFTS THIS REPORT CONTAINS AN ADDENDUM AT THE END OF THE ORIGINAL REPORT. PLEASE READ ALL THE WAY THROUGH THE ADDENDUM. ORIGINAL REPORT RESULT: ORIGINAL REPORT Clinical information: Abnormal LFTs. Conscious sedation: 45 minutes. Ultrasound-guided liver biopsy. Description: Informed consent obtained. Patient positioned supine and connected to physiologic monitoring. Conscious sedation provided with Versed and fentanyl. Skin prepped, draped and anesthetized. Under ultrasound guidance, 18-gauge biopsy instrument advanced to left lateral segment of liver and 2 core biopsies obtained. Post biopsy ultrasound showed no evidence of complication. Patient tolerated procedure well. Impression: Ultrasound-guided random liver biopsy. This report has been produced using speech recognition. END OF ORIGINAL ADDENDUM #1 Final pathology diagnosis: Mild hepatitis. This report has been produced using speech recognition. Original Interpreting Physician: KAI SAINZ MD Original Transcribed by/Date: [facility] Jun 01 2019 4:31P Original Electronically Signed by/Date: KAI SAINZ MD Jun 01 2019 4:31P Addendum Interpreting Physician: KAI SAINZ MD Addendum Transcribed by/Date: [facility] Jun 08 2019 8:21A Addendum Electronically Signed by/Date: KAI SAINZ MD Jun 08 2019 8:21A [facility] OVA AND PARASITE SCR,GIARDIA on 06-01-2019 OVA AND PARASITE SCR,GIARDIA Specimen source XXX: STOOL Performed at [place] [address] Service Cmnt XXX-Imp: NONE Performed at [place] [address] Microscopic observation: NEGATIVE FOR GIARDIA [place] [address] : FINAL 06/01/2019 [facility] Comment on above: Performed By: #### C BRAKE ASSEMBLER #### [place] [address] PROTHROMBIN TIMEon INR Coag (PPP) [Relative time] High 0.86-1.16 [facility] Comment on above: Result Comment: 1.3 INR Theraputic Range: 2.0-3.5 Performed at [place] [address] Performed By: #### C BRAKE ASSEMBLER #### [place] [address] PT Coag (PPP) [Time] 14.0 s High 9.3-12.7 [facility] Comment on above: Performed By: #### C BRAKE ASSEMBLER #### [place] [address] PT Coag (PPP) [Time] COUM+HEP [facility] Comment on above: Performed By: #### C BRAKE ASSEMBLER #### [facility] [place] [address] [facility] 06-01-2019 [place] [facility] Patient Name: DOROTHEA RUTLEDGE MR#: [id number] Specimen #[id number] Source: Ultrasound guided core needle biopsy left lobe liver Gross Description Received in formalin and designated, left lobe liver BX are 2 duron brown soft tissue cores both measuring 0.7 x 0.1 x 0.1 cm. The specimen is entirely submitted in one cassette. Microscopic Description Slides examined; description omitted. Procedures/Addenda Final Diagnosis LIVER, ULTRASOUND-GUIDED NEEDLE CORE BIOPSY: MILD HEPATITIS. SEE COMMENT. COMMENT: The liver tissue shows a normal lobular arrangement with the portal tracts showing minimal lymphocytic inflammation with occasional neutrophils (Margarita and Leon Grade 1). There is no evidence of bile duct inflammation, damage, or proliferation. There is minimal interface activity and mild lobular inflammation. The hepatocytes show some ballooning and focal pigment accumulation, without definitive cholestasis. There is minimal portal fibrosis (Stage 1), highlighted by trichrome and reticulin stains. There is no significant iron accumulation as demonstrated by an iron stain. Clinical correlation is recommended. Electronically Signed Out By THEODORE PAEZ D.O. Normal [facility] Comment on above: Performed By: #### L IPS #### [address] [address] COMPREHENSIVE METABOLIC PANE Kavon 05-31-2019 Albumin [Mass/Vol] 3.8 g/dL Normal 3.5-5.0 [facility] Comment on above: Performed By: #### C BRAKE ASSEMBLER #### [address] [address] Albumin/Globulin [Mass ratio] 1.9 {ratio} Normal 1.5-3.0 [facility] Comment on above: Performed By: #### C BRAKE ASSEMBLER #### [address] [address] ALP [Catalytic activity/Vol] 158 U/L High 35-125 [facility] Comment on above: Performed By: #### C BRAKE ASSEMBLER #### [address] [address] ALT [Catalytic activity/Vol] High 5-40 [facility] Comment on above: Result Comment: 180 Performed at [address] [address] Performed By: #### C BRAKE ASSEMBLER #### [address] [address] Anion gap [Moles/Vol] 13 mmol/L Normal 0-19 [facility] Comment on above: Performed By: #### C BRAKE ASSEMBLER #### [facility] [address] [address] AST [Catalytic activity/Vol] 42 U/L High 5-40 [facility] Comment on above: Performed By: #### C BRAKE ASSEMBLER #### [facility] [address] [place] [address] Bilirubin [Mass/Vol] 0.3 mg/dL Normal 0.1-1.2 [facility] Comment on above: Performed By: #### C BRAKE ASSEMBLER #### [facility] [address] [place] [address] Calcium [Mass/Vol] 8.7 mg/dL Normal 8.5-10.4 [facility] Comment on above: Performed By: #### C BRAKE ASSEMBLER #### [facility] [address] [place] [address] Chloride [Moles/Vol] 109 mmol/L High 97-107 [facility] Comment on above: Performed By: #### C BRAKE ASSEMBLER #### [facility] [address] [place] [address] CO2 [Moles/Vol] 22 mmol/L Low 24-31 [facility] Comment on above: Performed By: #### C BRAKE ASSEMBLER #### [facility] [address] [place] [address] Creatinine [Mass/Vol] 0.8 mg/dL Normal 0.4-1.6 [facility] Comment on above: Performed By: #### C BRAKE ASSEMBLER #### [facility] [address] [place] [address] Globulin (S) [Mass/Vol] 2.0 g/dL Normal 1.9-3.7 [facility] Comment on above: Performed By: #### C BRAKE ASSEMBLER #### [facility] [address] [place] [address] Glucose [Mass/Vol] 101 mg/dL High 65-99 [facility] Comment on above: Performed By: #### C BRAKE ASSEMBLER #### [facility] [address] [place] [address] Potassium [Moles/Vol] 3.6 mmol/L Normal 3.4-5.1 [facility] Comment on above: Performed By: #### C BRAKE ASSEMBLER #### [facility] [address] [place] [address] Protein [Mass/Vol] 5.8 g/dL Low 5.9-7.9 [facility] Comment on above: Performed By: #### C BRAKE ASSEMBLER #### [facility] [address] [address] Sodium [Moles/Vol] 143 mmol/L Normal 133-145 [facility] Comment on above: Performed By: #### C BRAKE ASSEMBLER #### [facility] [address] [address] Urea nitrogen [Mass/Vol] 4 mg/dL Low 8-25 [facility] Comment on above: Performed By: #### C BRAKE ASSEMBLER #### [facility] [address] [address] Urea nitrogen/Creatinine [Mass ratio] 5.0 RATIO Low 8-21 [facility] Comment on above: Performed By: #### C BRAKE ASSEMBLER #### [facility] [address] FECALon 05-[address] FECAL Specimen source XXX : STOOL Performed at [address] [address] Service Cmnt XXX-Imp: NONE Performed at [address] [place] [address] : NO WBC SEEN Performed at [address] [address] : FINAL 05/31/2019 [facility] Comment on above: Performed By: #### C BRAKE ASSEMBLER #### [facility] [address] [address] PROTHROMBIN TIMEon 9 INR Coag (PPP) [Relative time] High 0.86-1.16 [facility] Comment on above: Result Comment: 1.6 INR Theraputic Range: 2.0-3.5 Performed at [address] [address] Performed By: #### C BRAKE ASSEMBLER #### [facility] [address] [address] PT Coag (PPP) [Time] 17.0 s High 9.3-12.7 [facility] Comment on above: Performed By: #### C BRAKE ASSEMBLER #### [facility] [address] [address] PT Coag (PPP) [Time] COUM+HEP Normal [facility] Comment on above: Performed By: #### C BRAKE ASSEMBLER #### [facility] [address] [place] [address] ADD ON LAB REQUESTon 019 ADD ON REQUEST Normal [facility] Comment on above: Result Comment: ADDE D UNABLE TO ADD ON PTB Performed at [place] [address] [facility] [address] Performed By: #### C BCN #### [facility] [address] [place] [address] ADD ON TESTS NO BLUE TOP AVAILABLE Normal [facility] Comment on above: Performed By: #### C BCN #### [facility] [address] [address] [place] [address] CBC WITHOUT DIFFon 9 Erythrocyte distribution width (RBC) [Ratio] 11.4 % Low 11.7-15.0 [facility] Comment on above: Performed By: #### C BCN #### [address] [address] [place] [address] Hematocrit (Bld) [Volume fraction] 36.6 % Normal 36-44 [facility] Comment on above: Performed By: #### C BCN #### [address] [address] [place] [address] Hemoglobin (Bld) [Mass/Vol] 12.3 g/dL Normal 12.0-15.0 [facility] Comment on above: Performed By: #### C BCN #### [facility] [address] [place] [address] MCH (RBC) [Entitic mass] 33.9 pg Normal 26-34 [facility] Comment on above: Performed By: #### C BCN #### [facility] [address] [place] [address] [place] [address] MCHC (RBC) [Mass/Vol] 33.6 % Normal 31-37 [facility] Comment on above: Performed By: #### C BCN #### [facility] [address] [place] [address] [place] [address] MCV (RBC) [Entitic vol] 100.8 fL High 80-100 [facility] Comment on above: Performed By: #### C BCN #### [facility] [place] [address] [place] [address] MEAN PLT VOL 8.6 CU Normal 7.0-12.6 [facility] Comment on above: Performed By: #### C BCN #### [facility] [address] [place] [address] [place] [address] NRBC'S Normal 0 [facility] Comment on above: Result Comment: 0 [facility] [place] [address] [facility] [address] Performed By: #### C BCN #### [facility] [address] [place] [address] [place] [address] Platelets (Bld) [#/Vol] 196 10*3/uL Normal 150-450 [facility] Comment on above: Performed By: #### C BCN #### [facility] [address] [place] [address] [place] [address] RBC (Bld) [#/Vol] 3.63 M/UL Low 4.0-4.9 [facility] Comment on above: Performed By: #### C BCN #### [facility] [address] [place] [address] [place] [address] RDW-SD 42.0 FL Normal 37.0-54.0 [facility] Comment on above: Performed By: #### C BCN #### [facility] [address] [place] [address] [place] [address] WBC (Bld) [#/Vol] 3.1 10*3/uL Low 4.5-11.0 [facility] Comment on above: Performed By: #### C BCN #### [facility] [address] [place] [address] [place] [address] CDIF TOX. DETECTION,EIAon CDIF TOX. DETECTION,EIA Normal [facility] Comment on above: Result Comment: NEGA TIVE TEST: C. DIFFICILE TOXIN NEGATIVE BY EIA. NEGATIVE RESULT REQUIRES CLINICAL INTERPRETATION. RESULT MAY INDICATE COLONIZATION OR MAY REPRESENT A CLINICAL FALSE NEGATIVE IN THE PRESENCE OF TRUE INFECTION. IF NNECESSARY, CONSIDER GI AND/OR ID CONSULTATION. RESULTS CALLED TO MARTHA ECKERT 05/30/19 1330 Performed at [facility],[address] [address] [address] Performed By: #### C BCN #### [facility] [address] [place] [address] COMPREHENSIVE METABOLIC PANE Kavon 05-30-2019 Albumin [Mass/Vol] 3.8 g/dL Normal 3.5-5.0 [facility] Comment on above: Performed By: #### C BCN #### [facility] [address] [address] Albumin/Globulin [Mass ratio] 1.8 {ratio} Normal 1.5-3.0 [facility] Comment on above: Performed By: #### C BCN #### [facility] [address] [place] [address] ALP [Catalytic activity/Vol] 156 U/L High 35-125 [facility] Comment on above: Performed By: #### C BCN #### [facility] [address] [address] ALT [Catalytic activity/Vol] High 5-40 [facility] Comment on above: Result Comment: 210 Performed at [facility] [address] [place] [address] Performed By: #### C BCN #### [facility] [address] [address] Anion gap [Moles/Vol] 10 mmol/L Normal 0-19 [facility] Comment on above: Performed By: #### C BCN #### [facility] [address] [address] AST [Catalytic activity/Vol] 44 U/L High 5-40 [facility] Comment on above: Performed By: #### C BCN #### [facility] [address] [place] [address] Bilirubin [Mass/Vol] 0.3 mg/dL Normal 0.1-1.2 [facility] Comment on above: Performed By: #### C BCN #### [facility] [address] [facility] [address] Calcium [Mass/Vol] 8.4 mg/dL Low 8.5-10.4 [facility] Comment on above: Performed By: #### C BCN #### [facility] [address] [place] [address] Chloride [Moles/Vol] 111 mmol/L High 97-107 [facility] Comment on above: Performed By: #### C BCN #### [facility] [address] [place] [address] CO2 [Moles/Vol] 20 mmol/L Low 24-31 [facility] Comment on above: Performed By: #### C BCN #### [facility] [place] [address] [place] [address] Creatinine [Mass/Vol] 0.8 mg/dL Normal 0.4-1.6 [facility] Comment on above: Performed By: #### C BCN #### [place] [address] [place] [address] Globulin (S) [Mass/Vol] 2.1 g/dL Normal 1.9-3.7 [facility] Comment on above: Performed By: #### C BCN #### [place] [address] [place] [address] Glucose [Mass/Vol] 91 mg/dL Normal 65-99 [facility] Comment on above: Performed By: #### C BCN #### [place] [address] [place] [address] Potassium [Moles/Vol] 3.8 mmol/L Normal 3.4-5.1 [facility] Comment on above: Performed By: #### C BCN #### [place] [address] [place] [address] Protein [Mass/Vol] 5.9 g/dL Normal 5.9-7.9 [facility] Comment on above: Performed By: #### C BCN #### [facility] [place] [address] [place] [address] Sodium [Moles/Vol] 141 mmol/L Normal 133-145 [facility] Comment on above: Performed By: #### C BCN #### [facility] [address] [address] Urea nitrogen [Mass/Vol] 3 mg/dL Low 8-25 [facility] Comment on above: Performed By: #### C BCN #### [facility] [address] [address] Urea nitrogen/Creatinine [Mass ratio] 3.8 RATIO Low 8-21 [facility] Comment on above: Performed By: #### C BCN #### [facility] [address] [address] PROTHROMBIN TIMEon 9 INR Coag (PPP) [Relative time] High 0.86-1.16 [facility] Comment on above: Result Comment: 1.8 INR Theraputic Range: 2.0-3.5 Performed at [address] [address] Performed By: #### C BRAKE ASSEMBLER #### [address] [address] PT Coag (PPP) [Time] Normal [facility] Comment on above: Result Comment: PREV IOUSLY ON HEPARIN PREVIOUSLY ON COUMADIN Performed By: #### C BRAKE ASSEMBLER #### [address] [address] PT Coag (PPP) [Time] 18.1 s High 9.3-12.7 [facility] Comment on above: Performed By: #### C BRAKE ASSEMBLER #### [address] [address] CBC WITHOUT DIFFon 9 Erythrocyte distribution width (RBC) [Ratio] 11.4 % Low 11.7-15.0 [facility] Comment on above: Performed By: #### C BCN #### [facility] [address] [address] Hematocrit (Bld) [Volume fraction] 37.0 % Normal 36-44 [facility] Comment on above: Performed By: #### C BCN #### [facility] [address] [address] Hemoglobin (Bld) [Mass/Vol] 12.3 g/dL Normal 12.0-15.0 [facility] Comment on above: Performed By: #### C BCN #### [facility] [address] [address] [place] [address] MCH (RBC) [Entitic mass] 33.1 pg Normal 26-34 [facility] Comment on above: Performed By: #### C BCN #### [facility] [address] [address] [place] [address] MCHC (RBC) [Mass/Vol] 33.2 % Normal 31-37 [facility] Comment on above: Performed By: #### C BCN #### [facility] [address] [address] [place] [address] MCV (RBC) [Entitic vol] 99.5 fL Normal 80-100 [facility] Comment on above: Performed By: #### C BCN #### [facility] [address] [address] [place] [address] MEAN PLT VOL 8.7 CU Normal 7.0-12.6 [facility] Comment on above: Performed By: #### C BCN #### [facility] [address] [address] [place] [address] NRBC'S Normal 0 [facility] Comment on above: Result Comment: 0 Performed at [address] [address] [place] [facility] [place] [address] Performed By: #### C BCN #### [facility] [address] [address] [address] [facility] [place] [address] Platelets (Bld) [#/Vol] 220 10*3/uL Normal 150-450 [facility] Comment on above: Performed By: #### C BCN #### [facility] [address] [address] [address] [facility] [place] [address] RBC (Bld) [#/Vol] 3.72 M/UL Low 4.0-4.9 [facility] Comment on above: Performed By: #### C BCN #### [facility] [address] [address] [place] [address] RDW-SD 41.5 FL Normal 37.0-54.0 [facility] Comment on above: Performed By: #### C BCN #### [facility] [address] [address] [place] [address] WBC (Bld) [#/Vol] 3.8 10*3/uL Low 4.5-11.0 [facility] Comment on above: Performed By: #### C BCN #### [facility] [address] [address] [place] [address] COMPREHENSIVE METABOLIC PANE Kavon 05-29-2019 Albumin [Mass/Vol] 3.4 g/dL Low 3.5-5.0 [facility] Comment on above: Performed By: #### C BCN #### [facility] [address] [address] [place] [address] Albumin/Globulin [Mass ratio] 1.5 {ratio} Normal 1.5-3.0 [facility] Comment on above: Performed By: #### C BCN #### [facility] [address] [address] [place] [address] ALP [Catalytic activity/Vol] 158 U/L High 35-125 [facility] Comment on above: Performed By: #### C BCN #### [facility] [address] [address] [place] [address] ALT [Catalytic activity/Vol] High 5-40 [facility] Comment on above: Result Comment: 264 SAMPLE SLIGHTLY HEMOLYZED, RESULTS MAY BE AFFECTED Performed at [address] [address] [facility] [address] Performed By: #### C BCN #### [facility] [address] [address] [place] [address] Anion gap [Moles/Vol] 12 mmol/L Normal 0-19 [facility] Comment on above: Performed By: #### C BCN #### [facility] [address] [address] [place] [address] AST [Catalytic activity/Vol] High 5-40 [facility] Comment on above: Result Comment: 56 SAMPLE SLIGHTLY HEMOLYZED, RESULTS MAY BE AFFECTED Performed By: #### C BCN #### [facility] [address] [address] [place] [address] Bilirubin [Mass/Vol] 0.3 mg/dL Normal 0.1-1.2 [facility] Comment on above: Performed By: #### C BCN #### Main [facility] [address] [place] [address] Calcium [Mass/Vol] 8.4 mg/dL Low 8.5-10.4 [facility] Comment on above: Performed By: #### C BCN #### [facility] [address] [place] [address] Chloride [Moles/Vol] 112 mmol/L High 97-107 [facility] Comment on above: Performed By: #### C BCN #### [address] [address] [place] [address] CO2 [Moles/Vol] 18 mmol/L Low 24-31 [facility] Comment on above: Performed By: #### C BCN #### [address] [address] [place] [address] Creatinine [Mass/Vol] 0.7 mg/dL Normal 0.4-1.6 [facility] Comment on above: Performed By: #### C BCN #### [address] [address] [place] [address] Globulin (S) [Mass/Vol] 2.2 g/dL Normal 1.9-3.7 [facility] Comment on above: Performed By: #### C BCN #### [address] [address] [place] [address] Glucose [Mass/Vol] 97 mg/dL Normal 65-99 [facility] Comment on above: Performed By: #### C BCN #### [address] [address] [place] [address] Potassium [Moles/Vol] Normal 3.4-5.1 [facility] Comment on above: Result Comment: 4.1 SAMPLE SLIGHTLY HEMOLYZED, RESULTS MAY BE AFFECTED Performed By: #### C BCN #### [address] [address] [place] [address] Protein [Mass/Vol] 5.6 g/dL Low 5.9-7.9 [facility] Comment on above: Performed By: #### C BCN #### [address] [address] [place] [address] Sodium [Moles/Vol] 141 mmol/L Normal 133-145 [facility] Comment on above: Performed By: #### C BCN #### [facility] [address] [address] [place] [address] Urea nitrogen [Mass/Vol] 4 mg/dL Low 8-25 [facility] Comment on above: Performed By: #### C BCN #### [facility] [address] [address] [place] [address] Urea nitrogen/Creatinine [Mass ratio] 5.7 RATIO Low 8-21 [facility] Comment on above: Performed By: #### C BCN #### [facility] [address] [address] [place] [address] PROTHROMBIN TIMEon 9 INR Coag (PPP) [Relative time] High 0.86-1.16 [facility] Comment on above: Result Comment: 1.2 INR Theraputic Range: 2.0-3.5 Performed at [address] [address] [place] [address] Performed By: #### C BCN #### [facility] [address] [address] [place] [address] PT Coag (PPP) [Time] 13.0 s High 9.3-12.7 [facility] Comment on above: Performed By: #### C BCN #### [address] [address] [place] [address] PT Coag (PPP) [Time] COUM+HEP [facility] Comment on above: Performed By: #### C BCN #### [facility] [address] [address] [place] [address] ADD ON LAB REQUESTon 019 ADD ON REQUEST [facility] Comment on above: Result Comment: ADDN OK Performed at [address] [address] [facility] [address] Performed By: #### A DDON #### [facility] [address] [address] [place] [address] ADD ON TESTS PTB TO BE COLLECTED [facility] Comment on above: Performed By: #### A DDON #### [facility] [address] [address] [place] [address] AMYLASEon 05-28-2019 Amylase [Catalytic activity/Vol] Normal 28-100 [facility] Comment on above: Result Comment: 36 Performed at [address] [address] [facility] [address] Performed By: #### A GANGA #### [address] [address] [place] [address] CBC WITHOUT DIFFon 9 Erythrocyte distribution width (RBC) [Ratio] 11.5 % Low 11.7-15.0 [facility] Comment on above: Performed By: #### C BCN #### [address] [address] [place] [address] Hematocrit (Bld) [Volume fraction] 37.0 % Normal 36-44 [facility] Comment on above: Performed By: #### C BCN #### [address] [address] [place] [address] Hemoglobin (Bld) [Mass/Vol] 12.6 g/dL Normal 12.0-15.0 [facility] Comment on above: Performed By: #### C BCN #### [address] [address] [place] [address] MCH (RBC) [Entitic mass] 33.9 pg Normal 26-34 [facility] Comment on above: Performed By: #### C BCN #### [address] [address] [place] [address] MCHC (RBC) [Mass/Vol] 34.1 % Normal 31-37 [facility] Comment on above: Performed By: #### C BCN #### [facility] [address] [address] [place] [address] MCV (RBC) [Entitic vol] 99.5 fL Normal 80-100 [facility] Comment on above: Performed By: #### C BCN #### [address] [address] [place] [address] MEAN PLT VOL 8.7 CU Normal 7.0-12.6 [facility] Comment on above: Performed By: #### C BCN #### [address] [address] [place] [address] NRBC'S Normal 0 [facility] Comment on above: Result Comment: 0 Performed at [address] [address] [place] [address] Performed By: #### C BCN #### [address] [address] [place] [address] Platelets (Bld) [#/Vol] 198 10*3/uL Normal 150-450 [facility] Comment on above: Performed By: #### C BCN #### [address] [address] [place] [address] RBC (Bld) [#/Vol] 3.72 M/UL Low 4.0-4.9 [facility] Comment on above: Performed By: #### C BCN #### [address] [address] [place] [address] RDW-SD 42.0 FL Normal 37.0-54.0 [facility] Comment on above: Performed By: #### C BCN #### [address] [address] [place] [address] WBC (Bld) [#/Vol] 3.4 10*3/uL Low 4.5-11.0 [facility] Comment on above: Performed By: #### C BCN #### [address] [address] [place] [address] COMPREHENSIVE METABOLIC PANE Kavon 05-28-2019 Albumin [Mass/Vol] 3.7 g/dL Normal 3.5-5.0 [facility] Comment on above: Performed By: #### C BCN #### [address] [address] [place] [address] Albumin/Globulin [Mass ratio] 1.8 {ratio} Normal 1.5-3.0 [facility] Comment on above: Performed By: #### C BCN #### [address] [address] [place] [address] ALP [Catalytic activity/Vol] 178 U/L High 35-125 [facility] Comment on above: Performed By: #### C BCN #### [facility] [address] [address] [place] [address] ALT [Catalytic activity/Vol] High 5-40 [facility] Comment on above: Result Comment: 364 Performed at [address] [address] [place] [address] Performed By: #### C BCN #### [facility] [address] [address] [place] [address] Anion gap [Moles/Vol] 13 mmol/L Normal 0-19 [facility] Comment on above: Performed By: #### C BCN #### [facility] [address] [address] [place] [address] AST [Catalytic activity/Vol] 88 U/L High 5-40 [facility] Comment on above: Performed By: #### C BCN #### [facility] [address] [address] [place] [address] Bilirubin [Mass/Vol] 0.5 mg/dL Normal 0.1-1.2 [facility] Comment on above: Performed By: #### C BCN #### [facility] [address] [address] [place] [address] Calcium [Mass/Vol] 8.4 mg/dL Low 8.5-10.4 [facility] Comment on above: Performed By: #### C BCN #### [facility] [address] [address] [place] [address] Chloride [Moles/Vol] 108 mmol/L High 97-107 [facility] Comment on above: Performed By: #### C BCN #### [facility] [address] [address] [place] [address] CO2 [Moles/Vol] 18 mmol/L Low 24-31 [facility] Comment on above: Performed By: #### C BCN #### [facility] [address] [address] [place] [address] Creatinine [Mass/Vol] 0.7 mg/dL Normal 0.4-1.6 [facility] Comment on above: Performed By: #### C BCN #### [facility] [address] [address] [place] [address] Globulin (S) [Mass/Vol] 2.1 g/dL Normal 1.9-3.7 [facility] Comment on above: Performed By: #### C BCN #### [facility] [address] [place] [address] Glucose [Mass/Vol] 95 mg/dL Normal 65-99 [facility] Comment on above: Performed By: #### C BCN #### [facility] [address] [place] [address] Potassium [Moles/Vol] 3.8 mmol/L Normal 3.4-5.1 [facility] Comment on above: Performed By: #### C BCN #### [facility] [address] [address] [facility] [place] [address] Protein [Mass/Vol] 5.8 g/dL Low 5.9-7.9 [facility] Comment on above: Performed By: #### C BCN #### [facility] [address] [address] [address] [facility] [address] Sodium [Moles/Vol] 139 mmol/L Normal 133-145 [facility] Comment on above: Performed By: #### C BCN #### [facility] [address] [address] [facility] [address] Urea nitrogen [Mass/Vol] 4 mg/dL Low 8-25 [facility] Comment on above: Performed By: #### C BCN #### [facility] [address] [place] [address] Urea nitrogen/Creatinine [Mass ratio] 5.7 RATIO Low 8-21 [facility] Comment on above: Performed By: #### C BCN #### [facility] [address] [address] [facility] [place] [address] LIPASE PSon 05-28-2019 LIPASE PS Low 16-63 [facility] Comment on above: Result Comment: 15 Performed at [address] [address] [facility] [address] Performed By: #### C BCN #### [facility] [address] [address] [place] [address] PROTHROMBIN TIMEon 9 INR Coag (PPP) [Relative time] High 0.86-1.16 [facility] Comment on above: Result Comment: 1.2 INR Theraputic Range: 2.0-3.5 Performed at [address] [address] [facility] [address] Performed By: #### C BCN #### [address] [address] [place] [address] PT Coag (PPP) [Time] 12.5 s Normal 9.3-12.7 [facility] Comment on above: Performed By: #### C BCN #### [address] [place] [address] PT Coag (PPP) [Time] HISTORY OF COUMADIN Normal [facility] Comment on above: Performed By: #### C BCN #### [address] [address] [place] [address] CBC WITHOUT DIFFon 9 Erythrocyte distribution width (RBC) [Ratio] 11.4 % Low 11.7-15.0 [facility] Comment on above: Performed By: #### C BCN #### [address] [address] [place] [address] Hematocrit (Bld) [Volume fraction] 37.9 % Normal 36-44 [facility] Comment on above: Performed By: #### C BCN #### [address] [address] [place] [address] Hemoglobin (Bld) [Mass/Vol] 12.8 g/dL Normal 12.0-15.0 [facility] Comment on above: Performed By: #### C BCN #### [address] [address] [place] [address] MCH (RBC) [Entitic mass] 33.5 pg Normal 26-34 [facility] Comment on above: Performed By: #### C BCN #### [address] [address] [place] [address] MCHC (RBC) [Mass/Vol] 33.8 % Normal 31-37 [facility] Comment on above: Performed By: #### C BCN #### [address] [address] [place] [address] MCV (RBC) [Entitic vol] 99.2 fL Normal 80-100 [facility] Comment on above: Performed By: #### C BCN #### [address] [address] [place] [address] MEAN PLT VOL 8.7 CU Normal 7.0-12.6 [facility] Comment on above: Performed By: #### C BCN #### [facility] [address] [address] [place] [address] NRBC'S Normal 0 [facility] Comment on above: Result Comment: 0 Performed at [address] [address] [address] [facility] [address] Performed By: #### C BCN #### [address] [address] [place] [address] Platelets (Bld) [#/Vol] 175 10*3/uL Normal 150-450 [facility] Comment on above: Performed By: #### C BCN #### [address] [address] [place] [address] RBC (Bld) [#/Vol] 3.82 M/UL Low 4.0-4.9 [facility] Comment on above: Performed By: #### C BCN #### [address] [address] [place] [address] RDW-SD 41.3 FL Normal 37.0-54.0 [facility] Comment on above: Performed By: #### C BCN #### [address] [address] [place] [address] WBC (Bld) [#/Vol] 4.3 10*3/uL Low 4.5-11.0 [facility] Comment on above: Performed By: #### C BCN #### [facility] [address] [address] [place] [address] CBC with Diffon 05-27-2019 AB IMMATURE NEUT 0.01 K/UL Normal 0.0-0.1 [facility] Comment on above: Performed By: #### C BCD #### [facility] [address] [address] [place] [address] ABS BASO 0.04 K/UL Normal 0.00-0.22 [facility] Comment on above: Performed By: #### C BCD #### [facility] [address] [address] [place] [address] ABS EOS 0.12 K/UL Normal 0-0.45 [facility] Comment on above: Performed By: #### C BCD #### [facility] [address] [address] [place] [address] ABS NEUTROPHILS 1.61 K/UL Low 1.8-7.7 [facility] Comment on above: Performed By: #### C BCD #### [facility] [address] [address] [place] [address] ABS.NEUT.CALCULATED Normal [facility] Comment on above: Result Comment: 1.61 Performed at [address] [address] [facility] [address] Performed By: #### C BCD #### [address] [address] [place] [address] Basophils/100 WBC (Bld) 0.90 % Normal 0-1 [facility] Comment on above: Performed By: #### C BCD #### [address] [address] [place] [address] DIFF TYPE Normal [facility] Comment on above: Result Comment: AUTO DIFF SMEAR REVIEWED AND FOUND CONSISTENT WITH AUTOMATED DIFFERENTIAL Performed By: #### C BCD #### [address] [address] [place] [address] Eosinophils/100 WBC (Bld) 2.80 % Normal 0-3 [facility] Comment on above: Performed By: #### C BCD #### [address] [address] [place] [address] Erythrocyte distribution width (RBC) [Ratio] 11.6 % Low 11.7-15.0 [facility] Comment on above: Performed By: #### C BCD #### [facility] [address] [address] [place] [address] Hematocrit (Bld) [Volume fraction] 37.9 % Normal 36-44 [facility] Comment on above: Performed By: #### C BCD #### [address] [address] [place] [address] Hemoglobin (Bld) [Mass/Vol] 13.2 g/dL Normal 12.0-15.0 [facility] Comment on above: Performed By: #### C BCD #### [facility] [address] [address] [place] [address] Lymphocytes (Bld) [#/Vol] 2.08 10*3/uL Normal 1.2-3.2 [facility] Comment on above: Performed By: #### C BCD #### [facility] [address] [address] [place] [address] Lymphocytes/100 WBC (Bld) 49.30 % High 20-40 [facility] Comment on above: Performed By: #### C BCD #### [facility] [address] [address] [place] [address] MCH (RBC) [Entitic mass] 33.7 pg Normal 26-34 [facility] Comment on above: Performed By: #### C BCD #### [address] [address] [place] [address] MCHC (RBC) [Mass/Vol] 34.8 % Normal 31-37 [facility] Comment on above: Performed By: #### C BCD #### [facility] [address] [address] [place] [address] MCV (RBC) [Entitic vol] 96.7 fL Normal 80-100 [facility] Comment on above: Performed By: #### C BCD #### [address] [address] [place] [address] MEAN PLT VOL 8.5 CU Normal 7.0-12.6 [facility] Comment on above: Performed By: #### C BCD #### [facility] [address] [address] [place] [address] Monocytes (Bld) [#/Vol] 0.36 10*3/uL Normal 0-0.8 [facility] Comment on above: Performed By: #### C BCD #### [facility] [address] [address] [place] [address] Monocytes/100 WBC (Bld) 8.50 % High 0-8 [facility] Comment on above: Performed By: #### C BCD #### [facility] [address] [address] [place] [address] Neutrophils/100 WBC (Bld) 0.20 % Normal 0.0-1.0 [facility] Comment on above: Performed By: #### C BCD #### [facility] [address] [place] [address] Neutrophils/100 WBC (Bld) 38.30 % Low 50-70 [facility] Comment on above: Performed By: #### C BCD #### [facility] [address] [place] [address] NRBC'S 0 /100 WBC Normal 0 [facility] Comment on above: Performed By: #### C BCD #### [facility] [address] [address] [place] [address] Platelets (Bld) [#/Vol] 208 10*3/uL Normal 150-450 [facility] Comment on above: Performed By: #### C BCD #### [facility] [address] [address] [place] [address] RBC (Bld) [#/Vol] 3.92 M/UL Low 4.0-4.9 [facility] Comment on above: Performed By: #### C BCD #### [facility] [address] [address] [place] [address] RDW-SD 41.1 FL Normal 37.0-54.0 [facility] Comment on above: Performed By: #### C BCD #### [facility] [address] [address] [place] [address] WBC (Bld) [#/Vol] 4.2 10*3/uL Low 4.5-11.0 [facility] Comment on above: Performed By: #### C BCD #### [facility] [address] [address] [place] [address] COMPREHENSIVE METABOLIC PANE Kavon 05-27-2019 Albumin [Mass/Vol] 3.8 g/dL Normal 3.5-5.0 [facility] Comment on above: Performed By: #### C BRAKE ASSEMBLER #### [facility] [address] [address] [place] [address] Albumin/Globulin [Mass ratio] 1.7 {ratio} Normal 1.5-3.0 [facility] Comment on above: Performed By: #### C BRAKE ASSEMBLER #### [facility] [address] [place] [address] ALP [Catalytic activity/Vol] 193 U/L High 35-125 [facility] Comment on above: Performed By: #### C BRAKE ASSEMBLER #### Main Laboratory [facility] [address] [place] [address] ALT [Catalytic activity/Vol] High 5-40 [facility] Comment on above: Result Comment: 510 Performed at [facility] [address] [place] [address] Performed By: #### C BRAKE ASSEMBLER #### [facility] [address] [place] [address] Anion gap [Moles/Vol] 9 mmol/L Normal 0-19 [facility] Comment on above: Performed By: #### C BRAKE ASSEMBLER #### [facility] [address] [place] [address] AST [Catalytic activity/Vol] 207 U/L High 5-40 [facility] Comment on above: Performed By: #### C BRAKE ASSEMBLER #### Main Laboratory [facility] [address] [place] [address] Bilirubin [Mass/Vol] 0.5 mg/dL Normal 0.1-1.2 [facility] Comment on above: Performed By: #### C BRAKE ASSEMBLER #### Main Laboratory [facility] [address] [place] [address] Calcium [Mass/Vol] 8.9 mg/dL Normal 8.5-10.4 [facility] Comment on above: Performed By: #### C BRAKE ASSEMBLER #### Main Laboratory [facility] [address] [place] [address] Chloride [Moles/Vol] 109 mmol/L High 97-107 [facility] Comment on above: Performed By: #### C BRAKE ASSEMBLER #### Main Laboratory [facility] [address] [place] [address] CO2 [Moles/Vol] 24 mmol/L Normal 24-31 [facility] Comment on above: Performed By: #### C BRAKE ASSEMBLER #### Main Laboratory [facility] [address] [place] [address] Creatinine [Mass/Vol] 0.8 mg/dL Normal 0.4-1.6 [facility] Comment on above: Performed By: #### C BRAKE ASSEMBLER #### [facility] [address] [place] [address] Globulin (S) [Mass/Vol] 2.2 g/dL Normal 1.9-3.7 [facility] Comment on above: Performed By: #### C BRAKE ASSEMBLER #### [facility] [address] [place] [address] Glucose [Mass/Vol] 109 mg/dL High 65-99 [facility] Comment on above: Performed By: #### C BRAKE ASSEMBLER #### [place] [address] [place] [address] Potassium [Moles/Vol] 4.7 mmol/L Normal 3.4-5.1 [facility] Comment on above: Performed By: #### C BRAKE ASSEMBLER #### [place] [address] [place] [address] Protein [Mass/Vol] 6.0 g/dL Normal 5.9-7.9 [facility] Comment on above: Performed By: #### C BRAKE ASSEMBLER #### [place] [address] [place] [address] Sodium [Moles/Vol] 142 mmol/L Normal 133-145 [facility] Comment on above: Performed By: #### C BRAKE ASSEMBLER #### [place] [address] [place] [address] Urea nitrogen [Mass/Vol] 6 mg/dL Low 8-25 [facility] Comment on above: Performed By: #### C BRAKE ASSEMBLER #### [facility] [place] [address] [place] [address] Urea nitrogen/Creatinine [Mass ratio] 7.5 RATIO Low 8-21 [facility] Comment on above: Performed By: #### C BRAKE ASSEMBLER #### [facility] [place] [address] [place] [address] HEPATIC FUNCTION PANELon AST [Catalytic activity/Vol] 123 U/L High 5-40 [facility] Comment on above: Performed By: #### L IV #### Main Laboratory [place] [address] [place] [address] Albumin [Mass/Vol] 4.0 g/dL Normal 3.5-5.0 [facility] Comment on above: Performed By: #### L IV #### [facility] [address] [place] [address] Albumin/Globulin [Mass ratio] Normal 1.5-3.0 Count Includes [facility] Comment on above: Result Comment: 1.7 Performed at [place] [address] [place] [address] Performed By: #### L IV #### [facility] [place] [address] [place] [address] ALP [Catalytic activity/Vol] 190 U/L High 35-125 [facility] Comment on above: Performed By: #### L IV #### [facility] [place] [address] [place] [address] ALT [Catalytic activity/Vol] 447 U/L High 5-40 [facility] Comment on above: Performed By: #### L IV #### [facility] [place] [address] [place] [address] Bilirubin [Mass/Vol] 0.4 mg/dL Normal 0.1-1.2 [facility] Comment on above: Performed By: #### L IV #### [place] [address] [place] [address] BILIRUBIN INDIRECT 0.2 MG/DL Normal 0-0.8 [facility] Comment on above: Performed By: #### L IV #### [facility] [place] [address] [place] [address] Bilirubin.direct [Mass/Vol] Normal 0.0-0.2 Count Includes [facility] Comment on above: Result Comment: 0.2 LESS THAN Performed By: #### L IV #### [facility] [place] [address] [place] [address] Globulin (S) [Mass/Vol] 2.3 g/dL Normal 1.9-3.7 Count Includes [facility] Comment on above: Performed By: #### L IV #### [facility] [place] [address] [place] [address] Protein [Mass/Vol] 6.3 g/dL Normal 5.9-7.9 [facility] Comment on above: Performed By: #### L IV #### [address] [address] LIPASE PSon 05-27-2019 LIPASE PS Normal 16-63 [facility] Comment on above: Result Comment: 29 Performed at [address] [place] [address] Performed By: #### L IPS #### [address] [address] UA-REFLEX TO CULTUREon 05-27 BACT Negative [facility] Comment on above: Performed By: #### U ACUL #### [address] [address] MICROSCOPIC AUTOMATIC MICROSCOPI C URINES [facility] Comment on above: Performed By: #### U ACUL #### [address] [address] RBC (Bld) [#/Vol] NONE SEEN Normal 0-3 [facility] Comment on above: Performed By: #### U ACUL #### [facility] [address] [address] URINE HYALINE CAST NONE SEEN Normal [facility] Comment on above: Performed By: #### U ACUL #### [facility] [address] [address] URINE SQUAMOUS EPI NONE SEEN Normal [facility] Comment on above: Performed By: #### U ACUL #### [facility] [address] [address] WBC (Bld) [#/Vol] NONE SEEN Normal 0-3 [facility] Comment on above: Performed By: #### U ACUL #### [facility] [address] [address] Bacteria identified Cx Nom (U) [facility] Comment on above: Result Comment: CULT URE NOT INDICATED Performed at [address] [place] [address] Performed By: #### U ACUL #### [facility] [place] [address] [place] [address] BILI Negative Normal NEG [facility] Comment on above: Performed By: #### U ACUL #### [facility] [address] [place] [address] BLOOD Negative Normal NEG [facility] Comment on above: Performed By: #### U ACUL #### [facility] [address] [place] [address] Clarity (U) CLEAR [facility] Comment on above: Performed By: #### U ACUL #### [facility] [address] [place] [address] Color (U) COLORLESS [facility] Comment on above: Performed By: #### U ACUL #### [facility] [address] [place] [address] GLUC Negative Normal NEG [facility] Comment on above: Performed By: #### U ACUL #### [facility] [address] [place] [address] KET Negative Normal NEG [facility] Comment on above: Performed By: #### U ACUL #### [facility] [address] [place] [address] LEUK Negative Normal NEG [facility] Comment on above: Performed By: #### U ACUL #### [facility] [address] [place] [address] NIT Negative Normal NEG [facility] Comment on above: Performed By: #### U ACUL #### [facility] [address] [place] [address] pH (U) 6.0 [pH] Normal 4.6-8.0 [facility] Comment on above: Performed By: #### U ACUL #### [facility] [address] [place] [address] PROT Negative Normal NEG [facility] Comment on above: Performed By: #### U ACUL #### [facility] [address] [place] [address] SP GRAV,URINE 1.005 Normal 1.005-1.030 [facility] Comment on above: Performed By: #### U ACUL #### [facility] [place] [address] [address] URO NORMAL Normal 0-1.0 [facility] Comment on above: Performed By: #### U ACUL #### [facility] [address] [address] PROTHROMBIN TIMEon 9 INR Coag (PPP) [Relative time] High 0.86-1.16 [facility] Comment on above: Result Comment: 1.6 INR Theraputic Range: 2.0-3.5 Performed at [address] [address] Performed By: #### P TB #### [facility] [address] [address] PT Coag (PPP) [Time] 16.6 s High 9.3-12.7 [facility] Comment on above: Performed By: #### P TB #### [facility] [address] [address] PT Coag (PPP) [Time] COUMADIN Normal [facility] Comment on above: Performed By: #### P TB #### [facility] [address] [address] PROTHROMBIN TIMEon 8 INTERNATIONAL NORM RATIO 1.5 Low 2.0-3.5 [facility] Comment on above: Result Comment: INR THERAPEUTIC RANGE: GROUP A 2.0-3.0 INR GROUP B 2.5-3.5 INR GROUP A SUGGESTED INDICATIONS: PROPHYLAXIS AND TREATMENT OF VENOUS THROMBOSIS TREATMENT OF PULMONARY EMBOLISM ATRIAL FIBRILLATION GROUP B SUGGESTED INDICATIONS: MECHANICAL PROSTHETIC VALVES Performed By: #### C BCD, PT, BHCG, CMP, ETOH ####[facility] [address] [place] [address] Prothrombin time (PT) Coag time (PPP) 16.7 s High 9.0-12.4 [facility] Comment on above: Performed By: #### C BCD, PT, BHCG, CMP, ETOH ####[facility] [address] [place] [address] PROTHROMBIN TIMEon 8 INTERNATIONAL NORM RATIO 1.9 Low 2.0-3.5 [facility] Comment on above: Result Comment: INR THERAPEUTIC RANGE: GROUP A 2.0-3.0 INR GROUP B 2.5-3.5 INR GROUP A SUGGESTED INDICATIONS: PROPHYLAXIS AND TREATMENT OF VENOUS THROMBOSIS TREATMENT OF PULMONARY EMBOLISM ATRIAL FIBRILLATION GROUP B SUGGESTED INDICATIONS: MECHANICAL PROSTHETIC VALVES Performed By: #### P T ####[facility] [address] [place] [address] Prothrombin time (PT) Coag time (PPP) 20.7 s High 9.0-12.4 [facility] Comment on above: Performed By: #### P T ####[facility] [address] [place] [address] COMPREHENSIVE METABOLIC PANE Kavon 12-03-2017 Alanine aminotransferase (ALT) 53 U/L Normal 12-78 [facility] Comment on above: Performed By: #### C MP ####[facility] [address] [place] [address] Albumin 3.9 gm/dl Normal 3.1-4.5 [facility] Comment on above: Performed By: #### C MP ####[facility] [address] [place] [address] Alkaline phosphatase (ALP) 176 U/L High 45-117 [facility] Comment on above: Performed By: #### C MP ####[facility] [address] [place] [address] Bilirubin (total) 0.3 mg/dL Normal 0.2-1.0 [facility] Comment on above: Performed By: #### C MP ####[facility] [address] [place] [address] Calcium 8.5 mg/dL Normal 8.5-10.5 [facility] Comment on above: Performed By: #### C MP ####[facility] [address] [place] [address] Chloride 99 mmol/L Normal 98-107 [facility] Comment on above: Performed By: #### C MP ####[facility] [address] [place] [address] CO2 28 mmol/L Normal 21-32 [facility] Comment on above: Performed By: #### C MP ####[facility] [address] [place] [address] Creatinine 0.68 mg/dL Normal 0.55-1.02 [facility] Comment on above: Performed By: #### C MP ####[facility] [address] [place] [address] EST GLOM FILT > 60 Normal [facility] Comment on above: Result Comment: Resu lt Units: mL/min/1.73 m2Note: Persistent reduction for 3 months or more of an eGFRof <60 ml/min/1.73 m2 defines Chronic Kidney Disease (CKD).Patients with eGFR values greater than or equal to60 ml/min/1.73 m2 may also have CKD if evidence ofpersistent proteinuria is present. STAGES OF CKD eGFRStage 1 Kidney damage with normal kidney function >=90Stage 2 Kidney damage with mild loss of kidney function 89-60Stage 3a Mild to moderate loss of kidney function 59-44Stage 3b Moderate to severe loss of kidney function 43-30Stage 4 Severe loss of kidney function 29-15Stage 5 Kidney failure < 15. Performed By: #### C MP ####[facility] [address] [place] [address] ESTIMATED GLOM FILT RATE > 60 Normal [facility] Comment on above: Performed By: #### C MP ####[facility] [address] [place] [address] Glucose mass conc 109 mg/dL High 65-99 [facility] Comment on above: Performed By: #### C MP ####[facility] [address] [place] [address] Potassium molar conc 3.2 mmol/L Low 3.5-5.1 [facility] Comment on above: Performed By: #### C MP ####[facility] [address] [place] [address] Protein 6.9 g/dL Normal 6.4-8.2 [facility] Comment on above: Performed By: #### C MP ####[facility] [address] [place] [address] SGOT/AST 35 IU/L Normal 3-35 [facility] Comment on above: Performed By: #### C MP ####[facility] [address] [place] [address] Sodium 136 mmol/L Normal 136-145 [facility] Comment on above: Performed By: #### C MP ####[facility] [address] [place] [address] Urea nitrogen 14 mg/dL Normal 7-24 [facility] Comment on above: Performed By: #### C MP ####[facility] [address] [place] [address] PROTHROMBIN TIMEon 8 INTERNATIONAL NORM RATIO 1.7 Low 2.0-3.5 [facility] Comment on above: Result Comment: INR THERAPEUTIC RANGE: GROUP A 2.0-3.0 INR GROUP B 2.5-3.5 INR GROUP A SUGGESTED INDICATIONS: PROPHYLAXIS AND TREATMENT OF VENOUS THROMBOSIS TREATMENT OF PULMONARY EMBOLISM ATRIAL FIBRILLATION GROUP B SUGGESTED INDICATIONS: MECHANICAL PROSTHETIC VALVES Performed By: #### P T ####[facility] [address] [place] [address] Prothrombin time (PT) Coag time (PPP) 18.4 s High 9.0-12.4 [facility] Comment on above: Performed By: #### P T ####[facility] [address] [place] [address] BETA-HCG, QUANTon 12-02-2017 BETA-HCG, QUANT 4.0 mIU/mL High 1-3 [facility] Comment on above: Result Comment: INTE RPRETATION FOR : 0-3 mIU/ml=NEGATIVE 4-24 mIU/mL=BORDERLINE >25 mIU/mL=POSITIVE Performed By: #### C BCD, PT, BHCG, CMP, ETOH ####[facility] [address] [place] [address] CBC with DIFFERENTIALon 11-17 Basophils Auto #/vol (Bld) 0.1 10*3/uL Normal 0.0-0.1 [facility] Comment on above: Performed By: #### C BCD, PT, BHCG, CMP, ETOH ####[facility] [address] [place] [address] Basophils/100 WBC Auto (Bld) 0.8 % Normal 0.0-1.0 [facility] Comment on above: Performed By: #### C BCD, PT, BHCG, CMP, ETOH ####[facility] [address] [place] [address] Eosinophils 0.2 10*3/uL Normal 0.0-0.4 [facility] Comment on above: Performed By: #### C BCD, PT, BHCG, CMP, ETOH ####[facility] [address] [place] [address] Eosinophils/100 leukocytes 3.0 % Normal 1.0-4.0 [facility] Comment on above: Performed By: #### C BCD, PT, BHCG, CMP, ETOH ####[facility] [address] [place] [address] Erythrocytes (RBC) 4.21 10*6/uL Normal 4.10-5.10 [facility] Comment on above: Performed By: #### C BCD, PT, BHCG, CMP, ETOH ####[facility] [address] [place] [address] Hematocrit (HCT) 40.1 % Normal 37.0-47.0 [facility] Comment on above: Performed By: #### C BCD, PT, BHCG, CMP, ETOH ####[facility] [address] [place] [address] Hemoglobin mass conc (Bld) 32.5 pg High 27.0-31.0 [facility] Comment on above: Performed By: #### C BCD, PT, BHCG, CMP, ETOH ####[facility] [address] [place] [address] Hemoglobin mass conc (Bld) 13.7 g/dL Normal 12.0-16.0 [facility] Comment on above: Performed By: #### C BCD, PT, BHCG, CMP, ETOH ####[facility] [address] [place] [address] IG # 0.0 10*3/uL Normal 0.0-0.1 [facility] Comment on above: Performed By: #### C BCD, PT, BHCG, CMP, ETOH ####[facility] [address] [place] [address] IG % 0.2 % Normal 0.0-1.0 [facility] Comment on above: Performed By: #### C BCD, PT, BHCG, CMP, ETOH ####[facility] [address] [place] [address] Lymphocytes 1.4 10*3/uL Normal 1.3-4.4 [facility] Comment on above: Performed By: #### C BCD, PT, BHCG, CMP, ETOH ####[facility] [address] [place] [address] Lymphocytes/100 leukocytes 24.2 % Low 27.0-41.0 [facility] Comment on above: Performed By: #### C BCD, PT, BHCG, CMP, ETOH ####[facility] [address] [place] [address] MCH 34.2 g/dl Normal 33.0-37.0 [facility] Comment on above: Performed By: #### C BCD, PT, BHCG, CMP, ETOH ####[facility] [address] [place] [address] MCV 95.2 fL Normal 81.0-99.0 [facility] Comment on above: Performed By: #### C BCD, PT, BHCG, CMP, ETOH ####[facility] [address] [place] [address] Monocytes 0.3 10*3/uL Normal 0.1-1.0 [facility] Comment on above: Performed By: #### C BCD, PT, BHCG, CMP, ETOH ####[facility] [address] [place] [address] Monocytes/100 leukocytes 5.2 % Normal 3.0-9.0 [facility] Comment on above: Performed By: #### C BCD, PT, BHCG, CMP, ETOH ####[facility] [address] [place] [address] Neutrophils 4.0 10*3/uL Normal 2.3-7.9 [facility] Comment on above: Performed By: #### C BCD, PT, BHCG, CMP, ETOH ####[facility] [address] [place] [address] Neutrophils/100 WBC Auto (Bld) 66.6 % Normal 47.0-73.0 [facility] Comment on above: Performed By: #### C BCD, PT, BHCG, CMP, ETOH ####[facility] [address] [place] [address] NUCLEATED RED BLOOD CELL 0.0 % Normal 0.0-0.0 [facility] Comment on above: Performed By: #### C BCD, PT, BHCG, CMP, ETOH ####[facility] [address] [place] [address] NUCLEATED RED BLOOD CELL 0.0 10*3/uL Normal 0.0-0.0 [facility] Comment on above: Performed By: #### C BCD, PT, BHCG, CMP, ETOH ####[facility] [address] [place] [address] PLATELET COUNT AUTOMATED 339 10*3/uL Normal 130-400 [facility] Comment on above: Performed By: #### C BCD, PT, BHCG, CMP, ETOH ####[facility] [address] [place] [address] Platelet mean volume (PMV) 8.5 fL Low 9.6-12.3 [facility] Comment on above: Performed By: #### C BCD, PT, BHCG, CMP, ETOH ####[facility] [address] [place] [address] RED CELL DISTRI WIDTH 12.2 % Normal 0-14.5 [facility] Comment on above: Performed By: #### C BCD, PT, BHCG, CMP, ETOH ####[facility] [address] [place] [address] WBC (Leukocytes) 5.9 10*3/uL Normal 4.8-10.8 [facility] Comment on above: Performed By: #### C BCD, PT, BHCG, CMP, ETOH ####[facility] [address] [place] [address] COMPREHENSIVE METABOLIC PANE Kavon 12-02-2017 Alanine aminotransferase (ALT) 60 U/L Normal 12-78 [facility] Comment on above: Performed By: #### C BCD, PT, BHCG, CMP, ETOH ####[facility] [address] [place] [address] Albumin 3.9 gm/dl Normal 3.1-4.5 [facility] Comment on above: Performed By: #### C BCD, PT, BHCG, CMP, ETOH ####[facility] [address] [place] [address] Alkaline phosphatase (ALP) 192 U/L High 45-117 [facility] Comment on above: Performed By: #### C BCD, PT, BHCG, CMP, ETOH ####[facility] [address] [place] [address] Bilirubin (total) 0.4 mg/dL Normal 0.2-1.0 [facility] Comment on above: Performed By: #### C BCD, PT, BHCG, CMP, ETOH ####[facility] [address] [place] [address] Calcium 8.1 mg/dL Low 8.5-10.5 [facility] Comment on above: Performed By: #### C BCD, PT, BHCG, CMP, ETOH ####[facility] [address] [place] [address] Chloride 106 mmol/L Normal 98-107 [facility] Comment on above: Performed By: #### C BCD, PT, BHCG, CMP, ETOH ####[facility] [address] [place] [address] CO2 24 mmol/L Normal 21-32 [facility] Comment on above: Performed By: #### C BCD, PT, BHCG, CMP, ETOH ####[facility] [address] [place] [address] Creatinine 0.77 mg/dL Normal 0.55-1.02 [facility] Comment on above: Performed By: #### C BCD, PT, BHCG, CMP, ETOH ####[facility] [address] [place] [address] EST GLOM FILT > 60 Normal [facility] Comment on above: Result Comment: Resu lt Units: mL/min/1.73 m2Note: Persistent reduction for 3 months or more of an eGFRof <60 ml/min/1.73 m2 defines Chronic Kidney Disease (CKD).Patients with eGFR values greater than or equal to60 ml/min/1.73 m2 may also have CKD if evidence ofpersistent proteinuria is present. STAGES OF CKD eGFRStage 1 Kidney damage with normal kidney function >=90Stage 2 Kidney damage with mild loss of kidney function 89-60Stage 3a Mild to moderate loss of kidney function 59-44Stage 3b Moderate to severe loss of kidney function 43-30Stage 4 Severe loss of kidney function 29-15Stage 5 Kidney failure < 15. Performed By: #### C BCD, PT, BHCG, CMP, ETOH ####[facility] [address] [place] [address] ESTIMATED GLOM FILT RATE > 60 Normal [facility] Comment on above: Performed By: #### C BCD, PT, BHCG, CMP, ETOH ####[facility] [address] [place] [address] Glucose mass conc 110 mg/dL High 65-99 [facility] Comment on above: Performed By: #### C BCD, PT, BHCG, CMP, ETOH ####[facility] [address] [place] [address] Potassium molar conc 3.1 mmol/L Low 3.5-5.1 [facility] Comment on above: Performed By: #### C BCD, PT, BHCG, CMP, ETOH ####[facility] [address] [place] [address] Protein 7.4 g/dL Normal 6.4-8.2 [facility] Comment on above: Performed By: #### C BCD, PT, BHCG, CMP, ETOH ####[facility] [address] [place] [address] SGOT/AST 21 IU/L Normal 3-35 [facility] Comment on above: Performed By: #### C BCD, PT, BHCG, CMP, ETOH ####[facility] Rffvn[address]rq[address] [place] [address] Sodium 140 mmol/L Normal 136-145 [facility] Comment on above: Performed By: #### C BCD, PT, BHCG, CMP, ETOH ####[facility] Ltrnhgwmgp[address] [place] [address] Urea nitrogen 12 mg/dL Normal 7-24 [facility] Comment on above: Performed By: #### C BCD, PT, BHCG, CMP, ETOH ####[facility] Iyxqgkiwwl352 [place] [address] ETHYL ALCOHOLon 12-02-2017 ETHYL ALCOHOL < 3.0 Normal <3 [facility] Comment on above: Performed By: #### C BCD, PT, BHCG, CMP, ETOH ####[facility] Zhznhybzmw403 [place] [address] PROTHROMBIN TIMEon 8 INTERNATIONAL NORM RATIO 1.8 Low 2.0-3.5 [facility] Comment on above: Result Comment: INR THERAPEUTIC RANGE: GROUP A 2.0-3.0 INR GROUP B 2.5-3.5 INR GROUP A SUGGESTED INDICATIONS: PROPHYLAXIS AND TREATMENT OF VENOUS THROMBOSIS TREATMENT OF PULMONARY EMBOLISM ATRIAL FIBRILLATION GROUP B SUGGESTED INDICATIONS: MECHANICAL PROSTHETIC VALVES Performed By: #### C BCD, PT, BHCG, CMP, ETOH ####[facility] Vtoeeddcqm[address] [place] [address] Prothrombin time (PT) Coag time (PPP) 19.9 s High 9.0-12.4 [facility] Comment on above: Performed By: #### C BCD, PT, BHCG, CMP, ETOH ####[facility] [address]jvb[address] [place] [address] URINALYSIS REFLEX TO CULTURE on 12-02-2017 Bilirubin (total) Negative Normal NEGATIVE [facility] Comment on above: Performed By: #### U ARFXUC ####[facility] Dmwnagepbo[address] [place] [address] BLOOD TRACE-INTACT Abnormal NEGATIVE [facility] Comment on above: Performed By: #### U ARFXUC ####[facility] Qmdbdnkmqx544 [place] [address] Erythrocytes (RBC) 5-10 Normal 0-2 [facility] Comment on above: Performed By: #### U ARFXUC ####[facility] Pscmtmpdjh427 [place] [address] Glucose mass conc Negative Normal NEGATIVE [facility] Comment on above: Performed By: #### U ARFXUC ####[facility] Sjuskupqmq020 [place] [address] HYALINE CAST 21-30 Normal [facility] Comment on above: Performed By: #### U ARFXUC ####[facility] Coixlckhmc[address] [place] [address] KETONE Negative Normal NEGATIVE [facility] Comment on above: Performed By: #### U ARFXUC ####[facility] [address] [place] [address] LEUKO ESTERASE Negative Normal NEGATIVE [facility] Comment on above: Performed By: #### U ARFXUC ####[facility] [address] [place] [address] MUCOUS 1+ Normal [facility] Comment on above: Performed By: #### U ARFXUC ####[facility] [address] [place] [address] pH of blood 5.5 [pH] Normal 5.0-9.0 [facility] Comment on above: Performed By: #### U ARFXUC ####[facility] [address] [place] [address] Protein Negative Normal NEGATIVE [facility] Comment on above: Performed By: #### U ARFXUC ####[facility] [address] [place] [address] URINE REFLEX COMMENT NO Normal NO [facility] Comment on above: Performed By: #### U ARFXUC ####[facility] Gbnzyrixho[address] [place] [address] Urine, bacteria in sediment 1+ Abnormal [facility] Comment on above: Performed By: #### U ARFXUC ####[facility] [address] [place] [address] Urine, clarity CLEAR Normal CLEAR [facility] Comment on above: Performed By: #### U ARFXUC ####[facility] [address]xihau[address] [place] [address] Urine, color YELLOW Normal YELLOW [facility] Comment on above: Performed By: #### U ARFXUC ####[facility] Axtbsgolib[address] [place] [address] Urine, epithelial cells in sediment 5-10 Normal [facility] Comment on above: Performed By: #### U ARFXUC ####[facility] [address] [place] [address] Urine, nitrite presence Negative Normal NEGATIVE [facility] Comment on above: Performed By: #### U ARFXUC ####[facility] [address] [place] [address] Urine, specific gravity 1.020 Normal 1.005-1.030 [facility] Comment on above: Performed By: #### U ARFXUC ####[facility] [address] [place] [address] Urine, urobilinogen 0.2 E.U./dl Normal 0.2-1.0 [facility] Comment on above: Performed By: #### U ARFXUC ####[facility] [address] [place] [address] WBC (Leukocytes) 2-4 Normal 0-5 [facility] Comment on above: Performed By: #### U ARFXUC ####[facility] [address] [place] [address] URINE DRUG SCREENon 12-03-19 18 URINE AMPHETAMINES < 1000 Normal 1000ng/ml [facility] Comment on above: Performed By: #### U DRG ####[facility] [address] [place] [address] URINE BARBITURATES > 200 Abnormal 200ng/ml [facility] Comment on above: Performed By: #### U DRG ####[facility] [address] [place] [address] URINE BENZODIAZEPINES > 200 Abnormal 200ng/ml [facility] Comment on above: Performed By: #### U DRG ####[facility] [address]drdacin[address] [place] [address] URINE CANNABINOIDS (THC) < 50 Normal 50ng/ml [facility] Comment on above: Performed By: #### U DRG ####[facility] Kx[address]qrtybw[address] [place] [address] URINE COCAINE < 300 Normal 300ng/ml [facility] Comment on above: Performed By: #### U DRG ####[facility] [address] [place] [address] URINE METHADONE < 300 Normal 300ng/ml [facility] Comment on above: Performed By: #### U DRG ####[facility] [address]ws[address] [place] [address] URINE OPIATES < 300 Normal 300ng/ml [facility] Comment on above: Performed By: #### U DRG ####[facility] [address] [place] [address] Urine, pH [pH] Normal 25ng/ml [facility] Comment on above: Result Comment: pH o f the urine has been checked and is within acceptable range 5-8 The Drugs of Abuse are screening results only. Confirmation and Quantitation by GC/MS can be performed byrequest at an additional charge. ANYTHING EQUAL TO OR GREATER THAN THE REFERENCE INDICATESABUSE. ( > = POSITIVE < = NEGATIVE ) Performed By: #### U DRG ####[facility] [address] [place] [address] CT Chest w/ + w/o Contraston 11-15-2017 CT Chest w/ + w/o Contrast Patient Name: DOROTHEA RUTLEDGE [facility]: [id number] CT Exam Date/Time 11/15/2017 05:22:[address] Chest w/ + w/o Contrast Ordering Physician MD BRAND RAYMUNDO Accession Number [id number] CPT4 Codes 52929 (), Q9967 () Reason For Exam TRAUMA TO TRUNK/THORAX Report Clinical indication: Trauma. Broken collarbone. Comparison: None Contrast: 75 mL Isovue-370 intravenously Radiation dose: DLP 971 mGycm Imaging was performed from thoracic apex through posterior sulci with axial, coronal and sagittal images reconstructed. The clavicles are not completely included in the exam field and the clinically referenced fracture is not visible. No mediastinal hematoma or free air is noted. The aorta shows no aneurysmal dilatation and there is no evidence of dissection. The heart is normal in size. There is no pericardial fluid. Mild hypoventilatory changes are noted in the dependent portions of the lungs. No pleural effusion or pneumothorax is present. Utilized portions of the liver and spleen appear normal with no laceration, hematoma or mass. Adrenal glands appear normal. Scapula are incompletely included in the pzxhb-cb-tggu, but the visualized portions show no fractures. No rib fractures are identified. Deformity of the sternum and manubrium is noted which appears chronic and is unchanged compared to a chest radiograph of 09/01/2016. There are no vertebral compression deformities identified. IMPRESSION: No acute posttraumatic abnormality is noted in the chest, with clavicles incompletely included in the wwpzl-az-klop Report Dictated on Workstation: [id number] Final Dictating Physician: MD AREVALO DIANE Signed Date and Time: 11/15/2017 6:26 am Signed by: MD AREVALO DIANE Transcribed Date and Time: 11/15/2017 6:28 Normal [facility] CT Head or Brain w/o Contras ton 11-15-2017 CT Head or Brain w/o Contrast Patient Name: DOROTHEA RUTLEDGE CT Exam Date/Time 11/15/2017 05:35:[address] Head or Brain w/o Contrast Ordering Physician MD BRAND RAYMUNDO Accession Number [id number] CPT4 Codes 67104 () Reason For Exam elevated INR >10, slurred speach Report Clinical indication: Slurred speech. Elevated INR. Comparison: 09/26/2012 Radiation dose: DLP 1281 mGycm Imaging between skull base and vertex was performed without intravenous contrast. No intracranial hemorrhage, edema, mass or mass effect is identified. Focal encephalomalacia in the right anterior superior parietal lobe is unchanged. No extra axial hemorrhagic collections are identified. Visualized paranasal sinuses and mastoid air cells are clear. IMPRESSION: No acute intracranial abnormality is identified specifically with no acute infarction identified. Unchanged area of encephalomalacia right parietal lobe Report Dictated on Workstation: [id number] Final Dictating Physician: MD AREVALO DIANE Signed Date and Time: 11/15/2017 6:21 am Signed by: MD AREVALO DIANE Transcribed Date and Time: 11/15/2017 6:22 Normal [facility] CT Abdomen/Pelvis w/ Contras ton 10-28-2017 CT Abdomen/Pelvis w/ Contrast Patient Name: DOROTHEA RUTLEDGE CT Exam Date/Time 10/28/2017 00:39:[address] Abdomen/Pelvis w/ IV Contrast (IV Onl Ordering Physician DO CRISTINA MICHAEL J. Accession Number [id number] CPT4 Codes 66868 (CT Abdomen/Pelvis w/ IV Contrast (IV Onl), Q9967 () Reason For Exam ABDOMINAL PAIN Report CT ABDOMEN AND PELVIS WITH CONTRAST CLINICAL INDICATION: Abdominal/epigastric pain. History of colitis. TECHNIQUE: 3mm axial images with IV contrast. Oral contrast was not administered. COMPARISON: 12/04/2016. FINDINGS: The lung bases are clear. Cholecystectomy clips. No biliary dilatation. The liver, spleen, pancreas, bilateral adrenal glands and kidneys are normal without hydronephrosis. There is a distorted probable [place] IVC filter with strut extending beyond the lumen of the intra and infra renal IVC, unchanged from prior exam. Prominent left gonadal vein ends in left groin collateral veins. No retroperitoneal hematoma is evident. There are a few small retroperitoneal lymph nodes. Aorta and bilateral iliac arteries are normal caliber without atherosclerosis. No free air or fluid is identified. Appendix is surgically absent. Small bowel loops are not distended. There is fecal residual residue identified throughout colon, compatible with constipation. IMPRESSION: 1. No acute abdominal or pelvic process. 2. Distorted bird's nest IVC filter. Struts appear to extend beyond the IVC lumen wall, unchanged from the prior exam. No retroperitoneal hematoma. 3. Colon is distended with residual fecal residue suggesting constipation. Report Dictated on Workstation: [id number] Final Dictating Physician: MANISH MUELLER DO, I Signed Date and Time: 10/28/2017 1:31 am Signed by: MANISH MUELLER DO, I Transcribed Date and Time: 10/28/2017 1:32 [facility] CULTURE URINEon 10-28-2017 CULTURE URINE Specimen Source Comment:Urine, clean catch [facility] Patient name: DOROTHEA RUTLEDGE MJacqueR.N.: [id number] : 1975 Age: 41 Sex: F Ord. Physician: Location: [place] [address] Copy to: [facility]. Date: 10/28/17 MICROBIOLOGYORDER#: [id number] COLLECTED: 10/28/17 00:09SOURCE: Urine RECEIVED: 10/28/17 00:15 FRANCISCO C O M M E N T S Bhaskar tijerina Source Comment:Urine, clean catchCULTURE URINE FINAL 10/28/17 22:Normal urogenital keron present. [facility] Comment on above: Performed By: #### C /UR ####[place] [address] US Abdomen Completeon 2017 US Abdomen Complete Patient Name: DOROTHEA RUTLEDGE Ultrasound Exam Date/Time 10/27/2017 23:10:00 EST Exam US Abdomen Complete Ordering Physician DO CRISTINA MICHAEL J. Accession Number [id number] CPT4 Codes 09808 () Reason For Exam RUQ and epigastric pain, Recent sphincterotomy for choledocholithiasis Report Examination: Abdominal Ultrasound Indication: RUQ and epigastric pain, Recent sphincterotomy for choledocholithiasis Findings: Multiple static vaca scale and color Doppler sonographic images of the abdomen are submitted for interpretation. There is a coarsened echotexture of the liver. No discrete intrahepatic mass is demonstrated. The patient is status post cholecystectomy. There is no intrahepatic biliary ductal dilatation. The common duct measures 4 mm. Negative sonographic Barrett's sign was documented by the naval special warfare medic. The pancreas is not well visualized secondary to bowel gas., however the pancreas is not visualized in it's entirety. The right kidney measures 9.5 x 6.7 x 4.6 cm and demonstrates a grossly normal sonographic appearance. The left kidney measures 10.3 x 4.6 x 4 cm and demonstrates a grossly normal sonographic appearance. The spleen measures 10.4 x 3.4 x 10 cm. The aorta is not well visualized on this study secondary to bowel gas. Impression: Cholecystectomy changes. The common duct is not abnormally dilated. Mildly coarsened echotexture of the liver. Report Dictated on Final Dictating Physician: DUNG STRICKLAND Signed Date and Time: 10/27/2017 11:24 pm Signed by: DUNG STRICKLAND Transcribed Date and Time: 10/27/2017 11:25 Normal [facility] BMPon 10-27-2017 Anion gap 12 mmol/L Normal 5-16 [facility] Comment on above: Order Comment: Campu s: M Performed By: #### L 500.48789, L500.82821, L500.66422, L500.40885 ####[facility] [id number] [place], [place] [address]Hv# [phone] BUN/Creatinine Ratio 19 mg/mg Normal 15-24 [facility] Comment on above: Order Comment: Campu s: M Performed By: #### L 500.72476, L500.89245, L500.74403, L500.24827 ####[facility] [id number] [place], [place] [address]Eo# [phone] Calcium 8.5 mg/dL Normal 8.5-10.1 [facility] Comment on above: Order Comment: Campu s: M Performed By: #### L 500.97912, L500.19498, L500.59657, L500.89575 ####[facility] [id number] [place], [place] [address]Lv# [phone] Chloride 110 mmol/L High 98-107 [facility] Comment on above: Order Comment: Campu s: M Performed By: #### L 500.98950, L500.36543, L500.11459, L500.78236 ####[facility] WEPZZZQGLT[address] [place], [place] [address]Ra# [phone] CO2 20 mmol/L Low 21-32 [facility] Comment on above: Order Comment: Campu s: M Performed By: #### L 500.74378, L500.15481, L500.40934, L500.11394 ####[facility] [address] [place] [address]En# [phone] Creatinine 0.674 mg/dL Normal 0.510-0.950 [facility] Comment on above: Order Comment: Campu s: M Result Comment: Evelyn ents receiving either N-Acetylcysteine (NAC) orMetamizole prior to venipuncture, may have falsely depressedresults. Performed By: #### L 500.81039, L500.97021, L500.82382, L500.12618 ####[facility] GIBEDQ[address]VY[address] [place], [place] [address]Xw# [phone] Glucose mass conc 120 mg/dL High 70-100 [facility] Comment on above: Order Comment: Campu s: M Result Comment: 70-1 00- Normal Fasting; 100-125 Impaired Fasting; greaterthan 126 on more than one result- Diabetes. ADA guidelines.Results may be falsely elevated after the administration ofSulfapyridine.Results may be falsely depressed after the administration ofSulfasalazine. Performed By: #### L 500.72145, L500.79416, L500.08476, L500.94815 ####[facility] [id number] [place] [address]Eo# [phone] Potassium molar conc 4.2 mmol/L Normal 3.5-5.1 [facility] Comment on above: Order Comment: Campu s: M Result Comment: Mode rate Hemolysis, Result may be falsely increased. Performed By: #### L 500.81201, L500.15977, L500.13165, L500.23761 ####[place] [address]Ph# [phone] Sodium 142 mmol/L Normal 136-145 [facility] Comment on above: Order Comment: Campu s: M Performed By: #### L 500.83436, L500.68616, L500.90292, L500.33327 ####[address] [address]Md# [phone] Urea nitrogen 13 mg/dL Normal 7-26 [facility] Comment on above: Order Comment: Campu s: M Performed By: #### L 500.97754, L500.94088, L500.60402, L500.42430 ####[place] [address]Ph# [phone] CBC W/DIFFon 10-27-2017 BASO ABS 0.10 K/CU MM Normal 0-0.2 [facility] Comment on above: Order Comment: Campu s: M Performed By: #### L 200.24142 ####[facility] [id number] [place], [place] [address]Ph# [phone] Basophils/100 WBC Auto (Bld) 0.8 % Normal 0-2 [facility] Comment on above: Order Comment: Campu s: M Performed By: #### L 200.23996 ####[address] [address]Yc# [phone] EOS ABS 0.30 K/CU MM Normal 0-0.5 [facility] Comment on above: Order Comment: Campu s: M Performed By: #### L 200.91855 ####[facility] [id number] [place], [place] [address]Cx# [phone] Eosinophils/100 leukocytes 5.2 % High 0-5 [facility] Comment on above: Order Comment: Campu s: M Performed By: #### L 200.85483 ####[facility] [id number] [place], [place] [address]Xw# [phone] Erythrocyte distribution width Auto Ratio (RBC) 12.8 % Normal 11-14.5 [facility] Comment on above: Order Comment: Campu s: M Performed By: #### L 200.96210 ####[address] [address]Xy# [phone] Erythrocytes (RBC) 0.0 % Normal Less than 1 [facility] Comment on above: Order Comment: Campu s: M Performed By: #### L 200.59137 ####[facility] [id number] [place] [address]Hq# [phone] Erythrocytes (RBC) 3.84 M/CU MM Low 3.90-5.30 [facility] Comment on above: Order Comment: Campu s: M Performed By: #### L 200.94526 ####[facility] [id number] [place], [place] [address]Pa# [phone] Hematocrit (HCT) 37.5 % Normal 35.0-47.0 [facility] Comment on above: Order Comment: Campu s: M Performed By: #### L 200.30571 ####[facility] [id number] [place], [place] [address]Zf# [phone] Hemoglobin mass conc (Bld) 12.6 g/dL Normal 11.5-15.5 [facility] Comment on above: Order Comment: Campu s: M Performed By: #### L 200.89047 ####[facility] [id number] [place], [place] [address]Aa# [phone] IMMATR GRAN ABS 0.00 K/CU MM Normal Less than 2 [facility] Comment on above: Order Comment: Campu s: M Performed By: #### L 200.78340 ####[facility] [id number] [place], [place] [address]Ph# [phone] IMMATURE GRAN % 0.3 % Normal Less than 2 [facility] Comment on above: Order Comment: Campu s: M Performed By: #### L 200.22204 ####[facility] [id number] [place], [place] [address]Ph# [phone] Lymphocytes 2.10 K/CU MM Normal 0.9-4.4 [facility] Comment on above: Order Comment: Campu s: M Performed By: #### L 200.25357 ####[place] [address]Ph# [phone] Lymphocytes/100 leukocytes 31.6 % Normal 20-40 [facility] Comment on above: Order Comment: Campu s: M Performed By: #### L 200.27190 ####[facility] [id number] [place], [place] [address]Ph# [phone] MCHC mass conc (RBC) 33.6 g/dL Normal 32.0-36.0 [facility] Comment on above: Order Comment: Campu s: M Performed By: #### L 200.39504 ####[facility] [id number] [place], [place] [address]Ph# [phone] MCV 97.7 fL Normal 80.0-99.0 [facility] Comment on above: Order Comment: Campu s: M Performed By: #### L 200.39340 ####[facility] [id number] [place], [place] [address]Ph# [phone] MONO ABS 0.40 K/CU MM Normal 0.1-1.1 [facility] Comment on above: Order Comment: Campu s: M Performed By: #### L 200.79566 ####[facility] [id number] [place] [address]Fg# [phone] Monocytes/100 leukocytes 6.4 % Normal 2-10 [facility] Comment on above: Order Comment: Campu s: M Performed By: #### L 200.45618 ####[facility] [id number] [place], [place] [address]Ag# [phone] Neutrophils 3.70 K/CU MM Normal 2.0-8.3 [facility] Comment on above: Order Comment: Campu s: M Performed By: #### L 200.09485 ####[facility] [id number] [place] [address]Jf# [phone] Neutrophils/100 WBC Auto (Bld) 55.7 % Normal 45-75 [facility] Comment on above: Order Comment: Campu s: M Performed By: #### L 200.16136 ####[address] [address]Xt# [phone] Platelet mean volume (PMV) 8.6 fL Low 9.4-12.4 [facility] Comment on above: Order Comment: Campu s: M Performed By: #### L 200.32885 ####[facility] EIEUYCYMES[address] [place], [place] [address]Fq# [phone] Platelets 304 K/CU MM Normal 150-450 [facility] Comment on above: Order Comment: Campu s: M Performed By: #### L 200.43801 ####[facility] [id number] [place] [address]Lh# [phone] WBC (Leukocytes) 6.6 K/CU MM Normal 4.5-11.0 [facility] [place] Comment on above: Order Comment: Campu s: M Performed By: #### L 200.29986 ####[facility] [id number] [place] [address]Ra# [phone] ED DOCon 10-27-2017 ED DOC PHY SICIAN ASSESSMENT =======RECORDS: Discharge ReportEvent Time: 10/27/2017 00:12: FlexChartDataEvent Time: 10/27/2017 00:45Status: [facility] [[id number]]Attending Rfsoahswr01 / F / 1976Chart (V2b)Chart created at 10/27/2017 00:00 by Peri Good closed at 10/27/2017 00:10Entry in Emergency Department at 10/26/2017 21:20Patient Name: Dorothea Rutledge Record Number: [id number]: 10/27/2017 00:00 EnteredDepartment at: 10/26/2017 21:20 Patient Seen at:10/26/2017 21:31 Historian: PatientPCP: LonaAngie montes Complaint:10/20/17 pt had ERCP with sphynctoidectomy.Also states n/v, recent dx of lung mass withc/o sob.Initial Vital Signs reviewed.Temperature: 98.5 F (36.9 C). Pulse: 93. Respiratory Rate:20. Blood-pressure:125/89. Oxygen Saturation: 97%.History of Present Illness:Patient was brought to the emergency department [facility]. Chief complaintsabdominal pain and shortness of breath. [facility] PATIENT NAME: DOROTHEA RUTLEDGE M[address] [facility] [address] Pearce MEDICAL REC #: [id number], [place] [address] DEPARTMENT CHART EMERGENCY DEPARTMENT PHYSICIANPatient is a 41-year-old female. She has a history offactor V Leiden. [facility] She actually lives in [place]. She works as an[employer] and [employer]. 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 Shehad a sphincterotomy as well. She did have somecomplications postprocedure. She has some elevated liverfunction tests. Shes been having abdominal pain since theprocedure. She states shes continuing to haveabdominal pain. She comes in today complaining of abdominaldiscomfort as well as some shortness ofbreath. She states she is on Coumadin. She states her lastINR was 1.3. Her family physician follows herCoumadin level. She took 3-1/2 mg today. She also has ahistory of some lung masses for which shesupposed to see her family doctor on Tuesday for.She has no headaches or blurry vision. She has no chestpain. She does have some shortness of breath.Shes had some diffuse abdominal discomfort which is notnew for her. Shes had slight nausea andvomiting. She denies diarrhea or constipation. There is noblood in her urine or stool. No dysuria orurinary frequency. She has no vaginal bleeding ordischarge. She has no numbness tingling or weakness inthe upper or lower extremities.Review of Systems. Respiratory: positive for Dyspnea GI:positive for Abd. Pain All other systemsreviewed and negative..Past History, Medications, Allergies, Social History andFamily History reviewed in nurses note.Medications: Reviewed RN Note.Allergies: Reviewed RN NotePenicillins(Rash), Morphine(*N/A), neurontin(neurontin),TO PAMAX(EYE LIDS TWICH)Social History: Reviewed RN Note. [facility] PATIENT NAME: DOROTHEA RUTLEDGE [id number]ce MEDICAL REC #: [id number], [place] [address] DEPARTMENT CHART EMERGENCY DEPARTMENT PHYSICIANFamily History: Reviewed RN NotePhysical Examination: General: Alert and Well DevelopedHEENT: Normal ENT inspection.Eyes: Lids Normal; . Oropharynx / Throat: NormalPharynx. Neck: No Lymphadenopathy, NoMeningismus and Supple Respiratory: No Resp Distress, Chestnon-tender and Normal Breath Sounds; LUNGSARE CLEAR TO AUSCULTATION BILATERALLY Cardio-Vascular: Nomurmur, No rub and RRR Abdomen: Normal BowelSounds, No Organomegaly and Soft; slight tenderness onpalpation throughout her abdomen. No rebound orguarding Back: No CVA tenderness, No Midline Tenderness andNon-tender Extremity: No Calf Tenderness, Noedema and Normal Equal pulses Neurological: Alert, OrientedX3 and No Gross Weakness Skin: No rash, NoPetechiae, Warm and Dry Psychological: Mood/Affect Normaland Normal Memory/JudgmentBMP, information as of 10/26/2017, 9:32 pm142 --------+--------+----- ---andlt; 120* Anion Gap = 124.2 BUN/CREA: 19; CALCIUM TOTAL: 8.5 Mg/DlCBC W/DIFF, information as of 10/26/2017, 9:47 pm97.7/ 12.6 /6.6 andgt;------andlt; 304/ 37.5 /N:55.7BASO ABS: 0.10 K/Cu Mm; BASOPHIL %: 0.8 %; EOS ABS: 0.30K/Cu Mm; EOSINOPHIL %: 5.2 %; IMMATR GRAN ABS:0.00 K/Cu Mm; IMMATURE GRAN %: 0.3 %; LYMPH %: 31.6 %;LYMPH ABS: 2.10 K/Cu Mm; MCHC: 33.6 Gm/Dl; MONOABS: 0.40 K/Cu Mm; MONOCYTE %: 6.4 %; MPV: 8.6; NEUTROPHILABS: 3.70 K/Cu Mm; NRBC: 0.0 %; RBC: 3.84 M/CuMm; RDW: 12.8PT, information as of 10/26/2017, 9:47 pmINR: 1.2*PTS: 13.1 SecondsLIPASE, information as of 10/26/2017, 9:47 pm [facility] PATIENT NAME: DOROTHEA RUTLEDGE M[address] [facility] [address] Pearce MEDICAL REC #: [id number], [place] [address] DEPARTMENT CHART EMERGENCY DEPARTMENT PHYSICIANLIPASE: 74 U/LLIVER, information as of 10/26/2017, 9:47 pmA/G RATIO: 1.1; ALBUMIN: 3.7 Gm/Dl; ALK PHOS: 186 U/L; BILIDIRECT: 0.05 Mg/Dl; BILI TOTAL: 0.2 Mg/Dl;GLOBULIN: 3.5 Gm/Dl; SGOT (AST): 54 U/L; SGPT (ALT): 173Iu/L; TP: 7.2 Gm/DlTROPONIN I POC, information as of 10/26/2017, 9:55 pmPOC Trop-I: 0.00Cardiogram: Interpreted by me. Rate: 88 bpm. RateNormalRhythm Sinus RhythmAxis NormalIntervalsNormalQR S NormalST/T Non-Specific ST Changes Comparison:Unchanged from 07/04/2012. Monitor / RhythmStrip: NSRImaging Study Obtained:CT ABD/PEL W IV CONTRAST ONLYImaging Study Obtained:CT ANGIO (THORAX) FOR PERadiology: Interpreted by Radiologist.CT abdomen and pelvis was interpreted by the radiologist asirregular shape of the inferior vena cavafilter as described above. Comparison to prior outsideimaging is recommended.CT chest was interpreted by the radiologist as no CTevidence of acute pulmonary embolism. A fewsubcentimeter pulmonary nodules, largest measuring 6 mm asdescribed above. Comparison with prior outsidecross-sectional chest imaging is recommended. Follow-up gracia Fleischner Society recommendations..Medica l Decision MakingWhile here in theIV access was obtained. She was placed on monitoring and evaluation advisor.Shes been in normal sinus rhythm. EKG wasobtained. It is unchanged from her prior. CT chest wasnegative for any blood clots. It did show a fewsubcentimeter pulmonary nodules. She is aware of these. She [facility] PATIENT NAME: DOROTHEA RUTLEDGE M[address] [facility] [address] Pearce MEDICAL REC #: [id number], [place] [address] DEPARTMENT CHART EMERGENCY DEPARTMENT PHYSICIANactually discussed him with me and told larisa has an appointment this Tuesday with her familyphysician to discuss these pulmonary nodules. This isnot a new finding. CT abdomen and pelvis was obtained. Itsbeen reviewed. 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 They cannotremove it.Blood work has been obtained. It is all been reviewed bymyself. INR is 1.2. She actually told me it was1.3. She is on 3 to half milligrams of Coumadin. She statesher family physician follows this. I willgive her 5 mg of Coumadin this evening. She has anappointment to be seen by her family physician onFriday of this week. Her liver function tests are slightlyelevated. This is known as well. This is notnew. This is her current baseline.At this point Rowena gone back and reassessed her. She isresting very comfortably in bed. She ishemodynamically stable. She is afebrile. Shesneurologically intact. Note that I did give her someZofran initially. She actually asked for Phenergan by name.She states that Phenergan works better forher. She has asked for pain medication as well. She did get1 dose of Dilaudid here.Overall Im confident she can be discharged home. Herworkup is as above. Things are at their baseline.She has been given a dose of Coumadin. She has anappointment to be seen by her family physician thisFriday. She is instructed to keep this appointment.Clinical Impression:1. slightly elevated liver function tests with history ofsame2. subtherapeutic INR of 1.23. pulmonary nodule seen on CT, known to patientDisposition: Discharged *Home. Condition: StableEMS run report reviewed (not applicable for EMT squads).. [facility] PATIENT NAME: DOROTHEA RUTLEDGE M[address] [facility] [address] Pearce MEDICAL REC #: [id number], [place] [address] DEPARTMENT CHART EMERGENCY DEPARTMENT PHYSICIANMSE completed.I was the primary ED attending..Patient transported to ED by EMS with medical direction bySCEP physician (not applicable for EMT squads).. at 00:10 ===DISCHARGE REPORT===: Discharge ReportEvent Time: 10/27/2017 00:12Status: DraftReasons to Return to the ER:You must return to the ER for any new, worsening orchanging symptoms, or if you feel more ill or sick inany way. This is the most important thing to remember.Follow-up:The care you received in the ER was given on an emergencybasis only, and it is often not possible tocompletely treat or diagnose a problem in a single ERvisit. You must see your follow-up doctor for arecheck within a week unless you receive instructions witha different timeframe for follow-up. Pleasefollow all your discharge instructions.Medication s:Unless the ER doctor tells you differently, you should takeall your regular medications and any newmedications prescribed today. Because it is not possiblefor the ER doctor to review all of yourmedication side effects or interactions, you must reviewpossible side effects and interactions with yourpharmacist when you get your prescriptions filled.EKG and Radiology Results:A tinsmith helper or radiologist will review any EKG orradiology results provided by the ER doctor. We willcontact you if the results in the final EKG or radiology [facility] PATIENT NAME: DOROTHEA RUTLEDGE M[address] [facility] [address] Pearce MEDICAL REC #: [id number], [place] [address] DEPARTMENT CHART EMERGENCY DEPARTMENT PHYSICIANreports require a change in treatment.Culture Results:Cultures may have been ordered during your ER visit. Wewill contact you if the culture results require achange in treatment.Referrals:Mos t referrals to specialists come from the on-call listYou should make your regular doctor aware of anyreferrals before you schedule the appointment so that theyare aware and can make suggestionsDIAGNOSIS:sl ightly elevated liver function tests with history ofsame, subtherapeutic INR of 1.2, pulmonary noduleseen on CT, known to patientINSTRUCTIONS:Ple ase let your family physician know your INR was 1.2today. She needs to adjust your Coumadin dose.Definitely take your Coumadin tomorrow. Please follow-upwith your family physician in regards to yourPulmonary nodule seen on CT. It is very important you go toyour appointment on Tuesday with your familyphysician.MEDICAT IONSAt this time we have no recommendations that you stoptaking any medications, or start taking any newones.My signature below indicates that I have received andunderstand the oral instructions regarding mymedical problem. I also acknowledge receipt of this writteninstruction sheet including a list of majortests and procedures ordered during my visit. I willarrange for follow-up care as indicated by theseinstructions and referrals.This signed original will be kept in my medical record. [facility] PATIENT NAME: DOROTHEA RUTLEDGE M[address] [facility] [address] Pearce MEDICAL REC #: [id number], [place] [address] DEPARTMENT CHART EMERGENCY DEPARTMENT PHYSICIANYour signature below indicates consent for Case Managementto contact [facility] providers in [facility] to meet your ongoing healthcare needs. This willallow forcontinuity of care once you leave theEmergency Department. This exchange of informationwillinclude, but not be limited to, disclosure of yourpatient information and possible release of records. :FlexChartDataEvent Time: 10/27/2017 00:45 ==DEMOGRAPHICS========= Emergisoft Patient: DOROTHEA RUTLEDGESex: FDOB: 1975Age: 41 yrAccount No: [id number]: [id number] Date: :10/26/2017Address[address]Address: [place] [address] ==REGISTRATION========= ED Number: [id number]: Marital Status: XFinancial Class: MPPS =TRIAGE ====Priority: 3 - UrgentComplaint: Abdominal PainComplaint: Nausea and VomitingStated Complaint: 10/20/17 pt had ERCP withsphincterectomy. Also states n/v, recent dx of lung masswith c/o sob.Arrival Date: 10/26/2017 21:20Triage Date: 10/26/2017 21:23Mode of Arrival: AmbulanceTransfer From: *Public BuildingWC: NLanguage: Danish [facility] PATIENT NAME: DOROTHEA RUTLEDGE M[address] [facility] [address] Pearce MEDICAL REC #: [id number], [place] [address] DEPARTMENT CHART EMERGENCY DEPARTMENT PHYSICIANTransport: [employer] =BED =C30 In: 10/26/2017 21:30:31 10/26/201721:30:31 TGI1D56 (Removed From) Out: 10/27/2017 00:55:11010/27/2017 00:55:11 MMR2 =PROVIDERS =======Emergency Medical Service Provider Contact:10/26/2017 21:23:23 EMSEnd:Eugenia Arroyo Provider Contact: 10/26/201721:30:42 BQM3Lrb:MD Peri Breaux Provider Contact: 10/26/201721:31:18 MFFEnd: ====TRIAGE HISTORY ====ALLERGIESAllergic To: Penicillins - Rash 10/26/2017 21:30 SGB2Umvqerkg To: Morphine - *N/A 10/26/2017 21:30 QTP8Iojuarhh To: neurontin - neurontin 10/26/2017 21:10YVG6AVHOPLZ MEDSName: atorvastatin 20 mg po daily hs 10/27/2017 00:09HPS4Buoa: COUMADIN 3.5 MG TABLET - PO daily 10/27/201700:23 MMR2 [facility] PATIENT NAME: DOROTHEA RUTLEDGE M[address] MEDICAL REC #: [id number], [place] [address] DEPARTMENT CHART EMERGENCY DEPARTMENT PHYSICIANName: TOPAMAX 25MG TABLET - PO bid 10/27/2017 00:23 KGG7Zzlf: KLONOPIN 0.5MG TABLET - PO bid and 1mg HS10/27/2017 00:23 QCM6Smns: LASIX 40MG TABLET - PO daily 10/27/2017 00:23 WFA5Gnmu: POTASSIUM CHLORIDE 20MEQ EXTENDED-RELEASE TABLET- PO daily 10/27/2017 00:23 KTN2Fvrh: VALTREX 500MG TABLET - PO daily 10/27/2017 00:26VVK8Uuxm: EFFEXOR 225MG TABLET - PO daily 10/27/2017 00:62JLP9Qhvn: risperdone 0.25mg po tab bid and 0.5 hs10/27/2017 00:23 XBB8Sgtb: REQUIP 0.25MG TABLET - PO bid and 0.5 HS10/27/2017 00:23 XKI8Ppng: fiorcet unk dose q4h prn 10/27/2017 00:23 CZU7Mzuk: IMITREX 50MG TABLET - PO prn 10/27/2017 00:60XNL9Sjdb: PHENERGAN 25MG - PO prn 10/27/2017 00:23 VOB8Khvk: 10/27/17 10/27/2017 00:23 QLI1JUMTOWOVuusvmi: Other Medical IVC Clot10/26/2017 21:30 AGX4Fvtsuaa: Other Medical DVT 10/26/2017 21:30 XQR6Wjzswdv: Other Medical CVA WITH HEMMORHAGE 10/26/201721:30 BRE0Bvhaohc: Other Medical PES 10/26/2017 21:30 ZLL3Ahcagqo: Migraines 10/26/2017 21:30 JXG4Avcexxi: factor 5 deffinciency 10/26/2017 21:30 MMR2 [facility] PATIENT NAME: DOROTHEA RUTLEDGE M[address]ce MEDICAL REC #: [id number], [place] [address] DEPARTMENT CHART EMERGENCY DEPARTMENT PHYSICIANPAST SURGERY HISTSurgery: x2 10/26/2017 21:30 PHC6Vttwvqm: Hysterectomy-complete 10/26/2017 21:30 BHK6Pumprbf: Cholecystectomy 10/26/2017 21:30 HBF4Shcllqi: right axillae bx 10/26/2017 21:30 GIV8Krumeuw: green filter 10/26/2017 21:30 FLI3Vbpckoq: Appendectomy 10/26/2017 21:30 LDR5Jekuraq: ERCP x 2 10/26/2017 21:30 NFZ4Ncnlndw: Bile Duct repair 10/26/2017 21:30 VTE3KLML SOCIAL HISTSocial History: Lives with family or significant other10/26/2017 21:30 QUZ7Eqfrgc History: Alcohol - None 10/26/2017 21:30 JKO6Dimjvv History: Recreational Drugs - None 10/26/201721:30 ROM9Adeosd History: Smoker-1 PPD 10/26/2017 21:13XZV6Pieoxv History: Denies Domestic Violence 10/26/201721:30 JPE2Xsmfal History: Denies thoughts of self harm.10/26/2017 21:30 NCH5Dofedo History: Have you traveled in the past month?Where NO 10/26/2017 21:30 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 Pearce MEDICAL REC #: [id number], [place] [address] DEPARTMENT CHART EMERGENCY DEPARTMENT PHYSICIANImmunization: Flu Vaccine-no 10/26/2017 21:30 MMR2 =NURSING ASSESSMENT ====ASSESSMENT NOTES ==10/26/2017 22:00 Agree with triage note. Pt states n/vstarting today while at work. Pt states abd bloating anddistension with recent surgical hx. Pt denies blood inemesis. Pt bspx4. Abd is tender to light palpation. 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 Pt resps evenand unlabored. Lungs cta. Pt is Aandamp;Ox4. Call light inreach. 10/26/2017 23:45 MMR2 =TREATMENT =======10/26/2017 22:21 Hourly Rounding - Rounding 10/26/201722:22 DXY6Tjkqiahnwvt/Toileti ng YPain 7Position Comfortable YSafe Environment YFall Risk Change N010/26/2017 22:22 Patient Interaction - Allergy Band onPt. 10/26/2017 22:22 DKN108 22:22 Patient Interaction - Name Band on Pt10/26/2017 22:22 NOU143 22:22 Staff/ Patient Interaction - Calllight placed within reach. 10/26/2017 22:22 EVJ180 22:22 Staff/ Patient Interaction -Introduced self and assessed patients needs. 10/26/201722:22 PFD905 22:22 Cardiac - night monitor initiated.10/26/2017 22:22 MMR2 [facility] PATIENT NAME: DOROTHEA RUTLEDGE [address] Pearce MEDICAL REC #: [id number], [place] [address] DEPARTMENT CHART EMERGENCY DEPARTMENT UFWYLBCJP13/07/2018 22:22 Cardiac - Cardiac monitorinterpretation nsr .10/26/2017 22:22 LSV579 22:22 Cardiac - Continuous Pulse Oximeterapplied. 10/26/2017 22:22 LCR216 23:27 Hourly Rounding - Rounding 10/26/201723:28 RGP4Agbjtqckvww/Toileti ng NPain 7Position Comfortable YSafe Environment YAssessment Note Dr. Breaux notified.Fall Risk Change N010/26/2017 23:41 Primary DOC Guide - A. 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 Fall RiskAssessment (Age andlt;65) 10/26/2017 23:42 TSQ0Tdde Risk Score 1-2 Points = Low Risk. 3-4 Points =Moderate Risk. 5 or more points = High Risk. 0Fall Score Greater andgt;= 3? No10/26/2017 23:42 Primary DOC Guide - D. PsychosocialAssessment 10/26/2017 23:42 XYS3Muzn the Last 2 weeks, how often have you had littleinterest or pleasure in doing things (0) Not at AllIs Psychosocial Assessment Score 3 or more? If score is3 or more please consult ED Navigator! NoTotal Psychosocial Assessment Score 0Over the last 2 weeks, how often have you been feelingdown, depressed or hopeless (0) Not at All [facility] PATIENT NAME: DOROTHEA RUTLEDGE M[address] [facility] [address] MEDICAL REC #: [id number], [place] [address] DEPARTMENT CHART EMERGENCY DEPARTMENT ATVTNBFXI94/07/2018 23:42 Primary DOC Guide - E. Family ViolenceAssessment 10/26/2017 23:42 MMR2Do you feel safe and well cared for: Yes10/27/2017 00:44 Hourly Rounding - Rounding 10/27/201700:44 YDP2Kfbtkvxbxcc/Toileti ng NPain 5Position Comfortable YSafe Environment YFall Risk Change N010/27/2017 00:54 Admit/Discharge - Discharge infomationreviewed with pt 10/27/2017 00:54 QJR021 00:54 Admit/Discharge - Ambulated withsteady gait home 10/27/2017 00:54 OOV4Rphyq: with her friend to take her home =MEDICATIONS ======IV =====IV Fluid: B 10/26/2017 21:56 10/26/2017 21:38RZX5Ttrb #: 1 Fluid: Saline LockRate: ml/hr Location: wrist rightNdl Gauge: 20 # Attempts: 1Notes: No s/s of infiltration. Flushes well andaspirates blood.IV Fluid: E 10/26/2017 23:40 10/26/2017 23:72SUL9Tdct #: 1 Rate: ml/hr Location: wrist rightNdl Gauge: 20 # Attempts: 1Notes: IV infiltrated during ct scan. Dressing applied.IV tip intact.IV Fluid: B 10/26/2017 22:21 10/26/2017 22:82JNA3Jufh #: 2 Fluid: Saline LockRate: ml/hr Location: antecubital fossa rightNdl Gauge: 20 # Attempts: 1 [facility] PATIENT NAME: DOROTHEA RUTLEDGE M[address] [facility] [address]ce MEDICAL REC #: [id number], [place] [address] DEPARTMENT CHART EMERGENCY DEPARTMENT PHYSICIANNotes: No s/s of infiltration. Flushes well andaspirates blood.IV Fluid: E 10/26/2017 23:37 10/26/2017 23:81DZH4Eiao #: 2 Rate: ml/hr Location: antecubitalfossa rightNdl Gauge: 20 # Attempts: 1Notes: IV site infiltrated during CT scan. Iv tipintact. Dressing applied.IV Fluid: B 10/26/2017 23:40 10/26/2017 23:46BBB1Hjeg #: 3 Fluid: Saline LockRate: ml/hr Location: arm rightNdl Gauge: 20 Notes: Started in CT scan. Flusheswell.IV Fluid: E 10/27/2017 00:40 10/27/2017 00:85QUO2Dflc #: 3 Rate: ml/hr Location: arm rightNdl Gauge: 20 Notes: IV tip intact. Dressingapplied. No s/s of infiltration. I AND O VITAL S VS -ROUTINE Time: 10/26/2017 21:23B/P: 125/89 - Left Upper Arm - Lying - Machine Pulse:93 - Monitor Resp: 20Sa02: 97 Room Air Temp: 98.50 F - Oral10/26/2017 21:30 RCR1BX-Xsha Time: 10/26/2017 21:23 Pain Level: 7010/26/2017 21:30 JFT5QN-JIB Time: 10/26/2017 21:23 Visual: 4 Verbal: 5 Motor:6 GCS Total: 15 10/26/2017 21:30 HXC5VY-AI/WT Time: 10/26/2017 21:23 Ht: 162.5 cm StatedWeight: 81.7 kg Stated 10/26/2017 21:30 PEV0NM-Evynzi Time: 10/26/2017 21:23 10/26/2017 21:30 DXL5SX-QCT Time: 10/26/2017 21:23 10/26/2017 21:76LMK9HP-Thiri Time: 10/26/2017 21:23 map 104 10/26/201721:30 MMR2 [facility] PATIENT NAME: DOROTHEA RUTLEDGE M[address] MEDICAL REC #: [id number], [place] [address] DEPARTMENT CHART EMERGENCY DEPARTMENT PHYSICIANVS-ROUTINE Time: 10/26/2017 23:26B/P: 110/66 - Left Upper Arm - Lying - Machine Pulse:81 - Monitor Resp: 18Sa02: 98 Room Air 10/26/2017 23:26 KCR5GO-Thoh Time: 10/26/2017 23:26 Pain Level: 7010/26/2017 23:26 HVX5IJ-WGU Time: 10/26/2017 23:26 10/26/2017 23:26 UPO8BT-QB/WT Time: 10/26/2017 23:26 10/26/2017 23:26 TWF1OY-Nscvlj Time: 10/26/2017 23:26 10/26/2017 23:26 MAE6EG-ODV Time: 10/26/2017 23:26 10/26/2017 23:84ICI3JR-Ecqtc Time: 10/26/2017 23:26 MAP 81 10/26/201723:26 WQJ1PB-YRCRGHA Time: 10/27/2017 00:42B/P: 110/68 - Left Upper Arm - Lying - Machine Pulse:75 - Monitor Resp: 16Sa02: 96 Room Air 10/27/2017 00:44 PCM4PK-Yyco Time: 10/27/2017 00:42 Pain Level: 00:44 AUB3QY-JHC Time: 10/27/2017 00:42 10/27/2017 00:44 STJ4TY-EX/WT Time: 10/27/2017 00:42 10/27/2017 00:44 FHR0GQ-Cnqihi Time: 10/27/2017 00:42 10/27/2017 00:44 XKK0SP-CPH Time: 10/27/2017 00:42 10/27/2017 00:50WCN3RO-Rqpvi Time: 10/27/2017 00:42 MAP 84 10/27/201700:44 MMR2 =ORDERS ====Discharge patient 10/27/2017 00:13N/AOrdered: 10/27/2017 00:11 By . OtherReviewed: 10/27/2017 00:13 By . OtherCoumadin (PO)(1mg) DOSE: 5 mgPO 10/27/2017 00:40N/AOrdered: 10/26/2017 23:46 By Peri Marrero Time: 10/27/2017 00:40 By Peri Bueno Time: 10/26/2017 23:48 WER5Iynfsaya (IV)*(2mg/ml) DOSE: 1 mgIV 10/27/2017 00:17 [facility] PATIENT NAME: DOROTHEA RUTLEDGE [id number] MEDICAL REC #: [id number], [place] [address] DEPARTMENT CHART EMERGENCY DEPARTMENT PHYSICIANN/AOrdered: 10/26/2017 23:46 By Peri Marrero Time: 10/27/2017 00:17 By Peri Bueno Time: 10/26/2017 23:48 DLK1Yyzvymclk (IVPB)(12.5mg/50ml NS) DOSE: 12.5 mgIV 10/27/201700:17N/AOrder ed: 10/26/2017 23:46 By Peri Marrero Time: 10/27/2017 00:17 By Peri Bueno Time: 10/26/2017 23:48 LAI5KJHJON ORDER: LIPA 10/26/2017 22:24NoneOrdered: 10/26/2017 22:23 Completed Time:10/26/2017 22:24 Results Time: 10/26/2017 22:23EXTERN ORDER: LIVER 10/26/2017 22:23NoneOrdered: 10/26/2017 22:23 Completed Time:10/26/2017 22:23 Results Time: 10/26/2017 22:23EXTERN ORDER: GFRP 10/26/2017 22:23NoneOrdered: 10/26/2017 22:23 Completed Time:10/26/2017 22:23 Results Time: 10/26/2017 22:23EXTERN ORDER: POCTROP 10/26/2017 22:09NoneOrdered: 10/26/2017 22:09 Completed Time:10/26/2017 22:09 Results Time: 10/26/2017 22:08CT abd and pel with IV con only 10/26/2017 23:31N/AOrdered: 10/26/2017 21:57 By Peri Marrero Time: 10/26/2017 23:31 By Peri Rojasion: Abdominal PainNoted Time: 10/26/2017 23:03Question: Are you or think you might be ?Answer: NOQuestion: Patient has history of true RCM allergy?Answer: NOCT chest with con for PE 10/26/2017 23:19N/A *[facility] PATIENT NAME: DOROTHEA RUTLEDGE M[address] [facility] [address] MEDICAL REC #: [id number], [place] [address] DEPARTMENT CHART EMERGENCY DEPARTMENT PHYSICIANOrdered: 10/26/2017 21:57 By Peri Marrero Time: 10/26/2017 23:19 By Peri Wymandication: sob, history of PENoted Time: 10/26/2017 23:03Question: Are you or think you might be ?Answer: NOQuestion: Patient has history of true RCM allergy?Answer: NOLab: Add On Test (excluding POC tests) 10/26/201722:03N/AOrder ed: 10/26/2017 21:57 By Peri Bueno Time: 10/26/2017 22:03 SUA7Qpcbkbyi: Test to be added:Answer: liver function tests, lipaseIV hl10/26/2017 21:51N/AOrdered: 10/26/2017 21:49 By Peri Marrero Time: 10/26/2017 21:50 By Peri Pierceardiac monitor 10/26/2017 21:51N/AOrdered: 10/26/2017 21:49 By Peri JoeosCompleted Time: 10/26/2017 21:50 By Peri BreauxZofran (IV)*(2mg/ml) DOSE: 4 mgIV 10/26/2017 22:03N/AOrdered: 10/26/2017 21:49 By Peri JoeosCompleted Time: 10/26/2017 22:02 By Peri JoeosNoted Time: 10/26/2017 21:50 MMR2PT/INR order only if on coumadin/warfarin/Janto ven10/26/2017 22:09N/AOrdered: 10/26/2017 21:31 By ProtocolCompleted Time: 10/26/2017 22:09 By ProtocolNoted Time: 10/26/2017 21:50 [id number] Time: 10/26/2017 22:08BMP 10/26/2017 22:23N/AOrdered: 10/26/2017 21:31 By Protocol *[facility] PATIENT NAME: DOROTHEA RUTLEDGE [id number] [facility] [address] Pearce MEDICAL REC #: [id number], [place] [address] DEPARTMENT CHART EMERGENCY DEPARTMENT PHYSICIANCompleted Time: 10/26/2017 22:23 By ProtocolNoted Time: 10/26/2017 21:50 [id number] Time: 10/26/2017 22:23CBC with diff 10/26/2017 22:03N/AOrdered: 10/26/2017 21:31 By ProtocolCompleted Time: 10/26/2017 22:03 By ProtocolNoted Time: 10/26/2017 21:50 DHH2Cryufut Time: 10/26/2017 22:03EKG and most recent EKG 10/26/2017 21:42N/AOrdered: 10/26/2017 21:31 By ProtocolCompleted Time: 10/26/2017 21:41 By ProtocolNoted Time: 10/26/2017 21:32 RJRO2 by cannula at 2L if SAT andlt;= 91% 10/26/2017 21:33N/AOrdered: 10/26/2017 21:31 By ProtocolNoted Time: 10/26/2017 21:33 LSG6OHJ troponin 10/26/2017 21:51N/AOrdered: 10/26/2017 21:31 By ProtocolNoted Time: 10/26/2017 21:50 MMR2 =DISCHARGE =======Diagnosis: slightly elevated liver function testswith history of same, subtherapeutic INR of 1.2, pulmonarynodule seen on CT, known to patient 10/27/2017 00:12Disposition: Time: 10/27/2017 00:11By: Peri Rubyrrussell Time: 10/27/2017 00:55Type: DischargeCondition: Stable for admission/discharge/tra nsferafter emergency evaluation/treatment Category: *NOTAPPLICABLEConcurred : 10/27/2017 00:13 Referral:10/27/2017 00:12 ==PRESCRIPTIONS======== [facility] PATIENT NAME: DOROTHEA RUTLEDGE [id number] MEDICAL REC #: [id number], [place] [address] DEPARTMENT CHART EMERGENCY DEPARTMENT PHYSICIAN ======CHARGES =======SIGNATURE======= Peri Breaux MD MFRadha Mike RJRAMANDA [facility] AMCBMrichmond Arroyo MMR2 [facility] PATIENT NAME: DOROTHEA RUTLEDGE [id number] [facility] [address] Pearce MEDICAL REC #: [id number], [place] [address] DEPARTMENT CHART EMERGENCY DEPARTMENT PHYSICIAN [facility] ED Documentation This is a preliminar y report only, as the practitioner review and authentication has not occurred. [facility] EKGon 10-27-2017 EKG Procedure Date and Time: 10/26/172131Test Reason : STATBlood Pressure : / mmHGVent. Rate : 088 BPM Atrial Rate : 088 BPMP-R Int : 154 ms QRS Dur : 086 msQT Int : 368 ms P-R-T Axes : 039 002 007 degreesQTc Int : 445 msNormal sinus rhythmNonspecific T wave abnormalityAbnormal ECGWhen compared with ECG of 04-JUL-2012 00:33,No significant change was foundConfirmed by THUAN MO A. ([id number]) on 10/27/2017 11:30:28 PMReferred By: Peri Breaux Confirmed By:Valerie MO M.D.FACC ___ MiguelDDandT: 10/26/172TDandT:[facility] PATIENT NAME: DOROTHEA RUTLEDGE [facility] [address] Pearce MEDICAL REC #: [id number], [place] [address] DATE:DISCHARGE DATE: 10/27/17ATTENDING PHY: Peri Breaux MDELECTROCARDIOGRAM REPORTCLBcc:[facility] PATIENT NAME: [facility]GE [facility] REC #: [id number], [place] [address] DATE:DISCHARGE DATE: 10/27/17ATTENDING PHY: Peri Breaux MDELECTROCARDIOGRAM REPORT Normal [facility] ELECTROCARDIOGRAM REPORT Normal [facility] GFR ESTon 10-27-2017 IF AMER Greater than 60 Normal [facility] Comment on above: Order Comment: Campu s: M Performed By: #### L 500.05270, L500.41546, L500.13968, L500.62918 ####[facility] [id number] [place], [place] [address]No# [phone] IF non-AFR AMER Greater than 60 Normal [facility] Comment on above: Order Comment: Campu s: M Performed By: #### L 500.86204, L500.21888, L500.98893, L500.13234 ####[facility] [id number] [place], [place] [address]Mu# [phone] LIPASEon 10-27-2017 Lipase 74 U/L Normal 73-393 [facility] Comment on above: Order Comment: Campu s: M Performed By: #### L 500.87644, L500.23712, L500.65597, L500.49878 ####[facility] [id number] [place], [place] [address]Hl# [phone] LIVERon 10-27-2017 Alanine aminotransferase (ALT) 173 U/L High 13-61 [facility] Comment on above: Order Comment: Campu s: M Result Comment: RESU LTS MAY BE FALSELY DEPRESSED AFTER THE ADMINISTRATION OFSULFASALAZINE AND/OR SULFAPYRIDINE. Performed By: #### L 500.91470, L500.04049, L500.44090, L500.51872 ####[facility] KHILNZWCPV[address] [place], [place] [address]Xw# [phone] Albumin 3.7 g/dL Normal 3.2-5.0 [facility] Comment on above: Order Comment: Campu s: M Performed By: #### L 500.94468, L500.66785, L500.32410, L500.78892 ####[facility] [id number] [place], [place] [address]Rn# [phone] Albumin/Globulin Ratio 1.1 {ratio} Normal 0.8-2.0 [facility] Comment on above: Order Comment: Campu s: M Performed By: #### L 500.15200, L500.02185, L500.46066, L500.67860 ####[facility] [id number] [place] [address]Kq# [phone] ALK PHOS 186 U/L High 45-117 [facility] Comment on above: Order Comment: Campu s: M Performed By: #### L 500.06332, L500.46248, L500.53934, L500.15521 ####[facility] [id number] [place], [place] [address]Ii# [phone] BILI DIRECT 0.05 MG/DL Normal 0.00-0.20 [facility] Comment on above: Order Comment: Campu s: M Performed By: #### L 500.72742, L500.00660, L500.96610, L500.69508 ####[facility] [id number] [place] [address]Rt# [phone] BILI TOTAL 0.2 MG/DL Normal 0.2-1.0 [facility] Comment on above: Order Comment: Campu s: M Performed By: #### L 500.22168, L500.65283, L500.42797, L500.14204 ####[facility] APV[address]HLY[address] [place], [place] [address]Uz# [phone] Globulin 3.5 g/dL Normal 2.2-4.2 [facility] Comment on above: Order Comment: Campu s: M Performed By: #### L 500.47455, L500.88851, L500.65536, L500.44738 ####[facility] [id number] [place], [place] [address]Xx# [phone] Protein 7.2 g/dL Normal 6.0-8.5 [facility] Comment on above: Order Comment: Campu s: M Performed By: #### L 500.62967, L500.66617, L500.41442, L500.52077 ####[facility] [id number] [place], [place] [address]Vd# [phone] SGOT (AST) 54 U/L High 8-34 [facility] Comment on above: Order Comment: Campu s: M Result Comment: Mode rate Hemolysis, Result may be falsely increased.RESULTS MAY BE FALSELY DEPRESSED AFTER THE ADMINISTRATION OFSULFASALAZINE AND/OR SULFAPYRIDINE. Performed By: #### L 500.70661, L500.29714, L500.29844, L500.47238 ####[facility] SI[address]ZRSH3[address] [place], [place] [address]He# [phone] PTon 10-27-2017 INR Coag RelTime (PPP) 1.2 {INR} High 0.9-1.1 [facility] Comment on above: Order Comment: Campu s: M Result Comment: Sony mmended PT INR therapeutic range for termite exterminator andprophylactic therapy is 2.0 - 3.0. For heart valve andshunt patients the range is 2.5 - 3.5. Performed By: #### L 300.20129 ####[facility] [id number] [place], [place] [address]Ix# [phone] PTS 13.1 SECONDS High 9.4-12.0 [facility] Comment on above: Order Comment: Óscar s: M Performed By: #### L 300.78624 ####[facility] [id number] [place], [place] [address]Gh# [phone] TROPONIN I POCon 10-27-2017 Troponin I.cardiac mass conc 0.00 ng/mL Normal 0.0-0.06 [facility] Comment on above: Result Comment: 0.0 - 0.06 NG/ML - NON-DIAGNOSTIC (REFERENCE RANGE)0.07 - 0.59 NG/ML - INDETERMINATEGreater than or equal to 0.6 NG/ML - INDICATIVE OFMYOCARDIAL DAMAGE CT ABD/PEL W IV CONTRAST ONL Yon 10-26-2017 CT ABD/PEL W IV CONTRAST ONLY CT ABD/PEL W IV CONTRAST ONLYOrdering Physician: Peri Breaux MD10/26/2017 9:58 PMCT ABDOMEN PELVIS WITH INTRAVENOUS CONTRAST:Clinical Statement: Nausea vomiting, abdominal pain, recent ERCP withsphincterotomy 10/20/2017.Comparison: None at our institution.TECHNIQUE: Axial CT images of the abdomen and pelvis afteradministration of 100 mL of intravenous contrast Isovue-370.FINDINGS:The liver, spleen, bilateral adrenal glands and pancreas are withinnormal limits. Patient is status post cholecystectomy. No extrahepaticor intrahepatic biliary ductal dilatation.Bilateral kidneys are within normal limits. No renal or ureteralcalculi. No hydroureteronephrosis.T he abdominal aorta and its major branches are unremarkable. Nolymphadenopathy. No free fluid or free air within the abdomen andpelvis. Inferior vena cava filter is identified which has a somewhatirregular shape. One of its limbs extends towards the medial cortex ofthe right kidney (image 51/131). A limb extends superomedially abutsthe posterior cortex of the body of the pancreas (image 42/131). Amedially directed limb abuts the aorta (image 56/131).The urinary bladder is unremarkable. Patient is status posthysterectomy. No adnexal masses identified.The stomach, small and large bowel are within normal limits. Theappendix is not visualized but there are no secondary signs ofappendicitis. Moderate amount of fecal material is identified withinthe colon.The subcutaneous soft tissues demonstrate a few rounded nodulardensities within the anterior abdominal wall, likely related tosubcutaneous injections.No acute osseous abnormality.IMPRESSION: 1. Irregular shape of the inferior vena cava filter as describedabove. Comparison with prior outside imaging is recommended. ---- Electronic Signature on File ----Signed By: Jonnie Hilliard [email or web address] tated: 10/26/2017 11:18 PMSigned: 10/26/2017 11:30 PM Reported By: JONNIE HILLIARD M.D. Signed By: JONNIE HILLIARD M.D. [facility] CT ANG THOR W/POST PROCon CT ANG THOR W/POST PROC CT ANG THOR W/POST PROCOrdering Physician: Peri Breaux MD10/26/2017 9:58 PMCT ANGIOGRAM THORAX WITH INTRAVENOUS CONTRAST AND WITHPOSTPROCESSING.:Cli nical Statement: Shortness of breath, history of PE.Comparison: NoneTECHNIQUE: Axial CT angiographic images of the chest afteradministration of 100 mL of intravenous contrast Isovue 370. Coronalreformats were obtained. Axial, coronal and sagittal 2-D and 3-Dreconstructions were obtained at a separate workstation by theinterpreting physician.FINDINGS:Visu alized thyroid gland, trachea and esophagus are within normallimits.The heart is normal in size. The visualized aorta and its branches aregrossly unremarkable. No CT evidence of acute pulmonary embolism.No axillary, hilar or mediastinal lymphadenopathy.No focal consolidation, pneumothorax or pleural effusion. Bilateraldependent and subsegmental atelectasis is identified, most prominentalong the bilateral lower lobes. There is a 4 mm right apicalcalcified pulmonary nodule, compatible with a calcified granuloma.There is a 4 mm groundglass nodule within the right upper lobe (image68/201). There is a 6 mm right middle lobe pulmonary nodule (image89/201). There is a 5 mm left upper lobe pulmonary nodule (image52/201). Additional right upper lobe tiny irregular groundglassopacities are identified (image 72 and 75/201). Right middle lobescarring is noted.The subcutaneous soft tissues are unremarkable.No acute osseous abnormality.IMPRESSION: 1. No CT evidence of acute pulmonary embolism.2. A few subcentimeter pulmonary nodules, largest measuringapproximately 6 mm as described above. Comparison with prior outsidecross-sectional chest imaging is recommended. Follow-up based onFleischner Society recommendations.A report was sent to the ED at the time of this dictation. ---- Electronic Signature on File ----Signed By: Iwona [email or web address] tated: 10/26/2017 11:04 PMSigned: 10/26/2017 11:18 PM Reported By: JONNIE HILLIARD M.D. Signed By: JONNIE HILLIARD M.D. [facility] Auto Diffon 10-10-2017 Basophils Auto #/vol (Bld) 0.1 E3/mcL Normal 0.0-0.2 [facility] Comment on above: Order Comment: Order Added by Discern Expert. Performed By: #### 8 [id number] ####[facility] [address]lsw6568 [place] [address] Basophils/100 WBC Auto (Bld) 1.2 % Normal 0.0-2.0 [facility] Comment on above: Order Comment: Order Added by Discern Expert. Performed By: #### 8 [id number] ####[facility] [address]cvwo[address] [place] [address] Eos Absolute 0.3 E3/mcL Normal 0.0-0.7 [facility] Comment on above: Order Comment: Order Added by Discern Expert. Performed By: #### 8 [id number] ####[facility] [address]qxqy7844 [place] [address] Eosinophils/100 leukocytes 6.0 % Normal 0.0-11.0 [facility] Comment on above: Order Comment: Order Added by Discern Expert. Performed By: #### 8 [id number] ####[facility] [address]qtnnoe4872 [place] [address] Lymphocytes 1.6 E3/mcL Normal 1.2-3.4 [facility] Comment on above: Order Comment: Order Added by Discern Expert. Performed By: #### 8 [id number] ####[facility] [address] [place] [address] Lymphocytes/100 leukocytes 28.4 % Normal 20.0-55.0 [facility] Comment on above: Order Comment: Order Added by Discern Expert. Performed By: #### 8 [id number] ####[facility] [address] [place] [address] [place] Absolute 0.4 E3/mcL Normal 0.0-0.7 [facility] Comment on above: Order Comment: Order Added by Manuel Expert. Performed By: #### 8 [id number] ####[facility] [address] [place] [address] Monocytes/100 leukocytes 7.5 % Normal 0.0-10.0 [facility] Comment on above: Order Comment: Order Added by Maneul Expert. Performed By: #### 8 [id number] ####[facility] [address] [place] [address] Neutro Absolute 3.2 E3/mcL Normal 1.4-6.5 [facility] Comment on above: Order Comment: Order Added by Manuel Expert. Performed By: #### 8 [id number] ####[facility] [place] [address] Neutro Auto 56.9 % Normal 37.0-75.0 [facility] Comment on above: Order Comment: Order Added by Discern Expert. Performed By: #### 8 [id number] ####[facility] [address] [place] [address] BMPon 10-10-2017 BUN/Creatinine Ratio 23.3 ratio Normal 5.4-30.0 [facility] Comment on above: Performed By: #### 8 [id number] ####[facility] [place] [address] Creatinine 0.6 mg/dL Normal 0.6-1.3 [facility] Comment on above: Performed By: #### 8 [id number] ####[facility] [address]qs[address]pzni[address]71 [place] [address] Urea nitrogen 14 mg/dL Normal 7-18 [facility] Comment on above: Performed By: #### 8 [id number] ####[facility] Kdpufxzxyt5817 [place] [address] Calcium 9.0 mg/dL Normal 8.4-10.2 [facility] Comment on above: Performed By: #### 8 [id number] ####[facility] [address]feqfyubfd1622 [place] [address] Chloride 111 mmol/L High 98-107 [facility] Comment on above: Performed By: #### 8 [id number] ####[facility] [address] [place] [address] CO2 22.9 mmol/L Low 24.0-30.0 [facility] Comment on above: Performed By: #### 8 [id number] ####[facility] [address]qpfrn2316 [place] [address] Glucose mass conc 95 mg/dL Normal 70-99 [facility] Comment on above: Performed By: #### 8 [id number] ####[facility] [address]mc[address] [place] [address] Potassium molar conc 4.3 mmol/L Normal 3.5-5.1 [facility] Comment on above: Performed By: #### 8 [id number] ####[facility] [address] [place] [address] Sodium 140 mmol/L Normal 136-145 [facility] Comment on above: Performed By: #### 8 [id number] ####[facility] [address]erwvcqt[address] [place] [id number] CBC w/ Auto Diffon 8 Erythrocyte distribution width Auto Ratio (RBC) 13.3 % Normal 11.5-14.5 [facility] Comment on above: Performed By: #### 8 [id number] ####[facility] Cmfvzgjbkh3171 [place] 9571405 Erythrocytes (RBC) 3.96 E6/mcL Normal 3.90-5.40 [facility] Comment on above: Performed By: #### 8 [id number] ####[facility] [address]zahqij9666 [place] [address] Hematocrit (HCT) 38.8 % Normal 36.0-48.0 [facility] Comment on above: Performed By: #### 8 [id number] ####[facility] [address]xe[address]os[address] [place] [address] Hemoglobin mass conc (Bld) 13.2 g/dL Normal 12.0-16.0 [facility] Comment on above: Performed By: #### 8 [id number] ####[facility] [address]ks[address] [place] [address] MCH 33.3 pg High 27.0-31.0 [facility] Comment on above: Performed By: #### 8 [id number] ####[facility] [address]ws[address] [place] [address] MCHC mass conc (RBC) 34.0 g/dL Normal 33.0-37.0 [facility] Comment on above: Performed By: #### 8 [id number] ####[facility] [address] [place] [address] MCV 97.8 fL Normal 78.0-100.0 [facility] Comment on above: Performed By: #### 8 [id number] ####[facility] [address] [place] [address] Platelet mean volume (PMV) 6.7 fL Low 7.4-11.0 [facility] Comment on above: Performed By: #### 8 [id number] ####[facility] [address] [place] [address] Platelets 267 E3/mcL Normal 130-400 [facility] Comment on above: Performed By: #### 8 [id number] ####[facility] [address] [place], [place] [address] WBC (Leukocytes) 5.7 E3/mcL Normal 3.6-11.0 [facility] Comment on above: Performed By: #### 8 [id number] ####[facility] [address]qchz[address] [place] [address] Hep Func Panelon 10-10-2017 Alanine aminotransferase (ALT) 125 Int._Unit/L High 10-40 [facility] Comment on above: Performed By: #### 8 [id number] ####[facility] [address] [place] [address] Albumin 3.6 g/dL Normal 3.2-5.0 [facility] Comment on above: Performed By: #### 8 [id number] ####[facility] [address] [place] [address] Albumin/Globulin Ratio 1.4 {ratio} Normal 1.1-1.9 [facility] Comment on above: Performed By: #### 8 [id number] ####[facility] [address]sofby[address] [place] [address] Alk Phos 97 Int._Unit/L Normal 42-121 [facility] Comment on above: Performed By: #### 8 [id number] ####[facility] [address] [place] [address] Aspartate aminotransferase (AST) 61 Int._Unit/L High 10-42 [facility] Comment on above: Performed By: #### 8 [id number] ####[facility] [address]ef[address] [place] [address] Bili Direct <.10 Normal .00-.20 [facility] Comment on above: Performed By: #### 8 [id number] ####[facility] [address] [place] [address] Bili Indirect >0.2 Normal [facility] Comment on above: Result Comment: No e stablished ranges available for the Indirect Biliruben. Performed By: #### 8 [id number] ####[facility] [address]xs[address] [place] [address] Bili Total 0.3 mg/dL Normal 0.2-1.0 [facility] Comment on above: Performed By: #### 8 [id number] ####[facility] [address] [place] [address] Globulin 2.6 g/dL Normal 2.0-4.0 [facility] Comment on above: Performed By: #### 8 [id number] ####[facility] Qpnpoyngky7855 [place] [address] Protein 6.2 g/dL Low 6.4-8.3 [facility] Comment on above: Performed By: #### 8 [id number] ####[facility] [address]frmg6865 [place] [address] Lipase Levelon 10-10-2017 Lipase Lvl 20 U/L Normal 8-57 [facility] Comment on above: Performed By: #### 2 [id number] ####[facility] X[address]wiwcaqn8756 [place] [address] PTon 10-10-2017 INR Coag RelTime (PPP) 4.2 {INR} Critically abnormal 1.0-1.2 [facility] Comment on above: Result Comment: Crit ical Result INR:4.2 Called to JOHNATHAN KABA at: 05:49:38 by:SANTOS Read back by:JOHNATHAN TYSON Recommended Therapeuptic Ranges: Prophylaxis/treatment of DVT and PE?2.0-3.0 Prevention of systemic embolism?.2.0-3.0 Mechanical prosthetic values?2.5-3.5 CRITICAL VALUES?.>4.0 Performed By: #### 8 [id number] ####[facility] [address]wrl4[address] [place] [address]571405 Prothrombin time (PT) Coag time (PPP) 37.6 second(s) High 11.6-14.6 [facility] Comment on above: Result Comment: Crit ical Result PT:37.6 Called to JOHNATHAN KABA at: 05:49:38 by:SANTOS Read back by:JOHNATHAN KABA Performed By: #### 8 [id number] ####[facility] [address]xf[address] [place] [address]5714[address] UA Completeon 10-10-2017 UA Blood 1+ Abnormal Negative [facility] Comment on above: Performed By: #### 2 [id number] ####[facility] [address]vee[address] [place] [address] UA Bacteria Trace Abnormal None [facility] Comment on above: Performed By: #### 2 [id number] ####[facility] [address]tv[address]jhg3779 [place] [address] UA Clarity Clear Normal Clear [facility] Comment on above: Performed By: #### 2 [id number] ####[facility] [address]k6[address] [place] [address] UA Leuk Est Negative Normal Negative [facility] Comment on above: Performed By: #### 2 [id number] ####[facility] [address]wkpct3972 [place] [address] UA Mucous Trace Abnormal Trace [facility] Comment on above: Performed By: #### 2 [id number] ####[facility] Wwzc[address]mozb4761 [place] [address] UA Nitrite Negative Normal Negative [facility] Comment on above: Performed By: #### 2 [id number] ####[facility] [address]rsioqmln2696 [place] [address] UA pH 6.0 Normal 4.6-8.0 [facility] Comment on above: Performed By: #### 2 537702 ####[facility] Gljqpuacvp8308 [place] [address] UA Protein Negative Normal Negative [facility] Comment on above: Performed By: #### 2 [id number] ####[facility] [address]dt[address]wpbmr5946 [place] [address] UA Spec Grav 1.014 Normal 1.003-1.030 [facility] Comment on above: Performed By: #### 2 [id number] ####[facility] [address]f57[address] [place] [address] UA Squam Epithelial 0-5 Normal 0-5 [facility] Comment on above: Performed By: #### 2 [id number] ####[facility] [address]hh[address]40 [place] [address] UA Urobilinogen Negative Normal [facility] Comment on above: Performed By: #### 2 [id number] ####[facility] Tvfxdbyujl[address] [place] [address] UA WBC 0-5 Normal 0-5 [facility] Comment on above: Performed By: #### 2 [id number] ####[facility] [address] [place] [address] Urine, color Yellow Normal Yellow [facility] Comment on above: Performed By: #### 2 [id number] ####[facility] [place] [address] Urine, erythrocytes 3-5 Abnormal 0-3 [facility] Comment on above: Performed By: #### 2 [id number] ####[facility] [address] [place] [address] Urine, glucose Negative Normal Negative [facility] Comment on above: Performed By: #### 2 [id number] ####[facility] [place] [address] Urine, ketones presence Negative Normal Negative [facility] Comment on above: Performed By: #### 2 [id number] ####[facility] [address] [place] [address] Urine, urobilinogen Negative Normal Negative [facility] Comment on above: Performed By: #### 2 [id number] ####[facility] [address] eGFRon 10-10-2017 eGFR (non-black) mL/min/{1.73_m2} Normal [facility] Comment on above: Order Comment: Order added by Discern Expert. Performed By: #### 8 [id number] ####[facility] Urinalysis [facility] [address] [place] [address] Auto Diffon 08-11-2017 Basophils Auto #/vol (Bld) 0.1 E3/mcL Normal 0.0-0.2 [facility] Comment on above: Order Comment: Order Added by Discern Expert. Performed By: #### 2 [id number] ####[facility] NxtZbpy8783 [place] [address] Basophils/100 WBC Auto (Bld) 1.3 % Normal 0.0-2.0 [facility] Comment on above: Order Comment: Order Added by Discern Expert. Performed By: #### 2 [id number] ####[facility] SeqXlrm6810 [place] [address] Eos Absolute 0.2 E3/mcL Normal 0.0-0.7 [facility] Comment on above: Order Comment: Order Added by Discern Expert. Performed By: #### 2 [id number] ####[facility] CheathamSiwTjhf4438 [place] [address] Eosinophils/100 leukocytes 3.1 % Normal 0.0-11.0 [facility] Comment on above: Order Comment: Order Added by Discern Expert. Performed By: #### 2 [id number] ####[facility] RqyEzvd6837 [place] [address] Lymphocytes 2.0 E3/mcL Normal 1.2-3.4 [facility] Comment on above: Order Comment: Order Added by Discern Expert. Performed By: #### 2 [id number] ####[facility] CheathamAuiIfxv8331 [place] [address] Lymphocytes/100 leukocytes 40.1 % Normal 20.0-55.0 [facility] Comment on above: Order Comment: Order Added by Discern Expert. Performed By: #### 2 375210 ####[facility] LeaRuaz8329 [place] [address] [place] Absolute 0.5 E3/mcL Normal 0.0-0.7 [facility] Comment on above: Order Comment: Order Added by Discern Expert. Performed By: #### 2 762140 ####[facility] YiwIbtr3608 [place] [address] Monocytes/100 leukocytes 9.9 % Normal 0.0-10.0 [facility] Comment on above: Order Comment: Order Added by Discern Expert. Performed By: #### 2 939774 ####[facility] GseXyac0528 [place] [address] Neutro Absolute 2.3 E3/mcL Normal 1.4-6.5 [facility] Comment on above: Order Comment: Order Added by Discern Expert. Performed By: #### 2 [id number] ####[facility] CheathamLcjFhqw3412 [place] [address] Neutro Auto 45.6 % Normal 37.0-75.0 [facility] Comment on above: Order Comment: Order Added by Discern Expert. Performed By: #### 2 [id number] ####[facility] DwiIyya9246 [place] [address] BMPon 08-11-2017 BUN/Creatinine Ratio 21.4 ratio Normal 5.4-30.0 [facility] Comment on above: Performed By: #### 2 071955 ####[facility] RoyTaih1530 [place] [address] Creatinine 0.7 mg/dL Normal 0.6-1.3 [facility] Comment on above: Performed By: #### 2 554828 ####[facility] HppZjgs5008 [place] [address] Urea nitrogen 15 mg/dL Normal 7-18 [facility] Comment on above: Performed By: #### 2 [id number] ####[facility] IggWrdx2111 [place] [address] Calcium 9.2 mg/dL Normal 8.4-10.2 [facility] Comment on above: Performed By: #### 2 205105 ####[facility] LrsXctw4648 [place] [address] Chloride 100 mmol/L Normal 98-107 [facility] Comment on above: Performed By: #### 2 948170 ####[facility] AykLscc9929 [place] [address] CO2 23.3 mmol/L Low 24.0-30.0 [facility] Comment on above: Performed By: #### 2 268061 ####[facility] RtiHjhm8988 [place] [address] Glucose mass conc 107 mg/dL High 70-99 [facility] Comment on above: Performed By: #### 2 662921 ####[facility] VbiMonx9826 [place] [address] Potassium molar conc 2.9 mmol/L Low 3.5-5.1 [facility] Comment on above: Performed By: #### 2 316290 ####[facility] RwyXuxg6350 [place] [address] Sodium 136 mmol/L Normal 136-145 [facility] Comment on above: Performed By: #### 2 620501 ####[facility] CheathamJgrGkhh1620 [place] [address] CBC w/ Auto Diffon Erythrocyte distribution width Auto Ratio (RBC) 12.5 % Normal 11.5-14.5 [facility] Comment on above: Performed By: #### 2 731933 ####[facility] CheathamTkgOmmq8010 [place] [address] Erythrocytes (RBC) 4.42 E6/mcL Normal 3.90-5.40 [facility] Comment on above: Performed By: #### 2 735571 ####[facility] CheathamRwoCota7274 [place] [address] Hematocrit (HCT) 42.2 % Normal 36.0-48.0 [facility] Comment on above: Performed By: #### 2 343460 ####[facility] CheathamXyyRgpo1461 [place] [address] Hemoglobin mass conc (Bld) 14.9 g/dL Normal 12.0-16.0 [facility] Comment on above: Performed By: #### 2 065397 ####[facility] CheathamNopWieg2654 [place] [address] MCH 33.6 pg High 27.0-31.0 [facility] Comment on above: Performed By: #### 2 614386 ####[facility] CheathamUcgYgqx1556 [place] [address] MCHC mass conc (RBC) 35.2 g/dL Normal 33.0-37.0 [facility] Comment on above: Performed By: #### 2 860977 ####[facility] CheathamEpwPivs3025 [place] [address] MCV 95.7 fL Normal 78.0-100.0 [facility] Comment on above: Performed By: #### 2 499514 ####[facility] CheathamQwaVlbl4855 [place] [address] Platelet mean volume (PMV) 6.8 fL Low 7.4-11.0 [facility] Comment on above: Performed By: #### 2 402567 ####[facility] CheathamLvtYaay1042 [place] [address] Platelets 281 E3/mcL Normal 130-400 [facility] Comment on above: Performed By: #### 2 682940 ####[facility] CheathamXenKwki3547 [place] [address] WBC (Leukocytes) 5.1 E3/mcL Normal 3.6-11.0 [facility] Comment on above: Performed By: #### 2 911657 ####[facility] LdjHafl5133 [place] [address] CT Abdomen/Pelvis w/ Contras ton 08-11-2017 CT Abdomen/Pelvis w/ Contrast Exam Date/Time:08/11/2017 11:22 ESTReason for Exam:Nausea with vomitingReportCT ABDOMEN/PELVIS W/ CONTRASTCLINICAL STATEMENT: Nausea with vomiting.COMPARISON: None.TECHNIQUE: CT examination of the abdomen and pelvis following theadministration of 100 mL Omnipaque 300 intravenous contrast. ?Coronal andsagittal reformations were performed.Dose reduction techniques were achieved by using automated exposure controland/or adjustment of mA and/or kV according to patient size and/or use ofiterative reconstruction technique.FINDINGS:CT ABDOMEN: There is dependent atelectasis at the lung bases. No pleuraleffusions. The heart size is at the upper limits of normal.Status post cholecystectomy associated with mild intra- and extrahepaticbiliary duct dilatation. The pancreas appears mildly atrophic. The spleen andadrenal glands have an unremarkable noncontrast appearance. Mildly prominentextrarenal pelves without hydroureter. No retroperitoneal adenopathy. Note madeof an IVC filter in place.CT PELVIS: The bladder is well-distended without an intrinsic abnormality. Theuterus is not visualized. There is a large amount of stool throughout the colonand no dilated loops of small bowel. The appendix is not visualized. Theosseous structures are unremarkable.IMPRESSION :1. No acute intra-abdominal or pelvic finding.2. Borderline cardiomegaly.3. Status post cholecystectomy, appendectomy and hysterectomy with an IVCExam Date/Time:08/11/2017 11:[address] FINAL REPORT Dictated: 08/11/2017 11:46 am Yoan VASQUEZ, Manish Giordano (Electronic Signature): 08/11/2017 11:46 amSigned by: Yoan VASQUEZ, Manish Purdy Technologist: MLL Normal [facility] Hep Func Panelon 08-11-2017 Alanine aminotransferase (ALT) 291 Int._Unit/L High 10-40 [facility] Comment on above: Performed By: #### 8 [id number] ####[facility] Mykflqslmp3111 [place] [address] Albumin 4.9 g/dL Normal 3.2-5.0 [facility] Comment on above: Performed By: #### 8 [id number] ####[facility] Abxhhbgcqr8666 [place] [address] Albumin/Globulin Ratio 1.6 {ratio} Normal 1.1-1.9 [facility] Comment on above: Performed By: #### 8 [id number] ####[facility] [address]rx[address] [place] [address] Alk Phos 123 Int._Unit/L High 42-121 [facility] Comment on above: Performed By: #### 8 [id number] ####[facility] [address] [place], [place] [address] Aspartate aminotransferase (AST) 222 Int._Unit/L High 10-42 [facility] Comment on above: Performed By: #### 8 [id number] ####[facility] [address]pigdzzt[address] [place] [address] Bili Direct <.10 Normal .00-.20 [facility] Comment on above: Performed By: #### 8 [id number] ####[facility] [address]co[address]ixq[address] [place] [address] Bili Indirect >0.5 Normal [facility] Comment on above: Result Comment: No e stablished ranges available for the Indirect Biliruben. Performed By: #### 8 [id number] ####[facility] [address]ovragzcol[address] [place] [address] Bili Total 0.6 mg/dL Normal 0.2-1.0 [facility] Comment on above: Performed By: #### 8 [id number] ####[facility] Sagbjvgjwc7810 [place] [address] Globulin 3.0 g/dL Normal 2.0-4.0 [facility] Comment on above: Performed By: #### 8 [id number] ####[facility] Fypdgznhnc1697 [place] [address] Protein 7.9 g/dL Normal 6.4-8.3 [facility] Comment on above: Performed By: #### 8 [id number] ####[facility] Fdqzwajfgc2590 [place] [address] Lactic Acidon 08-11-2017 Lactic Acid Lvl 1.1 mmol/L Normal 0.5-2.2 [facility] Comment on above: Performed By: #### 2 504958 ####[facility] SuhGywb4495 [place] [address] Lipase Levelon 08-11-2017 Lipase Lvl 18 U/L Normal 8-57 [facility] Comment on above: Performed By: #### 8 [id number] ####[facility] [address] [place], [place] [address] PTon 08-11-2017 INR Coag RelTime (PPP) 2.8 {INR} High 1.0-1.2 [facility] Comment on above: Result Comment: INR Recommended Therapeuptic Ranges: Prophylaxis/treatment of DVT and PE?2.0-3.0 Prevention of systemic embolism?.2.0-3.0 Mechanical prosthetic values?2.5-3.5 CRITICAL VALUES?.>4.0 Performed By: #### 2 211472 ####[facility] Tyhfoztemy4810 [place] [address] Prothrombin time (PT) Coag time (PPP) 27.8 second(s) High 11.6-14.6 [facility] Comment on above: Performed By: #### 2 342318 ####[facility] Pfjicrzopt3801 [place] [address] PTTon 08-11-2017 aPTT 34.7 second(s) Normal 23.2-36.4 [facility] Comment on above: Performed By: #### 2 269712 ####[facility] Gapvebpary8064 [place] [address] PTT Control Ratioon 08-11-20 17 PTT Ratio 1.2 ratio Normal 0.8-1.2 [facility] Comment on above: Order Comment: Order added by Discern Expert. Performed By: #### 8 [id number] ####[facility] Dganjlzedm5487 [place] [address] U Drug Screenon 08-11-2017 U Amph Scr Negative Normal [facility] Comment on above: Result Comment: Resu lts for medical use only. Confirmation of positive results will be done when requested. Specimens are kept for one week. Performed By: #### 2 [id number] ####[facility] HzxZbzg1947 [place] [address] U Angy Scr Negative Normal [facility] Comment on above: Performed By: #### 2 241956 ####[facility] IbkHmpu6473 [place] [address] U Benzodia Scr Negative Normal [facility] Comment on above: Performed By: #### 2 547391 ####[facility] RlhBmxr9496 [place] [address] U Cannab Scr Negative Normal [facility] Comment on above: Performed By: #### 2 415710 ####BELKISAbigail CheathamVrcLrdq5405 [place] [address] U Cocaine Scr Negative Normal [facility] Comment on above: Performed By: #### 2 447194 ####[facility] CkiNikr5635 [place] [address] U Opiate Scr Negative Normal [facility] Comment on above: Performed By: #### 2 548054 ####[facility] GtqSbyq7892 [place] [address] U PCP Scr Negative Normal [facility] Comment on above: Performed By: #### 2 [id number] ####[facility] TjhFwsc7852 [place] [address] UA Completeon 08-11-2017 UA Blood 1+ Abnormal Negative [facility] Comment on above: Performed By: #### 8 [id number] ####[facility] Hgcarbfgrc5357 [place] [address] UA Clarity Clear Normal Clear [facility] Comment on above: Performed By: #### 8 [id number] ####[facility]inalysis [facility] [address]ocagob2307 [place] [address] UA Hyal Cast 0-2 Normal 0-2 [facility] Comment on above: Performed By: #### 8 [id number] ####[facility] Yudxofzoff4389 [place] [address] UA Leuk Est Negative Normal Negative [facility] Comment on above: Performed By: #### 8 [id number] ####[facility] Urinalysis [facility]ated [address]zl[address] [place] [address] UA Mucous Trace Abnormal Trace [facility] Comment on above: Performed By: #### 8 [id number] ####[facility] Urinalysis [facility]ated [address]juoz[address] [place] [address] UA Nitrite Negative Normal Negative [facility] Comment on above: Performed By: #### 8 [id number] ####[facility] Urinalysis Automated [address]by[address]jta[address] [place] [address] UA pH 5.0 Normal 4.6-8.0 [facility] Comment on above: Performed By: #### 8 [id number] ####[facility] Urinalysis [facility]ated [address]piz[address]rbrb[address] [place] [address] UA Protein Negative Normal Negative [facility] Comment on above: Performed By: #### 8 [id number] ####[facility] Urinalysis [facility]ated [address]xyxxz[address] [place], [place] [address] UA Spec Grav 1.003 Normal 1.003-1.030 [facility] Comment on above: Performed By: #### 8 [id number] ####[facility] Urinalysis Automated [address] [place] [address] UA Squam Epithelial 0-5 Normal 0-5 [facility] Comment on above: Performed By: #### 8 [id number] ####[facility] Urinalysis Automated [address]igvapthc[address] [place], [place] [address] UA Urobilinogen Negative Normal [facility] Comment on above: Performed By: #### 8 [id number] ####[facility] Urinalysis Automated Ceqmuvdser1050 [place] [address] UA WBC 0-5 Normal 0-5 [facility] Comment on above: Performed By: #### 8 [id number] ####[facility] Urinalysis Automated Obhrwnvesb9065 [place] [address] Urine, color Colorless Normal Yellow [facility] Comment on above: Performed By: #### 8 [id number] ####[facility] Urinalysis Automated R[address]yqkmpoe0662 [place] [address] Urine, erythrocytes 0-3 Normal 0-3 [facility] Comment on above: Performed By: #### 8 [id number] ####[facility] Urinalysis [facility]ated Ldfkhdetfm3721 [place] [address] Urine, glucose Negative Normal Negative [facility] Comment on above: Performed By: #### 8 [id number] ####[facility] Urinalysis Automated Oaolirvtba2346 [place] [address] Urine, ketones presence Negative Normal Negative [facility] Comment on above: Performed By: #### 8 [id number] ####[facility] Urinalysis [facility] Kziphjkulj7577 [place] [address] Urine, urobilinogen Negative Normal Negative [facility] Comment on above: Performed By: #### 8 [id number] ####[facility] Urinalysis [facility]ated Itvwxytble1844 [place] [address] eGFRon 08-11-2017 eGFR (non-black) mL/min/{1.73_m2} Normal [facility] Comment on above: Order Comment: Order added by Discern Expert. Performed By: #### 8 [id number] ####[facility] Urinalysis Automated Bsjfcidfpk8260 [place] [address] XR Wrist 3+ Views Lefton XR Wrist 3+ Views Left Exam Date/Time:06/14/2017 15:20 EDTReason for Exam:Pain, TraumaticReportLEFT WRIST5 ViewsHISTORY: Injury.FINDINGS: No fracture is seen. The carpals are intact. The intercarpal distanceis within normal limitsIMPRESSION:No fracture or dislocation. FINAL REPORT Dictated: 06/14/2017 4:00 pm Sree Ware MD KSigned (Electronic Signature): 06/14/2017 4:00 pmSigned by: Sree Ware MD Technologist: [facility] Vital Signs Date Time Vital Sign Value Performing Clinician Facility 06-08-2024 14:18-0400 Body mass index (BMI) [Ratio] 41.98 kg/m2 Laury Dominga EMERGENCY PLANNING AND RESPONSE MANAGER.INVESTOR RELATIONS DIRECTOR Work Phone: [facility] 06-08-2024 14:18-0400 Body weight 107.5 kg Laury [place] EMERGENCY PLANNING AND RESPONSE MANAGER.INVESTOR RELATIONS DIRECTOR Work Phone: [facility] 06-08-2024 14:18-0400 Diastolic blood pressure 78 mm[Hg] Laury [place] EMERGENCY PLANNING AND RESPONSE MANAGER.INVESTOR RELATIONS DIRECTOR Work Phone: [facility] 06-08-2024 14:18-0400 Systolic blood pressure 134 mm[Hg] Laury Dominga EMERGENCY PLANNING AND RESPONSE MANAGER.INVESTOR RELATIONS DIRECTOR Work Phone: [facility] 05-31-2024 14:57-0400 Body mass index (BMI) [Ratio] 40.92 kg/m2 Lynn Maier MD Work Phone: [facility] 05-31-2024 14:57-0400 Body weight 104.78 kg Lynn Maier MD Work Phone: [facility] 05-31-2024 14:57-0400 Diastolic blood pressure 82 mm[Hg] Lynn Maier MD Work Phone: [facility] 05-31-2024 14:57-0400 Systolic blood pressure 124 mm[Hg] Lynn Maier MD Work Phone: [facility] 03-05-2024 18:30-0400 Diastolic blood pressure 97 mm[Hg] Colton Hicks MD Work Phone: [facility] 03-05-2024 18:30-0400 Heart rate 95 /min Colton Hicks MD Work Phone: [facility] 03-05-2024 18:30-0400 Respiratory rate 17 /min Colton Hicks MD Work Phone: [facility] 03-05-2024 18:30-0400 SaO2% (BldA) [Mass fraction] 97 % Colton Hicks MD Work Phone: [facility] 03-05-2024 18:30-0400 Systolic blood pressure 129 mm[Hg] Colton Hicks MD Work Phone: [facility] 03-05-2024 17:26-0400 Body height 162.6 cm Colton Hicks MD Work Phone: [facility] 03-05-2024 17:26-0400 Body mass index (BMI) [Ratio] 38.28 kg/m2 Colton Hicks MD Work Phone: [facility] 03-05-2024 17:26-0400 Body temperature 98.6 [degF] Colton Hicks MD Work Phone: [facility] 03-05-2024 17:26-0400 Body weight 101.15 kg Colton Hicks MD Work Phone: [facility] 03-02-2024 15:37-0400 Body temperature 97.3 [degF] Mike Land MD Work Phone: [facility] 03-02-2024 15:37-0400 Diastolic blood pressure 69 mm[Hg] Mike Land MD Work Phone: [facility] 03-02-2024 15:37-0400 Heart rate 95 /min Mike Land MD Work Phone: [facility] 03-02-2024 15:37-0400 Respiratory rate 14 /min Mike Land MD Work Phone: [facility] 03-02-2024 15:37-0400 SaO2% (BldA) [Mass fraction] 94 % Mike Land MD Work Phone: [facility] 03-02-2024 15:37-0400 Systolic blood pressure 104 mm[Hg] Mike Land MD Work Phone: [facility] 02-28-2024 03:53-0400 Body height 162.6 cm Mike Land MD Work Phone: [facility] 02-28-2024 03:53-0400 Body mass index (BMI) [Ratio] 40.19 kg/m2 Mike Land MD Work Phone: [facility] 02-28-2024 03:53-0400 Body weight 106.2 kg Mike Land MD Work Phone: [facility] 12-08-2023 13:08-0400 Body temperature 96.69 [degF] Nancy Agrawal MD Work Phone: [facility] 12-08-2023 13:08-0400 Diastolic blood pressure 80 mm[Hg] Nancy Agrawal MD Work Phone: [facility] 12-08-2023 13:08-0400 Heart rate 97 /min Nancy Agrawal MD Work Phone: [facility] 12-08-2023 13:08-0400 Respiratory rate 14 /min Nancy Agrawal MD Work Phone: [facility] 12-08-2023 13:08-0400 SaO2% (BldA) [Mass fraction] 96 % Nancy Agrawal MD Work Phone: [facility] 12-08-2023 13:08-0400 Systolic blood pressure 139 mm[Hg] Nancy Agrawal MD Work Phone: [facility] 12-05-2023 15:03-0400 Body height 160 cm Nancy Agrawal MD Work Phone: [facility] 12-05-2023 15:03-0400 Body mass index (BMI) [Ratio] 40.75 kg/m2 Nancy Agrawal MD Work Phone: [facility] 12-05-2023 15:03-0400 Body weight 104.33 kg Nancy Agrawal MD Work Phone: [facility] 12-05-2023 07:24-0400 Body height 160 cm Uvaldo Chavez MD Work Phone: [facility] 12-05-2023 07:24-0400 Body mass index (BMI) [Ratio] 40.74 kg/m2 Uvaldo Chavez MD Work Phone: [facility] 12-05-2023 07:24-0400 Body temperature 97 [degF] Uvaldo Chavez MD Work Phone: [facility] 12-05-2023 07:24-0400 Body weight 104.33 kg Uvaldo Chavez MD Work Phone: [facility] 12-05-2023 07:24-0400 Diastolic blood pressure 84 mm[Hg] Uvaldo Chavez MD Work Phone: [facility] 12-05-2023 07:24-0400 Heart rate 86 /min Uvaldo Chavez MD Work Phone: [facility] 12-05-2023 07:24-0400 Respiratory rate 20 /min Uvaldo Chavez MD Work Phone: [facility] 12-05-2023 07:24-0400 SaO2% (BldA) [Mass fraction] 96 % Uvaldo Chavez MD Work Phone: [facility] 12-05-2023 07:24-0400 Systolic blood pressure 126 mm[Hg] Uvaldo Chavez MD Work Phone: [facility] 11-15-2023 12:21-0500 Body temperature 98.1 [degF] Chi Galvin MD Work Phone: [facility] 11-15-2023 12:21-0500 Diastolic blood pressure 72 mm[Hg] Chi Galvin MD Work Phone: [facility] 11-15-2023 12:21-0500 Heart rate 99 /min Chi Galvin MD Work Phone: [facility] 11-15-2023 12:21-0500 Respiratory rate 16 /min Chi Galvin MD Work Phone: [facility] 11-15-2023 12:21-0500 SaO2% (BldA) [Mass fraction] 94 % hCi Galvin MD Work Phone: [facility] 11-15-2023 12:21-0500 Systolic blood pressure 106 mm[Hg] Chi Galvin MD Work Phone: [facility] 11-15-2023 05:54-0500 Body mass index (BMI) [Ratio] 41.4 kg/m2 Chi Galvin MD Work Phone: [facility] 11-15-2023 05:54-0500 Body weight 106 kg Chi Galvin MD Work Phone: [facility] 11-10-2023 19:02-0500 Body height 160 cm Chi Galvin MD Work Phone: [facility] 11-10-2023 16:52-0500 Body temperature 37.0 Chi Galvin MD Work Phone: [facility] Comment on above: NOTE: Patient Results are Not Corrected for Temperature 11-10-2023 16:49-0500 Body temperature 37.0 degrees Celsius COLTON KURT [facility] Comment on above: Result Comment: NOTE: Patient Results ar e Not Corrected for Temperature Performed By: #### 2 [id number] ####ANDI Cotter ([id number])[facility] ([facility])[address] [place] [address] 10-27-2023 10:45-0500 Body height 160 cm Tianna Rasmussen MD Work Phone: [facility] 10-27-2023 10:45-0500 Body mass index (BMI) [Ratio] 40.74 kg/m2 Tianna Rasmussen MD Work Phone: [facility] 10-27-2023 10:45-0500 Body temperature 96.4 [degF] Tianna Rasmussen MD Work Phone: [facility] 10-27-2023 10:45-0500 Body weight 104.33 kg Tianna Rasmussen MD Work Phone: [facility] 10-27-2023 10:45-0500 Diastolic blood pressure 83 mm[Hg] Tianna Rasmussen MD Work Phone: [facility] 10-27-2023 10:45-0500 Heart rate 97 /min Tianna Rasmussen MD Work Phone: [facility] 10-27-2023 10:45-0500 Respiratory rate 20 /min Tianna Rsamussen MD Work Phone: [facility] 10-27-2023 10:45-0500 SaO2% (BldA) [Mass fraction] 96 % Tianna Rasmussen MD Work Phone: [facility] 10-27-2023 10:45-0500 Systolic blood pressure 116 mm[Hg] Tianna Rasmussen MD Work Phone: [facility] 10-18-2023 11:00-0500 Diastolic blood pressure 72 mm[Hg] [address] 10-18-2023 11:00-0500 Heart rate 87 /min [address] 10-18-2023 11:00-0500 Respiratory rate 18 /min [address] 10-18-2023 11:00-0500 SaO2% (BldA) [Mass fraction] 98 % [address] 10-18-2023 11:00-0500 Systolic blood pressure 113 mm[Hg] [address] 10-18-2023 08:10-0500 Body temperature 96.8 [degF] [address] 10-17-2023 18:36-0500 Diastolic Blood Pressure Non-Invasive 82 mm[Hg] ADINA WHITT MD [facility] 10-17-2023 18:36-0500 Heart rate 85 /min ADINA WHITT MD [facility] 10-17-2023 18:36-0500 Respiratory rate 16 /min ADINA WHITT MD [facility] 10-17-2023 18:36-0500 Systolic Blood Pressure Non-Invasive 124 mm[Hg] ADINA WHITT MD [facility] 10-17-2023 15:51-0500 Blood Pressure Location ADINA WHITT MD [facility] 10-17-2023 15:51-0500 Body height 160 cm ADINA WHITT MD [facility] 10-17-2023 15:51-0500 Body temperature 97.34 [degF] ADINA WHITT MD [facility] 10-17-2023 15:51-0500 Body weight 104.5 kg ADINA WHITT MD [facility] 10-17-2023 15:51-0500 Diastolic Blood Pressure Non-Invasive 104 mm[Hg] ADINA WHITT MD [facility] 10-17-2023 15:51-0500 Heart rate 112 /min ADINA WHITT MD [facility] 10-17-2023 15:51-0500 Respiratory rate 18 /min ADINA WHITT MD [facility] 10-17-2023 15:51-0500 Systolic Blood Pressure Non-Invasive 149 mm[Hg] ADINA WHITT MD [facility] 08-26-2023 13:59-0500 Diastolic blood pressure 67 mm[Hg] [facility] 08-26-2023 13:59-0500 Heart rate 74 /min [facility] 08-26-2023 13:59-0500 Respiratory rate 15 /min [facility] 08-26-2023 13:59-0500 SaO2% (BldA) [Mass fraction] 98 % [facility] 08-26-2023 13:59-0500 Systolic blood pressure 110 mm[Hg] [facility] 08-26-2023 11:23-0500 Body temperature 96.4 [degF] [facility] 08-03-2023 08:17-0500 Body height 160 cm Colton Hicks MD Work Phone: [facility] 08-03-2023 08:17-0500 Body mass index (BMI) [Ratio] 39.01 kg/m2 Colton Hicks MD Work Phone: [facility] 08-03-2023 08:17-0500 Body temperature 97.3 [degF] Colton Hicks MD Work Phone: [facility] 08-03-2023 08:17-0500 Body weight 99.88 kg Colton Hicks MD Work Phone: [facility] 08-03-2023 08:17-0500 Diastolic blood pressure 73 mm[Hg] Colton Hicks MD Work Phone: [facility] 08-03-2023 08:17-0500 Heart rate 70 /min Colton Hicks MD Work Phone: [facility] 08-03-2023 08:17-0500 Respiratory rate 24 /min Colton Hicks MD Work Phone: [facility] 08-03-2023 08:17-0500 SaO2% (BldA) [Mass fraction] 98 % Colton Hicks MD Work Phone: [facility] 08-03-2023 08:17-0500 Systolic blood pressure 111 mm[Hg] Colton Hicks MD Work Phone: [facility] 06-18-2023 15:15-0400 Body temperature 97 [degF] Angela Miles MD Work Phone: [facility] 06-18-2023 15:15-0400 Diastolic blood pressure 104 mm[Hg] Angela Miles MD Work Phone: [facility] 06-18-2023 15:15-0400 Heart rate 81 /min Angela Miles MD Work Phone: [facility] 06-18-2023 15:15-0400 Respiratory rate 17 /min Angela Miles MD Work Phone: [facility] 06-18-2023 15:15-0400 SaO2% (BldA) [Mass fraction] 95 % Angela Miles MD Work Phone: [facility] 06-18-2023 15:15-0400 Systolic blood pressure 138 mm[Hg] Angela Miles MD Work Phone: [facility] 06-17-2023 02:23-0400 Body height 159.9 cm Angela Miles MD Work Phone: [facility] 06-17-2023 02:23-0400 Body mass index (BMI) [Ratio] 37.55 kg/m2 Angela Miles MD Work Phone: [facility] 06-17-2023 02:23-0400 Body weight 96 kg Angela Miles MD Work Phone: [facility] 06-03-2023 16:26-0400 Diastolic Blood Pressure Non-Invasive 78 1 YOANA WEAVER MD [facility] 06-03-2023 16:26-0400 Heart rate 75 /min YOANA WEAVER MD [facility] 06-03-2023 16:26-0400 Respiratory rate 16 /min YOANA WEAVER MD [facility] 06-03-2023 16:26-0400 Systolic Blood Pressure Non-Invasive 116 1 YOANA WEAVER MD [facility] 06-03-2023 14:52-0400 Body temperature 97.16 [degF] YOANA WEAVER MD [facility] 06-03-2023 14:52-0400 Body weight 97.7 kg YOANA WEAVER MD [facility] 06-03-2023 14:52-0400 Diastolic Blood Pressure Non-Invasive 80 1 YOANA WEAVER MD [facility] 06-03-2023 14:52-0400 Heart rate 93 /min YOANA WEAVER MD [facility] 06-03-2023 14:52-0400 Respiratory rate 16 /min YOANA WEAVER MD [facility] 06-03-2023 14:52-0400 Systolic Blood Pressure Non-Invasive 121 1 YOANA WEAVER MD [facility] 05-25-2023 09:31-0400 Body temperature 36.6 [degF] Cj Rivera Work Phone: [facility] Work Phone: 05-25-2023 09:31-0400 Diastolic blood pressure 89 mm[Hg] Cj Rivera Work Phone: [facility] Work Phone: 05-25-2023 09:31-0400 Heart rate 89 /min Cj Rivera Work Phone: [facility] Work Phone: 05-25-2023 09:31-0400 SaO2% (BldA) [Mass fraction] 96 % Cj Rivera Work Phone: [facility] Work Phone: 05-25-2023 09:31-0400 Systolic blood pressure 136 mm[Hg] Cj Rivera Work Phone: [facility] Work Phone: 05-25-2023 09:29-0400 Body height 160.02 cm Cj Rivera Work Phone: [facility] Work Phone: 05-25-2023 09:29-0400 Body mass index (BMI) [Ratio] 38.62 kg/m2 Cj Rivera Work Phone: [facility] Work Phone: 05-25-2023 09:29-0400 Body surface area Derived from formula 2.01 m2 Cj Rivera Work Phone: [facility] Work Phone: 05-25-2023 09:29-0400 Body weight 98.88 kg Cj Rivera Work Phone: [facility] Work Phone: 05-25-2023 09:29-0400 Respiratory rate 16 /min Cj Rivera Work Phone: [facility] Work Phone: 05-23-2023 04:42-0400 Diastolic Blood Pressure Non-Invasive [address] ALEXEY CHEEK DO [facility] 05-23-2023 04:42-0400 Heart rate 98 /min DR ALEXEY CHEEK DO [facility] 05-23-2023 04:42-0400 Respiratory rate 18 /min DR ALEXEY CHEEK DO [facility] 05-23-2023 04:42-0400 Systolic Blood Pressure Non-Invasive [address] ALEXEY CHEEK DO [facility] 05-23-2023 03:57-0400 Diastolic Blood Pressure Non-Invasive [address] ALEXEY CHEEK DO [facility] 05-23-2023 03:57-0400 Heart rate 105 /min DR ALEXEY CHEEK DO [facility] 05-23-2023 03:57-0400 Respiratory rate 16 /min DR ALEXEY CHEEK DO [facility] 05-23-2023 03:57-0400 Systolic Blood Pressure Non-Invasive [address] ALEXEY CHEEK DO [facility] 05-23-2023 02:41-0400 Body temperature 98.24 [degF] DR ALEXEY CHEEK DO [facility] 05-23-2023 02:41-0400 Diastolic Blood Pressure Non-Invasive [address] ALEXEY CHEEK DO [facility] 05-23-2023 02:41-0400 Heart rate 121 /min DR ALEXEY CHEEK DO [facility] 05-23-2023 02:41-0400 Respiratory rate 18 /min DR ALEXEY CHEEK DO [facility] 05-23-2023 02:41-0400 Systolic Blood Pressure Non-Invasive [address] ALEXEY CHEEK DO [facility] 05-19-2023 14:54-0400 Body temperature 98.78 [degF] LETHA CID MD [facility] 05-19-2023 14:54-0400 Diastolic Blood Pressure Non-Invasive 87 1 LETHA CID MD [facility] 05-19-2023 14:54-0400 Heart rate 108 /min LETHA CID MD [facility] 05-19-2023 14:54-0400 Respiratory rate 16 /min LETHA CID MD [facility] 05-19-2023 14:54-0400 Systolic Blood Pressure Non-Invasive 110 1 LETHA CID MD [facility] 05-16-2023 15:15-0400 Body temperature 96.8 [degF] Cj Rivera Other Phone: [facility] 05-16-2023 15:15-0400 Diastolic blood pressure 76 mm[Hg] Cj Rivera Other Phone: [facility] 05-16-2023 15:15-0400 Heart rate 97 /min Cj Rivera Other Phone: [facility] 05-16-2023 15:15-0400 Respiratory rate 18 /min Cj Rivera Other Phone: [facility] 05-16-2023 15:15-0400 SaO2% (BldA) [Mass fraction] 95 % Cj Rivera Other Phone: [facility] 05-16-2023 15:15-0400 Systolic blood pressure 107 mm[Hg] Cj Rivera Other Phone: [facility] 05-09-2023 10:36-0400 Diastolic Blood Pressure Non-Invasive 63 1 YOANA WEAVER MD [facility] 05-09-2023 10:36-0400 Heart rate 89 /min YOANA WEAVER MD [facility] 05-09-2023 10:36-0400 Respiratory rate 16 /min YOANA WEAVER MD [facility] 05-09-2023 10:36-0400 Systolic Blood Pressure Non-Invasive 104 1 YOANA WEAVER MD [facility] 05-09-2023 10:13-0400 Diastolic Blood Pressure Non-Invasive 60 1 YOANA WEAVER MD [facility] 05-09-2023 10:13-0400 Heart rate 86 /min YOANA WEAVER MD [facility] 05-09-2023 10:13-0400 Respiratory rate 16 /min YOANA WEAVER MD [facility] 05-09-2023 10:13-0400 Systolic Blood Pressure Non-Invasive 106 1 YOANA WEAVER MD [facility] 05-09-2023 08:07-0400 Body temperature 98.78 [degF] YOANA WEAVER MD [facility] 05-09-2023 08:07-0400 Body weight 96.5 kg YOANA WEAVER MD [facility] 05-09-2023 08:07-0400 Diastolic Blood Pressure Non-Invasive 68 1 YOANA WEAVER MD [facility] 05-09-2023 08:07-0400 Heart rate 93 /min YOANA WEAVER MD [facility] 05-09-2023 08:07-0400 Respiratory rate 16 /min YOANA WEAVER MD [facility] 05-09-2023 08:07-0400 Systolic Blood Pressure Non-Invasive 132 1 YOANA WEAVER MD [facility] 04-30-2023 00:40-0400 Body temperature 96.91 [degF] Lisbeth Samson DO Work Phone: [facility] 04-30-2023 00:40-0400 Diastolic blood pressure 85 mm[Hg] Lisbeth Samson DO Work Phone: [facility] 04-30-2023 00:40-0400 Heart rate 97 /min Lisbeth Samson DO Work Phone: [facility] 04-30-2023 00:40-0400 SaO2% (BldA) [Mass fraction] 94 % Lisbeth Samson DO Work Phone: [facility] 04-30-2023 00:40-0400 Systolic blood pressure 129 mm[Hg] Lisbeth Samson DO Work Phone: [facility] 04-30-2023 00:32-0400 Respiratory rate 15 /min Lisbeth Samson DO Work Phone: [facility] 04-29-2023 21:21-0400 Diastolic Blood Pressure Non-Invasive 68 1 MOLINA QUIROZ DO [facility] 04-29-2023 21:21-0400 Heart rate 92 /min MOLINA QUIROZ DO [facility] 04-29-2023 21:21-0400 Respiratory rate 18 /min MOLINA QUIROZ DO [facility] 04-29-2023 21:21-0400 Systolic Blood Pressure Non-Invasive 103 1 MOLINA DURESKA DO [facility] 04-29-2023 12:45-0400 Blood Pressure Cuff Size MOLINA QUIROZ DO [facility] 04-29-2023 12:45-0400 Blood Pressure Location MOLINA JIMKA DO [facility] 04-29-2023 12:45-0400 Blood Pressure Method MOLINA QUIROZ DO [facility] 04-29-2023 12:45-0400 Body temperature 98.78 [degF] MOLINA HERRERAESKA DO [facility] 04-29-2023 12:45-0400 Diastolic Blood Pressure Non-Invasive 98 1 MOLINA QUIROZ DO [facility] 04-29-2023 12:45-0400 Heart rate 102 /min MOLINA QUIROZ DO [facility] 04-29-2023 12:45-0400 Respiratory rate 18 /min MOLINA QUIROZ DO [facility] 04-29-2023 12:45-0400 Systolic Blood Pressure Non-Invasive 140 1 MOLINA QUIROZ DO [facility] 04-28-2023 09:52-0400 Body temperature 97.7 [degF] Cj Rivera Other Phone: [facility] 04-28-2023 09:52-0400 Diastolic blood pressure 79 mm[Hg] Cj Rivera Other Phone: [facility] 04-28-2023 09:52-0400 Heart rate 93 /min Cj Rivera Other Phone: [facility] 04-28-2023 09:52-0400 Respiratory rate 17 /min Cj Rivera Other Phone: [facility] 04-28-2023 09:52-0400 SaO2% (BldA) [Mass fraction] 96 % Cj Rivera Other Phone: [facility] 04-28-2023 09:52-0400 Systolic blood pressure 119 mm[Hg] Cj Rivera Other Phone: [facility] 04-25-2023 16:40-0400 Diastolic Blood Pressure Non-Invasive 74 1 WIN ALLRED MD [facility] 04-25-2023 16:40-0400 Heart rate 76 /min WIN ALLRED MD [facility] 04-25-2023 16:40-0400 Respiratory rate 16 /min WIN ALLRED MD [facility] 04-25-2023 16:40-0400 Systolic Blood Pressure Non-Invasive 136 1 WIN ALLRED MD [facility] 04-25-2023 12:00-0400 Body temperature 98.6 [degF] WIN ALLRED MD [facility] 04-25-2023 12:00-0400 Diastolic Blood Pressure Non-Invasive 69 1 WIN ALLRED MD [facility] 04-25-2023 12:00-0400 Heart rate 77 /min WIN ALLRED MD [facility] 04-25-2023 12:00-0400 Systolic Blood Pressure Non-Invasive 118 1 WIN ALLRED MD [facility] 04-25-2023 06:35-0400 Diastolic Blood Pressure Non-Invasive 91 1 WIN ALLRED MD [facility] 04-25-2023 06:35-0400 Heart rate 74 /min WIN ALLRED MD [facility] 04-25-2023 06:35-0400 Respiratory rate 18 /min WIN ALLRED MD [facility] 04-25-2023 06:35-0400 Systolic Blood Pressure Non-Invasive 126 1 IWN ALLRED MD [facility] 04-25-2023 03:27-0400 Reason For Taking VItal Signs WIN ALLRED MD [facility] 04-25-2023 01:38-0400 Reason For Taking VItal Signs WIN ALLRED MD [facility] 04-25-2023 00:24-0400 Body temperature 99.14 [degF] WIN ALLRED MD [facility] 04-25-2023 00:24-0400 Body weight 96.4 kg WIN ALLRED MD [facility] 04-02-2023 22:58-0400 Body temperature 99.14 [degF] MOLINA VALLE MD FACP [facility] 04-02-2023 22:58-0400 Diastolic Blood Pressure Non-Invasive 81 1 MOLINA VALLE MD FACP [facility] 04-02-2023 22:58-0400 Heart rate 84 /min MOLINA VALLE MD FACP [facility] 04-02-2023 22:58-0400 Respiratory rate 19 /min MOLINA VALLE MD FACP [facility] 04-02-2023 22:58-0400 Systolic Blood Pressure Non-Invasive 147 1 MOLINA VALLE MD FACP [facility] 04-02-2023 19:56-0400 Heart rate 79 /min MOLINA VALLE MD FACP [address] [place] [address] 04-02-2023 19:56-0400 Respiratory rate 19 /min MOLINA VALLE MD FACP [address] 04-02-2023 14:21-0400 Body temperature 98.24 [degF] MOLINA VALLE MD FACP [address] [place] [address] 04-02-2023 14:21-0400 Diastolic Blood Pressure Non-Invasive 79 1 MOLINA VALLE MD FACP [address] [place] [address] 04-02-2023 14:21-0400 Heart rate 79 /min MOLINA VALLE MD FACP [address] [place] [address] 04-02-2023 14:21-0400 Respiratory rate 18 /min MOLINA VALLE MD FACP [address] [place] [address] 04-02-2023 14:21-0400 Systolic Blood Pressure Non-Invasive 119 1 MOLINA VALLE MD FACP [address] [place] [address] 04-02-2023 07:04-0400 Heart rate 70 /min MOLINA VALLE MD FACP [address] [place] [address] 04-02-2023 06:38-0400 Blood Pressure Location MOLINA VALLE MD FACP [address] 04-02-2023 06:38-0400 Blood Pressure Method MOLINA VALLE MD FACP [address] [place] [address] 04-02-2023 06:38-0400 Body temperature 97.88 [degF] MOLINA VALLE MD FACP [address] [place] [address] 04-02-2023 06:38-0400 Diastolic Blood Pressure Non-Invasive 78 1 MOLINA VALLE MD FACP [address] [place] [address] 04-02-2023 06:38-0400 Mean blood pressure 94 mm[Hg] MOLINA VALLE MD FACP [facility] 04-02-2023 06:38-0400 Reason For Taking VItal Signs MOLINA VALLE MD FACP [facility] 04-02-2023 06:38-0400 Systolic Blood Pressure Non-Invasive 129 1 MOLINA VALLE MD FACP [address] [place] [address] 04-01-2023 14:41-0400 Blood Pressure Cuff Size MOLINA VALLE MD FACP [address] [place] [address] 04-01-2023 14:41-0400 Blood Pressure Location MOLINA VALLE MD FACP [address] [place] [address] 04-01-2023 14:41-0400 Blood Pressure Method MOLINA VALLE MD FACP [address] [place] [address] 04-01-2023 14:41-0400 Reason For Taking VItal Signs MOLINA VALLE MD FACP [address] [place] [address] 04-01-2023 14:14-0400 Reason For Taking VItal Signs MOLINA VALLE MD FACP [address] [place] [address] 04-01-2023 14:05-0400 Body height 160 cm MOLINA VALLE MD FACP [facility] 04-01-2023 14:05-0400 Body weight 100.2 kg MOLINA VALLE MD FACP [address] [place] [address] 04-01-2023 14:05-0400 Body weight 39.14 kg/m2 MOLINA VALLE MD FACP [address] [place] [address] 04-01-2023 13:46-0400 Blood Pressure Location MOLINA VALLE MD FACP [facility] 04-01-2023 13:46-0400 Blood Pressure Method MOLINA VALLE MD FACP [facility] 04-01-2023 13:46-0400 Mean blood pressure 79 mm[Hg] MOLINA VALLE MD FACP [facility] 03-11-2023 15:07-0400 Body temperature 98.24 [degF] SUJATHA DAVID EMERGENCY PLANNING AND RESPONSE MANAGER-IN[employer]OR RELATIONS DIRECTOR [facility] 03-11-2023 15:07-0400 Diastolic Blood Pressure Non-Invasive 78 1 SUJATHA HERNANDEZ EMERGENCY PLANNING AND RESPONSE MANAGER-INVE[employer]OR RELATIONS DIRECTOR [facility] 03-11-2023 15:07-0400 Heart rate 68 /min SUJATHA HERNANDEZ EMERGENCY PLANNING AND RESPONSE MANAGER-INVE[employer]OR RELATIONS DIRECTOR [facility] 03-11-2023 15:07-0400 Reason For Taking VItal Signs SUJATHA HERNANDEZ EMERGENCY PLANNING AND RESPONSE MANAGER-INVESTOR RELATIONS DIRECTOR [facility] 03-11-2023 15:07-0400 Respiratory rate 18 /min SUJATHA HERNANDEZ EMERGENCY PLANNING AND RESPONSE MANAGER-INVESTOR RELATIONS DIRECTOR [facility] 03-11-2023 15:07-0400 Systolic Blood Pressure Non-Invasive 119 1 SUJATHA HERNANDEZ EMERGENCY PLANNING AND RESPONSE MANAGER-INVESTOR RELATIONS DIRECTOR [facility] 03-11-2023 11:06-0400 Body temperature 97.88 [degF] SUJATHA HERNANDEZ EMERGENCY PLANNING AND RESPONSE MANAGER-INVESTOR RELATIONS DIRECTOR [facility] 03-11-2023 11:06-0400 Diastolic Blood Pressure Non-Invasive 76 1 SUJATHA HERNANDEZ EMERGENCY PLANNING AND RESPONSE MANAGER-INVESTOR RELATIONS DIRECTOR [facility] 03-11-2023 11:06-0400 Heart rate 67 /min SUJATHA HERNANDEZ EMERGENCY PLANNING AND RESPONSE MANAGER-INVESTOR RELATIONS DIRECTOR [facility] 03-11-2023 11:06-0400 Reason For Taking VItal Signs SUJATHA HERNANDEZ EMERGENCY PLANNING AND RESPONSE MANAGER-INVESTOR RELATIONS DIRECTOR [facility] 03-11-2023 11:06-0400 Respiratory rate 18 /min SUJATHA HERNANDEZ EMERGENCY PLANNING AND RESPONSE MANAGER-INVESTOR RELATIONS DIRECTOR [facility] 03-11-2023 11:06-0400 Systolic Blood Pressure Non-Invasive 106 1 SUJATHA DAVID EMERGENCY PLANNING AND RESPONSE MANAGER-INVESTOR RELATIONS DIRECTOR [facility] 03-11-2023 08:43-0400 Heart rate 66 /min SUJATHA HERNANDEZ EMERGENCY PLANNING AND RESPONSE MANAGER-INVESTOR RELATIONS DIRECTOR [facility] 03-11-2023 08:05-0400 Body temperature 97.88 [degF] SUJATHA DAVID EMERGENCY PLANNING AND RESPONSE MANAGER-INVESTOR RELATIONS DIRECTOR [facility] 03-11-2023 08:05-0400 Diastolic Blood Pressure Non-Invasive 97 1 SUJATHA DAVID EMERGENCY PLANNING AND RESPONSE MANAGER-INVESTOR RELATIONS DIRECTOR [facility] 03-11-2023 08:05-0400 Heart rate 69 /min SUJATHA HERNANDEZ EMERGENCY PLANNING AND RESPONSE MANAGER-INVESTOR RELATIONS DIRECTOR [facility] 03-11-2023 08:05-0400 Reason For Taking VItal Signs SUJATHA HERNANDEZ EMERGENCY PLANNING AND RESPONSE MANAGER-INVESTOR RELATIONS DIRECTOR [facility] 03-11-2023 08:05-0400 Respiratory rate 18 /min SUJATHA HERNANDEZ EMERGENCY PLANNING AND RESPONSE MANAGER-INVESTOR RELATIONS DIRECTOR [facility] 03-11-2023 08:05-0400 Systolic Blood Pressure Non-Invasive 137 1 SUJATHA DAVID EMERGENCY PLANNING AND RESPONSE MANAGER-INVESTOR RELATIONS DIRECTOR [facility] 03-11-2023 03:26-0400 Heart rate 70 /min SUJATHA HERNANDEZ EMERGENCY PLANNING AND RESPONSE MANAGER-INVESTOR RELATIONS DIRECTOR [facility] 03-10-2023 23:52-0400 Heart rate 63 /min SUJATHA HERNANDEZ EMERGENCY PLANNING AND RESPONSE MANAGER-INVESTOR RELATIONS DIRECTOR [facility] 03-10-2023 06:25-0400 Heart rate 68 /min SUJATHA DAVID EMERGENCY PLANNING AND RESPONSE MANAGER-INVESTOR RELATIONS DIRECTOR [facility] 03-08-2023 19:11-0400 Blood Pressure Cuff Size SUJATHA DAVID EMERGENCY PLANNING AND RESPONSE MANAGER-INVESTOR RELATIONS DIRECTOR [facility] 03-08-2023 19:11-0400 Blood Pressure Location SUJATHA DAVID EMERGENCY PLANNING AND RESPONSE MANAGER-INVESTOR RELATIONS DIRECTOR [facility] 03-08-2023 19:11-0400 Blood Pressure Method SUJATHA DAVID EMERGENCY PLANNING AND RESPONSE MANAGER-INVESTOR RELATIONS DIRECTOR [facility] 03-08-2023 14:40-0400 Heart rate 70 /min SUJATHA DAVID EMERGENCY PLANNING AND RESPONSE MANAGER-INVESTOR RELATIONS DIRECTOR [facility] 03-08-2023 10:59-0400 Heart rate 62 /min SUJATHA DAVID EMERGENCY PLANNING AND RESPONSE MANAGER-INVESTOR RELATIONS DIRECTOR [facility] 03-07-2023 23:09-0400 Body height 160 cm SUJATHA DAVID EMERGENCY PLANNING AND RESPONSE MANAGER-INVESTOR RELATIONS DIRECTOR [facility] 03-07-2023 23:09-0400 Body weight 98.1 kg SUJATHA DAVID EMERGENCY PLANNING AND RESPONSE MANAGER-INVESTOR RELATIONS DIRECTOR [facility] 03-07-2023 23:09-0400 Body weight 38.32 kg/m2 SUJATHA DAVID EMERGENCY PLANNING AND RESPONSE MANAGER-INVESTOR RELATIONS DIRECTOR [facility] 01-25-2023 15:45-0400 Body temperature 98.06 [degF] LETHA CID MD [facility] 01-25-2023 15:45-0400 Diastolic Blood Pressure Non-Invasive 78 1 LETHA CID MD [facility] 01-25-2023 15:45-0400 Heart rate 84 /min LETHA CID MD [facility] 01-25-2023 15:45-0400 Respiratory rate 20 /min LETHA CID MD [facility] 01-25-2023 15:45-0400 Systolic Blood Pressure Non-Invasive 136 1 LETHA CID MD [facility] 01-25-2023 14:09-0400 Diastolic Blood Pressure Non-Invasive 74 1 LETHA CID MD [facility] 01-25-2023 14:09-0400 Heart rate 59 /min LETHA CID MD [facility] 01-25-2023 14:09-0400 Respiratory rate 13 /min LETHA CID MD [facility] 01-25-2023 14:09-0400 Systolic Blood Pressure Non-Invasive 140 1 LETHA CID MD [facility] 01-25-2023 13:00-0400 Diastolic Blood Pressure Non-Invasive 79 1 LETHA CID MD [facility] 01-25-2023 13:00-0400 Heart rate 60 /min LETHA CID MD [facility] 01-25-2023 13:00-0400 Respiratory rate 16 /min LETHA CID MD [facility] 01-25-2023 13:00-0400 Systolic Blood Pressure Non-Invasive 135 1 LETHA CID MD [facility] 01-25-2023 10:30-0400 Blood Pressure Cuff Size LETHA CID MD [facility] 01-25-2023 10:30-0400 Blood Pressure Location LETHA CID MD [facility] 01-25-2023 10:30-0400 Blood Pressure Method LETHA CID MD [facility] 01-25-2023 10:30-0400 Body height 160 cm LETHA CID MD [facility] 01-25-2023 10:30-0400 Body temperature 97.88 [degF] LETHA CID MD [facility] 01-25-2023 10:30-0400 Body weight 90.1 kg LETHA CID MD [facility] 12-06-2022 22:41-0400 Diastolic Blood Pressure Non-Invasive 81 1 OPAL REICHFIELD DO [facility] 12-06-2022 22:41-0400 Heart rate 61 /min OPAL REICHFIELD DO [facility] 12-06-2022 22:41-0400 Respiratory rate 16 /min OPAL REICHFIELD DO [facility] 12-06-2022 22:41-0400 Systolic Blood Pressure Non-Invasive 130 1 OPAL REICHFIELD DO [facility] 12-06-2022 20:44-0400 Body temperature 98.06 [degF] OPAL REICHFIELD DO [facility] 12-06-2022 20:44-0400 Diastolic Blood Pressure Non-Invasive 82 1 OPAL REICHFIELD DO [facility] 12-06-2022 20:44-0400 Heart rate 77 /min OPAL REICHFIELD DO [facility] 12-06-2022 20:44-0400 Respiratory rate 18 /min [facility] 12-06-2022 20:44-0400 Systolic Blood Pressure Non-Invasive 128 1 [facility] 11-13-2022 18:54-0500 Diastolic Blood Pressure Non-Invasive 75 1 ADINA WHITT MD [facility] 11-13-2022 18:54-0500 Heart rate 85 /min ADINA WHITT MD [facility] 11-13-2022 18:54-0500 Respiratory rate 18 /min ADINA WHITT MD [facility] 11-13-2022 18:54-0500 Systolic Blood Pressure Non-Invasive 145 1 ADINA WHITT MD [facility] 11-13-2022 16:36-0500 Diastolic Blood Pressure Non-Invasive 92 1 ADINA WHITT MD [facility] 11-13-2022 16:36-0500 Heart rate 87 /min ADINA WHITT MD [facility] 11-13-2022 16:36-0500 Respiratory rate 18 /min ADINA WHITT MD [facility] 11-13-2022 16:36-0500 Systolic Blood Pressure Non-Invasive 126 1 ADINA WHITT MD [facility] 11-13-2022 14:57-0500 Body temperature 99.32 [degF] ADINA WHITT MD [facility] 11-13-2022 14:57-0500 Diastolic Blood Pressure Non-Invasive 105 1 ADINA WHITT MD [facility] 11-13-2022 14:57-0500 Heart rate 128 /min ADINA WHITT MD [facility] 11-13-2022 14:57-0500 Respiratory rate 18 /min ADINA WHITT MD [facility] 11-13-2022 14:57-0500 Systolic Blood Pressure Non-Invasive 152 1 ADINA WHITT MD [facility] 11-13-2022 00:02-0500 Diastolic Blood Pressure Non-Invasive [address] COLTON BAE MD [facility] 11-13-2022 00:02-0500 Heart rate 76 /min DR COLTON BAE MD [facility] 11-13-2022 00:02-0500 Respiratory rate 16 /min DR COLTON BAE MD [facility] 11-13-2022 00:02-0500 Systolic Blood Pressure Non-Invasive [address] COLTON BAE MD [facility] 11-12-2022 21:20-0500 Body height [address] COLTON BAE MD [facility] 11-12-2022 21:20-0500 Body temperature 98.24 [degF] DR COLTON BAE MD [facility] 11-12-2022 21:20-0500 Body weight [address] COLTON BAE MD [facility] 11-12-2022 21:20-0500 Diastolic Blood Pressure Non-Invasive [address] COLTON BAE MD [facility] 11-12-2022 21:20-0500 Heart rate 80 /min DR COLTON BAE MD [facility] 11-12-2022 21:20-0500 Respiratory rate 16 /min DR COLTON BAE MD [facility] 11-12-2022 21:20-0500 Systolic Blood Pressure Non-Invasive [address] COLTON BAE MD [facility] 10-19-2022 20:20-0500 Diastolic Blood Pressure Non-Invasive 81 1 MOLINA DURESKA DO [facility] 10-19-2022 20:20-0500 Heart rate 70 /min MOLINA DURESKA DO [facility] 10-19-2022 20:20-0500 Reason For Taking VItal Signs MOLINA DURESKA DO [facility] 10-19-2022 20:20-0500 Respiratory rate 16 /min MOLINA DURESKA DO [facility] 10-19-2022 20:20-0500 Systolic Blood Pressure Non-Invasive 141 1 MOLINA DURESKA DO [facility] 10-19-2022 18:53-0500 Diastolic Blood Pressure Non-Invasive 84 1 MOLINA DURESKA DO [facility] 10-19-2022 18:53-0500 Heart rate 72 /min MOLINA DURESKA DO [facility] 10-19-2022 18:53-0500 Reason For Taking VItal Signs MOLINA DURESKA DO [facility] 10-19-2022 18:53-0500 Respiratory rate 18 /min MOLINA DURESKA DO [facility] 10-19-2022 18:53-0500 Systolic Blood Pressure Non-Invasive 148 1 MOLINA DURESKA DO [facility] 10-19-2022 17:19-0500 Diastolic Blood Pressure Non-Invasive 84 1 MOLINA QUIROZ DO [facility] 10-19-2022 17:19-0500 Heart rate 70 /min MOLINA QUIROZ DO [facility] 10-19-2022 17:19-0500 Reason For Taking VItal Signs MOLINA QUIROZ DO [facility] 10-19-2022 17:19-0500 Respiratory rate 18 /min MOLINA QUIROZ DO [facility] 10-19-2022 17:19-0500 Systolic Blood Pressure Non-Invasive 147 1 MOLINA QUIROZ DO [facility] 10-19-2022 11:32-0500 Body temperature 96.98 [degF] MOLINA QUIROZ DO [facility] 10-19-2022 11:32-0500 Body weight 90.9 kg MOLINA QUIROZ DO [facility] 10-18-2022 18:36-0500 Diastolic Blood Pressure Non-Invasive 57 1 YOANA WEAVER MD [facility] 10-18-2022 18:36-0500 Heart rate 70 /min YOANA WEAVER MD [facility] 10-18-2022 18:36-0500 Respiratory rate 16 /min YOANA WEAVER MD [facility] 10-18-2022 18:36-0500 Systolic Blood Pressure Non-Invasive 104 1 YOANA WEAVER MD [facility] 10-18-2022 12:11-0500 Body height 160 cm YOANA WEAVER MD [facility] 10-18-2022 12:11-0500 Body temperature 98.78 [degF] YOANA WEAVER MD [facility] 10-18-2022 12:11-0500 Body weight 93.2 kg YOANA WEAVER MD [facility] 10-18-2022 12:11-0500 Diastolic Blood Pressure Non-Invasive 82 1 YOANA WEAVER MD [facility] 10-18-2022 12:11-0500 Heart rate 64 /min YOANA WEAVER MD [facility] 10-18-2022 12:11-0500 Respiratory rate 18 /min YOANA WEAVER MD [facility] 10-18-2022 12:11-0500 Systolic Blood Pressure Non-Invasive 113 1 YOANA WEAVER MD [facility] 07-27-2022 15:20-0500 Diastolic blood pressure 88 mm[Hg] WAQAR BOYLE MD [facility] 07-27-2022 15:20-0500 Heart rate 74 /min WAQAR BOYLE MD [facility] 07-27-2022 15:20-0500 Reason For Taking VItal Signs WAQAR BOYLE MD [facility] 07-27-2022 15:20-0500 Respiratory rate 16 /min WAQAR BOYLE MD [facility] 07-27-2022 15:20-0500 Systolic blood pressure 131 mm[Hg] WAQAR BOYLE MD [facility] 07-27-2022 14:16-0500 Diastolic blood pressure 92 mm[Hg] WAQAR BOYLE MD [facility] 07-27-2022 14:16-0500 Systolic blood pressure 131 mm[Hg] WAQAR BOYLE MD [facility] 07-27-2022 13:22-0500 Diastolic blood pressure 50 mm[Hg] WAQAR BOYLE MD [facility] 07-27-2022 13:22-0500 Systolic blood pressure 96 mm[Hg] WAQAR BOYLE MD [facility] 07-27-2022 13:07-0500 Heart rate 77 /min WAQAR BOYLE MD [facility] 07-27-2022 13:07-0500 Respiratory rate 16 /min WAQAR BOYLE MD [facility] 07-27-2022 09:16-0500 Body temperature 97.7 [degF] WAQAR BOYLE MD [facility] 07-27-2022 09:16-0500 Body weight 95 kg WAQAR BOYLE MD [facility] 07-27-2022 09:16-0500 Heart rate 85 /min WAQAR BOYLE MD [facility] 07-27-2022 09:16-0500 Respiratory rate 20 /min WAQAR BOYLE MD [facility] 06-22-2022 09:03-0400 Reason For Taking VItal Signs JUWAN BELTRAN MD [facility] 06-22-2022 08:47-0400 Heart rate 66 /min JUWAN BELTRAN MD [facility] 06-22-2022 08:47-0400 Reason For Taking VItal Signs JUWAN BELTRAN MD [facility] 06-22-2022 06:54-0400 Body temperature 98.42 [degF] JUWAN BELTRAN MD [facility] 06-22-2022 06:54-0400 Diastolic blood pressure 75 mm[Hg] JUWAN BELTRAN MD [facility] 06-22-2022 06:54-0400 Heart rate 59 /min JUWAN BELTRAN MD [address] [place] [address] 06-22-2022 06:54-0400 Mean blood pressure 87 mm[Hg] JUWAN BELTRAN MD [address] 06-22-2022 06:54-0400 Reason For Taking VItal Signs JUWAN BELTRAN MD [address] 06-22-2022 06:54-0400 Respiratory rate 18 /min JUWAN BELTRAN MD [address] 06-22-2022 06:54-0400 Systolic blood pressure 112 mm[Hg] JUWAN BELTRAN MD [address] [place] [address] 06-22-2022 04:17-0400 Body temperature 98.42 [degF] JUWAN BELTRAN MD [address] 06-22-2022 04:17-0400 Diastolic blood pressure 74 mm[Hg] JUWAN BELTRAN MD [address] 06-22-2022 04:17-0400 Heart rate 62 /min JUWAN BELTRAN MD [address] 06-22-2022 04:17-0400 Systolic blood pressure 120 mm[Hg] JUWAN BELTRAN MD [address] 06-21-2022 23:55-0400 Body temperature 98.42 [degF] JUWAN BELTRAN MD [address] 06-21-2022 23:55-0400 Diastolic blood pressure 67 mm[Hg] JUWAN BELTRAN MD [address] [place] [address] 06-21-2022 23:55-0400 Heart rate 64 /min JUWAN BELTRAN MD [address] [place] [address] 06-21-2022 23:55-0400 Respiratory rate 18 /min JUWAN BELTRAN MD [address] [place] [address] 06-21-2022 23:55-0400 Systolic blood pressure 123 mm[Hg] JUWAN BELTRAN MD [address] [place] [address] 06-21-2022 19:26-0400 Mean blood pressure 83 mm[Hg] JUWAN BELTRAN MD [address] [place] [address] 06-21-2022 19:26-0400 Respiratory rate 18 /min JUWAN BELTRAN MD [address] [place] [address] 06-21-2022 16:34-0400 Heart rate 64 /min JUWAN BELTRAN MD [address] [place] [address] 06-21-2022 10:17-0400 Heart rate 64 /min JUWAN BELTRAN MD [address] [place] [address] 06-21-2022 08:17-0400 Heart rate 68 /min JUWAN BELTRAN MD [address] [place] [address] 06-21-2022 07:09-0400 Heart rate 65 /min JUWAN BELTRAN MD [address] [place] [address] 06-20-2022 14:21-0400 Heart rate 62 /min JUWAN BELTRAN MD [address] [place] [address] 06-19-2022 07:48-0400 Mean blood pressure 89 mm[Hg] JUWAN BELTRAN MD [address] [place] [address] 06-17-2022 20:28-0400 Body height 160 cm JUWAN BELTRAN MD [address] [place] [address] 06-17-2022 20:28-0400 Body weight 98 kg JUWAN BELTRAN MD [address] [place] [address] 06-17-2022 20:28-0400 Body weight 38.28 kg/m2 JUWAN BELTRAN MD [facility] 06-17-2022 09:50-0400 Body weight 98 kg JUWAN BELTRAN MD [facility] 06-17-2022 07:34-0400 Diastolic blood pressure 86 mm[Hg] LAURA PAINTING MD [facility] 06-17-2022 07:34-0400 Heart rate 81 /min LAURA PAINTING MD [facility] 06-17-2022 07:34-0400 Reason For Taking VItal Signs LAURA PAINTING MD [facility] 06-17-2022 07:34-0400 Respiratory rate 18 /min LAURA PAINTING MD [facility] 06-17-2022 07:34-0400 Systolic blood pressure 101 mm[Hg] LAURA PAINTING MD [facility] 06-17-2022 07:11-0400 Diastolic blood pressure 63 mm[Hg] LAURA PAINTING MD [facility] 06-17-2022 07:11-0400 Heart rate 68 /min LAURA PAINTING MD [facility] 06-17-2022 07:11-0400 Reason For Taking VItal Signs LAURA PAINTING MD [facility] 06-17-2022 07:11-0400 Respiratory rate 16 /min LAURA PAINTING MD [facility] 06-17-2022 07:11-0400 Systolic blood pressure 101 mm[Hg] LAURA PAINTING MD [facility] 06-17-2022 04:02-0400 Body temperature 98.24 [degF] LAURA PAINTING MD [facility] 06-17-2022 04:02-0400 Diastolic blood pressure 95 mm[Hg] LAURA PAINTING MD [facility] 06-17-2022 04:02-0400 Heart rate 90 /min LAURA PAINTING MD [facility] 06-17-2022 04:02-0400 Respiratory rate 18 /min LAURA PAINTING MD [facility] 06-17-2022 04:02-0400 Systolic blood pressure 131 mm[Hg] LAURA PAINTING MD [facility] 04-12-2022 11:00-0400 Body height 160 cm SHARLENE CALIXTO DO [facility] 04-12-2022 11:00-0400 Body temperature 97.7 [degF] SHARLENE CALIXTO DO [facility] 04-12-2022 11:00-0400 Body weight 91 kg SHARLENE CALIXTO DO [facility] 04-12-2022 11:00-0400 Diastolic blood pressure 93 mm[Hg] SHARLENE CALIXTO DO [facility] 04-12-2022 11:00-0400 Heart rate 91 /min SHARLENE CALIXTO DO [facility] 04-12-2022 11:00-0400 Respiratory rate 16 /min SHARLENE CALIXTO DO [facility] 04-12-2022 11:00-0400 Systolic blood pressure 138 mm[Hg] SHARLENE CALIXTO DO [facility] 03-10-2022 18:00-0400 Diastolic blood pressure 80 mm[Hg] ADINA WHITT MD [facility] 03-10-2022 18:00-0400 Heart rate 94 /min ADINA WHITT MD [facility] 03-10-2022 18:00-0400 Mean blood pressure 92 mm[Hg] ADINA WHTIT MD [facility] 03-10-2022 18:00-0400 Systolic blood pressure 116 mm[Hg] ADINA WHITT MD [facility] 03-10-2022 15:57-0400 Body temperature 98.06 [degF] ADINA WHITT MD [facility] 03-10-2022 15:57-0400 Body weight 90.7 kg ADINA WHITT MD [facility] 03-10-2022 15:57-0400 Diastolic blood pressure 85 mm[Hg] ADINA WHITT MD [facility] 03-10-2022 15:57-0400 Heart rate 99 /min ADINA WHITT MD [facility] 03-10-2022 15:57-0400 Mean blood pressure 96 mm[Hg] ADINA WHITT MD [facility] 03-10-2022 15:57-0400 Respiratory rate 16 /min ADINA WHITT MD [facility] 03-10-2022 15:57-0400 Systolic blood pressure 119 mm[Hg] ADINA WHITT MD [facility] 02-11-2022 22:30-0400 Diastolic blood pressure 65 mm[Hg] QUOC GOMEZ MD [facility] 02-11-2022 22:30-0400 Heart rate 66 /min QUOC GOMEZ MD [facility] 02-11-2022 22:30-0400 Respiratory rate 16 /min QUOC GOMEZ MD [facility] 02-11-2022 22:30-0400 Systolic blood pressure 102 mm[Hg] QUOC GOMEZ MD [facility] 02-11-2022 22:15-0400 Diastolic blood pressure 66 mm[Hg] QUOC GOMEZ MD [facility] 02-11-2022 22:15-0400 Heart rate 64 /min QUOC GOMEZ MD [facility] 02-11-2022 22:15-0400 Mean blood pressure 77 mm[Hg] QUOC GOMEZ MD [facility] 02-11-2022 22:15-0400 Respiratory rate 20 /min QUOC GOMEZ MD [facility] 02-11-2022 22:15-0400 Systolic blood pressure 100 mm[Hg] QUOC GOMEZ MD [facility] 02-11-2022 21:10-0400 Diastolic blood pressure 84 mm[Hg] QUOC GOMEZ MD [facility] 02-11-2022 21:10-0400 Heart rate 75 /min QUOC GOMEZ MD [facility] 02-11-2022 21:10-0400 Mean blood pressure 95 mm[Hg] QUOC GOMEZ MD [facility] 02-11-2022 21:10-0400 Respiratory rate 20 /min QUOC GOMEZ MD [facility] 02-11-2022 21:10-0400 Systolic blood pressure 116 mm[Hg] QUOC GOMEZ MD [facility] 02-11-2022 18:32-0400 Body height 162.5 cm QUOC GOMEZ MD [facility] 02-11-2022 18:32-0400 Body temperature 98.24 [degF] QUOC GOMEZ MD [facility] 02-11-2022 18:32-0400 Body weight 90.9 kg QUOC GOMEZ MD [facility] 02-02-2022 21:54-0400 Diastolic blood pressure 78 mm[Hg] DR ALEXEY CHEEK DO [facility] 02-02-2022 21:54-0400 Heart rate 61 /min DR ALEXEY CHEEK DO [facility] 02-02-2022 21:54-0400 Reason For Taking VItal Signs DR ALEXEY CHEEK DO [facility] 02-02-2022 21:54-0400 Respiratory rate 16 /min DR ALEXEY CHEEK DO [facility] 02-02-2022 21:54-0400 Systolic blood pressure 100 mm[Hg] DR ALEXEY CHEEK DO [facility] 02-02-2022 18:35-0400 Body temperature 98.42 [degF] DR ALEXEY CHEEK DO [facility] 02-02-2022 18:35-0400 Body weight 114.[address] ALEXEY CHEEK DO [facility] 02-02-2022 18:35-0400 Diastolic blood pressure 58 mm[Hg] DR ALEXEY CHEEK DO [facility] 02-02-2022 18:35-0400 Heart rate 92 /min DR ALEXEY CHEEK DO [facility] 02-02-2022 18:35-0400 Respiratory rate 20 /min DR ALEXEY CHEEK DO [facility] 02-02-2022 18:35-0400 Systolic blood pressure 114 mm[Hg] DR ALEXEY CHEEK DO [facility] 10-28-2021 10:24-0500 Diastolic blood pressure 72 mm[Hg] DR JIM LEIGH MD [facility] 10-28-2021 10:24-0500 Heart rate 68 /min DR JIM LEIGH MD [facility] 10-28-2021 10:24-0500 Mean blood pressure 89 mm[Hg] DR JIM LEIGH MD [facility] 10-28-2021 10:24-0500 Respiratory rate 16 /min DR JIM LEIGH MD [facility] 10-28-2021 10:24-0500 Systolic blood pressure 122 mm[Hg] DR JIM LEIGH MD [facility] 10-28-2021 08:36-0500 Body temperature 98.24 [degF] DR JIM LEIGH MD [facility] 10-28-2021 08:36-0500 Diastolic blood pressure 74 mm[Hg] DR JIM LEIGH MD [facility] 10-28-2021 08:36-0500 Heart rate 66 /min DR JIM LEIGH MD [facility] 10-28-2021 08:36-0500 Mean blood pressure 89 mm[Hg] DR JIM LEIGH MD [facility] 10-28-2021 08:36-0500 Respiratory rate 16 /min DR JIM LEIGH MD [facility] 10-28-2021 08:36-0500 Systolic blood pressure 119 mm[Hg] DR JIM LEIGH MD [facility] 09-24-2021 15:58-0500 Body temperature 97.88 [degF] ANDREEA HARPER EMERGENCY PLANNING AND RESPONSE MANAGER-INVESTOR RELATIONS DIRECTOR [facility] 09-24-2021 15:58-0500 Diastolic blood pressure 52 mm[Hg] ANDREEA HARPER EMERGENCY PLANNING AND RESPONSE MANAGER-INVESTOR RELATIONS DIRECTOR [facility] 09-24-2021 15:58-0500 Heart rate 64 /min ANDREEA HARPER EMERGENCY PLANNING AND RESPONSE MANAGER-INVESTOR RELATIONS DIRECTOR [facility] 09-24-2021 15:58-0500 Mean blood pressure 68 mm[Hg] ANDREEA HARPER EMERGENCY PLANNING AND RESPONSE MANAGER-INVESTOR RELATIONS DIRECTOR [facility] 09-24-2021 15:58-0500 Reason For Taking VItal Signs ANDREEA HARPER EMERGENCY PLANNING AND RESPONSE MANAGER-INVESTOR RELATIONS DIRECTOR [facility] 09-24-2021 15:58-0500 Respiratory rate 12 /min ANDREEA HARPER EMERGENCY PLANNING AND RESPONSE MANAGER-INVESTOR RELATIONS DIRECTOR [facility] 09-24-2021 15:58-0500 Systolic blood pressure 99 mm[Hg] ANDREEA HARPER EMERGENCY PLANNING AND RESPONSE MANAGER-INVESTOR RELATIONS DIRECTOR [facility] 09-24-2021 11:33-0500 Body temperature 98.6 [degF] ANDREEA HARPER EMERGENCY PLANNING AND RESPONSE MANAGER-INVESTOR RELATIONS DIRECTOR [facility] 09-24-2021 11:33-0500 Diastolic blood pressure 50 mm[Hg] ANDREEA HARPER EMERGENCY PLANNING AND RESPONSE MANAGER-INVESTOR RELATIONS DIRECTOR [facility] 09-24-2021 11:33-0500 Heart rate 70 /min ANDREEA HARPER EMERGENCY PLANNING AND RESPONSE MANAGER-INVESTOR RELATIONS DIRECTOR [facility] 09-24-2021 11:33-0500 Mean blood pressure 64 mm[Hg] ANDREEA HARPER EMERGENCY PLANNING AND RESPONSE MANAGER-INVESTOR RELATIONS DIRECTOR [facility] 09-24-2021 11:33-0500 Reason For Taking VItal Signs ANDREEA HARPER EMERGENCY PLANNING AND RESPONSE MANAGER-INVESTOR RELATIONS DIRECTOR [facility] 09-24-2021 11:33-0500 Respiratory rate 12 /min ANDREEA HARPER EMERGENCY PLANNING AND RESPONSE MANAGER-INVESTOR RELATIONS DIRECTOR [facility] 09-24-2021 11:33-0500 Systolic blood pressure 91 mm[Hg] ANDREEA HARPER EMERGENCY PLANNING AND RESPONSE MANAGER-INVESTOR RELATIONS DIRECTOR [facility] 09-24-2021 11:18-0500 Respiratory rate 18 /min ANDREEA HARPER EMERGENCY PLANNING AND RESPONSE MANAGER-INVESTOR RELATIONS DIRECTOR [facility] 09-24-2021 10:47-0500 Heart rate 74 /min ANDREEA HARPER EMERGENCY PLANNING AND RESPONSE MANAGER-INVESTOR RELATIONS DIRECTOR [facility] 09-24-2021 09:07-0500 Body temperature 98.24 [degF] ANDREEA HARPER EMERGENCY PLANNING AND RESPONSE MANAGER-INVESTOR RELATIONS DIRECTOR [facility] 09-24-2021 09:07-0500 Diastolic blood pressure 64 mm[Hg] ANDREEA HERNANSAMANTHANATIVIDAD EMERGENCY PLANNING AND RESPONSE MANAGER-INVESTOR RELATIONS DIRECTOR [facility] 09-24-2021 09:07-0500 Heart rate 78 /min ANDREEA BECERRASAMANTHANATIVIDAD EMERGENCY PLANNING AND RESPONSE MANAGER-INVESTOR RELATIONS DIRECTOR [facility] 09-24-2021 09:07-0500 Reason For Taking VItal Signs ANDREEA HARPER APRN-INVESTOR RELATIONS DIRECTOR [facility] 09-24-2021 09:07-0500 Systolic blood pressure 100 mm[Hg] ANDREEA HARPER EMERGENCY PLANNING AND RESPONSE MANAGER-INVESTOR RELATIONS DIRECTOR [facility] 09-24-2021 04:39-0500 Heart rate 81 /min ANDREEA HENRANSAMANTHANATIVIDAD EMERGENCY PLANNING AND RESPONSE MANAGER-INVESTOR RELATIONS DIRECTOR [facility] 09-23-2021 22:59-0500 Heart rate 73 /min ANDREEA HARPER EMERGENCY PLANNING AND RESPONSE MANAGER-INVESTOR RELATIONS DIRECTOR [facility] 09-23-2021 22:10-0500 Heart rate 72 /min ANDREEA HERNANSAMANTHANATIVIDAD EMERGENCY PLANNING AND RESPONSE MANAGER-INVESTOR RELATIONS DIRECTOR [facility] 09-23-2021 16:39-0500 Mean blood pressure 85 mm[Hg] ANDREEA HARPER EMERGENCY PLANNING AND RESPONSE MANAGER-INVESTOR RELATIONS DIRECTOR [facility] 09-23-2021 12:28-0500 Heart rate 82 /min ANDREEA HARPER EMERGENCY PLANNING AND RESPONSE MANAGER-INVESTOR RELATIONS DIRECTOR [facility] 09-23-2021 10:34-0500 Heart rate 72 /min ANDREEA HARPER EMERGENCY PLANNING AND RESPONSE MANAGER-INVESTOR RELATIONS DIRECTOR [facility] 09-22-2021 22:52-0500 Body height 160 cm ANDREEA HARPER EMERGENCY PLANNING AND RESPONSE MANAGER-INVESTOR RELATIONS DIRECTOR [facility] 09-22-2021 22:52-0500 Body weight 92 kg ANDREEA HARPER EMERGENCY PLANNING AND RESPONSE MANAGER-INVESTOR RELATIONS DIRECTOR [facility] 09-22-2021 22:52-0500 Body weight 35.94 kg/m2 ANDREEA HARPER EMERGENCY PLANNING AND RESPONSE MANAGER-INVESTOR RELATIONS DIRECTOR [facility] 09-09-2021 14:43-0500 Diastolic blood pressure 98 mm[Hg] LAURA PAINTING MD [facility] 09-09-2021 14:43-0500 Heart rate 114 /min LAURA PAINTING MD [facility] 09-09-2021 14:43-0500 Respiratory rate 18 /min LAURA PAINTING MD [facility] 12-22-2021 14:43-0500 Systolic blood pressure 138 mm[Hg] LAURA PAINTING MD [facility] 09-09-2021 13:42-0500 Diastolic blood pressure 84 mm[Hg] LAURA PAINTING MD [facility] 09-09-2021 13:42-0500 Heart rate 82 /min LAURA PAINTING MD [facility] 09-09-2021 13:42-0500 Respiratory rate 18 /min LAURA PAINTING MD [facility] 09-09-2021 13:42-0500 Systolic blood pressure 128 mm[Hg] LAURA PAINTING MD [facility] 09-09-2021 12:16-0500 Body height 160 cm LAURA PAINTING MD [facility] 09-09-2021 12:16-0500 Body temperature 98.24 [degF] LAURA PAINTING MD [facility] 09-09-2021 12:16-0500 Body weight 91 kg LAURA PAINTING MD [facility] 09-09-2021 12:16-0500 Diastolic blood pressure 80 mm[Hg] LAURA PAINTING MD [facility] 09-09-2021 12:16-0500 Heart rate 86 /min LAURA PAINTING MD [facility] 09-09-2021 12:16-0500 Respiratory rate 20 /min LAURA PAINTING MD [facility] 09-09-2021 12:16-0500 Systolic blood pressure 120 mm[Hg] LAURA PAINTING MD [facility] 08-06-2021 17:10-0500 Diastolic blood pressure 74 mm[Hg] DR COLTON BAE MD [facility] 08-06-2021 17:10-0500 Heart rate 62 /min DR COLTON BAE MD [facility] 08-06-2021 17:10-0500 Reason For Taking VItal Signs DR COLTON BAE MD [facility] 08-06-2021 17:10-0500 Respiratory rate 18 /min DR COLTON BAE MD [facility] 08-06-2021 17:10-0500 Systolic blood pressure 100 mm[Hg] DR COLTON BAE MD [facility] 08-06-2021 14:31-0500 Body temperature 98.06 [degF] DR COLTON BAE MD [facility] 08-06-2021 14:31-0500 Body weight [address] COLTON BAE MD [facility] 08-06-2021 14:31-0500 Diastolic blood pressure 71 mm[Hg] DR COLTON ABE MD [facility] 08-06-2021 14:31-0500 Heart rate 80 /min DR COLTON BAE MD [facility] 08-06-2021 14:31-0500 Respiratory rate 18 /min DR COLTON BAE MD [facility] 08-06-2021 14:31-0500 Systolic blood pressure 108 mm[Hg] DR COLTON BAE MD [facility] 07-31-2021 10:28-0500 Body temperature 97.52 [degF] BINU LOVELLT DO [facility] 07-31-2021 10:28-0500 Diastolic blood pressure 79 mm[Hg] BINU JARRODMELT DO [facility] 07-31-2021 10:28-0500 Heart rate 75 /min BINU FROMMELT DO [facility] 07-31-2021 10:28-0500 Respiratory rate 16 /min BINU FROMMELT DO [facility] 07-31-2021 10:28-0500 Systolic blood pressure 127 mm[Hg] BINU DILEEP [facility] 07-02-2021 13:03-0400 Diastolic blood pressure 66 mm[Hg] DR JIM LEIGH MD [facility] 07-02-2021 13:03-0400 Heart rate 58 /min DR JIM LEIGH MD [facility] 07-02-2021 13:03-0400 Respiratory rate 17 /min DR JIM LEIGH MD [facility] 07-02-2021 13:03-0400 Systolic blood pressure 114 mm[Hg] DR JIM LEIGH MD [facility] 07-02-2021 12:33-0400 Diastolic blood pressure 72 mm[Hg] DR JIM LEIGH MD [facility] 07-02-2021 12:33-0400 Heart rate 56 /min DR JIM LEIGH MD [facility] 07-02-2021 12:33-0400 Respiratory rate 16 /min DR JIM LEIGH MD [facility] 07-02-2021 12:33-0400 Systolic blood pressure 118 mm[Hg] DR JIM LEIGH MD [facility] 07-02-2021 12:01-0400 Diastolic blood pressure 78 mm[Hg] DR JIM LEIGH MD [facility] 07-02-2021 12:01-0400 Heart rate 55 /min DR JIM LEIGH MD [facility] 07-02-2021 12:01-0400 Respiratory rate 16 /min DR JIM LEIGH MD [facility] 07-02-2021 12:01-0400 Systolic blood pressure 110 mm[Hg] DR JIM LEIGH MD [facility] 07-02-2021 09:50-0400 Body height [address] JIM LEIGH MD [facility] 07-02-2021 09:50-0400 Body temperature 98.24 [degF] DR JIM LEIGH MD [facility] 07-02-2021 09:50-04[address] Body weight [address] JIM LEIGH MD [facility] 07-02-2021 09:50-0400 Heart rate 56 /min DR JIM LEIGH MD [facility] Encounters Encounter Date Encounter Type Care Provider Facility Start: 06-11-2024 End: 06-12-2024 Telephone encounter Laury Orr APRN.CNP Work Phone: OB/Gynecology Comment on above: Patient Update Start: 06-08-2024 End: 06-08-2024 ambulatory LAURY ORR Facility:[place] Start: 06-08-2024 End: 06-08-2024 Patient encounter procedure Laury Orr KESHIA Work Phone: OB/Gynecology Comment on above: Vulvar lesion (Prima ry Dx); Vulvar mass Start: 06-06-2024 End: 06-06-2024 ambulatory [facility] Start: 06-04-2024 End: 06-04-2024 Emergency department patient visit [facility] Start: 05-31-2024 End: 05-31-2024 ambulatory LYNN MAIER Facility:[place] Start: 05-31-2024 End: 05-31-2024 Patient encounter procedure Lynn Maier MD Work Phone: OB/Gynecology Comment on above: Vulvar skin tag (Scarlet lily Dx); Vaginal yeast infection Start: 05-30-2024 End: 05-30-2024 Emergency department patient visit [facility] Start: 05-30-2024 End: 05-30-2024 ambulatory [facility] Start: 05-28-2024 End: 05-28-2024 Emergency department patient visit [facility] Start: 05-23-2024 End: 05-23-2024 ambulatory [facility] Start: 05-15-2024 End: 05-15-2024 Emergency department patient visit [facility] Start: 05-09-2024 End: 05-09-2024 ambulatory [facility] Start: 04-27-2024 End: 04-27-2024 ambulatory [facility] Start: 04-21-2024 End: 04-21-2024 Emergency department patient visit [facility] Start: 04-12-2024 End: 04-13-2024 Emergency department patient visit [facility] Start: 04-09-2024 End: 04-09-2024 ambulatory COLTON Almaraz [facility] Start: 04-03-2024 End: 04-03-2024 Emergency department patient visit PAUL [facility] Start: 03-30-2024 End: 03-30-2024 Emergency department patient visit THANG HUNTER [facility] Start: 03-30-2024 End: 03-30-2024 ambulatory [facility] Start: 03-28-2024 End: 03-28-2024 ambulatory [facility] Start: 03-28-2024 End: 03-28-2024 ambulatory [facility] Start: 03-21-2024 ambulatory CJ RIVERA EMERGENCY PLANNING AND RESPONSE MANAGER-INVESTOR RELATIONS DIRECTOR Facility:B Start: 03-17-2024 End: 03-24-2024 Evaluation and management of inpatient COLTON Almaraz [facility] Start: 03-16-2024 End: 03-17-2024 Evaluation and management of inpatient URBANO LAINEZ [facility] Start: 03-14-2024 End: 03-14-2024 ambulatory [facility] Start: 03-14-2024 End: 03-14-2024 ambulatory [facility] Start: 03-11-2024 End: 03-11-2024 Emergency department patient visit PAUL [facility] Start: 03-05-2024 End: 03-06-2024 ambulatory NANCY Dial JHONATAN [facility] Start: 03-05-2024 End: 03-05-2024 Subsequent hospital visit by physician Baljinder [id number] Holter/Ecg Resource [facility] Comment on above: Arrived Start: 03-05-2024 End: 03-05-2024 Emergency department patient visit CJ RIVERA [facility] Emergency Medicine Comment on above: History of epistaxis (Primary Dx); Hematemesis, unspecified whether nausea present; Anticoagulated Start: 02-27-2024 End: 03-02-2024 Evaluation and management of inpatient Mike Land MD Work Phone: [facility] 3 Comment on above: Idiopathic chronic p ancreatitis (Multi) (Primary Dx); Pulmonary embolism on right (Multi); Single subsegmental pulmonary embolism without acute cor pulmonale (Multi); Pulmonary embolism (Multi); Swelling of extremity; Anticoagulant long-term use Start: 02-15-2024 End: 02-21-2024 Evaluation and management of inpatient [facility] Start: 02-15-2024 End: 02-19-2024 ambulatory CJ RIVERA APRN-INVESTOR RELATIONS DIRECTOR Facility:B Start: 02-15-2024 End: 02-19-2024 Outreach Lab CJ RIVERA APRN-INVESTOR RELATIONS DIRECTOR [facility] Start: 02-15-2024 End: 02-15-2024 ambulatory [facility] Start: 02-04-2024 End: 02-08-2024 Evaluation and management of inpatient [facility] Start: 02-02-2024 End: 02-02-2024 Office outpatient new 30 minutes Tianna Rasmussen MD Work Phone: [facility] Comment on above: Generalized abdomina l pain (Primary Dx); Chronic pancreatitis, unspecified pancreatitis type (Multi) Start: 02-02-2024 End: 02-02-2024 ambulatory [facility] Start: 01-18-2024 End: 01-18-2024 ambulatory CJ RIVERA APRN-INVESTOR RELATIONS DIRECTOR Facility:B Start: 01-18-2024 End: 01-18-2024 Patient encounter procedure CJ RIVERA APRN-INVESTOR RELATIONS DIRECTOR [facility] Start: 01-18-2024 End: 01-18-2024 ambulatory [facility] Start: 01-04-2024 End: 01-04-2024 ambulatory [facility] Start: 12-21-2023 End: 12-21-2023 ambulatory [facility] Start: 12-18-2023 End: 12-18-2023 ambulatory NANCY ARROYO MD Facility:[facility] Start: 12-05-2023 End: 12-08-2023 ambulatory [facility] Start: 12-05-2023 End: 12-08-2023 Evaluation and management of inpatient Nancy Agrawal MD Work Phone: [facility] [place] 20 Comment on above: Generalized abdomina l pain (Primary Dx); Pseudocyst of pancreas; Factor V deficiency (CMS/HCC); Acute embolism and thrombosis of unspecified deep veins of distal lower extremity, bilateral (CMS/HCC); Palpitations; Factor 5 Leiden mutation, heterozygous (CMS/HCC) Start: 12-05-2023 End: 12-05-2023 Subsequent hospital visit by physician Uvaldo Chavez MD Work Phone: [facility] Comment on above: Other chronic pancre atitis (CMS/HCC) Start: 12-05-2023 End: 12-05-2023 ambulatory [facility] Start: 11-23-2023 End: 11-23-2023 ambulatory [facility] Start: 11-10-2023 End: 11-10-2023 Emergency department patient visit LYNN CHANDLER [facility] Start: 11-10-2023 End: 11-15-2023 Evaluation and management of inpatient Chi Galvin MD Work Phone: [facility] [place] 60 Comment on above: Pseudocyst of pancre as (Primary Dx); Chronic pancreatitis, unspecified pancreatitis type (CMS/HCC); Right ear impacted cerumen Start: 11-09-2023 End: 11-09-2023 Subsequent hospital visit by physician Fortunato Redmond [facility] Comment on above: Chronic pancreatitis , unspecified pancreatitis type (CMS/HCC) Start: 11-09-2023 End: 11-09-2023 ambulatory COLTON HICKS [facility] Start: 11-09-2023 End: 11-09-2023 ambulatory [facility] Start: 11-04-[address] MARGIE SOTO DO Fac ility:B Start: 11-04-2023 End: 11-04-[address] MARGIE SOTO DO Facility:B Start: 11-04-2023 End: 11-04-[address] MARGIE SOTO DO [facility] Start: 10-27-2023 End: 10-27-2023 Office outpatient visit 25 minutes Tianna Rasmussen MD Work Phone: [facility] Comment on above: Chronic pancreatitis , unspecified pancreatitis type (CMS/HCC) (Primary Dx); Generalized abdominal pain Start: 10-27-2023 End: 10-27-2023 ambulatory [facility] Start: 10-18-2023 End: 10-18-[address] MARGIE SOTO DO Facility:B Start: 10-18-2023 End: 10-18-2023 Subsequent hospital visit by physician Baljinder Ir 2 [facility] Comment on above: Poor intravenous acc ess Start: 10-18-2023 End: 10-18-2023 ambulatory SHANTELL ROSSI [facility] Start: 10-17-2023 End: 10-17-2023 Emergency department patient visit ADINA WHITT MD [facility] Start: 10-12-2023 End: 10-12-2023 ambulatory [facility] Start: 10-12-2023 End: 10-12-2023 ambulatory COLTON HICKS [facility] Start: 09-28-2023 End: 09-28-2023 ambulatory [facility] Start: 09-06-2023 End: 09-06-2023 ambulatory [facility] Start: 08-26-2023 End: 08-26-2023 Subsequent hospital visit by physician [facility] Comment on above: Poor intravenous acc ess Start: 08-26-2023 End: 08-26-2023 ambulatory [facility] Start: 08-23-2023 End: 08-23-2023 ambulatory [facility] Start: 08-09-2023 End: 08-13-[address] MARGIE SOTO DO Facility:B Start: 08-09-2023 End: 08-13-[address] MARGIE SOTO DO [facility] Start: 08-03-2023 End: 08-03-2023 ambulatory CJ RIVERA [facility] Start: 08-03-2023 End: 08-03-2023 Office outpatient visit 40 minutes Colton Hicks MD Work Phone: [facility] Comment on above: Chronic pancreatitis , unspecified pancreatitis type (CMS/HCC) (Primary Dx) Start: 08-03-2023 End: 08-03-2023 ambulatory COLTON HICKS [facility] Start: 07-27-2023 End: 07-27-2023 ambulatory [facility] Start: 07-26-[address] MARGIE SOTO DO Fac ility:A Start: 07-19-2023 ambulatory [facility] Start: 07-05-2023 End: 07-05-2023 Emergency department patient visit MADELIN ALDANA [facility] Start: 07-05-2023 ambulatory [facility] Start: 06-27-2023 Refill Alaina nicholson EMERGENCY PLANNING AND RESPONSE MANAGER.INVESTOR RELATIONS DIRECTOR Work Phone: Neurology Comment on above: Refill Request Start: 06-16-2023 AUDIT Cj Hooper on Work Phone: [facility] Work Phone: Start: 06-15-2023 End: 06-18-2023 Evaluation and management of inpatient Angela Miles MD Work Phone: [facility] [place] 3 Comment on above: Epigastric pain; Other chronic pancreatitis (CMS/HCC) Start: 06-14-2023 End: 06-18-2023 Evaluation and management of inpatient Chastity León [facility] [address] 3 [address] Start: 06-03-2023 End: 06-03-2023 Emergency department patient visit YOANA WEAVER MD [facility] Start: 05-25-2023 Current tobacco non- user cad cap copd pv dm Cj Rivera Work Phone: [facility] Work Phone: Start: 05-23-2023 End: 05-23-2023 Emergency department patient visit DR ALEXEY CHEEK DO [facility] Start: 05-19-2023 End: 05-19-2023 Emergency department patient visit LETHA CID MD [facility] Start: 05-18-2023 Patient encounter procedure Colton Hicks [facility] Start: 05-12-2023 End: 05-16-2023 Evaluation and management of inpatient Adelina Og [facility] Lksd 20 2008 Start: 05-09-2023 End: 05-09-2023 Emergency department patient visit YOANA WEAVER MD [facility] Start: 05-08-2023 Refill Sarah Osorio PA-C Work Phone: Neurology Comment on above: Refill Request Start: 04-30-2023 End: 04-30-2023 Emergency department patient visit SHARLA [facility] Start: 04-29-2023 End: 04-30-2023 Emergency department patient visit Lisbeth Davies DO Work Phone: [facility] Comment on above: Psychosis, unspecifi ed psychosis type (HCC) (Primary Dx); Agitation Start: 04-29-2023 End: 04-29-2023 Emergency department patient visit MOLINA QUIROZ DO [facility] Start: 04-25-2023 End: 04-28-2023 Evaluation and management of inpatient Terry Y Alsallamin [facility] [id number] Start: 04-25-2023 End: 04-25-2023 Emergency department patient visit WIN ALLRED MD [facility] Start: 04-01-2023 End: 04-03-2023 Evaluation and management of inpatient MOLINA VALLE MD [facility] Start: 03-28-2023 End: 04-01-2023 Evaluation and management of inpatient CJ RIVERA EMERGENCY PLANNING AND RESPONSE MANAGER-INVESTOR RELATIONS DIRECTOR Facility:B Start: 03-07-2023 End: 03-11-2023 Evaluation and management of inpatient SUJATHA LEVIBERNIE EMERGENCY PLANNING AND RESPONSE MANAGER-INVESTOR RELATIONS DIRECTOR [facility] Start: 01-25-2023 Refill Alaina nicholson EMERGENCY PLANNING AND RESPONSE MANAGER.INVESTOR RELATIONS DIRECTOR Work Phone: Neurology Comment on above: Refill Request Start: 01-25-2023 End: 01-25-2023 Emergency department patient visit LETHA CID MD [facility] Start: 01-24-2023 End: 01-24-2023 Patient encounter procedure CJ RIVERA EMERGENCY PLANNING AND RESPONSE MANAGER-INVESTOR RELATIONS DIRECTOR [facility] Start: 12-07-2022 Refill Sin Hayes PRN.INVESTOR RELATIONS DIRECTOR Work Phone: Neurology Comment on above: Refill Request Start: 12-06-2022 End: 12-06-2022 Emergency department patient visit OPAL REYNOLDS DO [facility] Start: 11-13-2022 End: 11-13-2022 Emergency department patient visit ADINA WHITT MD [facility] Start: 11-12-2022 End: 11-13-2022 Emergency department patient visit DR COLTON BAE MD [facility] Start: 11-08-2022 Refill Alaina nicholson EMERGENCY PLANNING AND RESPONSE MANAGER.INVESTOR RELATIONS DIRECTOR Work Phone: Neurology Comment on above: Refill Request Start: 10-19-2022 End: 10-19-2022 Emergency department patient visit MOLINA QUIROZ DO [facility] Start: 10-18-2022 End: 10-18-2022 Emergency department patient visit YOANA WEAVER MD [facility] Start: 10-10-2022 Refill Sin COLEINVESTOR RELATIONS DIRECTOR Work Phone: Neurology Comment on above: Refill Request Start: 09-07-2022 Refill Alaina nicholson EMERGENCY PLANNING AND RESPONSE MANAGER.INVESTOR RELATIONS DIRECTOR Work Phone: Neurology Comment on above: Refill Request Start: 07-28-2022 Telephone encounter Joselyn Moon MD Work Phone: Neurology Comment on above: Other Start: 07-27-2022 End: 07-27-2022 Emergency department patient visit WAQAR BOYLE MD [facility] Start: 06-17-2022 End: 06-22-2022 Evaluation and management of inpatient JUWAN BELTRAN MD [facility] Start: 06-17-2022 End: 06-17-2022 Emergency department patient visit LAURA PAINTING MD [facility] Start: 06-14-2022 Refill Sin Hayes PRN.INVESTOR RELATIONS DIRECTOR Work Phone: Neurology Comment on above: Refill Request Start: 05-06-2022 Refill Alaina nicholson EMERGENCY PLANNING AND RESPONSE MANAGER.INVESTOR RELATIONS DIRECTOR Work Phone: Neurology Comment on above: Refill Request Start: 04-13-2022 Refill Sarah Osorio PA-C Work Phone: Neurology Comment on above: Refill Request Start: 04-12-2022 End: 04-12-2022 Emergency department patient visit SHARLENE CALIXTO DO [facility] Start: 03-10-2022 End: 03-10-2022 Emergency department patient visit ADINA WHITT MD [facility] Start: 02-11-2022 End: 02-11-2022 Emergency department patient visit QUOC GOMEZ MD [facility] Start: 02-02-2022 End: 02-02-2022 Emergency department patient visit DR ALEXEY CHEEK DO [facility] Start: 12-28-2021 Refill Chinedu Hayes PRN.INVESTOR RELATIONS DIRECTOR Work Phone: Neurology Comment on above: Refill Request Start: 10-28-2021 End: 10-28-2021 Emergency department patient visit DR JIM LEIGH MD [facility] Start: 09-22-2021 End: 09-24-2021 Evaluation and management of inpatient BAILEE BECK EMERGENCY PLANNING AND RESPONSE MANAGER-INVESTOR RELATIONS DIRECTOR [facility] Start: 09-09-2021 End: 09-09-2021 Emergency department patient visit LAURA PAINTING MD [facility] Start: 08-06-2021 End: 08-06-2021 Emergency department patient visit DR COLTON BAE MD [facility] Start: 07-31-2021 End: 07-31-2021 Emergency department patient visit BINU FALK DO [facility] Start: 07-02-2021 End: 07-02-2021 Emergency department patient visit DR JIM LEIGH MD [facility] Start: 06-30-2021 End: 06-30-2021 Patient encounter procedure CHRYSTAL GAVIRIA EMERGENCY PLANNING AND RESPONSE MANAGER-INVESTOR RELATIONS DIRECTOR [facility] Start: 12-03-2019 End: 12-03-2019 Emergency department patient visit PARUL LAWRENCE [facility] Start: 12-02-2017 End: 12-05-2017 Evaluation and management of inpatient [facility] Facility:[facility] Start: 11-15-2017 Emergency department patient visit UNKNOWN PROVIDER [facility] Start: 10-28-2017 Ambulatory Alec Start: 10-27-2017 Emergency department patient visit Emergency Physicians Sally Lindsey Facility:[facility] Start: 10-10-2017 End: 10-10-2017 Emergency department patient visit Sharla Fritz Facility:[facility] Start: 08-11-2017 End: 08-11-2017 Emergency department patient visit Sharla Fritz Facility:[facility] Start: 06-17-2017 End: 06-17-2017 Ambulatory Manish Abdoulaye Sanford [facility] Start: 06-14-2017 End: 06-14-2017 Emergency department patient visit Manish Mederos Mcjose roberto Facility:[facility] Procedures Date Procedure Procedure Detail Performing Clinician Start: 03-19-2024 Esophagogastroduodenoscopy COLTON THOMPSON Start: 03-05-2024 Comprehensive metabolic panel Sally jang PA-C Work Phone: Start: 03-05-2024 Ecg routine ecg w/least 12 lds trcg only w/o i&r Andreea Gandhi MD Work Phone: Start: 03-02-2024 Glucose quantitative blood xcpt reagent strip Brea Nolen MD Work Phone: Start: 03-02-2024 Glucose quantitative blood xcpt reagent strip Brea Nolen MD Work Phone: Start: 03-02-2024 Glucose quantitative blood xcpt reagent strip Brea Nolen MD Work Phone: Start: 03-02-2024 Basic metabolic panel calcium total Martha A Bourgeois-Seble EMERGENCY PLANNING AND RESPONSE MANAGER-INVESTOR RELATIONS DIRECTOR Work Phone: Start: 03-01-2024 Radiologic exam abdomen 1 view Chacho dotson MD Work Phone: Start: 03-01-2024 Glucose quantitative blood xcpt reagent strip Brea Nolen MD Work Phone: Start: 03-01-2024 Glucose quantitative blood xcpt reagent strip Brea Nolen MD Work Phone: Start: 03-01-2024 Glucose quantitative blood xcpt reagent strip Brea Nolen MD Work Phone: Start: 03-01-2024 Glucose quantitative blood xcpt reagent strip Brea Nolen MD Work Phone: Start: 03-01-2024 End: 03-01-2024 Basic metabolic panel calcium total Martha A Bourgeois-Seble EMERGENCY PLANNING AND RESPONSE MANAGER-INVESTOR RELATIONS DIRECTOR Work Phone: Start: 03-01-2024 Blood count complete automated Martha More EMERGENCY PLANNING AND RESPONSE MANAGER-INVESTOR RELATIONS DIRECTOR Work Phone: Start: 02-29-2024 End: 02-29-2024 Heparin assay Ana Wolfe MD Work Phone: Start: 02-29-2024 End: 02-29-2024 Heparin assay Ana Wolfe MD Work Phone: Start: 02-29-2024 End: 02-29-2024 Heparin assay Brea Nolen MD Work Phone: Start: 02-29-2024 Glucose quantitative blood xcpt reagent strip Brea Nolen MD Work Phone: Start: 02-29-2024 Basic metabolic panel calcium total Martha More EMERGENCY PLANNING AND RESPONSE MANAGER-INVESTOR RELATIONS DIRECTOR Work Phone: Start: 02-28-2024 Glucose quantitative blood xcpt reagent strip Brea Nolen MD Work Phone: Start: 02-28-2024 Glucose quantitative blood xcpt reagent strip Brea Nolen MD Work Phone: Start: 02-28-2024 Heparin assay Martha More EMERGENCY PLANNING AND RESPONSE MANAGER-INVESTOR RELATIONS DIRECTOR Work Phone: Start: 02-28-2024 Dup-scan xtr veins complete bilateral study Brea Nolen MD Work Phone: Start: 02-28-2024 Ecg routine ecg w/least 12 lds trcg only w/o i&r Brea Nolen MD Work Phone: Start: 02-28-2024 End: 02-28-2024 Heparin assay Brea Nolen MD Work Phone: Start: 02-28-2024 Echo tthrc r-t 2d w/wom-mode compl spec&colr d Brea Nolen MD Work Phone: Start: 02-28-2024 VACA TOP Mike Land MD Work Phone: Start: 02-28-2024 End: 02-28-2024 Comprehensive metabolic panel Brea esquivel MD Work Phone: Start: 02-28-2024 End: 02-28-2024 EXTRA TUBES Mike Land MD Work Phone: Start: 02-28-2024 LAVENDER TOP Mike Land MD Work Phone: Start: 02-28-2024 PST TOP Mike Land MD Work Phone: Start: 02-28-2024 SST TOP Mike Land MD Work Phone: Start: 02-27-2024 Ct angiography chest w/contrast/noncontrast Mike Land MD Work Phone: Start: 02-27-2024 Ct abdomen & pelvis w/contrast material Hemalatha Floreso PA-C Work Phone: Start: 02-27-2024 Urinalysis complete W Reflex Culture panel - Urine Hemalatha Floreso PA-C Work Phone: Start: 02-27-2024 Urnls dip stick/tablet reagent auto microscopy Hemalatha Karleehio PA-C Work Phone: Start: 02-27-2024 Basic metabolic panel calcium total Hemalatha Karleehio PA-C Work Phone: Start: 02-06-2024 Glucose [Mass/volume] in Serum or Plasma COLTON HICKS Start: 02-06-2024 C. DIFFICILE, PCR COLTON HICKS Start: 02-06-2024 STOOL PATHOGEN PANEL, PCR COLTON SINGER Start: 02-06-2024 OT EVAL AND TREAT COLTON HICKS Start: 02-06-2024 PT EVAL AND TREAT COLTON HICKS Start: 02-06-2024 IP CONSULT TO PAIN MANAGEMENT COLTON BOSCH Start: 02-06-2024 Glucose [Mass/volume] in Serum or Plasma COLTON HICKS Start: 02-06-2024 ADULT DIET COLTON HICKS Start: 02-06-2024 aPTT in Blood by Coagulation assay FRANCY HICKS Start: 02-06-2024 CBC W Auto Differential panel - Blood COLTON HICKS Start: 02-06-2024 Comprehensive metabolic 2000 panel - Serum or Plasma COLTON HICKS Start: 02-06-2024 Heparin assay COLTON HICKS Start: 02-06-2024 Magnesium [Mass/volume] in Serum or Plasma COLTON HICKS Start: 02-06-2024 Glucose [Mass/volume] in Serum or Plasma COLTON HICKS Start: 02-06-2024 POCT GLUCOSE METER COLTON HICKS Start: 02-05-2024 Heparin assay COLTON HICKS Start: 02-05-2024 Glucose [Mass/volume] in Serum or Plasma COLTON HICKS Start: 02-05-2024 POCT GLUCOSE METER COLTON HICKS Start: 02-05-2024 Heparin assay COLTON HICKS Start: 02-05-2024 Glucose [Mass/volume] in Serum or Plasma COLTON HICKS Start: 02-05-2024 DIETARY NUTRITION SUPPLEMENTS COLTON BOSCH Start: 02-05-2024 Glucose [Mass/volume] in Serum or Plasma COLTON HICKS Start: 02-05-2024 Basic metabolic 2000 panel - Serum or Plasma COLTON HICKS Start: 02-05-2024 CBC W Auto Differential panel - Blood COLTON HICKS Start: 02-05-2024 COAGULATION SCREEN COLTON HICKS Start: 02-05-2024 Heparin assay COLTON HICKS Start: 02-05-2024 Hepatic function 2000 panel - Serum or Plasma COLTON HICKS Start: 02-05-2024 Magnesium [Mass/volume] in Serum or Plasma COLTON HICKS Start: 02-05-2024 Phosphate [Mass/volume] in Serum or Plasma COLTON HICKS Start: 02-05-2024 POCT GLUCOSE METER COLTON HICKS Start: 02-04-2024 DIET INSTRUCTIONS TO NURSING COLTON LAMAS Start: 02-04-2024 NOTIFY PROVIDER (PROMPT FOR PARAMETERS) COLTON HICKS Start: 02-04-2024 NURSING COMMUNICATION COLTON HARDENANZARO Start: 02-04-2024 ECG 12-LEAD COLTON HARDENANZARO Start: 02-04-2024 Basic metabolic 2000 panel - Serum or Plasma COLTON KURT Start: 02-04-2024 C-reactive protein COLTON HARDENANZARO Start: 02-04-2024 CBC W Auto Differential panel - Blood COLTON HARDENANZARO Start: 02-04-2024 COAGULATION SCREEN COLTON KURT Start: 02-04-2024 Hepatic function 2000 panel - Serum or Plasma COLTON KURT Start: 02-04-2024 Lipase [Enzymatic activity/volume] in Serum or Plasma COLTON HICKS Start: 02-04-2024 LIPID PANEL NON-FASTING COLTON HICKS Start: 02-04-2024 Phosphate [Mass/volume] in Serum or Plasma COLTON HICKS Start: 02-04-2024 SEDIMENTATION RATE, AUTOMATED COLTON FINA BOSCH Start: 02-04-2024 TYPE AND SCREEN COLTON HICKS Start: 02-04-2024 Bacteria identified in Blood by Culture COLTON HICKS Start: 02-04-2024 Hemoglobin A1c/Hemoglobin.total in Blood COLTON HARDENANZARO Start: 02-04-2024 ACTIVITY COLTON KURT Start: 02-04-2024 ADMIT TO INPATIENT COLTONJuan HICKS Start: 02-04-2024 INSERT PERIPHERAL IV COLTON HARDENANZARO Start: 02-04-2024 MEASURE HEIGHT COLTON KURT Start: 02-04-2024 REASON FOR NO DVT PROPHYLAXIS - HOSPITAL ADMISSION - MEDICATIONS COLTON HICKS Start: 02-04-2024 SALINE LOCK IV COLTON HICKS Start: 02-04-2024 VITAL SIGNS COLTON KURT Start: 02-04-2024 WEIGH PATIENT COLTON HARDENANZARO Start: 02-04-2024 Glucose [Mass/volume] in Serum or Plasma COLTON HICKS Start: 02-04-2024 Lipid 1996 panel - Serum or Plasma Mike Land MD Work Phone: Start: 01-18-2024 TREATMENT CONDITIONS 2 KUTAIBA TABBAA Start: 01-18-2024 ONCBCN INFUSION APPOINTMENT REQUEST KUTAIBA TABBAA Start: 01-04-2024 TREATMENT CONDITIONS 2 KUTAIBA TABBAA Start: 12-21-2023 TREATMENT CONDITIONS 2 JOSELINTAIBA TABBAA Start: 12-08-2023 DISCHARGE PATIENT COLTON KURT Start: 12-08-2023 Glucose [Mass/volume] in Serum or Plasma COLTON KURT Start: 12-08-2023 Glucose quantitative blood xcpt reagent strip Nancy Agrawal MD Work Phone: Start: 12-08-2023 VASC US LOWER EXTREMITY VENOUS DUPLEX BILATERAL COLTONJuan HICKS Start: 12-08-2023 Dup-scan xtr veins complete bilateral study Nancy Agrawal MD Work Phone: Start: 12-08-2023 Glucose [Mass/volume] in Serum or Plasma COLTON KURT Start: 12-08-2023 Basic metabolic 2000 panel - Serum or Plasma COLTON HICKS Start: 12-08-2023 CBC W Auto Differential panel - Blood COLTON KURT Start: 12-08-2023 Hepatic function 2000 panel - Serum or Plasma COLTON HICKS Start: 12-08-2023 Magnesium [Mass/volume] in Serum or Plasma COLTON HICKS Start: 12-08-2023 Phosphate [Mass/volume] in Serum or Plasma COLTON KURT Start: 12-08-2023 PROTIME-INR COLTON KURT Start: 12-08-2023 Glucose quantitative blood xcpt reagent strip Nancy Agrawal MD Work Phone: Start: 12-08-2023 Comprehensive metabolic panel Andreea borja MD Work Phone: Start: 12-07-2023 Glucose [Mass/volume] in Serum or Plasma COLTON HICKS Start: 12-07-2023 Glucose quantitative blood xcpt reagent strip Nancy Agrawal MD Work Phone: Start: 12-07-2023 Glucose [Mass/volume] in Serum or Plasma COLTON HICKS Start: 12-07-2023 End: 12-07-2023 Glucose quantitative blood xcpt reagent strip Nancy Agrawal MD Work Phone: Start: 12-07-2023 FOLLOW-UP EDUCATION ORDER COLTON SINGER Start: 12-07-2023 NURSING COMMUNICATION COLTON HICKS Start: 12-07-2023 Glucose [Mass/volume] in Serum or Plasma COLTON VANARO Start: 12-07-2023 INITIATE OBSERVATION STATUS COLTON ESPINOZA Start: 12-07-2023 NURSING COMMUNICATION COLTON VANARO Start: 12-07-2023 Esophagogastroduodenoscopy COLTON THOMPSON Start: 12-07-2023 Glucose quantitative blood xcpt reagent strip Nancy Agrawal MD Work Phone: Start: 12-07-2023 CBC panel - Blood by Automated count COLTON VNAARO Start: 12-07-2023 STAPHYLOCOCCUS AUREUS/MRSA COLONIZATION, CULTURE COLTON VANARO Start: 12-07-2023 Esophagogastroduodenoscopy COLTON VAN JAY Start: 12-07-2023 Glucose [Mass/volume] in Serum or Plasma COLTON VANARO Start: 12-07-2023 End: 12-07-2023 Blood count complete automated Andreea boothe MD Work Phone: Start: 12-07-2023 Cul prsmptv pthgnc organism scrn w/colony estimj Andreea Gandhi MD Work Phone: Start: 12-07-2023 Basic metabolic 2000 panel - Serum or Plasma COLTON HARDENANZARO Start: 12-07-2023 CBC W Auto Differential panel - Blood COLTON VANARO Start: 12-07-2023 Hepatic function 2000 panel - Serum or Plasma COLTON HARDENANZARO Start: 12-07-2023 Magnesium [Mass/volume] in Serum or Plasma COLTON HARDENANZARO Start: 12-07-2023 Phosphate [Mass/volume] in Serum or Plasma COLTON HARDENANZARO Start: 12-07-2023 PROTIME-INR COLTON HARDENANZARO Start: 12-07-2023 Comprehensive metabolic panel Andreea borja MD Work Phone: Start: 12-07-2023 Heparin assay COLTON HICKS Start: 12-06-2023 Heparin assay Andreea Gandhi MD Work Phone: Start: 12-06-2023 Glucose [Mass/volume] in Serum or Plasma COLTON HICKS Start: 12-06-2023 Glucose quantitative blood xcpt reagent strip Nancy Agrawal MD Work Phone: Start: 12-06-2023 ECG 12-LEAD COLTON KURT Start: 12-06-2023 IP CONSULT TO VASCULAR MEDICINE COLTON Barreto JOHN Start: 12-06-2023 Glucose [Mass/volume] in Serum or Plasma COLTON KURT Start: 12-06-2023 Ecg routine ecg w/least 12 lds trcg only w/o i&r Andreea Gandhi MD Work Phone: Start: 12-06-2023 ECG 12-LEAD COLTON KURT Start: 12-06-2023 Glucose quantitative blood xcpt reagent strip Nancy Agrawal MD Work Phone: Start: 12-06-2023 Glucose [Mass/volume] in Serum or Plasma COLTON HARDENANZARO Start: 12-06-2023 CT ABDOMEN PELVIS W IV CONTRAST COLTON Estevan LOPEZ Start: 12-06-2023 Glucose quantitative blood xcpt reagent strip Nancy Agrawal MD Work Phone: Start: 12-06-2023 Ct abdomen & pelvis w/contrast material Johan Dru Burton MD Work Phone: Start: 12-06-2023 Basic metabolic 2000 panel - Serum or Plasma COLTON HARDENANZARO Start: 12-06-2023 CBC W Auto Differential panel - Blood COLTON KURT Start: 12-06-2023 COAGULATION SCREEN COLTON KURT Start: 12-06-2023 Magnesium [Mass/volume] in Serum or Plasma COLTON KURT Start: 12-06-2023 TYPE AND SCREEN COLTON HARDENANZARO Start: 12-06-2023 Basic metabolic panel calcium total Andreea Gandhi MD Work Phone: Start: 12-06-2023 Blood typing serologic rh (d) Andreea borja MD Work Phone: Start: 12-06-2023 Heparin assay COLTON HICKS Start: 12-06-2023 Heparin assay Andreea Gandhi MD Work Phone: Start: 12-05-2023 Glucose [Mass/volume] in Serum or Plasma COLTON HICKS Start: 12-05-2023 Glucose quantitative blood xcpt reagent strip Nancy Agrawal MD Work Phone: Start: 12-05-2023 CBC panel - Blood by Automated count COLTON VANARO Start: 12-05-2023 COAGULATION SCREEN COLTON HICKS Start: 12-05-2023 Comprehensive metabolic 2000 panel - Serum or Plasma COLTON HARDENANZARO Start: 12-05-2023 TYPE AND SCREEN COLTON HARDENANZARO Start: 12-05-2023 Blood typing serologic rh (d) Andreea borja MD Work Phone: Start: 12-05-2023 Comprehensive metabolic panel Andreea borja MD Work Phone: Start: 12-05-2023 Glucose [Mass/volume] in Serum or Plasma COLTON HARDENANZARO Start: 12-05-2023 MEASURE HEIGHT COLTON HARDENANZARO Start: 12-05-2023 WEIGH PATIENT COLTON HARDENANZARO Start: 12-05-2023 REASON FOR NO DVT PROPHYLAXIS - HOSPITAL ADMISSION - MEDICATIONS COLTON HARDENANZARO Start: 12-05-2023 Glucose quantitative blood xcpt reagent strip Nancy Agrawal MD Work Phone: Start: 12-05-2023 ADMIT TO INPATIENT COLTON KURT Start: 11-23-2023 TREATMENT CONDITIONS 2 KUTAIBA TABBAA Start: 11-23-2023 ONCBCN INFUSION APPOINTMENT REQUEST KUTAIBA TABBAA Start: 11-15-2023 Glucose [Mass/volume] in Serum or Plasma COLTON HICKS Start: 11-15-2023 Glucose quantitative blood xcpt reagent strip Chastity León MD Work Phone: Start: 11-15-2023 DISCHARGE PATIENT COLTON HARDENANZARO Start: 11-15-2023 ADULT DISCHARGE DIET COLTON HARDENANZARO Start: 11-15-2023 DISCHARGE ACTIVITY COLTON KURT Start: 11-15-2023 NOTIFY PROVIDER (DO NOT PROMPT FOR PARAMETERS) COLTON KURT Start: 11-15-2023 Glucose [Mass/volume] in Serum or Plasma COLTON HICKS Start: 11-15-2023 Glucose quantitative blood xcpt reagent strip Chastity León MD Work Phone: Start: 11-15-2023 Glucose [Mass/volume] in Serum or Plasma COLTON HICKS Start: 11-15-2023 Glucose quantitative blood xcpt reagent strip Chastity León MD Work Phone: Start: 11-15-2023 CBC panel - Blood by Automated count COLTON KURT Start: 11-15-2023 Comprehensive metabolic 2000 panel - Serum or Plasma COLTON KURT Start: 11-15-2023 Comprehensive metabolic panel Chastity lr MD Work Phone: Start: 11-15-2023 Glucose [Mass/volume] in Serum or Plasma COLTON KURT Start: 11-15-2023 Glucose quantitative blood xcpt reagent strip Chastity León MD Work Phone: Start: 11-14-2023 Glucose [Mass/volume] in Serum or Plasma COLTON HARDENANZARO Start: 11-14-2023 NURSING COMMUNICATION COLTON KRUT Start: 11-14-2023 ENDOSCOPIC ULTRASOUND (UPPER) COLTON FINA BOSCH Start: 11-14-2023 Endoscopic cathj pancreatic ductal sys rs&i Brittany Ruiz MD Work Phone: Start: 11-14-2023 CBC panel - Blood by Automated count COLTON HARDENANZARO Start: 11-14-2023 Comprehensive metabolic 2000 panel - Serum or Plasma COLTON KURT Start: 11-14-2023 Glucose [Mass/volume] in Serum or Plasma COLTON HICKS Start: 11-14-2023 End: 11-14-2023 Comprehensive metabolic panel Chastity lr MD Work Phone: Start: 11-14-2023 Glucose [Mass/volume] in Serum or Plasma COLTON HICKS Start: 11-14-2023 Glucose quantitative blood xcpt reagent strip Chastity León MD Work Phone: Start: 11-13-2023 Glucose [Mass/volume] in Serum or Plasma COLTON HICKS Start: 11-13-2023 Glucose quantitative blood xcpt reagent strip Chastity León MD Work Phone: Start: 11-13-2023 Glucose [Mass/volume] in Serum or Plasma COLTON KURT Start: 11-13-2023 Glucose quantitative blood xcpt reagent strip Chastity León MD Work Phone: Start: 11-13-2023 Glucose [Mass/volume] in Serum or Plasma COLTON HARDENANZARO Start: 11-13-2023 Glucose quantitative blood xcpt reagent strip Chastity León MD Work Phone: Start: 11-13-2023 Glucose [Mass/volume] in Serum or Plasma COLTON HARDENANZARO Start: 11-13-2023 Glucose quantitative blood xcpt reagent strip Chastity León MD Work Phone: Start: 11-13-2023 Glucose [Mass/volume] in Serum or Plasma COLTON HARDENANZARO Start: 11-13-2023 Magnesium [Mass/volume] in Serum or Plasma COLTON HICKS Start: 11-13-2023 RENAL FUNCTION PANEL COLTONJuan HICKS Start: 11-13-2023 End: 11-13-2023 Renal function panel Adelina Og DO Work Phone: Start: 11-13-2023 Glucose [Mass/volume] in Serum or Plasma COLTONJuan HICKS Start: 11-13-2023 CBC W Auto Differential panel - Blood COLTON HARDENANZARO Start: 11-13-2023 Heparin assay COLTONJuan HICKS Start: 11-13-2023 End: 11-13-2023 Heparin assay Adelina Og DO Work Phone: Start: 11-12-2023 Heparin assay COLTON HARDENANZARO Start: 11-12-2023 Glucose [Mass/volume] in Serum or Plasma COLTON HICKS Start: 11-12-2023 Heparin assay Adelina Og DO Work Phone: Start: 11-12-2023 Glucose quantitative blood xcpt reagent strip Adelina Og DO Work Phone: Start: 11-12-2023 Glucose [Mass/volume] in Serum or Plasma COLTON HICKS Start: 11-12-2023 Bacteria identified in Urine by Culture COLTON HICKS Start: 11-12-2023 EXTRA URINE VACA TUBE COLTON HICKS Start: 11-12-2023 URINALYSIS WITH REFLEX CULTURE AND MICROSCOPIC COLTON HICKS Start: 11-12-2023 Glucose quantitative blood xcpt reagent strip Adelina Og DO Work Phone: Start: 11-12-2023 Culture bacterial quanttative colony count urine Adelina Og DO Work Phone: Start: 11-12-2023 Heparin assay Adelina Og DO Work Phone: Start: 11-12-2023 EXTRA URINE VACA TUBE Jaret Damico MD Work Phone: Start: 11-12-2023 Urinalysis complete W Reflex Culture panel - Urine Jaret Damico MD Work Phone: Start: 11-12-2023 Urnls dip stick/tablet rgnt auto w/o microscopy Jaret Damico MD Work Phone: Start: 11-12-2023 Glucose [Mass/volume] in Serum or Plasma COLTON HICKS Start: 11-12-2023 Heparin assay COLTON HICKS Start: 11-12-2023 End: 11-12-2023 Heparin assay Adelina Og DO Work Phone: Start: 11-12-2023 CBC panel - Blood by Automated count COLTON HICKS Start: 11-12-2023 Heparin assay COLTON HICKS Start: 11-12-2023 Magnesium [Mass/volume] in Serum or Plasma COLTON HICKS Start: 11-12-2023 RENAL FUNCTION PANEL COLTON HICKS Start: 11-12-2023 Glucose [Mass/volume] in Serum or Plasma COLTON HICKS Start: 11-12-2023 End: 11-12-2023 Renal function panel Adelina Og DO Work Phone: Start: 11-12-2023 Glucose [Mass/volume] in Serum or Plasma COLTON HICKS Start: 11-12-2023 Heparin assay COLTON HICKS Start: 11-12-2023 Glucose [Mass/volume] in Serum or Plasma COLTON KURT Start: 11-11-2023 End: 11-12-2023 Heparin assay Adelina Og DO Work Phone: Start: 11-11-2023 Glucose quantitative blood xcpt reagent strip Adelina Og DO Work Phone: Start: 11-11-2023 Glucose [Mass/volume] in Serum or Plasma COLTONJuan HICKS Start: 11-11-2023 End: 11-11-2023 Heparin assay Adelina Og DO Work Phone: Start: 11-11-2023 aPTT in Blood by Coagulation assay FRANCY Juan HICKS Start: 11-11-2023 CBC panel - Blood by Automated count COLTONJuan HICKS Start: 11-11-2023 PROTIME-INR COLTONJuan HICKS Start: 11-11-2023 Glucose [Mass/volume] in Serum or Plasma COLTONJuan HICKS Start: 11-11-2023 End: 11-11-2023 Blood count complete automated Adelina Og DO Work Phone: Start: 11-11-2023 DRUG SCREEN,URINE COLTONJuan HICKS Start: 11-11-2023 Glucose [Mass/volume] in Serum or Plasma COLTONJuan HICKS Start: 11-11-2023 Drug tst prsmv instrmnt chem analyzers pr date Nancy Benedict EMERGENCY PLANNING AND RESPONSE MANAGER-INVESTOR RELATIONS DIRECTOR Work Phone: Start: 11-11-2023 IP CONSULT TO GASTROENTEROLOGY COLTON REILLY Start: 11-11-2023 Glucose quantitative blood xcpt reagent strip Molina Guardado MD MPH Work Phone: Start: 11-11-2023 Glucose [Mass/volume] in Serum or Plasma COLTON HICKS Start: 11-11-2023 Glucose quantitative blood xcpt reagent strip Mirna Calvo MD Work Phone: Start: 11-11-2023 Glucose [Mass/volume] in Serum or Plasma COLTON HICKS Start: 11-11-2023 Glucose quantitative blood xcpt reagent strip Mirna Calvo MD Work Phone: Start: 11-11-2023 Glucose [Mass/volume] in Serum or Plasma [facility] Start: 11-11-2023 FULL CODE [facility] HICKS Start: 11-11-2023 REASON FOR NO DVT PROPHYLAXIS - HOSPITAL ADMISSION - MEDICATIONS [facility] Start: 11-11-2023 TELEMETRY MONITORING COLTON HICKS Start: 11-11-2023 ADMIT TO INPATIENT COLTON VANARO Start: 11-11-2023 ED TO FLOOR BED REQUEST COLTON HARDENANZARO Start: 11-10-2023 Glucose quantitative blood xcpt reagent strip Adelina Og DO Work Phone: Start: 11-10-2023 CT ABDOMEN PELVIS W IV CONTRAST COLTON Barreto ANAFREDERICKENMANUEL Start: 11-10-2023 POCT , URINE COLTON VANARO Start: 11-10-2023 BLOOD GAS LACTIC ACID, VENOUS COLTON BOSCH Start: 11-10-2023 ECG 12-LEAD COLTON HARDENANZARO Start: 11-10-2023 Ct abdomen & pelvis w/contrast material Khurram Stuart MD Work Phone: Start: 11-10-2023 Urine test visual color cmprsn meths Chi Galvin MD Work Phone: Start: 11-10-2023 Assay of lactate Chi Galvin MD Work Phone: Start: 11-10-2023 Ecg routine ecg w/least 12 lds trcg only w/o i&r Chi Galvin MD Work Phone: Start: 11-10-2023 CBC W Auto Differential panel - Blood COLTON HARDENANZARO Start: 11-10-2023 Comprehensive metabolic 2000 panel - Serum or Plasma COLTON HARDENANZARO Start: 11-10-2023 Hemoglobin A1c/Hemoglobin.total in Blood COLTON HARDENANZARO Start: 11-10-2023 Lipase [Enzymatic activity/volume] in Serum or Plasma COLTON HARDENANZARO Start: 11-10-2023 BLOOD GAS VENOUS FULL PANEL UNSOLICITED COLTON HARDENANZARO Start: 11-10-2023 End: 11-10-2023 Chloride bld Chi Galvin MD Work Phone: Start: 11-09-2023 MRCP PANCREAS W AND WO IV CONTRAST KUTAI BA TABBAA Start: 11-09-2023 Mri abdomen w/o & w/contrast material Colton Hicks MD Work Phone: Start: 11-09-2023 TREATMENT CONDITIONS 2 KUTAIBA TABBAA Start: 11-09-2023 ONCBCN INFUSION APPOINTMENT REQUEST KUTAIBA TABBAA Start: 10-27-2023 TREATMENT CONDITIONS 2 KUTAIBA TABBAA Start: 10-18-2023 DISCHARGE PATIENT [facility] HICKS Start: 10-18-2023 IR CVC CHECK [facility] HICKS Start: 10-18-2023 RF Unspecified body region Views for central venous catheter placement check Shantell Rossi EMERGENCY PLANNING AND RESPONSE MANAGER-INVESTOR RELATIONS DIRECTOR Work Phone: Start: 10-12-2023 TREATMENT CONDITIONS 2 KUTAIBA TABBAA Start: 09-28-2023 ONC NURSING COMMUNICATION - HYPERSENSITIVITY MANAGEMENT, MODERATE KUTAIBA TABBAA Start: 09-28-2023 TREATMENT CONDITIONS 2 KUTAIBA TABBAA Start: 09-06-2023 PULSE OXIMETRY, CONTINUOUS KUTAIBA TABBA A Start: 09-06-2023 ONC NURSING COMMUNICATION - HYPERSENSITIVITY MANAGEMENT, MODERATE KUTAIBA TABBAA Start: 09-06-2023 TREATMENT CONDITIONS 2 KUTAIBA TABBAA Start: 09-06-2023 POCT , URINE KUTAIBA TABBAA Start: 08-26-2023 IR CVC PORT PLACEMENT [facility] HICKS Start: 08-26-2023 Guidance for placement of CV catheter with port in Chest Tianna Rasmussen MD Work Phone: Start: 08-23-2023 ONC NURSING COMMUNICATION - HYPERSENSITIVITY MANAGEMENT, MODERATE KUTAIBA TABBAA Start: 08-23-2023 PULSE OXIMETRY, CONTINUOUS KUTAIBA TABBA A Start: 08-23-2023 TREATMENT CONDITIONS 2 KUTAIBA TABBAA Start: 08-23-2023 POCT , URINE KUTAIBA TABBAA Start: 08-03-2023 CBC panel - Blood by Automated count [facility]ICKS Start: 08-03-2023 Comprehensive metabolic 1999 panel - Serum or Plasma COLTON KURT Start: 08-03-2023 IGG 4 COLTON KURT Start: 08-03-2023 Lipase [Enzymatic activity/volume] in Serum or Plasma [facility]KS Start: 07-27-2023 TREATMENT CONDITIONS 2 KUTAIBA TABBAA Start: 07-05-2023 CT ABDOMEN PELVIS W IV CONTRAST KUTAIBA TABBAA Start: 07-05-2023 EXTRA TUBES KUTAIBA TABBAA Start: 07-05-2023 PST TOP KUTAIBA TABBAA Start: 07-05-2023 CBC W Auto Differential panel - Blood KUTAIBA TABBAA Start: 07-05-2023 Comprehensive metabolic 1999 panel - Serum or Plasma KUTAIBA TABBAA Start: 07-05-2023 Lipase [Enzymatic activity/volume] in Serum or Plasma KUTAIBA TABBAA Start: 07-05-2023 URINALYSIS WITH REFLEX MICROSCOPIC AND CULTURE KUTAIBA TABBAA Start: 07-05-2023 INSERT PERIPHERAL IV KUTAIBA TABBAA Start: 06-18-2023 Glucose [Mass/volume] in Serum or Plasma [facility] Start: 06-18-2023 Glucose quantitative blood xcpt reagent strip Chastity León MD Work Phone: Start: 06-18-2023 CUTOVER ADMIT TO INPATIENT COLTON THOMPSON Start: 06-16-2023 C-reactive protein [facility]KS Start: 06-16-2023 CBC panel - Blood by Automated count [facility] Start: 06-16-2023 Comprehensive metabolic 1999 panel - Serum or Plasma [facility] Start: 06-16-2023 C reactive protein [Mass/volume] in Serum or Plasma Chastity León MD Work Phone: Start: 06-16-2023 Complete blood count Chastity León MD Work Phone: Start: 06-16-2023 Comprehensive metabolic panel Chastity lr MD Work Phone: Start: 06-15-2023 DRUG SCREEN,URINE [facility]KS Start: 06-15-2023 URINALYSIS WITH REFLEX MICROSCOPIC FRANCY HICKS Start: 06-15-2023 DRUG SCREEN,URINE Chastity eLón MD Work Phone: Start: 06-15-2023 Urinalysis Angela Miles MD Work Phone: Start: 06-15-2023 CT ABDOMEN PELVIS W IV CONTRAST COLTON LOPEZ Start: 06-15-2023 Ct abdomen & pelvis w/contrast material Angela Miles MD Work Phone: Start: 06-14-2023 Electrocardiogram [facility]KS Start: 06-14-2023 SARS-COV-2 PCR [facility] Start: 06-14-2023 C-reactive protein [facility] HICKS Start: 06-14-2023 CBC W Auto Differential panel - Blood [facility]ICKS Start: 06-14-2023 Comprehensive metabolic 2000 panel - Serum or Plasma [facility]ICKS Start: 06-14-2023 Lipase [Enzymatic activity/volume] in Serum or Plasma [facility] Start: 06-14-2023 ELECTROCARDIOGRAM 12 LEAD Angela amaya MD Work Phone: Start: 06-14-2023 SARS-CoV-2 (COVID-19) RNA [Presence] in Respiratory specimen by SANNA with probe detection Angela Miles MD Work Phone: Start: 06-14-2023 C reactive protein [Mass/volume] in Serum or Plasma Pino Early DO Work Phone: Start: 06-14-2023 Comprehensive metabolic panel Pino Early DO Work Phone: Start: 06-14-2023 Lipase [Enzymatic activity/volume] in Serum or Plasma Angela Miles MD Work Phone: Start: 05-13-2023 End: 05-13-2023 VASC Access Team Restart Line Order PeripheralIV Therapy Terry Y Alsallamin Start: 04-03-2023 Lipid 1996 panel - Serum or Plasma Solange Davies DO Work Phone: Start: 08-31-2020 Prescription event monitoring CHRYSTAL EMERY EMERGENCY PLANNING AND RESPONSE MANAGER-INVESTOR RELATIONS DIRECTOR Comment on above: Symptomatic PAC and sinus tachycardia wi th light activity Start: 08-07-2020 Cardiovascular stress testing CHRYSTAL SANTILLAN EMERGENCY PLANNING AND RESPONSE MANAGERMirageWorks Comment on above: No evidence of ischemia or prior infarct ion. Breast attenuation artifact seen. Normal systolic function with EF 70%. No prior studies available for comparison. Start: 02-14-2020 Echocardiography CHRYSTAL GAVIRIA EMERGENCY PLANNING AND RESPONSE MANAGERMirageWorks Comment on above: EF 60-65%, cavity size nl.Systolic funct ion nl. Wall motion nl. There are no miguelito wall motion abnormalities. Normal diastolic function. Right ventricle the cavity size is mildly increased. Systolic function is reduced. The RV systolic pressure by Doppler is 18 mm Hg. Right atrium: the estimated right atrial pressure is 8 mm Hg. Pericardiuum estracardiac at trivial pericardial effusion is identified. Start: 01-20-2018 Echocardiography CHRYSTAL GAVIRIA EMERGENCY PLANNING AND RESPONSE MANAGER[employer] Comment on above: Atrial septum: Agitated saline contrast study shows no atrial level shunt. Left ventricle: The cavity size is normal. Wall thickness is normal. systolic function is normal. The estimated EF is 60-65%. Wall motion is normal; there are no regional wall motion abnormalities. Start: 01-17-2018 Echocardiography CHRYSTAL GAVIRIA EMERGENCY PLANNING AND [employer]PONSE MA[employer]GER[employer] Comment on above: EF 55-60% Mitral valve is mildly calcifi ed. The leaflets are moderately thickened. Right ventricle: the cavity size is mildly increased. Right atrium is mildly dilated. Atrium septum, POOR QUALITY BUBBLE STUDY. CANT INTERPRET WITH REASONABLE CERTAINITY.NEEDS REPEATED OR RECOMMEND NADIR TO ASSESS FOR INTERATRIAL SHUNT. Abdominal hysterectomy JUAN LUIS GAVIRIA EMERGENCY PLANNING AND RESPONSE MANAGERMirageWorks Appendectomy CHRYSTAL GAVIRIA EMERGENCY PLANNING AND RESPONSE MANAGER[employer] section CHRYSTAL FIS H EMERGENCY PLANNING AND RESPONSE MANAGERMirageWorks section CHRYSTAL FIS H EMERGENCY PLANNING AND RESPONSE MANAGER[employer] Cholecystectomy CHRYSTAL GAVIRIA EMERGENCY PLANNING AND RESPONSE MANAGERMir[employer] Endoscopic retrograd e cholangiopancreatography CHRYSTAL GAVIRIA EMERGENCY PLANNING AND RESPONSE MANAGER-INVESTOR RELATIONS DIRECTOR Filter, device (physical object) CHRYSTAL GAVIRIA EMERGENCY PLANNING AND RESPONSE MANAGER-INVESTOR RELATIONS DIRECTOR Comment on above: IVC Tonsillectomy CHRYSTAL GAVIRIA EMERGENCY PLANNING AND RESPONSE MANAGER-INVESTOR RELATIONS DIRECTOR Plan of Treatment Date Care Activity Detail Author Start: 02-03-2029 Lipid panel Lipid Screening [facility] Start: 04-03-2028 Lipid panel Lipid Panel [facility] Start: 06-04-2027 Diabetes Screening Diabetes Screening [facility] Start: 05-30-2027 Diabetes Screening Diabetes Screening [facility] Start: 03-05-2025 Creatinine measurement Creatinine Level [facility] Start: 03-05-2025 Potassium measurement Potassium Level [facility] Start: 03-02-2025 Creatinine measurement Creatinine Level [facility] Start: 03-02-2025 Potassium measurement Potassium Level [facility] Start: 02-27-2025 Echocardiography Echocardiogram [facility] Start: 02-03-2025 Lipid panel Lipid Panel [facility] Start: 2024 Zoster Vaccines (1 of 2) Zoster Vaccines (1 of 2) [facility] Start: 12-07-2024 Creatinine measurement Creatinine Level [facility] Start: 12-07-2024 Potassium measurement Potassium Level [facility] Start: 12-05-2024 Creatinine measurement Creatinine Level [facility] Start: 12-05-2024 Potassium measurement Potassium Level [facility] Start: 12-04-2024 Creatinine measurement Creatinine Level [facility] Start: 12-04-2024 Potassium measurement Potassium Level [facility] Start: 11-15-2024 Creatinine measurement Creatinine Level [facility] Start: 11-15-2024 Potassium measurement Potassium Level [facility] Start: 11-10-2024 Creatinine measurement Creatinine Level [facility] Start: 11-10-2024 Diabetes mellitus screening Diabetes Screening [facility] Start: 11-10-2024 Potassium measurement Potassium Level [facility] Start: 08-03-2024 Creatinine measurement Creatinine Level [facility] Start: 08-03-2024 Potassium measurement Potassium Level [facility] Start: 07-05-2024 Creatinine measurement Creatinine Level [facility] Start: 07-05-2024 Potassium measurement Potassium Level [facility] Start: 06-18-2024 Diabetes mellitus screening Diabetes Screening [facility] Start: 06-16-2024 Creatinine measurement Creatinine Level [facility] Start: 06-16-2024 Potassium measurement Potassium Level [facility] Start: 05-21-2024 DIABETES SCREEN DIABETES SCREEN [facility] Start: 05-21-2024 Diabetes Screening Diabetes Screening [facility] Start: 05-20-2024 Covid-19 Vaccine ( season) Covid-19 Vaccine () [facility] Start: 05-20-2024 Covid-19 Vaccine () Covid-19 Vaccine () [facility] Start: 05-20-2024 Influenza vaccination [facility] Start: 05-16-2024 End: 05-16-2024 Patient encounter procedure 05/16/2024 10:00 AM EDT Office Visit [facility] [address] [facility] [address] [place] [address] [place] [address] [address] Department [place] [address] [facility] Start: 05-06-2024 Hemoglobin A1c measurement Diabetes: Hemoglobin A1C [facility] Start: 04-25-2024 End: 04-25-2024 Patient encounter procedure 04/25/2024 8:30 AM EDT Infusion [facility] [address] [place] [address] [facility] Start: 04-11-2024 End: 04-11-2024 Patient encounter procedure 04/11/2024 10:00 AM EDT Infusion [facility] [address] [place] [address] [facility] Start: 04-09-2024 End: 04-09-2024 Patient encounter procedure 04/09/2024 11:00 AM EDT Office Visit [facility] [address] [facility] [address] [place] [address] [place] [address] [address] Department [place] [address] [facility] Start: 04-05-2024 End: 04-05-2024 Patient encounter procedure 04/05/2024 3:15 PM EDT Office Visit [facility] [address] [place] [address] Paul Virgen PA-C [address] [facility] [address] [place] [id number] [facility] Start: 04-04-2024 Creatinine measurement Creatinine Level [facility] Start: 04-04-2024 Potassium measurement Potassium Level [facility] Start: 04-03-2024 Lipid panel Lipid Panel [facility] Start: 03-28-2024 End: 03-28-2024 Patient encounter procedure 03/28/2024 7:30 AM EDT Infusion [facility] [address] [place] [address] [facility] Start: 03-14-2024 End: 03-14-2024 Patient encounter procedure 03/14/2024 8:00 AM EDT Infusion [facility] [address] [place] [address] [facility] Start: 03-09-2024 End: 03-09-2024 Patient encounter procedure 03/09/2024 2:20 PM EDT Office Visit [facility] [address] [facility] [address] [place] [phone] [place] [address] [address] Department [place] [address] [facility] Start: 03-08-2024 End: 03-08-2024 Patient encounter procedure 03/08/2024 1:20 PM EDT Office Visit [facility] [address] [facility] [address] [place] [phone] [place] [address] [address] Department [place] [address] [facility] Start: 02-29-2024 End: 02-29-2024 Patient encounter procedure 02/29/2024 10:00 AM EDT Infusion [facility] [address] [place] [phone] [facility] Start: 02-21-2024 End: 02-21-2024 Telemedicine consultation with patient 02/21/2024 2:15 PM EDT Telemedicine [facility] [address] [facility] [address] [place] [phone] [place] [address] [place] [address] [facility] Start: 02-15-2024 End: 02-15-2024 Patient encounter procedure [facility] Start: 02-08-2024 Hemoglobin A1c measurement Diabetes: Hemoglobin A1C [facility] Start: 02-08-2024 End: 02-08-2024 Patient encounter procedure 02/08/2024 11:00 AM EDT Office Visit [facility] [address] [facility] [address] [place] [address] [place] [address] [address] Department [place] [address] [facility] Start: 02-01-2024 End: 02-01-2024 Patient encounter procedure 02/01/2024 8:30 AM EDT Infusion [facility] [address] [place] [phone] [facility] Start: 01-18-2024 End: 01-18-2024 Patient encounter procedure 01/18/2024 8:30 AM EDT Infusion [facility] [address] [place] [address] [facility] Start: 01-04-2024 End: 01-04-2024 Telemedicine consultation with patient 01/04/2024 1:00 PM EDT Telemedicine [facility] [place] [address] [place] [address] [place] [address] [place] [address] [facility] Start: 01-04-2024 End: 01-04-2024 Patient encounter procedure [facility] Start: 12-21-2023 End: 12-21-2023 Patient encounter procedure 12/21/2023 8:00 AM EDT Infusion [facility] [address] [place] [address] [facility] Start: 12-07-2023 End: 12-07-2023 Patient encounter procedure 12/07/2023 7:30 AM EDT Infusion [facility] [address] [place] [address] [facility] Start: 11-23-2023 End: 11-23-2023 Patient encounter procedure 11/23/2023 8:00 AM EST Infusion [facility] [address] [place] [address] [facility] Start: 11-09-2023 End: 11-09-2023 Patient encounter procedure 11/09/2023 10:15 AM EST Appointment [facility] [address] [place] [address] [facility] Start: 11-09-2023 End: 11-09-2023 Patient encounter procedure 11/09/2023 8:30 AM EST Infusion [facility] [address] [place] [address] [facility] Start: 10-27-2023 End: 10-27-2023 Patient encounter procedure [facility] Start: 10-12-2023 End: 10-12-2023 Patient encounter procedure [facility] Start: 09-28-2023 End: 09-28-2023 Patient encounter procedure 09/28/2023 8:00 AM EST Infusion [facility] [address] [place] [address] [facility] Start: 09-06-2023 End: 09-06-2023 Patient encounter procedure 09/06/2023 1:00 PM EST Infusion [facility] [address] [place] [address] [facility] Start: 08-23-2023 End: 08-23-2023 Patient encounter procedure 08/23/2023 8:00 AM EST Infusion [facility] [address] [place] [address] [facility] Start: 08-03-2023 End: 08-03-2024 CBC panel - Blood by Automated count CBC Lab Routine Chronic pancreatitis, unspecified pancreatitis type (CMS/HCC) Expected: 08/03/2023 (Approximate), Expires: 08/03/2024 [facility] Work Phone: Comment on above: Expected: 08/03/2023 (Approximate), Expi res: 08/03/2024 Start: 08-03-2023 End: 08-03-2024 Comprehensive metabolic 2000 panel - Serum or Plasma Comprehensive Metabolic Panel Lab Routine Chronic pancreatitis, unspecified pancreatitis type (CMS/HCC) Expected: 08/03/2023 (Approximate), Expires: 08/03/2024 [facility] Work Phone: Comment on above: Expected: 08/03/2023 (Approximate), Expi res: 08/03/2024 Start: 08-03-2023 End: 08-03-2024 IgG subclass 4 [Mass/volume] in Serum IgG4 Lab Routine Chronic pancreatitis, unspecified pancreatitis type (CMS/HCC) Expected: 08/03/2023 (Approximate), Expires: 08/03/2024 [facility] Work Phone: Comment on above: Expected: 08/03/2023 (Approximate), Expi res: 08/03/2024 Start: 08-03-2023 End: 08-03-2024 Lipase [Enzymatic activity/volume] in Serum or Plasma Lipase Lab Routine Chronic pancreatitis, unspecified pancreatitis type (CMS/HCC) Expected: 08/03/2023 (Approximate), Expires: 08/03/[address] [facility] Service Area Work Phone: Comment on above: Expected: 08/03/2023 (Approximate), Expi res: 08/03/2024 Start: 07-19-2023 [id number], Provider: [facility] INFUSION ROOM 01,[id number], Status: Pen, Time: 12:30 PM [id number], Provider: PARMA [facility] INFUSION ROOM 01,[id number], Status: Pen, Time: 12:30 PM [facility] Work Phone: Start: 07-19-2023 Patient encounter procedure [facility] Start: 07-19-2023 End: 07-19-2023 Patient encounter procedure 07/19/2023 12:30 PM EDT Infusion [facility] [address] [place] [phone] [facility] Start: 07-06-2023 NPV, Provider: Colton Hicks, Status: Pen, Time: 9:40 AM NPV, Provider: Colton Hicks, Status: Pen, Time: 9:40 AM [facility] Work Phone: Start: 07-06-2023 Patient encounter procedure [facility] Start: 07-06-2023 End: 07-06-2023 Patient encounter procedure 07/06/2023 9:40 AM EDT Office Visit [facility] [address] [facility] [address] [place] [address] [place] [address] [address] Department [place] [address] [facility] Start: 07-05-2023 [id number], Provider: PARMA [facility] INFUSION ROOM 02,[id number], Status: Pen, Time: 1:30 PM [id number], Provider: PARMA [facility] INFUSION ROOM 02,[id number], Status: Pen, Time: 1:30 PM [facility] Work Phone: Start: 07-05-2023 Patient encounter procedure [facility] Start: 07-05-2023 End: 07-05-2023 Patient encounter procedure 07/05/2023 1:30 PM EDT Infusion [facility] [address] [place] [address] [facility] Start: 06-17-2023 End: 06-17-2024 Rivaroxaban . ; Tablet (XARELTO)DOSE = 10 mg Oral Daily Start: 17-Jun-2023 End: 16-Jun-2024 Ordered: 17-Jun-2023 Sangeeta Yu Intent [facility] Start: 06-15-2023 End: 06-15-2024 Ondansetron Injectable 4 mg IntraVenous Push Every 6 Hours PRN ; (ZOFRAN)DOSE = 4 mg IntraVenous Push Every 6 Hours, PRN Nausea and/or Vomiting Start: 15-Jun-2023 End: 14-Jun-2024 Ordered: 15-Jun-2023 Chastity León Intent [facility] Start: 06-15-2023 End: 06-15-2024 Nicotine 7 mg/ 24 hour TransDermal 1 patch Every 24 Hours ; Film, Extended Release (NICODERM)DOSE = 1 patch TransDermal Every 24 HoursNotes from Pharmacy: [facility] Start: 15-Jun-2023 End: 14-Jun-2024 Ordered: 15-Jun-2023 Nancy Benedict Intent [facility] Start: 06-15-2023 End: 06-15-2024 [facility] Start: 05-25-2023 Patient encounter procedure [facility] Start: 05-20-2023 COVID-19 Vaccine (1 - 2023-24 season) COVID-19 Vaccine ( season) [facility] Start: 05-20-2023 Influenza vaccination [facility] Start: 05-18-2023 Patient encounter procedure [facility] Start: 05-16-2023 End: 05-16-2024 Benzonatate 100 mg Oral Capsule 3 Times a Day ; Capsule (TESSALON PERLES)DOSE = 100 mg Oral 3 Times a Day, PRN Cough Start: 16-May-2023 End: 15-May-2024 Ordered: 16-May-2023 Adelina Thompson Intent [facility] Start: 05-15-2023 End: 05-15-2024 Sore Throat Lozenge 1 Oral Lozenge Every 2 Hours PRN ; LozengeDOSE = 1 lozenge(s) Oral Every 2 Hours, PRN Sore ThroatCa lozenge(s)/DOSE x 1 = 1 lozenge(s)/Dose (Daily Total is 12 lozenge(s)) Start: 15-May-2023 End: 14-May-2024 Ordered: 15-May-2023 Alsallamin Terry Y Intent [facility] Start: 05-14-2023 End: 05-17-2023 Iohexol (Omnipaque 350-Radiology Contrast) . ; (OMNIPAQUE)DOSE = 144 mL IntraVenous Push OnceCa.5 mL/Kg/DOSE x 96 Kg = 144 mL/Dose (Daily Total is 144 mL)LABS: Blood Urea Nitrogen, Serum,17,13-May-2023 21:14:36 Creatinine, Serum,0.75,13-May-2023 21:14:36 Start: 14-May-2023 End: 16-May-2023 Ordered: 14-May-2023 Jaret Mora Intent [facility] Start: 05-13-2023 End: 05-13-2024 Prochlorperazine 10 mg Oral Tablet Every 8 Hours PRN ; Tablet (COMPAZINE)DOSE = 10 mg Oral Every 8 Hours, PRN severe nausea or vomitingClinician Notes: Avoid if any signs of extrapyramidal or abnormal movements Start: 13-May-2023 End: 12-May-2024 Ordered: 13-May-2023 Terry Kaiser Y Intent Comments: Avoid if any signs of extrapyramidal or abnormal movements [facility] Comment on above: Avoid if any signs of extrapyramidal or abnormal movements Start: 05-13-2023 End: 05-12-2024 [facility] Comment on above: With food Start: 05-12-2023 End: 05-12-2024 Sodium Chloride 0.9% Injectable Flush Peripheral Line ; via Peripheral LineVolume = 10 mL IntraVenous Flush Every 8 Hours and as Needed Start: 12-May-2023 End: 11-May-2024 Ordered: 12-May-2023 Nancy Benedict Intent [facility] Start: 05-12-2023 End: 05-15-2023 Iohexol (Omnipaque 350-Radiology Contrast) . ; (OMNIPAQUE)DOSE = 144 mL IntraVenous Push OnceCa.5 mL/Kg/DOSE x 96 Kg = 144 mL/Dose (Daily Total is 144 mL)LABS: Blood Urea Nitrogen, Serum,17,12-May-2023 11:41:52 Creatinine, Serum,0.86,12-May-2023 11:41:52 Start: 12-May-2023 End: 14-May-2023 Ordered: 12-May-2023 Gurmeet Patel Intent [facility] Start: 05-04-2023 Patient encounter procedure [facility] Start: 04-27-2023 End: 04-27-2024 Nicotine Transmucosal 4 mg Oral Gum Every 4 Hours PRN ; Gum (NICORETTE)DOSE = 4 mg Oral Every 2 Hours, PRN tobacco cravingsNotes from Pharmacy: [facility] Start: 27-Apr-2023 End: 26-Apr-2024 Ordered: 27-Apr-2023 Terry Kaiser Intent [facility] Start: 04-26-2023 End: 04-26-2024 diphenhydrAMINE Injectable 25 mg IntraVenous Push Every 4 Hours PRN ; (BENADRYL)DOSE = 25 mg IntraVenous Push Every 4 Hours, PRN allergy, itching, nasea Start: 26-Apr-2023 End: 25-Apr-2024 Ordered: 26-Apr-2023 Terry Kaiser Y Intent [facility] Start: 04-26-2023 End: 04-26-2024 [facility] Start: 08-25-2022 BP CONTROLLED (<130/80) BP CONTROLLED (<130/80) [facility] Start: 05-20-2022 Influenza vaccination [facility] Start: 12-21-2019 COLOGUARD (FIT-DNA) COLOGUARD (FIT-DNA) [facility] Start: 12-21-2019 Colonoscopy COLONOSCOPY [facility] Start: 12-21-2019 COLORECTAL CANCER SCREENING COLORECTAL CANCER SCREENING [facility] Start: 12-21-[address] COLONOGRAPHY [facility] Start: 12-21-2019 FECAL OCCULT BLOOD FECAL OCCULT BLOOD [facility] Start: 12-21-2019 Lipid 1996 panel - Serum or Plasma Lipid Screening [facility] Start: 12-21-2019 LIPID SCREEN LIPID SCREEN [facility] Start: 12-21-2019 Screening for malignant neoplasm of colon [facility] Start: 12-21-2019 SIGMOIDOSCOPY SIGMOIDOSCOPY [facility] Start: 2014 Mammography [facility] Start: 2014 Screening for malignant neoplasm of breast [facility] Start: 2004 HPV TESTING HPV TESTING [facility] Start: 2004 Screening for malignant neoplasm of cervix [facility] Start: 1996 DTaP/Tdap/Td Vaccines (1 - Tdap) DTaP/Tdap/Td Vaccines (1 - Tdap) [facility] Start: 12-21-1995 PAP TESTING PAP TESTING [facility] Start: 12-21-1995 Screening for malignant neoplasm of cervix [facility] Start: 1993 DTaP/Tdap/Td Vaccines (1 - Tdap) DTaP/Tdap/Td Vaccines (1 - Tdap) [facility] Start: 1993 Hepatitis A Vaccines (1 of 2 - Risk 2-dose series) Hepatitis A Vaccines (1 of 2 - Risk 2-dose series) [facility] Start: 1993 Hepatitis B Vaccine (1 of 3 - 19+ 3-dose series) Hepatitis B Vaccine (1 of 3 - 19+ 3-dose series) [facility] Start: 1993 Hepatitis B Vaccines (1 of 3 - 19+ 3-dose series) Hepatitis B Vaccines (1 of 3 - 19+ 3-dose series) [facility] Start: 1993 [facility]albumin [facility] Start: 1993 Urine screening for protein Diabetes: Urine Protein Screening [facility] Start: 1992 ANNUAL PCP TEAM CHRONIC DISEASE VISIT ANNUAL PCP TEAM CHRONIC DISEASE VISIT [facility] Start: 1992 BP CONTROLLED (<130/80) BP CONTROLLED (<130/80) [facility] in Start: 1992 Diabetes mellitus screening Diabetes Screening [facility] Start: 1992 HEPATITIS C SCREENING HEPATITIS C SCREENING [facility] Start: 1992 Hepatitis C screening Hepatitis C Screening [facility] Start: 1992 HIV SCREENING HIV SCREENING [facility] Start: 1992 HIV screening HIV Screening [facility] Start: 1986 Depression Screening Depression Screening [facility] Start: 1984 Diabetic foot examination Diabetes: Foot Exam [facility] Start: 1984 Glaucoma screening Diabetes: Retinopathy Screening [facility] Start: 1980 PNEUMOCOCCAL (1 - PCV) PNEUMOCOCCAL (1 - PCV) [facility] Start: 1980 Pneumococcal vaccination [facility] Start: 1980 Pneumococcal Vaccine: Pediatrics (0 to 5 Years) and At-Risk Patients (6 to 64 Years) (1 - PCV) Pneumococcal Vaccine: Pediatrics (0 to 5 Years) and At-Risk Patients (6 to 64 Years) (1 - PCV) [facility] Start: 1980 Pneumococcal Vaccine: Pediatrics (0 to 5 Years) and At-Risk Patients (6 to 64 Years) (1 of 2 - PCV) Pneumococcal Vaccine: Pediatrics (0 to 5 Years) and At-Risk Patients (6 to 64 Years) (1 of 2 - PCV) [facility] Start: 12-21-1979 COVID-19 VACCINE (1) COVID-19 VACCINE (1) [facility] Start: 12-21-1975 MMR Vaccines (1 of 1 - Standard series) MMR Vaccines (1 of 1 - Standard series) [facility] Start: 06-21-1975 COVID-19 VACCINE (#1) COVID-19 VACCINE (#1) [facility] Start: 1974 Echocardiography Echocardiogram [facility] Start: 1974 HEPATITIS B (1 of 3 - 3-dose series) HEPATITIS B (1 of 3 - 3-dose series) [facility] Start: 1974 Hepatitis B Vaccine (1 of 3 - 3-dose series) Hepatitis B Vaccine (1 of 3 - 3-dose series) [facility] Start: 1974 Hepatitis B Vaccines (1 of 3 - 3-dose series) Hepatitis B Vaccines (1 of 3 - 3-dose series) [facility] Start: 1974 HIV screening HIV Screening [facility] Start: 1974 Medicare Annual Wellness Visit Medicare Annual Wellness Visit (AWV) [facility] Start: 1974 Screening for malignant neoplasm of colon [facility] aPTT in Platelet poo r plasma by Coagulation assay aPTT - baseline Lab Timed As needed (Lab) for 1 Occurrences starting 12/05/2023 [facility] Work Phone: Comment on above: As needed (Lab) for 1 Occurrences starti ng 12/05/2023 Bacteria identified in Wound by Culture ABSCESS AND WOUND CULTURE WITH GRAM STAIN Microbiology Routine Vulvar lesion 06/08/2024 3:03 PM EDT [facility] Work Phone: End: 06-18-2023 C reactive protein [Mass/volume] in Serum or Plasma C-Reactive Protein Lab Routine Once (Lab) for 1 Occurrences starting 06/18/2023 until 06/18/[address] [facility] Service Area Work Phone: Comment on above: Once (Lab) for 1 Occurrences starting until 06/18/2023 End: 06-18-2023 CBC panel - Blood by Automated count CBC Lab Routine Morning draw (Lab) for 1 Occurrences starting 06/18/2023 until 06/18/2023 [facility] Work Phone: Comment on above: Morning draw (Lab) for 1 Occurrences sta rting 06/18/2023 until 06/18/2023 CBC panel - Blood by Automated count CBC Lab Timed As needed (Lab) for 1 Occurrences starting 12/05/2023 [facility] Work Phone: Comment on above: As needed (Lab) for 1 Occurrences starti ng 12/05/2023 End: 12-11-2023 CBC panel - Blood by Automated count CBC Lab Routine Every other day (Lab) for 3 Occurrences starting 12/07/2023 until 12/11/2023, 1 completed [facility] Work Phone: Comment on above: Every other day (Lab) for 3 Occurrences starting 12/07/2023 until 12/11/2023, 1 completed End: 03-05-2024 CBC panel - Blood by Automated count CBC Lab Routine Every other day (Lab) for 3 Occurrences starting 03/01/2024 until 03/05/2024, 1 completed [facility] Work Phone: Comment on above: Every other day (Lab) for 3 Occurrences starting 03/01/2024 until 03/05/2024, 1 completed End: 06-18-2023 Choriogonadotropin ( test) [Presence] in Urine hCG, Urine, Qualitative Lab Routine Once (Lab) for 1 Occurrences starting 06/18/2023 until 06/18/2023 [facility] Work Phone: Comment on above: Once (Lab) for 1 Occurrences starting until 06/18/2023 End: 06-18-2023 Comprehensive metabolic 2000 panel - Serum or Plasma Comprehensive metabolic panel Lab Routine Morning draw (Lab) for 1 Occurrences starting 06/18/2023 until 06/18/2023 [facility] Work Phone: Comment on above: Morning draw (Lab) for 1 Occurrences sta rting 06/18/2023 until 06/18/2023 End: 11-14-2023 Continuous Pulse oximetry, In Phase 1 [facility] Work Phone: Comment on above: Continuous until discontinued starting 0 11/14/2023 End: 12-07-2023 Continuous Pulse oximetry, In Phase 1 [facility] Work Phone: Comment on above: Continuous until discontinued starting 0 12/07/2023 End: 12-06-2023 ECG 12 lead [facility] Work Phone: Comment on above: Once for 1 Occurrences starting 12/06/19 until 12/06/2023 End: 03-05-2024 ECG 12 Lead ECG 12 Lead ECG STAT Once for 1 Occurrences starting 03/05/2024 until 03/05/2024 [facility] Work Phone: Comment on above: Once for 1 Occurrences starting 03/05/20 until 03/05/2024 End: 12-05-2023 EGD w Fluoro [facility] Work Phone: Comment on above: Once for 1 Occurrences starting 12/05/19 until 12/05/2023 Once as needed for 1 Occurrences starting 12/05/2023 EGD w Fluoro EGD w Fluoro End oscopy Routine Pseudocyst of pancreas 12/07/2023 10:22 AM EDT [facility] Work Phone: Electrocardiogram, 1 2-lead PRN ACS symptoms Electrocardiogram, 12-lead PRN ACS symptoms ECG Routine As needed until discontinued starting 06/18/2023 [facility] Work Phone: Comment on above: As needed until discontinued starting Electrocardiogram, 1 2-lead PRN ACS symptoms Electrocardiogram, 12-lead PRN ACS symptoms ECG Routine As needed until discontinued starting 11/10/2023 [facility] Work Phone: Comment on above: As needed until discontinued starting Electrocardiogram, 1 2-lead PRN ACS symptoms Electrocardiogram, 12-lead PRN ACS symptoms ECG Routine As needed until discontinued starting 12/05/2023, 1 completed [facility] Work Phone: Comment on above: As needed until discontinued starting , 1 completed Electrocardiogram, 1 2-lead PRN ACS symptoms Electrocardiogram, 12-lead PRN ACS symptoms ECG Routine As needed until discontinued starting 02/28/2024 [facility] Work Phone: Comment on above: As needed until discontinued starting End: 02-27-2024 Extra Urine Vaca Tube Extra Urine Vaca Tube Lab Timed Once for 1 Occurrences starting 02/27/2024 until 02/27/2024 [facility] Work Phone: Comment on above: Once for 1 Occurrences starting 02/27/20 until 02/27/2024 Glucose [Mass/volume ] in Serum or Plasma POCT Glucose Point of Care Testing - Docked Device Routine As needed (Lab) until discontinued starting 11/10/2023 [facility] Work Phone: Comment on above: As needed (Lab) until discontinued start ing 11/10/2023 Glucose [Mass/volume ] in Serum or Plasma POCT Glucose Point of Care Testing - Docked Device Routine As needed (Lab) for 1 Occurrences starting 11/14/[address] [facility] Service Area Work Phone: Comment on above: As needed (Lab) for 1 Occurrences starti ng 11/14/2023 End: 03-01-2024 Glucose [Mass/volume] in Serum or Plasma [facility] Work Phone: Comment on above: 4 times daily before meals and at bedtim e for 3 Days starting 02/28/2024 until 03/01/2024 4 times daily before meals and at bedtime for 3 Days starting 02/28/2024 until 03/01/2024, 11 completed Glucose [Mass/volume ] in Serum or Plasma POCT Glucose Point of Care Testing - Docked Device Routine As needed (Lab) until discontinued starting 02/28/2024 [facility] Work Phone: Comment on above: As needed (Lab) until discontinued start ing 02/28/2024 Heparin unfractionat ed [Units/volume] in Platelet poor plasma by Chromogenic method [facility] Work Phone: Comment on above: As needed (Lab) for 30 Occurrences start ing 12/05/2023 As needed (Lab) for 30 Occurrences starting 12/05/2023, 1 completed End: 03-03-2024 Heparin unfractionated [Units/volume] in Platelet poor plasma by Chromogenic method Heparin Assay Lab Routine Once (Lab) for 1 Occurrences starting 03/03/2024 until 03/03/2024 [facility] Work Phone: Comment on above: Once (Lab) for 1 Occurrences starting until 03/03/2024 Prothrombin time (PT) Protime-IN R Lab Timed As needed (Lab) for 1 Occurrences starting 12/05/2023 [facility] Work Phone: Comment on above: As needed (Lab) for 1 Occurrences starti ng 12/05/2023 End: 03-05-2024 Prothrombin time (PT) Protime-INR Lab Routine Morning draw (Lab) for 5 Occurrences starting 03/01/2024 until 03/05/2024, [address] [facility] Service Area Work Phone: Comment on above: Morning draw (Lab) for 5 Occurrences sta rting 03/01/2024 until 03/05/2024, 2 completed End: 10-18-2023 RF Unspecified body region Views for central venous catheter placement check [facility] Work Phone: Comment on above: Once for 1 Occurrences starting 10/18/19 24 until 10/18/2023 SURGICAL PATHOLOGY SURGICAL PATH OLOGY Lab Routine Vulvar skin tag 05/31/2024 3:32 PM EDT [facility] Work Phone: End: 02-27-2024 Urinalysis complete W Reflex Culture panel - Urine [facility] Work Phone: Comment on above: Once (Lab) for 1 Occurrences starting until 02/27/2024 [facility] Payers Date Payer Category Payer Medicaid MEDICAID MEDICAI D 2023-Present [address] [place] [address] [id number] 2023 Medicaid [id number] 2023 Medicare [id number] 2020 Medicare 2020 Medicare HUMANA MEDICARE HUMANA GOLD PLUS [id number] 2020-Present [phone] [address] [address] [place] [address] O [id number] 2020 Medicare [id number] 2017 Unknown [id number] 2017 Self-pay 2017 Unknown 1974 Unknown [id number] 2.16.840.1.082020.3.579.2. 1974 Unknown [id number] 2.16.840.1.859494.3.579.2. 1974 Unknown [id number] 2.16.840.1.757904.3.579.2. 1974 Unknown [id number] 2.16.840.1.867353.3.579.2. 1974 Unknown [id number] 2.16.840.1.827542.3.579.2. 1974 Unknown [id number] 2.16.840.1.836224.3.579.2 1974 Unknown [id number] 2.16.840.1.455864.3.579.2 1974 Unknown [id number] 2.16.840.1.193302.3.579.2 1974 Unknown [id number] 2.16.840.1.386011.3.579.2 1974 Unknown [id number] 2.16.840.1.901698.3.579.2. 1974 Unknown [id number] 2.16.840.1.246205.3.579.2. 1974 Unknown [id number] 2.16.840.1.835812.3.579.2. 1974 Unknown [id number] 2.16.840.1.676300.3.579.2. 1974 Unknown [id number] 2.16.840.1.985518.3.579.2. 1974 Unknown [id number] 2.16.840.1.173754.3.579.2. 1974 Unknown [id number] 2.16.840.1.426934.3.579.2.627 1974 Unknown [id number] 2.16.840.1.693679.3.579.2.627 1974 Unknown [id number] 2.16.840.1.949897.3.579.2.627 1974 Unknown [id number] 2.16.840.1.370700.3.579.2.651 1974 Unknown [id number] 2.16.840.1.999421.3.579.2.159 1974 Unknown [id number] 2.16.840.1.851373.3.579.2.1243 1974 Unknown [id number] 2.16.840.1.612548.3.579.2.1244 1974 Unknown [id number] 2.16840.1.238077.3.579.2.1244 1974 Unknown [id number] 2.16840.1.886626.3.579.2.1244 1974 Unknown [id number] 2.16.840.1.409515.3.579.2.1244 1974 Unknown [id number] 2.16.840.1.219530.3.579.2.1244 1974 Unknown [id number] 2.16.840.1.154739.3.579.2.1244 1974 Unknown [id number] 2.16.840.1.943486.3.579.2.1244 1974 Unknown [id number] 2.16.840.1.063121.3.579.2.1244 1974 Unknown [id number] 2.16.840.1.859915.3.579.2.1244 1974 Unknown [id number] 2.16.840.1.611618.3.579.2.1244 1974 Unknown [id number] 2.16.840.1.566342.3.579.2.1244 1974 Unknown [id number] 2.16.840.1.094784.3.579.2.1244 1974 Unknown [id number] 2.16.840.1.420866.3.579.2.1244 1974 Unknown [id number] 2.16.840.1.603910.3.579.2.1244 1974 Unknown [id number] 2.16.840.1.936344.3.579.2.356 1974 Unknown [id number] 2.16.840.1.228429.3.579.2.1246 1974 Unknown [id number] 2.16.840.1.293951.3.579.2.1246 1974 Unknown [id number] 2.16.840.1.596198.3.579.2.1246 1974 Unknown [id number] 2.16.840.1.015368.3.579.2.1246 1974 Unknown [id number] 2.16.840.1.419029.3.579.2.1246 1974 Unknown [id number] 2.16.840.1.408881.3.579.2.1246 1974 Unknown [id number] 2.16.840.1.816994.3.579.2.1246 1974 Unknown [id number] 2.16.840.1.401854.3.579.2.1246 1974 Unknown [id number] 2.16.840.1.244811.3.579.2.1246 1974 Unknown [id number] 2.16.840.1.749651.3.579.2.1246 1974 Unknown [id number] 2.16.840.1.029786.3.579.2.1246 1974 Unknown [id number] 2.16.840.1.911381.3.579.2.1246 1974 Unknown [id number] 2.16.840.1.499888.3.579.2.1246 1974 Unknown [id number] 2.16.840.1.147530.3.579.2.1246 1974 Unknown [id number] 2.16.840.1.786007.3.579.2.1246 1974 Unknown [id number] 2.16.840.1.658557.3.579.2.1246 1974 Unknown [id number] 2.16.840.1.354588.3.579.2.1246 1974 Unknown [id number] 2.16840.1.085840.3.579.2.1246 1974 Unknown [id number] 2.16840.1.071031.3.579.2.1246 1974 Unknown [id number] 2.16.840.1.048608.3.579.2.1246 1974 Unknown [id number] 2.16.840.1.563618.3.579.2.1246 1974 Unknown [id number] 2.16840.1.291928.3.579.2.1246 1974 Unknown [id number] 2.16.840.1.707194.3.579.2.1246 1974 Unknown [id number] 2.16.840.1.859551.3.579.2.1246 1974 Unknown [id number] 2.16.840.1.286327.3.579.2.1246 1974 Unknown [id number] 2.16.840.1.968696.3.579.2.1242 1974 Unknown [id number] 2.16.840.1.956107.3.579.2.1242 1974 Unknown [id number] 2.16.840.1.424102.3.579.2.1242 1974 Unknown [id number] 2.16.840.1.749126.3.579.2.1242 1974 Unknown [id number] 2.16.840.1.256664.3.579.2.1242 1974 Unknown [id number] 2.16.840.1.559441.3.579.2.1242 1974 Unknown [id number] 2.16.840.1.122320.3.579.2.1242 1974 Unknown [id number] 2.16.840.1.910722.3.579.2.1242 1974 Unknown [id number] 2.16.840.1.095750.3.579.2.1242 1974 Unknown [id number] 2.16.840.1.319096.3.579.2.1242 1974 Unknown [id number] 2.16.840.1.141801.3.579.2.1242 1974 Unknown [id number] 2.16.840.1.922963.3.579.2.1242 1974 Unknown [id number] 2.16.840.1.910895.3.579.2.1242 1974 Unknown [id number] 2.16.840.1.685730.3.579.2.1242 1974 Unknown [id number] 2.16.840.1.648668.3.579.2.3 Medicaid [id number] Medicare [id number] Social History Date Type Detail Facility Tobacco Tobacco Use: use a vape pen uses it daily. Type: Electronic Cigarettes. [facility] Smokes tobacco d aily (finding) [facility] Sex Assigned At Female [facility] Start: 11-21-2019 End: 05-31-2024 Tobacco smoking status NHIS Ex-smoker [facility] Start: 11-21-2019 End: 05-31-2024 Tobacco use and exposure Smokeless tobacco non-user [facility] Start: 08-25-2021 End: 06-08-2024 Alcohol intake Not Asked [facility] Start: 11-27-2019 History SDOH Financial 5 [facility] Start: 11-27-2019 History SDOH Food Worry 1 [facility] Start: 11-27-2019 History SDOH Transport Med 2 [facility] Start: 1975 Sex Assigned At Not on file [facility] History of tobacco use Current smoker [facility] Tobacco smoking consumption unknown [facility] History of tobacco use Cigarette Smoker [facility] Start: 09-07-2022 Alcohol intake Current non-drinker of alcohol (finding) [facility] Start: 09-07-2022 End: 07-08-2023 History of Social function [facility] Work Phone: Start: 09-07-2022 End: 07-08-2023 Tobacco use panel [facility] Work Phone: How hard is it for y ou to pay for the very basics like food, housing, medical care, and heating Not hard at all [facility] Work Phone: (I/We) worried whesara er (my/our) food would run out before (I/we) got money to buy more. Never true [facility] Work Phone: Start: 03-17-2021 Gender identity Identifies as female gender (finding) [facility] Start: 03-17-2021 Sexual orientation Heterosexual (finding) [facility] Start: 07-05-2023 End: 11-23-2023 Tobacco smoking status NHIS Never smoked tobacco [facility] Start: 07-27-2023 End: 02-27-2024 Alcohol intake Ex-drinker (finding) [facility] Work Phone: Start: 07-24-2023 End: 03-05-2024 Exposure to SARS-CoV-2 (event) Not sure [facility] How often to you hav e a drink containing alcohol? Never [facility] Work Phone: Start: 10-27-2023 End: 11-23-2023 Tobacco use and exposure User of smokeless tobacco [facility] Work Phone: How hard is it for y ou to pay for the very basics like food, housing, medical care, and heating Not very hard [facility] Work Phone: In the past 12 month s, was there a time when you were not able to pay the mortgage or rent on time? No [facility] Work Phone: Start: 11-23-2023 Tobacco Comment vapes [facility] Work Phone: Start: 01-23-2024 End: 02-02-2024 Exposure to SARS-CoV-2 (event) Unable to assess [facility] Medical Equipment Procedure Code Equipment Code Equipment Origin al Text Equipment Identifier Dates See Instructions , Brand as covered Diagnosis E11.9 Patient is not insulin independent Check blood sugars daily, # 100 EA, 0 Refill(s), Pharmacy: [facility], 160, cm, 09/14/23 9:08:00 EST, Height, 214, kg, 09/14/23 9:08:00 EST, Dosing Weight Start: 09-29-2023 See Instructions , Brand as covered Diagnosis E11.9 Patient is not insulin independent Check blood sugars daily, # 100 EA, 0 Refill(s), Pharmacy: [facility], 160, cm, 09/14/23 9:08:00 EST, Height, 214, kg, 09/14/23 9:08:00 EST, Dosing Weight Start: 09-29-2023 Kit, Power Port, Clearvue, Isp Implantable With 8fr Cath - [id number] Start: 10-18-2023 See Instructions , Brand as covered Diagnosis E11.9 Patient is not insulin independent Check blood sugars daily, # 100 EA, 0 Refill(s), Pharmacy: [facility], 160, cm, 09/14/23 9:08:00 EST, Height, 214, kg, 09/14/23 9:08:00 EST, Dosing Weight Start: 09-29-2023 See Instructions , Brand as covered Diagnosis E11.9 Patient is not insulin independent Check blood sugars daily, # 100 EA, 0 Refill(s), Pharmacy: [facility], 160, cm, 09/14/23 9:08:00 EST, Height, 214, kg, 09/14/23 9:08:00 EST, Dosing Weight Start: 09-29-2023 See Instructions , BD UF 8mm 31 G (short) Use 4 pen needles daily to inject insulin qs 1 month supply, # 1 EA, 11 Refill(s), Pharmacy: [facility] #30, 160, cm, 10/17/23 15:51:00 EST, Height, 104.5, kg, 10/17/23 15:51:00 EST, Dosing Weight Start: 10-26-2023 Stent, Axios, W/ Electrocautery, 20mm X 10mm, Enhanced - [id number] Start: 11-14-2023 Stent Set, Zimmo n Biliary, 7fr 4cm - [id number] Start: 11-14-2023 See Instructions , Brand as covered Diagnosis E11.9 Check blood sugars daily, # 100 EA, 0 Refill(s), Pharmacy: [facility] #[facility], 160, cm, 01/02/24 14:52:00 EDT, Height, 109.1, kg, 01/02/24 14:52:00 EDT, Dosing Weight Start: 01-02-2024 See Instructions , Brand as covered Diagnosis E11.9 Patient is not insulin independent Check blood sugars daily, # 100 EA, 0 Refill(s), Pharmacy: [facility] #[facility], 160, cm, 01/02/24 14:52:00 EDT, Height, 109.1, kg, 01/02/24 14:52:00 EDT, Dosing Weight Start: 01-02-2024 See Instructions , BD UF 8mm 31 G (short) Use 4 pen needles daily to inject insulin qs 1 month supply, # 1 EA, 11 Refill(s), Pharmacy: [facility] #30, 160, cm, 10/17/23 15:51:00 EST, Height, 104.5, kg, 10/17/23 15:51:00 EST, Dosing Weight Start: 10-26-2023 See Instructions , 1 bottle of 100 Test 4 times daily, # 1 EA, 11 Refill(s), Pharmacy: [facility] #30, 163, cm, 02/15/24 10:25:00 EDT, Height, 107, kg, 02/15/24 10:25:00 EDT, Dosing Weight Start: 02-15-2024 See Instructions , Brand as covered Diagnosis E11.9 Patient is insulin dependent Check blood sugars 4 times daily, # 100 EA, 3 Refill(s), Pharmacy: [facility] #30, 163, cm, 02/15/24 10:25:00 EDT, Height, 107, kg, 02/15/24 10:25:00 EDT, Dosing Weight Start: 02-15-2024 See Instructions , BD UF 8mm 31 G (short) Use 4 pen needles daily to inject insulin qs 1 month supply, # 1 EA, 11 Refill(s), Pharmacy: [id number], 160, cm, 10/17/23 15:51:00 EST, Height, 104.5, kg, 10/17/23 15:51:00 EST, Dosing Weight Start: 10-26-2023 True Metrix Gluc ose Test Strip, Check blood sugars daily] Start: 02-15-2024 Functional Status Date Assessment Result Facility 10-17-2023 Functional Status Assistive Device None A [facility] 10-17-2023 Functional Status Standard Safet y ID band on, Allergy Band on, Call device within reach, Bed in low position, Wheels locked, Upper/Half-Length side-rails up, Phone within reach, personal items within reach [facility] 06-03-2023 Functional Status ID band on, Allergy Band on, Call device within reach, Bed in low position, Wheels locked, Visitor at bedside [facility] 06-03-2023 Functional Status [facility] selina [facility] 05-23-2023 Functional Status Independent [facility] 05-23-2023 Functional Status Standard Safet y ID band on, Allergy Band on, Call device within reach, Bed in low position, Wheels locked, Upper/Half-Length side-rails up, Phone within reach, personal items within reach, Bedside Cart Locked, Visitor at bedside [facility] 05-19-2023 Functional Status Activity Jayda tance Independent [facility] 05-19-2023 Functional Status Repositions self [facility] 05-09-2023 Functional Status ID band on, Allergy Band on, Call device within reach, Bed in low position, Wheels locked, Upper/Half-Length side-rails up, Phone within reach [facility] 05-09-2023 Functional Status Sean Singh [facility] 04-29-2023 Functional Status Identified as high risk, Door open, General Neurologist at bedside [facility] 04-29-2023 Functional Status Sean Singh [facility] 04-29-2023 Functional Status Ambulation Amb ulation in Fitch 1 [facility] 04-29-2023 Functional Status Positioning Repositions [facility] 04-29-2023 Functional Status Sean Singh [facility] 04-29-2023 Functional Status Sean Singh [facility] 04-25-2023 Functional Status Up ad cony Sean Singh [facility] 04-25-2023 Functional Status Sean Singh [facility] 04-25-2023 Functional Status Environmental Safety Implemented Adequate room lighting, Bed in low position, Call device within reach, Non-Slip footwear, Personal items within reach, Traffic path in room free of clutter, Wheels locked [facility] 04-25-2023 Functional Status Sean Singh [facility] 04-25-2023 Functional Status Sean Singh [facility] 04-03-2023 Functional Status Room check performed [facility] 04-02-2023 Functional Status Sean Singh [facility] 04-02-2023 Functional Status Sean [facility] 04-02-2023 Functional Status Sean [facility] 04-02-2023 Functional Status 100 [facility] 04-01-2023 Functional Status Sensory Deficits None A [facility] 03-11-2023 Functional Status Room check performed [facility] 03-11-2023 [facility] Functional Status Breakfast Percent 50 [facility] 03-11-2023 [facility] 03-11-2023 Functional Status Demonstrates C orrect Call Light Use Yes [facility] 03-11-2023 Functional Status Sean [facility] 03-10-2023 Functional Status Sean [facility] 03-09-2023 [facility] 03-09-[facility]23 Functional Status Lunch Percent 100 [facility] 03-08-2023 Functional Status Home managemen t, Housework, Laundry, Meal preparation, Personal ADL [facility] 03-07-2023 Functional [facility] 01-25-2023 Functional Status Up ad cony [facility] 12-06-2022 Functional Status Assistive Device None A [facility] 11-13-2022 Functional Status Independent [facility] 11-13-2022 Functional Status Standard Safet y ID band on, Allergy Band on, Call device within reach, Bed in low position, Wheels locked, Upper/Half-Length side-rails up, Phone within reach, personal items within reach, Assistive devices within reach, Toileting device within reach, Bedside Cart Locked, Visitor at bedside, Safety level maintained [facility] 11-13-2022 Functional Status Ambulating in fitch, Ambulating in room, Awake [facility] 11-12-2022 Functional Status Standard Safet y ID band on, Allergy Band on, Call device within reach, Bed in low position, Wheels locked, Upper/Half-Length side-rails up, personal items within reach [facility] 10-19-2022 Functional Status Awake, Repositions self [facility] 10-19-2022 Functional Status Ambulation in Fitch [facility] 10-19-2022 Functional Status [facility] 10-18-2022 Functional Status Independent [facility] 10-18-2022 Functional Status Standard Safet y ID band on, Allergy Band on, Call device within reach, Bed in low position, Wheels locked [facility] 07-27-2022 Functional Status ID band on, Call device within reach, Bed in low position, Wheels locked, Upper/Half-Length side-rails up [facility] 07-27-2022 Functional Status Awake, Repositions [facility] 06-22-2022 Functional Status Yes [facility] 06-22-2022 Functional Status Room check performed [facility] 06-22-2022 Functional Status [facility] 06-22-2022 Functional Status [facility] 06-21-2022 Functional Status [facility] 06-21-2022 Functional Status [facility] 06-21-2022 Functional Status Done [facility] 06-20-2022 Functional Status bilateral knee high [facility] 06-20-2022 Functional Status NPO Status Initiated [facility] 06-19-2022 Functional Status Lunch Percent 50 [facility] 06-19-2022 Functional Status Breakfast Percent 25 [facility] 06-19-2022 Functional Status Activity Jayda tance Independent [facility] 06-19-2022 Functional Status SCD On/Re-appl ied bilateral knee [facility] 06-19-2022 Functional Status Hospital bed [facility] 06-19-2022 Functional Status [facility] 06-18-2022 Functional Status [facility] 06-18-2022 Functional Status [facility] 06-18-2022 Functional Status Living Situati on Lives with significant other [facility] 06-17-2022 Functional Status Assistive Device None A [facility] 06-17-2022 Functional Status Standard Safet y ID band on, Call device within reach, Bed in low position [facility] 04-12-2022 Functional Status Up ad cony Sean marks [facility] 03-10-2022 Functional Status Independent Sean marks [facility] 03-10-2022 Functional Status Standard Safet y ID band on, Allergy Band on, Call device within reach, Bed in low position, Wheels locked, Upper/Half-Length side-rails up, Phone within reach, personal items within reach [facility] 02-11-2022 Functional Status Room check performed [facility] 02-11-2022 Functional Status Sean marks [facility] 02-02-2022 Functional Status Sean marks [facility] 02-02-2022 Functional Status Sean marks [facility] Functional observable [facility] Mental Status Date Assessment Result Facility 10-17-2023 Mental Status Orientation Oriented x 4 [facility] 10-17-2023 Mental Status [facility] 06-16-2023 Cognitive functi ons [id number] [facility] 06-03-2023 Mental Status Orientation Oriented x 4 [facility] 06-03-2023 Mental Status [facility] 05-23-2023 Mental Status Orientation Oriented x 4 [facility] 05-23-2023 Mental Status [facility] 05-19-2023 Mental Status Orientation Oriented x 4 [facility] 05-19-2023 Mental Status [facility] 05-16-2023 Cognitive functi ons [id number] [facility] 05-09-2023 Mental Status Orientation Oriented x 4 [facility] 05-09-2023 Mental Status [facility] 04-29-2023 Mental Status Orientation Does not intera ct [facility] 04-26-2023 Cognitive functi ons [id number] [facility] 04-25-2023 Mental Status Oriented x 4 [facility] 04-25-2023 Mental Status [facility] 04-02-2023 Mental Status Oriented x 4, Follows simple commands [facility] 04-02-2023 [facility] Status [facility] 04-01-2023 [facility] Status [facility] 04-01-2023 [facility] Status [facility] 03-11-2023 Mental Status Oriented x 4 [facility] 03-11-2023 Mental Status [facility] 03-10-2023 Mental Status [facility] 01-25-2023 Mental Status Orientation Oriented x 4 [facility] 01-25-2023 Mental Status [facility] 12-06-2022 Mental Status Orientation Oriented x 4 [facility] 11-13-2022 Mental Status Orientation Oriented x 4 [facility] 11-13-2022 Mental Status [facility] 11-13-2022 Mental Status Orientation Oriented x 4 [facility] 11-12-2022 Mental Status [facility] 10-19-2022 Mental Status Oriented x 4 [facility] 10-19-2022 Mental Status [facility] 10-18-2022 Mental Status Orientation Oriented x 4 [facility] 10-18-2022 Mental Status [facility] 07-27-2022 Mental Status Orientation Oriented x 4 [facility] 07-27-2022 Mental Status [facility] 06-22-2022 Mental Status Orientation Orie nted x 4, Follows simple commands [facility] 06-22-2022 Mental Status [facility] 06-21-2022 Mental Status [facility] 06-20-2022 Mental Status [facility] 06-19-2022 Mental Status [facility] 06-17-2022 Mental Status Orientation Oriented x 4 [facility] 06-17-2022 Mental Status [facility] 04-12-2022 Mental Status Oriented x 4 [facility] 03-10-2022 Mental Status Orientation Oriented x 4 [facility] 03-10-2022 Mental Status [facility] 02-11-2022 Mental Status Orientation Oriented x 4 [facility] 02-11-2022 Mental Status [facility] 02-02-2022 Mental Status [facility] 02-02-2022 Mental Status [facility] Clinical Notes 04-29-2021 to 06-14-2024 Telephone Encounter - Jude Dominguez MA - 06/12/2024 7:54 AM EDTTelephone Encounter - Jude Dominguez MA - 06/12/2024 7:54 AM EDTTelephone Encounter - Cj Downey RN - 06/11/2024 12:07 PM EDT Note Date & Type Note Facility 06-14-2024 Note HNO ID: [id number] Author: LYNN MAIER MD Service: ? Author Type: Physician Type: Progress Notes Filed: 06/14/2024 23:59 Note Text: Dorothea Rutledge is a 48 year old female who presents today for a vulvar biopsy. Indication: Skin tag. UNIVERSAL PROTOCOL / SAFETY CHECKLIST Procedure to be Performed: Excision of skin tag Sign In: A Moment of CARE was completed. Personnel directly involved with the procedure wore the appropriate PPE (Personal Protective Equipment). Patient/Surrogate Stated/Verified: PATIENT VERIFIED(optional for EMERGENT procedures): Patient name, Date of , Relevant allergies, and The intended procedure Time Out Communication: Intended patient and procedure match the source documents. Consent documented and matches the intended procedure. Sign Out: SIGN OUT (optional for EMERGENT procedures): All specimen containers correctly labeled. Lynn Maier MD PROCEDURE NOTE: GROSS LESIONS: Yes, one 0.5 cm skin tag BIOPSY: Area was cleansed with betadine and anesthetized with 1 mL 1% lidocaine. Excised with scissors HEMOSTASIS: Obtained with silver nitrate Procedure Summary: Patient tolerated procedure well. ASSESSMENT: Vulvar skin tag PLAN: Specimens labeled and sent to Pathology. Lynn Maier MD [facility] 06-12-2024 Telephone encounter Note Received prior auth for Baclofen, will disregard since it looks like patient has already picked up medication. Jdue Dominguez MA [facility] 06-12-2024 Miscellaneous Notes Received prior auth for Baclofen, will disregard since it looks like patient has already picked up medication. Jude Dominguez MA Called patient and states she is starting to feel a little better. Patient states she already has lidocaine gel and patches at home and was using them, but not helping a whole lot. Cj Downey RN Noted. I can order some topical lidocaine if she was to try that. Laury Orr APRN.CNP Patient calling with update since starting Baclofen. She started taking it on 06/09 at dinner time. Last dose this morning at 0630. Yesterday she started having involuntary jerking movements with arms and hands every few seconds. Also, she has noticed brain fog and difficulty with simple tasks and memory. For example, she was unable to calculate her carb count like usual and put into meter for insulin pump today. She felt like she couldn't remember how to do that. Advised to not take anymore baclofen and to go to ER for symptoms. Patient is refusing to go to ER for this though. Please advise. Elyse Rosales RN documented in this encounter [facility] 06-11-2024 Telephone encounter Note Called patient and states she is starting to feel a little better. Patient states she already has lidocaine gel and patches at home and was using them, but not helping a whole lot. Cj Downey RN [facility] 06-11-2024 Telephone encounter Note Noted. I can order some topical lidocaine if she was to try that. Laury Orr APRN.HAMLET [facility] 06-11-2024 Telephone encounter Note Patient calling with update since starting Baclofen. She started taking it on 06/09 at dinner time. Last dose this morning at 0630. Yesterday she started having involuntary jerking movements with arms and hands every few seconds. Also, she has noticed brain fog and difficulty with simple tasks and memory. For example, she was unable to calculate her carb count like usual and put into meter for insulin pump today. She felt like she couldn't remember how to do that. Advised to not take anymore baclofen and to go to ER for symptoms. Patient is refusing to go to ER for this though. Please advise. Elyse Rosales RN [facility] 06-08-2024 Note HNO ID: [id number] Author: LAURY ORR APRN.INVESTOR RELATIONS DIRECTOR Service: ? Author Type: Nurse Practitioner Type: Progress Notes Filed: 06/08/2024 16:04 Note Text: Dorothea Rutledge is a 48 year old female who presents for problem visit vulvar lump and lesion HPI: pt states the sore at the vaginal opening is still painful but has not notice and drainage from it. On the right vulva there is a lump that is very painful. She seen in the ED about 2 weeks ago and they tried to aspirate the lump with a needle and was not able to. 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 LMP: Hysterectomy Age at Menarche: Age at First : Age at Menopause: 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 Comments: Sexual Activity: Yes; Male Contraception: Surgical PAST MEDICAL HISTORY Diagnosis Date Abnormal LFTs Anxiety Common bile duct stone CVA (cerebral infarction) Depression DVT (deep venous thrombosis) (HCC) Factor V Leiden (HCC) HLD (hyperlipidemia) HTN (hypertension) Right upper quadrant pain PAST SURGICAL HISTORY Procedure Laterality Date APPENDECTOMY DELIVERY ONLY , low transverse and horizontal and vertical CHOLECYSTECTOMY Cholecystectomy COLONOSCOPY FLX DX W/COLLJ SPEC WHEN PFRMD Colonoscopy ERCP DX COLLECTION SPECIMEN BRUSHING/WASHING 06/11/15 Cholangiopancreatography (ERCP) inpt [facility] ESOPHAGOGASTRODUODENOSCOPY TRANSORAL DIAGNOSTIC EGD [facility] FILTER TONSILLECTOMY HX TOTAL ABDOMINAL HYSTERECT W/WO RMVL TUBE OVARY Hysterectomy, NOÉ FAMILY HISTORY Problem Relation Age of Onset None Mother None Father None Brother None Sister Social History Tobacco Use Smoking status: Former Smokeless tobacco: Never Vaping Use Vaping status: current everyday user Current Outpatient Medications Medication Sig ketamine 5% nasal spray solution (CPD) mix for pain QID nasally, 0 Refill(s), 109.1 NOVOLOG FLEXPEN U-100 INSULIN 100 unit/mL (3 mL) INJECT 18 UNITS SUBCUTANEOUSLY THREE TIMES DAILY BEFORE MEALS insulin glargine U-300 conc (TOUJEO MAX) 300 unit/mL (3 mL) inpn Inject 34 Units subcutaneously. ketamine HCl powder 100 % powd Ketamine 100 mg/mL + lidocaine 40 mg/mL 1 puff in each nostril 4 times daily as needed, DSP# 40 mL x 5 refills omeprazole (PRILOSEC) 40 mg capsule Take by mouth. rOPINIRole (REQUIP) 2 mg tablet See Instructions, TAKE 1 TABLET BY MOUTH DAILY, # 28 tab(s), 5 Refill(s), Pharmacy: [id number], 161, cm, 02/06/20 14:12:00 EDT, Height, kg, 02/06/20 14:12:00 EDT, Dosing Weight warfarin (COUMADIN) 2.5 mg tablet Take 1 tablet by mouth daily or as directed by [facility] Ascorbic Acid (VITAMIN C) 1,000 mg tablet Take 1 tablet by mouth daily at bedtime. furosemide (LASIX) 40 mg tablet Take 40 mg by mouth once daily. metoprolol tartrate, short acting, (LOPRESSOR) 25 mg tablet Take 25 mg by mouth twice daily. Methenamine Hippurate (HIPREX) 1 gram tablet Take 1 g by mouth once daily. linaCLOtide (LINZESS) 290 mcg capsule Take 290 mcg by mouth once daily. ondansetron (ZOFRAN) 4 mg tablet Take 4 mg by mouth every 8 hours as needed for nausea/vomiting. nitrofurantoin monohydrate and macrocrystal (MACROBID) 100 mg capsule Take 25 mg by mouth once daily. potassium chloride 20 mEq TbER Take 20 mEq by mouth twice daily. venlafaxine ER (EFFEXOR XR) 150 mg 24 hr capsule Take 150 mg by mouth once daily. VALACYCLOVIR HCL (VALTREX ORAL) Take 500 mg by mouth once daily. clonazePAM (KLONOPIN) 0.5 mg tablet Take one tablet as needed for prolonged convulsive seizure or cluster or 3 or more seizures in 24 hours. Do not exceed more than 1 tablet per day. 10 tablets per 30 days. lacosamide (VIMPAT) 100 mg tab 1 tab in am and 2 tabs in pm zonisamide (ZONEGRAN) 100 mg capsule Take 4 capsules by mouth once daily. 4 capsules a day hydrOXYzine HCl (ATARAX) 50 mg tablet Take 50 mg by mouth four times daily. (Patient not taking: Reported on 05/31/2024) dicyclomine (BENTYL) 20 mg tablet Take 20 mg by mouth four times daily as needed. (Patient not taking: Reported on 05/31/2024) magnesium oxide 400 mg magnesium tab Take 1 tablet by mouth once daily. (Patient not taking: Reported on 05/31/2024) No current facility-administered medications for this visit. Allergies As of Date: 06/08/2024 Allergen Noted Reaction MORPHINE 04/12/2016 Other: See Comments NEURONTIN [GABAPENTIN] 10/23/2013 Intolerance PENICILLINS 10/23/2013 Intolerance SULFA (SULFONAMIDE ANTIBIOTICS) 10/23/2013 Intolerance Fully Assessed 06/08/2024 REVIEW OF SYSTEMS Expanded ROS: N/A Allergies and current medication updated:Yes SENSITIVE EXAM: The sensitive examination was discussed with the Patient or Patient's Authorized Chain Hoist Operator. As applicable, any other physician, advance practice provider, medical student, or other health professional student that will be observing or involved in the (more content not included)... [facility] 06-08-2024 History of Present illness Narrative Images from the original note were not included. Dorothea Rutledge is a 48 year old female who presents for problem visit vulvar lump and lesion HPI: pt states the sore at the vaginal opening is still painful but has not notice and drainage from it. On the right vulva there is a lump that is very painful. She seen in the ED about 2 weeks ago and they tried to aspirate the lump with a needle and was not able to. 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 LMP: Hysterectomy Age at Menarche: Age at First : Age at Menopause: 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 Comments: Sexual Activity: Yes; Male Contraception: Surgical PAST MEDICAL HISTORY Diagnosis Date Abnormal LFTs Anxiety Common bile duct stone CVA (cerebral infarction) Depression DVT (deep venous thrombosis) (HCC) Factor V Leiden (HCC) HLD (hyperlipidemia) HTN (hypertension) Right upper quadrant pain PAST SURGICAL HISTORY Procedure Laterality Date APPENDECTOMY DELIVERY ONLY , low transverse and horizontal and vertical CHOLECYSTECTOMY Cholecystectomy COLONOSCOPY FLX DX W/COLLJ SPEC WHEN PFRMD Colonoscopy ERCP DX COLLECTION SPECIMEN BRUSHING/WASHING 06/11/15 Cholangiopancreatography (ERCP) inpt [facility] ESOPHAGOGASTRODUODENOSCOPY TRANSORAL DIAGNOSTIC EGD [facility] FILTER TONSILLECTOMY HX TOTAL ABDOMINAL HYSTERECT W/WO RMVL TUBE OVARY Hysterectomy, NOÉ FAMILY HISTORY Problem Relation Age of Onset None Mother None Father None Brother None Sister Social History Tobacco Use Smoking status: Former Smokeless tobacco: Never Vaping Use Vaping status: current everyday user Current Outpatient Medications Medication Sig ketamine 5% nasal spray solution (CPD) mix for pain QID nasally, 0 Refill(s), 109.1 NOVOLOG FLEXPEN U-100 INSULIN 100 unit/mL (3 mL) INJECT 18 UNITS SUBCUTANEOUSLY THREE TIMES DAILY BEFORE MEALS insulin glargine U-300 conc (TOUJEO MAX) 300 unit/mL (3 mL) inpn Inject 34 Units subcutaneously. ketamine HCl powder 100 % powd Ketamine 100 mg/mL + lidocaine 40 mg/mL 1 puff in each nostril 4 times daily as needed, DSP# 40 mL x 5 refills omeprazole (PRILOSEC) 40 mg capsule Take by mouth. rOPINIRole (REQUIP) 2 mg tablet See Instructions, TAKE 1 TABLET BY MOUTH DAILY, # 28 tab(s), 5 Refill(s), Pharmacy: [facility] [id number], 161, cm, 02/06/20 14:12:00 EDT, Height, kg, 02/06/20 14:12:00 EDT, Dosing Weight warfarin (COUMADIN) 2.5 mg tablet Take 1 tablet by mouth daily or as directed by [facility] Ascorbic Acid (VITAMIN C) 1,000 mg tablet Take 1 tablet by mouth daily at bedtime. furosemide (LASIX) 40 mg tablet Take 40 mg by mouth once daily. metoprolol tartrate, short acting, (LOPRESSOR) 25 mg tablet Take 25 mg by mouth twice daily. Methenamine Hippurate (HIPREX) 1 gram tablet Take 1 g by mouth once daily. linaCLOtide (LINZESS) 290 mcg capsule Take 290 mcg by mouth once daily. ondansetron (ZOFRAN) 4 mg tablet Take 4 mg by mouth every 8 hours as needed for nausea/vomiting. nitrofurantoin monohydrate and macrocrystal (MACROBID) 100 mg capsule Take 25 mg by mouth once daily. potassium chloride 20 mEq TbER Take 20 mEq by mouth twice daily. venlafaxine ER (EFFEXOR XR) 150 mg 24 hr capsule Take 150 mg by mouth once daily. VALACYCLOVIR HCL (VALTREX ORAL) Take 500 mg by mouth once daily. clonazePAM (KLONOPIN) 0.5 mg tablet Take one tablet as needed for prolonged convulsive seizure or cluster or 3 or more seizures in 24 hours. Do not exceed more than 1 tablet per day. 10 tablets per 30 days. lacosamide (VIMPAT) 100 mg tab 1 tab in am and 2 tabs in pm zonisamide (ZONEGRAN) 100 mg capsule Take 4 capsules by mouth once daily. 4 capsules a day hydrOXYzine HCl (ATARAX) 50 mg tablet Take 50 mg by mouth four times daily. (Patient not taking: Reported on 05/31/2024) dicyclomine (BENTYL) 20 mg tablet Take 20 mg by mouth four times daily as needed. (Patient not taking: Reported on 05/31/2024) magnesium oxide 400 mg magnesium tab Take 1 tablet by mouth once daily. (Patient not taking: Reported on 05/31/2024) No current facility-administered medications for this visit. Allergies As of Date: 06/08/2024 Allergen Noted Reaction MORPHINE 04/12/2016 Other: See Comments NEURONTIN [GABAPENTIN] 10/23/2013 Intolerance PENICILLINS 10/23/2013 Intolerance SULFA (SULFONAMIDE ANTIBIOTICS) 10/23/2013 Intolerance Fully Assessed 06/08/2024 REVIEW OF SYSTEMS Expanded ROS: N/A Allergies and current medication updated:Yes SENSITIVE EXAM: The sensitive examination was discussed with the Patient or Patient's Authorized Chain Hoist Operator. As applicable, any other physician, advance practice provider, medical student, or other health professional student that will be observing or involved in the sensitive examination for educational or training purposes was discussed with the Patient or Authorized Chain Hoist Operator. The Patient or Authorized Chain Hoist Operator has agreed to proceed with the sensitive examination. (Sensitive examination includes inspection and/or palpation of the breasts, pelvis, prostate and anorectal regions). EXAM: There were no vitals taken for this visit. GENERAL: pleasant, female in no apparent distress HEENT: Normocephalic, atraumatic, mucus membranes moist, and no lesions CHEST: Normal inspiratory effort Physical Exam Genitourinary: NEURO: alert and oriented x3,exam grossly non-focal EXTREMITIES: normal ASSESSMENT/PLAN: 1. Vulvar lesion - ICD9: 624.8, ICD10: N90.89 (primary diagnosis) - ABSCESS AND WOUND CULTURE WITH GRAM STAIN 2. Vulvar mass - ICD9: 625.8, ICD10: N90.89 Not recommend to open at this time Continue w/ warm compresses and Epson salt baths Follow up as needed. Laury Orr APRN.CNP Medical Decision Making: Problems: Low: Acute, uncomplicated illness or injury Risk: Low: Low risk from testing/treatment Medical Decision Making Level: 3 - Low documented in this encounter [facility] 05-31-2024 Note HNO ID: [id number] Author: LYNN MAIER MD Service: ? Author Type: Physician Type: Progress Notes Filed: 05/31/2024 15:36 Note Text: The sensitive examination was discussed with the Patient or Patient's Authorized Chain Hoist Operator. As applicable, any other physician, advance practice provider, medical student, or other health professional student that will be observing or involved in the sensitive examination for educational or training purposes was discussed with the Patient or Authorized Chain Hoist Operator. The Patient or Authorized Chain Hoist Operator has agreed to proceed with the sensitive examination. (Sensitive examination includes inspection and/or palpation of the breasts, pelvis, prostate and anorectal regions) Overhead Foreman offered: Patient declines. Dorothea Rutledge is a 48 year old female who presents for problem visit bleeding perineal lesion for 4 year(s). HPI: lesion at vaginal opening that is painful and bleeds with intercourse. Has been present for at least 4 years. Not sure if its larger. Is currently taking keflex for a UTI. Usually gets a yeast infection with antibiotics OB History No obstetric history on file. 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 LMP: Hysterectomy Age at Menarche: Age at First : Age at Menopause: 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 Comments: Sexual Activity: Yes; Male Contraception: Surgical PAST MEDICAL HISTORY Diagnosis Date Abnormal LFTs Anxiety Common bile duct stone CVA (cerebral infarction) Depression DVT (deep venous thrombosis) (HCC) Factor V Leiden (HCC) HLD (hyperlipidemia) HTN (hypertension) Right upper quadrant pain PAST SURGICAL HISTORY Procedure Laterality Date APPENDECTOMY DELIVERY ONLY , low transverse and horizontal and vertical CHOLECYSTECTOMY Cholecystectomy COLONOSCOPY FLX DX W/COLLJ SPEC WHEN PFRMD Colonoscopy ERCP DX COLLECTION SPECIMEN BRUSHING/WASHING 06/11/15 Cholangiopancreatography (ERCP) inpt [facility] ESOPHAGOGASTRODUODENOSCOPY TRANSORAL DIAGNOSTIC EGD [facility] FILTER TONSILLECTOMY HX TOTAL ABDOMINAL HYSTERECT W/WO RMVL TUBE OVARY Hysterectomy, NOÉ FAMILY HISTORY Problem Relation Age of Onset None Mother None Father None Brother None Sister Social History Tobacco Use Smoking status: Former Smokeless tobacco: Never Vaping Use Vaping status: current everyday user Current Outpatient Medications Medication Sig Ascorbic Acid (VITAMIN C) 1,000 mg tablet Take 1 tablet by mouth daily at bedtime. furosemide (LASIX) 40 mg tablet Take 40 mg by mouth once daily. metoprolol tartrate, short acting, (LOPRESSOR) 25 mg tablet Take 25 mg by mouth twice daily. Methenamine Hippurate (HIPREX) 1 gram tablet Take 1 g by mouth once daily. linaCLOtide (LINZESS) 290 mcg capsule Take 290 mcg by mouth once daily. ondansetron (ZOFRAN) 4 mg tablet Take 4 mg by mouth every 8 hours as needed for nausea/vomiting. nitrofurantoin monohydrate and macrocrystal (MACROBID) 100 mg capsule Take 25 mg by mouth once daily. potassium chloride 20 mEq TbER Take 20 mEq by mouth twice daily. venlafaxine ER (EFFEXOR XR) 150 mg 24 hr capsule Take 150 mg by mouth once daily. VALACYCLOVIR HCL (VALTREX ORAL) Take 500 mg by mouth once daily. fluconazole (DIFLUCAN) 150 mg tablet Take 1 tablet by mouth every 72 hours for 2 doses. clonazePAM (KLONOPIN) 0.5 mg tablet Take one tablet as needed for prolonged convulsive seizure or cluster or 3 or more seizures in 24 hours. Do not exceed more than 1 tablet per day. 10 tablets per 30 days. lacosamide (VIMPAT) 100 mg tab 1 tab in am and 2 tabs in pm zonisamide (ZONEGRAN) 100 mg capsule Take 4 capsules by mouth once daily. 4 capsules a day ondansetron orally disintegrating (ZOFRAN ODT) 4 mg disintegrating tablet Take 1 tablet by mouth every 6 hours as needed for nausea/vomiting. hydrOXYzine HCl (ATARAX) 50 mg tablet Take 50 mg by mouth four times daily. (Patient not taking: Reported on 05/31/2024) dicyclomine (BENTYL) 20 mg tablet Take 20 mg by mouth four times daily as needed. (Patient not taking: Reported on 05/31/2024) magnesium oxide 400 mg magnesium tab Take 1 tablet by mouth once daily. (Patient not taking: Reported on 05/31/2024) ZUBSOLV 8.6-2.1 mg subl Dissolve 2 tablets under the tongue once daily. No current facility-administered medications for this visit. Allergies As of Date: 05/31/2024 Allergen Noted Reaction MORPHINE 04/12/2016 Other: See Comments NEURONTIN [GABAPENTIN] 10/23/2013 Intolerance PENICILLINS 10/23/2013 Intolerance SULFA (SULFONAMIDE ANTIBIOTICS) 10/23/2013 Intolerance Fully Assessed 05/31/2024 REVIEW OF SYSTEMS Abdomen: No bloating, early satiety, indigestion, or increased flatulence. No abdominal pain, nausea, vomiting, diarrhea, or constipation. Bladder: No dysuria, gross hematuria, urinary frequency, urinary urgency, or incontinence. Breast: No breast lumps, nipple d/c, overlying skin changes, redness or skin retraction. Exp (more content not included)... [facility] 05-31-2024 History of Present illness Narrative The sensitive examination was discussed with the Patient or Patient's Authorized Chain Hoist Operator. As applicable, any other physician, advance practice provider, medical student, or other health professional student that will be observing or involved in the sensitive examination for educational or training purposes was discussed with the Patient or Authorized Chain Hoist Operator. The Patient or Authorized Chain Hoist Operator has agreed to proceed with the sensitive examination. (Sensitive examination includes inspection and/or palpation of the breasts, pelvis, prostate and anorectal regions) Overhead Foreman offered: Patient declines. Dorothea Rutledge is a 48 year old female who presents for problem visit bleeding perineal lesion for 4 year(s). HPI: lesion at vaginal opening that is painful and bleeds with intercourse. Has been present for at least 4 years. Not sure if its larger. Is currently taking keflex for a UTI. Usually gets a yeast infection with antibiotics OB History No obstetric history on file. 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 LMP: Hysterectomy Age at Menarche: Age at First : Age at Menopause: 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 Comments: Sexual Activity: Yes; Male Contraception: Surgical PAST MEDICAL HISTORY Diagnosis Date Abnormal LFTs Anxiety Common bile duct stone CVA (cerebral infarction) Depression DVT (deep venous thrombosis) (HCC) Factor V Leiden (HCC) HLD (hyperlipidemia) HTN (hypertension) Right upper quadrant pain PAST SURGICAL HISTORY Procedure Laterality Date APPENDECTOMY DELIVERY ONLY , low transverse and horizontal and vertical CHOLECYSTECTOMY Cholecystectomy COLONOSCOPY FLX DX W/COLLJ SPEC WHEN PFRMD Colonoscopy ERCP DX COLLECTION SPECIMEN BRUSHING/WASHING 06/11/15 Cholangiopancreatography (ERCP) inpt [facility] ESOPHAGOGASTRODUODENOSCOPY TRANSORAL DIAGNOSTIC EGD [facility] FILTER TONSILLECTOMY HX TOTAL ABDOMINAL HYSTERECT W/WO RMVL TUBE OVARY Hysterectomy, NOÉ FAMILY HISTORY Problem Relation Age of Onset None Mother None Father None Brother None Sister Social History Tobacco Use Smoking status: Former Smokeless tobacco: Never Vaping Use Vaping status: current everyday user Current Outpatient Medications Medication Sig Ascorbic Acid (VITAMIN C) 1,000 mg tablet Take 1 tablet by mouth daily at bedtime. furosemide (LASIX) 40 mg tablet Take 40 mg by mouth once daily. metoprolol tartrate, short acting, (LOPRESSOR) 25 mg tablet Take 25 mg by mouth twice daily. Methenamine Hippurate (HIPREX) 1 gram tablet Take 1 g by mouth once daily. linaCLOtide (LINZESS) 290 mcg capsule Take 290 mcg by mouth once daily. ondansetron (ZOFRAN) 4 mg tablet Take 4 mg by mouth every 8 hours as needed for nausea/vomiting. nitrofurantoin monohydrate and macrocrystal (MACROBID) 100 mg capsule Take 25 mg by mouth once daily. potassium chloride 20 mEq TbER Take 20 mEq by mouth twice daily. venlafaxine ER (EFFEXOR XR) 150 mg 24 hr capsule Take 150 mg by mouth once daily. VALACYCLOVIR HCL (VALTREX ORAL) Take 500 mg by mouth once daily. fluconazole (DIFLUCAN) 150 mg tablet Take 1 tablet by mouth every 72 hours for 2 doses. clonazePAM (KLONOPIN) 0.5 mg tablet Take one tablet as needed for prolonged convulsive seizure or cluster or 3 or more seizures in 24 hours. Do not exceed more than 1 tablet per day. 10 tablets per 30 days. lacosamide (VIMPAT) 100 mg tab 1 tab in am and 2 tabs in pm zonisamide (ZONEGRAN) 100 mg capsule Take 4 capsules by mouth once daily. 4 capsules a day ondansetron orally disintegrating (ZOFRAN ODT) 4 mg disintegrating tablet Take 1 tablet by mouth every 6 hours as needed for nausea/vomiting. hydrOXYzine HCl (ATARAX) 50 mg tablet Take 50 mg by mouth four times daily. (Patient not taking: Reported on 05/31/2024) dicyclomine (BENTYL) 20 mg tablet Take 20 mg by mouth four times daily as needed. (Patient not taking: Reported on 05/31/2024) magnesium oxide 400 mg magnesium tab Take 1 tablet by mouth once daily. (Patient not taking: Reported on 05/31/2024) ZUBSOLV 8.6-2.1 mg subl Dissolve 2 tablets under the tongue once daily. No current facility-administered medications for this visit. Allergies As of Date: 05/31/2024 Allergen Noted Reaction MORPHINE 04/12/2016 Other: See Comments NEURONTIN [GABAPENTIN] 10/23/2013 Intolerance PENICILLINS 10/23/2013 Intolerance SULFA (SULFONAMIDE ANTIBIOTICS) 10/23/2013 Intolerance Fully Assessed 05/31/2024 REVIEW OF SYSTEMS Abdomen: No bloating, early satiety, indigestion, or increased flatulence. No abdominal pain, nausea, vomiting, diarrhea, or constipation. Bladder: No dysuria, gross hematuria, urinary frequency, urinary urgency, or incontinence. Breast: No breast lumps, nipple d/c, overlying skin changes, redness or skin retraction. Expanded ROS: N/A Allergies and current medication updated:Yes EXAM: BP 124/82 Wt 231 lb (104.8kg) GENERAL: pleasant, female in no apparent distress HEENT: Normocephalic, atraumatic, mucus membranes moist, and no lesions NECK: full range of motion DERMATOLOGY: Normal, without lesions, non-icteric, and non-hirsute BREAST: deferred CHEST: Normal inspiratory effort ABDOMEN: Deferred PELVIC: normal Bartholin's glands, urethra, Candelaria Arenas's glands, vulvar lesion skin tag on perineum. 6 o'clock in reference to introitus BIMANUAL: deferred NEURO: alert and oriented x3,exam grossly non-focal EXTREMITIES: normal ASSESSMENT AND PLAN: Encounter Diagnosis ICD-10-CM 1. Vulvar skin tag N90.89 SURGICAL PATHOLOGY 2. Vaginal yeast infection B37.31 Skin tag removed Lynn Maier MD documented in this encounter [facility] 03-05-2024 Hospital Discharge instructions Sally Bourgeois PA-C - 03/05/2024 6:20 PM EDT Hold your Coumadin tonight. Please call the Coumadin clinic tomorrow to discuss how to move forward. The following attachments cannot be sent through Care Everywhere.Taking oral medicines for blood clots (Danish)documented in this encounter [facility] Work Phone: 03-05-2024 Emergency department Note HPI Chief Complaint Patient presents with Abdominal Pain Amb to ED with c/o abd pain. She reports that she had a bloody nose this am and then started having emesis with blood in it. She is on Coumadin for a PE. EKG done at Patient is concerned of vomiting blood after having a nosebleed earlier today. She is also having a worsening of her chronic abdominal pain. She is also nauseated which is chronic as well. Denies any fever or chills. Patient states the nosebleed was easily controlled with Kleenex into the nostril. And compression. Patient recently seen in the hospital for chronic pancreatitis and PE. She is currently on Coumadin. History provided by: Patient [place] Coma Scale Score: 15 Patient History Past Medical History: Diagnosis Date Awareness under anesthesia Depression Diabetes mellitus (Multi) DVT (deep venous thrombosis) (Multi) Factor V Leiden (Multi) Pancreatitis (HHS-HCC) PE (pulmonary thromboembolism) (Multi) Seizure (Multi) Stroke (Multi) Past Surgical History: Procedure Laterality Date APPENDECTOMY SECTION, LOW TRANSVERSE x2 CHOLECYSTECTOMY ERCP W/ PLASTIC STENT PLACEMENT HYSTERECTOMY IR CVC PORT PLACEMENT 08/26/2023 IR CVC PORT PLACEMENT 08/26/2023 [facility] ANGIO MR HEAD ANGIO WO IV CONTRAST 10/16/2017 MR HEAD ANGIO WO IV CONTRAST [facility] MR NECK ANGIO WO IV CONTRAST 10/16/2017 MR NECK ANGIO WO IV CONTRAST [facility] US GUIDED PERCUTANEOUS PLACEMENT 06/08/2019 US GUIDED PERCUTANEOUS PLACEMENT [facility] Family History Problem Relation Name Age of Onset Coronary artery disease Mother Social History Tobacco Use Smoking status: Never Smokeless tobacco: Current Tobacco comments: vapes Vaping Use Vaping status: Every Day Substances: Nicotine, have a marijuana card Devices: Refillable tank Substance Use Topics Alcohol use: Not Currently Drug use: Yes Types: Marijuana Physical Exam ED Triage Vitals Temperature Heart Rate Respirations BP 03/05/24 1726 03/05/24 1726 03/05/24 1726 03/05/24 1726 37 C (98.6 F) (!) 114 18 (!) 152/106 Pulse Ox Temp src Heart Rate Source Patient Position 03/05/24 1726 -- 03/05/24 1819 -- 98 % Monitor BP Location FiO2 (%) -- -- Physical Exam Vitals and nursing note reviewed. Constitutional: General: She is not in acute distress. Appearance: Normal appearance. She is well-developed and well-groomed. She is morbidly obese. She is not ill-appearing or toxic-appearing. HENT: Head: Normocephalic. Nose: Nose normal. Comments: No active areas of bleeding at time of exam Mouth/Throat: Lips: [place]. No lesions. Mouth: Mucous membranes are moist. Eyes: General: No scleral icterus. Cardiovascular: Rate and Rhythm: Regular rhythm. Tachycardia present. Heart sounds: Normal heart sounds. Pulmonary: Effort: Pulmonary effort is normal. Breath sounds: Normal breath sounds and air entry. Abdominal: General: Bowel sounds are normal. Palpations: Abdomen is soft. Skin: General: Skin is warm. Capillary Refill: Capillary refill takes less than 2 seconds. Neurological: General: No focal deficit present. Mental Status: She is alert and oriented to person, place, and time. Cranial Nerves: No cranial nerve deficit or facial asymmetry. Motor: No weakness. Gait: Gait is intact. Psychiatric: Attention and Perception: Attention and perception normal. Mood and Affect: Mood and affect normal. Speech: Speech normal. Behavior: Behavior normal. Behavior is cooperative. Thought Content: Thought content normal. Cognition and Memory: Cognition and memory normal. Judgment: Judgment normal. ED Course & MDM Diagnoses as of 03/05/241836 History of epistaxis Hematemesis, unspecified whether nausea present Anticoagulated Medical Decision Making Patient is concerned of vomiting blood after having a nosebleed earlier today. She is also having a worsening of her chronic abdominal pain. She is also nauseated which is chronic as well. Denies any fever or chills. Patient states the nosebleed was easily controlled with Kleenex into the nostril. And compression. Patient recently seen in the hospital for chronic pancreatitis and PE. She is currently on Coumadin. Ddx: Post epistaxis hematemesis, Dasha-Fitzpatrick tear, food product, chronic pain, anemia, hypercoagulable state, other As patient has been recently placed on anticoagulants will check coags as well as hemoglobin and hematocrit with chemistries Patient's INR is supratherapeutic at 3.9. She is encouraged to hold her nightly dose today and then contact the Coumadin clinic tomorrow for further direction. Patient's hemoglobin hematocrit are stable. Patient has not had any more episodes of vomiting or additional nosebleeds. She had a singular episode prior to arrival. Patient is complaining of worsening of her chronic nausea and pain therefore she was treated with Tylenol and Reglan p.o. while in the ED. She is encouraged to follow-up with her specialist to continue evaluating her chronic issues. At this time the vomiting of blood seems consistent with a nosebleed that started just prior to her vomiting. Patient is stable for discharge and continued follow-up. Patient discharged home in improved stable condition I did discuss this case with attending who agreed with plan Problems Addressed: Anticoagulated: Details: Slight supratherapeutic at this time. Patient is to hold night dose and contact Coumadin clinic in the morning for further direction Hematemesis, unspecified whether nausea present: undiagnosed new problem with uncertain prognosis Details: From nosebleed History of epistaxis: undiagnosed new problem with uncertain prognosis Details: Easily controlled with compression Amount and/or Complexity of Data Reviewed Labs: ordered. Decision-making details documented in ED Course. ECG/medicine tests: ordered and independent interpretation performed. Decision-making details documented in ED Course. Details: Read by myself and attending showing normal sinus tachycardia at a ventricular rate of 1 105 bpm[address] Normal axis. No ST segment elevation. DC interval 136 with a QT of 328 Procedure Procedures Sally Bourgeois PA-C 03/05/24 1837 documented in this encounter [facility] Work Phone: 03-05-2024 Physician Emergency department Note HPI Chief Complaint Patient presents with Abdominal Pain Amb to ED with c/o abd pain. She reports that she had a bloody nose this am and then started having emesis with blood in it. She is on Coumadin for a PE. EKG done at Patient is concerned of vomiting blood after having a nosebleed earlier today. She is also having a worsening of her chronic abdominal pain. She is also nauseated which is chronic as well. Denies any fever or chills. Patient states the nosebleed was easily controlled with Kleenex into the nostril. And compression. Patient recently seen in the hospital for chronic pancreatitis and PE. She is currently on Coumadin. History provided by: Patient [place] Coma Scale Score: 15 Patient History Past Medical History: Diagnosis Date Awareness under anesthesia Depression Diabetes mellitus (Multi) DVT (deep venous thrombosis) (Multi) Factor V Leiden (Multi) Pancreatitis (HHS-HCC) PE (pulmonary thromboembolism) (Multi) Seizure (Multi) Stroke (Multi) Past Surgical History: Procedure Laterality Date APPENDECTOMY SECTION, LOW TRANSVERSE x2 CHOLECYSTECTOMY ERCP W/ PLASTIC STENT PLACEMENT HYSTERECTOMY IR CVC PORT PLACEMENT 08/26/2023 IR CVC PORT PLACEMENT 08/26/2023 [facility] ANGIO MR HEAD ANGIO WO IV CONTRAST 10/16/2017 MR HEAD ANGIO WO IV CONTRAST [facility] MR NECK ANGIO WO IV CONTRAST 10/16/2017 MR NECK ANGIO WO IV CONTRAST [facility] US GUIDED PERCUTANEOUS PLACEMENT 06/08/2019 US GUIDED PERCUTANEOUS PLACEMENT [facility] Family History Problem Relation Name Age of Onset Coronary artery disease Mother Social History Tobacco Use Smoking status: Never Smokeless tobacco: Current Tobacco comments: vapes Vaping Use Vaping status: Every Day Substances: Nicotine, have a marijuana card Devices: [employer] tank Substance Use Topics Alcohol use: Not Currently Drug use: Yes Types: Marijuana Physical Exam ED Triage Vitals Temperature Heart Rate Respirations BP 03/05/24 1726 03/05/24 1726 03/05/24 1726 03/05/24 1726 37 C (98.6 F) (!) 114 18 (!) 152/106 Pulse Ox Temp src Heart Rate Source Patient Position 03/05/24 1726 -- 03/05/24 1819 -- 98 % Monitor BP Location FiO2 (%) -- -- Physical Exam Vitals and nursing note reviewed. Constitutional: General: She is not in acute distress. Appearance: Normal appearance. She is well-developed and well-groomed. She is morbidly obese. She is not ill-appearing or toxic-appearing. HENT: Head: Normocephalic. Nose: Nose normal. Comments: No active areas of bleeding at time of exam Mouth/Throat: Lips: [place]. No lesions. Mouth: Mucous membranes are moist. Eyes: General: No scleral icterus. Cardiovascular: Rate and Rhythm: Regular rhythm. Tachycardia present. Heart sounds: Normal heart sounds. Pulmonary: Effort: Pulmonary effort is normal. Breath sounds: Normal breath sounds and air entry. Abdominal: General: Bowel sounds are normal. Palpations: Abdomen is soft. Skin: General: Skin is warm. Capillary Refill: Capillary refill takes less than 2 seconds. Neurological: General: No focal deficit present. Mental Status: She is alert and oriented to person, place, and time. Cranial Nerves: No cranial nerve deficit or facial asymmetry. Motor: No weakness. Gait: Gait is intact. Psychiatric: Attention and Perception: Attention and perception normal. Mood and Affect: Mood and affect normal. Speech: Speech normal. Behavior: Behavior normal. Behavior is cooperative. Thought Content: Thought content normal. Cognition and Memory: Cognition and memory normal. Judgment: Judgment normal. ED Course & MDM Diagnoses as of 03/05/24 1837 History of epistaxis Hematemesis, unspecified whether nausea present Anticoagulated Medical Decision Making Patient is concerned of vomiting blood after having a nosebleed earlier today. She is also having a worsening of her chronic abdominal pain. She is also nauseated which is chronic as well. Denies any fever or chills. Patient states the nosebleed was easily controlled with Kleenex into the nostril. And compression. Patient recently seen in the hospital for chronic pancreatitis and PE. She is currently on Coumadin. Ddx: Post epistaxis hematemesis, Dasha-Fitzpatrick tear, food product, chronic pain, anemia, hypercoagulable state, other As patient has been recently placed on anticoagulants will check coags as well as hemoglobin and hematocrit with chemistries Patient's INR is supratherapeutic at 3.9. She is encouraged to hold her nightly dose today and then contact the Coumadin clinic tomorrow for further direction. Patient's hemoglobin hematocrit are stable. Patient has not had any more episodes of vomiting or additional nosebleeds. She had a singular episode prior to arrival. Patient is complaining of worsening of her chronic nausea and pain therefore she was treated with Tylenol and Reglan p.o. while in the ED. She is encouraged to follow-up with her specialist to continue evaluating her chronic issues. At this time the vomiting of blood seems consistent with a nosebleed that started just prior to her vomiting. Patient is stable for discharge and continued follow-up. Patient discharged home in improved stable condition I did discuss this case with attending who agreed with plan Problems Addressed: Anticoagulated: Details: Slight supratherapeutic at this time. Patient is to hold night dose and contact Coumadin clinic in the morning for further direction Hematemesis, unspecified whether nausea present: undiagnosed new problem with uncertain prognosis Details: From nosebleed History of epistaxis: undiagnosed new problem with uncertain prognosis Details: Easily controlled with compression Amount and/or Complexity of Data Reviewed Labs: ordered. Decision-making details documented in ED Course. ECG/medicine tests: ordered and independent interpretation performed. Decision-making details documented in ED Course. Details: Read by myself and attending showing normal sinus tachycardia at a ventricular rate of 1 [address] bpm[address] Normal axis. No ST segment elevation. DC interval 136 with a QT of 328 Procedure Procedures Sally Bourgeois PA-C 03/05/24 1837 [facility] Work Phone: 03-02-2024 History of Present illness Narrative Dorothea Rutledge is a 48 y.o. female on day 3 of admission presenting with Acute pancreatitis without necrosis or infection, unspecified ([facility]). Subjective Patient seems to be feeling better than yesterday Denies nausea vomiting or diarrhea and tolerating diet Ongoing intermittent pain Denies fever chills Objective Physical Exam General Appearance: AAO x 3, not in acute distress Skin: skin color pink, warm, and dry; no suspicious rashes or lesions Eyes : PERRL, EOM's intact ENT: mucous membranes pink and moist Neck: normocephalic Respiratory: lungs clear to auscultation anteriorly; no wheezing, rhonchi, or crackles. Heart: regular rate and rhythm. telemetry shows sinus rhythm Abdomen: Nondistended, positive bowel sounds x4, soft, nontender Extremities: no edema Peripheral pulses: normal x4 extremities Neuro: alert, coherent and conversant, no focal motor deficits Last Recorded Vitals Blood pressure 133/78, pulse 89, temperature 36.4 C (97.5 F), temperature source Temporal, resp. rate 18, height 1.626 m (5' 4 ), weight 106 kg (234 lb 2.1 oz), SpO2 93%. Intake/Output last 3 Shifts: I/O last 3 completed shifts: In: 3727 (35.1 mL/kg) [P.O.:250; I.V.:3376 (31.8 mL/kg); IV Piggyback:101] Out: 6000 (56.5 mL/kg) [Urine:6000 (1.6 mL/kg/hr)] Weight: 106.2 kg Relevant Results This patient has a central line Reason for the central line remaining today? Parenteral nutrition Assessment/Plan 48-year-old female with #1 recurrent acute pancreatitis Supportive care Overall clinically improving Hemodynamically stable Tolerating diet Plan for DC Stop IV narcotics On oxycodone 5 mg every 8 hours as needed for breakthrough pain Can resume home regimen upon discharge through pain management Discussed with patient PPI for GI prophylaxis #2 history of epilepsy Depakote Seizure precautions #3 anxiety depression On venlafaxine, Klonopin, Cogentin, Abilify #4 history of CHF, likely diastolic Echo 02/28/2024 with EF 60% No signs of volume overload Continue Lasix and metoprolol Follow cardiology outpatient #5 chronic pain syndrome Follow pain management outpatient #6 history of diabetes mellitus type 2 Monitor fingerstick on insulin sliding scale Encourage weight loss and carb controlled diet #7 acute pulmonary embolism and factor V Leiden deficiency Supratherapeutic INR 3.2 today Hold Coumadin and will have to continue Coumadin 2.5 mg p.o. daily outpatient and adjust as deemed appropriate Stop Lovenox injection that was initially prescribed for discharge but now that INR is high so stop Lovenox and discontinue Coumadin with the reduced dose when INR therapeutic again Discussed with pharmacy To follow Coumadin clinic for Coumadin dosing based on INR Supportive care and continue current medicines Plan for DC, follow case management appeal was upheld Brea Nolen MD Pt reviewed in care rounds this morning. Pt medically discharged. Pt filed appeal with [employer] MARTINEZ yesterday and SW received fax response at 10:25 AM today 03/02 stated medical decision to discharge Pt was upheld by insurance and Pt liability for charges for Pt's care will begin 03/03. SW met w/ Pt at bedside. Pt stated understanding and stated Pt plans to leave hospital today. Pt requested follow up from Hospitalist Dr. Nolen regarding Pt's abdominal scan and requested medications to manage Pt's current pain levels. SW communicated re: Pt's requests and receipt of appeal decision to Dr. Nolen. SW received tc from Fady @ [employer] confirming that SW had sent appropriate items to [facility] and SW confirmed this had been done. Same requested that SW fax the IMM to [employer] and SW did so. No further CT/SW assistance needs anticipated. Mime Artist and CARINA/Yamilet met with patient at bedside to listen as patient discussed concerns related to patient's hospital discharge today. TIMUR and CARINA/Yamilet offered support and understanding. Patient decided to appeal hospital discharge; TIMUR supported patient during phone call to [facility]. - 1730: TIMUR attached/uploaded all supporting documentation for [employer] appeal to [facility] portal. Appeal Case no. [id number]. Plan for patient to return home pending outcome of discharge appeal with [facility]. Care Transitions to follow and assist. FLORENTINO Courtney Care Transitions: Patient reviewed in care round meeting this AM; Per Hospital provider she is medically ready for discharge today. Met with patient at bedside. Discharge orders have been placed. Patient voices she does not feel medically ready and has concerns about being started on Coumadin yesterday and not reaching a therapeutic range before discharging to home. IMM reviewed, patient signed, copy provided. Voiced she is going to appeal discharge due to not feeling safe to go home yet. Stated concern about bridging with Lovenox at home until therapeutic on Coumadin due to past history of blood clots while on Lovenox. Spoke with Dr. Nolen [facility] provider about patient medication concerns and she would like to be therapeutic before leaving. Provider feels she can safely bridge medications at home and be set up with out patient coumadin clinic to maintain therapeutic levels. Yamilet Garcia RN/TCC - [id number] Returned to patient room with SW at bedside to discuss provider instructions for discharge. Patient became tearful and would like to appeal due to not feeling medically safe to return home today. SW remained at bedside to assist with appeal process. SW to follow for appeal assistance. Yamilet Garcia RN/TCC Spiritual Care Visit Clinical Encounter Type Visited With: Patient Routine Visit: Follow-up Continue Visiting: Yes Referral To: Nurse Lutheran Encounters Lutheran Needs: Sacred text, Literature, Spiritual care brochure, Prayer Sacramental Encounters Communion Given Indicator: No Patient Spiritual Care Encounters Child Adaptation to Hospital: Consistently demonstrated Suffering Severity: Moderate Fear Level: Moderate Feelings of Loneliness: Moderate Feelings of Hopelessness: Moderate Coping: Sometimes demonstrated Social Interaction: Participates in daily activites Family Spiritual Care Encounters Family Participation in Care: Sometimes demonstrated Family Support During Treatment: Sometimes demonstrated Caregiver-Patient Relationship: Moderately compromised PC-7 Assessment (Level of Unmet Needs) Existential Struggle: Some Spiritual/Lutheran Struggle: Further assess Legacy: Further assess Relationships: Further assess Fear of /Dying: Substantial Values/Medical Decision Making: Substantial Ritual/Other: None PC-7 Score: 5 Taxonomy Intended Effects: Aligning care plan with patient's values, Build relationship of care and support, Convey a calming presence, Establish rapport and connectedness Methods: Encourage self care Interventions: Acknowledge response to difficult experience, Active listening, Ask guided questions about pam, Ask guided questions about purpose Dorothea Rutledge is a 48 y.o. female on day 2 of admission presenting with Acute pancreatitis without necrosis or infection, unspecified ([facility]). Subjective Patient seen at bedside this morning. Resting quietly in bed appears to be in no pain. No effect from Relistor last night feels grumbling in her stomach has ordered breakfast but is not had solid food. Denies any nausea or vomiting overnight. Persistent pain right rib cage area worse with breathing coughing, felt to be related to acute pulmonary embolism. Objective Physical Exam Vitals and nursing note reviewed. Constitutional: Appearance: Normal appearance. HENT: Head: Normocephalic. Mouth/Throat: Mouth: Mucous membranes are moist. Pharynx: Oropharynx is clear. Eyes: Conjunctiva/sclera: Conjunctivae normal. Pupils: Pupils are equal, round, and reactive to light. Cardiovascular: Rate and Rhythm: Normal rate and regular rhythm. Pulses: Normal pulses. Heart sounds: Normal heart sounds. Pulmonary: Effort: Pulmonary effort is normal. Breath sounds: Normal breath sounds. Abdominal: General: Abdomen is flat. Bowel sounds are normal. There is distension. Palpations: Abdomen is soft. Tenderness: There is no abdominal tenderness. Musculoskeletal: Cervical back: Normal range of motion and neck supple. Skin: General: Skin is warm and dry. Neurological: General: No focal deficit present. Mental Status: She is alert and oriented to person, place, and time. Psychiatric: Behavior: Behavior normal. Last Recorded Vitals Blood pressure 125/81, pulse 83, temperature 36 C (96.8 F), temperature source Temporal, resp. rate 17, height 1.626 m (5' 4 ), weight 106 kg (234 lb 2.1 oz), SpO2 96%. Intake/Output last 3 Shifts: I/O last 3 completed shifts: In: 4532.7 (42.7 mL/kg) [P.O.:840; I.V.:3389.7 (31.9 mL/kg); IV Piggyback:303] Out: - (0 mL/kg) Weight: 106.2 kg Relevant Results * Cannot find OR log * Last relevant procedure: Assessment/Plan Principal Problem: Acute pancreatitis without necrosis or infection, unspecified ([facility]) Results for orders placed or performed during the hospital encounter of 02/27/24 (from the past 24 hour(s)) Heparin Assay Result Value Ref Range Heparin Unfractionated 0.1 See Comment Below for Therapeutic Ranges IU/mL POCT GLUCOSE Result Value Ref Range POCT Glucose 155 (H) 74 - 99 mg/dL Heparin Assay Result Value Ref Range Heparin Unfractionated 0.1 See Comment Below for Therapeutic Ranges IU/mL POCT GLUCOSE Result Value Ref Range POCT Glucose 149 (H) 74 - 99 mg/dL POCT GLUCOSE Result Value Ref Range POCT Glucose 142 (H) 74 - 99 mg/dL Heparin Assay Result Value Ref Range Heparin Unfractionated 0.2 See Comment Below for Therapeutic Ranges IU/mL CBC Result Value Ref Range WBC 6.0 4.4 - 11.3 x10*3/uL nRBC 0.0 0.0 - 0.0 /100 WBCs RBC 3.87 (L) 4.00 - 5.20 x10*6/uL Hemoglobin 10.7 (L) 12.0 - 16.0 g/dL Hematocrit 34.9 (L) 36.0 - 46.0 % MCV 90 80 - 100 fL MCH 27.6 26.0 - 34.0 pg MCHC 30.7 (L) 32.0 - 36.0 g/dL RDW 14.2 11.5 - 14.5 % Platelets 321 150 - 450 x10*3/uL Heparin Assay Result Value Ref Range Heparin Unfractionated 0.4 See Comment Below for Therapeutic Ranges IU/mL CBC Result Value Ref Range WBC 5.6 4.4 - 11.3 x10*3/uL nRBC 0.0 0.0 - 0.0 /100 WBCs RBC 4.01 4.00 - 5.20 x10*6/uL Hemoglobin 10.8 (L) 12.0 - 16.0 g/dL Hematocrit 35.6 (L) 36.0 - 46.0 % MCV 89 80 - 100 fL MCH 26.9 26.0 - 34.0 pg MCHC 30.3 (L) 32.0 - 36.0 g/dL RDW 14.0 11.5 - 14.5 % Platelets 339 150 - 450 x10*3/uL Protime-INR Result Value Ref Range Protime 14.9 (H) 9.8 - 12.8 seconds INR 1.3 (H) 0.9 - 1.1 Heparin Assay Result Value Ref Range Heparin Unfractionated 0.3 See Comment Below for Therapeutic Ranges IU/mL Basic Metabolic Panel Result Value Ref Range Glucose 136 (H) 74 - 99 mg/dL Sodium 135 (L) 136 - 145 mmol/L Potassium 3.8 3.5 - 5.3 mmol/L Chloride 100 98 - 107 mmol/L Bicarbonate 25 21 - 32 mmol/L Anion Gap 14 10 - 20 mmol/L Urea Nitrogen 8 6 - 23 mg/dL Creatinine 0.64 0.50 - 1.05 mg/dL eGFR >90 >60 mL/min/1.73m*2 Calcium 9.0 8.6 - 10.3 mg/dL POCT GLUCOSE Result Value Ref Range POCT Glucose 134 (H) 74 - 99 mg/dL Patient with 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 Underwent complex drainage procedure pancreatic pseudocyst in November. Successfully drained. Had acute pancreatitis following ERCP for retained common duct stone after urgent cholecystectomy in mid January. Transferred to [facility] for treatment of pancreatitis. Ended up here after discharge from [facility] with recurrent pancreatitis. Transaminases again have normalized. Pain is consistent with acute pulmonary emboli. Now dealing with chronic constipation related to her narcotic abuse. OARRS report was reviewed. Patient receiving multiple narcotics and controlled drugs from multiple practitioners traveling from [facility] to walk but cannot her to refill meds. I have not yet addressed this with the patient. Will give second dose of Relistor today. I encouraged the patient to get up out of bed and start moving this would certainly help from a medical point of view to stimulate bowel movement. Will advance diet as able I spent 15 minutes in the professional and overall care of this patient. Cruzito Garcia DO Dorothea Rutledge is a 48 y.o. female on day 1 of admission presenting with Acute pancreatitis without necrosis or infection, unspecified ([facility]). Subjective Patient laying in bed requesting additional pain control. States pain in her mid lower abdomen and right rib area. Patient is currently on 1 mg of Dilaudid every 3 hours. Patient was not happy when I suggested I would reach out to her pain management physician to stay in compliance with this care plan. OARRS report from pain management on 02/02/2024 revealed, Oxycodone small amount from different providers and medical marijuana plus ketamine from us. She is wanting to switch from Lovenox to Coumadin. Informed patient that would have to be at the discretion of her vascular doctor or fire alarm repairer. Patient also requested an increase in dose of her clonazepam at at bedtime to her regular home dose. Objective Last Recorded Vitals BP 114/84 (BP Location: Left arm, Patient Position: Sitting) Pulse 77 Temp 35.8 C (96.4 F) (Temporal) Resp 18 Wt 106 kg (234 lb 2.1 oz) SpO2 96% Intake/Output last 3 Shifts: Intake/Output Summary (Last 24 hours) at 02/29/2024 1135 Last data filed at 02/29/2024 0900 Gross per 24 hour Intake 3541.37 ml Output -- Net 3541.37 ml Admission Weight Weight: 103 kg (226 lb) (02/27/24 1741) Daily Weight 02/28/24 : 106 kg (234 lb 2.1 oz) Image Results ECG 12 Lead Sinus tachycardia Otherwise normal ECG When compared with ECG of 15-FEB-2024 20:28, No significant change was found Confirmed by Dominick Naik ([id number]) on 02/28/2024 9:53:18 PM Lower [place] [address] [id number], Vascular Lab Report [facility] LOWER EXTREMITY VENOUS DUPLEX BILATERAL Patient Name: DOROTHEA Lees Physician: [id number] Princess Ramírez MD Study Date: 02/28/2024 Ordering Provider: [id number] BREA NOLEN MRN/PID: [id number] Fellow: Technologist: Radha Lewis RVT/ Date of /Age: 4 1975 Technologist 2: years Gender: F Admission Status: Inpatient Location [facility] Performed: Diagnosis/ICD: Other pulmonary embolism without acute cor pulmonale-I26.99 CPT Codes: 31981 Peripheral venous duplex scan for DVT complete CONCLUSIONS: Right Lower Venous: No evidence of acute deep vein thrombus visualized in the right lower extremity. Cannot rule out thrombus in non-visualized posterior tibial and peroneal veins due to body habitus and swelling. Left Lower Venous: No evidence of acute deep vein thrombus visualized in the left lower extremity. Cannot rule out thrombus in non-visualized posterior tibial vein due to swelling and body habitus. Imaging & Doppler Findings: Right Compressible Thrombus Flow Distal External Iliac Yes None Spontaneous/Phasic CFV Yes None Spontaneous/Phasic PFV Yes None FV Proximal Yes None Spontaneous/Phasic FV Mid Yes None FV Distal Yes None Popliteal Yes None Spontaneous/Phasic Left Compress Thrombus Flow Distal External Iliac Yes None Spontaneous/Phasic CFV Yes None Spontaneous/Phasic PFV Yes None FV Proximal Yes None Spontaneous/Phasic FV Mid Yes None FV Distal Yes None Popliteal Yes None Spontaneous/Phasic Peroneal Yes None [id number] Princess Ramírez MD Final Transthoracic Echo (TTE) [place] [address] [id number], TRANSTHORACIC ECHOCARDIOGRAM REPORT Patient Name: DOROTHEA Stanford MATY Reading Physician: [id number] Leon Barrera MD Study Date: 02/28/2024 Ordering Provider: [id number] BREA NOLEN MRN/PID: [id number] Fellow: Nurse: Elyssa Simental RN Date of /Age: 4 1975 / 48 years Brim Buster: UBNNY Higuera RVT Gender: F Additional Staff: Height: 162.56 cm Admit Date: 02/27/2024 Weight: 102.51 kg Admission Status: Inpatient - Routine BSA / BMI: 2.06 m2 / 38.79 kg/m2 Department Location: [address] Blood Pressure: 147 /81 mmHg Study Type: TRANSTHORACIC ECHO (TTE) COMPLETE Diagnosis/ICD: Single subsegmental Pulmonary embolism without acute cor pulmonale-I26.93 Indication: PE CPT Codes: Echo Complete w Full Doppler-25026 Patient History: Pertinent History: No previous echo. Study Detail: The following Echo studies were performed: 2D, M-Mode, Doppler and color flow. Definity used as a contrast agent for endocardial border definition. Total contrast used for this procedure was 2 mL via IV push. A bubble study was not performed. The patient was awake. PHYSICIAN INTERPRETATION: Left Ventricle: Left ventricular systolic function is normal, with an estimated ejection fraction of 60%. There are no regional wall motion abnormalities. The left ventricular cavity size is normal. Spectral Doppler shows a pseudonormal pattern of left ventricular diastolic filling. Left Atrium: The left atrium is normal in size. Right Ventricle: The right ventricle was not well visualized. Unable to determine right ventricular systolic function. Right ventricle is suboptimally visualized but in off-axis views (view 30) appears to have grossly normal size and systolic function. Right Atrium: The right atrium was not well visualized. Aortic Valve: The aortic valve is trileaflet. There is no evidence of aortic valve regurgitation. The peak instantaneous gradient of the aortic valve is 14.7 mmHg. The mean gradient of the aortic valve is 7.0 mmHg. Mitral Valve: The mitral valve is normal in structure. There is no evidence of mitral valve regurgitation. Tricuspid Valve: The tricuspid valve is structurally normal. No evidence of tricuspid regurgitation. Pulmonic Valve: The pulmonic valve is not well visualized. There is no indication of pulmonic valve regurgitation. Pericardium: There is no pericardial effusion noted. There is a pericardial fat pad present. Aorta: The aortic root is normal. CONCLUSIONS: 1. Left ventricular systolic function is normal with a 60% estimated ejection fraction. 2. Spectral Doppler shows a pseudonormal pattern of left ventricular diastolic filling. 3. Poorly visualized anatomical structures due to suboptimal image quality. QUANTITATIVE DATA SUMMARY: 2D MEASUREMENTS: Normal Ranges: Ao Root d: 1.90 cm (2.0-3.7cm) LAs: 3.00 cm (2.7-4.0cm) IVSd: 0.93 cm (0.6-1.1cm) LVPWd: 0.99 cm (0.6-1.1cm) LVIDd: 4.21 cm (3.9-5.9cm) LVIDs: 3.03 cm LV Mass Index: 63.2 g/m2 LV % FS 28.0 % LA VOLUME: Normal Ranges: LA Vol A4C: 18.2 ml (22+/-6mL/m2) LA Vol A2C: 28.1 ml LA Vol BP: 23.4 ml LA Vol Index A4C: 8.8ml/m2 LA Vol Index A2C: 13.6 ml/m2 LA Vol Index BP: 11.3 ml/m2 LA Area A4C: 10.5 cm2 LA Area A2C: 13.5 cm2 LA Major [place] A4C: 5.2 cm LA Major [place] A2C: 5.5 cm LA Volume Index: 13.1 ml/m2 LA Vol A4C: 18.2 ml LA Vol A2C: 27.0 ml M-MODE MEASUREMENTS: Normal Ranges: AoV Exc: 1.50 cm (1.5-2.5cm) AORTA MEASUREMENTS: Normal Ranges: AoV Exc: 1.50 cm (1.5-2.5cm) LV SYSTOLIC FUNCTION BY 2D PLANIMETRY (MOD): Normal Ranges: EF-A4C View: 51.7 % (>=55%) EF-A2C View: 86.8 % EF-Biplane: 76.4 % LV DIASTOLIC FUNCTION: Normal Ranges: MV Peak E: 0.85 m/s (0.7-1.2 m/s) MV Peak A: 0.93 m/s (0.42-0.7 m/s) E/A Ratio: 0.91 (1.0-2.2) MV e' 0.06 m/s (>8.0) MV lateral e' 0.08 m/s MV medial e' 0.07 m/s E/e' Ratio: 14.13 (<8.0) MITRAL VALVE: Normal Ranges: MV DT: 187 msec (150-240msec) AORTIC VALVE: Normal Ranges: AoV Vmax: 1.92 m/s (<=1.7m/s) AoV Peak P.7 mmHg (<20mmHg) AoV Mean P.0 mmHg (1.7-11.5mmHg) LVOT Max Alice: 1.36 m/s (<=1.1m/s) AoV VTI: 30.70 cm (18-25cm) LVOT VTI: 19.90 cm LVOT Diameter: 1.90 cm (1.8-2.4cm) AoV Area, VTI: 1.84 cm2 (2.5-5.5cm2) AoV Area,Vmax: 2.01 cm2 (2.5-4.5cm2) AoV Dimensionless Index: 0.65 RIGHT VENTRICLE: RV Basal 2.53 cm RV Mid 1.39 cm RV Major 5.6 cm TAPSE: 18.9 mm TRICUSPID VALVE/RVSP: Normal Ranges: Peak TR Velocity: 2.68 m/s RV Syst Pressure: 31.7 mmHg (< 30mmHg) PULMONIC VALVE: Normal Ranges: PV Accel Time: 85 msec (>120ms) PV Max Alice: 1.6 m/s (0.6-0.9m/s) PV Max P.6 mmHg [id number] Leon Barrera MD Electronically signed on 02/28/2024 at 10:49:[address] angio chest for pulmonary embolism Narrative: STUDY: CT Angiogram of the Chest; 02/27/2024 11:09 PM INDICATION: Filling defect in right lower lobe. History of pulmonary embolism. COMPARISON: None Available. ACCESSION NUMBER(S): [id number] ORDERING CLINICIAN: MIKE LAND TECHNIQUE: CTA of the chest was performed with intravenous contrast. Images are reviewed and processed at a workstation according to the CT angiogram protocol with 3-D and/or MIP post processing imaging generated. Automated mA/kV exposure control was utilized and patient examination was performed in strict accordance with principles of ALARA. FINDINGS: Pulmonary arteries are adequately opacified with focal embolus right lower lobe medial pulmonary artery.. The thoracic aorta is normal in course and caliber without dissection or aneurysm. The heart is enlarged size without pericardial effusion. Thoracic lymph nodes are not enlarged. There is no pleural effusion, pleural thickening, or pneumothorax. The airways are patent. Lungs are clear without consolidation, interstitial disease, or suspicious nodules. There are a few small calcified granulomas. Upper abdomen demonstrates diffuse fatty infiltration of the liver.. There are no acute fractures. No suspicious bony lesions. Impression: 1.Focal embolus right lower lobe medial pulmonary artery. No findings of heart strain. Critical results were discussed with.Dr. Mike Israel at 1:00 AM. 2.Fatty liver. Signed by Edwin Alejandro DO Physical Exam General Appearance: AAO x 3, not in acute distress Skin: skin color pink, warm, and dry; no suspicious rashes or lesions Eyes : PERRL, EOM's intact ENT: mucous membranes pink and moist Neck: normocephalic Respiratory: lungs clear to auscultation anteriorly; no wheezing, rhonchi, or crackles. Heart: regular rate and rhythm. Abdomen: Nondistended, positive bowel sounds x4, soft, tender Extremities: no edema Peripheral pulses: normal x4 extremities Neuro: alert, coherent and conversant, no focal motor deficits Relevant Results Results for orders placed or performed during the hospital encounter of 02/27/24 (from the past 24 hour(s)) POCT GLUCOSE Result Value Ref Range POCT Glucose 170 (H) 74 - 99 mg/dL POCT GLUCOSE Result Value Ref Range POCT Glucose 129 (H) 74 - 99 mg/dL POCT GLUCOSE Result Value Ref Range POCT Glucose 160 (H) 74 - 99 mg/dL Lipase Result Value Ref Range Lipase 33 9 - 82 U/L Amylase Result Value Ref Range Amylase 25 (L) 29 - 103 U/L CBC Result Value Ref Range WBC 5.7 4.4 - 11.3 x10*3/uL nRBC 0.0 0.0 - 0.0 /100 WBCs RBC 3.82 (L) 4.00 - 5.20 x10*6/uL Hemoglobin 10.5 (L) 12.0 - 16.0 g/dL Hematocrit 34.4 (L) 36.0 - 46.0 % MCV 90 80 - 100 fL MCH 27.5 26.0 - 34.0 pg MCHC 30.5 (L) 32.0 - 36.0 g/dL RDW 14.3 11.5 - 14.5 % Platelets 322 150 - 450 x10*3/uL Basic Metabolic Panel Result Value Ref Range Glucose 144 (H) 74 - 99 mg/dL Sodium 135 (L) 136 - 145 mmol/L Potassium 3.9 3.5 - 5.3 mmol/L Chloride 102 98 - 107 mmol/L Bicarbonate 24 21 - 32 mmol/L Anion Gap 13 10 - 20 mmol/L Urea Nitrogen 9 6 - 23 mg/dL Creatinine 0.64 0.50 - 1.05 mg/dL eGFR >90 >60 mL/min/1.73m*2 Calcium 8.3 (L) 8.6 - 10.3 mg/dL Heparin Assay, UFH Result Value Ref Range Heparin Unfractionated 0.1 See Comment Below for Therapeutic Ranges IU/mL POCT GLUCOSE Result Value Ref Range POCT Glucose 152 (H) 74 - 99 mg/dL Heparin Assay Result Value Ref Range Heparin Unfractionated 0.1 See Comment Below for Therapeutic Ranges IU/mL POCT GLUCOSE Result Value Ref Range POCT Glucose 155 (H) 74 - 99 mg/dL Assessment/Plan 48-year-old female will require admission for a couple of issues. #1 she has pancreatitis. She has a history of chronic pancreatitis. Today she does have a new finding of a new fluid collection which is 2 cm suggestive of either walled off necrosis or developing pseudocyst. I spoke with gastroenterology on-call Dr. Hicks who stated that as long as the fluid collection is less than 6 cm it is treated like a typical pancreatitis. She also has a history of factor V Leiden and has a new PE. She is asymptomatic with this new PE it was an incidental finding on CT scan. She is on Lovenox already 100 mg twice daily. I spoke to hematology on-call Dr. Purvis who also stated the patient can stay here and get started on heparin which was initiated in the emergency department. It turns out she did miss 1 dose of Lovenox about 3 to 4 days ago. Will admit to telemetry service for further evaluation and management. Principal Problem: Acute pancreatitis without necrosis or infection, unspecified ([facility]) Acute on chronic pancreatitis without necrosis -Amylase and lipase within normal limits white blood cell within normal limits -Patient getting Dilaudid 1 mg every 3 hours. -Clear liquids advance as tolerated -Antiemetics as needed Acute pulmonary embolism/history of factor V Leiden mutation -Continue heparin drip -Cardiopulmonary monitoring -Follow vital signs -Venous duplex of bilateral lower extremity showed no evidence of acute DVT History of epilepsy -On Depakote -Seizure precautions History of anxiety with depression -Continue venlafaxine, Klonopin at at bedtime, Bradley Holguin History of CHF -Echo on 02/28/2024 revealed EF of 60% -Continue furosemide, metoprolol No signs of overload at this time Chronic pain syndrome -Managed by Dr.Kutaiba Rasmussen [facility] -Will reach out to Dr. Rasmussen for pain medication recommendations due to pt. continuing to request higher dosing. Patient very displeased with this. History of RLS -On Requip History of DM2 -Sliding scale insulin -Recommend weight loss and compliance with ADA diet DVT prophylaxis patient on heparin drip SCDs Disposition 24 to 48 hours when medically stable YELENA Hidalgo 02/29/24 0935 Discharge Planning Who is requesting discharge planning? Provider Home or Post Acute Services None Patient expects to be discharged to: Home Does the patient need discharge transport arranged? No Care Transitions: Met with pt this morning to discuss discharge plan. Plan remains unchanged at this time. Home no new needs at this time. Pt did request a new provider and I addressed that issue immediately. ADOD is 24hrs. [facility] . CT to follow. Oneida Pathak BSN/RN-TCC 02/28/24 1230 Discharge Planning Living Arrangements Spouse/significant other Support Systems Spouse/significant other;Parent Assistance Needed None Type of Residence Private residence Number of Stairs to Enter Residence 3 Number of Stairs Within Residence 0 Do you have animals or pets at home? Yes Type of Animals or Pets 1 dog Who is requesting discharge planning? Provider Home or Post Acute Services None Patient expects to be discharged to: Home Does the patient need discharge transport arranged? No Financial Resource Strain How hard is it for you to pay for the very basics like food, housing, medical care, and heating? Not hard Housing Stability In the last 12 months, was there a time when you were not able to pay the mortgage or rent on time? N In the last 12 months, how many places have you lived? 1 In the last 12 months, was there a time when you did not have a steady place to sleep or slept in a chcf (including now)? N Transportation Needs In the past 12 months, has lack of transportation kept you from medical appointments or from getting medications? no In the past 12 months, has lack of transportation kept you from meetings, work, or from getting things needed for daily living? No Care Transitions: Patient reviewed in care round meeting this AM and is not medically ready for discharge today. ADOD 24-48 hours. Met with patient at bedside. Pleasant, Alert and Oriented. Role of TCC explained. Demographics and contacts verified. She lives with her significant other on a one story home. PCP is Dr. Rivera at [facility] currently, however, they will no longer be taking her insurance and she is looking for a new PCP. List provided of [place] PCP's available for new patients. Her pharmacy of choice is [facility] in [place] for prescription needs. She is independent at home with ADL's. She can drive but does not drive long distances or very often. Her mode of transportation is her mom and significant other. Denies the need for any diabetic supplies. She States she is in need of a shower chair however her insurance does not cover this DME. Discussed [facility] for free DME when they have it available; resource flyer provided with address and phone number. [facility] . Plan is to return home with significant other when discharged. No further needs or in home services at this time. Care team to follow. Yamilet Garcia RN/TCC documented in this encounter [facility] Work Phone: 03-01-2024 Plan of care note The patient's goals for the shift include pain control The clinical goals for the shift include control pain, BM Problem: Pain - Adult Goal: Verbalizes/displays adequate comfort level or baseline comfort level Outcome: Progressing Flowsheets (Taken 03/01/20242151) Verbalizes/displays adequate comfort level or baseline comfort level: Encourage patient to monitor pain and request assistance Assess pain using appropriate pain scale Administer analgesics based on type and severity of pain and evaluate response Implement non-pharmacological measures as appropriate and evaluate response Notify Licensed Independent Practitioner if interventions unsuccessful or patient reports new pain Problem: Safety - Adult Goal: Free from fall injury Outcome: Progressing Problem: Discharge Planning Goal: Discharge to home or other facility with appropriate resources Outcome: Progressing Flowsheets (Taken 03/01/20242151) Discharge to home or other facility with appropriate resources: Identify barriers to discharge with patient and caregiver Problem: Chronic Conditions and Co-morbidities Goal: Patient's chronic conditions and co-morbidity symptoms are monitored and maintained or improved Outcome: Progressing Flowsheets (Taken 03/01/20242151) Care Plan - Patient's Chronic Conditions and Co-Morbidity Symptoms are Monitored and Maintained or Improved: Monitor and assess patient's chronic conditions and comorbid symptoms for stability, deterioration, or improvement Problem: Fall/Injury Goal: Not fall by end of shift Outcome: Progressing Goal: Be free from injury by end of the shift Outcome: Progressing Goal: Verbalize understanding of personal risk factors for fall in the hospital Outcome: Progressing Goal: Verbalize understanding of risk factor reduction measures to prevent injury from fall in the home Outcome: Progressing Goal: Use assistive devices by end of the shift Outcome: Progressing Goal: Pace activities to prevent fatigue by end of the shift Outcome: Progressing Problem: Diabetes Goal: Achieve decreasing blood glucose levels by end of shift Outcome: Progressing Goal: Increase stability of blood glucose readings by end of shift Outcome: Progressing Goal: Decrease in ketones present in urine by end of shift Outcome: Progressing Goal: Maintain electrolyte levels within acceptable range throughout shift Outcome: Progressing Goal: Maintain glucose levels >70mg/dl to <250mg/dl throughout shift Outcome: Progressing Goal: No changes in neurological exam by end of shift Outcome: Progressing Goal: Learn about and adhere to nutrition recommendations by end of shift Outcome: Progressing Goal: Vital signs within normal range for age by end of shift Outcome: Progressing Goal: Increase self care and/or family involovement by end of shift Outcome: Progressing Goal: Receive DSME education by end of shift Outcome: Progressing Problem: Pain Goal: Takes deep breaths with improved pain control throughout the shift Outcome: Progressing Goal: Turns in bed with improved pain control throughout the shift Outcome: Progressing Goal: Walks with improved pain control throughout the shift Outcome: Progressing Goal: Performs ADL's with improved pain control throughout shift Outcome: Progressing Goal: Participates in PT with improved pain control throughout the shift Outcome: Progressing Goal: Free from opioid side effects throughout the shift Outcome: Progressing Goal: Free from acute confusion related to pain meds throughout the shift Outcome: Progressing Problem: Nutrition Goal: Less than 5 days NPO/clear liquids Outcome: Progressing Goal: Oral intake greater 75% Outcome: Progressing Goal: BG 80-180 mg/dL Outcome: Progressing Goal: Lab values WNL Outcome: Progressing Goal: Electrolytes WNL Outcome: Progressing T [facility] 03-01-2024 Miscellaneous Notes The patient's goals for the shift include pain control The clinical goals for the shift include control pain, BM Problem: Pain - Adult Goal: Verbalizes/displays adequate comfort level or baseline comfort level Outcome: Progressing Flowsheets (Taken 03/01/20242151) Verbalizes/displays adequate comfort level or baseline comfort level: Encourage patient to monitor pain and request assistance Assess pain using appropriate pain scale Administer analgesics based on type and severity of pain and evaluate response Implement non-pharmacological measures as appropriate and evaluate response Notify Licensed Independent Practitioner if interventions unsuccessful or patient reports new pain Problem: Safety - Adult Goal: Free from fall injury Outcome: Progressing Problem: Discharge Planning Goal: Discharge to home or other facility with appropriate resources Outcome: Progressing Flowsheets (Taken 03/01/20242151) Discharge to home or other facility with appropriate resources: Identify barriers to discharge with patient and caregiver Problem: Chronic Conditions and Co-morbidities Goal: Patient's chronic conditions and co-morbidity symptoms are monitored and maintained or improved Outcome: Progressing Flowsheets (Taken 03/01/20242151) Care Plan - Patient's Chronic Conditions and Co-Morbidity Symptoms are Monitored and Maintained or Improved: Monitor and assess patient's chronic conditions and comorbid symptoms for stability, deterioration, or improvement Problem: Fall/Injury Goal: Not fall by end of shift Outcome: Progressing Goal: Be free from injury by end of the shift Outcome: Progressing Goal: Verbalize understanding of personal risk factors for fall in the hospital Outcome: Progressing Goal: Verbalize understanding of risk factor reduction measures to prevent injury from fall in the home Outcome: Progressing Goal: Use assistive devices by end of the shift Outcome: Progressing Goal: Pace activities to prevent fatigue by end of the shift Outcome: Progressing Problem: Diabetes Goal: Achieve decreasing blood glucose levels by end of shift Outcome: Progressing Goal: Increase stability of blood glucose readings by end of shift Outcome: Progressing Goal: Decrease in ketones present in urine by end of shift Outcome: Progressing Goal: Maintain electrolyte levels within acceptable range throughout shift Outcome: Progressing Goal: Maintain glucose levels >70mg/dl to <250mg/dl throughout shift Outcome: Progressing Goal: No changes in neurological exam by end of shift Outcome: Progressing Goal: Learn about and adhere to nutrition recommendations by end of shift Outcome: Progressing Goal: Vital signs within normal range for age by end of shift Outcome: Progressing Goal: Increase self care and/or family involovement by end of shift Outcome: Progressing Goal: Receive DSME education by end of shift Outcome: Progressing Problem: Pain Goal: Takes deep breaths with improved pain control throughout the shift Outcome: Progressing Goal: Turns in bed with improved pain control throughout the shift Outcome: Progressing Goal: Walks with improved pain control throughout the shift Outcome: Progressing Goal: Performs ADL's with improved pain control throughout shift Outcome: Progressing Goal: Participates in PT with improved pain control throughout the shift Outcome: Progressing Goal: Free from opioid side effects throughout the shift Outcome: Progressing Goal: Free from acute confusion related to pain meds throughout the shift Outcome: Progressing Problem: Nutrition Goal: Less than 5 days NPO/clear liquids Outcome: Progressing Goal: Oral intake greater 75% Outcome: Progressing Goal: BG 80-180 mg/dL Outcome: Progressing Goal: Lab values WNL Outcome: Progressing Goal: Electrolytes WNL Outcome: Progressing The patient's goals for the shift include pain control The clinical goals for the shift include Pain management Problem: Pain - Adult Goal: Verbalizes/displays adequate comfort level or baseline comfort level Outcome: Progressing Problem: Safety - Adult Goal: Free from fall injury Outcome: Progressing Problem: Discharge Planning Goal: Discharge to home or other facility with appropriate resources Outcome: Progressing Problem: Chronic Conditions and Co-morbidities Goal: Patient's chronic conditions and co-morbidity symptoms are monitored and maintained or improved Outcome: Progressing Problem: Fall/Injury Goal: Not fall by end of shift Outcome: Progressing Goal: Be free from injury by end of the shift Outcome: Progressing Goal: Verbalize understanding of personal risk factors for fall in the hospital Outcome: Progressing Goal: Verbalize understanding of risk factor reduction measures to prevent injury from fall in the home Outcome: Progressing Goal: Use assistive devices by end of the shift Outcome: Progressing Goal: Pace activities to prevent fatigue by end of the shift Outcome: Progressing Problem: Diabetes Goal: Achieve decreasing blood glucose levels by end of shift Outcome: Progressing Goal: Increase stability of blood glucose readings by end of shift Outcome: Progressing Goal: Decrease in ketones present in urine by end of shift Outcome: Progressing Goal: Maintain electrolyte levels within acceptable range throughout shift Outcome: Progressing Goal: Maintain glucose levels >70mg/dl to <250mg/dl throughout shift Outcome: Progressing Goal: No changes in neurological exam by end of shift Outcome: Progressing Goal: Learn about and adhere to nutrition recommendations by end of shift Outcome: Progressing Goal: Vital signs within normal range for age by end of shift Outcome: Progressing Goal: Increase self care and/or family involovement by end of shift Outcome: Progressing Goal: Receive DSME education by end of shift Outcome: Progressing Problem: Nutrition Goal: Less than 5 days NPO/clear liquids Outcome: Progressing Goal: Oral intake greater 75% Outcome: Progressing Goal: BG 80-180 mg/dL Outcome: Progressing Goal: Lab values WNL Outcome: Progressing Goal: Electrolytes WNL Outcome: Progressing Patient has requested to change her anticoagulation to warfarin. She gives me history that she was on warfarin for 23 years and never had a clot. Warfarin was changed to Xarelto for ease of dosing. She has fluctuating levels. When she was changed to Xarelto she had a liver clot. Xarelto was again changed to Lovenox at [facility]. This admission patient comes back with pulmonary embolus because she missed 1 dose. The patient is requesting to be back on warfarin. I had recommended patient still needs a heme-onc opinion when she goes as outpatient. Discussed with pharmacy about the issue and they were on board. Will start warfarin 5 mg and check daily INR. We have already on heparin for bridging. The patient's goals for the shift include pain control The clinical goals for the shift include pain control Pt c/o pain in mid to lower abd and around R rib area. Pain controlled with PRN medication. The patient's goals for the shift include pain control The clinical goals for the shift include pain control Problem: Pain - Adult Goal: Verbalizes/displays adequate comfort level or baseline comfort level Outcome: Progressing Problem: Safety - Adult Goal: Free from fall injury Outcome: Progressing Problem: Discharge Planning Goal: Discharge to home or other facility with appropriate resources Outcome: Progressing Problem: Chronic Conditions and Co-morbidities Goal: Patient's chronic conditions and co-morbidity symptoms are monitored and maintained or improved Outcome: Progressing Problem: Fall/Injury Goal: Not fall by end of shift Outcome: Progressing . Patient admitted for pulmonary embolism on the right side started on heparin drip. At home she is on Lovenox she did miss 1 dose. She has a history of factor V Leiden. She is asymptomatic with this. Ultrasound is in the room with her currently doing duplex on lower extremities. Dr Purvis hematology on-call was consulted through the ER as well. Patient has idiopathic chronic pancreatitis. Dr. Hicks was consulted through the ER and did not feel surgical intervention was required at this time. Recommendations to treat as if it is typical pancreatitis. Patient is having a lot of pain and currently on Dilaudid. She admits to having a very high tolerance to pain medications. We will change her Dilaudid to every 3 hours instead of 4. She does see pain management in the community. It is currently on a clear liquid diet. We will advance as tolerated. Patient requesting we resume her clonazepam at at bedtime. Long discussion on polypharmacy. The patient's goals for the shift include pain control The clinical goals for the shift include pain control Over the shift, the patient had tolerable pain control with prescribed PRN pain medication documented in this encounter [facility] Work Phone: 03-01-2024 Nurse Note Discharge Note: 03/01/2024 1254 AVS and pt responsibilities reviewed with pt and copy given. Pancreatitis, pulmonary embolism, education reviewed with pt and information sheets given. Pt states that she is not leaving until about 1830 and feels that she is getting discharged too early at this time. Explained to pt that physician has placed discharge order and this nurse is here to review said orders. Pt states cannot leave at this time, explained to pt that she can stay in room until transport arrives, pt states cannot be without pain medication from now until 1830, again explained the discharge order was placed and may wait in room until transport arrives. Pt verbalizes understanding of instructions received, verbalizes understanding of when to seek medical attention, denies any home going or personal care needs other than pain medication and number for new providers. Floor nurse aware of pain medication request and numbers for providers given to pt. Denies further questions or concerns. Reviewed follow up appts with pt and verbalizes understanding. Finn RN [facility] 03-01-2024 Nurse Note Discharge Note: 03/01/2024 1254 AVS and pt responsibilities reviewed with pt and copy given. Pancreatitis, pulmonary embolism, education reviewed with pt and information sheets given. Pt states that she is not leaving until about 1830 and feels that she is getting discharged too early at this time. Explained to pt that physician has placed discharge order and this nurse is here to review said orders. Pt states cannot leave at this time, explained to pt that she can stay in room until transport arrives, pt states cannot be without pain medication from now until 1830, again explained the discharge order was placed and may wait in room until transport arrives. Pt verbalizes understanding of instructions received, verbalizes understanding of when to seek medical attention, denies any home going or personal care needs other than pain medication and number for new providers. Floor nurse aware of pain medication request and numbers for providers given to pt. Denies further questions or concerns. Reviewed follow up appts with pt and verbalizes understanding. Finn RN documented in this encounter [facility] Work Phone: 03-01-2024 Hospital course Narrative Discharge Diagnosis Acute pancreatitis without necrosis or infection, unspecified ([facility]) Issues Requiring For follow up Coumadin clinic Hematology Discharge Meds Your medication list START taking these medications Instructions Last Dose Given Next Dose Due warfarin 5 mg tablet Commonly known as: Coumadin Take 1 tablet (5 mg) by mouth once daily at bedtime. Take as directed per After Visit Summary. CHANGE how you take these medications Instructions Last Dose Given Next Dose Due oxyCODONE-acetaminophen 5-325 mg tablet Commonly known as: Percocet What changed: Another medication with the same name was removed. Continue taking this medication, and follow the directions you see here. Take 1 tablet by mouth every 6 hours for moderate pain for up to 3 days CONTINUE taking these medications Instructions Last Dose Given Next Dose Due ARIPiprazole 10 mg tablet Commonly known as: Abilify ascorbic acid 1,000 mg tablet Commonly known as: Vitamin C benztropine 0.5 mg tablet Commonly known as: Cogentin cholecalciferol 50,000 unit capsule Commonly known as: Vitamin D-3 cloNIDine 0.2 mg tablet Commonly known as: Catapres Creon 12,000-38,000 -60,000 unit capsule Generic drug: pancrelipase (Aox-Rjcw-Fimw) Take 2 capsules by mouth 3 times a day with meals. divalproex 250 mg EC tablet Commonly known as: Depakote docosanol cream 10 % cream cream Commonly known as: Abreva Apply 1 Application topically 5 times a day. doxepin 10 mg capsule Commonly known as: SINEquan fenofibrate 145 mg tablet Commonly known as: Tricor furosemide 80 mg tablet Commonly known as: Lasix glipiZIDE XL 10 mg 24 hr tablet Commonly known as: Glucotrol XL hydrOXYzine HCL 25 mg tablet Commonly known as: Atarax insulin glargine 300 unit/mL (3 mL) injection Commonly known as: Toujeo Max Solostar- 2 unit dial ketamine (bulk) 100 % powder Ketamine 100 mg/mL + lidocaine 40 mg/mL 1 puff 4 times daily as needed, DSP#20 mL x 5 refills Lidocaine/Maalox/Diphenhydramine (1:1:1) Swish and spit 10 mL 3 times a day as needed for mucositis. diphenhydramine/Maalox/lidocaine (Magic Mouthwash) - Compounded - Outpatient Swish and spit 10 mL 3 times a day as needed (For mouth pain). Linzess 290 mcg capsule Generic drug: linaCLOtide Take 1 capsule (290 mcg) by mouth once daily in the morning. Take before meals. Do not crush or chew. melatonin 5 mg tablet metoprolol succinate XL 25 mg 24 hr tablet Commonly known as: Toprol-XL Take 1 tablet (25 mg) by mouth once daily. Do not crush or chew. NovoLOG Mix 70-30 U-100 Insuln 100 unit/mL (70-30) injection Generic drug: insulin asp prt-insulin aspart nystatin 100,000 unit/mL suspension Commonly known as: Mycostatin omeprazole [address] capsule Commonly known as: PriLOSEC ondansetron ODT 8 mg disintegrating tablet Commonly known as: Zofran-ODT DISSOLVE 1 TABLET IN MOUTH THREE TIMES A DAY NEEDED FOR NAUSEA Pain Relief (acetaminophen) 325 mg tablet Generic drug: acetaminophen TAKE 2 TABLETS BY MOUTH EVERY 8 HOURS potassium chloride ER 10 mEq ER capsule Commonly known as: Micro-K promethazine 25 mg tablet Commonly known as: Phenergan Take 1 tablet (25 mg) by mouth every 6 hours if needed for nausea or vomiting. rOPINIRole 0.5 mg tablet Commonly known as: Requip valACYclovir 500 mg tablet Commonly known as: Valtrex Take 1 tablet (500 mg) by mouth once daily. venlafaxine XR 75 mg 24 hr capsule Commonly known as: Effexor-XR venlafaxine XR 150 mg 24 hr capsule Commonly known as: Effexor-XR STOP taking these medications ibuprofen 400 mg tablet Where to Get Your Medications These medications were sent to [facility] [address] [place] [id number] Hours: 8 AM to 5:30 Mon-Fri, 8 AM to 4 PM Tuesday and Tuesday warfarin 5 mg tablet Test Results Pending At Discharge Pending Labs Order Current Status Extra Urine Vaca Tube Collected (02/27/241934) Urinalysis with Reflex Culture and Microscopic In process Hospital Course 48-year-old female with chronic pancreatitis as well alcohol abuse and 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 In recent months underwent complex drainage procedure pancreatic pseudocyst . Successfully drained. Had acute pancreatitis following ERCP for retained common duct stone after urgent cholecystectomy in mid January. Transferred to [facility] for treatment of pancreatitis per the patient as we spoke. Ended up here after discharge from [facility] with recurrent pancreatitis. Transaminases again have normalized. Pain is consistent with acute pulmonary emboli. Here, CT showing evolving acute pancreatitis with abnormal LFTs and possibility of peripancreatic fluid and fluid collection at the head of pancreas as well mesenteric root. Incidentally she was found to have episode of acute pulmonary embolism in the right lower lobe. She has been on narcotic medicines , for constipation was given Relistor injection here. Gastroenterology saw the patient recommended conservative medical management. Patient has received narcotic IV and improved symptoms. She has been seeking narcotics from different facilities lately with added component of pain seeking behavior in addition to underlying medical problems as well. Patient follows with pain management and advised her to see them once again upon discharge for ongoing adjustment in pain medicines. She is to resume her home medication regimen at this time. Symptoms improved and she is tolerating diet well. No current evidence of evolving pseudocyst per gastroenterology and fluid around mesenteric root and fluid collection at the head of pancreas likely from recent cholecystectomy. Pain is pleuritic with acute PE worsens with deep breathing. Overall she is improving clinically and at this time stable for discharge home. No nausea vomiting or bleeding or diarrhea or constipation at this time. Encourage ambulation and incentive spirometry. 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 Patient requested Coumadin for PE although she only missed 1 dose of Lovenox so would not call it treatment failure. Previously she has been on Xarelto I think but requesting Coumadin upon discharge. Have advised her to follow hematology for recommendation regarding anticoagulation moving forward. Pharmacy/Coumadin clinic following for Coumadin dosing to achieve optimal therapeutic INR. At this time, will defer further management outpatient with hematology and pain management Echo showing EF 60%, no evidence of DVT on venous duplex ultrasound bilateral lower extremity Initially was on heparin drip Continue Depakote for epilepsy Also on psych medicines for anxiety depression including venlafaxine, Cogentin and Abilify Continued insulin for diabetes control She has factor V Leiden deficiency Also encouraged weight loss and carb controlled diet for diabetes Addendum Today, patient reiterated that she had ERCP done at [facility] subsequently led to pancreatitis and transferred to [facility] for that. Then she is here again with recurrent pancreatitis after that episode. Pertinent Physical Exam At Time of Discharge Physical Exam General Appearance: AAO x 3, not in acute distress Skin: skin color pink, warm, and dry; no suspicious rashes or lesions Eyes : PERRL, EOM's intact ENT: mucous membranes pink and moist Neck: normocephalic Respiratory: lungs clear to auscultation anteriorly; no wheezing, rhonchi, or crackles. Heart: regular rate and rhythm. Abdomen: Nondistended, positive bowel sounds x4, soft, mildly tender Extremities: no edema Peripheral pulses: normal x4 extremities Neuro: alert, coherent and conversant, no focal motor deficits Relevant Results Outpatient Follow-Up Future Appointments Date Time Provider Department Center 03/09/2024 2:20 PM Kirby Guillen MD [id number] [facility] 03/14/2024 8:00 AM INF 03 PARM [facility] 03/28/2024 7:30 AM INF 02 [facility] 04/09/2024 11:00 AM Colton Hicks MD [id number] [facility] 04/11/2024 10:00 AM INF 03 [facility] 04/25/2024 8:30 AM INF 02 [facility]M [facility] Time to dc > 35 mins Brea Nolen MD documented in this encounter [facility] Work Phone: 03-01-2024 Plan of care note The patient's goals for the shift include pain control The clinical goals for the shift include Pain management Problem: Pain - Adult Goal: Verbalizes/displays adequate comfort level or baseline comfort level Outcome: Progressing Problem: Safety - Adult Goal: Free from fall injury Outcome: Progressing Problem: Discharge Planning Goal: Discharge to home or other facility with appropriate resources Outcome: Progressing Problem: Chronic Conditions and Co-morbidities Goal: Patient's chronic conditions and co-morbidity symptoms are monitored and maintained or improved Outcome: Progressing Problem: Fall/Injury Goal: Not fall by end of shift Outcome: Progressing Goal: Be free from injury by end of the shift Outcome: Progressing Goal: Verbalize understanding of personal risk factors for fall in the hospital Outcome: Progressing Goal: Verbalize understanding of risk factor reduction measures to prevent injury from fall in the home Outcome: Progressing Goal: Use assistive devices by end of the shift Outcome: Progressing Goal: Pace activities to prevent fatigue by end of the shift Outcome: Progressing Problem: Diabetes Goal: Achieve decreasing blood glucose levels by end of shift Outcome: Progressing Goal: Increase stability of blood glucose readings by end of shift Outcome: Progressing Goal: Decrease in ketones present in urine by end of shift Outcome: Progressing Goal: Maintain electrolyte levels within acceptable range throughout shift Outcome: Progressing Goal: Maintain glucose levels >70mg/dl to <250mg/dl throughout shift Outcome: Progressing Goal: No changes in neurological exam by end of shift Outcome: Progressing Goal: Learn about and adhere to nutrition recommendations by end of shift Outcome: Progressing Goal: Vital signs within normal range for age by end of shift Outcome: Progressing Goal: Increase self care and/or family involovement by end of shift Outcome: Progressing Goal: Receive DSME education by end of shift Outcome: Progressing Problem: Nutrition Goal: Less than 5 days NPO/clear liquids Outcome: Progressing Goal: Oral intake greater 75% Outcome: Progressing Goal: BG 80-180 mg/dL Outcome: Progressing Goal: Lab values WNL Outcome: Progressing Goal: Electrolytes WNL Outcome: Progressing [facility] 02-29-2024 Consult note Associated Order (s): PHARMACY TO DOSE WARFARIN Pharmacy to dose warfarin Today's INR / PT - none; yesterday's - 1.2 INR Goal - 2-3 TTR last 90 days - N/A Related labs - N/A Daily PT / INR check - Yes Last INR prior to admission - N/A Primary / Secondary Diagnosis - Pulmonary embolism without acute cor pulmonale / Factor 5 Leiden mutation, heterozygous (Multi) (Chronic) D68.51 [facility] Coag Clinic patient - No Ordering Provider - Ana Wolfe Plan - In speaking with the hospitalist provider, patient has long (20+ year) history of clotting disorder and was previously anticoagulated on warfarin (20+ years as well). Was a self rachel at home and managed in outpatient setting - not sure who? Was then switched to Xarelto - patient stated the change was made due to difficulty in keeping her warfarin within the therapeutic dosing window (INR 2-3). Subsequently, while on the newer DOAC, Xarelto, she developed a hepatic clot and the Xarelto was discontinued. I was not able to confirm the patient's compliance with the Xarelto so I do not know if it was truly due to treatment failure on a lack of compliance. Nevertheless, patient therapy was then changed to enoxaparin but apparently still developed clots. Patient stated during this hospital admission she is willing to return to using warfarin. I asked the consulting provider if the patient knew her previous warfarin dosing. Provider stated that patient said somewhere in the range of 5 mg and 7.5 mg daily. I will start the patient on 5 mg daily and order PT INR checks then provide further dosing. She will obviously need to re-establish with a coag clinic or PCP to help manage the warfarin post discharge. If she has any interest in our coag clinic a referral would need to be placed to our clinic prior to discharge. However, the patient does live quite a distance away ([facility]) so she may need to go back to her PCP or a coag clinic near her home for management. [facility] Work Phone: 02-29-2024 Consult note Associated Order (s): PHARMACY TO DOSE WARFARIN Pharmacy to dose warfarin Today's INR / PT - none; yesterday's - 1.2 INR Goal - 2-3 TTR last 90 days - N/A Related labs - N/A Daily PT / INR check - Yes Last INR prior to admission - N/A Primary / Secondary Diagnosis - Pulmonary embolism without acute cor pulmonale / Factor 5 Leiden mutation, heterozygous (Multi) (Chronic) D68.51 [facility] Coag Clinic patient - No Ordering Provider - Ana Wolfe Plan - In speaking with the hospitalist provider, patient has long (20+ year) history of clotting disorder and was previously anticoagulated on warfarin (20+ years as well). Was a self rachel at home and managed in outpatient setting - not sure who? Was then switched to Xarelto - patient stated the change was made due to difficulty in keeping her warfarin within the therapeutic dosing window (INR 2-3). Subsequently, while on the newer DOAC, Xarelto, she developed a hepatic clot and the Xarelto was discontinued. I was not able to confirm the patient's compliance with the Xarelto so I do not know if it was truly due to treatment failure on a lack of compliance. Nevertheless, patient therapy was then changed to enoxaparin but apparently still developed clots. Patient stated during this hospital admission she is willing to return to using warfarin. I asked the consulting provider if the patient knew her previous warfarin dosing. Provider stated that patient said somewhere in the range of 5 mg and 7.5 mg daily. I will start the patient on 5 mg daily and order PT INR checks then provide further dosing. She will obviously need to re-establish with a coag clinic or PCP to help manage the warfarin post discharge. If she has any interest in our coag clinic a referral would need to be placed to our clinic prior to discharge. However, the patient does live quite a distance away ([facility]) so she may need to go back to her PCP or a coag clinic near her home for management. Consults Reason For Consult Possible pancreatitis History Of Present Illness Dorothea Rutledge is a 48 y.o. 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 Underwent drainage of pancreatic pseudocyst endoscopically January [address] Mason Agrawal at [facility]. Had uneventful drainage procedure and then developed acute complicated cholecystitis surgery was performed at [facility]. Underwent ERCP after surgery for retained bile duct stone. Stent was placed and 1 stone was unable to be retrieved. Because of worsening symptoms of pancreatitis was ultimately transferred to [facility] for further evaluation. Patient resolved with medical management only. Within a week of discharge from [facility] she was presented to our ER with acute abdominal pain. CT showed evolving acute pancreatitis she was admitted for observation and treatment. Initial transaminases were elevated to 5 followed elevation and alkaline phosphatase was threefold elevated. Transaminases and alkaline phosphatase continue to climb during that hospitalization. There is evidence of jane-pancreatic fluid and fluid collection of the head of the pancreas as well as the mesenteric root. She is seen at bedside. Patient was found to have acute pulmonary embolus of the right lower lobe. Pain is most consistent with acute pulmonary emboli his pain was worse with deep breathing and movement. Interesting she has been having nausea which is worsened since hospitalization CT scan showed severe constipation she is self states she has not had an effective bowel movement since she left the hospital in mid January. She states the try to give her an enema before she left it just made her more nauseous and she has had very infrequent bowel movements at home last bowel movement was 48 hours ago and small little palpable's were produced she became extremely nauseous and sweaty afterwards. She denies any melanic stools or hematemesis. Past Medical History She has a past medical history of Awareness under anesthesia, Depression, Diabetes mellitus (Multi), DVT (deep venous thrombosis) (Multi), Factor V Leiden (Multi), Pancreatitis (HHS-HCC), PE (pulmonary thromboembolism) (Multi), Seizure (Multi), and Stroke (Multi). Surgical History She has a past surgical history that includes MR angio neck wo IV contrast (10/16/2017); MR angio head wo IV contrast (10/16/2017); US guided percutaneous placement (06/08/2019); Hysterectomy; IR CVC port placement (08/26/2023); Cholecystectomy; Appendectomy; section, low transverse; and ERCP w/ plastic stent placement. Social History She reports that she has never smoked. She uses smokeless tobacco. She reports that she does not currently use alcohol. She reports current drug use. Drug: Marijuana. Family History Family History Problem Relation Name Age of Onset Coronary artery disease Mother Allergies Gabapentin, Sulfa (sulfonamide antibiotics), Topiramate, and Penicillins Review of Systems Constitutional: Negative. HENT: Negative. Eyes: Negative. Respiratory: Negative. Cardiovascular: Negative. Gastrointestinal: Positive for abdominal pain, constipation and nausea. Endocrine: Negative. Genitourinary: Negative. Neurological: Negative. Hematological: Negative. Physical Exam Vitals and nursing note reviewed. Constitutional: Appearance: Normal appearance. HENT: Head: Normocephalic. Mouth/Throat: Mouth: Mucous membranes are moist. Pharynx: Oropharynx is clear. Eyes: Conjunctiva/sclera: Conjunctivae normal. Pupils: Pupils are equal, round, and reactive to light. Cardiovascular: Rate and Rhythm: Normal rate and regular rhythm. Pulses: Normal pulses. Heart sounds: Normal heart sounds. Pulmonary: Effort: Pulmonary effort is normal. Breath sounds: Normal breath sounds. Abdominal: General: Abdomen is flat. Bowel sounds are normal. Palpations: Abdomen is soft. Comments: Tender right upper quadrant along rib cage and epigastrium. No rebound or guarding Musculoskeletal: General: Normal range of motion. Cervical back: Normal range of motion and neck supple. Skin: General: Skin is warm and dry. Neurological: General: No focal deficit present. Mental Status: She is alert and oriented to person, place, and time. Psychiatric: Behavior: Behavior normal. Last Recorded Vitals Blood pressure 114/84, pulse 77, temperature 35.8 C (96.4 F), temperature source Temporal, resp. rate 18, height 1.626 m (5' 4 ), weight 106 kg (234 lb 2.1 oz), SpO2 96%. Relevant Results Results for orders placed or performed during the hospital encounter of 02/27/24 (from the past 24 hour(s)) POCT GLUCOSE Result Value Ref Range POCT Glucose 129 (H) 74 - 99 mg/dL POCT GLUCOSE Result Value Ref Range POCT Glucose 160 (H) 74 - 99 mg/dL Lipase Result Value Ref Range Lipase 33 9 - 82 U/L Amylase Result Value Ref Range Amylase 25 (L) 29 - 103 U/L CBC Result Value Ref Range WBC 5.7 4.4 - 11.3 x10*3/uL nRBC 0.0 0.0 - 0.0 /100 WBCs RBC 3.82 (L) 4.00 - 5.20 x10*6/uL Hemoglobin 10.5 (L) 12.0 - 16.0 g/dL Hematocrit 34.4 (L) 36.0 - 46.0 % MCV 90 80 - 100 fL MCH 27.5 26.0 - 34.0 pg MCHC 30.5 (L) 32.0 - 36.0 g/dL RDW 14.3 11.5 - 14.5 % Platelets 322 150 - 450 x10*3/uL Basic Metabolic Panel Result Value Ref Range Glucose 144 (H) 74 - 99 mg/dL Sodium 135 (L) 136 - 145 mmol/L Potassium 3.9 3.5 - 5.3 mmol/L Chloride 102 98 - 107 mmol/L Bicarbonate 24 21 - 32 mmol/L Anion Gap 13 10 - 20 mmol/L Urea Nitrogen 9 6 - 23 mg/dL Creatinine 0.64 0.50 - 1.05 mg/dL eGFR >90 >60 mL/min/1.73m*2 Calcium 8.3 (L) 8.6 - 10.3 mg/dL Heparin Assay, UFH Result Value Ref Range Heparin Unfractionated 0.1 See Comment Below for Therapeutic Ranges IU/mL POCT GLUCOSE Result Value Ref Range POCT Glucose 152 (H) 74 - 99 mg/dL Heparin Assay Result Value Ref Range Heparin Unfractionated 0.1 See Comment Below for Therapeutic Ranges IU/mL POCT GLUCOSE Result Value Ref Range POCT Glucose 155 (H) 74 - 99 mg/dL Assessment/Plan I am concerned after reviewing patient's OARRS report with pharmacy. Patient filling multiple controlled drugs from multiple pharmacies throughout the state including well but can add a, [place], [place], [place] and [place]. 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 She is a reformed alcoholic and her chronic pancreatitis is secondary to alcohol abuse and possible AIP. I discussed her symptoms with her. I believe her pancreatitis is nonexistent the fluid around her pancreas is healing and will continue to remain present there is no new evidence of any evolving pseudocyst. The fluid around the mesenteric root is improving and the new fluid collection at the head of her pancreas is likely from her recent cholecystectomy. Pain is most consistent with acute pulmonary emboli as it is sharp stabbing worse with deep breathing. Nausea is likely related to function of her constipation. Given her chronic narcotic abuse will begin Relistor 12 mg injection today continue to advance diet as tolerated. Need to address patient's narcotic habits with her prior to discharge. I spent 60 minutes in the professional and overall care of this patient. Associated Order(s): IP CONSULT TO NUTRITION SERVICES Nutrition Initial Assessment: Nutrition Assessment Reason for Assessment: Admission nursing screening Patient is a 48 y.o. female presenting with abdominal pain, nausea vomiting for 2 to 3 days along with constipation no diarrhea or bleeding from anywhere found to have acute pancreatitis with possible pseudocyst/walled off necrosis in context of chronic pancreatitis. Patient has recent history of choledocholithiasis, ERCP and drained pancreatic cyst. 02/29/24 patient seen - stated poor intake x 3 days due to nausea/vomiting/pain/constipation. No questions regarding DM diet education provided 2 weeks ago. Will monitor for diet advancement. Does use Creon with meals due to chronic pancreatitis Nutrition History: Energy Intake: Poor < 50 % Food and Nutrient History: poor intake at home due to Nausea/vomiting, pain, constipation Vitamin/Herbal Supplement Use: Vit D Food Allergies/Intolerances: None GI Symptoms: Constipation, Nausea, and Vomiting Oral Problems: None Anthropometrics: Height: 162.6 cm (5' 4 ) Weight: 106 kg (234 lb 2.1 oz) BMI (Calculated): 40.17 IBW/kg (Dietitian Calculated): 54.5 kg Percent of IBW: 194 % Adjusted Body Weight (kg): 67.4 kg Weight History: Daily Weight 02/28/24 : 106 kg (234 lb 2.1 oz) 02/17/24 : 46.9 kg (103 lb 8 oz) 02/04/24 : 106 kg (233 lb 11 oz) 02/04/24 : 106 kg (234 lb 2.1 oz) 12/05/23 : 104 kg (230 lb) 12/05/23 : 104 kg (230 lb) 11/15/23 : 106 kg (233 lb 11 oz) 10/27/23 : 104 kg (230 lb) 10/12/23 : 104 kg (229 lb) 08/03/23 : 99.9 kg (220 lb 3.2 oz) Weight Change %: Weight History / % Weight Change: gain 49# in 1 year due to stress eating. - stated 20# loss in 2 weeks but weight is the same as last admission Significant Weight Loss: No Significant Weight Gain: Non-fluid related Nutrition Focused Physical Exam Findings: defer: not indicated Nutrition Significant Labs: CBC Trend: Results from last 7 days Lab Units 02/29/24 0502/28/24 03102/27/24 1832 WBC AUTO x10*3/uL 5.7 9.7 12.5* RBC AUTO x10*6/uL 3.82* 4.02 4.16 HEMOGLOBIN g/dL 10.5* 11.2* 11.4* HEMATOCRIT % 34.4* 35.7* 36.8 MCV fL 90 89 89 PLATELETS AUTO x10*3/uL 322 344 327 , Renal Lab Trend: Results from last 7 days Lab Units 02/29/24 0502/28/2431702/27/24 1832 POTASSIUM mmol/L 3.9 4.0 4.1 SODIUM mmol/L 135* 134* 134* EGFR mL/min/1.73m*2 >90 >90 74 BUN mg/dL 9 12 15 CREATININE mg/dL 0.64 0.67 0.95 , Lipid Panel: Lab Results Component Value Date CHOL 131 02/04/2024 HDL 22.0 02/04/2024 CHHDL 6.0 02/04/2024 LDLF 123 (H) 04/03/2023 VLDL 38 04/03/2023 TRIG 188 (H) 04/03/2023 Nutrition Specific Medications: Scheduled medications ascorbic acid, 1,000 mg, oral, Nightly furosemide, 40 mg, oral, Daily insulin lispro, 0-5 Units, subcutaneous, TID [Held by provider] pancrelipase ([id number]-[id number]), 2 capsule, oral, TID pantoprazole, 40 mg, intravenous, Daily polyethylene glycol, 17 g, oral, Daily potassium chloride CR, 20 mEq, oral, Daily promethazine, , , I/O: Last BM Date: 02/28/24; Dietary Orders (From admission, onward) Start Ordered 02/28/24 040 Adult diet Clear Liquid Diet effective now Question: Diet type Answer: Clear Liquid 02/28/24 0405 Estimated Needs: Total Energy Estimated Needs (kCal): 2000 kCal Method for Estimating Needs: [facility] = kcal Total Protein Estimated Needs (g): 100 g Method for Estimating Needs: 1.5 gm/kg IBW = 100 gm Total Fluid Estimated Needs (mL): 2000 mL Method for Estimating Needs: 1 ml/kcal Nutrition Diagnosis Malnutrition Diagnosis Patient has Malnutrition Diagnosis: No Nutrition Diagnosis Patient has Nutrition Diagnosis: Yes Diagnosis Status (1): New Nutrition Diagnosis 1: Altered nutrition related to laboratory values Related to (1): diabetes As Evidenced by (1): elevated blood glucose Additional Nutrition Diagnosis: Diagnosis 3 Diagnosis Status (2): New Nutrition Diagnosis 2: Altered GI function Related to (2): chronic pancreatitis, medications As Evidenced by (2): abdominal pain, constipation Diagnosis Status (3): New Nutrition Diagnosis 3: Obese Related to (3): history of excess calorie intake As Evidenced by (3): BMI 40.19 kg/m2 Nutrition Interventions/Recommendations Nutrition Prescription: Individualized Nutrition Prescription Provided for : Oral nutrition Nutrition Interventions: Interventions: Meals and snacks Meals and Snacks: Carbohydrate-modified diet Goal: Currently clear liquid diet monitor for ability to advance to [facility] Collaboration and Referral of Nutrition Care: Team meeting involving nutrition professional Goal: IDT meeting Nutrition Education: previously instructed on DM diet Nutrition Monitoring and Evaluation Food/Nutrient Related History Monitoring Monitoring and Evaluation Plan: Energy intake Energy Intake: Estimated energy intake Criteria: Monitor clear liquids status to provide adequate nutrition Body Composition/Growth/Weight History Monitoring and Evaluation Plan: BMI Body Mass: Body mass index (BMI) Criteria: Would benefit from slow weight loss to healthy BMI Biochemical Data, Medical Tests and Procedures Monitoring and Evaluation Plan: Glucose/endocrine profile Glucose/Endocrine Profile: Glucose, casual Criteria: 100-140 mg/dl Constipation - monitor for BM Time Spent/Follow-up Reminder: Time Spent (min): 30 minutes Last Date of Nutrition Visit: 02/29/24 Nutrition Follow-Up Needed?: 5-7 days Follow up Comment: diet advance, po, labs Alaina Paez RDN, LD documented in this encounter [facility] Work Phone: 02-29-2024 Consult note Formatting of th is note is different from the original. Consults Reason For Consult Possible pancreatitis History Of Present Illness Dorothea Rutledge is a 48 y.o. 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 Underwent drainage of pancreatic pseudocyst endoscopically January [address] Mason Agrawal at [facility]. Had uneventful drainage procedure and then developed acute complicated cholecystitis surgery was performed at [facility]. Underwent ERCP after surgery for retained bile duct stone. Stent was placed and 1 stone was unable to be retrieved. Because of worsening symptoms of pancreatitis was ultimately transferred to [facility] for further evaluation. Patient resolved with medical management only. Within a week of discharge from [facility] she was presented to our ER with acute abdominal pain. CT showed evolving acute pancreatitis she was admitted for observation and treatment. Initial transaminases were elevated to 5 followed elevation and alkaline phosphatase was threefold elevated. Transaminases and alkaline phosphatase continue to climb during that hospitalization. There is evidence of jane-pancreatic fluid and fluid collection of the head of the pancreas as well as the mesenteric root. She is seen at bedside. Patient was found to have acute pulmonary embolus of the right lower lobe. Pain is most consistent with acute pulmonary emboli his pain was worse with deep breathing and movement. Interesting she has been having nausea which is worsened since hospitalization CT scan showed severe constipation she is self states she has not had an effective bowel movement since she left the hospital in mid January. She states the try to give her an enema before she left it just made her more nauseous and she has had very infrequent bowel movements at home last bowel movement was 48 hours ago and small little palpable's were produced she became extremely nauseous and sweaty afterwards. She denies any melanic stools or hematemesis. Past Medical History She has a past medical history of Awareness under anesthesia, Depression, Diabetes mellitus (Multi), DVT (deep venous thrombosis) (Multi), Factor V Leiden (Multi), Pancreatitis (HHS-HCC), PE (pulmonary thromboembolism) (Multi), Seizure (Multi), and Stroke (Multi). Surgical History She has a past surgical history that includes MR angio neck wo IV contrast (10/16/2017); MR angio head wo IV contrast (10/16/2017); US guided percutaneous placement (06/08/2019); Hysterectomy; IR CVC port placement (08/26/2023); Cholecystectomy; Appendectomy; section, low transverse; and ERCP w/ plastic stent placement. Social History She reports that she has never smoked. She uses smokeless tobacco. She reports that she does not currently use alcohol. She reports current drug use. Drug: Marijuana. Family History Family History Problem Relation Name Age of Onset Coronary artery disease Mother Allergies Gabapentin, Sulfa (sulfonamide antibiotics), Topiramate, and Penicillins Review of Systems Constitutional: Negative. HENT: Negative. Eyes: Negative. Respiratory: Negative. Cardiovascular: Negative. Gastrointestinal: Positive for abdominal pain, constipation and nausea. Endocrine: Negative. Genitourinary: Negative. Neurological: Negative. Hematological: Negative. Physical Exam Vitals and nursing note reviewed. Constitutional: Appearance: Normal appearance. HENT: Head: Normocephalic. Mouth/Throat: Mouth: Mucous membranes are moist. Pharynx: Oropharynx is clear. Eyes: Conjunctiva/sclera: Conjunctivae normal. Pupils: Pupils are equal, round, and reactive to light. Cardiovascular: Rate and Rhythm: Normal rate and regular rhythm. Pulses: Normal pulses. Heart sounds: Normal heart sounds. Pulmonary: Effort: Pulmonary effort is normal. Breath sounds: Normal breath sounds. Abdominal: General: Abdomen is flat. Bowel sounds are normal. Palpations: Abdomen is soft. Comments: Tender right upper quadrant along rib cage and epigastrium. No rebound or guarding Musculoskeletal: General: Normal range of motion. Cervical back: Normal range of motion and neck supple. Skin: General: Skin is warm and dry. Neurological: General: No focal deficit present. Mental Status: She is alert and oriented to person, place, and time. Psychiatric: Behavior: Behavior normal. Last Recorded Vitals Blood pressure 114/84, pulse 77, temperature 35.8 C (96.4 F), temperature source Temporal, resp. rate 18, height 1.626 m (5' 4 ), weight 106 kg (234 lb 2.1 oz), SpO2 96%. Relevant Results Results for orders placed or performed during the hospital encounter of 02/27/24 (from the past 24 hour(s)) POCT GLUCOSE Result Value Ref Range POCT Glucose 129 (H) 74 - 99 mg/dL POCT GLUCOSE Result Value Ref Range POCT Glucose 160 (H) 74 - 99 mg/dL Lipase Result Value Ref Range Lipase 33 9 - 82 U/L Amylase Result Value Ref Range Amylase 25 (L) 29 - 103 U/L CBC Result Value Ref Range WBC 5.7 4.4 - 11.3 x10*3/uL nRBC 0.0 0.0 - 0.0 /100 WBCs RBC 3.82 (L) 4.00 - 5.20 x10*6/uL Hemoglobin 10.5 (L) 12.0 - 16.0 g/dL Hematocrit 34.4 (L) 36.0 - 46.0 % MCV 90 80 - 100 fL MCH 27.5 26.0 - 34.0 pg MCHC 30.5 (L) 32.0 - 36.0 g/dL RDW 14.3 11.5 - 14.5 % Platelets 322 150 - 450 x10*3/uL Basic Metabolic Panel Result Value Ref Range Glucose 144 (H) 74 - 99 mg/dL Sodium 135 (L) 136 - 145 mmol/L Potassium 3.9 3.5 - 5.3 mmol/L Chloride 102 98 - 107 mmol/L Bicarbonate 24 21 - 32 mmol/L Anion Gap 13 10 - 20 mmol/L Urea Nitrogen 9 6 - 23 mg/dL Creatinine 0.64 0.50 - 1.05 mg/dL eGFR >90 >60 mL/min/1.73m*2 Calcium 8.3 (L) 8.6 - 10.3 mg/dL Heparin Assay, UFH Result Value Ref Range Heparin Unfractionated 0.1 See Comment Below for Therapeutic Ranges IU/mL POCT GLUCOSE Result Value Ref Range POCT Glucose 152 (H) 74 - 99 mg/dL Heparin Assay Result Value Ref Range Heparin Unfractionated 0.1 See Comment Below for Therapeutic Ranges IU/mL POCT GLUCOSE Result Value Ref Range POCT Glucose 155 (H) 74 - 99 mg/dL Assessment/Plan I am concerned after reviewing patient's OARRS report with pharmacy. Patient filling multiple controlled drugs from multiple pharmacies throughout the state including well but can add a, [place], [place], [place] and [place]. 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 She is a reformed alcoholic and her chronic pancreatitis is secondary to alcohol abuse and possible AIP. I discussed her symptoms with her. I believe her pancreatitis is nonexistent the fluid around her pancreas is healing and will continue to remain present there is no new evidence of any evolving pseudocyst. The fluid around the mesenteric root is improving and the new fluid collection at the head of her pancreas is likely from her recent cholecystectomy. Pain is most consistent with acute pulmonary emboli as it is sharp stabbing worse with deep breathing. Nausea is likely related to function of her constipation. Given her chronic narcotic abuse will begin Relistor 12 mg injection today continue to advance diet as tolerated. Need to address patient's narcotic habits with her prior to discharge. I spent 60 minutes in the professional and overall care of this patient. [facility] Work Phone: 02-29-2024 Note Formatting of this n ote might be different from the original. Patient has requested to change her anticoagulation to warfarin. She gives me history that she was on warfarin for 23 years and never had a clot. Warfarin was changed to Xarelto for ease of dosing. She has fluctuating levels. When she was changed to Xarelto she had a liver clot. Xarelto was again changed to Lovenox at [facility]. This admission patient comes back with pulmonary embolus because she missed 1 dose. The patient is requesting to be back on warfarin. I had recommended patient still needs a heme-onc opinion when she goes as outpatient. Discussed with pharmacy about the issue and they were on board. Will start warfarin 5 mg and check daily INR. We have already on heparin for bridging. [facility] Work Phone: 02-29-2024 Consult note Associated Order (s): IP CONSULT TO NUTRITION SERVICES Nutrition Initial Assessment: Nutrition Assessment Reason for Assessment: Admission nursing screening Patient is a 48 y.o. female presenting with abdominal pain, nausea vomiting for 2 to 3 days along with constipation no diarrhea or bleeding from anywhere found to have acute pancreatitis with possible pseudocyst/walled off necrosis in context of chronic pancreatitis. Patient has recent history of choledocholithiasis, ERCP and drained pancreatic cyst. 02/29/24 patient seen - stated poor intake x 3 days due to nausea/vomiting/pain/constipation. No questions regarding DM diet education provided 2 weeks ago. Will monitor for diet advancement. Does use Creon with meals due to chronic pancreatitis Nutrition History: Energy Intake: Poor < 50 % Food and Nutrient History: poor intake at home due to Nausea/vomiting, pain, constipation Vitamin/Herbal Supplement Use: Vit D Food Allergies/Intolerances: None GI Symptoms: Constipation, Nausea, and Vomiting Oral Problems: None Anthropometrics: Height: 162.6 cm (5' 4 ) Weight: 106 kg (234 lb 2.1 oz) BMI (Calculated): 40.17 IBW/kg (Dietitian Calculated): 54.5 kg Percent of IBW: 194 % Adjusted Body Weight (kg): 67.4 kg Weight History: Daily Weight 02/28/24 : 106 kg (234 lb 2.1 oz) 02/17/24 : 46.9 kg (103 lb 8 oz) 02/04/24 : 106 kg (233 lb 11 oz) 02/04/24 : 106 kg (234 lb 2.1 oz) 12/05/23 : 104 kg (230 lb) 12/05/23 : 104 kg (230 lb) 11/15/23 : 106 kg (233 lb 11 oz) 10/27/23 : 104 kg (230 lb) 10/12/23 : 104 kg (229 lb) 08/03/23 : 99.9 kg (220 lb 3.2 oz) Weight Change %: Weight History / % Weight Change: gain 49# in 1 year due to stress eating. - stated 20# loss in 2 weeks but weight is the same as last admission Significant Weight Loss: No Significant Weight Gain: Non-fluid related Nutrition Focused Physical Exam Findings: defer: not indicated Nutrition Significant Labs: CBC Trend: Results from last 7 days Lab Units 02/29/24 0502/28/2431702/27/24 1832 WBC AUTO x10*3/uL 5.7 9.7 12.5* RBC AUTO x10*6/uL 3.82* 4.02 4.16 HEMOGLOBIN g/dL 10.5* 11.2* 11.4* HEMATOCRIT % 34.4* 35.7* 36.8 MCV fL 90 89 89 PLATELETS AUTO x10*3/uL 322 344 327 , Renal Lab Trend: Results from last 7 days Lab Units 02/29/24 0502/28/2431702/27/24 1832 POTASSIUM mmol/L 3.9 4.0 4.1 SODIUM mmol/L 135* 134* 134* EGFR mL/min/1.73m*2 >90 >90 74 BUN mg/dL 9 12 15 CREATININE mg/dL 0.64 0.67 0.95 , Lipid Panel: Lab Results Component Value Date CHOL 131 02/04/2024 HDL 22.0 02/04/2024 CHHDL 6.0 02/04/2024 LDLF 123 (H) 04/03/2023 VLDL 38 04/03/2023 TRIG 188 (H) 04/03/2023 Nutrition Specific Medications: Scheduled medications ascorbic acid, 1,000 mg, oral, Nightly furosemide, 40 mg, oral, Daily insulin lispro, 0-5 Units, subcutaneous, TID [Held by provider] pancrelipase (Eof-Rung-Njzh), 2 capsule, oral, TID pantoprazole, 40 mg, intravenous, Daily polyethylene glycol, 17 g, oral, Daily potassium chloride CR, 20 mEq, oral, Daily promethazine, , , I/O: Last BM Date: 02/28/24; Dietary Orders (From admission, onward) Start Ordered 02/28/24405 Adult diet Clear Liquid Diet effective now Question: Diet type Answer: Clear Liquid 02/28/24 0405 Estimated Needs: Total Energy Estimated Needs (kCal): 2000 kCal Method for Estimating Needs: [place] Lyn = [id number] kcal Total Protein Estimated Needs (g): 100 g Method for Estimating Needs: 1.5 gm/kg IBW = 100 gm Total Fluid Estimated Needs (mL): 2000 mL Method for Estimating Needs: 1 ml/kcal Nutrition Diagnosis Malnutrition Diagnosis Patient has Malnutrition Diagnosis: No Nutrition Diagnosis Patient has Nutrition Diagnosis: Yes Diagnosis Status (1): New Nutrition Diagnosis 1: Altered nutrition related to laboratory values Related to (1): diabetes As Evidenced by (1): elevated blood glucose Additional Nutrition Diagnosis: Diagnosis 3 Diagnosis Status (2): New Nutrition Diagnosis 2: Altered GI function Related to (2): chronic pancreatitis, medications As Evidenced by (2): abdominal pain, constipation Diagnosis Status (3): New Nutrition Diagnosis 3: Obese Related to (3): history of excess calorie intake As Evidenced by (3): BMI 40.19 kg/m2 Nutrition Interventions/Recommendations Nutrition Prescription: Individualized Nutrition Prescription Provided for : Oral nutrition Nutrition Interventions: Interventions: Meals and snacks Meals and Snacks: Carbohydrate-modified diet Goal: Currently clear liquid diet monitor for ability to advance to [facility] Collaboration and Referral of Nutrition Care: Team meeting involving nutrition professional Goal: IDT meeting Nutrition Education: previously instructed on DM diet Nutrition Monitoring and Evaluation Food/Nutrient Related History Monitoring Monitoring and Evaluation Plan: Energy intake Energy Intake: Estimated energy intake Criteria: Monitor clear liquids status to provide adequate nutrition Body Composition/Growth/Weight History Monitoring and Evaluation Plan: BMI Body Mass: Body mass index (BMI) Criteria: Would benefit from slow weight loss to healthy BMI Biochemical Data, Medical Tests and Procedures Monitoring and Evaluation Plan: Glucose/endocrine profile Glucose/Endocrine Profile: Glucose, casual Criteria: 100-140 mg/dl Constipation - monitor for BM Time Spent/Follow-up Reminder: Time Spent (min): 30 minutes Last Date of Nutrition Visit: 02/29/24 Nutrition Follow-Up Needed?: 5-7 days Follow up Comment: diet advance, po, labs Alaina Paez RDN, LD T [facility] Work Phone: 02-29-2024 Plan of care note The patient's goals for the shift include pain control The clinical goals for the shift include pain control Pt c/o pain in mid to lower abd and around R rib area. Pain controlled with PRN medication. [facility] Work Phone: 02-28-2024 Plan of care note The patient's goals for the shift include pain control The clinical goals for the shift include pain control Problem: Pain - Adult Goal: Verbalizes/displays adequate comfort level or baseline comfort level Outcome: Progressing Problem: Safety - Adult Goal: Free from fall injury Outcome: Progressing Problem: Discharge Planning Goal: Discharge to home or other facility with appropriate resources Outcome: Progressing Problem: Chronic Conditions and Co-morbidities Goal: Patient's chronic conditions and co-morbidity symptoms are monitored and maintained or improved Outcome: Progressing Problem: Fall/Injury Goal: Not fall by end of shift Outcome: Progressing . [facility] 02-28-2024 Note Formatting of this n ote might be different from the original. Patient admitted for pulmonary embolism on the right side started on heparin drip. At home she is on Lovenox she did miss 1 dose. She has a history of factor V Leiden. She is asymptomatic with this. Ultrasound is in the room with her currently doing duplex on lower extremities. Dr Purvis hematology on-call was consulted through the ER as well. Patient has idiopathic chronic pancreatitis. Dr. Hicks was consulted through the ER and did not feel surgical intervention was required at this time. Recommendations to treat as if it is typical pancreatitis. Patient is having a lot of pain and currently on Dilaudid. She admits to having a very high tolerance to pain medications. We will change her Dilaudid to every 3 hours instead of 4. She does see pain management in the community. It is currently on a clear liquid diet. We will advance as tolerated. Patient requesting we resume her clonazepam at at bedtime. Long discussion on polypharmacy. [facility] Work Phone: 02-28-2024 Plan of care note The patient's goals for the shift include pain control The clinical goals for the shift include pain control Over the shift, the patient had tolerable pain control with prescribed PRN pain medication [facility] Work Phone: 02-28-2024 History and physical note History Of Present Illness Dorothea Rutledge is a 48 y.o. female presenting with abdominal pain, nausea vomiting for 2 to 3 days along with constipation no diarrhea or bleeding from anywhere found to have acute pancreatitis with possible pseudocyst/walled off necrosis in context of chronic pancreatitis. Patient has recent history of choledocholithiasis, ERCP and drained pancreatic cyst. She has chronic abdominal pain and takes medical marijuana. No fever chills. Denies any headache or focal weakness. No chest pain or shortness of breath or palpitations or syncope. No lightheadedness or dizziness. She has incidental finding of acute pulmonary embolism has been on Lovenox. Case was discussed with hematology on-call by ER and recommendation for heparin drip. Gastroenterology also consulted. No URI or cough or runny nose or sore throat or sinus or nasal congestion. Denies any joint pains muscle aches or skin rash. No back pain flank pain hematuria or dysuria. No appetite change or weight loss. Currently hemodynamically stable protecting airways maintaining vital saturations. No other complaints at this time Patient missed 1 dose of Lovenox in the last 3 to 4 days according to her Past Medical History Past Medical History: Diagnosis Date Awareness under anesthesia Depression Diabetes mellitus (Multi) DVT (deep venous thrombosis) (Multi) Factor V Leiden (Multi) Pancreatitis (HHS-HCC) PE (pulmonary thromboembolism) (Multi) Seizure (Multi) Stroke (Multi) Hypertension Hyperlipidemia Diabetes mellitus type 2 Pulmonary embolism Seizures CVA Obesity Depression Factor V Leyden deficiency Chronic pancreatitis Surgical History Past Surgical History: Procedure Laterality Date APPENDECTOMY SECTION, LOW TRANSVERSE x2 CHOLECYSTECTOMY ERCP W/ PLASTIC STENT PLACEMENT HYSTERECTOMY IR CVC PORT PLACEMENT 08/26/2023 IR CVC PORT PLACEMENT 08/26/2023 [facility] ANGIO MR HEAD ANGIO WO IV CONTRAST 10/16/2017 MR HEAD ANGIO WO IV CONTRAST [facility] MR NECK ANGIO WO IV CONTRAST 10/16/2017 MR NECK ANGIO WO IV CONTRAST [facility] US GUIDED PERCUTANEOUS PLACEMENT 06/08/2019 US GUIDED PERCUTANEOUS PLACEMENT [facility] Social History She reports that she has never smoked. She uses smokeless tobacco. She reports that she does not currently use alcohol. She reports current drug use. Drug: Marijuana. Vapes and medical marijuana Family History Family History Problem Relation Name Age of Onset Coronary artery disease Mother Hypertension, blood clots Allergies Gabapentin, Sulfa (sulfonamide antibiotics), Topiramate, and Penicillins Review of Systems All other 12 point review of systems negative except HPI Physical Exam General Appearance: AAO x 3, not in acute distress Skin: skin color pink, warm, and dry; no suspicious rashes or lesions Eyes : PERRL, EOM's intact ENT: mucous membranes pink and moist Neck: normocephalic Respiratory: lungs clear to auscultation anteriorly; no wheezing, rhonchi, or crackles. Heart: regular rate and rhythm. Abdomen: Nondistended, positive bowel sounds x4, soft, tender Extremities: no edema Peripheral pulses: normal x4 extremities Neuro: alert, coherent and conversant, no focal motor deficits Last Recorded Vitals Blood pressure 151/83, pulse (!) 108, temperature 36.4 C (97.5 F), temperature source Tympanic, resp. rate 18, height 1.626 m (5' 4 ), weight 106 kg (234 lb 2.1 oz), SpO2 97%. Relevant Results Scheduled medications ARIPiprazole, 10 mg, oral, Daily ascorbic acid, 1,000 mg, oral, Nightly cloNIDine, 0.2 mg, oral, Daily divalproex, 250 mg, oral, BID doxepin, 10 mg, oral, Nightly furosemide, 40 mg, oral, Daily insulin lispro, 0-5 Units, subcutaneous, TID linaCLOtide, 290 mcg, oral, Daily before breakfast metoprolol succinate XL, 25 mg, oral, Daily pancrelipase (Vof-Tzrl-Ohpd), 2 capsule, oral, TID pantoprazole, 40 mg, intravenous, Daily polyethylene glycol, 17 g, oral, Daily potassium chloride CR, 20 mEq, oral, Daily rOPINIRole, 0.5 mg, oral, BID valACYclovir, 500 mg, oral, Daily venlafaxine XR, 150 mg, oral, Daily venlafaxine XR, 75 mg, oral, Daily Continuous medications heparin, 0-4,500 Units/hr, Last Rate: 1,900 Units/hr (02/28/24318) sodium chloride 0.9%, 125 mL/hr, Last Rate: 125 mL/hr (02/28/24418) PRN medications PRN medications: acetaminophen OR acetaminophen OR acetaminophen, acetaminophen OR acetaminophen OR acetaminophen, benztropine, dextrose, dextrose, glucagon, glucagon, HYDROmorphone, HYDROmorphone, HYDROmorphone, ondansetron ODT OR ondansetron Results for orders placed or performed during the hospital encounter of 02/27/24 (from the past 24 hour(s)) CBC and Auto Differential Result Value Ref Range WBC 12.5 (H) 4.4 - 11.3 x10*3/uL nRBC 0.0 0.0 - 0.0 /100 WBCs RBC 4.16 4.00 - 5.20 x10*6/uL Hemoglobin 11.4 (L) 12.0 - 16.0 g/dL Hematocrit 36.8 36.0 - 46.0 % MCV 89 80 - 100 fL MCH 27.4 26.0 - 34.0 pg MCHC 31.0 (L) 32.0 - 36.0 g/dL RDW 14.0 11.5 - 14.5 % Platelets 327 150 - 450 x10*3/uL Neutrophils % 68.7 40.0 - 80.0 % Immature Granulocytes %, Automated 0.9 0.0 - 0.9 % Lymphocytes % 23.6 13.0 - 44.0 % Monocytes % 5.8 2.0 - 10.0 % Eosinophils % 0.8 0.0 - 6.0 % Basophils % 0.2 0.0 - 2.0 % Neutrophils Absolute 8.58 (H) 1.20 - 7.70 x10*3/uL Immature Granulocytes Absolute, Automated 0.11 0.00 - 0.70 x10*3/uL Lymphocytes Absolute 2.94 1.20 - 4.80 x10*3/uL Monocytes Absolute 0.72 0.10 - 1.00 x10*3/uL Eosinophils Absolute 0.10 0.00 - 0.70 x10*3/uL Basophils Absolute 0.03 0.00 - 0.10 x10*3/uL Basic metabolic panel Result Value Ref Range Glucose 200 (H) 74 - 99 mg/dL Sodium 134 (L) 136 - 145 mmol/L Potassium 4.1 3.5 - 5.3 mmol/L Chloride 100 98 - 107 mmol/L Bicarbonate 24 21 - 32 mmol/L Anion Gap 14 10 - 20 mmol/L Urea Nitrogen 15 6 - 23 mg/dL Creatinine 0.95 0.50 - 1.05 mg/dL eGFR 74 >60 mL/min/1.73m*2 Calcium 8.8 8.6 - 10.3 mg/dL Lipase Result Value Ref Range Lipase 62 9 - 82 U/L Hepatic function panel Result Value Ref Range Albumin 3.8 3.4 - 5.0 g/dL Bilirubin, Total 0.3 0.0 - 1.2 mg/dL Bilirubin, Direct 0.1 0.0 - 0.3 mg/dL Alkaline Phosphatase 147 (H) 33 - 110 U/L ALT 22 7 - 45 U/L AST 21 9 - 39 U/L Total Protein 7.7 6.4 - 8.2 g/dL Lactate Result Value Ref Range Lactate 1.9 0.4 - 2.0 mmol/L Urinalysis with Reflex Culture and Microscopic Result Value Ref Range Color, Urine Light-Yellow Light-Yellow, Yellow, Dark-Yellow Appearance, Urine Clear Clear Specific [place], Urine 1.033 1.005 - 1.035 pH, Urine 6.5 5.0, 5.5, 6.0, 6.5, 7.0, 7.5, 8.0 Protein, Urine 30 (1+) (A) NEGATIVE, 10 (TRACE), 20 (TRACE) mg/dL Glucose, Urine Normal Normal mg/dL Blood, Urine NEGATIVE NEGATIVE Ketones, Urine TRACE (A) NEGATIVE mg/dL Bilirubin, Urine NEGATIVE NEGATIVE Urobilinogen, Urine Normal Normal mg/dL Nitrite, Urine NEGATIVE NEGATIVE Leukocyte Esterase, Urine NEGATIVE NEGATIVE Urinalysis Microscopic Result Value Ref Range WBC, Urine 1-5 1-5, NONE /HPF RBC, Urine 1-2 NONE, 1-2, 3-5 /HPF Squamous Epithelial Cells, Urine 1-9 (SPARSE) Reference range not established. /HPF Mucus, Urine FEW Reference range not established. /LPF Protime-INR Result Value Ref Range Protime 13.8 (H) 9.8 - 12.8 seconds INR 1.2 (H) 0.9 - 1.1 aPTT - baseline Result Value Ref Range aPTT 30 27 - 38 seconds Lavender Top Result Value Ref Range Extra Tube Hold for add-ons. SST TOP Result Value Ref Range Extra Tube Hold for add-ons. PST Top Result Value Ref Range Extra Tube Hold for add-ons. PST Top Result Value Ref Range Extra Tube Hold for add-ons. Comprehensive metabolic panel Result Value Ref Range Glucose 125 (H) 74 - 99 mg/dL Sodium 134 (L) 136 - 145 mmol/L Potassium 4.0 3.5 - 5.3 mmol/L Chloride 101 98 - 107 mmol/L Bicarbonate 24 21 - 32 mmol/L Anion Gap 13 10 - 20 mmol/L Urea Nitrogen 12 6 - 23 mg/dL Creatinine 0.67 0.50 - 1.05 mg/dL eGFR >90 >60 mL/min/1.73m*2 Calcium 8.4 (L) 8.6 - 10.3 mg/dL Albumin 3.6 3.4 - 5.0 g/dL Alkaline Phosphatase 144 (H) 33 - 110 U/L Total Protein 7.3 6.4 - 8.2 g/dL AST 36 9 - 39 U/L Bilirubin, Total 0.3 0.0 - 1.2 mg/dL ALT 29 7 - 45 U/L CBC Result Value Ref Range WBC 9.7 4.4 - 11.3 x10*3/uL nRBC 0.0 0.0 - 0.0 /100 WBCs RBC 4.02 4.00 - 5.20 x10*6/uL Hemoglobin 11.2 (L) 12.0 - 16.0 g/dL Hematocrit 35.7 (L) 36.0 - 46.0 % MCV 89 80 - 100 fL MCH 27.9 26.0 - 34.0 pg MCHC 31.4 (L) 32.0 - 36.0 g/dL RDW 14.2 11.5 - 14.5 % Platelets 344 150 - 450 x10*3/uL [place] Top Result Value Ref Range Extra Tube Hold for add-ons. CT angio chest for pulmonary embolism Result Date: 02/28/2024 STUDY: CT Angiogram of the Chest; 02/27/2024 11:09 PM INDICATION: Filling defect in right lower lobe. History of pulmonary embolism. COMPARISON: None Available. ACCESSION NUMBER(S): [id number] ORDERING CLINICIAN: MIKE LAND TECHNIQUE: CTA of the chest was performed with intravenous contrast. Images are reviewed and processed at a workstation according to the CT angiogram protocol with 3-D and/or MIP post processing imaging generated. Automated mA/kV exposure control was utilized and patient examination was performed in strict accordance with principles of ALARA. FINDINGS: Pulmonary arteries are adequately opacified with focal embolus right lower lobe medial pulmonary artery.. The thoracic aorta is normal in course and caliber without dissection or aneurysm. The heart is enlarged size without pericardial effusion. Thoracic lymph nodes are not enlarged. There is no pleural effusion, pleural thickening, or pneumothorax. The airways are patent. Lungs are clear without consolidation, interstitial disease, or suspicious nodules. There are a few small calcified granulomas. Upper abdomen demonstrates diffuse fatty infiltration of the liver.. There are no acute fractures. No suspicious bony lesions. 1.Focal embolus right lower lobe medial pulmonary artery. No findings of heart strain. Critical results were discussed with.Dr. Mike Israel at 1:00 AM. 2.Fatty liver. Signed by Edwin Alejandro DO CT abdomen pelvis w IV contrast Result Date: 02/27/2024 Interpreted By: Letha Jade, STUDY: CT ABDOMEN PELVIS W IV CONTRAST; ; 02/27/2024 8:13 pm INDICATION: Signs/Symptoms:diffuse abdominal pain. COMPARISON: 02/15/2024. ACCESSION NUMBER(S): [id number] ORDERING CLINICIAN: HEMALATHA JACOBSON TECHNIQUE: Axial CT images of the abdomen and pelvis with coronal and sagittal reconstructed images performed after intravenous administration of 68 cc Omnipaque 350. FINDINGS: LOWER CHEST: There is an apparent small filling defect in the right lower lobe posterior basal segmental artery (series 2, images 15-19), suspicious for pulmonary embolus. Confirmation and evaluation for additional possible clot burden in the pulmonary arterial system suggested with CT angiography of the chest for PE. Normal heart size. Distal end of central venous catheter in the right atrium. BONES: No acute osseous abnormality. Incidental small bone islands in the pelvis and proximal right femur. ABDOMINAL WALL: Patchy subcutaneous induration and locules of air, probably relate to medication injection, also present previously. Small fat containing umbilical hernia. ABDOMEN: LIVER: Enlarged and steatotic. No definite focal lesion. BILE DUCTS: No biliary ductal dilation. Biliary stent is normally positioned. GALLBLADDER: Absent, as before. PANCREAS: Pancreatic atrophy and ductal dilation again seen. Peripancreatic edema compatible with acute pancreatitis. There is a new small fluid collection in the pancreatic body near the neck, measuring up to transaxial diameters, 20 mm in CC diameter (series 2, images 57-61), suggesting new small region of the walled-off necrosis or developing pseudocyst. There is interval decrease in size of a collection in the root of the mesentery measuring up to 4.3 x 2.1 cm in transaxial diameters and 2.5 cm in CC diameter. Sterility of fluid within these collections can not be determined by imaging. SPLEEN: Within normal limits. ADRENALS: Within normal limits. KIDNEYS and URETERS: Within normal limits. VESSELS: Metallic density in the IVC again seen suggesting prior placement of IVC filter, with effacement of the IVC lumen in this region, suggesting focal occlusion. Otherwise, within normal limits. RETROPERITONEUM: No pathologically enlarged retroperitoneal lymph nodes. PELVIS: REPRODUCTIVE ORGANS: No pelvic masses. Uterus and adnexae are within normal limits BLADDER: Decompressed, and not well evaluated. No bladder calculus or obvious mass. No obvious perivesical inflammatory change. BOWEL: The posterior wall of the gastric antrum in the medial pierre of the 1st and 2nd portions of the duodenal are adherent to the inflamed pancreatic head. No dilated or thickened or definitely abnormally enhancing bowel. Colonic diverticula without inflammation. Moderate to large volume of colonic stool. Normal appendix. PERITONEUM: No ascites or free air, no fluid collection. Peripancreatic edema compatible with acute pancreatitis. There is a new small fluid collection in the pancreatic body near the neck, measuring up to transaxial diameters, 20 mm in CC diameter (series 2, images 57-61), suggesting new small region of the walled-off necrosis or developing pseudocyst. There is interval decrease in size of a collection in the root of the mesentery measuring up to 4.3 x 2.1 cm in transaxial diameters and 2.5 cm in CC diameter. Sterility of fluid within these collections can not be determined by imaging. There is an apparent small filling defect in the right lower lobe posterior basal segmental artery (series 2, images 15-19), suspicious for pulmonary embolus. Confirmation and evaluation for additional possible clot burden in the pulmonary arterial system suggested with CT angiography of the chest for PE. The posterior wall of the gastric antrum in the medial pierre of the 1st and 2nd portions of the duodenal are adherent to the inflamed pancreatic head. Moderate to large volume of colonic stool, suggesting constipation. Hepatomegaly and hepatic steatosis. Foci of induration and subcutaneous air in the ventral abdominal wall, presumably related to medication injection and also present previously. Additional findings as discussed above. MACRO: None Signed by: Letha Jade 02/27/2024 9:21 PM Dictation workstation: [id number] All data reviewed by me independently Assessment/Plan Principal Problem: Acute pancreatitis without necrosis or infection, unspecified (HHS-HCC) 48-year-old female with history of Hypertension Hyperlipidemia Diabetes mellitus type 2 Pulmonary embolism Seizures CVA Obesity Depression Factor V Leyden deficiency Chronic pancreatitis Presented with acute pancreatitis Acute pulmonary embolism Plan Heparin drip Cardiopulmonary monitoring Clear liquids Supportive care Symptomatic management Resume home medicines as tolerated Avoid polypharmacy On clonidine point 2 mg p.o. daily Depakote 200 mg p.o. twice daily Follow vitals Fall, aspiration, seizure precautions Lasix 40 Mg p.o. daily Insulin sliding scale Metoprolol 25 mg p.o. daily for hypertension On Creon for chronic pancreatitis Antiemetics Pain control with Dilaudid IV as ordered On Valtrex for HSV prophylaxis Continue psych medicines including venlafaxine and Abilify Nutrition multivitamin Venous duplex ultrasound lower extremity to evaluate DVT Echocardiogram Follow clinical progress To start diet when able to tolerate Follow gastroenterology hematology outpatient DVT prophylaxis addressed per policy Further management as clinical course evolves Brea Nolen MD T [facility] Work Phone: 02-28-2024 History and physical note History Of Present Illness Dorothea Rutledge is a 48 y.o. female presenting with abdominal pain, nausea vomiting for 2 to 3 days along with constipation no diarrhea or bleeding from anywhere found to have acute pancreatitis with possible pseudocyst/walled off necrosis in context of chronic pancreatitis. Patient has recent history of choledocholithiasis, ERCP and drained pancreatic cyst. She has chronic abdominal pain and takes medical marijuana. No fever chills. Denies any headache or focal weakness. No chest pain or shortness of breath or palpitations or syncope. No lightheadedness or dizziness. She has incidental finding of acute pulmonary embolism has been on Lovenox. Case was discussed with hematology on-call by ER and recommendation for heparin drip. Gastroenterology also consulted. No URI or cough or runny nose or sore throat or sinus or nasal congestion. Denies any joint pains muscle aches or skin rash. No back pain flank pain hematuria or dysuria. No appetite change or weight loss. Currently hemodynamically stable protecting airways maintaining vital saturations. No other complaints at this time Patient missed 1 dose of Lovenox in the last 3 to 4 days according to her Past Medical History Past Medical History: Diagnosis Date Awareness under anesthesia Depression Diabetes mellitus (Multi) DVT (deep venous thrombosis) (Multi) Factor V Leiden (Multi) Pancreatitis (HHS-HCC) PE (pulmonary thromboembolism) (Multi) Seizure (Multi) Stroke (Multi) Hypertension Hyperlipidemia Diabetes mellitus type 2 Pulmonary embolism Seizures CVA Obesity Depression Factor V Leyden deficiency Chronic pancreatitis Surgical History Past Surgical History: Procedure Laterality Date APPENDECTOMY SECTION, LOW TRANSVERSE x2 CHOLECYSTECTOMY ERCP W/ PLASTIC STENT PLACEMENT HYSTERECTOMY IR CVC PORT PLACEMENT 08/26/2023 IR CVC PORT PLACEMENT 08/26/2023 [facility] ANGIO MR HEAD ANGIO WO IV CONTRAST 10/16/2017 MR HEAD ANGIO WO IV CONTRAST [facility] MR NECK ANGIO WO IV CONTRAST 10/16/2017 MR NECK ANGIO WO IV CONTRAST [facility] US GUIDED PERCUTANEOUS PLACEMENT 06/08/2019 US GUIDED PERCUTANEOUS PLACEMENT [facility] Social History She reports that she has never smoked. She uses smokeless tobacco. She reports that she does not currently use alcohol. She reports current drug use. Drug: Marijuana. Vapes and medical marijuana Family History Family History Problem Relation Name Age of Onset Coronary artery disease Mother Hypertension, blood clots Allergies Gabapentin, Sulfa (sulfonamide antibiotics), Topiramate, and Penicillins Review of Systems All other 12 point review of systems negative except HPI Physical Exam General Appearance: AAO x 3, not in acute distress Skin: skin color pink, warm, and dry; no suspicious rashes or lesions Eyes : PERRL, EOM's intact ENT: mucous membranes pink and moist Neck: normocephalic Respiratory: lungs clear to auscultation anteriorly; no wheezing, rhonchi, or crackles. Heart: regular rate and rhythm. Abdomen: Nondistended, positive bowel sounds x4, soft, tender Extremities: no edema Peripheral pulses: normal x4 extremities Neuro: alert, coherent and conversant, no focal motor deficits Last Recorded Vitals Blood pressure 151/83, pulse (!) 108, temperature 36.4 C (97.5 F), temperature source Tympanic, resp. rate 18, height 1.626 m (5' 4 ), weight 106 kg (234 lb 2.1 oz), SpO2 97%. Relevant Results Scheduled medications ARIPiprazole, 10 mg, oral, Daily ascorbic acid, 1,000 mg, oral, Nightly cloNIDine, 0.2 mg, oral, Daily divalproex, 250 mg, oral, BID doxepin, 10 mg, oral, Nightly furosemide, 40 mg, oral, Daily insulin lispro, 0-5 Units, subcutaneous, TID linaCLOtide, 290 mcg, oral, Daily before breakfast metoprolol succinate XL, 25 mg, oral, Daily pancrelipase (Aqw-Xhnt-Suim), 2 capsule, oral, TID pantoprazole, 40 mg, intravenous, Daily polyethylene glycol, 17 g, oral, Daily potassium chloride CR, 20 mEq, oral, Daily rOPINIRole, 0.5 mg, oral, BID valACYclovir, 500 mg, oral, Daily venlafaxine XR, 150 mg, oral, Daily venlafaxine XR, 75 mg, oral, Daily Continuous medications heparin, 0-4,500 Units/hr, Last Rate: 1,900 Units/hr (02/28/24 0319) sodium chloride 0.9%, 125 mL/hr, Last Rate: 125 mL/hr (02/28/24 0419) PRN medications PRN medications: acetaminophen OR acetaminophen OR acetaminophen, acetaminophen OR acetaminophen OR acetaminophen, benztropine, dextrose, dextrose, glucagon, glucagon, HYDROmorphone, HYDROmorphone, HYDROmorphone, ondansetron ODT OR ondansetron Results for orders placed or performed during the hospital encounter of 02/27/24 (from the past 24 hour(s)) CBC and Auto Differential Result Value Ref Range WBC 12.5 (H) 4.4 - 11.3 x10*3/uL nRBC 0.0 0.0 - 0.0 /100 WBCs RBC 4.16 4.00 - 5.20 x10*6/uL Hemoglobin 11.4 (L) 12.0 - 16.0 g/dL Hematocrit 36.8 36.0 - 46.0 % MCV 89 80 - 100 fL MCH 27.4 26.0 - 34.0 pg MCHC 31.0 (L) 32.0 - 36.0 g/dL RDW 14.0 11.5 - 14.5 % Platelets 327 150 - 450 x10*3/uL Neutrophils % 68.7 40.0 - 80.0 % Immature Granulocytes %, Automated 0.9 0.0 - 0.9 % Lymphocytes % 23.6 13.0 - 44.0 % Monocytes % 5.8 2.0 - 10.0 % Eosinophils % 0.8 0.0 - 6.0 % Basophils % 0.2 0.0 - 2.0 % Neutrophils Absolute 8.58 (H) 1.20 - 7.70 x10*3/uL Immature Granulocytes Absolute, Automated 0.11 0.00 - 0.70 x10*3/uL Lymphocytes Absolute 2.94 1.20 - 4.80 x10*3/uL Monocytes Absolute 0.72 0.10 - 1.00 x10*3/uL Eosinophils Absolute 0.10 0.00 - 0.70 x10*3/uL Basophils Absolute 0.03 0.00 - 0.10 x10*3/uL Basic metabolic panel Result Value Ref Range Glucose 200 (H) 74 - 99 mg/dL Sodium 134 (L) 136 - 145 mmol/L Potassium 4.1 3.5 - 5.3 mmol/L Chloride 100 98 - 107 mmol/L Bicarbonate 24 21 - 32 mmol/L Anion Gap 14 10 - 20 mmol/L Urea Nitrogen 15 6 - 23 mg/dL Creatinine 0.95 0.50 - 1.05 mg/dL eGFR 74 >60 mL/min/1.73m*2 Calcium 8.8 8.6 - 10.3 mg/dL Lipase Result Value Ref Range Lipase 62 9 - 82 U/L Hepatic function panel Result Value Ref Range Albumin 3.8 3.4 - 5.0 g/dL Bilirubin, Total 0.3 0.0 - 1.2 mg/dL Bilirubin, Direct 0.1 0.0 - 0.3 mg/dL Alkaline Phosphatase 147 (H) 33 - 110 U/L ALT 22 7 - 45 U/L AST 21 9 - 39 U/L Total Protein 7.7 6.4 - 8.2 g/dL Lactate Result Value Ref Range Lactate 1.9 0.4 - 2.0 mmol/L Urinalysis with Reflex Culture and Microscopic Result Value Ref Range Color, Urine Light-Yellow Light-Yellow, Yellow, Dark-Yellow Appearance, Urine Clear Clear Specific [place], Urine 1.033 1.005 - 1.035 pH, Urine 6.5 5.0, 5.5, 6.0, 6.5, 7.0, 7.5, 8.0 Protein, Urine 30 (1+) (A) NEGATIVE, 10 (TRACE), 20 (TRACE) mg/dL Glucose, Urine Normal Normal mg/dL Blood, Urine NEGATIVE NEGATIVE Ketones, Urine TRACE (A) NEGATIVE mg/dL Bilirubin, Urine NEGATIVE NEGATIVE Urobilinogen, Urine Normal Normal mg/dL Nitrite, Urine NEGATIVE NEGATIVE Leukocyte Esterase, Urine NEGATIVE NEGATIVE Urinalysis Microscopic Result Value Ref Range WBC, Urine 1-5 1-5, NONE /HPF RBC, Urine 1-2 NONE, 1-2, 3-5 /HPF Squamous Epithelial Cells, Urine 1-9 (SPARSE) Reference range not established. /HPF Mucus, Urine FEW Reference range not established. /LPF Protime-INR Result Value Ref Range Protime 13.8 (H) 9.8 - 12.8 seconds INR 1.2 (H) 0.9 - 1.1 aPTT - baseline Result Value Ref Range aPTT 30 27 - 38 seconds [place] Top Result Value Ref Range Extra Tube Hold for add-ons. SST TOP Result Value Ref Range Extra Tube Hold for add-ons. PST Top Result Value Ref Range Extra Tube Hold for add-ons. PST Top Result Value Ref Range Extra Tube Hold for add-ons. Comprehensive metabolic panel Result Value Ref Range Glucose 125 (H) 74 - 99 mg/dL Sodium 134 (L) 136 - 145 mmol/L Potassium 4.0 3.5 - 5.3 mmol/L Chloride 101 98 - 107 mmol/L Bicarbonate 24 21 - 32 mmol/L Anion Gap 13 10 - 20 mmol/L Urea Nitrogen 12 6 - 23 mg/dL Creatinine 0.67 0.50 - 1.05 mg/dL eGFR >90 >60 mL/min/1.73m*2 Calcium 8.4 (L) 8.6 - 10.3 mg/dL Albumin 3.6 3.4 - 5.0 g/dL Alkaline Phosphatase 144 (H) 33 - 110 U/L Total Protein 7.3 6.4 - 8.2 g/dL AST 36 9 - 39 U/L Bilirubin, Total 0.3 0.0 - 1.2 mg/dL ALT 29 7 - 45 U/L CBC Result Value Ref Range WBC 9.7 4.4 - 11.3 x10*3/uL nRBC 0.0 0.0 - 0.0 /100 WBCs RBC 4.02 4.00 - 5.20 x10*6/uL Hemoglobin 11.2 (L) 12.0 - 16.0 g/dL Hematocrit 35.7 (L) 36.0 - 46.0 % MCV 89 80 - 100 fL MCH 27.9 26.0 - 34.0 pg MCHC 31.4 (L) 32.0 - 36.0 g/dL RDW 14.2 11.5 - 14.5 % Platelets 344 150 - 450 x10*3/uL [place] Top Result Value Ref Range Extra Tube Hold for add-ons. CT angio chest for pulmonary embolism Result Date: 02/28/2024 STUDY: CT Angiogram of the Chest; 02/27/2024 11:09 PM INDICATION: Filling defect in right lower lobe. History of pulmonary embolism. COMPARISON: None Available. ACCESSION NUMBER(S): [id number] ORDERING CLINICIAN: MIKE LAND TECHNIQUE: CTA of the chest was performed with intravenous contrast. Images are reviewed and processed at a workstation according to the CT angiogram protocol with 3-D and/or MIP post processing imaging generated. Automated mA/kV exposure control was utilized and patient examination was performed in strict accordance with principles of ALARA. FINDINGS: Pulmonary arteries are adequately opacified with focal embolus right lower lobe medial pulmonary artery.. The thoracic aorta is normal in course and caliber without dissection or aneurysm. The heart is enlarged size without pericardial effusion. Thoracic lymph nodes are not enlarged. There is no pleural effusion, pleural thickening, or pneumothorax. The airways are patent. Lungs are clear without consolidation, interstitial disease, or suspicious nodules. There are a few small calcified granulomas. Upper abdomen demonstrates diffuse fatty infiltration of the liver.. There are no acute fractures. No suspicious bony lesions. 1.Focal embolus right lower lobe medial pulmonary artery. No findings of heart strain. Critical results were discussed with.Dr. Mike Israel at 1:00 AM. 2.Fatty liver. Signed by Edwin Alejandro, DO CT abdomen pelvis w IV contrast Result Date: 02/27/2024 Interpreted By: Letha Jade, STUDY: CT ABDOMEN PELVIS W IV CONTRAST; ; 02/27/2024 8:13 pm INDICATION: Signs/Symptoms:diffuse abdominal pain. COMPARISON: 02/15/2024. ACCESSION NUMBER(S): [id number] ORDERING CLINICIAN: HEMALATHA JACOBSON TECHNIQUE: Axial CT images of the abdomen and pelvis with coronal and sagittal reconstructed images performed after intravenous administration of 68 cc Omnipaque 350. FINDINGS: LOWER CHEST: There is an apparent small filling defect in the right lower lobe posterior basal segmental artery (series 2, images 15-19), suspicious for pulmonary embolus. Confirmation and evaluation for additional possible clot burden in the pulmonary arterial system suggested with CT angiography of the chest for PE. Normal heart size. Distal end of central venous catheter in the right atrium. BONES: No acute osseous abnormality. Incidental small bone islands in the pelvis and proximal right femur. ABDOMINAL WALL: Patchy subcutaneous induration and locules of air, probably relate to medication injection, also present previously. Small fat containing umbilical hernia. ABDOMEN: LIVER: Enlarged and steatotic. No definite focal lesion. BILE DUCTS: No biliary ductal dilation. Biliary stent is normally positioned. GALLBLADDER: Absent, as before. PANCREAS: Pancreatic atrophy and ductal dilation again seen. Peripancreatic edema compatible with acute pancreatitis. There is a new small fluid collection in the pancreatic body near the neck, measuring up to transaxial diameters, 20 mm in CC diameter (series 2, images 57-61), suggesting new small region of the walled-off necrosis or developing pseudocyst. There is interval decrease in size of a collection in the root of the mesentery measuring up to 4.3 x 2.1 cm in transaxial diameters and 2.5 cm in CC diameter. Sterility of fluid within these collections can not be determined by imaging. SPLEEN: Within normal limits. ADRENALS: Within normal limits. KIDNEYS and URETERS: Within normal limits. VESSELS: Metallic density in the IVC again seen suggesting prior placement of IVC filter, with effacement of the IVC lumen in this region, suggesting focal occlusion. Otherwise, within normal limits. RETROPERITONEUM: No pathologically enlarged retroperitoneal lymph nodes. PELVIS: REPRODUCTIVE ORGANS: No pelvic masses. Uterus and adnexae are within normal limits BLADDER: Decompressed, and not well evaluated. No bladder calculus or obvious mass. No obvious perivesical inflammatory change. BOWEL: The posterior wall of the gastric antrum in the medial pierre of the 1st and 2nd portions of the duodenal are adherent to the inflamed pancreatic head. No dilated or thickened or definitely abnormally enhancing bowel. Colonic diverticula without inflammation. Moderate to large volume of colonic stool. Normal appendix. PERITONEUM: No ascites or free air, no fluid collection. Peripancreatic edema compatible with acute pancreatitis. There is a new small fluid collection in the pancreatic body near the neck, measuring up to transaxial diameters, 20 mm in CC diameter (series 2, images 57-61), suggesting new small region of the walled-off necrosis or developing pseudocyst. There is interval decrease in size of a collection in the root of the mesentery measuring up to 4.3 x 2.1 cm in transaxial diameters and 2.5 cm in CC diameter. Sterility of fluid within these collections can not be determined by imaging. There is an apparent small filling defect in the right lower lobe posterior basal segmental artery (series 2, images 15-19), suspicious for pulmonary embolus. Confirmation and evaluation for additional possible clot burden in the pulmonary arterial system suggested with CT angiography of the chest for PE. The posterior wall of the gastric antrum in the medial pierre of the 1st and 2nd portions of the duodenal are adherent to the inflamed pancreatic head. Moderate to large volume of colonic stool, suggesting constipation. Hepatomegaly and hepatic steatosis. Foci of induration and subcutaneous air in the ventral abdominal wall, presumably related to medication injection and also present previously. Additional findings as discussed above. MACRO: None Signed by: Letha Jade 02/27/2024 9:21 PM Dictation workstation: [id number] All data reviewed by me independently Assessment/Plan Principal Problem: Acute pancreatitis without necrosis or infection, unspecified (HHS-HCC) 48-year-old female with history of Hypertension Hyperlipidemia Diabetes mellitus type 2 Pulmonary embolism Seizures CVA Obesity Depression Factor V Leyden deficiency Chronic pancreatitis Presented with acute pancreatitis Acute pulmonary embolism Plan Heparin drip Cardiopulmonary monitoring Clear liquids Supportive care Symptomatic management Resume home medicines as tolerated Avoid polypharmacy On clonidine point 2 mg p.o. daily Depakote 200 mg p.o. twice daily Follow vitals Fall, aspiration, seizure precautions Lasix 40 Mg p.o. daily Insulin sliding scale Metoprolol 25 mg p.o. daily for hypertension On Creon for chronic pancreatitis Antiemetics Pain control with Dilaudid IV as ordered On Valtrex for HSV prophylaxis Continue psych medicines including venlafaxine and Abilify Nutrition multivitamin Venous duplex ultrasound lower extremity to evaluate DVT Echocardiogram Follow clinical progress To start diet when able to tolerate Follow gastroenterology hematology outpatient DVT prophylaxis addressed per policy Further management as clinical course evolves Brea Nolen MD documented in this encounter [facility] Work Phone: 02-27-2024 Emergency department Note Patient is a 48-year-old female who presents to the emergency room for chief complaint of nausea vomiting and constipation along with generalized abdominal pain. She states that over the past 2 to 3 days she has had multiple episodes of nausea and vomiting and has had a very small amount of p.o. intake. She also states that she has been constipated. She states that about 1-1/2 to 2 months ago she was hospitalized for choledocholithiasis with an ERCP, later transferred and also had a pancreatic cyst drained. She states that she has chronic abdominal pain, sees pain management with infusions every 2-3 weeks. Review of Systems Constitutional: Negative for chills and fever. HENT: Negative for ear pain and sore throat. Eyes: Negative for pain and visual disturbance. Respiratory: Negative for cough and shortness of breath. Cardiovascular: Negative for chest pain and palpitations. Gastrointestinal: Positive for abdominal pain, nausea and vomiting. Genitourinary: Negative for dysuria and hematuria. Musculoskeletal: Negative for arthralgias and back pain. Skin: Negative for color change and rash. Neurological: Negative for seizures and syncope. All other systems reviewed and are negative. Physical Exam Vitals and nursing note reviewed. Constitutional: General: She is not in acute distress. Appearance: She is well-developed. HENT: Head: Normocephalic and atraumatic. Eyes: Conjunctiva/sclera: Conjunctivae normal. Cardiovascular: Rate and Rhythm: Normal rate and regular rhythm. Heart sounds: No murmur heard. Pulmonary: Effort: Pulmonary effort is normal. No respiratory distress. Breath sounds: Normal breath sounds. No stridor. No wheezing, rhonchi or rales. Chest: Chest wall: No tenderness. Abdominal: Palpations: Abdomen is soft. Tenderness: There is generalized abdominal tenderness. There is no right CVA tenderness, left CVA tenderness, guarding or rebound. Negative signs include Barrett's sign, Rovsing's sign, McBurney's sign, psoas sign and obturator sign. Hernia: No hernia is present. Musculoskeletal: General: No swelling. Cervical back: Neck supple. Skin: General: Skin is warm and dry. Capillary Refill: Capillary refill takes less than 2 seconds. Neurological: General: No focal deficit present. Mental Status: She is alert. Psychiatric: Mood and Affect: Mood normal. Labs Reviewed CBC WITH AUTO DIFFERENTIAL - Abnormal Result Value WBC 12.5 (*) nRBC 0.0 RBC 4.16 Hemoglobin 11.4 (*) Hematocrit 36.8 MCV 89 MCH 27.4 MCHC 31.0 (*) RDW 14.0 Platelets 327 Neutrophils % 68.7 Immature Granulocytes %, Automated 0.9 Lymphocytes % 23.6 Monocytes % 5.8 Eosinophils % 0.8 Basophils % 0.2 Neutrophils Absolute 8.58 (*) Immature Granulocytes Absolute, Automated 0.11 Lymphocytes Absolute 2.94 Monocytes Absolute 0.72 Eosinophils Absolute 0.10 Basophils Absolute 0.03 BASIC METABOLIC PANEL - Abnormal Glucose 200 (*) Sodium 134 (*) Potassium 4.1 Chloride 100 Bicarbonate 24 Anion Gap 14 Urea Nitrogen 15 Creatinine 0.95 eGFR 74 Calcium 8.8 HEPATIC FUNCTION PANEL - Abnormal Albumin 3.8 Bilirubin, Total 0.3 Bilirubin, Direct 0.1 Alkaline Phosphatase 147 (*) ALT 22 AST 21 Total Protein 7.7 URINALYSIS WITH REFLEX CULTURE AND MICROSCOPIC - Abnormal Color, Urine Light-Yellow Appearance, Urine Clear Specific [place], Urine 1.033 pH, Urine 6.5 Protein, Urine 30 (1+) (*) Glucose, Urine Normal Blood, Urine NEGATIVE Ketones, Urine TRACE (*) Bilirubin, Urine NEGATIVE Urobilinogen, Urine Normal Nitrite, Urine NEGATIVE Leukocyte Esterase, Urine NEGATIVE LIPASE - Normal Lipase 62 Narrative: Venipuncture immediately after or during the administration of Metamizole may lead to falsely low results. Testing should be performed immediately prior to Metamizole dosing. LACTATE - Normal Lactate 1.9 Narrative: Venipuncture immediately after or during the administration of Metamizole may lead to falsely low results. Testing should be performed immediately prior to Metamizole dosing. URINALYSIS WITH REFLEX CULTURE AND MICROSCOPIC Narrative: The following orders were created for panel order Urinalysis with Reflex Culture and Microscopic. Procedure Abnormality Status --------- ------ Urinalysis with Reflex C...[[id number]] Abnormal Final result Extra Urine Vaca Tube[[id number]] Please view results for these tests on the individual orders. EXTRA URINE VACA TUBE URINALYSIS MICROSCOPIC WITH REFLEX CULTURE WBC, Urine 1-5 RBC, Urine 1-2 Squamous Epithelial Cells, Urine 1-9 (SPARSE) Mucus, Urine FEW CT abdomen pelvis w IV contrast Final Result Peripancreatic edema compatible with acute pancreatitis. There is a new small fluid collection in the pancreatic body near the neck, measuring up to transaxial diameters, 20 mm in CC diameter (series 2, images 57-61), suggesting new small region of the walled-off necrosis or developing pseudocyst. There is interval decrease in size of a collection in the root of the mesentery measuring up to 4.3 x 2.1 cm in transaxial diameters and 2.5 cm in CC diameter. Sterility of fluid within these collections can not be determined by imaging. There is an apparent small filling defect in the right lower lobe posterior basal segmental artery (series 2, images 15-19), suspicious for pulmonary embolus. Confirmation and evaluation for additional possible clot burden in the pulmonary arterial system suggested with CT angiography of the chest for PE. The posterior wall of the gastric antrum in the medial pierre of the 1st and 2nd portions of the duodenal are adherent to the inflamed pancreatic head. Moderate to large volume of colonic stool, suggesting constipation. Hepatomegaly and hepatic steatosis. Foci of induration and subcutaneous air in the ventral abdominal wall, presumably related to medication injection and also present previously. Additional findings as discussed above. MACRO: None Signed by: Letha Jade 02/27/2024 9:21 PM Dictation workstation: [id number] CT angio chest for pulmonary embolism (Results Pending) Procedures Medical Decision Making Patient is a 48-year-old female with a history of necrotizing pancreatitis who presents to the emergency room with a chief complaint of nausea, vomiting and constipation with onset 2 to 3 days ago. Patient has a history of factor V Leiden mutation, is on Lovenox for history of bilateral DVT and PE along with nonocclusive portal vein thrombosis, diabetes, chronic pancreatitis, with history of pancreatic pseudocyst. CT scan of the abdomen pelvis shows that there findings consistent with acute pancreatitis and a new small fluid collection in the pancreatic body suggesting a new small region of walled off necrosis or developing pseudocyst. The radiologist also reported there is an apparent small filling defect in the right lower lobe suspicious for a PE and recommended CTA of the chest for PE. Is also noted that the gastric antrum the first and second portions of the duodenum are inherent to the inflamed pancreatic head and also findings consistent with constipation. Patient's white blood cell count is 12.5. Lactic is normal. Lipase is 62. Patient has been given analgesics for pain control. CT a of the chest is pending. Patient care transitioned to attending physician, Dr. Land at 2219 Amount and/or Complexity of Data Reviewed Labs: ordered. Decision-making details documented in ED Course. Radiology: ordered. Decision-making details documented in ED Course. Hemalatha Jacobson PA-C 02/27/242221 Emergency Medicine Transition of Care Note. I received Dorotheajack Rutledge in signout from Margie Jacobson. Please see the previous ED provider note for all HPI, PE and MDM up to the time of signout at 10 PM. This is in addition to the primary record. In brief Dorothea Rutledge is an 48 y.o. female presenting for Chief Complaint Patient presents with Vomiting Patient ambulatory to ED with c/o vomiting x 2 days. Reports 2-3 episodes of vomiting/day. C/o unable to keep down food or fluid. C/o fever 100.2 and constipation, last bowel movement this morning but hard stool. Hx necrotizing pancreatitis and bowel obstruction. Abdominal Pain At the time of signout we were awaiting: Final disposition multiple consultations and results of the CT angio of the chest CT angio chest for pulmonary embolism Final Result 1.Focal embolus right lower lobe medial pulmonary artery. No findings of heart strain. Critical results were discussed with.Dr. Miek Israel at 1:00 AM. 2.Fatty liver. Signed by Edwin Alejandro, DO CT abdomen pelvis w IV contrast Final Result Peripancreatic edema compatible with acute pancreatitis. There is a new small fluid collection in the pancreatic body near the neck, measuring up to transaxial diameters, 20 mm in CC diameter (series 2, images 57-61), suggesting new small region of the walled-off necrosis or developing pseudocyst. There is interval decrease in size of a collection in the root of the mesentery measuring up to 4.3 x 2.1 cm in transaxial diameters and 2.5 cm in CC diameter. Sterility of fluid within these collections can not be determined by imaging. There is an apparent small filling defect in the right lower lobe posterior basal segmental artery (series 2, images 15-19), suspicious for pulmonary embolus. Confirmation and evaluation for additional possible clot burden in the pulmonary arterial system suggested with CT angiography of the chest for PE. The posterior wall of the gastric antrum in the medial pierre of the 1st and 2nd portions of the duodenal are adherent to the inflamed pancreatic head. Moderate to large volume of colonic stool, suggesting constipation. Hepatomegaly and hepatic steatosis. Foci of induration and subcutaneous air in the ventral abdominal wall, presumably related to medication injection and also present previously. Additional findings as discussed above. MACRO: None Signed by: Letha Jade 02/27/2024 9:21 PM Dictation workstation: [id number] Diagnoses as of 02/28/24 0325 Pulmonary embolism on right (Multi) Idiopathic chronic pancreatitis (Multi) Medical Decision Making 48-year-old female will require admission for a couple of issues. #1 she has pancreatitis. She has a history of chronic pancreatitis. Today she does have a new finding of a new fluid collection which is 2 cm suggestive of either walled off necrosis or developing pseudocyst. I spoke with gastroenterology on-call Dr. Hicks who stated that as long as the fluid collection is less than 6 cm it is treated like a typical pancreatitis. She also has a history of factor V Leiden and has a new PE. She is asymptomatic with this new PE it was an incidental finding on CT scan. She is on Lovenox already 100 mg twice daily. I spoke to hematology on-call Dr. Purvis who also stated the patient can stay here and get started on heparin which was initiated in the emergency department. It turns out she did miss 1 dose of Lovenox about 3 to 4 days ago. Will admit to telemetry service. Final diagnoses: [I26.99] Pulmonary embolism on right (Multi) [K86.1] Idiopathic chronic pancreatitis (Multi) Procedure Procedures MD Mike Gay MD 02/28/24 0325 documented in this encounter [facility] Work Phone: 02-27-2024 Physician Emergency department Note Patient is a 48-year-old female who presents to the emergency room for chief complaint of nausea vomiting and constipation along with generalized abdominal pain. She states that over the past 2 to 3 days she has had multiple episodes of nausea and vomiting and has had a very small amount of p.o. intake. She also states that she has been constipated. She states that about 1-1/2 to 2 months ago she was hospitalized for choledocholithiasis with an ERCP, later transferred and also had a pancreatic cyst drained. She states that she has chronic abdominal pain, sees pain management with infusions every 2-3 weeks. Review of Systems Constitutional: Negative for chills and fever. HENT: Negative for ear pain and sore throat. Eyes: Negative for pain and visual disturbance. Respiratory: Negative for cough and shortness of breath. Cardiovascular: Negative for chest pain and palpitations. Gastrointestinal: Positive for abdominal pain, nausea and vomiting. Genitourinary: Negative for dysuria and hematuria. Musculoskeletal: Negative for arthralgias and back pain. Skin: Negative for color change and rash. Neurological: Negative for seizures and syncope. All other systems reviewed and are negative. Physical Exam Vitals and nursing note reviewed. Constitutional: General: She is not in acute distress. Appearance: She is well-developed. HENT: Head: Normocephalic and atraumatic. Eyes: Conjunctiva/sclera: Conjunctivae normal. Cardiovascular: Rate and Rhythm: Normal rate and regular rhythm. Heart sounds: No murmur heard. Pulmonary: Effort: Pulmonary effort is normal. No respiratory distress. Breath sounds: Normal breath sounds. No stridor. No wheezing, rhonchi or rales. Chest: Chest wall: No tenderness. Abdominal: Palpations: Abdomen is soft. Tenderness: There is generalized abdominal tenderness. There is no right CVA tenderness, left CVA tenderness, guarding or rebound. Negative signs include Barrett's sign, Rovsing's sign, McBurney's sign, psoas sign and obturator sign. Hernia: No hernia is present. Musculoskeletal: General: No swelling. Cervical back: Neck supple. Skin: General: Skin is warm and dry. Capillary Refill: Capillary refill takes less than 2 seconds. Neurological: General: No focal deficit present. Mental Status: She is alert. Psychiatric: Mood and Affect: Mood normal. Labs Reviewed CBC WITH AUTO DIFFERENTIAL - Abnormal Result Value WBC 12.5 (*) nRBC 0.0 RBC 4.16 Hemoglobin 11.4 (*) Hematocrit 36.8 MCV 89 MCH 27.4 MCHC 31.0 (*) RDW 14.0 Platelets 327 Neutrophils % 68.7 Immature Granulocytes %, Automated 0.9 Lymphocytes % 23.6 Monocytes % 5.8 Eosinophils % 0.8 Basophils % 0.2 Neutrophils Absolute 8.58 (*) Immature Granulocytes Absolute, Automated 0.11 Lymphocytes Absolute 2.94 Monocytes Absolute 0.72 Eosinophils Absolute 0.10 Basophils Absolute 0.03 BASIC METABOLIC PANEL - Abnormal Glucose 200 (*) Sodium 134 (*) Potassium 4.1 Chloride 100 Bicarbonate 24 Anion Gap 14 Urea Nitrogen 15 Creatinine 0.95 eGFR 74 Calcium 8.8 HEPATIC FUNCTION PANEL - Abnormal Albumin 3.8 Bilirubin, Total 0.3 Bilirubin, Direct 0.1 Alkaline Phosphatase 147 (*) ALT 22 AST 21 Total Protein 7.7 URINALYSIS WITH REFLEX CULTURE AND MICROSCOPIC - Abnormal Color, Urine Light-Yellow Appearance, Urine Clear Specific [place], Urine 1.033 pH, Urine 6.5 Protein, Urine 30 (1+) (*) Glucose, Urine Normal Blood, Urine NEGATIVE Ketones, Urine TRACE (*) Bilirubin, Urine NEGATIVE Urobilinogen, Urine Normal Nitrite, Urine NEGATIVE Leukocyte Esterase, Urine NEGATIVE LIPASE - Normal Lipase 62 Narrative: Venipuncture immediately after or during the administration of Metamizole may lead to falsely low results. Testing should be performed immediately prior to Metamizole dosing. LACTATE - Normal Lactate 1.9 Narrative: Venipuncture immediately after or during the administration of Metamizole may lead to falsely low results. Testing should be performed immediately prior to Metamizole dosing. URINALYSIS WITH REFLEX CULTURE AND MICROSCOPIC Narrative: The following orders were created for panel order Urinalysis with Reflex Culture and Microscopic. Procedure Abnormality Status --------- ------ Urinalysis with Reflex C...[[id number]] Abnormal Final result Extra Urine Vaca Tube[[id number]] Please view results for these tests on the individual orders. EXTRA URINE VACA TUBE URINALYSIS MICROSCOPIC WITH REFLEX CULTURE WBC, Urine 1-5 RBC, Urine 1-2 Squamous Epithelial Cells, Urine 1-9 (SPARSE) Mucus, Urine FEW CT abdomen pelvis w IV contrast Final Result Peripancreatic edema compatible with acute pancreatitis. There is a new small fluid collection in the pancreatic body near the neck, measuring up to transaxial diameters, 20 mm in CC diameter (series 2, images 57-61), suggesting new small region of the walled-off necrosis or developing pseudocyst. There is interval decrease in size of a collection in the root of the mesentery measuring up to 4.3 x 2.1 cm in transaxial diameters and 2.5 cm in CC diameter. Sterility of fluid within these collections can not be determined by imaging. There is an apparent small filling defect in the right lower lobe posterior basal segmental artery (series 2, images 15-19), suspicious for pulmonary embolus. Confirmation and evaluation for additional possible clot burden in the pulmonary arterial system suggested with CT angiography of the chest for PE. The posterior wall of the gastric antrum in the medial pierre of the 1st and 2nd portions of the duodenal are adherent to the inflamed pancreatic head. Moderate to large volume of colonic stool, suggesting constipation. Hepatomegaly and hepatic steatosis. Foci of induration and subcutaneous air in the ventral abdominal wall, presumably related to medication injection and also present previously. Additional findings as discussed above. MACRO: None Signed by: Letha Jade 02/27/2024 9:21 PM Dictation workstation: [id number] CT angio chest for pulmonary embolism (Results Pending) Procedures Medical Decision Making Patient is a 48-year-old female with a history of necrotizing pancreatitis who presents to the emergency room with a chief complaint of nausea, vomiting and constipation with onset 2 to 3 days ago. Patient has a history of factor V Leiden mutation, is on Lovenox for history of bilateral DVT and PE along with nonocclusive portal vein thrombosis, diabetes, chronic pancreatitis, with history of pancreatic pseudocyst. CT scan of the abdomen pelvis shows that there findings consistent with acute pancreatitis and a new small fluid collection in the pancreatic body suggesting a new small region of walled off necrosis or developing pseudocyst. The radiologist also reported there is an apparent small filling defect in the right lower lobe suspicious for a PE and recommended CTA of the chest for PE. Is also noted that the gastric antrum the first and second portions of the duodenum are inherent to the inflamed pancreatic head and also findings consistent with constipation. Patient's white blood cell count is 12.5. Lactic is normal. Lipase is 62. Patient has been given analgesics for pain control. CT a of the chest is pending. Patient care transitioned to attending physician, Dr. Land at 2219 Amount and/or Complexity of Data Reviewed Labs: ordered. Decision-making details documented in ED Course. Radiology: ordered. Decision-making details documented in ED Course. Hemalatha Jacobson PA-C 02/27/242221 [facility] Work Phone: 02-27-2024 Physician Emergency department Note Emergency Medicine Transition of Care Note. I received Dorothea Rutledge in signout from Margie Jacobson. Please see the previous ED provider note for all HPI, PE and MDM up to the time of signout at 10 PM. This is in addition to the primary record. In brief Dorothea Rutledge is an 48 y.o. female presenting for Chief Complaint Patient presents with Vomiting Patient ambulatory to ED with c/o vomiting x 2 days. Reports 2-3 episodes of vomiting/day. C/o unable to keep down food or fluid. C/o fever 100.2 and constipation, last bowel movement this morning but hard stool. Hx necrotizing pancreatitis and bowel obstruction. Abdominal Pain At the time of signout we were awaiting: Final disposition multiple consultations and results of the CT angio of the chest CT angio chest for pulmonary embolism Final Result 1.Focal embolus right lower lobe medial pulmonary artery. No findings of heart strain. Critical results were discussed with.Dr. Mike Israel at 1:00 AM. 2.Fatty liver. Signed by Edwin Alejandro, DO CT abdomen pelvis w IV contrast Final Result Peripancreatic edema compatible with acute pancreatitis. There is a new small fluid collection in the pancreatic body near the neck, measuring up to transaxial diameters, 20 mm in CC diameter (series 2, images 57-61), suggesting new small region of the walled-off necrosis or developing pseudocyst. There is interval decrease in size of a collection in the root of the mesentery measuring up to 4.3 x 2.1 cm in transaxial diameters and 2.5 cm in CC diameter. Sterility of fluid within these collections can not be determined by imaging. There is an apparent small filling defect in the right lower lobe posterior basal segmental artery (series 2, images 15-19), suspicious for pulmonary embolus. Confirmation and evaluation for additional possible clot burden in the pulmonary arterial system suggested with CT angiography of the chest for PE. The posterior wall of the gastric antrum in the medial pierre of the 1st and 2nd portions of the duodenal are adherent to the inflamed pancreatic head. Moderate to large volume of colonic stool, suggesting constipation. Hepatomegaly and hepatic steatosis. Foci of induration and subcutaneous air in the ventral abdominal wall, presumably related to medication injection and also present previously. Additional findings as discussed above. MACRO: None Signed by: Letha Jade 02/27/2024 9:21 PM Dictation workstation: [id number] Diagnoses as of 02/28/24 0325 Pulmonary embolism on right (Multi) Idiopathic chronic pancreatitis (Multi) Medical Decision Making 48-year-old female will require admission for a couple of issues. #1 she has pancreatitis. She has a history of chronic pancreatitis. Today she does have a new finding of a new fluid collection which is 2 cm suggestive of either walled off necrosis or developing pseudocyst. I spoke with gastroenterology on-call Dr. Hicks who stated that as long as the fluid collection is less than 6 cm it is treated like a typical pancreatitis. She also has a history of factor V Leiden and has a new PE. She is asymptomatic with this new PE it was an incidental finding on CT scan. She is on Lovenox already 100 mg twice daily. I spoke to hematology on-call Dr. Purvis who also stated the patient can stay here and get started on heparin which was initiated in the emergency department. It turns out she did miss 1 dose of Lovenox about 3 to 4 days ago. Will admit to telemetry service. Final diagnoses: [I26.99] Pulmonary embolism on right (Multi) [K86.1] Idiopathic chronic pancreatitis (Multi) Procedure Procedures MD Mike Gay MD 02/28/24 0325 [facility] Work Phone: 02-02-2024 History of Present illness Narrative SUBJECTIVE: This is 48 y.o. 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 The patient stated that she used to be a binge drinker till 2013 when she stopped and has been sober since. who is here for follow-up stating that she is doing great on her IV infusion therapy she gets at least 60% improvement in her pain and function. The patient was admitted recently and she had ERCP which is now she is doing very well she is still on her Xarelto because of her blood clots. She still gets nausea from her IV infusion and also from her nasal ketamine but it goes away in an hour. 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 The patient stated that she used to be a binge drinker till 2013 when she stopped and she continued to have pain from her chronic pancreatitis that it is episodic and happens once every 2 to 4 weeks and last for a day to day and a half. The pain is tolerable in between those attacks. Today was a good day for her but palpating her abdomen resulted in significant tenderness over the right upper quadrant area the patient received IV infusion therapy and had a port implanted by radiology for IV access who is here for follow-up stating that she is doing most of the time very well with IV infusion therapy once every 2 weeks. She will get recently another acute pancreatic attack she is being admitted to the hospital. She has gained a lot of fluid and weight from her insulin treatment as well. She had to have her Mediport replaced again because the previous one was flipped. She is here to continue with her IV infusion therapy. We renewed her therapy order and signed her consent. I gave her information about the clinic ketamine infusion as well. Procedures: IV infusion therapy the patient has had a 60% improvement in pain and function Portions of record reviewed for pertinent issues: active problem list, medication list, allergies, family history, social history, notes from last encounter, encounters, lab results, imaging and other available records. I have personally reviewed the OARRS report for this patient. This report is scanned into the electronic medical record. I have considered the risks of abuse, dependence, addiction and diversion. 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 Redemonstrated sequelae of necrotizing pancreatitis. Though there is significant improvement in the lesser sac fat stranding, gastrohepatic stranding has minimally increased as described above raising a possibility of a acute episode of pancreatitis, correlation with the serum amylase and lipase recommended 2. Increased size of intra and peripancreatic fluid collections, consistent with walled-off necrosis. 3. Hepatomegaly with heterogenously hypodense liver parenchyma compatible with steatosis. 4. Cholecystectomy. Mild common bile duct dilation. I personally reviewed the images/study and I agree with the findings as stated. This study was interpreted at [place], [place]. MACRO: None Electronically signed by: CARISSA BUI 05/12/23 23:23 Review of Systems HENT: Negative. Eyes: Negative. Respiratory: Negative. Cardiovascular: Negative. Gastrointestinal: Positive for abdominal pain and nausea. Endocrine: Negative. Genitourinary: Negative. Musculoskeletal: Positive for myalgias. Skin: Negative. Hematological: Negative. Psychiatric/Behavioral: Negative. Physical Exam Constitutional: Appearance: Normal appearance. Neurological: Mental Status: She is alert. Psychiatric: Mood and Affect: Mood normal. Behavior: Behavior normal. Plan At least 50% of the visit was involved in the discussion of the options for treatment. We discussed exercises, medication, interventional therapies and surgery. Healthy life style is essential with patient hard work to achieve the wellness. In addition; discussion with the patient and/or family about any of the diagnostic results, impressions and/or recommended diagnostic studies, prognosis, risks and benefits of treatment options, instructions for treatment and/or follow-up, importance of compliance with chosen treatment options, risk-factor reduction, and patient/family education. Pool therapy, walking in the pool, at least 3x per week for 30 minutes Continue self-directed physical therapy Continue IV infusion therapy Healthy lifestyle and anti-inflammatory diet in addition to weight control discussed with the patient Alternative chronic pain therapies was discussed, encouraged and information was handed Return to Clinic 3 months *Please note this report has been produced using speech recognition software and may contain errors related to that system including grammar, punctuation and spelling as well as words and phrases that may be inappropriate. If there are questions or concerns, please feel free to contact me to clarify. Tianna Rasmussen MD This is 48 y.o. female with who has been treated for pancreatic pain . Pain is 60 % better,lasting almost two weeks . The pain is described as achiness and stabbing and is relieved by IV infusions . Here for follow-up , via virtual visit . Chief Complaint Patient presents with Follow-up IV infusion Patient states that this past Tuesday01/28/2024 she had ERCP done . Pain Therapies: IV infusions documented in this encounter [facility] Work Phone: 12-08-2023 Nurse Note 12/08/2023 Nursing Note: Patient discharged to home with Meds to bed from [facility] pharmacy. RN discussed discharge instructions with Patient. Patient verbalized understanding and copy of After Visit summary given to patient [facility] 12-08-2023 Nurse Note 12/08/2023 Nursing Note: Patient discharged to home with Meds to bed from [facility] pharmacy. RN discussed discharge instructions with Patient. Patient verbalized understanding and copy of After Visit summary given to patient documented in this encounter [facility] Work Phone: 12-08-2023 Plan of care note The patient's goals for the shift include being discharged home. The clinical goals for the shift include Pt will rate her pain a 4/10 or less by the end of this shift. Over the shift, the patient did make progress toward the following goals. Bher pain decreased to a 4/10 with PRN pain medication and she wad medically cleared for discharge. All belongings packed by patient and taken for discharge home. [facility] 12-08-2023 Miscellaneous Notes The patient's goals for the shift include being discharged home. The clinical goals for the shift include Pt will rate her pain a 4/10 or less by the end of this shift. Over the shift, the patient did make progress toward the following goals. Bher pain decreased to a 4/10 with PRN pain medication and she wad medically cleared for discharge. All belongings packed by patient and taken for discharge home. Dorothea Rutledge is a 47 y.o. female with PMHx Factor V Leiden mutation on Xarelto, HTN, T2DM, chronic pancreatitis (on ketamine 100mg/lidocaine 40mg inhalation) c/b necrotizing pancreatitis and pancreatic pseudocyst, and opioid dependence who presents for planned stent removal and cyst reassessment s/p EUS-guided cystogastrostomy on 11/14. Pt presented 12/04 for procedure however was unaware of 48hr Xarelto washout period, therefore procedure cancelled and patient was admitted. She underwent CT A/P with IV contrast: Status post cyst gastrostomy with near interval resolution of the previously noted pseudocyst. Nonocclusive portal vein thrombus. For her new nonocclusive portal vein thrombus, Vascular Medicine was consulted out of concern for Xarelto failure. As her Xarelto dose was for secondary prophylaxis, it was not deemed treatment failure, however given her hx of chronic pancreatitis, her malabsorption was thought to impact absorption and efficacy of Xarelto. She was recommended to start on Lovenox, which was started post EGD on 12/06. EGD 12/06 with LAMS stent was visualized in the lesser curve of the stomach, which was removed. Cavity was entered and PFC was largely resolved with nice pink granulation tissue and minimal cavity. No stent was replaced. There was fresh blood oozing after procedure. She also underwent LE DVT US per Vascular Medicine recommendation, without any thrombus seen though chronic changes visualized in the popliteal vein, and the right PTV and peroneal veins were visualized in segments due to swelling, therefore can no rule out thrombus in non-visualized areas. While she was admitted, her pain was managed with IV dilaudid and scheduled tylenol, and nausea with phenergan and zofran, and she tolerated her low fat diet well without issue at time of discharge. Additionally, she became tachycardic during admission with ECG unremarkable, for which her home metoprolol was restarted as it had been previously discontinued at her previous admission. She was discharged with Vascular Medicine and GI follow up. Problem: Pain Goal: My pain/discomfort is manageable Outcome: Progressing Problem: Safety Goal: Patient will be injury free during hospitalization Outcome: Progressing Goal: I will remain free of falls Outcome: Progressing The patient's goals for the shift include The clinical goals for the shift include patient will rate pain at or below a level of 4 out of 10 by the end of this shift. Over the shift, the patient did not make progress toward the following goals. Abdomen Patient down to GI lab today for procedure. Patient c/o elevated pain and nausea this shift; PRN zofran ordered and patient medicated per EMR for pain. No acute events noted. Patient pending discharge most likely tomorrow. The clinical goals for the shift include patient will rate pain at or below a level of 4 out of 10 by the end of this shift. Goal not met. Patient c/o elevated pain; medicated per EMR. Patient plan of care ongoing. Caroline SANCHEZ, RN, CMSRN Problem: Fall/Injury Goal: Not fall by end of shift Outcome: Progressing Goal: Be free from injury by end of the shift Outcome: Progressing Goal: Verbalize understanding of personal risk factors for fall in the hospital Outcome: Progressing Goal: Verbalize understanding of risk factor reduction measures to prevent injury from fall in the home Outcome: Progressing Goal: Use assistive devices by end of the shift Outcome: Progressing Goal: Pace activities to prevent fatigue by end of the shift Outcome: Progressing Problem: Pain Goal: My pain/discomfort is manageable Outcome: Progressing Problem: Safety Goal: Patient will be injury free during hospitalization Outcome: Progressing Goal: I will remain free of falls Outcome: Progressing Problem: Daily Care Goal: Daily care needs are met Outcome: Progressing Problem: Psychosocial Needs Goal: Demonstrates ability to cope with hospitalization/illness Outcome: Progressing Goal: Collaborate with me, my family, and caregiver to identify my specific goals Outcome: Progressing Problem: Discharge Barriers Goal: My discharge needs are met Outcome: Progressing Problem: Pain Goal: Takes deep breaths with improved pain control throughout the shift Outcome: Progressing Goal: Turns in bed with improved pain control throughout the shift Outcome: Progressing Goal: Walks with improved pain control throughout the shift Outcome: Progressing Goal: Performs ADL's with improved pain control throughout shift Outcome: Progressing Goal: Participates in PT with improved pain control throughout the shift Outcome: Progressing Goal: Free from opioid side effects throughout the shift Outcome: Progressing Goal: Free from acute confusion related to pain meds throughout the shift Outcome: Progressing Problem: Pain - Adult Goal: Verbalizes/displays adequate comfort level or baseline comfort level Outcome: Progressing Problem: Safety - Adult Goal: Free from fall injury Outcome: Progressing Problem: Discharge Planning Goal: Discharge to home or other facility with appropriate resources Outcome: Progressing Problem: Chronic Conditions and Co-morbidities Goal: Patient's chronic conditions and co-morbidity symptoms are monitored and maintained or improved Outcome: Progressing Problem: Diabetes Goal: Achieve decreasing blood glucose levels by end of shift Outcome: Progressing Goal: Increase stability of blood glucose readings by end of shift Outcome: Progressing Goal: Decrease in ketones present in urine by end of shift Outcome: Progressing Goal: Maintain electrolyte levels within acceptable range throughout shift Outcome: Progressing Goal: Maintain glucose levels >70mg/dl to <250mg/dl throughout shift Outcome: Progressing Goal: No changes in neurological exam by end of shift Outcome: Progressing Goal: Learn about and adhere to nutrition recommendations by end of shift Outcome: Progressing Goal: Vital signs within normal range for age by end of shift Outcome: Progressing Goal: Increase self care and/or family involovement by end of shift Outcome: Progressing Goal: Receive DSME education by end of shift Outcome: Progressing Problem: Fall/Injury Goal: Not fall by end of shift Outcome: Progressing Goal: Be free from injury by end of the shift Outcome: Progressing Goal: Verbalize understanding of personal risk factors for fall in the hospital Outcome: Progressing Goal: Verbalize understanding of risk factor reduction measures to prevent injury from fall in the home Outcome: Progressing Goal: Use assistive devices by end of the shift Outcome: Progressing Goal: Pace activities to prevent fatigue by end of the shift Outcome: Progressing The patient's goals for the shift include The clinical goals for the shift include Pt will maintain a tolerable pain level this shift Over the shift, the patient did not make progress toward the following goals. Barriers to progression include . Recommendations to address these barriers include . Problem: Pain Goal: My pain/discomfort is manageable Outcome: Progressing The patient's goals for the shift include The clinical goals for the shift include patient will rate pain at or below a level of 4 out of 10 by the end of this shift. Over the shift, the patient did not make progress toward the following goals. Patient admitted to [place] [id number] from the endoscopy suite. Patient c/o elevated pain to the abdomen this shift as well as a headache; medicated per EMR. Mediport placed; awaiting cath-flow due to lack of blood return. Patient NPO at midnight for procedure. The clinical goals for the shift include patient will rate pain at or below a level of 4 out of 10 by the end of this shift. Goal not met. Patient medicated for pain via EMR. Patient plan of care ongoing. Caroline SANCHEZ, RN, CMSRN Problem: Fall/Injury Goal: Not fall by end of shift Outcome: Progressing Goal: Be free from injury by end of the shift Outcome: Progressing Goal: Verbalize understanding of personal risk factors for fall in the hospital Outcome: Progressing Goal: Verbalize understanding of risk factor reduction measures to prevent injury from fall in the home Outcome: Progressing Goal: Use assistive devices by end of the shift Outcome: Progressing Goal: Pace activities to prevent fatigue by end of the shift Outcome: Progressing Problem: Pain Goal: My pain/discomfort is manageable Outcome: Progressing Problem: Safety Goal: Patient will be injury free during hospitalization Outcome: Progressing Goal: I will remain free of falls Outcome: Progressing Problem: Daily Care Goal: Daily care needs are met Outcome: Progressing Problem: Psychosocial Needs Goal: Demonstrates ability to cope with hospitalization/illness Outcome: Progressing Goal: Collaborate with me, my family, and caregiver to identify my specific goals Outcome: Progressing Problem: Discharge Barriers Goal: My discharge needs are met Outcome: Progressing Problem: Pain Goal: Takes deep breaths with improved pain control throughout the shift Outcome: Progressing Goal: Turns in bed with improved pain control throughout the shift Outcome: Progressing Goal: Walks with improved pain control throughout the shift Outcome: Progressing Goal: Performs ADL's with improved pain control throughout shift Outcome: Progressing Goal: Participates in PT with improved pain control throughout the shift Outcome: Progressing Goal: Free from opioid side effects throughout the shift Outcome: Progressing Goal: Free from acute confusion related to pain meds throughout the shift Outcome: Progressing SEE EXCELLENT GOSPEL SINGER'S NOTE FOR FURTHER DETAILS FOR H&P History Of Present Illness Dorothea Rutledge is a 47 y.o. female with PMH significant for factor V Leiden mutation on Xarelto, HTN, T2DM, chronic pancreatitis (on Ketamine 30mg/Propofol 100mg infusions last dose 11/09/2023; now on ketamine inhaler), necrotizing pancreatitis, pancreatic pseudocyst, and opioid dependence who presents for planned stent removal and cyst reassessment s/p EUS-guided cystogastrostomy on 11/14. Pt was recently admitted on 11/10-11/15 for epigastric pain (lipase 104). Pt with recent imaging via MRI/MRCP on 11/09/23 suggestive of enlarging pancreatic pseudocyst (10 x 6.4 cm) involving the head/body concerning for possible symptomatic cyst. Sent by Dr Hicks. Pt underwent an EUS-guided cystogastrostomy on 11/14 which showed a large round cyst measuring approximately 100 mm x 80 mm with debris present, was found in the area of the body of the pancreas. Therapeutic drainage performed from the gastric body using hot lumen apposing metal stent measuring 20 mm x 10 mm. Post-drainage, one 7 Fr x 4 cm double pigtail plastic stent was placed through the lumen of the prior stent. Pt was planned for EGD today (2-3 weeks post-procedure) for stent removal and cyst reassessment, however pt did not complete 48 hr Xarelto washout period. Pt denies any N/V, fever, chills, chest pain. Endorsing epigastric tenderness which she states is normal for her. 12 point ROS unless stated above. On arrival to [facility]: There were no vitals taken for this visit. Labs: pending GI hx: MRCP (10/12/2023): IMPRESSION: Increase in size of pancreatic cyst involving the head/body, suggestive of a pseudocyst in a patient with prior pancreatitis. There is main pancreatic ductal dilatation in the tail likely postobstructive in nature, with parenchymal atrophy. Hepatomegaly and hepatic steatosis. Stable subcentimeter enhancing lesion segment VIII of the liver. EUS 11/14: Impression The esophagus appeared normal. Edematous and erythematous mucosa in the stomach. No significant extrinsic compression noted. The duodenal bulb, 1st part of the duodenum, 2nd part of the duodenum and 3rd part of the duodenum appeared normal. No stenosis visualized. A large round cyst measuring approximately 100 mm x 80 mm with debris present, was found in the area of the body of the pancreas. Therapeutic drainage performed from the gastric body using hot lumen apposing metal stent measuring 20 mm x 10 mm. Post-drainage, one 7 Fr x 4 cm double pigtail plastic stent was placed through the lumen of the prior stent. Physical Exam General: awake, alert, conversant, NAD Cardiac: RRR, normal S1, S2, no M/R/G Pulm: CTAB, normal respiratory effort, no inc WOB Abdomen: soft, ND, tender in epigastrium, no involuntary guarding or rebound tenderness EXT: no peripheral edema, no asymmetry noted MSK: no focal joint swelling noted Neuro: AOx3, able to follow commands, no gross FND Psych: coherent thought process, appropriate mood and affect Assessment and Plan: Assessment/Plan Principal Problem: Generalized abdominal pain Dorothea Rutledge is a 47 y.o. female with PMH significant for factor V Leiden mutation on Xarelto, HTN, T2DM, chronic pancreatitis (on Ketamine 30mg/Propofol 100mg infusions last dose 11/09/2023; now on ketamine inhaler), necrotizing pancreatitis, pancreatic pseudocyst, and opioid dependence who presents for planned stent removal and cyst reassessment s/p EUS-guided cystogastrostomy on 11/14. Pt did not completed 48 hr Xarelto washout period, therefore procedure cancelled for today. Will plan to continue holding Xarelto tonight and plan for procedure tomorrow instead. #Pancreatic pseudocyst #Acute on Chronic pancreatitis #Hx of Factor V Leiden mutation and recurrent DVT :: etiology thought to be idiopathic vs EtOH related, did have elevated IgG4 levels but on EUS not consistent w/ AIP ::s/p EUS-guided cystogastrostomy on 11/14 with placement of one 7 Fr x 4 cm double pigtail plastic stent ::last dose of Xarelto: 12/02 at 10PM -c/w holding Xarelto -start heparin gtt for tonight, will plan to hold at 4AM preprocedure -NPO at [place] for planned stent removal and cyst reassessment -c/w low fat diet and Creon -can likely discharge after procedure F: PRN E: PRN N: low fat diet GI ppx: none DVT ppx: heparin gtt Code status: Full code NOK: Lizz Dockery - [phone] Johan Burton MD documented in this encounter [facility] Work Phone: 12-08-2023 Hospital course Narrative Discharge Diagnosis Necrotizing Pancreatitis Issues Requiring Follow-Up - Vascular Medicine follow up for her nonocclusive portal vein thrombus and Lovenox management Test Results Pending At Discharge None Hospital Course Dorothea Rutledge is a 47 y.o. female with PMHx Factor V Leiden mutation on Xarelto, HTN, T2DM, chronic pancreatitis (on ketamine 100mg/lidocaine 40mg inhalation) c/b necrotizing pancreatitis and pancreatic pseudocyst, and opioid dependence who presents for planned stent removal and cyst reassessment s/p EUS-guided cystogastrostomy on 11/14. Pt presented 12/04 for procedure however was unaware of 48hr Xarelto washout period, therefore procedure cancelled and patient was admitted. She underwent CT A/P with IV contrast: Status post cyst gastrostomy with near interval resolution of the previously noted pseudocyst. Nonocclusive portal vein thrombus. For her new nonocclusive portal vein thrombus, Vascular Medicine was consulted out of concern for Xarelto failure. As her Xarelto dose was for secondary prophylaxis, it was not deemed treatment failure, however given her hx of chronic pancreatitis, her malabsorption was thought to impact absorption and efficacy of Xarelto. She was recommended to start on Lovenox, which was started post EGD on 12/06. EGD 12/06 with LAMS stent was visualized in the lesser curve of the stomach, which was removed. Cavity was entered and PFC was largely resolved with nice pink granulation tissue and minimal cavity. No stent was replaced. There was fresh blood oozing after procedure. She also underwent LE DVT US per Vascular Medicine recommendation, without any thrombus seen though chronic changes visualized in the popliteal vein, and the right PTV and peroneal veins were visualized in segments due to swelling, therefore can no rule out thrombus in non-visualized areas. While she was admitted, her pain was managed with IV dilaudid and scheduled tylenol, and nausea with phenergan and zofran, and she tolerated her low fat diet well without issue at time of discharge. Additionally, she became tachycardic during admission with ECG unremarkable, for which her home metoprolol was restarted as it had been previously discontinued at her previous admission. She was discharged with Vascular Medicine and GI follow up. Visit Vitals BP 140/86 (BP Location: Right arm, Patient Position: Lying) Pulse 99 Temp 35.9 C (96.6 F) (Temporal) Resp 20 Ht 1.6 m (5' 2.99 ) Wt 104 kg (230 lb) SpO2 95% BMI 40.75 kg/m Physical Exam: Constitutional: No acute distress, resting comfortably in bed, cooperative HEENT: Normocephalic, atraumatic, PERRLA, EOMI, moist mucous membranes, no pharyngeal erythema Cardiovascular: Tachycardic, normal rhythm, normal S1/S2, no murmurs noted Pulmonary: Clear to auscultation b/l, no wheezes/crackles/rhonchi, no increased work of breathing GI: Soft, tender to palpation epigastric, improved from day prior, no distension, rebound tenderness, or guarding Lower extremities: Warm and well perfused Neuro: A&O x3, able to move all 4 extremities spontaneously Psych: Appropriate mood and affect Home Medications Medication List START taking these medications enoxaparin 100 mg/mL syringe; Commonly known as: Lovenox; Inject 1 mL (100 mg) under the skin 2 times a day. metoprolol succinate XL 25 mg 24 hr tablet; Commonly known as: Toprol-XL; Take 1 tablet (25 mg) by mouth once daily. Do not crush or chew. oxyCODONE 5 mg immediate release tablet; Commonly known as: Roxicodone; Take 1 tablet (5 mg) by mouth every 8 hours if needed for severe pain (7 - 10) for up to 5 days. CONTINUE taking these medications ARIPiprazole 10 mg tablet; Commonly known as: Abilify ascorbic acid 1,000 mg tablet; Commonly known as: Vitamin C benztropine 0.5 mg tablet; Commonly known as: Cogentin cholecalciferol 50,000 unit capsule; Commonly known as: Vitamin D-3 Creon 12,000-38,000 -60,000 unit capsule; Generic drug: pancrelipase (Kui-Zmow-Ymit); Take 2 capsules by mouth 3 times a day with meals. divalproex 250 mg EC tablet; Commonly known as: Depakote fenofibrate 145 mg tablet; Commonly known as: Tricor furosemide 80 mg tablet; Commonly known as: Lasix glipiZIDE XL 10 mg 24 hr tablet; Commonly known as: Glucotrol XL ketamine (bulk) 100 % powder; Ketamine 100 mg/mL + lidocaine 40 mg/mL 1 puff 4 times daily as needed, DSP#20 mL x 5 refills melatonin 3 mg capsule NovoLOG Mix 70-30 U-100 Insuln 100 unit/mL (70-30) injection; Generic drug: insulin asp prt-insulin aspart nystatin 100,000 unit/gram powder; Commonly known as: Mycostatin omeprazole [address] capsule; Commonly known as: PriLOSEC ondansetron ODT 8 mg disintegrating tablet; Commonly known as: Zofran-ODT; DISSOLVE 1 TABLET IN MOUTH THREE TIMES A DAY NEEDED FOR NAUSEA Pain Relief (acetaminophen) 325 mg tablet; Generic drug: acetaminophen; TAKE 2 TABLETS BY MOUTH EVERY 8 HOURS potassium chloride ER 10 mEq ER capsule; Commonly known as: Micro-K promethazine 25 mg tablet; Commonly known as: Phenergan; Take 1 tablet (25 mg) by mouth every 6 hours if needed for nausea or vomiting. valACYclovir 500 mg tablet; Commonly known as: Valtrex * venlafaxine XR 75 mg 24 hr capsule; Commonly known as: Effexor-XR * venlafaxine XR 150 mg 24 hr capsule; Commonly known as: Effexor-XR * This list has 2 medication(s) that are the same as other medications prescribed for you. Read the directions carefully, and ask your doctor or other care provider to review them with you. STOP taking these medications lacosamide 100 mg tablet; Commonly known as: Vimpat Xarelto 10 mg tablet; Generic drug: rivaroxaban Outpatient Follow-Up Future Appointments Date Time Provider Department Center 12/21/2023 8:00 AM INF 04 PARM OPCTR [facility] 01/04/2024 8:00 AM INF 03 PARM OPCTR [facility] 01/04/2024 11:00 AM Colton Hicks MD [id number] [facility] 01/04/2024 1:00 PM Sun Galloway MD [id number] [facility] 01/18/2024 8:30 AM INF 02 PARM OPCTR [facility] 02/01/2024 8:30 AM INF 01 PARM OPCTR [facility] 02/15/2024 8:30 AM INF 02 PARM [facility]CTR [facility] [place] Agrawal MD documented in this encounter [facility] Work Phone: 12-08-2023 Hospital Discharge instructions Andreea Gandhi MD - 12/08/2023 12:21 PM EDT Discharge Instructions Dear Dorothea Rutledge, You were admitted to [facility] as you were unable to have your scheduled EGD due to your blood thinner medication. While you were admitted, you were able to get this EGD after a few days, which showed that your pancreas has been healing well. You also had a CT scan, which showed a small blood clot in one of the veins of your liver, though it was not big enough to block the vein. We asked the Vascular Medicine team to come see you, and they recommended you change your blood thinner medication, which is detailed below. They will also see you in clinic, with the appointment already scheduled. You also had an ultrasound of your legs, which showed some chronic changes in one of veins of your leg, but no blood clots were seen. After your pain and nausea were controlled and you were able to eat, we felt reassured that you were ready to go home. Medication changes: Please STOP taking your Xarelto, and instead START taking Lovenox twice a day We are also prescribing Oxycodone, please only use this for breakthrough pain that your home Ketamine inhaler is not helping with. Please continue to take your Metoprolol at home Appointments/follow-up: We have requested an automated system to call you to schedule, however if you do not hear from them in next few days, please call [facility] appointment line: [phone] or You have an appointment with Dr. Galloway (Vascular Medicine) on 01/03 You have an appointment with Dr. Hicks (GI) on 01/03 It was a pleasure taking care of you, Your Care Team documented in this encounter [facility] Work Phone: 12-08-2023 Hospital Note Formatting of t his note might be different from the original. Dorothea Rutledge is a 47 y.o. female with PMHx Factor V Leiden mutation on Xarelto, HTN, T2DM, chronic pancreatitis (on ketamine 100mg/lidocaine 40mg inhalation) c/b necrotizing pancreatitis and pancreatic pseudocyst, and opioid dependence who presents for planned stent removal and cyst reassessment s/p EUS-guided cystogastrostomy on 11/14. Pt presented 12/04 for procedure however was unaware of 48hr Xarelto washout period, therefore procedure cancelled and patient was admitted. She underwent CT A/P with IV contrast: Status post cyst gastrostomy with near interval resolution of the previously noted pseudocyst. Nonocclusive portal vein thrombus. For her new nonocclusive portal vein thrombus, Vascular Medicine was consulted out of concern for Xarelto failure. As her Xarelto dose was for secondary prophylaxis, it was not deemed treatment failure, however given her hx of chronic pancreatitis, her malabsorption was thought to impact absorption and efficacy of Xarelto. She was recommended to start on Lovenox, which was started post EGD on 12/06. EGD 12/06 with LAMS stent was visualized in the lesser curve of the stomach, which was removed. Cavity was entered and PFC was largely resolved with nice pink granulation tissue and minimal cavity. No stent was replaced. There was fresh blood oozing after procedure. She also underwent LE DVT US per Vascular Medicine recommendation, without any thrombus seen though chronic changes visualized in the popliteal vein, and the right PTV and peroneal veins were visualized in segments due to swelling, therefore can no rule out thrombus in non-visualized areas. While she was admitted, her pain was managed with IV dilaudid and scheduled tylenol, and nausea with phenergan and zofran, and she tolerated her low fat diet well without issue at time of discharge. Additionally, she became tachycardic during admission with ECG unremarkable, for which her home metoprolol was restarted as it had been previously discontinued at her previous admission. She was discharged with Vascular Medicine and GI follow up. [facility] Work Phone: 12-08-2023 Plan of care note Problem: Pain Goal: My pain/discomfort is manageable Outcome: Progressing Problem: Safety Goal: Patient will be injury free during hospitalization Outcome: Progressing Goal: I will remain free of falls Outcome: Progressing The patient's goals for the shift include The clinical goals for the shift include patient will rate pain at or below a level of 4 out of 10 by the end of this shift. Over the shift, the patient did not make progress toward the following goals. [facility] 12-07-2023 Note Formatting of this n ote might be different from the original. Abdomen [facility] 12-07-2023 Plan of care note Patient down to GI lab today for procedure. Patient c/o elevated pain and nausea this shift; PRN zofran ordered and patient medicated per EMR for pain. No acute events noted. Patient pending discharge most likely tomorrow. The clinical goals for the shift include patient will rate pain at or below a level of 4 out of 10 by the end of this shift. Goal not met. Patient c/o elevated pain; medicated per EMR. Patient plan of care ongoing. Caroline SANCHEZ, RN, CMSRN Problem: Fall/Injury Goal: Not fall by end of shift Outcome: Progressing Goal: Be free from injury by end of the shift Outcome: Progressing Goal: Verbalize understanding of personal risk factors for fall in the hospital Outcome: Progressing Goal: Verbalize understanding of risk factor reduction measures to prevent injury from fall in the home Outcome: Progressing Goal: Use assistive devices by end of the shift Outcome: Progressing Goal: Pace activities to prevent fatigue by end of the shift Outcome: Progressing Problem: Pain Goal: My pain/discomfort is manageable Outcome: Progressing Problem: Safety Goal: Patient will be injury free during hospitalization Outcome: Progressing Goal: I will remain free of falls Outcome: Progressing Problem: Daily Care Goal: Daily care needs are met Outcome: Progressing Problem: Psychosocial Needs Goal: Demonstrates ability to cope with hospitalization/illness Outcome: Progressing Goal: Collaborate with me, my family, and caregiver to identify my specific goals Outcome: Progressing Problem: Discharge Barriers Goal: My discharge needs are met Outcome: Progressing Problem: Pain Goal: Takes deep breaths with improved pain control throughout the shift Outcome: Progressing Goal: Turns in bed with improved pain control throughout the shift Outcome: Progressing Goal: Walks with improved pain control throughout the shift Outcome: Progressing Goal: Performs ADL's with improved pain control throughout shift Outcome: Progressing Goal: Participates in PT with improved pain control throughout the shift Outcome: Progressing Goal: Free from opioid side effects throughout the shift Outcome: Progressing Goal: Free from acute confusion related to pain meds throughout the shift Outcome: Progressing Problem: Pain - Adult Goal: Verbalizes/displays adequate comfort level or baseline comfort level Outcome: Progressing Problem: Safety - Adult Goal: Free from fall injury Outcome: Progressing Problem: Discharge Planning Goal: Discharge to home or other facility with appropriate resources Outcome: Progressing Problem: Chronic Conditions and Co-morbidities Goal: Patient's chronic conditions and co-morbidity symptoms are monitored and maintained or improved Outcome: Progressing Problem: Diabetes Goal: Achieve decreasing blood glucose levels by end of shift Outcome: Progressing Goal: Increase stability of blood glucose readings by end of shift Outcome: Progressing Goal: Decrease in ketones present in urine by end of shift Outcome: Progressing Goal: Maintain electrolyte levels within acceptable range throughout shift Outcome: Progressing Goal: Maintain glucose levels >70mg/dl to <250mg/dl throughout shift Outcome: Progressing Goal: No changes in neurological exam by end of shift Outcome: Progressing Goal: Learn about and adhere to nutrition recommendations by end of shift Outcome: Progressing Goal: Vital signs within normal range for age by end of shift Outcome: Progressing Goal: Increase self care and/or family involovement by end of shift Outcome: Progressing Goal: Receive DSME education by end of shift Outcome: Progressing [facility] Work Phone: 12-07-2023 History of Present illness Narrative Dorothea Rutledge is a 47 y.o. female on day 2 of admission presenting with Generalized abdominal pain. Subjective NAEON, Still experiencing some throat discomfort but stable. Slept throughout the night last night and had been tolerating her diet better yesterday evening. Pain well controlled on current regimen. Did experience some worsening nausea and emesis this morning that did not respond to her phenergan. Discussed her home metoprolol, she had been taking 25mg metop succinate per her tinsmith helper for an elevated heart rate with extra beats here and there and had been on this since her recent admission when it was discontinued at the end of October as her tachycardia had improved. Since that discharge, she had been taking her metoprolol until her admission here. 10 point ROS performed and negative unless stated above. Medications Scheduled medications acetaminophen, 975 mg, oral, TID ARIPiprazole, 10 mg, oral, Daily ascorbic acid, 1,000 mg, oral, Nightly benztropine, 0.5 mg, oral, BID divalproex, 250 mg, oral, BID fenofibrate, 160 mg, oral, Daily furosemide, 40 mg, oral, Daily [Held by provider] glipiZIDE XL, 10 mg, oral, Daily insulin lispro protamin-lispro, 10 Units, subcutaneous, TID AC metoprolol succinate XL, 25 mg, oral, Daily nystatin, , Topical, q8h pancrelipase (Gjn-Kplx-Rtsp), 2 capsule, oral, TID with meals polyethylene glycol, 17 g, oral, Daily potassium chloride, 20 mEq, intravenous, q2h potassium chloride CR, 20 mEq, oral, Daily [Held by provider] rivaroxaban, 10 mg, oral, Daily with evening meal valACYclovir, 500 mg, oral, Daily venlafaxine XR, 150 mg, oral, Daily venlafaxine XR, 75 mg, oral, Daily Continuous medications PRN medications PRN medications: alteplase, alteplase, alteplase, heparin, heparin lock flush (porcine), HYDROmorphone, ketamine (bulk), melatonin, ondansetron, promethazine Objective Last Recorded Vitals BP (!) 147/93 Pulse (!) 119 Temp 36.6 C (97.9 F) (Temporal) Resp 20 Wt 104 kg (230 lb) SpO2 97% Intake/Output last 3 Shifts: Intake/Output Summary (Last 24 hours) at 12/07/2023 0940 Last data filed at 12/07/2023 0844 Gross per 24 hour Intake 590 ml Output -- Net 590 ml Admission Weight Weight: 104 kg (230 lb) (12/05/23 1503) Daily Weight 12/05/23 : 104 kg (230 lb) Physical Exam: Constitutional: No acute distress, resting comfortably in bed, cooperative HEENT: Normocephalic, atraumatic, PERRLA, EOMI, moist mucous membranes, no pharyngeal erythema Cardiovascular: Tachycardic, normal rhythm, normal S1/S2, no murmurs noted Pulmonary: Clear to auscultation b/l, no wheezes/crackles/rhonchi, no increased work of breathing GI: Soft, tender to palpation epigastric, no distension, rebound tenderness, guarding Lower extremities: Warm and well perfused, no lower extremity edema Neuro: A&O x3, able to move all 4 extremities spontaneously Psych: Appropriate mood and affect Labs Results from last 7 days Lab Units 12/07/23 0840 12/07/23 0604 12/06/23 0511 WBC AUTO x10*3/uL 5.8 5.9 6.5 HEMOGLOBIN g/dL 12.0 12.5 12.8 HEMATOCRIT % 36.4 39.7 40.2 PLATELETS AUTO x10*3/uL 207 231 261 Results from last 7 days Lab Units 12/07/23 0604 12/06/23 0511 12/05/23 1820 SODIUM mmol/L 135* 137 137 POTASSIUM mmol/L 3.3* 3.8 4.0 CHLORIDE mmol/L 96* 98 101 CO2 mmol/L 25 26 24 BUN mg/dL 16 18 17 CREATININE mg/dL 0.74 0.70 0.63 CALCIUM mg/dL 9.3 9.8 9.0 Results from last 7 days Lab Units 12/07/23 0604 12/05/23 1820 ALK PHOS U/L 112* 93 BILIRUBIN TOTAL mg/dL 0.5 0.3 BILIRUBIN DIRECT mg/dL 0.2 -- PROTEIN TOTAL g/dL 7.3 7.0 ALT U/L 70* 61* AST U/L 39 24 Results from last 7 days Lab Units 12/07/23 0604 12/06/23 0511 12/05/23 1820 APTT seconds -- 37 29 INR 1.1 [address] abdomen pelvis w IV contrast Final Result 1. Status post cyst gastrostomy with near interval resolution of the previously noted pseudocyst. 2. Nonocclusive portal vein thrombus. 3. Stable appearance of the liver including steatosis and the apparent enhancing subcentimeter area at the approximate junction of hepatic segments VIII/Erik. I personally reviewed the images/study and I agree with the findings as stated by Dr. Rommel Malagon. This study was interpreted at [place], [place]. MACRO: Critical Finding: See findings. Notification was initiated on 12/06/2023 at 9:31 am by Rommel Malagon. (-OCF-) Instructions: Signed by: Letha Pennington 12/06/2023 12:19 PM Dictation workstation: [id number] Lower extremity venous duplex bilateral (Results Pending) Assessment/Plan Principal Problem: Generalized abdominal pain Dorothea Rutledge is a 47 y.o. female with PMHx Factor V Leiden mutation on Xarelto, HTN, T2DM, chronic pancreatitis (on ketamine 100mg/lidocaine 40mg inhalation) c/b necrotizing pancreatitis and pancreatic pseudocyst, and opioid dependence who presents for planned stent removal and cyst reassessment s/p EUS-guided cystogastrostomy on 11/14. Pt presented 12/04 for procedure however was unaware of 48hr Xarelto washout period, therefore procedure cancelled and patient was admitted. EGD today for stent removal and evaluation of cystogastrostomy. #Acute on chronic pancreatitis #Pancreatic pseudocyst s/p cystogastrostomy 11/14 #hx of Factor V Leiden mutation and recurrent DVT #Nonocclusive portal vein thrombus - Initially developed pancreatitis ~2007 after increased alcohol use in college, with recurrent episodes beginning 2013. Etiology likely EtOH related vs idiopathic, did have elevated IgG4 levels but EUS not c/w AIP - S/p EUS with cystogastrostomy 11/14 with one 7 Fr x4cm double pigtail plastic stent - Last dose of Xarelto 12/02 at 10pm - CT A/P w IV contrast: Status post cyst gastrostomy with near interval resolution of the previously noted pseudocyst. Nonocclusive portal vein thrombus. - Consulted vascular medicine given portal vein thrombus and c/f Xarelto failure iso chronic pancreatitis and Factor V leiden mutation. Will start on Lovenox and potentially bridge to Warfarin. Appreciate recs [] EGD today, will start on Lovenox post procedure pending report, with potential plan to bridge to warfarin pending patient preference [] Low fat diet [] Tylenol 975 TID scheduled, prn 1mg dilaudid IV for breakthrough [] Started zofran in addition to phenergan for nausea [] Fu LE DVT US #Tachycardia - Pt devleoping tachycardia since admission, as high as 115 this morning. Asymptomatic. Reports being on metoprolol succ 25mg at home, though this was not on her home med list and appears to have been discontinued at her recent admission 11/15. Could also be component of pain as well. - ECG sinus rhythm, no changes from previous ECGs [] Starting home metop succ 25mg Fluids: PRN Electrolytes: PRN Nutrition: Low fat Access: Mediport DVT ppx: Lovenox GI ppx: None Code status: Full (confirmed on admission) NOK: Lizz Dockery (mother) [phone] Dispo: Ideally will follow up with [facility] however patient lives in [place] Andreea Gandhi MD Internal Medicine, PGY-1 Associated attestation - Nancy Agrawal MD - 12/07/2023 2:24 PM EDT I saw and evaluated the patient. I personally obtained the denise and critical portions of the history and physical exam or was physically present for denise and critical portions performed by the resident/fellow. I reviewed the resident/fellow's documentation and discussed the patient with the resident/fellow. I agree with the resident/fellow's medical decision making as documented in the note with the exception/addition of the following: Did well post-procedure and cyst cavity nearly resolved so stents removed. Plan to monitor and restart anticoagulation. 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 12/06/23 1108 Discharge Planning Living Arrangements Spouse/significant other Support Systems Spouse/significant other;Parent (Boyfriend and mother.) Assistance Needed None Type of Residence Private residence Do you have animals or pets at home? Yes Type of Animals or Pets dog Who is requesting discharge planning? Patient Home or Post Acute Services None Patient expects to be discharged to: Home Does the patient need discharge transport arranged? No (family will provide.) Financial Resource Strain How hard is it for you to pay for the very basics like food, housing, medical care, and heating? Not very Housing Stability In the last 12 months, was there a time when you were not able to pay the mortgage or rent on time? N In the last 12 months, was there a time when you did not have a steady place to sleep or slept in a chcf (including now)? N Transportation Needs In the past 12 months, has lack of transportation kept you from medical appointments or from getting medications? no In the past 12 months, has lack of transportation kept you from meetings, work, or from getting things needed for daily living? No Assessment Note: Met with pt and introduced myself as youth care professional and member of the Care Transitions team for discharge planning. Pt feels safe at home. Pt drives or mother provides transport to drs appts. Pt's address, phone number and contact information was verified. Pt does not have any questions/concerns at this time. Previous Home Care: None DME: glucometer, wrist BP cuff, pulse oximeter. Pharmacy: [facility] in [place] Falls: Denies PCP: [facility] INVESTOR RELATIONS DIRECTOR Cj Rivera (last seen 09/2023-has upcoming appt on next Tuesday). Priti Alcantara MSN, RN- Transitional Retirement Administrator (TCC) [phone] Dorothea Rutledge is a 47 y.o. female on day 1 of admission presenting with Generalized abdominal pain. Subjective NAEON. Having a sore throat this morning, believes it could be related to dry air as she develops this dry throat every time she is admitted, though typically after EGDs. No fevers, chills, having some night sweats but this is normal for her. Abdominal pain controlled on current pain regimen. Ate a grilled cheese for dinner which upset her stomach a bit but since then no nausea/vomiting and has been NPO since midnight. 10 point ROS performed and negative unless stated above. Medications Scheduled medications acetaminophen, 975 mg, oral, TID ARIPiprazole, 10 mg, oral, Daily ascorbic acid, 1,000 mg, oral, Nightly benztropine, 0.5 mg, oral, BID divalproex, 250 mg, oral, BID fenofibrate, 160 mg, oral, Daily furosemide, 40 mg, oral, Daily [Held by provider] glipiZIDE XL, 10 mg, oral, Daily insulin lispro protamin-lispro, 10 Units, subcutaneous, TID AC nystatin, , Topical, q8h pancrelipase (Fqq-Pspj-Fxas), 2 capsule, oral, TID with meals polyethylene glycol, 17 g, oral, Daily potassium chloride ER, 20 mEq, oral, Daily [Held by provider] rivaroxaban, 10 mg, oral, Daily with evening meal valACYclovir, 500 mg, oral, Daily venlafaxine XR, 150 mg, oral, Daily venlafaxine XR, 75 mg, oral, Daily Continuous medications PRN medications PRN medications: alteplase, alteplase, alteplase, heparin, heparin lock flush (porcine), HYDROmorphone, ketamine (bulk), melatonin, promethazine Objective Last Recorded Vitals BP (!) 143/100 Pulse (!) 111 Temp 36.1 C (97 F) (Temporal) Resp 20 Wt 104 kg (230 lb) SpO2 97% Intake/Output last 3 Shifts: No intake or output data in the 24 hours ending 12/06/23 09 Admission Weight Weight: 104 kg (230 lb) (12/05/23 1503) Daily Weight 12/05/23 : 104 kg (230 lb) Physical Exam: Constitutional: No acute distress, resting comfortably in bed, cooperative HEENT: Normocephalic, atraumatic, PERRLA, EOMI, moist mucous membranes, no pharyngeal erythema Cardiovascular: RRR, normal S1/S2, no murmurs noted Pulmonary: Clear to auscultation b/l, no wheezes/crackles/rhonchi, no increased work of breathing GI: Soft, tender to palpation epigastric, improved from day prior, no distension, rebound tenderness, guarding Lower extremities: Warm and well perfused, no lower extremity edema Neuro: A&O x3, able to move all 4 extremities spontaneously Psych: Appropriate mood and affect Labs Results from last 7 days Lab Units 12/06/23 0511 12/05/23 1820 WBC AUTO x10*3/uL 6.5 8.0 HEMOGLOBIN g/dL 12.8 12.1 HEMATOCRIT % 40.2 38.3 PLATELETS AUTO x10*3/uL 261 268 Results from last 7 days Lab Units 12/06/23 0511 12/05/23 1820 SODIUM mmol/L 137 137 POTASSIUM mmol/L 3.8 4.0 CHLORIDE mmol/L 98 101 CO2 mmol/L 26 24 BUN mg/dL 18 17 CREATININE mg/dL 0.70 0.63 CALCIUM mg/dL 9.8 9.0 Results from last 7 days Lab Units 12/05/23 1820 ALK PHOS U/L 93 BILIRUBIN TOTAL mg/dL 0.3 PROTEIN TOTAL g/dL 7.0 ALT U/L 61* AST U/L 24 Results from last 7 days Lab Units 12/06/23 0511 12/05/23 1820 APTT seconds 37 29 INR 1.[address] abdomen pelvis w IV contrast Preliminary Result 1. Status post cyst gastrostomy with near interval resolution of the previously noted pseudocyst. 2. Nonocclusive portal vein thrombus. I personally reviewed the images/study and I agree with the findings as stated by Dr. Rommel Malagon. This study was interpreted at [facility], [place], [place]. MACRO: Critical Finding: See findings. Notification was initiated on 12/06/2023 at 9:31 am by Rommel Malagon. (-OCF-) Instructions: See findings. Dictation workstation: [id number] Assessment/Plan Principal Problem: Generalized abdominal pain Dorothea Rutledge is a 47 y.o. female with PMHx Factor V Leiden mutation on Xarelto, HTN, T2DM, chronic pancreatitis (on ketamine 100mg/lidocaine 40mg inhalation) c/b necrotizing pancreatitis and pancreatic pseudocyst, and opioid dependence who presents for planned stent removal and cyst reassessment s/p EUS-guided cystogastrostomy on 11/14. Pt presented 12/04 for procedure however was unaware of 48hr Xarelto washout period, therefore procedure cancelled and patient was admitted. EGD/EUS planned for 12/05, however will plan for 12/06 to ensure anesthesia for procedure. #Acute on chronic pancreatitis #Pancreatic pseudocyst s/p cystogastrostomy 11/14 #hx of Factor V Leiden mutation and recurrent DVT #Nonocclusive portal vein thrombus - Initially developed pancreatitis ~2007 after increased alcohol use in college, with recurrent episodes beginning 2013. Etiology likely EtOH related vs idiopathic, did have elevated IgG4 levels but EUS not c/w AIP - S/p EUS with cystogastrostomy 11/14 with one 7 Fr x4cm double pigtail plastic stent - Last dose of Xarelto 12/02 at 10pm - CT A/P w IV contrast: Status post cyst gastrostomy with near interval resolution of the previously noted pseudocyst. Nonocclusive portal vein thrombus. [] Continue holding Xarelto, started on hepatin gtt in the meantime and will hold at 4am preprocedure [] Low fat diet, NPO at PA for planned stent removal and cyst reassessment [] Tylenol 975 TID scheduled, prn 1mg dilaudid IV for breakthrough [] Consulted vascular medicine given portal vein thrombus and c/f Xarelto failure iso chronic pancreatitis and Factor V leiden mutation. Will resume heparin until 4am morning of procedure, following which will discharge on weight based BID Lovenox pending kidney function, with outpatient follow up to determine Lovenox vs Coumadin. Will also order LE DVT US/ Appreciate recs #Tachycardia - Pt devleoping tachycardia to 111 today, slowly increasing while admitted. Asymptomatic. Reports being on metoprolol at home, though this was not on her home med list and appears to have been discontinued at her recent admission 11/15. - ECG sinus rhythm, no changes from previous ECGs [] Monitoring, if persistently tachycardic will consider starting metoprolol again Fluids: PRN Electrolytes: PRN Nutrition: Low fat, NPO at PA Access: Mediport DVT ppx: hep gtt until 4am GI ppx: None Code status: Full (confirmed on admission) NOK: Lizz Dockery (mother) [phone] Dispo: Ideally will follow up with [facility] however patient lives in [place] Andreea Gandhi MD Internal Medicine, PGY-1 Associated attestation - Nancy Agrawal MD - 12/06/2023 6:20 PM EDT I saw and evaluated the patient. I personally obtained the denise and critical portions of the history and physical exam or was physically present for denise and critical portions performed by the resident/fellow. I reviewed the resident/fellow's documentation and discussed the patient with the resident/fellow. I agree with the resident/fellow's medical decision making as documented in the note with the exception/addition of the following: Endoscopic procedure postponed til tomorrow due to scheduling. Restart heparin drip. Vascular Medicine note appreciated - will likely discharge on Lovenox. documented in this encounter [facility] Work Phone: 12-06-2023 Plan of care note Problem: Fall/Injury Goal: Not fall by end of shift Outcome: Progressing Goal: Be free from injury by end of the shift Outcome: Progressing Goal: Verbalize understanding of personal risk factors for fall in the hospital Outcome: Progressing Goal: Verbalize understanding of risk factor reduction measures to prevent injury from fall in the home Outcome: Progressing Goal: Use assistive devices by end of the shift Outcome: Progressing Goal: Pace activities to prevent fatigue by end of the shift Outcome: Progressing The patient's goals for the shift include The clinical goals for the shift include Pt will maintain a tolerable pain level this shift Over the shift, the patient did not make progress toward the following goals. Barriers to progression include . Recommendations to address these barriers include . [facility] 12-06-2023 Consult note Associated Order (s): Inpatient consult to Vascular Medicine Inpatient consult to Vascular Medicine Consult performed by: Sun Galloway MD Consult ordered by: Nancy Agrawal MD Reason for consult: concern about Xarelto failure Subjective Dorothea Rutledge is a 47 y.o. female on day 1 of admission presenting with Generalized abdominal pain. Vascular medicine is consulted for concern about Xarelto failure Thrombosis history is not available to review but the patient is a good historian In 1995, she had a stroke, apparently with a hemorrhagic component and at the same time she developed bilateral lower extremity DVTs for which an IVC filter was placed Patient used to see hematology at [facility]. When they were able to anticoagulate her, she was started on Coumadin and has been stable on it with no blood clots till she interrupted for 1 month but around a year ago her PCP switched her to Xarelto 10 for secondary prophylaxis Likely because of having erratic INRs when checked with her home monitor kit IVC filter was not retrieved, she was told it perforated and will need reconstruction, she was worried and did not proceed She is struggling with pancreatitis complicated with pseudocyst requiring intervention Imaging today revealed new portal vein thrombosis Review of Systems Intermittent bilateral lower extremity swelling, Left> right Abdominal discomfort Chronic R lazy eye No shortness of breath or chest pain No lightheadedness or dizziness No bruises, melena or other obvious bleeding No other complaints today Past Medical History: Diagnosis Date Awareness under anesthesia Depression Factor V Leiden (CMS/HCC) Pancreatitis Seizure (CMS/HCC) Stroke (CMS/HCC) Past Surgical History: Procedure Laterality Date HYSTERECTOMY IR CVC PORT PLACEMENT 08/26/2023 IR CVC PORT PLACEMENT 08/26/2023 [facility] ANGIO MR HEAD ANGIO WO IV CONTRAST 10/16/2017 MR HEAD ANGIO WO IV CONTRAST [facility] MR NECK ANGIO WO IV CONTRAST 10/16/2017 MR NECK ANGIO WO IV CONTRAST [facility] US GUIDED PERCUTANEOUS PLACEMENT 06/08/2019 US GUIDED PERCUTANEOUS PLACEMENT [facility] Social History Socioeconomic History Marital status: Single Spouse name: Not on file Number of children: Not on file Years of education: Not on file Highest education level: Not on file Occupational History Not on file Tobacco Use Smoking status: Never Smokeless tobacco: Current Tobacco comments: vapes Vaping Use Vaping Use: Every day Substances: Nicotine Substance and Sexual Activity Alcohol use: Not Currently Drug use: Yes Types: Marijuana Sexual activity: Not on file Other Topics Concern Not on file Social History Narrative Not on file Social Determinants of Health Financial Resource Strain: Low Risk (12/06/2023) Overall Financial Resource Strain (CARDIA) Difficulty of Paying Living Expenses: Not very hard Food Insecurity: No Food Insecurity (10/27/2023) Hunger Vital Sign Worried About Running Out of Food in the Last Year: Never true Ran Out of Food in the Last Year: Never true Transportation Needs: No Transportation Needs (12/06/2023) PRAPARE - Transportation Lack of Transportation (Medical): No Lack of Transportation (Non-Medical): No Physical Activity: Not on file Stress: Not on file Social Connections: Not on file Intimate Partner Violence: Not on file Housing Stability: Low Risk (12/06/2023) Housing Stability Vital Sign Unable to Pay for Housing in the Last Year: No Number of Places Lived in the Last Year: 1 Unstable Housing in the Last Year: No Family History Problem Relation Name Age of Onset Coronary artery disease Mother Allergies Allergen Reactions Gabapentin Swelling, Rash and Nausea/vomiting Replaced free text allergyReplaced free text allergy Sulfa (Sulfonamide Antibiotics) Hives, Other and Rash Topiramate Other Penicillins Rash Objective Physical Exam Vitals: 12/06/23 0436 12/06/23 0700 12/06/23 0900 12/06/23 1137 BP: (!) 151/99 (!) 152/97 (!) 143/100 (!) 145/110 BP Location: Right arm Right arm Right arm Patient Position: Lying Lying Lying Pulse: 98 101 (!) 111 90 Resp: 17 20 18 Temp: 36.6 C (97.9 F) 36.1 C (97 F) 36.5 C (97.7 F) Comment: MD patelied - EKG ordered TempSrc: Temporal Temporal Tympanic SpO2: 95% 97% 90% Weight: Height: General: In no acute distress, overweight Neuro: alert and oriented x3 CV: RRR Lungs: CTA bilaterally Abd: Soft, non-tender Psych: Appropriate affect Upper extremities: No swelling, +2 radial Lower extremities: Vaughn LE edema, L>R. +2 DP Skin: No chronic venous stasis changes Medications Scheduled medications acetaminophen, 975 mg, oral, TID ARIPiprazole, 10 mg, oral, Daily ascorbic acid, 1,000 mg, oral, Nightly benztropine, 0.5 mg, oral, BID divalproex, 250 mg, oral, BID fenofibrate, 160 mg, oral, Daily furosemide, 40 mg, oral, Daily [Held by provider] glipiZIDE XL, 10 mg, oral, Daily insulin lispro protamin-lispro, 10 Units, subcutaneous, TID AC nystatin, , Topical, q8h pancrelipase (Axh-Xabx-Sqqx), 2 capsule, oral, TID with meals polyethylene glycol, 17 g, oral, Daily potassium chloride ER, 20 mEq, oral, Daily [Held by provider] rivaroxaban, 10 mg, oral, Daily with evening meal valACYclovir, 500 mg, oral, Daily venlafaxine XR, 150 mg, oral, Daily venlafaxine XR, 75 mg, oral, Daily Continuous medications PRN medications PRN medications: alteplase, alteplase, alteplase, heparin, heparin lock flush (porcine), HYDROmorphone, ketamine (bulk), melatonin, promethazine Lab Review Recent Labs 12/06/23 0511 12/05/23 1820 11/15/23 0606 11/14/23 1806 11/14/23 0500 11/13/23 0450 11/12/23 0447 11/10/23 1650 05/13/23 1917 05/13/23 1555 04/26/23 0010 04/09/23 0648 04/08/23 1717 04/08/23 0725 04/07/23 0432 04/06/23 0831 NA 137 137 135* 139 137 136 136 138 < > 137 < > 137 < > 135* 140 142 K 3.8 4.0 3.8 3.8 3.4* 3.4* 3.6 3.7 < > 3.5 < > 4.2 < > 6.9* 3.8 3.3* CL 98 101 99 99 98 95* 98 101 < > 98 < > 99 < > 99 103 104 CO2 26 24 23 30 27 28 26 22 < > 26 < > 24 < > 26 25 25 ANIONGAP 17 16 17 14 15 16 16 19 < > 17 < > 18 < > 17 16 16 BUN 18 17 6 9 9 12 9 18 < > 16 < > 9 < > 8 6 6 CREATININE 0.70 0.63 0.78 0.86 0.79 0.75 0.68 0.77 < > 0.71 < > 0.72 < > 0.71 0.65 0.61 EGFR >90 >90 >90 83 >90 >90 >90 >90 < > -- -- -- -- -- -- -- MG 2.16 -- -- -- -- 1.93 1.81 -- -- 2.40 -- 1.80 -- 2.03 1.92 1.76 < > = values in this interval not displayed. Recent Labs 12/05/23 1820 11/15/23 0606 11/14/23 1806 11/14/23 0500 11/13/23 0450 11/12/23 0447 11/10/23 1650 08/03/23 0924 07/05/23 1610 06/16/23 0600 06/14/23201505/13/23 1555 05/12/23 1025 ALBUMIN 4.0 3.7 4.0 3.8 3.9 < > 4.3 4.5 5.3* < > 4.0 < > 4.9 ALKPHOS 93 96 106 92 -- -- 79 87 109 < > 67 < > 79 ALT 61* 71* 87* 87* -- -- 72* 35 44 < > 34 < > 60* AST 24 33 49* 31 -- -- 51* 32 33 < > 20 < > 46* BILITOT 0.3 0.6 0.5 0.5 -- -- 0.4 0.4 0.4 < > 0.4 < > 0.3 LIPASE -- -- -- -- -- -- 104* 17 43 -- 67 CANCELED -- 161* < > = values in this interval not displayed. Recent Labs 12/06/23 0511 12/05/23 1820 11/15/23 0606 11/14/23 1806 11/14/23 0500 11/13/23 0032 11/12/23 0447 11/11/23 1610 WBC 6.5 8.0 12.4* 9.0 5.8 5.9 5.3 4.9 HGB 12.8 12.1 10.9* 11.4* 10.9* 10.9* 11.1* 11.1* HCT 40.2 38.3 35.2* 35.2* 34.7* 35.0* 35.0* 33.3* PLT 261 268 213 247 266 281 255 243 MCV 92 92 95 93 94 93 91 88 Recent Labs 12/06/23 0511 12/06/23 0203 12/05/23 1820 11/13/23 0032 11/12/23 2125 11/12/23 1606 11/12/23 1006 11/12/23 0447 11/11/23 2358 11/11/23 2039 11/11/23 1610 05/14/23 1026 04/26/23 0010 04/05/23 2140 04/05/23 0658 04/03/23 1317 06/04/19 0743 06/01/19 0600 INR 1.0 -- 1.1 -- -- -- -- -- -- -- 1.2* 1.1 1.2* -- 1.2* -- 1.2* 1.3* HAUF -- 0.2 -- 0.4 0.4 0.2 0.3 0.2 0.2 0.2 -- -- -- < > -- < > -- -- < > = values in this interval not displayed. PTT - 12/06/2023: 5:11 AM 1.0 11.6 37 Estimated Creatinine Clearance: 113.3 mL/min (by C-G formula based on SCr of 0.7 mg/dL). Recent Labs 04/03/23 0856 CHOL 180 LDLF 123* HDL 19.7* TRIG 188* Lab Results Component Value Date HGBA1C 9.1 (H) 11/10/2023 Lab Results Component Value Date TSH 2.89 10/17/[address] A/P 12/06/23 1. Status post cyst gastrostomy with near interval resolution of the previously noted pseudocyst. 2. Nonocclusive portal vein thrombus. 3. Stable appearance of the liver including steatosis and the apparent enhancing subcentimeter area at the approximate junction of hepatic segments VIII/Erik. Assessment/Plan Dorothea Rutledge is a 47 y.o. female with PMHx of complicated chronic pancreatitis s/p cystogastrostomy on 11/14, seizures, HTN, HLD, DM and obesity. Admitted for acute on chronic pancreatitis. 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 Was maintained on Coumadin for >20 years with no blood clots till she interrupted for 1 month but around a year ago her PCP switched her to Xarelto 10 for secondary prophylaxis for erratic INRs when checked with her home monitor kit _ IVC filter was not retrieved, she was told it perforated and will need reconstruction, she was worried and did not proceed Plan --- She is on Xarelto 10 mg daily for secondary prophylaxis, so difficult to tell if it is Xarelto failure since she is not on a treatment dose But given that the patient is s/p gastrostomy and have chronic pancreatitis with possible underlying malabsorption as well as being on antiseizure medication, would avoid DOAC --- Continue heparin gtt for now till all her procedures are done On discharge we can proceed with Lovenox weight-based twice daily monotherapy if kidney function continuous to be stable versus heparin/Lovenox to Coumadin full bridge Lovenox might be easier to manage if she will have frequent procedures in the near future, she is agreeable --- If pt is to be bridged to coumadin, will need to correlate lab and home INR measures to ensure home kit accuracy --- Further hypercoag workup is of low yield, given that the patient has an indication of long-term anticoagulation with Lovenox versus Coumadin --- LE DVT US Thank you for allowing us to participate in the patient's care. Vascular medicine will sign off. Please do not hesitate to call us back with questions or concerns Sun Galloway MD [facility] Work Phone: 12-06-2023 Consult note Associated Order (s): Inpatient consult to Vascular Medicine Inpatient consult to Vascular Medicine Consult performed by: Sun Galloway MD Consult ordered by: Nancy Agrawal MD Reason for consult: concern about Xarelto failure Subjective Dorothea Rutledge is a 47 y.o. female on day 1 of admission presenting with Generalized abdominal pain. Vascular medicine is consulted for concern about Xarelto failure Thrombosis history is not available to review but the patient is a good historian In 1995, she had a stroke, apparently with a hemorrhagic component and at the same time she developed bilateral lower extremity DVTs for which an IVC filter was placed Patient used to see hematology at [facility]. When they were able to anticoagulate her, she was started on Coumadin and has been stable on it with no blood clots till she interrupted for 1 month but around a year ago her PCP switched her to Xarelto 10 for secondary prophylaxis Likely because of having erratic INRs when checked with her home monitor kit IVC filter was not retrieved, she was told it perforated and will need reconstruction, she was worried and did not proceed She is struggling with pancreatitis complicated with pseudocyst requiring intervention Imaging today revealed new portal vein thrombosis Review of Systems Intermittent bilateral lower extremity swelling, Left> right Abdominal discomfort Chronic R lazy eye No shortness of breath or chest pain No lightheadedness or dizziness No bruises, melena or other obvious bleeding No other complaints today Past Medical History: Diagnosis Date Awareness under anesthesia Depression Factor V Leiden (CMS/HCC) Pancreatitis Seizure (CMS/HCC) Stroke (CMS/HCC) Past Surgical History: Procedure Laterality Date HYSTERECTOMY IR CVC PORT PLACEMENT 08/26/2023 IR CVC PORT PLACEMENT 08/26/2023 [facility] ANGIO MR HEAD ANGIO WO IV CONTRAST 10/16/2017 MR HEAD ANGIO WO IV CONTRAST [facility] MR NECK ANGIO WO IV CONTRAST 10/16/2017 MR NECK ANGIO WO IV CONTRAST [facility] US GUIDED PERCUTANEOUS PLACEMENT 06/08/2019 US GUIDED PERCUTANEOUS PLACEMENT [facility] Social History Socioeconomic History Marital status: Single Spouse name: Not on file Number of children: Not on file Years of education: Not on file Highest education level: Not on file Occupational History Not on file Tobacco Use Smoking status: Never Smokeless tobacco: Current Tobacco comments: vapes Vaping Use Vaping Use: Every day Substances: Nicotine Substance and Sexual Activity Alcohol use: Not Currently Drug use: Yes Types: Marijuana Sexual activity: Not on file Other Topics Concern Not on file Social History Narrative Not on file Social Determinants of Health Financial Resource Strain: Low Risk (12/06/2023) Overall Financial Resource Strain (CARDIA) Difficulty of Paying Living Expenses: Not very hard Food Insecurity: No Food Insecurity (10/27/2023) Hunger Vital Sign Worried About Running Out of Food in the Last Year: Never true Ran Out of Food in the Last Year: Never true Transportation Needs: No Transportation Needs (12/06/2023) PRAPARE - Transportation Lack of Transportation (Medical): No Lack of Transportation (Non-Medical): No Physical Activity: Not on file Stress: Not on file Social Connections: Not on file Intimate Partner Violence: Not on file Housing Stability: Low Risk (12/06/2023) Housing Stability Vital Sign Unable to Pay for Housing in the Last Year: No Number of Places Lived in the Last Year: 1 Unstable Housing in the Last Year: No Family History Problem Relation Name Age of Onset Coronary artery disease Mother Allergies Allergen Reactions Gabapentin Swelling, Rash and Nausea/vomiting Replaced free text allergyReplaced free text allergy Sulfa (Sulfonamide Antibiotics) Hives, Other and Rash Topiramate Other Penicillins Rash Objective Physical Exam Vitals: 12/06/23 0436 12/06/23 0700 12/06/23 0900 12/06/23 1137 BP: (!) 151/99 (!) 152/97 (!) 143/100 (!) 145/110 BP Location: Right arm Right arm Right arm Patient Position: Lying Lying Lying Pulse: 98 101 (!) 111 90 Resp: 17 20 18 Temp: 36.6 C (97.9 F) 36.1 C (97 F) 36.5 C (97.7 F) Comment: MD gaviria - EKG ordered TempSrc: Temporal Temporal Tympanic SpO2: 95% 97% 90% Weight: Height: General: In no acute distress, overweight Neuro: alert and oriented x3 CV: RRR Lungs: CTA bilaterally Abd: Soft, non-tender Psych: Appropriate affect Upper extremities: No swelling, +2 radial Lower extremities: Vaughn LE edema, L>R. +2 DP Skin: No chronic venous stasis changes Medications Scheduled medications acetaminophen, 975 mg, oral, TID ARIPiprazole, 10 mg, oral, Daily ascorbic acid, 1,000 mg, oral, Nightly benztropine, 0.5 mg, oral, BID divalproex, 250 mg, oral, BID fenofibrate, 160 mg, oral, Daily furosemide, 40 mg, oral, Daily [Held by provider] glipiZIDE XL, 10 mg, oral, Daily insulin lispro protamin-lispro, 10 Units, subcutaneous, TID AC nystatin, , Topical, q8h pancrelipase (Gmo-Dlkd-Hzsm), 2 capsule, oral, TID with meals polyethylene glycol, 17 g, oral, Daily potassium chloride ER, 20 mEq, oral, Daily [Held by provider] rivaroxaban, 10 mg, oral, Daily with evening meal valACYclovir, 500 mg, oral, Daily venlafaxine XR, 150 mg, oral, Daily venlafaxine XR, 75 mg, oral, Daily Continuous medications PRN medications PRN medications: alteplase, alteplase, alteplase, heparin, heparin lock flush (porcine), HYDROmorphone, ketamine (bulk), melatonin, promethazine Lab Review Recent Labs 12/06/23 0511 12/05/23 1820 11/15/23 0606 11/14/23 1806 11/14/23 0500 11/13/23 0450 11/12/23 0447 11/10/23 1650 05/13/23 1917 05/13/23 1555 04/26/23 0010 04/09/23 0648 04/08/23 1717 04/08/23 0725 04/07/23 0432 04/06/23 0831 NA 137 137 135* 139 137 136 136 138 < > 137 < > 137 < > 135* 140 142 K 3.8 4.0 3.8 3.8 3.4* 3.4* 3.6 3.7 < > 3.5 < > 4.2 < > 6.9* 3.8 3.3* CL 98 101 99 99 98 95* 98 101 < > 98 < > 99 < > 99 103 104 CO2 26 24 23 30 27 28 26 22 < > 26 < > 24 < > 26 25 25 ANIONGAP 17 16 17 14 15 16 16 19 < > 17 < > 18 < > 17 16 16 BUN 18 17 6 9 9 12 9 18 < > 16 < > 9 < > 8 6 6 CREATININE 0.70 0.63 0.78 0.86 0.79 0.75 0.68 0.77 < > 0.71 < > 0.72 < > 0.71 0.65 0.61 EGFR >90 >90 >90 83 >90 >90 >90 >90 < > -- -- -- -- -- -- -- MG 2.16 -- -- -- -- 1.93 1.81 -- -- 2.40 -- 1.80 -- 2.03 1.92 1.76 < > = values in this interval not displayed. Recent Labs 12/05/23 1820 11/15/23 0606 11/14/23 1806 11/14/23 0500 11/13/23 0450 11/12/23 0447 11/10/23 1650 08/03/23 0924 07/05/23 1610 06/16/23 0600 06/14/23201505/13/23 1555 05/12/23 1025 ALBUMIN 4.0 3.7 4.0 3.8 3.9 < > 4.3 4.5 5.3* < > 4.0 < > 4.9 ALKPHOS 93 96 106 92 -- -- 79 87 109 < > 67 < > 79 ALT 61* 71* 87* 87* -- -- 72* 35 44 < > 34 < > 60* AST 24 33 49* 31 -- -- 51* 32 33 < > 20 < > 46* BILITOT 0.3 0.6 0.5 0.5 -- -- 0.4 0.4 0.4 < > 0.4 < > 0.3 LIPASE -- -- -- -- -- -- 104* 17 43 -- 67 CANCELED -- 161* < > = values in this interval not displayed. Recent Labs 12/06/23 0511 12/05/23 1820 11/15/23 0606 11/14/23 1806 11/14/23 0500 11/13/23 0032 11/12/23 0447 11/11/23 1610 WBC 6.5 8.0 12.4* 9.0 5.8 5.9 5.3 4.9 HGB 12.8 12.1 10.9* 11.4* 10.9* 10.9* 11.1* 11.1* HCT 40.2 38.3 35.2* 35.2* 34.7* 35.0* 35.0* 33.3* PLT 261 268 213 247 266 281 255 243 MCV 92 92 95 93 94 93 91 88 Recent Labs 12/06/23 0511 12/06/23 0203 12/05/23 1820 11/13/23 0032 11/12/23 2125 11/12/23 1606 11/12/23 1006 11/12/23 0447 11/11/23 2358 11/11/23 2039 11/11/23 1610 05/14/23 1026 04/26/23 0010 04/05/23 2140 04/05/23 0658 04/03/23 1317 06/04/19 0743 06/01/19 0600 INR 1.0 -- 1.1 -- -- -- -- -- -- -- 1.2* 1.1 1.2* -- 1.2* -- 1.2* 1.3* HAUF -- 0.2 -- 0.4 0.4 0.2 0.3 0.2 0.2 0.2 -- -- -- < > -- < > -- -- < > = values in this interval not displayed. PTT - 12/06/2023: 5:11 AM 1.0 11.6 37 Estimated Creatinine Clearance: 113.3 mL/min (by C-G formula based on SCr of 0.7 mg/dL). Recent Labs 04/03/23 0856 CHOL 180 LDLF 123* HDL 19.7* TRIG 188* Lab Results Component Value Date HGBA1C 9.1 (H) 11/10/2023 Lab Results Component Value Date TSH 2.89 10/17/[address] A/P 12/06/23 1. Status post cyst gastrostomy with near interval resolution of the previously noted pseudocyst. 2. Nonocclusive portal vein thrombus. 3. Stable appearance of the liver including steatosis and the apparent enhancing subcentimeter area at the approximate junction of hepatic segments VIII/Erik. Assessment/Plan Dorothea Rutledge is a 47 y.o. female with PMHx of complicated chronic pancreatitis s/p cystogastrostomy on 11/14, seizures, HTN, HLD, DM and obesity. Admitted for acute on chronic pancreatitis. 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 Was maintained on Coumadin for >20 years with no blood clots till she interrupted for 1 month but around a year ago her PCP switched her to Xarelto 10 for secondary prophylaxis for erratic INRs when checked with her home monitor kit _ IVC filter was not retrieved, she was told it perforated and will need reconstruction, she was worried and did not proceed Plan --- She is on Xarelto 10 mg daily for secondary prophylaxis, so difficult to tell if it is Xarelto failure since she is not on a treatment dose But given that the patient is s/p gastrostomy and have chronic pancreatitis with possible underlying malabsorption as well as being on antiseizure medication, would avoid DOAC --- Continue heparin gtt for now till all her procedures are done On discharge we can proceed with Lovenox weight-based twice daily monotherapy if kidney function continuous to be stable versus heparin/Lovenox to Coumadin full bridge Lovenox might be easier to manage if she will have frequent procedures in the near future, she is agreeable --- If pt is to be bridged to coumadin, will need to correlate lab and home INR measures to ensure home kit accuracy --- Further hypercoag workup is of low yield, given that the patient has an indication of long-term anticoagulation with Lovenox versus Coumadin --- LE DVT US Thank you for allowing us to participate in the patient's care. Vascular medicine will sign off. Please do not hesitate to call us back with questions or concerns Sun Galloway MD documented in this encounter [facility] [facility] 12-[facility]23 Plan of care note Problem: Pain Goal: My pain/discomfort is manageable Outcome: Progressing The patient's goals for the shift include The clinical goals for the shift include patient will rate pain at or below a level of 4 out of 10 by the end of this shift. Over the shift, the patient did not make progress toward the following goals. [facility] Work Phone: 12-05-2023 Plan of care note Patient admitted to [place] [address] from the endoscopy suite. Patient c/o elevated pain to the abdomen this shift as well as a headache; medicated per EMR. Mediport placed; awaiting cath-flow due to lack of blood return. Patient NPO at midnight for procedure. The clinical goals for the shift include patient will rate pain at or below a level of 4 out of 10 by the end of this shift. Goal not met. Patient medicated for pain via EMR. Patient plan of care ongoing. Caroline SANCHEZ, RN, CMSRN Problem: Fall/Injury Goal: Not fall by end of shift Outcome: Progressing Goal: Be free from injury by end of the shift Outcome: Progressing Goal: Verbalize understanding of personal risk factors for fall in the hospital Outcome: Progressing Goal: Verbalize understanding of risk factor reduction measures to prevent injury from fall in the home Outcome: Progressing Goal: Use assistive devices by end of the shift Outcome: Progressing Goal: Pace activities to prevent fatigue by end of the shift Outcome: Progressing Problem: Pain Goal: My pain/discomfort is manageable Outcome: Progressing Problem: Safety Goal: Patient will be injury free during hospitalization Outcome: Progressing Goal: I will remain free of falls Outcome: Progressing Problem: Daily Care Goal: Daily care needs are met Outcome: Progressing Problem: Psychosocial Needs Goal: Demonstrates ability to cope with hospitalization/illness Outcome: Progressing Goal: Collaborate with me, my family, and caregiver to identify my specific goals Outcome: Progressing Problem: Discharge Barriers Goal: My discharge needs are met Outcome: Progressing Problem: Pain Goal: Takes deep breaths with improved pain control throughout the shift Outcome: Progressing Goal: Turns in bed with improved pain control throughout the shift Outcome: Progressing Goal: Walks with improved pain control throughout the shift Outcome: Progressing Goal: Performs ADL's with improved pain control throughout shift Outcome: Progressing Goal: Participates in PT with improved pain control throughout the shift Outcome: Progressing Goal: Free from opioid side effects throughout the shift Outcome: Progressing Goal: Free from acute confusion related to pain meds throughout the shift Outcome: Progressing [facility] Work Phone: 12-05-2023 History and physical note History and Physical History Of Present Illness Dorothea Rutledge is a 47 y.o. female PMH significant for factor V Leiden mutation on Xarelto, HTN, T2DM, chronic pancreatitis (on ketamine 100mg/lidocaine 40mg inhalation QID prn, previously on Ketamine 30mg/Propofol 100mg infusions last dose 11/09/2023), necrotizing pancreatitis, pancreatic pseudocyst, and opioid dependence who presents for planned stent removal and cyst reassessment s/p EUS-guided cystogastrostomy on 11/14. Pt recently admitted 11/10-11/15 for abdominal pain, found to have 10x6.4cm enlarging pancreatic pseudocyst involving the head/body on MRCP 11/09/23. Pt underwent an EUS-guided cystogastrostomy on 11/14 which showed a large round cyst measuring approximately 100 mm x 80 mm with debris present, was found in the area of the body of the pancreas. Therapeutic drainage performed from the gastric body using hot lumen apposing metal stent measuring 20 mm x 10 mm. Post-drainage, one 7 Fr x 4 cm double pigtail plastic stent was placed through the lumen of the prior stent. Pt was planned for EGD today (2-3 weeks post-procedure) for stent removal and cyst reassessment, however pt did not complete 48 hr Xarelto washout period. Pt denies any N/V, fever, chills, chest pain. Endorsing epigastric tenderness which she states is normal for her. GI Hx: MRCP (10/12/2023): IMPRESSION: Increase in size of pancreatic cyst involving the head/body, suggestive of a pseudocyst in a patient with prior pancreatitis. There is main pancreatic ductal dilatation in the tail likely postobstructive in nature, with parenchymal atrophy. Hepatomegaly and hepatic steatosis. Stable subcentimeter enhancing lesion segment VIII of the liver. EUS 11/14: Impression The esophagus appeared normal. Edematous and erythematous mucosa in the stomach. No significant extrinsic compression noted. The duodenal bulb, 1st part of the duodenum, 2nd part of the duodenum and 3rd part of the duodenum appeared normal. No stenosis visualized. A large round cyst measuring approximately 100 mm x 80 mm with debris present, was found in the area of the body of the pancreas. Therapeutic drainage performed from the gastric body using hot lumen apposing metal stent measuring 20 mm x 10 mm. Post-drainage, one 7 Fr x 4 cm double pigtail plastic stent was placed through the lumen of the prior stent. Medications ARIPiprazole (Abilify) tablet 10 mg (has no administration in time range) ascorbic acid (Vitamin C) tablet 1,000 mg (has no administration in time range) benztropine (Cogentin) tablet 0.5 mg (has no administration in time range) divalproex (Depakote) EC tablet 250 mg (has no administration in time range) fenofibrate (Triglide) tablet 160 mg (has no administration in time range) furosemide (Lasix) tablet 40 mg (has no administration in time range) insulin lispro protamin-lispro (HumaLOG Mix 75-25) 100 unit/mL (75-25) injection 10 Units (has no administration in time range) heparin lock flush (porcine) injection 500 Units (has no administration in time range) glipiZIDE XL (Glucotrol XL) 24 hr tablet 10 mg ( oral Dose Auto Held 12/09/23 0900) ketamine (bulk) 100 % powder 1 puff (has no administration in time range) melatonin tablet 3 mg (has no administration in time range) nystatin (Mycostatin) 100,000 unit/gram powder (has no administration in time range) pancrelipase (Emq-Nskz-Xako) (Creon) 12,000-38,000 -60,000 unit per capsule 2 capsule (has no administration in time range) potassium chloride ER (Micro-K) ER capsule 20 mEq (has no administration in time range) promethazine (Phenergan) tablet 25 mg (has no administration in time range) rivaroxaban (Xarelto) tablet 10 mg ( oral Dose Auto Held 12/09/23 1700) venlafaxine XR (Effexor-XR) 24 hr capsule 150 mg (has no administration in time range) venlafaxine XR (Effexor-XR) 24 hr capsule 75 mg (has no administration in time range) valACYclovir (Valtrex) tablet 500 mg (has no administration in time range) polyethylene glycol (Glycolax, Miralax) packet 17 g (17 g oral Not Given 12/05/23 1430) heparin 25,000 Units in dextrose 5% 250 mL (100 Units/mL) infusion (premix) (has no administration in time range) heparin (porcine) injection 2,000-4,000 Units (has no administration in time range) alteplase (Cathflo Activase) injection 1 mg (has no administration in time range) acetaminophen (Tylenol) tablet 975 mg (has no administration in time range) HYDROmorphone (Dilaudid) injection 0.2 mg (has no administration in time range) ROS negative except as stated in HPI. Past Medical History She has a past medical history of Awareness under anesthesia, Depression, Factor V Leiden (CMS/HCC), Pancreatitis, Seizure (CMS/HCC), and Stroke (CMS/HCC). Surgical History She has a past surgical history that includes MR angio neck wo IV contrast (10/16/2017); MR angio head wo IV contrast (10/16/2017); US guided percutaneous placement (06/08/2019); Hysterectomy; and IR CVC port placement (08/26/2023). Social History She reports that she has never smoked. She uses smokeless tobacco. She reports that she does not currently use alcohol. She reports current drug use. Drug: Marijuana. Family History Family History Problem Relation Name Age of Onset Coronary artery disease Mother Allergies Gabapentin, Sulfa (sulfonamide antibiotics), Topiramate, and Penicillins Prior to Admission medications Medication Sig Start Date End Date Taking? Authorizing Provider ARIPiprazole (Abilify) 10 mg tablet Take 1 tablet (10 mg) by mouth once daily. Yes Historical ProviderMD acetaminophen (Tylenol) 325 mg tablet TAKE 2 TABLETS BY MOUTH EVERY 8 HOURS 04/28/23 04/27/24 Terry Kaiser MD ascorbic acid (Vitamin C) 1,000 mg tablet Take 1 tablet (1,000 mg) by mouth once daily at bedtime. 07/06/21 Historical ProviderMD benztropine (Cogentin) 0.5 mg tablet Take 1 tablet (0.5 mg) by mouth 2 times a day. Historical Provider, cholecalciferol (Vitamin D-3) 1,250 mcg (50,000 unit) capsule Dose : 1,250 mcg = 1 cap(s), Oral, Tuesday, # 13 cap(s), 3 Refill(s), Pharmacy: [facility], 160, cm, 01/24/23 14:30:00 EDT, Height, kg, 01/24/23 14:30:00 EDT, Dosing Weight 01/24/23 01/19/24 Historical Provider, divalproex (Depakote) 250 mg EC tablet Take 1 tablet (250 mg) by mouth 2 times a day. Historical Provider, fenofibrate (Tricor) 145 mg tablet 1 tablet (145 mg). 02/02/23 Historical Provider, furosemide (Lasix) 80 mg tablet Take 0.5 tablets (40 mg) by mouth once daily. Historical Provider, glipiZIDE XL (Glucotrol XL) 10 mg 24 hr tablet Take 1 tablet (10 mg) by mouth once daily. Do not crush, chew, or split. Historical ProviderMD insulin asp prt-insulin aspart (NovoLOG Mix 70-30 U-100 Insuln) 100 unit/mL (70-30) injection Inject 10 Units under the skin. Take as directed per insulin instructions. Before meals Historical ProviderMD ketamine HCl (ketamine, bulk,) 100 % powder Ketamine 100 mg/mL + lidocaine 40 mg/mL 1 puff 4 times daily as needed, DSP#20 mL x 5 refills 10/28/23 Tianna Rasmussen MD lacosamide (Vimpat) 100 mg tablet 1 tab in am and 2 tabs in pm Patient not taking: Reported on 12/05/2023 11/15/23 Chastity León MD melatonin 3 mg capsule Take by mouth. 05/14/19 Historical Provider, nystatin (Mycostatin) 100,000 unit/gram powder Apply topically every 8 hours. 06/18/23 Historical Provider, omeprazole (PriLOSEC) [address] capsule 1 capsule (40 mg). 01/24/23 10/12/23 Historical Provider, ondansetron ODT (Zofran-ODT) 8 mg disintegrating tablet DISSOLVE 1 TABLET IN MOUTH THREE TIMES A DAY NEEDED FOR NAUSEA 04/28/23 04/27/24 Terry Kaiser MD pancrelipase, Yob-Apee-Oxeg, (Creon) 12,000-38,000 -60,000 unit capsule Take 2 capsules by mouth 3 times a day with meals. 10/12/23 10/11/24 Colton Hicks MD potassium chloride ER (Micro-K) 10 mEq ER capsule Take 2 capsules (20 mEq) by mouth once daily. Historical Provider, promethazine (Phenergan) 25 mg tablet Take 1 tablet (25 mg) by mouth every 6 hours if needed for nausea or vomiting. 11/15/23 Chastity León MD rivaroxaban (Xarelto) 10 mg tablet Take 1 tablet (10 mg) by mouth. Historical Provider, valACYclovir (Valtrex) 500 mg tablet 1 tablet (500 mg). 01/24/23 01/19/24 Historical Provider, venlafaxine XR (Effexor-XR) 150 mg 24 hr capsule Take 1 capsule (150 mg) by mouth once daily. Do not crush or chew. Historical Provider, venlafaxine XR (Effexor-XR) 75 mg 24 hr capsule Take 1 capsule (75 mg) by mouth once daily. Do not crush or chew. Historical Provider, Last Recorded Vitals Vitals: 12/05/23 1503 BP: 131/82 Pulse: 91 Resp: 20 Temp: 36.6 C (97.9 F) SpO2: 95% Physical Exam: Constitutional: No acute distress, resting comfortably in bed, cooperative HEENT: Normocephalic, atraumatic, PERRLA, EOMI, moist mucous membranes, no pharyngeal erythema Cardiovascular: RRR, normal S1/S2, no murmurs noted Pulmonary: Clear to auscultation b/l, no wheezes/crackles/rhonchi, no increased work of breathing GI: Soft, tender to palpation epigastric, no distension, rebound tenderness, guarding Lower extremities: Warm and well perfused, no lower extremity edema Neuro: A&O x3, able to move all 4 extremities spontaneously Psych: Appropriate mood and affect Relevant Results No lab exists for component: LABALBU No orders to display Principal Problem: Generalized abdominal pain Assessment/Plan: Dorothea Rutledge is a 47 y.o. female with PMHx Factor V Leiden mutation on Xarelto, HTN, T2DM, chronic pancreatitis (on ketamine 100mg/lidocaine 40mg inhalation) c/b necrotizing pancreatitis and pancreatic pseudocyst, and opioid dependence who presents for planned stent removal and cyst reassessment s/p EUS-guided cystogastrostomy on 11/14. Pt presented today for procedure however was unaware of 48hr Xarelto washout period, therefore procedure cancelled today. Xarelto held and will plan for procedure tomorrow. #Acute on chronic pancreatitis #Pancreatic pseudocyst s/p cystogastrostomy 11/14 #hx of Factor V Leiden mutation and recurrent DVT - Initially developed pancreatitis ~2007 after increased alcohol use in college, with recurrent episodes beginning 2013. Etiology likely EtOH related vs idiopathic, did have elevated IgG4 levels but EUS not c/w AIP - S/p EUS with cystogastrostomy 11/14 with one 7 Fr x4cm double pigtail plastic stent - Last dose of Xarelto 12/02 at 10pm [] Continue holding Xarelto, started on hepatin gtt in the meantime and will hold at 4am preprocedure [] Low fat diet, NPO at [facility] for planned stent removal and cyst reassessment Fluids: PRN Electrolytes: PRN Nutrition: Low fat, NPO at [place] Access: Mediport DVT ppx: hep gtt GI ppx: None Code status: Full (confirmed on admission) NOK: Lizz Dockery (mother) [phone] Andreea Gandhi MD Internal Medicine, PGY-1 Associated attestation - Nancy Agrawal MD - 12/06/2023 11:39 AM EDT I saw and evaluated the patient. I personally obtained the denise and critical portions of the history and physical exam or was physically present for denise and critical portions performed by the resident/fellow. I reviewed the resident/fellow's documentation and discussed the patient with the resident/fellow. I agree with the resident/fellow's medical decision making as documented in the note with the exception/addition of the followin yo woman with chronic pancreatitis s/p cyst gastrostomy 11/14, Factor V Leiden on Xarelto for repeat procedure. Noted on imaging to have nonocclusive portal vein thrombus. Will proceed with repeat cystgastrostomy and ask Vascular Medicine to see. [facility] Work Phone: 12-05-2023 History and physical note History and Physical History Of Present Illness Dorothea Rutledge is a 47 y.o. female PMH significant for factor V Leiden mutation on Xarelto, HTN, T2DM, chronic pancreatitis (on ketamine 100mg/lidocaine 40mg inhalation QID prn, previously on Ketamine 30mg/Propofol 100mg infusions last dose 11/09/2023), necrotizing pancreatitis, pancreatic pseudocyst, and opioid dependence who presents for planned stent removal and cyst reassessment s/p EUS-guided cystogastrostomy on 11/14. Pt recently admitted 11/10-11/15 for abdominal pain, found to have 10x6.4cm enlarging pancreatic pseudocyst involving the head/body on MRCP 11/09/23. Pt underwent an EUS-guided cystogastrostomy on 11/14 which showed a large round cyst measuring approximately 100 mm x 80 mm with debris present, was found in the area of the body of the pancreas. Therapeutic drainage performed from the gastric body using hot lumen apposing metal stent measuring 20 mm x 10 mm. Post-drainage, one 7 Fr x 4 cm double pigtail plastic stent was placed through the lumen of the prior stent. Pt was planned for EGD today (2-3 weeks post-procedure) for stent removal and cyst reassessment, however pt did not complete 48 hr Xarelto washout period. Pt denies any N/V, fever, chills, chest pain. Endorsing epigastric tenderness which she states is normal for her. GI Hx: MRCP (10/12/2023): IMPRESSION: Increase in size of pancreatic cyst involving the head/body, suggestive of a pseudocyst in a patient with prior pancreatitis. There is main pancreatic ductal dilatation in the tail likely postobstructive in nature, with parenchymal atrophy. Hepatomegaly and hepatic steatosis. Stable subcentimeter enhancing lesion segment VIII of the liver. EUS 11/14: Impression The esophagus appeared normal. Edematous and erythematous mucosa in the stomach. No significant extrinsic compression noted. The duodenal bulb, 1st part of the duodenum, 2nd part of the duodenum and 3rd part of the duodenum appeared normal. No stenosis visualized. A large round cyst measuring approximately 100 mm x 80 mm with debris present, was found in the area of the body of the pancreas. Therapeutic drainage performed from the gastric body using hot lumen apposing metal stent measuring 20 mm x 10 mm. Post-drainage, one 7 Fr x 4 cm double pigtail plastic stent was placed through the lumen of the prior stent. Medications ARIPiprazole (Abilify) tablet 10 mg (has no administration in time range) ascorbic acid (Vitamin C) tablet 1,000 mg (has no administration in time range) benztropine (Cogentin) tablet 0.5 mg (has no administration in time range) divalproex (Depakote) EC tablet 250 mg (has no administration in time range) fenofibrate (Triglide) tablet 160 mg (has no administration in time range) furosemide (Lasix) tablet 40 mg (has no administration in time range) insulin lispro protamin-lispro (HumaLOG Mix 75-25) 100 unit/mL (75-25) injection 10 Units (has no administration in time range) heparin lock flush (porcine) injection 500 Units (has no administration in time range) glipiZIDE XL (Glucotrol XL) 24 hr tablet 10 mg ( oral Dose Auto Held 12/09/23 0900) ketamine (bulk) 100 % powder 1 puff (has no administration in time range) melatonin tablet 3 mg (has no administration in time range) nystatin (Mycostatin) 100,000 unit/gram powder (has no administration in time range) pancrelipase (Klo-Njuy-Duso) (Creon) 12,000-38,000 -60,000 unit per capsule 2 capsule (has no administration in time range) potassium chloride ER (Micro-K) ER capsule 20 mEq (has no administration in time range) promethazine (Phenergan) tablet 25 mg (has no administration in time range) rivaroxaban (Xarelto) tablet 10 mg ( oral Dose Auto Held 12/09/23 1700) venlafaxine XR (Effexor-XR) 24 hr capsule 150 mg (has no administration in time range) venlafaxine XR (Effexor-XR) 24 hr capsule 75 mg (has no administration in time range) valACYclovir (Valtrex) tablet 500 mg (has no administration in time range) polyethylene glycol (Glycolax, Miralax) packet 17 g (17 g oral Not Given 12/05/23 1430) heparin 25,000 Units in dextrose 5% 250 mL (100 Units/mL) infusion (premix) (has no administration in time range) heparin (porcine) injection 2,000-4,000 Units (has no administration in time range) alteplase (Cathflo Activase) injection 1 mg (has no administration in time range) acetaminophen (Tylenol) tablet 975 mg (has no administration in time range) HYDROmorphone (Dilaudid) injection 0.2 mg (has no administration in time range) ROS negative except as stated in HPI. Past Medical History She has a past medical history of Awareness under anesthesia, Depression, Factor V Leiden ([facility]), Pancreatitis, Seizure (CMS/[facility]), and Stroke (CMS/[facility]). Surgical History She has a past surgical history that includes MR angio neck wo IV contrast (10/16/2017); MR angio head wo IV contrast (10/16/2017); US guided percutaneous placement (06/08/2019); Hysterectomy; and IR CVC port placement (08/26/2023). Social History She reports that she has never smoked. She uses smokeless tobacco. She reports that she does not currently use alcohol. She reports current drug use. Drug: Marijuana. Family History Family History Problem Relation Name Age of Onset Coronary artery disease Mother Allergies Gabapentin, Sulfa (sulfonamide antibiotics), Topiramate, and Penicillins Prior to Admission medications Medication Sig Start Date End Date Taking? Authorizing Provider ARIPiprazole (Abilify) 10 mg tablet Take 1 tablet (10 mg) by mouth once daily. Yes Historical Provider, acetaminophen (Tylenol) 325 mg tablet TAKE 2 TABLETS BY MOUTH EVERY 8 HOURS 04/28/23 04/27/24 Terry Kaiser MD ascorbic acid (Vitamin C) 1,000 mg tablet Take 1 tablet (1,000 mg) by mouth once daily at bedtime. 07/06/21 Historical Provider, benztropine (Cogentin) 0.5 mg tablet Take 1 tablet (0.5 mg) by mouth 2 times a day. Historical Provider, cholecalciferol (Vitamin D-3) 1,250 mcg (50,000 unit) capsule Dose : 1,250 mcg = 1 cap(s), Oral, Tuesday, # 13 cap(s), 3 Refill(s), Pharmacy: [facility], 160, cm, 01/24/23 14:30:00 EDT, Height, kg, 01/24/23 14:30:00 EDT, Dosing Weight 01/24/23 01/19/24 Historical Provider, divalproex (Depakote) 250 mg EC tablet Take 1 tablet (250 mg) by mouth 2 times a day. Historical Provider, fenofibrate (Tricor) 145 mg tablet 1 tablet (145 mg). 02/02/23 Historical Provider, furosemide (Lasix) 80 mg tablet Take 0.5 tablets (40 mg) by mouth once daily. Historical Provider, glipiZIDE XL (Glucotrol XL) 10 mg 24 hr tablet Take 1 tablet (10 mg) by mouth once daily. Do not crush, chew, or split. Historical Provider, insulin asp prt-insulin aspart (NovoLOG Mix 70-30 U-100 Insuln) 100 unit/mL (70-30) injection Inject 10 Units under the skin. Take as directed per insulin instructions. Before meals Historical Provider, ketamine HCl (ketamine, bulk,) 100 % powder Ketamine 100 mg/mL + lidocaine 40 mg/mL 1 puff 4 times daily as needed, DSP#20 mL x 5 refills 10/28/23 Tianna Rasmussen MD lacosamide (Vimpat) 100 mg tablet 1 tab in am and 2 tabs in pm Patient not taking: Reported on 12/05/2023 11/15/23 Chastity León MD melatonin 3 mg capsule Take by mouth. 05/14/19 Historical Provider, nystatin (Mycostatin) 100,000 unit/gram powder Apply topically every 8 hours. 06/18/23 Historical Provider, omeprazole (PriLOSEC) [address] capsule 1 capsule (40 mg). 01/24/23 10/12/23 Historical Provider, ondansetron ODT (Zofran-ODT) 8 mg disintegrating tablet DISSOLVE 1 TABLET IN MOUTH THREE TIMES A DAY NEEDED FOR NAUSEA 04/28/23 04/27/24 Terry Kaiser MD pancrelipase, Jqs-Sfld-[place], (Creon) 12,000-38,000 -60,000 unit capsule Take 2 capsules by mouth 3 times a day with meals. 10/12/23 10/11/24 Colton Hicks MD potassium chloride ER (Micro-K) 10 mEq ER capsule Take 2 capsules (20 mEq) by mouth once daily. Historical Provider, promethazine (Phenergan) 25 mg tablet Take 1 tablet (25 mg) by mouth every 6 hours if needed for nausea or vomiting. 11/15/23 Chastity León MD rivaroxaban (Xarelto) 10 mg tablet Take 1 tablet (10 mg) by mouth. Historical Provider, valACYclovir (Valtrex) 500 mg tablet 1 tablet (500 mg). 01/24/23 01/19/24 Historical Provider, venlafaxine XR (Effexor-XR) 150 mg 24 hr capsule Take 1 capsule (150 mg) by mouth once daily. Do not crush or chew. Historical Provider, venlafaxine XR (Effexor-XR) 75 mg 24 hr capsule Take 1 capsule (75 mg) by mouth once daily. Do not crush or chew. Historical Provider, Last Recorded Vitals Vitals: 12/05/23 1503 BP: 131/82 Pulse: 91 Resp: 20 Temp: 36.6 C (97.9 F) SpO2: 95% Physical Exam: Constitutional: No acute distress, resting comfortably in bed, cooperative HEENT: Normocephalic, atraumatic, PERRLA, EOMI, moist mucous membranes, no pharyngeal erythema Cardiovascular: RRR, normal S1/S2, no murmurs noted Pulmonary: Clear to auscultation b/l, no wheezes/crackles/rhonchi, no increased work of breathing GI: Soft, tender to palpation epigastric, no distension, rebound tenderness, guarding Lower extremities: Warm and well perfused, no lower extremity edema Neuro: A&O x3, able to move all 4 extremities spontaneously Psych: Appropriate mood and affect Relevant Results No lab exists for component: LABALBU No orders to display Principal Problem: Generalized abdominal pain Assessment/Plan: Dorothea Rutledge is a 47 y.o. female with PMHx Factor V Leiden mutation on Xarelto, HTN, T2DM, chronic pancreatitis (on ketamine 100mg/lidocaine 40mg inhalation) c/b necrotizing pancreatitis and pancreatic pseudocyst, and opioid dependence who presents for planned stent removal and cyst reassessment s/p EUS-guided cystogastrostomy on 11/14. Pt presented today for procedure however was unaware of 48hr Xarelto washout period, therefore procedure cancelled today. Xarelto held and will plan for procedure tomorrow. #Acute on chronic pancreatitis #Pancreatic pseudocyst s/p cystogastrostomy 11/14 #hx of Factor V Leiden mutation and recurrent DVT - Initially developed pancreatitis ~2007 after increased alcohol use in college, with recurrent episodes beginning 2013. Etiology likely EtOH related vs idiopathic, did have elevated IgG4 levels but EUS not c/w AIP - S/p EUS with cystogastrostomy 11/14 with one 7 Fr x4cm double pigtail plastic stent - Last dose of Xarelto 12/02 at 10pm [] Continue holding Xarelto, started on hepatin gtt in the meantime and will hold at 4am preprocedure [] Low fat diet, NPO at [place] for planned stent removal and cyst reassessment Fluids: PRN Electrolytes: PRN Nutrition: Low fat, NPO at MN Access: Mediport DVT ppx: hep gtt GI ppx: None Code status: Full (confirmed on admission) NOK: Lizz Dockery (mother) [phone] Andreea Gandhi MD Internal Medicine, PGY-1 Associated attestation - Nancy Agrawal MD - 12/06/2023 11:39 AM EDT I saw and evaluated the patient. I personally obtained the denise and critical portions of the history and physical exam or was physically present for denise and critical portions performed by the resident/fellow. I reviewed the resident/fellow's documentation and discussed the patient with the resident/fellow. I agree with the resident/fellow's medical decision making as documented in the note with the exception/addition of the followin yo woman with chronic pancreatitis s/p cyst gastrostomy 11/14, Factor V Leiden on Xarelto for repeat procedure. Noted on imaging to have nonocclusive portal vein thrombus. Will proceed with repeat cystgastrostomy and ask Vascular Medicine to see. documented in this encounter [facility] Work Phone: 12-05-2023 Note Formatting of this n ote might be different from the original. SEE EXCELLENT GOSPEL SINGER'S NOTE FOR FURTHER DETAILS FOR H&P History Of Present Illness Dorothea Rutledge is a 47 y.o. female with PMH significant for factor V Leiden mutation on Xarelto, HTN, T2DM, chronic pancreatitis (on Ketamine 30mg/Propofol 100mg infusions last dose 11/09/2023; now on ketamine inhaler), necrotizing pancreatitis, pancreatic pseudocyst, and opioid dependence who presents for planned stent removal and cyst reassessment s/p EUS-guided cystogastrostomy on 11/14. Pt was recently admitted on 11/10-11/15 for epigastric pain (lipase 104). Pt with recent imaging via MRI/MRCP on 11/09/23 suggestive of enlarging pancreatic pseudocyst (10 x 6.4 cm) involving the head/body concerning for possible symptomatic cyst. Sent by Dr Hicks. Pt underwent an EUS-guided cystogastrostomy on 11/14 which showed a large round cyst measuring approximately 100 mm x 80 mm with debris present, was found in the area of the body of the pancreas. Therapeutic drainage performed from the gastric body using hot lumen apposing metal stent measuring 20 mm x 10 mm. Post-drainage, one 7 Fr x 4 cm double pigtail plastic stent was placed through the lumen of the prior stent. Pt was planned for EGD today (2-3 weeks post-procedure) for stent removal and cyst reassessment, however pt did not complete 48 hr Xarelto washout period. Pt denies any N/V, fever, chills, chest pain. Endorsing epigastric tenderness which she states is normal for her. 12 point ROS unless stated above. On arrival to [facility]: There were no vitals taken for this visit. Labs: pending GI hx: MRCP (10/12/2023): IMPRESSION: Increase in size of pancreatic cyst involving the head/body, suggestive of a pseudocyst in a patient with prior pancreatitis. There is main pancreatic ductal dilatation in the tail likely postobstructive in nature, with parenchymal atrophy. Hepatomegaly and hepatic steatosis. Stable subcentimeter enhancing lesion segment VIII of the liver. EUS 11/14: Impression The esophagus appeared normal. Edematous and erythematous mucosa in the stomach. No significant extrinsic compression noted. The duodenal bulb, 1st part of the duodenum, 2nd part of the duodenum and 3rd part of the duodenum appeared normal. No stenosis visualized. A large round cyst measuring approximately 100 mm x 80 mm with debris present, was found in the area of the body of the pancreas. Therapeutic drainage performed from the gastric body using hot lumen apposing metal stent measuring 20 mm x 10 mm. Post-drainage, one 7 Fr x 4 cm double pigtail plastic stent was placed through the lumen of the prior stent. Physical Exam General: awake, alert, conversant, NAD Cardiac: RRR, normal S1, S2, no M/R/G Pulm: CTAB, normal respiratory effort, no inc WOB Abdomen: soft, ND, tender in epigastrium, no involuntary guarding or rebound tenderness EXT: no peripheral edema, no asymmetry noted MSK: no focal joint swelling noted Neuro: AOx3, able to follow commands, no gross FND Psych: coherent thought process, appropriate mood and affect Assessment and Plan: Assessment/Plan Principal Problem: Generalized abdominal pain Dorothea Rutledge is a 47 y.o. female with PMH significant for factor V Leiden mutation on Xarelto, HTN, T2DM, chronic pancreatitis (on Ketamine 30mg/Propofol 100mg infusions last dose 11/09/2023; now on ketamine inhaler), necrotizing pancreatitis, pancreatic pseudocyst, and opioid dependence who presents for planned stent removal and cyst reassessment s/p EUS-guided cystogastrostomy on 11/14. Pt did not completed 48 hr Xarelto washout period, therefore procedure cancelled for today. Will plan to continue holding Xarelto tonight and plan for procedure tomorrow instead. #Pancreatic pseudocyst #Acute on Chronic pancreatitis #Hx of Factor V Leiden mutation and recurrent DVT :: etiology thought to be idiopathic vs EtOH related, did have elevated IgG4 levels but on EUS not consistent w/ AIP ::s/p EUS-guided cystogastrostomy on 11/14 with placement of one 7 Fr x 4 cm double pigtail plastic stent ::last dose of Xarelto: 12/02 at 10PM -c/w holding Xarelto -start heparin gtt for tonight, will plan to hold at 4AM preprocedure -NPO at [place] for planned stent removal and cyst reassessment -c/w low fat diet and Creon -can likely discharge after procedure F: PRN E: PRN N: low fat diet GI ppx: none DVT ppx: heparin gtt Code status: Full code NOK: Lizz Dockery - [phone] Johan Burton MD [facility] Work Phone: 12-05-2023 Nurse Note Doctor cancel appt due to patient not prepped for procedure. All not ified doctor will be in to see patient prior to her leaving. [facility] Work Phone: 11-15-2023 Hospital course Narrative Discharge Diagnosis Pseudocyst of pancreas Issues Requiring Follow-Up GI follow up , post procedure cystogastrrostomy Test Results Pending At Discharge Pending Labs No current pending labs. Hospital Course Dorothea Rutledge is a 47 year old female with a PMH of factor V Leiden mutation on Xarelto, HTN, T2DM, chronic pancreatitis (on Ketamine 30mg/Propofol 100mg infusions last dose 11/09/2023), necrotizing pancreatitis, pancreatic pseudocyst, and opioid dependence who was admitted for abdominal pain and diagnosed with 10 cm pseudocyst. She had cystogastrostomy with GI team on 11/14. Post procedure she was tolerating diet normally. She was treated with IV Dilaudid on admission which was discontinued after the procedure. Discharged home in a stable condition with GI follow up. Abdominal pain / to pancreatic pseudocyst Pain was controlled Patient was tolerating diet GI recs appreciated, S/p Cystogastrostomy on 11/14, Tolerating diet without any issues, Factor V leiden/Recurrent DVT's Restarted on Xarelto 10 mg daily Discharged home in a stable condition. Discharge day management time > 30 minutes. Pertinent Physical Exam At Time of Discharge Physical Exam HENT: Head: Normocephalic. Nose: Nose normal. Eyes: Extraocular Movements: Extraocular movements intact. Pupils: Pupils are equal, round, and reactive to light. Cardiovascular: Rate and Rhythm: Normal rate and regular rhythm. Heart sounds: Normal heart sounds. No murmur heard. Pulmonary: Effort: No respiratory distress. Breath sounds: Normal breath sounds. No wheezing. Abdominal: General: There is no distension. Palpations: Abdomen is soft. Tenderness: There is no abdominal tenderness. Musculoskeletal: General: Normal range of motion. Cervical back: Normal range of motion. Skin: General: Skin is warm. Neurological: General: No focal deficit present. Mental Status: She is alert. Psychiatric: Mood and Affect: Mood normal. Home Medications Medication List CHANGE how you take these medications ondansetron ODT 8 mg disintegrating tablet; Commonly known as: Zofran-ODT; DISSOLVE 1 TABLET IN MOUTH THREE TIMES A DAY NEEDED FOR NAUSEA; What changed: Another medication with the same name was removed. Continue taking this medication, and follow the directions you see here. CONTINUE taking these medications albuterol 90 mcg/actuation inhaler ARIPiprazole 10 mg tablet; Commonly known as: Abilify ascorbic acid 1,000 mg tablet; Commonly known as: Vitamin C benztropine 0.5 mg tablet; Commonly known as: Cogentin cholecalciferol 50,000 unit capsule; Commonly known as: Vitamin D-3 * clonazePAM 1 mg tablet; Commonly known as: KlonoPIN * clonazePAM 0.5 mg tablet; Commonly known as: KlonoPIN Creon 12,000-38,000 -60,000 unit capsule; Generic drug: pancrelipase (Glm-Hxfj-Hkqg); Take 2 capsules by mouth 3 times a day with meals. divalproex 250 mg EC tablet; Commonly known as: Depakote fenofibrate 145 mg tablet; Commonly known as: Tricor furosemide 80 mg tablet; Commonly known as: Lasix glipiZIDE XL 10 mg 24 hr tablet; Commonly known as: Glucotrol XL ketamine (bulk) 100 % powder; Ketamine 100 mg/mL + lidocaine 40 mg/mL 1 puff 4 times daily as needed, DSP#20 mL x 5 refills lacosamide 100 mg tablet; Commonly known as: Vimpat; 1 tab in am and 2 tabs in pm lactulose 20 gram/30 mL oral solution Lantus U-100 Insulin 100 unit/mL injection; Generic drug: insulin glargine lidocaine 5 % patch; Commonly known as: Lidoderm magnesium glycinate 100 mg magnesium capsule magnesium oxide 400 mg tablet; Commonly known as: Mag-Ox melatonin 3 mg capsule methocarbamol 500 mg tablet; Commonly known as: Robaxin metoprolol tartrate 25 mg tablet; Commonly known as: Lopressor mirtazapine 7.5 mg tablet; Commonly known as: Remeron Narcan 4 mg/0.1 mL nasal spray; Generic drug: naloxone; INSTILL 1 SPRAY IN ONE NOSTRIL NEEDED FOR ACCIDENTAL OPIOID OVERDOSE; REPEAT WITH SECOND DOSE IN 5 MINUTES IF NO RESPONSE nicotine 21 mg/24 hr patch; Commonly known as: Nicoderm CQ; APPLY 1 PATCH ON THE SKIN EVERY 24 HOURS nortriptyline 25 mg capsule; Commonly known as: Pamelor; TAKE 1 CAPSULE BY MOUTH EVERY NIGHT AT BEDTIME NovoLOG Mix 70-30 U-100 Insuln 100 unit/mL (70-30) injection; Generic drug: insulin asp prt-insulin aspart nystatin 100,000 unit/gram powder; Commonly known as: Mycostatin omeprazole [address] capsule; Commonly known as: PriLOSEC OXcarbazepine 150 mg tablet; Commonly known as: Trileptal Pain Relief (acetaminophen) 325 mg tablet; Generic drug: acetaminophen; TAKE 2 TABLETS BY MOUTH EVERY 8 HOURS potassium chloride ER 10 mEq ER capsule; Commonly known as: Micro-K promethazine 25 mg tablet; Commonly known as: Phenergan; Take 1 tablet (25 mg) by mouth every 6 hours if needed for nausea or vomiting. valACYclovir 500 mg tablet; Commonly known as: Valtrex Xarelto 10 mg tablet; Generic drug: rivaroxaban * This list has 2 medication(s) that are the same as other medications prescribed for you. Read the directions carefully, and ask your doctor or other care provider to review them with you. STOP taking these medications Macrobid 100 mg capsule; Generic drug: nitrofurantoin (macrocrystal-monohydrate) metoprolol succinate XL 25 mg 24 hr tablet; Commonly known as: Toprol-XL ondansetron 4 mg tablet; Commonly known as: Zofran Outpatient Follow-Up Future Appointments Date Time Provider Department Center 11/23/2023 8:00 AM INF 03 PARM [facility]R [facility] [place] 12/07/2023 7:30 AM INF 02 PARM [facility]R [facility] [place] 12/21/2023 8:00 AM INF 04 PARM OPCTR [facility] [place] 01/04/2024 8:00 AM INF 03 PARM OPCTR [facility] [place] 01/18/2024 8:30 AM INF 02 PARM OPCTR [facility] 02/01/2024 8:30 AM INF 01 PARM OPCTR [facility] [place] 02/15/2024 8:30 AM INF 02 PARM OPCTR [facility] [place] Chastity León MD documented in this encounter [facility] Work Phone: 11-15-2023 History of Present illness Narrative Gastroenterology Consult Service Progress Note Department of Gastroenterology & Hepatology [facility] November 15, 2023 Patient: Dorothea Rutledge Medical Record: [id number] Reason for Initial Consult: pancreatic pseudocyst Requesting Service: hospital medicine Interval History: s/p EUS guided cystgastrostomy yesterday. Still off heparin, plan to resume this AM. Remains HDS, AF. Does feel warm, but has been afebrile. Abd with minimal pain. Physical Exam: Vitals: 11/14/23200111/14/23 2335 11/15/23 0333 11/15/23 0554 BP: 119/71 109/66 121/73 Pulse: 101 99 93 Resp: 17 16 Temp: 37.1 C (98.8 F) 36.6 C (97.9 F) 36.9 C (98.4 F) TempSrc: SpO2: 92% 92% 91% Weight: 106 kg (233 lb 11 oz) Height: Intake/Output Summary (Last 24 hours) at 11/15/2023 0613 Last data filed at 11/14/2023 1830 Gross per 24 hour Intake 650 ml Output -- Net 650 ml Alert and oriented x 3 CTAB RRR Abd soft, ND, TTP on epigastric region Skin warm and dry Labs: Lab Results Component Value Date WBC 9.0 11/14/2023 HGB 11.4 (L) 11/14/2023 HCT 35.2 (L) 11/14/2023 MCV 93 11/14/2023 PLT 247 11/14/2023 Lab Results Component Value Date GLUCOSE 254 (H) 11/14/2023 CALCIUM 9.2 11/14/2023 NA 139 11/14/2023 K 3.8 11/14/2023 CO2 30 11/14/2023 CL 99 11/14/2023 BUN 9 11/14/2023 CREATININE 0.86 11/14/2023 Lab Results Component Value Date INR 1.2 (H) 11/11/2023 INR 1.1 05/14/2023 INR 1.2 (H) 04/26/2023 PROTIME 13.6 (H) 11/11/2023 PROTIME 12.7 05/14/2023 PROTIME 13.3 (H) 04/26/2023 Imaging: === 11/10/23 === CT ABDOMEN PELVIS W IV CONTRAST - Impression - 1. Similar size and morphology of large loculated pancreatic pseudocyst centered within the pancreatic head and uncinate process when compared to MRCP from 11/09/2023 but enlarged when compared to prior CT of the abdomen and pelvis from 06/15/2023 as described in detail above. 2. Vague fat stranding and mesenteric edema surrounds the pancreatic head and uncinate process which may represent component of acute on chronic pancreatitis. 3. Minimal ductal dilatation in the pancreatic tail similar to recent MRCP. 4. Hepatic steatosis and hepatomegaly. 5. Additional findings as above. === 11/09/23 === MR MRCP WITH PANCREAS WO AND W CONTRAST - Impression - Increase in size of pancreatic cyst involving the head/body, suggestive of a pseudocyst in a patient with prior pancreatitis. There is main pancreatic ductal dilatation in the tail likely postobstructive in nature, with parenchymal atrophy. Hepatomegaly and hepatic steatosis. Stable subcentimeter enhancing lesion segment VIII of the liver. Signed by: Shelli Paris 11/09/2023 3:51 PM Dictation workstation: [id number] GI procedures: 03/2016 Cscope Cecum: Normal. Ascending: Normal Transverse: Normal Descending:Normal Sigmoid: Normal Rectum: Normal Retroflexed views: Grade II internal hemorrhoids ERCP 2017 (elevated Lft, c/f choledocho) Impression: - The major papilla appeared normal. - The upper third of the main bile duct and middle third of the main bile duct were mildly dilated. - The patient has had a cholecystectomy. - A biliary sphincterotomy was performed. - The biliary tree was swept and nothing was found. Recommendation: - Return patient to [facility] for [facility] care. EUS 03/2023 Impression: - Normal area of the papilla. - Acute on Chronic pancreatitis - A 40 mm pseudocyst was seen in the pancreatic head. Tissue has not been obtained. However, the endosonographic appearance is suggestive of a pancreatic pseudocyst. - No specimens collected. Assessment and Plan: Dorothea Rutledge is a 47 y.o. female with a past medical history of factor V Leiden on xarelto, seizures, anxiety, depression and chronic abdominal pain 2/2 recurrent acute on chronic pancreatitis (on Creon and q2 weeks Ketamine infusion, etiology thought to be idiopathic vs EtOH related, did have elevated IgG4 levels but on EUS not consistent w/ AIP) who has been admitted to [facility] on 11/11/23 for abdominal pain. Recent imaging via MRI/MRCP on 11/09/23 suggestive of enlarging pancreatic pseudocyst (10 cm) concerning for possible symptomatic cyst. Plan for EUS-guided cyst-gastrostomy on 11/14/23. #Recurrent acute on chronic pancreatitis :: Suspect her symptoms are driven by enlarging pancreatic pseudocyst in the setting of chronic pancreatitis. She may have an acute component of acute pancreatitis given elevated lipase but this is unclear. Will plan to drain cyst and monitor response EUS 11/14: Impression The esophagus appeared normal. Edematous and erythematous mucosa in the stomach. No significant extrinsic compression noted. The duodenal bulb, 1st part of the duodenum, 2nd part of the duodenum and 3rd part of the duodenum appeared normal. No stenosis visualized. A large round cyst measuring approximately 100 mm x 80 mm with debris present, was found in the area of the body of the pancreas. Therapeutic drainage performed from the gastric body using hot lumen apposing metal stent measuring 20 mm x 10 mm. Post-drainage, one 7 Fr x 4 cm double pigtail plastic stent was placed through the lumen of the prior stent. Findings The esophagus appeared normal. The exam of the esophagus is normal. There was no esophagitis, stenosis, varices or ulcers. Regular Z-line 38 cm from the incisors Edematous and erythematous mucosa in the stomach The exam of the stomach was otherwise unremarkable. There was no significant deformity from extrinsic compression. No ulcers, erosions or gastric varices. The duodenal bulb, 1st part of the duodenum, 2nd part of the duodenum and 3rd part of the duodenum appeared normal. No extrinsic compression in the examined duodenum was visualized. 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 It is not in obvious communication with the pancreatic duct. The lesion measured approximately 100 mm by 80 mm in maximal cross-sectional diameter. There was a single compartment without septae. The outer wall of the lesion was thick. There was no associated mass. There was internal debris within the fluid-filled cavity. The wall of the cyst was interrogated utilizing color Doppler imaging to identify any interposed vessels. Using the NeoCodex stent delivery system, the cavity was punctured under endosonographic guidance using cautery. The 20 mm by 10 mm dumbell shaped fully covered metal stent was then deployed under both endosonographic and fluoroscopic guidance. Stent placement was confirmed on fluoroscopy and endoscopy. There was good drainage of fluid following stent placement. The scope was withdrawn and replaced with the gastroscope. No post-stent dilation performed. Solid debris/necrosis could be seen within the cyst cavity. A 0.025 inch x 450 cm straight Visiglide wire was inserted into the WOPN under fluoroscopic guidance and allowed to coil multiple times. Due to the amount of debris within the cyst, an anchoring 7 Fr by 4 cm zimmon double pigtail stent was placed into the cyst cavity through the AXIOS stent using a stent introducer set. The stent was successfully placed. Recommendations: - Watch for bleeding, perforation, and infection. - Will plan for repeat EGD in 2-3 weeks for stent removal and cyst reassessment which may require direct endoscopic necrosectomy. Will order for pre-procedure imaging. (Ordered). - Low fat diet - Continue home Creon Patient seen and discussed with attending, Dr. Agrawal. Nadia Weaver, GI fellow Thank you for the consultation. The consulting team will sign off now. Please do not hesitate to contact us again on by paging the consultation team again between the weekday hours of 7 AM - 5 PM. If there is an urgent concern during the weekend, after-hours, or holidays; then [place] [phone]. Thank you. SIGNATURE: Nadia Weaver MD PATIENT NAME: Dorothea Rutledge DATE: November 15, 2023 Associated attestation - Nancy Agrawal MD - 11/15/2023 3:03 PM EST I saw and evaluated the patient. I personally obtained the denise and critical portions of the history and physical exam or was physically present for denise and critical portions performed by the resident/fellow. I reviewed the resident/fellow's documentation and discussed the patient with the resident/fellow. I agree with the resident/fellow's medical decision making as documented in the note. Dorothea Rutledge is a 47 y.o. female on day 4 of admission presenting with Pseudocyst of pancreas. Subjective No events over night. Reporting no abdominal pain, ( seen after returning from GI lab) RN reported no new events. Objective Physical Exam HENT: Head: Normocephalic. Nose: Nose normal. Eyes: Extraocular Movements: Extraocular movements intact. Pupils: Pupils are equal, round, and reactive to light. Cardiovascular: Rate and Rhythm: Normal rate. Heart sounds: Normal heart sounds. No murmur heard. Pulmonary: Effort: No respiratory distress. Breath sounds: Normal breath sounds. No wheezing. Abdominal: General: Bowel sounds are normal. There is no distension. Palpations: Abdomen is soft. Comments: No abdominal tenderness, Musculoskeletal: General: Normal range of motion. Cervical back: Normal range of motion. Skin: General: Skin is warm. Neurological: General: No focal deficit present. Mental Status: She is alert. Psychiatric: Mood and Affect: Mood normal. Last Recorded Vitals Blood pressure 111/80, pulse 103, temperature 37 C (98.6 F), resp. rate 14, height 1.6 m (5' 3 ), weight 106 kg (233 lb 11 oz), SpO2 92 %. Intake/Output last 3 Shifts: I/O last 3 completed shifts: In: 215 (2 mL/kg) [I.V.:215 (2 mL/kg)] Out: - (0 mL/kg) Weight: 106 kg Relevant Results Scheduled medications ARIPiprazole, 10 mg, oral, Daily benztropine, 0.5 mg, oral, BID divalproex, 250 mg, oral, BID fenofibrate, 160 mg, oral, Daily furosemide, 40 mg, oral, Daily insulin lispro, 0-5 Units, subcutaneous, q4h lactulose, 20 g, oral, BID lidocaine, 0.1 mL, subcutaneous, Once metoprolol succinate XL, 25 mg, oral, Daily nystatin, 1 Application, Topical, BID pancrelipase ([id number]), 2 capsule, oral, TID with meals pantoprazole, 40 mg, intravenous, Daily potassium chloride CR, 20 mEq, oral, TID [Held by provider] rivaroxaban, 10 mg, oral, Daily with evening meal valACYclovir, 500 mg, oral, Daily [Held by provider] venlafaxine XR, 225 mg, oral, Daily with breakfast Continuous medications [Held by provider] heparin, 0-4,000 Units/hr, Last Rate: 16 Units/hr (11/14/23 0156) lactated Ringer's, 50 mL/hr PRN medications PRN medications: acetaminophen, dextrose 10 % in water (D10W), dextrose, diphenhydrAMINE, glucagon, HYDROmorphone, melatonin, nicotine polacrilex, ondansetron ODT OR ondansetron, ondansetron, oxygen, polyethylene glycol, promethazine, promethazine (Phenergan) 6.25 mg in sodium chloride 0.9% 50 mL IV Results for orders placed or performed during the hospital encounter of 11/10/23 (from the past 24 hour(s)) POCT GLUCOSE Result Value Ref Range POCT Glucose 241 (H) 74 - 99 mg/dL POCT GLUCOSE Result Value Ref Range POCT Glucose 243 (H) 74 - 99 mg/dL POCT GLUCOSE Result Value Ref Range POCT Glucose 191 (H) 74 - 99 mg/dL CBC Result Value Ref Range WBC 5.8 4.4 - 11.3 x10*3/uL nRBC 0.0 0.0 - 0.0 /100 WBCs RBC 3.71 (L) 4.00 - 5.20 x10*6/uL Hemoglobin 10.9 (L) 12.0 - 16.0 g/dL Hematocrit 34.7 (L) 36.0 - 46.0 % MCV 94 80 - 100 fL MCH 29.4 26.0 - 34.0 pg MCHC 31.4 (L) 32.0 - 36.0 g/dL RDW 14.3 11.5 - 14.5 % Platelets 266 150 - 450 x10*3/uL Comprehensive Metabolic Panel Result Value Ref Range Glucose 190 (H) 74 - 99 mg/dL Sodium 137 136 - 145 mmol/L Potassium 3.4 (L) 3.5 - 5.3 mmol/L Chloride 98 98 - 107 mmol/L Bicarbonate 27 21 - 32 mmol/L Anion Gap 15 10 - 20 mmol/L Urea Nitrogen 9 6 - 23 mg/dL Creatinine 0.79 0.50 - 1.05 mg/dL eGFR >90 >60 mL/min/1.73m*2 Calcium 9.0 8.6 - 10.6 mg/dL Albumin 3.8 3.4 - 5.0 g/dL Alkaline Phosphatase 92 33 - 110 U/L Total Protein 6.1 (L) 6.4 - 8.2 g/dL AST 31 9 - 39 U/L Bilirubin, Total 0.5 0.0 - 1.2 mg/dL ALT 87 (H) 7 - 45 U/L POCT GLUCOSE Result Value Ref Range POCT Glucose 169 (H) 74 - 99 mg/dL Assessment/Plan Principal Problem: Pseudocyst of pancreas Active Problems: Diabetes mellitus, type 2 (CMS/HCC) Dorothea Rutledge is a 47 year old female with a PMH of factor V Leiden on Xarelto, HTN, T2DM, chronic pancreatitis (on Ketamine 30mg/Propofol 100mg infusions last dose 11/09/2023), necrotizing pancreatitis, pancreatic pseudocyst, and opioid dependence admitted for abdominal pain and diagnosed with 10 cm pseudocyst. She is waiting for GI procedure cystogastrostomy. Abdominal pain 2/2 to pancreatic pseudocyst Pain is controlled at this time Patient is tolerating diet GI recs appreciated, S/p Cystogastrostomy, Started on full liquid diet, Factor V leiden/Recurrent DVT's Holding heparin drip after the procedure, ( until tomorrow) Restart Xarelto tomorrow, Sinus tachycardia Resolved Prophylaxis Patient is on heparin Disposition: If tolerating diet discharge tomorrow. Personally reviewed prior inpatient records available, labs, imaging, and managed services consultant notes. Personally discussed with nursing staff and transitional youth care professional. Current work up, and treatment and discharge plan is discussed with the patient and counselling is provided. Repeat labs are ordered as needed. Chastity León MD 11/14/23 5615 Transitional Retirement Administrator Notes: Assessment Note: Met with patient to discuss discharge needs. Patient is independent and denies any home care needs. Denies any financial or social work needs. Family will transport patient home at discharge. Patient is admitted for pseudocyst of the pancreas. Patient is scheduled for a cyst gastrostomy today. Home Care: denies DME: denies PCP: Cj Rivera CNP Pharmacy: [facility]: denies Dialysis: denies Assessment/Plan Principal Problem: Pseudocyst of pancreas Active Problems: Diabetes mellitus, type 2 (CMS/HCC) Discharge Plans: discharge home Mariela Powers RN Gastroenterology Consult Service Progress Note Department of Gastroenterology & Hepatology [facility] November 14, 2023 Patient: Dorothea Rutledge Medical Record: [id number] Reason for Initial Consult: pancreatic pseudocyst Requesting Service: hospital medicine Interval History: NPO for EUS today. On heparin ggt. No xarelto since 11/10. Physical Exam: Vitals: 11/13/23 1956 11/14/23 0049 11/14/23 0446 11/14/23 0551 BP: 147/70 111/74 109/81 Pulse: 87 87 87 Resp: 18 16 16 Temp: 36.5 C (97.7 F) 36.2 C (97.2 F) 36.6 C (97.9 F) TempSrc: SpO2: 96% 97% 96% Weight: 106 kg (233 lb 11 oz) Height: Intake/Output Summary (Last 24 hours) at 11/14/2023 0626 Last data filed at 11/14/2023 0156 Gross per 24 hour Intake 57.08 ml Output -- Net 57.08 ml Alert and oriented x 3 CTAB RRR Abd soft, ND, TTP on epigastric region Skin warm and dry Labs: Lab Results Component Value Date WBC 5.8 11/14/2023 HGB 10.9 (L) 11/14/2023 HCT 34.7 (L) 11/14/2023 MCV 94 11/14/2023 PLT 266 11/14/2023 Lab Results Component Value Date GLUCOSE 190 (H) 11/14/2023 CALCIUM 9.0 11/14/2023 NA 137 11/14/2023 K 3.4 (L) 11/14/2023 CO2 27 11/14/2023 CL 98 11/14/2023 BUN 9 11/14/2023 CREATININE 0.79 11/14/2023 Lab Results Component Value Date INR 1.2 (H) 11/11/2023 INR 1.1 05/14/2023 INR 1.2 (H) 04/26/2023 PROTIME 13.6 (H) 11/11/2023 PROTIME 12.7 05/14/2023 PROTIME 13.3 (H) 04/26/2023 Imaging: === 11/10/23 === CT ABDOMEN PELVIS W IV CONTRAST - Impression - 1. Similar size and morphology of large loculated pancreatic pseudocyst centered within the pancreatic head and uncinate process when compared to MRCP from 11/09/2023 but enlarged when compared to prior CT of the abdomen and pelvis from 06/15/2023 as described in detail above. 2. Vague fat stranding and mesenteric edema surrounds the pancreatic head and uncinate process which may represent component of acute on chronic pancreatitis. 3. Minimal ductal dilatation in the pancreatic tail similar to recent MRCP. 4. Hepatic steatosis and hepatomegaly. 5. Additional findings as above. === 11/09/23 === MR MRCP WITH PANCREAS WO AND W CONTRAST - Impression - Increase in size of pancreatic cyst involving the head/body, suggestive of a pseudocyst in a patient with prior pancreatitis. There is main pancreatic ductal dilatation in the tail likely postobstructive in nature, with parenchymal atrophy. Hepatomegaly and hepatic steatosis. Stable subcentimeter enhancing lesion segment VIII of the liver. Signed by: Shelli Paris 11/09/2023 3:51 PM Dictation workstation: [id number] GI procedures: 03/2016 Cscope Cecum: Normal. Ascending: Normal Transverse: Normal Descending:Normal Sigmoid: Normal Rectum: Normal Retroflexed views: Grade II internal hemorrhoids ERCP 2017 (elevated Lft, c/f choledocho) Impression: - The major papilla appeared normal. - The upper third of the main bile duct and middle third of the main bile duct were mildly dilated. - The patient has had a cholecystectomy. - A biliary sphincterotomy was performed. - The biliary tree was swept and nothing was found. Recommendation: - [facility]. EUS 03/2023 Impression: - Normal area of the papilla. - Acute on Chronic pancreatitis - A 40 mm pseudocyst was seen in the pancreatic head. Tissue has not been obtained. However, the endosonographic appearance is suggestive of a pancreatic pseudocyst. - No specimens collected. Assessment and Plan: Dorothea Rutledge is a 47 y.o. female with a past medical history of factor V Leiden on xarelto, seizures, anxiety, depression and chronic abdominal pain 2/2 recurrent acute on chronic pancreatitis (on Creon and q2 weeks Ketamine infusion, etiology thought to be idiopathic vs EtOH related, did have elevated IgG4 levels but on EUS not consistent w/ AIP) who has been admitted to [facility] on 11/11/23 for abdominal pain. Recent imaging via MRI/MRCP on 11/09/23 suggestive of enlarging pancreatic pseudocyst (10 cm) concerning for possible symptomatic cyst. Plan for EUS-guided cyst-gastrostomy on 11/14/23. #Recurrent acute on chronic pancreatitis :: Suspect her symptoms are driven by enlarging pancreatic pseudocyst in the setting of chronic pancreatitis. She may have an acute component of acute pancreatitis given elevated lipase but this is unclear. Will plan to drain cyst and monitor response EUS 11/14: Impression The esophagus appeared normal. Edematous and erythematous mucosa in the stomach. No significant extrinsic compression noted. The duodenal bulb, 1st part of the duodenum, 2nd part of the duodenum and 3rd part of the duodenum appeared normal. No stenosis visualized. A large round cyst measuring approximately 100 mm x 80 mm with debris present, was found in the area of the body of the pancreas. Therapeutic drainage performed from the gastric body using hot lumen apposing metal stent measuring 20 mm x 10 mm. Post-drainage, one 7 Fr x 4 cm double pigtail plastic stent was placed through the lumen of the prior stent. Findings The esophagus appeared normal. The exam of the esophagus is normal. There was no esophagitis, stenosis, varices or ulcers. Regular Z-line 38 cm from the incisors Edematous and erythematous mucosa in the stomach The exam of the stomach was otherwise unremarkable. There was no significant deformity from extrinsic compression. No ulcers, erosions or gastric varices. The duodenal bulb, 1st part of the duodenum, 2nd part of the duodenum and 3rd part of the duodenum appeared normal. No extrinsic compression in the examined duodenum was visualized. 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 It is not in obvious communication with the pancreatic duct. The lesion measured approximately 100 mm by 80 mm in maximal cross-sectional diameter. There was a single compartment without septae. The outer wall of the lesion was thick. There was no associated mass. There was internal debris within the fluid-filled cavity. The wall of the cyst was interrogated utilizing color Doppler imaging to identify any interposed vessels. Using the NeoCodex stent delivery system, the cavity was punctured under endosonographic guidance using cautery. The 20 mm by 10 mm dumbell shaped fully covered metal stent was then deployed under both endosonographic and fluoroscopic guidance. Stent placement was confirmed on fluoroscopy and endoscopy. There was good drainage of fluid following stent placement. The scope was withdrawn and replaced with the gastroscope. No post-stent dilation performed. Solid debris/necrosis could be seen within the cyst cavity. A 0.025 inch x 450 cm straight Visiglide wire was inserted into the WOPN under fluoroscopic guidance and allowed to coil multiple times. Due to the amount of debris within the cyst, an anchoring 7 Fr by 4 cm zimmon double pigtail stent was placed into the cyst cavity through the AXIOS stent using a stent introducer set. The stent was successfully placed. Recommendations: - hold hep ggt until tomorrow morning - Defer resumption of diet and medications to the patient's primary team. No restrictions from a post-procedural standpoint. - Watch for bleeding, perforation, and infection. - Will plan for repeat EGD in 2-3 weeks for stent removal and cyst reassessment which may require direct endoscopic necrosectomy. Will order for pre-procedure imaging. - Low fat diet - Continue home Creon Patient seen and discussed with attending, Dr. Agrawal. Nadia Weaver, GI fellow Thank you for the consultation. Gastroenterology will continue to the follow the patient. Please do not hesitate to contact me on DocHalo or page [phone] if there are any further questions between the weekday hours of 7 AM - 5 PM. If there is an urgent concern during the weekend, after-hours, or holidays; [place] [phone]. Thank you. SIGNATURE: Nadia Weaver MD PATIENT NAME: Dorothea Rutledge DATE: November 14, 2023 Associated attestation - Nancy Agrawal MD - 11/15/2023 5:12 AM EST I saw and evaluated the patient. I personally obtained the denise and critical portions of the history and physical exam or was physically present for denise and critical portions performed by the resident/fellow. I reviewed the resident/fellow's documentation and discussed the patient with the resident/fellow. I agree with the resident/fellow's medical decision making as documented in the note. Gastroenterology Consult Service Progress Note Department of Gastroenterology & Hepatology [facility] November 13, 2023 Patient: Dorothea Rutledge Medical Record: [id number] Reason for Initial Consult: pancreatic pseudocyst Requesting Service: hospital medicine Interval History: tolerating diet well. HDS. Dialudid 1 mg q4h. On heparin ggt. No xarelto since 11/10. Physical Exam: Vitals: 11/13/23 0022 11/13/23 0434 11/13/23 0548 11/13/23 0926 BP: 119/68 (!) 113/7 128/83 Pulse: 89 90 101 Resp: 18 18 Temp: 36.6 C (97.9 F) 36.6 C (97.9 F) TempSrc: SpO2: 98% 93% Weight: 106 kg (233 lb 11 oz) Height: Intake/Output Summary (Last 24 hours) at 11/13/2023 1148 Last data filed at 11/13/2023 0233 Gross per 24 hour Intake 157.87 ml Output -- Net 157.87 ml Alert and oriented x 3 CTAB RRR Abd soft, ND, TTP on epigastric region Skin warm and dry Labs: Lab Results Component Value Date WBC 5.9 11/13/2023 HGB 10.9 (L) 11/13/2023 HCT 35.0 (L) 11/13/2023 MCV 93 11/13/2023 PLT 281 11/13/2023 Lab Results Component Value Date GLUCOSE 202 (H) 11/13/2023 CALCIUM 9.6 11/13/2023 NA 136 11/13/2023 K 3.4 (L) 11/13/2023 CO2 28 11/13/2023 CL 95 (L) 11/13/2023 BUN 12 11/13/2023 CREATININE 0.75 11/13/2023 Lab Results Component Value Date INR 1.2 (H) 11/11/2023 INR 1.1 05/14/2023 INR 1.2 (H) 04/26/2023 PROTIME 13.6 (H) 11/11/2023 PROTIME 12.7 05/14/2023 PROTIME 13.3 (H) 04/26/2023 Imaging: === 11/10/23 === CT ABDOMEN PELVIS W IV CONTRAST - Impression - 1. Similar size and morphology of large loculated pancreatic pseudocyst centered within the pancreatic head and uncinate process when compared to MRCP from 11/09/2023 but enlarged when compared to prior CT of the abdomen and pelvis from 06/15/2023 as described in detail above. 2. Vague fat stranding and mesenteric edema surrounds the pancreatic head and uncinate process which may represent component of acute on chronic pancreatitis. 3. Minimal ductal dilatation in the pancreatic tail similar to recent MRCP. 4. Hepatic steatosis and hepatomegaly. 5. Additional findings as above. === 11/09/23 === MR MRCP WITH PANCREAS WO AND W CONTRAST - Impression - Increase in size of pancreatic cyst involving the head/body, suggestive of a pseudocyst in a patient with prior pancreatitis. There is main pancreatic ductal dilatation in the tail likely postobstructive in nature, with parenchymal atrophy. Hepatomegaly and hepatic steatosis. Stable subcentimeter enhancing lesion segment VIII of the liver. Signed by: Shelli Paris 11/09/2023 3:51 PM Dictation workstation: [id number] GI procedures: 03/2016 Cscope Cecum: Normal. Ascending: Normal Transverse: Normal Descending:Normal Sigmoid: Normal Rectum: Normal Retroflexed views: Grade II internal hemorrhoids ERCP 2017 (elevated Lft, c/f choledocho) Impression: - The major papilla appeared normal. - The upper third of the main bile duct and middle third of the main bile duct were mildly dilated. - The patient has had a cholecystectomy. - A biliary sphincterotomy was performed. - The biliary tree was swept and nothing was found. Recommendation: - [facility] care. EUS 03/2023 Impression: - Normal area of the papilla. - Acute on Chronic pancreatitis - A 40 mm pseudocyst was seen in the pancreatic head. Tissue has not been obtained. However, the endosonographic appearance is suggestive of a pancreatic pseudocyst. - No specimens collected. Assessment and Plan: Dorothea Rutledge is a 47 y.o. female with a past medical history of factor V Leiden on xarelto, seizures, anxiety, depression and chronic abdominal pain 2/2 recurrent acute on chronic pancreatitis (on Creon and q2 weeks Ketamine infusion) who has been admitted to [facility] on 11/11/23 for abdominal pain. Recent imaging via MRI/MRCP on 11/09/23 suggestive of enlarging pancreatic pseudocyst (10 cm) concerning for possible symptomatic cyst. Plan for EUS-guided cyst-gastrostomy on 11/14/23. #Recurrent acute on chronic pancreatitis :: Suspect her symptoms are driven by enlarging pancreatic pseudocyst in the setting of chronic pancreatitis. She may have an acute component of acute pancreatitis given elevated lipase but this is unclear. Will plan to drain cyst and monitor response Recommendations: - continue to hold Xarelto. Hold heparin ggt at 4 AM on 11/14/23 - NPO at MN on 11/13/23 - Plan for EUS guided cyst-gastrostomy on 11/14/23 - Low fat diet - Continue home Creon Patient seen and discussed with attending, Dr. Agrawal. Nadia Weaver, GI fellow Thank you for the consultation. Gastroenterology will continue to the follow the patient. Please do not hesitate to contact me on DocHalo or page [phone] if there are any further questions between the weekday hours of 7 AM - 5 PM. If there is an urgent concern during the weekend, after-hours, or holidays; then [place] [phone]. Thank you. SIGNATURE: Nadia Weaver MD PATIENT NAME: Dorothea Rutledge DATE: November 13, 2023 Associated attestation - Nancy Agrawal MD - 11/13/2023 3:30 PM EST I saw and evaluated the patient. I personally obtained the denise and critical portions of the history and physical exam or was physically present for denise and critical portions performed by the resident/fellow. I reviewed the resident/fellow's documentation and discussed the patient with the resident/fellow. I agree with the resident/fellow's medical decision making as documented in the note. Dorothea Rutledge is a 47 y.o. female on day 3 of admission presenting with Pseudocyst of pancreas. Subjective No events over night. Reporting abdominal pain, Asking for adjusting dose of home meds. Objective Physical Exam HENT: Head: Normocephalic. Nose: Nose normal. Eyes: Extraocular Movements: Extraocular movements intact. Pupils: Pupils are equal, round, and reactive to light. Cardiovascular: Rate and Rhythm: Normal rate. Heart sounds: Normal heart sounds. No murmur heard. Pulmonary: Effort: No respiratory distress. Breath sounds: Normal breath sounds. No wheezing. Abdominal: General: Bowel sounds are normal. There is no distension. Palpations: Abdomen is soft. Comments: Mild epigastric tenderness Musculoskeletal: General: Normal range of motion. Cervical back: Normal range of motion. Skin: General: Skin is warm. Neurological: General: No focal deficit present. Mental Status: She is alert. Psychiatric: Mood and Affect: Mood normal. Last Recorded Vitals Blood pressure 128/83, pulse 101, temperature 36.6 C (97.9 F), resp. rate 18, height 1.6 m (5' 3 ), weight 106 kg (233 lb 11 oz), SpO2 93 %. Intake/Output last 3 Shifts: I/O last 3 completed shifts: In: 278.7 (2.6 mL/kg) [I.V.:278.7 (2.6 mL/kg)] Out: - (0 mL/kg) Weight: 106 kg Relevant Results Scheduled medications ARIPiprazole, 10 mg, oral, Daily benztropine, 0.5 mg, oral, BID divalproex, 250 mg, oral, BID fenofibrate, 160 mg, oral, Daily furosemide, 40 mg, oral, Daily insulin lispro, 0-5 Units, subcutaneous, q4h metoprolol succinate XL, 25 mg, oral, Daily nystatin, 1 Application, Topical, BID pancrelipase ([id number]), 2 capsule, oral, TID with meals pantoprazole, 40 mg, intravenous, Daily potassium chloride CR, 20 mEq, oral, BID [Held by provider] rivaroxaban, 10 mg, oral, Daily with evening meal valACYclovir, 500 mg, oral, Daily [START ON 11/14/2023] venlafaxine XR, 225 mg, oral, Daily with breakfast Continuous medications heparin, 0-4,000 Units/hr, Last Rate: 16 Units/hr (11/13/23 0552) PRN medications PRN medications: acetaminophen, dextrose 10 % in water (D10W), dextrose, diphenhydrAMINE, glucagon, HYDROmorphone, melatonin, nicotine polacrilex, ondansetron ODT OR ondansetron, polyethylene glycol Results for orders placed or performed during the hospital encounter of 11/10/23 (from the past 24 hour(s)) Urinalysis with Reflex Culture and Microscopic Result Value Ref Range Color, Urine Light-Yellow Light-Yellow, Yellow, Dark-Yellow Appearance, Urine Clear Clear Specific [place], Urine 1.008 1.005 - 1.035 pH, Urine 7.0 5.0, 5.5, 6.0, 6.5, 7.0, 7.5, 8.0 Protein, Urine NEGATIVE NEGATIVE, 10 (TRACE), 20 (TRACE) mg/dL Glucose, Urine 70 (1+) (A) Normal mg/dL Blood, Urine NEGATIVE NEGATIVE Ketones, Urine NEGATIVE NEGATIVE mg/dL Bilirubin, Urine NEGATIVE NEGATIVE Urobilinogen, Urine Normal Normal mg/dL Nitrite, Urine NEGATIVE NEGATIVE Leukocyte Esterase, Urine NEGATIVE NEGATIVE Extra Urine [place] Tube Result Value Ref Range Extra Tube Hold for add-ons. Heparin Assay, UFH Result Value Ref Range Heparin Unfractionated 0.2 See Comment Below for Therapeutic Ranges IU/mL POCT GLUCOSE Result Value Ref Range POCT Glucose 294 (H) 74 - 99 mg/dL POCT GLUCOSE Result Value Ref Range POCT Glucose 229 (H) 74 - 99 mg/dL Heparin Assay, UFH Result Value Ref Range Heparin Unfractionated 0.4 See Comment Below for Therapeutic Ranges IU/mL CBC and Auto Differential Result Value Ref Range WBC 5.9 4.4 - 11.3 x10*3/uL nRBC 0.0 0.0 - 0.0 /100 WBCs RBC 3.75 (L) 4.00 - 5.20 x10*6/uL Hemoglobin 10.9 (L) 12.0 - 16.0 g/dL Hematocrit 35.0 (L) 36.0 - 46.0 % MCV 93 80 - 100 fL MCH 29.1 26.0 - 34.0 pg MCHC 31.1 (L) 32.0 - 36.0 g/dL RDW 14.1 11.5 - 14.5 % Platelets 281 150 - 450 x10*3/uL Neutrophils % 56.1 40.0 - 80.0 % Immature Granulocytes %, Automated 0.5 0.0 - 0.9 % Lymphocytes % 28.7 13.0 - 44.0 % Monocytes % 8.3 2.0 - 10.0 % Eosinophils % 5.6 0.0 - 6.0 % Basophils % 0.8 0.0 - 2.0 % Neutrophils Absolute 3.32 1.20 - 7.70 x10*3/uL Immature Granulocytes Absolute, Automated 0.03 0.00 - 0.70 x10*3/uL Lymphocytes Absolute 1.70 1.20 - 4.80 x10*3/uL Monocytes Absolute 0.49 0.10 - 1.00 x10*3/uL Eosinophils Absolute 0.33 0.00 - 0.70 x10*3/uL Basophils Absolute 0.05 0.00 - 0.10 x10*3/uL Heparin Assay, UFH Result Value Ref Range Heparin Unfractionated 0.4 See Comment Below for Therapeutic Ranges IU/mL POCT GLUCOSE Result Value Ref Range POCT Glucose 210 (H) 74 - 99 mg/dL Renal Function Panel Result Value Ref Range Glucose 202 (H) 74 - 99 mg/dL Sodium 136 136 - 145 mmol/L Potassium 3.4 (L) 3.5 - 5.3 mmol/L Chloride 95 (L) 98 - 107 mmol/L Bicarbonate 28 21 - 32 mmol/L Anion Gap 16 10 - 20 mmol/L Urea Nitrogen 12 6 - 23 mg/dL Creatinine 0.75 0.50 - 1.05 mg/dL eGFR >90 >60 mL/min/1.73m*2 Calcium 9.6 8.6 - 10.6 mg/dL Phosphorus 4.3 2.5 - 4.9 mg/dL Albumin 3.9 3.4 - 5.0 g/dL Magnesium Result Value Ref Range Magnesium 1.93 1.60 - 2.40 mg/dL POCT GLUCOSE Result Value Ref Range POCT Glucose 247 (H) 74 - 99 mg/dL POCT GLUCOSE Result Value Ref Range POCT Glucose 255 (H) 74 - 99 mg/dL Assessment/Plan Principal Problem: Pseudocyst of pancreas Dorothea Rutledge is a 47 year old female with a PMH of factor V Leiden on Xarelto, HTN, T2DM, chronic pancreatitis (on Ketamine 30mg/Propofol 100mg infusions last dose 11/09/2023), necrotizing pancreatitis, pancreatic pseudocyst, and opioid dependence admitted for abdominal pain and diagnosed with 10 cm pseudocyst. She is waiting for GI procedure cystogastrostomy. Abdominal pain 2/2 to pancreatic pseudocyst Pain is controlled at this time Patient is tolerating diet GI consulted, planning for procedure on 12/12/22 NPO after midnight, Factor V leiden/Recurrent DVT's Continue heparin drip for now Continue to hold eliquis Sinus tachycardia Resolved Prophylaxis Patient is on heparin drip due to hx of recurrent DVT's Disposition: Patient presented for abdominal pain and was found to have 10 cm pseudocyst. Pending procedure on Tuesday with GI for drainage. Personally reviewed prior inpatient records available, labs, imaging, and managed services consultant notes. Personally discussed with nursing staff and transitional youth care professional. Current work up, and treatment and discharge plan is discussed with the patient and counselling is provided. Repeat labs are ordered as needed. Chastity León MD Dorothea Rutledge is a 47 y.o. female on day 2 of admission presenting with Pseudocyst of pancreas. Subjective Patient was seen and examined at bedside. Patient reported some discomfort while urinating. Pain is controlled. Objective Physical Exam Constitutional: lying in bed with no distress HEENT: Moist oral mucosa Neck: No JVD Lungs: Clear to auscultation bilaterally, no wheezing, no ronchi Abdomen: bowel sounds present Ext: trace pitting edema bilaterally Last Recorded Vitals Blood pressure 115/67, pulse 98, temperature 36.3 C (97.3 F), resp. rate 18, height 1.6 m (5' 3 ), weight 104 kg (230 lb), SpO2 95 %. Intake/Output last 3 Shifts: I/O last 3 completed shifts: In: 120.8 (1.2 mL/kg) [I.V.:120.8 (1.2 mL/kg)] Out: - (0 mL/kg) Weight: 104.3 kg Relevant Results Scheduled medications ARIPiprazole, 10 mg, oral, Daily benztropine, 0.5 mg, oral, BID divalproex, 250 mg, oral, BID fenofibrate, 160 mg, oral, Daily furosemide, 40 mg, oral, Daily insulin lispro, 0-5 Units, subcutaneous, q4h metoprolol succinate XL, 25 mg, oral, Daily nystatin, 1 Application, Topical, BID pancrelipase ([id number]), 2 capsule, oral, TID with meals pantoprazole, 40 mg, intravenous, Daily potassium chloride CR, 20 mEq, oral, Daily [Held by provider] rivaroxaban, 10 mg, oral, Daily with evening meal valACYclovir, 500 mg, oral, Daily venlafaxine XR, 75 mg, oral, Daily with breakfast Continuous medications heparin, 0-4,000 Units/hr, Last Rate: 1,400 Units/hr (11/12/23 0542) PRN medications PRN medications: acetaminophen, dextrose 10 % in water (D10W), dextrose, diphenhydrAMINE, glucagon, HYDROmorphone, melatonin, nicotine polacrilex, ondansetron ODT OR ondansetron, polyethylene glycol Assessment/Plan Dorothea Rutledge is a 47 y.o. female with a past medical history of factor V Leiden on Xarelto, HTN, T2DM, chronic pancreatitis (on Ketamine 30mg/Propofol 100mg infusions last dose 11/09/2023), necrotizing pancreatitis, pancreatic pseudocyst, and opioid dependence admitted for abdominal pain and 10 cm pseudocyst PLAN: Abdominal pain 2/2 to pancreatic pseudocyst 1. Pain is controlled at this time 2. Patient is tolerating diet 3. GI consulted for procedure on 12/11/22 2. Factor V leiden/Recurrent DVT's 1. Continue heparin drip for now 2. Continue to hold eliquis 3. Sinus tachycardia 1. Resolved 4. Prophylaxis 1. Patient is on heparin drip due to hx of recurrent DVT's Disposition: Patient presented for abdominal pain and was found to have 10 cm pseudocyst. Pending procedure on Tuesday with GI for drainage. Anticipated discharge > 2 days I spent 35 minutes in the professional and overall care of this patient. Adelina Og DO Gastroenterology Consult Service Progress Note Department of Gastroenterology & Hepatology [facility] November 12, 2023 Patient: Dorothea Rutledge Medical Record: [id number] Reason for Initial Consult: pancreatic pseudocyst Requesting Service: hospital medicine Interval History: tolerating diet well. HDS. Dialudid 1 mg q4h. On heparin ggt. No xarelto since 11/10. Physical Exam: Vitals: 11/11/23 2057 11/11/23 2214 11/12/23 0028 11/12/23 0429 BP: 138/82 144/80 114/79 BP Location: Patient Position: Pulse: 91 93 95 89 Resp: 18 16 18 17 Temp: 36.6 C (97.9 F) 36.3 C (97.3 F) 36.5 C (97.7 F) TempSrc: SpO2: 95% 97% 95% 95% Weight: Height: Intake/Output Summary (Last 24 hours) at 11/12/2023 0644 Last data filed at 11/12/2023 0346 Gross per 24 hour Intake 120.83 ml Output -- Net 120.83 ml Alert and oriented x 3 CTAB RRR Abd soft, ND, TTP on epigastric region Skin warm and dry Labs: Lab Results Component Value Date WBC 5.3 11/12/2023 HGB 11.1 (L) 11/12/2023 HCT 35.0 (L) 11/12/2023 MCV 91 11/12/2023 PLT 255 11/12/2023 Lab Results Component Value Date GLUCOSE 205 (H) 11/12/2023 CALCIUM 8.8 11/12/2023 NA 136 11/12/2023 K 3.6 11/12/2023 CO2 26 11/12/2023 CL 98 11/12/2023 BUN 9 11/12/2023 CREATININE 0.68 11/12/2023 Lab Results Component Value Date INR 1.2 (H) 11/11/2023 INR 1.1 05/14/2023 INR 1.2 (H) 04/26/2023 PROTIME 13.6 (H) 11/11/2023 PROTIME 12.7 05/14/2023 PROTIME 13.3 (H) 04/26/2023 Imaging: === 11/10/23 === CT ABDOMEN PELVIS W IV CONTRAST - Impression - 1. Similar size and morphology of large loculated pancreatic pseudocyst centered within the pancreatic head and uncinate process when compared to MRCP from 11/09/2023 but enlarged when compared to prior CT of the abdomen and pelvis from 06/15/2023 as described in detail above. 2. Vague fat stranding and mesenteric edema surrounds the pancreatic head and uncinate process which may represent component of acute on chronic pancreatitis. 3. Minimal ductal dilatation in the pancreatic tail similar to recent MRCP. 4. Hepatic steatosis and hepatomegaly. 5. Additional findings as above. === 11/09/23 === MR MRCP WITH PANCREAS WO AND W CONTRAST - Impression - Increase in size of pancreatic cyst involving the head/body, suggestive of a pseudocyst in a patient with prior pancreatitis. There is main pancreatic ductal dilatation in the tail likely postobstructive in nature, with parenchymal atrophy. Hepatomegaly and hepatic steatosis. Stable subcentimeter enhancing lesion segment VIII of the liver. Signed by: Shelli Paris 11/09/2023 3:51 PM Dictation workstation: [id number] GI procedures: 03/2016 Cscope Cecum: Normal. Ascending: Normal Transverse: Normal Descending:Normal Sigmoid: Normal Rectum: Normal Retroflexed views: Grade II internal hemorrhoids ERCP 2017 (elevated Lft, c/f choledocho) Impression: - The major papilla appeared normal. - The upper third of the main bile duct and middle third of the main bile duct were mildly dilated. - The patient has had a cholecystectomy. - A biliary sphincterotomy was performed. - The biliary tree was swept and nothing was found. Recommendation: - [facility] to [facility] for [facility] care. EUS 03/2023 Impression: - Normal area of the papilla. - Acute on Chronic pancreatitis - A 40 mm pseudocyst was seen in the pancreatic head. Tissue has not been obtained. However, the endosonographic appearance is suggestive of a pancreatic pseudocyst. - No specimens collected. Assessment and Plan: Dorothea Rutledge is a 47 y.o. female with a past medical history of factor V Leiden on xarelto, seizures, anxiety, depression and chronic abdominal pain 2/2 recurrent acute on chronic pancreatitis (on Creon and q2 weeks Ketamine infusion) who has been admitted to [facility] ED on 11/11/23 for abdominal pain. Recent imaging via MRI/MRCP on 11/09/23 suggestive of enlarging pancreatic pseudocyst (10 cm) concerning for possible symptomatic cyst. Plan for EUS-guided cyst-gastrostomy on 11/14/23. #Recurrent acute on chronic pancreatitis :: Suspect her symptoms are driven by enlarging pancreatic pseudocyst in the setting of chronic pancreatitis. She may have an acute component of acute pancreatitis given elevated lipase but this is unclear. Will plan to drain cyst and monitor response Recommendations: - continue to hold Xarelto. Hold heparin ggt at 4 AM on 11/14/23 - NPO at [facility] on 11/13/23 - Plan for EUS guided cyst-gastrostomy on 11/14/23 - Low fat diet - Continue home Creon Patient seen and discussed with attending, Dr. Agrawal. Nadia Weaver, GI fellow Thank you for the consultation. Gastroenterology will continue to the follow the patient. Please do not hesitate to contact me on DocHalo or page [phone] if there are any further questions between the weekday hours of 7 AM - 5 PM. If there is an urgent concern during the weekend, after-hours, or holidays; [place] [phone]. Thank you. SIGNATURE: Nadia Weaver MD PATIENT NAME: Dorothea Rutledge DATE: November 12, 2023 Dorothea Rutledge is a 47 y.o. female on day 1 of admission presenting with Pseudocyst of pancreas. Subjective Patient was seen and examined at bedside. She reported 10/10 pain in the center radiating towards her right back. She was able to tolerate her diet Objective Physical Exam Constitutional: lying in bed with no distress HEENT: Moist oral mucosa Neck: No JVD Lungs: Clear to auscultation bilaterally, no wheezing, no ronchi Abdomen: bowel sounds present Ext: trace pitting edema bilaterally Last Recorded Vitals Blood pressure 124/80, pulse 93, temperature 36.5 C (97.7 F), temperature source Temporal, resp. rate 18, height 1.6 m (5' 3 ), weight 104 kg (230 lb), SpO2 (!) 90 %. Intake/Output last 3 Shifts: No intake/output data recorded. Relevant Results Scheduled medications ARIPiprazole, 10 mg, oral, Daily benztropine, 0.5 mg, oral, BID divalproex, 250 mg, oral, BID fenofibrate, 160 mg, oral, Daily furosemide, 40 mg, oral, Daily insulin lispro, 0-5 Units, subcutaneous, q4h metoprolol succinate XL, 25 mg, oral, Daily pancrelipase (Utt-[id number]), 2 capsule, oral, TID with meals pantoprazole, 40 mg, intravenous, Daily potassium chloride CR, 20 mEq, oral, Daily rivaroxaban, 10 mg, oral, Daily with evening meal valACYclovir, 500 mg, oral, Daily venlafaxine XR, 75 mg, oral, Daily with breakfast Continuous medications lactated Ringer's, 150 mL/hr, Last Rate: 150 mL/hr (11/11/23 1300) PRN medications PRN medications: acetaminophen, dextrose 10 % in water (D10W), dextrose, diphenhydrAMINE, glucagon, heparin lock flush (porcine), HYDROmorphone, melatonin, nicotine polacrilex, ondansetron ODT OR ondansetron, polyethylene glycol Assessment/Plan Dorothea Rutledge is a 47 y.o. female with a past medical history of factor V Leiden on Xarelto, HTN, T2DM, chronic pancreatitis (on Ketamine 30mg/Propofol 100mg infusions last dose 11/09/2023), necrotizing pancreatitis, pancreatic pseudocyst, and opioid dependence admitted for abdominal pain and 10 cm pseudocyst PLAN: Abdominal pain 2/2 to pancreatic pseudocyst 1. Pain is controlled at this time 2. Patient is tolerating diet 3. GI consulted for procedure on 12/11/22 2. Factor V leiden/Recurrent DVT's 1. Start heparin drip 2. Continue to hold eliquis 3. Sinus tachycardia 1. Resolved 4. Prophylaxis 1. Patient is on heparin drip due to hx of recurrent DVT's Disposition: Patient presented for abdominal pain and was found to have 10 cm pseudocyst. Pending procedure on Tuesday with GI for drainage. Anticipated discharge > 2 days I spent 35 minutes in the professional and overall care of this patient. Adelina Og DO documented in this encounter [facility] Work Phone: 11-14-2023 Plan of care note Problem: Pain Goal: My pain/discomfort is manageable Outcome: Progressing Problem: Daily Care Goal: Daily care needs are met Outcome: Progressing Problem: Psychosocial Needs Goal: Demonstrates ability to cope with hospitalization/illness Outcome: Progressing Goal: Collaborate with me, my family, and caregiver to identify my specific goals Outcome: Progressing Problem: Discharge Barriers Goal: My discharge needs are met Outcome: Progressing The patient's goals for the shift include The clinical goals for the shift include Pt will have no nausea/cramps complaints by the end of shift Over the shift, the patient did not make progress toward the following goals. Barriers to progression include disease process. Recommendations to address these barriers include follow med recommendations. [facility] 11-14-2023 Miscellaneous Notes Problem: Pain Goal: My pain/discomfort is manageable Outcome: Progressing Problem: Daily Care Goal: Daily care needs are met Outcome: Progressing Problem: Psychosocial Needs Goal: Demonstrates ability to cope with hospitalization/illness Outcome: Progressing Goal: Collaborate with me, my family, and caregiver to identify my specific goals Outcome: Progressing Problem: Discharge Barriers Goal: My discharge needs are met Outcome: Progressing The patient's goals for the shift include The clinical goals for the shift include Pt will have no nausea/cramps complaints by the end of shift Over the shift, the patient did not make progress toward the following goals. Barriers to progression include disease process. Recommendations to address these barriers include follow med recommendations. Pt discharged back to floor in stable condition Report called to Cherry VILLANUEVA, LKSD 60 The patient's goals for the shift include completion of endoscopy. The clinical goals for the shift include pt will have rate pain <4 by the end of shift Problem: Pain Goal: My pain/discomfort is manageable Outcome: Progressing Problem: Safety Goal: Patient will be injury free during hospitalization Outcome: Progressing Problem: Daily Care Goal: Daily care needs are met Outcome: Progressing Problem: Psychosocial Needs Goal: Demonstrates ability to cope with hospitalization/illness Outcome: Progressing Problem: Pain - Adult Goal: Verbalizes/displays adequate comfort level or baseline comfort level Outcome: Progressing The patient's goals for the shift include The clinical goals for the shift include patient will be without full during shift Problem: Pain Goal: My pain/discomfort is manageable Outcome: Progressing Problem: Daily Care Goal: Daily care needs are met Outcome: Progressing Problem: Psychosocial Needs Goal: Demonstrates ability to cope with hospitalization/illness Outcome: Progressing Goal: Collaborate with me, my family, and caregiver to identify my specific goals Outcome: Progressing Problem: Discharge Barriers Goal: My discharge needs are met Outcome: Progressing The patient's goals for the shift include The clinical goals for the shift include pt will have BS WNL by the end of shift Over the shift, the patient did not make progress toward the following goals. Barriers to progression include disease process. Recommendations to address these barriers include BS monitoring. The patient's goals for the shift include pain control The clinical goals for the shift include drink liquids Problem: Pain Goal: My pain/discomfort is manageable Outcome: Progressing Problem: Safety Goal: Patient will be injury free during hospitalization Outcome: Progressing Goal: I will remain free of falls Outcome: Progressing Problem: Daily Care Goal: Daily care needs are met Outcome: Progressing Problem: Psychosocial Needs Goal: Demonstrates ability to cope with hospitalization/illness Outcome: Progressing Goal: Collaborate with me, my family, and caregiver to identify my specific goals Outcome: Progressing The patient's goals for the shift include The clinical goals for the shift include Over the shift, the patient did not make progress toward the following goals. Barriers to progression include . Recommendations to address these barriers include . documented in this encounter [facility] Work Phone: 11-14-2023 Nurse Note 11/14/2023 Nursing Note: TO GI lab at 8am for endoscopy. Returned to division at 1400, Rating pain 10/10 from all the air that was placed. Diet placed for full liquids. C/o nausea with no emesis. Able to consume a variety of liquids over a few hours. Placed back on tele. Repeat K was 3.8. [facility] 11-14-2023 Nurse Note 11/14/2023 Nursing Note: TO GI lab at 8am for endoscopy. Returned to division at 1400, Rating pain 10/10 from all the air that was placed. Diet placed for full liquids. C/o nausea with no emesis. Able to consume a variety of liquids over a few hours. Placed back on tele. Repeat K was 3.8. Admission note. Patient admitted to [facility] 60 documented in this encounter [facility] Work Phone: 11-14-2023 Note Formatting of this n ote might be different from the original. Pt discharged back to floor in stable condition [facility] 11-14-2023 Note Formatting of this n ote might be different from the original. Report called to Cherry VILLANUEVA, LKSD 60 [facility] Work Phone: 11-14-2023 Plan of care note The patient's goals for the shift include completion of endoscopy. The clinical goals for the shift include pt will have rate pain <4 by the end of shift [facility] Work Phone: 11-13-2023 Plan of care note Problem: Pain Goal: My pain/discomfort is manageable Outcome: Progressing Problem: Safety Goal: Patient will be injury free during hospitalization Outcome: Progressing Problem: Daily Care Goal: Daily care needs are met Outcome: Progressing Problem: Psychosocial Needs Goal: Demonstrates ability to cope with hospitalization/illness Outcome: Progressing Problem: Pain - Adult Goal: Verbalizes/displays adequate comfort level or baseline comfort level Outcome: Progressing The patient's goals for the shift include The clinical goals for the shift include patient will be without full during shift [facility] 11-13-2023 Plan of care note Problem: Pain Goal: My pain/discomfort is manageable Outcome: Progressing Problem: Daily Care Goal: Daily care needs are met Outcome: Progressing Problem: Psychosocial Needs Goal: Demonstrates ability to cope with hospitalization/illness Outcome: Progressing Goal: Collaborate with me, my family, and caregiver to identify my specific goals Outcome: Progressing Problem: Discharge Barriers Goal: My discharge needs are met Outcome: Progressing The patient's goals for the shift include The clinical goals for the shift include pt will have BS WNL by the end of shift Over the shift, the patient did not make progress toward the following goals. Barriers to progression include disease process. Recommendations to address these barriers include BS monitoring. [facility] Work Phone: 11-12-2023 Plan of care note The patient's goals for the shift include pain control The clinical goals for the shift include drink liquids Problem: Pain Goal: My pain/discomfort is manageable Outcome: Progressing Problem: Safety Goal: Patient will be injury free during hospitalization Outcome: Progressing Goal: I will remain free of falls Outcome: Progressing Problem: Daily Care Goal: Daily care needs are met Outcome: Progressing Problem: Psychosocial Needs Goal: Demonstrates ability to cope with hospitalization/illness Outcome: Progressing Goal: Collaborate with me, my family, and caregiver to identify my specific goals Outcome: Progressing [facility] 11-11-2023 Nurse Note Admission note. Patient admitted to [facility] 60 [facility] Work Phone: 11-11-2023 Plan of care note The patient's goals for the shift include The clinical goals for the shift include Over the shift, the patient did not make progress toward the following goals. Barriers to progression include . Recommendations to address these barriers include . [facility] Work Phone: 11-11-2023 Consult note Associated Order (s): IP CONSULT TO GASTROENTEROLOGY [facility] INITIAL CONSULT NOTE Source of Information: The source of the history was patient Consult requested by: Service: Hospital Medicine Reason for Consult: Pancreatic Pseudocyst Admission Chief Complaint: Abdominal pain SUBJECTIVE HPI: Dorothea Rutledge is a 47 y.o. female with a past medical history of factor V Leiden on xarelto, seizures, anxiety, depression and recurrent pancreatitis who has been admitted to [facility] ED on 11/11/23 for abdominal pain. GI consulted for possible pancreatic cyst drainage. Briefly, patient has been having episodes of yearly pancreatitis since 2013, which have all been mild. However, on 01/2023, she had an episode of severe pancreatitis that was initially managed supportively and subsequently found to have necrotizing pancreatitis at [facility]. Patient was transferred from [facility] in March for worsening symptoms of abdominal pain and abnormal imaging of her pancreas including fluid collections and edema. An IgG4 level was mildly elevated at 110. The patient is status post cholecystectomy in the past patient had noted ongoing pain and CT scan had revealed a 3 cm fluid collection near the head of the pancreas as well as necrotic fluid collection in that area as well. Her bile duct has been noted to be 1.3 cm and there is evidence of hepatomegaly on imaging. She did undergo an endoscopic ultrasound during her admission on 04/06/23 which confirmed these findings did not reveal any other pathology. Findings were not thought to be consistent with an autoimmune pancreatitis. She has had mild elevations of her lipase. She has been to the emergency room a number of times since her hospitalization for pain control. She was admitted twice in April for symptoms of abdominal pain and for pain control. She has also had several ED visits for chronic pain management. There had been concern for opioid dependence given high OAARS score of 610 (500 narcotics, 681 sedatives). There were 71 entries from prescription from 21 providers, filled at 7 different pharmacies. She has been established with Dr Hicks in the outpatient setting and it has been difficult to ascertain the etiology of her pain given hx of narcotic abuse. Repeat IgG4 levels were 229, but underlying etiology of her pancreatitis remains unclear. She has been established with pain management and had multiple ketamine infusion which gives her relief for around 1.5 weeks and has reduced number of ED visits/hospitalizations. Nevertheless, a repeat MRCP done on 11/09/23 demonstrated increasing pancreatic cyst size (now measuring 10 x 6.4, compared to 4.6 x 7.3 cm) involving the head/body with main PD dilatation in the tail. On 11/10, she developed recurrent intense abdominal pain prompting ED visit. Repeat CT in the ED with no acute changes compared to MRCP done the day before. At bedside, patient reports that her ketamine infusions have really helped her reduce ED visits and hospitalization for her chronic pain. Over the last 3 months, she thinks she has had around 3 ED visits for recurrent pain. The effect of ketamine usually wears off after 1.5 - 2 weeks. Her last ketamine infusion was on 11/09/23. She had acute onset symptoms on 11/10/23 prompting current visit. Reports it was atypical for symptoms to occur within 24 hours of infusion. Endorses chronic post prandial abdominal pain, nausea and early satiety. Endorses diarrhea every other day which is described as loose, malodorous and with oil droplets. ROS: Complete review of systems obtained, negative unless otherwise indicated above. GI Hx: 03/2016 Cscope Cecum: Normal. Ascending: Normal Transverse: Normal Descending:Normal Sigmoid: Normal Rectum: Normal Retroflexed views: Grade II internal hemorrhoids ERCP 2017 (elevated Lft, c/f choledocho) Impression: - The major papilla appeared normal. - The upper third of the main bile duct and middle third of the main bile duct were mildly dilated. - The patient has had a cholecystectomy. - A biliary sphincterotomy was performed. - The biliary tree was swept and nothing was found. Recommendation: - Return patient to [facility] for ongoing care. EUS 03/2023 Impression: - Normal area of the papilla. - Acute on Chronic pancreatitis - A 40 mm pseudocyst was seen in the pancreatic head. Tissue has not been obtained. However, the endosonographic appearance is suggestive of a pancreatic pseudocyst. - No specimens collected. Allergies Allergen Reactions Gabapentin Swelling, Rash and Nausea/vomiting Replaced free text allergyReplaced free text allergy Sulfa (Sulfonamide Antibiotics) Hives, Other and Rash Topiramate Other Penicillins Rash Past Medical History: Diagnosis Date Depression Factor V Leiden ([facility]) Pancreatitis Seizure ([facility]) Stroke ([facility]) Past Surgical History: Procedure Laterality Date HYSTERECTOMY IR CVC PORT PLACEMENT 08/26/2023 IR CVC PORT PLACEMENT 08/26/2023 [facility] ANGIO MR HEAD ANGIO WO IV CONTRAST 10/16/2017 MR HEAD ANGIO WO IV CONTRAST [facility] MR NECK ANGIO WO IV CONTRAST 10/16/2017 MR NECK ANGIO WO IV CONTRAST [facility] US GUIDED PERCUTANEOUS PLACEMENT 06/08/2019 US GUIDED PERCUTANEOUS PLACEMENT [facility] Family History Problem Relation Name Age of Onset Coronary artery disease Mother Social History Social History Narrative Not on file @SOCX2@ Vapes nicotine daily around 30 ml Vapes marijuana daily No cigarette use Quit alcohol in 2013 Medications: Scheduled medications ARIPiprazole, 10 mg, oral, Daily benztropine, 0.5 mg, oral, BID divalproex, 250 mg, oral, BID fenofibrate, 160 mg, oral, Daily furosemide, 40 mg, oral, Daily insulin lispro, 0-5 Units, subcutaneous, q4h metoprolol succinate XL, 25 mg, oral, Daily pancrelipase ([id number]-[id number]-Rtgv), 2 capsule, oral, TID with meals pantoprazole, 40 mg, intravenous, Daily potassium chloride CR, 20 mEq, oral, Daily rivaroxaban, 10 mg, oral, Daily with evening meal valACYclovir, 500 mg, oral, Daily venlafaxine XR, 75 mg, oral, Daily with breakfast Continuous medications lactated Ringer's, 150 mL/hr, Last Rate: 150 mL/hr (11/11/23 0620) PRN medications PRN medications: acetaminophen, dextrose 10 % in water (D10W), dextrose, diphenhydrAMINE, glucagon, heparin lock flush (porcine), HYDROmorphone, melatonin, nicotine polacrilex, ondansetron ODT OR ondansetron, polyethylene glycol EXAM Vital signs: @[id number]@ Physical Exam Alert and oriented x 3 CTAB RRR Abd soft, ND, TTP on epigastric region Skin warm and dry DATA Labs Lab Results Component Value Date WBC 11.2 11/10/2023 WBC 10.0 08/03/2023 WBC 11.9 (H) 07/05/2023 HGB 13.1 11/10/2023 HGB 13.0 08/03/2023 HGB 15.0 07/05/2023 MCV 86 11/10/2023 MCV 95 08/03/2023 MCV 90 07/05/2023 PLT 298 11/10/2023 PLT 272 08/03/2023 PLT 531 (H) 07/05/2023 Lab Results Component Value Date GLUCOSE 171 (H) 11/10/2023 CALCIUM 9.7 11/10/2023 NA 138 11/10/2023 K 3.7 11/10/2023 CO2 22 11/10/2023 CL 101 11/10/2023 BUN 18 11/10/2023 CREATININE 0.77 11/10/2023 Lab Results Component Value Date ALT 72 (H) 11/10/2023 ALT 35 08/03/2023 ALT 44 07/05/2023 AST 51 (H) 11/10/2023 AST 32 08/03/2023 AST 33 07/05/2023 ALKPHOS 79 11/10/2023 ALKPHOS 87 08/03/2023 ALKPHOS 109 07/05/2023 BILITOT 0.4 11/10/2023 BILITOT 0.4 08/03/2023 BILITOT 0.4 07/05/2023 Imaging === 11/10/23 === CT ABDOMEN PELVIS W IV CONTRAST - Impression - 1. Similar size and morphology of large loculated pancreatic pseudocyst centered within the pancreatic head and uncinate process when compared to MRCP from 11/09/2023 but enlarged when compared to prior CT of the abdomen and pelvis from 06/15/2023 as described in detail above. 2. Vague fat stranding and mesenteric edema surrounds the pancreatic head and uncinate process which may represent component of acute on chronic pancreatitis. 3. Minimal ductal dilatation in the pancreatic tail similar to recent MRCP. 4. Hepatic steatosis and hepatomegaly. 5. Additional findings as above. I personally reviewed the images/study and I agree with the findings as stated above by resident physician, Dr. Nancy Garrido. The study was interpreted at [facility] in [facility]. MACRO: none Signed by: Marie Fisher 11/10/2023 10:20 PM Dictation workstation: [id number] GI Procedures ASSESSMENT / PLAN Assessment and Recommendations: Dorothea Rutledge is a 47 y.o. female with a past medical history of factor V Leiden on xarelto, seizures, anxiety, depression and chronic abdominal pain 2/2 recurrent acute on chronic pancreatitis (on Creon and q2 weeks Ketamine infusion) who has been admitted to [facility] ED on 11/11/23 for abdominal pain. Recent imaging via MRI/MRCP on 11/09/23 suggestive of enlarging pancreatic pseudocyst (10 cm) concerning for possible symptomatic cyst. Plan for EUS-guided cyst-gastrostomy on 11/14/23. #Recurrent acute on chronic pancreatitis :: Suspect her symptoms are driven by enlarging pancreatic pseudocyst in the setting of chronic pancreatitis. She may have an acute component of acute pancreatitis given elevated lipase but this is unclear. Will plan to drain cyst and monitor response Recommendations: - Hold Xarelto. Okay to be on heparin gtt if needed. Hold heparin gtt at 4 AM on 11/14/23 - NPO at [facility] on 11/13/23 - Plan for EUS guided cyst-gastrostomy on 11/14/23 - Low fat diet - Continue home Creon Staffed with Dr Agrawal. NERI per primary team. Brittany Ruiz MD Gastroenterology Fellow After 5PM and on Weekends, please page on-call fellow. Final recommendations pending attending attestation. Associated attestation - Nancy Agrawal MD - 11/11/2023 5:07 PM EST I saw and evaluated the patient. I personally obtained the denise and critical portions of the history and physical exam or was physically present for denise and critical portions performed by the resident/fellow. I reviewed the resident/fellow's documentation and discussed the patient with the resident/fellow. I agree with the resident/fellow's medical decision making as documented in the note. [facility] Work Phone: 11-11-2023 Consult note Associated Order (s): IP CONSULT TO GASTROENTEROLOGY [facility] [place] INITIAL CONSULT NOTE Source of Information: The source of the history was patient Consult requested by: Service: Hospital Medicine Reason for Consult: Pancreatic Pseudocyst Admission Chief Complaint: Abdominal pain SUBJECTIVE HPI: Dorothea Rutledge is a 47 y.o. female with a past medical history of factor V Leiden on xarelto, seizures, anxiety, depression and recurrent pancreatitis who has been admitted to [facility] ED on 11/11/23 for abdominal pain. GI consulted for possible pancreatic cyst drainage. Briefly, patient has been having episodes of yearly pancreatitis since 2013, which have all been mild. However, on 01/2023, she had an episode of severe pancreatitis that was initially managed supportively and subsequently found to have necrotizing pancreatitis at [facility]. Patient was transferred from [facility] in March for worsening symptoms of abdominal pain and abnormal imaging of her pancreas including fluid collections and edema. An IgG4 level was mildly elevated at 110. The patient is status post cholecystectomy in the past patient had noted ongoing pain and CT scan had revealed a 3 cm fluid collection near the head of the pancreas as well as necrotic fluid collection in that area as well. Her bile duct has been noted to be 1.3 cm and there is evidence of hepatomegaly on imaging. She did undergo an endoscopic ultrasound during her admission on 04/06/23 which confirmed these findings did not reveal any other pathology. Findings were not thought to be consistent with an autoimmune pancreatitis. She has had mild elevations of her lipase. She has been to the emergency room a number of times since her hospitalization for pain control. She was admitted twice in April for symptoms of abdominal pain and for pain control. She has also had several ED visits for chronic pain management. There had been concern for opioid dependence given high OAARS score of 610 (500 narcotics, 681 sedatives). There were 71 entries from prescription from 21 providers, filled at 7 different pharmacies. She has been established with Dr Hicks in the outpatient setting and it has been difficult to ascertain the etiology of her pain given hx of narcotic abuse. Repeat IgG4 levels were 229, but underlying etiology of her pancreatitis remains unclear. She has been established with pain management and had multiple ketamine infusion which gives her relief for around 1.5 weeks and has reduced number of ED visits/hospitalizations. Nevertheless, a repeat MRCP done on 11/09/23 demonstrated increasing pancreatic cyst size (now measuring 10 x 6.4, compared to 4.6 x 7.3 cm) involving the head/body with main PD dilatation in the tail. On 11/10, she developed recurrent intense abdominal pain prompting ED visit. Repeat CT in the ED with no acute changes compared to MRCP done the day before. At bedside, patient reports that her ketamine infusions have really helped her reduce ED visits and hospitalization for her chronic pain. Over the last 3 months, she thinks she has had around 3 ED visits for recurrent pain. The effect of ketamine usually wears off after 1.5 - 2 weeks. Her last ketamine infusion was on 11/09/23. She had acute onset symptoms on 11/10/23 prompting current visit. Reports it was atypical for symptoms to occur within 24 hours of infusion. Endorses chronic post prandial abdominal pain, nausea and early satiety. Endorses diarrhea every other day which is described as loose, malodorous and with oil droplets. ROS: Complete review of systems obtained, negative unless otherwise indicated above. GI Hx: 03/2016 Cscope Cecum: Normal. Ascending: Normal Transverse: Normal Descending:Normal Sigmoid: Normal Rectum: Normal Retroflexed views: Grade II internal hemorrhoids ERCP 2017 (elevated Lft, c/f choledocho) Impression: - The major papilla appeared normal. - The upper third of the main bile duct and middle third of the main bile duct were mildly dilated. - The patient has had a cholecystectomy. - A biliary sphincterotomy was performed. - The biliary tree was swept and nothing was found. Recommendation: - [facility] for [facility] care. EUS 03/2023 Impression: - Normal area of the papilla. - Acute on Chronic pancreatitis - A 40 mm pseudocyst was seen in the pancreatic head. Tissue has not been obtained. However, the endosonographic appearance is suggestive of a pancreatic pseudocyst. - No specimens collected. Allergies Allergen Reactions Gabapentin Swelling, Rash and Nausea/vomiting Replaced free text allergyReplaced free text allergy Sulfa (Sulfonamide Antibiotics) Hives, Other and Rash Topiramate Other Penicillins Rash Past Medical History: Diagnosis Date Depression Factor V Leiden (CMS/HCC) Pancreatitis Seizure (CMS/HCC) Stroke (CMS/HCC) Past Surgical History: Procedure Laterality Date HYSTERECTOMY IR CVC PORT PLACEMENT 08/26/2023 IR CVC PORT PLACEMENT 08/26/2023 [facility] ANGIO MR HEAD ANGIO WO IV CONTRAST 10/16/2017 MR HEAD ANGIO WO IV CONTRAST [facility] MR NECK ANGIO WO IV CONTRAST 10/16/2017 MR NECK ANGIO WO IV CONTRAST [facility] US GUIDED PERCUTANEOUS PLACEMENT 06/08/2019 US GUIDED PERCUTANEOUS PLACEMENT [facility] Family History Problem Relation Name Age of Onset Coronary artery disease Mother Social History Social History Narrative Not on file @SOCX2@ Vapes nicotine daily around 30 ml Vapes marijuana daily No cigarette use Quit alcohol in 2013 Medications: Scheduled medications ARIPiprazole, 10 mg, oral, Daily benztropine, 0.5 mg, oral, BID divalproex, 250 mg, oral, BID fenofibrate, 160 mg, oral, Daily furosemide, 40 mg, oral, Daily insulin lispro, 0-5 Units, subcutaneous, q4h metoprolol succinate XL, 25 mg, oral, Daily pancrelipase (Vzc-Kaqt-Okav), 2 capsule, oral, TID with meals pantoprazole, 40 mg, intravenous, Daily potassium chloride CR, 20 mEq, oral, Daily rivaroxaban, 10 mg, oral, Daily with evening meal valACYclovir, 500 mg, oral, Daily venlafaxine XR, 75 mg, oral, Daily with breakfast Continuous medications lactated Ringer's, 150 mL/hr, Last Rate: 150 mL/hr (11/11/23 0620) PRN medications PRN medications: acetaminophen, dextrose 10 % in water (D10W), dextrose, diphenhydrAMINE, glucagon, heparin lock flush (porcine), HYDROmorphone, melatonin, nicotine polacrilex, ondansetron ODT OR ondansetron, polyethylene glycol EXAM Vital signs: @LDZQQL72@ Physical Exam Alert and oriented x 3 CTAB RRR Abd soft, ND, TTP on epigastric region Skin warm and dry DATA Labs Lab Results Component Value Date WBC 11.2 11/10/2023 WBC 10.0 08/03/2023 WBC 11.9 (H) 07/05/2023 HGB 13.1 11/10/2023 HGB 13.0 08/03/2023 HGB 15.0 07/05/2023 MCV 86 11/10/2023 MCV 95 08/03/2023 MCV 90 07/05/2023 PLT 298 11/10/2023 PLT 272 08/03/2023 PLT 531 (H) 07/05/2023 Lab Results Component Value Date GLUCOSE 171 (H) 11/10/2023 CALCIUM 9.7 11/10/2023 NA 138 11/10/2023 K 3.7 11/10/2023 CO2 22 11/10/2023 CL 101 11/10/2023 BUN 18 11/10/2023 CREATININE 0.77 11/10/2023 Lab Results Component Value Date ALT 72 (H) 11/10/2023 ALT 35 08/03/2023 ALT 44 07/05/2023 AST 51 (H) 11/10/2023 AST 32 08/03/2023 AST 33 07/05/2023 ALKPHOS 79 11/10/2023 ALKPHOS 87 08/03/2023 ALKPHOS 109 07/05/2023 BILITOT 0.4 11/10/2023 BILITOT 0.4 08/03/2023 BILITOT 0.4 07/05/2023 Imaging === 11/10/23 === CT ABDOMEN PELVIS W IV CONTRAST - Impression - 1. Similar size and morphology of large loculated pancreatic pseudocyst centered within the pancreatic head and uncinate process when compared to MRCP from 11/09/2023 but enlarged when compared to prior CT of the abdomen and pelvis from 06/15/2023 as described in detail above. 2. Vague fat stranding and mesenteric edema surrounds the pancreatic head and uncinate process which may represent component of acute on chronic pancreatitis. 3. Minimal ductal dilatation in the pancreatic tail similar to recent MRCP. 4. Hepatic steatosis and hepatomegaly. 5. Additional findings as above. I personally reviewed the images/study and I agree with the findings as stated above by resident physician, Dr. Nancy Garrido. The study was interpreted at [facility] in [facility]. MACRO: none Signed by: Marie Fisher 11/10/2023 10:20 PM Dictation workstation: [id number] GI Procedures ASSESSMENT / PLAN Assessment and Recommendations: Dorothea Rutledge is a 47 y.o. female with a past medical history of factor V Leiden on xarelto, seizures, anxiety, depression and chronic abdominal pain 2/2 recurrent acute on chronic pancreatitis (on Creon and q2 weeks Ketamine infusion) who has been admitted to [facility] ED on 11/11/23 for abdominal pain. Recent imaging via MRI/MRCP on 11/09/23 suggestive of enlarging pancreatic pseudocyst (10 cm) concerning for possible symptomatic cyst. Plan for EUS-guided cyst-gastrostomy on 11/14/23. #Recurrent acute on chronic pancreatitis :: Suspect her symptoms are driven by enlarging pancreatic pseudocyst in the setting of chronic pancreatitis. She may have an acute component of acute pancreatitis given elevated lipase but this is unclear. Will plan to drain cyst and monitor response Recommendations: - Hold Xarelto. Okay to be on heparin gtt if needed. Hold heparin gtt at 4 AM on 11/14/23 - NPO at [facility] on 11/13/23 - Plan for EUS guided cyst-gastrostomy on 11/14/23 - Low fat diet - Continue home Creon Staffed with Dr Agrawal. NERI per primary team. Brittany Ruiz MD Gastroenterology Fellow After 5PM and on Weekends, please page on-call fellow. Final recommendations pending attending attestation. Associated attestation - Nancy Agrawal MD - 11/11/2023 5:07 PM EST I saw and evaluated the patient. I personally obtained the denise and critical portions of the history and physical exam or was physically present for denise and critical portions performed by the resident/fellow. I reviewed the resident/fellow's documentation and discussed the patient with the resident/fellow. I agree with the resident/fellow's medical decision making as documented in the note. documented in this encounter [facility] Work Phone: 11-10-2023 History and physical note History Of Present Illness Dorothea Rutledge is a 47 y.o. female with a past medical history of factor V Leiden on Xarelto, HTN, T2DM, chronic pancreatitis (on Ketamine 30mg/Propofol 100mg infusions last dose 11/09/2023), necrotizing pancreatitis, pancreatic pseudocyst, and opioid dependence with concern for drug-seeking behavior who presented to the ED with concerns for worsening abdominal pain. The patient reported she was sent to the ED by her GI doctor after an MRCP demonstrated a pseudocyst now increased to 10cm. According to Dr. Hicks's note from today, the patient noticed worsening abdominal pain and reported to him she was coming to the ED for evaluation, which he agreed with for possible admission for drainagine of the cyst. She endorses epigastric pain with associated nausea. On exam in [id number], patient is lying on her left side with her eyes closed in no acute distress. On introduction, she reports feeling like shit . She endorses vaping, denies EtOH and illicit. She reports she had relief from her pain after her ketamine infusion yesterday, and used nasal ketamine today without relief. She reports being compliant with her home BP medications, however reports missing today's Xarelto. Past Medical History Past Medical History: Diagnosis Date Depression Factor V Leiden (CMS/HCC) Pancreatitis Seizure (CMS/HCC) Stroke (CMS/HCC) Surgical History Past Surgical History: Procedure Laterality Date HYSTERECTOMY IR CVC PORT PLACEMENT 08/26/2023 IR CVC PORT PLACEMENT 08/26/2023 [facility] ANGIO MR HEAD ANGIO WO IV CONTRAST 10/16/2017 MR HEAD ANGIO WO IV CONTRAST [facility] MR NECK ANGIO WO IV CONTRAST 10/16/2017 MR NECK ANGIO WO IV CONTRAST [facility] US GUIDED PERCUTANEOUS PLACEMENT 06/08/2019 US GUIDED PERCUTANEOUS PLACEMENT [facility] Social History She reports that she has never smoked. She uses smokeless tobacco. She reports that she does not currently use alcohol. She reports current drug use. Drug: Marijuana. Family History Family History Problem Relation Name Age of Onset Coronary artery disease Mother Allergies Gabapentin, Sulfa (sulfonamide antibiotics), Topiramate, and Penicillins Review of Systems Constitutional: Negative for chills and fever. Respiratory: Negative for shortness of breath. Cardiovascular: Negative for chest pain and palpitations. Gastrointestinal: Positive for abdominal pain and nausea. Negative for constipation, diarrhea and vomiting. Genitourinary: Negative for dysuria, flank pain, frequency, hematuria and urgency. All other systems reviewed and are negative. Physical Exam Vitals reviewed. Constitutional: Appearance: She is obese. HENT: Head: Normocephalic and atraumatic. Cardiovascular: Rate and Rhythm: Normal rate and regular rhythm. Heart sounds: Normal heart sounds. Pulmonary: Effort: Pulmonary effort is normal. Breath sounds: Normal air entry. Abdominal: Tenderness: There is no abdominal tenderness. Musculoskeletal: General: No deformity. Skin: General: Skin is warm and dry. Neurological: General: No focal deficit present. Mental Status: She is alert and oriented to person, place, and time. Psychiatric: Mood and Affect: Mood normal. Behavior: Behavior normal. Last Recorded Vitals Blood pressure 143/83, pulse (!) 112, temperature 37.1 C (98.8 F), resp. rate 18, height 1.6 m (5' 3 ), weight 104 kg (230 lb), SpO2 95 %. Relevant Results Lab Results Component Value Date WBC 11.2 11/10/2023 HGB 13.1 11/10/2023 HCT 39.5 11/10/2023 MCV 86 11/10/2023 PLT 298 11/10/2023 Lab Results Component Value Date GLUCOSE 171 (H) 11/10/2023 CALCIUM 9.7 11/10/2023 NA 138 11/10/2023 K 3.7 11/10/2023 CO2 22 11/10/2023 CL 101 11/10/2023 BUN 18 11/10/2023 CREATININE 0.77 11/10/2023 ECG 12 lead Sinus tachycardia Cannot rule out Anterior infarct , age undetermined Abnormal ECG When compared with ECG of 14-JUN-2023 21:04, Previous ECG has undetermined rhythm, needs review See ED provider note for full interpretation and clinical correlation Confirmed by Zofia Young ([id number]) on 11/10/2023 10:37:[address] abdomen pelvis w IV contrast Narrative: Interpreted By: Marie Fisher and Liller Gregory STUDY: CT ABDOMEN PELVIS W IV CONTRAST; 11/10/2023 8:52 pm INDICATION: Signs/Symptoms:pancreatitis, pseudocyst. 39-year-old female with history of pancreatitis, necrotizing pancreatitis and pseudocyst presents to ED for pseudocyst and epigastric pain. Patient had MRCP yesterday and started having intense epigastric pain today. COMPARISON: CT abdomen pelvis 07/05/2023, MRCP 11/09/2023 ACCESSION NUMBER(S): [id number] ORDERING CLINICIAN: KHURRAM STUART TECHNIQUE: CT of the abdomen and pelvis was performed. Standard contiguous axial images were obtained at 3 mm slice thickness through the abdomen and pelvis. Coronal and sagittal reconstructions at 3 mm slice thickness were performed. 80 ml of contrast Omnipaque 350 were administered intravenously without immediate complication. FINDINGS: LOWER CHEST: The visualized lung base is unremarkable. The heart is mildly enlarged without pericardial effusion. No pleural effusion is present. The distal esophagus is fluid-filled without significant esophageal wall thickening. Lead partially imaged extending into the proximal right atrium. ABDOMEN: LIVER: Redemonstration of hepatomegaly and hepatic steatosis. Focal fatty infiltration is noted along the falciform ligament. Lesion in segment 8 of the liver better delineated on recent MRI. No suspicious hepatic lesions are identified. BILE DUCTS: Bile ducts are mildly prominent which is likely sequela of reservoir effect status post cholecystectomy. GALLBLADDER: Surgically absent. PANCREAS: Redemonstration of diffuse atrophy and fatty infiltration of the pancreas with interval enlargement of the previously noted pancreatic pseudocyst when compared to prior CT of the abdomen and pelvis from 07/05/2023 and similar to MRCP from 11/09/2023 which measures up to 12 x 11 x 5.8 cm (series 201, image 57 and series 203, image 55). Previously measuring up to 7.3 x 4.[address]. A 2nd peripancreatic pseudocyst is noted extending superiorly and abutting the caudate lobe measuring 2.7 x 2.3 cm which is new when compared to prior exam and may represent extension of the large dominant pseudocyst superiorly. There is mild fat stranding surrounding the pancreatic head and uncinate process which may represent component of acute on chronic pancreatitis. There is mild ductal dilatation of the distal pancreatic duct measuring up to 5 mm in the tail, similar to prior imaging. SPLEEN: The spleen is normal in size without focal lesions. ADRENAL GLANDS: Bilateral adrenal glands appear normal. KIDNEYS AND URETERS: The kidneys are normal in size and enhance symmetrically. No hydroureteronephrosis or nephroureterolithiasis is identified. PELVIS: BLADDER: The urinary bladder appears normal without abnormal wall thickening. REPRODUCTIVE ORGANS: No pelvic masses. BOWEL: The stomach is unremarkable. The small and large bowel are normal in caliber and demonstrate no wall thickening. The appendix appears normal. VESSELS: There is no aneurysmal dilatation of the abdominal aorta. The IVC appears normal. IVC filter is similar to prior imaging. PERITONEUM/RETROPERITONEUM/LYMPH NODES: There is no free or loculated fluid collection, no free intraperitoneal air. The retroperitoneum appears normal. No abdominopelvic lymphadenopathy is present. See above for pseudocyst details. BONES AND ABDOMINAL WALL: No suspicious osseous lesions are identified. Small fat containing umbilical hernia. Impression: 1. Similar size and morphology of large loculated pancreatic pseudocyst centered within the pancreatic head and uncinate process when compared to MRCP from 11/09/2023 but enlarged when compared to prior CT of the abdomen and pelvis from 06/15/2023 as described in detail above. 2. Vague fat stranding and mesenteric edema surrounds the pancreatic head and uncinate process which may represent component of acute on chronic pancreatitis. 3. Minimal ductal dilatation in the pancreatic tail similar to recent MRCP. 4. Hepatic steatosis and hepatomegaly. 5. Additional findings as above. I personally reviewed the images/study and I agree with the findings as stated above by resident physician, Dr. Nancy Garrido. The study was interpreted at [facility] in [facility]. MACRO: none Signed by: Marie Fisher 11/10/2023 10:20 PM Dictation workstation: [id number] ED Medication Administration from 11/10/2023 1309 to 11/10/2023 2318 Date/Time Order Dose Route Action Action by 11/10/2023 1905 EST lactated Ringer's bolus 1,000 mL 1,000 mL intravenous New Bag Quinones, H 11/10/2023 191 EST HYDROmorphone (Dilaudid) injection 1 mg 1 mg intravenous Given Quinones, H 11/10/20231911 EST ondansetron (Zofran) injection 4 mg 4 mg intravenous Given Quinones, H 11/10/20232004 EST lactated Ringer's bolus 1,000 mL 0 mL intravenous Stopped Jonah, S 11/10/20232023 EST HYDROmorphone (Dilaudid) injection 1 mg 1 mg intravenous Given Jonah, S 11/10/20232052 EST iohexol (OMNIPaque) 350 mg iodine/mL solution 80 mL 87 mL intravenous Given Anjel Todd 11/10/20232155 EST HYDROmorphone PF (Dilaudid) injection 2 mg 2 mg intravenous Given Jonah, S Assessment/Plan Principal Problem: Pseudocyst of pancreas #Acute on chronic pancreatitis #Pancreatic pseudocyst #Elevated lactic acid #Tranasminitis -Lipase elevated, CT with pseudocyst enlarged from previous -Lactate improved -NPO for now -LR bolus given in ED -Continue LR @ 150 mL/hr (1.5mL/kg/hr) -Continue 1mg Dilaudid Q4HP -Zofran 4mg Q6HP for Nausea -PO Benadryl for itching -Continue Creon TID -Consult GI in AM, input appreciated1 #Factor V Leiden #Recurrent DVT -Continue Xarelto -No additional DVT chemoppx, SCDs -Protonix IV for GI ppx #Tacycardia -Likely 2/2 acute pain -Telemetry #T2DM -No recent a1c noted -Hold Toujeo 55 units for now -Hold Lispro 15 units TID-AC for now -Low SSI Q4H while NPO -Hold glipizide for now -Hypoglycemic protocol #HTN -Controlled -Continue Lasix, Potassium #Anxiety #Depression -Continue Venlafaxine 75mg daily -Continue Depakote 250mg BID -Continue Abilify 10mg daily -Continue Benztropine 0.5mg BID #Herpes simplex II -Continue Valacyclovir 500mg daily YELENA Lew [facility] Work Phone: 11-10-2023 History and physical note History Of Present Illness Dorothea Rutledge is a 47 y.o. female with a past medical history of factor V Leiden on Xarelto, HTN, T2DM, chronic pancreatitis (on Ketamine 30mg/Propofol 100mg infusions last dose 11/09/2023), necrotizing pancreatitis, pancreatic pseudocyst, and opioid dependence with concern for drug-seeking behavior who presented to the ED with concerns for worsening abdominal pain. The patient reported she was sent to the ED by her GI doctor after an MRCP demonstrated a pseudocyst now increased to 10cm. According to Dr. Hicks's note from today, the patient noticed worsening abdominal pain and reported to him she was coming to the ED for evaluation, which he agreed with for possible admission for drainagine of the cyst. She endorses epigastric pain with associated nausea. On exam in [id number], patient is lying on her left side with her eyes closed in no acute distress. On introduction, she reports feeling like shit . She endorses vaping, denies EtOH and illicit. She reports she had relief from her pain after her ketamine infusion yesterday, and used nasal ketamine today without relief. She reports being compliant with her home BP medications, however reports missing today's Xarelto. Past Medical History Past Medical History: Diagnosis Date Depression Factor V Leiden (CMS/HCC) Pancreatitis Seizure (CMS/HCC) Stroke (CMS/HCC) Surgical History Past Surgical History: Procedure Laterality Date HYSTERECTOMY IR CVC PORT PLACEMENT 08/26/2023 IR CVC PORT PLACEMENT 08/26/2023 [facility] ANGIO MR HEAD ANGIO WO IV CONTRAST 10/16/2017 MR HEAD ANGIO WO IV CONTRAST [facility] MR NECK ANGIO WO IV CONTRAST 10/16/2017 MR NECK ANGIO WO IV CONTRAST [facility] US GUIDED PERCUTANEOUS PLACEMENT 06/08/2019 US GUIDED PERCUTANEOUS PLACEMENT [facility] Social History She reports that she has never smoked. She uses smokeless tobacco. She reports that she does not currently use alcohol. She reports current drug use. Drug: Marijuana. Family History Family History Problem Relation Name Age of Onset Coronary artery disease Mother Allergies Gabapentin, Sulfa (sulfonamide antibiotics), Topiramate, and Penicillins Review of Systems Constitutional: Negative for chills and fever. Respiratory: Negative for shortness of breath. Cardiovascular: Negative for chest pain and palpitations. Gastrointestinal: Positive for abdominal pain and nausea. Negative for constipation, diarrhea and vomiting. Genitourinary: Negative for dysuria, flank pain, frequency, hematuria and urgency. All other systems reviewed and are negative. Physical Exam Vitals reviewed. Constitutional: Appearance: She is obese. HENT: Head: Normocephalic and atraumatic. Cardiovascular: Rate and Rhythm: Normal rate and regular rhythm. Heart sounds: Normal heart sounds. Pulmonary: Effort: Pulmonary effort is normal. Breath sounds: Normal air entry. Abdominal: Tenderness: There is no abdominal tenderness. Musculoskeletal: General: No deformity. Skin: General: Skin is warm and dry. Neurological: General: No focal deficit present. Mental Status: She is alert and oriented to person, place, and time. Psychiatric: Mood and Affect: Mood normal. Behavior: Behavior normal. Last Recorded Vitals Blood pressure 143/83, pulse (!) 112, temperature 37.1 C (98.8 F), resp. rate 18, height 1.6 m (5' 3 ), weight 104 kg (230 lb), SpO2 95 %. Relevant Results Lab Results Component Value Date WBC 11.2 11/10/2023 HGB 13.1 11/10/2023 HCT 39.5 11/10/2023 MCV 86 11/10/2023 PLT 298 11/10/2023 Lab Results Component Value Date GLUCOSE 171 (H) 11/10/2023 CALCIUM 9.7 11/10/2023 NA 138 11/10/2023 K 3.7 11/10/2023 CO2 22 11/10/2023 CL 101 11/10/2023 BUN 18 11/10/2023 CREATININE 0.77 11/10/2023 ECG 12 lead Sinus tachycardia Cannot rule out Anterior infarct , age undetermined Abnormal ECG When compared with ECG of 14-JUN-2023 21:04, Previous ECG has undetermined rhythm, needs review See ED provider note for full interpretation and clinical correlation Confirmed by Zofia Young ([id number]) on 11/10/2023 10:37:[address] abdomen pelvis w IV contrast Narrative: Interpreted By: Marie Fisher and Liller Gregory STUDY: CT ABDOMEN PELVIS W IV CONTRAST; 11/10/2023 8:52 pm INDICATION: Signs/Symptoms:pancreatitis, pseudocyst. 39-year-old female with history of pancreatitis, necrotizing pancreatitis and pseudocyst presents to ED for pseudocyst and epigastric pain. Patient had MRCP yesterday and started having intense epigastric pain today. COMPARISON: CT abdomen pelvis 07/05/2023, MRCP 11/09/2023 ACCESSION NUMBER(S): [id number] ORDERING CLINICIAN: KHURRAM STUART TECHNIQUE: CT of the abdomen and pelvis was performed. Standard contiguous axial images were obtained at 3 mm slice thickness through the abdomen and pelvis. Coronal and sagittal reconstructions at 3 mm slice thickness were performed. 80 ml of contrast Omnipaque 350 were administered intravenously without immediate complication. FINDINGS: LOWER CHEST: The visualized lung base is unremarkable. The heart is mildly enlarged without pericardial effusion. No pleural effusion is present. The distal esophagus is fluid-filled without significant esophageal wall thickening. Lead partially imaged extending into the proximal right atrium. ABDOMEN: LIVER: Redemonstration of hepatomegaly and hepatic steatosis. Focal fatty infiltration is noted along the falciform ligament. Lesion in segment 8 of the liver better delineated on recent MRI. No suspicious hepatic lesions are identified. BILE DUCTS: Bile ducts are mildly prominent which is likely sequela of reservoir effect status post cholecystectomy. GALLBLADDER: Surgically absent. PANCREAS: Redemonstration of diffuse atrophy and fatty infiltration of the pancreas with interval enlargement of the previously noted pancreatic pseudocyst when compared to prior CT of the abdomen and pelvis from 07/05/2023 and similar to MRCP from 11/09/2023 which measures up to 12 x 11 x 5.8 cm (series 201, image 57 and series 203, image 55). Previously measuring up to 7.3 x 4.[address]. A 2nd peripancreatic pseudocyst is noted extending superiorly and abutting the caudate lobe measuring 2.7 x 2.3 cm which is new when compared to prior exam and may represent extension of the large dominant pseudocyst superiorly. There is mild fat stranding surrounding the pancreatic head and uncinate process which may represent component of acute on chronic pancreatitis. There is mild ductal dilatation of the distal pancreatic duct measuring up to 5 mm in the tail, similar to prior imaging. SPLEEN: The spleen is normal in size without focal lesions. ADRENAL GLANDS: Bilateral adrenal glands appear normal. KIDNEYS AND URETERS: The kidneys are normal in size and enhance symmetrically. No hydroureteronephrosis or nephroureterolithiasis is identified. PELVIS: BLADDER: The urinary bladder appears normal without abnormal wall thickening. REPRODUCTIVE ORGANS: No pelvic masses. BOWEL: The stomach is unremarkable. The small and large bowel are normal in caliber and demonstrate no wall thickening. The appendix appears normal. VESSELS: There is no aneurysmal dilatation of the abdominal aorta. The IVC appears normal. IVC filter is similar to prior imaging. PERITONEUM/RETROPERITONEUM/LYMPH NODES: There is no free or loculated fluid collection, no free intraperitoneal air. The retroperitoneum appears normal. No abdominopelvic lymphadenopathy is present. See above for pseudocyst details. BONES AND ABDOMINAL WALL: No suspicious osseous lesions are identified. Small fat containing umbilical hernia. Impression: 1. Similar size and morphology of large loculated pancreatic pseudocyst centered within the pancreatic head and uncinate process when compared to MRCP from 11/09/2023 but enlarged when compared to prior CT of the abdomen and pelvis from 06/15/2023 as described in detail above. 2. Vague fat stranding and mesenteric edema surrounds the pancreatic head and uncinate process which may represent component of acute on chronic pancreatitis. 3. Minimal ductal dilatation in the pancreatic tail similar to recent MRCP. 4. Hepatic steatosis and hepatomegaly. 5. Additional findings as above. I personally reviewed the images/study and I agree with the findings as stated above by resident physician, Dr. Nancy Garrido. The study was interpreted at [facility] in [facility]. MACRO: none Signed by: Marie Fisher 11/10/2023 10:20 PM Dictation workstation: [id number] ED Medication Administration from 11/10/2023 1309 to 11/10/2023 2318 Date/Time Order Dose Route Action Action by 11/10/2023 1905 EST lactated Ringer's bolus 1,000 mL 1,000 mL intravenous New Bag Quinones, H 11/10/20231911 EST HYDROmorphone (Dilaudid) injection 1 mg 1 mg intravenous Given Quinones, H 11/10/20231911 EST ondansetron (Zofran) injection 4 mg 4 mg intravenous Given Quinones, H 11/10/20232004 EST lactated Ringer's bolus 1,000 mL 0 mL intravenous Stopped Jonah, S 11/10/20232023 EST HYDROmorphone (Dilaudid) injection 1 mg 1 mg intravenous Given Jonah, S 11/10/20232052 EST iohexol (OMNIPaque) 350 mg iodine/mL solution 80 mL 87 mL intravenous Given Anjel Todd 11/10/20232155 EST HYDROmorphone PF (Dilaudid) injection 2 mg 2 mg intravenous Given Jonah, S Assessment/Plan Principal Problem: Pseudocyst of pancreas #Acute on chronic pancreatitis #Pancreatic pseudocyst #Elevated lactic acid #Tranasminitis -Lipase elevated, CT with pseudocyst enlarged from previous -Lactate improved -NPO for now -LR bolus given in ED -Continue LR @ 150 mL/hr (1.5mL/kg/hr) -Continue 1mg Dilaudid Q4HP -Zofran 4mg Q6HP for Nausea -PO Benadryl for itching -Continue Creon TID -Consult GI in AM, input appreciated1 #Factor V Leiden #Recurrent DVT -Continue Xarelto -No additional DVT chemoppx, SCDs -Protonix IV for GI ppx #Tacycardia -Likely 2/2 acute pain -Telemetry #T2DM -No recent a1c noted -Hold Toujeo 55 units for now -Hold Lispro 15 units TID-AC for now -Low SSI Q4H while NPO -Hold glipizide for now -Hypoglycemic protocol #HTN -Controlled -Continue Lasix, Potassium #Anxiety #Depression -Continue Venlafaxine 75mg daily -Continue Depakote 250mg BID -Continue Abilify 10mg daily -Continue Benztropine 0.5mg BID #Herpes simplex II -Continue Valacyclovir 500mg daily YELENA Lew documented in this encounter [facility] Work Phone: 11-10-2023 Emergency department Note Pts AN goodman sent her in because she has cysts on her pancreas. Pt states the pain started around 0600 documented in this encounter [facility] Work Phone: 11-10-2023 Emergency department Triage note Pts AN goodman sent her in because she has cysts on her pancreas. 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 The patient stated that she used to be a binge drinker till 2013 when she stopped and she continued to have pain from her chronic pancreatitis that it is episodic and happens once every 2 to 4 weeks and last for a day to day and a half. The pain is tolerable in between those attacks. Today was a good day for her but palpating her abdomen resulted in significant tenderness over the right upper quadrant area the patient received IV infusion therapy and had a port implanted by radiology for IV access who is here for follow-up stating that she is doing most of the time very well with IV infusion therapy once every 2 weeks. She will get recently another acute pancreatic attack she is being admitted to the hospital. She has gained a lot of fluid and weight from her insulin treatment as well. She had to have her Mediport replaced again because the previous one was flipped. She is here to continue with her IV infusion therapy. We renewed her therapy order and signed her consent. I gave her information about the clinic ketamine infusion as well. 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 The patient stated that she used to be a binge drinker till 2013 when she stopped and she continued to have pain from her chronic pancreatitis that it is episodic and happens once every 2 to 4 weeks and last for a day to day and a half. The pain is tolerable in between those attacks. Today was a good day for her but palpating her abdomen resulted in significant tenderness over the right upper quadrant area. Assessment 47 years old with morbid obesity BMI 39 with seizure disorder, factor V Leiden with recurrent DVT, anxiety and depression, CVA, hypertension, binge alcohol drinking last episode 2013 and continues to have a chronic pancreatitis with significant allodynia and hyperalgesia on the abdominal wall. Plan for IV infusion therapy once every 2 weeks and the patient to follow-up with general surgery and GI Procedures: IV infusion therapy the patient has had a 75% improvement in pain and function Portions of record reviewed for pertinent issues: active problem list, medication list, allergies, family history, social history, notes from last encounter, encounters, lab results, imaging and other available records. I have personally reviewed the OAR[place] report for this patient. This report is scanned into the electronic medical record. I have considered the risks of abuse, dependence, addiction and diversion. 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 Redemonstrated sequelae of necrotizing pancreatitis. Though there is significant improvement in the lesser sac fat stranding, gastrohepatic stranding has minimally increased as described above raising a possibility of a acute episode of pancreatitis, correlation with the serum amylase and lipase recommended 2. Increased size of intra and peripancreatic fluid collections, consistent with walled-off necrosis. 3. Hepatomegaly with heterogenously hypodense liver parenchyma compatible with steatosis. 4. Cholecystectomy. Mild common bile duct dilation. I personally reviewed the images/study and I agree with the findings as stated. This study was interpreted at [facility], [place], [place]. MACRO: None Electronically signed by: CARISSA BUI 05/12/23 23:23 I have personally reviewed the OARRS report for this patient. This report is scanned into the electronic medical record. I have considered the risks of abuse, dependence, addiction and diversion. It showed: Oxycodone small amount from different providers OPIOID RISK ASSESSMENT SCORE 10/26 Aberrant behavior: none Review of Systems HENT: Negative. Eyes: Negative. Respiratory: Negative. Cardiovascular: Negative. Gastrointestinal: Positive for abdominal pain. Endocrine: Negative. Genitourinary: Negative. Musculoskeletal: Positive for myalgias. Skin: Negative. Hematological: Negative. Psychiatric/Behavioral: Negative. Physical Exam Vitals and nursing note reviewed. Constitutional: Appearance: Normal appearance. HENT: Head: Normocephalic and atraumatic. Nose: Nose normal. Eyes: Extraocular Movements: Extraocular movements intact. Conjunctiva/sclera: Conjunctivae normal. Pupils: Pupils are equal, round, and reactive to light. Cardiovascular: Rate and Rhythm: Normal rate and regular rhythm. Pulses: Normal pulses. Heart sounds: Normal heart sounds. Pulmonary: Effort: Pulmonary effort is normal. Breath sounds: Normal breath sounds. Abdominal: General: Abdomen is flat. Bowel sounds are normal. Tenderness: There is abdominal tenderness. Skin: General: Skin is warm. Neurological: Mental Status: She is alert. Psychiatric: Mood and Affect: Mood normal. Behavior: Behavior normal. Plan At least 50% of the visit was involved in the discussion of the options for treatment. We discussed exercises, medication, interventional therapies and surgery. Healthy life style is essential with patient hard work to achieve the wellness. In addition; discussion with the patient and/or family about any of the diagnostic results, impressions and/or recommended diagnostic studies, prognosis, risks and benefits of treatment options, instructions for treatment and/or follow-up, importance of compliance with chosen treatment options, risk-factor reduction, and patient/family education. Pool therapy, walking in the pool, at least 3x per week for 30 minutes Continue self-directed physical therapy Continue IV infusion therapy Highly recommend GI functional medicine evaluation and treatment Information about the clinic ketamine infusion Healthy lifestyle and anti-inflammatory diet in addition to weight control discussed with the patient Alternative chronic pain therapies was discussed, encouraged and information was handed Return to Clinic 3 months *Please note this report has been produced using speech recognition software and may contain errors related to that system including grammar, punctuation and spelling as well as words and phrases that may be inappropriate. If there are questions or concerns, please feel free to contact me to clarify. Tianna Rasmussen MD This is 47 y.o. female with who has been treated for pancreatic pain . Pain is better, The pain is described as deep and is relieved by Iv infusion . Here for follow-up Chief Complaint Patient presents with Follow-up Follow-up for 5 IV infusion therapy treatments Patient states she has had 5 IV infusion therapies 1 infusion every 2 weeks. Patient states during her first 4 infusions she got about 75% pain relief for about 1 week however the last infusion that she had did not work as well. Pain Therapies: IV infusion therapy Opioid Risk Assessment Score 10/26 patient states she has a history of anxiety and depression family history of alcohol abuse patient does admit that she at one point had abused alcohol and prescription drugs. documented in this encounter [facility] Work Phone: 10-18-2023 Miscellaneous Notes Interventional Radiology Brief Postprocedure Note Attending: Flori Computer Equipment Installer: None Diagnosis: requires durable IV access Description of procedure: RIJ mediport removal, replacement Anesthesia: Local Complications: None Estimated Blood Loss: 5 cc's Medications (Filter: Administrations occurring from 0913 to 1010 on 10/18/23) As of 10/18/23 1010 fentaNYL PF (Sublimaze) injection (mcg) Total dose: 100 mcg Date/Time Rate/Dose/Volume Action 10/18/23 0941 50 mcg Given 0946 50 mcg Given midazolam (Versed) injection (mg) Total dose: 2 mg Date/Time Rate/Dose/Volume Action 10/18/23 0941 1 mg Given 0946 1 mg Given No specimens collected See detailed result report with images in PACS. The patient tolerated the procedure well without incident or complication and is in stable condition. Interventional Radiology Preprocedure Note Indication for procedure: The encounter diagnosis was Poor intravenous access. Relevant review of systems: NA Relevant Labs: Lab Results Component Value Date CREATININE 0.72 08/03/2023 EGFR >90 08/03/2023 INR 1.1 05/14/2023 PROTIME 12.7 05/14/2023 Planned Sedation/Anesthesia: Moderate Airway assessment: normal Directed physical examination: A&Ox3 Right chest wall mediport without skin erythema Normal rate of respirations Mallampati: II (hard and soft palate, upper portion of tonsils anduvula visible) ASA Score: ASA 2 - Patient with mild systemic disease with no functional limitations Benefits, risks and alternatives of procedure and planned sedation have been discussed with the patient and/or their contact center representative. All questions answered and they agree to proceed. Grzegorz Brady DO, PGY-2 Diagnostic Radiology [facility] documented in this encounter [facility] Work Phone: 10-18-2023 Note Formatting of this n ote is different from the original. Interventional Radiology Brief Postprocedure Note Attending: Flori Computer Equipment Installer: None Diagnosis: requires durable IV access Description of procedure: RIJ mediport removal, replacement Anesthesia: Local Complications: None Estimated Blood Loss: 5 cc's Medications (Filter: Administrations occurring from 0913 to 1010 on 10/18/23) As of 10/18/23 1010 fentaNYL PF (Sublimaze) injection (mcg) Total dose: 100 mcg Date/Time Rate/Dose/Volume Action 10/18/23 0941 50 mcg Given 0946 50 mcg Given midazolam (Versed) injection (mg) Total dose: 2 mg Date/Time Rate/Dose/Volume Action 10/18/23 0941 1 mg Given 46 1 mg Given No specimens collected See detailed result report with images in PACS. The patient tolerated the procedure well without incident or complication and is in stable condition. [facility] Work Phone: 10-18-2023 Note Formatting of this n ote is different from the original. Interventional Radiology Preprocedure Note Indication for procedure: The encounter diagnosis was Poor intravenous access. Relevant review of systems: NA Relevant Labs: Lab Results Component Value Date CREATININE 0.72 08/03/2023 EGFR >90 08/03/2023 INR 1.1 05/14/2023 PROTIME 12.7 05/14/2023 Planned Sedation/Anesthesia: Moderate Airway assessment: normal Directed physical examination: A&Ox3 Right chest wall mediport without skin erythema Normal rate of respirations Mallampati: II (hard and soft palate, upper portion of tonsils anduvula visible) ASA Score: ASA 2 - Patient with mild systemic disease with no functional limitations Benefits, risks and alternatives of procedure and planned sedation have been discussed with the patient and/or their contact center representative. All questions answered and they agree to proceed. Grzegorz Brady DO, PGY-2 Diagnostic Radiology [facility] Work Phone: 10-18-2023 Note Formatting of this n ote is different from the original. Interventional Radiology Brief Postprocedure Note Attending: Flori Computer Equipment Installer: None Diagnosis: requires durable IV access Description of procedure: RIJ mediport removal, replacement Anesthesia: Local Complications: None Estimated Blood Loss: 5 cc's Medications (Filter: Administrations occurring from 0913 to 1010 on 10/18/23) As of 10/18/23 1010 fentaNYL PF (Sublimaze) injection (mcg) Total dose: 100 mcg Date/Time Rate/Dose/Volume Action 10/18/23 0941 50 mcg Given 0946 50 mcg Given midazolam (Versed) injection (mg) Total dose: 2 mg Date/Time Rate/Dose/Volume Action 10/18/23 0941 1 mg Given 46 1 mg Given No specimens collected See detailed result report with images in PACS. The patient tolerated the procedure well without incident or complication and is in stable condition. [facility] Work Phone: 10-18-2023 Note Formatting of this n ote is different from the original. Interventional Radiology Preprocedure Note Indication for procedure: The encounter diagnosis was Poor intravenous access. Relevant review of systems: NA Relevant Labs: Lab Results Component Value Date CREATININE 0.72 08/03/2023 EGFR >90 08/03/2023 INR 1.1 05/14/2023 PROTIME 12.7 05/14/2023 Planned Sedation/Anesthesia: Moderate Airway assessment: normal Directed physical examination: A&Ox3 Right chest wall mediport without skin erythema Normal rate of respirations Mallampati: II (hard and soft palate, upper portion of tonsils anduvula visible) ASA Score: ASA 2 - Patient with mild systemic disease with no functional limitations Benefits, risks and alternatives of procedure and planned sedation have been discussed with the patient and/or their contact center representative. All questions answered and they agree to proceed. Grzegorz Brady DO, PGY-2 Diagnostic Radiology [facility] Work Phone: 10-17-2023 Hospital Discharge instructions Patient Education 10/17/2023 18:28:56 Diabetes with High Blood Sugar Diabetes with High Blood Sugar You have been treated for high blood sugar (hyperglycemia). This may be because of an infection or other illness. Or it may be from eating too many sweets or starches. Or it may be from not taking enough insulin or other diabetes medicine. Home care Check your blood sugar level at least 2 times a day. Write it down the results. Do this before breakfast and before dinner. If you take insulin, also write down your routine insulin dose. Note any other doses you needed based on your sliding scale or as advised by your healthcare provider. Do this for the next 3 to 5 days. High blood sugar may cause symptoms that you can learn to spot. These include: Peeing often Thirst Headache Breath that smells fruity Nausea or vomiting Belly pain If you have symptoms of high blood sugar, use a blood or urine test to find out what your blood sugar level is. If it is above your usual range, use the sliding scale regular insulin dose from your healthcare provider. Call your provider for advice if you were not given a range for your insulin dose. If your blood sugar is over 240 mg/dL, check your urine for ketones. Follow-up care Follow up with your healthcare provider, or as advised. You may need to meet with your provider in the next week. You will likely look at your blood sugar records together. You may need to change your dose of insulin or other diabetes medicine. When to seek medical advice Call your healthcare provider right away if these occur: Symptoms of high blood sugar that don't get better with the treatment your provider advised. This is especially true if you also have ketones in your urine. Blood sugar over 300 mg/dl. If you can t reach your healthcare provider, go to a hospital emergency room or urgent care center. Call 911 Call 911 if you have any of the following: Confusion Dizziness, lightheadedness, or loss of consciousness Shortness of breath Chest pain Weakness of an arm, leg, or one side of the face Sudden trouble with speech or vision [id number] [employer]. [address] [place] [address], [place] [address]. All rights reserved. This information is not intended as a substitute for professional medical care. Always follow your healthcare professional's instructions. 10/17/2023 18:28:52 Abdominal Pain Abdominal Pain Abdominal pain is pain in the stomach or belly area. Everyone has this pain from time to time. In many cases it goes away on its own. But abdominal pain can sometimes be due to a serious problem, such as appendicitis. So it s important to know when to get help. Causes of abdominal pain There are many possible causes of abdominal pain. Common causes in adults include: Constipation, diarrhea, or gas Stomach acid flowing back up into the esophagus (acid reflux or heartburn) Severe acid reflux, called GERD (gastroesophageal reflux disease) A sore in the lining of the stomach or small intestine (peptic ulcer) Inflammation of the gallbladder, liver, or pancreas Gallstones or kidney stones Appendicitis Intestinal blockage An internal organ pushing through a muscle or other tissue (hernia) Urinary tract infections In women, menstrual cramps, fibroids, ovarian cysts, pelvic inflammatory disease, or endometriosis Inflammation or infection of the intestines, including Crohn's disease and ulcerative colitis Irritable bowel syndrome Diagnosing the cause of abdominal pain Your healthcare provider will give you a physical exam help find the cause of your pain. If needed, you will have tests. Belly pain has many possible causes. So it can be hard to find the reason for your pain. Giving details about your pain can help. Tell your provider where and when you feel the pain, and what makes it better or worse. Also let your provider know if you have other symptoms such as: Fever Tiredness Upset stomach (nausea) Vomiting Changes in bathroom habits Blood in the stool or black, tarry stool Weight loss that you can't explain (involuntary weight loss?) Also report any family history of stomach or intestinal problems, or cancers. Tell your provider about all your alcohol use and drug use. Tell your provider about all medicines you use, including herbs, vitamins, and supplements. Treating abdominal pain Some causes of pain need emergency medical treatment right away. These include appendicitis or a bowel blockage. Other problems can be treated with rest, fluids, or medicines. Your healthcare provider can give you specific instructions for treatment or self-care based on what is causing your pain. If you have vomiting or diarrhea, sip water or other clear fluids. When you are ready to eat solid foods again, start with small amounts of xbxv-so-blzbjd, low-fat foods. These include apple sauce, toast, or crackers. When to get medical care Call 911 or go to the hospital right away if you: Can t pass stool and are vomiting Are vomiting blood or have bloody diarrhea or black, tarry diarrhea Have chest, neck, or shoulder pain Feel like you might pass out Have pain in your shoulder blades with nausea Have sudden, severe belly pain Have new, severe pain unlike any you have felt before Have a belly that is rigid, hard, and hurts to touch Call your healthcare provider if you have: Pain for more than 5 days Bloating for more than 2 days Diarrhea for more than 5 days A fever of 100.4 F (38 C) or higher, or as directed by your healthcare provider Pain that gets worse Weight loss for no reason Continued lack of appetite Blood in your stool How to prevent abdominal pain Here are some tips to help prevent abdominal pain: Eat smaller amounts of food at each meal. Don't eat greasy, fried, or other high-fat foods. Don't eat foods that give you gas. Exercise regularly. Drink plenty of fluids. To help prevent GERD symptoms: Quit smoking. Reduce alcohol and foods that increase stomach acid. Don't use aspirin or dmpz-gto-vgklboq pain and fever medicines, if possible. This includes nonsteroidal anti-inflammatory drugs (NSAIDs). Lose excess weight. Finish eating at least 2 hours before you go to bed or lie down. Raise the head of your bed. [id number] [employer]. [address] [place] [address]. All rights reserved. This information is not intended as a substitute for professional medical care. Always follow your healthcare professional's instructions. Follow Up Care 10/17/2023 15:46:50 With:CJ RIVERA Address: [address] [facility] [place] [address]- [phone] When:2-4 days [facility] 10-17-2023 Note Discharge Instructions Thank you for allowing [facility] to assist you with your healthcare needs. The following is important discharge information regarding your hospital visit. Diagnosis from Today's Visit Abdominal pain Abdominal pain Hyperglycemia Hyperglycemia What to Do Next Instructions from Your Care Team No qualifying data available. Post Acute Orders No qualifying data available. 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 What How Much When Instructions Last Dose Unchanged APAP/ butalbital/ caffeine (APAP/ butalbital/ caffeine 325-50-40 mg oral tablet (Fioricet)) 1 tab(s) by mouth Every 4 hours as needed for as needed in absence of pcp Unchanged ARIPiprazole (ARIPiprazole 10 mg oral tablet) 1 tab(s) by mouth Once a day Duration: 90 Days Unchanged ascorbic acid (Vitamin C 1000 mg oral tablet) 1 tab(s) by mouth Once a day Unchanged cholecalciferol (cholecalciferol 1250 mcg (50,000 intl units) oral capsule) 1 cap by mouth Every Tuesday Duration: 90 Days Unchanged clonazePAM (clonazePAM 0.5 mg oral tablet) 1 tab(s) by mouth Once a day as needed for Anxiety Unchanged cloNIDine (cloNIDine 0.2 mg oral tablet) 1 tab(s) by mouth Once a day Duration: 90 Days Unchanged dextromethorphan (dextromethorphan 10 mg/ 5 mL oral syrup) 5 Milliliter by mouth Every 4 hours as needed for as needed for cough Unchanged divalproex sodium (divalproex sodium 250 mg oral delayed release tablet) 1 tab(s) by mouth Two (2) times a day Duration: 90 Days Take 1 tab TWICE A DAY for Mood Unchanged DME (Blood Glucose Test Machine) See instructions Brand as covered Diagnosis E11.9 Patient is not insulin independent Check blood sugars daily Unchanged DME (Blood Glucose Test Strips) See instructions Brand as covered Diagnosis E11.9 Patient is not insulin independent Check blood sugars daily Unchanged DME (Lancets) See instructions Brand as covered Diagnosis E11.9 Patient is not insulin independent Check blood sugars daily Unchanged fenofibrate (fenofibrate 145 mg oral tablet) 1 tab(s) by mouth Once a day Unchanged furosemide (furosemide 40 mg oral tablet) 1 tab(s) by mouth Once a day Duration: 90 Days Unchanged glipiZIDE (glipiZIDE 5 mg oral tablet, extended release) 1 tab(s) by mouth Once a day Unchanged hydroCHLOROthiazide (hydroCHLOROthiazide 25 mg oral tablet) 1 tab(s) by mouth Once a day Unchanged insulin aspart (Novolog) (NovoLOG FlexPen 100 units/ mL injectable solution) 5 unit(s) Subcutaneous Three (3) times a day before meals Unchanged insulin glargine (Lantus Solostar Pen 100 units/ mL 3 mL Pen) 50 unit(s) Subcutaneous Daily at bedtime Unchanged lacosamide (lacosamide 100 mg oral tablet) 2 tab(s) by mouth Daily at bedtime Unchanged linaclotide (Linzess 290 mcg oral capsule) 1 cap by mouth Once a day Duration: 90 Days Unchanged metoprolol (metoprolol succinate 25 mg oral TABLET extended release) 1 tab(s) by mouth Once a day Duration: 90 Days Unchanged mirtazapine (mirtazapine 7.5 mg oral tablet) 1 tab(s) by mouth Daily at bedtime Duration: 90 Days Unchanged nitrofurantoin (Macrobid 100 mg oral capsule) 1 cap by mouth Once a day as needed for Symptoms of urinary discomfort Take with food Unchanged omeprazole (omeprazole 40 mg oral delayed release capsule) 1 cap by mouth Two (2) times a day Duration: 90 Days Unchanged ondansetron (ondansetron 8 mg oral tablet, disintegrating) 1 tab(s) by mouth Three (3) times a day as needed for Nausea sent in absence of PCP Unchanged potassium chloride (potassium chloride 20 mEq oral tablet, extended release) 1 tab(s) by mouth Three (3) times a day Duration: 90 Days Unchanged rivaroxaban (Xarelto 10 mg oral tablet) 1 tab(s) by mouth Once a day Duration: 90 Days sent in absence of PCP Unchanged rOPINIRole (rOPINIRole 0.5 mg oral tablet) 1 tab(s) by mouth Two (2) times a day Duration: 90 Days Unchanged valACYclovir (valACYclovir 500 mg oral tablet) 1 tab(s) by mouth Once a day Duration: 90 Days Unchanged venlafaxine (venlafaxine 150 mg oral capsule, extended release) 1 cap by mouth Once a day Duration: 90 Days for a total of 225 mg/ day. Unchanged venlafaxine (venlafaxine 75 mg oral capsule, extended release) 1 cap by mouth Once a day Duration: 90 Days for a total of 225 mg/ day. Please take this list to your next doctor s visit. Bring all medications you take, including over the counter medications, herbals and other supplements with you to your doctor s visit. Patients and families are reminded to discard old lists and to update any records with all medication providers or retail pharmacies. Education Materials Diabetes with High Blood Sugar You have been treated for high blood sugar (hyperglycemia). This may be because of an infection or other illness. Or it may be from eating too many sweets or starches. Or it may be from not taking enough insulin or other diabetes medicine. Home care Check your blood sugar level at least 2 times a day. Write it down the results. Do this before breakfast and before dinner. If you take insulin, also write down your routine insulin dose. Note any other doses you needed based on your sliding scale or as advised by your healthcare provider. Do this for the next 3 to 5 days. High blood sugar may cause symptoms that you can learn to spot. These include: Peeing often Thirst Headache Breath that smells fruity Nausea or vomiting Belly pain If you have symptoms of high blood sugar, use a blood or urine test to find out what your blood sugar level is. If it is above your usual range, use the sliding scale regular insulin dose from your healthcare provider. Call your provider for advice if you were not given a range for your insulin dose. If your blood sugar is over 240 mg/dL, check your urine for ketones. Follow-up care Follow up with your healthcare provider, or as advised. You may need to meet with your provider in the next week. You will likely look at your blood sugar records together. You may need to change your dose of insulin or other diabetes medicine. When to seek medical advice Call your healthcare provider right away if these occur: Symptoms of high blood sugar that don't get better with the treatment your provider advised. This is especially true if you also have ketones in your urine. Blood sugar over 300 mg/dl. If you can t reach your healthcare provider, go to a hospital emergency room or urgent care center. Call 911 Call 911 if you have any of the following: Confusion Dizziness, lightheadedness, or loss of consciousness Shortness of breath Chest pain Weakness of an arm, leg, or one side of the face Sudden trouble with speech or vision [id number] [employer]. [address] [place] [address], [place] [address]. All rights reserved. This information is not intended as a substitute for professional medical care. Always follow your healthcare professional's instructions. Abdominal Pain Abdominal pain is pain in the stomach or belly area. Everyone has this pain from time to time. In many cases it goes away on its own. But abdominal pain can sometimes be due to a serious problem, such as appendicitis. So it s important to know when to get help. Causes of abdominal pain There are many possible causes of abdominal pain. Common causes in adults include: Constipation, diarrhea, or gas Stomach acid flowing back up into the esophagus (acid reflux or heartburn) Severe acid reflux, called GERD (gastroesophageal reflux disease) A sore in the lining of the stomach or small intestine (peptic ulcer) Inflammation of the gallbladder, liver, or pancreas Gallstones or kidney stones Appendicitis Intestinal blockage An internal organ pushing through a muscle or other tissue (hernia) Urinary tract infections In women, menstrual cramps, fibroids, ovarian cysts, pelvic inflammatory disease, or endometriosis Inflammation or infection of the intestines, including Crohn's disease and ulcerative colitis Irritable bowel syndrome Diagnosing the cause of abdominal pain Your healthcare provider will give you a physical exam help find the cause of your pain. If needed, you will have tests. Belly pain has many possible causes. So it can be hard to find the reason for your pain. Giving details about your pain can help. Tell your provider where and when you feel the pain, and what makes it better or worse. Also let your provider know if you have other symptoms such as: Fever Tiredness Upset stomach (nausea) Vomiting Changes in bathroom habits Blood in the stool or black, tarry stool Weight loss that you can't explain (involuntary weight loss?) Also report any family history of stomach or intestinal problems, or cancers. Tell your provider about all your alcohol use and drug use. Tell your provider about all medicines you use, including herbs, vitamins, and supplements. Treating abdominal pain Some causes of pain need emergency medical treatment right away. These include appendicitis or a bowel blockage. Other problems can be treated with rest, fluids, or medicines. Your healthcare provider can give you specific instructions for treatment or self-care based on what is causing your pain. If you have vomiting or diarrhea, sip water or other clear fluids. When you are ready to eat solid foods again, start with small amounts of ukpn-od-xrbwre, low-fat foods. These include apple sauce, toast, or crackers. When to get medical care Call 911 or go to the hospital right away if you: Can t pass stool and are vomiting Are vomiting blood or have bloody diarrhea or black, tarry diarrhea Have chest, neck, or shoulder pain Feel like you might pass out Have pain in your shoulder blades with nausea Have sudden, severe belly pain Have new, severe pain unlike any you have felt before Have a belly that is rigid, hard, and hurts to touch Call your healthcare provider if you have: Pain for more than 5 days Bloating for more than 2 days Diarrhea for more than 5 days A fever of 100.4 F (38 C) or higher, or as directed by your healthcare provider Pain that gets worse Weight loss for no reason Continued lack of appetite Blood in your stool How to prevent abdominal pain Here are some tips to help prevent abdominal pain: Eat smaller amounts of food at each meal. Don't eat greasy, fried, or other high-fat foods. Don't eat foods that give you gas. Exercise regularly. Drink plenty of fluids. To help prevent GERD symptoms: Quit smoking. Reduce alcohol and foods that increase stomach acid. Don't use aspirin or dshh-wlb-wcsvohp pain and fever medicines, if possible. This includes nonsteroidal anti-inflammatory drugs (NSAIDs). Lose excess weight. Finish eating at least 2 hours before you go to bed or lie down. Raise the head of your bed. [id number] [employer]. [address] [place] [address], [place] [address]. All rights reserved. This information is not intended as a substitute for professional medical care. Always follow your healthcare professional's instructions. Additional Information VACCINATE! IT SAVES LIVES! Members of the community who have not yet received the COVID-19 vaccine and would like to receive it can visit one of [facility] vaccine clinics. There are many vaccine clinic locations within the [facility]. For locations and available times, please visit www.[email or web address].[place].gov/ . It is important to note that some COVID mobile vaccine clinics are held outdoors and may be canceled in rainy or stormy conditions. To learn more about pediatric vaccinations (ages 5-11), we invite you to visit the [facility] webpage. [email or web address].[email or web address].org/pages /4679-Qbkhv-Kuqwarvckxe-Frequently-A sked-Questions.html To learn more about the COVID-19 vaccine, we invite you to visit the CDC website for a list of frequently asked questions. https://www.cdc.gov/coronavirus/2019 -ncov/vaccines/faq.html [facility] Patient Portal Access Instructions: Stay connected with your healthcare team and access your personal medical information anytime with the [facility] Patient Portal. If you would like a full copy of your medical records please contact the [facility] Medical Records Department Tuesday through Tuesday between 8a.m. and 4:30p.m. Please follow the directions below to access the portal: 1.Access the email account you provided upon registration to the hospital.2.Look for an invitation email from [facility].3.Open the email and access the invitation link: Accept Invitation to [facility]4.Fill in the required azul to create your account. Sign into [email or web address] with your username and password that you created in the above steps to stay up to date. You can then view a summary of results, a summary of your visits, and the ability to download your summaries to your computer or send the information securely to a physician. Remember that your healthcare information is confidential, so carefully consider who you will allow to register on the [facility] Patient Portal for access to your information. You can also access the [facility] Patient Portal on the triptap leslie. Simply click on Health Records under Health Data and then click on the [employer] logo. HOW TO SAFELY DISPOSE OF PRESCRIPTION MEDICATIONS Please use one of the following methods to safely dispose of your unused medications. 1.Use a drug disposal kit: the drug disposal pouch allows you to safely discard your old and unused drugs. Ask your nurse to give you one when you are discharged.2.Visit a local take-back location: Many local pharmacies and police departments have programs that collect old and unwanted prescription drugs. Call your local pharmacy or go to http://bit.CMGE/0F7At9r to find one close to you.3.Make use of household items: Use cat litter or old coffee grounds to dispose medications if other options are not available. Mix your drugs with these household products, seal them in an airtight container and throw it into the garbage. Call [facility]: [phone] to be sure your drugs can be disposed of in this way. Some medicines may require a different approach.4.Never flush your medications down the toilet. IF YOU HAVE BEEN PRESCRIBED AN OPIOIDS FOR PAIN If you have been prescribed an opioid (such as hydrocodone, oxycodone or morphine), it is critical to understand the possible side effects and risks of opioid pain medications. Even when taken as directed, opioids can have several side effects including: Tolerance, meaning you might need to take more of a medication for the same pain relief. Nausea, vomiting and/or constipation. Sleepiness, dizziness, dry mouth, confusion, depression or itching. Physical dependence, meaning you have withdrawal symptoms when a medication is stopped ? this can develop within a few days. KNOW YOUR RESPONSIBILITIES It is important to know exactly how much and how often to take the opioid pain medications you are prescribed. Never take opioids in higher amounts or more often than prescribed. Do not combine opioids with alcohol or other drugs that cause drowsiness, such as benzodiazepines, also known as benzos, including diazepam and alprazolam, muscle relaxants or sleep aids. Never sell or share prescription opioids. This is illegal. Store opioids in a secure place and out of reach of others (including children, family, friends and visitors). The last page(s) of this document has been signed and retained as a CHART COPY Signatures Patient Education Materials Diabetes with High Blood Sugar Abdominal Pain Medication Leaflets My discharge plan and instructions have been reviewed and explained to me and IMATY AMANDA M understand my current condition and have read and understand these discharge instructions. I have received a written copy of the plan/instructions. If I have questions, I am aware that I should contact my doctor. 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 - Do not drink any alcoholic drinks. - Do not take any over the counter medications that may cause drowsiness. - Do not make any important decisions or sign any legal documents. - You need to have a responsible adult accompany you home. - You may resume your normal diet. - We strongly suggest that a responsible adult be with you for the rest of the day and also during the night. This is for your protection and safety. Refer to [facility] patient information sheet for further discharge instructions. For questions related to your procedure: Please call [phone] between the hours of 7:00am-5:00pm Tuesday through Tuesday. Please call [phone] after 5:00pm and on weekends and holidays. In the event of an emergency call 911 or go to your nearest emergency room. documented in this encounter [facility] Work Phone: 08-19-2023 Nurse Note Doctor cancel appt due to patient not prepped for procedure. All not ified doctor will be in to see patient prior to her leaving. documented in this encounter [facility] Work Phone: 08-11-2023 Note . MICRO - Microbiology PROCEDURE: Urine Culture [*1] SOURCE: Urine, Clean Catch BODY SITE: COLLECTED DATE/TIME: 08/09/2023 16:26 EST RECEIVED DATE/TIME: 08/09/2023 22:19 EST START DATE/TIME: 08/09/2023 22:19 EST FREE TEXT SOURCE: FINAL REPORTS Final Report [] Verified Date/Time/Personnel: 08/11/2023 07:37 EST <10,000 cfu/ml. No Significant growth. Sensitivity not indicated. PRELIMINARY REPORTS Preliminary Report [] Verified Date/Time/Personnel: 08/10/2023 10:51 EST Culture results pending. Performing Locations *1: This test was performed at: [facility], [address] [place] [address], [facility] , [facility] ([place]) 08-03-2023 History of Present illness Narrative Gastroenterology Clinic Consult Note Reason For Consult pancreatitis History Of Present Illness Dorothea Rutledge is a 47 y.o. female with a past medical history of factor V Leiden on xarelto, seizures, anxiety and depression and recurrent pancreatitis here for follow-up after a recent hospitalization. Patient was transferred from [facility] in March for worsening symptoms of abdominal pain and abnormal imaging of her pancreas including fluid collections and edema. An IgG4 level was mildly elevated at 110. The patient is status postcholecystectomy in the past patient had noted ongoing pain and CT scan had revealed a 3 cm fluid collection near the head of the pancreas as well as necrotic fluid collection in that area as well. Her bile duct has been noted to be 1.3 cm and there is evidence of hepatomegaly on imaging. She did undergo an endoscopic ultrasound during her admission which confirmed these findings did not reveal any other pathology. Findings were not thought to be consistent with an autoimmune pancreatitis. She has had mild elevations of her lipase. She has been to the emergency room a number of times since her hospitalization for pain control. She was admitted twice in April for symptoms of abdominal pain and for pain control. Patient notes since 2013 she has had yearly episodes of pancreatitis which have been mild. Since January she has had more frequent exacerbations of pain. Given she was initially diagnosed in early January with pancreatitis and then was readmitted 2 weeks later and found to have necrotizing pancreatitis on imaging. She has had ongoing symptoms of pain since that time. Patient does have a history of narcotic dependence in the past and had been on Suboxone. She was admitted to the hospital in May for worsening abdominal pain and was treated symptomatically for pancreatitis. The admitting physician did make a note of patient obtaining prescriptions from a number of physicians pharmacies. She had also been admitted to hospital in April for drug-induced psychosis. She has been following with the pain team and receiving ketamine infusions. The patient is here in follow-up and notes she was recently admitted to [facility] with a flare of pancreatitis. She expresses frustration about her follow-up with pain management as she has a PICC line in place but has not been able to have a port placed. She has had 1 ketamine infusion which did seem to help her symptoms a bit and the next one is scheduled in August. She does note ongoing epigastric pain with occasional vomiting. She also has intermittent constipation and remains on Linzess. She notes having oral sores from taking Creon and has stopped her pancreatic enzymes. She denies any alcohol use but does vape. We had a mirna discussion about her ongoing pancreatitis. I did discuss the need to avoid narcotics given her history patient does express frustration about this but is open to alternative treatments. Past Medical History She has a past medical history of Depression, Factor V Leiden ([facility]), Pancreatitis, Seizure ([facility]), and Stroke ([facility]). Surgical History She has a past surgical history that includes MR angio neck wo IV contrast (10/16/2017); MR angio head wo IV contrast (10/16/2017); US guided percutaneous placement (06/08/2019); and Hysterectomy. Social History She reports that she has never smoked. She has never used smokeless tobacco. She reports that she does not currently use alcohol. She reports current drug use. Drug: Marijuana. Family History Family History Problem Relation Name Age of Onset Coronary artery disease Mother Allergies Morphine, Sulfa (sulfonamide antibiotics), Neurontin [gabapentin], Other, and Penicillins Home Medications (Not in a hospital admission) Review of Systems Review of Systems Constitutional: Negative. HENT: Negative. Eyes: Negative. Respiratory: Negative. Gastrointestinal: As mentioned in HPI Genitourinary: Negative. Musculoskeletal: Negative. Skin: Negative. Hematological: Negative. Psychiatric/Behavioral: Positive for agitation. Physical Exam General: well-nourished, no acute distress obese HEENT: PERRLA, EOM intact, no scleral icterus, moist MM Respiratory: CTA bilaterally, normal work of breathing Cardiovascular: RRR, no murmurs/rubs/gallops Abdomen: Soft, nondistended, bowel sounds present, no masses palpated, no organomeagly diffuse tenderness Extremities: no edema, no asterixis Neuro: alert and oriented, CNII-XII grossly intact, moves all 4 extremities with no focal deficits Last Recorded Vitals There were no vitals taken for this visit. Relevant Results Current Outpatient Medications: acetaminophen (Tylenol) 325 mg tablet, TAKE 2 TABLETS BY MOUTH EVERY 8 HOURS, Disp: 30 tablet, Rfl: 0 albuterol 90 mcg/actuation inhaler, Inhale 2 puffs into the lungs every 6 hours as needed for Wheezing or Shortness of Breath (Space out to every 6 hours as symptoms improve) Space out to every 6 hours as symptoms improve., Disp: , Rfl: ALPRAZolam (Xanax) 1 mg tablet, Take 1 tablet (1 mg) by mouth 2 times a day., Disp: , Rfl: ARIPiprazole (Abilify) 10 mg tablet, Take 1 tablet (10 mg) by mouth once daily., Disp: , Rfl: ascorbic acid (Vitamin C) 1,000 mg tablet, Take 1 tablet (1,000 mg) by mouth once daily at bedtime., Disp: , Rfl: atorvastatin (Lipitor) 40 mg tablet, Take 1 tablet (40 mg) by mouth once daily., Disp: , Rfl: benztropine (Cogentin) 0.5 mg tablet, Take 1 tablet (0.5 mg) by mouth 2 times a day., Disp: , Rfl: buprenorphine-naloxone (Zubsolv) 8.6-2.1 mg SL tablet, Place 2 tablets under the tongue once daily., Disp: , Rfl: buPROPion SR (Wellbutrin SR) 150 mg 12 hr tablet, Take 1 tablet (150 mg) by mouth 2 times a day., Disp: , Rfl: buPROPion XL (Wellbutrin XL) 150 mg 24 hr tablet, Take 1 tablet (150 mg) by mouth once daily in the morning. Take before meals., Disp: , Rfl: busPIRone (Buspar) 10 mg tablet, Take 1 tablet (10 mg) by mouth 3 times a day., Disp: , Rfl: nzvhbydcrf-soodrhlantlpf-eapc 50-325-40 mg tablet, Dose = 1 tab(s), Oral, q4h, PRN as needed, in absence of pcp, # 180 tab(s), 0 Refill(s), Pharmacy: [id number], 160, cm, 11/12/22 21:20:00 EST, Height, kg, 11/12/22 21:20:00 EST, Dosing Weight, Disp: , Rfl: cholecalciferol (Vitamin D-3) 1,250 mcg (50,000 unit) capsule, Dose : 1,250 mcg = 1 cap(s), Oral, Tuesday, # 13 cap(s), 3 Refill(s), Pharmacy: [facility], 160, cm, 01/24/23 14:30:00 EDT, Height, kg, 01/24/23 14:30:00 EDT, Dosing Weight, Disp: , Rfl: clonazePAM (KlonoPIN) 0.5 mg tablet, Take one tablet as needed for prolonged convulsive seizure or cluster or 3 or more seizures in 24 hours. Do not exceed more than 1 tablet per day. 10 tablets per 30 days., Disp: , Rfl: clonazePAM (KlonoPIN) 1 mg tablet, Take 1 tablet (1 mg) by mouth once daily at bedtime., Disp: , Rfl: cyclobenzaprine (Flexeril) 5 mg tablet, TAKE 1 TABLET BY MOUTH THREE TIMES A DAY NEEDED FOR RESTLESS LEG SYNDROME OR EXTRAPYRAMIDAL, Disp: 30 tablet, Rfl: 0 divalproex (Depakote) 250 mg EC tablet, Take 1 tablet (250 mg) by mouth 2 times a day., Disp: , Rfl: doxepin (SINEquan) 50 mg capsule, Take 1 capsule (50 mg) by mouth once daily at bedtime., Disp: , Rfl: enoxaparin (Lovenox) 80 mg/0.8 mL syringe, 0.8 mL (80 mg)., Disp: , Rfl: fenofibrate (Tricor) 145 mg tablet, 1 tablet (145 mg)., Disp: , Rfl: fluconazole (Diflucan) 150 mg tablet, TAKE 1 TABLET BY MOUTH ONCE THEN REPEAT IN 1 (ONE) WEEK, Disp: , Rfl: fluticasone (Flonase) 50 mcg/actuation nasal spray, Administer 2 sprays into each nostril once daily., Disp: , Rfl: furosemide (Lasix) 80 mg tablet, Take 0.5 tablets (40 mg) by mouth once daily., Disp: , Rfl: hydroCHLOROthiazide (HYDRODiuril) 25 mg tablet, Take 1 tablet (25 mg) by mouth once daily., Disp: , Rfl: HYDROcodone-acetaminophen (Joppa) 5-325 mg tablet, Take 1 tablet by mouth every 4 hours if needed., Disp: , Rfl: lacosamide (Vimpat) 100 mg tablet, 1 tab in am and 2 tabs in pm, Disp: , Rfl: lactulose 10 gram/15 mL solution, Take 45 mLs ONCE A DAY for Constipation, Disp: , Rfl: lidocaine (Lidoderm) 5 % patch, Place 1 patch onto the skin daily 12 hours on, 12 hours off., Disp: , Rfl: magnesium oxide (Mag-Ox) 400 mg tablet, Take 1 tablet (400 mg) by mouth once daily., Disp: , Rfl: methocarbamol (Robaxin) 500 mg tablet, Take 2 tablets (1,000 mg) by mouth 4 times a day., Disp: , Rfl: metoprolol succinate XL (Toprol-XL) 25 mg 24 hr tablet, Take 1 tablet (25 mg) by mouth once daily., Disp: , Rfl: metoprolol tartrate (Lopressor) 25 mg tablet, Take 1 tablet (25 mg) by mouth twice a day., Disp: , Rfl: metroNIDAZOLE (Flagyl) 500 mg tablet, Take 1 tablet (500 mg) by mouth every 12 hours., Disp: , Rfl: mirtazapine (Remeron) 7.5 mg tablet, Take 1 tablet (7.5 mg) by mouth once daily at bedtime., Disp: , Rfl: naloxone (Narcan) 4 mg/0.1 mL nasal spray, INSTILL 1 SPRAY IN ONE NOSTRIL NEEDED FOR ACCIDENTAL OPIOID OVERDOSE; REPEAT WITH SECOND DOSE IN 5 MINUTES IF NO RESPONSE, Disp: 2 each, Rfl: 0 naloxone (Narcan) 4 mg/0.1 mL nasal spray, USE 1 SPRAY (4 MG) INTRANASALLY ONCE, NEEDED FOR OPIOID OVERDOSE, Disp: 2 each, Rfl: 0 naloxone (Narcan) 4 mg/0.1 mL nasal spray, INSTILL 1 SPRAY IN ONE NOSTRIL NEEDED FOR ACCIDENTAL OPIOID OVERDOSE; REPEAT WITH SECOND DOSE IN 5 MINUTES IF NO RESPONSE, Disp: 2 each, Rfl: 0 nicotine (Nicoderm CQ) 21 mg/24 hr patch, APPLY 1 PATCH ON THE SKIN EVERY 24 HOURS, Disp: 28 patch, Rfl: 0 nitrofurantoin, macrocrystal-monohydrate, (Macrobid) 100 mg capsule, 1 capsule (100 mg)., Disp: , Rfl: nortriptyline (Pamelor) 25 mg capsule, TAKE 1 CAPSULE BY MOUTH EVERY NIGHT AT BEDTIME, Disp: 30 capsule, Rfl: 0 omeprazole (PriLOSEC) [address] capsule, 1 capsule (40 mg)., Disp: , Rfl: ondansetron (Zofran) 4 mg tablet, Take 1 tablet (4 mg) by mouth every 8 hours if needed., Disp: , Rfl: ondansetron ODT (Zofran-ODT) 8 mg disintegrating tablet, DISSOLVE 1 TABLET IN MOUTH BY MOUTH THREE TIMES A DAY NEEDED FOR NAUSEA, Disp: 20 tablet, Rfl: 0 ondansetron ODT (Zofran-ODT) 8 mg disintegrating tablet, DISSOLVE 1 TABLET IN MOUTH THREE TIMES A DAY NEEDED FOR NAUSEA, Disp: 20 tablet, Rfl: 0 OXcarbazepine (Trileptal) 150 mg tablet, , Disp: , Rfl: oxyCODONE (Roxicodone) 15 mg immediate release tablet, TAKE 1 TABLET BY MOUTH EVERY 6 HOURS NEEDED FOR SEVERE PAIN (7-10), Disp: 15 tablet, Rfl: 0 oxyCODONE (Roxicodone) 5 mg immediate release tablet, TAKE 1 TABLET BY MOUTH EVERY 4 HOURS NEEDED FOR MODERATE PAIN (4-6), Disp: 15 tablet, Rfl: 0 oxyCODONE-acetaminophen (Percocet) 5-325 mg tablet, Take 1 tablet by mouth every 6 hours if needed., Disp: , Rfl: pancrelipase, Dqv-Kfzs-Aabj, (Creon) 12,000-38,000 -60,000 unit capsule, TAKE 3 CAPSULES BY MOUTH THREE TIMES A DAY WITH MEALS, Disp: 270 capsule, Rfl: 0 pancrelipase, Xsx-Eyry-Wspj, (Creon) 12,000-38,000 -60,000 unit capsule, TAKE 3 CAPSULES BY MOUTH THREE TIMES A DAY WITH MEALS, Disp: 270 capsule, Rfl: 0 pancrelipase, Blo-Vtth-Qcpe, (Creon) 12,000-38,000 -60,000 unit capsule, TAKE 3 CAPSULES BY MOUTH THREE TIMES A DAY WITH MEALS, Disp: 270 capsule, Rfl: 0 potassium chloride ER (Micro-K) 10 mEq ER capsule, Take 2 capsules (20 mEq) by mouth once daily., Disp: , Rfl: pregabalin (Lyrica) 100 mg capsule, Take 1 capsule (100 mg) by mouth., Disp: , Rfl: promethazine (Phenergan) 25 mg tablet, Take 1 tablet (25 mg) by mouth 2 times a day., Disp: , Rfl: propranolol LA (Inderal LA) 60 mg 24 hr capsule, Take 1 capsule (60 mg) by mouth once daily., Disp: , Rfl: risperiDONE (RisperDAL) 0.5 mg tablet, , Disp: , Rfl: spironolactone (Aldactone) 25 mg tablet, , Disp: , Rfl: topiramate (Topamax) 25 mg tablet, Take 1 tablet (25 mg) by mouth 2 times a day., Disp: , Rfl: traZODone (Desyrel) 100 mg tablet, Take 2 tablets (200 mg) by mouth once daily at bedtime., Disp: , Rfl: valACYclovir (Valtrex) 500 mg tablet, 1 tablet (500 mg)., Disp: , Rfl: vancomycin (Vancocin) 250 mg capsule, , Disp: , Rfl: Vascepa 1 gram capsule, , Disp: , Rfl: warfarin (Coumadin) 1 mg tablet, Take 3.5 tablets (3.5 mg) by mouth., Disp: , Rfl: Lab Results Component Value Date WBC 11.9 (H) 07/05/2023 HGB 15.0 07/05/2023 HCT 46.2 (H) 07/05/2023 MCV 90 07/05/2023 PLT 531 (H) 07/05/2023 Lab Results Component Value Date GLUCOSE 141 (H) 07/05/2023 CALCIUM 10.0 07/05/2023 NA 134 (L) 07/05/2023 K 3.9 07/05/2023 CO2 21 07/05/2023 CL 95 (L) 07/05/2023 BUN 26 (H) 07/05/2023 CREATININE 0.92 07/05/2023 Lab Results Component Value Date ALT 44 07/05/2023 AST 33 07/05/2023 ALKPHOS 109 07/05/2023 BILITOT 0.4 07/05/2023 Imaging: CT abdomen pelvis w IV contrast Result Date: 07/05/2023 STUDY: CT Abdomen and Pelvis with IV Contrast; 07/05/2023 7:42 PM INDICATION: Abdominal pain. COMPARISON: CT abdomen/pelvis 06/15/2023. US renal bilateral 05/14/2023. ACCESSION NUMBER(S): [id number] ORDERING CLINICIAN: SARAH HO TECHNIQUE: CT of the abdomen and pelvis was performed. Contiguous axial images were obtained at 3 mm slice thickness through the abdomen and pelvis. Coronal and sagittal reconstructions at 3 mm slice thickness were performed. Omnipaque 350, 75 mL was administered intravenously. Findings: Heart size normal. No pericardial effusion. Subsegmental atelectasis medial segment RIGHT middle lobe. Abdomen: Hepatic steatosis. No intrahepatic ductal dilatation identified. Gallbladder surgically absent. Fluid attenuating lesions within the region of the pancreatic head and uncinate process measuring approximately. The first measuring approximately 4.2 x 4.5 cm the second measuring 3.5 x 3.5 cm. Edematous changes and question fluid along the lesser curvature of the stomach. No significant adenopathy. Decrease in size of a 2 cm fluid collection adjacent to the proximal of the RIGHT hemidiaphragm. No acute renal process. No retroperitoneal adenopathy. No findings of abdominal aortic aneurysm. Inferior vena cava filter. No bowel obstruction. No free air or free fluid within the abdomen. The appendix is not visualized. No acute abnormality in its expected location. Pelvis: CT examination of the pelvis shows no free fluid. No findings of adenopathy or mass. No inflammatory change or findings of free air. Skeleton: No acute bony process identified. Fluid attenuating lesions within the region of the pancreatic head and uncinate process measuring approximately. These measuring approximately 4.2 x 4.5 cm the slightly more inferior collection measuring 3.5 x 3.5 cm. Edematous changes and question fluid along the lesser curvature of the stomach. No significant adenopathy. Decrease in size of a 2 cm fluid collection adjacent to the kyler the RIGHT hemidiaphragm. The appearance suggest pseudocyst formation and pancreatitis of otherwise similar appearance to the 06/15/23 examination. Difficult to completely exclude underlying malignant process. Continued follow-up recommended. Hepatic steatosis. No intrahepatic ductal dilatation identified. Gallbladder surgically absent. Signed by Andreea Winter MD ASSESSMENT/PLAN: 1. Acute on chronic pancreatitis etiology somewhat unclear although the patient does have a history of alcohol abuse in the past but has not recently. This does not appear to be autoimmune pancreatitis even in the setting of mild elevation of IgG4. There are number of fluid collections around her pancreas and she has ongoing pain. This is complicated by history of narcotic abuse and recent admission for drug induced psychosis. I will need to reevaluate the fluid collections and ongoing pancreatitis. I would also like to repeat her IgG4 level to assess this. 2. Multiple medical problems including factor V Leiden with PE, CVA, seizure disorder. Recommendations: 1. I will obtain recent MRI result. 2. I will obtain recent lab testing on her hospitalization. 3. We will repeat CBC, IgG4, lipase level and CBC. 4. Give a trial of Viokase 3 pills 3 times daily. 5. 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 I will contact the patient at that point in regards to other interventions. 6. Office follow-up in 3 months. I spent 60 minutes in the professional and overall care of this patient. Colton Hicks MD documented in this encounter [facility] Work Phone: 08-03-2023 Instructions Colton Hicks MD - 08/03/2023 8:00 AM EST Thank you for coming in today. I would like to get some blood work to update your labs. I will also obtain your recent MRI results. I will discuss your case with your pain management provider to help coordinate your care. I would like to see you back in the office in 3 months and I will be calling you in the next 1 to 2 weeks when I have your results back. Patient is here in follow-up and notes she was recently admitted to [facility] with pancreatitis. I do not have these records to review. documented in this encounter [facility] Work Phone: 06-29-2023 Miscellaneous Notes The following approved medication requests have been transmitted electronically. Requested Prescriptions Refused Prescriptions Disp Refills clonazePAM (KLONOPIN) 0.5 mg tablet 10 tablet 0 Sig: Take one tablet as needed for prolonged convulsive seizure or cluster or 3 or more seizures in 24 hours. Do not exceed more than 1 tablet per day. 10 tablets per 30 days. Refused By: ALAINA TOMLIN Reason for Refusal: A Refill not appropriate Alaina Tomlin APRN.HAMLET Prescription Refill: Requested by: patient Please E-Scribe Caller Contact Number: Pharmacy Name: [facility] [place] [facility] Number: [id number] Generic/ brand: Generic 30 or 90 day supply requested: 30 Last appointment: 11/20/21 Next Appointment: 07/08/[address] Aldrich documented in this encounter [facility] 06-17-2023 Note Clinical Event: Clinical Event Note: TopicGI evaluation note Details Pt is tolerating PO intake. Admission labs without any signs of pancreatitis. MRCP is non-urgent and can be done outpatient. Order is placed from outpatient EMR. Pt has outpatient GI follow up. Electronic Signatures: Sapna Hernandez ( (Fellow)) (Signed 17-Jun-2023 18:17) Authored: Clinical Event Note Last Updated: 17-Jun-2023 18:17 by Sapna Hernandez ( (Fellow)) [facility] 06-17-2023 Note Clinical Event: Clinical Event Note: TopicChart evaluation due to discharge evaluation Details Mrs Rutledge is a 47 year old female with hx of recurrent pancreatitis. She has had multiple admission for abdominal/chronic pancreatitis. Her CT images remain with close proximity findings of the prior findings. Her serum lipase is 67. After all interventions she continues to report 7/10 pain but there is no physical correlation to her report as she is resting comfortably and tolerating diet (documented in pain management note too and nurses reports). Nurse has reported patient has no evidence of tachycardia, Diaphoresis or any other indication of pain other than her verbal report. She is tolerating her diet with no evidence of nausea/vomiting . GI is currently recommending outpatient follow up. Chronic pain has recommended to deescalate any opiate therapy due to behavior concerns and having her license suspended for benzodiazapine and opiate use. I agree patient needs to be discharge at this time. There is no further medical inpatient need. DOC HALO ADELINA THOMPSON Electronic Signatures: Adelina Thompson () (Signed 17-Jun-2023 11:51) Authored: Clinical Event Note Last Updated: 17-Jun-2023 11:51 by Adelina Thompson (DO) [facility] 06-16-2023 Hospital course Narrative Send Summary: Discharge Summary Providers: Provider Role Provider Name Referring Correct Info, Needed Attending Chastity León Primary Cj Rivera Consulting Gastroenterology Consult Team Note Recipients: Correct Info, Needed, Cj Ratliff, [facility] - [phone] [] Discharge: Summary: Admission Date: .14-Jun-2023 14:23:00 Discharge Date: 16-Jun-2023 Attending Physician at Discharge: Chastity León Admission Reason: Abdominal pain Final Discharge Diagnoses: Chronic Pancreatitis Chronic abdominal pain Procedures: none Condition at Discharge: Satisfactory Disposition at Discharge: .Home Vital Signs: T P R BP MAP SpO2 Value 36.1 78 16 132/89 103 94% Date/Time 06/16 16:18 06/16 16:18 06/16 16:18 06/16 16:18 06/16 16:18 06/16 16:18 Range (36C - 36.5C ) (71 - 92 ) (16 - 18 ) (113 - 141 )/ (68 - 89 ) (84 - 103 ) (93% - 96% ) Date: Weight/Scale Type: Height: 15-Jun-2023 04:21 96 kg / bed 159.9 cm Physical Exam: on the day of discharge patients vitals were stable. BP 132/89, CVS S1, S2, no murmurs, Lungs clear, Abdomen soft, minimal tenderness upper abdomen, no rigidity, no guarding, no ankle edema. Alert and oriented x 3. 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 She reported the pain as mainly in the epigastric region, with radiation to her right back and right shoulder. She endorses the pain as similar to prior pancreatitis flares, this episode worse in severity. There was associated nausea, subjective fever, and a week of watery nonbloody stools, which she reported she often has with pancreatitis flares. She denied chest pain, cough, dyspnea. Of note, she was recently treated for UTI followed by BV and was taking flagyl. She reported that the vaginal discharge was improved. Notably, she was discharged from Hospitalist service on 05/16/2023, as well as 04/28/2023 for acute on chronic pancreatitis. Also of note, she was evaluated for similar complaints at [facility] on 05/07/2023, where she reported an allergy to Morphine, as well as a visit to [facility] on 04/29/2023. She reported being recently admitted at [facility] (05/07-05/09) for drug induced psychosis (PCP) and previously for methamphetamine, but denied any recent drug use. Most recently, she visited [facility] [facility] ([place]) on 05/19, 05/23, and 06/03, with her being informed the ED was not appropriate for pain management according to the ED note available in [facility]. She was also evaluated at pain management on 05/25, with no opiates ordered. 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 She endorses vaping, denies EtOH, endorses medical marijuana (Not confirmed by OARRS) OAARS was reviewed. Overdose score 610 (500 narcotic, 681 sedative). There were 71 entries for prescriptions from 21 providers, filled at 7 different pharmacies. On exam in [facility] RM 342, patient endorsed only abdominal pain and bilateral hand swelling. She was resting in bed comfortably. After discussing the plan of care with her, she inquired what about pain medication in the mean time? She reported receiving lidocaine, ketamine, and propofol infusions at pain management. Consistent with last admission, patient reported medications that cannot be verified in OARRS. On the floor she tolerated her diet without any issues during her stay on the medicine floor on 06/15 and 06/16. Her labs showed no evidence of acute process with normal WBC, normal lipase and CRP. She was prescribed oral oxycodone 5mg PRN during the stay. Chronic pain management was involved, and they evaluated her and advised out patient f/u to continue with ketamine infusions. She refused non-opiate pain management options. She was on Xarelto due to factor V Leiden, and she was advised out patient f/u in GI clinic for chronic pancreatitis changes on abdominal CT. GI team was in agreement for out patient work up with MRCP for the pancreatic changes found on CT abdomen. Advised to continue creon supplements prior to meals. Patient was in agreement with the plan. Discharged home in a stable condition with oxycodone prescriptions to use PRN QHS for pain. Advised f/u with pain management and Gastroenterology clinic. Discharge day management time > 30 minutes. Discharge Information: and Continuing Care: Lab Results - Pending: None Radiology Results - Pending: None Discharge Instructions: Activity: activity as tolerated. Weight-bearing Instructions: full weight bearing. Nutrition/Diet: low fat Follow Up Appointments: Follow-Up Appointment 01: Physician/Dept/Service: Gastroenterology clinic Scheduled Date/Time: 06-Jul-2023 09:40 Location: [facility] [address] Follow-Up Appointment 02: Physician/Dept/Service: Pain management clinic Call to Schedule in: 2 weeks Scheduled Date/Time: 05-Jul-2023 13:30 Location: [facility]. Discharge Medications: Home Medication cloNIDine 0.2 mg oral tablet - 1 tab(s) orally once a day metoprolol succinate 25 mg oral tablet, extended release - 1 tab(s) orally once a day potassium chloride 20 mEq oral tablet, extended release - 1 tab(s) orally 3 times a day ascorbic acid 1000 mg oral tablet - 1 tab(s) orally once a day fenofibrate 145 mg oral tablet - 1 tab(s) orally once a day lacosamide 100 mg oral tablet - take 1 tablet by mouth once in the morning and 2 tablets in the evening omeprazole 40 mg oral delayed release capsule - 1 cap(s) orally 2 times a day furosemide 40 mg oral tablet - 1 tab(s) orally once a day hydroCHLOROthiazide 25 mg oral tablet - 1 tab(s) orally once a day ARIPiprazole 10 mg oral tablet - 1 tab(s) orally once a day for Mood / Psychosis rOPINIRole 0.5 mg oral tablet - 1 tab(s) orally 2 times a day menthol-benzocaine 3.6 mg-15 mg mucous membrane lozenge - mucous membrane pancrelipase 12,000 units-38,000 units-60,000 units oral delayed release capsule - 3 cap(s) orally 3 times a day (with meals) Linzess 290 mcg oral capsule - 1 cap(s) orally once a day Valtrex 500 mg oral tablet - 1 tab(s) orally once a day Vitamin D3 1250 mcg (50,000 intl units) oral capsule - 1 cap(s) orally once a week on Tuesday Depakote 250 mg oral delayed release tablet - 1 tab(s) orally 2 times a day magnesium glycinate 200 mg oral tablet - 1 tab(s) orally once a day (at bedtime) mirtazapine 7.5 mg oral tablet - 1 tab(s) orally once a day (at bedtime) venlafaxine 150 mg oral tablet, extended release - 1 tab(s) orally once a day with 75mg for total of 225mg daily venlafaxine 75 mg oral capsule, extended release - 1 cap(s) orally once a day with 150mg for total of 225mg daily Xarelto 10 mg oral tablet - 1 tab(s) orally once a day PRN Medication oxyCODONE 5 mg oral tablet - 1 tab(s) orally every 6 hours, As Needed -Severe pain (7-10) acetaminophen 500 mg oral tablet - 2 tab(s) orally every 8 hours, As Needed for pain benztropine 0.5 mg oral tablet - 1 tab(s) orally once a day (at bedtime), As Needed for EPS Melatonin 10 mg oral tablet - 1 tab(s) orally once a day (at bedtime), As Needed - for sleep / insomnia diphenhydrAMINE 25 mg oral tablet - 3 tab(s) orally once a day (at bedtime), As Needed - for allergy symptoms lactulose 10 g/15 mL oral syrup - 15 milliliter(s) orally 2 times a day, As Needed - for constipation nicotine 7 mg/24 hr transdermal film, extended release - 1 patch transdermal once a day, As Needed for Tobacco Cravings promethazine 25 mg oral tablet - 1 tab(s) orally 2 times a day, As Needed - for nausea and vomiting DNR Status: Code Status Code Status order at time of discharge: Full Code Electronic Signatures: Chastity León) (Signed 16-Jun-2023 18:36) Authored: Send Summary, Summary Content, Ongoing Care, DNR Status, Note Completion Last Updated: 16-Jun-2023 18:36 by Chastity León) documented in this encounter [facility] Work Phone: 06-16-2023 Note Send Summary: Discharge Summary Providers: Provider RoleProvider Name ReferringCorrect Info, Needed Chastity Benitez Lindsey C ConsultingGastroenterology Consult Team Note Recipients: Correct Info, NeededMD Nicole Lindsey C, [facility] - [phone] [] Discharge: Summary: Admission Date: .14-Jun-2023 14:23:00 Discharge Date: 16-Jun-2023 Attending Physician at Discharge: Chastity León Admission Reason: Abdominal pain Final Discharge Diagnoses: Chronic Pancreatitis Chronic abdominal pain Procedures: none Condition at Discharge: Satisfactory Disposition at Discharge: .Home Vital Signs: T PRBPMAPSpO2 [id number]% Date/Time06/16 16: 16: 16: 16: 16: 16:18 Range(36C - 36.5C ) (71 - 92 ) (16 - 18 ) (113 - 141 )/ (68 - 89 ) (84 - 103 ) (93% - 96% ) Date: Weight/Scale Type:Height: 15-Jun-2023 04:2196 kg / cov032.9 cm Physical Exam: on the day of discharge patients vitals were stable. BP 132/89, CVS S1, S2, no murmurs, Lungs clear, Abdomen soft, minimal tenderness upper abdomen, no rigidity, no guarding, no ankle edema. Alert and oriented x 3. 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 She reported the pain as mainly in the epigastric region, with radiation to her right back and right shoulder. She endorses the pain as similar to prior pancreatitis flares, this episode worse in severity. There was associated nausea, subjective fever, and a week of watery nonbloody stools, which she reported she often has with pancreatitis flares. She denied chest pain, cough, dyspnea. Of note, she was recently treated for UTI followed by BV and was taking flagyl. She reported that the vaginal discharge was improved. Notably, she was discharged from Hospitalist service on 05/16/2023, as well as 04/28/2023 for acute on chronic pancreatitis. Also of note, she was evaluated for similar complaints at [facility] on 05/07/2023, where she reported an allergy to Morphine, as well as a visit to [facility] on 04/29/2023. She reported being recently admitted at [facility] (05/07-05/09) for drug induced psychosis (PCP) and previously for methamphetamine, but denied any recent drug use. Most recently, she visited [facility] ([place] on 05/19, 05/23, and 06/03, with her being informed the ED was not appropriate for pain management according to the ED note available in [facility]. She was also evaluated at pain management on 05/25, with no opiates ordered. 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 She endorses vaping, denies EtOH, endorses medical marijuana (Not confirmed by OARRS) OAARS was reviewed. Overdose score 610 (500 narcotic, 681 sedative). There were 71 entries for prescriptions from 21 providers, filled at 7 different pharmacies. On exam in [facility] RM 342, patient endorsed only abdominal pain and bilateral hand swelling. She was resting in bed comfortably. After discussing the plan of care with her, she inquired what about pain medication in the mean time She reported receiving lidocaine, ketamine, and propofol infusions at pain management. Consistent with last admission, patient reported medications that cannot be verified in OARRS. On the floor she tolerated her diet without any issues during her stay on the medicine floor on 06/15 and 06/16. Her labs showed no evidence of acute process with normal WBC, normal lipase and CRP. She was prescribed oral oxycodone 5mg PRN during the stay. Chronic pain management was involved, and they evaluated her and advised out patient f/u to continue with ketamine infusions. She refused non-opiate pain management options. She was on Xarelto due to factor V Leiden, and she was advised out patient f/u in GI clinic for chronic pancreatitis changes on abdominal CT. GI team was in agreement for out patient work up with MRCP for the pancreatic changes found on CT abdomen. Advised to continue creon supplements prior to meals. Patient was in agreement with the plan. Discharged home in a stable condition with oxycodone prescriptions to use PRN QHS for pain. Advised f/u with pain management and Gastroenterology clinic. Discharge day management time > 30 minutes. Discharge Information: and Continuing Care: Lab Results - Pending: None Radiology Results - Pending: None Discharge Instructions: Activity: activity as tolerated. Weight-bearing Instructions: full weight bearing. Nutrition/Diet: (more content not included)... [facility] 06-15-2023 Note Clinical Note - Vin ngo v2: Education: Document TopicMedication Education MedicationMeds to Beds: Patient declines Meds to Beds service at discharge. Sources used to confirm home medication list: Patient interview - fair historian of medications/ Pharmacy - [facility]/ Chart review/ OARRS - lacosamide 100mg #270/90 filled 05/10 Medication reconciliation complete Please reach out via [email or web address] for questions, or if no response call [phone] or [employer] Ann Marie Jimenez PharmD, Transitions of Care Pharmacist, [facility] Is This Intervention Medication Reconciliation Relatedyes [facility]ichistory Additional NotesDrug Name: cloNIDine 0.2 mg oral tablet Instructions: 1 tab(s) orally once a day Drug Name: methenamine hippurate 1 g oral tablet Instructions: 1 tab(s) orally once a day Drug Name: metoprolol succinate 25 mg oral tablet, extended release Instructions: 1 tab(s) orally once a day Drug Name: potassium chloride 20 mEq oral tablet, extended release Instructions: 1 tab(s) orally 3 times a day Drug Name: ascorbic acid 1000 mg oral tablet Instructions: 1 tab(s) orally once a day Drug Name: fenofibrate 145 mg oral tablet Instructions: 1 tab(s) orally once a day Drug Name: lacosamide 100 mg oral tablet Instructions: take 1 tablet by mouth once in the morning and 2 tablets in the evening Drug Name: omeprazole 40 mg oral delayed release capsule Instructions: 1 cap(s) orally 2 times a day Drug Name: Melatonin 10 mg oral tablet Instructions: 1 tab(s) orally once a day (at bedtime), As Needed - for sleep / insomnia Drug Name: diphenhydrAMINE 25 mg oral tablet Instructions: 3 tab(s) orally once a day (at bedtime), As Needed - for allergy symptoms Drug Name: lactulose 10 g/15 mL oral syrup Instructions: 15 milliliter(s) orally 2 times a day, As Needed - for constipation Drug Name: nicotine 7 mg/24 hr transdermal film, extended release Instructions: 1 patch transdermal once a day, As Needed for Tobacco Cravings Drug Name: promethazine 25 mg oral tablet Instructions: 1 tab(s) orally 2 times a day, As Needed - for nausea and vomiting Drug Name: furosemide 40 mg oral tablet Instructions: 1 tab(s) orally once a day Drug Name: hydroCHLOROthiazide 25 mg oral tablet Instructions: 1 tab(s) orally once a day Drug Name: ARIPiprazole 10 mg oral tablet Instructions: 1 tab(s) orally once a day for Mood / Psychosis Drug Name: benztropine 0.5 mg oral tablet Instructions: 1 tab(s) orally once a day (at bedtime), As Needed for EPS patient states using BID scheduled Drug Name: rOPINIRole 0.5 mg oral tablet Instructions: 1 tab(s) orally 2 times a day Drug Name: menthol-benzocaine 3.6 mg-15 mg mucous membrane lozenge Instructions: mucous membrane Drug Name: pancrelipase 12,000 units-38,000 units-60,000 units oral delayed release capsule Instructions: 3 cap(s) orally 3 times a day (with meals) Drug Name: acetaminophen 500 mg oral tablet Instructions: 2 tab(s) orally every 8 hours, As Needed for pain Drug Name: Xarelto 10 mg oral tablet Instructions: 1 tab(s) orally once a day Drug Name: Linzess 290 mcg oral capsule Instructions: 1 cap(s) orally once a day Drug Name: Valtrex 500 mg oral tablet Instructions: 1 tab(s) orally once a day Drug Name: Vitamin D3 1250 mcg (50,000 intl units) oral capsule Instructions: 1 cap(s) orally once a week on Tuesday Drug Name: Depakote 250 mg oral delayed release tablet Instructions: 1 tab(s) orally 2 times a day Drug Name: magnesium glycinate 200 mg oral tablet Instructions: 1 tab(s) orally once a day (at bedtime) Drug Name: mirtazapine 7.5 mg oral tablet Instructions: 1 tab(s) orally once a day (at bedtime) Drug Name: venlafaxine 150 mg oral tablet, extended release Instructions: 1 tab(s) orally once a day with 75mg for total of 225mg daily Drug Name: venlafaxine 75 mg oral capsule, extended release Instructions: 1 cap(s) orally once a day with 150mg for total of 225mg daily History Topichistory interview Allergy: Allergies Summary Allergy Allergen: penicillin Type: Drug Reaction: Rash Allergen: Neurontin Type: Drug Reaction: Swelling/Edema Allergen: sulfa drugs Type: Drug Category Reaction: Rash Electronic Signatures: Ann Marie Jimenez (PharmD) (Signed 15-Jun-2023 13:26) Authored: Education, Allergy Last Updated: 15-Jun-2023 13:26 by Ann Marie Jimenez (PharmD) [facility] 06-15-2023 Note Assessment Subjectiv e/Objective: Note Type: Education Note Authored by: Registered Dietitian [employer]oper Pager Number: [phone] Nutrition Note: Consult received via nursing admit screen per patient report of eating poorly and recent weight loss. Objective Information: Weights 06/15 4:21: Weight in kg (Weight (kg)) 96 06/15 4:21: Weight in lbs ((lbs)) 211.6 06/15 4:21: BMI (kg/m2) (BMI (kg/m2)) 37.546 Height/Weight: Height in inches: 63 inch(es) Height in cm: 159.9 centimeter(s) Weight (kg): 96 BMI (kg/m2): 37.546 square meter DBW (kg): 52.3 %DBW: 184 Adjusted BW: 63 Weight history/ % weight change: 06/15/23) 96kg 05/12/23) 96kg 04/06/23) 93.6kg Significant Weight Loss: no Recent Lab Results: Results: I have reviewed these laboratory results: Complete Blood Count + Differential 14-Jun-2023 20:16:00 ResultValue White Blood Cell Count 8.8 Nucleated Erythrocyte Count 0.0 Red Blood Cell Count 4.06 HGB 11.9 L HCT 36.0 MCV 89 MCHC 33.1 PLT 408 RDW-CV 13.2 Neutrophil % 65.2 Immature Granulocytes % 0.5 Lymphocyte % 23.8 Monocyte % 6.6 Eosinophil % 3.2 Basophil % 0.7 Neutrophil Count 5.72 Lymphocyte Count 2.09 Monocyte Count 0.58 Eosinophil Count 0.28 Basophil Count 0.06 Comprehensive Metabolic Panel 14-Jun-2023 20:16:00 ResultValue Glucose, Serum 116 H NA 138 K 3.9 CL 102 Bicarbonate, Serum 23 Anion Gap, Serum 17 BUN 20 CREAT 0.61 GFR Female >90 Calcium, Serum 9.0 ALB 4.0 ALKP 67 T Pro 6.5 T Bili 0.4 Alanine Aminotransferase, Serum 34 Aspartate Transaminase, Serum 20 Lipase, Serum 14-Jun-2023 20:16:00 ResultValue Lipase, Serum 67 C Reactive Protein, Serum 14-Jun-2023 20:16:00 ResultValue C Reactive Protein, Serum 0.91 Current Active Medications/PN: cloNIDine (CATAPRES), Tablet DOSE = 0.2 mg Oral Daily, 15-Jun-2023 Divalproex Sodium Del Rel (Depakote), Enteric Coated Tablet DOSE = 250 mg Oral 2 Times a Day Notes from Pharmacy: Low Risk Hazardous Drug- Single Nitrile Glove, 15-Jun-2023 Rivaroxaban, Tablet (XARELTO) DOSE = 10 mg Oral Daily, 15-Jun-2023 Lacosamide, Tablet (VIMPAT) DOSE = 200 mg Oral Every Night, 15-Jun-2023 Lacosamide, Tablet (VIMPAT) DOSE = 100 mg Oral Every Morning, 15-Jun-2023 diphenhydrAMINE, Capsule (BENADRYL) DOSE = 25 mg Oral Every 4 Hours, PRN Allergy Symptoms, 15-Jun-2023 Mirtazapine, Tablet (REMERON) DOSE = 7.5 mg Oral At Bedtime, 15-Jun-2023 Promethazine, Tablet (PHENERGAN) DOSE = 25 mg Oral Every 6 Hours, PRN Nausea, 15-Jun-2023 Venlafaxine Extended Release, Capsule, Extended Release (EFFEXOR XR) DOSE = 225 mg Oral Daily, 15-Jun-2023 Fenofibrate, Tablet (LOFIBRA) DOSE = 160 mg Oral Daily Notes from Pharmacy: Substitution for Fenofibrate 145 mg Capsule Daily, 15-Jun-2023 rOPINIRole (REQUIP), Tablet DOSE = 0.5 mg Oral 2 Times a Day, 15-Jun-2023 ARIPiprazole, Tablet (ABILIFY) DOSE = 10 mg Oral Daily, 15-Jun-2023 Metoprolol Succinate Extended Release, Tablet, Extended Release (TOPROL-XL) DOSE = 25 mg Oral Daily, 15-Jun-2023 valACYclovir (VALTREX), Tablet DOSE = 500 mg Oral Every 24 Hours, 15-Jun-2023 Furosemide, Tablet (LASIX) DOSE = 40 mg Oral Daily, 15-Jun-2023 hydroCHLOROthiazide, Tablet (ESIDRIX) DOSE = 25 mg Oral Daily, 15-Jun-2023 Linaclotide, Capsule (LINZESS) DOSE = 290 microgram(s) Oral Daily, 15-Jun-2023 Pancrelipase (Creon 12,000), Delayed Release Capsule (12,000 units - 38,000 units - 60,000 units) DOSE = 3 capsule(s) Oral 3 Times a Day With Meals, 15-Jun-2023 Potassium Chloride Extended Release, Tablet, Extended Release DOSE = 20 mEq Oral 2 Times a Day, 15-Jun-2023 Nicotine 7 mg/ 24 hour TransDermal, Film, Extended Release (NICODERM) DOSE = 1 patch TransDermal Every 24 Hours Notes from Pharmacy: [facility], 15-Jun-2023 Pantoprazole, Enteric Coated Tablet (PROTONIX) DOSE = 40 mg Oral 2 Times a Day, 15-Jun-2023 oxyCODONE Immediate Release, Tablet (OXYIR, ROXICODONE) DOSE = 5 mg Oral Every 6 Hours, PRN Pain - Severe (7-10), 15-Jun-2023 Ondansetron Injectable, (ZOFRAN) DOSE = 4 mg IntraVenous Push Every 6 Hours, PRN Nausea and/or Vomiting, 15-Jun-2023 Nutrition Orders: May Participate in Room Service, Yes Order entered from Admission Screens., 15-Jun-2023 Diet, Low Fat, 15-Jun-2023 Food/Nutrition Related History: Food/Nutrition Related History: Patient reported she doesn't usually eat breakfast and did not report example for lunch or dinner. Patient described studies regarding her plan for fasting for pancreatitis treatment. Patient recalls being on a low fat diet here in the hospital in the past but not at home. She described frustration when ordering meals that she was told she can't have any cheese, a rito salad and voiced concern that she won't get adequate protein. Today breakfast order consisted of OJ/cantaloupe/breakfast sandwich and vanilla polish yogurt. Lunch- cantaloup (more content not included)... 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 She reports the pain as mainly in the epigastric region, with radiation to her right back and right shoulder. She endorses the pain as similar to prior pancreatitis flares, but this is worse in severity. There is associated nausea, subjective fever, and a week of watery nonbloody stools, which she reports she often has with pancreatitis flares. She denies chest pain, cough, dyspnea. Of note, she was recently treated for UTI followed by BV and is currently taking flagyl. She reports the vaginal discharge has improved. Notably, she was discharged from our service on 05/16/2023, as well as 04/28/2023 for acute on chronic pancreatitis. Also of note, she was evaluated for similar complaints at [facility] on 05/07/2023, where she reported an allergy to Morphine, as well as a visit to [facility] on 04/29/2023. She reports being recently admitted at [facility] (05/07-05/09) for drug induced psychosis (PCP) and previously for methamphetamine, but denies any drug use and reports not understanding why these results were positive. Most recently, she visited [facility] ([place] on 05/19, 05/23, and 06/03, with her being informed the ED was not appropriate for pain management according to the ED note available in [facility]. She was also evaluated at pain management on 05/25, with no opiates ordered. 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 During the admission process for her most recent admission to our service, she was deceptive and provided incorrect medications not verified in [place]RS to the med rec team. She endorses vaping, denies EtOH, endorses medical marijuana (Not confirmed by OARRS) OAARS was reviewed. Overdose score 610 (500 narcotic, 681 sedative). There are 71 entries for prescriptions from 21 providers, filled at 7 different pharmacies. There are no current active opiate or benzodiazepine prescriptions listed in OARRS. On exam in [facility], patient endorses only abdominal pain and bilateral hand swelling. She is resting in bed comfortably. After discussing the plan of care with her, she inquired what about pain medication in the mean time? (Last dose of Dilaudid was given in the ED at 0350. She reports receiving lidocaine, ketamine, and propofol infusions at pain management. Consistent with last admission, patient reported medications that cannot be verified in [place]ARRS. Comorbidities: Comorbidites: Comorbid Conditions congestive heart failure, hypertension Type of Congestive Heart Failure diastolic CHF Additional Specificity N/A Acuity of CHF chronic Family History: Family History: reviewed and not pertinent to presenting problem Social History: Social History: Smoking Status light user (uses <10 cig/day, OR <0.5 ppd, OR 1 can/pouch loose leaf tobacco per week, OR <0.5 vape pods per day) (1) Alcohol Use history of abuse Drug Use history of abuse Drug 2 Use history of abuse Social History EtOH abuse history, opiate abuse history, benzodiazepine abuse history (unknown if active) Allergies: penicillin : Rash Neurontin : Swelling/Edema sulfa drugs: Rash Medications Prior to Admission: cholecalciferol 1250 mcg (50,000 intl units) oral capsule: 1 cap(s) orally once a week on Tuesday cloNIDine 0.2 mg oral tablet: 1 tab(s) orally once a day methenamine hippurate 1 g oral tablet: 1 tab(s) orally once a day metoprolol succinate 25 mg oral tablet, extended release: 1 tab(s) orally once a day potassium chloride 20 mEq oral tablet, extended release: 1 tab(s) orally 3 times a day ascorbic acid 1000 mg oral tablet: 1 tab(s) orally once a day fenofibrate 145 mg oral tablet: 1 tab(s) orally once a day lacosamide 100 mg oral tablet: take 1 tablet by mouth once in the morning and 2 tablets in the evening omeprazole 40 mg oral delayed release capsule: 1 cap(s) orally 2 times a day Melatonin 10 mg oral tablet: 1 tab(s) orally once a day (at bedtime), As Needed - for sleep / insomnia diphenhydrAMINE 25 mg oral tablet: 3 tab(s) orally once a day (at bedtime), As Needed - for allergy symptoms lactulose 10 g/15 mL oral syrup: 15 milliliter(s) orally 2 times a day, As Needed - for constipation nicotine 7 mg/24 hr transdermal film, extended release: 1 patch transdermal once a day, As Needed for Tobacco Cravings promethazine 25 mg oral tablet: 1 tab(s) orally 2 times a day, As Needed - for nausea and vomiting furosemide 40 mg oral tablet: 1 tab(s) orally once a day hydroCHLOROthiazide 25 mg oral tablet: 1 tab(s) orally once a day ARIPiprazole 10 mg oral tablet: 1 tab(s) orally once a day for Mood / Psychosis benztropine 0.5 mg oral tablet: 1 tab(s) orally once a day (at bedtime), As Needed for EPS rOPINIRole 0.5 mg oral tablet: 1 tab(s) orally 2 times a day menthol-benzocaine 3.6 mg-15 mg mucous membrane lozenge: mucous membrane pancrelipase 12,000 units-38,000 units-60,000 units oral delayed release capsule: 3 cap(s) orally 3 times a day (with meals) benzonatate 100 mg oral capsule: 1 cap(s) orally 3 times a day acetaminophen 500 mg oral tablet: 2 tab(s) orally every 8 hours, As Needed for pain Macrobid 100 mg oral capsule: 1 cap(s) orally 2 times a day, As Needed Xarelto 10 mg oral tablet: 1 tab(s) orally once a day Linzess 290 mcg oral capsule: 1 cap(s) orally once a day Effexor: 225 milligram(s) orally once a day Valtrex 500 mg oral tablet: 1 tab(s) orally once a day Vitamin D3 1250 mcg (50,000 intl units) oral capsule: 1 cap(s) orally once a week magnesium glycinate: null Depakote 250 mg oral delayed release tablet: 1 tab(s) orally 2 times a day Remeron: 7.5 milligram(s) orally once (at bedtime) Cogentin: orally 2 times a day. Review of Systems: Constitutional: POSITIVE: Fever; NEGATIVE: Chills Respiratory: NEGATIVE: Shortness of Breath Cardiac: NEGATIVE: Chest Pain Gastrointestinal: POSITIVE: Nausea, Abdominal Pain ; NEGATIVE: Vomiting, Diarrhea All Other Systems: All other systems reviewed and are negative Objective: Objective Information: T P R BP MAP SpO2 Value 36.1 92 18 130/86 96% Date/Time 06/14 14:34 06/15 0:15 06/15 0:15 06/15 0:15 06/15 0:15 Range (36.1C - 36.1C ) (85 - 92 ) (16 - 18 ) (130 - 149 )/ (86 - 96 ) (96% - 97% ) Physical Exam by System: Constitutional: Well developed, awake/alert/oriented x3, no distress, alert and cooperative Head/Neck: Neck supple, no apparent injury, thyroid without mass or tenderness, No JVD, trachea midline, no bruits Respiratory/Thorax: Patent airways, CTAB, normal breath sounds with good chest expansion, thorax symmetric Cardiovascular: Regular, rate and rhythm, no murmurs, 2+ equal pulses of the extremities, normal S 1and S 2 Gastrointestinal: Nondistended, soft, TTP RUQ, no rebound tenderness or guarding, no masses palpable, no organomegaly, +BS, no bruits Musculoskeletal: ROM intact, no joint swelling, normal strength Extremities: normal extremities, no cyanosis, contusions or wounds, no clubbing, non-pitting edema to bilateral hands Neurological: alert and oriented x3, intact senses, motor, response and reflexes, normal strength Psychological: Appropriate mood and behavior Skin: Warm and dry, no lesions, no rashes Medications: Medications: Continuous Medications No continuous medications are active Scheduled Medications 1. ARIPiprazole: 10 mg Oral Daily 2. cloNIDine (CATAPRES): 0.2 mg Oral Daily 3. Divalproex Sodium Del Rel (Depakote): 250 mg Oral 2 Times a Day 4. Fenofibrate: 160 mg Oral Daily 5. Furosemide: 40 mg Oral Daily 6. hydroCHLOROthiazide: 25 mg Oral Daily 7. Lacosamide: 200 mg Oral Every Night 8. Lacosamide: 100 mg Oral Every Morning 9. Linaclotide: 290 microgram(s) Oral Daily 10. Metoprolol Succinate Extended Release: 25 mg Oral Daily 11. Mirtazapine: 7.5 mg Oral At Bedtime 12. Nicotine 7 mg/ 24 hour TransDermal: 1 patch TransDermal Every 24 Hours 13. Pancrelipase (Creon 12,000): 3 capsule(s) Oral 3 Times a Day With Meals 14. Pantoprazole: 40 mg Oral 2 Times a Day 15. Potassium Chloride Extended Release: 20 mEq Oral 2 Times a Day 16. Rivaroxaban: 10 mg Oral Daily 17. rOPINIRole (REQUIP): 0.5 mg Oral 2 Times a Day 18. valACYclovir (VALTREX): 500 mg Oral Every 24 Hours 19. Venlafaxine Extended Release: 225 mg Oral Daily PRN Medications 1. Acetaminophen: 975 mg Oral Every 8 Hours 2. diphenhydrAMINE: 25 mg Oral Every 4 Hours 3. Promethazine: 25 mg Oral Every 6 Hours 4. Sodium Chloride 0.9% Injectable Flush: 10 mL IntraVenous Flush Every 8 Hours and as Needed Recent Lab Results: Results: CBC: 06/14/2023 20:16 \ Hgb / \ 11.9 L / WBC Plt 8.8 408 / Hct \ / 36.0 \ RBC: 4.06 MCV: 89 Neutrophil %: 65.2 CMP: 06/14/2023 20:16 NA+ Cl- BUN / 138 102 20 / Glucose 116 H K+ HCO3- Creat \ 3.9 23 0.61 \ \ T Bili / \ 0.4 / AST x ---- x ALT 20 x ---- x 34 / Alk P \ / 67 \ Calcium : 9.0 Anion Gap : 17 Albumin : 4.0 T Protein : 6.5 Radiology Results: Results: I have reviewed this radiology result: Impression: 1. Sequela of necrotizing pancreatitis. Hypodensity involvingthe lesser sac has increased and appears more organized than on the prior examination, raising suspicion for fat necrosis or developing pseudocyst. Continued attention on follow-up is recommended. 2. Interval increase in size of intra pancreatic and peripancreatic fluid collections suggesting walled-off necrosis. New fluid collection tracking along the inferior vena cava which may communicate inferiorly with additional peripancreatic fluid collections. 3. Interval increase in hepatomegaly. Hepatic steatosis again noted. CT Abdomen and Pelvis with IV Contrast [Jun 15 2023 3:25AM] Assessment and Plan: Assessment: Ms. Rutledge is a 47 year old female with a PMH of chronic pancreatitis, polysubstance abuse, drug-seeking behavior, seizure disorder, factor V ledien, HFpEF, HTN, and recurrent DVTs who presented to the ED for abdominal pain. On arrival to the ED, she is mildly hypertensive, but otherwise vital signs are within normal limits. Blood work obtained was grossly unremarkable. A CT of the abdomen demonstrated sequela of necrotizing pancreatitis and interval increase in size of intra pancreatic and peripancreatic fluid collections suggesting walled-off necrosis and new fluid collection tracking along the inferior vena cava which may communicate inferiorly with additional peripancreatic fluid collections. She was given 4 doses of 0.5mg IV Dilaudid, 4mg IV Zofran, and a 500mL LR bolus. She will be admitted to the medicine service as inpatient for further treatment and monitoring. #Acute on chronic pancreatitis #Polysubstance abuse #Drug-seeking behaviors -Consult pain medicine, input appreciated -Consult GI given new fluid collection tracking -NPO -Please document Morrison Calixto pain scale with subjective pain scale, treat per subjective -Use caution with opiates given abuse history, drug-seeking behaviors -LR @ 150 mL/hr -UDS pending #Factor V Leiden #Recurrent DVT -Continue home Xarelto -Low concern for acute issues #Seizure disorder -Records show concern for i/s/o benzo abuse/withdrawal -Seizure precautions -Continue home antiepileptics -Fall precautions #HFpEF #HTN -Stable -Daily weights -Continue home medications #Bacterial vaginosis #Candidiasis #Recent UTI -Continue Flagyl after verification Plan of Care Reviewed With: Plan of Care Reviewed With: patient; Nurse, Charge nurse Electronic Signatures: Nancy Benedict (EMERGENCY PLANNING AND RESPONSE MANAGER-[facility]) (Signed 15-Jun-2023 05:52) Authored: History of Present Illness, Comorbidities, Family History, Social History, Allergies, Medications Prior to Admission, Review of Systems, Objective, Assessment and Plan, Note Completion Last Updated: 15-Jun-2023 05:52 by Nancy Benedict (EMERGENCY PLANNING AND RESPONSE MANAGER-[facility]) References: 1. 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 She reports the pain as mainly in the epigastric region, with radiation to her right back and right shoulder. She endorses the pain as similar to prior pancreatitis flares, but this is worse in severity. There is associated nausea, subjective fever, and a week of watery nonbloody stools, which she reports she often has with pancreatitis flares. She denies chest pain, cough, dyspnea. Of note, she was recently treated for UTI followed by [facility] and is currently taking flagyl. She reports the vaginal discharge has improved. Notably, she was discharged from our service on 05/16/2023, as well as 04/28/2023 for acute on chronic pancreatitis. Also of note, she was evaluated for similar complaints at [facility] on 05/07/2023, where she reported an allergy to Morphine, as well as a visit to [facility] on 04/29/2023. She reports being recently admitted at [facility] (05/07-05/09) for drug induced psychosis (PCP) and previously for methamphetamine, but denies any drug use and reports not understanding why these results were positive. Most recently, she visited [facility] ([place]) on 05/19, 05/23, and 06/03, with her being informed the ED was not appropriate for pain management according to the ED note available in [facility]. She was also evaluated at pain management on 05/25, with no opiates ordered. 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 During the admission process for her most recent admission to our service, she was deceptive and provided incorrect medications not verified in OARRS to the med rec team. She endorses vaping, denies EtOH, endorses medical marijuana (Not confirmed by OARRS) OAARS was reviewed. Overdose score 610 (500 narcotic, 681 sedative). There are 71 entries for prescriptions from 21 providers, filled at 7 different pharmacies. There are no current active opiate or benzodiazepine prescriptions listed in OARRS. On exam in [id number], patient endorses only abdominal pain and bilateral hand swelling. She is resting in bed comfortably. After discussing the plan of care with her, she inquired what about pain medication in the mean time? (Last dose of Dilaudid was given in the ED at 0350. She reports receiving lidocaine, ketamine, and propofol infusions at pain management. Consistent with last admission, patient reported medications that cannot be verified in OARRS. Comorbidities: Comorbidites: Comorbid Conditions congestive heart failure, hypertension Type of Congestive Heart Failure diastolic CHF Additional Specificity N/A Acuity of CHF chronic Family History: Family History: reviewed and not pertinent to presenting problem Social History: Social History: Smoking Status light user (uses <10 cig/day, OR <0.5 ppd, OR 1 can/pouch loose leaf tobacco per week, OR <0.5 vape pods per day) (1) Alcohol Use history of abuse Drug Use history of abuse Drug 2 Use history of abuse Social History EtOH abuse history, opiate abuse history, benzodiazepine abuse history (unknown if active) Allergies: penicillin : Rash Neurontin : Swelling/Edema sulfa drugs: Rash Medications Prior to Admission: cholecalciferol 1250 mcg (50,000 intl units) oral capsule: 1 cap(s) orally once a week on Tuesday cloNIDine 0.2 mg oral tablet: 1 tab(s) orally once a day methenamine hippurate 1 g oral tablet: 1 tab(s) orally once a day metoprolol succinate 25 mg oral tablet, extended release: 1 tab(s) orally once a day potassium chloride 20 mEq oral tablet, extended release: 1 tab(s) orally 3 times a day ascorbic acid 1000 mg oral tablet: 1 tab(s) orally once a day fenofibrate 145 mg oral tablet: 1 tab(s) orally once a day lacosamide 100 mg oral tablet: take 1 tablet by mouth once in the morning and 2 tablets in the evening omeprazole 40 mg oral delayed release capsule: 1 cap(s) orally 2 times a day Melatonin 10 mg oral tablet: 1 tab(s) orally once a day (at bedtime), As Needed - for sleep / insomnia diphenhydrAMINE 25 mg oral tablet: 3 tab(s) orally once a day (at bedtime), As Needed - for allergy symptoms lactulose 10 g/15 mL oral syrup: 15 milliliter(s) orally 2 times a day, As Needed - for constipation nicotine 7 mg/24 hr transdermal film, extended release: 1 patch transdermal once a day, As Needed for Tobacco Cravings promethazine 25 mg oral tablet: 1 tab(s) orally 2 times a day, As Needed - for nausea and vomiting furosemide 40 mg oral tablet: 1 tab(s) orally once a day hydroCHLOROthiazide 25 mg oral tablet: 1 tab(s) orally once a day ARIPiprazole 10 mg oral tablet: 1 tab(s) orally once a day for Mood / Psychosis benztropine 0.5 mg oral tablet: 1 tab(s) orally once a day (at bedtime), As Needed for EPS rOPINIRole 0.5 mg oral tablet: 1 tab(s) orally 2 times a day menthol-benzocaine 3.6 mg-15 mg mucous membrane lozenge: mucous membrane pancrelipase 12,000 units-38,000 units-60,000 units oral delayed release capsule: 3 cap(s) orally 3 times a day (with meals) benzonatate 100 mg oral capsule: 1 cap(s) orally 3 times a day acetaminophen 500 mg oral tablet: 2 tab(s) orally every 8 hours, As Needed for pain Macrobid 100 mg oral capsule: 1 cap(s) orally 2 times a day, As Needed Xarelto 10 mg oral tablet: 1 tab(s) orally once a day Linzess 290 mcg oral capsule: 1 cap(s) orally once a day Effexor: 225 milligram(s) orally once a day Valtrex 500 mg oral tablet: 1 tab(s) orally once a day Vitamin D3 1250 mcg (50,000 intl units) oral capsule: 1 cap(s) orally once a week magnesium glycinate: null Depakote 250 mg oral delayed release tablet: 1 tab(s) orally 2 times a day Remeron: 7.5 milligram(s) orally once (at bedtime) Cogentin: orally 2 times a day. Review of Systems: Constitutional: POSITIVE: Fever; NEGATIVE: Chills Respiratory: NEGATIVE: Shortness of Breath Cardiac: NEGATIVE: Chest Pain Gastrointestinal: POSITIVE: Nausea, Abdominal Pain ; NEGATIVE: Vomiting, Diarrhea All Other Systems: All other systems reviewed and are negative Objective: Objective Information: T P R BP MAP SpO2 Value 36.1 92 18 130/86 96% Date/Time 06/14 14:34 06/15 0:15 06/15 0:15 06/15 0:15 06/15 0:15 Range (36.1C - 36.1C ) (85 - 92 ) (16 - 18 ) (130 - 149 )/ (86 - 96 ) (96% - 97% ) Physical Exam by System: Constitutional: Well developed, awake/alert/oriented x3, no distress, alert and cooperative Head/Neck: Neck supple, no apparent injury, thyroid without mass or tenderness, No JVD, trachea midline, no bruits Respiratory/Thorax: Patent airways, CTAB, normal breath sounds with good chest expansion, thorax symmetric Cardiovascular: Regular, rate and rhythm, no murmurs, 2+ equal pulses of the extremities, normal S 1and S 2 Gastrointestinal: Nondistended, soft, TTP RUQ, no rebound tenderness or guarding, no masses palpable, no organomegaly, +BS, no bruits Musculoskeletal: ROM intact, no joint swelling, normal strength Extremities: normal extremities, no cyanosis, contusions or wounds, no clubbing, non-pitting edema to bilateral hands Neurological: alert and oriented x3, intact senses, motor, response and reflexes, normal strength Psychological: Appropriate mood and behavior Skin: Warm and dry, no lesions, no rashes Medications: Medications: Continuous Medications No continuous medications are active Scheduled Medications 1. ARIPiprazole: 10 mg Oral Daily 2. cloNIDine (CATAPRES): 0.2 mg Oral Daily 3. Divalproex Sodium Del Rel (Depakote): 250 mg Oral 2 Times a Day 4. Fenofibrate: 160 mg Oral Daily 5. Furosemide: 40 mg Oral Daily 6. hydroCHLOROthiazide: 25 mg Oral Daily 7. Lacosamide: 200 mg Oral Every Night 8. Lacosamide: 100 mg Oral Every Morning 9. Linaclotide: 290 microgram(s) Oral Daily 10. Metoprolol Succinate Extended Release: 25 mg Oral Daily 11. Mirtazapine: 7.5 mg Oral At Bedtime 12. Nicotine 7 mg/ 24 hour TransDermal: 1 patch TransDermal Every 24 Hours 13. Pancrelipase (Creon 12,000): 3 capsule(s) Oral 3 Times a Day With Meals 14. Pantoprazole: 40 mg Oral 2 Times a Day 15. Potassium Chloride Extended Release: 20 mEq Oral 2 Times a Day 16. Rivaroxaban: 10 mg Oral Daily 17. rOPINIRole (REQUIP): 0.5 mg Oral 2 Times a Day 18. valACYclovir (VALTREX): 500 mg Oral Every 24 Hours 19. Venlafaxine Extended Release: 225 mg Oral Daily PRN Medications 1. Acetaminophen: 975 mg Oral Every 8 Hours 2. diphenhydrAMINE: 25 mg Oral Every 4 Hours 3. Promethazine: 25 mg Oral Every 6 Hours 4. Sodium Chloride 0.9% Injectable Flush: 10 mL IntraVenous Flush Every 8 Hours and as Needed Recent Lab Results: Results: CBC: 06/14/2023 20:16 \ Hgb / \ 11.9 L / WBC Plt 8.8 408 / Hct \ / 36.0 \ RBC: 4.06 MCV: 89 Neutrophil %: 65.2 CMP: 06/14/2023 20:16 NA+ Cl- BUN / 138 102 20 / Glucose 116 H K+ HCO3- Creat \ 3.9 23 0.61 \ \ T Bili / \ 0.4 / AST x ---- x ALT 20 x ---- x 34 / Alk P \ / 67 \ Calcium : 9.0 Anion Gap : 17 Albumin : 4.0 T Protein : 6.5 Radiology Results: Results: I have reviewed this radiology result: Impression: 1. Sequela of necrotizing pancreatitis. Hypodensity involvingthe lesser sac has increased and appears more organized than on the prior examination, raising suspicion for fat necrosis or developing pseudocyst. Continued attention on follow-up is recommended. 2. Interval increase in size of intra pancreatic and peripancreatic fluid collections suggesting walled-off necrosis. New fluid collection tracking along the inferior vena cava which may communicate inferiorly with additional peripancreatic fluid collections. 3. Interval increase in hepatomegaly. Hepatic steatosis again noted. CT Abdomen and Pelvis with IV Contrast [Jun 15 2023 3:25AM] Assessment and Plan: Assessment: Ms. Rutledge is a 47 year old female with a PMH of chronic pancreatitis, polysubstance abuse, drug-seeking behavior, seizure disorder, factor V ledien, HFpEF, HTN, and recurrent DVTs who presented to the ED for abdominal pain. On arrival to the ED, she is mildly hypertensive, but otherwise vital signs are within normal limits. Blood work obtained was grossly unremarkable. A CT of the abdomen demonstrated sequela of necrotizing pancreatitis and interval increase in size of intra pancreatic and peripancreatic fluid collections suggesting walled-off necrosis and new fluid collection tracking along the inferior vena cava which may communicate inferiorly with additional peripancreatic fluid collections. She was given 4 doses of 0.5mg IV Dilaudid, 4mg IV Zofran, and a 500mL LR bolus. She will be admitted to the medicine service as inpatient for further treatment and monitoring. #Acute on chronic pancreatitis #Polysubstance abuse #Drug-seeking behaviors -Consult pain medicine, input appreciated -Consult GI given new fluid collection tracking -NPO -Please document Morrison Calixto pain scale with subjective pain scale, treat per subjective -Use caution with opiates given abuse history, drug-seeking behaviors -LR @ 150 mL/hr -UDS pending #Factor V Leiden #Recurrent DVT -Continue home Xarelto -Low concern for acute issues #Seizure disorder -Records show concern for i/s/o benzo abuse/withdrawal -Seizure precautions -Continue home antiepileptics -Fall precautions #HFpEF #HTN -Stable -Daily weights -Continue home medications #Bacterial vaginosis #Candidiasis #Recent UTI -Continue Flagyl after verification Plan of Care Reviewed With: Plan of Care Reviewed With: patient; Nurse, Charge nurse Electronic Signatures: Nancy Benedict (EMERGENCY PLANNING AND RESPONSE MANAGER-[facility]) (Signed 15-Jun-2023 05:52) Authored: History of Present Illness, Comorbidities, Family History, Social History, Allergies, Medications Prior to Admission, Review of Systems, Objective, Assessment and Plan, Note Completion Last Updated: 15-Jun-2023 05:52 by Nancy Benedict (EMERGENCY PLANNING AND RESPONSE MANAGER-[employer]) References: 1. 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 She reports the pain as mainly in the epigastric region, with radiation to her right back and right shoulder. She endorses the pain as similar to prior pancreatitis flares, but this is worse in severity. There is associated nausea, subjective fever, and a week of watery nonbloody stools, which she reports she often has with pancreatitis flares. She denies chest pain, cough, dyspnea. Of note, she was recently treated for UTI followed by and is currently taking flagyl. She reports the vaginal discharge has improved. Notably, she was discharged from our service on 05/16/2023, as well as 04/28/2023 for acute on chronic pancreatitis. Also of note, she was evaluated for similar complaints at [facility] on 05/07/2023, where she reported an allergy to Morphine, as well as a visit to [facility] on 04/29/2023. She reports being recently admitted at [facility] (05/07-05/09) for drug induced psychosis (PCP) and previously for methamphetamine, but denies any drug use and reports not understanding why these results were positive. Most recently, she visited [facility] ([place]) on 05/19, 05/23, and 06/03, with her being informed the ED was not appropriate for pain management according to the ED note available in [facility]. She was also evaluated at pain management on 05/25, with no opiates ordered. 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 During the admission process for her most recent admission to our service, she was deceptive and provided incorrect medications not verified in OARRS to the med rec team. She endorses vaping, denies EtOH, endorses medical marijuana (Not confirmed by OARRS) OAARS was reviewed. Overdose score 610 (500 narcotic, 681 sedative). There are 71 entries for prescriptions from 21 providers, filled at 7 different pharmacies. There are no current active opiate or benzodiazepine prescriptions listed in OARRS. On exam in [id number], patient endorses only abdominal pain and bilateral hand swelling. She is resting in bed comfortably. After discussing the plan of care with her, she inquired what about pain medication in the mean time (Last dose of Dilaudid was given in the ED at 0350. She reports receiving lidocaine, ketamine, and propofol infusions at pain management. Consistent with last admission, patient reported medications that cannot be verified in OARRS. Comorbidities: Comorbidites: Comorbid Conditionscongestive heart failure, hypertension Type of Congestive Heart Failurediastolic CHF Additional SpecificityN/A Acuity of CHFchronic Family History: Family History: reviewed and not pertinent to presenting problem Social History: Social History: Smoking Statuslight user (uses <10 cig/day, OR <0.5 ppd, OR 1 can/pouch loose leaf tobacco per week, OR <0.5 vape pods per day) (1) Alcohol Usehistory of abuse Drug Usehistory of abuse Drug 2 Usehistory of abuse Social History EtOH abuse history, opiate abuse history, benzodiazepine abuse history (unknown if active) Allergies: penicillin: Rash Neurontin: Swelling/Edema sulfa drugs: Rash Medications Prior to Admission: cholecalciferol 1250 mcg (50,000 intl units) oral capsule: 1 cap(s) orally once a week on Tuesday cloNIDine 0.2 mg oral tablet: 1 tab(s) orally once a day methenamine hippurate 1 g oral tablet: 1 tab(s) orally once a day metoprolol succinate 25 mg oral tablet, extended release: 1 tab(s) orally once a day potassium chloride 20 mEq oral tablet, extended release: 1 tab(s) orally 3 times a day ascorbic acid 1000 mg oral tablet: 1 tab(s) orally once a day fenofibrate 145 mg oral tablet: 1 tab(s) orally once a day lacosamide 100 mg oral tablet: take 1 tablet by mouth once in the morning and 2 tablets in the evening omeprazole 40 mg oral delayed release capsule: 1 cap(s) orally 2 times a day Melatonin 10 mg oral tablet: 1 tab(s) orally once a day (at bedtime), As Needed - for sleep / insomnia diphenhydrAMINE 25 mg oral tablet: 3 tab(s) orally once a day (at bedtime), As Needed - for allergy symptoms lactulose 10 g/15 mL oral syrup: 15 milliliter(s) orally 2 times a day, As Needed - for constipation nicotine 7 mg/24 hr transdermal film, extended release: 1 patch transdermal once a day, As Needed for Tobacco Cravings promethazine 25 mg oral tab (more content not included)... [facility] 06-03-2023 Hospital Discharge instructions Patient Education 06/03/2023 16:41:44 Pancreatitis Pancreatitis The pancreas is an organ in the abdomen that secretes digestive juices into the stomach. Pancreatitis is an inflammation of the pancreas. In many cases, it is caused when the duct that connects the pancreas and gallbladder is blocked by a gallstone. Heavy alcohol use is another major cause. Less common causes can include medicines, trauma, certain medical procedures, viruses, and toxins. Sometimes the cause of pancreatitis cannot be found. Genetic testing is sometimes done in those cases, especially if there is a family history of pancreas disease. Symptoms of pancreatitis include: Severe abdominal pain Nausea and vomiting Severe indigestion Racing heart Fever If the pancreatitis becomes chronic, diarrhea, chronic pain, weight loss, and poor nutrition can result. At first, pancreatitis may be treated in the hospital. It may be diagnosed by history, exam, blood tests, and sometimes imaging studies. There, fluids and medicines can be provided. The underlying cause of the problem must also be treated to prevent further problems. If gallstones are the cause, you and your healthcare provider can discuss options for treating them. This usually results in gallbladder surgery. Sometimes another test must be done to clear the drainage ducts of a blocked gallstones. If alcohol is the cause, talk with your healthcare provider about a program to help you stop drinking. Home care Don't drink alcohol. Rest in bed or sit up in a chair until you feel better. Take medicines as prescribed. If you were given an antibiotic for infection, take it until it is gone, even if you feel better. Let your healthcare provider know if you vomit up your medicine. Tips for eating and drinking: If instructed, avoid eating or drinking until nausea and vomiting go away. Try sipping clear liquids to prevent dehydration. When you begin eating again, start with small amounts. Have small, more frequent meals rather than larger meals. Low fat meals are best. Follow-up care Follow up with your healthcare provider as advised. When to seek medical advice Call your healthcare provider right away for any of the following: Continued or worsening pain Repeated vomiting Dizziness, weakness Fever of 100.4 F (38 C) or higher, or as directed by your healthcare provider Severe muscle cramps Call 911 Call 911 if you have any of the following: Vomiting blood or large amounts of blood in stool Seizure Loss of consciousness [id number] [employer]. [address] [place] [address]. All rights reserved. This information is not intended as a substitute for professional medical care. Always follow your healthcare professional's instructions. Follow Up Care 06/03/2023 14:52:20 With:[facility] Address: When:2-4 days With:CJ RIVERA Address: [address] [address] [phone] When:2-4 days With:Go to emergency room if symptoms worsen Address:Unknown When:2-4 days [facility] 06-03-2023 Note Discharge Instructions Thank you for allowing [facility] to assist you with your healthcare needs. The following is important discharge information regarding your hospital visit. Diagnosis from Today's Visit Abdominal pain Necrotizing pancreatitis Pancreatitis What to Do Next Instructions from Your Care Team No qualifying data available. Post Acute Orders No qualifying data available. You Need to Schedule the Following Appointments Follow Up with [facility] When Within 2-4 days Where: Follow Up with CJ RIVERA When Within 2-4 days Where: [address] [place] [address]- [phone] Follow Up with Go to emergency room if symptoms worsen When Within 2-4 days Allergies penicillin (Rash) Neurontin (Vomiting) sulfa drug Medications Please ask your primary doctor or pharmacist before taking any other medication not listed, including over the counter drugs, herbal medications, vitamins and or supplements as they may interact with your home medications. What How Much When Why Instructions Last Dose Changed acetaminophen-oxyCODONE (acetaminophen-oxyCODONE 325 mg-5 mg oral tablet) 2 tab(s) by mouth Every 6 hours as needed for for pain Changed acetaminophen-oxyCODONE (Percocet 5 mg-325 mg oral tablet) 1 tab(s) by mouth Every 4 hours as needed for as needed for pain Pancreatitis Duration: 3 Days Printed Prescription Changed ondansetron (ondansetron 8 mg oral tablet, disintegrating) 1 tab(s) by mouth Three (3) times a day as needed for Nausea Changed ondansetron (Zofran 4 mg oral tablet) 1 tab(s) by mouth Every 8 hours Printed Prescription Unchanged APAP/ butalbital/ caffeine (APAP/ butalbital/ caffeine 325-50-40 mg oral tablet (Fioricet)) 1 tab(s) by mouth Every 4 hours as needed for as needed in absence of pcp Unchanged ARIPiprazole (ARIPiprazole 10 mg oral tablet) 1 tab(s) by mouth Once a day Unchanged ascorbic acid (Vitamin C 1000 mg oral tablet) 1 tab(s) by mouth Once a day Unchanged benztropine (benztropine 0.5 mg oral tablet) 1 tab(s) by mouth Two (2) times a day Take 1 tab TWICE A DAY As Needed for eps Unchanged cholecalciferol (cholecalciferol 1250 mcg (50,000 intl units) oral capsule) 1 cap by mouth Every Tuesday Duration: 90 Days Unchanged clonazePAM (clonazePAM 0.5 mg oral tablet) 1 tab(s) by mouth Once a day as needed for Anxiety Unchanged cloNIDine (cloNIDine 0.2 mg oral tablet) 1 tab(s) by mouth Once a day Duration: 90 Days Unchanged dicyclomine (dicyclomine 10 mg oral capsule) 1 cap by mouth Four (4) times a day Duration: 10 Days Unchanged divalproex sodium (divalproex sodium 250 mg oral delayed release tablet) Take 1 tab TWICE A DAY for Mood Unchanged fenofibrate (fenofibrate 145 mg oral tablet) 1 tab(s) by mouth Once a day Unchanged fluconazole (fluconazole 150 mg oral tablet) See instructions 1 tab(s) Oral then repeat in 1 week. Unchanged furosemide (furosemide 40 mg oral tablet) 1 tab(s) by mouth Once a day Duration: 90 Days Unchanged hydroCHLOROthiazide (hydroCHLOROthiazide 25 mg oral tablet) 1 tab(s) by mouth Once a day Unchanged lacosamide (lacosamide 100 mg oral tablet) 1 tab(s) by mouth Once a day (in the morning) Unchanged lacosamide (lacosamide 100 mg oral tablet) 2 tab(s) by mouth Once a day (in the evening) Unchanged lactulose (lactulose 10 g/ 15 mL oral syrup) 15 Milliliter by mouth Two (2) times a day as needed for as needed for constipation Unchanged linaclotide (Linzess 290 mcg oral capsule) 1 cap by mouth Once a day Duration: 90 Days Unchanged magnesium salicylate (magnesium salicylate 600 mg oral tablet) 1 tab(s) by mouth Every 4 hours Unchanged methenamine (methenamine hippurate 1 g oral tablet) 1 tab(s) by mouth Once a day Duration: 90 Days Unchanged metoprolol (metoprolol succinate 25 mg oral TABLET extended release) 1 tab(s) by mouth Once a day Duration: 30 Days Unchanged mirtazapine (mirtazapine 7.5 mg oral tablet) 1 tab(s) by mouth Daily at bedtime Unchanged naloxone (naloxone 4 mg/ 0.1 mL nasal spray) 1 spray(s) Intranasal As Directed as needed for see pharmacy notes may repeat every 2 to 3 minutes until patient responds Unchanged nitrofurantoin (Macrobid 100 mg oral capsule) 1 cap by mouth Once a day as needed for Symptoms of urinary discomfort Take with food Unchanged nortriptyline (nortriptyline 25 mg oral capsule) 1 cap by mouth Three (3) times a day Unchanged omeprazole (omeprazole 40 mg oral delayed release capsule) 1 cap by mouth Two (2) times a day Duration: 90 Days Unchanged pancrelipase (Creon 12,000 units oral delayed release capsule) 1 cap by mouth Three (3) times a day Unchanged pancrelipase (Creon 36,000 units oral delayed release capsule) 1 cap by mouth Four (4) times a day Unchanged potassium chloride (potassium chloride 20 mEq oral tablet, extended release) 1 tab(s) by mouth Three (3) times a day Duration: 90 Days Unchanged promethazine (promethazine 25 mg oral tablet) 1 tab(s) by mouth Two (2) times a day Duration: 14 Days Unchanged rivaroxaban (Xarelto 10 mg oral tablet) 1 tab(s) by mouth Once a day Duration: 90 Days Unchanged rOPINIRole (rOPINIRole 0.5 mg oral tablet) 1 tab(s) by mouth Two (2) times a day Duration: 90 Days Unchanged valACYclovir (valACYclovir 500 mg oral tablet) 1 tab(s) by mouth Once a day Duration: 90 Days Unchanged venlafaxine (venlafaxine 150 mg oral capsule, extended release) 1 cap by mouth Once a day Duration: 90 Days for a total of 225 mg/ day. Unchanged venlafaxine (venlafaxine 75 mg oral capsule, extended release) 1 cap by mouth Once a day Duration: 90 Days for a total of 225 mg/ day. Please take this list to your next doctor s visit. Bring all medications you take, including over the counter medications, herbals and other supplements with you to your doctor s visit. Patients and families are reminded to discard old lists and to update any records with all medication providers or retail pharmacies. Medication Leaflets acetaminophen and oxycodone (a SEET a MIN oh fen and OX i KOE done) Endocet 10/325, Endocet 2.5/325, Endocet 5/325, Endocet 7.5/325, Nalocet, Percocet, Prolate What is the most important information I should know about acetaminophen and oxycodone? MISUSE OF OPIOID MEDICINE CAN CAUSE ADDICTION, OVERDOSE, OR . Keep the medication in a place where others cannot get to it. Taking opioid medicine during may cause life-threatening withdrawal symptoms in the . Fatal side effects can occur if you use opioid medicine with alcohol, or with other drugs that cause drowsiness or slow your breathing. Stop taking this medicine and call your doctor right away if you have skin redness or a rash that spreads and causes blistering and peeling. What is acetaminophen and oxycodone? Acetaminophen and oxycodone is a combination medicine used to relieve moderate to severe pain. Acetaminophen and oxycodone contains an opioide medicine and may be habit-forming. Acetaminophen and oxycodone may also be used for purposes not listed in this medication guide. What should I discuss with my healthcare provider before taking acetaminophen and oxycodone? You should not use this medicine if you are allergic to acetaminophen or oxycodone, or if you have: severe asthma or breathing problems; or a blockage in your stomach or intestines. Tell your doctor if you have ever had: breathing problems, sleep apnea; liver disease; a drug or alcohol addiction; kidney disease; a head injury or seizures; urination problems; or problems with your thyroid, pancreas, or gallbladder. If you use opioid medicine while you are , your baby could become dependent on the drug. This can cause life-threatening withdrawal symptoms in the baby after it is born. Babies born dependent on opioids may need medical treatment for several weeks. Ask a doctor before using opioid medicine if you are . Tell your doctor if you notice severe drowsiness or slow breathing in the nursing baby. How should I take acetaminophen and oxycodone? Follow all directions on your prescription label. Never take this medicine in larger amounts, or for longer than prescribed. An overdose can damage your liver or cause . Tell your doctor if you feel an increased urge to use more of this medicine. Never share opioid medicine with another person, especially someone with a history of drug abuse or addiction. MISUSE CAN CAUSE ADDICTION, OVERDOSE, OR . Keep the medicine in a place where others cannot get to it. Selling or giving away opioid medicine is against the law. Measure liquid medicine carefully. Use the dosing syringe provided, or use a medicine dose-measuring device (not a kitchen spoon). If you need surgery or medical tests, tell the doctor ahead of time that you are using this medicine. You should not stop using this medicine suddenly. Follow your doctor's instructions about tapering your dose. Store at room temperature away from moisture and heat. Keep track of your medicine. You should be aware if anyone is using it improperly or without a prescription. Do not keep leftover opioid medication. Just one dose can cause in someone using this medicine accidentally or improperly. Ask your pharmacist where to locate a drug take-back disposal program. If there is no take-back program, flush the unused medicine down the toilet. What happens if I miss a dose? Since this medicine is used for pain, you are not likely to miss a dose. Skip any missed dose if it is almost time for your next dose. Do not use two doses at one time. What happens if I overdose? Seek emergency medical attention or call the Poison Help line at . An overdose of this medicine can be fatal, especially in a child or other person using the medicine without a prescription. Overdose symptoms may include nausea, vomiting, sweating, severe drowsiness, pinpoint pupils, slow breathing, or no breathing. Your doctor may recommend you get naloxone (a medicine to reverse an opioid overdose) and keep it with you at all times. A person caring for you can give the naloxone if you stop breathing or don't wake up. Your caregiver must still get emergency medical help and may need to perform CPR (cardiopulmonary resuscitation) on you while waiting for help to arrive. Anyone can buy naloxone from a pharmacy or local health department. Make sure any person caring for you knows where you keep naloxone and how to use it. What should I avoid while taking acetaminophen and oxycodone? Avoid driving or operating machinery until you know how this medicine will affect you. Dizziness or drowsiness can cause falls, accidents, or severe injuries. Do not drink alcohol. Dangerous side effects or could occur. Ask a doctor or pharmacist before using any other medicine that may contain acetaminophen (sometimes abbreviated as APAP). Taking certain medications together can lead to a fatal overdose. What are the possible side effects of acetaminophen and oxycodone? Get emergency medical help if you have signs of an allergic reaction: hives; difficulty breathing; swelling of your face, lips, tongue, or throat. Opioid medicine can slow or stop your breathing, and may occur. A person caring for you should give naloxone and/or seek emergency medical attention if you have slow breathing with long pauses, blue colored lips, or if you are hard to wake up. In rare cases, acetaminophen may cause a severe skin reaction that can be fatal. This could occur even if you have taken acetaminophen in the past and had no reaction. Stop taking this medicine and call your doctor right away if you have skin redness or a rash that spreads and causes blistering and peeling. Call your doctor at once if you have: noisy breathing, sighing, shallow breathing, breathing that stops; a light-headed feeling, like you might pass out; weakness, tiredness, fever, unusual bruising or bleeding; confusion, unusual thoughts or behavior; problems with urination; liver problems--nausea, upper stomach pain, tiredness, loss of appetite, dark urine, shannan-colored stools, jaundice (yellowing of the skin or eyes); low cortisol levels-- nausea, vomiting, loss of appetite, dizziness, worsening tiredness or weakness; or high levels of serotonin in the body--agitation, hallucinations, fever, sweating, shivering, fast heart rate, muscle stiffness, twitching, loss of coordination, nausea, vomiting, diarrhea. Serious breathing problems may be more likely in older adults and in those who are debilitated or have wasting syndrome or chronic breathing disorders. Common side effects include: dizziness, drowsiness, feeling tired; feelings of extreme happiness or sadness; nausea, vomiting, stomach pain; constipation; or headache. This is not a complete list of side effects and others may occur. Call your doctor for medical advice about side effects. You may report side effects to FDA at 9-644-DQX-7914. What other drugs will affect acetaminophen and oxycodone? You may have breathing problems or withdrawal symptoms if you start or stop taking certain other medicines. Tell your doctor if you also use an antibiotic, antifungal medication, heart or blood pressure medication, seizure medication, or medicine to treat HIV or hepatitis C. Opioid medication can interact with many other drugs and cause dangerous side effects or . Be sure your doctor knows if you also use: cold or allergy medicines, bronchodilator asthma/COPD medication, or a diuretic ('water pill'); medicines for motion sickness, irritable bowel syndrome, or overactive bladder; other opioids--opioid pain medicine or prescription cough medicine; a sedative like Valium--diazepam, alprazolam, lorazepam, Xanax, Klonopin, Versed, and others; drugs that make you sleepy or slow your breathing--a sleeping pill, muscle relaxer, medicine to treat mood disorders or mental illness; drugs that affect serotonin levels in your body--a stimulant, or medicine for depression, Parkinson's disease, migraine headaches, serious infections, or nausea and vomiting. This list is not complete. Other drugs may affect acetaminophen and oxycodone, including prescription and [id number] medicines, vitamins, and herbal products. Not all possible interactions are listed here. Where can I get more information? Your doctor or pharmacist can provide more information about acetaminophen and oxycodone. Remember, keep this and all other medicines out of the reach of children, never share your medicines with others, and use this medication only for the indication prescribed. Every effort has been made to ensure that the information provided by [employer] is accurate, up-to-date, and complete, but no guarantee is made to that effect. Drug information contained herein may be time sensitive. [employer] information has been compiled for use by healthcare practitioners and consumers in the [place] and therefore [employer] does not warrant that uses outside of the [place] are appropriate, unless specifically indicated otherwise. [employer] drug information does not endorse drugs, diagnose patients or recommend therapy. [employer] drug information is an informational resource designed to assist licensed healthcare practitioners in caring for their patients and/or to serve consumers viewing this service as a supplement to, and not a substitute for, the expertise, skill, knowledge and judgment of healthcare practitioners. The absence of a warning for a given drug or drug combination in no way should be construed to indicate that the drug or drug combination is safe, effective or appropriate for any given patient. [employer] does not assume any responsibility for any aspect of healthcare administered with the aid of information [employer] provides. The information contained herein is not intended to cover all possible uses, directions, precautions, warnings, drug interactions, allergic reactions, or adverse effects. If you have questions about the drugs you are taking, check with your doctor, nurse or pharmacist. Copyright 4512-2783 [employer] Version: 22.01. Revision Date: 04/21/2023. ondansetron (oral) (on BENJI se sean) What is the most important information I should know about ondansetron? You should not use ondansetron if you are also using apomorphine (Apokyn). What is ondansetron? Ondansetron blocks the actions of chemicals in the body that can trigger nausea and vomiting. Ondansetron is used to prevent nausea and vomiting that may be caused by surgery, cancer chemotherapy, or radiation treatment. Ondansetron may be used for purposes not listed in this medication guide. What should I discuss with my health care provider before taking ondansetron? You should not use ondansetron if: you are also using apomorphine (Apokyn); or you are allergic to ondansetron or similar medicines (dolasetron, granisetron, palonosetron). To make sure ondansetron is safe for you, tell your doctor if you have: liver disease; an electrolyte imbalance (such as low levels of potassium or magnesium in your blood); congestive heart failure, slow heartbeats; a personal or family history of long QT syndrome; or a blockage in your digestive tract (stomach or intestines). Ondansetron is not expected to harm an unborn baby. Tell your doctor if you are . It is not known whether ondansetron passes into breast milk or if it could harm a nursing baby. Tell your doctor if you are breast-feeding a baby. Ondansetron is not approved for use by anyone younger than 4 years old. Ondansetron orally disintegrating tablets may contain phenylalanine. Tell your doctor if you have phenylketonuria (PKU). How should I take ondansetron? Follow all directions on your prescription label. Do not take this medicine in larger or smaller amounts or for longer than recommended. Ondansetron can be taken with or without food. The first dose of ondansetron is usually taken before the start of your surgery, chemotherapy, or radiation treatment. Follow your doctor's dosing instructions very carefully. Take the ondansetron regular tablet with a full glass of water. To take the orally disintegrating tablet (Zofran ODT): Keep the tablet in its blister pack until you are ready to take it. Open the package and peel back the foil. Do not push a tablet through the foil or you may damage the tablet. Use dry hands to remove the tablet and place it in your mouth. Do not swallow the tablet whole. Allow it to dissolve in your mouth without chewing. Swallow several times as the tablet dissolves. To use ondansetron oral soluble film (strip) (Zuplenz): Keep the strip in the foil pouch until you are ready to use the medicine. Using dry hands, remove the strip and place it on your tongue. It will begin to dissolve right away. Do not swallow the strip whole. Allow it to dissolve in your mouth without chewing. Swallow several times after the strip dissolves. If desired, you may drink liquid to help swallow the dissolved strip. Wash your hands after using Zuplenz. Measure liquid medicine with the dosing syringe provided, or with a special dose-measuring spoon or medicine cup. If you do not have a dose-measuring device, ask your pharmacist for one. Store at room temperature away from moisture, heat, and light. Store liquid medicine in an upright position. What happens if I miss a dose? Take the missed dose as soon as you remember. Skip the missed dose if it is almost time for your next scheduled dose. Do not take extra medicine to make up the missed dose. What happens if I overdose? Seek emergency medical attention or call the Poison Help line at . Overdose symptoms may include sudden loss of vision, severe constipation, feeling light-headed, or fainting. What should I avoid while taking ondansetron? Ondansetron may impair your thinking or reactions. Be careful if you drive or do anything that requires you to be alert. What are the possible side effects of ondansetron? Get emergency medical help if you have signs of an allergic reaction: rash, hives; fever, chills, difficult breathing; swelling of your face, lips, tongue, or throat. Call your doctor at once if you have: severe constipation, stomach pain, or bloating; headache with chest pain and severe dizziness, fainting, fast or pounding heartbeats; fast or pounding heartbeats; jaundice (yellowing of the skin or eyes); blurred vision or temporary vision loss (lasting from only a few minutes to several hours); high levels of serotonin in the body--agitation, hallucinations, fever, fast heart rate, overactive reflexes, nausea, vomiting, diarrhea, loss of coordination, fainting. Common side effects may include: diarrhea or constipation; headache; drowsiness; or tired feeling. This is not a complete list of side effects and others may occur. Call your doctor for medical advice about side effects. You may report side effects to FDA at 8-473-RJF-2702. What other drugs will affect ondansetron? Ondansetron can cause a serious heart problem, especially if you use certain medicines at the same time, including antibiotics, antidepressants, heart rhythm medicine, antipsychotic medicines, and medicines to treat cancer, malaria, HIV or AIDS. Tell your doctor about all medicines you use, and those you start or stop using during your treatment with ondansetron. Taking ondansetron while you are using certain other medicines can cause high levels of serotonin to build up in your body, a condition called 'serotonin syndrome,' which can be fatal. Tell your doctor if you also use: medicine to treat depression; medicine to treat a psychiatric disorder; a narcotic (opioid) medication; or medicine to prevent nausea and vomiting. This list is not complete and many other drugs can interact with ondansetron. This includes prescription and llpc-tdz-cjaqspf medicines, vitamins, and herbal products. Give a list of all your medicines to any healthcare provider who treats you. Where can I get more information? Your pharmacist can provide more information about ondansetron. Remember, keep this and all other medicines out of the reach of children, never share your medicines with others, and use this medication only for the indication prescribed. Every effort has been made to ensure that the information provided by [employer]. ('[employer]') is accurate, up-to-date, and complete, but no guarantee is made to that effect. Drug information contained herein may be time sensitive. [employer] information has been compiled for use by healthcare practitioners and consumers in the [place] and therefore [employer] does not warrant that uses outside of the [place] are appropriate, unless specifically indicated otherwise. [employer] drug information does not endorse drugs, diagnose patients or recommend therapy. [employer] drug information is an informational resource designed to assist licensed healthcare practitioners in caring for their patients and/or to serve consumers viewing this service as a supplement to, and not a substitute for, the expertise, skill, knowledge and judgment of healthcare practitioners. The absence of a warning for a given drug or drug combination in no way should be construed to indicate that the drug or drug combination is safe, effective or appropriate for any given patient. [employer] does not assume any responsibility for any aspect of healthcare administered with the aid of information [employer] provides. The information contained herein is not intended to cover all possible uses, directions, precautions, warnings, drug interactions, allergic reactions, or adverse effects. If you have questions about the drugs you are taking, check with your doctor, nurse or pharmacist. Copyright 2856-4718 [employer]. Version: 16.. Revision Date: 04/21/2023. Education Materials Pancreatitis The pancreas is an organ in the abdomen that secretes digestive juices into the stomach. Pancreatitis is an inflammation of the pancreas. In many cases, it is caused when the duct that connects the pancreas and gallbladder is blocked by a gallstone. Heavy alcohol use is another major cause. Less common causes can include medicines, trauma, certain medical procedures, viruses, and toxins. Sometimes the cause of pancreatitis cannot be found. Genetic testing is sometimes done in those cases, especially if there is a family history of pancreas disease. Symptoms of pancreatitis include: Severe abdominal pain Nausea and vomiting Severe indigestion Racing heart Fever If the pancreatitis becomes chronic, diarrhea, chronic pain, weight loss, and poor nutrition can result. At first, pancreatitis may be treated in the hospital. It may be diagnosed by history, exam, blood tests, and sometimes imaging studies. There, fluids and medicines can be provided. The underlying cause of the problem must also be treated to prevent further problems. If gallstones are the cause, you and your healthcare provider can discuss options for treating them. This usually results in gallbladder surgery. Sometimes another test must be done to clear the drainage ducts of a blocked gallstones. If alcohol is the cause, talk with your healthcare provider about a program to help you stop drinking. Home care Don't drink alcohol. Rest in bed or sit up in a chair until you feel better. Take medicines as prescribed. If you were given an antibiotic for infection, take it until it is gone, even if you feel better. Let your healthcare provider know if you vomit up your medicine. Tips for eating and drinking: If instructed, avoid eating or drinking until nausea and vomiting go away. Try sipping clear liquids to prevent dehydration. When you begin eating again, start with small amounts. Have small, more frequent meals rather than larger meals. Low fat meals are best. Follow-up care Follow up with your healthcare provider as advised. When to seek medical advice Call your healthcare provider right away for any of the following: Continued or worsening pain Repeated vomiting Dizziness, weakness Fever of 100.4 F (38 C) or higher, or as directed by your healthcare provider Severe muscle cramps Call 911 Call 911 if you have any of the following: Vomiting blood or large amounts of blood in stool Seizure Loss of consciousness [phone] [employer]. [address] [place] [address], [place] [address]. All rights reserved. This information is not intended as a substitute for professional medical care. Always follow your healthcare professional's instructions. Additional Information VACCINATE! IT SAVES LIVES! Members of the community who have not yet received the COVID-19 vaccine and would like to receive it can visit one of [facility] vaccine clinics. There are many vaccine clinic locations within the [facility]. For locations and available times, please visit [email or web address].[email or web address] . It is important to note that some COVID mobile vaccine clinics are held outdoors and may be canceled in rainy or stormy conditions. To learn more about pediatric vaccinations (ages 5-11), we invite you to visit the [facility] webpage. [email or web address].[email or web address]/pages /9835-Kqphs-Skhpayycavt-Frequently-A sked-Questions.html To learn more about the COVID-19 vaccine, we invite you to visit the CDC website for a list of frequently asked questions. https://www.cdc.gov/coronavirus/2019 -ncov/vaccines/faq.html [facility] Patient Portal Access Instructions: Stay connected with your healthcare team and access your personal medical information anytime with the [facility] Patient Portal. If you would like a full copy of your medical records please contact the [facility] Medical Records Department Tuesday through Tuesday between 8a.m. and 4:30p.m. Please follow the directions below to access the portal: 1.Access the email account you provided upon registration to the hospital.2.Look for an invitation email from [facility].3.Open the email and access the invitation link: Accept Invitation to [facility]4.Fill in the required azul to create your account. Sign into [email or web address] with your username and password that you created in the above steps to stay up to date. You can then view a summary of results, a summary of your visits, and the ability to download your summaries to your computer or send the information securely to a physician. Remember that your healthcare information is confidential, so carefully consider who you will allow to register on the [facility] Patient Portal for access to your information. You can also access the [facility] Patient Portal on the triptap leslie. Simply click on Health Records under Health Data and then click on the [employer] logo. HOW TO SAFELY DISPOSE OF PRESCRIPTION MEDICATIONS Please use one of the following methods to safely dispose of your unused medications. 1.Use a drug disposal kit: the drug disposal pouch allows you to safely discard your old and unused drugs. Ask your nurse to give you one when you are discharged.2.Visit a local take-back location: Many local pharmacies and police departments have programs that collect old and unwanted prescription drugs. Call your local pharmacy or go to http://[employer].CMGE/2H1Gl0i to find one close to you.3.Make use of household items: Use cat litter or old coffee grounds to dispose medications if other options are not available. Mix your drugs with these household products, seal them in an airtight container and throw it into the garbage. Call [facility]: [phone] to be sure your drugs can be disposed of in this way. Some medicines may require a different approach.4.Never flush your medications down the toilet. IF YOU HAVE BEEN PRESCRIBED AN OPIOIDS FOR PAIN If you have been prescribed an opioid (such as hydrocodone, oxycodone or morphine), it is critical to understand the possible side effects and risks of opioid pain medications. Even when taken as directed, opioids can have several side effects including: Tolerance, meaning you might need to take more of a medication for the same pain relief. Nausea, vomiting and/or constipation. Sleepiness, dizziness, dry mouth, confusion, depression or itching. Physical dependence, meaning you have withdrawal symptoms when a medication is stopped ? this can develop within a few days. KNOW YOUR RESPONSIBILITIES It is important to know exactly how much and how often to take the opioid pain medications you are prescribed. Never take opioids in higher amounts or more often than prescribed. Do not combine opioids with alcohol or other drugs that cause drowsiness, such as benzodiazepines, also known as benzos, including diazepam and alprazolam, muscle relaxants or sleep aids. Never sell or share prescription opioids. This is illegal. Store opioids in a secure place and out of reach of others (including children, family, friends and visitors). The last page(s) of this document has been signed and retained as a CHART COPY Signatures Patient Education Materials Pancreatitis Medication Leaflets acetaminophen and oxycodone, ondansetron (oral) My discharge plan and instructions have been reviewed and explained to me and IMATY AMANDA M understand my current condition and have read and understand these discharge instructions. I have received a written copy of the plan/instructions. If I have questions, I am aware that I should contact my doctor. 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: ___ Date/Time: Relationship to Patient: _ Witness Name/Signature: Date/Time: [facility] 05-25-2023 History of Present illness Narrative OPIOIDOpioid Risk Screening:Opioid Risk ToolLast opioid risk screening date/ordered today: 05/25/2023ersonal history of substance abuse: Alcohol = 3, Illegal Drugs = 4Psychological disease: Positive History of Attention Deficit Disorder/Obsessive Compulsive Disorder/Bipolar/Schizophrenia = 2, Positive History of Depression = 1Patient's total score is 10, within range of High Risk (>=8)medical marijuana , hx alcohol and opioid drug use.History of Present Complaint:The patient was referred to us by Referring Provider: 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, 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 The patient stated that she used to be a binge drinker till 2013 when she stopped and she continued to have pain from her chronic pancreatitis that it is episodic and happens once every 2 to 4 weeks and last for a day to day and a half. The pain is tolerable in between those attacks. Today was a good day for her but palpating her abdomen resulted in significant tenderness over the right upper quadrant area.Surgical history: Endoscopic surgeriesProcedures: NonePrior Pain Therapies: NoneI have personally reviewed the OARRS report for this patient. This report is scanned into the electronic medical record. I have considered the risks of abuse, dependence, addiction and diversion. It showed an small amount of oxycodone from different providersOPIOID RISK ASSESSMENT SCORE 10/26 high risk for chronic opioid therapyAberrant behavior: NonePending law suits: Used to be a nurse now on disabilitySocial History: Lives at home with boyfriend has 2 children 1 grandchild, finished bachelor in nursing denies smoking and she is not drinking or using illicit drugs anymoreDiagnostic studies:05/12/2023 CT of the abdomen and pelvis:IMPRESSION:1. Redemonstrated sequelae of necrotizing pancreatitis. Though thereis significant improvement in the lesser sac fat stranding,gastrohepatic stranding has minimally increased as described aboveraising a possibility of a acute episode of pancreatitis, correlationwith the serum amylase and lipase recommended2. Increased size of intra and peripancreatic fluid collections,consistent with walled-off necrosis.3. Hepatomegaly with heterogenously hypodense liver parenchymacompatible with steatosis.4. Cholecystectomy. Mild common bile duct dilation.I personally reviewed the images/study and I agree with the findingsas stated. This study was interpreted at [facility], [place], [place].MACRO:NoneElectronically signed by: CARISSA BUI 05/12/23 23:03Qowxioixlr7 years old with morbid obesity BMI 39 with seizure disorder, factor V Leiden with recurrent DVT, anxiety and depression, CVA, hypertension, binge alcohol drinking last episode 2013 and continues to have a chronic pancreatitis with significant allodynia and hyperalgesia on the abdominal wall.Plan for IV infusion therapy once every 2 weeks and the patient to follow-up with general surgery and GIPlanAt least 50% of the visit was involved in the discussion of the options for treatment. We discussed exercises, medication, interventional therapies and surgery. Healthy life style is essential with patient hard work to achieve the wellness. In addition; discussion with the patient and/or family about any of the diagnostic results, impressions and/or recommended diagnostic studies, prognosis, risks and benefits of treatment options, instructions for treatment and/or follow-up, importance of compliance with chosen treatment options, risk-factor reduction, and patient/family education.IV infusion therapy once every 2 weeksMay consider ketamine/lidocaine nasal spray for the acute attacksNo opioid therapy was started at this clinicWeight controlAlternative chronic pain therapies was discussed, encouraged and information was handedReturn to Clinic after IV infusion*Please note this report has been produced using speech recognition software and may contain errors related to that system including grammar, punctuation and spelling as well as words and phrases that may be inappropriate. If there are questions or concerns, please feel free to contact me to clarify. [facility] Work Phone: 05-23-2023 Hospital Discharge instructions Patient Education 05/23/2023 03:37:56 Abdominal Pain Abdominal Pain Abdominal pain is pain in the stomach or belly area. Everyone has this pain from time to time. In many cases it goes away on its own. But abdominal pain can sometimes be due to a serious problem, such as appendicitis. So it s important to know when to get help. Causes of abdominal pain There are many possible causes of abdominal pain. Common causes in adults include: Constipation, diarrhea, or gas Stomach acid flowing back up into the esophagus (acid reflux or heartburn) Severe acid reflux, called GERD (gastroesophageal reflux disease) A sore in the lining of the stomach or small intestine (peptic ulcer) Inflammation of the gallbladder, liver, or pancreas Gallstones or kidney stones Appendicitis Intestinal blockage An internal organ pushing through a muscle or other tissue (hernia) Urinary tract infections In women, menstrual cramps, fibroids, ovarian cysts, pelvic inflammatory disease, or endometriosis Inflammation or infection of the intestines, including Crohn's disease and ulcerative colitis Irritable bowel syndrome Diagnosing the cause of abdominal pain Your healthcare provider will give you a physical exam help find the cause of your pain. If needed, you will have tests. Belly pain has many possible causes. So it can be hard to find the reason for your pain. Giving details about your pain can help. Tell your provider where and when you feel the pain, and what makes it better or worse. Also let your provider know if you have other symptoms such as: Fever Tiredness Upset stomach (nausea) Vomiting Changes in bathroom habits Blood in the stool or black, tarry stool Weight loss that you can't explain (involuntary weight loss?) Also report any family history of stomach or intestinal problems, or cancers. Tell your provider about all your alcohol use and drug use. Tell your provider about all medicines you use, including herbs, vitamins, and supplements. Treating abdominal pain Some causes of pain need emergency medical treatment right away. These include appendicitis or a bowel blockage. Other problems can be treated with rest, fluids, or medicines. Your healthcare provider can give you specific instructions for treatment or self-care based on what is causing your pain. If you have vomiting or diarrhea, sip water or other clear fluids. When you are ready to eat solid foods again, start with small amounts of ibej-tv-qtctqr, low-fat foods. These include apple sauce, toast, or crackers. When to get medical care Call 911 or go to the hospital right away if you: Can t pass stool and are vomiting Are vomiting blood or have bloody diarrhea or black, tarry diarrhea Have chest, neck, or shoulder pain Feel like you might pass out Have pain in your shoulder blades with nausea Have sudden, severe belly pain Have new, severe pain unlike any you have felt before Have a belly that is rigid, hard, and hurts to touch Call your healthcare provider if you have: Pain for more than 5 days Bloating for more than 2 days Diarrhea for more than 5 days A fever of 100.4 F (38 C) or higher, or as directed by your healthcare provider Pain that gets worse Weight loss for no reason Continued lack of appetite Blood in your stool How to prevent abdominal pain Here are some tips to help prevent abdominal pain: Eat smaller amounts of food at each meal. Don't eat greasy, fried, or other high-fat foods. Don't eat foods that give you gas. Exercise regularly. Drink plenty of fluids. To help prevent GERD symptoms: Quit smoking. Reduce alcohol and foods that increase stomach acid. Don't use aspirin or rocj-kcd-bsqqaqc pain and fever medicines, if possible. This includes nonsteroidal anti-inflammatory drugs (NSAIDs). Lose excess weight. Finish eating at least 2 hours before you go to bed or lie down. Raise the head of your bed. 3035-8283 [employer]. [address] [place] [address], [place] [address]. All rights reserved. This information is not intended as a substitute for professional medical care. Always follow your healthcare professional's instructions. Follow Up Care 05/23/2023 02:32:38 [facility] Address: [address] [place] [address] Physicians [place], [place] [phone]- [phone] When:2-4 days [facility] Cammy 05-23-2023 Note Discharge Instructions Thank you for allowing [facility] to assist you with your healthcare needs. The following is important discharge information regarding your hospital visit. Diagnosis from Today's Visit Abdominal pain What to Do Next Instructions from Your Care Team No qualifying data available. Post Acute Orders No qualifying data available. You Need to Schedule the Following Appointments Follow Up with CJ RIVERA When Within 2-4 days Where: [address] [place], [place] [id number]- [phone] Allergies penicillin (Rash) Neurontin (Vomiting) sulfa drug Medications Please ask your primary doctor or pharmacist before taking any other medication not listed, including over the counter drugs, herbal medications, vitamins and or supplements as they may interact with your home medications. Please take this list to your next doctor s visit. Bring all medications you take, including over the counter medications, herbals and other supplements with you to your doctor s visit. Patients and families are reminded to discard old lists and to update any records with all medication providers or retail pharmacies. Education Materials Abdominal Pain Abdominal pain is pain in the stomach or belly area. Everyone has this pain from time to time. In many cases it goes away on its own. But abdominal pain can sometimes be due to a serious problem, such as appendicitis. So it s important to know when to get help. Causes of abdominal pain There are many possible causes of abdominal pain. Common causes in adults include: Constipation, diarrhea, or gas Stomach acid flowing back up into the esophagus (acid reflux or heartburn) Severe acid reflux, called GERD (gastroesophageal reflux disease) A sore in the lining of the stomach or small intestine (peptic ulcer) Inflammation of the gallbladder, liver, or pancreas Gallstones or kidney stones Appendicitis Intestinal blockage An internal organ pushing through a muscle or other tissue (hernia) Urinary tract infections In women, menstrual cramps, fibroids, ovarian cysts, pelvic inflammatory disease, or endometriosis Inflammation or infection of the intestines, including Crohn's disease and ulcerative colitis Irritable bowel syndrome Diagnosing the cause of abdominal pain Your healthcare provider will give you a physical exam help find the cause of your pain. If needed, you will have tests. Belly pain has many possible causes. So it can be hard to find the reason for your pain. Giving details about your pain can help. Tell your provider where and when you feel the pain, and what makes it better or worse. Also let your provider know if you have other symptoms such as: Fever Tiredness Upset stomach (nausea) Vomiting Changes in bathroom habits Blood in the stool or black, tarry stool Weight loss that you can't explain (involuntary weight loss?) Also report any family history of stomach or intestinal problems, or cancers. Tell your provider about all your alcohol use and drug use. Tell your provider about all medicines you use, including herbs, vitamins, and supplements. Treating abdominal pain Some causes of pain need emergency medical treatment right away. These include appendicitis or a bowel blockage. Other problems can be treated with rest, fluids, or medicines. Your healthcare provider can give you specific instructions for treatment or self-care based on what is causing your pain. If you have vomiting or diarrhea, sip water or other clear fluids. When you are ready to eat solid foods again, start with small amounts of wubw-tx-bteohe, low-fat foods. These include apple sauce, toast, or crackers. When to get medical care Call 911 or go to the hospital right away if you: Can t pass stool and are vomiting Are vomiting blood or have bloody diarrhea or black, tarry diarrhea Have chest, neck, or shoulder pain Feel like you might pass out Have pain in your shoulder blades with nausea Have sudden, severe belly pain Have new, severe pain unlike any you have felt before Have a belly that is rigid, hard, and hurts to touch Call your healthcare provider if you have: Pain for more than 5 days Bloating for more than 2 days Diarrhea for more than 5 days A fever of 100.4 F (38 C) or higher, or as directed by your healthcare provider Pain that gets worse Weight loss for no reason Continued lack of appetite Blood in your stool How to prevent abdominal pain Here are some tips to help prevent abdominal pain: Eat smaller amounts of food at each meal. Don't eat greasy, fried, or other high-fat foods. Don't eat foods that give you gas. Exercise regularly. Drink plenty of fluids. To help prevent GERD symptoms: Quit smoking. Reduce alcohol and foods that increase stomach acid. Don't use aspirin or kjvw-qih-lujyxfl pain and fever medicines, if possible. This includes nonsteroidal anti-inflammatory drugs (NSAIDs). Lose excess weight. Finish eating at least 2 hours before you go to bed or lie down. Raise the head of your bed. 2092-8163 [employer]. [address] [place], [place] [address]. All rights reserved. This information is not intended as a substitute for professional medical care. Always follow your healthcare professional's instructions. Additional Information VACCINATE! IT SAVES LIVES! Members of the community who have not yet received the COVID-19 vaccine and would like to receive it can visit one of [facility] vaccine clinics. There are many vaccine clinic locations within the [facility]. For locations and available times, please visit [email or web address] . It is important to note that some COVID mobile vaccine clinics are held outdoors and may be canceled in rainy or stormy conditions. To learn more about pediatric vaccinations (ages 5-11), we invite you to visit the [facility] webpage. [email or web address]/pages [email or web address] sked-Questions.html To learn more about the COVID-19 vaccine, we invite you to visit the CDC website for a list of frequently asked questions. https://www.cdc.gov/coronavirus/2019 -ncov/vaccines/faq.html [facility] Patient Portal Access Instructions: Stay connected with your healthcare team and access your personal medical information anytime with the [facility] Patient Portal. If you would like a full copy of your medical records please contact the [facility] Medical Records Department Tuesday through Tuesday between 8a.m. and 4:30p.m. Please follow the directions below to access the portal: 1.Access the email account you provided upon registration to the [facility].2.Look for an invitation email from [facility].3.Open the email and access the invitation link: Accept Invitation to [facility]4.Fill in the required azul to create your account. Sign into [email or web address] with your username and password that you created in the above steps to stay up to date. You can then view a summary of results, a summary of your visits, and the ability to download your summaries to your computer or send the information securely to a physician. Remember that your healthcare information is confidential, so carefully consider who you will allow to register on the [facility] Patient Portal for access to your information. You can also access the [facility] Patient Portal on the [employer] leslie. Simply click on Health Records under Health Data and then click on the [employer] logo. HOW TO SAFELY DISPOSE OF PRESCRIPTION MEDICATIONS Please use one of the following methods to safely dispose of your unused medications. 1.Use a drug disposal kit: the drug disposal pouch allows you to safely discard your old and unused drugs. Ask your nurse to give you one when you are discharged.2.Visit a local take-back location: Many local pharmacies and police departments have programs that collect old and unwanted prescription drugs. Call your local pharmacy or go to [email or web address].CMGE/[email or web address] to find one close to you.3.Make use of household items: Use cat litter or old coffee grounds to dispose medications if other options are not available. Mix your drugs with these household products, seal them in an airtight container and throw it into the garbage. Call [facility]: [phone] to be sure your drugs can be disposed of in this way. Some medicines may require a different approach.4.Never flush your medications down the toilet. IF YOU HAVE BEEN PRESCRIBED AN OPIOIDS FOR PAIN If you have been prescribed an opioid (such as hydrocodone, oxycodone or morphine), it is critical to understand the possible side effects and risks of opioid pain medications. Even when taken as directed, opioids can have several side effects including: Tolerance, meaning you might need to take more of a medication for the same pain relief. Nausea, vomiting and/or constipation. Sleepiness, dizziness, dry mouth, confusion, depression or itching. Physical dependence, meaning you have withdrawal symptoms when a medication is stopped ? this can develop within a few days. KNOW YOUR RESPONSIBILITIES It is important to know exactly how much and how often to take the opioid pain medications you are prescribed. Never take opioids in higher amounts or more often than prescribed. Do not combine opioids with alcohol or other drugs that cause drowsiness, such as benzodiazepines, also known as benzos, including diazepam and alprazolam, muscle relaxants or sleep aids. Never sell or share prescription opioids. This is illegal. Store opioids in a secure place and out of reach of others (including children, family, friends and visitors). The last page(s) of this document has been signed and retained as a CHART COPY Signatures Patient Education Materials Abdominal Pain Medication Leaflets My discharge plan and instructions have been reviewed and explained to me and I,DEMI RUTLEDGEANDA M understand my current condition and have read and understand these discharge instructions. I have received a written copy of the plan/instructions. If I have questions, I am aware that I should contact my doctor. 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 The following is important discharge information regarding your hospital visit. Diagnosis from Today's Visit Abdominal pain What to Do Next Instructions from Your Care Team No qualifying data available. Post Acute Orders No qualifying data available. You Need to Schedule the Following Appointments Follow Up with CJ RIVERA When Within 2-4 days Where: [address] [facility] [place] [phone]- [phone] Allergies penicillin (Rash) Neurontin (Vomiting) sulfa drug Medications Please ask your primary doctor or pharmacist before taking any other medication not listed, including over the counter drugs, herbal medications, vitamins and or supplements as they may interact with your home medications. What How Much When Instructions Last Dose Changed ondansetron (ondansetron 4 mg oral tablet, disintegrating) 1 tab(s) by mouth Every 8 hours Duration: 3 Days Printed Prescription Changed ondansetron (ondansetron 8 mg oral tablet, disintegrating) 1 tab(s) by mouth Three (3) times a day as needed for Nausea Unchanged acetaminophen-oxyCODONE (acetaminophen-oxyCODONE 325 mg-5 mg oral tablet) 2 tab(s) by mouth Every 6 hours as needed for for pain Unchanged APAP/ butalbital/ caffeine (APAP/ butalbital/ caffeine 325-50-40 mg oral tablet (Fioricet)) 1 tab(s) by mouth Every 4 hours as needed for as needed in absence of pcp Unchanged ARIPiprazole (ARIPiprazole 10 mg oral tablet) 1 tab(s) by mouth Once a day Unchanged ascorbic acid (Vitamin C 1000 mg oral tablet) 1 tab(s) by mouth Once a day Unchanged benztropine (benztropine 0.5 mg oral tablet) 1 tab(s) by mouth Two (2) times a day Take 1 tab TWICE A DAY As Needed for eps Unchanged cephalexin (cephalexin 500 mg oral tablet) 1 tab(s) by mouth Four (4) times a day Duration: 7 Days Unchanged cholecalciferol (cholecalciferol 1250 mcg (50,000 intl units) oral capsule) 1 cap by mouth Every Tuesday Duration: 90 Days Unchanged clonazePAM (clonazePAM 0.5 mg oral tablet) 1 tab(s) by mouth Once a day as needed for Anxiety Unchanged cloNIDine (cloNIDine 0.2 mg oral tablet) 1 tab(s) by mouth Once a day Duration: 90 Days Unchanged dicyclomine (dicyclomine 10 mg oral capsule) 1 cap by mouth Four (4) times a day Duration: 10 Days Unchanged divalproex sodium (divalproex sodium 250 mg oral delayed release tablet) Take 1 tab TWICE A DAY for Mood Unchanged fenofibrate (fenofibrate 145 mg oral tablet) 1 tab(s) by mouth Once a day Unchanged furosemide (furosemide 40 mg oral tablet) 1 tab(s) by mouth Once a day Duration: 90 Days Unchanged hydroCHLOROthiazide (hydroCHLOROthiazide 25 mg oral tablet) 1 tab(s) by mouth Once a day Unchanged lacosamide (lacosamide 100 mg oral tablet) 1 tab(s) by mouth Once a day (in the morning) Unchanged lacosamide (lacosamide 100 mg oral tablet) 2 tab(s) by mouth Once a day (in the evening) Unchanged lactulose (lactulose 10 g/ 15 mL oral syrup) 15 Milliliter by mouth Two (2) times a day as needed for as needed for constipation Unchanged linaclotide (Linzess 290 mcg oral capsule) 1 cap by mouth Once a day Duration: 90 Days Unchanged magnesium salicylate (magnesium salicylate 600 mg oral tablet) 1 tab(s) by mouth Every 4 hours Unchanged methenamine (methenamine hippurate 1 g oral tablet) 1 tab(s) by mouth Once a day Duration: 90 Days Unchanged metoprolol (metoprolol succinate 25 mg oral TABLET extended release) 1 tab(s) by mouth Once a day Duration: 30 Days Unchanged mirtazapine (mirtazapine 7.5 mg oral tablet) 1 tab(s) by mouth Daily at bedtime Unchanged naloxone (naloxone 4 mg/ 0.1 mL nasal spray) 1 spray(s) Intranasal As Directed as needed for see pharmacy notes may repeat every 2 to 3 minutes until patient responds Unchanged nitrofurantoin (Macrobid 100 mg oral capsule) 1 cap by mouth Once a day as needed for Symptoms of urinary discomfort Take with food Unchanged nortriptyline (nortriptyline 25 mg oral capsule) 1 cap by mouth Three (3) times a day Unchanged omeprazole (omeprazole 40 mg oral delayed release capsule) 1 cap by mouth Two (2) times a day Duration: 90 Days Unchanged oxyCODONE (oxyCODONE 5 mg oral tablet ( IMMEDIATE release )) 2 tab(s) by mouth Every 6 hours as needed for for pain Unchanged pancrelipase (Creon 12,000 units oral delayed release capsule) 1 cap by mouth Three (3) times a day Unchanged pancrelipase (Creon 36,000 units oral delayed release capsule) 1 cap by mouth Four (4) times a day Unchanged potassium chloride (potassium chloride 20 mEq oral tablet, extended release) 1 tab(s) by mouth Three (3) times a day Duration: 90 Days Unchanged promethazine (promethazine 25 mg oral tablet) 1 tab(s) by mouth Every 6 hours as needed for for nausea/vomiting Unchanged promethazine (promethazine 25 mg oral tablet) 1 tab(s) by mouth Two (2) times a day Duration: 14 Days Unchanged rivaroxaban (Xarelto 10 mg oral tablet) 1 tab(s) by mouth Once a day Duration: 90 Days Unchanged rOPINIRole (rOPINIRole 0.5 mg oral tablet) 1 tab(s) by mouth Two (2) times a day Duration: 90 Days Unchanged valACYclovir (valACYclovir 500 mg oral tablet) 1 tab(s) by mouth Once a day Duration: 90 Days Unchanged venlafaxine (venlafaxine 150 mg oral capsule, extended release) 1 cap by mouth Once a day Duration: 90 Days for a total of 225 mg/ day. Unchanged venlafaxine (venlafaxine 75 mg oral capsule, extended release) 1 cap by mouth Once a day Duration: 90 Days for a total of 225 mg/ day. Please take this list to your next doctor s visit. Bring all medications you take, including over the counter medications, herbals and other supplements with you to your doctor s visit. Patients and families are reminded to discard old lists and to update any records with all medication providers or retail pharmacies. Education Materials Abdominal Pain Abdominal pain is pain in the stomach or belly area. Everyone has this pain from time to time. In many cases it goes away on its own. But abdominal pain can sometimes be due to a serious problem, such as appendicitis. So it s important to know when to get help. Causes of abdominal pain There are many possible causes of abdominal pain. Common causes in adults include: Constipation, diarrhea, or gas Stomach acid flowing back up into the esophagus (acid reflux or heartburn) Severe acid reflux, called GERD (gastroesophageal reflux disease) A sore in the lining of the stomach or small intestine (peptic ulcer) Inflammation of the gallbladder, liver, or pancreas Gallstones or kidney stones Appendicitis Intestinal blockage An internal organ pushing through a muscle or other tissue (hernia) Urinary tract infections In women, menstrual cramps, fibroids, ovarian cysts, pelvic inflammatory disease, or endometriosis Inflammation or infection of the intestines, including Crohn's disease and ulcerative colitis Irritable bowel syndrome Diagnosing the cause of abdominal pain Your healthcare provider will give you a physical exam help find the cause of your pain. If needed, you will have tests. Belly pain has many possible causes. So it can be hard to find the reason for your pain. Giving details about your pain can help. Tell your provider where and when you feel the pain, and what makes it better or worse. Also let your provider know if you have other symptoms such as: Fever Tiredness Upset stomach (nausea) Vomiting Changes in bathroom habits Blood in the stool or black, tarry stool Weight loss that you can't explain (involuntary weight loss?) Also report any family history of stomach or intestinal problems, or cancers. Tell your provider about all your alcohol use and drug use. Tell your provider about all medicines you use, including herbs, vitamins, and supplements. Treating abdominal pain Some causes of pain need emergency medical treatment right away. These include appendicitis or a bowel blockage. Other problems can be treated with rest, fluids, or medicines. Your healthcare provider can give you specific instructions for treatment or self-care based on what is causing your pain. If you have vomiting or diarrhea, sip water or other clear fluids. When you are ready to eat solid foods again, start with small amounts of mdzc-nr-dakapu, low-fat foods. These include apple sauce, toast, or crackers. When to get medical care Call 911 or go to the hospital right away if you: Can t pass stool and are vomiting Are vomiting blood or have bloody diarrhea or black, tarry diarrhea Have chest, neck, or shoulder pain Feel like you might pass out Have pain in your shoulder blades with nausea Have sudden, severe belly pain Have new, severe pain unlike any you have felt before Have a belly that is rigid, hard, and hurts to touch Call your healthcare provider if you have: Pain for more than 5 days Bloating for more than 2 days Diarrhea for more than 5 days A fever of 100.4 F (38 C) or higher, or as directed by your healthcare provider Pain that gets worse Weight loss for no reason Continued lack of appetite Blood in your stool How to prevent abdominal pain Here are some tips to help prevent abdominal pain: Eat smaller amounts of food at each meal. Don't eat greasy, fried, or other high-fat foods. Don't eat foods that give you gas. Exercise regularly. Drink plenty of fluids. To help prevent GERD symptoms: Quit smoking. Reduce alcohol and foods that increase stomach acid. Don't use aspirin or twhc-fon-mrojpxp pain and fever medicines, if possible. This includes nonsteroidal anti-inflammatory drugs (NSAIDs). Lose excess weight. Finish eating at least 2 hours before you go to bed or lie down. Raise the head of your bed. [id number] [employer]. [address] [place] [address], [place] [address]. All rights reserved. This information is not intended as a substitute for professional medical care. Always follow your healthcare professional's instructions. Additional Information VACCINATE! IT SAVES LIVES! Members of the community who have not yet received the COVID-19 vaccine and would like to receive it can visit one of [facility] vaccine clinics. There are many vaccine clinic locations within the [facility]. For locations and available times, please visit [email or web address] . It is important to note that some COVID mobile vaccine clinics are held outdoors and may be canceled in rainy or stormy conditions. To learn more about pediatric vaccinations (ages 5-11), we invite you to visit the [employer] webpage. [email or web address]/pages /[email or web address]-Svtovnenfhp-Frequently-A sked-Questions.html To learn more about the COVID-19 vaccine, we invite you to visit the CDC website for a list of frequently asked questions. https://www.cdc.gov/coronavirus/2019 -ncov/vaccines/faq.html [facility] Patient Portal Access Instructions: Stay connected with your healthcare team and access your personal medical information anytime with the [facility] Patient Portal. If you would like a full copy of your medical records please contact the [facility] Medical Records Department Tuesday through Tuesday between 8a.m. and 4:30p.m. Please follow the directions below to access the portal: 1.Access the email account you provided upon registration to the [facility].2.Look for an invitation email from [facility].3.Open the email and access the invitation link: Accept Invitation to [facility]4.Fill in the required azul to create your account. Sign into [email or web address] with your username and password that you created in the above steps to stay up to date. You can then view a summary of results, a summary of your visits, and the ability to download your summaries to your computer or send the information securely to a physician. Remember that your healthcare information is confidential, so carefully consider who you will allow to register on the [facility] Patient Portal for access to your information. You can also access the [facility] Patient Portal on the [employer] leslie. Simply click on Health Records under [employer] and then click on the [employer] logo. HOW TO SAFELY DISPOSE OF PRESCRIPTION MEDICATIONS Please use one of the following methods to safely dispose of your unused medications. 1.Use a drug disposal kit: the drug disposal pouch allows you to safely discard your old and unused drugs. Ask your nurse to give you one when you are discharged.2.Visit a local take-back location: Many local pharmacies and police departments have programs that collect old and unwanted prescription drugs. Call your local pharmacy or go to http://[employer].CMGE/8U0Ln2q to find one close to you.3.Make use of household items: Use cat litter or old coffee grounds to dispose medications if other options are not available. Mix your drugs with these household products, seal them in an airtight container and throw it into the garbage. Call [facility]: [phone] to be sure your drugs can be disposed of in this way. Some medicines may require a different approach.4.Never flush your medications down the toilet. IF YOU HAVE BEEN PRESCRIBED AN OPIOIDS FOR PAIN If you have been prescribed an opioid (such as hydrocodone, oxycodone or morphine), it is critical to understand the possible side effects and risks of opioid pain medications. Even when taken as directed, opioids can have several side effects including: Tolerance, meaning you might need to take more of a medication for the same pain relief. Nausea, vomiting and/or constipation. Sleepiness, dizziness, dry mouth, confusion, depression or itching. Physical dependence, meaning you have withdrawal symptoms when a medication is stopped ? this can develop within a few days. KNOW YOUR RESPONSIBILITIES It is important to know exactly how much and how often to take the opioid pain medications you are prescribed. Never take opioids in higher amounts or more often than prescribed. Do not combine opioids with alcohol or other drugs that cause drowsiness, such as benzodiazepines, also known as benzos, including diazepam and alprazolam, muscle relaxants or sleep aids. Never sell or share prescription opioids. This is illegal. Store opioids in a secure place and out of reach of others (including children, family, friends and visitors). The last page(s) of this document has been signed and retained as a CHART COPY Signatures Patient Education Materials Abdominal Pain Medication Leaflets My discharge plan and instructions have been reviewed and explained to me and I,DEMI RUTLEDGEANDA M understand my current condition and have read and understand these discharge instructions. I have received a written copy of the plan/instructions. If I have questions, I am aware that I should contact my doctor. 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 MICRO - Microbiology PROCEDURE: Urine Culture [*1] SOURCE: Urine, Clean Catch BODY SITE: COLLECTED DATE/TIME: 05/19/2023 18:00 EDT RECEIVED DATE/TIME: 05/20/2023 14:36 EDT START DATE/TIME: 05/20/2023 14:36 EDT FREE TEXT SOURCE: FINAL REPORTS Final Report [] Verified Date/Time/Personnel: 05/21/2023 14:32 EDT 50,000 - 100,000 cfu/ml Multiple bacterial morphotypes present. Probable Contamination. Suggest recollection if clinically indicated. Performing Locations *1: This test was performed at: [address], [facility] , [facility] ([place]) 05-19-2023 Hospital Discharge instructions Patient Education 05/19/2023 20:05:11 Urinary Tract Infections in Women Urinary Tract Infections in Women Urinary tract infections (UTIs) are most often caused by bacteria. These bacteria enter the urinary tract. The bacteria may come from outside the body. Or they may travel from the skin outside the rectum or vagina into the urethra. Female anatomy makes it easy for bacteria from the bowel to enter a woman s urinary tract, which is the most common source of UTI. This means women develop UTIs more often than men. Pain in or around the urinary tract is a common UTI symptom. But the only way to know for sure if you have a UTI for the healthcare provider to test your urine. The two tests that may be done are the urinalysis and urine culture. Types of UTIs Cystitis. A bladder infection (cystitis) is the most common UTI in women. You may have urgent or frequent urination. You may also have pain, burning when you urinate, and bloody urine. Urethritis. This is an inflamed urethra, which is the tube that carries urine from the bladder to outside the body. You may have lower stomach or back pain. You may also have urgent or frequent urination. Pyelonephritis. This is a kidney infection. If not treated, it can be serious and damage your kidneys. In severe cases, you may need to stay in the hospital. You may have a fever and lower back pain. Medicines to treat a UTI Most UTIs are treated with antibiotics. These kill the bacteria. The length of time you need to take them depends on the type of infection. It may be as short as 3 days. If you have repeated UTIs, you may need a low-dose antibiotic for several months. Take antibiotics exactly as directed. Don t stop taking them until all of the medicine is gone. If you stop taking the antibiotic too soon, the infection may not go away. You may also develop a resistance to the antibiotic. This can make it much harder to treat. Lifestyle changes to treat and prevent UTIs The lifestyle changes below will help get rid of your UTI. They may also help prevent future UTIs. Drink plenty of fluids. This includes water, juice, or other caffeine-free drinks. Fluids help flush bacteria out of your body. Empty your bladder. Always empty your bladder when you feel the urge to urinate. And always urinate before going to sleep. Urine that stays in your bladder can lead to infection. Try to urinate before and after sex as well. Practice good personal hygiene. Wipe yourself from front to back after using the toilet. This helps keep bacteria from getting into the urethra. Use condoms during sex. These help prevent UTIs caused by sexually transmitted bacteria. Also don't use spermicides during sex. These can increase the risk for UTIs. Choose other forms of control instead. For women who tend to get UTIs after sex, a low-dose of a preventive antibiotic may be used. Be sure to discuss this option with your healthcare provider. Follow up with your healthcare provider as directed. He or she may test to make sure the infection has cleared. If needed, more treatment may be started. [id number] [employer]. [address] [place] [address]. All rights reserved. This information is not intended as a substitute for professional medical care. Always follow your healthcare professional's instructions. 05/19/2023 20:05:01 Pancreatitis Pancreatitis The pancreas is an organ in the abdomen that secretes digestive juices into the stomach. Pancreatitis is an inflammation of the pancreas. In many cases, it is caused when the duct that connects the pancreas and gallbladder is blocked by a gallstone. Heavy alcohol use is another major cause. Less common causes can include medicines, trauma, certain medical procedures, viruses, and toxins. Sometimes the cause of pancreatitis cannot be found. Genetic testing is sometimes done in those cases, especially if there is a family history of pancreas disease. Symptoms of pancreatitis include: Severe abdominal pain Nausea and vomiting Severe indigestion Racing heart Fever If the pancreatitis becomes chronic, diarrhea, chronic pain, weight loss, and poor nutrition can result. At first, pancreatitis may be treated in the hospital. It may be diagnosed by history, exam, blood tests, and sometimes imaging studies. There, fluids and medicines can be provided. The underlying cause of the problem must also be treated to prevent further problems. If gallstones are the cause, you and your healthcare provider can discuss options for treating them. This usually results in gallbladder surgery. Sometimes another test must be done to clear the drainage ducts of a blocked gallstones. If alcohol is the cause, talk with your healthcare provider about a program to help you stop drinking. Home care Don't drink alcohol. Rest in bed or sit up in a chair until you feel better. Take medicines as prescribed. If you were given an antibiotic for infection, take it until it is gone, even if you feel better. Let your healthcare provider know if you vomit up your medicine. Tips for eating and drinking: If instructed, avoid eating or drinking until nausea and vomiting go away. Try sipping clear liquids to prevent dehydration. When you begin eating again, start with small amounts. Have small, more frequent meals rather than larger meals. Low fat meals are best. Follow-up care Follow up with your healthcare provider as advised. When to seek medical advice Call your healthcare provider right away for any of the following: Continued or worsening pain Repeated vomiting Dizziness, weakness Fever of 100.4 F (38 C) or higher, or as directed by your healthcare provider Severe muscle cramps Call 911 Call 911 if you have any of the following: Vomiting blood or large amounts of blood in stool Seizure Loss of consciousness [phone] [employer]. [address] [place] [address]. All rights reserved. This information is not intended as a substitute for professional medical care. Always follow your healthcare professional's instructions. Follow Up Care 05/19/2023 14:47:22 With:[facility] Address: When:2-4 days With:CJ RIVERA Address: [address] [address] [phone] When:2-4 days With:Go to emergency room if symptoms worsen Address:Unknown When:2-4 days [facility] 05-19-2023 Note Discharge Instructions Thank you for allowing [facility] to assist you with your healthcare needs. The following is important discharge information regarding your hospital visit. Diagnosis from Today's Visit Abdominal pain Medication refill Pancreatitis What to Do Next Instructions from Your Care Team Urine culture pending. Clear liquid diet advance as tolerated. No qualifying data available. Post Acute Orders No qualifying data available. You Need to Schedule the Following Appointments Follow Up with [facility] When Within 2-4 days Where: Follow Up with CJ RIVERA When Within 2-4 days Where: [address] [place] [address]- [phone] Follow Up with Go to emergency room if symptoms worsen When Within 2-4 days Allergies penicillin (Rash) Neurontin (Vomiting) sulfa drug Medications Please ask your primary doctor or pharmacist before taking any other medication not listed, including over the counter drugs, herbal medications, vitamins and or supplements as they may interact with your home medications. What How Much When Why Instructions Last Dose New acetaminophen-hydrocodone (Joppa 325- 5 mg oral tablet) 1 tab(s) by mouth Every 4 hours as needed for for pain Pancreatitis Duration: 3 Days Printed Prescription New cephalexin (cephalexin 500 mg oral tablet) 1 tab(s) by mouth Four (4) times a day Duration: 7 Days Printed Prescription Changed ondansetron (ondansetron 8 mg oral tablet, disintegrating) 1 tab(s) by mouth Three (3) times a day as needed for Nausea Changed ondansetron (Zofran 4 mg oral tablet) 1 tab(s) by mouth Every 8 hours Printed Prescription Unchanged acetaminophen-oxyCODONE (acetaminophen-oxyCODONE 325 mg-5 mg oral tablet) 2 tab(s) by mouth Every 6 hours as needed for for pain Unchanged APAP/ butalbital/ caffeine (APAP/ butalbital/ caffeine 325-50-40 mg oral tablet (Fioricet)) 1 tab(s) by mouth Every 4 hours as needed for as needed in absence of pcp Unchanged ARIPiprazole (ARIPiprazole 10 mg oral tablet) 1 tab(s) by mouth Once a day Unchanged ascorbic acid (Vitamin C 1000 mg oral tablet) 1 tab(s) by mouth Once a day Unchanged cholecalciferol (cholecalciferol 1250 mcg (50,000 intl units) oral capsule) 1 cap by mouth Every Tuesday Duration: 90 Days Unchanged clonazePAM (clonazePAM 0.5 mg oral tablet) 1 tab(s) by mouth Once a day as needed for Anxiety Unchanged cloNIDine (cloNIDine 0.2 mg oral tablet) 1 tab(s) by mouth Once a day Duration: 90 Days Unchanged dicyclomine (dicyclomine 10 mg oral capsule) 1 cap by mouth Four (4) times a day Duration: 10 Days Unchanged fenofibrate (fenofibrate 145 mg oral tablet) 1 tab(s) by mouth Once a day Unchanged furosemide (furosemide 40 mg oral tablet) 1 tab(s) by mouth Once a day Duration: 90 Days Unchanged hydroCHLOROthiazide (hydroCHLOROthiazide 25 mg oral tablet) 1 tab(s) by mouth Once a day Unchanged lacosamide (lacosamide 100 mg oral tablet) 1 tab(s) by mouth Once a day (in the morning) Unchanged lacosamide (lacosamide 100 mg oral tablet) 2 tab(s) by mouth Once a day (in the evening) Unchanged lactulose (lactulose 10 g/ 15 mL oral syrup) 15 Milliliter by mouth Two (2) times a day as needed for as needed for constipation Unchanged linaclotide (Linzess 290 mcg oral capsule) 1 cap by mouth Once a day Duration: 90 Days Unchanged magnesium salicylate (magnesium salicylate 600 mg oral tablet) 1 tab(s) by mouth Every 4 hours Unchanged methenamine (methenamine hippurate 1 g oral tablet) 1 tab(s) by mouth Once a day Duration: 90 Days Unchanged metoprolol (metoprolol succinate 25 mg oral TABLET extended release) 1 tab(s) by mouth Once a day Duration: 30 Days Unchanged mirtazapine (mirtazapine 7.5 mg oral tablet) 1 tab(s) by mouth Daily at bedtime Unchanged naloxone (naloxone 4 mg/ 0.1 mL nasal spray) 1 spray(s) Intranasal As Directed as needed for see pharmacy notes may repeat every 2 to 3 minutes until patient responds Unchanged nitrofurantoin (Macrobid 100 mg oral capsule) 1 cap by mouth Once a day as needed for Symptoms of urinary discomfort Take with food Unchanged nortriptyline (nortriptyline 25 mg oral capsule) 1 cap by mouth Three (3) times a day Unchanged omeprazole (omeprazole 40 mg oral delayed release capsule) 1 cap by mouth Two (2) times a day Duration: 90 Days Unchanged oxyCODONE (oxyCODONE 5 mg oral tablet ( IMMEDIATE release )) 2 tab(s) by mouth Every 6 hours as needed for for pain Unchanged pancrelipase (Creon 12,000 units oral delayed release capsule) 1 cap by mouth Three (3) times a day Unchanged pancrelipase (Creon 36,000 units oral delayed release capsule) 1 cap by mouth Four (4) times a day Unchanged potassium chloride (potassium chloride 20 mEq oral tablet, extended release) 1 tab(s) by mouth Three (3) times a day Duration: 90 Days Unchanged promethazine (promethazine 25 mg oral tablet) 1 tab(s) by mouth Every 6 hours as needed for for nausea/vomiting Unchanged promethazine (promethazine 25 mg oral tablet) 1 tab(s) by mouth Two (2) times a day Duration: 14 Days Unchanged rivaroxaban (Xarelto 10 mg oral tablet) 1 tab(s) by mouth Once a day Duration: 90 Days Unchanged rOPINIRole (rOPINIRole 0.5 mg oral tablet) 1 tab(s) by mouth Two (2) times a day Duration: 90 Days Unchanged valACYclovir (valACYclovir 500 mg oral tablet) 1 tab(s) by mouth Once a day Duration: 90 Days Unchanged venlafaxine (venlafaxine 150 mg oral capsule, extended release) 1 cap by mouth Once a day Duration: 90 Days for a total of 225 mg/ day. Unchanged venlafaxine (venlafaxine 75 mg oral capsule, extended release) 1 cap by mouth Once a day Duration: 90 Days for a total of 225 mg/ day. Please take this list to your next doctor s visit. Bring all medications you take, including over the counter medications, herbals and other supplements with you to your doctor s visit. Patients and families are reminded to discard old lists and to update any records with all medication providers or retail pharmacies. Medication Leaflets ondansetron (oral) (on BENJI estrada) What is the most important information I should know about ondansetron? You should not use ondansetron if you are also using apomorphine (Apokyn). What is ondansetron? Ondansetron blocks the actions of chemicals in the body that can trigger nausea and vomiting. Ondansetron is used to prevent nausea and vomiting that may be caused by surgery, cancer chemotherapy, or radiation treatment. Ondansetron may be used for purposes not listed in this medication guide. What should I discuss with my health care provider before taking ondansetron? You should not use ondansetron if: you are also using apomorphine (Apokyn); or you are allergic to ondansetron or similar medicines (dolasetron, granisetron, palonosetron). To make sure ondansetron is safe for you, tell your doctor if you have: liver disease; an electrolyte imbalance (such as low levels of potassium or magnesium in your blood); congestive heart failure, slow heartbeats; a personal or family history of long QT syndrome; or a blockage in your digestive tract (stomach or intestines). Ondansetron is not expected to harm an unborn baby. Tell your doctor if you are . It is not known whether ondansetron passes into breast milk or if it could harm a nursing baby. Tell your doctor if you are breast-feeding a baby. Ondansetron is not approved for use by anyone younger than 4 years old. Ondansetron orally disintegrating tablets may contain phenylalanine. Tell your doctor if you have phenylketonuria (PKU). How should I take ondansetron? Follow all directions on your prescription label. Do not take this medicine in larger or smaller amounts or for longer than recommended. Ondansetron can be taken with or without food. The first dose of ondansetron is usually taken before the start of your surgery, chemotherapy, or radiation treatment. Follow your doctor's dosing instructions very carefully. Take the ondansetron regular tablet with a full glass of water. To take the orally disintegrating tablet (Zofran ODT): Keep the tablet in its blister pack until you are ready to take it. Open the package and peel back the foil. Do not push a tablet through the foil or you may damage the tablet. Use dry hands to remove the tablet and place it in your mouth. Do not swallow the tablet whole. Allow it to dissolve in your mouth without chewing. Swallow several times as the tablet dissolves. To use ondansetron oral soluble film (strip) (Zuplenz): Keep the strip in the foil pouch until you are ready to use the medicine. Using dry hands, remove the strip and place it on your tongue. It will begin to dissolve right away. Do not swallow the strip whole. Allow it to dissolve in your mouth without chewing. Swallow several times after the strip dissolves. If desired, you may drink liquid to help swallow the dissolved strip. Wash your hands after using Zuplenz. Measure liquid medicine with the dosing syringe provided, or with a special dose-measuring spoon or medicine cup. If you do not have a dose-measuring device, ask your pharmacist for one. Store at room temperature away from moisture, heat, and light. Store liquid medicine in an upright position. What happens if I miss a dose? Take the missed dose as soon as you remember. Skip the missed dose if it is almost time for your next scheduled dose. Do not take extra medicine to make up the missed dose. What happens if I overdose? Seek emergency medical attention or call the Poison Help line at . Overdose symptoms may include sudden loss of vision, severe constipation, feeling light-headed, or fainting. What should I avoid while taking ondansetron? Ondansetron may impair your thinking or reactions. Be careful if you drive or do anything that requires you to be alert. What are the possible side effects of ondansetron? Get emergency medical help if you have signs of an allergic reaction: rash, hives; fever, chills, difficult breathing; swelling of your face, lips, tongue, or throat. Call your doctor at once if you have: severe constipation, stomach pain, or bloating; headache with chest pain and severe dizziness, fainting, fast or pounding heartbeats; fast or pounding heartbeats; jaundice (yellowing of the skin or eyes); blurred vision or temporary vision loss (lasting from only a few minutes to several hours); high levels of serotonin in the body--agitation, hallucinations, fever, fast heart rate, overactive reflexes, nausea, vomiting, diarrhea, loss of coordination, fainting. Common side effects may include: diarrhea or constipation; headache; drowsiness; or tired feeling. This is not a complete list of side effects and others may occur. Call your doctor for medical advice about side effects. You may report side effects to FDA at 2-394-ILM-5228. What other drugs will affect ondansetron? Ondansetron can cause a serious heart problem, especially if you use certain medicines at the same time, including antibiotics, antidepressants, heart rhythm medicine, antipsychotic medicines, and medicines to treat cancer, malaria, HIV or AIDS. Tell your doctor about all medicines you use, and those you start or stop using during your treatment with ondansetron. Taking ondansetron while you are using certain other medicines can cause high levels of serotonin to build up in your body, a condition called 'serotonin syndrome,' which can be fatal. Tell your doctor if you also use: medicine to treat depression; medicine to treat a psychiatric disorder; a narcotic (opioid) medication; or medicine to prevent nausea and vomiting. This list is not complete and many other drugs can interact with ondansetron. This includes prescription and [id number]-[id number] medicines, vitamins, and herbal products. Give a list of all your medicines to any healthcare provider who treats you. Where can I get more information? Your pharmacist can provide more information about ondansetron. Remember, keep this and all other medicines out of the reach of children, never share your medicines with others, and use this medication only for the indication prescribed. Every effort has been made to ensure that the information provided by [employer] is accurate, up-to-date, and complete, but no guarantee is made to that effect. Drug information contained herein may be time sensitive. [employer] information has been compiled for use by healthcare practitioners and consumers in the [place] and therefore [employer] does not warrant that uses outside of the [place] are appropriate, unless specifically indicated otherwise. [employer] drug information does not endorse drugs, diagnose patients or recommend therapy. [employer] drug information is an informational resource designed to assist licensed healthcare practitioners in caring for their patients and/or to serve consumers viewing this service as a supplement to, and not a substitute for, the expertise, skill, knowledge and judgment of healthcare practitioners. The absence of a warning for a given drug or drug combination in no way should be construed to indicate that the drug or drug combination is safe, effective or appropriate for any given patient. [employer] does not assume any responsibility for any aspect of healthcare administered with the aid of information [employer] provides. The information contained herein is not intended to cover all possible uses, directions, precautions, warnings, drug interactions, allergic reactions, or adverse effects. If you have questions about the drugs you are taking, check with your doctor, nurse or pharmacist. Copyright [id number] [employer]. Version: 16.. Revision Date: 04/21/2023. cephalexin (sef a CHARLES in) What is the most important information I should know about cephalexin? You should not use this medicine if you are allergic to cephalexin or to similar antibiotics, such as Ceftin, Cefzil, Omnicef, and others. Tell your doctor if you are allergic to any drugs, especially penicillins or other antibiotics. What is cephalexin? Cephalexin is a cephalosporin (SEF a low spor in) antibiotic that is used to treat bacterial infections of the lungs, ear, skin, bones, bladder, and kidneys. Cephalexin is used to treat infections in adults and children who are at least 1 year old. Cephalexin may also be used for purposes not listed in this medication guide. What should I discuss with my healthcare provider before taking cephalexin? You should not use this medicine if you are allergic to cephalexin or any other cephalosporin antibiotic (cefdinir, cefadroxil, cefoxitin, cefprozil, ceftriaxone, cefuroxime, Omnicef, and others). Tell your doctor if you have ever had: an allergy to any drug (especially penicillin); liver or kidney disease; or intestinal problems, such as colitis. The liquid form of cephalexin may contain sugar. This may affect you if you have diabetes. Tell your doctor if you are or breast-feeding. How should I take cephalexin? Follow all directions on your prescription label and read all medication guides or instruction sheets. Use the medicine exactly as directed. Do not use cephalexin to treat any condition that has not been checked by your doctor. Measure liquid medicine carefully. Use the dosing syringe provided, or use a medicine dose-measuring device (not a kitchen spoon). Use this medicine for the full prescribed length of time, even if your symptoms quickly improve. Skipping doses can increase your risk of infection that is resistant to medication. Cephalexin will not treat a viral infection such as the flu or a common cold. Do not share cephalexin with another person, even if they have the same symptoms you have. This medicine can affect the results of certain medical tests. Tell any doctor who treats you that you are using cephalexin. Store the tablets and capsules at room temperature away from moisture, heat, and light. Store the liquid medicine in the refrigerator. Throw away any unused liquid after 14 days. What happens if I miss a dose? Take the medicine as soon as you can, but skip the missed dose if it is almost time for your next dose. Do not take two doses at one time. What happens if I overdose? Seek emergency medical attention or call the Poison Help line at . Overdose symptoms may include nausea, vomiting, stomach pain, diarrhea, and blood in your urine. What should I avoid while taking cephalexin? Antibiotic medicines can cause diarrhea, which may be a sign of a new infection. If you have diarrhea that is watery or bloody, call your doctor before using anti-diarrhea medicine. What are the possible side effects of cephalexin? Get emergency medical help if you have signs of an allergic reaction (hives, difficult breathing, swelling in your face or throat) or a severe skin reaction (fever, sore throat, burning eyes, skin pain, red or purple skin rash with blistering and peeling). Call your doctor at once if you have: severe stomach pain, diarrhea that is watery or bloody (even if it occurs months after your last dose); unusual tiredness, feeling light-headed or short of breath; easy bruising, unusual bleeding, purple or red spots under your skin; a seizure; pale skin, cold hands and feet; yellowed skin, dark colored urine; fever, weakness; or pain in your side or lower back, painful urination. Common side effects may include: diarrhea; nausea, vomiting; indigestion, stomach pain; or vaginal itching or discharge. This is not a complete list of side effects and others may occur. Call your doctor for medical advice about side effects. You may report side effects to FDA at 0-649-JZW-8623. What other drugs will affect cephalexin? Tell your doctor about all your other medicines, especially: metformin; or probenecid. This list is not complete. Other drugs may affect cephalexin, including prescription and vvlu-fht-ondruur medicines, vitamins, and herbal products. Not all possible drug interactions are listed here. Where can I get more information? Your pharmacist can provide more information about cephalexin. Remember, keep this and all other medicines out of the reach of children, never share your medicines with others, and use this medication only for the indication prescribed. Every effort has been made to ensure that the information provided by [employer] is accurate, up-to-date, and complete, but no guarantee is made to that effect. Drug information contained herein may be time sensitive. [employer] information has been compiled for use by healthcare practitioners and consumers in the [place] and therefore [employer] does not warrant that uses outside of the [place] are appropriate, unless specifically indicated otherwise. [employer] drug information does not endorse drugs, diagnose patients or recommend therapy. [employer] drug information is an informational resource designed to assist licensed healthcare practitioners in caring for their patients and/or to serve consumers viewing this service as a supplement to, and not a substitute for, the expertise, skill, knowledge and judgment of healthcare practitioners. The absence of a warning for a given drug or drug combination in no way should be construed to indicate that the drug or drug combination is safe, effective or appropriate for any given patient. [employer] does not assume any responsibility for any aspect of healthcare administered with the aid of information [facility] provides. The information contained herein is not intended to cover all possible uses, directions, precautions, warnings, drug interactions, allergic reactions, or adverse effects. If you have questions about the drugs you are taking, check with your doctor, nurse or pharmacist. Copyright [id number] [employer]. Version: 12.. Revision Date: 04/20/2023. acetaminophen and hydrocodone (a SEET a MIN oh fen and bony droale KOE done) Lortab Elixir, Verdrocet What is the most important information I should know about acetaminophen and hydrocodone? MISUSE OF OPIOID MEDICINE CAN CAUSE ADDICTION, OVERDOSE, OR . Keep the medication in a place where others cannot get to it. Taking opioid medicine during may cause life-threatening withdrawal symptoms in the . Fatal side effects can occur if you use opioid medicine with alcohol, or with other drugs that cause drowsiness or slow your breathing. Stop taking this medicine and call your doctor right away if you have skin redness or a rash that spreads and causes blistering and peeling. What is acetaminophen and hydrocodone? Acetaminophen and hydrocodone is a combination medicine used to relieve moderate to severe pain. Acetaminophen and hydrocodone contains an opioid medicine, and may be habit-forming. Acetaminophen and hydrocodone may also be used for purposes not listed in this medication guide. What should I discuss with my healthcare provider before taking acetaminophen and hydrocodone? You should not use this medicine if you are allergic to acetaminophen or hydrocodone, or if you have: severe asthma or breathing problems; or a blockage in your stomach or intestines. Tell your doctor if you have ever had: breathing problems, sleep apnea (breathing stops during sleep); liver disease; a drug or alcohol addiction; kidney disease; a head injury or seizures; urination problems; or problems with your thyroid, pancreas, or gallbladder. If you use opioid medicine while you are , your baby could become dependent on the drug. This can cause life-threatening withdrawal symptoms in the baby after it is born. Babies born dependent on opioids may need medical treatment for several weeks. Ask a doctor before using opioid medicine if you are . Tell your doctor if you notice severe drowsiness or slow breathing in the nursing baby. How should I take acetaminophen and hydrocodone? Follow all directions on your prescription label. Never take this medicine in larger amounts, or for longer than prescribed. An overdose can damage your liver or cause . Tell your doctor if you feel an increased urge to use more of this medicine. Never share this medicine with another person, especially someone with a history of drug abuse or addiction. MISUSE CAN CAUSE ADDICTION, OVERDOSE, OR . Keep the medicine in a place where others cannot get to it. Selling or giving away this medicine is against the law. Measure liquid medicine carefully. Use the dosing syringe provided, or use a medicine dose-measuring device (not a kitchen spoon). If you need surgery or medical tests, tell the doctor ahead of time that you are using this medicine. You should not stop using this medicine suddenly. Follow your doctor's instructions about tapering your dose. Store at room temperature away from moisture and heat. Keep track of your medicine. You should be aware if anyone is using it improperly or without a prescription. Do not keep leftover opioid medication. Just one dose can cause in someone using this medicine accidentally or improperly. Ask your pharmacist where to locate a drug take-back disposal program. If there is no take-back program, flush the unused medicine down the toilet. What happens if I miss a dose? Since this medicine is used for pain, you are not likely to miss a dose. Skip any missed dose if it is almost time for your next dose. Do not use two doses at one time. What happens if I overdose? Seek emergency medical attention or call the Poison Help line at . An overdose of this medicine can be fatal, especially in a child or other person using the medicine without a prescription. Overdose symptoms may include nausea, vomiting, sweating, severe drowsiness, pinpoint pupils, slow breathing, or no breathing. Your doctor may recommend you get naloxone (a medicine to reverse an opioid overdose) and keep it with you at all times. A person caring for you can give the naloxone if you stop breathing or don't wake up. Your caregiver must still get emergency medical help and may need to perform CPR (cardiopulmonary resuscitation) on you while waiting for help to arrive. Anyone can buy naloxone from a pharmacy or local health department. Make sure any person caring for you knows where you keep naloxone and how to use it. What should I avoid while taking acetaminophen and hydrocodone? Avoid driving or operating machinery until you know how this medicine will affect you. Dizziness or drowsiness can cause falls, accidents, or severe injuries. Do not drink alcohol. Dangerous side effects or could occur. Ask a doctor or pharmacist before using any other medicine that may contain acetaminophen (sometimes abbreviated as APAP). Taking certain medications together can lead to a fatal overdose. What are the possible side effects of acetaminophen and hydrocodone? Get emergency medical help if you have signs of an allergic reaction: hives; difficulty breathing; swelling of your face, lips, tongue, or throat. Opioid medicine can slow or stop your breathing, and may occur. A person caring for you should give naloxone and/or seek emergency medical attention if you have slow breathing with long pauses, blue colored lips, or if you are hard to wake up. In rare cases, acetaminophen may cause a severe skin reaction that can be fatal. This could occur even if you have taken acetaminophen in the past and had no reaction. Stop taking this medicine and call your doctor right away if you have skin redness or a rash that spreads and causes blistering and peeling. Call your doctor at once if you have: noisy breathing, sighing, shallow breathing, breathing that stops; a light-headed feeling, like you might pass out; liver problems--nausea, upper stomach pain, tiredness, loss of appetite, dark urine, shannan-colored stools, jaundice (yellowing of the skin or eyes); low cortisol levels-- nausea, vomiting, loss of appetite, dizziness, worsening tiredness or weakness; o high levels of serotonin in the body--agitation, hallucinations, fever, sweating, shivering, fast heart rate, muscle stiffness, twitching, loss of coordination, nausea, vomiting, diarrhea. Serious breathing problems may be more likely in older adults and in those who are debilitated or have wasting syndrome or chronic breathing disorders. Common side effects include: dizziness, drowsiness, feeling tired; nausea, vomiting, stomach pain; constipation; or headache. This is not a complete list of side effects and others may occur. Call your doctor for medical advice about side effects. You may report side effects to FDA at 2-240-RFM-4157. What other drugs will affect acetaminophen and hydrocodone? You may have breathing problems or withdrawal symptoms if you start or stop taking certain other medicines. Tell your doctor if you also use an antibiotic, antifungal medication, heart or blood pressure medication, seizure medication, or medicine to treat HIV or hepatitis C. Opioid medication can interact with many other drugs and cause dangerous side effects or . Be sure your doctor knows if you also use: cold or allergy medicines, bronchodilator asthma/COPD medication, or a diuretic ('water pill'); medicines for motion sickness, irritable bowel syndrome, or overactive bladder; other opioids--opioid pain medicine or prescription cough medicine; a sedative like Valium--diazepam, alprazolam, lorazepam, Xanax, Klonopin, Versed, and others; drugs that make you sleepy or slow your breathing--a sleeping pill, muscle relaxer, medicine to treat mood disorders or mental illness; drugs that affect serotonin levels in your body--a stimulant, or medicine for depression, Parkinson's disease, migraine headaches, serious infections, or nausea and vomiting. This list is not complete. Other drugs may affect acetaminophen and hydrocodone, including prescription and [id number] medicines, vitamins, and herbal products. Not all possible interactions are listed here. Where can I get more information? Your doctor or pharmacist can provide more information about acetaminophen and hydrocodone. Remember, keep this and all other medicines out of the reach of children, never share your medicines with others, and use this medication only for the indication prescribed. Every effort has been made to ensure that the information provided by [employer]. ('[employer]') is accurate, up-to-date, and complete, but no guarantee is made to that effect. Drug information contained herein may be time sensitive. [employer] information has been compiled for use by healthcare practitioners and consumers in the [place] and therefore [employer] does not warrant that uses outside of the [place] are appropriate, unless specifically indicated otherwise. [employer] drug information does not endorse drugs, diagnose patients or recommend therapy. [employer] drug information is an informational resource designed to assist licensed healthcare practitioners in caring for their patients and/or to serve consumers viewing this service as a supplement to, and not a substitute for, the expertise, skill, knowledge and judgment of healthcare practitioners. The absence of a warning for a given drug or drug combination in no way should be construed to indicate that the drug or drug combination is safe, effective or appropriate for any given patient. [employer] does not assume any responsibility for any aspect of healthcare administered with the aid of information [facility] provides. The information contained herein is not intended to cover all possible uses, directions, precautions, warnings, drug interactions, allergic reactions, or adverse effects. If you have questions about the drugs you are taking, check with your doctor, nurse or pharmacist. Copyright 1117-4116 [employer]. Version: 19.. Revision Date: 05/09/2023. Education Materials Urinary Tract Infections in Women Urinary tract infections (UTIs) are most often caused by bacteria. These bacteria enter the urinary tract. The bacteria may come from outside the body. Or they may travel from the skin outside the rectum or vagina into the urethra. Female anatomy makes it easy for bacteria from the bowel to enter a woman s urinary tract, which is the most common source of UTI. This means women develop UTIs more often than men. Pain in or around the urinary tract is a common UTI symptom. But the only way to know for sure if you have a UTI for the healthcare provider to test your urine. The two tests that may be done are the urinalysis and urine culture. Types of UTIs Cystitis. A bladder infection (cystitis) is the most common UTI in women. You may have urgent or frequent urination. You may also have pain, burning when you urinate, and bloody urine. Urethritis. This is an inflamed urethra, which is the tube that carries urine from the bladder to outside the body. You may have lower stomach or back pain. You may also have urgent or frequent urination. Pyelonephritis. This is a kidney infection. If not treated, it can be serious and damage your kidneys. In severe cases, you may need to stay in the hospital. You may have a fever and lower back pain. Medicines to treat a UTI Most UTIs are treated with antibiotics. These kill the bacteria. The length of time you need to take them depends on the type of infection. It may be as short as 3 days. If you have repeated UTIs, you may need a low-dose antibiotic for several months. Take antibiotics exactly as directed. Don t stop taking them until all of the medicine is gone. If you stop taking the antibiotic too soon, the infection may not go away. You may also develop a resistance to the antibiotic. This can make it much harder to treat. Lifestyle changes to treat and prevent UTIs The lifestyle changes below will help get rid of your UTI. They may also help prevent future UTIs. Drink plenty of fluids. This includes water, juice, or other caffeine-free drinks. Fluids help flush bacteria out of your body. Empty your bladder. Always empty your bladder when you feel the urge to urinate. And always urinate before going to sleep. Urine that stays in your bladder can lead to infection. Try to urinate before and after sex as well. Practice good personal hygiene. Wipe yourself from front to back after using the toilet. This helps keep bacteria from getting into the urethra. Use condoms during sex. These help prevent UTIs caused by sexually transmitted bacteria. Also don't use spermicides during sex. These can increase the risk for UTIs. Choose other forms of control instead. For women who tend to get UTIs after sex, a low-dose of a preventive antibiotic may be used. Be sure to discuss this option with your healthcare provider. Follow up with your healthcare provider as directed. He or she may test to make sure the infection has cleared. If needed, more treatment may be started. [id number] [employer]. [address] [place] [address]. All rights reserved. This information is not intended as a substitute for professional medical care. Always follow your healthcare professional's instructions. Pancreatitis The pancreas is an organ in the abdomen that secretes digestive juices into the stomach. Pancreatitis is an inflammation of the pancreas. In many cases, it is caused when the duct that connects the pancreas and gallbladder is blocked by a gallstone. Heavy alcohol use is another major cause. Less common causes can include medicines, trauma, certain medical procedures, viruses, and toxins. Sometimes the cause of pancreatitis cannot be found. Genetic testing is sometimes done in those cases, especially if there is a family history of pancreas disease. Symptoms of pancreatitis include: Severe abdominal pain Nausea and vomiting Severe indigestion Racing heart Fever If the pancreatitis becomes chronic, diarrhea, chronic pain, weight loss, and poor nutrition can result. At first, pancreatitis may be treated in the hospital. It may be diagnosed by history, exam, blood tests, and sometimes imaging studies. There, fluids and medicines can be provided. The underlying cause of the problem must also be treated to prevent further problems. If gallstones are the cause, you and your healthcare provider can discuss options for treating them. This usually results in gallbladder surgery. Sometimes another test must be done to clear the drainage ducts of a blocked gallstones. If alcohol is the cause, talk with your healthcare provider about a program to help you stop drinking. Home care Don't drink alcohol. Rest in bed or sit up in a chair until you feel better. Take medicines as prescribed. If you were given an antibiotic for infection, take it until it is gone, even if you feel better. Let your healthcare provider know if you vomit up your medicine. Tips for eating and drinking: If instructed, avoid eating or drinking until nausea and vomiting go away. Try sipping clear liquids to prevent dehydration. When you begin eating again, start with small amounts. Have small, more frequent meals rather than larger meals. Low fat meals are best. Follow-up care Follow up with your healthcare provider as advised. When to seek medical advice Call your healthcare provider right away for any of the following: Continued or worsening pain Repeated vomiting Dizziness, weakness Fever of 100.4 F (38 C) or higher, or as directed by your healthcare provider Severe muscle cramps Call 911 Call 911 if you have any of the following: Vomiting blood or large amounts of blood in stool Seizure Loss of consciousness [id number] [employer]. [address] [place] [address], [place] [address]. All rights reserved. This information is not intended as a substitute for professional medical care. Always follow your healthcare professional's instructions. Additional Information VACCINATE! IT SAVES LIVES! Members of the community who have not yet received the COVID-19 vaccine and would like to receive it can visit one of [facility] vaccine clinics. There are many vaccine clinic locations within the [facility]. For locations and available times, please visit [email or web address] . It is important to note that some COVID mobile vaccine clinics are held outdoors and may be canceled in rainy or stormy conditions. To learn more about pediatric vaccinations (ages 5-11), we invite you to visit the [facility] webpage. [email or web address] To learn more about the COVID-19 vaccine, we invite you to visit the CDC website for a list of frequently asked questions. https://www.cdc.gov/coronavirus/2019 -ncov/vaccines/faq.html [facility] Patient Portal Access Instructions: Stay connected with your healthcare team and access your personal medical information anytime with the [facility] Patient Portal. If you would like a full copy of your medical records please contact the [facility] Medical Records Department Tuesday through Tuesday between 8a.m. and 4:30p.m. Please follow the directions below to access the portal: 1.Access the email account you provided upon registration to the [facility].2.Look for an invitation email from [facility].3.Open the email and access the invitation link: Accept Invitation to [facility]4.Fill in the required azul to create your account. Sign into [email or web address] with your username and password that you created in the above steps to stay up to date. You can then view a summary of results, a summary of your visits, and the ability to download your summaries to your computer or send the information securely to a physician. Remember that your healthcare information is confidential, so carefully consider who you will allow to register on the [facility] Patient Portal for access to your information. You can also access the [facility] Patient Portal on the [employer] leslie. Simply click on Health Records under Health Data and then click on the [facility] logo. HOW TO SAFELY DISPOSE OF PRESCRIPTION MEDICATIONS Please use one of the following methods to safely dispose of your unused medications. 1.Use a drug disposal kit: the drug disposal pouch allows you to safely discard your old and unused drugs. Ask your nurse to give you one when you are discharged.2.Visit a local take-back location: Many local pharmacies and police departments have programs that collect old and unwanted prescription drugs. Call your local pharmacy or go to http://[employer].CMGE/9K2To5o to find one close to you.3.Make use of household items: Use cat litter or old coffee grounds to dispose medications if other options are not available. Mix your drugs with these household products, seal them in an airtight container and throw it into the garbage. Call [facility]: [phone] to be sure your drugs can be disposed of in this way. Some medicines may require a different approach.4.Never flush your medications down the toilet. IF YOU HAVE BEEN PRESCRIBED AN OPIOIDS FOR PAIN If you have been prescribed an opioid (such as hydrocodone, oxycodone or morphine), it is critical to understand the possible side effects and risks of opioid pain medications. Even when taken as directed, opioids can have several side effects including: Tolerance, meaning you might need to take more of a medication for the same pain relief. Nausea, vomiting and/or constipation. Sleepiness, dizziness, dry mouth, confusion, depression or itching. Physical dependence, meaning you have withdrawal symptoms when a medication is stopped ? this can develop within a few days. KNOW YOUR RESPONSIBILITIES It is important to know exactly how much and how often to take the opioid pain medications you are prescribed. Never take opioids in higher amounts or more often than prescribed. Do not combine opioids with alcohol or other drugs that cause drowsiness, such as benzodiazepines, also known as benzos, including diazepam and alprazolam, muscle relaxants or sleep aids. Never sell or share prescription opioids. This is illegal. Store opioids in a secure place and out of reach of others (including children, family, friends and visitors). The last page(s) of this document has been signed and retained as a CHART COPY Signatures Patient Education Materials Urinary Tract Infections in Women Pancreatitis Medication Leaflets ondansetron (oral), cephalexin, acetaminophen and hydrocodone My discharge plan and instructions have been reviewed and explained to me and MATY Kirkland AMANDA M understand my current condition and have read and u (more content not included)... [facility] 05-10-2023 Miscellaneous Notes The following approved medication requests have been transmitted electronically. Requested Prescriptions Signed Prescriptions Disp Refills lacosamide (VIMPAT) 100 mg tab 270 tablet 1 Si tab in am and 2 tabs in pm Authorizing Provider: ALAINA TOMLIN APRN.CNP Prescription Refill: Requested by: patient Please E-Scribe Caller Contact Number: Pharmacy Name: [facility] Number: [phone] Generic/ brand: Generic 30 or 90 day supply requested: 90 Last appointment: 11/20/21 Next Appointment: 06/14/[address] Aldrich documented in this encounter [facility] 05-09-2023 Hospital Discharge instructions Patient Education 05/09/2023 10:03:45 Pancreatitis Pancreatitis The pancreas is an organ in the abdomen that secretes digestive juices into the stomach. Pancreatitis is an inflammation of the pancreas. In many cases, it is caused when the duct that connects the pancreas and gallbladder is blocked by a gallstone. Heavy alcohol use is another major cause. Less common causes can include medicines, trauma, certain medical procedures, viruses, and toxins. Sometimes the cause of pancreatitis cannot be found. Genetic testing is sometimes done in those cases, especially if there is a family history of pancreas disease. Symptoms of pancreatitis include: Severe abdominal pain Nausea and vomiting Severe indigestion Racing heart Fever If the pancreatitis becomes chronic, diarrhea, chronic pain, weight loss, and poor nutrition can result. At first, pancreatitis may be treated in the hospital. It may be diagnosed by history, exam, blood tests, and sometimes imaging studies. There, fluids and medicines can be provided. The underlying cause of the problem must also be treated to prevent further problems. If gallstones are the cause, you and your healthcare provider can discuss options for treating them. This usually results in gallbladder surgery. Sometimes another test must be done to clear the drainage ducts of a blocked gallstones. If alcohol is the cause, talk with your healthcare provider about a program to help you stop drinking. Home care Don't drink alcohol. Rest in bed or sit up in a chair until you feel better. Take medicines as prescribed. If you were given an antibiotic for infection, take it until it is gone, even if you feel better. Let your healthcare provider know if you vomit up your medicine. Tips for eating and drinking: If instructed, avoid eating or drinking until nausea and vomiting go away. Try sipping clear liquids to prevent dehydration. When you begin eating again, start with small amounts. Have small, more frequent meals rather than larger meals. Low fat meals are best. Follow-up care Follow up with your healthcare provider as advised. When to seek medical advice Call your healthcare provider right away for any of the following: Continued or worsening pain Repeated vomiting Dizziness, weakness Fever of 100.4 F (38 C) or higher, or as directed by your healthcare provider Severe muscle cramps Call 911 Call 911 if you have any of the following: Vomiting blood or large amounts of blood in stool Seizure Loss of consciousness [phone] [employer]. [address] [place] [address]. All rights reserved. This information is not intended as a substitute for professional medical care. Always follow your healthcare professional's instructions. Follow Up Care 05/09/2023 08:08:20 With:[facility] Address: When:2-4 days With:Go to emergency room if symptoms worsen Address:Unknown When:2-4 days [facility] 05-09-2023 Note Discharge Instructions Thank you for allowing [facility] to assist you with your healthcare needs. The following is important discharge information regarding your hospital visit. Diagnosis from Today's Visit Medical screening exam Pancreatitis What to Do Next Instructions from Your Care Team Clear liquid diet. Advance as tolerated. No qualifying data available. Post Acute Orders No qualifying data available. You Need to Schedule the Following Appointments Follow Up with [facility] When Within 2-4 days Where: Follow Up with Go to emergency room if symptoms worsen When Within 2-4 days Allergies penicillin (Rash) Neurontin (Vomiting) sulfa drug Medications Please ask your primary doctor or pharmacist before taking any other medication not listed, including over the counter drugs, herbal medications, vitamins and or supplements as they may interact with your home medications. What How Much When Why Instructions Last Dose Changed acetaminophen-oxyCODONE (acetaminophen-oxyCODONE 325 mg-5 mg oral tablet) 2 tab(s) by mouth Every 6 hours as needed for for pain Changed acetaminophen-oxyCODONE (Percocet 5 mg-325 mg oral tablet) 1 tab(s) by mouth Every 6 hours Pancreatitis Duration: 3 Days Printed Prescription Changed ondansetron (ondansetron 8 mg oral tablet, disintegrating) 1 tab(s) by mouth Three (3) times a day as needed for Nausea Changed ondansetron (Zofran 4 mg oral tablet) 1 tab(s) by mouth Every 8 hours Printed Prescription Unchanged APAP/ butalbital/ caffeine (APAP/ butalbital/ caffeine 325-50-40 mg oral tablet (Fioricet)) 1 tab(s) by mouth Every 4 hours as needed for as needed in absence of pcp Unchanged ARIPiprazole (ARIPiprazole 10 mg oral tablet) 1 tab(s) by mouth Once a day Unchanged ascorbic acid (Vitamin C 1000 mg oral tablet) 1 tab(s) by mouth Once a day Unchanged cholecalciferol (cholecalciferol 1250 mcg (50,000 intl units) oral capsule) 1 cap by mouth Every Tuesday Duration: 90 Days Unchanged clonazePAM (clonazePAM 0.5 mg oral tablet) 1 tab(s) by mouth Once a day as needed for Anxiety Unchanged cloNIDine (cloNIDine 0.2 mg oral tablet) 1 tab(s) by mouth Once a day Duration: 90 Days Unchanged dicyclomine (dicyclomine 10 mg oral capsule) 1 cap by mouth Four (4) times a day Duration: 10 Days Unchanged fenofibrate (fenofibrate 145 mg oral tablet) 1 tab(s) by mouth Once a day Unchanged furosemide (furosemide 40 mg oral tablet) 1 tab(s) by mouth Once a day Duration: 90 Days Unchanged hydroCHLOROthiazide (hydroCHLOROthiazide 25 mg oral tablet) 1 tab(s) by mouth Once a day Unchanged lacosamide (lacosamide 100 mg oral tablet) 1 tab(s) by mouth Once a day (in the morning) Unchanged lacosamide (lacosamide 100 mg oral tablet) 2 tab(s) by mouth Once a day (in the evening) Unchanged lactulose (lactulose 10 g/ 15 mL oral syrup) 15 Milliliter by mouth Two (2) times a day as needed for as needed for constipation Unchanged linaclotide (Linzess 290 mcg oral capsule) 1 cap by mouth Once a day Duration: 90 Days Unchanged magnesium salicylate (magnesium salicylate 600 mg oral tablet) 1 tab(s) by mouth Every 4 hours Unchanged methenamine (methenamine hippurate 1 g oral tablet) 1 tab(s) by mouth Once a day Duration: 90 Days Unchanged metoprolol (metoprolol succinate 25 mg oral TABLET extended release) 1 tab(s) by mouth Once a day Duration: 30 Days Unchanged mirtazapine (mirtazapine 7.5 mg oral tablet) 1 tab(s) by mouth Daily at bedtime Unchanged naloxone (naloxone 4 mg/ 0.1 mL nasal spray) 1 spray(s) Intranasal As Directed as needed for see pharmacy notes may repeat every 2 to 3 minutes until patient responds Unchanged nitrofurantoin (Macrobid 100 mg oral capsule) 1 cap by mouth Once a day as needed for Symptoms of urinary discomfort Take with food Unchanged nortriptyline (nortriptyline 25 mg oral capsule) 1 cap by mouth Three (3) times a day Unchanged omeprazole (omeprazole 40 mg oral delayed release capsule) 1 cap by mouth Two (2) times a day Duration: 90 Days Unchanged oxyCODONE (oxyCODONE 5 mg oral tablet ( IMMEDIATE release )) 2 tab(s) by mouth Every 6 hours as needed for for pain Unchanged pancrelipase (Creon 12,000 units oral delayed release capsule) 1 cap by mouth Three (3) times a day Unchanged pancrelipase (Creon 36,000 units oral delayed release capsule) 1 cap by mouth Four (4) times a day Unchanged potassium chloride (potassium chloride 20 mEq oral tablet, extended release) 1 tab(s) by mouth Three (3) times a day Duration: 90 Days Unchanged promethazine (promethazine 25 mg oral tablet) 1 tab(s) by mouth Every 6 hours as needed for for nausea/vomiting Unchanged promethazine (promethazine 25 mg oral tablet) 1 tab(s) by mouth Two (2) times a day Duration: 14 Days Unchanged rivaroxaban (Xarelto 10 mg oral tablet) 1 tab(s) by mouth Once a day Duration: 90 Days Unchanged rOPINIRole (rOPINIRole 0.5 mg oral tablet) 1 tab(s) by mouth Two (2) times a day Duration: 90 Days Unchanged valACYclovir (valACYclovir 500 mg oral tablet) 1 tab(s) by mouth Once a day Duration: 90 Days Unchanged venlafaxine (venlafaxine 150 mg oral capsule, extended release) 1 cap by mouth Once a day Duration: 90 Days for a total of 225 mg/ day. Unchanged venlafaxine (venlafaxine 75 mg oral capsule, extended release) 1 cap by mouth Once a day Duration: 90 Days for a total of 225 mg/ day. Please take this list to your next doctor s visit. Bring all medications you take, including over the counter medications, herbals and other supplements with you to your doctor s visit. Patients and families are reminded to discard old lists and to update any records with all medication providers or retail pharmacies. Medication Leaflets acetaminophen and oxycodone (a SEET a MIN oh fen and OX i BETZY done) Endocet 10/325, Endocet 2.5/325, Endocet 5/325, Endocet 7.5/325, Nalocet, Percocet, Prolate What is the most important information I should know about acetaminophen and oxycodone? MISUSE OF OPIOID MEDICINE CAN CAUSE ADDICTION, OVERDOSE, OR . Keep the medication in a place where others cannot get to it. Taking opioid medicine during may cause life-threatening withdrawal symptoms in the . Fatal side effects can occur if you use opioid medicine with alcohol, or with other drugs that cause drowsiness or slow your breathing. Stop taking this medicine and call your doctor right away if you have skin redness or a rash that spreads and causes blistering and peeling. What is acetaminophen and oxycodone? Acetaminophen and oxycodone is a combination medicine used to relieve moderate to severe pain. Acetaminophen and oxycodone contains an opioide medicine and may be habit-forming. Acetaminophen and oxycodone may also be used for purposes not listed in this medication guide. What should I discuss with my healthcare provider before taking acetaminophen and oxycodone? You should not use this medicine if you are allergic to acetaminophen or oxycodone, or if you have: severe asthma or breathing problems; or a blockage in your stomach or intestines. Tell your doctor if you have ever had: breathing problems, sleep apnea; liver disease; a drug or alcohol addiction; kidney disease; a head injury or seizures; urination problems; or problems with your thyroid, pancreas, or gallbladder. If you use opioid medicine while you are , your baby could become dependent on the drug. This can cause life-threatening withdrawal symptoms in the baby after it is born. Babies born dependent on opioids may need medical treatment for several weeks. Ask a doctor before using opioid medicine if you are . Tell your doctor if you notice severe drowsiness or slow breathing in the nursing baby. How should I take acetaminophen and oxycodone? Follow all directions on your prescription label. Never take this medicine in larger amounts, or for longer than prescribed. An overdose can damage your liver or cause . Tell your doctor if you feel an increased urge to use more of this medicine. Never share opioid medicine with another person, especially someone with a history of drug abuse or addiction. MISUSE CAN CAUSE ADDICTION, OVERDOSE, OR . Keep the medicine in a place where others cannot get to it. Selling or giving away opioid medicine is against the law. Measure liquid medicine carefully. Use the dosing syringe provided, or use a medicine dose-measuring device (not a kitchen spoon). If you need surgery or medical tests, tell the doctor ahead of time that you are using this medicine. You should not stop using this medicine suddenly. Follow your doctor's instructions about tapering your dose. Store at room temperature away from moisture and heat. Keep track of your medicine. You should be aware if anyone is using it improperly or without a prescription. Do not keep leftover opioid medication. Just one dose can cause in someone using this medicine accidentally or improperly. Ask your pharmacist where to locate a drug take-back disposal program. If there is no take-back program, flush the unused medicine down the toilet. What happens if I miss a dose? Since this medicine is used for pain, you are not likely to miss a dose. Skip any missed dose if it is almost time for your next dose. Do not use two doses at one time. What happens if I overdose? Seek emergency medical attention or call the Poison Help line at . An overdose of this medicine can be fatal, especially in a child or other person using the medicine without a prescription. Overdose symptoms may include nausea, vomiting, sweating, severe drowsiness, pinpoint pupils, slow breathing, or no breathing. Your doctor may recommend you get naloxone (a medicine to reverse an opioid overdose) and keep it with you at all times. A person caring for you can give the naloxone if you stop breathing or don't wake up. Your caregiver must still get emergency medical help and may need to perform CPR (cardiopulmonary resuscitation) on you while waiting for help to arrive. Anyone can buy naloxone from a pharmacy or local health department. Make sure any person caring for you knows where you keep naloxone and how to use it. What should I avoid while taking acetaminophen and oxycodone? Avoid driving or operating machinery until you know how this medicine will affect you. Dizziness or drowsiness can cause falls, accidents, or severe injuries. Do not drink alcohol. Dangerous side effects or could occur. Ask a doctor or pharmacist before using any other medicine that may contain acetaminophen (sometimes abbreviated as APAP). Taking certain medications together can lead to a fatal overdose. What are the possible side effects of acetaminophen and oxycodone? Get emergency medical help if you have signs of an allergic reaction: hives; difficulty breathing; swelling of your face, lips, tongue, or throat. Opioid medicine can slow or stop your breathing, and may occur. A person caring for you should give naloxone and/or seek emergency medical attention if you have slow breathing with long pauses, blue colored lips, or if you are hard to wake up. In rare cases, acetaminophen may cause a severe skin reaction that can be fatal. This could occur even if you have taken acetaminophen in the past and had no reaction. Stop taking this medicine and call your doctor right away if you have skin redness or a rash that spreads and causes blistering and peeling. Call your doctor at once if you have: noisy breathing, sighing, shallow breathing, breathing that stops; a light-headed feeling, like you might pass out; weakness, tiredness, fever, unusual bruising or bleeding; confusion, unusual thoughts or behavior; problems with urination; liver problems--nausea, upper stomach pain, tiredness, loss of appetite, dark urine, shannan-colored stools, jaundice (yellowing of the skin or eyes); low cortisol levels-- nausea, vomiting, loss of appetite, dizziness, worsening tiredness or weakness; or high levels of serotonin in the body--agitation, hallucinations, fever, sweating, shivering, fast heart rate, muscle stiffness, twitching, loss of coordination, nausea, vomiting, diarrhea. Serious breathing problems may be more likely in older adults and in those who are debilitated or have wasting syndrome or chronic breathing disorders. Common side effects include: dizziness, drowsiness, feeling tired; feelings of extreme happiness or sadness; nausea, vomiting, stomach pain; constipation; or headache. This is not a complete list of side effects and others may occur. Call your doctor for medical advice about side effects. You may report side effects to FDA at 0-128-JON-0337. What other drugs will affect acetaminophen and oxycodone? You may have breathing problems or withdrawal symptoms if you start or stop taking certain other medicines. Tell your doctor if you also use an antibiotic, antifungal medication, heart or blood pressure medication, seizure medication, or medicine to treat HIV or hepatitis C. Opioid medication can interact with many other drugs and cause dangerous side effects or . Be sure your doctor knows if you also use: cold or allergy medicines, bronchodilator asthma/COPD medication, or a diuretic ('water pill'); medicines for motion sickness, irritable bowel syndrome, or overactive bladder; other opioids--opioid pain medicine or prescription cough medicine; a sedative like Valium--diazepam, alprazolam, lorazepam, Xanax, Klonopin, Versed, and others; drugs that make you sleepy or slow your breathing--a sleeping pill, muscle relaxer, medicine to treat mood disorders or mental illness; drugs that affect serotonin levels in your body--a stimulant, or medicine for depression, Parkinson's disease, migraine headaches, serious infections, or nausea and vomiting. This list is not complete. Other drugs may affect acetaminophen and oxycodone, including prescription and [id number]-fkk-mngshak medicines, vitamins, and herbal products. Not all possible interactions are listed here. Where can I get more information? Your doctor or pharmacist can provide more information about acetaminophen and oxycodone. Remember, keep this and all other medicines out of the reach of children, never share your medicines with others, and use this medication only for the indication prescribed. Every effort has been made to ensure that the information provided by [employer] is accurate, up-to-date, and complete, but no guarantee is made to that effect. Drug information contained herein may be time sensitive. [employer] information has been compiled for use by healthcare practitioners and consumers in the [place] and therefore [employer] does not warrant that uses outside of the [place] are appropriate, unless specifically indicated otherwise. [employer]'s drug information does not endorse drugs, diagnose patients or recommend therapy. [employer] drug information is an informational resource designed to assist licensed healthcare practitioners in caring for their patients and/or to serve consumers viewing this service as a supplement to, and not a substitute for, the expertise, skill, knowledge and judgment of healthcare practitioners. The absence of a warning for a given drug or drug combination in no way should be construed to indicate that the drug or drug combination is safe, effective or appropriate for any given patient. [facility] does not assume any responsibility for any aspect of healthcare administered with the aid of information [facility] provides. The information contained herein is not intended to cover all possible uses, directions, precautions, warnings, drug interactions, allergic reactions, or adverse effects. If you have questions about the drugs you are taking, check with your doctor, nurse or pharmacist. Copyright 5672-1599 [facility] [employer]. Version: 22.01. Revision Date: 04/21/2023. ondansetron (oral) (on BENJI se sean) What is the most important information I should know about ondansetron? You should not use ondansetron if you are also using apomorphine (Apokyn). What is ondansetron? Ondansetron blocks the actions of chemicals in the body that can trigger nausea and vomiting. Ondansetron is used to prevent nausea and vomiting that may be caused by surgery, cancer chemotherapy, or radiation treatment. Ondansetron may be used for purposes not listed in this medication guide. What should I discuss with my health care provider before taking ondansetron? You should not use ondansetron if: you are also using apomorphine (Apokyn); or you are allergic to ondansetron or similar medicines (dolasetron, granisetron, palonosetron). To make sure ondansetron is safe for you, tell your doctor if you have: liver disease; an electrolyte imbalance (such as low levels of potassium or magnesium in your blood); congestive heart failure, slow heartbeats; a personal or family history of long QT syndrome; or a blockage in your digestive tract (stomach or intestines). Ondansetron is not expected to harm an unborn baby. Tell your doctor if you are . It is not known whether ondansetron passes into breast milk or if it could harm a nursing baby. Tell your doctor if you are breast-feeding a baby. Ondansetron is not approved for use by anyone younger than 4 years old. Ondansetron orally disintegrating tablets may contain phenylalanine. Tell your doctor if you have phenylketonuria (PKU). How should I take ondansetron? Follow all directions on your prescription label. Do not take this medicine in larger or smaller amounts or for longer than recommended. Ondansetron can be taken with or without food. The first dose of ondansetron is usually taken before the start of your surgery, chemotherapy, or radiation treatment. Follow your doctor's dosing instructions very carefully. Take the ondansetron regular tablet with a full glass of water. To take the orally disintegrating tablet (Zofran ODT): Keep the tablet in its blister pack until you are ready to take it. Open the package and peel back the foil. Do not push a tablet through the foil or you may damage the tablet. Use dry hands to remove the tablet and place it in your mouth. Do not swallow the tablet whole. Allow it to dissolve in your mouth without chewing. Swallow several times as the tablet dissolves. To use ondansetron oral soluble film (strip) ([employer]): Keep the strip in the foil pouch until you are ready to use the medicine. Using dry hands, remove the strip and place it on your tongue. It will begin to dissolve right away. Do not swallow the strip whole. Allow it to dissolve in your mouth without chewing. Swallow several times after the strip dissolves. If desired, you may drink liquid to help swallow the dissolved strip. Wash your hands after using [employer]. Measure liquid medicine with the dosing syringe provided, or with a special dose-measuring spoon or medicine cup. If you do not have a dose-measuring device, ask your pharmacist for one. Store at room temperature away from moisture, heat, and light. Store liquid medicine in an upright position. What happens if I miss a dose? Take the missed dose as soon as you remember. Skip the missed dose if it is almost time for your next scheduled dose. Do not take extra medicine to make up the missed dose. What happens if I overdose? Seek emergency medical attention or call the Poison Help line at . Overdose symptoms may include sudden loss of vision, severe constipation, feeling light-headed, or fainting. What should I avoid while taking ondansetron? Ondansetron may impair your thinking or reactions. Be careful if you drive or do anything that requires you to be alert. What are the possible side effects of ondansetron? Get emergency medical help if you have signs of an allergic reaction: rash, hives; fever, chills, difficult breathing; swelling of your face, lips, tongue, or throat. Call your doctor at once if you have: severe constipation, stomach pain, or bloating; headache with chest pain and severe dizziness, fainting, fast or pounding heartbeats; fast or pounding heartbeats; jaundice (yellowing of the skin or eyes); blurred vision or temporary vision loss (lasting from only a few minutes to several hours); high levels of serotonin in the body--agitation, hallucinations, fever, fast heart rate, overactive reflexes, nausea, vomiting, diarrhea, loss of coordination, fainting. Common side effects may include: diarrhea or constipation; headache; drowsiness; or tired feeling. This is not a complete list of side effects and others may occur. Call your doctor for medical advice about side effects. You may report side effects to FDA at 4-653-DGK-3346. What other drugs will affect ondansetron? Ondansetron can cause a serious heart problem, especially if you use certain medicines at the same time, including antibiotics, antidepressants, heart rhythm medicine, antipsychotic medicines, and medicines to treat cancer, malaria, HIV or AIDS. Tell your doctor about all medicines you use, and those you start or stop using during your treatment with ondansetron. Taking ondansetron while you are using certain other medicines can cause high levels of serotonin to build up in your body, a condition called 'serotonin syndrome,' which can be fatal. Tell your doctor if you also use: medicine to treat depression; medicine to treat a psychiatric disorder; a narcotic (opioid) medication; or medicine to prevent nausea and vomiting. This list is not complete and many other drugs can interact with ondansetron. This includes prescription and nfnn-odl-gzdksyi medicines, vitamins, and herbal products. Give a list of all your medicines to any healthcare provider who treats you. Where can I get more information? Your pharmacist can provide more information about ondansetron. Remember, keep this and all other medicines out of the reach of children, never share your medicines with others, and use this medication only for the indication prescribed. Every effort has been made to ensure that the information provided by [employer] is accurate, up-to-date, and complete, but no guarantee is made to that effect. Drug information contained herein may be time sensitive. [employer] information has been compiled for use by healthcare practitioners and consumers in the [place] and therefore [employer] does not warrant that uses outside of the [place] are appropriate, unless specifically indicated otherwise. [employer] drug information does not endorse drugs, diagnose patients or recommend therapy. [employer] drug information is an informational resource designed to assist licensed healthcare practitioners in caring for their patients and/or to serve consumers viewing this service as a supplement to, and not a substitute for, the expertise, skill, knowledge and judgment of healthcare practitioners. The absence of a warning for a given drug or drug combination in no way should be construed to indicate that the drug or drug combination is safe, effective or appropriate for any given patient. [employer] does not assume any responsibility for any aspect of healthcare administered with the aid of information [employer] provides. The information contained herein is not intended to cover all possible uses, directions, precautions, warnings, drug interactions, allergic reactions, or adverse effects. If you have questions about the drugs you are taking, check with your doctor, nurse or pharmacist. Copyright 7173-6371 [facility] [employer] [facility]. Version: 16.. Revision Date: 04/21/2023. Education Materials Pancreatitis The pancreas is an organ in the abdomen that secretes digestive juices into the stomach. Pancreatitis is an inflammation of the pancreas. In many cases, it is caused when the duct that connects the pancreas and gallbladder is blocked by a gallstone. Heavy alcohol use is another major cause. Less common causes can include medicines, trauma, certain medical procedures, viruses, and toxins. Sometimes the cause of pancreatitis cannot be found. Genetic testing is sometimes done in those cases, especially if there is a family history of pancreas disease. Symptoms of pancreatitis include: Severe abdominal pain Nausea and vomiting Severe indigestion Racing heart Fever If the pancreatitis becomes chronic, diarrhea, chronic pain, weight loss, and poor nutrition can result. At first, pancreatitis may be treated in the hospital. It may be diagnosed by history, exam, blood tests, and sometimes imaging studies. There, fluids and medicines can be provided. The underlying cause of the problem must also be treated to prevent further problems. If gallstones are the cause, you and your healthcare provider can discuss options for treating them. This usually results in gallbladder surgery. Sometimes another test must be done to clear the drainage ducts of a blocked gallstones. If alcohol is the cause, talk with your healthcare provider about a program to help you stop drinking. Home care Don't drink alcohol. Rest in bed or sit up in a chair until you feel better. Take medicines as prescribed. If you were given an antibiotic for infection, take it until it is gone, even if you feel better. Let your healthcare provider know if you vomit up your medicine. Tips for eating and drinking: If instructed, avoid eating or drinking until nausea and vomiting go away. Try sipping clear liquids to prevent dehydration. When you begin eating again, start with small amounts. Have small, more frequent meals rather than larger meals. Low fat meals are best. Follow-up care Follow up with your healthcare provider as advised. When to seek medical advice Call your healthcare provider right away for any of the following: Continued or worsening pain Repeated vomiting Dizziness, weakness Fever of 100.4 F (38 C) or higher, or as directed by your healthcare provider Severe muscle cramps Call 911 Call 911 if you have any of the following: Vomiting blood or large amounts of blood in stool Seizure Loss of consciousness 9569-2184 [employer]. [address] [place] [address]. All rights reserved. This information is not intended as a substitute for professional medical care. Always follow your healthcare professional's instructions. Additional Information VACCINATE! IT SAVES LIVES! Members of the community who have not yet received the COVID-19 vaccine and would like to receive it can visit one of [facility] vaccine clinics. There are many vaccine clinic locations within the [facility]. For locations and available times, please visit [email or web address] . It is important to note that some COVID mobile vaccine clinics are held outdoors and may be canceled in rainy or stormy conditions. To learn more about pediatric vaccinations (ages 5-11), we invite you to visit the [facility] webpage. [email or web address]/pages [email or web address]-[email or web address] sked-Questions.html To learn more about the COVID-19 vaccine, we invite you to visit the CDC website for a list of frequently asked questions. https://www.cdc.gov/coronavirus/2019 -ncov/vaccines/faq.html [facility] Patient Portal Access Instructions: Stay connected with your healthcare team and access your personal medical information anytime with the [facility] Patient Portal. If you would like a full copy of your medical records please contact the [facility] Medical Records Department Tuesday through Tuesday between 8a.m. and 4:30p.m. Please follow the directions below to access the portal: 1.Access the email account you provided upon registration to the [facility].2.Look for an invitation email from [facility].3.Open the email and access the invitation link: Accept Invitation to [facility]4.Fill in the required azul to create your account. Sign into [email or web address] with your username and password that you created in the above steps to stay up to date. You can then view a summary of results, a summary of your visits, and the ability to download your summaries to your computer or send the information securely to a physician. Remember that your healthcare information is confidential, so carefully consider who you will allow to register on the [facility] Patient Portal for access to your information. You can also access the [facility] Patient Portal on the [employer]. Simply click on Health Records under Health Data and then click on the [employer] logo. HOW TO SAFELY DISPOSE OF PRESCRIPTION MEDICATIONS Please use one of the following methods to safely dispose of your unused medications. 1.Use a drug disposal kit: the drug disposal pouch allows you to safely discard your old and unused drugs. Ask your nurse to give you one when you are discharged.2.Visit a local take-back location: Many local pharmacies and police departments have programs that collect old and unwanted prescription drugs. Call your local pharmacy or go to http://[employer].CMGE/7F7Vr0p to find one close to you.3.Make use of household items: Use cat litter or old coffee grounds to dispose medications if other options are not available. Mix your drugs with these household products, seal them in an airtight container and throw it into the garbage. Call [facility]: [phone] to be sure your drugs can be disposed of in this way. Some medicines may require a different approach.4.Never flush your medications down the toilet. IF YOU HAVE BEEN PRESCRIBED AN OPIOIDS FOR PAIN If you have been prescribed an opioid (such as hydrocodone, oxycodone or morphine), it is critical to understand the possible side effects and risks of opioid pain medications. Even when taken as directed, opioids can have several side effects including: Tolerance, meaning you might need to take more of a medication for the same pain relief. Nausea, vomiting and/or constipation. Sleepiness, dizziness, dry mouth, confusion, depression or itching. Physical dependence, meaning you have withdrawal symptoms when a medication is stopped ? this can develop within a few days. KNOW YOUR RESPONSIBILITIES It is important to know exactly how much and how often to take the opioid pain medications you are prescribed. Never take opioids in higher amounts or more often than prescribed. Do not combine opioids with alcohol or other drugs that cause drowsiness, such as benzodiazepines, also known as benzos, including diazepam and alprazolam, muscle relaxants or sleep aids. Never sell or share prescription opioids. This is illegal. Store opioids in a secure place and out of reach of others (including children, family, friends and visitors). The last page(s) of this document has been signed and retained as a CHART COPY Signatures Patient Education Materials Pancreatitis Medication Leaflets acetaminophen and oxycodone, ondansetron (oral) My discharge plan and instructions have been reviewed and explained to me and IMATY AMANDA M understand my current condition and have read and understand these discharge instructions. I have received a written copy of the plan/instructions. If I have questions, I am aware that I should contact my doctor. 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 Requested Prescriptions Signed Prescriptions Disp Refills clonazePAM (KLONOPIN) 0.5 mg tablet 10 tablet 0 Sig: Take one tablet as needed for prolonged convulsive seizure or cluster or 3 or more seizures in 24 hours. Do not exceed more than 1 tablet per day. 10 tablets per 30 days. Authorizing Provider: ALAINA TOMLIN APRN.INVESTOR RELATIONS DIRECTOR Prescription Refill: Requested by: patient Please E-Scribe Caller Contact Number: [phone] (home) [facility] Number: [phone] Generic/ brand: generic 30 or 90 day supply requested: 90 Last appointment: 11/20/21 Next Appointment: 06/14/[address] aldrich documented in this encounter [facility] 04-30-2023 Emergency department Note Called [facility] to give Nurse to nurse report but was informed that the nurse already received report. Chart and records sent with driver wheelchair Caron Saucedo RN 04/30/23202 [facility] 04-30-2023 Emergency department Note Called [facility] to give Nurse to nurse report but was informed that the nurse already received report. Chart and records sent with driver wheelchair Caron Saucedo RN 04/30/23202 Pt arrived through [facility] ED with [facility]. This RN spoke with Gael VILLANUEVA coordinator at [facility] ED. Pt was en route to [facility] in [place] for psych admit. 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 [facility] dispatch advised to come to nearest ED. Pt arrived to triage in wheelchair with EMS, mumbling words, not making sense. Pt did verify name, , address once registered. This RN got report from Gael at [facility]- Pt had arrived today at [facility] for anxiety and depression, was pink slipped. Pt has had previous admissions for psychosis in past. Drug screen per RN in ED today was positive for opiates, PCP, marijuana. Pt has allergies to Penicillin, Neurontin, sulfa. [facility] was notifed of pt being brought to [facility] ED. Chayito Stated pt had left ED calm and cooperative. This RN called [facility] facility and spoke with Dianne VILLANUEVA. Bed is held for pt once cleared by [facility] ED. Will fax paperwork needed to [facility] prior to transport. Jennifer Hancock RN 04/29/23 2322 Jennifer Hancock RN 04/29/23 2333 Jennifer Hancock RN 04/29/23 2342 Jennifer Hancock RN 04/29/23 2348 Room cleared and made safe per protocol, protective services in ED for safety of patient and staff. Patient in gown already from transport. Belongings already bagged and brought in by air transport professionals, checked by [facility] protective services Caron Saucedo RN 04/29/23 1817 EMERGENCY DEPARTMENT ENCOUNTER Pt Name: Dorothea Rutledge Birthdate 1975 Date of evaluation: 04/29/2023 ED Provider: Lisbeth Davies DO CHIEF COMPLAINT Chief Complaint Patient presents with Psychiatric Evaluation Being transported from [facility] in [place] for behavioral, anxiety and depression. En route patient became aggressive and confused so the lumber stacker driver came here for emergency assistance. Word salad upon admission to this ED, unable to communicate clearly or answers questions. Denies etoh or drug use at this time. Random words being continuously spoken. HISTORY OF PRESENT ILLNESS (Location/Symptom, Timing/Onset, Context/Setting, Quality, Duration, Modifying Factors, Severity) Note limiting factors. I wore appropriate PPE for the entirety of this encounter. HPI Dorothea Rutledge is a 47 y.o. female who presents to the emergency department with chief complaint of agitation. Patient was initially at [facility], seen for similar agitation and acting bizarrely. Patient was medically cleared and plan to admit to [facility] in [place]. In route from [facility] patient was initially calm and cooperative however became agitated and was reaching through the screen in the ambulance and acting erratically. Diverted to our facility for evaluation. Per EMS there were no falls, head injury or trauma. Patient did not have access to her clothing or any medications in route. On my evaluation patient will state her name, will not give any history regarding presentation. Patient is just saying random words and not answering my questions directly. Patient has pressured speech and intermittently has psychomotor agitation. Nursing Notes were reviewed. Limitations to history: Behavior Outside historians: EMS REVIEW OF SYSTEMS Review of Systems PAST MEDICAL HISTORY Past Medical History: Diagnosis Date Abscess Cerebral artery occlusion with cerebral infarction (CMS/HCC) (HCC) Clotting disorder (CMS/HCC) (HCC) DVT (deep vein thrombosis) in Gall stone GI bleed Hyperlipidemia Migraine Pancreatitis SURGICAL HISTORY Past Surgical History: Procedure Laterality Date SECTION (HISTORICAL) CHOLECYSTECTOMY COLONOSCOPY 04/12/2016 HYSTERECTOMY IVC FILTER RETRIEVAL CURRENT MEDICATIONS Previous Medications No medications on file ALLERGIES Patient has no allergy information on record. FAMILY HISTORY Family History Problem Relation Name Age of Onset Hyperlipidemia Mother High Blood Pressure Mother SOCIAL HISTORY Social History Socioeconomic History Marital status: Tobacco Use Smoking status: Every Day Packs/day: 1.00 Types: Cigarettes Smokeless tobacco: Never Substance and Sexual Activity Alcohol use: No Drug use: No SCREENINGS PHYSICAL EXAM ED Triage Vitals [04/29/23 2345] Temp Heart Rate Resp BP (!) 35.1 C (95.2 F) 110 -- (!) 122/92 SpO2 Temp Source Heart Rate Source Patient Position 97 % Temporal Monitor -- BP Location FiO2 (%) -- -- GENERAL APPEARANCE: Awake and alert. Intermittent psychomotor agitation. HEAD: Normocephalic. Atraumatic. EYES: EOM's grossly intact. Sclera anicteric. ENT: Mucous membranes are moist. Tolerates saliva. No trismus. NECK: Supple. No meningismus. Trachea midline. HEART: RRR. Radial pulses 2+. LUNGS: Respirations unlabored. CTAB ABDOMEN: Soft. Non-tender. No guarding, rigidity or rebound. No distention. Barrett's negative. No McBurney's point tenderness. EXTREMITIES: No acute deformities. SKIN: Warm and dry. NEUROLOGICAL: No gross facial drooping. Moves all 4 extremities spontaneously. PSYCHIATRIC: Alternating flat affect and pressured speech with psychomotor agitation. Refuses to answer questions. Pressured speech, continuously stating different words. DIAGNOSTIC RESULTS RADIOLOGY (Per Emergency Physician): Interpretation per the Radiologist below, if available at the time of this note: No orders to display ED BEDSIDE ULTRASOUND: Performed by ED Physician - none LABS: Labs Reviewed - No data to display All other labs were within normal range or not returned as of this dictation. EMERGENCY DEPARTMENT COURSE and DIFFERENTIAL DIAGNOSIS/MDM: Vitals: Vitals: 04/29/23234404/30/2331 BP: (!) 122/92 Pulse: 110 Resp: 15 Temp: (!) 35.1 C (95.2 F) TempSrc: Temporal SpO2: 97% Diagnoses as of 04/30/2334 Psychosis, unspecified psychosis type (HCC) Agitation Medications haloperidol lactate (Haldol) injection 5 mg (5 mg IntraMUSCular Given 04/29/232345) LORazepam (Ativan) injection 2 mg (2 mg IntraMUSCular Given 04/29/232346) droperidol (Inapsine) injection 5 mg (5 mg IntraMUSCular Given 04/30/2331) MDM: Difficult to obtain initial vital signs due to patient's agitation and unwillingness to remain still. Work-up from [facility] was reviewed, minimal leukocytosis of 11.2, no evidence of anemia. Electrolytes demonstrate mild hypokalemia of 3.2, otherwise within normal limits without evidence of renal dysfunction. Minimally elevated AST/ALT of 56/112. Lipase within normal limits. Acetaminophen level negative. Salicylate level 3.1. Ethanol negative. EKG with sinus tachycardia, rate of 105 bpm, QTc 431, remainder of intervals within normal limits. On my evaluation patient has mild psychomotor agitation, pressured speech and unwilling to cooperate with history. No evidence of head trauma on examination, EMS denies any head injury or trauma. Patient is moving all 4 extremities spontaneously and is ambulating with a steady gait around the room. Low suspicion for acute intracranial pathology. Patient's agitation is likely secondary to her drug use, psychosis. Medicated with IM Haldol, IM Ativan. Patient was monitored in the emergency department following administration, calm, cooperative. Patient remains medically clear for psychiatric admission. Patient received additional dosing of IM droperidol. Repeat vital signs are within normal limits, patient is calm and cooperative. Patient is stable for transfer to [facility], discussed with [facility] today are willing to continue to accept patient in transfer. Patient was transferred in stable condition by EMS to [facility] for further management. CRITICAL CARE TIME Total Critical Care time was 32 minutes, excluding separately reportable procedures. There was a high probability of clinically significant/life threatening deterioration in the patient's condition which required my urgent intervention. CONSULTS: None PROCEDURES: Unless otherwise noted below, none Procedures FINAL IMPRESSION 1. Psychosis, unspecified psychosis type (HCC) 2. Agitation DISPOSITION Transfer To Another Facility 04/30/2023 12:33:51 AM PATIENT REFERRED TO: No follow-up provider specified. DISCHARGE MEDICATIONS: New Prescriptions No medications on file (Comment: Please note this report has been produced using speech recognition software and may contain errors related to that system including errors in grammar, punctuation, and spelling, as well as words and phrases that may be inappropriate. If there are any questions or concerns please feel free to contact the dictating provider for clarification.) Lisbeth Davies DO (electronically signed) Emergency Medicine Provider Lisbeth Davies DO 04/30/23 0045 documented in this encounter [facility] 04-29-2023 Emergency department Note Pt arrived through [facility] ED with [facility]. This RN spoke with Gael RN coordinator at [facility] ED. Pt was en route to [facility] in [place] for psych admit. 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 [facility] dispatch advised to come to nearest ED. Pt arrived to triage in wheelchair with EMS, mumbling words, not making sense. Pt did verify name, , address once registered. This RN got report from Gael at [facility]- Pt had arrived today at [facility] for anxiety and depression, was pink slipped. Pt has had previous admissions for psychosis in past. Drug screen per RN in ED today was positive for opiates, PCP, marijuana. Pt has allergies to Penicillin, Neurontin, sulfa. [facility] was notifed of pt being brought to [facility] ED. Chayito Stated pt had left ED calm and cooperative. This RN called [facility] and spoke with Dianne VILLANUEVA. Bed is held for pt once cleared by [facility] ED. Will fax paperwork needed to [facility] prior to transport. Jennifer Hancock RN 04/29/23 2322 Jennifer Hancock RN 04/29/23 2333 Jennifer Hancock RN 04/29/23 2342 Jennifer Hancock RN 04/29/23 2348 [facility] 04-29-2023 Emergency department Note Room cleared and made safe per protocol, protective services in ED for safety of patient and staff. Patient in gown already from transport. Belongings already bagged and brought in by air transport professionals, checked by [facility] protective services Caron Saucedo RN 04/29/23 6595 [facility] 04-29-2023 Physician Emergency department Note EMERGENCY DEPARTMENT ENCOUNTER Pt Name: Dorothea Rutledge Birthdate 1975 Date of evaluation: 04/29/2023 ED Provider: Lisbeth Davies DO CHIEF COMPLAINT Chief Complaint Patient presents with Psychiatric Evaluation Being transported from [facility] to [facility] in [place] for behavioral, anxiety and depression. En route patient became aggressive and confused so the lumber stacker driver came here for emergency assistance. Word salad upon admission to this ED, unable to communicate clearly or answers questions. Denies etoh or drug use at this time. Random words being continuously spoken. HISTORY OF PRESENT ILLNESS (Location/Symptom, Timing/Onset, Context/Setting, Quality, Duration, Modifying Factors, Severity) Note limiting factors. I wore appropriate PPE for the entirety of this encounter. HPI Dorothea Rutledge is a 47 y.o. female who presents to the emergency department with chief complaint of agitation. Patient was initially at [facility], seen for similar agitation and acting bizarrely. Patient was medically cleared and plan to admit to [facility] in [place]. In route from [facility] patient was initially calm and cooperative however became agitated and was reaching through the screen in the ambulance and acting erratically. Diverted to our facility for evaluation. Per EMS there were no falls, head injury or trauma. Patient did not have access to her clothing or any medications in route. On my evaluation patient will state her name, will not give any history regarding presentation. Patient is just saying random words and not answering my questions directly. Patient has pressured speech and intermittently has psychomotor agitation. Nursing Notes were reviewed. Limitations to history: Behavior Outside historians: EMS REVIEW OF SYSTEMS Review of Systems PAST MEDICAL HISTORY Past Medical History: Diagnosis Date Abscess Cerebral artery occlusion with cerebral infarction (CMS/HCC) (HCC) Clotting disorder (CMS/HCC) (HCC) DVT (deep vein thrombosis) in Gall stone GI bleed Hyperlipidemia Migraine Pancreatitis SURGICAL HISTORY Past Surgical History: Procedure Laterality Date SECTION (HISTORICAL) CHOLECYSTECTOMY COLONOSCOPY 04/12/2016 HYSTERECTOMY IVC FILTER RETRIEVAL CURRENT MEDICATIONS Previous Medications No medications on file ALLERGIES Patient has no allergy information on record. FAMILY HISTORY Family History Problem Relation Name Age of Onset Hyperlipidemia Mother High Blood Pressure Mother SOCIAL HISTORY Social History Socioeconomic History Marital status: Tobacco Use Smoking status: Every Day Packs/day: 1.00 Types: Cigarettes Smokeless tobacco: Never Substance and Sexual Activity Alcohol use: No Drug use: No SCREENINGS PHYSICAL EXAM ED Triage Vitals [04/29/23 2345] Temp Heart Rate Resp BP (!) 35.1 C (95.2 F) 110 -- (!) 122/92 SpO2 Temp Source Heart Rate Source Patient Position 97 % Temporal Monitor -- BP Location FiO2 (%) -- -- GENERAL APPEARANCE: Awake and alert. Intermittent psychomotor agitation. HEAD: Normocephalic. Atraumatic. EYES: EOM's grossly intact. Sclera anicteric. ENT: Mucous membranes are moist. Tolerates saliva. No trismus. NECK: Supple. No meningismus. Trachea midline. HEART: RRR. Radial pulses 2+. LUNGS: Respirations unlabored. CTAB ABDOMEN: Soft. Non-tender. No guarding, rigidity or rebound. No distention. Barrett's negative. No McBurney's point tenderness. EXTREMITIES: No acute deformities. SKIN: Warm and dry. NEUROLOGICAL: No gross facial drooping. Moves all 4 extremities spontaneously. PSYCHIATRIC: Alternating flat affect and pressured speech with psychomotor agitation. Refuses to answer questions. Pressured speech, continuously stating different words. DIAGNOSTIC RESULTS RADIOLOGY (Per Emergency Physician): Interpretation per the Radiologist below, if available at the time of this note: No orders to display ED BEDSIDE ULTRASOUND: Performed by ED Physician - none LABS: Labs Reviewed - No data to display All other labs were within normal range or not returned as of this dictation. EMERGENCY DEPARTMENT COURSE and DIFFERENTIAL DIAGNOSIS/MDM: Vitals: Vitals: 04/29/23234404/30/2331 BP: (!) 122/92 Pulse: 110 Resp: 15 Temp: (!) 35.1 C (95.2 F) TempSrc: Temporal SpO2: 97% Diagnoses as of 04/30/2334 Psychosis, unspecified psychosis type (HCC) Agitation Medications haloperidol lactate (Haldol) injection 5 mg (5 mg IntraMUSCular Given 04/29/232345) LORazepam (Ativan) injection 2 mg (2 mg IntraMUSCular Given 04/29/232346) droperidol (Inapsine) injection 5 mg (5 mg IntraMUSCular Given 04/30/2331) MDM: Difficult to obtain initial vital signs due to patient's agitation and unwillingness to remain still. Work-up from [facility] was reviewed, minimal leukocytosis of 11.2, no evidence of anemia. Electrolytes demonstrate mild hypokalemia of 3.2, otherwise within normal limits without evidence of renal dysfunction. Minimally elevated AST/ALT of 56/112. Lipase within normal limits. Acetaminophen level negative. Salicylate level 3.1. Ethanol negative. EKG with sinus tachycardia, rate of 105 bpm, QTc 431, remainder of intervals within normal limits. On my evaluation patient has mild psychomotor agitation, pressured speech and unwilling to cooperate with history. No evidence of head trauma on examination, EMS denies any head injury or trauma. Patient is moving all 4 extremities spontaneously and is ambulating with a steady gait around the room. Low suspicion for acute intracranial pathology. Patient's agitation is likely secondary to her drug use, psychosis. Medicated with IM Haldol, IM Ativan. Patient was monitored in the emergency department following administration, calm, cooperative. Patient remains medically clear for psychiatric admission. Patient received additional dosing of IM droperidol. Repeat vital signs are within normal limits, patient is calm and cooperative. Patient is stable for transfer to [facility], discussed with [facility] today are willing to continue to accept patient in transfer. Patient was transferred in stable condition by EMS to [facility] for further management. CRITICAL CARE TIME Total Critical Care time was 32 minutes, excluding separately reportable procedures. There was a high probability of clinically significant/life threatening deterioration in the patient's condition which required my urgent intervention. CONSULTS: None PROCEDURES: Unless otherwise noted below, none Procedures FINAL IMPRESSION 1. Psychosis, unspecified psychosis type (HCC) 2. Agitation DISPOSITION Transfer To Another Facility 04/30/2023 12:33:51 AM PATIENT REFERRED TO: No follow-up provider specified. DISCHARGE MEDICATIONS: New Prescriptions No medications on file (Comment: Please note this report has been produced using speech recognition software and may contain errors related to that system including errors in grammar, punctuation, and spelling, as well as words and phrases that may be inappropriate. If there are any questions or concerns please feel free to contact the dictating provider for clarification.) Lisbeth Davies DO (electronically signed) Emergency Medicine Provider Lisbeth Davies DO 04/30/23 0045 [facility] 04-29-2023 Nurse Progress note Patient stopped rent and housing investigator care at 2155. Patient care transferred to transport to [facility]. Patient transported to [facility]. Digitally Signed by Shantell Mulligan LPN on 04/29/2023 10:16 PM [facility] 04-29-2023 Nurse Progress note patient ambulated out of room and attempted to leave ER. patient attempted to enter another patients room and was stopped by staff. patient redirected back into room and rent and housing investigator care started for safety at [address] Quiroz. Security at bedside for wanding procedure Digitally Signed by Shantell Mulligan LPN on 04/29/2023 08:13 PM [facility] 04-29-2023 SARS-CoV-2 (COVID-19) RNA SANNA+probe Ql (Nph) Negative *NA* (04/29/23 12:42 PM) AO Auto Urine SS 04-29-2023 Note Sinus tachycardia Left atrial enlargement Left axis deviation Low voltage, precordial leads Borderline T abnormalities, inferior leads Borderline prolonged QT interval Electronic Signature: MD SAWYER, LETHA VASQUEZ 04/29/2023 15:00:27 [facility] Seanoz Chawla 04-28-2023 Hospital Discharge instructions Activity:activity as tolerated.Follow Up Appointment 1:Physician/Dept/Service: Cj Rivera CNP, PCPScheduled Date/Time: 03-May-2023 13:00Location: [address] [facility] [address]Itzzs Number: [phone]: Please bring insurance information and photo IDFollow Up Appointment 2:Physician/Dept/Service: Dr. Colton Hicks, GastroenterologyScheduled Date/Time: 18-May-2023 10:20Location: [facility], [address] [facility] [place] [facility] [place] [facility] Floor [address] [id number] Number: [phone]: Please bring insurance information and photo ID [facility] 04-26-2023 Reason for referral (narrative) Reason for Referral: ED visit 04/26 p/w epigastric pain from acute/chronic pancreatitis exacerbation [facility] 04-25-2023 Note Discharge Instructions Thank you for allowing [facility] to assist you with your healthcare needs. The following is important discharge information regarding your hospital visit. Diagnosis from Today's Visit Abdominal pain reevaluation Fever Pancreatic cyst Pancreatitis What to Do Next Instructions from Your Care Team No qualifying data available. Post Acute Orders No qualifying data available. You Need to Schedule the Following Appointments Follow Up with [facility] When In 1 day Why: Go directly to for further evaluation and treatment. Allergies penicillin (Rash) Neurontin (Vomiting) sulfa drug Medications Please ask your primary doctor or pharmacist before taking any other medication not listed, including over the counter drugs, herbal medications, vitamins and or supplements as they may interact with your home medications. What How Much When Instructions Last Dose Unchanged acetaminophen-oxyCODONE (acetaminophen-oxyCODONE 325 mg-5 mg oral tablet) 2 tab(s) by mouth Every 6 hours as needed for for pain Unchanged APAP/ butalbital/ caffeine (APAP/ butalbital/ caffeine 325-50-40 mg oral tablet (Fioricet)) 1 tab(s) by mouth Every 4 hours as needed for as needed in absence of pcp Unchanged ascorbic acid (Vitamin C 1000 mg oral tablet) 1 tab(s) by mouth Once a day Unchanged cholecalciferol (cholecalciferol 1250 mcg (50,000 intl units) oral capsule) 1 cap by mouth Every Tuesday Duration: 90 Days Unchanged clonazePAM (clonazePAM 0.5 mg oral tablet) 1 tab(s) by mouth Once a day as needed for Anxiety Unchanged cloNIDine (cloNIDine 0.2 mg oral tablet) 1 tab(s) by mouth Once a day Duration: 90 Days Unchanged dicyclomine (dicyclomine 10 mg oral capsule) 1 cap by mouth Four (4) times a day Duration: 10 Days Unchanged fenofibrate (fenofibrate 145 mg oral tablet) 1 tab(s) by mouth Once a day Unchanged furosemide (furosemide 40 mg oral tablet) 1 tab(s) by mouth Once a day Duration: 90 Days Unchanged hydroCHLOROthiazide (hydroCHLOROthiazide 25 mg oral tablet) 1 tab(s) by mouth Once a day Unchanged lacosamide (lacosamide 100 mg oral tablet) 1 tab(s) by mouth Once a day (in the morning) Unchanged lacosamide (lacosamide 100 mg oral tablet) 2 tab(s) by mouth Once a day (in the evening) Unchanged lactulose (lactulose 10 g/ 15 mL oral syrup) 15 Milliliter by mouth Two (2) times a day as needed for as needed for constipation Unchanged linaclotide (Linzess 290 mcg oral capsule) 1 cap by mouth Once a day Duration: 90 Days Unchanged magnesium salicylate (magnesium salicylate 600 mg oral tablet) 1 tab(s) by mouth Every 4 hours Unchanged methenamine (methenamine hippurate 1 g oral tablet) 1 tab(s) by mouth Once a day Duration: 90 Days Unchanged metoprolol (metoprolol succinate 25 mg oral TABLET extended release) 1 tab(s) by mouth Once a day Duration: 30 Days Unchanged naloxone (naloxone 4 mg/ 0.1 mL nasal spray) 1 spray(s) Intranasal As Directed as needed for see pharmacy notes may repeat every 2 to 3 minutes until patient responds Unchanged nitrofurantoin (Macrobid 100 mg oral capsule) 1 cap by mouth Once a day as needed for Symptoms of urinary discomfort Take with food Unchanged nortriptyline (nortriptyline 25 mg oral capsule) 1 cap by mouth Three (3) times a day Unchanged omeprazole (omeprazole 40 mg oral delayed release capsule) 1 cap by mouth Two (2) times a day Duration: 90 Days Unchanged ondansetron (ondansetron 8 mg oral tablet, disintegrating) 1 tab(s) by mouth Three (3) times a day as needed for Nausea Unchanged oxyCODONE (oxyCODONE 5 mg oral tablet ( IMMEDIATE release )) 2 tab(s) by mouth Every 6 hours as needed for for pain Unchanged pancrelipase (Creon 12,000 units oral delayed release capsule) 1 cap by mouth Three (3) times a day Unchanged pancrelipase (Creon 36,000 units oral delayed release capsule) 1 cap by mouth Four (4) times a day Unchanged potassium chloride (potassium chloride 20 mEq oral tablet, extended release) 1 tab(s) by mouth Three (3) times a day Duration: 90 Days Unchanged promethazine (promethazine 25 mg oral tablet) 1 tab(s) by mouth Every 6 hours as needed for for nausea/vomiting Unchanged promethazine (promethazine 25 mg oral tablet) 1 tab(s) by mouth Two (2) times a day Duration: 14 Days Unchanged rivaroxaban (Xarelto 10 mg oral tablet) 1 tab(s) by mouth Once a day Duration: 90 Days Unchanged rOPINIRole (rOPINIRole 0.5 mg oral tablet) 1 tab(s) by mouth Two (2) times a day Duration: 90 Days Unchanged valACYclovir (valACYclovir 500 mg oral tablet) 1 tab(s) by mouth Once a day Duration: 90 Days Unchanged venlafaxine (venlafaxine 150 mg oral capsule, extended release) 1 cap by mouth Once a day Duration: 90 Days for a total of 225 mg/ day. Unchanged venlafaxine (venlafaxine 75 mg oral capsule, extended release) 1 cap by mouth Once a day Duration: 90 Days for a total of 225 mg/ day. Please take this list to your next doctor s visit. Bring all medications you take, including over the counter medications, herbals and other supplements with you to your doctor s visit. Patients and families are reminded to discard old lists and to update any records with all medication providers or retail pharmacies. Education Materials Pancreatitis The pancreas is an organ in the abdomen that secretes digestive juices into the stomach. Pancreatitis is an inflammation of the pancreas. In many cases, it is caused when the duct that connects the pancreas and gallbladder is blocked by a gallstone. Heavy alcohol use is another major cause. Less common causes can include medicines, trauma, certain medical procedures, viruses, and toxins. Sometimes the cause of pancreatitis cannot be found. Genetic testing is sometimes done in those cases, especially if there is a family history of pancreas disease. Symptoms of pancreatitis include: Severe abdominal pain Nausea and vomiting Severe indigestion Racing heart Fever If the pancreatitis becomes chronic, diarrhea, chronic pain, weight loss, and poor nutrition can result. At first, pancreatitis may be treated in the hospital. It may be diagnosed by history, exam, blood tests, and sometimes imaging studies. There, fluids and medicines can be provided. The underlying cause of the problem must also be treated to prevent further problems. If gallstones are the cause, you and your healthcare provider can discuss options for treating them. This usually results in gallbladder surgery. Sometimes another test must be done to clear the drainage ducts of a blocked gallstones. If alcohol is the cause, talk with your healthcare provider about a program to help you stop drinking. Home care Don't drink alcohol. Rest in bed or sit up in a chair until you feel better. Take medicines as prescribed. If you were given an antibiotic for infection, take it until it is gone, even if you feel better. Let your healthcare provider know if you vomit up your medicine. Tips for eating and drinking: If instructed, avoid eating or drinking until nausea and vomiting go away. Try sipping clear liquids to prevent dehydration. When you begin eating again, start with small amounts. Have small, more frequent meals rather than larger meals. Low fat meals are best. Follow-up care Follow up with your healthcare provider as advised. When to seek medical advice Call your healthcare provider right away for any of the following: Continued or worsening pain Repeated vomiting Dizziness, weakness Fever of 100.4 F (38 C) or higher, or as directed by your healthcare provider Severe muscle cramps Call 911 Call 911 if you have any of the following: Vomiting blood or large amounts of blood in stool Seizure Loss of consciousness [phone] [employer]. [address] [place] [address]. All rights reserved. This information is not intended as a substitute for professional medical care. Always follow your healthcare professional's instructions. Additional Information VACCINATE! IT SAVES LIVES! Members of the community who have not yet received the COVID-19 vaccine and would like to receive it can visit one of [facility] vaccine clinics. There are many vaccine clinic locations within the [facility]. For locations and available times, please visit www.[email or web address].[place].gov/ . It is important to note that some COVID mobile vaccine clinics are held outdoors and may be canceled in rainy or stormy conditions. To learn more about pediatric vaccinations (ages 5-11), we invite you to visit the [facility] webpage. [email or web address] [email or web address] To learn more about the COVID-19 vaccine, we invite you to visit the CDC website for a list of frequently asked questions. https://www.cdc.gov/coronavirus/2019 -ncov/vaccines/faq.html [facility] Patient Portal Access Instructions: Stay connected with your healthcare team and access your personal medical information anytime with the [facility] Patient Portal. If you would like a full copy of your medical records please contact the [facility] Medical Records Department Tuesday through Tuesday between 8a.m. and 4:30p.m. Please follow the directions below to access the portal: 1.Access the email account you provided upon registration to the [facility].2.Look for an invitation email from [facility].3.Open the email and access the invitation link: Accept Invitation to [facility]4.Fill in the required azul to create your account. Sign into [email or web address] with your username and password that you created in the above steps to stay up to date. You can then view a summary of results, a summary of your visits, and the ability to download your summaries to your computer or send the information securely to a physician. Remember that your healthcare information is confidential, so carefully consider who you will allow to register on the [facility] Patient Portal for access to your information. You can also access the [facility] Patient Portal on the [employer]. Simply click on Health Records under Health Data and then click on the [employer] logo. HOW TO SAFELY DISPOSE OF PRESCRIPTION MEDICATIONS Please use one of the following methods to safely dispose of your unused medications. 1.Use a drug disposal kit: the drug disposal pouch allows you to safely discard your old and unused drugs. Ask your nurse to give you one when you are discharged.2.Visit a local take-back location: Many local pharmacies and police departments have programs that collect old and unwanted prescription drugs. Call your local pharmacy or go to http://[employer].CMGE/1Y9Lp0h to find one close to you.3.Make use of household items: Use cat litter or old coffee grounds to dispose medications if other options are not available. Mix your drugs with these household products, seal them in an airtight container and throw it into the garbage. Call [facility]: [phone] to be sure your drugs can be disposed of in this way. Some medicines may require a different approach.4.Never flush your medications down the toilet. IF YOU HAVE BEEN PRESCRIBED AN OPIOIDS FOR PAIN If you have been prescribed an opioid (such as hydrocodone, oxycodone or morphine), it is critical to understand the possible side effects and risks of opioid pain medications. Even when taken as directed, opioids can have several side effects including: Tolerance, meaning you might need to take more of a medication for the same pain relief. Nausea, vomiting and/or constipation. Sleepiness, dizziness, dry mouth, confusion, depression or itching. Physical dependence, meaning you have withdrawal symptoms when a medication is stopped ? this can develop within a few days. KNOW YOUR RESPONSIBILITIES It is important to know exactly how much and how often to take the opioid pain medications you are prescribed. Never take opioids in higher amounts or more often than prescribed. Do not combine opioids with alcohol or other drugs that cause drowsiness, such as benzodiazepines, also known as benzos, including diazepam and alprazolam, muscle relaxants or sleep aids. Never sell or share prescription opioids. This is illegal. Store opioids in a secure place and out of reach of others (including children, family, friends and visitors). The last page(s) of this document has been signed and retained as a CHART COPY Signatures Patient Education Materials Pancreatitis Medication Leaflets My discharge plan and instructions have been reviewed and explained to me and IDOROTHEA RUTLEDGE M understand my current condition and have read and understand these discharge instructions. I have received a written copy of the plan/instructions. If I have questions, I am aware that I should contact my doctor. 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 Pancreatitis is an inflammation of the pancreas. In many cases, it is caused when the duct that connects the pancreas and gallbladder is blocked by a gallstone. Heavy alcohol use is another major cause. Less common causes can include medicines, trauma, certain medical procedures, viruses, and toxins. Sometimes the cause of pancreatitis cannot be found. Genetic testing is sometimes done in those cases, especially if there is a family history of pancreas disease. Symptoms of pancreatitis include: Severe abdominal pain Nausea and vomiting Severe indigestion Racing heart Fever If the pancreatitis becomes chronic, diarrhea, chronic pain, weight loss, and poor nutrition can result. At first, pancreatitis may be treated in the hospital. It may be diagnosed by history, exam, blood tests, and sometimes imaging studies. There, fluids and medicines can be provided. The underlying cause of the problem must also be treated to prevent further problems. If gallstones are the cause, you and your healthcare provider can discuss options for treating them. This usually results in gallbladder surgery. Sometimes another test must be done to clear the drainage ducts of a blocked gallstones. If alcohol is the cause, talk with your healthcare provider about a program to help you stop drinking. Home care Don't drink alcohol. Rest in bed or sit up in a chair until you feel better. Take medicines as prescribed. If you were given an antibiotic for infection, take it until it is gone, even if you feel better. Let your healthcare provider know if you vomit up your medicine. Tips for eating and drinking: If instructed, avoid eating or drinking until nausea and vomiting go away. Try sipping clear liquids to prevent dehydration. When you begin eating again, start with small amounts. Have small, more frequent meals rather than larger meals. Low fat meals are best. Follow-up care Follow up with your healthcare provider as advised. When to seek medical advice Call your healthcare provider right away for any of the following: Continued or worsening pain Repeated vomiting Dizziness, weakness Fever of 100.4 F (38 C) or higher, or as directed by your healthcare provider Severe muscle cramps Call 911 Call 911 if you have any of the following: Vomiting blood or large amounts of blood in stool Seizure Loss of consciousness [phone] [employer]. [address] [place] [address]. All rights reserved. This information is not intended as a substitute for professional medical care. Always follow your healthcare professional's instructions. Follow Up Care 04/25/2023 00:15:39 With:[facility] Address:Unknown When:Within 1 Day(s) Comments:Go directly to for further evaluation and treatment. [facility] 04-25-2023 Note ORIGINAL EXAMINATION: CT OF THE ABDOMEN AND PELVIS WITH CONTRAST 04/25/2023 1:17 am TECHNIQUE: CT of the abdomen and pelvis was performed with the administration of intravenous contrast. Multiplanar reformatted images are provided for review. Automated exposure control, iterative reconstruction, and/or weight based adjustment of the mA/kV was utilized to reduce the radiation dose to as low as reasonably achievable. COMPARISON: CT abdomen and pelvis on 03/28/2023. Ultrasound abdomen on 03/30/2023 HISTORY: ORDERING SYSTEM PROVIDED HISTORY: Reason for Exam: abdominal pain FINDINGS: Lower Chest: Mild scarring in right middle lobe and lingula is unchanged. No acute abnormality is present at the lung bases. Organs: Hepatomegaly is unchanged with right lobe of the liver measuring 22.7 cm in length. There is geographic fatty infiltration of the liver. No biliary ductal dilatation is present. Gallbladder has been removed. Region of the pancreatic head has been replaced with multiple cysts that are similar to previous exam but show mild enlargement. Cyst just posterior to the portal vein is 3.6 cm in transverse diameter, previously 2.7 cm. More anterior pancreatic cystic lesion is 3.2 cm and appears unchanged. The peripancreatic inflammation is minimal and has decreased since the prior exam. No new collections have developed. The spleen, adrenal glands, and kidneys show no sign of acute abnormality. GI/Bowel: The stomach and duodenum are unremarkable. There is no obstruction or inflammation of the small intestine. The appendix has been removed. The colon shows no sign of inflammation or obstruction. There is moderate fecal retention throughout the colon. No free intraperitoneal air or abnormal fluid collection in the peritoneum is present. Pelvis: Urinary bladder is normal in size and contains no stones. Uterus is been removed. There is no abnormal fluid collection in the pelvis or signs of inflammation. Peritoneum/Retroperitoneum: Abdominal aorta is nonaneurysmal. Inferior vena cava filter is in place. There is no retroperitoneal lymph node enlargement or abnormal fluid collection. Bones/Soft Tissues: No acute findings. IMPRESSION: Pancreatic and peripancreatic cysts in the region of the head of the pancreas with mild enlargement of couple cysts since 03/28/2023 but overall decreasing peripancreatic inflammation. No new collection has developed. Hepatomegaly with hepatic steatosis. Interpreted by: Kwame Mao MD Preliminary Report By: Kwame Mao MD Electronically signed By Kwame Mao MD Dictated Date: 04/25/2023 1:20:13 AM Prelim Date: 04/25/2023 1:29:18 AM Sign Date: 04/25/2023 1:29:18 AM Ordering Provider: [facility] 04-03-2023 Discharge summary Date of Service 04.03.23 Discharge Diagnosis 1. Acute pancreatitis (K85.90 - ICD-10-CM) 2. DVT - Deep vein thrombosis (I82.409 - ICD-10-CM) 3. Abdominal pain (R10.9 - ICD-10-CM) 4. Nausea (R11.0 - ICD-10-CM) 5. Factor V Leiden (D68.51 - ICD-10-CM) 6. Anxiety (F41.9 - ICD-10-CM) 7. Partial seizure (R56.9 - ICD-10-CM) 8. Recurrent pancreatitis (K85.90 - ICD-10-CM) 9. Stroke (I63.9 - ICD-10-CM) Additional Orders: Discontinued: APAP/butalbital/caffeine 325-50-40 mg oral tablet (Fioricet),Start: 04/02/23 9:55:00 EDT, Dose = 1 tab(s), Tab, Oral, q4h, PRN, Migraine headache, 04/02/23 9:55:00 EDT Discontinued: Dilaudid,Start: 04/02/23 9:58:00 EDT, Dose = 1 mg, = 1 mL, IV Push, q3h, PRN, Pain, breakthrough, 0, 04/02/23 9:58:00 EDT Discontinued: Vitamin C,Start: 04/02/23 12:00:00 EDT, Dose = 1,000 mg, = 2 tab(s), Oral, qDay, 04/02/23 9:54:00 EDT Discontinued: cloNIDine,Start: 04/02/23 22:00:00 EDT, Dose = 0.2 mg, = 1 tab(s), Oral, qHS, Hold if SBP (mmHg) < 110, 0, 04/02/23 9:57:00 EDT Discontinued: lactulose,Start: 04/02/23 9:54:00 EDT, Dose = 10 gram(s), = 15 mL, Oral, BID, 04/02/23 9:54:00 EDT Discontinued: oxyCODONE 5 mg oral tablet ( IMMEDIATE release ),Start: 04/02/23 13:00:00 EDT, Dose = 5 mg, = 1 tab(s), Oral, q6hr, 0, 04/02/23 12:35:00 EDT Discontinued: promethazine 25 mg oral tablet,Start: 04/02/23 9:55:00 EDT, Dose = 25 mg, = 1 tab(s), Oral, q6h, PRN, Nausea/Vomiting, 04/02/23 9:55:00 EDT Hospital Course Patient is a 47YOF w PMH of CVA, seizure disorder, FVL and 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 She was a binge drinker until 2011 and started having episodes of pancreatitis in 2012 and has been admitted multiple times for the same. She also has a history of narcotic dependence previously on buprenorphine/naloxone combination therapy. She presented to [facility] with abdominal pain and mild elevation in lipase and CT scan consistent with prior pancreatitis and was admitted. She continued to have significant pain and no real causal factor was found for pancreatitis. Throughout this workup she had an IgG4 level that came back marginally positive. Given her intractable symptoms and possible etiology of autoimmune, she was transferred to [facility] for GI evaluation. Patient continues to have abdominal pain and using IV pain medications. She is tolerating clear liquid diet but does not have much of an appetite. She denies chest pain or shortness of breath. She was seen here in consultation by gastroenterology who requested transfer to tertiary facility for endoscopic ultrasound. Patient in agreement. This was a shared visit with LISHA Soriano. I agree with the above dictation, in addition: I saw the patient in person. The patient states that she has been having recurrent pancreatitis, this is her fourth episode of in recent weeks. At time that I saw her she had what she describes as 4/10 pain in the epigastric region. 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 We contacted and they have accepted the patient but no timeframe as to when they will accept her. For now we will focus on treating the patient's acute flare of pancreatitis, we started her on schedule oxycodone and has Dilaudid as needed for breakthrough pain. We want to try and limit IV opioids as much as possible. She was at [facility] [place] for 3 days prior to coming to [facility] and did receive aggressive IV fluids, currently tolerating clear liquids so we will just keep her on IV fluids at 80 cc/h. My goal is to gradually increase her oral intake, will check for softs tomorrow. She has history of heart failure preserved ejection fraction, no concern for volume overload at this point. Continue her chronic anticoagulation, due to the fact that she is on anticoagulation we are not able to add NSAIDs to help with her pain control as this would increase her chance of having a bleed. Allergies penicillin (Rash) Neurontin (Vomiting) sulfa drug Consults Consult to Physician - Ordered -- 04/01/23 20:36:00 EDT, MATT LOVELACE MD, Routine, recurrent pancreatitis, ?autoimmune(mild igg4 elevation) Physical Exam Vitals and Measurements T: 37.3 C (Oral) TMIN: 36.8 C (Oral) TMAX: 37.3 C (Oral) HR: 84 RR: 19 BP: 147/81 SpO2: 96% Weight Dosing Weight: 100.2 kg (04/01/23) Code Status No qualifying data available. Admission Date 04.01.23 Discharge Date 04.03.23 Medications Changed APAP/butalbital/caffeine (APAP/butalbital/caffeine 325-50-40 mg oral tablet (Fioricet))1 tab(s) by mouth every 4 hours as needed. in absence of pcp. Refills: 0. methenamine (methenamine hippurate 1 g oral tablet)1 tab(s) by mouth once a day for 90 Days. Refills: 1. Unchanged ascorbic acid (Vitamin C 1000 mg oral tablet)1 tab(s) by mouth once a day. cholecalciferol (cholecalciferol 1250 mcg (50,000 intl units) oral capsule)1 cap by mouth every Tuesday for 90 Days. Refills: 3. clonazePAM (clonazePAM 0.5 mg oral tablet)1 tab(s) by mouth once a day as needed Anxiety. cloNIDine (cloNIDine 0.2 mg oral tablet)1 tab(s) by mouth once a day for 90 Days. Refills: 1. dicyclomine (dicyclomine 10 mg oral capsule)1 cap by mouth four (4) times a day for 10 Days. Refills: 0. fenofibrate (fenofibrate 145 mg oral tablet)1 tab(s) by mouth once a day. Refills: 3. furosemide (furosemide 40 mg oral tablet)1 tab(s) by mouth once a day for 90 Days. Refills: 1. hydroCHLOROthiazide (hydroCHLOROthiazide 25 mg oral tablet)1 tab(s) by mouth once a day. Refills: 2. lacosamide (lacosamide 100 mg oral tablet)1 tab(s) by mouth once a day (in the morning). lacosamide (lacosamide 100 mg oral tablet)2 tab(s) by mouth once a day (in the evening). lactulose (lactulose 10 g/15 mL oral syrup)15 Milliliter by mouth two (2) times a day as needed as needed for constipation. linaclotide (Linzess 290 mcg oral capsule)1 cap by mouth once a day for 90 Days. Refills: 1. magnesium salicylate (magnesium salicylate 600 mg oral tablet)1 tab(s) by mouth every 4 hours. metoprolol (metoprolol succinate 25 mg oral TABLET extended release)1 tab(s) by mouth once a day for 30 Days. Refills: 3. nitrofurantoin (Macrobid 100 mg oral capsule)1 cap by mouth once a day as needed Symptoms of urinary discomfort. Take with food. omeprazole (omeprazole 40 mg oral delayed release capsule)1 cap by mouth two (2) times a day for 90 Days. Refills: 1. potassium chloride (potassium chloride 20 mEq oral tablet, extended release)1 tab(s) by mouth three (3) times a day for 90 Days. Refills: 1. promethazine (promethazine 25 mg oral tablet)1 tab(s) by mouth every 6 hours as needed for nausea/vomiting. Refills: 0. rivaroxaban (Xarelto 10 mg oral tablet)1 tab(s) by mouth once a day for 90 Days. Refills: 1. rOPINIRole (rOPINIRole 0.5 mg oral tablet)1 tab(s) by mouth two (2) times a day for 90 Days. Refills: 1. valACYclovir (valACYclovir 500 mg oral tablet)1 tab(s) by mouth once a day for 90 Days. Refills: 3. venlafaxine (venlafaxine 150 mg oral capsule, extended release)1 cap by mouth once a day for 90 Days. for a total of 225 mg/day.. Refills: 1. venlafaxine (venlafaxine 75 mg oral capsule, extended release)1 cap by mouth once a day for 90 Days. for a total of 225 mg/day.. Refills: 1. Follow Up Appointments No qualifying data available. Follow Up Labs/Studies Discharge Labs No Follow-up Labs Discharge Studies No Follow-up Studies Discharge Diet No qualifying data available. Discharge Activity No qualifying data available. Discharge Disposition [facility] Information Provided To patient Digitally Signed by KAPIL SORIANO on 04/03/2023 01:42 PM [facility] 04-03-2023 Discharge summary Date of Service 04.03.23 Discharge Diagnosis 1. Acute pancreatitis (K85.90 - ICD-10-CM) 2. DVT - Deep vein thrombosis (I82.409 - ICD-10-CM) 3. Abdominal pain (R10.9 - ICD-10-CM) 4. Nausea (R11.0 - ICD-10-CM) 5. Factor V Leiden (D68.51 - ICD-10-CM) 6. Anxiety (F41.9 - ICD-10-CM) 7. Partial seizure (R56.9 - ICD-10-CM) 8. Recurrent pancreatitis (K85.90 - ICD-10-CM) 9. Stroke (I63.9 - ICD-10-CM) Additional Orders: Discontinued: APAP/butalbital/caffeine 325-50-40 mg oral tablet (Fioricet),Start: 04/02/23 9:55:00 EDT, Dose = 1 tab(s), Tab, Oral, q4h, PRN, Migraine headache, 04/02/23 9:55:00 EDT Discontinued: Dilaudid,Start: 04/02/23 9:58:00 EDT, Dose = 1 mg, = 1 mL, IV Push, q3h, PRN, Pain, breakthrough, 0, 04/02/23 9:58:00 EDT Discontinued: Vitamin C,Start: 04/02/23 12:00:00 EDT, Dose = 1,000 mg, = 2 tab(s), Oral, qDay, 04/02/23 9:54:00 EDT Discontinued: cloNIDine,Start: 04/02/23 22:00:00 EDT, Dose = 0.2 mg, = 1 tab(s), Oral, qHS, Hold if SBP (mmHg) < 110, 0, 04/02/23 9:57:00 EDT Discontinued: lactulose,Start: 04/02/23 9:54:00 EDT, Dose = 10 gram(s), = 15 mL, Oral, BID, 04/02/23 9:54:00 EDT Discontinued: oxyCODONE 5 mg oral tablet ( IMMEDIATE release ),Start: 04/02/23 13:00:00 EDT, Dose = 5 mg, = 1 tab(s), Oral, q6hr, 0, 04/02/23 12:35:00 EDT Discontinued: promethazine 25 mg oral tablet,Start: 04/02/23 9:55:00 EDT, Dose = 25 mg, = 1 tab(s), Oral, q6h, PRN, Nausea/Vomiting, 04/02/23 9:55:00 EDT Hospital Course Patient is a 47YOF w PMH of CVA, seizure disorder, FVL and 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 She was a binge drinker until 2011 and started having episodes of pancreatitis in 2012 and has been admitted multiple times for the same. She also has a history of narcotic dependence previously on buprenorphine/naloxone combination therapy. She presented to [facility] with abdominal pain and mild elevation in lipase and CT scan consistent with prior pancreatitis and was admitted. She continued to have significant pain and no real causal factor was found for pancreatitis. Throughout this workup she had an IgG4 level that came back marginally positive. Given her intractable symptoms and possible etiology of autoimmune, she was transferred to [facility] for GI evaluation. Patient continues to have abdominal pain and using IV pain medications. She is tolerating clear liquid diet but does not have much of an appetite. She denies chest pain or shortness of breath. She was seen here in consultation by gastroenterology who requested transfer to tertiary facility for endoscopic ultrasound. Patient in agreement. This was a shared visit with LISHA Soriano. I agree with the above dictation, in addition: I saw the patient in person. The patient states that she has been having recurrent pancreatitis, this is her fourth episode of in recent weeks. At time that I saw her she had what she describes as 4/10 pain in the epigastric region. 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 We contacted and they have accepted the patient but no timeframe as to when they will accept her. For now we will focus on treating the patient's acute flare of pancreatitis, we started her on schedule oxycodone and has Dilaudid as needed for breakthrough pain. We want to try and limit IV opioids as much as possible. She was at [facility] [place] for 3 days prior to coming to [facility] and did receive aggressive IV fluids, currently tolerating clear liquids so we will just keep her on IV fluids at 80 cc/h. My goal is to gradually increase her oral intake, will check for softs tomorrow. She has history of heart failure preserved ejection fraction, no concern for volume overload at this point. Continue her chronic anticoagulation, due to the fact that she is on anticoagulation we are not able to add NSAIDs to help with her pain control as this would increase her chance of having a bleed. Allergies penicillin (Rash) Neurontin (Vomiting) sulfa drug Consults Consult to Physician - Ordered -- 04/01/23 20:36:00 EDT, MATT LOVELACE MD, Routine, recurrent pancreatitis, ?autoimmune(mild igg4 elevation) Physical Exam Vitals and Measurements T: 37.3 C (Oral) TMIN: 36.8 C (Oral) TMAX: 37.3 C (Oral) HR: 84 RR: 19 BP: 147/81 SpO2: 96% Weight Dosing Weight: 100.2 kg (04/01/23) Code Status No qualifying data available. Admission Date 04.01.23 Discharge Date 04.03.23 Medications Changed APAP/butalbital/caffeine (APAP/butalbital/caffeine 325-50-40 mg oral tablet (Fioricet))1 tab(s) by mouth every 4 hours as needed. in absence of pcp. Refills: 0. methenamine (methenamine hippurate 1 g oral tablet)1 tab(s) by mouth once a day for 90 Days. Refills: 1. Unchanged ascorbic acid (Vitamin C 1000 mg oral tablet)1 tab(s) by mouth once a day. cholecalciferol (cholecalciferol 1250 mcg (50,000 intl units) oral capsule)1 cap by mouth every Tuesday for 90 Days. Refills: 3. clonazePAM (clonazePAM 0.5 mg oral tablet)1 tab(s) by mouth once a day as needed Anxiety. cloNIDine (cloNIDine 0.2 mg oral tablet)1 tab(s) by mouth once a day for 90 Days. Refills: 1. dicyclomine (dicyclomine 10 mg oral capsule)1 cap by mouth four (4) times a day for 10 Days. Refills: 0. fenofibrate (fenofibrate 145 mg oral tablet)1 tab(s) by mouth once a day. Refills: 3. furosemide (furosemide 40 mg oral tablet)1 tab(s) by mouth once a day for 90 Days. Refills: 1. hydroCHLOROthiazide (hydroCHLOROthiazide 25 mg oral tablet)1 tab(s) by mouth once a day. Refills: 2. lacosamide (lacosamide 100 mg oral tablet)1 tab(s) by mouth once a day (in the morning). lacosamide (lacosamide 100 mg oral tablet)2 tab(s) by mouth once a day (in the evening). lactulose (lactulose 10 g/15 mL oral syrup)15 Milliliter by mouth two (2) times a day as needed as needed for constipation. linaclotide (Linzess 290 mcg oral capsule)1 cap by mouth once a day for 90 Days. Refills: 1. magnesium salicylate (magnesium salicylate 600 mg oral tablet)1 tab(s) by mouth every 4 hours. metoprolol (metoprolol succinate 25 mg oral TABLET extended release)1 tab(s) by mouth once a day for 30 Days. Refills: 3. nitrofurantoin (Macrobid 100 mg oral capsule)1 cap by mouth once a day as needed Symptoms of urinary discomfort. Take with food. omeprazole (omeprazole 40 mg oral delayed release capsule)1 cap by mouth two (2) times a day for 90 Days. Refills: 1. potassium chloride (potassium chloride 20 mEq oral tablet, extended release)1 tab(s) by mouth three (3) times a day for 90 Days. Refills: 1. promethazine (promethazine 25 mg oral tablet)1 tab(s) by mouth every 6 hours as needed for nausea/vomiting. Refills: 0. rivaroxaban (Xarelto 10 mg oral tablet)1 tab(s) by mouth once a day for 90 Days. Refills: 1. rOPINIRole (rOPINIRole 0.5 mg oral tablet)1 tab(s) by mouth two (2) times a day for 90 Days. Refills: 1. valACYclovir (valACYclovir 500 mg oral tablet)1 tab(s) by mouth once a day for 90 Days. Refills: 3. venlafaxine (venlafaxine 150 mg oral capsule, extended release)1 cap by mouth once a day for 90 Days. for a total of 225 mg/day.. Refills: 1. venlafaxine (venlafaxine 75 mg oral capsule, extended release)1 cap by mouth once a day for 90 Days. for a total of 225 mg/day.. Refills: 1. Follow Up Appointments No qualifying data available. Follow Up Labs/Studies Discharge Labs No Follow-up Labs Discharge Studies No Follow-up Studies Discharge Diet No qualifying data available. Discharge Activity No qualifying data available. Discharge Disposition [facility] Information Provided To patient Digitally Signed by KAPIL SORIANO on 04/03/2023 01:42 PM [facility] 04-02-2023 Nurse Progress note [facility] and spoke with KAY White. Nurse to nurse report given regarding patient. Opportunity to answer questions given. Aware the transport scheduled to [facility] Patient here at [facility] at approx 12 am. Digitally Signed by Snow Dinh RN on 04/02/2023 10:37 PM [facility] 04-02-2023 Note Discharge Instructions Thank you for allowing [facility] to assist you with your healthcare needs. The following is important discharge information regarding your hospital visit. Your Care Team CJ RIVERA Your Diagnosis Acute pancreatitis, Recurrent pancreatitis DVT - Deep vein thrombosis Abdominal pain Nausea Factor V Leiden Anxiety Partial seizure Stroke What to do next Scheduled Follow-Up Appointments Appointment Type When With Where Contact InformationPC TCM 30 04/18/2023 03:30 PM EDT CJ RIVERA [facility] [place] The Following Activity and Diet Have Been Ordered for You No qualifying data available. No qualifying data available. The Following Equipment Has Been Ordered for You No qualifying data available. The Following Treatments Have Been Ordered for You Discharge Labs No qualifying data available. Discharge Radiology No qualifying data available. Other Therapies No qualifying data available. Post Acute Orders No qualifying data available. Someone Will Contact You Regarding These Home Health Referrals No home referrals have been ordered for you. No one will call you. Allergies penicillin (Rash) Neurontin (Vomiting) sulfa drug Medications Please ask your primary doctor or pharmacist before taking any other medication not listed, including over the counter drugs, herbal medications, vitamins and or supplements as they may interact with your home medications. What How Much When Instructions Last Dose Changed APAP/ butalbital/ caffeine (APAP/ butalbital/ caffeine 325-50-40 mg oral tablet (Fioricet)) 1 tab(s) by mouth Every 4 hours as needed for as needed in absence of pcp Changed methenamine (methenamine hippurate 1 g oral tablet) 1 tab(s) by mouth Once a day Duration: 90 Days Unchanged ascorbic acid (Vitamin C 1000 mg oral tablet) 1 tab(s) by mouth Once a day Unchanged cholecalciferol (cholecalciferol 1250 mcg (50,000 intl units) oral capsule) 1 cap by mouth Every Tuesday Duration: 90 Days Unchanged clonazePAM (clonazePAM 0.5 mg oral tablet) 1 tab(s) by mouth Once a day as needed for Anxiety Unchanged cloNIDine (cloNIDine 0.2 mg oral tablet) 1 tab(s) by mouth Once a day Duration: 90 Days Unchanged dicyclomine (dicyclomine 10 mg oral capsule) 1 cap by mouth Four (4) times a day Duration: 10 Days Unchanged fenofibrate (fenofibrate 145 mg oral tablet) 1 tab(s) by mouth Once a day Unchanged furosemide (furosemide 40 mg oral tablet) 1 tab(s) by mouth Once a day Duration: 90 Days Unchanged hydroCHLOROthiazide (hydroCHLOROthiazide 25 mg oral tablet) 1 tab(s) by mouth Once a day Unchanged lacosamide (lacosamide 100 mg oral tablet) 1 tab(s) by mouth Once a day (in the morning) Unchanged lacosamide (lacosamide 100 mg oral tablet) 2 tab(s) by mouth Once a day (in the evening) Unchanged lactulose (lactulose 10 g/ 15 mL oral syrup) 15 Milliliter by mouth Two (2) times a day as needed for as needed for constipation Unchanged linaclotide (Linzess 290 mcg oral capsule) 1 cap by mouth Once a day Duration: 90 Days Unchanged magnesium salicylate (magnesium salicylate 600 mg oral tablet) 1 tab(s) by mouth Every 4 hours Unchanged metoprolol (metoprolol succinate 25 mg oral TABLET extended release) 1 tab(s) by mouth Once a day Duration: 30 Days Unchanged nitrofurantoin (Macrobid 100 mg oral capsule) 1 cap by mouth Once a day as needed for Symptoms of urinary discomfort Take with food Unchanged omeprazole (omeprazole 40 mg oral delayed release capsule) 1 cap by mouth Two (2) times a day Duration: 90 Days Unchanged potassium chloride (potassium chloride 20 mEq oral tablet, extended release) 1 tab(s) by mouth Three (3) times a day Duration: 90 Days Unchanged promethazine (promethazine 25 mg oral tablet) 1 tab(s) by mouth Every 6 hours as needed for for nausea/vomiting Unchanged rivaroxaban (Xarelto 10 mg oral tablet) 1 tab(s) by mouth Once a day Duration: 90 Days Unchanged rOPINIRole (rOPINIRole 0.5 mg oral tablet) 1 tab(s) by mouth Two (2) times a day Duration: 90 Days Unchanged valACYclovir (valACYclovir 500 mg oral tablet) 1 tab(s) by mouth Once a day Duration: 90 Days Unchanged venlafaxine (venlafaxine 150 mg oral capsule, extended release) 1 cap by mouth Once a day Duration: 90 Days for a total of 225 mg/ day. Unchanged venlafaxine (venlafaxine 75 mg oral capsule, extended release) 1 cap by mouth Once a day Duration: 90 Days for a total of 225 mg/ day. Please take this list to your next doctor s visit. Bring all medications you take, including over the counter medications, herbals and other supplements with you to your doctor s visit. Patients and families are reminded to discard old lists and to update any records with all medication providers or retail pharmacies. Additional Information VACCINATE! IT SAVES LIVES! Members of the community who have not yet received the COVID-19 vaccine and would like to receive it can visit one of [facility] vaccine clinics. There are many vaccine clinic locations within the [facility]. For locations and available times, please visit [email or web address] It is important to note that some COVID mobile vaccine clinics are held outdoors and may be canceled in rainy or stormy conditions. To learn more about pediatric vaccinations (ages 5-11), we invite you to visit the [facility] webpage. [email or web address]/pages [email or web address] [email or web address] To learn more about the COVID-19 vaccine, we invite you to visit the CDC website for a list of frequently asked questions.https://www.cdc.gov/edge virus/2019-ncov/vaccines/faq.html [facility] Patient Portal Access Instructions: Stay connected with your healthcare team and access your personal medical information anytime with the [facility] Patient Portal. Please follow the directions below to create your [facility] account: 1.Access the email account you provided upon registration to the hospital/physician office.2.Look for an invitation email from [facility].3.Open the email and access the invitation link: Accept Invitation to [facility].4.Fill in the required azul to create your account. To access your account, visit [email or web address] Click the blue button labeled Access Patient Portal and then log in with the username and password that you created in the steps above. You will be able to view your test results, lab results, a summary of your visits, upcoming appointments and more. There is also a convenient messaging option where you can send secure messages to your provider. In addition, you will have the ability to download any documents or summaries to your computer and/or send the information securely to a physician. Remember that your healthcare information is confidential, so carefully consider who you will allow to register on the [facility] Patient Portal for access to your information. You can also access the [facility] Patient Portal on the [facility] [employer] leslie. Simply click on Patient Portal and then log into your account. If you would like to receive a full copy of your medical records, please contact the [facility] Medical Records Department by calling [phone], Tuesday through Tuesday between 8 a.m. and 4:30 p.m. HOW TO SAFELY DISPOSE OF PRESCRIPTION MEDICATIONS Please use one of the following methods to safely dispose of your unused medications. 1.Use a drug disposal kit: the drug disposal pouch allows you to safely discard your old and unused drugs. Ask your nurse to give you one when you are discharged.2.Visit a local take-back location: Many local pharmacies and police departments have programs that collect old and unwanted prescription drugs. Call your local pharmacy or go to [email or web address] to find one close to you.3.Make use of household items: Use cat litter or old coffee grounds to dispose medications if other options are not available. Mix your drugs with these household products, seal them in an airtight container and throw it into the garbage. Call [facility]: [phone] to be sure your drugs can be disposed of in this way. Some medicines may require a different approach.4.Never flush your medications down the toilet. IF YOU HAVE BEEN PRESCRIBED AN OPIOID FOR PAIN If you have been prescribed an opioid (such as hydrocodone, oxycodone or morphine), it is critical to understand the possible side effects and risks of opioid pain medications. Even when taken as directed, opioids can have several side effects including: Tolerance, meaning you might need to take more of a medication for the same pain relief. Nausea, vomiting and/or constipation. Sleepiness, dizziness, dry mouth, confusion, depression or itching. Physical dependence, meaning you have withdrawal symptoms when a medication is stopped, can develop within a few days. KNOW YOUR RESPONSIBILITIES It is important to know exactly how much and how often to take the opioid pain medications you are prescribed. Never take opioids in higher amounts or more often than prescribed. Do not combine opioids with alcohol or other drugs that cause drowsiness, such as benzodiazepines, also known as benzos, including diazepam and alprazolam, muscle relaxants or sleep aids. Never sell or share prescription opioids. This is illegal. Store opioids in a secure place and out of reach of others (including children, family, friends and visitors). The last page of this document has been signed and retained as a CHART COPY. Signatures Patient Education Materials Medication Leaflets My discharge plan and instructions have been reviewed and explained to me and IMATY AMANDA M understand my current condition and have read and understand these discharge instructions. I have received a written copy of the plan/instructions. If I have questions, I am aware that I should contact my doctor. 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 She was a binge drinker until 2011 and started having episodes of pancreatitis in 2012 and has been admitted multiple times for the same. She also has a history of narcotic dependence previously on buprenorphine/naloxone combination therapy. She presented to [facility] with abdominal pain and mild elevation in lipase and CT scan consistent with prior pancreatitis and was admitted. She continued to have significant pain and no real causal factor was found for pancreatitis. Throughout this workup she had an IgG4 level that came back marginally positive. Given her intractable symptoms and possible etiology of autoimmune, she was transferred to [facility] for GI evaluation. Patient continues to have abdominal pain and using IV pain medications. She is tolerating clear liquid diet but does not have much of an appetite. She denies chest pain or shortness of breath. She was seen here in consultation by gastroenterology who requested transfer to tertiary facility for endoscopic ultrasound. Patient in agreement. Objective Vitals and Measurements T: 36.8 C (Oral) TMIN: 36.6 C (Oral) TMAX: 36.8 C (Oral) HR: 79 RR: 18 BP: 119/79 SpO2: 94% Intake and Output 7AM Yesterday to 7AM Today Intake and Output (Last 24 hours) Intake Oral Intake 320.00 Output Urine Count 2.00 Total Summary Total Intake 320.00 Total Output 0.00 Fluid Balance 320.00 Physical Exam Weight Dosing Weight: 100.2 kg (04/01/23) Vitals Signs(Last 24 hrs)__ Last Charted Minimum Maximum Temp 36.8(APR 02 14:21) 36.8(APR 02 14:21) 36.6(APR 01 21:45) Heart Rate 70(APR 02 07:04) 70(APR 02 07:04) 70(APR 02 07:04) Resp Rate 18(APR 02:) 18(APR 01 20:05) 18(APR 01 20:05) SBP 119(APR 02:) 117(APR 02 00:00) 129(APR 01 18:43) DBP 79(APR 02:) 68(APR 01 21:45) 79(APR 02:) Physical Exam General: No acute distress. Alert and Appropriate Skin: No rash. Warm, Dry, Intact Lungs: Bilaterally clear breath sounds with no crepitation or wheeze. Cardiovascular: Heart is regular rhythm, S1S2, No extra-audible heart tones Abdomen: Abdomen is soft, tender RUQ Extremities: No clubbing, cyanosis or edema. Neurological: The patient is awake, oriented to person, place and time. Following simple commands, moving all extremities. DVT PROPHYLAXIS-xarelto Medications Medications (29) Active Scheduled: (16) ascorbic acid 500 mg tablet 1,000 mg 2 tab(s), Oral, qDay clonidine 0.2 mg Tablet 0.2 mg 1 tab(s), Oral, qHS hydrochlorothiazide 25 mg tablet 25 mg 1 tab(s), Oral, qDay lacosamide 100 mg tablet 200 mg 2 tab(s), Oral, qPM lacosamide 100 mg tablet 100 mg 1 tab(s), Oral, qAM lactulose 20 g/30 mL UD cup 10 gram(s) 15 mL, Oral, BID methenamine hippurate 1 gm tablet 1 gram(s) 1 tab(s), Oral, qDay metoprolol succinate 25 mg ER tablet 25 mg 1 tab(s), Oral, qDay oxycodone 5 mg tablet (immediate release) 5 mg 1 tab(s), Oral, q6hr pantoprazole 40 mg EC tablet 40 mg 1 tab(s), Oral, BIDAC polyethylene glycol 3350 - UD packet 17 gram(s) 15 mL, Oral, BID rivaroxaban 10 mg tablet 10 mg 1 tab(s), Oral, with supper rOPINIRole 0.5 mg tablet 0.5 mg 1 tab(s), Oral, BID valacyclovir 500 mg Tablet 500 mg 1 tab(s), Oral, qDay venlafaxine 150 mg ER capsule 150 mg 1 cap(s), Oral, qDay venlafaxine 75 mg ER capsule 75 mg 1 cap(s), Oral, qDay Continuous: (1) Lactated Ringers 1,000 mL 1,000 mL, Intravenous, 80 mL/hr PRN: (12) acetaminophen 325 mg Tablet 650 mg 2 tab(s), Oral, q6h acetaminophen 325 mg Tablet 650 mg 2 tab(s), Oral, q4h acetaminophen-OXYcodone 325 mg-5 mg Tablet 1 tab(s), Oral, q4h albuterol - ipratropium 2.5 mg-0.5 mg/3 mL Inhal Sherice UD 3 mL, Inhalation, q2hRT APAP/butalbital/caffeine (FioriCET) 325 mg-50 mg-40 mg Tablet 1 tab(s), Oral, q4h clonazePAM 0.5 mg tablet 0.5 mg 1 tab(s), Oral, qDay hydromorphone 1 mg/mL (1mL) INJ 0.5 mg 0.5 mL, IV Push, q2h hydromorphone 1 mg/mL (1mL) INJ 1 mg 1 mL, IV Push, q3h melatonin 3 mg tablet 3 mg 1 tab(s), Oral, qHS ondansetron 2 mg/ 1 mL 2 mL INJ 4 mg 2 mL, IV Push, q4h polyethylene glycol 3350 - UD packet 17 gram(s) 15 mL, Oral, BID promethazine 25 mg Tablet 25 mg 1 tab(s), Oral, q6h Lab Results No 36 Hour Lab Data EKG No qualifying data available. Assessment/Plan 1. Acute pancreatitis, Recurrent pancreatitis 2. DVT - Deep vein thrombosis 3. Abdominal pain 4. Nausea 5. Factor V Leiden 6. Anxiety 7. Partial seizure 9. Stroke Patient has recurrent pancreatitis and recently admitted with the same in February. IgG4 was elevated and there was concern for possible autoimmune pancreatitis. Seen in consultation by GI who requested transfer to outside facility for endoscopic ultrasound, fine-needle biopsy to ensure patient does not have pancreatic mass. Spoke with Dr. Ames from [facility] who accepted the patient however was told that it may be several days until she has a bed available. The did request that her images, on CD, expressed this to the charge nurse. Continue with IV fluids and clear liquids. Xarelto for history of factor V Leiden. Home meds resumed per her request scheduled PO pain meds in an effort to reduce IV Pain meds use split/shared visit with Dr. Childs Orders: APAP/butalbital/caffeine, Start: 04/02/23 9:55:00 EDT, Dose = 1 tab(s), Tab, Oral, q4h, PRN, Migraine headache, 04/02/23 9:55:00 EDT ascorbic acid, Start: 04/02/23 12:00:00 EDT, Dose = 1,000 mg, = 2 tab(s), Oral, qDay, 04/02/23 9:54:00 EDT cloNIDine, Start: 04/02/23 22:00:00 EDT, Dose = 0.2 mg, = 1 tab(s), Oral, qHS, Hold if SBP (mmHg) < 110, 0, 04/02/23 9:57:00 EDT HYDROmorphone, Start: 04/02/23 9:58:00 EDT, Dose = 1 mg, = 1 mL, IV Push, q3h, PRN, Pain, breakthrough, 0, 04/02/23 9:58:00 EDT lactulose, Start: 04/02/23 9:54:00 EDT, Dose = 10 gram(s), = 15 mL, Oral, BID, 04/02/23 9:54:00 EDT oxyCODONE, Start: 04/02/23 13:00:00 EDT, Dose = 5 mg, = 1 tab(s), Oral, q6hr, 04/02/23 12:35:00 EDT promethazine, Start: 04/02/23 9:55:00 EDT, Dose = 25 mg, = 1 tab(s), Oral, q6h, PRN, Nausea/Vomiting, 04/02/23 9:55:00 EDT Time Spent I spent a total of 36 minutes reviewing the patient s diagnostic labs/tests, seeing and examining the patient and documenting in the medical record, see assessment for further detail. Digitally Signed by KAPIL SORIANO on 04/02/2023 04:22 PM [facility] 04-02-2023 Note Date of Service 04.02.23 Chief Complaint abdominal pain Subjective Patient is a 47YOF w PMH of CVA, seizure disorder, FVL and 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 She was a binge drinker until 2011 and started having episodes of pancreatitis in 2012 and has been admitted multiple times for the same. She also has a history of narcotic dependence previously on buprenorphine/naloxone combination therapy. She presented to [facility] with abdominal pain and mild elevation in lipase and CT scan consistent with prior pancreatitis and was admitted. She continued to have significant pain and no real causal factor was found for pancreatitis. Throughout this workup she had an IgG4 level that came back marginally positive. Given her intractable symptoms and possible etiology of autoimmune, she was transferred to [facility] for GI evaluation. Patient continues to have abdominal pain and using IV pain medications. She is tolerating clear liquid diet but does not have much of an appetite. She denies chest pain or shortness of breath. She was seen here in consultation by gastroenterology who requested transfer to tertiary facility for endoscopic ultrasound. Patient in agreement. Objective Vitals and Measurements T: 36.8 C (Oral) TMIN: 36.6 C (Oral) TMAX: 36.8 C (Oral) HR: 79 RR: 18 BP: 119/79 SpO2: 94% Intake and Output 7AM Yesterday to 7AM Today Intake and Output (Last 24 hours) Intake Oral Intake 320.00 Output Urine Count 2.00 Total Summary Total Intake 320.00 Total Output 0.00 Fluid Balance 320.00 Physical Exam Weight Dosing Weight: 100.2 kg (04/01/23) Vitals Signs(Last 24 hrs)__ Last Charted Minimum Maximum Temp 36.8(APR 02:) 36.8(APR 02:21) 36.6(APR 01 21:45) Heart Rate 70(APR 02 07:04) 70(APR 02 07:04) 70(APR 02 07:04) Resp Rate 18(APR 02:21) 18(APR 01 20:05) 18(APR 01 20:05) SBP 119(APR 02 14:21) 117(APR 02 00:00) 129(APR 01 18:43) DBP 79(APR 02 14:21) 68(APR 01 21:45) 79(APR 02 14:21) Physical Exam General: No acute distress. Alert and Appropriate Skin: No rash. Warm, Dry, Intact Lungs: Bilaterally clear breath sounds with no crepitation or wheeze. Cardiovascular: Heart is regular rhythm, S1S2, No extra-audible heart tones Abdomen: Abdomen is soft, tender RUQ Extremities: No clubbing, cyanosis or edema. Neurological: The patient is awake, oriented to person, place and time. Following simple commands, moving all extremities. DVT PROPHYLAXIS-xarelto Medications Medications (29) Active Scheduled: (16) ascorbic acid 500 mg tablet 1,000 mg 2 tab(s), Oral, qDay clonidine 0.2 mg Tablet 0.2 mg 1 tab(s), Oral, qHS hydrochlorothiazide 25 mg tablet 25 mg 1 tab(s), Oral, qDay lacosamide 100 mg tablet 200 mg 2 tab(s), Oral, qPM lacosamide 100 mg tablet 100 mg 1 tab(s), Oral, qAM lactulose 20 g/30 mL UD cup 10 gram(s) 15 mL, Oral, BID methenamine hippurate 1 gm tablet 1 gram(s) 1 tab(s), Oral, qDay metoprolol succinate 25 mg ER tablet 25 mg 1 tab(s), Oral, qDay oxycodone 5 mg tablet (immediate release) 5 mg 1 tab(s), Oral, q6hr pantoprazole 40 mg EC tablet 40 mg 1 tab(s), Oral, BIDAC polyethylene glycol 3350 - UD packet 17 gram(s) 15 mL, Oral, BID rivaroxaban 10 mg tablet 10 mg 1 tab(s), Oral, with supper rOPINIRole 0.5 mg tablet 0.5 mg 1 tab(s), Oral, BID valacyclovir 500 mg Tablet 500 mg 1 tab(s), Oral, qDay venlafaxine 150 mg ER capsule 150 mg 1 cap(s), Oral, qDay venlafaxine 75 mg ER capsule 75 mg 1 cap(s), Oral, qDay Continuous: (1) Lactated Ringers 1,000 mL 1,000 mL, Intravenous, 80 mL/hr PRN: (12) acetaminophen 325 mg Tablet 650 mg 2 tab(s), Oral, q6h acetaminophen 325 mg Tablet 650 mg 2 tab(s), Oral, q4h acetaminophen-OXYcodone 325 mg-5 mg Tablet 1 tab(s), Oral, q4h albuterol - ipratropium 2.5 mg-0.5 mg/3 mL Inhal Sherice UD 3 mL, Inhalation, q2hRT APAP/butalbital/caffeine (FioriCET) 325 mg-50 mg-40 mg Tablet 1 tab(s), Oral, q4h clonazePAM 0.5 mg tablet 0.5 mg 1 tab(s), Oral, qDay hydromorphone 1 mg/mL (1mL) INJ 0.5 mg 0.5 mL, IV Push, q2h hydromorphone 1 mg/mL (1mL) INJ 1 mg 1 mL, IV Push, q3h melatonin 3 mg tablet 3 mg 1 tab(s), Oral, qHS ondansetron 2 mg/ 1 mL 2 mL INJ 4 mg 2 mL, IV Push, q4h polyethylene glycol 3350 - UD packet 17 gram(s) 15 mL, Oral, BID promethazine 25 mg Tablet 25 mg 1 tab(s), Oral, q6h Lab Results No 36 Hour Lab Data EKG No qualifying data available. Assessment/Plan 1. Acute pancreatitis, Recurrent pancreatitis 2. DVT - Deep vein thrombosis 3. Abdominal pain 4. Nausea 5. Factor V Leiden 6. Anxiety 7. Partial seizure 9. Stroke Patient has recurrent pancreatitis and recently admitted with the same in February. IgG4 was elevated and there was concern for possible autoimmune pancreatitis. Seen in consultation by GI who requested transfer to outside facility for endoscopic ultrasound, fine-needle biopsy to ensure patient does not have pancreatic mass. Spoke with Dr. Ames from [facility] who accepted the patient however was told that it may be several days until she has a bed available. The did request that her images, on CD, expressed this to the charge nurse. Continue with IV fluids and clear liquids. Xavi for history of factor V Leiden. Home meds resumed per her request scheduled PO pain meds in an effort to reduce IV Pain meds use split/shared visit with Dr. Childs Orders: APAP/butalbital/caffeine, Start: 04/02/23 9:55:00 EDT, Dose = 1 tab(s), Tab, Oral, q4h, PRN, Migraine headache, 04/02/23 9:55:00 EDT ascorbic acid, Start: 04/02/23 12:00:00 EDT, Dose = 1,000 mg, = 2 tab(s), Oral, qDay, 04/02/23 9:54:00 EDT cloNIDine, Start: 04/02/23 22:00:00 EDT, Dose = 0.2 mg, = 1 tab(s), Oral, qHS, Hold if SBP (mmHg) < 110, 0, 04/02/23 9:57:00 EDT HYDROmorphone, Start: 04/02/23 9:58:00 EDT, Dose = 1 mg, = 1 mL, IV Push, q3h, PRN, Pain, breakthrough, 0, 04/02/23 9:58:00 EDT lactulose, Start: 04/02/23 9:54:00 EDT, Dose = 10 gram(s), = 15 mL, Oral, BID, 04/02/23 9:54:00 EDT oxyCODONE, Start: 04/02/23 13:00:00 EDT, Dose = 5 mg, = 1 tab(s), Oral, q6hr, 04/02/23 12:35:00 EDT promethazine, Start: 04/02/23 9:55:00 EDT, Dose = 25 mg, = 1 tab(s), Oral, q6h, PRN, Nausea/Vomiting, 04/02/23 9:55:00 EDT Time Spent I spent a total of 36 minutes reviewing the patient s diagnostic labs/tests, seeing and examining the patient and documenting in the medical record, see assessment for further detail. Digitally Signed by KAPIL SORIANO on 04/02/2023 04:22 PM [facility] 04-02-2023 Gastroenterology Consult note Date of Service April 02, 2023 Reason for Consultation Pancreatitis Referring Physician Hospitalist History of Present Illness a 47YOF w PMH of CVA, seizure disorder, FVL and DVT on chronic rivaroxaban 10mg therapy, as well as history of GIB in 2017 and multiple previous episode of pancreatitis and history of alcoholism was transferred from outside hospital because of pancreatitis. The patient self-reported that she did have chronic recurrent pancreatitis once every year before January 2023. Over past 1/2 years, she did have a chronic intermittent mid to upper abdominal pain that has been associated with intermittent nausea and nonbloody emesis. Since January 2023, the medial upper abdominal pain had gotten worse and persistent. At that time she was diagnosis with recurrent pancreatitis. In February 2023 and March 2023 (this time), she again presented with worsening middle upper abdominal pain that has been associated with nonbloody emesis. Eating could aggravate the pain. The pain was anywhere between 7-9 out of 10 intensity and sometimes radiate to her back and right shoulder. She denied fever or chill. She lost 22 pounds since January 2023. She denied dysphagia odynophagia or heartburn. The last bowel movement happened 5 days ago which was brownish stool . There was no melena or bright red blood per rectum. Patient was prone to develop constipation at home, for which patient was taking stool softener and lactulose. Over the past 5 days, patient continue passing gas. The CT on 03/28 showed Redemonstration of heterogeneous enhancement of the pancreas with areas of lobular non enhancement and mild peripancreatic inflammation. These findings are not significantly changed from comparison 03/07/2023 exam. Interval increase in a small fluid density structure posterior to the main portal vein measuring 1.9 cm, previously 0.9 cm. The US on 03/30 showed There is a partially visualized fluid collection either adjacent to or within the head of the pancreas. These are better seen on the previous CT. The liver is diffusely increased in echogenicity with normal contours which is compatible with fatty change. The liver is normal in size. No hepatic mass or biliary ductal dilatation is identified. The patient is status post cholecystectomy. , and The common duct measures 11 mm, which is not significantly changed and may be normal for the patient's post cholecystectomy state . The CT on 03/07 showed Heterogeneous enhancement to the pancreas with areas of lobular nonenhancement. Mild surrounding peripancreatic fat stranding. Splenic vein and portal vein are patent. Kidneys enhance symmetrically. No hydronephrosis or hydroureter. MRCP with no contrast on 03/08 showed Common bile duct is dilated and measures 1.1 cm in diameter. Pancreatic duct is normal in caliber. No choledocholithiasis or obstructing mass within the common bile duct. The patient did have an elevated IgG4 and the patient's triglyceride level was normal. The patient did have chronic elevation of transaminase. In addition, the patient total bilirubin and indirect bilirubin were normal. The patient alkaline phosphatase had been elevated before January 2023. After January 2023, the alkaline phosphatase has been normalized. Review of Systems Review of systems are negative except as mentioned in HPI. Physical Exam Vitals and Measurements T: 36.6 C (Oral) TMIN: 36.6 C (Oral) TMAX: 37.1 C (Oral) HR: 70(Apical) RR: 18 BP: 129/78 SpO2: 94% HT: 160.0 cm WT: 100.2 kg BMI: 39.14 Weight Dosing Weight: 100.2 kg (04/01/23) General Appearance: Patient was not in distress on my evaluation Head: Atraumatic and normocephalic EENT: EOMI, PERRLA, no oropharyngeal erythema, no tonsillar exudates, no conjunctival injection. sclera anicteric. Neck: No thyromegaly, no cervical lymphadenopathy, trachea midline Cardiac: S1 and S2 normal. RRR. No murmurs, rubs, or gallops. No JVD. No hepatojugular reflex. Lungs: Good air entry bilaterally. No increased work for breathing. No wheezes, rhonchi, or rales. Abdomen: Soft, not distention, there was moderate tenderness on the upper middle abdomen and the right upper abdomen. There was no reboud tenderness and bowel sound was normal Musculoskeletal: Full range of motion upper and lower extremities. No CVA tenderness. Extremities: moist, warm, normal motility Neurological: No gross motor deficits Skin: moist, warm, there was no rash. Psychiatric: Alert and oriented, well groomed, euthymic. cooperative Lab Results No 36 Hour Lab Data Assessment/Plan 1. Recurrent pancreatitis. Based on current lab data and the radiologist data, the patient might develop focalized fluid collection such as pancreas cyst or pseudocyst around the pancreas. In addition the patient IgG4 was elevated which raise a concern of autoimmune pancreatitis. Currently, I highly recommended transferring patient to tertiary referring center where there is EUS available because the patient likely need a EUS and possible fine-needle biopsy to confirm autoimmune pancreatitis before the patient starts on corticosteroids. It is very essential to make sure patient did not have underlying pancreas mass or pancreas nodule such as pancreas cancer before the patient started corticosteroid to treat autoimmune pancreatitis. The EUS would be the test of choice. In the meantime, I recommended gentle IV fluid because patient did have a CHF. I also recommend escalate the pain management. 2. Chronic elevation transaminase and alkaline phosphatase over past few years. The alkaline phosphatase has been normalized since January 2023. The etiology of chronic abnormalities of liver function test was unknown to me. It might be due to fatty liver or other etiologies. Currently I would check the patient viral hepatitis panel, hemochromatosis, Erik disease, alpha-1 antitrypsin deficiency etc. Problem List/Past Medical History Ongoing Anxiety Chronic constipation Chronic diastolic HF (heart failure) Clotting disorder Depression DVT - Deep vein thrombosis Dyslipidemia Dyspnea on exertion Dysuria Edema Elevated fasting glucose Factor V deficiency Generalized weakness GI bleed Hallucinations History of ESBL E. coli infection Ischemic colitis Major depressive disorder, severe Migraine Nausea Necrotizing pancreatitis Palpitation Pancreatitis Psychosis Pulmonary emboli Recurrent pancreatitis Recurrent UTI Right ear impacted cerumen Screening for breast cancer Screening for ischemic heart disease Seizure disorder Small bowel obstruction Stroke Vitamin D deficiency Weight gain Historical Bipolar 1 disorder Elevated liver enzymes High blood pressure History of MRSA infection Preoperative clearance Procedure/Surgical History Prescription event monitorin08/31/20 Cardiovascular stress testin08/07/20 Cardiovascular stress testin08/07/20 Cardiac echo: 02/14/20 Cardiac echo: 01/20/18 Cardiac echo: 01/17/18 Abdominal hysterectomy section Appendectomy Cholecystectomy section Filter Tonsillectomy ERCP Medications Inpatient acetaminophen, 650 mg= 2 tab(s), Oral, q6h, PRN acetaminophen, 650 mg= 2 tab(s), Oral, q4h, PRN clonazePAM, 0.5 mg= 1 tab(s), Oral, qDay, PRN DuoNeb, 3 mL, Inhalation, q2hRT, PRN hydroCHLOROthiazide, 25 mg= 1 tab(s), Oral, qDay HYDROmorphone, 0.5 mg= 0.5 mL, IV Push, q2h, PRN lacosamide, 200 mg= 2 tab(s), Oral, qPM lacosamide, 100 mg= 1 tab(s), Oral, qAM LR 1,000 mL, 1000 mL, Intravenous melatonin, 3 mg= 1 tab(s), Oral, qHS, PRN methenamine hippurate 1 g oral tablet, 1 gram(s)= 1 tab(s), Oral, qDay metoprolol succinate 25 mg oral TABLET extended release, 25 mg= 1 tab(s), Oral, qDay Miralax Powder Packet, 17 gram(s)= 15 mL, Oral, BID, PRN Miralax Powder Packet, 17 gram(s)= 15 mL, Oral, BID ondansetron, 4 mg= 2 mL, IV Push, q4h, PRN pantoprazole, 40 mg= 1 tab(s), Oral, BIDAC Percocet 325/5, 1 tab(s), Oral, q4h, PRN rivaroxaban, 10 mg= 1 tab(s), Oral, with supper rOPINIRole 0.5 mg oral tablet, 0.5 mg= 1 tab(s), Oral, BID valACYclovir, 500 mg= 1 tab(s), Oral, qDay venlafaxine extended release capsule, 150 mg= 1 cap(s), Oral, qDay venlafaxine extended release capsule, 75 mg= 1 cap(s), Oral, qDay Home APAP/butalbital/caffeine 325-50-40 mg oral tablet (Fioricet), 1 tab(s), Oral, q4h, PRN, Not taking APAP/butalbital/caffeine 325-50-40 mg oral tablet (Fioricet), 1 tab(s), Oral, q4h, PRN cholecalciferol 1250 mcg (50,000 intl units) oral capsule, 1250 mcg= 1 cap(s), Oral, Tuesday, 3 refills clonazePAM 0.5 mg oral tablet, 0.5 mg= 1 tab(s), Oral, qDay, PRN cloNIDine 0.2 mg oral tablet, 0.2 mg= 1 tab(s), Oral, qDay, 1 refills, Still taking, not as prescribed: Patient taking 0.2mg at bedtime. dicyclomine 10 mg oral capsule, 10 mg= 1 cap(s), Oral, QID, Not taking fenofibrate 145 mg oral tablet, 145 mg= 1 tab(s), Oral, qDay, 3 refills, Still taking, not as prescribed: Patient takes 145mg in PM furosemide 40 mg oral tablet, 40 mg= 1 tab(s), Oral, qDay, 1 refills hydroCHLOROthiazide 25 mg oral tablet, 25 mg= 1 tab(s), Oral, qDay, 2 refills lacosamide 100 mg oral tablet, 100 mg= 1 tab(s), Oral, qAM lacosamide 100 mg oral tablet, 200 mg= 2 tab(s), Oral, qPM lactulose 10 g/15 mL oral syrup, 10 gram(s)= 15 mL, Oral, BID, PRN Linzess 290 mcg oral capsule, 290 mcg= 1 cap(s), Oral, qDay, 1 refills Macrobid 100 mg oral capsule, 100 mg= 1 cap(s), Oral, qDay, PRN magnesium salicylate 600 mg oral tablet, 600 mg= 1 tab(s), Oral, q4h methenamine hippurate 1 g oral tablet, 1 gram(s)= 1 tab(s), Oral, qDay methenamine hippurate 1 g oral tablet, 1 gram(s)= 1 tab(s), Oral, qDay, 1 refills metoprolol succinate 25 mg oral TABLET extended release, 25 mg= 1 tab(s), Oral, qDay, 3 refills omeprazole 40 mg oral delayed release capsule, 40 mg= 1 cap(s), Oral, BID, 1 refills ondansetron 8 mg oral tablet, disintegrating, 8 mg= 1 tab(s), Oral, TID potassium chloride 20 mEq oral tablet, extended release, 20 mEq= 1 tab(s), Oral, TID, 1 refills promethazine 25 mg oral tablet, 25 mg= 1 tab(s), Oral, q6h, PRN rOPINIRole 0.5 mg oral tablet, 0.5 mg= 1 tab(s), Oral, BID, 1 refills valACYclovir 500 mg oral tablet, 500 mg= 1 tab(s), Oral, qDay, 3 refills venlafaxine 150 mg oral capsule, extended release, 150 mg= 1 cap(s), Oral, qDay, 1 refills venlafaxine 75 mg oral capsule, extended release, 75 mg= 1 cap(s), Oral, qDay, 1 refills Vitamin C 1000 mg oral tablet, 1000 mg= 1 tab(s), Oral, qDay Xarelto 10 mg oral tablet, 10 mg= 1 tab(s), Oral, qDay, 1 refills Allergies penicillin (Rash) Neurontin (Vomiting) sulfa drug Social History Smoking Status - 07/06/2018 Current every day smoker Alcohol - Low Risk, 09/16/2017 Use: Past., 07/18/2019 Employment/School Status: Unemployed., 03/07/2020 Exercise Days per week: 1-2 times/week., 03/07/2020 Home/Environment Domestic Concerns: Denies. Living situation: Home/Independent. 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 Lives In: 1st floor bedroom, 1st floor bathroom, 2 steps to enter home. Current Home Treatments None. Professional Skilled Services or Special Community Resources None. Financial concerns: No. Marital Status: Unmarried., 03/07/2023 Nutrition/Health Type of diet: Regular. Appetite Good. Eating Difficulties None. Enteral Feedings No. TPN Feedings No. Skin Breakdown No. Caffeine intake amount: soda x 2 servings / daily., 05/29/2021 Sexual Self described orientation: Straight or heterosexual., 03/07/2023 Substance Abuse - High Risk, 10/19/2022 Use: Current. Type: Marijuana. Frequency: 1-2 times per week., 10/19/2022 Use: Past. Type: Prescription medications., 04/06/2021 Tobacco - High Risk, 01/04/2019 Tobacco Use: use a vape pen uses it daily. Type: Electronic Cigarettes., 01/25/2019 Family History HTN - Hypertension: Mother. Heart disease: Father. Hyperlipidemia: Mother. Immunizations No qualifying data available. Digitally Signed by MATT LOVELACE MD on 04/02/2023 09:14 AM [facility] 04-02-2023 Note Chief Complaint Transition plan Transitional Action Points Abdominal pain with underlying recurrent pancreatitis Followed by GI team, plans for transferring to [facility] for EUS No noted hospitalizations within the last 12 months Patient is from home, functional status independent baseline with ADLs and IADLs Has been feeling weaker progressively over the last year with recurring episodes of pancreatitis, states difficult to stand for long periods of time including to even shower at this point, has issues with walking for any period of time Do recommend therapy services for weakness Plan of care at this point is for patient to transfer to outside facility, will likely need ongoing therapy services for weakness Assessment/Plan Weakness Recurrent pancreatitis Readmission Risk Points Full code Recurrent pancreatitis Weakness Chronic diastolic heart failure History of CVA History of seizure disorder History of DVT History of GIB History of Present illness Patient is a 47-year-old female admitted to [facility] with pancreatitis. Prior to her hospital admission, patient resides at home with her significant other. Patient reports having increased weakness progressing over the past year. She denies any falls. She states she does have difficulty standing to take a shower secondary to feeling weak. She denies use of assistive devices and is inquiring on utilizing a shower chair. No falls reported. Review of Symptoms General: Denies fever or chills Musculoskeletal: weakness Neuro: Denies dizziness Physical Exam General: No acute distress Musculoskeletal: Weakness Neurological: No tremors or focal deficit Psych: mood cooperative Vitals Signs(Last 24 hrs)__Last Charted Minimum Maxi mum Temp36.6(APR 01 21:45)36.6(APR 01 21:45)37.1(APR 01 14:41) Resp Rate18(APR 01 21:45)16(APR 01 14:41)18(APR 01 13:46) ZSW050(APR 02 00:00)117(APR 02 00:00)129(APR 01 18:43) DBP75(APR 02 00:00)65(APR 01 14:41)76(APR 01 18:43) Problem List/Past Medical History History of ESBL E. coli infection Abdominal pain Anxiety Chronic constipation Chronic diastolic HF (heart failure) Clotting disorder DVT - Deep vein thrombosis Depression Dyslipidemia Dyspnea on exertion Dysuria Edema Elevated fasting glucose Factor V deficiency GI bleed Generalized weakness Hallucinations Ischemic colitis Major depressive disorder, severe Migraine Mouth pain Nausea Necrotizing pancreatitis Palpitation Pancreatitis Partial seizure Psychosis Pulmonary emboli Recurrent UTI Recurrent pancreatitis Right ear impacted cerumen Screening for breast cancer Screening for ischemic heart disease Seizure disorder Small bowel obstruction Stroke Tobacco use Vitamin D deficiency Weight gain High blood pressure Elevated liver enzymes Preoperative clearance Bipolar 1 disorder History of MRSA infection Procedure/ Surgical History Prescription event monitorin08/31/20 Cardiovascular stress testin08/07/20 Cardiovascular stress testin08/07/20 Cardiac echo: 02/14/20 Cardiac echo: 01/20/18 Cardiac echo: 01/17/18 Abdominal hysterectomy section Appendectomy Cholecystectomy section Filter Tonsillectomy ERCP Medication List Active Medications Ordered acetaminophen: 650 mg, 2 tab(s), Oral, q6h, PRN: Temperature greater than 38.3 degrees C. acetaminophen: 650 mg, 2 tab(s), Oral, q4h, PRN: Pain, scale 1-3. acetaminophen-oxyCODONE: 1 tab(s), Oral, q4h, PRN: Pain, scale 4-6. albuterol-ipratropium: 3 mL, Inhalation, q2hRT, PRN: Wheezing. clonazePAM: 0.5 mg, 1 tab(s), Oral, qDay, PRN: Anxiety. hydroCHLOROthiazide: 25 mg, 1 tab(s), Oral, qDay. HYDROmorphone: 0.5 mg, 0.5 mL, IV Push, q2h, PRN: Pain, scale 7-10. lacosamide: 200 mg, 2 tab(s), Oral, qPM. lacosamide: 100 mg, 1 tab(s), Oral, qAM. Lactated Ringers Infusion 1,000 mL: 80 mL/hr, Intravenous. melatonin: 3 mg, 1 tab(s), Oral, qHS, PRN: Sleep. methenamine: 1 gram(s), 1 tab(s), Oral, qDay. metoprolol: 25 mg, 1 tab(s), Oral, qDay. ondansetron: 4 mg, 2 mL, IV Push, q4h, PRN: Nausea. pantoprazole: 40 mg, 1 tab(s), Oral, BIDAC. polyethylene glycol 3350: 17 gram(s), 15 mL, Oral, BID. polyethylene glycol 3350: 17 gram(s), 15 mL, Oral, BID, PRN: Constipation. rivaroxaban: 10 mg, 1 tab(s), Oral, with supper. rOPINIRole: 0.5 mg, 1 tab(s), Oral, BID. valACYclovir: 500 mg, 1 tab(s), Oral, qDay. venlafaxine: 150 mg, 1 cap(s), Oral, qDay. venlafaxine: 75 mg, 1 cap(s), Oral, qDay. Prescribed APAP/butalbital/caffeine: 1 tab(s), Oral, q4h, in absence of pcp, PRN: as needed, 180 tab(s), 0 Refill(s). cholecalciferol: 1,250 mcg, 1 cap(s), Oral, Tuesday, for 90 day(s), 13 cap(s), 3 Refill(s). cloNIDine: 0.2 mg, 1 tab(s), Oral, qDay, for 90 day(s), 90 tab(s), 1 Refill(s). dicyclomine: 10 mg, 1 cap(s), Oral, QID, for 10 day(s), 40 cap(s), 0 Refill(s). fenofibrate: 145 mg, 1 tab(s), Oral, qDay, 90 tab(s), 3 Refill(s). furosemide: 40 mg, 1 tab(s), Oral, qDay, for 90 day(s), 90 tab(s), 1 Refill(s). hydroCHLOROthiazide: 25 mg, 1 tab(s), Oral, qDay, 90 tab(s), 2 Refill(s). linaclotide: 290 mcg, 1 cap(s), Oral, qDay, for 90 day(s), 90 cap(s), 1 Refill(s). methenamine: 1 gram(s), 1 tab(s), Oral, qDay, for 90 day(s), 90 tab(s), 1 Refill(s). metoprolol: 25 mg, 1 tab(s), Oral, qDay, for 30 day(s), 30 tab(s), 3 Refill(s). omeprazole: 40 mg, 1 cap(s), Oral, BID, for 90 day(s), 180 cap(s), 1 Refill(s). ondansetron: 8 mg, 1 tab(s), Oral, TID, for 10 day(s), 30 tab(s), 0 Refill(s). potassium chloride: 20 mEq, 1 tab(s), Oral, TID, for 90 day(s), 270 tab(s), 1 Refill(s). promethazine: 25 mg, 1 tab(s), Oral, q6h, PRN: for nausea/vomiting, 10 tab(s), 0 Refill(s). rivaroxaban: 10 mg, 1 tab(s), Oral, qDay, for 90 day(s), 90 tab(s), 1 Refill(s). rOPINIRole: 0.5 mg, 1 tab(s), Oral, BID, for 90 day(s), 180 tab(s), 1 Refill(s). valACYclovir: 500 mg, 1 tab(s), Oral, qDay, for 90 day(s), 90 tab(s), 3 Refill(s). venlafaxine: 75 mg, 1 cap(s), Oral, qDay, for 90 day(s), for a total of 225 mg/day., 90 cap(s), 1 Refill(s). venlafaxine: 150 mg, 1 cap(s), Oral, qDay, for 90 day(s), for a total of 225 mg/day., 90 cap(s), 1 Refill(s). Documented APAP/butalbital/caffeine: 1 tab(s), Oral, q4h, PRN: abdominal discomfort. ascorbic acid: 1,000 mg, 1 tab(s), Oral, qDay. clonazePAM: 0.5 mg, 1 tab(s), Oral, qDay, PRN: Anxiety. lacosamide: 100 mg, 1 tab(s), Oral, qAM. lacosamide: 200 mg, 2 tab(s), Oral, qPM. lactulose: 10 gram(s), 15 mL, Oral, BID, PRN: as needed for constipation. magnesium salicylate: 600 mg, 1 tab(s), Oral, q4h. methenamine: 1 gram(s), 1 tab(s), Oral, qDay. nitrofurantoin: 100 mg, 1 cap(s), Oral, qDay, Take with food, PRN: Symptoms of urinary discomfort, 30 cap(s), 2 Refill(s). Medications Inactivated in the Last 72 Hours acetaminophen-oxyCODONE: 1 tab(s), Oral, q6hr, for 3 day(s), PRN: for pain, 12 tab(s), 0 Refill(s). albuterol-ipratropium: 3 mL, Inhalation, q4hRT, PRN: Shortness of breath or wheezing. albuterol-ipratropium: Miscellaneous, Once. clonazePAM: 0.5 mg, 1 tab(s), Oral, qDay, PRN: Anxiety. cloNIDine: 0.2 mg, 2 tab(s), Oral, qDay. diphenhydrAMINE: 25 mg, 1 tab(s), Oral, Once. fenofibrate: 160 mg, 1 tab(s), Oral, qDay. HYDROmorphone: 1 mg, 1 mL, IV Push, q3h, PRN: Pain, scale 7-10. HYDROmorphone: 0.5 mg, 0.5 mL, IV Push, q3h, PRN: Pain, scale 4-6. ketorolac: 15 mg, 0.5 mL, IV Push, Once. lacosamide: 200 mg, 4 tab(s), Oral, qPM. lacosamide: 100 mg, 2 tab(s), Oral, qAM. Lactated Ringers Infusion 1,000 mL: 200 mL/hr, Intravenous. Lactated Ringers Infusion 1,000 mL: 150 mL/hr, Intravenous. lactulose: 10 gram(s), 15 mL, Oral, BID, PRN: Constipation. melatonin: 9 mg, 3 tab(s), Oral, qHS, PRN: Sleep. metoprolol: 25 mg, 0.5 tab(s), Oral, qDay. morphine: 4 mg, 1 mL, IV Push, q4h, PRN: Pain, scale 7-10. pantoprazole: 40 mg, IV Push, qDayAC. rivaroxaban: 10 mg, 1 tab(s), Oral, qDay. rOPINIRole: 0.5 mg, 0.5 tab(s), Oral, BID. Sodium Chloride 0.9% intravenous solution 1,000 mL: 150 mL/hr, Intravenous. Sodium Chloride 0.9% intravenous solution 1,000 mL: 75 mL/hr, Intravenous. valACYclovir: 500 mg, 1 tab(s), Oral, qDay. venlafaxine: 225 mg, 3 cap(s), Oral, qDay. venlafaxine: 75 mg, 1 cap(s), Oral, qDay. venlafaxine: 150 mg, 1 cap(s), Oral, qDay. Allergies penicillin (Rash) Neurontin (Vomiting) sulfa drug Social Hx Alcohol Risk Assessment: Low Risk; Details: Use: Past. Employment/School Details: Status: Unemployed. Exercise Details: Days per week: 1-2 times/week. Home/Environment Details: Domestic Concerns: Denies. Living situation: Home/Independent. 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 Lives In: 1st floor bedroom, 1st floor bathroom, 2 steps to enter home. Current Home Treatments None. Professional Skilled Services or Special Community Resources None. Financial concerns: No. Marital Status: Unmarried. Nutrition/Health Details: Type of diet: Regular. Appetite Good. Eating Difficulties None. Enteral Feedings No. TPN Feedings No. Skin Breakdown No. Caffeine intake amount: soda x 2 servings / daily. Sexual Details: Self described orientation: Straight or heterosexual. Substance Abuse Risk Assessment: High Risk; Details: Use: Current. Type: Marijuana. Frequency: 1-2 times per week. Details: Use: Past. Type: Prescription medications. Tobacco Risk Assessment: High Risk; Details: Tobacco Use: use a vape pen uses it daily. Type: Electronic Cigarettes. Family Medical Hx Mother: HTN - Hypertension; Hyperlipidemia Father: Heart disease Code Status Code Status - Ordered -- 04/01/23 14:39:00 EDT, Full Code, Constant Order Medications reviewed and up to date. Hugo Kirkland LPN, am scribing for Carlene Moreno NP, in the presence of Tasha Moreno CNP. Carlene Kirkland NP, personally performed the services described in this documentation, as scribed byHugo LPN in my presence and it is both accurate and complete. This document is transcribed using voice recognition software and may contain typographical errors. Digitally Signed by CARLENE MORENO on 04/03/2023 12:48 PM [facility] 04-01-2023 History and physical note History of Present Illness Patient is a 47YOF w PMH of CVA, seizure disorder, FVL and 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 She was a binge drinker until 2011 and started having episodes of pancreatitis in 2012 and has been admitted multiple times for the same. She also has a history of narcotic dependence previously on buprenorphine/naloxone combination therapy. She presented to [facility] with abdominal pain and mild elevation in lipase and CT scan consistent with prior pancreatitis and was admitted. She continued to have significant pain and no real causal factor was found for pancreatitis. Throughout this workup she had an IgG4 level that came back marginally positive. Given her intractable symptoms and possible etiology of autoimmune, she was transferred to [facility] for GI evaluation. Here the patient is stating that she still has no appetite and has pain with PO intake. She also reports some nausea with PO intake. States pain is located in the center of her abdomen and does radiate to the back. She has had some relief with morphine and hydromorphone. No CP or palpitation. No SOB. Review of Systems Complete detailed review of systems obtained and all pertinent positives and negatives are noted in the history of present illness. Physical Exam Vitals and Measurements T: 37.1 C (Oral) TMIN: 36.8 C (Oral) TMAX: 37.1 C (Oral) HR: 74 RR: 16 BP: 129/76 SpO2: 94% HT: 160.0 cm WT: 100.2 kg BMI: 39.14 Weight Dosing Weight: 100.2 kg (04/01/23) Physical Examination General: Patient does not appear uncomfortable on exam. She is alert and appropriate. Neck: Supple. Cardiovascular: S1 S2 normal. No extra-audible heart tones. Respiratory: Bilaterally clear breath sounds with no crepitation or wheeze. Abdominal: Soft, no tenderness when distracted. Extremities: No edema. Adequate peripheral circulation. Neurological: Grossly intact without focal deficit. Appears baseline Lab Results No 36 Hour Lab Data Assessment/Plan 1. Acute pancreatitis, Recurrent pancreatitis 2. DVT - Deep vein thrombosis 3. Abdominal pain 4. Nausea 5. Factor V Leiden 6. Anxiety 7. Partial seizure 9. Stroke Patient presents with intractable abdominal pain and nausea. She does not appear uncomfortable on exam and has a benign abdominal exam when distracted. She also has a history of narcotic dependence on zubsolv therapy. Having said this, she has a CT scan consistent with sequelae of pancreatitis, had an elevation in lipase, and has a mild IgG4 elevation. We will treat as pancreatitis and ask for GI evaluation as well given this complex picture. Clear liquid diet has been ordered. IVF, but at decreased rate as she has been treated for several days already. Will continue her home medications for seizure and anticoagulation. Patient is FULL CODE Orders: acetaminophen, Start: 04/01/23 14:39:00 EDT, Dose = 650 mg, = 2 tab(s), Oral, q6h, PRN, Temperature greater than 38.3 degrees C, 04/01/23 14:39:00 EDT acetaminophen, Start: 04/01/23 14:39:00 EDT, Dose = 650 mg, = 2 tab(s), Oral, q4h, PRN, Pain, scale 1-3, 04/01/23 14:39:00 EDT acetaminophen-oxyCODONE, Start: 04/01/23 14:39:00 EDT, Dose = 1 tab(s), Tab, Oral, q4h, PRN, Pain, scale 4-6, 04/01/23:39:00 EDT albuterol-ipratropium, Start: 04/01/23 1439:00 EDT, Dose = 3 mL, Soln, Inhalation, q2hRT, PRN, Wheezing, 04/01/2339:00 EDT clonazePAM, Start: 04/01/23 16:23:00 EDT, Dose = 0.5 mg, = 1 tab(s), Oral, qDay, PRN, Anxiety, 04/01/23 16:23:00 EDT hydroCHLOROthiazide, Start: 04/01/23 16:23:00 EDT, Dose = 25 mg, = 1 tab(s), Oral, qDay, 04/01/23 16:23:00 EDT HYDROmorphone, Start: 04/01/23 14:39:00 EDT, Dose = 0.5 mg, = 0.5 mL, IV Push, q2h, PRN, Pain, scale 7-10, 0, 04/01/23 14:39:00 EDT lacosamide, Start: 04/01/23 22:00:00 EDT, Dose = 200 mg, = 1 tab(s), Oral, qPM, 04/01/23 16:23:00 EDT lacosamide, Start: 04/01/23 16:23:00 EDT, Dose = 100 mg, = 1 tab(s), Oral, qAM, 04/01/23 16:23:00 EDT Lactated Ringers Infusion 1,000 mL, Start: 04/01/23 14:39:00 EDT, Rate: 80 mL/hr, 04/01/23 14:39:00 EDT melatonin, Start: 04/01/23 14:39:00 EDT, Dose = 3 mg, = 1 tab(s), Oral, qHS, PRN, Sleep, May repeat x 1 dose, 04/01/23 14:39:00 EDT methenamine, Start: 04/01/23 16:24:00 EDT, Dose = 1 gram(s), = 1 tab(s), Oral, qDay, 04/01/23 16:24:00 EDT metoprolol, Start: 04/01/23 16:24:00 EDT, Dose = 25 mg, = 1 tab(s), Oral, qDay, 04/01/23 16:24:00 EDT ondansetron, Start: 04/01/23 14:39:00 EDT, Dose = 4 mg, = 2 mL, IV Push, q4h, PRN, Nausea, 04/01/23 14:39:00 EDT pantoprazole, Start: 04/01/23 16:24:00 EDT, Dose = 40 mg, = 1 tab(s), Oral, BIDAC, 04/01/23 16:24:00 EDT polyethylene glycol 3350, Start: 04/01/23 14:39:00 EDT, Dose = 17 gram(s), = 15 mL, Oral, BID, PRN, Constipation, 04/01/23 14:39:00 EDT polyethylene glycol 3350, Start: 04/01/23 20:00:00 EDT, Dose = 17 gram(s), = 15 mL, Oral, BID, 04/01/23 16:24:00 EDT rivaroxaban, Start: 04/01/23 18:35:00 EDT, Dose = 10 mg, = 1 tab(s), Oral, with supper, Indication for Use Treatment of VTE/PE ( Chronic), 04/01/23 18:35:00 EDT rOPINIRole, Start: 04/01/23 21:00:00 EDT, Dose = 0.5 mg, = 1 tab(s), Oral, BID, 04/01/23 16:26:00 EDT valACYclovir, Start: 04/01/23 16:26:00 EDT, Dose = 500 mg, = 1 tab(s), Oral, qDay, 04/01/23 16:26:00 EDT venlafaxine, Start: 04/01/23 16:31:00 EDT, Dose = 150 mg, = 1 cap(s), Oral, qDay, 04/01/23 16:31:00 EDT venlafaxine, Start: 04/01/23 16:31:00 EDT, Dose = 75 mg, = 1 cap(s), Oral, qDay, 04/01/23 16:31:00 EDT Activity as tolerated Admit to Inpatient Aqua K Machine w/Large pad (48282) Code Status Consult to Physician Diet Order ROUTINE EMERGENCY TREATMENT - Full Code Problem List/Past Medical History Ongoing Anxiety Chronic constipation Chronic diastolic HF (heart failure) Clotting disorder Depression DVT - Deep vein thrombosis Dyslipidemia Dyspnea on exertion Dysuria Edema Elevated fasting glucose Factor V deficiency Generalized weakness GI bleed Hallucinations History of ESBL E. coli infection Ischemic colitis Major depressive disorder, severe Migraine Nausea Necrotizing pancreatitis Palpitation Pancreatitis Psychosis Pulmonary emboli Recurrent pancreatitis Recurrent UTI Right ear impacted cerumen Screening for breast cancer Screening for ischemic heart disease Seizure disorder Small bowel obstruction Stroke Vitamin D deficiency Weight gain Historical Bipolar 1 disorder Elevated liver enzymes High blood pressure History of MRSA infection Preoperative clearance Procedure/Surgical History Prescription event monitorin08/31/20 Cardiovascular stress testin08/07/20 Cardiovascular stress testin08/07/20 Cardiac echo: 02/14/20 Cardiac echo: 01/20/18 Cardiac echo: 01/17/18 Abdominal hysterectomy section Appendectomy Cholecystectomy section Filter Tonsillectomy ERCP Medications Home Medications (28) Active APAP/butalbital/caffeine 325-50-40 mg oral tablet (Fioricet) 1 tab(s), PRN, Oral, q4h APAP/butalbital/caffeine 325-50-40 mg oral tablet (Fioricet) 1 tab(s), PRN, Oral, q4h cholecalciferol 1250 mcg (50,000 intl units) oral capsule 1,250 mcg = 1 cap(s), Oral, Tuesday clonazePAM 0.5 mg oral tablet 0.5 mg = 1 tab(s), PRN, Oral, qDay cloNIDine 0.2 mg oral tablet 0.2 mg = 1 tab(s), Oral, qDay dicyclomine 10 mg oral capsule 10 mg = 1 cap(s), Oral, QID fenofibrate 145 mg oral tablet 145 mg = 1 tab(s), Oral, qDay furosemide 40 mg oral tablet 40 mg = 1 tab(s), Oral, qDay hydroCHLOROthiazide 25 mg oral tablet 25 mg = 1 tab(s), Oral, qDay lacosamide 100 mg oral tablet 100 mg = 1 tab(s), Oral, qAM lacosamide 100 mg oral tablet 200 mg = 2 tab(s), Oral, qPM lactulose 10 g/15 mL oral syrup 10 gram(s) = 15 mL, PRN, Oral, BID Linzess 290 mcg oral capsule 290 mcg = 1 cap(s), Oral, qDay Macrobid 100 mg oral capsule 100 mg = 1 cap(s), PRN, Oral, qDay magnesium salicylate 600 mg oral tablet 600 mg = 1 tab(s), Oral, q4h methenamine hippurate 1 g oral tablet 1 gram(s) = 1 tab(s), Oral, qDay methenamine hippurate 1 g oral tablet 1 gram(s) = 1 tab(s), Oral, qDay metoprolol succinate 25 mg oral TABLET extended release 25 mg = 1 tab(s), Oral, qDay omeprazole 40 mg oral delayed release capsule 40 mg = 1 cap(s), Oral, BID ondansetron 8 mg oral tablet, disintegrating 8 mg = 1 tab(s), Oral, TID potassium chloride 20 mEq oral tablet, extended release 20 mEq = 1 tab(s), Oral, TID promethazine 25 mg oral tablet 25 mg = 1 tab(s), PRN, Oral, q6h rOPINIRole 0.5 mg oral tablet 0.5 mg = 1 tab(s), Oral, BID valACYclovir 500 mg oral tablet 500 mg = 1 tab(s), Oral, qDay venlafaxine 150 mg oral capsule, extended release 150 mg = 1 cap(s), Oral, qDay venlafaxine 75 mg oral capsule, extended release 75 mg = 1 cap(s), Oral, qDay Vitamin C 1000 mg oral tablet 1,000 mg = 1 tab(s), Oral, qDay Xarelto 10 mg oral tablet 10 mg = 1 tab(s), Oral, qDay Allergies penicillin (Rash) Neurontin (Vomiting) sulfa drug Social History Smoking Status - 07/06/2018 Current every day smoker Alcohol - Low Risk, 09/16/2017 Use: Past., 07/18/2019 Employment/School Status: Unemployed., 03/07/2020 Exercise Days per week: 1-2 times/week., 03/07/2020 Home/Environment Domestic Concerns: Denies. Living situation: Home/Independent. 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 Lives In: 1st floor bedroom, 1st floor bathroom, 2 steps to enter home. Current Home Treatments None. Professional Skilled Services or Special Community Resources None. Financial concerns: No. Marital Status: Unmarried., 03/07/2023 Nutrition/Health Type of diet: Regular. Appetite Good. Eating Difficulties None. Enteral Feedings No. TPN Feedings No. Skin Breakdown No. Caffeine intake amount: soda x 2 servings / daily., 05/29/2021 Sexual Self described orientation: Straight or heterosexual., 03/07/2023 Substance Abuse - High Risk, 10/19/2022 Use: Current. Type: Marijuana. Frequency: 1-2 times per week., 10/19/2022 Use: Past. Type: Prescription medications., 04/06/2021 Tobacco - High Risk, 01/04/2019 Tobacco Use: use a vape pen uses it daily. Type: Electronic Cigarettes., 01/25/2019 Family History HTN - Hypertension: Mother. Heart disease: Father. Hyperlipidemia: Mother. Immunizations No qualifying data available. Code Status Code Status - Ordered -- 04/01/23 14:39:00 EDT, Full Code, Constant Order Digitally Signed by MOLINA VALLE MD FACP on 04/01/2023 07:13 PM [facility] 04-01-2023 Evaluation + Plan note Extrac deyanira from: Title:History and Physical Author:MOLINA VALLE MD FACP Date:04/01/23 1. Acute pancreatitis, Recur rent pancreatitis 2. DVT - Deep vein thrombosis 3. Abdominal pain 4. Nausea 5. Factor V Leiden 6. Anxiety 7. Partial seizure 9. Stroke Patient presents with intractable abdominal pain and nausea. She does not appear uncomfortable on exam and has a benign abdominal exam when distracted. She also has a history of narcotic dependence on zubsolv therapy. Having said this, she has a CT scan consistent with sequelae of pancreatitis, had an elevation in lipase, and has a mild IgG4 elevation. We will treat as pancreatitis and ask for GI evaluation as well given this complex picture. Clear liquid diet has been ordered. IVF, but at decreased rate as she has been treated for several days already. Will continue her home medications for seizure and anticoagulation. Patient is FULL CODE Orders: acetaminophen, Start: 04/01/23 14:39:00 EDT, Dose = 650 mg, = 2 tab(s), Oral, q6h, PRN, Temperature greater than 38.3 degrees C, 04/01/2339:00 EDT acetaminophen, Start: 04/01/2339:00 EDT, Dose = 650 mg, = 2 tab(s), Oral, q4h, PRN, Pain, scale 1-3, 04/01/2339:00 EDT acetaminophen-oxyCODONE, Start: 04/01/2339:00 EDT, Dose = 1 tab(s), Tab, Oral, q4h, PRN, Pain, scale 4-6, 04/01/23:39:00 EDT albuterol-ipratropium, Start: 04/01/23 1439:00 EDT, Dose = 3 mL, Soln, Inhalation, q2hRT, PRN, Wheezing, 04/01/23:39:00 EDT clonazePAM, Start: 04/01/23 16:23:00 EDT, Dose = 0.5 mg, = 1 tab(s), Oral, qDay, PRN, Anxiety, 04/01/23 16:23:00 EDT hydroCHLOROthiazide, Start: 04/01/23 16:23:00 EDT, Dose = 25 mg, = 1 tab(s), Oral, qDay, 04/01/23 16:23:00 EDT HYDROmorphone, Start: 04/01/23 14:39:00 EDT, Dose = 0.5 mg, = 0.5 mL, IV Push, q2h, PRN, Pain, scale 7-10, 0, 04/01/23 14:39:00 EDT lacosamide, Start: 04/01/23 22:00:00 EDT, Dose = 200 mg, = 1 tab(s), Oral, qPM, 04/01/23 16:23:00 EDT lacosamide, Start: 04/01/23 16:23:00 EDT, Dose = 100 mg, = 1 tab(s), Oral, qAM, 04/01/23 16:23:00 EDT Lactated Ringers Infusion 1,000 mL, Start: 04/01/23 14:39:00 EDT, Rate: 80 mL/hr, 04/01/23:39:00 EDT melatonin, Start: 04/01/2339:00 EDT, Dose = 3 mg, = 1 tab(s), Oral, qHS, PRN, Sleep, May repeat x 1 dose, 04/01/23 14:39:00 EDT methenamine, Start: 04/01/23 16:24:00 EDT, Dose = 1 gram(s), = 1 tab(s), Oral, qDay, 04/01/23 16:24:00 EDT metoprolol, Start: 04/01/23 16:24:00 EDT, Dose = 25 mg, = 1 tab(s), Oral, qDay, 04/01/23 16:24:00 EDT ondansetron, Start: 04/01/23 14:39:00 EDT, Dose = 4 mg, = 2 mL, IV Push, q4h, PRN, Nausea, 04/01/23 14:39:00 EDT pantoprazole, Start: 04/01/23 16:24:00 EDT, Dose = 40 mg, = 1 tab(s), Oral, BIDAC, 04/01/23 16:24:00 EDT polyethylene glycol 3350, Start: 04/01/23 14:39:00 EDT, Dose = 17 gram(s), = 15 mL, Oral, BID, PRN, Constipation, 04/01/23 14:39:00 EDT polyethylene glycol 3350, Start: 04/01/23 20:00:00 EDT, Dose = 17 gram(s), = 15 mL, Oral, BID, 04/01/23 16:24:00 EDT rivaroxaban, Start: 04/01/23 18:35:00 EDT, Dose = 10 mg, = 1 tab(s), Oral, with supper, Indication for Use Treatment of VTE/PE ( Chronic), 04/01/23 18:35:00 EDT rOPINIRole, Start: 04/01/23 21:00:00 EDT, Dose = 0.5 mg, = 1 tab(s), Oral, BID, 04/01/23 16:26:00 EDT valACYclovir, Start: 04/01/23 16:26:00 EDT, Dose = 500 mg, = 1 tab(s), Oral, qDay, 04/01/23 16:26:00 EDT venlafaxine, Start: 04/01/23 16:31:00 EDT, Dose = 150 mg, = 1 cap(s), Oral, qDay, 04/01/23 16:31:00 EDT venlafaxine, Start: 04/01/23 16:31:00 EDT, Dose = 75 mg, = 1 cap(s), Oral, qDay, 04/01/23 16:31:00 EDT Activity as tolerated Admit to Inpatient Aqua K Machine w/Large pad (68008) Code Status Consult to Physician Diet Order ROUTINE EMERGENCY TREATMENT - Full Code Future Appointments Appointment Date:04/18/2023 03:30:00 PM Scheduled Provider:CJ RIVERA Location:[facility] Appointment Type:PC OV TCM 30 Diagnostic Tests Pending * Hepatitis B Core Antibody Total 04/02/23 * Antinuclear Antibody Screen, Serum 04/02/23 * Smooth Muscle Antibody Screen 04/02/23 * Mitochondrial Antibody 04/02/23 Future Scheduled Tests Laboratory* Basic Metabolic Panel 12/07/22 * Magnesium Level 12/07/22 * Complete Blood Count 12/07/22 * Lipid Profile 06/09/22 * Vitamin D Level 06/09/22 * Complete Metabolic Panel 06/09/22 * N-Terminal proBNP 12/07/22 [facility] 07-12-2023 Note. MICRO - Microbiology PROCEDURE: Urine Culture [*1] SOURCE: Urine BODY SITE: COLLECTED DATE/TIME: 03/28/2023 19:18 EDT RECEIVED DATE/TIME: 03/29/2023 14:30 EDT START DATE/TIME: 03/29/2023 14:30 EDT FREE TEXT SOURCE: FINAL REPORTS Final Report [] Verified Date/Time/Personnel: 03/30/2023 14:27 EDT 50,000 - 100,000 cfu/ml Group B Beta Hemolytic Strep (Strep agalactiae) Sensitivity testing is not recommended for one of the following reasons: 1. Established susceptibility patterns are available or 2. Interpretative criteria are not available. Performing Locations *1: This test was performed at: [facility], [address] [place] [address], [facility] , [facility])03-11-2023 Hospital Discharge instructions Patient Education 03/11/2023 14:46:12 Acute Pancreatitis, Hdsv-te-Fofa Acute Pancreatitis Acute pancreatitis happens when the pancreas gets swollen. The pancreas is a large gland in the body that helps to control blood sugar. It also makes enzymes that help to digest food. This condition can last a few days and cause serious problems. The lungs, heart, and kidneys may stop working. What are the causes? Causes include: Alcohol abuse. Drug abuse. Gallstones. A tumor in the pancreas. Other causes include: Some medicines. Some chemicals. Diabetes. An infection. Damage caused by an accident. The poison (venom) from a scorpion bite. Belly (abdominal) surgery. The body's defense system (immune system) attacking the pancreas (autoimmune pancreatitis). Genes that are passed from parent to child (inherited). In some cases, the cause is not known. What are the signs or symptoms? Pain in the upper belly that may be felt in the back. The pain may be very bad. Swelling of the belly. Feeling sick to your stomach (nauseous) and throwing up (vomiting). Fever. How is this treated? You will likely have to stay in the hospital. Treatment may include: Pain medicine. Fluid through an IV tube. Placing a tube in the stomach to take out the stomach contents. This may help you stop throwing up. Not eating for 3 4 days. Antibiotic medicines, if you have an infection. Treating any other problems that may be the cause. Steroid medicines, if your problem is caused by your defense system attacking your body's own tissues. Surgery. Follow these instructions at home: Eating and drinking Follow instructions from your doctor about what to eat and drink. Eat foods that do not have a lot of fat in them. Eat small meals often. Do not eat big meals. Drink enough fluid to keep your pee (urine) pale yellow. Do not drink alcohol if it caused your condition. Medicines Take wsrd-vuq-[id number] and prescription medicines only as told by your doctor. Ask your doctor if the medicine prescribed to you: ?Requires you to avoid driving or using heavy machinery. ?Can cause trouble pooping (constipation). You may need to take steps to prevent or treat trouble pooping: ?Take wvdh-ava-eljouax or prescription medicines. ?Eat foods that are high in fiber. These include beans, whole grains, and fresh fruits and vegetables. ?Limit foods that are high in fat and sugar. These include fried or sweet foods. General instructions Do not use any products that contain nicotine or tobacco, such as cigarettes, e- cigarettes, and chewing tobacco. If you need help quitting, ask your doctor. Get plenty of rest. Check your blood sugar at home as told by your doctor. Keep all follow-up visits as told by your doctor. This is important. Contact a doctor if: You do not get better as quickly as expected. You have new symptoms. Your symptoms get worse. You have pain or weakness that lasts a long time. You keep feeling sick to your stomach. You get better and then you have pain again. You have a fever. Get help right away if: You cannot eat or keep fluids down. Your pain gets very bad. Your skin or the white part of your eyes turns yellow. You have sudden swelling in your belly. You throw up. You feel dizzy or you pass out (faint). Your blood sugar is high (over 300 mg/dL). Summary Acute pancreatitis happens when the pancreas gets swollen. This condition is often caused by alcohol abuse, drug abuse, or gallstones. You will likely have to stay in the hospital for treatment. This information is not intended to replace advice given to you by your health care provider. Make sure you discuss any questions you have with your health care provider. Document Released: 02/21/2009 Document Revised: 06/25/2019 Document Reviewed: 06/25/2019 [employer] Patient Education 2020 [employer] Follow Up Care 03/07/2023 16:24:16 With:CJ RIVERA Address: [address] [facility] [place] [id number] [phone] When:03/14/2023 13:00:00 Comments:This is your post-hospital follow-up appointment. [facility] 06-23-2023 Note Discharge Instructions Thank you for allowing [facility] to assist you with your healthcare needs. The following is importantdischarge information regarding your hospital visit. Your Care Team [facility] Your Diagnosis Pancreatitis Abdominal pain Chronic diastolic HF (heart failure) Factor V deficiency Migraine What to do next Instructions From Your Doctor You were admitted due to pain for ongoing pancreatitis. 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 We treated youwith IV fluids, pain medication and anti-nausea medications while you were admitted with improvement in your symptoms. I will discharge you on Percocet for pain and Zofran for nausea. Please follow-up with your PCP as scheduled for post-hospital follow-up. I would recommend that you call Dr. Mello's office to see if your appointment can be moved up due to frequent admissions for pancreatitis. Ifyou have any worsening pain not controlled by Percocet, please return to the ED. There are 2 GI speciality groups in [place]: [facility] - [phone] [facility] [place] - [phone] You could try one of these practices if you are unable to get into Dr. Mello sooner. Scheduled Follow-Up Appointments Appointment Type When With Where Contact InformationPC OV Hospital Follow-Up 03/14/2023 01:00 PM [facility] 04/18/2023 03:30 PM EDT [facility] Follow Up with CJ RIVERA When 03/14/2023 01:00 PM EDT Why: This is your post-hospital follow-up appointment. Where: [address] [place] [address]- [phone] The Following Activity and Diet Have Been Ordered for You Discharge Activity - Ordered -- Resume your pre-hospitalization activity, 03/11/23 14:54:00 EDT Discharge Diet - Ordered -- No changes were made to your diet during your hospital stay. Please resume your pre hospitalization diet on discharge., 03/11/23 14:54:00 EDT Allergies penicillin (Rash) Neurontin (Vomiting) sulfa drug Medications Please ask your primary doctor or pharmacist before taking any other medication not listed, including over the counter drugs, herbal medications, vitamins and or supplements as they may interact withyour home medications. What How Much When Why Instructions Last Dose New acetaminophen-oxyCODONE (Percocet 5 mg-325 mg oral tablet) 1 tab(s) by mouth Every 6 hours as needed for for pain Pancreatitis Duration: 3 Days Pickup at [facility] New ondansetron (ondansetron 4 mg oral tablet) 1 tab(s) by mouth Every 6 hours as needed for Nausea/Vomiting Pickup at [facility] Unchanged APAP/ butalbital/ caffeine (APAP/ butalbital/ caffeine 325-50-40 mg oral tablet (Fioricet)) 1 tab(s) by mouth Every 4 hours as needed for as needed in absence of pcp Unchanged APAP/ butalbital/ caffeine (APAP/ butalbital/ caffeine 325-50-40 mg oral tablet (Fioricet)) 1 tab(s) by mouth Every 4 hours as needed for abdominal discomfort Unchanged ascorbic acid (Vitamin C 1000 mg oral tablet) 1 tab(s) by mouth Once a day Unchanged cholecalciferol (cholecalciferol 1250 mcg (50,000 intl units) oral capsule) 1 cap by mouth Every Tuesday Duration: 90 Days Unchanged clonazePAM (clonazePAM 0.5 mg oral tablet) 1 tab(s) by mouth Once a day as needed for Anxiety Unchanged cloNIDine (cloNIDine 0.2 mg oral tablet) 1 tab(s) by mouth Once a day Duration: 90 Days Unchanged dicyclomine (dicyclomine 10 mg oral capsule) 1 cap by mouth Four (4) times a day Duration: 10 Days Unchanged fenofibrate (fenofibrate 145 mg oral tablet) 1 tab(s) by mouth Once a day Unchanged furosemide (furosemide 40 mg oral tablet) 1 tab(s) by mouth Once a day Duration: 90 Days Unchanged hydroCHLOROthiazide (hydroCHLOROthiazide 25 mg oral tablet) 1 tab(s) by mouth Once a day Unchanged lacosamide (lacosamide 100 mg oral tablet) 1 tab(s) by mouth Once a day (in the morning) Unchanged lacosamide (lacosamide 100 mg oral tablet) 2 tab(s) by mouth Once a day (in the evening) Unchanged lactulose (lactulose 10 g/ 15 mL oral syrup) 15 Milliliter by mouth Two (2) times a day as needed for as needed for constipation Unchanged linaclotide (Linzess 290 mcg oral capsule) 1 cap by mouth Once a day Duration: 90 Days Unchanged magnesium salicylate (magnesium salicylate 600 mg oral tablet) 1 tab(s) by mouth Every 4 hours Unchanged methenamine (methenamine hippurate 1 g oral tablet) 1 tab(s) by mouth Once a day Unchanged methenamine (methenamine hippurate 1 g oral tablet) 1 tab(s) by mouth Once a day Duration: 90 Days Unchanged metoprolol (metoprolol tartrate 25 mg oral tablet) 1 tab(s) by mouth Two (2) times a day Duration: 90 Days Unchanged nitrofurantoin (Macrobid 100 mg oral capsule) 1 cap by mouth Once a day as needed for Symptoms of urinary discomfort Take with food Unchanged omeprazole (omeprazole 40 mg oral delayed release capsule) 1 cap by mouth Two (2) times a day Duration: 90 Days Unchanged potassium chloride (potassium chloride 20 mEq oral tablet, extended release) 1 tab(s) by mouth Three (3) times a day Duration: 90 Days Unchanged promethazine (promethazine 25 mg oral tablet) 1 tab(s) by mouth Every 6 hours as needed for for nausea/vomiting Unchanged rivaroxaban (Xarelto 10 mg oral tablet) 1 tab(s) by mouth Once a day Duration: 90 Days Unchanged rOPINIRole (rOPINIRole 0.5 mg oral tablet) 1 tab(s) by mouth Two (2) times a day Duration: 90 Days Unchanged valACYclovir (valACYclovir 500 mg oral tablet) 1 tab(s) by mouth Once a day Duration: 90 Days Unchanged venlafaxine (venlafaxine 150 mg oral capsule, extended release) 1 cap by mouth Once a day Duration: 90 Days for a total of 225 mg/ day. Unchanged venlafaxine (venlafaxine 75 mg oral capsule, extended release) 1 cap by mouth Once a day Duration: 90 Days for a total of 225 mg/ day. Pharmacy Information [facility]: [address] [place] [id number] [phone] Please take this list to your next doctor s visit. Bring all medications you take, including over the counter medications, herbals and other supplements with you to your doctor s visit. Patients and families are reminded to discard old lists and to update any records with all medication providers or retail pharmacies. Medication Leaflets acetaminophen and oxycodone (a SEET a MIN oh fen and OX i KOE done) Endocet 10/325, Endocet 2.5/325, Endocet 5/325, Endocet 7.5/325, Nalocet, Percocet, Primlev What is the most important information I should know about acetaminophen and oxycodone? MISUSE OF OPIOID MEDICINE CAN CAUSE ADDICTION, OVERDOSE, OR . Keep the medication in a place where others cannot get to it. Taking opioid medicine during may cause life-threatening withdrawal symptoms in the . Fatal side effects can occur if you use opioid medicine with alcohol, or with other drugs that cause drowsiness or slow your breathing. Stop taking this medicine and call your doctor right away if you have skin redness or a rash that spreads and causes blistering and peeling. What is acetaminophen and oxycodone? Acetaminophen and oxycodone is a combination medicine used to relieve moderate to severe pain. Acetaminophen and oxycodone contains an opioide medicine and may be habit-forming. Acetaminophen and oxycodone may also be used for purposes not listed in this medication guide. What should I discuss with my healthcare provider before taking acetaminophen and oxycodone? You should not use this medicine if you are allergic to acetaminophen or oxycodone, or if you have: severe asthma or breathing problems; or a blockage in your stomach or intestines. Tell your doctor if you have ever had: breathing problems, sleep apnea; liver disease; a drug or alcohol addiction; kidney disease; a head injury or seizures; urination problems; or problems with your thyroid, pancreas, or gallbladder. If you use opioid medicine while you are , your baby could become dependent on the drug. This can cause life-threatening withdrawal symptoms in the baby after it is born. Babies born dependent on opioids may need medical treatment for several weeks. Ask a doctor before using opioid medicine if you are . Tell your doctor if you notice severe drowsiness or slow breathing in the nursing baby. How should I take acetaminophen and oxycodone? Follow all directions on your prescription label. Never take this medicine in larger amounts, or for longer than prescribed. An overdose can damage your liver or cause . Tell your doctor if you feel an increased urge to use more of this medicine. Never share opioid medicine with another person, especially someone with a history of drug abuse oraddiction. MISUSE CAN CAUSE ADDICTION, OVERDOSE, OR . Keep the medicine in a place where others cannot get to it. Selling or giving away opioid medicine is against the law. Measure liquid medicine carefully. Use the dosing syringe provided, or use a medicine dose-measuring device (not a kitchen spoon). If you need surgery or medical tests, tell the doctor ahead of time that you are using this medicine. You should not stop using this medicine suddenly. Follow your doctor's instructions about tapering your dose. Store at room temperature away from moisture and heat. Keep track of your medicine. You should be aware if anyone is using it improperly or without a prescription. Do not keep leftover opioid medication. Just one dose can cause in someone using this medicine accidentally or improperly. Ask your pharmacist where to locate a drug take-back disposal program.If there is no take-back program, flush the unused medicine down the toilet. What happens if I miss a dose? Since this medicine is used for pain, you are not likely to miss a dose. Skip any missed dose if itis almost time for your next dose. Do not use two doses at one time. What happens if I overdose? Seek emergency medical attention or call the Poison Help line at . An overdose of this medicine can be fatal, especially in a child or other person using the medicine without a prescription. Overdose symptoms may include nausea, vomiting, sweating, severe drowsiness, pinpoint pupils, slow breathing, or no breathing. Your doctor may recommend you get naloxone (a medicine to reverse an opioid overdose) and keep it with you at all times. A person caring for you can give the naloxone if you stop breathing or don't wake up. Your caregiver must still get emergency medical help and may need to perform CPR (cardiopulmonary resuscitation) on you while waiting for help to arrive. Anyone can buy naloxone from a pharmacy or local health department. Make sure any person caring foryou knows where you keep naloxone and how to use it. What should I avoid while taking acetaminophen and oxycodone? Avoid driving or operating machinery until you know how this medicine will affect you. Dizziness ordrowsiness can cause falls, accidents, or severe injuries. Do not drink alcohol. Dangerous side effects or could occur. Ask a doctor or pharmacist before using any other medicine that may contain acetaminophen (sometimes abbreviated as APAP). Taking certain medications together can lead to a fatal overdose. What are the possible side effects of acetaminophen and oxycodone? Get emergency medical help if you have signs of an allergic reaction: hives; difficulty breathing; swelling of your face, lips, tongue, or throat. Opioid medicine can slow or stop your breathing, and may occur. A person caring for you should give naloxone and/or seek emergency medical attention if you have slow breathing with long pauses,blue colored lips, or if you are hard to wake up. In rare cases, acetaminophen may cause a severe skin reaction that can be fatal. This could occur even if you have taken acetaminophen in the past and had no reaction. Stop taking this medicine and call your doctor right away if you have skin redness or a rash that spreads and causes blistering andpeeling. Call your doctor at once if you have: noisy breathing, sighing, shallow breathing, breathing that stops; a light-headed feeling, like you might pass out; weakness, tiredness, fever, unusual bruising or bleeding; confusion, unusual thoughts or behavior; problems with urination; liver problems--nausea, upper stomach pain, tiredness, loss of appetite, dark urine, shannan-colored stools, jaundice (yellowing of the skin or eyes); low cortisol levels-- nausea, vomiting, loss of appetite, dizziness, worsening tiredness or weakness; or high levels of serotonin in the body--agitation, hallucinations, fever, sweating, shivering, fast heart rate, muscle stiffness, twitching, loss of coordination, nausea, vomiting, diarrhea. Serious breathing problems may be more likely in older adults and in those who are debilitated or have wasting syndrome or chronic breathing disorders. Common side effects include: dizziness, drowsiness, feeling tired; feelings of extreme happiness or sadness; nausea, vomiting, stomach pain; constipation; or headache. This is not a complete list of side effects and others may occur. Call your doctor for medical advice about side effects. You may report side effects to FDA at 0-248-IDZ-9968. What other drugs will affect acetaminophen and oxycodone? You may have breathing problems or withdrawal symptoms if you start or stop taking certain other medicines. Tell your doctor if you also use an antibiotic, antifungal medication, heart or blood pressure medication, seizure medication, or medicine to treat HIV or hepatitis C. Opioid medication can interact with many other drugs and cause dangerous side effects or . Be sure your doctor knows if you also use: cold or allergy medicines, bronchodilator asthma/COPD medication, or a diuretic ('water pill'); medicines for motion sickness, irritable bowel syndrome, or overactive bladder; other opioids--opioid pain medicine or prescription cough medicine; a sedative like Valium--diazepam, alprazolam, lorazepam, Xanax, Klonopin, Versed, and others; drugs that make you sleepy or slow your breathing--a sleeping pill, muscle relaxer, medicine to treat mood disorders or mental illness; drugs that affect serotonin levels in your body--a stimulant, or medicine for depression, Parkinson's disease, migraine headaches, serious infections, or nausea and vomiting. This list is not complete. Other drugs may affect acetaminophen and oxycodone, including prescription and awrv-wcf-lqmuayp medicines, vitamins, and herbal products. Not all possible interactions are listed here. Where can I get more information? Your doctor or pharmacist can provide more information about acetaminophen and oxycodone. Remember, keep this and all other medicines out of the reach of children, never share your medicines with others, and use this medication only for the indication prescribed. Every effort has been made to ensure that the information provided by [employer]') is accurate, up-to-date, and complete, but no guarantee is made to that effect. Drug information contained herein may be time sensitive. [employer] information has been compiled for use by healthcare practitioners and consumers in the [place] and therefore [employer] does not warrant that uses outside of the [place] are appropriate, unless specifically indicated otherwise. [employer] drug information does not endorse drugs, diagnose patients or recommend therapy. [employer] drug information isan informational resource designed to assist licensed healthcare practitioners in caring for their p atients and/or to serve consumers viewing this service as a supplement to, and not a substitute for, the expertise, skill, knowledge and judgment of healthcare practitioners. The absence of a warningfor a given drug or drug combination in no way should be construed to indicate that the drug or drug combination is safe, effective or appropriate for any given patient. [employer] does not assume any responsibility for any aspect of healthcare administered with the aid of information [employer] provides. The information contained herein is not intended to cover all possible uses, directions, precautions, warnings, drug interactions, allergic reactions, or adverse effects. If you have questions about the drugs you are taking, check with your doctor, nurse or pharmacist. Copyright 8589-1601 [facility] [employer] [employer]. Version: .. Revision Date: 10/24/2020. ondansetron (oral) (on BENJI se sean) [employer] What is the most important information I should know about ondansetron? You should not use ondansetron if you are also using apomorphine (Apokyn). What is ondansetron? Ondansetron blocks the actions of chemicals in the body that can trigger nausea and vomiting. Ondansetron is used to prevent nausea and vomiting that may be caused by surgery, cancer chemotherapy, or radiation treatment. Ondansetron may be used for purposes not listed in this medication guide. What should I discuss with my health care provider before taking ondansetron? You should not use ondansetron if: you are also using apomorphine (Apokyn); or you are allergic to ondansetron or similar medicines (dolasetron, granisetron, palonosetron). To make sure ondansetron is safe for you, tell your doctor if you have: liver disease; an electrolyte imbalance (such as low levels of potassium or magnesium in your blood); congestive heart failure, slow heartbeats; a personal or family history of long QT syndrome; or a blockage in your digestive tract (stomach or intestines). Ondansetron is not expected to harm an unborn baby. Tell your doctor if you are . It is not known whether ondansetron passes into breast milk or if it could harm a nursing baby. Tell your doctor if you are breast-feeding a baby. Ondansetron is not approved for use by anyone younger than 4 years old. Ondansetron orally disintegrating tablets may contain phenylalanine. Tell your doctor if you have phenylketonuria (PKU). How should I take ondansetron? Follow all directions on your prescription label. Do not take this medicine in larger or smaller amounts or for longer than recommended. Ondansetron can be taken with or without food. The first dose of ondansetron is usually taken before the start of your surgery, chemotherapy, or radiation treatment. Follow your doctor's dosing instructions very carefully. Take the ondansetron regular tablet with a full glass of water. To take the orally disintegrating tablet (Zofran ODT): Keep the tablet in its blister pack until you are ready to take it. Open the package and peel back the foil. Do not push a tablet through the foil or you may damage the tablet. Use dry hands to remove the tablet and place it in your mouth. Do not swallow the tablet whole. Allow it to dissolve in your mouth without chewing. Swallow several times as the tablet dissolves. To use ondansetron oral soluble film (strip) (Zuplenz): Keep the strip in the foil pouch until you are ready to use the medicine. Using dry hands, remove the strip and place it on your tongue. It will begin to dissolve right away. Do not swallow the strip whole. Allow it to dissolve in your mouth without chewing. Swallow several times after the strip dissolves. If desired, you may drink liquid to help swallow the dissolved strip. Wash your hands after using Zuplenz. Measure liquid medicine with the dosing syringe provided, or with a special dose-measuring spoon ormedicine cup. If you do not have a dose-measuring device, ask your pharmacist for one. Store at room temperature away from moisture, heat, and light. Store liquid medicine in an upright position. What happens if I miss a dose? Take the missed dose as soon as you remember. Skip the missed dose if it is almost time for your next scheduled dose. Do not take extra medicine to make up the missed dose. What happens if I overdose? Seek emergency medical attention or call the Poison Help line at . Overdose symptoms may include sudden loss of vision, severe constipation, feeling light-headed, or fainting. What should I avoid while taking ondansetron? Ondansetron may impair your thinking or reactions. Be careful if you drive or do anything that requires you to be alert. What are the possible side effects of ondansetron? Get emergency medical help if you have signs of an allergic reaction: rash, hives; fever, chills, difficult breathing; swelling of your face, lips, tongue, or throat. Call your doctor at once if you have: severe constipation, stomach pain, or bloating; headache with chest pain and severe dizziness, fainting, fast or pounding heartbeats; fast or pounding heartbeats; jaundice (yellowing of the skin or eyes); blurred vision or temporary vision loss (lasting from only a few minutes to several hours); high levels of serotonin in the body--agitation, hallucinations, fever, fast heart rate, overactivereflexes, nausea, vomiting, diarrhea, loss of coordination, fainting. Common side effects may include: diarrhea or constipation; headache; drowsiness; or tired feeling. This is not a complete list of side effects and others may occur. Call your doctor for medical advice about side effects. You may report side effects to FDA at 4-584-AQI-5063. What other drugs will affect ondansetron? Ondansetron can cause a serious heart problem, especially if you use certain medicines at the same time, including antibiotics, antidepressants, heart rhythm medicine, antipsychotic medicines, and medicines to treat cancer, malaria, HIV or AIDS. Tell your doctor about all medicines you use, and those you start or stop using during your treatment with ondansetron. Taking ondansetron while you are using certain other medicines can cause high levels of serotonin to build up in your body, a condition called 'serotonin syndrome,' which can be fatal. Tell your doctor if you also use: medicine to treat depression; medicine to treat a psychiatric disorder; a narcotic (opioid) medication; or medicine to prevent nausea and vomiting. This list is not complete and many other drugs can interact with ondansetron. This includes prescription and asri-sxk-delkhcg medicines, vitamins, and herbal products. Give a list of all your medicines to any healthcare provider who treats you. Where can I get more information? Your pharmacist can provide more information about ondansetron. Remember, keep this and all other medicines out of the reach of children, never share your medicines with others, and use this medication only for the indication prescribed. Every effort has been made to ensure that the information provided by [employer]') is accurate, up-to-date, and complete, but no guarantee is made to that effect. Drug information contained herein may be time sensitive. [employer] information has been compiled for use by healthcare practitioners and consumers in the [place] and therefore [employer] does not warrant that uses outside of the [place] are appropriate, unless specifically indicated otherwise. [employer] drug information does not endorse drugs, diagnose patients or recommend therapy. [employer] drug information isan informational resource designed to assist licensed healthcare practitioners in caring for their p atients and/or to serve consumers viewing this service as a supplement to, and not a substitute for, the expertise, skill, knowledge and judgment of healthcare practitioners. The absence of a warningfor a given drug or drug combination in no way should be construed to indicate that the drug or drug combination is safe, effective or appropriate for any given patient. [employer] does not assume any responsibility for any aspect of healthcare administered with the aid of information [employer] provides. The information contained herein is not intended to cover all possible uses, directions, precautions, warnings, drug interactions, allergic reactions, or adverse effects. If you have questions about the drugs you are taking, check with your doctor, nurse or pharmacist. Copyright 3678-3798 [employer]. Version: 13.. Revision Date: 07/09/2016. Education Materials Acute Pancreatitis Acute pancreatitis happens when the pancreas gets swollen. The pancreas is a large gland in the body that helps to control blood sugar. It also makes enzymes that help to digest food. This condition can last a few days and cause serious problems. The lungs, heart, and kidneys may stop working. What are the causes? Causes include: Alcohol abuse. Drug abuse. Gallstones. A tumor in the pancreas. Other causes include: Some medicines. Some chemicals. Diabetes. An infection. Damage caused by an accident. The poison (venom) from a scorpion bite. Belly (abdominal) surgery. The body's defense system (immune system) attacking the pancreas (autoimmune pancreatitis). Genes that are passed from parent to child (inherited). In some cases, the cause is not known. What are the signs or symptoms? Pain in the upper belly that may be felt in the back. The pain may be very bad. Swelling of the belly. Feeling sick to your stomach (nauseous) and throwing up (vomiting). Fever. How is this treated? You will likely have to stay in the hospital. Treatment may include: Pain medicine. Fluid through an IV tube. Placing a tube in the stomach to take out the stomach contents. This may help you stop throwing up. Not eating for 3 4 days. Antibiotic medicines, if you have an infection. Treating any other problems that may be the cause. Steroid medicines, if your problem is caused by your defense system attacking your body's own tissues. Surgery. Follow these instructions at home: Eating and drinking Follow instructions from your doctor about what to eat and drink. Eat foods that do not have a lot of fat in them. Eat small meals often. Do not eat big meals. Drink enough fluid to keep your pee (urine) pale yellow. Do not drink alcohol if it caused your condition. Medicines Take pduy-iej-nctznjs and prescription medicines only as told by your doctor. Ask your doctor if the medicine prescribed to you: ? Requires you to avoid driving or using heavy machinery. ? Can cause trouble pooping (constipation). You may need to take steps to prevent or treat trouble pooping: ? Take ufgw-ins-hisjzso or prescription medicines. ? Eat foods that are high in fiber. These include beans, whole grains, and fresh fruits and vegetables. ? Limit foods that are high in fat and sugar. These include fried or sweet foods. General instructions Do not use any products that contain nicotine or tobacco, such as cigarettes, e- cigarettes, and chewing tobacco. If you need help quitting, ask your doctor. Get plenty of rest. Check your blood sugar at home as told by your doctor. Keep all follow-up visits as told by your doctor. This is important. Contact a doctor if: You do not get better as quickly as expected. You have new symptoms. Your symptoms get worse. You have pain or weakness that lasts a long time. You keep feeling sick to your stomach. You get better and then you have pain again. You have a fever. Get help right away if: You cannot eat or keep fluids down. Your pain gets very bad. Your skin or the white part of your eyes turns yellow. You have sudden swelling in your belly. You throw up. You feel dizzy or you pass out (faint). Your blood sugar is high (over 300 mg/dL). Summary Acute pancreatitis happens when the pancreas gets swollen. This condition is often caused by alcohol abuse, drug abuse, or gallstones. You will likely have to stay in the hospital for treatment. This information is not intended to replace advice given to you by your health care provider. Make sure you discuss any questions you have with your health care provider. Document Released: 02/21/2009 Document Revised: 06/25/2019 Document Reviewed: 06/25/2019 [employer] Patient Education 2020 [employer]. Additional Information VACCINATE! IT SAVES LIVES! Members of the community who have not yet received the COVID-19 vaccine and would like to receive it can visit one of [facility] vaccine clinics. There are many vaccine clinic locations within the [facility]. For locations and available times, please visit [email or web address]/. It is important to note that some COVID mobile vaccine clinics are held outdoors and may be canceled in rainy or stormy conditions. To learn more about pediatric vaccinations (ages 5-11), we invite you to visit the [facility] webpage. [email or web address] learn more about the COVID-19 vaccine, we invite you to visit the CDC website for a list of frequently asked questions.https://www.cdc.gov/coronavirus/2019-ncov/vaccines/faq.html [facility] Patient Portal Access Instructions: Stay connected with your healthcare team and access your personal medical information anytime with the [facility] Patient Portal. Please follow the directions below to create your [facility] account: 1.Access the email account you provided upon registration to the hospital/physician office.2.Look for an invitation email from [facility].3.Open the email and access the invitation link: AcceptInvitation to [facility].4.Fill in the required azul to create your account. To access your account, visit [email or web address]. Click the blue button labeled Access Patient Portal and then log in with the username and password that you created in the steps above. You will be able to view your test results, lab results, a summary of your visits, upcoming appointments and more. There is also a convenient messaging option where you can send secure messages to your p rovider. In addition, you will have the ability to download any documents or summaries to your computer and/or send the information securely to a physician. Remember that your healthcare information is confidential, so carefully consider who you will allowto register on the [facility] Patient Portal for access to your information. You can also access the [facility] Patient Portal on the [place] [facility] leslie. Simply click on Patient Portal and then log into your account. If you would like to receive a full copy of your medical records, please contact the [facility] Medical Records Department by calling [phone], Tuesday through Tuesday between 8 a.m. and 4:30 p.m. HOW TO SAFELY DISPOSE OF PRESCRIPTION MEDICATIONS Please use one of the following methods to safely dispose of your unused medications. 1.Use a drug disposal kit: the drug disposal pouch allows you to safely discard your old and unuseddrugs. Ask your nurse to give you one when you are discharged.2.Visit a local take-back location: Many local pharmacies and police departments have programs that collect old and unwanted prescriptiondrugs. Call your local pharmacy or go to http://bit.ly/7V5Sz6j to find one close to you.3.Make use of household items: Use cat litter or old coffee grounds to dispose medications if other options arenot available. Mix your drugs with these household products, seal them in an airtight container andthrow it into the garbage. Call [facility]: [phone] to be sure your drugs can be disposed of in this way. Some medicines may require a different approach.4.Never flush your medications down the toilet. IF YOU HAVE BEEN PRESCRIBED AN OPIOID FOR PAIN If you have been prescribed an opioid (such as hydrocodone, oxycodone or morphine), it is critical to understand the possible side effects and risks of opioid pain medications. Even when taken as directed, opioids can have several side effects including: Tolerance, meaning you might need to take more of a medication for the same pain relief. Nausea, vomiting and/or constipation. Sleepiness, dizziness, dry mouth, confusion, depression or itching. Physical dependence, meaning you have withdrawal symptoms when a medication is stopped, can develop within a few days. KNOW YOUR RESPONSIBILITIES It is important to know exactly how much and how often to take the opioid pain medications you are prescribed. Never take opioids in higher amounts or more often than prescribed. Do not combine opioids with alcohol or other drugs that cause drowsiness, such as benzodiazepines, also known as benzos, including diazepam and alprazolam, muscle relaxants or sleep aids. Never sell or share prescription opioids. This is illegal. Store opioids in a secure place and out of reach of others (including children, family, friends and visitors). The last page of this document has been signed and retained as a CHART COPY. Signatures Patient Education Materials Acute Pancreatitis, Bczg-qo-Ppwc Medication Leaflets acetaminophen and oxycodone, ondansetron (oral) My discharge plan and instructions have been reviewed and explained to me and IMATY AMANDA M understand my current condition and have read and understand these discharge instructions. I have received a written copy of the plan/instructions. If I have questions, I am aware that I should contact my doctor. 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 She states she feels that the pain isimproving slowly. She reports that she gets sharp epigastric pains intermittently but mostly she has a soreness in that area and in the right upper quadrant. She states she is tolerating small amounts of clear liquids so far but does not feel that she is taking in adequate fluids. We checked an Igg4 yesterday but the result is still pending. Patient denies any new or worsening problems this morning. She denies any fever, chills, cough, shortness of breath, chest pain, diarrhea or dysuria. Allquestions answered. Objective Vitals and Measurements T: 37.0 C (Oral) TMIN: 36.1 C (Oral) TMAX: 37.2 C (Oral) HR: 72(Apical) RR: 16 BP: 121/77 SpO2: 94%WT: 97.2 kg Intake and Output 7AM Yesterday to 7AM Today Intake and Output (Last 24 hours) Intake Output Total Summary Total Intake 0.00 Total Output 0.00 Fluid Balance 0.00 Physical Exam General: No acute distress. Patient is alert and appropriate. Skin: No rash. Skin is warm, dry and intact. HEENT: Head is normocephalic, atraumatic. Pupils are equal, round and reactive. Neck: Supple. No lymphadenopathy, thyromegaly. Lungs: Bilaterally clear but diminished without crepitation or wheeze. Unlabored. Heart: Heart is regular rhythm, S1, S2. No murmurs, gallops or rubs. Abdomen: Abdomen is soft, mild tenderness noted in epigastric/right upper quadrant. Bowels sounds present in all quadrants. Extremities: No clubbing, cyanosis, or edema. Peripheral pulses palpable. No calf tenderness. Neurological: Patient is awake and alert to person, place and time. Following simple commands, moving all extremities. Weight Current Weight Dosing Weight: 98.1 kg (03/07/23) Current Weight: 97.2 kg (03/10/23) Current Weight: 98.4 kg (03/09/23) Medications Medications (33) Active Scheduled: (18) ascorbic acid 500 mg tablet 1,000 mg 2 tab(s), Oral, qDay cefepime 2 gram(s), IV Piggyback, q12h clonidine 0.1 mg tablet 0.2 mg 2 tab(s), Oral, qDay dicyclomine 10 mg capsule 10 mg 1 cap(s), Oral, QID fenofibrate 160 mg tablet 160 mg 1 tab(s), Oral, Daily furosemide 40 mg tablet 40 mg 1 tab(s), Oral, qDay hydrochlorothiazide 25 mg tablet 25 mg 1 tab(s), Oral, qDay lacosamide 50 mg tablet 100 mg 2 tab(s), Oral, qAM lacosamide 50 mg tablet 200 mg 4 tab(s), Oral, qPM magnesium oxide 400 mg Tablet 400 mg 1 tab(s), Oral, qDay methenamine hippurate 1 gm tablet 1 gram(s) 1 tab(s), Oral, qDay metoprolol tartrate 25 mg tablet 25 mg 1 tab(s), Oral, BID metronidazole PMX 500 mg 100 mL, IV Piggyback, q8h pantoprazole 40 mg VIAL 40 mg, IV Push, qDayAC polyethylene glycol 3350 - UD packet 17 gram(s) 15 mL, Oral, BID rivaroxaban 10 mg tablet 10 mg 1 tab(s), Oral, qDay rOPINIRole 1 mg tablet 0.5 mg 0.5 tab(s), Oral, BID venlafaxine 75 mg ER capsule 225 mg 3 cap(s), Oral, qDayM Continuous: (1) Lactated Ringers 1,000 mL 1,000 mL, Intravenous, 75 mL/hr PRN: (14) acetaminophen 325 mg Tablet 650 mg 2 tab(s), Oral, q4h acetaminophen 325 mg Tablet 650 mg 2 tab(s), Oral, q4h Al hydrox/Mg hydrox/simethicone 200-200-20 mg/5 mL Susp UD 15 mL, Oral, q4h albuterol - ipratropium 2.5 mg-0.5 mg/3 mL Inhal Sherice UD 3 mL, Inhalation, q4hRT APAP/butalbital/caffeine (FioriCET) 325 mg-50 mg-40 mg Tablet 1 tab(s), Oral, q4h calcium carbonate 500 mg Chewable 500 mg 1 tab(s), Chewed, TID clonazePAM 0.5 mg tablet 0.5 mg 1 tab(s), Oral, qDay docusate sodium 100 mg Capsule 100 mg 1 cap(s), Oral, BID hydromorphone 1 mg/mL (1mL) INJ 1 mg 1 mL, IV Push, q3h lactulose 20 g/30 mL UD cup 10 gram(s) 15 mL, Oral, BID melatonin 3 mg tablet 6 mg 2 tab(s), Oral, qHS ondansetron 2 mg/ 1 mL 2 mL INJ 4 mg 2 mL, IV Push, q4h promethazine 25 mg Tablet 25 mg 1 tab(s), Oral, q6h sodium chloride nasal 0.65% [place] 2 spray(s), Nostril, each, q4h Lab Results 03/10 05:18 WBC: 4.8 Hgb: 13.1 Hct: 39.1 Platelet: 344 Neutrophil %: 58.2 Glucose Level: 138 H Sodium Level: 137 Potassium Level: 3.4 L BUN: 6 L Creatinine Lvl (s): 0.87 03/09 05:14 WBC: 6.3 Hgb: 12.7 Hct: 37.8 Platelet: 332 Neutrophil %: 55.5 Glucose Level: 116 H Sodium Level: 138 Potassium Level: 3.5 BUN: 7 Creatinine Lvl (s): 0.84 Imaging Results and Diagnostics MRI [facility] Result Date: March 08, 2023 Verified By: RAFAEL CANALES MD CLINICAL STATEMENT: IMPRESSION: Dilated common bile duct, which may be physiologic after cholecystectomy. No evidence of choledocholithiasis or obstructing mass. I have personally reviewed the images of this examinationand agree with the resident's findings and interpretation. RECOMMENDATIONS:Unavailable CT Abd/Pelvis w/ IV Contrast Only Result Date: March 07, 2023 Verified By: RAFAEL CANALES MD CLINICAL STATEMENT: IMPRESSION: Sequelae of pancreatitis, including peripancreatic fat stranding and areas of heterogeneous and non-enhancement of the pancreatic parenchyma, concerning for sequelae of pancreatic necrosis. Difficult to exclude pancreatic centered fluid collection. EKG No qualifying data available. Assessment/Plan 1. Pancreatitis Acute, new onset since Tuesday of epigastric and right upper quadrant pain *Patient had a cholecystectomy in 1996 and reports having lodged stones in 2002 requiring ERCP. *MRCP demonstrated dilated common bile duct, which may be physiologic after cholecystectomy. No evidence of choledocholithiasis or obstructing mass. *Continue LR @ 75cc/hr until fluid intake improves. *Continue IV pain medication and antiemetics - encourage oral pain medication today. *Continue clear liquids as tolerated. *Lipase the same today, 107, was 106 yesterday. *AST and ALT trending up slightly. *Repeat lipase, CBC and CMP in the am. 2. Abdominal pain Acute, new onset, likely secondary to pancreatitis *Plan as above. 3. Chronic diastolic HF (heart failure) Chronic, no echo noted in system *Monitor for signs of fluid overload while on IVF. 4. Factor V deficiency Chronic, with past history of DVT and PE *Continue Xarelto at current dose. *Patient reports that she has an IVC filter but it has been dislodged for quite some time. 5. Migraine Chronic *Continue current home medication. DVT prophylaxis with Xarelto. Code status: Full Code. Labs, diagnostic test and progress notes reviewed as noted in HPI. Plan of care discussed with patient. All questions answered. Patient verbalizes understanding and is agreeable with plan of care. This case was discussed with collaborating physician, Dr. Molina Valle. Time Spent 35 minutes Digitally Signed by YANIRA BURCH on 03/10/2023 12:10 PM [facility]06-21-2023 Note Date of Service 03/09/2023 Chief Complaint Abdominal pain Subjective Patient seen and evaluated this morning while resting in bed. She states that she is still painful - she never feels that her pain is less than 5/10 even with medication. Patient requesting an increase in Dilaudid for better pain controlled. Discussed with patient the findings of her MRI - that shehas sequelae of necrotizing pancreatitis - and explained to her what that means. Patient reports that she used to binge-drink in 2007 and 2008 and asking if that is what caused her pancreatitis. Patient advised that it is likely that ongoing damage to her pancreas caused this to happen. Will discuss the findings of the MRI with my collaborator and let her know later the plan of action. She probably should be seen by GI sooner rather than later. Patient denies any nausea and states she will try clear liquids. Encouraged patient to go slow with clear liquids. She denies any fever, chills, cough, shortness of breath, chest pain, abdominal pain, nausea or dysuria. All questions answered. Objective Vitals and Measurements T: 36.7 C (Oral) TMIN: 36.4 C (Oral) TMAX: 36.8 C (Oral) HR: 73(Apical) RR: 16 BP: 111/67 SpO2: 93%WT: 98.4 kg Intake and Output 7AM Yesterday to 7AM Today Intake and Output (Last 24 hours) Intake Output Urine Count 3.00 Total Summary Total Intake 0.00 Total Output 0.00 Fluid Balance 0.00 Physical Exam General: No acute distress. Patient is alert and appropriate. Skin: No rash. Skin is warm, dry and intact. HEENT: Head is normocephalic, atraumatic. Pupils are equal, round and reactive. Neck: Supple. No lymphadenopathy, thyromegaly. Lungs: Bilaterally clear but diminished without crepitation or wheeze. Unlabored. Heart: Heart is regular rhythm, S1, S2. No murmurs, gallops or rubs. Abdomen: Abdomen is soft, mildly tender to palpation in epigastric and right upper quadrant. Bowelssounds present in all quadrants. Extremities: No clubbing, cyanosis, or edema. Peripheral pulses palpable. No calf tenderness. Neurological: Patient is awake and alert to person, place and time. Following simple commands, moving all extremities. Weight Current Weight Dosing Weight: 98.1 kg (03/07/23) Current Weight: 98.4 kg (03/09/23) Current Weight: 98.1 kg (03/08/23) Medications Medications (32) Active Scheduled: (17) cefepime 2 gram(s), IV Piggyback, q12h clonidine 0.1 mg tablet 0.2 mg 2 tab(s), Oral, qDay dicyclomine 10 mg capsule 10 mg 1 cap(s), Oral, QID fenofibrate 160 mg tablet 160 mg 1 tab(s), Oral, Daily furosemide 40 mg tablet 40 mg 1 tab(s), Oral, qDay hydrochlorothiazide 25 mg tablet 25 mg 1 tab(s), Oral, qDay lacosamide 50 mg tablet 100 mg 2 tab(s), Oral, qAM lacosamide 50 mg tablet 200 mg 4 tab(s), Oral, qPM magnesium oxide 400 mg Tablet 400 mg 1 tab(s), Oral, qDay methenamine hippurate 1 gm tablet 1 gram(s) 1 tab(s), Oral, qDay metoprolol tartrate 25 mg tablet 25 mg 1 tab(s), Oral, BID metronidazole PMX 500 mg 100 mL, IV Piggyback, q8h pantoprazole 40 mg VIAL 40 mg, IV Push, qDayAC polyethylene glycol 3350 - UD packet 17 gram(s) 15 mL, Oral, BID rivaroxaban 10 mg tablet 10 mg 1 tab(s), Oral, qDay rOPINIRole 1 mg tablet 0.5 mg 0.5 tab(s), Oral, BID venlafaxine 75 mg ER capsule 225 mg 3 cap(s), Oral, qDayM Continuous: (1) Lactated Ringers 1,000 mL 1,000 mL, Intravenous, 75 mL/hr PRN: (14) acetaminophen 325 mg Tablet 650 mg 2 tab(s), Oral, q4h acetaminophen 325 mg Tablet 650 mg 2 tab(s), Oral, q4h Al hydrox/Mg hydrox/simethicone 200-200-20 mg/5 mL Susp UD 15 mL, Oral, q4h albuterol - ipratropium 2.5 mg-0.5 mg/3 mL Inhal Sherice UD 3 mL, Inhalation, q4hRT APAP/butalbital/caffeine (FioriCET) 325 mg-50 mg-40 mg Tablet 1 tab(s), Oral, q4h calcium carbonate 500 mg Chewable 500 mg 1 tab(s), Chewed, TID clonazePAM 0.5 mg tablet 0.5 mg 1 tab(s), Oral, qDay docusate sodium 100 mg Capsule 100 mg 1 cap(s), Oral, BID hydromorphone 1 mg/mL (1mL) INJ 1 mg 1 mL, IV Push, q3h lactulose 20 g/30 mL UD cup 10 gram(s) 15 mL, Oral, BID melatonin 3 mg tablet 6 mg 2 tab(s), Oral, qHS ondansetron 2 mg/ 1 mL 2 mL INJ 4 mg 2 mL, IV Push, q4h promethazine 25 mg Tablet 25 mg 1 tab(s), Oral, q6h sodium chloride nasal 0.65% [place] 2 spray(s), Nostril, each, q4h Lab Results 03/09 05:14 WBC: 6.3 Hgb: 12.7 Hct: 37.8 Platelet: 332 Neutrophil %: 55.5 Glucose Level: 116 H Sodium Level: 138 Potassium Level: 3.5 BUN: 7 Creatinine Lvl (s): 0.84 03/08 07:52 WBC: 7.3 Hgb: 12.4 Hct: 37.2 Platelet: 318 Neutrophil %: 58.6 Glucose Level: 101 Sodium Level: 141 Potassium Level: 3.6 BUN: 11 Creatinine Lvl (s): 0.77 Imaging Results and Diagnostics MRI [facility] Result Date: March 08, 2023 Verified By: RAFAEL CANALES MD CLINICAL STATEMENT: IMPRESSION: Dilated common bile duct, which may be physiologic after cholecystectomy. No evidence of choledocholithiasis or obstructing mass. I have personally reviewed the images of this examinationand agree with the resident's findings and interpretation. RECOMMENDATIONS:Unavailable CT Abd/Pelvis w/ IV Contrast Only Result Date: March 07, 2023 Verified By: RAFAEL CANALES MD CLINICAL STATEMENT: IMPRESSION: Sequelae of pancreatitis, including peripancreatic fat stranding and areas of heterogeneous and non-enhancement of the pancreatic parenchyma, concerning for sequelae of pancreatic necrosis. Difficult to exclude pancreatic centered fluid collection. EKG No qualifying data available. Assessment/Plan 1. Pancreatitis Acute, new onset since Tuesday of epigastric and right upper quadrant pain *Patient had a cholecystectomy in 1996 and reports having lodged stones in 2002 requiring ERCP. *MRCP demonstrated dilated common bile duct, which may be physiologic after cholecystectomy. No evidence of choledocholithiasis or obstructing mass. *Decrease LR to 75cc/hr. *Continue IV pain medication and antiemetics. *Start clear liquids today. *Repeat lipase, CBC and CMP in the am. 2. Abdominal pain Acute, new onset, likely secondary to pancreatitis *Plan as above. 3. Chronic diastolic HF (heart failure) Chronic, no echo noted in system *Monitor for signs of fluid overload while on IVF. 4. Factor V deficiency Chronic, with past history of DVT and PE *Continue Xarelto at current dose. *Patient reports that she has an IVC filter but it has been dislodged for quite some time. 5. Migraine Chronic *Continue current home medication. DVT prophylaxis with Xarelto. Code status: Full Code. Labs, diagnostic test and progress notes reviewed as noted in HPI. Plan of care discussed with patient. All questions answered. Patient verbalizes understanding and is agreeable with plan of care. This case was discussed with collaborating physician, Dr. Molina Valle. Time Spent 35 minutes Digitally Signed by YANIRA BURCH on 03/09/2023 12:17 PM [facility]06-20-2023 Note ORIGINAL EXAMINATION: MRC03/08/2023 1:41 pm TECHNIQUE: MRCP was performed without the administration of intravenous contrast. COMPARISON: CT abdomen pelvis 03/07/2023 HISTORY: ORDERING SYSTEM PROVIDED HISTORY: Reason for Exam: chronic pancreatitis with necrosis FINDINGS: Multifocal areas within the liver exhibit loss of signal on out of phase imaging could relate to focal fatty sparing. No intrahepatic biliary dilatation. Gall bladder is surgically absent. Common bile duct is dilated and measures 1.1 cm in diameter. Pancreatic duct is normal in caliber. No choledocholithiasis or obstructing mass within the common bile duct. Heterogeneous signal intensity within the enlarged and edematous pancreas compatible with sequelae of necrotizing pancreatitis. Small peripancreatic fluid noted. IMPRESSION: Dilated common bile duct, which may be physiologic after cholecystectomy. No evidence of choledocholithiasis or obstructing mass. I have personally reviewed the images of this examination and agree with the resident's findings and interpretation. RECOMMENDATIONS: Unavailable Interpreted by: Rafael Canales Preliminary Report By: Andrea Ceron Electronically signed By Rafael Canales Dictated Date: 03/08/2023 4:11:06 PM Prelim Date: 03/08/2023 4:25:26 PM Sign Date: 03/08/2023 7:52:37 PM Ordering Provider: SUJATHA HERNANDEZ [facility]06-20-2023 Evaluation + Plan noteExtracted from: Title:History and Physical Author:YANIRA BURCH Date:03/08/23 1. Pancreatitis Acute, new onset since Tuesday of epigastric and right upper quadrant pain *Patient had a cholecystectomy in 1996 and reports having lodged stones in 2002 requiring ERCP. *Send for MRCP today. *Continue LR @ 125cc/hr. *Continue IV pain medication and antiemetics. *Keep patient NPO for today - consider starting clear liquids this evening or in am. *Repeat lipase, CBC and CMP in the am. 2. Abdominal pain Acute, new onset, likely secondary to pancreatitis *Plan as above. 3. Chronic diastolic HF (heart failure) Chronic, no echo noted in system *Monitor for signs of fluid overload while on IVF. 4. Factor V deficiency Chronic, with past history of DVT and PE *Continue Xarelto at current dose. *Patient reports that she has an IVC filter but it has been dislodged for quite some time. 5. Migraine Chronic *Continue current home medication. DVT prophylaxis with Xarelto. Code status: Full Code. Labs, diagnostic test and progress notes reviewed as noted in HPI. Plan of care discussed with patient. All questions answered. Patient verbalizes understanding and is agreeable with plan of care. This case was discussed with collaborating physician, Dr. Molina Valle. Future Appointments Appointment Date:03/14/2023 01:00:00 PM Scheduled Provider:CJ RIVERA Location:[facility] Appointment Type:[facility] Hospital Follow-Up Appointment Date:04/18/2023 03:30:00 PM Scheduled Provider:CJ RIVERA Location:[facility] Appointment Type:[facility] Future Scheduled Tests Laboratory* Basic Metabolic Panel 12/07/22 * Magnesium Level 12/07/22 * Complete Blood Count 12/07/22 * Lipid Profile 06/09/22 * Vitamin D Level 06/09/22 * Complete Metabolic Panel 06/09/22 * N-Terminal proBNP 12/07/22 [facility] 06-20-2023 Note ORIGINAL EXAMINATION: MRC03/08/2023 1:41 pm TECHNIQUE: MRCP was performed without the administration of intravenous contrast. COMPARISON: CT abdomen pelvis 03/07/2023 HISTORY: ORDERING SYSTEM PROVIDED HISTORY: Reason for Exam: chronic pancreatitis with necrosis FINDINGS: Multifocal areas within the liver exhibit loss of signal on out of phase imaging could relate to focal fatty sparing. No intrahepatic biliary dilatation. Gall bladder is surgically absent. Common bile duct is dilated and measures 1.1 cm in diameter. Pancreatic duct is normal in caliber. No choledocholithiasis or obstructing mass within the common bile duct. Heterogeneous signal intensity within the enlarged and edematous pancreas compatible with sequelae of necrotizing pancreatitis. Small peripancreatic fluid noted. IMPRESSION: Dilated common bile duct, which may be physiologic after cholecystectomy. No evidence of choledocholithiasis or obstructing mass. I have personally reviewed the images of this examination and agree with the resident's findings and interpretation. RECOMMENDATIONS: Unavailable Interpreted by: Rafael Canales Preliminary Report By: Andrea Ceron Electronically signed By Rafael Canales Dictated Date: 03/08/2023 4:11:06 PM Prelim Date: 03/08/2023 4:25:26 PM Sign Date: 03/08/2023 7:52:37 PM Ordering Provider: [facility]06-20-2023 Note Date of Service 03/08/2023 Chief Complaint abd pain with hx pancreatitis History of Present Illness Patient is a 47-year-old female, who follows with Cj Rivera CNP with a past medical history significant for chronic diastolic heart failure, factor V deficiency, depression, and migraines, presented to [facility] emergency department with the chief complaint of abdominal pain. She states that she developed abdominal pain on Tuesday that continued to worsen yesterday. She statesthe pain is in the epigastric region and right-sided upper quadrant pain radiating into her chest and below her right shoulder blade. The pain is dull and aching and typically ranges from 6 to 8 before medication. Patient was in the [facility] ED with abdominal pain in early January and diagnosedwith pancreatitis. She states she was told it was not too bad and was discharged home. She was admitted to [facility] for pancreatitis about a month ago. She adds that the pain is worse with eating and improves after she has a bowel movement. Patient had a cholecystectomy in 2002 and denies any recent alcohol use. She also denies any fever, chills, cough, shortness of breath, chest pain, nausea or dysuria. She is scheduled in to see GI but not until June. In the emergency department, CT of the abdomen/pelvis revealed sequelae of pancreatitis, including peripancreatic fat stranding and areas of heterogeneous and non-enhancement of the pancreatic parenchyma, concerning for sequelae of pancreatic necrosis. Difficult to exclude pancreatic centered fluidcollection. EKG revealed sinus rhythm. White blood cell count 14.5. CBC otherwise unremarkable. BMPsignificant for creatinine 1.03. Troponin negative. Urinalysis unremarkable. Lipase 218. Patient was administered 1 liter of NS, 4 mg Zofran IV, 4 mg morphine IV and 0.5 mg diluadid IV in the ED. Shewas transferred to medical surgical unit for observation. We will send patient for MRCP today to rule out a lodged stone. We will keep patient NPO for today. We will check lipid profile and CKMB. We will continue IV pain medication and antiemetics. We will repeat lipase level. Repeat CBC and CMP inthe am. Review of Systems Review of Systems: Reviewed in detail, including general health, HEENT, cardiovascular, respiratory, gastrointestinal, genitourinary, endocrine, musculoskeletal, neurologic, vascular, skin, and psychiatric. All are negative except for those listed in the History of Present Illness. Physical Exam Vitals and Measurements T: 36.8 C (Oral) TMIN: 36.7 C (Oral) TMAX: 37.4 C (Oral) HR: 67(Apical) RR: 18 BP: 128/75 SpO2: 94%HT: 160 cm WT: 98.1 kg BMI: 38.32 Weight Current Weight Dosing Weight: 98.1 kg (03/07/23) Current Weight: 98.1 kg (03/08/23) General: No acute distress. Patient is alert and appropriate. Skin: No rash. Skin is warm, dry and intact. HEENT: Head is normocephalic, atraumatic. Pupils are equal, round and reactive. joni: Supple. No lymphadenopathy, thyromegaly. Lungs: Bilaterally clear but diminished without crepitation or wheeze. Unlabored. Heart: Heart is regular rhythm, S1, S2. No murmurs, gallops or rubs. Abdomen: Abdomen is soft, with mild tenderness in epigastric region and right upper quadrant. Bowelsounds present in all quadrants. Extremities: No clubbing, cyanosis, or edema. Peripheral pulses palpable. No calf tenderness. Neurological: Patient is awake and alert to person, place and time. Following simple commands, moving all extremities. Lab Results 03/08 07:52 WBC: 7.3 Hgb: 12.4 Hct: 37.2 Platelet: 318 Neutrophil %: 58.6 Glucose Level: 101 Sodium Level: 141 Potassium Level: 3.6 BUN: 11 Creatinine Lvl (s): 0.77 03/07 19:39 WBC: 14.5 H Hgb: 13.4 Hct: 40.4 Platelet: 351 Neutrophil %: 76.1 Glucose Level: 92 Sodium Level: 142 Potassium Level: 3.5 BUN: 12 Creatinine Lvl (s): 1.03 H Imaging Results and Diagnostics CT Abd/Pelvis w/ IV Contrast Only Result Date: March 07, 2023 Verified By: RAFAEL CANALES MD CLINICAL STATEMENT: IMPRESSION: Sequelae of pancreatitis, including peripancreatic fat stranding and areas of heterogeneous and non-enhancement of the pancreatic parenchyma, concerning for sequelae of pancreatic necrosis. Difficult to exclude pancreatic centered fluid collection. Assessment/Plan 1. Pancreatitis Acute, new onset since Tuesday of epigastric and right upper quadrant pain *Patient had a cholecystectomy in 1996 and reports having lodged stones in 2002 requiring ERCP. *Send for MRCP today. *Continue LR @ 125cc/hr. *Continue IV pain medication and antiemetics. *Keep patient NPO for today - consider starting clear liquids this evening or in am. *Repeat lipase, CBC and CMP in the am. 2. Abdominal pain Acute, new onset, likely secondary to pancreatitis *Plan as above. 3. Chronic diastolic HF (heart failure) Chronic, no echo noted in system *Monitor for signs of fluid overload while on IVF. 4. Factor V deficiency Chronic, with past history of DVT and PE *Continue Xarelto at current dose. *Patient reports that she has an IVC filter but it has been dislodged for quite some time. 5. Migraine Chronic *Continue current home medication. DVT prophylaxis with Xarelto. Code status: Full Code. Labs, diagnostic test and progress notes reviewed as noted in HPI. Plan of care discussed with patient. All questions answered. Patient verbalizes understanding and is agreeable with plan of care. This case was discussed with collaborating physician, Dr. Molina Valle. Problem List/Past Medical History Ongoing Anxiety Chronic constipation Chronic diastolic HF (heart failure) Clotting disorder Depression DVT - Deep vein thrombosis Dyslipidemia Dyspnea on exertion Dysuria Edema Elevated fasting glucose Factor V deficiency GI bleed Hallucinations History of ESBL E. coli infection Ischemic colitis Major depressive disorder, severe Migraine Palpitation Pancreatitis Psychosis Pulmonary emboli Recurrent UTI Right ear impacted cerumen Screening for breast cancer Screening for ischemic heart disease Seizure disorder Small bowel obstruction Stroke Vitamin D deficiency Weight gain Historical Bipolar 1 disorder Elevated liver enzymes High blood pressure History of MRSA infection Preoperative clearance Procedure/Surgical History Prescription event monitorin08/31/20 Cardiovascular stress testin08/07/20 Cardiovascular stress testin08/07/20 Cardiac echo: 02/14/20 Cardiac echo: 01/20/18 Cardiac echo: 01/17/18 Abdominal hysterectomy section Appendectomy Cholecystectomy section Filter Tonsillectomy ERCP Medications Home Medications (27) Active APAP/butalbital/caffeine 325-50-40 mg oral tablet (Fioricet) 1 tab(s), PRN, Oral, q4h APAP/butalbital/caffeine 325-50-40 mg oral tablet (Fioricet) 1 tab(s), PRN, Oral, q4h cholecalciferol 1250 mcg (50,000 intl units) oral capsule 1,250 mcg = 1 cap(s), Oral, Tuesday clonazePAM 0.5 mg oral tablet 0.5 mg = 1 tab(s), PRN, Oral, qDay cloNIDine 0.2 mg oral tablet 0.2 mg = 1 tab(s), Oral, qDay dicyclomine 10 mg oral capsule 10 mg = 1 cap(s), Oral, QID fenofibrate 145 mg oral tablet 145 mg = 1 tab(s), Oral, qDay furosemide 40 mg oral tablet 40 mg = 1 tab(s), Oral, qDay hydroCHLOROthiazide 25 mg oral tablet 25 mg = 1 tab(s), Oral, qDay lacosamide 100 mg oral tablet 100 mg = 1 tab(s), Oral, qAM lacosamide 100 mg oral tablet 200 mg = 2 tab(s), Oral, qPM lactulose 10 g/15 mL oral syrup 10 gram(s) = 15 mL, PRN, Oral, BID Linzess 290 mcg oral capsule 290 mcg = 1 cap(s), Oral, qDay Macrobid 100 mg oral capsule 100 mg = 1 cap(s), PRN, Oral, qDay magnesium salicylate 600 mg oral tablet 600 mg = 1 tab(s), Oral, q4h methenamine hippurate 1 g oral tablet 1 gram(s) = 1 tab(s), Oral, qDay methenamine hippurate 1 g oral tablet 1 gram(s) = 1 tab(s), Oral, qDay metoprolol tartrate 25 mg oral tablet 25 mg = 1 tab(s), Oral, BID omeprazole 40 mg oral delayed release capsule 40 mg = 1 cap(s), Oral, BID potassium chloride 20 mEq oral tablet, extended release 20 mEq = 1 tab(s), Oral, TID promethazine 25 mg oral tablet 25 mg = 1 tab(s), PRN, Oral, q6h rOPINIRole 0.5 mg oral tablet 0.5 mg = 1 tab(s), Oral, BID valACYclovir 500 mg oral tablet 500 mg = 1 tab(s), Oral, qDay venlafaxine 150 mg oral capsule, extended release 150 mg = 1 cap(s), Oral, qDay venlafaxine 75 mg oral capsule, extended release 75 mg = 1 cap(s), Oral, qDay Vitamin C 1000 mg oral tablet 1,000 mg = 1 tab(s), Oral, qDay Xarelto 10 mg oral tablet 10 mg = 1 tab(s), Oral, qDay Allergies penicillin (Rash) Neurontin (Vomiting) sulfa drug Social History Smoking Status - 07/06/2018 Current every day smoker Alcohol - Low Risk, 09/16/2017 Use: Past., 07/18/2019 Employment/School Status: Unemployed., 03/07/2020 Exercise Days per week: 1-2 times/week., 03/07/2020 Home/Environment Domestic Concerns: Denies. Living situation: Home/Independent. 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 Lives In: 1st floor bedroom, 1st floor bathroom, 2 steps to enter home. Current Home Treatments None. Professional Skilled Services or Special Community Resources None. Financial concerns: No.Marital Status: Unmarried., 03/07/2023 Nutrition/Health Type of diet: Regular. Appetite Good. Eating Difficulties None. Enteral Feedings No. TPN Feedings No. Skin Breakdown No. Caffeine intake amount: soda x 2 servings / daily., 05/29/2021 Sexual Self described orientation: Straight or heterosexual., 03/07/2023 Substance Abuse - High Risk, 10/19/2022 Use: Current. Type: Marijuana. Frequency: 1-2 times per week., 10/19/2022 Use: Past. Type: Prescription medications., 04/06/2021 Tobacco - High Risk, 01/04/2019 Tobacco Use: use a vape pen uses it daily. Type: Electronic Cigarettes., 01/25/2019 Family History HTN - Hypertension: Mother. Heart disease: Father. Hyperlipidemia: Mother. Immunizations No qualifying data available. Code Status Code Status - Ordered -- 03/07/23 22:38:00 EDT, Full Code, Constant Order Digitally Signed by YANIRA BURCH on 03/08/2023 12:14 PM [facility]06-19-2023 Note ORIGINAL EXAMINATION: CT OF THE ABDOMEN AND PELVIS WITH CONTRAST 03/07/2023 9:07 pm TECHNIQUE: CT of the abdomen and pelvis was performed with the administration of intravenous contrast. Multiplanar reformatted images are provided for review. Automated exposure control, iterative reconstruction, and/or weight based adjustment of the mA/kV was utilized to reduce the radiation dose to as low as reasonably achievable. COMPARISON: None. HISTORY: ORDERING SYSTEM PROVIDED HISTORY: Reason for Exam: pain FINDINGS: Lower Chest: Lung bases are clear. Organs: Suggested transient hepatic attenuation differences. Subcentimeter hypodensity in the right hepatic lobe medially, could be a cyst or small hemangioma. The spleen and adrenal glands are unremarkable. Heterogeneous enhancement to the pancreas with areas of lobular nonenhancement. Mild surrounding peripancreatic fat stranding. Splenic vein and portal vein are patent. Kidneys enhance symmetrically. No hydronephrosis or hydroureter. GI/Bowel: No bowel obstruction, pneumoperitoneum, or ascites. Appendix is not definitively identified. Fluid in the proximal colon nonspecific. Pelvis: Bladder unremarkable. Uterus not visualized. Peritoneum/Retroperitoneum: Nonaneurysmal abdominal aorta. Mildly prominent subcentimeter peripancreatic lymph nodes. Bones/Soft Tissues: No acute osseous abnormality. IMPRESSION: Sequelae of pancreatitis, including peripancreatic fat stranding and areas of heterogeneous and non-enhancement of the pancreatic parenchyma, concerning for sequelae of pancreatic necrosis. Difficult to exclude pancreatic centered fluid collection. Interpreted by: Rafael Canales Preliminary Report By: Rafael Canales Electronically signed By Rafael Canales Dictated Date: 03/07/2023 9:08:59 PM Prelim Date: 03/07/2023 9:14:40 PM Sign Date: 03/07/2023 9:14:40 PM Ordering Provider: ROBERTO BIRMINGHAM [facility]06-19-2023 Note ORIGINAL EXAMINATION: CT OF THE ABDOMEN AND PELVIS WITH CONTRAST 03/07/2023 9:07 pm TECHNIQUE: CT of the abdomen and pelvis was performed with the administration of intravenous contrast. Multiplanar reformatted images are provided for review. Automated exposure control, iterative reconstruction, and/or weight based adjustment of the mA/kV was utilized to reduce the radiation dose to as low as reasonably achievable. COMPARISON: None. HISTORY: ORDERING SYSTEM PROVIDED HISTORY: Reason for Exam: pain FINDINGS: Lower Chest: Lung bases are clear. Organs: Suggested transient hepatic attenuation differences. Subcentimeter hypodensity in the right hepatic lobe medially, could be a cyst or small hemangioma. The spleen and adrenal glands are unremarkable. Heterogeneous enhancement to the pancreas with areas of lobular nonenhancement. Mild surrounding peripancreatic fat stranding. Splenic vein and portal vein are patent. Kidneys enhance symmetrically. No hydronephrosis or hydroureter. GI/Bowel: No bowel obstruction, pneumoperitoneum, or ascites. Appendix is not definitively identified. Fluid in the proximal colon nonspecific. Pelvis: Bladder unremarkable. Uterus not visualized. Peritoneum/Retroperitoneum: Nonaneurysmal abdominal aorta. Mildly prominent subcentimeter peripancreatic lymph nodes. Bones/Soft Tissues: No acute osseous abnormality. IMPRESSION: Sequelae of pancreatitis, including peripancreatic fat stranding and areas of heterogeneous and non-enhancement of the pancreatic parenchyma, concerning for sequelae of pancreatic necrosis. Difficult to exclude pancreatic centered fluid collection. Interpreted by: Rafael Canales Preliminary Report By: Rafael Canales Electronically signed By Rafael Canales Dictated Date: 03/07/2023 9:08:59 PM Prelim Date: 03/07/2023 9:14:40 PM Sign Date: 03/07/2023 9:14:40 PM Ordering Provider: [facility]05-09-2023 Hospital Discharge instructions Patient Education 01/25/2023 14:40:57 Conversion Disorder (Conversion Reaction) Conversion Disorder (Conversion Reaction) You are showing signs of conversion disorder. This happens when stress or conflict triggers physical symptoms. It may in some ways look like a neurological disorder, but is not. Symptoms include: Not being able to move or feel parts of your body Not being able to stand or walk normally Movement of your body that feels out of your control Loss of normal speech, sight, or hearing Trouble urinating or swallowing Tremors (shaking) or non-epileptic seizures (convulsions) In the ER, you will probably have some tests done to make sure there are not other causes of your symptoms. You may also be given medicines to help relax you. The main treatment for conversion disorder is counseling. This can be arranged through your doctor. Our staff may also give you referrals tosomeone you can talk to. Home care If you have been given medicine, take it as you have been told to by the doctor or hospital staff. Tell each of your healthcare providers about all of the prescription medicines, mlhj-csb-rromhty medicines, vitamins, and supplements you take. Certain supplements interact with medicines and may result in dangerous side effects. Ask your pharmacist when you have questions about medicine interactions. Symptoms of conversion disorder most often improve over a period of a few weeks without specific medicine. The main treatment for conversion disorder is psychotherapy or counseling. This can include individual and group therapy. Medicine may be used to treat anxiety or depression. Other treatments that might help include physical therapy, hypnosis and relaxation. Follow-up care Follow up with your healthcare provider, or as advised. If X-rays or a CT scan were done, and a radiologist had not seen them while you were there, they will be reviewed, and you will be notified if there is a change in the reading, especially if it affects treatment. Call 911 Call 911 if any of these occur: Trouble breathing Very confused Very drowsy or trouble awakening Fainting or loss of consciousness Rapid heart rate Seizure When to seek medical advice Call your healthcare provider right away if any of the following occur: Worsening of your symptoms or symptoms not improving over time New symptoms Desire to harm yourself or others [phone] [employer]. [address] [place] [address]. All rights reserved. This information is not intended as a substitute for professional medical care. Always follow [facility] instructions. 01/25/2023 14:40:43 Hyperglycemia (High Blood Sugar) Hyperglycemia (High Blood Sugar) Too much glucose (sugar) in your blood is called hyperglycemia or high blood sugar. High blood sugar can lead to a dangerous condition called ketoacidosis. In severe cases, it can lead to coma. Possible Causes of Hyperglycemia Inadequate treatment plan for diabetes Being sick Being under stress Taking certain medications, such as steroids Eating too much food, especially carbohydrates Being less active than usual Not taking enough diabetes medication Symptoms of Hyperglycemia Hyperglycemia may not cause symptoms. If you do have symptoms, they may include: Thirst Frequent need to urinate Feeling tired Nausea Itchy, dry skin Blurry vision Fast breathing Weakness Dizziness Wounds or skin infections that don t heal Unexplained weight loss if hyperglycemia lasts for more than a few days What You Should Do Check your blood sugar. Drink plenty of sugar-free, caffeine-free liquids such as water. Don t drink fruit juice. Check your blood sugar again every 4 hours. If you take insulin or diabetes medications, follow your sick-day plan for taking medication. Call your healthcare provider if you are not able to eat. Check your blood or urine for ketones as directed. Call your health care provider if your blood sugar and ketones do not return to your target range. Preventing High Blood Sugar To help keep your blood sugar from getting too high: Control stress. When you're ill, follow your sick-day plan. Follow your meal plan. Eat only the amount of food on your meal plan Follow your exercise plan. Take your insulin or diabetes medications as directed by you health care team. Also test your bloodsugar as directed. If the plan is not working for you, discuss it with your doctor. Other Things to Do Carry a medical ID card or wear a medical alert bracelet. It should say that you have diabetes. It should also say what to do in case you pass out or go into a coma. Make sure family, friends, and coworkers know the signs of high blood sugar. Tell them what to do if your blood sugar gets very high and you can t help yourself. Talk to your health care team about other things you can do to prevent high blood sugar. Special note: Drink plenty of sugar-free and caffeine-free liquids when you feel symptoms of hyperglycemia. Call your doctor if you keep having episodes of hyperglycemia. [phone] [employer]. [address] [place] [address], [place] [address]. All rights reserved. This information is not intended as a substitute for professional medical care. Always follow [facility] professional's instructions. 01/25/2023 14:40:39 High Cholesterol High Cholesterol High cholesterol is also called hypercholesterolemia. Cholesterol and dietary fat are not the same thing. But, it s important to understand how the fat in your diet affects your cholesterol level. Your body needs cholesterol to build new cells and make certain hormones. There are 2 kinds of cholesterol in your body: HDL ( good ) cholesterol stops fatty deposits (plaque) from building up in your arteries. In this way it protects you against heart disease and stroke. LDL ( bad ) cholesterol stays in your body and sticks to artery pierre. It may later block blood flow to your heart and brain. This can cause a heart attack (acute myocardial infarction) or stroke. Your body makes all the cholesterol it needs. But you also get cholesterol from many of the foods you eat. This is why you want to limit how much cholesterol you get in your diet and how much fat youeat. That s because the cholesterol your body makes from the fat you eat creates the most risk for disease. The type of fat you eat has the biggest influence on how much cholesterol your body makes. Fats come in 2 kinds: Good fats are the unsaturated fats. These are also called monounsaturated and polyunsaturated fats.They raise the level of good cholesterol and lower the level of bad cholesterol. Good fats are found in vegetable oils like olive, sunflower, corn, and soybean oils, and in nuts and seeds. Bad fats are saturated fats and trans fats. These raise the risk for disease. They lower the good cholesterol and raise the level of bad cholesterol. Bad fats are found in all red meat and whole-milkdairy products. Some plants also have a lot of saturated fats such as coconut and palm plants. Trans fats are found in stick margarines and many fast foods and commercially baked goods. Soft margarine sold in tubs has less trans fat and is safer to use. Trans fat in particular raise bad cholesteroland lowers good cholesterol. You can have high blood cholesterol if you eat a diet high in saturated fat and don t get much exercise. In some cases, your family history plays a role. Your health care provider can diagnose high cholesterol with blood tests. Treatment consists of a diet low in saturated fat, weight loss, and exercise. If these efforts don t lower your cholesterol, your provider may prescribe medicines. They must be taken daily to keep your cholesterol levels low. Being overweight also raises the risk for high cholesterol and heart disease. Losing even a small amount of weight can help lower your risk. High risk groups Certain groups of people should talk to their healthcare provider about using cholesterol-lowering statin medicines for controlling their cholesterol to stay healthy or to prevent future heart attacks or stroke. It may be beneficial to take a medicine in addition to eating a healthy diet and exercising regularly for these groups. The major groups include: Adults who have had a heart attack or stroke or some other atherosclerotic disease (such as peripheral vascular disease), a transient ischemic attack, stable or unstable angina, and anyone who has had a procedure to restore blood flow through a blocked artery such as percutaneous coronary intervention, angioplasty, stent, open-heart bypass surgery. Adults who have diabetes or an elevated calculated risk of having a heart attack or stroke (7.5%) and an elevated level of LDL cholesterol 70-189 mg/dL. People who are 21 years of age and older who have an elevated LDL cholesterol level of 190 mg/dL orhigher Home care Follow these guidelines when caring for yourself at home: Talk with your health care provider before starting a low-cholesterol diet or weight-loss program. In general, a low-cholesterol diet means that you eat less saturated fat (red meat and regular dairy) and less cholesterol each day. You may eat foods with unsaturated fats (vegetable oils, nuts, andseeds). Eat more fruits, vegetables, fish, and whole grains, or other high-fiber foods. Learn to read food labels so you know what you are eating. A registered dietitian can teach you how to plan meals and change your diet. You can ask your provider for a referral. Aim for 40 minutes of moderate to vigorous physical activity 3 to 4 times a week. Pick activities you enjoy. Walking is a good choice if you want to lose weight. If you have diabetes, hypertension, or heart disease, talk with your provider to see what activities he or she recommends. If your provider has prescribed medicines, take them as directed. If you smoke, talk with your provider about how to quit smoking. Smoking lowers good cholesterol levels and can increase damage done by bad cholesterol. Limit how much alcohol you drink. If you have diabetes, talk with your provider and a dietitian about other food and lifestyle changes you can make to lower your risk for heart disease and stroke. Follow-up care Follow up with your healthcare provider, or as advised. It takes at least 3 months for dietary changes to show a result in your blood cholesterol. Have repeat blood testing as advised by your provider. If an X-ray or ECG (electrocardiogram) was done, a specialist will look at it. You will be told of any new findings that may affect your care. When to seek medical advice Call your healthcare provider right away if any of these occur: Chest, arm, shoulder, neck, or upper back pain Shortness of breath Weakness or numbness of an arm, leg, or one side of the face Trouble with speech or vision Weakness, dizziness, or fainting Talk to your healthcare provider about your treatment goals. Make sure you understand how cholesterol impacts you based on your personal health history and family history of heart disease or high cholesterol. Plan to have regular monitoring and follow up on any side effects that you may develop to the cholesterol-lowering medicines. Be aware that sometimes you may need more than one medicine to reach your cholesterol goals. Also make sure you understand how to prepare for your cholesterol testing which may or may not require fasting. [phone] [employer]. [address] [place] [address], [place] [address]. All rights reserved. This information is not intended as a substitute for professional medical care. Always follow [facility] professional's instructions. 01/25/2023 14:40:35 Abdominal Pain, Unknown Cause, (Female) Unknown Causes of Abdominal Pain (Female) The exact cause of your belly (abdominal) pain is not clear. This does not mean that this is something to worry about. Everyone likes to know the exact cause of the problem. But sometimes with belly pain, there is no clear-cut cause, and this could be a good thing. The good news is that your symptoms can be treated, and you will feel better. Your condition does not seem serious now. But sometimes the signs of a serious problem may take more time to appear. For this reason, it is important for you to watch for any new symptoms, problems, or worsening of your condition. Over the next few days, the abdominal pain may come and go. Or it may be constant. Other common symptoms can include nausea and vomiting. Sometimes it can be difficult to tell if you feel nauseous. You may just feel bad and not connect that feeling to nausea. Constipation, diarrhea, and a fever maygo along with the pain. The pain may continue even if treated correctly over the following days. Depending on how things go, sometimes the cause can become clear and may need more or different treatment. Additional evaluations, medicines, or tests may also be needed. Home care Your healthcare provider may prescribe medicine for pain, symptoms, or an infection. Follow the healthcare provider's instructions for taking these medicines. General care Rest as much as you can until your next exam. No strenuous activities. Try to find positions that ease discomfort. A small pillow placed on the abdomen may help relieve pain. Something warm on your abdomen (such as a heating pad) may help, but be careful not to burn yourself. Diet Don t force yourself to eat, especially if having cramps, vomiting, or diarrhea. Water is important so you don't get dehydrated. Soup may also be good. Sports drinks may also help,especially if they are not too acidic. Don't drink sugary drinks as this can make things worse. Take liquids in small amounts. Don t guzzle them. Caffeine sometimes makes the pain and cramping worse. Don t take dairy products if you have vomiting or diarrhea. Don't eat large amounts at a time. Wait a few minutes between bites. Eat a diet low in fiber (called a low-residue diet). Foods allowed include refined breads, white rice, fruit and vegetable juices without pulp, tender meats. These foods will pass more easily throughthe intestine. Don t have whole-grain foods, whole fruits and vegetables, meats, seeds and nuts, fried or fatty foods, dairy, alcohol and spicy foods until your symptoms go away. Follow-up care Follow up with your healthcare provider, or as advised, if your pain does not begin to improve in the next 24 hours. Call 911 Call 911 if any of these occur: Trouble breathing Confusion Fainting or loss of consciousness Rapid heart rate Seizure When to seek medical advice Call your healthcare provider right away if any of these occur: Pain gets worse or moves to the right lower abdomen New or worsening vomiting or diarrhea Swelling of the abdomen Unable to pass stool for more than 3 days Fever of 100.4 F (38 C) or higher, or as directed by your healthcare provider. Blood in vomit or bowel movements (dark red or black color) Yellow color of eyes and skin (jaundice) Weakness, dizziness Chest, arm, back, neck, or jaw pain Unexpected vaginal bleeding or missed period Can't keep down liquids or water and you are getting dehydrated [id number] [employer]. [address] [place] [address], [place] [address]. All rights reserved. This information is not intended as a substitute for professional medical care. Always follow yourhealthcare professional's instructions. Follow Up Care 01/25/2023 10:20:31 With:CJ RIVERA Address: [address] [facility] [place] [address]- [phone] Business (1) When:2-4 days Comments:Schedule appointment as soon as possibleReturn to ED if symptoms worsenYOU CANNOT DRIVE UNTIL CLEAREDBY YOUR PCP OR NEUROLOGIST.Pedialyte only till am and if no vomiting increase to bland diet. 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 Requested Prescriptions Signed Prescriptions Disp Refills clonazePAM (KLONOPIN) 0.5 mg tablet 10 tablet 0 Sig: Take one tablet as needed for prolonged convulsive seizure or cluster or 3 or more seizures in24 hours. Do not exceed more than 1 tablet per day. 10 tablets per 30 days. Authorizing Provider: ALAINA TOMLIN APRN.CNP [facility] Note Discharge Instructions Thank you for allowing [facility] to assist you with your healthcare needs. The following is importantdischarge information regarding your hospital visit. Diagnosis from Today's Visit Abdominal pain Hypertriglyceridemia Hypercholesterolemia Hyperglycemia Conversion disorder, single episode Abdominal pain What to Do Next Instructions from Your Care Team No qualifying data available. Post Acute Orders No qualifying data available. You Need to Schedule the Following Appointments Follow Up with CJ RIVERA When Within 2-4 days Why: Schedule appointment as soon as possible Return to ED if symptoms worsen YOU CANNOT DRIVE UNTIL CLEAREDBY YOUR PCP OR NEUROLOGIST. Pedialyte only till am and if no vomiting increase to bland diet. 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 What How Much When Instructions Last Dose Unchanged acetaminophen (acetaminophen 500 mg oral tablet) 1 tab(s) by mouth Once a day as needed for as needed for pain Unchanged APAP/ butalbital/ caffeine (APAP/ butalbital/ caffeine 325-50-40 mg oral tablet (Fioricet)) 1 tab(s) by mouth Every 4 hours as needed for as needed in absence of pcp Unchanged ascorbic acid (Vitamin C 1000 mg oral tablet) 1 tab(s) by mouth Once a day Unchanged cholecalciferol (cholecalciferol 1250 mcg (50,000 intl units) oral capsule) 1 cap by mouth Every Tuesday Duration: 90 Days Unchanged clonazePAM (clonazePAM 0.5 mg oral tablet) 1 tab(s) by mouth Once a day as needed for Seizures Unchanged cloNIDine (cloNIDine 0.2 mg oral tablet) 1 tab(s) by mouth Once a day Duration: 90 Days Unchanged dicyclomine (dicyclomine 10 mg oral capsule) 1 cap by mouth Four (4) times a day Duration: 10 Days Unchanged furosemide (furosemide 40 mg oral tablet) 1 tab(s) by mouth Once a day Duration: 90 Days Unchanged lacosamide (lacosamide 100 mg oral tablet) 1 tab(s) by mouth Once a day (in the morning) Unchanged lacosamide (lacosamide 100 mg oral tablet) 2 tab(s) by mouth Once a day (in the evening) Unchanged lactulose (lactulose 10 g/ 15 mL oral syrup) 15 Milliliter by mouth Two (2) times a day Duration: 90 Days Unchanged linaclotide (Linzess 290 mcg oral capsule) 1 cap by mouth Once a day Duration: 90 Days Unchanged magnesium oxide (magnesium oxide 400 mg oral tablet) 1 tab(s) by mouth Once a day Unchanged methenamine (methenamine hippurate 1 g oral tablet) 1 tab(s) by mouth Once a day Duration: 90 Days Unchanged metoprolol (metoprolol tartrate 25 mg oral tablet) 1 tab(s) by mouth Two (2) times a day Duration: 90 Days Unchanged omeprazole (omeprazole 40 mg oral delayed release capsule) 1 cap by mouth Two (2) times a day Duration: 90 Days Unchanged ondansetron (ondansetron 4 mg oral tablet, disintegrating) 1 tab(s) by mouth Every 6 hours as needed for Nausea/Vomiting Duration: 10 Days Unchanged potassium chloride (potassium chloride 20 mEq oral tablet, extended release) 1 tab(s) by mouth Three (3) times a day Duration: 90 Days Unchanged rivaroxaban (Xarelto 10 mg oral tablet) 1 tab(s) by mouth Once a day Duration: 90 Days Unchanged rOPINIRole (rOPINIRole 0.5 mg oral tablet) 1 tab(s) by mouth Two (2) times a day Duration: 90 Days Unchanged valACYclovir (valACYclovir 500 mg oral tablet) 1 tab(s) by mouth Once a day Duration: 90 Days Unchanged venlafaxine (venlafaxine 150 mg oral capsule, extended release) 1 cap by mouth Once a day Duration: 90 Days for a total of 225 mg/ day. Unchanged venlafaxine (venlafaxine 75 mg oral capsule, extended release) 1 cap by mouth Once a day Duration: 90 Days for a total of 225 mg/ day. Please take this list to your next doctor s visit. Bring all medications you take, including over the counter medications, herbals and other supplements with you to your doctor s visit. Patients and families are reminded to discard old lists and to update any records with all medication providers or retail pharmacies. Education Materials Conversion Disorder (Conversion Reaction) You are showing signs of conversion disorder. This happens when stress or conflict triggers physical symptoms. It may in some ways look like a neurological disorder, but is not. Symptoms include: Not being able to move or feel parts of your body Not being able to stand or walk normally Movement of your body that feels out of your control Loss of normal speech, sight, or hearing Trouble urinating or swallowing Tremors (shaking) or non-epileptic seizures (convulsions) In the ER, you will probably have some tests done to make sure there are not other causes of your symptoms. You may also be given medicines to help relax you. The main treatment for conversion disorder is counseling. This can be arranged through your doctor. Our staff may also give you referrals tosomeone you can talk to. Home care If you have been given medicine, take it as you have been told to by the doctor or hospital staff. Tell each of your healthcare providers about all of the prescription medicines, opxr-[id number] medicines, vitamins, and supplements you take. Certain supplements interact with medicines and may result in dangerous side effects. Ask your pharmacist when you have questions about medicine interactions. Symptoms of conversion disorder most often improve over a period of a few weeks without specific medicine. The main treatment for conversion disorder is psychotherapy or counseling. This can include individual and group therapy. Medicine may be used to treat anxiety or depression. Other treatments that might help include physical therapy, hypnosis and relaxation. Follow-up care Follow up with your healthcare provider, or as advised. If X-rays or a CT scan were done, and a radiologist had not seen them while you were there, they will be reviewed, and you will be notified if there is a change in the reading, especially if it affects treatment. Call 911 Call 911 if any of these occur: Trouble breathing Very confused Very drowsy or trouble awakening Fainting or loss of consciousness Rapid heart rate Seizure When to seek medical advice Call your healthcare provider right away if any of the following occur: Worsening of your symptoms or symptoms not improving over time New symptoms Desire to harm yourself or others [id number] [employer]. [address] [place] [address], [place] [address]. All rights reserved. This information is not intended as a substitute for professional medical care. Always follow yourhealthcare professional's instructions. Hyperglycemia (High Blood Sugar) Too much glucose (sugar) in your blood is called hyperglycemia or high blood sugar. High blood sugar can lead to a dangerous condition called ketoacidosis. In severe cases, it can lead to coma. Possible Causes of Hyperglycemia Inadequate treatment plan for diabetes Being sick Being under stress Taking certain medications, such as steroids Eating too much food, especially carbohydrates Being less active than usual Not taking enough diabetes medication Symptoms of Hyperglycemia Hyperglycemia may not cause symptoms. If you do have symptoms, they may include: Thirst Frequent need to urinate Feeling tired Nausea Itchy, dry skin Blurry vision Fast breathing Weakness Dizziness Wounds or skin infections that don t heal Unexplained weight loss if hyperglycemia lasts for more than a few days What You Should Do Check your blood sugar. Drink plenty of sugar-free, caffeine-free liquids such as water. Don t drink fruit juice. Check your blood sugar again every 4 hours. If you take insulin or diabetes medications, follow your sick-day plan for taking medication. Call your healthcare provider if you are not able to eat. Check your blood or urine for ketones as directed. Call your health care provider if your blood sugar and ketones do not return to your target range. Preventing High Blood Sugar To help keep your blood sugar from getting too high: Control stress. When you're ill, follow your sick-day plan. Follow your meal plan. Eat only the amount of food on your meal plan Follow your exercise plan. Take your insulin or diabetes medications as directed by you health care team. Also test your bloodsugar as directed. If the plan is not working for you, discuss it with your doctor. Other Things to Do Carry a medical ID card or wear a medical alert bracelet. It should say that you have diabetes. It should also say what to do in case you pass out or go into a coma. Make sure family, friends, and coworkers know the signs of high blood sugar. Tell them what to do if your blood sugar gets very high and you can t help yourself. Talk to your health care team about other things you can do to prevent high blood sugar. Special note: Drink plenty of sugar-free and caffeine-free liquids when you feel symptoms of hyperglycemia. Call your doctor if you keep having episodes of hyperglycemia. [id number] [employer]. [address] [place] [address], [place] [address]. All rights reserved. This information is not intended as a substitute for professional medical care. Always follow yourhealthcare professional's instructions. High Cholesterol High cholesterol is also called hypercholesterolemia. Cholesterol and dietary fat are not the same thing. But, it s important to understand how the fat in your diet affects your cholesterol level. Your body needs cholesterol to build new cells and make certain hormones. There are 2 kinds of cholesterol in your body: HDL ( good ) cholesterol stops fatty deposits (plaque) from building up in your arteries. In this way it protects you against heart disease and stroke. LDL ( bad ) cholesterol stays in your body and sticks to artery pierre. It may later block blood flow to your heart and brain. This can cause a heart attack (acute myocardial infarction) or stroke. Your body makes all the cholesterol it needs. But you also get cholesterol from many of the foods you eat. This is why you want to limit how much cholesterol you get in your diet and how much fat youeat. That s because the cholesterol your body makes from the fat you eat creates the most risk for disease. The type of fat you eat has the biggest influence on how much cholesterol your body makes. Fats come in 2 kinds: Good fats are the unsaturated fats. These are also called monounsaturated and polyunsaturated fats.They raise the level of good cholesterol and lower the level of bad cholesterol. Good fats are found in vegetable oils like olive, sunflower, corn, and soybean oils, and in nuts and seeds. Bad fats are saturated fats and trans fats. These raise the risk for disease. They lower the good cholesterol and raise the level of bad cholesterol. Bad fats are found in all red meat and whole-milkdairy products. Some plants also have a lot of saturated fats such as coconut and palm plants. Trans fats are found in stick margarines and many fast foods and commercially baked goods. Soft margarine sold in tubs has less trans fat and is safer to use. Trans fat in particular raise bad cholesteroland lowers good cholesterol. You can have high blood cholesterol if you eat a diet high in saturated fat and don t get much exercise. In some cases, your family history plays a role. Your health care provider can diagnose high cholesterol with blood tests. Treatment consists of a diet low in saturated fat, weight loss, and exercise. If these efforts don t lower your cholesterol, your provider may prescribe medicines. They must be taken daily to keep your cholesterol levels low. Being overweight also raises the risk for high cholesterol and heart disease. Losing even a small amount of weight can help lower your risk. High risk groups Certain groups of people should talk to their healthcare provider about using cholesterol-lowering statin medicines for controlling their cholesterol to stay healthy or to prevent future heart attacks or stroke. It may be beneficial to take a medicine in addition to eating a healthy diet and exercising regularly for these groups. The major groups include: Adults who have had a heart attack or stroke or some other atherosclerotic disease (such as peripheral vascular disease), a transient ischemic attack, stable or unstable angina, and anyone who has had a procedure to restore blood flow through a blocked artery such as percutaneous coronary intervention, angioplasty, stent, open-heart bypass surgery. Adults who have diabetes or an elevated calculated risk of having a heart attack or stroke (7.5%) and an elevated level of LDL cholesterol 70-189 mg/dL. People who are 21 years of age and older who have an elevated LDL cholesterol level of 190 mg/dL orhigher Home care Follow these guidelines when caring for yourself at home: Talk with your health care provider before starting a low-cholesterol diet or weight-loss program. In general, a low-cholesterol diet means that you eat less saturated fat (red meat and regular dairy) and less cholesterol each day. You may eat foods with unsaturated fats (vegetable oils, nuts, andseeds). Eat more fruits, vegetables, fish, and whole grains, or other high-fiber foods. Learn to read food labels so you know what you are eating. A registered dietitian can teach you how to plan meals and change your diet. You can ask your provider for a referral. Aim for 40 minutes of moderate to vigorous physical activity 3 to 4 times a week. Pick activities you enjoy. Walking is a good choice if you want to lose weight. If you have diabetes, hypertension, or heart disease, talk with your provider to see what activities he or she recommends. If your provider has prescribed medicines, take them as directed. If you smoke, talk with your provider about how to quit smoking. Smoking lowers good cholesterol levels and can increase damage done by bad cholesterol. Limit how much alcohol you drink. If you have diabetes, talk with your provider and a dietitian about other food and lifestyle changes you can make to lower your risk for heart disease and stroke. Follow-up care Follow up with your healthcare provider, or as advised. It takes at least 3 months for dietary changes to show a result in your blood cholesterol. Have repeat blood testing as advised by your provider. If an X-ray or ECG (electrocardiogram) was done, a specialist will look at it. You will be told of any new findings that may affect your care. When to seek medical advice Call your healthcare provider right away if any of these occur: Chest, arm, shoulder, neck, or upper back pain Shortness of breath Weakness or numbness of an arm, leg, or one side of the face Trouble with speech or vision Weakness, dizziness, or fainting Talk to your healthcare provider about your treatment goals. Make sure you understand how cholesterol impacts you based on your personal health history and family history of heart disease or high cholesterol. Plan to have regular monitoring and follow up on any side effects that you may develop to the cholesterol-lowering medicines. Be aware that sometimes you may need more than one medicine to reach your cholesterol goals. Also make sure you understand how to prepare for your cholesterol testing which may or may not require fasting. [id number] [employer]. [address] [place] [address], [place] [address]. All rights reserved. This information is not intended as a substitute for professional medical care. Always follow yourhealthcare professional's instructions. Unknown Causes of Abdominal Pain (Female) The exact cause of your belly (abdominal) pain is not clear. This does not mean that this is something to worry about. Everyone likes to know the exact cause of the problem. But sometimes with belly pain, there is no clear-cut cause, and this could be a good thing. The good news is that your symptoms can be treated, and you will feel better. Your condition does not seem serious now. But sometimes the signs of a serious problem may take more time to appear. For this reason, it is important for you to watch for any new symptoms, problems, or worsening of your condition. Over the next few days, the abdominal pain may come and go. Or it may be constant. Other common symptoms can include nausea and vomiting. Sometimes it can be difficult to tell if you feel nauseous. You may just feel bad and not connect that feeling to nausea. Constipation, diarrhea, and a fever maygo along with the pain. The pain may continue even if treated correctly over the following days. Depending on how things go, sometimes the cause can become clear and may need more or different treatment. Additional evaluations, medicines, or tests may also be needed. Home care Your healthcare provider may prescribe medicine for pain, symptoms, or an infection. Follow the healthcare provider's instructions for taking these medicines. General care Rest as much as you can until your next exam. No strenuous activities. Try to find positions that ease discomfort. A small pillow placed on the abdomen may help relieve pain. Something warm on your abdomen (such as a heating pad) may help, but be careful not to burn yourself. Diet Don t force yourself to eat, especially if having cramps, vomiting, or diarrhea. Water is important so you don't get dehydrated. Soup may also be good. Sports drinks may also help,especially if they are not too acidic. Don't drink sugary drinks as this can make things worse. Take liquids in small amounts. Don t guzzle them. Caffeine sometimes makes the pain and cramping worse. Don t take dairy products if you have vomiting or diarrhea. Don't eat large amounts at a time. Wait a few minutes between bites. Eat a diet low in fiber (called a low-residue diet). Foods allowed include refined breads, white rice, fruit and vegetable juices without pulp, tender meats. These foods will pass more easily throughthe intestine. Don t have whole-grain foods, whole fruits and vegetables, meats, seeds and nuts, fried or fatty foods, dairy, alcohol and spicy foods until your symptoms go away. Follow-up care Follow up with your healthcare provider, or as advised, if your pain does not begin to improve in the next 24 hours. Call 911 Call 911 if any of these occur: Trouble breathing Confusion Fainting or loss of consciousness Rapid heart rate Seizure When to seek medical advice Call your healthcare provider right away if any of these occur: Pain gets worse or moves to the right lower abdomen New or worsening vomiting or diarrhea Swelling of the abdomen Unable to pass stool for more than 3 days Fever of 100.4 F (38 C) or higher, or as directed by your healthcare provider. Blood in vomit or bowel movements (dark red or black color) Yellow color of eyes and skin (jaundice) Weakness, dizziness Chest, arm, back, neck, or jaw pain Unexpected vaginal bleeding or missed period Can't keep down liquids or water and you are getting dehydrated [id number] [employer]. [address] [place] [address], [place] [address]. All rights reserved. This information is not intended as a substitute for professional medical care. Always follow yourhealthcare professional's instructions. Additional Information VACCINATE! IT SAVES LIVES! Members of the community who have not yet received the COVID-19 vaccine and would like to receive it can visit one of [facility] vaccine clinics. There are many vaccine clinic locations within the [facility]. For locations and available times, please visit [email or web address].[place].gov/. It is important to note that some COVID mobile vaccine clinics are held outdoors and may be canceled in rainy or stormy conditions. To learn more about pediatric vaccinations (ages 5-11), we invite you to visit the [facility] webpage. [email or web address]/[email or web address] learn more about the COVID-19 vaccine, we invite you to visit the CDC website for a list of frequently asked questions. https://www.cdc.gov/coronavirus/2019-ncov/vaccines/faq.html [facility] Patient Portal Access Instructions: Stay connected with your healthcare team and access your personal medical information anytime with the [facility] Patient Portal. If you would like a full copy of your medical records please contact the [facility] Medical Records Department Tuesday through Tuesday between 8a.m. and 4:30p.m. Please follow the directions below to access the portal: 1.Access the email account you provided upon registration to the hospital.2.Look for an invitation email from [facility].3.Open the email and access the invitation link: Accept Invitation to [facility]4.Fill in the required azul to create your account. Sign into [email or web address] with your username and password that you created in the above steps to stay up to date. You can then view a summary of results, a summary of your visits, and the ability to download your summaries to your computer or send the information securely to a physician. Remember that your healthcare information is confidential, so carefully consider who you will allow to register on the [facility] Patient Portal for access to your information. You can also access the [facility] Patient Portal on the [employer] leslie. Simply click on Health Records under [employer] and then click on the [facility] logo. HOW TO SAFELY DISPOSE OF PRESCRIPTION MEDICATIONS Please use one of the following methods to safely dispose of your unused medications. 1.Use a drug disposal kit: the drug disposal pouch allows you to safely discard your old and unuseddrugs. Ask your nurse to give you one when you are discharged.2.Visit a local take-back location: Many local pharmacies and police departments have programs that collect old and unwanted prescriptiondrugs. Call your local pharmacy or go to http://[employer].CMGE/2H0Xw0a to find one close to you.3.Make use of household items: Use cat litter or old coffee grounds to dispose medications if other options arenot available. Mix your drugs with these household products, seal them in an airtight container andthrow it into the garbage. Call [facility]: [phone] to be sure your drugs can be disposed of in this way. Some medicines may require a different approach.4.Never flush your medications down the toilet. IF YOU HAVE BEEN PRESCRIBED AN OPIOIDS FOR PAIN If you have been prescribed an opioid (such as hydrocodone, oxycodone or morphine), it is critical to understand the possible side effects and risks of opioid pain medications. Even when taken as directed, opioids can have several side effects including: Tolerance, meaning you might need to take more of a medication for the same pain relief. Nausea, vomiting and/or constipation. Sleepiness, dizziness, dry mouth, confusion, depression or itching. Physical dependence, meaning you have withdrawal symptoms when a medication is stopped ? this can develop within a few days. KNOW YOUR RESPONSIBILITIES It is important to know exactly how much and how often to take the opioid pain medications you are prescribed. Never take opioids in higher amounts or more often than prescribed. Do not combine opioids with alcohol or other drugs that cause drowsiness, such as benzodiazepines, also known as benzos,including diazepam and alprazolam, muscle relaxants or sleep aids. Never sell or share prescriptionopioids. This is illegal. Store opioids in a secure place and out of reach of others (including children, family, friends and visitors). The last page(s) of this document has been signed and retained as a CHART COPY Signatures Patient Education Materials Conversion Disorder (Conversion Reaction) Hyperglycemia (High Blood Sugar) High Cholesterol Abdominal Pain, Unknown Cause, (Female) Medication Leaflets My discharge plan and instructions have been reviewed and explained to me and I,MATY, DOROTHEA M understand my current condition and have read and understand these discharge instructions. I have received a written copy of the plan/instructions. If I have questions, I am aware that I should contact my doctor. 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 This exam was performed according to our departmental dose optimization program, and includes the following measures where applicable: automated exposure control, adjustment of the mAs and/or kVp according to patient size and/or exam, and an iterative reconstruction algorithm. COMPARISON: CT head 04/28/2021, MRI brain 01/19/2018 HISTORY: ORDERING SYSTEM PROVIDED HISTORY: Reason for Exam: Altered mental status FINDINGS: Parenchyma: No acute intracranial hemorrhage, midline shift, mass effect or acute ischemic infarct is demonstrated. The vaca-white matter junctions are preserved. Mild parenchymal volume loss of the frontal convexities is noted. No space occupying intra-axial masses or extra-axial fluid collections are seen. Redemonstrated is encephalomalacia of the right upper convexity which on MRI of reference is localized to the postcentral gyrus. Ventricles: No evidence of hydrocephalus or ventricular effacement. Vessels: No significant atherosclerotic calcifications. Orbits: Unremarkable. Calvarium: Unremarkable. Paranasal sinuses: Clear. Mastoid sinuses: Clear. IMPRESSION: 1. No acute intracranial pathology. 2. Right cerebral convexity encephalomalacia. Interpreted by: Jorge A Carlisle MD Preliminary Report By: Jorge A Carlisle MD Electronically signed By Jorge A Carlisle MD Dictated Date: 01/25/2023 2:01:52 PM Prelim Date: 01/25/2023 2:09:03 PM Sign Date: 01/25/2023 2:09:03 PM Ordering Provider: [facility]05-09-2023 Note ORIGINAL EXAMINATION: CT OF THE ABDOMEN AND PELVIS WITH CONTRAST01/25/2023 1:52 pm TECHNIQUE: CT of the abdomen and pelvis was performed with the administration of intravenous contrast. Multiplanar reformatted images are provided for review. Automated exposure control, iterative reconstruction, and/or weight based adjustment of the mA/kV was utilized to reduce the radiation dose to as low as reasonably achievable. COMPARISON: 01/18/2023 HISTORY: ORDERING SYSTEM PROVIDED HISTORY: Reason for Exam: pain FINDINGS: The included lung bases are clear. There is no visible pleural or pericardial effusion. The heart is normal in size. The liver, spleen, adrenal glands, and pancreas are within normal limits. The gallbladder is surgically absent. The kidneys enhance symmetrically. The large and small bowel demonstrate no obstruction. No free intraperitoneal fluid or gas is identified. The aorta is normal in caliber. Surgical clips noted in the retroperitoneum. No lymphadenopathy seen. no filling defects seen in the urinary bladder. There is no acute fracture or aggressive osseous lesion. IMPRESSION: Previously described findings of pancreatitis appear improved Other incidental findings, as above Interpreted by: Thang Castellon MD Preliminary Report By: Thang Castellon MD Electronically signed By Thang Castellon MD Dictated Date: 01/25/2023 2:02:42 PM Prelim Date: 01/25/2023 2:06:59 PM Sign Date: 01/25/2023 2:06:59 PM Ordering Provider: [facility]05-09-2023 Note ORIGINAL EXAMINATION: CTA OF THE HEAD WITH CONTRAST 01/25/2023 1:52 pm: TECHNIQUE: CTA of the head/brain was performed with the administration of intravenous contrast. Multiplanar reformatted images are provided for review. MIP images are provided for review. Automated exposure control, iterative reconstruction, and/or weight based adjustment of the mA/kV was utilized to reduce the radiation dose to as low as reasonably achievable. COMPARISON: 04/28/2021, earlier HISTORY: ORDERING SYSTEM PROVIDED HISTORY: Reason for Exam: dec loc FINDINGS: ANTERIOR CIRCULATION: Mild right A1 stenosis. No significant stenosis of the intracranial internal carotid, left anterior cerebral, or middle cerebral arteries. No aneurysm. There is an ACOM. POSTERIOR CIRCULATION: No significant stenosis of the vertebral, basilar, or posterior cerebral arteries. No aneurysm. The origins of the PICA-AICA complex and SCAs appear normal. A more robust left PCOM is associated with a hypoplastic left P1 segment. The right PCOM is small. OTHER: No dural venous sinus thrombosis on this non-dedicated study. Dominant right transverse and sigmoid sinuses, right jugular bulb. BRAIN: Remote encephalomalacia right superior parietal lobule. Vaca-white matter otherwise appears maintained. No abnormal intracranial enhancement. IMPRESSION: No intracranial large vessel occlusion. Interpreted by: Shane Bowen Preliminary Report By: Shane Bowen Electronically signed By Shane Bowen Dictated Date: 01/25/2023 1:59:39 PM Prelim Date: 01/25/2023 2:05:57 PM Sign Date: 01/25/2023 2:05:57 PM Ordering Provider: LETHA CID [facility]05-09-2023 Note ORIGINAL EXAMINATION: CTA OF THE HEAD WITH CONTRAST 01/25/2023 1:52 pm: TECHNIQUE: CTA of the head/brain was performed with the administration of intravenous contrast. Multiplanar reformatted images are provided for review. MIP images are provided for review. Automated exposure control, iterative reconstruction, and/or weight based adjustment of the mA/kV was utilized to reduce the radiation dose to as low as reasonably achievable. COMPARISON: 04/28/2021, earlier HISTORY: ORDERING SYSTEM PROVIDED HISTORY: Reason for Exam: dec loc FINDINGS: ANTERIOR CIRCULATION: Mild right A1 stenosis. No significant stenosis of the intracranial internal carotid, left anterior cerebral, or middle cerebral arteries. No aneurysm. There is an ACOM. POSTERIOR CIRCULATION: No significant stenosis of the vertebral, basilar, or posterior cerebral arteries. No aneurysm. The origins of the PICA-AICA complex and SCAs appear normal. A more robust left PCOM is associated with a hypoplastic left P1 segment. The right PCOM is small. OTHER: No dural venous sinus thrombosis on this non-dedicated study. Dominant right transverse and sigmoid sinuses, right jugular bulb. BRAIN: Remote encephalomalacia right superior parietal lobule. Vaca-white matter otherwise appears maintained. No abnormal intracranial enhancement. IMPRESSION: No intracranial large vessel occlusion. Interpreted by: Shane Bowen Preliminary Report By: Shane Bowen Electronically signed By Shane Bowen Dictated Date: 01/25/2023 1:59:39 PM Prelim Date: 01/25/2023 2:05:57 PM Sign Date: 01/25/2023 2:05:57 PM Ordering Provider: [facility]05-09-2023 Note ORIGINAL EXAMINATION: CT HEAD TECHNIQUE: Axial CT images from skull base to vertex without IV contrast. This exam was performed according to our departmental dose optimization program, and includes the following measures where applicable: automated exposure control, adjustment of the mAs and/or kVp according to patient size and/or exam, and an iterative reconstruction algorithm. COMPARISON: CT head 04/28/2021, MRI brain 01/19/2018 HISTORY: ORDERING SYSTEM PROVIDED HISTORY: Reason for Exam: Altered mental status FINDINGS: Parenchyma: No acute intracranial hemorrhage, midline shift, mass effect or acute ischemic infarct is demonstrated. The vaca-white matter junctions are preserved. Mild parenchymal volume loss of the frontal convexities is noted. No space occupying intra-axial masses or extra-axial fluid collections are seen. Redemonstrated is encephalomalacia of the right upper convexity which on MRI of reference is localized to the postcentral gyrus. Ventricles: No evidence of hydrocephalus or ventricular effacement. Vessels: No significant atherosclerotic calcifications. Orbits: Unremarkable. Calvarium: Unremarkable. Paranasal sinuses: Clear. Mastoid sinuses: Clear. IMPRESSION: 1. No acute intracranial pathology. 2. Right cerebral convexity encephalomalacia. Interpreted by: Jorge A Carlisle MD Preliminary Report By: Jorge A Carlisle MD Electronically signed By Jorge A Carlisle MD Dictated Date: 01/25/2023 2:01:52 PM Prelim Date: 01/25/2023 2:09:03 PM Sign Date: 01/25/2023 2:09:03 PM Ordering Provider: [facility]05-09-2023 Note ORIGINAL EXAMINATION: CT OF THE ABDOMEN AND PELVIS WITH CONTRAST01/25/2023 1:52 pm TECHNIQUE: CT of the abdomen and pelvis was performed with the administration of intravenous contrast. Multiplanar reformatted images are provided for review. Automated exposure control, iterative reconstruction, and/or weight based adjustment of the mA/kV was utilized to reduce the radiation dose to as low as reasonably achievable. COMPARISON: 01/18/2023 HISTORY: ORDERING SYSTEM PROVIDED HISTORY: Reason for Exam: pain FINDINGS: The included lung bases are clear. There is no visible pleural or pericardial effusion. The heart is normal in size. The liver, spleen, adrenal glands, and pancreas are within normal limits. The gallbladder is surgically absent. The kidneys enhance symmetrically. The large and small bowel demonstrate no obstruction. No free intraperitoneal fluid or gas is identified. The aorta is normal in caliber. Surgical clips noted in the retroperitoneum. No lymphadenopathy seen. no filling defects seen in the urinary bladder. There is no acute fracture or aggressive osseous lesion. IMPRESSION: Previously described findings of pancreatitis appear improved Other incidental findings, as above Interpreted by: Thang Castellon MD Preliminary Report By: Thang Castellon MD Electronically signed By Thang Castellon MD Dictated Date: 01/25/2023 2:02:42 PM Prelim Date: 01/25/2023 2:06:59 PM Sign Date: 01/25/2023 2:06:59 PM Ordering Provider: [facility]03-21-2023 Evaluation + Plan note Future Scheduled Tests Laboratory* Basic Metabolic Panel 12/07/22 * Lipase Level 04/18/23 * Magnesium Level 12/07/22 * Complete Blood Count 12/07/22 * Lipid Profile 06/09/22 * Vitamin D Level 06/09/22 * Complete Metabolic Panel 04/18/23 * Complete Metabolic Panel 06/09/22 * N-Terminal proBNP 12/07/22 [facility] 03-21-2023 Miscellaneous Notes* Telephone Encounter - Alaina Tomlin APRN.CNP - 12/07/2022 3:42 AM EDT The following approved medication requests have been transmitted electronically. Requested Prescriptions Signed Prescriptions Disp Refills clonazePAM (KLONOPIN) 0.5 mg tablet 10 tablet 0 Sig: Take one tablet as needed for prolonged convulsive seizure or cluster or 3 or more seizures in24 hours. Do not exceed more than 1 tablet per day. 10 tablets per 30 days. Authorizing Provider: ALAINA TOMLIN APRN.CNP [facility] Note ORIGINAL EXAMINATION: ONE XRAY VIEW OF THE CHEST 12/06/2022 10:24 pm COMPARISON: Chest radiograph on 11/12/2022 HISTORY: ORDERING SYSTEM PROVIDED HISTORY: Reason for Exam: chest pain FINDINGS: Cardiomediastinal silhouette is stable. No lung consolidation, pleural effusion, pneumothorax, or vascular congestion. No acute osseous abnormality. IMPRESSION: No acute radiographic findings. I have personally reviewed the images of this examination and agree with the resident's findings and interpretation. Interpreted by: Manish Dee MD Preliminary Report By: Camilo Chang Electronically signed By Manish Dee MD Dictated Date: 12/06/2022 10:30:15 PM Prelim Date: 12/06/2022 10:30:49 PM Sign Date: 12/06/2022 11:04:51 PM Ordering Provider: OPAL [facility]03-20-2023 Hospital Discharge instructions Patient Education 12/06/2022 20:55:00 Chest Pain, Uncertain Cause Uncertain Causes of Chest Pain Chest pain can happen for a number of reasons. Sometimes the cause can't be determined. If your condition does not seem serious, and your pain does not appear to be coming from your heart, your healthcare provider may recommend watching it closely. Sometimes the signs of a serious problem take moretime to appear. Many problems not related to your heart can cause chest pain. These include: Musculoskeletal. Costochondritis is an inflammation of the tissues around the ribs that can occur from trauma or overuse injuries, or a strain of the muscles of the chest wall Respiratory. Pneumonia, collapsed lung (pneumothorax), or inflammation of the lining of the chest and lungs (pleurisy) Gastrointestinal. Esophageal reflux, heartburn, ulcers, or gallbladder disease Anxiety and panic disorders Nerve compression and inflammation Rare miscellaneous problems such as aortic aneurysm (a swelling of the large artery coming out of the heart) or pulmonary embolism (a blood clot in the lungs) Home care After your visit, follow these recommendations: Rest today and avoid strenuous activity. Take any prescribed medicine as directed. Be aware of any recurrent chest pain and notice any changes Follow-up care Follow up with your healthcare provider if you do not start to feel better within 24 hours, or as advised. Call 911 Call 911 if any of these occur: A change in the type of pain: if it feels different, becomes more severe, lasts longer, or begins to spread into your shoulder, arm, neck, jaw or back Shortness of breath or increased pain with breathing Weakness, dizziness, or fainting Rapid heart beat Crushing sensation in your chest When to seek medical advice Call your healthcare provider right away if any of the following occur: Cough with dark colored sputum (phlegm) or blood Fever of 100.4 F (38 C) or higher, or as directed by your healthcare provider Swelling, pain or redness in one leg [id number] [employer]. [address] [place] [address]. All rights reserved. This information is not intended as a substitute for professional medical care. Always follow yourhealthcare professional's instructions. Follow Up Care 12/06/2022 20:43:19 With:CHINEDU ABARCA MD Address: [address] [address] [phone] When:2-4 days With:Go to emergency room if symptoms worsen Address:Unknown When:2-4 days With:CJ RIVERA Address: [address] [facility] [address] [facility] [place] [address] [phone] When:2-4 days [facility] 03-20-2023 Note Discharge Instructions Thank you for allowing [place] to assist you with your healthcare needs. The following is importantdischarge information regarding your hospital visit. Diagnosis from Today's Visit Chest pain Increased heart rate What to Do Next Instructions from Your Care Team Follow-up with your primary care provider. 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 Return to the emergency department if you experience worsening symptoms or any other care concern. No qualifying data available. Post Acute Orders No qualifying data available. 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 What How Much When Why Instructions Last Dose Unchanged acetaminophen (acetaminophen 500 mg oral tablet) 1 tab(s) by mouth Once a day as needed for as needed for pain Unchanged APAP/ butalbital/ caffeine (APAP/ butalbital/ caffeine 325-50-40 mg oral tablet (Fioricet)) 1 tab(s) by mouth Every 4 hours as needed for as needed Unchanged APAP/ butalbital/ caffeine (APAP/ butalbital/ caffeine 325-50-40 mg oral tablet (Fioricet)) 1 tab(s) by mouth Every 4 hours as needed for as needed Unchanged ascorbic acid (Vitamin C 1000 mg oral tablet) 1 tab(s) by mouth Once a day Unchanged clonazePAM (clonazePAM 0.5 mg oral tablet) 1 tab(s) by mouth Once a day as needed for Seizures Unchanged dicyclomine (dicyclomine 10 mg oral capsule) 1 cap by mouth Four (4) times a day Duration: 10 Days Unchanged lacosamide (lacosamide 100 mg oral tablet) 1 tab(s) by mouth Once a day (in the morning) Unchanged lacosamide (lacosamide 100 mg oral tablet) 2 tab(s) by mouth Once a day (in the evening) Unchanged lactulose (lactulose 10 g/ 15 mL oral syrup) 15 Milliliter by mouth Two (2) times a day Duration: 30 Days Unchanged magnesium oxide (magnesium oxide 400 mg oral tablet) 1 tab(s) by mouth Once a day Unchanged methenamine (methenamine hippurate 1 g oral tablet) 1 tab(s) by mouth Once a day Duration: 90 Days Unchanged omeprazole (omeprazole 40 mg oral delayed release capsule) 1 cap by mouth Two (2) times a day Duration: 30 Days Unchanged potassium chloride (potassium chloride 20 mEq oral tablet, extended release) 1 tab(s) by mouth Three (3) times a day in lieu of provider absence Unchanged promethazine (promethazine 25 mg oral tablet) 1 tab(s) by mouth Every 6 hours as needed for as needed for nausea/vomiting Abdominal pain Rectal bleeding Duration: 5 Days Unchanged rOPINIRole (rOPINIRole 0.5 mg oral tablet) 1 tab(s) by mouth Two (2) times a day Duration: 30 Days Unchanged venlafaxine (venlafaxine 150 mg oral capsule, extended release) 1 cap by mouth Once a day Unchanged venlafaxine (venlafaxine 150 mg oral capsule, extended release) 1 cap by mouth Once a day Unchanged venlafaxine (venlafaxine 75 mg oral capsule, extended release) 1 cap by mouth Once a day In addition to 150 mg capsule for a total of 225 mg/ day Please take this list to your next doctor s visit. Bring all medications you take, including over the counter medications, herbals and other supplements with you to your doctor s visit. Patients and families are reminded to discard old lists and to update any records with all medication providers or retail pharmacies. Education Materials Uncertain Causes of Chest Pain Chest pain can happen for a number of reasons. Sometimes the cause can't be determined. If your condition does not seem serious, and your pain does not appear to be coming from your heart, your healthcare provider may recommend watching it closely. Sometimes the signs of a serious problem take moretime to appear. Many problems not related to your heart can cause chest pain. These include: Musculoskeletal. Costochondritis is an inflammation of the tissues around the ribs that can occur from trauma or overuse injuries, or a strain of the muscles of the chest wall Respiratory. Pneumonia, collapsed lung (pneumothorax), or inflammation of the lining of the chest and lungs (pleurisy) Gastrointestinal. Esophageal reflux, heartburn, ulcers, or gallbladder disease Anxiety and panic disorders Nerve compression and inflammation Rare miscellaneous problems such as aortic aneurysm (a swelling of the large artery coming out of the heart) or pulmonary embolism (a blood clot in the lungs) Home care After your visit, follow these recommendations: Rest today and avoid strenuous activity. Take any prescribed medicine as directed. Be aware of any recurrent chest pain and notice any changes Follow-up care Follow up with your healthcare provider if you do not start to feel better within 24 hours, or as advised. Call 911 Call 911 if any of these occur: A change in the type of pain: if it feels different, becomes more severe, lasts longer, or begins to spread into your shoulder, arm, neck, jaw or back Shortness of breath or increased pain with breathing Weakness, dizziness, or fainting Rapid heart beat Crushing sensation in your chest When to seek medical advice Call your healthcare provider right away if any of the following occur: Cough with dark colored sputum (phlegm) or blood Fever of 100.4 F (38 C) or higher, or as directed by your healthcare provider Swelling, pain or redness in one leg [phone] [employer]. [address] [place] [address]. All rights reserved. This information is not intended as a substitute for professional medical care. Always follow yourhealthcare professional's instructions. Additional Information VACCINATE! IT SAVES LIVES! Members of the community who have not yet received the COVID-19 vaccine and would like to receive it can visit one of [facility] vaccine clinics. There are many vaccine clinic locations within the [facility]. For locations and available times, please visit www.[email or web address].[place].gov/. It is important to note that some COVID mobile vaccine clinics are held outdoors and may be canceled in rainy or stormy conditions. To learn more about pediatric vaccinations (ages 5-11), we invite you to visit the [facility] webpage. https://www.[facility].org/pages/1772-Vqikp-Fdozaljwwxf-Mwyvleehba-Esuzm-Pqz stions.htmlTo learn more about the COVID-19 vaccine, we invite you to visit the CDC website for a list of frequently asked questions. https://www.cdc.gov/coronavirus/2019-ncov/vaccines/faq.html [facility] Patient Portal Access Instructions: Stay connected with your healthcare team and access your personal medical information anytime with the [facility] Patient Portal. If you would like a full copy of your medical records please contact the [facility] Medical Records Department Tuesday through Tuesday between 8a.m. and 4:30p.m. Please follow the directions below to access the portal: 1.Access the email account you provided upon registration to the [facility].2.Look for an invitation email from [facility].3.Open the email and access the invitation link: Accept Invitation to [facility]4.Fill in the required azul to create your account. Sign into [email or web address] with your username and password that you created in the above steps to stay up to date. You can then view a summary of results, a summary of your visits, and the ability to download your summaries to your computer or send the information securely to a physician. Remember that your healthcare information is confidential, so carefully consider who you will allow to register on the [facility] Patient Portal for access to your information. You can also access the [facility] Patient Portal on the [employer]. Simply click on Health Records under [employer] and then click on the [employer] logo. HOW TO SAFELY DISPOSE OF PRESCRIPTION MEDICATIONS Please use one of the following methods to safely dispose of your unused medications. 1.Use a drug disposal kit: the drug disposal pouch allows you to safely discard your old and unuseddrugs. Ask your nurse to give you one when you are discharged.2.Visit a local take-back location: Many local pharmacies and police departments have programs that collect old and unwanted prescriptiondrugs. Call your local pharmacy or go to http://[employer].CMGE/8R4Xm9k to find one close to you.3.Make use of household items: Use cat litter or old coffee grounds to dispose medications if other options arenot available. Mix your drugs with these household products, seal them in an airtight container andthrow it into the garbage. Call [facility]: [phone] to be sure your drugs can be disposed of in this way. Some medicines may require a different approach.4.Never flush your medications down the toilet. IF YOU HAVE BEEN PRESCRIBED AN OPIOIDS FOR PAIN If you have been prescribed an opioid (such as hydrocodone, oxycodone or morphine), it is critical to understand the possible side effects and risks of opioid pain medications. Even when taken as directed, opioids can have several side effects including: Tolerance, meaning you might need to take more of a medication for the same pain relief. Nausea, vomiting and/or constipation. Sleepiness, dizziness, dry mouth, confusion, depression or itching. Physical dependence, meaning you have withdrawal symptoms when a medication is stopped ? this can develop within a few days. KNOW YOUR RESPONSIBILITIES It is important to know exactly how much and how often to take the opioid pain medications you are prescribed. Never take opioids in higher amounts or more often than prescribed. Do not combine opioids with alcohol or other drugs that cause drowsiness, such as benzodiazepines, also known as benzos,including diazepam and alprazolam, muscle relaxants or sleep aids. Never sell or share prescriptionopioids. This is illegal. Store opioids in a secure place and out of reach of others (including children, family, friends and visitors). The last page(s) of this document has been signed and retained as a CHART COPY Signatures Patient Education Materials Chest Pain, Uncertain Cause Medication Leaflets My discharge plan and instructions have been reviewed and explained to me and IMATY AMANDA M understand my current condition and have read and understand these discharge instructions. I have received a written copy of the plan/instructions. If I have questions, I am aware that I should contact my doctor. 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 No lung consolidation, pleural effusion, pneumothorax, or vascular congestion. No acute osseous abnormality. IMPRESSION: No acute radiographic findings. I have personally reviewed the images of this examination and agree with the resident's findings and interpretation. Interpreted by: Manish Dee MD Preliminary Report By: Camilo Chang Electronically signed By Manish Dee MD Dictated Date: 12/06/2022 10:30:15 PM Prelim Date: 12/06/2022 10:30:49 PM Sign Date: 12/06/2022 11:04:51 PM Ordering Provider: OPAL [facility]02-25-2023 Hospital Discharge instructions Patient Education 11/13/2022 18:42:58 Lower GI Bleeding (Stable) Lower Gastrointestinal (GI) Bleeding (Stable) You have signs of blood in your stool. This is called rectal bleeding. The bleeding may have begun in another part of your gastrointestinal (GI) tract. If the blood is bright red, it is likely comingfrom the lower part of the GI tract. If the blood is black or dark, it might be coming from higher up in the GI tract. Very small amounts of GI bleeding may not be visible and can only be discovered during a test on your stool. Possible causes of lower GI bleeding include: Swollen inflamed veins in the rectum (hemorrhoids) Tear in the lining of the anus (anal fissures) Inflammation of a small pouch in the intestine (diverticulitis) Inflammatory bowel disease (Crohn's disease or ulcerative colitis) Polyps (growths) in the intestine Swelling and irritation of the colon (infectious colitis) Colon cancer Note: Iron supplements and medicines for diarrhea or upset stomach can cause black stools. Foods such as licorice and red beets can also discolor the stool and be mistaken for bleeding. These are notbleeding and are not a cause for alarm. Home care You have not lost a large amount of blood and your condition appears stable at this time. You may resume normal activity as long as you feel well. Don't take NSAIDs, such as aspirin, ibuprofen, or naproxen. They can irritate the stomach and causefurther bleeding. If you are taking these medicines for other medical reasons, talk to your healthcare provider before you stop them. Follow-up care Follow up with your healthcare provider, or as advised. Further tests may be needed to find the cause of your bleeding. When to seek medical advice Call your healthcare provider right away for any of the following: Large amount of rectal bleeding Increasing abdominal pain Weakness, dizziness Call 911 Call 911 if any of the following occur: Loss of consciousness Vomiting blood [phone] [employer]. [address] [place] [address], [place] [address]. All rights reserved. This information is not intended as a substitute for professional medical care. Always follow yourhealthcare professional's instructions. 11/13/2022 18:42:57 Abdominal Pain Abdominal Pain Abdominal pain is pain in the stomach or belly area. Everyone has this pain from time to time. In many cases it goes away on its own. But abdominal pain can sometimes be due to a serious problem, such as appendicitis. So it s important to know when to get help. Causes of abdominal pain There are many possible causes of abdominal pain. Common causes in adults include: Constipation, diarrhea, or gas Stomach acid flowing back up into the esophagus (acid reflux or heartburn) Severe acid reflux, called GERD (gastroesophageal reflux disease) A sore in the lining of the stomach or small intestine (peptic ulcer) Inflammation of the gallbladder, liver, or pancreas Gallstones or kidney stones Appendicitis Intestinal blockage An internal organ pushing through a muscle or other tissue (hernia) Urinary tract infections In women, menstrual cramps, fibroids, ovarian cysts, pelvic inflammatory disease, or endometriosis Inflammation or infection of the intestines, including Crohn's disease and ulcerative colitis Irritable bowel syndrome Diagnosing the cause of abdominal pain Your healthcare provider will give you a physical exam help find the cause of your pain. If needed,you will have tests. Belly pain has many possible causes. So it can be hard to find the reason for your pain. Giving details about your pain can help. Tell your provider where and when you feel the pain, and what makes it better or worse. Also let your provider know if you have other symptoms such as: Fever Tiredness Upset stomach (nausea) Vomiting Changes in bathroom habits Blood in the stool or black, tarry stool Weight loss that you can't explain (involuntary weight loss?) Also report any family history of stomach or intestinal problems, or cancers. Tell your provider about all your alcohol use and drug use. Tell your provider about all medicines you use, including herbs, vitamins, and supplements. Treating abdominal pain Some causes of pain need emergency medical treatment right away. These include appendicitis or a bowel blockage. Other problems can be treated with rest, fluids, or medicines. Your healthcare provider can give you specific instructions for treatment or self-care based on what is causing your pain. If you have vomiting or diarrhea, sip water or other clear fluids. When you are ready to eat solid foods again, start with small amounts of [address], low- fat foods. These include apple sauce, toast, or crackers. When to get medical care Call 911 or go to the hospital right away if you: Can t pass stool and are vomiting Are vomiting blood or have bloody diarrhea or black, tarry diarrhea Have chest, neck, or shoulder pain Feel like you might pass out Have pain in your shoulder blades with nausea Have sudden, severe belly pain Have new, severe pain unlike any you have felt before Have a belly that is rigid, hard, and hurts to touch Call your healthcare provider if you have: Pain for more than 5 days Bloating for more than 2 days Diarrhea for more than 5 days A fever of 100.4 F (38 C) or higher, or as directed by your healthcare provider Pain that gets worse Weight loss for no reason Continued lack of appetite Blood in your stool How to prevent abdominal pain Here are some tips to help prevent abdominal pain: Eat smaller amounts of food at each meal. Don't eat greasy, fried, or other high-fat foods. Don't eat foods that give you gas. Exercise regularly. Drink plenty of fluids. To help prevent GERD symptoms: Quit smoking. Reduce alcohol and foods that increase stomach acid. Don't use aspirin or ryfu-ptz-gdbxxcr pain and fever medicines, if possible. This includes nonsteroidal anti-inflammatory drugs (NSAIDs). Lose excess weight. Finish eating at least 2 hours before you go to bed or lie down. Raise the head of your bed. 8028-5662 [employer]. [address] [place] [address]. All rights reserved. This information is not intended as a substitute for professional medical care. Always follow yourhealthcare professional's instructions. 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 The following is importantdischarge information regarding your hospital visit. Diagnosis from Today's Visit Abdominal pain Rectal bleeding Blood in stool What to Do Next Instructions from Your Care Team No qualifying data available. Post Acute Orders No qualifying data available. You Need to Schedule the Following Appointments Follow Up with Your GI doctor as soon as possible When Within 2-4 days Follow Up with CJ RIVERA When Within 2-4 days Where: [address] [facility] [place] [address]- [phone] Allergies penicillin (Rash) Neurontin (Vomiting) morphine (Cramping) sulfa drug Medications Please ask your primary doctor or pharmacist before taking any other medication not listed, including over the counter drugs, herbal medications, vitamins and or supplements as they may interact withyour home medications. What How Much When Instructions Last Dose Unchanged acetaminophen (acetaminophen 500 mg oral tablet) 1 tab(s) by mouth Once a day as needed for as needed for pain Unchanged APAP/ butalbital/ caffeine (APAP/ butalbital/ caffeine 325-50-40 mg oral tablet (Fioricet)) 1 tab(s) by mouth Every 4 hours as needed for as needed Unchanged APAP/ butalbital/ caffeine (APAP/ butalbital/ caffeine 325-50-40 mg oral tablet (Fioricet)) 1 tab(s) by mouth Every 4 hours as needed for as needed Unchanged ascorbic acid (Vitamin C 1000 mg oral tablet) 1 tab(s) by mouth Once a day Unchanged cholecalciferol (cholecalciferol 1250 mcg (50,000 intl units) oral capsule) 1 cap by mouth Every Tuesday Unchanged clonazePAM (clonazePAM 0.5 mg oral tablet) 1 tab(s) by mouth Once a day as needed for Seizures Unchanged cloNIDine (cloNIDine 0.2 mg oral tablet) 1 tab(s) by mouth Two (2) times a day Unchanged dicyclomine (dicyclomine 10 mg oral capsule) 1 cap by mouth Four (4) times a day Duration: 10 Days Unchanged furosemide (furosemide 40 mg oral tablet) 1 tab(s) by mouth Once a day Unchanged lacosamide (lacosamide 100 mg oral tablet) 1 tab(s) by mouth Once a day (in the morning) Unchanged lacosamide (lacosamide 100 mg oral tablet) 2 tab(s) by mouth Once a day (in the evening) Unchanged lactulose (lactulose 10 g/ 15 mL oral syrup) 15 Milliliter by mouth Two (2) times a day Duration: 30 Days Unchanged lidocaine topical (lidocaine 5% topical patch) 1 patch(es) Topical Every day Duration: 10 Days Unchanged linaclotide (Linzess 290 mcg oral capsule) 1 cap by mouth Once a day Unchanged magnesium oxide (magnesium oxide 400 mg oral tablet) 1 tab(s) by mouth Once a day Unchanged methenamine (methenamine hippurate 1 g oral tablet) 1 tab(s) by mouth Once a day Duration: 90 Days Unchanged metoprolol (metoprolol tartrate 25 mg oral tablet) 1 tab(s) by mouth Two (2) times a day Unchanged omeprazole (omeprazole 40 mg oral delayed release capsule) 1 cap by mouth Two (2) times a day Duration: 30 Days Unchanged potassium chloride (potassium chloride 20 mEq oral tablet, extended release) 1 tab(s) by mouth Three (3) times a day Unchanged rivaroxaban (Xarelto 10 mg oral tablet) 1 tab(s) by mouth Once a day Unchanged rOPINIRole (rOPINIRole 0.5 mg oral tablet) 1 tab(s) by mouth Two (2) times a day Duration: 30 Days Unchanged valACYclovir (valACYclovir 500 mg oral tablet) 1 tab(s) by mouth Once a day Unchanged venlafaxine (venlafaxine 150 mg oral capsule, extended release) 1 cap by mouth Once a day Unchanged venlafaxine (venlafaxine 225 mg oral tablet, extended release) 1 tab(s) by mouth Once a day Please take this list to your next doctor s visit. Bring all medications you take, including over the counter medications, herbals and other supplements with you to your doctor s visit. Patients and families are reminded to discard old lists and to update any records with all medication providers or retail pharmacies. Education Materials Lower Gastrointestinal (GI) Bleeding (Stable) You have signs of blood in your stool. This is called rectal bleeding. The bleeding may have begun in another part of your gastrointestinal (GI) tract. If the blood is bright red, it is likely comingfrom the lower part of the GI tract. If the blood is black or dark, it might be coming from higher up in the GI tract. Very small amounts of GI bleeding may not be visible and can only be discovered during a test on your stool. Possible causes of lower GI bleeding include: Swollen inflamed veins in the rectum (hemorrhoids) Tear in the lining of the anus (anal fissures) Inflammation of a small pouch in the intestine (diverticulitis) Inflammatory bowel disease (Crohn's disease or ulcerative colitis) Polyps (growths) in the intestine Swelling and irritation of the colon (infectious colitis) Colon cancer Note: Iron supplements and medicines for diarrhea or upset stomach can cause black stools. Foods such as licorice and red beets can also discolor the stool and be mistaken for bleeding. These are notbleeding and are not a cause for alarm. Home care You have not lost a large amount of blood and your condition appears stable at this time. You may resume normal activity as long as you feel well. Don't take NSAIDs, such as aspirin, ibuprofen, or naproxen. They can irritate the stomach and causefurther bleeding. If you are taking these medicines for other medical reasons, talk to your healthcare provider before you stop them. Follow-up care Follow up with your healthcare provider, or as advised. Further tests may be needed to find the cause of your bleeding. When to seek medical advice Call your healthcare provider right away for any of the following: Large amount of rectal bleeding Increasing abdominal pain Weakness, dizziness Call 911 Call 911 if any of the following occur: Loss of consciousness Vomiting blood [id number] [employer]. [address] [place], [place] [id number]. All rights reserved. This information is not intended as a substitute for professional medical care. Always follow yourhealthcare professional's instructions. Abdominal Pain Abdominal pain is pain in the stomach or belly area. Everyone has this pain from time to time. In many cases it goes away on its own. But abdominal pain can sometimes be due to a serious problem, such as appendicitis. So it s important to know when to get help. Causes of abdominal pain There are many possible causes of abdominal pain. Common causes in adults include: Constipation, diarrhea, or gas Stomach acid flowing back up into the esophagus (acid reflux or heartburn) Severe acid reflux, called GERD (gastroesophageal reflux disease) A sore in the lining of the stomach or small intestine (peptic ulcer) Inflammation of the gallbladder, liver, or pancreas Gallstones or kidney stones Appendicitis Intestinal blockage An internal organ pushing through a muscle or other tissue (hernia) Urinary tract infections In women, menstrual cramps, fibroids, ovarian cysts, pelvic inflammatory disease, or endometriosis Inflammation or infection of the intestines, including Crohn's disease and ulcerative colitis Irritable bowel syndrome Diagnosing the cause of abdominal pain Your healthcare provider will give you a physical exam help find the cause of your pain. If needed,you will have tests. Belly pain has many possible causes. So it can be hard to find the reason for your pain. Giving details about your pain can help. Tell your provider where and when you feel the pain, and what makes it better or worse. Also let your provider know if you have other symptoms such as: Fever Tiredness Upset stomach (nausea) Vomiting Changes in bathroom habits Blood in the stool or black, tarry stool Weight loss that you can't explain (involuntary weight loss?) Also report any family history of stomach or intestinal problems, or cancers. Tell your provider about all your alcohol use and drug use. Tell your provider about all medicines you use, including herbs, vitamins, and supplements. Treating abdominal pain Some causes of pain need emergency medical treatment right away. These include appendicitis or a bowel blockage. Other problems can be treated with rest, fluids, or medicines. Your healthcare provider can give you specific instructions for treatment or self-care based on what is causing your pain. If you have vomiting or diarrhea, sip water or other clear fluids. When you are ready to eat solid foods again, start with small amounts of yfcn-vo-bceruv, low- fat foods. These include apple sauce, toast, or crackers. When to get medical care Call 911 or go to the hospital right away if you: Can t pass stool and are vomiting Are vomiting blood or have bloody diarrhea or black, tarry diarrhea Have chest, neck, or shoulder pain Feel like you might pass out Have pain in your shoulder blades with nausea Have sudden, severe belly pain Have new, severe pain unlike any you have felt before Have a belly that is rigid, hard, and hurts to touch Call your healthcare provider if you have: Pain for more than 5 days Bloating for more than 2 days Diarrhea for more than 5 days A fever of 100.4 F (38 C) or higher, or as directed by your healthcare provider Pain that gets worse Weight loss for no reason Continued lack of appetite Blood in your stool How to prevent abdominal pain Here are some tips to help prevent abdominal pain: Eat smaller amounts of food at each meal. Don't eat greasy, fried, or other high-fat foods. Don't eat foods that give you gas. Exercise regularly. Drink plenty of fluids. To help prevent GERD symptoms: Quit smoking. Reduce alcohol and foods that increase stomach acid. Don't use aspirin or nlae-irb-wbxltlm pain and fever medicines, if possible. This includes nonsteroidal anti-inflammatory drugs (NSAIDs). Lose excess weight. Finish eating at least 2 hours before you go to bed or lie down. Raise the head of your bed. 8485-4129 [employer]. [address] [place] [address], [place] [address]. All rights reserved. This information is not intended as a substitute for professional medical care. Always follow yourhealthcare professional's instructions. Additional Information VACCINATE! IT SAVES LIVES! Members of the community who have not yet received the COVID-19 vaccine and would like to receive it can visit one of [facility] vaccine clinics. There are many vaccine clinic locations within the [facility]. For locations and available times, please visit [email or web address] It is important to note that some COVID mobile vaccine clinics are held outdoors and may be canceled in rainy or stormy conditions. To learn more about pediatric vaccinations (ages 5-11), we invite you to visit the [facility] webpage. [email or web address]/[email or web address]-[email or web address] stions.htmlTo learn more about the COVID-19 vaccine, we invite you to visit the CDC website for a list of frequently asked questions. https://www.cdc.gov/coronavirus/2019-ncov/vaccines/faq.html [facility] Patient Portal Access Instructions: Stay connected with your healthcare team and access your personal medical information anytime with the [facility] Patient Portal. If you would like a full copy of your medical records please contact the [facility] Medical Records Department Tuesday through Tuesday between 8a.m. and 4:30p.m. Please follow the directions below to access the portal: 1.Access the email account you provided upon registration to the [facility].2.Look for an invitation email from [facility].3.Open the email and access the invitation link: Accept Invitation to [facility]4.Fill in the required azul to create your account. Sign into [email or web address] with your username and password that you created in the above steps to stay up to date. You can then view a summary of results, a summary of your visits, and the ability to download your summaries to your computer or send the information securely to a physician. Remember that your healthcare information is confidential, so carefully consider who you will allow to register on the [facility] Patient Portal for access to your information. You can also access the [facility] Patient Portal on the triptap leslie. Simply click on Health Records under [employer] and then click on the [facility] logo. HOW TO SAFELY DISPOSE OF PRESCRIPTION MEDICATIONS Please use one of the following methods to safely dispose of your unused medications. 1.Use a drug disposal kit: the drug disposal pouch allows you to safely discard your old and unuseddrugs. Ask your nurse to give you one when you are discharged.2.Visit a local take-back location: Many local pharmacies and police departments have programs that collect old and unwanted prescriptiondrugs. Call your local pharmacy or go to http://[employer].CMGE/1Z9Wp6f to find one close to you.3.Make use of household items: Use cat litter or old coffee grounds to dispose medications if other options arenot available. Mix your drugs with these household products, seal them in an airtight container andthrow it into the garbage. Call [facility]: [phone] to be sure your drugs can be disposed of in this way. Some medicines may require a different approach.4.Never flush your medications down the toilet. IF YOU HAVE BEEN PRESCRIBED AN OPIOIDS FOR PAIN If you have been prescribed an opioid (such as hydrocodone, oxycodone or morphine), it is critical to understand the possible side effects and risks of opioid pain medications. Even when taken as directed, opioids can have several side effects including: Tolerance, meaning you might need to take more of a medication for the same pain relief. Nausea, vomiting and/or constipation. Sleepiness, dizziness, dry mouth, confusion, depression or itching. Physical dependence, meaning you have withdrawal symptoms when a medication is stopped ? this can develop within a few days. KNOW YOUR RESPONSIBILITIES It is important to know exactly how much and how often to take the opioid pain medications you are prescribed. Never take opioids in higher amounts or more often than prescribed. Do not combine opioids with alcohol or other drugs that cause drowsiness, such as benzodiazepines, also known as benzos,including diazepam and alprazolam, muscle relaxants or sleep aids. Never sell or share prescriptionopioids. This is illegal. Store opioids in a secure place and out of reach of others (including children, family, friends and visitors). The last page(s) of this document has been signed and retained as a CHART COPY Signatures Patient Education Materials Lower GI Bleeding (Stable) Abdominal Pain Medication Leaflets My discharge plan and instructions have been reviewed and explained to me and IMATY AMANDA M understand my current condition and have read and understand these discharge instructions. I have received a written copy of the plan/instructions. If I have questions, I am aware that I should contact my doctor. 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 Sometimes the cause can't be determined. If your condition does not seem serious, and your pain does not appear to be coming from your heart, your healthcare provider may recommend watching it closely. Sometimes the signs of a serious problem take moretime to appear. Many problems not related to your heart can cause chest pain. These include: Musculoskeletal. Costochondritis is an inflammation of the tissues around the ribs that can occur from trauma or overuse injuries, or a strain of the muscles of the chest wall Respiratory. Pneumonia, collapsed lung (pneumothorax), or inflammation of the lining of the chest and lungs (pleurisy) Gastrointestinal. Esophageal reflux, heartburn, ulcers, or gallbladder disease Anxiety and panic disorders Nerve compression and inflammation Rare miscellaneous problems such as aortic aneurysm (a swelling of the large artery coming out of the heart) or pulmonary embolism (a blood clot in the lungs) Home care After your visit, follow these recommendations: Rest today and avoid strenuous activity. Take any prescribed medicine as directed. Be aware of any recurrent chest pain and notice any changes Follow-up care Follow up with your healthcare provider if you do not start to feel better within 24 hours, or as advised. Call 911 Call 911 if any of these occur: A change in the type of pain: if it feels different, becomes more severe, lasts longer, or begins to spread into your shoulder, arm, neck, jaw or back Shortness of breath or increased pain with breathing Weakness, dizziness, or fainting Rapid heart beat Crushing sensation in your chest When to seek medical advice Call your healthcare provider right away if any of the following occur: Cough with dark colored sputum (phlegm) or blood Fever of 100.4 F (38 C) or higher, or as directed by your healthcare provider Swelling, pain or redness in one leg [id number] [employer]. [address] [place] [address]. All rights reserved. This information is not intended as a substitute for professional medical care. Always follow yourhealthcare professional's instructions. Follow Up Care 11/12/2022 21:10:18 With:CJ RIVERA Address: [address] [facility] [place] [address] [phone] Business (1) When:2-4 days [facility] 02-25-2023 Note Discharge Instructions Thank you for allowing [facility] to assist you with your healthcare needs. The following is importantdischarge information regarding your hospital visit. Diagnosis from Today's Visit Chest pain Hypertension What to Do Next Instructions from Your Care Team No qualifying data available. Post Acute Orders No qualifying data available. You Need to Schedule the Following Appointments Follow Up with CJ RIVERA When Within 2-4 days Where: [address] [facility] [place] [address] [phone] Business (1) Allergies penicillin (Rash) Neurontin (Vomiting) morphine (Cramping) sulfa drug Medications Please ask your primary doctor or pharmacist before taking any other medication not listed, including over the counter drugs, herbal medications, vitamins and or supplements as they may interact withyour home medications. What How Much When Instructions Last Dose New lidocaine topical (lidocaine 5% topical patch) 1 patch(es) Topical Every day Duration: 10 Days Printed Prescription Unchanged acetaminophen (acetaminophen 500 mg oral tablet) 1 tab(s) by mouth Once a day as needed for as needed for pain Unchanged APAP/ butalbital/ caffeine (APAP/ butalbital/ caffeine 325-50-40 mg oral tablet (Fioricet)) 1 tab(s) by mouth Every 4 hours as needed for as needed Unchanged APAP/ butalbital/ caffeine (APAP/ butalbital/ caffeine 325-50-40 mg oral tablet (Fioricet)) 1 tab(s) by mouth Every 4 hours as needed for as needed Unchanged ascorbic acid (Vitamin C 1000 mg oral tablet) 1 tab(s) by mouth Once a day Unchanged cholecalciferol (cholecalciferol 1250 mcg (50,000 intl units) oral capsule) 1 cap by mouth Every Tuesday Unchanged clonazePAM (clonazePAM 0.5 mg oral tablet) 1 tab(s) by mouth Once a day as needed for Seizures Unchanged cloNIDine (cloNIDine 0.2 mg oral tablet) 1 tab(s) by mouth Two (2) times a day Unchanged dicyclomine (dicyclomine 10 mg oral capsule) 1 cap by mouth Four (4) times a day Duration: 10 Days Unchanged furosemide (furosemide 40 mg oral tablet) 1 tab(s) by mouth Once a day Unchanged lacosamide (lacosamide 100 mg oral tablet) 1 tab(s) by mouth Once a day (in the morning) Unchanged lacosamide (lacosamide 100 mg oral tablet) 2 tab(s) by mouth Once a day (in the evening) Unchanged lactulose (lactulose 10 g/ 15 mL oral syrup) 15 Milliliter by mouth Two (2) times a day Duration: 30 Days Unchanged linaclotide (Linzess 290 mcg oral capsule) 1 cap by mouth Once a day Unchanged magnesium oxide (magnesium oxide 400 mg oral tablet) 1 tab(s) by mouth Once a day Unchanged methenamine (methenamine hippurate 1 g oral tablet) 1 tab(s) by mouth Once a day Duration: 90 Days Unchanged metoprolol (metoprolol tartrate 25 mg oral tablet) 1 tab(s) by mouth Two (2) times a day Unchanged omeprazole (omeprazole 40 mg oral delayed release capsule) 1 cap by mouth Two (2) times a day Duration: 30 Days Unchanged potassium chloride (potassium chloride 20 mEq oral tablet, extended release) 1 tab(s) by mouth Three (3) times a day Unchanged rivaroxaban (Xarelto 10 mg oral tablet) 1 tab(s) by mouth Once a day Unchanged rOPINIRole (rOPINIRole 0.5 mg oral tablet) 1 tab(s) by mouth Two (2) times a day Duration: 30 Days Unchanged valACYclovir (valACYclovir 500 mg oral tablet) 1 tab(s) by mouth Once a day Unchanged venlafaxine (venlafaxine 150 mg oral capsule, extended release) 1 cap by mouth Once a day Unchanged venlafaxine (venlafaxine 225 mg oral tablet, extended release) 1 tab(s) by mouth Once a day Please take this list to your next doctor s visit. Bring all medications you take, including over the counter medications, herbals and other supplements with you to your doctor s visit. Patients and families are reminded to discard old lists and to update any records with all medication providers or retail pharmacies. Education Materials Uncertain Causes of Chest Pain Chest pain can happen for a number of reasons. Sometimes the cause can't be determined. If your condition does not seem serious, and your pain does not appear to be coming from your heart, your healthcare provider may recommend watching it closely. Sometimes the signs of a serious problem take moretime to appear. Many problems not related to your heart can cause chest pain. These include: Musculoskeletal. Costochondritis is an inflammation of the tissues around the ribs that can occur from trauma or overuse injuries, or a strain of the muscles of the chest wall Respiratory. Pneumonia, collapsed lung (pneumothorax), or inflammation of the lining of the chest and lungs (pleurisy) Gastrointestinal. Esophageal reflux, heartburn, ulcers, or gallbladder disease Anxiety and panic disorders Nerve compression and inflammation Rare miscellaneous problems such as aortic aneurysm (a swelling of the large artery coming out of the heart) or pulmonary embolism (a blood clot in the lungs) Home care After your visit, follow these recommendations: Rest today and avoid strenuous activity. Take any prescribed medicine as directed. Be aware of any recurrent chest pain and notice any changes Follow-up care Follow up with your healthcare provider if you do not start to feel better within 24 hours, or as advised. Call 911 Call 911 if any of these occur: A change in the type of pain: if it feels different, becomes more severe, lasts longer, or begins to spread into your shoulder, arm, neck, jaw or back Shortness of breath or increased pain with breathing Weakness, dizziness, or fainting Rapid heart beat Crushing sensation in your chest When to seek medical advice Call your healthcare provider right away if any of the following occur: Cough with dark colored sputum (phlegm) or blood Fever of 100.4 F (38 C) or higher, or as directed by your healthcare provider Swelling, pain or redness in one leg [phone] [employer]. [address] [place] [address]. All rights reserved. This information is not intended as a substitute for professional medical care. Always follow yourhealthcare professional's instructions. Additional Information VACCINATE! IT SAVES LIVES! Members of the community who have not yet received the COVID-19 vaccine and would like to receive it can visit one of [facility] vaccine clinics. There are many vaccine clinic locations within the [facility]. For locations and available times, please visit www.[email or web address].[place].gov/. It is important to note that some COVID mobile vaccine clinics are held outdoors and may be canceled in rainy or stormy conditions. To learn more about pediatric vaccinations (ages 5-11), we invite you to visit the [facility] webpage. https://www.[facility].org/pages/5841-Friul-Esnixxjuyoe-Ljhcxicqau-Swlbo-Afq stions.htmlTo learn more about the COVID-19 vaccine, we invite you to visit the CDC website for a list of frequently asked questions. https://www.cdc.gov/coronavirus/2019-ncov/vaccines/faq.html [facility] Patient Portal Access Instructions: Stay connected with your healthcare team and access your personal medical information anytime with the [facility] Patient Portal. If you would like a full copy of your medical records please contact the [facility] Medical Records Department Tuesday through Tuesday between 8a.m. and 4:30p.m. Please follow the directions below to access the portal: 1.Access the email account you provided upon registration to the [facility].2.Look for an invitation email from [facility].3.Open the email and access the invitation link: Accept Invitation to [facility]4.Fill in the required azul to create your account. Sign into [email or web address] with your username and password that you created in the above steps to stay up to date. You can then view a summary of results, a summary of your visits, and the ability to download your summaries to your computer or send the information securely to a physician. Remember that your healthcare information is confidential, so carefully consider who you will allow to register on the [facility] Patient Portal for access to your information. You can also access the [facility] Patient Portal on the triptap leslie. Simply click on Health Records under [employer] and then click on the [employer] logo. HOW TO SAFELY DISPOSE OF PRESCRIPTION MEDICATIONS Please use one of the following methods to safely dispose of your unused medications. 1.Use a drug disposal kit: the drug disposal pouch allows you to safely discard your old and unuseddrugs. Ask your nurse to give you one when you are discharged.2.Visit a local take-back location: Many local pharmacies and police departments have programs that collect old and unwanted prescriptiondrugs. Call your local pharmacy or go to http://bit.CMGE/2G3Gx6j to find one close to you.3.Make use of household items: Use cat litter or old coffee grounds to dispose medications if other options arenot available. Mix your drugs with these household products, seal them in an airtight container andthrow it into the garbage. Call [facility]: [phone] to be sure your drugs can be disposed of in this way. Some medicines may require a different approach.4.Never flush your medications down the toilet. IF YOU HAVE BEEN PRESCRIBED AN OPIOIDS FOR PAIN If you have been prescribed an opioid (such as hydrocodone, oxycodone or morphine), it is critical to understand the possible side effects and risks of opioid pain medications. Even when taken as directed, opioids can have several side effects including: Tolerance, meaning you might need to take more of a medication for the same pain relief. Nausea, vomiting and/or constipation. Sleepiness, dizziness, dry mouth, confusion, depression or itching. Physical dependence, meaning you have withdrawal symptoms when a medication is stopped ? this can develop within a few days. KNOW YOUR RESPONSIBILITIES It is important to know exactly how much and how often to take the opioid pain medications you are prescribed. Never take opioids in higher amounts or more often than prescribed. Do not combine opioids with alcohol or other drugs that cause drowsiness, such as benzodiazepines, also known as benzos,including diazepam and alprazolam, muscle relaxants or sleep aids. Never sell or share prescriptionopioids. This is illegal. Store opioids in a secure place and out of reach of others (including children, family, friends and visitors). The last page(s) of this document has been signed and retained as a CHART COPY Signatures Patient Education Materials Chest Pain, Uncertain Cause Medication Leaflets My discharge plan and instructions have been reviewed and explained to me and IMATY AMANDA M understand my current condition and have read and understand these discharge instructions. I have received a written copy of the plan/instructions. If I have questions, I am aware that I should contact my doctor. 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 Prominent bilateral epicardial fat pads. Atherosclerotic aorta. Haziness at the bilateral lung bases is felt to represent superimposition of overlying structures/summation artifact. No vascular congestion, focal consolidation, large pleural effusion, or pneumothorax. Remote right rib fractures. IMPRESSION: No acute radiographic process. I have personally reviewed the images of this examination and agree with the resident's findings and interpretation. Interpreted by: Thang Genao DO Preliminary Report By: Terrence Xiao Electronically signed By Thang Genao DO Dictated Date: 11/12/2022 10:31:45 PM Prelim Date: 11/12/2022 10:33:17 PM Sign Date: 11/12/2022 10:38:00 PM Ordering Provider: COLTON BAE [facility]02-24-2023 Note ORIGINAL EXAMINATION: ONE XRAY VIEW OF THE CHEST 11/12/2022 10:28 pm COMPARISON: 10/19/2022 HISTORY: ORDERING SYSTEM PROVIDED HISTORY: Reason for Exam: chest pain FINDINGS: The cardiomediastinal silhouette appears stable. Prominent bilateral epicardial fat pads. Atherosclerotic aorta. Haziness at the bilateral lung bases is felt to represent superimposition of overlying structures/summation artifact. No vascular congestion, focal consolidation, large pleural effusion, or pneumothorax. Remote right rib fractures. IMPRESSION: No acute radiographic process. I have personally reviewed the images of this examination and agree with the resident's findings and interpretation. Interpreted by: Thang Genao DO Preliminary Report By: Terrence Xiao Electronically signed By Thang Genao DO Dictated Date: 11/12/2022 10:31:45 PM Prelim Date: 11/12/2022 10:33:17 PM Sign Date: 11/12/2022 10:38:00 PM Ordering Provider: COLTON [facility]02-20-2023 Miscellaneous Notes* Telephone Encounter - Sin Kirby APRN.CNP - 11/08/2022 11:47 AM EST The following approved medication requests have been transmitted electronically. Requested Prescriptions Signed Prescriptions Disp Refills clonazePAM (KLONOPIN) 0.5 mg tablet 10 tablet 0 Sig: Take one tablet as needed for prolonged convulsive seizure or cluster or 3 or more seizures in24 hours. Do not exceed more than 1 tablet per day. 10 tablets per 30 days. Authorizing Provider: SIN KIRBY APRN.CNP [facility] Discharge instructions Patient Education 10/19/2022 20:27:43 Constipation (Adult) Constipation (Adult) Constipation means that you have bowel movements that are less frequent than usual. Stools often become very hard and difficult to pass. Constipation is very common. At some point in life, it affects almost everyone. Since everyone's bowel habits are different, what is constipation to one person may not be to another. Your healthcare provider may do tests to diagnose constipation. It depends on what he or she finds when evaluating you. Symptoms of constipation include: Abdominal pain Bloating Vomiting Painful bowel movements Itching, swelling, bleeding, or pain around the anus Causes Constipation can have many causes. These include: Diet low in fiber Too much dairy Not drinking enough liquids Lack of exercise or physical activity (especially true for older adults) Changes in lifestyle or daily routine, including , aging, work, and travel Frequent use or misuse of laxatives Ignoring the urge to have a bowel movement or delaying it until later Medicines, such as certain prescription pain medicines, iron supplements, antacids, certain antidepressants, and calcium supplements Diseases like irritable bowel syndrome, bowel obstructions, stroke, diabetes, thyroid disease, Parkinson disease, hemorrhoids, and colon cancer Complications Potential complications of constipation can include: Hemorrhoids Rectal bleeding from hemorrhoids or anal fissures (skin tears) Hernias Dependency on laxatives Chronic constipation Fecal impaction, a severe form of constipation in which a large amount of hard stool is in your rectum that you can't pass Bowel obstruction or perforation Home care All treatment should be done after talking with your healthcare provider. This is especially true if you have another medical problems, are taking prescription medicines, or are an older adult. Treatment most often involves lifestyle changes. You may also need medicines. Your healthcare provider will tell you which will work best for you. Follow the advice below to help avoid this problem in the future. Lifestyle changes These lifestyle changes can help prevent constipation: Diet. Eat a high-fiber diet, with fresh fruit and vegetables, and reduce dairy intake, meats, and processed foods Fluids. It's important to get enough fluids each day. Drink plenty of water when you eat more fiber. If you are on diet that limits the amount of fluid you can have, talk about this with your healthcare provider. Regular exercise. Check with your healthcare provider first. Medicines Take any medicines as directed. Some laxatives are safe to use only every now and then. Others can be taken on a regular basis. While laxatives don't cause bowel dependence, they are treating the symptoms. So your constipation may return if you don't make other changes. Talk with your healthcare provider or pharmacist if you have questions. Prescription pain medicines can cause constipation. If you are taking this kind of medicine, ask your healthcare provider if you should also take a stool softener. Medicines you may take to treat constipation include: Fiber supplements Stool softeners Laxatives Enemas Rectal suppositories Follow-up care Follow up with your healthcare provider if symptoms don't get better in the next few days. You may need to have more tests or see a specialist. Call 911 Call 911 if any of these occur: Trouble breathing Stiff, rigid abdomen that is severely painful to touch Confusion Fainting or loss of consciousness Rapid heart rate Chest pain When to seek medical advice Call your healthcare provider right away if any of these occur: Fever of 100.4 F (38 C) or higher, or as directed by your healthcare provider Failure to resume normal bowel movements Pain in your abdomen or back gets worse Nausea or vomiting Swelling in your abdomen Blood in the stool Black, tarry stool Involuntary weight loss Weakness [id number] [employer]. [address] [place] [address], [place] [address]. All rights reserved. This information is not intended as a substitute for professional medical care. Always follow yourhealthcare professional's instructions. Follow Up Care 10/19/2022 11:04:23 With:KAYE BARTON MD Address: [address] [facility], [place] [address] [phone] When:2-4 days With:JC RIVERA Address: [address] [place], [place] [phone] [phone] When:2-4 days [facility] 01-31-2023 Emergency department Discharge summary Discharge Instructions Thank you for allowing [facility] to assist you with your healthcare needs. The following is importantdischarge information regarding your hospital visit. Diagnosis from Today's Visit Chest pain What to Do Next Instructions from Your Care Team No qualifying data available. Post Acute Orders No qualifying data available. You Need to Schedule the Following Appointments Follow Up with KAYE BARTON MD When Within 2-4 days Where: [address] [facility] [place] [address]- [phone] Follow Up with CJ RIVERA When Within 2-4 days Where: [address] [place] [address] [phone] Allergies penicillin (Rash) Neurontin (Vomiting) morphine (Cramping) sulfa drug Medications Please ask your primary doctor or pharmacist before taking any other medication not listed, including over the counter drugs, herbal medications, vitamins and or supplements as they may interact withur home medications. What How Much When Instructions Last Dose Unchanged acetaminophen (acetaminophen 500 mg oral tablet) 1 tab(s) by mouth Once a day as needed for as needed for pain Unchanged APAP/ butalbital/ caffeine (APAP/ butalbital/ caffeine 325-50-40 mg oral tablet (Fioricet)) 1 tab(s) by mouth Every 4 hours as needed for as needed Unchanged APAP/ butalbital/ caffeine (APAP/ butalbital/ caffeine 325-50-40 mg oral tablet (Fioricet)) 1 tab(s) by mouth Every 4 hours as needed for as needed Unchanged ARIPiprazole (Abilify 10 mg oral tablet) 1 tab(s) by mouth Once a day Duration: 30 Days Unchanged ascorbic acid (Vitamin C 1000 mg oral tablet) 1 tab(s) by mouth Once a day Unchanged bismuth subsalicylate (bismuth subsalicylate 527 mg/ 30 mL oral suspension) 60 Milliliter by mouth Four (4) times a day as needed for for dyspepsia Duration: 14 Days not to exceed 240 mL/ day Unchanged buPROPion (buPROPion 150 mg/ 12 hours (SR) oral tablet, extended release) 1 tab(s) by mouth Two (2) times a day Unchanged busPIRone (busPIRone 10 mg oral tablet) 1 tab(s) by mouth Three (3) times a day Duration: 30 Days Unchanged cholecalciferol (cholecalciferol 1250 mcg (50,000 intl units) oral capsule) 1 cap by mouth Every Tuesday Unchanged clonazePAM (clonazePAM 0.5 mg oral tablet) 1 tab(s) by mouth Once a day as needed for Seizures Unchanged cloNIDine (cloNIDine 0.2 mg oral tablet) 1 tab(s) by mouth Two (2) times a day Unchanged dicyclomine (dicyclomine 10 mg oral capsule) 1 cap by mouth Four (4) times a day Duration: 10 Days Unchanged furosemide (furosemide 40 mg oral tablet) 1 tab(s) by mouth Once a day Unchanged lacosamide (lacosamide 100 mg oral tablet) 1 tab(s) by mouth Once a day (in the morning) Unchanged lacosamide (lacosamide 100 mg oral tablet) 2 tab(s) by mouth Once a day (in the evening) Unchanged lactulose (lactulose 10 g/ 15 mL oral syrup) 15 Milliliter by mouth Once a day Unchanged linaclotide (Linzess 290 mcg oral capsule) 1 cap by mouth Once a day Unchanged magnesium oxide (magnesium oxide 400 mg oral tablet) 1 tab(s) by mouth Once a day Unchanged methenamine (methenamine hippurate 1 g oral tablet) 1 tab(s) by mouth Once a day Duration: 90 Days Unchanged metoprolol (metoprolol tartrate 25 mg oral tablet) 1 tab(s) by mouth Two (2) times a day Unchanged omeprazole (omeprazole 40 mg oral delayed release capsule) 1 cap by mouth Two (2) times a day Duration: 30 Days Unchanged potassium chloride (potassium chloride 20 mEq oral tablet, extended release) 1 tab(s) by mouth Three (3) times a day Unchanged rivaroxaban (Xarelto 10 mg oral tablet) 1 tab(s) by mouth Once a day Unchanged rOPINIRole (rOPINIRole 0.5 mg oral tablet) 1 tab(s) by mouth Two (2) times a day Duration: 30 Days Unchanged spironolactone (spironolactone 25 mg oral tablet) 1 tab(s) by mouth Once a day Unchanged valACYclovir (valACYclovir 500 mg oral tablet) 1 tab(s) by mouth Once a day Unchanged venlafaxine (venlafaxine 150 mg oral capsule, extended release) 1 cap by mouth Once a day Unchanged venlafaxine (venlafaxine 150 mg oral capsule, extended release) 1 cap by mouth Once a day Please take this list to your next doctor s visit. Bring all medications you take, including over the counter medications, herbals and other supplements with you to your doctor s visit. Patients and families are reminded to discard old lists and to update any records with all medication providers or retail pharmacies. Education Materials Constipation (Adult) Constipation means that you have bowel movements that are less frequent than usual. Stools often become very hard and difficult to pass. Constipation is very common. At some point in life, it affects almost everyone. Since everyone's bowel habits are different, what is constipation to one person may not be to another. Your healthcare provider may do tests to diagnose constipation. It depends on what he or she finds when evaluating you. Symptoms of constipation include: Abdominal pain Bloating Vomiting Painful bowel movements Itching, swelling, bleeding, or pain around the anus Causes Constipation can have many causes. These include: Diet low in fiber Too much dairy Not drinking enough liquids Lack of exercise or physical activity (especially true for older adults) Changes in lifestyle or daily routine, including , aging, work, and travel Frequent use or misuse of laxatives Ignoring the urge to have a bowel movement or delaying it until later Medicines, such as certain prescription pain medicines, iron supplements, antacids, certain antidepressants, and calcium supplements Diseases like irritable bowel syndrome, bowel obstructions, stroke, diabetes, thyroid disease, Parkinson disease, hemorrhoids, and colon cancer Complications Potential complications of constipation can include: Hemorrhoids Rectal bleeding from hemorrhoids or anal fissures (skin tears) Hernias Dependency on laxatives Chronic constipation Fecal impaction, a severe form of constipation in which a large amount of hard stool is in your rectum that you can't pass Bowel obstruction or perforation Home care All treatment should be done after talking with your healthcare provider. This is especially true if you have another medical problems, are taking prescription medicines, or are an older adult. Treatment most often involves lifestyle changes. You may also need medicines. Your healthcare provider will tell you which will work best for you. Follow the advice below to help avoid this problem in the future. Lifestyle changes These lifestyle changes can help prevent constipation: Diet. Eat a high-fiber diet, with fresh fruit and vegetables, and reduce dairy intake, meats, and processed foods Fluids. It's important to get enough fluids each day. Drink plenty of water when you eat more fiber. If you are on diet that limits the amount of fluid you can have, talk about this with your healthcare provider. Regular exercise. Check with your healthcare provider first. Medicines Take any medicines as directed. Some laxatives are safe to use only every now and then. Others can be taken on a regular basis. While laxatives don't cause bowel dependence, they are treating the symptoms. So your constipation may return if you don't make other changes. Talk with your healthcare provider or pharmacist if you have questions. Prescription pain medicines can cause constipation. If you are taking this kind of medicine, ask your healthcare provider if you should also take a stool softener. Medicines you may take to treat constipation include: Fiber supplements Stool softeners Laxatives Enemas Rectal suppositories Follow-up care Follow up with your healthcare provider if symptoms don't get better in the next few days. You may need to have more tests or see a specialist. Call 911 Call 911 if any of these occur: Trouble breathing Stiff, rigid abdomen that is severely painful to touch Confusion Fainting or loss of consciousness Rapid heart rate Chest pain When to seek medical advice Call your healthcare provider right away if any of these occur: Fever of 100.4 F (38 C) or higher, or as directed by your healthcare provider Failure to resume normal bowel movements Pain in your abdomen or back gets worse Nausea or vomiting Swelling in your abdomen Blood in the stool Black, tarry stool Involuntary weight loss Weakness [phone] [employer]. [address] [place] [address], [place] [address]. All rights reserved. This information is not intended as a substitute for professional medical care. Always follow yourhealthcare professional's instructions. Additional Information VACCINATE! IT SAVES LIVES! Members of the community who have not yet received the COVID-19 vaccine and would like to receive it can visit one of [facility] vaccine clinics. There are many vaccine clinic locations within the [facility]. For locations and available times, please visit [email or web address]. It is important to note that some COVID mobile vaccine clinics are held outdoors and may be canceled in rainy orstormy conditions. To learn more about pediatric vaccinations (ages 5-11), we invite you to visit the [facility] webpage. [email or web address] [email or web address] learn more about the COVID-19 vaccine, we invite you to visit the [place] website for a list of frequently asked questions. [email or web address] _[email or web address].pdf [facility] Patient Portal Access Instructions: Stay connected with your healthcare team and access your personal medical information anytime with the [facility] Patient Portal. If you would like a full copy of your medical records please contact the [facility] Medical Records Department Tuesday through Tuesday between 8a.m. and 4:30p.m. Please follow the directions below to access the portal: 1.Access the email account you provided upon registration to the hospital.2.Look for an invitation email from [facility].3.Open the email and access the invitation link: Accept Invitation to [facility]4.Fill in the required azul to create your account. Sign into [email or web address] with your username and password that you created in the above steps to stay up to date. You can then view a summary of results, a summary of your visits, and the ability to download your summaries to your computer or send the information securely to a physician. Remember that your healthcare information is confidential, so carefully consider who you will allow to register on the [facility] Patient Portal for access to your information. You can also access the [facility] Patient Portal on the [employer]. Simply click on Health Records under HealthData and then click on the [facility] logo. HOW TO SAFELY DISPOSE OF PRESCRIPTION MEDICATIONS Please use one of the following methods to safely dispose of your unused medications. 1.Use a drug disposal kit: the drug disposal pouch allows you to safely discard your old and unuseddrugs. Ask your nurse to give you one when you are discharged.2.Visit a local take-back location: Many local pharmacies and police departments have programs that collect old and unwanted prescriptiondrugs. Call your local pharmacy or go to http://[employer].CMGE/5Y1Mj0g to find one close to you.3.Make use of household items: Use cat litter or old coffee grounds to dispose medications if other options arenot available. Mix your drugs with these household products, seal them in an airtight container andthrow it into the garbage. Call [facility]: [phone] to be sure your drugs can be disposed of in this way. Some medicines may require a different approach.4.Never flush your medications down the toilet. IF YOU HAVE BEEN PRESCRIBED AN OPIOIDS FOR PAIN If you have been prescribed an opioid (such as hydrocodone, oxycodone or morphine), it is critical to understand the possible side effects and risks of opioid pain medications. Even when taken as directed, opioids can have several side effects including: Tolerance, meaning you might need to take more of a medication for the same pain relief. Nausea, vomiting and/or constipation. Sleepiness, dizziness, dry mouth, confusion, depression or itching. Physical dependence, meaning you have withdrawal symptoms when a medication is stopped ? this can develop within a few days. KNOW YOUR RESPONSIBILITIES It is important to know exactly how much and how often to take the opioid pain medications you are prescribed. Never take opioids in higher amounts or more often than prescribed. Do not combine opioids with alcohol or other drugs that cause drowsiness, such as benzodiazepines, also known as benzos,including diazepam and alprazolam, muscle relaxants or sleep aids. Never sell or share prescriptionopioids. This is illegal. Store opioids in a secure place and out of reach of others (including children, family, friends and visitors). The last page(s) of this document has been signed and retained as a CHART COPY Signatures Patient Education Materials Constipation (Adult) Medication Leaflets My discharge plan and instructions have been reviewed and explained to me and I,MATY, DOROTHEA M understand my current condition and have read and understand these discharge instructions. I have received a written copy of the plan/instructions. If I have questions, I am aware that I should contact my doctor. 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 There is moderate gas and a large amount of stool throughout the colon. No dilated bowel loops, abnormal fluid levels or free air is seen. No visible calculi. An IVC filter is present as seen on CT. IMPRESSION: Nonobstructive bowel gas pattern. Fecal loading of the large bowel. Interpreted by: Donato De La Garza MD Preliminary Report By: Donato De La Garza MD Electronically signed By Donato De La Garza MD Dictated Date: 10/19/2022 8:12:30 PM Prelim Date: 10/19/2022 8:14:33 PM Sign Date: 10/19/2022 8:14:33 PM Ordering Provider: MOLINA QUIROZ [id number] Note ORIGINAL EXAMINATION: Supine and upright 2 XRAY VIEWS OF THE ABDOMEN10/19/2022 7:47 pm COMPARISON: CT yesterday HISTORY: ORDERING SYSTEM PROVIDED HISTORY: Reason for Exam: decreased bowel movements, ct yesterday FINDINGS: Bowel gas pattern is nonobstructive. There is moderate gas and a large amount of stool throughout the colon. No dilated bowel loops, abnormal fluid levels or free air is seen. No visible calculi. An IVC filter is present as seen on CT. IMPRESSION: Nonobstructive bowel gas pattern. Fecal loading of the large bowel. Interpreted by: Donato De La Garza MD Preliminary Report By: Donato De La Garza MD Electronically signed By Donato De La Garza MD Dictated Date: 10/19/2022 8:12:30 PM Prelim Date: 10/19/2022 8:14:33 PM Sign Date: 10/19/2022 8:14:33 PM [facility] ORIGINAL EXAMINATION: ONE XRAY VIEW OF THE CHEST 10/19/2022 11:20 am COMPARISON: 02/11/2022 HISTORY: ORDERING SYSTEM PROVIDED HISTORY: Reason for Exam: cp Chest pain FINDINGS: The cardiomediastinal silhouette is unchanged. There is no focal consolidation, pleural effusion, vascular congestion, or pneumothorax. Remote right rib fractures. IMPRESSION: No acute radiographic cardiopulmonary findings. Interpreted by: Alaina Benjamin MD Preliminary Report By: Alaina Benjamin MD Electronically signed By Alaina Benjamin MD Dictated Date: 10/19/2022 12:00:30 PM Prelim Date: 10/19/2022 12:01:00 PM Sign Date: 10/19/2022 12:01:00 PM Ordering Provider: [facility]01-31[facility]23 Note ORIGINAL EXAMINATION: ONE XRAY VIEW OF THE CHEST 10/19/2022 11:20 am COMPARISON: 02/11/2022 HISTORY: ORDERING SYSTEM PROVIDED HISTORY: Reason for Exam: cp Chest pain FINDINGS: The cardiomediastinal silhouette is unchanged. There is no focal consolidation, pleural effusion, vascular congestion, or pneumothorax. Remote right rib fractures. IMPRESSION: No acute radiographic cardiopulmonary findings. Interpreted by: Alaina Benjamin MD Preliminary Report By: Alaina Benjamin MD Electronically signed By Alaina Benjamin MD Dictated Date: 10/19/2022 12:00:30 PM Prelim Date: 10/19/2022 12:01:00 PM Sign Date: 10/19/2022 12:01:00 PM Ordering Provider: [facility]01-30[facility]2023 Hospital Discharge instructions Patient Education 10/18/2022 19:03:28 Abdominal Pain Abdominal Pain Abdominal pain is pain in the stomach or belly area. Everyone has this pain from time to time. In many cases it goes away on its own. But abdominal pain can sometimes be due to a serious problem, such as appendicitis. So it s important to know when to get help. Causes of abdominal pain There are many possible causes of abdominal pain. Common causes in adults include: Constipation, diarrhea, or gas Stomach acid flowing back up into the esophagus (acid reflux or heartburn) Severe acid reflux, called GERD (gastroesophageal reflux disease) A sore in the lining of the stomach or small intestine (peptic ulcer) Inflammation of the gallbladder, liver, or pancreas Gallstones or kidney stones Appendicitis Intestinal blockage An internal organ pushing through a muscle or other tissue (hernia) Urinary tract infections In women, menstrual cramps, fibroids, ovarian cysts, pelvic inflammatory disease, or endometriosis Inflammation or infection of the intestines, including Crohn's disease and ulcerative colitis Irritable bowel syndrome Diagnosing the cause of abdominal pain Your healthcare provider will give you a physical exam help find the cause of your pain. If needed,you will have tests. Belly pain has many possible causes. So it can be hard to find the reason for your pain. Giving details about your pain can help. Tell your provider where and when you feel the pain, and what makes it better or worse. Also let your provider know if you have other symptoms such as: Fever Tiredness Upset stomach (nausea) Vomiting Changes in bathroom habits Blood in the stool or black, tarry stool Weight loss that you can't explain (involuntary weight loss?) Also report any family history of stomach or intestinal problems, or cancers. Tell your provider about all your alcohol use and drug use. Tell your provider about all medicines you use, including herbs, vitamins, and supplements. Treating abdominal pain Some causes of pain need emergency medical treatment right away. These include appendicitis or a bowel blockage. Other problems can be treated with rest, fluids, or medicines. Your healthcare provider can give you specific instructions for treatment or self-care based on what is causing your pain. If you have vomiting or diarrhea, sip water or other clear fluids. When you are ready to eat solid foods again, start with small amounts of xbxw-uq-gdclzi, low- fat foods. These include apple sauce, toast, or crackers. When to get medical care Call 911 or go to the hospital right away if you: Can t pass stool and are vomiting Are vomiting blood or have bloody diarrhea or black, tarry diarrhea Have chest, neck, or shoulder pain Feel like you might pass out Have pain in your shoulder blades with nausea Have sudden, severe belly pain Have new, severe pain unlike any you have felt before Have a belly that is rigid, hard, and hurts to touch Call your healthcare provider if you have: Pain for more than 5 days Bloating for more than 2 days Diarrhea for more than 5 days A fever of 100.4 F (38 C) or higher, or as directed by your healthcare provider Pain that gets worse Weight loss for no reason Continued lack of appetite Blood in your stool How to prevent abdominal pain Here are some tips to help prevent abdominal pain: Eat smaller amounts of food at each meal. Don't eat greasy, fried, or other high-fat foods. Don't eat foods that give you gas. Exercise regularly. Drink plenty of fluids. To help prevent GERD symptoms: Quit smoking. Reduce alcohol and foods that increase stomach acid. Don't use aspirin or yzcm-zee-skisdat pain and fever medicines, if possible. This includes nonsteroidal anti-inflammatory drugs (NSAIDs). Lose excess weight. Finish eating at least 2 hours before you go to bed or lie down. Raise the head of your bed. 2513-9881 [employer]. [address] [place] [address]. All rights reserved. This information is not intended as a substitute for professional medical care. Always follow yourhealthcare professional's instructions. Follow Up Care 10/18/2022 12:03:53 With:CJ RIVERA Address: [place] [address]- [phone] When:2-4 days [facility] 01-30-[facility]23 Emergency department Discharge summary Discharge Instructions Thank you for allowing [place] to assist you with your healthcare needs. The following is importantdischarge information regarding your hospital visit. Diagnosis from Today's Visit Abdominal pain Abdominal pain Vomiting What to Do Next Instructions from Your Care Team No qualifying data available. Post Acute Orders No qualifying data available. You Need to Schedule the Following Appointments Follow Up with CJ RIVERA When Within 2-4 days Where: [place] [address]- [phone] Allergies penicillin (Rash) Neurontin (Vomiting) morphine (Cramping) sulfa drug Medications Please ask your primary doctor or pharmacist before taking any other medication not listed, including over the counter drugs, herbal medications, vitamins and or supplements as they may interact withyour home medications. What How Much When Instructions Last Dose New bismuth subsalicylate (bismuth subsalicylate 527 mg/ 30 mL oral suspension) 60 Milliliter by mouth Four (4) times a day as needed for for dyspepsia Duration: 14 Days not to exceed 240 mL/ day Printed Prescription New dicyclomine (dicyclomine 10 mg oral capsule) 1 cap by mouth Four (4) times a day Duration: 10 Days Printed Prescription Unchanged acetaminophen (acetaminophen 500 mg oral tablet) 1 tab(s) by mouth Once a day as needed for as needed for pain Unchanged APAP/ butalbital/ caffeine (APAP/ butalbital/ caffeine 325-50-40 mg oral tablet (Fioricet)) 1 tab(s) by mouth Every 4 hours as needed for as needed Unchanged APAP/ butalbital/ caffeine (APAP/ butalbital/ caffeine 325-50-40 mg oral tablet (Fioricet)) 1 tab(s) by mouth Every 4 hours as needed for as needed Unchanged ARIPiprazole (Abilify 10 mg oral tablet) 1 tab(s) by mouth Once a day Duration: 30 Days Unchanged ascorbic acid (Vitamin C 1000 mg oral tablet) 1 tab(s) by mouth Once a day Unchanged buPROPion (buPROPion 150 mg/ 12 hours (SR) oral tablet, extended release) 1 tab(s) by mouth Two (2) times a day Unchanged busPIRone (busPIRone 10 mg oral tablet) 1 tab(s) by mouth Three (3) times a day Duration: 30 Days Unchanged cholecalciferol (cholecalciferol 1250 mcg (50,000 intl units) oral capsule) 1 cap by mouth Every Tuesday Unchanged clonazePAM (clonazePAM 0.5 mg oral tablet) 1 tab(s) by mouth Once a day as needed for Seizures Unchanged cloNIDine (cloNIDine 0.2 mg oral tablet) 1 tab(s) by mouth Two (2) times a day Unchanged furosemide (furosemide 40 mg oral tablet) 1 tab(s) by mouth Once a day Unchanged lacosamide (lacosamide 100 mg oral tablet) 1 tab(s) by mouth Once a day (in the morning) Unchanged lacosamide (lacosamide 100 mg oral tablet) 2 tab(s) by mouth Once a day (in the evening) Unchanged lactulose (lactulose 10 g/ 15 mL oral syrup) 15 Milliliter by mouth Once a day Unchanged linaclotide (Linzess 290 mcg oral capsule) 1 cap by mouth Once a day Unchanged magnesium oxide (magnesium oxide 400 mg oral tablet) 1 tab(s) by mouth Once a day Unchanged methenamine (methenamine hippurate 1 g oral tablet) 1 tab(s) by mouth Once a day Duration: 90 Days Unchanged metoprolol (metoprolol tartrate 25 mg oral tablet) 1 tab(s) by mouth Two (2) times a day Unchanged omeprazole (omeprazole 40 mg oral delayed release capsule) 1 cap by mouth Two (2) times a day Duration: 30 Days Printed Prescription Unchanged potassium chloride (potassium chloride 20 mEq oral tablet, extended release) 1 tab(s) by mouth Three (3) times a day Unchanged rivaroxaban (Xarelto 10 mg oral tablet) 1 tab(s) by mouth Once a day Unchanged rOPINIRole (rOPINIRole 0.5 mg oral tablet) 1 tab(s) by mouth Two (2) times a day Duration: 30 Days Unchanged spironolactone (spironolactone 25 mg oral tablet) 1 tab(s) by mouth Once a day Unchanged valACYclovir (valACYclovir 500 mg oral tablet) 1 tab(s) by mouth Once a day Unchanged venlafaxine (venlafaxine 150 mg oral capsule, extended release) 1 cap by mouth Once a day Unchanged venlafaxine (venlafaxine 150 mg oral capsule, extended release) 1 cap by mouth Once a day Please take this list to your next doctor s visit. Bring all medications you take, including over the counter medications, herbals and other supplements with you to your doctor s visit. Patients and families are reminded to discard old lists and to update any records with all medication providers or retail pharmacies. Education Materials Abdominal Pain Abdominal pain is pain in the stomach or belly area. Everyone has this pain from time to time. In many cases it goes away on its own. But abdominal pain can sometimes be due to a serious problem, such as appendicitis. So it s important to know when to get help. Causes of abdominal pain There are many possible causes of abdominal pain. Common causes in adults include: Constipation, diarrhea, or gas Stomach acid flowing back up into the esophagus (acid reflux or heartburn) Severe acid reflux, called GERD (gastroesophageal reflux disease) A sore in the lining of the stomach or small intestine (peptic ulcer) Inflammation of the gallbladder, liver, or pancreas Gallstones or kidney stones Appendicitis Intestinal blockage An internal organ pushing through a muscle or other tissue (hernia) Urinary tract infections In women, menstrual cramps, fibroids, ovarian cysts, pelvic inflammatory disease, or endometriosis Inflammation or infection of the intestines, including Crohn's disease and ulcerative colitis Irritable bowel syndrome Diagnosing the cause of abdominal pain Your healthcare provider will give you a physical exam help find the cause of your pain. If needed,you will have tests. Belly pain has many possible causes. So it can be hard to find the reason for your pain. Giving details about your pain can help. Tell your provider where and when you feel the pain, and what makes it better or worse. Also let your provider know if you have other symptoms such as: Fever Tiredness Upset stomach (nausea) Vomiting Changes in bathroom habits Blood in the stool or black, tarry stool Weight loss that you can't explain (involuntary weight loss?) Also report any family history of stomach or intestinal problems, or cancers. Tell your provider about all your alcohol use and drug use. Tell your provider about all medicines you use, including herbs, vitamins, and supplements. Treating abdominal pain Some causes of pain need emergency medical treatment right away. These include appendicitis or a bowel blockage. Other problems can be treated with rest, fluids, or medicines. Your healthcare provider can give you specific instructions for treatment or self-care based on what is causing your pain. If you have vomiting or diarrhea, sip water or other clear fluids. When you are ready to eat solid foods again, start with small amounts of nrgs-xw-udfrmh, low- fat foods. These include apple sauce, toast, or crackers. When to get medical care Call 911 or go to the hospital right away if you: Can t pass stool and are vomiting Are vomiting blood or have bloody diarrhea or black, tarry diarrhea Have chest, neck, or shoulder pain Feel like you might pass out Have pain in your shoulder blades with nausea Have sudden, severe belly pain Have new, severe pain unlike any you have felt before Have a belly that is rigid, hard, and hurts to touch Call your healthcare provider if you have: Pain for more than 5 days Bloating for more than 2 days Diarrhea for more than 5 days A fever of 100.4 F (38 C) or higher, or as directed by your healthcare provider Pain that gets worse Weight loss for no reason Continued lack of appetite Blood in your stool How to prevent abdominal pain Here are some tips to help prevent abdominal pain: Eat smaller amounts of food at each meal. Don't eat greasy, fried, or other high-fat foods. Don't eat foods that give you gas. Exercise regularly. Drink plenty of fluids. To help prevent GERD symptoms: Quit smoking. Reduce alcohol and foods that increase stomach acid. Don't use aspirin or djnk-txm-bbxxxef pain and fever medicines, if possible. This includes nonsteroidal anti-inflammatory drugs (NSAIDs). Lose excess weight. Finish eating at least 2 hours before you go to bed or lie down. Raise the head of your bed. [id number] [employer]. [address] [place] [address]. All rights reserved. This information is not intended as a substitute for professional medical care. Always follow yourhealthcare professional's instructions. Additional Information VACCINATE! IT SAVES LIVES! Members of the community who have not yet received the COVID-19 vaccine and would like to receive it can visit one of [facility] vaccine clinics. There are many vaccine clinic locations within the [facility]. For locations and available times, please visit [email or web address]. It is important to note that some COVID mobile vaccine clinics are held outdoors and may be canceled in rainy orstormy conditions. To learn more about pediatric vaccinations (ages 5-11), we invite you to visit the [facility] webpage. [email or web address] [email or web address] learn more about the COVID-19 vaccine, we invite you to visit the [employer] website for a list of frequently asked questions. [email or web address] [facility] Patient Portal Access Instructions: Stay connected with your healthcare team and access your personal medical information anytime with the [facility] Patient Portal. If you would like a full copy of your medical records please contact the [facility] Medical Records Department Tuesday through Tuesday between 8a.m. and 4:30p.m. Please follow the directions below to access the portal: 1.Access the email account you provided upon registration to the [facility].2.Look for an invitation email from [facility].3.Open the email and access the invitation link: Accept Invitation to [facility]4.Fill in the required azul to create your account. Sign into [email or web address] with your username and password that you created in the above steps to stay up to date. You can then view a summary of results, a summary of your visits, and the ability to download your summaries to your computer or send the information securely to a physician. Remember that your healthcare information is confidential, so carefully consider who you will allow to register on the [facility] Patient Portal for access to your information. You can also access the [facility] Patient Portal on the [employer]. Simply click on Health Records under [employer] and then click on the [facility] logo. HOW TO SAFELY DISPOSE OF PRESCRIPTION MEDICATIONS Please use one of the following methods to safely dispose of your unused medications. 1.Use a drug disposal kit: the drug disposal pouch allows you to safely discard your old and unuseddrugs. Ask your nurse to give you one when you are discharged.2.Visit a local take-back location: Many local pharmacies and police departments have programs that collect old and unwanted prescriptiondrugs. Call your local pharmacy or go to http://bit.ly/4A9Qq2t to find one close to you.3.Make use of household items: Use cat litter or old coffee grounds to dispose medications if other options arenot available. Mix your drugs with these household products, seal them in an airtight container andthrow it into the garbage. Call [facility]: [phone] to be sure your drugs can be disposed of in this way. Some medicines may require a different approach.4.Never flush your medications down the toilet. IF YOU HAVE BEEN PRESCRIBED AN OPIOIDS FOR PAIN If you have been prescribed an opioid (such as hydrocodone, oxycodone or morphine), it is critical to understand the possible side effects and risks of opioid pain medications. Even when taken as directed, opioids can have several side effects including: Tolerance, meaning you might need to take more of a medication for the same pain relief. Nausea, vomiting and/or constipation. Sleepiness, dizziness, dry mouth, confusion, depression or itching. Physical dependence, meaning you have withdrawal symptoms when a medication is stopped ? this can develop within a few days. KNOW YOUR RESPONSIBILITIES It is important to know exactly how much and how often to take the opioid pain medications you are prescribed. Never take opioids in higher amounts or more often than prescribed. Do not combine opioids with alcohol or other drugs that cause drowsiness, such as benzodiazepines, also known as benzos,including diazepam and alprazolam, muscle relaxants or sleep aids. Never sell or share prescriptionopioids. This is illegal. Store opioids in a secure place and out of reach of others (including children, family, friends and visitors). The last page(s) of this document has been signed and retained as a CHART COPY Signatures Patient Education Materials Abdominal Pain Medication Leaflets My discharge plan and instructions have been reviewed and explained to me and I,DEMI RUTLEDGEANDA M understand my current condition and have read and understand these discharge instructions. I have received a written copy of the plan/instructions. If I have questions, I am aware that I should contact my doctor. 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 The following is importantdischarge information regarding your hospital visit. Diagnosis from Today's Visit Abdominal pain Abdominal pain Vomiting What to Do Next Instructions from Your Care Team No qualifying data available. Post Acute Orders No qualifying data available. You Need to Schedule the Following Appointments Follow Up with CJ RIVERA When Within 2-4 days Where: [address] [facility] [place] [address]- [phone] Allergies penicillin (Rash) Neurontin (Vomiting) morphine (Cramping) sulfa drug Medications Please ask your primary doctor or pharmacist before taking any other medication not listed, including over the counter drugs, herbal medications, vitamins and or supplements as they may interact withyour home medications. What How Much When Instructions Last Dose New bismuth subsalicylate (bismuth subsalicylate 527 mg/ 30 mL oral suspension) 60 Milliliter by mouth Four (4) times a day as needed for for dyspepsia Duration: 14 Days not to exceed 240 mL/ day Printed Prescription New dicyclomine (dicyclomine 10 mg oral capsule) 1 cap by mouth Four (4) times a day Duration: 10 Days Printed Prescription Unchanged acetaminophen (acetaminophen 500 mg oral tablet) 1 tab(s) by mouth Once a day as needed for as needed for pain Unchanged APAP/ butalbital/ caffeine (APAP/ butalbital/ caffeine 325-50-40 mg oral tablet (Fioricet)) 1 tab(s) by mouth Every 4 hours as needed for as needed Unchanged APAP/ butalbital/ caffeine (APAP/ butalbital/ caffeine 325-50-40 mg oral tablet (Fioricet)) 1 tab(s) by mouth Every 4 hours as needed for as needed Unchanged ARIPiprazole (Abilify 10 mg oral tablet) 1 tab(s) by mouth Once a day Duration: 30 Days Unchanged ascorbic acid (Vitamin C 1000 mg oral tablet) 1 tab(s) by mouth Once a day Unchanged buPROPion (buPROPion 150 mg/ 12 hours (SR) oral tablet, extended release) 1 tab(s) by mouth Two (2) times a day Unchanged busPIRone (busPIRone 10 mg oral tablet) 1 tab(s) by mouth Three (3) times a day Duration: 30 Days Unchanged cholecalciferol (cholecalciferol 1250 mcg (50,000 intl units) oral capsule) 1 cap by mouth Every Tuesday Unchanged clonazePAM (clonazePAM 0.5 mg oral tablet) 1 tab(s) by mouth Once a day as needed for Seizures Unchanged cloNIDine (cloNIDine 0.2 mg oral tablet) 1 tab(s) by mouth Two (2) times a day Unchanged furosemide (furosemide 40 mg oral tablet) 1 tab(s) by mouth Once a day Unchanged lacosamide (lacosamide 100 mg oral tablet) 1 tab(s) by mouth Once a day (in the morning) Unchanged lacosamide (lacosamide 100 mg oral tablet) 2 tab(s) by mouth Once a day (in the evening) Unchanged lactulose (lactulose 10 g/ 15 mL oral syrup) 15 Milliliter by mouth Once a day Unchanged linaclotide (Linzess 290 mcg oral capsule) 1 cap by mouth Once a day Unchanged magnesium oxide (magnesium oxide 400 mg oral tablet) 1 tab(s) by mouth Once a day Unchanged methenamine (methenamine hippurate 1 g oral tablet) 1 tab(s) by mouth Once a day Duration: 90 Days Unchanged metoprolol (metoprolol tartrate 25 mg oral tablet) 1 tab(s) by mouth Two (2) times a day Unchanged omeprazole (omeprazole 40 mg oral delayed release capsule) 1 cap by mouth Two (2) times a day Duration: 30 Days Printed Prescription Unchanged potassium chloride (potassium chloride 20 mEq oral tablet, extended release) 1 tab(s) by mouth Three (3) times a day Unchanged rivaroxaban (Xarelto 10 mg oral tablet) 1 tab(s) by mouth Once a day Unchanged rOPINIRole (rOPINIRole 0.5 mg oral tablet) 1 tab(s) by mouth Two (2) times a day Duration: 30 Days Unchanged spironolactone (spironolactone 25 mg oral tablet) 1 tab(s) by mouth Once a day Unchanged valACYclovir (valACYclovir 500 mg oral tablet) 1 tab(s) by mouth Once a day Unchanged venlafaxine (venlafaxine 150 mg oral capsule, extended release) 1 cap by mouth Once a day Unchanged venlafaxine (venlafaxine 150 mg oral capsule, extended release) 1 cap by mouth Once a day Please take this list to your next doctor s visit. Bring all medications you take, including over the counter medications, herbals and other supplements with you to your doctor s visit. Patients and families are reminded to discard old lists and to update any records with all medication providers or retail pharmacies. Education Materials Abdominal Pain Abdominal pain is pain in the stomach or belly area. Everyone has this pain from time to time. In many cases it goes away on its own. But abdominal pain can sometimes be due to a serious problem, such as appendicitis. So it s important to know when to get help. Causes of abdominal pain There are many possible causes of abdominal pain. Common causes in adults include: Constipation, diarrhea, or gas Stomach acid flowing back up into the esophagus (acid reflux or heartburn) Severe acid reflux, called GERD (gastroesophageal reflux disease) A sore in the lining of the stomach or small intestine (peptic ulcer) Inflammation of the gallbladder, liver, or pancreas Gallstones or kidney stones Appendicitis Intestinal blockage An internal organ pushing through a muscle or other tissue (hernia) Urinary tract infections In women, menstrual cramps, fibroids, ovarian cysts, pelvic inflammatory disease, or endometriosis Inflammation or infection of the intestines, including Crohn's disease and ulcerative colitis Irritable bowel syndrome Diagnosing the cause of abdominal pain Your healthcare provider will give you a physical exam help find the cause of your pain. If needed,you will have tests. Belly pain has many possible causes. So it can be hard to find the reason for your pain. Giving details about your pain can help. Tell your provider where and when you feel the pain, and what makes it better or worse. Also let your provider know if you have other symptoms such as: Fever Tiredness Upset stomach (nausea) Vomiting Changes in bathroom habits Blood in the stool or black, tarry stool Weight loss that you can't explain (involuntary weight loss?) Also report any family history of stomach or intestinal problems, or cancers. Tell your provider about all your alcohol use and drug use. Tell your provider about all medicines you use, including herbs, vitamins, and supplements. Treating abdominal pain Some causes of pain need emergency medical treatment right away. These include appendicitis or a bowel blockage. Other problems can be treated with rest, fluids, or medicines. Your healthcare provider can give you specific instructions for treatment or self-care based on what is causing your pain. If you have vomiting or diarrhea, sip water or other clear fluids. When you are ready to eat solid foods again, start with small amounts of ztsa-xk-vqdici, low- fat foods. These include apple sauce, toast, or crackers. When to get medical care Call 911 or go to the hospital right away if you: Can t pass stool and are vomiting Are vomiting blood or have bloody diarrhea or black, tarry diarrhea Have chest, neck, or shoulder pain Feel like you might pass out Have pain in your shoulder blades with nausea Have sudden, severe belly pain Have new, severe pain unlike any you have felt before Have a belly that is rigid, hard, and hurts to touch Call your healthcare provider if you have: Pain for more than 5 days Bloating for more than 2 days Diarrhea for more than 5 days A fever of 100.4 F (38 C) or higher, or as directed by your healthcare provider Pain that gets worse Weight loss for no reason Continued lack of appetite Blood in your stool How to prevent abdominal pain Here are some tips to help prevent abdominal pain: Eat smaller amounts of food at each meal. Don't eat greasy, fried, or other high-fat foods. Don't eat foods that give you gas. Exercise regularly. Drink plenty of fluids. To help prevent GERD symptoms: Quit smoking. Reduce alcohol and foods that increase stomach acid. Don't use aspirin or bizd-qog-ykcwkwh pain and fever medicines, if possible. This includes nonsteroidal anti-inflammatory drugs (NSAIDs). Lose excess weight. Finish eating at least 2 hours before you go to bed or lie down. Raise the head of your bed. 9838-2483 [employer]. [address] [place] [address], [place] [address]. All rights reserved. This information is not intended as a substitute for professional medical care. Always follow yourhealthcare professional's instructions. Additional Information VACCINATE! IT SAVES LIVES! Members of the community who have not yet received the COVID-19 vaccine and would like to receive it can visit one of [facility] vaccine clinics. There are many vaccine clinic locations within the [facility]. For locations and available times, please visit [email or web address]. It is important to note that some COVID mobile vaccine clinics are held outdoors and may be canceled in rainy orstormy conditions. To learn more about pediatric vaccinations (ages 5-11), we invite you to visit the [facility] webpage. [email or web address]/[email or web address] stions.htmlTo learn more about the COVID-19 vaccine, we invite you to visit the [place] website for a list of frequently asked questions. [email or web address] _[email or web address]-Questions.pdf [facility] Patient Portal Access Instructions: Stay connected with your healthcare team and access your personal medical information anytime with the [facility] Patient Portal. If you would like a full copy of your medical records please contact the [facility] Medical Records Department Tuesday through Tuesday between 8a.m. and 4:30p.m. Please follow the directions below to access the portal: 1.Access the email account you provided upon registration to the [facility].2.Look for an invitation email from [facility].3.Open the email and access the invitation link: Accept Invitation to [facility]4.Fill in the required azul to create your account. Sign into [email or web address] with your username and password that you created in the above steps to stay up to date. You can then view a summary of results, a summary of your visits, and the ability to download your summaries to your computer or send the information securely to a physician. Remember that your healthcare information is confidential, so carefully consider who you will allow to register on the [facility] Patient Portal for access to your information. You can also access the [facility] Patient Portal on the [employer]. Simply click on Health Records under [employer] and then click on the [employer] logo. HOW TO SAFELY DISPOSE OF PRESCRIPTION MEDICATIONS Please use one of the following methods to safely dispose of your unused medications. 1.Use a drug disposal kit: the drug disposal pouch allows you to safely discard your old and unuseddrugs. Ask your nurse to give you one when you are discharged.2.Visit a local take-back location: Many local pharmacies and police departments have programs that collect old and unwanted prescriptiondrugs. Call your local pharmacy or go to http://bit.CMGE/7S4Io9r to find one close to you.3.Make use of household items: Use cat litter or old coffee grounds to dispose medications if other options arenot available. Mix your drugs with these household products, seal them in an airtight container andthrow it into the garbage. Call [facility]: [phone] to be sure your drugs can be disposed of in this way. Some medicines may require a different approach.4.Never flush your medications down the toilet. IF YOU HAVE BEEN PRESCRIBED AN OPIOIDS FOR PAIN If you have been prescribed an opioid (such as hydrocodone, oxycodone or morphine), it is critical to understand the possible side effects and risks of opioid pain medications. Even when taken as directed, opioids can have several side effects including: Tolerance, meaning you might need to take more of a medication for the same pain relief. Nausea, vomiting and/or constipation. Sleepiness, dizziness, dry mouth, confusion, depression or itching. Physical dependence, meaning you have withdrawal symptoms when a medication is stopped ? this can develop within a few days. KNOW YOUR RESPONSIBILITIES It is important to know exactly how much and how often to take the opioid pain medications you are prescribed. Never take opioids in higher amounts or more often than prescribed. Do not combine opioids with alcohol or other drugs that cause drowsiness, such as benzodiazepines, also known as benzos,including diazepam and alprazolam, muscle relaxants or sleep aids. Never sell or share prescriptionopioids. This is illegal. Store opioids in a secure place and out of reach of others (including children, family, friends and visitors). The last page(s) of this document has been signed and retained as a CHART COPY Signatures Patient Education Materials Abdominal Pain Medication Leaflets My discharge plan and instructions have been reviewed and explained to me and IMATY AMANDA M understand my current condition and have read and understand these discharge instructions. I have received a written copy of the plan/instructions. If I have questions, I am aware that I should contact my doctor. 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 Multiplanar reformatted images are provided for review. Automated exposure control, iterative reconstruction, and/or weight based adjustment of the mA/kV was utilized to reduce the radiation dose to as low as reasonably achievable. COMPARISON: CT abdomen/pelvis 07/27/2022 HISTORY: ORDERING SYSTEM PROVIDED HISTORY: Mid abdominal pain beginning last night Reason for Exam: pain mid abdominal pain FINDINGS: Lower Chest: The included lung bases are clear. Organs: Focal fatty deposition adjacent to the falciform ligament. No hepatic mass. Mild intrahepatic ductal dilation, similar in appearance to the prior study. Surgically absent gallbladder. Unremarkable spleen, adrenal glands, and pancreas. Symmetrically enhancing kidneys. No suspicious renal mass, calculus, or hydronephrosis. GI/Bowel: Unremarkable visible esophagus, stomach, and duodenum. The small bowel and colon are normal in course and caliber. Surgically absent appendix. Pelvis: Unremarkable bladder. Status post hysterectomy. No adnexal mass. Peritoneum/Retroperitoneum: No free air or fluid. No adenopathy. Unremarkable abdominal aorta. Bones/Soft Tissues: Tiny fat containing umbilical hernia. No acute soft tissue or osseous abnormality. IMPRESSION: No acute process within the abdomen or pelvis. Unless otherwise specified, incidental findings do not require dedicated imaging and follow-up. I have personally reviewed the images of this examination and agree with the resident's findings and interpretations. Interpreted by: Donato De La Garza MD Preliminary Report By: Rita Benz Electronically signed By Donato De La Garza MD Dictated Date: 10/18/2022 6:20:04 PM Prelim Date: 10/18/2022 6:25:13 PM Sign Date: 10/18/2022 6:53:21 PM Ordering Provider: YOANA WEAVER [facility]01-30-2023 Note ORIGINAL EXAMINATION: CT OF THE ABDOMEN AND PELVIS WITH CONTRAST 10/18/2022 6:06 pm TECHNIQUE: CT of the abdomen and pelvis was performed with the administration of intravenous contrast. Multiplanar reformatted images are provided for review. Automated exposure control, iterative reconstruction, and/or weight based adjustment of the mA/kV was utilized to reduce the radiation dose to as low as reasonably achievable. COMPARISON: CT abdomen/pelvis 07/27/2022 HISTORY: ORDERING SYSTEM PROVIDED HISTORY: Mid abdominal pain beginning last night Reason for Exam: pain mid abdominal pain FINDINGS: Lower Chest: The included lung bases are clear. Organs: Focal fatty deposition adjacent to the falciform ligament. No hepatic mass. Mild intrahepatic ductal dilation, similar in appearance to the prior study. Surgically absent gallbladder. Unremarkable spleen, adrenal glands, and pancreas. Symmetrically enhancing kidneys. No suspicious renal mass, calculus, or hydronephrosis. GI/Bowel: Unremarkable visible esophagus, stomach, and duodenum. The small bowel and colon are normal in course and caliber. Surgically absent appendix. Pelvis: Unremarkable bladder. Status post hysterectomy. No adnexal mass. Peritoneum/Retroperitoneum: No free air or fluid. No adenopathy. Unremarkable abdominal aorta. Bones/Soft Tissues: Tiny fat containing umbilical hernia. No acute soft tissue or osseous abnormality. IMPRESSION: No acute process within the abdomen or pelvis. Unless otherwise specified, incidental findings do not require dedicated imaging and follow-up. I have personally reviewed the images of this examination and agree with the resident's findings and interpretations. Interpreted by: Donato De La Garza MD Preliminary Report By: Rita Benz Electronically signed By Donato De La Garza MD Dictated Date: 10/18/2022 6:20:04 PM Prelim Date: 10/18/2022 6:25:13 PM Sign Date: 10/18/2022 6:53:21 PM Ordering Provider: [facility]01-22-2023 Miscellaneous Notes* Telephone Encounter - Alaina Tomlin APRN.INVESTOR RELATIONS DIRECTOR - 10/10/2022 11:22 PM EST The following approved medication requests have been transmitted electronically. Requested Prescriptions Signed Prescriptions Disp Refills clonazePAM (KLONOPIN) 0.5 mg tablet 10 tablet 0 Sig: Take one tablet as needed for prolonged convulsive seizure or cluster or 3 or more seizures in24 hours. Do not exceed more than 1 tablet per day. 10 tablets per 30 days. Authorizing Provider: ALAINA TOMLIN APRN.CNP [facility] Miscellaneous Notes* Telephone Encounter - Alaina Tomlin APRN.CNP - 10/10/2022 10:50 PM EST The following approved medication requests have been transmitted electronically. Requested Prescriptions Signed Prescriptions Disp Refills lacosamide (VIMPAT) 100 mg tab 270 tablet 1 Si tab in am and 2 tabs in pm Authorizing Provider: ALAINA TOMLIN APRN.CNP [facility] Miscellaneous Notes* Telephone Encounter - Alaina Tomlin APRN.CNP - 09/08/2022 9:10 AM EST The following approved medication requests have been transmitted electronically. Requested Prescriptions Signed Prescriptions Disp Refills clonazePAM (KLONOPIN) 0.5 mg tablet 10 tablet 0 Sig: Take one tablet as needed for prolonged convulsive seizure or cluster or 3 or more seizures in24 hours. Do not exceed more than 1 tablet per day. 10 tablets per 30 days. Authorizing Provider: ALAINA TOMLIN APRN.CNP [facility]11[facility]22 Miscellaneous Notes* Telephone Encounter - Alaina Tomlin APRN.CNP - 07/29/2022 11:35 AM EST Noted agree with plan Alaina Tomlin APRN.CNP * Telephone Encounter - Fatimah Anderson RN - 07/28/2022 3:48 PM EST I spoke with Dorothea, stated she is having issues sleeping. She has had this issues since childhood. She is currently taking melatonin. Stated she seen sleep medicine and was told to keep a sleep log and she did not follow up after. She was informed to call sleep medicine. Fatimah Anderson RN * Telephone Encounter - Fatimah Anderson RN - 07/28/2022 3:[address] Aldrich, Please let her know again that these are not seizures there is no need to adjust aed she needs to follow up with sleep medicine Alaina Tomlin APRN.INVESTOR RELATIONS DIRECTOR Call was made to Dorothea , no answer. Message was left requesting a return call. Fatimah Roman RN * Telephone Encounter - Alley Schulte - 07/28/2022 3:07 PM EST General call : Full name of person calling: Dorothea Rutledeg Relationship to patient: self Phone # : [phone] (home) Reason for call: Patient has trouble falling asleep and staying asleep. Sometimes she will not be able to sleep for 3 days. The lack of sleep can cause agitation. She has tried Trazadone and Vistaril. Please advise. Patient of Dr. Aldrich documented [facility] Hospital Discharge instructions Patient Education 07/27/2022 14:21:05 Abdominal Pain, Unknown Cause, (Female) Unknown Causes of Abdominal Pain (Female) The exact cause of your belly (abdominal) pain is not clear. This does not mean that this is something to worry about. Everyone likes to know the exact cause of the problem. But sometimes with belly pain, there is no clear-cut cause, and this could be a good thing. The good news is that your symptoms can be treated, and you will feel better. Your condition does not seem serious now. But sometimes the signs of a serious problem may take more time to appear. For this reason, it is important for you to watch for any new symptoms, problems, or worsening of your condition. Over the next few days, the abdominal pain may come and go. Or it may be constant. Other common symptoms can include nausea and vomiting. Sometimes it can be difficult to tell if you feel nauseous. You may just feel bad and not connect that feeling to nausea. Constipation, diarrhea, and a fever maygo along with the pain. The pain may continue even if treated correctly over the following days. Depending on how things go, sometimes the cause can become clear and may need more or different treatment. Additional evaluations, medicines, or tests may also be needed. Home care Your healthcare provider may prescribe medicine for pain, symptoms, or an infection. Follow the healthcare provider's instructions for taking these medicines. General care Rest as much as you can until your next exam. No strenuous activities. Try to find positions that ease discomfort. A small pillow placed on the abdomen may help relieve pain. Something warm on your abdomen (such as a heating pad) may help, but be careful not to burn yourself. Diet Don t force yourself to eat, especially if having cramps, vomiting, or diarrhea. Water is important so you don't get dehydrated. Soup may also be good. Sports drinks may also help,especially if they are not too acidic. Don't drink sugary drinks as this can make things worse. Take liquids in small amounts. Don t guzzle them. Caffeine sometimes makes the pain and cramping worse. Don t take dairy products if you have vomiting or diarrhea. Don't eat large amounts at a time. Wait a few minutes between bites. Eat a diet low in fiber (called a low-residue diet). Foods allowed include refined breads, white rice, fruit and vegetable juices without pulp, tender meats. These foods will pass more easily throughthe intestine. Don t have whole-grain foods, whole fruits and vegetables, meats, seeds and nuts, fried or fatty foods, dairy, alcohol and spicy foods until your symptoms go away. Follow-up care Follow up with your healthcare provider, or as advised, if your pain does not begin to improve in the next 24 hours. Call 911 Call 911 if any of these occur: Trouble breathing Confusion Fainting or loss of consciousness Rapid heart rate Seizure When to seek medical advice Call your healthcare provider right away if any of these occur: Pain gets worse or moves to the right lower abdomen New or worsening vomiting or diarrhea Swelling of the abdomen Unable to pass stool for more than 3 days Fever of 100.4 F (38 C) or higher, or as directed by your healthcare provider. Blood in vomit or bowel movements (dark red or black color) Yellow color of eyes and skin (jaundice) Weakness, dizziness Chest, arm, back, neck, or jaw pain Unexpected vaginal bleeding or missed period Can't keep down liquids or water and you are getting dehydrated 5627-3861 [employer]. [address] [place] [address]. All rights reserved. This information is not intended as a substitute for professional medical care. Always follow yourhealthcare professional's instructions. 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 The following is importantdischarge information regarding your hospital visit. Diagnosis from Today's Visit Abdominal pain - cause unknown n/v What to Do Next Instructions from Your Care Team No qualifying data available. Post Acute Orders No qualifying data available. You Need to Schedule the Following Appointments Follow Up with Follow-up with your bushing and broach operator When Within 2-4 days Follow Up with CJ RIVERA When Within 2-4 days Where: [address] [place] [address] [phone] Allergies penicillin (Rash) Neurontin (Vomiting) morphine (Cramping) sulfa drug Medications Please ask your primary doctor or pharmacist before taking any other medication not listed, including over the counter drugs, herbal medications, vitamins and or supplements as they may interact withyour home medications. What How Much When Instructions Last Dose Unchanged acetaminophen (acetaminophen 500 mg oral tablet) 1 tab(s) by mouth Once a day as needed for as needed for pain Unchanged APAP/ butalbital/ caffeine (acetaminophen/ butalbital/ caffeine 325 mg-50 mg-40 mg oral capsule) 1-2 caps by mouth Every 4 hours as needed for as needed for headache Duration: 7 Days Unchanged ARIPiprazole (Abilify 10 mg oral tablet) 1 tab(s) by mouth Once a day Duration: 30 Days Unchanged ascorbic acid (Vitamin C 1000 mg oral tablet) 1 tab(s) by mouth Once a day Unchanged buPROPion (buPROPion 150 mg/ 12 hours (SR) oral tablet, extended release) 1 tab(s) by mouth Two (2) times a day Unchanged busPIRone (busPIRone 10 mg oral tablet) 1 tab(s) by mouth Three (3) times a day Duration: 30 Days Unchanged cholecalciferol (cholecalciferol 1250 mcg (50,000 intl units) oral capsule) 1 cap by mouth Every Tuesday Unchanged clonazePAM (clonazePAM 0.5 mg oral tablet) 1 tab(s) by mouth Once a day as needed for Seizures Unchanged cloNIDine (cloNIDine 0.2 mg oral tablet) 1 tab(s) by mouth Two (2) times a day Unchanged furosemide (furosemide 40 mg oral tablet) 1 tab(s) by mouth Once a day Unchanged lacosamide (lacosamide 100 mg oral tablet) 1 tab(s) by mouth Once a day (in the morning) Unchanged lacosamide (lacosamide 100 mg oral tablet) 2 tab(s) by mouth Once a day (in the evening) Unchanged lactulose (lactulose 10 g/ 15 mL oral syrup) 15 Milliliter by mouth Once a day Unchanged linaclotide (Linzess 290 mcg oral capsule) 1 cap by mouth Once a day Unchanged magnesium oxide (magnesium oxide 400 mg oral tablet) 1 tab(s) by mouth Once a day Unchanged methenamine (methenamine hippurate 1 g oral tablet) 1 tab(s) by mouth Once a day Duration: 90 Days Unchanged metoprolol (metoprolol tartrate 25 mg oral tablet) 1 tab(s) by mouth Two (2) times a day Unchanged omeprazole (omeprazole 40 mg oral delayed release capsule) 1 cap by mouth Two (2) times a day Duration: 30 Days Unchanged potassium chloride (potassium chloride 20 mEq oral tablet, extended release) 1 tab(s) by mouth Three (3) times a day Unchanged rivaroxaban (Xarelto 10 mg oral tablet) 1 tab(s) by mouth Once a day Unchanged rOPINIRole (rOPINIRole 0.25 mg oral tablet) 1 tab(s) by mouth Two (2) times a day Duration: 30 Days Unchanged valACYclovir (valACYclovir 500 mg oral tablet) 1 tab(s) by mouth Once a day Unchanged venlafaxine (venlafaxine 150 mg oral capsule, extended release) 1 cap by mouth Once a day Please take this list to your next doctor s visit. Bring all medications you take, including over the counter medications, herbals and other supplements with you to your doctor s visit. Patients and families are reminded to discard old lists and to update any records with all medication providers or retail pharmacies. Education Materials Unknown Causes of Abdominal Pain (Female) The exact cause of your belly (abdominal) pain is not clear. This does not mean that this is something to worry about. Everyone likes to know the exact cause of the problem. But sometimes with belly pain, there is no clear-cut cause, and this could be a good thing. The good news is that your symptoms can be treated, and you will feel better. Your condition does not seem serious now. But sometimes the signs of a serious problem may take more time to appear. For this reason, it is important for you to watch for any new symptoms, problems, or worsening of your condition. Over the next few days, the abdominal pain may come and go. Or it may be constant. Other common symptoms can include nausea and vomiting. Sometimes it can be difficult to tell if you feel nauseous. You may just feel bad and not connect that feeling to nausea. Constipation, diarrhea, and a fever maygo along with the pain. The pain may continue even if treated correctly over the following days. Depending on how things go, sometimes the cause can become clear and may need more or different treatment. Additional evaluations, medicines, or tests may also be needed. Home care Your healthcare provider may prescribe medicine for pain, symptoms, or an infection. Follow the healthcare provider's instructions for taking these medicines. General care Rest as much as you can until your next exam. No strenuous activities. Try to find positions that ease discomfort. A small pillow placed on the abdomen may help relieve pain. Something warm on your abdomen (such as a heating pad) may help, but be careful not to burn yourself. Diet Don t force yourself to eat, especially if having cramps, vomiting, or diarrhea. Water is important so you don't get dehydrated. Soup may also be good. Sports drinks may also help,especially if they are not too acidic. Don't drink sugary drinks as this can make things worse. Take liquids in small amounts. Don t guzzle them. Caffeine sometimes makes the pain and cramping worse. Don t take dairy products if you have vomiting or diarrhea. Don't eat large amounts at a time. Wait a few minutes between bites. Eat a diet low in fiber (called a low-residue diet). Foods allowed include refined breads, white rice, fruit and vegetable juices without pulp, tender meats. These foods will pass more easily throughthe intestine. Don t have whole-grain foods, whole fruits and vegetables, meats, seeds and nuts, fried or fatty foods, dairy, alcohol and spicy foods until your symptoms go away. Follow-up care Follow up with your healthcare provider, or as advised, if your pain does not begin to improve in the next 24 hours. Call 911 Call 911 if any of these occur: Trouble breathing Confusion Fainting or loss of consciousness Rapid heart rate Seizure When to seek medical advice Call your healthcare provider right away if any of these occur: Pain gets worse or moves to the right lower abdomen New or worsening vomiting or diarrhea Swelling of the abdomen Unable to pass stool for more than 3 days Fever of 100.4 F (38 C) or higher, or as directed by your healthcare provider. Blood in vomit or bowel movements (dark red or black color) Yellow color of eyes and skin (jaundice) Weakness, dizziness Chest, arm, back, neck, or jaw pain Unexpected vaginal bleeding or missed period Can't keep down liquids or water and you are getting dehydrated [id number] [employer]. [address] [place] [address], [place] [address]. All rights reserved. This information is not intended as a substitute for professional medical care. Always follow yourhealthcare professional's instructions. Additional Information VACCINATE! IT SAVES LIVES! Members of the community who have not yet received the COVID-19 vaccine and would like to receive it can visit one of [facility] vaccine clinics. There are many vaccine clinic locations within the [facility]. For locations and available times, please visit [email or web address]. It is important to note that some COVID mobile vaccine clinics are held outdoors and may be canceled in rainy orstormy conditions. To learn more about pediatric vaccinations (ages 5-11), we invite you to visit the [facility] webpage. [email or web address] learn more about the COVID-19 vaccine, we invite you to visit the [facility] website for a list of frequently asked questions. [email or web address] [facility] Patient Portal Access Instructions: Stay connected with your healthcare team and access your personal medical information anytime with the [facility] Patient Portal. If you would like a full copy of your medical records please contact the [facility] Medical Records Department Tuesday through Tuesday between 8a.m. and 4:30p.m. Please follow the directions below to access the portal: 1.Access the email account you provided upon registration to the hospital.2.Look for an invitation email from [facility].3.Open the email and access the invitation link: Accept Invitation to [facility]4.Fill in the required azul to create your account. Sign into [email or web address] with your username and password that you created in the above steps to stay up to date. You can then view a summary of results, a summary of your visits, and the ability to download your summaries to your computer or send the information securely to a physician. Remember that your healthcare information is confidential, so carefully consider who you will allow to register on the [facility] Patient Portal for access to your information. You can also access the [facility] Patient Portal on the triptap leslie. Simply click on Health Records under [employer] and then click on the [facility] logo. HOW TO SAFELY DISPOSE OF PRESCRIPTION MEDICATIONS Please use one of the following methods to safely dispose of your unused medications. 1.Use a drug disposal kit: the drug disposal pouch allows you to safely discard your old and unuseddrugs. Ask your nurse to give you one when you are discharged.2.Visit a local take-back location: Many local pharmacies and police departments have programs that collect old and unwanted prescriptiondrugs. Call your local pharmacy or go to http://[employer].CMGE/4B5Zo0i to find one close to you.3.Make use of household items: Use cat litter or old coffee grounds to dispose medications if other options arenot available. Mix your drugs with these household products, seal them in an airtight container andthrow it into the garbage. Call [facility]: [phone] to be sure your drugs can be disposed of in this way. Some medicines may require a different approach.4.Never flush your medications down the toilet. IF YOU HAVE BEEN PRESCRIBED AN OPIOIDS FOR PAIN If you have been prescribed an opioid (such as hydrocodone, oxycodone or morphine), it is critical to understand the possible side effects and risks of opioid pain medications. Even when taken as directed, opioids can have several side effects including: Tolerance, meaning you might need to take more of a medication for the same pain relief. Nausea, vomiting and/or constipation. Sleepiness, dizziness, dry mouth, confusion, depression or itching. Physical dependence, meaning you have withdrawal symptoms when a medication is stopped ? this can develop within a few days. KNOW YOUR RESPONSIBILITIES It is important to know exactly how much and how often to take the opioid pain medications you are prescribed. Never take opioids in higher amounts or more often than prescribed. Do not combine opioids with alcohol or other drugs that cause drowsiness, such as benzodiazepines, also known as benzos,including diazepam and alprazolam, muscle relaxants or sleep aids. Never sell or share prescriptionopioids. This is illegal. Store opioids in a secure place and out of reach of others (including children, family, friends and visitors). The last page(s) of this document has been signed and retained as a CHART COPY Signatures Patient Education Materials Abdominal Pain, Unknown Cause, (Female) Medication Leaflets My discharge plan and instructions have been reviewed and explained to me and MATY Kirkland AMANDA M understand my current condition and have read and understand these discharge instructions. I have received a written copy of the plan/instructions. If I have questions, I am aware that I should contact my doctor. 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 Multiplanar reformatted images are provided for review. Automated exposure control, iterative reconstruction, and/or weight based adjustment of the mA/kV was utilized to reduce the radiation dose to as low as reasonably achievable. COMPARISON: June 17, 2022 HISTORY: ORDERING SYSTEM PROVIDED HISTORY: Reason for Exam: RECTAL BLEEDING 1 DAY. ABD CRAMPING AND MID ABD PAIN abdominal pain FINDINGS: No acute osseous abnormality. Calcified granuloma right lung base. Spleen, adrenal glands and pancreas are normal. No kidney abnormality seen. Metallic artifact is present within the retroperitoneum from previous procedure. This may be an IVC filter. Finding is stable. No adenopathy, free air or free fluid seen. No GI tract abnormality is visible. No additional contributory finding. IMPRESSION: No acute abnormality seen. Interpreted by: Andreea Vasquez MD Preliminary Report By: Andreea Vasquez MD Electronically signed By Andreea Vasquez MD Dictated Date: 07/27/2022 12:32:02 PM Prelim Date: 07/27/2022 12:34:57 PM Sign Date: 07/27/2022 12:34:57 PM Ordering Provider: ANGLE PUENTES [facility] [id number] Note ORIGINAL EXAMINATION: CT OF THE ABDOMEN AND PELVIS WITH CONTRAST 07/27/2022 12:31 pm TECHNIQUE: CT of the abdomen and pelvis was performed with the administration of intravenous contrast. Multiplanar reformatted images are provided for review. Automated exposure control, iterative reconstruction, and/or weight based adjustment of the mA/kV was utilized to reduce the radiation dose to as low as reasonably achievable. COMPARISON: June 17, 2022 HISTORY: ORDERING SYSTEM PROVIDED HISTORY: Reason for Exam: RECTAL BLEEDING 1 DAY. ABD CRAMPING AND MID ABD PAIN abdominal pain FINDINGS: No acute osseous abnormality. Calcified granuloma right lung base. Spleen, adrenal glands and pancreas are normal. No kidney abnormality seen. Metallic artifact is present within the retroperitoneum from previous procedure. This may be an IVC filter. Finding is stable. No adenopathy, free air or free fluid seen. No GI tract abnormality is visible. No additional contributory finding. IMPRESSION: No acute abnormality seen. Interpreted by: Andreea Vasquez MD Preliminary Report By: Andreea Vasquez MD Electronically signed By Andreea Vasquez MD Dictated Date: 07/27/2022 12:32:02 PM Prelim Date: 07/27/2022 12:34:57 PM Sign Date: 07/27/2022 12:34:57 PM Ordering Provider: [facility]10-04[facility]2022 Hospital Discharge instructions Patient Education 06/22/2022 10:23:01 Factor V Leiden Test Factor V Leiden Test Why am I having this test? The factor V Leiden test is done to determine whether you have a gene mutation that increases your risk of developing blood clots. This gene mutation is called factor V Leiden thrombophilia. It is passed down through families (inherited). Your health care provider may perform this test if you: Experienced an unexplained clotting event. Have a family history of blood clots. Had a blood clot before the age of 30. Had a blood clot during or while taking control pills. Had a blood clot in an unusual vein location. Had a blood clot in an artery. What is being tested? This test checks for the factor V Leiden genetic mutation through DNA analysis of the factor V gene. Factor V is an important protein involved in normal blood clotting. The abnormal form of factor V (factor V Leiden) can increase the risk of blood clotting. What kind of sample is taken? A blood sample is required for this test. It is usually collected by inserting a needle into a blood vessel. Tell a health care provider about: All medicines you are taking, including vitamins, herbs, eye drops, creams, and qoxw-prl-kejdsrp medicines. Any medical conditions you have. Any blood disorders you have. How are the results reported? Your test results will be reported as either positive or negative for the factor V Leiden genetic mutation. If the results are positive, more specific information about the genetic mutation may also be included. What do the results mean? A negative test result means that no genetic defect was found. A positive test result indicates the presence of the factor V Leiden genetic mutation. People receive a factor V gene from each of their parents, so the mutation may be either of the following: Heterozygous. This means that only one of the two factor V genes has a mutation. A person with thisresult has a slightly increased risk for clotting. Homozygous. This means that both of the factor V genes have a mutation. A person with this result has a much higher risk of clotting. Talk with your health care provider about what your results mean. Questions to ask your health care provider Ask your health care provider, or the department that is doing the test: When will my results be ready? How will I get my results? What are my treatment options? What other tests do I need? What are my next steps? Summary The factor V Leiden test is done to determine whether you have an inherited gene mutation that increases your risk of developing blood clots. A positive test result indicates the presence of the factor V Leiden genetic mutation. Talk with your health care provider about what your results may mean. This information is not intended to replace advice given to you by your health care provider. Make sure you discuss any questions you have with your health care provider. Document Released: 10/08/2005 Document Revised: 04/26/2018 Document Reviewed: 04/26/2018 [employer] Patient Education 2020 ibeatyou. Follow Up Care 06/17/2022 09:41:20 With:KAYE BARTON MD Address: [address] [facility], [place] [address]- When:Within 1 Day(s) Comments:Please call the office to schedule a follow up appointment With:CJ RIVERA APRN-INVESTOR RELATIONS DIRECTOR Address: [address] [facility] [place] [address]- When:1-2 days Comments:Please call the office to schedule a follow up appointment [facility] 10-04-2022 Note Discharge Instructions Thank you for allowing [facility] to assist you with your healthcare needs. The following is importantdischarge information regarding your hospital visit. Your Care Team CJ RIVERA Your Diagnosis Abdominal pain Rectal bleed What to do next Instructions From Your Doctor Please continue take your medication as prescribed. Please follow-up with your primary care physician as well as gastroenterology as discussed. Please get your blood work done. If your symptoms worsen, call your PCP or go to nearest ER. Scheduled Follow-Up Appointments Appointment Type When With Where Contact [facility] 06/29/2022 01:30 PM EDT CJ RIVERA [facility] Follow Up Appointments Follow Up with KAYE BARTON MD When In 1 day Why: Please call the office to schedule a follow up appointment Where: [address] [facility] [address] [facility], [place] [address]- Follow Up with CJ RIVERA When Within 1-2 days Why: Please call the office to schedule a follow up appointment Where: [address] [facility] [place] [address]- The Following Activity and Diet Have Been Ordered for You Discharge Activity - Ordered -- Activity As Tolerated, 06/22/22 9:56:00 EDT Discharge Diet - Ordered -- Type of Diet: Regular, 06/22/22 9:56:00 EDT The Following Equipment Has Been Ordered for You No qualifying data available. The Following Treatments Have Been Ordered for You Discharge Labs Discharge Outpatient Labwork - Ordered -- Hepatic function panel, Transaminitis, follow-up within: 3-5 days, Results Notify to: CJ RIVERA, 06/22/22 9:56:00 EDT Discharge Radiology No qualifying data available. Other Therapies No qualifying data available. Post Acute Orders No qualifying data available. Someone Will Contact You Regarding These Home Health Referrals No home referrals have been ordered for you. No one will call you. Allergies penicillin (Rash) Neurontin (Vomiting) morphine (Cramping) sulfa drug Medications Please ask your primary doctor or pharmacist before taking any other medication not listed, including over the counter drugs, herbal medications, vitamins and or supplements as they may interact withyour home medications. What How Much When Instructions Last Dose New polyethylene glycol 3350 (MiraLax oral powder for reconstitution) 17 gram(s) by mouth Once a day Duration: 7 Days Unchanged acetaminophen (acetaminophen 500 mg oral tablet) 1 tab(s) by mouth Once a day as needed for as needed for pain Unchanged APAP/ butalbital/ caffeine (acetaminophen/ butalbital/ caffeine 325 mg-50 mg-40 mg oral capsule) 1-2 caps by mouth Every 4 hours as needed for as needed for headache Unchanged ascorbic acid (Vitamin C 1000 mg oral tablet) 1 tab(s) by mouth Once a day Unchanged buPROPion (buPROPion 150 mg/ 12 hours (SR) oral tablet, extended release) 1 tab(s) by mouth Two (2) times a day Unchanged busPIRone (busPIRone 10 mg oral tablet) 1 tab(s) by mouth Three (3) times a day Unchanged cholecalciferol (cholecalciferol 1250 mcg (50,000 intl units) oral capsule) 1 cap by mouth Every Tuesday Unchanged clonazePAM (clonazePAM 0.5 mg oral tablet) 1 tab(s) by mouth Once a day as needed for Anxiety Unchanged clonazePAM (clonazePAM 0.5 mg oral tablet) 1 tab(s) by mouth Once a day as needed for Seizures Unchanged cloNIDine (cloNIDine 0.2 mg oral tablet) 1 tab(s) by mouth Two (2) times a day Unchanged famotidine (Pepcid 40 mg oral tablet) 1 tab(s) by mouth Once a day Unchanged furosemide (furosemide 40 mg oral tablet) 1 tab(s) by mouth Once a day Unchanged lacosamide (lacosamide 100 mg oral tablet) 1 tab(s) by mouth Once a day (in the morning) Unchanged lacosamide (lacosamide 100 mg oral tablet) 2 tab(s) by mouth Once a day (in the evening) Unchanged lactulose (lactulose 10 g/ 15 mL oral syrup) 15 Milliliter by mouth Once a day Unchanged linaclotide (Linzess 290 mcg oral capsule) 1 cap by mouth Once a day Unchanged magnesium oxide (magnesium oxide 400 mg oral tablet) 1 tab(s) by mouth Once a day Unchanged methenamine (methenamine hippurate 1 g oral tablet) 1 tab(s) by mouth Once a day Unchanged metoprolol (metoprolol tartrate 25 mg oral tablet) 1 tab(s) by mouth Two (2) times a day Unchanged potassium chloride (potassium chloride 20 mEq oral tablet, extended release) 1 tab(s) by mouth Three (3) times a day Unchanged rivaroxaban (Xarelto 10 mg oral tablet) 1 tab(s) by mouth Once a day Unchanged valACYclovir (valACYclovir 500 mg oral tablet) 1 tab(s) by mouth Once a day Unchanged venlafaxine (venlafaxine 150 mg oral capsule, extended release) 1 cap by mouth Once a day What How Much When Comments Stop Taking ibuprofen (ibuprofen 200 mg oral tablet) 2 tab(s) by mouth Once a day as needed for as needed for pain Please take this list to your next doctor s visit. Bring all medications you take, including over the counter medications, herbals and other supplements with you to your doctor s visit. Patients and families are reminded to discard old lists and to update any records with all medication providers or retail pharmacies. Education Materials Factor V Leiden Test Why am I having this test? The factor V Leiden test is done to determine whether you have a gene mutation that increases your risk of developing blood clots. This gene mutation is called factor V Leiden thrombophilia. It is passed down through families (inherited). Your health care provider may perform this test if you: Experienced an unexplained clotting event. Have a family history of blood clots. Had a blood clot before the age of 30. Had a blood clot during or while taking control pills. Had a blood clot in an unusual vein location. Had a blood clot in an artery. What is being tested? This test checks for the factor V Leiden genetic mutation through DNA analysis of the factor V gene. Factor V is an important protein involved in normal blood clotting. The abnormal form of factor V (factor V Leiden) can increase the risk of blood clotting. What kind of sample is taken? A blood sample is required for this test. It is usually collected by inserting a needle into a blood vessel. Tell a health care provider about: All medicines you are taking, including vitamins, herbs, eye drops, creams, and mtat-cxj-qxvujor medicines. Any medical conditions you have. Any blood disorders you have. How are the results reported? Your test results will be reported as either positive or negative for the factor V Leiden genetic mutation. If the results are positive, more specific information about the genetic mutation may also be included. What do the results mean? A negative test result means that no genetic defect was found. A positive test result indicates the presence of the factor V Leiden genetic mutation. People receive a factor V gene from each of their parents, so the mutation may be either of the following: Heterozygous. This means that only one of the two factor V genes has a mutation. A person with thisresult has a slightly increased risk for clotting. Homozygous. This means that both of the factor V genes have a mutation. A person with this result has a much higher risk of clotting. Talk with your health care provider about what your results mean. Questions to ask your health care provider Ask your health care provider, or the department that is doing the test: When will my results be ready? How will I get my results? What are my treatment options? What other tests do I need? What are my next steps? Summary The factor V Leiden test is done to determine whether you have an inherited gene mutation that increases your risk of developing blood clots. A positive test result indicates the presence of the factor V Leiden genetic mutation. Talk with your health care provider about what your results may mean. This information is not intended to replace advice given to you by your health care provider. Make sure you discuss any questions you have with your health care provider. Document Released: 10/08/2005 Document Revised: 04/26/2018 Document Reviewed: 04/26/2018 [employer] Patient Education 2020 [employer] Additional Information VACCINATE! IT SAVES LIVES! Members of the community who have not yet received the COVID-19 vaccine and would like to receive it can visit one of [facility] vaccine clinics. There are many vaccine clinic locations within the [facility]. For locations and available times, please visit [email or web address] It is important to note that some COVID mobile vaccine clinics are held outdoors and may be canceled in rainy or stormy conditions. To learn more about pediatric vaccinations (ages 5-11), we invite you to visit the [facility] webpage. [email or web address] learn more about the COVID-19 vaccine, we invite you to visit the [place] website for a list of frequently asked questions. [email or web address] [facility] Patient Portal Access Instructions: Stay connected with your healthcare team and access your personal medical information anytime with the [facility] Patient Portal.If you would like a full copy of your medical records, please contact the [facility] Medical Records Department, Tuesday through Tuesday between 8a.m. and 4:30p.m. Please follow the directions below to access the portal: 1.Access the email account you provided upon registration to the [facility].2.Look for an invitation email from [facility].3.Open the email and access the invitation link: Accept Invitation to [facility]4.Fill in the required azul to create your account. Sign into [email or web address] with your username and password that you created in the above steps to stay up to date. You can then view a summary of results, a summary of your visits, and the ability to download your summaries to your computer or send the information securely to a physician. Remember that your healthcare information is confidential, so carefully consider who you will allow to register on the [facility] Patient Portal for access to your information. You can also access the [facility] Patient Portal on the [employer]. Simply click on Health Records under [employer] and then click on the [employer] logo. HOW TO SAFELY DISPOSE OF PRESCRIPTION MEDICATIONS Please use one of the following methods to safely dispose of your unused medications. 1.Use a drug disposal kit: the drug disposal pouch allows you to safely discard your old and unuseddrugs. Ask your nurse to give you one when you are discharged.2.Visit a local take-back location: Many local pharmacies and police departments have programs that collect old and unwanted prescriptiondrugs. Call your local pharmacy or go to http://bit.CMGE/4Y0Fa4x to find one close to you.3.Make use of household items: Use cat litter or old coffee grounds to dispose medications if other options arenot available. Mix your drugs with these household products, seal them in an airtight container andthrow it into the garbage. Call [facility]: [phone] to be sure your drugs can be disposed of in this way. Some medicines may require a different approach.4.Never flush your medications down the toilet. IF YOU HAVE BEEN PRESCRIBED AN OPIOID FOR PAIN If you have been prescribed an opioid (such as hydrocodone, oxycodone or morphine), it is critical to understand the possible side effects and risks of opioid pain medications. Even when taken as directed, opioids can have several side effects including: Tolerance, meaning you might need to take more of a medication for the same pain relief. Nausea, vomiting and/or constipation. Sleepiness, dizziness, dry mouth, confusion, depression or itching. Physical dependence, meaning you have withdrawal symptoms when a medication is stopped, can develop within a few days. KNOW YOUR RESPONSIBILITIES It is important to know exactly how much and how often to take the opioid pain medications you are prescribed. Never take opioids in higher amounts or more often than prescribed. Do not combine opioids with alcohol or other drugs that cause drowsiness, such as benzodiazepines, also known as benzos, including diazepam and alprazolam, muscle relaxants or sleep aids. Never sell or share prescription opioids. This is illegal. Store opioids in a secure place and out of reach of others (including children, family, friends and visitors). The last page of this document has been signed and retained as a CHART COPY. Signatures Patient Education Materials Factor V Leiden Test Medication Leaflets My discharge plan and instructions have been reviewed and explained to me and IMATY AMANDA M understand my current condition and have read and understand these discharge instructions. I have received a written copy of the plan/instructions. If I have questions, I am aware that I should contact my doctor. 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/Time: Relationship to Patient: Witness Name/Signature: Date[facility]Time[id number] Discharge summary Date of Service 06/22/2022 Discharge Diagnosis Left lower quadrant abdominal pain Ileus Rectal bleed Transaminitis History of GI bleed History of factor V Leiden syndrome on Xarelto History of CVA History of DVT/PE Hospital Course Patient is 46-year-old female with past medical history significant for seizure disorder, CVA, DVT/PE, factor V Leiden mutation on Xarelto, history of GI bleed and chronic constipation on Linzess [facility] with chief complaint of rectal bleeding and left lower quadrant abdominal pain. Patient was afebrile and hemodynamically stable on presentation. Hemoglobin was 13. UA was unremarkable. LFTs were mildly elevated. Lipase was unremarkable. CT scan abdomen/pelvis was consistent with mild duodenitis and concerning for ileus. Patient was admitted for further evaluation and management. Her home dose of Xarelto was held and gastroenterology was consulted. Patient was evaluated by GI and and recommended conservative management with plan for EGD and colonoscopy outpatient. Patient's hemoglobin remained stable above 13 and she did not have any signs of active GI bleed. After discussing with GI, her Xarelto was resumed. Patient was receiving IV fluids and appropriate pain management. Repeat x-ray was done on 07/10 showed resolution of her ileus and no bowel obstr uction. Patient's pain continued to slowly improve. Patient was able to pass flatus and was given bowel regimen. She had two small bowel movements during her stay and no episode of rectal bleed. Regarding her transaminitis during hospitalization work up was done. Acute hepatitis panel was negative.Ultrasound abdomen showed mild prominent extrahepatic bile ducts within normal limits status postcholecystectomy and normal size and echogenicity of liver. Mitochondrial and smooth muscle antibody were also negative. LFT's were slowly downtrending. She remained afebrile and hemodynamically stable. She was tolerating her diet adequately without any nausea/vomiting. She will be discharged home and to follow-up with her primary care physician as well as gastroenterology for further evaluation and management. Plan was discussed with patient in detail. Allergies penicillin (Rash) Neurontin (Vomiting) morphine (Cramping) sulfa drug Consults Consult to Physician - Ordered -- 06/17/22 16:03:00 EDT, MD MILO HOPSON MD, Routine, GI bleed Imaging Results and Diagnostics XR Abdomen 2 Views w/ Decub/Erect Result Date: June 20, 2022 Verified By: THANG CASTELLON MD CLINICAL STATEMENT: IMPRESSION: Nonobstructive bowel gas pattern with significantly improved/resolvedair-fluid levels. I have personally reviewed the images of this examination and agree with theresident's findings and interpretation. US Abdomen Limited Result Date: June 20, 2022 Verified By: KWAME MAO MD CLINICAL STATEMENT: IMPRESSION: Mildly prominent extrahepatic bile ducts are within normal limits status postcholecystectomy. Normal size and echogenicity of liver. No acute findings. RECOMMENDATIONS:Unavailable XR Abdomen 2 Views w/ Decub/Erect Result Date: June 19, 2022 Verified By: THANG CASTELLON MD CLINICAL STATEMENT: IMPRESSION: Numerous air-fluid levels in the small bowel, possibly an ileus. There areno air distended bowel segments No free intraperitoneal air CT abdomen/pelvis - IMPRESSION: Minimal haziness within the fat surrounding the proximal duodenum and pancreatic head with adjacent lymphadenopathy. These findings could reflect mild duodenitis versus mild acute interstitial edematous pancreatitis. Recommend correlation with lipase level. Air-fluid levels in mildly distended but not dilated jejunum. This may represent ileus or residual do distension from diet late it loops that were seen on 05/24/2022. Other chronic and incidental findings as described above. Physical Exam Vitals and Measurements T: 36.9 C (Oral) TMIN: 36.8 C (Oral) TMAX: 36.9 C (Oral) HR: 66(Apical) RR: 18 BP: 112/75 SpO2: 95% Weight Dosing Weight: 98 kg (06/17/22) Dosing Weight: 98 kg (06/17/22) General: Patient is not in acute distress Neck: Supple, No JVD HEENT: Normocephalic, atraumatic, Cardiac: Regular rate and rhythm, S1 and S2 present, no murmurs, rubs, or gallops appreciated Lungs: Clear to auscultation bilaterally, no wheezes, rhonchi, or rales appreciated Abdomen: Bowel sounds audible, abdomen is soft, nontender, non-distended, no rigidity or rebound tenderness Musculoskeletal: Strength intact bilaterally in upper and lower extremities, preserved range of motion Extremities: No clubbing or cyanosis, pitting edema Skin: Warm, well perfused, no bruises Neurological: Alert and orientated x3, No gross focal neurological deficits Code Status Code Status - Ordered -- 06/17/22 13:26:00 EDT, Full Code, Constant Order Admission Date 06/17/2022 Discharge Date 06/22/2022 Patient Instructions Please continue take your medication as prescribed. Please follow-up with your primary care physician as well as gastroenterology as discussed. Please get your blood work done. If your symptoms worsen, call your PCP or go to nearest ER. Medications New Prescription polyethylene glycol 3350 (MiraLax oral powder for reconstitution)17 gram(s) by mouth once a day for7 Days. Unchanged acetaminophen (acetaminophen 500 mg oral tablet)1 tab(s) by mouth once a day as needed as needed for pain. APAP/butalbital/caffeine (acetaminophen/butalbital/caffeine 325 mg-50 mg-40 mg oral capsule)1-2 caps by mouth every 4 hours as needed as needed for headache. ascorbic acid (Vitamin C 1000 mg oral tablet)1 tab(s) by mouth once a day. buPROPion (buPROPion 150 mg/12 hours (SR) oral tablet, extended release)1 tab(s) by mouth two (2) times a day. busPIRone (busPIRone 10 mg oral tablet)1 tab(s) by mouth three (3) times a day. cholecalciferol (cholecalciferol 1250 mcg (50,000 intl units) oral capsule)1 cap by mouth every Tuesday. clonazePAM (clonazePAM 0.5 mg oral tablet)1 tab(s) by mouth once a day as needed Anxiety. clonazePAM (clonazePAM 0.5 mg oral tablet)1 tab(s) by mouth once a day as needed Seizures. cloNIDine (cloNIDine 0.2 mg oral tablet)1 tab(s) by mouth two (2) times a day. famotidine (Pepcid 40 mg oral tablet)1 tab(s) by mouth once a day. furosemide (furosemide 40 mg oral tablet)1 tab(s) by mouth once a day. lacosamide (lacosamide 100 mg oral tablet)1 tab(s) by mouth once a day (in the morning). lacosamide (lacosamide 100 mg oral tablet)2 tab(s) by mouth once a day (in the evening). lactulose (lactulose 10 g/15 mL oral syrup)15 Milliliter by mouth once a day. linaclotide (Linzess 290 mcg oral capsule)1 cap by mouth once a day. magnesium oxide (magnesium oxide 400 mg oral tablet)1 tab(s) by mouth once a day. methenamine (methenamine hippurate 1 g oral tablet)1 tab(s) by mouth once a day. metoprolol (metoprolol tartrate 25 mg oral tablet)1 tab(s) by mouth two (2) times a day. potassium chloride (potassium chloride 20 mEq oral tablet, extended release)1 tab(s) by mouth three(3) times a day. rivaroxaban (Xarelto 10 mg oral tablet)1 tab(s) by mouth once a day. valACYclovir (valACYclovir 500 mg oral tablet)1 tab(s) by mouth once a day. venlafaxine (venlafaxine 150 mg oral capsule, extended release)1 cap by mouth once a day. Discontinued ibuprofen (ibuprofen 200 mg oral tablet)2 tab(s) by mouth once a day as needed as needed for pain. Follow Up Follow Up with KAYE BARTON MD When In 1 day Where: [id number] [facility], [place] [address]- [phone] Follow Up with CJ RIVERA When Within 1-2 days Why: Please call the office to schedule a follow up appointment Where: [address] [place] [address]- Follow Up Appointments No qualifying data available. Follow Up Labs/Studies Discharge Labs Discharge Outpatient Labwork - Ordered -- Hepatic function panel, Transaminitis, follow-up within: 3-5 days, Results Notify to: CJ RIVERA, 06/22/22 9:56:00 EDT Discharge Studies No Follow-up Studies Discharge Diet Discharge Diet - Ordered -- Type of Diet: Regular, 06/22/22 9:56:00 EDT Discharge Activity Discharge Activity - Ordered -- Activity As Tolerated, 06/22/22 9:56:00 EDT Condition on Discharge Fair Discharge Disposition Home Time Spent >30 minutes with >50% of the time spent counseling patient and/or coordinating care. Discussed plan of care with patient and nursing. Digitally Signed by KEHINDE NUÑEZ MD on 06/22/2022 09:40 PM [id number] Note Date of Service 06/21/2022 Chief Complaint Left lower quadrant pain Subjective Patient is 46-year-old female with past medical history significant for seizure disorder, CVA, DVT/PE, factor V Leiden syndrome on Xarelto, GI bleed in 2017 who presents due to rectal bleed and left lower quadrant pain. Patient's imaging concerning for duodenitis and possible ileus. Patient was seen by gastroenterology during hospitalization who indicated patient symptoms are likely secondary to colitis. No concern for diverticular bleed. Patient was seen examined today morning at bedside. Patient states that overall she seems to be improving however continues to have significant left lower quadrant pain associated with nausea. She had 2 small bowel movements 2 days ago, denies any bowel movement over last 24 hours. No episode of GIbleed or bleeding. Reported. She did not have any episode of vomiting this morning but was feeling nauseous. She stated that she takes Linzess at home that is being held. She otherwise denies any fever, chills, diarrhea, chest pain, shortness of breath, palpitations. Objective Vitals and Measurements T: 36.8 C (Oral) TMIN: 36.5 C (Oral) TMAX: 37.1 C (Oral) HR: 64(Monitored) RR: 18 BP: 108/72 SpO2: 94% Intake and Output 7AM Yesterday to 7AM Today Intake and Output (Last 24 hours) Intake Oral Intake 480.00 Output Stool Count 0.00 Urine Count 2.00 Total Summary Total Intake 480.00 Total Output 0.00 Fluid Balance 480.00 Physical Exam General: Patient is not in acute distress Neck: Supple, No JVD HEENT: Normocephalic, atraumatic, Cardiac: Regular rate and rhythm, S1 and S2 present, no murmurs, rubs, or gallops appreciated Lungs: Clear to auscultation bilaterally, no wheezes, rhonchi, or rales appreciated Abdomen: Bowel sounds audible x4, abdomen is soft, left lower quadrant tenderness on palpation, no rigidity/rebound tenderness, no signs of peritoneal irritation Musculoskeletal: Strength intact bilaterally in upper and lower extremities, preserved range of motion Extremities: No clubbing or cyanosis, pitting edema Skin: Warm, well perfused, no bruises Neurological: Alert and orientated x3, cranial nerves II-XII intact, No gross focal neurological deficits Weight Dosing Weight: 98 kg (06/17/22) Dosing Weight: 98 kg (06/17/22) Medications Medications (30) Active Scheduled: (17) ascorbic acid 500 mg tablet 1,000 mg 2 tab(s), Oral, qDay bupropion 150 mg / 12hr SR tablet 150 mg 1 tab(s), Oral, BID busPIRone 10 mg Tablet 10 mg 1 tab(s), Oral, TID cholecalciferol 1250 mcg capsule (Vit D3 50,000 unit(s)) 1,250 mcg 1 cap(s), Oral, Tuesday clonidine 0.2 mg Tablet 0.2 mg 1 tab(s), Oral, BID furosemide 40 mg tablet 40 mg 1 tab(s), Oral, qDay lacosamide 100 mg tablet 200 mg 2 tab(s), Oral, qPM lacosamide 100 mg tablet 100 mg 1 tab(s), Oral, qAM lactulose 20 g/30 mL UD cup 10 gram(s) 15 mL, Oral, qDay magnesium oxide 400 mg Tablet 400 mg 1 tab(s), Oral, qDay methenamine hippurate 1 gm tablet 1 gram(s) 1 tab(s), Oral, qDay metoprolol tartrate 25 mg tablet 25 mg 1 tab(s), Oral, BID Nicoderm patch REMOVAL 1 EA, Miscellaneous, q24h nicotine 21 mg/24 hr ER patch 21 mg 1 patch(es), Transdermal, q24h pantoprazole 40 mg VIAL 40 mg, IV Push, q12h valacyclovir 500 mg Tablet 500 mg 1 tab(s), Oral, qDay venlafaxine 150 mg ER capsule 150 mg 1 cap(s), Oral, qDayM Continuous: (1) NS (0.9% nacl) 1,000 mL 1,000 mL, Intravenous, 100 mL/hr PRN: (12) acetaminophen 325 mg Tablet 650 mg 2 tab(s), Oral, q4h acetaminophen 325 mg Tablet 650 mg 2 tab(s), Oral, q4h acetaminophen-OXYcodone 325 mg-5 mg Tablet 1 tab(s), Oral, q4h acetaminophen-OXYcodone 325 mg-5 mg Tablet 2 tab(s), Oral, q4h albuterol - ipratropium 2.5 mg-0.5 mg/3 mL Inhal Sherice UD 3 mL, Inhalation, q4hRT APAP/butalbital/caffeine (FioriCET) 325 mg-50 mg-40 mg Tablet 1 tab(s), Oral, q4h clonazePAM 0.5 mg tablet 0.5 mg 1 tab(s), Oral, qDay diphenhydramine 25 mg tablet 25 mg 1 tab(s), Oral, q6hr HYDROmorphone 0.5 mg/0.5 mL PF syringe 0.5 mg 0.5 mL, IV Push, q6hr melatonin 3 mg tablet 3 mg 1 tab(s), Oral, qHS ondansetron 2 mg/ 1 mL 2 mL INJ 4 mg 2 mL, IV Push, q4h ondansetron 4 mg DIS tablet 4 mg 1 tab(s), Oral, q6h Lab Results 06/21 05:33 WBC: 7.0 Hgb: 12.5 Hct: 37.9 Platelet: 306 Neutrophil %: 54.7 Glucose Level: 112 H Sodium Level: 142 Potassium Level: 4.4 BUN: 11.0 Creatinine Lvl (s): 0.72 06/20 05:06 WBC: 5.8 Hgb: 12.6 Hct: 37.5 Platelet: 305 Neutrophil %: 43.5 L Glucose Level: 112 H Sodium Level: 141 Potassium Level: 3.3 L BUN: 9.0 Creatinine Lvl (s): 0.79 Imaging Results and Diagnostics XR Abdomen 2 Views w/ Decub/Erect Result Date: June 20, 2022 Verified By: JANE VASQUEZ, THANG Stanford CLINICAL STATEMENT: IMPRESSION: Nonobstructive bowel gas pattern with significantly improved/resolvedair-fluid levels. I have personally reviewed the images of this examination and agree with theresident's findings and interpretation. US Abdomen Limited Result Date: June 20, 2022 Verified By: MAYCO VASQUEZ, KWAME Cotter CLINICAL STATEMENT: IMPRESSION: Mildly prominent extrahepatic bile ducts are within normal limits status postcholecystectomy. Normal size and echogenicity of liver. No acute findings. RECOMMENDATIONS:Unavailable XR Abdomen 2 Views w/ Decub/Erect Result Date: June 19, 2022 Verified By: JANE VASQUEZ, THANG [place] CLINICAL STATEMENT: IMPRESSION: Numerous air-fluid levels in the small bowel, possibly an ileus. There are no air distended bowel segments No free intraperitoneal air EKG No qualifying data available. Assessment/Plan Left lower quadrant abdominal pain Rectal bleed Transaminitis History of GI bleed History of factor V Leiden syndrome on Xarelto History of CVA History of DVT/PE Plan: Patient presented with 1 day history of left lower quadrant abdominal pain and rectal bleed. CT abdomen/pelvis at presentation demonstrates possible duodenitis as well as ileus. Patient seen by gastroenterology recommended outpatient endoscopic evaluation. Hemoglobin remained stable. Discussed with GI and indicated that it is okay to start anticoagulation. Repeat x-ray abdominal imaging done yesterday on 06/20 nonobstructive bowel pattern with significantimprovement in air-fluid levels. Continue current IV fluids and as needed treatment for nausea/vomiting as well as pain. Encouraged her to ambulate inside the room. Given her constipation, we will start her on MiraLAX and senna. Regarding transaminitis LFTs are downtrending. Abdominal ultrasound completed which demonstrates mild prominent extrahepatic bile ducts within normal limits status postcholecystectomy and normal sizeand echogenicity of the liver. There are no acute findings on imaging. Acute hepatitis panel negative. Mitochondrial antibody and smooth muscle antibody screen are pending. Patient to follow with gastroenterology as an outpatient. History of factor V Leiden mutation discussed with GI, resume Xarelto. Continue home medications as appropriate. Disposition: Patient continues to require IV pain medications for pain control and is experiencing nausea. We will start bowel regimen and monitor her pain overnight. Plan discussed with patient. Answered all of her questions. Digitally Signed by KEHINDE NUÑEZ MD on 06/21/2022 12:25 PM [id number] Note Chief complaint Transition plan. Transitional action points Current plan: To be determined no new orders placed today This is a 46-year-old female admitted for abdominal pain with rectal bleeding ongoing abdominal pain CT scan did show duodenitis as well as ileus doing better today at this point in time the patient is now her third hospitalization recently discharged from [facility] on 25 May patient with underlying history of DVT PE secondary to factor V Leiden syndrome on Xarelto chronically has been up moving around does not endorse any further weakness or further debility from baseline at this point follow-up over the next 24 to 48 hours to assess any further needs in terms of transitional planning no physical therapy has been ordered at this point in time he is followed closely to assess any further needs in terms of transitional planning over that timeframe moving forward Assessment/plan Left lower quadrant abdominal pain Rectal bleed History of GI bleed Factor V Readmission risk points Left lower quadrant abdominal pain Rectal bleed History of GI bleed Factor V High risk medication/Xarelto Rehospitalization's History of present illness 46-year-old female here following abdominal pain with rectal bleed. She had a CT of the abdomen didshow duodenitis as well as ileus. She has had 3 hospitalizations in the past year was living at home with her significant other on 1 level prior to admission. States she still having abdominal pain today as well as a sore throat. Notes that she has been up walking to the restroom without difficultyhowever does state that she occasionally has dizziness whenever she is up on her feet and attributes this to recently being started on Wellbutrin. Review of symptoms General: denies fever chills HEENT: denies blurry vision, headache, congestion Respiratory: denies shortness of breath or cough Cardio: denies chest pain or palpitations GI: Complaining of abdominal pain Musculoskeletal: Walking in the room and to the restroom Neuro: Occasional dizziness when up walking that she attributes to recently starting Wellbutrin Psych: denies depression or anxiety Physical exam General: no acute distress, lies in bed, obese HEENT: oral mucosa moist, eyes following movement Respiratory: On room air Musculoskeletal: Weakness present Neurological: No tremors or focal deficit Psych: Mood cooperative, alert and oriented Vitals Signs(Last 24 hrs)__Last Charted Minimum Maximum Temp37.1(JUN 20 22:56)36.5(JUN 20 14:21)37.1(JUN 20 22:56) Heart Rate64(JUN 20 16:08)62(JUN 20 10:08)64(JUN 20 16:01) Resp Rate18(JUN 20 22:56)18(JUN 20 11:02)20(JUN 20 07:17) KGZ255(JUN 20 22:56)L 87(JUN 20 14:21)118(JUN 20 16:01) DBP88(JUN 20 22:56)L 55(JUN 20 14:21)88(JUN 20 22:56) Problem List/ Past Medical History History of ESBL E. coli infection Anxiety Chronic constipation Chronic diastolic HF (heart failure) Clotting disorder DVT - Deep vein thrombosis Depression Dyslipidemia Dyspnea on exertion Dysuria Edema Elevated fasting glucose Factor V deficiency GI bleed Hallucinations Ischemic colitis Major depressive disorder, severe Migraine Mouth pain Palpitation Pancreatitis Partial seizure Psychosis Pulmonary emboli Screening for breast cancer Screening for ischemic heart disease Seizure disorder Small bowel obstruction Stroke Tobacco use Vitamin D deficiency Weight gain High blood pressure Elevated liver enzymes Preoperative clearance Bipolar 1 disorder History of MRSA infection Procedure/ Surgical History Prescription event monitorin08/31/20 Cardiovascular stress testin08/07/20 Cardiovascular stress testin08/07/20 Cardiac echo: 02/14/20 Cardiac echo: 01/20/18 Cardiac echo: 01/17/18 Abdominal hysterectomy section Appendectomy Cholecystectomy section Filter Tonsillectomy ERCP Medication List Active Medications Ordered acetaminophen: 650 mg, 2 tab(s), Oral, q4h, PRN: Pain, scale 1-3. acetaminophen: 650 mg, 2 tab(s), Oral, q4h, PRN: TEMP greater than 38.6 degrees Celsius. acetaminophen-oxyCODONE: 1 tab(s), Oral, q4h, PRN: Pain, scale 4-6. acetaminophen-oxyCODONE: 2 tab(s), Oral, q4h, PRN: Pain, scale 7-10. albuterol-ipratropium: 3 mL, Inhalation, q4hRT, PRN: Shortness of breath or wheezing. APAP/butalbital/caffeine: 1 tab(s), Oral, q4h, PRN: Headache. ascorbic acid: 1,000 mg, 2 tab(s), Oral, qDay. buPROPion: 150 mg, 1 tab(s), Oral, BID. busPIRone: 10 mg, 1 tab(s), Oral, TID. cholecalciferol: 1,250 mcg, 1 cap(s), Oral, Tuesday. clonazePAM: 0.5 mg, 1 tab(s), Oral, qDay, PRN: Anxiety. cloNIDine: 0.2 mg, 1 tab(s), Oral, BID. diphenhydrAMINE: 25 mg, 1 tab(s), Oral, q6hr, PRN: as needed for allergy symptoms. furosemide: 40 mg, 1 tab(s), Oral, qDay. HYDROmorphone: 0.5 mg, 0.5 mL, IV Push, q6hr, PRN: Pain, breakthrough. lacosamide: 200 mg, 2 tab(s), Oral, qPM. lacosamide: 100 mg, 1 tab(s), Oral, qAM. lactulose: 10 gram(s), 15 mL, Oral, qDay. magnesium oxide: 400 mg, 1 tab(s), Oral, qDay. melatonin: 3 mg, 1 tab(s), Oral, qHS, PRN: Sleep. methenamine: 1 gram(s), 1 tab(s), Oral, qDay. metoprolol: 25 mg, 1 tab(s), Oral, BID. nicotine: 21 mg, 1 patch(es), Transdermal, q24h. nicotine (Nicoderm Patch REMOVAL): 1 EA, Miscellaneous, q24h. ondansetron: 4 mg, 2 mL, IV Push, q4h, PRN: Nausea/Vomiting. ondansetron: 4 mg, 1 tab(s), Oral, q6h, PRN: Nausea/Vomiting. pantoprazole: 40 mg, IV Push, q12h. Sodium Chloride 0.9% intravenous solution 1,000 mL: 100 mL/hr, Intravenous. valACYclovir: 500 mg, 1 tab(s), Oral, qDay. venlafaxine: 150 mg, 1 cap(s), Oral, qDayM. Documented acetaminophen: 500 mg, 1 tab(s), Oral, qDay, PRN: as needed for pain. APAP/butalbital/caffeine: 1-2 caps, Oral, q4h, PRN: as needed for headache. ascorbic acid: 1,000 mg, 1 tab(s), Oral, qDay. buPROPion: 150 mg, 1 tab(s), Oral, BID. busPIRone: 10 mg, 1 tab(s), Oral, TID. cholecalciferol: 1,250 mcg, 1 cap(s), Oral, Tuesday. clonazePAM: 0.5 mg, 1 tab(s), Oral, qDay, PRN: Anxiety. clonazePAM: 0.5 mg, 1 tab(s), Oral, qDay, PRN: Seizures. cloNIDine: 0.2 mg, 1 tab(s), Oral, BID. famotidine: 40 mg, 1 tab(s), Oral, qDay. furosemide: 40 mg, 1 tab(s), Oral, qDay. ibuprofen: 400 mg, 2 tab(s), Oral, qDay, PRN: as needed for pain. lacosamide: 100 mg, 1 tab(s), Oral, qAM. lacosamide: 200 mg, 2 tab(s), Oral, qPM. lactulose: 10 gram(s), 15 mL, Oral, qDay. linaclotide: 290 mcg, 1 cap(s), Oral, qDay. magnesium oxide: 400 mg, 1 tab(s), Oral, qDay. methenamine: 1 gram(s), 1 tab(s), Oral, qDay. metoprolol: 25 mg, 1 tab(s), Oral, BID. potassium chloride: 20 mEq, 1 tab(s), Oral, TID. rivaroxaban: 10 mg, 1 tab(s), Oral, qDay. valACYclovir: 500 mg, 1 tab(s), Oral, qDay. venlafaxine: 150 mg, 1 cap(s), Oral, qDay. Medications Inactivated in the Last 72 Hours cloNIDine: 0.2 mg, 1 tab(s), Oral, BID. cloNIDine: 0.2 mg, 1 tab(s), Oral, BID. diphenhydrAMINE: 25 mg, 1 tab(s), Oral, Once. famotidine: 40 mg, 1 tab(s), Oral, qDay. furosemide: 40 mg, 1 tab(s), Oral, qDay. HYDROmorphone: 1 mg, 1 mL, IV Push, q4h, PRN: Pain, scale 7-10. metoprolol: 25 mg, 1 tab(s), Oral, BID. metoprolol: 25 mg, 1 tab(s), Oral, BID. nicotine (Nicoderm Patch REMOVAL): 1 EA, Miscellaneous, Once. potassium chloride: 40 mEq, 2 tab(s), Oral, Once. potassium chloride: 40 mEq, 2 tab(s), Oral, QID. venlafaxine: 150 mg, 1 cap(s), Oral, qDay. Allergies penicillin (Rash) Neurontin (Vomiting) morphine (Cramping) sulfa drug Social HX Alcohol Risk Assessment: Low Risk; Details: Use: Past. Employment/School Details: Status: Unemployed. Exercise Details: Days per week: 1-2 times/week. Home/Environment Details: Domestic Concerns: Denies. Living situation: Home/Independent. 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 Lives In: 1st floor bedroom, 1st floor bathroom, 2 steps to enter home . Current Home Treatments every Tuesday INR checks . Professional Skilled Services or Special Community ResourcesNone. Financial concerns: No. Marital Status: Unmarried. Nutrition/Health Details: Type of diet: Regular. Appetite Good. Eating Difficulties None. Enteral Feedings No. TPN Feedings No. Skin Breakdown No. Caffeine intake amount: soda x 2 servings / daily. Substance Abuse Risk Assessment: Denies Substance Abuse; Details: Use: Past. Type: Prescription medications. Details: Use: Past. Type: Used suboxone recently in drug rehab. Tobacco Risk Assessment: High Risk; Details: Tobacco Use: use a vape pen uses it daily. Type: Electronic Cigarettes. Family medical HX Mother: HTN - Hypertension; Hyperlipidemia Father: Heart disease Code Status Code Status - Ordered -- 06/17/22 13:26:00 EDT, Full Code, Constant Order I Paula VILLANUEVA, am scribing for Paul Fitzpatrick NP, in the presence of Paul Fitzpatrick. I Paul Fitzpatrick NP, personally performed the services described in this documentation, as described by Paula VILLANUEVA in my presence and it is both accurate and complete. This document transcribed using voice recognition software may contain typographical errors. Digitally Signed by PAUL FITZPATRICK on 06/22/2022 08:16 AM [id number] Note Date of Service June 20, 2022 Chief Complaint Abdominal pain Subjective 46-year-old female with past medical history significant for seizure disorder, CVA, DVT/PE, factor V Leiden syndrome on Xarelto, GI bleed in 2017 who presents due to rectal bleed and left lower quadrant pain. Patient's imaging concerning for duodenitis and possible ileus. Patient was seen by gastroenterology during hospitalization who indicated patient symptoms are likely secondary to colitis. Noconcern for diverticular bleed. Patient has continued to experience intractable left lower quadrantabdominal pain and nausea. On evaluation today, patient indicates that overall her left lower quadrant abdominal pain is unchanged. She had worsening pain when she went down for x- ray. She also endorses nausea. Patient was able to tolerate oral intake without further emesis. Patient indicates pain is still not well controlled. She is passing flatus. She did have small amount of bowel movement yesterday. No other acute events overnight. Objective Vitals and Measurements T: 36.5 C (Oral) TMIN: 36.3 C (Oral) TMAX: 36.6 C (Oral) HR: 64(Apical) RR: 18 BP: 118/66 SpO2: 98% Intake and Output 7AM Yesterday to 7AM Today Intake and Output (Last 24 hours) Intake Oral Intake 240.00 Output Stool Count 1.00 Urine Count 4.00 Total Summary Total Intake 240.00 Total Output 0.00 Fluid Balance 240.00 Physical Exam General Appearance: Alert, oriented Head: Normocephalic, atraumatic EENT: PERRLA, EOMI. Neck: Supple, no JVD Cardiac: Regular rate and rhythm. Normal S1/S2. No murmurs appreciated. Lungs: Lungs clear to auscultation bilaterally. Abdomen: Soft, no significant abdominal pain on palpation, nondistended. BS *4. Extremities: No LE edema. Neurological: AO*3, CN 2-12 intact. Skin: No excoriations, lacerations, rash, or erythema Weight Dosing Weight: 98 kg (06/17/22) Dosing Weight: 98 kg (06/17/22) Medications Medications (30) Active Scheduled: (17) ascorbic acid 500 mg tablet 1,000 mg 2 tab(s), Oral, qDay bupropion 150 mg / 12hr SR tablet 150 mg 1 tab(s), Oral, BID busPIRone 10 mg Tablet 10 mg 1 tab(s), Oral, TID cholecalciferol 1250 mcg capsule (Vit D3 50,000 unit(s)) 1,250 mcg 1 cap(s), Oral, Tuesday clonidine 0.2 mg Tablet 0.2 mg 1 tab(s), Oral, BID furosemide 40 mg tablet 40 mg 1 tab(s), Oral, qDay lacosamide 100 mg tablet 200 mg 2 tab(s), Oral, qPM lacosamide 100 mg tablet 100 mg 1 tab(s), Oral, qAM lactulose 20 g/30 mL UD cup 10 gram(s) 15 mL, Oral, qDay magnesium oxide 400 mg Tablet 400 mg 1 tab(s), Oral, qDay methenamine hippurate 1 gm tablet 1 gram(s) 1 tab(s), Oral, qDay metoprolol tartrate 25 mg tablet 25 mg 1 tab(s), Oral, BID Nicoderm patch REMOVAL 1 EA, Miscellaneous, q24h nicotine 21 mg/24 hr ER patch 21 mg 1 patch(es), Transdermal, q24h pantoprazole 40 mg VIAL 40 mg, IV Push, q12h valacyclovir 500 mg Tablet 500 mg 1 tab(s), Oral, qDay venlafaxine 150 mg ER capsule 150 mg 1 cap(s), Oral, qDayM Continuous: (1) NS (0.9% nacl) 1,000 mL 1,000 mL, Intravenous, 100 mL/hr PRN: (12) acetaminophen 325 mg Tablet 650 mg 2 tab(s), Oral, q4h acetaminophen 325 mg Tablet 650 mg 2 tab(s), Oral, q4h acetaminophen-OXYcodone 325 mg-5 mg Tablet 1 tab(s), Oral, q4h acetaminophen-OXYcodone 325 mg-5 mg Tablet 2 tab(s), Oral, q4h albuterol - ipratropium 2.5 mg-0.5 mg/3 mL Inhal Sherice UD 3 mL, Inhalation, q4hRT APAP/butalbital/caffeine (FioriCET) 325 mg-50 mg-40 mg Tablet 1 tab(s), Oral, q4h clonazePAM 0.5 mg tablet 0.5 mg 1 tab(s), Oral, qDay diphenhydramine 25 mg tablet 25 mg 1 tab(s), Oral, q6hr HYDROmorphone 0.5 mg/0.5 mL PF syringe 0.5 mg 0.5 mL, IV Push, q6hr melatonin 3 mg tablet 3 mg 1 tab(s), Oral, qHS ondansetron 2 mg/ 1 mL 2 mL INJ 4 mg 2 mL, IV Push, q4h ondansetron 4 mg DIS tablet 4 mg 1 tab(s), Oral, q6h Lab Results 06/20 05:06 WBC: 5.8 Hgb: 12.6 Hct: 37.5 Platelet: 305 Neutrophil %: 43.5 L Glucose Level: 112 H Sodium Level: 141 Potassium Level: 3.3 L BUN: 9.0 Creatinine Lvl (s): 0.79 06/19 07:52 WBC: 6.6 Hgb: 12.7 Hct: 37.2 Platelet: 303 Neutrophil %: 63.1 Glucose Level: 111 H Sodium Level: 140 Potassium Level: 3.4 L BUN: <5.0 L Creatinine Lvl (s): 0.68 Assessment/Plan Left lower quadrant abdominal pain Rectal bleed History of GI bleed History of factor V Leiden syndrome on Xarelto History of CVA History of DVT/PE Patient presented with 1 day history of left lower quadrant abdominal pain and rectal bleed. CT abdomen/pelvis at presentation demonstrates possible duodenitis as well as ileus. Patient seen by gastroenterology who indicated patient's symptoms were likely correlating with colitis. Patient continuesto have left lower quad abdominal pain. No further rectal bleeding. Repeat x-ray abdominal imaging remain concerning for ileus and patient was not tolerating oral intake. Patient is improving. She ispassing flatus and had small bowel movements. Repeat imaging with resolution of ileus and no bowel obstruction. Patient continues to have left lower quadrant abdominal pain which she indicates is intractable and still requiring IV pain meds. Continue current regimen and monitor overnight. Regarding patient's elevated LFTs. These are trending down. Abdominal ultrasound completed which demonstrates mild prominent extrahepatic bile ducts within normal limits status postcholecystectomy and normal size and echogenicity of the liver. There are no acute findings on imaging. Acute hepatitispanel negative. Mitochondrial antibody and smooth muscle antibody screen are pending. Patient to follow with gastroenterology as an outpatient. Time Spent >25 minutes with >50% of the time spent counseling patient and/or coordinating care. Discussed plan of care with patient and nursing. Digitally Signed by JUWAN BELTRAN MD on 06/20/2022 06:05 PM Digitally Signed by JUWAN BELTRAN MD on 06/20/2022 06:07 PM [facility] [id number] Note ORIGINAL EXAMINATION: THREE XRAY VIEWS OF THE ABDOMEN 06/20/2022 10:30 am COMPARISON: Abdominal radiograph on 06/19/2022 HISTORY: ORDERING SYSTEM PROVIDED HISTORY: Reason for Exam: abd pain FINDINGS: IVC filter and right upper abdominal surgical clips noted. Nonobstructive bowel gas pattern with at least moderate colonic stool burden. Previously demonstrated air-fluid levels have significantly improved/resolved. No evidence of free intraperitoneal air. No abnormal abdominal calcifications. No acute osseous abnormality. IMPRESSION: Nonobstructive bowel gas pattern with significantly improved/resolved air-fluid levels. I have personally reviewed the images of this examination and agree with the resident's findings and interpretation. Interpreted by: Thang Castellon MD Preliminary Report By: Camilo Chang Electronically signed By Thang Castellon MD Dictated Date: 06/20/2022 1:06:59 PM Prelim Date: 06/20/2022 1:10:37 PM Sign Date: 06/20/2022 1:13:31 PM Ordering Provider: JUWAN BELTRAN [facility] [id number] Note ORIGINAL EXAMINATION: THREE XRAY VIEWS OF THE ABDOMEN 06/20/2022 10:30 am COMPARISON: Abdominal radiograph on 06/19/2022 HISTORY: ORDERING SYSTEM PROVIDED HISTORY: Reason for Exam: abd pain FINDINGS: IVC filter and right upper abdominal surgical clips noted. Nonobstructive bowel gas pattern with at least moderate colonic stool burden. Previously demonstrated air-fluid levels have significantly improved/resolved. No evidence of free intraperitoneal air. No abnormal abdominal calcifications. No acute osseous abnormality. IMPRESSION: Nonobstructive bowel gas pattern with significantly improved/resolved air-fluid levels. I have personally reviewed the images of this examination and agree with the resident's findings and interpretation. Interpreted by: Thang Castellon MD Preliminary Report By: Camilo Chang Electronically signed By Thang Castellon MD Dictated Date: 06/20/2022 1:06:59 PM Prelim Date: 06/20/2022 1:10:37 PM Sign Date: 06/20/2022 1:13:31 PM Ordering Provider: [facility]10-02-[facility]22 Note ORIGINAL EXAMINATION: RIGHT UPPER QUADRANT ULTRASOUND 06/20/2022 6:49 am COMPARISON: CT abdomen and pelvis on 06/17/2022 HISTORY: ORDERING SYSTEM PROVIDED HISTORY: Reason for Exam: elevated LFTs FINDINGS: LIVER: The liver demonstrates normal echogenicity without evidence of intrahepatic biliary ductal dilatation. The liver is normal in size with long axis of 15.2 cm. BILIARY SYSTEM: Gallbladder has been removed. Common bile duct is within normal limits measuring 9 mm. RIGHT KIDNEY: The right kidney is grossly unremarkable without evidence of hydronephrosis. The right kidney is 10 cm long. PANCREAS: Visualized portions of the pancreas are unremarkable. OTHER: No evidence of right upper quadrant ascites. IMPRESSION: Mildly prominent extrahepatic bile ducts are within normal limits status post cholecystectomy. Normal size and echogenicity of liver. No acute findings. RECOMMENDATIONS: Unavailable Interpreted by: Kwame Mao MD Preliminary Report By: Kwame Mao MD Electronically signed By Kwame Mao MD Dictated Date: 06/20/2022 6:52:11 AM Prelim Date: 06/20/2022 6:55:12 AM Sign Date: 06/20/2022 6:55:12 AM Ordering Provider: [facility]10-02-2022 Note ORIGINAL EXAMINATION: RIGHT UPPER QUADRANT ULTRASOUND 06/20/2022 6:49 am COMPARISON: CT abdomen and pelvis on 06/17/2022 HISTORY: ORDERING SYSTEM PROVIDED HISTORY: Reason for Exam: elevated LFTs FINDINGS: LIVER: The liver demonstrates normal echogenicity without evidence of intrahepatic biliary ductal dilatation. The liver is normal in size with long axis of 15.2 cm. BILIARY SYSTEM: Gallbladder has been removed. Common bile duct is within normal limits measuring 9 mm. RIGHT KIDNEY: The right kidney is grossly unremarkable without evidence of hydronephrosis. The right kidney is 10 cm long. PANCREAS: Visualized portions of the pancreas are unremarkable. OTHER: No evidence of right upper quadrant ascites. IMPRESSION: Mildly prominent extrahepatic bile ducts are within normal limits status post cholecystectomy. Normal size and echogenicity of liver. No acute findings. RECOMMENDATIONS: Unavailable Interpreted by: Kwame Mao MD Preliminary Report By: Kwame Mao MD Electronically signed By Kwame Mao MD Dictated Date: 06/20/2022 6:52:11 AM Prelim Date: 06/20/2022 6:55:12 AM Sign Date: 06/20/2022 6:55:12 AM Ordering Provider: [facility]10-01-2022 Note Date of Service June 19, 2022 Chief Complaint Abdominal pain Subjective 46-year-old female with past medical history significant for seizure disorder, CVA, DVT/PE, factor V Leiden syndrome on Xarelto, GI bleed in 2017 who presents due to rectal bleed and left lower quadrant pain. Patient's imaging concerning for duodenitis and possible ileus. Patient was seen by gastroenterology indicated patient symptoms are likely secondary to colitis. No concern for diverticular bleed. Patient has continued to experience abdominal pain, nausea, emesis. On evaluation today, patient continues to experience abdominal pain. She is also experiencing nausea and emesis. No hematemesis or coffee-ground emesis. Patient denies any melena or hematochezia. Shedoes note early satiety his diet is being advanced. No other acute events overnight. Objective Vitals and Measurements T: 36.7 C (Oral) TMIN: 36.7 C (Oral) TMAX: 36.8 C (Oral) HR: 67 RR: 20 BP: 104/65 SpO2: 95% Intake and Output 7AM Yesterday to 7AM Today Intake and Output (Last 24 hours) Intake Oral Intake 1460.00 Output Urine Count 7.00 Emesis Count 1.00 Total Summary Total Intake 1460.00 Total Output 0.00 Fluid Balance 1460.00 Physical Exam General Appearance: Alert, oriented Head: Normocephalic, atraumatic EENT: PERRLA, EOMI. Neck: Supple, no JVD Cardiac: Regular rate and rhythm. Normal S1/S2. No murmurs appreciated. Lungs: Lungs clear to auscultation bilaterally. Abdomen: Soft, lower quadrant tenderness palpation, nondistended. BS *4. Extremities: No LE edema. Neurological: AO*3, CN 2-12 intact. Skin: No excoriations, lacerations, rash, or erythema Psychiatric: Normal affect Weight Dosing Weight: 98 kg (06/17/22) Dosing Weight: 98 kg (06/17/22) Medications Medications (29) Active Scheduled: (17) ascorbic acid 500 mg tablet 1,000 mg 2 tab(s), Oral, qDay bupropion 150 mg / 12hr SR tablet 150 mg 1 tab(s), Oral, BID busPIRone 10 mg Tablet 10 mg 1 tab(s), Oral, TID cholecalciferol 1250 mcg capsule (Vit D3 50,000 unit(s)) 1,250 mcg 1 cap(s), Oral, Tuesday clonidine 0.2 mg Tablet 0.2 mg 1 tab(s), Oral, BID furosemide 40 mg tablet 40 mg 1 tab(s), Oral, qDay lacosamide 100 mg tablet 200 mg 2 tab(s), Oral, qPM lacosamide 100 mg tablet 100 mg 1 tab(s), Oral, qAM lactulose 20 g/30 mL UD cup 10 gram(s) 15 mL, Oral, qDay magnesium oxide 400 mg Tablet 400 mg 1 tab(s), Oral, qDay methenamine hippurate 1 gm tablet 1 gram(s) 1 tab(s), Oral, qDay metoprolol tartrate 25 mg tablet 25 mg 1 tab(s), Oral, BID Nicoderm patch REMOVAL 1 EA, Miscellaneous, q24h nicotine 21 mg/24 hr ER patch 21 mg 1 patch(es), Transdermal, q24h pantoprazole 40 mg VIAL 40 mg, IV Push, q12h valacyclovir 500 mg Tablet 500 mg 1 tab(s), Oral, qDay venlafaxine 150 mg ER capsule 150 mg 1 cap(s), Oral, qDayM Continuous: (1) NS (0.9% nacl) 1,000 mL 1,000 mL, Intravenous, 100 mL/hr PRN: (11) acetaminophen 325 mg Tablet 650 mg 2 tab(s), Oral, q4h acetaminophen 325 mg Tablet 650 mg 2 tab(s), Oral, q4h acetaminophen-OXYcodone 325 mg-5 mg Tablet 1 tab(s), Oral, q4h acetaminophen-OXYcodone 325 mg-5 mg Tablet 2 tab(s), Oral, q4h albuterol - ipratropium 2.5 mg-0.5 mg/3 mL Inhal Sherice UD 3 mL, Inhalation, q4hRT APAP/butalbital/caffeine (FioriCET) 325 mg-50 mg-40 mg Tablet 1 tab(s), Oral, q4h clonazePAM 0.5 mg tablet 0.5 mg 1 tab(s), Oral, qDay diphenhydramine 25 mg tablet 25 mg 1 tab(s), Oral, q6hr melatonin 3 mg tablet 3 mg 1 tab(s), Oral, qHS ondansetron 2 mg/ 1 mL 2 mL INJ 4 mg 2 mL, IV Push, q4h ondansetron 4 mg DIS tablet 4 mg 1 tab(s), Oral, q6h Lab Results 06/19 07:52 WBC: 6.6 Hgb: 12.7 Hct: 37.2 Platelet: 303 Neutrophil %: 63.1 Glucose Level: 111 H Sodium Level: 140 Potassium Level: 3.4 L BUN: <5.0 L Creatinine Lvl (s): 0.68 06/18 07:26 WBC: 6.0 Hgb: 12.5 Hct: 37.0 Platelet: 295 Neutrophil %: 68.8 Glucose Level: 154 H Sodium Level: 139 Potassium Level: 3.8 BUN: 8.0 Creatinine Lvl (s): 0.68 Assessment/Plan Left lower quadrant abdominal pain Rectal bleed History of GI bleed History of factor V Leiden syndrome on Xarelto History of CVA History of DVT/PE Patient presented with 1 day history of left lower quadrant abdominal pain and rectal bleed. CT abdomen/pelvis at presentation demonstrates possible duodenitis as well as ileus. Patient seen by gastroenterology who indicated patient's symptoms were likely correlating with colitis. Patient continuesto have left lower quad abdominal pain. No further rectal bleeding. Patient again had nausea and emesis today. She was initiated for liquid diet which was advanced to soft however patient continues to have abdominal discomfort and early satiety. Repeat imaging again demonstrates ileus. Will decrease diuretic to full liquid diet. Continue patient on pain management and antiemetics. Monitor overnight. Time Spent >25 minutes with >50% of the time spent counseling patient and/or coordinating care. Discussed plan of care with patient and nursing. Digitally Signed by JUWAN BELTRAN MD on 06/19/2022 04:36 PM [id number] Note ORIGINAL EXAMINATION: THREE XRAY VIEWS OF THE FXMPXPX61/1/2022 12:40 pm ABDOMEN, 3 VIEWS COMPARISON: 06/17/2022 HISTORY: ORDERING SYSTEM PROVIDED HISTORY: Reason for Exam: abd pain/ f/u CT ? duodenitis/ ? free air FINDINGS: IVC filter noted. Surgical clips in the right upper quadrant. There is no visible free intraperitoneal air. Numerous air-fluid level seen in the right abdomen. Moderate stool identified in the colon. Chronic appearing right rib deformities noted. IMPRESSION: Numerous air-fluid levels in the small bowel, possibly an ileus. There are no air distended bowel segments No free intraperitoneal air Interpreted by: Thang Castellon MD Preliminary Report By: Thang Castellon MD Electronically signed By Thang Castellon MD Dictated Date: 06/19/2022 12:56:41 PM Prelim Date: 06/19/2022 12:58:45 PM Sign Date: 06/19/2022 12:58:45 PM Ordering Provider: MI MAYS [facility] [id number] Note ORIGINAL EXAMINATION: THREE XRAY VIEWS OF THE VDSKHYY83/1/2022 12:40 pm ABDOMEN, 3 VIEWS COMPARISON: 06/17/2022 HISTORY: ORDERING SYSTEM PROVIDED HISTORY: Reason for Exam: abd pain/ f/u CT ? duodenitis/ ? free air FINDINGS: IVC filter noted. Surgical clips in the right upper quadrant. There is no visible free intraperitoneal air. Numerous air-fluid level seen in the right abdomen. Moderate stool identified in the colon. Chronic appearing right rib deformities noted. IMPRESSION: Numerous air-fluid levels in the small bowel, possibly an ileus. There are no air distended bowel segments No free intraperitoneal air Interpreted by: Thang Castellon MD Preliminary Report By: Thang Castellon MD Electronically signed By Thang Castellon MD Dictated Date: 06/19/2022 12:56:41 PM Prelim Date: 06/19/2022 12:58:45 PM Sign Date: 06/19/2022 12:58:45 PM Ordering Provider: [id number] Gastroenterology Progress note Date of Service 06/19/2022 Subjective Still with some nausea episodic bouts of vomiting Poor intake Passing flatus but no bowel movements Small-volume bright red blood per rectum noted Objective Vitals and Measurements T: 36.7 C (Oral) TMIN: 36.7 C (Oral) TMAX: 37.0 C (Oral) HR: 83(Apical) RR: 18 BP: 118/74 SpO2: 95% Intake and Output 7AM Yesterday to 7AM Today Intake and Output (Last 24 hours) Intake Oral Intake 860.00 Output Urine Count 4.00 Emesis Count 1.00 Total Summary Total Intake 860.00 Total Output 0.00 Fluid Balance 860.00 Physical Exam Abdomen obese positive bowel sounds soft mild diffuse upper and mid abdomen tenderness Weight Dosing Weight: 98 kg (06/17/22) Dosing Weight: 98 kg (06/17/22) Assessment/Plan Abdominal pain Unresolved but slowly improving LFTs remain elevated but trending downward Plan Limit to complete and viral hepatitis panel Agree with follow-up LFTs Will need ultrasound to further assess if this can be done electively pending discretion of admitting Outpatient follow-up with her primary care and establish 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 Extensive education given on importance of IV fluid therapy and still refuses. Digitally Signed by Candace Steele RN on 06/19/2022 02:48 AM [facility] [id number] Note Date of Service June 18, 2022 Chief Complaint Abdominal pain Subjective 46-year-old female with past medical history significant for seizure disorder, CVA, DVT/PE, factor V Leiden syndrome on Xarelto, GI bleed in 2017 who presents due to rectal bleed and left lower quadrant pain. Patient's imaging concerning for duodenitis and possible ileus. Patient was seen by gastroenterology indicated patient symptoms are likely secondary to colitis. In evaluation today, patient indicates she is doing better. She has not had any further significantrectal bleed. She has had some minimal blood on the toilet paper with wiping in addition to mucus but otherwise no significant bleeding. Abdominal pain is overall unchanged. No nausea or emesis and patient tolerating oral intake. No other acute events overnight. Objective Vitals and Measurements T: 37.0 C (Oral) TMIN: 36.5 C (Oral) TMAX: 37.0 C (Oral) HR: 96 RR: 18 BP: 114/65 SpO2: 96% HT: 160cm WT: 98 kg BMI: 38.28 Intake and Output 7AM Yesterday to 7AM Today Intake and Output (Last 24 hours) Intake Output Total Summary Total Intake 0.00 Total Output 0.00 Fluid Balance 0.00 Physical Exam General Appearance: Alert, oriented Head: Normocephalic, atraumatic EENT: PERRLA, EOMI. Neck: Supple, no JVD Cardiac: Regular rate and rhythm. Normal S1/S2. Lungs: Lungs clear to auscultation bilaterally. Abdomen: Soft, nontender, nondistended. BS *4. Extremities: No LE edema. Neurological: AO*3, CN 2-12 intact. Skin: No excoriations, lacerations, rash, or erythema Psychiatric: Normal affect Weight Dosing Weight: 98 kg (06/17/22) Dosing Weight: 98 kg (06/17/22) Medications Medications (30) Active Scheduled: (19) ascorbic acid 500 mg tablet 1,000 mg 2 tab(s), Oral, qDay bupropion 150 mg / 12hr SR tablet 150 mg 1 tab(s), Oral, BID busPIRone 10 mg Tablet 10 mg 1 tab(s), Oral, TID cholecalciferol 1250 mcg capsule (Vit D3 50,000 unit(s)) 1,250 mcg 1 cap(s), Oral, Kenneth clonidine 0.2 mg Tablet 0.2 mg 1 tab(s), Oral, BID famotidine 40 mg tablet 40 mg 1 tab(s), Oral, qDay furosemide 40 mg tablet 40 mg 1 tab(s), Oral, qDay lacosamide 100 mg tablet 200 mg 2 tab(s), Oral, qPM lacosamide 100 mg tablet 100 mg 1 tab(s), Oral, qAM lactulose 20 g/30 mL UD cup 10 gram(s) 15 mL, Oral, qDay magnesium oxide 400 mg Tablet 400 mg 1 tab(s), Oral, qDay methenamine hippurate 1 gm tablet 1 gram(s) 1 tab(s), Oral, qDay metoprolol tartrate 25 mg tablet 25 mg 1 tab(s), Oral, BID Nicoderm patch REMOVAL 1 EA, Miscellaneous, q24h Nicoderm patch REMOVAL 1 EA, Miscellaneous, Once nicotine 21 mg/24 hr ER patch 21 mg 1 patch(es), Transdermal, q24h pantoprazole 40 mg VIAL 40 mg, IV Push, q12h valacyclovir 500 mg Tablet 500 mg 1 tab(s), Oral, qDay venlafaxine 150 mg ER capsule 150 mg 1 cap(s), Oral, qDayM Continuous: (1) NS (0.9% nacl) 1,000 mL 1,000 mL, Intravenous, 100 mL/hr PRN: (10) acetaminophen 325 mg Tablet 650 mg 2 tab(s), Oral, q4h acetaminophen 325 mg Tablet 650 mg 2 tab(s), Oral, q4h acetaminophen-OXYcodone 325 mg-5 mg Tablet 1 tab(s), Oral, q4h albuterol - ipratropium 2.5 mg-0.5 mg/3 mL Inhal Sherice UD 3 mL, Inhalation, q4hRT APAP/butalbital/caffeine (FioriCET) 325 mg-50 mg-40 mg Tablet 1 tab(s), Oral, q4h clonazePAM 0.5 mg tablet 0.5 mg 1 tab(s), Oral, qDay hydromorphone 1 mg/mL (1mL) INJ 1 mg 1 mL, IV Push, q4h melatonin 3 mg tablet 3 mg 1 tab(s), Oral, qHS ondansetron 2 mg/ 1 mL 2 mL INJ 4 mg 2 mL, IV Push, q4h ondansetron 4 mg DIS tablet 4 mg 1 tab(s), Oral, q6h Lab Results 06/18 07:26 WBC: 6.0 Hgb: 12.5 Hct: 37.0 Platelet: 295 Neutrophil %: 68.8 Glucose Level: 154 H Sodium Level: 139 Potassium Level: 3.8 BUN: 8.0 Creatinine Lvl (s): 0.68 06/17 11:26 WBC: 8.7 Hgb: 13.0 Hct: 38.8 Platelet: 334 Neutrophil %: 57.3 Protime: 13.0 PT International Ratio: 1.1 Glucose Level: 98 Sodium Level: 142 Potassium Level: 3.9 BUN: 10.0 Creatinine Lvl (s): 0.83 Assessment/Plan Left lower quadrant abdominal pain Rectal bleed History of GI bleed History of factor V Leiden syndrome on Xarelto History of CVA History of DVT/PE Patient presents with 1 day history of left lower quadrant abdominal pain and rectal bleed. PatientCT abdomen/pelvis at presentation demonstrates possible duodenitis as well as possible ileus. Patient seen by gastroenterology who indicated patient's symptoms were likely correlating with colitis. Patient continues to have left lower quad abdominal pain. No significant rectal bleeding any longer. No nausea or emesis. Tolerating clinical diet. Diet advanced to full liquid. Continue pain regimen. Monitor overnight. Hemoglobin remained stable. No endoscopic evaluation at this time per gastroenterology. Patient will need follow-up with GI as an outpatient as previously scheduled. Time Spent >25 minutes with >50% of the time spent counseling patient and/or coordinating care. Discussed plan of care with patient and nursing. Digitally Signed by JUWAN BELTRAN MD on 06/18/2022 08:28 PM [facility] [id number] Gastroenterology Consult note Date of Service 06/18/2022 Reason for Consultation Rectal bleeding History of Present Illness Mrs. 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 She is currently on Xarelto and had been on Coumadin in the past. She has a history of complications include DVTs. Patient also has a history of CHF pulmonary embolism and prior GI bleeding approximately 5 years ago. She was recently discharged from another local hospital for abdominal pain where she tells me that she had a bowel obstruction which is thought to be adhesional as she has had prior appendectomy cholecystectomy and hysterectomy. She states that pain was in the mid to lower abdomen that resolved but she has been having chronic epigastric pain that was mostly postprandial for months and had intentions to see a GI doctor and has an appointment for June for third of next week. Of note patient has had prior EGDs and colonoscopies but they both were greater than 5 years ago. She states she has a history of colon polyps diverticular disease she has had diverticulitis and was told that she had a colitis apparently ischemic in the past. She also had pancreatitis in the past and attributed that to a remote alcohol use of which she has not drank since 2008. She comes in complaining of increased lower abdominal pain followed by diarrhea followed by bleeding of mostly bright red blood per rectum. The patient has had multiple CTs over the last [address] during this admission shows evidence of duodenitis. Note patient takes ibuprofen/nonsteroidals quiteregularly Review of Systems No weight loss She does have anorexia for the last week decreased p.o. intake otherwise have been normal No flulike symptoms fevers just was myalgias No respiratory complaint cough wheeze shortness of breath No chest pain complaint no syncope no lightheadedness She has chronic pain however She also has mood disorders History of dyslipidemia but currently not on any meds History of chronically elevated transaminases history reportedly of fatty liver diagnosed via biopsy Neurologically she complains of chronic headaches Physical Exam Vitals and Measurements T: 36.6 C (Oral) TMIN: 36.5 C (Oral) TMAX: 36.6 C (Oral) HR: 78 RR: 18 BP: 125/92 SpO2: 96% HT: 160cm WT: 98 kg BMI: 38.28 Weight Dosing Weight: 98 kg (06/17/22) Dosing Weight: 98 kg (06/17/22) Awake alert responsive oriented no acute distress Obese white female Scant nonpitting lower extremity edema HEENT eyes are nonicteric mucosa pink moist neck supple Lungs are clear Heart regular rhythm no noted murmur Abdomen obese but nondistended positive bowel sounds soft she does have diffuse tenderness mostly mid abdomen and lower abdomen No palpable fullness or mass Rectal deferred Lab Results 06/18 07:26 WBC: 6.0 Hgb: 12.5 Hct: 37.0 Platelet: 295 Neutrophil %: 68.8 Glucose Level: 154 H Sodium Level: 139 Potassium Level: 3.8 BUN: 8.0 Creatinine Lvl (s): 0.68 06/17 11:26 WBC: 8.7 Hgb: 13.0 Hct: 38.8 Platelet: 334 Neutrophil %: 57.3 Protime: 13.0 PT International Ratio: 1.1 Glucose Level: 98 Sodium Level: 142 Potassium Level: 3.9 BUN: 10.0 Creatinine Lvl (s): 0.83 Imaging Results and Diagnostics (06/17/2022 05:[address] Abdomen/Pelvis w/o Contrast) FINDINGS: No acute osseous abnormality. Tiny fat containing umbilical hernia. Unchanged partially visualized, partially calcified solid right middle lobe pulmonary nodule measuring about 4 mm, on image 1 of series 2. There is an additional calcified nodule at the lingula. Otherwise included lung bases are clear. [1] Assessment/Plan Abdominal pain Chronic and recurrent Reports 2 separate pains Patient has underlying chronic constipation managed with Linzess but with her remote prior abdominal surgeries and recent hospitalization for bowel obstruction she likely has adhesional pain chronically She also has a daily nonsteroidal use and imaging showing duodenitis this is likely NSAID induced duodenitis and duodenal ulcers plus or minus gastropathy Lastly the acute pain that brought her and seems to be different than due to pain as noted above and associated with bleeding with her history of blood dyscrasia and reported history of prior ischemic colitis this is likely causative despite not showing up on the CT Plan Okay for clears advance slowly as tolerated Continue supportive measures antipain antiemetics Advised patient to avoid nonsteroidals Maintain bowel regularity Recommend daily PPI Keep upcoming appointment next week with gastroenterology and recommend EGD to further assess and colonoscopy per their discretion within the next 4 to 6 weeks after resolution of lower abdominal pain Disposition per admitting after resolution of the acute aspect of her pain in extremities and no further active bleeding likely within the next 24 to 48 hours Rectal bleed Again I do believe this may be a mild ischemic colitis less likely diverticular bleed given pain and tenderness on exam Plan As per above Problem List/Past Medical History Ongoing Anxiety Chronic constipation Chronic diastolic HF (heart failure) Clotting disorder Depression DVT - Deep vein thrombosis Dyslipidemia Dyspnea on exertion Dysuria Edema Elevated fasting glucose Factor V deficiency GI bleed Hallucinations History of ESBL E. coli infection Ischemic colitis Major depressive disorder, severe Migraine Palpitation Pancreatitis Psychosis Pulmonary emboli Screening for breast cancer Screening for ischemic heart disease Seizure disorder Small bowel obstruction Stroke Vitamin D deficiency Weight gain Historical Bipolar 1 disorder Elevated liver enzymes High blood pressure History of MRSA infection Preoperative clearance Procedure/Surgical History Prescription event monitorin08/31/20 Cardiovascular stress testin08/07/20 Cardiovascular stress testin08/07/20 Cardiac echo: 02/14/20 Cardiac echo: 01/20/18 Cardiac echo: 01/17/18 Abdominal hysterectomy section Appendectomy Cholecystectomy section Filter Tonsillectomy ERCP Medications Inpatient buPROPion 150 mg/12 hours (SR) oral tablet, extended release, 150 mg= 1 tab(s), Oral, BID busPIRone, 10 mg= 1 tab(s), Oral, TID Dilaudid, 1 mg= 1 mL, IV Push, q4h, PRN DuoNeb, 3 mL, Inhalation, q4hRT, PRN lacosamide, 200 mg= 2 tab(s), Oral, qPM lacosamide, 100 mg= 1 tab(s), Oral, qAM lactulose, 10 gram(s)= 15 mL, Oral, qDay melatonin, 3 mg= 1 tab(s), Oral, qHS, PRN methenamine hippurate 1 g oral tablet, 1 gram(s)= 1 tab(s), Oral, qDay NS 1,000 mL, 1000 mL, Intravenous Pepcid, 40 mg= 1 tab(s), Oral, qDay Percocet 325/5, 1 tab(s), Oral, q4h, PRN Protonix IV Push, 40 mg, IV Push, q12h Tylenol, 650 mg= 2 tab(s), Oral, q4h, PRN Tylenol, 650 mg= 2 tab(s), Oral, q4h, PRN valACYclovir, 500 mg= 1 tab(s), Oral, qDay venlafaxine extended release capsule, 150 mg= 1 cap(s), Oral, qDayM Zofran, 4 mg= 2 mL, IV Push, q4h, PRN Zofran ODT, 4 mg= 1 tab(s), Oral, q6h, PRN Home acetaminophen 500 mg oral tablet, 500 mg= 1 tab(s), Oral, qDay, PRN acetaminophen/butalbital/caffeine 325 mg-50 mg-40 mg oral capsule, 1-2 caps, Oral, q4h, PRN buPROPion 150 mg/12 hours (SR) oral tablet, extended release, 150 mg= 1 tab(s), Oral, BID busPIRone 10 mg oral tablet, 10 mg= 1 tab(s), Oral, TID cholecalciferol 1250 mcg (50,000 intl units) oral capsule, 1250 mcg= 1 cap(s), Oral, Tuesday clonazePAM 0.5 mg oral tablet, 0.5 mg= 1 tab(s), Oral, qDay, PRN clonazePAM 0.5 mg oral tablet, 0.5 mg= 1 tab(s), Oral, qDay, PRN cloNIDine 0.2 mg oral tablet, 0.2 mg= 1 tab(s), Oral, BID furosemide 40 mg oral tablet, 40 mg= 1 tab(s), Oral, qDay ibuprofen 200 mg oral tablet, 400 mg= 2 tab(s), Oral, qDay, PRN lacosamide 100 mg oral tablet, 100 mg= 1 tab(s), Oral, qAM lacosamide 100 mg oral tablet, 200 mg= 2 tab(s), Oral, qPM lactulose 10 g/15 mL oral syrup, 10 gram(s)= 15 mL, Oral, qDay Linzess 290 mcg oral capsule, 290 mcg= 1 cap(s), Oral, qDay magnesium oxide 400 mg oral tablet, 400 mg= 1 tab(s), Oral, qDay methenamine hippurate 1 g oral tablet, 1 gram(s)= 1 tab(s), Oral, qDay metoprolol tartrate 25 mg oral tablet, 25 mg= 1 tab(s), Oral, BID Pepcid 40 mg oral tablet, 40 mg= 1 tab(s), Oral, qDay potassium chloride 20 mEq oral tablet, extended release, 20 mEq= 1 tab(s), Oral, TID valACYclovir 500 mg oral tablet, 500 mg= 1 tab(s), Oral, qDay venlafaxine 150 mg oral capsule, extended release, 150 mg= 1 cap(s), Oral, qDay Vitamin C 1000 mg oral tablet, 1000 mg= 1 tab(s), Oral, qDay Xarelto 10 mg oral tablet, 10 mg= 1 tab(s), Oral, qDay Allergies penicillin (Rash) Neurontin (Vomiting) morphine (Cramping) sulfa drug Social History Smoking Status - 07/06/2018 Current every day smoker Alcohol - Low Risk, 09/16/2017 Use: Past., 07/18/2019 Employment/School Status: Unemployed., 03/07/2020 Exercise Days per week: 1-2 times/week., 03/07/2020 Home/Environment Domestic Concerns: Denies. Living situation: Home/Independent. 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 Lives In: 1st floor bedroom, 1st floor bathroom, 2 steps to enter home . Current Home Treatments every Tuesday INR checks . Professional Skilled Services or Special Community Resources None. Financial concerns: No. Marital Status: Unmarried., 05/29/2021 Nutrition/Health Type of diet: Regular. Appetite Good. Eating Difficulties None. Enteral Feedings No. TPN Feedings No. Skin Breakdown No. Caffeine intake amount: soda x 2 servings / daily., 05/29/2021 Substance Abuse - Denies Substance Abuse, 06/16/2017 Use: Past. Type: Prescription medications., 04/06/2021 Use: Past. Type: Used suboxone recently in drug rehab., 11/08/2019 Tobacco - High Risk, 01/04/2019 Tobacco Use: use a vape pen uses it daily. Type: Electronic Cigarettes., 01/25/2019 Family History HTN - Hypertension: Mother. Heart disease: Father. Hyperlipidemia: Mother. Immunizations No qualifying data available. [1] CT Abdomen/Pelvis w/o Contrast; KWAME MAO MD 06/17/2022 05:59 EDT Digitally Signed by MI MAYS on 06/18/2022 09:38 AM [facility] [id number] Gastroenterology Consult note Date of Service 06/18/2022 Reason for Consultation Rectal bleeding History of Present Illness Mrs. 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 She is currently on Xarelto and had been on Coumadin in the past. She has a history of complications include DVTs. Patient also has a history of CHF pulmonary embolism and prior GI bleeding approximately 5 years ago. She was recently discharged from another local hospital for abdominal pain where she tells me that she had a bowel obstruction which is thought to be adhesional as she has had prior appendectomy cholecystectomy and hysterectomy. She states that pain was in the mid to lower abdomen that resolved but she has been having chronic epigastric pain that was mostly postprandial for months and had intentions to see a GI doctor and has an appointment for June for third of next week. Of note patient has had prior EGDs and colonoscopies but they both were greater than 5 years ago. She states she has a history of colon polyps diverticular disease she has had diverticulitis and was told that she had a colitis apparently ischemic in the past. She also had pancreatitis in the past and attributed that to a remote alcohol use of which she has not drank since 2008. She comes in complaining of increased lower abdominal pain followed by diarrhea followed by bleeding of mostly bright red blood per rectum. The patient has had multiple CTs over the last [address] during this admission shows evidence of duodenitis. Note patient takes ibuprofen/nonsteroidals quiteregularly Review of Systems No weight loss She does have anorexia for the last week decreased p.o. intake otherwise have been normal No flulike symptoms fevers just was myalgias No respiratory complaint cough wheeze shortness of breath No chest pain complaint no syncope no lightheadedness She has chronic pain however She also has mood disorders History of dyslipidemia but currently not on any meds History of chronically elevated transaminases history reportedly of fatty liver diagnosed via biopsy Neurologically she complains of chronic headaches Physical Exam Vitals and Measurements T: 36.6 C (Oral) TMIN: 36.5 C (Oral) TMAX: 36.6 C (Oral) HR: 78 RR: 18 BP: 125/92 SpO2: 96% HT: 160cm WT: 98 kg BMI: 38.28 Weight Dosing Weight: 98 kg (06/17/22) Dosing Weight: 98 kg (06/17/22) Awake alert responsive oriented no acute distress Obese white female Scant nonpitting lower extremity edema HEENT eyes are nonicteric mucosa pink moist neck supple Lungs are clear Heart regular rhythm no noted murmur Abdomen obese but nondistended positive bowel sounds soft she does have diffuse tenderness mostly mid abdomen and lower abdomen No palpable fullness or mass Rectal deferred Lab Results 06/18 07:26 WBC: 6.0 Hgb: 12.5 Hct: 37.0 Platelet: 295 Neutrophil %: 68.8 Glucose Level: 154 H Sodium Level: 139 Potassium Level: 3.8 BUN: 8.0 Creatinine Lvl (s): 0.68 06/17 11:26 WBC: 8.7 Hgb: 13.0 Hct: 38.8 Platelet: 334 Neutrophil %: 57.3 Protime: 13.0 PT International Ratio: 1.1 Glucose Level: 98 Sodium Level: 142 Potassium Level: 3.9 BUN: 10.0 Creatinine Lvl (s): 0.83 Imaging Results and Diagnostics (06/17/2022 05:[address] Abdomen/Pelvis w/o Contrast) FINDINGS: No acute osseous abnormality. Tiny fat containing umbilical hernia. Unchanged partially visualized, partially calcified solid right middle lobe pulmonary nodule measuring about 4 mm, on image 1 of series 2. There is an additional calcified nodule at the lingula. Otherwise included lung bases are clear. [1] Assessment/Plan Abdominal pain Chronic and recurrent Reports 2 separate pains Patient has underlying chronic constipation managed with Linzess but with her remote prior abdominal surgeries and recent hospitalization for bowel obstruction she likely has adhesional pain chronically She also has a daily nonsteroidal use and imaging showing duodenitis this is likely NSAID induced duodenitis and duodenal ulcers plus or minus gastropathy Lastly the acute pain that brought her and seems to be different than due to pain as noted above and associated with bleeding with her history of blood dyscrasia and reported history of prior ischemic colitis this is likely causative despite not showing up on the CT Plan Okay for clears advance slowly as tolerated Continue supportive measures antipain antiemetics Advised patient to avoid nonsteroidals Maintain bowel regularity Recommend daily PPI Keep upcoming appointment next week with gastroenterology and recommend EGD to further assess and colonoscopy per their discretion within the next 4 to 6 weeks after resolution of lower abdominal pain Disposition per admitting after resolution of the acute aspect of her pain in extremities and no further active bleeding likely within the next 24 to 48 hours Rectal bleed Again I do believe this may be a mild ischemic colitis less likely diverticular bleed given pain and tenderness on exam Plan As per above Problem List/Past Medical History Ongoing Anxiety Chronic constipation Chronic diastolic HF (heart failure) Clotting disorder Depression DVT - Deep vein thrombosis Dyslipidemia Dyspnea on exertion Dysuria Edema Elevated fasting glucose Factor V deficiency GI bleed Hallucinations History of ESBL E. coli infection Ischemic colitis Major depressive disorder, severe Migraine Palpitation Pancreatitis Psychosis Pulmonary emboli Screening for breast cancer Screening for ischemic heart disease Seizure disorder Small bowel obstruction Stroke Vitamin D deficiency Weight gain Historical Bipolar 1 disorder Elevated liver enzymes High blood pressure History of MRSA infection Preoperative clearance Procedure/Surgical History Prescription event monitorin08/31/20 Cardiovascular stress testin08/07/20 Cardiovascular stress testin08/07/20 Cardiac echo: 02/14/20 Cardiac echo: 01/20/18 Cardiac echo: 01/17/18 Abdominal hysterectomy section Appendectomy Cholecystectomy section Filter Tonsillectomy ERCP Medications Inpatient buPROPion 150 mg/12 hours (SR) oral tablet, extended release, 150 mg= 1 tab(s), Oral, BID busPIRone, 10 mg= 1 tab(s), Oral, TID Dilaudid, 1 mg= 1 mL, IV Push, q4h, PRN DuoNeb, 3 mL, Inhalation, q4hRT, PRN lacosamide, 200 mg= 2 tab(s), Oral, qPM lacosamide, 100 mg= 1 tab(s), Oral, qAM lactulose, 10 gram(s)= 15 mL, Oral, qDay melatonin, 3 mg= 1 tab(s), Oral, qHS, PRN methenamine hippurate 1 g oral tablet, 1 gram(s)= 1 tab(s), Oral, qDay NS 1,000 mL, 1000 mL, Intravenous Pepcid, 40 mg= 1 tab(s), Oral, qDay Percocet 325/5, 1 tab(s), Oral, q4h, PRN Protonix IV Push, 40 mg, IV Push, q12h Tylenol, 650 mg= 2 tab(s), Oral, q4h, PRN Tylenol, 650 mg= 2 tab(s), Oral, q4h, PRN valACYclovir, 500 mg= 1 tab(s), Oral, qDay venlafaxine extended release capsule, 150 mg= 1 cap(s), Oral, qDayM Zofran, 4 mg= 2 mL, IV Push, q4h, PRN Zofran ODT, 4 mg= 1 tab(s), Oral, q6h, PRN Home acetaminophen 500 mg oral tablet, 500 mg= 1 tab(s), Oral, qDay, PRN acetaminophen/butalbital/caffeine 325 mg-50 mg-40 mg oral capsule, 1-2 caps, Oral, q4h, PRN buPROPion 150 mg/12 hours (SR) oral tablet, extended release, 150 mg= 1 tab(s), Oral, BID busPIRone 10 mg oral tablet, 10 mg= 1 tab(s), Oral, TID cholecalciferol 1250 mcg (50,000 intl units) oral capsule, 1250 mcg= 1 cap(s), Oral, Tuesday clonazePAM 0.5 mg oral tablet, 0.5 mg= 1 tab(s), Oral, qDay, PRN clonazePAM 0.5 mg oral tablet, 0.5 mg= 1 tab(s), Oral, qDay, PRN cloNIDine 0.2 mg oral tablet, 0.2 mg= 1 tab(s), Oral, BID furosemide 40 mg oral tablet, 40 mg= 1 tab(s), Oral, qDay ibuprofen 200 mg oral tablet, 400 mg= 2 tab(s), Oral, qDay, PRN lacosamide 100 mg oral tablet, 100 mg= 1 tab(s), Oral, qAM lacosamide 100 mg oral tablet, 200 mg= 2 tab(s), Oral, qPM lactulose 10 g/15 mL oral syrup, 10 gram(s)= 15 mL, Oral, qDay Linzess 290 mcg oral capsule, 290 mcg= 1 cap(s), Oral, qDay magnesium oxide 400 mg oral tablet, 400 mg= 1 tab(s), Oral, qDay methenamine hippurate 1 g oral tablet, 1 gram(s)= 1 tab(s), Oral, qDay metoprolol tartrate 25 mg oral tablet, 25 mg= 1 tab(s), Oral, BID Pepcid 40 mg oral tablet, 40 mg= 1 tab(s), Oral, qDay potassium chloride 20 mEq oral tablet, extended release, 20 mEq= 1 tab(s), Oral, TID valACYclovir 500 mg oral tablet, 500 mg= 1 tab(s), Oral, qDay venlafaxine 150 mg oral capsule, extended release, 150 mg= 1 cap(s), Oral, qDay Vitamin C 1000 mg oral tablet, 1000 mg= 1 tab(s), Oral, qDay Xarelto 10 mg oral tablet, 10 mg= 1 tab(s), Oral, qDay Allergies penicillin (Rash) Neurontin (Vomiting) morphine (Cramping) sulfa drug Social History Smoking Status - 07/06/2018 Current every day smoker Alcohol - Low Risk, 09/16/2017 Use: Past., 07/18/2019 Employment/School Status: Unemployed., 03/07/2020 Exercise Days per week: 1-2 times/week., 03/07/2020 Home/Environment Domestic Concerns: Denies. Living situation: Home/Independent. 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 Lives In: 1st floor bedroom, 1st floor bathroom, 2 steps to enter home . Current Home Treatments every Tuesday INR checks . Professional Skilled Services or Special Community Resources None. Financial concerns: No. Marital Status: Unmarried., 05/29/2021 Nutrition/Health Type of diet: Regular. Appetite Good. Eating Difficulties None. Enteral Feedings No. TPN Feedings No. Skin Breakdown No. Caffeine intake amount: soda x 2 servings / daily., 05/29/2021 Substance Abuse - Denies Substance Abuse, 06/16/2017 Use: Past. Type: Prescription medications., 04/06/2021 Use: Past. Type: Used suboxone recently in drug rehab., 11/08/2019 Tobacco - High Risk, 01/04/2019 Tobacco Use: use a vape pen uses it daily. Type: Electronic Cigarettes., 01/25/2019 Family History HTN - Hypertension: Mother. Heart disease: Father. Hyperlipidemia: Mother. Immunizations No qualifying data available. [1] CT Abdomen/Pelvis w/o Contrast; KWAME MAO MD 06/17/2022 05:59 EDT Digitally Signed by MI MAYS on 06/18/2022 09:38 AM [id number] Note Date 06/18/2022 Chief complaint Transition plan. Transitional action points Patient seen today, explained role of transition team, verbalizes understanding She is with significant other This is her third hospitalization in the last she states that they were all essentially for different things Currently she is admitted with left lower quadrant abdominal pain, possible GI bleed and history offactor V. Patient endorses no difficulty ambulating, no use of assistive equipment. I do feel transition team can sign off at this time, will only follow if significantly prolonged hospitalization as underlying conditions noted Assessment/plan Left lower quadrant abdominal pain Rectal bleed History of GI bleed Factor V Readmission risk points Left lower quadrant abdominal pain Rectal bleed History of GI bleed Factor V High risk medication/Xarelto Rehospitalization's History of present illness 46-year-old female with past medical history significant for small bowel obstruction, CVA, DVT/PE and factor V Leiden syndrome on Xarelto. Patient admitted for abdominal pain and rectal bleeding. This is patient's third hospitalization, recently discharged on 05/25 from [facility]. Evelyn ent lives with significant other, one-story home. Patient states up ambulating in room without difficulty. Review of symptoms General: denies fever chills HEENT: denies blurry vision, headache, congestion Respiratory: denies shortness of breath or cough Cardio: denies chest pain or palpitations GI: Complaining of abdominal pain Musculoskeletal: denies injury Neuro: denies dizziness or confusion Psych: denies depression or anxiety Physical exam General: no acute distress, sitting up in bed, obese HEENT: oral mucosa moist, eyes following movement Skin: Intact Extremities: No lower extremity edema, pulses present Musculoskeletal: Weakness present Neurological: No tremors or focal deficit Psych: Mood cooperative, alert and oriented Vital signs [id number] (00:56) Systolic Blood [id number] (00:56) Diastolic Blood Dcnlequj67 (00:56) Pulse85 (00:56) SpO2No result Respiratory Rate18 (03:59) Problem list/past medical history History of ESBL E. coli infection Anxiety Chronic constipation Chronic diastolic HF (heart failure) Clotting disorder DVT - Deep vein thrombosis Depression Dyslipidemia Dyspnea on exertion Dysuria Edema Elevated fasting glucose Factor V deficiency GI bleed Hallucinations Ischemic colitis Major depressive disorder, severe Migraine Mouth pain Palpitation Pancreatitis Partial seizure Psychosis Pulmonary emboli Screening for breast cancer Screening for ischemic heart disease Seizure disorder Small bowel obstruction Stroke Tobacco use Vitamin D deficiency Weight gain High blood pressure Elevated liver enzymes Preoperative clearance Bipolar 1 disorder History of MRSA infection Procedure/surgical history Prescription event monitorin08/31/20 Cardiovascular stress testin08/07/20 Cardiovascular stress testin08/07/20 Cardiac echo: 02/14/20 Cardiac echo: 01/20/18 Cardiac echo: 01/17/18 Abdominal hysterectomy section Appendectomy Cholecystectomy section Filter Tonsillectomy ERCP Medication List Active Medications Ordered acetaminophen: 650 mg, 2 tab(s), Oral, q4h, PRN: Pain, scale 1-3. acetaminophen: 650 mg, 2 tab(s), Oral, q4h, PRN: TEMP greater than 38.6 degrees Celsius. acetaminophen-oxyCODONE: 1 tab(s), Oral, q4h, PRN: Pain, scale 4-6. albuterol-ipratropium: 3 mL, Inhalation, q4hRT, PRN: Shortness of breath or wheezing. buPROPion: 150 mg, 1 tab(s), Oral, BID. busPIRone: 10 mg, 1 tab(s), Oral, TID. famotidine: 40 mg, 1 tab(s), Oral, qDay. HYDROmorphone: 1 mg, 1 mL, IV Push, q4h, PRN: Pain, scale 7-10. lacosamide: 200 mg, 2 tab(s), Oral, qPM. lacosamide: 100 mg, 1 tab(s), Oral, qAM. lactulose: 10 gram(s), 15 mL, Oral, qDay. melatonin: 3 mg, 1 tab(s), Oral, qHS, PRN: Sleep. methenamine: 1 gram(s), 1 tab(s), Oral, qDay. ondansetron: 4 mg, 2 mL, IV Push, q4h, PRN: Nausea/Vomiting. ondansetron: 4 mg, 1 tab(s), Oral, q6h, PRN: Nausea/Vomiting. pantoprazole: 40 mg, IV Push, q12h. Sodium Chloride 0.9% intravenous solution 1,000 mL: 100 mL/hr, Intravenous. valACYclovir: 500 mg, 1 tab(s), Oral, qDay. venlafaxine: 150 mg, 1 cap(s), Oral, qDayM. Documented acetaminophen: 500 mg, 1 tab(s), Oral, qDay, PRN: as needed for pain. APAP/butalbital/caffeine: 1-2 caps, Oral, q4h, PRN: as needed for headache. ascorbic acid: 1,000 mg, 1 tab(s), Oral, qDay. buPROPion: 150 mg, 1 tab(s), Oral, BID. busPIRone: 10 mg, 1 tab(s), Oral, TID. cholecalciferol: 1,250 mcg, 1 cap(s), Oral, Tuesday. clonazePAM: 0.5 mg, 1 tab(s), Oral, qDay, PRN: Anxiety. clonazePAM: 0.5 mg, 1 tab(s), Oral, qDay, PRN: Seizures. cloNIDine: 0.2 mg, 1 tab(s), Oral, BID. famotidine: 40 mg, 1 tab(s), Oral, qDay. furosemide: 40 mg, 1 tab(s), Oral, qDay. ibuprofen: 400 mg, 2 tab(s), Oral, qDay, PRN: as needed for pain. lacosamide: 100 mg, 1 tab(s), Oral, qAM. lacosamide: 200 mg, 2 tab(s), Oral, qPM. lactulose: 10 gram(s), 15 mL, Oral, qDay. linaclotide: 290 mcg, 1 cap(s), Oral, qDay. magnesium oxide: 400 mg, 1 tab(s), Oral, qDay. methenamine: 1 gram(s), 1 tab(s), Oral, qDay. metoprolol: 25 mg, 1 tab(s), Oral, BID. potassium chloride: 20 mEq, 1 tab(s), Oral, TID. rivaroxaban: 10 mg, 1 tab(s), Oral, qDay. valACYclovir: 500 mg, 1 tab(s), Oral, qDay. venlafaxine: 150 mg, 1 cap(s), Oral, qDay. Medications Inactivated in the Last 72 Hours APAP/butalbital/caffeine: 1 tab(s), Oral, q4h, for 7 day(s), PRN: as needed, 30 tab(s), 0 Refill(s). ascorbic acid: 1,000 mg, 1 tab(s), Oral, qHS. buPROPion: 150 mg, 1 tab(s), Oral, BID, for 30 day(s), 60 tab(s), 1 Refill(s). busPIRone: 10 mg, 1 tab(s), Oral, TID, for 30 day(s), PRN: Anxiety, 90 tab(s), 0 Refill(s). cholecalciferol: 1,250 mcg, 1 cap(s), Oral, qWeek, 12 cap(s), 0 Refill(s). clonazePAM: 0.5 mg, 1 tab(s), Oral, PRN: Other (see order comments), 0 Refill(s). cloNIDine: 0.2 mg, 1 tab(s), Oral, qHS, 180 tab(s), 5 Refill(s). cloNIDine: 0.2 mg, 1 tab(s), Oral, BID. cloNIDine: 0.2 mg, 1 tab(s), Oral, BID. famotidine: 40 mg, 1 tab(s), Oral, BID, for 14 day(s), 28 tab(s), 0 Refill(s). furosemide: 40 mg, 1 tab(s), Oral, qDay, for 90 day(s), 90 tab(s), 0 Refill(s). furosemide: 40 mg, 1 tab(s), Oral, qDay. HYDROmorphone: Miscellaneous, Once. HYDROmorphone: 0.5 mg, 0.5 mL, IV Push, Once. HYDROmorphone: 0.5 mg, 0.5 mL, Intramuscular, Once. HYDROmorphone: 1 mg, 1 mL, IV Push, now. HYDROmorphone: 0.5 mg, 0.5 mL, IV Push, Once. ketorolac: 30 mg, 1 mL, IV Push, Once. lacosamide: 100 mg, 1 tab(s), Oral, qAM, 0 Refill(s). lacosamide: 200 mg, 1 tab(s), Oral, qHS. lactulose: 10 gram(s), 15 mL, Oral, Daily, for 30 day(s), 450 mL, 0 Refill(s). linaclotide: 290 mcg, 1 cap(s), Oral, qDay, Replaces 30 day rx sent, 90 cap(s), 3 Refill(s). magnesium oxide: 400 mg, 1 tab(s), Oral, Daily. melatonin: 10 mg, 1 tab(s), Oral, qHS, PRN: as needed for insomnia, 200 tab(s), 0 Refill(s). methenamine: 1 gram(s), 1 tab(s), Oral, qHS, take 1 tablet by mouth once daily WITH VITAMIN C 1000MG FOR URINARY TRACT INFECTION PREVENTION. metoprolol: 25 mg, 1 tab(s), Oral, BID, 180 tab(s), 3 Refill(s). metoprolol: 25 mg, 1 tab(s), Oral, BID. metoprolol: 25 mg, 1 tab(s), Oral, BID. morphine: 4 mg, 1 mL, IV Push, Once. morphine: 4 mg, 1 mL, IV Push, Once. nitrofurantoin: 100 mg, 1 cap(s), Oral, qDay, Take with food, PRN: Other (see order comments), 30 cap(s), 2 Refill(s). ondansetron: 4 mg, 2 mL, IV Push, Once. ondansetron: Miscellaneous, Once. ondansetron: 4 mg, 1 tab(s), Oral, Once. ondansetron: 4 mg, 2 mL, IV Push, Once. ondansetron: 4 mg, 2 mL, IV Push, Once. pantoprazole: 40 mg, 10 mL, IV Push, Once. potassium chloride: 60 mEq, 3 tab(s), Oral, qDay, for 90 day(s), 270 tab(s), 1 Refill(s). rivaroxaban: 10 mg, 1 tab(s), Oral, qDay, 90 tab(s), 0 Refill(s). Sodium Chloride 0.9% intravenous solution: 1,000 mL, IV Bolus, Once. Sodium Chloride 0.9% intravenous solution: 1,000 mL, IV Bolus, Once. valACYclovir: 500 mg, 1 tab(s), Oral, qDay, 90 tab(s), 0 Refill(s). venlafaxine: 150 mg, 1 cap(s), Oral, qDay, for 90 day(s), 90 cap(s), 0 Refill(s). venlafaxine: 150 mg, 1 cap(s), Oral, qDay. Allergies Penicillin Neurontin Morphine Sulfa drug Social history Alcohol Risk Assessment: Low Risk; Details: Use: Past. Employment/School Details: Status: Unemployed. Exercise Details: Days per week: 1-2 times/week. Home/Environment Details: Domestic Concerns: Denies. Living situation: Home/Independent. 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 Lives In: 1st floor bedroom, 1st floor bathroom, 2 steps to enter home . Current Home Treatments every Tuesday INR checks . Professional Skilled Services or Special Community ResourcesNone. Financial concerns: No. Marital Status: Unmarried. Nutrition/Health Details: Type of diet: Regular. Appetite Good. Eating Difficulties None. Enteral Feedings No. TPN Feedings No. Skin Breakdown No. Caffeine intake amount: soda x 2 servings / daily. Substance Abuse Risk Assessment: Denies Substance Abuse; Details: Use: Past. Type: Prescription medications. Details: Use: Past. Type: Used suboxone recently in drug rehab. Tobacco Risk Assessment: High Risk; Details: Tobacco Use: use a vape pen uses it daily. Type: Electronic Cigarettes. Family medical history Mother: HTN - Hypertension; Hyperlipidemia Father: Heart disease Code Status Code Status - Ordered -- 06/17/22 13:26:00 EDT, Full Code, Constant Order I, Priyanka KIRK, personally performed the services described in this documentation, as scribed by, Andi Arvizu RN in my presence and it is both accurate and complete. Digitally Signed by PRIYANKA ORR on 06/18/2022 06:02 PM [id number] History and physical note Date of Service June 17, 2022 Chief Complaint Abdominal pain, rectal bleed History of Present Illness 46-year-old female with past medical history significant for seizure disorder, CVA, DVT/PE, factor V Leiden syndrome on Xarelto, GI bleed in 2017 who presents due to rectal bleed. Patient indicates that she started experiencing left lower quadrant abdominal pain and nausea started yesterday. She indicates that she also had several episodes of rectal bleed with blood and mucus. Patient hated that the left lower quadrant abdominal pain was similar to the pain that she was experiencing on 05/24 whenshe was admitted to [place] for small bowel obstruction. Patient indicated that since her discharge on 05/25 she did not have any recurrence of left lower quadrant abdominal pain until yesterday. Patient endorses nausea without emesis. She denies any melena. Patient indicates that she has been experiencing epigastric abdominal pain chronically for months and had plans to have this evaluated as an outpatient by gastroenterology. Patient does note history of GI bleed. She indicates that she had anepisode 5 years ago and indicates that she had an endoscopy and colonoscopy at that time but is unsu re of the results. Patient indicates that this was done up at a [facility] [place]. Patient denies any recurrent GI bleed since then and has remained on Xarelto. Patient indicates that last doseof Xarelto was on 06/15. At presentation to the ED, patient hemodynamically stable, afebrile, and saturating 96% plus on room air. Patient's hemoglobin is 13. Urinalysis unremarkable. Urine test negative. Patient is mild elevation alkaline phosphatase and ALT. She does have positive occult stool. CT abdomen/pelvis demonstrates minimal haziness surrounding the proximal duodenum likely reflecting mild duodenitis.Patient also has mildly distended degenerative which may present ileus or residual distention from dilated small bowel seen on 05/24 imaging. Patient admitted for further work-up and treatment. Review of Systems Constitutional: Denies fevers, chills, malaise. Eyes: Denies vision changes, dryness, pain, or photophobia. Ears, Nose, Mouth & Throat: Denies sore throat, dysphagia, or odynophagia. Cardiovascular: Denies chest pain, palpitations. Denies edema. Respiratory: Denies shortness of breath, dyspnea on exertion, or cough Gastrointestinal: As per HPI Genitourinary: Denies dysuria, changes in frequency or urgency Musculoskeletal: Denies joint pain, or joint swelling. Skin: Denies erythema, pruritus, rash Neurological: Denies history of syncope or seizure Psychiatric: Endorses history of depression/anxiety. Denies suicidal or homicidal ideations Endocrine: Denies heat or cold intolerance, no history of diabetes. Hematologic/Lymphatic: Denies history of anemia. No easy bruising or bleeding. Allergic/Immunologic: Denies history of allergic reaction, pruritus. No history of immunological disorder. Physical Exam Vitals and Measurements T: 36.6 C (Oral) HR: 79 RR: 18 BP: 121/81 SpO2: 96% WT: 98 kg Weight Dosing Weight: 98 kg (06/17/22) General Appearance: Alert, oriented, well appearing Head: Normocephalic, atraumatic EENT: PERRLA, EOMI. Mucus membranes moist Neck: Supple, no JVD Cardiac: Regular rate and rhythm. Normal S1/S2. No murmurs appreciated. Lungs: Lungs clear to auscultation bilaterally. No rhonchi, wheezing, or rales appreciated. Abdomen: Soft, left lower quadrant tenderness to palpation, nondistended. BS *4. Musculoskeletal: Strength 5/5 bilaterally in upper and lower extremities. Extremities: No LE edema. Neurological: AO*3, CN 2-12 intact. Skin: No excoriations, lacerations, rash, or erythema Psychiatric: Normal affect Lab Results 06/17 11:26 WBC: 8.7 Hgb: 13.0 Hct: 38.8 Platelet: 334 Neutrophil %: 57.3 Protime: 13.0 PT International Ratio: 1.1 Glucose Level: 98 Sodium Level: 142 Potassium Level: 3.9 BUN: 10.0 Creatinine Lvl (s): 0.83 Imaging Results and Diagnostics (06/17/2022 05:[address] Abdomen/Pelvis w/o Contrast) IMPRESSION: Minimal haziness within the fat surrounding the proximal duodenum and pancreatic head with adjacent lymphadenopathy. These findings could reflect mild duodenitis versus mild acute interstitial edematous pancreatitis. Recommend correlation with lipase level. Air-fluid levels in mildly distended but not dilated jejunum. This may represent ileus or residual do distension from diet late it loops that were seen on 05/24/2022. [1] Assessment/Plan Left lower quadrant abdominal pain Rectal bleed History of GI bleed History of factor V Leiden syndrome on Xarelto History of CVA History of DVT/PE Patient presents with 1 day history of left lower quadrant abdominal pain and rectal bleed. Patient CT abdomen/pelvis at presentation demonstrates possible duodenitis as well as possible ileus. Patient is experiencing nausea but no emesis. We will start her on clear liquid diet. Hold patient's home Xarelto in the setting of rectal bleed. Hemoglobin currently within normal limits. Monitor for active bleeding and change in hemoglobin overnight. Patient has follow-up with gastroenterology as an outpatient on 06/21. If patient does not have any active bleeding or change in hemoglobin likely does not warrant inpatient endoscopy or colonoscopy. Discussed plan of care with patient. We will ask gas troenterology to evaluate. Patient on Protonix IV. CODE STATUS: Full code DVT prophylaxis: SCDs GI prophylaxis: Protonix Problem List/Past Medical History Ongoing Anxiety Chronic constipation Chronic diastolic HF (heart failure) Clotting disorder Depression DVT - Deep vein thrombosis Dyslipidemia Dyspnea on exertion Dysuria Edema Elevated fasting glucose Factor V deficiency GI bleed Hallucinations History of ESBL E. coli infection Ischemic colitis Major depressive disorder, severe Migraine Palpitation Pancreatitis Psychosis Pulmonary emboli Screening for breast cancer Screening for ischemic heart disease Seizure disorder Small bowel obstruction Stroke Vitamin D deficiency Weight gain Historical Bipolar 1 disorder Elevated liver enzymes High blood pressure History of MRSA infection Preoperative clearance Procedure/Surgical History Prescription event monitorin08/31/20 Cardiovascular stress testin08/07/20 Cardiovascular stress testin08/07/20 Cardiac echo: 02/14/20 Cardiac echo: 01/20/18 Cardiac echo: 01/17/18 Abdominal hysterectomy section Appendectomy Cholecystectomy section Filter Tonsillectomy ERCP Medications Home Medications (22) Active APAP/butalbital/caffeine 325-50-40 mg oral tablet (Fioricet) 1 tab(s), PRN, Oral, q4h buPROPion 150 mg/12 hours (SR) oral tablet, extended release 150 mg = 1 tab(s), Oral, BID busPIRone 10 mg oral tablet 10 mg = 1 tab(s), PRN, Oral, TID cholecalciferol 1250 mcg (50,000 intl units) oral capsule 1,250 mcg = 1 cap(s), Oral, qWeek cloNIDine 0.2 mg oral tablet 0.2 mg = 1 tab(s), Oral, qHS furosemide 40 mg oral tablet 40 mg = 1 tab(s), Oral, qDay KlonoPIN 0.5 mg oral tablet 0.5 mg = 1 tab(s), PRN, Oral lactulose 10 g/15 mL oral syrup 10 gram(s) = 15 mL, Oral, Daily Linzess 290 mcg oral capsule 290 mcg = 1 cap(s), Oral, qDay Lopressor 25mg--USE metoprolol tartrate 25 mg oral tablet 25 mg = 1 tab(s), Oral, BID magnesium oxide 400 mg oral tablet 400 mg = 1 tab(s), Oral, Daily melatonin 10 mg oral tablet 10 mg = 1 tab(s), PRN, Oral, qHS methenamine hippurate 1 g oral tablet 1 gram(s) = 1 tab(s), Oral, qHS nitrofurantoin macrocrystals-monohydrate 100 mg oral capsule 100 mg = 1 cap(s), PRN, Oral, qDay Pepcid 40 mg oral tablet 40 mg = 1 tab(s), Oral, BID potassium chloride 20 mEq oral tablet, extended release 60 mEq = 3 tab(s), Oral, qDay valACYclovir 500 mg oral tablet 500 mg = 1 tab(s), Oral, qDay venlafaxine 150 mg oral capsule, extended release 150 mg = 1 cap(s), Oral, qDay Vimpat 100 mg oral tablet 100 mg = 1 tab(s), Oral, qAM Vimpat 200 mg oral tablet 200 mg = 1 tab(s), Oral, qHS Vitamin C 1000 mg oral tablet 1,000 mg = 1 tab(s), Oral, qHS Xarelto 10 mg oral tablet 10 mg = 1 tab(s), Oral, qDay Allergies penicillin (Rash) Neurontin (Vomiting) morphine (Cramping) sulfa drug Social History Smoking Status - 07/06/2018 Current every day smoker Alcohol - Low Risk, 09/16/2017 Use: Past., 07/18/2019 Employment/School Status: Unemployed., 03/07/2020 Exercise Days per week: 1-2 times/week., 03/07/2020 Home/Environment Domestic Concerns: Denies. Living situation: Home/Independent. 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 Lives In: 1st floor bedroom, 1st floor bathroom, 2 steps to enter home . Current Home Treatments every Tuesday INR checks . Professional Skilled Services or Special Community Resources None. Financial concerns: No. Marital Status: Unmarried., 05/29/2021 Nutrition/Health Type of diet: Regular. Appetite Good. Eating Difficulties None. Enteral Feedings No. TPN Feedings No. Skin Breakdown No. Caffeine intake amount: soda x 2 servings / daily., 05/29/2021 Substance Abuse - Denies Substance Abuse, 06/16/2017 Use: Past. Type: Prescription medications., 04/06/2021 Use: Past. Type: Used suboxone recently in drug rehab., 11/08/2019 Tobacco - High Risk, 01/04/2019 Tobacco Use: use a vape pen uses it daily. Type: Electronic Cigarettes., 01/25/2019 Family History HTN - Hypertension: Mother. Heart disease: Father. Hyperlipidemia: Mother. Immunizations No qualifying data available. Code Status Code Status - Ordered -- 06/17/22 13:26:00 EDT, Full Code, Constant Order [1] CT Abdomen/Pelvis w/o Contrast; KWAME MAO MD 06/17/2022 05:59 EDT Digitally Signed by JUWAN BELTRAN MD on 06/17/2022 06:29 PM [id number] Evaluation + Plan noteExtracted from: Title:History and Physical Author:GISELL BELTRAN MD Date:06/17/22 Left lower quadrant abdomina l pain Rectal bleed History of GI bleed History of factor V Leiden syndrome on Xarelto History of CVA History of DVT/PE Patient presents with 1 day history of left lower quadrant abdominal pain and rectal bleed. Patient CT abdomen/pelvis at presentation demonstrates possible duodenitis as well as possible ileus. Patient is experiencing nausea but no emesis. We will start her on clear liquid diet. Hold patient's home Xarelto in the setting of rectal bleed. Hemoglobin currently within normal limits. Monitor for active bleeding and change in hemoglobin overnight. Patient has follow-up with gastroenterology as an outpatient on 06/21. If patient does not have any active bleeding or change in hemoglobin likely does not warrant inpatient endoscopy or colonoscopy. Discussed plan of care with patient. We will ask gastroenterology to evaluate. Patient on Protonix IV. CODE STATUS: Full code DVT prophylaxis: SCDs GI prophylaxis: Protonix Future Appointments Appointment Date:06/29/2022 01:30:00 PM Scheduled Provider:CJ RIVERA Location:[facility] Appointment Type:Telehealth Future Scheduled Tests Laboratory* Basic Metabolic Panel 06/30/21 * Calcium Level Ionized 07/06/21 * Magnesium Level 07/06/21 * Phosphorus Level 07/06/21 * Lipid Profile 06/09/22 * Lipid Profile 06/23/21 * Prealbumin 07/06/21 * PTH, Intact 07/06/21 * Vitamin D Level 06/09/22 * Complete Metabolic Panel 06/09/22 * Complete Metabolic Panel 07/06/21 * N-Terminal proBNP 08/20/21 [facility] 09-29-2022 Hospital Discharge instructions Patient Education 06/17/2022 08:04:37 Abdominal Pain, Unknown Cause, (Female) Unknown Causes of Abdominal Pain (Female) The exact cause of your belly (abdominal) pain is not clear. This does not mean that this is something to worry about. Everyone likes to know the exact cause of the problem. But sometimes with belly pain, there is no clear-cut cause, and this could be a good thing. The good news is that your symptoms can be treated, and you will feel better. Your condition does not seem serious now. But sometimes the signs of a serious problem may take more time to appear. For this reason, it is important for you to watch for any new symptoms, problems, or worsening of your condition. Over the next few days, the abdominal pain may come and go. Or it may be constant. Other common symptoms can include nausea and vomiting. Sometimes it can be difficult to tell if you feel nauseous. You may just feel bad and not connect that feeling to nausea. Constipation, diarrhea, and a fever maygo along with the pain. The pain may continue even if treated correctly over the following days. Depending on how things go, sometimes the cause can become clear and may need more or different treatment. Additional evaluations, medicines, or tests may also be needed. Home care Your healthcare provider may prescribe medicine for pain, symptoms, or an infection. Follow the healthcare provider's instructions for taking these medicines. General care Rest as much as you can until your next exam. No strenuous activities. Try to find positions that ease discomfort. A small pillow placed on the abdomen may help relieve pain. Something warm on your abdomen (such as a heating pad) may help, but be careful not to burn yourself. Diet Don t force yourself to eat, especially if having cramps, vomiting, or diarrhea. Water is important so you don't get dehydrated. Soup may also be good. Sports drinks may also help,especially if they are not too acidic. Don't drink sugary drinks as this can make things worse. Take liquids in small amounts. Don t guzzle them. Caffeine sometimes makes the pain and cramping worse. Don t take dairy products if you have vomiting or diarrhea. Don't eat large amounts at a time. Wait a few minutes between bites. Eat a diet low in fiber (called a low-residue diet). Foods allowed include refined breads, white rice, fruit and vegetable juices without pulp, tender meats. These foods will pass more easily throughthe intestine. Don t have whole-grain foods, whole fruits and vegetables, meats, seeds and nuts, fried or fatty foods, dairy, alcohol and spicy foods until your symptoms go away. Follow-up care Follow up with your healthcare provider, or as advised, if your pain does not begin to improve in the next 24 hours. Call 911 Call 911 if any of these occur: Trouble breathing Confusion Fainting or loss of consciousness Rapid heart rate Seizure When to seek medical advice Call your healthcare provider right away if any of these occur: Pain gets worse or moves to the right lower abdomen New or worsening vomiting or diarrhea Swelling of the abdomen Unable to pass stool for more than 3 days Fever of 100.4 F (38 C) or higher, or as directed by your healthcare provider. Blood in vomit or bowel movements (dark red or black color) Yellow color of eyes and skin (jaundice) Weakness, dizziness Chest, arm, back, neck, or jaw pain Unexpected vaginal bleeding or missed period Can't keep down liquids or water and you are getting dehydrated [id number] [employer]. [address] [place] [address]. All rights reserved. This information is not intended as a substitute for professional medical care. Always follow yourhealthcare professional's instructions. Follow Up Care 06/17/2022 04:00:02 With:CJ RIVERA Address: [address] [place] [address] [phone] When:2-4 days [facility] 09-29-2022 Emergency department Discharge summary Discharge Instructions Thank you for allowing [facility] to assist you with your healthcare needs. The following is importantdischarge information regarding your hospital visit. Diagnosis from Today's Visit Abdominal pain What to Do Next Instructions from Your Care Team No qualifying data available. Post Acute Orders No qualifying data available. You Need to Schedule the Following Appointments Follow Up with CJ RIVERA When Within 2-4 days Where: [place] [address]- [phone] Allergies penicillin (Rash) Neurontin (Vomiting) morphine (Cramping) sulfa drug Medications Please ask your primary doctor or pharmacist before taking any other medication not listed, including over the counter drugs, herbal medications, vitamins and or supplements as they may interact withyour home medications. What How Much When Instructions Last Dose Unchanged APAP/ butalbital/ caffeine (APAP/ butalbital/ caffeine 325-50-40 mg oral tablet (Fioricet)) 1 tab(s) by mouth Every 4 hours as needed for as needed Duration: 7 Days Unchanged ascorbic acid (Vitamin C 1000 mg oral tablet) 1 tab(s) by mouth Daily at bedtime Unchanged buPROPion (buPROPion 150 mg/ 12 hours (SR) oral tablet, extended release) 1 tab(s) by mouth Two (2) times a day Duration: 30 Days Unchanged busPIRone (busPIRone 10 mg oral tablet) 1 tab(s) by mouth Three (3) times a day as needed for Anxiety Duration: 30 Days Unchanged cholecalciferol (cholecalciferol 1250 mcg (50,000 intl units) oral capsule) 1 cap by mouth Every week Unchanged clonazePAM (KlonoPIN 0.5 mg oral tablet) 1 tab(s) by mouth As needed for Other (see order comments) Unchanged cloNIDine (cloNIDine 0.2 mg oral tablet) 1 tab(s) by mouth Daily at bedtime Unchanged famotidine (Pepcid 40 mg oral tablet) 1 tab(s) by mouth Two (2) times a day Duration: 14 Days Unchanged furosemide (furosemide 40 mg oral tablet) 1 tab(s) by mouth Once a day Duration: 90 Days Unchanged lacosamide (Vimpat 100 mg oral tablet) 1 tab(s) by mouth Once a day (in the morning) Unchanged lacosamide (Vimpat 200 mg oral tablet) 1 tab(s) by mouth Daily at bedtime Unchanged lactulose (lactulose 10 g/ 15 mL oral syrup) 15 Milliliter by mouth Every day Duration: 30 Days Unchanged linaclotide (Linzess 290 mcg oral capsule) 1 cap by mouth Once a day Replaces 30 day rx sent Unchanged magnesium oxide (magnesium oxide 400 mg oral tablet) 1 tab(s) by mouth Every day Unchanged melatonin (melatonin 10 mg oral tablet) 1 tab(s) by mouth Daily at bedtime as needed for as needed for insomnia Unchanged methenamine (methenamine hippurate 1 g oral tablet) 1 tab(s) by mouth Daily at bedtime take 1 tablet by mouth once daily WITH VITAMIN C 1000MG FOR URINARY TRACT INFECTION PREVENTION Unchanged metoprolol (Lopressor 25mg--USE metoprolol tartrate 25 mg oral tablet) 1 tab(s) by mouth Two (2) times a day Unchanged nitrofurantoin (nitrofurantoin macrocrystals-monohydrate 100 mg oral capsule) 1 cap by mouth Once a day as needed for Other (see order comments) Take with food Unchanged potassium chloride (potassium chloride 20 mEq oral tablet, extended release) 3 tab(s) by mouth Once a day Duration: 90 Days Unchanged rivaroxaban (Xarelto 10 mg oral tablet) 1 tab(s) by mouth Once a day Unchanged valACYclovir (valACYclovir 500 mg oral tablet) 1 tab(s) by mouth Once a day Unchanged venlafaxine (venlafaxine 150 mg oral capsule, extended release) 1 cap by mouth Once a day Duration: 90 Days Please take this list to your next doctor s visit. Bring all medications you take, including over the counter medications, herbals and other supplements with you to your doctor s visit. Patients and families are reminded to discard old lists and to update any records with all medication providers or retail pharmacies. Education Materials Unknown Causes of Abdominal Pain (Female) The exact cause of your belly (abdominal) pain is not clear. This does not mean that this is something to worry about. Everyone likes to know the exact cause of the problem. But sometimes with belly pain, there is no clear-cut cause, and this could be a good thing. The good news is that your symptoms can be treated, and you will feel better. Your condition does not seem serious now. But sometimes the signs of a serious problem may take more time to appear. For this reason, it is important for you to watch for any new symptoms, problems, or worsening of your condition. Over the next few days, the abdominal pain may come and go. Or it may be constant. Other common symptoms can include nausea and vomiting. Sometimes it can be difficult to tell if you feel nauseous. You may just feel bad and not connect that feeling to nausea. Constipation, diarrhea, and a fever maygo along with the pain. The pain may continue even if treated correctly over the following days. Depending on how things go, sometimes the cause can become clear and may need more or different treatment. Additional evaluations, medicines, or tests may also be needed. Home care Your healthcare provider may prescribe medicine for pain, symptoms, or an infection. Follow the healthcare provider's instructions for taking these medicines. General care Rest as much as you can until your next exam. No strenuous activities. Try to find positions that ease discomfort. A small pillow placed on the abdomen may help relieve pain. Something warm on your abdomen (such as a heating pad) may help, but be careful not to burn yourself. Diet Don t force yourself to eat, especially if having cramps, vomiting, or diarrhea. Water is important so you don't get dehydrated. Soup may also be good. Sports drinks may also help,especially if they are not too acidic. Don't drink sugary drinks as this can make things worse. Take liquids in small amounts. Don t guzzle them. Caffeine sometimes makes the pain and cramping worse. Don t take dairy products if you have vomiting or diarrhea. Don't eat large amounts at a time. Wait a few minutes between bites. Eat a diet low in fiber (called a low-residue diet). Foods allowed include refined breads, white rice, fruit and vegetable juices without pulp, tender meats. These foods will pass more easily throughthe intestine. Don t have whole-grain foods, whole fruits and vegetables, meats, seeds and nuts, fried or fatty foods, dairy, alcohol and spicy foods until your symptoms go away. Follow-up care Follow up with your healthcare provider, or as advised, if your pain does not begin to improve in the next 24 hours. Call 911 Call 911 if any of these occur: Trouble breathing Confusion Fainting or loss of consciousness Rapid heart rate Seizure When to seek medical advice Call your healthcare provider right away if any of these occur: Pain gets worse or moves to the right lower abdomen New or worsening vomiting or diarrhea Swelling of the abdomen Unable to pass stool for more than 3 days Fever of 100.4 F (38 C) or higher, or as directed by your healthcare provider. Blood in vomit or bowel movements (dark red or black color) Yellow color of eyes and skin (jaundice) Weakness, dizziness Chest, arm, back, neck, or jaw pain Unexpected vaginal bleeding or missed period Can't keep down liquids or water and you are getting dehydrated [id number] [employer]. [address] [place] [address], [place] [address]. All rights reserved. This information is not intended as a substitute for professional medical care. Always follow yourhealthcare professional's instructions. Additional Information VACCINATE! IT SAVES LIVES! Members of the community who have not yet received the COVID-19 vaccine and would like to receive it can visit one of [facility] vaccine clinics. There are many vaccine clinic locations within the [facility]. For locations and available times, please visit [email or web address]. It is important to note that some COVID mobile vaccine clinics are held outdoors and may be canceled in rainy orstormy conditions. To learn more about pediatric vaccinations (ages 5-11), we invite you to visit the [facility] webpage. [email or web address] learn more about the COVID-19 vaccine, we invite you to visit the [facility] website for a list of frequently asked questions. [email or web address] [facility] Patient Portal Access Instructions: Stay connected with your healthcare team and access your personal medical information anytime with the [facility] Patient Portal. If you would like a full copy of your medical records please contact the [facility] Medical Records Department Tuesday through Tuesday between 8a.m. and 4:30p.m. Please follow the directions below to access the portal: 1.Access the email account you provided upon registration to the hospital.2.Look for an invitation email from [facility].3.Open the email and access the invitation link: Accept Invitation to [facility]4.Fill in the required azul to create your account. Sign into [email or web address] with your username and password that you created in the above steps to stay up to date. You can then view a summary of results, a summary of your visits, and the ability to download your summaries to your computer or send the information securely to a physician. Remember that your healthcare information is confidential, so carefully consider who you will allow to register on the [facility] Patient Portal for access to your information. You can also access the [facility] Patient Portal on the [employer]. Simply click on Health Records under HealthData and then click on the [employer] logo. HOW TO SAFELY DISPOSE OF PRESCRIPTION MEDICATIONS Please use one of the following methods to safely dispose of your unused medications. 1.Use a drug disposal kit: the drug disposal pouch allows you to safely discard your old and unuseddrugs. Ask your nurse to give you one when you are discharged.2.Visit a local take-back location: Many local pharmacies and police departments have programs that collect old and unwanted prescriptiondrugs. Call your local pharmacy or go to http://[employer].CMGE/[email or web address] to find one close to you.3.Make use of household items: Use cat litter or old coffee grounds to dispose medications if other options arenot available. Mix your drugs with these household products, seal them in an airtight container andthrow it into the garbage. Call [facility]: [phone] to be sure your drugs can be disposed of in this way. Some medicines may require a different approach.4.Never flush your medications down the toilet. IF YOU HAVE BEEN PRESCRIBED AN OPIOIDS FOR PAIN If you have been prescribed an opioid (such as hydrocodone, oxycodone or morphine), it is critical to understand the possible side effects and risks of opioid pain medications. Even when taken as directed, opioids can have several side effects including: Tolerance, meaning you might need to take more of a medication for the same pain relief. Nausea, vomiting and/or constipation. Sleepiness, dizziness, dry mouth, confusion, depression or itching. Physical dependence, meaning you have withdrawal symptoms when a medication is stopped ? this can develop within a few days. KNOW YOUR RESPONSIBILITIES It is important to know exactly how much and how often to take the opioid pain medications you are prescribed. Never take opioids in higher amounts or more often than prescribed. Do not combine opioids with alcohol or other drugs that cause drowsiness, such as benzodiazepines, also known as benzos,including diazepam and alprazolam, muscle relaxants or sleep aids. Never sell or share prescriptionopioids. This is illegal. Store opioids in a secure place and out of reach of others (including children, family, friends and visitors). The last page(s) of this document has been signed and retained as a CHART COPY Signatures Patient Education Materials Abdominal Pain, Unknown Cause, (Female) Medication Leaflets My discharge plan and instructions have been reviewed and explained to me and I,MATY DOROTHEA M understand my current condition and have read and understand these discharge instructions. I have received a written copy of the plan/instructions. If I have questions, I am aware that I should contact my doctor. 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 Multiplanar reformatted images are provided for review. Automated exposure control, iterative reconstruction, and/or weight based adjustment of the mA/kV was utilized to reduce the radiation dose to as low as reasonably achievable. COMPARISON: CT abdomen pelvis 05/24/2022 HISTORY: ORDERING SYSTEM PROVIDED HISTORY: Reason for Exam: abdominal pain Left lower quadrant abdominal pain. History of cholecystectomy, appendectomy and hysterectomy FINDINGS: No acute osseous abnormality. Tiny fat containing umbilical hernia. Unchanged partially visualized, partially calcified solid right middle lobe pulmonary nodule measuring about 4 mm, on image 1 of series 2. There is an additional calcified nodule at the lingula. Otherwise included lung bases are clear. The gallbladder surgically absent. The liver, spleen, pancreas and both adrenal glands are unremarkable. No renal calculi. No hydronephrosis. No ureteral calculi. No focal bladder wall thickening. The uterus is surgically absent. There is very minimal haziness within the fat surrounding the duodenum and head of the pancreas. There are few prominent lymph nodes in this area which measure up to 1.3 cm on image 49 of series 2. There is mild wall thickening of the 1st portion of the duodenum although this could relate to under distension. The small bowel is normal caliber without evidence of inflammatory change. There are several air-fluid levels in the proximal half of the small intestine this segment of small bowel of is dilated on previous exam on 05/24/2022. The sigmoid colon is redundant. Moderate amount of stool throughout the colon. No inflammatory change of the colon. The appendix is surgically absent by history. No free air or free fluid. The aorta is normal caliber. IMPRESSION: Minimal haziness within the fat surrounding the proximal duodenum and pancreatic head with adjacent lymphadenopathy. These findings could reflect mild duodenitis versus mild acute interstitial edematous pancreatitis. Recommend correlation with lipase level. Air-fluid levels in mildly distended but not dilated jejunum. This may represent ileus or residual do distension from diet late it loops that were seen on 05/24/2022. Other chronic and incidental findings as described above. I have personally reviewed the images of this examination, and agree with the resident's findings and interpretation. Interpreted by: Kwame Mao MD Preliminary Report By: Judy Dorsey Electronically signed By Kwame Mao MD Dictated Date: 06/17/2022 6:34:12 AM Prelim Date: 06/17/2022 6:46:36 AM Sign Date: 06/17/2022 6:53:48 AM Ordering Provider: THANG [facility]09-29-2022 Note ORIGINAL EXAMINATION: CT OF THE ABDOMEN AND PELVIS WITHOUT CONTRAST 06/17/2022 5:59 am TECHNIQUE: CT of the abdomen and pelvis was performed without the administration of intravenous contrast. Multiplanar reformatted images are provided for review. Automated exposure control, iterative reconstruction, and/or weight based adjustment of the mA/kV was utilized to reduce the radiation dose to as low as reasonably achievable. COMPARISON: CT abdomen pelvis 05/24/2022 HISTORY: ORDERING SYSTEM PROVIDED HISTORY: Reason for Exam: abdominal pain Left lower quadrant abdominal pain. History of cholecystectomy, appendectomy and hysterectomy FINDINGS: No acute osseous abnormality. Tiny fat containing umbilical hernia. Unchanged partially visualized, partially calcified solid right middle lobe pulmonary nodule measuring about 4 mm, on image 1 of series 2. There is an additional calcified nodule at the lingula. Otherwise included lung bases are clear. The gallbladder surgically absent. The liver, spleen, pancreas and both adrenal glands are unremarkable. No renal calculi. No hydronephrosis. No ureteral calculi. No focal bladder wall thickening. The uterus is surgically absent. There is very minimal haziness within the fat surrounding the duodenum and head of the pancreas. There are few prominent lymph nodes in this area which measure up to 1.3 cm on image 49 of series 2. There is mild wall thickening of the 1st portion of the duodenum although this could relate to under distension. The small bowel is normal caliber without evidence of inflammatory change. There are several air-fluid levels in the proximal half of the small intestine this segment of small bowel of is dilated on previous exam on 05/24/2022. The sigmoid colon is redundant. Moderate amount of stool throughout the colon. No inflammatory change of the colon. The appendix is surgically absent by history. No free air or free fluid. The aorta is normal caliber. IMPRESSION: Minimal haziness within the fat surrounding the proximal duodenum and pancreatic head with adjacent lymphadenopathy. These findings could reflect mild duodenitis versus mild acute interstitial edematous pancreatitis. Recommend correlation with lipase level. Air-fluid levels in mildly distended but not dilated jejunum. This may represent ileus or residual do distension from diet late it loops that were seen on 05/24/2022. Other chronic and incidental findings as described above. I have personally reviewed the images of this examination, and agree with the resident's findings and interpretation. Interpreted by: Kwame Mao MD Preliminary Report By: Judy Dorsey Electronically signed By Kwame Mao MD Dictated Date: 06/17/2022 6:34:12 AM Prelim Date: 06/17/2022 6:46:36 AM Sign Date: 06/17/2022 6:53:48 AM Ordering Provider: THANG [facility]09-26-2022 Miscellaneous Notes* Telephone Encounter - Sarah Osorio PA-C - 06/14/2022 9:33 AM EDT The following approved medication requests have been transmitted electronically. Requested Prescriptions Signed Prescriptions Disp Refills clonazePAM (KLONOPIN) 0.5 mg tablet 10 tablet 0 Sig: Take one tablet as needed for prolonged convulsive seizure or cluster or 3 or more seizures in24 hours. Do not exceed more than 1 tablet per day. 10 tablets per 30 days. Authorizing Provider: SARAH OSORIO PA-C [facility] Evaluation + Plan note Future Scheduled Tests Laboratory* Lipid Profile 06/09/22 * Vitamin D Level 06/09/22 * Complete Metabolic Panel 06/09/22 [facility] 08-18-2022 Miscellaneous Notes* Telephone Encounter - Sin Kirby APRN.CNP - 05/06/2022 2:37 PM EDT The following approved medication requests have been transmitted electronically. Requested Prescriptions Signed Prescriptions Disp Refills lacosamide (VIMPAT) 100 mg tab 270 tablet 1 Si tab in am and 2 tabs in pm Authorizing Provider: SIN KIRBY clonazePAM (KLONOPIN) 0.5 mg tablet 10 tablet 0 Sig: Take one tablet as needed for prolonged convulsive seizure or cluster or 3 or more seizures in24 hours. Do not exceed more than 1 tablet per day. 10 tablets per 30 days. Authorizing Provider: SIN KIRBY APRN.CNP [facility] Miscellaneous Notes* Telephone Encounter - Alaina Tomlin APRN.CNP - 04/13/2022 9:44 AM EDT The following approved medication requests have been transmitted electronically. Signed Prescriptions Disp Refills clonazePAM (KLONOPIN) 0.5 mg tablet 10 tablet 0 Sig: Take one tablet as needed for prolonged convulsive seizure or cluster or 3 or more seizures in24 hours. Do not exceed more than 1 tablet per day. 10 tablets per 30 days. RICCARDO Class: C-IV GREG: No Authorizing Provider: ALAINA TOMLIN APRN.CNP [facility] Hospital Discharge instructions Patient Education 04/12/2022 12:58:36 Back Pain (Acute or Chronic) Back Pain (Acute or Chronic) Back pain is one of the most common problems. The good news is that most people feel better in 1 to2 weeks, and most of the rest in 1 to 2 months. Most people can remain active. People who have pain describe it differently not everyone is the same. The pain can be sharp, stabbing, shooting, aching, cramping or burning. Movement, standing, bending, lifting, sitting, or walking may worsen pain. It can be localized to one spot or area, or it can be more generalized. It can spread or radiate upwards, to the front, or go down your arms or legs (sciatica). It can cause muscle spasm. Most of the time, mechanical problems with the muscles or spine cause the pain. Mechanical problemsare usually caused by an injury to the muscles or ligaments. While illness can cause back pain, it is usually not caused by a serious illness. Mechanical problems include: Physical activity such as sports, exercise, work, or normal activity Overexertion, lifting, pushing, pulling incorrectly or too aggressively Sudden twisting, bending, or stretching from an accident, or accidental movement Poor posture Stretching or moving wrong, without noticing pain at the time Poor coordination, lack of regular exercise (check with your doctor about this) Spinal disc disease or arthritis Stress Pain can also be related to , or illness like appendicitis, bladder or kidney infections, pelvic infections, and many other things. Acute back pain usually gets better in 1 to 2 weeks. Back pain related to disk disease, arthritis in the spinal joints or spinal stenosis (narrowing of the spinal canal) can become chronic and last for months or years. Unless you had a physical injury (for example, a car accident or fall) X-rays are usually not needed for the initial evaluation of back pain. If pain continues and does not respond to medical treatment, X-rays and other tests may be needed. Home care Try these home care recommendations: When in bed, try to find a position of comfort. A firm mattress is best. Try lying flat on your back with pillows under your knees. You can also try lying on your side with your knees bent up towardsyour chest and a pillow between your knees. At first, do not try to stretch out the sore spots. If there is a strain, it is not like the good soreness you get after exercising without an injury. In this case, stretching may make it worse. Don't sit for long periods, as in a long car ride or during other travel. This puts more stress on the lower back than standing or walking. During the first 24 to 72 hours after an acute injury or flare up of chronic back pain, apply an ice pack to the painful area for 20 minutes and then remove it for 20 minutes. Do this over a period of 60 to 90 minutes or several times a day. This will reduce swelling and pain. Wrap the ice pack in a thin towel or plastic to protect your skin. You can start with ice, then switch to heat. Heat (hot shower, hot bath, or heating pad) reduces pain and works well for muscle spasms. Heat can be applied to the painful area for 20 minutes then remove it for 20 minutes. Do this over a period of 60 to 90 minutes or several times a day. Do not sleep on a heating pad. It can lead to skin bassett or tissue damage. You can alternate ice and heat therapy. Talk with your doctor about the best treatment for your back pain. Therapeutic massage can help relax the back muscles without stretching them. Be aware of safe lifting methods and do not lift anything without stretching first. Medicines Talk to your doctor before using medicine, especially if you have other medical problems or are taking other medicines. You may use groj-war-ptitfny medicine as directed on the bottle to control pain, unless another pain medicine was prescribed. If you have chronic conditions like diabetes, liver or kidney disease, stomach ulcers, or gastrointestinal bleeding, or are taking blood thinners, talk to your doctor beforetaking any medicine. Be careful if you are given a prescription medicines, narcotics, or medicine for muscle spasms. They can cause drowsiness, affect your coordination, reflexes, and judgement. Do not drive or operate heavy machinery. Follow-up care Follow up with your healthcare provider, or as advised. A radiologist will review any X-rays that were taken. Your provide will notify you of any new findings that may affect your care. Call 911 Call 911 if any of the following occur: Trouble breathing Confusion Very drowsy or trouble awakening Fainting or loss of consciousness Rapid or very slow heart rate Loss of bowel or bladder control When to seek medical advice Call your healthcare provider right away if any of these occur: Pain becomes worse or spreads to your legs Weakness or numbness in one or both legs Numbness in the groin or genital area [id number] [employer]. [address] [place] [address], [place] [address]. All rights reserved. This information is not intended as a substitute for professional medical care. Always follow yourhealthcare professional's instructions. Follow Up Care 04/12/2022 10:48:06 With:CJ RIVERA Address: [place] [address] [phone] When:2-4 days [facility] 07-25-2022 Note Discharge Instructions Thank you for allowing [facility] to assist you with your healthcare needs. The following is importantdischarge information regarding your hospital visit. Diagnosis from Today's Visit Back pain Urinary frequency What to Do Next Instructions from Your Care Team No qualifying data available. Post Acute Orders No qualifying data available. You Need to Schedule the Following Appointments Follow Up with CJ RIVERA When Within 2-4 days Where: [place] [address] [phone] Allergies penicillin (Rash) Neurontin (Vomiting) morphine (Cramping) sulfa drug Medications Please ask your primary doctor or pharmacist before taking any other medication not listed, including over the counter drugs, herbal medications, vitamins and or supplements as they may interact withyour home medications. What How Much When Instructions Last Dose Unchanged ascorbic acid (Vitamin C 1000 mg oral tablet) 1 tab(s) by mouth Daily at bedtime Unchanged buprenorphine (Sublocade 300 mg/ 1.5 mL subcutaneous solution, extended release) 300 Milligram Intramuscular Once a month Unchanged cholecalciferol (cholecalciferol 1250 mcg (50,000 intl units) oral capsule) 1 cap by mouth Every week Unchanged clonazePAM (KlonoPIN 0.5 mg oral tablet) 1 tab(s) by mouth As needed for Other (see order comments) Unchanged cloNIDine (cloNIDine 0.2 mg oral tablet) 1 tab(s) by mouth Two (2) times a day Unchanged dicyclomine (dicyclomine 10 mg oral capsule) 1 cap by mouth Four (4) times a day Duration: 5 Days Unchanged dicyclomine (dicyclomine 20 mg oral tablet) 1 tab(s) by mouth Four (4) times a day as needed for abdominal discomfort Unchanged famotidine (Pepcid 40 mg oral tablet) 1 tab(s) by mouth Two (2) times a day Duration: 14 Days Unchanged furosemide (furosemide 40 mg oral tablet) 1 tab(s) by mouth Once a day Unchanged hydroCHLOROthiazide (hydroCHLOROthiazide 25 mg oral tablet) 1 tab(s) by mouth Once a day Unchanged lacosamide (Vimpat 100 mg oral tablet) 1 tab(s) by mouth Once a day (in the morning) Unchanged lacosamide (Vimpat 200 mg oral tablet) 1 tab(s) by mouth Daily at bedtime Unchanged linaclotide (Linzess 290 mcg oral capsule) 1 cap by mouth Once a day Replaces 30 day rx sent Unchanged magnesium oxide 400 Milligram by mouth Once a day Unchanged melatonin 10 Milligram by mouth Daily at bedtime Unchanged methenamine (methenamine hippurate 1 g oral tablet) 1 tab(s) by mouth Daily at bedtime take 1 tablet by mouth once daily WITH VITAMIN C 1000MG FOR URINARY TRACT INFECTION PREVENTION Unchanged metoprolol (Lopressor 25mg--USE metoprolol tartrate 25 mg oral tablet) 1 tab(s) by mouth Two (2) times a day Unchanged nitrofurantoin (nitrofurantoin macrocrystals-monohydrate 100 mg oral capsule) 1 cap by mouth Once a day as needed for Other (see order comments) Take with food Unchanged ondansetron (ondansetron 4 mg oral tablet) 1 tab(s) by mouth Every 8 hours as needed for Nausea/Vomiting Duration: 7 Days Unchanged potassium chloride (potassium chloride 20 mEq oral tablet, extended release) 2 tab(s) by mouth Three (3) times a day Duration: 30 Days Unchanged rivaroxaban (Xarelto 10 mg oral tablet) 1 tab(s) by mouth Once a day Unchanged spironolactone (spironolactone 25 mg oral tablet) 1 tab(s) by mouth Once a day Unchanged valACYclovir (valACYclovir 500 mg oral tablet) 1 tab(s) by mouth Once a day One time refill in absence of PCP Unchanged venlafaxine (venlafaxine 150 mg oral capsule, extended release) 1 cap by mouth Once a day Duration: 90 Days one time refill in absence of PCP Unchanged zonisamide (zonisamide 100 mg oral capsule) 4 cap by mouth Once a day Please take this list to your next doctor s visit. Bring all medications you take, including over the counter medications, herbals and other supplements with you to your doctor s visit. Patients and families are reminded to discard old lists and to update any records with all medication providers or retail pharmacies. Education Materials Back Pain (Acute or Chronic) Back pain is one of the most common problems. The good news is that most people feel better in 1 to2 weeks, and most of the rest in 1 to 2 months. Most people can remain active. People who have pain describe it differently not everyone is the same. The pain can be sharp, stabbing, shooting, aching, cramping or burning. Movement, standing, bending, lifting, sitting, or walking may worsen pain. It can be localized to one spot or area, or it can be more generalized. It can spread or radiate upwards, to the front, or go down your arms or legs (sciatica). It can cause muscle spasm. Most of the time, mechanical problems with the muscles or spine cause the pain. Mechanical problemsare usually caused by an injury to the muscles or ligaments. While illness can cause back pain, it is usually not caused by a serious illness. Mechanical problems include: Physical activity such as sports, exercise, work, or normal activity Overexertion, lifting, pushing, pulling incorrectly or too aggressively Sudden twisting, bending, or stretching from an accident, or accidental movement Poor posture Stretching or moving wrong, without noticing pain at the time Poor coordination, lack of regular exercise (check with your doctor about this) Spinal disc disease or arthritis Stress Pain can also be related to , or illness like appendicitis, bladder or kidney infections, pelvic infections, and many other things. Acute back pain usually gets better in 1 to 2 weeks. Back pain related to disk disease, arthritis in the spinal joints or spinal stenosis (narrowing of the spinal canal) can become chronic and last for months or years. Unless you had a physical injury (for example, a car accident or fall) X-rays are usually not needed for the initial evaluation of back pain. If pain continues and does not respond to medical treatment, X-rays and other tests may be needed. Home care Try these home care recommendations: When in bed, try to find a position of comfort. A firm mattress is best. Try lying flat on your back with pillows under your knees. You can also try lying on your side with your knees bent up towardsyour chest and a pillow between your knees. At first, do not try to stretch out the sore spots. If there is a strain, it is not like the good soreness you get after exercising without an injury. In this case, stretching may make it worse. Don't sit for long periods, as in a long car ride or during other travel. This puts more stress on the lower back than standing or walking. During the first 24 to 72 hours after an acute injury or flare up of chronic back pain, apply an ice pack to the painful area for 20 minutes and then remove it for 20 minutes. Do this over a period of 60 to 90 minutes or several times a day. This will reduce swelling and pain. Wrap the ice pack in a thin towel or plastic to protect your skin. You can start with ice, then switch to heat. Heat (hot shower, hot bath, or heating pad) reduces pain and works well for muscle spasms. Heat can be applied to the painful area for 20 minutes then remove it for 20 minutes. Do this over a period of 60 to 90 minutes or several times a day. Do not sleep on a heating pad. It can lead to skin bassett or tissue damage. You can alternate ice and heat therapy. Talk with your doctor about the best treatment for your back pain. Therapeutic massage can help relax the back muscles without stretching them. Be aware of safe lifting methods and do not lift anything without stretching first. Medicines Talk to your doctor before using medicine, especially if you have other medical problems or are taking other medicines. You may use anzd-ufn-gldewsd medicine as directed on the bottle to control pain, unless another pain medicine was prescribed. If you have chronic conditions like diabetes, liver or kidney disease, stomach ulcers, or gastrointestinal bleeding, or are taking blood thinners, talk to your doctor beforetaking any medicine. Be careful if you are given a prescription medicines, narcotics, or medicine for muscle spasms. They can cause drowsiness, affect your coordination, reflexes, and judgement. Do not drive or operate heavy machinery. Follow-up care Follow up with your healthcare provider, or as advised. A radiologist will review any X-rays that were taken. Your provide will notify you of any new findings that may affect your care. Call 911 Call 911 if any of the following occur: Trouble breathing Confusion Very drowsy or trouble awakening Fainting or loss of consciousness Rapid or very slow heart rate Loss of bowel or bladder control When to seek medical advice Call your healthcare provider right away if any of these occur: Pain becomes worse or spreads to your legs Weakness or numbness in one or both legs Numbness in the groin or genital area [id number] [employer]. [address] [place] [address]. All rights reserved. This information is not intended as a substitute for professional medical care. Always follow yourhealthcare professional's instructions. Additional Information VACCINATE! IT SAVES LIVES! Members of the community who have not yet received the COVID-19 vaccine and would like to receive it can visit one of [facility] vaccine clinics. There are many vaccine clinic locations within the [facility]. For locations and available times, please visit [email or web address]. It is important to note that some COVID mobile vaccine clinics are held outdoors and may be canceled in rainy orstormy conditions. To learn more about pediatric vaccinations (ages 5-11), we invite you to visit the [facility] webpage. [email or web address] learn more about the COVID-19 vaccine, we invite you to visit the [facility] website for a list of frequently asked questions. [email or web address] [facility] Patient Portal Access Instructions: Stay connected with your healthcare team and access your personal medical information anytime with the [facility] Patient Portal. If you would like a full copy of your medical records please contact the [facility] Medical Records Department Tuesday through Tuesday between 8a.m. and 4:30p.m. Please follow the directions below to access the portal: 1.Access the email account you provided upon registration to the [facility].2.Look for an invitation email from [facility].3.Open the email and access the invitation link: Accept Invitation to [facility]4.Fill in the required azul to create your account. Sign into [email or web address] with your username and password that you created in the above steps to stay up to date. You can then view a summary of results, a summary of your visits, and the ability to download your summaries to your computer or send the information securely to a physician. Remember that your healthcare information is confidential, so carefully consider who you will allow to register on the [facility] Patient Portal for access to your information. You can also access the [facility] Patient Portal on the [employer]. Simply click on Health Records under [employer] and then click on the [employer] logo. HOW TO SAFELY DISPOSE OF PRESCRIPTION MEDICATIONS Please use one of the following methods to safely dispose of your unused medications. 1.Use a drug disposal kit: the drug disposal pouch allows you to safely discard your old and unuseddrugs. Ask your nurse to give you one when you are discharged.2.Visit a local take-back location: Many local pharmacies and police departments have programs that collect old and unwanted prescriptiondrugs. Call your local pharmacy or go to http://[employer].CMGE/4L0Qq1o to find one close to you.3.Make use of household items: Use cat litter or old coffee grounds to dispose medications if other options arenot available. Mix your drugs with these household products, seal them in an airtight container andthrow it into the garbage. Call [facility]: [phone] to be sure your drugs can be disposed of in this way. Some medicines may require a different approach.4.Never flush your medications down the toilet. IF YOU HAVE BEEN PRESCRIBED AN OPIOIDS FOR PAIN If you have been prescribed an opioid (such as hydrocodone, oxycodone or morphine), it is critical to understand the possible side effects and risks of opioid pain medications. Even when taken as directed, opioids can have several side effects including: Tolerance, meaning you might need to take more of a medication for the same pain relief. Nausea, vomiting and/or constipation. Sleepiness, dizziness, dry mouth, confusion, depression or itching. Physical dependence, meaning you have withdrawal symptoms when a medication is stopped ? this can develop within a few days. KNOW YOUR RESPONSIBILITIES It is important to know exactly how much and how often to take the opioid pain medications you are prescribed. Never take opioids in higher amounts or more often than prescribed. Do not combine opioids with alcohol or other drugs that cause drowsiness, such as benzodiazepines, also known as benzos,including diazepam and alprazolam, muscle relaxants or sleep aids. Never sell or share prescriptionopioids. This is illegal. Store opioids in a secure place and out of reach of others (including children, family, friends and visitors). The last page(s) of this document has been signed and retained as a CHART COPY Signatures Patient Education Materials Back Pain (Acute or Chronic) Medication Leaflets My discharge plan and instructions have been reviewed and explained to me and IMATY AMANDA M understand my current condition and have read and understand these discharge instructions. I have received a written copy of the plan/instructions. If I have questions, I am aware that I should contact my doctor. 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 Sometimes the cause can't be determined. If your condition does not seem serious, and your pain does not appear to be coming from your heart, your healthcare provider may recommend watching it closely. Sometimes the signs of a serious problem take moretime to appear. Many problems not related to your heart can cause chest pain. These include: Musculoskeletal. Costochondritis is an inflammation of the tissues around the ribs that can occur from trauma or overuse injuries, or a strain of the muscles of the chest wall Respiratory. Pneumonia, collapsed lung (pneumothorax), or inflammation of the lining of the chest and lungs (pleurisy) Gastrointestinal. Esophageal reflux, heartburn, ulcers, or gallbladder disease Anxiety and panic disorders Nerve compression and inflammation Rare miscellaneous problems such as aortic aneurysm (a swelling of the large artery coming out of the heart) or pulmonary embolism (a blood clot in the lungs) Home care After your visit, follow these recommendations: Rest today and avoid strenuous activity. Take any prescribed medicine as directed. Be aware of any recurrent chest pain and notice any changes Follow-up care Follow up with your healthcare provider if you do not start to feel better within 24 hours, or as advised. Call 911 Call 911 if any of these occur: A change in the type of pain: if it feels different, becomes more severe, lasts longer, or begins to spread into your shoulder, arm, neck, jaw or back Shortness of breath or increased pain with breathing Weakness, dizziness, or fainting Rapid heart beat Crushing sensation in your chest When to seek medical advice Call your healthcare provider right away if any of the following occur: Cough with dark colored sputum (phlegm) or blood Fever of 100.4 F (38 C) or higher, or as directed by your healthcare provider Swelling, pain or redness in one leg [id number] [employer]. [address] [place] [address]. All rights reserved. This information is not intended as a substitute for professional medical care. Always follow yourhealthcare professional's instructions. Follow Up Care 02/11/2022 18:24:39 With:[facility] Address: [address] [facility] [place] [address] [phone] When:2-4 days [facility] 05-17-2022 Hospital Discharge instructions Patient Education 02/02/2022 21:21:00 Abdominal Pain Abdominal Pain Abdominal pain is pain in the stomach or belly area. Everyone has this pain from time to time. In many cases it goes away on its own. But abdominal pain can sometimes be due to a serious problem, such as appendicitis. So it s important to know when to get help. Causes of abdominal pain There are many possible causes of abdominal pain. Common causes in adults include: Constipation, diarrhea, or gas Stomach acid flowing back up into the esophagus (acid reflux or heartburn) Severe acid reflux, called GERD (gastroesophageal reflux disease) A sore in the lining of the stomach or small intestine (peptic ulcer) Inflammation of the gallbladder, liver, or pancreas Gallstones or kidney stones Appendicitis Intestinal blockage An internal organ pushing through a muscle or other tissue (hernia) Urinary tract infections In women, menstrual cramps, fibroids, ovarian cysts, pelvic inflammatory disease, or endometriosis Inflammation or infection of the intestines, including Crohn's disease and ulcerative colitis Irritable bowel syndrome Diagnosing the cause of abdominal pain Your healthcare provider will give you a physical exam help find the cause of your pain. If needed,you will have tests. Belly pain has many possible causes. So it can be hard to find the reason for your pain. Giving details about your pain can help. Tell your provider where and when you feel the pain, and what makes it better or worse. Also let your provider know if you have other symptoms such as: Fever Tiredness Upset stomach (nausea) Vomiting Changes in bathroom habits Blood in the stool or black, tarry stool Weight loss that you can't explain (involuntary weight loss?) Also report any family history of stomach or intestinal problems, or cancers. Tell your provider about all your alcohol use and drug use. Tell your provider about all medicines you use, including herbs, vitamins, and supplements. Treating abdominal pain Some causes of pain need emergency medical treatment right away. These include appendicitis or a bowel blockage. Other problems can be treated with rest, fluids, or medicines. Your healthcare provider can give you specific instructions for treatment or self-care based on what is causing your pain. If you have vomiting or diarrhea, sip water or other clear fluids. When you are ready to eat solid foods again, start with small amounts of ooyf-so-fkobjl, low- fat foods. These include apple sauce, toast, or crackers. When to get medical care Call 911 or go to the hospital right away if you: Can t pass stool and are vomiting Are vomiting blood or have bloody diarrhea or black, tarry diarrhea Have chest, neck, or shoulder pain Feel like you might pass out Have pain in your shoulder blades with nausea Have sudden, severe belly pain Have new, severe pain unlike any you have felt before Have a belly that is rigid, hard, and hurts to touch Call your healthcare provider if you have: Pain for more than 5 days Bloating for more than 2 days Diarrhea for more than 5 days A fever of 100.4 F (38 C) or higher, or as directed by your healthcare provider Pain that gets worse Weight loss for no reason Continued lack of appetite Blood in your stool How to prevent abdominal pain Here are some tips to help prevent abdominal pain: Eat smaller amounts of food at each meal. Don't eat greasy, fried, or other high-fat foods. Don't eat foods that give you gas. Exercise regularly. Drink plenty of fluids. To help prevent GERD symptoms: Quit smoking. Reduce alcohol and foods that increase stomach acid. Don't use aspirin or muiu-htp-glnimum pain and fever medicines, if possible. This includes nonsteroidal anti-inflammatory drugs (NSAIDs). Lose excess weight. Finish eating at least 2 hours before you go to bed or lie down. Raise the head of your bed. [id number] [employer]. [address] [place] [address]. All rights reserved. This information is not intended as a substitute for professional medical care. Always follow yourhealthcare professional's instructions. Follow Up Care 02/02/2022 18:33:19 With:CJ RIVERA APRN-[facility] Address: [address] [facility] [address] [facility] [place] [address]- [phone] When:2-4 days [facility] 04-12-2022 Miscellaneous Notes* Telephone Encounter - Sin Kirby APRN.CNP - 12/29/2021 7:58 AM EDT The following approved medication requests have been transmitted electronically. Signed Prescriptions Disp Refills clonazePAM (KLONOPIN) 0.5 mg tablet 10 tablet 0 Sig: Take one tablet as needed for prolonged convulsive seizure or cluster or 3 or more seizures in24 hours. Do not exceed more than 1 tablet per day. 10 tablets per 30 days. RICCARDO Class: C-IV GREG: No Authorizing Provider: SIN KIRBY APRN.[facility] Discharge instructions Patient Education 10/28/2021 09:59:53 Arthralgia Arthralgia Arthralgia is the term for pain in or around the joint. It is a symptom, not a disease. This pain may involve one or more joints. In some cases, the pain moves from joint to joint. There are many causes for joint pain. These include: Injury Osteoarthritis (wearing out of the joint surface) Gout (inflammation of the joint due to crystals in the joint fluid) Infection inside the joint Bursitis (inflammation of the fluid-filled sacs around the joint) Autoimmune disorders such as rheumatoid arthritis or lupus Tendonitis (inflammation of chords that attach muscle to bone) Home care Rest the involved joint(s) until your symptoms improve. You may be prescribed pain medicine. If none is prescribed, you may use acetaminophen or ibuprofen to control pain and inflammation. Follow-up care Follow up with your healthcare provider or as advised. When to seek medical advice Contact your healthcare provider right away if any of the following occurs: Pain, swelling, or redness of joint increases Pain worsens or recurs after a period of improvement Pain moves to other joints You cannot bear weight on the affected joint You cannot move the affected joint Joint appears deformed New rash appears Fever of 100.4 F (38 C) or higher, or as directed by your healthcare provider [id number] [employer]. [address] [place] [address]. All rights reserved. This information is not intended as a substitute for professional medical care. Always follow yourhealthcare professional's instructions. 10/28/2021 09:59:38 Dehydration Dehydration The human body is comprised largely of water. If you lose more fluids than you take in, you can become dehydrated. This means there are not enough fluids in your body for it to function right. Mild dehydration can cause weakness, confusion, or muscle cramps. In extreme cases, it can lead to brain damage and even . That's why prompt treatment is crucial. Risk factors Anyone can become dehydrated. But infants, children, and older adults are at greatest risk. You aremost likely to lose fluids with severe vomiting, diarrhea, or a fever. Exercising or working hard especially in hot weather can also cause excess fluid loss. What to do Drinking liquids is the best way to prevent dehydration. Water is best, but juice or frozen pops can also help. For adults, don't use liquids that contain caffeine or alcohol to rehydrate. Your doctor may suggest electrolyte solutions for sick infants and young children. When to go to the emergency room (ER) Go to an ER right away for these symptoms: Adults Very dark urine and little urine output Dizziness, weakness, confusion, fainting Children Sunken eyes Little or no urine output (for infants, no wet diaper in 8 hours) Very dark urine Skin that doesn't bounce back quickly when pinched Crying without tears Lethargy, decreased activity, or increased sleepiness What to expect in the emergency room Your blood pressure, temperature, and heart rate will be checked. You may have blood or urine tests. The main treatment for dehydration is fluids. You may be given these to drink. Or, you may receivethem through a vein in your arm. You also may be treated for diarrhea, vomiting, or a high fever. [id number] [employer]. [address] [place] [address]. All rights reserved. This information is not intended as a substitute for professional medical care. Always follow yourhealthcare professional's instructions. Follow Up Care 10/28/2021 08:29:25 With:JC RIVERA Address: [address] [facility] [address] [facility] [place] [address] [phone] Business (1) When:Within 1 Day(s) Comments:Keep your appointment as scheduled for tomorrow. [facility] 01-05-2022 Evaluation + Plan noteExtracted from: Title:History and Physical Author:JESSICA HARPER APRN-INVEST[employer] RELATIONS DIRECTOR Date:09/23/21 1. Nausea with vomiting 2. Hypokalemia 3. DVT - Deep vein thrombosis 4. Dyslipidemia 5. Seizure disorder 6. Stroke 7. Elevated liver enzymes 8. Chronic diastolic HF (heart failure) 9. Tobacco use Presented to the emergency department for persistent nausea, vomiting. This has been going on for approximately 2 weeks. Is correlated with her for Sublocade injection which was approximately 2 and half weeks ago. Patient was assured this is not a side effect. Symptoms of not improved, also complaining of abdominal cramping. CT the abdomen on 09/09/2021 demonstrated no acute abdominal process. Lipase was 107. Treating with IV antiemetics. I have reached out to her disaster or damage control specialist, Dr. Bae. Am awaiting a call back. Potassium on admission was 2.2, most likely secondary to diuretic use, persistent nausea, vomiting. Patient states she has not been able to take many of her home medications. Replacing with IV and oral supplementation. Currently takes potassium 20 MDQ twice daily at home. Will increase to 3 times daily. Magnesium level adequate at 2.6. 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 Patient used to be on Coumadin, but was recently switched to Xarelto. Continue here. History of seizure disorder, has not had a seizure in many years. Continue medications. History of CVA in the past without residual. Continue aspirin, Xarelto. Patient has chronic transaminitis. AST/ALT on admission was 46/80, this is her baseline. History of heart failure, most recent EF is 60 to 65%. Follows with cardiology. Continue home medications, watch electrolytes closely. History of tobacco use, patient states that she does vape. Will add nicotine patch. DVT prophylaxis: Xarelto CODE STATUS: Full code Plan of care discussed with patient at the bedside, she is agreeable with the above. Case discussed with collaborating physician Dr. Lynn Valdez. This dictation was performed using voice recognition software and may include grammatical and/or spelling errors. Orders: acetaminophen, Start: 09/22/21 23:08:00 EST, Dose = 650 mg, = 2 tab(s), Oral, q4h, PRN, TEMP greater than 38.6 degrees Celsius acetaminophen, Start: 09/22/21 23:08:00 EST, Dose = 650 mg, = 1 supp, Rectal, q4h, PRN, TEMP greater than 38.6 degrees Celsius acetaminophen, Start: 09/22/21 23:08:00 EST, Dose = 650 mg, = 2 tab(s), Oral, q4h, PRN, Pain, scale 1-3 ascorbic acid, Start: 09/23/21 22:00:00 EST, Dose = 1,000 mg, = 2 tab(s), Oral, qHS cholecalciferol, Start: 09/23/21 10:00:00 EST, Dose = 1,250 mcg, = 1 cap(s), Oral, qWeek cloNIDine, Start: 09/23/21 9:37:00 EST, Dose = 0.2 mg, = 2 tab(s), Oral, BID dicyclomine, Start: 09/23/21 9:37:00 EST, Dose = 20 mg, = 1 tab(s), Oral, QID, PRN, abdominal discomfort furosemide, Start: 09/23/21 9:37:00 EST, Dose = 40 mg, = 1 tab(s), Oral, BID hydrOXYzine, Start: 09/23/21 9:37:00 EST, Dose = 50 mg, = 2 tab(s), Oral, QID lacosamide, Start: 09/23/21 9:37:00 EST, Dose = 100 mg, = 1 tab(s), Oral, qDay lacosamide, Start: 09/23/21 22:00:00 EST, Dose = 200 mg, = 1 tab(s), Oral, qHS magnesium oxide, Start: 09/23/21 12:00:00 EST, Dose = 400 mg, Oral, qDay melatonin, Start: 09/23/21 22:00:00 EST, Dose = 10 mg, = 2 tab(s), Oral, qHS methenamine, Start: 09/23/21 22:00:00 EST, Dose = 1 gram(s), = 1 tab(s), Oral, qHS metoprolol, Start: 09/23/21 9:38:00 EST, Dose = 25 mg, = 1 tab(s), Oral, BID nicotine, Start: 09/23/21 12:00:00 EST, Dose = 1 patch(es), ER Film, Transdermal, q24h, 6 week(s), Stop: 11/03/21 12:00:00 EST nicotine (Nicoderm Patch REMOVAL), Start: 09/23/21 11:30:00 EST, Once nicotine (Nicoderm Patch REMOVAL), Start: 09/24/21 12:00:00 EST, q24h ondansetron, Start: 09/22/21 23:08:00 EST, Dose = 4 mg, = 2 mL, IV Push, q6h, PRN, Nausea/Vomiting pantoprazole, Start: 09/23/21 6:00:00 EST, Dose = 40 mg, IV Push, qDayAC, mL/hr, Infuse over: 2 minute(s), 0 polyethylene glycol 3350, Start: 09/23/21 9:38:00 EST, Dose = 17 gram(s), = 15 mL, Oral, BID potassium chloride, Start: 09/23/21 9:15:00 EST, Dose = 40 mEq, = 200 mL, IV Piggyback, Once, Stop: 09/23/21 9:15:00 EST, Rate: 50 mL/hr, Infuse over: 4 hour(s), 0 potassium chloride, Start: 09/23/21 11:12:00 EST, Dose = 20 mEq, = 2 cap(s), Oral, TID rivaroxaban, Start: 09/23/21 9:40:00 EST, Dose = 10 mg, = 1 tab(s), Oral, qDay, Indication for Use Treatment of VTE/PE ( Chronic) spironolactone, Start: 09/23/21 9:39:00 EST, Dose = 25 mg, = 1 tab(s), Oral, qDay zonisamide, Start: 09/23/21 9:40:00 EST, Dose = 400 mg, = 4 cap(s), Oral, qDay Ambulate Communication Order (continuous) Diet Order Intake and Output IV Catheter Insertion/Care Prn Adapter Pulse Oximeter - Intermittent Sequential Compression Device Application Vital Signs Future Appointments Appointment Date:09/30/2021 02:15:00 PM Scheduled Provider:CHAYITO DIAZ MD Location:[facility] Appointment Type:[facility] Hospital Follow-Up Appointment Date:10/21/2021 03:00:00 PM Scheduled Provider:CHAYITO DIAZ MD Location:[facility] Appointment Type:[facility] Diagnostic Tests Pending * Urine Culture 09/23/21 Future Scheduled Tests Laboratory* Basic Metabolic Panel 06/30/21 * Calcium Level Ionized 07/06/21 * Magnesium Level 07/06/21 * Phosphorus Level 07/06/21 * N-Terminal proBNP 08/20/21 * Lipid Profile 06/23/21 * Prealbumin 07/06/21 * PTH, Intact 07/06/21 * Complete Metabolic Panel 07/06/21 Radiology* MA Mammo Screening Bilateral w/ Awais 02/18/21 [facility] Sean Cammy 01-04-2022 Hospital Discharge instructions Patient Education 09/22/2021 18:35:24 Gastritis (Adult) Gastritis (Adult) Gastritis is inflammation and irritation of the stomach lining. You can have it for a short time (acute) or be long lasting (chronic). Infection with bacteria called H pylori most often causes gastritis. More than a third of people in the [place] have these bacteria in their bodies. In many cases, H pylori causes no problems or symptoms. In some people, though, the infection irritates the stomach lining and causes gastritis. H. pylori may be diagnosed through blood, stool, or breath tests, we well as through biopsy during an endoscopy. Other causes of stomach irritation include drinking alcohol, smoking or chewing tobacco, or taking pain-relieving medicines called NSAIDs (such as aspirin or ibuprofen). Certain drugs (such as cocaine) and immune conditions can also cause gastritis. Symptoms of gastritis can include: Belly pain or bloating Feeling full quickly Loss of appetite Nausea or vomiting Vomiting blood or having black stools Feeling more tired than usual An inflamed and irritated stomach lining is more likely to develop a sore called an ulcer. To help prevent this, gastritis should be treated. Home care If needed, our healthcare provider may prescribe medicines. If you have H pylori infection, treating it will likely relieve your symptoms. Other changes can help reduce stomach irritation and help itheal. If you have been prescribed medicines for H pylori infection, take them as directed. Take all of the medicine until it is finished or your healthcare provider tells you to stop, even if you feel better. Your healthcare provider may advise you not to take NSAIDs. If you take daily aspirin for your heart or other medical reasons, do not stop without talking to your healthcare provider first. Don't drink alcohol. Stop smoking. Smoking can irritate the stomach and delay healing. As much as possible, stay away from second hand smoke. Follow-up care Follow up with your healthcare provider, or as advised by our staff. You may need testing to check for inflammation or an ulcer. When to seek medical advice Call your healthcare provider for any of the following: Stomach pain that gets worse or moves to the lower right belly (appendix area) Chest pain that appears or gets worse, or spreads to the back, neck, shoulder, or arm Frequent vomiting (can t keep down liquids) Blood in the stool or vomit (red or black in color) Feeling weak or dizzy Shortness of breath Unexplained weight loss Fever of 100.4 F (38 C) or higher, or as directed by your healthcare provider [id number] [employer]. [address] [place] [address]. All rights reserved. This information is not intended as a substitute for professional medical care. Always follow yourhealthcare professional's instructions. Follow Up Care 09/22/2021 16:56:34 With:CHAYITO DIAZ MD Address: [address] [place] [id number] When:09/30/2021 14:15:00 Comments:This is your post-hospital follow-up appointment. [facility] 12-28-2021 NoteHNO ID: [id number] Author: Justin Montgomery APRN.[employer] RELATIONS DIRECTOR Service: ? Author Type: Nurse Practitioner Type: Progress Notes Filed: 09/15/2021 5:45 PM Note Text: Patient checked in at 5:28. This provider attempted to join zoom visit however patient not present in the zoom waiting room. Called patient and left VM at 5:35 stating the reason for the delay and asking to answer my call for a possible telephone visit instead. Call was made again at 5:37, 5:39, and at 5:42. Due to this matter, unfortunately the visit has to be rescheduled. Will route to S51 for assistance. Justin Montgomery APRN.IN[employer]STOR RELATIONS DIRECTOR 09/15/21 5:45 [facility]12-22-2021 Hospital Discharge instructions Patient Education 09/09/2021 14:19:04 Abdominal Pain Abdominal Pain Abdominal pain is pain in the stomach or belly area. Everyone has this pain from time to time. In many cases it goes away on its own. But abdominal pain can sometimes be due to a serious problem, such as appendicitis. So it s important to know when to get help. Causes of abdominal pain There are many possible causes of abdominal pain. Common causes in adults include: Constipation, diarrhea, or gas Stomach acid flowing back up into the esophagus (acid reflux or heartburn) Severe acid reflux, called GERD (gastroesophageal reflux disease) A sore in the lining of the stomach or small intestine (peptic ulcer) Inflammation of the gallbladder, liver, or pancreas Gallstones or kidney stones Appendicitis Intestinal blockage An internal organ pushing through a muscle or other tissue (hernia) Urinary tract infections In women, menstrual cramps, fibroids, ovarian cysts, pelvic inflammatory disease, or endometriosis Inflammation or infection of the intestines, including Crohn's disease and ulcerative colitis Irritable bowel syndrome Diagnosing the cause of abdominal pain Your healthcare provider will give you a physical exam help find the cause of your pain. If needed,you will have tests. Belly pain has many possible causes. So it can be hard to find the reason for your pain. Giving details about your pain can help. Tell your provider where and when you feel the pain, and what makes it better or worse. Also let your provider know if you have other symptoms such as: Fever Tiredness Upset stomach (nausea) Vomiting Changes in bathroom habits Blood in the stool or black, tarry stool Weight loss that you can't explain (involuntary weight loss?) Also report any family history of stomach or intestinal problems, or cancers. Tell your provider about all your alcohol use and drug use. Tell your provider about all medicines you use, including herbs, vitamins, and supplements. Treating abdominal pain Some causes of pain need emergency medical treatment right away. These include appendicitis or a bowel blockage. Other problems can be treated with rest, fluids, or medicines. Your healthcare provider can give you specific instructions for treatment or self-care based on what is causing your pain. If you have vomiting or diarrhea, sip water or other clear fluids. When you are ready to eat solid foods again, start with small amounts of oucj-fj-amaohy, low- fat foods. These include apple sauce, toast, or crackers. When to get medical care Call 911 or go to the hospital right away if you: Can t pass stool and are vomiting Are vomiting blood or have bloody diarrhea or black, tarry diarrhea Have chest, neck, or shoulder pain Feel like you might pass out Have pain in your shoulder blades with nausea Have sudden, severe belly pain Have new, severe pain unlike any you have felt before Have a belly that is rigid, hard, and hurts to touch Call your healthcare provider if you have: Pain for more than 5 days Bloating for more than 2 days Diarrhea for more than 5 days A fever of 100.4 F (38 C) or higher, or as directed by your healthcare provider Pain that gets worse Weight loss for no reason Continued lack of appetite Blood in your stool How to prevent abdominal pain Here are some tips to help prevent abdominal pain: Eat smaller amounts of food at each meal. Don't eat greasy, fried, or other high-fat foods. Don't eat foods that give you gas. Exercise regularly. Drink plenty of fluids. To help prevent GERD symptoms: Quit smoking. Reduce alcohol and foods that increase stomach acid. Don't use aspirin or pzem-eyd-skzrqad pain and fever medicines, if possible. This includes nonsteroidal anti-inflammatory drugs (NSAIDs). Lose excess weight. Finish eating at least 2 hours before you go to bed or lie down. Raise the head of your bed. [id number] [employer]. [address] [place] [address]. All rights reserved. This information is not intended as a substitute for professional medical care. Always follow yourhealthcare professional's instructions. Follow Up Care 09/09/2021 12:08:05 With:CJ RIVERA EMERGENCY PLANNING AND RESPONSE MANAGER-INVESTOR RELATIONS DIRECTOR Address: [phone] When:2-4 days [facility] 12-21-2021 NoteHNO ID: [id number] Author: Peri Segovia PSYD Service: ? Author Type: Psychologist Type: Progress Notes Filed: 09/08/2021 5:40 PM Note Text: [facility] CBT-Initiate Virtual Group September 08, 2021 Time: 3-4:30pm [id number]: Virtual Group Psychotherapy Providers: Juliette Leon and Swathi The CBT-Initiate virtual group is a one-time group that serves as the start of Cognitive Behavioral Therapy for Insomnia (CBT-I) . The following topics were introduced and discussed amongst the group: -Psychoeducation on basic healthy sleep, how sleep changes with age, the 2 Process Model, and the 3-P Model of Insomnia -What is Insomnia AND What is CBT-I -Sleep Hygiene -Stimulus Control -Psychoeducation on sleep medications Ms. Rutledge paid good attention during the group, and made many contributions to the discussion. Her understanding of the material presented appeared good. DIAGNOSIS: Chronic Insomnia Bipolar I Nightmare Disorder GOALS/OBJECTIVES/INTERVENTIONS: 1. Pt was provided the following handouts from today's class ? Sleep Psychoeducation ? Sleep Hygiene AND Stimulus Control ? Sleep Diaries 2. All participants were encouraged to implement Sleep Hygiene AND Stimulus Control techniques, as well as track their sleep via Sleep Diaries 3. Pt is scheduled for follow-up with [facility] provider who completed initial evaluation for remaining sessions of CBT-I Peri Segovia PSYD PsychologistLawrence F. Quigley Memorial [id number] Hospital Discharge instructions Patient Education 08/06/2021 17:09:59 Weakness (Uncertain Cause) Weakness with Uncertain Cause Based on your exam today, the exact cause of your weakness is not certain. But your weakness does not seem to be a sign of a serious illness at this time. Keep an eye on your symptoms and get medicaladvice as instructed below. Home care Rest at home today. Don't over-exert yourself. Take any medicine as prescribed. For the next few days, drink extra fluids (unless your healthcare provider wants you to restrict fluids for other reasons). Don't skip meals. Unless otherwise directed, continue to take any prescription medicines. Contact your healthcare provider if you have any questions or concerns. Follow-up care Follow up with your healthcare provider, or as advised. When to seek medical advice Call your healthcare provider right away for any of the following: Symptoms get worse Symptoms don't start getting better within 2 days Fever of 100.4 F (38 C) or higher, or as directed by your healthcare provider Call 911 Call 911 for any of these: Chest, arm, neck, jaw, or upper back pain Trouble breathing Numbness or weakness of the face, one arm, or one leg Slurred speech, confusion, or trouble speaking, walking, or seeing Blood in vomit or stool (black or red color) Loss of consciousness Severe headache 7075-4996 [employer]. [address] [place] [address]. All rights reserved. This information is not intended as a substitute for professional medical care. Always follow yourhealthcare professional's instructions. Follow Up Care 08/06/2021 14:30:26 With:CJ RIVERA Address:Unknown When:2-4 days [facility] Cammy 11-12-2021 Hospital Discharge instructions Patient Education 07/31/2021 10:39:05 External Ear Infection (Adult) External Ear Infection (Adult) External otitis (also called swimmer s ear ) is an infection in the ear canal. It is often caused by bacteria or fungus. It can occur a few days after water gets trapped in the ear canal (from swimming or bathing). It can also occur after cleaning too deeply in the ear canal with a cotton swab or other object. Sometimes, hair care products get into the ear canal and cause this problem. Symptoms can include pain, fever, itching, redness, drainage, or swelling of the ear canal. Temporary hearing loss may also occur. Home care Do not try to clean the ear canal. This can push pus and bacteria deeper into the canal. Use prescribed ear drops as directed. These help reduce swelling and fight the infection. If an earwick was placed in the ear canal, apply drops right onto the end of the wick. The wick will draw the medicine into the ear canal even if it is swollen closed. A cotton ball may be loosely placed in the outer ear to absorb any drainage. You may use acetaminophen or ibuprofen to control pain, unless another medicine was prescribed. Note: If you have chronic liver or kidney disease or ever had a stomach ulcer or GI bleeding, talk to your healthcare provider before taking any of these medicines. Do not allow water to get into your ear when bathing. Also, don't swim until the infection has cleared. Prevention Keep your ears dry. This helps lower the risk of infection. Dry your ears with a towel or hairspring assembler after getting wet. Also, use ear plugs when swimming. Do not stick any objects in the ear to remove wax. If you feel water trapped in your ear, use ear drops right away. You can get these drops over the counter at most drugstores. They work by removing water from the ear canal. Follow-up care Follow up with your healthcare provider in 1 week, or as advised. When to seek medical advice Call your healthcare provider right away if any of these occur: Ear pain becomes worse or doesn t improve after 3 days of treatment Redness or swelling of the outer ear occurs or gets worse Headache Painful or stiff neck Drowsiness or confusion Fever of 100.4 F (38 C) or higher, or as directed by your healthcare provider Seizure [id number] [employer]. [address] [place] [address]. All rights reserved. This information is not intended as a substitute for professional medical care. Always follow yourhealthcare professional's instructions. Follow Up Care 07/31/2021 10:26:13 With:CJ RIVERA APRN-INVESTOR RELATIONS DIRECTOR Address: [phone] When:2-4 days [facility] 11-03-2021 NoteHNO ID: [id number] Author: Thea Leon PSYD Service: ? Author Type: Resident Type: Progress Notes Filed: 07/22/2021 1:55 PM Note Text: Summary: [facility] Evaluation Behavioral Sleep Medicine Consult Psychological Evaluation [id number] Patient was seen for an initial evaluation. All information is from patient report and review of medical record except when noted. This evaluation is NOT intended for forensic, disability or child custody purposes. Due to the hospital [facility] and the need for ongoing mental health services, the following visit was completed virtually to reduce the risk of COVID-19 exposure. Consent related to virtual visits was provided verbally after information was sent via [employer] or read to patient if MyChart not available. Location: [address] [place] [address] Miss Rutledge has not been previously evaluated and treated by Behavioral Sleep Medicine at the [facility]. Dorothea Rutledge is a 45 year old year old female who presents for a BSM evaluation for hypnic jerks, referred by F Physician/Provider and Department- Sin Kirby APRN. CNP. PMH: ACTIVE PROBLEM LIST Focal Epilepsy (Hcc) Factor 5 Leiden Mutation, Heterozygous (Hcc) Anxiety and Depression Headaches Nicotine Use Disorder Obesity, Class I, Bmi 30-34.9 Lymphocytopenia Personal History of Other Venous Thrombosis and Embolism Acute Pyelonephritis Alcoholic Liver Damage (Hcc) Cerebrovascular Accident (Cva) (Hcc) Chronic Diastolic Heart Failure (Hcc) Deep Vein Thrombosis (Dvt) (Hcc) Dyspnea On Exertion Gastrointestinal Hemorrhage Genital Herpes Simplex History of Alcohol Abuse Injury of Kidney Insomnia Ischemic Colitis (Hcc) Hypertension Penitentiary Current Use of Anticoagulant Therapy Palpitations Pneumonia Presence of Inferior Vena Cava Filter Rectal Hemorrhage Restless Legs History of Cva (Cerebrovascular Accident) Jerking Movements of Extremities CURRENT MEDICATIONS: Current Outpatient Medications Medication Sig - lacosamide (VIMPAT) 100 mg tab 1 tab in am and 2 tabs in pm - Ascorbic Acid (VITAMIN C) 1,000 mg tablet Take 1 tablet by mouth daily at bedtime. - clonazePAM (KLONOPIN) 0.5 mg tablet Take one tablet as needed for prolonged convulsive seizure or cluster or 3 or more seizures in 24 hours. Do not exceed more than 1 tablet per day. 10 tablets per 30 days. - hydrOXYzine HCl (ATARAX) 50 mg tablet Take 50 mg by mouth four times daily. - ARIPiprazole (ABILIFY) 20 mg tablet Take 10 mg by mouth twice daily. - furosemide (LASIX) 40 mg tablet Take 40 mg by mouth once daily. - warfarin (COUMADIN) 5 mg tablet Take 5 mg by mouth on and take 2.5 mg by mouth all other days - dicyclomine (BENTYL) 20 mg tablet Take 20 mg by mouth four times daily as needed. - magnesium oxide 400 mg magnesium tab Take 1 tablet by mouth once daily. - mirtazapine (REMERON) 30 mg tablet Take 30 mg by mouth daily at bedtime. - ZUBSOLV 8.6-2.1 mg subl Dissolve 2 tablets under the tongue once daily. - metoprolol tartrate, short acting, (LOPRESSOR) 25 mg tablet Take 25 mg by mouth twice daily. - Methenamine Hippurate (HIPREX) 1 gram tablet Take 1 g by mouth once daily. - linaCLOtide (LINZESS) 290 mcg capsule Take 290 mcg by mouth once daily. - ondansetron (ZOFRAN) 4 mg tablet Take 4 mg by mouth every 8 hours as needed for nausea/vomiting. - nitrofurantoin monohydrate and macrocrystal (MACROBID) 100 mg capsule Take 25 mg by mouth once daily. - zonisamide (ZONEGRAN) 100 mg capsule 4 capsules a day (Patient taking differently: Take 400 mg by mouth once daily. ) - potassium chloride 20 mEq TbER Take 20 mEq by mouth twice daily. - venlafaxine ER (EFFEXOR XR) 150 mg 24 hr capsule Take 150 mg by mouth once daily. - VALACYCLOVIR HCL (VALTREX ORAL) Take 500 mg by mouth once daily. No current facility-administered medications for this visit. Since childhood has experienced night terrors/nightmares - tends to worsen with stress Most recently experiencing hypnic jerks that were disruptive to sleep. When gets really tired she will jerk a lot - started medication clonidine that has helped tremendously and not experiencing them any longer. Parasomnias: nightmares -presently happens 1- 2 nights a week - wakes up from them feeling anxious/terrorized - shook Common themes - Always revolve around her children - taking her last breath and son was taking his first, Kids are in danger, can't get to her kids, dying Environmental: Room is cool, comfortable, quiet and dark No TV in bedroom Bed partner: No Bedroom environment: uses phone in bed Children or Pets in bed: No CURRENT DAYTIME SCHEDULE (focus on recent typical week) Current job: not currently working outside the home CURRENT SLEEP HABITS (focus on recent typical week) Beginning of Sleep Period: Pre-bedtime activities (last hour before going to bed)? * eat dinner around 6pm-7pm, minimal T (more content not included)...[facility] 07-02-2021 Hospital Discharge instructions Patient Education 07/02/2021 12:19:08 Hypocalcemia (Adult) Hypocalcemia (Adult) Hypocalcemia is too little calcium in the blood. Calcium is a mineral. It helps the heart and othermuscles work well. It s also needed to grow and maintain strong bones and teeth. Hypocalcemia may be caused by: Lack of calcium or vitamin D in your diet Digestive problems Gland problems Kidney or pancreas disease Low magnesium levels Too much phosphate in your blood Certain medicines Hypocalcemia can cause the muscles of the face, hands, and feet to twitch without your control (spasm). It can also cause numbness or tingling around your mouth or in your hands and feet. Other problems may include depression and memory loss. A blood sample will be taken to check your calcium level. The test also helps figure out if hypocalcemia may be caused by a problem with your kidneys, or with the gland that controls your calcium level (parathyroid gland). Depending on the cause, you may be given an oral calcium supplement. In severe cases, you may need a shot (injection) of calcium gluconate. You may also have a vitamin D shot or supplement. If low magnesium is the cause, you will have treatment to raise your body s level of this mineral. Home care Your healthcare provider may have you take calcium and vitamin D supplements, or other medicines orminerals. Follow your provider s instructions for taking these supplements. General care Take any medicines or supplements as directed. Make diet changes as instructed by your provider. You may be asked to eat more dairy products like milk, cheese, and yogurt. Avoid drinking sodas. Many of these have phosphates. These can interfere with your ability to absorb calcium. Try to get out in the sun for at least 20 minutes each day. Sun exposure helps your body make vitamin D. This helps you absorb calcium. Follow-up care Follow up as advised by your healthcare provider, or as advised. When to seek medical advice Call your healthcare provider right away if any of these occur: Extreme tiredness (fatigue) Irregular heartbeat Depression Seeing or hearing things that aren t there (hallucinations) Muscle cramps, spasms, or twitching Numbness and tingling in the arms, legs, hands, or feet Seizures [id number] [employer]. [address] [place] [address]. All rights reserved. This information is not intended as a substitute for professional medical care. Always follow yourhealthcare professional's instructions. 07/02/2021 12:18:50 Back Spasm, No Trauma Back Spasm (No Trauma) Spasm of the back muscles can occur after a sudden forceful twisting or bending such as in a car accident. A spasm can also happen after a simple awkward movement, or after lifting something heavy with poor body positioning. In any case, muscle spasm adds to the pain. Sleeping in an awkward position or on a poor quality mattress can also cause this. Some people respond to emotional stress by tensing the muscles of their back. Pain that continues may need further assessment or other types of treatment such as physical therapy. You don't always need X-rays for the first assessment of back pain, unless you had a physical injury such as from a car accident or fall. If your pain continues and doesn't respond to medical treatment, X-rays and other tests may then be done. Home care As soon as possible, start sitting or walking again. This will help prevent problems from a long bed rest. These problems include muscle weakness, worsening back stiffness and pain, and blood clots in the legs. When in bed, try to find a position of comfort. A firm mattress is best. Try lying flat on your back with pillows under your knees. You can also try lying on your side with your knees bent up toward your chest and a pillow between your knees. Don't sit for long periods. Also limit car rides and travel. This puts more stress on the lower back than standing or walking. During the first 24 to 72 hours after an injury or flare-up, put an ice pack on the painful area for 20 minutes, then remove it for 20 minutes. Do this over a period of 60 to 90 minutes, or several times a day. This will reduce swelling and pain. Always wrap ice packs in a thin towel. You can start with ice, then switch to heat. Heat from a hot shower, hot bath, or heating pad reduces pain and works well for muscle spasms. Put heat on the painful area for 20 minutes, then remove it for 20 minutes. Do this over a period of 60 to 90 minutes, or several times a day. Don't sleep on a heating pad. It can burn or damage skin. Alternate using ice and heat. Be aware of safe lifting methods. don't lift anything over 15 pounds until all the pain is gone. Gentle stretching will help your back heal faster. Do this simple routine 2 to 3 times a day until your back is feeling better. Lie on your back with your knees bent and both feet on the ground. Slowly raise your left knee to your chest as you flatten your lower back against the floor. Hold for 20 to 30 seconds. Relax and repeat the exercise with your right knee. Do 2 to 3 of these exercises for each leg. Repeat, hugging both knees to your chest at the same time. Don't bounce, but use a gentle pull. Medicines Talk with your doctor before using medicine, especially if you have other medical problems or are taking other medicines. You may use [id number] medicines such as acetaminophen, ibuprofen, or naprosyn to control pain, unless your healthcare provider prescribed another pain medicine. Talk with your healthcare provider if you have a chronic condition such as diabetes, liver or kidney disease, stomach ulcer, or digestive bleeding, or are taking blood thinners. Be careful if you are given prescription pain medicine, opioids, or medicine for muscle spasm. Theycan cause drowsiness, and affect your coordination, reflexes, and judgment. Don't drive or operate heavy machinery when taking these medicines. Take pain medicine only as prescribed by your healthcare provider. Follow-up care Follow up with your doctor, or as advised. You may need physical therapy or more tests. If X-rays were taken, they may be reviewed by a radiologist. You will be told of any new findings that may affect your care. Call Call if any of these occur: Trouble breathing Confusion Drowsiness or trouble awakening Fainting or loss of consciousness Rapid or very slow heart rate Loss of bowel or bladder control When to seek medical advice Call your healthcare provider right away if any of these occur: Pain becomes worse or spreads to your legs Weakness or numbness in one or both legs Numbness in the groin or genital area Fever of 100.4 F (38 C) or higher , or as directed by your healthcare provider Chills Burning or pain when passing urine [id number] [employer]. [address] [place] [address]. All rights reserved. This information is not intended as a substitute for professional medical care. Always follow yourhealthcare professional's instructions. Follow Up Care 07/02/2021 09:42:29 With:CJ RIVERA Address: [address] [place] [address] [place] [address] Business (1) When:2-4 days Comments:Return to ED if symptoms worsen [facility] 08-11-2021 NoteHNO ID: [id number] Author: Alaina Tomlin APRN.INVESTOR RELATIONS DIRECTOR Service: ? Author Type: Nurse Practitioner Type: Progress Notes Filed: 04/29/2021 1:25 PM Note Text: Please route this encounter to the EMU Scheduling Pool ( P EMU ) or PMU Scheduling Pool ( P PMU ) through LOS AND Follow up PHASE 1.0 AND 1.5 ORDER SYNOPSIS Patient: Dorothea Rutledge ([id number]) Best contact number: [phone] Insurance: Payor: [employer] MEDICARE / Plan: [employer] / Product Type: HMO / ----- Scheduling Team: Please call for adult patients: Alaina Flores ([phone]) or Mimi Jean [phone] Please call for pediatric patients: Alaina Flores ([phone]) or Mimi Jean [phone] ----- 04/29/2021 Admission Type EMU Adult Number of Days requested 5 - 3-5 Location [facility] Admit Priority HEIDY PURPOSE 04/29/2021 Patient Being Considered for Epilepsy Surgery? No VEEG recommended to assess seizure burden, address new AND concerning syymptom-sign complex, and/or clarify syndromic epilepsy diagnosis? Yes 04/29/2021 Sphenoidal monitoring No Electrode placement Standard Appointments and Tests PRE-PROCEDURE AND PRE-OPERATIVE COVID (AMB COVID PRE-PROCEDURE TESTING PANEL) EPIL EEG LEAD PLACEMENT EPIL VEEG ADMIT TO EMU/PMU Consultations None Please route this encounter to the EMU Scheduling pool ( P EMU ) or PMU Scheduling pool ( P PMU ) through LOS AND Follow up Scheduling coordinators: For all VNS patients being scheduled for IVELISSE, please schedule [facility] off/on office visits[facility]ments Appointment Date:07/09/2021 03:30:00 PM Scheduled Provider:CHRYSTAL GAVIRIA Location:[facility] Appointment Type:CV OV Appointment Date:08/27/2021 01:30:00 PM Scheduled Provider:CJ RIVERA Location:[facility] Appointment Type:PC OV Future Scheduled Tests Laboratory* Basic Metabolic Panel 06/30/21 * N-Terminal proBNP 08/20/21 * Lipid Profile 06/23/21 Radiology* NM Myocardial Spect Rest/Stress 07/23/20 * MA Mammo Screening Bilateral w/ Awais 02/18/21 [facility] Evaluation + Plan note Future Appointments Appointment Date:08/27/2021 01:30:00 PM Scheduled Provider:CJ RIVERA Location:[facility] Appointment Type:PC OV Future Scheduled Tests Laboratory* Basic Metabolic Panel 06/30/21 * Calcium Level Ionized 07/06/21 * Magnesium Level 07/06/21 * Phosphorus Level 07/06/21 * N-Terminal proBNP 08/20/21 * Lipid Profile 06/23/21 * Prealbumin 07/06/21 * PTH, Intact 07/06/21 * Complete Metabolic Panel 07/06/21 Radiology* MA Mammo Screening Bilateral w/ Awais 02/18/21 [facility] Evaluation + Plan note Future Appointments Appointment Date:09/23/2021 08:30:00 AM Scheduled Provider:CJ RIVERA Location:[facility] Appointment Type:PC OV Future Scheduled Tests Laboratory* Basic Metabolic Panel 06/30/21 * Calcium Level Ionized 07/06/21 * Magnesium Level 07/06/21 * Phosphorus Level 07/06/21 * N-Terminal proBNP 08/20/21 * Lipid Profile 06/23/21 * Prealbumin 07/06/21 * PTH, Intact 07/06/21 * Complete Metabolic Panel 07/06/21 Radiology* MA Mammo Screening Bilateral w/ Awais 02/18/21 [facility] Evaluation + Plan note Future Appointments Appointment Date:10/29/2021 01:30:00 PM Scheduled Provider:CHAYITO DIAZ MD Location:[facility] Appointment Type: OV Future Scheduled Tests Laboratory* Basic Metabolic Panel 06/30/21 * Calcium Level Ionized 07/06/21 * Magnesium Level 07/06/21 * Phosphorus Level 07/06/21 * N-Terminal proBNP 08/20/21 * Lipid Profile 06/23/21 * Prealbumin 07/06/21 * PTH, Intact 07/06/21 * Complete Metabolic Panel 07/06/21 Radiology* MA Mammo Screening Bilateral w/ Awais 02/18/21 [facility] Evaluation + Plan note Future Appointments Appointment Date:02/09/2022 11:30:00 AM Scheduled Provider:CJ RIVERA Location:[facility] Appointment Type:PC OV Future Scheduled Tests Laboratory* Basic Metabolic Panel 06/30/21 * Calcium Level Ionized 07/06/21 * Magnesium Level 07/06/21 * Phosphorus Level 07/06/21 * Lipid Profile 06/23/21 * Prealbumin 07/06/21 * PTH, Intact 07/06/21 * Complete Metabolic Panel 07/06/21 * N-Terminal proBNP 08/20/21 Radiology* MA Mammo Screening Bilateral w/ Awais 02/18/21 [facility] evaluation + Plan note Future Appointments Appointment Date:03/15/2022 11:00:00 AM Scheduled Provider:CJ RIVERA [facility] Type:PC OV Future Scheduled Tests Laboratory* Basic Metabolic Panel 06/30/21 * Calcium Level Ionized 07/06/21 * Magnesium Level 07/06/21 * Phosphorus Level 07/06/21 * Lipid Profile 06/23/21 * Prealbumin 07/06/21 * PTH, Intact 07/06/21 * Complete Metabolic Panel 07/06/21 * N-Terminal proBNP 08/20/21 Radiology* MA Mammo Screening Bilateral w/ Awais 02/18/21 [facility] Evaluation + Plan note Future Appointments Appointment Date:03/15/2022 11:00:00 AM Scheduled Provider:CJ RIVERA [facility] Appoint[facility] Type:PC OV Future Scheduled Tests Laboratory* Basic Metabolic Panel 06/30/21 * Calcium Level Ionized 07/06/21 * Magnesium Level 07/06/21 * Phosphorus Level 07/06/21 * Lipid Profile 06/23/21 * Prealbumin 07/06/21 * PTH, Intact 07/06/21 * Complete Metabolic Panel 07/06/21 * N-Terminal proBNP 08/20/21 [facility] Evaluation + Plan note Future Appointments Appointment Date:07/01/2021 10:00:00 AM Scheduled Provider:CHRYSTAL GAVIRIA Location[facility] Appointment Type:CV OV Appointment Date:08/27/2021 01:30:00 PM Scheduled Provider:CJ RIVERA Location:[facility] Appointment Type:PC OV Future Scheduled Tests Laboratory* Basic Metabolic Panel 06/30/21 * N-Terminal proBNP 08/20/21 * Lipid Profile 06/23/21 Radiology* NM Myocardial Spect Rest/Stress 07/23/20 * MA Mammo Screening Bilateral w/ Awais 02/18/21 [facility] Evaluation + Plan note Future Appointments Appointment Date:04/20/2022 01:40:00 PM Scheduled Provider:MARTINA ARROYO Location:[facility] Appointment Type:PC OV Future Scheduled Tests Laboratory* Basic Metabolic Panel 06/30/21 * Calcium Level Ionized 07/06/21 * Magnesium Level 07/06/21 * Phosphorus Level 07/06/21 * Lipid Profile 06/23/21 * Prealbumin 07/06/21 * PTH, Intact 07/06/21 * Complete Metabolic Panel 07/06/21 * N-Terminal proBNP 08/20/21 [facility] Evaluation + Plan note Future Appointments Appointment Date:06/29/2022 01:30:00 PM Scheduled Provider:CJ RIVERA Location:[facility] Appointment Type:Telehealth Future Scheduled Tests Laboratory* Basic Metabolic Panel 06/30/21 * Calcium Level Ionized 07/06/21 * Magnesium Level 07/06/21 * Phosphorus Level 07/06/21 * Lipid Profile 06/09/22 * Lipid Profile 06/23/21 * Prealbumin 07/06/21 * PTH, Intact 07/06/21 * Vitamin D Level 06/09/22 * Complete Metabolic Panel 06/09/22 * Complete Metabolic Panel 07/06/21 * N-Terminal proBNP 08/20/21 [facility] Evaluation + Plan note Future Appointments Appointment Date:10/04/2022 03:30:00 PM Scheduled Provider:CJ RIVERA Location:[facility] Appointment Type:PC OV Future Scheduled Tests Laboratory* Lipid Profile 06/09/22 * Vitamin D Level 06/09/22 * Complete Metabolic Panel 06/09/22 * N-Terminal proBNP 08/20/21 [facility] Evaluation + Plan note Future Appointments Appointment Date:10/20/2022 01:30:00 PM Scheduled Provider:CJ RIVERA Location:[facility] Appointment Type:PC OV Future Scheduled Tests Laboratory* Lipid Profile 06/09/22 * Vitamin D Level 06/09/22 * Complete Metabolic Panel 06/09/22 [facility] Evaluation + Plan note Future Appointments Appointment Date:12/09/2022 02:30:00 PM Scheduled Provider: Location:[facility] Appointment Type:CV OV Appointment Date:01/24/2023 02:30:00 PM Scheduled Provider:CJ RIVERA Location:[facility] Appointment Type: OV Future Scheduled Tests Laboratory* Lipid Profile 06/09/22 * Vitamin D Level 06/09/22 * Complete Metabolic Panel 06/09/22 [facility] Evaluation + Plan note Future Appointments Appointment Date:04/18/2023 03:30:00 PM Scheduled Provider:CJ RIVERA Location:[facility] Appointment Type:PC OV Future Scheduled Tests Laboratory* Basic Metabolic Panel 12/07/22 * Magnesium Level 12/07/22 * Complete Blood Count 12/07/22 * Lipid Profile 06/09/22 * Vitamin D Level 06/09/22 * Complete Metabolic Panel 06/09/22 * N-Terminal proBNP 12/07/22 [facility] Evaluation + Plan note Future Appointments Appointment Date:05/03/2023 01:00:00 PM Scheduled Provider:CHAYITO DIAZ MD Location:[facility] Appointment Type:[facility] Hospital Follow-Up Future Scheduled Tests Laboratory* Basic Metabolic Panel 12/07/22 * Lipase Level 04/18/23 * Magnesium Level 12/07/22 * Complete Blood Count 12/07/22 * Lipid Profile 06/09/22 * Vitamin D Level 06/09/22 * Complete Metabolic Panel 04/18/23 * Complete Metabolic Panel 06/09/22 * N-Terminal proBNP 12/07/22 [facility] Evaluation + Plan note Future Appointments Appointment Date:05/12/2023 10:30:00 AM Scheduled Provider:CHAYITO DIAZ MD Location:[facility] Appointment Type:[facility] Hospital Follow-Up Future Scheduled Tests Laboratory* Basic Metabolic Panel 12/07/22 * Lipase Level 04/18/23 * Magnesium Level 12/07/22 * Complete Blood Count 12/07/22 * Lipid Profile 06/09/22 * Vitamin D Level 06/09/22 * Complete Metabolic Panel 04/18/23 * Complete Metabolic Panel 06/09/22 * N-Terminal proBNP 12/07/22 [facility] Evaluation + Plan note Future Appointments Appointment Date:06/06/2023 01:00:00 PM Scheduled Provider:CJ RIVERA Location:[facility] Appointment Type:[facility] Hospital Follow-Up Diagnostic Tests Pending * Urine Culture 05/19/23 Future Scheduled Tests Laboratory* Basic Metabolic Panel 12/07/22 * Lipase Level 04/18/23 * Magnesium Level 12/07/22 * Complete Blood Count 12/07/22 * Lipid Profile 06/09/22 * Vitamin D Level 06/09/22 * Complete Metabolic Panel 04/18/23 * Complete Metabolic Panel 06/09/22 * N-Terminal proBNP 12/07/22 [facility] Evaluation + Plan note Future Appointments Appointment Date:06/06/2023 01:00:00 PM Scheduled Provider:CJ RIVERA Location:[facility] Appointment Type:[facility] Follow-Up Future Scheduled Tests Laboratory* Basic Metabolic Panel 12/07/22 * Lipase Level 04/18/23 * Magnesium Level 12/07/22 * Complete Blood Count 12/07/22 * Lipid Profile 06/09/22 * Vitamin D Level 06/09/22 * Complete Metabolic Panel 04/18/23 * Complete Metabolic Panel 06/09/22 * N-Terminal proBNP 12/07/22 [facility] Evaluation + Plan note Future Appointments Appointment Date:11/01/2023 02:30:00 PM Scheduled Provider:MARGIE SOTO DO Location:[facility] Appointment Type:[facility] Future Scheduled Tests Laboratory* Basic Metabolic Panel 12/07/22 * Lipase Level 04/18/23 * Magnesium Level 12/07/22 * Complete Blood Count 12/07/22 * Complete Metabolic Panel 04/18/23 * N-Terminal proBNP 12/07/22 Radiology* CT Abd/Pelvis w/ IV Contrast Only 06/06/23 [facility] Evaluation + Plan note Future Appointments Appointment Date:10/21/2023 11:30:00 AM Scheduled Provider: Location:[facility] Appointment Type:DB Diabetic Individual Visit (AOH) Appointment Date:11/01/2023 02:30:00 PM Scheduled Provider:MARGIE SOTO DO Location:[facility] Appointment Type:PC OV Future Scheduled Tests Laboratory* Basic Metabolic Panel 12/07/22 * Lipase Level 04/18/23 * Magnesium Level 12/07/22 * Complete Blood Count 12/07/22 * C-Peptide 10/17/23 * Complete Metabolic Panel 04/18/23 * N-Terminal proBNP 12/07/22 Radiology* CT Abd/Pelvis w/ IV Contrast Only 06/06/23 [facility] Evaluation + Plan note Future Appointments Appointment Date:11/10/2023 01:30:00 PM Scheduled Provider:CJ RIVERA Location:[facility] Appointment Type: OV ED Follow Up Appointment Date:11/18/2023 02:30:00 PM Scheduled Provider: Location:[facility] Appointment Type:MEDS - Diabetic Individual Visit Appointment Date:11/18/2023 03:00:00 PM Scheduled Provider: Location:[facility] Appointment Type:NUT Diet Visit Individual Future Scheduled Tests Laboratory* Basic Metabolic Panel 12/07/22 * Lipase Level 04/18/23 * Magnesium Level 12/07/22 * Complete Blood Count 12/07/22 * Complete Metabolic Panel 04/18/23 * N-Terminal proBNP 12/07/22 Radiology* CT Abd/Pelvis w/ IV Contrast Only 06/06/23 [facility] Evaluation + Plan note Future Appointments Appointment Date:01/24/2024 01:30:00 PM Scheduled Provider:CJ RIVERA Location:[facility] Appointment Type:PC OV Appointment Date:01/27/2024 03:00:00 PM Scheduled Provider: Location:[facility] Appointment Type:MA Mammogram Screening Bilateral w/ Awais Appointment Date:04/19/2024 02:00:00 PM Scheduled Provider:ESTHELA VALDIVIA MD Location:[facility] Appointment Type:ENDO ASSISTANT BRANCH MANAGER Future Scheduled Tests Laboratory* Lipase Level 04/18/23 * Complete Metabolic Panel 04/18/23 Radiology* MA Mammo Screening Bilateral w/ Awais 01/27/24 * CT Abd/Pelvis w/ IV Contrast Only 06/06/23 [facility] Evaluation + Plan note Future Appointments Appointment Date:03/20/2024 11:30:00 AM Scheduled Provider:CJ RIVERA Location:[facility] Appointment Type:PC OV Appointment Date:03/23/2024 03:30:00 PM Scheduled Provider: Location:[facility] Appointment Type:MA Mammogram Screening Bilateral w/ Awais Appointment Date:04/19/2024 02:00:00 PM Scheduled Provider:ESTHELA VALDIVIA MD Location:[facility] Appointment Type:ENDO ASSISTANT BRANCH MANAGER Future Scheduled Tests Laboratory* Lipase Level 04/18/23 * Lipid Profile 05/17/24 * Complete Metabolic Panel 04/18/23 * Complete Metabolic Panel 05/17/24 Radiology* MA Mammo Screening Bilateral w/ Awais 03/23/24 * CT Abd/Pelvis w/ IV Contrast Only 06/06/23 [facility] Evaluation note* Diagnosis Focal epilepsy (HCC) Localization-related (focal) (partial) epilepsy and epileptic syndromes with simple partial seizures, without mention of intractable epilepsy [facility] Focal epilepsy (HCC) Localization-related (focal) (partial) epilepsy and epileptic syndromes with simple partial seizures, without mention of intractable epilepsy [facility] Diagnosis Partial epilepsy with impairment of consciousness (HCC) Localization-related (focal) (partial) epilepsy and epileptic syndromes with complex partial seizures, without mention of intractable epilepsy Focal epilepsy (HCC) Localization-related (focal) (partial) epilepsy and epileptic syndromes with simple partial seizures, without mention of intractable epilepsy [facility] Diagnosis Focal epilepsy (HCC) Localization-related (focal) (partial) epilepsy and epileptic syndromes with simple partial seizures, without mention of intractable epilepsy [facility] Diagnosis Partial epilepsy with impairment of consciousness (HCC) Localization-related (focal) (partial) epilepsy and epileptic syndromes with complex partial seizures, without mention of intractable epilepsy [facility]* Diagnosis Focal epilepsy (HCC) Localization-related (focal) (partial) epilepsy and epileptic syndromes with simple partial seizures, without mention of intractable epilepsy [facility] Diagnosis Psychosis, unspecified psychosis type (HCC)- Primary Agitation Other and unspecified special symptom or syndrome, not elsewhere classified [facility]* Diagnosis Focal epilepsy (HCC) Localization-related (focal) (partial) epilepsy and epileptic syndromes with simple partial seizures, without mention of intractable epilepsy documented in this encounter [facility] note* Diagnosis Partial epilepsy with impairment of consciousness (HCC) Localization-related (focal) (partial) epilepsy and epileptic syndromes with complex partial seizures, without mention of intractable epilepsy documented in this encounter [facility] note* Constitutional: Well developed, awake/alert/oriented x3, no distress, alert and cooperativeSkin: Warm and dry, no lesions, no rashes, numerous scattered ecchymosisEyes: PERRL, EOMI, clear scleraHead/Neck: Neck supple, no apparent injury, thyroid without mass or tenderness, No JVD, trachea midline, no bruitsRespiratory/Thorax: Patent airways, good chest expansion, thorax symmetricGastrointestinal:Nondistended, soft, non-tender, no rebound tenderness or guarding, no masses palpable, no organomegaly, +BS, no bruitsMusculoskeletal: ROM intact, no joint swelling, normal strengthExtremities: normal extremities, no cyanosis edema, contusions or wounds, no clubbingNeurological: alert and oriented x3, intact senses, motor, response and reflexes, normal strengthPsychological: Appropriate mood and behavior [facility]* Cardiovascular: Regular, rate and rhythm, no murmurs, 2+ equal pulses of the extremities, normal S 1and S 2Gastrointestinal: Soft, TTP of Rt~mid abdomen. No guarding.Extremities: normal extremities, no cyanosis edema, contusions or wounds, no clubbingConstitutional: Well developed, awake/alert/oriented x3, no distress, alert and cooperative [facility] note* Diagnosis Epigastric pain Abdominal pain, epigastric Other chronic pancreatitis (CMS/HCC) documented in this encounter [facility] Work Phone: Evaluation note* Diagnosis Chronic pancreatitis, unspecified pancreatitis type (CMS/HCC)- Primary documented in this encounter [facility] Work Phone: [phone] note* Diagnosis Poor intravenous access documented in this encounter [facility] Work Phone: [phone] note* Diagnosis Poor intravenous access documented in this encounter [facility] Work Phone: [phone] note* Diagnosis Poor intravenous access documented in this encounter [facility] Work Phone: [phone] note* Diagnosis Chronic pancreatitis, unspecified pancreatitis type (CMS/HCC)- Primary Generalized abdominal pain Abdominal pain, generalized documented in this encounter [facility] Work Phone: [phone] note* Diagnosis Chronic pancreatitis, unspecified pancreatitis type (CMS/HCC) documented in this encounter [facility] Work Phone: [phone] note* Diagnosis Chronic pancreatitis, unspecified pancreatitis type (CMS/HCC) documented in this encounter [facility] Work Phone: [phone] note* Diagnosis 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 Chronic pancreatitis, unspecified pancreatitis type (CMS/HCC) Right ear impacted cerumen Impacted cerumen Diabetes mellitus, type 2 (CMS/HCC) Type II or unspecified type diabetes mellitus without mention of complication, not stated as uncontrolled documented in this encounter [facility] Work Phone: [phone] note* Diagnosis Other chronic pancreatitis (CMS/HCC) documented in this encounter [facility] Work Phone: [phone] note* Diagnosis Other chronic pancreatitis (CMS/HCC) documented in this encounter [facility] Work Phone: [phone] note* Diagnosis Generalized abdominal pain- Primary Abdominal pain, generalized Generalized abdominal pain Abdominal pain, generalized 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 Acute embolism and thrombosis of unspecified deep veins of distal lower extremity, bilateral (CMS/HCC) Palpitations Factor 5 Leiden mutation, heterozygous (CMS/HCC) Abdominal pain Abdominal pain, unspecified site documented in this encounter [facility] Work Phone: Evaluation note* Diagnosis Generalized abdominal pain- Primary Abdominal pain, generalized Chronic pancreatitis, unspecified pancreatitis type (Multi) documented in this encounter [facility] Work Phone: Evaluation note* Diagnosis Acute pancreatitis without necrosis or infection, unspecified (HHS-HCC)- Primary Pulmonary embolism on right (Multi) Other pulmonary embolism and infarction Idiopathic chronic pancreatitis (Multi) Single subsegmental pulmonary embolism without acute cor pulmonale (Multi) Swelling of extremity Anticoagulant long-term use Encounter for long-term (current) use of anticoagulants documented in this encounter [facility] Work Phone: Evaluation note* Diagnosis History of epistaxis- Primary Hematemesis, unspecified whether nausea present Anticoagulated Encounter for long-term (current) use of anticoagulants documented in this encounter [facility] Work Phone: Evaluation note* Diagnosis Focal epilepsy (HCC)- Primary Localization-related (focal) (partial) epilepsy and epileptic syndromes with simple partial seizures, without mention of intractable epilepsy Anxiety and depression Dysthymic disorder Headaches Nicotine use disorder Tobacco use disorder Obesity, Class I, BMI 30-34.9 Obesity, unspecified Vulvar skin tag- Primary Other specified noninflammatory disorder of vulva and perineum Vaginal yeast infection Candidiasis of vulva and vagina [facility]* Diagnosis Focal epilepsy (HCC)- Primary Localization-related (focal) (partial) epilepsy and epileptic syndromes with simple partial seizures, without mention of intractable epilepsy Anxiety and depression Dysthymic disorder Headaches Nicotine use disorder Tobacco use disorder Obesity, Class I, BMI 30-34.9 Obesity, unspecified Vulvar lesion- Primary Other specified noninflammatory disorder of vulva and perineum Vulvar mass Other specified symptom associated with female genital organs [facility] Narrative No data available for this section [facility] Hospital Discharge instructions No data available for this section [facility] Hospital Discharge instructions* Activity:activity as tolerated. May shower. * Call Provider If:Temperature is greater than 102 degrees. Chills. Drinking less than normal. * Follow Up Appointment 1:Physician/Dept/Service: Cj Rivera CNP - PCPScheduled Date/Time: 06-Jun-2023 13:00Location: [address] [place] [address] Qthfn Number: [phone]: Please arrive 10-15 minutes early, bring discharge summary, bring photo ID, current list of medications & dosages, insurance cards and any copay that may apply. If unable to keep this appointment, please call to cancel at least 24 hrs prior to appointment. * Follow Up Appointment 2:Physician/Dept/Service: Dr. Hicks - GastroenterologyScheduled Date/Time: 18-May-2023 10:20Location: [address] [address]Zoije Number: [phone]: Please arrive 10-15 minutes early, bring photo ID, current list of medications & dosages, insurance cards and any copay that may apply. If unable to keep this appointment, please call to cancel at least 24 hrs prior to appointment. * Follow Up Appointment 3:Physician/Dept/Service: Dr. Rasmussen - Pain MedicineScheduled Date/Time: 25-May-2023 09:00Location: [address] [place], [place] [address]Bwxce Number: [phone]: Please arrive 10-15 minutes early, bring photo ID, current list of medications & dosages, insuranc e cards and any copay that may apply. If unable to keep this appointment, please call to cancel at least 24 hrs prior to appointment. [facility]* Activity:activity as tolerated. Weight-bearing Instructions: full weight bearing. * Call Provider If:Vomiting (throwing up) and not able to eat or drink for 12 hours. Any new concerning symptoms. * Follow Up Appointment 1:Physician/Dept/Service: Gastroenterology clinicScheduled Date/Time: 06-Jul-2023 09:40Location: [facility] [address] * Follow Up Appointment 2:Physician/Dept/Service: Pain management clinicScheduled Date/Time: 05-Jul-2023 13:30Location: [facility]. [facility]* Attachments The following attachments cannot be sent through Care Everywhere. * Acute pancreatitis (Danish) [facility]: Note* Andi Sandoval RN: PERFORM Event Display: [place] Patient Summary Authored Date: Discharge Instructions Thank you for allowing [facility] to assist you with your healthcare needs. The following is importantdischarge information regarding your hospital visit. Diagnosis from Today's Visit Abdominal pain Medication refill Pancreatitis What to Do Next Instructions from Your Care Team Urine culture pending. Clear liquid diet advance as tolerated. No qualifying data available. Post Acute Orders No qualifying data available. You Need to Schedule the Following Appointments Follow Up with [facility] When Within 2-4 days Where: Follow Up with CJ RIVERA [facility] When Within 2-4 days Where: [address] [place] [address]- [phone] Follow Up with Go to emergency room if symptoms worsen When Within 2-4 days Allergies penicillin (Rash) Neurontin (Vomiting) sulfa drug Medications Please ask your primary doctor or pharmacist before taking any other medication not listed, including over the counter drugs, herbal medications, vitamins and or supplements as they may interact withyour home medications. What How Much When Why Instructions Last Dose New acetaminophen-hydrocodone (Joppa 325- 5 mg oral tablet) 1 tab(s) by mouth Every 4 hours as needed for for pain Pancreatitis Duration: 3 Days Printed Prescription New cephalexin (cephalexin 500 mg oral tablet) 1 tab(s) by mouth Four (4) times a day Duration: 7 Days Printed Prescription Changed ondansetron (ondansetron 8 mg oral tablet, disintegrating) 1 tab(s) by mouth Three (3) times a day as needed for Nausea Changed ondansetron (Zofran 4 mg oral tablet) 1 tab(s) by mouth Every 8 hours Printed Prescription Unchanged acetaminophen-oxyCODONE (acetaminophen-oxyCODONE 325 mg-5 mg oral tablet) 2 tab(s) by mouth Every 6 hours as needed for for pain Unchanged APAP/ butalbital/ caffeine (APAP/ butalbital/ caffeine 325-50-40 mg oral tablet (Fioricet)) 1 tab(s) by mouth Every 4 hours as needed for as needed in absence of pcp Unchanged ARIPiprazole (ARIPiprazole 10 mg oral tablet) 1 tab(s) by mouth Once a day Unchanged ascorbic acid (Vitamin C 1000 mg oral tablet) 1 tab(s) by mouth Once a day Unchanged cholecalciferol (cholecalciferol 1250 mcg (50,000 intl units) oral capsule) 1 cap by mouth Every Tuesday Duration: 90 Days Unchanged clonazePAM (clonazePAM 0.5 mg oral tablet) 1 tab(s) by mouth Once a day as needed for Anxiety Unchanged cloNIDine (cloNIDine 0.2 mg oral tablet) 1 tab(s) by mouth Once a day Duration: 90 Days Unchanged dicyclomine (dicyclomine 10 mg oral capsule) 1 cap by mouth Four (4) times a day Duration: 10 Days Unchanged fenofibrate (fenofibrate 145 mg oral tablet) 1 tab(s) by mouth Once a day Unchanged furosemide (furosemide 40 mg oral tablet) 1 tab(s) by mouth Once a day Duration: 90 Days Unchanged hydroCHLOROthiazide (hydroCHLOROthiazide 25 mg oral tablet) 1 tab(s) by mouth Once a day Unchanged lacosamide (lacosamide 100 mg oral tablet) 1 tab(s) by mouth Once a day (in the morning) Unchanged lacosamide (lacosamide 100 mg oral tablet) 2 tab(s) by mouth Once a day (in the evening) Unchanged lactulose (lactulose 10 g/ 15 mL oral syrup) 15 Milliliter by mouth Two (2) times a day as needed for as needed for constipation Unchanged linaclotide (Linzess 290 mcg oral capsule) 1 cap by mouth Once a day Duration: 90 Days Unchanged magnesium salicylate (magnesium salicylate 600 mg oral tablet) 1 tab(s) by mouth Every 4 hours Unchanged methenamine (methenamine hippurate 1 g oral tablet) 1 tab(s) by mouth Once a day Duration: 90 Days Unchanged metoprolol (metoprolol succinate 25 mg oral TABLET extended release) 1 tab(s) by mouth Once a day Duration: 30 Days Unchanged mirtazapine (mirtazapine 7.5 mg oral tablet) 1 tab(s) by mouth Daily at bedtime Unchanged naloxone (naloxone 4 mg/ 0.1 mL nasal spray) 1 spray(s) Intranasal As Directed as needed for see pharmacy notes may repeat every 2 to 3 minutes until patient responds Unchanged nitrofurantoin (Macrobid 100 mg oral capsule) 1 cap by mouth Once a day as needed for Symptoms of urinary discomfort Take with food Unchanged nortriptyline (nortriptyline 25 mg oral capsule) 1 cap by mouth Three (3) times a day Unchanged omeprazole (omeprazole 40 mg oral delayed release capsule) 1 cap by mouth Two (2) times a day Duration: 90 Days Unchanged oxyCODONE (oxyCODONE 5 mg oral tablet ( IMMEDIATE release )) 2 tab(s) by mouth Every 6 hours as needed for for pain Unchanged pancrelipase (Creon 12,000 units oral delayed release capsule) 1 cap by mouth Three (3) times a day Unchanged pancrelipase (Creon 36,000 units oral delayed release capsule) 1 cap by mouth Four (4) times a day Unchanged potassium chloride (potassium chloride 20 mEq oral tablet, extended release) 1 tab(s) by mouth Three (3) times a day Duration: 90 Days Unchanged promethazine (promethazine 25 mg oral tablet) 1 tab(s) by mouth Every 6 hours as needed for for nausea/vomiting Unchanged promethazine (promethazine 25 mg oral tablet) 1 tab(s) by mouth Two (2) times a day Duration: 14 Days Unchanged rivaroxaban (Xarelto 10 mg oral tablet) 1 tab(s) by mouth Once a day Duration: 90 Days Unchanged rOPINIRole (rOPINIRole 0.5 mg oral tablet) 1 tab(s) by mouth Two (2) times a day Duration: 90 Days Unchanged valACYclovir (valACYclovir 500 mg oral tablet) 1 tab(s) by mouth Once a day Duration: 90 Days Unchanged venlafaxine (venlafaxine 150 mg oral capsule, extended release) 1 cap by mouth Once a day Duration: 90 Days for a total of 225 mg/ day. Unchanged venlafaxine (venlafaxine 75 mg oral capsule, extended release) 1 cap by mouth Once a day Duration: 90 Days for a total of 225 mg/ day. Please take this list to your next doctor s visit. Bring all medications you take, including over the counter medications, herbals and other supplements with you to your doctor s visit. Patients and families are reminded to discard old lists and to update any records with all medication providers or retail pharmacies. Medication Leaflets ondansetron (oral) (on BENJI estrada) What is the most important information I should know about ondansetron? You should not use ondansetron if you are also using apomorphine (Apokyn). What is ondansetron? Ondansetron blocks the actions of chemicals in the body that can trigger nausea and vomiting. Ondansetron is used to prevent nausea and vomiting that may be caused by surgery, cancer chemotherapy, or radiation treatment. Ondansetron may be used for purposes not listed in this medication guide. What should I discuss with my health care provider before taking ondansetron? You should not use ondansetron if: you are also using apomorphine (Apokyn); or you are allergic to ondansetron or similar medicines (dolasetron, granisetron, palonosetron). To make sure ondansetron is safe for you, tell your doctor if you have: liver disease; an electrolyte imbalance (such as low levels of potassium or magnesium in your blood); congestive heart failure, slow heartbeats; a personal or family history of long QT syndrome; or a blockage in your digestive tract (stomach or intestines). Ondansetron is not expected to harm an unborn baby. Tell your doctor if you are . It is not known whether ondansetron passes into breast milk or if it could harm a nursing baby. Tell your doctor if you are breast-feeding a baby. Ondansetron is not approved for use by anyone younger than 4 years old. Ondansetron orally disintegrating tablets may contain phenylalanine. Tell your doctor if you have phenylketonuria (PKU). How should I take ondansetron? Follow all directions on your prescription label. Do not take this medicine in larger or smaller amounts or for longer than recommended. Ondansetron can be taken with or without food. The first dose of ondansetron is usually taken before the start of your surgery, chemotherapy, or radiation treatment. Follow your doctor's dosing instructions very carefully. Take the ondansetron regular tablet with a full glass of water. To take the orally disintegrating tablet (Zofran ODT): Keep the tablet in its blister pack until you are ready to take it. Open the package and peel back the foil. Do not push a tablet through the foil or you may damage the tablet. Use dry hands to remove the tablet and place it in your mouth. Do not swallow the tablet whole. Allow it to dissolve in your mouth without chewing. Swallow several times as the tablet dissolves. To use ondansetron oral soluble film (strip) (Zuplenz): Keep the strip in the foil pouch until you are ready to use the medicine. Using dry hands, remove the strip and place it on your tongue. It will begin to dissolve right away. Do not swallow the strip whole. Allow it to dissolve in your mouth without chewing. Swallow several times after the strip dissolves. If desired, you may drink liquid to help swallow the dissolved strip. Wash your hands after using Zuplenz. Measure liquid medicine with the dosing syringe provided, or with a special dose-measuring spoon ormedicine cup. If you do not have a dose-measuring device, ask your pharmacist for one. Store at room temperature away from moisture, heat, and light. Store liquid medicine in an upright position. What happens if I miss a dose? Take the missed dose as soon as you remember. Skip the missed dose if it is almost time for your next scheduled dose. Do not take extra medicine to make up the missed dose. What happens if I overdose? Seek emergency medical attention or call the Poison Help line at . Overdose symptoms may include sudden loss of vision, severe constipation, feeling light-headed, or fainting. What should I avoid while taking ondansetron? Ondansetron may impair your thinking or reactions. Be careful if you drive or do anything that requires you to be alert. What are the possible side effects of ondansetron? Get emergency medical help if you have signs of an allergic reaction: rash, hives; fever, chills, difficult breathing; swelling of your face, lips, tongue, or throat. Call your doctor at once if you have: severe constipation, stomach pain, or bloating; headache with chest pain and severe dizziness, fainting, fast or pounding heartbeats; fast or pounding heartbeats; jaundice (yellowing of the skin or eyes); blurred vision or temporary vision loss (lasting from only a few minutes to several hours); high levels of serotonin in the body--agitation, hallucinations, fever, fast heart rate, overactivereflexes, nausea, vomiting, diarrhea, loss of coordination, fainting. Common side effects may include: diarrhea or constipation; headache; drowsiness; or tired feeling. This is not a complete list of side effects and others may occur. Call your doctor for medical advice about side effects. You may report side effects to FDA at 5-116-LCO-2802. What other drugs will affect ondansetron? Ondansetron can cause a serious heart problem, especially if you use certain medicines at the same time, including antibiotics, antidepressants, heart rhythm medicine, antipsychotic medicines, and medicines to treat cancer, malaria, HIV or AIDS. Tell your doctor about all medicines you use, and those you start or stop using during your treatment with ondansetron. Taking ondansetron while you are using certain other medicines can cause high levels of serotonin to build up in your body, a condition called 'serotonin syndrome,' which can be fatal. Tell your doctor if you also use: medicine to treat depression; medicine to treat a psychiatric disorder; a narcotic (opioid) medication; or medicine to prevent nausea and vomiting. This list is not complete and many other drugs can interact with ondansetron. This includes prescription and orsl-tos-[id number] medicines, vitamins, and herbal products. Give a list of all your medicines to any healthcare provider who treats you. Where can I get more information? Your pharmacist can provide more information about ondansetron. Remember, keep this and all other medicines out of the reach of children, never share your medicines with others, and use this medication only for the indication prescribed. Every effort has been made to ensure that the information provided by [employer] is accurate, up-to-date, and complete, but no guarantee is made to that effect. Drug information contained herein may be time sensitive. [employer] information has been compiled for use by healthcare practitioners and consumers in the [place] and therefore [employer] does not warrant that uses outside of the [place] are appropriate, unless specifically indicated otherwise. [employer]'s drug information does not endorse drugs, diagnose patients or recommend therapy. [employer] drug information isan informational resource designed to assist licensed healthcare practitioners in caring for their p atients and/or to serve consumers viewing this service as a supplement to, and not a substitute for, the expertise, skill, knowledge and judgment of healthcare practitioners. The absence of a warningfor a given drug or drug combination in no way should be construed to indicate that the drug or drug combination is safe, effective or appropriate for any given patient. [facility] does not assume any responsibility for any aspect of healthcare administered with the aid of information [facility] provides. The information contained herein is not intended to cover all possible uses, directions, precautions, warnings, drug interactions, allergic reactions, or adverse effects. If you have questions about the drugs you are taking, check with your doctor, nurse or pharmacist. Copyright 2121-7450 [facility] [place]. Version: 16.. Revision Date: 04/21/2023. cephalexin (sef a CHARLES in) What is the most important information I should know about cephalexin? You should not use this medicine if you are allergic to cephalexin or to similar antibiotics, such as Ceftin, Cefzil, Omnicef, and others. Tell your doctor if you are allergic to any drugs, especially penicillins or other antibiotics. What is cephalexin? Cephalexin is a cephalosporin (SEF a low spor in) antibiotic that is used to treat bacterial infections of the lungs, ear, skin, bones, bladder, and kidneys. Cephalexin is used to treat infections in adults and children who are at least 1 year old. Cephalexin may also be used for purposes not listed in this medication guide. What should I discuss with my healthcare provider before taking cephalexin? You should not use this medicine if you are allergic to cephalexin or any other cephalosporin antibiotic (cefdinir, cefadroxil, cefoxitin, cefprozil, ceftriaxone, cefuroxime, Omnicef, and others). Tell your doctor if you have ever had: an allergy to any drug (especially penicillin); liver or kidney disease; or intestinal problems, such as colitis. The liquid form of cephalexin may contain sugar. This may affect you if you have diabetes. Tell your doctor if you are or breast-feeding. How should I take cephalexin? Follow all directions on your prescription label and read all medication guides or instruction sheets. Use the medicine exactly as directed. Do not use cephalexin to treat any condition that has not been checked by your doctor. Measure liquid medicine carefully. Use the dosing syringe provided, or use a medicine dose-measuring device (not a kitchen spoon). Use this medicine for the full prescribed length of time, even if your symptoms quickly improve. Skipping doses can increase your risk of infection that is resistant to medication. Cephalexin will not treat a viral infection such as the flu or a common cold. Do not share cephalexin with another person, even if they have the same symptoms you have. This medicine can affect the results of certain medical tests. Tell any doctor who treats you that you are using cephalexin. Store the tablets and capsules at room temperature away from moisture, heat, and light. Store the liquid medicine in the refrigerator. Throw away any unused liquid after 14 days. What happens if I miss a dose? Take the medicine as soon as you can, but skip the missed dose if it is almost time for your next dose. Do not take two doses at one time. What happens if I overdose? Seek emergency medical attention or call the Poison Help line at . Overdose symptoms may include nausea, vomiting, stomach pain, diarrhea, and blood in your urine. What should I avoid while taking cephalexin? Antibiotic medicines can cause diarrhea, which may be a sign of a new infection. If you have diarrhea that is watery or bloody, call your doctor before using anti-diarrhea medicine. What are the possible side effects of cephalexin? Get emergency medical help if you have signs of an allergic reaction (hives, difficult breathing, swelling in your face or throat) or a severe skin reaction (fever, sore throat, burning eyes, skin pain, red or purple skin rash with blistering and peeling). Call your doctor at once if you have: severe stomach pain, diarrhea that is watery or bloody (even if it occurs months after your last dose); unusual tiredness, feeling light-headed or short of breath; easy bruising, unusual bleeding, purple or red spots under your skin; a seizure; pale skin, cold hands and feet; yellowed skin, dark colored urine; fever, weakness; or pain in your side or lower back, painful urination. Common side effects may include: diarrhea; nausea, vomiting; indigestion, stomach pain; or vaginal itching or discharge. This is not a complete list of side effects and others may occur. Call your doctor for medical advice about side effects. You may report side effects to FDA at 1-194-FXN-8140. What other drugs will affect cephalexin? Tell your doctor about all your other medicines, especially: metformin; or probenecid. This list is not complete. Other drugs may affect cephalexin, including prescription and lwch-jyv-hitgcbt medicines, vitamins, and herbal products. Not all possible drug interactions are listed here. Where can I get more information? Your pharmacist can provide more information about cephalexin. Remember, keep this and all other medicines out of the reach of children, never share your medicines with others, and use this medication only for the indication prescribed. Every effort has been made to ensure that the information provided by [employer] is accurate, up-to-date, and complete, but no guarantee is made to that effect. Drug information contained herein may be time sensitive. [employer] information has been compiled for use by healthcare practitioners and consumers in the [place] and therefore [employer] does not warrant that uses outside of the [place] are appropriate, unless specifically indicated otherwise. [employer] drug information does not endorse drugs, diagnose patients or recommend therapy. [employer] drug information isan informational resource designed to assist licensed healthcare practitioners in caring for their p atients and/or to serve consumers viewing this service as a supplement to, and not a substitute for, the expertise, skill, knowledge and judgment of healthcare practitioners. The absence of a warningfor a given drug or drug combination in no way should be construed to indicate that the drug or drug combination is safe, effective or appropriate for any given patient. [employer] does not assume any responsibility for any aspect of healthcare administered with the aid of information [employer] provides. The information contained herein is not intended to cover all possible uses, directions, precautions, warnings, drug interactions, allergic reactions, or adverse effects. If you have questions about the drugs you are taking, check with your doctor, nurse or pharmacist. Copyright [id number] [employer]. Version: 12.. Revision Date: 04/20/2023. acetaminophen and hydrocodone (a SEET a MIN oh fen and bony droe KOE done) Lortab Elixir, Verdrocet What is the most important information I should know about acetaminophen and hydrocodone? MISUSE OF OPIOID MEDICINE CAN CAUSE ADDICTION, OVERDOSE, OR . Keep the medication in a place where others cannot get to it. Taking opioid medicine during may cause life-threatening withdrawal symptoms in the . Fatal side effects can occur if you use opioid medicine with alcohol, or with other drugs that cause drowsiness or slow your breathing. Stop taking this medicine and call your doctor right away if you have skin redness or a rash that spreads and causes blistering and peeling. What is acetaminophen and hydrocodone? Acetaminophen and hydrocodone is a combination medicine used to relieve moderate to severe pain. Acetaminophen and hydrocodone contains an opioid medicine, and may be habit-forming. Acetaminophen and hydrocodone may also be used for purposes not listed in this medication guide. What should I discuss with my healthcare provider before taking acetaminophen and hydrocodone? You should not use this medicine if you are allergic to acetaminophen or hydrocodone, or if you have: severe asthma or breathing problems; or a blockage in your stomach or intestines. Tell your doctor if you have ever had: breathing problems, sleep apnea (breathing stops during sleep); liver disease; a drug or alcohol addiction; kidney disease; a head injury or seizures; urination problems; or problems with your thyroid, pancreas, or gallbladder. If you use opioid medicine while you are , your baby could become dependent on the drug. This can cause life-threatening withdrawal symptoms in the baby after it is born. Babies born dependent on opioids may need medical treatment for several weeks. Ask a doctor before using opioid medicine if you are . Tell your doctor if you notice severe drowsiness or slow breathing in the nursing baby. How should I take acetaminophen and hydrocodone? Follow all directions on your prescription label. Never take this medicine in larger amounts, or for longer than prescribed. An overdose can damage your liver or cause . Tell your doctor if you feel an increased urge to use more of this medicine. Never share this medicine with another person, especially someone with a history of drug abuse or addiction. MISUSE CAN CAUSE ADDICTION, OVERDOSE, OR . Keep the medicine in a place where others cannot get to it. Selling or giving away this medicine is against the law. Measure liquid medicine carefully. Use the dosing syringe provided, or use a medicine dose-measuring device (not a kitchen spoon). If you need surgery or medical tests, tell the doctor ahead of time that you are using this medicine. You should not stop using this medicine suddenly. Follow your doctor's instructions about tapering your dose. Store at room temperature away from moisture and heat. Keep track of your medicine. You should be aware if anyone is using it improperly or without a prescription. Do not keep leftover opioid medication. Just one dose can cause in someone using this medicine accidentally or improperly. Ask your pharmacist where to locate a drug take-back disposal program.If there is no take-back program, flush the unused medicine down the toilet. What happens if I miss a dose? Since this medicine is used for pain, you are not likely to miss a dose. Skip any missed dose if itis almost time for your next dose. Do not use two doses at one time. What happens if I overdose? Seek emergency medical attention or call the Poison Help line at . An overdose of this medicine can be fatal, especially in a child or other person using the medicine without a prescription. Overdose symptoms may include nausea, vomiting, sweating, severe drowsiness, pinpoint pupils, slow breathing, or no breathing. Your doctor may recommend you get naloxone (a medicine to reverse an opioid overdose) and keep it with you at all times. A person caring for you can give the naloxone if you stop breathing or don't wake up. Your caregiver must still get emergency medical help and may need to perform CPR (cardiopulmonary resuscitation) on you while waiting for help to arrive. Anyone can buy naloxone from a pharmacy or local health department. Make sure any person caring foryou knows where you keep naloxone and how to use it. What should I avoid while taking acetaminophen and hydrocodone? Avoid driving or operating machinery until you know how this medicine will affect you. Dizziness ordrowsiness can cause falls, accidents, or severe injuries. Do not drink alcohol. Dangerous side effects or could occur. Ask a doctor or pharmacist before using any other medicine that may contain acetaminophen (sometimes abbreviated as APAP). Taking certain medications together can lead to a fatal overdose. What are the possible side effects of acetaminophen and hydrocodone? Get emergency medical help if you have signs of an allergic reaction: hives; difficulty breathing; swelling of your face, lips, tongue, or throat. Opioid medicine can slow or stop your breathing, and may occur. A person caring for you should give naloxone and/or seek emergency medical attention if you have slow breathing with long pauses,blue colored lips, or if you are hard to wake up. In rare cases, acetaminophen may cause a severe skin reaction that can be fatal. This could occur even if you have taken acetaminophen in the past and had no reaction. Stop taking this medicine and call your doctor right away if you have skin redness or a rash that spreads and causes blistering andpeeling. Call your doctor at once if you have: noisy breathing, sighing, shallow breathing, breathing that stops; a light-headed feeling, like you might pass out; liver problems--nausea, upper stomach pain, tiredness, loss of appetite, dark urine, shannan-colored stools, jaundice (yellowing of the skin or eyes); low cortisol levels-- nausea, vomiting, loss of appetite, dizziness, worsening tiredness or weakness; o high levels of serotonin in the body--agitation, hallucinations, fever, sweating, shivering, fast heart rate, muscle stiffness, twitching, loss of coordination, nausea, vomiting, diarrhea. Serious breathing problems may be more likely in older adults and in those who are debilitated or have wasting syndrome or chronic breathing disorders. Common side effects include: dizziness, drowsiness, feeling tired; nausea, vomiting, stomach pain; constipation; or headache. This is not a complete list of side effects and others may occur. Call your doctor for medical advice about side effects. You may report side effects to FDA at 9-166-MOD-0137. What other drugs will affect acetaminophen and hydrocodone? You may have breathing problems or withdrawal symptoms if you start or stop taking certain other medicines. Tell your doctor if you also use an antibiotic, antifungal medication, heart or blood pressure medication, seizure medication, or medicine to treat HIV or hepatitis C. Opioid medication can interact with many other drugs and cause dangerous side effects or . Be sure your doctor knows if you also use: cold or allergy medicines, bronchodilator asthma/COPD medication, or a diuretic ('water pill'); medicines for motion sickness, irritable bowel syndrome, or overactive bladder; other opioids--opioid pain medicine or prescription cough medicine; a sedative like Valium--diazepam, alprazolam, lorazepam, Xanax, Klonopin, Versed, and others; drugs that make you sleepy or slow your breathing--a sleeping pill, muscle relaxer, medicine to treat mood disorders or mental illness; drugs that affect serotonin levels in your body--a stimulant, or medicine for depression, Parkinson's disease, migraine headaches, serious infections, or nausea and vomiting. This list is not complete. Other drugs may affect acetaminophen and hydrocodone, including prescription and vpur-jwr-rbguzbk medicines, vitamins, and herbal products. Not all possible interactions are listed here. Where can I get more information? Your doctor or pharmacist can provide more information about acetaminophen and hydrocodone. Remember, keep this and all other medicines out of the reach of children, never share your medicines with others, and use this medication only for the indication prescribed. Every effort has been made to ensure that the information provided by [employer] is accurate, up-to-date, and complete, but no guarantee is made to that effect. Drug information contained herein may be time sensitive. [employer] information has been compiled for use by healthcare practitioners and consumers in the [place] and therefore [employer] does not warrant that uses outside of the [place] are appropriate, unless specifically indicated otherwise. [employer] drug information does not endorse drugs, diagnose patients or recommend therapy. [employer] drug information isan informational resource designed to assist licensed healthcare practitioners in caring for their p atients and/or to serve consumers viewing this service as a supplement to, and not a substitute for, the expertise, skill, knowledge and judgment of healthcare practitioners. The absence of a warningfor a given drug or drug combination in no way should be construed to indicate that the drug or drug combination is safe, effective or appropriate for any given patient. [employer] does not assume any responsibility for any aspect of healthcare administered with the aid of information [employer] provides. The information contained herein is not intended to cover all possible uses, directions, precautions, warnings, drug interactions, allergic reactions, or adverse effects. If you have questions about the drugs you are taking, check with your doctor, nurse or pharmacist. Copyright 4538-3909 [employer]. Version: 19.. Revision Date: 05/09/2023. Education Materials Urinary Tract Infections in Women Urinary tract infections (UTIs) are most often caused by bacteria. These bacteria enter the urinarytract. The bacteria may come from outside the body. Or they may travel from the skin outside the rectum or vagina into the urethra. Female anatomy makes it easy for bacteria from the bowel to enter awoman s urinary tract, which is the most common source of UTI. This means women develop UTIs more often than men. Pain in or around the urinary tract is a common UTI symptom. But the only way to knowfor sure if you have a UTI for the healthcare provider to test your urine. The two tests that may be done are the urinalysis and urine culture. Types of UTIs Cystitis. A bladder infection (cystitis) is the most common UTI in women. You may have urgent or frequent urination. You may also have pain, burning when you urinate, and bloody urine. Urethritis. This is an inflamed urethra, which is the tube that carries urine from the bladder to outside the body. You may have lower stomach or back pain. You may also have urgent or frequent urination. Pyelonephritis. This is a kidney infection. If not treated, it can be serious and damage your kidneys. In severe cases, you may need to stay in the hospital. You may have a fever and lower back pain. Medicines to treat a UTI Most UTIs are treated with antibiotics. These kill the bacteria. The length of time you need to take them depends on the type of infection. It may be as short as 3 days. If you have repeated UTIs, you may need a low-dose antibiotic for several months. Take antibiotics exactly as directed. Don t stop taking them until all of the medicine is gone. If you stop taking the antibiotic too soon, the infection may not go away. You may also develop a resistance to the antibiotic. This can make it much harder to treat. Lifestyle changes to treat and prevent UTIs The lifestyle changes below will help get rid of your UTI. They may also help prevent future UTIs. Drink plenty of fluids. This includes water, juice, or other caffeine-free drinks. Fluids help flush bacteria out of your body. Empty your bladder. Always empty your bladder when you feel the urge to urinate. And always urinatebefore going to sleep. Urine that stays in your bladder can lead to infection. Try to urinate before and after sex as well. Practice good personal hygiene. Wipe yourself from front to back after using the toilet. This helpskeep bacteria from getting into the urethra. Use condoms during sex. These help prevent UTIs caused by sexually transmitted bacteria. Also don'tuse spermicides during sex. These can increase the risk for UTIs. Choose other forms of control instead. For women who tend to get UTIs after sex, a low-dose of a preventive antibiotic may be used. Be sure to discuss this option with your healthcare provider. Follow up with your healthcare provider as directed. He or she may test to make sure the infection has cleared. If needed, more treatment may be started. 3272-2090 [employer]. [address] [place] [address]. All rights reserved. This information is not intended as a substitute for professional medical care. Always follow yourhealthcare professional's instructions. Pancreatitis The pancreas is an organ in the abdomen that secretes digestive juices into the stomach. Pancreatitis is an inflammation of the pancreas. In many cases, it is caused when the duct that connects the pancreas and gallbladder is blocked by a gallstone. Heavy alcohol use is another major cause. Less common causes can include medicines, trauma, certain medical procedures, viruses, and toxins. Sometimes the cause of pancreatitis cannot be found. Genetic testing is sometimes done in those cases, especially if there is a family history of pancreas disease. Symptoms of pancreatitis include: Severe abdominal pain Nausea and vomiting Severe indigestion Racing heart Fever If the pancreatitis becomes chronic, diarrhea, chronic pain, weight loss, and poor nutrition can result. At first, pancreatitis may be treated in the hospital. It may be diagnosed by history, exam, blood tests, and sometimes imaging studies. There, fluids and medicines can be provided. The underlying cause of the problem must also be treated to prevent further problems. If gallstones are the cause, you and your healthcare provider can discuss options for treating them. This usually results in gallbladder surgery. Sometimes another test must be done to clear the drainage ducts of a blocked gallstones. If alcohol is the cause, talk with your healthcare provider about a program to help you stop drinking. Home care Don't drink alcohol. Rest in bed or sit up in a chair until you feel better. Take medicines as prescribed. If you were given an antibiotic for infection, take it until it is gone, even if you feel better. Let your healthcare provider know if you vomit up your medicine. Tips for eating and drinking: If instructed, avoid eating or drinking until nausea and vomiting go away. Try sipping clear liquids to prevent dehydration. When you begin eating again, start with small amounts. Have small, more frequent meals rather than larger meals. Low fat meals are best. Follow-up care Follow up with your healthcare provider as advised. When to seek medical advice Call your healthcare provider right away for any of the following: Continued or worsening pain Repeated vomiting Dizziness, weakness Fever of 100.4 F (38 C) or higher, or as directed by your healthcare provider Severe muscle cramps Call 911 Call 911 if you have any of the following: Vomiting blood or large amounts of blood in stool Seizure Loss of consciousness [id number] [employer]. [address] [place] [address]. All rights reserved. This information is not intended as a substitute for professional medical care. Always follow yourhealthcare professional's instructions. Additional Information VACCINATE! IT SAVES LIVES! Members of the community who have not yet received the COVID-19 vaccine and would like to receive it can visit one of [facility] vaccine clinics. There are many vaccine clinic locations within the [facility]. For locations and available times, please visit [email or web address] It is important to note that some COVID mobile vaccine clinics are held outdoors and may be canceled in rainy or stormy conditions. To learn more about pediatric vaccinations (ages 5-11), we invite you to visit the [facility] webpage. [email or web address] [email or web address] learn more about the COVID-19 vaccine, we invite you to visit the CDC website for a list of frequently asked questions. https://www.cdc.gov/coronavirus/2019-ncov/vaccines/faq.html [facility] Patient [facility] Access Instructions: Stay connected with your healthcare team and access your personal medical information anytime with the [facility] Patient Portal. If you would like a full copy of your medical records please contact the [facility] Medical Records Department Tuesday through Tuesday between 8a.m. and 4:30p.m. Please follow the directions below to access the portal: 1.Access the email account you provided upon registration to the [facility].2.Look for an invitation email from [facility].3.Open the email and access the invitation link: Accept Invitation to [facility]4.Fill in the required azul to create your account. Sign into [email or web address] with your username and password that you created in the above steps to stay up to date. You can then view a summary of results, a summary of your visits, and the ability to download your summaries to your computer or send the information securely to a physician. Remember that your healthcare information is confidential, so carefully consider who you will allow to register on the [facility] Patient Portal for access to your information. You can also access the [facility] Patient Portal on the [employer]. Simply click on Health Records under [employer] and then click on the [employer] logo. HOW TO SAFELY DISPOSE OF PRESCRIPTION MEDICATIONS Please use one of the following methods to safely dispose of your unused medications. 1.Use a drug disposal kit: the drug disposal pouch allows you to safely discard your old and unuseddrugs. Ask your nurse to give you one when you are discharged.2.Visit a local take-back location: Many local pharmacies and police departments have programs that collect old and unwanted prescriptiondrugs. Call your local pharmacy or go to [email or web address] to find one close to you.3.Make use of household items: Use cat litter or old coffee grounds to dispose medications if other options arenot available. Mix your drugs with these household products, seal them in an airtight container andthrow it into the garbage. Call [facility]: [phone] to be sure your drugs can be disposed of in this way. Some medicines may require a different approach.4.Never flush your medications down the toilet. IF YOU HAVE BEEN PRESCRIBED AN OPIOIDS FOR PAIN If you have been prescribed an opioid (such as hydrocodone, oxycodone or morphine), it is critical to understand the possible side effects and risks of opioid pain medications. Even when taken as directed, opioids can have several side effects including: Tolerance, meaning you might need to take more of a medication for the same pain relief. Nausea, vomiting and/or constipation. Sleepiness, dizziness, dry mouth, confusion, depression or itching. Physical dependence, meaning you have withdrawal symptoms when a medication is stopped ? this can develop within a few days. KNOW YOUR RESPONSIBILITIES It is important to know exactly how much and how often to take the opioid pain medications you are prescribed. Never take opioids in higher amounts or more often than prescribed. Do not combine opioids with alcohol or other drugs that cause drowsiness, such as benzodiazepines, also known as benzos,including diazepam and alprazolam, muscle relaxants or sleep aids. Never sell or share prescriptionopioids. This is illegal. Store opioids in a secure place and out of reach of others (including children, family, friends and visitors). The last page(s) of this document has been signed and retained as a CHART COPY Signatures Patient Education Materials Urinary Tract Infections in Women Pancreatitis Medication Leaflets ondansetron (oral), cephalexin, acetaminophen and hydrocodone My discharge plan and instructions have been reviewed and explained to me and IMATY AMANDA M understand my current condition and have read and understand these discharge instructions. I have received a written copy of the plan/instructions. If I have questions, I am aware that I should contact my doctor. 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/Time: Relationship to Patient: Witness Name/Signature: Date/Time: [facility] Progress note No data available for this section [facility] Reason for referral (narrative)* Consultation (Routine) - Authorized Specialty Diagnoses / Procedures Referred By Lester almaraz Referred To Contact Gastroenterology Diagnoses Chronic pancreatitis, unspecified pancreatitis type (CMS/HCC) Procedures Follow [place] [address] [address] Department of Medicine-[place] [facility] [place] [address] Referral ID Status Reason Start Date Expiration Date V isits Requested Visits Authorized [id number] Authorized 08/03/2023 08/02/2024 1 1 * Medications - Pending Review Specialty Diagnoses / Procedures Referred By Contac t Referred To Contact Diagnoses Chronic pancreatitis, unspecified pancreatitis type (CMS/HCC) [place] [address] [facility] Department of [place] [address] Referral ID Status Reason Start Date Expiration Date V isits Requested Visits Authorized [id number] Pending Review 1 1 [facility] Work Phone: Reeldo for referral (narrative)* Consultation (Routine) - Authorized Specialty Diagnoses / Procedures Referred By Contac t Referred To Contact Family Medicine / Primary Care Diagnoses Chronic pancreatitis, unspecified pancreatitis type (CMS/HCC) [place]ón [place] [address] [facility] Department [place] [address] Referral ID Status Reason Start Date Expiration Date Visits Requested Visits Authorized [id number] Authorized Specialty Services Required 11/15/2023 11/14/2024 1 1 [facility] Work Phone: Rekhuy for referral (narrative)* Consultation (Routine) - Authorized Specialty Diagnoses / Procedures Referred By Contac t Referred To Contact Pharmacy Diagnoses Anticoagulant long-term use Brea Nolen MD [address] [place] [address] Referral ID Status Reason Start Date Expiration Date Visits Requested Visits Authorized [id number] Authorized Specialty Services Required 03/01/2024 03/01/2025 1 1 T [facility] Work Phone: Reason for visit Narrative* Auth/Cert Specialty Diagnoses / Procedures Referred By Contac t Referred To Contact Diagnoses Generalized abdominal pain necrotizing pancreatitis [place] [address] [facility] [place] [address] [facility] [address] [place] [address] Referral ID Status Reason Start Date Expiration Date Visits Re quested Visits Authorized [id number] 1 1 [facility] Work Phone: Summary Purpose Family History No Family History Records FoundUnknown Family Member Name Dates Details Family history of coronary a rtery disease: Mother(V17.3, Z82.49) Status:Active Unknown Family Member Name Dates Details Family history of coronary a rtery disease: Mother(V17.3, Z82.49) Status:Active Advance Directives No Advanced Directives Records FoundDocuments on File Type Date Recorded Patient Chain Hoist Operator Expl anation Advance Directive(s) 05/22/2021 8:45 PM Advance Directive(s) 05/22/2021 10:16 PM Advance Directive(s) 05/22/2021 10:17 PM Advance Directive(s) 03/05/2020 6:31 PM Advance Directive(s) 11/26/2019 12:11 PM Advance Directive(s) 11/26/2019 12:27 PM Documents on File Type Date Recorded Patient 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 Hoist 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 Expl anation Advance Directive(s) 05/22/2021 10:17 PM Latest Code Status on File Code Status Date Activated Date Inactivated Comments Full Code 11/10/2023 11:17 PM Question Answer Comments Plan of Care: Code Status Discussion Not Compl eted Decision Maker: Provider Rationale: Patient condition do es not warrant discussion Latest Code Status on File Code Status Date Activated Date Inactivated Comments Full Code 11/10/2023 11:17 PM Question Answer Comments Plan of Care: Code Status Discussion Not Compl eted Decision Maker: Provider Rationale: Patient condition do es not warrant discussion Date Activated Date Inactivated Comments 11/10/2023 11:17 PM Question Answer Comments Plan of Care: Code Status Discussion Not Compl eted Decision Maker: Provider Rationale: Patient condition does not warra nt discussion Date Activated Date Inactivated Comments 02/28/2024 4:05 AM Question Answer Comments Plan of Care: Code Status Discussion Completed Decision Maker: Patient Date Activated Date Inactivated Comments 02/16/2024 6:49 AM 02/28/2024 4:05 AM Question Answer Comments Plan of Care: Code Status Discussion Completed Decision Maker: Patient Date Activated Date Inactivated Comments 11/10/2023 11:17 PM 02/16/2024 6:49 AM Question Answer Comments Plan of Care: Code Status Discussion Not Compl eted Decision Maker: Provider Rationale: Patient condition does not warra nt discussion Date Activated Date Inactivated Comments 02/28/2024 4:05 AM Question Answer Comments Plan of Care: Code Status Discussion Completed Decision Maker: Patient Date Activated Date Inactivated Comments 02/16/2024 6:49 AM 02/28/2024 4:05 AM Question Answer Comments Plan of Care: Code Status Discussion Completed Decision Maker: Patient Date Activated Date Inactivated Comments 11/10/2023 11:17 PM 02/16/2024 6:49 AM Question Answer Comments Plan of Care: Code Status Discussion Not Compl eted Decision Maker: Provider Rationale: Patient condition does not warra nt discussion Chief Complaint * Patient verified my name and date of . * Patient presents to Pain Management for an evaluation and Tx. * BMI ____. Non-Smoker * Patient Referred by GI doctor at * Patient states that her pain is located abd pain. Rates her pain 2/10. Describes her pain as deep in nature. Pain started . Hunching over , or laying on her left side,makes the pain better. Laying Flat, or eating to much food makes the pain worst. * Recent CT scan , and ultrasounds done. * Surgical hx: hysterectomy , appendix , gall bladder and * Current Pain regimen : Tylenol and Motrin * Lives at home with her boyfriend. 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 Has 2 children , one grandchild.Highest level education bachelors in nursing. Reason for Referral Specialty Diagnoses / Procedures Referred By Contact Referred To Contact Gastroenterology Diagnoses Other chronic pancreatitis (CMS/HCC) Procedures EGD w Fluoro DC ESOPHAGOGASTRODUODENOSCOPY TRANSORAL DIAGNOSTIC DC EGD TRANSORAL BIOPSY SINGLE/[place] [address] [address] Department of [place] [address] Referral ID Status Reason Start Date Expiration Date V isits Requested Visits Authorized [id number] Authorized 11/15/2023 11/14/2024 1 1 Specialty Diagnoses / Procedures Referred By Contac t Referred To Contact Radiology Diagnoses Chronic pancreatitis, unspecified pancreatitis type (CMS/HCC) Procedures MRCP pancreas [place] [address] [facility] of [place] [address] Referral ID Status Reason Start Date Expiration Date Visits Requested Visits Authorized [id number] Authorized Perform Procedure 10/12/2023 10/11/2024 1 1 Specialty Diagnoses / Procedures Referred By Contac t [place]erred [place] [address] [facility] Department [place] [address] Referral ID Status Reason Start Date Expiration Date V isits Requested Visits Authorized [id number] Pending Review 08/26/2023 08/25/2024 1 1 Specialty Diagnoses / Procedures Referred By Contac t Referred To Contact Radiology Diagnoses Poor intravenous access Procedures IR CVC port placement Consult to Interventional Radiology Tianna Rasmussen MD [address] [place] [address] Referral ID Status Reason Start Date Expiration Date Visits Requested Visits Authorized [id number] Authorized Perform Procedure 3 08/09/2024 1 1 Additional Source Comments INFORMATION SOURCE (unrecogn ized section and content) DATE CREATED AUTHOR 03/10/2018 [facility] DATE CREATED AUTHOR AUTHOR'S ORGANIZ ATION 03/10/2018 [facility] DATE CREATED AUTHOR AUTHOR'S ORGANIZ ATION 03/10/2018 [facility] DATE CREATED AUTHOR AUTHOR'S ORGANIZ ATION 03/13/2018 [facility] DATE CREATED AUTHOR AUTHOR'S ORGANIZ ATION 07/14/2018 [facility] DATE CREATED AUTHOR AUTHOR'S ORGANIZ ATION 09/18/2019 [facility] DATE CREATED AUTHOR AUTHOR'S ORGANIZ ATION 12/17/2019 [facility] DATE CREATED AUTHOR AUTHOR'S ORGANIZ ATION 10/30/2020 [facility] DATE CREATED AUTHOR AUTHOR'S ORGANIZ ATION 05/01/2021 [facility] DATE CREATED AUTHOR AUTHOR'S ORGANIZ ATION 09/19/2021 [facility] DATE CREATED AUTHOR AUTHOR'S ORGANIZ ATION 04/30/2023 [facility] DATE CREATED AUTHOR AUTHOR'S ORGANIZ ATION 05/26/2023 [employer] DATE CREATED AUTHOR AUTHOR'S ORGANIZ ATION 12/17/2023 [facility] DATE CREATED AUTHOR AUTHOR'S ORGANIZ ATION 03/22/2024 [facility] ([place] DATE CREATED AUTHOR AUTHOR'S ORGANIZ ATION 06/04/[address] [facility] DATE CREATED AUTHOR AUTHOR'S ORGANIZ ATION 06/09/2024 [facility] DATE CREATED AUTHOR AUTHOR'S ORGANIZ ATION 06/09/2024 [facility] DATE CREATED AUTHOR AUTHOR'S ORGANIZ ATION 06/11/2024 [facility] DATE CREATED AUTHOR AUTHOR'S ORGANIZ ATION 06/15/2024 [facility] DATE CREATED AUTHOR AUTHOR'S ORGANIZ ATION 06/16/2024 [facility] Source Comments (unrecognize d section and content) In the event this informatio n is protected by the Federal Confidentiality of Alcohol and Drug Abuse Patient Records regulations: The Federal rules restrict any use of the information to criminally investigate or prosecute any alcohol or drug abuse patient.[facility] the event this information is protected by the Federal Confidentiality of Alcohol and Drug Abuse Patient Records regulations: The Federal rules restrict any use of the information to criminally investigate or prosecute any alcohol or drug abuse patient.[facility] the event this information is protected by the Federal Confidentiality of Alcohol and Drug Abuse Patient Records regulations: The Federal rules restrict any use of the information to criminally investigate or prosecute any alcohol or drug abuse patient.[facility] the event this information is protected by the Federal Confidentiality of Alcohol and Drug Abuse Patient Records regulations: The Federal rules restrict any use of the information to criminally investigate or prosecute any alcohol or drug abuse patient.[facility] the event this information is protected by the Federal Confidentiality of Alcohol and Drug Abuse Patient Records regulations: The Federal rules restrict any use of the information to criminally investigate or prosecute any alcohol or drug abuse patient.[facility] the event this information is protected by the Federal Confidentiality of Alcohol and Drug Abuse Patient Records regulations: The Federal rules restrict any use of the information to criminally investigate or prosecute any alcohol or drug abuse patient.[facility] Hospital[facility] the event this information is protected by the Federal Confidentiality of Alcohol and Drug Abuse Patient Records regulations: The Federal rules restrict any use of the information to criminally investigate or prosecute any alcohol or drug abuse patient.[facility] the event this information is protected by the Federal Confidentiality of Alcohol and Drug Abuse Patient Records regulations: The Federal rules restrict any use of the information to criminally investigate or prosecute any alcohol or drug abuse patient.[facility] the event this information is protected by the Federal Confidentiality of Alcohol and Drug Abuse Patient Records regulations: The Federal rules restrict any use of the information to criminally investigate or prosecute any alcohol or drug abuse patient.[facility] the event this information is protected by the Federal Confidentiality of Alcohol and Drug Abuse Patient Records regulations: The Federal rules restrict any use of the information to criminally investigate or prosecute any alcohol or drug abuse patient.[facility] the event this information is protected by the Federal Confidentiality of Alcohol and Drug Abuse Patient Records regulations: The Federal rules restrict any use of the information to criminally investigate or prosecute any alcohol or drug abuse patient.[facility] the event this information is protected by the Federal Confidentiality of Alcohol and Drug Abuse Patient Records regulations: The Federal rules restrict any use of the information to criminally investigate or prosecute any alcohol or drug abuse patient.[facility] the event this information is protected by the Federal Confidentiality of Alcohol and Drug Abuse Patient Records regulations: The Federal rules restrict any use of the information to criminally investigate or prosecute any alcohol or drug abuse patient.[facility] the event this information is protected by the Federal Confidentiality of Alcohol and Drug Abuse Patient Records regulations: The Federal rules restrict any use of the information to criminally investigate or prosecute any alcohol or drug abuse patient.[facility] the event this information is protected by the Federal Confidentiality of Alcohol and Drug Abuse Patient Records regulations: The Federal rules restrict any use of the information to criminally investigate or prosecute any alcohol or drug abuse patient.[facility] the event this information is protected by the Federal Confidentiality of Alcohol and Drug Abuse Patient Records regulations: The Federal rules restrict any use of the information to criminally investigate or prosecute any alcohol or drug abuse patient.[facility] the event this information is protected by the Federal Confidentiality of Alcohol and Drug Abuse Patient Records regulations: The Federal rules restrict any use of the information to criminally investigate or prosecute any alcohol or drug abuse patient.[facility] Reason for Visit (unrecogniz ed section and content) Reason Onset Date Comments Refill Request 12/28/2021 Reason Onset Date Comments Refill Request 04/13/2022 Reason Onset Date Comments Refill Request 05/06/2022 Reason Onset Date Comments Refill Request 06/14/2022 Reason Comments Other Reason Onset Date Comments Refill Request 09/07/2022 Reason Onset Date Comments Refill Request 10/10/2022 Reason Onset Date Comments Refill Request 11/08/2022 Reason Onset Date Comments Refill Request 12/07/2022 Reason Onset Date Comments Refill Request 01/25/2023 Reason Comments Psychiatric Evaluation Being transported from [facility] to [facility] in [place] for behavioral, anxiety and depression. En route patient became aggressive and confused so the lumber stacker driver came here for emergency assistance. Word salad upon admission to this ED, unable to communicate clearly or answers questions. Denies etoh or drug use at this time. Random words being continuously spoken. Reason Onset Date Comments Refill Request 05/08/2023 Reason Comments Other Chronic pancreatitis K86.1 Specialty Diagnoses / Procedures Referred By Contac t Referred To Contact Diagnoses Other chronic pancreatitis ([facility]) [place] [address] [facility] Department [place] [address] [place] [address] [place] [address] Referral ID Status Reason Start Date Expiration Date Visits Re quested Visits Authorized [id number] 1 1 Reason Onset Date Comments Refill Request 06/27/2023 Reason Comments Hospital Follow-up necrotizing pancreatitis Specialty Diagnoses / Procedures Referred By Contac t Referred To Contact Radiology Diagnoses Poor intravenous access Procedures IR CVC port placement Consult to Interventional Radiology Tianna Rasmussen MD [address] [place] [address] Referral ID Status Reason Start Date Expiration Date Visits Requested Visits Authorized [id number] Authorized Perform Procedure 3 08/09/2024 1 1 Specialty Diagnoses / Procedures Referred By Contac t Referred To Contact Radiology Diagnoses Poor intravenous access Procedures IR CVC check IR CVC port placement Shantell Rossi, EMERGENCY PLANNING AND RESPONSE MANAGER-INVESTOR RELATIONS DIRECTOR [address] [place] [address] Referral ID Status Reason Start Date Expiration Date Visits Requested Visits Authorized [id number] Authorized Perform Procedure 10/07/2023 10/06/2024 1 1 Reason Comments Follow-up Follow-up for 5 IV i nfusion therapy treatments Specialty Diagnoses / Procedures Referred By Contac t Referred To Contact Radiology Diagnoses Chronic pancreatitis, unspecified pancreatitis type (CMS/HCC) Procedures MRCP pancreas [place] [address] [facility] Department of Medicine-Gastroenterology [place] [phone] Referral ID Status Reason Start Date Expiration Date Visits Requested Visits Authorized [id number] Authorized Perform Procedure 10/12/2023 10/11/2024 1 1 Reason Comments Abdominal Pain Specialty Diagnoses / Procedures Referred By Contac t Referred To Contact Diagnoses Pseudocyst of pancreas Procedures No coded services entered Nancy Benedict, EMERGENCY PLANNING AND RESPONSE MANAGER-INVESTOR RELATIONS DIRECTOR [address] [address] [facility] [place] [address] [place] [address] Referral ID Status Reason Start Date Expiration Date Visits Re quested Visits Authorized [id number] 1 1 Specialty Diagnoses / Procedures Referred By Contact Referred To Contact Gastroenterology Diagnoses Other chronic pancreatitis (CMS/HCC) Procedures EGD w Fluoro DC ESOPHAGOGASTRODUODENOSCOPY TRANSORAL DIAGNOSTIC DC EGD TRANSORAL BIOPSY SINGLE/[place] [address] [address] [facility] Department [place] [address] Referral ID Status Reason Start Date Expiration Date V isits Requested Visits Authorized [id number] Authorized 11/15/2023 11/14/2024 1 1 Reason Comments Follow-up IV infusion Reason Comments Vomiting Patient ambulatory t o ED with c/o vomiting x 2 days. Reports 2-3 episodes of vomiting/day. C/o unable to keep down food or fluid. C/o fever 100.2 and constipation, last bowel movement this morning but hard stool. Hx necrotizing pancreatitis and bowel obstruction. Abdominal Pain Specialty Diagnoses / Procedures Referred By Contac t Referred To Contact Diagnoses Pulmonary embolism on right (Multi) Idiopathic chronic pancreatitis (Multi) Procedures No coded services entered Brea Nolen MD [address] [place] [address] [place] [address] [place] [address] Referral ID Status Reason Start Date Expiration Date Visits Re quested Visits Authorized [id number] 1 1 Reason Comments Abdominal Pain Amb to ED with c/o a bd pain. She reports that she had a bloody nose this am and then started having emesis with blood in it. She is on Coumadin for a PE. EKG done at Reason Comments Vaginal Problem Specialty Diagnoses / Procedures Referred By Contac t Referred To Contact Gynecology / MAKING DEPARTMENT PREPARER Diagnoses check painful spot Procedures EST WHI PATIENT Self Laury Orr APRN.INVESTOR RELATIONS DIRECTOR [address] [place] [address] Referral ID Status Reason Start Date Expiration Date Visits Re quested Visits Authorized [id number] Closed 06/08/2024 09/06/2024 1 1 Reason Comments Patient Update Care Teams (unrecognized sec tion and content) Plastic Maker Relationship Specialty Start Date End Date Cj Rivera CNP [address] [place] [phone] PCP - General Family Practice 03/05/20 Plastic Maker Relationship Specialty Start Date End Date Cj Rivera CNP [address] [place] [address] PCP - General Family Practice 03/05/20 Plastic Maker Relationship Specialty Start Date End Date Cj Rivera CNP [address] [place] [address] PCP - General Family Practice 03/05/20 Plastic Maker Relationship Specialty Start Date End Date Cj Rivera CNP [address] [place] [address] PCP - General Family Medicine 03/05/20 Plastic Maker Relationship Specialty Start Date End Date Cj Rivera CNP [address] [place] [address] PCP - General Family Medicine 03/05/20 Plastic Maker Relationship Specialty Start Date End Date Cj Rivera CNP [address] [place] [phone] PCP - General Family Medicine 03/05/20 Plastic Maker Relationship Specialty Start Date End Date Cj Rivera CNP [address] [place] [address] (Work) PCP - General Family Medicine 03/05/20 Plastic Maker Relationship Specialty [place] [address] [place] [address] PCP - General 01/07/16 Plastic Maker Relationship Specialty Start Date End Date Cj Rivera CNP [address] [place] [phone] (Work) PCP - General Family Medicine 03/05/20 Plastic Maker Relationship Specialty Start Date End Date Cj Rivera CNP [address] [place] [phone] (Work) PCP - General Family Medicine 03/05/20 Plastic Maker Relationship Specialty Start Date End Date Cj Rivera APRN-INVESTOR RELATIONS DIRECTOR [address] [place] [address] PCP - General 04/03/23 Plastic Maker Relationship Specialty Start Date End Date Cj Rivera APRN-CNP [address] [place] [address] PCP - General 04/03/23 Plastic Maker Relationship Specialty Start Date End Date Cj Rivera APRN-CNP PCP - General 04/03/23 Plastic Maker Relationship Specialty Start Date End Date Cj Rivera APRN-CNP PCP - General 04/03/23 [place] [address] [address] [facility] [place] [address] Surgeon Gastroenterology 10/12/23 Plastic Maker Relationship Specialty Start Date End Date Cj Rivera APRN-CNP PCP - General 04/03/23 [place] [address] [address] [facility] [place] [address] Surgeon Gastroenterology 10/12/23 Plastic Maker Relationship Specialty Start Date End Date Cj Rivera APRN-CNP PCP - General 04/03/23 [place] [address] [address] [facility] [place] [address] Surgeon Gastroenterology 10/12/23 Plastic Maker Relationship Specialty Start Date End Date Cj Rivera APRN-CNP PCP - General 04/03/23 [place] [address] [facility] [place] [address] Surgeon Gastroenterology 10/12/23 Plastic Maker Relationship Specialty Start Date End Date Cj Rivera APRN-CNP PCP - General 04/03/23 [place] [address] [facility] Medicine-Gastroenterology [place] [phone] Surgeon Gastroenterology 10/12/23 Plastic Maker Relationship Specialty Start Date End Date Cj Rivera APRN-CNP PCP - General 04/03/23 [place] [address] [facility] [place] [address] Surgeon Gastroenterology 10/12/23 Plastic Maker Relationship Specialty Start Date End Date Cj Rivera APRN-CNP PCP - General 04/03/23 [place] [address] [facility] [place] [address] Surgeon Gastroenterology 10/12/23 Plastic Maker Relationship Specialty Start Date End Date Cj Rivera APRN-CNP PCP - General 04/03/23 [place] [address] [facility] [place] [address] Surgeon Gastroenterology 10/12/23 Plastic Maker Relationship Specialty Start Date End Date Cj Rivera APRN-CNP [address] [place] [address] PCP - General Family [facility] 02/15/24 [place] [address] [facility] [place] [address] Surgeon Gastroenterology 10/12/23 Plastic Maker Relationship Specialty Start Date End Date Cj Rivera APRN-CNP [address] [place] [address] PCP - General Family Medicine 02/15/24 [place] [address] [facility] [place] [address] Surgeon Gastroenterology 10/12/23 Plastic Maker Relationship Specialty Start Date End Date Cj Rivera APRN-CNP [address] [place] [address] PCP - General Family Medicine 02/15/24 [place] [address] [address] Department of Medicine-Gastroenterology [place] [phone] Surgeon Gastroenterology 10/12/23 Plastic Maker Relationship Specialty Start Date End Date Cj Rivera CNP [address] [place] [address] PCP - General Family Medicine 03/05/20 Plastic Maker Relationship Specialty Start Date End Date Cj Rivera CNP [address] [place] [address] PCP - General [facility] Medicine 03/05/20 Plastic Maker Relationship Specialty Start Date End Date Cj Rivera CNP [address] [place] [address] PCP - General Family Medicine 03/05/20 Care Team (unrecognized sect ion and content) Personnel Name: CJ RIVERA EMERGENCY PLANNING AND RESPONSE MANAGER-INVESTOR RELATIONS DIRECTOR Address: Address: [address] [place] [address] Care Team Personnel Name: CJ RIVERA APRN-INVESTOR RELATIONS DIRECTOR Position: P4 Advanced Practice Nurse Med Service: Active Provider Member Role: Primary Care Physician Address: Address: [address] [place] [address] Care Team Related Persons Name: LIZZ DOCKERY Name: LIZZ DOCKERY Name: LIZZ DOCKERY Address: [address] [id number] Address: Home [address] [place], [place] [id number] [place] Address: Temporary [address] [place], [place] [id number] Care Team Personnel Name: CJ RIVERA EMERGENCY PLANNING AND RESPONSE MANAGER-INVESTOR RELATIONS DIRECTOR Position: P4 Advanced Practice Nurse Med Service: Active Provider Member Role: Primary Care Physician Address: Address: [address] [place] [address]- Care Team Related Persons Name: LIZZ DOCKERY Name: LIZZ DOCKERY Name: LIZZ DOCKERY Address: Alternate [address] [place], [place] [id number] Address: Home [address] [place], [place] [id number] [place] Address: Temporary [address] [place] [phone] Care Team Personnel Name: CJ RIVERA APRN-INVESTOR RELATIONS DIRECTOR Position: P4 Advanced Practice Nurse Med Service: Active Provider Member Role: Primary Care Physician Address: Address: [address] [place] [address]- Care Team Related Persons Name: LIZZ DOCKERY Name: LIZZ DOCKERY Name: LIZZ DOCKERY Address: Alternate [address] [place], [place] [id number] Address: Home [address] [place] [phone] [place] Address: Temporary [address] [place] [phone] Care Team Personnel Name: CJ RIVERA APRN-INVESTOR RELATIONS DIRECTOR Position: P4 Advanced Practice Nurse Member Role: Primary Care Physician Address: Address: [address] [place] [address]- Name: AGNLE PUENTES DO Position: Resident Member Role: Resident Address: Address: [address] [place] [address] Emergency Resident [place] [id number] Name: YESSICA DIAZ PA-C Position: ED Physician Computer Equipment Installer Member Role: ED PA Address: Address: [address] [place] [address] [facility] [place] [id number] Name: Chester Redmond RN Position: ED RN Member Role: ED RN Name: WAQAR BOYLE MD Position: ED Physician Member Role: Attending Physician Address: Address: [address] [place] [address] [place] [address]- Care Team Related Persons Name: LIZZ DOCKERY Name: LIZZ DOCKERY Name: LIZZ DOCKERY Address: Alternate [address] [place] [id number] Address: Home [address] [place] [phone] [place] Address: Temporary [address] [place] [phone] Care Team Personnel Name: CJ RIVERA EMERGENCY PLANNING AND RESPONSE MANAGER-INVESTOR RELATIONS DIRECTOR Position: P4 Advanced Practice Nurse Member Role: Primary Care Physician Address: Address: [address] [place] [address]- Name: Stormy Salazar RN Position: AO RN Member Role: RN Name: SMITHA MARTÍNEZ MD Position: Resident Member Role: Resident Address: Address: [address] [place] [address]- [place] Name: YOANA WEAVER MD Position: ED Physician Member Role: ED Physician Address: Address: [facility] [address] [place] [address]- [place] Name: KAY Botello Position: AO RN Member Role: ED RN Care Team Related Persons Name: LIZZ DOCKERY Name: LIZZ DOCKERY Name: LIZZ DOCKERY Address: [address] [id number] Address: Home [address] [place] [phone] [place] Address: Temporary [address] [place] [phone] Care Team Personnel Name: CJ RIVERA EMERGENCY PLANNING AND RESPONSE MANAGER-INVESTOR RELATIONS DIRECTOR Position: P4 Advanced Practice Nurse Member Role: Primary Care Physician Address: Address: [address] [place] [address]- Name: Dary Silveira Position: P3 Registration- Tilting Head Band Sawyer Name: MOLINA QUIROZ DO Position: ED Physician Member Role: Attending Physician Address: Address: [address] [facility] [place] [address]- [place] Name: Chester Redmond RN Position: ED RN Member Role: ED RN Name: KALE FLORES PA-C Position: ED Physician Computer Equipment Installer Member Role: ED PA Address: Address: [address] [place] [address]- [place] Name: RESHMA GAGE MD Position: Resident Member Role: Resident Address: Address: [address] [facility] [place] [place] [address]- [place] Care Team Related Persons Name: LIZZ DOCKERY Name: LIZZ DOCKERY Care Team Personnel Name: CJ RIVERA APRN-INVESTOR RELATIONS DIRECTOR Position: P4 Advanced Flatbed Owner Operator Member Role: Primary Care Physician Address: Address: [address] [place] [address] Name: JULIANNE FLANNERY DO Position: Resident Member Role: Resident Address: Address: [facility] [address] [place] [address] Name: Thang Connors RN Position: RN Member Role: RN Name: COLTON BAE MD Position: ED Physician Member Role: Attending Physician Address: Address: [facility] [address] [place] [address].[address] Care Team Related Persons Name: LIZZ DOCKERY Name: LIZZ DOCKERY Care Team Personnel Name: CJ RIVERA Position: P4 Advanced Flatbed Owner Operator Member Role: Primary Care Physician Address: Address: [address] [place] [address] Name: JULIANNE FLANNERY DO Position: Resident Member Role: Resident Address: Address: [facility] [address] [place] [address] Name: ADINA WHITT MD Position: ED Physician Member Role: ED Physician Address: Address: [address] Care Team Related Persons Name: LIZZ DOCKERY Name: LIZZ DOCKERY <item><item><item> Privacy Markings (unrecogniz ed section and content) Section Author: Priti Calabrese PROHIBITION ON REDISCLOSURE OF CONFIDENTIAL INFORMATION This notice accompanies a disclosure of information concerning a client made to you with the consent of such client. Section Author: Priti Calabrese PROHIBITION ON REDISCLOSURE OF CONFIDENTIAL INFORMATION This notice accompanies a disclosure of information concerning a client made to you with the consent of such client. Section Author: Priti Calabrese PROHIBITION ON REDISCLOSURE OF CONFIDENTIAL INFORMATION This notice accompanies a disclosure of information concerning a client made to you with the consent of such client. Scheduled Active and Recently Administ ered Medications (unrecognized section and content) Medication Order 04/28/2023 04/29/2023 04/30/2023 droperidol (Inapsine) injection 5 mg (COMPLETED) 5 mg, IntraMUSCular, Once, On Tue04/30/23 at 0025, For 1 dose 0032 (Given - Provid er: Caron Saucedo RN) haloperidol lactate (Haldol) injection 5 mg (COMPLETED) 5 mg, IntraMUSCular, Once, On Tue04/29/23 at 2340, For 1 dose, IM route of administration preferred. Because of the risk of TdP and QT prolongation, ECG monitoring is recommended if haloperidol is given IV 2346 (Given - Provider: Caron Saucedo RN) LORazepam (Ativan) injection 2 mg (COMPLETED) 2 mg, IntraMUSCular, Once, On Tue04/29/23 at 2340, For 1 dose, For IV doses dilute dose with 1ml NS. 2347 (Given - Provider: Caron Saucedo RN) Scheduled Medication Order 06/16/2023 06/17/2023 06/18/2023 ARIPiprazole (Abilify) tablet 10 mg 10 mg, oral, Daily, First dose on 06/18/23 at 0900 0900 (Not Given - Pr ovider: Socorro Taylor RN - Reason: Patient/family refused) cloNIDine (Catapres) tablet 0.2 mg 0.2 mg, oral, Daily, First dose on 06/18/23 at 0900 0745 (Given - Provid er: Socorro Taylor RN)0900 (Canceled Entry - Provider: Socorro Taylor RN) divalproex (Depakote) EC tablet 250 mg 250 mg, oral, Every 12 hours scheduled, First dose on 06/18/23 at 0900, Do not crush, chew, or split. 0900 (Given - Provid er: Socorro Taylor RN)2100 (Due) fenofibrate (Triglide) tablet 160 mg 160 mg, oral, Daily, First dose on 06/18/23 at 0900 0900 (Given - Provid er: Socorro Taylor RN) furosemide (Lasix) tablet 40 mg 40 mg, oral, Daily, First dose on 06/18/23 at 0900 0748 (Given - Provid er: Socorro Taylor RN - Comment: med due now)0900 (Canceled Entry - Provider: Socorro Taylor RN - Comment: MED ALREADY GIVEN) hydroCHLOROthiazide (HYDRODiuril) tablet 25 mg 25 mg, oral, Daily, First dose on 06/18/23 at 0900 0800 (Given - Provid er: Socorro Taylor RN)0900 (Canceled Entry - Provider: Socorro Taylor RN - Comment: MED ALREADY GIVEN) lacosamide (Vimpat) tablet 100 mg 100 mg, oral, Every morning, First dose on 06/18/23 at 0900 0800 (Given - Provid er: Socorro Taylor RN)0900 (Canceled Entry - Provider: Socorro Taylor RN) lacosamide (Vimpat) tablet 200 mg 200 mg, oral, Nightly, First dose on 06/18/23 at 2100 2100 (Due) linaCLOtide (Linzess) capsule 290 mcg 290 mcg, oral, Daily before breakfast, First dose on 06/18/23 at 0700, Do not break or crush capsule. If difficulty swallowing, may sprinkle capsule contents in 30 mL water or 5 mL applesauce if swallowed without chewing. Use immediately after mixing. 0700 (Given - Provid er: Socorro Taylor RN) melatonin tablet 10 mg 10 mg, oral, Nightly, First dose on 06/18/23 at 2100 2100 (Due) metoprolol succinate XL (Toprol-XL) 24 hr tablet 25 mg 25 mg, oral, Daily, First dose on 06/18/23 at 0900, Do not crush or chew. 0800 (Given During D owntime - Provider: Socorro Taylor RN)0900 (Not Given - Provider: Socorro Taylor RN - Reason: Other - Comment: ALREADY GIVEN) mirtazapine (Remeron) tablet 7.5 mg 7.5 mg, oral, Nightly, First dose on 06/18/23 at 2100 2100 (Due) nicotine (Nicoderm CQ) 7 mg/24 hr patch 1 patch 1 patch, transdermal, Administer over 24 Hours, Daily, First dose on 06/18/23 at 0900 0900 (Not Given - Pr ovider: Socorro Taylor RN - Reason: Patient/family refused) nystatin (Mycostatin) 100,000 unit/gram powder Topical, 3 times daily, First dose on 06/18/23 at 0900, Apply to groin/pannus rash 0900 (Given - Provid er: Socorro Taylor RN)1500 (Given - Provider: Socorro Taylor RN)2100 (Due) pancrelipase (Hqq-Uzgt-Fpwg) (Creon) 12,000-38,000 -60,000 unit per capsule 3 capsule 3 capsule, oral, 3 times daily with meals, First dose on 06/18/23 at 0800, Administer whole with food and sufficient fluid; do not crush or chew. Contents may be sprinkled on soft acidic food (such as applesauce or bananas) if swallowed immediately without chewing. If ordered per G-tube, thoroughly mix capsule contents into acidic food (applesauce or bananas). Stir gently; do not crush spheres. Within 15 minutes of mixing, give via a 35 mL slip-tip syringe into a 16F or larger diameter tube, then flush with ~10 mL of water. 0800 (Given - Provid er: Socorro Taylor RN)1200 (Not Given - Provider: Socorro Taylor RN - Reason: Medication not available)1700 (Due) pantoprazole (ProtoNix) EC tablet 40 mg 40 mg, oral, 2 times daily before meals, First dose on 06/18/23 at 0700, Do not crush, chew, or split. 0700 (Given - Provid er: Socorro Taylor RN)1600 (Given - Provider: Socorro Taylor RN) potassium chloride CR (Klor-Con M20) ER tablet 20 mEq 20 mEq, oral, 2 times daily, First dose on 06/18/23 at 0900, Best given with food and a glass of water to minimize gastric irritation. Do not crush or chew. 0800 (Given - Provid er: Socorro Taylor RN)0900 (Not Given - Provider: Socorro Taylor RN - Reason: Other)2100 (Due) rivaroxaban (Xarelto) tablet 10 mg 10 mg, oral, Daily, First dose on 06/18/23 at 0900, Best administered with food or immediately before tube feedings. If ordered via NG or G-tube route, crush and mix with 50 mL water; give within 4 hours of mixing. 0900 (Given - Provid er: Socorro Taylor RN) rOPINIRole (Requip) tablet 0.5 mg 0.5 mg, oral, 2 times daily, First dose on 06/18/23 at 0900 0900 (Given - Provid er: Socorro Taylor RN)2100 (Due) valACYclovir (Valtrex) tablet 500 mg 500 mg, oral, Daily, First dose on 06/18/23 at 0900 0900 (Given - Provid er: Socorro Taylor RN) venlafaxine XR (Effexor-XR) 24 hr capsule 225 mg 225 mg, oral, Daily, First dose on 06/18/23 at 0900, Capsule may be swallowed whole, or may be opened and its contents sprinkled on applesauce if consumed immediately without chewing. Do not crush or chew. 0900 (Given - Provid er: Socorro Taylor RN) PRN Medication Order 06/16/2023 06/17/2023 06/18/2023 acetaminophen (Tylenol) tablet 975 mg 975 mg, oral, Every 8 hours PRN, pain mild (1-3), first line, Starting on 06/18/23 at 0000, If ordered PRN for pain, nurse is permitted to administer this medication for higher pain scores based on patient preference? Yes diphenhydrAMINE (BENADryl) capsule 25 mg 25 mg, oral, Every 4 hours PRN, allergies, Starting on 06/18/23 at 0000 ondansetron (Zofran) injection 4 mg 4 mg, intravenous, Every 6 hours PRN, nausea/vomiting, first line, Starting on 06/18/23 at 0000, When administering via IV Push, administer over 3-5 minutes. oxyCODONE (Roxicodone) immediate release tablet 5 mg 5 mg, oral, Every 4 hours PRN, pain severe (7-10), first line, Starting on 06/18/23 at 0000, If ordered PRN for pain, nurse is permitted to administer this medication for higher pain scores based on patient preference? Yes 0744 (Given - Provid er: Socorro Taylor RN)1227 (Given - Provider: Socorro Taylor RN)1626 (Given - Provider: Socorro Taylor RN) promethazine (Phenergan) tablet 25 mg 25 mg, oral, Every 6 hours PRN, nausea/vomiting, first line, Starting on 06/18/23 at 0000 Scheduled Medication Order 11/13/2023 11/14/2023 11/15/2023 ARIPiprazole (Abilify) tablet 10 mg 10 mg, oral, Daily, First dose on Tue11/11/23 at 0900 0914 (Given - Provider: Hanna Dey RN) 1535 (Given - Provider: Cherry Dickey RN) 1000 (Given - Provider: Nay Chapman RN) benztropine (Cogentin) tablet 0.5 mg 0.5 mg, oral, 2 times daily, First dose on Tue11/11/23 at 0020 0914 (Given - Provider: Hanna Dey RN)2046 (Given - Provider: Nadiya Agrawal RN) 1536 (Given - Provider: Cherry Dickey, KAY)2232 (Given - Provider: Nadiya Agrawal RN - Comment: dose unavailable) 1000 (Given - Provider: Nay Chapmna RN)2100 (Due) divalproex (Depakote) EC tablet 250 mg 250 mg, oral, 2 times daily, First dose on Tue11/11/23 at 0020, Do not crush, chew, or split. 0914 (Given - Provider: Hanna Dey RN)2046 (Given - Provider: Nadiya Agrawal RN) 1536 (Given - Provider: Cherry Dickey RN)2229 (Given - Provider: Nadiya Agrawal RN) 1000 (Given - Provider: Nay Chapman RN)2100 (Due) fenofibrate (Triglide) tablet 160 mg 160 mg, oral, Daily, First dose on Tue11/11/23 at 1300 0914 (Given - Provider: Hanna Dey RN) 1535 (Given - Provider: Cherry Dickey RN) 1000 (Given - Provider: Nay Chapman RN) furosemide (Lasix) tablet 40 mg 40 mg, oral, Daily, First dose on Tue11/11/23 at 0900 0913 (Given - Provider: Hanna Dey RN) 1535 (Given - Provider: Cherry Dickey RN) 1000 (Given - Provider: Nay Chapman RN) insulin lispro (HumaLOG) injection 0-5 Units 0-5 Units, subcutaneous, Every 4 hours, First dose on Tue11/10/23 at 2320, Insulin Lispro Corrective Scale #1 Hypoglycemia protocol Call LIP unit(s) if Blood Glucose is between 0 - 70 mg/dL 0 unit(s) if Blood glucose is between 71-150 1 unit(s) if Blood glucose is between 151-200 2 unit(s) if Blood glucose is between 201-250 3 unit(s) if Blood glucose is between 251-300 4 unit(s) if Blood glucose is between 301-350 5 unit(s) if Blood glucose is between 351-400 Notify provider unit(s) if Blood Glucose is greater than 400 mg/dL 0037 (Given - Provider: Nadiya Agrawal RN)0454 (Given - Provider: Nadiya Agrawal RN)0934 (Given - Provider: Hanna Dey RN)1234 (Given - Provider: Hanna Dey RN)1630 (Not Given - Provider: Hanna Dey RN - Reason: Patient/family refused)2103 (Given - Provider: Nadiya Agrawal RN) 0030 (Not Given - Provider: Nadiya Agrawal RN - Reason: NPO)0430 (Not Given - Provider: Nadiya Agrawal RN - Reason: NPO)0830 (Not Given - Provider: Cherry Dickey RN - Reason: NPO)1230 (Not Given - Provider: Cherry Dickey RN - Reason: Patient not available)1618 (Given - Provider: Cherry Dickey RN)2229 (Given - Provider: Nadiya Agrawal RN) 0030 (Not Given - Provider: Nadiya Agrawal RN - Reason: Post-procedure - Comment: last insulin was given 1 hour ago)0338 (Given - Provider: Nadiya Agrawal RN)1000 (Given - Provider: Nay Chapman RN - Comment: late breakfast)1230 (Not Given - Provider: Nay Chapman RN - Reason: Patient/family refused - Comment: Not eating)1755 (Given - Provider: Nay Chapman RN)2030 (Due - Provider: Ivon Davey [facility]) lactulose 20 gram/30 mL oral solution 20 g 20 g, oral, 2 times daily, First dose on Tue11/13/23 at 1745, Hold for diarrhea 0900 (Not Given - Provider: Cherry Dickey RN - Reason: Other - Comment: duplicaate)1532 (Given - Provider: Cherry Dickey RN)2240 (Given - Provider: Nadiya Agrawal RN - Comment: adjust per plan of care) 0900 (Not Given - Provider: Nay Chapman RN - Reason: Patient/family refused - Comment: c/o nausea)2100 (Due) lidocaine (Xylocaine) 10 mg/mL (1 %) injection 1 mg 1 mg (0.1 mL), subcutaneous, Once, On Tue11/14/23 at 1300, For 1 dose, Recovery (only), To be used for IV insertion ONLY 1300 (Due) metoprolol succinate XL (Toprol-XL) 24 hr tablet 25 mg 25 mg, oral, Daily, First dose on Tue11/11/23 at 0900, Do not crush or chew. 0928 (Given - Provider: Hanna Dey RN) 1535 (Given - Provider: Cherry Dickey RN) 1000 (Given - Provider: Nay Chapman RN) nystatin (Mycostatin) 100,000 unit/gram powder 1 Application 1 Application, Topical, 2 times daily, First dose on Tue11/12/23 at 0615, Apply to bilateral inguinal region 09 (Due)2048 (Given - Provider: Nadiya Agrawal RN) 0900 (Not Given - Provider: Cherry Dickey RN - Reason: Patient not available)2243 (Given - Provider: Nadiya Agrawal RN - Comment: pt refused) 1000 (Given - Provider: Nay Chapman RN)2100 (Due) pancrelipase (Fyk-Wgqr-Bqmo) (Creon) 12,000-38,000 -60,000 unit per capsule 2 capsule 2 capsule, oral, 3 times daily with meals, First dose on Tue11/11/23 at 0800, Administer whole with food and sufficient fluid; do not crush or chew. Contents may be sprinkled on soft acidic food (such as applesauce or bananas) if swallowed immediately without chewing. If ordered per G-tube, thoroughly mix capsule contents into acidic food (applesauce or bananas). Stir gently; do not crush spheres. Within 15 minutes of mixing, give via a 35 mL slip-tip syringe into a 16F or larger diameter tube, then flush with ~10 mL of water. 0800 (Not Given - Provider: Hanna Dey RN - Reason: Patient/family refused)1230 (Given - Provider: Hanna Dey RN)1700 (Not Given - Provider: aHnna Dey RN - Reason: Patient/family refused) 0800 (Not Given - Provider: Cherry Dickey RN - Reason: NPO)1200 (Not Given - Provider: Cherry iDckey RN - Reason: Patient/family refused)1700 (Not Given - Provider: Cherry Dickey RN - Reason: Patient/family refused) 0800 (Not Given - Provider: Nay Chapman RN - Reason: Patient/family refused)1200 (Not Given - Provider: Nay Chapman RN - Reason: Patient/family refused - Comment: Not eating)1700 (Not Given - Provider: Nay Chapman RN - Reason: Other - Comment: Patient not eating dinner) pantoprazole (ProtoNix) injection 40 mg 40 mg, intravenous, Daily, First dose on Tue11/11/23 at 0900, Reconstitute with 10 mL sodium chloride 0.9% for injection. Push over 2 minutes. Reconstitute with 10 mL sodium chloride 0.9% for injection. Push over 2 minutes. 0914 (Given - Provider: Hanna Dey RN) 1536 (Given - Provider: Cherry Dickey RN) 1000 (Given - Provider: Nay Chapman RN) potassium chloride CR (Klor-Con M20) ER tablet 20 mEq (CANCELED) 20 mEq, oral, Daily, First dose on Tue11/11/23 at 0900, Capsule may be swallowed whole, or may be opened and its contents sprinkled on applesauce if consumed immediately without chewing. Do not crush or chew. 912 (Given - Provider: Hanna Dey RN) potassium chloride CR (Klor-Con M20) ER tablet 20 mEq (CANCELED) 20 mEq, oral, 2 times daily, First dose (after last modification) on Tue11/13/23 at 2100, Capsule may be swallowed whole, or may be opened and its contents sprinkled on applesauce if consumed immediately without chewing. Do not crush or chew. 2044 (Given - Provider: Nadiya Agrawal RN) potassium chloride CR (Klor-Con M20) ER tablet 20 mEq 20 mEq, oral, 3 times daily, First dose (after last modification) on Tue11/14/23 at 0900, Capsule may be swallowed whole, or may be opened and its contents sprinkled on applesauce if consumed immediately without chewing. Do not crush or chew. 1549 (Given - Provider: Cherry Dickey RN)1602 (Given - Provider: Cherry Dickey RN)2127 (Given - Provider: Nadiya Agrawal RN) 0900 (Not Given - Provider: Nay Chapman RN - Reason: Patient/family refused - Comment: Nauseated)1500 (Not Given - Provider: Nay Chapman RN - Reason: Patient/family refused - Comment: c/o nausea)2100 (Due) potassium chloride CR (Klor-Con M20) ER tablet 20 mEq (COMPLETED) 20 mEq, oral, Once, On Tue11/14/23 at 0900, For 1 dose, Best given with food and plenty of water to minimize gastric irritation. Do not crush or chew. 1534 (Given - Provider: Cherry Dickey, KAY) rivaroxaban (Xarelto) tablet 10 mg 10 mg, oral, Daily with evening meal, First dose on Tue11/11/23 at 1700, Best administered with food or immediately before tube feedings. If ordered via NG or G-tube route, crush and mix with 50 mL water; give within 4 hours of mixing. 1700 (Dose Auto Held - Provider: Adelina Og DO) 1700 (Not Given - Provider: Cherry Dickey, RN - Reason: See Provider Order) 0826 (Unheld by provider - Provider: Chastity León MD)1755 (Given - Provider: Nay Chapman RN) valACYclovir (Valtrex) tablet 500 mg 500 mg, oral, Daily, First dose on Tue11/11/23 at 0900, Coverage: Herpes simplex, Infection Site: Genital 0914 (Given - Provider: Hanna Dey RN) 1532 (Given - Provider: Cherry Dickey, KAY) 1000 (Given - Provider: Nay Chapman RN) venlafaxine XR (Effexor-XR) 24 hr capsule 225 mg 225 mg, oral, Daily with breakfast, First dose (after last modification) on Tue11/14/23 at 0800, Capsule may be swallowed whole, or may be opened and its contents sprinkled on applesauce if consumed immediately without chewing. Do not crush or chew. 1328 (Held by provider - Provider: Chastity León MD - Reason: Other - Comment: Med rec) 0800 (Not Given - Provider: Cherry Dickey, RN - Reason: See Provider Order) 0800 (Dose Auto Held - Provider: Chastity León MD) venlafaxine XR (Effexor-XR) 24 hr capsule 75 mg (CANCELED) 75 mg, oral, Daily with breakfast, First dose on Tue11/11/23 at 0800, Capsule may be swallowed whole, or may be opened and its contents sprinkled on applesauce if consumed immediately without chewing. Do not crush or chew. 0914 (Given - Provider: Hanna Dey RN) Continuous Medication Order 11/13/2023 11/14/2023 11/15/2023 heparin 25,000 Units in dextrose 5% 250 mL (100 Units/mL) infusion (premix) 0-4,000 Units/hr (0-40 mL/hr), intravenous, Continuous, Starting on Tue11/11/23 at 1605, Until Discontinued, Low Intensity Heparin Protocol (70-124kg) Initial Dose: 12 units/kg/hr --> Use heparin calculator for units/hr rate Maximum Initial Dose: 1000 units/hr Recheck Heparin Assay, UFH level 4 hours after any rate change, or per protocol. Titration Table: Heparin Assay, UFH < 0.1: INCREASE rate by 300 units/hr. Heparin Assay, UFH 0.1 to 0.2: INCREASE rate by 200 units/hr. Heparin Assay, UFH 0.3 to 0.6: (THERAPEUTIC) DO NOT CHANGE Infusion Rate. Heparin Assay, UFH 0.7 to 1: DECREASE rate by 200 unit/hour. Heparin Assay, UFH 1.1 to 1.2: HOLD heparin infusion for 1 hour, then DECREASE rate by 200 units/hour. Heparin Assay, UFH > 1.2: HOLD heparin infusion for 1 hour, then recheck heparin assay. If repeat is > 0.6, continue to HOLD INFUSION. Confirm last draw was performed correctly (pump was paused for a minimum of 2 minutes, sample NOT drawn off line/lumen where medication was infusing) and contact provider for further orders. If repeat is <= 0.6, REDUCE previous infusion rate by 300 units/hour and restart infusion. Recheck Heparin Assay, UFH in 4 hours after dose reduction, resume nomogram. 0233 (Rate/Dose Verify - Provider: Nadiya Agrawal RN)0552 (New Bag - Provider: Nadiya Agrawal RN)2228 (New Bag - Provider: Nadiya Agrawal RN)2356 (Rate/Dose Verify - Provider: Nadiya Agrawal RN) 0156 (Rate/Dose Verify - Provider: Nadiya Agrawal RN)1444 (Held by provider - Provider: Chastity León MD - Reason: Other) PRN Medication Order 11/13/2023 11/14/2023 11/15/2023 acetaminophen (Tylenol) tablet 650 mg 650 mg, oral, Every 6 hours PRN, pain mild (1-3), first line, Starting on Tue11/11/23 at 0308, If ordered PRN for pain, nurse is permitted to administer this medication for higher pain scores based on patient preference? Yes 2047 (Given - Provider: Nadiya Agrawal RN) 212 (Given - Provider: Nadiya Agrawal RN) 0340 (Given - Provider: Nadiya Agrawal RN)1000 (Given - Provider: Nay Chapman RN) dextrose 10 % in water (D10W) infusion 0.3 g/kg/hr 104 kg (312 mL/hr), intravenous, Once as needed, For blood glucose less than 70 mg/dL after 30 minutes of intervention. Discontinue once blood glucose reaches 100 mg/dL., Starting on [place] 11/10/23 at 2316, For 1 dose, Discontinue once blood glucose reaches 100 mg/dL. dextrose 50 % injection 25 g 25 g, intravenous, Every 15 min PRN, For blood glucose less than or equal to 40 mg/dL, Starting on [place] 11/10/23 at 2316, May repeat until blood glucose level reaches 100 mg/dL or greater. Push 2 - 3 mL/minute if patient has secure IV access. diphenhydrAMINE (BENADryl) capsule 25 mg 25 mg, oral, Every 6 hours PRN, itching, Starting on [place] 11/10/23 at 2316 glucagon (Glucagen) injection 1 mg 1 mg, intramuscular, Every 15 min PRN, low blood sugar - see comments, For blood glucose less than or equal to 70 mg/dL and no IV access, Starting on Tue11/10/23 at 2316, Give until blood glucose is 100 mg/dL or greater. If patient DOES NOT HAVE secure IV access & patient is unconscious, NPO or is unable to eat or drink. heparin flush 100 unit/mL syringe 500 Units (COMPLETED) 500 Units (5 mL), intra-catheter, As needed, line care, Starting on Tue11/15/23 at 1728, For 1 dose 1811 (Given - Provider: Cici Jerez, KAY) HYDROmorphone (Dilaudid) injection 1 mg (CANCELED) 1 mg, intravenous, Every 4 hours PRN, pain severe (7-10), first line, Starting on Tue11/10/23 at 2315 0036 (Given - Provider: Nadiya Agrawal RN)0444 (Given - Provider: Nadiya Agrawal RN)0911 (Given - Provider: Hanna Dey RN)1416 (Given - Provider: Hanna Dey RN)1848 (Given - Provider: Hanna Dey RN)2310 (Given - Provider: Nadiya Agrawal RN) 0501 (Given - Provider: Nadiya Agrawal RN)0906 (Given - Provider: Tammy Sherwood RN - Comment: ok to give per MD Rea)1352 (Given - Provider: Cherry Dickey RN)1803 (Given - Provider: Cherry Dickey RN)2232 (Given - Provider: Nadiya Agrawal RN) 0313 (Given - Provider: Nadiya Agrawal RN)0754 (Given - Provider: Nadiya Agrawal RN) melatonin tablet 10 mg 10 mg, oral, Daily PRN, sleep, Starting on Tue11/10/23 at 2315 2048 (Given - Provider: Nadiya Agrawal RN) 2228 (Given - Provider: Nadiya Agrawal RN) nicotine polacrilex (Nicorette) gum 2 mg 2 mg, Mouth/Throat, Every 2 hour PRN, smoking cessation, nicotine craving, urge to smoke, Starting on Tue11/11/23 at 0141, Instruct patient to chew into gum, then place between the cheek and gum to enhance absorption. To increase chances of quitting, recommended to chew and park at least 9 pieces per day in the first 6 weeks of cessation., Indications: nicotine dependence ondansetron (Zofran) injection 4 mg(Linked Group 1) 4 mg, intravenous, Every 6 hours PRN, nausea/vomiting, second line, nausea, vomiting,, Starting on [place] 11/10/23 at 2315, Give IV if patient is unable to take orally. When administering via IV Push, administer over 3-5 minutes. 0444 (Given - Provider: Nadiya Agrawal RN)0448 (See Alternative - Provider: Nadiya Agrawal RN) 0501 (Not Given - Provider: Nadiya Agrawal RN - Reason: Patient/family refused)1205 (Given - Provider: YOHANNES Gonzales) ondansetron (Zofran) injection 4 mg 4 mg, intravenous, Once as needed, nausea/vomiting, first line, Starting on Tue11/14/23 at 1238, For 1 dose, Recovery (only), When administering via IV Push, administer over 3-5 minutes. ondansetron ODT (Zofran-ODT) disintegrating tablet 4 mg(Linked Group 1) 4 mg, oral, Every 6 hours PRN, nausea/vomiting, first line, nausea, vomiting,, Starting on [place] 11/10/23 at 2315, Patient should allow tablet to dissolve on tongue. Do not remove from blister pack until just before administering. 0444 (See Alternative - Provider: Nadiya Agrawal RN)0448 (Given - Provider: Nadiya Agrawal RN) 0501 (See Alternative - Provider: Nadiya Agrawal RN)1205 (See Alternative - Provider: YOHANNES Gonzales) oxyCODONE (Roxicodone) immediate release tablet 5 mg 5 mg, oral, Every 6 hours PRN, pain severe (7-10), first line, Starting on Tue11/15/23 at 1150, If ordered PRN for pain, nurse is permitted to administer this medication for higher pain scores based on patient preference? Yes 1210 (Given - Provider: Nay Chapman RN)1810 (Given - Provider: Nay Chapman RN) oxygen (O2) therapy inhalation, Continuous PRN - O2/gases, other, Starting on Tue11/14/23 at 1238, Recovery (only), Device: Nasal Cannula, Rate in liters per minute: Other, Custom Value: 1-6 LPM, Keep O2 Sat Above: 92% polyethylene glycol (Glycolax, Miralax) packet 17 g 17 g, oral, Daily PRN, constipation, Starting on [place] 11/10/23 at 2314, Bowel Regimen - for prevention of constipation. promethazine (Phenergan) 12.5 mg in sodium chloride 0.9% 50 mL IV 12.5 mg, intravenous, Administer over 15 Minutes, Every 6 hours PRN, nausea/vomiting, first line, Starting on 11/13/23 at 1723 2310 (New Bag - Provider: Nadiya Agrawal RN)2325 (Stopped - Provider: Nadiya Agrawal RN) 0546 (New Bag - Provider: Nadiya Agrawal RN)0601 (Stopped - Provider: Nadiya Agrawal RN)1634 (New Bag - Provider: Cherry Dickey RN)1649 (Stopped - Provider: Cherry Dickey RN - Comment: 12.5 mg) 1430 (New Bag - Provider: Nay Chapman RN)1445 (Stopped - Provider: Nay Chapman RN) promethazine (Phenergan) 6.25 mg in sodium chloride 0.9% 50 mL IV (COMPLETED) 6.25 mg, intravenous, Administer over 15 Minutes, Once as needed, Nausea/vomiting, second line, Starting on 11/14/23 at 1238, For 1 dose, Recovery (only) 0145 (New Bag - Provider: Nadiya Agrawal RN)0200 (Stopped - Provider: Nadiya Agrawal RN) Linked Groups Order Group 1: ondansetron ODT (Zofran-ODT) disintegrating tablet 4 mgJump to med 4 mg, oral, Every 6 hours PRN, nausea/vomiting, first line, nausea, vomiting,, Starting on [place] 11/10/23 at 2315
Patient should allow tablet to dissolve on tongue. Do not remove from blister pack until just before administering.
Or ondansetron (Zofran) injection 4 mgJump to med 4 mg, intravenous, Every 6 hours PRN, nausea/vomiting, second line, nausea, vomiting,, Starting on [place] 11/10/23 at 2315
Give IV if patient is unable to take orally. When administering via IV Push, administer over 3-5 minutes.
Scheduled Medication Order 12/06/2023 12/07/2023 12/08/2023 acetaminophen (Tylenol) tablet 975 mg 975 mg, oral, 3 times daily, First dose on Tue12/05/23 at 1545, If ordered PRN for pain, nurse is permitted to administer this medication for higher pain scores based on patient preference? Yes 1029 (Given - Provider: Chanda Nunn RN - Comment: npo)1456 (Given - Provider: Selena Voss)2135 (Given - Provider: Penny Bae RN) 0841 (Given - Provider: Caroline Jacobo RN)1502 (Given - Provider: Caroline Jacobo RN)193 (Given - Provider: Kenneth Paredes, KAY) 0829 (Given - Provider: Carol Méndez, KAY)1445 (Given - Provider: Carol Méndez RN)2100 (Due) ARIPiprazole (Abilify) tablet 10 mg 10 mg, oral, Daily, First dose on Tue12/05/23 at 1430 1026 (Given - Provider: Chanda Nunn RN - Comment: Jovany Guardado MD d/t NPO) 0843 (Given - Provider: Caroline Jacobo RN) 0829 (Given - Provider: Carol Méndez, KAY) ascorbic acid (Vitamin C) tablet 1,000 mg 1,000 mg, oral, Nightly, First dose on Tue12/05/23 at 2100 2136 (Not Given - Provider: Penny Bae RN - Reason: Patient/family refused) 2100 (Not Given - Provider: Kenneth Paredes, KAY - Reason: Patient/family refused) 2100 (Due) benztropine (Cogentin) tablet 0.5 mg 0.5 mg, oral, 2 times daily, First dose on Tue12/05/23 at 1430 1028 (Given - Provider: Chanda Nunn RN - Comment: NPO)213 (Given - Provider: Penny Bae RN) 0841 (Given - Provider: Caroline Jacobo RN)213 (Given - Provider: Kenneth Paredes RN) 08 (Given - Provider: Carol Méndez, RN)2099 (Due) divalproex (Depakote) EC tablet 250 mg 250 mg, oral, 2 times daily, First dose on Tue12/05/23 at 1430, Do not crush, chew, or split. 1027 (Given - Provider: Chanda Nunn RN - Comment: npo)2135 (Given - Provider: Penny Bae RN) 0844 (Given - Provider: Caroline Jacobo RN)2136 (Given - Provider: Kenneth Paredes, KAY) 08 (Given - Provider: Carol Méndez, KAY)2099 (Due) enoxaparin (Lovenox) syringe 100 mg 100 mg (rounded from 104 mg = 1 mg/kg 104 kg), subcutaneous, User specified (2 times per day), First dose (after last modification) on Tue12/07/23 at 2230 2209 (Given - Provider: Kenneth Paredes RN) 08 (Given - Provider: Carol Méndez, KAY)1999 (Due) famotidine (Pepcid) tablet 20 mg (COMPLETED) 20 mg, oral, Once, On Tue12/06/23 at 1600, For 1 dose 1649 (Given - Provider: Selena Voss) fenofibrate (Triglide) tablet 160 mg 160 mg, oral, Daily, First dose on Tue12/05/23 at 1430 1031 (Given - Provider: Chanda Nunn RN - Comment: npo) 0843 (Given - Provider: Caroline Jacobo RN) 0829 (Given - Provider: Carol Méndez, KAY) furosemide (Lasix) tablet 40 mg 40 mg, oral, Daily, First dose on Tue12/05/23 at 1430 1030 (Given - Provider: Chanda Nunn RN - Comment: npo) 0841 (Given - Provider: Caroline Jacobo RN) 0829 (Given - Provider: Carol Méndez, KAY) glipiZIDE XL (Glucotrol XL) 24 hr tablet 10 mg 10 mg, oral, Daily, First dose on Tue12/05/23 at 1430, Do not crush, chew, or split. 0900 (Dose Auto Held - Provider: Andreea Gandhi MD) 0900 (Not Given - Provider: Caroline Jacobo RN - Reason: See Provider Order) 0900 (Not Given - Provider: Carol Méndez RN - Reason: See Provider Order) insulin lispro protamin-lispro (HumaLOG Mix 75-25) 100 unit/mL (75-25) injection 10 Units 10 Units, subcutaneous, 3 times daily before meals, First dose on Tue12/05/23 at 1600 0800 (Not Given - Provider: Chanda Nunn RN - Reason: NPO)1100 (Not Given - Provider: Chanda Nunn RN - Reason: NPO - Comment: pt refused - NPO - MD notified)1556 (Given - Provider: Chanda Nunn RN) 0700 (Not Given - Provider: Caroline Jacobo RN - Reason: NPO)1219 (Given - Provider: Caroline Jacobo RN)1631 (Given - Provider: Caroline Jacobo RN) 0833 (Given - Provider: Carol Méndez RN)1226 (Given - Provider: Carol Méndez RN)1600 (Due) iohexol (OMNIPaque) 350 mg iodine/mL solution 80 mL (COMPLETED) 80 mL, intravenous, Once in imaging, Starting on Tue12/06/23 at 0839, For 1 dose 0841 (Given - Provider: Priyank Hankins) lidocaine (Xylocaine) 10 mg/mL (1 %) injection 1 mg 1 mg (0.1 mL), subcutaneous, Once, On Tue12/07/23 at 1100, For 1 dose, Recovery (only), To be used for IV insertion ONLY 1100 (Not Given - Provider: Caroline Jacobo RN - Reason: Post-procedure - Comment: PACU order that was not signed off) metoprolol succinate XL (Toprol-XL) 24 hr tablet 25 mg 25 mg, oral, Daily, First dose on Tue12/07/23 at 0900, Do not crush or chew. 0841 (Given - Provider: Caroline Jacobo RN) 0829 (Given - Provider: Carol Méndez RN) nystatin (Mycostatin) 100,000 unit/gram powder Topical, Every 8 hours, First dose on Tue12/05/23 at 1430, Apply to affected area 0616 (Given - Provider: Kenneth Paredes RN)1502 (Given - Provider: Selena Voss)2135 (Given - Provider: Penny Bae RN) 0608 (Given - Provider: Penny Bae RN)1430 (Not Given - Provider: Caroline Jacobo RN - Reason: Patient/family refused)2137 (Given - Provider: Kenneth Paredes RN) 0623 (Given - Provider: Kenneth Paredes RN)1430 (Given - Provider: Carol Méndez RN)2230 (Due) pancrelipase (Rmo-Bzde-Okjq) (Creon) 12,000-38,000 -60,000 unit per capsule 2 capsule 2 capsule, oral, 3 times daily with meals, First dose on 12/05/23 at 1700, Administer whole with food and sufficient fluid; do not crush or chew. Contents may be sprinkled on soft acidic food (such as applesauce or bananas) if swallowed immediately without chewing. If ordered per G-tube, thoroughly mix capsule contents into acidic food (applesauce or bananas). Stir gently; do not crush spheres. Within 15 minutes of mixing, give via a 35 mL slip-tip syringe into a 16F or larger diameter tube, then flush with ~10 mL of water. 0800 (Not Given - Provider: Chanda Nunn RN - Reason: NPO)1200 (Not Given - Provider: Chanda Nunn RN - Reason: NPO)1556 (Given - Provider: Chanda Nunn RN - Comment: NPO) 0800 (Not Given - Provider: Caroline Jacobo RN - Reason: NPO)1209 (Given - Provider: Caroline Jacobo RN)1622 (Given - Provider: Caroline Jacobo RN) 0800 (Not Given - Provider: Carol Méndez RN - Reason: Patient/family refused)1200 (Not Given - Provider: Carol Méndez RN - Reason: Patient/family refused)1700 (Due) pantoprazole (ProtoNix) EC tablet 40 mg 40 mg, oral, Once, On [place] 12/08/23 at 1515, For 1 dose, Do not crush, chew, or split. 1515 (Due) polyethylene glycol (Glycolax, Miralax) packet 17 g 17 g, oral, Daily, First dose on Tue12/05/23 at 1430, Bowel Regimen - for prevention of constipation. 1025 (Given - Provider: Chanda Nunn RN - Comment: await order d/t NPO) 0900 (Not Given - Provider: Caroline Jacobo RN - Reason: Other) 0829 (Given - Provider: Carol Méndez RN) potassium chloride 20 mEq in 100 mL IV premix (COMPLETED) 20 mEq, intravenous, at 50 mL/hr, Administer over 2 Hours, Every 2 hours, First dose on Tue12/07/23 at 0815, For 2 doses, Total dose is 40 mEq via peripheral line. 1127 (New Bag - Provider: Caroline Jacobo RN)1327 (Stopped - Provider: Caroline Jacobo RN)1347 (New Bag - Provider: Caroline Jacobo RN)1547 (Stopped - Provider: Caroline Jacobo RN) potassium chloride CR (Klor-Con M20) ER tablet 20 mEq 20 mEq, oral, Daily, First dose on Tue12/06/23 at 1730, Best given with food and a glass of water to minimize gastric irritation. Do not crush or chew. 1710 (Given - Provider: Selena Voss) 0841 (Given - Provider: Caroline Jacobo RN) 0829 (Given - Provider: Carol Méndez, KAY) sennosides (Senokot) tablet 17.2 mg (COMPLETED) 17.2 mg (2 tablet), oral, Once, On Tue12/08/23 at 0800, For 1 dose 0829 (Given - Provider: Carol Méndez, KAY) valACYclovir (Valtrex) tablet 500 mg 500 mg, oral, Daily, First dose on Tue12/05/23 at 1430, Coverage: Virus NOS, Coverage: Historical med, Infection Site: Other, Specify: historical med 1028 (Given - Provider: Chanda Nunn RN - Comment: npo) 0842 (Given - Provider: Caroline Jacobo RN) 0829 (Given - Provider: Carol Méndez, KAY) venlafaxine XR (Effexor-XR) 24 hr capsule 150 mg 150 mg, oral, Daily, First dose on Tue12/05/23 at 1430, Capsule may be swallowed whole, or may be opened and its contents sprinkled on applesauce if consumed immediately without chewing. Do not crush or chew. 1026 (Given - Provider: Chanda Nunn RN - Comment: npo) 0841 (Given - Provider: Caroline Jacobo, RN) 0828 (Given - Provider: Carol Méndez, RN) venlafaxine XR (Effexor-XR) 24 hr capsule 75 mg 75 mg, oral, Daily, First dose on Tue12/05/23 at 2100, Capsule may be swallowed whole, or may be opened and its contents sprinkled on applesauce if consumed immediately without chewing. Do not crush or chew. 1029 (Given - Provider: Chanda Nunn RN - Comment: npo) 0843 (Given - Provider: Caroline Jacobo, KYA) 0830 (Given - Provider: Carol Méndez, KAY) Continuous Medication Order 12/06/2023 12/07/2023 12/08/2023 heparin 25,000 Units in dextrose 5% 250 mL (100 Units/mL) infusion (premix) () 0-4,000 Units/hr (0-40 mL/hr), intravenous, Continuous, Starting on Tue12/05/23 at 1430, Until Tue12/06/23 at 0400, Low Intensity Heparin Protocol (70-124kg) Initial Dose: 12 units/kg/hr --> Use heparin calculator for units/hr rate Maximum Initial Dose: 1000 units/hr Recheck Heparin Assay, UFH level 4 hours after any rate change, or per protocol. Titration Table: Heparin Assay, UFH < 0.1: Bolus 4,000 units, INCREASE rate by 300 units/hr. , Heparin Assay, UFH 0.1 to 0.2: Bolus 2,000 units. INCREASE rate by 200 units/hr. Heparin Assay, UFH 0.3 to 0.6: (THERAPEUTIC) DO NOT CHANGE Infusion Rate. No Bolus. Heparin Assay, UFH 0.7 to 1: No Bolus. DECREASE rate by 200 unit/hour. Heparin Assay, UFH 1.1 to 1.2: No Bolus. HOLD heparin infusion for 1 hour, then DECREASE rate by 200 units/hour. Heparin Assay, UFH > 1.2: No Bolus. HOLD heparin infusion for 1 hour, then recheck heparin assay. If repeat is > 0.6, continue to HOLD INFUSION. Confirm last draw was performed correctly (pump was paused for a minimum of 2 minutes, sample NOT drawn off line/lumen where medication was infusing) and contact provider for further orders. If repeat is <= 0.6, REDUCE previous infusion rate by 300 units/hour and restart infusion. Recheck Heparin Assay, UFH in 4 hours after dose reduction, resume nomogram. 0243 (Rate/Dose Change - Provider: Kenneth Paredes RN)0400 (Stopped - Provider: Kenneth Paredes RN) heparin 25,000 Units in dextrose 5% 250 mL (100 Units/mL) infusion (premix) (CANCELED) 0-4,000 Units/hr (0-40 mL/hr), intravenous, Continuous, Starting on Tue12/07/23 at 0400, Until Tue12/07/23 at 0400, Low Intensity Heparin Protocol (70-124kg) Initial Dose: 12 units/kg/hr --> Use heparin calculator for units/hr rate Maximum Initial Dose: 1000 units/hr Recheck Heparin Assay, UFH level 4 hours after any rate change, or per protocol. Titration Table: Heparin Assay, UFH < 0.1: Bolus 4,000 units, INCREASE rate by 300 units/hr. , Heparin Assay, UFH 0.1 to 0.2: Bolus 2,000 units. INCREASE rate by 200 units/hr. Heparin Assay, UFH 0.3 to 0.6: (THERAPEUTIC) DO NOT CHANGE Infusion Rate. No Bolus. Heparin Assay, UFH 0.7 to 1: No Bolus. DECREASE rate by 200 unit/hour. Heparin Assay, UFH 1.1 to 1.2: No Bolus. HOLD heparin infusion for 1 hour, then DECREASE rate by 200 units/hour. Heparin Assay, UFH > 1.2: No Bolus. HOLD heparin infusion for 1 hour, then recheck heparin assay. If repeat is > 0.6, continue to HOLD INFUSION. Confirm last draw was performed correctly (pump was paused for a minimum of 2 minutes, sample NOT drawn off line/lumen where medication was infusing) and contact provider for further orders. If repeat is <= 0.6, REDUCE previous infusion rate by 300 units/hour and restart infusion. Recheck Heparin Assay, UFH in 4 hours after dose reduction, resume nomogram. 1909 (New Bag - Provider: Chanda Nunn RN) 0052 (Rate/Dose Change - Provider: Pneny Bae, KAY)0420 (Stopped - Provider: Penny Bae RN) PRN Medication Order 12/06/2023 12/07/2023 12/08/2023 albuterol 2.5 mg /3 mL (0.083 %) nebulizer solution 2.5 mg 2.5 mg, nebulization, Once as needed, wheezing, Starting on Tue12/07/23 at 1035, For 1 dose, Recovery (only) alteplase (Cathflo Activase) injection 1 mg 1 mg, intra-catheter, As needed, line care, Starting on Tue12/05/23 at 1500, For occluded catheter ports. Instill 2 mg into each port, and retain for 0.5 - 2 hours. May repeat if catheter remains occluded. Dilute each 2 mg vial with 2.2 mL sterile water to give 1 mg/mL final concentration. Swirl gently to mix; do not shake. alteplase (Cathflo Activase) injection 1 mg 1 mg, intra-catheter, As needed, line care, Starting on Tue12/05/23 at 2059, For occluded catheter ports. Instill 2 mg into each port, and retain for 0.5 - 2 hours. May repeat if catheter remains occluded. Dilute each 2 mg vial with 2.2 mL sterile water to give 1 mg/mL final concentration. Swirl gently to mix; do not shake. alteplase (Cathflo Activase) injection 2 mg 2 mg, intra-catheter, As needed, line care, Starting on Tue12/06/23 at 0900, Via Central Line Removed by: Aspiration Inject into partial/totally occluded catheter lumen for total of 30 to 120 minute dwell time; assess patency at 30 minutes and if not patent, dwell for additional 90 minutes. If still not patent, repeat alteplase 2 mg injected into thrombotic partial or totally occluded lumen for a total of 120 minute dwell time; assess patency at 30 minutes and if not patent, dwell for 90 minutes. If still not patent, notify provider. Dilute each 2 mg vial with 2.2 mL sterile water to give 1 mg/mL final concentration. Swirl gently to mix; do not shake. calcium carbonate (Tums) chewable tablet 500 mg 500 mg, oral, Daily PRN, indigestion, heartburn, Starting on [place] 12/08/23 at 0040 0046 (Given - Provider: Kenneth Paredes RN)1213 (Given - Provider: Carol Méndez RN) heparin (porcine) injection 2,000-4,000 Units (CANCELED) 2,000-4,000 Units, intravenous, Every 4 hours PRN, per current Heparin Assay, UFH result, Starting on Tue12/05/23 at 1410, Heparin Assay, UFH <0.1: Enter a 0 into the Heparin Assay, UFH field, Heparin Assay, UFH <0.1 Bolus Dose (units): 4000, Heparin Assay, UFH 0.1-0.2 Bolus Dose (units): 2000, Heparin Assay, UFH 0.3-0.6 Bolus Dose (units): 0, Heparin Assay, UFH 0.7-1 Bolus Dose (units): 0, Heparin Assay, UFH 1.1-1.2 Bolus Dose (units): 0, Heparin Assay, UFH >1.2 Bolus Dose (units): 0, Heparin Assay, UFH >2: Enter a 2 into the Heparin Assay, UFH field 0045 (Given - Provider: Penny Bae RN) heparin lock flush (porcine) injection 500 Units 500 Units (5 mL), intravenous, As needed, line care, Starting on Tue12/05/23 at 1410 1546 (Given - Provider: Carol Méndez RN) hydrALAZINE (Apresoline) injection 5 mg 5 mg, intravenous, Administer over 2 Minutes, Every 30 min PRN, high blood pressure, systolic blood pressure greater than 180 mmHg and heart rate less than 60 BPM, Starting on Tue12/07/23 at 1035, For 2 doses, Recovery (only) HYDROmorphone (Dilaudid) injection 0.8 mg (CANCELED) 0.8 mg, intravenous, Every 4 hours PRN, pain severe (7-10), first line, Starting on Tue12/05/23 at 1931 0153 (Given - Provider: Kenneth Paredes RN)0616 (Given - Provider: Kenneth Paredes RN)1053 (Given - Provider: Selena Voss)1457 (Given - Provider: Selena Voss) HYDROmorphone (Dilaudid) injection 1 mg (CANCELED) 1 mg, intravenous, Every 4 hours PRN, pain severe (7-10), first line, Starting on Tue12/06/23 at 1528 1837 (Given - Provider: Selena Voss)2144 (Given - Provider: Penny Bae RN) 0124 (Given - Provider: Penny Bae RN)0550 (Given - Provider: Penny Bae RN)1126 (Given - Provider: Caroline Jacobo RN)1622 (Given - Provider: Caroline Jacobo RN)2137 (Given - Provider: Kenneth Paredes RN) HYDROmorphone (Dilaudid) injection 1 mg 1 mg, intravenous, Every 4 hours PRN, pain severe (7-10), first line, Starting on Tue12/07/23 at 2223 0210 (Given - Provider: Kenneth Paredes RN)0623 (Given - Provider: Kenneth Paredes RN)1023 (Given - Provider: Carol Méndez RN)1445 (Given - Provider: Carol Méndez, RN) ketamine (bulk) 100 % powder 1 puff 1 puff, inhalation, 4 times daily PRN, as needed, Starting on Tue12/05/23 at 1410 melatonin tablet 3 mg 3 mg, oral, Nightly PRN, sleep, Starting on Tue12/05/23 at 1410 2144 (Given - Provider: Penny Bae, RN) 2137 (Given - Provider: Kenneth Paredes, KAY) ondansetron (Zofran) injection 4 mg (COMPLETED) 4 mg, intravenous, Once as needed, nausea/vomiting, first line, Starting on Tue12/07/23 at 1035, For 1 dose, Recovery (only), When administering via IV Push, administer over 3-5 minutes. 1445 (Given - Provider: Carol Méndez, KAY) ondansetron (Zofran) tablet 4 mg 4 mg, oral, Every 8 hours PRN, nausea/vomiting, first line, Starting on Tue12/07/23 at 0755 1126 (Given - Provider: Caroline Jacobo RN) oxyCODONE (Roxicodone) immediate release tablet 5 mg (CANCELED) 5 mg, oral, Every 4 hours PRN, pain moderate (4-6), second line, Starting on Tue12/07/23 at 1035, Recovery (only), When able to take oral medications., If ordered PRN for pain, nurse is permitted to administer this medication for higher pain scores based on patient preference? Yes 1502 (Given - Provider: Caroline Jacobo RN)1931 (Given - Provider: Kenneth Paredes, KAY) promethazine (Phenergan) tablet 25 mg 25 mg, oral, Every 6 hours PRN, nausea/vomiting, first line, Starting on Tue12/05/23 at 1410 0616 (Given - Provider: Kenneth Paredes, KAY)1649 (Given - Provider: Selena Voss) 0550 (Given - Provider: Penny Bae, KAY)1622 (Given - Provider: Caroline Jacobo, KAY)2143 (Given - Provider: Kenneth Paredes, KAY) 1213 (Given - Provider: Carol Méndez, KAY) Scheduled Medication Order 02/29/2024 03/01/2024 03/02/2024 ARIPiprazole (Abilify) tablet 10 mg 10 mg, oral, Daily, First dose on Tue02/28/24 at 0900 0842 (Given - Provider: Angela Romeo RN) 0818 (Given - Provider: Angela Romeo RN) 0840 (Given - Provider: Yaa More, KAY) ascorbic acid (Vitamin C) tablet 1,000 mg 1,000 mg, oral, Nightly, First dose on Tue02/28/24 at 2100 2044 (Given - Provider: Yaa Sow RN) 2031 (Not Given - Provider: Belle Arechiga, RN - Reason: Patient/family refused) 2099 (Due) benztropine (Cogentin) tablet 0.5 mg 0.5 mg, oral, 2 times daily, First dose (after last modification) on Tue02/29/24 at 1000 1000 (Not Given - Provider: Angela Romeo RN - Reason: Other - Comment: med given at 928)230 (Given - Provider: Yaa Sow RN) 08 (Given - Provider: Angela Romeo RN)2032 (Given - Provider: Belle Arechiga, KAY) 0836 (Given - Provider: Yaa More, RN)2099 (Due) calcium carbonate (Tums) chewable tablet 500 mg 500 mg, oral, Daily, First dose on Tue03/01/24 at 0900 2300 (Not Given - Provider: Yaa Sow RN - Reason: Contraindicated - Comment: wrong time and date) 0839 (Given - Provider: Yaa More, KAY) clonazePAM (KlonoPIN) tablet 0.5 mg 0.5 mg, oral, Nightly, First dose (after last modification) on Tue02/29/24 at 2100 2043 (Given - Provider: Yaa Sow RN) 2031 (Given - Provider: Belle Arechiga, KAY) 2099 (Due) cloNIDine (Catapres) tablet 0.2 mg 0.2 mg, oral, Daily, First dose on Tue02/28/24 at 0900 0842 (Given - Provider: Angela Romeo RN) 0819 (Given - Provider: Angela Romeo RN) 0900 (Not Given - Provider: Yaa More RN - Reason: Other - Comment: Held per provider order due to BP) divalproex (Depakote) delayed release tablet 250 mg 250 mg, oral, 2 times daily, First dose on Tue02/28/24 at 0900, Do not crush, chew, or split. 0842 (Given - Provider: Angela Romeo RN)2307 (Given - Provider: Yaa Sow RN) 0818 (Given - Provider: Angela Romeo RN)2032 (Given - Provider: Belle Arechiga, RN) 0836 (Given - Provider: Yaa More, RN)2100 (Due) doxepin (SINEquan) capsule 10 mg 10 mg, oral, Nightly, First dose on Tue02/28/24 at 2100 2308 (Given - Provider: Yaa Sow RN) 2032 (Given - Provider: Belle Arechiga, RN) 2099 (Due) furosemide (Lasix) tablet 40 mg 40 mg, oral, Daily, First dose on Tue02/28/24 at 0900 0842 (Given - Provider: Angela Romeo RN) 0819 (Given - Provider: Angela Romeo RN) 0900 (Not Given - Provider: Yaa More RN - Reason: Other - Comment: Held per provider order due to BP) heparin flush 100 unit/mL syringe 500 Units 500 Units (5 mL), intra-catheter, Once, On Tue03/02/24 at 1730, For 1 dose 1730 (Due) insulin lispro (HumaLOG) injection 0-5 Units 0-5 Units, subcutaneous, 3 times daily (morning, midday, late afternoon), First dose on Tue02/28/24 at 0800, Do not hold when patient is not eating, continue order as scheduled for hyperglycemia management. Insulin Lispro Corrective Scale #1 Hypoglycemia protocol Call LIP unit(s) if Blood Glucose is between 0 - 70 mg/dL 0 unit(s) if Blood glucose is between 71-150 1 unit(s) if Blood glucose is between 151-200 2 unit(s) if Blood glucose is between 201-250 3 unit(s) if Blood glucose is between 251-300 4 unit(s) if Blood glucose is between 301-350 5 unit(s) if Blood glucose is between 351-400 Notify provider unit(s) if Blood Glucose is greater than 400 mg/dL 0842 (Given - Provider: Angela Romeo RN - Comment: BG 152)1200 (Given - Provider: Angela Romeo RN - Comment: BG 155)1700 (Not Given - Provider: Angela Romeo RN - Reason: Order parameters not met - Comment: BG 149) 0800 (Not Given - Provider: Angela Romeo RN - Reason: Order parameters not met - Comment: BG 134)1221 (Given - Provider: Angela Romeo RN)1714 (Given - Provider: Angela Romeo RN - Comment: BG 179) 0853 (Given - Provider: Yaa More RN)1229 (Given - Provider: Yaa More RN)1700 (Due) linaCLOtide (Linzess) capsule 290 mcg 290 mcg, oral, Daily before breakfast, First dose on Tue02/28/24 at 0700, Do not break or crush capsule. If difficulty swallowing, may sprinkle capsule contents in 30 mL water or 5 mL applesauce if swallowed without chewing. Use immediately after mixing., On hold since Tue02/28/2024 at 1521 until manually unheld 0700 (Not Given - Provider: Angela Romeo RN - Reason: See Provider Order) 0700 (Not Given - Provider: Yaa Sow RN - Reason: Contraindicated) 0700 (Canceled Entry - Provider: Belle Arechiga RN - Comment: held by provider) melatonin tablet 5 mg 5 mg, oral, Nightly, First dose on Tue02/28/24 at 2115 2307 (Given - Provider: Yaa Sow RN) 2032 (Given - Provider: Belle Arechiga, KYA) 2100 (Due) methylnaltrexone (Relistor) injection 12 mg (COMPLETED) 12 mg, subcutaneous, Once, On Tue02/29/24 at 1545, For 1 dose 1712 (Given - Provider: Angela Romeo RN) methylnaltrexone (Relistor) injection 12 mg (COMPLETED) 12 mg, subcutaneous, Once, On Tue03/01/24 at 0945, For 1 dose 1050 (Given - Provider: Angela Romeo RN) metoprolol succinate XL (Toprol-XL) 24 hr tablet 25 mg 25 mg, oral, Daily, First dose on Tue02/28/24 at 0900, Do not crush or chew. 0842 (Given - Provider: Angela Romeo RN) 0819 (Given - Provider: Angela Romeo RN) 0900 (Not Given - Provider: Yaa More RN - Reason: Other - Comment: Held per provider order due to BP) pancrelipase (Bge-Ldck-Hzqk) (Creon) 12,000-38,000 -60,000 unit per capsule 2 capsule 2 capsule, oral, 3 times daily (morning, midday, late afternoon), First dose on Tue02/28/24 at 0800, Administer whole with food and sufficient fluid; do not crush or chew. Contents may be sprinkled on soft acidic food (such as applesauce or bananas) if swallowed immediately without chewing. If ordered per G-tube, thoroughly mix capsule contents into acidic food (applesauce or bananas). Stir gently; do not crush spheres. Within 15 minutes of mixing, give via a 35 mL slip-tip syringe into a 16F or larger diameter tube, then flush with ~10 mL of water., On hold since Tue02/28/2024 at 1614 until manually unheld 0800 (Not Given - Provider: Angela Romeo RN - Reason: See Provider Order)1200 (Not Given - Provider: Angela Romeo RN - Reason: See Provider Order)1700 (Not Given - Provider: Angela Romeo RN - Reason: See Provider Order) 0800 (Not Given - Provider: Angela Romeo RN - Reason: See Provider Order)1200 (Not Given - Provider: Angela Romeo RN - Reason: See Provider Order)1700 (Not Given - Provider: Angela Romeo RN - Reason: See Provider Order) 0700 (Canceled Entry - Provider: Belle Arechiga, RN - Comment: held by provider)1200 (Not Given - Provider: Dorothea Squires RN - Reason: See Provider Order)1700 (Dose Auto Held - Provider: Martha More APRN-INVESTOR RELATIONS DIRECTOR) pantoprazole (ProtoNix) EC tablet 40 mg 40 mg, oral, Daily before breakfast, First dose on Tue03/01/24 at 0700, Do not crush, chew, or split. 0800 (Not Given - Provider: Angela Romeo RN - Reason: Patient/family refused) 0700 (Given - Provider: Belle Arechiga, RN) pantoprazole (ProtoNix) injection 40 mg (CANCELED) 40 mg, intravenous, Daily, First dose on Tue02/28/24 at 0900, Reconstitute with 10 mL sodium chloride 0.9% for injection. Push over 2 minutes. Reconstitute with 10 mL sodium chloride 0.9% for injection. Push over 2 minutes. 0842 (Given - Provider: Angela Romeo RN) polyethylene glycol (Glycolax, Miralax) packet 17 g 17 g, oral, Daily, First dose on Tue02/28/24 at 0900, Bowel Regimen - for prevention of constipation. 0841 (Given - Provider: Angela Romeo RN) 0819 (Given - Provider: Angela Romeo RN) 0839 (Given - Provider: Yaa More RN) potassium chloride CR (Klor-Con) ER tablet 20 mEq 20 mEq, oral, Daily, First dose on Tue02/28/24 at 0900, Capsule may be swallowed whole, or may be opened and its contents sprinkled on applesauce if consumed immediately without chewing. Do not crush, chew, or split. 0842 (Given - Provider: Angela Romeo RN) 0819 (Given - Provider: Angela Romeo RN) 0840 (Given - Provider: Yaa More, KAY) rOPINIRole (Requip) tablet 0.5 mg 0.5 mg, oral, 2 times daily, First dose on Tue02/28/24 at 0900 0842 (Given - Provider: Angela Romeo RN)2307 (Given - Provider: Yaa Sow RN) 0819 (Given - Provider: Angela Romeo RN)2034 (Given - Provider: Belle Arechiga, RN) 0836 (Given - Provider: Yaa More, KAY)2100 (Due) valACYclovir (Valtrex) tablet 500 mg 500 mg, oral, Daily, First dose on Tue02/28/24 at 0900, Coverage: Herpes simplex, Infection Site: Prophylaxis 0842 (Given - Provider: Angela Romeo RN) 0819 (Given - Provider: Angela Romeo RN) 0900 (Not Given - Provider: Dorothea Squires RN - Reason: Medication not available) venlafaxine XR (Effexor-XR) 24 hr capsule 150 mg 150 mg, oral, Daily, First dose on Tue02/28/24 at 0900, Capsule may be swallowed whole, or may be opened and its contents sprinkled on applesauce if consumed immediately without chewing. Do not crush or chew. 0842 (Given - Provider: Angela Romeo RN) 0819 (Given - Provider: Angela Romeo RN) 0843 (Given - Provider: Yaa More RN) venlafaxine XR (Effexor-XR) 24 hr capsule 75 mg 75 mg, oral, Daily, First dose on Tue02/28/24 at 0900, Capsule may be swallowed whole, or may be opened and its contents sprinkled on applesauce if consumed immediately without chewing. Do not crush or chew. 0841 (Given - Provider: Angela Romeo RN) 0820 (Given - Provider: Angela Romeo RN) 0848 (Given - Provider: Yaa More RN) warfarin (Coumadin) tablet 5 mg 5 mg, oral, Daily, First dose on Tue02/29/24 at 1800, For 3 days, Re-evaluate and re-order based on lab results. Enteral feedings are held 1 hour pre and post dose., On hold since Tue03/02/2024 at 1040 until manually unheld 1712 (Given - Provider: Angela Romeo RN) 1714 (Given - Provider: Angela Romeo RN) 1040 (Held by provider - Provider: Camilo Prasad RPh - Reason: Other - Comment: Supra-therapeutic INR today - 3.2)1800 (Dose Auto Held - Provider: Camilo Prasad RPh) Continuous Medication Order 02/29/2024 03/01/2024 03/02/2024 heparin 25,000 Units in dextrose 5% 250 mL (100 Units/mL) infusion (premix) (CANCELED) 0-4,500 Units/hr (0-45 mL/hr), intravenous, Continuous, Starting on Tue02/28/24 at 0250, Until Tue03/02/24 at 1619, High Intensity Heparin Protocol (70-124kg) Initial Dose: 18 units/kg/hr --> Use heparin calculator for units/hr rate Maximum Initial Dose: 2000 units/hr Recheck Heparin Assay, UFH level 4 hours after any rate change, or per protocol. Titration Table: Heparin Assay, UFH < 0.1: INCREASE rate by 300 units/hr. Heparin Assay, UFH 0.1 to 0.2: INCREASE rate by 200 units/hr. Heparin Assay, UFH 0.3 to 0.7: (THERAPEUTIC) DO NOT CHANGE Infusion Rate. Heparin Assay, UFH 0.8 to 1: DECREASE rate by 200 unit/hour. Heparin Assay, UFH 1.1 to 1.2: HOLD heparin infusion for 1 hour, then DECREASE rate by 200 units/hour. Heparin Assay, UFH > 1.2: HOLD heparin infusion for 1 hour, then recheck heparin assay. If repeat is > 0.7, continue to HOLD INFUSION. Confirm last draw was performed correctly (pump was paused for a minimum of 2 minutes, sample NOT drawn off line/lumen where medication was infusing) and contact provider for further orders. If repeat is <= 0.7, REDUCE previous infusion rate by 300 units/hour and restart infusion. Recheck Heparin Assay, UFH in 4 hours after dose reduction, resume nomogram 0646 (Rate/Dose Change - Provider: Dianne Rodriguez RN)0900 (Rate/Dose Verify - Provider: Angela Romeo RN)1122 (Rate/Dose Change - Provider: Angela Romeo RN)1137 (Rate/Dose Verify - Provider: Angela Romeo RN)1338 (Rate/Dose Verify - Provider: Angela Romeo RN)1607 (Rate/Dose Change - Provider: Angela Romeo RN)1801 (Canceled Entry - Provider: Angela Romeo RN - Comment: Cancelled from back documented administration.)1837 (Rate/Dose Verify - Provider: Angela Romeo RN)203 (New Bag - Provider: Yaa Sow RN) 0100 (Rate/Dose Verify - Provider: Yaa Sow RN)0611 (Rate/Dose Verify - Provider: Yaa Sow RN)0824 (Rate/Dose Verify - Provider: Angela Romeo RN)1030 (Rate/Dose Verify - Provider: Angela Romeo, RN)1244 (Rate/Dose Verify - Provider: Angela Romeo, RN)1442 (New Bag - Provider: Angela Romeo RN)1501 (Rate/Dose Verify - Provider: Angela Romeo RN)1719 (Rate/Dose Verify - Provider: Angela Romeo RN)2033 (Stopped - Provider: Belle Arechiga RN - Comment: on hold for 15 minutes to give phenergan for nausea, pt will not allow another PIV placed and this is not compatible)2049 (Restarted - Provider: Belle Arechiga RN)215 (Rate/Dose Verify - Provider: Belle Arechiga RN) 0127 (Rate/Dose Verify - Provider: Belle Arechiga RN)0437 (Rate/Dose Verify - Provider: Belle Arechiga RN)0441 (New Bag - Provider: Belle Arechiga RN)0619 (Rate/Dose Verify - Provider: Belle Arechiga RN - Comment: assay therapeutic at 0.4)0655 (Rate/Dose Verify - Provider: Belle Arechiga RN)1619 (Stopped - Provider: Dorothea Squires RN) sodium chloride 0.9% infusion 75 mL/hr, intravenous, Continuous, Starting on Tue02/28/24 at 0410 0149 (New Bag - Provider: Dianne Rodriguez RN)0900 (Rate/Dose Verify - Provider: Angela Romeo RN)1137 (Rate/Dose Verify - Provider: Angela Romeo, KAY)1338 (Rate/Dose Verify - Provider: Angela Romeo RN)1428 (New Bag - Provider: Angela Romeo RN)1801 (Rate/Dose Verify - Provider: Angela Romeo RN) 0228 (New Bag - Provider: Yaa Sow RN)0315 (Rate/Dose Verify - Provider: Yaa Sow RN)0615 (Rate/Dose Verify - Provider: Yaa Sow RN)0824 (Rate/Dose Verify - Provider: Angela Romeo RN)1030 (Rate/Dose Verify - Provider: Angela Romeo RN)1244 (Rate/Dose Verify - Provider: Angela Romeo RN)1444 (New Bag - Provider: Angela Romeo RN)1501 (Rate/Dose Verify - Provider: Angela Romeo RN)1719 (Rate/Dose Verify - Provider: Angela Romeo RN)2151 (Rate/Dose Verify - Provider: Belle Arechiga RN) 0127 (Rate/Dose Verify - Provider: Belle Arechiga RN)0413 (New Bag - Provider: Belle Arechiga RN)0437 (Rate/Dose Verify - Provider: Belle Arechiga RN)0655 (Rate/Dose Verify - Provider: Belle Arechiga RN) PRN Medication Order 02/29/2024 03/01/2024 03/02/2024 acetaminophen (Tylenol) oral liquid 650 mg(Linked Group 1) 650 mg, nasogastric tube, Every 4 hours PRN, fever (temp greater than 38.0 C), greater than or equal to 38 C, Starting on Tue02/28/24 at 0405 1119 (See Alternative - Provider: Angela Romeo RN)2044 (See Alternative - Provider: Yaa Sow RN) 1634 (See Alternative - Provider: Angela Romeo RN) acetaminophen (Tylenol) oral liquid 650 mg(Linked Group 2) 650 mg, oral, Every 4 hours PRN, pain mild (1-3), first line, Starting on Tue02/28/24 at 0405, Give oral liquid per feeding tube if present. 1119 (See Alternative - Provider: Angela Romeo RN)1730 (See Alternative - Provider: Angela Romeo RN) 1636 (See Alternative - Provider: Angela Romeo RN) acetaminophen (Tylenol) suppository 650 mg(Linked Group 1) 650 mg, rectal, Every 4 hours PRN, fever (temp greater than 38.0 C), greater than or equal to 38 C, Starting on Tue02/28/24 at 0405, If ordered PRN for pain, nurse is permitted to administer this medication for higher pain scores based on patient preference? Yes 1119 (See Alternative - Provider: Angela Romeo RN)2043 (See Alternative - Provider: Yaa Sow RN) 163 (See Alternative - Provider: Angela Romeo RN) acetaminophen (Tylenol) suppository 650 mg(Linked Group 2) 650 mg, rectal, Every 4 hours PRN, pain mild (1-3), first line, Starting on Tue02/28/24 at 0405, Give rectally if unable to administer by mouth or feeding tube., If ordered PRN for pain, nurse is permitted to administer this medication for higher pain scores based on patient preference? Yes 1119 (See Alternative - Provider: Angela Romeo RN)173 (See Alternative - Provider: Angela Romeo RN) 163 (See Alternative - Provider: Angela Romeo RN) acetaminophen (Tylenol) tablet 650 mg(Linked Group 1) 650 mg, oral, Every 4 hours PRN, fever (temp greater than 38.0 C), greater than or equal to 38 C, Starting on Tue02/28/24 at 0405, If ordered PRN for pain, nurse is permitted to administer this medication for higher pain scores based on patient preference? Yes 1119 (Canceled Entry - Provider: Angela Romeo RN)2043 (Given - Provider: Yaa Sow RN) 163 (Canceled Entry - Provider: Angela Romeo RN) acetaminophen (Tylenol) tablet 650 mg(Linked Group 2) 650 mg, oral, Every 4 hours PRN, pain mild (1-3), first line, Starting on Tue02/28/24 at 0405, If ordered PRN for pain, nurse is permitted to administer this medication for higher pain scores based on patient preference? Yes 1119 (Given - Provider: Angela Romeo RN)173 (Given - Provider: Angela Romeo RN) 1636 (Given - Provider: Angela Romeo RN) alum-mag hydroxide-simeth (Mylanta) 200-200-20 mg/5 mL oral suspension 10 mL 10 mL, oral, 4 times daily PRN, indigestion, heartburn, Starting on Tue03/01/24 at 1805 1819 (Given - Provider: Angela Romeo RN) 0344 (Given - Provider: Belle Arechiga, RN)1231 (Given - Provider: Yaa More, KAY) benztropine (Cogentin) tablet 0.5 mg (CANCELED) 0.5 mg, oral, 2 times daily PRN, EPS, Starting on Tue02/28/24 at 0405 0929 (Given - Provider: Angela Romeo RN) calcium carbonate (Tums) chewable tablet 500 mg 500 mg, oral, 3 times daily PRN, indigestion, heartburn, Starting on Tue02/29/24 at 2315 2344 (Given - Provider: Yaa Sow RN) 0212 (Given - Provider: Yaa Sow RN)1047 (Given - Provider: Angela Romeo RN)1436 (Given - Provider: Angela Romeo RN - Comment: ok to give per Dr. Nolen for extra dose) dextrose 50 % injection 12.5 g 12.5 g, intravenous, Every 15 min PRN, For blood glucose 41 to 70 mg/dL, Starting on Tue02/28/24 at 0405, May repeat until blood glucose level reaches 100 mg/dL or greater. Push 2 - 3 mL/minute if patient has secure IV access. dextrose 50 % injection 25 g 25 g, intravenous, Every 15 min PRN, For blood glucose less than or equal to 40 mg/dL, Starting on Tue02/28/24 at 0405, May repeat until blood glucose level reaches 100 mg/dL or greater. Push 2 - 3 mL/minute if patient has secure IV access. diphenhydrAMINE (BENADryl) capsule 25 mg 25 mg, oral, Every 4 hours PRN, itching, Starting on Tue02/28/24 at 1612 0534 (Given - Provider: Dianne Rodriguez RN) glucagon (Glucagen) injection 1 mg 1 mg, intramuscular, Every 15 min PRN, low blood sugar - see comments, For blood glucose less than or equal to 40 mg/dL and no IV access, Starting on Tue02/28/24 at 0405, Give until blood glucose is 100 mg/dL or greater. If patient DOES NOT HAVE secure IV access & patient is unconscious, NPO or is unable to eat or drink. glucagon (Glucagen) injection 1 mg 1 mg, intramuscular, Every 15 min PRN, low blood sugar - see comments, For blood glucose less than or equal to 70 mg/dL and no IV access, Starting on Tue02/28/24 at 0405, Give until blood glucose is 100 mg/dL or greater. If patient DOES NOT HAVE secure IV access & patient is unconscious, NPO or is unable to eat or drink. HYDROmorphone (Dilaudid) injection 1 mg (CANCELED) 1 mg, intravenous, Every 3 hours PRN, pain severe (7-10), first line, Starting on Tue02/28/24 at 0932 0147 (Given - Provider: Dianne Rodriguez RN)0455 (Given - Provider: Dianne Rodriguez RN)0802 (Given - Provider: Angela Romeo RN)1119 (Given - Provider: Angela Romeo RN)1424 (Given - Provider: Angela Romeo, KAY)1726 (Given - Provider: Angela Romeo RN)2043 (Given - Provider: Yaa Sow RN)2343 (Given - Provider: Yaa Sow RN) 0248 (Given - Provider: Yaa Sow RN)0623 (Given - Provider: Yaa Sow RN)0924 (Given - Provider: Angela Romeo RN)1225 (Given - Provider: Angela Romeo RN) oxyCODONE (Roxicodone) immediate release tablet 5 mg 5 mg, oral, 3 times daily PRN, pain moderate (4-6), first line, Starting on Tue03/01/24 at 1533, If ordered PRN for pain, nurse is permitted to administer this medication for higher pain scores based on patient preference? Yes 1636 (Given - Provider: Angela Romeo RN) 0033 (Given - Provider: Belle Arechiga, KAY)1132 (Given - Provider: Dorothea Squires RN) promethazine (Phenergan) 12.5 mg in sodium chloride 0.9% 50 mL IV 12.5 mg, intravenous, Administer over 15 Minutes, Every 6 hours PRN, nausea/vomiting, first line, Starting on Tue02/28/24 at 0658 0456 (New Bag - Provider: Dianne Yoana, RN)0511 (Stopped - Provider: Dianne Rodriguez RN)1210 (New Bag - Provider: Angela Romeo RN)1225 (Stopped - Provider: Angela Romeo RN)1813 (New Bag - Provider: Angela Romeo RN)1828 (Stopped - Provider: Angela Romeo RN) 0212 (New Bag - Provider: Yaa Sow RN)0227 (Stopped - Provider: Yaa Sow RN)1147 (New Bag - Provider: Angela Romeo RN)1202 (Stopped - Provider: Angela Romeo RN)2034 (New Bag - Provider: Belle Arechiga, RN)2049 (Stopped - Provider: Belle Arechiga, RN) 1246 (New Bag - Provider: Dorothea Squires RN)1301 (Stopped - Provider: Dorothea Squires RN) Linked Groups Order Group 1: acetaminophen (Tylenol) tablet 650 mgJump to med 650 mg, oral, Every 4 hours PRN, fever (temp greater than 38.0 C), greater than or equal to 38 C, Starting on Tue02/28/24 at 0405, If ordered PRN for pain, nurse is permitted to administer this medication for higher pain scores based on patient preference? Yes Or acetaminophen (Tylenol) oral liquid 650 mgJump to med 650 mg, nasogastric tube, Every 4 hours PRN, fever (temp greater than 38.0 C), greater than or equal to 38 C, Starting on Tue02/28/24 at 0405 Or acetaminophen (Tylenol) suppository 650 mgJump to med 650 mg, rectal, Every 4 hours PRN, fever (temp greater than 38.0 C), greater than or equal to 38 C, Starting on Tue02/28/24 at 0405, If ordered PRN for pain, nurse is permitted to administer this medication for higher pain scores based on patient preference? Yes Group 2: acetaminophen (Tylenol) tablet 650 mgJump to med 650 mg, oral, Every 4 hours PRN, pain mild (1-3), first line, Starting on Tue02/28/24 at 0405, If ordered PRN for pain, nurse is permitted to administer this medication for higher pain scores based on patient preference? Yes Or acetaminophen (Tylenol) oral liquid 650 mgJump to med 650 mg, oral, Every 4 hours PRN, pain mild (1-3), first line, Starting on Tue02/28/24 at 0405, Give oral liquid per feeding tube if present. Or acetaminophen (Tylenol) suppository 650 mgJump to med 650 mg, rectal, Every 4 hours PRN, pain mild (1-3), first line, Starting on Tue02/28/24 at 0405, Give rectally if unable to administer by mouth or feeding tube., If ordered PRN for pain, nurse is permitted to administer this medication for higher pain scores based on patient preference? Yes Scheduled Medication Order 03/03/2024 03/04/2024 03/05/2024 acetaminophen (Tylenol) tablet 650 mg (COMPLETED) 650 mg, oral, Once, On Tue03/05/24 at 1815, For 1 dose, If ordered PRN for pain, nurse is permitted to administer this medication for higher pain scores based on patient preference? Yes 1817 (Given - Provid er: Delicia Crawford RN) heparin flush 100 unit/mL syringe 500 Units (COMPLETED) 500 Units (5 mL), intravenous, Once, On Tue03/05/24 at 1840, For 1 dose 1840 (Given - Provid er: Snow Christensen RN) metoclopramide (Reglan) tablet 10 mg (COMPLETED) 10 mg, oral, Once, On Tue03/05/24 at 1815, For 1 dose 1817 (Given - Provid er: Delicia Crawford RN) ondansetron ODT (Zofran-ODT) disintegrating tablet 4 mg (COMPLETED) 4 mg, oral, Once, On Tue03/05/24 at 1815, For 1 dose 181 (Given - Provid er: Delicia Crawford RN) FOR RECORDS PERTAINING TO PATIENTS WHO ARE OR HAVE BEEN ENROLLED IN A CHEMICAL DEPENDENCY/SUBSTANCEABUSE PROGRAM, SOME INFORMATION MAY BE OMITTED. This clinical summary was aggregated from multiple sources. Caution should be exercised in using it in the provision of clinical care. This summary normalizes information from multiple sources, and as a consequence, information in this document may materially change the coding, format and clinical context of patient data. In addition, data may be omitted in some cases. CLINICAL DECISIONS SHOULD BE BASED ON THE PRIMARY CLINICAL RECORDS. [facility] provides no warranty or guarantee of the accuracy or completeness of information in this document.
[2024-06-16] MEDS: Morphine 4 MG/ML Syringe IV (12:59)
[2024-06-16] MEDS: Ondansetron 4 MG/2 ML Vial IV ×2 (12:59→16:29)
[2024-06-16] MEDS: 0.9% Normal Saline (1000mL) 1,000 ML 999 ML IV (13:05)
[2024-06-16 13:09] LABS: Mucous, Urine 0 SEEN /hpf (<or=2+); Red Blood Cells-Urine 0 SEEN /hpf (0-5); Squamous Epithelial Cells - UA 0 SEEN /hpf (5-10)
[2024-06-16 13:14] LABS: Color, Urine Straw (Yellow); Glucose, Dipstick Normal (Normal); Ketone-Dipstick Negative (Negative); Leukocyte Esterase-Dipstick Negative /ul (Negative); Nitrite-Dipstick Negative (Negative); Occult Blood-Urine Negative /ul (Negative); Protein-Dipstick Negative (Negative); Urine Bilirubin Dipstick Negative (Negative); Urine Clarity Clear (Clear); Urine Urobilinogen Normal (Normal)
[2024-06-16 13:19] LABS: Bacteria RARE /hpf (None Seen); White Blood Cells 0-5 SEEN /hpf (0-5)
[2024-06-16 13:23] LABS: Absolute Neutrophil Count 4.9 X10^3/uL (2.0-7.7); Basophil# 0.08 X10^3/uL; Basophil% 1.1 % (0-1); Eosinophil# 0.11 X10^3/uL; Eosinophils% 1.5 % (0-5); Hematocrit 40.2 % (37-47); Hemoglobin 12.6 g/dL (12.0-15.0); Lymphocyte % 24.1 % (19-41); Mean Corp Hgb Conc 31.3 g/dL (32-36); Mean Corpuscular Hgb 26.9 pg (27.0-32.0); Mean Corpuscular Volume 85.7 fL (81-99); Mean Platelet Vol. 8.7 fl (6.2-12.0); Monocyte# 0.49 X10^3/uL; Monocyte% 6.6 % (0-10); NRBC Flagged by Analyzer 0 % (0-5); Neutrophil # 4.93 X10^3/uL (2.7-7.7); Neutrophil % 65.9 % (47-70); Platelet Count 313 K/mm3 (150-450); RBC Distribution Width CV 16.4 % (11.6-14.6); RBC Distribution Width SD 51.1 fl (35.1-43.9); Red Blood Count 4.69 M/mm3 (4.2-5.4); White Blood Count 7.5 K/mm3 (4.4-11.0)
[2024-06-16 13:30] VITALS: BP 123/74; PULSE 82; RESP 16; O2SAT 95
[2024-06-16 13:30] LABS: AST(SGOT) 31 U/L (15-37); Alanine Aminotransfer ALT/SGPT 72 U/L (13-56); Alkaline Phosphatase 135 U/L (45-117); Anion Gap 8 (5-15); BUN 24 mg/dL (7-18); BUN/Creat Ratio 23.5 RATIO (10-20); Calcium,Total 9.3 mg/dL (8.5-10.1); Chloride 105 mmol/L (98-107); Creatinine, Serum 1.02 mg/dL (0.55-1.02); EST Glomerular Filtration Rate 61 mL/min (>60); Est Glom Filt Rate - Afr Amer 74 mL/min (>60); Estimated Creatinine Clearance 74.83 ml/min; Glucose 172 mg/dL (74-106); Lipase 11 U/L (13-75); Potassium 3.7 mmol/L (3.5-5.1); Sodium Level 138 mmol/L (136-145); Troponin-I HS (w/2H Reflex) 5 pg/mL (3.0-54.0)
[2024-06-16 13:39] LABS: International Normalized Ratio 1.8; Prothrombin Time (Protime)PT. 20.9 SECONDS (11.7-14.9)
[2024-06-16 13:45] LABS: Lactic Acid 1.8 mmol/L (0.4-1.9)
[2024-06-16 13:56] LABS: Partial Thromboplast Time 25.4 Seconds (24.1-36.2)
[2024-06-16 15:00] VITALS: BP 117/70; PULSE 70; RESP 17; O2SAT 97
[2024-06-16 15:09] LABS: Reflex Troponin-HS? (from REC) Y
[2024-06-16 15:55] LABS: Troponin-I HS 5 pg/mL (3.0-54.0)
[2024-06-16] MEDS: Morphine 4 MG/ML Syringe 2 MG IV (16:30)
[2024-06-16] MEDS: Heparin Injection (Vial) 5,000 UNIT/ML VIAL 7500 UNIT IV (16:31)
[2024-06-16] MEDS: HEPARIN/D5w 25,000 UNITS 25,000 UNITS/250 ML IV.SOLN. 14 UNITS CONT INF (16:39)
[2024-06-16 17:00] VITALS: BP 120/77; PULSE 68; RESP 16; O2SAT 96
--- OUTSIDE RECORDS SUMMARY | 2024-06-16 18:51 | XMS RPT_ITS | CCD ---
Author Organization [facility] CliniSyin Care Team Providers Care Tobacco Stripper Name Role Phone ARELIS HORTON Unavailable Unavailable ARELIS HORTON Unavailable Unavailable PHYSICIAN, NO FAMILY Unavailable Unavailable Manish Schulz Unavailable Unavailable Manish Schulz Unavailable Unavailable Lam, Sharla DeHass Unavailable Unavailable Manish Sanford Unavailable Unavailable Lam, Sharla DeHass Unavailable Unavailable Lam, Sharla DeHass Unavailable Unavailable Jad, Lubna A [...] Physician Cj Rivera CNP Primary Care Provider Cj Rivera CNP Primary Care Provider Cj Rivera CNP Primary Care Provider NicoleMayelinCj C Unavailable Terry Kaiser Y Unavailable Unavailable Colton Hicks Unavailable Tianna Rasmussen Unavailable Unavailable Sharla Zamorano MD Primary Care Provider SHARLA ZAMORANO Primary Care Unavailable LISBETH DAVIES Attending [facility]available [facility] [place] Primary Care Provider Adelina Thompson Unavailable Unavailable Nicole Cj C Unavailable Unavailable Unavailable Chastity León Unavailable Unavailable Lorson LOCOMOTIVE INSPECTOR-RAIL ASSEMBLER, [facility] Care Pr ovider Lorson LOCOMOTIVE INSPECTOR-RAIL ASSEMBLER, [facility] Pr ovider [place] LOCOMOTIVE INSPECTOR-RAIL ASSEMBLER, [facility] Pr ovider Colton Hicks MD Unavailable DR MARGIE SOTO DO Primary Care Physician [phone] NANCY ARROYO MD Attending Unavailable [place] LOCOMOTIVE INSPECTOR-RAIL ASSEMBLER, [facility] Pr ovider YOANA WEAVER MD Attending Unavailable LORSON LOCOMOTIVE INSPECTOR-RAIL ASSEMBLER, [facility] Unavail able YOANA WEAVER MD Attending Unavailable LORSON LOCOMOTIVE INSPECTOR-RAIL ASSEMBLER, [facility] Unavail able L[facility]SON LOCOMOTIVE INSPECTOR-RAIL ASSEMBLER, [facility] Unavail able ADIA KAHN, DR ALEXEY El Attending Unavailable ADINA WHITT MD Attending Unavailable L[facility]SON LOCOMOTIVE INSPECTOR-RAIL ASSEMBLER, [facility] Unavail able L[facility]SON LOCOMOTIVE INSPECTOR-RAIL ASSEMBLER, [facility] Unavail able WIN ALLRED MD Attending Unavailable YOANA WEAVER MD Attending Unavailable [facility]SON LOCOMOTIVE INSPECTOR-RAIL ASSEMBLER, [facility] Unavail able BRITTANY KAHN, DR BLAIR Attending Unavailable [facility]SON LOCOMOTIVE INSPECTOR-RAIL ASSEMBLER, [facility] Unavail able SAWYER VASQUEZ, DR MONAE Attending Unavailab le LORSON LOCOMOTIVE INSPECTOR-RAIL ASSEMBLER, [facility] Unavail able BRITTANY KAHN, DR BLAIR Attending Unavailable L[facility]SON LOCOMOTIVE INSPECTOR-RAIL ASSEMBLER, [facility] Primary [facility] Unavail able BRITTANY DO, DR BLAIR Attending Unavailable LORSON LOCOMOTIVE INSPECTOR-RAIL ASSEMBLER, [facility] Care Unavail able LORSON LOCOMOTIVE INSPECTOR-RAIL ASSEMBLER, [place] Attending Unavail able LORSON LOCOMOTIVE INSPECTOR-RAIL ASSEMBLER, [place] Primary Care Unavail able LORSON LOCOMOTIVE INSPECTOR-RAIL ASSEMBLER, [place] Attending Unavail able LORSON LOCOMOTIVE INSPECTOR-RAIL ASSEMBLER, [facility] Care Unavail able LORSON LOCOMOTIVE INSPECTOR-RAIL ASSEMBLER, [place] Primary Care Unavail able TORI VASQUEZ FACP, MOLINA Martinez Admitting Unavail able BORIS VASQUEZ, AYUSH Attending Unavailable RADU VASQUEZ, MATT Consulting Unavailable STARR VASQUEZ, DR LINH Purdy Consulting Johan CORRALES MD, DR SCHMID Consulting Unavail able BRITTANY DO, DR BLAIR Attending Unavailable BRITTANY DO, DR BLAIR Primary Care Unavailable BRITTANY DO, DR BLAIR Attending Unavailable LORSON LOCOMOTIVE INSPECTOR-RAIL ASSEMBLER, [facility] Care Unavail able BRITTANY DO, DR BLAIR Primary Care Unavailable BRITTANY DO, DR BLAIR Attending Unavailable LORSON LOCOMOTIVE INSPECTOR-RAIL ASSEMBLER, [facility] Care Unavail able LORSON LOCOMOTIVE INSPECTOR-RAIL ASSEMBLER, [place] Attending Unavail able LORSON LOCOMOTIVE INSPECTOR-RAIL ASSEMBLER, [facility] Care Unavail able TORI VASQUEZ FACP, MOLINA W Attending Unavail able TORI VASQUEZ FACP, MOLINA Martinez Consulting Unavail able EBONYDecember Admitting Unavailable Lorson [facility], [facility] Provider HERMELINDA PRICE Attending Unavailable PAUL VIRGEN Primary Care Unavailable COLTON HICKS Attending Unavailable [facility] SHANTELL ROSSI Referring Unavailable L[facility], [facility] Unavaila ble L[facility], [facility] Unavaila ble NANCY BENEDICT Admitting Unavailable BRITTANY RUIZ Consulting Unavailable CHASTITY LEÓN Attending Unavailable CHASTITY LEÓN Consulting Unavailable JARET MORA Consulting UnavailLYNN Youssef Referring Unavailable LORSON, [facility] Unavaila ble UVALDO CHAVEZ Referring Unavailable LORSON, [facility] Unavaila ble NANCY AGRAWAL Admitting Unavailable NANCY AGRAWAL Attending Unavailable UVALDO CHAVEZ Attending Unavailable UVALDO CHAVEZ Referring [facility] CHESTER CERVANTES Admitting Unavailable CHESTER CERVANTES Attending Unavailable LORSON, CJ [facility] Primary Care Unavaila ble NANCY AGRAWAL Referring Unavailable LORSON, CJ [facility] Unavaila ble KURTCOLTON THOMPSON Admitting Unavailable RAMIROANA HARTMAN Referring Unavailab le LORSON, [facility] Unavaila ble ARIANNA OVALLE Attending Unava ilable COLTON HICKS Attending Unavailable STENTZ, PAUL Primary Care Unavailable ANGELA MILES Admitting Unavailable PANTHAM, CHASTITY T Attending Unavailable PANTHAM, CHASTITY T Referring Unavailable STENTZ, PAUL Primary Care Unavailable COLTON HICKS Attending Unavailable LORKELLIE, CJ [facility] Care Unavaila ble LORSON, CJ [facility] Care Unavaila ble TABBAA, KUTAIBA Referring Unavailable STENTZ, PAUL Primary Care Unavailable Nicole, Ms. Cj [facility] Unav ailable ANGELA MILES Admitting Unavailable Patient, Unavailable Referring Unavailable CASHAMCHASTITY Attending Unavailable TABBAA, KUTAIBA Referring Unavailable LORSON, CJ [facility] Care Unavaila ble KURT, COLTON T Referring Unavailable LORSON, CJ [facility] Care Unavaila ble TABBAA, KUTAIBA Referring Unavailable LORSON, CJ [facility] Care Unavaila ble TABBAA, KUTAIBA Referring Unavailable LORSON, CJ [facility] Care Unavaila ble TABBAA, KUTAIBA Referring Unavailable LORSON, CJ [facility] Care Unavaila ble MADELIN ALDANA Attending Unavailable STENTZ, PAUL Primary Care Unavailable TABBAA, KUTAIBA Referring Unavailable LORSON, CJ [facility] Primary Care Unavaila ble TABBAA, KUTAIBA Referring Unavailable LORSON, CJ [facility] Primary Care Unavaila ble TABBAA, KUTAIBA Attending Unavailable LORSON, CJ [facility] Primary Care Unavaila ble TABBAA, KUTAIBA Referring Unavailable LORSON, CJ [facility] Primary Care Unavaila ble TABBAA, KUTAIBA Referring Unavailable LORSON, CJ [facility] Primary Care Unavaila ble TABBAA, KUTAIBA Referring Unavailable STENTZ, PAUL Primary Care Unavailable TABBAA, KUTAIBA Attending Unavailable STENTZ, PAUL Primary Care Unavailable TABBAA, KUTAIBA Referring Unavailable STENTZ, PAUL Primary Care Unavailable TABBAA, KUTAIBA Referring Unavailable LORSON, [facility]J [facility] Primary Care Unavaila ble TABBAA, KUTAIBA Referring Unavailable STENTZ, PAUL Primary Care Unavailable STENTZ, PAUL Primary Care Unavailable MARAL GILLESPIE Attending Unavailable TABBAA, KUTAIBA Referring Unavailable STENTZ, PAUL Primary Care Unavailable TABBAA, KUTAIBA Referring Unavailable LORSON, [facility] Primary Care Unavaila ble TABBAA, KUTAIBA Referring Unavailable LORSON, [facility]J [facility] Primary Care Unavaila ble TABBAA, KUTAIBA Referring Unavailable LORSON, CJ [facility] Primary Care Unavaila ble TABBAA, KUTAIBA Referring Unavailable LORSON, [facility]J [facility] Primary Care Unavaila ble TABBAA, KUTAIBA Referring Unavailable LORSON, [facility]J [facility] Primary Care Unavaila ble TABBAA, KUTAIBA Attending Unavailable LORSON, CJ [facility] Primary Care Unavaila ble TABBAA, KUTAIBA Referring Unavailable LORSON, CJ [facility] Primary Care Unavaila ble MYRA CAROLINA Admitting Unavailable NAHID CRUZITO R Consulting Unavailable TAMANNA, HAFIZ A Attending Unavailable STENTZ, PAUL Primary Care Unavailable STENTZ, PAUL Primary Care Unavailable CRUZITO GARCIA R Consulting Unavailable TAMANNA, HAFIZ A Admitting Unavailable TAMANNA, HAFIZ A Attending Unavailable EL ANTOINE LAINEZRE Consulting Unavailable LORSON, CJ [facility] Primary Care Unavaila ble STENTZ, PAUL Primary Care Unavailable TAMANNA, HAFIZ A Referring Unavailable LORSON, CJ [facility] Primary Care Unavaila ble EL URBANO LAINEZ Admitting Unavailable EL FATOUURBANO JACOBSEN Attending Unavailable THOMMELISSA CRUZITO R Consulting Unavailable STENTZ, PAUL Primary Care Unavailable TAMANNA, HAFIZ A Referring Unavailable LORSON, CJ [facility] Primary Care Unavaila ble TAMANNA, HAFIZ A Referring Unavailable LORSON, CJ [facility] Primary Care Unavaila ble THANG HUNTER Attending Unavailable STENTZ, PAUL Primary Care Unavailable STENTZ, PAUL Primary Care Unavailable STENTZ, PAUL Primary Care Unavailable THEODORE SIMS Attending Unavailable STENTZ, PAUL Primary Care Unavailable CHESTER RODRIGUEZ Attending Unavailable STENTZ, PAUL Primary Care Unavailable STENTZ, PAUL Primary Care Unavailable STENTZ, PAUL Primary Care Unavailable THANG HUNTER Attending Unavailable LEE, LAURY Attending Unavailable SELF Referring Unavailable CJ RIVERA Primary Care Unavailable LYNN MAIER Attending Unavailable CJ RIVERA Primary Care Unavailable DOROTHEA JARA Referring Unavailable Allergies Allergy Classification Reported Allergen(s) Allergy Type Date of Onset Reaction(s) Facility Anti-Epileptic Agents (3 sources) gabapentin; Translations: [gabapentin] Drug Allergy 7 Swelling, Rash, Nausea/vomiting , Other [facility] Comment on above: Replaced free text a llergy Replaced free text a llergy Penicillins (antibiotic) (2 sources) Penicillin; Translations: [penicillin] Drug Allergy 3 [facility] Comment on above: Replaced free text a llergy Replaced free text a llergy Sulfonamides (antibiotic) (2 sources) Sulfonamide; Translations: [sulfa drugs] Drug Allergy 4 Hives, Other, [facility] (6 sources) gabapentin; Translations: [GABAPENTIN] Drug Allergy 4 [facility] Repository (6 sources) Penicillins; Translations: [PENICILLINS] Drug allergy (disorder) 4 [facility] Repository (6 sources) Sulfonamides (Antibiotic); Translations: [SULFA (SULFONAMIDE ANTIBIOTICS)] Drug allergy (disorder) 4 [facility] Repository (5 sources) gabapentin; Translations: [Neurontin] Drug Allergy [facility] Repository (20 sources) morphine; Translations: [morphine] Drug Allergy 6 Other: See Comments, Hives, Other [facility] Repository Comment on above: Replaced free text a llergy (4 sources) penicillin; Translations: [penicillin] Drug Allergy [facility] Repository (3 sources) Sulfonamides (Antibiotic); Translations: [sulfa] Propensity to adverse reactions to drug (disorder) [facility] Repository (1 source) topiramate; Translations: [facility]ax] [facility] Penicillin Drug Allergy [facility] Repository (1 source) Sulfonamides (Antibiotic) Drug allergy (disorder) [facility] Repository (20 sources) gabapentin; Translations: [gabapentin] Drug Allergy 4 Intolerance, Swelling, Rash, Nausea/vomiting [place] Comment on above: Replaced free text a llergy Replaced free text a llergy (20 sources) Penicillin; Translations: [penicillin] Drug Allergy Rash [place] Comment on above: Replaced free text a llergy Replaced free text a llergy (20 sources) Sulfonamides (Antibiotic); Translations: [sulfa drugs] Drug allergy [place] (1 source) Penicillins Drug Allergy 4 Intolerance [facility] Work Phone: (20 sources) Sulfonamides (Antibiotic) Drug Allergy 4 Intolerance, Hives, Unknown, Rash, Other [facility] Work Phone: (20 sources) Penicillins Drug Allergy 4 Intolerance, Rash [facility] Work Phone: (2 sources) Penicillin; Translations: [penicillin] Drug Allergy Rash [facility] Comment on above: Replaced free text a llergy Replaced free text a llergy (3 sources) Sulfonamides (Antibiotic) Rash [facility] (2 sources) Penicillins; Translations: [Penicillins] Allergy to drug (finding) [facility] Work Phone: (4 sources) Other; Translations: [OTHER] Propensity to adverse reactions 3 Rash [facility] Work Phone: (16 sources) topiramate; Translations: [TOPIRAMATE] Drug Allergy 7 Other [facility] Work Phone: Medications Current Medications Medication Drug [...] pcp, # 180 tab(s), 0 Refill(s), Pharmacy: [facility], 160, cm, 11/12/22 21:20:00 EST, Height, kg, 11/12/22 21:20:00 EST, Dosing Weight Start Date: 01/07/23 Status: Ordered Start: 10-15-2022 take 1 tablet by naomi every four hours as needed APAP/butalbital/caffeine 325-50-40 mg or al tablet (Fioricet) Dose = 1 tab(s), Oral, q4h, PRN as needed, # 30 tab(s), 3 Refill(s), Pharmacy: [facility], 160, cm, 10/18/22 12:11:00 EST, Height, kg, 10/19/22 11:32:00 EST, Dosing Weight Start Date: 11/10/22 Status: Ordered Start: 07-21-2022 End: 07-28-2022 take 1 capsule by mouth every four hours as needed acetaminophen/butalbital/caffeine 325 mg-50 mg-40 mg oral capsule 1-2 caps, Oral, q4h, PRN as needed for headache, X 7 day(s), # 30 cap(s), 0 Refill(s), Pharmacy: [facility], 160, cm, 06/17/22 20:28:00 EDT, Height Start Date: 07/21/22 Stop Date: 07/28/22 Status: Ordered Start: 06-17-2022 take 1 capsule by mo [facility] every four hours as needed acetaminophen/butalbital/caffeine 325 [...] day(s), # 10 tab(s), 0 Refill(s), Pharmacy: [facility], 160, cm, 04/12/22 11:00:00 EDT, Height [...] every four hours as needed for pain [place] 325- 5 mg oral tablet Dose = [...] day(s), # 12 tab(s), 0 Refill(s), Pharmacy: [facility], Pancreatitis, 160, cm, 03/07/23 23:09:00 EDT, [...] times daily PRN, indigestion, heartburn, Starting on [facility] 03/01/24 at 1805 amylase 90505 unt / lipase 67367 unt / protease 66548 unt delayed release oral capsule (20 sources) [...] tablets by mouth three times daily pancrelipase, Awv-Umtj-Ztbi, (Viokace) 20,880-78,300- 78,300 unit tablet Indications: Chronic pancreatitis, unspecified pancreatitis type (CMS/HCC) Take 2 tablets by mouth 3 times a day. 180 tablet 3 08/03/2023 12/01/2023 Active Start: 06-18-2023 pancrelipase ( Pmz-Nmcn-Slzr) (Creon) 12,000-38,000 -60,000 unit per capsule 3 capsule Start: 04-18-2023 take 1 capsule by [facility] four times daily Creon 36,000 units oral delayed release capsule 1 cap(s), Oral, QID, # 120 cap(s), 0 Refill(s) Start Date: 04/18/23 Status: Ordered Start: 04-09-2023 End: 10-11-2024 take 2 capsules by mouth three times daily at mealtime pancrelipase, Ufg-Octn-Kuzd, (Creon) 12,000-38,000 -60,000 unit capsule Indications: Chronic [...] qDay, # 90 tab(s), 3 Refill(s), Pharmacy: [facility], 160, cm, 04/01/23 14:05:00 EDT, Height, [...] qDay, # 30 tab(s), 3 Refill(s), Pharmacy: [facility], 160, cm, 07/26/22 14:12:00 EST, Height Start Date: 07/26/22 Stop Date: 11/23/22 Status: Ordered Start: 05-26-2021 End: 11-22-2021 ARIPiprazole 10 mg oral tabl et Dose : 10 mg = 1 tab(s), Oral, BID, # 180 tab(s), 1 Refill(s), Pharmacy: [facility], 160, cm, 05/26/21 13:15:00 [...] by mouth daily at bedtime. 30 tablet 11 07/06/2021 Active take 1 tablet by naomi [...] 0 Active baclofen 10 mg oral tablet (3 sources) gamma-Aminobutyric Acid-ergic Agonist Start: 06-08-20 take [...] eps, # 60 tab(s), 0 Refill(s), Pharmacy: [facility], 160, cm, 04/01/23 14:05:00 EDT, Height, [...] daily, # 1 EA, 0 Refill(s), Pharmacy: [facility], 160, cm, 08/09/23 13:03:00 EST, Height, [...] BID, # 180 tab(s), 1 Refill(s), Pharmacy: [facility], 160, cm, 07/02/21 9:50:00 [...] Tuesday, # 13 cap(s), 3 Refill(s), Pharmacy: [facility], 163, cm, 02/15/24 10:25:00 EDT, Height, kg, 02/15/24 10:25:00 EDT, Dosing Weight Start Date: 02/15/24 Stop Date: 02/09/25 Status: Ordered Start: 01-24-2023 End: 01-19-2024 cholecalciferol 1250 mcg (50 ,000 intl units) oral capsule Dose : 1,250 mcg = 1 cap(s), Oral, Tuesday, # 13 cap(s), 3 Refill(s), Pharmacy: [facility], 160, cm, 01/24/23 14:30:00 EDT, Height, kg, 01/24/23 14:30:00 EDT, Dosing Weight Start Date: 01/24/23 Stop Date: 01/19/24 Status: Ordered Start: 01-24-2023 End: 01-19-2024 cholecalciferol (Vitamin D-3 ) 1,250 mcg (50,000 unit) capsule Dose : 1,250 mcg = 1 cap(s), Oral, Tuesday, # 13 cap(s), 3 Refill(s), Pharmacy: [facility], 160, cm, 01/24/23 14:30:00 [...] qWeek, # 12 cap(s), 0 Refill(s), Pharmacy: [facility], 160, cm, 04/12/22 11:00:00 EDT, Height, kg, 04/12/22 11:00:00 EDT, Dosing Weight Start Date: 04/12/22 Status: Ordered Start: 06-23-2021 cholecalcifero l 1250 mcg (50,000 intl units) oral capsule Dose : 1,250 mcg = 1 cap(s), Oral, qWeek, # 12 cap(s), 3 Refill(s), Pharmacy: [facility], 161, cm, 06/22/21 14:39:00 EDT, Height, kg, 06/22/21 14:39:00 EDT, Dosing Weight Start Date: 06/23/21 Status: Ordered Start: 06-23-2021 cholecalcifero l 1250 mcg (50,000 intl units) oral capsule Dose : 1,250 mcg = 1 cap(s), Oral, qWeek, # 12 cap(s), 3 Refill(s), Pharmacy: [facility], 161, cm, 06/22/21 14:39:00 EDT, Height, kg, 06/22/21 14:39:00 EDT, Dosing Weight Start Date: 06/23/21 Status: Ordered take 1 capsule by [facility] every week cholecalciferol (Vitamin D-3) 50,000 unit [...] qDay, # 90 tab(s), 1 Refill(s), Pharmacy: [facility], 160, cm, 01/02/24 14:52:00 EDT, Height, [...] qDay, # 90 tab(s), 1 Refill(s), Pharmacy: [facility], 160, cm, 01/24/23 14:30:00 [...] BID, # 60 tab(s), 1 Refill(s), Pharmacy: [facility], 161, cm, 06/22/21 14:39:00 EDT, Height, [...] 04/28/2023 04/27/2024 Active Dextromethorphan (3 sources) Uncompetitive I-ebagji-M-asparta te Receptor Antagonist, Sigma-1 Agonist Start: 09-15-2023 take 1 dose by mouth every four hours as needed dextromethorphan 10 mg/5 mL oral syrup Dose : 10 mg = 5 mL, Oral, q4h, PRN as needed for cough, # 240 mL, 0 Refill(s), Pharmacy: [facility], 160, cm, 09/14/23 9:08:00 EST, Height, [...] Start: 06-18-2023 take 1 capsule by mo ut every four hours as needed diphenhydrAMINE (BENADryl) [...] symptoms Quantity: 0 Refills: 0 Ordered: 26-Apr-2023 Ann Marie Hernandez Generic Substitution Allowed diphenhydramine/Maalox/lidoc tate (Magic Mouthwash) [...] at 2100 take 1 capsule by mo [facility] once daily at bedtime doxepin (SINEquan) 50 mg capsule Take 1 capsule (50 mg) by mouth once daily at bedtime. 0 Active fenofibrate 145 mg oral tablet (20 sources) Peroxisome Proliferator Receptor alpha Agonist Start: 12-05-2023 take 160 mg by mouth once daily 160 mg, oral, Daily, First dose on Tue12/05/23 at 1430 Start: 11-11-2023 take 160 mg by mouth once daily 160 mg, oral, Daily, First dose on Tue11/11/23 at 1300 Start: 06-18-2023 fenofibrate (T riglide) tablet 160 mg Start: 02-02-2023 fenofibrate na nocrystallized (TRICOR) 145 mg tablet Take by mouth. 02/02/2023 Active fluconazole 150 mg oral tablet [...] 0 Refill(s), 06/06/23 1:20:00 PM EDT, Pharmacy: [facility], 160, cm, 04/01/23 14:05:00 EDT, Height, [...] Loop Diuretic Start: 04-15-2021 End: 06-30-2024 take 1 tablet by mouth once daily furosemide (LASIX) 40 mg tablet Take 40 mg by mouth once daily. 04/15/2021 Active take 0.5 tablet by mouth once da [...] qDay, # 30 tab(s), 3 Refill(s), Pharmacy: [facility], 163, cm, 02/15/24 10:25:00 EDT, Height, kg, 02/15/24 10:25:00 EDT, Dosing Weight Start Date: 02/15/24 Status: Ordered Start: 10-17-2023 glipiZIDE 5 mg oral tablet, extended release Dose : 5 mg = 1 tab(s), Oral, qDay, # 30 tab(s), 3 Refill(s), Pharmacy: [facility], 160, cm, 09/14/23 9:08:00 EST, Height, [...] qDay, # 90 tab(s), 2 Refill(s), Pharmacy: [facility], 160, cm, 01/25/23 10:30:00 [...] Insul in [place] g insulin asp prt-insu pietro aspart (NovoLOG Mix 70-30 U-100 Insuln) 100 [...] insulin aspart, human 100 unt/ml pen injector (7 sources) Insulin Analog Start: 02-15-2024 NovoLOG FlexPe n 100 units/mL injectable solution Dose : 18 unit(s) =, Subcutaneous, TIDAC, # 15 mL, 1 Refill(s), other reason (Rx) Start Date: 02/15/24 Status: Ordered Start: 11-04-2023 NovoLOG FlexPe n 100 units/mL injectable solution Dose : 15 unit(s) =, Subcutaneous, TIDAC, # 15 mL, 1 Refill(s), Pharmacy: [facility], 160, cm, 10/17/23 15:51:00 EST, Height, kg, 10/17/23 15:51:00 EST, Dosing Weight Start Date: 11/04/23 Status: Ordered Start: 09-30-2023 NovoLOG FlexPe n 100 units/mL injectable solution Dose : 5 unit(s) =, Subcutaneous, TIDAC, # 1 EA, 1 Refill(s), Pharmacy: [facility], 160, cm, 09/14/23 9:08:00 EST, Height, kg, 09/14/23 9:08:00 EST, Dosing Weight Start Date: 09/30/23 Status: Ordered Start: 09-30-2023 NOVOLOG FLEXPE N U-100 INSULIN 100 unit/mL (3 mL) INJECT 18 UNITS SUBCUTANEOUSLY THREE TIMES DAILY BEFORE MEALS 09/30/2023 Active 3 ml insulin glargine 300 unt/ml pen injector (18 sources) Insulin Analog Start: 02-15-2024 inject 1 dose by subcutaneous injection once daily Toujeo Max SoloStar 300 units/mL subcutaneous solution Dose : 34 unit(s) =, Subcutaneous, qDay, # 4.5 mL, 2 Refill(s), Pharmacy: [facility], Diabetes, 163, cm, 02/15/24 10:25:00 EDT, Height, kg, 02/15/24 10:25:00 EDT, Dosing Weight Start Date: 02/15/24 Status: Ordered Start: 11-04-2023 inject 1 dose by sub cutaneous injection once daily Toujeo Max SoloStar 300 units/mL subcutaneous solution Dose : 55 unit(s) =, Subcutaneous, qDay, # 6 mL, 2 Refill(s), Pharmacy: [facility], 160, cm, 10/17/23 15:51:00 EST, Height, [...] qHS, # 15 mL, 0 Refill(s), Pharmacy: [facility], 160, cm, 09/14/23 9:08:00 EST, Height, [...] First dose on Tue12/05/23 at 1600 Ketamine (14 sources) General Anesthetic Start: 02-15-2024 ketamine 5% [...] 1410 ketamine HCl powder 100 % powd (3 sources) Start: 04-27-2024 ketamine HCl powder 100 [...] week, # 100 mL, 0 Refill(s), Pharmacy: [facility], 160, cm, 01/02/24 14:52:00 EDT, Height, [...] qDay, # 90 cap(s), 1 Refill(s), Pharmacy: [facility], 160, cm, 01/24/23 14:30:00 [...] sent, # 90 cap(s), 3 Refill(s), Pharmacy: [facility] ([facility]), 162.5, cm, 02/11/22 18:32:00 EDT, Height, kg, 03/10/22 15:57:00 EDT, Dosing Weight Start Date: 04/05/22 Status: Ordered Start: 06-11-2021 Linzess 290 mc g oral capsule Dose : 290 mcg = 1 cap(s), Oral, qDay, Replaces 30 day rx sent, # 90 cap(s), 3 Refill(s), Pharmacy: [facility], 160, cm, 05/29/21 17:52:00 [...] BID, # 180 tab(s), 3 Refill(s), Pharmacy: [facility], 160, cm, 05/26/21 13:15:00 [...] qDay, # 30 tab(s), 3 Refill(s), Pharmacy: [facility], 160, cm, 03/23/23 11:55:00 EDT, Height [...] qHS, # 90 tab(s), 3 Refill(s), Pharmacy: [facility] #[facility], 160, cm, 04/01/23 14:05:00 EDT, Height, kg, 06/03/23 15:06:00 EDT, Dosing Weight Start Date: 06/06/23 Stop Date: 05/31/24 Status: Ordered Start: 05-26-2021 End: 11-22-2021 mirtazapine 30 mg oral table t Dose : 30 mg = 1 tab(s), Oral, qHS, # 90 tab(s), 1 Refill(s), Pharmacy: [facility], 160, cm, 05/26/21 13:15:00 [...] (Nicorette) gum 2 mg Start: 06-18-2023 nicotine (Moar derm CQ) 7 mg/24 hr patch 1 [...] hours Quantity: 30 Refills: 0 Ordered: 28-Apr-2023 Alsallamin Terry Y Start: 28-Apr-2023 Generic Substitution Allowed [...] Cravings Quantity: 0 Refills: 0 Ordered: 12-May-2023 Hashish, Mohamed Generic Substitution Allowed nitrofurantoin macrocrystals-monohydrate 100 mg [...] 30 capsule 0 04/09/2023 04/08/2024 Active nystatin 140383 unt/ml oral suspension (17 sources) Polyene Antifungal Start: 02-09-20 take 5 mL by mouth four times daily nystatin 100,000 units/mL oral suspension See Instructions, take 5 (FIVE) mL orally FOUR times daily for 7 (SEVEN) days, # 140 mL, 0 Refill(s), Pharmacy: [facility], 160, cm, 01/02/24 14:52:00 EDT, Height, [...] capsule (20 sources) Proton Pump Inhibitor Start: 09-08-2019 End: 06-30-2024 omeprazole 40 mg oral delayed release capsule Dose : 40 mg = 1 cap(s), Oral, BID, # 180 cap(s), 1 Refill(s), Pharmacy: [facility], 160, cm, 01/02/24 14:52:00 EDT, Height, kg, 01/02/24 14:52:00 EDT, Dosing Weight Start Date: 01/02/24 Stop Date: 06/30/24 Status: Ordered Omeprazole 40 MG Oral Capsule [...] pain moderate (4-6), first line, Starting on [facility] 03/01/24 at 1533, If ordered PRN for [...] Start: 11-15-2023 take 1 tablet by naomi every six hours as needed oxyCODONE (Roxicodone) immediate release tablet 5 mg Start: 06-16-2023 take 1 tablet by naomi every four hours as needed oxyCODONE (Roxicodone) [...] EC tablet 40 mg polyethylene glycol 3350 77591 mg powder for oral solution (9 sources) [...] gram(s), 1 Refill(s), 11/22/21 14:17:00 EST, Pharmacy: [facility], 160, cm, 05/26/21 13:15:00 [...] TID, # 270 tab(s), 1 Refill(s), Pharmacy: [facility], 160, cm, 01/02/24 14:52:00 EDT, Height, [...] mEq, oral, Daily, First d ose on Tue12/05/23 at 1430 Capsule may be [...] TID, # 270 tab(s), 1 Refill(s), Pharmacy: [facility], 160, cm, 01/24/23 14:30:00 EDT, Height, kg, 01/24/23 14:30:00 EDT, Dosing Weight Start Date: 01/24/23 Stop Date: 07/23/23 Status: Ordered Start: 12-02-2022 potassium chlo ride 20 mEq oral tablet, extended release Dose : 20 mEq = 1 tab(s), Oral, TID, in lieu of provider absence, # 90 tab(s), 0 Refill(s), Pharmacy: [facility] #[facility], 160, cm, 11/12/22 21:20:00 EST, Height [...] DAY, # 180 tab(s), 1 Refill(s), Pharmacy: [facility], 160, cm, 05/26/21 13:15:00 [...] daily. Active take 1 tablet by naomi th three times daily potassium chloride 20 mEq [...] first line, Starting on Tue12/05/23 at 1410 Start: 06-18-2023 take 1 tablet by naomi th every six hours as needed promethazine (Phenergan) tablet 25 mg Start: 02-24-2023 End: 04-25-2023 promethazine 25 mg oral tabl et Dose : 25 mg = 1 tab(s), Oral, BID, # 28 tab(s), 0 Refill(s), Pharmacy: [facility], 160, cm, 04/01/23 14:05:00 EDT, Height, [...] PCP, # 90 tab(s), 0 Refill(s), Pharmacy: [facility] #[facility], 160, cm, 08/09/23 13:03:00 EST, Height, 99.3, kg, 08/09/23 13:03:00 EST, Dosing Weight Start Date: 09/01/23 Stop Date: 11/30/23 Status: Ordered Start: 06-18-2023 rivaroxaban (X arelto) tablet 10 mg Start: 01-24-2023 End: 07-23-2023 Xarelto 10 mg oral tablet Do se : 10 mg = 1 tab(s), Oral, qDay, # 90 tab(s), 1 Refill(s), Pharmacy: [facility], 160, cm, 01/24/23 14:30:00 [...] qDay, # 90 tab(s), 3 Refill(s), Pharmacy: [facility] ([facility]), 162.5, cm, 02/11/22 18:32:00 EDT, Height, 90.9, kg, 02/11/22 18:32:00 EDT, Dosing Weight Start Date: 03/02/22 Status: Ordered take 6 tablets by [facility] once daily Xarelto 10 MG [...] BID, # 180 tab(s), 1 Refill(s), Pharmacy: [facility], 160, cm, 01/24/23 14:30:00 EDT, Height, kg, 01/24/23 14:30:00 EDT, Dosing Weight Start Date: 01/24/23 Stop Date: 07/23/23 Status: Ordered Start: 10-11-2022 End: 12-10-2022 rOPINIRole 0.5 mg oral table t Dose : 0.5 mg = 1 tab(s), Oral, BID, # 60 tab(s), 1 Refill(s), Pharmacy: [facility], 160, cm, 07/26/22 14:12:00 EST, Height, kg, 07/27/22 9:16:00 EST, Dosing Weight Start Date: 10/11/22 Stop Date: 12/10/22 Status: Ordered Start: 07-14-2022 End: 09-12-2022 rOPINIRole 0.25 mg oral tabl et Dose : 0.25 mg = 1 tab(s), Oral, BID, # 60 tab(s), 1 Refill(s), Pharmacy: [facility], 160, cm, 06/17/22 20:28:00 EDT, Height Start Date: 07/14/22 Stop Date: 09/12/22 Status: Ordered Start: 02-06-2020 take 1 tablet by naomi th once daily rOPINIRole (REQUIP) 2 mg tablet See Instructions, TAKE 1 TABLET BY MOUTH DAILY, # 28 tab(s), 5 Refill(s), Pharmacy: [facility] - [id number], 161, cm, 02/06/20 14:12:00 EDT, Height, kg, [...] qDay, # 90 tab(s), 3 Refill(s), Pharmacy: [facility] ([facility]), 162.5, cm, 02/11/22 18:32:00 EDT, Height, kg, 02/11/22 18:32:00 EDT, Dosing Weight Start Date: 03/02/22 Status: Ordered Start: 09-17-2021 spironolactone 25 mg oral tablet Dose : 25 mg = 1 tab(s), Oral, qDay, # 30 tab(s), 1 Refill(s), Pharmacy: [facility], 160, cm, 09/09/21 12:16:00 EST, Height, kg, 09/09/21 12:16:00 EST, Dosing Weight Start Date: 09/17/21 Status: Ordered Start: 07-16-2021 spironolactone 25 mg oral tablet Dose : 25 mg = 1 tab(s), Oral, qDay, # 30 tab(s), 1 Refill(s), Pharmacy: [facility], 160, cm, 07/02/21 9:50:00 EDT, Height, kg, 07/02/21 10:03:00 EDT, Dosing Weight Start Date: 07/16/21 Status: Ordered Start: 06-23-2021 spironolactone 25 mg oral tablet Dose : 25 mg = 1 tab(s), Oral, qDay, # 30 tab(s), 0 Refill(s), Pharmacy: [facility], 161, cm, 06/22/21 14:39:00 EDT, Height, kg, 06/22/21 14:39:00 EDT, Dosing Weight Start Date: 06/23/21 Status: Ordered tiZANidine 4 mg oral tablet (1 source) Central alpha-2 Adrenergic Agonist take 1 tablet by mouth every eight hours as needed for muscle spasms tiZANidine (ZANAFLEX) 4 mg tablet Take 1 tablet by mouth every 8 hours as needed for muscle spasms for ten days Active topiramate 25 mg oral tablet (3 sources) [...] DNA Polymerase Inhibitor Start: 05-26-20 End: 01-18-20 25 take 1 tablet by mouth once daily [...] chew. Start: 12-05-2023 take 1 capsule by mo ut once daily 150 mg, oral, Daily, First [...] qDay, # 90 cap(s), 1 Refill(s), Pharmacy: [facility], 160, cm, 01/02/24 14:52:00 EDT, Height, [...] mg/day., # 90 cap(s), 1 Refill(s), Pharmacy: [facility], 160, cm, 01/24/23 14:30:00 EDT, Height, kg, 01/24/23 14:30:00 EDT, Dosing Weight Start Date: 01/24/23 Stop Date: 07/23/23 Status: Ordered Start: 12-01-2022 End: 07-23-2023 take 1 capsule by mouth once daily venlafaxine 75 mg oral capsule, extended release Dose : 75 mg = 1 cap(s), Oral, qDay, for a total of 225 mg/day., # 90 cap(s), 1 Refill(s), Pharmacy: [facility], 160, cm, 01/24/23 14:30:00 EDT, Height, kg, 01/24/23 14:30:00 EDT, Dosing Weight Start Date: 01/24/23 Stop Date: 07/23/23 Status: Ordered Start: 10-20-2022 venlafaxine 22 5 mg oral tablet, extended release Dose : 225 mg = 1 tab(s), Oral, qDay, # 30 tab(s), 3 Refill(s), Pharmacy: [facility], 160, cm, 10/18/22 12:11:00 EST, Height Start Date: 10/20/22 Status: Ordered Start: 06-17-2022 venlafaxine 15 0 mg oral capsule, extended release Dose : 150 mg = 1 cap(s), Oral, qDay, # 30 cap(s), 0 Refill(s), Pharmacy: [facility], 160, cm, 11/12/22 21:20:00 EST, Height Start Date: 12/01/22 Status: Ordered Start: 10-23-2021 End: 01-21-2022 venlafaxine 150 mg oral caps ule, extended release Dose : 150 mg = 1 cap(s), Oral, qDay, one time refill in absence of PCP, # 90 cap(s), 0 Refill(s), [facility], 160, cm, 09/22/21 22:52:00 EST, Height, kg, 09/22/21 22:52:00 EST, Dosing Weight Start Date: 10/23/21 Stop Date: 01/21/22 Status: Ordered Start: 05-26-2021 End: 01-21-2022 venlafaxine 150 mg oral caps ule, extended release Dose : 150 mg = 1 cap(s), Oral, qDay, one time refill in absence of PCP, # 90 cap(s), 0 Refill(s), Pharmacy: [facility], 160, cm, 09/22/21 22:52:00 [...] Ordered warfarin sodium 2.5 mg oral tablet (17 sources) Vitamin K Antagonist Start: 03-24-2024 End: 04-18-2025 take 1 tablet by mouth once daily warfarin (COUMADIN) 2.5 mg tablet Take 1 tablet by mouth daily or as directed by [facility] 03/24/2024 04/18/2025 Active Start: 03-02-2024 take [...] clinic, # 90 tab(s), 3 Refill(s), Pharmacy: [facility], 160, cm, 05/26/21 13:15:00 [...] Status: Ordered take 2 tablets by mo uth every eight hours as needed acetaminophen 500 [...] discomfort, # 90 tab(s), 1 Refill(s), Pharmacy: [facility], 160, cm, 05/26/21 13:15:00 [...] sources) Low Molecular Weight Heparin Start: 12-08-19 End: 03-26-20 24 inject 1 mL by subcutaneous injection twice [...] infusion (premix) Start: 12-05-2023 End: 12-07-2023 take 7114-3485 [IU] intravenously every four hours as needed [...] 02-28-2024 0.5 mg, intravenous, Once, O n Tue02/27/24 at 2340, For 1 dose Start: 02-27-2024 [...] evening Quantity: 0 Refills: 0 Ordered: 03-Apr-2023 Polish, Christina Generic Substitution Allowed Comment on above: [...] 1 Refill(s), 03/02/24 3:34:00 PM EDT, Pharmacy: [facility], 160, cm, 01/02/24 14:52:00 EDT, Height, kg, 01/02/24 14:52:00 EDT, Dosing Weight Start Date: 01/02/24 Stop Date: 03/02/24 Status: Ordered Start: 01-24-2023 End: 07-23-2023 methenamine hippurate 1 g or al tablet Dose : 1 gram(s) = 1 tab(s), Oral, qDay, X 90 day(s), # 90 tab(s), 1 Refill(s), 07/23/23 2:55:00 PM EDT, Pharmacy: [facility], 160, cm, 01/24/23 14:30:00 EDT, Height, kg, 01/24/23 14:30:00 EDT, Dosing Weight Start Date: 01/24/23 Stop Date: 07/23/23 Status: Ordered Start: 06-29-2022 End: 12-26-2022 methenamine hippurate 1 g or al tablet Dose : 1 gram(s) = 1 tab(s), Oral, qDay, X 90 day(s), # 90 tab(s), 1 Refill(s), 12/26/22 13:32:00 EDT, Pharmacy: [facility], 160, cm, 06/17/22 20:28:00 [...] Start: 01-21-2021 take 1 tablet by naomi once daily Methenamine Hippurate (HIPREX) 1 gram [...] mouth once 10 mg, oral, Once, On Tue03/05/24 at 1815, For 1 dose 5 ml [...] mouth once 4 mg, oral, Once, On Tue03/05/24 at 1815, For 1 dose Start: 02-27-2024 [...] sodium chloride 0.9% 50 mL IV sennosides, pen[facility] 8.6 mg oral tablet (1 source) Start: 12-08-2023 End: 12-08-2023 sennosides (Senokot) tablet 17.2 mg Problems Active Problems Problem Classification Problem Date Documented Da te Episodic/Chronic Abdominal pain (20 sources) Epigastric pain; Translations: [Unspecified abdominal pain] Onset: 10-28-2017 Episodic Acute cerebrovascular disease (20 sources) Cerebrovascular accident; [...] sources) Hypokalemia; Translations: [Hypokalemia] Onset: 12-02-2017 Episodic Genitourinary symptoms and ill-defined conditions (20 sources) Dysuria; Translations: [Dysuria] Onset: 07-03-2023 05-10-2020 Episodic Headache, including migraine (20 sources) Migraine, [...] aftercare (1 source) Drug therapy finding; Translations: [FPC (current) use of anticoagulants] 03-05-2024 Episodic Other [...] pyloric stenosis; Translations: [Adult hypertrophic pyloric stenosis ([facility])] Onset: 03-17-2024 Episodic Other ear and sense [...] of intestine, unspecified] Onset: 04-10-2016 08-04-2014 Chronic Residual codes; unclassified (2 sources) Restlessness [...] (3 sources) 1 MONTH HOSP DSC FROM [place], CHRONIC PANCREATITIS NO CONSULT 04-08-2023 Comment on above: 1 MONTH HOSP DSC [facility], CHRONIC PANCREATITIS NO CONSULT Unclassified (1 source) HOSP DSC FROM [place] [address], CHRONIC PAIN FROM PANCREATITIS. DISCLAIMER ON DSC SUMMARY 04-08-2023 Comment on above: HOSP DSC FROM [place] [address], CHRONIC PAIN FROM PANCREATITIS. 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, unspecified] Onset: 06-14-2016 05-21-2021 Chronic Past or Other Problems Problem Classification Problem Date Documented Da te Episodic/Chronic Administrative/social admission (1 source) Tobacco abuse counseling; [...] [Gastrointestinal hemorrhage, unspecified] Onset: 1 08-24-2017 Episodic Headache; including migraine (20 sources) Headache; Translations: [Headaches] Onset: 0 11-29-2019 Episodic Intestinal obstruction without hernia (20 sources) Small bowel obstruction; Translations: [Unspecified intestinal obstruction, unspecified as to partial versus complete obstruction] Onset: 3 06-09-2022 Episodic Malaise and fatigue (20 sources) Asthenia; Translations: [Weakness] Onset: 1 Episodic Other aftercare (1 source) Other ocean transportation intermediary (current) drug therapy; Translations: [OTHER NURSING HOME (CURRENT) DRUG THERAPY] Onset: 8 Episodic Other aftercare (4 sources) long term acute care registered nurse (current) use of anticoagulants; Translations: [long term acute care registered nurse (current) use of anticoagulants] Onset: 8 Episodic Other aftercare (20 sources) Long-term current use of anticoagulant; Translations: [long term acute care registered nurse (current) use of anticoagulants] Onset: 1 05-22-2021 [...] pancreatitis] Onset: 3 Resolved: 4 07-19-2019 Episodic Phlebitis; thrombophlebitis and thromboembolism (20 sources) Personal history of other venous thrombosis and embolism; Translations: [Deep venous thrombosis] Onset: 8 10-05-2013 Episodic Pneumonia (except that caused by tuberculosis [...] (15 sources) Onset: 3 Resolved: 4 08-23-2023 Urinary tract infections (20 sources) Acute pyelonephritis; Translations: [Acute pyelonephritis] Onset: 7 05-21-2021 Episodic Viral infection (4 sources) Herpesviral vesicular dermatitis; Translations: [Herpesviral vesicular dermatitis] Onset: 4 Episodic Results Test Name Value Interpretation Reference Range Facility UA DIP, URINE (POC)on 2023 BILIRUBIN UA (POCT) Negative Negative [facility] CLARITY UA (POCT) Clear [facility] COLOR UA (POCT) Yellow [facility] GLUCOSE UA (POCT) Negative Negative mg/dL [facility] Hemoglobin Ql (U) Negative Negative [facility] KETONE UA (POCT) Negative Negative mg/dL [facility] LEUKOCYTES UA (POCT) Negative Negative [facility] NITRITE UA (POCT) Negative Negative [facility] PH UA (POCT) 6.0 4.5 - 8.0 [facility] Protein Ql (U) Negative Negative mg/dL [facility] SPECIFIC GRAVITY UA (POCT) 1.025 1.005 - 1.030 [facility] UROBILINOGEN UA (POCT) 0.2 Normal E.U./dL [facility] Location: [place], [address], [place], [address] [facility] POINT OF CARE [facility] Ken 06-11-2024 MICHELLE Telephone (OBGYWM) MATYDOROTHEA Stanford ([id number]) 1975 F Date Time Provider Department 06/11/24 LAURY ORR OBGYWM During your visit today, we recorded the following information about you: Elyse Rosales RN 06/11/2024 10:03 AM Signed Patient calling with [...] if she was to try that. Laury Orr, LISHA.Cj Bojorquez RN 06/11/2024 12:09 PM Signed Called [...] DAILY, # 28 tab(s), 5 Refill(s), Pharmacy: [facility] [place] [id number], 161, cm, 02/06/20 14:12:00 EDT, Height, kg, [...] 05/21/2021 Gas (more content not included)... Normal [facility] Bacteria Wnd Culton 06-08-20 24 Bacteria identified Cx Nom (Wound) ORGANISM ID: [id number] Rare skin keron GRAM STAIN: No organisms seen No Polymorphonuclear Leukocytes Normal [facility] Comment on above: Performed By: #### 6 462-6 #### [facility] CLIA [id number] [address] [place] [address] [place] CNOVon 06-08-2024 CNOV Office Visit (OBGYWM ) DOROTHEA RUTLEDGE ([id number]) 1975 F Date Time Provider Department 06/08/24 2:30 PM LAURY ORR OBGYWM During your visit today, we recorded the following information about you: Blood pressure Weight 134/78 107.5 kg Laury Orr APRN.RAIL ASSEMBLER 06/08/2024 4:04 PM Signed Dorothea Stanford Maty is a 48 year old female who [...] L2 SAB0 IAB0 Ectopic0 Multiple0 Live Births0 Gum Puller History LMP: Hysterectomy Age at Menarche: Age at First : Age at Menopause: Gum Puller History Comments: Sexual Activity: Yes; Male Contraception: [...] SPECIMEN BRUSHING/WASHING 06/11/15 Cholangiopancreatograph y (ERCP[facility] ESOPHAGOGASTRODUODENOSC OPY TRANSORAL DIAGNOSTIC EGD [facility] FILTER [...] DAILY, # 28 tab(s), 5 Refill(s), Pharmacy: [place] [id number], 161, cm, 02/06/20 14:12:00 EDT, Height, kg, [...] was discu (more content not included)... Normal [facility] CBC W Auto Differential pane l (Bld)on 06-04-2024 Basophils (Bld) [#/Vol] 0.07 x10*3/uL Normal 0.00-0.10 [facility] Comment on above: Performed By: #### 5 7021-8 ####IRVIN MUNGUIA ([id number])[facility])[address] [place] [address] Basophils/100 WBC (Bld) 0.8 % Normal 0.0-2.0 [facility] Comment on above: Performed By: #### 5 7021-8 ####IRVIN MUNGUIA ([id number])[facility] ([facility])[address] [place] [address] Eosinophils (Bld) [#/Vol] 0.16 x10*3/uL Normal 0.00-0.70 [facility] Comment on above: Performed By: #### 5 7021-8 ####IRVIN MUNGUIA ([id number])[facility] ([facility])[address] [place] [address] 86816 Eosinophils/100 WBC (Bld) 1.8 % Normal 0.0-6.0 [facility] Comment on above: Performed By: #### 7021-8 ####IRVIN MUNGUIA ([id number])[facility] ([facility])[address] [place] [address] Erythrocyte distribution width (RBC) [Ratio] 15.9 % High 11.5-14.5 [facility] Comment on above: Performed By: #### 5 7021-8 ####IRVIN MUNGUIA ([id number])[facility] ([facility])[address] [place] [address] Hematocrit (Bld) [Volume fraction] 45.0 % Normal 36.0-46.0 [facility] Comment on above: Performed By: #### 5 7021-8 ####IRVIN MUNGUIA ([id number])[facility])[address] [place] [address] 05263 Hemoglobin (Bld) [Mass/Vol] 13.7 g/dL Normal 12.0-16.0 [facility] Comment on above: Performed By: #### 5 7021-8 ####IRVIN MUNGUIA ([id number])[facility] ([facility])[address] [place] [address] 25834 Immature granulocytes (Bld) [#/Vol] 0.11 x10*3/uL Normal 0.00-0.70 [facility] Comment on above: Performed By: #### 5 7021-8 ####IRVIN MUNGUIA ([id number])[facility])[address] [place] [address] 97450 Immature granulocytes/100 WBC (Bld) 1.2 % High 0.0-0.9 [facility] Comment on above: Result Comment: Debbie ture Granulocyte Count (IG) includes promyelocytes, myelocytes and metamyelocytes but does not include bands. Percent differential counts (%) should be interpreted in the context of the absolute cell counts (cells/UL). Performed By: #### 5 7021-8 ####IRVIN MUNGUIA ([id number])[facility])[address] [place] [address] Lymphocytes (Bld) [#/Vol] 2.10 x10*3/uL Normal 1.20-4.80 [facility] Comment on above: Performed By: #### 5 7021-8 ####IRVIN MUNGUIA ([id number])[facility])[address] [place] [address] Lymphocytes/100 WBC (Bld) 23.7 % Normal 13.0-44.0 [facility] Comment on above: Performed By: #### 5 7021-8 ####IRVIN MUNGUIA ([id number])[facility])[address] [place] [address] 35764 MCH (RBC) [Entitic mass] 26.4 pg Normal 26.0-34.0 [facility] Comment on above: Performed By: #### 5 7021-8 ####IRVIN MUNGUIA ([id number])[facility])[address] [place] [address] 00865 MCHC (RBC) [Mass/Vol] 30.4 g/dL Low 32.0-36.0 [facility] Comment on above: Performed By: #### 5 7021-8 ####IRVIN MUNGUIA ([id number])[facility])[address] [place] [address] 01460 MCV (RBC) [Entitic vol] 87 fL Normal 80-100 [facility] Comment on above: Performed By: #### 5 7021-8 ####IRVIN MUNGUIA ([id number])[facility])[address] [place] [address] 34035 Monocytes (Bld) [#/Vol] 0.73 x10*3/uL Normal 0.10-1.00 [facility] Comment on above: Performed By: #### 5 7021-8 ####IRVIN MUNGUIA ([id number])[facility])[address] [place] [address] Monocytes/100 WBC (Bld) 8.2 % Normal 2.0-10.0 [facility] Comment on above: Performed By: #### 5 7021-8 ####IRVIN MUNGUIA ([id number])[facility])[address] [place] [address] 57668 Neutrophils (Bld) [#/Vol] 5.70 x10*3/uL Normal 1.20-7.70 [facility] Comment on above: Result Comment: Perc ent differential counts (%) should be interpreted in the context of the absolute cell counts (cells/uL). Performed By: #### 5 7021-8 ####IRVIN MUNGUIA ([id number])[facility])[address] [place] [address] 89462 Neutrophils/100 WBC (Bld) 64.3 % Normal 40.0-80.0 [facility] Comment on above: Performed By: #### 5 7021-8 ####IRVIN MUNGUIA ([id number])[facility])[address] [place] [address] 38491 Nucleated RBC/100 WBC (Bld) [Ratio] 0.0 /100 WBCs Normal 0.0-0.0 [facility] Comment on above: Performed By: #### 5 7021-8 ####IRVIN MUNGUIA ([id number])[facility])[address] [place] [address] 19940 Platelets (Bld) [#/Vol] 322 x10*3/uL Normal 150-450 [facility] Comment on above: Performed By: #### 5 7021-8 ####IRVIN MUNGUIA ([id number])[facility])[address] [place] [address] 56033 RBC (Bld) [#/Vol] 5.19 x10*6/uL Normal 4.00-5.20 [facility] Comment on above: Performed By: #### 5 7021-8 ####IRVIN MUNGUIA ([id number])[facility])[address] [place] [address] 04807 WBC (Bld) [#/Vol] 8.9 x10*3/uL Normal 4.4-11.3 [facility] Comment on above: Performed By: #### 5 7021-8 ####IRVIN MUNGUIA ([id number])[facility])[address] [place] [address] CT ABDOMEN PELVIS W IV CONTR Reny 06-04-2024 CT ABDOMEN PELVIS W IV CONTRAST Normal [facility] Comprehensive metabolic 2000 panelon 06-04-2024 Albumin BCP dye [Mass/Vol] 4.7 g/dL Normal 3.4-5.0 [facility] Comment on above: Performed By: #### 2 4323-8 ####IRVIN MUNGUIA ([id number])[facility])[address] [place] [address] ALP [Catalytic activity/Vol] 143 U/L High 33-110 [facility] Comment on above: Performed By: #### 2 4323-8 ####IRVIN MUNGUIA ([id number])[facility])[address] [place] [address] 96724 ALT With P-5'-P [Catalytic activity/Vol] 100 U/L High 7-45 [facility] Comment on above: Result Comment: Evelyn ents treated with Sulfasalazine may generate falsely decreased results for ALT. Performed By: #### 2 4323-8 ####IRVIN MUNGUIA ([id number])[facility])[address] [place] [address] 03749 Anion gap [Moles/Vol] 15 mmol/L Normal 10-20 [facility] Comment on above: Performed By: #### 2 4323-8 ####IRVIN MUNGUIA ([id number])[facility])[address] [place] [address] AST With P-5'-P [Catalytic activity/Vol] 62 U/L High 9-39 [facility] Comment on above: Performed By: #### 2 4323-8 ####IRVIN MUNGUIA ([id number])[facility])[address] [place] [address] Bilirubin [Mass/Vol] 0.4 mg/dL Normal 0.0-1.2 [facility] Comment on above: Performed By: #### 2 4322-8 ####IRVIN MUNGUIA ([id number])[facility])[address] [place] [address] 32508 Calcium [Mass/Vol] 9.8 mg/dL Normal 8.6-10.3 [facility] Comment on above: Performed By: #### 2 4322-8 ####IRVIN MUNGUIA ([id number])[facility])[address] [place] [address] 94779 Chloride [Moles/Vol] 100 mmol/L Normal 98-107 [facility] Comment on above: Performed By: #### 2 4322-8 ####IRVIN MUNGUIA ([id number])[facility])[address] [place] [address] CO2 [Moles/Vol] 26 mmol/L Normal 21-32 [facility] Comment on above: Performed By: #### 2 4322-8 ####IRVIN MUNGUIA ([id number])[facility])[address] [place] [address] 27089 Creatinine [Mass/Vol] 0.96 mg/dL Normal 0.50-1.05 [facility] Comment on above: Performed By: #### 2 432-8 ####IRVIN MUNGUIA ([id number])[facility])[address] [place] [address] 11123 Glomerular filtration rate/1.73 sq M.predicted 73 mL/min/1.73m*2 Normal >60 [facility] Comment on above: Result Comment: Calc ulations of estimated GFR are performed using the 2020 CKD-EPI Study Refit equation without the race variable for the IDMS-Traceable creatinine methods.https://jasn.asnjournals.org/content/early/ N.6860847890 Performed By: #### 2 4323-8 ####IRVIN MUNGUIA ([id number])[facility])[address] [place] [address] 58854 Glucose [Mass/Vol] 153 mg/dL High 74-99 [facility] Comment on above: Performed By: #### 2 4323-8 ####IRVIN MUNGUIA ([id number])[facility])[address] [place] [address] 57364 Potassium [Moles/Vol] 3.8 mmol/L Normal 3.5-5.3 [facility] Comment on above: Performed By: #### 2 4323-8 ####IRVIN MUNGUIA ([id number])[facility])[address] [place] [address] 69103 Protein [Mass/Vol] 7.5 g/dL Normal 6.4-8.2 [facility] Comment on above: Performed By: #### 2 4323-8 ####IRVIN MUNGUIA ([id number])[facility])[address] [place] [address] 72473 Sodium [Moles/Vol] 137 mmol/L Normal 136-145 [facility] Comment on above: Performed By: #### 2 4323-8 ####IRVIN MUNGUIA ([id number])[facility])[address] [place] [address] 41672 Urea nitrogen [Mass/Vol] 12 mg/dL Normal 6-23 [facility] Comment on above: Performed By: #### 2 4323-8 ####IRVIN MUNGUIA ([id number])[facility])[address] [place] [address] 34070 Urinalysis complete W Reflex Culture panel (U)on 06-04-2024 Appearance (U) Clear Normal Clear [facility] Comment on above: Performed By: #### 5 8077-9 ####IRVIN MUNGUIA ([id number])[facility])[address] [place] [address] Bilirubin (U) [Mass/Vol] Negative Normal NEGATIVE [facility] Comment on above: Performed By: #### 5 8077-9 ####IRVIN MUNGUIA ([id number])[facility])[address] [place], [place] [id number] Color (U) Light-Yellow Normal Light-Yellow , Yellow, Dark-Yellow [facility] Comment on above: Performed By: #### 5 8077-9 ####IRVIN MUNGUIA ([id number])[facility])[address] [place] [address] Glucose Auto test strip (U) [Mass/Vol] Normal Normal Normal [facility] Comment on above: Performed By: #### 5 8077-9 ####IRVIN MUNGUIA ([id number])[facility])[address] [place] [address] 21729 Ketones (U) [Mass/Vol] Negative Normal NEGATIVE [facility] Comment on above: Performed By: #### 5 8077-9 ####IRVIN MUNGUIA ([id number])[facility])[address] [place] [address] 85140 Leukocyte esterase Auto test strip Ql (U) Negative Normal NEGATIVE [facility] Comment on above: Performed By: #### 5 8077-9 ####IRVIN MUNGUIA ([id number])[facility])[address] [place] [address] 97063 Nitrite Auto test strip Ql (U) Negative Normal NEGATIVE [facility] Comment on above: Performed By: #### 5 8077-9 ####IRVIN MUNGUIA ([id number])[facility])[address] [place] [address] 45810 pH (U) 7.0 [pH] Normal 5.0, 5.5, 6.0, 6.5, 7.0, 7.5, 8.0 [facility] Comment on above: Performed By: #### 5 8077-9 ####IRVIN MUNGUIA ([id number])[facility])[address] [place] [address] Protein (U) [Mass/Vol] Negative Normal NEGATIVE, 10 (TRACE), 20 (TRACE) [facility] Comment on above: Performed By: #### 5 8077-9 ####IRVIN MUNGUIA ([id number])[facility])[address] [place] [address] RBC (U) [#/Vol] Negative Normal NEGATIVE [facility] Comment on above: Performed By: #### 5 8077-9 ####IRVIN MUNGUIA ([id number])[facility])[address] [place] [address] Specific gravity (U) [Rel density] 1.012 Normal 1.005-1.035 [facility] Comment on above: Performed By: #### 5 8077-9 ####IRVIN MUNGUIA ([id number])[facility])[address] [place] [address] Urobilinogen (U) [Mass/Vol] Normal Normal Normal [facility] Comment on above: Performed By: #### 5 8077-9 ####IRVIN MUNGUIA ([id number])[facility])[address] [place] [address] CNOVon 05-31-2024 CNOV Office Visit (OBGYWM ) DOROTHEA RUTLEDGE ([id number]) 1975 F Date Time Provider Department 05/31/24 3:20 PM LYNN MAIER OBJOHNNIEWAbdoulaye During your visit today, we recorded the following information about you: Blood pressure Weight 124/82 104.8 kg Lynn Maier MD 05/31/2024 3:36 PM Signed The sensitive examination was discussed with the Patient or Patient's Authorized Franchise Manager. As applicable, any other physician, advance practice provider, medical student, or other health professional student that will be observing or involved in the sensitive examination for educational or training purposes was discussed with the Patient or Authorized Franchise Manager. The Patient or Authorized Franchise Manager has agreed to proceed with the sensitive examination. (Sensitive examination includes inspection and/or palpation of the breasts, pelvis, prostate and anorectal regions) Stockholder offered: Patient declines. Dorothea Rutledge is a [...] OB History No obstetric history on file. 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 Normal [facility] SURGICAL PATHOLOGYon 024 CASE REPORT Normal [facility] Comment on above: Order Comment: Speci men Type: TISSUE SPECIMEN Ordering Facility: [facility] Address: [address] [place] [address] Result Comment: Surg ical Pathology Report Case: [id number] Authorizing Provider: Lynn Maier MD Collected: 05/31/2024 03:32 PM Ordering Location: OB/Gynecology Received: 05/31/2024 04:52 PM Pathologist: Theodore Salazar MD Specimen: Perineum, Biopsy Performed By: #### S #### [facility] CLIA [id number] [address] [place] [address] [place] [facility] CLIA [id number] [address] [place] [address] [place] CLINICAL HISTORY bleeding skin tag Normal [facility] Comment on above: Order Comment: Speci men Type: TISSUE SPECIMEN Ordering Facility: [facility] Address: [address] [place] [address] Performed By: #### S #### [facility] CLIA [id number] [address] [place] [address] [place] [facility] CLIA [id number] [address] [place] [address] OF [facility] FINAL DIAGNOSIS Normal [facility] Comment on above: Order Comment: Speci men Type: TISSUE SPECIMEN Ordering Facility: [facility] Address: [address] [place] [address] Result Comment: Jane neum, excision: - Intradermal nevus. MJM 06/04/2024 Performed By: #### S #### [facility] CLIA [id number] [address] [place] [address] [place] [facility] CLIA [id number] [address] [place] [address] [place] [facility] Normal [facility] Comment on above: Order Comment: Speci men Type: TISSUE SPECIMEN Ordering Facility: [facility] Address: [address] [place] [address] Result Comment: Diag nostic interpretation performed at [facility], [address] [place] [address] CLIA# [id number] Grounds Worker: Theodore Salazar M.D. Performed By: #### S #### [facility] CLIA [id number] [address] [place] [address] [place] [facility] CLIA [id number] [address] [place] [address] [place] GROSS DESCRIPTION Normal [facility] Comment on above: Order Comment: Speci men Type: TISSUE SPECIMEN Ordering Facility: [facility] Address: [address] [place] [address] Result Comment: A. P erineum, Biopsy Received in formalin is a segment of duron wrinkled rubbery skin measuring 0.9 x 0.4 x 0.5 cm. The specimen is bisected. Totally submitted in one cassette. Gross examination performed at [facility], [address] [place] [address] FFS 06/01/2024 1:56 AM Performed By: #### S #### [facility] CLIA [id number] [address] [place] [address] [place] [facility] CLIA [id number] [address] [place] [address] [place] CBC W Auto Differential pane l (Bld)on 05-30-2024 Basophils (Bld) [#/Vol] 0.05 x10*3/uL Normal 0.00-0.10 [facility] Comment on above: Performed By: #### 5 7021-8 #### [facility]VAR[facility] CR[facility] ([id number]) [facility] ([facility]) [address] [place] [address] Basophils/100 WBC (Bld) 0.6 % Normal 0.0-2.0 [facility] Comment on above: Performed By: #### 5 7021-8 #### ALVARO CROUCH ([id number]) [facility] ([facility]) [address] [place] [address] Eosinophils (Bld) [#/Vol] 0.15 x10*3/uL Normal 0.00-0.70 [facility] Comment on above: Performed By: #### 5 7021-8 #### ALVARO CROUCH ([id number]) [facility] ([facility]) [address] [place] [address] Eosinophils/100 WBC (Bld) 1.8 % Normal 0.0-6.0 [facility] Comment on above: Performed By: #### 5 7021-8 #### ALVARO CROUCH ([id number]) [facility] ([facility]) [address] [place] [address] Erythrocyte distribution width (RBC) [Ratio] 15.8 % High 11.5-14.5 [facility] Comment on above: Performed By: #### 5 7021-8 #### ALVARO CROUCH ([id number]) [facility] ([facility]) [address] [place] [address] Hematocrit (Bld) [Volume fraction] 40.2 % Normal 36.0-46.0 [facility] Comment on above: Performed By: #### 5 7021-8 #### ALVARO CROUCH ([id number]) [facility] ([facility]) [address] [place] [address] Hemoglobin (Bld) [Mass/Vol] 12.6 g/dL Normal 12.0-16.0 [facility] Comment on above: Performed By: #### 5 7021-8 #### ALVARO CROUCH ([id number]) [facility] ([facility]) [address] [place] [address] Immature granulocytes (Bld) [#/Vol] 0.08 x10*3/uL Normal 0.00-0.70 [facility] Comment on above: Performed By: #### 5 7021-8 #### ALVARO CROUCH ([id number]) [facility] ([facility]) [address] [place] [address] Immature granulocytes/100 WBC (Bld) 1.0 % High 0.0-0.9 [facility] Comment on above: Result Comment: Debbie ture Granulocyte Count (IG) includes promyelocytes, myelocytes and metamyelocytes but does not include bands. Percent differential counts (%) should be interpreted in the context of the absolute cell counts (cells/UL). Performed By: #### 5 7021-8 #### ALVARO CROUCH ([id number]) [facility] ([facility]) [address] [place] [address] Lymphocytes (Bld) [#/Vol] 1.96 x10*3/uL Normal 1.20-4.80 [facility] Comment on above: Performed By: #### 5 7021-8 #### ALVARO CROUCH ([id number]) [facility] ([facility]) [address] [place] [address] Lymphocytes/100 WBC (Bld) 23.8 % Normal 13.0-44.0 [facility] Comment on above: Performed By: #### 5 7021-8 #### ALVARO CROUCH ([id number]) [facility] ([facility]) [address] [place] [address] MCH (RBC) [Entitic mass] 26.9 pg Normal 26.0-34.0 [facility] Comment on above: Performed By: #### 5 7021-8 #### ALVARO CROUCH ([id number]) [facility] ([facility]) [address] [facility] [address] MCHC (RBC) [Mass/Vol] 31.3 g/dL Low 32.0-36.0 [facility] Comment on above: Performed By: #### 5 7021-8 #### ALVARO CROUCH ([id number]) [facility] ([facility]) [address] [place] [address] MCV (RBC) [Entitic vol] 86 fL Normal 80-100 [facility] Comment on above: Performed By: #### 5 7021-8 #### ALVARO CROUCH ([id number]) [facility] ([facility]) [address] [place] [address] Monocytes (Bld) [#/Vol] 0.43 x10*3/uL Normal 0.10-1.00 [facility] Comment on above: Performed By: #### 5 7021-8 #### ALVARO CROUCH ([id number]) [facility] ([facility]) [address] [place] [address] Monocytes/100 WBC (Bld) 5.2 % Normal 2.0-10.0 [facility] Comment on above: Performed By: #### 5 7021-8 #### ALVARO CROUCH ([id number]) [facility] ([facility]) [address] [place] [address] Neutrophils (Bld) [#/Vol] 5.56 x10*3/uL Normal 1.20-7.70 [facility] Comment on above: Result Comment: Perc ent differential counts (%) should be interpreted in the context of the absolute cell counts (cells/uL). Performed By: #### 5 7021-8 #### ALVARO CROUCH ([id number]) [facility] ([facility]) [address] [facility] [address] Neutrophils/100 WBC (Bld) 67.6 % Normal 40.0-80.0 [facility] Comment on above: Performed By: #### 5 7021-8 #### ALVARO CROUCH ([id number]) [facility] ([facility]) [address] [place] [address] Nucleated RBC/100 WBC (Bld) [Ratio] 0.0 /100 WBCs Normal 0.0-0.0 [facility] Comment on above: Performed By: #### 5 7021-8 #### ALVARO CROUCH ([id number]) [facility] ([facility]) [address] [place] [address] Platelets (Bld) [#/Vol] 293 x10*3/uL Normal 150-450 [facility] Comment on above: Performed By: #### 5 7021-8 #### ALVARO CROUCH ([id number]) [facility] ([facility]) [address] [place] [address] RBC (Bld) [#/Vol] 4.69 x10*6/uL Normal 4.00-5.20 [facility] Comment on above: Performed By: #### 5 7021-8 #### ALVARO PERRINFRI ([id number]) [facility] ([facility]) [address] [place] [address] WBC (Bld) [#/Vol] 8.2 x10*3/uL Normal 4.4-11.3 [facility] Comment on above: Performed By: #### 5 7021-8 #### ALVARO CROUCH ([id number]) [facility] ([facility]) [address] [place] [address] CT ABDOMEN PELVIS W IV CONTR Reny 05-30-2024 CT ABDOMEN PELVIS W IV CONTRAST STUDY: CT Angiogram of the Chest, CT Abdomen and Pelvis with IV Contrast; 05/30/2024, 1520 INDICATION: Sudden onset of left sided abdominal pain radiating around to back with nausea. COMPARISON: XR chest 05/30/2024, CT abd 05/15/2024, 04/12/2024, CTA chest 02/27/2024. ACCESSION NUMBER(S): [id number], [id number] ORDERING CLINICIAN: SARAH HO TECHNIQUE: CTA of [...] the liver. Signed by Richard Hardy MD [facility] CT ANGIO CHEST FOR PULMONARY EMBOLISMon 05-30-2024 CT ANGIO CHEST FOR PULMONARY EMBOLISM STUDY: CT Angiogram of the Chest, CT Abdomen and Pelvis with IV Contrast; 05/30/2024, 1520 INDICATION: Sudden onset of left sided abdominal pain radiating around to back with nausea. COMPARISON: XR chest 05/30/2024, CT abd 05/15/2024, 04/12/2024, CTA chest 02/27/2024. ACCESSION NUMBER(S): [id number], [id number] ORDERING CLINICIAN: SARAH HO TECHNIQUE: CTA of [...] the liver. Signed by Richard Hardy MD Normal [facility] Coagulation tissue factor in ducedon 05-30-2024 PT Coag (PPP) [Time] 23.1 s High 9.8-12.8 [facility] Comment on above: Performed By: #### 5 902-2 #### ALVAR[facility] CR[facility]CH ([id number]) [facility] ([facility]) [address] [place] [address] Comprehensive metabolic 2000 panelon 05-30-2024 Albumin BCP dye [Mass/Vol] 4.3 g/dL Normal 3.4-5.0 [facility] Comment on above: Performed By: #### 5 7021-8 #### ALVARO CROUCH ([id number]) [facility] ([facility]) [address] [place] [address] ALP [Catalytic activity/Vol] 121 U/L High 33-110 [facility] Comment on above: Performed By: #### 5 7021-8 #### ALVARO CROUCH ([id number]) [facility] ([facility]) [address] [place] [address] ALT With P-5'-P [Catalytic activity/Vol] 86 U/L High 7-45 [facility] Comment on above: Result Comment: Evelyn ents treated with Sulfasalazine may generate falsely decreased results for ALT. Performed By: #### 5 7021-8 #### ALVARO CROUCH ([id number]) [facility] ([facility]) [address] [place] [address] Anion gap [Moles/Vol] 17 mmol/L Normal 10-20 [facility] Comment on above: Performed By: #### 5 7021-8 #### ALVARO CROUCH ([id number]) [facility] ([facility]) [address] [place] [address] AST With P-5'-P [Catalytic activity/Vol] 53 U/L High 9-39 [facility] Comment on above: Performed By: #### 5 7021-8 #### ALVAR[facility] CR[facility] ([id number]) [facility] ([facility]) [address] [place] [address] Bilirubin [Mass/Vol] 0.3 mg/dL Normal 0.0-1.2 [facility] Comment on above: Performed By: #### 5 7021-8 #### ALVAR[facility] CR[facility] ([id number]) [facility] ([facility]) [address] [place] [address] Calcium [Mass/Vol] 9.5 mg/dL Normal 8.6-10.3 [facility] Comment on above: Performed By: #### 5 7021-8 #### ALVARO CROUCH ([id number]) [facility] ([facility]) [address] [place] [address] Chloride [Moles/Vol] 98 mmol/L Normal 98-107 [facility] Comment on above: Performed By: #### 5 7021-8 #### ALVARO PERRINFRI ([id number]) [facility] ([facility]) [address] [place] [address] CO2 [Moles/Vol] 25 mmol/L Normal 21-32 [facility] Comment on above: Performed By: #### 5 7021-8 #### ALVARO CROUCH ([id number]) [facility] ([facility]) [address] [place] [address] Creatinine [Mass/Vol] 0.84 mg/dL Normal 0.50-1.05 [facility] Comment on above: Performed By: #### 5 7021-8 #### ALVARO CROUCH ([id number]) [facility] ([facility]) [address] [place] [address] Glomerular filtration rate/1.73 sq M.predicted 85 mL/min/1.73m*2 Normal >60 [facility] Comment on above: Result Comment: Calc ulations of estimated GFR are performed using the 2020 CKD-EPI Study Refit equation without the race variable for the IDMS-Traceable creatinine methods. https://jasn.asnjournals.org/content/early/ASN.486773 2531 Performed By: #### 5 7021-8 #### ALVARO CROUCH ([id number]) [facility] ([facility]) [address] [place] [address] Glucose [Mass/Vol] 174 mg/dL High 74-99 [facility] Comment on above: Performed By: #### 5 7021-8 #### ALVARO CROUCH ([id number]) [facility] ([facility]) [address] [place] [address] Potassium [Moles/Vol] 3.8 mmol/L Normal 3.5-5.3 [facility] Comment on above: Performed By: #### 5 7021-8 #### ALVARO CROUCH ([id number]) [facility] ([facility]) [address] [place] [address] Protein [Mass/Vol] 7.6 g/dL Normal 6.4-8.2 [facility] Comment on above: Performed By: #### 5 7021-8 #### ALVARO CROUCH ([id number]) [facility] ([facility]) [address] [place] [address] Sodium [Moles/Vol] 136 mmol/L Normal 136-145 [facility] Comment on above: Performed By: #### 5 7021-8 #### ALVARO CROUCH ([id number]) [facility] ([facility]) [address] [place] [address] Urea nitrogen [Mass/Vol] 22 mg/dL Normal 6-23 [facility] Comment on above: Performed By: #### 5 7021-8 #### ALVARO CROUCH ([id number]) [facility] ([facility]) [address] [place] [address] ECG 12-LEADon 05-30-2024 ECG 12-LEAD Ventricular Rate 78 Atrial Rate 78 P-R Interval 154 QRS Duration 90 Q-T Interval 410 QTC Calculation(Bazett) 467 P [place] 15 R [place] 29 T [place] 35 QRS Count 13 Q Onset 223 P Onset 146 P Offset 199 T Offset 428 QTC Fredericia 447 Diagnosis Normal sinus rhythm Normal ECG When compared with ECG of 17-MAR-2024 16:07, No significant change was found See ED provider note for full interpretation and clinical correlation Confirmed by Hemalatha Lange ([id number]) on 06/07/2024 11:29:01 AM Normal [facility] Natriuretic peptide B [Mass/ Vol]on 05-30-2024 Natriuretic peptide B (Bld) [Mass/Vol] 14 pg/mL Normal 0-99 [facility] Comment on above: Order Comment: <100 pg/mL - Heart failure unlikely 100-299 pg/mL - Intermediate probability of acute heart failure exacerbation. Correlate with clinical context and patient history. >=300 pg/mL - Heart Failure likely. Correlate with clinical context and patient history. BNP testing is performed using different testing methodology at [facility] than at other [facility] [place] [facility]. Direct result comparisons should only be made within the same method. Performed By: #### 3 0934-4 #### ALVARO CROUCH ([id number]) [facility] ([facility]) [address] [place] [address] PT Coag (PPP) [Time]on 05-30 INR Coag (PPP) [Relative time] 2.0 High 0.9-1.1 [facility] Comment on above: Performed By: #### 5 902-2 #### ALVARO CROUCH ([id number]) [facility] ([facility]) [address] [place] [address] Triacylglycerol lipaseon Lipase [Catalytic activity/Vol] 61 U/L Normal 9-82 [facility] Comment on above: Order Comment: Venip uncture immediately after or during the administration of Metamizole may lead to falsely low results. Testing should be performed immediately prior to Metamizole dosing. Performed By: #### 5 7021-8 #### ALVARO CROUCH ([id number]) [facility] ([facility]) [address] [place] [address] Troponin I.cardiac panelon 0 05-30-2024 Tropinin I.cardiac panel High sensitivity method <3 Normal 0-13 [facility] Comment on above: Order Comment: Less than [...] is performed using a differenttesting methodology at [facility] Direct result comparisons should onlybe made within the same method. Performed By: #### 5 7021-8 #### ALVARO CROUCH ([id number]) [facility] ([facility]) [address] [place] [address] Urinalysis complete W Reflex Culture panel (U)on 05-30-2024 Appearance (U) Clear Normal Clear [facility] Comment on above: Performed By: #### 5 8077-9 #### ALVARO CROUCH ([id number]) [facility] ([facility]) [address] [place] [address] Bilirubin (U) [Mass/Vol] Negative Normal NEGATIVE [facility] Comment on above: Performed By: #### 5 8077-9 #### ALVARO CROUCH ([id number]) [facility] ([facility]) [address] [place] [address] Color (U) Yellow Normal Light-Yellow , Yellow, Dark-Yellow [facility] Comment on above: Performed By: #### 5 8077-9 #### ALVARO CROUCH ([id number]) [facility] ([facility]) [address] [place] [address] Glucose Auto test strip (U) [Mass/Vol] Normal Normal Normal [facility] Comment on above: Performed By: #### 5 8077-9 #### ALVARO CROUCH ([id number]) [facility] ([facility]) [address] [place] [address] Ketones (U) [Mass/Vol] Negative Normal NEGATIVE [facility] Comment on above: Performed By: #### 5 8077-9 #### ALVARO CROUCH ([id number]) [facility] ([facility]) [address] [place] [address] Leukocyte esterase Auto test strip Ql (U) Negative Normal NEGATIVE [facility] Comment on above: Performed By: #### 5 8077-9 #### ALVARO CROUCH ([id number]) [facility] ([facility]) [address] [place] [address] Nitrite Auto test strip Ql (U) Negative Normal NEGATIVE [facility] Comment on above: Performed By: #### 5 8077-9 #### ALVARO CROUCH ([id number]) [facility] ([facility]) [address] [place] [address] pH (U) 5.5 [pH] Normal 5.0, 5.5, 6.0, 6.5, 7.0, 7.5, 8.0 [facility] Comment on above: Performed By: #### 5 8077-9 #### ALVARO CROUCH ([id number]) [facility] ([facility]) [address] [place] [address] Protein (U) [Mass/Vol] Negative Normal NEGATIVE, 10 (TRACE), 20 (TRACE) [facility] Comment on above: Performed By: #### 5 8077-9 #### ALVARO CROUCH ([id number]) [facility] ([facility]) [address] [place] [address] RBC (U) [#/Vol] Negative Normal NEGATIVE [facility] Comment on above: Performed By: #### 5 8077-9 #### ALVARO CROUCH ([id number]) [facility] ([facility]) [address] [place] [address] Specific gravity (U) [Rel density] 1.015 Normal 1.005-1.035 [facility] Comment on above: Performed By: #### 5 8077-9 #### ALVARO CROUCH ([id number]) [facility] ([facility]) [address] [place] [address] Urobilinogen (U) [Mass/Vol] Normal Normal Normal [facility] Comment on above: Performed By: #### 5 8077-9 #### ALVARO CROUCH ([id number]) [facility] ([facility]) [address] [place] [address] XR CHEST 2 VIEWSon XR CHEST 2 VIEWS STUDY: Chest Radiographs; 05/30/2024 2:15 PM INDICATION: Shortness of breath. COMPARISON: XR chest 05/15/2024 ACCESSION NUMBER(S): [id number] ORDERING CLINICIAN: SARAH HO TECHNIQUE: Frontal and lateral chest. FINDINGS: CARDIOMEDIASTINAL SILHOUETTE: Cardiomediastinal silhouette is normal in size and configuration. LUNGS: Lungs are clear. Right chest port ABDOMEN: [place] IVC filter. BONES: Old right seventh and eighth rib fractures. IMPRESSION: No regions of airspace consolidation. Signed by Theodore Fournier MD Normal [facility] Bacteria identifiedon 2023 Bacteria identified Cx Nom (U) Abnormal [facility] Comment on above: Performed By: #### 6 30-4 ####ANDI Cotter ([id number])[facility] ([facility])[id number] [place] [address] CBC W Auto Differential pane l (Bld)on 05-28-2024 Basophils (Bld) [#/Vol] 0.06 x10*3/uL Normal 0.00-0.10 [facility] Comment on above: Order Comment: [place] EDTA Performed By: #### 5 7021-8 ####IRVIN MUNGUIA ([id number])[facility] ([facility])[address] [place] [address] 80339 Basophils/100 WBC (Bld) 0.8 % Normal 0.0-2.0 [facility] Comment on above: Order Comment: [place] EDTA Performed By: #### 5 7021-8 ####IRVIN MUNGUIA ([id number])[facility] ([facility])[address] [place] [address] 31225 Eosinophils (Bld) [#/Vol] 0.13 x10*3/uL Normal 0.00-0.70 [facility] Comment on above: Order Comment: [place] EDTA Performed By: #### 5 7021-8 ####IRVIN MUNGUIA ([id number])[facility] ([facility])[address] [place] [address] 14972 Eosinophils/100 WBC (Bld) 1.7 % Normal 0.0-6.0 [facility] Comment on above: Order Comment: [place] EDTA Performed By: #### 5 7021-8 ####IRVIN MUNGUIA ([id number])[facility] ([facility])[address] [place] [address] 09731 Erythrocyte distribution width (RBC) [Ratio] 15.4 % High 11.5-14.5 [facility] Comment on above: Order Comment: [place] EDTA Performed By: #### 5 7021-8 ####IRVIN MUNGUIA ([id number])[facility] ([facility])[address] [place] [address]5800 Hematocrit (Bld) [Volume fraction] 40.4 % Normal 36.0-46.0 [facility] Comment on above: Order Comment: [place] EDTA Performed By: #### 5 7021-8 ####IRVIN MUNGUIA ([id number])[facility] ([facility])[address] [place] [address] 43889 Hemoglobin (Bld) [Mass/Vol] 12.7 g/dL Normal 12.0-16.0 [facility] Comment on above: Order Comment: [place] EDTA Performed By: #### 5 7021-8 ####IRVIN MUNGUIA ([id number])[facility] ([facility])[address] [place] [address] 19816 Immature granulocytes (Bld) [#/Vol] 0.05 x10*3/uL Normal 0.00-0.70 [facility] Comment on above: Order Comment: [place] EDTA Performed By: #### 5 7021-8 ####IRVIN MUNGUIA ([id number])[facility] ([facility])[address] [place] [address] 71214 Immature granulocytes/100 WBC (Bld) 0.6 % Normal 0.0-0.9 [facility] Comment on above: Order Comment: [place] EDTA Result Comment: Debbie ture Granulocyte Count (IG) includes promyelocytes, myelocytes and metamyelocytes but does not include bands. Percent differential counts (%) should be interpreted in the context of the absolute cell counts (cells/UL). Performed By: #### 5 7021-8 ####IRVIN MUNGUIA ([id number])[facility] ([facility])[address] [place] [address] 63593 Lymphocytes (Bld) [#/Vol] 1.96 x10*3/uL Normal 1.20-4.80 [facility] Comment on above: Order Comment: [place] EDTA Performed By: #### 5 7021-8 ####IRVIN MUNGUIA ([id number])[facility] ([facility])[address] [place] [address] 85414 Lymphocytes/100 WBC (Bld) 25.4 % Normal 13.0-44.0 [facility] Comment on above: Order Comment: [place] EDTA Performed By: #### 5 7021-8 ####IRVIN MUNGUIA ([id number])[facility] ([facility])[address] [place] [address] 55920 MCH (RBC) [Entitic mass] 26.8 pg Normal 26.0-34.0 [facility] Comment on above: Order Comment: [place] EDTA Performed By: #### 5 7021-8 ####IRVIN MUNGUIA ([id number])[facility] ([facility])[address] [place] [address] 41072 MCHC (RBC) [Mass/Vol] 31.4 g/dL Low 32.0-36.0 [facility] Comment on above: Order Comment: [place] EDTA Performed By: #### 5 7021-8 ####IRVIN MUNGUIA ([id number])[facility] ([facility])[address] [place] [address] 48526 MCV (RBC) [Entitic vol] 85 fL Normal 80-100 [facility] Comment on above: Order Comment: [place] EDTA Performed By: #### 5 7021-8 ####IRVIN MUNGUIA ([id number])[facility] ([facility])[address] [place] [address] 31191 Monocytes (Bld) [#/Vol] 0.39 x10*3/uL Normal 0.10-1.00 [facility] Comment on above: Order Comment: [place] EDTA Performed By: #### 5 7021-8 ####IRVIN MUNGUIA ([id number])[facility] ([facility])[address] [place] [address] 47395 Monocytes/100 WBC (Bld) 5.0 % Normal 2.0-10.0 [facility] Comment on above: Order Comment: [place] EDTA Performed By: #### 5 7021-8 ####IRVIN MUNGUIA ([id number])[facility])[address] [place] [address] 70929 Neutrophils (Bld) [#/Vol] 5.14 x10*3/uL Normal 1.20-7.70 [facility] Comment on above: Order Comment: [place] che[place] EDTA Result Comment: Perc ent differential counts (%) should be interpreted in the context of the absolute cell counts (cells/uL). Performed By: #### 5 7021-8 ####IRVIN MUNGUIA ([id number])[facility] ([facility])[address] [place] [address] 78202 Neutrophils/100 WBC (Bld) 66.5 % Normal 40.0-80.0 [facility] Comment on above: Order Comment: [place] EDTA Performed By: #### 5 7021-8 ####IRVIN MUNGUIA ([id number])[facility] ([facility])[address] [place] [address] 88409 Nucleated RBC/100 WBC (Bld) [Ratio] 0.0 /100 WBCs Normal 0.0-0.0 [facility] Comment on above: Order Comment: [place] EDTA Performed By: #### 5 7021-8 ####IRVIN MUNGUIA ([id number])[facility])[address] [place] [address] 48923 Platelets (Bld) [#/Vol] 311 x10*3/uL Normal 150-450 [facility] Comment on above: Order Comment: [place] EDTA Performed By: #### 5 7021-8 ####IRVIN MUNGUIA ([id number])[facility])[address] [place] [address] 35563 RBC (Bld) [#/Vol] 4.74 x10*6/uL Normal 4.00-5.20 [facility] Comment on above: Order Comment: [place] EDTA Performed By: #### 5 7021-8 ####IRVIN MUNGUIA ([id number])[facility])[address] [place] [address] WBC (Bld) [#/Vol] 7.7 x10*3/uL Normal 4.4-11.3 [facility] Comment on above: Order Comment: [place] EDTA Performed By: #### 5 7021-8 ####IRVIN MUNGUIA ([id number])[facility])[address] [place] [address] CT ABDOMEN PELVIS W IV CONTR Reny 05-28-2024 CT ABDOMEN PELVIS W IV CONTRAST Normal [facility] Comprehensive metabolic 2000 panelon 05-28-2024 Albumin BCP dye [Mass/Vol] 4.5 g/dL Normal 3.4-5.0 [facility] Comment on above: Order Comment: Plasm a Serum Separator Performed By: #### 2 4323-8 ####IRVIN MUNGUIA ([id number])[facility])[address] [place] [address] ALP [Catalytic activity/Vol] 124 U/L High 33-110 [facility] Comment on above: Order Comment: Plasm a Serum Separator Performed By: #### 2 4323-8 ####IRVIN MUNGUIA ([id number])[facility])[address] [place] [address] ALT With P-5'-P [Catalytic activity/Vol] 71 U/L High 7-45 [facility] Comment on above: Order Comment: Plasm a Serum Separator Result Comment: Evelyn ents treated with Sulfasalazine may generate falsely decreased results for ALT. Performed By: #### 2 4323-8 ####IRVIN MUNGUIA ([id number])[facility])[address] [place] [address] Anion gap [Moles/Vol] 15 mmol/L Normal 10-20 [facility] Comment on above: Order Comment: Plasm a Serum Separator Performed By: #### 2 4323-8 ####IRVIN MUNGUIA ([id number])[facility])[address] [place] [address] AST With P-5'-P [Catalytic activity/Vol] 35 U/L Normal 9-39 [facility] Comment on above: Order Comment: Plasm a Serum Separator Performed By: #### 2 4323-8 ####IRVIN MUNGUIA ([id number])[facility] ([facility])[address] [place] [address] 10998 Bilirubin [Mass/Vol] 0.3 mg/dL Normal 0.0-1.2 [facility] Comment on above: Order Comment: Plasm a Serum Separator Performed By: #### 2 4323-8 ####IRVIN MUNGUIA ([id number])[facility])[address] [place] [address] 71493 Calcium [Mass/Vol] 9.3 mg/dL Normal 8.6-10.3 [facility] Comment on above: Order Comment: Plasm a Serum Separator Performed By: #### 2 4323-8 ####IRVIN MUNGUIA ([id number])[facility])[address] [place] [address] 09431 Chloride [Moles/Vol] 97 mmol/L Low 98-107 [facility] Comment on above: Order Comment: Plasm a Serum Separator Performed By: #### 2 4323-8 ####IRVIN MUNGUIA ([id number])[facility])[address] [place] [address] 12776 CO2 [Moles/Vol] 25 mmol/L Normal 21-32 [facility] Comment on above: Order Comment: Plasm a Serum Separator Performed By: #### 2 4323-8 ####IRVIN MUNGUIA ([id number])[facility])[address] [place] [address] 50353 Creatinine [Mass/Vol] 0.99 mg/dL Normal 0.50-1.05 [facility] Comment on above: Order Comment: Plasm a Serum Separator Performed By: #### 2 4323-8 ####IRVIN MUNGUIA ([id number])[facility])[address] [place] [address] 40571 Glomerular filtration rate/1.73 sq M.predicted 70 mL/min/1.73m*2 Normal >60 [facility] Comment on above: Order Comment: Plasm a Serum Separator Result Comment: Calc ulations of estimated GFR are performed using the 2020 CKD-EPI Study Refit equation without the race variable for the IDMS-Traceable creatinine methods.https://jasn.asnjournals.org/content/early/ N.2470859027 Performed By: #### 2 4323-8 ####IRVIN MUNGUIA ([id number])[facility])[address] [place] [address] 52405 Glucose [Mass/Vol] 334 mg/dL High 74-99 [facility] Comment on above: Order Comment: Plasm a Serum Separator Performed By: #### 2 4323-8 ####IRVIN MUNGUIA ([id number])[facility])[address] [place] [address] 98781 Potassium [Moles/Vol] 4.0 mmol/L Normal 3.5-5.3 [facility] Comment on above: Order Comment: Plasm a Serum Separator Performed By: #### 2 4323-8 ####IRVIN MUNGUIA ([id number])[facility])[address] [place] [address] 80156 Protein [Mass/Vol] 7.3 g/dL Normal 6.4-8.2 [facility] Comment on above: Order Comment: Plasm a Serum Separator Performed By: #### 2 4323-8 ####IRVIN MUNGUIA ([id number])[facility])[address] [place] [address] 60093 Sodium [Moles/Vol] 133 mmol/L Low 136-145 [facility] Comment on above: Order Comment: Plasm a Serum Separator Performed By: #### 2 4323-8 ####IRVIN MUNGUIA ([id number])[facility])[address] [place] [address] 06344 Urea nitrogen [Mass/Vol] 18 mg/dL Normal 6-23 [facility] Comment on above: Order Comment: Plasm a Serum Separator Performed By: #### 2 4323-8 ####IRVIN MUNGUIA ([id number])[facility])[address] [place] [address] 15740 Glucose Test strip manual (B ld) [Mass/Vol]on 05-28-2024 Glucose [Mass/Vol] 311 mg/dL High 74-99 [facility] Comment on above: Performed By: #### 2 341-6 ####IRVIN MUNGUIA ([id number])[facility])[address] [place] [address] 00423 Urinalysis complete W Reflex Culture panel (U)on 05-28-2024 Appearance (U) Clear Normal Clear [facility] Comment on above: Order Comment: OVER is reported when the result is greater than the clinically reportable range. Performed By: #### 5 8077-9 ####IRVIN MUNGUIA ([id number])[facility])[address] [place] [address] 54125 Bilirubin (U) [Mass/Vol] Negative Normal NEGATIVE [facility] Comment on above: Order Comment: OVER is reported when the result is greater than the clinically reportable range. Performed By: #### 5 8077-9 ####IRVIN MUNGUIA ([id number])[facility])[address] [place] [address] 05894 Color (U) Yellow Normal Light-Yellow , Yellow, Dark-Yellow [facility] Comment on above: Order Comment: OVER is reported when the result is greater than the clinically reportable range. Performed By: #### 5 8077-9 ####IRVIN MUNGUIA ([id number])[facility])[address] [place] [address] 11307 Glucose Auto test strip (U) [Mass/Vol] OVER (4+) Abnormal Normal [facility] Comment on above: Order Comment: OVER is reported when the result is greater than the clinically reportable range. Performed By: #### 5 8077-9 ####IRVIN MUNGUIA ([id number])[facility])[address] [place] [address] 72899 Ketones (U) [Mass/Vol] Negative Normal NEGATIVE [facility] Comment on above: Order Comment: OVER is reported when the result is greater than the clinically reportable range. Performed By: #### 5 8077-9 ####IRVIN MUNGUIA ([id number])[facility])[address] [place] [address] 30106 Leukocyte esterase Auto test strip Ql (U) 250 Deborah/???L Abnormal NEGATIVE [facility] Comment on above: Order Comment: OVER is reported when the result is greater than the clinically reportable range. Performed By: #### 5 8077-9 ####IRVIN MUNGUIA ([id number])[facility])[address] [place] [address] Nitrite Auto test strip Ql (U) Negative Normal NEGATIVE [facility] Comment on above: Order Comment: OVER is reported when the result is greater than the clinically reportable range. Performed By: #### 5 8077-9 ####IRVIN MUNGUIA ([id number])[facility])[address] [place], [place] [id number] pH (U) 6.5 [pH] Normal 5.0, 5.5, 6.0, 6.5, 7.0, 7.5, 8.0 [facility] Comment on above: Order Comment: OVER is reported when the result is greater than the clinically reportable range. Performed By: #### 5 8077-9 ####IRVIN MUNGUIA ([id number])[facility])[address] [place] [address] 68566 Protein (U) [Mass/Vol] Negative Normal NEGATIVE, 10 (TRACE), 20 (TRACE) [facility] Comment on above: Order Comment: OVER is reported when the result is greater than the clinically reportable range. Performed By: #### 5 8077-9 ####IRVIN MUNGUIA ([id number])[facility])[address] [place] [address] RBC (U) [#/Vol] 0.03 (TRACE) Abnormal NEGATIVE [facility] Comment on above: Order Comment: OVER is reported when the result is greater than the clinically reportable range. Performed By: #### 5 8077-9 ####IRVIN MUNGUIA ([id number])[facility])[address] [place] [address] Specific gravity (U) [Rel density] 1.015 Normal 1.005-1.035 [facility] Comment on above: Order Comment: OVER is reported when the result is greater than the clinically reportable range. Performed By: #### 5 8077-9 ####IRVIN MUNGUIA ([id number])[facility])[address] [place] [address] Urobilinogen (U) [Mass/Vol] Normal Normal Normal [facility] Comment on above: Order Comment: OVER is reported when the result is greater than the clinically reportable range. Performed By: #### 5 8077-9 ####IRVIN MUNGUIA ([id number])[facility])[address] [place] [address] Urinalysis microscopic panel Auto Ql (U)on 05-28-2024 Bacteria Auto (Urine sed) [#/Area] 1+ /HPF Abnormal NONE SEEN [facility] Comment on above: Performed By: #### 5 3315-8 ####IRVIN MUNGUIA ([id number])[facility])[address] [place], [place] [id number] Epithelial cells.squamous Auto (Urine sed) [#/Area] 1-9 (SPARSE) Normal Reference range not established. [facility] Comment on above: Performed By: #### 5 3315-8 ####IRVIN MUNGUIA ([id number])[facility])[address] [place], [place] [id number] Leukocyte clumps Auto (Urine sed) [#/Area] RARE Normal Reference range not established. [facility] Comment on above: Performed By: #### 5 3315-8 ####IRVIN MUNGUIA ([id number])[facility])[address] [place] [id number] Mucus Auto (Urine sed) [#/Area] FEW Normal Reference range not established. [facility] Comment on above: Performed By: #### 5 3315-8 ####IRVIN MUNGUIA ([id number])[facility])[address] [place] [address] [id number] RBC Auto (Urine sed) [#/Area] >20 Abnormal NONE, 1-2, 3-5 [facility] Comment on above: Performed By: #### 5 3315-8 ####IRVIN MUNGUIA ([id number])[facility])[address] [place] [address] 26338 WBC Auto (Urine sed) [#/Area] 21-50 Abnormal 1-5, NONE [facility] Comment on above: Performed By: #### 5 3315-8 ####IRVIN MUNGUIA ([id number])[facility])[address] [place] [address] 48242 Beta hydroxybutyrate [Mass o r moles/Vol]on 05-15-2024 Beta hydroxybutyrate [Moles/Vol] 0.27 mmol/L Normal 0.02-0.27 [facility] Comment on above: Order Comment: The b eta-hydroxybutyrate test performance characteristics have been validated by [facility]. This test has not been approved by the FDA; however, such approval is not necessary. Result Comment: MILD HEMOLYSIS DETECTED. The result may be falsely elevated due to hemolysis or other interferents. Clinical correlation is recommended. Repeat testing may be considered. Performed By: #### 3 5255-9 ####IRVIN MUNGUIA ([id number])[facility])[address] [place], [place] [id number] CBC panel Auto (Bld)on 05-15 Erythrocyte distribution width (RBC) [Ratio] 15.2 % High 11.5-14.5 [facility] Comment on above: Performed By: #### 5 8410-2 ####IRVIN MUNGUIA ([id number])[facility])[address] [place] [address] 22913 Hematocrit (Bld) [Volume fraction] 43.8 % Normal 36.0-46.0 [facility] Comment on above: Performed By: #### 5 8410-2 ####IRVIN MUNGUIA ([id number])[facility])[address] [place] [address] 05075 Hemoglobin (Bld) [Mass/Vol] 13.6 g/dL Normal 12.0-16.0 [facility] Comment on above: Performed By: #### 5 8410-2 ####IRVIN MUNGUIA ([id number])[facility])[address] [place], [place] [id number] MCH (RBC) [Entitic mass] 26.5 pg Normal 26.0-34.0 [facility] Comment on above: Performed By: #### 5 8410-2 ####IRVIN MUNGUIA ([id number])[facility])[address] [place], [place] [address] MCHC (RBC) [Mass/Vol] 31.1 g/dL Low 32.0-36.0 [facility] Comment on above: Performed By: #### 5 8410-2 ####IRVIN MUNGUIA ([id number])[facility])[address] [place] [address] 96175 MCV (RBC) [Entitic vol] 85 fL Normal 80-100 [facility] Comment on above: Performed By: #### 5 8410-2 ####IRVIN MUNGUIA ([id number])[facility])[address] [place] [address] 04202 Nucleated RBC/100 WBC (Bld) [Ratio] 0.0 /100 WBCs Normal 0.0-0.0 [facility] Comment on above: Performed By: #### 5 8410-2 ####IRVIN MUNGUIA ([id number])[facility])[address] [place] [address] 60901 Platelets (Bld) [#/Vol] 367 x10*3/uL Normal 150-450 [facility] Comment on above: Performed By: #### 5 8410-2 ####IRVIN MUNGUIA ([id number])[facility])[address] [place] [address] RBC (Bld) [#/Vol] 5.14 x10*6/uL Normal 4.00-5.20 [facility] Comment on above: Performed By: #### 5 8410-2 ####IRVIN MUNGIUA ([id number])[facility])[address] [place] [address] WBC (Bld) [#/Vol] 11.3 x10*3/uL Normal 4.4-11.3 [facility] Comment on above: Performed By: #### 5 8410-2 ####IRVIN MUNGUIA ([id number])[facility])[address] [place] [address] [place] ABDOMEN PELVIS W IV CONTR Reny 05-15-2024 CT ABDOMEN PELVIS W IV CONTRAST Normal [facility] Coagulation tissue factor in ducedon 05-15-2024 PT Coag (PPP) [Time] 16.2 s High 9.8-12.8 [facility] Comment on above: Performed By: #### 5 902-2 ####IRVIN MUNGUIA ([id number])[facility])[address] [place] [address] Comprehensive metabolic 2000 panelon 05-15-2024 Albumin BCP dye [Mass/Vol] 4.8 g/dL Normal 3.4-5.0 [facility] Comment on above: Performed By: #### 2 4323-8 ####IRVIN MUNGUIA ([id number])[facility])[address] [place] [address] ALP [Catalytic activity/Vol] 127 U/L High 33-110 [facility] Comment on above: Performed By: #### 2 4323-8 ####IRVIN MUNGUIA ([id number])[facility])[address] [place] [address] ALT With P-5'-P [Catalytic activity/Vol] 48 U/L High 7-45 [facility] Comment on above: Result Comment: Evelyn ents treated with Sulfasalazine may generate falsely decreased results for ALT. Performed By: #### 2 4323-8 ####IRVIN MUNGUIA ([id number])[facility])[address] [place] [address] 22268 Anion gap [Moles/Vol] 16 mmol/L Normal 10-20 [facility] Comment on above: Performed By: #### 2 4323-8 ####IRVIN MUNGUIA ([id number])[facility])[address] [place] [address] 52810 AST With P-5'-P [Catalytic activity/Vol] 33 U/L Normal 9-39 [facility] Comment on above: Result Comment: MILD HEMOLYSIS DETECTED. The result may be falsely elevated due to hemolysis or other interferents. Clinical correlation is recommended. Repeat testing may be considered. Performed By: #### 2 4323-8 ####IRVIN MUNGUIA ([id number])[facility])[address] [place] [address] 91288 Bilirubin [Mass/Vol] 0.3 mg/dL Normal 0.0-1.2 [facility] Comment on above: Performed By: #### 2 4323-8 ####IRVIN MUNGUIA ([id number])[facility])[address] [place] [address] 84620 Calcium [Mass/Vol] 9.3 mg/dL Normal 8.6-10.3 [facility] Comment on above: Performed By: #### 2 4323-8 ####IRVIN MUNGUIA ([id number])[facility])[address] [place] [address] 44552 Chloride [Moles/Vol] 101 mmol/L Normal 98-107 [facility] Comment on above: Performed By: #### 2 4323-8 ####IRVIN MUNGUIA ([id number])[facility])[address] [place] [address] 98526 CO2 [Moles/Vol] 21 mmol/L Normal 21-32 [facility] Comment on above: Performed By: #### 2 4323-8 ####IRVIN MUNGUIA ([id number])[facility])[address] [place] [address] 38349 Creatinine [Mass/Vol] 0.78 mg/dL Normal 0.50-1.05 [facility] Comment on above: Performed By: #### 2 4323-8 ####IRVIN MUNGUIA ([id number])[facility])[address] [place] [address] 59149 GFR/1.73 sq M.predicted MDRD (S/P/Bld) [Vol rate/Area] mL/min/{1.73_m2} Normal >60 [facility] Comment on above: Result Comment: Calc ulations of estimated GFR are performed using the 2020 CKD-EPI Study Refit equation without the race variable for the IDMS-Traceable creatinine methods.https://jasn.asnjournals.org/content/early/ N.5401110884 Performed By: #### 2 4323-8 ####IRVIN MUNGUIA ([id number])[facility])[address] [place] [address] 13094 Glucose [Mass/Vol] 240 mg/dL High 74-99 [facility] Comment on above: Performed By: #### 2 4323-8 ####IRVIN MUNGUIA ([id number])[facility])[address] [place] [address] 98985 Potassium [Moles/Vol] 4.1 mmol/L Normal 3.5-5.3 [facility] Comment on above: Result Comment: MILD HEMOLYSIS DETECTED. The result may be falsely elevated due to hemolysis or other interferents. Clinical correlation is recommended. Repeat testing may be considered. Performed By: #### 2 4323-8 ####IRVIN MUNGUIA ([id number])[facility])[address] [place] [address] 49951 Protein [Mass/Vol] 8.1 g/dL Normal 6.4-8.2 [facility] Comment on above: Performed By: #### 2 4323-8 ####IRVIN MUNGUIA ([id number])[facility])[address] [place] [address] 83642 Sodium [Moles/Vol] 134 mmol/L Low 136-145 [facility] Comment on above: Performed By: #### 2 4323-8 ####IRVIN MUNGUIA ([id number])[facility])[address] [place] [address] 25464 Urea nitrogen [Mass/Vol] 21 mg/dL Normal 6-23 [facility] Comment on above: Performed By: #### 2 4323-8 ####IRVIN MUNGUIA ([id number])[facility])[address] [place] [address] 13682 PT Coag (PPP) [Time]on 05-15 INR Coag (PPP) [Relative time] 1.4 High 0.9-1.1 [facility] Comment on above: Performed By: #### 5 902-2 ####IRVIN MUNGUIA ([id number])[facility])[address] [place] [address] 08946 Triacylglycerol lipaseon Lipase [Catalytic activity/Vol] 19 U/L Normal 9-82 [facility] Comment on above: Order Comment: Venip uncture immediately after or during the administration of Metamizole may lead to falsely low results. Testing should be performed immediately prior to Metamizole dosing. Performed By: #### 3 040-3 ####IRVIN MUNGUIA ([id number])[facility])[address] [place] [address] 07696 Urinalysis complete W Reflex Culture panel (U)on 05-15-2024 Appearance (U) Clear Normal Clear [facility] Comment on above: Performed By: #### 5 8077-9 ####IRVIN MUNGUIA ([id number])[facility])[address] [place] [address] Bilirubin (U) [Mass/Vol] Negative Normal NEGATIVE [facility] Comment on above: Performed By: #### 5 8077-9 ####IRVIN MUNGUIA ([id number])[facility])[address] [place] [address] Color (U) Colorless Normal Light-Yellow , Yellow, Dark-Yellow [facility] Comment on above: Performed By: #### 5 8077-9 ####IRVIN MUNGUIA ([id number])[facility])[address] [place] [address] Glucose Auto test strip (U) [Mass/Vol] Normal Normal Normal [facility] Comment on above: Performed By: #### 5 8077-9 ####IRVIN MUNGUIA ([id number])[facility])[address] [place] [address] Ketones (U) [Mass/Vol] Negative Normal NEGATIVE [facility] Comment on above: Performed By: #### 5 8077-9 ####IRVIN MUNGUIA ([id number])[facility])[address] [place], [place] [address] Leukocyte esterase Auto test strip Ql (U) Negative Normal NEGATIVE [facility] Comment on above: Performed By: #### 5 8077-9 ####IRVIN MUNGUIA ([id number])[facility])[address] [place], [place] [address] Nitrite Auto test strip Ql (U) Negative Normal NEGATIVE [facility] Comment on above: Performed By: #### 5 8077-9 ####IRVIN MUNGUIA ([id number])[facility])[address] [place], [place] [address] pH (U) 6.0 [pH] Normal 5.0, 5.5, 6.0, 6.5, 7.0, 7.5, 8.0 [facility] Comment on above: Performed By: #### 5 8077-9 ####IRVIN MUNGUIA ([id number])[facility])[address] [place] [address] Protein (U) [Mass/Vol] Negative Normal NEGATIVE, 10 (TRACE), 20 (TRACE) [facility] Comment on above: Performed By: #### 5 8077-9 ####IRVIN MUNGUIA ([id number])[facility])[address] [place] [address] RBC (U) [#/Vol] Negative Normal NEGATIVE [facility] Comment on above: Performed By: #### 5 8077-9 ####IRVIN MUNGUIA ([id number])[facility])[address] [place] [address] Specific gravity (U) [Rel density] 1.013 Normal 1.005-1.035 [facility] Comment on above: Performed By: #### 5 8077-9 ####IRVIN MUNGUIA ([id number])[facility])[address] [place] [address] Urobilinogen (U) [Mass/Vol] Normal Normal Normal [facility] Comment on above: Performed By: #### 5 8077-9 ####IRVIN MUNGUIA ([id number])[facility])[address] [place] [address] XR CHEST 1 VIEWon 05-15-2024 XR CHEST 1 VIEW Normal [facility] CBC W Auto Differential pane l (Bld)on 04-21-2024 Basophils (Bld) [#/Vol] 0.04 x10*3/uL Normal 0.00-0.10 [facility] Comment on above: Performed By: #### 5 7021-8 ####IRVIN MUNGUIA ([id number])[facility])[address] [place] [address] Basophils/100 WBC (Bld) 0.4 % Normal 0.0-2.0 [facility] Comment on above: Performed By: #### 5 7021-8 ####IRVIN MUNGUIA ([id number])[facility])[address] [place] [address] 46693 Eosinophils (Bld) [#/Vol] 0.19 x10*3/uL Normal 0.00-0.70 [facility] Comment on above: Performed By: #### 5 7021-8 ####IRVIN MUNGUIA ([id number])[facility])[address] [place] [address] 89180 Eosinophils/100 WBC (Bld) 1.7 % Normal 0.0-6.0 [facility] Comment on above: Performed By: #### 5 7021-8 ####IRVIN MUNGUIA ([id number])[facility])[address] [place] [address] 99537 Erythrocyte distribution width (RBC) [Ratio] 14.8 % High 11.5-14.5 [facility] Comment on above: Performed By: #### 5 7021-8 ####IRVIN MUNGUIA ([id number])[facility])[address] [place] [address] 25142 Hematocrit (Bld) [Volume fraction] 38.8 % Normal 36.0-46.0 [facility] Comment on above: Performed By: #### 5 7021-8 ####IRVIN MUNGUIA ([id number])[facility])[address] [place] [address] 55068 Hemoglobin (Bld) [Mass/Vol] 11.8 g/dL Low 12.0-16.0 [facility] Comment on above: Performed By: #### 5 7021-8 ####IRVIN MUNGUIA ([id number])[facility])[address] [place] [address] 13118 Immature granulocytes (Bld) [#/Vol] 0.05 x10*3/uL Normal 0.00-0.70 [facility] Comment on above: Performed By: #### 5 7021-8 ####IRVIN MUNGUIA ([id number])[facility])[address] [place] [address] 09259 Immature granulocytes/100 WBC (Bld) 0.5 % Normal 0.0-0.9 [facility] Comment on above: Result Comment: Debbie ture Granulocyte Count (IG) includes promyelocytes, myelocytes and metamyelocytes but does not include bands. Percent differential counts (%) should be interpreted in the context of the absolute cell counts (cells/UL). Performed By: #### 5 7021-8 ####IRVIN MUNGUIA ([id number])[facility])[address] [place] [address] 99897 Lymphocytes (Bld) [#/Vol] 2.10 x10*3/uL Normal 1.20-4.80 [facility] Comment on above: Performed By: #### 5 7021-8 ####IRVIN MUNGUIA ([id number])[facility])[address] [place] [address] 48314 Lymphocytes/100 WBC (Bld) 19.3 % Normal 13.0-44.0 [facility] Comment on above: Performed By: #### 5 7021-8 ####IRVIN MUNGUIA ([id number])[facility])[address] [place] [address] 39890 MCH (RBC) [Entitic mass] 25.5 pg Low 26.0-34.0 [facility] Comment on above: Performed By: #### 5 7021-8 ####IRVIN MUNGUIA ([id number])[facility])[address] [place] [address] 80358 MCHC (RBC) [Mass/Vol] 30.4 g/dL Low 32.0-36.0 [facility] Comment on above: Performed By: #### 5 7021-8 ####IRVIN MUNGUIA ([id number])[facility])[address] [place] [address] 58276 MCV (RBC) [Entitic vol] 84 fL Normal 80-100 [facility] Comment on above: Performed By: #### 5 7021-8 ####IRVIN MUNGUIA ([id number])[facility])[address] [place] [address] 04169 Monocytes (Bld) [#/Vol] 0.64 x10*3/uL Normal 0.10-1.00 [facility] Comment on above: Performed By: #### 5 7021-8 ####IRVIN MUNGUIA ([id number])[facility])[address] [place] [address] 01332 Monocytes/100 WBC (Bld) 5.9 % Normal 2.0-10.0 [facility] Comment on above: Performed By: #### 5 7021-8 ####IRVIN MUNGUIA ([id number])[facility])[address] [place] [address] 61727 Neutrophils (Bld) [#/Vol] 7.84 x10*3/uL High 1.20-7.70 [facility] Comment on above: Result Comment: Perc ent differential counts (%) should be interpreted in the context of the absolute cell counts (cells/uL). Performed By: #### 5 7021-8 ####IRVIN MUNGUIA ([id number])[facility])[address] [place] [address] 88359 Neutrophils/100 WBC (Bld) 72.2 % Normal 40.0-80.0 [facility] Comment on above: Performed By: #### 5 7021-8 ####IRVIN MUNGUIA ([id number])[facility])[address] [place] [address] 67121 Nucleated RBC/100 WBC (Bld) [Ratio] 0.0 /100 WBCs Normal 0.0-0.0 [facility] Comment on above: Performed By: #### 5 7021-8 ####IRVIN MUNGUIA ([id number])[facility])[address] [place] [address] 54224 Platelets (Bld) [#/Vol] 345 x10*3/uL Normal 150-450 [facility] Comment on above: Performed By: #### 5 7021-8 ####IRVIN MUNGUIA ([id number])[facility])[address] [place] [address] 53192 RBC (Bld) [#/Vol] 4.63 x10*6/uL Normal 4.00-5.20 [facility] Comment on above: Performed By: #### 5 7021-8 ####IRVIN MUNGUIA ([id number])[facility])[address] [place] [address] WBC (Bld) [#/Vol] 10.9 x10*3/uL Normal 4.4-11.3 [facility] Comment on above: Performed By: #### 5 7021-8 ####IRVIN MUNGUIA ([id number])[facility])[address] [place] [address] Comprehensive metabolic 2000 panelon 04-21-2024 Albumin BCP dye [Mass/Vol] 4.2 g/dL Normal 3.4-5.0 [facility] Comment on above: Performed By: #### 2 4323-8 ####IRVIN MUNGUIA ([id number])[facility])[address] [place] [address] ALP [Catalytic activity/Vol] 168 U/L High 33-110 [facility] Comment on above: Performed By: #### 2 4323-8 ####IRVIN MUNGUIA ([id number])[facility])[address] [place] [address] ALT With P-5'-P [Catalytic activity/Vol] 53 U/L High 7-45 [facility] Comment on above: Result Comment: Evelyn ents treated with Sulfasalazine may generate falsely decreased results for ALT. Performed By: #### 2 4323-8 ####IRVIN MUNGUIA ([id number])[facility])[address] [place] [address] 47630 Anion gap [Moles/Vol] 17 mmol/L Normal 10-20 [facility] Comment on above: Performed By: #### 2 4323-8 ####IRVIN MUNGUIA ([id number])[facility])[address] [place], [place] [phone] AST With P-5'-P [Catalytic activity/Vol] 26 U/L Normal 9-39 [facility] Comment on above: Performed By: #### 2 4323-8 ####IRVIN MUNGUIA ([id number])[facility])[address] [place] [address] 14623 Bilirubin [Mass/Vol] 0.3 mg/dL Normal 0.0-1.2 [facility] Comment on above: Performed By: #### 2 4323-8 ####IRVIN MUNGUIA ([id number])[facility])[address] [place] [address] 72939 Calcium [Mass/Vol] 9.8 mg/dL Normal 8.6-10.3 [facility] Comment on above: Performed By: #### 2 4323-8 ####IRVIN MUNGUIA ([id number])[facility])[address] [place] [address] 91955 Chloride [Moles/Vol] 99 mmol/L Normal 98-107 [facility] Comment on above: Performed By: #### 2 4323-8 ####IRVIN MUNGUIA ([id number])[facility])[address] [place] [address] 93489 CO2 [Moles/Vol] 23 mmol/L Normal 21-32 [facility] Comment on above: Performed By: #### 2 4323-8 ####IRVIN MUNGUAI ([id number])[facility])[address] [place] [address] 68874 Creatinine [Mass/Vol] 0.78 mg/dL Normal 0.50-1.05 [facility] Comment on above: Performed By: #### 2 4323-8 ####IRVIN MUNGUIA ([id number])[facility] [place] [address] 16443 GFR/1.73 sq M.predicted MDRD (S/P/Bld) [Vol rate/Area] mL/min/{1.73_m2} Normal >60 [facility] Comment on above: Result Comment: Calc ulations of estimated GFR are performed using the 2020 CKD-EPI Study Refit equation without the race variable for the IDMS-Traceable creatinine methods.https://jasn.asnjournals.org/content// N.8805977925 Performed By: #### 2 4323-8 ####IRVIN MUNGUIA ([id number])[facility])[address] [place] [address] 50935 Glucose [Mass/Vol] 167 mg/dL High 74-99 [facility] Comment on above: Performed By: #### 2 4323-8 ####IRVIN MUNGUIA ([id number])[facility])[address] [place] [address] 03061 Potassium [Moles/Vol] 3.9 mmol/L Normal 3.5-5.3 [facility] Comment on above: Performed By: #### 2 4323-8 ####IRVIN MUNGUIA ([id number])[facility])[address] [place] [address] 70571 Protein [Mass/Vol] 7.9 g/dL Normal 6.4-8.2 [facility] Comment on above: Performed By: #### 2 4323-8 ####IRVIN MUNGUIA ([id number])[facility])[address] [place] [address] 08489 Sodium [Moles/Vol] 135 mmol/L Low 136-145 [facility] Comment on above: Performed By: #### 2 4323-8 ####IRVIN MUNGUIA ([id number])[facility])[address] [place] [address] 27227 Urea nitrogen [Mass/Vol] 12 mg/dL Normal 6-23 [facility] Comment on above: Performed By: #### 2 4323-8 ####IRVIN MUNGUIA ([id number])[facility])[address] [place] [address] 04442 Lactateon 04-21-2024 Lactate [Moles/Vol] 1.6 mmol/L Normal 0.4-2.0 [facility] Comment on above: Order Comment: Venip uncture immediately after or during the administration of Metamizole may lead to falsely low results. Testing should be performed immediatelyprior to Metamizole dosing. Performed By: #### 2 524-7 ####IRVIN MUNGUIA ([id number])[facility])[address] [place] [address] 86396 Triacylglycerol lipaseon Lipase [Catalytic activity/Vol] 62 U/L Normal 9-82 [facility] Comment on above: Order Comment: Venip uncture immediately after or during the administration of Metamizole may lead to falsely low results. Testing should be performed immediately prior to Metamizole dosing. Performed By: #### 3 040-3 ####IRVIN MUNGUIA ([id number])[facility] [facility] [place] [address] Urinalysis complete W Reflex Culture panel (U)on 04-21-2024 Appearance (U) Clear Normal Clear [facility] Comment on above: Performed By: #### 5 8077-9 ####IRVIN MUNGUIA ([id number])[facility])[address] [place] [address] 57848 Bilirubin (U) [Mass/Vol] Negative Normal NEGATIVE [facility] Comment on above: Performed By: #### 5 8077-9 ####IRVIN MUNGUIA ([id number])[facility])[address] [place] [address] 04825 Color (U) Colorless Normal Light-Yellow , Yellow, Dark-Yellow [facility] Comment on above: Performed By: #### 5 8077-9 ####IRVIN MUNGUIA ([id number])[facility])[address] [place], [place] [phone] Glucose Auto test strip (U) [Mass/Vol] Normal Normal Normal [facility] Comment on above: Performed By: #### 5 8077-9 ####IRVIN MUNGUIA ([id number])[facility])[address] [place] [address] 80992 Ketones (U) [Mass/Vol] Negative Normal NEGATIVE [facility] Comment on above: Performed By: #### 5 8077-9 ####IRVIN MUNGUIA ([id number])[facility])[address] [place] [address] 39431 Leukocyte esterase Auto test strip Ql (U) Negative Normal NEGATIVE [facility] Comment on above: Performed By: #### 5 8077-9 ####IRVIN MUNGUIA ([id number])[facility])[address] [place] [address] Nitrite Auto test strip Ql (U) Negative Normal NEGATIVE [facility] Comment on above: Performed By: #### 5 8077-9 ####IRVIN MUNGUIA ([id number])[facility])[address] [place] [address] pH (U) 6.5 [pH] Normal 5.0, 5.5, 6.0, 6.5, 7.0, 7.5, 8.0 [facility] Comment on above: Performed By: #### 5 8077-9 ####IRVIN MUNGUIA ([id number])[facility])[address] [place] [address] 77878 Protein (U) [Mass/Vol] Negative Normal NEGATIVE, 10 (TRACE), 20 (TRACE) [facility] Comment on above: Performed By: #### 5 8077-9 ####IRVIN MUNGUIA ([id number])[facility])[address] [place] [address] 95715 RBC (U) [#/Vol] Negative Normal NEGATIVE [facility] Comment on above: Performed By: #### 5 8077-9 ####IRVIN MUNGUIA ([id number])[facility])[address] [place] [address] 03515 Specific gravity (U) [Rel density] 1.010 Normal 1.005-1.035 [facility] Comment on above: Performed By: #### 5 8077-9 ####IRVIN MUNGUIA ([id number])[facility])[address] [place] [address] 36197 Urobilinogen (U) [Mass/Vol] Normal Normal Normal [facility] Comment on above: Performed By: #### 5 8077-9 ####IRVIN MUNGUIA ([id number])[facility])[address] [place] [address] CBC W Auto Differential pane l (Bld)on 04-12-2024 Basophils (Bld) [#/Vol] 0.07 x10*3/uL Normal 0.00-0.10 [facility] Comment on above: Performed By: #### 5 7021-8 ####IRVIN MUNGUIA ([id number])[facility])[address] [place] [address] Basophils/100 WBC (Bld) 0.7 % Normal 0.0-2.0 [facility] Comment on above: Performed By: #### 5 7021-8 ####IRVIN MUNGUIA ([id number])[facility])[address] [place], [place] [phone] Eosinophils (Bld) [#/Vol] 0.09 x10*3/uL Normal 0.00-0.70 [facility] Comment on above: Performed By: #### 5 7021-8 ####IRVIN MUNGUIA ([id number])[facility])[address] [place] [address] 30492 Eosinophils/100 WBC (Bld) 0.9 % Normal 0.0-6.0 [facility] Comment on above: Performed By: #### 5 7021-8 ####IRVIN MUNGUIA ([id number])[facility])[address] [place], [place] [phone] Erythrocyte distribution width (RBC) [Ratio] 14.1 % Normal 11.5-14.5 [facility] Comment on above: Performed By: #### 5 7021-8 ####IRVIN MUNGUIA ([id number])[facility])[address] [place] [address] Hematocrit (Bld) [Volume fraction] 38.5 % Normal 36.0-46.0 [facility] Comment on above: Performed By: #### 5 7021-8 ####IRVIN MUNGUIA ([id number])[facility])[address] [place] [address] 50585 Hemoglobin (Bld) [Mass/Vol] 11.8 g/dL Low 12.0-16.0 [facility] Comment on above: Performed By: #### 5 7021-8 ####IRVIN MUNGUIA ([id number])[facility])[address] [place] [address] 33611 Immature granulocytes (Bld) [#/Vol] 0.03 x10*3/uL Normal 0.00-0.70 [facility] Comment on above: Performed By: #### 5 7021-8 ####IRVIN MUNGUIA ([id number])[facility])[address] [place] [address] 07621 Immature granulocytes/100 WBC (Bld) 0.3 % Normal 0.0-0.9 [facility] Comment on above: Result Comment: Debbie ture Granulocyte Count (IG) includes promyelocytes, myelocytes and metamyelocytes but does not include bands. Percent differential counts (%) should be interpreted in the context of the absolute cell counts (cells/UL). Performed By: #### 5 7021-8 ####IRVIN MUNGUIA ([id number])[facility])[address] [place] [address] 99956 Lymphocytes (Bld) [#/Vol] 4.01 x10*3/uL Normal 1.20-4.80 [facility] Comment on above: Performed By: #### 5 7021-8 ####IRVIN MUNGUIA ([id number])[facility])[address] [place] [address] 81886 Lymphocytes/100 WBC (Bld) 41.8 % Normal 13.0-44.0 [facility] Comment on above: Performed By: #### 5 7021-8 ####IRVIN MUNGUIA ([id number])[facility])[address] [place] [address] 24835 MCH (RBC) [Entitic mass] 25.9 pg Low 26.0-34.0 [facility] Comment on above: Performed By: #### 5 7021-8 ####IRVIN MUNGUIA ([id number])[facility])[address] [place] [address] 73168 MCHC (RBC) [Mass/Vol] 30.6 g/dL Low 32.0-36.0 [facility] Comment on above: Performed By: #### 5 7021-8 ####IRVIN MUNGUIA ([id number])[facility])[address] [place], [place] [phone] MCV (RBC) [Entitic vol] 85 fL Normal 80-100 [facility] Comment on above: Performed By: #### 5 7021-8 ####IRVIN MUNGUIA ([id number])[facility])[address] [place] [address] 58700 Monocytes (Bld) [#/Vol] 0.58 x10*3/uL Normal 0.10-1.00 [facility] Comment on above: Performed By: #### 5 7021-8 ####IRVIN MUNGUIA ([id number])[facility])[address] [place] [address] 22486 Monocytes/100 WBC (Bld) 6.0 % Normal 2.0-10.0 [facility] Comment on above: Performed By: #### 5 7021-8 ####IRVIN MUNGUIA ([id number])[facility])[address] [place] [address] 81090 Neutrophils (Bld) [#/Vol] 4.81 x10*3/uL Normal 1.20-7.70 [facility] Comment on above: Result Comment: Perc ent differential counts (%) should be interpreted in the context of the absolute cell counts (cells/uL). Performed By: #### 5 7021-8 ####IRVIN MUNGUIA ([id number])[facility])[address] [place] [address] 22338 Neutrophils/100 WBC (Bld) 50.3 % Normal 40.0-80.0 [facility] Comment on above: Performed By: #### 5 7021-8 ####IRVIN MUNGUIA ([id number])[facility])[address] [place] [address] 29618 Nucleated RBC/100 WBC (Bld) [Ratio] 0.0 /100 WBCs Normal 0.0-0.0 [facility] Comment on above: Performed By: #### 5 7021-8 ####IRVIN MUNGUIA ([id number])[facility])[address] [place] [address] 91532 Platelets (Bld) [#/Vol] 344 x10*3/uL Normal 150-450 [facility] Comment on above: Performed By: #### 5 7021-8 ####IRVIN MUNGUIA ([id number])[facility])[address] [place] [address] 27304 RBC (Bld) [#/Vol] 4.55 x10*6/uL Normal 4.00-5.20 [facility] Comment on above: Performed By: #### 5 7021-8 ####IRVIN MUNGUIA ([id number])[facility])[address] [place] [address] 06011 WBC (Bld) [#/Vol] 9.6 x10*3/uL Normal 4.4-11.3 [facility] Comment on above: Performed By: #### 5 7021-8 ####IRVIN MUNGUIA ([id number])[facility])[address] [place] [address] ABDOMEN PELVIS W IV CONTR Reny 04-12-2024 CT ABDOMEN PELVIS W IV CONTRAST Normal [facility] Coagulation surface inducedo n 04-12-2024 aPTT Coag (PPP) [Time] 47 s High 27-38 [facility] Comment on above: Order Comment: The A PTT is no longer used for monitoring Unfractionated Heparin Therapy. For monitoring Heparin Therapy, use the Heparin Assay. Performed By: #### 1 4979-9 ####IRVIN MUNGUIA ([id number])[facility])[address] [place], [place] [phone] Coagulation tissue factor in ducedon 04-12-2024 PT Coag (PPP) [Time] 21.9 s High 9.8-12.8 [facility] Comment on above: Performed By: #### 5 902-2 ####IRVIN MUNGUIA ([id number])[facility])[address] [place] [address] 99724 Comprehensive metabolic 2000 panelon 04-12-2024 Albumin BCP dye [Mass/Vol] 4.1 g/dL Normal 3.4-5.0 [facility] Comment on above: Performed By: #### 2 4323-8 ####IRVIN MUNGUIA ([id number])[facility])[address] [place] [address] 06685 ALP [Catalytic activity/Vol] 134 U/L High 33-110 [facility] Comment on above: Performed By: #### 2 4323-8 ####IRVIN MUNGUIA ([id number])[facility])[address] [place] [address] 26519 ALT With P-5'-P [Catalytic activity/Vol] 39 U/L Normal 7-45 [facility] Comment on above: Result Comment: Evelyn ents treated with Sulfasalazine may generate falsely decreased results for ALT. Performed By: #### 2 4323-8 ####IRVIN MUNGUIA ([id number])[facility])[address] [place] [address] 57372 Anion gap [Moles/Vol] 16 mmol/L Normal 10-20 [facility] Comment on above: Performed By: #### 2 4323-8 ####IRVIN MUNGUIA ([id number])[facility])[address] [place] [address] 06762 AST With P-5'-P [Catalytic activity/Vol] 35 U/L Normal 9-39 [facility] Comment on above: Performed By: #### 2 4323-8 ####IRVIN MUNGUIA ([id number])[facility])[address] [place] [address] Bilirubin [Mass/Vol] 0.3 mg/dL Normal 0.0-1.2 [facility] Comment on above: Performed By: #### 2 4323-8 ####IRVIN MUGNUIA ([id number])[facility])[address] [place] [address] 06158 Calcium [Mass/Vol] 8.7 mg/dL Normal 8.6-10.3 [facility] Comment on above: Performed By: #### 2 4323-8 ####IRVIN MUNGUIA ([id number])[facility])[address] [place] [address] 24084 Chloride [Moles/Vol] 101 mmol/L Normal 98-107 [facility] Comment on above: Performed By: #### 2 4323-8 ####IRVIN MUNGUIA ([id number])[facility])[address] [place] [address] CO2 [Moles/Vol] 20 mmol/L Low 21-32 [facility] Comment on above: Performed By: #### 2 4323-8 ####IRVIN MUNGUIA ([id number])[facility] [place] [address] Creatinine [Mass/Vol] 0.94 mg/dL Normal 0.50-1.05 [facility] Comment on above: Performed By: #### 2 4323-8 ####IRVIN MUNGUIA ([id number])[facility])[address] [place] [address] 99643 Glomerular filtration rate/1.73 sq M.predicted 75 mL/min/1.73m*2 Normal >60 [facility] Comment on above: Result Comment: Calc ulations of estimated GFR are performed using the 2020 CKD-EPI Study Refit equation without the race variable for the IDMS-Traceable creatinine methods.https://jasn.asnjournals.org/content// N.4156178592 Performed By: #### 2 4323-8 ####IRVIN MUNGUIA ([id number])[facility])[address] [place] [address] 82314 Glucose [Mass/Vol] 146 mg/dL High 74-99 [facility] Comment on above: Performed By: #### 2 4323-8 ####IRVIN MUNGUIA ([id number])[facility])[address] [place] [address] 77198 Potassium [Moles/Vol] 4.3 mmol/L Normal 3.5-5.3 [facility] Comment on above: Performed By: #### 2 4323-8 ####IRVIN MUNGUIA ([id number])[facility])[address] [place] [address] 84457 Protein [Mass/Vol] 7.6 g/dL Normal 6.4-8.2 [facility] Comment on above: Performed By: #### 2 4323-8 ####IRVIN MUNGUIA ([id number])[facility])[address] [place] [address] 11057 Sodium [Moles/Vol] 133 mmol/L Low 136-145 [facility] Comment on above: Performed By: #### 2 4323-8 ####IRVIN MUNGUIA ([id number])[facility])[address] [place] [address] 56726 Urea nitrogen [Mass/Vol] 13 mg/dL Normal 6-23 [facility] Comment on above: Performed By: #### 2 4323-8 ####IRVIN MUNGUIA ([id number])[facility])[address] [place] [address] 10517 Lactateon 04-12-2024 Lactate [Moles/Vol] 2.2 mmol/L High 0.4-2.0 [facility] Comment on above: Order Comment: Venip uncture immediately after or during the administration of Metamizole may lead to falsely low results. Testing should be performed immediatelyprior to Metamizole dosing. Performed By: #### 2 524-7 ####IRVIN MUNGUIA ([id number])[facility])[address] [place] [address] Magnesiumon 04-12-2024 Magnesium [Mass/Vol] 1.79 mg/dL Normal 1.60-2.40 [facility] Comment on above: Performed By: #### 1 9123-9 ####IRVIN MUNGUIA ([id number])[facility])[address] [place] [address] PT Coag (PPP) [Time]on 04-12 INR Coag (PPP) [Relative time] 1.9 High 0.9-1.1 [facility] Comment on above: Performed By: #### 5 902-2 ####IRVIN MUNGUIA ([id number])[facility])[address] [place] [address] Triacylglycerol lipaseon Lipase [Catalytic activity/Vol] 29 U/L Normal 9-82 [facility] Comment on above: Order Comment: Venip uncture immediately after or during the administration of Metamizole may lead to falsely low results. Testing should be performed immediately prior to Metamizole dosing. Performed By: #### 3 040-3 ####IRVIN MUNGUIA ([id number])[facility])[address] [place] [address] CBC W Auto Differential pane l (Bld)on 04-03-2024 Basophils (Bld) [#/Vol] 0.04 x10*3/uL Normal 0.00-0.10 [facility] Comment on above: Performed By: #### 5 7021-8 ####IRVIN MUNGUIA ([id number])[facility])[address] [place], [place] [phone] Basophils/100 WBC (Bld) 0.3 % Normal 0.0-2.0 [facility] Comment on above: Performed By: #### 5 7021-8 ####IRVIN MUNGUIA ([id number])[facility])[address] [place] [address] 29236 Eosinophils (Bld) [#/Vol] 0.16 x10*3/uL Normal 0.00-0.70 [facility] Comment on above: Performed By: #### 5 7021-8 ####IRVIN MUNGUIA ([id number])[facility])[address] [place], [place] [phone] Eosinophils/100 WBC (Bld) 1.3 % Normal 0.0-6.0 [facility] Comment on above: Performed By: #### 7021-8 ####IRVIN MNUGUIA ([id number])[facility])[address] [place] [address] Erythrocyte distribution width (RBC) [Ratio] 13.8 % Normal 11.5-14.5 [facility] Comment on above: Performed By: #### 5 7021-8 ####IRVIN MUNGUIA ([id number])[facility])[address] [place] [address] Hematocrit (Bld) [Volume fraction] 38.0 % Normal 36.0-46.0 [facility] Comment on above: Performed By: #### 5 7021-8 ####IRVIN MUNGUIA ([id number])[facility])[address] [place] [address] Hemoglobin (Bld) [Mass/Vol] 11.7 g/dL Low 12.0-16.0 [facility] Comment on above: Performed By: #### 5 7021-8 ####IRVIN MUNGUIA ([id number])[facility])[address] [place] [address] 14317 Immature granulocytes (Bld) [#/Vol] 0.07 x10*3/uL Normal 0.00-0.70 [facility] Comment on above: Performed By: #### 5 7021-8 ####IRVIN MUNGUIA ([id number])[facility])[address] [place] [address] 03528 Immature granulocytes/100 WBC (Bld) 0.6 % Normal 0.0-0.9 [facility] Comment on above: Result Comment: Debbie ture Granulocyte Count (IG) includes promyelocytes, myelocytes and metamyelocytes but does not include bands. Percent differential counts (%) should be interpreted in the context of the absolute cell counts (cells/UL). Performed By: #### 5 7021-8 ####IRVIN MUNGUIA ([id number])[facility])[address] [place] [address] Lymphocytes (Bld) [#/Vol] 2.81 x10*3/uL Normal 1.20-4.80 [facility] Comment on above: Performed By: #### 5 7021-8 ####IRVIN MUNGUIA ([id number])[facility])[address] [place] [address] 81829 Lymphocytes/100 WBC (Bld) 23.5 % Normal 13.0-44.0 [facility] Comment on above: Performed By: #### 5 7021-8 ####IRVIN MUNGUIA ([id number])[facility])[address] [place] [address] 64949 MCH (RBC) [Entitic mass] 26.2 pg Normal 26.0-34.0 [facility] Comment on above: Performed By: #### 5 7021-8 ####IRVIN MUNGUIA ([id number])[facility] [place] [address] 00780 MCHC (RBC) [Mass/Vol] 30.8 g/dL Low 32.0-36.0 [facility] Comment on above: Performed By: #### 5 7021-8 ####IRVIN MUNGUIA ([id number])[facility] [place] [address] 02693 MCV (RBC) [Entitic vol] 85 fL Normal 80-100 [facility] Comment on above: Performed By: #### 5 7021-8 ####IRVIN MUNGUIA ([id number])[facility] [place] [address] 53978 Monocytes (Bld) [#/Vol] 0.56 x10*3/uL Normal 0.10-1.00 [facility] Comment on above: Performed By: #### 5 7021-8 ####IRVIN MUNGUIA ([id number])[facility] [place] [address] 68611 Monocytes/100 WBC (Bld) 4.7 % Normal 2.0-10.0 [facility] Comment on above: Performed By: #### 5 7021-8 ####IRVIN MUNGUIA ([id number])[facility] [place] [address] 59435 Neutrophils (Bld) [#/Vol] 8.33 x10*3/uL High 1.20-7.70 [facility] Comment on above: Result Comment: Perc ent differential counts (%) should be interpreted in the context of the absolute cell counts (cells/uL). Performed By: #### 5 7021-8 ####IRVIN MUNGUIA ([id number])[facility] [place] [address] 49892 Neutrophils/100 WBC (Bld) 69.6 % Normal 40.0-80.0 [facility] Comment on above: Performed By: #### 5 7021-8 ####IRVIN MUNGUIA ([id number])[facility] [place] [address] 26021 Nucleated RBC/100 WBC (Bld) [Ratio] 0.0 /100 WBCs Normal 0.0-0.0 [facility] Comment on above: Performed By: #### 5 7021-8 ####IRVIN MUNGUIA ([id number])[facility] [place] [address] 05350 Platelets (Bld) [#/Vol] 450 x10*3/uL Normal 150-450 [facility] Comment on above: Performed By: #### 5 7021-8 ####IRVIN MUNGUIA ([id number])[facility])[address] [place] [address] RBC (Bld) [#/Vol] 4.47 x10*6/uL Normal 4.00-5.20 [facility] Comment on above: Performed By: #### 5 7021-8 ####IRVIN MUNGUIA ([id number])[facility])[address] [place] [address] WBC (Bld) [#/Vol] 12.0 x10*3/uL High 4.4-11.3 [facility] Comment on above: Performed By: #### 5 7021-8 ####IRVIN MUNGUIA ([id number])[facility])[address] [place] [address] Coagulation tissue factor in ducedon 04-03-2024 PT Coag (PPP) [Time] 19.9 s High 9.8-12.8 [facility] Comment on above: Performed By: #### 5 902-2 ####IRVIN MUNGUIA ([id number])[facility])[address] [place] [address] Comprehensive metabolic 2000 panelon 04-03-2024 Albumin BCP dye [Mass/Vol] 4.1 g/dL Normal 3.4-5.0 [facility] Comment on above: Performed By: #### 2 4323-8 ####IRVIN MUNGUIA ([id number])[facility])[address] [place] [address] ALP [Catalytic activity/Vol] 175 U/L High 33-110 [facility] Comment on above: Performed By: #### 2 4323-8 ####IRVIN MUNGUIA ([id number])[facility])[address] [place] [address] ALT With P-5'-P [Catalytic activity/Vol] 29 U/L Normal 7-45 [facility] Comment on above: Result Comment: Evelyn ents treated with Sulfasalazine may generate falsely decreased results for ALT. Performed By: #### 2 4323-8 ####IRVIN MUNGUIA ([id number])[facility])[address] [place] [address] Anion gap [Moles/Vol] 17 mmol/L Normal 10-20 [facility] Comment on above: Performed By: #### 2 4322-8 ####IRVIN MUNGUIA ([id number])[facility])[address] [place] [address] AST With P-5'-P [Catalytic activity/Vol] 28 U/L Normal 9-39 [facility] Comment on above: Result Comment: MILD HEMOLYSIS DETECTED. The result may be falsely elevated due to hemolysis or other interferents. Clinical correlation is recommended. Repeat testing may be considered. Performed By: #### 2 4322-8 ####IRVIN MUNGUIA ([id number])[facility])[address] [place] [address]51 Bilirubin [Mass/Vol] 0.2 mg/dL Normal 0.0-1.2 [facility] Comment on above: Performed By: #### 2 4322-8 ####IRVIN MUNGUIA ([id number])[facility] [facility] [place] [address] 57249 Calcium [Mass/Vol] 9.3 mg/dL Normal 8.6-10.3 [facility] Comment on above: Performed By: #### 2 432-8 ####IRVIN MUNGUIA ([id number])[facility])[address] [place] [address] 49345 Chloride [Moles/Vol] 99 mmol/L Normal 98-107 [facility] Comment on above: Performed By: #### 2 3-8 ####IRVIN MUNGUIA ([id number])[facility])[address] [place] [address] 09139 CO2 [Moles/Vol] 22 mmol/L Normal 21-32 [facility] Comment on above: Performed By: #### 2 4322-8 ####IRVIN MUNGUIA ([id number])[facility])[address] [place] [address] 73741 Creatinine [Mass/Vol] 0.86 mg/dL Normal 0.50-1.05 [facility] Comment on above: Performed By: #### 2 4323-8 ####IRVIN MUNGUIA ([id number])[facility])[address] [place] [address] 23712 Glomerular filtration rate/1.73 sq M.predicted 83 mL/min/1.73m*2 Normal >60 [facility] Comment on above: Result Comment: Calc ulations of estimated GFR are performed using the 2020 CKD-EPI Study Refit equation without the race variable for the IDMS-Traceable creatinine methods.https://jasn.asnjournals.org/content/early// N.0315979590 Performed By: #### 2 4323-8 ####IRVIN MUNGUIA ([id number])[facility])[address] [place] [address] 94823 Glucose [Mass/Vol] 207 mg/dL High 74-99 [facility] Comment on above: Performed By: #### 2 4323-8 ####IRVIN MUNGUIA ([id number])[facility])[address] [place] [address] 68624 Potassium [Moles/Vol] 4.4 mmol/L Normal 3.5-5.3 [facility] Comment on above: Result Comment: MILD HEMOLYSIS DETECTED. The result may be falsely elevated due to hemolysis or other interferents. Clinical correlation is recommended. Repeat testing may be considered. Performed By: #### 2 4323-8 ####IRVIN MUNGUIA ([id number])[facility])[address] [place] [address] 10362 Protein [Mass/Vol] 8.1 g/dL Normal 6.4-8.2 [facility] Comment on above: Performed By: #### 2 4323-8 ####IRVIN MUNGUIA ([id number])[facility])[address] [place] [address] 63700 Sodium [Moles/Vol] 134 mmol/L Low 136-145 [facility] Comment on above: Performed By: #### 2 4323-8 ####IRVIN MUNGUIA ([id number])[facility])[address] [place] [address] Urea nitrogen [Mass/Vol] 15 mg/dL Normal 6-23 [facility] Comment on above: Performed By: #### 2 4323-8 ####IRVIN MUNGUIA ([id number])[facility])[address] [place] [address] 53748 Lactateon 04-03-2024 Lactate [Moles/Vol] 1.6 mmol/L Normal 0.4-2.0 [facility] Comment on above: Order Comment: Venip uncture immediately after or during the administration of Metamizole may lead to falsely low results. Testing should be performed immediatelyprior to Metamizole dosing. Performed By: #### 2 524-7 ####IRVIN MUNGUIA ([id number])[facility])[address] [place] [address] 64290 Lactate [Moles/Vol] 2.1 mmol/L High 0.4-2.0 [facility] Comment on above: Order Comment: Venip uncture immediately after or during the administration of Metamizole may lead to falsely low results. Testing should be performed immediatelyprior to Metamizole dosing. Performed By: #### 2 524-7 ####IRVIN MUNGUIA ([id number])[facility])[address] [place] [address] 84019 PT Coag (PPP) [Time]on 04-03 INR Coag (PPP) [Relative time] 1.7 High 0.9-1.1 [facility] Comment on above: Performed By: #### 5 902-2 ####IRVIN MUNGUIA ([id number])[facility])[address] [place] [address] 13105 Triacylglycerol lipaseon Lipase [Catalytic activity/Vol] 55 U/L Normal 9-82 [facility] Comment on above: Order Comment: Venip uncture immediately after or during the administration of Metamizole may lead to falsely low results. Testing should be performed immediately prior to Metamizole dosing. Performed By: #### 3 040-3 ####IRVIN MUNGUIA ([id number])[facility])[address] [place] [address] Urinalysis complete W Reflex Culture panel (U)on 04-03-2024 Appearance (U) Clear Normal Clear [facility] Comment on above: Performed By: #### 5 8077-9 ####IRVIN MUNGUIA ([id number])[facility])[address] [place] [address] Bilirubin (U) [Mass/Vol] Negative Normal NEGATIVE [facility] Comment on above: Performed By: #### 5 8077-9 ####IRVIN MUNGUIA ([id number])[facility])[address] [place] [address] Color (U) Light-Yellow Normal Light-Yellow , Yellow, Dark-Yellow [facility] Comment on above: Performed By: #### 5 8077-9 ####IRVIN MUNGUIA ([id number])[facility])[address] [place] [address] Epithelial cells.squamous Auto (Urine sed) [#/Area] 1-9 (SPARSE) Normal Reference range not established. [facility] Comment on above: Performed By: #### 5 8077-9 ####IRVIN MUNGUIA ([id number])[facility])[address] [place] [address] Glucose Auto test strip (U) [Mass/Vol] Normal Normal Normal [facility] Comment on above: Performed By: #### 5 8077-9 ####IRVIN MUNGUIA ([id number])[facility])[address] [place] [address] Ketones (U) [Mass/Vol] Negative Normal NEGATIVE [facility] Comment on above: Performed By: #### 5 8077-9 ####IRVIN MUNGUIA ([id number])[facility])[address] [place] [address] 24353 Leukocyte esterase Auto test strip Ql (U) Negative Normal NEGATIVE [facility] Comment on above: Performed By: #### 5 8077-9 ####IRVIN MUNGUIA ([id number])[facility])[address] [place] [address] 46767 Mucus Auto (Urine sed) [#/Area] FEW Normal Reference range not established. [facility] Comment on above: Performed By: #### 5 8077-9 ####IRVIN MUNGUIA ([id number])[facility])[address] [place] [address] 40143 Nitrite Auto test strip Ql (U) Negative Normal NEGATIVE [facility] Comment on above: Performed By: #### 5 8077-9 ####IRVIN MUNGUIA ([id number])[facility])[address] [place] [address] 65707 pH (U) 6.0 [pH] Normal 5.0, 5.5, 6.0, 6.5, 7.0, 7.5, 8.0 [facility] Comment on above: Performed By: #### 5 8077-9 ####IRVIN MUNGUIA ([id number])[facility])[address] [place] [address] 59882 Protein (U) [Mass/Vol] 10 (TRACE) Normal NEGATIVE, 10 (TRACE), 20 (TRACE) [facility] Comment on above: Performed By: #### 5 8077-9 ####IRVIN MUNGUIA ([id number])[facility])[address] [place] [address] 21563 RBC (U) [#/Vol] Negative Normal NEGATIVE [facility] Comment on above: Performed By: #### 5 8077-9 ####IRVIN MUNGUIA ([id number])[facility])[address] [place] [address] 29817 RBC Auto (Urine sed) [#/Area] NONE Normal NONE, 1-2, 3-5 [facility] Comment on above: Performed By: #### 5 8077-9 ####IRVIN MUNGUIA ([id number])[facility])[address] [place] [address] Specific gravity (U) [Rel density] 1.025 Normal 1.005-1.035 [facility] Comment on above: Performed By: #### 5 8077-9 ####IRVIN MUNGUIA ([id number])[facility])[address] [place] [address] Urobilinogen (U) [Mass/Vol] Normal Normal Normal [facility] Comment on above: Performed By: #### 5 8077-9 ####IRVIN MUNGUIA ([id number])[facility])[address] [place] [address] WBC Auto (Urine sed) [#/Area] NONE Normal 1-5, NONE [facility] Comment on above: Performed By: #### 5 8077-9 ####IRVIN MUNGUIA ([id number])[facility])[address] [place] [address] CBC W Auto Differential pane l (Bld)on 03-30-2024 Basophils (Bld) [#/Vol] 0.04 x10*3/uL Normal 0.00-0.10 [facility] Comment on above: Performed By: #### 5 7021-8 ####IRVIN MUNGUIA ([id number])[facility])[address] [place], [place] [id number] Basophils/100 WBC (Bld) 0.3 % Normal 0.0-2.0 [facility] Comment on above: Performed By: #### 5 7021-8 ####IRVIN MUNGUIA ([id number])[facility])[address] [place], [place] [id number] Eosinophils (Bld) [#/Vol] 0.08 x10*3/uL Normal 0.00-0.70 [facility] Comment on above: Performed By: #### 5 7021-8 ####IRVIN MUNGUIA ([id number])[facility])[address] [place] [address] 54173 Eosinophils/100 WBC (Bld) 0.6 % Normal 0.0-6.0 [facility] Comment on above: Performed By: #### 5 7021-8 ####IRVIN MUNGUIA ([id number])[facility])[address] [place] [address] 76528 Erythrocyte distribution width (RBC) [Ratio] 14.0 % Normal 11.5-14.5 [facility] Comment on above: Performed By: #### 5 7021-8 ####IRVIN MUNGUIA ([id number])[facility])[address] [place] [address] Hematocrit (Bld) [Volume fraction] 34.3 % Low 36.0-46.0 [facility] Comment on above: Performed By: #### 5 7021-8 ####IRVIN MUNGUIA ([id number])[facility])[address] [place] [address] 93967 Hemoglobin (Bld) [Mass/Vol] 10.4 g/dL Low 12.0-16.0 [facility] Comment on above: Performed By: #### 5 7021-8 ####IRVIN MUNGUIA ([id number])[facility])[address] [place] [address] 51372 Immature granulocytes (Bld) [#/Vol] 0.09 x10*3/uL Normal 0.00-0.70 [facility] Comment on above: Performed By: #### 5 7021-8 ####IRVIN MUNGUIA ([id number])[facility])[address] [place] [address] 03694 Immature granulocytes/100 WBC (Bld) 0.7 % Normal 0.0-0.9 [facility] Comment on above: Result Comment: Debbie ture Granulocyte Count (IG) includes promyelocytes, myelocytes and metamyelocytes but does not include bands. Percent differential counts (%) should be interpreted in the context of the absolute cell counts (cells/UL). Performed By: #### 5 7021-8 ####IRVIN MUNGUIA ([id number])[facility])[address] [place] [address] 66770 Lymphocytes (Bld) [#/Vol] 2.47 x10*3/uL Normal 1.20-4.80 [facility] Comment on above: Performed By: #### 5 7021-8 ####IRVIN MUNGUIA ([id number])[facility])[address] [place] [address] 58017 Lymphocytes/100 WBC (Bld) 19.7 % Normal 13.0-44.0 [facility] Comment on above: Performed By: #### 5 7021-8 ####IRVIN MUNGUIA ([id number])[facility])[address] [place] [address] 57784 MCH (RBC) [Entitic mass] 26.0 pg Normal 26.0-34.0 [facility] Comment on above: Performed By: #### 5 7021-8 ####IRVIN MUNGUIA ([id number])[facility])[address] [place] [address] 01595 MCHC (RBC) [Mass/Vol] 30.3 g/dL Low 32.0-36.0 [facility] Comment on above: Performed By: #### 5 7021-8 ####IRVIN MUNGUIA ([id number])[facility])[address] [place] [address] 66116 MCV (RBC) [Entitic vol] 86 fL Normal 80-100 [facility] Comment on above: Performed By: #### 5 7021-8 ####IRVIN MUNGUIA ([id number])[facility])[address] [place] [address] 15710 Monocytes (Bld) [#/Vol] 0.64 x10*3/uL Normal 0.10-1.00 [facility] Comment on above: Performed By: #### 5 7021-8 ####IRVIN MUNGUIA ([id number])[facility])[address] [place] [address] 62869 Monocytes/100 WBC (Bld) 5.1 % Normal 2.0-10.0 [facility] Comment on above: Performed By: #### 5 7021-8 ####IRVIN MUNGUIA ([id number])[facility])[address] [place] [address] 64123 Neutrophils (Bld) [#/Vol] 9.19 x10*3/uL High 1.20-7.70 [facility] Comment on above: Result Comment: Perc ent differential counts (%) should be interpreted in the context of the absolute cell counts (cells/uL). Performed By: #### 5 7021-8 ####IRVIN MUNGUIA ([id number])[facility])[address] [place] [address] 11837 Neutrophils/100 WBC (Bld) 73.6 % Normal 40.0-80.0 [facility] Comment on above: Performed By: #### 5 7021-8 ####IRVIN MUNGUIA ([id number])[facility])[address] [place] [address] 47701 Nucleated RBC/100 WBC (Bld) [Ratio] 0.0 /100 WBCs Normal 0.0-0.0 [facility] Comment on above: Performed By: #### 5 7021-8 ####IRVIN MUNGUIA ([id number])[facility])[address] [place] [address] 68379 Platelets (Bld) [#/Vol] 332 x10*3/uL Normal 150-450 [facility] Comment on above: Result Comment: Plat elet count verified by smear review. Performed By: #### 5 7021-8 ####IRVIN MUNGUIA ([id number])[facility])[address] [place] [address] 06469 RBC (Bld) [#/Vol] 4.00 x10*6/uL Normal 4.00-5.20 [facility] Comment on above: Performed By: #### 5 7021-8 ####IRVIN MUNGUIA ([id number])[facility] [place] [address] WBC (Bld) [#/Vol] 12.5 x10*3/uL High 4.4-11.3 [facility] Comment on above: Performed By: #### 5 7021-8 ####IRVIN MUNGUIA ([id number])[facility])[address] [place] [address] Comprehensive metabolic 2000 panelon 03-30-2024 Albumin BCP dye [Mass/Vol] 3.8 g/dL Normal 3.4-5.0 [facility] Comment on above: Performed By: #### 2 4323-8 ####IRVIN MUNGUIA ([id number])[facility])[address] [place] [address] ALP [Catalytic activity/Vol] 140 U/L High 33-110 [facility] Comment on above: Performed By: #### 2 4323-8 ####IRVIN MUNGUIA ([id number])[facility])[address] [place] [address] 69421 ALT With P-5'-P [Catalytic activity/Vol] 24 U/L Normal 7-45 [facility] Comment on above: Result Comment: Evelyn ents treated with Sulfasalazine may generate falsely decreased results for ALT. Performed By: #### 2 4323-8 ####IRVIN MUNGUIA ([id number])[facility])[address] [place] [address] 71972 Anion gap [Moles/Vol] 15 mmol/L Normal 10-20 [facility] Comment on above: Performed By: #### 2 4323-8 ####IRVIN MUNGUIA ([id number])[facility])[address] [place] [address] 85562 AST With P-5'-P [Catalytic activity/Vol] 19 U/L Normal 9-39 [facility] Comment on above: Performed By: #### 2 4323-8 ####IRVIN MUNGUIA ([id number])[facility] [place] [address] Bilirubin [Mass/Vol] 0.3 mg/dL Normal 0.0-1.2 [facility] Comment on above: Performed By: #### 2 4323-8 ####IRVIN MUNGUIA ([id number])[facility])[address] [place] [address] 69982 Calcium [Mass/Vol] 8.7 mg/dL Normal 8.6-10.3 [facility] Comment on above: Performed By: #### 2 4323-8 ####IRVIN MUNGUIA ([id number])[facility])[address] [place] [address] 35978 Chloride [Moles/Vol] 101 mmol/L Normal 98-107 [facility] Comment on above: Performed By: #### 2 4323-8 ####IRVIN MUNGUIA ([id number])[facility])[address] [place] [address] 59580 CO2 [Moles/Vol] 23 mmol/L Normal 21-32 [facility] Comment on above: Performed By: #### 2 4323-8 ####IRVIN MUNGUIA ([id number])[facility])[address] [place] [address] 30887 Creatinine [Mass/Vol] 0.72 mg/dL Normal 0.50-1.05 [facility] Comment on above: Performed By: #### 2 4323-8 ####IRVIN MUNGUIA ([id number])[facility])[address] [place] [address] 12458 GFR/1.73 sq M.predicted MDRD (S/P/Bld) [Vol rate/Area] mL/min/{1.73_m2} Normal >60 [facility] Comment on above: Result Comment: Calc ulations of estimated GFR are performed using the 2020 CKD-EPI Study Refit equation without the race variable for the IDMS-Traceable creatinine methods.https://jasn.asnjournals.org/content/early/ N.9980487394 Performed By: #### 2 4323-8 ####IRVIN MUNGUIA ([id number])[facility])[address] [place] [address] 63101 Glucose [Mass/Vol] 173 mg/dL High 74-99 [facility] Comment on above: Performed By: #### 2 4323-8 ####IRVIN MUNGUIA ([id number])[facility] [place] [address] 20330 Potassium [Moles/Vol] 3.5 mmol/L Normal 3.5-5.3 [facility] Comment on above: Performed By: #### 2 4323-8 ####IRVIN MUNGUIA ([id number])[facility])[address] [place] [address] 38864 Protein [Mass/Vol] 7.4 g/dL Normal 6.4-8.2 [facility] Comment on above: Performed By: #### 2 4323-8 ####IRVIN MUNGUIA ([id number])[facility])[address] [place] [address] 39184 Sodium [Moles/Vol] 135 mmol/L Low 136-145 [facility] Comment on above: Performed By: #### 2 4323-8 ####IRVIN MUGNUIA ([id number])[facility] [place] [address] 48838 Urea nitrogen [Mass/Vol] 12 mg/dL Normal 6-23 [facility] Comment on above: Performed By: #### 2 4323-8 ####IRVIN MUNGUIA ([id number])[facility] [place] [address] 32008 Lactateon 03-30-2024 Lactate [Moles/Vol] 1.6 mmol/L Normal 0.4-2.0 [facility] Comment on above: Order Comment: Venip uncture immediately after or during the administration of Metamizole may lead to falsely low results. Testing should be performed immediatelyprior to Metamizole dosing. Performed By: #### 2 524-7 ####IRVIN MUNGUIA ([id number])[facility])[address] [place] [address] 92189 Lactate [Moles/Vol] 2.5 mmol/L High 0.4-2.0 [facility] Comment on above: Order Comment: Venip uncture immediately after or during the administration of Metamizole may lead to falsely low results. Testing should be performed immediatelyprior to Metamizole dosing. Performed By: #### 2 524-7 ####IRVIN MUNGUIA ([id number])[facility] [place] [address] 59533 Triacylglycerol lipaseon Lipase [Catalytic activity/Vol] 57 U/L Normal 9-82 [facility] Comment on above: Order Comment: Venip uncture immediately after or during the administration of Metamizole may lead to falsely low results. Testing should be performed immediately prior to Metamizole dosing. Performed By: #### 3 040-3 ####IRVIN MUNGUIA ([id number])[facility] [place] [address] 20556 CBC W Auto Differential pane l (Bld)on 03-24-2024 Basophils (Bld) [#/Vol] 0.03 x10*3/uL Normal 0.00-0.10 [facility] Comment on above: Performed By: #### 5 7021-8 ####ANDI Cotter ([id number])[facility])[address] [place] [address] Basophils/100 WBC (Bld) 0.7 % Normal 0.0-2.0 [facility] Comment on above: Performed By: #### 5 7021-8 ####ANDI Cotter ([id number])[facility] ([facility])[address] [place] [address] Eosinophils (Bld) [#/Vol] 0.10 x10*3/uL Normal 0.00-0.70 [facility] Comment on above: Performed By: #### 5 7021-8 ####ANDI Cotter ([id number])[facility] ([facility])[id number] [place] [address] 91822 Eosinophils/100 WBC (Bld) 2.2 % Normal 0.0-6.0 [facility] Comment on above: Performed By: #### 5 7021-8 ####ANDI Cotter ([id number])[facility] ([facility])[id number] [place] [address] 84205 Erythrocyte distribution width (RBC) [Ratio] 14.2 % Normal 11.5-14.5 [facility] Comment on above: Performed By: #### 5 7021-8 ####ANDI Cotter ([id number])[facility] ([facility])[address] [place] [address]100 Hematocrit (Bld) [Volume fraction] 43.5 % Normal 36.0-46.0 [facility] Comment on above: Performed By: #### 5 7021-8 ####ANDI Cotter ([id number])[facility] ([facility])[id number] [place] [address] 73984 Hemoglobin (Bld) [Mass/Vol] 13.4 g/dL Normal 12.0-16.0 [facility] Comment on above: Performed By: #### 5 7021-8 ####ANDI Cotter ([id number])[facility] ([facility])[id number] [place] [address] 72058 Immature granulocytes (Bld) [#/Vol] 0.07 x10*3/uL Normal 0.00-0.70 [facility] Comment on above: Performed By: #### 5 7021-8 ####ANDI CHAUDHARY L ([id number])[facility] ([facility])[address] [place] [address] 20233 Immature granulocytes/100 WBC (Bld) 1.5 % High 0.0-0.9 [facility] Comment on above: Result Comment: Debbie ture Granulocyte Count (IG) includes promyelocytes, myelocytes and metamyelocytes but does not include bands. Percent differential counts (%) should be interpreted in the context of the absolute cell counts (cells/UL). Performed By: #### 5 7021-8 ####ANDI Cotter ([id number])[facility] ([facility])[address] [place] [address] Lymphocytes (Bld) [#/Vol] 1.16 x10*3/uL Low 1.20-4.80 [facility] Comment on above: Performed By: #### 5 7021-8 ####ANDI Cotter ([id number])[facility] ([facility])[address] [place] [address] Lymphocytes/100 WBC (Bld) 25.6 % Normal 13.0-44.0 [facility] Comment on above: Performed By: #### 5 7021-8 ####ANDI Cotter ([id number])[facility] ([facility])[address] [place] [address] MCH (RBC) [Entitic mass] 26.3 pg Normal 26.0-34.0 [facility] Comment on above: Performed By: #### 5 7021-8 ####ANDI Cotter ([id number])[facility] ([facility])[address] [place] [address] MCHC (RBC) [Mass/Vol] 30.8 g/dL Low 32.0-36.0 [facility] Comment on above: Performed By: #### 5 7021-8 ####ANDI Cotter ([id number])[facility])[address] [place] [address] MCV (RBC) [Entitic vol] 86 fL Normal 80-100 [facility] Comment on above: Performed By: #### 5 7021-8 ####ANDI Cotter ([id number])[facility])[address] [place] [address] Monocytes (Bld) [#/Vol] 0.28 x10*3/uL Normal 0.10-1.00 [facility] Comment on above: Performed By: #### 5 7021-8 ####ANDI Cotter ([id number])[facility])[address] [place] [address] Monocytes/100 WBC (Bld) 6.2 % Normal 2.0-10.0 [facility] Comment on above: Performed By: #### 5 7021-8 ####ANDI Cotter ([id number])[facility])[address] [place] [address] Neutrophils (Bld) [#/Vol] 2.89 x10*3/uL Normal 1.20-7.70 [facility] Comment on above: Result Comment: Perc ent differential counts (%) should be interpreted in the context of the absolute cell counts (cells/uL). Performed By: #### 5 7021-8 ####ANDI Cotter ([id number])[facility])[address] [place] [address] Neutrophils/100 WBC (Bld) 63.8 % Normal 40.0-80.0 [facility] Comment on above: Performed By: #### 5 7021-8 ####ANDI Cotter ([id number])[facility])[address] [place] [address] Nucleated RBC/100 WBC (Bld) [Ratio] 0.0 /100 WBCs Normal 0.0-0.0 [facility] Comment on above: Performed By: #### 5 7021-8 ####ANDI CHAUDHARY L ([id number])[facility])[address] [place] [address] Platelets (Bld) [#/Vol] 190 x10*3/uL Normal 150-450 [facility] Comment on above: Performed By: #### 5 7021-8 ####ANDI Cotter ([id number])[facility])[address] [place] [address] RBC (Bld) [#/Vol] 5.09 x10*6/uL Normal 4.00-5.20 [facility] Comment on above: Performed By: #### 5 7021-8 ####ANDI Cotter ([id number])[facility])[address] [place] [address] WBC (Bld) [#/Vol] 4.5 x10*3/uL Normal 4.4-11.3 [facility] Comment on above: Performed By: #### 5 7021-8 ####ANDI Cotter ([id number])[facility])[address] [place] [address] Comprehensive metabolic 2000 panelon 03-24-2024 Albumin BCP dye [Mass/Vol] 3.6 g/dL Normal 3.4-5.0 [facility] Comment on above: Performed By: #### 2 4323-8 ####ANDI Cotter ([id number])[facility])[address] [place] [address] ALP [Catalytic activity/Vol] 166 U/L High 33-110 [facility] Comment on above: Performed By: #### 2 4323-8 ####ANDI Cotter ([id number])[facility])[address] [place] [address] ALT With P-5'-P [Catalytic activity/Vol] 35 U/L Normal 7-45 [facility] Comment on above: Result Comment: Evelyn ents treated with Sulfasalazine may generate falsely decreased results for ALT. Performed By: #### 2 4323-8 ####ANDI Cotter ([id number])[facility])[address] [place] [address] Anion gap [Moles/Vol] 12 mmol/L Normal 10-20 [facility] Comment on above: Performed By: #### 2 4323-8 ####ANDI Cotter ([id number])[facility])[address] [place] [address] AST With P-5'-P [Catalytic activity/Vol] 13 U/L Normal 9-39 [facility] Comment on above: Performed By: #### 2 4323-8 ####ANDI Cotter ([id number])[facility])[address] [place] [address] Bilirubin [Mass/Vol] 0.3 mg/dL Normal 0.0-1.2 [facility] Comment on above: Performed By: #### 2 4323-8 ####ANDI Cotter ([id number])[facility])[address] [place] [address] Calcium [Mass/Vol] 9.2 mg/dL Normal 8.6-10.6 [facility] Comment on above: Performed By: #### 2 4323-8 ####ANDI Cotter ([id number])[facility])[address] [place] [address] Chloride [Moles/Vol] 101 mmol/L Normal 98-107 [facility] Comment on above: Performed By: #### 2 4323-8 ####ANDI Cotter ([id number])[facility])[address] [place] [address] CO2 [Moles/Vol] 26 mmol/L Normal 21-32 [facility] Comment on above: Performed By: #### 2 4323-8 ####ANDI Cotter ([id number])[facility])[address] [place] [address] Creatinine [Mass/Vol] 0.54 mg/dL Normal 0.50-1.05 [facility] Comment on above: Performed By: #### 2 4323-8 ####ANDI Cotter ([id number])[facility])[address] [place] [address] GFR/1.73 sq M.predicted MDRD (S/P/Bld) [Vol rate/Area] mL/min/{1.73_m2} Normal >60 [facility] Comment on above: Result Comment: Calc ulations of estimated GFR are performed using the 2020 CKD-EPI Study Refit equation without the race variable for the IDMS-Traceable creatinine methods.https://jasn.asnjournals.org/content// N.3568580641 Performed By: #### 2 4323-8 ####ANDI MADRIDTZER L ([id number])[facility])[address] [place] [address] Glucose [Mass/Vol] 164 mg/dL High 74-99 [facility] Comment on above: Performed By: #### 2 4323-8 ####ANDI RAJPUTMOTZER L ([id number])[facility])[address] [place] [address] Potassium [Moles/Vol] 3.6 mmol/L Normal 3.5-5.3 [facility] Comment on above: Performed By: #### 2 4323-8 ####ANDI SCHMOTZER L ([id number])[facility])[address] [place] [address] Protein [Mass/Vol] 6.9 g/dL Normal 6.4-8.2 [facility] Comment on above: Performed By: #### 2 4323-8 ####ANDI SCHMOTZER L ([id number])[facility])[address]254 [place] [address] Sodium [Moles/Vol] 135 mmol/L Low 136-145 [facility] Comment on above: Performed By: #### 2 4323-8 ####ANDI SCHMOTZER L ([id number])[facility])[address] [place] [address] Urea nitrogen [Mass/Vol] 11 mg/dL Normal 6-23 [facility] Comment on above: Performed By: #### 2 4323-8 ####ANDI SCHMOTZER L ([id number])[facility])[address] [place] [address] Glucose Test strip manual (B ld) [Mass/Vol]on 03-24-2024 Glucose [Mass/Vol] 150 mg/dL High 74-99 [facility] Comment on above: Performed By: #### 2 341-6 ####ANDI Cotter ([id number])[facility])[address] [place] [address] Glucose [Mass/Vol] 192 mg/dL High 74-99 [facility] Comment on above: Performed By: #### 2 341-6 ####ANDI Cotter ([id number])[facility])[address] [place] [address] Heparin.unfractionatedon Heparin unfractionated Chromogenic method Qn (PPP) 0.4 IU/mL Normal See Comment Below for Therapeutic Ranges [facility] Comment on above: Order Comment: Obtai n 4 hours after any Heparin dosage change. Nursing to release order.The therapeutic reference range for UFH may be either 0.3-0.6 IU/mL or 0.3-0.7 IU/mL based on the clinical setting for anticoagulant therapy and the associated nomogram used. For Heparin dosing guidelines based on clinical scenario and Heparin Assay results, please refer to local Pharmacy and the [facility] Guidelines for Anticoagulation Therapy available on the [facility] intranet at: [email or web address]_[email or web address] Performed By: #### 3 274-8 ####ANDI Cotter ([id number])[facility])[address] [place] [address] Magnesiumon 03-24-2024 Magnesium [Mass/Vol] 1.82 mg/dL Normal 1.60-2.40 [facility] Comment on above: Performed By: #### 1 9123-9 ####ANDI Cotter ([id number])[facility])[address] [place] [address] PT and aPTT panel Coag (PPP) on 03-24-2024 aPTT Coag (PPP) [Time] 37 s Normal 27-38 [facility] Comment on above: Order Comment: The A PTT is no longer used for monitoring Unfractionated Heparin Therapy. For monitoring Heparin Therapy, use the Heparin Assay. Performed By: #### 3 4529-8 ####ANDI Cotter ([id number])[facility])[address] [place] [address] INR Coag (PPP) [Relative time] 1.3 High 0.9-1.1 [facility] Comment on above: Order Comment: The A PTT is no longer used for monitoring Unfractionated Heparin Therapy. For monitoring Heparin Therapy, use the Heparin Assay. Performed By: #### 3 4529-8 ####ANDI Cotter ([id number])[facility])[address] [place] [address] PT Coag (PPP) [Time] 14.2 s High 9.8-12.8 [facility] Comment on above: Order Comment: The A PTT is no longer used for monitoring Unfractionated Heparin Therapy. For monitoring Heparin Therapy, use the Heparin Assay. Performed By: #### 3 4529-8 ####ANDI Cotter ([id number])[facility])[address] [place] [address] Phosphateon 03-24-2024 Phosphate [Mass/Vol] 4.6 mg/dL Normal 2.5-4.9 [facility] Comment on above: Result Comment: The performance characteristics of phosphorus testing in heparinized plasma have been validated by the individual laboratory site where testing is performed. Testing on heparinized plasma is not approved by the FDA; however, such approval is not necessary. Performed By: #### 2 777-1 ####ANDI Cotter ([id number])[facility])[address] [place] [address] CBC W Auto Differential pane l (Bld)on 03-23-2024 Basophils (Bld) [#/Vol] 0.05 x10*3/uL Normal 0.00-0.10 [facility] Comment on above: Performed By: #### 5 7021-8 ####ANDI Cotter ([id number])[facility])[address] [place] [address] Basophils/100 WBC (Bld) 0.6 % Normal 0.0-2.0 [facility] Comment on above: Performed By: #### 5 7021-8 ####ANDI CHAUDHARY L ([id number])[facility])[address] [place] [address] Eosinophils (Bld) [#/Vol] 0.20 x10*3/uL Normal 0.00-0.70 [facility] Comment on above: Performed By: #### 5 7021-8 ####ANDI CHAUDHARY L ([id number])[facility])[address] [place] [address] Eosinophils/100 WBC (Bld) 2.2 % Normal 0.0-6.0 [facility] Comment on above: Performed By: #### 5 7021-8 ####ANDI Cotter ([id number])[facility])[address] [place] [address] Erythrocyte distribution width (RBC) [Ratio] 14.2 % Normal 11.5-14.5 [facility] Comment on above: Performed By: #### 5 7021-8 ####ANDI Cotter ([id number])[facility])[address] [place] [address] Hematocrit (Bld) [Volume fraction] 32.6 % Low 36.0-46.0 [facility] Comment on above: Performed By: #### 5 7021-8 ####ANDI CHAUDHARY L ([id number])[facility])[address] [place] [address] Hemoglobin (Bld) [Mass/Vol] 10.2 g/dL Low 12.0-16.0 [facility] Comment on above: Performed By: #### 5 7021-8 ####ANDI Cotter ([id number])[facility])[address]387 [place] [address] Immature granulocytes (Bld) [#/Vol] 0.07 x10*3/uL Normal 0.00-0.70 [facility] Comment on above: Performed By: #### 5 7021-8 ####ANDI Cotter ([id number])[facility])[address] [place] [address] Immature granulocytes/100 WBC (Bld) 0.8 % Normal 0.0-0.9 [facility] Comment on above: Result Comment: Debbie ture Granulocyte Count (IG) includes promyelocytes, myelocytes and metamyelocytes but does not include bands. Percent differential counts (%) should be interpreted in the context of the absolute cell counts (cells/UL). Performed By: #### 5 7021-8 ####ANDI Cotter ([id number])[facility])[address] [place] [address] Lymphocytes (Bld) [#/Vol] 2.00 x10*3/uL Normal 1.20-4.80 [facility] Comment on above: Performed By: #### 5 7021-8 ####ANDI Cotter ([id number])[facility])[address] [place] [address] Lymphocytes/100 WBC (Bld) 22.1 % Normal 13.0-44.0 [facility] Comment on above: Performed By: #### 5 7021-8 ####ANDI Cotter ([id number])[facility])[address] [place] [address] MCH (RBC) [Entitic mass] 27.2 pg Normal 26.0-34.0 [facility] Comment on above: Performed By: #### 5 7021-8 ####ANDI Cotter ([id number])[facility])[address] [place] [address] MCHC (RBC) [Mass/Vol] 31.3 g/dL Low 32.0-36.0 [facility] Comment on above: Performed By: #### 5 7021-8 ####ANDI Cotter ([id number])[facility])[address] [place] [address] MCV (RBC) [Entitic vol] 87 fL Normal 80-100 [facility] Comment on above: Performed By: #### 5 7021-8 ####ANDI Cotter ([id number])[facility])[address] [place] [address] Monocytes (Bld) [#/Vol] 0.58 x10*3/uL Normal 0.10-1.00 [facility] Comment on above: Performed By: #### 5 7021-8 ####ANDI Cotter ([id number])[facility])[address] [place] [address] Monocytes/100 WBC (Bld) 6.4 % Normal 2.0-10.0 [facility] Comment on above: Performed By: #### 5 7021-8 ####ANDI Cotter ([id number])[facility])[address] [place] [address] Neutrophils (Bld) [#/Vol] 6.16 x10*3/uL Normal 1.20-7.70 [facility] Comment on above: Result Comment: Perc ent differential counts (%) should be interpreted in the context of the absolute cell counts (cells/uL). Performed By: #### 5 7021-8 ####ANDI Cotter ([id number])[facility])[address]163 [place] [address] Neutrophils/100 WBC (Bld) 67.9 % Normal 40.0-80.0 [facility] Comment on above: Performed By: #### 5 7021-8 ####ANDI RAJPUTMOFIDELINA Cotter ([id number])[facility])[address] [place] [address] Nucleated RBC/100 WBC (Bld) [Ratio] 0.0 /100 WBCs Normal 0.0-0.0 [facility] Comment on above: Performed By: #### 5 7021-8 ####ANDI Cotter ([id number])[facility])[address] [place] [address] Platelets (Bld) [#/Vol] 291 x10*3/uL Normal 150-450 [facility] Comment on above: Performed By: #### 5 7021-8 ####ANDI Cotter ([id number])[facility])[address]365 [place] [address] RBC (Bld) [#/Vol] 3.75 x10*6/uL Low 4.00-5.20 [facility] Comment on above: Performed By: #### 5 7021-8 ####ANDI Cotter ([id number])[facility])[address] [place] [address] WBC (Bld) [#/Vol] 9.1 x10*3/uL Normal 4.4-11.3 [facility] Comment on above: Performed By: #### 5 7021-8 ####ANDI Cotter ([id number])[facility])[address] [place] [address] Comprehensive metabolic 2000 panelon 03-23-2024 Albumin BCP dye [Mass/Vol] 3.6 g/dL Normal 3.4-5.0 [facility] Comment on above: Performed By: #### 2 4323-8 ####ANDI Cotter ([id number])[facility])[address]23 [place] [address] ALP [Catalytic activity/Vol] 195 U/L High 33-110 [facility] Comment on above: Performed By: #### 2 4323-8 ####ANDI Cotter ([id number])[facility])[address] [place] [address] ALT With P-5'-P [Catalytic activity/Vol] 49 U/L High 7-45 [facility] Comment on above: Result Comment: Evelyn ents treated with Sulfasalazine may generate falsely decreased results for ALT. Performed By: #### 2 4323-8 ####ANDI Cotter ([id number])[facility])[address]210 [place] [address] Anion gap [Moles/Vol] 18 mmol/L Normal 10-20 [facility] Comment on above: Performed By: #### 2 4323-8 ####ANDI Cotter ([id number])[facility])[address]38 [place] [address] AST With P-5'-P [Catalytic activity/Vol] 17 U/L Normal 9-39 [facility] Comment on above: Performed By: #### 2 4323-8 ####ANDI Cotter ([id number])[facility])[address]68 [place] [address] Bilirubin [Mass/Vol] 0.3 mg/dL Normal 0.0-1.2 [facility] Comment on above: Performed By: #### 2 4323-8 ####ANDI Cotter ([id number])[facility])[address]299 [place] [address] Calcium [Mass/Vol] 9.4 mg/dL Normal 8.6-10.6 [facility] Comment on above: Performed By: #### 2 4323-8 ####ANDI Cotter ([id number])[facility])[address]25 [place] [address] Chloride [Moles/Vol] 96 mmol/L Low 98-107 [facility] Comment on above: Performed By: #### 2 4323-8 ####ANDI Cotter ([id number])[facility])[address] [place] [address] CO2 [Moles/Vol] 23 mmol/L Normal 21-32 [facility] Comment on above: Performed By: #### 2 4323-8 ####ANDI Cotter ([id number])[facility])[address]372 [place] [address] Creatinine [Mass/Vol] 0.61 mg/dL Normal 0.50-1.05 [facility] Comment on above: Performed By: #### 2 4323-8 ####ANDI Cotter ([id number])[facility])[address] [place] [address] GFR/1.73 sq M.predicted MDRD (S/P/Bld) [Vol rate/Area] mL/min/{1.73_m2} Normal >60 [facility] Comment on above: Result Comment: Calc ulations of estimated GFR are performed using the 2020 CKD-EPI Study Refit equation without the race variable for the IDMS-Traceable creatinine methods.https://jasn.asnjournals.org/content/early/ N.6212741055 Performed By: #### 2 4323-8 ####ANDI Cotter ([id number])[facility])[address] [place] [address] Glucose [Mass/Vol] 139 mg/dL High 74-99 [facility] Comment on above: Performed By: #### 2 4323-8 ####ANDI Cotter ([id number])[facility])[address]98 [place] [address] Potassium [Moles/Vol] 3.7 mmol/L Normal 3.5-5.3 [facility] Comment on above: Performed By: #### 2 4323-8 ####ANDI Cotter ([id number])[facility])[address]87 [place] [address] Protein [Mass/Vol] 7.4 g/dL Normal 6.4-8.2 [facility] Comment on above: Performed By: #### 2 4323-8 ####ANDI Cotter ([id number])[facility])[address]70 [place] [address] Sodium [Moles/Vol] 133 mmol/L Low 136-145 [facility] Comment on above: Performed By: #### 2 4323-8 ####ANDI Cotter ([id number])[facility])[address]97 [place] [address] Urea nitrogen [Mass/Vol] 12 mg/dL Normal 6-23 [facility] Comment on above: Performed By: #### 2 4323-8 ####ANDI Cotter ([id number])[facility])[address] [place] [address] Glucose Test strip manual (B ld) [Mass/Vol]on 03-23-2024 Glucose [Mass/Vol] 154 mg/dL High 74-99 [facility] Comment on above: Performed By: #### 2 341-6 ####ANDI Cotter ([id number])[facility])[address]168 [place] [address] Glucose [Mass/Vol] 155 mg/dL High 74-99 [facility] Comment on above: Performed By: #### 2 341-6 ####ANID Cotter ([id number])[facility])[address] [place] [address] Glucose [Mass/Vol] 139 mg/dL High 74-99 [facility] Comment on above: Performed By: #### 2 341-6 ####ANDI Cotter ([id number])[facility])[address]49 [place] [address] Glucose [Mass/Vol] 138 mg/dL High 74-99 [facility] Comment on above: Performed By: #### 2 341-6 ####ANDI Cotter ([id number])[facility])[address]41 [place] [address] Heparin.unfractionatedon Heparin unfractionated Chromogenic method Qn (PPP) 0.5 IU/mL Normal See Comment Below for Therapeutic Ranges [facility] Comment on above: Order Comment: When two [...] results, please refer to local Pharmacy and [facility] Guidelines for Anticoagulation Therapy available on the [facility] intranet at: [email or web address] Performed By: #### 3 274-8 ####ANDI Cotter ([id number])[facility])[address] [place] [address] Heparin unfractionated Chromogenic method Qn (PPP) 0.1 IU/mL Normal See Comment Below for Therapeutic Ranges [facility] Comment on above: Order Comment: When two [...] please refer to local Pharmacy and the [facility] Guidelines for Anticoagulation Therapy available on the [facility] intranet at: [email or web address] Performed By: #### 3 274-8 ####ANDI Cotter ([id number])[facility])[address] [place] [address] Magnesiumon 03-23-2024 Magnesium [Mass/Vol] 1.74 mg/dL Normal 1.60-2.40 [facility] Comment on above: Performed By: #### 1 9123-9 ####ANDI Cotter ([id number])[facility])[address] [place] [address] PT and aPTT panel Coag (PPP) on 03-23-2024 aPTT Coag (PPP) [Time] 39 s High 27-38 [facility] Comment on above: Order Comment: The A PTT is no longer used for monitoring Unfractionated Heparin Therapy. For monitoring Heparin Therapy, use the Heparin Assay. Performed By: #### 3 4529-8 ####ANDI Cotter ([id number])[facility])[address] [place] [address] INR Coag (PPP) [Relative time] 1.1 Normal 0.9-1.1 [facility] Comment on above: Order Comment: The A PTT is no longer used for monitoring Unfractionated Heparin Therapy. For monitoring Heparin Therapy, use the Heparin Assay. Performed By: #### 3 4529-8 ####ANDI Cotter ([id number])[facility])[address] [place] [address] PT Coag (PPP) [Time] 12.6 s Normal 9.8-12.8 [facility] Comment on above: Order Comment: The A PTT is no longer used for monitoring Unfractionated Heparin Therapy. For monitoring Heparin Therapy, use the Heparin Assay. Performed By: #### 3 4529-8 ####ANDI Cotter ([id number])[facility])[address] [place] [address] Phosphateon 03-23-2024 Phosphate [Mass/Vol] 5.4 mg/dL High 2.5-4.9 [facility] Comment on above: Result Comment: The performance characteristics of phosphorus testing in heparinized plasma have been validated by the individual laboratory site where testing is performed. Testing on heparinized plasma is not approved by the FDA; however, such approval is not necessary. Performed By: #### 2 777-1 ####ANDI Cotter ([id number])[facility] ([facility])[address] [place] [address] CBC W Auto Differential pane l (Bld)on 03-22-2024 Basophils (Bld) [#/Vol] 0.02 x10*3/uL Normal 0.00-0.10 [facility] Comment on above: Performed By: #### 5 7021-8 ####ANDI Cotetr ([id number])[facility] ([facility])[id number] [place] [id number] Basophils/100 WBC (Bld) 0.2 % Normal 0.0-2.0 [facility] Comment on above: Performed By: #### 5 7021-8 ####ANDI Cotter ([id number])[facility] ([facility])[address] [place] [address]01 Eosinophils (Bld) [#/Vol] 0.06 x10*3/uL Normal 0.00-0.70 [facility] Comment on above: Performed By: #### 5 7021-8 ####ANDI CHAUDHARY L ([id number])[facility])[address] [place] [address] 27825 Eosinophils/100 WBC (Bld) 0.6 % Normal 0.0-6.0 [facility] Comment on above: Performed By: #### 5 7021-8 ####ANDI Cotter ([id number])[facility])[address] [place] [address] 28467 Erythrocyte distribution width (RBC) [Ratio] 13.8 % Normal 11.5-14.5 [facility] Comment on above: Performed By: #### 5 7021-8 ####ANDI Cotter ([id number])[facility])[address] [place] [address] 67886 Hematocrit (Bld) [Volume fraction] 31.0 % Low 36.0-46.0 [facility] Comment on above: Performed By: #### 5 7021-8 ####ANDI Cotter ([id number])[facility])[address]87 [place] [address] Hemoglobin (Bld) [Mass/Vol] 9.8 g/dL Low 12.0-16.0 [facility] Comment on above: Performed By: #### 5 7021-8 ####ANDI Cotter ([id number])[facility])[address]486 [place] [address] Immature granulocytes (Bld) [#/Vol] 0.10 x10*3/uL Normal 0.00-0.70 [facility] Comment on above: Performed By: #### 5 7021-8 ####ANDI Cotter ([id number])[facility])[address]366 [place] [address] Immature granulocytes/100 WBC (Bld) 1.0 % High 0.0-0.9 [facility] Comment on above: Result Comment: Debbie ture Granulocyte Count (IG) includes promyelocytes, myelocytes and metamyelocytes but does not include bands. Percent differential counts (%) should be interpreted in the context of the absolute cell counts (cells/UL). Performed By: #### 5 7021-8 ####ANDI Cotter ([id number])[facility])[address]60 [place] [address] Lymphocytes (Bld) [#/Vol] 2.27 x10*3/uL Normal 1.20-4.80 [facility] Comment on above: Performed By: #### 5 7021-8 ####ANDI Cotter ([id number])[facility])[address]47 [place] [address] Lymphocytes/100 WBC (Bld) 22.8 % Normal 13.0-44.0 [facility] Comment on above: Performed By: #### 5 7021-8 ####ANDI Cotter ([id number])[facility])[address]16 [place] [address] MCH (RBC) [Entitic mass] 26.6 pg Normal 26.0-34.0 [facility] Comment on above: Performed By: #### 5 7021-8 ####ANDI CHAUDHARY L ([id number])[facility])49484 [place] [address] MCHC (RBC) [Mass/Vol] 31.6 g/dL Low 32.0-36.0 [facility] Comment on above: Performed By: #### 5 7021-8 ####ANDI RAJPUTMOFIDELINA L ([id number])[facility])[address]80 [place] [address] MCV (RBC) [Entitic vol] 84 fL Normal 80-100 [facility] Comment on above: Performed By: #### 5 7021-8 ####ANDI Cotter ([id number])[facility])[address] [place] [address] 67374 Monocytes (Bld) [#/Vol] 0.43 x10*3/uL Normal 0.10-1.00 [facility] Comment on above: Performed By: #### 5 7021-8 ####ANDI RAJPUTMOFIDELINA L ([id number])[facility])[address]15 [place] [address] Monocytes/100 WBC (Bld) 4.3 % Normal 2.0-10.0 [facility] Comment on above: Performed By: #### 5 7021-8 ####ANDI CHAUDHARY L ([id number])[facility])[address] [place] [address] 58299 Neutrophils (Bld) [#/Vol] 7.07 x10*3/uL Normal 1.20-7.70 [facility] Comment on above: Result Comment: Perc ent differential counts (%) should be interpreted in the context of the absolute cell counts (cells/uL). Performed By: #### 5 7021-8 ####ANDI RAJPUTMOTZER L ([id number])[facility])[address]02 [place] [address] Neutrophils/100 WBC (Bld) 71.1 % Normal 40.0-80.0 [facility] Comment on above: Performed By: #### 5 7021-8 ####ANDI Cotter ([id number])[facility])[address] [place] [address] 01319 Nucleated RBC/100 WBC (Bld) [Ratio] 0.0 /100 WBCs Normal 0.0-0.0 [facility] Comment on above: Performed By: #### 5 7021-8 ####ANDI Cotter ([id number])[facility])[address] [place] [address] 11699 Platelets (Bld) [#/Vol] 242 x10*3/uL Normal 150-450 [facility] Comment on above: Performed By: #### 5 7021-8 ####ANDI Cotter ([id number])[facility])[address] [place] [address] 14502 RBC (Bld) [#/Vol] 3.69 x10*6/uL Low 4.00-5.20 [facility] Comment on above: Performed By: #### 5 7021-8 ####ANDI Cotter ([id number])[facility])[address] [place] [address] 24567 WBC (Bld) [#/Vol] 10.0 x10*3/uL Normal 4.4-11.3 [facility] Comment on above: Performed By: #### 5 7021-8 ####ANDI Cotter ([id number])[facility])[address] [place] [address] 89146 Coagulation surface inducedo n 03-22-2024 aPTT Coag (PPP) [Time] 56 s High 27-38 [facility] Comment on above: Order Comment: Basel ine aPTT before initiating heparin infusion. Nursing to release order.The APTT is no longer used for monitoring Unfractionated Heparin Therapy. For monitoring Heparin Therapy, use the Heparin Assay. Performed By: #### 1 4979-9 ####ANDI Cotter ([id number])[facility])[address]479 [place] [address] Comprehensive metabolic 2000 panelon 03-22-2024 Albumin BCP dye [Mass/Vol] 3.6 g/dL Normal 3.4-5.0 [facility] Comment on above: Performed By: #### 2 4323-8 ####ANDI Cotter ([id number])[facility])[address]81 [place] [address] ALP [Catalytic activity/Vol] 226 U/L High 33-110 [facility] Comment on above: Performed By: #### 2 4323-8 ####ANDI CHAUDHARY L ([id number])[facility])23387 [place] [address] ALT With P-5'-P [Catalytic activity/Vol] 92 U/L High 7-45 [facility] Comment on above: Result Comment: Evelyn ents treated with Sulfasalazine may generate falsely decreased results for ALT. Performed By: #### 2 4323-8 ####ANDI Cotter ([id number])[facility])[address]72 [place] [address] Anion gap [Moles/Vol] 16 mmol/L Normal 10-20 [facility] Comment on above: Performed By: #### 2 4323-8 ####ANDI Cotter ([id number])[facility])[address]40 [place] [address] AST With P-5'-P [Catalytic activity/Vol] 53 U/L High 9-39 [facility] Comment on above: Result Comment: MILD HEMOLYSIS DETECTED. The result may be falsely elevated due to hemolysis or other interferents. Clinical correlation is recommended. Repeat testing may be considered. Performed By: #### 2 4323-8 ####ANDI CHAUDHARY L ([id number])[facility])[address]88 [place] [address] Bilirubin [Mass/Vol] 0.4 mg/dL Normal 0.0-1.2 [facility] Comment on above: Performed By: #### 2 4323-8 ####ANDI CHAUDHARY L ([id number])[facility])[address]357 [place] [address] Calcium [Mass/Vol] 9.4 mg/dL Normal 8.6-10.6 [facility] Comment on above: Performed By: #### 2 4323-8 ####ANDI CHAUDHARY L ([id number])[facility])[address]007 [place] [address] Chloride [Moles/Vol] 99 mmol/L Normal 98-107 [facility] Comment on above: Performed By: #### 2 4323-8 ####ANDI CHAUDHARY L ([id number])[facility])[address]01 [place] [address] CO2 [Moles/Vol] 25 mmol/L Normal 21-32 [facility] Comment on above: Performed By: #### 2 4323-8 ####ANDI CHAUDHARY L ([id number])[facility])[address]31 [place] [address] Creatinine [Mass/Vol] 0.54 mg/dL Normal 0.50-1.05 [facility] Comment on above: Performed By: #### 2 4323-8 ####ANDI CHAUDHARY L ([id number])[facility])13584 [place] [address] GFR/1.73 sq M.predicted MDRD (S/P/Bld) [Vol rate/Area] mL/min/{1.73_m2} Normal >60 [facility] Comment on above: Result Comment: Calc ulations of estimated GFR are performed using the 2020 CKD-EPI Study Refit equation without the race variable for the IDMS-Traceable creatinine methods.https://jasn.asnjournals.org/content/early/ N.5792942705 Performed By: #### 2 4323-8 ####ANDI CHAUDHARY L ([id number])[facility])[address]92 [place] [address] Glucose [Mass/Vol] 167 mg/dL High 74-99 [facility] Comment on above: Performed By: #### 2 4323-8 ####ANDI Cotter ([id number])[facility])[address]92 [place] [address] Potassium [Moles/Vol] 4.0 mmol/L Normal 3.5-5.3 [facility] Comment on above: Result Comment: MILD HEMOLYSIS DETECTED. The result may be falsely elevated due to hemolysis or other interferents. Clinical correlation is recommended. Repeat testing may be considered. Performed By: #### 2 4323-8 ####ANDI Cotter ([id number])[facility])[address]014 [place] [address] Protein [Mass/Vol] 7.5 g/dL Normal 6.4-8.2 [facility] Comment on above: Performed By: #### 2 4323-8 ####ANDI Cotter ([id number])[facility])[address]60 [place] [address] Sodium [Moles/Vol] 136 mmol/L Normal 136-145 [facility] Comment on above: Performed By: #### 2 4323-8 ####ANDI Cotter ([id number])[facility])[address]20 [place] [address] Urea nitrogen [Mass/Vol] 8 mg/dL Normal 6-23 [facility] Comment on above: Performed By: #### 2 4323-8 ####ANDI Cotter ([id number])[facility])[address]26 [place] [address] Glucose Test strip manual (B ld) [Mass/Vol]on 03-22-2024 Glucose [Mass/Vol] 136 mg/dL High 74-99 [facility] Comment on above: Performed By: #### 2 341-6 ####ANDI Cotter ([id number])[facility])[address] [place] [address] Glucose [Mass/Vol] 166 mg/dL High [address] [place] [address] Comment on above: Performed By: #### 2 341-6 ####ANDI MADRIDTZER L ([id number])[facility])[address]044 [place] [address] Glucose [Mass/Vol] 161 mg/dL High 7499 [facility] Comment on above: Performed By: #### 2 341-6 ####ANDI RAJPUTMOTZER L ([id number])[facility])[address]68 [place] [address] Glucose [Mass/Vol] 119 mg/dL High [address] [place] [address] Comment on above: Performed By: #### 2 341-6 ####ANDI CHAUDHARY L ([id number])[facility])[address]503 [place] [address] Heparin.unfractionatedon Heparin unfractionated Chromogenic method Qn (PPP) 0.4 IU/mL Normal See Comment Below for Therapeutic Ranges [facility] Comment on above: Order Comment: Obtai n 4 hours after any Heparin dosage change. Nursing to release order.The therapeutic reference range for UFH may be either 0.3-0.6 IU/mL or 0.3-0.7 IU/mL based on the clinical setting for anticoagulant therapy and the associated nomogram used. For Heparin dosing guidelines based on clinical scenario and Heparin Assay results, please refer to local Pharmacy and the [facility] Guidelines for Anticoagulation Therapy available on the [facility] intranet at: [email or web address] Performed By: #### 3 274-8 ####ANDI RAJPUTMOTZER L ([id number])[facility])[address]148 [place] [address] Heparin unfractionated Chromogenic method Qn (PPP) 0.4 IU/mL Normal See Comment Below for Therapeutic Ranges [facility] Comment on above: Order Comment: Obtai n 4 hours after any Heparin dosage change. Nursing to release order.The therapeutic reference range for UFH may be either 0.3-0.6 IU/mL or 0.3-0.7 IU/mL based on the clinical setting for anticoagulant therapy and the associated nomogram used. For Heparin dosing guidelines based on clinical scenario and Heparin Assay results, please refer to local Pharmacy and the [facility] Guidelines for Anticoagulation Therapy available on the [facility] intranet at: [email or web address]_[email or web address] Performed By: #### 3 274-8 ####ANDI Cotter ([id number])[facility])[address] [place] [address] Magnesiumon 03-22-2024 Magnesium [Mass/Vol] 1.95 mg/dL Normal 1.60-2.40 [facility] Comment on above: Performed By: #### 1 9123-9 ####ANDI Cotter ([id number])[facility])[address] [place] [address]38[address] PT and aPTT panel Coag (PPP) on 03-22-2024 aPTT Coag (PPP) [Time] 62 s High 27-38 [facility] Comment on above: Order Comment: The A PTT is no longer used for monitoring Unfractionated Heparin Therapy. For monitoring Heparin Therapy, use the Heparin Assay. Performed By: #### 3 4529-8 ####ANDI Cotter ([id number])[facility])[address]61 [place] [address] INR Coag (PPP) [Relative time] 1.2 High 0.9-1.1 [facility] Comment on above: Order Comment: The A PTT is no longer used for monitoring Unfractionated Heparin Therapy. For monitoring Heparin Therapy, use the Heparin Assay. Performed By: #### 3 4529-8 ####ANDI Cotter ([id number])[facility])[address] [place] [address] 49484 PT Coag (PPP) [Time] 13.1 s High 9.8-12.8 [facility] Comment on above: Order Comment: The A PTT is no longer used for monitoring Unfractionated Heparin Therapy. For monitoring Heparin Therapy, use the Heparin Assay. Performed By: #### 3 4529-8 ####ANDI Cotter ([id number])[facility])[address]267 [place] [address] Phosphateon 03-22-2024 Phosphate [Mass/Vol] 4.2 mg/dL Normal 2.5-4.9 [facility] Comment on above: Result Comment: MILD HEMOLYSIS [...] Performed By: #### 2 777-1 ####ANDI Cotter ([id number])[facility])[address]230 [place] [address] Blood type and Indirect anti body screen panel (Bld)on 03-21-2024 ABO group Nom (Bld) A Normal [facility] Comment on above: Order Comment: Revie w your Rh Negative female patient's potential need for Rh Immune Globulin (RhIg)administration. Performed By: #### 3 4532-2 ####ANDI Cotter ([id number])[facility] ([facility])[address] [place] [address] Blood group antibody screen Ql Negative [facility] Comment on above: Order Comment: Revie w your Rh Negative female patient's potential need for Rh Immune Globulin (RhIg)administration. Performed By: #### 3 4532-2 ####ANDI Cotter ([id number])[facility] ([facility])[address] [place] [address] D Ag Ql (Bld) Negative [facility] Comment on above: Order Comment: Revie w your Rh Negative female patient's potential need for Rh Immune Globulin (RhIg)administration. Performed By: #### 3 4532-2 ####ANDI Cotter ([id number])[facility] [place] [address] 32989 CBC W Auto Differential pane l (Bld)on 03-21-2024 Basophils (Bld) [#/Vol] 0.03 x10*3/uL Normal 0.00-0.10 [facility] Comment on above: Performed By: #### 5 7021-8 ####ANDI Cotter ([id number])[facility])[address] [place] [address] 75141 Basophils/100 WBC (Bld) 0.4 % Normal 0.0-2.0 [facility] Comment on above: Performed By: #### 5 7021-8 ####ANDI Cotter ([id number])[facility])[address] [place] [address] 52697 Eosinophils (Bld) [#/Vol] 0.17 x10*3/uL Normal 0.00-0.70 [facility] Comment on above: Performed By: #### 5 7021-8 ####ANDI Cotter ([id number])[facility])[address] [place] [address] 32175 Eosinophils/100 WBC (Bld) 2.4 % Normal 0.0-6.0 [facility] Comment on above: Performed By: #### 5 7021-8 ####ANDI Cotter ([id number])[facility])[address]53 [place] [address] Erythrocyte distribution width (RBC) [Ratio] 14.3 % Normal 11.5-14.5 [facility] Comment on above: Performed By: #### 5 7021-8 ####ANDI Cotter ([id number])[facility])[address]752 [place] [address] Hematocrit (Bld) [Volume fraction] 32.1 % Low 36.0-46.0 [facility] Comment on above: Performed By: #### 5 7021-8 ####ANDI Cotter ([id number])[facility])[address]74 [place] [address] Hemoglobin (Bld) [Mass/Vol] 9.8 g/dL Low 12.0-16.0 [facility] Comment on above: Performed By: #### 5 7021-8 ####ANDI CHAUDHARY L ([id number])[facility])46386 [place] [address] Immature granulocytes (Bld) [#/Vol] 0.07 x10*3/uL Normal 0.00-0.70 [facility] Comment on above: Performed By: #### 5 7021-8 ####ANDI Cotter ([id number])[facility])12734 [place] [address] Immature granulocytes/100 WBC (Bld) 1.0 % High 0.0-0.9 [facility] Comment on above: Result Comment: Debbie ture Granulocyte Count (IG) includes promyelocytes, myelocytes and metamyelocytes but does not include bands. Percent differential counts (%) should be interpreted in the context of the absolute cell counts (cells/UL). Performed By: #### 5 7021-8 ####ANDI Cotter ([id number])[facility])[address]90 [place] [address] Lymphocytes (Bld) [#/Vol] 1.43 x10*3/uL Normal 1.20-4.80 [facility] Comment on above: Performed By: #### 5 7021-8 ####ANDI CHAUDHARY L ([id number])[facility])25197 [place] [address] Lymphocytes/100 WBC (Bld) 19.8 % Normal 13.0-44.0 [facility] Comment on above: Performed By: #### 5 7021-8 ####ANDI Cotter ([id number])[facility])[address]49 [place] [address] MCH (RBC) [Entitic mass] 26.4 pg Normal 26.0-34.0 [facility] Comment on above: Performed By: #### 5 7021-8 ####ANDI Cotter ([id number])[facility])[address]64 [place] [address] MCHC (RBC) [Mass/Vol] 30.5 g/dL Low 32.0-36.0 [facility] Comment on above: Performed By: #### 5 7021-8 ####ANDI Cotter ([id number])[facility])[address]87 [place] [address] MCV (RBC) [Entitic vol] 87 fL Normal 80-100 [facility] Comment on above: Performed By: #### 5 7021-8 ####ANDI Cotter ([id number])[facility])[address]10 [place] [address] Monocytes (Bld) [#/Vol] 0.52 x10*3/uL Normal 0.10-1.00 [facility] Comment on above: Performed By: #### 5 7021-8 ####ANDI Cotter ([id number])[facility])67862 [place] [address] Monocytes/100 WBC (Bld) 7.2 % Normal 2.0-10.0 [facility] Comment on above: Performed By: #### 5 7021-8 ####ANDI Cotter ([id number])[facility])[address]105 [place] [address] Neutrophils (Bld) [#/Vol] 5.00 x10*3/uL Normal 1.20-7.70 [facility] Comment on above: Result Comment: Perc ent differential counts (%) should be interpreted in the context of the absolute cell counts (cells/uL). Performed By: #### 5 7021-8 ####ANDI Cotter ([id number])[facility])[address]87 [place] [address] Neutrophils/100 WBC (Bld) 69.2 % Normal 40.0-80.0 [facility] Comment on above: Performed By: #### 5 7021-8 ####ANDI Cotter ([id number])[facility])[address]208 [place] [address] Nucleated RBC/100 WBC (Bld) [Ratio] 0.0 /100 WBCs Normal 0.0-0.0 [facility] Comment on above: Performed By: #### 5 7021-8 ####ANDI Cotter ([id number])[facility])[address]28 [place] [address] Platelets (Bld) [#/Vol] 294 x10*3/uL Normal 150-450 [facility] Comment on above: Performed By: #### 5 7021-8 ####ANDI Cotter ([id number])[facility])58192 [place] [address] RBC (Bld) [#/Vol] 3.71 x10*6/uL Low 4.00-5.20 [facility] Comment on above: Performed By: #### 5 7021-8 ####ANDI Cotter ([id number])[facility])15439 [place] [address] WBC (Bld) [#/Vol] 7.2 x10*3/uL Normal 4.4-11.3 [facility] Comment on above: Performed By: #### 5 7021-8 ####ANDI Cotter ([id number])[facility])[address]31 [place] [address] Basophils (Bld) [#/Vol] 0.03 x10*3/uL Normal 0.00-0.10 [facility] Comment on above: Performed By: #### 5 7021-8 ####ANDI Cotter ([id number])[facility])[address]956 [place] [address] Basophils/100 WBC (Bld) 0.4 % Normal 0.0-2.0 [facility] Comment on above: Performed By: #### 5 7021-8 ####ANDI Cotter ([id number])[facility])[address]389 [place] [address] Eosinophils (Bld) [#/Vol] 0.26 x10*3/uL Normal 0.00-0.70 [facility] Comment on above: Performed By: #### 5 7021-8 ####ANDI Cotter ([id number])[facility])[address]295 [place] [address] Eosinophils/100 WBC (Bld) 3.4 % Normal 0.0-6.0 [facility] Comment on above: Performed By: #### 5 7021-8 ####ANDI Cotter ([id number])[facility])[address]93 [place] [address] Erythrocyte distribution width (RBC) [Ratio] 14.1 % Normal 11.5-14.5 [facility] Comment on above: Performed By: #### 5 7021-8 ####ANDI Cotter ([id number])[facility])[address]31 [place] [address] Hematocrit (Bld) [Volume fraction] 22.2 % Low 36.0-46.0 [facility] Comment on above: Performed By: #### 5 7021-8 ####ANDI Cotter ([id number])[facility])[address]800 [place] [address] Hemoglobin (Bld) [Mass/Vol] 6.8 g/dL Low 12.0-16.0 [facility] Comment on above: Performed By: #### 5 7021-8 ####ANDI Cotter ([id number])[facility])[address]19 [place] [address] Immature granulocytes (Bld) [#/Vol] 0.06 x10*3/uL Normal 0.00-0.70 [facility] Comment on above: Performed By: #### 5 7021-8 ####ANDI Cotter ([id number])[facility])[address]22 [place] [address] Immature granulocytes/100 WBC (Bld) 0.8 % Normal 0.0-0.9 [facility] Comment on above: Result Comment: Debbie ture Granulocyte Count (IG) includes promyelocytes, myelocytes and metamyelocytes but does not include bands. Percent differential counts (%) should be interpreted in the context of the absolute cell counts (cells/UL). Performed By: #### 5 7021-8 ####ANDI Cotter ([id number])[facility] ([facility])[address] [place] [address] Lymphocytes (Bld) [#/Vol] 1.81 x10*3/uL Normal 1.20-4.80 [facility] Comment on above: Performed By: #### 5 7021-8 ####ANDI Cotter ([id number])[facility] ([facility])[address] [place] [address] Lymphocytes/100 WBC (Bld) 23.5 % Normal 13.0-44.0 [facility] Comment on above: Performed By: #### 5 7021-8 ####ANDI Cotter ([id number])[facility] [place] [address] MCH (RBC) [Entitic mass] 26.6 pg Normal 26.0-34.0 [facility] Comment on above: Performed By: #### 5 7021-8 ####ANDI Cotter ([id number])[facility])[address] [place] [address] MCHC (RBC) [Mass/Vol] 30.6 g/dL Low 32.0-36.0 [facility] Comment on above: Performed By: #### 5 7021-8 ####ANDI Cotter ([id number])[facility])[address] [place] [address] MCV (RBC) [Entitic vol] 87 fL Normal 80-100 [facility] Comment on above: Performed By: #### 5 7021-8 ####ANDI Cotter ([id number])[facility])[address] [place] [address] Monocytes (Bld) [#/Vol] 0.59 x10*3/uL Normal 0.10-1.00 [facility] Comment on above: Performed By: #### 5 7021-8 ####ANDI Cotter ([id number])[facility])[address] [place] [address] Monocytes/100 WBC (Bld) 7.7 % Normal 2.0-10.0 [facility] Comment on above: Performed By: #### 5 7021-8 ####ANDI Cotter ([id number])[facility])[address] [place] [address] Neutrophils (Bld) [#/Vol] 4.96 x10*3/uL Normal 1.20-7.70 [facility] Comment on above: Result Comment: Perc ent differential counts (%) should be interpreted in the context of the absolute cell counts (cells/uL). Performed By: #### 5 7021-8 ####ANDI Cotter ([id number])[facility])[address] [place] [address] Neutrophils/100 WBC (Bld) 64.2 % Normal 40.0-80.0 [facility] Comment on above: Performed By: #### 5 7021-8 ####ANDI Cotter ([id number])[facility])[address] [place] [address] Nucleated RBC/100 WBC (Bld) [Ratio] 0.0 /100 WBCs Normal 0.0-0.0 [facility] Comment on above: Performed By: #### 5 7021-8 ####ANDI Cotter ([id number])[facility])[address] [place] [address] Platelets (Bld) [#/Vol] 371 x10*3/uL Normal 150-450 [facility] Comment on above: Performed By: #### 5 7021-8 ####ANDI Cotter ([id number])[facility])[address] [place] [address] RBC (Bld) [#/Vol] 2.56 x10*6/uL Low 4.00-5.20 [facility] Comment on above: Performed By: #### 5 7021-8 ####ANDI Cotter ([id number])[facility])[address] [place] [address] WBC (Bld) [#/Vol] 7.7 x10*3/uL Normal 4.4-11.3 [facility] Comment on above: Performed By: #### 5 7021-8 ####ANDI Cotter ([id number])[facility])[address] [place] [address] Comprehensive metabolic 2000 panelon 03-21-2024 Albumin BCP dye [Mass/Vol] 3.5 g/dL Normal 3.4-5.0 [facility] Comment on above: Performed By: #### 2 4323-8 ####ANDI Cotter ([id number])[facility])[address] [place] [address] ALP [Catalytic activity/Vol] 232 U/L High 33-110 [facility] Comment on above: Performed By: #### 2 4323-8 ####ANDI Cotter ([id number])[facility])[address] [place] [address] ALT With P-5'-P [Catalytic activity/Vol] 100 U/L High 7-45 [facility] Comment on above: Result Comment: Evelyn ents treated with Sulfasalazine may generate falsely decreased results for ALT. Performed By: #### 2 4323-8 ####ANDI Cotter ([id number])[facility])[address] [place] [address] Anion gap [Moles/Vol] 15 mmol/L Normal 10-20 [facility] Comment on above: Performed By: #### 2 4323-8 ####ANDI Cotter ([id number])[facility])[address] [place] [address] AST With P-5'-P [Catalytic activity/Vol] 129 U/L High 9-39 [facility] Comment on above: Performed By: #### 2 4323-8 ####ANDI Cotter ([id number])[facility])[address] [place] [address] Bilirubin [Mass/Vol] 0.6 mg/dL Normal 0.0-1.2 [facility] Comment on above: Performed By: #### 2 4323-8 ####ANDI Cotter ([id number])[facility])[address] [place] [address] Calcium [Mass/Vol] 9.1 mg/dL Normal 8.6-10.6 [facility] Comment on above: Performed By: #### 2 4323-8 ####ANDI Cotter ([id number])[facility])[address] [place] [address] Chloride [Moles/Vol] 99 mmol/L Normal 98-107 [facility] Comment on above: Performed By: #### 2 4323-8 ####ANDI Cotter ([id number])[facility])[address] [place] [address] CO2 [Moles/Vol] 26 mmol/L Normal 21-32 [facility] Comment on above: Performed By: #### 2 4323-8 ####ANDI Cotter ([id number])[facility])[address] [place] [address] Creatinine [Mass/Vol] 0.71 mg/dL Normal 0.50-1.05 [facility] Comment on above: Performed By: #### 2 4323-8 ####ANDI Cotter ([id number])[facility])[address] [place] [address] GFR/1.73 sq M.predicted MDRD (S/P/Bld) [Vol rate/Area] mL/min/{1.73_m2} Normal >60 [facility] Comment on above: Result Comment: Calc ulations of estimated GFR are performed using the 2020 CKD-EPI Study Refit equation without the race variable for the IDMS-Traceable creatinine methods.https://jasn.asnjournals.org/content/early// N.0413398381 Performed By: #### 2 4323-8 ####ANDI Cotter ([id number])[facility])[address] [place] [address] Glucose [Mass/Vol] 131 mg/dL High 74-99 [facility] Comment on above: Performed By: #### 2 4323-8 ####ANDI CHAUDHARY L ([id number])[facility])[address] [place] [address] Potassium [Moles/Vol] 3.7 mmol/L Normal 3.5-5.3 [facility] Comment on above: Performed By: #### 2 4323-8 ####ANDI Cotter ([id number])[facility])[address] [place] [address] Protein [Mass/Vol] 7.1 g/dL Normal 6.4-8.2 [facility] Comment on above: Performed By: #### 2 4323-8 ####ANDI Cotter ([id number])[facility])[address] [place] [address] Sodium [Moles/Vol] 136 mmol/L Normal 136-145 [facility] Comment on above: Performed By: #### 2 4323-8 ####ANDI Cotter ([id number])[facility])[address] [place] [address] Urea nitrogen [Mass/Vol] 7 mg/dL Normal 6-23 [facility] Comment on above: Performed By: #### 2 4323-8 ####ANDI Cotter ([id number])[facility])[address] [place] [address] ERCPon 03-21-2024 ERCP Normal [facility] Glucose Test strip manual (B ld) [Mass/Vol]on 03-21-2024 Glucose [Mass/Vol] 249 mg/dL High -99 [facility] Comment on above: Performed By: #### 2 341-6 ####ANDI Cotter ([id number])[facility])[address] [place] [address] Glucose [Mass/Vol] 220 mg/dL High 74-99 [facility] Comment on above: Performed By: #### 2 341-6 ####ANDI Cotter ([id number])[facility])[address] [place] [address] Glucose [Mass/Vol] 239 mg/dL High -99 [facility] Comment on above: Performed By: #### 2 341-6 ####ANDI Cotter ([id number])[facility])[address] [place] [address] Glucose [Mass/Vol] 135 mg/dL High 74-99 [facility] Comment on above: Performed By: #### 2 341-6 ####ANDI Cotter ([id number])[facility])[address] [place] [address] Glucose [Mass/Vol] 156 mg/dL High 74-99 [facility] Comment on above: Performed By: #### 2 341-6 ####ANDI Cotter ([id number])[facility])[address] [place] [address] Glucose [Mass/Vol] 129 mg/dL High 74-99 [facility] Comment on above: Performed By: #### 2 341-6 ####ANDI Cotter ([id number])[facility])[address] [place] [address] Heparin.unfractionatedon Heparin unfractionated Chromogenic method Qn (PPP) 0.2 IU/mL Normal See Comment Below for Therapeutic Ranges [facility] Comment on above: Order Comment: If bl eeding from any site at anytime. Nursing to release order.The therapeutic reference range for UFH may be either 0.3-0.6 IU/mL or 0.3-0.7 IU/mL based on the clinical setting for anticoagulant therapy and the associated nomogram used. For Heparin dosing guidelines based on clinical scenario and Heparin Assay results, please refer to local Pharmacy and [facility] Guidelines for Anticoagulation Therapy available on the [facility] intranet at: [email or web address]_Guidelines_[email or web address].aspx Performed By: #### 3 274-8 ####ANDI Cotter ([id number])[facility])[address] [place] [address] Heparin unfractionated Chromogenic method Qn (PPP) 0.2 IU/mL Normal See Comment Below for Therapeutic Ranges [facility] Comment on above: Order Comment: Obtai n 4 hours after any Heparin dosage change. Nursing to release order.The therapeutic reference range for UFH may be either 0.3-0.6 IU/mL or 0.3-0.7 IU/mL based on the clinical setting for anticoagulant therapy and the associated nomogram used. For Heparin dosing guidelines based on clinical scenario and Heparin Assay results, please refer to local Pharmacy and the [facility] Guidelines for Anticoagulation Therapy available on the [facility] intranet at: [email or web address]_Guidelines_for_Anticoagu.aspx Performed By: #### 3 274-8 ####ANDI Cotter ([id number])[facility])[address] [place] [address] Magnesiumon 03-21-2024 Magnesium [Mass/Vol] 1.86 mg/dL Normal 1.60-2.40 [facility] Comment on above: Performed By: #### 1 9123-9 ####ANDI Cotter ([id number])[facility])[address] [place] [address] PT and aPTT panel Coag (PPP) on 03-21-2024 aPTT Coag (PPP) [Time] 77 s High 27-38 [facility] Comment on above: Order Comment: The A PTT is no longer used for monitoring Unfractionated Heparin Therapy. For monitoring Heparin Therapy, use the Heparin Assay. Performed By: #### 3 4529-8 ####ANDI Cotter ([id number])[facility])[address] [place] [address] INR Coag (PPP) [Relative time] 1.1 Normal 0.9-1.1 [facility] Comment on above: Order Comment: The A PTT is no longer used for monitoring Unfractionated Heparin Therapy. For monitoring Heparin Therapy, use the Heparin Assay. Performed By: #### 3 4529-8 ####ANDI Cotter ([id number])[facility])[address] [place] [address] PT Coag (PPP) [Time] 12.8 s Normal 9.8-12.8 [facility] Comment on above: Order Comment: The A PTT is no longer used for monitoring Unfractionated Heparin Therapy. For monitoring Heparin Therapy, use the Heparin Assay. Performed By: #### 3 4529-8 ####ANDI Cotter ([id number])[facility])[address] [place] [address] Phosphateon 03-21-2024 Phosphate [Mass/Vol] 5.0 mg/dL High 2.5-4.9 [facility] Comment on above: Result Comment: The performance characteristics of phosphorus testing in heparinized plasma have been validated by the individual laboratory site where testing is performed. Testing on heparinized plasma is not approved by the FDA; however, such approval is not necessary. Performed By: #### 2 777-1 ####ANDI Cotter ([id number])[facility])[address] [place] [address] CBC W Auto Differential pane l (Bld)on 03-20-2024 Basophils (Bld) [#/Vol] 0.02 x10*3/uL Normal 0.00-0.10 [facility] Comment on above: Performed By: #### 5 7021-8 ####ANDI Cotter ([id number])[facility])[address] [place] [address] Basophils/100 WBC (Bld) 0.3 % Normal 0.0-2.0 [facility] Comment on above: Performed By: #### 5 7021-8 ####ANDI Cotter ([id number])[facility])[address] [place] [address] Eosinophils (Bld) [#/Vol] 0.20 x10*3/uL Normal 0.00-0.70 [facility] Comment on above: Performed By: #### 5 7021-8 ####ANDI Cotter ([id number])[facility])[address] [place] [address] Eosinophils/100 WBC (Bld) 2.7 % Normal 0.0-6.0 [facility] Comment on above: Performed By: #### 5 7021-8 ####ANDI Cotter ([id number])[facility])[address] [place] [address] Erythrocyte distribution width (RBC) [Ratio] 14.3 % Normal 11.5-14.5 [facility] Comment on above: Performed By: #### 5 7021-8 ####ANDI Cotter ([id number])[facility])[address] [place] [address] Hematocrit (Bld) [Volume fraction] 30.6 % Low 36.0-46.0 [facility] Comment on above: Performed By: #### 5 7021-8 ####ANDI CHAUDHARY L (40093)[facility])[address] [place] [address] Hemoglobin (Bld) [Mass/Vol] 9.3 g/dL Low 12.0-16.0 [facility] Comment on above: Performed By: #### 5 7021-8 ####ANDI Cotter ([id number])[facility])[address] [place] [address] Immature granulocytes (Bld) [#/Vol] 0.07 x10*3/uL Normal 0.00-0.70 [facility] Comment on above: Performed By: #### 5 7021-8 ####ANDI Cotter ([id number])[facility])[address] [place] [address] Immature granulocytes/100 WBC (Bld) 0.9 % Normal 0.0-0.9 [facility] Comment on above: Result Comment: Debbie ture Granulocyte Count (IG) includes promyelocytes, myelocytes and metamyelocytes but does not include bands. Percent differential counts (%) should be interpreted in the context of the absolute cell counts (cells/UL). Performed By: #### 5 7021-8 ####ANDI oCtter ([id number])[facility])[address] [place] [address] Lymphocytes (Bld) [#/Vol] 2.11 x10*3/uL Normal 1.20-4.80 [facility] Comment on above: Performed By: #### 5 7021-8 ####ANDI Cotter ([id number])[facility])[address] [place] [address] Lymphocytes/100 WBC (Bld) 28.0 % Normal 13.0-44.0 [facility] Comment on above: Performed By: #### 5 7021-8 ####ANDI Cotter ([id number])[facility])[address] [place] [address] MCH (RBC) [Entitic mass] 26.6 pg Normal 26.0-34.0 [facility] Comment on above: Performed By: #### 5 7021-8 ####ANDI Ctoter ([id number])[facility])[address]82 [place] [address] MCHC (RBC) [Mass/Vol] 30.4 g/dL Low 32.0-36.0 [facility] Comment on above: Performed By: #### 5 7021-8 ####ANDI Cotter ([id number])[facility])[address] [place] [address] MCV (RBC) [Entitic vol] 88 fL Normal 80-100 [facility] Comment on above: Performed By: #### 5 7021-8 ####ANDI Cotter ([id number])[facility])[address] [place] [address] Monocytes (Bld) [#/Vol] 0.52 x10*3/uL Normal 0.10-1.00 [facility] Comment on above: Performed By: #### 5 7021-8 ####ANDI Cotter ([id number])[facility])[address]194 [place] [address] Monocytes/100 WBC (Bld) 6.9 % Normal 2.0-10.0 [facility] Comment on above: Performed By: #### 5 7021-8 ####ANDI Ctoter ([id number])[facility])[address] [place] [address] Neutrophils (Bld) [#/Vol] 4.62 x10*3/uL Normal 1.20-7.70 [facility] Comment on above: Result Comment: Perc ent differential counts (%) should be interpreted in the context of the absolute cell counts (cells/uL). Performed By: #### 5 7021-8 ####ANDI Cotter ([id number])[facility])[address] [place] [address] Neutrophils/100 WBC (Bld) 61.2 % Normal 40.0-80.0 [facility] Comment on above: Performed By: #### 5 7021-8 ####ANDI Cotter ([id number])[facility])[address] [place] [address] Nucleated RBC/100 WBC (Bld) [Ratio] 0.0 /100 WBCs Normal 0.0-0.0 [facility] Comment on above: Performed By: #### 5 7021-8 ####ANDI Cotter ([id number])[facility])[address]652 [place] [address] Platelets (Bld) [#/Vol] 326 x10*3/uL Normal 150-450 [facility] Comment on above: Performed By: #### 5 7021-8 ####ANDI Cotter ([id number])[facility])[address] [place] [address] RBC (Bld) [#/Vol] 3.49 x10*6/uL Low 4.00-5.20 [facility] Comment on above: Performed By: #### 5 7021-8 ####ANDI Cotter ([id number])[facility])[address]1987 [place] [address] WBC (Bld) [#/Vol] 7.5 x10*3/uL Normal 4.4-11.3 [facility] Comment on above: Performed By: #### 5 7021-8 ####ANDI Cotter ([id number])[facility])[address]64 [place] [address] Comprehensive metabolic 2000 panelon 03-20-2024 Albumin BCP dye [Mass/Vol] 3.5 g/dL Normal 3.4-5.0 [facility] Comment on above: Performed By: #### 2 4323-8 ####ANDI Cotter ([id number])[facility])[address] [place] [address] ALP [Catalytic activity/Vol] 144 U/L High 33-110 [facility] Comment on above: Performed By: #### 2 4323-8 ####ANDI Cotter ([id number])[facility])[address] [place] [address] ALT With P-5'-P [Catalytic activity/Vol] 48 U/L High 7-45 [facility] Comment on above: Result Comment: Evelyn ents treated with Sulfasalazine may generate falsely decreased results for ALT. Performed By: #### 2 4323-8 ####ANDI Cotter ([id number])[facility])[address]473 [place] [address] Anion gap [Moles/Vol] 17 mmol/L Normal 10-20 [facility] Comment on above: Performed By: #### 2 4323-8 ####ANDI Cotter ([id number])[facility])[address] [place] [address] AST With P-5'-P [Catalytic activity/Vol] 58 U/L High 9-39 [facility] Comment on above: Performed By: #### 2 4323-8 ####ANDI Cotter ([id number])[facility])[address]658 [place] [address] Bilirubin [Mass/Vol] 0.5 mg/dL Normal 0.0-1.2 [facility] Comment on above: Performed By: #### 2 4323-8 ####ANDI Cotter ([id number])[facility])[address]47 [place] [address] Calcium [Mass/Vol] 8.7 mg/dL Normal 8.6-10.6 [facility] Comment on above: Performed By: #### 2 4323-8 ####ANDI Cotter ([id number])[facility])[address] [place] [address] Chloride [Moles/Vol] 102 mmol/L Normal 98-107 [facility] Comment on above: Performed By: #### 2 4323-8 ####ANDI Cotter ([id number])[facility])[address]255 [place] [address] CO2 [Moles/Vol] 20 mmol/L Low 21-32 [facility] Comment on above: Performed By: #### 2 4323-8 ####ANDI Cotter ([id number])[facility])[address] [place] [address] Creatinine [Mass/Vol] 0.52 mg/dL Normal 0.50-1.05 [facility] Comment on above: Performed By: #### 2 4323-8 ####ANDI Cotter ([id number])[facility])[address] [place] [address] GFR/1.73 sq M.predicted MDRD (S/P/Bld) [Vol rate/Area] mL/min/{1.73_m2} Normal >60 [facility] Comment on above: Result Comment: Calc ulations of estimated GFR are performed using the 2020 CKD-EPI Study Refit equation without the race variable for the IDMS-Traceable creatinine methods.https://jasn.asnjournals.org/content/early// N.7269673373 Performed By: #### 2 4323-8 ####ANDI Cotter ([id number])[facility])[address] [place] [address] Glucose [Mass/Vol] 114 mg/dL High 74-99 [facility] Comment on above: Performed By: #### 2 4323-8 ####ANDI Cotter ([id number])[facility])[address] [place] [address] Potassium [Moles/Vol] 3.8 mmol/L Normal 3.5-5.3 [facility] Comment on above: Performed By: #### 2 4323-8 ####ANDI Cotter ([id number])[facility])[address] [place] [address] Protein [Mass/Vol] 7.1 g/dL Normal 6.4-8.2 [facility] Comment on above: Performed By: #### 2 4323-8 ####ANDI Cotter ([id number])[facility])[address] [place] [address] Sodium [Moles/Vol] 135 mmol/L Low 136-145 [facility] Comment on above: Performed By: #### 2 4323-8 ####ANDI Cotter ([id number])[facility])[address] [place] [address] Urea nitrogen [Mass/Vol] 8 mg/dL Normal 6-23 [facility] Comment on above: Performed By: #### 2 4323-8 ####ANDI Cotter ([id number])[facility])[address] [place] [address] Glucose Test strip manual (B ld) [Mass/Vol]on 03-20-2024 Glucose [Mass/Vol] 125 mg/dL High 74-99 [facility] Comment on above: Performed By: #### 2 341-6 ####ANDI Cotter ([id number])[facility])[address] [place] [address] Glucose [Mass/Vol] 148 mg/dL High 74-99 [facility] Comment on above: Performed By: #### 2 341-6 ####ANDI Cotter ([id number])[facility])[address] [place] [address] Glucose [Mass/Vol] 162 mg/dL High 74-99 [facility] Comment on above: Performed By: #### 2 341-6 ####ANDI Cotter ([id number])[facility])[address]165 [place] [address] Glucose [Mass/Vol] 93 mg/dL Normal 74-99 [facility] Comment on above: Performed By: #### 2 341-6 ####ANDI Cotter ([id number])[facility])[address] [place] [address] Heparin.unfractionatedon Heparin unfractionated Chromogenic method Qn (PPP) 0.6 IU/mL Normal See Comment Below for Therapeutic Ranges [facility] Comment on above: Order Comment: Obtai n 4 hours after any Heparin dosage change. Nursing to release order.The therapeutic reference range for UFH may be either 0.3-0.6 IU/mL or 0.3-0.7 IU/mL based on the clinical setting for anticoagulant therapy and the associated nomogram used. For Heparin dosing guidelines based on clinical scenario and Heparin Assay results, please refer to local Pharmacy and the [facility] Guidelines for Anticoagulation Therapy available on the [facility] intranet at: [email or web address]_Guidelines_for_[email or web address].aspx Performed By: #### 3 274-8 ####ANDI Cotter ([id number])[facility])[address] [place] [address] Magnesiumon 03-20-2024 Magnesium [Mass/Vol] 1.92 mg/dL Normal 1.60-2.40 [facility] Comment on above: Performed By: #### 1 9123-9 ####ANDI Cotter ([id number])[facility] [place] [address] PT and aPTT panel Coag (PPP) on 03-20-2024 aPTT Coag (PPP) [Time] 127 s Critically high 27-38 [facility] Comment on above: Order Comment: The A PTT is no longer used for monitoring Unfractionated Heparin Therapy. For monitoring Heparin Therapy, use the Heparin Assay. Performed By: #### 3 4529-8 ####ANDI Cotter ([id number])[facility])[address] [place] [address] 88515 INR Coag (PPP) [Relative time] 1.4 High 0.9-1.1 [facility] Comment on above: Order Comment: The A PTT is no longer used for monitoring Unfractionated Heparin Therapy. For monitoring Heparin Therapy, use the Heparin Assay. Performed By: #### 3 4529-8 ####ANDI Cotter ([id number])[facility])[address] [place] [address] 51736 PT Coag (PPP) [Time] 15.6 s High 9.8-12.8 [facility] Comment on above: Order Comment: The A PTT is no longer used for monitoring Unfractionated Heparin Therapy. For monitoring Heparin Therapy, use the Heparin Assay. Performed By: #### 3 4529-8 ####ANDI Cotter ([id number])[facility])[address] [place] [address] 44052 Phosphateon 03-20-2024 Phosphate [Mass/Vol] 4.5 mg/dL Normal 2.5-4.9 [facility] Comment on above: Result Comment: The performance characteristics of phosphorus testing in heparinized plasma have been validated by the individual laboratory site where testing is performed. Testing on heparinized plasma is not approved by the FDA; however, such approval is not necessary. Performed By: #### 2 777-1 ####ANDI Cotter ([id number])[facility])[address] [place] [address] 14396 CBC W Auto Differential pane l (Bld)on 03-19-2024 Basophils (Bld) [#/Vol] 0.03 x10*3/uL Normal 0.00-0.10 [facility] Comment on above: Performed By: #### 5 7021-8 ####ANDI Cotter ([id number])[facility])[address] [place] [address] Basophils/100 WBC (Bld) 0.3 % Normal 0.0-2.0 [facility] Comment on above: Performed By: #### 5 7021-8 ####ANDI CHAUDHARY L ([id number])[facility])[address] [place] [address] Eosinophils (Bld) [#/Vol] 0.17 x10*3/uL Normal 0.00-0.70 [facility] Comment on above: Performed By: #### 5 7021-8 ####ANDI Cotter ([id number])[facility])[address] [place] [address] Eosinophils/100 WBC (Bld) 1.7 % Normal 0.0-6.0 [facility] Comment on above: Performed By: #### 5 7021-8 ####ANDI Cotter ([id number])[facility])[address] [place] [address] Immature granulocytes (Bld) [#/Vol] 0.04 x10*3/uL Normal 0.00-0.70 [facility] Comment on above: Performed By: #### 5 7021-8 ####ANDI Cotter ([id number])[facility])[address] [place] [address] Immature granulocytes/100 WBC (Bld) 0.4 % Normal 0.0-0.9 [facility] Comment on above: Result Comment: Debbie ture Granulocyte Count (IG) includes promyelocytes, myelocytes and metamyelocytes but does not include bands. Percent differential counts (%) should be interpreted in the context of the absolute cell counts (cells/UL). Performed By: #### 5 7021-8 ####ANDI RAJPUTMOFIDELINA Cotter ([id number])[facility])[address] [place] [address] Lymphocytes (Bld) [#/Vol] 1.19 x10*3/uL Low 1.20-4.80 [facility] Comment on above: Performed By: #### 5 7021-8 ####ANDI Cotter ([id number])[facility])[address] [place] [address] Lymphocytes/100 WBC (Bld) 12.0 % Normal 13.0-44.0 [facility] Comment on above: Performed By: #### 5 7021-8 ####ANDI CHAUDHARY L ([id number])[facility])[address] [place] [address] Monocytes (Bld) [#/Vol] 0.64 x10*3/uL Normal 0.10-1.00 [facility] Comment on above: Performed By: #### 5 7021-8 ####ANDI CHAUDHARY L ([id number])[facility])[address] [place] [address] Monocytes/100 WBC (Bld) 6.5 % Normal 2.0-10.0 [facility] Comment on above: Performed By: #### 5 7021-8 ####ANDI Cotter ([id number])[facility])[address] [place] [address] Neutrophils (Bld) [#/Vol] 7.85 x10*3/uL High 1.20-7.70 [facility] Comment on above: Result Comment: Perc ent differential counts (%) should be interpreted in the context of the absolute cell counts (cells/uL). Performed By: #### 5 7021-8 ####ANDI RAJPUTMOTZJYOTI L ([id number])[facility])[address] [place] [address] Neutrophils/100 WBC (Bld) 79.1 % Normal 40.0-80.0 [facility] Comment on above: Performed By: #### 5 7021-8 ####ANDI RAJPUTMOEDELMIRAER L ([id number])[facility])[address] [place] [address] Complete blood count panelon 03-19-2024 Erythrocyte distribution width (RBC) [Ratio] 14.3 % Normal 11.5-14.5 [facility] Comment on above: Performed By: #### 5 8410-2 ####ANDI Cotter ([id number])[facility])[address] [place], [place] [address] Performed By: #### 5 7021-8 ####ANDI Ctoter ([id number])[facility])[address] [place], [place] [address] Hematocrit (Bld) [Volume fraction] 31.9 % Low 36.0-46.0 [facility] Comment on above: Performed By: #### 5 8410-2 ####ANDI Cotter ([id number])[facility])[address] [place], [place] [address] Performed By: #### 5 7021-8 ####ANDI Cotter ([id number])[facility])[address] [place], [place] [address] Hemoglobin (Bld) [Mass/Vol] 10.0 g/dL Low 12.0-16.0 [facility] Comment on above: Performed By: #### 5 8410-2 ####ANDI Cotter ([id number])[facility])[address] [place], [place] [address] Performed By: #### 5 7021-8 ####ANDI Cotter ([id number])[facility])[address] [place] [address] 88516 MCH (RBC) [Entitic mass] 27.1 pg Normal 26.0-34.0 [facility] Comment on above: Performed By: #### 5 8410-2 ####ANDI Cotter ([id number])[facility])[address] [place] [address]16 Performed By: #### 5 7021-8 ####ANDI Cotter ([id number])[facility])[address] [place] [address], [place] [address] MCHC (RBC) [Mass/Vol] 31.3 g/dL Low 32.0-36.0 [facility] Comment on above: Performed By: #### 5 8410-2 ####ANDI Cotter ([id number])[facility])[address] [place] [address]283 Performed By: #### 5 7021-8 ####ANDI Cotter ([id number])[facility])[address] [place] [address] 72496 MCV (RBC) [Entitic vol] 86 fL Normal 80-100 [facility] Comment on above: Performed By: #### 5 8410-2 ####ANDI Cotter ([id number])[facility])[address] [place] [address] 27165 Performed By: #### 5 7021-8 ####ANDI Cotter ([id number])[facility])[address] [place] [address] 69120 Nucleated RBC/100 WBC (Bld) [Ratio] 0.0 /100 WBCs Normal 0.0-0.0 [facility] Comment on above: Performed By: #### 5 8410-2 ####ANDI Cotter ([id number])[facility])[address] [place] [address] 21242 Performed By: #### 5 7021-8 ####ANDI Cotter ([id number])[facility])[address] [place] [address] 92386 Platelets (Bld) [#/Vol] 311 x10*3/uL Normal 150-450 [facility] Comment on above: Performed By: #### 5 8410-2 ####ANDI Cotter ([id number])[facility])[address] [place] [address] 07351 Performed By: #### 5 7021-8 ####ANDI Cotter ([id number])[facility])[address] [place] [address] RBC (Bld) [#/Vol] 3.69 x10*6/uL Low 4.00-5.20 [facility] Comment on above: Performed By: #### 5 8410-2 ####ANDI Cotter ([id number])[facility])[address] [place] [address] 21475 Performed By: #### 5 7021-8 ####ANDI Cotter ([id number])[facility])[address] [place] [address] 58514 WBC (Bld) [#/Vol] 10.1 x10*3/uL Normal 4.4-11.3 [facility] Comment on above: Performed By: #### 5 8410-2 ####ANDI Cotter ([id number])[facility])[address] [place] [address] 97379 Performed By: #### 5 7021-8 ####ANDI Cotter ([id number])[facility])[address] [place] [address] 49245 Comprehensive metabolic 2000 panelon 03-19-2024 Albumin BCP dye [Mass/Vol] 3.6 g/dL Normal 3.4-5.0 [facility] Comment on above: Performed By: #### 2 4323-8 ####ANDI Cotter ([id number])[facility])[address] [place] [address] 89940 ALP [Catalytic activity/Vol] 129 U/L High 33-110 [facility] Comment on above: Performed By: #### 2 4323-8 ####ANDI CHAUDHARY L ([id number])[facility])[address] [place] [address] 89733 ALT With P-5'-P [Catalytic activity/Vol] 43 U/L Normal 7-45 [facility] Comment on above: Result Comment: Evelyn ents treated with Sulfasalazine may generate falsely decreased results for ALT. Performed By: #### 2 4323-8 ####ANDI Cotter ([id number])[facility])[address] [place] [address] Anion gap [Moles/Vol] 17 mmol/L Normal 10-20 [facility] Comment on above: Performed By: #### 2 4323-8 ####ANDI Cotter ([id number])[facility])[address] [place] [address] AST With P-5'-P [Catalytic activity/Vol] 22 U/L Normal 9-39 [facility] Comment on above: Performed By: #### 2 4323-8 ####ANDI Cotter ([id number])[facility])[address] [place] [address] Bilirubin [Mass/Vol] 0.4 mg/dL Normal 0.0-1.2 [facility] Comment on above: Performed By: #### 2 4323-8 ####ANDI Cotter ([id number])[facility])[address]34 [place] [address] Calcium [Mass/Vol] 9.2 mg/dL Normal 8.6-10.6 [facility] Comment on above: Performed By: #### 2 4323-8 ####ANDI Cotter ([id number])[facility])[address] [place] [address] Chloride [Moles/Vol] 101 mmol/L Normal 98-107 [facility] Comment on above: Performed By: #### 2 4323-8 ####ANDI CHAUDHARY L ([id number])[facility])[address] [place] [address] CO2 [Moles/Vol] 22 mmol/L Normal 21-32 [facility] Comment on above: Performed By: #### 2 4323-8 ####ANDI CHAUDHARY L ([id number])[facility])[address]194 [place] [address] Creatinine [Mass/Vol] 0.50 mg/dL Normal 0.50-1.05 [facility] Comment on above: Performed By: #### 2 4323-8 ####ANDI Cotter ([id number])[facility])[address] [place] [address] GFR/1.73 sq M.predicted MDRD (S/P/Bld) [Vol rate/Area] mL/min/{1.73_m2} Normal >60 [facility] Comment on above: Result Comment: Calc ulations of estimated GFR are performed using the 2020 CKD-EPI Study Refit equation without the race variable for the IDMS-Traceable creatinine methods.https://jasn.asnjournals.org/content/early// N.7505097536 Performed By: #### 2 4323-8 ####ANDI Cotter ([id number])[facility])[address] [place] [address] Glucose [Mass/Vol] 135 mg/dL High 74-99 [facility] Comment on above: Performed By: #### 2 4323-8 ####ANDI Cotter ([id number])[facility])[address] [place] [address] Potassium [Moles/Vol] 3.5 mmol/L Normal 3.5-5.3 [facility] Comment on above: Performed By: #### 2 4323-8 ####ANDI Cotter ([id number])[facility])[address]75 [place] [address] Protein [Mass/Vol] 7.5 g/dL Normal 6.4-8.2 [facility] Comment on above: Performed By: #### 2 4323-8 ####ANDI Cotter ([id number])[facility])[address] [place] [address] Sodium [Moles/Vol] 136 mmol/L Normal 136-145 [facility] Comment on above: Performed By: #### 2 4323-8 ####ANDI Cotter ([id number])[facility])[address]105 [place] [address] Urea nitrogen [Mass/Vol] 7 mg/dL Normal 6-23 [facility] Comment on above: Performed By: #### 2 4323-8 ####ANDI Cotter ([id number])[facility])[address] [place] [address] Glucose Test strip manual (B ld) [Mass/Vol]on 03-19-2024 Glucose [Mass/Vol] 103 mg/dL High 74-99 [facility] Comment on above: Performed By: #### 2 341-6 ####ANDI Cotter ([id number])[facility])[address] [place] [address] 06210 Glucose [Mass/Vol] 124 mg/dL High 74-99 [facility] Comment on above: Performed By: #### 2 341-6 ####ANDI Cotter ([id number])[facility])[address] [place] [address] Glucose [Mass/Vol] 153 mg/dL High 74-99 [facility] Comment on above: Performed By: #### 2 341-6 ####ANDI Cotter ([id number])[facility])[address] [place] [address] Glucose [Mass/Vol] 133 mg/dL High 74-99 [facility] Comment on above: Performed By: #### 2 341-6 ####ANDI Cotter ([id number])[facility])[address] [place] [address] Glucose [Mass/Vol] 132 mg/dL High 74-[address] [place] [address] Comment on above: Performed By: #### 2 341-6 ####ANDI Cotter ([id number])[facility])[address]82 [place] [address] Glucose [Mass/Vol] 146 mg/dL High 74-99 [facility] Comment on above: Performed By: #### 2 341-6 ####ANDI Cotter ([id number])[facility])[address] [place] [address] 50155 Heparin.unfractionatedon Heparin unfractionated Chromogenic method Qn (PPP) 0.5 IU/mL Normal See Comment Below for Therapeutic Ranges [facility] Comment on above: Order Comment: Obtai n 4 hours after any Heparin dosage change. Nursing to release order.The therapeutic reference range for UFH may be either 0.3-0.6 IU/mL or 0.3-0.7 IU/mL based on the clinical setting for anticoagulant therapy and the associated nomogram used. For Heparin dosing guidelines based on clinical scenario and Heparin Assay results, please refer to local Pharmacy and the [facility] Guidelines for Anticoagulation Therapy available on the [facility] intranet at: [email or web address] Performed By: #### 3 274-8 ####ANDI Cotter ([id number])[facility])[address] [place], [place] [address] Heparin unfractionated Chromogenic method Qn (PPP) 0.9 IU/mL Normal See Comment Below for Therapeutic Ranges [facility] Comment on above: Order Comment: Obtai n 4 hours after any Heparin dosage change. Nursing to release order.The therapeutic reference range for UFH may be either 0.3-0.6 IU/mL or 0.3-0.7 IU/mL based on the clinical setting for anticoagulant therapy and the associated nomogram used. For Heparin dosing guidelines based on clinical scenario and Heparin Assay results, please refer to local Pharmacy and the [facility] Guidelines for Anticoagulation Therapy available on the [facility] intranet at: [email or web address].aspx Performed By: #### 3 274-8 ####ANDI Cotter (69292)[facility])[address] [place] [address] Heparin unfractionated Chromogenic method Qn (PPP) 0.1 IU/mL Normal See Comment Below for Therapeutic Ranges [facility] Comment on above: Order Comment: Obtai n 4 hours after any Heparin dosage change. Nursing to release order.The therapeutic reference range for UFH may be either 0.3-0.6 IU/mL or 0.3-0.7 IU/mL based on the clinical setting for anticoagulant therapy and the associated nomogram used. For Heparin dosing guidelines based on clinical scenario and Heparin Assay results, please refer to local Pharmacy and the [facility] Guidelines for Anticoagulation Therapy available on the [facility] intranet at: [email or web address]_[email or web address].aspx Performed By: #### 3 274-8 ####ANDI Cotter ([id number])[facility])[address] [place] [address] 18765 Magnesiumon 03-19-2024 Magnesium [Mass/Vol] 2.03 mg/dL Normal 1.60-2.40 [facility] Comment on above: Performed By: #### 1 9123-9 ####ANDI Cotter ([id number])[facility])[address] [place] [address] 32095 PT and aPTT panel Coag (PPP) on 03-19-2024 aPTT Coag (PPP) [Time] 25 s Low 27-38 [facility] Comment on above: Order Comment: The A PTT is no longer used for monitoring Unfractionated Heparin Therapy. For monitoring Heparin Therapy, use the Heparin Assay. Performed By: #### 3 4529-8 ####ANDI Cotter ([id number])[facility])[address] [place] [address] 10643 INR Coag (PPP) [Relative time] 1.3 High 0.9-1.1 [facility] Comment on above: Order Comment: The A PTT is no longer used for monitoring Unfractionated Heparin Therapy. For monitoring Heparin Therapy, use the Heparin Assay. Performed By: #### 3 4529-8 ####ANDI Cotter ([id number])[facility])[address] [place] [address] 40450 PT Coag (PPP) [Time] 14.1 s High 9.8-12.8 [facility] Comment on above: Order Comment: The A PTT is no longer used for monitoring Unfractionated Heparin Therapy. For monitoring Heparin Therapy, use the Heparin Assay. Performed By: #### 3 4529-8 ####ANDI Cotter ([id number])[facility])[address] [place] [address] 64487 Phosphateon 03-19-2024 Phosphate [Mass/Vol] 3.6 mg/dL Normal 2.5-4.9 [facility] Comment on above: Result Comment: The performance characteristics of phosphorus testing in heparinized plasma have been validated by the individual laboratory site where testing is performed. Testing on heparinized plasma is not approved by the FDA; however, such approval is not necessary. Performed By: #### 2 777-1 ####ANDI Cotter (91529)[facility])[address] [place] [address] 71761 CBC panel Auto (Bld)on 03-18 Erythrocyte distribution width (RBC) [Ratio] 14.5 % Normal 11.5-14.5 [facility] Comment on above: Performed By: #### 5 8410-2 ####ANDI Cotter ([id number])[facility])[address] [place] [address] 63178 Hematocrit (Bld) [Volume fraction] 32.8 % Low 36.0-46.0 [facility] Comment on above: Performed By: #### 5 8410-2 ####ANDI Cotter ([id number])[facility])[address] [place] [address] 29612 Hemoglobin (Bld) [Mass/Vol] 10.2 g/dL Low 12.0-16.0 [facility] Comment on above: Performed By: #### 5 8410-2 ####ANDI Cotter ([id number])[facility])[address]00 [place] [address] MCH (RBC) [Entitic mass] 27.0 pg Normal 26.0-34.0 [facility] Comment on above: Performed By: #### 5 8410-2 ####ANDI Cotter ([id number])[facility])[address] [place] [address] 00259 MCHC (RBC) [Mass/Vol] 31.1 g/dL Low 32.0-36.0 [facility] Comment on above: Performed By: #### 5 8410-2 ####ANDI Cotter ([id number])[facility])[address] [place] [address] 49613 MCV (RBC) [Entitic vol] 87 fL Normal 80-100 [facility] Comment on above: Performed By: #### 5 8410-2 ####ANDI Cotter ([id number])[facility])[address] [place] [address] 83993 Nucleated RBC/100 WBC (Bld) [Ratio] 0.0 /100 WBCs Normal 0.0-0.0 [facility] Comment on above: Performed By: #### 5 8410-2 ####ANDI Cotter ([id number])[facility])[address] [place] [address] 52029 Platelets (Bld) [#/Vol] 282 x10*3/uL Normal 150-450 [facility] Comment on above: Performed By: #### 5 8410-2 ####ANDI Cotter ([id number])[facility])[address] [place] [address] 46627 RBC (Bld) [#/Vol] 3.78 x10*6/uL Low 4.00-5.20 [facility] Comment on above: Performed By: #### 5 8410-2 ####ANDI Cotter ([id number])[facility])[address] [place] [address] WBC (Bld) [#/Vol] 11.7 x10*3/uL High 4.4-11.3 [facility] Comment on above: Performed By: #### 5 8410-2 ####ANDI Cotter ([id number])[facility])[address]28 [place] [address] Comprehensive metabolic 2000 panelon 03-18-2024 Albumin BCP dye [Mass/Vol] 3.7 g/dL Normal 3.4-5.0 [facility] Comment on above: Performed By: #### 2 4323-8 ####ANDI Cotter ([id number])[facility])[address] [place] [address] ALP [Catalytic activity/Vol] 132 U/L High 33-110 [facility] Comment on above: Performed By: #### 2 4323-8 ####ANDI Cotter ([id number])[facility])[address]393 [place] [address] ALT With P-5'-P [Catalytic activity/Vol] 63 U/L High 7-45 [facility] Comment on above: Result Comment: Evelyn ents treated with Sulfasalazine may generate falsely decreased results for ALT. Performed By: #### 2 4323-8 ####ANDI Cotter ([id number])[facility])[address]35 [place] [address] Anion gap [Moles/Vol] 14 mmol/L Normal 10-20 [facility] Comment on above: Performed By: #### 2 4323-8 ####ANDI Cotter ([id number])[facility])[address] [place] [address] AST With P-5'-P [Catalytic activity/Vol] 33 U/L Normal 9-39 [facility] Comment on above: Performed By: #### 2 4323-8 ####ANDI Cotter ([id number])[facility])[address]758 [place] [address] Bilirubin [Mass/Vol] 0.7 mg/dL Normal 0.0-1.2 [facility] Comment on above: Performed By: #### 2 4323-8 ####ANDI CHAUDHARY L ([id number])[facility])[address] [place] [address] Calcium [Mass/Vol] 8.8 mg/dL Normal 8.6-10.6 [facility] Comment on above: Performed By: #### 2 4323-8 ####ANDI CHAUDHARY L ([id number])[facility])[address] [place] [address] Chloride [Moles/Vol] 99 mmol/L Normal 98-107 [facility] Comment on above: Performed By: #### 2 4323-8 ####ANDI CHAUDHARY L ([id number])[facility])[address] [place] [address] CO2 [Moles/Vol] 24 mmol/L Normal 21-32 [facility] Comment on above: Performed By: #### 2 4323-8 ####ANDI CHAUDHARY L ([id number])[facility] ([facility])[address] [place] [address] Creatinine [Mass/Vol] 0.47 mg/dL Low 0.50-1.05 [facility] Comment on above: Performed By: #### 2 4323-8 ####ANDI CHAUDHARY L ([id number])[facility] ([facility])[address] [place], [place] [address] GFR/1.73 sq M.predicted MDRD (S/P/Bld) [Vol rate/Area] mL/min/{1.73_m2} Normal >60 [facility] Comment on above: Result Comment: Calc ulations of estimated GFR are performed using the 2020 CKD-EPI Study Refit equation without the race variable for the IDMS-Traceable creatinine methods.https://jasn.asnjournals.org/content// N.6277814008 Performed By: #### 2 4323-8 ####ANDI Cotter ([id number])[facility])[address] [place] [address] Glucose [Mass/Vol] 169 mg/dL High 74-99 [facility] Comment on above: Performed By: #### 2 4323-8 ####ANDI Cotter ([id number])[facility])[address] [place] [address] Potassium [Moles/Vol] 3.7 mmol/L Normal 3.5-5.3 [facility] Comment on above: Performed By: #### 2 4323-8 ####ANDI Cotter ([id number])[facility])[address] [place] [address] Protein [Mass/Vol] 7.5 g/dL Normal 6.4-8.2 [facility] Comment on above: Performed By: #### 2 4323-8 ####ANDI Cotter ([id number])[facility])[address] [place] [address] Sodium [Moles/Vol] 133 mmol/L Low 136-145 [facility] Comment on above: Performed By: #### 2 4323-8 ####ANDI Cotter ([id number])[facility])[address] [place] [address] Urea nitrogen [Mass/Vol] 8 mg/dL Normal 6-23 [facility] Comment on above: Performed By: #### 2 4323-8 ####ANDI CHAUDHARY L ([id number])[facility])[address] [place] [address] Glucose Test strip manual (B ld) [Mass/Vol]on 03-18-2024 Glucose [Mass/Vol] 159 mg/dL High 74-99 [facility] Comment on above: Performed By: #### 2 341-6 ####ANDI Cotter ([id number])[facility])[address] [place] [address] Glucose [Mass/Vol] 159 mg/dL High 74[address] [place] [address] Comment on above: Performed By: #### 2 341-6 ####ANDI MADRIDTZER L ([id number])[facility])[address] [place] [address] Glucose [Mass/Vol] 156 mg/dL High [address] [place] [address] Comment on above: Performed By: #### 2 341-6 ####ANDI Cotter ([id number])[facility])[address] [place] [address] Glucose [Mass/Vol] 150 mg/dL High [address] [place] [address] Comment on above: Performed By: #### 2 341-6 ####ANDI Cotter ([id number])[facility])[address] [place] [address] Heparin.unfractionatedon Heparin unfractionated Chromogenic method Qn (PPP) 0.5 IU/mL Normal See Comment Below for Therapeutic Ranges [facility] Comment on above: Order Comment: Obtai n 4 hours after any Heparin dosage change. Nursing to release order.The therapeutic reference range for UFH may be either 0.3-0.6 IU/mL or 0.3-0.7 IU/mL based on the clinical setting for anticoagulant therapy and the associated nomogram used. For Heparin dosing guidelines based on clinical scenario and Heparin Assay results, please refer to local Pharmacy and the [facility] Guidelines for Anticoagulation Therapy available on the [facility] intranet at: [email or web address] Performed By: #### 3 274-8 ####ANDI CHAUDHARY L ([id number])[facility])[address] [place] [address] Magnesiumon 03-18-2024 Magnesium [Mass/Vol] 2.32 mg/dL Normal 1.60-2.40 [facility] Comment on above: Performed By: #### 1 9123-9 ####ANDI Cotter ([id number])[facility])[address] [place] [address] PT and aPTT panel Coag (PPP) on 03-18-2024 aPTT Coag (PPP) [Time] 115 s Critically high 27-38 [facility] Comment on above: Order Comment: The A PTT is no longer used for monitoring Unfractionated Heparin Therapy. For monitoring Heparin Therapy, use the Heparin Assay. Performed By: #### 3 4529-8 ####ANDI Cotter ([id number])[facility])[address] [place] [address] INR Coag (PPP) [Relative time] 1.5 High 0.9-1.1 [facility] Comment on above: Order Comment: The A PTT is no longer used for monitoring Unfractionated Heparin Therapy. For monitoring Heparin Therapy, use the Heparin Assay. Performed By: #### 3 4529-8 ####ANDI Cotter ([id number])[facility])[address] [place] [address] PT Coag (PPP) [Time] 16.7 s High 9.8-12.8 [facility] Comment on above: Order Comment: The A PTT is no longer used for monitoring Unfractionated Heparin Therapy. For monitoring Heparin Therapy, use the Heparin Assay. Performed By: #### 3 4529-8 ####ANDI Cotter ([id number])[facility])[address] [place] [address] Phosphateon 03-18-2024 Phosphate [Mass/Vol] 2.6 mg/dL Normal 2.5-4.9 [facility] Comment on above: Result Comment: The performance characteristics of phosphorus testing in heparinized plasma have been validated by the individual laboratory site where testing is performed. Testing on heparinized plasma is not approved by the FDA; however, such approval is not necessary. Performed By: #### 2 777-1 ####ANDI Cotter ([id number])[facility])[address] [place] [address] Coagulation tissue factor in ducedon 03-17-2024 PT Coag (PPP) [Time] 16.5 s High 9.8-12.8 [facility] Comment on above: Performed By: #### 5 902-2 ####BRYAN EZRA ([id number])[facility])[address] [place] [address] Comprehensive metabolic 2000 panelon 03-17-2024 Albumin BCP dye [Mass/Vol] 3.1 g/dL Low 3.4-5.0 [facility] Comment on above: Performed By: #### 2 4323-8 ####ANDI Cotter ([id number])[facility])[address] [place] [address] ALP [Catalytic activity/Vol] 115 U/L High 33-110 [facility] Comment on above: Performed By: #### 2 4323-8 ####ANDI Cotter ([id number])[facility])[address] [place] [address] ALT With P-5'-P [Catalytic activity/Vol] 57 U/L High 7-45 [facility] Comment on above: Result Comment: Evelyn ents treated with Sulfasalazine may generate falsely decreased results for ALT. Performed By: #### 2 4323-8 ####ANDI Cotter ([id number])[facility])[address] [place] [address] Anion gap [Moles/Vol] 14 mmol/L Normal 10-20 [facility] Comment on above: Performed By: #### 2 4323-8 ####ANDI Cotter ([id number])[facility])[address] [place] [address] AST With P-5'-P [Catalytic activity/Vol] 48 U/L High 9-39 [facility] Comment on above: Performed By: #### 2 4323-8 ####ANDI Cotter ([id number])[facility])[address] [place] [address] Bilirubin [Mass/Vol] 0.8 mg/dL Normal 0.0-1.2 [facility] Comment on above: Performed By: #### 2 4323-8 ####ANDI Cotter ([id number])[facility])[address] [place] [address] Calcium [Mass/Vol] 7.3 mg/dL Low 8.6-10.6 [facility] Comment on above: Performed By: #### 2 4323-8 ####ANDI Cotter ([id number])[facility])[address] [place] [address] Chloride [Moles/Vol] 104 mmol/L Normal 98-107 [facility] Comment on above: Performed By: #### 2 4323-8 ####ANDI Cotter ([id number])[facility])[address] [place] [address] CO2 [Moles/Vol] 21 mmol/L Normal 21-32 [facility] Comment on above: Performed By: #### 2 4323-8 ####ANDI Cotter ([id number])[facility])[address] [place] [address] Creatinine [Mass/Vol] 0.46 mg/dL Low 0.50-1.05 [facility] Comment on above: Performed By: #### 2 4323-8 ####ANDI Cotter ([id number])[facility])[address] [place] [address] GFR/1.73 sq M.predicted MDRD (S/P/Bld) [Vol rate/Area] mL/min/{1.73_m2} Normal >60 [facility] Comment on above: Result Comment: Calc ulations of estimated GFR are performed using the 2020 CKD-EPI Study Refit equation without the race variable for the IDMS-Traceable creatinine methods.https://jasn.asnjournals.org/content// N.[id number] Performed By: #### 2 4323-8 ####ANDI RENEEER L ([id number])[facility])[address] [place] [address] Glucose [Mass/Vol] 149 mg/dL High 74-99 [facility] Comment on above: Performed By: #### 2 4323-8 ####ANDI RAJPUTMOTZER L ([id number])[facility])[address] [place] [address] Potassium [Moles/Vol] 3.1 mmol/L Low 3.5-5.3 [facility] Comment on above: Performed By: #### 2 4323-8 ####ANDI RAJPUTMOTZER L ([id number])[facility])[address] [place] [address] Protein [Mass/Vol] 6.2 g/dL Low 6.4-8.2 [facility] Comment on above: Performed By: #### 2 4323-8 ####ANDI RAJPUTMOTZER L ([id number])[facility])[address] [place] [address] Sodium [Moles/Vol] 136 mmol/L Normal 136-145 [facility] Comment on above: Performed By: #### 2 4323-8 ####ANDI SCHMOTZER L ([id number])[facility])[address] [place] [address] Urea nitrogen [Mass/Vol] 8 mg/dL Normal 6-23 [facility] Comment on above: Performed By: #### 2 4323-8 ####ANDI RAJPUTMOTZER L ([id number])[facility])[address] [place] [address] ECG 12-LEADon 03-17-2024 ECG 12-LEAD Ventricular Rate 99 Atrial Rate 99 P-R Interval 136 QRS Duration 80 Q-T Interval 340 QTC Calculation(Bazett) 436 P [place] 33 R [place] -5 T [place] 34 QRS Count 16 Q Onset 211 P Onset 143 P Offset 194 T Offset 381 QTC Fredericia 401 Diagnosis Normal sinus rhythm Normal ECG When compared with ECG of 05-MAR-2024 17:23, No significant change was found See ED provider note for full interpretation and clinical correlation Confirmed by Hemalatha Lange ([id number]) on 03/24/2024 4:40:33 PM Normal [facility] Glucose Test strip manual (B ld) [Mass/Vol]on 03-17-2024 Glucose [Mass/Vol] 180 mg/dL High [address] [place] [address] Comment on above: Performed By: #### 2 341-6 ####ANDI Cotter ([id number])[facility])[address] [place] [address] Glucose [Mass/Vol] 173 mg/dL High [address] [place] [address] Comment on above: Performed By: #### 2 341-6 ####ANDI Cotter ([id number])[facility])[address] [place] [address] Glucose [Mass/Vol] 181 mg/dL High [address] [place] [address] Comment on above: Performed By: #### 2 341-6 ####IRVIN MUNGUIA ([id number])[facility])[address] [place] [address] Heparin.unfractionatedon Heparin unfractionated Chromogenic method Qn (PPP) 0.5 IU/mL Normal See Comment Below for Therapeutic Ranges [facility] Comment on above: Order Comment: Obtai n 4 hours after initiation of heparin infusion. Nursing to release order.The therapeutic reference range for UFH may be either 0.3-0.6 IU/mL or 0.3-0.7 IU/mL based on the clinical setting for anticoagulant therapy and the associated nomogram used. For Heparin dosing guidelines based on clinical scenario and Heparin Assay results, please refer to local Pharmacy and the [facility] Guidelines for Anticoagulation Therapy available on the [facility] intranet at: [email or web address] Performed By: #### 3 274-8 ####ANDI Cotter ([id number])[facility])[address] [place] [address] Magnesiumon 03-17-2024 Magnesium [Mass/Vol] 1.63 mg/dL Normal 1.60-2.40 [facility] Comment on above: Performed By: #### 1 9123-9 ####ANDI Cotter ([id number])[facility])[address] [place] [address] PT Coag (PPP) [Time]on 03-17 INR Coag (PPP) [Relative time] 1.4 High 0.9-1.1 [facility] Comment on above: Performed By: #### 5 902-2 ####BRYAN EZRA ([id number])[facility])[address] [place] [address] PT and aPTT panel Coag (PPP) on 03-17-2024 aPTT Coag (PPP) [Time] 24 s Low 27-38 [facility] Comment on above: Order Comment: The A PTT is no longer used for monitoring Unfractionated Heparin Therapy. For monitoring Heparin Therapy, use the Heparin Assay. Performed By: #### 3 4529-8 ####ANDI Cotter ([id number])[facility])[address] [place] [address] INR Coag (PPP) [Relative time] 1.5 High 0.9-1.1 [facility] Comment on above: Order Comment: The A PTT is no longer used for monitoring Unfractionated Heparin Therapy. For monitoring Heparin Therapy, use the Heparin Assay. Performed By: #### 3 4529-8 ####ANDI Cotter ([id number])[facility])[address] [place] [address] PT Coag (PPP) [Time] 17.2 s High 9.8-12.8 [facility] Comment on above: Order Comment: The A PTT is no longer used for monitoring Unfractionated Heparin Therapy. For monitoring Heparin Therapy, use the Heparin Assay. Performed By: #### 3 4529-8 ####ANDI Cotter ([id number])[facility])[address] [place] [address] Phosphateon 03-17-2024 Phosphate [Mass/Vol] 2.9 mg/dL Normal 2.5-4.9 [facility] Comment on above: Result Comment: The performance characteristics of phosphorus testing in heparinized plasma have been validated by the individual laboratory site where testing is performed. Testing on heparinized plasma is not approved by the FDA; however, such approval is not necessary. Performed By: #### 2 777-1 ####ANDI Cotter ([id number])[facility])[address] [place] [address] XR ABDOMEN 1 VIEWon 03-17-20 24 XR ABDOMEN 1 VIEW Normal [facility] Amylaseon 03-16-2024 Amylase [Catalytic activity/Vol] 76 U/L Normal 29-103 [facility] Comment on above: Performed By: #### 1 798-8 ####IRVIN MUNGUIA ([id number])[facility])[address] [place] [address] CBC W Auto Differential pane l (Bld)on 03-16-2024 Basophils (Bld) [#/Vol] 0.04 x10*3/uL Normal 0.00-0.10 [facility] Comment on above: Performed By: #### 5 7021-8 ####IRVIN MUNGUIA ([id number])[facility])[address] [place] [address] Basophils/100 WBC (Bld) 0.3 % Normal 0.0-2.0 [facility] Comment on above: Performed By: #### 5 7021-8 ####IRVIN MUNGUIA ([id number])[facility])[address] [place] [address] Eosinophils (Bld) [#/Vol] 0.11 x10*3/uL Normal 0.00-0.70 [facility] Comment on above: Performed By: #### 5 7021-8 ####IRVIN MUNGUIA ([id number])[facility])[address] [place], [place] [address] Eosinophils/100 WBC (Bld) 0.8 % Normal 0.0-6.0 [facility] Comment on above: Performed By: #### 5 7021-8 ####IRVIN MUNGUIA ([id number])[facility])[address] [place] [address] Erythrocyte distribution width (RBC) [Ratio] 14.2 % Normal 11.5-14.5 [facility] Comment on above: Performed By: #### 5 7021-8 ####IRVIN MUNGUIA ([id number])[facility])[address] [place] [address] Hematocrit (Bld) [Volume fraction] 36.8 % Normal 36.0-46.0 [facility] Comment on above: Performed By: #### 5 7021-8 ####IRVIN MUNGUIA ([id number])[facility])[address] [place] [address] Hemoglobin (Bld) [Mass/Vol] 11.3 g/dL Low 12.0-16.0 [facility] Comment on above: Performed By: #### 5 7021-8 ####IRVIN MUNGUIA ([id number])[facility])[address] [place] [address] Immature granulocytes (Bld) [#/Vol] 0.11 x10*3/uL Normal 0.00-0.70 [facility] Comment on above: Performed By: #### 5 7021-8 ####IRVIN MUNGUIA ([id number])[facility])[address] [place] [address] Immature granulocytes/100 WBC (Bld) 0.8 % Normal 0.0-0.9 [facility] Comment on above: Result Comment: Debbie ture Granulocyte Count (IG) includes promyelocytes, myelocytes and metamyelocytes but does not include bands. Percent differential counts (%) should be interpreted in the context of the absolute cell counts (cells/UL). Performed By: #### 5 7021-8 ####IRVIN MUNGUIA ([id number])[facility])[address] [place] [address] Lymphocytes (Bld) [#/Vol] 2.72 x10*3/uL Normal 1.20-4.80 [facility] Comment on above: Performed By: #### 5 7021-8 ####IRVIN MUNGUIA ([id number])[facility])[address] [place] [address] Lymphocytes/100 WBC (Bld) 20.3 % Normal 13.0-44.0 [facility] Comment on above: Performed By: #### 5 7021-8 ####IRVIN UMNGUIA ([id number])[facility])[address] [place] [address]88 MCH (RBC) [Entitic mass] 26.8 pg Normal 26.0-34.0 [facility] Comment on above: Performed By: #### 5 7021-8 ####IRVIN MUNGUIA ([id number])[facility])[address] [place] [address]18 MCHC (RBC) [Mass/Vol] 30.7 g/dL Low 32.0-36.0 [facility] Comment on above: Performed By: #### 5 7021-8 ####IRVIN MUNGUIA ([id number])[facility])[address] [place] [address] 83631 MCV (RBC) [Entitic vol] 87 fL Normal 80-100 [facility] Comment on above: Performed By: #### 5 7021-8 ####IRVIN MUNGUIA ([id number])[facility])[address] [place] [address]3446 Monocytes (Bld) [#/Vol] 0.62 x10*3/uL Normal 0.10-1.00 [facility] Comment on above: Performed By: #### 5 7021-8 ####IRVIN MUNGUIA ([id number])[facility])[address] [place] [address] 19297 Monocytes/100 WBC (Bld) 4.6 % Normal 2.0-10.0 [facility] Comment on above: Performed By: #### 5 7021-8 ####IRVIN MUNGUIA ([id number])[facility])[address] [place] [address] 693[address] Neutrophils (Bld) [#/Vol] 9.77 x10*3/uL High 1.20-7.70 [facility] Comment on above: Result Comment: Perc ent differential counts (%) should be interpreted in the context of the absolute cell counts (cells/uL). Performed By: #### 5 7021-8 ####IRVIN MUNGUIA ([id number])[facility])[address] [place] [address] 10866 Neutrophils/100 WBC (Bld) 73.2 % Normal 40.0-80.0 [facility] Comment on above: Performed By: #### 5 7021-8 ####IRVIN MUNGUIA ([id number])[facility])[address] [place] [address] 48723 Nucleated RBC/100 WBC (Bld) [Ratio] 0.0 /100 WBCs Normal 0.0-0.0 [facility] Comment on above: Performed By: #### 5 7021-8 ####IRVIN MUNGUIA ([id number])[facility])[address] [place] [address] 22992 Platelets (Bld) [#/Vol] 322 x10*3/uL Normal 150-450 [facility] Comment on above: Performed By: #### 5 7021-8 ####IRVIN MUNGUIA ([id number])[facility])[address] [place] [address] RBC (Bld) [#/Vol] 4.21 x10*6/uL Normal 4.00-5.20 [facility] Comment on above: Performed By: #### 5 7021-8 ####IRVIN MUNGUIA ([id number])[facility])[address] [place] [address] WBC (Bld) [#/Vol] 13.4 x10*3/uL High 4.4-11.3 [facility] Comment on above: Performed By: #### 5 7021-8 ####IRVIN MUNGUIA ([id number])[facility])[address] [place] [address] CT ABDOMEN PELVIS W IV CONTR Reny 03-16-2024 CT ABDOMEN PELVIS W IV CONTRAST Normal [facility] Comprehensive metabolic 2000 panelon 03-16-2024 Albumin BCP dye [Mass/Vol] 3.7 g/dL Normal 3.4-5.0 [facility] Comment on above: Performed By: #### 2 4323-8 ####IRVIN MUNGUIA ([id number])[facility])[address] [place] [address] ALP [Catalytic activity/Vol] 129 U/L High 33-110 [facility] Comment on above: Performed By: #### 2 4323-8 ####IRVIN MUNGUIA ([id number])[facility])[address] [place] [address] ALT With P-5'-P [Catalytic activity/Vol] 54 U/L High 7-45 [facility] Comment on above: Result Comment: Evelyn ents treated with Sulfasalazine may generate falsely decreased results for ALT. Performed By: #### 2 4323-8 ####IRVIN MUNGUIA ([id number])[facility])[address] [place] [address] Anion gap [Moles/Vol] 12 mmol/L Normal 10-20 [facility] Comment on above: Performed By: #### 2 4323-8 ####IRVIN MUNGUIA ([id number])[facility])[address] [place] [address] AST With P-5'-P [Catalytic activity/Vol] 47 U/L High 9-39 [facility] Comment on above: Performed By: #### 2 4323-8 ####IRVIN MUNGUIA ([id number])[facility])[address] [place] [address] 41610 Bilirubin [Mass/Vol] 0.3 mg/dL Normal 0.0-1.2 [facility] Comment on above: Performed By: #### 2 4323-8 ####IRVIN MUNGUIA ([id number])[facility])[address] [place] [address] 34804 Calcium [Mass/Vol] 8.7 mg/dL Normal 8.6-10.3 [facility] Comment on above: Performed By: #### 2 4322-8 ####IRVIN MUNGUIA ([id number])[facility])[address] [place] [address] 86905 Chloride [Moles/Vol] 100 mmol/L Normal 98-107 [facility] Comment on above: Performed By: #### 2 432-8 ####IRVIN MUNGUIA ([id number])[facility])[address] [place] [address] 06545 CO2 [Moles/Vol] 25 mmol/L Normal 21-32 [facility] Comment on above: Performed By: #### 2 4323-8 ####IRVIN MUNGUIA ([id number])[facility] [place] [address] 39799 Creatinine [Mass/Vol] 0.67 mg/dL Normal 0.50-1.05 [facility] Comment on above: Performed By: #### 2 4323-8 ####IRVIN MUNGUIA ([id number])[facility] [place] [address] 85693 GFR/1.73 sq M.predicted MDRD (S/P/Bld) [Vol rate/Area] mL/min/{1.73_m2} Normal >60 [facility] Comment on above: Result Comment: Calc ulations of estimated GFR are performed using the 2020 CKD-EPI Study Refit equation without the race variable for the IDMS-Traceable creatinine methods.https://jasn.asnjournals.org/content/early/ N.5465425431 Performed By: #### 2 4323-8 ####IRVIN MUNGUIA ([id number])[facility] [facility])[address] [place] [address] 42883 Glucose [Mass/Vol] 174 mg/dL High 74-99 [facility] Comment on above: Performed By: #### 2 4323-8 ####IRVIN MUNGUIA ([id number])[facility])[address] [place] [address] 64018 Potassium [Moles/Vol] 3.5 mmol/L Normal 3.5-5.3 [facility] Comment on above: Performed By: #### 2 4323-8 ####IRVIN MUNGUIA ([id number])[facility])[address] [place] [address] 13013 Protein [Mass/Vol] 7.0 g/dL Normal 6.4-8.2 [facility] Comment on above: Performed By: #### 2 4323-8 ####IRVIN MUNGUIA ([id number])[facility])[address] [place] [address] 82041 Sodium [Moles/Vol] 133 mmol/L Low 136-145 [facility] Comment on above: Performed By: #### 2 4323-8 ####IRVIN MUNGUIA ([id number])[facility])[address] [place] [address] 23192 Urea nitrogen [Mass/Vol] 17 mg/dL Normal 6-23 [facility] Comment on above: Performed By: #### 2 4323-8 ####IRVIN MUNGUIA ([id number])[facility])[address] [place] [address] 34281 Lactateon 03-16-2024 Lactate [Moles/Vol] 1.7 mmol/L Normal 0.4-2.0 [facility] Comment on above: Order Comment: Venip uncture immediately after or during the administration of Metamizole may lead to falsely low results. Testing should be performed immediatelyprior to Metamizole dosing. Performed By: #### 2 524-7 ####IRVIN MUNGUIA ([id number])[facility])[address] [place] [address] Magnesiumon 03-16-2024 Magnesium [Mass/Vol] 1.91 mg/dL Normal 1.60-2.40 [facility] Comment on above: Performed By: #### 1 9123-9 ####IRVIN MUNGUIA ([id number])[facility])[address] [place], [place] [id number] Triacylglycerol lipaseon Lipase [Catalytic activity/Vol] 65 U/L Normal 9-82 [facility] Comment on above: Order Comment: Venip uncture immediately after or during the administration of Metamizole may lead to falsely low results. Testing should be performed immediately prior to Metamizole dosing. Performed By: #### 3 040-3 ####IRVIN MUNGUIA ([id number])[facility])[address] [place], [place] [phone] Urinalysis complete W Reflex Culture panel (U)on 03-16-2024 Appearance (U) Turbid Normal Clear [facility] Comment on above: Performed By: #### 5 8077-9 ####IRVIN MUNGUIA ([id number])[facility])[address] [place], [place] [phone] Bilirubin (U) [Mass/Vol] Negative Normal NEGATIVE [facility] Comment on above: Performed By: #### 5 8077-9 ####IRVIN MUNGUIA ([id number])[facility])[address] [place] [address] Calcium oxalate crystals Computer assisted (U) [#/Area] 4+ /HPF Abnormal NONE, 1+ [facility] Comment on above: Performed By: #### 5 8077-9 ####IRVIN MUNGUIA ([id number])[facility])[address] [place] [address] Color (U) Yellow Normal Light-Yellow , Yellow, Dark-Yellow [facility] Comment on above: Performed By: #### 5 8077-9 ####IRVIN MUNGUIA ([id number])[facility])[address] [place] [address] Epithelial cells.squamous Auto (Urine sed) [#/Area] 1-9 (SPARSE) Normal Reference range not established. [facility] Comment on above: Performed By: #### 5 8077-9 ####IRVIN MUNGUIA ([id number])[facility])[address] [place] [address] Glucose Auto test strip (U) [Mass/Vol] Normal Normal Normal [facility] Comment on above: Performed By: #### 5 8077-9 ####IRVIN MUNGUIA ([id number])[facility])[address] [place] [address] Ketones (U) [Mass/Vol] Negative Normal NEGATIVE [facility] Comment on above: Performed By: #### 5 8077-9 ####IRVIN MUNGUIA ([id number])[facility])[address] [place], [place] [phone] Leukocyte esterase Auto test strip Ql (U) Negative Normal NEGATIVE [facility] Comment on above: Performed By: #### 5 8077-9 ####IRVIN MUNGUIA ([id number])[facility])[address] [place], [place] [phone] Mucus Auto (Urine sed) [#/Area] FEW Normal Reference range not established. [facility] Comment on above: Performed By: #### 5 8077-9 ####IRVIN MUNGUIA ([id number])[facility])[address] [place] [address] Nitrite Auto test strip Ql (U) Negative Normal NEGATIVE [facility] Comment on above: Performed By: #### 5 8077-9 ####IRVIN MUNGUIA ([id number])[facility])[address] [place] [address] pH (U) 7.0 [pH] Normal 5.0, 5.5, 6.0, 6.5, 7.0, 7.5, 8.0 [facility] Comment on above: Performed By: #### 5 8077-9 ####IRVIN MUNGUIA ([id number])[facility])[address] [place] [address] Protein (U) [Mass/Vol] 20 (TRACE) Normal NEGATIVE, 10 (TRACE), 20 (TRACE) [facility] Comment on above: Performed By: #### 5 8077-9 ####IRVIN MUNGUIA ([id number])[facility])[address] [place] [address] RBC (U) [#/Vol] Negative Normal NEGATIVE [facility] Comment on above: Performed By: #### 5 8077-9 ####IRVIN MUNGUIA ([id number])[facility])[address] [place] [address] RBC Auto (Urine sed) [#/Area] 3-5 Normal NONE, 1-2, 3-5 [facility] Comment on above: Performed By: #### 5 8077-9 ####IRVIN MUNGUIA ([id number])[facility])[address] [place], [place] [phone] Specific gravity (U) [Rel density] 1.028 Normal 1.005-1.035 [facility] Comment on above: Performed By: #### 5 8077-9 ####IRVIN MUNGUIA ([id number])[facility])[address] [place] [address] Urobilinogen (U) [Mass/Vol] 3 (1+) Abnormal Normal [facility] Comment on above: Result Comment: Some pigments and medications may cause a false positive urobilinogen. Performed By: #### 5 8077-9 ####IRVIN MUNGUIA ([id number])[facility])[address] [place] [address] 59847 WBC Auto (Urine sed) [#/Area] 1-5 Normal 1-5, [facility] Comment on above: Performed By: #### 5 8077-9 ####IRVIN MUNGUIA ([id number])[facility])[address] [place] [address] 30023 Basic metabolic 2000 panelon 03-11-2024 Anion gap [Moles/Vol] 14 mmol/L Normal 10-20 [facility] Comment on above: Performed By: #### 2 4321-2 ####IRVIN MUNGUIA ([id number])[facility])[address] [place] [address] 46017 Calcium [Mass/Vol] 9.0 mg/dL Normal 8.6-10.3 [facility] Comment on above: Performed By: #### 2 4321-2 ####IRVIN MUNGUIA ([id number])[facility])[address] [place] [address] 78164 Chloride [Moles/Vol] 102 mmol/L Normal 98-107 [facility] Comment on above: Performed By: #### 2 4321-2 ####IRVIN MUNGUIA ([id number])[facility])[address] [place] [address] 10818 CO2 [Moles/Vol] 25 mmol/L Normal 21-32 [facility] Comment on above: Performed By: #### 2 4321-2 ####IRVIN MUNGUIA ([id number])[facility])[address] [place] [address] 09420 Creatinine [Mass/Vol] 0.89 mg/dL Normal 0.50-1.05 [facility] Comment on above: Performed By: #### 2 4321-2 ####IRVIN MUNGUIA ([id number])[facility])[address] [place] [address] 24107 Glomerular filtration rate/1.73 sq M.predicted 80 mL/min/1.73m*2 Normal >60 [facility] Comment on above: Result Comment: Calc ulations of estimated GFR are performed using the 2020 CKD-EPI Study Refit equation without the race variable for the IDMS-Traceable creatinine methods.https://jasn.asnjournals.org/content/early/ N.3701938961 Performed By: #### 2 4321-2 ####IRVIN MUNGUIA ([id number])[facility])[address] [place] [address] 14084 Glucose [Mass/Vol] 159 mg/dL High 74-99 [facility] Comment on above: Performed By: #### 2 4321-2 ####IRVIN MUNGUIA ([id number])[facility])[address] [place] [address] 25613 Potassium [Moles/Vol] 4.1 mmol/L Normal 3.5-5.3 [facility] Comment on above: Performed By: #### 2 4321-2 ####IRVIN MUNGUIA ([id number])[facility])[address] [place] [address] 85524 Sodium [Moles/Vol] 137 mmol/L Normal 136-145 [facility] Comment on above: Performed By: #### 2 4321-2 ####IRVIN MUNGUIA ([id number])[facility])[address] [place] [address] 13528 Urea nitrogen [Mass/Vol] 10 mg/dL Normal 6-23 [facility] Comment on above: Performed By: #### 2 4321-2 ####IRVIN MUNGUIA ([id number])[facility])[address] [place] [address] 86673 CBC W Auto Differential pane l (Bld)on 03-11-2024 Basophils (Bld) [#/Vol] 0.05 x10*3/uL Normal 0.00-0.10 [facility] Comment on above: Performed By: #### 5 7021-8 ####IRVIN MUNGUIA ([id number])[facility])[address] [place] [address] 80550 Basophils/100 WBC (Bld) 0.5 % Normal 0.0-2.0 [facility] Comment on above: Performed By: #### 70-8 ####IRVIN MUNGUIA ([id number])[facility])[address] [place] [address] 87448 Eosinophils (Bld) [#/Vol] 0.13 x10*3/uL Normal 0.00-0.70 [facility] Comment on above: Performed By: #### 7021-8 ####IRVIN MUNGUIA ([id number])[facility])[address] [place] [address] 92842 Eosinophils/100 WBC (Bld) 1.4 % Normal 0.0-6.0 [facility] Comment on above: Performed By: #### 7021-8 ####IRVIN MUNGUIA ([id number])[facility])[address] [place] [address] 85624 Erythrocyte distribution width (RBC) [Ratio] 13.8 % Normal 11.5-14.5 [facility] Comment on above: Performed By: #### 7021-8 ####IRVIN MUNGUIA ([id number])[facility])[address] [place] [address] 42772 Hematocrit (Bld) [Volume fraction] 35.9 % Low 36.0-46.0 [facility] Comment on above: Performed By: #### 7021-8 ####IRVIN MUNGUIA ([id number])[facility])[address] [place] [address] 43109 Hemoglobin (Bld) [Mass/Vol] 11.0 g/dL Low 12.0-16.0 [facility] Comment on above: Performed By: #### 7021-8 ####IRVIN MUNGUIA ([id number])[facility])[address] [place] [address] 71862 Immature granulocytes (Bld) [#/Vol] 0.08 x10*3/uL Normal 0.00-0.70 [facility] Comment on above: Performed By: #### 5 7021-8 ####IRVIN MUNGUIA ([id number])[facility])[address] [place] [address] 53481 Immature granulocytes/100 WBC (Bld) 0.9 % Normal 0.0-0.9 [facility] Comment on above: Result Comment: Debbie ture Granulocyte Count (IG) includes promyelocytes, myelocytes and metamyelocytes but does not include bands. Percent differential counts (%) should be interpreted in the context of the absolute cell counts (cells/UL). Performed By: #### 5 7021-8 ####IRVIN MUNGUIA ([id number])[facility])[address] [place] [address] 77902 Lymphocytes (Bld) [#/Vol] 2.44 x10*3/uL Normal 1.20-4.80 [facility] Comment on above: Performed By: #### 5 7021-8 ####IRVIN MUNGUIA ([id number])[facility])[address] [place] [address] 59645 Lymphocytes/100 WBC (Bld) 26.3 % Normal 13.0-44.0 [facility] Comment on above: Performed By: #### 5 7021-8 ####IRVIN MUNGUIA ([id number])[facility])[address] [place] [address] 12320 MCH (RBC) [Entitic mass] 26.9 pg Normal 26.0-34.0 [facility] Comment on above: Performed By: #### 5 7021-8 ####IRVIN MUNGUIA ([id number])[facility])[address] [place] [address] 63173 MCHC (RBC) [Mass/Vol] 30.6 g/dL Low 32.0-36.0 [facility] Comment on above: Performed By: #### 5 7021-8 ####IRVIN MUNGUIA ([id number])[facility])[address] [place] [address] 27904 MCV (RBC) [Entitic vol] 88 fL Normal 80-100 [facility] Comment on above: Performed By: #### 5 7021-8 ####IRVIN MUNGUIA ([id number])[facility])[address] [place] [address] 13403 Monocytes (Bld) [#/Vol] 0.54 x10*3/uL Normal 0.10-1.00 [facility] Comment on above: Performed By: #### 5 7021-8 ####IRVIN MUNGUIA ([id number])[facility])[address] [place] [address] 52605 Monocytes/100 WBC (Bld) 5.8 % Normal 2.0-10.0 [facility] Comment on above: Performed By: #### 5 7021-8 ####IRVIN MUNGUIA ([id number])[facility])[address] [place] [address] 59008 Neutrophils (Bld) [#/Vol] 6.04 x10*3/uL Normal 1.20-7.70 [facility] Comment on above: Result Comment: Perc ent differential counts (%) should be interpreted in the context of the absolute cell counts (cells/uL). Performed By: #### 5 7021-8 ####IRVIN MUNGUIA ([id number])[facility])[address] [place] [address] 38299 Neutrophils/100 WBC (Bld) 65.1 % Normal 40.0-80.0 [facility] Comment on above: Performed By: #### 5 7021-8 ####IRVIN MUNGUIA ([id number])[facility])[address] [place] [address] 56917 Nucleated RBC/100 WBC (Bld) [Ratio] 0.0 /100 WBCs Normal 0.0-0.0 [facility] Comment on above: Performed By: #### 5 7021-8 ####IRVIN MUNGUIA ([id number])[facility])[address] [place] [address] 95926 Platelets (Bld) [#/Vol] 315 x10*3/uL Normal 150-450 [facility] Comment on above: Performed By: #### 5 7021-8 ####IRVIN MUNGUIA ([id number])[facility])[address] [place] [address] RBC (Bld) [#/Vol] 4.09 x10*6/uL Normal 4.00-5.20 [facility] Comment on above: Performed By: #### 5 7021-8 ####IRVIN MUNGUIA ([id number])[facility])[address] [place] [address] WBC (Bld) [#/Vol] 9.3 x10*3/uL Normal 4.4-11.3 [facility] Comment on above: Performed By: #### 5 7021-8 ####IRVIN MUNGUIA ([id number])[facility])[address] [place] [address] CT ABDOMEN PELVIS W IV CONTR Reny 03-11-2024 CT ABDOMEN PELVIS W IV CONTRAST Normal [facility] Coagulation surface inducedo n 03-11-2024 aPTT Coag (PPP) [Time] 51 s High 27-38 [facility] Comment on above: Order Comment: The A PTT is no longer used for monitoring Unfractionated Heparin Therapy. For monitoring Heparin Therapy, use the Heparin Assay. Performed By: #### 1 4979-9 ####IRVIN MUNGUIA ([id number])[facility])[address] [place] [address] Coagulation tissue factor in ducedon 03-11-2024 PT Coag (PPP) [Time] 50.8 s High 9.8-12.8 [facility] Comment on above: Performed By: #### 5 902-2 ####IRVIN MUNGUIA ([id number])[facility])[address] [place] [address] 74093 Hepatic function 2000 panelo n 03-11-2024 Albumin BCP dye [Mass/Vol] 3.9 g/dL Normal 3.4-5.0 [facility] Comment on above: Performed By: #### 2 4325-3 ####IRVIN MUNGUIA ([id number])[facility])[address] [place] [address] 28524 ALP [Catalytic activity/Vol] 152 U/L High 33-110 [facility] Comment on above: Performed By: #### 2 5-3 ####IRVIN MUNGUIA ([id number])[facility])[address] [place] [address] 76711 ALT With P-5'-P [Catalytic activity/Vol] 70 U/L High 7-45 [facility] Comment on above: Result Comment: Evelyn ents treated with Sulfasalazine may generate falsely decreased results for ALT. Performed By: #### 2 5-3 ####IRVIN MUNGUIA ([id number])[facility])[address] [place] [address] 25845 AST With P-5'-P [Catalytic activity/Vol] 54 U/L High 9-39 [facility] Comment on above: Performed By: #### 2 5-3 ####IRVIN MUNGUIA ([id number])[facility])[address] [place] [address] 51757 Bilirubin [Mass/Vol] 0.3 mg/dL Normal 0.0-1.2 [facility] Comment on above: Performed By: #### 2 5-3 ####IRVIN MUNGUIA ([id number])[facility])[address] [place] [address] 65659 Bilirubin.direct [Mass/Vol] 0.1 mg/dL Normal 0.0-0.3 [facility] Comment on above: Performed By: #### 2 5-3 ####IRVIN MUNGUIA ([id number])[facility])[address] [place] [address] 47774 Protein [Mass/Vol] 7.4 g/dL Normal 6.4-8.2 [facility] Comment on above: Performed By: #### 2 4325-3 ####IRVIN MUNGUIA ([id number])[facility])[address] [place] [address] PT Coag (PPP) [Time]on 03-11 INR Coag (PPP) [Relative time] 4.3 High 0.9-1.1 [facility] Comment on above: Performed By: #### 5 902-2 ####IRVIN MUNGUIA ([id number])[facility])[address] [place] [address] 47132 Triacylglycerol lipaseon Lipase [Catalytic activity/Vol] 32 U/L Normal 9-82 [facility] Comment on above: Order Comment: Venip uncture immediately after or during the administration of Metamizole may lead to falsely low results. Testing should be performed immediately prior to Metamizole dosing. Performed By: #### 3 040-3 ####IRVIN MUNGUIA ([id number])[facility])[address] [place] [address] 59549 APTTon 03-05-2024 aPTT Coag (PPP) [Time] 49 s High [facility] CBC panel Auto (Bld)on 03-05 Erythrocyte distribution width (RBC) [Ratio] 14.0 % 11.5 - 14.5 % [facility] Hematocrit (Bld) [Volume fraction] 38.9 % 36.0 - 46.0 % [facility] Hemoglobin (Bld) [Mass/Vol] 12.1 g/dL 12.0 - 16.0 g/dL [facility] Interpretation and review of laboratory results Abnormal [facility] MCH (RBC) [Entitic mass] 27.3 pg 26.0 - 34.0 pg [facility] MCHC (RBC) [Mass/Vol] 31.1 g/dL Low 32.0 - 36.0 g/dL [facility] MCV (RBC) [Entitic vol] 88 fL 80 - 100 fL [facility] Nucleated RBC/100 WBC (Bld) [Ratio] 0.0 % [facility] Platelets (Bld) [#/Vol] 310 10*3/uL [facility] RBC (Bld) [#/Vol] 4.43 10*6/uL [facility] WBC (Bld) [#/Vol] 12.2 10*3/uL High [facility] Erythrocyte distribution width (RBC) [Ratio] 14.0 % Normal 11.5-14.5 [facility] Comment on above: Performed By: #### 5 8410-2 ####IRVIN MUNGUIA ([id number])[facility])[address] [place] [address] Hematocrit (Bld) [Volume fraction] 38.9 % Normal 36.0-46.0 [facility] Comment on above: Performed By: #### 5 8410-2 ####IRVIN MUNGUIA ([id number])[facility] [place], [place] [id number] Hemoglobin (Bld) [Mass/Vol] 12.1 g/dL Normal 12.0-16.0 [facility] Comment on above: Performed By: #### 5 8410-2 ####IRVIN MUNGUIA ([id number])[facility] [place] [address] 43733 MCH (RBC) [Entitic mass] 27.3 pg Normal 26.0-34.0 [facility] Comment on above: Performed By: #### 5 8410-2 ####IRVIN MUNGUIA ([id number])[facility] [place] [address] 31329 MCHC (RBC) [Mass/Vol] 31.1 g/dL Low 32.0-36.0 [facility] Comment on above: Performed By: #### 5 8410-2 ####IRVIN MUNGUIA ([id number])[facility])[address] [place] [address] 26447 MCV (RBC) [Entitic vol] 88 fL Normal 80-100 [facility] Comment on above: Performed By: #### 5 8410-2 ####IRVIN MUNGUIA ([id number])[facility])[address] [place] [address] 07472 Nucleated RBC/100 WBC (Bld) [Ratio] 0.0 /100 WBCs Normal 0.0-0.0 [facility] Comment on above: Performed By: #### 5 8410-2 ####IRVIN MUNGUIA ([id number])[facility])[address] [place] [address] 90720 Platelets (Bld) [#/Vol] 310 x10*3/uL Normal 150-450 [facility] Comment on above: Performed By: #### 5 8410-2 ####IRVIN MUNGUIA ([id number])[facility])[address] [place] [address] 90985 RBC (Bld) [#/Vol] 4.43 x10*6/uL Normal 4.00-5.20 [facility] Comment on above: Performed By: #### 5 8410-2 ####IRVIN MUNGUIA ([id number])[facility])[address] [place] [address] 30198 WBC (Bld) [#/Vol] 12.2 x10*3/uL High 4.4-11.3 [facility] Comment on above: Performed By: #### 5 8410-2 ####IRVIN MUNGUIA ([id number])[facility])[address] [place] [address] 31129 Coagulation surface inducedo n 03-05-2024 aPTT Coag (PPP) [Time] 49 s High 27-38 [facility] Comment on above: Order Comment: The A PTT is no longer used for monitoring Unfractionated Heparin Therapy. For monitoring Heparin Therapy, use the Heparin Assay. Performed By: #### 1 4979-9 ####IRVIN MUNGUIA ([id number])[facility])[address] [place] [address] [id number] Coagulation tissue factor in ducedon 03-05-2024 PT Coag (PPP) [Time] 45.6 s High 9.8-12.8 [facility] Comment on above: Performed By: #### 5 902-2 ####BRYAN EZRA ([id number])[facility])[address] [place] [address] Comprehensive metabolic 2000 panelon 03-05-2024 Albumin BCP dye [Mass/Vol] 4.0 g/dL 3.4 - 5.0 g/dL [facility] ALP [Catalytic activity/Vol] 187 U/L High 33 - 110 U/L [facility] ALT With P-5'-P [Catalytic activity/Vol] 39 U/L 7 - 45 U/L [facility] Comment on above: Patients treated wit h Sulfasalazine may generate falsely decreased results for ALT. Anion gap [Moles/Vol] 16 mmol/L 10 - 2 0 mmol/L [facility] AST With P-5'-P [Catalytic activity/Vol] 41 U/L High 9 - 39 U/L [facility] Bilirubin [Mass/Vol] 0.2 mg/dL 0.0 - 1 .2 mg/dL [facility] Calcium [Mass/Vol] 8.8 mg/dL 8.6 - 10. 3 mg/dL [facility] Chloride [Moles/Vol] 99 mmol/L 98 - 10 7 mmol/L [facility] CO2 [Moles/Vol] 24 mmol/L 21 - 32 mmol/L [facility] Creatinine [Mass/Vol] 0.72 mg/dL 0.50 - 1.05 mg/dL [facility] eGFR - PINF [facility] Comment on above: Calculations of estuardo mated GFR are performed using the 2020 CKD-EPI Study Refit equation without the race variable for the IDMS-Traceable creatinine methods. https://jasn.asnjournals.org/content/early/ASN.429605 6638 Glucose [Mass/Vol] 215 mg/dL High 74 - 99 mg/dL [facility] Interpretation and review of laboratory results Abnormal [facility] Potassium [Moles/Vol] 4.3 mmol/L 3.5 - 5.3 mmol/L [facility] Protein [Mass/Vol] 7.8 g/dL 6.4 - 8.2 g/dL [facility] Sodium [Moles/Vol] 135 mmol/L Low 136 - 145 mmol/L [facility] Urea nitrogen [Mass/Vol] 12 mg/dL 6 - 23 mg/dL [facility] Albumin BCP dye [Mass/Vol] 4.0 g/dL Normal 3.4-5.0 [facility] Comment on above: Performed By: #### 2 4323-8 ####IRVIN MUNGUIA ([id number])[facility])[address] [place] [address] 16147 ALP [Catalytic activity/Vol] 187 U/L High 33-110 [facility] Comment on above: Performed By: #### 2 4323-8 ####IRVIN MUNGUIA ([id number])[facility] [place] [address] 56074 ALT With P-5'-P [Catalytic activity/Vol] 39 U/L Normal 7-45 [facility] Comment on above: Result Comment: Evelyn ents treated with Sulfasalazine may generate falsely decreased results for ALT. Performed By: #### 2 4323-8 ####IRVIN MUNGUIA ([id number])[facility])[address] [place] [address] 03363 Anion gap [Moles/Vol] 16 mmol/L Normal 10-20 [facility] Comment on above: Performed By: #### 2 4323-8 ####IRVIN MUNGUIA ([id number])[facility] [place] [address] 03171 AST With P-5'-P [Catalytic activity/Vol] 41 U/L High 9-39 [facility] Comment on above: Performed By: #### 2 4323-8 ####IRVIN MUNGUIA ([id number])[facility])[address] [place] [address] 82586 Bilirubin [Mass/Vol] 0.2 mg/dL Normal 0.0-1.2 [facility] Comment on above: Performed By: #### 2 4323-8 ####IRVIN MUNGUIA ([id number])[facility])[address] [place] [address] 50114 Calcium [Mass/Vol] 8.8 mg/dL Normal 8.6-10.3 [facility] Comment on above: Performed By: #### 2 4323-8 ####IRVIN MUNGUIA ([id number])[facility] [place] [address] 28218 Chloride [Moles/Vol] 99 mmol/L Normal 98-107 [facility] Comment on above: Performed By: #### 2 4323-8 ####IRVIN MUNGUIA ([id number])[facility] [place] [address] 23829 CO2 [Moles/Vol] 24 mmol/L Normal 21-32 [facility] Comment on above: Performed By: #### 2 4323-8 ####IRVIN MUNGUIA ([id number])[facility] [place] [address] 43010 Creatinine [Mass/Vol] 0.72 mg/dL Normal 0.50-1.05 [facility] Comment on above: Performed By: #### 2 4323-8 ####IRVIN MUNGUIA ([id number])[facility] [place] [address] 22652 GFR/1.73 sq M.predicted MDRD (S/P/Bld) [Vol rate/Area] mL/min/{1.73_m2} Normal >60 [facility] Comment on above: Result Comment: Calc ulations of estimated GFR are performed using the 2020 CKD-EPI Study Refit equation without the race variable for the IDMS-Traceable creatinine methods.https://jasn.asnjournals.org/content// N.4923154507 Performed By: #### 2 4323-8 ####IRVIN MUNGUIA ([id number])[facility] [place] [address] 34952 Glucose [Mass/Vol] 215 mg/dL High 74-99 [facility] Comment on above: Performed By: #### 2 4323-8 ####IRVIN MUNGUIA ([id number])[facility] [place] [address] 24126 Potassium [Moles/Vol] 4.3 mmol/L Normal 3.5-5.3 [facility] Comment on above: Performed By: #### 2 4323-8 ####IRVIN MUNGUIA ([id number])[facility] [place] [address] 56850 Protein [Mass/Vol] 7.8 g/dL Normal 6.4-8.2 [facility] Comment on above: Performed By: #### 2 4323-8 ####IRVIN MUNGUIA ([id number])[facility])[address] [place] [address] 44243 Sodium [Moles/Vol] 135 mmol/L Low 136-145 [facility] Comment on above: Performed By: #### 2 4323-8 ####IRVIN MUNGUIA ([id number])[facility] [place] [address] 57311 Urea nitrogen [Mass/Vol] 12 mg/dL Normal 6-23 [facility] Comment on above: Performed By: #### 2 4323-8 ####IRVIN MUNGUIA ([id number])[facility] [place] [address] 91875 ECG 12-LEADon 03-05-2024 ECG 12-LEAD Ventricular Rate 115 Atrial Rate 115 P-R Interval 136 QRS Duration 80 Q-T Interval 328 QTC Calculation(Bazett) 453 P [place] 42 R [place] 42 T [place] 48 QRS Count 19 Q Onset 222 P Onset 154 P Offset 207 T Offset 386 QTC Fredericia 407 Diagnosis Sinus tachycardia Otherwise normal ECG When compared with ECG of 28-FEB-2024 08:09, No significant change was found See ED provider note for full interpretation and clinical correlation Confirmed by Hermelinda Beltran ([id number]) on 03/08/2024 6:50:38 PM Normal [facility] Lipaseon 03-05-2024 Lipase [Catalytic activity/Vol] 23 U/L 9 - 82 U/L [facility] Lipase [Catalytic activity/V ol]on 03-05-2024 Interpretation and review of laboratory results Normal [facility] Venipuncture immediately after or during the administration of Metamizole may lead to falsely low results. Testing should be performed immediately prior to Metamizole dosing. [facility] No Panel Informationon 03-05 Interpretation and review of laboratory results Abnormal [facility] PT Coag (PPP) [Time]on 03-05 INR Coag (PPP) [Relative time] 3.9 {INR} High 0.9 - 1.1 [facility] INR Coag (PPP) [Relative time] 3.9 High 0.9-1.1 [facility] Comment on above: Performed By: #### 5 902-2 ####IRVIN MUNGUIA ([id number])[facility])[address] [place] [address] Protime-INRon 03-05-2024 PT Coag (PPP) [Time] 45.[address] [facility] Triacylglycerol lipaseon Lipase [Catalytic activity/Vol] 23 U/L Normal -82 [facility] Comment on above: Order Comment: Venip uncture immediately after or during the administration of Metamizole may lead to falsely low results. Testing should be performed immediately prior to Metamizole dosing. Performed By: #### 3 040-3 ####IRVIN MUNGUIA ([id number])[facility])[address] [place] [address] aPTT Coag (PPP) [Time]on The APTT is no longe r used for monitoring Unfractionated Heparin Therapy. For monitoring Heparin Therapy, use the Heparin Assay. [facility] Basic metabolic 2000 panelon 03-02-2024 Anion gap [Moles/Vol] 14 mmol/L 10 - 2 0 mmol/L [facility] Calcium [Mass/Vol] 8.8 mg/dL 8.6 - 10. 3 mg/dL [facility] Chloride [Moles/Vol] 101 mmol/L 98 - 10 7 mmol/L [facility] CO2 [Moles/Vol] 24 mmol/L 21 - 32 mmol/L [facility] Creatinine [Mass/Vol] 0.65 mg/dL 0.50 - 1.05 mg/dL [facility] eGFR - PINF [facility] Comment on above: Calculations of estuardo mated GFR are performed using the 2020 CKD-EPI Study Refit equation without the race variable for the IDMS-Traceable creatinine methods. https://jasn.asnjournals.org/content/early//ASN.945205 5888 Glucose [Mass/Vol] 158 mg/dL High 74 - 99 mg/dL [facility] Interpretation and review of laboratory results Abnormal [facility] Potassium [Moles/Vol] 3.8 mmol/L 3.5 - 5.3 mmol/L [facility] Sodium [Moles/Vol] 135 mmol/L Low 136 - 145 mmol/L [facility] Urea nitrogen [Mass/Vol] 9 mg/dL 6 - 23 mg/dL [facility] Anion gap [Moles/Vol] 14 mmol/L Normal 10-20 [facility] Comment on above: Performed By: #### 2 4321-2 ####IRVIN MUNGUIA ([id number])[facility])[address] [place] [address] 89188 Calcium [Mass/Vol] 8.8 mg/dL Normal 8.6-10.3 [facility] Comment on above: Performed By: #### 2 4321-2 ####IRVIN MUNGUIA ([id number])[facility])[address] [place] [address] 06376 Chloride [Moles/Vol] 101 mmol/L Normal 98-107 [facility] Comment on above: Performed By: #### 2 4321-2 ####IRVIN MUNGUIA ([id number])[facility] [place] [address] CO2 [Moles/Vol] 24 mmol/L Normal 21-32 [facility] Comment on above: Performed By: #### 2 4321-2 ####IRVIN MUNGUIA ([id number])[facility])[address] [place] [address] 48922 Creatinine [Mass/Vol] 0.65 mg/dL Normal 0.50-1.05 [facility] Comment on above: Performed By: #### 2 4321-2 ####IRVIN MUNGUIA ([id number])[facility])[address] [place] [address] 26490 GFR/1.73 sq M.predicted MDRD (S/P/Bld) [Vol rate/Area] mL/min/{1.73_m2} Normal >60 [facility] Comment on above: Result Comment: Calc ulations of estimated GFR are performed using the 2020 CKD-EPI Study Refit equation without the race variable for the IDMS-Traceable creatinine methods.https://jasn.asnjournals.org/content// N.4810689979 Performed By: #### 2 4321-2 ####IRVIN MUNGUIA ([id number])[facility])[address] [place] [address] 26609 Glucose [Mass/Vol] 158 mg/dL High 74-99 [facility] Comment on above: Performed By: #### 2 1-2 ####IRVIN MUNGUIA ([id number])[facility])[address] [place] [address] 62613 Potassium [Moles/Vol] 3.8 mmol/L Normal 3.5-5.3 [facility] Comment on above: Performed By: #### 2 4321-2 ####IRVIN MUNGUIA ([id number])[facility])[address] [place] [address] 72375 Sodium [Moles/Vol] 135 mmol/L Low 136-145 [facility] Comment on above: Performed By: #### 2 4321-2 ####IRVIN MUNGUIA ([id number])[facility])[address] [place] [address] Urea nitrogen [Mass/Vol] 9 mg/dL Normal 6-23 [facility] Comment on above: Performed By: #### 2 4321-2 ####IRVIN MUNGUIA ([id number])[facility])[address] [place] [address] CBC panel Auto (Bld)on 03-02 Erythrocyte distribution width (RBC) [Ratio] 14.0 % 11.5 - 14.5 % [facility] Hematocrit (Bld) [Volume fraction] 34.3 % Low 36.0 - 46.0 % [facility] Hemoglobin (Bld) [Mass/Vol] 10.6 g/dL Low 12.0 - 16.0 g/dL [facility] Interpretation and review of laboratory results Abnormal [facility] MCH (RBC) [Entitic mass] 27.5 pg 26.0 - 34.0 pg [facility] MCHC (RBC) [Mass/Vol] 30.9 g/dL Low 32.0 - 36.0 g/dL [facility] MCV (RBC) [Entitic vol] 89 fL 80 - 100 fL [facility] Nucleated RBC/100 WBC (Bld) [Ratio] 0.0 % [facility] Platelets (Bld) [#/Vol] 290 10*3/uL [facility] RBC (Bld) [#/Vol] 3.86 10*6/uL Low [facility] WBC (Bld) [#/Vol] 7.6 10*3/uL [facility] Erythrocyte distribution width (RBC) [Ratio] 14.0 % Normal 11.5-14.5 [facility] Comment on above: Performed By: #### 5 8410-2 ####IRVIN MUNGUIA ([id number])[facility])[address] [place] [address] Hematocrit (Bld) [Volume fraction] 34.3 % Low 36.0-46.0 [facility] Comment on above: Performed By: #### 5 8410-2 ####IRVIN MUNGUIA ([id number])[facility])[address] [place] [address] 83009 Hemoglobin (Bld) [Mass/Vol] 10.6 g/dL Low 12.0-16.0 [facility] Comment on above: Performed By: #### 5 8410-2 ####IRVIN MUNGUIA ([id number])[facility])[address] [place] [address] 59159 MCH (RBC) [Entitic mass] 27.5 pg Normal 26.0-34.0 [facility] Comment on above: Performed By: #### 5 8410-2 ####IRVIN MUNGUIA ([id number])[facility])[address] [place] [address] 98549 MCHC (RBC) [Mass/Vol] 30.9 g/dL Low 32.0-36.0 [facility] Comment on above: Performed By: #### 5 8410-2 ####IRVIN MUNGUIA ([id number])[facility])[address] [place] [address] 64826 MCV (RBC) [Entitic vol] 89 fL Normal 80-100 [facility] Comment on above: Performed By: #### 5 8410-2 ####IRVIN MUNGUIA ([id number])[facility])[address] [place] [address] 57852 Nucleated RBC/100 WBC (Bld) [Ratio] 0.0 /100 WBCs Normal 0.0-0.0 [facility] Comment on above: Performed By: #### 5 8410-2 ####IRVIN MUNGUIA ([id number])[facility])[address] [place] [address] 02495 Platelets (Bld) [#/Vol] 290 x10*3/uL Normal 150-450 [facility] Comment on above: Performed By: #### 5 8410-2 ####IRVIN MUNGUIA ([id number])[facility])[address] [place] [address] RBC (Bld) [#/Vol] 3.86 x10*6/uL Low 4.00-5.20 [facility] Comment on above: Performed By: #### 5 8410-2 ####IRVIN MUNGUIA ([id number])[facility])[address] [place] [address] WBC (Bld) [#/Vol] 7.6 x10*3/uL Normal 4.4-11.3 [facility] Comment on above: Performed By: #### 5 8410-2 ####IRVIN MUNGUIA ([id number])[facility])[address] [place] [address] Coagulation tissue factor in ducedon 03-02-2024 PT Coag (PPP) [Time] 37.3 s High 9.8-12.8 [facility] Comment on above: Performed By: #### 5 902-2 ####IRVIN MUNGUIA ([id number])[facility])[address] [place], [place] [id number] Glucose Test strip manual (B ld) [Mass/Vol]on 03-02-2024 Glucose [Mass/Vol] 204 mg/dL High 74 - 99 mg/dL [facility] Interpretation and review of laboratory results Abnormal [facility] Glucose [Mass/Vol] 204 mg/dL High 74-99 [facility] Comment on above: Performed By: #### 2 341-6 ####IRVIN MUNGUIA ([id number])[facility])[address] [place], [place] [phone] Glucose [Mass/Vol] 169 mg/dL High 74 - 99 mg/dL [facility] Interpretation and review of laboratory results Abnormal [facility] Glucose [Mass/Vol] 169 mg/dL High 74-99 [facility] Comment on above: Performed By: #### 2 341-6 ####IRVIN EZRA ([id number])[facility])[address] [place] [address] Glucose [Mass/Vol] 162 mg/dL High 74 - 99 mg/dL [facility] Interpretation and review of laboratory results Abnormal [facility] Glucose [Mass/Vol] 162 mg/dL High 74-99 [facility] Comment on above: Performed By: #### 2 341-6 ####IRVIN MUNGUIA ([id number])[facility] [place] [address] Heparin Assayon 03-02-2024 Heparin unfractionated Chromogenic method Qn (PPP) 0.4 See Comment Below for Therapeutic Ranges IU/mL [facility] Heparin unfractionated Chrom ogenic method Qn (PPP)on 03-02-2024 Interpretation and review of laboratory results Normal [facility] The therapeutic reference range for UFH may be either 0.3-0.6 IU/mL or 0.3-0.7 IU/mL based on the clinical setting for anticoagulant therapy and the associated nomogram used. For Heparin dosing guidelines based on clinical scenario and Heparin Assay results, please refer to local Pharmacy and the [facility] Guidelines for Anticoagulation Therapy available on the [facility] intranet at: [email or web address] [email or web address] [email or web address] [email or web address]/P [email or web address]_[facility] ls_Guidelines_for_Antic oagu.aspx [facility] Heparin.unfractionatedon Heparin unfractionated Chromogenic method Qn (PPP) 0.4 IU/mL Normal See Comment Below for Therapeutic Ranges [facility] Comment on above: Order Comment: The t herapeutic reference range for UFH may be either 0.3-0.6 IU/mL or 0.3-0.7 IU/mL based on the clinical setting for anticoagulant therapy and the associated nomogram used. For Heparin dosing guidelines based on clinical scenario and Heparin Assay results, please refer to local Pharmacy and the [facility] Guidelines for Anticoagulation Therapy available on the [facility] intranet at: [email or web address] medical [email or web address]/[email or web address]_[facility]_Guidelines_for_Anticoagu.aspx Performed By: #### 3 274-8 ####IRVIN MUNGUIA ([id number])[facility])[address] [place] [address] 15061 No Panel Informationon 03-02 [facility] PT Coag (PPP) [Time]on 03-02 INR Coag (PPP) [Relative time] 3.2 {INR} High 0.9 - 1.1 [facility] Interpretation and review of laboratory results Abnormal [facility] INR Coag (PPP) [Relative time] 3.2 High 0.9-1.1 [facility] Comment on above: Performed By: #### 5 902-2 ####IRVIN MUNGUIA ([id number])[facility])[address] [place] [address] 20992 Protime-INRon 03-02-2024 PT Coag (PPP) [Time] 37.[address] [facility] XR Abdomen Single viewon Nonobstructive bowel gas pattern. MACRO: None Signed by: Ulises Dowd 03/02/2024 11:33 AM Dictation workstation: [id number] MOHINI LIANGODAL Interpreted By: Ulises Dowd, STUDY: XR ABDOMEN 1 VIEW; 03/01/2024 10:43 pm INDICATION: Signs/Symptoms:pain. COMPARISON: 01/28/2024 ACCESSION NUMBER(S): [id number] ORDERING CLINICIAN: CHACHO RIBEIRO FINDINGS: 2 supine AP radiographs of the abdomen were obtained. There is a nonobstructive bowel gas pattern present. Free intraperitoneal air and air-fluid levels cannot be excluded without upright or decubitus images. MMODAL Ulises Dowd MD - 03/02/2024 Interpreted By: Ulises Dowd, STUDY: XR ABDOMEN 1 VIEW; 03/01/2024 10:43 pm INDICATION: Signs/Symptoms:pain. COMPARISON: 01/28/2024 ACCESSION NUMBER(S): [id number] ORDERING CLINICIAN: CHACHO GEMA FINDINGS: 2 supine AP radiographs of the abdomen were obtained. There is a nonobstructive bowel gas pattern present. Free intraperitoneal air and air-fluid levels cannot be excluded without upright or decubitus images. IMPRESSION: Nonobstructive bowel gas pattern. MACRO: None Signed by: Ulises Dowd 03/02/2024 11:33 AM Dictation workstation: [id number] [facility] Work Phone: XR Abdomen Single viewOrdere d By: Ulises Dowd on 03-02-2024 [facility] Work Phone: Basic metabolic 2000 panelon 03-01-2024 Anion gap [Moles/Vol] 14 mmol/L 10 - 2 0 mmol/L [facility] Calcium [Mass/Vol] 9.0 mg/dL 8.6 - 10. 3 mg/dL [facility] Chloride [Moles/Vol] 100 mmol/L 98 - 10 7 mmol/L [facility] CO2 [Moles/Vol] 25 mmol/L 21 - 32 mmol/L [facility] Creatinine [Mass/Vol] 0.64 mg/dL 0.50 - 1.05 mg/dL [facility] eGFR - PINF [facility] Comment on above: Calculations of estuardo mated GFR are performed using the 2020 CKD-EPI Study Refit equation without the race variable for the IDMS-Traceable creatinine methods. https://jasn.asnjournals.org/content//ASN.503547 0468 Glucose [Mass/Vol] 136 mg/dL High 74 - 99 mg/dL [facility] Interpretation and review of laboratory results Abnormal [facility] Potassium [Moles/Vol] 3.8 mmol/L 3.5 - 5.3 mmol/L [facility] Comment on above: MILD HEMOLYSIS DETEC DEYANIRA. The result may be falsely elevated due to hemolysis or other interferents. Clinical correlation is recommended. Repeat testing may be considered. Sodium [Moles/Vol] 135 mmol/L Low 136 - 145 mmol/L [facility] Urea nitrogen [Mass/Vol] 8 mg/dL 6 - 23 mg/dL [facility] Anion gap [Moles/Vol] 14 mmol/L Normal 10-20 [facility] Comment on above: Performed By: #### 2 4321-2 ####IRVIN MUNGUIA ([id number])[facility] [place] [address] 54328 Calcium [Mass/Vol] 9.0 mg/dL Normal 8.6-10.3 [facility] Comment on above: Performed By: #### 2 4321-2 ####IRVIN MUNGUIA ([id number])[facility] [place] [address] 58735 Chloride [Moles/Vol] 100 mmol/L Normal 98-107 [facility] Comment on above: Performed By: #### 2 4321-2 ####IRVIN MUNGUIA ([id number])[facility] [place] [address] 94395 CO2 [Moles/Vol] 25 mmol/L Normal 21-32 [facility] Comment on above: Performed By: #### 2 4321-2 ####IRVIN MUNGUIA ([id number])[facility] [place] [address] 43045 Creatinine [Mass/Vol] 0.64 mg/dL Normal 0.50-1.05 [facility] Comment on above: Performed By: #### 2 4321-2 ####IRVIN MUNGUIA ([id number])[facility] [place] [address] 02069 GFR/1.73 sq M.predicted MDRD (S/P/Bld) [Vol rate/Area] mL/min/{1.73_m2} Normal >60 [facility] Comment on above: Result Comment: Calc ulations of estimated GFR are performed using the 2020 CKD-EPI Study Refit equation without the race variable for the IDMS-Traceable creatinine methods.https://jasn.asnjournals.org/content/early/ N.9993955052 Performed By: #### 2 4321-2 ####IRVIN MUNGUIA ([id number])[facility] [place] [address] 78545 Glucose [Mass/Vol] 136 mg/dL High 74-99 [facility] Comment on above: Performed By: #### 2 4321-2 ####IRVIN MUNGUIA ([id number])[facility] [place] [id number] Potassium [Moles/Vol] 3.8 mmol/L Normal 3.5-5.3 [facility] Comment on above: Result Comment: MILD HEMOLYSIS DETECTED. The result may be falsely elevated due to hemolysis or other interferents. Clinical correlation is recommended. Repeat testing may be considered. Performed By: #### 2 4321-2 ####IRVIN MUNGUIA ([id number])[facility])[address] [place] [address] [id number] Sodium [Moles/Vol] 135 mmol/L Low 136-145 [facility] Comment on above: Performed By: #### 2 4321-2 ####IRVIN MUNGUIA ([id number])[facility] [place] [place] [address] 33491 Urea nitrogen [Mass/Vol] 8 mg/dL Normal 6-23 [facility] Comment on above: Performed By: #### 2 4321-2 ####IRVIN MUNGUIA ([id number])[facility])[address] [place] [address] 87008 CBC panel Auto (Bld)on 03-01 Erythrocyte distribution width (RBC) [Ratio] 14.0 % 11.5 - 14.5 % [facility] Hematocrit (Bld) [Volume fraction] 35.6 % Low 36.0 - 46.0 % [facility] Hemoglobin (Bld) [Mass/Vol] 10.8 g/dL Low 12.0 - 16.0 g/dL [facility] Interpretation and review of laboratory results Abnormal [facility] MCH (RBC) [Entitic mass] 26.9 pg 26.0 - 34.0 pg [facility] MCHC (RBC) [Mass/Vol] 30.3 g/dL Low 32.0 - 36.0 g/dL [facility] MCV (RBC) [Entitic vol] 89 fL 80 - 100 fL [facility] Nucleated RBC/100 WBC (Bld) [Ratio] 0.0 % [facility] Platelets (Bld) [#/Vol] 339 10*3/uL [facility] RBC (Bld) [#/Vol] 4.01 10*6/uL [facility] WBC (Bld) [#/Vol] 5.6 10*3/uL [facility] Erythrocyte distribution width (RBC) [Ratio] 14.0 % Normal 11.5-14.5 [facility] Comment on above: Performed By: #### 5 8410-2 ####IRVIN MUNGUIA ([id number])[facility])[address] [place] [address] 85674 Hematocrit (Bld) [Volume fraction] 35.6 % Low 36.0-46.0 [facility] Comment on above: Performed By: #### 5 8410-2 ####IRVIN MUNGUIA ([id number])[facility])[address] [place] [address] 06377 Hemoglobin (Bld) [Mass/Vol] 10.8 g/dL Low 12.0-16.0 [facility] Comment on above: Performed By: #### 5 8410-2 ####IRVIN MUNGUIA ([id number])[facility])[address] [place] [address] 98805 MCH (RBC) [Entitic mass] 26.9 pg Normal 26.0-34.0 [facility] Comment on above: Performed By: #### 5 8410-2 ####IRVIN MUNGUIA ([id number])[facility])[address] [place] [address] 02656 MCHC (RBC) [Mass/Vol] 30.3 g/dL Low 32.0-36.0 [facility] Comment on above: Performed By: #### 5 8410-2 ####IRVIN MUNGUIA ([id number])[facility])[address] [place] [address] 04701 MCV (RBC) [Entitic vol] 89 fL Normal 80-100 [facility] Comment on above: Performed By: #### 5 8410-2 ####IRVIN MUNGUIA ([id number])[facility])[address] [place] [address] 28262 Nucleated RBC/100 WBC (Bld) [Ratio] 0.0 /100 WBCs Normal 0.0-0.0 [facility] Comment on above: Performed By: #### 5 8410-2 ####IRVIN MUNGUIA ([id number])[facility])[address] [place] [address] 09819 Platelets (Bld) [#/Vol] 339 x10*3/uL Normal 150-450 [facility] Comment on above: Performed By: #### 5 8410-2 ####IRVIN MUNGUIA ([id number])[facility] [place] [address] 46392 RBC (Bld) [#/Vol] 4.01 x10*6/uL Normal 4.00-5.20 [facility] Comment on above: Performed By: #### 5 8410-2 ####IRVIN MUNGUIA ([id number])[facility] [place] [address] 92654 WBC (Bld) [#/Vol] 5.6 x10*3/uL Normal 4.4-11.3 [facility] Comment on above: Performed By: #### 5 8410-2 ####IRVIN MUNGUIA ([id number])[facility])[address] [place] [address] 15248 Erythrocyte distribution width (RBC) [Ratio] 14.2 % 11.5 - 14.5 % [facility] Hematocrit (Bld) [Volume fraction] 34.9 % Low 36.0 - 46.0 % [facility] Hemoglobin (Bld) [Mass/Vol] 10.7 g/dL Low 12.0 - 16.0 g/dL [facility] Interpretation and review of laboratory results Abnormal [facility] MCH (RBC) [Entitic mass] 27.6 pg 26.0 - 34.0 pg [facility] MCHC (RBC) [Mass/Vol] 30.7 g/dL Low 32.0 - 36.0 g/dL [facility] MCV (RBC) [Entitic vol] 90 fL 80 - 100 fL [facility] Nucleated RBC/100 WBC (Bld) [Ratio] 0.0 % [facility] Platelets (Bld) [#/Vol] 321 10*3/uL [facility] RBC (Bld) [#/Vol] 3.87 10*6/uL Low [facility] WBC (Bld) [#/Vol] 6.0 10*3/uL [facility] Erythrocyte distribution width (RBC) [Ratio] 14.2 % Normal 11.5-14.5 [facility] Comment on above: Performed By: #### 5 8410-2 ####IRVIN MUNGUIA ([id number])[facility])[address] [place] [address] 74542 Hematocrit (Bld) [Volume fraction] 34.9 % Low 36.0-46.0 [facility] Comment on above: Performed By: #### 5 8410-2 ####IRIVN MUNGUIA ([id number])[facility])[address] [place] [address] 95213 Hemoglobin (Bld) [Mass/Vol] 10.7 g/dL Low 12.0-16.0 [facility] Comment on above: Performed By: #### 5 8410-2 ####IRVIN MUNGUIA ([id number])[facility])[address] [place] [address] 97563 MCH (RBC) [Entitic mass] 27.6 pg Normal 26.0-34.0 [facility] Comment on above: Performed By: #### 5 8410-2 ####IRVIN MUNGUIA ([id number])[facility])[address] [place] [address] 51930 MCHC (RBC) [Mass/Vol] 30.7 g/dL Low 32.0-36.0 [facility] Comment on above: Performed By: #### 5 8410-2 ####IRVIN MUNGUIA ([id number])[facility])[address] [place] [address] 99853 MCV (RBC) [Entitic vol] 90 fL Normal 80-100 [facility] Comment on above: Performed By: #### 5 8410-2 ####IRVIN MUNGUIA ([id number])[facility])[address] [place], [place] [id number] Nucleated RBC/100 WBC (Bld) [Ratio] 0.0 /100 WBCs Normal 0.0-0.0 [facility] Comment on above: Performed By: #### 5 8410-2 ####IRVIN MUNGUIA ([id number])[facility])[address] [place] [address] 92692 Platelets (Bld) [#/Vol] 321 x10*3/uL Normal 150-450 [facility] Comment on above: Performed By: #### 5 8410-2 ####IRVIN MUNGUIA ([id number])[facility])[address] [place] [address] 58479 RBC (Bld) [#/Vol] 3.87 x10*6/uL Low 4.00-5.20 [facility] Comment on above: Performed By: #### 5 8410-2 ####IRVIN MUNGUIA ([id number])[facility])[address] [place] [address] 70087 WBC (Bld) [#/Vol] 6.0 x10*3/uL Normal 4.4-11.3 [facility] Comment on above: Performed By: #### 5 8410-2 ####IRVIN MUNGUIA ([id number])[facility])[address] [place] [address] 02595 Coagulation tissue factor in ducedon 03-01-2024 PT Coag (PPP) [Time] 14.9 s High 9.8-12.8 [facility] Comment on above: Performed By: #### 5 902-2 ####IRVIN MUNGUIA ([id number])[facility])[address] [place] [address] 89792 Glucose Test strip manual (B ld) [Mass/Vol]on 03-01-2024 Glucose [Mass/Vol] 185 mg/dL High 74 - 99 mg/dL [facility] Interpretation and review of laboratory results Abnormal [facility] Glucose [Mass/Vol] 185 mg/dL High 74-99 [facility] Comment on above: Performed By: #### 2 341-6 ####IRVIN MUNGUIA ([id number])[facility])[address] [place] [address] 81523 Glucose [Mass/Vol] 179 mg/dL High 74 - 99 mg/dL [facility] Interpretation and review of laboratory results Abnormal [facility] Glucose [Mass/Vol] 179 mg/dL High 74-99 [facility] Comment on above: Performed By: #### 2 341-6 ####IRVIN MUNGUIA ([id number])[facility])[address] [place] [address] 82740 Glucose [Mass/Vol] 169 mg/dL High 74 - 99 mg/dL [facility] Interpretation and review of laboratory results Abnormal [facility] Glucose [Mass/Vol] 169 mg/dL High 74-99 [facility] Comment on above: Performed By: #### 2 341-6 ####IRVIN MUNGUIA ([id number])[facility])[address] [place] [address] 30066 Glucose [Mass/Vol] 134 mg/dL High 74 - 99 mg/dL [facility] Interpretation and review of laboratory results Abnormal [facility] Glucose [Mass/Vol] 134 mg/dL High 74-99 [facility] Comment on above: Performed By: #### 2 341-6 ####BRYAN EZRA ([id number])[facility])[address] [place] [address] Heparin Assayon 03-01-2024 Heparin unfractionated Chromogenic method Qn (PPP) 0.3 See Comment Below for Therapeutic Ranges IU/mL [facility] Heparin unfractionated Chromogenic method Qn (PPP) 0.4 See Comment Below for Therapeutic Ranges IU/mL [facility] Heparin unfractionated Chrom ogenic method Qn (PPP)on 03-01-2024 Interpretation and review of laboratory results Normal [facility] The therapeutic reference range for UFH may be either 0.3-0.6 IU/mL or 0.3-0.7 IU/mL based on the clinical setting for anticoagulant therapy and the associated nomogram used. For Heparin dosing guidelines based on clinical scenario and Heparin Assay results, please refer to local Pharmacy and [facility] Guidelines for Anticoagulation Therapy available on the [facility] intranet at: [email or web address]://[employer].[facility] osInterrad [email or web address]/Pharmacy/P [email or web address]_[facility] ls_Guidelines_for_Antic oagu.aspx [facility] Interpretation and review of laboratory results Normal [facility] The therapeutic reference range for UFH may be either 0.3-0.6 IU/mL or 0.3-0.7 IU/mL based on the clinical setting for anticoagulant therapy and the associated nomogram used. For Heparin dosing guidelines based on clinical scenario and Heparin Assay results, please refer to local Pharmacy and the [facility] Guidelines for Anticoagulation Therapy available on the [facility] intranet at: [email or web address]://[employer].[facility] osInterrad [email or web address]/Pharmacy/P [email or web address]/[place]_[facility] ls_Guidelines_for_Antic oagu.aspx [facility] Heparin.unfractionatedon Heparin unfractionated Chromogenic method Qn (PPP) 0.3 IU/mL Normal See Comment Below for Therapeutic Ranges [facility] Comment on above: Order Comment: The t herapeutic reference range for UFH may be either 0.3-0.6 IU/mL or 0.3-0.7 IU/mL based on the clinical setting for anticoagulant therapy and the associated nomogram used. For Heparin dosing guidelines based on clinical scenario and Heparin Assay results, please refer to local Pharmacy and the [facility] Guidelines for Anticoagulation Therapy available on the [facility] intranet at: [email or web address]/[email or web address]_ spitals_Guidelines_for_Anticoagu.aspx Performed By: #### 3 274-8 ####IRVIN MUNGUIA ([id number])[facility])[address] [place] [address] Heparin unfractionated Chromogenic method Qn (PPP) 0.4 IU/mL Normal See Comment Below for Therapeutic Ranges [facility] Comment on above: Order Comment: The t herapeutic reference range for UFH may be either 0.3-0.6 IU/mL or 0.3-0.7 IU/mL based on the clinical setting for anticoagulant therapy and the associated nomogram used. For Heparin dosing guidelines based on clinical scenario and Heparin Assay results, please refer to local Pharmacy and the [facility] Guidelines for Anticoagulation Therapy available on the [facility] intranet at: [email or web address]/[email or web address]_ spitals_Guidelines_for_Anticoagu.aspx Performed By: #### 3 274-8 ####IRVIN MUNGUIA ([id number])[facility])[address] [place] [address] No Panel Informationon 03-01 [facility] PT Coag (PPP) [Time]on 03-01 INR Coag (PPP) [Relative time] 1.3 {INR} High 0.9 - 1.1 [facility] Interpretation and review of laboratory results Abnormal [facility] INR Coag (PPP) [Relative time] 1.3 High 0.9-1.1 [facility] Comment on above: Performed By: #### 5 902-2 ####IRVIN MUNGUIA ([id number])[facility])[address] [place] [address] Protime-INRon 03-01-2024 PT Coag (PPP) [Time] 14.[address] [facility] XR ABDOMEN 1 VIEWon 03-01-20 XR ABDOMEN 1 VIEW Normal [facility] XR Abdomen Single viewon Radiology Study observation (narrative) [facility] Work Phone: Amylaseon 02-29-2024 Amylase [Catalytic activity/Vol] 25 U/L Low 29 - 103 U/L [facility] Amylase [Catalytic activity/Vol] 25 U/L Low 29-103 [facility] Comment on above: Performed By: #### 1 798-8 ####BRYAN EZRA ([id number])[facility] [place] [address] Amylase [Catalytic activity/ Vol]on 02-29-2024 Interpretation and review of laboratory results Abnormal [facility] Basic metabolic 2000 panelon 02-29-2024 Anion gap [Moles/Vol] 13 mmol/L 10 - 2 0 mmol/L [facility] Calcium [Mass/Vol] 8.3 mg/dL Low 8.6 - 10. 3 mg/dL [facility] Chloride [Moles/Vol] 102 mmol/L 98 - 10 7 mmol/L [facility] CO2 [Moles/Vol] 24 mmol/L 21 - 32 mmol/L [facility] Creatinine [Mass/Vol] 0.64 mg/dL 0.50 - 1.05 mg/dL [facility] eGFR - PINF [facility] Comment on above: Calculations of estuardo mated GFR are performed using the 2020 CKD-EPI Study Refit equation without the race variable for the IDMS-Traceable creatinine methods. https://jasn.asnjournals.org/content///ASN.986473 9383 Glucose [Mass/Vol] 144 mg/dL High 74 - 99 mg/dL [facility] Interpretation and review of laboratory results Abnormal [facility] Potassium [Moles/Vol] 3.9 mmol/L 3.5 - 5.3 mmol/L [facility] Sodium [Moles/Vol] 135 mmol/L Low 136 - 145 mmol/L [facility] Urea nitrogen [Mass/Vol] 9 mg/dL 6 - 23 mg/dL [facility] Anion gap [Moles/Vol] 13 mmol/L Normal 10-20 [facility] Comment on above: Performed By: #### 2 4321-2 ####IRVIN MUNGUIA ([id number])[facility])[address] [place] [address] 23464 Calcium [Mass/Vol] 8.3 mg/dL Low 8.6-10.3 [facility] Comment on above: Performed By: #### 2 4321-2 ####IRVIN MUNGUIA ([id number])[facility])[address] [place] [address] 61173 Chloride [Moles/Vol] 102 mmol/L Normal 98-107 [facility] Comment on above: Performed By: #### 2 4321-2 ####IRVIN MUNGUIA ([id number])[facility])[address] [place] [address] 77323 CO2 [Moles/Vol] 24 mmol/L Normal 21-32 [facility] Comment on above: Performed By: #### 2 4321-2 ####IRVIN MUNGUIA ([id number])[facility] [place] [address] 80813 Creatinine [Mass/Vol] 0.64 mg/dL Normal 0.50-1.05 [facility] Comment on above: Performed By: #### 2 4321-2 ####IRVIN MUNGUIA ([id number])[facility])[address] [place] [address] 94097 GFR/1.73 sq M.predicted MDRD (S/P/Bld) [Vol rate/Area] mL/min/{1.73_m2} Normal >60 [facility] Comment on above: Result Comment: Calc ulations of estimated GFR are performed using the 2020 CKD-EPI Study Refit equation without the race variable for the IDMS-Traceable creatinine methods.https://jasn.asnjournals.org/content/early/ N.2679551809 Performed By: #### 2 4321-2 ####IRVIN MUNGUIA ([id number])[facility])[address] [place] [address] 78786 Glucose [Mass/Vol] 144 mg/dL High 74-99 [facility] Comment on above: Performed By: #### 2 4321-2 ####IRVIN MUNGUIA ([id number])[facility] [place] [address] 16427 Potassium [Moles/Vol] 3.9 mmol/L Normal 3.5-5.3 [facility] Comment on above: Performed By: #### 2 4321-2 ####IRVIN MUNGUIA ([id number])[facility])[address] [place] [address] 15089 Sodium [Moles/Vol] 135 mmol/L Low 136-145 [facility] Comment on above: Performed By: #### 2 4321-2 ####IRVIN MUNGUIA ([id number])[facility])[address] [place] [address] 83449 Urea nitrogen [Mass/Vol] 9 mg/dL Normal 6-23 [facility] Comment on above: Performed By: #### 2 4321-2 ####IRVIN MUNGUIA ([id number])[facility])[address] [place] [address] 68765 CBC panel Auto (Bld)on 02-28 Erythrocyte distribution width (RBC) [Ratio] 14.3 % 11.5 - 14.5 % [facility] Hematocrit (Bld) [Volume fraction] 34.4 % Low 36.0 - 46.0 % [facility] Hemoglobin (Bld) [Mass/Vol] 10.5 g/dL Low 12.0 - 16.0 g/dL [facility] Interpretation and review of laboratory results Abnormal [facility] MCH (RBC) [Entitic mass] 27.5 pg 26.0 - 34.0 pg [facility] MCHC (RBC) [Mass/Vol] 30.5 g/dL Low 32.0 - 36.0 g/dL [facility] MCV (RBC) [Entitic vol] 90 fL 80 - 100 fL [facility] Nucleated RBC/100 WBC (Bld) [Ratio] 0.0 % [facility] Platelets (Bld) [#/Vol] 322 10*3/uL [facility] RBC (Bld) [#/Vol] 3.82 10*6/uL Low [facility] WBC (Bld) [#/Vol] 5.7 10*3/uL [facility] Erythrocyte distribution width (RBC) [Ratio] 14.3 % Normal 11.5-14.5 [facility] Comment on above: Performed By: #### 5 8410-2 ####IRVIN MUNGUIA ([id number])[facility])[address] [place] [address] 64012 Hematocrit (Bld) [Volume fraction] 34.4 % Low 36.0-46.0 [facility] Comment on above: Performed By: #### 5 8410-2 ####IRVIN MUNGUIA ([id number])[facility] [place] [address] 03264 Hemoglobin (Bld) [Mass/Vol] 10.5 g/dL Low 12.0-16.0 [facility] Comment on above: Performed By: #### 5 8410-2 ####IRVIN MUNGUIA ([id number])[facility] [place] [address] 67806 MCH (RBC) [Entitic mass] 27.5 pg Normal 26.0-34.0 [facility] Comment on above: Performed By: #### 5 8410-2 ####IRVIN MUNGUIA ([id number])[facility])[address] [place] [address] 16975 MCHC (RBC) [Mass/Vol] 30.5 g/dL Low 32.0-36.0 [facility] Comment on above: Performed By: #### 5 8410-2 ####IRVIN MUNGUIA ([id number])[facility] [place] [address] 35575 MCV (RBC) [Entitic vol] 90 fL Normal 80-100 [facility] Comment on above: Performed By: #### 5 8410-2 ####IRVIN MUNGUIA ([id number])[facility] [place] [address] 20038 Nucleated RBC/100 WBC (Bld) [Ratio] 0.0 /100 WBCs Normal 0.0-0.0 [facility] Comment on above: Performed By: #### 5 8410-2 ####IRVIN MUNGUIA ([id number])[facility] [place] [address] 81578 Platelets (Bld) [#/Vol] 322 x10*3/uL Normal 150-450 [facility] Comment on above: Performed By: #### 5 8410-2 ####IRVIN MUNGUIA ([id number])[facility] [place] [address] 85629 RBC (Bld) [#/Vol] 3.82 x10*6/uL Low 4.00-5.20 [facility] Comment on above: Performed By: #### 5 8410-2 ####IRVIN MUNGUIA ([id number])[facility] [place] [address] 95710 WBC (Bld) [#/Vol] 5.7 x10*3/uL Normal 4.4-11.3 [facility] Comment on above: Performed By: #### 5 8410-2 ####IRVIN MUNGUIA ([id number])[facility] [place] [address] 10727 Glucose Test strip manual (B ld) [Mass/Vol]on 02-29-2024 Glucose [Mass/Vol] 142 mg/dL High 74 - 99 mg/dL [facility] Interpretation and review of laboratory results Abnormal [facility] Glucose [Mass/Vol] 142 mg/dL High 74-99 [facility] Comment on above: Performed By: #### 2 341-6 ####IRVIN MUNGUIA ([id number])[facility] [place] [address] 96144 Glucose [Mass/Vol] 149 mg/dL High 74 - 99 mg/dL [facility] Interpretation and review of laboratory results Abnormal [facility] Glucose [Mass/Vol] 149 mg/dL High 74-99 [facility] Comment on above: Performed By: #### 2 341-6 ####IRVIN MUNGUIA ([id number])[facility] [place] [address] 65885 Glucose [Mass/Vol] 155 mg/dL High 74 - 99 mg/dL [facility] Comment on above: RN/ NOTIFIED Interpretation and review of laboratory results Abnormal [facility] Glucose [Mass/Vol] 155 mg/dL High 74-99 [facility] Comment on above: Result Comment: RN/Abdoulaye Dillon NOTIFIED Performed By: #### 2 341-6 ####IRVIN MUNGUIA ([id number])[facility] [place] [address] 28875 Glucose [Mass/Vol] 152 mg/dL High 74 - 99 mg/dL [facility] Comment on above: RN/ NOTIFIED Interpretation and review of laboratory results Abnormal [facility] Glucose [Mass/Vol] 152 mg/dL High 74-99 [facility] Comment on above: Result Comment: KAY/Abdoulaye Dillon NOTIFIED Performed By: #### 2 341-6 ####IRVIN MUNGUIA ([id number])[facility] [place] [address] 59804 Heparin Assayon 02-29-2024 Heparin unfractionated Chromogenic method Qn (PPP) 0.2 See Comment Below for Therapeutic Ranges IU/mL [facility] Heparin unfractionated Chromogenic method Qn (PPP) 0.1 See Comment Below for Therapeutic Ranges IU/mL [facility] Heparin unfractionated Chromogenic method Qn (PPP) 0.1 See Comment Below for Therapeutic Ranges IU/mL [facility] Heparin Assay, UFHon 024 Heparin unfractionated Chromogenic method Qn (PPP) 0.1 See Comment Below for Therapeutic Ranges IU/mL [facility] Heparin unfractionated Chrom ogenic method Qn (PPP)on 02-29-2024 Interpretation and review of laboratory results Normal [facility] The therapeutic reference range for UFH may be either 0.3-0.6 IU/mL or 0.3-0.7 IU/mL based on the clinical setting for anticoagulant therapy and the associated nomogram used. For Heparin dosing guidelines based on clinical scenario and Heparin Assay results, please refer to local Pharmacy and the [facility] Guidelines for Anticoagulation Therapy available on the [facility] intranet at: [email or web address] [facility] hospitalBISSELL [employer].org/Pharmacy/P ages/[place]_[facility] ls_Guidelines_for_Antic oagu.aspx [facility] Interpretation and review of laboratory results Normal [facility] The therapeutic reference range for UFH may be either 0.3-0.6 IU/mL or 0.3-0.7 IU/mL based on the clinical setting for anticoagulant therapy and the associated nomogram used. For Heparin dosing guidelines based on clinical scenario and Heparin Assay results, please refer to local Pharmacy and [facility] Guidelines for Anticoagulation Therapy available on the [facility] intranet at: https://[employer] healthcare.[facility] Energiachiara.its.org/Pharmacy/P ages/[place]_[facility] ls_Guidelines_for_Antic oagu.aspx [facility] Interpretation and review of laboratory results [facility] The therapeutic reference range for UFH may be either 0.3-0.6 IU/mL or 0.3-0.7 IU/mL based on the clinical setting for anticoagulant therapy and the associated nomogram used. For Heparin dosing guidelines based on clinical scenario and Heparin Assay results, please refer to local Pharmacy and the [facility] Guidelines for Anticoagulation Therapy available on the [facility] intranet at: https://[employer] healthcare.[facility] Energiachiara.its.org/Pharmacy/P ages/[place]_[facility] ls_Guidelines_for_Antic oagu.aspx [facility] Interpretation and review of laboratory results Normal [facility] The therapeutic reference range for UFH may be either 0.3-0.6 IU/mL or 0.3-0.7 IU/mL based on the clinical setting for anticoagulant therapy and the associated nomogram used. For Heparin dosing guidelines based on clinical scenario and Heparin Assay results, please refer to local Pharmacy and [facility] Guidelines for Anticoagulation Therapy available on the [facility] intranet at: https://[facility] america – tulsaAlticastuk healthcare.[facility] ostals.org/Pharmacy/P ages/[place]_[facility]_Guidelines_for_Antic oagu.aspx [facility] Heparin.unfractionatedon Heparin unfractionated Chromogenic method Qn (PPP) 0.2 IU/mL Normal See Comment Below for Therapeutic Ranges [facility] Comment on above: Order Comment: The t herapeutic reference range for UFH may be either 0.3-0.6 IU/mL or 0.3-0.7 IU/mL based on the clinical setting for anticoagulant therapy and the associated nomogram used. For Heparin dosing guidelines based on clinical scenario and Heparin Assay results, please refer to local Pharmacy and the [facility] Guidelines for Anticoagulation Therapy available on the [facility] intranet at: https://OnShift.[facility] medical centerspQufenqi.org/Pharmacy/Pages/[place]_[facility]_Guidelines_for_Anticoagu.aspx Performed By: #### 3 274-8 ####BRYAN EZRA ([id number])[facility] [place] [address] Heparin unfractionated Chromogenic method Qn (PPP) 0.1 IU/mL Normal See Comment Below for Therapeutic Ranges [facility] Comment on above: Order Comment: The t herapeutic reference range for UFH may be either 0.3-0.6 IU/mL or 0.3-0.7 IU/mL based on the clinical setting for anticoagulant therapy and the associated nomogram used. For Heparin dosing guidelines based on clinical scenario and Heparin Assay results, please refer to local Pharmacy and the [facility] Guidelines for Anticoagulation Therapy available on the [facility] intranet at: https://[employer]uk healthcare.[facility].[email or web address]/Pharmacy/Pages/[place]_ spitals_Guidelines_for_Anticoagu.aspx Performed By: #### 3 274-8 ####IRVIN MUNGUIA ([id number])[facility])[address] [place] [address] Heparin unfractionated Chromogenic method Qn (PPP) 0.1 IU/mL Normal See Comment Below for Therapeutic Ranges [facility] Comment on above: Order Comment: The t herapeutic reference range for UFH may be either 0.3-0.6 IU/mL or 0.3-0.7 IU/mL based on the clinical setting for anticoagulant therapy and the associated nomogram used. For Heparin dosing guidelines based on clinical scenario and Heparin Assay results, please refer to local Pharmacy and [facility] Guidelines for Anticoagulation Therapy available on the [facility] intranet at: https://[facility]/Pharmacy/Pages/[place]_ [place]_Guidelines_for_Anticoagu.aspx Performed By: #### 3 274-8 ####IRVIN MUNGUIA ([id number])[facility])[address] [place] [address] Heparin unfractionated Chromogenic method Qn (PPP) 0.1 IU/mL Normal See Comment Below for Therapeutic Ranges [facility] Comment on above: Order Comment: When two [...] please refer to local Pharmacy and the [facility] Guidelines for Anticoagulation Therapy available on the [facility] intranet at: https://[facility].[email or web address]/Pharmacy/Pages/[place]_ spitals_Guidelines_for_Anticoagu.aspx Performed By: #### 3 274-8 ####IRVIN MUNGUIA ([id number])[facility])[address] [place], [place] [id number] Lipaseon 02-29-2024 Lipase [Catalytic activity/Vol] 33 U/L 9 - 82 U/L [facility] Lipase [Catalytic activity/V ol]on 02-29-2024 Interpretation and review of laboratory results Normal [facility] Venipuncture immediately after or during the administration of Metamizole may lead to falsely low results. Testing should be performed immediately prior to Metamizole dosing. [facility] No Panel Informationon 02-28 [facility] Triacylglycerol lipaseon Lipase [Catalytic activity/Vol] 33 U/L Normal -82 [facility] Comment on above: Order Comment: Venip uncture immediately after or during the administration of Metamizole may lead to falsely low results. Testing should be performed immediately prior to Metamizole dosing. Performed By: #### 3 040-3 ####BRYAN EZRA ([id number])[facility])[address] [place] [address] 11040 CBC panel Auto (Bld)on 02-27 Erythrocyte distribution width (RBC) [Ratio] 14.2 % 11.5 - 14.5 % [facility] Hematocrit (Bld) [Volume fraction] 35.7 % Low 36.0 - 46.0 % [facility] Hemoglobin (Bld) [Mass/Vol] 11.2 g/dL Low 12.0 - 16.0 g/dL [facility] Interpretation and review of laboratory results Abnormal [facility] MCH (RBC) [Entitic mass] 27.9 pg 26.0 - 34.0 pg [facility] MCHC (RBC) [Mass/Vol] 31.4 g/dL Low 32.0 - 36.0 g/dL [facility] MCV (RBC) [Entitic vol] 89 fL 80 - 100 fL [facility] Nucleated RBC/100 WBC (Bld) [Ratio] 0.0 % [facility] Platelets (Bld) [#/Vol] 344 10*3/uL [facility] RBC (Bld) [#/Vol] 4.02 10*6/uL [facility] WBC (Bld) [#/Vol] 9.7 10*3/uL [facility] Erythrocyte distribution width (RBC) [Ratio] 14.2 % Normal 11.5-14.5 [facility] Comment on above: Performed By: #### 5 8410-2 ####IRVIN MUNGUIA ([id number])[facility])[address] [place] [address]957 Hematocrit (Bld) [Volume fraction] 35.7 % Low 36.0-46.0 [facility] Comment on above: Performed By: #### 5 8410-2 ####IRVIN MUNGUIA ([id number])[facility])[address] [place] [address] 66309 Hemoglobin (Bld) [Mass/Vol] 11.2 g/dL Low 12.0-16.0 [facility] Comment on above: Performed By: #### 5 8410-2 ####IRVIN MUNGUIA ([id number])[facility])[address] [place] [address] 05322 MCH (RBC) [Entitic mass] 27.9 pg Normal 26.0-34.0 [facility] Comment on above: Performed By: #### 5 8410-2 ####IRVIN MUNGUIA ([id number])[facility])[address] [place] [address] 30052 MCHC (RBC) [Mass/Vol] 31.4 g/dL Low 32.0-36.0 [facility] Comment on above: Performed By: #### 5 8410-2 ####IRVIN MUNGUIA ([id number])[facility])[address] [place] [address] 93173 MCV (RBC) [Entitic vol] 89 fL Normal 80-100 [facility] Comment on above: Performed By: #### 5 8410-2 ####IRVIN MUNGUIA ([id number])[facility])[address] [place] [address] 02289 Nucleated RBC/100 WBC (Bld) [Ratio] 0.0 /100 WBCs Normal 0.0-0.0 [facility] Comment on above: Performed By: #### 5 8410-2 ####IRVIN MUNGUIA ([id number])[facility])[address] [place] [address] 44706 Platelets (Bld) [#/Vol] 344 x10*3/uL Normal 150-450 [facility] Comment on above: Performed By: #### 5 8410-2 ####IRVIN MUNGUIA ([id number])[facility])[address] [place] [address] RBC (Bld) [#/Vol] 4.02 x10*6/uL Normal 4.00-5.20 [facility] Comment on above: Performed By: #### 5 8410-2 ####IRVIN MUNGUIA ([id number])[facility])[address] [place] [address] 83728 WBC (Bld) [#/Vol] 9.7 x10*3/uL Normal 4.4-11.3 [facility] Comment on above: Performed By: #### 5 8410-2 ####IRVIN MUNGUIA ([id number])[facility])[address] [place], [place] [id number] CT Chest W contrast IV and C [...] pulmonary embolism. COMPARISON: None Available. ACCESSION NUMBER(S): [id number] ORDERING CLINICIAN: MIKE LAND TECHNIQUE: CTA of [...] pulmonary embolism. COMPARISON: None Available. ACCESSION NUMBER(S): [id number] ORDERING CLINICIAN: MIKE LAND TECHNIQUE: CTA of [...] AM. 2.Fatty liver. Signed by Edwin Alejandro, [facility] Work Phone: CT Chest W contrast IV and C T angiogram Pulmonary arteries for pulmonary embolus W contrast IVOrdered By: Edwin Alejandro on 02-28-2024 [facility] Work Phone: Coagulation surface inducedo n 02-28-2024 aPTT Coag (PPP) [Time] 30 s Normal 27-38 [facility] Comment on above: Order Comment: Basel ine aPTT before initiating heparin infusion. Nursing to release order.The APTT is no longer used for monitoring Unfractionated Heparin Therapy. For monitoring Heparin Therapy, use the Heparin Assay. Performed By: #### 1 4979-9 ####IRVIN MUNGUIA ([id number])[facility])[address] [place], [place] [phone] Coagulation tissue factor in ducedon 02-28-2024 PT Coag (PPP) [Time] 13.8 s High 9.8-12.8 [facility] Comment on above: Order Comment: If nawaf earl has not had PT + INR in the last 24 hours. Nursing to release order. Performed By: #### 5 902-2 ####IRVIN MUNGUIA ([id number])[facility])[address] [place] [address] 47090 Comprehensive metabolic 2000 panelon 02-28-2024 Albumin BCP dye [Mass/Vol] 3.6 g/dL 3.4 - 5.0 g/dL [facility] ALP [Catalytic activity/Vol] 144 U/L High 33 - 110 U/L [facility] ALT With P-5'-P [Catalytic activity/Vol] 29 U/L 7 - 45 U/L [facility] Comment on above: Patients treated wit h Sulfasalazine may generate falsely decreased results for ALT. Anion gap [Moles/Vol] 13 mmol/L 10 - 2 0 mmol/L [facility] AST With P-5'-P [Catalytic activity/Vol] 36 U/L 9 - 39 U/L [facility] Bilirubin [Mass/Vol] 0.3 mg/dL 0.0 - 1 .2 mg/dL [facility] Calcium [Mass/Vol] 8.4 mg/dL Low 8.6 - 10. 3 mg/dL [facility] Chloride [Moles/Vol] 101 mmol/L 98 - 10 7 mmol/L [facility] CO2 [Moles/Vol] 24 mmol/L 21 - 32 mmol/L [facility] Creatinine [Mass/Vol] 0.67 mg/dL 0.50 - 1.05 mg/dL [facility] eGFR - PINF [facility] Comment on above: Calculations of estuardo mated GFR are performed using the 2020 CKD-EPI Study Refit equation without the race variable for the IDMS-Traceable creatinine methods. https://jasn.asnjournals.org/content//ASN.485009 6651 Glucose [Mass/Vol] 125 mg/dL High 74 - 99 mg/dL [facility] Interpretation and review of laboratory results Abnormal [facility] Potassium [Moles/Vol] 4.0 mmol/L 3.5 - 5.3 mmol/L [facility] Protein [Mass/Vol] 7.3 g/dL 6.4 - 8.2 g/dL [facility] Sodium [Moles/Vol] 134 mmol/L Low 136 - 145 mmol/L [facility] Urea nitrogen [Mass/Vol] 12 mg/dL 6 - 23 mg/dL [facility] Albumin BCP dye [Mass/Vol] 3.6 g/dL Normal 3.4-5.0 [facility] Comment on above: Performed By: #### 2 4323-8 ####IRVIN MUNGUIA ([id number])[facility])[address] [place] [address]9705 ALP [Catalytic activity/Vol] 144 U/L High 33-110 [facility] Comment on above: Performed By: #### 2 4323-8 ####IRVIN MUNGUIA ([id number])[facility])[address] [place] [address] 33584 ALT With P-5'-P [Catalytic activity/Vol] 29 U/L Normal 7-45 [facility] Comment on above: Result Comment: Evelyn ents treated with Sulfasalazine may generate falsely decreased results for ALT. Performed By: #### 2 4323-8 ####IRVIN MUNGUIA ([id number])[facility])[address] [place] [address] 09100 Anion gap [Moles/Vol] 13 mmol/L Normal 10-20 [facility] Comment on above: Performed By: #### 2 4323-8 ####IRVIN MUNGUIA ([id number])[facility])[address] [place] [address] 22044 AST With P-5'-P [Catalytic activity/Vol] 36 U/L Normal 9-39 [facility] Comment on above: Performed By: #### 2 4323-8 ####IRVIN MUNGUIA ([id number])[facility])[address] [place] [address] 19410 Bilirubin [Mass/Vol] 0.3 mg/dL Normal 0.0-1.2 [facility] Comment on above: Performed By: #### 2 4322-8 ####IRVIN MUNGUIA ([id number])[facility])[address] [place] [address] 67271 Calcium [Mass/Vol] 8.4 mg/dL Low 8.6-10.3 [facility] Comment on above: Performed By: #### 2 432-8 ####IRVIN MUNGUIA ([id number])[facility])[address] [place] [address] 61285 Chloride [Moles/Vol] 101 mmol/L Normal 98-107 [facility] Comment on above: Performed By: #### 2 432-8 ####IRVIN MUNGUIA ([id number])[facility])[address] [place] [address] 68361 CO2 [Moles/Vol] 24 mmol/L Normal 21-32 [facility] Comment on above: Performed By: #### 2 4323-8 ####IRVIN MUNGUIA ([id number])[facility])[address] [place] [address] 96217 Creatinine [Mass/Vol] 0.67 mg/dL Normal 0.50-1.05 [facility] Comment on above: Performed By: #### 2 4323-8 ####IRVIN MUNGUIA ([id number])[facility])[address] [place] [address] 60848 GFR/1.73 sq M.predicted MDRD (S/P/Bld) [Vol rate/Area] mL/min/{1.73_m2} Normal >60 [facility] Comment on above: Result Comment: Calc ulations of estimated GFR are performed using the 2020 CKD-EPI Study Refit equation without the race variable for the IDMS-Traceable creatinine methods.https://jasn.asnjournals.org/content/early// N.4929628586 Performed By: #### 2 4323-8 ####IRVIN MUNGUIA ([id number])[facility])[address] [place] [address] 08470 Glucose [Mass/Vol] 125 mg/dL High 74-99 [facility] Comment on above: Performed By: #### 2 4323-8 ####IRVIN MUNGUIA ([id number])[facility])[address] [place] [address] 88335 Potassium [Moles/Vol] 4.0 mmol/L Normal 3.5-5.3 [facility] Comment on above: Performed By: #### 2 4323-8 ####IRVIN MUNGUIA ([id number])[facility])[address] [place] [address] 00773 Protein [Mass/Vol] 7.3 g/dL Normal 6.4-8.2 [facility] Comment on above: Performed By: #### 2 4323-8 ####IRVIN MUNGUIA ([id number])[facility])[address] [place] [address] 26614 Sodium [Moles/Vol] 134 mmol/L Low 136-145 [facility] Comment on above: Performed By: #### 2 4323-8 ####IRVIN MUNGUIA ([id number])[facility])[address] [place] [address] 59592 Urea nitrogen [Mass/Vol] 12 mg/dL Normal 6-23 [facility] Comment on above: Performed By: #### 2 4323-8 ####BRYAN EZRA ([id number])[facility] [place] [address] ECG 12 LeadOrdered By: Harmony Naik on 02-28-2024 Atrial Rate 101 BPM [facility] Work Phone: P [place] 38 degrees [facility] Work Phone: P Offset 206 ms [facility] Work Phone: P Onset 154 ms [facility] Work Phone: HI Interval 140 ms [facility] Work Phone: Q Onset 224 ms [facility] Work Phone: QRS Count 17 beats [facility] Work Phone: QRS Duration 84 ms [facility] Work Phone: QT Interval 348 ms [facility] Work Phone: QTC Calculation(Bazett) 451 [facility] Work Phone: QTC Fredericia 414 [facility] Work Phone: R [place] 8 degrees [facility] Work Phone: T [place] 35 degrees [facility] Work Phone: T Offset 398 ms [facility] Work Phone: Ventricular Rate 101 BPM [facility] Work Phone: [facility] Work Phone: ECG 12 Leadon 02-28-2024 Sinus tachycardia Otherwise normal ECG When compared with ECG of 15-FEB-2024 20:28, No significant change was found Confirmed by Dominick Naik ([id number]) on 02/28/2024 9:53:18 PM MUSE Dominick Naik MD - 02/28/2024 Sinus tachycardia Otherwise normal ECG When compared with ECG of 15-FEB-2024 20:, No significant change was found Confirmed by Dominick Naik ([id number]) on 02/28/2024 9:53:18 PM [facility] Work Phone: ECG 12-LEADon 02-28-2024 ECG 12-LEAD Ventricular Rate 101 Atrial Rate 101 P-R Interval 140 QRS Duration 84 Q-T Interval 348 QTC Calculation(Bazett) 451 P [place] 38 R [place] 8 T [place] 35 QRS Count 17 Q Onset 224 P Onset 154 P Offset 206 T Offset 398 QTC Fredericia 414 Diagnosis Sinus tachycardia Otherwise normal ECG When compared with ECG of 15-Feb-2024:, No significant change was found Confirmed by Dominick Naik ([id number]) on 02/28/2024 9:53:18 PM Normal [facility] Glucose Test strip manual (B ld) [Mass/Vol]on 02-28-2024 Glucose [Mass/Vol] 160 mg/dL High 74 - 99 mg/dL [facility] Interpretation and review of laboratory results Abnormal [facility] Glucose [Mass/Vol] 160 mg/dL High 74-99 [facility] Comment on above: Performed By: #### 2 341-6 ####IRVIN MUNGUIA ([id number])[facility])[address] [place] [address] 56353 Glucose [Mass/Vol] 129 mg/dL High 74 - 99 mg/dL [facility] Interpretation and review of laboratory results Abnormal [facility] Glucose [Mass/Vol] 129 mg/dL High 74-99 [facility] Comment on above: Performed By: #### 2 341-6 ####IRVIN MUNGUIA ([id number])[facility] [place] [address] 33597 Glucose [Mass/Vol] 170 mg/dL High 74 - 99 mg/dL [facility] Interpretation and review of laboratory results Abnormal [facility] Glucose [Mass/Vol] 170 mg/dL High 74-99 [facility] Comment on above: Performed By: #### 2 341-6 ####IRVIN MUNGUIA ([id number])[facility] [place] [address] Glucose [Mass/Vol] 147 mg/dL High 74 - 99 mg/dL [facility] Interpretation and review of laboratory results Abnormal [facility] Glucose [Mass/Vol] 147 mg/dL High 74-99 [facility] Comment on above: Performed By: #### 2 341-6 ####IRVIN MUNGUIA ([id number])[facility] [place] [address] Heparin Assayon 02-28-2024 Heparin unfractionated Chromogenic method Qn (PPP) 0.3 See Comment Below for Therapeutic Ranges IU/mL [facility] Heparin unfractionated Chromogenic method Qn (PPP) 0.7 See Comment Below for Therapeutic Ranges IU/mL [facility] Heparin unfractionated Chrom ogenic method Qn (PPP)on 02-28-2024 Interpretation and review of laboratory results Normal [facility] The therapeutic reference range for UFH may be either 0.3-0.6 IU/mL or 0.3-0.7 IU/mL based on the clinical setting for anticoagulant therapy and the associated nomogram used. For Heparin dosing guidelines based on clinical scenario and Heparin Assay results, please refer to local Pharmacy and [facility] Guidelines for Anticoagulation Therapy available on the [facility] intranet at: [email or web address]://[email or web address] [email or web address]/Pharmacy/P ages/[place]_[facility] ls_Guidelines_for_Antic oagu.aspx [facility] Interpretation and review of laboratory results Normal [facility] The therapeutic reference range for UFH may be either 0.3-0.6 IU/mL or 0.3-0.7 IU/mL based on the clinical setting for anticoagulant therapy and the associated nomogram used. For Heparin dosing guidelines based on clinical scenario and Heparin Assay results, please refer to local Pharmacy and [facility] Guidelines for Anticoagulation Therapy available on the [facility] intranet at: [email or web address]://[email or web address] [employer].[email or web address]/Pharmacy/P ages/[place]_[facility] ls_Guidelines_for_Antic oagu.aspx [facility] Heparin.unfractionatedon Heparin unfractionated Chromogenic method Qn (PPP) 0.3 IU/mL Normal See Comment Below for Therapeutic Ranges [facility] Comment on above: Order Comment: The t herapeutic reference range for UFH may be either 0.3-0.6 IU/mL or 0.3-0.7 IU/mL based on the clinical setting for anticoagulant therapy and the associated nomogram used. For Heparin dosing guidelines based on clinical scenario and Heparin Assay results, please refer to local Pharmacy and [facility] Guidelines for Anticoagulation Therapy available on the [facility] intranet at: [email or web address]://[email or web address]/Pharmacy/Pages/[place]_Guidelines_for_Anticoagu.aspx Performed By: #### 3 274-8 ####IRVIN MUNGUIA ([id number])[facility])[address] [place] [address] Heparin unfractionated Chromogenic method Qn (PPP) 0.7 IU/mL Normal See Comment Below for Therapeutic Ranges [facility] Comment on above: Order Comment: The t herapeutic reference range for UFH may be either 0.3-0.6 IU/mL or 0.3-0.7 IU/mL based on the clinical setting for anticoagulant therapy and the associated nomogram used. For Heparin dosing guidelines based on clinical scenario and Heparin Assay results, please refer to local Pharmacy and [facility] Guidelines for Anticoagulation Therapy available on the [facility] intranet at: [email or web address] Performed By: #### 3 274-8 ####IRVIN MUNGUIA ([id number])[facility])[address] [place] [address] No Panel Informationon 02-27 Extra Tube Hold for add-ons. [facility] Comment on above: Auto resulted. [facility] PT Coag (PPP) [Time]on 02-27 INR Coag (PPP) [Relative time] 1.2 {INR} High 0.9 - 1.1 [facility] Interpretation and review of laboratory results Abnormal [facility] INR Coag (PPP) [Relative time] 1.2 High 0.9-1.1 [facility] Comment on above: Order Comment: If nawaf earl has not had PT + INR in the last 24 hours. Nursing to release order. Performed By: #### 5 902-2 ####BRYAN EZRA ([id number])[facility])[address] [place] [address] Protime-INRon 02-28-2024 PT Coag (PPP) [Time] 13.[address] [facility] TRANSTHORACIC ECHO (TTE) COM PLETEon 02-28-2024 TRANSTHORACIC ECHO (TTE) COMPLETE Normal [facility] US Heart TransthoracicOrdere d By: Leon Barrera on 02-28-2024 Aortic Valve Area by Continuity of Peak Velocity 2.01 cm2 [facility] Work Phone: Aortic Valve Area by Continuity of VTI 1.84 cm2 [facility] Work Phone: AV mn grad 7.0 mmHg [facility] Work Phone: AV pk grad 14.7 mmHg [facility] Work Phone: AV pk alice 1.92 m/s [facility] Work Phone: LA vol index A/L 11.3 ml/m2 [facility] Work Phone: LV A4C EF 51.7 [facility] Work Phone: LV Biplane EF 76 % [facility] Work Phone: LVIDd 4.21 cm [facility] Work Phone: LVOT diam 1.90 cm [facility] Work Phone: MV avg E/e' ratio 14.13 [facility] Work Phone: MV E/A ratio 0.91 [facility] Work Phone: RVSP 31.7 mmHg [facility] Work Phone: Tricuspid annular plane systolic excursion 1.9 cm [facility] Work Phone: [facility] Work Phone: US [place] [address] ext-[phone], TRANSTHORACIC ECHOCARDIOGRAM REPORT Patient Name: DOROTHEA Lees Physician: [id number] Leon Barrera MD Study Date: 02/28/2024 Ordering Provider: [id number] BREA NOLEN MRN/PID: [id number] Fellow: Nurse: Elyssa Simental RN Date of /Age: 4 1975 / 48 years Portfolio Specialist: Dianna Hunter RVT, BUNNY Gender: F Additional Staff: Height: 162.56 cm Admit Date: 02/27/2024 Weight: 102.51 kg Admission Status: Inpatient - Routine BSA / BMI: 2.06 m2 / 38.79 kg/m2 Department Location: [address] Blood Pressure: 147 /81 mmHg Study Type: TRANSTHORACIC ECHO (TTE) COMPLETE Diagnosis/ICD: Single subsegmental Pulmonary embolism without acute cor pulmonale-I26.93 Indication: PE CPT Codes: Echo Complete w Full Doppler-68755 Patient History: Pertinent History: No previous echo. [...] LA Area A2C: 13.5 cm2 LA [place] A4C: 5.2 cm LA [place] A2C: 5.5 cm LA Volume Index: 13.1 [...] not included)... Leon Samson MD - 02/28/2024 [place] [address] ext-[phone], TRANSTHORACIC ECHOCARDIOGRAM REPORT Patient Name: DOROTHEA Lees Physician: [id number] Leon Barrera MD Study Date: 02/28/2024 Ordering Provider: [id number] BREA NOLEN MRN/PID: [id number] Fellow: Nurse: Elyssa Simental RN Date of /Age: 4 1975 / 48 years Portfolio Specialist: BUNNY Higuera RVT Gender: F Additional Staff: Height: 162.56 cm Admit Date: 02/27/2024 Weight: 102.51 kg Admission Status: Inpatient - Routine BSA / BMI: 2.06 m2 / 38.79 kg/m2 Department Location: [address] Blood Pressure: 147 /81 mmHg Study Type: TRANSTHORACIC ECHO (TTE) COMPLETE Diagnosis/ICD: Single subsegmental Pulmonary embolism without acute cor pulmonale-I26.93 Indication: PE CPT Codes: Echo Complete w Full Doppler-03510 Patient History: Pertinent History: No previous echo. [...] LA Area A2C: 13.5 cm2 LA [place] A4C: 5.2 cm LA [place] A2C: 5.5 cm LA Volume Index: 13.1 [...] Accel Time: 85 msec (>120ms) PV Max Ailce: 1.6 m/s (0.6-0.9m/s) PV Max P.6 mmHg [id number] Leon Barrera MD Electronically signed on 02/28/2024 at 10:49: (more content not included)... [facility] Work Phone: US.doppler Lower extremity v ein - bilateralon 02-28-2024 [place] [address] ext-[phone], Vascular Lab Report VASC US LOWER EXTREMITY VENOUS DUPLEX BILATERAL Patient Name: DOROTHEA Lees Physician: [id number] Princess Ramírez MD Study Date: 02/28/2024 Ordering Provider: [id number] BREA NOLEN MRN/PID: [id number] Fellow: Technologist: Radha Lewis RVRufina/ Date of /Age: 4 1975 Technologist 2: years Gender: F Admission Status: Inpatient Location [facility] Performed: Diagnosis/ICD: Other pulmonary embolism without acute cor pulmonale-I26.99 CPT Codes: 18211 Peripheral venous duplex scan for DVT complete [...] Popliteal Yes None Spontaneous/Phasic Peroneal Yes None [id number] Princess Ramírez MD Final Princess Cook MD - 02/28/2024 [place] [address] ext-[phone], Vascular Lab Report VASC US LOWER EXTREMITY VENOUS DUPLEX BILATERAL Patient Name: DOROTHEA Lees Physician: [id number] Ramírez MD Study Date: 02/28/2024 Ordering Provider: [id number] BREA NOLEN MRN/PID: [id number] Fellow: Technologist: Radha Lewis RVT/ Date of /Age: 4 1975 Technologist 2: years Gender: F Admission Status: Inpatient Location [facility] Performed: Diagnosis/ICD: Other pulmonary embolism without acute cor pulmonale-I26.99 CPT Codes: 73708 Peripheral venous duplex scan for DVT complete [...] Popliteal Yes None Spontaneous/Phasic Peroneal Yes None [id number] Princess Ramírez MD Final [facility] Work Phone: Radiology Study observation (narrative) [facility] Work Phone: US.doppler Lower extremity v ein - bilateralOrdered By: Princess Ramírez on 02-28-2024 [facility] Work Phone: VASC US LOWER EXTREMITY VENO US DUPLEX BILATERALon 02-28-2024 VASC US LOWER EXTREMITY VENOUS DUPLEX BILATERAL Normal [facility] aPTT - baselineon 02-28-2024 aPTT Coag (PPP) [Time] 30 s [facility] aPTT Coag (PPP) [Time]on Interpretation and review of laboratory results Normal [facility] The APTT is no longe r used for monitoring Unfractionated Heparin Therapy. For monitoring Heparin Therapy, use the Heparin Assay. [facility] Basic metabolic 2000 panelon 02-27-2024 Anion gap [Moles/Vol] 14 mmol/L 10 - 2 0 mmol/L [facility] Calcium [Mass/Vol] 8.8 mg/dL 8.6 - 10. 3 mg/dL [facility] Chloride [Moles/Vol] 100 mmol/L 98 - 10 7 mmol/L [facility] CO2 [Moles/Vol] 24 mmol/L 21 - 32 mmol/L [facility] Creatinine [Mass/Vol] 0.95 mg/dL 0.50 - 1.05 mg/dL [facility] GFR/1.73 sq M.predicted among non-blacks MDRD (S/P/Bld) [Vol rate/Area] 74 mL/min/{1.73_m2} - PINF [facility] Comment on above: Calculations of estuardo mated GFR are performed using the 2020 CKD-EPI Study Refit equation without the race variable for the IDMS-Traceable creatinine methods. https://jasn.asnjournals.org/content//ASN.197125 1013 Glucose [Mass/Vol] 200 mg/dL High 74 - 99 mg/dL [facility] Potassium [Moles/Vol] 4.1 mmol/L 3.5 - 5.3 mmol/L [facility] Sodium [Moles/Vol] 134 mmol/L Low 136 - 145 mmol/L [facility] Urea nitrogen [Mass/Vol] 15 mg/dL 6 - 23 mg/dL [facility] Anion gap [Moles/Vol] 14 mmol/L Normal 10-20 [facility] Comment on above: Performed By: #### 2 4321-2 ####IRVIN MUNGUIA ([id number])[facility])[address] [place] [address] 09459 Calcium [Mass/Vol] 8.8 mg/dL Normal 8.6-10.3 [facility] Comment on above: Performed By: #### 2 4321-2 ####IRVIN MUNGUIA ([id number])[facility])[address] [place] [address] 92314 Chloride [Moles/Vol] 100 mmol/L Normal 98-107 [facility] Comment on above: Performed By: #### 2 4321-2 ####IRVIN MUNGUIA ([id number])[facility])[address] [place] [address] 56580 CO2 [Moles/Vol] 24 mmol/L Normal 21-32 [facility] Comment on above: Performed By: #### 2 4321-2 ####IRVIN MUNGUIA ([id number])[facility])[address] [place] [address] 32196 Creatinine [Mass/Vol] 0.95 mg/dL Normal 0.50-1.05 [facility] Comment on above: Performed By: #### 2 4321-2 ####IRVIN MUNGUIA ([id number])[facility])[address] [place] [address] 38734 Glomerular filtration rate/1.73 sq M.predicted 74 mL/min/1.73m*2 Normal >60 [facility] Comment on above: Result Comment: Calc ulations of estimated GFR are performed using the 2020 CKD-EPI Study Refit equation without the race variable for the IDMS-Traceable creatinine methods.https://jasn.asnjournals.org/content/early/ N.2857751236 Performed By: #### 2 4321-2 ####IRVIN MUNGUIA ([id number])[facility])[address] [place] [address] 52480 Glucose [Mass/Vol] 200 mg/dL High 74-99 [facility] Comment on above: Performed By: #### 2 4321-2 ####IRVIN MUNGUIA ([id number])[facility])[address] [place] [address] 82839 Potassium [Moles/Vol] 4.1 mmol/L Normal 3.5-5.3 [facility] Comment on above: Performed By: #### 2 4321-2 ####IRVIN MUNGUIA ([id number])[facility])[address] [place] [address] 27581 Sodium [Moles/Vol] 134 mmol/L Low 136-145 [facility] Comment on above: Performed By: #### 2 4321-2 ####IRVIN MUNGUIA ([id number])[facility])[address] [place] [address] 25477 Urea nitrogen [Mass/Vol] 15 mg/dL Normal 6-23 [facility] Comment on above: Performed By: #### 2 4321-2 ####IRVIN MUNGUIA ([id number])[facility])[address] [place] [address] 90846 CBC W Auto Differential pane l (Bld)on 02-27-2024 Basophils (Bld) [#/Vol] 0.03 10*3/uL [facility] Basophils/100 WBC (Bld) 0.2 % 0.0 - 2.0 % [facility] Eosinophils (Bld) [#/Vol] 0.10 10*3/uL [facility] Eosinophils/100 WBC (Bld) 0.8 % 0.0 - 6.0 % [facility] Erythrocyte distribution width (RBC) [Ratio] 14.0 % 11.5 - 14.5 % [facility] Hematocrit (Bld) [Volume fraction] 36.8 % 36.0 - 46.0 % [facility] Hemoglobin (Bld) [Mass/Vol] 11.4 g/dL Low 12.0 - 16.0 g/dL [facility] Immature granulocytes (Bld) [#/Vol] 0.11 10*3/uL [facility] Immature granulocytes/100 WBC (Bld) 0.9 % 0.0 - 0.9 % [facility] Comment on above: Immature Granulocyte Count (IG) includes promyelocytes, myelocytes and metamyelocytes but does not include bands. Percent differential counts (%) should be interpreted in the context of the absolute cell counts (cells/UL). Interpretation and review of laboratory results Abnormal [facility] Lymphocytes (Bld) [#/Vol] 2.94 10*3/uL [facility] Lymphocytes/100 WBC (Bld) 23.6 % 13.0 - 44.0 % [facility] MCH (RBC) [Entitic mass] 27.4 pg 26.0 - 34.0 pg [facility] MCHC (RBC) [Mass/Vol] 31.0 g/dL Low 32.0 - 36.0 g/dL [facility] MCV (RBC) [Entitic vol] 89 fL 80 - 100 fL [facility] Monocytes (Bld) [#/Vol] 0.72 10*3/uL [facility] Monocytes/100 WBC (Bld) 5.8 % 2.0 - 10.0 % [facility] Neutrophils (Bld) [#/Vol] 8.58 10*3/uL High [facility] Comment on above: Percent differential counts (%) should be interpreted in the context of the absolute cell counts (cells/uL). Neutrophils/100 WBC (Bld) 68.7 % 40.0 - 80.0 % [facility] Nucleated RBC/100 WBC (Bld) [Ratio] 0.0 % [facility] Platelets (Bld) [#/Vol] 327 10*3/uL [facility] RBC (Bld) [#/Vol] 4.16 10*6/uL [facility] WBC (Bld) [#/Vol] 12.5 10*3/uL High [facility] Basophils (Bld) [#/Vol] 0.03 x10*3/uL Normal 0.00-0.10 [facility] Comment on above: Performed By: #### 5 7021-8 ####IRVIN MUNGUIA ([id number])[facility])[address] [place] [address] 23808 Basophils/100 WBC (Bld) 0.2 % Normal 0.0-2.0 [facility] Comment on above: Performed By: #### 5 7021-8 ####IRVIN MUNGUIA ([id number])[facility])[address] [place] [address] 55444 Eosinophils (Bld) [#/Vol] 0.10 x10*3/uL Normal 0.00-0.70 [facility] Comment on above: Performed By: #### 5 7021-8 ####IRVIN MUNGUIA ([id number])[facility])[address] [place] [address] 23325 Eosinophils/100 WBC (Bld) 0.8 % Normal 0.0-6.0 [facility] Comment on above: Performed By: #### 5 7021-8 ####IRVIN MUNGUIA ([id number])[facility])[address] [place] [address] 72556 Erythrocyte distribution width (RBC) [Ratio] 14.0 % Normal 11.5-14.5 [facility] Comment on above: Performed By: #### 5 7021-8 ####IRVIN MUNGUIA ([id number])[facility])[address] [place] [address] 52022 Hematocrit (Bld) [Volume fraction] 36.8 % Normal 36.0-46.0 [facility] Comment on above: Performed By: #### 5 7021-8 ####IRVIN MUNGUIA ([id number])[facility])[address] [place] [address] 84697 Hemoglobin (Bld) [Mass/Vol] 11.4 g/dL Low 12.0-16.0 [facility] Comment on above: Performed By: #### 5 7021-8 ####IRVIN MUNGUIA (09061)[facility])[address] [place] [address] 11489 Immature granulocytes (Bld) [#/Vol] 0.11 x10*3/uL Normal 0.00-0.70 [facility] Comment on above: Performed By: #### 5 7021-8 ####IRVIN MUNGUIA ([id number])[facility] [place] [address] 83920 Immature granulocytes/100 WBC (Bld) 0.9 % Normal 0.0-0.9 [facility] Comment on above: Result Comment: Debbie ture Granulocyte Count (IG) includes promyelocytes, myelocytes and metamyelocytes but does not include bands. Percent differential counts (%) should be interpreted in the context of the absolute cell counts (cells/UL). Performed By: #### 5 7021-8 ####IRVIN MUNGUIA ([id number])[facility])[address] [place] [address] 83782 Lymphocytes (Bld) [#/Vol] 2.94 x10*3/uL Normal 1.20-4.80 [facility] Comment on above: Performed By: #### 5 7021-8 ####IRVIN MUNGUIA ([id number])[facility])[address] [place] [address] 38986 Lymphocytes/100 WBC (Bld) 23.6 % Normal 13.0-44.0 [facility] Comment on above: Performed By: #### 5 7021-8 ####IRVIN MUNGUIA ([id number])[facility])[address] [place] [address] 66805 MCH (RBC) [Entitic mass] 27.4 pg Normal 26.0-34.0 [facility] Comment on above: Performed By: #### 5 7021-8 ####IRVIN MUNGUIA ([id number])[facility])[address] [place] [address] 70470 MCHC (RBC) [Mass/Vol] 31.0 g/dL Low 32.0-36.0 [facility] Comment on above: Performed By: #### 5 7021-8 ####IRVIN MUNGUIA ([id number])[facility])[address] [place] [address] 88910 MCV (RBC) [Entitic vol] 89 fL Normal 80-100 [facility] Comment on above: Performed By: #### 5 7021-8 ####IRVIN MUNGUIA ([id number])[facility])[address] [place] [address] 97794 Monocytes (Bld) [#/Vol] 0.72 x10*3/uL Normal 0.10-1.00 [facility] Comment on above: Performed By: #### 5 7021-8 ####IRVIN MUNGUIA ([id number])[facility])[address] [place] [address] 21709 Monocytes/100 WBC (Bld) 5.8 % Normal 2.0-10.0 [facility] Comment on above: Performed By: #### 5 7021-8 ####IRVIN MUNGUIA ([id number])[facility])[address] [place] [address] 71217 Neutrophils (Bld) [#/Vol] 8.58 x10*3/uL High 1.20-7.70 [facility] Comment on above: Result Comment: Perc ent differential counts (%) should be interpreted in the context of the absolute cell counts (cells/uL). Performed By: #### 5 7021-8 ####IRVIN MUNGUIA ([id number])[facility])[address] [place] [address] 13713 Neutrophils/100 WBC (Bld) 68.7 % Normal 40.0-80.0 [facility] Comment on above: Performed By: #### 5 7021-8 ####IRVIN MUNGUIA ([id number])[facility])[address] [place] [address] 67994 Nucleated RBC/100 WBC (Bld) [Ratio] 0.0 /100 WBCs Normal 0.0-0.0 [facility] Comment on above: Performed By: #### 5 7021-8 ####IRVIN MUNGUIA ([id number])[facility])[address] [place] [address] 58305 Platelets (Bld) [#/Vol] 327 x10*3/uL Normal 150-450 [facility] Comment on above: Performed By: #### 5 7021-8 ####IRVIN MUNGUIA ([id number])[facility])[address] [place] [address] 80128 RBC (Bld) [#/Vol] 4.16 x10*6/uL Normal 4.00-5.20 [facility] Comment on above: Performed By: #### 5 7021-8 ####IRVIN MUNGUIA ([id number])[facility] [place] [address] 74130 WBC (Bld) [#/Vol] 12.5 x10*3/uL High 4.4-11.3 [facility] Comment on above: Performed By: #### 5 7021-8 ####IRVIN MUNGUIA ([id number])[facility])[address] [place] [address] ABDOMEN PELVIS W IV CONTR Reny 02-27-2024 CT ABDOMEN PELVIS W IV CONTRAST Normal [facility] CT ANGIO CHEST FOR PULMONARY EMBOLISMon 02-27-2024 CT ANGIO CHEST FOR PULMONARY EMBOLISM Normal [facility] CT Abdomen and Pelvis W [...] Letha Jade 02/27/2024 9:21 PM Dictation workstation: [id number] [facility] Interpreted By: Letha Nicolas, STUDY: CT ABDOMEN PELVIS W IV CONTRAST; ; 02/27/2024 8:13 pm INDICATION: Signs/Symptoms:diffuse abdominal pain. COMPARISON: 02/15/2024. ACCESSION NUMBER(S): [id number] ORDERING CLINICIAN: HEMALATHA JACOBSON TECHNIQUE: Axial CT [...] ascites or free air, no fluid collection. [facility] Letha Jade MD - 02/27/2024 Interpreted By: Letha Jade, STUDY: CT ABDOMEN PELVIS W IV CONTRAST; ; 02/27/2024 8:13 pm INDICATION: Signs/Symptoms:diffuse abdominal pain. COMPARISON: 02/15/2024. ACCESSION NUMBER(S): [id number] ORDERING CLINICIAN: HEMALATHA JACOBSON TECHNIQUE: Axial CT [...] Letha Jade 02/27/2024 9:21 PM Dictation workstation: [id number] [facility] Work Phone: Radiology Study observation (narrative) [facility] Work Phone: CT Abdomen and Pelvis W cont rast IVOrdered By: Letha Jade on 02-27-2024 [facility] Work Phone: CT Chest W contrast IV and C T angiogram Pulmonary arteries for pulmonary embolus W contrast Prashant 02-27-2024 Radiology Study observation (narrative) [facility] Work Phone: Hepatic function 2000 panelo n 02-27-2024 Albumin BCP dye [Mass/Vol] 3.8 g/dL 3.4 - 5.0 g/dL [facility] ALP [Catalytic activity/Vol] 147 U/L High 33 - 110 U/L [facility] ALT With P-5'-P [Catalytic activity/Vol] 22 U/L 7 - 45 U/L [facility] Comment on above: Patients treated wit h Sulfasalazine may generate falsely decreased results for ALT. AST With P-5'-P [Catalytic activity/Vol] 21 U/L 9 - 39 U/L [facility] Bilirubin [Mass/Vol] 0.3 mg/dL 0.0 - 1 .2 mg/dL [facility] Bilirubin.direct [Mass/Vol] 0.1 mg/dL 0.0 - 0.3 mg/dL [facility] Protein [Mass/Vol] 7.7 g/dL 6.4 - 8.2 g/dL [facility] Albumin BCP dye [Mass/Vol] 3.8 g/dL Normal 3.4-5.0 [facility] Comment on above: Performed By: #### 2 4325-3 ####IRVIN MUNGUIA ([id number])[facility] [place] [address] 98481 ALP [Catalytic activity/Vol] 147 U/L High 33-110 [facility] Comment on above: Performed By: #### 2 4324-3 ####IRVIN MUNGUIA ([id number])[facility] [place] [address] 04600 ALT With P-5'-P [Catalytic activity/Vol] 22 U/L Normal 7-45 [facility] Comment on above: Result Comment: Evelyn ents treated with Sulfasalazine may generate falsely decreased results for ALT. Performed By: #### 2 4324-3 ####IRVIN MUNGUIA ([id number])[facility] [place] [address] 25251 AST With P-5'-P [Catalytic activity/Vol] 21 U/L Normal 9-39 [facility] Comment on above: Performed By: #### 2 4324-3 ####IRVIN MUNGUIA ([id number])[facility] [place] [address] 56609 Bilirubin [Mass/Vol] 0.3 mg/dL Normal 0.0-1.2 [facility] Comment on above: Performed By: #### 2 5-3 ####IRVIN MUNGUIA ([id number])[facility] [place] [address] 77024 Bilirubin.direct [Mass/Vol] 0.1 mg/dL Normal 0.0-0.3 [facility] Comment on above: Performed By: #### 2 5-3 ####IRVIN MUNGUIA ([id number])[facility] [place] [address] Protein [Mass/Vol] 7.7 g/dL Normal 6.4-8.2 [facility] Comment on above: Performed By: #### 2 4325-3 ####IRVIN MUNGUIA ([id number])[facility] [place] [address] 35605 Lactateon 02-27-2024 Lactate [Moles/Vol] 1.9 mmol/L 0.4 - 2. 0 mmol/L [facility] Lactate [Moles/Vol] 1.9 mmol/L Normal 0.4-2.0 [facility] Comment on above: Order Comment: Venip uncture immediately after or during the administration of Metamizole may lead to falsely low results. Testing should be performed immediatelyprior to Metamizole dosing. Performed By: #### 2 524-7 ####IRVIN MUNGUIA ([id number])[facility] [place] [address] 61177 Lactate [Moles/Vol]on 2023 Interpretation and review of laboratory results Normal [facility] Venipuncture immediately after or during the administration of Metamizole may lead to falsely low results. Testing should be performed immediately prior to Metamizole dosing. [facility] Lipaseon 02-27-2024 Lipase [Catalytic activity/Vol] 62 U/L 9 - 82 U/L [facility] Lipase [Catalytic activity/V ol]on 02-27-2024 Interpretation and review of laboratory results Normal [facility] Venipuncture immediately after or during the administration of Metamizole may lead to falsely low results. Testing should be performed immediately prior to Metamizole dosing. [facility] No Panel Informationon 02-26 Interpretation and review of laboratory results Abnormal [facility] Triacylglycerol lipaseon Lipase [Catalytic activity/Vol] 62 U/L Normal 9-82 [facility] Comment on above: Order Comment: Venip uncture immediately after or during the administration of Metamizole may lead to falsely low results. Testing should be performed immediately prior to Metamizole dosing. Performed By: #### 3 040-3 ####IRVIN MUNGUIA ([id number])[facility] [place] [address] Urinalysis complete W Reflex Culture panel (U)on 02-27-2024 Appearance (U) Clear Clear [facility] Bilirubin (U) [Mass/Vol] Negative NEGATIVE [facility] Color (U) Light-Yellow Light-Yellow , Yellow, Dark-Yellow [facility] Epithelial cells.squamous Auto (Urine sed) [#/Area] 1-9 (SPARSE) Reference range not established. /HPF [facility] Glucose Auto test strip (U) [Mass/Vol] Normal Normal mg/dL [facility] Interpretation and review of laboratory results Abnormal [facility] Ketones (U) [Mass/Vol] TRACE Abnormal NEGATIVE mg/dL [facility] Leukocyte esterase Auto test strip Ql (U) Negative NEGATIVE [facility] Mucus Auto (Urine sed) [#/Area] FEW Reference range not established. /LPF [facility] Nitrite Auto test strip Ql (U) Negative NEGATIVE [facility] pH (U) 6.5 [pH] 5.0, 5.5, 6.0, 6.5, 7.0, 7.5, 8.0 [facility] Protein (U) [Mass/Vol] 30 (1+) Abnormal NEGATIVE, 10 (TRACE), 20 (TRACE) mg/dL [facility] RBC (U) [#/Vol] Negative NEGATIVE [facility] RBC Auto (Urine sed) [#/Area] 1-2 NONE, 1-2, 3-5 /HPF [facility] Specific gravity (U) [Rel density] 1.033 1.005 - 1.035 [facility] Urobilinogen (U) [Mass/Vol] Normal Normal mg/dL [facility] WBC Auto (Urine sed) [#/Area] 1-5 1-5, NONE /HPF [facility] Appearance (U) Clear Normal Clear [facility] Comment on above: Performed By: #### 5 8077-9 ####IRVIN MUNGUIA ([id number])[facility])[address] [place] [address] Bilirubin (U) [Mass/Vol] Negative Normal NEGATIVE [facility] Comment on above: Performed By: #### 5 8077-9 ####IRVIN MUNGUIA ([id number])[facility])[address] [place] [address] Color (U) Light-Yellow Normal Light-Yellow , Yellow, Dark-Yellow [facility] Comment on above: Performed By: #### 5 8077-9 ####IRVIN MUNGUIA ([id number])[facility])[address] [place] [address] Epithelial cells.squamous Auto (Urine sed) [#/Area] 1-9 (SPARSE) Normal Reference range not established. [facility] Comment on above: Performed By: #### 5 8077-9 ####IRVIN MUNGUIA ([id number])[facility])[address] [place] [address] Glucose Auto test strip (U) [Mass/Vol] Normal Normal Normal [facility] Comment on above: Performed By: #### 5 8077-9 ####IRVIN MUNGUIA ([id number])[facility])[address] [place] [address] Ketones (U) [Mass/Vol] TRACE Abnormal NEGATIVE [facility] Comment on above: Performed By: #### 5 8077-9 ####IRVIN MUNGUIA ([id number])[facility])[address] [place], [place] [id number] Leukocyte esterase Auto test strip Ql (U) Negative Normal NEGATIVE [facility] Comment on above: Performed By: #### 5 8077-9 ####IRVIN MUNGUIA ([id number])[facility])[address] [place], [place] [id number] Mucus Auto (Urine sed) [#/Area] FEW Normal Reference range not established. [facility] Comment on above: Performed By: #### 5 8077-9 ####IRVIN MUNGUIA ([id number])[facility])[address] [place] [address] 90422 Nitrite Auto test strip Ql (U) Negative Normal NEGATIVE [facility] Comment on above: Performed By: #### 5 8077-9 ####IRVIN MUNGUIA ([id number])[facility])[address] [place] [address] 08940 pH (U) 6.5 [pH] Normal 5.0, 5.5, 6.0, 6.5, 7.0, 7.5, 8.0 [facility] Comment on above: Performed By: #### 5 8077-9 ####IRVIN MUNGUIA ([id number])[facility])[address] [place] [address] 90780 Protein (U) [Mass/Vol] 30 (1+) Abnormal NEGATIVE, 10 (TRACE), 20 (TRACE) [facility] Comment on above: Performed By: #### 5 8077-9 ####IRVIN MUNGUIA ([id number])[facility])[address] [place] [address] 40513 RBC (U) [#/Vol] Negative Normal NEGATIVE [facility] Comment on above: Performed By: #### 5 8077-9 ####IRVIN MUNGUIA ([id number])[facility])[address] [place] [address] 95459 RBC Auto (Urine sed) [#/Area] 1-2 Normal NONE, 1-2, 3-5 [facility] Comment on above: Performed By: #### 5 8077-9 ####IRVIN MUNGUIA ([id number])[facility])[address] [place] [address] 82767 Specific gravity (U) [Rel density] 1.033 Normal 1.005-1.035 [facility] Comment on above: Performed By: #### 5 8077-9 ####IRVIN MUNGUIA ([id number])[facility])[address] [place] [address] 32374 Urobilinogen (U) [Mass/Vol] Normal Normal Normal [facility] Comment on above: Performed By: #### 5 8077-9 ####IRVIN MUNGUIA ([id number])[facility])[address] [place] [address] 24561 WBC Auto (Urine sed) [#/Area] 1-5 Normal 1-5, NONE [facility] Comment on above: Performed By: #### 5 8077-9 ####IRVIN MUNGUIA ([id number])[facility])[address] [place] [address] 86696 Basic metabolic 2000 panelon 02-21-2024 Anion gap [Moles/Vol] 13 mmol/L Normal 10-20 [facility] Comment on above: Performed By: #### 2 4321-2 ####IRVIN MUNGUIA ([id number])[facility])[address] [place] [address] 51728 Calcium [Mass/Vol] 9.0 mg/dL Normal 8.6-10.3 [facility] Comment on above: Performed By: #### 2 4321-2 ####IRVIN MUNGUIA ([id number])[facility])[address] [place] [address] 87496 Chloride [Moles/Vol] 99 mmol/L Normal 98-107 [facility] Comment on above: Performed By: #### 2 4321-2 ####IRVIN MUNGUIA ([id number])[facility])[address] [place] [address] 98371 CO2 [Moles/Vol] 27 mmol/L Normal 21-32 [facility] Comment on above: Performed By: #### 2 4321-2 ####IRVIN MUNGUIA ([id number])[facility])[address] [place] [address] 03067 Creatinine [Mass/Vol] 0.70 mg/dL Normal 0.50-1.05 [facility] Comment on above: Performed By: #### 2 4321-2 ####IRVIN MUNGUIA ([id number])[facility])[address] [place] [address] 07413 GFR/1.73 sq M.predicted MDRD (S/P/Bld) [Vol rate/Area] mL/min/{1.73_m2} Normal >60 [facility] Comment on above: Result Comment: Calc ulations of estimated GFR are performed using the 2020 CKD-EPI Study Refit equation without the race variable for the IDMS-Traceable creatinine methods.https://jasn.asnjournals.org/content/early/ N.4370178096 Performed By: #### 2 4321-2 ####IRVIN MUNGUIA ([id number])[facility])[address] [place] [address] 65233 Glucose [Mass/Vol] 162 mg/dL High 74-99 [facility] Comment on above: Performed By: #### 2 4321-2 ####IRVIN MUNGUIA ([id number])[facility])[address] [place] [address] 78334 Potassium [Moles/Vol] 3.6 mmol/L Normal 3.5-5.3 [facility] Comment on above: Performed By: #### 2 4321-2 ####IRVIN MUNGUIA ([id number])[facility])[address] [place] [address] 16632 Sodium [Moles/Vol] 135 mmol/L Low 136-145 [facility] Comment on above: Performed By: #### 2 4321-2 ####IRVIN MUNGUIA ([id number])[facility])[address] [place] [address] 90344 Urea nitrogen [Mass/Vol] 8 mg/dL Normal 6-23 [facility] Comment on above: Performed By: #### 2 4321-2 ####IRVIN MUNGUIA ([id number])[facility])[address] [place] [address] 55601 CBC panel Auto (Bld)on 02-20 Erythrocyte distribution width (RBC) [Ratio] 14.1 % Normal 11.5-14.5 [facility] Comment on above: Performed By: #### 5 8410-2 ####IRVIN MUNGUIA ([id number])[facility])[address] [place] [address] 71105 Hematocrit (Bld) [Volume fraction] 33.1 % Low 36.0-46.0 [facility] Comment on above: Performed By: #### 5 8410-2 ####IRVIN MUNGUIA ([id number])[facility])[address] [place] [address] Hemoglobin (Bld) [Mass/Vol] 10.1 g/dL Low 12.0-16.0 [facility] Comment on above: Performed By: #### 5 8410-2 ####IRVIN MUNGUIA ([id number])[facility])[address] [place] [address] 77004 MCH (RBC) [Entitic mass] 27.4 pg Normal 26.0-34.0 [facility] Comment on above: Performed By: #### 5 8410-2 ####IRVIN MUNGUIA ([id number])[facility])[address] [place] [address] 43002 MCHC (RBC) [Mass/Vol] 30.5 g/dL Low 32.0-36.0 [facility] Comment on above: Performed By: #### 5 8410-2 ####IRVIN MUNGUIA ([id number])[facility])[address] [place] [address] 17522 MCV (RBC) [Entitic vol] 90 fL Normal 80-100 [facility] Comment on above: Performed By: #### 5 8410-2 ####IRVIN MUNGUIA ([id number])[facility])[address] [place] [address] 83485 Nucleated RBC/100 WBC (Bld) [Ratio] 0.0 /100 WBCs Normal 0.0-0.0 [facility] Comment on above: Performed By: #### 5 8410-2 ####IRVIN MUNGUIA ([id number])[facility])[address] [place] [address] 56477 Platelets (Bld) [#/Vol] 274 x10*3/uL Normal 150-450 [facility] Comment on above: Performed By: #### 5 8410-2 ####IRVIN MUNGUIA ([id number])[facility])[address] [place], [place] [address] RBC (Bld) [#/Vol] 3.69 x10*6/uL Low 4.00-5.20 [facility] Comment on above: Performed By: #### 5 8410-2 ####IRVIN MUNGUIA ([id number])[facility])[address] [place] [address] WBC (Bld) [#/Vol] 7.1 x10*3/uL Normal 4.4-11.3 [facility] Comment on above: Performed By: #### 5 8410-2 ####IRVIN MUNGUIA ([id number])[facility])[address] [place] [address] Glucose Test strip manual (B ld) [Mass/Vol]on 02-21-2024 Glucose [Mass/Vol] 155 mg/dL High [address] Comment on above: Performed By: #### 2 341-6 ####IRVIN MUNGUIA ([id number])[facility])[address] [place] [address] 35701 Glucose [Mass/Vol] 164 mg/dL High 7499 [facility] Comment on above: Performed By: #### 2 341-6 ####IRVIN MUNGUIA ([id number])[facility])[address] [place], [place] [address] Glucose [Mass/Vol] 145 mg/dL High [address] Comment on above: Performed By: #### 2 341-6 ####IRVIN MUNGUIA ([id number])[facility])[address] [place] [address] Magnesiumon 02-21-2024 Magnesium [Mass/Vol] 1.68 mg/dL Normal 1.60-2.40 [facility] Comment on above: Performed By: #### 1 9123-9 ####IRVIN MUNGUIA ([id number])[facility])[address] [place] [address] CBC panel Auto (Bld)on 02-19 Erythrocyte distribution width (RBC) [Ratio] 13.8 % Normal 11.5-14.5 [facility] Comment on above: Performed By: #### 5 8410-2 ####IRVIN MUNGUIA ([id number])[facility])[address] [place], [place] [address] Hematocrit (Bld) [Volume fraction] 31.7 % Low 36.0-46.0 [facility] Comment on above: Performed By: #### 5 8410-2 ####IRVIN MUNGUIA ([id number])[facility])[address] [place], [place] [address] Hemoglobin (Bld) [Mass/Vol] 9.9 g/dL Low 12.0-16.0 [facility] Comment on above: Performed By: #### 5 8410-2 ####IRVIN MUNGUIA ([id number])[facility])[address] [place] [address] 18290 MCH (RBC) [Entitic mass] 27.8 pg Normal 26.0-34.0 [facility] Comment on above: Performed By: #### 5 8410-2 ####IRVIN MUNGUIA ([id number])[facility])[address] [place] [address] 70411 MCHC (RBC) [Mass/Vol] 31.2 g/dL Low 32.0-36.0 [facility] Comment on above: Performed By: #### 5 8410-2 ####IRVIN MUNGUIA ([id number])[facility])[address] [place] [address] 55953 MCV (RBC) [Entitic vol] 89 fL Normal 80-100 [facility] Comment on above: Performed By: #### 5 8410-2 ####IRVIN MUNGUIA ([id number])[facility])[address] [place] [address] 90102 Nucleated RBC/100 WBC (Bld) [Ratio] 0.0 /100 WBCs Normal 0.0-0.0 [facility] Comment on above: Performed By: #### 5 8410-2 ####IRVIN MUNGUIA ([id number])[facility])[address] [place] [address] 10907 Platelets (Bld) [#/Vol] 269 x10*3/uL Normal 150-450 [facility] Comment on above: Performed By: #### 5 8410-2 ####IRVIN MUNGUIA ([id number])[facility])[address] [place] [address] 15791 RBC (Bld) [#/Vol] 3.56 x10*6/uL Low 4.00-5.20 [facility] Comment on above: Performed By: #### 5 8410-2 ####IRVIN MUNGUIA ([id number])[facility])[address] [place] [address] 75795 WBC (Bld) [#/Vol] 5.7 x10*3/uL Normal 4.4-11.3 [facility] Comment on above: Performed By: #### 5 8410-2 ####IRVIN MUNGUIA ([id number])[facility])[address] [place] [address] 89157 Comprehensive metabolic 2000 panelon 02-20-2024 Albumin BCP dye [Mass/Vol] 3.4 g/dL Normal 3.4-5.0 [facility] Comment on above: Performed By: #### 2 4323-8 ####IRVIN MUNGUIA ([id number])[facility])[address] [place] [address] 36328 ALP [Catalytic activity/Vol] 200 U/L High 33-110 [facility] Comment on above: Performed By: #### 2 4323-8 ####IRVIN MUNGUIA ([id number])[facility])[address] [place] [address] ALT With P-5'-P [Catalytic activity/Vol] 32 U/L Normal 7-45 [facility] Comment on above: Result Comment: Evelyn ents treated with Sulfasalazine may generate falsely decreased results for ALT. Performed By: #### 2 4323-8 ####IRVIN MUNGUIA ([id number])[facility] [place] [address] Anion gap [Moles/Vol] 12 mmol/L Normal 10-20 [facility] Comment on above: Performed By: #### 2 432-8 ####IRVIN MUNGUIA ([id number])[facility])[address] [place] [address] 28944 AST With P-5'-P [Catalytic activity/Vol] 17 U/L Normal 9-39 [facility] Comment on above: Performed By: #### 2 432-8 ####IRVIN MUNGUIA ([id number])[facility])[address] [place] [address] 59994 Bilirubin [Mass/Vol] 0.3 mg/dL Normal 0.0-1.2 [facility] Comment on above: Performed By: #### 2 432-8 ####IRVIN MUNGUIA ([id number])[facility])[address] [place] [address] 85399 Calcium [Mass/Vol] 8.6 mg/dL Normal 8.6-10.3 [facility] Comment on above: Performed By: #### 2 4323-8 ####IRVIN MUNGUIA ([id number])[facility])[address] [place] [address] 29850 Chloride [Moles/Vol] 100 mmol/L Normal 98-107 [facility] Comment on above: Performed By: #### 2 4323-8 ####IRVIN MUNGUIA ([id number])[facility])[address] [place] [address] CO2 [Moles/Vol] 27 mmol/L Normal 21-32 [facility] Comment on above: Performed By: #### 2 4323-8 ####IRVIN MUNGUIA ([id number])[facility])[address] [place] [address] 00895 Creatinine [Mass/Vol] 0.60 mg/dL Normal 0.50-1.05 [facility] Comment on above: Performed By: #### 2 4323-8 ####IRVIN MUNGUIA ([id number])[facility])[address] [place] [address] 71191 GFR/1.73 sq M.predicted MDRD (S/P/Bld) [Vol rate/Area] mL/min/{1.73_m2} Normal >60 [facility] Comment on above: Result Comment: Calc ulations of estimated GFR are performed using the 2020 CKD-EPI Study Refit equation without the race variable for the IDMS-Traceable creatinine methods.https://jasn.asnjournals.org/content/// N.8299761814 Performed By: #### 2 4323-8 ####IRVIN MUNGUIA ([id number])[facility] [place] [address] 31981 Glucose [Mass/Vol] 134 mg/dL High 74-99 [facility] Comment on above: Performed By: #### 2 4323-8 ####IRVIN MUNGUIA ([id number])[facility] [place] [address] 82562 Potassium [Moles/Vol] 3.4 mmol/L Low 3.5-5.3 [facility] Comment on above: Performed By: #### 2 4323-8 ####IRVIN MUNGUIA ([id number])[facility] [place] [address] 63757 Protein [Mass/Vol] 6.7 g/dL Normal 6.4-8.2 [facility] Comment on above: Performed By: #### 2 4323-8 ####IRVIN MUNGUIA ([id number])[facility] [place] [address] 31215 Sodium [Moles/Vol] 136 mmol/L Normal 136-145 [facility] Comment on above: Performed By: #### 2 4323-8 ####IRVIN MUNGUIA ([id number])[facility] [place] [address] 91527 Urea nitrogen [Mass/Vol] 8 mg/dL Normal 6-23 [facility] Comment on above: Performed By: #### 2 4323-8 ####IRVIN MUNGUIA ([id number])[facility] [place] [address] Glucose Test strip manual (B ld) [Mass/Vol]on 02-20-2024 Glucose [Mass/Vol] 130 mg/dL High [address] [place] [address] Comment on above: Performed By: #### 2 341-6 ####IRVIN MUNGUIA ([id number])[facility] [place] [address] 90326 Glucose [Mass/Vol] 131 mg/dL High [address] [place] [address] Comment on above: Performed By: #### 2 341-6 ####IRVIN MUNGUIA ([id number])[facility] [place] [address] 29120 Glucose [Mass/Vol] 128 mg/dL High [address] [place] [address] Comment on above: Performed By: #### 2 341-6 ####IRVIN MUNGUIA ([id number])[facility] [place] [address] 32978 Glucose [Mass/Vol] 138 mg/dL High [address] [place] [address] Comment on above: Performed By: #### 2 341-6 ####IRVIN MUNGUIA ([id number])[facility] [place] [address] 37765 CBC panel Auto (Bld)on 02-18 Erythrocyte distribution width (RBC) [Ratio] 13.7 % Normal 11.5-14.5 [facility] Comment on above: Performed By: #### 5 8410-2 ####IRVIN MUNGUIA ([id number])[facility])[address] [place] [address] 40512 Hematocrit (Bld) [Volume fraction] 30.3 % Low 36.0-46.0 [facility] Comment on above: Performed By: #### 5 8410-2 ####IRVIN MUNGUIA ([id number])[facility] [place] [address] 03106 Hemoglobin (Bld) [Mass/Vol] 9.3 g/dL Low 12.0-16.0 [facility] Comment on above: Performed By: #### 5 8410-2 ####IRVIN MUNGUIA ([id number])[facility] [place] [address] 36070 MCH (RBC) [Entitic mass] 27.6 pg Normal 26.0-34.0 [facility] Comment on above: Performed By: #### 5 8410-2 ####IRVIN MUNGUIA ([id number])[facility] [place] [address] 85610 MCHC (RBC) [Mass/Vol] 30.7 g/dL Low 32.0-36.0 [facility] Comment on above: Performed By: #### 5 8410-2 ####IRVIN MUNGUIA ([id number])[facility] ([facility])[address] [place] [address] 49488 MCV (RBC) [Entitic vol] 90 fL Normal 80-100 [facility] Comment on above: Performed By: #### 5 8410-2 ####IRVIN MUNGUIA ([id number])[facility] ([facility])[address] [place] [address] 31089 Nucleated RBC/100 WBC (Bld) [Ratio] 0.0 /100 WBCs Normal 0.0-0.0 [facility] Comment on above: Performed By: #### 5 8410-2 ####IRVIN MUNGUIA ([id number])[facility] ([facility])[address] [place] [address] 52653 Platelets (Bld) [#/Vol] 263 x10*3/uL Normal 150-450 [facility] Comment on above: Performed By: #### 5 8410-2 ####IRVIN MUNGUIA ([id number])[facility] ([facility])[address] [place] [address] RBC (Bld) [#/Vol] 3.37 x10*6/uL Low 4.00-5.20 [facility] Comment on above: Performed By: #### 5 8410-2 ####IRVIN MUNGUIA ([id number])[facility] ([facility])[address] [place] [address] 44066 WBC (Bld) [#/Vol] 5.4 x10*3/uL Normal 4.4-11.3 [facility] Comment on above: Performed By: #### 5 8410-2 ####IRVIN MUNGUIA ([id number])[facility] ([facility])[address] [place], [place] [id number] Comprehensive metabolic 2000 panelon 02-19-2024 Albumin BCP dye [Mass/Vol] 3.2 g/dL Low 3.4-5.0 [facility] Comment on above: Performed By: #### 2 4323-8 ####IRVIN MUNGUIA ([id number])[facility] ([facility])[address] [place] [address] 18429 ALP [Catalytic activity/Vol] 204 U/L High 33-110 [facility] Comment on above: Performed By: #### 2 4323-8 ####IRVIN MUNGUIA ([id number])[facility] ([facility])[address] [place] [address] 44111 ALT With P-5'-P [Catalytic activity/Vol] 39 U/L Normal 7-45 [facility] Comment on above: Result Comment: Evelyn ents treated with Sulfasalazine may generate falsely decreased results for ALT. Performed By: #### 2 4323-8 ####IRVIN MUNGUIA ([id number])[facility] [place] [address] Anion gap [Moles/Vol] 11 mmol/L Normal 10-20 [facility] Comment on above: Performed By: #### 2 4323-8 ####IRVIN MUNGUIA ([id number])[facility] ([facility])[address] [place] [address] 92729 AST With P-5'-P [Catalytic activity/Vol] 32 U/L Normal 9-39 [facility] Comment on above: Performed By: #### 2 4323-8 ####IRVIN MUNGUIA ([id number])[facility])[address] [place] [address] 36705 Bilirubin [Mass/Vol] 0.3 mg/dL Normal 0.0-1.2 [facility] Comment on above: Performed By: #### 2 4323-8 ####IRVIN MUNUGIA ([id number])[facility])[address] [place] [address] 33659 Calcium [Mass/Vol] 8.0 mg/dL Low 8.6-10.3 [facility] Comment on above: Performed By: #### 2 4323-8 ####IRVIN MUNGUIA ([id number])[facility])[address] [place] [address] 60116 Chloride [Moles/Vol] 104 mmol/L Normal 98-107 [facility] Comment on above: Performed By: #### 2 4323-8 ####IRVIN MUNGUIA ([id number])[facility])[address] [place] [address] 15875 CO2 [Moles/Vol] 24 mmol/L Normal 21-32 [facility] Comment on above: Performed By: #### 2 4323-8 ####IRVIN MUNGUIA ([id number])[facility])[address] [place] [address] 36316 Creatinine [Mass/Vol] 0.57 mg/dL Normal 0.50-1.05 [facility] Comment on above: Performed By: #### 2 4323-8 ####IRVIN MUNGUIA ([id number])[facility])[address] [place] [address] 75979 GFR/1.73 sq M.predicted MDRD (S/P/Bld) [Vol rate/Area] mL/min/{1.73_m2} Normal >60 [facility] Comment on above: Result Comment: Calc ulations of estimated GFR are performed using the 2020 CKD-EPI Study Refit equation without the race variable for the IDMS-Traceable creatinine methods.https://jasn.asnjournals.org/content/early/ N.9810543168 Performed By: #### 2 4323-8 ####IRVIN MUNGUIA ([id number])[facility])[address] [place] [address] 45570 Glucose [Mass/Vol] 137 mg/dL High 74-99 [facility] Comment on above: Performed By: #### 2 4323-8 ####IRVIN MUNGUIA ([id number])[facility])[address] [place] [address] 49085 Potassium [Moles/Vol] 3.3 mmol/L Low 3.5-5.3 [facility] Comment on above: Performed By: #### 2 4323-8 ####IRVIN MUNGUIA ([id number])[facility])[address] [place] [address] 73283 Protein [Mass/Vol] 6.3 g/dL Low 6.4-8.2 [facility] Comment on above: Performed By: #### 2 4323-8 ####IRVIN MUNGUIA ([id number])[facility])[address] [place] [address] 18211 Sodium [Moles/Vol] 136 mmol/L Normal 136-145 [facility] Comment on above: Performed By: #### 2 4323-8 ####IRVIN MUNGUIA ([id number])[facility])[address] [place] [address] 93151 Urea nitrogen [Mass/Vol] 8 mg/dL Normal 6-23 [facility] Comment on above: Performed By: #### 2 4323-8 ####IRVIN MUNGUIA ([id number])[facility])[address] [place] [address] 16362 ESR Westergren method (Bld) [Velocity]on 02-19-2024 ESR (Bld) [Velocity] 63 mm/h High 0-20 [facility] Comment on above: Performed By: #### 4 537-7 ####IRVIN MUNGUIA ([id number])[facility])[address] [place] [address] 66195 Glucose Test strip manual (B ld) [Mass/Vol]on 02-19-2024 Glucose [Mass/Vol] 135 mg/dL High 7499 [facility] Comment on above: Performed By: #### 2 341-6 ####IRVIN MUNGUIA ([id number])[facility])[address] [place] [address] 14197 Glucose [Mass/Vol] 185 mg/dL High [address] Comment on above: Performed By: #### 2 341-6 ####IRVIN MUNGUIA ([id number])[facility])[address] [place] [address] 45352 Glucose [Mass/Vol] 143 mg/dL High 7499 [facility] Comment on above: Performed By: #### 2 341-6 ####IRVIN MUNGUIA ([id number])[facility])[address] [place] [address] 22668 Glucose [Mass/Vol] 119 mg/dL High [address] Comment on above: Performed By: #### 2 341-6 ####IRVIN MUNGUIA ([id number])[facility])[address] [place] [address] 33866 Triacylglycerol lipaseon Lipase [Catalytic activity/Vol] 27 U/L Normal 9-82 [facility] Comment on above: Order Comment: Venip uncture immediately after or during the administration of Metamizole may lead to falsely low results. Testing should be performed immediately prior to Metamizole dosing. Performed By: #### 3 040-3 ####IRVIN MUNGUIA ([id number])[facility])[address] [place] [address] Glucose Test strip manual (B ld) [Mass/Vol]on 02-18-2024 Glucose [Mass/Vol] 151 mg/dL High [address] [place] [address] Comment on above: Performed By: #### 2 341-6 ####IRVIN MUNGUIA ([id number])[facility])[address] [place] [address] Glucose [Mass/Vol] 126 mg/dL High [address] [place] [address] Comment on above: Performed By: #### 2 341-6 ####IRVIN MUNGUIA ([id number])[facility])[address] [place] [address] 53293 Glucose [Mass/Vol] 163 mg/dL High [address] [place] [address] Comment on above: Performed By: #### 2 341-6 ####IRVIN MUNGUIA ([id number])[facility])[address] [place] [address] 12372 Glucose [Mass/Vol] 145 mg/dL High [address] [place] [address] Comment on above: Performed By: #### 2 341-6 ####IRVIN MUNGUIA ([id number])[facility])[address] [place] [address] 22510 Amylaseon 02-17-2024 Amylase [Catalytic activity/Vol] 12 U/L Low 29-103 [facility] Comment on above: Performed By: #### 1 798-8 ####IRVIN MUNGUIA ([id number])[facility])[address] [place] [address] 96618 CBC panel Auto (Bld)on 02-16 Erythrocyte distribution width (RBC) [Ratio] 13.7 % Normal 11.5-14.5 [facility] Comment on above: Performed By: #### 5 8410-2 ####IRVIN MUNGUIA ([id number])[facility])[address] [place] [address] 96006 Hematocrit (Bld) [Volume fraction] 32.0 % Low 36.0-46.0 [facility] Comment on above: Performed By: #### 5 8410-2 ####IRVIN MUNGUIA ([id number])[facility])[address] [place] [address] Hemoglobin (Bld) [Mass/Vol] 9.7 g/dL Low 12.0-16.0 [facility] Comment on above: Performed By: #### 5 8410-2 ####IRVIN MUNGUIA ([id number])[facility])[address] [place] [address] 89875 MCH (RBC) [Entitic mass] 27.6 pg Normal 26.0-34.0 [facility] Comment on above: Performed By: #### 5 8410-2 ####IRVIN MUNGUIA ([id number])[facility])[address] [place] [address] 15607 MCHC (RBC) [Mass/Vol] 30.3 g/dL Low 32.0-36.0 [facility] Comment on above: Performed By: #### 5 8410-2 ####IRVIN MUNGUIA ([id number])[facility])[address] [place] [address] 41674 MCV (RBC) [Entitic vol] 91 fL Normal 80-100 [facility] Comment on above: Performed By: #### 5 8410-2 ####IRVIN MUNGUIA ([id number])[facility])[address] [place] [address] 29363 Nucleated RBC/100 WBC (Bld) [Ratio] 0.0 /100 WBCs Normal 0.0-0.0 [facility] Comment on above: Performed By: #### 5 8410-2 ####IRVIN MUNGUIA ([id number])[facility])[address] [place] [address] 86741 Platelets (Bld) [#/Vol] 267 x10*3/uL Normal 150-450 [facility] Comment on above: Performed By: #### 5 8410-2 ####IRVIN MUNGUIA ([id number])[facility])[address] [place] [address] RBC (Bld) [#/Vol] 3.51 x10*6/uL Low 4.00-5.20 [facility] Comment on above: Performed By: #### 5 8410-2 ####IRVIN MUNGUIA ([id number])[facility])[address] [place] [address] WBC (Bld) [#/Vol] 7.1 x10*3/uL Normal 4.4-11.3 [facility] Comment on above: Performed By: #### 5 8410-2 ####IRVIN MUNGUIA ([id number])[facility])[address] [place] [address] Comprehensive metabolic 2000 panelon 02-17-2024 Albumin BCP dye [Mass/Vol] 3.3 g/dL Low 3.4-5.0 [facility] Comment on above: Performed By: #### 2 4323-8 ####IRVIN MUNGUIA ([id number])[facility])[address] [place] [address] 17772 ALP [Catalytic activity/Vol] 197 U/L High 33-110 [facility] Comment on above: Performed By: #### 2 4323-8 ####IRVIN MUNGUIA ([id number])[facility])[address] [place] [address] 70992 ALT With P-5'-P [Catalytic activity/Vol] 43 U/L Normal 7-45 [facility] Comment on above: Result Comment: Evelyn ents treated with Sulfasalazine may generate falsely decreased results for ALT. Performed By: #### 2 4323-8 ####IRVIN MUNGUIA ([id number])[facility])[address] [place] [address] 17343 Anion gap [Moles/Vol] 10 mmol/L Normal 10-20 [facility] Comment on above: Performed By: #### 2 4323-8 ####IRVIN MUNGUIA ([id number])[facility])[address] [place] [address] 04452 AST With P-5'-P [Catalytic activity/Vol] 56 U/L High 9-39 [facility] Comment on above: Performed By: #### 2 432-8 ####IRVIN MUNGUIA ([id number])[facility])[address] [place] [address] 97760 Bilirubin [Mass/Vol] 0.3 mg/dL Normal 0.0-1.2 [facility] Comment on above: Performed By: #### 2 432-8 ####IRVIN MUNGUIA ([id number])[facility])[address] [place] [address] 25814 Calcium [Mass/Vol] 8.4 mg/dL Low 8.6-10.3 [facility] Comment on above: Performed By: #### 2 4323-8 ####IRVIN MUNGUIA ([id number])[facility])[address] [place] [address] 41857 Chloride [Moles/Vol] 104 mmol/L Normal 98-107 [facility] Comment on above: Performed By: #### 2 4323-8 ####IRVIN MUNGUIA ([id number])[facility])[address] [place] [address] 63406 CO2 [Moles/Vol] 26 mmol/L Normal 21-32 [facility] Comment on above: Performed By: #### 2 4323-8 ####IRVIN MUNGUIA ([id number])[facility])[address] [place] [address] 27408 Creatinine [Mass/Vol] 0.59 mg/dL Normal 0.50-1.05 [facility] Comment on above: Performed By: #### 2 4323-8 ####IRVIN MUNGUIA ([id number])[facility])[address] [place] [address] 79244 GFR/1.73 sq M.predicted MDRD (S/P/Bld) [Vol rate/Area] mL/min/{1.73_m2} Normal >60 [facility] Comment on above: Result Comment: Calc ulations of estimated GFR are performed using the 2020 CKD-EPI Study Refit equation without the race variable for the IDMS-Traceable creatinine methods.https://jasn.asnjournals.org/content/early/ N.8988015843 Performed By: #### 2 4323-8 ####IRVIN MUNGUIA ([id number])[facility])[address] [place] [address] 86892 Glucose [Mass/Vol] 129 mg/dL High 74-99 [facility] Comment on above: Performed By: #### 2 4323-8 ####IRVIN MUNGUIA ([id number])[facility])[address] [place] [address] 59747 Potassium [Moles/Vol] 4.0 mmol/L Normal 3.5-5.3 [facility] Comment on above: Performed By: #### 2 4323-8 ####IRVIN MUNGUIA ([id number])[facility])[address] [place] [address] 23043 Protein [Mass/Vol] 6.6 g/dL Normal 6.4-8.2 [facility] Comment on above: Performed By: #### 2 4323-8 ####IRVIN MUNGUIA ([id number])[facility])[address] [place] [address] 73666 Sodium [Moles/Vol] 136 mmol/L Normal 136-145 [facility] Comment on above: Performed By: #### 2 4323-8 ####IRVIN MUNGUIA ([id number])[facility])[address] [place] [address] 40011 Urea nitrogen [Mass/Vol] 10 mg/dL Normal 03-11 [facility] Comment on above: Performed By: #### 2 4323-8 ####IRVIN MUNGUIA ([id number])[facility])[address] [place] [address] 37681 Glucose Test strip manual (B ld) [Mass/Vol]on 02-17-2024 Glucose [Mass/Vol] 147 mg/dL High [address] [place] [address] Comment on above: Performed By: #### 2 341-6 ####IRVIN MUNGUIA ([id number])[facility])[address] [place] [address] 88552 Glucose [Mass/Vol] 125 mg/dL High [address] [place] [address] Comment on above: Performed By: #### 2 341-6 ####IRVIN MUNGUIA ([id number])[facility])[address] [place] [address] 78522 Glucose [Mass/Vol] 147 mg/dL High [address] [place] [address] Comment on above: Performed By: #### 2 341-6 ####IRVIN MUNGUIA ([id number])[facility])[address] [place] [address] 62031 Glucose [Mass/Vol] 119 mg/dL High [facility]99 [facility] Comment on above: Performed By: #### 2 341-6 ####IRVIN MUNGUIA ([id number])[facility])[address] [place] [address] 24946 Glucose [Mass/Vol] 148 mg/dL High [address] [place] [address] Comment on above: Performed By: #### 2 341-6 ####IRVIN MUNGUIA ([id number])[facility])[address] [place] [address] 05677 Triacylglycerol lipaseon Lipase [Catalytic activity/Vol] 12 U/L Normal 9-82 [facility] Comment on above: Order Comment: Venip uncture immediately after or during the administration of Metamizole may lead to falsely low results. Testing should be performed immediately prior to Metamizole dosing. Performed By: #### 3 040-3 ####IRVIN MUNGUIA ([id number])[facility])[address] [place] [address] 92321 Basic metabolic 2000 panelon 02-16-2024 Anion gap [Moles/Vol] 13 mmol/L Normal 10-20 [facility] Comment on above: Performed By: #### 2 4321-2 ####IRVIN MUNGUIA ([id number])[facility])[address] [place] [address] 78220 Calcium [Mass/Vol] 8.5 mg/dL Low 8.6-10.3 [facility] Comment on above: Performed By: #### 2 4321-2 ####IRVIN MUNGUIA ([id number])[facility])[address] [place] [address] 10102 Chloride [Moles/Vol] 99 mmol/L Normal 98-107 [facility] Comment on above: Performed By: #### 2 4321-2 ####IRVIN MUNGUIA ([id number])[facility])[address] [place] [address] 99948 CO2 [Moles/Vol] 26 mmol/L Normal 21-32 [facility] Comment on above: Performed By: #### 2 4321-2 ####IRVIN MUNGUIA ([id number])[facility])[address] [place] [address] 65212 Creatinine [Mass/Vol] 0.69 mg/dL Normal 0.50-1.05 [facility] Comment on above: Performed By: #### 2 4321-2 ####IRVIN MUNGUIA ([id number])[facility])[address] [place] [address] 41715 GFR/1.73 sq M.predicted MDRD (S/P/Bld) [Vol rate/Area] mL/min/{1.73_m2} Normal >60 [facility] Comment on above: Result Comment: Calc ulations of estimated GFR are performed using the 2020 CKD-EPI Study Refit equation without the race variable for the IDMS-Traceable creatinine methods.https://jasn.asnjournals.org/content/early/ N.3651065701 Performed By: #### 2 4321-2 ####IRVIN MUNGUIA ([id number])[facility])[address] [place] [address] 43019 Glucose [Mass/Vol] 160 mg/dL High 74-99 [facility] Comment on above: Performed By: #### 2 4321-2 ####IRVIN MUNGUIA ([id number])[facility])[address] [place] [address] 48658 Potassium [Moles/Vol] 3.9 mmol/L Normal 3.5-5.3 [facility] Comment on above: Performed By: #### 2 4321-2 ####IRVIN MUNGUIA ([id number])[facility])[address] [place] [address] 79448 Sodium [Moles/Vol] 134 mmol/L Low 136-145 [facility] Comment on above: Performed By: #### 2 4321-2 ####IRVIN MUNGUIA ([id number])[facility])[address] [place] [address] 09987 Urea nitrogen [Mass/Vol] 10 mg/dL Normal 6-23 [facility] Comment on above: Performed By: #### 2 4321-2 ####IRVIN MUNGUIA ([id number])[facility] [place] [address] 88676 CBC W Auto Differential pane l (Bld)on 02-16-2024 Basophils (Bld) [#/Vol] 0.06 x10*3/uL Normal 0.00-0.10 [facility] Comment on above: Performed By: #### 5 7021-8 ####IRVIN MUNGUIA ([id number])[facility])[address] [place] [address] 43128 Basophils/100 WBC (Bld) 0.6 % Normal 0.0-2.0 [facility] Comment on above: Performed By: #### 7021-8 ####IRVIN MUNGUIA ([id number])[facility])[address] [place] [address] 26810 Eosinophils (Bld) [#/Vol] 0.10 x10*3/uL Normal 0.00-0.70 [facility] Comment on above: Performed By: #### 7021-8 ####IRVIN MUNGUIA ([id number])[facility])[address] [place] [address] 37996 Eosinophils/100 WBC (Bld) 1.0 % Normal 0.0-6.0 [facility] Comment on above: Performed By: #### 7021-8 ####IRVIN MUNGUIA ([id number])[facility] [place] [address] 57135 Erythrocyte distribution width (RBC) [Ratio] 13.9 % Normal 11.5-14.5 [facility] Comment on above: Performed By: #### 5 7021-8 ####IRVIN MUNGUIA ([id number])[facility] [place] [address] 51885 Hematocrit (Bld) [Volume fraction] 33.5 % Low 36.0-46.0 [facility] Comment on above: Performed By: #### 7021-8 ####IRVIN MUNGUIA ([id number])[facility] [place] [address] 44060 Hemoglobin (Bld) [Mass/Vol] 10.5 g/dL Low 12.0-16.0 [facility] Comment on above: Performed By: #### 7021-8 ####IRVIN MUNGUIA ([id number])[facility] [place] [address] 77820 Immature granulocytes (Bld) [#/Vol] 0.05 x10*3/uL Normal 0.00-0.70 [facility] Comment on above: Performed By: #### 5 7021-8 ####IRVIN MUNGUIA ([id number])[facility] [place] [address] 79585 Immature granulocytes/100 WBC (Bld) 0.5 % Normal 0.0-0.9 [facility] Comment on above: Result Comment: Debbie ture Granulocyte Count (IG) includes promyelocytes, myelocytes and metamyelocytes but does not include bands. Percent differential counts (%) should be interpreted in the context of the absolute cell counts (cells/UL). Performed By: #### 5 7021-8 ####IRVIN MUNGUIA ([id number])[facility])[address] [place] [address] 66322 Lymphocytes (Bld) [#/Vol] 1.32 x10*3/uL Normal 1.20-4.80 [facility] Comment on above: Performed By: #### 5 7021-8 ####IRVIN MUNGUIA ([id number])[facility] [place] [address] 24277 Lymphocytes/100 WBC (Bld) 12.9 % Normal 13.0-44.0 [facility] Comment on above: Performed By: #### 5 7021-8 ####IRVIN MUNGUIA ([id number])[facility] [place] [address] 03145 MCH (RBC) [Entitic mass] 28.0 pg Normal 26.0-34.0 [facility] Comment on above: Performed By: #### 5 7021-8 ####IRVIN MUNGUIA ([id number])[facility] [place] [address] 28655 MCHC (RBC) [Mass/Vol] 31.3 g/dL Low 32.0-36.0 [facility] Comment on above: Performed By: #### 5 7021-8 ####IRVIN MUNGUIA ([id number])[facility])[address] [place] [address] 06035 MCV (RBC) [Entitic vol] 89 fL Normal 80-100 [facility] Comment on above: Performed By: #### 5 7021-8 ####IRVIN MUNGUIA ([id number])[facility])[address] [place] [address] 59763 Monocytes (Bld) [#/Vol] 0.74 x10*3/uL Normal 0.10-1.00 [facility] Comment on above: Performed By: #### 5 7021-8 ####IRVIN MUNGUIA ([id number])[facility])[address] [place] [address] 89048 Monocytes/100 WBC (Bld) 7.2 % Normal 2.0-10.0 [facility] Comment on above: Performed By: #### 5 7021-8 ####IRVIN MUNGUIA ([id number])[facility])[address] [place] [address] 04338 Neutrophils (Bld) [#/Vol] 7.97 x10*3/uL High 1.20-7.70 [facility] Comment on above: Result Comment: Perc ent differential counts (%) should be interpreted in the context of the absolute cell counts (cells/uL). Performed By: #### 5 7021-8 ####IRVIN MUNGUIA ([id number])[facility])[address] [place] [address] 36396 Neutrophils/100 WBC (Bld) 77.8 % Normal 40.0-80.0 [facility] Comment on above: Performed By: #### 5 7021-8 ####IRVIN MUNGUIA ([id number])[facility])[address] [place] [address] 65783 Nucleated RBC/100 WBC (Bld) [Ratio] 0.0 /100 WBCs Normal 0.0-0.0 [facility] Comment on above: Performed By: #### 5 7021-8 ####IRVIN MUNGUIA ([id number])[facility])[address] [place] [address] 25744 Platelets (Bld) [#/Vol] 261 x10*3/uL Normal 150-450 [facility] Comment on above: Performed By: #### 5 7021-8 ####IRVIN MUNGUIA ([id number])[facility])[address] [place] [address] 67584 RBC (Bld) [#/Vol] 3.75 x10*6/uL Low 4.00-5.20 [facility] Comment on above: Performed By: #### 5 7021-8 ####IRVIN MUNGUIA ([id number])[facility])[address] [place] [address] 59456 WBC (Bld) [#/Vol] 10.2 x10*3/uL Normal 4.4-11.3 [facility] Comment on above: Performed By: #### 5 7021-8 ####IRVIN MUNGUIA ([id number])[facility] [facility] [place], [place] [id number] Glucose Test strip manual (B ld) [Mass/Vol]on 02-16-2024 Glucose [Mass/Vol] 142 mg/dL High 74-99 [facility] Comment on above: Performed By: #### 2 341-6 ####IRVIN MUNGUIA ([id number])[facility] ([facility])[address] [place], [place] [address] Glucose [Mass/Vol] 128 mg/dL High 74-99 [facility] Comment on above: Performed By: #### 2 341-6 ####IRVIN MUNGUIA ([id number])[facility] ([facility])[address] [place], [place] [address] Lactateon 02-16-2024 Lactate [Moles/Vol] 0.9 mmol/L Normal 0.4-2.0 [facility] Comment on above: Order Comment: Venip uncture immediately after or during the administration of Metamizole may lead to falsely low results. Testing should be performed immediatelyprior to Metamizole dosing. Performed By: #### 2 524-7 ####IRVIN MUNGUIA ([id number])[facility] ([facility])[address] [place] [address] Magnesiumon 02-16-2024 Magnesium [Mass/Vol] 1.81 mg/dL Normal 1.60-2.40 [facility] Comment on above: Performed By: #### 1 9123-9 ####IRVIN MUNGUIA ([id number])[facility] ([facility])[address] [place] [address] Urinalysis complete W Reflex Culture panel (U)on 02-16-2024 Appearance (U) Clear Normal Clear [facility] Comment on above: Performed By: #### 5 8077-9 ####IRVIN MUNGUIA ([id number])[facility])[address] [place] [address] Bilirubin (U) [Mass/Vol] Negative Normal NEGATIVE [facility] Comment on above: Performed By: #### 5 8077-9 ####IRVIN MUNGUIA ([id number])[facility])[address] [place] [address] Color (U) Straw Normal Straw, Yellow [facility] Comment on above: Performed By: #### 5 8077-9 ####IRVIN MUNGUIA ([id number])[facility])[address] [place] [address] Glucose Auto test strip (U) [Mass/Vol] Negative Normal NEGATIVE [facility] Comment on above: Performed By: #### 5 8077-9 ####IRVIN MUNGUIA ([id number])[facility])[address] [place] [address] Ketones (U) [Mass/Vol] Negative Normal NEGATIVE [facility] Comment on above: Performed By: #### 5 8077-9 ####IRVIN MUNGUIA ([id number])[facility])[address] [place] [address] Leukocyte esterase Auto test strip Ql (U) Negative Normal NEGATIVE [facility] Comment on above: Performed By: #### 5 8077-9 ####IRVIN MUNGUIA ([id number])[facility])[address] [place] [address] 12880 Nitrite Auto test strip Ql (U) Negative Normal NEGATIVE [facility] Comment on above: Performed By: #### 5 8077-9 ####IRVIN MUNGUIA ([id number])[facility] ([facility])[address] [place] [address] pH (U) 7.0 [pH] Normal 5.0, 5.5, 6.0, 6.5, 7.0, 7.5, 8.0 [facility] Comment on above: Performed By: #### 5 8077-9 ####IRVIN MUNGUIA ([id number])[facility] ([place] [address] Protein (U) [Mass/Vol] Negative Normal NEGATIVE [facility] Comment on above: Performed By: #### 5 8077-9 ####IRVIN MUNGUIA ([id number])[facility])[address] [place] [address] RBC (U) [#/Vol] Negative Normal NEGATIVE [facility] Comment on above: Performed By: #### 5 8077-9 ####IRVIN MUNGUIA ([id number])[facility])[address] [place], [place] [address] Specific gravity (U) [Rel density] 1.028 Normal 1.005-1.035 [facility] Comment on above: Performed By: #### 5 8077-9 ####IRVIN MUNGUIA ([id number])[facility])[address] [place] [address] 06248 Urobilinogen (U) [Mass/Vol] mg/dL Normal <2.0 [facility] Comment on above: Performed By: #### 5 8077-9 ####IRVIN MUNGUIA ([id number])[facility])[address] [place] [address] 83988 Bacteria identifiedon 2023 Bacteria identified Cx Nom (Bld) Normal [facility] Comment on above: Performed By: #### 6 00-7 ####ANDI Cotter ([id number])[facility] ([facility])[address] [place] [address] 35931 Bacteria identified Cx Nom (Bld) Normal [facility] Comment on above: Performed By: #### 6 00-7 ####ANDI Cotter ([id number])[facility] ([facility])[address] [place] [address] 60624 CBC W Auto Differential pane l (Bld)on 02-15-2024 Basophils (Bld) [#/Vol] 0.04 x10*3/uL Normal 0.00-0.10 [facility] Comment on above: Performed By: #### 5 7021-8 ####IRVIN MUNGUIA ([id number])[facility])[address] [place] [address] 41386 Basophils/100 WBC (Bld) 0.3 % Normal 0.0-2.0 [facility] Comment on above: Performed By: #### 5 7021-8 ####IRVIN MUNGUIA ([id number])[facility])[address] [place] [address] 23633 Eosinophils (Bld) [#/Vol] 0.08 x10*3/uL Normal 0.00-0.70 [facility] Comment on above: Performed By: #### 5 7021-8 ####IRVIN MUNGUIA ([id number])[facility])[address] [place] [address] 22008 Eosinophils/100 WBC (Bld) 0.6 % Normal 0.0-6.0 [facility] Comment on above: Performed By: #### 5 7021-8 ####IRVIN MUNGUIA ([id number])[facility])[address] [place] [address] 09938 Erythrocyte distribution width (RBC) [Ratio] 13.9 % Normal 11.5-14.5 [facility] Comment on above: Performed By: #### 5 7021-8 ####IRVIN MUNGUIA ([id number])[facility])[address] [place] [address] 78952 Hematocrit (Bld) [Volume fraction] 33.9 % Low 36.0-46.0 [facility] Comment on above: Performed By: #### 5 7021-8 ####IRVIN MUNGUIA ([id number])[facility])[address] [place] [address] 60220 Hemoglobin (Bld) [Mass/Vol] 10.6 g/dL Low 12.0-16.0 [facility] Comment on above: Performed By: #### 5 7021-8 ####IRVIN MUNGUIA ([id number])[facility])[address] [place] [address] 18794 Immature granulocytes (Bld) [#/Vol] 0.06 x10*3/uL Normal 0.00-0.70 [facility] Comment on above: Performed By: #### 5 7021-8 ####IRVIN MUNGUIA ([id number])[facility])[address] [place] [address] 50403 Immature granulocytes/100 WBC (Bld) 0.5 % Normal 0.0-0.9 [facility] Comment on above: Result Comment: Debbie ture Granulocyte Count (IG) includes promyelocytes, myelocytes and metamyelocytes but does not include bands. Percent differential counts (%) should be interpreted in the context of the absolute cell counts (cells/UL). Performed By: #### 5 7021-8 ####IRVIN MUNGUIA ([id number])[facility] ([facility])[address] [place] [address] 03051 Lymphocytes (Bld) [#/Vol] 2.16 x10*3/uL Normal 1.20-4.80 [facility] Comment on above: Performed By: #### 5 7021-8 ####IRVIN MUNGUIA ([id number])[facility])[address] [place] [address] 63560 Lymphocytes/100 WBC (Bld) 17.0 % Normal 13.0-44.0 [facility] Comment on above: Performed By: #### 5 7021-8 ####IRVIN MUNGUIA ([id number])[facility])[address] [place] [address] 42646 MCH (RBC) [Entitic mass] 27.8 pg Normal 26.0-34.0 [facility] Comment on above: Performed By: #### 5 7021-8 ####IRVIN MUNGUIA ([id number])[facility])[address] [place] [address] 43636 MCHC (RBC) [Mass/Vol] 31.3 g/dL Low 32.0-36.0 [facility] Comment on above: Performed By: #### 5 7021-8 ####IRVIN MUNGUIA ([id number])[facility])[address] [place] [address] 51693 MCV (RBC) [Entitic vol] 89 fL Normal 80-100 [facility] Comment on above: Performed By: #### 5 7021-8 ####IRVIN MUNGUIA ([id number])[facility])[address] [place] [address] 76811 Monocytes (Bld) [#/Vol] 0.82 x10*3/uL Normal 0.10-1.00 [facility] Comment on above: Performed By: #### 5 7021-8 ####IRVIN MUNGUIA ([id number])[facility])[address] [place] [address] 20007 Monocytes/100 WBC (Bld) 6.4 % Normal 2.0-10.0 [facility] Comment on above: Performed By: #### 5 7021-8 ####IRVIN MUNGUIA ([id number])[facility])[address] [place] [address] 48041 Neutrophils (Bld) [#/Vol] 9.58 x10*3/uL High 1.20-7.70 [facility] Comment on above: Result Comment: Perc ent differential counts (%) should be interpreted in the context of the absolute cell counts (cells/uL). Performed By: #### 5 7021-8 ####IRVIN MUNGUIA ([id number])[facility] ([facility])[address] [place] [address] 05536 Neutrophils/100 WBC (Bld) 75.2 % Normal 40.0-80.0 [facility] Comment on above: Performed By: #### 5 7021-8 ####IRVIN MUNGUIA ([id number])[facility] ([facility])[address] [place] [address] 94655 Nucleated RBC/100 WBC (Bld) [Ratio] 0.0 /100 WBCs Normal 0.0-0.0 [facility] Comment on above: Performed By: #### 5 7021-8 ####IRVIN MUNGUIA ([id number])[facility] ([facility])[address] [place] [address] 06221 Platelets (Bld) [#/Vol] 291 x10*3/uL Normal 150-450 [facility] Comment on above: Performed By: #### 5 7021-8 ####IRVIN MUNGUIA ([id number])[facility] ([facility])[address] [place] [address] 37754 RBC (Bld) [#/Vol] 3.81 x10*6/uL Low 4.00-5.20 [facility] Comment on above: Performed By: #### 5 7021-8 ####IRVIN MUNGUIA ([id number])[facility] ([facility])[address] [place] [address] 22504 WBC (Bld) [#/Vol] 12.7 x10*3/uL High 4.4-11.3 [facility] Comment on above: Performed By: #### 5 7021-8 ####IRVIN MUNGUIA ([id number])[facility])[address] [place] [address] ABDOMEN PELVIS W IV CONTR Reny 02-15-2024 CT ABDOMEN PELVIS W IV CONTRAST Normal [facility] Comprehensive metabolic 2000 panelon 02-15-2024 Albumin BCP dye [Mass/Vol] 3.6 g/dL Normal 3.4-5.0 [facility] Comment on above: Performed By: #### 2 4323-8 ####IRVIN MUNGUIA ([id number])[facility] [place] [address] ALP [Catalytic activity/Vol] 163 U/L High 33-110 [facility] Comment on above: Performed By: #### 2 4323-8 ####IRVIN MUNGUIA ([id number])[facility])[address] [place] [address] 42603 ALT With P-5'-P [Catalytic activity/Vol] 26 U/L Normal 7-45 [facility] Comment on above: Result Comment: Evelyn ents treated with Sulfasalazine may generate falsely decreased results for ALT. Performed By: #### 2 4323-8 ####IRVIN MUNGUIA ([id number])[facility])[address] [place] [address] 14860 Anion gap [Moles/Vol] 15 mmol/L Normal 10-20 [facility] Comment on above: Performed By: #### 2 4323-8 ####IRVIN MUNGUIA ([id number])[facility])[address] [place] [address] 57360 AST With P-5'-P [Catalytic activity/Vol] 17 U/L Normal 9-39 [facility] Comment on above: Performed By: #### 2 4323-8 ####IRVIN MUNGUIA ([id number])[facility] [place] [address] Bilirubin [Mass/Vol] 0.2 mg/dL Normal 0.0-1.2 [facility] Comment on above: Performed By: #### 2 4323-8 ####IRVIN MUNGUIA ([id number])[facility])[address] [place] [address] 45740 Calcium [Mass/Vol] 8.6 mg/dL Normal 8.6-10.3 [facility] Comment on above: Performed By: #### 2 4323-8 ####IRVIN MUNGUIA ([id number])[facility])[address] [place] [address] 74571 Chloride [Moles/Vol] 96 mmol/L Low 98-107 [facility] Comment on above: Performed By: #### 2 4323-8 ####IRVIN MUNGUIA ([id number])[facility])[address] [place] [address] 03497 CO2 [Moles/Vol] 25 mmol/L Normal 21-32 [facility] Comment on above: Performed By: #### 2 4323-8 ####IRVIN MUNGUIA ([id number])[facility])[address] [place] [address] 68859 Creatinine [Mass/Vol] 0.68 mg/dL Normal 0.50-1.05 [facility] Comment on above: Performed By: #### 2 4323-8 ####IRVIN MUNGUIA ([id number])[facility] ([facility])[address] [place] [address] 19574 GFR/1.73 sq M.predicted MDRD (S/P/Bld) [Vol rate/Area] mL/min/{1.73_m2} Normal >60 [facility] Comment on above: Result Comment: Calc ulations of estimated GFR are performed using the 2020 CKD-EPI Study Refit equation without the race variable for the IDMS-Traceable creatinine methods.https://jasn.asnjournals.org/content/early// N.5217533701 Performed By: #### 2 4323-8 ####IRVIN MUNGUIA ([id number])[facility] ([facility])[address] [place] [address] 18964 Glucose [Mass/Vol] 166 mg/dL High 74-99 [facility] Comment on above: Performed By: #### 2 4323-8 ####IRVIN MUNGUIA ([id number])[facility] ([facility])[address] [place] [address] 94792 Potassium [Moles/Vol] 3.6 mmol/L Normal 3.5-5.3 [facility] Comment on above: Performed By: #### 2 4323-8 ####IRVIN MUNGUIA ([id number])[facility])[address] [place] [address] 01806 Protein [Mass/Vol] 7.2 g/dL Normal 6.4-8.2 [facility] Comment on above: Performed By: #### 2 4323-8 ####IRVIN MUNGUIA ([id number])[facility])[address] [place] [address] 92002 Sodium [Moles/Vol] 132 mmol/L Low 136-145 [facility] Comment on above: Performed By: #### 2 4323-8 ####IRVIN MUNGUIA ([id number])[facility])[address] [place] [address] 37849 Urea nitrogen [Mass/Vol] 12 mg/dL Normal 6- [facility] Comment on above: Performed By: #### 2 4323-8 ####IRVIN MUNGUIA ([id number])[facility])[address] [place] [address] 82351 ECG 12-LEADon 02-15-2024 ECG 12-LEAD Ventricular Rate 102 Atrial Rate 102 P-R Interval 140 QRS Duration 84 Q-T Interval 346 QTC Calculation(Bazett) 450 P [place] 52 R [place] 27 T [place] 61 QRS Count 17 Q Onset 225 P Onset 155 P Offset 209 T Offset 398 QTC Fredericia 412 Diagnosis Sinus tachycardia Otherwise normal ECG When compared with ECG of 04-FEB-2024 18:58, No significant change was found See ED provider note for full interpretation and clinical correlation Confirmed by Sally Bourgeois ([id number]) on 02/18/2024 8:59:01 PM Normal [facility] LABORATORYOrdered By: Huber Estevez on 02-15-2024 Albumin DL <= 20 mg/L (U) [Mass/Vol] 591 mcg/dL Invalid Interpretation Code AO ADM SS Albumin/Creatinine DL <= 20 mg/L (U) [Mass ratio] 8 mcg/mg Normal 0 - 30 mcg/mg AO ADM SS Creatinine (U) [Mass/Vol] 75.9 mg/dL Normal 28.0 - 117.0 mg/dL AO ADM SS Lactateon 02-15-2024 Lactate [Moles/Vol] 2.0 mmol/L Normal 0.4-2.0 [facility] Comment on above: Order Comment: Venip uncture immediately after or during the administration of Metamizole may lead to falsely low results. Testing should be performed immediatelyprior to Metamizole dosing. Performed By: #### 2 524-7 ####IRVIN MUNGUIA ([id number])[facility])[address] [place] [address] MALBRon 02-15-2024 U Creatinine 75.9 mg/dL Normal 28.0-117.0 [facility] ([place]) Comment on above: Performed By: #### A DIFF, ANEU, CMP, MG, GFR, LD, CRP, CBC, ESR #### [address] [address] U Microalb 591 mcg/dL Normal [facility] ([place]) Comment on above: Performed By: #### A DIFF, ANEU, CMP, MG, GFR, LD, CRP, CBC, ESR #### [address] [address] U Ratio Alb/Cre 8 mcg/mg Normal 0-30 [facility] ([place]) Comment on above: Performed By: #### A DIFF, ANEU, CMP, MG, GFR, LD, CRP, CBC, ESR #### [address] [address] Magnesiumon 02-15-2024 Magnesium [Mass/Vol] 1.80 mg/dL Normal 1.60-2.40 [facility] Comment on above: Performed By: #### 1 9123-9 ####IRVIN MUNGUIA ([id number])[facility] ([facility])[address] [place] [address] 98616 Triacylglycerol lipaseon Lipase [Catalytic activity/Vol] 42 U/L Normal 9-82 [facility] Comment on above: Order Comment: Venip uncture immediately after or during the administration of Metamizole may lead to falsely low results. Testing should be performed immediately prior to Metamizole dosing. Performed By: #### 3 040-3 ####BRYAN EZRA ([id number])[facility])[address] [place] [address] XR CHEST 1 VIEWon 02-15-2024 XR CHEST 1 VIEW Normal [facility] CBC W Auto Differential pane l (Bld)on 02-08-2024 Basophils (Bld) [#/Vol] 0.03 x10*3/uL Normal 0.00-0.10 [facility] Comment on above: Performed By: #### 5 7021-8 ####ANDI Cotter ([id number])[facility] ([facility])[address] [place] [address] Basophils/100 WBC (Bld) 0.4 % Normal 0.0-2.0 [facility] Comment on above: Performed By: #### 5 7021-8 ####ANDI Cotter ([id number])[facility] ([facility])[address] [place] [address] Eosinophils (Bld) [#/Vol] 0.24 x10*3/uL Normal 0.00-0.70 [facility] Comment on above: Performed By: #### 5 7021-8 ####ANDI Cotter ([id number])[facility] ([facility])[address] [place] [address] Eosinophils/100 WBC (Bld) 3.1 % Normal 0.0-6.0 [facility] Comment on above: Performed By: #### 5 7021-8 ####ANDI Cotter ([id number])[facility] ([facility])[address] [place] [address] Erythrocyte distribution width (RBC) [Ratio] 13.4 % Normal 11.5-14.5 [facility] Comment on above: Performed By: #### 5 7021-8 ####ANDI Cotter ([id number])[facility] ([facility])[address] [place] [address] 28206 Hematocrit (Bld) [Volume fraction] 29.9 % Low 36.0-46.0 [facility] Comment on above: Performed By: #### 5 7021-8 ####ANDI CHAUDHARY L ([id number])[facility] ([facility])[address] [place] [address] 65063 Hemoglobin (Bld) [Mass/Vol] 9.4 g/dL Low 12.0-16.0 [facility] Comment on above: Performed By: #### 5 7021-8 ####ANDI Cotter ([id number])[facility] ([facility])[address] [place] [address] 07066 Immature granulocytes (Bld) [#/Vol] 0.26 x10*3/uL Normal 0.00-0.70 [facility] Comment on above: Performed By: #### 5 7021-8 ####ANDI Cotter ([id number])[facility] ([facility])[address] [place] [address] 19079 Immature granulocytes/100 WBC (Bld) 3.4 % High 0.0-0.9 [facility] Comment on above: Result Comment: Debbie ture Granulocyte Count (IG) includes promyelocytes, myelocytes and metamyelocytes but does not include bands. Percent differential counts (%) should be interpreted in the context of the absolute cell counts (cells/UL). Performed By: #### 5 7021-8 ####ANDI CHAUDHARY L ([id number])[facility] ([facility])[address] [place] [address] 00978 Lymphocytes (Bld) [#/Vol] 1.63 x10*3/uL Normal 1.20-4.80 [facility] Comment on above: Performed By: #### 5 7021-8 ####ANDI Cotter ([id number])[facility] ([facility])[address] [place] [address] Lymphocytes/100 WBC (Bld) 21.3 % Normal 13.0-44.0 [facility] Comment on above: Performed By: #### 5 7021-8 ####ANDI Cotter ([id number])[facility] ([facility])[address] [place] [address] MCH (RBC) [Entitic mass] 28.3 pg Normal 26.0-34.0 [facility] Comment on above: Performed By: #### 5 7021-8 ####ANDI Cotter ([id number])[facility] ([facility])[address] [place] [address] MCHC (RBC) [Mass/Vol] 31.4 g/dL Low 32.0-36.0 [facility] Comment on above: Performed By: #### 5 7021-8 ####ANDI Cotter ([id number])[facility] ([facility])[address] [place] [address] MCV (RBC) [Entitic vol] 90 fL Normal 80-100 [facility] Comment on above: Performed By: #### 5 7021-8 ####ANDI Cotter ([id number])[facility] ([facility])[address] [place] [address] Monocytes (Bld) [#/Vol] 0.66 x10*3/uL Normal 0.10-1.00 [facility] Comment on above: Performed By: #### 5 7021-8 ####ANDI Cotter ([id number])[facility] ([facility])[address] [place] [address] Monocytes/100 WBC (Bld) 8.6 % Normal 2.0-10.0 [facility] Comment on above: Performed By: #### 5 7021-8 ####ANDI Cotter ([id number])[facility] ([facility])[address] [place] [address] Neutrophils (Bld) [#/Vol] 4.83 x10*3/uL Normal 1.20-7.70 [facility] Comment on above: Result Comment: Perc ent differential counts (%) should be interpreted in the context of the absolute cell counts (cells/uL). Performed By: #### 5 7021-8 ####ANDI Cotter ([id number])[facility] ([facility])[address] [place] [address] Neutrophils/100 WBC (Bld) 63.2 % Normal 40.0-80.0 [facility] Comment on above: Performed By: #### 5 7021-8 ####ANDI Cotter ([id number])[facility] ([facility])[address] [place] [address] Nucleated RBC/100 WBC (Bld) [Ratio] 0.0 /100 WBCs Normal 0.0-0.0 [facility] Comment on above: Performed By: #### 5 7021-8 ####ANDI Cotter ([id number])[facility] ([facility])[address] [place] [address] Platelets (Bld) [#/Vol] 329 x10*3/uL Normal 150-450 [facility] Comment on above: Performed By: #### 5 7021-8 ####ANDI Cotter ([id number])[facility] ([facility])[address] [place] [address] RBC (Bld) [#/Vol] 3.32 x10*6/uL Low 4.00-5.20 [facility] Comment on above: Performed By: #### 5 7021-8 ####ANDI Cotter ([id number])[facility] ([facility])[address] [place] [address] WBC (Bld) [#/Vol] 7.7 x10*3/uL Normal 4.4-11.3 [facility] Comment on above: Performed By: #### 5 7021-8 ####ANDI Cotter ([id number])[facility] ([facility])[address] [place] [address] Clostridioides difficile tox in A+B tcdA+tcdB geneson 02-08-2024 C. difficile toxin A+B tcdA+tcdB genes SANNA+probe Ql (Stl) Clostridioides difficile toxin A+B tcdA+tcdB genes Not Detected Normal Not Detected [facility] Comment on above: Order Comment: This test [...] Performed By: #### 8 0685-1 ####ANDI Cotter ([id number])[facility] ([facility])[address] [place] [address] Comprehensive metabolic 2000 panelon 02-08-2024 Albumin BCP dye [Mass/Vol] 3.4 g/dL Normal 3.4-5.0 [facility] Comment on above: Performed By: #### 2 4323-8 ####ANDI Cotter ([id number])[facility])[address] [place] [address] ALP [Catalytic activity/Vol] 168 U/L High 33-110 [facility] Comment on above: Performed By: #### 2 4323-8 ####ANDI Cotter ([id number])[facility])[address] [place] [address] ALT With P-5'-P [Catalytic activity/Vol] 37 U/L Normal 7-45 [facility] Comment on above: Result Comment: Evelyn ents treated with Sulfasalazine may generate falsely decreased results for ALT. Performed By: #### 2 4323-8 ####ANDI Cotter ([id number])[facility])[address] [place] [address] Anion gap [Moles/Vol] 14 mmol/L Normal 10-20 [facility] Comment on above: Performed By: #### 2 4323-8 ####ANDI Cotter ([id number])[facility])[address] [place] [address] AST With P-5'-P [Catalytic activity/Vol] 19 U/L Normal 9-39 [facility] Comment on above: Performed By: #### 2 4323-8 ####ANDI Cotter ([id number])[facility])[address] [place] [address] Bilirubin [Mass/Vol] 0.2 mg/dL Normal 0.0-1.2 [facility] Comment on above: Performed By: #### 2 4323-8 ####ANDI Cotter ([id number])[facility])[address] [place] [address] Calcium [Mass/Vol] 9.1 mg/dL Normal 8.6-10.6 [facility] Comment on above: Performed By: #### 2 4323-8 ####ANDI Cotter ([id number])[facility])[address] [place] [address] Chloride [Moles/Vol] 99 mmol/L Normal 98-107 [facility] Comment on above: Performed By: #### 2 4323-8 ####ANDI Cotter ([id number])[facility])[address] [place] [address] CO2 [Moles/Vol] 28 mmol/L Normal 21-32 [facility] Comment on above: Performed By: #### 2 4323-8 ####ANDI Cotter ([id number])[facility])[address] [place] [address] Creatinine [Mass/Vol] 0.69 mg/dL Normal 0.50-1.05 [facility] Comment on above: Performed By: #### 2 4323-8 ####ANDI Cotter ([id number])[facility])[address] [place] [address] GFR/1.73 sq M.predicted MDRD (S/P/Bld) [Vol rate/Area] mL/min/{1.73_m2} Normal >60 [facility] Comment on above: Result Comment: Calc ulations of estimated GFR are performed using the 2020 CKD-EPI Study Refit equation without the race variable for the IDMS-Traceable creatinine methods.https://jasn.asnjournals.org/content/early// N.3373433551 Performed By: #### 2 4323-8 ####ANDI Cotter ([id number])[facility])[address] [place] [address] Glucose [Mass/Vol] 160 mg/dL High 74-99 [facility] Comment on above: Performed By: #### 2 4323-8 ####ANDI Cotter ([id number])[facility])[address] [place] [address] Potassium [Moles/Vol] 3.7 mmol/L Normal 3.5-5.3 [facility] Comment on above: Performed By: #### 2 4323-8 ####ANDI Cotter ([id number])[facility])[address] [place] [address] Protein [Mass/Vol] 7.0 g/dL Normal 6.4-8.2 [facility] Comment on above: Performed By: #### 2 4323-8 ####ANDI CHAUDHARY L ([id number])[facility])[address] [place] [address] Sodium [Moles/Vol] 137 mmol/L Normal 136-145 [facility] Comment on above: Performed By: #### 2 4323-8 ####ANDI CHAUDHARY L ([id number])[facility])[address] [place] [address] Urea nitrogen [Mass/Vol] 9 mg/dL Normal 6-23 [facility] Comment on above: Performed By: #### 2 4323-8 ####ANDI Cotter ([id number])[facility])[address] [place] [address] Gastrointestinal pathogens i dentifiedon 02-08-2024 Gastrointestinal pathogens identified SANNA+probe Nom (Stl) Normal Not Detected [facility] Comment on above: Performed By: #### 7 9390-1 ####ANDI Cotter ([id number])[facility])[address] [place] [address] Glucose Test strip manual (B ld) [Mass/Vol]on 02-08-2024 Glucose [Mass/Vol] 158 mg/dL High 74-99 [facility] Comment on above: Performed By: #### 2 341-6 ####ANDI Cotter ([id number])[facility])[address] [place] [address] Glucose [Mass/Vol] 159 mg/dL High 74-99 [facility] Comment on above: Performed By: #### 2 341-6 ####ANDI Cotter ([id number])[facility])[address] [place] [address] Magnesiumon 02-08-2024 Magnesium [Mass/Vol] 1.88 mg/dL Normal 1.60-2.40 [facility] Comment on above: Performed By: #### 1 9123-9 ####ANDI Cotter ([id number])[facility])[address] [place] [address] CBC W Auto Differential pane l (Bld)on 02-07-2024 Basophils (Bld) [#/Vol] 0.07 x10*3/uL Normal 0.00-0.10 [facility] Comment on above: Performed By: #### 5 7021-8 ####ANDI Cotter ([id number])[facility])[address] [place] [address] Basophils/100 WBC (Bld) 0.6 % Normal 0.0-2.0 [facility] Comment on above: Performed By: #### 5 7021-8 ####ANDI Cotter ([id number])[facility])[address] [place] [address] Eosinophils (Bld) [#/Vol] 0.25 x10*3/uL Normal 0.00-0.70 [facility] Comment on above: Performed By: #### 5 7021-8 ####ANDI Cotter ([id number])[facility])[address] [place] [address] Eosinophils/100 WBC (Bld) 2.0 % Normal 0.0-6.0 [facility] Comment on above: Performed By: #### 5 7021-8 ####ANDI Cotter ([id number])[facility])[address] [place] [address] Erythrocyte distribution width (RBC) [Ratio] 13.5 % Normal 11.5-14.5 [facility] Comment on above: Performed By: #### 5 7021-8 ####ANDI Cotter ([id number])[facility])[address] [place] [address] Hematocrit (Bld) [Volume fraction] 30.9 % Low 36.0-46.0 [facility] Comment on above: Performed By: #### 5 7021-8 ####ANDI Cotter ([id number])[facility])[address] [place] [address] Hemoglobin (Bld) [Mass/Vol] 10.0 g/dL Low 12.0-16.0 [facility] Comment on above: Performed By: #### 5 7021-8 ####ANDI Cotter ([id number])[facility])[address] [place] [address] Immature granulocytes (Bld) [#/Vol] 0.20 x10*3/uL Normal 0.00-0.70 [facility] Comment on above: Performed By: #### 5 7021-8 ####ANDI Cotter ([id number])[facility])[address] [place] [address] Immature granulocytes/100 WBC (Bld) 1.6 % High 0.0-0.9 [facility] Comment on above: Result Comment: Debbie ture Granulocyte Count (IG) includes promyelocytes, myelocytes and metamyelocytes but does not include bands. Percent differential counts (%) should be interpreted in the context of the absolute cell counts (cells/UL). Performed By: #### 5 7021-8 ####ANDI Cotter ([id number])[facility])[address] [place] [address] Lymphocytes (Bld) [#/Vol] 1.77 x10*3/uL Normal 1.20-4.80 [facility] Comment on above: Performed By: #### 5 7021-8 ####ANDI Cotter ([id number])[facility])[address] [place] [address] Lymphocytes/100 WBC (Bld) 14.0 % Normal 13.0-44.0 [facility] Comment on above: Performed By: #### 5 7021-8 ####ANDI Cotter ([id number])[facility])[address] [place] [address] MCH (RBC) [Entitic mass] 28.3 pg Normal 26.0-34.0 [facility] Comment on above: Performed By: #### 5 7021-8 ####ANDI Cotter ([id number])[facility])[address] [place] [address] MCHC (RBC) [Mass/Vol] 32.4 g/dL Normal 32.0-36.0 [facility] Comment on above: Performed By: #### 5 7021-8 ####ANDI Cotter ([id number])[facility])[address] [place] [address] MCV (RBC) [Entitic vol] 88 fL Normal 80-100 [facility] Comment on above: Performed By: #### 5 7021-8 ####ANDI Cotter ([id number])[facility])[address] [place] [address] Monocytes (Bld) [#/Vol] 0.87 x10*3/uL Normal 0.10-1.00 [facility] Comment on above: Performed By: #### 5 7021-8 ####ANDI Cotter ([id number])[facility])[address] [place] [address] Monocytes/100 WBC (Bld) 6.9 % Normal 2.0-10.0 [facility] Comment on above: Performed By: #### 5 7021-8 ####ANDI Cotter ([id number])[facility])[address]653 [place] [address] Neutrophils (Bld) [#/Vol] 9.44 x10*3/uL High 1.20-7.70 [facility] Comment on above: Result Comment: Perc ent differential counts (%) should be interpreted in the context of the absolute cell counts (cells/uL). Performed By: #### 5 7021-8 ####ANDI Cotter ([id number])[facility])[address] [place] [address] Neutrophils/100 WBC (Bld) 74.9 % Normal 40.0-80.0 [facility] Comment on above: Performed By: #### 5 7021-8 ####ANDI Cotter ([id number])[facility])[address] [place] [address] Nucleated RBC/100 WBC (Bld) [Ratio] 0.0 /100 WBCs Normal 0.0-0.0 [facility] Comment on above: Performed By: #### 5 7021-8 ####ANDI Cotter ([id number])[facility])[address]32 [place] [address] Platelets (Bld) [#/Vol] 338 x10*3/uL Normal 150-450 [facility] Comment on above: Performed By: #### 5 7021-8 ####ANDI Cotter ([id number])[facility])[address] [place] [address] RBC (Bld) [#/Vol] 3.53 x10*6/uL Low 4.00-5.20 [facility] Comment on above: Performed By: #### 5 7021-8 ####ANDI Cotter ([id number])[facility])[address] [place] [address] WBC (Bld) [#/Vol] 12.6 x10*3/uL High 4.4-11.3 [facility] Comment on above: Performed By: #### 5 7021-8 ####ANDI Cotter ([id number])[facility])[address] [place] [address] Comprehensive metabolic 2000 panelon 02-07-2024 Albumin BCP dye [Mass/Vol] 3.5 g/dL Normal 3.4-5.0 [facility] Comment on above: Performed By: #### 2 4323-8 ####ANDI Cotter ([id number])[facility])[address] [place] [address] ALP [Catalytic activity/Vol] 181 U/L High 33-110 [facility] Comment on above: Performed By: #### 2 4323-8 ####ANDI CHAUDHARY L (50941)[facility])[address] [place] [address] ALT With P-5'-P [Catalytic activity/Vol] 46 U/L High 7-45 [facility] Comment on above: Result Comment: Evelyn ents treated with Sulfasalazine may generate falsely decreased results for ALT. Performed By: #### 2 4323-8 ####ANDI Cotter ([id number])[facility])[address] [place] [address] Anion gap [Moles/Vol] 16 mmol/L Normal 10-20 [facility] Comment on above: Performed By: #### 2 4323-8 ####ANDI Cotter ([id number])[facility])[address]683 [place] [address] AST With P-5'-P [Catalytic activity/Vol] 30 U/L Normal 9-39 [facility] Comment on above: Performed By: #### 2 4323-8 ####ANDI Cotter ([id number])[facility])[address] [place] [address] Bilirubin [Mass/Vol] 0.3 mg/dL Normal 0.0-1.2 [facility] Comment on above: Performed By: #### 2 4323-8 ####ANDI Cotter ([id number])[facility])[address] [place] [address] Calcium [Mass/Vol] 9.1 mg/dL Normal 8.6-10.6 [facility] Comment on above: Performed By: #### 2 4323-8 ####ANDI Cotter ([id number])[facility])[address] [place] [address] Chloride [Moles/Vol] 97 mmol/L Low 98-107 [facility] Comment on above: Performed By: #### 2 4323-8 ####ANDI Cotter ([id number])[facility])[address]45 [place] [address] CO2 [Moles/Vol] 26 mmol/L Normal 21-32 [facility] Comment on above: Performed By: #### 2 4323-8 ####ANDI CHAUDHARY L (46891)[facility])[address]286 [place] [address] Creatinine [Mass/Vol] 0.73 mg/dL Normal 0.50-1.05 [facility] Comment on above: Performed By: #### 2 4323-8 ####ANDI Cotter ([id number])[facility])[address] [place] [address] GFR/1.73 sq M.predicted MDRD (S/P/Bld) [Vol rate/Area] mL/min/{1.73_m2} Normal >60 [facility] Comment on above: Result Comment: Calc ulations of estimated GFR are performed using the 2020 CKD-EPI Study Refit equation without the race variable for the IDMS-Traceable creatinine methods.https://jasn.asnjournals.org/content/early/ N.2523595783 Performed By: #### 2 4323-8 ####ANDI Cotter ([id number])[facility])[address] [place] [address] Glucose [Mass/Vol] 157 mg/dL High 74-99 [facility] Comment on above: Performed By: #### 2 4323-8 ####ANDI Cotter (69143)[facility])[address] [place] [address] Potassium [Moles/Vol] 3.8 mmol/L Normal 3.5-5.3 [facility] Comment on above: Performed By: #### 2 4323-8 ####ANDI Cotter ([id number])[facility])[address] [place] [address] Protein [Mass/Vol] 7.7 g/dL Normal 6.4-8.2 [facility] Comment on above: Performed By: #### 2 4323-8 ####ANDI Cotter ([id number])[facility])[address]49 [place] [address] Sodium [Moles/Vol] 135 mmol/L Low 136-145 [facility] Comment on above: Performed By: #### 2 4323-8 ####ANDI Cotter ([id number])[facility])[address] [place] [address] Urea nitrogen [Mass/Vol] 10 mg/dL Normal - [facility] Comment on above: Performed By: #### 2 4323-8 ####ANDI Cotter ([id number])[facility])[address] [place] [address] Glucose Test strip manual (B ld) [Mass/Vol]on 02-07-2024 Glucose [Mass/Vol] 121 mg/dL High 74-99 [facility] Comment on above: Performed By: #### 2 341-6 ####ANDI Cotter ([id number])[facility])[address] [place] [address] Glucose [Mass/Vol] 170 mg/dL High 74-99 [facility] Comment on above: Performed By: #### 2 341-6 ####ANDI Cotter ([id number])[facility])[address] [place] [address] Glucose [Mass/Vol] 177 mg/dL High [address] [place] [address] Comment on above: Performed By: #### 2 341-6 ####ANDI Cotter ([id number])[facility])[address] [place] [address] Glucose [Mass/Vol] 160 mg/dL High 74-99 [facility] Comment on above: Performed By: #### 2 341-6 ####ANDI Cotter ([id number])[facility])[address] [place] [address] Heparin.unfractionatedon Heparin unfractionated Chromogenic method Qn (PPP) 0.4 IU/mL Normal See Comment Below for Therapeutic Ranges [facility] Comment on above: Order Comment: The t herapeutic reference range for UFH may be either 0.3-0.6 IU/mL or 0.3-0.7 IU/mL based on the clinical setting for anticoagulant therapy and the associated nomogram used. For Heparin dosing guidelines based on clinical scenario and Heparin Assay results, please refer to local Pharmacy and [facility] Guidelines for Anticoagulation Therapy available on the [facility] intranet at: [email or web address] Performed By: #### 3 274-8 ####ANDI Cotter ([id number])[facility])[address] [place] [address] Heparin unfractionated Chromogenic method Qn (PPP) 0.1 IU/mL Normal See Comment Below for Therapeutic Ranges [facility] Comment on above: Order Comment: Obtai n 4 hours after any Heparin dosage change. Nursing to release order.The therapeutic reference range for UFH may be either 0.3-0.6 IU/mL or 0.3-0.7 IU/mL based on the clinical setting for anticoagulant therapy and the associated nomogram used. For Heparin dosing guidelines based on clinical scenario and Heparin Assay results, please refer to local Pharmacy and [facility] Guidelines for Anticoagulation Therapy available on the [facility] intranet at: [email or web address] Performed By: #### 3 274-8 ####ANDI Cotter ([id number])[facility])[address] [place] [address] Magnesiumon 02-07-2024 Magnesium [Mass/Vol] 1.92 mg/dL Normal 1.60-2.40 [facility] Comment on above: Performed By: #### 1 9123-9 ####ANDI Cotter ([id number])[facility])[address] [place] [address]198 CBC W Auto Differential pane l (Bld)on 02-06-2024 Basophils (Bld) [#/Vol] 0.05 x10*3/uL Normal 0.00-0.10 [facility] Comment on above: Performed By: #### 5 7021-8 ####ANDI Cotter ([id number])[facility])[address]79 [place] [address] Basophils/100 WBC (Bld) 0.4 % Normal 0.0-2.0 [facility] Comment on above: Performed By: #### 5 7021-8 ####ANDI Cotter ([id number])[facility])[address] [place] [address] 19682 Eosinophils (Bld) [#/Vol] 0.25 x10*3/uL Normal 0.00-0.70 [facility] Comment on above: Performed By: #### 5 7021-8 ####ANDI Cotter ([id number])[facility])[address] [place] [address] Eosinophils/100 WBC (Bld) 2.2 % Normal 0.0-6.0 [facility] Comment on above: Performed By: #### 5 7021-8 ####ANDI Cotter ([id number])[facility])[address] [place] [address] Erythrocyte distribution width (RBC) [Ratio] 13.5 % Normal 11.5-14.5 [facility] Comment on above: Performed By: #### 5 7021-8 ####ANDI Cotter ([id number])[facility])[address] [place] [address]225 Hematocrit (Bld) [Volume fraction] 33.1 % Low 36.0-46.0 [facility] Comment on above: Performed By: #### 5 7021-8 ####ANDI Cotter ([id number])[facility])[address] [place] [address] 38325 Hemoglobin (Bld) [Mass/Vol] 10.4 g/dL Low 12.0-16.0 [facility] Comment on above: Performed By: #### 5 7021-8 ####ANDI Cotter ([id number])[facility])[address]492 [place] [address] Immature granulocytes (Bld) [#/Vol] 0.23 x10*3/uL Normal 0.00-0.70 [facility] Comment on above: Performed By: #### 5 7021-8 ####ANDI Cotter ([id number])[facility])[address]781 [place] [address] Immature granulocytes/100 WBC (Bld) 2.1 % High 0.0-0.9 [facility] Comment on above: Result Comment: Debbie ture Granulocyte Count (IG) includes promyelocytes, myelocytes and metamyelocytes but does not include bands. Percent differential counts (%) should be interpreted in the context of the absolute cell counts (cells/UL). Performed By: #### 5 7021-8 ####ANDI Cotter ([id number])[facility])[address]331 [place] [address] Lymphocytes (Bld) [#/Vol] 2.00 x10*3/uL Normal 1.20-4.80 [facility] Comment on above: Performed By: #### 5 7021-8 ####ANDI Cotter ([id number])[facility])[address]38 [place] [address] Lymphocytes/100 WBC (Bld) 17.9 % Normal 13.0-44.0 [facility] Comment on above: Performed By: #### 5 7021-8 ####ANDI Cotter ([id number])[facility])[address]957 [place] [address] MCH (RBC) [Entitic mass] 28.9 pg Normal 26.0-34.0 [facility] Comment on above: Performed By: #### 5 7021-8 ####ANDI RAJPUTMOFIDELINA L ([id number])[facility])[address]771 [place] [address] MCHC (RBC) [Mass/Vol] 31.4 g/dL Low 32.0-36.0 [facility] Comment on above: Performed By: #### 5 7021-8 ####ANDI Cotter ([id number])[facility])[address]407 [place] [address] MCV (RBC) [Entitic vol] 92 fL Normal 80-100 [facility] Comment on above: Performed By: #### 5 7021-8 ####ANDI Cotter ([id number])[facility])[address] [place] [address] Monocytes (Bld) [#/Vol] 0.73 x10*3/uL Normal 0.10-1.00 [facility] Comment on above: Performed By: #### 5 7021-8 ####ANDI Cotter ([id number])[facility])[address]51 [place] [address] Monocytes/100 WBC (Bld) 6.5 % Normal 2.0-10.0 [facility] Comment on above: Performed By: #### 5 7021-8 ####ANDI Cotter ([id number])[facility])[address] [place] [address] Neutrophils (Bld) [#/Vol] 7.91 x10*3/uL High 1.20-7.70 [facility] Comment on above: Result Comment: Perc ent differential counts (%) should be interpreted in the context of the absolute cell counts (cells/uL). Performed By: #### 5 7021-8 ####ANDI Cotter ([id number])[facility])[address]486 [place] [address] Neutrophils/100 WBC (Bld) 70.9 % Normal 40.0-80.0 [facility] Comment on above: Performed By: #### 5 7021-8 ####ANDI Cotter ([id number])[facility])[address] [place] [address] Nucleated RBC/100 WBC (Bld) [Ratio] 0.0 /100 WBCs Normal 0.0-0.0 [facility] Comment on above: Performed By: #### 5 7021-8 ####ANDI Cotter ([id number])[facility])[address]36 [place] [address] Platelets (Bld) [#/Vol] 333 x10*3/uL Normal 150-450 [facility] Comment on above: Performed By: #### 5 7021-8 ####ANDI Cotter ([id number])[facility])[address] [place] [address] 08981 RBC (Bld) [#/Vol] 3.60 x10*6/uL Low 4.00-5.20 [facility] Comment on above: Performed By: #### 5 7021-8 ####ANDI Cotter ([id number])[facility] ([facility])[id number] [place] [address] 40421 WBC (Bld) [#/Vol] 11.2 x10*3/uL Normal 4.4-11.3 [facility] Comment on above: Performed By: #### 5 7021-8 ####ANDI Cotter ([id number])[facility] ([facility])[id number] [place] [id number] Coagulation surface inducedo n 02-06-2024 aPTT Coag (PPP) [Time] 50 s High 27-38 [facility] Comment on above: Order Comment: Prior to initiating heparin if not obtained in prior 48 hours. Nursing to release order.The APTT is no longer used for monitoring Unfractionated Heparin Therapy. For monitoring Heparin Therapy, use the Heparin Assay. Performed By: #### 1 4979-9 ####ANDI Cotter ([id number])[facility] ([facility])[id number] [place] [address] Comprehensive metabolic 2000 panelon 02-06-2024 Albumin BCP dye [Mass/Vol] 3.3 g/dL Low 3.4-5.0 [facility] Comment on above: Performed By: #### 2 4323-8 ####ANDI Cotter ([id number])[facility])[address] [place] [address] ALP [Catalytic activity/Vol] 179 U/L High 33-110 [facility] Comment on above: Performed By: #### 2 4323-8 ####ANDI Cotter ([id number])[facility])[address] [place] [address] ALT With P-5'-P [Catalytic activity/Vol] 55 U/L High 7-45 [facility] Comment on above: Result Comment: Evelyn ents treated with Sulfasalazine may generate falsely decreased results for ALT. Performed By: #### 2 4323-8 ####ANDI Cotter ([id number])[facility])[address] [place] [address] Anion gap [Moles/Vol] 15 mmol/L Normal 10-20 [facility] Comment on above: Performed By: #### 2 4323-8 ####ANDI Cotter ([id number])[facility])[address] [place] [address] AST With P-5'-P [Catalytic activity/Vol] 45 U/L High 9-39 [facility] Comment on above: Performed By: #### 2 4323-8 ####ANDI Cotter ([id number])[facility])[address] [place] [address] Bilirubin [Mass/Vol] 0.3 mg/dL Normal 0.0-1.2 [facility] Comment on above: Performed By: #### 2 4323-8 ####ANDI Cotter ([id number])[facility])[address] [place] [address] Calcium [Mass/Vol] 8.6 mg/dL Normal 8.6-10.6 [facility] Comment on above: Performed By: #### 2 4323-8 ####ANDI Cotter ([id number])[facility])[address] [place] [address] Chloride [Moles/Vol] 99 mmol/L Normal 98-107 [facility] Comment on above: Performed By: #### 2 4323-8 ####ANDI RENEEER L ([id number])[facility])[address] [place] [address] CO2 [Moles/Vol] 27 mmol/L Normal 21-32 [facility] Comment on above: Performed By: #### 2 4323-8 ####ANDI CHAUDHARY L ([id number])[facility])[address] [place] [address] Creatinine [Mass/Vol] 0.77 mg/dL Normal 0.50-1.05 [facility] Comment on above: Performed By: #### 2 4323-8 ####ANDI CHAUDHARY L ([id number])[facility])[address] [place] [address] GFR/1.73 sq M.predicted MDRD (S/P/Bld) [Vol rate/Area] mL/min/{1.73_m2} Normal >60 [facility] Comment on above: Result Comment: Calc ulations of estimated GFR are performed using the 2020 CKD-EPI Study Refit equation without the race variable for the IDMS-Traceable creatinine methods.https://jasn.asnjournals.org/content/early/ N.4761938363 Performed By: #### 2 4323-8 ####ANDI MADRIDTZJYOTI L ([id number])[facility])[address] [place] [address] Glucose [Mass/Vol] 154 mg/dL High 74-99 [facility] Comment on above: Performed By: #### 2 4323-8 ####ANDI CHAUDHARY L ([id number])[facility])[address] [place] [address] Potassium [Moles/Vol] 3.8 mmol/L Normal 3.5-5.3 [facility] Comment on above: Performed By: #### 2 4323-8 ####ANDI Cotter ([id number])[facility])[address] [place] [address] Protein [Mass/Vol] 6.5 g/dL Normal 6.4-8.2 [facility] Comment on above: Performed By: #### 2 4323-8 ####ANDI Cotter ([id number])[facility])[address] [place] [address] Sodium [Moles/Vol] 137 mmol/L Normal 136-145 [facility] Comment on above: Performed By: #### 2 4323-8 ####ANDI Cotter ([id number])[facility])[address] [place] [address] Urea nitrogen [Mass/Vol] 10 mg/dL Normal 6-23 [facility] Comment on above: Performed By: #### 2 4323-8 ####ANDI Cotter ([id number])[facility])[address] [place] [address] Glucose Test strip manual (B ld) [Mass/Vol]on 02-06-2024 Glucose [Mass/Vol] 140 mg/dL High [address] [place] [address] Comment on above: Performed By: #### 2 341-6 ####ANDI Cotter ([id number])[facility])[address] [place] [address] Glucose [Mass/Vol] 205 mg/dL High -[address] [place] [address] Comment on above: Performed By: #### 2 341-6 ####ANDI Cotter ([id number])[facility])[address] [place] [address] Glucose [Mass/Vol] 160 mg/dL High 74-[address] [place] [address] Comment on above: Performed By: #### 2 341-6 ####ANDI Cotter ([id number])[facility])[address] [place] [address] Heparin.unfractionatedon Heparin unfractionated Chromogenic method Qn (PPP) 0.3 IU/mL Normal See Comment Below for Therapeutic Ranges [facility] Comment on above: Order Comment: Obtai n 4 hours after any Heparin dosage change. Nursing to release order.The therapeutic reference range for UFH may be either 0.3-0.6 IU/mL or 0.3-0.7 IU/mL based on the clinical setting for anticoagulant therapy and the associated nomogram used. For Heparin dosing guidelines based on clinical scenario and Heparin Assay results, please refer to local Pharmacy and the [facility] Guidelines for Anticoagulation Therapy available on the [facility] intranet at: [email or web address]_Guidelines_[email or web address].aspx Performed By: #### 3 274-8 ####ANDI Cotter ([id number])[facility])[address] [place] [address] Magnesiumon 02-06-2024 Magnesium [Mass/Vol] 1.91 mg/dL Normal 1.60-2.40 [facility] Comment on above: Performed By: #### 1 9123-9 ####ANDI Cotter ([id number])[facility])[address] [place] [address] Basic metabolic 2000 panelon 02-05-2024 Anion gap [Moles/Vol] 16 mmol/L Normal 10-20 [facility] Comment on above: Performed By: #### 2 4321-2 ####ANDI Cotter ([id number])[facility])[address] [place] [address] Calcium [Mass/Vol] 8.8 mg/dL Normal 8.6-10.6 [facility] Comment on above: Performed By: #### 2 4321-2 ####ANDI CHAUDHARY L ([id number])[facility])[address] [place] [address] Chloride [Moles/Vol] 99 mmol/L Normal 98-107 [facility] Comment on above: Performed By: #### 2 4321-2 ####ANDI CHAUDHARY L ([id number])[facility])[address] [place] [address] CO2 [Moles/Vol] 26 mmol/L Normal 21-32 [facility] Comment on above: Performed By: #### 2 4321-2 ####ANDI CHAUDHARY L ([id number])[facility])[address] [place] [address] Creatinine [Mass/Vol] 0.70 mg/dL Normal 0.50-1.05 [facility] Comment on above: Performed By: #### 2 4321-2 ####ANDI Cotter ([id number])[facility])[address]127 [place] [address] GFR/1.73 sq M.predicted MDRD (S/P/Bld) [Vol rate/Area] mL/min/{1.73_m2} Normal >60 [facility] Comment on above: Result Comment: Calc ulations of estimated GFR are performed using the 2020 CKD-EPI Study Refit equation without the race variable for the IDMS-Traceable creatinine methods.https://jasn.asnjournals.org/content/early// N.2039321306 Performed By: #### 2 4321-2 ####ANDI CHAUDHARY L ([id number])[facility])[address] [place] [address] Glucose [Mass/Vol] 116 mg/dL High 74-99 [facility] Comment on above: Performed By: #### 2 4321-2 ####ANDI CHAUDHARY L ([id number])[facility])[address] [place] [address] Potassium [Moles/Vol] 4.0 mmol/L Normal 3.5-5.3 [facility] Comment on above: Performed By: #### 2 4321-2 ####ANDI Cotter ([id number])[facility])[address]105 [place] [address] Sodium [Moles/Vol] 137 mmol/L Normal 136-145 [facility] Comment on above: Performed By: #### 2 4321-2 ####ANDI Cotter ([id number])[facility])[address] [place] [address] Urea nitrogen [Mass/Vol] 7 mg/dL Normal 6-23 [facility] Comment on above: Performed By: #### 2 4321-2 ####ANDI Cotter ([id number])[facility])[address] [place] [address] CBC W Auto Differential pane l (Bld)on 02-05-2024 Basophils (Bld) [#/Vol] 0.06 x10*3/uL Normal 0.00-0.10 [facility] Comment on above: Performed By: #### 5 7021-8 ####ANDI Cotter ([id number])[facility])[address] [place] [address] Basophils/100 WBC (Bld) 0.5 % Normal 0.0-2.0 [facility] Comment on above: Performed By: #### 5 7021-8 ####ANDI Cotter ([id number])[facility])[address]483 [place] [address] Eosinophils (Bld) [#/Vol] 0.26 x10*3/uL Normal 0.00-0.70 [facility] Comment on above: Performed By: #### 5 7021-8 ####ANDI Cotter ([id number])[facility])[address]99 [place] [address] Eosinophils/100 WBC (Bld) 2.1 % Normal 0.0-6.0 [facility] Comment on above: Performed By: #### 5 7021-8 ####ANDI Cotter ([id number])[facility])[address] [place] [address] Erythrocyte distribution width (RBC) [Ratio] 13.5 % Normal 11.5-14.5 [facility] Comment on above: Performed By: #### 5 7021-8 ####ANDI Cotter ([id number])[facility])[address] [place] [address] Hematocrit (Bld) [Volume fraction] 33.4 % Low 36.0-46.0 [facility] Comment on above: Performed By: #### 5 7021-8 ####ANDI Cotter ([id number])[facility])[address] [place] [address] Hemoglobin (Bld) [Mass/Vol] 10.1 g/dL Low 12.0-16.0 [facility] Comment on above: Performed By: #### 5 7021-8 ####ANDI Cotter ([id number])[facility])[address] [place] [address] Immature granulocytes (Bld) [#/Vol] 0.22 x10*3/uL Normal 0.00-0.70 [facility] Comment on above: Performed By: #### 5 7021-8 ####ANDI Cotter ([id number])[facility])[address] [place] [address] Immature granulocytes/100 WBC (Bld) 1.8 % High 0.0-0.9 [facility] Comment on above: Result Comment: Debbie ture Granulocyte Count (IG) includes promyelocytes, myelocytes and metamyelocytes but does not include bands. Percent differential counts (%) should be interpreted in the context of the absolute cell counts (cells/UL). Performed By: #### 5 7021-8 ####ANDI Cotter ([id number])[facility])[address]27 [place] [address] Lymphocytes (Bld) [#/Vol] 1.84 x10*3/uL Normal 1.20-4.80 [facility] Comment on above: Performed By: #### 5 7021-8 ####ANDI Cotter ([id number])[facility])[address]346 [place] [address] Lymphocytes/100 WBC (Bld) 14.7 % Normal 13.0-44.0 [facility] Comment on above: Performed By: #### 5 7021-8 ####ANDI Cotter ([id number])[facility])[address] [place] [address] MCH (RBC) [Entitic mass] 27.7 pg Normal 26.0-34.0 [facility] Comment on above: Performed By: #### 5 7021-8 ####ANDI Cotter ([id number])[facility])[address] [place] [address] MCHC (RBC) [Mass/Vol] 30.2 g/dL Low 32.0-36.0 [facility] Comment on above: Performed By: #### 5 7021-8 ####ANDI Cotter ([id number])[facility])[address] [place] [address] MCV (RBC) [Entitic vol] 92 fL Normal 80-100 [facility] Comment on above: Performed By: #### 5 7021-8 ####ANDI Cotter ([id number])[facility])[address] [place] [address] Monocytes (Bld) [#/Vol] 1.01 x10*3/uL High 0.10-1.00 [facility] Comment on above: Performed By: #### 5 7021-8 ####ANDI Cotter ([id number])[facility])[address]241 [place] [address] Monocytes/100 WBC (Bld) 8.1 % Normal 2.0-10.0 [facility] Comment on above: Performed By: #### 5 7021-8 ####ANDI Cotter ([id number])[facility])[address]342 [place] [address] Neutrophils (Bld) [#/Vol] 9.11 x10*3/uL High 1.20-7.70 [facility] Comment on above: Result Comment: Perc ent differential counts (%) should be interpreted in the context of the absolute cell counts (cells/uL). Performed By: #### 5 7021-8 ####ANDI Cotter ([id number])[facility])[address] [place] [address] Neutrophils/100 WBC (Bld) 72.8 % Normal 40.0-80.0 [facility] Comment on above: Performed By: #### 5 7021-8 ####ANDI Cotter ([id number])[facility])[address] [place] [address]90 Nucleated RBC/100 WBC (Bld) [Ratio] 0.0 /100 WBCs Normal 0.0-0.0 [facility] Comment on above: Performed By: #### 5 7021-8 ####ANDI Cotter ([id number])[facility])[address]44 [place] [address] Platelets (Bld) [#/Vol] 330 x10*3/uL Normal 150-450 [facility] Comment on above: Performed By: #### 5 7021-8 ####ANDI CHAUDHARY L ([id number])[facility])[address] [place] [address] RBC (Bld) [#/Vol] 3.65 x10*6/uL Low 4.00-5.20 [facility] Comment on above: Performed By: #### 5 7021-8 ####ANDI Cotter ([id number])[facility])[address]65 [place] [address] WBC (Bld) [#/Vol] 12.5 x10*3/uL High 4.4-11.3 [facility] Comment on above: Performed By: #### 5 7021-8 ####ANDI Cotter ([id number])[facility])[address]55 [place] [address] Glucose Test strip manual (B ld) [Mass/Vol]on 02-05-2024 Glucose [Mass/Vol] 190 mg/dL High [address] [place] [address] Comment on above: Performed By: #### 2 341-6 ####ANDI Cotter ([id number])[facility])[address]17 [place] [address] Glucose [Mass/Vol] 152 mg/dL High [address] [place] [address] Comment on above: Performed By: #### 2 341-6 ####ANDI Cotter ([id number])[facility])[address]281 [place] [address] Glucose [Mass/Vol] 124 mg/dL High [address] [place] [address] Comment on above: Performed By: #### 2 341-6 ####ANDI Cotter ([id number])[facility])[address] [place] [address] Heparin.unfractionatedon Heparin unfractionated Chromogenic method Qn (PPP) 0.3 IU/mL Normal See Comment Below for Therapeutic Ranges [facility] Comment on above: Order Comment: Obtai n 4 hours after any Heparin dosage change. Nursing to release order.The therapeutic reference range for UFH may be either 0.3-0.6 IU/mL or 0.3-0.7 IU/mL based on the clinical setting for anticoagulant therapy and the associated nomogram used. For Heparin dosing guidelines based on clinical scenario and Heparin Assay results, please refer to local Pharmacy and the [facility] Guidelines for Anticoagulation Therapy available on the [facility] intranet at: [email or web address] [email or web address]_[email or web address] Performed By: #### 3 274-8 ####ANDI Cotter ([id number])[facility])[address] [place] [address] Heparin unfractionated Chromogenic method Qn (PPP) 0.3 IU/mL Normal See Comment Below for Therapeutic Ranges [facility] Comment on above: Order Comment: Obtai n 4 hours after any Heparin dosage change. Nursing to release order.The therapeutic reference range for UFH may be either 0.3-0.6 IU/mL or 0.3-0.7 IU/mL based on the clinical setting for anticoagulant therapy and the associated nomogram used. For Heparin dosing guidelines based on clinical scenario and Heparin Assay results, please refer to local Pharmacy and the [facility] Guidelines for Anticoagulation Therapy available on the [facility] intranet at: [email or web address] [email or web address]_[email or web address].aspx Performed By: #### 3 274-8 ####ANDI Cotter ([id number])[facility] [place] [address] Heparin unfractionated Chromogenic method Qn (PPP) 0.1 IU/mL Normal See Comment Below for Therapeutic Ranges [facility] Comment on above: Order Comment: Obtai n 4 hours after initiation of heparin infusion. Nursing to release order.The therapeutic reference range for UFH may be either 0.3-0.6 IU/mL or 0.3-0.7 IU/mL based on the clinical setting for anticoagulant therapy and the associated nomogram used. For Heparin dosing guidelines based on clinical scenario and Heparin Assay results, please refer to local Pharmacy and the [facility] Guidelines for Anticoagulation Therapy available on the [facility] intranet at: [email or web address]_[email or web address] Performed By: #### 3 274-8 ####ANDI Cotter ([id number])[facility])[address] [place] [address] Hepatic function 2000 panelo n 02-05-2024 Albumin BCP dye [Mass/Vol] 3.3 g/dL Low 3.4-5.0 [facility] Comment on above: Performed By: #### 2 4325-3 ####ANDI Cotter ([id number])[facility])[address]224 [place] [address] ALP [Catalytic activity/Vol] 168 U/L High 33-110 [facility] Comment on above: Performed By: #### 2 4325-3 ####ANDI Cotter (36536)[facility])[address]493 [place] [address] ALT With P-5'-P [Catalytic activity/Vol] 44 U/L Normal 7-45 [facility] Comment on above: Result Comment: Evelyn ents treated with Sulfasalazine may generate falsely decreased results for ALT. Performed By: #### 2 4325-3 ####ANDI Cotter ([id number])[facility])[address] [place] [address] AST With P-5'-P [Catalytic activity/Vol] 61 U/L High 9-39 [facility] Comment on above: Performed By: #### 2 4325-3 ####ANDI Cotter ([id number])[facility])[address]231 [place] [address] Bilirubin [Mass/Vol] 0.4 mg/dL Normal 0.0-1.2 [facility] Comment on above: Performed By: #### 2 4325-3 ####ANDI CHAUDHARY L (64598)[facility])[address]113 [place] [address] Bilirubin.direct [Mass/Vol] 0.1 mg/dL Normal 0.0-0.3 [facility] Comment on above: Performed By: #### 2 4325-3 ####ANDI Cotter ([id number])[facility])[address] [place] [address] Protein [Mass/Vol] 7.1 g/dL Normal 6.4-8.2 [facility] Comment on above: Performed By: #### 2 4325-3 ####ANDI Cotter (57284)[facility])[address]858 [place] [address] Magnesiumon 02-05-2024 Magnesium [Mass/Vol] 1.93 mg/dL Normal 1.60-2.40 [facility] Comment on above: Performed By: #### 1 9123-9 ####ANDI Cotter (93525)[facility])[address] [place] [address] PT and aPTT panel Coag (PPP) on 02-05-2024 aPTT Coag (PPP) [Time] 31 s Normal 27-38 [facility] Comment on above: Order Comment: The A PTT is no longer used for monitoring Unfractionated Heparin Therapy. For monitoring Heparin Therapy, use the Heparin Assay. Performed By: #### 3 4529-8 ####ANDI Cotter ([id number])[facility])[address] [place] [address] INR Coag (PPP) [Relative time] 1.3 High 0.9-1.1 [facility] Comment on above: Order Comment: The A PTT is no longer used for monitoring Unfractionated Heparin Therapy. For monitoring Heparin Therapy, use the Heparin Assay. Performed By: #### 3 4529-8 ####ANDI Cotter ([id number])[facility])[address] [place] [address] PT Coag (PPP) [Time] 15.1 s High 9.8-12.8 [facility] Comment on above: Order Comment: The A PTT is no longer used for monitoring Unfractionated Heparin Therapy. For monitoring Heparin Therapy, use the Heparin Assay. Performed By: #### 3 4529-8 ####ANDI Cotter ([id number])[facility])[address] [place] [address] Phosphateon 02-05-2024 Phosphate [Mass/Vol] 3.6 mg/dL Normal 2.5-4.9 [facility] Comment on above: Result Comment: The performance characteristics of phosphorus testing in heparinized plasma have been validated by the individual laboratory site where testing is performed. Testing on heparinized plasma is not approved by the FDA; however, such approval is not necessary. Performed By: #### 2 777-1 ####ANDI Cotter ([id number])[facility])[address] [place] [address] Bacteria identifiedon 2023 Bacteria identified Cx Nom (Bld) [facility] Comment on above: Performed By: #### 6 00-7 ####ANDI Cotter ([id number])[facility])[address] [place] [address] Bacteria identified Cx Nom (Bld) [facility] Comment on above: Performed By: #### 6 00-7 ####ANDI Cotter ([id number])[facility])[address]344 [place] [address] Basic metabolic 2000 panelon 02-04-2024 Anion gap [Moles/Vol] 15 mmol/L Normal 10-20 [facility] Comment on above: Performed By: #### 2 4321-2 ####ANDI Cotter (35643)[facility])[address]70 [place] [address] Calcium [Mass/Vol] 8.2 mg/dL Low 8.6-10.6 [facility] Comment on above: Performed By: #### 2 4321-2 ####ANDI Cotter ([id number])[facility])[address] [place] [address] Chloride [Moles/Vol] 100 mmol/L Normal 98-107 [facility] Comment on above: Performed By: #### 2 4321-2 ####ANDI Cotter ([id number])[facility])[address]759 [place] [address] CO2 [Moles/Vol] 26 mmol/L Normal 21-32 [facility] Comment on above: Performed By: #### 2 4321-2 ####ANDI Cotter ([id number])[facility])[address] [place] [address] Creatinine [Mass/Vol] 0.68 mg/dL Normal 0.50-1.05 [facility] Comment on above: Performed By: #### 2 4321-2 ####ANDI Cotter ([id number])[facility])[address]447 [place] [address] GFR/1.73 sq M.predicted MDRD (S/P/Bld) [Vol rate/Area] mL/min/{1.73_m2} Normal >60 [facility] Comment on above: Result Comment: Calc ulations of estimated GFR are performed using the 2020 CKD-EPI Study Refit equation without the race variable for the IDMS-Traceable creatinine methods.https://jasn.asnjournals.org/content/early/ N.5721593454 Performed By: #### 2 4321-2 ####ANDI Cotter ([id number])[facility])[address] [place] [address] Glucose [Mass/Vol] 99 mg/dL Normal 74-99 [facility] Comment on above: Performed By: #### 2 4321-2 ####ANDI Cotter ([id number])[facility] [place] [address] Potassium [Moles/Vol] 4.5 mmol/L Normal 3.5-5.3 [facility] Comment on above: Performed By: #### 2 4321-2 ####ANDI Cotter ([id number])[facility] ([facility])[address] [place] [address] Sodium [Moles/Vol] 136 mmol/L Normal 136-145 [facility] Comment on above: Performed By: #### 2 4321-2 ####ANDI Cotter ([id number])[facility])[address] [place] [address] Urea nitrogen [Mass/Vol] 7 mg/dL Normal - [facility] Comment on above: Performed By: #### 2 4321-2 ####ANDI Cotter ([id number])[facility])[address] [place] [address], [place] [address] Blood type and Indirect anti body screen panel (Bld)on 02-04-2024 ABO group Nom (Bld) A Normal [facility] Comment on above: Order Comment: Revie w your Rh Negative female patient's potential need for Rh Immune Globulin (RhIg)administration. Performed By: #### 3 4532-2 ####ANDI Cotter ([id number])[facility] ([facility])[address] [place] [address] Blood group antibody screen Ql Negative Normal [facility] Comment on above: Order Comment: Revie w your Rh Negative female patient's potential need for Rh Immune Globulin (RhIg)administration. Performed By: #### 3 4532-2 ####ANDI Cotter ([id number])[facility] ([facility])[address] [place] [address] D Ag Ql (Bld) Negative [facility] Comment on above: Order Comment: Revie w your Rh Negative female patient's potential need for Rh Immune Globulin (RhIg)administration. Performed By: #### 3 4532-2 ####ANDI Cotter ([id number])[facility] ([facility])[address] [place] [address] C reactive proteinon 024 CRP [Mass/Vol] 14.39 mg/dL High <1.00 [facility] Comment on above: Performed By: #### 1 988-5 ####ANDI Cotter ([id number])[facility])[address] [place] [address] CBC W Auto Differential pane l (Bld)on 02-04-2024 Basophils (Bld) [#/Vol] 0.05 x10*3/uL Normal 0.00-0.10 [facility] Comment on above: Performed By: #### 5 7021-8 ####ANDI Cotter ([id number])[facility])[address] [place] [address] Basophils/100 WBC (Bld) 0.4 % Normal 0.0-2.0 [facility] Comment on above: Performed By: #### 5 7021-8 ####ANDI Cotter ([id number])[facility])[address] [place] [address] Eosinophils (Bld) [#/Vol] 0.22 x10*3/uL Normal 0.00-0.70 [facility] Comment on above: Performed By: #### 5 7021-8 ####ANDI CHAUDHARY L ([id number])[facility])[address] [place] [address] Eosinophils/100 WBC (Bld) 1.9 % Normal 0.0-6.0 [facility] Comment on above: Performed By: #### 5 7021-8 ####ANDI Cotter ([id number])[facility])[address] [place] [address] Erythrocyte distribution width (RBC) [Ratio] 13.6 % Normal 11.5-14.5 [facility] Comment on above: Performed By: #### 5 7021-8 ####ANDI CHAUDHARY L ([id number])[facility])[address] [place] [address] Hematocrit (Bld) [Volume fraction] 32.7 % Low 36.0-46.0 [facility] Comment on above: Performed By: #### 5 7021-8 ####ANDI Cotter ([id number])[facility])[address] [place] [address] Hemoglobin (Bld) [Mass/Vol] 10.3 g/dL Low 12.0-16.0 [facility] Comment on above: Performed By: #### 5 7021-8 ####ANDI Cotter ([id number])[facility])[address] [place] [address] Immature granulocytes (Bld) [#/Vol] 0.29 x10*3/uL Normal 0.00-0.70 [facility] Comment on above: Performed By: #### 5 7021-8 ####ANDI Cotter ([id number])[facility])[address] [place] [address] Immature granulocytes/100 WBC (Bld) 2.5 % High 0.0-0.9 [facility] Comment on above: Result Comment: Debbie ture Granulocyte Count (IG) includes promyelocytes, myelocytes and metamyelocytes but does not include bands. Percent differential counts (%) should be interpreted in the context of the absolute cell counts (cells/UL). Performed By: #### 5 7021-8 ####ANDI Cotter ([id number])[facility])[address] [place] [address] Lymphocytes (Bld) [#/Vol] 2.04 x10*3/uL Normal 1.20-4.80 [facility] Comment on above: Performed By: #### 5 7021-8 ####ANDI Cotter ([id number])[facility])[address] [place] [address] Lymphocytes/100 WBC (Bld) 17.4 % Normal 13.0-44.0 [facility] Comment on above: Performed By: #### 5 7021-8 ####ANDI Cotter ([id number])[facility])[address] [place] [address] MCH (RBC) [Entitic mass] 28.3 pg Normal 26.0-34.0 [facility] Comment on above: Performed By: #### 5 7021-8 ####ANDI Cotter ([id number])[facility])[address] [place] [address] MCHC (RBC) [Mass/Vol] 31.5 g/dL Low 32.0-36.0 [facility] Comment on above: Performed By: #### 5 7021-8 ####ANDI CHAUDHARY L ([id number])[facility])[address] [place] [address] MCV (RBC) [Entitic vol] 90 fL Normal 80-100 [facility] Comment on above: Performed By: #### 5 7021-8 ####ANDI Cotter ([id number])[facility])[address] [place] [address] Monocytes (Bld) [#/Vol] 1.05 x10*3/uL High 0.10-1.00 [facility] Comment on above: Performed By: #### 5 7021-8 ####ANDI Cotter ([id number])[facility])[address] [place] [address] Monocytes/100 WBC (Bld) 9.0 % Normal 2.0-10.0 [facility] Comment on above: Performed By: #### 5 7021-8 ####ANDI RAJPUTMOFIDELINA L ([id number])[facility])[address] [place] [address] Neutrophils (Bld) [#/Vol] 8.05 x10*3/uL High 1.20-7.70 [facility] Comment on above: Result Comment: Perc ent differential counts (%) should be interpreted in the context of the absolute cell counts (cells/uL). Performed By: #### 5 7021-8 ####ANDI RAJPUTMOFIDELINA L ([id number])[facility])[address] [place] [address] Neutrophils/100 WBC (Bld) 68.8 % Normal 40.0-80.0 [facility] Comment on above: Performed By: #### 5 7021-8 ####ANDI Cotter ([id number])[facility])[address] [place] [address] Nucleated RBC/100 WBC (Bld) [Ratio] 0.0 /100 WBCs Normal 0.0-0.0 [facility] Comment on above: Performed By: #### 5 7021-8 ####ANDI CHAUDHARY L ([id number])[facility])[address] [place] [address] Platelets (Bld) [#/Vol] 343 x10*3/uL Normal 150-450 [facility] Comment on above: Performed By: #### 5 7021-8 ####ANDI Cotter ([id number])[facility])[address] [place] [address] RBC (Bld) [#/Vol] 3.64 x10*6/uL Low 4.00-5.20 [facility] Comment on above: Performed By: #### 5 7021-8 ####ANDI Cotter ([id number])[facility])[address] [place] [address] WBC (Bld) [#/Vol] 11.7 x10*3/uL High 4.4-11.3 [facility] Comment on above: Performed By: #### 5 7021-8 ####ANDI Cotter ([id number])[facility])[address] [place] [address] ECG 12-LEADon 02-04-2024 ECG 12-LEAD Ventricular Rate 84 Atrial Rate 84 P-R Interval 136 QRS Duration 84 Q-T Interval 400 QTC Calculation(Bazett) 472 P [place] 8 R [place] -5 T [place] 30 QRS Count 14 Q Onset 226 P Onset 158 P Offset 210 T Offset 426 QTC Fredericia 447 Diagnosis Normal sinus rhythm with sinus arrhythmia Normal ECG When compared with ECG of 06-DEC-2023 11:52, No significant change was found Confirmed by Dominick Naik ([id number]) on 02/07/2024 7:51:09 AM Normal [facility] ESR Westergren method (Bld) [Velocity]on 02-04-2024 ESR (Bld) [Velocity] 77 mm/h High 0-20 [facility] Comment on above: Performed By: #### 4 537-7 ####ANDI Cotter ([id number])[facility])[address] [place] [address] Glucose Test strip manual (B ld) [Mass/Vol]on 02-04-2024 Glucose [Mass/Vol] 132 mg/dL High 74-99 [facility] Comment on above: Performed By: #### 2 341-6 ####ANDI Cotter ([id number])[facility])[address] [place] [address] HbA1c (Bld) [Mass fraction]o n 02-04-2024 Average glucose Estimated from glycated hemoglobin (Bld) [Mass/Vol] 166 mg/dL Normal Not Established [facility] Comment on above: Order Comment: Diagn osis of Vyrlrjgu-OcakwsAnk-Jctacycw: < or = 5.6%Increased risk for developing diabetes: 5.7-6.4%Diagnostic of diabetes: > or = 6.5%Monitoring of DiabetesAge (y)....................... Therapeutic Goal (%)Adults: >18.........................<7.0Pediatrics: 13-18...................<7.5Pediatrics: 7-12....................<8.0Pediatrics: 0-6..................... 7.5-8.5American Diabetes Association. Diabetes Care 33(S1), Sep 2009 Performed By: #### 4 548-4 ####ANDI Cotter ([id number])[facility])[address] [place] [address] Hemoglobin A1c/Hemoglobin.to fermín 02-04-2024 HbA1c (Bld) [Mass fraction] 7.4 % High see below [facility] Comment on above: Order Comment: Diagn osis of Vwiubdeg-YscvzcRkq-Ttxoemtr: < or = 5.6%Increased risk for developing diabetes: 5.7-6.4%Diagnostic of diabetes: > or = 6.5%Monitoring of DiabetesAge (y)....................... Therapeutic Goal (%)Adults: >18.........................<7.0Pediatrics: 13-18...................<7.5Pediatrics: 7-12....................<8.0Pediatrics: 0-6..................... 7.5-8.5American Diabetes Association. Diabetes Care 33(S1), Sep 2009 Performed By: #### 4 548-4 ####ANDI Cotter ([id number])[facility])[address] [place] [address] Hepatic function 2000 panelo n 02-04-2024 Albumin BCP dye [Mass/Vol] 3.4 g/dL Normal 3.4-5.0 [facility] Comment on above: Performed By: #### 2 4325-3 ####ANDI Cotter ([id number])[facility])[address] [place] [address] ALP [Catalytic activity/Vol] 155 U/L High 33-110 [facility] Comment on above: Performed By: #### 2 4325-3 ####ANDI Cotter ([id number])[facility])[address] [place] [address] ALT With P-5'-P [Catalytic activity/Vol] 35 U/L Normal 7-45 [facility] Comment on above: Result Comment: Evelyn ents treated with Sulfasalazine may generate falsely decreased results for ALT. Performed By: #### 2 4325-3 ####ANDI Cotter ([id number])[facility])[address] [place] [address] AST With P-5'-P [Catalytic activity/Vol] 44 U/L High 9-39 [facility] Comment on above: Performed By: #### 2 4325-3 ####ANDI Cotter ([id number])[facility])[address] [place] [address] Bilirubin [Mass/Vol] 0.4 mg/dL Normal 0.0-1.2 [facility] Comment on above: Performed By: #### 2 4325-3 ####ANDI Cotter ([id number])[facility])[address] [place] [address] Bilirubin.direct [Mass/Vol] 0.1 mg/dL Normal 0.0-0.3 [facility] Comment on above: Performed By: #### 2 4325-3 ####ANDI Cotter ([id number])[facility])[address] [place] [address] Protein [Mass/Vol] 6.5 g/dL Normal 6.4-8.2 [facility] Comment on above: Performed By: #### 2 4325-3 ####ANDI Cotter ([id number])[facility])[address] [place] [address] LIPID PANEL NON-FASTINGon Cholesterol [Mass/Vol] 131 mg/dL Normal 0-199 [facility] Comment on above: Result Comment: Age Desirable [...] Performed By: #### L IPIN ####ANDI Cotter ([id number])[facility])[address] [place] [address] Cholesterol in HDL [Mass/Vol] 22.0 mg/dL Normal [facility] Comment on above: Result Comment: Age Very Low Low Normal High0-19 Y < 35 < 40 40-45 ----20-24 Y ---- < 40 >45 ---->24 Y ---- < 40 40-60 >60 Performed By: #### L IPIN ####ANDI Cotter ([id number])[facility])[address] [place] [address] CHOLESTEROL/HDL RATIO 6.0 Normal [facility] Comment on above: Result Comment: Ref ValuesDesirable < 3.4High Risk > 5.0 Performed By: #### L IPIN ####ANDI Cotter ([id number])[facility])[address] [place] [address] NON-HDL CHOLESTEROL 109 mg/dL Normal 0-149 [facility] Comment on above: Result Comment: Age Desiable Borderline High High Very High 0- 19 Y 0 - 119 120 - 144 >/= 145 >/= 84631-59 Y 0 - 149 150 - 189 >/= 190 ---- >24 Y 30 MG/DL ABOVE LDL CHOLESTEROL GOAL Performed By: #### L IPIN ####ANDI Cotter ([id number])[facility])[address] [place] [address] PT and aPTT panel Coag (PPP) on 02-04-2024 aPTT Coag (PPP) [Time] 29 s Normal 27-38 [facility] Comment on above: Order Comment: The A PTT is no longer used for monitoring Unfractionated Heparin Therapy. For monitoring Heparin Therapy, use the Heparin Assay. Performed By: #### 3 4529-8 ####ANDI Cotter ([id number])[facility])[address] [place] [address] INR Coag (PPP) [Relative time] 1.3 High 0.9-1.1 [facility] Comment on above: Order Comment: The A PTT is no longer used for monitoring Unfractionated Heparin Therapy. For monitoring Heparin Therapy, use the Heparin Assay. Performed By: #### 3 4529-8 ####ANDI Cotter ([id number])[facility])[address] [place] [address] PT Coag (PPP) [Time] 15.2 s High 9.8-12.8 [facility] Comment on above: Order Comment: The A PTT is no longer used for monitoring Unfractionated Heparin Therapy. For monitoring Heparin Therapy, use the Heparin Assay. Performed By: #### 3 4529-8 ####ANDI Cotter ([id number])[facility])[address] [place] [address] Phosphateon 02-04-2024 Phosphate [Mass/Vol] 3.6 mg/dL Normal 2.5-4.9 [facility] Comment on above: Result Comment: The performance characteristics of phosphorus testing in heparinized plasma have been validated by the individual laboratory site where testing is performed. Testing on heparinized plasma is not approved by the FDA; however, such approval is not necessary. Performed By: #### 2 777-1 ####ANDI Cotter ([id number])[facility])[address] [place] [address] Triacylglycerol lipaseon Lipase [Catalytic activity/Vol] 16 U/L Normal 9-82 [facility] Comment on above: Order Comment: Venip uncture immediately after or during the administration of Metamizole may lead to falsely low results. Testing should be performed immediately prior to Metamizole dosing. Performed By: #### 3 040-3 ####ANDI Cotter ([id number])[facility])[address] [place] [address] .GFRon 01-18-2024 GFR 80 ml/min/1.73sqm Normal [facility] ([place]) Comment on above: Result Comment: GFR Population [...] meters Performed By: #### C K #### [address] [address] GFR Non- 66 ml/min/1.73sqm Normal [facility] ([place]) Comment on above: Result Comment: GFR Population [...] meters Performed By: #### C K #### [address] [address] CMPon 01-18-2024 Albumin Level 3.6 G/dL Normal 3.5-5.0 [facility] ([place]) Comment on above: Performed By: #### U A, PREGU #### [facility] [place] [address] [place], [place] [address] Albumin/Globulin [Mass ratio] 1.0 {ratio} Low 1.1-2.5 [facility] ([place]) Comment on above: Performed By: #### U A, PREGU #### [facility] [place] [address] [place], [place] [address] ALP [Catalytic activity/Vol] 127 U/L Normal 40-135 [facility] ([place]) Comment on above: Performed By: #### U A, PREGU #### [facility] [place] [address] [place], [place] [address] ALT [Catalytic activity/Vol] 96 U/L High 14-59 [facility] ([place]) Comment on above: Performed By: #### U A, PREGU #### [facility] [place] [address] [place], [place] [address] AST [Catalytic activity/Vol] 71 U/L High 10-40 [facility] ([place]) Comment on above: Performed By: #### U A, PREGU #### [facility] [place] [address] [place], [place] [address] Bili Total 0.3 mg/dL Normal 0.2-1.0 [facility] ([place]) Comment on above: Result Comment: Use of this assay is not recommended for patients undergoing treatment with eltrombopag due to the potential for falsely elevated results. Performed By: #### U A, PREGU #### [facility] [address] [place], [place] [address] BUN/Creatinine Ratio 11 ratio Normal 7-27 [facility] ([place]) Comment on above: Performed By: #### U A, PREGU #### [facility] [place] [address] [place], [place] [address] Calcium [Mass/Vol] 9.1 mg/dL Normal 8.4-10.2 [facility] ([place]) Comment on above: Performed By: #### U A, PREGU #### [facility] [place] [address] [place], [place] [address] Chloride [Moles/Vol] 101 mmol/L Normal 98-107 [facility] ([place]) Comment on above: Performed By: #### U A, PREGU #### Sean Loaizan [address] [place], [place] [address] CO2 [Moles/Vol] 27 mmol/L Normal 22-29 [facility] ([place]) Comment on above: Performed By: #### U A, PREGU #### Sean Loaizan [address] [place], [place] [address] Creatinine [Mass/Vol] 0.91 mg/dL Normal 0.55-1.02 [facility] ([place]) Comment on above: Performed By: #### U A, PREGU #### Sean Reynolds [address] [place], [place] [address] Electrolyte Balance 12.0 mEq/L Normal 4.0-15.0 [facility] ([place]) Comment on above: Performed By: #### U A, PREGU #### Seanoz Reynolds [address] [place], [place] [address] Globulin 3.7 G/dL Normal [facility] ([place]) Comment on above: Performed By: #### U A, PREGU #### Seanoz Reynolds [address] [place], [place] [address] Glucose [Mass/Vol] 113 mg/dL High 70-105 [facility] ([place]) Comment on above: Performed By: #### U A, PREGU #### Seanoz Reynolds [address] [place], [place] [address] Potassium [Moles/Vol] 4.2 mmol/L Normal 3.5-5.1 [facility] ([place]) Comment on above: Performed By: #### U A, PREGU #### Seanoz Loaizan [address] [place], [place] [address] Sodium [Moles/Vol] 140 mmol/L Normal 136-145 [facility] ([place]) Comment on above: Performed By: #### U A, PREGU #### Seanoz Loaizan [address] [place], [place] [address] Total Protein 7.3 G/dL Normal 6.4-8.2 [facility] ([place]) Comment on above: Performed By: #### U A, PREGU #### Sean Davisillon [address] [place], [place] [address] Urea nitrogen [Mass/Vol] 10 mg/dL Normal 7-18 [facility] ([place]) Comment on above: Performed By: #### U A, PREGU #### Sean Davisillon [address] [place], [place] [address] FT4on 01-18-2024 Free T4 [Mass/Vol] 1.05 ng/dL Normal 0.76-1.46 [facility] ([place]) Comment on above: Performed By: #### U A, PREGU #### Sean Loaizan [address] [place], [place] [address] LABORATORYOrdered By: SYSTEM SYSTEM on 01-18-2024 25-hydroxyvitamin [...] 01-18-2024 Cholesterol [Mass/Vol] 244 mg/dL High 0-200 [facility] ([place] Comment on above: Result Comment: Chol esterol Reference Interval: Less than 200 Desirable 200-239 Borderline high risk 240 and above High risk Performed By: #### C K #### [address] [address] Cholesterol in HDL [Mass/Vol] 27 mg/dL Low 40-60 [facility] ([place] Comment on above: Performed By: #### C K #### [address] [address] Cholesterol in LDL [Mass/Vol] 139 mg/dL High 0-130 [facility] ([place] Comment on above: Performed By: #### C K #### Sean [address] [place], [place] [address] Triglyceride [Mass/Vol] 388 mg/dL High 0-150 [facility] ([place] Comment on above: Result Comment: Trig lyceride Reference Interval: Less than 150 Normal 150-199 Borderline high risk 200-499 High risk 500 or higher Very high risk Performed By: #### C K #### Sean [address]wood [address] [place], [place] [address] TSHon 01-18-2024 TSH Qn 1.87 m[IU]/L Normal 0.36-3.74 [facility] ([place]) Comment on above: Performed By: #### U A, PREGU #### [facility] [address] [place], [place] [address] VIDHon 01-18-2024 Vit. D 25-Hydroxy 42.4 ng/mL Normal [facility] ([place]) Comment on above: Result Comment: Inte rpretive Values Based on Total 25(OH) Vitamin D: Deficient <20 ng/mL Insufficient 20 - <30 ng/mL Sufficient 30-100 ng/mL Performed By: #### U A, PREGU #### [facility] [address] [place], [place] [address] Basic metabolic 2000 panelon 12-08-2023 Anion gap [Moles/Vol] 16 mmol/L 10 - 2 0 mmol/L [facility] Calcium [Mass/Vol] 9.6 mg/dL 8.6 - 10. 6 mg/dL [facility] Chloride [Moles/Vol] 98 mmol/L 98 - 10 7 mmol/L [facility] CO2 [Moles/Vol] 27 mmol/L 21 - 32 mmol/L [facility] Creatinine [Mass/Vol] 0.65 mg/dL 0.50 - 1.05 mg/dL [facility] eGFR - PINF [facility] Comment on above: Calculations of estuardo mated GFR are performed using the 2020 CKD-EPI Study Refit equation without the race variable for the IDMS-Traceable creatinine methods. https://jasn.asnjournals.org/content//ASN.474982 2010 Glucose [Mass/Vol] 197 mg/dL High 74 - 99 mg/dL [facility] Interpretation and review of laboratory results Abnormal [facility] Potassium [Moles/Vol] 3.8 mmol/L 3.5 - 5.3 mmol/L [facility] Sodium [Moles/Vol] 137 mmol/L 136 - 145 mmol/L [facility] Urea nitrogen [Mass/Vol] 15 mg/dL 6 - 23 mg/dL [facility] Anion gap [Moles/Vol] 16 mmol/L Normal 10-20 [facility] Comment on above: Performed By: #### 2 4321-2 ####ANDI CHAUDHARY L ([id number])[facility] [place] [address] Calcium [Mass/Vol] 9.6 mg/dL Normal 8.6-10.6 [facility] Comment on above: Performed By: #### 2 4321-2 ####ANDI CHAUDHARY L ([id number])[facility])[address] [place] [address] Chloride [Moles/Vol] 98 mmol/L Normal 98-107 [facility] Comment on above: Performed By: #### 2 4321-2 ####ANDI RAJPUTMOTZER L ([id number])[facility])[address] [place] [address] CO2 [Moles/Vol] 27 mmol/L Normal 21-32 [facility] Comment on above: Performed By: #### 2 4321-2 ####ANDI RAJPUTMOTZER L ([id number])[facility])[address] [place] [address] Creatinine [Mass/Vol] 0.65 mg/dL Normal 0.50-1.05 [facility] Comment on above: Performed By: #### 2 4321-2 ####ANDI CHAUDHARY L ([id number])[facility])[address] [place] [address] GFR/1.73 sq M.predicted MDRD (S/P/Bld) [Vol rate/Area] mL/min/{1.73_m2} Normal >60 [facility] Comment on above: Result Comment: Calc ulations of estimated GFR are performed using the 2020 CKD-EPI Study Refit equation without the race variable for the IDMS-Traceable creatinine methods.https://jasn.asnjournals.org/content/early// N.4175334618 Performed By: #### 2 4321-2 ####ANDI CHAUDHARY L ([id number])[facility])[address] [place] [address] Glucose [Mass/Vol] 197 mg/dL High 74-99 [facility] Comment on above: Performed By: #### 2 4321-2 ####ANDI CHAUDHARY L ([id number])[facility])[address] [place] [address] Potassium [Moles/Vol] 3.8 mmol/L Normal 3.5-5.3 [facility] Comment on above: Performed By: #### 2 4321-2 ####ANDI CHAUDHARY L ([id number])[facility])[address] [place] [address] Sodium [Moles/Vol] 137 mmol/L Normal 136-145 [facility] Comment on above: Performed By: #### 2 4321-2 ####ANDI RAJPUTMOTZER L ([id number])[facility])[address] [place] [address] Urea nitrogen [Mass/Vol] 15 mg/dL Normal 6-23 [facility] Comment on above: Performed By: #### 2 4321-2 ####ANDI CHAUDHARY L ([id number])[facility])[address] [place] [address] CBC W Auto Differential pane l (Bld)on 12-08-2023 Basophils (Bld) [#/Vol] 0.04 10*3/uL [facility] Basophils/100 WBC (Bld) 0.8 % 0.0 - 2.0 % [facility] Eosinophils (Bld) [#/Vol] 0.23 10*3/uL [facility] Eosinophils/100 WBC (Bld) 4.6 % 0.0 - 6.0 % [facility] Erythrocyte distribution width (RBC) [Ratio] 13.8 % 11.5 - 14.5 % [facility] Hematocrit (Bld) [Volume fraction] 36.5 % 36.0 - 46.0 % [facility] Hemoglobin (Bld) [Mass/Vol] 11.1 g/dL Low 12.0 - 16.0 g/dL [facility] Immature granulocytes (Bld) [#/Vol] 0.03 10*3/uL [facility] Immature granulocytes/100 WBC (Bld) 0.6 % 0.0 - 0.9 % [facility] Comment on above: Immature Granulocyte Count (IG) includes promyelocytes, myelocytes and metamyelocytes but does not include bands. Percent differential counts (%) should be interpreted in the context of the absolute cell counts (cells/UL). Interpretation and review of laboratory results Abnormal [facility] Lymphocytes (Bld) [#/Vol] 1.55 10*3/uL [facility] Lymphocytes/100 WBC (Bld) 30.8 % 13.0 - 44.0 % [facility] MCH (RBC) [Entitic mass] 28.5 pg 26.0 - 34.0 pg [facility] MCHC (RBC) [Mass/Vol] 30.4 g/dL Low 32.0 - 36.0 g/dL [facility] MCV (RBC) [Entitic vol] 94 fL 80 - 100 fL [facility] Monocytes (Bld) [#/Vol] 0.49 10*3/uL [facility] Monocytes/100 WBC (Bld) 9.7 % 2.0 - 10.0 % [facility] Neutrophils (Bld) [#/Vol] 2.69 10*3/uL [facility] Comment on above: Percent differential counts (%) should be interpreted in the context of the absolute cell counts (cells/uL). Neutrophils/100 WBC (Bld) 53.5 % 40.0 - 80.0 % [facility] Nucleated RBC/100 WBC (Bld) [Ratio] 0.0 % [facility] Platelets (Bld) [#/Vol] 178 10*3/uL [facility] RBC (Bld) [#/Vol] 3.89 10*6/uL Low [facility] WBC (Bld) [#/Vol] 5.0 10*3/uL [facility] Basophils (Bld) [#/Vol] 0.04 x10*3/uL Normal 0.00-0.10 [facility] Comment on above: Performed By: #### 5 7021-8 ####ANDI Cotter ([id number])[facility])[address] [place] [address] Basophils/100 WBC (Bld) 0.8 % Normal 0.0-2.0 [facility] Comment on above: Performed By: #### 5 7021-8 ####ANDI Cotter ([id number])[facility])[address] [place] [address] Eosinophils (Bld) [#/Vol] 0.23 x10*3/uL Normal 0.00-0.70 [facility] Comment on above: Performed By: #### 5 7021-8 ####ANDI Cotter ([id number])[facility])[address] [place] [address] Eosinophils/100 WBC (Bld) 4.6 % Normal 0.0-6.0 [facility] Comment on above: Performed By: #### 5 7021-8 ####ANDI Cotter ([id number])[facility])[address] [place] [address] Erythrocyte distribution width (RBC) [Ratio] 13.8 % Normal 11.5-14.5 [facility] Comment on above: Performed By: #### 5 7021-8 ####ANDI Cotter ([id number])[facility])[address] [place] [address] Hematocrit (Bld) [Volume fraction] 36.5 % Normal 36.0-46.0 [facility] Comment on above: Performed By: #### 5 7021-8 ####ANDI CHAUDHARY L ([id number])[facility])[address] [place] [address] Hemoglobin (Bld) [Mass/Vol] 11.1 g/dL Low 12.0-16.0 [facility] Comment on above: Performed By: #### 5 7021-8 ####ANDI Cotter ([id number])[facility])[address] [place] [address] Immature granulocytes (Bld) [#/Vol] 0.03 x10*3/uL Normal 0.00-0.70 [facility] Comment on above: Performed By: #### 5 7021-8 ####ANDI Cotter ([id number])[facility])[address] [place] [address] Immature granulocytes/100 WBC (Bld) 0.6 % Normal 0.0-0.9 [facility] Comment on above: Result Comment: Debbie ture Granulocyte Count (IG) includes promyelocytes, myelocytes and metamyelocytes but does not include bands. Percent differential counts (%) should be interpreted in the context of the absolute cell counts (cells/UL). Performed By: #### 5 7021-8 ####ANDI Cotter ([id number])[facility])[address] [place] [address] Lymphocytes (Bld) [#/Vol] 1.55 x10*3/uL Normal 1.20-4.80 [facility] Comment on above: Performed By: #### 5 7021-8 ####ANDI Cotter ([id number])[facility])[address] [place] [address] Lymphocytes/100 WBC (Bld) 30.8 % Normal 13.0-44.0 [facility] Comment on above: Performed By: #### 5 7021-8 ####ANDI Cotter ([id number])[facility])[address] [place] [address] MCH (RBC) [Entitic mass] 28.5 pg Normal 26.0-34.0 [facility] Comment on above: Performed By: #### 5 7021-8 ####ANDI Cotter ([id number])[facility])[address] [place] [address] MCHC (RBC) [Mass/Vol] 30.4 g/dL Low 32.0-36.0 [facility] Comment on above: Performed By: #### 5 7021-8 ####ANDI Cotter ([id number])[facility])[address] [place] [address] MCV (RBC) [Entitic vol] 94 fL Normal 80-100 [facility] Comment on above: Performed By: #### 5 7021-8 ####ANDI Cotter ([id number])[facility])[address] [place] [address] Monocytes (Bld) [#/Vol] 0.49 x10*3/uL Normal 0.10-1.00 [facility] Comment on above: Performed By: #### 5 7021-8 ####ANDI Cotter ([id number])[facility])[address] [place] [address] Monocytes/100 WBC (Bld) 9.7 % Normal 2.0-10.0 [facility] Comment on above: Performed By: #### 5 7021-8 ####ANDI Cotter ([id number])[facility])[address] [place] [address] Neutrophils (Bld) [#/Vol] 2.69 x10*3/uL Normal 1.20-7.70 [facility] Comment on above: Result Comment: Perc ent differential counts (%) should be interpreted in the context of the absolute cell counts (cells/uL). Performed By: #### 5 7021-8 ####ANDI Cotter ([id number])[facility])[address] [place] [address] Neutrophils/100 WBC (Bld) 53.5 % Normal 40.0-80.0 [facility] Comment on above: Performed By: #### 5 7021-8 ####ANDI Cotter ([id number])[facility])[address] [place] [address] Nucleated RBC/100 WBC (Bld) [Ratio] 0.0 /100 WBCs Normal 0.0-0.0 [facility] Comment on above: Performed By: #### 5 7021-8 ####ANDI Cotter ([id number])[facility])[address] [place] [address] Platelets (Bld) [#/Vol] 178 x10*3/uL Normal 150-450 [facility] Comment on above: Performed By: #### 5 7021-8 ####ANDI Cotter ([id number])[facility])[address] [place] [address] RBC (Bld) [#/Vol] 3.89 x10*6/uL Low 4.00-5.20 [facility] Comment on above: Performed By: #### 5 7021-8 ####ANDI Cotter ([id number])[facility])[address] [place] [address] WBC (Bld) [#/Vol] 5.0 x10*3/uL Normal 4.4-11.3 [facility] Comment on above: Performed By: #### 5 7021-8 ####ANDI Cotter ([id number])[facility])[address] [place] [address] Coagulation tissue factor in ducedon 12-08-2023 PT Coag (PPP) [Time] 12.3 s Normal 9.8-12.8 [facility] Comment on above: Performed By: #### 5 902-2 ####ANDI Cotter ([id number])[facility])[address] [place] [address] Glucose Test strip manual (B ld) [Mass/Vol]on 12-08-2023 Glucose [Mass/Vol] 193 mg/dL High 74 - 99 mg/dL [facility] Interpretation and review of laboratory results Abnormal [facility] Glucose [Mass/Vol] 193 mg/dL High 74-99 [facility] Comment on above: Performed By: #### 2 341-6 ####ANDI Cotter ([id number])[facility])[address] [place] [address] Glucose [Mass/Vol] 199 mg/dL High 74 - 99 mg/dL [facility] Interpretation and review of laboratory results Abnormal [facility] Glucose [Mass/Vol] 199 mg/dL High 74-99 [facility] Comment on above: Performed By: #### 2 341-6 ####ANDI Cotter ([id number])[facility])[address] [place] [address] Hepatic function 2000 panelo n 12-08-2023 Albumin BCP dye [Mass/Vol] 3.9 g/dL 3.4 - 5.0 g/dL [facility] ALP [Catalytic activity/Vol] 107 U/L 33 - 110 U/L [facility] ALT With P-5'-P [Catalytic activity/Vol] 62 U/L High 7 - 45 U/L [facility] Comment on above: Patients treated wit h Sulfasalazine may generate falsely decreased results for ALT. AST With P-5'-P [Catalytic activity/Vol] 42 U/L High 9 - 39 U/L [facility] Bilirubin [Mass/Vol] 0.4 mg/dL 0.0 - 1 .2 mg/dL [facility] Bilirubin.direct [Mass/Vol] 0.1 mg/dL 0.0 - 0.3 mg/dL [facility] Interpretation and review of laboratory results Abnormal [facility] Protein [Mass/Vol] 6.5 g/dL 6.4 - 8.2 g/dL [facility] Albumin BCP dye [Mass/Vol] 3.9 g/dL Normal 3.4-5.0 [facility] Comment on above: Performed By: #### 2 4325-3 ####ANDI Cotter ([id number])[facility])[address] [place] [address] ALP [Catalytic activity/Vol] 107 U/L Normal 33-110 [facility] Comment on above: Performed By: #### 2 5-3 ####ANDI CHAUDHARY L ([id number])[facility])[address] [place] [address] ALT With P-5'-P [Catalytic activity/Vol] 62 U/L High 7-45 [facility] Comment on above: Result Comment: Evelyn ents treated with Sulfasalazine may generate falsely decreased results for ALT. Performed By: #### 2 4325-3 ####ANDI Cotter ([id number])[facility])[address] [place] [address] AST With P-5'-P [Catalytic activity/Vol] 42 U/L High 9-39 [facility] Comment on above: Performed By: #### 2 4325-3 ####ANDI CHAUDHARY L ([id number])[facility])[address] [place] [address] Bilirubin [Mass/Vol] 0.4 mg/dL Normal 0.0-1.2 [facility] Comment on above: Performed By: #### 2 4325-3 ####ANDI RENEEER L ([id number])[facility])[address] [place] [address] Bilirubin.direct [Mass/Vol] 0.1 mg/dL Normal 0.0-0.3 [facility] Comment on above: Performed By: #### 2 4325-3 ####ANDI Cotter ([id number])[facility])[address] [place] [address] Protein [Mass/Vol] 6.5 g/dL Normal 6.4-8.2 [facility] Comment on above: Performed By: #### 2 4325-3 ####ANDI Cotter ([id number])[facility])[address] [place] [address] MRSA isol Org specific cx Ql (Nose)Ordered By: Maral Alonzo on 12-08-2023 Interpretation and review of laboratory results Abnormal [facility] Staphylococcus sp identified Org specific cx Nom (Unsp spec) Isolated: Methicillin Resistant Staphylococcus aureus (MRSA) Abnormal [facility] Magnesiumon 12-08-2023 Magnesium [Mass/Vol] 1.89 mg/dL 1.60 - 2.40 mg/dL [facility] Magnesium [Mass/Vol] 1.89 mg/dL Normal 1.60-2.40 [facility] Comment on above: Performed By: #### 1 9123-9 ####ANDI Cotter ([id number])[facility])[address] [place], [place] [address] No Panel Informationon 12-07 Interpretation and review of laboratory results Normal [facility] PT Coag (PPP) [Time]on 12-07 INR Coag (PPP) [Relative time] 1.1 {INR} 0.9 - 1.1 [facility] Interpretation and review of laboratory results Normal [facility] INR Coag (PPP) [Relative time] 1.1 Normal 0.9-1.1 [facility] Comment on above: Performed By: #### 5 902-2 ####ADNI Cotter ([id number])[facility])[address] [place] [address] Phosphateon 12-08-2023 Phosphate [Mass/Vol] 3.8 mg/dL Normal 2.5-4.9 [facility] Comment on above: Result Comment: The performance characteristics of phosphorus testing in heparinized plasma have been validated by the individual laboratory site where testing is performed. Testing on heparinized plasma is not approved by the FDA; however, such approval is not necessary. Performed By: #### 2 777-1 ####ANDI Cotter ([id number])[facility])[address] [place] [address] Phosphoruson 12-08-2023 Phosphate [Mass/Vol] 3.8 mg/dL 2.5 - 4 .9 mg/dL [facility] Comment on above: The performance timi acteristics of phosphorus testing in heparinized plasma have been validated by the individual laboratory site where testing is performed. Testing on heparinized plasma is not approved by the FDA; however, such approval is not necessary. Protime-INRon 12-08-2023 PT Coag (PPP) [Time] 12.3 s [facility].doppler Lower extremity v ein - bilateralon 12-08-2023 [place] [id number] and Vascular Lab Report [facility] US LOWER EXTREMITY VENOUS DUPLEX BILATERAL Patient Name: DOROTHEA Lees Physician: [id number] Molina Wu DO Study Date: 12/08/2023 Ordering [id number] NANCY Dial Physician: JHONATAN MRN/PID: [id number] Technologist: Adrien Fish T Technologist 2: Date of /Age: 4 1975 / 47 years Gender: F Admission Status: Inpatient Location [facility] Performed: Diagnosis/ICD: Acute embolism and thrombosis of unspecified deep veins of bilateral distal lower extremity-I82.4Z3 CPT Codes: 01343 Peripheral venous duplex scan for DVT complete [...] Spontaneous/Phasic Peroneal Yes None PTV Yes None 79631 Molina Wu DO Final Molina Weaver DO - 12/08/2023 [place] [address] and Vascular Lab Report [facility] US LOWER EXTREMITY VENOUS DUPLEX BILATERAL Patient Name: DOROTHEA Abdoulaye Lees Physician: [id number] Molina Wu DO Study Date: 12/08/2023 Ordering [id number] NANCY Dial Physician: JHONATAN MRN/PID: [id number] Technologist: Adrien Fish [facility] Technologist 2: Date of /Age: 4 1975 / 47 years Gender: F Admission Status: Inpatient Location [facility] Performed: Diagnosis/ICD: Acute embolism and thrombosis of unspecified deep veins of bilateral distal lower extremity-I82.4Z3 CPT Codes: 93357 Peripheral venous duplex scan for DVT complete [...] Spontaneous/Phasic Peroneal Yes None PTV Yes None 75427 Molina Wu DO Final [facility] Work Phone: Radiology Study observation (narrative) [facility] Work Phone: US.doppler Lower extremity v ein - bilateralOrdered By: Molina Wu on 12-08-2023 [facility] Work Phone: VASC US LOWER EXTREMITY VENO US DUPLEX BILATERALon 12-08-2023 VASC US LOWER EXTREMITY VENOUS DUPLEX BILATERAL Normal [facility] Basic metabolic 2000 panelon 12-07-2023 Anion gap [Moles/Vol] 17 mmol/L 10 - 2 0 mmol/L [facility] Calcium [Mass/Vol] 9.3 mg/dL 8.6 - 10. 6 mg/dL [facility] Chloride [Moles/Vol] 96 mmol/L Low 98 - 10 7 mmol/L [facility] CO2 [Moles/Vol] 25 mmol/L 21 - 32 mmol/L [facility] Creatinine [Mass/Vol] 0.74 mg/dL 0.50 - 1.05 mg/dL [facility] eGFR - PINF [facility] Comment on above: Calculations of estuardo mated GFR are performed using the 2020 CKD-EPI Study Refit equation without the race variable for the IDMS-Traceable creatinine methods. https://jasn.asnjournals.org/content//ASN.294855 7855 Glucose [Mass/Vol] 202 mg/dL High 74 - 99 mg/dL [facility] Interpretation and review of laboratory results Abnormal [facility] Potassium [Moles/Vol] 3.3 mmol/L Low 3.5 - 5.3 mmol/L [facility] Sodium [Moles/Vol] 135 mmol/L Low 136 - 145 mmol/L [facility] Urea nitrogen [Mass/Vol] 16 mg/dL 6 - 23 mg/dL [facility] Anion gap [Moles/Vol] 17 mmol/L Normal 10-20 [facility] Comment on above: Performed By: #### 2 4321-2 ####ANDI RENEEER L ([id number])[facility])[address] [place] [address] Calcium [Mass/Vol] 9.3 mg/dL Normal 8.6-10.6 [facility] Comment on above: Performed By: #### 2 4321-2 ####ANDI MADRIDTZER L ([id number])[facility])[address] [place] [address] Chloride [Moles/Vol] 96 mmol/L Low 98-107 [facility] Comment on above: Performed By: #### 2 4321-2 ####ANDI RAJPUTMOTZER L ([id number])[facility])[address] [place] [address] CO2 [Moles/Vol] 25 mmol/L Normal 21-32 [facility] Comment on above: Performed By: #### 2 4321-2 ####ANDI MADRIDTZER L ([id number])[facility])[address] [place] [address] Creatinine [Mass/Vol] 0.74 mg/dL Normal 0.50-1.05 [facility] Comment on above: Performed By: #### 2 4321-2 ####ANDI MADRIDTZER L ([id number])[facility])[address] [place] [address] GFR/1.73 sq M.predicted MDRD (S/P/Bld) [Vol rate/Area] mL/min/{1.73_m2} Normal >60 [facility] Comment on above: Result Comment: Calc ulations of estimated GFR are performed using the 2020 CKD-EPI Study Refit equation without the race variable for the IDMS-Traceable creatinine methods.https://jasn.asnjournals.org/content/early/ N.8192742954 Performed By: #### 2 4321-2 ####ANDI Cotter ([id number])[facility])[address] [place] [address] Glucose [Mass/Vol] 202 mg/dL High 74-99 [facility] Comment on above: Performed By: #### 2 4321-2 ####ANDI Cotter ([id number])[facility])[address] [place] [address] Potassium [Moles/Vol] 3.3 mmol/L Low 3.5-5.3 [facility] Comment on above: Performed By: #### 2 4321-2 ####ANDI Cotter ([id number])[facility])[address] [place] [address] Sodium [Moles/Vol] 135 mmol/L Low 136-145 [facility] Comment on above: Performed By: #### 2 4321-2 ####ANDI Cotter ([id number])[facility])[address] [place] [address]97 Urea nitrogen [Mass/Vol] 16 mg/dL Normal 6-23 [facility] Comment on above: Performed By: #### 2 4321-2 ####ANDI Cotter ([id number])[facility])[address] [place] [address] 14029 CBC W Auto Differential pane l (Bld)on 12-07-2023 Basophils (Bld) [#/Vol] 0.04 10*3/uL [facility] Basophils/100 WBC (Bld) 0.7 % 0.0 - 2.0 % [facility] Eosinophils (Bld) [#/Vol] 0.17 10*3/uL [facility] Eosinophils/100 WBC (Bld) 2.9 % 0.0 - 6.0 % [facility] Erythrocyte distribution width (RBC) [Ratio] 13.9 % 11.5 - 14.5 % [facility] Hematocrit (Bld) [Volume fraction] 39.7 % 36.0 - 46.0 % [facility] Hemoglobin (Bld) [Mass/Vol] 12.5 g/dL 12.0 - 16.0 g/dL [facility] Immature granulocytes (Bld) [#/Vol] 0.02 10*3/uL [facility] Immature granulocytes/100 WBC (Bld) 0.3 % 0.0 - 0.9 % [facility] Comment on above: Immature Granulocyte Count (IG) includes promyelocytes, myelocytes and metamyelocytes but does not include bands. Percent differential counts (%) should be interpreted in the context of the absolute cell counts (cells/UL). Interpretation and review of laboratory results Abnormal [facility] Lymphocytes (Bld) [#/Vol] 1.63 10*3/uL [facility] Lymphocytes/100 WBC (Bld) 27.4 % 13.0 - 44.0 % [facility] MCH (RBC) [Entitic mass] 28.2 pg 26.0 - 34.0 pg [facility] MCHC (RBC) [Mass/Vol] 31.5 g/dL Low 32.0 - 36.0 g/dL [facility] MCV (RBC) [Entitic vol] 90 fL 80 - 100 fL [facility] Monocytes (Bld) [#/Vol] 0.48 10*3/uL [facility] Monocytes/100 WBC (Bld) 8.1 % 2.0 - 10.0 % [facility] Neutrophils (Bld) [#/Vol] 3.60 10*3/uL [facility] Comment on above: Percent differential counts (%) should be interpreted in the context of the absolute cell counts (cells/uL). Neutrophils/100 WBC (Bld) 60.6 % 40.0 - 80.0 % [facility] Nucleated RBC/100 WBC (Bld) [Ratio] 0.0 % [facility] Platelets (Bld) [#/Vol] 231 10*3/uL [facility] RBC (Bld) [#/Vol] 4.43 10*6/uL [facility] WBC (Bld) [#/Vol] 5.9 10*3/uL [facility] Basophils (Bld) [#/Vol] 0.04 x10*3/uL Normal 0.00-0.10 [facility] Comment on above: Performed By: #### 5 7021-8 ####ANDI Cotter ([id number])[facility])[address] [place] [address] Basophils/100 WBC (Bld) 0.7 % Normal 0.0-2.0 [facility] Comment on above: Performed By: #### 5 70-8 ####ANDI CHAUDHARY L ([id number])[facility])[address] [place] [address] 15277 Eosinophils (Bld) [#/Vol] 0.17 x10*3/uL Normal 0.00-0.70 [facility] Comment on above: Performed By: #### 5 7021-8 ####ANDI CHAUDHARY L ([id number])[facility])[address] [place] [address]185 Eosinophils/100 WBC (Bld) 2.9 % Normal 0.0-6.0 [facility] Comment on above: Performed By: #### 5 7021-8 ####ANDI CHAUDHARY L ([id number])[facility])[address] [place] [address]68 Erythrocyte distribution width (RBC) [Ratio] 13.9 % Normal 11.5-14.5 [facility] Comment on above: Performed By: #### 5 7021-8 ####ANDI CHAUDHARY L ([id number])[facility])[address] [place] [address] Hematocrit (Bld) [Volume fraction] 39.7 % Normal 36.0-46.0 [facility] Comment on above: Performed By: #### 5 7021-8 ####ANDI CHAUDHARY L ([id number])[facility])[address] [place] [address] Hemoglobin (Bld) [Mass/Vol] 12.5 g/dL Normal 12.0-16.0 [facility] Comment on above: Performed By: #### 5 7021-8 ####ANDI Cotter ([id number])[facility])[address] [place] [address] Immature granulocytes (Bld) [#/Vol] 0.02 x10*3/uL Normal 0.00-0.70 [facility] Comment on above: Performed By: #### 5 7021-8 ####ANDI Cotter ([id number])[facility])[address] [place] [address] Immature granulocytes/100 WBC (Bld) 0.3 % Normal 0.0-0.9 [facility] Comment on above: Result Comment: Debbie ture Granulocyte Count (IG) includes promyelocytes, myelocytes and metamyelocytes but does not include bands. Percent differential counts (%) should be interpreted in the context of the absolute cell counts (cells/UL). Performed By: #### 5 7021-8 ####ANDI Cotter ([id number])[facility])[address] [place] [address] Lymphocytes (Bld) [#/Vol] 1.63 x10*3/uL Normal 1.20-4.80 [facility] Comment on above: Performed By: #### 5 7021-8 ####ANDI Cotter ([id number])[facility])[address] [place] [address] Lymphocytes/100 WBC (Bld) 27.4 % Normal 13.0-44.0 [facility] Comment on above: Performed By: #### 5 7021-8 ####ANDI Cotter ([id number])[facility] ([facility])[id number] [place] [address] MCH (RBC) [Entitic mass] 28.2 pg Normal 26.0-34.0 [facility] Comment on above: Performed By: #### 5 7021-8 ####ANDI Cotter ([id number])[facility] ([facility])[id number] [place] [address] MCHC (RBC) [Mass/Vol] 31.5 g/dL Low 32.0-36.0 [facility] Comment on above: Performed By: #### 5 7021-8 ####ANDI Cotter ([id number])[facility])[address] [place] [address] MCV (RBC) [Entitic vol] 90 fL Normal 80-100 [facility] Comment on above: Performed By: #### 5 7021-8 ####ANDI Cotter ([id number])[facility])[address] [place] [address] Monocytes (Bld) [#/Vol] 0.48 x10*3/uL Normal 0.10-1.00 [facility] Comment on above: Performed By: #### 5 7021-8 ####ANDI Cotter ([id number])[facility])[address] [place] [address] Monocytes/100 WBC (Bld) 8.1 % Normal 2.0-10.0 [facility] Comment on above: Performed By: #### 5 7021-8 ####ANDI RAJPUTMOFIDELINA Cotter ([id number])[facility])[address] [place] [address] Neutrophils (Bld) [#/Vol] 3.60 x10*3/uL Normal 1.20-7.70 [facility] Comment on above: Result Comment: Perc ent differential counts (%) should be interpreted in the context of the absolute cell counts (cells/uL). Performed By: #### 5 7021-8 ####ANDI RAJPUTMOTZJYOTI L ([id number])[facility])[address] [place] [address] Neutrophils/100 WBC (Bld) 60.6 % Normal 40.0-80.0 [facility] Comment on above: Performed By: #### 5 7021-8 ####ANDI Cotter ([id number])[facility])[address] [place] [address] Nucleated RBC/100 WBC (Bld) [Ratio] 0.0 /100 WBCs Normal 0.0-0.0 [facility] Comment on above: Performed By: #### 5 7021-8 ####ANDI Cotter ([id number])[facility])[address] [place] [address] Platelets (Bld) [#/Vol] 231 x10*3/uL Normal 150-450 [facility] Comment on above: Performed By: #### 5 7021-8 ####ANDI Cotter ([id number])[facility])[address] [place] [address]69 RBC (Bld) [#/Vol] 4.43 x10*6/uL Normal 4.00-5.20 [facility] Comment on above: Performed By: #### 5 7021-8 ####ANDI Cotter ([id number])[facility])[address] [place] [address] WBC (Bld) [#/Vol] 5.9 x10*3/uL Normal 4.4-11.3 [facility] Comment on above: Performed By: #### 5 7021-8 ####ANDI Cotter ([id number])[facility])[address] [place] [address] CBC panel Auto (Bld)on 12-06 Erythrocyte distribution width (RBC) [Ratio] 13.7 % 11.5 - 14.5 % [facility] Hematocrit (Bld) [Volume fraction] 36.4 % 36.0 - 46.0 % [facility] Hemoglobin (Bld) [Mass/Vol] 12.0 g/dL 12.0 - 16.0 g/dL [facility] Interpretation and review of laboratory results Normal [facility] MCH (RBC) [Entitic mass] 29.6 pg 26.0 - 34.0 pg [facility] MCHC (RBC) [Mass/Vol] 33.0 g/dL 32.0 - 36.0 g/dL [facility] MCV (RBC) [Entitic vol] 90 fL 80 - 100 fL [facility] Nucleated RBC/100 WBC (Bld) [Ratio] 0.0 % [facility] Platelets (Bld) [#/Vol] 207 10*3/uL [facility] RBC (Bld) [#/Vol] 4.06 10*6/uL [facility] WBC (Bld) [#/Vol] 5.8 10*3/uL [facility] Erythrocyte distribution width (RBC) [Ratio] 13.7 % Normal 11.5-14.5 [facility] Comment on above: Performed By: #### 5 8410-2 ####ANDI Cotter ([id number])[facility])[address] [place] [address] Hematocrit (Bld) [Volume fraction] 36.4 % Normal 36.0-46.0 [facility] Comment on above: Performed By: #### 5 8410-2 ####ANDI Cotter ([id number])[facility])[address] [place] [address] Hemoglobin (Bld) [Mass/Vol] 12.0 g/dL Normal 12.0-16.0 [facility] Comment on above: Performed By: #### 5 8410-2 ####ANDI Cotter ([id number])[facility])[address] [place] [address] MCH (RBC) [Entitic mass] 29.6 pg Normal 26.0-34.0 [facility] Comment on above: Performed By: #### 5 8410-2 ####ANDI Cotter ([id number])[facility])[address] [place] [address] MCHC (RBC) [Mass/Vol] 33.0 g/dL Normal 32.0-36.0 [facility] Comment on above: Performed By: #### 5 8410-2 ####ANDI Cotter ([id number])[facility])[address] [place] [address] MCV (RBC) [Entitic vol] 90 fL Normal 80-100 [facility] Comment on above: Performed By: #### 5 8410-2 ####ANDI Cotter ([id number])[facility])[address] [place] [address] Nucleated RBC/100 WBC (Bld) [Ratio] 0.0 /100 WBCs Normal 0.0-0.0 [facility] Comment on above: Performed By: #### 5 8410-2 ####ANDI Cotter ([id number])[facility])[address] [place] [address] Platelets (Bld) [#/Vol] 207 x10*3/uL Normal 150-450 [facility] Comment on above: Performed By: #### 5 8410-2 ####ANDI Cotter ([id number])[facility])[address] [place] [address] 18072 RBC (Bld) [#/Vol] 4.06 x10*6/uL Normal 4.00-5.20 [facility] Comment on above: Performed By: #### 5 8410-2 ####ANDI Cotter ([id number])[facility])[address] [place] [address] 76896 WBC (Bld) [#/Vol] 5.8 x10*3/uL Normal 4.4-11.3 [facility] Comment on above: Performed By: #### 5 8410-2 ####ANDI Cotter ([id number])[facility])[address] [place] [address]674 Coagulation tissue factor in ducedon 12-07-2023 PT Coag (PPP) [Time] 12.9 s High 9.8-12.8 [facility] Comment on above: Performed By: #### 5 902-2 ####ANDI Cotter ([id number])[facility])[address] [place] [address] Electrocardiogram, 12-lead P RN ACS symptomsOrdered By: Evan Judge on 12-07-2023 Atrial Rate 111 BPM [facility] Work Phone: P [place] 41 degrees [facility] Work Phone: P Offset 207 ms [facility] Work Phone: P Onset 152 ms [facility] Work Phone: HI Interval 138 ms [facility] Work Phone: Q Onset 221 ms [facility] Work Phone: QRS Count 18 beats [facility] Work Phone: QRS Duration 84 ms [facility] Work Phone: QT Interval 350 ms [facility] Work Phone: QTC Calculation(Bazett) 476 [facility] Work Phone: QTC Fredericia 429 [facility] Work Phone: R [place] 44 degrees [facility] Work Phone: T [place] 40 degrees [facility] Work Phone: T Offset 396 ms [facility] Work Phone: Ventricular Rate 111 BPM [facility] Work Phone: [facility] Work Phone: Electrocardiogram, 12-lead P RN ACS symptomson 12-07-2023 Sinus tachycardia Otherwise normal ECG When compared with ECG of 10-NOV-2023 13:41, Minimal criteria for Anterior infarct are no longer Present Confirmed by Evan Judge ([id number]) on 12/07/2023 4:49:43 PM Evan Doe MD - 12/07/2023 Sinus tachycardia Otherwise normal ECG When compared with ECG of 10-NOV-2023 13:41, Minimal criteria for Anterior infarct are no longer Present Confirmed by Evan Judge ([id number]) on 12/07/2023 4:49:43 PM [facility] Work Phone: Glucose Test strip manual (B ld) [Mass/Vol]on 12-07-2023 Glucose [Mass/Vol] 227 mg/dL High 74 - 99 mg/dL [facility] Interpretation and review of laboratory results Abnormal [facility] Glucose [Mass/Vol] 227 mg/dL High 74-99 [facility] Comment on above: Performed By: #### 2 341-6 ####ANDI Cotter ([id number])[facility])[address] [place] [address] Glucose [Mass/Vol] 182 mg/dL High 74 - 99 mg/dL [facility] Interpretation and review of laboratory results Abnormal [facility] Glucose [Mass/Vol] 182 mg/dL High 74-99 [facility] Comment on above: Performed By: #### 2 341-6 ####ANDI Cotter ([id number])[facility])[address] [place] [address] Glucose [Mass/Vol] 174 mg/dL High 74 - 99 mg/dL [facility] Interpretation and review of laboratory results Abnormal [facility] Glucose [Mass/Vol] 174 mg/dL High 74-99 [facility] Comment on above: Performed By: #### 2 341-6 ####ANDI Cotter ([id number])[facility])[address] [place] [address] Glucose [Mass/Vol] 211 mg/dL High 74 - 99 mg/dL [facility] Interpretation and review of laboratory results Abnormal [facility] Glucose [Mass/Vol] 211 mg/dL High 74-99 [facility] Comment on above: Performed By: #### 2 341-6 ####ANDI Cotter ([id number])[facility])[address] [place] [address] Glucose [Mass/Vol] 234 mg/dL High 74 - 99 mg/dL [facility] Interpretation and review of laboratory results Abnormal [facility] Glucose [Mass/Vol] 234 mg/dL High 74-99 [facility] Comment on above: Performed By: #### 2 341-6 ####ANDI Cotter ([id number])[facility])[address] [place] [address] Heparin Assay, UFHon 024 Heparin unfractionated Chromogenic method Qn (PPP) 0.2 See Comment Below for Therapeutic Ranges IU/mL [facility] Heparin unfractionated Chrom ogenic method Qn (PPP)on 12-07-2023 Interpretation and review of laboratory results Normal [facility] The therapeutic reference range for UFH may be either 0.3-0.6 IU/mL or 0.3-0.7 IU/mL based on the clinical setting for anticoagulant therapy and the associated nomogram used. For Heparin dosing guidelines based on clinical scenario and Heparin Assay results, please refer to local Pharmacy and the [facility] Guidelines for Anticoagulation Therapy available on the [facility] intranet at: [email or web address] [facility] Hepatic function 2000 panelo n 12-07-2023 Albumin BCP dye [Mass/Vol] 4.3 g/dL 3.4 - 5.0 g/dL [facility] ALP [Catalytic activity/Vol] 112 U/L High 33 - 110 U/L [facility] ALT With P-5'-P [Catalytic activity/Vol] 70 U/L High 7 - 45 U/L [facility] Comment on above: Patients treated wit h Sulfasalazine may generate falsely decreased results for ALT. AST With P-5'-P [Catalytic activity/Vol] 39 U/L 9 - 39 U/L [facility] Bilirubin [Mass/Vol] 0.5 mg/dL 0.0 - 1 .2 mg/dL [facility] Bilirubin.direct [Mass/Vol] 0.2 mg/dL 0.0 - 0.3 mg/dL [facility] Interpretation and review of laboratory results Abnormal [facility] Protein [Mass/Vol] 7.3 g/dL 6.4 - 8.2 g/dL [facility] Albumin BCP dye [Mass/Vol] 4.3 g/dL Normal 3.4-5.0 [facility] Comment on above: Performed By: #### 2 7995-3 ####ANDI Cotter ([id number])[facility])[address] [place] [address] ALP [Catalytic activity/Vol] 112 U/L High 33-110 [facility] Comment on above: Performed By: #### 2 1115-3 ####ANDI Cotter ([id number])[facility])[address] [place] [address] ALT With P-5'-P [Catalytic activity/Vol] 70 U/L High 7-45 [facility] Comment on above: Result Comment: Evelyn ents treated with Sulfasalazine may generate falsely decreased results for ALT. Performed By: #### 2 4325-3 ####ANDI Cotter ([id number])[facility])[address] [place] [address] AST With P-5'-P [Catalytic activity/Vol] 39 U/L Normal 9-39 [facility] Comment on above: Performed By: #### 2 0335-3 ####ANDI Cotter ([id number])[facility])[address] [place] [address] Bilirubin [Mass/Vol] 0.5 mg/dL Normal 0.0-1.2 [facility] Comment on above: Performed By: #### 2 4435-3 ####ANDI Cotter ([id number])[facility])[address]66 [place] [address] Bilirubin.direct [Mass/Vol] 0.2 mg/dL Normal 0.0-0.3 [facility] Comment on above: Performed By: #### 2 4325-3 ####ANDI Cotter ([id number])[facility])[address] [place] [address]169 Protein [Mass/Vol] 7.3 g/dL Normal 6.4-8.2 [facility] Comment on above: Performed By: #### 2 4325-3 ####ANDI Cotter ([id number])[facility])[address] [place] [address] Magnesiumon 12-07-2023 Magnesium [Mass/Vol] 1.98 mg/dL 1.60 - 2.40 mg/dL [facility] Magnesium [Mass/Vol] 1.98 mg/dL Normal 1.60-2.40 [facility] Comment on above: Performed By: #### 1 9123-9 ####ANDI Cotter ([id number])[facility])[address] [place] [address]327 No Panel Informationon 12-06 Interpretation and review of laboratory results Normal [facility] PT Coag (PPP) [Time]on 12-06 INR Coag (PPP) [Relative time] 1.1 {INR} 0.9 - 1.1 [facility] Interpretation and review of laboratory results Abnormal [facility] INR Coag (PPP) [Relative time] 1.1 Normal 0.9-1.1 [facility] Comment on above: Performed By: #### 5 902-2 ####ANDI Cotter ([id number])[facility])[address] [place] [address] 16471 Phosphateon 12-07-2023 Phosphate [Mass/Vol] 3.2 mg/dL Normal 2.5-4.9 [facility] Comment on above: Result Comment: The performance characteristics of phosphorus testing in heparinized plasma have been validated by the individual laboratory site where testing is performed. Testing on heparinized plasma is not approved by the FDA; however, such approval is not necessary. Performed By: #### 2 777-1 ####ANDI Cotter ([id number])[facility])[address] [place] [address] Phosphoruson 12-07-2023 Phosphate [Mass/Vol] 3.2 mg/dL 2.5 - 4 .9 mg/dL [facility] Comment on above: The performance timi acteristics of phosphorus testing in heparinized plasma have been validated by the individual laboratory site where testing is performed. Testing on heparinized plasma is not approved by the FDA; however, such approval is not necessary. Protime-INRon 12-07-2023 PT Coag (PPP) [Time] 12.[address] [facility] Staphylococcus aureus.methic illin resistant isolateon 12-07-2023 MRSA isol Org specific cx Ql (Nose) Abnormal [facility] Comment on above: Performed By: #### 5 2969-3 ####ANDI Cotter ([id number])[facility])[address] [place] [address]307 Basic metabolic 2000 panelon 12-06-2023 Anion gap [Moles/Vol] 17 mmol/L 10 - 2 0 mmol/L [facility] Calcium [Mass/Vol] 9.8 mg/dL 8.6 - 10. 6 mg/dL [facility] Chloride [Moles/Vol] 98 mmol/L 98 - 10 7 mmol/L [facility] CO2 [Moles/Vol] 26 mmol/L 21 - 32 mmol/L [facility] Creatinine [Mass/Vol] 0.70 mg/dL 0.50 - 1.05 mg/dL [facility] eGFR - PINF [facility] Comment on above: Calculations of estuardo mated GFR are performed using the 2020 CKD-EPI Study Refit equation without the race variable for the IDMS-Traceable creatinine methods. https://jasn.asnjournals.org/content//ASN.484691 4646 Glucose [Mass/Vol] 162 mg/dL High 74 - 99 mg/dL [facility] Interpretation and review of laboratory results Abnormal [facility] Potassium [Moles/Vol] 3.8 mmol/L 3.5 - 5.3 mmol/L [facility] Sodium [Moles/Vol] 137 mmol/L 136 - 145 mmol/L [facility] Urea nitrogen [Mass/Vol] 18 mg/dL 6 - 23 mg/dL [facility] Anion gap [Moles/Vol] 17 mmol/L Normal 10-20 [facility] Comment on above: Performed By: #### 2 4321-2 ####ANDI CHAUDHARY L ([id number])[facility])[address] [place] [address] Calcium [Mass/Vol] 9.8 mg/dL Normal 8.6-10.6 [facility] Comment on above: Performed By: #### 2 4321-2 ####ANDI CHAUDHARY L ([id number])[facility])[address] [place] [address] Chloride [Moles/Vol] 98 mmol/L Normal 98-107 [facility] Comment on above: Performed By: #### 2 4321-2 ####ANDI RAJPUTMOTZER L ([id number])[facility])[address] [place] [address] CO2 [Moles/Vol] 26 mmol/L Normal 21-32 [facility] Comment on above: Performed By: #### 2 4321-2 ####ANDI CHAUDHARY L ([id number])[facility])[address] [place] [address] Creatinine [Mass/Vol] 0.70 mg/dL Normal 0.50-1.05 [facility] Comment on above: Performed By: #### 2 4321-2 ####ANDI CHAUDHARY L ([id number])[facility])[address] [place] [address] GFR/1.73 sq M.predicted MDRD (S/P/Bld) [Vol rate/Area] mL/min/{1.73_m2} Normal >60 [facility] Comment on above: Result Comment: Calc ulations of estimated GFR are performed using the 2020 CKD-EPI Study Refit equation without the race variable for the IDMS-Traceable creatinine methods.https://jasn.asnjournals.org/content/early/ N.4085376745 Performed By: #### 2 4321-2 ####ANDI Cotter ([id number])[facility])[address] [place] [address]264 Glucose [Mass/Vol] 162 mg/dL High 74-99 [facility] Comment on above: Performed By: #### 2 4321-2 ####ANDI CHAUDHARY L ([id number])[facility])[address] [place] [address] Potassium [Moles/Vol] 3.8 mmol/L Normal 3.5-5.3 [facility] Comment on above: Performed By: #### 2 4321-2 ####ANDI RAJPUTMOTZER L ([id number])[facility])[address] [place] [address] Sodium [Moles/Vol] 137 mmol/L Normal 136-145 [facility] Comment on above: Performed By: #### 2 4321-2 ####ANDI RAJPUTMOTZER L ([id number])[facility])[address] [place] [address] Urea nitrogen [Mass/Vol] 18 mg/dL Normal 6-23 [facility] Comment on above: Performed By: #### 2 4321-2 ####ANDI RAJPUTMOTZER L ([id number])[facility])[address] [place] [address] Blood type and Indirect anti body screen panel (Bld)on 12-06-2023 ABO group Nom (Bld) A [facility] Blood group antibody screen Ql Negative [facility] D Ag Ql (Bld) Negative [facility] Review your Rh Negat rowena female patient's potential need for Rh Immune Globulin (RhIg)administration. [facility] ABO group Nom (Bld) A Normal [facility] Comment on above: Order Comment: Revie w your Rh Negative female patient's potential need for Rh Immune Globulin (RhIg)administration. Performed By: #### 3 4532-2 ####ANDI Cotter ([id number])[facility] ([facility])[address] [place] [address] Blood group antibody screen Ql Negative Normal [facility] Comment on above: Order Comment: Revie w your Rh Negative female patient's potential need for Rh Immune Globulin (RhIg)administration. Performed By: #### 3 4532-2 ####ANDI Cotter ([id number])[facility] ([facility])[address] [place] [address] D Ag Ql (Bld) Negative [facility] Comment on above: Order Comment: Revie w your Rh Negative female patient's potential need for Rh Immune Globulin (RhIg)administration. Performed By: #### 3 4532-2 ####ANDI Cotter ([id number])[facility] ([facility])[address] [place] [address] CBC W Auto Differential pane l (Bld)on 12-06-2023 Basophils (Bld) [#/Vol] 0.06 10*3/uL [facility] Basophils/100 WBC (Bld) 0.9 % 0.0 - 2.0 % [facility] Eosinophils (Bld) [#/Vol] 0.26 10*3/uL [facility] Eosinophils/100 WBC (Bld) 4.0 % 0.0 - 6.0 % [facility] Erythrocyte distribution width (RBC) [Ratio] 14.1 % 11.5 - 14.5 % [facility] Hematocrit (Bld) [Volume fraction] 40.2 % 36.0 - 46.0 % [facility] Hemoglobin (Bld) [Mass/Vol] 12.8 g/dL 12.0 - 16.0 g/dL [facility] Immature granulocytes (Bld) [#/Vol] 0.04 10*3/uL [facility] Immature granulocytes/100 WBC (Bld) 0.6 % 0.0 - 0.9 % [facility] Comment on above: Immature Granulocyte Count (IG) includes promyelocytes, myelocytes and metamyelocytes but does not include bands. Percent differential counts (%) should be interpreted in the context of the absolute cell counts (cells/UL). Interpretation and review of laboratory results Abnormal [facility] Lymphocytes (Bld) [#/Vol] 2.18 10*3/uL [facility] Lymphocytes/100 WBC (Bld) 33.5 % 13.0 - 44.0 % [facility] MCH (RBC) [Entitic mass] 29.4 pg 26.0 - 34.0 pg [facility] MCHC (RBC) [Mass/Vol] 31.8 g/dL Low 32.0 - 36.0 g/dL [facility] MCV (RBC) [Entitic vol] 92 fL 80 - 100 fL [facility] Monocytes (Bld) [#/Vol] 0.43 10*3/uL [facility] Monocytes/100 WBC (Bld) 6.6 % 2.0 - 10.0 % [facility] Neutrophils (Bld) [#/Vol] 3.54 10*3/uL [facility] Comment on above: Percent differential counts (%) should be interpreted in the context of the absolute cell counts (cells/uL). Neutrophils/100 WBC (Bld) 54.4 % 40.0 - 80.0 % [facility] Nucleated RBC/100 WBC (Bld) [Ratio] 0.0 % [facility] Platelets (Bld) [#/Vol] 261 10*3/uL [facility] RBC (Bld) [#/Vol] 4.35 10*6/uL [facility] WBC (Bld) [#/Vol] 6.5 10*3/uL [facility] Basophils (Bld) [#/Vol] 0.06 x10*3/uL Normal 0.00-0.10 [facility] Comment on above: Performed By: #### 5 7021-8 ####ANDI Cotter ([id number])[facility] ([facility])[address] [place] [address] Basophils/100 WBC (Bld) 0.9 % Normal 0.0-2.0 [facility] Comment on above: Performed By: #### 5 7021-8 ####ANDI Cotter ([id number])[facility])[address] [place] [address] Eosinophils (Bld) [#/Vol] 0.26 x10*3/uL Normal 0.00-0.70 [facility] Comment on above: Performed By: #### 5 7021-8 ####ANDI Cotter ([id number])[facility])[address] [place] [address] Eosinophils/100 WBC (Bld) 4.0 % Normal 0.0-6.0 [facility] Comment on above: Performed By: #### 5 7021-8 ####ANDI Cotter ([id number])[facility])[address] [place] [address] Erythrocyte distribution width (RBC) [Ratio] 14.1 % Normal 11.5-14.5 [facility] Comment on above: Performed By: #### 5 7021-8 ####ANDI Cotter ([id number])[facility])[address] [place] [address] Hematocrit (Bld) [Volume fraction] 40.2 % Normal 36.0-46.0 [facility] Comment on above: Performed By: #### 5 7021-8 ####ANDI Cotter ([id number])[facility])[address] [place] [address] Hemoglobin (Bld) [Mass/Vol] 12.8 g/dL Normal 12.0-16.0 [facility] Comment on above: Performed By: #### 5 7021-8 ####ANDI Cotter ([id number])[facility])[address] [place] [address] Immature granulocytes (Bld) [#/Vol] 0.04 x10*3/uL Normal 0.00-0.70 [facility] Comment on above: Performed By: #### 5 7021-8 ####ANDI CHAUDHARY L ([id number])[facility])[address] [place] [address] Immature granulocytes/100 WBC (Bld) 0.6 % Normal 0.0-0.9 [facility] Comment on above: Result Comment: Debbie ture Granulocyte Count (IG) includes promyelocytes, myelocytes and metamyelocytes but does not include bands. Percent differential counts (%) should be interpreted in the context of the absolute cell counts (cells/UL). Performed By: #### 5 7021-8 ####ANDI Cotter ([id number])[facility] ([facility])[address] [place] [address] Lymphocytes (Bld) [#/Vol] 2.18 x10*3/uL Normal 1.20-4.80 [facility] Comment on above: Performed By: #### 5 7021-8 ####ANDI Cotter ([id number])[facility])[address] [place] [address] Lymphocytes/100 WBC (Bld) 33.5 % Normal 13.0-44.0 [facility] Comment on above: Performed By: #### 5 7021-8 ####ANDI Cotter ([id number])[facility])[address] [place] [address] MCH (RBC) [Entitic mass] 29.4 pg Normal 26.0-34.0 [facility] Comment on above: Performed By: #### 5 7021-8 ####ANDI Cotter ([id number])[facility])[address] [place] [address] MCHC (RBC) [Mass/Vol] 31.8 g/dL Low 32.0-36.0 [facility] Comment on above: Performed By: #### 5 7021-8 ####ANDI Cotter ([id number])[facility])[address] [place] [address] MCV (RBC) [Entitic vol] 92 fL Normal 80-100 [facility] Comment on above: Performed By: #### 5 7021-8 ####ANDI Cotter ([id number])[facility])[address] [place] [address] Monocytes (Bld) [#/Vol] 0.43 x10*3/uL Normal 0.10-1.00 [facility] Comment on above: Performed By: #### 5 7021-8 ####ANDI Cotter ([id number])[facility])[address] [place] [address] Monocytes/100 WBC (Bld) 6.6 % Normal 2.0-10.0 [facility] Comment on above: Performed By: #### 5 7021-8 ####ANDI Cotter ([id number])[facility])[address] [place] [address] Neutrophils (Bld) [#/Vol] 3.54 x10*3/uL Normal 1.20-7.70 [facility] Comment on above: Result Comment: Perc ent differential counts (%) should be interpreted in the context of the absolute cell counts (cells/uL). Performed By: #### 5 7021-8 ####ANDI Cotter ([id number])[facility])[address] [place] [address] Neutrophils/100 WBC (Bld) 54.4 % Normal 40.0-80.0 [facility] Comment on above: Performed By: #### 5 7021-8 ####ANDI Cotter ([id number])[facility])[address] [place] [address] Nucleated RBC/100 WBC (Bld) [Ratio] 0.0 /100 WBCs Normal 0.0-0.0 [facility] Comment on above: Performed By: #### 5 7021-8 ####ANDI RENEEER L ([id number])[facility])[address] [place] [address] Platelets (Bld) [#/Vol] 261 x10*3/uL Normal 150-450 [facility] Comment on above: Performed By: #### 5 7021-8 ####ANDI RAJPUTMOTZER L ([id number])[facility])[address] [place] [address] RBC (Bld) [#/Vol] 4.35 x10*6/uL Normal 4.00-5.20 [facility] Comment on above: Performed By: #### 5 7021-8 ####ANDI RAJPUTMOTZER L ([id number])[facility])[address] [place] [address] WBC (Bld) [#/Vol] 6.5 x10*3/uL Normal 4.4-11.3 [facility] Comment on above: Performed By: #### 5 7021-8 ####ANDI RAJPUTMOTZER L ([id number])[facility])[address] [place] [address] CT ABDOMEN PELVIS W IV CONTR Reny 12-06-2023 CT ABDOMEN PELVIS W IV CONTRAST Normal [facility] CT Abdomen and Pelvis W cont rast [...] Rommel Malagon. This study was interpreted at [place], [place]. MACRO: Critical Finding: See findings. Notification was initiated on 12/06/2023 at 9:31 am by Rommel Malagon. (-OCF-) Instructions: Signed by: Letha Pennington 12/06/2023 12:19 PM Dictation workstation: [id number] [facility] Interpreted By: Letha Pennington and Ohs Zachary STUDY: CT ABDOMEN PELVIS W IV CONTRAST; 12/06/2023 8:39 am INDICATION: Signs/Symptoms:assessme nt of pancreatic pseudocyst s/p cystgastrostomy 11/14. COMPARISON: CT abdomen/pelvis 11/10/2023. ACCESSION NUMBER(S): [id number] ORDERING CLINICIAN: JOHAN BURTON TECHNIQUE: CT of [...] the abdominal wall soft tissues appear normal. [facility] Letha Pennington MD - 12/06/2023 Interpreted By: Letha Pennington and Ohs Zachary STUDY: CT ABDOMEN PELVIS W IV CONTRAST; 12/06/2023 8:39 am INDICATION: Signs/Symptoms:assessme nt of pancreatic pseudocyst s/p cystgastrostomy 11/14. COMPARISON: CT abdomen/pelvis 11/10/2023. ACCESSION NUMBER(S): [id number] ORDERING CLINICIAN: JOHAN BURTON TECHNIQUE: CT of [...] Rommel Malagon. This study was interpreted at [place], [place]. MACRO: Critical Finding: See findings. Notification was initiated on 12/06/2023 at 9:31 am by Rommel Malagon. (-OCF-) Instructions: Signed by: Letha Pennington 12/06/2023 12:19 PM Dictation workstation: [id number] [facility] Work Phone: Radiology Study observation (narrative) [facility] Work Phone: CT Abdomen and Pelvis W cont rast IVOrdered By: Letha Pennington on 12-06-2023 [facility] Work Phone: ECG 12-LEADon 12-06-2023 ECG 12-LEAD Ventricular Rate 111 Atrial Rate 111 P-R Interval 138 QRS Duration 84 Q-T Interval 350 QTC Calculation(Bazett) 476 P [place] 41 R [place] 44 T [place] 40 QRS Count 18 Q Onset 221 P Onset 152 P Offset 207 T Offset 396 QTC Fredericia 429 Diagnosis Sinus tachycardia Otherwise normal ECG When compared with ECG of 10-NOV-2023 13:41, Minimal criteria for Anterior infarct are no longer Present Confirmed by Evan Judge ([id number]) on 12/07/2023 4:49:43 PM Normal [facility] Glucose Test strip manual (B ld) [Mass/Vol]on 12-06-2023 Glucose [Mass/Vol] 138 mg/dL High 74 - 99 mg/dL [facility] Interpretation and review of laboratory results Abnormal [facility] Glucose [Mass/Vol] 138 mg/dL High 74-99 [facility] Comment on above: Performed By: #### 2 341-6 ####ANDI Cotter ([id number])[facility])[address] [place] [address] Glucose [Mass/Vol] 172 mg/dL High 74 - 99 mg/dL [facility] Interpretation and review of laboratory results Abnormal [facility] Glucose [Mass/Vol] 172 mg/dL High 74-99 [facility] Comment on above: Performed By: #### 2 341-6 ####ANDI Cotter ([id number])[facility])[address] [place] [address] Glucose [Mass/Vol] 166 mg/dL High 74 - 99 mg/dL [facility] Interpretation and review of laboratory results Abnormal [facility] Glucose [Mass/Vol] 166 mg/dL High 74-99 [facility] Comment on above: Performed By: #### 2 341-6 ####ANDI Cotter ([id number])[facility])[address] [place] [address] Heparin Assay, UFHon 024 Heparin unfractionated Chromogenic method Qn (PPP) 0.2 See Comment Below for Therapeutic Ranges IU/mL [facility] Heparin unfractionated Chrom ogenic method Qn (PPP)on 12-06-2023 Interpretation and review of laboratory results Normal [facility] The therapeutic reference range for UFH may be either 0.3-0.6 IU/mL or 0.3-0.7 IU/mL based on the clinical setting for anticoagulant therapy and the associated nomogram used. For Heparin dosing guidelines based on clinical scenario and Heparin Assay results, please refer to local Pharmacy and the [facility] Guidelines for Anticoagulation Therapy available on the [facility] intranet at: [email or web address]_Guidelines_[email or web address] oagu.aspx [facility] Heparin.unfractionatedon Heparin unfractionated Chromogenic method Qn (PPP) 0.2 IU/mL Normal See Comment Below for Therapeutic Ranges [facility] Comment on above: Order Comment: Obtai n 4 hours after initiation of heparin infusion. Nursing to release order.The therapeutic reference range for UFH may be either 0.3-0.6 IU/mL or 0.3-0.7 IU/mL based on the clinical setting for anticoagulant therapy and the associated nomogram used. For Heparin dosing guidelines based on clinical scenario and Heparin Assay results, please refer to local Pharmacy and the [facility] Guidelines for Anticoagulation Therapy available on the [facility] intranet at: [email or web address]_Guidelines_for_Anticoagu.aspx Performed By: #### 3 274-8 ####ANDI Cotter ([id number])[facility])[address] [place] [address] Heparin unfractionated Chromogenic method Qn (PPP) 0.2 IU/mL Normal See Comment Below for Therapeutic Ranges [facility] Comment on above: Order Comment: If bl eeding from any site at anytime. Nursing to release order.The therapeutic reference range for UFH may be either 0.3-0.6 IU/mL or 0.3-0.7 IU/mL based on the clinical setting for anticoagulant therapy and the associated nomogram used. For Heparin dosing guidelines based on clinical scenario and Heparin Assay results, please refer to local Pharmacy and the [facility] Guidelines for Anticoagulation Therapy available on the [facility] intranet at: [email or web address]_Guidelines_for_Anticoagu.aspx Performed By: #### 3 274-8 ####ANDI Cotter ([id number])[facility])[address] [place] [address] Magnesiumon 12-06-2023 Magnesium [Mass/Vol] 2.16 mg/dL 1.60 - 2.40 mg/dL [facility] Magnesium [Mass/Vol] 2.16 mg/dL Normal 1.60-2.40 [facility] Comment on above: Performed By: #### 1 9123-9 ####ANDI Cotter ([id number])[facility])[address] [place] [address] Magnesium [Mass/Vol]on 12-05 Interpretation and review of laboratory results Normal [facility] No Panel Informationon 12-05 [facility] PT and aPTT panel Coag (PPP) on 12-06-2023 aPTT Coag (PPP) [Time] 37 s [facility] INR Coag (PPP) [Relative time] 1.0 {INR} 0.9 - 1.1 [facility] Interpretation and review of laboratory results Normal [facility] PT Coag (PPP) [Time] 11.[address] [facility] The APTT is no longe r used for monitoring Unfractionated Heparin Therapy. For monitoring Heparin Therapy, use the Heparin Assay. [facility] aPTT Coag (PPP) [Time] 37 s Normal 27-38 [facility] Comment on above: Order Comment: The A PTT is no longer used for monitoring Unfractionated Heparin Therapy. For monitoring Heparin Therapy, use the Heparin Assay. Performed By: #### 3 4529-8 ####ANDI Cotter ([id number])[facility])[address] [place] [address] INR Coag (PPP) [Relative time] 1.0 Normal 0.9-1.1 [facility] Comment on above: Order Comment: The A PTT is no longer used for monitoring Unfractionated Heparin Therapy. For monitoring Heparin Therapy, use the Heparin Assay. Performed By: #### 3 4529-8 ####ANDI Cotter ([id number])[facility])[address] [place] [address] PT Coag (PPP) [Time] 11.6 s Normal 9.8-12.8 [facility] Comment on above: Order Comment: The A PTT is no longer used for monitoring Unfractionated Heparin Therapy. For monitoring Heparin Therapy, use the Heparin Assay. Performed By: #### 3 4529-8 ####ANDI Cotter ([id number])[facility])[address] [place] [address] Blood type and Indirect anti body screen panel (Bld)on 12-05-2023 ABO group Nom (Bld) A [facility] Blood group antibody screen Ql Negative [facility] D Ag Ql (Bld) Negative [facility] Review your Rh Negat rowena female patient's potential need for Rh Immune Globulin (RhIg)administration. [facility] ABO group Nom (Bld) A Normal [facility] Comment on above: Order Comment: Revie w your Rh Negative female patient's potential need for Rh Immune Globulin (RhIg)administration. Performed By: #### 3 4532-2 ####ANDI Cotter ([id number])[facility] ([facility])[address] [place] [address] Blood group antibody screen Ql Negative Normal [facility] Comment on above: Order Comment: Revie w your Rh Negative female patient's potential need for Rh Immune Globulin (RhIg)administration. Performed By: #### 3 4532-2 ####ANDI Cotter ([id number])[facility] ([facility])[address] [place] [address] [place] [address] D Ag Ql (Bld) Negative Normal [facility] Comment on above: Order Comment: Nemesio martinez your Rh Negative female patient's potential need for Rh Immune Globulin (RhIg)administration. Performed By: #### 3 4532-2 ####ANDI Cotter ([id number])[facility] ([facility])[address] [place] [address] CBC panel Auto (Bld)on 12-04 Erythrocyte distribution width (RBC) [Ratio] 14.3 % 11.5 - 14.5 % [facility] Hematocrit (Bld) [Volume fraction] 38.3 % 36.0 - 46.0 % [facility] Hemoglobin (Bld) [Mass/Vol] 12.1 g/dL 12.0 - 16.0 g/dL [facility] Interpretation and review of laboratory results Abnormal [facility] MCH (RBC) [Entitic mass] 29.1 pg 26.0 - 34.0 pg [facility] MCHC (RBC) [Mass/Vol] 31.6 g/dL Low 32.0 - 36.0 g/dL [facility] MCV (RBC) [Entitic vol] 92 fL 80 - 100 fL [facility] Nucleated RBC/100 WBC (Bld) [Ratio] 0.0 % [facility] Platelets (Bld) [#/Vol] 268 10*3/uL [facility] RBC (Bld) [#/Vol] 4.16 10*6/uL [facility] WBC (Bld) [#/Vol] 8.0 10*3/uL [facility] Erythrocyte distribution width (RBC) [Ratio] 14.3 % Normal 11.5-14.5 [facility] Comment on above: Performed By: #### 5 8410-2 ####ANDI Cotter ([id number])[facility] [place] [address] Hematocrit (Bld) [Volume fraction] 38.3 % Normal 36.0-46.0 [facility] Comment on above: Performed By: #### 5 7610-2 ####ANDI Cotter ([id number])[facility])[address] [place] [address] Hemoglobin (Bld) [Mass/Vol] 12.1 g/dL Normal 12.0-16.0 [facility] Comment on above: Performed By: #### 5 8410-2 ####ANDI Cotter ([id number])[facility])[address] [place] [address] MCH (RBC) [Entitic mass] 29.1 pg Normal 26.0-34.0 [facility] Comment on above: Performed By: #### 5 8410-2 ####ANDI Cotter ([id number])[facility])[address] [place] [address] MCHC (RBC) [Mass/Vol] 31.6 g/dL Low 32.0-36.0 [facility] Comment on above: Performed By: #### 5 8410-2 ####ANDI Cotter ([id number])[facility])[address] [place] [address] MCV (RBC) [Entitic vol] 92 fL Normal 80-100 [facility] Comment on above: Performed By: #### 5 8410-2 ####ANDI Cotter ([id number])[facility])[address] [place] [address] Nucleated RBC/100 WBC (Bld) [Ratio] 0.0 /100 WBCs Normal 0.0-0.0 [facility] Comment on above: Performed By: #### 5 8410-2 ####ANDI Cotter ([id number])[facility])[address] [place] [address] Platelets (Bld) [#/Vol] 268 x10*3/uL Normal 150-450 [facility] Comment on above: Performed By: #### 5 8410-2 ####ANDI Cotter ([id number])[facility])[address] [place] [address] RBC (Bld) [#/Vol] 4.16 x10*6/uL Normal 4.00-5.20 [facility] Comment on above: Performed By: #### 5 8410-2 ####ANDI Cotter ([id number])[facility])[address] [place] [address] WBC (Bld) [#/Vol] 8.0 x10*3/uL Normal 4.4-11.3 [facility] Comment on above: Performed By: #### 5 8410-2 ####ANDI Cotter ([id number])[facility])[address] [place] [address] Comprehensive metabolic 2000 panelon 12-05-2023 Albumin BCP dye [Mass/Vol] 4.0 g/dL 3.4 - 5.0 g/dL [facility] ALP [Catalytic activity/Vol] 93 U/L 33 - 110 U/L [facility] ALT With P-5'-P [Catalytic activity/Vol] 61 U/L High 7 - 45 U/L [facility] Comment on above: Patients treated wit h Sulfasalazine may generate falsely decreased results for ALT. Anion gap [Moles/Vol] 16 mmol/L 10 - 2 0 mmol/L [facility] AST With P-5'-P [Catalytic activity/Vol] 24 U/L 9 - 39 U/L [facility] Bilirubin [Mass/Vol] 0.3 mg/dL 0.0 - 1 .2 mg/dL [facility] Calcium [Mass/Vol] 9.0 mg/dL 8.6 - 10. 6 mg/dL [facility] Chloride [Moles/Vol] 101 mmol/L 98 - 10 7 mmol/L [facility] CO2 [Moles/Vol] 24 mmol/L 21 - 32 mmol/L [facility] Creatinine [Mass/Vol] 0.63 mg/dL 0.50 - 1.05 mg/dL [facility] eGFR - PINF [facility] Comment on above: Calculations of estuardo mated GFR are performed using the 2020 CKD-EPI Study Refit equation without the race variable for the IDMS-Traceable creatinine methods. https://jasn.asnjournals.org/content//ASN.851052 5087 Glucose [Mass/Vol] 250 mg/dL High 74 - 99 mg/dL [facility] Interpretation and review of laboratory results Abnormal [facility] Potassium [Moles/Vol] 4.0 mmol/L 3.5 - 5.3 mmol/L [facility] Protein [Mass/Vol] 7.0 g/dL 6.4 - 8.2 g/dL [facility] Sodium [Moles/Vol] 137 mmol/L 136 - 145 mmol/L [facility] Urea nitrogen [Mass/Vol] 17 mg/dL 6 - 23 mg/dL [facility] Albumin BCP dye [Mass/Vol] 4.0 g/dL Normal 3.4-5.0 [facility] Comment on above: Performed By: #### 2 4323-8 ####ANDI Cotter ([id number])[facility])[address] [place] [address] ALP [Catalytic activity/Vol] 93 U/L Normal 33-110 [facility] Comment on above: Performed By: #### 2 4323-8 ####ANDI Cotter ([id number])[facility])[address] [place] [address] ALT With P-5'-P [Catalytic activity/Vol] 61 U/L High 7-45 [facility] Comment on above: Result Comment: Evelyn ents treated with Sulfasalazine may generate falsely decreased results for ALT. Performed By: #### 2 4323-8 ####ANDI Cotter ([id number])[facility])[address] [place] [address] Anion gap [Moles/Vol] 16 mmol/L Normal 10-20 [facility] Comment on above: Performed By: #### 2 4323-8 ####ANDI Cotter ([id number])[facility])[address] [place] [address] AST With P-5'-P [Catalytic activity/Vol] 24 U/L Normal 9-39 [facility] Comment on above: Performed By: #### 2 4323-8 ####ANDI Cotter ([id number])[facility])[address] [place] [address] Bilirubin [Mass/Vol] 0.3 mg/dL Normal 0.0-1.2 [facility] Comment on above: Performed By: #### 2 4323-8 ####ANDI Cotter ([id number])[facility])[address] [place] [address] Calcium [Mass/Vol] 9.0 mg/dL Normal 8.6-10.6 [facility] Comment on above: Performed By: #### 2 4323-8 ####ANDI Cotter ([id number])[facility])[address] [place] [address] Chloride [Moles/Vol] 101 mmol/L Normal 98-107 [facility] Comment on above: Performed By: #### 2 4323-8 ####ANDI Cotter ([id number])[facility])[address] [place] [address] CO2 [Moles/Vol] 24 mmol/L Normal 21-32 [facility] Comment on above: Performed By: #### 2 4323-8 ####ANDI Cotter ([id number])[facility])[address] [place] [address] Creatinine [Mass/Vol] 0.63 mg/dL Normal 0.50-1.05 [facility] Comment on above: Performed By: #### 2 4323-8 ####ANDI Cotter ([id number])[facility])[address] [place] [address] GFR/1.73 sq M.predicted MDRD (S/P/Bld) [Vol rate/Area] mL/min/{1.73_m2} Normal >60 [facility] Comment on above: Result Comment: Calc ulations of estimated GFR are performed using the 2020 CKD-EPI Study Refit equation without the race variable for the IDMS-Traceable creatinine methods.https://jasn.asnjournals.org/content// N.4863932695 Performed By: #### 2 4323-8 ####ANDI Cotter ([id number])[facility])[address] [place] [address] Glucose [Mass/Vol] 250 mg/dL High 74-99 [facility] Comment on above: Performed By: #### 2 4323-8 ####ANDI Cotter ([id number])[facility])[address] [place] [address] Potassium [Moles/Vol] 4.0 mmol/L Normal 3.5-5.3 [facility] Comment on above: Performed By: #### 2 4323-8 ####ANDI Cotter ([id number])[facility])[address] [place] [address] Protein [Mass/Vol] 7.0 g/dL Normal 6.4-8.2 [facility] Comment on above: Performed By: #### 2 4323-8 ####ANDI Cotter ([id number])[facility])[address] [place] [address] Sodium [Moles/Vol] 137 mmol/L Normal 136-145 [facility] Comment on above: Performed By: #### 2 4323-8 ####ANDI Cotter ([id number])[facility])[address] [place] [address] Urea nitrogen [Mass/Vol] 17 mg/dL Normal 6-23 [facility] Comment on above: Performed By: #### 2 4323-8 ####ANDI Cotter ([id number])[facility])[address] [place] [address] Glucose Test strip manual (B ld) [Mass/Vol]on 12-05-2023 Glucose [Mass/Vol] 204 mg/dL High 74 - 99 mg/dL [facility] Interpretation and review of laboratory results Abnormal [facility] Glucose [Mass/Vol] 204 mg/dL High 74-99 [facility] Comment on above: Performed By: #### 2 341-6 ####ANDI Cotter ([id number])[facility])[address] [place] [address] Glucose [Mass/Vol] 216 mg/dL High 74 - 99 mg/dL [facility] Interpretation and review of laboratory results Abnormal [facility] Glucose [Mass/Vol] 216 mg/dL High 74-99 [facility] Comment on above: Performed By: #### 2 341-6 ####ANDI Cotter ([id number])[facility])[address] [place] [address] PT and aPTT panel Coag (PPP) on 12-05-2023 aPTT Coag (PPP) [Time] 29 s [facility] INR Coag (PPP) [Relative time] 1.1 {INR} 0.9 - 1.1 [facility] Interpretation and review of laboratory results Normal [facility] PT Coag (PPP) [Time] 12.[address] [facility] The APTT is no longe r used for monitoring Unfractionated Heparin Therapy. For monitoring Heparin Therapy, use the Heparin Assay. [facility] aPTT Coag (PPP) [Time] 29 s Normal 27-38 [facility] Comment on above: Order Comment: The A PTT is no longer used for monitoring Unfractionated Heparin Therapy. For monitoring Heparin Therapy, use the Heparin Assay. Performed By: #### 3 4529-8 ####ANDI Cotter ([id number])[facility])[address] [place] [address], [place] [address] INR Coag (PPP) [Relative time] 1.1 Normal 0.9-1.1 [facility] Comment on above: Order Comment: The A PTT is no longer used for monitoring Unfractionated Heparin Therapy. For monitoring Heparin Therapy, use the Heparin Assay. Performed By: #### 3 4529-8 ####ANDI Cotter ([id number])[facility])[address] [place] [address] PT Coag (PPP) [Time] 12.1 s Normal 9.8-12.8 [facility] Comment on above: Order Comment: The A PTT is no longer used for monitoring Unfractionated Heparin Therapy. For monitoring Heparin Therapy, use the Heparin Assay. Performed By: #### 3 4529-8 ####ANDI Cotter ([id number])[facility] [place] [address] CBC panel Auto (Bld)on 11-15 Erythrocyte distribution width (RBC) [Ratio] 14.8 % High 11.5 - 14.5 % [facility] Hematocrit (Bld) [Volume fraction] 35.2 % Low 36.0 - 46.0 % [facility] Hemoglobin (Bld) [Mass/Vol] 10.9 g/dL Low 12.0 - 16.0 g/dL [facility] Interpretation and review of laboratory results Abnormal [facility] MCH (RBC) [Entitic mass] 29.3 pg 26.0 - 34.0 pg [facility] MCHC (RBC) [Mass/Vol] 31.0 g/dL Low 32.0 - 36.0 g/dL [facility] MCV (RBC) [Entitic vol] 95 fL 80 - 100 fL [facility] Nucleated RBC/100 WBC (Bld) [Ratio] 0.0 % [facility] Platelets (Bld) [#/Vol] 213 10*3/uL [facility] RBC (Bld) [#/Vol] 3.72 10*6/uL Low [facility] WBC (Bld) [#/Vol] 12.4 10*3/uL [facility] Erythrocyte distribution width (RBC) [Ratio] 14.8 % High 11.5-14.5 [facility] Comment on above: Performed By: #### 5 8410-2 ####ANDI Cotter ([id number])[facility])[address] [place] [address] Hematocrit (Bld) [Volume fraction] 35.2 % Low 36.0-46.0 [facility] Comment on above: Performed By: #### 5 8410-2 ####ANDI Cotter ([id number])[facility])[address] [place] [address] Hemoglobin (Bld) [Mass/Vol] 10.9 g/dL Low 12.0-16.0 [facility] Comment on above: Performed By: #### 5 8410-2 ####ANDI Cotter ([id number])[facility])[address] [place] [address] MCH (RBC) [Entitic mass] 29.3 pg Normal 26.0-34.0 [facility] Comment on above: Performed By: #### 5 8410-2 ####ANDI Cotter ([id number])[facility])[address] [place] [address] MCHC (RBC) [Mass/Vol] 31.0 g/dL Low 32.0-36.0 [facility] Comment on above: Performed By: #### 5 8410-2 ####ANDI Cotter ([id number])[facility])[address] [place] [address] MCV (RBC) [Entitic vol] 95 fL Normal 80-100 [facility] Comment on above: Performed By: #### 5 8410-2 ####ANDI Cotter ([id number])[facility])[address] [place] [address] Nucleated RBC/100 WBC (Bld) [Ratio] 0.0 /100 WBCs Normal 0.0-0.0 [facility] Comment on above: Performed By: #### 5 8410-2 ####ANDI Cotter ([id number])[facility])[address] [place] [address] Platelets (Bld) [#/Vol] 213 x10*3/uL Normal 150-450 [facility] Comment on above: Performed By: #### 5 8410-2 ####ANDI Cotter ([id number])[facility])[address] [place] [address] RBC (Bld) [#/Vol] 3.72 x10*6/uL Low 4.00-5.20 [facility] Comment on above: Performed By: #### 5 8410-2 ####ANDI Cotter ([id number])[facility])[address] [place] [address] WBC (Bld) [#/Vol] 12.4 x10*3/uL High 4.4-11.3 [facility] Comment on above: Performed By: #### 5 8410-2 ####ANDI Cotter ([id number])[facility])[address] [place] [address] Comprehensive metabolic 2000 panelon 11-15-2023 Albumin BCP dye [Mass/Vol] 3.7 g/dL 3.4 - 5.0 g/dL [facility] ALP [Catalytic activity/Vol] 96 U/L 33 - 110 U/L [facility] ALT With P-5'-P [Catalytic activity/Vol] 71 U/L High 7 - 45 U/L [facility] Comment on above: Patients treated wit h Sulfasalazine may generate falsely decreased results for ALT. Anion gap [Moles/Vol] 17 mmol/L 10 - 2 0 mmol/L [facility] AST With P-5'-P [Catalytic activity/Vol] 33 U/L 9 - 39 U/L [facility] Bilirubin [Mass/Vol] 0.6 mg/dL 0.0 - 1 .2 mg/dL [facility] Calcium [Mass/Vol] 8.9 mg/dL 8.6 - 10. 6 mg/dL [facility] Chloride [Moles/Vol] 99 mmol/L 98 - 10 7 mmol/L [facility] CO2 [Moles/Vol] 23 mmol/L 21 - 32 mmol/L [facility] Creatinine [Mass/Vol] 0.78 mg/dL 0.50 - 1.05 mg/dL [facility] eGFR - PINF [facility] Comment on above: Calculations of estuardo mated GFR are performed using the 2020 CKD-EPI Study Refit equation without the race variable for the IDMS-Traceable creatinine methods. https://jasn.asnjournals.org/content/early/ASN.420048 5621 Glucose [Mass/Vol] 203 mg/dL High 74 - 99 mg/dL [facility] Interpretation and review of laboratory results Abnormal [facility] Potassium [Moles/Vol] 3.8 mmol/L 3.5 - 5.3 mmol/L [facility] Protein [Mass/Vol] 6.2 g/dL Low 6.4 - 8.2 g/dL [facility] Sodium [Moles/Vol] 135 mmol/L Low 136 - 145 mmol/L [facility] Urea nitrogen [Mass/Vol] 6 mg/dL 6 - 23 mg/dL [facility] Albumin BCP dye [Mass/Vol] 3.7 g/dL Normal 3.4-5.0 [facility] Comment on above: Performed By: #### 2 4323-8 ####ANDI Cotter ([id number])[facility])[address] [place] [address] ALP [Catalytic activity/Vol] 96 U/L Normal 33-110 [facility] Comment on above: Performed By: #### 2 4323-8 ####ANDI Cotter ([id number])[facility])[address] [place] [address] ALT With P-5'-P [Catalytic activity/Vol] 71 U/L High 7-45 [facility] Comment on above: Result Comment: Evelyn ents treated with Sulfasalazine may generate falsely decreased results for ALT. Performed By: #### 2 4323-8 ####ANDI Cotter ([id number])[facility])[address] [place] [address] Anion gap [Moles/Vol] 17 mmol/L Normal 10-20 [facility] Comment on above: Performed By: #### 2 4323-8 ####ANDI Cotter ([id number])[facility])[address] [place] [address] AST With P-5'-P [Catalytic activity/Vol] 33 U/L Normal 9-39 [facility] Comment on above: Performed By: #### 2 4323-8 ####ANDI Cotter ([id number])[facility])[address] [place] [address] Bilirubin [Mass/Vol] 0.6 mg/dL Normal 0.0-1.2 [facility] Comment on above: Performed By: #### 2 4323-8 ####ANDI Cotter ([id number])[facility])[address] [place] [address] Calcium [Mass/Vol] 8.9 mg/dL Normal 8.6-10.6 [facility] Comment on above: Performed By: #### 2 4323-8 ####ANDI Cotter ([id number])[facility])[address] [place] [address] Chloride [Moles/Vol] 99 mmol/L Normal 98-107 [facility] Comment on above: Performed By: #### 2 4323-8 ####ANDI Cotter ([id number])[facility])[address] [place] [address] CO2 [Moles/Vol] 23 mmol/L Normal 21-32 [facility] Comment on above: Performed By: #### 2 4323-8 ####ANDI Cotter ([id number])[facility])[address] [place] [address] Creatinine [Mass/Vol] 0.78 mg/dL Normal 0.50-1.05 [facility] Comment on above: Performed By: #### 2 4323-8 ####ANDI CHAUDHARY L ([id number])[facility])[address] [place] [address] GFR/1.73 sq M.predicted MDRD (S/P/Bld) [Vol rate/Area] mL/min/{1.73_m2} Normal >60 [facility] Comment on above: Result Comment: Calc ulations of estimated GFR are performed using the 2020 CKD-EPI Study Refit equation without the race variable for the IDMS-Traceable creatinine methods.https://jasn.asnjournals.org/content// N.8570610051 Performed By: #### 2 4323-8 ####ANDI CHAUDHARY L ([id number])[facility])[address] [place] [address] Glucose [Mass/Vol] 203 mg/dL High 74-99 [facility] Comment on above: Performed By: #### 2 4323-8 ####ANDI CHAUDHARY L ([id number])[facility])[address] [place] [address] Potassium [Moles/Vol] 3.8 mmol/L Normal 3.5-5.3 [facility] Comment on above: Performed By: #### 2 4323-8 ####ANDI CHAUDHARY L ([id number])[facility])[address] [place] [address] Protein [Mass/Vol] 6.2 g/dL Low 6.4-8.2 [facility] Comment on above: Performed By: #### 2 4323-8 ####ANDI CHAUDHARY L ([id number])[facility])[address] [place] [address] Sodium [Moles/Vol] 135 mmol/L Low 136-145 [facility] Comment on above: Performed By: #### 2 4323-8 ####ANDI Cotter ([id number])[facility])[address] [place] [address] Urea nitrogen [Mass/Vol] 6 mg/dL Normal 6-23 [facility] Comment on above: Performed By: #### 2 4323-8 ####ANDI Cotter ([id number])[facility])[address] [place] [address] Glucose Test strip manual (B ld) [Mass/Vol]on 11-15-2023 Glucose [Mass/Vol] 352 mg/dL High 74 - 99 mg/dL [facility] Interpretation and review of laboratory results Abnormal [facility] Glucose [Mass/Vol] 352 mg/dL High 74-99 [facility] Comment on above: Performed By: #### 2 341-6 ####ANDI Cotter ([id number])[facility])[address] [place] [address] Glucose [Mass/Vol] 184 mg/dL High 74 - 99 mg/dL [facility] Interpretation and review of laboratory results Abnormal [facility] Glucose [Mass/Vol] 184 mg/dL High 74-99 [facility] Comment on above: Performed By: #### 2 341-6 ####ANDI Cotter ([id number])[facility])[address] [place] [address] Glucose [Mass/Vol] 201 mg/dL High 74 - 99 mg/dL [facility] Interpretation and review of laboratory results Abnormal [facility] Glucose [Mass/Vol] 201 mg/dL High 74-99 [facility] Comment on above: Performed By: #### 2 341-6 ####ANDI Cotter ([id number])[facility])[address] [place] [address] Glucose [Mass/Vol] 243 mg/dL High 74 - 99 mg/dL [facility] Interpretation and review of laboratory results Abnormal [facility] Glucose [Mass/Vol] 243 mg/dL High 74-99 [facility] Comment on above: Performed By: #### 2 341-6 ####ANDI Cotter ([id number])[facility])[address] [place] [address] CBC panel Auto (Bld)on 11-14 Erythrocyte distribution width (RBC) [Ratio] 14.6 % High 11.5 - 14.5 % [facility] Hematocrit (Bld) [Volume fraction] 35.2 % Low 36.0 - 46.0 % [facility] Hemoglobin (Bld) [Mass/Vol] 11.4 g/dL Low 12.0 - 16.0 g/dL [facility] Interpretation and review of laboratory results Abnormal [facility] MCH (RBC) [Entitic mass] 30.2 pg 26.0 - 34.0 pg [facility] MCHC (RBC) [Mass/Vol] 32.4 g/dL 32.0 - 36.0 g/dL [facility] MCV (RBC) [Entitic vol] 93 fL 80 - 100 fL [facility] Nucleated RBC/100 WBC (Bld) [Ratio] 0.0 % [facility] Platelets (Bld) [#/Vol] 247 10*3/uL [facility] RBC (Bld) [#/Vol] 3.78 10*6/uL Low [facility] WBC (Bld) [#/Vol] 9.0 10*3/uL [facility] Erythrocyte distribution width (RBC) [Ratio] 14.6 % High 11.5-14.5 [facility] Comment on above: Performed By: #### 5 8410-2 ####ANDI Cotter ([id number])[facility])[address] [place] [address] Hematocrit (Bld) [Volume fraction] 35.2 % Low 36.0-46.0 [facility] Comment on above: Performed By: #### 5 8410-2 ####ANDI Cotter ([id number])[facility])[address] [place] [address] Hemoglobin (Bld) [Mass/Vol] 11.4 g/dL Low 12.0-16.0 [facility] Comment on above: Performed By: #### 5 8410-2 ####ANDI Cotter ([id number])[facility])[address] [place] [address] MCH (RBC) [Entitic mass] 30.2 pg Normal 26.0-34.0 [facility] Comment on above: Performed By: #### 5 8410-2 ####ANDI Cotter ([id number])[facility])[address] [place] [address] MCHC (RBC) [Mass/Vol] 32.4 g/dL Normal 32.0-36.0 [facility] Comment on above: Performed By: #### 5 8410-2 ####ANDI Cotter ([id number])[facility])[address] [place] [address] MCV (RBC) [Entitic vol] 93 fL Normal 80-100 [facility] Comment on above: Performed By: #### 5 8410-2 ####ANDI Cotter ([id number])[facility])[address] [place] [address] Nucleated RBC/100 WBC (Bld) [Ratio] 0.0 /100 WBCs Normal 0.0-0.0 [facility] Comment on above: Performed By: #### 5 8410-2 ####ANDI Cotter ([id number])[facility])[address] [place] [address] Platelets (Bld) [#/Vol] 247 x10*3/uL Normal 150-450 [facility] Comment on above: Performed By: #### 5 8410-2 ####ANDI Cotter ([id number])[facility])[address] [place] [address] RBC (Bld) [#/Vol] 3.78 x10*6/uL Low 4.00-5.20 [facility] Comment on above: Performed By: #### 5 8410-2 ####ANDI Cotter ([id number])[facility])[address] [place] [address] WBC (Bld) [#/Vol] 9.0 x10*3/uL Normal 4.4-11.3 [facility] Comment on above: Performed By: #### 5 8410-2 ####ANDI Cotter ([id number])[facility])[address] [place] [address] Erythrocyte distribution width (RBC) [Ratio] 14.3 % 11.5 - 14.5 % [facility] Hematocrit (Bld) [Volume fraction] 34.7 % Low 36.0 - 46.0 % [facility] Hemoglobin (Bld) [Mass/Vol] 10.9 g/dL Low 12.0 - 16.0 g/dL [facility] Interpretation and review of laboratory results Abnormal [facility] MCH (RBC) [Entitic mass] 29.4 pg 26.0 - 34.0 pg [facility] MCHC (RBC) [Mass/Vol] 31.4 g/dL Low 32.0 - 36.0 g/dL [facility] MCV (RBC) [Entitic vol] 94 fL 80 - 100 fL [facility] Nucleated RBC/100 WBC (Bld) [Ratio] 0.0 % [facility] Platelets (Bld) [#/Vol] 266 10*3/uL [facility] RBC (Bld) [#/Vol] 3.71 10*6/uL Low [facility] WBC (Bld) [#/Vol] 5.8 10*3/uL [facility] Erythrocyte distribution width (RBC) [Ratio] 14.3 % Normal 11.5-14.5 [facility] Comment on above: Performed By: #### 5 8410-2 ####ANDI Cotter ([id number])[facility])[address] [place] [address] Hematocrit (Bld) [Volume fraction] 34.7 % Low 36.0-46.0 [facility] Comment on above: Performed By: #### 5 8410-2 ####ANDI Cotter ([id number])[facility])[address] [place] [address] Hemoglobin (Bld) [Mass/Vol] 10.9 g/dL Low 12.0-16.0 [facility] Comment on above: Performed By: #### 5 8410-2 ####ANDI Cotter ([id number])[facility])[address] [place] [address] MCH (RBC) [Entitic mass] 29.4 pg Normal 26.0-34.0 [facility] Comment on above: Performed By: #### 5 8410-2 ####ANDI Cotter ([id number])[facility])[address] [place] [address] MCHC (RBC) [Mass/Vol] 31.4 g/dL Low 32.0-36.0 [facility] Comment on above: Performed By: #### 5 8410-2 ####ANDI Cotter ([id number])[facility])[address] [place] [address] MCV (RBC) [Entitic vol] 94 fL Normal 80-100 [facility] Comment on above: Performed By: #### 5 8410-2 ####ANDI Cotter ([id number])[facility])[address] [place] [address] Nucleated RBC/100 WBC (Bld) [Ratio] 0.0 /100 WBCs Normal 0.0-0.0 [facility] Comment on above: Performed By: #### 5 8410-2 ####ANDI Cotter ([id number])[facility])[address] [place] [address] Platelets (Bld) [#/Vol] 266 x10*3/uL Normal 150-450 [facility] Comment on above: Performed By: #### 5 8410-2 ####ANDI Cotter ([id number])[facility])[address] [place] [address] RBC (Bld) [#/Vol] 3.71 x10*6/uL Low 4.00-5.20 [facility] Comment on above: Performed By: #### 5 8410-2 ####ANDI Cotter ([id number])[facility])[address] [place] [address] WBC (Bld) [#/Vol] 5.8 x10*3/uL Normal 4.4-11.3 [facility] Comment on above: Performed By: #### 5 8410-2 ####ANDI Cotter ([id number])[facility])[address] [place] [address] Comprehensive metabolic 2000 panelon 11-14-2023 Albumin BCP dye [Mass/Vol] 4.0 g/dL 3.4 - 5.0 g/dL [facility] ALP [Catalytic activity/Vol] 106 U/L 33 - 110 U/L [facility] ALT With P-5'-P [Catalytic activity/Vol] 87 U/L High 7 - 45 U/L [facility] Comment on above: Patients treated wit h Sulfasalazine may generate falsely decreased results for ALT. Anion gap [Moles/Vol] 14 mmol/L 10 - 2 0 mmol/L [facility] AST With P-5'-P [Catalytic activity/Vol] 49 U/L High 9 - 39 U/L [facility] Bilirubin [Mass/Vol] 0.5 mg/dL 0.0 - 1 .2 mg/dL [facility] Calcium [Mass/Vol] 9.2 mg/dL 8.6 - 10. 6 mg/dL [facility] Chloride [Moles/Vol] 99 mmol/L 98 - 10 7 mmol/L [facility] CO2 [Moles/Vol] 30 mmol/L 21 - 32 mmol/L [facility] Creatinine [Mass/Vol] 0.86 mg/dL 0.50 - 1.05 mg/dL [facility] GFR/1.73 sq M.predicted among non-blacks MDRD (S/P/Bld) [Vol rate/Area] 83 mL/min/{1.73_m2} - PINF [facility] Comment on above: Calculations of estuardo mated GFR are performed using the 2020 CKD-EPI Study Refit equation without the race variable for the IDMS-Traceable creatinine methods. https://jasn.asnjournals.org/content//ASN.113577 1536 Glucose [Mass/Vol] 254 mg/dL High 74 - 99 mg/dL [facility] Interpretation and review of laboratory results Abnormal [facility] Potassium [Moles/Vol] 3.8 mmol/L 3.5 - 5.3 mmol/L [facility] Protein [Mass/Vol] 6.4 g/dL 6.4 - 8.2 g/dL [facility] Sodium [Moles/Vol] 139 mmol/L 136 - 145 mmol/L [facility] Urea nitrogen [Mass/Vol] 9 mg/dL 6 - 23 mg/dL [facility] Albumin BCP dye [Mass/Vol] 4.0 g/dL Normal 3.4-5.0 [facility] Comment on above: Performed By: #### 2 4323-8 ####ANDI Cotter ([id number])[facility])[address] [place] [address] ALP [Catalytic activity/Vol] 106 U/L Normal 33-110 [facility] Comment on above: Performed By: #### 2 4323-8 ####ANDI Cotetr ([id number])[facility])[address] [place] [address] ALT With P-5'-P [Catalytic activity/Vol] 87 U/L High 7-45 [facility] Comment on above: Result Comment: Evelyn ents treated with Sulfasalazine may generate falsely decreased results for ALT. Performed By: #### 2 4323-8 ####ANDI Cotter ([id number])[facility])[address] [place] [address] Anion gap [Moles/Vol] 14 mmol/L Normal 10-20 [facility] Comment on above: Performed By: #### 2 4323-8 ####ANDI Cotter ([id number])[facility])[address] [place] [address] AST With P-5'-P [Catalytic activity/Vol] 49 U/L High 9-39 [facility] Comment on above: Performed By: #### 2 4323-8 ####ANDI Cotter ([id number])[facility])[address]684 [place] [address] Bilirubin [Mass/Vol] 0.5 mg/dL Normal 0.0-1.2 [facility] Comment on above: Performed By: #### 2 4323-8 ####ANDI CHAUDHARY L ([id number])[facility])[address] [place] [address] Calcium [Mass/Vol] 9.2 mg/dL Normal 8.6-10.6 [facility] Comment on above: Performed By: #### 2 4323-8 ####ANDI CHAUDHARY L ([id number])[facility])[address] [place] [address] Chloride [Moles/Vol] 99 mmol/L Normal 98-107 [facility] Comment on above: Performed By: #### 2 4323-8 ####ANDI CHAUDHARY L ([id number])[facility])[address] [place] [address] CO2 [Moles/Vol] 30 mmol/L Normal 21-32 [facility] Comment on above: Performed By: #### 2 4323-8 ####ANDI Cotter ([id number])[facility] [place] [address] Creatinine [Mass/Vol] 0.86 mg/dL Normal 0.50-1.05 [facility] Comment on above: Performed By: #### 2 4323-8 ####ANDI Cotter ([id number])[facility] [place] [address] Glomerular filtration rate/1.73 sq M.predicted 83 mL/min/1.73m*2 Normal >60 [facility] Comment on above: Result Comment: Calc ulations of estimated GFR are performed using the 2020 CKD-EPI Study Refit equation without the race variable for the IDMS-Traceable creatinine methods.https://jasn.asnjournals.org/content/early/ N.9851080096 Performed By: #### 2 4323-8 ####ANDI Cotter ([id number])[facility] [place] [address] Glucose [Mass/Vol] 254 mg/dL High 74-99 [facility] Comment on above: Performed By: #### 2 4323-8 ####ANDI Cotter ([id number])[facility])[address] [place] [address] Potassium [Moles/Vol] 3.8 mmol/L Normal 3.5-5.3 [facility] Comment on above: Performed By: #### 2 4323-8 ####ANDI Cotter ([id number])[facility] [place] [address] Protein [Mass/Vol] 6.4 g/dL Normal 6.4-8.2 [facility] Comment on above: Performed By: #### 2 4323-8 ####ANDI Cotter ([id number])[facility] [place] [address] Sodium [Moles/Vol] 139 mmol/L Normal 136-145 [facility] Comment on above: Performed By: #### 2 4323-8 ####ANDI CHAUDHARY L ([id number])[facility] [place] [address] Urea nitrogen [Mass/Vol] 9 mg/dL Normal 6-23 [facility] Comment on above: Performed By: #### 2 4323-8 ####ANDI RENEEER L ([id number])[facility] [place] [address] Albumin BCP dye [Mass/Vol] 3.8 g/dL 3.4 - 5.0 g/dL [facility] ALP [Catalytic activity/Vol] 92 U/L 33 - 110 U/L [facility] ALT With P-5'-P [Catalytic activity/Vol] 87 U/L High 7 - 45 U/L [facility] Comment on above: Patients treated wit h Sulfasalazine may generate falsely decreased results for ALT. Anion gap [Moles/Vol] 15 mmol/L 10 - 2 0 mmol/L [facility] AST With P-5'-P [Catalytic activity/Vol] 31 U/L 9 - 39 U/L [facility] Bilirubin [Mass/Vol] 0.5 mg/dL 0.0 - 1 .2 mg/dL [facility] Calcium [Mass/Vol] 9.0 mg/dL 8.6 - 10. 6 mg/dL [facility] Chloride [Moles/Vol] 98 mmol/L 98 - 10 7 mmol/L [facility] CO2 [Moles/Vol] 27 mmol/L 21 - 32 mmol/L [facility] Creatinine [Mass/Vol] 0.79 mg/dL 0.50 - 1.05 mg/dL [facility] eGFR - PINF [facility] Comment on above: Calculations of estuardo mated GFR are performed using the 2020 CKD-EPI Study Refit equation without the race variable for the IDMS-Traceable creatinine methods. https://jasn.asnjournals.org/content//ASN.340068 9771 Glucose [Mass/Vol] 190 mg/dL High 74 - 99 mg/dL [facility] Interpretation and review of laboratory results Abnormal [facility] Potassium [Moles/Vol] 3.4 mmol/L Low 3.5 - 5.3 mmol/L [facility] Protein [Mass/Vol] 6.1 g/dL Low 6.4 - 8.2 g/dL [facility] Sodium [Moles/Vol] 137 mmol/L 136 - 145 mmol/L [facility] Urea nitrogen [Mass/Vol] 9 mg/dL 6 - 23 mg/dL [facility] Albumin BCP dye [Mass/Vol] 3.8 g/dL Normal 3.4-5.0 [facility] Comment on above: Performed By: #### 2 4323-8 ####ANDI Cotter ([id number])[facility] [place] [address] ALP [Catalytic activity/Vol] 92 U/L Normal 33-110 [facility] Comment on above: Performed By: #### 2 4323-8 ####ANDI Cotter ([id number])[facility] [place] [address] ALT With P-5'-P [Catalytic activity/Vol] 87 U/L High 7-45 [facility] Comment on above: Result Comment: Evelyn ents treated with Sulfasalazine may generate falsely decreased results for ALT. Performed By: #### 2 4323-8 ####ANDI Cotter ([id number])[facility] [place] [address] Anion gap [Moles/Vol] 15 mmol/L Normal 10-20 [facility] Comment on above: Performed By: #### 2 4323-8 ####ANDI Cotter ([id number])[facility] [place] [address] AST With P-5'-P [Catalytic activity/Vol] 31 U/L Normal 9-39 [facility] Comment on above: Performed By: #### 2 4323-8 ####ANDI Cotter ([id number])[facility])[address] [place] [address] Bilirubin [Mass/Vol] 0.5 mg/dL Normal 0.0-1.2 [facility] Comment on above: Performed By: #### 2 4323-8 ####ANDI Cotter ([id number])[facility] [place] [address] Calcium [Mass/Vol] 9.0 mg/dL Normal 8.6-10.6 [facility] Comment on above: Performed By: #### 2 4323-8 ####ANDI Cotter ([id number])[facility] [place] [address] Chloride [Moles/Vol] 98 mmol/L Normal 98-107 [facility] Comment on above: Performed By: #### 2 4323-8 ####ANDI Cotter ([id number])[facility] [place] [address] CO2 [Moles/Vol] 27 mmol/L Normal 21-32 [facility] Comment on above: Performed By: #### 2 4323-8 ####ANDI Cotter ([id number])[facility] [place] [address] Creatinine [Mass/Vol] 0.79 mg/dL Normal 0.50-1.05 [facility] Comment on above: Performed By: #### 2 4323-8 ####ANDI Cotter ([id number])[facility] [place] [address] GFR/1.73 sq M.predicted MDRD (S/P/Bld) [Vol rate/Area] mL/min/{1.73_m2} Normal >60 [facility] Comment on above: Result Comment: Calc ulations of estimated GFR are performed using the 2020 CKD-EPI Study Refit equation without the race variable for the IDMS-Traceable creatinine methods.https://jasn.asnjournals.org/content/early// N.1288774258 Performed By: #### 2 4323-8 ####ANDI Cotter ([id number])[facility])[address] [place] [address] Glucose [Mass/Vol] 190 mg/dL High 74-99 [facility] Comment on above: Performed By: #### 2 4323-8 ####ANDI CHAUDHARY L ([id number])[facility] [place] [address] Potassium [Moles/Vol] 3.4 mmol/L Low 3.5-5.3 [facility] Comment on above: Performed By: #### 2 4323-8 ####ANDI CHAUDHARY L ([id number])[facility] [place] [address] Protein [Mass/Vol] 6.1 g/dL Low 6.4-8.2 [facility] Comment on above: Performed By: #### 2 4323-8 ####ANDI RAJPUTMOTZER L ([id number])[facility])[address] [place] [address] Sodium [Moles/Vol] 137 mmol/L Normal 136-145 [facility] Comment on above: Performed By: #### 2 4323-8 ####ANDI RAJPUTMOTZER L ([id number])[facility] [place] [address] Urea nitrogen [Mass/Vol] 9 mg/dL Normal 6-23 [facility] Comment on above: Performed By: #### 2 4323-8 ####ANID RAJPUTMOTZER L ([id number])[facility] [place] [address] ENDOSCOPIC ULTRASOUND (UPPER )on 11-14-2023 ENDOSCOPIC ULTRASOUND (UPPER) Table formatting from the original result was not included. Normal [facility] Endoscopic Ultrasound (Upper )on 11-14-2023 Table formatting [...] to identify any interposed vessels. Using the eeGeoOS stent delivery system, the cavity was punctured [...] successfully placed. Recommendation Follow up with primary director peoplesoft Schedule follow-up procedure for continued treatment ----- [...] Ketamine infusion) who has been admitted to [facility] ED on 11/11/23 for abdominal pain. Recent [...] which was admini (more content not included)... [facility] Work Phone: [facility] Work Phone: Radiology Study observation (narrative) [facility] Work Phone: Glucose Test strip manual (B ld) [Mass/Vol]on 11-14-2023 Glucose [Mass/Vol] 169 mg/dL High 74 - 99 mg/dL [facility] Interpretation and review of laboratory results Abnormal [facility] Glucose [Mass/Vol] 169 mg/dL High 74-99 [facility] Comment on above: Performed By: #### 2 341-6 ####ANDI Cotter ([id number])[facility])[address] [place] [address] Glucose [Mass/Vol] 191 mg/dL High 74 - 99 mg/dL [facility] Interpretation and review of laboratory results Abnormal [facility] Glucose [Mass/Vol] 191 mg/dL High 74-99 [facility] Comment on above: Performed By: #### 2 341-6 ####ANDI Cotter ([id number])[facility])[address] [place] [address] Glucose [Mass/Vol] 243 mg/dL High 74 - 99 mg/dL [facility] Interpretation and review of laboratory results Abnormal [facility] Glucose [Mass/Vol] 243 mg/dL High 74-99 [facility] Comment on above: Performed By: #### 2 341-6 ####ANDI Cotter ([id number])[facility])[address] [place] [address] Bacteria identified Cx Nom ( U)Ordered By: Fatimah Ortega on 11-13-2023 Interpretation and review of laboratory results Abnormal [facility] Streptococcus agalactiae (Group B Streptococcus) is universally susceptible to beta-lactam antibiotics and vancomycin. Routine susceptibility testing not performed. For penicillin allergic patients, please contact the laboratory within 5 days of collection at to request susceptibility testing. [facility] CBC W Auto Differential pane l (Bld)on 11-13-2023 Basophils (Bld) [#/Vol] 0.05 10*3/uL [facility] Basophils/100 WBC (Bld) 0.8 % 0.0 - 2.0 % [facility] Eosinophils (Bld) [#/Vol] 0.33 10*3/uL [facility] Eosinophils/100 WBC (Bld) 5.6 % 0.0 - 6.0 % [facility] Erythrocyte distribution width (RBC) [Ratio] 14.1 % 11.5 - 14.5 % [facility] Hematocrit (Bld) [Volume fraction] 35.0 % Low 36.0 - 46.0 % [facility] Hemoglobin (Bld) [Mass/Vol] 10.9 g/dL Low 12.0 - 16.0 g/dL [facility] Immature granulocytes (Bld) [#/Vol] 0.03 10*3/uL [facility] Immature granulocytes/100 WBC (Bld) 0.5 % 0.0 - 0.9 % [facility] Comment on above: Immature Granulocyte Count (IG) includes promyelocytes, myelocytes and metamyelocytes but does not include bands. Percent differential counts (%) should be interpreted in the context of the absolute cell counts (cells/UL). Interpretation and review of laboratory results Abnormal [facility] Lymphocytes (Bld) [#/Vol] 1.70 10*3/uL [facility] Lymphocytes/100 WBC (Bld) 28.7 % 13.0 - 44.0 % [facility] MCH (RBC) [Entitic mass] 29.1 pg 26.0 - 34.0 pg [facility] MCHC (RBC) [Mass/Vol] 31.1 g/dL Low 32.0 - 36.0 g/dL [facility] MCV (RBC) [Entitic vol] 93 fL 80 - 100 fL [facility] Monocytes (Bld) [#/Vol] 0.49 10*3/uL [facility] Monocytes/100 WBC (Bld) 8.3 % 2.0 - 10.0 % [facility] Neutrophils (Bld) [#/Vol] 3.32 10*3/uL [facility] Comment on above: Percent differential counts (%) should be interpreted in the context of the absolute cell counts (cells/uL). Neutrophils/100 WBC (Bld) 56.1 % 40.0 - 80.0 % [facility] Nucleated RBC/100 WBC (Bld) [Ratio] 0.0 % [facility] Platelets (Bld) [#/Vol] 281 10*3/uL [facility] RBC (Bld) [#/Vol] 3.75 10*6/uL [facility] WBC (Bld) [#/Vol] 5.9 10*3/uL [facility] Basophils (Bld) [#/Vol] 0.05 x10*3/uL Normal 0.00-0.10 [facility] Comment on above: Performed By: #### 5 7021-8 ####ANDI Cotter ([id number])[facility])[address] [place] [address] Basophils/100 WBC (Bld) 0.8 % Normal 0.0-2.0 [facility] Comment on above: Performed By: #### 5 7021-8 ####ANDI Cotter ([id number])[facility])[address] [place] [address] Eosinophils (Bld) [#/Vol] 0.33 x10*3/uL Normal 0.00-0.70 [facility] Comment on above: Performed By: #### 5 7021-8 ####ANDI Cotter ([id number])[facility])[address] [place] [address] Eosinophils/100 WBC (Bld) 5.6 % Normal 0.0-6.0 [facility] Comment on above: Performed By: #### 5 7021-8 ####ANDI Cotter ([id number])[facility])[address] [place] [address] Erythrocyte distribution width (RBC) [Ratio] 14.1 % Normal 11.5-14.5 [facility] Comment on above: Performed By: #### 5 7021-8 ####ANDI CHAUDHARY L ([id number])[facility])[address] [place] [address] Hematocrit (Bld) [Volume fraction] 35.0 % Low 36.0-46.0 [facility] Comment on above: Performed By: #### 5 7021-8 ####ANDI CHAUDHARY L ([id number])[facility])[address] [place] [address] Hemoglobin (Bld) [Mass/Vol] 10.9 g/dL Low 12.0-16.0 [facility] Comment on above: Performed By: #### 5 7021-8 ####ANDI CHAUDHARY L ([id number])[facility])[address] [place] [address] Immature granulocytes (Bld) [#/Vol] 0.03 x10*3/uL Normal 0.00-0.70 [facility] Comment on above: Performed By: #### 5 7021-8 ####ANDI CHAUDHARY L ([id number])[facility])[address] [place] [address] Immature granulocytes/100 WBC (Bld) 0.5 % Normal 0.0-0.9 [facility] Comment on above: Result Comment: Debbie ture Granulocyte Count (IG) includes promyelocytes, myelocytes and metamyelocytes but does not include bands. Percent differential counts (%) should be interpreted in the context of the absolute cell counts (cells/UL). Performed By: #### 5 7021-8 ####ANDI RAJPUTMOTZJYOTI L ([id number])[facility])[address] [place] [address] Lymphocytes (Bld) [#/Vol] 1.70 x10*3/uL Normal 1.20-4.80 [facility] Comment on above: Performed By: #### 5 7021-8 ####ANDI Cotter ([id number])[facility])[address] [place] [address] Lymphocytes/100 WBC (Bld) 28.7 % Normal 13.0-44.0 [facility] Comment on above: Performed By: #### 5 7021-8 ####ANDI Cotter ([id number])[facility])[address] [place] [address] MCH (RBC) [Entitic mass] 29.1 pg Normal 26.0-34.0 [facility] Comment on above: Performed By: #### 5 7021-8 ####ANDI Cotter ([id number])[facility])[address] [place] [address] MCHC (RBC) [Mass/Vol] 31.1 g/dL Low 32.0-36.0 [facility] Comment on above: Performed By: #### 5 7021-8 ####ANDI Cotter ([id number])[facility])[address] [place] [address] MCV (RBC) [Entitic vol] 93 fL Normal 80-100 [facility] Comment on above: Performed By: #### 5 7021-8 ####ANDI Cotter ([id number])[facility])[address] [place] [address] Monocytes (Bld) [#/Vol] 0.49 x10*3/uL Normal 0.10-1.00 [facility] Comment on above: Performed By: #### 5 7021-8 ####ANDI Cotter ([id number])[facility])[address] [place] [address] Monocytes/100 WBC (Bld) 8.3 % Normal 2.0-10.0 [facility] Comment on above: Performed By: #### 5 7021-8 ####ANDI Cotter ([id number])[facility])[address] [place] [address] Neutrophils (Bld) [#/Vol] 3.32 x10*3/uL Normal 1.20-7.70 [facility] Comment on above: Result Comment: Perc ent differential counts (%) should be interpreted in the context of the absolute cell counts (cells/uL). Performed By: #### 5 7021-8 ####ANDI MADRIDTZJYOTI L ([id number])[facility])[address] [place] [address] Neutrophils/100 WBC (Bld) 56.1 % Normal 40.0-80.0 [facility] Comment on above: Performed By: #### 5 7021-8 ####ANDI CHAUDHARY L ([id number])[facility])[address] [place] [address] Nucleated RBC/100 WBC (Bld) [Ratio] 0.0 /100 WBCs Normal 0.0-0.0 [facility] Comment on above: Performed By: #### 5 7021-8 ####ANDI CHAUDHARY L ([id number])[facility])[address] [place] [address] Platelets (Bld) [#/Vol] 281 x10*3/uL Normal 150-450 [facility] Comment on above: Performed By: #### 5 7021-8 ####ANDI RAJPUTMOFIDELINA L ([id number])[facility])[address] [place] [address] RBC (Bld) [#/Vol] 3.75 x10*6/uL Low 4.00-5.20 [facility] Comment on above: Performed By: #### 5 7021-8 ####ANDI RAJPUTMOTZJYOTI L ([id number])[facility])[address] [place] [address] WBC (Bld) [#/Vol] 5.9 x10*3/uL Normal 4.4-11.3 [facility] Comment on above: Performed By: #### 5 7021-8 ####ANDI Cotter ([id number])[facility] [place] [address] Extra Urine Vaca Tubeon 10-21 Extra Tube Hold for add-ons. [facility] Comment on above: Auto resulted. [facility] Glucose Test strip manual (B ld) [Mass/Vol]on 11-13-2023 Glucose [Mass/Vol] 241 mg/dL High 74 - 99 mg/dL [facility] Interpretation and review of laboratory results Abnormal [facility] Glucose [Mass/Vol] 241 mg/dL High 74-99 [facility] Comment on above: Performed By: #### 2 341-6 ####ANDI Cotter ([id number])[facility])[address] [place] [address] Glucose [Mass/Vol] 208 mg/dL High 74 - 99 mg/dL [facility] Interpretation and review of laboratory results Abnormal [facility] Glucose [Mass/Vol] 208 mg/dL High 74-99 [facility] Comment on above: Performed By: #### 2 341-6 ####ANDI Cotter ([id number])[facility])[address] [place] [address] Glucose [Mass/Vol] 206 mg/dL High 74 - 99 mg/dL [facility] Interpretation and review of laboratory results Abnormal [facility] Glucose [Mass/Vol] 206 mg/dL High 74-99 [facility] Comment on above: Performed By: #### 2 341-6 ####ANDI Cotter ([id number])[facility])[address] [place] [address] Glucose [Mass/Vol] 255 mg/dL High 74 - 99 mg/dL [facility] Interpretation and review of laboratory results Abnormal [facility] Glucose [Mass/Vol] 255 mg/dL High 74-99 [facility] Comment on above: Performed By: #### 2 341-6 ####ANDI Cotter ([id number])[facility])[address] [place] [address] Glucose [Mass/Vol] 247 mg/dL High 74 - 99 mg/dL [facility] Interpretation and review of laboratory results Abnormal [facility] Glucose [Mass/Vol] 247 mg/dL High 74-99 [facility] Comment on above: Performed By: #### 2 341-6 ####ANDI Cotter ([id number])[facility])[address] [place] [address] Glucose [Mass/Vol] 210 mg/dL High 74 - 99 mg/dL [facility] Interpretation and review of laboratory results Abnormal [facility] Glucose [Mass/Vol] 210 mg/dL High 74-99 [facility] Comment on above: Performed By: #### 2 341-6 ####ANDI Cotter ([id number])[facility])[address] [place] [address] Heparin Assay, UFHon 024 Heparin unfractionated Chromogenic method Qn (PPP) 0.4 See Comment Below for Therapeutic Ranges IU/mL [facility] Heparin unfractionated Chrom ogenic method Qn (PPP)on 11-13-2023 Interpretation and review of laboratory results Normal [facility] The therapeutic reference range for UFH may be either 0.3-0.6 IU/mL or 0.3-0.7 IU/mL based on the clinical setting for anticoagulant therapy and the associated nomogram used. For Heparin dosing guidelines based on clinical scenario and Heparin Assay results, please refer to local Pharmacy and the [facility] Guidelines for Anticoagulation Therapy available on the [facility] intranet at: [email or web address] [facility] Heparin.unfractionatedon Heparin unfractionated Chromogenic method Qn (PPP) 0.4 IU/mL Normal See Comment Below for Therapeutic Ranges [facility] Comment on above: Order Comment: Obtai n 4 hours after any Heparin dosage change. Nursing to release order.The therapeutic reference range for UFH may be either 0.3-0.6 IU/mL or 0.3-0.7 IU/mL based on the clinical setting for anticoagulant therapy and the associated nomogram used. For Heparin dosing guidelines based on clinical scenario and Heparin Assay results, please refer to local Pharmacy and the [facility] Guidelines for Anticoagulation Therapy available on the [facility] intranet at: [email or web address] Performed By: #### 3 274-8 ####ANDI Cotter ([id number])[facility] [place] [address] Magnesiumon 11-13-2023 Magnesium [Mass/Vol] 1.93 mg/dL 1.60 - 2.40 mg/dL [facility] Magnesium [Mass/Vol] 1.93 mg/dL Normal 1.60-2.40 [facility] Comment on above: Performed By: #### 1 9123-9 ####ANDI Cotter ([id number])[facility] [place] [address] Magnesium [Mass/Vol]on 11-13 Interpretation and review of laboratory results Normal [facility] Renal function 2000 panelon 11-13-2023 Albumin BCP dye [Mass/Vol] 3.9 g/dL 3.4 - 5.0 g/dL [facility] Anion gap [Moles/Vol] 16 mmol/L 10 - 2 0 mmol/L [facility] Calcium [Mass/Vol] 9.6 mg/dL 8.6 - 10. 6 mg/dL [facility] Chloride [Moles/Vol] 95 mmol/L Low 98 - 10 7 mmol/L [facility] CO2 [Moles/Vol] 28 mmol/L 21 - 32 mmol/L [facility] Creatinine [Mass/Vol] 0.75 mg/dL 0.50 - 1.05 mg/dL [facility] eGFR - PINF [facility] Comment on above: Calculations of estuardo mated GFR are performed using the 2020 CKD-EPI Study Refit equation without the race variable for the IDMS-Traceable creatinine methods. https://jasn.asnjournals.org/content/early/ASN.534075 1969 Glucose [Mass/Vol] 202 mg/dL High 74 - 99 mg/dL [facility] Interpretation and review of laboratory results Abnormal [facility] Phosphate [Mass/Vol] 4.3 mg/dL 2.5 - 4 .9 mg/dL [facility] Comment on above: The performance timi acteristics of phosphorus testing in heparinized plasma have been validated by the individual laboratory site where testing is performed. Testing on heparinized plasma is not approved by the FDA; however, such approval is not necessary. Potassium [Moles/Vol] 3.4 mmol/L Low 3.5 - 5.3 mmol/L [facility] Sodium [Moles/Vol] 136 mmol/L 136 - 145 mmol/L [facility] Urea nitrogen [Mass/Vol] 12 mg/dL 6 - 23 mg/dL [facility] Albumin BCP dye [Mass/Vol] 3.9 g/dL Normal 3.4-5.0 [facility] Comment on above: Performed By: #### 2 4362-6 ####ANDI Cotter ([id number])[facility] [place] [address] Anion gap [Moles/Vol] 16 mmol/L Normal 10-20 [facility] Comment on above: Performed By: #### 2 4362-6 ####ANDI Cotter ([id number])[facility] [place] [address] Calcium [Mass/Vol] 9.6 mg/dL Normal 8.6-10.6 [facility] Comment on above: Performed By: #### 2 4362-6 ####ANDI Cotter ([id number])[facility] [place] [address] Chloride [Moles/Vol] 95 mmol/L Low 98-107 [facility] Comment on above: Performed By: #### 2 4362-6 ####ANDI CHAUDHARY L ([id number])[facility])[address] [place] [address] CO2 [Moles/Vol] 28 mmol/L Normal 21-32 [facility] Comment on above: Performed By: #### 2 4362-6 ####ANDI Cotter ([id number])[facility] [place] [address] Creatinine [Mass/Vol] 0.75 mg/dL Normal 0.50-1.05 [facility] Comment on above: Performed By: #### 2 4362-6 ####ANDI Cotter ([id number])[facility] [place] [address] GFR/1.73 sq M.predicted MDRD (S/P/Bld) [Vol rate/Area] mL/min/{1.73_m2} Normal >60 [facility] Comment on above: Result Comment: Calc ulations of estimated GFR are performed using the 2020 CKD-EPI Study Refit equation without the race variable for the IDMS-Traceable creatinine methods.https://jasn.asnjournals.org/content/early/ N.9574504738 Performed By: #### 2 4362-6 ####ANDI Cotter ([id number])[facility] [place] [address] Glucose [Mass/Vol] 202 mg/dL High 74-99 [facility] Comment on above: Performed By: #### 2 4362-6 ####ANDI Cotter ([id number])[facility] [place] [address] Phosphate [Mass/Vol] 4.3 mg/dL Normal 2.5-4.9 [facility] Comment on above: Result Comment: The performance characteristics of phosphorus testing in heparinized plasma have been validated by the individual laboratory site where testing is performed. Testing on heparinized plasma is not approved by the FDA; however, such approval is not necessary. Performed By: #### 2 4362-6 ####ANDI Cotter ([id number])[facility])[address] [place] [address] Potassium [Moles/Vol] 3.4 mmol/L Low 3.5-5.3 [facility] Comment on above: Performed By: #### 2 4362-6 ####ANDI Cotter ([id number])[facility] [place] [address] Sodium [Moles/Vol] 136 mmol/L Normal 136-145 [facility] Comment on above: Performed By: #### 2 4362-6 ####ANDI Cotter ([id number])[facility] [place] [address]99 Urea nitrogen [Mass/Vol] 12 mg/dL Normal 6-23 [facility] Comment on above: Performed By: #### 2 4362-6 ####ANDI Cotter ([id number])[facility])[address] [place] [address] Urine cultureOrdered By: Kadeem Ortega on 11-13-2023 Bacteria identified Cx Nom (U) <10,000 Streptococcus agalactiae (Group B Streptococcus) Abnormal [facility] Bacteria identifiedon 2023 Bacteria identified Cx Nom (U) Abnormal [facility] Comment on above: Performed By: #### 6 30-4 ####ANDI Cotter ([id number])[facility])[id number] [place] [address] CBC panel Auto (Bld)on 11-12 Erythrocyte distribution width (RBC) [Ratio] 14.3 % 11.5 - 14.5 % [facility] Hematocrit (Bld) [Volume fraction] 35.0 % Low 36.0 - 46.0 % [facility] Hemoglobin (Bld) [Mass/Vol] 11.1 g/dL Low 12.0 - 16.0 g/dL [facility] Interpretation and review of laboratory results Abnormal [facility] MCH (RBC) [Entitic mass] 29.0 pg 26.0 - 34.0 pg [facility] MCHC (RBC) [Mass/Vol] 31.7 g/dL Low 32.0 - 36.0 g/dL [facility] MCV (RBC) [Entitic vol] 91 fL 80 - 100 fL [facility] Nucleated RBC/100 WBC (Bld) [Ratio] 0.0 % [facility] Platelets (Bld) [#/Vol] 255 10*3/uL [facility] RBC (Bld) [#/Vol] 3.83 10*6/uL Low [facility] WBC (Bld) [#/Vol] 5.3 10*3/uL [facility] Erythrocyte distribution width (RBC) [Ratio] 14.3 % Normal 11.5-14.5 [facility] Comment on above: Performed By: #### 5 8410-2 ####ANDI Cotter ([id number])[facility])[address] [place] [address] Hematocrit (Bld) [Volume fraction] 35.0 % Low 36.0-46.0 [facility] Comment on above: Performed By: #### 5 8410-2 ####ANDI Cotter ([id number])[facility])[address] [place] [address] Hemoglobin (Bld) [Mass/Vol] 11.1 g/dL Low 12.0-16.0 [facility] Comment on above: Performed By: #### 5 8410-2 ####ANDI Cotter ([id number])[facility])[address] [place] [address] MCH (RBC) [Entitic mass] 29.0 pg Normal 26.0-34.0 [facility] Comment on above: Performed By: #### 5 8410-2 ####ANDI Cotter ([id number])[facility])[address] [place] [address] MCHC (RBC) [Mass/Vol] 31.7 g/dL Low 32.0-36.0 [facility] Comment on above: Performed By: #### 5 8410-2 ####ANDI Cotter ([id number])[facility])[address] [place] [address] MCV (RBC) [Entitic vol] 91 fL Normal 80-100 [facility] Comment on above: Performed By: #### 5 8410-2 ####ANDI Cotter ([id number])[facility])[address] [place] [address] Nucleated RBC/100 WBC (Bld) [Ratio] 0.0 /100 WBCs Normal 0.0-0.0 [facility] Comment on above: Performed By: #### 5 8410-2 ####ANDI Cotter ([id number])[facility])[address] [place] [address] Platelets (Bld) [#/Vol] 255 x10*3/uL Normal 150-450 [facility] Comment on above: Performed By: #### 5 8410-2 ####ANDI Cotter ([id number])[facility])[address] [place] [address] RBC (Bld) [#/Vol] 3.83 x10*6/uL Low 4.00-5.20 [facility] Comment on above: Performed By: #### 5 8410-2 ####ANDI Cotter ([id number])[facility])[address] [place] [address] WBC (Bld) [#/Vol] 5.3 x10*3/uL Normal 4.4-11.3 [facility] Comment on above: Performed By: #### 5 8410-2 ####ANDI Cotter ([id number])[facility])[address] [place] [address] Glucose Test strip manual (B ld) [Mass/Vol]on 11-12-2023 Glucose [Mass/Vol] 229 mg/dL High 74 - 99 mg/dL [facility] Interpretation and review of laboratory results Abnormal [facility] Glucose [Mass/Vol] 229 mg/dL High 74-99 [facility] Comment on above: Performed By: #### 2 341-6 ####ANDI Cotter ([id number])[facility])[address] [place] [address] Glucose [Mass/Vol] 294 mg/dL High 74 - 99 mg/dL [facility] Interpretation and review of laboratory results Abnormal [facility] Glucose [Mass/Vol] 294 mg/dL High 74-99 [facility] Comment on above: Performed By: #### 2 341-6 ####ANDI Cotter ([id number])[facility])[address] [place] [address] Glucose [Mass/Vol] 275 mg/dL High 74 - 99 mg/dL [facility] Comment on above: RN/ NOTIFIED Interpretation and review of laboratory results Abnormal [facility] Glucose [Mass/Vol] 275 mg/dL High 74-99 [facility] Comment on above: Result Comment: KAY/Abdoulaye Dillon NOTIFIED Performed By: #### 2 341-6 ####ANDI Cotter ([id number])[facility])[address] [place] [address] Glucose [Mass/Vol] 214 mg/dL High 74 - 99 mg/dL [facility] Interpretation and review of laboratory results Abnormal [facility] Glucose [Mass/Vol] 214 mg/dL High 74-99 [facility] Comment on above: Performed By: #### 2 341-6 ####ANDI Cotter ([id number])[facility])[address] [place] [address] Glucose [Mass/Vol] 191 mg/dL High 74 - 99 mg/dL [facility] Interpretation and review of laboratory results Abnormal [facility] Glucose [Mass/Vol] 191 mg/dL High 74-99 [facility] Comment on above: Performed By: #### 2 341-6 ####ANDI Cotter ([id number])[facility])[address] [place] [address] Heparin Assay, UFHon 024 Heparin unfractionated Chromogenic method Qn (PPP) 0.4 See Comment Below for Therapeutic Ranges IU/mL [facility] Heparin unfractionated Chromogenic method Qn (PPP) 0.2 See Comment Below for Therapeutic Ranges IU/mL [facility] Heparin unfractionated Chromogenic method Qn (PPP) 0.3 See Comment Below for Therapeutic Ranges IU/mL [facility] Heparin unfractionated Chromogenic method Qn (PPP) 0.2 See Comment Below for Therapeutic Ranges IU/mL [facility] Heparin unfractionated Chromogenic method Qn (PPP) 0.2 See Comment Below for Therapeutic Ranges IU/mL [facility] Heparin unfractionated Chrom ogenic method Qn (PPP)on 11-12-2023 Interpretation and review of laboratory results Normal [facility] The therapeutic reference range for UFH may be either 0.3-0.6 IU/mL or 0.3-0.7 IU/mL based on the clinical setting for anticoagulant therapy and the associated nomogram used. For Heparin dosing guidelines based on clinical scenario and Heparin Assay results, please refer to local Pharmacy and the [facility] Guidelines for Anticoagulation Therapy available on the [facility] intranet at: [email or web address] [email or web address]_[facility]_Guidelines_for_Antic oagu.aspx [facility] Interpretation and review of laboratory results Normal [facility] The therapeutic reference range for UFH may be either 0.3-0.6 IU/mL or 0.3-0.7 IU/mL based on the clinical setting for anticoagulant therapy and the associated nomogram used. For Heparin dosing guidelines based on clinical scenario and Heparin Assay results, please refer to local Pharmacy and [facility] Guidelines for Anticoagulation Therapy available on the [facility] intranet at: [email or web address] [email or web address]_[facility] ls_Guidelines_for_Antic oagu.aspx [facility] Interpretation and review of laboratory results Normal [facility] The therapeutic reference range for UFH may be either 0.3-0.6 IU/mL or 0.3-0.7 IU/mL based on the clinical setting for anticoagulant therapy and the associated nomogram used. For Heparin dosing guidelines based on clinical scenario and Heparin Assay results, please refer to local Pharmacy and the [facility] Guidelines for Anticoagulation Therapy available on the [facility] intranet at: [email or web address] [email or web address]_[facility] ls_Guidelines_for_Antic oagu.aspx [facility] Interpretation and review of laboratory results Normal [facility] The therapeutic reference range for UFH may be either 0.3-0.6 IU/mL or 0.3-0.7 IU/mL based on the clinical setting for anticoagulant therapy and the associated nomogram used. For Heparin dosing guidelines based on clinical scenario and Heparin Assay results, please refer to local Pharmacy and the [facility] Guidelines for Anticoagulation Therapy available on the [facility] intranet at: [email or web address]/Pharmacy/P [email or web address]/[place]_[facility] ls_Guidelines_for_Antic oagu.aspx [facility] Interpretation and review of laboratory results Normal [facility] The therapeutic reference range for UFH may be either 0.3-0.6 IU/mL or 0.3-0.7 IU/mL based on the clinical setting for anticoagulant therapy and the associated nomogram used. For Heparin dosing guidelines based on clinical scenario and Heparin Assay results, please refer to local Pharmacy and the [facility] Guidelines for Anticoagulation Therapy available on the [facility] intranet at: [email or web address] [email or web address]/Pharmacy/P ages/[place]_[facility]_Guidelines_for_Antic oagu.aspx [facility] Heparin.unfractionatedon Heparin unfractionated Chromogenic method Qn (PPP) 0.4 IU/mL Normal See Comment Below for Therapeutic Ranges [facility] Comment on above: Order Comment: Obtai n 4 hours after any Heparin dosage change. Nursing to release order.The therapeutic reference range for UFH may be either 0.3-0.6 IU/mL or 0.3-0.7 IU/mL based on the clinical setting for anticoagulant therapy and the associated nomogram used. For Heparin dosing guidelines based on clinical scenario and Heparin Assay results, please refer to local Pharmacy and [facility] Guidelines for Anticoagulation Therapy available on the [facility] intranet at: [email or web address]/Pharmacy/[email or web address]_ spital_Guidelines_for_Anticoagu.aspx Performed By: #### 3 274-8 ####ANDI Cotter ([id number])[facility])[address] [place] [address] Heparin unfractionated Chromogenic method Qn (PPP) 0.2 IU/mL Normal See Comment Below for Therapeutic Ranges [facility] Comment on above: Order Comment: Obtai n 4 hours after any Heparin dosage change. Nursing to release order.The therapeutic reference range for UFH may be either 0.3-0.6 IU/mL or 0.3-0.7 IU/mL based on the clinical setting for anticoagulant therapy and the associated nomogram used. For Heparin dosing guidelines based on clinical scenario and Heparin Assay results, please refer to local Pharmacy and the [facility] Guidelines for Anticoagulation Therapy available on the [facility] intranet at: [email or web address]/Pharmacy/Pages/[place]_[facility]_Guidelines_for_Anticoagu.aspx Performed By: #### 3 274-8 ####ANDI Cotter ([id number])[facility])[address] [place] [address] Heparin unfractionated Chromogenic method Qn (PPP) 0.3 IU/mL Normal See Comment Below for Therapeutic Ranges [facility] Comment on above: Order Comment: Obtai n 4 hours after any Heparin dosage change. Nursing to release order.The therapeutic reference range for UFH may be either 0.3-0.6 IU/mL or 0.3-0.7 IU/mL based on the clinical setting for anticoagulant therapy and the associated nomogram used. For Heparin dosing guidelines based on clinical scenario and Heparin Assay results, please refer to local Pharmacy and [facility] Guidelines for Anticoagulation Therapy available on the [facility] intranet at: [email or web address]://[email or web address]/Pharmacy/Pages/[place]_ spitals_Guidelines_for_Anticoagu.aspx Performed By: #### 3 274-8 ####ANDI Cotter ([id number])[facility])[address] [place] [address] Heparin unfractionated Chromogenic method Qn (PPP) 0.2 IU/mL Normal See Comment Below for Therapeutic Ranges [facility] Comment on above: Order Comment: Obtai n 4 hours after any Heparin dosage change. Nursing to release order.The therapeutic reference range for UFH may be either 0.3-0.6 IU/mL or 0.3-0.7 IU/mL based on the clinical setting for anticoagulant therapy and the associated nomogram used. For Heparin dosing guidelines based on clinical scenario and Heparin Assay results, please refer to local Pharmacy and the [facility] Guidelines for Anticoagulation Therapy available on the [facility] intranet at: [email or web address]/Pharmacy/[email or web address]_ spitals_Guidelines_for_Anticoagu.aspx Performed By: #### 3 274-8 ####ANDI Cotter ([id number])[facility])[address] [place] [address] Magnesiumon 11-12-2023 Magnesium [Mass/Vol] 1.81 mg/dL 1.60 - 2.40 mg/dL [facility] Magnesium [Mass/Vol] 1.81 mg/dL Normal 1.60-2.40 [facility] Comment on above: Performed By: #### 1 9123-9 ####ANDI Cotter ([id number])[facility])[address] [place] [address] Magnesium [Mass/Vol]on 11-12 Interpretation and review of laboratory results Normal [facility] No Panel Informationon 11-12 [facility] Renal function 2000 panelon 11-12-2023 Albumin BCP dye [Mass/Vol] 4.0 g/dL 3.4 - 5.0 g/dL [facility] Anion gap [Moles/Vol] 16 mmol/L 10 - 2 0 mmol/L [facility] Calcium [Mass/Vol] 8.8 mg/dL 8.6 - 10. 6 mg/dL [facility] Chloride [Moles/Vol] 98 mmol/L 98 - 10 7 mmol/L [facility] CO2 [Moles/Vol] 26 mmol/L 21 - 32 mmol/L [facility] Creatinine [Mass/Vol] 0.68 mg/dL 0.50 - 1.05 mg/dL [facility] eGFR - PINF [facility] Comment on above: Calculations of estuardo mated GFR are performed using the 2020 CKD-EPI Study Refit equation without the race variable for the IDMS-Traceable creatinine methods. https://jasn.asnjournals.org/content//ASN.461273 1988 Glucose [Mass/Vol] 205 mg/dL High 74 - 99 mg/dL [facility] Interpretation and review of laboratory results Abnormal [facility] Phosphate [Mass/Vol] 2.8 mg/dL 2.5 - 4 .9 mg/dL [facility] Comment on above: The performance timi acteristics of phosphorus testing in heparinized plasma have been validated by the individual laboratory site where testing is performed. Testing on heparinized plasma is not approved by the FDA; however, such approval is not necessary. Potassium [Moles/Vol] 3.6 mmol/L 3.5 - 5.3 mmol/L [facility] Sodium [Moles/Vol] 136 mmol/L 136 - 145 mmol/L [facility] Urea nitrogen [Mass/Vol] 9 mg/dL 6 - 23 mg/dL [facility] Albumin BCP dye [Mass/Vol] 4.0 g/dL Normal 3.4-5.0 [facility] Comment on above: Performed By: #### 2 4362-6 ####ANDI Cotter ([id number])[facility])[address] [place] [address] Anion gap [Moles/Vol] 16 mmol/L Normal 10-20 [facility] Comment on above: Performed By: #### 2 4362-6 ####ANDI Cotter ([id number])[facility])[address] [place] [address] Calcium [Mass/Vol] 8.8 mg/dL Normal 8.6-10.6 [facility] Comment on above: Performed By: #### 2 4362-6 ####ANDI oCtter ([id number])[facility])[address] [place] [address] Chloride [Moles/Vol] 98 mmol/L Normal 98-107 [facility] Comment on above: Performed By: #### 2 4362-6 ####ANDI Cotter ([id number])[facility])[address] [place] [address] CO2 [Moles/Vol] 26 mmol/L Normal 21-32 [facility] Comment on above: Performed By: #### 2 4362-6 ####ANDI Cotter ([id number])[facility])[address] [place] [address] Creatinine [Mass/Vol] 0.68 mg/dL Normal 0.50-1.05 [facility] Comment on above: Performed By: #### 2 4362-6 ####ANDI Cotter ([id number])[facility])[address] [place] [address] GFR/1.73 sq M.predicted MDRD (S/P/Bld) [Vol rate/Area] mL/min/{1.73_m2} Normal >60 [facility] Comment on above: Result Comment: Calc ulations of estimated GFR are performed using the 2020 CKD-EPI Study Refit equation without the race variable for the IDMS-Traceable creatinine methods.https://jasn.asnjournals.org/content// N.6469403256 Performed By: #### 2 4362-6 ####ANDI Cotter ([id number])[facility])[address] [place] [address] Glucose [Mass/Vol] 205 mg/dL High 74-99 [facility] Comment on above: Performed By: #### 2 4362-6 ####ANDI Cotter ([id number])[facility])[address] [place] [address] Phosphate [Mass/Vol] 2.8 mg/dL Normal 2.5-4.9 [facility] Comment on above: Result Comment: The performance characteristics of phosphorus testing in heparinized plasma have been validated by the individual laboratory site where testing is performed. Testing on heparinized plasma is not approved by the FDA; however, such approval is not necessary. Performed By: #### 2 4362-6 ####ANDI Cotter ([id number])[facility])[address] [place] [address] Potassium [Moles/Vol] 3.6 mmol/L Normal 3.5-5.3 [facility] Comment on above: Performed By: #### 2 4362-6 ####ANDI Cotter ([id number])[facility])[address] [place] [address] Sodium [Moles/Vol] 136 mmol/L Normal 136-145 [facility] Comment on above: Performed By: #### 2 4362-6 ####ANDI Cotter ([id number])[facility])[address] [place] [address] Urea nitrogen [Mass/Vol] 9 mg/dL Normal 6-23 [facility] Comment on above: Performed By: #### 2 4362-6 ####ANDI Cotter ([id number])[facility])[address] [place] [address] Urinalysis complete W Reflex Culture panel (U)on 11-12-2023 Appearance (U) Clear Clear [facility] Bilirubin (U) [Mass/Vol] Negative NEGATIVE [facility] Color (U) Light-Yellow Light-Yellow , Yellow, Dark-Yellow [facility] Glucose Auto test strip (U) [Mass/Vol] 70 (1+) Abnormal Normal mg/dL [facility] Interpretation and review of laboratory results Abnormal [facility] Ketones (U) [Mass/Vol] Negative NEGATIVE mg/dL [facility] Leukocyte esterase Auto test strip Ql (U) Negative NEGATIVE [facility] Nitrite Auto test strip Ql (U) Negative NEGATIVE [facility] pH (U) 7.0 [pH] 5.0, 5.5, 6.0, 6.5, 7.0, 7.5, 8.0 [facility] Protein (U) [Mass/Vol] Negative NEGATIVE, 10 (TRACE), 20 (TRACE) mg/dL [facility] RBC (U) [#/Vol] Negative NEGATIVE [facility] Specific gravity (U) [Rel density] 1.008 1.005 - 1.035 [facility] Urobilinogen (U) [Mass/Vol] Normal Normal mg/dL [facility] Appearance (U) Clear Normal Clear [facility] Comment on above: Performed By: #### 5 8077-9 ####ANDI Cotter ([id number])[facility])[address] [place] [address] Bilirubin (U) [Mass/Vol] Negative Normal NEGATIVE [facility] Comment on above: Performed By: #### 5 8077-9 ####ANDI Cotter ([id number])[facility])[address] [place] [address] [place] [address] Color (U) Light-Yellow Normal Light-Yellow , Yellow, Dark-Yellow [facility] Comment on above: Performed By: #### 5 8077-9 ####ANDI Cotter ([id number])[facility])[address] [place] [address] Glucose Auto test strip (U) [Mass/Vol] 70 (1+) Abnormal Normal [facility] Comment on above: Performed By: #### 5 8077-9 ####ANDI Cotter ([id number])[facility])[address] [place] [address] Ketones (U) [Mass/Vol] Negative Normal NEGATIVE [facility] Comment on above: Performed By: #### 5 8077-9 ####ANDI Cotter ([id number])[facility])[address] [place] [address] Leukocyte esterase Auto test strip Ql (U) Negative Normal NEGATIVE [facility] Comment on above: Performed By: #### 5 8077-9 ####ANDI Cotter ([id number])[facility])[address] [place] [address] Nitrite Auto test strip Ql (U) Negative Normal NEGATIVE [facility] Comment on above: Performed By: #### 5 8077-9 ####ANDI Cotter ([id number])[facility])[address] [place] [address] pH (U) 7.0 [pH] Normal 5.0, 5.5, 6.0, 6.5, 7.0, 7.5, 8.0 [facility] Comment on above: Performed By: #### 5 8077-9 ####ANDI Cotter ([id number])[facility])[address] [place] [address] Protein (U) [Mass/Vol] Negative Normal NEGATIVE, 10 (TRACE), 20 (TRACE) [facility] Comment on above: Performed By: #### 5 8077-9 ####ANDI Cotter ([id number])[facility])[address] [place] [address] RBC (U) [#/Vol] Negative Normal NEGATIVE [facility] Comment on above: Performed By: #### 5 8077-9 ####ANDI Cotter ([id number])[facility])[address] [place] [address] Specific gravity (U) [Rel density] 1.008 Normal 1.005-1.035 [facility] Comment on above: Performed By: #### 5 8077-9 ####ANDI Cotter ([id number])[facility])[address] [place] [address] Urobilinogen (U) [Mass/Vol] Normal Normal Normal [facility] Comment on above: Performed By: #### 5 8077-9 ####ANDI Cotter ([id number])[facility])[address] [place] [address]99 CBC panel Auto (Bld)on 11-11 Erythrocyte distribution width (RBC) [Ratio] 14.2 % 11.5 - 14.5 % [facility] Hematocrit (Bld) [Volume fraction] 33.3 % Low 36.0 - 46.0 % [facility] Hemoglobin (Bld) [Mass/Vol] 11.1 g/dL Low 12.0 - 16.0 g/dL [facility] Interpretation and review of laboratory results Abnormal [facility] MCH (RBC) [Entitic mass] 29.2 pg 26.0 - 34.0 pg [facility] MCHC (RBC) [Mass/Vol] 33.3 g/dL 32.0 - 36.0 g/dL [facility] MCV (RBC) [Entitic vol] 88 fL 80 - 100 fL [facility] Nucleated RBC/100 WBC (Bld) [Ratio] 0.0 % [facility] Platelets (Bld) [#/Vol] 243 10*3/uL [facility] RBC (Bld) [#/Vol] 3.80 10*6/uL [facility] WBC (Bld) [#/Vol] 4.9 10*3/uL [facility] Erythrocyte distribution width (RBC) [Ratio] 14.2 % Normal 11.5-14.5 [facility] Comment on above: Order Comment: Obtai n prior to initiation of Heparin Therapy if not obtained in prior 24 hours - Nursing to release order. Performed By: #### 5 8410-2 ####ANDI Cotter ([id number])[facility])[address] [place] [address] Hematocrit (Bld) [Volume fraction] 33.3 % Low 36.0-46.0 [facility] Comment on above: Order Comment: Obtai n prior to initiation of Heparin Therapy if not obtained in prior 24 hours - Nursing to release order. Performed By: #### 5 8410-2 ####ANDI Cotter ([id number])[facility] [facility] [place] [address]165 Hemoglobin (Bld) [Mass/Vol] 11.1 g/dL Low 12.0-16.0 [facility] Comment on above: Order Comment: Obtai n prior to initiation of Heparin Therapy if not obtained in prior 24 hours - Nursing to release order. Performed By: #### 5 8410-2 ####ANDI Cotter ([id number])[facility])[id number] [place] [address] 72191 MCH (RBC) [Entitic mass] 29.2 pg Normal 26.0-34.0 [facility] Comment on above: Order Comment: Obtai n prior to initiation of Heparin Therapy if not obtained in prior 24 hours - Nursing to release order. Performed By: #### 5 8410-2 ####ANDI Cotter ([id number])[facility])[address] [place] [address] 75552 MCHC (RBC) [Mass/Vol] 33.3 g/dL Normal 32.0-36.0 [facility] Comment on above: Order Comment: Obtai n prior to initiation of Heparin Therapy if not obtained in prior 24 hours - Nursing to release order. Performed By: #### 5 8410-2 ####ANDI Cotter ([id number])[facility])[address] [place] [address] MCV (RBC) [Entitic vol] 88 fL Normal 80-100 [facility] Comment on above: Order Comment: Obtai n prior to initiation of Heparin Therapy if not obtained in prior 24 hours - Nursing to release order. Performed By: #### 5 8410-2 ####ANDI Cotter ([id number])[facility])[address] [place] [address] Nucleated RBC/100 WBC (Bld) [Ratio] 0.0 /100 WBCs Normal 0.0-0.0 [facility] Comment on above: Order Comment: Obtai n prior to initiation of Heparin Therapy if not obtained in prior 24 hours - Nursing to release order. Performed By: #### 5 8410-2 ####ANDI Cotter ([id number])[facility])[address] [place] [address] Platelets (Bld) [#/Vol] 243 x10*3/uL Normal 150-450 [facility] Comment on above: Order Comment: Obtai n prior to initiation of Heparin Therapy if not obtained in prior 24 hours - Nursing to release order. Performed By: #### 5 8410-2 ####ANDI Cotter ([id number])[facility])[address] [place] [address] RBC (Bld) [#/Vol] 3.80 x10*6/uL Low 4.00-5.20 [facility] Comment on above: Order Comment: Obtai n prior to initiation of Heparin Therapy if not obtained in prior 24 hours - Nursing to release order. Performed By: #### 5 8410-2 ####ANDI Cotter ([id number])[facility])[address] [place] [address] WBC (Bld) [#/Vol] 4.9 x10*3/uL Normal 4.4-11.3 [facility] Comment on above: Order Comment: Obtai n prior to initiation of Heparin Therapy if not obtained in prior 24 hours - Nursing to release order. Performed By: #### 5 8410-2 ####ANDI Cotter ([id number])[facility])[address] [place] [address] Coagulation surface inducedo n 11-11-2023 aPTT Coag (PPP) [Time] 29 s Normal 27-38 [facility] Comment on above: Order Comment: Prior to initiating heparin if not obtained in prior 48 hours. Nursing to release order.The APTT is no longer used for monitoring Unfractionated Heparin Therapy. For monitoring Heparin Therapy, use the Heparin Assay. Performed By: #### 1 4979-9 ####ANDI Cotter ([id number])[facility])[address] [place] [address]57[address] Coagulation tissue factor in ducedon 11-11-2023 PT Coag (PPP) [Time] 13.6 s High 9.8-12.8 [facility] Comment on above: Order Comment: If nawaf earl has not had PT + INR in the last 24 hours. Nursing to release order. Performed By: #### 5 902-2 ####ADNI Cotter ([id number])[facility])[address] [place] [address] DRUG SCREEN,URINEon 11-11-19 Amphetamines Screen Ql (U) Negative Normal Presumptive Negative [facility] Comment on above: Order Comment: Drug screen results are presumptive and should not be used to assesscompliance with prescribed medication. Contact the performing [facility] laboratoryto add-on definitive confirmatory testing if [...] Performed By: #### D RUG3 ####ANDI Cotter ([id number])[facility])[address] [place] [address] Barbiturates Screen Ql (U) Negative Normal Presumptive Negative [facility] Comment on above: Order Comment: Drug screen results are presumptive and should not be used to assesscompliance with prescribed medication. Contact the performing [facility] laboratoryto add-on definitive confirmatory testing if [...] Performed By: #### D RUG3 ####ANDI Cotter ([id number])[facility])[address] [place], [place] [address] Benzodiazepines Ql (U) Negative Normal Presumptive Negative [facility] Comment on above: Order Comment: Drug screen results are presumptive and should not be used to assesscompliance with prescribed medication. Contact the performing [facility] laboratoryto add-on definitive confirmatory testing if [...] NG/ML Performed By: #### D RUG3 ####ANDI RENEEER L ([id number])[facility])[address] [place] [address] Benzoylecgonine Screen Ql (U) Negative Normal Presumptive Negative [facility] Comment on above: Order Comment: Drug screen results are presumptive and should not be used to assesscompliance with prescribed medication. Contact the performing [facility] laboratoryto add-on definitive confirmatory testing if [...] NG/ML Performed By: #### D RUG3 ####ANDI RAJPUTMOTZER L ([id number])[facility])[address] [place], [place] [address] Cannabinoids Screen Ql (U) Negative Normal Presumptive Negative [facility] Comment on above: Order Comment: Drug screen results are presumptive and should not be used to assesscompliance with prescribed medication. Contact the performing [facility] laboratoryto add-on definitive confirmatory testing if [...] Performed By: #### D RUG3 ####ANDI Cotter ([id number])[facility])[address] [place] [address] fentaNYL+Norfentanyl Screen Ql (U) Negative Normal Presumptive Negative [facility] Comment on above: Order Comment: Drug screen results are presumptive and should not be used to assesscompliance with prescribed medication. Contact the performing [facility] laboratoryto add-on definitive confirmatory testing if [...] Performed By: #### D RUG3 ####ANDI Cotter ([id number])[facility])[address] [place], [place] [address] Opiates Screen Ql (U) Positive Abnormal Presum ptive Negative [facility] Comment on above: Order Comment: Drug screen results are presumptive and should not be used to assesscompliance with prescribed medication. Contact the performing [facility] laboratoryto add-on definitive confirmatory testing if [...] Performed By: #### D RUG3 ####ANDI Cotter ([id number])[facility])[address] [place] [address] oxyCODONE+oxyMORphone Screen Ql (U) Negative Normal Presumptive Negative [facility] Comment on above: Order Comment: Drug screen results are presumptive and should not be used to assesscompliance with prescribed medication. Contact the performing [facility] laboratoryto add-on definitive confirmatory testing if [...] oxymorphone. Performed By: #### Mariaa RUG3 ####ANDI Ctoter ([id number])[facility])[address] [place] [address] Phencyclidine Ql (U) Negative Normal Presump tive Negative [facility] Comment on above: Order Comment: Drug screen results are presumptive and should not be used to assesscompliance with prescribed medication. Contact the performing [facility] laboratoryto add-on definitive confirmatory testing if [...] been reported with dextromethorphan. Performed By: #### D RUG3 ####ANDI Cotter ([id number])[facility])[address] [place] [address] 34598 Drug Screen, Urineon 024 Amphetamines Screen Ql (U) Negative Presumptive Negative [facility] Comment on above: CUTOFF LEVEL: 500 NG /ML Cross-reactivity has been reported with high concentrations of the following drugs: buproprion, chloroquine, chlorpromazine, ephedrine, mephentermine, fenfluramine, phentermine, phenylpropanolamine, pseudoephedrine, and propranolol. Barbiturates Screen Ql (U) Negative Presumptive Negative [facility] Comment on above: CUTOFF LEVEL: 200 NG /ML Benzodiazepines Ql (U) Negative Presumptive Negative [facility] Comment on above: CUTOFF LEVEL: 200 NG /ML Benzoylecgonine Screen Ql (U) Negative Presumptive Negative [facility] Comment on above: CUTOFF LEVEL: 150 NG /ML Cannabinoids Screen Ql (U) Negative Presumptive Negative [facility] Comment on above: CUTOFF LEVEL: 50 NG/ ML fentaNYL+Norfentanyl Screen Ql (U) Negative Presumptive Negative [facility] Comment on above: CUTOFF LEVEL: 5 NG/M L Interpretation and review of laboratory results Abnormal [facility] Opiates Screen Ql (U) Positive Abnormal Presum ptive Negative [facility] Comment on above: CUTOFF LEVEL: 300 NG /ML The opiate screen does not detect fentanyl, meperidine, or tramadol. Oxycodone is not consistently detected (refer to Oxycodone Screen, Urine result). oxyCODONE+oxyMORphone Screen Ql (U) Negative Presumptive Negative [facility] Comment on above: CUTOFF LEVEL: 100 NG /ML This test will accurately detect both oxycodone and oxymorphone. Phencyclidine Ql (U) Negative Presump tive Negative [facility] Comment on above: CUTOFF LEVEL: 25 NG/ ML Cross-reactivity has been reported with dextromethorphan. Drug screen results are presumptive and should not be used to assess compliance with prescribed medication. Contact the performing [facility] laboratory to add-on definitive confirmatory testing [...] be directed to the laboratory medical directors. [facility] Glucose Test strip manual (B ld) [Mass/Vol]on 11-11-2023 Glucose [Mass/Vol] 231 mg/dL High 74 - 99 mg/dL [facility] Interpretation and review of laboratory results Abnormal [facility] Glucose [Mass/Vol] 231 mg/dL High 74-99 [facility] Comment on above: Performed By: #### 2 341-6 ####ANDI Cotter ([id number])[facility])[address] [place] [address] Glucose [Mass/Vol] 188 mg/dL High 74 - 99 mg/dL [facility] Interpretation and review of laboratory results Abnormal [facility] Glucose [Mass/Vol] 188 mg/dL High 74-99 [facility] Comment on above: Performed By: #### 2 341-6 ####ANDI Cotter ([id number])[facility])[address] [place] [address] Glucose [Mass/Vol] 244 mg/dL High 74 - 99 mg/dL [facility] Interpretation and review of laboratory results Abnormal [facility] Glucose [Mass/Vol] 244 mg/dL High 74-99 [facility] Comment on above: Performed By: #### 2 341-6 ####ANDI RAJPUTMOTZJYOTI L ([id number])[facility])[address] [place] [address] Glucose [Mass/Vol] 179 mg/dL High 74 - 99 mg/dL [facility] Interpretation and review of laboratory results Abnormal [facility] Glucose [Mass/Vol] 179 mg/dL High 74-99 [facility] Comment on above: Performed By: #### 2 341-6 ####ANDI Cotter ([id number])[facility])[address] [place] [address]16[address] Glucose [Mass/Vol] 158 mg/dL High 74 - 99 mg/dL [facility] Interpretation and review of laboratory results Abnormal [facility] Glucose [Mass/Vol] 158 mg/dL High 74-99 [facility] Comment on above: Performed By: #### 2 341-6 ####ANDI Cotter ([id number])[facility])[address] [place] [address]394 Glucose [Mass/Vol] 154 mg/dL High 74 - 99 mg/dL [facility] Interpretation and review of laboratory results Abnormal [facility] Glucose [Mass/Vol] 154 mg/dL High 74-99 [facility] Comment on above: Performed By: #### 2 341-6 ####ANDI Cotter ([id number])[facility])[address] [place] [address] 96139 Heparin Assay, UFHon 024 Heparin unfractionated Chromogenic method Qn (PPP) 0.2 See Comment Below for Therapeutic Ranges IU/mL [facility] Heparin unfractionated Chrom ogenic method Qn (PPP)on 11-11-2023 Interpretation and review of laboratory results Normal [facility] The therapeutic reference range for UFH may be either 0.3-0.6 IU/mL or 0.3-0.7 IU/mL based on the clinical setting for anticoagulant therapy and the associated nomogram used. For Heparin dosing guidelines based on clinical scenario and Heparin Assay results, please refer to local Pharmacy and the [facility] Guidelines for Anticoagulation Therapy available on the [facility] intranet at: [email or web address] ls_Guidelines_for_Antic oagu.aspx [facility] Heparin.unfractionatedon Heparin unfractionated Chromogenic method Qn (PPP) 0.2 IU/mL Normal See Comment Below for Therapeutic Ranges [facility] Comment on above: Order Comment: Obtai n 4 hours after any Heparin dosage change. Nursing to release order.The therapeutic reference range for UFH may be either 0.3-0.6 IU/mL or 0.3-0.7 IU/mL based on the clinical setting for anticoagulant therapy and the associated nomogram used. For Heparin dosing guidelines based on clinical scenario and Heparin Assay results, please refer to local Pharmacy and the [facility] Guidelines for Anticoagulation Therapy available on the [facility] intranet at: [email or web address] america – tulsaAlticastuk [email or web address]_[facility]_Guidelines_for_Anticoagu.aspx Performed By: #### 3 274-8 ####ANDI Cotter ([id number])[facility])[address] [place] [address] Heparin unfractionated Chromogenic method Qn (PPP) 0.2 IU/mL Normal See Comment Below for Therapeutic Ranges [facility] Comment on above: Order Comment: Obtai n 4 hours after initiation of heparin infusion. Nursing to release order.The therapeutic reference range for UFH may be either 0.3-0.6 IU/mL or 0.3-0.7 IU/mL based on the clinical setting for anticoagulant therapy and the associated nomogram used. For Heparin dosing guidelines based on clinical scenario and Heparin Assay results, please refer to local Pharmacy and the [facility] Guidelines for Anticoagulation Therapy available on the [facility] intranet at: [email or web address] [email or web address] [email or web address]/Pages/[place]_[facility] Englandtals_Guidelines_for_Anticoagu.aspx Performed By: #### 3 274-8 ####ANDI Cotter ([id number])[facility])[address] [place] [address] No Panel Informationon 11-11 [facility] PT Coag (PPP) [Time]on 11-11 INR Coag (PPP) [Relative time] 1.2 {INR} High 0.9 - 1.1 [facility] Interpretation and review of laboratory results Abnormal [facility] INR Coag (PPP) [Relative time] 1.2 High 0.9-1.1 [facility] Comment on above: Order Comment: If nawaf earl has not had PT + INR in the last 24 hours. Nursing to release order. Performed By: #### 5 902-2 ####ANDI Cotter ([id number])[facility])[address] [place] [address] Protime-INRon 11-11-2023 PT Coag (PPP) [Time] 13.[address] [facility] aPTT - baselineon 11-11-2023 aPTT Coag (PPP) [Time] 29 s [facility] aPTT Coag (PPP) [Time]on Interpretation and review of laboratory results Normal [facility] The APTT is no longe r used for monitoring Unfractionated Heparin Therapy. For monitoring Heparin Therapy, use the Heparin Assay. [facility] Blood Gas Lactic Acid, Venou sOrdered By: Yamilex Leung on 11-10-2023 Lactate (BldV) [Moles/Vol] 2.0 mmol/L 0.4 - 2.0 mmol/L [facility] CBC W Auto Differential pane l (Bld)on 11-10-2023 Basophils (Bld) [#/Vol] 0.07 10*3/uL [facility] Basophils/100 WBC (Bld) 0.6 % 0.0 - 2.0 % [facility] Eosinophils (Bld) [#/Vol] 0.17 10*3/uL [facility] Eosinophils/100 WBC (Bld) 1.5 % 0.0 - 6.0 % [facility] Erythrocyte distribution width (RBC) [Ratio] 14.1 % 11.5 - 14.5 % [facility] Hematocrit (Bld) [Volume fraction] 39.5 % 36.0 - 46.0 % [facility] Hemoglobin (Bld) [Mass/Vol] 13.1 g/dL 12.0 - 16.0 g/dL [facility] Immature granulocytes (Bld) [#/Vol] 0.06 10*3/uL [facility] Immature granulocytes/100 WBC (Bld) 0.5 % 0.0 - 0.9 % [facility] Comment on above: Immature Granulocyte Count (IG) includes promyelocytes, myelocytes and metamyelocytes but does not include bands. Percent differential counts (%) should be interpreted in the context of the absolute cell counts (cells/UL). Interpretation and review of laboratory results Abnormal [facility] Lymphocytes (Bld) [#/Vol] 1.66 10*3/uL [facility] Lymphocytes/100 WBC (Bld) 14.8 % 13.0 - 44.0 % [facility] MCH (RBC) [Entitic mass] 28.7 pg 26.0 - 34.0 pg [facility] MCHC (RBC) [Mass/Vol] 33.2 g/dL 32.0 - 36.0 g/dL [facility] MCV (RBC) [Entitic vol] 86 fL 80 - 100 fL [facility] Monocytes (Bld) [#/Vol] 0.70 10*3/uL [facility] Monocytes/100 WBC (Bld) 6.2 % 2.0 - 10.0 % [facility] Neutrophils (Bld) [#/Vol] 8.57 10*3/uL High [facility] Comment on above: Percent differential counts (%) should be interpreted in the context of the absolute cell counts (cells/uL). Neutrophils/100 WBC (Bld) 76.4 % 40.0 - 80.0 % [facility] Nucleated RBC/100 WBC (Bld) [Ratio] 0.0 % [facility] Platelets (Bld) [#/Vol] 298 10*3/uL [facility] RBC (Bld) [#/Vol] 4.57 10*6/uL [facility] WBC (Bld) [#/Vol] 11.2 10*3/uL [facility] Basophils (Bld) [#/Vol] 0.07 x10*3/uL Normal 0.00-0.10 [facility] Comment on above: Performed By: #### 5 7021-8 ####ANDI Cotter ([id number])[facility])[address] [place] [address] Basophils/100 WBC (Bld) 0.6 % Normal 0.0-2.0 [facility] Comment on above: Performed By: #### 5 7021-8 ####ANDI Cotter ([id number])[facility])[address] [place] [address] Eosinophils (Bld) [#/Vol] 0.17 x10*3/uL Normal 0.00-0.70 [facility] Comment on above: Performed By: #### 5 7021-8 ####ANDI Cotter ([id number])[facility])[address] [place] [address] Eosinophils/100 WBC (Bld) 1.5 % Normal 0.0-6.0 [facility] Comment on above: Performed By: #### 5 7021-8 ####ANDI Cotter ([id number])[facility])[address] [place] [address] Erythrocyte distribution width (RBC) [Ratio] 14.1 % Normal 11.5-14.5 [facility] Comment on above: Performed By: #### 5 7021-8 ####ANDI Cotter ([id number])[facility])[address] [place] [address] Hematocrit (Bld) [Volume fraction] 39.5 % Normal 36.0-46.0 [facility] Comment on above: Performed By: #### 5 7021-8 ####ANDI Cotter ([id number])[facility])[address] [place] [address] Hemoglobin (Bld) [Mass/Vol] 13.1 g/dL Normal 12.0-16.0 [facility] Comment on above: Performed By: #### 5 7021-8 ####ANDI RENEEER L ([id number])[facility])[address] [place] [address] Immature granulocytes (Bld) [#/Vol] 0.06 x10*3/uL Normal 0.00-0.70 [facility] Comment on above: Performed By: #### 5 7021-8 ####ANDI RAJPUTMOTZJYOTI L ([id number])[facility])[address] [place] [address] Immature granulocytes/100 WBC (Bld) 0.5 % Normal 0.0-0.9 [facility] Comment on above: Result Comment: Debbie ture Granulocyte Count (IG) includes promyelocytes, myelocytes and metamyelocytes but does not include bands. Percent differential counts (%) should be interpreted in the context of the absolute cell counts (cells/UL). Performed By: #### 5 7021-8 ####ANDI CHAUDHARY L ([id number])[facility])[address] [place] [address]64[address] Lymphocytes (Bld) [#/Vol] 1.66 x10*3/uL Normal 1.20-4.80 [facility] Comment on above: Performed By: #### 5 7021-8 ####ANDI CHAUDHARY L ([id number])[facility])[address] [place] [address] Lymphocytes/100 WBC (Bld) 14.8 % Normal 13.0-44.0 [facility] Comment on above: Performed By: #### 5 7021-8 ####ANDI RAJPUTMOFIDELINA L ([id number])[facility])[address] [place] [address] MCH (RBC) [Entitic mass] 28.7 pg Normal 26.0-34.0 [facility] Comment on above: Performed By: #### 5 7021-8 ####ANDI CHAUDHARY L ([id number])[facility])[address] [place] [address] MCHC (RBC) [Mass/Vol] 33.2 g/dL Normal 32.0-36.0 [facility] Comment on above: Performed By: #### 5 7021-8 ####ANDI Cotter ([id number])[facility])[address] [place] [address] MCV (RBC) [Entitic vol] 86 fL Normal 80-100 [facility] Comment on above: Performed By: #### 5 7021-8 ####ANDI Cotter ([id number])[facility])[address] [place] [address] Monocytes (Bld) [#/Vol] 0.70 x10*3/uL Normal 0.10-1.00 [facility] Comment on above: Performed By: #### 5 7021-8 ####ANDI Cotter ([id number])[facility])[address] [place] [address] Monocytes/100 WBC (Bld) 6.2 % Normal 2.0-10.0 [facility] Comment on above: Performed By: #### 5 7021-8 ####ANDI Cotter ([id number])[facility])[address] [place] [address] 75193 Neutrophils (Bld) [#/Vol] 8.57 x10*3/uL High 1.20-7.70 [facility] Comment on above: Result Comment: Perc ent differential counts (%) should be interpreted in the context of the absolute cell counts (cells/uL). Performed By: #### 5 7021-8 ####ANDI Cotter ([id number])[facility])[address] [place] [address] Neutrophils/100 WBC (Bld) 76.4 % Normal 40.0-80.0 [facility] Comment on above: Performed By: #### 5 7021-8 ####ANDI Cotter ([id number])[facility])[address] [place] [address] Nucleated RBC/100 WBC (Bld) [Ratio] 0.0 /100 WBCs Normal 0.0-0.0 [facility] Comment on above: Performed By: #### 5 7021-8 ####ANDI RENEEER L ([id number])[facility])[address] [place] [address] Platelets (Bld) [#/Vol] 298 x10*3/uL Normal 150-450 [facility] Comment on above: Performed By: #### 5 7021-8 ####ANDI RAJPUTMOEDELMIRAER L ([id number])[facility])[address] [place] [address] RBC (Bld) [#/Vol] 4.57 x10*6/uL Normal 4.00-5.20 [facility] Comment on above: Performed By: #### 5 7021-8 ####ANDI RAJPUTMOTZER L ([id number])[facility])[address] [place] [address] WBC (Bld) [#/Vol] 11.2 x10*3/uL Normal 4.4-11.3 [facility] Comment on above: Performed By: #### 5 7021-8 ####ANDI MADRIDTZER L ([id number])[facility] [place] [address] CT ABDOMEN PELVIS W IV CONTR Reny 11-10-2023 CT ABDOMEN PELVIS W IV CONTRAST Normal [facility] CT Abdomen and Pelvis W cont rast [...] Nancy Garrido. The study was interpreted at [facility] in [facility]. MACRO: none Signed by: Marie Fisher 11/10/2023 10:20 PM Dictation workstation: [id number] [facility] Interpreted By: Marie Fisher and Liller Gregory STUDY: CT ABDOMEN PELVIS W IV CONTRAST; 11/10/2023 8:52 pm INDICATION: Signs/Symptoms:pancreat itis, pseudocyst. 39-year-old female with history of pancreatitis, necrotizing pancreatitis and pseudocyst presents to ED for pseudocyst and epigastric pain. Patient had MRCP yesterday and started having intense epigastric pain today. COMPARISON: CT abdomen pelvis 07/05/2023, MRCP 11/09/2023 ACCESSION NUMBER(S): [id number] ORDERING CLINICIAN: KHURRAM STUART TECHNIQUE: CT of [...] abdomen pelvis 07/05/2023, MRCP 11/09/2023 ACCESSION NUMBER(S): [id number] ORDERING CLINICIAN: KHURRAM STUART TECHNIQUE: CT of [...] Nancy Garrido. The study was interpreted at [facility] in [facility]. MACRO: none Signed by: Marie Fisher 11/10/2023 10:20 PM Dictation workstation: [id number] [facility] Work Phone: Radiology Study observation (narrative) [facility] Work Phone: CT Abdomen and Pelvis W cont rast IVOrdered By: Marie Fisher on 11-10-2023 [facility] Work Phone: Comprehensive metabolic 2000 panelon 11-10-2023 Albumin BCP dye [Mass/Vol] 4.3 g/dL 3.4 - 5.0 g/dL [facility] ALP [Catalytic activity/Vol] 79 U/L 33 - 110 U/L [facility] ALT With P-5'-P [Catalytic activity/Vol] 72 U/L High 7 - 45 U/L [facility] Comment on above: Patients treated wit h Sulfasalazine may generate falsely decreased results for ALT. Anion gap [Moles/Vol] 19 mmol/L 10 - 2 0 mmol/L [facility] AST With P-5'-P [Catalytic activity/Vol] 51 U/L High 9 - 39 U/L [facility] Bilirubin [Mass/Vol] 0.4 mg/dL 0.0 - 1 .2 mg/dL [facility] Calcium [Mass/Vol] 9.7 mg/dL 8.6 - 10. 6 mg/dL [facility] Chloride [Moles/Vol] 101 mmol/L 98 - 10 7 mmol/L [facility] CO2 [Moles/Vol] 22 mmol/L 21 - 32 mmol/L [facility] Creatinine [Mass/Vol] 0.77 mg/dL 0.50 - 1.05 mg/dL [facility] eGFR - PINF [facility] Comment on above: Calculations of estuardo mated GFR are performed using the 2020 CKD-EPI Study Refit equation without the race variable for the IDMS-Traceable creatinine methods. https://jasn.asnjournals.org/content//ASN.293868 7623 Glucose [Mass/Vol] 171 mg/dL High 74 - 99 mg/dL [facility] Interpretation and review of laboratory results Abnormal [facility] Potassium [Moles/Vol] 3.7 mmol/L 3.5 - 5.3 mmol/L [facility] Protein [Mass/Vol] 7.5 g/dL 6.4 - 8.2 g/dL [facility] Sodium [Moles/Vol] 138 mmol/L 136 - 145 mmol/L [facility] Urea nitrogen [Mass/Vol] 18 mg/dL 6 - 23 mg/dL [facility] Albumin BCP dye [Mass/Vol] 4.3 g/dL Normal 3.4-5.0 [facility] Comment on above: Performed By: #### 2 4323-8 ####ANDI Cotter ([id number])[facility])[address] [place] [address] ALP [Catalytic activity/Vol] 79 U/L Normal 33-110 [facility] Comment on above: Performed By: #### 2 4323-8 ####ANDI Cotter ([id number])[facility] [place] [address] ALT With P-5'-P [Catalytic activity/Vol] 72 U/L High 7-45 [facility] Comment on above: Result Comment: Evelyn ents treated with Sulfasalazine may generate falsely decreased results for ALT. Performed By: #### 2 4323-8 ####ANDI Cotter ([id number])[facility])[address] [place] [address] Anion gap [Moles/Vol] 19 mmol/L Normal 10-20 [facility] Comment on above: Performed By: #### 2 4323-8 ####ANDI Cotter ([id number])[facility])[address] [place] [address] AST With P-5'-P [Catalytic activity/Vol] 51 U/L High 9-39 [facility] Comment on above: Performed By: #### 2 4323-8 ####ANDI Cotter ([id number])[facility] [place] [address] Bilirubin [Mass/Vol] 0.4 mg/dL Normal 0.0-1.2 [facility] Comment on above: Performed By: #### 2 4323-8 ####ANDI Cotter ([id number])[facility])[address] [place] [address] Calcium [Mass/Vol] 9.7 mg/dL Normal 8.6-10.6 [facility] Comment on above: Performed By: #### 2 4323-8 ####ANDI Cotter ([id number])[facility] [place] [address] Chloride [Moles/Vol] 101 mmol/L Normal 98-107 [facility] Comment on above: Performed By: #### 2 4323-8 ####ANDI Cotter ([id number])[facility] [place] [address] CO2 [Moles/Vol] 22 mmol/L Normal 21-32 [facility] Comment on above: Performed By: #### 2 4323-8 ####ANDI Cotter ([id number])[facility] [place] [address] Creatinine [Mass/Vol] 0.77 mg/dL Normal 0.50-1.05 [facility] Comment on above: Performed By: #### 2 4323-8 ####ANDI Cotter ([id number])[facility])[address] [place] [address] GFR/1.73 sq M.predicted MDRD (S/P/Bld) [Vol rate/Area] mL/min/{1.73_m2} Normal >60 [facility] Comment on above: Result Comment: Calc ulations of estimated GFR are performed using the 2020 CKD-EPI Study Refit equation without the race variable for the IDMS-Traceable creatinine methods.https://jasn.asnjournals.org/content/early/ N.0055765931 Performed By: #### 2 4323-8 ####ANDI Cotter ([id number])[facility])[address] [place] [address] Glucose [Mass/Vol] 171 mg/dL High 74-99 [facility] Comment on above: Performed By: #### 2 4323-8 ####ANDI Cotter ([id number])[facility])[address] [place] [address] Potassium [Moles/Vol] 3.7 mmol/L Normal 3.5-5.3 [facility] Comment on above: Performed By: #### 2 4323-8 ####ANDI Cotter ([id number])[facility])[address] [place] [address] Protein [Mass/Vol] 7.5 g/dL Normal 6.4-8.2 [facility] Comment on above: Performed By: #### 2 4323-8 ####ANDI Cotter ([id number])[facility])[address] [place] [address] Sodium [Moles/Vol] 138 mmol/L Normal 136-145 [facility] Comment on above: Performed By: #### 2 4323-8 ####ANDI Cotter ([id number])[facility])[address] [place] [address] Urea nitrogen [Mass/Vol] 18 mg/dL Normal 6-23 [facility] Comment on above: Performed By: #### 2 4323-8 ####ANDI Cotter ([id number])[facility])[address] [place] [address] ECG 12 leadOrdered By: Zofia Young on 11-10-2023 Atrial Rate 117 BPM [facility] Work Phone: P [place] 33 degrees [facility] Work Phone: P Offset 208 [facility] Work Phone: P Onset 158 [facility] Work Phone: HI Interval 132 [facility] Work Phone: Q Onset 224 ms [facility] Work Phone: QRS Count 19 beats [facility] Work Phone: QRS Duration 78 ms [facility] Work Phone: QT Interval 324 [facility] Work Phone: QTC Calculation(Bazett) 451 [facility] Work Phone: QTC Fredericia 405 [facility] Work Phone: R [place] 34 degrees [facility] Work Phone: T [place] 32 degrees [facility] Work Phone: T Offset 386 [facility] Work Phone: Ventricular Rate 117 BPM [facility] Work Phone: [facility] Work Phone: ECG 12 leadon 11-10-2023 Sinus tachycardia Cannot rule out Anterior infarct , age undetermined Abnormal ECG When compared with ECG of 14-JUN-2023 21:04, Previous ECG has undetermined rhythm, needs review See ED provider note for full interpretation and clinical correlation Confirmed by Zofia Young ([id number]) on 11/10/2023 10:37:46 PM MUSE Zofia Young, LOCOMOTIVE INSPECTOR- RAIL ASSEMBLER - 11/10/2023 Sinus tachycardia Cannot rule out Anterior infarct , age undetermined Abnormal ECG When compared with ECG of 14-JUN-2023 21:04, Previous ECG has undetermined rhythm, needs review See ED provider note for full interpretation and clinical correlation Confirmed by Zofia Young ([id number]) on 11/10/2023 10:37:46 PM [facility] Work Phone: ECG 12-LEADon 11-10-2023 ECG 12-LEAD Ventricular Rate 117 Atrial Rate 117 P-R Interval 132 QRS Duration 78 Q-T Interval 324 QTC Calculation(Bazett) 451 P [place] 33 R [place] 34 T [place] 32 QRS Count 19 Q Onset 224 P Onset 158 P Offset 208 T Offset 386 QTC Fredericia 405 Diagnosis Sinus tachycardia Cannot rule out Anterior infarct , age undetermined Abnormal ECG When compared with ECG of 14-JUN-2023 21:04, Previous ECG has undetermined rhythm, needs review See ED provider note for full interpretation and clinical correlation Confirmed by Zofia Young ([id number]) on 11/10/2023 10:37:46 PM Normal [facility] Gas panel (BldV)on 4 Anion gap 4 (BldV) [Moles/Vol] 12.0 mmol/L 10.0 - 25.0 mmol/L [facility] Base excess Calc (BldV) [Moles/Vol] 2.8 mmol/L -2.0 - 3.0 mmol/L [facility] Calcium.ionized (BldV) [Moles/Vol] 1.19 mmol/L 1.10 - 1.33 mmol/L [facility] Chloride (BldV) [Moles/Vol] 102 mmol/L 98 - 107 mmol/L [facility] CO2 (BldV) [Partial pressure] 40 mm[Hg] Low [facility] Glucose [Mass/Vol] 187 mg/dL High 74 - 99 mg/dL [facility] HCO3 (Bld) [Moles/Vol] 27.2 mmol/L High 22.0 - 26.0 mmol/L [facility] Hematocrit Est (Bld) [Volume fraction] 39.0 % 36.0 - 46.0 % [facility] Hemoglobin (Bld) [Mass/Vol] 13.1 g/dL 12.0 - 16.0 g/dL [facility] Interpretation and review of laboratory results Abnormal [facility] Lactate (BldV) [Moles/Vol] 2.2 mmol/L High 0.4 - 2.0 mmol/L [facility] Oxygen (BldV) [Partial pressure] 37 mm[Hg] [facility] Oxygen saturation in Venous blood 49 % 45 - 75 % [facility] Oxyhemoglobin (BldV) [Mass fraction] 48.5 % 45.0 - 75.0 % [facility] pH (BldV) 7.44 [pH] High 7.33 - 7.43 pH [facility] Potassium (BldV) [Moles/Vol] 3.8 mmol/L 3.5 - 5.3 mmol/L [facility] Sodium (BldV) [Moles/Vol] 137 mmol/L 136 - 145 mmol/L [facility] Test Comment DOROTHEA MATY- [id number] [facility] Anion gap 4 (BldV) [Moles/Vol] 12.0 mmol/L Normal 10.0-25.0 [facility] Comment on above: Performed By: #### 2 4339-4 ####ANDI Cotter ([id number])[facility])[address] [place] [address] Base excess Calc (BldV) [Moles/Vol] 2.8 mmol/L Normal -2.0-3.0 [facility] Comment on above: Performed By: #### 2 4339-4 ####ANDI Cotter ([id number])[facility])[address] [place] [address] Calcium.ionized (BldV) [Moles/Vol] 1.19 mmol/L Normal 1.10-1.33 [facility] Comment on above: Performed By: #### 2 4339-4 ####ANDI Cotter ([id number])[facility])[address] [place] [address] Chloride (BldV) [Moles/Vol] 102 mmol/L Normal 98-107 [facility] Comment on above: Performed By: #### 2 4339-4 ####ANDI Cotter ([id number])[facility])[address] [place] [address] CO2 (BldV) [Partial pressure] 40 mm Hg Low 41-51 [facility] Comment on above: Performed By: #### 2 4339-4 ####ANDI Cotter ([id number])[facility])[address] [place] [address] Glucose [Mass/Vol] 187 mg/dL High 74-99 [facility] Comment on above: Performed By: #### 2 4339-4 ####ANDI Cotter ([id number])[facility])[address] [place] [address] HCO3 (Bld) [Moles/Vol] 27.2 mmol/L High 22.0-26.0 [facility] Comment on above: Performed By: #### 2 4339-4 ####ANDI Cotter ([id number])[facility])[address] [place] [address] Hematocrit Est (Bld) [Volume fraction] 39.0 % Normal 36.0-46.0 [facility] Comment on above: Performed By: #### 2 4339-4 ####ANDI Cotter ([id number])[facility])[address] [place] [address] Hemoglobin (Bld) [Mass/Vol] 13.1 g/dL Normal 12.0-16.0 [facility] Comment on above: Performed By: #### 2 4339-4 ####ANDI Cotter ([id number])[facility])[address] [place] [address] Lactate (BldV) [Moles/Vol] 2.2 mmol/L High 0.4-2.0 [facility] Comment on above: Performed By: #### 2 4339-4 ####ANDI Cotter ([id number])[facility])[address] [place] [address] Oxygen (BldV) [Partial pressure] 37 mm Hg Normal 35-45 [facility] Comment on above: Performed By: #### 2 4339-4 ####ANDI Cotter ([id number])[facility])[address] [place] [address] Oxygen saturation in Venous blood 49 % Normal 45-75 [facility] Comment on above: Performed By: #### 2 4339-4 ####ANDI Cotter ([id number])[facility])[address] [place] [address] Oxyhemoglobin (BldV) [Mass fraction] 48.5 % Normal 45.0-75.0 [facility] Comment on above: Performed By: #### 2 4339-4 ####ANDI Cotter ([id number])[facility])[address] [place] [address] pH (BldV) 7.44 [pH] High 7.33-7.43 [facility] Comment on above: Performed By: #### 2 4339-4 ####ANDI Cotter ([id number])[facility])[address] [place] [address] Potassium (BldV) [Moles/Vol] 3.8 mmol/L Normal 3.5-5.3 [facility] Comment on above: Performed By: #### 2 0779-4 ####ANDI Cotter ([id number])[facility])[address] [place] [address] Sodium (BldV) [Moles/Vol] 137 mmol/L Normal 136-145 [facility] Comment on above: Performed By: #### 2 4339-4 ####ANDI Cotter ([id number])[facility])[address] [place] [address] TEST COMMENT DOROTHEA RUTLEDGE- Normal [facility] Comment on above: Performed By: #### 2 4339-4 ####ANDI Cotter ([id number])[facility])[address] [place] [address] Glucose Test strip manual (B ld) [Mass/Vol]on 11-10-2023 Glucose [Mass/Vol] 165 mg/dL High 74 - 99 mg/dL [facility] Interpretation and review of laboratory results Abnormal [facility] Glucose [Mass/Vol] 165 mg/dL High 74-99 [facility] Comment on above: Performed By: #### 2 341-6 ####ANDI Cotter ([id number])[facility])[address] [place] [address] HCG ( test) Ql (U)O rdered By: Anneliese Mckenzie on 11-10-2023 Interpretation and review of laboratory results Normal [facility] Preg Test, Ur Negative Negative [facility] HbA1c (Bld) [Mass fraction]o n 11-10-2023 Average glucose Estimated from glycated hemoglobin (Bld) [Mass/Vol] 214 mg/dL Not Established [facility] Interpretation and review of laboratory results Abnormal [facility] Diagnosis of Diabetes-Adults Non-Diabetic: < or = 5.6% Increased risk for developing diabetes: 5.7-6.4% Diagnostic of diabetes: > or = 6.5% Monitoring of Diabetes Age (y).................... ... Therapeutic Goal (%) Adults: >18.................... .....<7.0 Pediatrics: 13-18.................. .<7.5 Pediatrics: 7-12................... .<8.0 Pediatrics: 0-6.................... . 7.5-8.5 [place] [employer]. Diabetes Care 33(S1)Sep 2009 [facility] Average glucose Estimated from glycated hemoglobin (Bld) [Mass/Vol] 214 mg/dL Normal Not Established [facility] Comment on above: Order Comment: Diagn osis of Lmcvaviy-LcmcgcYkx-Jjkmmjtw: < or = 5.6%Increased risk for developing diabetes: 5.7-6.4%Diagnostic of diabetes: > or = 6.5%Monitoring of DiabetesAge (y)....................... Therapeutic Goal (%)Adults: >18.........................<7.0Pediatrics: 13-18...................<7.5Pediatrics: 7-12....................<8.0Pediatrics: 0-6..................... 7.5-8.5[place] [employer] Diabetes [employer]. Diabetes Care 33(S1)Sep 2009 Performed By: #### 4 548-4 ####ANDI Cotter ([id number])[facility])[address] [place] [address] Hemoglobin A1con 11-10-2023 HbA1c (Bld) [Mass fraction] 9.1 % High see below [facility] Hemoglobin A1c/Hemoglobin.to fermín 11-10-2023 HbA1c (Bld) [Mass fraction] 9.1 % High see below [facility] Comment on above: Order Comment: Diagn osis of Jqlynaur-EqwsxzIxm-Gjyjwhid: < or = 5.6%Increased risk for developing diabetes: 5.7-6.4%Diagnostic of diabetes: > or = 6.5%Monitoring of DiabetesAge (y)....................... Therapeutic Goal (%)Adults: >18.........................<7.0Pediatrics: 13-18...................<7.5Pediatrics: 7-12....................<8.0Pediatrics: 0-6..................... 7.5-8.5[employer] Diabetes [employer]. Diabetes Care 33(S1), Sep 2009 Performed By: #### 4 548-4 ####ANDI Cotter ([id number])[facility] [place] [address] Lactateon 11-10-2023 Lactate (BldV) [Moles/Vol] 2.0 mmol/L Normal 0.4-2.0 [facility] Comment on above: Performed By: #### 2 519-7 ####ANDI Cotter ([id number])[facility] [place] [address] Lactate (BldV) [Moles/Vol]Or dered By: Yamilex Leung on 11-10-2023 Interpretation and review of laboratory results Normal [facility] Lipaseon 11-10-2023 Lipase [Catalytic activity/Vol] 104 U/L High 9 - 82 U/L [facility] Lipase [Catalytic activity/V ol]on 11-10-2023 Interpretation and review of laboratory results Abnormal [facility] Venipuncture immediately after or during the administration of Metamizole may lead to falsely low results. Testing should be performed immediately prior to Metamizole dosing. [facility] Triacylglycerol lipaseon Lipase [Catalytic activity/Vol] 104 U/L High 9-82 [facility] Comment on above: Order Comment: Venip uncture immediately after or during the administration of Metamizole may lead to falsely low results. Testing should be performed immediately prior to Metamizole dosing. Performed By: #### 3 040-3 ####ANDI Cotter ([id number])[facility] [place] [address] MR Pancreas WO and W contras t [...] Shelli Paris 11/09/2023 3:51 PM Dictation workstation: [id number] [facility] Interpreted By: Shelli Paris, STUDY: MRCP PANCREAS W AND WO IV CONTRAST; 11/09/2023 12:20 pm INDICATION: Signs/Symptoms:severe pancreatitis and cyst. evaluate for ductal problems and size of size. COMPARISON: CT dated 07/05/2023 ACCESSION NUMBER(S): [id number] ORDERING CLINICIAN: COLTON HICKS TECHNIQUE: Multiplanar multisequence [...] lesion identified. Small fat containing umbilical hernia. [facility] Shelli Paris MD - 11/09/2023 Interpreted By: Shelli Paris, STUDY: MRCP PANCREAS W AND WO IV CONTRAST; 11/09/2023 12:20 pm INDICATION: Signs/Symptoms:severe pancreatitis and cyst. evaluate for ductal problems and size of size. COMPARISON: CT dated 07/05/2023 ACCESSION NUMBER(S): [id number] ORDERING CLINICIAN: COLTON HICKS TECHNIQUE: Multiplanar multisequence [...] Shelli Paris 11/09/2023 3:51 PM Dictation workstation: [id number] [facility] Work Phone: Radiology Study observation (narrative) [facility] Work Phone: MR Pancreas WO and W contras t IVOrdered By: Shelli Paris on 11-09-2023 [facility] Work Phone: MRCP PANCREAS W AND WO IV CO NTRASTon 11-09-2023 MRCP PANCREAS W AND WO IV CONTRAST Interpreted By: Shelli Paris, STUDY: MRCP PANCREAS W AND WO IV CONTRAST; 11/09/2023 12:20 pm INDICATION: Signs/Symptoms:severe pancreatitis and cyst. evaluate for ductal problems and size of size. COMPARISON: CT dated 07/05/2023 ACCESSION NUMBER(S): [id number] ORDERING CLINICIAN: COLTON HICKS TECHNIQUE: Multiplanar multisequence [...] Shelli Paris 11/09/2023 3:51 PM Dictation workstation: [id number] [facility] RF Unspecified body region V iews for [...] Poncho Ruby 10/19/2023 2:35 PM Dictation workstation: [id number] [facility] Interpreted By: Poncho Sprague, STUDY: [...] radiograph during port placement 08/26/2023 ACCESSION NUMBER(S): [id number] ORDERING CLINICIAN: SHANTELL ROSSI TECHNIQUE: ATTENDING AGRICULTURAL SALES REPRESENTATIVE: Poncho Ruby M.D. TECHNICAL DESCRIPTION/FINDINGS: The procedure, including all risks, benefits and alternatives were explained to the patient in detail. All questions were answered and written informed consent was obtained. The patient was positioned supine on the fluoroscopy table. A time-out was performed. The right neck and anterosuperior chest overlying the indwelling MediPort were prepped and draped in usual sterile fashion. A solution maker fluoroscopic image was obtained demonstrating grossly unchanged [...] radiograph during port placement 08/26/2023 ACCESSION NUMBER(S): [id number] ORDERING CLINICIAN: SHANTELL ROSSI TECHNIQUE: ATTENDING AGRICULTURAL SALES REPRESENTATIVE: Poncho Ruby M.D. TECHNICAL DESCRIPTION/FINDINGS: The procedure, including all risks, benefits and alternatives were explained to the patient in detail. All questions were answered and written informed consent was obtained. The patient was positioned supine on the fluoroscopy table. A time-out was performed. The right neck and anterosuperior chest overlying the indwelling MediPort were prepped and draped in usual sterile fashion. A solution maker fluoroscopic image was obtained demonstrating grossly unchanged [...] Poncho Ruby 10/19/2023 2:35 PM Dictation workstation: [id number] [facility] Work Phone: [facility] Work Phone: CPEPon 10-18-2023 C-Peptide 2.99 ng/mL Normal 0.81-3.85 [facility] ([place]) Comment on above: Performed By: #### A DIFF, ANEU, CMP, MG, GFR, LD, CRP, CBC, ESR #### [address] [place], [place] [address] IR CVC CHECKon 10-18-2023 IR CVC CHECK Normal [facility] RF Unspecified body region V iews for central venous catheter placement checkon 10-18-2023 Radiology Study observation (narrative) [facility] Work Phone: .Auto Diffon 10-17-2023 Basophil, Absolute 0.1 10 3/mcL Normal 0.0-0.2 [facility] ([place]) Comment on above: Performed By: #### A DIFF, ANEU, CMP, MG, GFR, LD, CRP, CBC, ESR #### [address] [place], [place] [address] Basophils/100 WBC (Bld) 1.1 % Normal 0.0-2.5 [facility] ([place]) Comment on above: Performed By: #### A DIFF, ANEU, CMP, MG, GFR, LD, CRP, CBC, ESR #### [address] [address] Eosinophil, Absolute 0.1 10 3/mcL Normal 0.0-0.4 [facility] ([place]) Comment on above: Performed By: #### A DIFF, ANEU, CMP, MG, GFR, LD, CRP, CBC, ESR #### [address] [address] Eosinophils/100 WBC (Bld) 1.0 % Normal 0.0-7.0 [facility] ([place]) Comment on above: Performed By: #### A DIFF, ANEU, CMP, MG, GFR, LD, CRP, CBC, ESR #### [address] [address] Lymphocyte, Absolute 1.7 10 3/mcL Normal 0.8-3.9 [facility] ([place]) Comment on above: Performed By: #### A DIFF, ANEU, CMP, MG, GFR, LD, CRP, CBC, ESR #### [address] [address] Lymphocytes/100 WBC (Bld) 16.8 % Normal 10.0-50.0 [facility] ([place]) Comment on above: Performed By: #### A DIFF, ANEU, CMP, MG, GFR, LD, CRP, CBC, ESR #### [address] [address] Monocyte, Absolute 0.6 10 3/mcL Normal 0.2-1.0 [facility] [facility] ([place]) Comment on above: Performed By: #### A DIFF, ANEU, CMP, MG, GFR, LD, CRP, CBC, ESR #### [address] [address] Monocytes/100 WBC (Bld) 5.7 % Normal 1.7-13.0 [facility] ([place]) Comment on above: Performed By: #### A DIFF, ANEU, CMP, MG, GFR, LD, CRP, CBC, ESR #### [address] [address] Neutrophils/100 WBC (Bld) 75.4 % Normal 37.0-80.0 [facility] ([place]) Comment on above: Performed By: #### A DIFF, ANEU, CMP, MG, GFR, LD, CRP, CBC, ESR #### Sean [address] [address] .GFRon 10-17-2023 GFR Non- 49 ml/min/1.73sqm Normal [facility] ([place]) Comment on above: Result Comment: GFR Population [...] By: #### U A, PREGU #### Sean [address] [place], [place] [address] GFR 60 ml/min/1.73sqm Normal [facility] ([place]) Comment on above: Result Comment: GFR Population [...] By: #### U A, PREGU #### Sean [address] [place], [place] [address] .MDWon 10-17-2023 Monocyte Distribution Width 16.89 Normal 0.00-20.00 [facility] ([place]) Comment on above: Result Comment: For ED adult patients suspected of sepsis, MDW<=20.0 does not rule out sepsis or risk of sepsis Performed By: #### A DIFF, ANEU, CMP, MG, GFR, LD, CRP, CBC, ESR #### [address] [address] .NEUABSon 10-17-2023 Neutrophil, Absolute 7.6 10 3/mcL High 2.9-6.2 [facility] ([place]) Comment on above: Performed By: #### A DIFF, ANEU, CMP, MG, GFR, LD, CRP, CBC, ESR #### [place] [address] .Urinalysis Microscopic (AO) on 10-17-2023 UA RBC 0-5 Abnormal None Seen [facility] ([place]) Comment on above: Performed By: #### A DIFF, ANEU, CMP, MG, GFR, LD, CRP, CBC, ESR #### [place] [address] UA Squam Epithelial 0-5 Abnormal None Seen [facility] ([place]) Comment on above: Performed By: #### A DIFF, ANEU, CMP, MG, GFR, LD, CRP, CBC, ESR #### [address] [address] UA WBC None Seen Normal None Seen [facility] ([place]) Comment on above: Performed By: #### A DIFF, ANEU, CMP, MG, GFR, LD, CRP, CBC, ESR #### [address] [address] BMPon 10-17-2023 BUN/Creatinine Ratio 14 ratio Normal 7-27 [facility]) Comment on above: Order Comment: louis in er notified of specimen hemolyzed for recollect 10/17/2023 16:22:32 EST called by kl Performed By: #### U A, PREGU #### Sean [address] [place], [place] [address] Calcium [Mass/Vol] 9.0 mg/dL Normal 8.4-10.2 [facility] ([place]) Comment on above: Order Comment: louis in er notified of specimen hemolyzed for recollect 10/17/2023 16:22:32 EST called by kl Performed By: #### U A, PREGU #### Sean [address] [place], [place] [address] Chloride [Moles/Vol] 97 mmol/L Low 98-107 [facility] ([place]) Comment on above: Order Comment: louis in er notified of specimen hemolyzed for recollect 10/17/2023 16:22:32 EST called by kl Performed By: #### U A, PREGU #### Sean [address] [place], [place] [address] CO2 [Moles/Vol] 22 mmol/L Normal 22-29 [facility] ([place]) Comment on above: Order Comment: louis in er notified of specimen hemolyzed for recollect 10/17/2023 16:22:32 EST called by kl Performed By: #### U A, PREGU #### Sean [address] [place], [place] [address] Creatinine [Mass/Vol] 1.17 mg/dL High 0.55-1.02 [facility] ([place]) Comment on above: Order Comment: louis in er notified of specimen hemolyzed for recollect 10/17/2023 16:22:32 EST called by kl Performed By: #### U A, PREGU #### Sean [address] [place], [place] [address] Electrolyte Balance 15.0 mEq/L Normal 4.0-15.0 [facility] ([place]) Comment on above: Order Comment: louis in er notified of specimen hemolyzed for recollect 10/17/2023 16:22:32 EST called by kl Performed By: #### U A, PREGU #### Grayson [address] [place], [place] [address] Glucose [Mass/Vol] 491 mg/dL Critically abnormal 70-105 [facility] ([place]) Comment on above: Order Comment: louis in er notified of specimen hemolyzed for recollect 10/17/2023 16:22:32 EST called by kl Performed By: #### U A, PREGU #### Sean [address] [place], [place] [address] Potassium [Moles/Vol] 4.4 mmol/L Normal 3.5-5.1 [facility] ([place]) Comment on above: Order Comment: louis in er notified of specimen hemolyzed for recollect 10/17/2023 16:22:32 EST called by kl Performed By: #### U A, PREGU #### Sean [address] [place], [place] [address] Sodium [Moles/Vol] 134 mmol/L Low 136-145 [facility] ([place]) Comment on above: Order Comment: louis in er notified of specimen hemolyzed for recollect 10/17/2023 16:22:32 EST called by kl Performed By: #### U A, PREGU #### Sean [address] [place], [place] [address] Urea nitrogen [Mass/Vol] 16 mg/dL Normal 7-18 [facility] ([place]) Comment on above: Order Comment: louis in er notified of specimen hemolyzed for recollect 10/17/2023 16:22:32 EST called by kl Performed By: #### U A, PREGU #### Sean [address] [place], [place] [address] CBCon 10-17-2023 Erythrocyte distribution width (RBC) [Ratio] 16.5 % High 11.5-14.5 [facility] ([place]) Comment on above: Performed By: #### A DIFF, ANEU, CMP, MG, GFR, LD, CRP, CBC, ESR #### Sean [address] [address] Hematocrit (Bld) [Volume fraction] 41.6 % Normal 37.0-47.0 [facility] ([place]) Comment on above: Performed By: #### A DIFF, ANEU, CMP, MG, GFR, LD, CRP, CBC, ESR #### [address] [address] Hgb 13.9 G/dL Normal 12.0-16.0 [facility] ([place]) Comment on above: Performed By: #### A DIFF, ANEU, CMP, MG, GFR, LD, CRP, CBC, ESR #### [address] [address] MCH (RBC) [Entitic mass] 29.7 pg Normal 27.0-31.2 [facility] ([place]) Comment on above: Performed By: #### A DIFF, ANEU, CMP, MG, GFR, LD, CRP, CBC, ESR #### [address] [address] MCHC 33.3 G/dL Normal 33.0-37.0 [facility] ([place]) Comment on above: Performed By: #### A DIFF, ANEU, CMP, MG, GFR, LD, CRP, CBC, ESR #### [address] [address] MCV (RBC) [Entitic vol] 89.2 fL Normal 80.0-94.0 [facility] ([place]) Comment on above: Performed By: #### A DIFF, ANEU, CMP, MG, GFR, LD, CRP, CBC, ESR #### [address] [address] Platelet 381 10 3/mcL Normal 130-400 [facility] ([place]) Comment on above: Performed By: #### A DIFF, ANEU, CMP, MG, GFR, LD, CRP, CBC, ESR #### [address] [address] Platelet mean volume (Bld) [Entitic vol] 7.0 fL Low 7.4-10.4 [facility] ([place]) Comment on above: Performed By: #### A DIFF, ANEU, CMP, MG, GFR, LD, CRP, CBC, ESR #### [address] [address] RBC 4.67 10 6/mcL Normal 4.20-5.40 [facility]) Comment on above: Performed By: #### A DIFF, ANEU, CMP, MG, GFR, LD, CRP, CBC, ESR #### [address] [address] WBC 10.1 10 3/mcL Normal 4.6-10.8 [facility]) Comment on above: Performed By: #### A DIFF, ANEU, CMP, MG, GFR, LD, CRP, CBC, ESR #### [address] [address] HFPon 10-17-2023 Bili Indirect 0.2 mg/dL Normal [facility]) Comment on above: Performed By: #### A DIFF, ANEU, CMP, MG, GFR, LD, CRP, CBC, ESR #### [address] [address] Albumin Level 4.1 G/dL Normal 3.5-5.0 [facility]) Comment on above: Performed By: #### A DIFF, ANEU, CMP, MG, GFR, LD, CRP, CBC, ESR #### [address] [address] Albumin/Globulin [Mass ratio] 1.0 {ratio} Low 1.1-2.5 [facility]) Comment on above: Performed By: #### A DIFF, ANEU, CMP, MG, GFR, LD, CRP, CBC, ESR #### [address] [address] ALP [Catalytic activity/Vol] 108 U/L Normal 40-135 [facility]) Comment on above: Performed By: #### A DIFF, ANEU, CMP, MG, GFR, LD, CRP, CBC, ESR #### [address] [address] ALT [Catalytic activity/Vol] 57 U/L Normal 14-59 [facility]) Comment on above: Performed By: #### A DIFF, ANEU, CMP, MG, GFR, LD, CRP, CBC, ESR #### [address] [address] AST [Catalytic activity/Vol] 19 U/L Normal 10-40 [facility] ([place]) Comment on above: Performed By: #### A DIFF, ANEU, CMP, MG, GFR, LD, CRP, CBC, ESR #### [address] [address] Bili Direct 0.1 mg/dL Normal 0.0-0.2 [facility] ([place]) Comment on above: Result Comment: Use of this assay is not recommended for patients undergoing treatment with eltrombopag due to the potential for falsely elevated results. Performed By: #### A DIFF, ANEU, CMP, MG, GFR, LD, CRP, CBC, ESR #### [address] [address] Bili Total 0.3 mg/dL Normal 0.2-1.0 [facility] ([place]) Comment on above: Result Comment: Use of this assay is not recommended for patients undergoing treatment with eltrombopag due to the potential for falsely elevated results. Performed By: #### A DIFF, ANEU, CMP, MG, GFR, LD, CRP, CBC, ESR #### [address] [address] Globulin 4.0 G/dL Normal [facility] ([place]) Comment on above: Performed By: #### A DIFF, ANEU, CMP, MG, GFR, LD, CRP, CBC, ESR #### [address] [address] Total Protein 8.1 G/dL Normal 6.4-8.2 [facility] ([place]) Comment on above: Performed By: #### A DIFF, ANEU, CMP, MG, GFR, LD, CRP, CBC, ESR #### [address] [address] LABORATORYOrdered By: Maureen Leung on 10-17-2023 Blood Glucose Testing Reason Symptoms of hyperglycemia (10/17/23 5:28 PM) [place] Glucose [Mass/Vol] 491 mg/dL Invalid Interpretation Code 70 - 110 mg/dL [place] LABORATORYOrdered By: SYSTEM SYSTEM on 10-17-2023 Albumin [...] SS Comment on above: Result Comment: lottie Carlos Alberto Greer in er 10/17/2023 17:10:55 EST called [...] [facility] SS Comment on above: Interpretive Data: Rufina cochran [employer] (CHEST, 1991, 102:312S-25S) recommended therapeutic range for oral anticoagulant therapy is: LOW RISK: Prophylaxis of venous thrombosis INR: 2.0-3.0 Treatment of pulmonary embolism 2.0-3.0 Prevention of systemic embolism 2.0-3.0 HIGH RISK: Mechanical prosthetic valves 2.5-3.5 PT Coag (PPP) [Time] 12.6 s Normal 9.0 - 1 4.2 seconds AO [facility] LIPon 10-17-2023 Lipase Level 57 U/L Normal 16-77 [facility] ([place]) Comment on above: Performed By: #### A DIFF, ANEU, CMP, MG, GFR, LD, CRP, CBC, ESR #### [address] [address] PREGUon 10-17-2023 HCG ( test) Ql (U) Negative Normal [facility]) Comment on above: Performed By: #### A DIFF, ANEU, CMP, MG, GFR, LD, CRP, CBC, ESR #### [address] [address] test (u) int Not detected Invalid Interpretation Code [facility] ([place]) Comment on above: Performed By: #### A DIFF, ANEU, CMP, MG, GFR, LD, CRP, CBC, ESR #### [place] [id number] [place], [place] [address] PROon 10-17-2023 PT Coag (PPP) [Time] 12.6 s Normal 9.0-14.2 [facility]) Comment on above: Performed By: #### U A, PREGU #### [facility] [place] [address] [place], [place] [address] PT International Ratio 1.1 Normal [facility] ([place]) Comment on above: Result Comment: [employer] (CHEST, 1992, 102:312S-25S) recommended therapeutic range for oral anticoagulant therapy is: LOW RISK: Prophylaxis of venous thrombosis INR: 2.0-3.0 Treatment of pulmonary embolism 2.0-3.0 Prevention of systemic embolism 2.0-3.0 HIGH RISK: Mechanical prosthetic valves 2.5-3.5 Performed By: #### U A, PREGU #### [facility] [place] [address] [place], [place] [address] UAon 10-17-2023 Color (U) Yellow Normal [facility] ([place]) Comment on above: Performed By: #### A DIFF, ANEU, CMP, MG, GFR, LD, CRP, CBC, ESR #### [address] [address] Glucose (U) [Mass/Vol] 500 mg/dL Abnormal Negative [facility] ([place]) Comment on above: Performed By: #### A DIFF, ANEU, CMP, MG, GFR, LD, CRP, CBC, ESR #### [address] [address] Ketones Ql (U) Negative Normal Negative [facility] ([place]) Comment on above: Performed By: #### A DIFF, ANEU, CMP, MG, GFR, LD, CRP, CBC, ESR #### [address] [address] UA Appear Clear Normal Clear [facility] ([place]) Comment on above: Performed By: #### A DIFF, ANEU, CMP, MG, GFR, LD, CRP, CBC, ESR #### [address] [address] UA Blood Small Abnormal Negative [facility] ([place]) Comment on above: Performed By: #### A DIFF, ANEU, CMP, MG, GFR, LD, CRP, CBC, ESR #### [address] [address] UA Leuk Est Negative Normal Negative [facility] ([place]) Comment on above: Performed By: #### A DIFF, ANEU, CMP, MG, GFR, LD, CRP, CBC, ESR #### [address] [address] UA Nitrite Negative Normal Negative [facility] ([place]) Comment on above: Performed By: #### A DIFF, ANEU, CMP, MG, GFR, LD, CRP, CBC, ESR #### [address] [address] UA pH 6.5 Normal 5.0 - 8.0 [facility] ([place]) Comment on above: Performed By: #### A DIFF, ANEU, CMP, MG, GFR, LD, CRP, CBC, ESR #### [address] [address] UA Protein Negative Normal Negative [facility] ([place]) Comment on above: Performed By: #### A DIFF, ANEU, CMP, MG, GFR, LD, CRP, CBC, ESR #### [address] [address] UA Spec Grav 1.025 Normal 1.015-1.025 [facility] ([place]) Comment on above: Performed By: #### A DIFF, ANEU, CMP, MG, GFR, LD, CRP, CBC, ESR #### [address] [address] UA Specimen Type Clean Catch Normal [facility] ([place]) Comment on above: Performed By: #### A DIFF, ANEU, CMP, MG, GFR, LD, CRP, CBC, ESR #### [address] [address] UA Urobilinogen 0.2 E.U./dL Normal 0.2-1.0 [facility] ([place]) Comment on above: Performed By: #### A DIFF, ANEU, CMP, MG, GFR, LD, CRP, CBC, ESR #### [address] [address] Urobilinogen (U) [Mass/Vol] Negative Normal Negative [facility] ([place]) Comment on above: Performed By: #### A DIFF, ANEU, CMP, MG, GFR, LD, CRP, CBC, ESR #### [address] [address] Guidance for placement of CV catheter with port in Cheston 08-26-2023 1. Uncomplicated placement of a right infraclavicular single-lumen Mediport- 8-Algerian catheter tip residing at the cavoatrial junction. 2. CT power-injection compatible Mediport. 3. MRI-compatible Mediport. Optimal functioning device and ready for utilization. I was present for and/or performed the critical portions of the procedure and immediately available throughout the entire procedure. I personally reviewed the image(s) / study and resident interpretation. I agree with the findings as stated. Performed and dictated at [facility]. MACRO: None Signed by: Christophe Garcia 08/26/2023 1:39 PM Dictation workstation: [id number] [facility] MMODAL Interpreted By: Christophe Garcia, STUDY: IR CVC PORT PLACEMENT; 08/26/2023 1:08 pm INDICATION: Signs/Symptoms:Port implant poor IV access, can receive opioid sparing infusion once every 2 weeks. COMPARISON: None. ACCESSION NUMBER(S): [id number] ORDERING CLINICIAN: TIANNA RASMUSSEN TECHNIQUE: INTERVENTIONALIST(S): Christophe [...] PACS. After confirmation of location, a 018 [place]-Mandril guidewire was inserted to secure location. The guidewire was advanced into the inferior vena cava utilizing intermittent fluoroscopy. The micro-access needle was removed over the guidewire. Utilizing a 5-on-4 coaxial dilator sheath system, upsize to a 035 3-J guidewire was performed. Subsequent access tract dilation was performed to an eventual 8.5-Algerian peel-away sheath dilator system. Following Lidocaine 1% local anesthesia, a superolateral Mediport pocket was created in the subcutaneous infraclavicular chest wall. The Mediport pocket was irrigated with normal saline and prophylactic antibiotics. A subcutaneous tract was then created from the Mediport pocket to the venous access site. The 8-Algerian port catheter was introduced maintaining continuity from [...] The patient tolerated the procedure without complication. Christophe Merino MD - 08/26/2023 Interpreted By: Christophe Garcia, STUDY: IR CVC PORT PLACEMENT; 08/26/2023 1:08 pm INDICATION: Signs/Symptoms:Port implant poor IV access, can receive opioid sparing infusion once every 2 weeks. COMPARISON: None. ACCESSION NUMBER(S): [id number] ORDERING CLINICIAN: TIANNA RASMUSSEN TECHNIQUE: INTERVENTIONALIST(S): Christophe [...] PACS. After confirmation of location, a 018 [place]-Mandril guidewire was inserted to secure location. The guidewire was advanced into the inferior vena cava utilizing intermittent fluoroscopy. The micro-access needle was removed over the guidewire. Utilizing a 5-on-4 coaxial dilator sheath system, upsize to a 035 3-J guidewire was performed. Subsequent access tract dilation was performed to an eventual 8.5-Algerian peel-away sheath dilator system. Following Lidocaine 1% local anesthesia, a superolateral Mediport pocket was created in the subcutaneous infraclavicular chest wall. The Mediport pocket was irrigated with normal saline and prophylactic antibiotics. A subcutaneous tract was then created from the Mediport pocket to the venous access site. The 8-Algerian port catheter was introduced maintaining continuity from [...] placement of a right infraclavicular single-lumen Mediport- 8-Algerian catheter tip residing at the cavoatrial junction. 2. CT power-injection compatible Mediport. 3. MRI-compatible Mediport. Optimal functioning device and ready for utilization. I was present for and/or performed the critical portions of the procedure and immediately available throughout the entire procedure. I personally reviewed the image(s) / study and resident interpretation. I agree with the findings as stated. Performed and dictated at [facility] (more content not included)... [facility] Work Phone: Radiology Study observation (narrative) [facility] Work Phone: Guidance for placement of CV catheter with port in ChestOrdered By: Christophe Garcia on 08-26-2023 [facility] Work Phone: IR CVC PORT PLACEMENTon 12-0 IR CVC PORT PLACEMENT Normal [facility] No Panel Informationon 08-09 Culture Urine <10,000 cfu/ml. No Significant growth. Sensitivity not indicated. [place] CBC panel Auto (Bld)on 08-03 Erythrocyte distribution width (RBC) [Ratio] 13.7 % Normal 11.5-14.5 [facility] Comment on above: Performed By: #### 5 8410-2 ####ANDI Cotetr ([id number])[facility])[address] [place] [address] Hematocrit (Bld) [Volume fraction] 41.7 % Normal 36.0-46.0 [facility] Comment on above: Performed By: #### 5 8410-2 ####ANDI Cotter ([id number])[facility])[address] [place] [address] Hemoglobin (Bld) [Mass/Vol] 13.0 g/dL Normal 12.0-16.0 [facility] Comment on above: Performed By: #### 5 8410-2 ####ANDI Cotter ([id number])[facility])[address] [place] [address] MCH (RBC) [Entitic mass] 29.7 pg Normal 26.0-34.0 [facility] Comment on above: Performed By: #### 5 8410-2 ####ANDI Cotter ([id number])[facility])[address] [place] [address] MCHC (RBC) [Mass/Vol] 31.2 g/dL Low 32.0-36.0 [facility] Comment on above: Performed By: #### 5 8410-2 ####ANDI Cotter ([id number])[facility])[id number] [place] [address] MCV (RBC) [Entitic vol] 95 fL Normal 80-100 [facility] Comment on above: Performed By: #### 5 8410-2 ####ANDI Cotter ([id number])[facility])[address] [place] [address] Nucleated RBC/100 WBC (Bld) [Ratio] 1.5 /100 WBCs High 0.0-0.0 [facility] Comment on above: Performed By: #### 5 8410-2 ####ANDI Cotter ([id number])[facility])[address] [place] [address] Platelets (Bld) [#/Vol] 272 x10*3/uL Normal 150-450 [facility] Comment on above: Performed By: #### 5 8410-2 ####ANDI Cotter ([id number])[facility])[address] [place] [address] RBC (Bld) [#/Vol] 4.37 x10*6/uL Normal 4.00-5.20 [facility] Comment on above: Performed By: #### 5 8410-2 ####ANDI Cotter ([id number])[facility])[address] [place] [address] WBC (Bld) [#/Vol] 10.0 x10*3/uL Normal 4.4-11.3 [facility] Comment on above: Performed By: #### 5 8410-2 ####ANDI Cotter ([id number])[facility])[address] [place] [address] Comprehensive metabolic 2000 panelon 08-03-2023 Albumin BCP dye [Mass/Vol] 4.5 g/dL Normal 3.4-5.0 [facility] Comment on above: Performed By: #### 2 4323-8 ####ANDI Cotter ([id number])[facility])[address] [place] [address] ALP [Catalytic activity/Vol] 87 U/L Normal 33-110 [facility] Comment on above: Performed By: #### 2 4323-8 ####ANDI CHAUDHARY L ([id number])[facility])[address] [place] [address] ALT With P-5'-P [Catalytic activity/Vol] 35 U/L Normal 7-45 [facility] Comment on above: Result Comment: Evelyn ents treated with Sulfasalazine may generate falsely decreased results for ALT. Performed By: #### 2 4323-8 ####ANDI RENEEER L ([id number])[facility])[address] [place] [address] Anion gap [Moles/Vol] 27 mmol/L High 10-20 [facility] Comment on above: Performed By: #### 2 4323-8 ####ANDI CHAUDHARY L ([id number])[facility])[id number] [place] [address] AST With P-5'-P [Catalytic activity/Vol] 32 U/L Normal 9-39 [facility] Comment on above: Result Comment: MILD HEMOLYSIS DETECTED. The result may be falsely elevated due to hemolysis or other interferents. Clinical correlation is recommended. Repeat testing may be considered. Performed By: #### 2 4323-8 ####ANDI CHAUDHARY L ([id number])[facility])[address] [place] [address] Bilirubin [Mass/Vol] 0.4 mg/dL Normal 0.0-1.2 [facility] Comment on above: Performed By: #### 2 4323-8 ####ANDI RENEEER L ([id number])[facility])[address] [place] [address] Calcium [Mass/Vol] 9.5 mg/dL Normal 8.6-10.6 [facility] Comment on above: Performed By: #### 2 4323-8 ####ANDI CHAUDHARY L ([id number])[facility])[address] [place] [address] Chloride [Moles/Vol] 102 mmol/L Normal 98-107 [facility] Comment on above: Performed By: #### 2 4323-8 ####ANDI Cotter ([id number])[facility])[address] [place] [address] CO2 [Moles/Vol] 13 mmol/L Low 21-32 [facility] Comment on above: Performed By: #### 2 4323-8 ####ANDI Cotter ([id number])[facility])[address] [place] [address] Creatinine [Mass/Vol] 0.72 mg/dL Normal 0.50-1.05 [facility] Comment on above: Performed By: #### 2 4323-8 ####ANDI Cotter ([id number])[facility])[address] [place] [address] GFR/1.73 sq M.predicted MDRD (S/P/Bld) [Vol rate/Area] mL/min/{1.73_m2} Normal >60 [facility] Comment on above: Result Comment: Calc ulations of estimated GFR are performed using the 2020 CKD-EPI Study Refit equation without the race variable for the IDMS-Traceable creatinine methods.https://jasn.asnjournals.org/content// N.7967705409 Performed By: #### 2 4323-8 ####ANDI Cotter ([id number])[facility])[address] [place] [address] Glucose [Mass/Vol] 140 mg/dL High 74-99 [facility] Comment on above: Performed By: #### 2 4323-8 ####ANDI Cotter ([id number])[facility])[address] [place] [address] Potassium [Moles/Vol] 4.6 mmol/L Normal 3.5-5.3 [facility] Comment on above: Result Comment: MILD HEMOLYSIS DETECTED. The result may be falsely elevated due to hemolysis or other interferents. Clinical correlation is recommended. Repeat testing may be considered. Performed By: #### 2 4323-8 ####ANDI Cotter ([id number])[facility])[address] [place] [address] Protein [Mass/Vol] 7.7 g/dL Normal 6.4-8.2 [facility] Comment on above: Performed By: #### 2 4323-8 ####ANDI Cotter ([id number])[facility] ([facility])[address] [place] [address] Sodium [Moles/Vol] 137 mmol/L Normal 136-145 [facility] Comment on above: Performed By: #### 2 4323-8 ####ANDI Cotter ([id number])[facility] ([facility])[address] [place] [address] Urea nitrogen [Mass/Vol] 15 mg/dL Normal 6-23 [facility] Comment on above: Performed By: #### 2 4323-8 ####ANDI Cotter ([id number])[facility] ([facility])[address] [place] [address] IgG subclass 4on 08-03-2023 IgG subclass 4 (S) [Mass/Vol] 229 mg/dL High 3-200 [facility] Comment on above: Performed By: #### 2 469-5 ####ANDI Cotter ([id number])[facility] ([facility])[address] [place] [address] Triacylglycerol lipaseon Lipase [Catalytic activity/Vol] 17 U/L Normal 9-82 [facility] Comment on above: Order Comment: Venip uncture immediately after or during the administration of Metamizole may lead to falsely low results. Testing should be performed immediately prior to Metamizole dosing. Performed By: #### 3 040-3 ####ANDI Cotter ([id number])[facility] ([facility])[address] [place] [address] CBC W Auto Differential pane l (Bld)on 07-05-2023 Basophils (Bld) [#/Vol] 0.07 x10*3/uL Normal 0.00-0.10 [facility] Comment on above: Performed By: #### 5 7021-8 #### ALVARO CROUCH ([id number]) [facility] ([facility]) [address] [place] [address] Basophils/100 WBC (Bld) 0.6 % Normal 0.0-2.0 [facility] Comment on above: Performed By: #### 5 7021-8 #### ALVARO CROUCH ([id number]) [facility] ([facility]) [address] [place] [address] Eosinophils (Bld) [#/Vol] 0.22 x10*3/uL Normal 0.00-0.70 [facility] Comment on above: Performed By: #### 5 7021-8 #### ALVARO CROUCH ([id number]) [facility] ([facility]) [address] [place] [address] Eosinophils/100 WBC (Bld) 1.9 % Normal 0.0-6.0 [facility] Comment on above: Performed By: #### 5 7021-8 #### ALVARO CROUCH ([id number]) [facility] ([facility]) [address] [place] [address] Erythrocyte distribution width (RBC) [Ratio] 13.2 % Normal 11.5-14.5 [facility] Comment on above: Performed By: #### 5 7021-8 #### ALVARO CROUCH ([id number]) [facility] ([facility]) [address] [place] [address] Hematocrit (Bld) [Volume fraction] 46.2 % High 36.0-46.0 [facility] Comment on above: Performed By: #### 5 7021-8 #### ALVARO CROUCH ([id number]) [facility] ([facility]) [address] [place] [address] Hemoglobin (Bld) [Mass/Vol] 15.0 g/dL Normal 12.0-16.0 [facility] Comment on above: Performed By: #### 5 7021-8 #### ALVARO CROUCH ([id number]) [facility] ([facility]) [address] [place] [address] Immature granulocytes (Bld) [#/Vol] 0.09 x10*3/uL Normal 0.00-0.70 [facility] Comment on above: Performed By: #### 5 7021-8 #### ALVARO CROUCH ([id number]) [facility] ([facility]) [address] [place] [address] Immature granulocytes/100 WBC (Bld) 0.8 % Normal 0.0-0.9 [facility] Comment on above: Result Comment: Debbie ture Granulocyte Count (IG) includes promyelocytes, myelocytes and metamyelocytes but does not include bands. Percent differential counts (%) should be interpreted in the context of the absolute cell counts (cells/UL). Performed By: #### 5 7021-8 #### ALVARO CROUCH ([id number]) [facility] ([facility]) [address] [place] [address] Lymphocytes (Bld) [#/Vol] 2.43 x10*3/uL Normal 1.20-4.80 [facility] Comment on above: Performed By: #### 5 7021-8 #### ALVARO CROUCH ([id number]) [facility] ([facility]) [address] [place] [address] Lymphocytes/100 WBC (Bld) 20.5 % Normal 13.0-44.0 [facility] Comment on above: Performed By: #### 5 7021-8 #### ALVARO CROUCH ([id number]) [facility] ([facility]) [address] [place] [address] MCH (RBC) [Entitic mass] 29.1 pg Normal 26.0-34.0 [facility] Comment on above: Performed By: #### 5 7021-8 #### ALVARO CROUCH ([id number]) [facility] ([facility]) [address] [place] [address] MCHC (RBC) [Mass/Vol] 32.5 g/dL Normal 32.0-36.0 [facility] Comment on above: Performed By: #### 5 7021-8 #### ALVARO CROUCH ([id number]) [facility] ([facility]) [address] [place] [address] MCV (RBC) [Entitic vol] 90 fL Normal 80-100 [facility] Comment on above: Performed By: #### 5 7021-8 #### ALVARO CROUCH ([id number]) [facility] ([facility]) [address] [place] [address] Monocytes (Bld) [#/Vol] 0.54 x10*3/uL Normal 0.10-1.00 [facility] Comment on above: Performed By: #### 5 7021-8 #### ALVARO CROUCH ([id number]) [facility] ([facility]) [address] [place] [address] Monocytes/100 WBC (Bld) 4.5 % Normal 2.0-10.0 [facility] Comment on above: Performed By: #### 5 7021-8 #### ALVARO CROUCH ([id number]) [facility] ([facility]) [address] [place] [address] Neutrophils (Bld) [#/Vol] 8.53 x10*3/uL High 1.20-7.70 [facility] Comment on above: Result Comment: Perc ent differential counts (%) should be interpreted in the context of the absolute cell counts (cells/uL). Performed By: #### 5 7021-8 #### ALVARO CROUCH ([id number]) [facility] ([facility]) [address] [place] [address] Neutrophils/100 WBC (Bld) 71.7 % Normal 40.0-80.0 [facility] Comment on above: Performed By: #### 5 7021-8 #### ALVARO CROUCH ([id number]) [facility] ([facility]) [address] [place] [address] Nucleated RBC/100 WBC (Bld) [Ratio] 0.0 /100 WBCs Normal 0.0-0.0 [facility] Comment on above: Performed By: #### 5 7021-8 #### ALVARO CROUCH ([id number]) [facility] ([facility]) [address] [place] [address] Platelet mean volume (Bld) [Entitic vol] 8.5 fL Normal 7.5-11.5 [facility] Comment on above: Performed By: #### 5 7021-8 #### ALVARO CROUCH ([id number]) [facility] ([facility]) [address] [place] [address] Platelets (Bld) [#/Vol] 531 x10*3/uL High 150-450 [facility] Comment on above: Performed By: #### 5 7021-8 #### ALVARO CROUCH ([id number]) [facility] ([facility]) [address] [facility] [address] RBC (Bld) [#/Vol] 5.16 x10*6/uL Normal 4.00-5.20 [facility] Comment on above: Performed By: #### 5 7021-8 #### ALVARO CROUCH ([id number]) [facility] ([facility]) [address] [place] [address] WBC (Bld) [#/Vol] 11.9 x10*3/uL High 4.4-11.3 [facility] Comment on above: Performed By: #### 5 7021-8 #### ALVARO CROUCH ([id number]) [facility] ([facility]) [address] [place] [address] CT ABDOMEN PELVIS W IV CONTR Reny 07-05-2023 CT ABDOMEN PELVIS W IV CONTRAST STUDY: CT Abdomen and Pelvis with IV Contrast; 07/05/2023 7:42 PM INDICATION: Abdominal pain. COMPARISON: CT abdomen/pelvis 06/15/2023. US renal bilateral 05/14/2023. ACCESSION NUMBER(S): [id number] ORDERING CLINICIAN: SARAH HO TECHNIQUE: CT of [...] absent. Signed by Andreea Winter MD Normal [facility] Comprehensive metabolic 2000 panelon 07-05-2023 Albumin BCP dye [Mass/Vol] 5.3 g/dL High 3.4-5.0 [facility] Comment on above: Performed By: #### 2 4323-8 #### ALVARO CROUCH ([id number]) [facility] ([facility]) [address] [place] [address] ALP [Catalytic activity/Vol] 109 U/L Normal 33-110 [facility] Comment on above: Performed By: #### 2 4323-8 #### ALVARO CROUCH ([id number]) [facility] ([facility]) [address] [place] [address] ALT With P-5'-P [Catalytic activity/Vol] 44 U/L Normal 7-45 [facility] Comment on above: Result Comment: Evelyn ents treated with Sulfasalazine may generate falsely decreased results for ALT. Performed By: #### 2 4323-8 #### ALVARO CROUCH ([id number]) [facility] ([facility]) [address] [place] [address] Anion gap [Moles/Vol] 22 mmol/L High 10-20 [facility] Comment on above: Performed By: #### 2 4323-8 #### ALVARO CROUCH ([id number]) [facility] ([facility]) [address] [place] [address] AST With P-5'-P [Catalytic activity/Vol] 33 U/L Normal 9-39 [facility] Comment on above: Performed By: #### 2 4323-8 #### ALVARO CROUCH ([id number]) [facility] ([facility]) [address] [place] [address] Bilirubin [Mass/Vol] 0.4 mg/dL Normal 0.0-1.2 [facility] Comment on above: Performed By: #### 2 4323-8 #### ALVARO CROUCH ([id number]) [facility] ([facility]) [address] [place] [address] Calcium [Mass/Vol] 10.0 mg/dL Normal 8.6-10.3 [facility] Comment on above: Performed By: #### 2 4323-8 #### ALVARO CROUCH ([id number]) [facility] ([facility]) [address] [place] [address] Chloride [Moles/Vol] 95 mmol/L Low 98-107 [facility] Comment on above: Performed By: #### 2 4323-8 #### ALVARO CROUCH ([id number]) [facility] ([facility]) [address] [place] [address] CO2 [Moles/Vol] 21 mmol/L Normal 21-32 [facility] Comment on above: Performed By: #### 2 4323-8 #### ALVARO CROUCH ([id number]) [facility] ([facility]) [address] [place] [address] Creatinine [Mass/Vol] 0.92 mg/dL Normal 0.50-1.05 [facility] Comment on above: Performed By: #### 2 4323-8 #### ALVARO CROUCH ([id number]) [facility] ([facility]) [address] [place] [address] GFR/1.73 sq M.predicted MDRD (S/P/Bld) [Vol rate/Area] 77 mL/min/1.73m*2 Normal >60 [facility] Comment on above: Result Comment: Calc ulations of estimated GFR are performed using the 2020 CKD-EPI Study Refit equation without the race variable for the IDMS-Traceable creatinine methods. https://jasn.asnjournals.org/content/early//ASN.766570 6643 Performed By: #### 2 4323-8 #### ALVARO CROUCH ([id number]) [facility] ([facility]) [address] [place] [address] Glucose [Mass/Vol] 141 mg/dL High 74-99 [facility] Comment on above: Performed By: #### 2 4323-8 #### ALVARO CROUCH ([id number]) [facility] ([facility]) [address] [place] [address] Potassium [Moles/Vol] 3.9 mmol/L Normal 3.5-5.3 [facility] Comment on above: Performed By: #### 2 4323-8 #### ALVARO CROUCH ([id number]) [facility] ([facility]) [address] [place] [address] Protein [Mass/Vol] 8.7 g/dL High 6.4-8.2 [facility] Comment on above: Performed By: #### 2 4323-8 #### ALVARO CROUCH ([id number]) [facility] ([facility]) [address] [place] [address] Sodium [Moles/Vol] 134 mmol/L Low 136-145 [facility] Comment on above: Performed By: #### 2 4323-8 #### ALVARO CROUCH ([id number]) [facility] ([facility]) [address] [place] [address] Urea nitrogen [Mass/Vol] 26 mg/dL High 6-23 [facility] Comment on above: Performed By: #### 2 4323-8 #### ALVARO CROUCH ([id number]) [facility] ([facility]) [address] [place] [address] Triacylglycerol lipaseon Lipase [Catalytic activity/Vol] 43 U/L Normal 9-82 [facility] Comment on above: Order Comment: Venip uncture immediately after or during the administration of Metamizole may lead to falsely low results. Testing should be performed immediately prior to Metamizole dosing. Performed By: #### 3 040-3 #### ALVARO CROUCH ([id number]) [facility] ([facility]) [address] [place] [address] Urinalysis complete W Reflex Culture panel (U)on 07-05-2023 Appearance (U) Clear Normal Clear [facility] Comment on above: Performed By: #### 5 8077-9 #### ALVARO CROUCH ([id number]) [facility] ([facility]) [address] [place] [address] Bilirubin (U) [Mass/Vol] Negative Normal NEGATIVE [facility] Comment on above: Performed By: #### 5 8077-9 #### ALVARO CROUCH ([id number]) [facility] ([facility]) [address] [place] [address] Color (U) Yellow Normal Straw, Yellow [facility] Comment on above: Performed By: #### 5 8077-9 #### ALVARO CROUCH ([id number]) [facility] ([facility]) [address] [place] [address] Glucose Auto test strip (U) [Mass/Vol] Negative Normal NEGATIVE [facility] Comment on above: Performed By: #### 5 8077-9 #### ALVARO CROUCH ([id number]) [facility] ([facility]) [address] [place] [address] Ketones (U) [Mass/Vol] Negative Normal NEGATIVE [facility] Comment on above: Performed By: #### 5 8077-9 #### ALVARO CROUCH ([id number]) [facility] ([facility]) [address] [place] [address] Leukocyte esterase Auto test strip Ql (U) Negative Normal NEGATIVE [facility] Comment on above: Performed By: #### 5 8077-9 #### ALVARO CROUCH ([id number]) [facility] ([facility]) [address] [place] [address] Nitrite Auto test strip Ql (U) Negative Normal NEGATIVE [facility] Comment on above: Performed By: #### 5 8077-9 #### ALVARO CROUCH ([id number]) [facility] ([facility]) [address] [place] [address] pH (U) 5.0 [pH] Normal 5.0, 5.5, 6.0, 6.5, 7.0, 7.5, 8.0 [facility] Comment on above: Performed By: #### 5 8077-9 #### ALVARO CROUCH ([id number]) [facility] ([facility]) [address] [place] [address] Protein (U) [Mass/Vol] Negative Normal NEGATIVE [facility] Comment on above: Performed By: #### 5 8077-9 #### ALVARO CROUCH ([id number]) [facility] ([facility]) [address] [place] [address] RBC (U) [#/Vol] Negative Normal NEGATIVE [facility] Comment on above: Performed By: #### 5 8077-9 #### ALVARO CROUCH ([id number]) [facility] ([facility]) [address] [place] [address] Specific gravity (U) [Rel density] 1.015 Normal 1.005-1.035 [facility] Comment on above: Performed By: #### 5 8077-9 #### ALVARO CROUCH ([id number]) [facility] ([facility]) [address] [place] [address] Urobilinogen (U) [Mass/Vol] mg/dL Normal <2.0 [facility] Comment on above: Performed By: #### 5 8077-9 #### ALVARO CROUCH ([id number]) [facility] ([facility]) [address] [place] [address] Glucose Test strip manual (B ld) [Mass/Vol]on 06-18-2023 Glucose [Mass/Vol] 102 mg/dL High 74 - 99 mg/dL [facility] Interpretation and review of laboratory results Abnormal [facility] Glucose [Mass/Vol] 102 mg/dL High 74-99 [facility] Comment on above: Performed By: #### 2 341-6 ####ANDI Cotter ([id number])[facility] ([facility])[address] [place] [address] Clinical Event Note-Discharg e discussionon 06-17-2023 Clinical Event Note-Discharge discussion Clinical Event: Clinical Event Note: TopicDischarge discussion Details I have discussed with the patient along with 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 [address] CBCon 06-16-2023 Erythrocyte distribution width (RBC) [Ratio] 13.6 % Normal 11.5 - 14.5 [facility] Comment on above: Reference Range: 11. 5 - 14.5 Performed By: #### C BC ####[id number] [place] [address] Hematocrit (Bld) [Volume fraction] 38.3 % Normal 36.0 - 46.0 [facility] Comment on above: Reference Range: 36. 0 - 46.0 Performed By: #### C BC ####[id number] [place] [address] Hemoglobin (Bld) [Mass/Vol] 12.2 g/dL Normal 12.0 - 16.0 [facility] Comment on above: Reference Range: 12. 0 - 16.0 Performed By: #### C BC ####[id number] [place] [address] MCHC (RBC) [Mass/Vol] 31.9 g/dL Low 32.0 - 36.0 [facility] Comment on above: Reference Range: 32. 0 - 36.0 Performed By: #### C BC ####[id number] [place] [address] MCV (RBC) [Entitic vol] 92 fL Normal 80 - 100 [facility] Comment on above: Performed By: #### C BC ####[id number] [place] [address] NUCLEATED RBC 0.0 /100 WBC Normal 0.0-0.0 [facility] Comment on above: Performed By: #### C BC ####[id number] [place] [address] Platelets (Bld) [#/Vol] 380 10*3/uL Normal 150 - 450 [facility] Comment on above: Performed By: #### C BC ####[id number] [place] [address] RBC 4.15 x10E12/L Normal 4.00 - 5.20 [facility] Comment on above: Performed By: #### C BC ####[id number] [place] [address] WBC (Bld) [#/Vol] 5.8 10*3/uL Normal 4.4 - 11.3 [facility] Comment on above: Performed By: #### C BC ####[id number] [place] [address] CBC panel Auto (Bld)on 06-16 Interpretation and review of laboratory results Abnormal [facility] Nucleated RBC/100 WBC (Bld) [Ratio] 0.0 % [facility] RBC (Bld) [#/Vol] 4.15 10*6/uL [facility] COMPREHENSIVE PANELon 2022 Albumin [Mass/Vol] 3.8 g/dL Normal 3.4 - 5.0 [facility] Comment on above: Performed By: #### E MRAD #### NO LOCATION NEEDED ALP [Catalytic activity/Vol] 65 U/L Normal 33 - 110 [facility] Comment on above: Performed By: #### E MRAD #### NO LOCATION NEEDED ALT [Catalytic activity/Vol] 41 U/L Normal 7 - 45 [facility] Comment on above: Result Comment: Evelyn ents treated with Sulfasalazine may generate falsely decreased results for ALT. Performed By: #### E MRAD #### NO LOCATION NEEDED Anion gap [Moles/Vol] 18 mmol/L Normal 10 - 20 [facility] Comment on above: Performed By: #### E MRAD #### NO LOCATION NEEDED AST [Catalytic activity/Vol] 28 U/L Normal 9 - 39 [facility] Comment on above: Performed By: #### E MRAD #### NO LOCATION NEEDED Bilirubin [Mass/Vol] 0.3 mg/dL Normal 0.0 - 1.[address] [facility] Comment on above: Performed By: #### E MRAD #### NO LOCATION NEEDED Calcium [Mass/Vol] 8.9 mg/dL Normal 8.6 - 10.6 [facility] Comment on above: Performed By: #### E MRAD #### NO LOCATION NEEDED Chloride [Moles/Vol] 98 mmol/L Normal 98 - [address] [facility] Comment on above: Performed By: #### E MRAD #### NO LOCATION NEEDED Creatinine [Mass/Vol] 0.69 mg/dL Normal 0.50 - 1.05 [facility] Comment on above: Reference Range: 0.5 0 - 1.05 Performed By: #### E MRAD #### NO LOCATION NEEDED eGFR FEMALE >90 Normal >90 [facility] Comment on above: Result Comment: CALC ULATIONS OF ESTIMATED GFR ARE PERFORMED USING THE 2020 CKD-EPI STUDY REFIT EQUATION WITHOUT THE RACE VARIABLE FOR THE IDMS-TRACEABLE CREATININE METHODS. https://jasn.asnjournals.org/content//ASN.951668 5979 Performed By: #### E MRAD #### NO LOCATION NEEDED Glucose [Mass/Vol] 163 mg/dL High 74 - 99 [facility] Comment on above: Performed By: #### E MRAD #### NO LOCATION NEEDED HCO3 (Bld) [Moles/Vol] 26 mmol/L Normal 21 - 32 [facility] Comment on above: Performed By: #### E MRAD #### NO LOCATION NEEDED Potassium [Moles/Vol] 3.7 mmol/L Normal 3.5 - 5.3 [facility] Comment on above: Performed By: #### E MRAD #### NO LOCATION NEEDED Protein [Mass/Vol] 6.5 g/dL Normal 6.4 - 8.2 [facility] Comment on above: Performed By: #### E MRAD #### NO LOCATION NEEDED Sodium [Moles/Vol] 138 mmol/L Normal 136 - 145 [facility] Comment on above: Performed By: #### E MRAD #### NO LOCATION NEEDED Urea nitrogen [Mass/Vol] 14 mg/dL Normal 6 - 23 [facility] Comment on above: Performed By: #### E [...] Updated: 16-Jun-2023 18:48 by Chastity León) Normal [facility] Clinical Event Note-Pain man agement consulton 06-16-2023 [...] at this time Objective Information T PRBPMAPSpO2 [id number] % Date/Time06/16 7: 7: 3: 7: 7: [...] normal Behavior: Behavior normal Electronic Signatures: Tayler Jackson () (Signed 17-Jun-2023 09:07) Authored: Clinical Event Note Co-Signer: Clinical Event Note Ravinder Hardy (Fellow)) (Signed 16-Jun-2023 12:32) Authored: Clinical Event Note Last Updated: 17-Jun-2023 09:07 by Tayler Jackson) Normal [facility] Comprehensive metabolic 2000 panelon 06-16-2023 GFR Female >90 - PINF [facility] Comment on above: CALCULATIONS OF ESUTARDO MATED GFR ARE PERFORMED USING THE 2020 CKD-EPI STUDY REFIT EQUATION WITHOUT THE RACE VARIABLE FOR THE IDMS-TRACEABLE CREATININE METHODS. https://jasn.asnjournals.org/content/early//ASN.564848 3579 Interpretation and review of laboratory results Abnormal [facility] Consult-Gastroenterologyon 0 06-16-2023 Consult-Gastroenterol ogy Service: Service: Gastroenterology Consult: Consult requested by (Attending Name): Chastity León Reason: chronic pancreatitis, admitted with abdominal pain, asking for 2nd opinion History of Present Illness: HPI: DOROTHEA RUTLEDGE is a 47 year [...] 10 double shots on one occasion) until 2013, and started to have yearly pancreatitis since [...] [place] [phone]. Thank you. Consult Status: Consult Status (select all that apply): initial consult complete, will follow Consult Order ID: [id number] Attestation: Note Completion: I am a: Resident/Fellow [...] the note. I personally evaluated the patient [id number] Electronic Signatures: Uvaldo Chavez) (Signed 11-Jul-2023 05:05) Authored: Assessment/Recommendati ons, Note Completion Co-Signer: Service, History of Present Illness, Review Family/Social History and ROS, Allergies, Objective, Assessment/Recommendati ons, Note Completion Sapna Hernandez (Fellow)) (Signed 16-Jun-2023 18:30) Authored: Service, History of Present Illness, Review Family/Social History and ROS, Allergies, Obje (more content not included)... Normal [facility] Discharge [id number] 023 Discharge Profile2 Discharge Orders: Anticipated Discharge Date: Anticipated Discharge [id number] Problem List: Additional Dx: Chronic pancreatitis: Catalog [...] at 16-Jun-2023 14:52:26 Appointments: Follow-Up Appointment 01: Physician/Dept/[facility] ast[facility]ology clinic Scheduled Date/[id number] 09:40 [facility] Follow-Up Appointment 02: Physician/Dept/[facility]ital [facility] management clinic Call to Schedule in2 weeks Scheduled Date/[id number] 13:30 [facility]. Electronic Signatures: Chastity León) (Signed 16-Jun-2023 16:38) Authored: Discharge Orders, Provider FINAL REVIEW of Orders, Appointments, Gold Form - Commercial Account Manager Summary Last Updated: 16-Jun-2023 16:38 by Chastity León) Normal [facility] Laboratory - Chemistry and C hemistry - challengeon 06-16-2023 Albumin BCP dye [Mass/Vol] 3.8 g/dL 3.4 - 5.0 g/dL [facility] ALT With P-5'-P [Catalytic activity/Vol] 41 U/L 7 - 45 U/L [facility] Comment on above: Patients treated wit h Sulfasalazine may generate falsely decreased results for ALT. Patients treated wit h Sulfasalazine may generate falsely decreased results for ALT. AST With P-5'-P [Catalytic activity/Vol] 28 U/L 9 - 39 U/L [facility] CO2 [Moles/Vol] 26 mmol/L 21 - 32 mmol/L [facility] Laboratory - Hematology and Cell countson 06-16-2023 RBC (Bld) [#/Vol] 4.15 {x10E12/L} See Below [facility] Work Phone: Comment on above: Reference Range: 4.0 0 - 5.20 No Panel Informationon 06-16 [facility] 0.0 {/100_WBC} 0.0-0.0 [facility] Work Phone: >90 >90 [facility] Work Phone: Comment on above: CALCULATIONS OF ESTUARDO MATED GFR ARE PERFORMED USING THE 2020 CKD-EPI STUDY REFIT EQUATION WITHOUT THE RACE VARIABLE FOR THE IDMS-TRACEABLE CREATININE METHODS.https://jasn.asnjournals.org/content/early/ N.2902309119 Order Reconciliationon 06-16 Order Reconciliation Page 1 [...] tab(s) orally (more content not included)... Normal [facility] Admission Risk Screen - Adul ton 06-15-2023 [...] AlertFor Ebola-like Symptoms: Isolate Patient and Notify Provider/Title Agent For Contact: Notify Provider/Title Agent Advance Directive: Advance Directive/DNRno Advance Directive Information [...] instruction; written material Cultural Considerationsnone Developmental Considerationsnone Episcopalian Considerationsnone Learning Assessment (Other Learner): Other learner availableno Depression Screen: During the past month, have you often been bothered by feeling down, depressed or hopelessno During the past month, have you often had little interest or pleasure in doing thingsno Have you had any thoughts of harming anyone elseno (1) [place] Suicide: Risk Screen Not Applicable/Able to Answerable to be screened In the Past Month: Have you wished you were or could go to sleep and not wake upno(1) In the Past Month: Have you had any actual thoughts of killing yourself no(1) Lifetime: Have you ever done, started to do, or prepared to do anything to end your lifeno [place] Suicide Risknegative Adult Nutrition Screen: Have you [...] there a (more content not included)... Normal [facility] BD CT ABDOMEN AND PELVIS W I V CONTRASTon 06-15-[address] ABDOMEN AND PELVIS W IV CONTRAST Patient Name: DOROTHEA RUTLEDGE STUDY: CT ABDOMEN AND PELVIS W IV CONTRAST; 06/15/2023 2:33 am INDICATION: epigastric pain h/o necrotizing pancreatitis, Lie Flat: Yes . COMPARISON: CT abdomen pelvis 05/12/2023 ACCESSION NUMBER(S): [id number] ORDERING CLINICIAN: ANGELA MILES TECHNIQUE: CT of [...] as stated. This study was interpreted at [place], [place]. MACRO: None Electronically signed by: YAHAIRA DELVALLE MD Normal [facility] C-REACTIVE PROTEINon 023 C-REACTIVE PROTEIN 0.91 mg/dL Normal [facility] Comment on above: Result Comment: REF VALUE < 1.00 Performed By: #### C RP #### [facility] [id number] [place] [address] C-Reactive Proteinon 023 CRP [Mass/Vol] 0.91 mg/dL [facility] Comment on above: REF VALUE < 1.00 CRP [Mass/Vol]on 06-15-[address] [facility] [address] Abdomen and Pelvis W [...] as stated. This study was interpreted at [place], [place]. MACRO: None [facility] Interpreted By: YAHAIRA RUSSO MD and ERICK PENNY DO Patient Name: DOROTHEA RUTLEDGE STUDY: CT ABDOMEN AND PELVIS W IV CONTRAST; 06/15/2023 2:33 am INDICATION: epigastric pain h/o necrotizing pancreatitis, Lie Flat: Yes . COMPARISON: CT abdomen pelvis 05/12/2023 ACCESSION NUMBER(S): [id number] ORDERING CLINICIAN: ANGELA MILES TECHNIQUE: CT of [...] The abdominal wall soft tissues appear normal. [facility] Yahaira Delvalle MD - 06/15/2023 Interpreted By: YAHAIRA DELVALLE MD and ERICK PENNY DO Patient Name: DOROTHEA RUTLEDGE STUDY: CT ABDOMEN AND PELVIS W IV CONTRAST; 06/15/2023 2:33 am INDICATION: epigastric pain h/o necrotizing pancreatitis, Lie Flat: Yes . COMPARISON: CT abdomen pelvis 05/12/2023 ACCESSION NUMBER(S): [id number] ORDERING CLINICIAN: ANGELA MILES TECHNIQUE: CT of [...] as stated. This study was interpreted at [facility], [place], [place]. MACRO: None [facility] Work Phone: Radiology Study observation (narrative) [facility] Work Phone: CT Abdomen and Pelvis W cont rast IVOrdered By: Yahaira Delvalle on 06-15-2023 [facility] Work Phone: CT Abdomen and Pelvis with I V Contraston 06-15-2023 CT Abdomen and Pelvis W contrast IV Normal [facility] Work Phone: Clinical Event Note-GI consu lt [...] to follow. Please page GI consult pager [phone] for any questions during the daytime/weekdays, and the GI call pager, [phone] after 5pm and on weekends/holidays. Electronic Signatures: Sapna Hernandez ( (Fellow)) (Signed 15-Jun-2023 23:29) Authored: Clinical Event Note Last Updated: 15-Jun-2023 23:29 by Sapna Hernandez ( (Fellow)) Normal [facility] DRUG SCREEN,URINEon 06-15-20 23 AMPHETAMINE SCREEN,U Negative Normal NEGATIVE [facility] Comment on above: Result Comment: CUTO FF LEVEL: 500 NG/ML Cross-reactivity has been reported with high concentrations of the following drugs: buproprion, chloroquine, chlorpromazine, ephedrine, mephentermine, fenfluramine, phentermine, phenylpropanolamine, pseudoephedrine, and propranolol. Performed By: #### E MRAD #### NO LOCATION NEEDED BARBITURATES SCREEN,U Negative Normal NEGATIVE [facility] Comment on above: Result Comment: CUTO FF LEVEL: 200 NG/ML Performed By: #### E MRAD #### NO LOCATION NEEDED BENZODIAZEPINES SCREEN,U Negative Normal NEGATIVE [facility] Comment on above: Result Comment: CUTO FF LEVEL: 200 NG/ML Performed By: #### E MRAD #### NO LOCATION NEEDED CANNABINOIDS SCREEN,U Negative Normal NEGATIVE [facility] Comment on above: Result Comment: CUTO FF LEVEL: 50 NG/ML Performed By: #### E MRAD #### NO LOCATION NEEDED COCAINE METABOLITE SCREEN,U Negative Normal NEGATIVE [facility] Comment on above: Result Comment: CUTO FF LEVEL: 150 NG/ML Performed By: #### E MRAD #### NO LOCATION NEEDED DRUG SCREEN COMMENT SEE BELOW Normal [facility] Comment on above: Result Comment: Drug screen results are presumptive and should not be used to assess compliance with prescribed medication. Contact the performing [facility] laboratory to add-on definitive confirmatory testing [...] LOCATION NEEDED FENTANYL SCREEN,URINE Negative Normal NEGATIVE [facility] Comment on above: Result Comment: CUTO FF LEVEL: 5 NG/ML Performed By: #### E MRAD #### NO LOCATION NEEDED OPIATES SCREEN,U Positive Abnormal NEGATIVE [facility] Comment on above: Result Comment: CUTO FF LEVEL: 300 NG/ML The opiate screen does not detect fentanyl, meperidine, or tramadol. Oxycodone is not consistently detected (refer to Oxycodone Screen, Urine result). Performed By: #### E MRAD #### NO LOCATION NEEDED OXYCODONE SCREEN,U Negative Normal NEGATIVE [facility] Comment on above: Result Comment: CUTO FF LEVEL: 100 NG/ML This test will accurately detect both oxycodone and oxymorphone. Performed By: #### E MRAD #### NO LOCATION NEEDED PCP SCREEN,U Negative Normal NEGATIVE [facility] Comment on above: Result Comment: CUTO FF LEVEL: 25 NG/ML Cross-reactivity has been reported with dextromethorphan. Performed By: #### E MRAD #### NO LOCATION NEEDED Amphetamines Screen Ql (U) Negative NEGATIVE [facility] Comment on above: CUTOFF LEVEL: 500 NG /ML Cross-reactivity has been reported with high concentrations of the following drugs: buproprion, chloroquine, chlorpromazine, ephedrine, mephentermine, fenfluramine, phentermine, phenylpropanolamine, pseudoephedrine, and propranolol. Barbiturates Screen Ql (U) Negative NEGATIVE [facility] Comment on above: CUTOFF LEVEL: 200 NG /ML BENZODIAZEPINE (PRESENCE) IN URINE BY SCREEN METHOD Negative NEGATIVE [facility] Comment on above: CUTOFF LEVEL: 200 NG /ML Cannabinoids Screen Ql (U) Negative NEGATIVE [facility] Comment on above: CUTOFF LEVEL: 50 NG/ ML Cocaine Ql (U) Negative NEGATIVE [facility] Comment on above: CUTOFF LEVEL: 150 NG /ML DRUG SCREEN COMMENT URINE SEE BELOW [facility] Comment on above: Drug screen results are presumptive and should not be used to assess compliance with prescribed medication. Contact the performing [facility] laboratory to add-on definitive confirmatory testing [...] directors. fentaNYL+Norfentanyl Screen Ql (U) Negative NEGATIVE [facility] Comment on above: CUTOFF LEVEL: 5 NG/M L Interpretation and review of laboratory results Abnormal [facility] Opiates Screen Ql (U) Positive Abnormal NEGATIVE [facility] Comment on above: CUTOFF LEVEL: 300 NG /ML The opiate screen does not detect fentanyl, meperidine, or tramadol. Oxycodone is not consistently detected (refer to Oxycodone Screen, Urine result). oxyCODONE+oxyMORphone Screen Ql (U) Negative NEGATIVE [facility] Comment on above: CUTOFF LEVEL: 100 NG /ML This test will accurately detect both oxycodone and oxymorphone. Phencyclidine Ql (U) Negative NEGATIVE [facility] Comment on above: CUTOFF LEVEL: 25 NG/ ML Cross-reactivity has been reported with dextromethorphan. [facility] Discharge Planning [id number] 0 06-15-2023 Discharge Planning Note2 Discharge Planning: Discharge Barriersnone Planned Dispositionhome Discharge Destinationhome AMPAC < 20no Anticipated Discharge [id number] Discharge Planning 06/15/23 1121 Transitional Care Coordination [...] TCC (doc halo) Assessment: Discharge Planning Assessment [id number] Discharge Planning Assessment Completed byMolly Powell RN, TCC Primary Contact Name and NumberLizz Dockery (mother) [phone] Prior Level of FunctioningIndependent Lives Withsignificant other(1) Living Arrangementshouse(1) Stated Reason for Admissioninflamed cyst on pancreas(1) Arrived Fromemergency department Karen Rivera NP [facility] Recent Falls/ Injury/ Need Assist with AmbulationDenies [...] Home O2 SupplierNA Electronic Signatures: Molly Powell (RN) (Signed 15-Jun-2023 11:26) Authored: Discharge Planning, Assessment Last Updated: 15-Jun-2023 11:26 by Molly Powell (RN) References: 1. Data Referenced From Patient Profile - Adult v2 15-Jun-2023 04:21 Normal [facility] EMR ADDONon 06-15-2023 ADDON CONFIRMATION REQUEST REC'D Normal [facility] Comment on above: Performed By: #### E MRAD #### NO LOCATION NEEDED Electrocardiogram 12 LeadOrd ered By: Zofia Young on 06-15-2023 Atrial Rate 87 BPM [facility] Work Phone: P [place] 50 degrees [facility] Work Phone: P Offset 201 ms [facility] Work Phone: P Onset 149 ms [facility] Work Phone: HI Interval 148 ms [facility] Work Phone: Q Onset 223 ms [facility] Work Phone: QRS Count 14 beats [facility] Work Phone: QRS Duration 88 ms [facility] Work Phone: QT Interval 378 ms [facility] Work Phone: QTC Calculation(Bazett) 454 [facility] Work Phone: QTC Fredericia 427 [facility] Work Phone: R [place] 6 degrees [facility] Work Phone: T [place] 32 degrees [facility] Work Phone: T Offset 412 ms [facility] Work Phone: Ventricular Rate 87 BPM [facility] Work Phone: [facility] Work Phone: Electrocardiogram 12 Leadon 06-15-2023 Confirmed by Zofia Young ([id number]) on 06/15/2023 2:07:55 AM Zofia Tineo, LOCOMOTIVE INSPECTOR- RAIL ASSEMBLER - 06/15/2023 Confirmed by Zofia Young ([id number]) on 06/15/2023 2:07:55 AM [facility] Work Phone: Laboratory - Drug toxicology on 06-15-2023 Amphetamines Screen Ql (U) Negative NEGATIVE [facility] [...] Ql (U) Negative NEGATIVE [facility] Work Phone: Comment on above: CUTOFF LEVEL: 100 NG /ML This test will accurately detect both oxycodone and oxymorphone. Phencyclidine Ql (U) Negative NEGATIVE [facility] Work Phone: Comment on above: CUTOFF LEVEL: 25 NG/ ML Cross-reactivity has been reported with dextromethorphan. No Panel Informationon 06-15 SEE BELOW [facility] Work Phone: Comment on above: Drug screen results are presumptive and should not be used to assess compliance with prescribed medication. Contact the performing [facility] laboratory to add-on definitive confirmatory testing [...] (Advanced Practice Nurse-Admit) done by Nancy Benedict (LOCOMOTIVE INSPECTOR-RAIL ASSEMBLER) ED to Observation - Reconciliation: 15-Jun-2023 05:51 by: Nancy Benedict (LOCOMOTIVE INSPECTOR-RAIL ASSEMBLER) ED to Observation - AutoLinked: 15-Jun-2023 05:51 by: Nancy Benedict (LOCOMOTIVE INSPECTOR-RAIL ASSEMBLER) Home MedicationsEnteredLast Dose TakenReconciled with current Order Reconciliation Comment/ Additional Information Abilify 10 mg oral tablet 1 tab(s) orally once a day 15-Jun-2023 NoLongerTaking acetaminophen 500 mg oral tablet 2 tab(s) orally every 8 hours, As Needed for [id number]-8075 Acetaminophen Tablet (TYLENOL)DOSE = 975 mg Oral [...] oral tablet 1 tab(s) orally once a ulr74-Tif-8505 Reviewed and Held benzonatate 100 mg oral capsule 1 cap(s) orally 3 times a sjs48-Gco-8966 Reviewed and Held benztropine 0.5 mg oral tablet 1 tab(s) orally once a day (at bedtime), As Needed for [id number]-Noe-8831 Reviewed and Held cholecalciferol 1250 mcg (50,000 intl units) oral capsule 1 cap(s) orally once a week on Reviewed and Held cloNIDine 0.2 mg oral tablet 1 tab(s) orally once a [id number]-Czn-4718 cloNIDine (CATAPRES) TabletDOSE = 0.2 mg Oral DailycloNIDine 0.2 mg oral tablet continued as the inpatient order cloNIDine (CATAPRES) Cogentin orally 2 times a jek37-Fob-3262 Reviewed and Held Depakote 250 mg oral [...] (at bedtime), As Needed - for allergy ndhihxhj62-Iiy-9562 diphenhydrAMINE Capsule (BENADRYL)DOSE = 25 mg Oral Every 4 Hours, PRN Allergy SymptomsdiphenhydrAMINE 25 mg oral tablet continued as the inpatient order diphenhydrAMINE Effexor 225 milligram(s) orally once a [id number]-Wbs-4591 Venlafaxine Extended Release Capsule, Extended Release (EFFEXOR XR)DOSE = 225 mg Oral DailyEffexor continued as the inpatient order Venlafaxine Extended Release fenofibrate 145 mg oral tablet 1 tab(s) orally once a ksw92-Kgn-7778 Fenofibrate Tablet (LOFIBRA)DOSE = 160 mg Oral DailyNotes from Pharmacy: Substitution for Fenofibrate 145 mg Capsule Dailyfenofibrate 145 mg oral tablet continued as the inpatient order Fenofibrate furosemide 40 mg oral tablet 1 tab(s) orally once a ghc29-Xkj-6367 Furosemide Tablet (LASIX)DOSE = 40 mg Oral Dailyfurosemide 40 mg oral tablet continued as the inpatient order Furosemide hydroCHLOROthiazide 25 mg oral tablet 1 tab(s) orally once a mhs57-Bxh-0483 hydroCHLOROthiazide Tablet (ESIDRIX)DOSE = 25 mg Oral Daily hydroCHLOROthiazide 25 mg oral tablet continued as the inpatient order hydroCHLOROthiazide lacosamide 100 mg oral tablet take 1 tablet by mouth once in the morning and 2 tablets in the oickpfk40-Xww-5123 Lacosamide Tablet (VIMPAT)DOSE = 200 mg Oral Every Nightlacosamide 100 mg oral tablet continued as the inpatient order Lacosamide; lacosamide 100 mg oral tablet continued as the inpatient order Lacosamide lacosamide 100 mg oral tablet take 1 tablet by mouth once in the morning and 2 tablets in the -[id number]-0044 Lacosamide Tablet (VIMPAT)DOSE = 100 mg Oral Every Morninglacosamide 100 mg oral tablet continued as the inpatient order Lacosamide; lacosamide 100 mg oral tablet continued as the inpatient order Lacosamide lactulose 10 g/15 mL oral syrup 15 milliliter(s) orally 2 times a day, As Needed - for vyyhxslcshry25-Cij-5980 Reviewed and Held Lasix 40 mg oral tablet 1 tab(s) orally once a day 15-Jun-2023 NoLongerTaking Linzess 290 mcg oral capsule 1 cap(s) orally once a hfh94-Ihi-9375 Linaclotide Capsule (LINZESS)DOSE = 290 microgram(s) Oral [...] bedtime), As Needed - for sleep / sowlfaqh27-Lda-9944 Reviewed and Held menthol-benzocaine 3.6 mg-15 mg mucous membrane lozenge mucous membrane 15-Jun-2023 Reviewed and Held methenamine hippurate 1 g oral tablet 1 tab(s) orally once a wmv50-Pha-0012 Held and Reconciled, Review at Next Reconciliation metopr (more content not included)... Normal [facility] Patient Profile - Adult v2on 06-15-2023 Patient Profile - Adult v2 Profile: Initial Info: How to be AddressedAmanda(1) Spoken Language PreferredEnglish (1) Stated Reason for Admissioninflamed cyst on pancreas Wants Family/Rep Notified of Admissionyes, primary contact Notify PCPnotify PCP Informed of Patient [place] Status[place](1) Patient Belongingsremains with patient Medications Brought to Hospitalno General Health: Blood Avoidance/Restrictionsn one(1) Weight in kg96 kilogram(s)(2) Weight in fvh563.6 pound(s) Weight Methodestimated Scale Typebed Height in [...] other Living Arrangementshouse Services Anticipated at Transitioncase structural engineering project manager Anticipated Transition Tohome Significant IndicatorsComplete Information Review: Allergies, Home Meds and Significant Events have been Reviewed and Verified with Patient/Familyyes ALLERGY, INTOLERANCE, ADVERSE EVENT: Allergies: penicillin: Drug, Rash, Active Neurontin: Drug, Swelling/Edema, Active sulfa drugs: Drug Category, Rash, Active Electronic Signatures: Nasreen Fernández (RN) (Signed 15-Jun-2023 04:27) Authored: Initial Info, General Health, RSP Based Care, Substance, Health Mgmt, Relationship/Environ, Additional Information Last Updated: 15-Jun-2023 04:27 by Nasreen Fernández (KAY) References: 1. Data Referenced From Patient Profile - Adult v2 13-May-2023 00:04 2. Data Referenced From 1. Vital Signs 14-Jun-2023 14:34 3. Data Referenced From Triage - ED 14-Jun-2023 14:34 Normal [facility] Provider Note - ED Care Castellanos joshuaon 06-15-2023 Provider Note - ED Care Transition [...] Code:R10.9 Name:Pancreatitis Code:K85.90 Disposition: hospitalized Admit to: [facility]. Admitting Considerations: Condition on Disposition: stable ATTESTATION [...] Impression, Attestation, Chart Review, Scores Maureen Grace (Resident)) (Signed 15-Jun-2023 03:38) Authored: ED Notes, Clinical Impression, Attestation, Chart Review, Scores Last Updated: 16-Jun-2023 05:21 by Camilo Larios) Normal [facility] URINALYSISon 06-15-2023 Appearance (U) CLEAR Normal CLEAR [facility] Comment on above: Performed By: #### U A ####[id number] [place] [address] Bilirubin Ql (U) Negative Normal NEGATIVE [facility] Comment on above: Performed By: #### U A ####[id number] [place] [address] Color (U) YELLOW Normal STRAW,YELLOW [facility] Comment on above: Performed By: #### U A ####[id number] [place] [address] Glucose Ql (U) Negative Normal NEGATIVE [facility] Comment on above: Performed By: #### U A ####[id number] [place] [address] Hemoglobin Ql (U) Negative Normal NEGATIVE [facility] Comment on above: Performed By: #### U A ####[id number] [place] [address] Ketones Ql (U) Negative Normal NEGATIVE [facility] Comment on above: Performed By: #### U A ####[id number] [place] [address] Leukocyte esterase Test strip Ql (U) Negative Normal NEGATIVE [facility] Comment on above: Performed By: #### U A ####[id number] [place] [address] Nitrite Ql (U) Negative Normal NEGATIVE [facility] Comment on above: Performed By: #### U A ####[id number] [place] [address] pH (U) 6.0 [pH] Normal 5.0 - 8.0 [facility] Comment on above: Performed By: #### U A ####[id number] [place] [address] Protein Ql (U) Negative Normal NEGATIVE [facility] Comment on above: Performed By: #### U A ####[id number] [place] [address] Specific gravity (U) [Rel density] >1.060 Abnormal 1.005 - 1.035 [facility] Comment on above: Specific gravity of >1.060 may be falsely elevated due to interferences with measurement. If clinically indicated, repeat testing with an alternative method is available by contacting the laboratory within 24 hours. Result Comment: [facility] of >1.060 may be falsely elevated due to interferences with measurement. If clinically indicated, repeat testing with an alternative method is available by contacting the laboratory within 24 hours. Performed By: #### U A ####[id number] [place] [address] Urobilinogen (U) [Mass/Vol] mg/dL Normal 0.0 - 1.9 [facility] Comment on above: Performed By: #### U A ####[id number] [place] [address] Urinalysison 06-15-2023 Color (U) YELLOW See Below [facility] Work Phone: Comment on above: Reference Range: STR AW,YELLOW Glucose Ql (U) Negative NEGATIVE [facility] Work Phone: Ketones Ql (U) Negative NEGATIVE [facility] Work Phone: Leukocyte esterase Test strip Ql (U) Negative NEGATIVE [facility] Work Phone: pH (U) 6.0 [pH] 5.0 - 8.0 [facility] Work Phone: Protein (U) [Mass/Vol] Negative NEGATIVE [facility] Work Phone: RBC (U) [#/Vol] Negative NEGATIVE [facility] Work Phone: Specific gravity (U) [Rel density] >1.060 Abnormal See Below [facility] Work Phone: Comment on above: Reference Range: 1.0 05 - 1.035 Specific gravity of >1.060 may be falsely elevated due to interferences with measurement. If clinically indicated, repeat testing with an alternative method is available by contacting the laboratory within 24 hours. Urinalysis Negative NEGATIVE [facility] Work Phone: Comment on above: CUTOFF LEVEL: 5 NG/M L Urinalysis <2.0 0.0 - 1.9 [facility] Work Phone: Urinalysis CLEAR CLEAR [facility] Work Phone: Urinalysis complete panel (U )on 06-15-2023 Bilirubin (U) [Mass/Vol] Negative NEGATIVE [facility] Glucose Auto test strip (U) [Mass/Vol] Negative NEGATIVE mg/dL [facility] Interpretation and review of laboratory results Abnormal [facility] Ketones (U) [Mass/Vol] Negative NEGATIVE mg/dL [facility] Leukocyte esterase Auto test strip Ql (U) Negative NEGATIVE [facility] Nitrite Auto test strip Ql (U) Negative NEGATIVE [facility] Protein (U) [Mass/Vol] Negative NEGATIVE mg/dL [facility] RBC (U) [#/Vol] Negative NEGATIVE [facility] C Reactive Protein, Serumon 06-14-2023 CRP [Mass/Vol] 0.91 mg/dL [facility] Work Phone: Comment on above: REF VALUE< 1.00 CBC AND DIFFERENTIALon 06-14 % AUTOMATED IMMATURE GRAN 0.5 % Normal 0.0 - 0.9 [facility] Comment on above: Result Comment: Debbie ture Granulocyte Count (IG) includes promyelocytes, myelocytes and metamyelocytes but does not include bands. Percent differential counts (%) should be interpreted in the context of the absolute cell counts (cells/L). Performed By: #### C BCDF #### [facility] [address] [place] [address] Basophils (Bld) [#/Vol] 0.06 10*3/uL Normal 0.00 - 0.10 [facility] Comment on above: Performed By: #### C BCDF #### [facility] [address] [place] [address] Basophils/100 WBC (Bld) 0.7 % Normal 0.0 - 2.0 [facility] Comment on above: Performed By: #### C BCDF #### [facility] [address] [place] [address] Eosinophils (Bld) [#/Vol] 0.28 10*3/uL Normal 0.00 - 0.70 [facility] Comment on above: Performed By: #### C BCDF #### [facility] [address] [place] [address] Eosinophils/100 WBC (Bld) 3.2 % Normal 0.0 - 6.0 [facility] Comment on above: Performed By: #### C BCDF #### [facility] [address] [place] [address] Erythrocyte distribution width (RBC) [Ratio] 13.2 % Normal 11.5 - 14.5 [facility] Comment on above: Performed By: #### C BCDF #### [facility] [address] [place] [address] Hematocrit (Bld) [Volume fraction] 36.0 % Normal 36.0 - 46.0 [facility] Comment on above: Performed By: #### C BCDF #### [facility] [address] [place] [address] Hemoglobin (Bld) [Mass/Vol] 11.9 g/dL Low 12.0 - 16.0 [facility] Comment on above: Performed By: #### C BCDF #### [facility] [address] [place] [address] Lymphocytes (Bld) [#/Vol] 2.09 10*3/uL Normal 1.20 - 4.80 [facility] Comment on above: Performed By: #### C BCDF #### [facility] [address] [place] [address] Lymphocytes/100 WBC (Bld) 23.8 % Normal 13.0 - 44.0 [facility] Comment on above: Performed By: #### C BCDF #### [facility] [address] [place] [address] MCHC (RBC) [Mass/Vol] 33.1 g/dL Normal 32.0 - 36.0 [facility] Comment on above: Performed By: #### C BCDF #### [facility] [address] [place] [address] MCV (RBC) [Entitic vol] 89 fL Normal 80 - 100 [facility] Comment on above: Performed By: #### C BCDF #### [facility] [address] [place] [address] Monocytes (Bld) [#/Vol] 0.58 10*3/uL Normal 0.10 - 1.00 [facility] Comment on above: Performed By: #### C BCDF #### [facility] [address] [place] [address] Monocytes/100 WBC (Bld) 6.6 % Normal 2.0 - 10.0 [facility] Comment on above: Performed By: #### C BCDF #### [facility] [address] [place] [address] Neutrophils (Bld) [#/Vol] 5.72 10*3/uL Normal 1.20 - 7.70 [facility] Comment on above: Performed By: #### C BCDF #### [facility] [address] [place] [address] Neutrophils/100 WBC (Bld) 65.2 % Normal 40.0 - 80.0 [facility] Comment on above: Performed By: #### C BCDF #### [facility] [address] [place] [address] NUCLEATED RBC 0.0 /100 WBC Normal 0.0-0.0 [facility] Comment on above: Performed By: #### C BCDF #### [facility] [address] [place] [address] Platelets (Bld) [#/Vol] 408 10*3/uL Normal 150 - 450 [facility] Comment on above: Performed By: #### C BCDF #### [facility] [address] [place] [address] RBC 4.06 x10E12/L Normal 4.00 - 5.20 [facility] Comment on above: Performed By: #### C BCDF #### [facility] [address] [place] [address] WBC (Bld) [#/Vol] 8.8 10*3/uL Normal 4.4 - 11.3 [facility] Comment on above: Performed By: #### C BCDF #### [facility] [address] [place] [address] CBC W Auto Differential pane l (Bld)on 06-14-2023 Immature granulocytes/100 WBC (Bld) 0.5 % 0.0 - 0.9 % [facility] Comment on above: Immature Granulocyte Count (IG) includes promyelocytes, myelocytes and metamyelocytes but does not include bands. Percent differential counts (%) should be interpreted in the context of the absolute cell counts (cells/L). Interpretation and review of laboratory results Abnormal [facility] Nucleated RBC/100 WBC (Bld) [Ratio] 0.0 % [facility] RBC (Bld) [#/Vol] 4.06 10*6/uL [facility] COMPREHENSIVE PANELon 2022 Albumin [Mass/Vol] 4.0 g/dL Normal 3.4 - 5.0 [facility] Comment on above: Performed By: #### C MP #### [facility] [address] [place] [address] ALP [Catalytic activity/Vol] 67 U/L Normal 33 - 110 [facility] Comment on above: Performed By: #### C MP #### [facility] [address] [place] [address] ALT [Catalytic activity/Vol] 34 U/L Normal 7 - 45 [facility] Comment on above: Result Comment: Evelyn ents treated with Sulfasalazine may generate falsely decreased results for ALT. Performed By: #### C MP #### [facility] [address] [place] [address] Anion gap [Moles/Vol] 17 mmol/L Normal 10 - 20 [facility] Comment on above: Performed By: #### C MP #### [facility] [address] [place] [address] AST [Catalytic activity/Vol] 20 U/L Normal 9 - 39 [facility] Comment on above: Performed By: #### C MP #### [facility] [address] [place] [address] Bilirubin [Mass/Vol] 0.4 mg/dL Normal 0.0 - 1.[address] [facility] Comment on above: Performed By: #### C MP #### [facility] [address] [place] [address] Calcium [Mass/Vol] 9.0 mg/dL Normal 8.6 - 10.6 [facility] Comment on above: Performed By: #### C MP #### [facility] [address] [place] [address] Chloride [Moles/Vol] 102 mmol/L Normal 98 - [address] [facility] Comment on above: Performed By: #### C MP #### [facility] [address] [place] [address] Creatinine [Mass/Vol] 0.61 mg/dL Normal 0.50 - 1.05 [facility] Comment on above: Performed By: #### C MP #### [facility] [address] [place] [address] eGFR FEMALE >90 Normal >90 [facility] Comment on above: Result Comment: CALC ULATIONS OF ESTIMATED GFR ARE PERFORMED USING THE 2020 CKD-EPI STUDY REFIT EQUATION WITHOUT THE RACE VARIABLE FOR THE IDMS-TRACEABLE CREATININE METHODS. https://jasn.asnjournals.org/content/early//ASN.172363 8927 Performed By: #### C MP #### [facility] [address] [place] [address] Glucose [Mass/Vol] 116 mg/dL High 74 - 99 [facility] Comment on above: Performed By: #### C MP #### [facility] [address] [place] [address] HCO3 (Bld) [Moles/Vol] 23 mmol/L Normal 21 - 32 [facility] Comment on above: Performed By: #### C MP #### [facility] [address] [place] [address] Potassium [Moles/Vol] 3.9 mmol/L Normal 3.5 - 5.3 [facility] Comment on above: Performed By: #### C MP #### [facility] [address] [place] [address] Protein [Mass/Vol] 6.5 g/dL Normal 6.4 - 8.2 [facility] Comment on above: Performed By: #### C MP #### [facility] [address] [place] [address] Sodium [Moles/Vol] 138 mmol/L Normal 136 - 145 [facility] Comment on above: Performed By: #### C MP #### [facility] [address] [place] [address] Urea nitrogen [Mass/Vol] 20 mg/dL Normal 6 - 23 [facility] Comment on above: Performed By: #### C MP #### [facility] [address] [place] [id number] CORONAVIRUS 2019 BY PCRon SARS-CoV-2 (COVID-19) RNA SANNA+probe Ql (Unsp spec) Not detected Normal Not Detected [facility] Comment on above: Result Comment: . This test has received FDA Emergency Use Authorization (EUA) and has been verified by [facility] ([facility]). This test is only authorized for the duration of time that circumstances exist to justify the authorization of the emergency use of in vitro diagnostic tests for the detection of SARS-CoV-2 virus and/or diagnosis of COVID-19 infection under section 564(b)(1) of the Act, 21 U.S.C. 360bbb-3(b)(1), unless the authorization is terminated or revoked sooner. [facility] is certified under CLIA-88 as qualified to perform high complexity testing. Testing is performed in the [facility] located [place] [address] [place] [address]. SARS-CoV-2/Flu/RSV Multiplex Test: Fact sheet for providers: https://www.fda.gov/media/301479/download Fact sheet for patients: https://www.fda.gov/media/140509/download Performed By: #### C OV19 #### [facility] [address] [place] [address] Lab Specimen Source Nasal, Nasopharyngeal Normal [facility] Comment on above: Performed By: #### C OV19 #### [facility] [address] [place] [address] CT Abdomen and Pelvis with I V [...] 13.2 % See Below [facility] Work Phone: Comment on above: Reference Range: 11. 5 - 14.5 Hematocrit (Bld) [Volume fraction] 36.0 % See Below [facility] Work Phone: Comment on above: Reference Range: 36. 0 - 46.0 Hemoglobin (Bld) [Mass/Vol] 11.9 g/dL below low threshold See Below [facility] Work Phone: Comment on above: Reference Range: 12. 0 - 16.0 Lymphocytes/100 WBC (Bld) 23.8 % See Below [facility] Work [...] 4.4 - 11.3 [facility] Work Phone: Complete Blood [...] 0.58 {x10E9/L} See Below [facility] Work Phone: Comment on above: Reference Range: 0.1 0 - 1.00 Complete Blood Count + Differential 2.09 {x10E9/L} See Below [facility] Work Phone: Comment on above: Reference Range: 1.2 0 - 4.80 Complete Blood Count + Differential 5.72 {x10E9/L} See Below [facility] [...] Differential 0.0 {/100_WBC} 0.0-0.0 [facility] Work Phone: Comprehensive metabolic 2000 panelon 06-14-2023 Albumin BCP dye [Mass/Vol] 4.0 g/dL 3.4 - 5.0 g/dL [facility] ALT With P-5'-P [Catalytic activity/Vol] 34 U/L 7 - 45 U/L [facility] Comment on above: Patients treated wit h Sulfasalazine may generate falsely decreased results for ALT. AST With P-5'-P [Catalytic activity/Vol] 20 U/L 9 - 39 U/L [facility] CO2 [Moles/Vol] 23 mmol/L 21 - 32 mmol/L [facility] GFR Female >90 - PINF [facility] Comment on above: CALCULATIONS OF ESTUARDO MATED GFR ARE PERFORMED USING THE 2020 CKD-EPI STUDY REFIT EQUATION WITHOUT THE RACE VARIABLE FOR THE IDMS-TRACEABLE CREATININE METHODS. https://jasn.asnjournals.org/content/early//ASN.801605 8709 Interpretation and review of laboratory results Abnormal [facility] Coronavirus 2019 RNA by PCR, Symptomaticon 06-14-2023 Coronavirus 2019 RNA by PCR, Symptomatic Not detected Normal See Below [facility] Work Phone: Comment on above: SOURCE: Nasal, Nasop haryngealReference Range: Not Detected.This test has received FDA Emergency Use Authorization (EUA) and has been verified by [facility] ([facility]). This test is only authorized for the duration of time that circumstances exist to justify the authorization of the emergency use of in vitro diagnostic tests for the detection of SARS-CoV-2 virus and/or diagnosis of COVID-19 infection under section 564(b)(1) of the Act, 21 U.S.C. 360bbb-3(b)(1), unless the authorization is terminated or revoked sooner. [facility] is certified under CLIA-88 as qualified to perform high complexity testing. Testing is performed in the [facility] located at [address] [place] [address].SARS-CoV-2/Flu/RSV Multiplex Test: Fact sheet for providers: https://www.fda.gov/media/540469/downloadFact sheet for patients: https://www.fda.gov/media/528319/download Covid 19 Resultson 3 SARS-CoV-2 (COVID-19) RNA [...] You may also be contacted by the [facility] to see if any of your close [...] or Naproxen (Aleve) can also be used. Ptei-biz-scjcgqh cough and cold medicines can be used according to the instructions on the package. Some rhqd-hpv-pgkgnit medicines also contain acetaminophen. Make sure you [...] water are not available, use alcohol-based hand mobile homes repairer. Avoid touching your eyes, nose, and mouth [...] 24 helio (more content not included)... Normal [facility] Electrocardiogram 12 Leadon 06-14-2023 Electrocardiogram 12 Lead Ventricular Rate 87 Atrial Rate 87 P-R Interval 148 QRS Duration 88 Q-T Interval 378 QTC Calculation(Bazett) 454 P [place] 50 R [place] 6 T [place] 32 QRS Count 14 Q Onset 223 P Onset 149 P Offset 201 T Offset 412 QTC Fredericia 427 Diagnosis Class Unknown Diagnosis Confirmed by Zofia Young ([id number]) on 06/15/2023 2:07:55 AM Normal [facility] LIPASEon 06-14-2023 Lipase [Catalytic activity/Vol] 67 U/L Normal 9 - 82 [facility] Comment on above: Venipuncture immedia tely after or during the administration of Metamizole may lead to falsely low results. Testing should be performed immediately prior to Metamizole dosing. J-pspnrb-h-benzoquinone imine (metabolite of Acetaminophen) will generate erroneously low results in samples for patients that have taken toxic doses of acetaminophen. Result Comment: Samreen puncture immediately after or during the administration of Metamizole may lead to falsely low results. Testing should be performed immediately prior to Metamizole dosing. A-xkzrth-k-benzoquinone imine (metabolite of Acetaminophen) will generate erroneously low results in samples for patients that have taken toxic doses of acetaminophen. Performed By: #### L IPAS #### [facility] [address] [place] [address] LIPASE Canceled Normal [facility] Comment on above: Order Comment: TEST LIPASE WAS CANCELLED, 06/14/2023 20:29 DUPLICATE ORDER. Result Comment: Samreen puncture immediately after or during the administration of Metamizole may lead to falsely low results. Testing should be performed immediately prior to Metamizole dosing. Performed By: #### L IPAS #### [facility] [address] [place] [id number] Laboratory - Chemistry and C hemistry - challengeon 06-14-2023 Albumin BCP dye [Mass/Vol] 4.0 g/dL 3.4 - 5.0 [facility] Work Phone: ALP [Catalytic activity/Vol] 67 U/L 33 - 110 [facility] Work Phone: ALT With P-5'-P [Catalytic activity/Vol] 34 U/L 7 - 45 [facility] Work Phone: Comment on above: Patients treated wit h Sulfasalazine may generate falsely decreased results for ALT. Anion gap [Moles/Vol] 17 mmol/L 10 - 20 [facility] Work Phone: AST With P-5'-P [Catalytic activity/Vol] 20 U/L 9 - 39 [facility] Work Phone: Bilirubin [Mass/Vol] 0.4 mg/dL 0.0 - 1.2 [facility] Work Phone: Calcium [Mass/Vol] 9.0 mg/dL 8.6 - 10.6 [facility] Work Phone: Chloride [Moles/Vol] 102 mmol/L 98 - 107 [facility] Work Phone: CO2 [Moles/Vol] 23 mmol/L 21 - 32 [facility] Work Phone: Creatinine [Mass/Vol] 0.61 mg/dL See Below [facility] Work Phone: Comment on above: Reference Range: 0.5 0 - 1.05 Glucose [Mass/Vol] 116 mg/dL above high threshold 74 - 99 [facility] Work Phone: Potassium [Moles/Vol] 3.9 mmol/L 3.5 - 5.3 [facility] Work Phone: Protein [Mass/Vol] 6.5 g/dL 6.4 - 8.2 [facility] Work Phone: Sodium [Moles/Vol] 138 mmol/L 136 - 145 [facility] Work Phone: Urea nitrogen [Mass/Vol] 20 mg/dL 6 - 23 [facility] Work Phone: Lipaseon 06-14-2023 Lipase [Catalytic activity/Vol] CANCELED [facility] Comment on above: Venipuncture immedia tely after or during the administration of Metamizole may lead to falsely low results. Testing should be performed immediately prior to Metamizole dosing. Result canceled by the ancillary. Lipase [Catalytic activity/V ol]on 06-14-2023 [facility] Lipase, Serumon 06-14-2023 Lipase [Catalytic activity/Vol] 67 U/L 9 - 82 [facility] Work Phone: Comment on above: Venipuncture immedia tely after or during the administration of Metamizole may lead to falsely low results. Testing should be performed immediately prior to Metamizole dosing. B-lztmcc-p-benzoquinone imine (metabolite of Acetaminophen) will generate erroneously low results in samples for patients that have taken toxic doses of acetaminophen. Lipase [Catalytic activity/Vol] Canceled [facility] Work Phone: Comment on above: Venipuncture immedia tely after or during the administration of Metamizole may lead to falsely low results. Testing should be performed immediately prior to Metamizole dosing. No Panel Informationon 06-14 [facility] [email or web address] [email or web address]?[email or web address]&Date=14-06-2023&Johnathan e=[email or web address]&Peggy tType=ECG&Site=1&Output Type=PDF&Ext=PDF [facility] [...] RACE VARIABLE FOR THE IDMS-TRACEABLE CREATININE METHODS.https://jasn.asnjournals.org/content/early/ N.9739386031 Provider Note - ED Care Castellanos jessica 06-14-2023 Provider Note - ED Care Transition [...] agrees with the plan. Patient and/or patients internet sales representative was counseled regarding labs, imaging, likely [...] Updated: 15-Jun-2023 02:50 by Camilo Larios) Normal [facility] Provider Note - ED v3on 09-2 Provider Note - ED v3 Provider Note: [...] day D (more content not included)... Normal [facility] SARS-CoV-2 (COVID-19) RNA NA A+probe Ql (Resp)on 06-14-2023 SARS-related CoV RNA SANNA+probe Ql (Resp) Not detected Not Detected [facility] Comment on above: . This test has received FDA Emergency Use Authorization (EUA) and has been verified by [facility] ([facility]). This test is only authorized for the duration of time that circumstances exist to justify the authorization of the emergency use of in vitro diagnostic tests for the detection of SARS-CoV-2 virus and/or diagnosis of COVID-19 infection under section 564(b)(1) of the Act, 21 U.S.C. 360bbb-3(b)(1), unless the authorization is terminated or revoked sooner. [facility] is certified under CLIA-88 as qualified to perform high complexity testing. Testing is performed in the [facility] located at [address] [place] [address]. SARS-CoV-2/Flu/RSV Multiplex Test: Fact sheet for providers: https://www.fda.gov/media/280993/download Fact sheet for patients: https://www.fda.gov/media/263673/download [facility] .Auto Diffon 06-03-2023 Basophil, Absolute 0.1 10 3/mcL Normal 0.0-0.2 [facility] ([place]) Comment on above: Performed By: #### U A, PREGU #### [facility] [place] [address] [place], [place] [address] Basophils/100 WBC (Bld) 1.0 % Normal 0.0-2.5 [facility] ([place]) Comment on above: Performed By: #### U A, PREGU #### [facility] [address] [place], [place] [address] Eosinophil, Absolute 0.3 10 3/mcL Normal 0.0-0.4 [facility] ([place]) Comment on above: Performed By: #### U A, PREGU #### [facility] [address] [place], [place] [address] Eosinophils/100 WBC (Bld) 2.5 % Normal 0.0-7.0 [facility] ([place]) Comment on above: Performed By: #### U A, PREGU #### [facility] [address] [place], [place] [address] Lymphocyte, Absolute 2.0 10 3/mcL Normal 0.8-3.9 [facility] ([place]) Comment on above: Performed By: #### U A, PREGU #### [facility] [address] [place], [place] [address] Lymphocytes/100 WBC (Bld) 20.1 % Normal 10.0-50.0 [facility] ([place]) Comment on above: Performed By: #### U A, PREGU #### [facility] [address] [place], [place] [address] Monocyte, Absolute 0.5 10 3/mcL Normal 0.2-1.0 [facility] ([place]) Comment on above: Performed By: #### U A, PREGU #### Sean [facility] [address] [place], [place] [address] Monocytes/100 WBC (Bld) 5.3 % Normal 1.7-13.0 [facility] ([place]) Comment on above: Performed By: #### U A, PREGU #### Sean [facility]iz[facility] [address] [place], [place] [address] Neutrophils/100 WBC (Bld) 71.1 % Normal 37.0-80.0 [facility] ([place]) Comment on above: Performed By: #### U A, PREGU #### Sean [facility] [address] [place], [place] [address] .GFRon 06-03-2023 GFR 80 ml/min/1.73sqm Normal [facility] ([place]) Comment on above: Result Comment: GFR [...] By: #### U A, PREGU #### [facility] [address] [place], [place] [address] GFR Non- 66 ml/min/1.73sqm Normal [facility] ([place]) Comment on above: Result Comment: GFR Population [...] Performed By: #### U A, PREGU #### [facility] [address] [place], [place] [address] .MDWon 06-03-2023 Monocyte Distribution Width 21.63 High 0.00-20.00 [facility] ([place]) Comment on above: Result Comment: For adults in ED, MDW>20.0 may be associated with a higher risk of sepsis during the first 12hrs of hospital admission Performed By: #### U A, PREGU #### [facility] [address] [place], [place] [address] .NEUABSon 06-03-2023 Neutrophil, Absolute 7.2 10 3/mcL High 2.9-6.2 [facility] ([place]) Comment on above: Performed By: #### U A, PREGU #### [facility] [place] [address] [place], [place] [address] CBCon 06-03-2023 Erythrocyte distribution width (RBC) [Ratio] 14.3 % Normal 11.5-14.5 [facility] ([place]) Comment on above: Performed By: #### U A, PREGU #### [facility] [place] [address] [place], [place] [address] Hematocrit (Bld) [Volume fraction] 39.1 % Normal 37.0-47.0 [facility] ([place]) Comment on above: Performed By: #### U A, PREGU #### [facility] [place] [address] [place], [place] [address] Hgb 13.2 G/dL Normal 12.0-16.0 [facility] ([place]) Comment on above: Performed By: #### U A, PREGU #### [facility] [place] [address] [place], [place] [address] MCH (RBC) [Entitic mass] 29.9 pg Normal 27.0-31.2 [facility] ([place]) Comment on above: Performed By: #### U A, PREGU #### [facility] [place] [address] [place] [address] MCHC 33.7 G/dL Normal 33.0-37.0 [facility] ([place]) Comment on above: Performed By: #### U A, PREGU #### [facility] [place] [address] [place], [place] [id number] MCV (RBC) [Entitic vol] 88.8 fL Normal 80.0-94.0 [facility] ([place]) Comment on above: Performed By: #### U A, PREGU #### [facility] [place] [address] [place], [place] [address] Platelet 441 10 3/mcL High 130-400 [facility] ([place]) Comment on above: Performed By: #### U A, PREGU #### [facility] [place] [address] [place], [place] [address] Platelet mean volume (Bld) [Entitic vol] 6.3 fL Low 7.4-10.4 [facility] ([place] Comment on above: Performed By: #### U A, PREGU #### [facility] [place] [address] [place], [place] [address] RBC 4.41 10 6/mcL Normal 4.20-5.40 [facility] ([place] Comment on above: Performed By: #### U A, PREGU #### Sean [place] [address] [place], [place] [address] WBC 10.1 10 3/mcL Normal 4.6-10.8 [facility] ([place] Comment on above: Performed By: #### U A, PREGU #### Sean [address]aiz[address] [place], [place] [address] CMPon 06-03-2023 Albumin Level 4.1 G/dL Normal 3.5-5.0 [facility] ([place] Comment on above: Performed By: #### U A, PREGU #### Sean [place] [address] [place], [place] [address] Albumin/Globulin [Mass ratio] 1.0 {ratio} Low 1.1-2.5 [facility] ([place] Comment on above: Performed By: #### U A, PREGU #### Sean Loaizan [address] [place], [place] [address] ALP [Catalytic activity/Vol] 96 U/L Normal 40-135 [facility] [place] Comment on above: Performed By: #### U A, PREGU #### Sean Loaiz[address] [place], [place] [address] ALT [Catalytic activity/Vol] 103 U/L High 14-59 [facility] ([place] Comment on above: Performed By: #### U A, PREGU #### Sean Loaiz[address] [place], [place] [address] AST [Catalytic activity/Vol] 61 U/L High 10-40 [facility] ([place] Comment on above: Performed By: #### U A, PREGU #### Sean Loaizan [address] [place], [place] [address] Bili Total 0.3 mg/dL Normal 0.2-1.0 [facility] ([place] Comment on above: Result Comment: Use of this assay is not recommended for patients undergoing treatment with eltrombopag due to the potential for falsely elevated results. Performed By: #### U A, PREGU #### Sean [place] [address] [place], [place] [address] BUN/Creatinine Ratio 23 ratio Normal 7-27 [facility] ([place] Comment on above: Performed By: #### U A, PREGU #### [facility] [place] [address] [place], [place] [address] Calcium [Mass/Vol] 9.0 mg/dL Normal 8.4-10.2 [facility] ([place] Comment on above: Performed By: #### U A, PREGU #### [facility] [place] [address] [place], [place] [address] Chloride [Moles/Vol] 99 mmol/L Normal 98-107 [facility] ([place] Comment on above: Performed By: #### U A, PREGU #### [facility] [place] [address] [place], [place] [address] CO2 [Moles/Vol] 24 mmol/L Normal 22-29 [facility] ([place]) Comment on above: Performed By: #### U A, PREGU #### [facility] [place] [address] [place], [place] [address] Creatinine [Mass/Vol] 0.91 mg/dL Normal 0.55-1.02 [facility] ([place] Comment on above: Performed By: #### U A, PREGU #### [facility] [place] [address] [place], [place] [address] Electrolyte Balance 13.0 mEq/L Normal 4.0-15.0 [facility] ([place] Comment on above: Performed By: #### U A, PREGU #### [facility] [place] [address] [place], [place] [address] Globulin 4.1 G/dL Normal [facility] [place] Comment on above: Performed By: #### U A, PREGU #### [facility] [place] [address] [place], [place] [address] Glucose [Mass/Vol] 180 mg/dL High 70-105 [facility] ([place] Comment on above: Performed By: #### U A, PREGU #### Seanoz Loaizan [address] [place], [place] [address] Potassium [Moles/Vol] 4.0 mmol/L Normal 3.5-5.1 [facility] ([place] Comment on above: Performed By: #### U A, PREGU #### [facility] [address] [place], [place] [address] Sodium [Moles/Vol] 136 mmol/L Normal 136-145 [facility] [place] Comment on above: Performed By: #### U A, PREGU #### Sean [place] [address] [place], [place] [address] Total Protein 8.2 G/dL Normal 6.4-8.2 [facility] [place] Comment on above: Performed By: #### U A, PREGU #### [facility] [place] [address] [place], [place] [address] Urea nitrogen [Mass/Vol] 21 mg/dL High 7-18 [facility] [place] Comment on above: Performed By: #### U A, PREGU #### [facility] [place] [address] [place], [place] [address] LABORATORYOrdered By: SYSTEM SYSTEM on 06-03-2023 Albumin [...] 06-03-2023 Lipase Level 58 U/L Normal 16-77 [facility] ([place]) Comment on above: Performed By: #### U A, PREGU #### [facility] [place] [address] [place], [place] [address] UAon 06-03-2023 Color (U) Yellow Normal [facility] ([place] Comment on above: Performed By: #### A DIFF, ANEU, CMP, MG, GFR, LD, CRP, CBC, ESR #### [address] [address] Glucose (U) [Mass/Vol] Negative Normal Negative [facility] ([place] Comment on above: Performed By: #### A DIFF, ANEU, CMP, MG, GFR, LD, CRP, CBC, ESR #### [address] [address] Ketones Ql (U) Negative Normal Negative [facility] ([place]) Comment on above: Performed By: #### A DIFF, ANEU, CMP, MG, GFR, LD, CRP, CBC, ESR #### [address] [address] UA Appear Clear Normal Clear [facility] ([place] Comment on above: Performed By: #### A DIFF, ANEU, CMP, MG, GFR, LD, CRP, CBC, ESR #### [address] [address] UA Blood Negative Normal Negative [facility] ([place] Comment on above: Performed By: #### A DIFF, ANEU, CMP, MG, GFR, LD, CRP, CBC, ESR #### [address] [address] UA Leuk Est Negative Normal Negative [facility] ([place]) Comment on above: Performed By: #### A DIFF, ANEU, CMP, MG, GFR, LD, CRP, CBC, ESR #### [address] [address] UA Nitrite Negative Normal Negative [facility] ([place] Comment on above: Performed By: #### A DIFF, ANEU, CMP, MG, GFR, LD, CRP, CBC, ESR #### [address] [address] UA pH 6.0 Normal 5.0 - 8.0 [facility] ([place] Comment on above: Performed By: #### A DIFF, ANEU, CMP, MG, GFR, LD, CRP, CBC, ESR #### [address] [address] UA Protein Negative Normal Negative [facility] ([place] Comment on above: Performed By: #### A DIFF, ANEU, CMP, MG, GFR, LD, CRP, CBC, ESR #### [address] [address] UA Spec Grav 1.025 Normal 1.015-1.025 [facility] ([place]) Comment on above: Performed By: #### A DIFF, ANEU, CMP, MG, GFR, LD, CRP, CBC, ESR #### [address] [address] UA Specimen Type Clean Catch Normal [facility] ([place] Comment on above: Performed By: #### A DIFF, ANEU, CMP, MG, GFR, LD, CRP, CBC, ESR #### [address] [address] UA Urobilinogen 0.2 E.U./dL Normal 0.2-1.0 [facility]) Comment on above: Performed By: #### A DIFF, ANEU, CMP, MG, GFR, LD, CRP, CBC, ESR #### [place] [address] [place], [place] [address] Urobilinogen (U) [Mass/Vol] Negative Normal Negative [facility] ([place] Comment on above: Performed By: #### A DIFF, ANEU, CMP, MG, GFR, LD, CRP, CBC, ESR #### [place] [id number] [place], [place] [address] Initial Visit (Pain Medicine )on 05-25-2023 Initial Visit (Pain Medicine) Orders Tobacco Use Screening; Status:Complete; Done: 25May2023 Chief Complaint Abdominal Pain Patient verified my name and date of . Patient presents to Pain Management for an evaluation and Tx. BMI ____. Non-Smoker Patient Referred by GI doctor at Patient states that her pain is located abd pain. Rates her pain /10. Describes her pain as deep in nature. [...] likely emerg (more content not included)... Normal Box[facility] Tobacco Screening.on 023 Fall risk assessment a) No falls within the last year [facility] Work Phone: Tobacco use status CPHS a) Yes [facility] Work Phone: .Auto Diffon 05-23-2023 Basophil, Absolute 0.0 10 3/mcL Normal 0.0-0.2 [facility] ([place]) Comment on above: Performed By: #### U A, PREGU #### [facility] [place] [address] [place], [place] [address] Basophils/100 WBC (Bld) 0.4 % Normal 0.0-2.5 [facility] ([place] Comment on above: Performed By: #### U A, PREGU #### [facility] [place] [address] [place], [place] [address] Eosinophil, Absolute 0.2 10 3/mcL Normal 0.0-0.4 [facility] ([place]) Comment on above: Performed By: #### U A, PREGU #### [facility] [place] [address] [place], [place] [address] Eosinophils/100 WBC (Bld) 2.6 % Normal 0.0-7.0 [facility] ([place]) Comment on above: Performed By: #### U A, PREGU #### Sean [address] [place], [place] [address] Lymphocyte, Absolute 2.1 10 3/mcL Normal 0.8-3.9 [facility] ([place]) Comment on above: Performed By: #### U A, PREGU #### Sean Loaiz[address] [place], [place] [address] Lymphocytes/100 WBC (Bld) 20.1 % Normal 10.0-50.0 [facility] ([place]) Comment on above: Performed By: #### U A, PREGU #### Sean Loaiz[address] [place], [place] [address] Monocyte, Absolute 0.5 10 3/mcL Normal 0.2-1.0 [facility] ([place]) Comment on above: Performed By: #### U A, PREGU #### Sean [place] [address] [place], [place] [address] Monocytes/100 WBC (Bld) 5.1 % Normal 1.7-13.0 [facility] ([place]) Comment on above: Performed By: #### U A, PREGU #### Sean Loaiz[address] [place], [place] [address] Neutrophils/100 WBC (Bld) 71.6 % Normal 37.0-80.0 [facility] ([place]) Comment on above: Performed By: #### U A, PREGU #### Sean [place] [address] [place], [place] [address] .GFRon 05-23-2023 GFR 73 ml/min/1.73sqm Normal [facility] ([place]) Comment on above: Result Comment: GFR [...] By: #### U A, PREGU #### [facility] [address] [place], [place] [address] GFR Non- 61 ml/min/1.73sqm Normal [facility] ([place]) Comment on above: Result Comment: GFR Population [...] By: #### U A, PREGU #### Sean [place] [address] [place], [place] [address] .MDWon 05-23-2023 Monocyte Distribution Width Not tested Normal 0.00-20.00 [facility] ([place]) Comment on above: Result Comment: MDW testing unable to be performed on [id number] instrumentation. Performed By: #### U A, PREGU #### Sean [place] [address] [place], [place] [address] .NEUABSon 05-23-2023 Neutrophil, Absolute 7.5 10 3/mcL High 2.9-6.2 [facility] ([place]) Comment on above: Performed By: #### U A, PREGU #### Sean [place] [address] [place], [place] [address] CBCon 05-23-2023 Erythrocyte distribution width (RBC) [Ratio] 12.8 % Normal 11.5-14.5 [facility] ([place]) Comment on above: Performed By: #### U A, PREGU #### Seanoz Loaizan [address] [place], [place] [address] Hematocrit (Bld) [Volume fraction] 39.4 % Normal 37.0-47.0 [facility] ([place] Comment on above: Performed By: #### U A, PREGU #### Sean [place] [address] [place], [place] [address] Hgb 13.4 G/dL Normal 12.0-16.0 [facility] ([place] Comment on above: Performed By: #### U A, PREGU #### [facility] [place] [address] [place], [place] [address] MCH (RBC) [Entitic mass] 30.5 pg Normal 27.0-31.2 [facility] ([place] Comment on above: Performed By: #### U A, PREGU #### [facility] [place] [address] [place], [place] [address] MCHC 34.1 G/dL Normal 33.0-37.0 [facility] ([place] Comment on above: Performed By: #### U A, PREGU #### [facility] [place] [address] [place], [place] [address] MCV (RBC) [Entitic vol] 89.5 fL Normal 80.0-94.0 [facility] ([place] Comment on above: Performed By: #### U A, PREGU #### [facility] [place] [address] [place], [place] [address] Platelet 425 10 3/mcL High 130-400 [facility] ([place]) Comment on above: Performed By: #### U A, PREGU #### [facility] [place] [address] [place], [place] [address] Platelet mean volume (Bld) [Entitic vol] 6.2 fL Low 7.4-10.4 [facility] ([place]) Comment on above: Performed By: #### U A, PREGU #### [facility] [place] [address] [place], [place] [address] RBC 4.40 10 6/mcL Normal 4.20-5.40 [facility] ([place] Comment on above: Performed By: #### U A, PREGU #### Sean [place] [address] [place], [place] [address] WBC 10.4 10 3/mcL Normal 4.6-10.8 [facility] ([place] Comment on above: Performed By: #### U A, PREGU #### Sean [address] [place], [place] [address] CMPon 05-23-2023 Albumin Level 3.8 G/dL Normal 3.5-5.0 [facility] ([place] Comment on above: Performed By: #### U A, PREGU #### Sean Loaizan [address] [place], [place] [address] Albumin/Globulin [Mass ratio] 1.1 {ratio} Normal 1.1-2.5 [facility] ([place] Comment on above: Performed By: #### U A, PREGU #### Sean Loaizan [address] [place], [place] [address] ALP [Catalytic activity/Vol] 91 U/L Normal 40-135 [facility] ([place] Comment on above: Performed By: #### U A, PREGU #### Sean Loaizan [address] [place], [place] [address] ALT [Catalytic activity/Vol] 53 U/L Normal 14-59 [facility] ([place] Comment on above: Performed By: #### U A, PREGU #### Sean Loaiz[address] [place], [place] [address] AST [Catalytic activity/Vol] 33 U/L Normal 10-40 [facility] ([place] Comment on above: Performed By: #### U A, PREGU #### Sean [address]aiz[address] [place], [place] [address] Bili Total 0.2 mg/dL Normal 0.2-1.0 [facility] ([place]) Comment on above: Result Comment: Use of this assay is not recommended for patients undergoing treatment with eltrombopag due to the potential for falsely elevated results. Performed By: #### U A, PREGU #### [facility] [place] [address] [place], [place] [address] BUN/Creatinine Ratio 14 ratio Normal 7-27 [facility] ([place] Comment on above: Performed By: #### U A, PREGU #### [facility] [place] [address] [place], [place] [address] Calcium [Mass/Vol] 9.1 mg/dL Normal 8.4-10.2 [facility] ([place] Comment on above: Performed By: #### U A, PREGU #### [facility] [place] [address] [place], [place] [address] Chloride [Moles/Vol] 100 mmol/L Normal 98-107 [facility] ([place] Comment on above: Performed By: #### U A, PREGU #### [facility] [place] [address] [place], [place] [address] CO2 [Moles/Vol] 27 mmol/L Normal 22-29 [facility] ([place]) Comment on above: Performed By: #### U A, PREGU #### [facility] [place] [address] [place], [place] [address] Creatinine [Mass/Vol] 0.98 mg/dL Normal 0.55-1.02 [facility] ([place] Comment on above: Performed By: #### U A, PREGU #### [facility] [place] [address] [place], [place] [address] Electrolyte Balance 9.0 mEq/L Normal 4.0-15.0 [facility] ([place] Comment on above: Performed By: #### U A, PREGU #### [facility] [place] [address] [place], [place] [address] Globulin 3.5 G/dL Normal [facility] ([place] Comment on above: Performed By: #### U A, PREGU #### [facility] [place] [address] [place], [place] [address] Glucose [Mass/Vol] 136 mg/dL High 70-105 [facility] ([place] Comment on above: Performed By: #### U A, PREGU #### [facility] [place] [address] [place], [place] [address] Potassium [Moles/Vol] 3.9 mmol/L Normal 3.5-5.1 [facility] ([place] Comment on above: Performed By: #### U A, PREGU #### [facility] [place] [address] [place], [place] [address] Sodium [Moles/Vol] 136 mmol/L Normal 136-145 [facility] ([place] Comment on above: Performed By: #### U A, PREGU #### [facility] [place] [address] [place], [place] [address] Total Protein 7.3 G/dL Normal 6.4-8.2 [facility] ([place] Comment on above: Performed By: #### U A, PREGU #### [facility] [place] [address] [place], [place] [address] Urea nitrogen [Mass/Vol] 14 mg/dL Normal 7-18 [facility] ([place] Comment on above: Performed By: #### U A, PREGU #### [facility] [place] [address] [place], [place] [address] LABORATORYOrdered By: Kiarra Jacobo on 05-23-2023 Appearance [...] MDW testing unable to be performed on [id number] instrumentation. LABORATORYOrdered By: SYSTEM SYSTEM on 05-23-2023 [...] LIPon 05-23-2023 Lipase Level 130 U/L High 16- [facility] ([place]) Comment on above: Performed By: #### U A, PREGU #### Sean [place] [address] [place], [place] [address] PREGUon 05-23-2023 HCG ( test) Ql (U) Negative Normal [facility] ([place] Comment on above: Performed By: #### U A, PREGU #### [facility] [address] [place], [place] [address] test (u) int Not detected Invalid Interpretation Code [facility] ([place] Comment on above: Performed By: #### U A, PREGU #### Sean [place] [address] [place], [place] [address] UAon 05-23-2023 Color (U) Yellow Normal [facility] ([place] Comment on above: Performed By: #### U A, PREGU #### [facility] [address], [place] [address] Glucose (U) [Mass/Vol] Negative Normal Negative [facility] ([place] Comment on above: Performed By: #### U A, PREGU #### Sean [place] [address] [place], [place] [address] Ketones Ql (U) Negative Normal Negative [facility] ([place] Comment on above: Performed By: #### U A, PREGU #### Sean [place] [address], [place] [address] UA Appear Clear Normal Clear [facility] ([place] Comment on above: Performed By: #### U A, PREGU #### Sean [place] [address] [place], [place] [address] UA Blood Negative Normal Negative [facility] ([place] Comment on above: Performed By: #### U A, PREGU #### Sean [place] [address], [place] [address] UA Leuk Est Negative Normal Negative [facility] ([place] Comment on above: Performed By: #### U A, PREGU #### Sean [place] [address] [place], [place] [address] UA Nitrite Negative Normal Negative [facility] ([place] Comment on above: Performed By: #### U A, PREGU #### Sean [place] [address] [place], [place] [address] UA pH 7.0 Normal 5.0 - 8.0 [facility] ([place] Comment on above: Performed By: #### U A, PREGU #### Sean [place] [address] [place], [place] [address] UA Protein Negative Normal Negative [facility] ([place] Comment on above: Performed By: #### U A, PREGU #### Sean [place] [address] [place], [place] [address] UA Spec Grav 1.015 Normal 1.015-1.025 [facility] ([place] Comment on above: Performed By: #### U A, PREGU #### Sean [place] [address] [place], [place] [address] UA Specimen Type Void Normal [facility] ([place] Comment on above: Performed By: #### U A, PREGU #### Sean [address] [address] [place], [place] [address] UA Urobilinogen 0.2 E.U./dL Normal 0.2-1.0 [facility] ([place] Comment on above: Performed By: #### U A, PREGU #### [facility] [place] [address] [place], [place] [address] Urobilinogen (U) [Mass/Vol] Negative Normal Negative [facility] ([place] Comment on above: Performed By: #### U A, PREGU #### [facility] [place] [address] [place], [place] [address] .Auto Diffon 05-19-2023 Basophil, Absolute 0.1 10 3/mcL Normal 0.0-0.2 [facility] ([place] Comment on above: Performed By: #### A DIFF, ANEU, CMP, MG, GFR, LD, CRP, CBC, ESR #### [address] [address] Basophils/100 WBC (Bld) 1.1 % Normal 0.0-2.5 [facility] ([place] Comment on above: Performed By: #### A DIFF, ANEU, CMP, MG, GFR, LD, CRP, CBC, ESR #### [address] [address] Eosinophil, Absolute 0.2 10 3/mcL Normal 0.0-0.4 [facility] ([place]) Comment on above: Performed By: #### A DIFF, ANEU, CMP, MG, GFR, LD, CRP, CBC, ESR #### [address] [address] Eosinophils/100 WBC (Bld) 1.5 % Normal 0.0-7.0 [facility] ([place] Comment on above: Performed By: #### A DIFF, ANEU, CMP, MG, GFR, LD, CRP, CBC, ESR #### [address] [address] Lymphocyte, Absolute 2.2 10 3/mcL Normal 0.8-3.9 [facility] ([place]) Comment on above: Performed By: #### A DIFF, ANEU, CMP, MG, GFR, LD, CRP, CBC, ESR #### [address] [address] Lymphocytes/100 WBC (Bld) 17.0 % Normal 10.0-50.0 [facility] ([place] Comment on above: Performed By: #### A DIFF, ANEU, CMP, MG, GFR, LD, CRP, CBC, ESR #### [address] [address] Monocyte, Absolute 0.8 10 3/mcL Normal 0.2-1.0 [facility] ([place] Comment on above: Performed By: #### A DIFF, ANEU, CMP, MG, GFR, LD, CRP, CBC, ESR #### [address] [address] Monocytes/100 WBC (Bld) 6.4 % Normal 1.7-13.0 [facility] ([place] Comment on above: Performed By: #### A DIFF, ANEU, CMP, MG, GFR, LD, CRP, CBC, ESR #### [address] [address] Neutrophils/100 WBC (Bld) 74.0 % Normal 37.0-80.0 [facility] ([place] Comment on above: Performed By: #### A DIFF, ANEU, CMP, MG, GFR, LD, CRP, CBC, ESR #### [address] [address] .GFRon 05-19-2023 GFR Non- 54 ml/min/1.73sqm Normal [facility] ([place] Comment on above: Result Comment: GFR Population [...] Performed By: #### U A, PREGU #### [facility] [place] [address] [place], [place] [address] GFR 65 ml/min/1.73sqm Normal [facility] ([place] Comment on above: Result Comment: GFR Population [...] Performed By: #### U Abigail PREGU #### [facility] [place] [address] [place], [place] [address] .MDWon 05-19-2023 Monocyte Distribution Width 17.04 Normal 0.00-20.00 [facility] ([place]) Comment on above: Result Comment: For ED adult patients suspected of sepsis, MDW<=20.0 does not rule out sepsis or risk of sepsis Performed By: #### A DIFF, ANEU, CMP, MG, GFR, LD, CRP, CBC, ESR #### Sean [address] [address] .Morphon 05-19-2023 Platelet Estimate Increased Normal [facility] ([place] Comment on above: Performed By: #### A DIFF, ANEU, CMP, MG, GFR, LD, CRP, CBC, ESR #### [address] [address] .NEUABSon 05-19-2023 Neutrophil, Absolute 9.4 10 3/mcL High 2.9-6.2 [facility] ([place]) Comment on above: Performed By: #### A DIFF, ANEU, CMP, MG, GFR, LD, CRP, CBC, ESR #### [address] [address] .Urinalysis Microscopic (AO) on 05-19-2023 UA Bacteria Trace Abnormal [facility] ([place]) Comment on above: Performed By: #### U A, PREGU #### Sean [place] [address] [place], [place] [address] UA RBC 0-5 Abnormal None Seen [facility] [place] Comment on above: Performed By: #### U A, PREGU #### Sean [place] [address] [place], [place] [address] UA Squam Epithelial 0-5 Abnormal None Seen [facility] ([place] Comment on above: Performed By: #### U A, PREGU #### [facility] [address] [place], [place] [address] UA WBC LOADED Abnormal None Seen [facility] ([place] Comment on above: Performed By: #### U A, PREGU #### Sean [place] [address] [place], [place] [address] CBCon 05-19-2023 Erythrocyte distribution width (RBC) [Ratio] 13.7 % Normal 11.5-14.5 [facility] ([place] Comment on above: Performed By: #### A DIFF, ANEU, CMP, MG, GFR, LD, CRP, CBC, ESR #### [address] [address] Hematocrit (Bld) [Volume fraction] 40.0 % Normal 37.0-47.0 [facility] ([place] Comment on above: Performed By: #### A DIFF, ANEU, CMP, MG, GFR, LD, CRP, CBC, ESR #### [address] [address] Hgb 13.4 G/dL Normal 12.0-16.0 [facility] ([place] Comment on above: Performed By: #### A DIFF, ANEU, CMP, MG, GFR, LD, CRP, CBC, ESR #### [address] [address] MCH (RBC) [Entitic mass] 29.8 pg Normal 27.0-31.2 [facility] ([place] Comment on above: Performed By: #### A DIFF, ANEU, CMP, MG, GFR, LD, CRP, CBC, ESR #### [address] [address] MCHC 33.5 G/dL Normal 33.0-37.0 [facility] ([place] Comment on above: Performed By: #### A DIFF, ANEU, CMP, MG, GFR, LD, CRP, CBC, ESR #### [address] [address] MCV (RBC) [Entitic vol] 89.0 fL Normal 80.0-94.0 [facility] ([place] Comment on above: Performed By: #### A DIFF, ANEU, CMP, MG, GFR, LD, CRP, CBC, ESR #### [address] [address] Platelet 498 10 3/mcL High 130-400 [facility] ([place]) Comment on above: Performed By: #### A DIFF, ANEU, CMP, MG, GFR, LD, CRP, CBC, ESR #### [address] [address] Platelet mean volume (Bld) [Entitic vol] 6.1 fL Low 7.4-10.4 [facility] ([place] Comment on above: Performed By: #### A DIFF, ANEU, CMP, MG, GFR, LD, CRP, CBC, ESR #### [address] [address] RBC 4.49 10 6/mcL Normal 4.20-5.40 [facility] ([place] Comment on above: Performed By: #### A DIFF, ANEU, CMP, MG, GFR, LD, CRP, CBC, ESR #### [address] [address] WBC 12.7 10 3/mcL High 4.6-10.8 [facility] ([place] Comment on above: Performed By: #### A DIFF, ANEU, CMP, MG, GFR, LD, CRP, CBC, ESR #### [id number] [place], [place] [address] CMPon 05-19-2023 Albumin Level 3.7 G/dL Normal 3.5-5.0 [facility] ([place]) Comment on above: Performed By: #### U A, PREGU #### [facility] [place] [address] [place], [place] [address] Albumin/Globulin [Mass ratio] 1.0 {ratio} Low 1.1-2.5 [facility] ([place]) Comment on above: Performed By: #### U A, PREGU #### [facility] [place] [address] [place], [place] [address] ALP [Catalytic activity/Vol] 100 U/L Normal 40-135 [facility] ([place]) Comment on above: Performed By: #### U A, PREGU #### [facility] [place] [address] [place], [place] [address] ALT [Catalytic activity/Vol] 58 U/L Normal 14-59 [facility] ([place] Comment on above: Performed By: #### U A, PREGU #### [facility] [place] [address], [place] [address] AST [Catalytic activity/Vol] 27 U/L Normal 10-40 [facility] ([place] Comment on above: Performed By: #### U A, PREGU #### [facility] [place] [address], [place] [address] Bili Total 0.2 mg/dL Normal 0.2-1.0 [facility] ([place]) Comment on above: Result Comment: Use of this assay is not recommended for patients undergoing treatment with eltrombopag due to the potential for falsely elevated results. Performed By: #### U A, PREGU #### [facility] [place] [address] [place], [place] [address] BUN/Creatinine Ratio 16 ratio Normal 7-27 [facility] ([place]) Comment on above: Performed By: #### U A, PREGU #### [facility] [place] [address], [place] [address] Calcium [Mass/Vol] 9.1 mg/dL Normal 8.4-10.2 [facility] ([place]) Comment on above: Performed By: #### U A, PREGU #### [address] [place], [place] [address] Chloride [Moles/Vol] 100 mmol/L Normal 98-107 [facility] ([place]) Comment on above: Performed By: #### U A, PREGU #### [address] [place], [place] [address] CO2 [Moles/Vol] 27 mmol/L Normal 22-29 [facility] ([place]) Comment on above: Performed By: #### U A, PREGU #### [address] [place], [place] [address] Creatinine [Mass/Vol] 1.09 mg/dL High 0.55-1.02 [facility] ([place]) Comment on above: Performed By: #### U A, PREGU #### [address] [place], [place] [address] Electrolyte Balance 12.0 mEq/L Normal 4.0-15.0 [facility] ([place]) Comment on above: Performed By: #### U A, PREGU #### [address], [place] [address] Globulin 3.8 G/dL Normal [facility] ([place] Comment on above: Performed By: #### U A, PREGU #### [address], [place] [address] Glucose [Mass/Vol] 117 mg/dL High 70-105 [facility] ([place]) Comment on above: Performed By: #### U A, PREGU #### [address], [place] [address] Potassium [Moles/Vol] 4.3 mmol/L Normal 3.5-5.1 [facility] ([place]) Comment on above: Performed By: #### U A, PREGU #### [address] [place], [place] [address] Sodium [Moles/Vol] 139 mmol/L Normal 136-145 [facility] ([place]) Comment on above: Performed By: #### U A, PREGU #### [address], [place] [address] Total Protein 7.5 G/dL Normal 6.4-8.2 [facility] ([place] Comment on above: Performed By: #### U A, PREGU #### [address], [place] [address] Urea nitrogen [Mass/Vol] 17 mg/dL Normal 7-18 [facility] ([place] Comment on above: Performed By: #### U A, PREGU #### [address] [place], [place] [address] LABORATORYOrdered By: SYSTEM SYSTEM on 05-19-2023 Albumin [...] 05-19-2023 Lipase Level 104 U/L High 16-77 [facility] ([place]) Comment on above: Performed By: #### A DIFF, ANEU, CMP, MG, GFR, LD, CRP, CBC, ESR #### [address] [address] UAon 05-19-2023 Color (U) Yellow Normal [facility] ([place] Comment on above: Performed By: #### U A, PREGU #### [facility] [address], [place] [address] Glucose (U) [Mass/Vol] Negative Normal Negative [facility] ([place] Comment on above: Performed By: #### U A, PREGU #### [facility] [address], [place] [address] UA Appear Clear Normal Clear [facility] ([place] Comment on above: Performed By: #### U A, PREGU #### [address], [place] [address] UA Blood Trace Abnormal Negative [facility] ([place] Comment on above: Performed By: #### U A, PREGU #### [address], [place] [address] UA Leuk Est Moderate Abnormal Negative [facility] ([place]) Comment on above: Performed By: #### U A, PREGU #### [address], [place] [address] UA Nitrite Negative Normal Negative [facility] ([place] Comment on above: Performed By: #### U A, PREGU #### [address], [place] [address] UA pH 6.0 Normal 5.0 - 8.0 [facility] ([place] Comment on above: Performed By: #### U A, PREGU #### [address], [place] [address] UA Spec Grav 1.015 Normal 1.015-1.025 [facility] ([place]) Comment on above: Performed By: #### U A, PREGU #### [address], [place] [address] UA Specimen Type Clean Catch Normal [facility] ([place] Comment on above: Performed By: #### U A, PREGU #### [facility] [place] [address] [place], [place] [address] UA Urobilinogen 0.2 E.U./dL Normal 0.2-1.0 [facility] ([place]) Comment on above: Performed By: #### U A, PREGU #### [address] [place], [place] [address] Urobilinogen (U) [Mass/Vol] Negative Normal Negative [facility] ([place] Comment on above: Performed By: #### U A, PREGU #### [address], [place] [address] UAOrdered By: Lynn wright on 05-19-2023 Ketones Ql (U) Negative Normal Negative AO Auto Ur ine SS Comment on above: Performed By: #### U A, PREGU #### [address], [place] [address] UA Protein Negative Normal Negative AO Auto Urine SS Comment on above: Performed By: #### U A, PREGU #### [address], [place] [address] Laboratory - Chemistry and C hemistry - challengeon 05-15-2023 Anion gap [Moles/Vol] 15 mmol/L 10 - 20 [facility] Work Phone: Calcium [Mass/Vol] 9.5 mg/dL 8.6 - 10.6 [facility] Work Phone: Chloride [Moles/Vol] 102 mmol/L 98 - 107 [facility] Work Phone: CO2 [Moles/Vol] 24 mmol/L 21 - 32 [facility] Work Phone: Creatinine [Mass/Vol] 0.61 mg/dL See Below [facility] Work Phone: Comment on above: Reference Range: 0.5 0 - 1.05 Glucose [Mass/Vol] 163 mg/dL above high threshold 74 - 99 [facility] Work Phone: Potassium [Moles/Vol] 4.4 mmol/L 3.5 - 5.3 [facility] Work Phone: Sodium [Moles/Vol] 137 mmol/L 136 - 145 [facility] Work Phone: Urea nitrogen [Mass/Vol] 10 mg/dL 6 - 23 [facility] Work Phone: Laboratory - Hematology and Cell countson 05-15-2023 Erythrocyte distribution width (RBC) [Ratio] 12.8 % See Below [facility] Work Phone: Comment on above: Reference Range: 11. 5 - 14.5 Hematocrit (Bld) [Volume fraction] 35.2 % below low threshold See Below [facility] Work Phone: Comment on above: Reference Range: 36. 0 - 46.0 Hemoglobin (Bld) [Mass/Vol] 11.2 g/dL below low threshold See Below [facility] Work Phone: Comment on above: Reference Range: 12. 0 - 16.0 MCHC (RBC) [Mass/Vol] 31.8 g/dL below low threshold See Below -[facility] Work Phone: Comment on above: Reference Range: 32. 0 - 36.0 MCV (RBC) [Entitic vol] 98 fL 80 - 100 -[facility] Work Phone: Platelets (Bld) [#/Vol] 288 10*3/uL 150 - 450 -[facility] Work Phone: RBC (Bld) [#/Vol] 3.61 {x10E12/L} below low threshold See Below -[facility] Work Phone: Comment on above: Reference Range: 4.0 0 - 5.20 WBC (Bld) [#/Vol] 8.1 10*3/uL 4.4 - 11.3 [facility] Work Phone: No Panel Informationon 05-15 >90 >90 -Pain [facility] Work Phone: Comment on above: CALCULATIONS OF ESTUARDO MATED GFR ARE PERFORMED USING THE 2020 CKD-EPI STUDY REFIT EQUATION WITHOUT THE RACE VARIABLE FOR THE IDMS-TRACEABLE CREATININE METHODS.https://jasn.asnjournals.org/content/early/ N.3771103042 0.0 {/100_WBC} 0.0-0.0 -[facility] Work Phone: Laboratory - Chemistry and C hemistry - challengeon 05-14-2023 Sodium (U) [Moles/Vol] mmol/L See Below -[facility] Work Phone: Comment on above: Reference Range: Not Established Sodium/Creatinine (U) [Ratio] SEE COMMENT See Below -[facility] Work Phone: Comment on above: Reference Range: Not EstablishedOne or more analytes used in this calculation is outside of the analytical measurement range.Calculation cannot be performed. Anion gap [Moles/Vol] 19 mmol/L 10 - 20 [facility] Work Phone: Calcium [Mass/Vol] 10.3 mg/dL 8.6 - 10.6 [facility] Work Phone: Chloride [Moles/Vol] 98 mmol/L 98 - 107 [facility] Work Phone: CO2 [Moles/Vol] 24 mmol/L 21 - 32 [facility] Work Phone: Creatinine [Mass/Vol] 0.76 mg/dL See Below - [facility] Work Phone: Comment on above: Reference Range: 0.5 0 - 1.05 Glucose [Mass/Vol] 168 mg/dL above high threshold 74 - 99 [facility] Work Phone: Potassium [Moles/Vol] 4.3 mmol/L 3.5 - 5.3 [facility] Work Phone: Sodium [Moles/Vol] 137 mmol/L 136 - 145 [facility] Work Phone: Urea nitrogen [Mass/Vol] 14 mg/dL 6 - 23 [facility] Work Phone: Laboratory - Coagulationon 0 - aPTT Coag (PPP) [Time] 27 s 27 - 38 [facility] Work Phone: Comment on above: Note new reference r soheila as of 03/08/2023 at 10:00am. INR Coag (PPP) [Relative time] 1.1 {INR} 0.9 - 1.1 [facility] Work Phone: PT Coag (PPP) [Time] 12.7 s 9.8 - 12.8 [facility] Work Phone: Comment on above: Note new reference mony parnell as of 03/08/2023 at 10:00am. Laboratory - Hematology and Cell countson 05-14-2023 Erythrocyte distribution width (RBC) [Ratio] 12.8 % See Below [facility] Work Phone: Comment on above: Reference Range: 11. 5 - 14.5 Hematocrit (Bld) [Volume fraction] 35.9 % below low threshold See Below -[facility] Work Phone: Comment on above: Reference Range: 36. 0 - 46.0 Hemoglobin (Bld) [Mass/Vol] 11.9 g/dL below low threshold See Below [facility] Work Phone: Comment on above: Reference Range: 12. 0 - 16.0 MCHC (RBC) [Mass/Vol] 33.1 g/dL See Below - [facility] Work Phone: Comment on above: Reference Range: 32. 0 - 36.0 MCV (RBC) [Entitic vol] 89 fL 80 - 100 [facility] Work Phone: Platelets (Bld) [#/Vol] 419 10*3/uL 150 - 450 [facility] Work Phone: RBC (Bld) [#/Vol] 4.03 {x10E12/L} See Below MP [facility] Work Phone: Comment on above: Reference Range: 4.0 0 - 5.20 WBC (Bld) [#/Vol] 8.9 10*3/uL 4.4 - 11.3 [facility] Work Phone: Erythrocyte distribution width (RBC) [Ratio] 12.6 % See Below [facility] Work Phone: Comment on above: Reference Range: 11. 5 - 14.5 Hematocrit (Bld) [Volume fraction] 36.6 % See Below [facility] Work Phone: Comment on above: Reference Range: 36. 0 - 46.0 Hemoglobin (Bld) [Mass/Vol] 11.6 g/dL below low threshold See Below [facility] Work Phone: Comment on above: Reference Range: 12. 0 - 16.0 MCHC (RBC) [Mass/Vol] 31.7 g/dL below low threshold See Below [facility] Work Phone: Comment on above: Reference Range: 32. 0 - 36.0 MCV (RBC) [Entitic vol] 95 fL 80 - 100 [facility] Work Phone: Platelets (Bld) [#/Vol] 409 10*3/uL 150 - 450 [facility] Work Phone: RBC (Bld) [#/Vol] 3.84 {x10E12/L} below low threshold See Below [facility] Work Phone: Comment on above: Reference Range: 4.0 0 - 5.20 WBC (Bld) [#/Vol] 8.4 10*3/uL 4.4 - 11.3 [facility] Work Phone: No Panel Informationon 05-14 SEE COMMENT 38 - 318 -[facility] Work Phone: Comment on above: One or more analytes used in this calculation is outside of the analytical measurement range.Calculation cannot be performed. <15 See Below [facility] Work Phone: Comment on above: Reference Range: Not Established >90 >90 [facility] Work Phone: Comment on above: CALCULATIONS OF ESTUARDO MATED GFR ARE PERFORMED USING THE 2020 CKD-EPI STUDY REFIT EQUATION WITHOUT THE RACE VARIABLE FOR THE IDMS-TRACEABLE CREATININE METHODS.https://jasn.asnjournals.org/content/early/ N.9090877220 0.0 {/100_WBC} 0.0-0.0 [facility] Work Phone: 0.0 {/100_WBC} 0.0-0.0 [facility] Work Phone: Radiologyon 05-14-2023 US Kidney - bilateral Normal [facility] Work Phone: Renal Function Panelon 05-14 Albumin BCP dye [Mass/Vol] 4.0 g/dL 3.4 - 5.0 [facility] Work Phone: Anion gap [Moles/Vol] 13 mmol/L 10 - 20 [facility] Work Phone: Calcium [Mass/Vol] 10.0 mg/dL 8.6 - 10.6 [facility] Work Phone: Chloride [Moles/Vol] 98 mmol/L 98 - 107 [facility] Work Phone: CO2 [Moles/Vol] 29 mmol/L 21 - 32 [facility] Work Phone: Creatinine [Mass/Vol] 0.69 mg/dL See Below [facility] Work Phone: Comment on above: Reference Range: 0.5 0 - 1.05 Glucose [Mass/Vol] 139 mg/dL above high threshold 74 - 99 [facility] Work Phone: Phosphate [Mass/Vol] 4.5 mg/dL 2.5 - 4.9 MP-P ain [facility] Work Phone: Comment on above: The performance timi acteristics of phosphorus testing in heparinized plasma have been validated by the individual laboratory site where testing is performed. Testing on heparinized plasma is not approved by the FDA; however, such approval is not necessary. Potassium [Moles/Vol] 4.0 mmol/L 3.5 - 5.3 [facility] Work Phone: Sodium [Moles/Vol] 136 mmol/L 136 - 145 [facility] Work Phone: Urea nitrogen [Mass/Vol] 15 mg/dL 6 - 23 [facility] Work Phone: Renal Function Panel >90 >90 MP-P n [facility] Work Phone: Comment on above: CALCULATIONS OF ESTUARDO MATED GFR ARE PERFORMED USING THE 2020 CKD-EPI STUDY REFIT EQUATION WITHOUT THE RACE VARIABLE FOR THE IDMS-TRACEABLE CREATININE METHODS.https://jasn.asnjournals.org/content/early/ N.5653039665 Total Protein, Urine Spoton 05-14-2023 Creatinine (U) [Mass/Vol] 90.4 mg/dL See Below -[facility] Work Phone: Comment on above: Reference Range: 20. 0 - 320.0 Protein (U) [Mass/Vol] 12 mg/dL 5 - 24 -[facility] Work Phone: Protein/Creatinine (U) [Ratio] 0.13 {mg/mg_Creat} See Below -[facility] Work Phone: Comment on above: Reference Range: 0.0 0 - 0.17 Urinalysison 05-14-2023 Color (U) YELLOW See Below -[facility] Work Phone: Comment on above: Reference Range: STR AW,YELLOW Glucose Ql (U) Negative NEGATIVE [facility] Work Phone: Ketones Ql (U) Negative NEGATIVE [facility] Work Phone: Leukocyte esterase Test strip Ql (U) SMALL (1+) Abnormal NEGATIVE [facility] Work Phone: pH (U) 6.0 [pH] 5.0 - 8.0 [facility] Work Phone: Protein (U) [Mass/Vol] Negative NEGATIVE [facility] Work Phone: RBC (U) [#/Vol] Negative NEGATIVE [facility] Work Phone: Specific gravity (U) [Rel density] 1.015 1 See Below [facility] Work Phone: Comment on above: Reference Range: 1.0 05 - 1.035 Urinalysis Negative NEGATIVE [facility] Work Phone: Urinalysis <2.0 0.0 - 1.9 [facility] Work Phone: Urinalysis HAZY CLEAR [facility] Work Phone: Urinalysis, Microscopicon Urinalysis, Microscopic 3+ Abnormal [facility] Work Phone: Urinalysis, Microscopic 1+ Abnormal [facility] Work Phone: Urinalysis, Microscopic 11 {/HPF} [facility] Work Phone: Urinalysis, Microscopic 4 {/HPF} 0-5 [facility] Work Phone: Urinalysis, Microscopic RARE [facility] Work Phone: Urinalysis, Microscopic 41 {/HPF} Abnormal 0-5 [facility] Work Phone: Complete Blood Count + Diffe ade 08--2022 Basophils/100 WBC (Bld) 0.7 % 0.0 - 2.0 [facility] Work Phone: Erythrocyte distribution width (RBC) [Ratio] 12.6 % See Below [facility] Work Phone: Comment on above: Reference Range: 11. 5 - 14.5 Hematocrit (Bld) [Volume fraction] 36.9 % See Below [facility] Work Phone: Comment on above: Reference Range: 36. 0 - 46.0 Hemoglobin (Bld) [Mass/Vol] 12.4 g/dL See Below [facility] Work Phone: Comment on above: Reference Range: 12. 0 - 16.0 Lymphocytes/100 WBC (Bld) 23.8 % See Below [facility] Work Phone: Comment on above: Reference Range: 13. 0 - 44.0 MCHC (RBC) [Mass/Vol] 33.6 g/dL See Below [facility] Work Phone: Comment on above: Reference Range: 32. 0 - 36.0 MCV (RBC) [Entitic vol] 89 fL 80 - 100 [facility] Work Phone: Monocytes/100 WBC (Bld) 7.1 % 2.0 - 10.0 [facility] Work Phone: Neutrophils/100 WBC (Bld) 63.7 % See Below [facility] Work Phone: Comment on above: Reference Range: 40. 0 - 80.0 Platelets (Bld) [#/Vol] 354 10*3/uL 150 - 450 [facility] Work Phone: RBC (Bld) [#/Vol] 4.15 {x10E12/L} See Below MP -[facility] Work Phone: Comment on above: Reference Range: 4.0 0 - 5.20 WBC (Bld) [#/Vol] 8.1 10*3/uL 4.4 - 11.3 [facility] Work Phone: Complete Blood Count + Differential 0.06 {x10E9/L} See Below [facility] Work Phone: Comment on above: Reference Range: 0.0 0 - 0.10 Complete Blood Count + Differential 0.33 {x10E9/L} See Below [facility] Work Phone: Comment on above: Reference Range: 0.0 0 - 0.70 Complete Blood Count + Differential 0.57 {x10E9/L} See Below [facility] Work Phone: Comment on above: Reference Range: 0.1 0 - 1.00 Complete Blood Count + Differential 1.92 {x10E9/L} See Below [facility] Work Phone: Comment on above: Reference Range: 1.2 0 - 4.80 Complete Blood Count + Differential 5.15 {x10E9/L} See Below [facility] Work Phone: Comment on above: Reference Range: 1.2 0 - 7.70 Complete Blood Count + Differential 4.1 % 0.0 - 6.0 [facility] Work Phone: Complete Blood Count + Differential 0.6 % 0.0 - 0.9 [facility] Work Phone: Comment on above: Immature Granulocyte Count (IG) includes promyelocytes, myelocytes and metamyelocytes but does not include bands. Percent differential counts (%) should be interpreted in the context of the absolute cell counts (cells/L). Complete Blood Count + Differential 0.0 {/100_WBC} 0.0-0.0 MP-Pain [facility] Work Phone: Cult, Urineon 05-13-2023 Bacteria identified Cx Nom (U) Abnormal -Pain [facility] Work Phone: Initial Visit (Pain Medicine )on 05-13-2023 Initial Visit (Pain Medicine) No report was sent Normal [facility] - Chemistry and C hemistry - challengeon 05-13-2023 Albumin BCP dye [Mass/Vol] 3.9 g/dL 3.4 - 5.0 -Pain [facility] Work Phone: ALP [Catalytic activity/Vol] 62 U/L 33 - 110 MP-[facility] Work Phone: ALT With P-5'-P [Catalytic activity/Vol] 43 U/L 7 - 45 -Pain [facility] Work Phone: Comment on above: Patients treated wit h Sulfasalazine may generate falsely decreased results for ALT. Anion gap [Moles/Vol] 14 mmol/L 10 - 20 MP- Pain [facility] Work Phone: AST With P-5'-P [Catalytic activity/Vol] 27 U/L 9 - 39 MP-[facility] Work Phone: Bilirubin [Mass/Vol] 0.3 mg/dL 0.0 - 1.2 MP-P ain [facility] Work Phone: Calcium [Mass/Vol] 9.7 mg/dL 8.6 - 10.6 MP-Colin n [facility] Work Phone: Chloride [Moles/Vol] 98 mmol/L 98 - 107 [facility] Work Phone: CO2 [Moles/Vol] 30 mmol/L 21 - 32 [facility] Work Phone: Creatinine [Mass/Vol] 0.75 mg/dL See Below - [facility] Work Phone: Comment on above: Reference Range: 0.5 0 - 1.05 Glucose [Mass/Vol] 103 mg/dL above high threshold 74 - 99 [facility] Work Phone: Potassium [Moles/Vol] 3.5 mmol/L 3.5 - 5.3 [facility] Work Phone: Protein [Mass/Vol] 6.4 g/dL 6.4 - 8.2 [facility] Work Phone: Sodium [Moles/Vol] 138 mmol/L 136 - 145 [facility] Work Phone: Urea nitrogen [Mass/Vol] 17 mg/dL 6 - 23 [facility] Work Phone: Albumin BCP dye [Mass/Vol] 3.8 g/dL 3.4 - 5.0 [facility] Work Phone: ALP [Catalytic activity/Vol] 59 U/L 33 - 110 [facility] Work Phone: ALT With P-5'-P [Catalytic activity/Vol] 42 U/L 7 - 45 [facility] Work Phone: Comment on above: Patients treated wit h Sulfasalazine may generate falsely decreased results for ALT. Anion gap [Moles/Vol] 17 mmol/L 10 - 20 [facility] Work Phone: AST With P-5'-P [Catalytic activity/Vol] 28 U/L 9 - 39 [facility] Work Phone: Bilirubin [Mass/Vol] 0.3 mg/dL 0.0 - 1.2 [facility] Work Phone: Calcium [Mass/Vol] 9.7 mg/dL 8.6 - 10.6 [facility] Work Phone: Chloride [Moles/Vol] 98 mmol/L 98 - 107 [facility] Work Phone: CO2 [Moles/Vol] 26 mmol/L 21 - 32 [facility] Work Phone: Creatinine [Mass/Vol] 0.71 mg/dL See Below - [facility] Work Phone: Comment on above: Reference Range: 0.5 0 - 1.05 Glucose [Mass/Vol] 154 mg/dL above high threshold 74 - 99 [facility] Work Phone: LDH [Catalytic activity/Vol] 201 U/L 84 - 246 [facility] Work Phone: Potassium [Moles/Vol] 3.5 mmol/L 3.5 - 5.3 [facility] Work Phone: Protein [Mass/Vol] 6.3 g/dL below low threshold 6.4 - 8.2 [facility] Work Phone: Sodium [Moles/Vol] 137 mmol/L 136 - 145 MP-Colin n [facility] Work Phone: Urea nitrogen [Mass/Vol] 16 mg/dL 6 - 23 [facility] Work Phone: Laboratory - Hematology and Cell countson 05-13-2023 Erythrocyte distribution width (RBC) [Ratio] 12.5 % See Below MP-[facility] Work Phone: Comment on above: Reference Range: 11. 5 - 14.5 Hematocrit (Bld) [Volume fraction] 38.6 % See Below -[facility] Work Phone: Comment on above: Reference Range: 36. 0 - 46.0 Hemoglobin (Bld) [Mass/Vol] 12.6 g/dL See Below -[facility] Work Phone: Comment on above: Reference Range: 12. 0 - 16.0 MCHC (RBC) [Mass/Vol] 32.6 g/dL See Below - [facility] Work Phone: Comment on above: Reference Range: 32. 0 - 36.0 MCV (RBC) [Entitic vol] 94 fL 80 - 100 MP-Pain [facility] Work Phone: Platelets (Bld) [#/Vol] 440 10*3/uL 150 - 450 -Pain [facility] Work Phone: RBC (Bld) [#/Vol] 4.10 {x10E12/L} See Below -Pain [facility] Work Phone: Comment on above: Reference Range: 4.0 0 - 5.20 WBC (Bld) [#/Vol] 10.7 10*3/uL 4.4 - 11.3 MP-Pa in [facility] Work Phone: Magnesium, Serumon 3 Magnesium [Mass/Vol] 2.40 mg/dL See Below MP-P ain [facility] Work Phone: Comment on above: Reference Range: 1.6 0 - 2.40 No Panel Informationon 05-13 >90 >90 MP-[facility] Work Phone: Comment on above: CALCULATIONS OF ESTUARDO MATED GFR ARE PERFORMED USING THE 2020 CKD-EPI STUDY REFIT EQUATION WITHOUT THE RACE VARIABLE FOR THE IDMS-TRACEABLE CREATININE METHODS.https://jasn.asnjournals.org/content/early/ N.2061624248 0.0 {/100_WBC} 0.0-0.0 [facility] Work Phone: >90 >90 [facility] Work Phone: Comment on above: CALCULATIONS OF ESTUARDO MATED GFR ARE PERFORMED USING THE 2020 CKD-EPI STUDY REFIT EQUATION WITHOUT THE RACE VARIABLE FOR THE IDMS-TRACEABLE CREATININE METHODS.https://jasn.asnjournals.org/content// N.4810398209 https://UHMUSEXPRDWE B01 :8080/musescripts/musew eb.dll?RetrieveTestByDa teTime?IileqmtIU=[id number] 962&Date=13-05-2023&Johnathan e=[id number]&Peggy tType=ECG&Site=1&Output Type=PDF&Ext=PDF [facility] Work Phone: Normal sinus rhythm MP-Pa in [facility] Work Phone: Abnormal [facility] Work Phone: [phone] [facility] Work Phone: [phone] [facility] Work Phone: [phone] [facility] Work Phone: [phone] 1 [facility] Work Phone: [phone] [facility] Work Phone: 13 1 [facility] Work Phone: 6 1 [facility] [place] Work Phone: -[phone] 1 [facility] [place] Work Phone: 37 [phone] [facility] [place] Work Phone: [phone] [facility] [place] Work Phone: [phone] [facility] [place] Work Phone: 90 1 [facility] [place] Work Phone: [phone] [facility] [place] Work Phone: [phone] [facility] [place] Work Phone: Phosphorus, Serumon 05-13-20 23 Phosphate [Mass/Vol] 4.0 mg/dL 2.5 - 4.9 MP-P ain [facility] Work Phone: Comment on above: The performance timi acteristics of phosphorus testing in heparinized plasma have been validated by the individual laboratory site where testing is performed. Testing on heparinized plasma is not approved by the FDA; however, such approval is not necessary. TROPONIN I, HIGH SENSITIVITY on 05-13-2023 Tropinin I.cardiac panel High sensitivity method <3 0 - 34 [facility] Work Phone: Comment on above: .Less than [...] performed using a different testing methodology at [facility] than at other [facility] [place] [facility]. Direct result comparisons should only be made within the same method. Tropinin I.cardiac panel High sensitivity method <3 0 - 34 [facility] Work Phone: Comment on above: .Less than [...] performed using a different testing methodology at [facility] than at other [facility] [place] [facility]. Direct result comparisons should only be made within the same method. URINALYSIS WITH CULTURE IF I NDICATEDon 05-13-2023 Color (U) RED See Below -[facility] Work Phone: Comment on above: Reference Range: STR AW,YELLOW Glucose Ql (U) Negative NEGATIVE -Pain [facility] Work Phone: Ketones Ql (U) Negative NEGATIVE -Pain [facility] Work Phone: Leukocyte esterase Test strip Ql (U) TRACE Abnormal NEGATIVE -Pain [facility] Work Phone: pH (U) 7.0 [pH] 5.0 - 8.0 [facility] Work Phone: Protein (U) [Mass/Vol] >=300 + Abnormal NEGATIVE -[facility] Work Phone: RBC (U) [#/Vol] LARGE (3+) Abnormal NEGATIVE [facility] Work Phone: Specific gravity (U) [Rel density] 1.020 1 See Below [facility] Work Phone: Comment on above: Reference Range: 1.0 05 - 1.035 URINALYSIS WITH CULTURE IF INDICATED Negative NEGATIVE [facility] Work Phone: URINALYSIS WITH CULTURE IF INDICATED <2.0 0.0 - 1.9 [facility] Work Phone: URINALYSIS WITH CULTURE IF INDICATED CLOUDY CLEAR [facility] Work Phone: Urinalysis, Microscopicon Urinalysis, Microscopic 1+ Abnormal [facility] Work Phone: Urinalysis, Microscopic >100 Abnormal 0-5 -[facility] Work Phone: Urinalysis, Microscopic 0-5 0-5 [facility] Work Phone: CT Abdomen and Pelvis with I V Contraston 05-12-2023 CT Abdomen and Pelvis W contrast IV Normal -[facility] Work Phone: Complete Blood Count + Diffe rentialon 05-12-2023 Basophils/100 WBC (Bld) 0.8 % 0.0 - 2.0 [facility] Work Phone: Erythrocyte distribution width (RBC) [Ratio] 12.3 % See Below [facility] Work Phone: Comment on above: Reference Range: 11. 5 - 14.5 Hematocrit (Bld) [Volume fraction] 42.7 % See Below [facility] Work Phone: Comment on above: Reference Range: 36. 0 - 46.0 Hemoglobin (Bld) [Mass/Vol] 14.1 g/dL See Below [facility] Work Phone: Comment on above: Reference Range: 12. 0 - 16.0 Lymphocytes/100 WBC (Bld) 26.2 % See Below [facility] Work Phone: Comment on above: Reference Range: 13. 0 - 44.0 MCHC (RBC) [Mass/Vol] 33.0 g/dL See Below [facility]- [facility] Work Phone: Comment on above: Reference Range: 32. 0 - 36.0 MCV (RBC) [Entitic vol] 90 fL 80 - 100 [facility] Work Phone: Monocytes/100 WBC (Bld) 7.8 % 2.0 - 10.0 [facility] Work Phone: Neutrophils/100 WBC (Bld) 61.7 % See Below [facility] Work Phone: Comment on above: Reference Range: 40. 0 - 80.0 Platelets (Bld) [#/Vol] 535 10*3/uL above high threshold 150 - 450 [facility] Work Phone: RBC (Bld) [#/Vol] 4.74 {x10E12/L} See Below MP -[facility] Work Phone: Comment on above: Reference Range: 4.0 0 - 5.20 WBC (Bld) [#/Vol] 7.3 10*3/uL 4.4 - 11.3 MP[facility] n [facility] Work Phone: Complete Blood Count + Differential 0.06 {x10E9/L} See Below [facility] Work Phone: Comment on above: Reference Range: 0.0 0 - 0.10 Complete Blood Count + Differential 0.22 {x10E9/L} See Below [facility] Work Phone: Comment on above: Reference Range: 0.0 0 - 0.70 Complete Blood Count + Differential 0.57 {x10E9/L} See Below [facility] Work Phone: Comment on above: Reference Range: 0.1 0 - 1.00 Complete Blood Count + Differential 1.92 {x10E9/L} See Below [facility] Work Phone: Comment on above: Reference Range: 1.2 0 - 4.80 Complete Blood Count + Differential 4.53 {x10E9/L} See Below -[facility] Work Phone: Comment on above: Reference Range: 1.2 0 - 7.70 Complete Blood Count + Differential 3.0 % 0.0 - 6.0 [facility] Work Phone: Complete Blood Count + Differential 0.5 % 0.0 - 0.9 [facility] Work Phone: Comment on above: Immature Granulocyte Count (IG) includes promyelocytes, myelocytes and metamyelocytes but does not include bands. Percent differential counts (%) should be interpreted in the context of the absolute cell counts (cells/L). Complete Blood Count + Differential 0.0 {/100_WBC} 0.0-0.0 [facility] Work Phone: HCG, Beta Quantitativeon HCG.beta subunit Qn 4 {IU/L} MP-Pa in Management-[facility] Work Phone: Comment on above: .Total HCG measureme nt is performed using the Siemens Atellicaimmunoassay which detects intact HCG and free beta HCG subunit..This test is not indicated for use as a tumor marker.HCG testing is performed using a different test methodology at [facility] than other [place] [facility]. Direct result comparisonshould only be made within the same method..REF VALUESNON FEMALE <5MALES <5 Laboratory - Chemistry and C hemistry - challengeon 05-12-2023 Albumin BCP dye [Mass/Vol] 4.9 g/dL 3.4 - 5.0 [facility] Work Phone: ALP [Catalytic activity/Vol] 79 U/L 33 - 110 [facility] Work Phone: ALT With P-5'-P [Catalytic activity/Vol] 60 U/L above high threshold 7 - 45 [facility] Work Phone: Comment on above: Patients treated wit h Sulfasalazine may generate falsely decreased results for ALT. Anion gap [Moles/Vol] 18 mmol/L 10 - 20 MP- [facility] Work Phone: AST With P-5'-P [Catalytic activity/Vol] 46 U/L above high threshold 9 - 39 [facility] Work Phone: Bilirubin [Mass/Vol] 0.3 mg/dL 0.0 - 1.2 MP-P ain [facility] Work Phone: Calcium [Mass/Vol] 10.0 mg/dL 8.6 - 10.6 MP-[facility]in n [facility] Work Phone: Chloride [Moles/Vol] 88 mmol/L below low threshold 98 - 107 [facility] Work Phone: CO2 [Moles/Vol] 32 mmol/L 21 - 32 [facility] Work Phone: Creatinine [Mass/Vol] 0.86 mg/dL See Below MP- [facility] Work Phone: Comment on above: Reference Range: 0.5 0 - 1.05 Glucose [Mass/Vol] 117 mg/dL above high threshold 74 - 99 [facility] Work Phone: Potassium [Moles/Vol] 3.0 mmol/L below low threshold 3.5 - 5.3 -[facility] Work Phone: Protein [Mass/Vol] 8.6 g/dL above high threshold 6.4 - 8.2 [facility] Work Phone: Sodium [Moles/Vol] 135 mmol/L below low threshold 136 - 145 [facility] Work Phone: Urea nitrogen [Mass/Vol] 17 mg/dL 6 - 23 [facility] Work Phone: Laboratory - Drug toxicology on 05-12-2023 Amphetamines Screen Ql (U) Negative NEGATIVE [facility] Work Phone: Comment on above: CUTOFF LEVEL: 500 NG /ML Cross-reactivity has been reported with high concentrations of the following drugs: buproprion, chloroquine, chlorpromazine, ephedrine, mephentermine, fenfluramine, phentermine, phenylpropanolamine, pseudoephedrine, and propranolol. Barbiturates Screen Ql (U) Negative NEGATIVE [facility] Work Phone: Comment on above: CUTOFF LEVEL: 200 NG /ML Benzodiazepines Ql (U) Negative NEGATIVE -[facility] Work Phone: Comment on above: CUTOFF LEVEL: 200 NG /ML Benzoylecgonine Screen Ql (U) Negative NEGATIVE [facility] Work Phone: Comment on above: CUTOFF LEVEL: 150 NG /ML Cannabinoids Screen Ql (U) Negative NEGATIVE [facility] Work Phone: Comment on above: CUTOFF LEVEL: 50 NG/ ML Opiates Screen Ql (U) Negative NEGATIVE MP- [facility] Work Phone: Comment on above: CUTOFF LEVEL: 300 NG /ML The opiate screen does not detect fentanyl, meperidine, or tramadol. Oxycodone is not consistently detected (refer to Oxycodone Screen, Urine result). oxyCODONE+oxyMORphone Screen Ql (U) Positive Abnormal NEGATIVE [facility] Work Phone: Comment on above: CUTOFF LEVEL: 100 NG /ML This test will accurately detect both oxycodone and oxymorphone. Phencyclidine Ql (U) Negative NEGATIVE MP-P ain [facility] Work Phone: Comment on above: CUTOFF LEVEL: 25 NG/ ML Cross-reactivity has been reported with dextromethorphan. Lipase, Serumon 05-12-2023 Lipase [Catalytic activity/Vol] 161 U/L above high threshold 9 - 82 [facility] Work Phone: Comment on above: Venipuncture immedia tely after or during the administration of Metamizole may lead to falsely low results. Testing should be performed immediately prior to Metamizole dosing. Z-dpnwjw-b-benzoquinone imine (metabolite of Acetaminophen) will generate erroneously low results in samples for patients that have taken toxic doses of acetaminophen. No Panel Informationon 05-12 SEE BELOW [facility] Work Phone: Comment on above: Drug screen results are presumptive and should not be used to assess compliance with prescribed medication. Contact the performing [facility] laboratory to add-on definitive confirmatory testing [...] medical directors. 83 {mL/min/1.73m2} >90 MP-Colin n [facility] Work Phone: Comment on above: CALCULATIONS OF ESTUARDO MATED GFR ARE PERFORMED USING THE 2020 CKD-EPI STUDY REFIT EQUATION WITHOUT THE RACE VARIABLE FOR THE IDMS-TRACEABLE CREATININE METHODS.https://jasn.asnjournals.org/content// N.9366303632 URINALYSIS WITH CULTURE IF I NDICATEDon 05-12-2023 Color (U) YELLOW See Below [employer]-[facility] [place] [employer] Work Phone: Comment on above: Reference Range: STR AW,YELLOW Glucose Ql (U) Negative NEGATIVE MP-[facility] [employer] Work Phone: Ketones Ql (U) Negative NEGATIVE MP-[facility] [place] [employer] Work Phone: Leukocyte esterase Test strip Ql (U) Negative NEGATIVE MP-[facility] [place] [employer] Work Phone: pH (U) 7.0 [pH] 5.0 - 8.0 [facility] [employer] Work Phone: Protein (U) [Mass/Vol] Negative NEGATIVE [facility] [employer] Work Phone: RBC (U) [#/Vol] Negative NEGATIVE MP-[facility] [place] [employer] Work Phone: Specific gravity (U) [Rel density] 1.011 1 See Below -[facility] [employer] Work Phone: Comment on above: Reference Range: 1.0 05 - 1.035 URINALYSIS WITH CULTURE IF INDICATED Negative NEGATIVE [facility] [employer] Work Phone: Comment on above: CUTOFF LEVEL: 5 NG/M L URINALYSIS WITH CULTURE IF INDICATED <2.0 0.0 - 1.9 [facility] [employer] Work Phone: URINALYSIS WITH CULTURE IF INDICATED CLEAR CLEAR [facility] [employer] Work Phone: .Auto DiffOrdered By: SYSTEM SYSTEM on 05-09-2023 Basophil, Absolute 0.2 103/mcL Normal 0.0-0.2 AO Wo rkflow SS Comment on above: Performed By: #### U A, PREGU #### Sean [address] [place], [place] [address] Basophils/100 WBC (Bld) 1.5 % Normal 0.0-2.5 AO Workflow SS Comment on above: Performed By: #### U A, PREGU #### Sean [address] [place], [place] [address] Eosinophil, Absolute 0.3 103/mcL Normal 0.0-0.4 AO Workflow SS Comment on above: Performed By: #### U A, PREGU #### Sean [address] [place], [place] [address] Eosinophils/100 WBC (Bld) 2.8 % Normal 0.0-7.0 AO Workflow SS Comment on above: Performed By: #### U A, PREGU #### Sean [address] [place], [place] [address] Lymphocyte, Absolute 2.5 103/mcL Normal 0.8-3.9 AO Workflow SS Comment on above: Performed By: #### U A, PREGU #### Sean [address] [place], [place] [address] Lymphocytes/100 WBC (Bld) 20.8 % Normal 10.0-50.0 AO Workflow SS Comment on above: Performed By: #### U A, PREGU #### Sean [address] [place], [place] [address] Monocyte, Absolute 0.7 103/mcL Normal 0.2-1.0 AO Wo rkflow SS Comment on above: Performed By: #### U A, PREGU #### Sean [address] [place], [place] [address] Monocytes/100 WBC (Bld) 5.4 % Normal 1.7-13.0 AO Workflow SS Comment on above: Performed By: #### U A, PREGU #### Sean [address] [place], [place] [address] Neutrophils/100 WBC (Bld) 69.5 % Normal 37.0-80.0 AO Workflow SS Comment on above: Performed By: #### U A, PREGU #### Sean [address] [place], [place] [address] .GFRon 05-09-2023 GFR Non- 67 ml/min/1.73sqm Normal [facility] ([place]) Comment on above: Result Comment: GFR Population [...] By: #### U A, PREGU #### Sean [address] [place], [place] [address] GFR 81 ml/min/1.73sqm Normal [facility] ([place]) Comment on above: Result Comment: GFR [...] By: #### U A, PREGU #### Sean [address] [place], [place] [address] .MDWon 05-09-2023 Monocyte Distribution Width 19.94 Normal 0.00-20.00 [facility] ([place]) Comment on above: Result Comment: For ED adult patients suspected of sepsis, MDW<=20.0 does not rule out sepsis or risk of sepsis Performed By: #### U Abigail, PREGU #### Sean [address] [place], [place] [address] .NEUABSOrdered By: SYSTEM SY STEM on 05-09-2023 Neutrophil, Absolute 8.4 103/mcL High 2.9-6.2 AO Workflow SS Comment on above: Performed By: #### U A, PREGU #### Sean [address] [place], [place] [address] .Urinalysis Microscopic (AO) on 05-09-2023 UA RBC 0-5 Abnormal None Seen [facility] ([place]) Comment on above: Performed By: #### A DIFF, ANEU, CMP, MG, GFR, LD, CRP, CBC, ESR #### Sean [address] [address] UA Squam Epithelial 0-5 Abnormal None Seen [facility] ([place]) Comment on above: Performed By: #### A DIFF, ANEU, CMP, MG, GFR, LD, CRP, CBC, ESR #### [address] [address] UA WBC None Seen Normal None Seen [facility] ([place]) Comment on above: Performed By: #### A DIFF, ANEU, CMP, MG, GFR, LD, CRP, CBC, ESR #### [address] [address] CBCOrdered By: SYSTEM SYSTEM on 05-09-2023 Erythrocyte distribution width (RBC) [Ratio] 13.7 % Normal 11.5-14.5 AO Workflow SS Comment on above: Performed By: #### U A, PREGU #### Sean [address] [place], [place] [address] Hematocrit (Bld) [Volume fraction] 40.6 % Normal 37.0-47.0 AO Workflow SS Comment on above: Performed By: #### U A, PREGU #### Sean [address] [place] [id number] MCH (RBC) [Entitic mass] 30.0 pg Normal 27.0-31.2 AO Workflow SS Comment on above: Performed By: #### U A, PREGU #### Sean [address] [place], [place] [address] MCHC 33.0 G/dL Normal 33.0-37.0 AO Workflow SS Comment on above: Performed By: #### U A, PREGU #### Sean [address] [place], [place] [address] MCV (RBC) [Entitic vol] 90.9 fL Normal 80.0-94.0 AO Workflow SS Comment on above: Performed By: #### U A, PREGU #### Sean [address] [place], [place] [address] Platelet mean volume (Bld) [Entitic vol] 6.2 fL Low 7.4-10.4 AO Workflow SS Comment on above: Performed By: #### U A, PREGU #### Sean [address] [place], [place] [address] CBCon 05-09-2023 Hgb 13.4 G/dL Normal 12.0-16.0 [facility] ([place]) Comment on above: Performed By: #### U A, PREGU #### Sean [address] [place], [place] [address] Platelet 487 10 3/mcL High 130-400 [facility] ([place]) Comment on above: Performed By: #### U A, PREGU #### Sean [address] [place], [place] [address] RBC 4.46 10 6/mcL Normal 4.20-5.40 [facility] ([place]) Comment on above: Performed By: #### U A, PREGU #### Sean [address] [place], [place] [address] WBC 12.1 10 3/mcL High 4.6-10.8 [facility] ([place]) Comment on above: Performed By: #### U A, PREGU #### Sean [address] [place], [place] [address] CMPon 05-09-2023 Albumin Level 4.3 G/dL Normal 3.5-5.0 [facility] ([place]) Comment on above: Performed By: #### U A, PREGU #### Sean [address] [place], [place] [address] ALT [Catalytic activity/Vol] 58 U/L Normal 14-59 [facility] ([place]) Comment on above: Performed By: #### U A, PREGU #### Seanoz [address] [place], [place] [address] AST [Catalytic activity/Vol] 30 U/L Normal 10-40 [facility] ([place]) Comment on above: Performed By: #### U A, PREGU #### Seanoz [address] [place], [place] [address] Bili Total 0.3 mg/dL Normal 0.2-1.0 [facility] ([place]) Comment on above: Result Comment: Use of this assay is not recommended for patients undergoing treatment with eltrombopag due to the potential for falsely elevated results. Performed By: #### U A, PREGU #### Seanoz [address] [place], [place] [address] BUN/Creatinine Ratio 27 ratio Normal 7-27 [facility] ([place]) Comment on above: Performed By: #### U A, PREGU #### Sean [address] [place], [place] [address] Total Protein 8.2 G/dL Normal 6.4-8.2 [facility] ([place]) Comment on above: Performed By: #### U A, PREGU #### Seanoz [address] [place], [place] [address] CMPOrdered By: SYSTEM SYSTEM on 05-09-2023 Albumin/Globulin [Mass ratio] 1.1 {ratio} Normal 1.1-2.5 AO ADM SS Comment on above: Performed By: #### U A, PREGU #### Sean [address] [place], [place] [address] ALP [Catalytic activity/Vol] 81 U/L Normal 40-135 AO ADM SS Comment on above: Performed By: #### U A, PREGU #### Sean [address] [place], [place] [address] Calcium [Mass/Vol] 9.6 mg/dL Normal 8.4-10.2 AO ADM SS Comment on above: Performed By: #### U A, PREGU #### Sean [address] [place], [place] [address] Chloride [Moles/Vol] 98 mmol/L Normal 98-107 AO A DM SS Comment on above: Performed By: #### U Abigail, PREGU #### Sean [address] [place], [place] [address] CO2 [Moles/Vol] 27 mmol/L Normal 22-29 AO ADM SS Comment on above: Performed By: #### U Abigail, PREGU #### Sean [address] [place], [place] [address] Creatinine [Mass/Vol] 0.90 mg/dL Normal 0.55-1.02 AO ADM SS Comment on above: Performed By: #### U Abigail, PREGU #### Sean [address] [place], [place] [address] Electrolyte Balance 11.0 mEq/L Normal 4.0-15.0 AO AD M SS Comment on above: Performed By: #### Jed Hayes, PREGU #### Sean [address] [place], [place] [address] Globulin 3.9 G/dL Normal AO ADM SS Comment on above: Performed By: #### U Abigail, PREGU #### Saen [address] [place], [place] [address] Glucose [Mass/Vol] 115 mg/dL High 70-105 AO ADM SS Comment on above: Performed By: #### U Abigail, PREGU #### Sean [address] [place], [place] [address] Potassium [Moles/Vol] 4.3 mmol/L Normal 3.5-5.1 AO ADM SS Comment on above: Performed By: #### U Abigail, PREGU #### Sean [address] [place], [place] [address] Sodium [Moles/Vol] 136 mmol/L Normal 136-145 AO ADM SS Comment on above: Performed By: #### U A, PREGU #### Sean [address] [place], [place] [address] Urea nitrogen [Mass/Vol] 24 mg/dL High 7-18 AO ADM SS Comment on above: Performed By: #### U A, PREGU #### Sean [address] [place], [place] [address] LABORATORYOrdered By: SYSTEM SYSTEM on 05-09-2023 Albumin [...] 05-09-2023 Lipase Level 49 U/L Normal 16-77 [facility] ([place]) Comment on above: Performed By: #### U A, PREGU #### [facility] [place] [address] [place], [place] [address] UAon 05-09-2023 Color (U) Yellow Normal [facility] ([place]) Comment on above: Performed By: #### A DIFF, ANEU, CMP, MG, GFR, LD, CRP, CBC, ESR #### [address] [address] Glucose (U) [Mass/Vol] Negative Normal Negative [facility] ([place]) Comment on above: Performed By: #### A DIFF, ANEU, CMP, MG, GFR, LD, CRP, CBC, ESR #### [address] [address] UA Appear Cloudy Abnormal Clear [facility] ([place]) Comment on above: Performed By: #### A DIFF, ANEU, CMP, MG, GFR, LD, CRP, CBC, ESR #### [address] [address] UA Blood Negative Normal Negative [facility] ([place] Comment on above: Performed By: #### A DIFF, ANEU, CMP, MG, GFR, LD, CRP, CBC, ESR #### [address] [address] UA Leuk Est Negative Normal Negative [facility] ([place]) Comment on above: Performed By: #### A DIFF, ANEU, CMP, MG, GFR, LD, CRP, CBC, ESR #### [address] [address] UA Nitrite Negative Normal Negative [facility] ([place] Comment on above: Performed By: #### A DIFF, ANEU, CMP, MG, GFR, LD, CRP, CBC, ESR #### [address] [address] UA pH 7.5 Normal 5.0 - 8.0 [facility] ([place]) Comment on above: Performed By: #### A DIFF, ANEU, CMP, MG, GFR, LD, CRP, CBC, ESR #### [address] [address] UA Spec Grav 1.020 Normal 1.015-1.025 [facility] ([place]) Comment on above: Performed By: #### A DIFF, ANEU, CMP, MG, GFR, LD, CRP, CBC, ESR #### [address] [address] UA Specimen Type Clean Catch Normal [facility] ([place]) Comment on above: Performed By: #### A DIFF, ANEU, CMP, MG, GFR, LD, CRP, CBC, ESR #### [address] [address] UA Urobilinogen 0.2 E.U./dL Normal 0.2-1.0 [facility] ([place]) Comment on above: Performed By: #### A DIFF, ANEU, CMP, MG, GFR, LD, CRP, CBC, ESR #### [address] [address] Urobilinogen (U) [Mass/Vol] Negative Normal Negative [facility] ([place]) Comment on above: Performed By: #### A DIFF, ANEU, CMP, MG, GFR, LD, CRP, CBC, ESR #### [address] [address] UAOrdered By: Elaine covington 05-09-2023 Ketones Ql (U) Negative Normal Negative AO Auto Ur ine SS Comment on above: Performed By: #### A DIFF, ANEU, CMP, MG, GFR, LD, CRP, CBC, ESR #### [address] [place], [place] [address] UA Protein Negative Normal Negative AO Auto Urine SS Comment on above: Performed By: #### A DIFF, ANEU, CMP, MG, GFR, LD, CRP, CBC, ESR #### [address] [place], [place] [address] Initial Visit (Pain Medicine )on 05-04-2023 Initial Visit (Pain Medicine) No report was sent Normal [facility] ED Nursing Noteon 04-30-2023 ED Nursing Note Called [facility] o give Nurse to nurse report but was informed that the nurse already received report. Chart and records sent with bottom hoop driver Caron Saucedo RN 04/30/23 0203 [facility] ED Nursing Note Pt arrived through [facility] ED with [facility]. This RN spoke with Gael RN coordinator at [facility] ED. Pt was en route to [facility] in [place] for psych admit. 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 [facility] dispatch advised to come to nearest [...] Pt has allergies to Penicillin, Neurontin, sulfa. [facility] was notifed of pt being brought to [facility] ED. Chayito Stated pt had left ED calm and cooperative. This RN called [facility] and spoke with Dianne VILLANUEVA. Bed is held for pt once cleared by [facility] ED. Will fax paperwork needed to [facility] prior to transport. Jennifer Hancock RN 04/29/23 2322 Jennifer Hancock RN 04/29/23 2333 Jennifer Hancock RN 04/29/23 2342 Jennifer Hancock RN 04/29/23 2348 Normal [facility] ED Nursing Note Room cleared and mad e safe per protocol, protective services in ED for safety of patient and staff. Patient in gown already from transport. Belongings already bagged and brought in by transporter radiology, checked by [facility] protective services Caron Saucedo RN 04/29/23 7911 Normal [facility] ED Provider Noteon ED Provider Note EMERGENCY DEPARTMENT ENCOUNTER Pt Name: Dorothea Rutledge Birthdate 1975 Date of evaluation: 04/29/2023 ED Provider: Lisbeth Davies DO CHIEF COMPLAINT Chief Complaint Patient presents with Psychiatric Evaluation Being transported from [facility] to [facility] for behavioral, anxiety and depression. En route patient became aggressive and confused so the snaker tractor driver came here for emergency assistance. Word [...] medically cleared and plan to admit to [facility] in [place]. In route from [facility] [...] of a (more content not included)... Normal [facility] .Auto Diffon 04-29-2023 Basophil, Absolute 0.1 10 3/mcL Normal 0.0-0.2 [facility] ([place]) Comment on above: Performed By: #### A DIFF, ANEU, CMP, MG, GFR, LD, CRP, CBC, ESR #### [address] [address] Basophils/100 WBC (Bld) 0.8 % Normal 0.0-2.5 [facility] ([place]) Comment on above: Performed By: #### A DIFF, ANEU, CMP, MG, GFR, LD, CRP, CBC, ESR #### [address] [address] Eosinophil, Absolute 0.1 10 3/mcL Normal 0.0-0.4 [facility] ([place]) Comment on above: Performed By: #### A DIFF, ANEU, CMP, MG, GFR, LD, CRP, CBC, ESR #### Sean [address] [address] Eosinophils/100 WBC (Bld) 1.0 % Normal 0.0-7.0 [facility] ([place]) Comment on above: Performed By: #### A DIFF, ANEU, CMP, MG, GFR, LD, CRP, CBC, ESR #### [address] [address] Lymphocyte, Absolute 1.5 10 3/mcL Normal 0.8-3.9 [facility] ([place]) Comment on above: Performed By: #### A DIFF, ANEU, CMP, MG, GFR, LD, CRP, CBC, ESR #### [address] [address] Lymphocytes/100 WBC (Bld) 13.5 % Normal 10.0-50.0 [facility] ([place]) Comment on above: Performed By: #### A DIFF, ANEU, CMP, MG, GFR, LD, CRP, CBC, ESR #### [address] [address] Monocyte, Absolute 0.5 10 3/mcL Normal 0.2-1.0 [facility] ([place]) Comment on above: Performed By: #### A DIFF, ANEU, CMP, MG, GFR, LD, CRP, CBC, ESR #### [address] [address] Monocytes/100 WBC (Bld) 4.5 % Normal 1.7-13.0 [facility] ([place]) Comment on above: Performed By: #### A DIFF, ANEU, CMP, MG, GFR, LD, CRP, CBC, ESR #### [address] [address] Neutrophils/100 WBC (Bld) 80.2 % High 37.0-80.0 [facility] ([place]) Comment on above: Performed By: #### A DIFF, ANEU, CMP, MG, GFR, LD, CRP, CBC, ESR #### [address] [address] .GFRon 04-29-2023 GFR 102 ml/min/1.73sqm Normal [facility] ([place]) Comment on above: Result Comment: GFR [...] By: #### U A, PREGU #### [address] [place], [place] [address] GFR Non- 84 ml/min/1.73sqm Normal [facility] ([place]) Comment on above: Result Comment: GFR Population [...] By: #### U A, PREGU #### [address] [place], [place] [address] .MDWon 04-29-2023 Monocyte Distribution Width Not performed Normal 0.00-20.00 [facility] ([place]) Comment on above: Result Comment: MDW testing performed only on adult ER patients between the ages of 18-89 years. Performed By: #### A DIFF, ANEU, CMP, MG, GFR, LD, CRP, CBC, ESR #### Sean [address] [address] .NEUABSon 04-29-2023 Neutrophil, Absolute 9.0 10 3/mcL High 2.9-6.2 [facility] ([place]) Comment on above: Performed By: #### A DIFF, ANEU, CMP, MG, GFR, LD, CRP, CBC, ESR #### [place] [address] .Urinalysis Microscopic (AO) on 04-29-2023 UA Bacteria Trace Abnormal [facility] ([place]) Comment on above: Performed By: #### A DIFF, ANEU, CMP, MG, GFR, LD, CRP, CBC, ESR #### [place] [address] UA Fatty Casts 0-5 Abnormal [facility] ([place]) Comment on above: Performed By: #### A DIFF, ANEU, CMP, MG, GFR, LD, CRP, CBC, ESR #### [place] [address] UA Mucous 1+ /hpf Normal [facility] ([place]) Comment on above: Performed By: #### A DIFF, ANEU, CMP, MG, GFR, LD, CRP, CBC, ESR #### [place] [address] UA RBC 0-5 Abnormal None Seen [facility] ([place]) Comment on above: Performed By: #### A DIFF, ANEU, CMP, MG, GFR, LD, CRP, CBC, ESR #### [place] [address] UA Squam Epithelial 0-5 Abnormal None Seen [facility] ([place]) Comment on above: Performed By: #### A DIFF, ANEU, CMP, MG, GFR, LD, CRP, CBC, ESR #### [place] [address] UA WBC 0-5 Abnormal None Seen [facility] ([place]) Comment on above: Performed By: #### A DIFF, ANEU, CMP, MG, GFR, LD, CRP, CBC, ESR #### [place] [address] ACETAon 04-29-2023 Acetaminophen [Mass/Vol] 0.0 ug/mL Low 10.0-30.0 [facility] ([place]) Comment on above: Performed By: #### A DIFF, ANEU, CMP, MG, GFR, LD, CRP, CBC, ESR #### [place] [address] Yony 04-29-2023 Ethanol Level <3 Normal 0-3 [facility] ([place]) Comment on above: Performed By: #### A DIFF, ANEU, CMP, MG, GFR, LD, CRP, CBC, ESR #### [place] [address] CBCon 04-29-2023 Erythrocyte distribution width (RBC) [Ratio] 13.3 % Normal 11.5-14.5 [facility] ([place]) Comment on above: Performed By: #### A DIFF, ANEU, CMP, MG, GFR, LD, CRP, CBC, ESR #### [place] [address] Hematocrit (Bld) [Volume fraction] 40.6 % Normal 37.0-47.0 [facility] ([place]) Comment on above: Performed By: #### A DIFF, ANEU, CMP, MG, GFR, LD, CRP, CBC, ESR #### [place] [id number] Hgb 13.6 G/dL Normal 12.0-16.0 [facility] ([place]) Comment on above: Performed By: #### A DIFF, ANEU, CMP, MG, GFR, LD, CRP, CBC, ESR #### [address] [address] MCH (RBC) [Entitic mass] 30.3 pg Normal 27.0-31.2 [facility] ([place]) Comment on above: Performed By: #### A DIFF, ANEU, CMP, MG, GFR, LD, CRP, CBC, ESR #### [place] [address] MCHC 33.6 G/dL Normal 33.0-37.0 [facility] ([place]) Comment on above: Performed By: #### A DIFF, ANEU, CMP, MG, GFR, LD, CRP, CBC, ESR #### [address] [address] MCV (RBC) [Entitic vol] 90.4 fL Normal 80.0-94.0 [facility] ([place]) Comment on above: Performed By: #### A DIFF, ANEU, CMP, MG, GFR, LD, CRP, CBC, ESR #### [address] [address] Platelet 487 10 3/mcL High 130-400 [facility] ([place]) Comment on above: Performed By: #### A DIFF, ANEU, CMP, MG, GFR, LD, CRP, CBC, ESR #### [address] [address] Platelet mean volume (Bld) [Entitic vol] 6.8 fL Low 7.4-10.4 [facility] ([place]) Comment on above: Performed By: #### A DIFF, ANEU, CMP, MG, GFR, LD, CRP, CBC, ESR #### [address] [address] RBC 4.50 10 6/mcL Normal 4.20-5.40 [facility] ([place]) Comment on above: Performed By: #### A DIFF, ANEU, CMP, MG, GFR, LD, CRP, CBC, ESR #### [address] [address] WBC 11.2 10 3/mcL High 4.6-10.8 [facility] ([place]) Comment on above: Performed By: #### A DIFF, ANEU, CMP, MG, GFR, LD, CRP, CBC, ESR #### [address] [address] CKon 04-29-2023 CK [Catalytic activity/Vol] 74 U/L Normal 26-192 [facility] ([place]) Comment on above: Performed By: #### C K #### [address] [address] CMPon 04-29-2023 Albumin Level 4.4 G/dL Normal 3.5-5.0 [facility] ([place]) Comment on above: Performed By: #### U A, PREGU #### [facility] [place] [address] [place], [place] [address] Albumin/Globulin [Mass ratio] 1.2 {ratio} Normal 1.1-2.5 [facility] ([place]) Comment on above: Performed By: #### U A, PREGU #### [facility] [place] [address] [place], [place] [address] ALP [Catalytic activity/Vol] 109 U/L Normal 40-135 [facility] ([place]) Comment on above: Performed By: #### U A, PREGU #### [facility] [place] [address] [place], [place] [address] ALT [Catalytic activity/Vol] 112 U/L High 14-59 [facility] ([place]) Comment on above: Performed By: #### U A, PREGU #### [facility] [place] [address] [place], [place] [address] AST [Catalytic activity/Vol] 56 U/L High 10-40 [facility] ([place]) Comment on above: Performed By: #### U A, PREGU #### [facility] [place] [address] [place], [place] [address] Bili Total 0.5 mg/dL Normal 0.2-1.0 [facility] ([place]) Comment on above: Result Comment: Use of this assay is not recommended for patients undergoing treatment with eltrombopag due to the potential for falsely elevated results. Performed By: #### U A, PREGU #### [facility] [place] [address] [place], [place] [address] BUN/Creatinine Ratio 12 ratio Normal 7-27 [facility] ([place]) Comment on above: Performed By: #### U A, PREGU #### [facility] [place] [address] [place], [place] [address] Calcium [Mass/Vol] 9.3 mg/dL Normal 8.4-10.2 [facility] ([place]) Comment on above: Performed By: #### U A, PREGU #### [address] [place], [place] [address] Chloride [Moles/Vol] 99 mmol/L Normal 98-107 [facility] ([place]) Comment on above: Performed By: #### U A, PREGU #### [address] [place], [place] [address] CO2 [Moles/Vol] 26 mmol/L Normal 22-29 [facility] ([place]) Comment on above: Performed By: #### U A, PREGU #### [address] [place], [place] [address] Creatinine [Mass/Vol] 0.74 mg/dL Normal 0.55-1.02 [facility] ([place]) Comment on above: Performed By: #### U A, PREGU #### [address] [place], [place] [address] Electrolyte Balance 14.0 mEq/L Normal 4.0-15.0 [facility] ([place]) Comment on above: Performed By: #### U A, PREGU #### [address] [place], [place] [address] Globulin 3.8 G/dL Normal [facility] ([place]) Comment on above: Performed By: #### U A, PREGU #### [address] [place], [place] [address] Glucose [Mass/Vol] 135 mg/dL High 70-105 [facility] ([place]) Comment on above: Performed By: #### U A, PREGU #### [address] [place], [place] [address] Potassium [Moles/Vol] 3.2 mmol/L Low 3.5-5.1 [facility] ([place]) Comment on above: Performed By: #### U A, PREGU #### [facility] [address] [place], [place] [address] Sodium [Moles/Vol] 139 mmol/L Normal 136-145 [facility] ([place]) Comment on above: Performed By: #### U A, PREGU #### [facility] [place] [address] [place], [place] [address] Total Protein 8.2 G/dL Normal 6.4-8.2 [facility] ([place]) Comment on above: Performed By: #### U A, PREGU #### [facility] [place] [address] [place], [place] [address] Urea nitrogen [Mass/Vol] 9 mg/dL Normal 7-18 [facility] ([place]) Comment on above: Performed By: #### U A, PREGU #### [facility] [place] [address] [place], [place] [address] [id number] 04-29-2023 SARS-CoV-2 (COVID-19) RNA SANNA+probe Ql (Unsp spec) Negative Normal Negative [facility] ([place]) Comment on above: Performed By: #### U A, PREGU #### [facility] [place] [address] [place], [place] [address] SARS-CoV-2 (COVID-19) RNA SANNA+probe Ql (Unsp spec) Normal [facility] ([place]) Comment on above: Result Comment: Nega tive [...] By: #### U A, PREGU #### [address] [place] [address] LABORATORYOrdered By: Bessy Bhatti on 04-29-2023 Amphetamines [...] 04-29-2023 Lipase Level 51 U/L Normal 16-77 [facility] ([place]) Comment on above: Performed By: #### U A, PREGU #### [facility] [place] [address] [place], [place] [address] PREGUon 04-29-2023 HCG ( test) Ql (U) Negative Normal [facility] ([place]) Comment on above: Performed By: #### A DIFF, ANEU, CMP, MG, GFR, LD, CRP, CBC, ESR #### [address] [address] test (u) int Not detected Invalid Interpretation Code [facility] ([place]) Comment on above: Performed By: #### A DIFF, ANEU, CMP, MG, GFR, LD, CRP, CBC, ESR #### [address] [address] SALon 04-29-2023 Salicylate Level 3.1 mg/dL Normal 2.8-20.0 [facility] ([place]) Comment on above: Performed By: #### A DIFF, ANEU, CMP, MG, GFR, LD, CRP, CBC, ESR #### [address] [address] TOXSCon 04-29-2023 U Ampheta (AO) Negative Normal [facility] ([place]) Comment on above: Performed By: #### A DIFF, ANEU, CMP, MG, GFR, LD, CRP, CBC, ESR #### [address] [address] U Angy (AO) Negative [facility] ([place]) Comment on above: Performed By: #### A DIFF, ANEU, CMP, MG, GFR, LD, CRP, CBC, ESR #### [address] [address] U Narinder (AO) Negative [facility] ([place]) Comment on above: Performed By: #### A DIFF, ANEU, CMP, MG, GFR, LD, CRP, CBC, ESR #### [address] [address] U Cannab (AO) Positive [facility] ([place]) Comment on above: Performed By: #### A DIFF, ANEU, CMP, MG, GFR, LD, CRP, CBC, ESR #### [address] [address] U Cocaine (AO) Negative [facility] ([place]) Comment on above: Performed By: #### A DIFF, ANEU, CMP, MG, GFR, LD, CRP, CBC, ESR #### [address] [address] U Methadone (AO) Negative [facility] ([place]) Comment on above: Performed By: #### A DIFF, ANEU, CMP, MG, GFR, LD, CRP, CBC, ESR #### [address] [address] U PCP (AO) Positive [facility] ([place] Comment on above: Performed By: #### A DIFF, ANEU, CMP, MG, GFR, LD, CRP, CBC, ESR #### [address] [address] U TCA (AO) Negative [facility] ([place]) Comment on above: Performed By: #### A DIFF, ANEU, CMP, MG, GFR, LD, CRP, CBC, ESR #### [address] [address] Urine Opiates (AO) Positive [facility] ([place]) Comment on above: Performed By: #### A DIFF, ANEU, CMP, MG, GFR, LD, CRP, CBC, ESR #### [address] [address] UAon 04-29-2023 Color (U) Dark yellow Normal [facility] ([place]) Comment on above: Performed By: #### A DIFF, ANEU, CMP, MG, GFR, LD, CRP, CBC, ESR #### [place] [address] Glucose (U) [Mass/Vol] Negative Normal Negative [facility] ([place] Comment on above: Performed By: #### A DIFF, ANEU, CMP, MG, GFR, LD, CRP, CBC, ESR #### [place] [address] Ketones Ql (U) Trace Abnormal Negative [facility] ([place]) Comment on above: Performed By: #### A DIFF, ANEU, CMP, MG, GFR, LD, CRP, CBC, ESR #### [place] [address] UA Appear Cloudy Abnormal Clear [facility] ([place]) Comment on above: Performed By: #### A DIFF, ANEU, CMP, MG, GFR, LD, CRP, CBC, ESR #### [address] [address] UA Blood Negative Normal Negative [facility] ([place]) Comment on above: Performed By: #### A DIFF, ANEU, CMP, MG, GFR, LD, CRP, CBC, ESR #### [address] [address] UA Leuk Est Negative Normal Negative [facility] ([place]) Comment on above: Performed By: #### A DIFF, ANEU, CMP, MG, GFR, LD, CRP, CBC, ESR #### [place] [address] UA Nitrite Negative Normal Negative [facility] ([place]) Comment on above: Performed By: #### A DIFF, ANEU, CMP, MG, GFR, LD, CRP, CBC, ESR #### [address] [address] UA pH 7.0 Normal 5.0 - 8.0 [facility] ([place]) Comment on above: Performed By: #### A DIFF, ANEU, CMP, MG, GFR, LD, CRP, CBC, ESR #### [address] [address] UA Protein Negative Normal Negative [facility] ([place]) Comment on above: Performed By: #### A DIFF, ANEU, CMP, MG, GFR, LD, CRP, CBC, ESR #### [address] [address] UA Spec Grav 1.020 Normal 1.015-1.025 [facility] ([place]) Comment on above: Performed By: #### A DIFF, ANEU, CMP, MG, GFR, LD, CRP, CBC, ESR #### [address] [address] UA Specimen Type Clean Catch Normal [facility] ([place]) Comment on above: Performed By: #### A DIFF, ANEU, CMP, MG, GFR, LD, CRP, CBC, ESR #### [address] [address] UA Urobilinogen 1.0 E.U./dL Normal 0.2-1.0 [facility] ([place]) Comment on above: Performed By: #### A DIFF, ANEU, CMP, MG, GFR, LD, CRP, CBC, ESR #### [address] [address] Urobilinogen (U) [Mass/Vol] Negative Normal Negative [facility] ([place]) Comment on above: Performed By: #### A DIFF, ANEU, CMP, MG, GFR, LD, CRP, CBC, ESR #### [address] [address] Laboratory - Chemistry and C hemistry - challengeon 04-27-2023 Albumin BCP dye [Mass/Vol] 4.5 g/dL 3.4 - 5.0 [facility] Work Phone: ALP [Catalytic activity/Vol] 95 U/L 33 - 110 [facility] Work Phone: ALT With P-5'-P [Catalytic activity/Vol] 104 U/L above high threshold 7 - 45 [facility] Work Phone: Comment on above: Patients treated wit h Sulfasalazine may generate falsely decreased results for ALT. Anion gap [Moles/Vol] 19 mmol/L 10 - 20 [facility] Work Phone: AST With P-5'-P [Catalytic activity/Vol] 73 U/L above high threshold 9 - 39 [facility] Work Phone: Bilirubin [Mass/Vol] 0.6 mg/dL 0.0 - 1.2 [facility] Work Phone: Calcium [Mass/Vol] 9.7 mg/dL 8.6 - 10.6 [facility] Work Phone: Chloride [Moles/Vol] 94 mmol/L below low threshold 98 - 107 [facility] Work Phone: CO2 [Moles/Vol] 27 mmol/L 21 - 32 [facility] Work Phone: Creatinine [Mass/Vol] 0.60 mg/dL See Below - [facility] Work Phone: Comment on above: Reference Range: 0.5 0 - 1.05 Glucose [Mass/Vol] 151 mg/dL above high threshold 74 - 99 [facility] Work Phone: Potassium [Moles/Vol] 3.2 mmol/L below low threshold 3.5 - 5.3 [facility] Work Phone: Protein [Mass/Vol] 7.6 g/dL 6.4 - 8.2 [facility] Work Phone: Sodium [Moles/Vol] 137 mmol/L 136 - 145 [facility] Work Phone: Urea nitrogen [Mass/Vol] 10 mg/dL 6 - 23 [facility] Work Phone: Laboratory - Hematology and Cell countson 04-27-2023 Erythrocyte distribution width (RBC) [Ratio] 12.1 % See Below -[facility] Work Phone: Comment on above: Reference Range: 11. 5 - 14.5 Hematocrit (Bld) [Volume fraction] 44.1 % See Below -[facility] Work Phone: Comment on above: Reference Range: 36. 0 - 46.0 Hemoglobin (Bld) [Mass/Vol] 14.0 g/dL See Below -[facility] Work Phone: Comment on above: Reference Range: 12. 0 - 16.0 MCHC (RBC) [Mass/Vol] 31.7 g/dL below low threshold See Below -[facility] Work Phone: Comment on above: Reference Range: 32. 0 - 36.0 MCV (RBC) [Entitic vol] 95 fL 80 - 100 [facility] Work Phone: Platelets (Bld) [#/Vol] 426 10*3/uL 150 - 450 -[facility] Work Phone: RBC (Bld) [#/Vol] 4.62 {x10E12/L} See Below MP [facility] Work Phone: Comment on above: Reference Range: 4.0 0 - 5.20 WBC (Bld) [#/Vol] 7.0 10*3/uL 4.4 - 11.3 [facility] Work Phone: No Panel Informationon 04-27 >90 >90 -[facility] Work Phone: Comment on above: CALCULATIONS OF ESTUARDO MATED GFR ARE PERFORMED USING THE 2020 CKD-EPI STUDY REFIT EQUATION WITHOUT THE RACE VARIABLE FOR THE IDMS-TRACEABLE CREATININE METHODS.https://jasn.asnjournals.org/content/early/ N.7189113625 0.0 {/100_WBC} 0.0-0.0 [facility] Work Phone: CT Abdomen and Pelvis with I V Contraston 04-26-2023 CT Abdomen and Pelvis W contrast IV Normal -Pain [facility] Work Phone: CT Abdomen and Pelvis W contrast IV Please click on the link to view the study images Normal -Pain [facility] Work Phone: Complete Blood Count + Diffe rentialon 04-26-2023 Basophils/100 WBC (Bld) 1.0 % 0.0 - 2.0 -[facility] Work Phone: Erythrocyte distribution width (RBC) [Ratio] 12.3 % See Below -Pain [facility] Work Phone: Comment on above: Reference Range: 11. 5 - 14.5 Hematocrit (Bld) [Volume fraction] 40.9 % See Below -[facility] Work Phone: Comment on above: Reference Range: 36. 0 - 46.0 Hemoglobin (Bld) [Mass/Vol] 14.1 g/dL See Below -[facility] Work Phone: Comment on above: Reference Range: 12. 0 - 16.0 Lymphocytes/100 WBC (Bld) 27.6 % See Below -[facility] [facility] Work Phone: Comment on above: Reference Range: 13. 0 - 44.0 MCHC (RBC) [Mass/Vol] 34.5 g/dL See Below MP- [facility] Work Phone: Comment on above: Reference Range: 32. 0 - 36.0 MCV (RBC) [Entitic vol] 89 fL 80 - 100 [facility] Work Phone: Monocytes/100 WBC (Bld) 7.5 % 2.0 - 10.0 [facility] Work Phone: Neutrophils/100 WBC (Bld) 60.2 % See Below [facility] Work Phone: Comment on above: Reference Range: 40. 0 - 80.0 Platelets (Bld) [#/Vol] 368 10*3/uL 150 - 450 [facility] Work Phone: RBC (Bld) [#/Vol] 4.57 {x10E12/L} See Below MP -[facility] Work Phone: Comment on above: Reference Range: 4.0 0 - 5.20 WBC (Bld) [#/Vol] 8.2 10*3/uL 4.4 - 11.3 MP-[facility] n [facility] Work Phone: Complete Blood Count + Differential 0.08 {x10E9/L} See Below [facility] Work Phone: Comment on above: Reference Range: 0.0 0 - 0.10 Complete Blood Count + Differential 0.26 {x10E9/L} See Below [facility] Work Phone: Comment on above: Reference Range: 0.0 0 - 0.70 Complete Blood Count + Differential 0.62 {x10E9/L} See Below [facility] Work Phone: Comment on above: Reference Range: 0.1 0 - 1.00 Complete Blood Count + Differential 2.27 {x10E9/L} See Below -[facility] Work Phone: Comment on above: Reference Range: 1.2 0 - 4.80 Complete Blood Count + Differential 4.95 {x10E9/L} See Below -[facility] Work Phone: Comment on above: Reference Range: 1.2 0 - 7.70 Complete Blood Count + Differential 3.2 % 0.0 - 6.0 -[facility] Work Phone: Complete Blood Count + Differential 0.5 % 0.0 - 0.9 -[facility] Work Phone: Comment on above: Immature Granulocyte Count (IG) includes promyelocytes, myelocytes and metamyelocytes but does not include bands. Percent differential counts (%) should be interpreted in the context of the absolute cell counts (cells/L). Complete Blood Count + Differential 0.0 {/100_WBC} 0.0-0.0 -[facility] Work Phone: Cult, Urineon 5 Bacteria identified Cx Nom (U) [facility] Work Phone: Hepatic Function Panelon 1 Albumin BCP dye [Mass/Vol] 4.6 g/dL 3.4 - 5.0 -[facility] Work Phone: ALP [Catalytic activity/Vol] 77 U/L 33 - 110 -[facility] Work Phone: ALT With P-5'-P [Catalytic activity/Vol] 89 U/L above high threshold 7 - 45 -Pain [facility] Work Phone: Comment on above: Patients treated wit h Sulfasalazine may generate falsely decreased results for ALT. AST With P-5'-P [Catalytic activity/Vol] 96 U/L above high threshold 9 - 39 -[facility] Work Phone: Comment on above: MILD HEMOLYSIS DETEC DEYANIRA. The result may be falsely elevated due tohemolysis or other interferents. Clinical correlation is recommended.Repeat testing may be considered. Bilirubin [Mass/Vol] 0.5 mg/dL 0.0 - 1.2 MP-P ain [facility] Work Phone: Bilirubin.direct [Mass/Vol] 0.1 mg/dL 0.0 - 0.3 MP-Pain [facility] Work Phone: Comment on above: MILD HEMOLYSIS DETEC DEYANIRA. The result may be falsely decreased due tohemolysis or other interferents. Clinical correlation is recommended.Repeat testing may be considered. Protein [Mass/Vol] 7.8 g/dL 6.4 - 8.2 MP-Colin n [facility] Work Phone: Hepatitis Panel, Acute (HCFA )on 04-26-2023 HAV IgM IA Ql Non-Reactive See Below [facility] Work Phone: Comment on above: SOURCE: Reference Ra nge: NONREACTIVE Biotin interference may cause falsely decreased results. Patients taking a Biotin dose of up to 5 mg/day should refrain from taking Biotin for 24 hours before sample collection. Providers may contact their local laboratory for further information. Hepatitis Panel, Acute (HCFA) Non-Reactive See Below [facility] Work Phone: Comment on above: Reference [...] ABO group Nom (Bld) A MP-Pa in [facility] Work Phone: Blood group antibody screen Ql Negative [facility] Work Phone: Rh immune globulin screen (Bld) [Interp] Negative -[facility] Work Phone: Comment on above: Review your Rh Negat rowena female patient's potential need for Rh Immune Globulin (RhIg)administration. Laboratory - Chemistry and C hemistry - challengeon 04-26-2023 Creatinine (U) [Mass/Vol] 64.6 mg/dL See Below -[facility] Work Phone: Comment on above: Reference Range: 20. 0 - 320.0 Sodium (U) [Moles/Vol] 28 mmol/L See Below -[facility] Work Phone: Comment on above: Reference Range: Not Established Sodium/Creatinine (U) [Ratio] 43 {mmol/g_Creat} See Below -[facility] Work Phone: Comment on above: Reference Range: Not Established Anion gap [Moles/Vol] 20 mmol/L 10 - 20 MP- [facility] Work Phone: Anion gap [Moles/Vol] 18 mmol/L 10 - 20 - Pain [facility] Work Phone: AST With P-5'-P [Catalytic activity/Vol] 99 U/L above high threshold 9 - 39 MP-Pain [facility] Work Phone: Comment on above: MILD HEMOLYSIS DETEC DEYANIRA. The result may be falsely elevated due tohemolysis or other interferents. Clinical correlation is recommended.Repeat testing may be considered. Calcium [Mass/Vol] 9.5 mg/dL 8.6 - 10.6 MP-[facility] n [facility] Work Phone: Calcium [Mass/Vol] 9.6 mg/dL 8.6 - 10.6 MP-[facility] Work Phone: Chloride [Moles/Vol] 96 mmol/L below low threshold 98 - 107 [facility] Work Phone: Chloride [Moles/Vol] 97 mmol/L below low threshold 98 - 107 [facility] Work Phone: CO2 [Moles/Vol] 23 mmol/L 21 - 32 [facility] Work Phone: CO2 [Moles/Vol] 24 mmol/L 21 - 32 [facility] Work Phone: Creatinine [Mass/Vol] 0.68 mg/dL See Below [facility]- [facility] Work Phone: Comment on above: Reference Range: 0.5 0 - 1.05 Creatinine [Mass/Vol] 0.69 mg/dL See Below [facility] Work Phone: Comment on above: Reference Range: 0.5 0 - 1.05 Glucose [Mass/Vol] 153 mg/dL above high threshold 74 - 99 [facility] Work Phone: Glucose [Mass/Vol] 155 mg/dL above high threshold 74 - 99 [facility] Work Phone: Potassium [Moles/Vol] 4.6 mmol/L 3.5 - 5.3 [facility] Work Phone: Comment on above: MILD HEMOLYSIS DETEC DEYANIRA. The result may be falsely elevated due tohemolysis or other interferents. Clinical correlation is recommended.Repeat testing may be considered. Potassium [Moles/Vol] 4.3 mmol/L 3.5 - 5.3 [facility] Work Phone: Comment on above: MILD HEMOLYSIS DETEC DEYANIRA. The result may be falsely elevated due tohemolysis or other interferents. Clinical correlation is recommended.Repeat testing may be considered. Protein [Mass/Vol] 7.9 g/dL 6.4 - 8.2 MP-[facility] n [facility] Work Phone: Sodium [Moles/Vol] 134 mmol/L below low threshold 136 - 145 [facility] Work Phone: Sodium [Moles/Vol] 135 mmol/L below low threshold 136 - 145 [facility] Work Phone: Urea nitrogen [Mass/Vol] 17 mg/dL 6 - 23 [facility] Work Phone: Laboratory - Coagulationon 0 04-26-2023 aPTT Coag (PPP) [Time] 30 s 27 - 38 [facility] Work Phone: Comment on above: Note new reference r soheila as of 03/08/2023 at 10:00am. INR Coag (PPP) [Relative time] 1.2 {INR} above high threshold 0.9 - 1.1 [facility] Work Phone: PT Coag (PPP) [Time] 13.3 s above high threshold 9.8 - 12.8 -[facility] Work Phone: Comment on above: Note new reference r soheila as of 03/08/2023 at 10:00am. Laboratory - Drug toxicology on 04-26-2023 Amphetamines Screen Ql (U) Negative NEGATIVE -[facility] Work Phone: Comment on above: CUTOFF LEVEL: 500 NG /ML Cross-reactivity has been reported with high concentrations of the following drugs: buproprion, chloroquine, chlorpromazine, ephedrine, mephentermine, fenfluramine, phentermine, phenylpropanolamine, pseudoephedrine, and propranolol. Barbiturates Screen Ql (U) Negative NEGATIVE -[facility] Work Phone: Comment on above: CUTOFF LEVEL: 200 NG /ML Benzodiazepines Ql (U) Negative NEGATIVE -[facility] Work Phone: Comment on above: CUTOFF LEVEL: 200 NG /ML Benzoylecgonine Screen Ql (U) Negative NEGATIVE MP[facility] Work Phone: Comment on above: CUTOFF LEVEL: 150 NG /ML Cannabinoids Screen Ql (U) Positive Abnormal NEGATIVE [facility] Work Phone: Comment on above: CUTOFF LEVEL: 50 NG/ ML Methadone Screen Ql (U) Negative NEGATIVE [facility] Work Phone: Comment on above: CUTOFF LEVEL: 150 NG /ML The metabolite U-vkuyk-rctwmcfbzfdtwy (LAAM) is not detected by this method in concentrations that would be found in the urine of patients on LAAM therapy. Opiates Screen Ql (U) Positive Abnormal NEGATIVE MP- [facility] Work Phone: Comment on above: CUTOFF LEVEL: 300 NG /ML The opiate screen does not detect fentanyl, meperidine, or tramadol. Oxycodone is not consistently detected (refer to Oxycodone Screen, Urine result). oxyCODONE+oxyMORphone Screen Ql (U) Positive Abnormal NEGATIVE MP-[facility] Work Phone: Comment on above: CUTOFF LEVEL: 100 NG /ML This test will accurately detect both oxycodone and oxymorphone. Phencyclidine Ql (U) Negative NEGATIVE MP-P ain [facility] Work Phone: Comment on above: CUTOFF LEVEL: 25 NG/ ML Cross-reactivity has been reported with dextromethorphan. Lactate, Levelon 04-26-2023 Lactate [Moles/Vol] Canceled MP-Pa in [facility] Work Phone: Comment on above: Venipuncture immedia tely after or during the administration of Metamizole may lead to falsely low results. Testing should be performed immediately prior to Metamizole dosing. Lactate [Moles/Vol] 2.9 mmol/L above high threshold 0.4 - 2.0 MP-[facility] Work Phone: Comment on above: Venipuncture immedia tely after or during the administration of Metamizole may lead to falsely low results. Testing should be performed immediately prior to Metamizole dosing. Lipase, Serumon 04-26-2023 Lipase [Catalytic activity/Vol] 73 U/L 9 - 82 [facility] [employer] Phone: Comment on above: Venipuncture immedia tely after or during the administration of Metamizole may lead to falsely low results. Testing should be performed immediately prior to Metamizole dosing. L-mnvvbh-f-benzoquinone imine (metabolite of Acetaminophen) will generate erroneously low results in samples for patients that have taken toxic doses of acetaminophen. No Panel Informationon 04-26 74 {mmol/g_Creat} 38 - 318 [facility] [employer] Phone: 48 mmol/L See Below [facility] [employer] Phone: Comment on above: Reference Range: Not Established SEE BELOW [facility] [employer] Phone: Comment on above: Drug screen results are presumptive and should not be used to assess compliance with prescribed medication. Contact the performing [facility] laboratory to add-on definitive confirmatory testing [...] link to view the study images Normal [facility] [employer] Phone: [email or web address]=[email or web address] [email or web address]=[email or web address]&Output Type=PDF&Ext=PDF [facility] Work Phone: Please see ED Provid er Note for formal interpretation [facility] [place] Work Phone: Normal [facility] [place] Work Phone: [phone] [facility] [place] Work Phone: [phone] [facility] [place] Work Phone: [phone] [facility] [place] Work Phone: 142 1 [facility] Work Phone: 220 1 [facility] [place] Work Phone: 16 1 [facility] [place] Work Phone: 30 1 [facility] [place] Work Phone: 27 1 [facility] [place] Work Phone: 36 1 [facility] Work Phone: [phone] [facility] [place] Work Phone: [phone] 1 [facility] [place] Work Phone: 92 1 [facility] [place] Work Phone: 156 1 [facility] [place] Work Phone: 98 1 [facility] [place] Work Phone: >90 >90 [facility] [place] Work Phone: Comment on above: CALCULATIONS OF ESTUARDO MATED GFR ARE PERFORMED USING THE 2020 CKD-EPI STUDY REFIT EQUATION WITHOUT THE RACE VARIABLE FOR THE IDMS-TRACEABLE CREATININE METHODS.https://jasn.asnjournals.org/content// N.0297017236 URINALYSIS WITH CULTURE IF I NDICATEDon 04-26-2023 Color (U) YELLOW See Below MP-[facility] [place] Work Phone: Comment on above: Reference Range: STR AW,YELLOW Glucose Ql (U) Negative NEGATIVE MP-[facility] [place] [employer] Work Phone: Ketones Ql (U) Negative NEGATIVE MP-[facility] [place] Work Phone: Leukocyte esterase Test strip Ql (U) TRACE Abnormal NEGATIVE MP-[facility] [place] [employer] Work Phone: pH (U) 5.0 [pH] 5.0 - 8.0 MP-[facility] [place] [employer] Work Phone: Protein (U) [Mass/Vol] Negative NEGATIVE MP-[facility] [place] [employer] Work Phone: RBC (U) [#/Vol] Negative NEGATIVE MP-[facility] [place] Work Phone: Specific gravity (U) [Rel density] 1.018 1 See Below -[facility] [place] [employer] Work Phone: Comment on above: Reference Range: 1.0 05 - 1.035 URINALYSIS WITH CULTURE IF INDICATED Negative NEGATIVE MP-[facility] [place] [employer] Work Phone: Comment on above: CUTOFF LEVEL: 5 NG/M L URINALYSIS WITH CULTURE IF INDICATED <2.0 0.0 - 1.9 MP-[facility] [place] [employer] Work Phone: URINALYSIS WITH CULTURE IF INDICATED HAZY CLEAR MP-[facility] [place] [employer] Work Phone: Urinalysison 04-26-2023 Appearance (U) Canceled [facility] Work Phone: Color (U) Canceled [facility] Work Phone: Glucose Ql (U) Canceled [facility] Work Phone: Ketones Ql (U) Canceled [facility] Work Phone: Leukocyte esterase Test strip Ql (U) Canceled [facility] Work Phone: Protein (U) [Mass/Vol] Canceled [facility] Work Phone: RBC (U) [#/Vol] Canceled MP-[facility] Work Phone: Specific gravity (U) [Rel density] Canceled [facility] Work Phone: Urinalysis Canceled -[facility] Work Phone: Comment on above: Concentrations > = 2 0 mg/dL of ascorbic acid can be expected to cause strong interference in the reactions testing for glucose, nitrite and blood. It is recommended to discontinue Vitamin C administration and retest in 10 hours. Urinalysis, Microscopicon Hyaline casts LM Ql (Urine sed) 1+ Abnormal [facility] Work Phone: Urinalysis, Microscopic 1+ MP-[facility] Work Phone: Urinalysis, Microscopic <1 [facility] Work Phone: Urinalysis, Microscopic 17 {/HPF} MP-[facility] Work Phone: Urinalysis, Microscopic 1 {/HPF} 0-5 [facility] Work Phone: Urinalysis, Microscopic 9 {/HPF} Abnormal 0-5 MP-[facility] Work Phone: .Auto Diffon 04-25-2023 Basophil, Absolute 0.0 10 3/mcL Normal 0.0-0.2 [facility] ([place]) Comment on above: Performed By: #### U A, PREGU #### Sean [address] [place], [place] [address] Basophils/100 WBC (Bld) 0.4 % Normal 0.0-2.5 [facility] ([place]) Comment on above: Performed By: #### U A, PREGU #### Sean [address] [place], [place] [address] Eosinophil, Absolute 0.4 10 3/mcL Normal 0.0-0.4 [facility] ([place]) Comment on above: Performed By: #### U A, PREGU #### Sean [address] [place], [place] [address] Eosinophils/100 WBC (Bld) 2.9 % Normal 0.0-7.0 [facility] ([place]) Comment on above: Performed By: #### U A, PREGU #### Sean [address] [place], [place] [address] Lymphocyte, Absolute 3.5 10 3/mcL Normal 0.8-3.9 [facility] ([place]) Comment on above: Performed By: #### U A, PREGU #### Sean [address] [place], [place] [address] Lymphocytes/100 WBC (Bld) 25.5 % Normal 10.0-50.0 [facility] ([place]) Comment on above: Performed By: #### U A, PREGU #### Sean [address] [place], [place] [address] Monocyte, Absolute 0.8 10 3/mcL Normal 0.2-1.0 [facility] ([place]) Comment on above: Performed By: #### U A, PREGU #### Sean [address] [place], [place] [address] Monocytes/100 WBC (Bld) 6.2 % Normal 1.7-13.0 [facility] ([place]) Comment on above: Performed By: #### U A, PREGU #### Sean [place] [address] [place], [place] [address] Neutrophils/100 WBC (Bld) 64.8 % Normal 37.0-80.0 [facility] ([place]) Comment on above: Performed By: #### U A, PREGU #### Sean [place] [address] [place], [place] [address] .GFRon 04-25-2023 GFR 79 ml/min/1.73sqm Normal [facility] ([place]) Comment on above: Result Comment: GFR Population [...] Performed By: #### U A, PREGU #### [facility] [place] [address] [place], [place] [address] GFR Non- 65 ml/min/1.73sqm Normal [facility] ([place]) Comment on above: Result Comment: GFR Population [...] By: #### U A, PREGU #### Seanoz [address] [place] [address] .MDWon 04-25-2023 Monocyte Distribution Width 20.55 High 0.00-20.00 [facility] ([place]) Comment on above: Result Comment: For adults in ED, MDW>20.0 may be associated with a higher risk of sepsis during the first 12hrs of hospital admission Performed By: #### U A, PREGU #### Sean [address] [place] [address] .Morphon 04-25-2023 Platelet Estimate Increased Normal [facility] ([place] Comment on above: Performed By: #### U A, PREGU #### Seanoz [address] [place] [address] .NEUABSon 04-25-2023 Neutrophil, Absolute 9.0 10 3/mcL High 2.9-6.2 [facility] ([place]) Comment on above: Performed By: #### U A, PREGU #### Se[place]z [address] [address] [place] [phone] .Urinalysis Microscopic (AO) on 04-25-2023 UA Bacteria Trace Abnormal [facility] ([place]) Comment on above: Performed By: #### U A, PREGU #### Se[address]z [address] [place], [place] [address] UA Hyal Cast 0-5 Abnormal [facility] ([place]) Comment on above: Performed By: #### U A, PREGU #### Sean [place] [address] [place], [place] [address] UA RBC 0-5 Abnormal None Seen [facility] ([place] Comment on above: Performed By: #### U A, PREGU #### Se[address]z [address] [place], [place] [address] UA Squam Epithelial 5-10 Abnormal None Seen [facility] ([place]) Comment on above: Performed By: #### U A, PREGU #### [facility] [address] [place], [place] [address] UA WBC 0-5 Abnormal None Seen [facility] ([place] Comment on above: Performed By: #### U A, PREGU #### [facility] [address] [place], [place] [address] CBCon 04-25-2023 Erythrocyte distribution width (RBC) [Ratio] 12.4 % Normal 11.5-14.5 [facility] ([place] Comment on above: Performed By: #### U A, PREGU #### Seanoz [address] [place], [place] [address] Hematocrit (Bld) [Volume fraction] 46.7 % Normal 37.0-47.0 [facility] ([place] Comment on above: Performed By: #### U A, PREGU #### [facility] [place] [address] [place], [place] [address] Hgb 15.5 G/dL Normal 12.0-16.0 [facility] ([place] Comment on above: Performed By: #### U A, PREGU #### Grayson [place] [address] [place], [place] [address] MCH (RBC) [Entitic mass] 30.6 pg Normal 27.0-31.2 [facility] ([place]) Comment on above: Performed By: #### U A, PREGU #### [facility] [place] [address] [place], [place] [address] MCHC 33.3 G/dL Normal 33.0-37.0 [facility] ([place] Comment on above: Performed By: #### U A, PREGU #### Grayson [place] [address] [place], [place] [address] MCV (RBC) [Entitic vol] 91.9 fL Normal 80.0-94.0 [facility] ([place] Comment on above: Performed By: #### U A, PREGU #### [facility] [place] [address] [place], [place] [address] Platelet 471 10 3/mcL High 130-400 [facility] ([place]) Comment on above: Performed By: #### U A, PREGU #### Sean [place] [address] [place], [place] [address] Platelet mean volume (Bld) [Entitic vol] 6.9 fL Low 7.4-10.4 [facility] ([place]) Comment on above: Performed By: #### U A, PREGU #### Sean [address] [place], [place] [address] RBC 5.08 10 6/mcL Normal 4.20-5.40 [facility] ([place]) Comment on above: Performed By: #### U A, PREGU #### Sean [address] [place], [place] [address] WBC 14.0 10 3/mcL High 4.6-10.8 [facility] ([place] Comment on above: Performed By: #### U A, PREGU #### Se[address]z [address] [place], [place] [address] CMPon 04-25-2023 Albumin Level 4.8 G/dL Normal 3.5-5.0 [facility] ([place] Comment on above: Performed By: #### U A, PREGU #### Sean [address] [place], [place] [address] Albumin/Globulin [Mass ratio] 1.2 {ratio} Normal 1.1-2.5 [facility] ([place]) Comment on above: Performed By: #### U A, PREGU #### Sean [address] [place], [place] [address] ALP [Catalytic activity/Vol] 98 U/L Normal 40-135 [facility] ([place] Comment on above: Performed By: #### U A, PREGU #### Sean [address] [place], [place] [address] ALT [Catalytic activity/Vol] 99 U/L High 14-59 [facility] ([place] Comment on above: Performed By: #### U A, PREGU #### Seanoz [address] [place], [place] [address] AST [Catalytic activity/Vol] 89 U/L High 10-40 [facility] ([place] Comment on above: Performed By: #### U A, PREGU #### Seanoz [address] [place], [place] [address] Bili Total 0.5 mg/dL Normal 0.2-1.0 [facility] ([place]) Comment on above: Result Comment: Use of this assay is not recommended for patients undergoing treatment with eltrombopag due to the potential for falsely elevated results. Performed By: #### U A, PREGU #### Seanoz Loaiz[address] [place], [place] [address] BUN/Creatinine Ratio 24 ratio Normal 7-27 [facility] ([place] Comment on above: Performed By: #### U A, PREGU #### [facility] [address] [place], [place] [address] Calcium [Mass/Vol] 9.9 mg/dL Normal 8.4-10.2 [facility] ([place]) Comment on above: Performed By: #### U A, PREGU #### Grayson [place] [address] [place], [place] [address] Chloride [Moles/Vol] 100 mmol/L Normal 98-107 [facility] ([place]) Comment on above: Performed By: #### U A, PREGU #### Grayson [place] [address] [place], [place] [address] CO2 [Moles/Vol] 23 mmol/L Normal 22-29 [facility] ([place]) Comment on above: Performed By: #### U A, PREGU #### Seanoz Loaiz[address] [place], [place] [address] Creatinine [Mass/Vol] 0.92 mg/dL Normal 0.55-1.02 [facility] ([place]) Comment on above: Performed By: #### U A, PREGU #### Sean [place] [address] [place], [place] [address] Electrolyte Balance 13.0 mEq/L Normal 4.0-15.0 [facility] [facility] ([place]) Comment on above: Performed By: #### U A, PREGU #### Sean [address] [place], [place] [address] Globulin 4.1 G/dL Normal [facility] ([place]) Comment on above: Performed By: #### U A, PREGU #### Sean [address] [place], [place] [address] Glucose [Mass/Vol] 150 mg/dL High 70-105 [facility] ([place]) Comment on above: Performed By: #### U A, PREGU #### Sean [address] [place], [place] [address] Potassium [Moles/Vol] 4.8 mmol/L Normal 3.5-5.1 [facility] ([place]) Comment on above: Performed By: #### U A, PREGU #### Sean Loaizan [address] [place], [place] [address] Sodium [Moles/Vol] 136 mmol/L Normal 136-145 [facility] ([place]) Comment on above: Performed By: #### U A, PREGU #### Sean [address] [place], [place] [address] Total Protein 8.9 G/dL High 6.4-8.2 [facility] ([place]) Comment on above: Performed By: #### U A, PREGU #### Sean [address] [place], [place] [address] Urea nitrogen [Mass/Vol] 22 mg/dL High 7-18 [facility] ([place]) Comment on above: Performed By: #### U A, PREGU #### Sean Davis[address] [place], [place] [address] CT ABD/PELVIS W/ IV CONTRAST ONLYon 04-25-2023 [...] Date: 04/25/2023 1:29:18 AM Ordering [facility] LABORATORYOrdered By: SYSTEM SYSTEM on 04-25-2023 Albumin [...] 04-25-2023 Lipase Level 46 U/L Normal 16-77 [facility] ([place]) Comment on above: Performed By: #### U A, PREGU #### Sean [address] [place], [place] [address] No Panel Informationon 04-25 Please click on the link to view the study images Normal [facility] Work Phone: UAon 04-25-2023 Color (U) Yellow Normal [facility] ([place]) Comment on above: Performed By: #### U A, PREGU #### Sean [address] [place], [place] [address] Glucose (U) [Mass/Vol] Negative Normal Negative [facility] ([place]) Comment on above: Performed By: #### U A, PREGU #### Sean [address] [place], [place] [address] Ketones Ql (U) Negative Normal Negative [facility] ([place]) Comment on above: Performed By: #### U A, PREGU #### Sean [address] [place], [place] [address] UA Appear Slightly Cloudy Abnormal Clear [facility] ([place]) Comment on above: Performed By: #### U A, PREGU #### Sean [address] [place], [place] [address] UA Blood Negative Normal Negative [facility] ([place]) Comment on above: Performed By: #### U A, PREGU #### Sean [address] [place], [place] [address] UA Leuk Est Negative Normal Negative [facility] ([place]) Comment on above: Performed By: #### U A, PREGU #### Sean [address] [place], [place] [address] UA Nitrite Negative Normal Negative [facility] ([place]) Comment on above: Performed By: #### U A, PREGU #### Sean [address] [place], [place] [address] UA pH 5.5 Normal 5.0 - 8.0 [facility] ([place]) Comment on above: Performed By: #### U A, PREGU #### Sean [address] [place], [place] [address] UA Protein Negative Normal Negative [facility] ([place] Comment on above: Performed By: #### U A, PREGU #### Sean Loaiz[address] [place], [place] [address] UA Spec Grav 1.020 Normal 1.015-1.025 [facility] ([place]) Comment on above: Performed By: #### U A, PREGU #### Sean [address] [place], [place] [address] UA Specimen Type Clean Catch Normal [facility] ([place]) Comment on above: Performed By: #### U A, PREGU #### Seanoz Reynolds [address] [place], [place] [address] UA Urobilinogen 0.2 E.U./dL Normal 0.2-1.0 [facility] ([place]) Comment on above: Performed By: #### U A, PREGU #### Sean Reynolds [address] [place] [address] Urobilinogen (U) [Mass/Vol] Negative Normal Negative [facility] ([place]) Comment on above: Performed By: #### U A, PREGU #### Sean [address] [place], [place] [address] HBCABon 04-05-2023 Hep B Core Ab Negative Normal Negative [facility] ([place] Comment on above: Result Comment: No e vidence of current or past infection with Hepatitis B virus. Should recent infection be suspected, repeat testing may be considered 3-4 weeks after this draw. Performed By: [facility] [employer] [address] [place] [address] Cnc Machine Programmer: Miguel Blanco III#: [id number] Performed By: #### C K #### Sean [address] [address] ANAon 04-04-2023 Nuclear Ab IF (S) [Titer] 40 {titer} Normal Neg 40 [facility] ([place]) Comment on above: Result Comment: FERNANDA Screen and Titer methodology is an immunofluorescent technique utilizing Hep2 Substrate. Performed By: #### C K #### [address] [address] MITOon 04-04-2023 Mitochondrial Ab Neg 20 Normal Neg 20 [facility] ([place]) Comment on above: Result Comment: Frank chondrial Ab Screen and Titer methodology is an immunofluorescent technique utilizing MSK Substrate. Performed By: #### C K #### [address] [address] SMUSCon 04-04-2023 Smooth Muscle Ab Neg 20 Normal Neg 20 [facility] ([place]) Comment on above: Result Comment: Smoo th Muscle Ab Screen and Titer methodology is an immunofluorescent technique utilizing MSK Substrate. Performed By: #### C K #### [address] [address] AATon 04-02-2023 Alpha 1 Antitrypsin 204 mg/dL High 78-200 [facility] ([place]) Comment on above: Result Comment: No te - New Reference Range in effect 20 Performed By: #### C K #### [address] [address] CERULon 04-02-2023 Ceruloplasmin 37.0 mg/dL Normal 22.0-58.0 [facility] ([place]) Comment on above: Performed By: #### C K #### [address] [address] HEPACon 04-02-2023 Hep A IgM Ab Non-Reactive Normal Non-Reactive [facility] ([place] Comment on above: Performed By: #### C K #### [address] [address] Hep A IgM Ab Int Normal [facility] ([place]) Comment on above: Result Comment: No s erological evidence of a current Hepatitis A infection. See Interp Performed By: #### C K #### [address] [address] Hep B Core IgM Ab Non-Reactive Normal Non-Reactive [facility] ([place] Comment on above: Performed By: #### C K #### [address] [address] Hep B Core IgM Ab Int Normal [facility] ([place] Comment on above: Result Comment: Samp les with a value < 0.80 Index are considered nonreactive (negative) for IgM antibodies to hepatitis B core antigen. See Interp Performed By: #### C K #### [address] [address] Hep B Surf Ag Non-Reactive Normal Non-Reactive [facility] ([place] Comment on above: Performed By: #### C K #### [address] [address] Hep C Ab Non-Reactive Normal Non-Reactive [facility] ([place]) Comment on above: Performed By: #### C K #### [address] [address] Hep C Ab Int Normal [facility] ([place]) Comment on above: Result Comment: Nonr eactive: Samples with a value < 0.80 are considered nonreactive (negative) for antibodies to HCV. A negative test result does not exclude the possibility of exposure to or infection with HCV. HCV antibodies may be undetectable in some stages of the infection and in some clinical conditions. See Interp Performed By: #### C K #### [address] [address] IMMUNon 04-02-2023 IgA [Mass/Vol] 153 mg/dL Normal 40-350 [facility] ([place]) Comment on above: Result Comment: No te - New Reference Range in effect 20 Performed By: #### C K #### [address] [address] IgG [Mass/Vol] 781 mg/dL Normal 650-1600 [facility] ([place]) Comment on above: Result Comment: No te - New Reference Range in effect 20 Performed By: #### C K #### [address] [address] IgM [Mass/Vol] 72 mg/dL Normal 50-300 [facility] ([place]) Comment on above: Result Comment: No te - New Reference Range in effect 20 Performed By: #### C K #### Sean [address] [place], [place] [address] LABORATORYOrdered By: SYSTEM SYSTEM on 04-02-2023 Alpha 1 antitrypsin [Mass/Vol] 204 mg/dL Invalid Interpretation Code 78 - 200 mg/dL AH ADM SS Ceruloplasmin [Mass/Vol] 37.0 mg/dL Invalid Interpretation Code 22.0 - 58.0 mg/dL AH ADM SS IgA [Mass/Vol] 153 mg/dL Invalid Interpretation Code 40 - 350 mg/dL AH ADM SS IgG [Mass/Vol] 781 mg/dL Invalid Interpretation Code 650 - 1600 mg/dL ADM SS IgM [Mass/Vol] 72 mg/dL Invalid [...] 04-02-2023 Lipase Level 71 U/L High 12-53 [facility] ([place]) Comment on above: Result Comment: No te - New Reference Range in effect 20 Performed By: #### U Abigail PREGU #### [facility] [place] [address] [place], [place] [address] .Auto Diffon 04-01-2023 Basophil, Absolute 0.1 10 3/mcL Normal 0.0-0.2 [facility] ([place]) Comment on above: Performed By: #### A DIFF, ANEU, CMP, MG, GFR, LD, CRP, CBC, ESR #### [address] [address] Basophils/100 WBC (Bld) 1.2 % Normal 0.0-2.5 [facility] ([place]) Comment on above: Performed By: #### A DIFF, ANEU, CMP, MG, GFR, LD, CRP, CBC, ESR #### [address] [address] Eosinophil, Absolute 0.3 10 3/mcL Normal 0.0-0.4 [facility] ([place]) Comment on above: Performed By: #### A DIFF, ANEU, CMP, MG, GFR, LD, CRP, CBC, ESR #### [address] [address] Eosinophils/100 WBC (Bld) 6.3 % Normal 0.0-7.0 [facility] ([place]) Comment on above: Performed By: #### A DIFF, ANEU, CMP, MG, GFR, LD, CRP, CBC, ESR #### [address] [address] Lymphocyte, Absolute 1.4 10 3/mcL Normal 0.8-3.9 [facility] ([place]) Comment on above: Performed By: #### A DIFF, ANEU, CMP, MG, GFR, LD, CRP, CBC, ESR #### [address] [address] Lymphocytes/100 WBC (Bld) 29.1 % Normal 10.0-50.0 [facility] ([place]) Comment on above: Performed By: #### A DIFF, ANEU, CMP, MG, GFR, LD, CRP, CBC, ESR #### [address] [address] Monocyte, Absolute 0.3 10 3/mcL Normal 0.2-1.0 [facility] ([place]) Comment on above: Performed By: #### A DIFF, ANEU, CMP, MG, GFR, LD, CRP, CBC, ESR #### [address] [address] Monocytes/100 WBC (Bld) 6.5 % Normal 1.7-13.0 [facility] ([place]) Comment on above: Performed By: #### A DIFF, ANEU, CMP, MG, GFR, LD, CRP, CBC, ESR #### [address] [address] Neutrophils/100 WBC (Bld) 56.9 % Normal 37.0-80.0 [facility] ([place]) Comment on above: Performed By: #### A DIFF, ANEU, CMP, MG, GFR, LD, CRP, CBC, ESR #### [address] [address] .GFRon 04-01-2023 GFR 116 ml/min/1.73sqm Normal [facility] ([place]) Comment on above: Result Comment: GFR Population [...] MG, GFR, LD, CRP, CBC, ESR #### [address] [address] GFR Non- 96 ml/min/1.73sqm Normal [facility] ([place]) Comment on above: Result Comment: GFR Population [...] MG, GFR, LD, CRP, CBC, ESR #### [address] [address] .NEUABSon 04-01-2023 Neutrophil, Absolute 2.7 10 3/mcL Low 2.9-6.2 [facility] ([place]) Comment on above: Performed By: #### A DIFF, ANEU, CMP, MG, GFR, LD, CRP, CBC, ESR #### [address] [address] CBCon 04-01-2023 Erythrocyte distribution width (RBC) [Ratio] 13.7 % Normal 11.5-14.5 [facility] ([place]) Comment on above: Performed By: #### A DIFF, ANEU, CMP, MG, GFR, LD, CRP, CBC, ESR #### [address] [address] Hematocrit (Bld) [Volume fraction] 32.8 % Low 37.0-47.0 [facility] ([place]) Comment on above: Performed By: #### A DIFF, ANEU, CMP, MG, GFR, LD, CRP, CBC, ESR #### [address] [address] Hgb 11.1 G/dL Low 12.0-16.0 [facility] ([place]) Comment on above: Performed By: #### A DIFF, ANEU, CMP, MG, GFR, LD, CRP, CBC, ESR #### [address] [address] MCH (RBC) [Entitic mass] 31.6 pg High 27.0-31.2 [facility] ([place]) Comment on above: Performed By: #### A DIFF, ANEU, CMP, MG, GFR, LD, CRP, CBC, ESR #### [address] [address] MCHC 33.7 G/dL Normal 33.0-37.0 [facility] ([place]) Comment on above: Performed By: #### A DIFF, ANEU, CMP, MG, GFR, LD, CRP, CBC, ESR #### [address] [address] MCV (RBC) [Entitic vol] 93.7 fL Normal 80.0-94.0 [facility] ([place]) Comment on above: Performed By: #### A DIFF, ANEU, CMP, MG, GFR, LD, CRP, CBC, ESR #### [address] [address] Platelet 265 10 3/mcL Normal 130-400 [facility] ([place]) Comment on above: Performed By: #### A DIFF, ANEU, CMP, MG, GFR, LD, CRP, CBC, ESR #### [address] [address] Platelet mean volume (Bld) [Entitic vol] 7.4 fL Normal 7.4-10.4 [facility] ([place]) Comment on above: Performed By: #### A DIFF, ANEU, CMP, MG, GFR, LD, CRP, CBC, ESR #### [address] [address] RBC 3.50 10 6/mcL Low 4.20-5.40 [facility] ([place] Comment on above: Performed By: #### A DIFF, ANEU, CMP, MG, GFR, LD, CRP, CBC, ESR #### [address] [address] WBC 4.7 10 3/mcL Normal 4.6-10.8 [facility] ([place]) Comment on above: Performed By: #### A DIFF, ANEU, CMP, MG, GFR, LD, CRP, CBC, ESR #### [address] [address] CMPon 04-01-2023 Albumin Level 3.2 G/dL Low 3.5-5.0 [facility] ([place] Comment on above: Performed By: #### A DIFF, ANEU, CMP, MG, GFR, LD, CRP, CBC, ESR #### [address] [address] Albumin/Globulin [Mass ratio] 1.2 {ratio} Normal 1.1-2.5 [facility] ([place]) Comment on above: Performed By: #### A DIFF, ANEU, CMP, MG, GFR, LD, CRP, CBC, ESR #### [address] [address] ALP [Catalytic activity/Vol] 111 U/L Normal 40-135 [facility] ([place]) Comment on above: Performed By: #### A DIFF, ANEU, CMP, MG, GFR, LD, CRP, CBC, ESR #### [address] [address] ALT [Catalytic activity/Vol] 273 U/L High 14-59 [facility] ([place]) Comment on above: Performed By: #### A DIFF, ANEU, CMP, MG, GFR, LD, CRP, CBC, ESR #### [address] [address] AST [Catalytic activity/Vol] 118 U/L High 10-40 [facility] ([place]) Comment on above: Performed By: #### A DIFF, ANEU, CMP, MG, GFR, LD, CRP, CBC, ESR #### [address] [address] Bili Total 0.5 mg/dL Normal 0.2-1.0 [facility] ([place]) Comment on above: Result Comment: Use of this assay is not recommended for patients undergoing treatment with eltrombopag due to the potential for falsely elevated results. Performed By: #### A DIFF, ANEU, CMP, MG, GFR, LD, CRP, CBC, ESR #### [address] [address] BUN/Creatinine Ratio 3 ratio Low 7-27 [facility] ([place] Comment on above: Performed By: #### A DIFF, ANEU, CMP, MG, GFR, LD, CRP, CBC, ESR #### [address] [address] Calcium [Mass/Vol] 8.6 mg/dL Normal 8.4-10.2 [facility] ([place]) Comment on above: Performed By: #### A DIFF, ANEU, CMP, MG, GFR, LD, CRP, CBC, ESR #### [address] [address] Chloride [Moles/Vol] 107 mmol/L Normal 98-107 [facility] ([place] Comment on above: Performed By: #### A DIFF, ANEU, CMP, MG, GFR, LD, CRP, CBC, ESR #### [address] [address] CO2 [Moles/Vol] 24 mmol/L Normal 22-29 [facility] ([place]) Comment on above: Performed By: #### A DIFF, ANEU, CMP, MG, GFR, LD, CRP, CBC, ESR #### [address] [address] Creatinine [Mass/Vol] 0.66 mg/dL Normal 0.55-1.02 [facility] ([place]) Comment on above: Performed By: #### A DIFF, ANEU, CMP, MG, GFR, LD, CRP, CBC, ESR #### [address] [address] Electrolyte Balance 12.0 mEq/L Normal 4.0-15.0 [facility] ([place] Comment on above: Performed By: #### A DIFF, ANEU, CMP, MG, GFR, LD, CRP, CBC, ESR #### [address] [address] Globulin 2.6 G/dL Normal [facility] ([place]) Comment on above: Performed By: #### A DIFF, ANEU, CMP, MG, GFR, LD, CRP, CBC, ESR #### [address] [address] Glucose [Mass/Vol] 122 mg/dL High 70-105 [facility] ([place] Comment on above: Performed By: #### A DIFF, ANEU, CMP, MG, GFR, LD, CRP, CBC, ESR #### [address] [address] Potassium [Moles/Vol] 3.5 mmol/L Normal 3.5-5.1 [facility]) Comment on above: Performed By: #### A DIFF, ANEU, CMP, MG, GFR, LD, CRP, CBC, ESR #### [address] [address] Sodium [Moles/Vol] 143 mmol/L Normal 136-145 [facility] ([place] Comment on above: Performed By: #### A DIFF, ANEU, CMP, MG, GFR, LD, CRP, CBC, ESR #### [address] [address] Total Protein 5.8 G/dL Low 6.4-8.2 [facility] ([place] Comment on above: Performed By: #### A DIFF, ANEU, CMP, MG, GFR, LD, CRP, CBC, ESR #### [address] [address] Urea nitrogen [Mass/Vol] 2 mg/dL Low 7-18 [facility] ([place]) Comment on above: Performed By: #### A DIFF, ANEU, CMP, MG, GFR, LD, CRP, CBC, ESR #### [address] [address] MGon 04-01-2023 Magnesium [Mass/Vol] 1.9 mg/dL Normal 1.8-2.4 [facility] ([place] Comment on above: Performed By: #### A DIFF, ANEU, CMP, MG, GFR, LD, CRP, CBC, ESR #### [address] [address] .Auto Diffon 03-31-2023 Basophil, Absolute 0.0 10 3/mcL Normal 0.0-0.2 [facility] ([place] Comment on above: Performed By: #### A DIFF, ANEU, CMP, MG, GFR, LD, CRP, CBC, ESR #### [address] [address] Basophils/100 WBC (Bld) 1.0 % Normal 0.0-2.5 [facility] ([place]) Comment on above: Performed By: #### A DIFF, ANEU, CMP, MG, GFR, LD, CRP, CBC, ESR #### [address] [address] Eosinophil, Absolute 0.2 10 3/mcL Normal 0.0-0.4 [facility] ([place]) Comment on above: Performed By: #### A DIFF, ANEU, CMP, MG, GFR, LD, CRP, CBC, ESR #### [address] [address] Eosinophils/100 WBC (Bld) 7.0 % Normal 0.0-7.0 [facility] ([place]) Comment on above: Performed By: #### A DIFF, ANEU, CMP, MG, GFR, LD, CRP, CBC, ESR #### [address] [address] Lymphocyte, Absolute 1.5 10 3/mcL Normal 0.8-3.9 [facility] ([place]) Comment on above: Performed By: #### A DIFF, ANEU, CMP, MG, GFR, LD, CRP, CBC, ESR #### [address] [address] Lymphocytes/100 WBC (Bld) 42.0 % Normal 10.0-50.0 [facility] ([place]) Comment on above: Performed By: #### A DIFF, ANEU, CMP, MG, GFR, LD, CRP, CBC, ESR #### [address] [address] Monocyte, Absolute 0.3 10 3/mcL Normal 0.2-1.0 [facility] ([place] Comment on above: Performed By: #### A DIFF, ANEU, CMP, MG, GFR, LD, CRP, CBC, ESR #### [address] [address] Monocytes/100 WBC (Bld) 7.7 % Normal 1.7-13.0 [facility] ([place]) Comment on above: Performed By: #### A DIFF, ANEU, CMP, MG, GFR, LD, CRP, CBC, ESR #### [address] [address] Neutrophils/100 WBC (Bld) 42.3 % Normal 37.0-80.0 [facility] ([place]) Comment on above: Performed By: #### A DIFF, ANEU, CMP, MG, GFR, LD, CRP, CBC, ESR #### [address] [address] .GFRon 03-31-2023 GFR Non- 92 ml/min/1.73sqm Normal [facility] ([place] Comment on above: Result Comment: GFR Population [...] MG, GFR, LD, CRP, CBC, ESR #### [address] [address] GFR 112 ml/min/1.73sqm Normal [facility] ([place]) Comment on above: Result Comment: GFR Population [...] MG, GFR, LD, CRP, CBC, ESR #### [address] [address] .NEUABSon 03-31-2023 Neutrophil, Absolute 1.5 10 3/mcL Low 2.9-6.2 [facility] ([place]) Comment on above: Performed By: #### A DIFF, ANEU, CMP, MG, GFR, LD, CRP, CBC, ESR #### [address] [address] CBCon 03-31-2023 Erythrocyte distribution width (RBC) [Ratio] 13.8 % Normal 11.5-14.5 [facility] ([place]) Comment on above: Performed By: #### A DIFF, ANEU, CMP, MG, GFR, LD, CRP, CBC, ESR #### [address] [address] Hematocrit (Bld) [Volume fraction] 33.2 % Low 37.0-47.0 [facility] ([place]) Comment on above: Performed By: #### A DIFF, ANEU, CMP, MG, GFR, LD, CRP, CBC, ESR #### [address] [address] Hgb 11.1 G/dL Low 12.0-16.0 [facility] ([place]) Comment on above: Performed By: #### A DIFF, ANEU, CMP, MG, GFR, LD, CRP, CBC, ESR #### [address] [address] MCH (RBC) [Entitic mass] 31.6 pg High 27.0-31.2 [facility] ([place]) Comment on above: Performed By: #### A DIFF, ANEU, CMP, MG, GFR, LD, CRP, CBC, ESR #### [address] [address] MCHC 33.5 G/dL Normal 33.0-37.0 [facility] ([place]) Comment on above: Performed By: #### A DIFF, ANEU, CMP, MG, GFR, LD, CRP, CBC, ESR #### [address] [address] MCV (RBC) [Entitic vol] 94.3 fL High 80.0-94.0 [facility] ([place] Comment on above: Performed By: #### A DIFF, ANEU, CMP, MG, GFR, LD, CRP, CBC, ESR #### [address] [address] Platelet 268 10 3/mcL Normal 130-400 [facility] ([place] Comment on above: Performed By: #### A DIFF, ANEU, CMP, MG, GFR, LD, CRP, CBC, ESR #### [address] [address] Platelet mean volume (Bld) [Entitic vol] 6.6 fL Low 7.4-10.4 [facility] ([place]) Comment on above: Performed By: #### A DIFF, ANEU, CMP, MG, GFR, LD, CRP, CBC, ESR #### [address] [address] RBC 3.52 10 6/mcL Low 4.20-5.40 [facility] ([place] Comment on above: Performed By: #### A DIFF, ANEU, CMP, MG, GFR, LD, CRP, CBC, ESR #### [address] [address] WBC 3.5 10 3/mcL Low 4.6-10.8 [facility] ([place]) Comment on above: Performed By: #### A DIFF, ANEU, CMP, MG, GFR, LD, CRP, CBC, ESR #### [address] [address] CMPon 03-31-2023 Albumin Level 3.1 G/dL Low 3.5-5.0 [facility] ([place] Comment on above: Performed By: #### A DIFF, ANEU, CMP, MG, GFR, LD, CRP, CBC, ESR #### [address] [address] Albumin/Globulin [Mass ratio] 1.2 {ratio} Normal 1.1-2.5 [facility] ([place] Comment on above: Performed By: #### A DIFF, ANEU, CMP, MG, GFR, LD, CRP, CBC, ESR #### [address] [address] ALP [Catalytic activity/Vol] 112 U/L Normal 40-135 [facility] ([place] Comment on above: Performed By: #### A DIFF, ANEU, CMP, MG, GFR, LD, CRP, CBC, ESR #### [address] [address] ALT [Catalytic activity/Vol] 337 U/L High 14-59 [facility] ([place] Comment on above: Performed By: #### A DIFF, ANEU, CMP, MG, GFR, LD, CRP, CBC, ESR #### [address] [address] AST [Catalytic activity/Vol] 244 U/L High 10-40 [facility] ([place] Comment on above: Performed By: #### A DIFF, ANEU, CMP, MG, GFR, LD, CRP, CBC, ESR #### [address] [address] Bili Total 0.6 mg/dL Normal 0.2-1.0 [facility] ([place] Comment on above: Result Comment: Use of this assay is not recommended for patients undergoing treatment with eltrombopag due to the potential for falsely elevated results. Performed By: #### A DIFF, ANEU, CMP, MG, GFR, LD, CRP, CBC, ESR #### [address] [address] BUN/Creatinine Ratio 4 ratio Low 7-27 [facility] ([place] Comment on above: Performed By: #### A DIFF, ANEU, CMP, MG, GFR, LD, CRP, CBC, ESR #### [address] [address] Calcium [Mass/Vol] 8.6 mg/dL Normal 8.4-10.2 [facility] ([place] Comment on above: Performed By: #### A DIFF, ANEU, CMP, MG, GFR, LD, CRP, CBC, ESR #### [address] [address] Chloride [Moles/Vol] 107 mmol/L Normal 98-107 [facility] ([place] Comment on above: Performed By: #### A DIFF, ANEU, CMP, MG, GFR, LD, CRP, CBC, ESR #### [address] [address] CO2 [Moles/Vol] 24 mmol/L Normal 22-29 [facility] ([place] Comment on above: Performed By: #### A DIFF, ANEU, CMP, MG, GFR, LD, CRP, CBC, ESR #### [address] [address] Creatinine [Mass/Vol] 0.68 mg/dL Normal 0.55-1.02 [facility] ([place] Comment on above: Performed By: #### A DIFF, ANEU, CMP, MG, GFR, LD, CRP, CBC, ESR #### [address] [address] Electrolyte Balance 11.0 mEq/L Normal 4.0-15.0 [facility] ([place] Comment on above: Performed By: #### A DIFF, ANEU, CMP, MG, GFR, LD, CRP, CBC, ESR #### [address] [address] Globulin 2.5 G/dL Normal [facility] ([place] Comment on above: Performed By: #### A DIFF, ANEU, CMP, MG, GFR, LD, CRP, CBC, ESR #### [address] [address] Glucose [Mass/Vol] 110 mg/dL High 70-105 [facility] ([place] Comment on above: Performed By: #### A DIFF, ANEU, CMP, MG, GFR, LD, CRP, CBC, ESR #### [address] [address] Potassium [Moles/Vol] 3.8 mmol/L Normal 3.5-5.1 [facility] ([place] Comment on above: Performed By: #### A DIFF, ANEU, CMP, MG, GFR, LD, CRP, CBC, ESR #### [address] [address] Sodium [Moles/Vol] 142 mmol/L Normal 136-145 [facility] ([place] Comment on above: Performed By: #### A DIFF, ANEU, CMP, MG, GFR, LD, CRP, CBC, ESR #### [address] [address] Total Protein 5.6 G/dL Low 6.4-8.2 [facility] ([place] Comment on above: Performed By: #### A DIFF, ANEU, CMP, MG, GFR, LD, CRP, CBC, ESR #### [address] [address] Urea nitrogen [Mass/Vol] 3 mg/dL Low 7-18 [facility] ([place] Comment on above: Performed By: #### A DIFF, ANEU, CMP, MG, GFR, LD, CRP, CBC, ESR #### [address] [address] MGon 03-31-2023 Magnesium [Mass/Vol] 1.9 mg/dL Normal 1.8-2.4 [facility] ([place] Comment on above: Performed By: #### A DIFF, ANEU, CMP, MG, GFR, LD, CRP, CBC, ESR #### [address] [address] .Auto Diffon 03-30-2023 Basophil, Absolute 0.1 10 3/mcL Normal 0.0-0.2 [facility] ([place]) Comment on above: Performed By: #### A DIFF, ANEU, CMP, MG, GFR, LD, CRP, CBC, ESR #### [address] [address] Basophils/100 WBC (Bld) 1.5 % Normal 0.0-2.5 [facility] ([place]) Comment on above: Performed By: #### A DIFF, ANEU, CMP, MG, GFR, LD, CRP, CBC, ESR #### [address] [address] Eosinophil, Absolute 0.2 10 3/mcL Normal 0.0-0.4 [facility] ([place]) Comment on above: Performed By: #### A DIFF, ANEU, CMP, MG, GFR, LD, CRP, CBC, ESR #### [address] [address] Eosinophils/100 WBC (Bld) 5.4 % Normal 0.0-7.0 [facility] ([place]) Comment on above: Performed By: #### A DIFF, ANEU, CMP, MG, GFR, LD, CRP, CBC, ESR #### [address] [address] Lymphocyte, Absolute 1.4 10 3/mcL Normal 0.8-3.9 [facility] ([place]) Comment on above: Performed By: #### A DIFF, ANEU, CMP, MG, GFR, LD, CRP, CBC, ESR #### [address] [address] Lymphocytes/100 WBC (Bld) 35.7 % Normal 10.0-50.0 [facility] ([place]) Comment on above: Performed By: #### A DIFF, ANEU, CMP, MG, GFR, LD, CRP, CBC, ESR #### [address] [address] Monocyte, Absolute 0.4 10 3/mcL Normal 0.2-1.0 [facility] ([place]) Comment on above: Performed By: #### A DIFF, ANEU, CMP, MG, GFR, LD, CRP, CBC, ESR #### [address] [address] Monocytes/100 WBC (Bld) 9.5 % Normal 1.7-13.0 [facility] ([place]) Comment on above: Performed By: #### A DIFF, ANEU, CMP, MG, GFR, LD, CRP, CBC, ESR #### [address] [address] Neutrophils/100 WBC (Bld) 47.9 % Normal 37.0-80.0 [facility] ([place]) Comment on above: Performed By: #### A DIFF, ANEU, CMP, MG, GFR, LD, CRP, CBC, ESR #### [address] [address] .GFRon 03-30-2023 GFR 106 ml/min/1.73sqm Normal [facility] ([place]) Comment on above: Result Comment: GFR Population [...] MG, GFR, LD, CRP, CBC, ESR #### [address] [address] GFR Non- 88 ml/min/1.73sqm Normal [facility] ([place]) Comment on above: Result Comment: GFR Population [...] MG, GFR, LD, CRP, CBC, ESR #### [address] [address] .NEUABSon 03-30-2023 Neutrophil, Absolute 1.9 10 3/mcL Low 2.9-6.2 [facility] ([place]) Comment on above: Performed By: #### A DIFF, ANEU, CMP, MG, GFR, LD, CRP, CBC, ESR #### [address] [address] A1Con 03-30-2023 HbA1c (Bld) [Mass fraction] 5.9 % Normal 4.3-6.4 [facility] ([place]) Comment on above: Performed By: #### A DIFF, ANEU, CMP, MG, GFR, LD, CRP, CBC, ESR #### [address] [address] CBCon 03-30-2023 Erythrocyte distribution width (RBC) [Ratio] 13.5 % Normal 11.5-14.5 [facility] ([place]) Comment on above: Performed By: #### A DIFF, ANEU, CMP, MG, GFR, LD, CRP, CBC, ESR #### [address] [address] Hematocrit (Bld) [Volume fraction] 34.7 % Low 37.0-47.0 [facility] ([place]) Comment on above: Performed By: #### A DIFF, ANEU, CMP, MG, GFR, LD, CRP, CBC, ESR #### [place] [id number] Hgb 11.6 G/dL Low 12.0-16.0 [facility] ([place]) Comment on above: Performed By: #### A DIFF, ANEU, CMP, MG, GFR, LD, CRP, CBC, ESR #### [place] [id number] MCH (RBC) [Entitic mass] 31.3 pg High 27.0-31.2 [facility] ([place]) Comment on above: Performed By: #### A DIFF, ANEU, CMP, MG, GFR, LD, CRP, CBC, ESR #### [place] [address] MCHC 33.3 G/dL Normal 33.0-37.0 [facility] ([place]) Comment on above: Performed By: #### A DIFF, ANEU, CMP, MG, GFR, LD, CRP, CBC, ESR #### [place] [address] MCV (RBC) [Entitic vol] 94.0 fL Normal 80.0-94.0 [facility] ([place]) Comment on above: Performed By: #### A DIFF, ANEU, CMP, MG, GFR, LD, CRP, CBC, ESR #### [place] [id number] Platelet 281 10 3/mcL Normal 130-400 [facility] ([place]) Comment on above: Performed By: #### A DIFF, ANEU, CMP, MG, GFR, LD, CRP, CBC, ESR #### [place] [id number] Platelet mean volume (Bld) [Entitic vol] 6.7 fL Low 7.4-10.4 [facility] ([place]) Comment on above: Performed By: #### A DIFF, ANEU, CMP, MG, GFR, LD, CRP, CBC, ESR #### [place] [id number] RBC 3.69 10 6/mcL Low 4.20-5.40 [facility] ([place]) Comment on above: Performed By: #### A DIFF, ANEU, CMP, MG, GFR, LD, CRP, CBC, ESR #### [address] [address] WBC 4.0 10 3/mcL Low 4.6-10.8 [facility] ([place]) Comment on above: Performed By: #### A DIFF, ANEU, CMP, MG, GFR, LD, CRP, CBC, ESR #### [address] [address] CMPon 03-30-2023 Albumin Level 3.3 G/dL Low 3.5-5.0 [facility] ([place]) Comment on above: Performed By: #### A DIFF, ANEU, CMP, MG, GFR, LD, CRP, CBC, ESR #### [address] [address] Albumin/Globulin [Mass ratio] 1.3 {ratio} Normal 1.1-2.5 [facility] ([place]) Comment on above: Performed By: #### A DIFF, ANEU, CMP, MG, GFR, LD, CRP, CBC, ESR #### [address] [address] ALP [Catalytic activity/Vol] 100 U/L Normal 40-135 [facility] ([place]) Comment on above: Performed By: #### A DIFF, ANEU, CMP, MG, GFR, LD, CRP, CBC, ESR #### [address] [address] ALT [Catalytic activity/Vol] 270 U/L High 14-59 [facility] ([place]) Comment on above: Performed By: #### A DIFF, ANEU, CMP, MG, GFR, LD, CRP, CBC, ESR #### [address] [address] AST [Catalytic activity/Vol] 249 U/L High 10-40 [facility] ([place]) Comment on above: Performed By: #### A DIFF, ANEU, CMP, MG, GFR, LD, CRP, CBC, ESR #### [address] [address] Bili Total 0.5 mg/dL Normal 0.2-1.0 [facility] ([place]) Comment on above: Result Comment: Use of this assay is not recommended for patients undergoing treatment with eltrombopag due to the potential for falsely elevated results. Performed By: #### A DIFF, ANEU, CMP, MG, GFR, LD, CRP, CBC, ESR #### [address] [address] BUN/Creatinine Ratio 8 ratio Normal 7-27 [facility] ([place]) Comment on above: Performed By: #### A DIFF, ANEU, CMP, MG, GFR, LD, CRP, CBC, ESR #### [address] [address] Calcium [Mass/Vol] 9.1 mg/dL Normal 8.4-10.2 [facility] ([place]) Comment on above: Performed By: #### A DIFF, ANEU, CMP, MG, GFR, LD, CRP, CBC, ESR #### [address] [address] Chloride [Moles/Vol] 105 mmol/L Normal 98-107 [facility] ([place]) Comment on above: Performed By: #### A DIFF, ANEU, CMP, MG, GFR, LD, CRP, CBC, ESR #### [address] [address] CO2 [Moles/Vol] 28 mmol/L Normal 22-29 [facility] ([place]) Comment on above: Performed By: #### A DIFF, ANEU, CMP, MG, GFR, LD, CRP, CBC, ESR #### [address] [address] Creatinine [Mass/Vol] 0.71 mg/dL Normal 0.55-1.02 [facility] ([place]) Comment on above: Performed By: #### A DIFF, ANEU, CMP, MG, GFR, LD, CRP, CBC, ESR #### [address] [address] Electrolyte Balance 9.0 mEq/L Normal 4.0-15.0 [facility] ([place]) Comment on above: Performed By: #### A DIFF, ANEU, CMP, MG, GFR, LD, CRP, CBC, ESR #### [address] [address] Globulin 2.6 G/dL Normal [facility] ([place]) Comment on above: Performed By: #### A DIFF, ANEU, CMP, MG, GFR, LD, CRP, CBC, ESR #### [address] [address] Glucose [Mass/Vol] 110 mg/dL High 70-105 [facility] ([place]) Comment on above: Performed By: #### A DIFF, ANEU, CMP, MG, GFR, LD, CRP, CBC, ESR #### [address] [address] Potassium [Moles/Vol] 4.0 mmol/L Normal 3.5-5.1 [facility] ([place]) Comment on above: Performed By: #### A DIFF, ANEU, CMP, MG, GFR, LD, CRP, CBC, ESR #### [address] [address] Sodium [Moles/Vol] 142 mmol/L Normal 136-145 [facility] ([place]) Comment on above: Performed By: #### A DIFF, ANEU, CMP, MG, GFR, LD, CRP, CBC, ESR #### [address] [address] Total Protein 5.9 G/dL Low 6.4-8.2 [facility] ([place]) Comment on above: Performed By: #### A DIFF, ANEU, CMP, MG, GFR, LD, CRP, CBC, ESR #### [address] [address] Urea nitrogen [Mass/Vol] 6 mg/dL Low 7-18 [facility] ([place]) Comment on above: Performed By: #### A DIFF, ANEU, CMP, MG, GFR, LD, CRP, CBC, ESR #### [place] [id number] Delores 03-30-2023 Ferritin [Mass/Vol] 69.0 ng/mL Normal 8.0-252.0 [facility] ([place]) Comment on above: Performed By: #### A DIFF, ANEU, CMP, MG, GFR, LD, CRP, CBC, ESR #### [place] [address] FESon 03-30-2023 Iron [Mass/Vol] 106 ug/dL Normal 50-170 [facility] ([place]) Comment on above: Performed By: #### A DIFF, ANEU, CMP, MG, GFR, LD, CRP, CBC, ESR #### [place] [address] Iron Sat 28 % Normal [facility] ([place]) Comment on above: Performed By: #### A DIFF, ANEU, CMP, MG, GFR, LD, CRP, CBC, ESR #### [place] [address] TIBC 372 mcg/dL Normal 250-450 [facility] ([place]) Comment on above: Performed By: #### A DIFF, ANEU, CMP, MG, GFR, LD, CRP, CBC, ESR #### [place] [address] LIPIDon 03-30-2023 Cholesterol [Mass/Vol] 188 mg/dL Normal 0-200 [facility] ([place]) Comment on above: Result Comment: Chol esterol Reference Interval: Less than 200 Desirable 200-239 Borderline high risk 240 and above High risk Performed By: #### A DIFF, ANEU, CMP, MG, GFR, LD, CRP, CBC, ESR #### [place] [address] Cholesterol in HDL [Mass/Vol] 29 mg/dL Low 40-60 [facility] ([place]) Comment on above: Performed By: #### A DIFF, ANEU, CMP, MG, GFR, LD, CRP, CBC, ESR #### [address] [address] Cholesterol in LDL [Mass/Vol] 131 mg/dL High 0-130 [facility] ([place]) Comment on above: Performed By: #### A DIFF, ANEU, CMP, MG, GFR, LD, CRP, CBC, ESR #### Sean [address] [address] Triglyceride [Mass/Vol] 139 mg/dL Normal 0-150 [facility] ([place]) Comment on above: Result Comment: Trig lyceride Reference Interval: Less than 150 Normal 150-199 Borderline high risk 200-499 High risk 500 or higher Very high risk Performed By: #### A DIFF, ANEU, CMP, MG, GFR, LD, CRP, CBC, ESR #### Sean [address] [address] MGon 03-30-2023 Magnesium [Mass/Vol] 1.9 mg/dL Normal 1.8-2.4 [facility] ([place]) Comment on above: Performed By: #### A DIFF, ANEU, CMP, MG, GFR, LD, CRP, CBC, ESR #### [address] [address] TOXSCon 03-30-2023 U Ampheta (AO) Negative Normal [facility] ([place]) Comment on above: Performed By: #### U A, PREGU #### Sean [address] [place], [place] [address] U Angy (AO) Negative Normal [facility] ([place]) Comment on above: Performed By: #### U A, PREGU #### Sean [address] [place], [place] [address] U Narinder (AO) Negative Normal [facility] ([place]) Comment on above: Performed By: #### U A, PREGU #### Sean [address] [place], [place] [address] U Cannab (AO) Negative Normal [facility] ([place]) Comment on above: Performed By: #### U A, PREGU #### Sean [address] [place], [place] [address] U Cocaine (AO) Negative Normal [facility] ([place]) Comment on above: Performed By: #### U A, PREGU #### Sean [address] [place], [place] [address] U Methadone (AO) Negative Normal [facility] ([place]) Comment on above: Performed By: #### U A, PREGU #### Sean [address] [place], [place] [address] U PCP (AO) Negative Normal [facility] ([place]) Comment on above: Performed By: #### U A, PREGU #### Sean [address] [place], [place] [address] U TCA (AO) Negative Normal [facility] ([place]) Comment on above: Performed By: #### U A, PREGU #### Sean [address] [place], [place] [address] Urine Opiates (AO) Positive Normal [facility] ([place]) Comment on above: Performed By: #### U A, PREGU #### Sean [address] [place], [place] [address] US ABDOMEN LIMITEDon 023 US ABDOMEN LIMITED [...] Date: 03/30/2023 12:55:18 PM Ordering Provider: SNOW Luis [facility] ([place]) .Auto Diffon 03-29-2023 Basophil, Absolute 0.0 10 3/mcL Normal 0.0-0.2 [facility] ([place]) Comment on above: Performed By: #### A DIFF, ANEU, CMP, MG, GFR, LD, CRP, CBC, ESR #### [address] [address] Basophils/100 WBC (Bld) 0.7 % Normal 0.0-2.5 [facility] ([place]) Comment on above: Performed By: #### A DIFF, ANEU, CMP, MG, GFR, LD, CRP, CBC, ESR #### [address] [address] Eosinophil, Absolute 0.3 10 3/mcL Normal 0.0-0.4 [facility] ([place]) Comment on above: Performed By: #### A DIFF, ANEU, CMP, MG, GFR, LD, CRP, CBC, ESR #### [address] [address] Eosinophils/100 WBC (Bld) 4.0 % Normal 0.0-7.0 [facility] ([place]) Comment on above: Performed By: #### A DIFF, ANEU, CMP, MG, GFR, LD, CRP, CBC, ESR #### [address] [address] Lymphocyte, Absolute 2.2 10 3/mcL Normal 0.8-3.9 [facility] ([place]) Comment on above: Performed By: #### A DIFF, ANEU, CMP, MG, GFR, LD, CRP, CBC, ESR #### [address] [address] Lymphocytes/100 WBC (Bld) 32.5 % Normal 10.0-50.0 [facility] ([place]) Comment on above: Performed By: #### A DIFF, ANEU, CMP, MG, GFR, LD, CRP, CBC, ESR #### [address] [address] Monocyte, Absolute 0.5 10 3/mcL Normal 0.2-1.0 [facility] ([place]) Comment on above: Performed By: #### A DIFF, ANEU, CMP, MG, GFR, LD, CRP, CBC, ESR #### [address] [address] Monocytes/100 WBC (Bld) 7.0 % Normal 1.7-13.0 [facility] ([place]) Comment on above: Performed By: #### A DIFF, ANEU, CMP, MG, GFR, LD, CRP, CBC, ESR #### [address] [address] Neutrophils/100 WBC (Bld) 55.8 % Normal 37.0-80.0 [facility] ([place]) Comment on above: Performed By: #### A DIFF, ANEU, CMP, MG, GFR, LD, CRP, CBC, ESR #### [address] [address] .GFRon 03-29-2023 GFR 94 ml/min/1.73sqm Normal [facility] ([place]) Comment on above: Result Comment: GFR Population [...] Performed By: #### U A, PREGU #### [facility] [place] [address] [place], [place] [address] GFR Non- 78 ml/min/1.73sqm Normal [facility] ([place]) Comment on above: Result Comment: GFR Population [...] Performed By: #### U A, PREGU #### [facility] [place] [address] [place], [place] [address] .NEUABSon 03-29-2023 Neutrophil, Absolute 3.8 10 3/mcL Normal 2.9-6.2 [facility] ([place]) Comment on above: Performed By: #### A DIFF, ANEU, CMP, MG, GFR, LD, CRP, CBC, ESR #### [address] [address] CBCon 03-29-2023 Erythrocyte distribution width (RBC) [Ratio] 13.8 % Normal 11.5-14.5 [facility] ([place]) Comment on above: Performed By: #### A DIFF, ANEU, CMP, MG, GFR, LD, CRP, CBC, ESR #### [address] [address] Hematocrit (Bld) [Volume fraction] 36.4 % Low 37.0-47.0 [facility] ([place]) Comment on above: Performed By: #### A DIFF, ANEU, CMP, MG, GFR, LD, CRP, CBC, ESR #### [address] [address] Hgb 12.1 G/dL Normal 12.0-16.0 [facility] ([place]) Comment on above: Performed By: #### A DIFF, ANEU, CMP, MG, GFR, LD, CRP, CBC, ESR #### [address] [address] MCH (RBC) [Entitic mass] 31.5 pg High 27.0-31.2 [facility] ([place]) Comment on above: Performed By: #### A DIFF, ANEU, CMP, MG, GFR, LD, CRP, CBC, ESR #### [address] [address] MCHC 33.2 G/dL Normal 33.0-37.0 [facility] ([place]) Comment on above: Performed By: #### A DIFF, ANEU, CMP, MG, GFR, LD, CRP, CBC, ESR #### [address] [address] MCV (RBC) [Entitic vol] 94.8 fL High 80.0-94.0 [facility] ([place]) Comment on above: Performed By: #### A DIFF, ANEU, CMP, MG, GFR, LD, CRP, CBC, ESR #### [address] [address] Platelet 299 10 3/mcL Normal 130-400 [facility] ([place]) Comment on above: Performed By: #### A DIFF, ANEU, CMP, MG, GFR, LD, CRP, CBC, ESR #### [address] [address] Platelet mean volume (Bld) [Entitic vol] 6.7 fL Low 7.4-10.4 [facility] ([place]) Comment on above: Performed By: #### A DIFF, ANEU, CMP, MG, GFR, LD, CRP, CBC, ESR #### [address] [address] RBC 3.83 10 6/mcL Low 4.20-5.40 [facility] ([place]) Comment on above: Performed By: #### A DIFF, ANEU, CMP, MG, GFR, LD, CRP, CBC, ESR #### [address] [address] WBC 6.8 10 3/mcL Normal 4.6-10.8 [facility] ([place]) Comment on above: Performed By: #### A DIFF, ANEU, CMP, MG, GFR, LD, CRP, CBC, ESR #### Sean [place] [address] [place], [place] [address] CMPon 03-29-2023 Albumin Level 3.5 G/dL Normal 3.5-5.0 [facility] ([place] Comment on above: Performed By: #### U A, PREGU #### [facility] [place] [address] [place], [place] [address] Albumin/Globulin [Mass ratio] 1.3 {ratio} Normal 1.1-2.5 [facility] ([place]) Comment on above: Performed By: #### U A, PREGU #### [facility] [place] [address] [place], [place] [address] ALP [Catalytic activity/Vol] 89 U/L Normal 40-135 [facility] ([place]) Comment on above: Performed By: #### U A, PREGU #### [facility] [place] [address] [place], [place] [address] ALT [Catalytic activity/Vol] 158 U/L High 14-59 [facility] ([place]) Comment on above: Performed By: #### U A, PREGU #### [facility] [place] [address] [place], [place] [address] AST [Catalytic activity/Vol] 107 U/L High 10-40 [facility] ([place]) Comment on above: Performed By: #### U A, PREGU #### [facility] [place] [address] [place], [place] [address] Bili Total 0.4 mg/dL Normal 0.2-1.0 [facility] ([place]) Comment on above: Result Comment: Use of this assay is not recommended for patients undergoing treatment with eltrombopag due to the potential for falsely elevated results. Performed By: #### U A, PREGU #### [facility] [place] [address] [place], [place] [address] BUN/Creatinine Ratio 19 ratio Normal 7-27 [facility]) Comment on above: Performed By: #### U A, PREGU #### Seanoz [address] [place], [place] [address] Calcium [Mass/Vol] 9.2 mg/dL Normal 8.4-10.2 [facility] ([place]) Comment on above: Performed By: #### U A, PREGU #### Seanoz [address] [place], [place] [address] Chloride [Moles/Vol] 102 mmol/L Normal 98-107 [facility] ([place] Comment on above: Performed By: #### U A, PREGU #### Seanoz [address] [place], [place] [address] CO2 [Moles/Vol] 29 mmol/L Normal 22-29 [facility] ([place] Comment on above: Performed By: #### U A, PREGU #### Seanoz [address] [place], [place] [address] Creatinine [Mass/Vol] 0.79 mg/dL Normal 0.55-1.02 [facility] ([place] Comment on above: Performed By: #### U A, PREGU #### Seanoz [address] [place], [place] [address] Electrolyte Balance 11.0 mEq/L Normal 4.0-15.0 [facility] ([place] Comment on above: Performed By: #### U A, PREGU #### Seanoz [address] [place], [place] [address] Globulin 2.7 G/dL Normal [facility] ([place] Comment on above: Performed By: #### U A, PREGU #### Seanoz [address] [place], [place] [address] Glucose [Mass/Vol] 106 mg/dL High 70-105 [facility] ([place] Comment on above: Performed By: #### U A, PREGU #### Seanoz [address] [place], [place] [address] Potassium [Moles/Vol] 3.8 mmol/L Normal 3.5-5.1 [facility] ([place] Comment on above: Performed By: #### U A, PREGU #### [facility] [place] [address] [place], [place] [address] Sodium [Moles/Vol] 142 mmol/L Normal 136-145 [facility] ([place] Comment on above: Performed By: #### U A, PREGU #### [facility] [place] [address] [place], [place] [address] Total Protein 6.2 G/dL Low 6.4-8.2 [facility] ([place] Comment on above: Performed By: #### U A, PREGU #### [facility] [place] [address] [place], [place] [address] Urea nitrogen [Mass/Vol] 15 mg/dL Normal 7-18 [facility] ([place]) Comment on above: Performed By: #### U A, PREGU #### [facility] [place] [address] [place], [place] [address] CRPon 03-29-2023 CRP [Mass/Vol] mg/L Normal 0.0-0.9 [facility] ([place]) Comment on above: Performed By: #### A DIFF, ANEU, CMP, MG, GFR, LD, CRP, CBC, ESR #### [address] [address] ESRon 03-29-2023 Erythrocyte Sed Rate 7 mm/hr Normal 0-20 [facility] ([place] Comment on above: Performed By: #### U A, PREGU #### [facility] [place] [address] [place], [place] [address] LDHon 03-29-2023 LDH 218 U/L Normal 81-234 [facility] ([place]) Comment on above: Performed By: #### A DIFF, ANEU, CMP, MG, GFR, LD, CRP, CBC, ESR #### [address] [address] MGon 03-29-2023 Magnesium [Mass/Vol] 1.8 mg/dL Normal 1.8-2.4 [facility] ([place] Comment on above: Performed By: #### A DIFF, ANEU, CMP, MG, GFR, LD, CRP, CBC, ESR #### [address] [address] .Auto Diffon 03-28-2023 Basophil, Absolute 0.1 10 3/mcL Normal 0.0-0.2 [facility] ([place] Comment on above: Performed By: #### A DIFF, ANEU, CMP, MG, GFR, LD, CRP, CBC, ESR #### [address] [address] Basophils/100 WBC (Bld) 1.1 % Normal 0.0-2.5 [facility] ([place]) Comment on above: Performed By: #### A DIFF, ANEU, CMP, MG, GFR, LD, CRP, CBC, ESR #### [address] [address] Eosinophil, Absolute 0.2 10 3/mcL Normal 0.0-0.4 [facility] ([place]) Comment on above: Performed By: #### A DIFF, ANEU, CMP, MG, GFR, LD, CRP, CBC, ESR #### [address] [address] Eosinophils/100 WBC (Bld) 2.8 % Normal 0.0-7.0 [facility] ([place]) Comment on above: Performed By: #### A DIFF, ANEU, CMP, MG, GFR, LD, CRP, CBC, ESR #### [address] [address] Lymphocyte, Absolute 1.9 10 3/mcL Normal 0.8-3.9 [facility] ([place]) Comment on above: Performed By: #### A DIFF, ANEU, CMP, MG, GFR, LD, CRP, CBC, ESR #### [address] [address] Lymphocytes/100 WBC (Bld) 24.7 % Normal 10.0-50.0 [facility] ([place]) Comment on above: Performed By: #### A DIFF, ANEU, CMP, MG, GFR, LD, CRP, CBC, ESR #### [address] [address] Monocyte, Absolute 0.5 10 3/mcL Normal 0.2-1.0 [facility] ([place] Comment on above: Performed By: #### A DIFF, ANEU, CMP, MG, GFR, LD, CRP, CBC, ESR #### [address] [address] Monocytes/100 WBC (Bld) 6.3 % Normal 1.7-13.0 [facility] ([place]) Comment on above: Performed By: #### A DIFF, ANEU, CMP, MG, GFR, LD, CRP, CBC, ESR #### [address] [address] Neutrophils/100 WBC (Bld) 65.1 % Normal 37.0-80.0 [facility] ([place]) Comment on above: Performed By: #### A DIFF, ANEU, CMP, MG, GFR, LD, CRP, CBC, ESR #### [address] [address] .GFRon 03-28-2023 GFR Non- 79 ml/min/1.73sqm Normal [facility] ([place] Comment on above: Result Comment: GFR Population [...] MG, GFR, LD, CRP, CBC, ESR #### [address] [address] GFR 96 ml/min/1.73sqm Normal [facility] ([place] Comment on above: Result Comment: GFR Population [...] MG, GFR, LD, CRP, CBC, ESR #### [address] [address] .MDWon 03-28-2023 Monocyte Distribution Width 21.06 High 0.00-20.00 [facility] ([place]) Comment on above: Result Comment: For adults in ED, MDW>20.0 may be associated with a higher risk of sepsis during the first 12hrs of hospital admission Performed By: #### A DIFF, ANEU, CMP, MG, GFR, LD, CRP, CBC, ESR #### [address] [address] .NEUABSon 03-28-2023 Neutrophil, Absolute 4.9 10 3/mcL Normal 2.9-6.2 [facility] ([place]) Comment on above: Performed By: #### A DIFF, ANEU, CMP, MG, GFR, LD, CRP, CBC, ESR #### [address] [address] CBCon 03-28-2023 Erythrocyte distribution width (RBC) [Ratio] 13.8 % Normal 11.5-14.5 [facility] ([place] Comment on above: Performed By: #### A DIFF, ANEU, CMP, MG, GFR, LD, CRP, CBC, ESR #### [address] [address] Hematocrit (Bld) [Volume fraction] 40.6 % Normal 37.0-47.0 [facility] ([place]) Comment on above: Performed By: #### A DIFF, ANEU, CMP, MG, GFR, LD, CRP, CBC, ESR #### [address] [address] Hgb 13.5 G/dL Normal 12.0-16.0 [facility] ([place]) Comment on above: Performed By: #### A DIFF, ANEU, CMP, MG, GFR, LD, CRP, CBC, ESR #### [address] [address] MCH (RBC) [Entitic mass] 30.8 pg Normal 27.0-31.2 [facility] ([place]) Comment on above: Performed By: #### A DIFF, ANEU, CMP, MG, GFR, LD, CRP, CBC, ESR #### [place] [address] MCHC 33.1 G/dL Normal 33.0-37.0 [facility] ([place]) Comment on above: Performed By: #### A DIFF, ANEU, CMP, MG, GFR, LD, CRP, CBC, ESR #### [address] [address] MCV (RBC) [Entitic vol] 93.0 fL Normal 80.0-94.0 [facility] ([place]) Comment on above: Performed By: #### A DIFF, ANEU, CMP, MG, GFR, LD, CRP, CBC, ESR #### [address] [address] Platelet 357 10 3/mcL Normal 130-400 [facility] ([place]) Comment on above: Performed By: #### A DIFF, ANEU, CMP, MG, GFR, LD, CRP, CBC, ESR #### [address] [address] Platelet mean volume (Bld) [Entitic vol] 6.6 fL Low 7.4-10.4 [facility] ([place]) Comment on above: Performed By: #### A DIFF, ANEU, CMP, MG, GFR, LD, CRP, CBC, ESR #### [address] [address] [address] RBC 4.37 10 6/mcL Normal 4.20-5.40 [facility] ([place] Comment on above: Performed By: #### A DIFF, ANEU, CMP, MG, GFR, LD, CRP, CBC, ESR #### [address] [address] WBC 7.6 10 3/mcL Normal 4.6-10.8 [facility] ([place]) Comment on above: Performed By: #### A DIFF, ANEU, CMP, MG, GFR, LD, CRP, CBC, ESR #### [address] [address] CMPon 03-28-2023 Albumin Level 3.8 G/dL Normal 3.5-5.0 [facility] ([place] Comment on above: Performed By: #### A DIFF, ANEU, CMP, MG, GFR, LD, CRP, CBC, ESR #### [address] [address] Albumin/Globulin [Mass ratio] 1.2 {ratio} Normal 1.1-2.5 [facility] ([place]) Comment on above: Performed By: #### A DIFF, ANEU, CMP, MG, GFR, LD, CRP, CBC, ESR #### [address] [address] ALP [Catalytic activity/Vol] 94 U/L Normal 40-135 [facility] ([place] Comment on above: Performed By: #### A DIFF, ANEU, CMP, MG, GFR, LD, CRP, CBC, ESR #### [address] [address] ALT [Catalytic activity/Vol] 157 U/L High 14-59 [facility] ([place] Comment on above: Performed By: #### A DIFF, ANEU, CMP, MG, GFR, LD, CRP, CBC, ESR #### [address] [address] AST [Catalytic activity/Vol] 70 U/L High 10-40 [facility] ([place] Comment on above: Performed By: #### A DIFF, ANEU, CMP, MG, GFR, LD, CRP, CBC, ESR #### [address] [address] Bili Total 0.2 mg/dL Normal 0.2-1.0 [facility] ([place] Comment on above: Result Comment: Use of this assay is not recommended for patients undergoing treatment with eltrombopag due to the potential for falsely elevated results. Performed By: #### A DIFF, ANEU, CMP, MG, GFR, LD, CRP, CBC, ESR #### [address] [address] BUN/Creatinine Ratio 24 ratio Normal 7-27 [facility] ([place] Comment on above: Performed By: #### A DIFF, ANEU, CMP, MG, GFR, LD, CRP, CBC, ESR #### [address] [address] Calcium [Mass/Vol] 9.6 mg/dL Normal 8.4-10.2 [facility] ([place] Comment on above: Performed By: #### A DIFF, ANEU, CMP, MG, GFR, LD, CRP, CBC, ESR #### [address] [address] Chloride [Moles/Vol] 98 mmol/L Normal 98-107 [facility] ([place] Comment on above: Performed By: #### A DIFF, ANEU, CMP, MG, GFR, LD, CRP, CBC, ESR #### [address] [address] CO2 [Moles/Vol] 30 mmol/L High 22-29 [facility] ([place]) Comment on above: Performed By: #### A DIFF, ANEU, CMP, MG, GFR, LD, CRP, CBC, ESR #### [address] [address] Creatinine [Mass/Vol] 0.78 mg/dL Normal 0.55-1.02 [facility] ([place]) Comment on above: Performed By: #### A DIFF, ANEU, CMP, MG, GFR, LD, CRP, CBC, ESR #### [address] [address] Electrolyte Balance 12.0 mEq/L Normal 4.0-15.0 [facility] ([place] Comment on above: Performed By: #### A DIFF, ANEU, CMP, MG, GFR, LD, CRP, CBC, ESR #### [address] [address] Globulin 3.1 G/dL Normal [facility] ([place] Comment on above: Performed By: #### A DIFF, ANEU, CMP, MG, GFR, LD, CRP, CBC, ESR #### [address] [address] Glucose [Mass/Vol] 159 mg/dL High 70-105 [facility] ([place] Comment on above: Performed By: #### A DIFF, ANEU, CMP, MG, GFR, LD, CRP, CBC, ESR #### [address] [address] Potassium [Moles/Vol] 3.5 mmol/L Normal 3.5-5.1 [facility] ([place] Comment on above: Performed By: #### A DIFF, ANEU, CMP, MG, GFR, LD, CRP, CBC, ESR #### [address] [address] Sodium [Moles/Vol] 140 mmol/L Normal 136-145 [facility] ([place] Comment on above: Performed By: #### A DIFF, ANEU, CMP, MG, GFR, LD, CRP, CBC, ESR #### [address] [address] Total Protein 6.9 G/dL Normal 6.4-8.2 [facility] ([place] Comment on above: Performed By: #### A DIFF, ANEU, CMP, MG, GFR, LD, CRP, CBC, ESR #### [address] [address] Urea nitrogen [Mass/Vol] 19 mg/dL High 7-18 [facility] ([place] Comment on above: Performed By: #### A DIFF, ANEU, CMP, MG, GFR, LD, CRP, CBC, ESR #### [address] [place], [place] [address] CT ABD/PELVIS W/ IV CONTRAST ONLYon 03-28-2023 [...] 9:48:56 PM Ordering Provider: LETHA SHAIKH Normal [facility] ([place]) LIPon 03-28-2023 Lipase Level 165 U/L High 16-77 [facility] ([place]) Comment on above: Performed By: #### A DIFF, ANEU, CMP, MG, GFR, LD, CRP, CBC, ESR #### [address] [place], [place] [address] UAon 03-28-2023 Color (U) Yellow Normal [facility] ([place] Comment on above: Performed By: #### U A, PREGU #### [address] [place], [place] [address] Glucose (U) [Mass/Vol] Negative Normal Negative [facility] ([place] Comment on above: Performed By: #### U A, PREGU #### [address] [place], [place] [address] Ketones Ql (U) Negative Normal Negative [facility] ([place]) Comment on above: Performed By: #### U A, PREGU #### [address] [place], [place] [address] UA Appear Clear Normal Clear [facility] ([place] Comment on above: Performed By: #### U A, PREGU #### [address] [place], [place] [address] UA Blood Negative Normal Negative [facility] ([place] Comment on above: Performed By: #### U A, PREGU #### [address] [place], [place] [address] UA Leuk Est Negative Normal Negative [facility] ([place]) Comment on above: Performed By: #### U A, PREGU #### [address] [place], [place] [address] UA Nitrite Negative Normal Negative [facility] ([place] Comment on above: Performed By: #### U A, PREGU #### [address] [place], [place] [address] UA pH 6.0 Normal 5.0 - 8.0 [facility] ([place] Comment on above: Performed By: #### U A, PREGU #### [address] [place], [place] [address] UA Protein Negative Normal Negative [facility] ([place] Comment on above: Performed By: #### U A, PREGU #### [address] [place], [place] [address] UA Spec Grav 1.025 Normal 1.015-1.025 [facility] ([place]) Comment on above: Performed By: #### U A, PREGU #### [address] [place], [place] [address] UA Specimen Type Not Given Normal [facility] ([place] Comment on above: Performed By: #### U A, PREGU #### [address] [place], [place] [address] UA Urobilinogen 0.2 E.U./dL Normal 0.2-1.0 [facility] ([place] Comment on above: Performed By: #### U A, PREGU #### [address] [place], [place] [address] Urobilinogen (U) [Mass/Vol] Negative Normal Negative [facility] ([place] Comment on above: Performed By: #### U A, PREGU #### [address] [place], [place] [address] LABORATORYOrdered By: SYSTEM SYSTEM on 03-11-2023 Albumin [...] 10.8 10^3/mcL AO Workflow SS LABORATORYOrdered By: HARDEEP_Estevan PIETRO CONTRIBUTOR_SYSTEM on 03-10-2023 IGG Subclass 1 434.2 mg/dL Invalid Interpretation Code 382.4-928.6m g/dL AO Sendouts SS Comment on above: Result Comment: Perf ormed By: [facility] [employer] [address] [place] [address] Cnc Machine Programmer: Jameson Saldivar III, M.D. CLIA#: [id number] IGG Subclass 2 238.2 mg/dL Invalid Interpretation Code 241.8-700.3m g/dL AO Sendouts SS Comment on above: Result Comment: Perf ormed By: [facility] [employer] [address] [place] [address] [employer]nc Machine Programmer: Jameson Saldivar III, M.D. CLIA#: [id number] IGG Subclass 3 32.2 mg/dL Invalid Interpretation Code 21.8-176.1mg /dL AO Sendouts SS Comment on above: Result Comment: Perf ormed By: [facility] [employer] [address] [place] [address] Cnc Machine Programmer: Jameson Saldivar III, M.D. CLIA#: [id number] IGG Subclass 4 110.3 mg/dL Invalid Interpretation Code 3.9-86.4mg/d L AO Sendouts SS Comment on above: Result Comment: Perf ormed By: [facility] [address] [place] [address] Cnc Machine Programmer: Miguel Blanco III#: [id number] LABORATORYOrdered By: SYSTEM SYSTEM on 03-09-2023 Albumin [...] Glucose Testing Reason Routine (03/08/23 8:34 AM) [place] Glucose [Mass/Vol] 94 mg/dL Invalid Interpretation Code 70 - 110 mg/dL [place] LABORATORYOrdered By: Elaine Skinner on 03-08-2023 Calcium.ionized [...] Probable Contamination. Suggest recollection if clinically indicated. [place] LABORATORYOrdered By: Cynthia Garcia on 01-25-2023 Acetaminophen [...] ratio AH ADM SS ALP [Catalytic activity/Vol] 141 U/L Invalid Interpretation Code 38 - 126 U/L AH ADM SS ALT No additional P-5'-P [Catalytic activity/Vol] 65 U/L Invalid Interpretation Code 10 - 49 U/L AH ADM SS AST [Catalytic activity/Vol] U/L 1 Invalid Interpretation Code 8 - 34 U/L AH ADM SS Basophils (Bld) [#/Vol] 0.1 103/mcL Invalid Interpretation Code 0.0 - 0.3 10^3/mcL Workflow SS Basophils/100 WBC (Bld) 1.2 % Invalid Interpretation Code 0.0 - 2.5 % Workflow SS Bilirubin [Mass/Vol] 0.20 mg/dL Invalid Interpretation Code 0.20 - 1.20 mg/dL AH ADM SS Calcium [Mass/Vol] 9.9 mg/dL Invalid Interpretation Code 8.7 - 10.4 mg/dL AH ADM SS Chloride [Moles/Vol] 106 mmol/L Invalid Interpretation Code 98 - 110 mEq/L AH ADM SS CO2 [Moles/Vol] 26 mmol/L Invalid Interpretation Code 22 - 32 mEq/L AH ADM SS Creatinine [Mass/Vol] 0.65 mg/dL Invalid Interpretation Code 0.50 - 1.20 mg/dL AH ADM SS Electrolyte Balance 8.0 mEq/L Invalid Interpretation Code 4.0 - 15.0 mEq/L ADM SS Eosinophils (Bld) [#/Vol] 0.1 103/mcL Invalid Interpretation Code 0.0 - 0.7 10^3/mcL AH Workflow SS Eosinophils/100 WBC (Bld) 2.4 % Invalid Interpretation Code 0.0 - 6.0 % Workflow SS Erythrocyte distribution width (RBC) [Ratio] 13.6 % Invalid Interpretation Code 11.5 - 15.5 % AH Workflow SS GFR/1.73 sq M.predicted among blacks [...] 46.0 % Workflow SS Hemoglobin (Bld) [Mass/Vol] 14.1 G/dL Invalid Interpretation Code 12.0 - 16.0 G/dL AH Workflow SS Lipase [Catalytic activity/Vol] 30 U/L Invalid Interpretation Code 12 - 53 U/L ADM SS Lymphocytes (Bld) [#/Vol] 2.1 103/mcL Invalid Interpretation Code 0.9 - 4.3 10^3/mcL Workflow SS Lymphocytes/100 WBC (Bld) 36.4 % Invalid Interpretation Code 20.0 - 40.0 % AH Workflow SS MCH (RBC) [Entitic mass] 30.6 pg Invalid Interpretation Code 27.0 - 33.0 pg Workflow SS MCHC 33.4 G/dL Invalid Interpretation Code 32.0 - 36.0 G/dL Workflow SS MCV (RBC) [Entitic vol] 91.8 fL Invalid Interpretation Code 80.0 - 99.0 fL Workflow SS Monocyte distribution width Auto (Bld) [Entitic vol] 16.62 Invalid Interpretation Code 0.00 - 20.00 Workflow SS Comment on above: Result Comment: For ED adult patients suspected of sepsis, MDW<=20.0 does not rule out sepsis or risk of sepsis Monocytes (Bld) [#/Vol] 0.4 103/mcL Invalid Interpretation Code 0.1 - 1.4 10^3/mcL Workflow SS Monocytes/100 WBC (Bld) 6.3 % Invalid Interpretation Code 2.0 - 13.0 % Workflow SS Neutrophils (Bld) [#/Vol] 3.1 103/mcL Invalid Interpretation Code 2.3 - 8.1 10^3/mcL Workflow SS Neutrophils/100 WBC (Bld) 53.7 % Invalid Interpretation Code 50.0 - 75.0 % Workflow SS Platelet mean volume (Bld) [Entitic vol] 6.7 fL Invalid Interpretation Code 6.6 - 10.5 fL Workflow SS Platelets (Bld) [#/Vol] 369 103/mcL Invalid Interpretation Code 150 - 450 10^3/mcL Workflow SS Potassium [Moles/Vol] 3.8 mmol/L Invalid Interpretation Code 3.5 - 5.0 mEq/L ADM SS Comment on above: Result Comment: Spec imen slightly hemolyzed. Protein [Mass/Vol] 7.5 G/dL Invalid Interpretation Code 5.7 - 8.2 G/dL ADM SS RBC (Bld) [#/Vol] 4.61 106/mcL Invalid Interpretation Code 4.10 - 5.30 10^6/mcL Workflow SS Sodium [Moles/Vol] 140 mmol/L Invalid Interpretation Code 136 - 145 mEq/L ADM SS Troponin I.cardiac DL <= 0.01 ng/mL [Mass/Vol] ng/L Invalid Interpretation Code 0.00 - 34.00 ng/L ADM SS Urea nitrogen [Mass/Vol] 12.0 mg/dL Invalid Interpretation Code 8.0 - 22.0 mg/dL ADM SS Urea nitrogen/Creatinine [Mass ratio] 18.5 ratio Invalid Interpretation Code 10.0 - 22.0 ratio ADM SS WBC (Bld) [#/Vol] 5.7 103/mcL [...] Code 12 - 53 U/L ADM SS Albumin BCP dye [Mass/Vol] 4.6 G/dL Invalid Interpretation Code 3.2 - 4.8 G/dL ADM SS Albumin/Globulin [Mass ratio] 1.3 {ratio} Invalid Interpretation Code 0.9 - 1.6 ratio ADM SS ALP [Catalytic activity/Vol] 145 U/L Invalid Interpretation Code 38 - 126 U/L ADM SS ALT No additional P-5'-P [Catalytic activity/Vol] 75 U/L Invalid Interpretation Code 10 - 49 U/L ADM SS AST [Catalytic activity/Vol] 44 U/L [...] Invalid Interpretation Code 11.5 - 15.5 % AH Workflow SS GFR/1.73 sq M.predicted among blacks MDRD (S/P/Bld) [Vol rate/Area] ml/min/1.73sqm Invalid Interpretation Code AH ADM SS GFR/1.73 sq M.predicted among non-blacks MDRD (S/P/Bld) [Vol rate/Area] ml/min/1.73sqm Invalid Interpretation Code AH ADM SS Globulin 3.6 G/dL Invalid Interpretation Code 1.5 - 3.8 G/dL AH ADM SS Glucose [Mass/Vol] 127 mg/dL Invalid Interpretation Code 70 - 110 mg/dL ADM SS Hematocrit (Bld) [Volume fraction] 44.6 % Invalid Interpretation Code 34.0 - 46.0 % AH Workflow SS Hemoglobin (Bld) [Mass/Vol] 15.1 G/dL [...] Invalid Interpretation Code 50.0 - 75.0 % Workflow SS Platelet mean volume (Bld) [Entitic vol] 6.2 fL Invalid Interpretation Code 6.6 - 10.5 fL Workflow SS Platelets (Bld) [#/Vol] 399 103/mcL Invalid Interpretation Code 150 - 450 10^3/mcL AH Workflow SS Potassium [Moles/Vol] 3.7 mmol/L Invalid Interpretation Code 3.5 - 5.0 mEq/L AH ADM SS Comment on above: Result Comment: Spec imen slightly hemolyzed. Protein [Mass/Vol] 8.2 G/dL Invalid Interpretation Code 5.7 - 8.2 G/dL ADM SS RBC (Bld) [#/Vol] 4.81 106/mcL Invalid Interpretation Code 4.10 - 5.30 10^6/mcL Workflow SS Sodium [Moles/Vol] 136 mmol/L Invalid [...] AH Auto Coag SS Heparin dose (APTT) Unknown (07/27/22 9:43 AM) Invalid Interpretation Code AH Auto Coag SS INR Coag (PPP) [Relative time] 1.0 {INR} Invalid Interpretation Code AH Auto Coag [...] Invalid Interpretation Code 20.0 - 40.0 % Workflow SS Magnesium [Mass/Vol] 1.9 mg/dL Invalid Interpretation Code 1.6 - 2.4 mg/dL ADM SS MCH (RBC) [Entitic mass] 30.8 pg Invalid Interpretation Code 27.0 - 33.0 pg Workflow SS MCHC 33.2 G/dL Invalid Interpretation Code 32.0 - 36.0 G/dL Workflow SS MCV (RBC) [Entitic vol] 92.9 fL Invalid Interpretation Code 80.0 - 99.0 fL Workflow SS Monocytes (Bld) [#/Vol] 0.5 103/mcL Invalid Interpretation Code 0.1 - 1.4 10^3/mcL Workflow SS Monocytes/100 WBC (Bld) 8.6 % Invalid Interpretation Code 2.0 - 13.0 % Workflow SS Neutrophils (Bld) [#/Vol] 2.7 103/mcL Invalid Interpretation Code 2.3 - 8.1 10^3/mcL Workflow SS Neutrophils/100 WBC (Bld) 45.9 % Invalid Interpretation Code 50.0 - 75.0 % Workflow SS Platelet mean volume (Bld) [Entitic vol] 6.6 fL Invalid Interpretation Code 6.6 - 10.5 fL Workflow SS Platelets (Bld) [#/Vol] 291 103/mcL Invalid Interpretation Code 150 - 450 10^3/mcL Workflow SS Potassium [Moles/Vol] 3.7 mmol/L Invalid Interpretation Code 3.5 - 5.0 mEq/L AH ADM SS Comment on above: Result Comment: Spec imen slightly hemolyzed. Protein [Mass/Vol] 6.1 G/dL Invalid Interpretation Code 5.7 - 8.2 G/dL AH ADM SS RBC (Bld) [#/Vol] 4.22 106/mcL Invalid Interpretation Code 4.10 - 5.30 10^6/mcL AH Workflow SS Sodium [Moles/Vol] 139 mmol/L Invalid Interpretation Code 136 - 145 mEq/L AH ADM SS Urea nitrogen [Mass/Vol] 11.0 mg/dL Invalid Interpretation Code 8.0 - 22.0 mg/dL AH ADM SS Urea nitrogen/Creatinine [Mass ratio] 16.2 [...] 4.8 G/dL ADM SS Albumin/Globulin [Mass ratio] 1.1 {ratio} Invalid Interpretation Code 0.9 - 1.6 ratio AH ADM SS ALP [Catalytic activity/Vol] 151 U/L Invalid Interpretation Code 38 - 126 U/L ADM SS ALT No additional P-5'-P [Catalytic activity/Vol] 131 U/L Invalid Interpretation Code 10 - 49 U/L ADM SS AST [Catalytic activity/Vol] 29 U/L Invalid Interpretation Code 8 - 34 U/L ADM SS Basophils (Bld) [#/Vol] 0.1 103/mcL Invalid Interpretation Code 0.0 - 0.3 10^3/mcL AH Workflow SS Basophils/100 WBC (Bld) 0.9 % [...] 10^3/mcL AH Workflow SS Eosinophils/100 WBC (Bld) 3.2 % [...] G/dL AH Workflow SS Lymphocytes (Bld) [#/Vol] 2.4 103/mcL Invalid Interpretation Code 0.9 - 4.3 10^3/mcL AH Workflow SS Lymphocytes/100 WBC (Bld) 34.5 % Invalid Interpretation Code 20.0 - 40.0 % Workflow SS Magnesium [Mass/Vol] 1.9 mg/dL Invalid Interpretation Code 1.6 - 2.4 mg/dL ADM SS MCH (RBC) [Entitic mass] 31.1 [...] Invalid Interpretation Code 50.0 - 75.0 % Workflow SS Platelet mean volume (Bld) [Entitic vol] 6.3 fL Invalid Interpretation Code 6.6 - 10.5 fL AH Workflow SS Platelets (Bld) [#/Vol] 306 103/mcL Invalid Interpretation Code 150 - 450 10^3/mcL AH Workflow SS Potassium [Moles/Vol] 4.4 mmol/L Invalid Interpretation Code 3.5 - 5.0 mEq/L AH ADM SS Protein [Mass/Vol] 5.9 G/dL Invalid [...] 22.0 ratio ADM SS WBC (Bld) [#/Vol] 7.0 103/mcL Invalid Interpretation Code 4.5 - 10.8 10^3/mcL Workflow SS LABORATORYOrdered By: SYSTEM SYSTEM on [...] 0.7 10^3/mcL Workflow SS Eosinophils/100 WBC (Bld) 3.5 % [...] 46.0 % Workflow SS Hemoglobin (Bld) [Mass/Vol] 12.6 G/dL Invalid Interpretation Code 12.0 - 16.0 G/dL Workflow SS Lymphocytes (Bld) [#/Vol] 2.6 103/mcL Invalid Interpretation Code 0.9 - 4.3 10^3/mcL Workflow SS Lymphocytes/100 WBC (Bld) 44.6 % Invalid Interpretation Code 20.0 - 40.0 % Workflow SS MCH (RBC) [Entitic mass] 31.6 pg Invalid Interpretation Code 27.0 - 33.0 pg Workflow SS MCHC 33.6 G/dL Invalid Interpretation Code 32.0 - 36.0 G/dL Workflow SS MCV (RBC) [Entitic vol] 93.8 fL Invalid Interpretation Code 80.0 - 99.0 fL AH Workflow SS Monocytes (Bld) [#/Vol] 0.4 103/mcL Invalid Interpretation Code 0.1 - 1.4 10^3/mcL AH Workflow SS Monocytes/100 WBC (Bld) 7.6 % Invalid Interpretation Code 2.0 - 13.0 % AH Workflow SS Neutrophils (Bld) [#/Vol] 2.5 103/mcL Invalid Interpretation Code 2.3 - 8.1 10^3/mcL AH Workflow SS Neutrophils/100 WBC (Bld) 43.5 % Invalid Interpretation Code 50.0 - 75.0 % AH Workflow SS Platelet mean volume (Bld) [Entitic vol] 6.7 fL Invalid Interpretation Code 6.6 - 10.5 fL Workflow SS Platelets (Bld) [#/Vol] 305 103/mcL Invalid Interpretation Code 150 - 450 10^3/mcL AH Workflow SS Potassium [Moles/Vol] 3.3 mmol/L Invalid Interpretation Code 3.5 - 5.0 mEq/L ADM SS Comment on above: Result Comment: Spec imen slightly hemolyzed. Protein [Mass/Vol] 6.1 G/dL Invalid Interpretation Code 5.7 - 8.2 G/dL ADM SS RBC (Bld) [#/Vol] 3.99 106/mcL Invalid Interpretation Code 4.10 - 5.30 10^6/mcL Workflow SS Sodium [Moles/Vol] 141 mmol/L Invalid Interpretation Code 136 - 145 mEq/L ADM SS Urea nitrogen [Mass/Vol] 9.0 mg/dL Invalid Interpretation Code 8.0 - 22.0 mg/dL ADM SS Urea nitrogen/Creatinine [Mass ratio] 11.4 ratio Invalid Interpretation Code 10.0 - 22.0 ratio ADM SS WBC (Bld) [#/Vol] 5.8 103/mcL Invalid Interpretation Code 4.5 - 10.8 10^3/mcL Workflow SS LABORATORYOrdered By: SYSTEM SYSTEM on 06-19-2022 Ferritin [Mass/Vol] 36.0 ng/mL [...] AM) Invalid Interpretation Code Non-Reactive ADM SS HCV Ab IA Ql Non-Reactive (06/19/22 11:08 AM) Invalid Interpretation Code Non-Reactive ADM SS HCV Ab IA Ql Nonreactive: Samples with a value < 0.80 are considered nonreactive (negative) for antibodies to HCV.A negative test result does not exclude the possibility of exposure to or infection with HCV. HCV antibodies may be undetectable in some stages of the infection and in some clinical conditions. Invalid Interpretation Code Chemistry S LABORATORYOrdered By: Cynthia Moreno on 06-19-2022 Mitochondria Ab IF Ql (S) Neg 20 (06/19/22 11:08 AM) Invalid Interpretation Code Neg 20 AH Man Viro/Sero SS Smooth muscle Ab IF Ql (S) Neg 20 (06/19/22 11:08 AM) Invalid Interpretation Code Neg 20 AH Man Viro/Sero SS LABORATORYOrdered By: [employer] SYSTEM on 06-18-2022 Magnesium [Mass/Vol] 1.7 mg/dL Invalid Interpretation Code 1.6 - 2.4 mg/dL AH ADM SS LABORATORYOrdered By: Pam Mckeon on 06-17-2022 Appearance (U) Clear (06/17/22 2:27 PM) [facility] Beta HCG ( test) Ql (U) Negative (06/17/22 2:27 PM) [facility] Bilirubin Urine Dipstick Negative (06/17/22 2:27 PM) [facility] Blood Urine Dipstick Negative (06/17/22 2:27 PM) [facility] Glucose Urine Dipstick Negative (06/17/22 2:27 PM) [facility] Ketones Urine Dipstick Negative (06/17/22 2:27 PM) [facility] Leukocytes Urine Dipstick Negative (06/17/22 2:27 PM) [facility] Nitrite Urine Dipstick Negative (06/17/22 2:27 PM) [facility] pH Urine Dipstick 6.5 (06/17/22 2:27 PM) [facility] Protein Urine Dipstick Negative (06/17/22 2:27 PM) [facility] Specific [place] Urine Dipstick 1.010 (06/17/22 2:27 PM) [facility] Urine Color Urine Dipstick Yellow (06/17/22 2:27 PM) [facility] Urobilinogen Urine Dipstick 0.2 mg/dl (06/17/22 2:27 PM) [facility] LABORATORYOrdered By: Martha Butt on 06-17-2022 [...] 17.52 Invalid Interpretation Code 0.00 - 20.00 Workflow [...] Occult Bld Stl Positive (06/17/22 10:56 AM) [facility] LABORATORYOrdered By: Carie Borjas on 06-17-2022 [...] 27 ratio AO ADM SS LABORATORYOrdered By: [employer] SYSTEM on 07-02-2021 GFR 66 ml/min/1.73sqm Invalid [...] 27 ratio AO ADM SS LABORATORYOrdered By: [employer] on 06-30-2021 GFR 78 ml/min/1.73sqm Invalid Interpretation Code AO Chemistry S GFR Non- 64 ml/min/1.73sqm Invalid Interpretation Code AO Chemistry S LABORATORYOrdered By: Gil Hardy on 06-30-2021 Natriuretic peptide.B prohormone N-Terminal [Mass/Vol] 477 pg/mL Invalid Interpretation Code 0 - 125 pg/mL AO ADM SS CNPNon 03-02-2021 CNPN Telephone (NEEPBA) DOROTHEA RUTLEDGE ([id number]) 1975 F Date Time Provider Department 03/02/21 JOSELYN CORDERO During your visit today, we recorded the following information about you: Vito Bonilla [place] [facility] 03/02/2021 10:04 AM Signed Pt sent a my chart asking to schedule a virtual appt with Dr. Aldrich. I let her know the next available here in [place] is in late Apr. Or she could [...] 30-34.9 [E66.9] 11/27/2019 Encounter Status:Closed by SALVATORE COAGULATING OPERATOR VITO BOWEN on 03/02/21 [facility] EMERGENCY REPORTon 0 EMERGENCY REPORT [facility] EMERGENCY ROOM REPORT NAME ACCOUNT SEX AGE ADMIT DISCHARGE PT MED. RECORD# NUMBER DATE DATE TYPE DOROTHEA RUTLEDGE [id number] F 43 12/03/19 12/03/19 2 M [id number] ROOM: ER DATE OF : 1975 DICTATING [...] Parul Cardona DO 12/03/19 21:58 JOB #: [id number] Transcribed By: vivian 12/04/19 13:51 Electronically signed by: E-SIGN: Parul Cardona D.O. 12/17/19 19:20 Page 2 of 2 DOROTHEA RUTLEDGE Emergency Room Report Normal [facility] PROTHROMBIN TIME AND INRon 0 12-03-2019 INR Coag (Bld) [Relative time] Normal [facility] Comment on above: Result Comment: PROT HROMBIN TIME AND INR Performed By: #### [id number] #### [facility],[address] [place] [address] INR Coag (PPP) [Relative time] 2.5 {INR} High 0.8 - 1.2 [facility] Comment on above: Result Comment: T HE [...] [employer] Performed By: #### [id number] #### [facility],[address] [place], [place] [id number] PT-COUMADIN 27.5 sec High 9.3 - 14.1 [facility] Comment on above: Performed By: #### [id number] #### [facility],[address] [place], [place] [id number] Levetiracetamon 11-28-2019 Levetiracetam [Mass/Vol] 33.1 ug/mL Normal 12.0-46.0 [facility] Comment on above: Result Comment: This [...] developed and its performance characteristics determined by [facility]'s [facility] Pathology [facility] [place] ([facility]). It has not been cleared or approved by the FDA. [facility] is regulated under CLIA as qualified to perform high complexity testing. This test is used for clinical purposes. It should not be regarded as investigational or for research. Performing Laboratory: [facility] [employer] [address] [address] Performed By: #### K EPPX #### [facility] [address] [address] Topiramateon 11-28-2019 Topiramate 14.0 ug/mL Normal 5.0-20.0 [facility] Comment on above: Result Comment: Refe rence ranges and high/low indicator flags are provided as general guidelines only. The treating physician must determine appropriate target levels/dosing based on the specific clinical situation. This test was developed and its performance characteristics determined by [facility]'s [facility] [place] ([facility]). It has not been cleared or approved by the FDA. [facility] is regulated under CLIA as qualified to perform high complexity testing. This test is used for clinical purposes. It should not be regarded as investigational or for research. Performing Laboratory: [facility] [address] [place] [address] Performed By: #### T OPIX #### [address] [address] Activated PTTon 11-27-2019 aPTT Coag (Bld) [Time] 30.4 s Normal 23.0-32.4 [facility] Comment on above: Result Comment: Unfr [...] laboratory APTT reagent in use throughout the [facility]. Performed By: #### A PTT #### [address] [address] Protimeon 11-27-2019 INR Coag (PPP) [Relative time] 1.97 {INR} High 0.90-1.30 [facility] Comment on above: Result Comment: Lory min K Antagonist (VKA) Therapeutic Range: INR 2 to 3 (Target INR of 2.5) Note: For patients treated with VKA drugs, such as warfarin, the [employer] 2012 Guideline recommends [...] Chest 2012; 141:7S-47S Arnel RA et al. [facility] 2017; 70: 252-289 Performed By: #### P T #### [address] [address] PT Coag (PPP) [Time] 21.0 s High 9.7-13.0 [facility] Comment on above: Performed By: #### P T #### [address] [address] Comprehensive Panelon 2019 ALP [Catalytic activity/Vol] 91 U/L Normal 45-117 [facility] Comment on above: Performed By: #### P 14 #### [address] [address] Bilirubin [Mass/Vol] 0.2 mg/dL Normal 0.2-1.0 [facility] Comment on above: Result Comment: Use of this assay is not recommended for patients undergoing treatment with eltrombopag due to the potential for falsely elevated results. Performed By: #### P 14 #### [address] [address] Protein [Mass/Vol] 6.4 g/dL Normal 6.4-8.2 [facility] Comment on above: Performed By: #### P 14 #### [address] [address] Creatinine [Mass/Vol] 0.79 mg/dL Normal 0.51-0.95 [facility] Comment on above: Result Comment: Use of this assay is not recommended for patients undergoing treatment with phenindione, due to the potential for falsely depressed results. Performed By: #### P 14 #### [address] [address] ALT [Catalytic activity/Vol] 34 U/L Normal 12-78 [facility] Comment on above: Performed By: #### P 14 #### [address], [place] [address] AST [Catalytic activity/Vol] 27 U/L Normal 15-37 [facility] Comment on above: Performed By: #### P 14 #### [facility] [address] [place], [place] [address] Albumin [Mass/Vol] 3.0 g/dL Low 3.4-5.0 [facility] Comment on above: Performed By: #### P 14 #### [facility] [address] [place], [place] [address] Anion gap [Moles/Vol] 11 mmol/L Normal 8-16 [facility] Comment on above: Performed By: #### P 14 #### [facility] [address] [place], [place] [address] CO2 [Moles/Vol] 19 mmol/L Low 21-32 [facility] Comment on above: Performed By: #### P 14 #### [facility] [address] [place], [place] [address] Glucose [Mass/Vol] 100 mg/dL High 70-99 [facility] Comment on above: Performed By: #### P 14 #### [facility] [address] [place], [place] [address] Urea nitrogen [Mass/Vol] 20 mg/dL High 7-18 [facility] Comment on above: Performed By: #### P 14 #### [facility] [address] [place], [place] [address] Calcium [Mass/Vol] 7.7 mg/dL Low 8.5-10.1 [facility] Comment on above: Performed By: #### P 14 #### [facility] [address] [place], [place] [address] Chloride [Moles/Vol] 113 mmol/L High 98-107 [facility] Comment on above: Performed By: #### P 14 #### [facility] [address] [place], [place] [address] Potassium [Moles/Vol] 3.7 mmol/L Normal 3.5-5.1 [facility] Comment on above: Performed By: #### P 14 #### [facility] [address] [place] [address] Sodium [Moles/Vol] 139 mmol/L Normal 136-145 [facility] Comment on above: Performed By: #### P 14 #### [facility] [address] [place] [address] Hemogram/Diffon 11-26-2019 Abs Immature Grans 0.01 thou/cmm Normal 0.00-0.05 [facility] Comment on above: Performed By: #### C BCD1 #### [facility] [address] [place] [address] Abs Neut (ANC) 2.15 thou/cmm Normal 1.56-6.13 [facility] Comment on above: Performed By: #### C BCD1 #### [facility] [address] [place] [address] Abs. Baso 0.03 thou/cmm Normal 0.01-0.08 [facility] Comment on above: Performed By: #### C BCD1 #### [place] [address] Abs. [place] 0.37 thou/cmm Normal 0.27-0.70 [facility] Comment on above: Performed By: #### C BCD1 #### [place] [address] Basophils/100 WBC (Bld) 0.7 % Normal [facility] Comment on above: Performed By: #### C BCD1 #### [place] [address] Eosinophils (Bld) [#/Vol] 0.08 thou/cmm Normal 0.00-0.31 [facility] Comment on above: Performed By: #### C BCD1 #### [facility] [address] [place] [address] Eosinophils/100 WBC (Bld) 1.7 % Normal [facility] Comment on above: Performed By: #### C BCD1 #### [place] [address] Erythrocyte distribution width (RBC) [Ratio] 11.8 % Normal 11.7-14.4 [facility] Comment on above: Performed By: #### C BCD1 #### [facility] [address] [place] [address] Hematocrit (Bld) [Volume fraction] 38.2 % Normal 34.1-44.9 [facility] Comment on above: Performed By: #### C BCD1 #### [facility] [address] [place] [address] Hemoglobin (Bld) [Mass/Vol] 12.8 g/dL Normal 11.2-15.7 [facility] Comment on above: Performed By: #### C BCD1 #### [facility] [address] [place] [address] Immature Grans 0.20 % Normal [facility] Comment on above: Performed By: #### C BCD1 #### [facility] [address] [place] [address] Lymphocytes (Bld) [#/Vol] 1.96 thou/cmm Normal 1.18-3.74 [facility] Comment on above: Performed By: #### C BCD1 #### [facility] [address] [place] [address] Lymphocytes/100 WBC (Bld) 42.6 % Normal [facility] Comment on above: Performed By: #### C BCD1 #### [facility] [address] [place] [address] MCH (RBC) [Entitic mass] 33.2 pg High 25.6-32.2 [facility] Comment on above: Performed By: #### C BCD1 #### [facility] [address] [place] [address] MCHC (RBC) [Mass/Vol] 33.5 % Normal 31.6-34.8 [facility] Comment on above: Performed By: #### C BCD1 #### [facility] [address] [place] [address] MCV (RBC) [Entitic vol] 99.0 fL High 79.4-94.8 [facility] Comment on above: Performed By: #### C BCD1 #### [facility] [address] [place], [place] [address] Monocytes/100 WBC (Bld) 8.0 % Normal [facility] Comment on above: Performed By: #### C BCD1 #### [facility] [address] [place], [place] [address] Platelet mean volume (Bld) [Entitic vol] 8.7 fL Low 9.4-12.3 [facility] Comment on above: Performed By: #### C BCD1 #### [facility] [address] [place] [address] Platelets (Bld) [#/Vol] 150 thou/cmm Low 182-369 [facility] Comment on above: Performed By: #### C BCD1 #### [facility] [address] [place] [address] RBC (Bld) [#/Vol] 3.86 mil/cmm Low 3.93-5.22 [facility] Comment on above: Performed By: #### C BCD1 #### [facility] [address] [place] [address] RDW SD 42.7 fl Normal 36.4-46.3 [facility] Comment on above: Performed By: #### C BCD1 #### [facility] [address] [place] [address] Seg Neutrophil 46.8 % Normal [facility] Comment on above: Performed By: #### C BCD1 #### [facility] [address] [place] [address] WBC (Bld) [#/Vol] 4.60 thou/cmm Normal 3.98-10.04 [facility] Comment on above: Performed By: #### C BCD1 #### [facility] [address] [place] [address] MDRD GFRon 11-26-2019 GFR/1.73 sq M predicted among non-blacks MDRD (S/P/Bld) [Vol rate/Area] mL/min/{1.73_m2} Normal >60mL/min/1. 73m2 [facility] Comment on above: Result Comment: If t he patient is , multiply the result by 1.210. Performed By: #### G FR #### [facility] [address] [place] [address] Urine Drug Screenon 11-26-19 20 Urine Amphetamine Non-detected Normal Non-Detected [facility] Comment on above: Performed By: #### U DRG2 #### [facility] [address] [place] [address] Urine Barbiturates Non-detected Normal Non-Detected [facility] Comment on above: Performed By: #### U DRG2 #### [facility] [address] [place] [address] Urine Benzodiazepine Non-detected Normal Non-Detected [facility] Comment on above: Performed By: #### U DRG2 #### [facility] [address] [place] [address] Urine Opiate Non-detected Normal Non-Detected [facility] Comment on above: Performed By: #### U DRG2 #### [place] [address] Urine PCP Non-detected Normal Non-Detected [facility] Comment on above: Performed By: #### U DRG2 #### [place] [address] Urine THC Non-detected Normal Non-Detected [facility] Comment on above: Result Comment: Urin [...] only. Performed By: #### U DRG2 #### [facility] [address] [place] [address] Urine Cocaine Metab Non-detected Normal Non-Detected [facility] Comment on above: Performed By: #### U DRG2 #### [facility] [address] [place], [place] [address] Urine HCG, Qual.on 0 Beta HCG ( test) Ql (U) Negative Normal Negative [facility] Comment on above: Performed By: #### H CGUR #### [facility] [address] [place], [place] [address] Specific [place], Ur 1.007 Normal 1.005-1.030 [facility] Comment on above: Performed By: #### H CGUR #### [facility] [address] [place], [place] [address] CBC WITHOUT DIFFon Erythrocyte distribution width (RBC) [Ratio] 11.1 % Low 11.7-15.0 [facility] Comment on above: Performed By: #### L IPS #### [facility] [address] [address] Hematocrit (Bld) [Volume fraction] 40.6 % Normal 36-44 [facility] Comment on above: Performed By: #### L IPS #### [facility] [address] [address] Hemoglobin (Bld) [Mass/Vol] 13.9 g/dL Normal 12.0-15.0 [facility] Comment on above: Performed By: #### L IPS #### [facility] [address] [address] MCH (RBC) [Entitic mass] 32.9 pg Normal 26-34 [facility] Comment on above: Performed By: #### L IPS #### [facility] [address] [address] MCHC (RBC) [Mass/Vol] 34.2 % Normal 31-37 [facility] Comment on above: Performed By: #### L IPS #### [facility] [address] [address] MCV (RBC) [Entitic vol] 96.2 fL Normal 80-100 [facility] Comment on above: Performed By: #### L IPS #### [facility] [address] [address] MEAN PLT VOL 8.8 CU Normal 7.0-12.6 [facility] Comment on above: Performed By: #### L IPS #### [facility] [address] [address] NRBC'S Normal 0 [facility] Comment on above: Result Comment: 0 Performed at [address] [address] Performed By: #### L IPS #### [address] [address] Platelets (Bld) [#/Vol] 218 10*3/uL Normal 150-450 [facility] Comment on above: Performed By: #### L IPS #### [address] [address] RBC (Bld) [#/Vol] 4.22 M/UL Normal 4.0-4.9 [facility] Comment on above: Performed By: #### L IPS #### [address] [address] RDW-SD 39.2 FL Normal 37.0-54.0 [facility] Comment on above: Performed By: #### L IPS #### [address] [address] WBC (Bld) [#/Vol] 5.4 10*3/uL Normal 4.5-11.0 [facility] Comment on above: Performed By: #### L IPS #### [address] [address] CMV AB IgGon 06-04-2019 CMV IgG Qual [facility] Comment on above: Result Comment: Posi tive Reference range: NEGATIVE Presence of detectable CMV IgG antibodies indicates either recent or past exposure to CMV. Performed By: #### L IPS #### [address] [address] Cytomegalovirus IgG [facility] Comment on above: Result Comment: 5.10 Unit: U/mL U/mL values are interpreted as follows: Negative: <0.60 Equivocal: >=0.60 to <0.70 Positive: >=0.70 The magnitude of the measured result above the cutoff is not indicative of the amount of antibody present. Performed at the [facility] unless otherwise noted. Performed By: #### L IPS #### [address] [address] CMV AB IgMon 06-04-2019 CMV IgM AB [facility] Comment on above: Result Comment: 10.7 Unit: AU/mL AU/mL values are interpreted as follows: Negative: <30.0 Equivocal: >=30.0 to <35.0 Positive: >=35.0 The magnitude of the measured result is not indicative of the amount of antibody present. Performed By: #### L IPS #### [address] [address] CMV IgM,Qual [facility] Comment on above: Result Comment: Nega tive Reference range: NEGATIVE Absence of detectable CMV IgM antibodies. If clinical exposure to hCMV is suspected despite a negative finding, a second sample should be collected and tested no less than one or two weeks later. Performed at the [facility] unless otherwise noted. Performed By: #### L IPS #### [address] [address] COMPREHENSIVE METABOLIC PANE Kavon 06-04-2019 ALT [Catalytic activity/Vol] High 5-40 [facility] Comment on above: Result Comment: 76 Performed at [address] [address] Performed By: #### L IPS #### [address] [address] Albumin [Mass/Vol] 4.1 g/dL Normal 3.5-5.0 [facility] Comment on above: Performed By: #### L IPS #### [address] [address] Albumin/Globulin [Mass ratio] 1.6 {ratio} Normal 1.5-3.0 [facility] Comment on above: Performed By: #### L IPS #### [facility] [address] [address] ALP [Catalytic activity/Vol] 218 U/L High 35-125 [facility] Comment on above: Performed By: #### L IPS #### [facility] [address] [place] [address] Anion gap [Moles/Vol] 14 mmol/L Normal 0-19 [facility] Comment on above: Performed By: #### L IPS #### [facility] [place] [address] [place] [address] AST [Catalytic activity/Vol] 15 U/L Normal 5-40 [facility] Comment on above: Performed By: #### L IPS #### [facility] [place] [address] [place] [address] Bilirubin [Mass/Vol] 0.3 mg/dL Normal 0.1-1.2 [facility] Comment on above: Performed By: #### L IPS #### [facility] [place] [address] [place] [address] Calcium [Mass/Vol] 9.1 mg/dL Normal 8.5-10.4 [facility] Comment on above: Performed By: #### L IPS #### [facility] [place] [address] [place] [address] Chloride [Moles/Vol] 106 mmol/L Normal 97-107 [facility] Comment on above: Performed By: #### L IPS #### [facility] [place] [address] [place] [address] CO2 [Moles/Vol] 20 mmol/L Low 24-31 [facility] Comment on above: Performed By: #### L IPS #### [facility] [place] [address] [place] [address] Creatinine [Mass/Vol] 0.7 mg/dL Normal 0.4-1.6 [facility] Comment on above: Performed By: #### L IPS #### [facility] [place] [address] [place] [address] Globulin (S) [Mass/Vol] 2.5 g/dL Normal 1.9-3.7 [facility] Comment on above: Performed By: #### L IPS #### [facility] [place] [address] [place] [address] Glucose [Mass/Vol] 99 mg/dL Normal 65-99 [facility] Comment on above: Result Comment: 99 Performed at [address] [place] [address] Performed By: #### L IPS #### [facility] [address] [address] Potassium [Moles/Vol] 3.5 mmol/L Normal 3.4-5.1 [facility] Comment on above: Performed By: #### L IPS #### [facility] [address] [address] Protein [Mass/Vol] 6.6 g/dL Normal 5.9-7.9 [facility] Comment on above: Performed By: #### L IPS #### [facility] [address] [address] Sodium [Moles/Vol] 139 mmol/L Normal 133-145 [facility] Comment on above: Performed By: #### L IPS #### [facility] [address] [address] Urea nitrogen [Mass/Vol] 6 mg/dL Low 8-25 [facility] Comment on above: Performed By: #### L IPS #### [facility] [address] [address] Urea nitrogen/Creatinine [Mass ratio] 8.6 RATIO Normal 8-21 [facility] Comment on above: Performed By: #### L IPS #### [facility] [place] [address] [place] [address] PROTHROMBIN TIMEon 9 INR Coag (PPP) [Relative time] High 0.86-1.16 [facility] Comment on above: Result Comment: 1.2 INR Theraputic Range: 2.0-3.5 Performed at [address] [place] [address] Performed By: #### L IPS #### [facility] [address] [address] PT Coag (PPP) [Time] HEPARIN Normal [facility] Comment on above: Performed By: #### L IPS #### [facility] [place] [address] [place] [address] PT Coag (PPP) [Time] 12.3 s Normal 9.3-12.7 [facility] Comment on above: Performed By: #### L IPS #### [address] [address] TOXOPLASMA AB, IGGon 019 Toxo IgG Qual [facility] Comment on above: Result Comment: Posi tive [...] postulated. Performed By: #### L IPS #### [address] [address] TOXOPLASMA IgG AB [facility] Comment on above: Result Comment: 43.2 Unit: [...] methods and reagent specificity. Performed at the [facility] unless otherwise noted. Performed By: #### L IPS #### [address] [address] CBC WITHOUT DIFFon 9 Erythrocyte distribution width (RBC) [Ratio] 11.3 % Low 11.7-15.0 [facility] Comment on above: Performed By: #### C SOLE CEMENTER #### [address] [address] Hematocrit (Bld) [Volume fraction] 39.1 % Normal 36-44 [facility] Comment on above: Performed By: #### C SOLE CEMENTER #### [address] [address] Hemoglobin (Bld) [Mass/Vol] 13.2 g/dL Normal 12.0-15.0 [facility] Comment on above: Performed By: #### C SOLE CEMENTER #### [address] [address] MCH (RBC) [Entitic mass] 33.4 pg Normal 26-34 [facility] Comment on above: Performed By: #### C SOLE CEMENTER #### [facility] [place] [address] [place] [address] MCHC (RBC) [Mass/Vol] 33.8 % Normal 31-37 [facility] Comment on above: Performed By: #### C SOLE CEMENTER #### [facility] [address] [place] [address] MCV (RBC) [Entitic vol] 99.0 fL Normal 80-100 [facility] Comment on above: Performed By: #### C SOLE CEMENTER #### [facility] [place] [address] [place] [address] MEAN PLT VOL 8.4 CU Normal 7.0-12.6 [facility] Comment on above: Performed By: #### C SOLE CEMENTER #### [place] [address] [place] [address] NRBC'S Normal 0 [facility] Comment on above: Result Comment: 0 Performed at [place] [address] [facility] [address] Performed By: #### C SOLE CEMENTER #### [place] [address] [place] [address] Platelets (Bld) [#/Vol] 189 10*3/uL Normal 150-450 [facility] Comment on above: Performed By: #### C SOLE CEMENTER #### [place] [address] [place] [address] RBC (Bld) [#/Vol] 3.95 M/UL Low 4.0-4.9 [facility] Comment on above: Performed By: #### C SOLE CEMENTER #### [facility] [address] [address] [place] [address] RDW-SD 41.1 FL Normal 37.0-54.0 [facility] Comment on above: Performed By: #### C SOLE CEMENTER #### [facility] [place] [address] [place] [address] WBC (Bld) [#/Vol] 4.4 10*3/uL Low 4.5-11.0 [facility] Comment on above: Performed By: #### C SOLE CEMENTER #### [facility] [place] [address] [place] [address] COMPREHENSIVE METABOLIC PANE Kavon 06-02-2019 Creatinine [Mass/Vol] 0.7 mg/dL Normal 0.4-1.6 [facility] Comment on above: Performed By: #### L IPS #### Main Laboratory [place] [address] [place] [address] Urea nitrogen [Mass/Vol] Low 8-25 [facility] Comment on above: Result Comment: 2 RESULT CHECKED Performed By: #### L IPS #### [facility] [place] [address] [place] [address] Urea nitrogen/Creatinine [Mass ratio] 2.9 RATIO Low 8-21 [facility] Comment on above: Performed By: #### L IPS #### [facility] [place] [address] [place] [address] Albumin [Mass/Vol] 4.0 g/dL Normal 3.5-5.0 [facility] Comment on above: Performed By: #### L IPS #### [facility] [place] [address] [place] [address] Albumin/Globulin [Mass ratio] 1.9 {ratio} Normal 1.5-3.0 [facility] Comment on above: Performed By: #### L IPS #### [facility] [place] [address] [place] [address] ALP [Catalytic activity/Vol] 240 U/L High 35-125 [facility] Comment on above: Performed By: #### L IPS #### [facility] [place] [address] [place] [address] ALT [Catalytic activity/Vol] High 5-40 [facility] Comment on above: Result Comment: 132 Performed at [place] [address] [place] [address] Performed By: #### L IPS #### [facility] [place] [address] [place] [address] Anion gap [Moles/Vol] 14 mmol/L Normal 0-19 [facility] Comment on above: Performed By: #### L IPS #### [facility] [place] [address] [place] [address] AST [Catalytic activity/Vol] 36 U/L Normal 5-40 [facility] Comment on above: Performed By: #### L IPS #### [facility] [address] [place] [address] Bilirubin [Mass/Vol] 0.3 mg/dL Normal 0.1-1.2 [facility] Comment on above: Performed By: #### L IPS #### [facility] [address] [place] [address] Calcium [Mass/Vol] 8.7 mg/dL Normal 8.5-10.4 [facility] Comment on above: Performed By: #### L IPS #### [facility] [address] [place] [address] Chloride [Moles/Vol] 111 mmol/L High 97-107 [facility] Comment on above: Performed By: #### L IPS #### [facility] [address] [place] [address] CO2 [Moles/Vol] 20 mmol/L Low 24-31 [facility] Comment on above: Performed By: #### L IPS #### [facility] [address] [place] [address] Globulin (S) [Mass/Vol] 2.1 g/dL Normal 1.9-3.7 [facility] Comment on above: Performed By: #### L IPS #### [facility] [address] [place] [address] Glucose [Mass/Vol] 108 mg/dL High 65-99 [facility] Comment on above: Performed By: #### L IPS #### [facility] [address] [place] [address] Potassium [Moles/Vol] 3.3 mmol/L Low 3.4-5.1 [facility] Comment on above: Performed By: #### L IPS #### [facility] [address] [place] [address] Protein [Mass/Vol] 6.1 g/dL Normal 5.9-7.9 [facility] Comment on above: Performed By: #### L IPS #### [facility] [place] [address] [place] [address] Sodium [Moles/Vol] 145 mmol/L Normal 133-145 [facility] Comment on above: Performed By: #### L IPS #### [place] [address] [place] [address] CBC WITHOUT DIFFon 9 Erythrocyte distribution width (RBC) [Ratio] 11.1 % Low 11.7-15.0 [facility] Comment on above: Performed By: #### C SOLE CEMENTER #### [place] [address] [place] [address] Hematocrit (Bld) [Volume fraction] 38.1 % Normal 36-44 [facility] Comment on above: Performed By: #### C SOLE CEMENTER #### [address] [address] Hemoglobin (Bld) [Mass/Vol] 12.7 g/dL Normal 12.0-15.0 [facility] Comment on above: Performed By: #### C SOLE CEMENTER #### [place] [address] [place] [address] MCH (RBC) [Entitic mass] 33.3 pg Normal 26-34 [facility] Comment on above: Performed By: #### C SOLE CEMENTER #### [address] [address] MCHC (RBC) [Mass/Vol] 33.3 % Normal 31-37 [facility] Comment on above: Performed By: #### C SOLE CEMENTER #### [place] [address] [place] [address] MCV (RBC) [Entitic vol] 100.0 fL Normal 80-100 [facility] Comment on above: Performed By: #### C SOLE CEMENTER #### [address] [address] MEAN PLT VOL 8.4 CU Normal 7.0-12.6 [facility] Comment on above: Performed By: #### C SOLE CEMENTER #### [place] [address] [place] [address] NRBC'S Normal 0 [facility] Comment on above: Result Comment: 0 Performed at [address] [address] Performed By: #### C SOLE CEMENTER #### [facility] [place] [address] [address] [place] [address] Platelets (Bld) [#/Vol] 196 10*3/uL Normal 150-450 [facility] Comment on above: Performed By: #### C SOLE CEMENTER #### [facility] [place] [address] [address] [place] [address] RBC (Bld) [#/Vol] 3.81 M/UL Low 4.0-4.9 [facility] Comment on above: Performed By: #### C SOLE CEMENTER #### [facility] [place] [address] [place] [address] RDW-SD 40.8 FL Normal 37.0-54.0 [facility] Comment on above: Performed By: #### C SOLE CEMENTER #### [facility] [place] [address] [address] WBC (Bld) [#/Vol] 3.8 10*3/uL Low 4.5-11.0 [facility] Comment on above: Performed By: #### C SOLE CEMENTER #### [facility] [place] [address] [place] [address] COMPREHENSIVE METABOLIC PANE Kavon 06-01-2019 Albumin [Mass/Vol] 3.7 g/dL Normal 3.5-5.0 [facility] Comment on above: Performed By: #### C SOLE CEMENTER #### [facility] [place] [address] [place] [address] Albumin/Globulin [Mass ratio] 1.8 {ratio} Normal 1.5-3.0 [facility] Comment on above: Performed By: #### C SOLE CEMENTER #### [facility] [place] [address] [address] ALP [Catalytic activity/Vol] 146 U/L High 35-125 [facility] Comment on above: Performed By: #### C SOLE CEMENTER #### [facility] [place] [address] [place] [address] ALT [Catalytic activity/Vol] High 5-40 [facility] Comment on above: Result Comment: 151 Performed at [place] [address] [place] [address] Performed By: #### C SOLE CEMENTER #### [facility] [address] [place] [address] Anion gap [Moles/Vol] 11 mmol/L Normal 0-19 [facility] Comment on above: Performed By: #### C SOLE CEMENTER #### [facility] [address] [place] [address] AST [Catalytic activity/Vol] 39 U/L Normal 5-40 [facility] Comment on above: Performed By: #### C SOLE CEMENTER #### [facility] [address] [place] [address] Bilirubin [Mass/Vol] 0.3 mg/dL Normal 0.1-1.2 [facility] Comment on above: Performed By: #### C SOLE CEMENTER #### [facility] [place] [address] [place] [address] Calcium [Mass/Vol] 8.6 mg/dL Normal 8.5-10.4 [facility] Comment on above: Performed By: #### C SOLE CEMENTER #### [facility] [address] [place] [address] Chloride [Moles/Vol] 112 mmol/L High 97-107 [facility] Comment on above: Performed By: #### C SOLE CEMENTER #### [facility] [place] [address] [place] [address] CO2 [Moles/Vol] 20 mmol/L Low 24-31 [facility] Comment on above: Performed By: #### C SOLE CEMENTER #### [facility] [place] [address] [place] [address] Creatinine [Mass/Vol] 0.7 mg/dL Normal 0.4-1.6 [facility] Comment on above: Performed By: #### C SOLE CEMENTER #### [facility] [address] [place] [address] Globulin (S) [Mass/Vol] 2.1 g/dL Normal 1.9-3.7 [facility] Comment on above: Performed By: #### C SOLE CEMENTER #### [facility] [address] [place] [address] Glucose [Mass/Vol] 105 mg/dL High 65-99 [facility] Comment on above: Performed By: #### C SOLE CEMENTER #### [facility] [address] [place] [address] Potassium [Moles/Vol] 3.5 mmol/L Normal 3.4-5.1 [facility] Comment on above: Performed By: #### C SOLE CEMENTER #### [facility] [address] [place] [address] Protein [Mass/Vol] 5.8 g/dL Low 5.9-7.9 [facility] Comment on above: Performed By: #### C SOLE CEMENTER #### [facility] [address] [place] [address] Sodium [Moles/Vol] 143 mmol/L Normal 133-145 [facility] Comment on above: Performed By: #### C SOLE CEMENTER #### [facility] [address] [place] [address] Urea nitrogen [Mass/Vol] 3 mg/dL Low 8-25 [facility] Comment on above: Performed By: #### C SOLE CEMENTER #### [facility] [place] [address] [place] [address] Urea nitrogen/Creatinine [Mass ratio] 4.3 RATIO Low 8-21 [facility] Comment on above: Performed By: #### C SOLE CEMENTER #### [place] [address] [place] [address] GUIDED NEEDLE PLACEMENTon GUIDED NEEDLE PLACEMENT ADDEND *FINAL Date of Service: 06/01/2019 13:28 Adm #: [id number] Reading Dr:KAI SAINZ Signoff Dr: KAI SAINZ PROCEDURE: GUIDED NEEDLE PLACEMENT - [facility] 2519 REASON FOR EXAM: ELEVATED LFTS THIS [...] Physician: KAI SAINZ MD Original Transcribed by/Date: [facility] Jun 01 2019 4:31P Original Electronically Signed by/Date: KAI SAINZ MD Jun 01 2019 4:31P Addendum Interpreting Physician: KAI SAINZ MD Addendum Transcribed by/Date: [facility] Jun 08 2019 8:21A Addendum Electronically Signed by/Date: KAI SAINZ MD Jun 08 2019 8:21A [facility] OVA AND PARASITE SCR,GIARDIA on 06-01-2019 OVA AND PARASITE SCR,GIARDIA Specimen source XXX: STOOL Performed at [place] [address] Service Cmnt XXX-Imp: NONE Performed at [place] [address] Microscopic observation: NEGATIVE FOR GIARDIA [place] [address] : FINAL 06/01/2019 [facility] Comment on above: Performed By: #### C SOLE CEMENTER #### [place] [address] PROTHROMBIN TIMEon 9 INR Coag (PPP) [Relative time] High 0.86-1.16 [facility] Comment on above: Result Comment: 1.3 INR Theraputic Range: 2.0-3.5 Performed at [place] [address] Performed By: #### C SOLE CEMENTER #### [place] [address] PT Coag (PPP) [Time] 14.0 s High 9.3-12.7 [facility] Comment on above: Performed By: #### C SOLE CEMENTER #### [address] [address] PT Coag (PPP) [Time] COUM+HEP [facility] Comment on above: Performed By: #### C SOLE CEMENTER #### [address] [address] [facility] 06-01-2019 [facility] Patient Name: DOROTHEA RUTLEDGE MR#: [id number] Specimen #[id number] Source: Ultrasound guided core needle biopsy left [...] Electronically Signed Out By THEODORE PAEZ D.O. [facility] Comment on above: Performed By: #### L IPS #### [address] [address] COMPREHENSIVE METABOLIC PANE Kavon 05-31-2019 Albumin [Mass/Vol] 3.8 g/dL Normal 3.5-5.0 [facility] Comment on above: Performed By: #### C SOLE CEMENTER #### [address] [address] Albumin/Globulin [Mass ratio] 1.9 {ratio} Normal 1.5-3.0 [facility] Comment on above: Performed By: #### C SOLE CEMENTER #### [address] [address] ALP [Catalytic activity/Vol] 158 U/L High 35-125 [facility] Comment on above: Performed By: #### C SOLE CEMENTER #### Main Laboratory [facility] [address] [place] [address] ALT [Catalytic activity/Vol] High 5-40 [facility] Comment on above: Result Comment: 180 Performed at [facility] [address] [place] [address] Performed By: #### C SOLE CEMENTER #### [facility] [place] [address] [place] [address] Anion gap [Moles/Vol] 13 mmol/L Normal 0-19 [facility] Comment on above: Performed By: #### C SOLE CEMENTER #### [facility] [place] [address] [place] [address] AST [Catalytic activity/Vol] 42 U/L High 5-40 [facility] Comment on above: Performed By: #### C SOLE CEMENTER #### [facility] [place] [address] [place] [address] Bilirubin [Mass/Vol] 0.3 mg/dL Normal 0.1-1.2 [facility] Comment on above: Performed By: #### C SOLE CEMENTER #### [facility] [place] [address] [place] [address] Calcium [Mass/Vol] 8.7 mg/dL Normal 8.5-10.4 [facility] Comment on above: Performed By: #### C SOLE CEMENTER #### [facility] [place] [address] [place] [address] Chloride [Moles/Vol] 109 mmol/L High 97-107 [facility] Comment on above: Performed By: #### C SOLE CEMENTER #### [facility] [place] [address] [place] [address] CO2 [Moles/Vol] 22 mmol/L Low 24-31 [facility] Comment on above: Performed By: #### C SOLE CEMENTER #### [facility] [place] [address] [place] [address] Creatinine [Mass/Vol] 0.8 mg/dL Normal 0.4-1.6 [facility] Comment on above: Performed By: #### C SOLE CEMENTER #### [facility] [place] [address] [place] [address] Globulin (S) [Mass/Vol] 2.0 g/dL Normal 1.9-3.7 [facility] Comment on above: Performed By: #### C SOLE CEMENTER #### [facility] [address] [address] Glucose [Mass/Vol] 101 mg/dL High 65-99 [facility] Comment on above: Performed By: #### C SOLE CEMENTER #### [facility] [address] [address] Potassium [Moles/Vol] 3.6 mmol/L Normal 3.4-5.1 [facility] Comment on above: Performed By: #### C SOLE CEMENTER #### [facility] [address] [address] Protein [Mass/Vol] 5.8 g/dL Low 5.9-7.9 [facility] Comment on above: Performed By: #### C SOLE CEMENTER #### [facility] [address] [address] Sodium [Moles/Vol] 143 mmol/L Normal 133-145 [facility] Comment on above: Performed By: #### C SOLE CEMENTER #### [facility] [address] [address] Urea nitrogen [Mass/Vol] 4 mg/dL Low 8-25 [facility] Comment on above: Performed By: #### C SOLE CEMENTER #### [facility] [address] [address] Urea nitrogen/Creatinine [Mass ratio] 5.0 RATIO Low 8-21 [facility] Comment on above: Performed By: #### C SOLE CEMENTER #### [facility] [address] [place] [address] FECALon 05-[address] FECAL Specimen source XXX : STOOL Performed at [address] [place] [address] Service Cmnt XXX-Imp: NONE Performed at [address] [place] [address] : NO WBC SEEN Performed at [address] [place] [address] : FINAL 05/31/2019 [facility] Comment on above: Performed By: #### C SOLE CEMENTER #### [facility] [place] [address] [place] [address] PROTHROMBIN TIMEon 9 INR Coag (PPP) [Relative time] High 0.86-1.16 [facility] Comment on above: Result Comment: 1.6 INR Theraputic Range: 2.0-3.5 Performed at [address] [address] Performed By: #### C SOLE CEMENTER #### [facility] [address] [address] PT Coag (PPP) [Time] 17.0 s High 9.3-12.7 [facility] Comment on above: Performed By: #### C SOLE CEMENTER #### [facility] [address] [address] PT Coag (PPP) [Time] COUM+HEP Normal [facility] Comment on above: Performed By: #### C SOLE CEMENTER #### [facility] [address] [address] ADD ON LAB REQUESTon 019 ADD ON REQUEST Normal [facility] Comment on above: Result Comment: ADDE D UNABLE TO ADD ON PTB Performed at [address] [address] Performed By: #### C BCN #### [address] [address] ADD ON TESTS NO BLUE TOP AVAILABLE Normal [facility] Comment on above: Performed By: #### C BCN #### [facility] [address] [address] CBC WITHOUT DIFFon 9 Erythrocyte distribution width (RBC) [Ratio] 11.4 % Low 11.7-15.0 [facility] Comment on above: Performed By: #### C BCN #### [facility] [place] [address] [place] [address] Hematocrit (Bld) [Volume fraction] 36.6 % Normal 36-44 [facility] Comment on above: Performed By: #### C BCN #### [facility] [address] [address] Hemoglobin (Bld) [Mass/Vol] 12.3 g/dL Normal 12.0-15.0 [facility] Comment on above: Performed By: #### C BCN #### [facility] [place] [address] [place] [address] MCH (RBC) [Entitic mass] 33.9 pg Normal 26-34 [facility] Comment on above: Performed By: #### C BCN #### [facility] [place] [address] [place] [address] MCHC (RBC) [Mass/Vol] 33.6 % Normal 31-37 [facility] Comment on above: Performed By: #### C BCN #### [facility] [place] [address] [place] [address] MCV (RBC) [Entitic vol] 100.8 fL High 80-100 [facility] Comment on above: Performed By: #### C BCN #### [facility] [place] [address] [place] [address] MEAN PLT VOL 8.6 CU Normal 7.0-12.6 [facility] Comment on above: Performed By: #### C BCN #### [facility] [place] [address] [place] [address] NRBC'S Normal 0 [facility] Comment on above: Result Comment: 0 Performed at [place] [address] [place] [address] Performed By: #### C BCN #### [facility] [place] [address] [place] [address] Platelets (Bld) [#/Vol] 196 10*3/uL Normal 150-450 [facility] Comment on above: Performed By: #### C BCN #### [facility] [place] [address] [place] [address] RBC (Bld) [#/Vol] 3.63 M/UL Low 4.0-4.9 [facility] Comment on above: Performed By: #### C BCN #### [facility] [place] [address] [place] [address] RDW-SD 42.0 FL Normal 37.0-54.0 [facility] Comment on above: Performed By: #### C BCN #### [facility] [address] [address] WBC (Bld) [#/Vol] 3.1 10*3/uL Low 4.5-11.0 [facility] Comment on above: Performed By: #### C BCN #### [facility] [address] [address] CDIF TOX. DETECTION,EIAon CDIF TOX. DETECTION,EIA Normal [facility] Comment on above: Result Comment: NEGA TIVE TEST: C. DIFFICILE TOXIN NEGATIVE BY EIA. NEGATIVE RESULT REQUIRES CLINICAL INTERPRETATION. RESULT MAY INDICATE COLONIZATION OR MAY REPRESENT A CLINICAL FALSE NEGATIVE IN THE PRESENCE OF TRUE INFECTION. IF NNECESSARY, CONSIDER GI AND/OR ID CONSULTATION. RESULTS CALLED TO MARTHA ECKERT 05/30/19 1330 Performed at [address] [address] Performed By: #### C BCN #### [address] [address] COMPREHENSIVE METABOLIC PANE Kavon 05-30-2019 Albumin [Mass/Vol] 3.8 g/dL Normal 3.5-5.0 [facility] Comment on above: Performed By: #### C BCN #### [address] [address] Albumin/Globulin [Mass ratio] 1.8 {ratio} Normal 1.5-3.0 [facility] Comment on above: Performed By: #### C BCN #### [facility] [address] [address] ALP [Catalytic activity/Vol] 156 U/L High 35-125 [facility] Comment on above: Performed By: #### C BCN #### [facility] [address] [address] ALT [Catalytic activity/Vol] High 5-40 [facility] Comment on above: Result Comment: 210 Performed at [address] [address] Performed By: #### C BCN #### [facility] [place] [address] [place] [address] Anion gap [Moles/Vol] 10 mmol/L Normal 0-19 [facility] Comment on above: Performed By: #### C BCN #### [facility] [address] [place] [address] AST [Catalytic activity/Vol] 44 U/L High 5-40 [facility] Comment on above: Performed By: #### C BCN #### [facility] [address] [place] [address] Bilirubin [Mass/Vol] 0.3 mg/dL Normal 0.1-1.2 [facility] Comment on above: Performed By: #### C BCN #### [facility] [address] [place] [address] Calcium [Mass/Vol] 8.4 mg/dL Low 8.5-10.4 [facility] Comment on above: Performed By: #### C BCN #### [facility] [place] [address] [place] [address] Chloride [Moles/Vol] 111 mmol/L High 97-107 [facility] Comment on above: Performed By: #### C BCN #### [facility] [place] [address] [place] [address] CO2 [Moles/Vol] 20 mmol/L Low 24-31 [facility] Comment on above: Performed By: #### C BCN #### [facility] [place] [place] [address] Creatinine [Mass/Vol] 0.8 mg/dL Normal 0.4-1.6 [facility] Comment on above: Performed By: #### C BCN #### [facility] [address] [place] [address] Globulin (S) [Mass/Vol] 2.1 g/dL Normal 1.9-3.7 [facility] Comment on above: Performed By: #### C BCN #### [facility] [address] [place] [address] Glucose [Mass/Vol] 91 mg/dL Normal 65-99 [facility] Comment on above: Performed By: #### C BCN #### [facility] [address] [place] [address] Potassium [Moles/Vol] 3.8 mmol/L Normal 3.4-5.1 [facility] Comment on above: Performed By: #### C BCN #### [facility] [address] [place] [address] Protein [Mass/Vol] 5.9 g/dL Normal 5.9-7.9 [facility] Comment on above: Performed By: #### C BCN #### [facility] [address] [place] [address] Sodium [Moles/Vol] 141 mmol/L Normal 133-145 [facility] Comment on above: Performed By: #### C BCN #### [facility] [address] [place] [address] Urea nitrogen [Mass/Vol] 3 mg/dL Low 8-25 [facility] Comment on above: Performed By: #### C BCN #### [facility] [place] [address] [place] [address] Urea nitrogen/Creatinine [Mass ratio] 3.8 RATIO Low 8-21 [facility] Comment on above: Performed By: #### C BCN #### [facility] [place] [address] [place] [address] PROTHROMBIN TIMEon 9 INR Coag (PPP) [Relative time] High 0.86-1.16 [facility] Comment on above: Result Comment: 1.8 INR Theraputic Range: 2.0-3.5 Performed at [place] [address] [place] [address] Performed By: #### C SOLE CEMENTER #### [facility] [address] [place] [address] PT Coag (PPP) [Time] Normal [facility] Comment on above: Result Comment: PREV IOUSLY ON HEPARIN PREVIOUSLY ON COUMADIN Performed By: #### C SOLE CEMENTER #### [facility] [address] [place] [address] PT Coag (PPP) [Time] 18.1 s High 9.3-12.7 [facility] Comment on above: Performed By: #### C SOLE CEMENTER #### [facility] [address] [address] [place] [address] CBC WITHOUT DIFFon 9 Erythrocyte distribution width (RBC) [Ratio] 11.4 % Low 11.7-15.0 [facility] Comment on above: Performed By: #### C BCN #### [facility] [address] [address] [place] [address] Hematocrit (Bld) [Volume fraction] 37.0 % Normal 36-44 [facility] Comment on above: Performed By: #### C BCN #### [facility] [address] [address] [place] [address] Hemoglobin (Bld) [Mass/Vol] 12.3 g/dL Normal 12.0-15.0 [facility] Comment on above: Performed By: #### C BCN #### [facility] [address] [address] [place] [address] MCH (RBC) [Entitic mass] 33.1 pg Normal 26-34 [facility] Comment on above: Performed By: #### C BCN #### [facility] [address] [address] [place] [address] MCHC (RBC) [Mass/Vol] 33.2 % Normal 31-37 [facility] Comment on above: Performed By: #### C BCN #### [facility] [address] [address] [place] [address] MCV (RBC) [Entitic vol] 99.5 fL Normal 80-100 [facility] Comment on above: Performed By: #### C BCN #### [facility] [address] [address] [place] [address] MEAN PLT VOL 8.7 CU Normal 7.0-12.6 [facility] Comment on above: Performed By: #### C BCN #### [facility] [address] [address] [place] [address] NRBC'S Normal 0 [facility] Comment on above: Result Comment: 0 Performed at [address] [place] [address] Performed By: #### C BCN #### [facility] [address] [place] [address] Platelets (Bld) [#/Vol] 220 10*3/uL Normal 150-450 [facility] Comment on above: Performed By: #### C BCN #### [facility] [place] [place] [address] RBC (Bld) [#/Vol] 3.72 M/UL Low 4.0-4.9 [facility] Comment on above: Performed By: #### C BCN #### [facility] [address] [address] [place] [address] RDW-SD 41.5 FL Normal 37.0-54.0 [facility] Comment on above: Performed By: #### C BCN #### [facility] [address] [address] [place] [address] WBC (Bld) [#/Vol] 3.8 10*3/uL Low 4.5-11.0 [facility] Comment on above: Performed By: #### C BCN #### [facility] [address] [place] [place] [address] COMPREHENSIVE METABOLIC PANE Kavon 05-29-2019 Albumin [Mass/Vol] 3.4 g/dL Low 3.5-5.0 [facility] Comment on above: Performed By: #### C BCN #### [address] [place] [address] Albumin/Globulin [Mass ratio] 1.5 {ratio} Normal 1.5-3.0 [facility] Comment on above: Performed By: #### C BCN #### [address] [place] [address] ALP [Catalytic activity/Vol] 158 U/L High 35-125 [facility] Comment on above: Performed By: #### C BCN #### [facility] [place] [place] [address] ALT [Catalytic activity/Vol] High 5-40 [facility] Comment on above: Result Comment: 264 SAMPLE SLIGHTLY HEMOLYZED, RESULTS MAY BE AFFECTED Performed at [place] [address] [place] [address] Performed By: #### C BCN #### [facility] [address] [place] [address] Anion gap [Moles/Vol] 12 mmol/L Normal 0-19 [facility] Comment on above: Performed By: #### C BCN #### [facility] [address] [place] [address] AST [Catalytic activity/Vol] High 5-40 [facility] Comment on above: Result Comment: 56 SAMPLE SLIGHTLY HEMOLYZED, RESULTS MAY BE AFFECTED Performed By: #### C BCN #### [facility] [address] [place] [place] [address] Bilirubin [Mass/Vol] 0.3 mg/dL Normal 0.1-1.2 [facility] Comment on above: Performed By: #### C BCN #### [facility] [address] [place] [address] Calcium [Mass/Vol] 8.4 mg/dL Low 8.5-10.4 [facility] Comment on above: Performed By: #### C BCN #### [facility] [address] [place] [place] [address] Chloride [Moles/Vol] 112 mmol/L High 97-107 [facility] Comment on above: Performed By: #### C BCN #### [facility] [address] [place] [place] [address] CO2 [Moles/Vol] 18 mmol/L Low 24-31 [facility] Comment on above: Performed By: #### C BCN #### [facility] [address] [place] [place] [address] Creatinine [Mass/Vol] 0.7 mg/dL Normal 0.4-1.6 [facility] Comment on above: Performed By: #### C BCN #### [facility] [address] [place] [place] [address] Globulin (S) [Mass/Vol] 2.2 g/dL Normal 1.9-3.7 [facility] Comment on above: Performed By: #### C BCN #### [facility] [address] [place] [place] [address] Glucose [Mass/Vol] 97 mg/dL Normal 65-99 [facility] Comment on above: Performed By: #### C BCN #### [facility] [address] [place] [address] [place] [address] Potassium [Moles/Vol] Normal 3.4-5.1 [facility] Comment on above: Result Comment: 4.1 SAMPLE SLIGHTLY HEMOLYZED, RESULTS MAY BE AFFECTED Performed By: #### C BCN #### [address] [address] [place] [address] Protein [Mass/Vol] 5.6 g/dL Low 5.9-7.9 [facility] Comment on above: Performed By: #### C BCN #### [place] [place] [address] Sodium [Moles/Vol] 141 mmol/L Normal 133-145 [facility] Comment on above: Performed By: #### C BCN #### [address] [place] [place] [address] Urea nitrogen [Mass/Vol] 4 mg/dL Low 8-25 [facility] Comment on above: Performed By: #### C BCN #### [address] [place] [place] [address] Urea nitrogen/Creatinine [Mass ratio] 5.7 RATIO Low 8-21 [facility] Comment on above: Performed By: #### C BCN #### [address] [address] [place] [address] PROTHROMBIN TIMEon 9 INR Coag (PPP) [Relative time] High 0.86-1.16 [facility] Comment on above: Result Comment: 1.2 INR Theraputic Range: 2.0-3.5 Performed at [place] [address] [place] [address] Performed By: #### C BCN #### [place] [place] [address] PT Coag (PPP) [Time] 13.0 s High 9.3-12.7 [facility] Comment on above: Performed By: #### C BCN #### [address] [place] [address] PT Coag (PPP) [Time] COUM+HEP Normal [facility] Comment on above: Performed By: #### C BCN #### [address] [address] [place] [address] ADD ON LAB REQUESTon 019 ADD ON REQUEST Normal [facility] Comment on above: Result Comment: ADDN OK Performed at [place] [address] [facility] [address] Performed By: #### A DDON #### [address] [place] [address] [place] [address] ADD ON TESTS PTB TO BE COLLECTED Normal [facility] Comment on above: Performed By: #### A DDON #### [address] [address] [place] [address] AMYLASEon 05-28-2019 Amylase [Catalytic activity/Vol] Normal 28-100 [facility] Comment on above: Result Comment: 36 Performed at [place] [address] [place] [address] Performed By: #### A MYL #### [address] [address] [place] [address] CBC WITHOUT DIFFon 9 Erythrocyte distribution width (RBC) [Ratio] 11.5 % Low 11.7-15.0 [facility] Comment on above: Performed By: #### C BCN #### [address] [address] [place] [address] Hematocrit (Bld) [Volume fraction] 37.0 % Normal 36-44 [facility] Comment on above: Performed By: #### C BCN #### [address] [place] [address] Hemoglobin (Bld) [Mass/Vol] 12.6 g/dL Normal 12.0-15.0 [facility] Comment on above: Performed By: #### C BCN #### [address] [place] [address] MCH (RBC) [Entitic mass] 33.9 pg Normal 26-34 [facility] Comment on above: Performed By: #### C BCN #### [address] [place] [address] MCHC (RBC) [Mass/Vol] 34.1 % Normal 31-37 [facility] Comment on above: Performed By: #### C BCN #### [facility] [address] [place] [address] MCV (RBC) [Entitic vol] 99.5 fL Normal 80-100 [facility] Comment on above: Performed By: #### C BCN #### [facility] [address] [place] [address] MEAN PLT VOL 8.7 CU Normal 7.0-12.6 [facility] Comment on above: Performed By: #### C BCN #### [facility] [address] [place] [address] NRBC'S Normal 0 [facility] Comment on above: Result Comment: 0 [facility] [place] [address] [facility] [address] Performed By: #### C BCN #### [facility] [address] [place] [place] [address] Platelets (Bld) [#/Vol] 198 10*3/uL Normal 150-450 [facility] Comment on above: Performed By: #### C BCN #### [facility] [address] [place] [address] RBC (Bld) [#/Vol] 3.72 M/UL Low 4.0-4.9 [facility] Comment on above: Performed By: #### C BCN #### [facility] [address] [place] [address] RDW-SD 42.0 FL Normal 37.0-54.0 [facility] Comment on above: Performed By: #### C BCN #### [facility] [address] [place] [place] [address] WBC (Bld) [#/Vol] 3.4 10*3/uL Low 4.5-11.0 [facility] Comment on above: Performed By: #### C BCN #### [facility] [address] [place] [place] [address] COMPREHENSIVE METABOLIC PANE Kavon 05-28-2019 Albumin [Mass/Vol] 3.7 g/dL Normal 3.5-5.0 [facility] Comment on above: Performed By: #### C BCN #### [facility] [address] [place] [place] [address] Albumin/Globulin [Mass ratio] 1.8 {ratio} Normal 1.5-3.0 [facility] Comment on above: Performed By: #### C BCN #### [facility] [address] [place] [place] [address] ALP [Catalytic activity/Vol] 178 U/L High 35-125 [facility] Comment on above: Performed By: #### C BCN #### [facility] [address] [place] [place] [address] ALT [Catalytic activity/Vol] High 5-40 [facility] Comment on above: Result Comment: 364 Performed at [address] [place] [address] [place] [address] Performed By: #### C BCN #### [facility] [address] [place] [place] [address] Anion gap [Moles/Vol] 13 mmol/L Normal 0-19 [facility] Comment on above: Performed By: #### C BCN #### [facility] [address] [place] [place] [address] AST [Catalytic activity/Vol] 88 U/L High 5-40 [facility] Comment on above: Performed By: #### C BCN #### [facility] [place] [address] [place] [address] Bilirubin [Mass/Vol] 0.5 mg/dL Normal 0.1-1.2 [facility] Comment on above: Performed By: #### C BCN #### [facility] [address] [place] [place] [address] Calcium [Mass/Vol] 8.4 mg/dL Low 8.5-10.4 [facility] Comment on above: Performed By: #### C BCN #### [facility] [address] [place] [place] [address] Chloride [Moles/Vol] 108 mmol/L High 97-107 [facility] Comment on above: Performed By: #### C BCN #### [facility] [address] [place] [address] CO2 [Moles/Vol] 18 mmol/L Low 24-31 [facility] Comment on above: Performed By: #### C BCN #### [facility] [address] [address] Creatinine [Mass/Vol] 0.7 mg/dL Normal 0.4-1.6 [facility] Comment on above: Performed By: #### C BCN #### [facility] [place] [address] [place] [address] Globulin (S) [Mass/Vol] 2.1 g/dL Normal 1.9-3.7 [facility] Comment on above: Performed By: #### C BCN #### [address] [place] [address] [place] [address] Glucose [Mass/Vol] 95 mg/dL Normal 65-99 [facility] Comment on above: Performed By: #### C BCN #### [place] [address] [place] [address] Potassium [Moles/Vol] 3.8 mmol/L Normal 3.4-5.1 [facility] Comment on above: Performed By: #### C BCN #### [place] [address] [place] [address] Protein [Mass/Vol] 5.8 g/dL Low 5.9-7.9 [facility] Comment on above: Performed By: #### C BCN #### [facility] [address] [place] [address] Sodium [Moles/Vol] 139 mmol/L Normal 133-145 [facility] Comment on above: Performed By: #### C BCN #### [facility] [address] [place] [address] Urea nitrogen [Mass/Vol] 4 mg/dL Low 8-25 [facility] Comment on above: Performed By: #### C BCN #### [facility] [address] [place] [address] [place] [address] Urea nitrogen/Creatinine [Mass ratio] 5.7 RATIO Low 8-21 [facility] Comment on above: Performed By: #### C BCN #### [facility] [address] [place] [place] [address] LIPASE PSon 05-28-2019 LIPASE PS Low 16-63 [facility] Comment on above: Result Comment: 15 [facility] [place] [address] [facility] [address] Performed By: #### C BCN #### [facility] [address] [place] [place] [address] PROTHROMBIN TIMEon 9 INR Coag (PPP) [Relative time] High 0.86-1.16 [facility] Comment on above: Result Comment: 1.2 INR Theraputic Range: 2.0-3.5 Performed at [place] [address] [facility] [address] Performed By: #### C BCN #### [facility] [address] [place] [place] [address] PT Coag (PPP) [Time] 12.5 s Normal 9.3-12.7 [facility] Comment on above: Performed By: #### C BCN #### [facility] [address] [place] [place] [address] PT Coag (PPP) [Time] HISTORY OF COUMADIN Normal [facility] Comment on above: Performed By: #### C BCN #### [facility] [address] [place] [address] [place] [address] CBC WITHOUT DIFFon 9 Erythrocyte distribution width (RBC) [Ratio] 11.4 % Low 11.7-15.0 [facility] Comment on above: Performed By: #### C BCN #### [facility] [address] [place] [address] [place] [address] Hematocrit (Bld) [Volume fraction] 37.9 % Normal 36-44 [facility] Comment on above: Performed By: #### C BCN #### [facility] [address] [place] [place] [address] Hemoglobin (Bld) [Mass/Vol] 12.8 g/dL Normal 12.0-15.0 [facility] Comment on above: Performed By: #### C BCN #### [facility] [address] [place] [place] [address] MCH (RBC) [Entitic mass] 33.5 pg Normal 26-34 [facility] Comment on above: Performed By: #### C BCN #### [facility] [place] [address] [place] [address] MCHC (RBC) [Mass/Vol] 33.8 % Normal 31-37 [facility] Comment on above: Performed By: #### C BCN #### [facility] [address] [place] [place] [address] MCV (RBC) [Entitic vol] 99.2 fL Normal 80-100 [facility] Comment on above: Performed By: #### C BCN #### [address] [place] [place] [address] MEAN PLT VOL 8.7 CU Normal 7.0-12.6 [facility] Comment on above: Performed By: #### C BCN #### [address] [place] [place] [address] NRBC'S Normal 0 [facility] Comment on above: Result Comment: 0 Performed at [place] [address] [place] [address] Performed By: #### C BCN #### [place] [address] [place] [address] Platelets (Bld) [#/Vol] 175 10*3/uL Normal 150-450 [facility] Comment on above: Performed By: #### C BCN #### [facility] [address] [place] [address] RBC (Bld) [#/Vol] 3.82 M/UL Low 4.0-4.9 [facility] Comment on above: Performed By: #### C BCN #### [facility] [place] [address] [place] [address] RDW-SD 41.3 FL Normal 37.0-54.0 [facility] Comment on above: Performed By: #### C BCN #### [facility] [address] [address] [place] [address] WBC (Bld) [#/Vol] 4.3 10*3/uL Low 4.5-11.0 [facility] Comment on above: Performed By: #### C BCN #### [facility] [address] [address] [place] [address] CBC with Diffon 05-27-2019 AB IMMATURE NEUT 0.01 K/UL Normal 0.0-0.1 [facility] Comment on above: Performed By: #### C BCD #### [facility] [address] [address] [place] [address] ABS BASO 0.04 K/UL Normal 0.00-0.22 [facility] Comment on above: Performed By: #### C BCD #### [facility] [facility] [address] [address] ABS EOS 0.12 K/UL Normal 0-0.45 [facility] Comment on above: Performed By: #### C BCD #### [facility] [address] [address] ABS NEUTROPHILS 1.61 K/UL Low 1.8-7.7 [facility] Comment on above: Performed By: #### C BCD #### [facility] [address] [address] ABS.NEUT.CALCULATED Normal [facility] [place] Comment on above: Result Comment: 1.61 Performed at [address] [address] Performed By: #### C BCD #### [address] [address] Basophils/100 WBC (Bld) 0.90 % Normal 0-1 [facility] [place] Comment on above: Performed By: #### C BCD #### [facility] [address] [address] DIFF TYPE Normal [facility] [place] Comment on above: Result Comment: AUTO DIFF SMEAR REVIEWED AND FOUND CONSISTENT WITH AUTOMATED DIFFERENTIAL Performed By: #### C BCD #### [facility] [address] [address] Eosinophils/100 WBC (Bld) 2.80 % Normal 0-3 [facility] [place] Comment on above: Performed By: #### C BCD #### [facility] [address] [place] [address] Erythrocyte distribution width (RBC) [Ratio] 11.6 % Low 11.7-15.0 [facility] [place] Comment on above: Performed By: #### C BCD #### [facility] [address] [place] [address] Hematocrit (Bld) [Volume fraction] 37.9 % Normal 36-44 [facility] [place] Comment on above: Performed By: #### C BCD #### [facility] [address] [place] [address] Hemoglobin (Bld) [Mass/Vol] 13.2 g/dL Normal 12.0-15.0 [facility] [place] Comment on above: Performed By: #### C BCD #### [address] [place] [address] Lymphocytes (Bld) [#/Vol] 2.08 10*3/uL Normal 1.2-3.2 [facility] Comment on above: Performed By: #### C BCD #### [facility] [address] [place] [address] Lymphocytes/100 WBC (Bld) 49.30 % High 20-40 [facility] Comment on above: Performed By: #### C BCD #### [facility] [address] [place] [address] MCH (RBC) [Entitic mass] 33.7 pg Normal 26-34 [facility] [place] Comment on above: Performed By: #### C BCD #### [facility] [address] [place] [address] MCHC (RBC) [Mass/Vol] 34.8 % Normal 31-37 [facility] Comment on above: Performed By: #### C BCD #### [facility] [address] [place] [address] MCV (RBC) [Entitic vol] 96.7 fL Normal 80-100 [facility] [place] Comment on above: Performed By: #### C BCD #### [address] [place] [address] MEAN PLT VOL 8.5 CU Normal 7.0-12.6 [facility] [place] Comment on above: Performed By: #### C BCD #### [address] [address] [place] [address] Monocytes (Bld) [#/Vol] 0.36 10*3/uL Normal 0-0.8 [facility] [place] Comment on above: Performed By: #### C BCD #### [address] [address] [place] [address] Monocytes/100 WBC (Bld) 8.50 % High 0-8 [facility] [place] Comment on above: Performed By: #### C BCD #### [address] [address] [place] [address] Neutrophils/100 WBC (Bld) 0.20 % Normal 0.0-1.0 [facility] [place] Comment on above: Performed By: #### C BCD #### [address] [place] [address] Neutrophils/100 WBC (Bld) 38.30 % Low 50-70 [facility] [place] Comment on above: Performed By: #### C BCD #### [address] [place] [address] NRBC'S 0 /100 WBC Normal 0 [facility] [place] Comment on above: Performed By: #### C BCD #### [address] [place] [address] Platelets (Bld) [#/Vol] 208 10*3/uL Normal 150-450 [facility] [place] Comment on above: Performed By: #### C BCD #### [facility] [address] [address] [place] [address] RBC (Bld) [#/Vol] 3.92 M/UL Low 4.0-4.9 [facility] Comment on above: Performed By: #### C BCD #### [address] [address] [place] [address] RDW-SD 41.1 FL Normal 37.0-54.0 [facility] [place] Comment on above: Performed By: #### C BCD #### [facility] [address] [address] [place] [address] WBC (Bld) [#/Vol] 4.2 10*3/uL Low 4.5-11.0 [facility] Comment on above: Performed By: #### C BCD #### [facility] [address] [address] [place] [address] COMPREHENSIVE METABOLIC PANE Kavon 05-27-2019 Albumin [Mass/Vol] 3.8 g/dL Normal 3.5-5.0 [facility] Comment on above: Performed By: #### C SOLE CEMENTER #### [facility] [address] [place] [address] Albumin/Globulin [Mass ratio] 1.7 {ratio} Normal 1.5-3.0 [facility] Comment on above: Performed By: #### C SOLE CEMENTER #### [facility] [address] [address] [place] [address] ALP [Catalytic activity/Vol] 193 U/L High 35-125 [facility] Comment on above: Performed By: #### C SOLE CEMENTER #### [facility] [address] [address] [place] [address] ALT [Catalytic activity/Vol] High 5-40 [facility] Comment on above: Result Comment: 510 Performed at [place] [address] [facility] [address] Performed By: #### C SOLE CEMENTER #### [facility] [address] [place] [address] [place] [address] Anion gap [Moles/Vol] 9 mmol/L Normal 0-19 [facility] Comment on above: Performed By: #### C SOLE CEMENTER #### [facility] [address] [address] [place] [address] AST [Catalytic activity/Vol] 207 U/L High 5-40 [facility] [place] Comment on above: Performed By: #### C SOLE CEMENTER #### [facility] [address] [place] [address] [place] [address] Bilirubin [Mass/Vol] 0.5 mg/dL Normal 0.1-1.2 [facility] [place] Comment on above: Performed By: #### C SOLE CEMENTER #### [facility] [address] [address] [place] [address] Calcium [Mass/Vol] 8.9 mg/dL Normal 8.5-10.4 [facility] Comment on above: Performed By: #### C SOLE CEMENTER #### [facility] [address] [address] [place] [address] Chloride [Moles/Vol] 109 mmol/L High 97-107 [facility] Comment on above: Performed By: #### C SOLE CEMENTER #### [facility] [address] [address] [place] [address] CO2 [Moles/Vol] 24 mmol/L Normal 24-31 [facility] Comment on above: Performed By: #### C SOLE CEMENTER #### [facility] [address] [address] [place] [address] Creatinine [Mass/Vol] 0.8 mg/dL Normal 0.4-1.6 [facility] Comment on above: Performed By: #### C SOLE CEMENTER #### [facility] [address] [address] [place] [address] Globulin (S) [Mass/Vol] 2.2 g/dL Normal 1.9-3.7 [facility] Comment on above: Performed By: #### C SOLE CEMENTER #### [facility] [address] [address] [place] [address] Glucose [Mass/Vol] 109 mg/dL High 65-99 [facility] Comment on above: Performed By: #### C SOLE CEMENTER #### [facility] [address] [address] [place] [address] Potassium [Moles/Vol] 4.7 mmol/L Normal 3.4-5.1 [facility] Comment on above: Performed By: #### C SOLE CEMENTER #### [facility] [address] [address] [place] [address] Protein [Mass/Vol] 6.0 g/dL Normal 5.9-7.9 [facility] Comment on above: Performed By: #### C SOLE CEMENTER #### [facility] [address] [address] [place] [address] Sodium [Moles/Vol] 142 mmol/L Normal 133-145 [facility] Comment on above: Performed By: #### C SOLE CEMENTER #### [facility] [address] [address] [place] [address] Urea nitrogen [Mass/Vol] 6 mg/dL Low 8-25 [facility] Comment on above: Performed By: #### C SOLE CEMENTER #### [facility] [address] [address] [place] [address] Urea nitrogen/Creatinine [Mass ratio] 7.5 RATIO Low 8-21 [facility] Comment on above: Performed By: #### C SOLE CEMENTER #### [facility] [address] [address] [place] [address] HEPATIC FUNCTION PANELon AST [Catalytic activity/Vol] 123 U/L High 5-40 [facility] Comment on above: Performed By: #### L IV #### [facility] [address] [address] [place] [address] Albumin [Mass/Vol] 4.0 g/dL Normal 3.5-5.0 [facility] Comment on above: Performed By: #### L IV #### [facility] [address] [address] [place] [address] Albumin/Globulin [Mass ratio] Normal 1.5-3.0 [facility] Comment on above: Result Comment: 1.7 Performed at [address] [place] [place] [address] Performed By: #### L IV #### [facility] [address] [address] [place] [address] ALP [Catalytic activity/Vol] 190 U/L High 35-125 [facility] Comment on above: Performed By: #### L IV #### [facility] [address] [address] [place] [address] ALT [Catalytic activity/Vol] 447 U/L High 5-40 [facility] Comment on above: Performed By: #### L IV #### [facility] [address] [address] [place] [address] Bilirubin [Mass/Vol] 0.4 mg/dL Normal 0.1-1.2 [facility] Comment on above: Performed By: #### L IV #### [facility] [address] [address] [place] [address] BILIRUBIN INDIRECT 0.2 MG/DL Normal 0-0.8 [facility] Comment on above: Performed By: #### L IV #### [address] [address] Bilirubin.direct [Mass/Vol] Normal 0.0-0.2 [facility] Comment on above: Result Comment: 0.2 LESS THAN Performed By: #### L IV #### [address] [address] Globulin (S) [Mass/Vol] 2.3 g/dL Normal 1.9-3.7 [facility] Comment on above: Performed By: #### L IV #### [address] [address] Protein [Mass/Vol] 6.3 g/dL Normal 5.9-7.9 [facility] Comment on above: Performed By: #### L IV #### [address] [address] LIPASE PSon 05-27-2019 LIPASE PS Normal 16-63 [facility] Comment on above: Result Comment: 29 Performed at [address] [address] Performed By: #### L IPS #### [address] [address] UA-REFLEX TO CULTUREon 05-27 BACT Negative [facility] Comment on above: Performed By: #### U ACUL #### [address] [address] MICROSCOPIC AUTOMATIC MICROSCOPI C URINES [facility] Comment on above: Performed By: #### U ACUL #### [address] [address] RBC (Bld) [#/Vol] NONE SEEN Normal 0-3 [facility] Comment on above: Performed By: #### U ACUL #### [address] [address] URINE HYALINE CAST NONE SEEN Normal [facility] Comment on above: Performed By: #### U ACUL #### [address] [place] [address] [place] [address] URINE SQUAMOUS EPI NONE SEEN Normal [facility] Comment on above: Performed By: #### U ACUL #### [facility] [address] [place] [place] [address] WBC (Bld) [#/Vol] NONE SEEN Normal 0-3 [facility] Comment on above: Performed By: #### U ACUL #### [facility] [address] [place] [place] [address] Bacteria identified Cx Nom (U) [facility] Comment on above: Result Comment: CULT URE NOT INDICATED Performed at [place] [address] [place] [address] Performed By: #### U ACUL #### [facility] [address] [place] [place] [address] BILI Negative Normal NEG [facility] Comment on above: Performed By: #### U ACUL #### [facility] [address] [place] [place] [address] BLOOD Negative Normal [facility] Comment on above: Performed By: #### U ACUL #### [facility] [address] [place] [address] Clarity (U) CLEAR [facility] Comment on above: Performed By: #### U ACUL #### [facility] [address] [place] [address] Color (U) COLORLESS [facility] Comment on above: Performed By: #### U ACUL #### [facility] [address] [place] [place] [address] GLUC Negative Normal NEG [facility] Comment on above: Performed By: #### U ACUL #### [facility] [address] [place] [place] [address] KET Negative Normal NEG [facility] Comment on above: Performed By: #### U ACUL #### [facility] [address] [place] [place] [address] LEUK Negative Normal NEG [facility] Comment on above: Performed By: #### U ACUL #### [facility] [address] [place] [address] [place] [address] NIT Negative Normal NEG [facility] Comment on above: Performed By: #### U ACUL #### [facility] [address] [place] [address] [place] [address] pH (U) 6.0 [pH] Normal 4.6-8.0 [facility] Comment on above: Performed By: #### U ACUL #### [facility] [address] [address] [place] [address] PROT Negative Normal NEG [facility] Comment on above: Performed By: #### U ACUL #### [facility] [address] [address] [place] [address] SP GRAV,URINE 1.005 Normal 1.005-1.030 [facility] Comment on above: Performed By: #### U ACUL #### [facility] [address] [place] [address] [place] [address] URO NORMAL Normal 0-1.0 [facility] Comment on above: Performed By: #### U ACUL #### [facility] [address] [place] [address] [address] [place] [address] PROTHROMBIN TIMEon 9 INR Coag (PPP) [Relative time] High 0.86-1.16 [facility] Comment on above: Result Comment: 1.6 INR Theraputic Range: 2.0-3.5 Performed at [place] [address] [place] [address] Performed By: #### P TB #### [facility] [address] [place] [address] [place] [address] PT Coag (PPP) [Time] 16.6 s High 9.3-12.7 [facility] Comment on above: Performed By: #### P TB #### [facility] [place] [address] [place] [address] PT Coag (PPP) [Time] COUMADIN Normal [facility] Comment on above: Performed By: #### P TB #### [facility] [address] [address] [place] [address] PROTHROMBIN TIMEon 8 INTERNATIONAL NORM RATIO 1.5 Low 2.0-3.5 [facility] Comment on above: Result Comment: INR THERAPEUTIC RANGE: GROUP A 2.0-3.0 INR GROUP B 2.5-3.5 INR GROUP A SUGGESTED INDICATIONS: PROPHYLAXIS AND TREATMENT OF VENOUS THROMBOSIS TREATMENT OF PULMONARY EMBOLISM ATRIAL FIBRILLATION GROUP B SUGGESTED INDICATIONS: MECHANICAL PROSTHETIC VALVES Performed By: #### C BCD, PT, BHCG, CMP, ETOH ####[facility] [address] [place] [address] Prothrombin time (PT) Coag time (PPP) 16.7 s High 9.0-12.4 [facility] Comment on above: Performed By: #### C BCD, PT, BHCG, CMP, ETOH ####[facility] [address] [place] [address] PROTHROMBIN TIMEon 8 INTERNATIONAL NORM RATIO 1.9 Low 2.0-3.5 [facility] Comment on above: Result Comment: INR THERAPEUTIC RANGE: GROUP A 2.0-3.0 INR GROUP B 2.5-3.5 INR GROUP A SUGGESTED INDICATIONS: PROPHYLAXIS AND TREATMENT OF VENOUS THROMBOSIS TREATMENT OF PULMONARY EMBOLISM ATRIAL FIBRILLATION GROUP B SUGGESTED INDICATIONS: MECHANICAL PROSTHETIC VALVES Performed By: #### P T ####[facility] [address] [place] [address] Prothrombin time (PT) Coag time (PPP) 20.7 s High 9.0-12.4 [facility] Comment on above: Performed By: #### P T ####[facility] [address] [place] [address] COMPREHENSIVE METABOLIC PANE Kavon 12-03-2017 Alanine aminotransferase (ALT) 53 U/L Normal 12-78 [facility] Comment on above: Performed By: #### C MP ####[facility] [address] [place] [address] Albumin 3.9 gm/dl Normal 3.1-4.5 [facility] Comment on above: Performed By: #### C MP ####[facility] [address] [place] [address] Alkaline phosphatase (ALP) 176 U/L High 45-117 [facility] Comment on above: Performed By: #### C MP ####[facility] [address] [place] [address] Bilirubin (total) 0.3 mg/dL Normal 0.2-1.0 [facility] Comment on above: Performed By: #### C MP ####[facility] [address] [place] [address] Calcium 8.5 mg/dL Normal 8.5-10.5 [facility] Comment on above: Performed By: #### C MP ####[facility] [address] [place] [address] Chloride 99 mmol/L Normal 98-107 [facility] Comment on above: Performed By: #### C MP ####[facility] [address] [place] [address] CO2 28 mmol/L Normal 21-32 [facility] Comment on above: Performed By: #### C MP ####[facility] [address] [place] [address] Creatinine 0.68 mg/dL Normal 0.55-1.02 [facility] Comment on above: Performed By: #### C MP ####[facility] [address] [place] [address] EST GLOM FILT > 60 Normal [facility] Comment on above: Result Comment: Resu lt [...] < 15. Performed By: #### C MP ####[facility] [address] [place] [address] ESTIMATED GLOM FILT RATE > 60 Normal [facility] Comment on above: Performed By: #### C MP ####[facility] [address] [place] [address] Glucose mass conc 109 mg/dL High 65-99 [facility] Comment on above: Performed By: #### C MP ####[facility] [address] [place] [address] Potassium molar conc 3.2 mmol/L Low 3.5-5.1 [facility] Comment on above: Performed By: #### C MP ####[facility] [address] [place] [address] Protein 6.9 g/dL Normal 6.4-8.2 [facility] Comment on above: Performed By: #### C MP ####[facility] [address] [place] [address] SGOT/AST 35 IU/L Normal 3-35 [facility] Comment on above: Performed By: #### C MP ####[facility] [address] [place] [address] Sodium 136 mmol/L Normal 136-145 [facility] Comment on above: Performed By: #### C MP ####[facility] [address] [place] [address] Urea nitrogen 14 mg/dL Normal 7-24 [facility] Comment on above: Performed By: #### C MP ####[facility] [address] [place] [address] PROTHROMBIN TIMEon 8 INTERNATIONAL NORM RATIO 1.7 Low 2.0-3.5 [facility] Comment on above: Result Comment: INR THERAPEUTIC RANGE: GROUP A 2.0-3.0 INR GROUP B 2.5-3.5 INR GROUP A SUGGESTED INDICATIONS: PROPHYLAXIS AND TREATMENT OF VENOUS THROMBOSIS TREATMENT OF PULMONARY EMBOLISM ATRIAL FIBRILLATION GROUP B SUGGESTED INDICATIONS: MECHANICAL PROSTHETIC VALVES Performed By: #### P T ####[facility] [address] [place] [address] Prothrombin time (PT) Coag time (PPP) 18.4 s High 9.0-12.4 [facility] Comment on above: Performed By: #### P T ####[facility] [address] [place] [address] BETA-HCG, QUANTon 12-02-2017 BETA-HCG, QUANT 4.0 mIU/mL High 1-3 [facility] Comment on above: Result Comment: INTE RPRETATION FOR : 0-3 mIU/ml=NEGATIVE 4-24 mIU/mL=BORDERLINE >25 mIU/mL=POSITIVE Performed By: #### C BCD, PT, BHCG, CMP, ETOH ####[facility] [address] [place] [address] CBC with DIFFERENTIALon 11-17 Basophils Auto #/vol (Bld) 0.1 10*3/uL Normal 0.0-0.1 [facility] Comment on above: Performed By: #### C BCD, PT, BHCG, CMP, ETOH ####[facility] [address] [place] [address] Basophils/100 WBC Auto (Bld) 0.8 % Normal 0.0-1.0 [facility] Comment on above: Performed By: #### C BCD, PT, BHCG, CMP, ETOH ####[facility] [address] [place] [address] Eosinophils 0.2 10*3/uL Normal 0.0-0.4 [facility] Comment on above: Performed By: #### C BCD, PT, BHCG, CMP, ETOH ####[facility] [address] [place] [address] Eosinophils/100 leukocytes 3.0 % Normal 1.0-4.0 [facility] Comment on above: Performed By: #### C BCD, PT, BHCG, CMP, ETOH ####[facility] [address] [place] [address] Erythrocytes (RBC) 4.21 10*6/uL Normal 4.10-5.10 [facility] Comment on above: Performed By: #### C BCD, PT, BHCG, CMP, ETOH ####[facility] [address] [place] [address] Hematocrit (HCT) 40.1 % Normal 37.0-47.0 [facility] Comment on above: Performed By: #### C BCD, PT, BHCG, CMP, ETOH ####[facility] [address] [place] [address] Hemoglobin mass conc (Bld) 32.5 pg High 27.0-31.0 [facility] Comment on above: Performed By: #### C BCD, PT, BHCG, CMP, ETOH ####[facility] [address] [place] [address] Hemoglobin mass conc (Bld) 13.7 g/dL Normal 12.0-16.0 [facility] Comment on above: Performed By: #### C BCD, PT, BHCG, CMP, ETOH ####[facility] [address] [place] [address] IG # 0.0 10*3/uL Normal 0.0-0.1 [facility] Comment on above: Performed By: #### C BCD, PT, BHCG, CMP, ETOH ####[facility] [address] [place] [address] IG % 0.2 % Normal 0.0-1.0 [facility] Comment on above: Performed By: #### C BCD, PT, BHCG, CMP, ETOH ####[facility] [address]dl[address] [place] [address] Lymphocytes 1.4 10*3/uL Normal 1.3-4.4 [facility] Comment on above: Performed By: #### C BCD, PT, BHCG, CMP, ETOH ####[facility] [address]qhof[address] [place] [address] Lymphocytes/100 leukocytes 24.2 % Low 27.0-41.0 [facility] Comment on above: Performed By: #### C BCD, PT, BHCG, CMP, ETOH ####[facility] [address]df[address] [place] [address] MCH 34.2 g/dl Normal 33.0-37.0 [facility] Comment on above: Performed By: #### C BCD, PT, BHCG, CMP, ETOH ####[facility] [address] [place] [address] MCV 95.2 fL Normal 81.0-99.0 [facility] Comment on above: Performed By: #### C BCD, PT, BHCG, CMP, ETOH ####[facility] [address]kspp[address] [place] [address] Monocytes 0.3 10*3/uL Normal 0.1-1.0 [facility] Comment on above: Performed By: #### C BCD, PT, BHCG, CMP, ETOH ####[facility] [address] [place] [address] Monocytes/100 leukocytes 5.2 % Normal 3.0-9.0 [facility] Comment on above: Performed By: #### C BCD, PT, BHCG, CMP, ETOH ####[facility] [address] [place] [address] Neutrophils 4.0 10*3/uL Normal 2.3-7.9 [facility] Comment on above: Performed By: #### C BCD, PT, BHCG, CMP, ETOH ####[facility] [address] [place] [address] Neutrophils/100 WBC Auto (Bld) 66.6 % Normal 47.0-73.0 [facility] Comment on above: Performed By: #### C BCD, PT, BHCG, CMP, ETOH ####[facility] [address]ls[address] [place] [address] NUCLEATED RED BLOOD CELL 0.0 % Normal 0.0-0.0 [facility] Comment on above: Performed By: #### C BCD, PT, BHCG, CMP, ETOH ####[facility] [address] [place] [address] NUCLEATED RED BLOOD CELL 0.0 10*3/uL Normal 0.0-0.0 [facility] Comment on above: Performed By: #### C BCD, PT, BHCG, CMP, ETOH ####[facility] [address] [place] [address] PLATELET COUNT AUTOMATED 339 10*3/uL Normal 130-400 [facility] Comment on above: Performed By: #### C BCD, PT, BHCG, CMP, ETOH ####[facility] [address]tiu[address] [place] [address] Platelet mean volume (PMV) 8.5 fL Low 9.6-12.3 [facility] Comment on above: Performed By: #### C BCD, PT, BHCG, CMP, ETOH ####[facility] [address] [place] [address] RED CELL DISTRI WIDTH 12.2 % Normal 0-14.5 [facility] Comment on above: Performed By: #### C BCD, PT, BHCG, CMP, ETOH ####[facility] [address]bxl[address] [place] [address] WBC (Leukocytes) 5.9 10*3/uL Normal 4.8-10.8 [facility] Comment on above: Performed By: #### C BCD, PT, BHCG, CMP, ETOH ####[facility] [address]rhj[address] [place] [address] COMPREHENSIVE METABOLIC PANE Kavon 12-02-2017 Alanine aminotransferase (ALT) 60 U/L Normal 12-78 [facility] Comment on above: Performed By: #### C BCD, PT, BHCG, CMP, ETOH ####[facility] [address] [place] [address] Albumin 3.9 gm/dl Normal 3.1-4.5 [facility] Comment on above: Performed By: #### C BCD, PT, BHCG, CMP, ETOH ####[facility] [address] [place] [address] Alkaline phosphatase (ALP) 192 U/L High 45-117 [facility] Comment on above: Performed By: #### C BCD, PT, BHCG, CMP, ETOH ####[facility] [address] [place] [address] Bilirubin (total) 0.4 mg/dL Normal 0.2-1.0 [facility] Comment on above: Performed By: #### C BCD, PT, BHCG, CMP, ETOH ####[facility] [address]fqd[address] [place] [address] Calcium 8.1 mg/dL Low 8.5-10.5 [facility] Comment on above: Performed By: #### C BCD, PT, BHCG, CMP, ETOH ####[facility] [address] [place] [address] Chloride 106 mmol/L Normal 98-107 [facility] Comment on above: Performed By: #### C BCD, PT, BHCG, CMP, ETOH ####[facility] Bj[address]voahnq[address] [place] [address] CO2 24 mmol/L Normal 21-32 [facility] Comment on above: Performed By: #### C BCD, PT, BHCG, CMP, ETOH ####[facility] [address] [place] [address] Creatinine 0.77 mg/dL Normal 0.55-1.02 [facility] Comment on above: Performed By: #### C BCD, PT, BHCG, CMP, ETOH ####[facility] [address]fativvrx[address] [place] [address] EST GLOM FILT > 60 Normal [facility] Comment on above: Result Comment: Resu lt [...] #### C BCD, PT, BHCG, CMP, ETOH ####[facility] [address]fr[address] [place] [address] ESTIMATED GLOM FILT RATE > 60 Normal [facility] Comment on above: Performed By: #### C BCD, PT, BHCG, CMP, ETOH ####[facility] [address] [place] [address] Glucose mass conc 110 mg/dL High 65-99 [facility] Comment on above: Performed By: #### C BCD, PT, BHCG, CMP, ETOH ####[facility] [address]vbgj[address] [place] [address] Potassium molar conc 3.1 mmol/L Low 3.5-5.1 [facility] Comment on above: Performed By: #### C BCD, PT, BHCG, CMP, ETOH ####[facility] [address]mod[address] [place] [address] Protein 7.4 g/dL Normal 6.4-8.2 [facility] Comment on above: Performed By: #### C BCD, PT, BHCG, CMP, ETOH ####[facility] [address]wikq[address] [place] [address] SGOT/AST 21 IU/L Normal 3-35 [facility] Comment on above: Performed By: #### C BCD, PT, BHCG, CMP, ETOH ####[facility] [address]rtq[address] [place] [address] Sodium 140 mmol/L Normal 136-145 [facility] Comment on above: Performed By: #### C BCD, PT, BHCG, CMP, ETOH ####[facility] [address]awp[address] [place] [address] Urea nitrogen 12 mg/dL Normal 7-24 [facility] Comment on above: Performed By: #### C BCD, PT, BHCG, CMP, ETOH ####[facility] [address]cl[address] [place] [address] ETHYL ALCOHOLon 12-02-2017 ETHYL ALCOHOL < 3.0 Normal <3 [facility] Comment on above: Performed By: #### C BCD, PT, BHCG, CMP, ETOH ####[facility] [address] [place] [address] PROTHROMBIN TIMEon 8 INTERNATIONAL NORM RATIO 1.8 Low 2.0-3.5 [facility] Comment on above: Result Comment: INR THERAPEUTIC RANGE: GROUP A 2.0-3.0 INR GROUP B 2.5-3.5 INR GROUP A SUGGESTED INDICATIONS: PROPHYLAXIS AND TREATMENT OF VENOUS THROMBOSIS TREATMENT OF PULMONARY EMBOLISM ATRIAL FIBRILLATION GROUP B SUGGESTED INDICATIONS: MECHANICAL PROSTHETIC VALVES Performed By: #### C BCD, PT, BHCG, CMP, ETOH ####[facility] [address] [place] [address] Prothrombin time (PT) Coag time (PPP) 19.9 s High 9.0-12.4 [facility] Comment on above: Performed By: #### C BCD, PT, BHCG, CMP, ETOH ####[facility] [address]dfk[address] [place] [address] URINALYSIS REFLEX TO CULTURE on 12-02-2017 Bilirubin (total) Negative Normal NEGATIVE [facility] Comment on above: Performed By: #### U ARFXUC ####[facility] [address] [place] [address] BLOOD TRACE-INTACT Abnormal NEGATIVE [facility] Comment on above: Performed By: #### U ARFXUC ####[facility] [address] [place] [address] Erythrocytes (RBC) 5-10 Normal 0-2 [facility] Comment on above: Performed By: #### U ARFXUC ####[facility] [address] [place] [address] Glucose mass conc Negative Normal NEGATIVE [facility] Comment on above: Performed By: #### U ARFXUC ####[facility] [address] [place] [address] HYALINE CAST 21-30 Normal [facility] Comment on above: Performed By: #### U ARFXUC ####[facility] [address] [place] [address] KETONE Negative Normal NEGATIVE [facility] Comment on above: Performed By: #### U ARFXUC ####[facility] [address] [place] [address] LEUKO ESTERASE Negative Normal NEGATIVE [facility] Comment on above: Performed By: #### U ARFXUC ####[facility] [address] [place] [address] MUCOUS 1+ Normal [facility] Comment on above: Performed By: #### U ARFXUC ####[facility] [address] [place] [address] pH of blood 5.5 [pH] Normal 5.0-9.0 [facility] Comment on above: Performed By: #### U ARFXUC ####[facility] [address] [place] [address] Protein Negative Normal NEGATIVE [facility] Comment on above: Performed By: #### U ARFXUC ####[facility] [address]efr[address] [place] [address] URINE REFLEX COMMENT NO Normal NO [facility] Comment on above: Performed By: #### U ARFXUC ####[facility] [address] [place] [address] Urine, bacteria in sediment 1+ Abnormal [facility] Comment on above: Performed By: #### U ARFXUC ####[facility] [address]wgc914 [place] [address] Urine, clarity CLEAR Normal CLEAR [facility] Comment on above: Performed By: #### U ARFXUC ####[facility] [address] [place] [address] Urine, color YELLOW Normal YELLOW [facility] Comment on above: Performed By: #### U ARFXUC ####[facility] [address] [place] [address] Urine, epithelial cells in sediment 5-10 Normal [facility] Comment on above: Performed By: #### U ARFXUC ####[facility] [address] [place] [address] Urine, nitrite presence Negative Normal NEGATIVE [facility] Comment on above: Performed By: #### U ARFXUC ####[facility] [address] [place] [address]88[address] Urine, specific gravity 1.020 Normal 1.005-1.030 [facility] Comment on above: Performed By: #### U ARFXUC ####[facility] [address] [place] [address] Urine, urobilinogen 0.2 E.U./dl Normal 0.2-1.0 [facility] Comment on above: Performed By: #### U ARFXUC ####[facility] [address] [place] [address] 30945 WBC (Leukocytes) 2-4 Normal 0-5 [facility] Comment on above: Performed By: #### U ARFXUC ####[facility] [address] [place] [address] URINE DRUG SCREENon 12-03-19 18 URINE AMPHETAMINES < 1000 Normal 1000ng/ml [facility] Comment on above: Performed By: #### U DRG ####[facility] [address] [place] [address] URINE BARBITURATES > 200 Abnormal 200ng/ml [facility] Comment on above: Performed By: #### U DRG ####[facility] [address] [place] [address] URINE BENZODIAZEPINES > 200 Abnormal 200ng/ml [facility] Comment on above: Performed By: #### U DRG ####[facility] [address] [place] [address]30[address] URINE CANNABINOIDS (THC) < 50 Normal 50ng/ml [facility] Comment on above: Performed By: #### U DRG ####[facility] [address] [place] [address] 70661 URINE COCAINE < 300 Normal 300ng/ml [facility] Comment on above: Performed By: #### U DRG ####[facility] [address] [place] [address] URINE METHADONE < 300 Normal 300ng/ml [facility] Comment on above: Performed By: #### U DRG ####[facility] [address] [place] [address] 49883 URINE OPIATES < 300 Normal 300ng/ml [facility] Comment on above: Performed By: #### U DRG ####[facility] [address] [place] [address] Urine, pH [pH] Normal 25ng/ml [facility] Comment on above: Result Comment: pH o f the urine has been checked and is within acceptable range 5-8 The Drugs of Abuse are screening results only. Confirmation and Quantitation by GC/MS can be performed byrequest at an additional charge. ANYTHING EQUAL TO OR GREATER THAN THE REFERENCE INDICATESABUSE. ( > = POSITIVE < = NEGATIVE ) Performed By: #### U DRG ####[facility] [address] [place] [address] CT Chest w/ + w/o Contraston 11-15-2017 CT Chest w/ + w/o Contrast Patient Name: DOROTHEA RUTLEDGE CT Exam Date/Time 11/15/2017 05:22:[address] Chest w/ + w/o Contrast Ordering Physician MD CATHIE, JESSICA Accession Number [id number] CPT4 Codes 47026 (), Q9967 () Reason For Exam TRAUMA [...] normal. Scapula are incompletely included in the vkzvd-wm-zzua, but the visualized portions show no fractures. No rib fractures are identified. Deformity of the sternum and manubrium is noted which appears chronic and is unchanged compared to a chest radiograph of 09/01/2016. There are no vertebral compression deformities identified. IMPRESSION: No acute posttraumatic abnormality is noted in the chest, with clavicles incompletely included in the ozcpx-bn-vmia Report Dictated on Workstation: [id number] Final Dictating Physician: MD AREVALO DIANE Signed Date and Time: 11/15/2017 6:26 am Signed by: MD AREVALO DIANE Transcribed Date and Time: 11/15/2017 6:28 Normal [facility] CT Head or Brain w/o Contras ton 11-15-2017 CT Head or Brain w/o Contrast Patient Name: DOROTHEA RUTLEDGE CT Exam Date/Time 11/15/2017 05:35:[address] Head or Brain w/o Contrast Ordering Physician MD BRAND RAYMUNDO Accession Number [id number] CPT4 Codes 73761 () Reason For Exam elevated INR >10, [...] Transcribed Date and Time: 11/15/2017 6:22 Normal [facility] CT Abdomen/Pelvis w/ Contras ton 10-28-2017 CT Abdomen/Pelvis w/ Contrast Patient Name: DOROTHEA RUTLEDGE CT Exam Date/Time 10/28/2017 00:39:[address] Abdomen/Pelvis w/ IV Contrast (IV Onl Ordering Physician DO CRISTINA MICHAEL J. Accession Number [id number] CPT4 Codes 66998 (CT Abdomen/Pelvis w/ IV Contrast (IV Onl), [...] residue suggesting constipation. Report Dictated on Workstation: [id number] [employer] Final Dictating Physician: MANISH MUELLER DO, I Signed Date and Time: 10/28/2017 1:31 am Signed by: MANISH MUELLER DO, I Transcribed Date and Time: 10/28/2017 1:32 Normal [facility] CULTURE URINEon 10-28-2017 CULTURE URINE Specimen Source Comment:Urine, clean catch [facility] Patient name: MATY DOROTHEA RylieNJacque: [id number] : 1975 Age: 41 Sex: F Ord. Physician: Location: [place] [address] Copy to: [facility]. Date: 10/28/17 MICROBIOLOGYORDER#: [id number] COLLECTED: 10/28/17 00:09SOURCE: Urine RECEIVED: 10/28/17 00:15 OE C O M M E N T S Spe cimen Source Comment:Urine, clean catchCULTURE URINE FINAL 10/28/17 22:Normal urogenital keron present. Normal [facility] Comment on above: Performed By: #### C /UR ####[address] [address] US Abdomen Completeon 2017 US Abdomen Complete Patient Name: DOROTHEA RUTLEDGE Ultrasound Exam Date/Time 10/27/2017 23:10:00 EST Exam US Abdomen Complete Ordering Physician DO CRISTINA MICHAEL J. Accession Number [id number] CPT4 Codes 61222 () Reason For Exam RUQ and epigastric [...] sonographic Barrett's sign was documented by the intellectual property counsel. The pancreas is not well visualized secondary [...] Transcribed Date and Time: 10/27/2017 11:25 Normal [facility] BMPon 10-27-2017 Anion gap 12 mmol/L Normal 5-16 [facility] Comment on above: Order Comment: Campu s: M Performed By: #### L 500.59813, L500.18204, L500.39922, L500.12749 ####[facility] JIZTJPJIUA[address] [place], [place] [address]Pn# [phone] BUN/Creatinine Ratio 19 mg/mg Normal 15-24 [facility] Comment on above: Order Comment: Campu s: M Performed By: #### L 500.19901, L500.70712, L500.48169, L500.33555 ####[facility] VRNUWMNSSI5111 [place], [place] [address]Aq# [phone] Calcium 8.5 mg/dL Normal 8.5-10.1 [facility] Comment on above: Order Comment: Campu s: M Performed By: #### L 500.18047, L500.24087, L500.74920, L500.70190 ####[facility] [id number] [place] [address]Yf# [phone] Chloride 110 mmol/L High 98-107 [facility] Comment on above: Order Comment: Campu s: M Performed By: #### L 500.27965, L500.16420, L500.11791, L500.27724 ####[facility] VUCERFVAWW8054 [place], [place] [address]Np# [phone] CO2 20 mmol/L Low 21-32 [facility] Comment on above: Order Comment: Campu s: M Performed By: #### L 500.27883, L500.66853, L500.64332, L500.71174 ####[facility] [id number] [place] [address]Dw# [phone] Creatinine 0.674 mg/dL Normal 0.510-0.950 [facility] Comment on above: Order Comment: Campu s: M Result Comment: Evelyn ents receiving either N-Acetylcysteine (NAC) orMetamizole prior to venipuncture, may have falsely depressedresults. Performed By: #### L 500.96357, L500.35715, L500.26616, L500.20727 ####[facility] HHYQPERXTK2849 [place], [place] [address]Mp# [phone] Glucose mass conc 120 mg/dL High 70-100 [facility] Comment on above: Order Comment: Campu s: M Result Comment: 70-1 00- Normal Fasting; 100-125 Impaired Fasting; greaterthan 126 on more than one result- Diabetes. ADA guidelines.Results may be falsely elevated after the administration ofSulfapyridine.Results may be falsely depressed after the administration ofSulfasalazine. Performed By: #### L 500.77316, L500.41009, L500.92214, L500.82326 ####[facility] OZECUVTAHS[address]7 [place], [place] [address]Cm# [phone] Potassium molar conc 4.2 mmol/L Normal 3.5-5.1 [facility] Comment on above: Order Comment: Campu s: M Result Comment: Mode rate Hemolysis, Result may be falsely increased. Performed By: #### L 500.78993, L500.96516, L500.12681, L500.83254 ####[facility] HZHHNTATBD8848 [place], [place] [address]Ov# [phone] Sodium 142 mmol/L Normal 136-145 [facility] Comment on above: Order Comment: Campu s: M Performed By: #### L 500.29632, L500.66917, L500.70301, L500.42272 ####[facility] TKWGOMDLHC2645 [place], [place] [address]Px# [phone] Urea nitrogen 13 mg/dL Normal 7-26 [facility] Comment on above: Order Comment: Campu s: M Performed By: #### L 500.28225, L500.45508, L500.73939, L500.07795 ####[facility] LOXECAYHHX6344 [place], [place] [address]Xx# [phone] CBC W/DIFFon 02-08-2018 BASO ABS 0.10 K/CU MM Normal 0-0.2 [facility] Comment on above: Order Comment: Campu s: M Performed By: #### L 200.12597 ####[facility] PNKLMDDERY4078 [place], [place] [address]Vr# [phone] Basophils/100 WBC Auto (Bld) 0.8 % Normal 0-2 [facility] Comment on above: Order Comment: Campu s: M Performed By: #### L 200.81170 ####[facility] [id number] [place] [address] 277[address]Hi# [phone] EOS ABS 0.30 K/CU MM Normal 0-0.5 [facility] Comment on above: Order Comment: Campu s: M Performed By: #### L 200.01470 ####[address] [address]Ji# [phone] Eosinophils/100 leukocytes 5.2 % High 0-5 [facility] Comment [facility]: Order Comment: Campu s: M Performed By: #### L 200.18638 ####[facility] [id number] [place] [address] 74[address]Ta# [phone] Erythrocyte distribution width Auto Ratio (RBC) 12.8 % Normal 11-14.5 [facility] Comment on above: Order Comment: Campu s: M Performed By: #### L 200.22449 ####[facility] [id number] [place] [address] 487[address]Eu# [phone] Erythrocytes (RBC) 0.0 % Normal Less than 1 [facility] Comment on above: Order Comment: Campu s: M Performed By: #### L 200.89642 ####[facility] [id number] [place] [address]Xx# [phone] Erythrocytes (RBC) 3.84 M/CU MM Low 3.90-5.30 [facility] Comment on above: Order Comment: Campu s: M Performed By: #### L 200.37423 ####[facility] ZSGKLZEPNW2011 [place], [place] [address]Rv# [phone] Hematocrit (HCT) 37.5 % Normal 35.0-47.0 [facility] Comment on above: Order Comment: Campu s: M Performed By: #### L 200.37747 ####[facility] [id number] [place] [address]15[address]Rw# [phone] Hemoglobin mass conc (Bld) 12.6 g/dL Normal 11.5-15.5 [facility] Comment on above: Order Comment: Campu s: M Performed By: #### L 200.90654 ####[place] [address]480[address]Ph# [phone] IMMATR GRAN ABS 0.00 K/CU MM Normal Less than 2 [facility] Comment on above: Order Comment: Campu s: M Performed By: #### L 200.58942 ####[place] [address]4808Ph# [phone] IMMATURE GRAN % 0.3 % Normal Less than 2 [facility] Comment on above: Order Comment: Campu s: M Performed By: #### L 200.06214 ####[facility] [id number] [place] [address]Lo# [phone] Lymphocytes 2.10 K/CU MM Normal 0.9-4.4 [facility] Comment on above: Order Comment: Campu s: M Performed By: #### L 200.82156 ####[facility] R[address] [place] [address]Pf# [phone] Lymphocytes/100 leukocytes 31.6 % Normal 20-40 [facility] Comment on above: Order Comment: Campu s: M Performed By: #### L 200.97917 ####[facility] [id number] [place] [address] 949[address]Hi# [phone] MCHC mass conc (RBC) 33.6 g/dL Normal 32.0-36.0 [facility] Comment [facility]: Order Comment: Campu s: M Performed By: #### L 200.97642 ####[facility] OATMHWAISM7380 [place], [place] [address]Nf# [phone] MCV 97.7 fL Normal 80.0-99.0 [facility] Comment on above: Order Comment: Campu s: M Performed By: #### L 200.48944 ####[facility] [id number] [place], [place] [address]Ph# [phone] MONO ABS 0.40 K/CU MM Normal 0.1-1.1 [facility] Comment on above: Order Comment: Campu s: M Performed By: #### L 200.26172 ####[place] 3554808Ph# [phone] Monocytes/100 leukocytes 6.4 % Normal 2-10 [facility] Comment on above: Order Comment: Campu s: M Performed By: #### L 200.10399 ####[facility] [id number] [place] [address] 095[address]Si# [phone] Neutrophils 3.70 K/CU MM Normal 2.0-8.3 [facility] Comment on above: Order Comment: Campu s: M Performed By: #### L 200.12546 ####[facility] [id number] [place], [place] [address]Ph# [phone] Neutrophils/100 WBC Auto (Bld) 55.7 % Normal 45-75 [facility] Comment on above: Order Comment: Campu s: M Performed By: #### L 200.53631 ####[facility] [id number] [place] [address] 898[address]Cu# [phone] Platelet mean volume (PMV) 8.6 fL Low 9.4-12.4 [facility] Comment on above: Order Comment: Campu s: M Performed By: #### L 200.87532 ####[facility] [id number] [place], [place] [address]Ph# [phone] Platelets 304 K/CU MM Normal 150-450 [facility] Comment on above: Order Comment: Campu s: M Performed By: #### L 200.53646 ####[facility] [id number] [place], [place] [address]Od# [phone] WBC (Leukocytes) 6.6 K/CU MM Normal 4.5-11.0 [facility] Comment on above: Order Comment: Campu s: M Performed By: #### L 200.12115 ####[facility] [id number] [place], [place] [address]Bh# [phone] ED DOCon 10-27-2017 ED DOC SARITA FISCHER ASSESSMENT =======RECORDS: Discharge ReportEvent Time: 10/27/2017 00:12: FlexChartDataEvent Time: 10/27/2017 00:45Status: [facility] Maty [[id number]]Attending [id number] / F / //1975Chart (V2b)Chart created at 10/27/2017 00:00 by Peri Good closed at 10/27/2017 00:10Entry in Emergency Department at 10/26/2017 21:20Patient Name: Dorothea Rutledge Record Number: [id number]: 10/27/2017 00:00 EnteredDepartment at: 10/26/2017 21:20 Patient Seen at:10/26/2017 21:31 Historian: PatientPCP: Lona,Angie Complaint:10/20/17 pt had ERCP with sphynctoidectomy.Also states n/v, recent dx of lung mass withc/o sob.Initial Vital Signs reviewed.Temperature: 98.5 F (36.9 C). Pulse: 93. Respiratory Rate:20. Blood-pressure:125/89. Oxygen Saturation: 97%.History of Present Illness:[place] [facility]. Chief complaintsabdominal pain and shortness of breath. [facility] PATIENT NAME: DOROTHEA RUTLEDGE M[address] [facility] [address] Pearce MEDICAL REC #: [id number], [place] [address] DEPARTMENT CHART EMERGENCY DEPARTMENT PHYSICIANPatient is a 41-year-old female. She has a history offactor V Leiden. She states shes [facility] PE[facility]. [place]. She works as an[employer] and [employer]. She was at work andstarted having some abdominal discomfort and EMS was calledand brought her here.Patient states that she has had a recent ERCP on July a director peoplesoft in [place]. Shehad a sphincterotomy as well. She did [...] PAMAX(EYE LIDS TWICH)Social History: Reviewed RN Note. [facility] PATIENT NAME: DOROTHEA RUTLEDGE Lisa Pearce MEDICAL REC #: [id number], [place] [address] DEPARTMENT CHART EMERGENCY DEPARTMENT PHYSICIANFamily History: Reviewed [...] SecondsLIPASE, information as of 10/26/2017, 9:47 pm [facility] PATIENT NAME: DOROTHEA RUTLEDGE M[address] [facility] [address] Pearce MEDICAL REC #: [id number], [place] [address] DEPARTMENT CHART EMERGENCY DEPARTMENT PHYSICIANLIPASE: 74 U/LLIVER, [...] access was obtained. She was placed on nuclear monitoring technician.Shes been in normal sinus rhythm. EKG wasobtained. It is unchanged from her prior. CT chest wasnegative for any blood clots. It did show a fewsubcentimeter pulmonary nodules. She is aware of these. She [facility] PATIENT NAME: DOROTHEA RUTLEDGE M[address] [facility] [address] Pearce MEDICAL REC #: [id number], [place] [address] DEPARTMENT CHART EMERGENCY DEPARTMENT PHYSICIANactually discussed him [...] report reviewed (not applicable for EMT squads).. [facility] PATIENT NAME: DOROTHEA RUTLEDGE M[address] [facility] [address] Pearce MEDICAL REC #: [id number], [place] [address] DEPARTMENT CHART EMERGENCY DEPARTMENT PHYSICIANMSE completed.I was [...] get your prescriptions filled.EKG and Radiology Results:A risk assessor or radiologist will review any EKG orradiology results provided by the ER doctor. We willcontact you if the results in the final EKG or radiology [facility] PATIENT NAME: DOROTHEA RUTLEDGE M[address] [facility] [address] Pearce MEDICAL REC #: [id number], [place] [address] DEPARTMENT CHART EMERGENCY DEPARTMENT PHYSICIANreports require a [...] will be kept in my medical record. [facility] PATIENT NAME: DOROTHEA RUTLEDGE M[address] [facility] [address] Pearce MEDICAL REC #: [id number], [place] [address] DEPARTMENT CHART EMERGENCY DEPARTMENT PHYSICIANYour signature below indicates consent for Case Managementto contact communitylima [facility] hospitalcare providers in [facility] to meet your ongoing healthcare needs. This willallow forcontinuity of care once you leave theEmergency Department. This exchange of informationwillinclude, but not be limited to, disclosure of yourpatient information and possible release of records. :FlexChartDataEvent Time: 10/27/2017 00:45 ==DEMOGRAPHICS========= Emergisoft Patient: DOROTHEA RUTLEDGESex: FDOB: 1975Age: 41 yrAccount No: [id number]: [id number] Date: 21:20 10/26/2017Address: [address]Address: [place] [address] ==REGISTRATION========= ED Number: [id number]: Marital Status: XFinancial Class: MPPS =TRIAGE ====Priority: 3 - UrgentComplaint: Abdominal PainComplaint: Nausea and VomitingStated Complaint: 10/20/17 pt had ERCP withsphincterectomy. Also states n/v, recent dx of lung masswith c/o sob.Arrival Date: 10/26/2017 21:20Triage Date: 10/26/2017 21:23Mode of Arrival: AmbulanceTransfer From: *Public BuildingWC: NLanguage: Micronesian [facility] PATIENT NAME: DOROTHEA RUTLEDGE M[address] [facility] REC #: [id number], [place] [address] DEPARTMENT CHART EMERGENCY DEPARTMENT PHYSICIANTransport: [place] [facility] =BED =C30 In: 10/26/2017 21:30:31 10/26/201721:30:31 UQI3X84 (Removed From) Out: 10/27/2017 00:55:11010/27/2017 00:55:11 MMR2 =PROVIDERS =======Emergency Medical Service Provider Contact:10/26/2017 21:23:23 EMSEnd:Eugenia Arroyo Provider Contact: 10/26/201721:30:42 RXU3Wpr:MD Peri Breaux Provider Contact: 10/26/201721:31:18 MFFEnd: ====TRIAGE HISTORY ====ALLERGIESAllergic To: Penicillins - Rash 10/26/2017 21:30 GFL7Rjdbspho To: Morphine - *N/A 10/26/2017 21:30 LLT2Cwlfrbgi To: neurontin - neurontin 10/26/2017 21:53DUS9RIQCYKV MEDSName: atorvastatin 20 mg po daily hs 10/27/2017 00:69DEL0Rcxn: COUMADIN 3.5 MG TABLET - PO daily 10/27/201700:[address] [facility] PATIENT NAME: DOROTHEA RUTLEDGE [id number] Lisa Pearce MEDICAL REC #: [id number], [place] [address] DEPARTMENT CHART EMERGENCY DEPARTMENT PHYSICIANName: TOPAMAX 25MG TABLET - PO bid 10/27/2017 00:23 EJN2Sviw: KLONOPIN 0.5MG TABLET - PO bid and 1mg HS10/27/2017 00:23 NSI5Dnoi: LASIX 40MG TABLET - PO daily 10/27/2017 00:23 WXO2Boil: POTASSIUM CHLORIDE 20MEQ EXTENDED-RELEASE TABLET- PO daily 10/27/2017 00:23 EGK8Mrke: VALTREX 500MG TABLET - PO daily 10/27/2017 00:55LNO8Scbq: EFFEXOR 225MG TABLET - PO daily 10/27/2017 00:82GWO7Xzbn: risperdone 0.25mg po tab bid and 0.5 hs10/27/2017 00:23 CWR9Dzzt: REQUIP 0.25MG TABLET - PO bid and 0.5 HS10/27/2017 00:23 MCF7Zxsb: fiorcet unk dose q4h prn 10/27/2017 00:23 EOD2Fset: IMITREX 50MG TABLET - PO prn 10/27/2017 00:27ARE1Dwra: PHENERGAN 25MG - PO prn 10/27/2017 00:23 CAS3Hdom: 10/27/17 10/27/2017 00:23 YOG3PDEDUMOVtjwqtc: Other Medical IVC Clot10/26/2017 21:30 GNB4Yfcnxkf: Other Medical DVT 10/26/2017 21:30 RXN5Rmzwhsx: Other Medical CVA WITH HEMMORHAGE 10/26/201721:30 OAC4Yrbafou: Other Medical PES 10/26/2017 21:30 XIC6Sgavjjq: Migraines 10/26/2017 21:30 HMD1Vryxbci: factor 5 deffinciency 10/26/2017 21:[address] [facility] PATIENT NAME: DOROTHEA RUTLEDGE [id number] Lisa Pearce MEDICAL REC #: [id number], [place] [address] DEPARTMENT CHART EMERGENCY DEPARTMENT PHYSICIANPAST SURGERY HISTSurgery: x2 10/26/2017 21:30 LXW0Yyfhuwg: Hysterectomy-complete 10/26/2017 21:30 BFN9Bhhdedm: Cholecystectomy 10/26/2017 21:30 YNH9Ehtswpd: right axillae bx 10/26/2017 21:30 HXO5Mwbfbmb: green filter 10/26/2017 21:30 FJZ8Axfpbtu: Appendectomy 10/26/2017 21:30 XON4Dgzvclv: ERCP x 2 10/26/2017 21:30 BSJ3Jcfpfgs: Bile Duct repair 10/26/2017 21:30 GED0CNPT SOCIAL HISTSocial History: Lives with family or significant other10/26/2017 21:30 TKB1Udbsbv History: Alcohol - None 10/26/2017 21:30 QDI8Mtvkqf History: Recreational Drugs - None 10/26/201721:30 TXJ0Xzolzr History: Smoker-1 PPD 10/26/2017 21:58UXI9Aumpig History: Denies Domestic Violence 10/26/201721:30 CHG9Oevvcq History: Denies thoughts of self harm.10/26/2017 21:30 JJK5Shoeep History: Have you traveled in the past month?Where NO 10/26/2017 21:30 HYE1QECY FINISHED CLOTH EXAMINER HISTSocial History: Gravida2 Para 2 Ab 10/26/2017 21:19VGE0Whijuo History: Hysterectomy-Complete 10/26/2017 21:24DYG7DLNPTFDVQKTOM* [facility] PATIENT NAME: DOROTHEA RUTLEDGE M[address] [facility] MEDICAL REC #: [id number], [place] [address] DEPARTMENT CHART EMERGENCY DEPARTMENT PHYSICIANImmunization: Flu Vaccine-no [...] =======10/26/2017 22:21 Hourly Rounding - Rounding 10/26/201722:22 ZYO4Gkubngvmaxs/Toileti ng YPain 7Position Comfortable YSafe Environment YFall Risk Change N010/26/2017 22:22 Patient Interaction - Allergy Band onPt. 10/26/2017 22:22 XYO353 22:22 Patient Interaction - Name Band on Pt10/26/2017 22:22 ODU532 22:22 Staff/ Patient Interaction - Calllight placed within reach. 10/26/2017 22:22 OHO223 22:22 Staff/ Patient Interaction -Introduced self and assessed patients needs. 10/26/201722:22 AHA107 22:22 Cardiac - court recording monitor initiated.10/26/2017 22:[address] [facility] PATIENT NAME: DOROTHEA RUTLEDGE M13[address] Lisa Pearce MEDICAL REC #: [id number], [place] [address] DEPARTMENT CHART EMERGENCY DEPARTMENT CXDIZIXQT42/07/2018 22:22 Cardiac - Cardiac monitorinterpretation nsr .10/26/2017 22:22 GOL986 22:22 Cardiac - Continuous Pulse Oximeterapplied. 10/26/2017 22:22 EYG434 23:27 Hourly Rounding - Rounding 10/26/201723:28 YWA4Amkxsrulpui/Toileti ng NPain 7Position Comfortable YSafe Environment YAssessment Note Dr. Breaux notified.Fall Risk Change N010/26/2017 23:41 Primary DOC Guide - A. Patient Bwypspp0110/26/2017 23:42 BUO3Nmuvqyg History Source PatientAvian Exposure - Been exposed [...] B. Fall RiskAssessment (Age andlt;65) 10/26/2017 23:42 QLR7Fdlo Risk Score 1-2 Points = Low Risk. 3-4 Points =Moderate Risk. 5 or more points = High Risk. 0Fall Score Greater andgt;= 3? No10/26/2017 23:42 Primary DOC Guide - D. PsychosocialAssessment 10/26/2017 23:42 JEO4Ubqs the Last 2 weeks, how often have you had littleinterest or pleasure in doing things (0) Not at AllIs Psychosocial Assessment Score 3 or more? If score is3 or more please consult ED Navigator! NoTotal Psychosocial Assessment Score 0Over the last 2 weeks, how often have you been feelingdown, depressed or hopeless (0) Not at All [facility] PATIENT NAME: DOROTHEA RUTLEDGE [id number] [facility] [address] Pearce MEDICAL REC #: [id number], [place] [address] DEPARTMENT CHART EMERGENCY DEPARTMENT BEQVZJDFZ13/07/2018 23:42 Primary DOC Guide - E. Family ViolenceAssessment 10/26/2017 23:42 MMR2Do you feel safe and well cared for: Yes10/27/2017 00:44 Hourly Rounding - Rounding 10/27/201700:44 ZAQ2Lvkjzmobbbe/Toileti ng NPain 5Position Comfortable YSafe Environment YFall Risk Change N010/27/2017 00:54 Admit/Discharge - Discharge infomationreviewed with pt 10/27/2017 00:54 QNQ074 00:54 Admit/Discharge - Ambulated withsteady gait home 10/27/2017 00:54 AMV9Qmnsp: with her friend to take her home =MEDICATIONS ======IV =====IV Fluid: B 10/26/2017 21:56 10/26/2017 21:37WUP5Jhdj #: 1 Fluid: Saline LockRate: ml/hr Location: wrist rightNdl Gauge: 20 # Attempts: 1Notes: No s/s of infiltration. Flushes well andaspirates blood.IV Fluid: E 10/26/2017 23:40 10/26/2017 23:31SEO5Gcpy #: 1 Rate: ml/hr Location: wrist rightNdl Gauge: 20 # Attempts: 1Notes: IV infiltrated during ct scan. Dressing applied.IV tip intact.IV Fluid: B 10/26/2017 22:21 10/26/2017 22:57BJX1Vlnr #: 2 Fluid: Saline LockRate: ml/hr Location: antecubital fossa rightNdl Gauge: 20 # Attempts: 1 [facility] PATIENT NAME: DOROTHEA RUTLEDGE [id number] [facility] [address] Pearce MEDICAL REC #: [id number], [place] [address] DEPARTMENT CHART EMERGENCY DEPARTMENT PHYSICIANNotes: No s/s of infiltration. Flushes well andaspirates blood.IV Fluid: E 10/26/2017 23:37 10/26/2017 23:80JXV0Ewpr #: 2 Rate: ml/hr Location: antecubitalfossa rightNdl Gauge: 20 # Attempts: 1Notes: IV site infiltrated during CT scan. Iv tipintact. Dressing applied.IV Fluid: B 10/26/2017 23:40 10/26/2017 23:54QGW1Janh #: 3 Fluid: Saline LockRate: ml/hr Location: arm rightNdl Gauge: 20 Notes: Started in CT scan. Flusheswell.IV Fluid: E 10/27/2017 00:40 10/27/2017 00:95ZYO3Ekyw #: 3 Rate: ml/hr Location: arm rightNdl Gauge: 20 Notes: IV tip intact. Dressingapplied. No s/s of infiltration. I AND O VITAL S VS -ROUTINE Time: 10/26/2017 21:23B/P: 125/89 - Left Upper Arm - Lying - Machine Pulse:93 - Monitor Resp: 20Sa02: 97 Room Air Temp: 98.50 F - Oral10/26/2017 21:30 JUQ7RT-Jhwd Time: 10/26/2017 21:23 Pain Level: 7010/26/2017 21:30 DCE3IM-WXD Time: 10/26/2017 21:23 Visual: 4 Verbal: 5 Motor:6 GCS Total: 15 10/26/2017 21:30 UMW8PP-BQ/WT Time: 10/26/2017 21:23 Ht: 162.5 cm StatedWeight: 81.7 kg Stated 10/26/2017 21:30 UBJ7DV-Hdcaay Time: 10/26/2017 21:23 10/26/2017 21:30 KGJ8HC-QSJ Time: 10/26/2017 21:23 10/26/2017 21:64RVL6UV-Ihzmo Time: 10/26/2017 21:23 map 104 10/26/201721:[address] [facility] PATIENT NAME: DOROTHEA RUTLEDGE [id number] Pearce [facility] REC #: [id number], [place] [address] DEPARTMENT CHART EMERGENCY DEPARTMENT PHYSICIANVS-ROUTINE Time: 10/26/2017 23:26B/P: 110/66 - Left Upper Arm - Lying - Machine Pulse:81 - Monitor Resp: 18Sa02: 98 Room Air 10/26/2017 23:26 SQD8LT-Fphl Time: 10/26/2017 23:26 Pain Level: 7010/26/2017 23:26 GTK7SF-CIX Time: 10/26/2017 23:26 10/26/2017 23:26 HTE0NN-AM/WT Time: 10/26/2017 23:26 10/26/2017 23:26 LGQ9WQ-Trwzex Time: 10/26/2017 23:26 10/26/2017 23:26 FWL0VY-SFN Time: 10/26/2017 23:26 10/26/2017 23:35OPI5XS-Rhzdm Time: 10/26/2017 23:26 MAP 81 10/26/201723:26 TNR8LB-UPZZYVO Time: 10/27/2017 00:42B/P: 110/68 - Left Upper Arm - Lying - Machine Pulse:75 - Monitor Resp: 16Sa02: 96 Room Air 10/27/2017 00:44 ZCT3WE-Ndxl Time: 10/27/2017 00:42 Pain Level: 00:44 EGE2PB-LGY Time: 10/27/2017 00:42 10/27/2017 00:44 EZW7OQ-WG/WT Time: 10/27/2017 00:42 10/27/2017 00:44 FNA2XM-Zlydmg Time: 10/27/2017 00:42 10/27/2017 00:44 YFU5AX-OGH Time: 10/27/2017 00:42 10/27/2017 00:02JWP0AI-Noofs Time: 10/27/2017 00:42 MAP 84 10/27/201700:44 MMR2 =ORDERS ====Discharge patient 10/27/2017 00:13N/AOrdered: 10/27/2017 00:11 By . OtherReviewed: 10/27/2017 00:13 By . OtherCoumadin (PO)(1mg) DOSE: 5 mgPO 10/27/2017 00:40N/AOrdered: 10/26/2017 23:46 By Peri Marrero Time: 10/27/2017 00:40 By Peri Bueno Time: 10/26/2017 23:48 DXR2Ukwkifrr (IV)*(2mg/ml) DOSE: 1 mgIV 10/27/2017 00:17 [facility] PATIENT NAME: DOROTHEA RUTLEDGE M[address] Lisa Pearce MEDICAL REC #: [id number], [place] [address] DEPARTMENT CHART EMERGENCY DEPARTMENT PHYSICIANN/AOrdered: 10/26/2017 23:46 By Peri Marrero Time: 10/27/2017 00:17 By Peri Bueno Time: 10/26/2017 23:48 WGC4Vnlroeemw (IVPB)(12.5mg/50ml NS) DOSE: 12.5 mgIV 10/27/201700:17N/AOrder ed: 10/26/2017 23:46 By Peri Stewardleted Time: 10/27/2017 00:17 By Peri JoeosNoted Time: 10/26/2017 23:48 IAO5JLKCYV ORDER: LIPA 10/26/2017 22:24NoneOrdered: 10/26/2017 22:23 Completed [...] only 10/26/2017 23:31N/AOrdered: 10/26/2017 21:57 By Peri Pierceompleted Time: 10/26/2017 23:31 By Peri JoeosIndication: Abdominal PainNoted Time: 10/26/2017 23:03Question: Are you or think you might be ?Answer: NOQuestion: Patient has history of true RCM allergy?Answer: NOCT chest with con for PE 10/26/2017 23:19N/A *[facility] PATIENT NAME: DOROTHE[facility] RUTLEDGE [facility] MEDICAL REC #: [id number], [place] [address] DEPARTMENT CHART EMERGENCY DEPARTMENT PHYSICIANOrdered: 10/26/2017 21:57 By Peri Pierceompleted Time: 10/26/2017 23:19 By Peri Wymandication: sob, history of PENoted Time: 10/26/2017 23:03Question: Are you or think you might be ?Answer: NOQuestion: Patient has history of true RCM allergy?Answer: NOLab: Add On Test (excluding POC tests) 10/26/201722:03N/AOrder ed: 10/26/2017 21:57 By Peri Bueno Time: 10/26/2017 22:03 JFW9Hemwwiro: Test to be added:Answer: liver function tests, lipaseIV hl10/26/2017 21:51N/AOrdered: 10/26/2017 21:49 By Peri Stewardletemariaa Time: 10/26/2017 21:50 By Peri Pierceardiac monitor 10/26/2017 21:51N/AOrdered: 10/26/2017 21:49 By Peri Marrero Time: 10/26/2017 21:50 By Peri BreauxZofran (IV)*(2mg/ml) DOSE: 4 mgIV 10/26/2017 22:03N/AOrdered: 10/26/2017 21:49 By Peri Stewardleted Time: 10/26/2017 22:02 By Peri Bueno Time: 10/26/2017 21:50 MMR2PT/INR order only if on coumadin/warfarin/Janto ven10/26/2017 22:09N/AOrdered: 10/26/2017 21:31 By ProtocolCompleted Time: 10/26/2017 22:09 By ProtocolNoted Time: 10/26/2017 21:50 BTA8Usdevpb Time: 10/26/2017 22:08BMP 10/26/2017 22:23N/AOrdered: 10/26/2017 21:31 By Protocol *[facility] PATIENT NAME: DOROTHEA RUTLEDGE M[address] [facility] [address] Pearce MEDICAL REC #: [id number], [place] [address] DEPARTMENT CHART EMERGENCY DEPARTMENT PHYSICIANCompleted Time: 10/26/2017 22:23 By ProtocolNoted Time: 10/26/2017 21:50 LEJ7Iwtrerb Time: 10/26/2017 22:23CBC with diff 10/26/2017 22:03N/AOrdered: 10/26/2017 21:31 By ProtocolCompleted Time: 10/26/2017 22:03 By ProtocolNoted Time: 10/26/2017 21:50 DPA2Ledyudd Time: 10/26/2017 22:03EKG and most recent EKG 10/26/2017 21:42N/AOrdered: 10/26/2017 21:31 By ProtocolCompleted Time: 10/26/2017 21:41 By ProtocolNoted Time: 10/26/2017 21:32 RJRO2 by cannula at 2L if SAT andlt;= 91% 10/26/2017 21:33N/AOrdered: 10/26/2017 21:31 By ProtocolNoted Time: 10/26/2017 21:33 VBK7NUP troponin 10/26/2017 21:51N/AOrdered: 10/26/2017 21:31 By ProtocolNoted Time: 10/26/2017 21:50 MMR2 =DISCHARGE =======Diagnosis: slightly elevated liver function testswith history of same, subtherapeutic INR of 1.2, pulmonarynodule seen on CT, known to patient 10/27/2017 00:12Disposition: Time: 10/27/2017 00:11By: Peri Rodas Time: 10/27/2017 00:55Type: DischargeCondition: Stable for admission/discharge/tra nsferafter emergency evaluation/treatment Category: *NOTAPPLICABLEConcurred : 10/27/2017 00:13 Referral:10/27/2017 00:12 ==PRESCRIPTIONS======== [facility] PATIENT NAME: DOROTHEA RUTLEDGE M[address] Lisa Pearce MEDICAL REC #: [id number], [place] [address] DEPARTMENT CHART EMERGENCY DEPARTMENT PHYSICIAN ======CHARGES =======SIGNATURE======= Peri Mike [facility] ANTHONYTUST[facility] H[facility] MEDICAL CENTERrichmond Arroyo MMR2 [facility] PATIENT NAME: DOROTHEA RUTLEDGE M1320 Lisa Pearce MEDICAL REC #: [id number], [place] [address] DEPARTMENT CHART EMERGENCY DEPARTMENT PHYSICIAN [facility] ED Documentation This is a preliminar y report only, as the practitioner review and authentication has not occurred. [facility] EKGon 10-27-2017 EKG Procedure Date and Time: 10/26/17 2132Test Reason : STATBlood Pressure : / mmHGVent. [...] Breaux Confirmed By:Valerie MO M.D.FACC ___ MiguelDDandT: 10/26/17 2132TDandT:[facility] PATIENT NAME: DOROTHEA RUTLEDGE [facility] MEDICAL REC #: [id number], [place] [address] DATE:DISCHARGE DATE: 10/27/17ATTENDING PHY: Peri Breaux MDELECTROCARDIOGRAM REPORTCLBcc:[facility] PATIENT NAME: DOROTHEA RUTLEDGE [facility] MEDICAL REC #: [id number], [place] [address] DATE:DISCHARGE DATE: 10/27/17ATTENDING PHY: Peri Breaux MDELECTROCARDIOGRAM REPORT Normal [facility] ELECTROCARDIOGRAM REPORT Normal [facility] ESTon 10-27-2017 IF AMER Greater than 60 Normal [facility] Comment on above: Order Comment: Óscar s: M Performed By: #### L 500.62851, L500.67637, L500.69661, L500.83540 ####[facility] [id number] [place], [place] [address]Cx# [phone] IF non-AFR AMER Greater than 60 Normal [facility] Comment on above: Order Comment: Óscar s: M Performed By: #### L 500.64373, L500.81540, L500.91876, L500.10446 ####[facility] [id number] [place], [place] [address]Ml# [phone] LIPASEon 10-27-2017 Lipase 74 U/L Normal 73-393 [facility] Comment on above: Order Comment: Campu s: M Performed By: #### L 500.01203, L500.91536, L500.92001, L500.40193 ####[facility] [id number] [place], [place] [address]Hc# [phone] LIVERon 10-27-2017 Alanine aminotransferase (ALT) 173 U/L High 13-61 [facility] Comment on above: Order Comment: Campu s: M Result Comment: RESU LTS MAY BE FALSELY DEPRESSED AFTER THE ADMINISTRATION OFSULFASALAZINE AND/OR SULFAPYRIDINE. Performed By: #### L 500.34772, L500.09988, L500.82764, L500.73884 ####[facility] [id number] [place], [place] [address]Vr# [phone] Albumin 3.7 g/dL Normal 3.2-5.0 [facility] Comment on above: Order Comment: Campu s: M Performed By: #### L 500.01434, L500.81055, L500.62451, L500.31960 ####[facility] [id number] [place], [place] [address]Vr# [phone] Albumin/Globulin Ratio 1.1 {ratio} Normal 0.8-2.0 [facility] Comment on above: Order Comment: Campu s: M Performed By: #### L 500.62655, L500.76177, L500.94240, L500.59280 ####[facility] [id number] [place], [place] [address]Gz# [phone] ALK PHOS 186 U/L High 45-117 [facility] Comment on above: Order Comment: Campu s: M Performed By: #### L 500.45865, L500.01344, L500.42220, L500.26655 ####[facility] [id number] [place], [place] [address]Wm# [phone] BILI DIRECT 0.05 MG/DL Normal 0.00-0.20 [facility] Comment on above: Order Comment: Campu s: M Performed By: #### L 500.01770, L500.94073, L500.65201, L500.00927 ####[facility] [id number] [place], [place] [address]Yz# [phone] BILI TOTAL 0.2 MG/DL Normal 0.2-1.0 [facility] Comment on above: Order Comment: Campu s: M Performed By: #### L 500.36440, L500.15508, L500.81537, L500.73116 ####[facility] [id number] [place] [address]Lj# [phone] Globulin 3.5 g/dL Normal 2.2-4.2 [facility] Comment on above: Order Comment: Campu s: M Performed By: #### L 500.78827, L500.63803, L500.01412, L500.13137 ####[facility] [id number] [place] [address] 613[address]Ra# [phone] Protein 7.2 g/dL Normal 6.0-8.5 [facility] Comment on above: Order Comment: Campu s: M Performed By: #### L 500.47479, L500.80185, L500.36986, L500.50163 ####[facility] [id number] [place] [address] 14[address]Vc# [phone] SGOT (AST) 54 U/L High 8-34 [facility] Comment on above: Order Comment: Campu s: M Result Comment: Mode rate Hemolysis, Result may be falsely increased.RESULTS MAY BE FALSELY DEPRESSED AFTER THE ADMINISTRATION OFSULFASALAZINE AND/OR SULFAPYRIDINE. Performed By: #### L 500.56559, L500.39972, L500.04506, L500.83241 ####[facility] [id number] [place], [place] [address]Zx# [phone] PTon 10-27-2017 INR Coag RelTime (PPP) 1.2 {INR} High 0.9-1.1 [facility] Comment on above: Order Comment: Ramirezu s: M Result Comment: Sony mmended PT INR therapeutic range for ocean transportation intermediary andprophylactic therapy is 2.0 - 3.0. For heart valve andshunt patients the range is 2.5 - 3.5. Performed By: #### L 300.92617 ####[facility] [id number] [place], [place] [address]Vq# [phone] PTS 13.1 SECONDS High 9.4-12.0 [facility] Comment on above: Order Comment: Óscar s: M Performed By: #### L 300.84479 ####[facility] [id number] [place], [place] [address]Fi# [phone] TROPONIN I POCon 10-27-2017 Troponin I.cardiac mass conc 0.00 ng/mL Normal 0.0-0.06 [facility] Comment on above: Result Comment: 0.0 - [...] Signature on File ----Signed By: Jonnie Hilliard [email or web address] tated: 10/26/2017 11:18 PMSigned: 10/26/2017 11:30 PM Reported By: JONNIE HILLIARD M.D. Signed By: JONNIE HILLIARD M.D. [facility] CT ANG THOR W/POST PROCon CT ANG [...] Signature on File ----Signed By: Jonnie Hilliard [email or web address] tated: 10/26/2017 11:04 PMSigned: 10/26/2017 11:18 PM Reported By: JONNIE HILLIARD M.D. Signed By: JONNIE HILLIARD M.D. [facility] [place] Auto Diffon 10-10-2017 Basophils Auto #/vol (Bld) 0.1 E3/mcL Normal 0.0-0.2 [facility] Comment on above: Order Comment: Order Added by Discern Expert. Performed By: #### 8 [id number] ####BELKIS Urinalysis Automated [address] [address] Basophils/100 WBC Auto (Bld) 1.2 % Normal 0.0-2.0 [facility] Comment on above: Order Comment: Order Added by Discern Expert. Performed By: #### 8 [id number] ####BELKIS Urinalysis Automated Xicumhptoc3955 [place] [address] Eos Absolute 0.3 E3/mcL Normal 0.0-0.7 [facility] Comment on above: Order Comment: Order Added by Discern Expert. Performed By: #### 8 [id number] ####BELKIS Urinalysis Automated [address] [place], [place] [address] Eosinophils/100 leukocytes 6.0 % Normal 0.0-11.0 [facility] Comment on above: Order Comment: Order Added by Discern Expert. Performed By: #### 8 [id number] ####BELKIS Urinalysis Automated [address] [place] [address] Lymphocytes 1.6 E3/mcL Normal 1.2-3.4 [facility] Comment on above: Order Comment: Order Added by Discern Expert. Performed By: #### 8 [id number] ####BELKIS Urinalysis Automated Acbldusxcd[address] [place] [address] Lymphocytes/100 leukocytes 28.4 % Normal 20.0-55.0 [facility] Comment on above: Order Comment: Order Added by Discern Expert. Performed By: #### 8 [id number] ####BELKIS Urinalysis Automated Vemqixurha[address] [place] [address] Torrance Absolute 0.4 E3/mcL Normal 0.0-0.7 [facility] Comment on above: Order Comment: Order Added by Discern Expert. Performed By: #### 8 [id number] ####BELKIS Urinalysis Automated Ioswtkhphv[address] [place] [address] Monocytes/100 leukocytes 7.5 % Normal 0.0-10.0 [facility] Comment on above: Order Comment: Order Added by Discern Expert. Performed By: #### 8 [id number] ####BELKIS Urinalysis Automated [address]raks[address] [place], [place] [address] Neutro Absolute 3.2 E3/mcL Normal 1.4-6.5 [facility] Comment on above: Order Comment: Order Added by Discern Expert. Performed By: #### 8 [id number] ####BELKIS Urinalysis Automated Ehysvybsrk9408 [place] [address] Neutro Auto 56.9 % Normal 37.0-75.0 [facility] Comment on above: Order Comment: Order Added by Discern Expert. Performed By: #### 8 [id number] ####BELKIS Urinalysis Automated Dwdtmkkjfq7018 [place] [address] BMPon 10-10-2017 BUN/Creatinine Ratio 23.3 ratio Normal 5.4-30.0 [facility] Comment on above: Performed By: #### 8 [id number] ####BELKIS Urinalysis Automated [address]ayzibhcsi67[address] [place] [address] Creatinine 0.6 mg/dL Normal 0.6-1.3 [facility] Comment on above: Performed By: #### 8 [id number] ####BELKIS Urinalysis Automated Wugedmbfqq[address] [place] [address] Urea nitrogen 14 mg/dL Normal 7-18 [facility] Comment on above: Performed By: #### 8 [id number] ####BELKIS Urinalysis Automated Ieqfffhept9037[address] [place] [address] Calcium 9.0 mg/dL Normal 8.4-10.2 [facility] Comment on above: Performed By: #### 8 [id number] ####BELKIS Urinalysis Automated Sychjhmvna[address] [place] [address] Chloride 111 mmol/L High 98-107 [facility] Comment on above: Performed By: #### 8 7507822 ####BELKIS Urinalysis Automated Weshxrokwv7946 [place] [address] CO2 22.9 mmol/L Low 24.0-30.0 [facility] Comment on above: Performed By: #### 8 [id number] ####BELKIS Urinalysis Automated Uapxfcweyf4311 [place] [address] Glucose mass conc 95 mg/dL Normal 70-99 [facility] Comment on above: Performed By: #### 8 [id number] ####BELKIS Urinalysis Automated Gddrltsgnk[address]24[address] [place] [address] Potassium molar conc 4.3 mmol/L Normal 3.5-5.1 [facility] Comment on above: Performed By: #### 8 [id number] ####BELKIS Urinalysis Automated Nrcxzlytqw6634 [place] [address] Sodium 140 mmol/L Normal 136-145 [facility] Comment on above: Performed By: #### 8 [id number] ####BELKIS Urinalysis Automated Ankyeqvmtr1418 [place] [address] CBC w/ Auto Diffon 8 Erythrocyte distribution width Auto Ratio (RBC) 13.3 % Normal 11.5-14.5 [facility] Comment on above: Performed By: #### 8 [id number] ####BELKIS Urinalysis Automated Lmecyzxpax0109[address] [place] [address] Erythrocytes (RBC) 3.96 E6/mcL Normal 3.90-5.40 [facility] Comment on above: Performed By: #### 8 [id number] ####BELKIS Urinalysis Automated Octulysqvf599[address] [place] [address] Hematocrit (HCT) 38.8 % Normal 36.0-48.0 [facility] Comment on above: Performed By: #### 8 [id number] ####BELKIS Urinalysis Automated [address]hgjyjlu[address] [place], [place] [address] Hemoglobin mass conc (Bld) 13.2 g/dL Normal 12.0-16.0 [facility] Comment on above: Performed By: #### 8 [id number] ####BELKIS Urinalysis Automated Cacplppery[address] [place] [address] MCH 33.3 pg High 27.0-31.0 [facility] Comment on above: Performed By: #### 8 [id number] ####BELKIS Urinalysis Automated Ogmvmmdegx[address] [place] [address] MCHC mass conc (RBC) 34.0 g/dL Normal 33.0-37.0 [facility] Comment on above: Performed By: #### 8 [id number] ####BELKIS Urinalysis Automated Jkgfqkikyb[address] [place], [place] [address] MCV 97.8 fL Normal 78.0-100.0 [facility] Comment on above: Performed By: #### 8 4487740 ####BELKIS Urinalysis Automated Hnabbgxuuo[address] [place] [address] Platelet mean volume (PMV) 6.7 fL Low 7.4-11.0 [facility] Comment on above: Performed By: #### 8 [id number] ####BELKIS Urinalysis Automated Fgztiddbcl[address] [place] [address] Platelets 267 E3/mcL Normal 130-400 [facility] Comment on above: Performed By: #### 8 [id number] ####BELKIS Urinalysis Automated Lezerrkajz70[address] [place] [address] WBC (Leukocytes) 5.7 E3/mcL Normal 3.6-11.0 [facility] Comment on above: Performed By: #### 8 [id number] ####BELKIS Urinalysis Automated Qqqjeslrst3557[address] [place] [address] Hep Func Panelon 10-10-2017 Alanine aminotransferase (ALT) 125 Int._Unit/L High 10-40 [facility] Comment on above: Performed By: #### 8 [id number] ####BELKIS Urinalysis Automated Enecuygnmv8120[address] [place] [address] Albumin 3.6 g/dL Normal 3.2-5.0 [facility] Comment on above: Performed By: #### 8 [id number] ####BELKIS Urinalysis Automated Jqkkmbatso[address] [place] [address] Albumin/Globulin Ratio 1.4 {ratio} Normal 1.1-1.9 [facility] Comment on above: Performed By: #### 8 4963555 ####BELKIS Urinalysis Automated Wysqvllqkj[address] [place] [address] Alk Phos 97 Int._Unit/L Normal 42-121 [facility] Comment on above: Performed By: #### 8 0938765 ####BELKIS Urinalysis Automated Eebcvlmcgg46[address] [place], [place] [address] Aspartate aminotransferase (AST) 61 Int._Unit/L High 10-42 [facility] Comment on above: Performed By: #### 8 5396536 ####BELKIS Urinalysis Automated Hsftvwfoej40[address] [place] [address] Bili Direct <.10 Normal .00-.20 [facility] Comment on above: Performed By: #### 8 [id number] ####BELKIS Urinalysis Automated Kcmnsjorup4467 [place] [address] Bili Indirect >0.2 Normal [facility] Comment on above: Result Comment: No e stablished ranges available for the Indirect Biliruben. Performed By: #### 8 [id number] ####BELKIS Urinalysis Automated Ampmgadnil2220 [place] [address] Bili Total 0.3 mg/dL Normal 0.2-1.0 [facility] Comment on above: Performed By: #### 8 9944394 ####BELKIS Urinalysis Automated [address]qjsiswya[address] [place] [address] Globulin 2.6 g/dL Normal 2.0-4.0 [facility] Comment on above: Performed By: #### 8 5003446 ####BELKIS Urinalysis Automated A[address]ikrcezcb[address] [place] [address] Protein 6.2 g/dL Low 6.4-8.3 [facility] Comment on above: Performed By: #### 8 4309536 ####BELKIS Urinalysis Automated Iwrgftonio[address] [place] [address] Lipase Levelon 10-10-2017 Lipase Lvl 20 U/L Normal 8-57 [facility] Comment on above: Performed By: #### 2 954923 ####BELKIS Hematology Automated G[address]wghnfux[address] [place] [address] PTon 10-10-2017 INR Coag RelTime (PPP) 4.2 {INR} Critically abnormal 1.0-1.2 [facility] Comment on above: Result Comment: Crit ical Result INR:4.2 Called to JOHNATHAN KABA at: 05:49:38 by:SANTOS Read back by:JOHNATHAN TYSON Recommended Therapeuptic Ranges: Prophylaxis/treatment of DVT and PE?2.0-3.0 Prevention of systemic embolism?.2.0-3.0 Mechanical prosthetic values?2.5-3.5 CRITICAL VALUES?.>4.0 Performed By: #### 8 [id number] ####BELKIS Urinalysis Automated [address]lbytsdu[address] [place] [address] Prothrombin time (PT) Coag time (PPP) 37.6 second(s) High 11.6-14.6 [facility] Comment on above: Result Comment: Crirufina ical Result PT:37.6 Called to JOHNATHAN KABA at: 05:49:38 by:SANTOS Read back by:JOHNATHAN KABA Performed By: #### 8 [id number] ####BELKIS Urinalysis Automated Nsbmsatjld[address] [place] [address] UA Completeon 10-10-2017 UA Blood 1+ Abnormal Negative [facility] Comment on above: Performed By: #### 2 [id number] ####BELKIS Hematology Automated Gtnamxyksw[address] [place] [address] UA Bacteria Trace Abnormal None [facility] Comment on above: Performed By: #### 2 769256 ####BLEKIS Hematology Automated Beulcunmyd[address] [place] [address] UA Clarity Clear Normal Clear [facility] Comment on above: Performed By: #### 2 364448 ####BELKIS Hematology Automated Jbfbbkuzle[address] [place] [address] UA Leuk Est Negative Normal Negative [facility] Comment on above: Performed By: #### 2 457613 ####BELKIS Hematology Automated Elpxglnjae3[address] [place] [address] UA Mucous Trace Abnormal Trace [facility] Comment on above: Performed By: #### 2 821841 ####BELKIS Hematology Automated Anhnaeclgy92[address] [place] [address] UA Nitrite Negative Normal Negative [facility] Comment on above: Performed By: #### 2 783562 ####BELKIS Hematology Automated Myigpdpezo[address] [place] [address] UA pH 6.0 Normal 4.6-8.0 [facility] Comment on above: Performed By: #### 2 509681 ####BELKIS Hematology Automated Owqcnaisii[address] [place] [address] UA Protein Negative Normal Negative [facility] Comment on above: Performed By: #### 2 726370 ####BELKIS Hematology Automated Dwmsowqfke6819 [place] [address] UA Spec Grav 1.014 Normal 1.003-1.030 [facility] Comment on above: Performed By: #### 2 000821 ####BELKIS Hematology Automated Wktpwdukmo7292 [place] [address] UA Squam Epithelial 0-5 Normal 0-5 [facility] Comment on above: Performed By: #### 2 333813 ####BELKIS Hematology Automated Quxudaqilj4025 [place] [address] UA Urobilinogen Negative Normal [facility] Comment on above: Performed By: #### 2 117153 ####BELKIS Hematology Automated Cmvmooipip4057 [place] [address] UA WBC 0-5 Normal 0-5 [facility] Comment on above: Performed By: #### 2 327697 ####BELKIS Hematology Automated Enpwtefjrw0082 [place] [address] Urine, color Yellow Normal Yellow [facility] Comment on above: Performed By: #### 2 799322 ####BELKIS Hematology Automated Ansorvxdhr6927 [place] [address] Urine, erythrocytes 3-5 Abnormal 0-3 [facility] Comment on above: Performed By: #### 2 431107 ####BELKIS Hematology Automated Dtxzbpajlv0463 [place] [address] Urine, glucose Negative Normal Negative [facility] Comment on above: Performed By: #### 2 724971 ####BELKIS Hematology Automated Pyyogderhz4736 [place] [address] Urine, ketones presence Negative Normal Negative [facility] Comment on above: Performed By: #### 2 158359 ####BELKIS Hematology Automated Oatkeapqpv0359 [place] [address] Urine, urobilinogen Negative Normal Negative [facility] Comment on above: Performed By: #### 2 638156 ####BELKIS Hematology Automated Orgtnxqqdg7567 [place] [address] eGFRon 10-10-2017 eGFR (non-black) mL/min/{1.73_m2} Normal [facility] Comment on above: Order Comment: Order added by Discern Expert. Performed By: #### 8 [id number] ####BELKIS Urinalysis Automated Ughptehtmd0664 [place] [address] Auto Diffon 08-11-2017 Basophils Auto #/vol (Bld) 0.1 E3/mcL Normal 0.0-0.2 [facility] Comment on above: Order Comment: Order Added by Discern Expert. Performed By: #### 2 399292 ####BELKIS TsgCbhu0393 [place] [address] Basophils/100 WBC Auto (Bld) 1.3 % Normal 0.0-2.0 [facility] Comment on above: Order Comment: Order Added by Discern Expert. Performed By: #### 2 793920 ####BELKIS VyiUqty3555 [place] [address] Eos Absolute 0.2 E3/mcL Normal 0.0-0.7 [facility] Comment on above: Order Comment: Order Added by Discern Expert. Performed By: #### 2 191050 ####BELKIS ZhpOzfk9125 [place] [address] Eosinophils/100 leukocytes 3.1 % Normal 0.0-11.0 [facility] Comment on above: Order Comment: Order Added by Discern Expert. Performed By: #### 2 637310 ####BELKIS KdsFvap9778 [place] [address] Lymphocytes 2.0 E3/mcL Normal 1.2-3.4 [facility] Comment on above: Order Comment: Order Added by Discern Expert. Performed By: #### 2 402707 ####BELKIS RqfSlin6025 [place] [address] Lymphocytes/100 leukocytes 40.1 % Normal 20.0-55.0 [facility] Comment on above: Order Comment: Order Added by Discern Expert. Performed By: #### 2 372463 ####BELKIS CoaVope4575 [place] [address] Tor[place] Absolute 0.5 E3/mcL Normal 0.0-0.7 [facility] Comment on above: Order Comment: Order Added by Discern Expert. Performed By: #### 2 416948 ####BELKIS Longo1025 [place] [address] Monocytes/100 leukocytes 9.9 % Normal 0.0-10.0 [facility] Comment on above: Order Comment: Order Added by Discern Expert. Performed By: #### 2 103185 ####BELKIS Longo1025 [place] [address] Neutro Absolute 2.3 E3/mcL Normal 1.4-6.5 [facility] Comment on above: Order Comment: Order Added by Discern Expert. Performed By: #### 2 785089 ####BELKIS Longo1025 [place] [address] Neutro Auto 45.6 % Normal 37.0-75.0 [facility] Comment on above: Order Comment: Order Added by Discern Expert. Performed By: #### 2 432334 ####BELKIS Longo1025 [place] [address] BMPon 08-11-2017 BUN/Creatinine Ratio 21.4 ratio Normal 5.4-30.0 [facility] Comment on above: Performed By: #### 2 697543 ####BELKIS FomIdeb9923 [place] [address] Creatinine 0.7 mg/dL Normal 0.6-1.3 [facility] Comment on above: Performed By: #### 2 850420 ####BELKIS BlyEvoa6412 [place] [address] Urea nitrogen 15 mg/dL Normal 7-18 [facility] Comment on above: Performed By: #### 2 357616 ####BELKIS CheathamNgzYckm1577 [place] [address] Calcium 9.2 mg/dL Normal 8.4-10.2 [facility] Comment on above: Performed By: #### 2 339790 ####BELKISAbigail CheathamWcwGxvg3579 [place] [address] Chloride 100 mmol/L Normal 98-107 [facility] Comment on above: Performed By: #### 2 332286 ####BELKISAbigail CheathamZymJotu7835 [place] [address] CO2 23.3 mmol/L Low 24.0-30.0 [facility] Comment on above: Performed By: #### 2 120884 ####BELKIS IieGzql1182 [place] [address] Glucose mass conc 107 mg/dL High 70-99 [facility] Comment on above: Performed By: #### 2 099963 ####BELKIS SixAalo1111 [place] [address] Potassium molar conc 2.9 mmol/L Low 3.5-5.1 [facility] Comment on above: Performed By: #### 2 996130 ####BELKIS XbjJxjb7980 [place] [address] Sodium 136 mmol/L Normal 136-145 [facility] Comment on above: Performed By: #### 2 606034 ####BELKISAbigail CheathamZuhAnai3536 [place] [address] CBC w/ Auto Diffon Erythrocyte distribution width Auto Ratio (RBC) 12.5 % Normal 11.5-14.5 [facility] Comment on above: Performed By: #### 2 111633 ####BELKISAbigail CheathamXcfBwip0081 [place] [address] Erythrocytes (RBC) 4.42 E6/mcL Normal 3.90-5.40 [facility] Comment on above: Performed By: #### 2 890207 ####BELKISAbigail CheathamZpsHbvz8900 [place] [address] Hematocrit (HCT) 42.2 % Normal 36.0-48.0 [facility] Comment on above: Performed By: #### 2 271728 ####BELKISAbigail CheathamRclNcma2486 [place] [address] Hemoglobin mass conc (Bld) 14.9 g/dL Normal 12.0-16.0 [facility] Comment on above: Performed By: #### 2 900865 ####BELKISAbigail CheathamYhpKave3426 [place] [address] MCH 33.6 pg High 27.0-31.0 [facility] Comment on above: Performed By: #### 2 712636 ####BELKIS Longo1025 [place] [address] MCHC mass conc (RBC) 35.2 g/dL Normal 33.0-37.0 [facility] Comment on above: Performed By: #### 2 473127 ####BELKIS Longo1025 [place] [address] MCV 95.7 fL Normal 78.0-100.0 [facility] Comment on above: Performed By: #### 2 132865 ####BELKIS Longo1025 [place] [address] Platelet mean volume (PMV) 6.8 fL Low 7.4-11.0 [facility] Comment on above: Performed By: #### 2 322769 ####BELKIS Longo1025 [place] [address] Platelets 281 E3/mcL Normal 130-400 [facility] Comment on above: Performed By: #### 2 518897 ####BELKIS Longo1025 [place] [address] WBC (Leukocytes) 5.1 E3/mcL Normal 3.6-11.0 [facility] Comment on above: Performed By: #### 2 113456 ####BELKIS Longo1025 [place] [address] CT Abdomen/Pelvis w/ Contras ton 08-11-2017 CT [...] place. FINAL REPORT Dictated: 08/11/2017 11:46 am Manish Milton MD PSigned (Electronic Signature): 08/11/2017 11:46 amSigned by: Manish Milton MD Technologist: MLL Normal [facility] Hep Func Panelon 08-11-2017 Alanine aminotransferase (ALT) 291 Int._Unit/L High 10-40 [facility] Comment on above: Performed By: #### 8 2257577 ####BELKIS Urinalysis Automated Wxnhgpjixt0808 [place] [address] Albumin 4.9 g/dL Normal 3.2-5.0 [facility] Comment on above: Performed By: #### 8 4548377 ####BELKIS Urinalysis Automated Zjxjfrrboy0837 [place] [id number] Albumin/Globulin Ratio 1.6 {ratio} Normal 1.1-1.9 [facility] Comment on above: Performed By: #### 8 7168813 ####BELKIS Urinalysis Automated Gymurfwpzm2931 [place] [address] Alk Phos 123 Int._Unit/L High 42-121 [facility] Comment on above: Performed By: #### 8 3767063 ####BELKIS Urinalysis Automated Uhjubvuqlp1990 [place] [address] Aspartate aminotransferase (AST) 222 Int._Unit/L High 10-42 [facility] Comment on above: Performed By: #### 8 1883185 ####BELKIS Urinalysis Automated Mffgeoxhqj[address] [place], [place] [address] Bili Direct <.10 Normal .00-.20 [facility] Comment on above: Performed By: #### 8 6577109 ####BELKIS Urinalysis Automated Y[address]klzllpk[address] [place] [address] Bili Indirect >0.5 Normal [facility] Comment on above: Result Comment: No e stablished ranges available for the Indirect Biliruben. Performed By: #### 8 9404553 ####BELKIS Urinalysis Automated Qguccrwcme[address] [place] [address] Bili Total 0.6 mg/dL Normal 0.2-1.0 [facility] Comment on above: Performed By: #### 8 2001380 ####BELKIS Urinalysis Automated Ckzjczvujy[address] [place] [address] Globulin 3.0 g/dL Normal 2.0-4.0 [facility] Comment on above: Performed By: #### 8 2337290 ####BELKIS Urinalysis Automated Fznvpmnzps43[address] [place] [address] Protein 7.9 g/dL Normal 6.4-8.3 [facility] Comment on above: Performed By: #### 8 4532657 ####BELKIS Urinalysis Automated Wzutvifmhc[address] [place] [address] Lactic Acidon 08-11-2017 Lactic Acid Lvl 1.1 mmol/L Normal 0.5-2.2 [facility] Comment on above: Performed By: #### 2 480063 ####BELKIS SzgFmiy[address] [place] [address] Lipase Levelon 08-11-2017 Lipase Lvl 18 U/L Normal 8-57 [facility] Comment on above: Performed By: #### 8 5613890 ####BELKIS Urinalysis Automated Jmwztzssyw[address] [place] [address] PTon 08-11-2017 INR Coag RelTime (PPP) 2.8 {INR} High 1.0-1.2 [facility] Comment on above: Result Comment: INR Recommended Therapeuptic Ranges: Prophylaxis/treatment of DVT and PE?2.0-3.0 Prevention of systemic embolism?.2.0-3.0 Mechanical prosthetic values?2.5-3.5 CRITICAL VALUES?.>4.0 Performed By: #### 2 574944 ####BELKIS Hematology Automated Ycumadwdyp4300 [place] [address] Prothrombin time (PT) Coag time (PPP) 27.8 second(s) High 11.6-14.6 [facility] Comment on above: Performed By: #### 2 311841 ####BELKIS Hematology Automated Hagzagzrog[address] [place] [address] PTTon 08-11-2017 aPTT 34.7 second(s) Normal 23.2-36.4 [facility] Comment on above: Performed By: #### 2 536832 ####BELKIS Hematology Automated [address]qbcgbxnrh[address] [place] [address] PTT Control Ratioon 08-11-20 17 PTT Ratio 1.2 ratio Normal 0.8-1.2 [facility] Comment on above: Order Comment: Order added by Discern Expert. Performed By: #### 8 3350052 ####BELKIS Hematology Automated [address]rse[address] [place] [address] U Drug Screenon 08-11-2017 U Amph Scr Negative Normal [facility] Comment on above: Result Comment: Resu lts for medical use only. Confirmation of positive results will be done when requested. Specimens are kept for one week. Performed By: #### 2 607433 ####BELKIS JuhRscn4236 [place] [address] U Angy Scr Negative Normal [facility] Comment on above: Performed By: #### 2 914108 ####BELKIS CmxGcfy8982 [place] [address] U Benzodia Scr Negative Normal [facility] Comment on above: Performed By: #### 2 696659 ####BELKIS PtyBfqs2527 [place] [address] U Cannab Scr Negative Normal [facility] Comment on above: Performed By: #### 2 382734 ####BELKIS UxnRprx7050 [place] [address] U Cocaine Scr Negative Normal [facility] Comment on above: Performed By: #### 2 518173 ####BELKIS ZjmRgbl9862 [place] [address] U Opiate Scr Negative Normal [facility] Comment on above: Performed By: #### 2 721256 ####BELKIS ApiMweu4279 [place] [address] U PCP Scr Negative Normal [facility] Comment on above: Performed By: #### 2 632987 ####BELKIS MumBzdu1693 [place] [address] UA Completeon 08-11-2017 UA Blood 1+ Abnormal Negative [facility] Comment on above: Performed By: #### 8 9323642 ####BELKIS Urinalysis Automated Pthbexovoo2044 [place] [address] UA Clarity Clear Normal Clear [facility] Comment on above: Performed By: #### 8 3943335 ####BELKIS Urinalysis Automated Gddqhnqgyd1704 [place] [address] UA Hyal Cast 0-2 Normal 0-2 [facility] Comment on above: Performed By: #### 8 7597259 ####BELKIS Urinalysis Automated Waxhwgfbth4445 [place] [address] UA Leuk Est Negative Normal Negative [facility] Comment on above: Performed By: #### 8 2438446 ####BELKIS Urinalysis Automated Wyqahshals8924 [place] [address] UA Mucous Trace Abnormal Trace [facility] Comment on above: Performed By: #### 8 3391665 ####BELKIS Urinalysis Automated Yxafmbpnol6950 [place] [address] UA Nitrite Negative Normal Negative [facility] Comment on above: Performed By: #### 8 [id number] ####BELKIS Urinalysis Automated Inkfbqgjlj4156 [place] [address] UA pH 5.0 Normal 4.6-8.0 [facility] Comment on above: Performed By: #### 8 0717350 ####BELKIS Urinalysis Automated Ufinarglxf4115 [place] [address] UA Protein Negative Normal Negative [facility] Comment on above: Performed By: #### 8 5763892 ####BELKIS Urinalysis Automated Ofgqayuytr0396 [place] [address] UA Spec Grav 1.003 Normal 1.003-1.030 [facility] Comment on above: Performed By: #### 8 [id number] ####BELKIS Urinalysis Automated [id number] [place] [address] UA Squam Epithelial 0-5 Normal 0-5 [facility] Comment on above: Performed By: #### 8 [id number] ####BELKIS Urinalysis Automated [id number] [place] [address] UA Urobilinogen Negative Normal [facility] Comment on above: Performed By: #### 8 [id number] ####BELKIS Urinalysis Automated [id number] [place] [address] UA WBC 0-5 Normal 0-5 [facility] Comment on above: Performed By: #### 8 [id number] ####BELKIS Urinalysis Automated [id number] [place] [address] Urine, color Colorless Normal Yellow [facility] Comment on above: Performed By: #### 8 [id number] ####BELKIS Urinalysis Automated [id number] [place] [address] Urine, erythrocytes 0-3 Normal 0-3 [facility] Comment on above: Performed By: #### [id number] ####BELKIS Urinalysis Automated [id number] [place] [address] Urine, glucose Negative Normal Negative [facility] Comment on above: Performed By: #### 8 [id number] ####BELKIS Urinalysis Automated [id number] [place] [address] Urine, ketones presence Negative Normal Negative [facility] Comment on above: Performed By: #### 8 [id number] ####BELKIS Urinalysis Automated [id number] [place] [address] Urine, urobilinogen Negative Normal Negative [facility] Comment on above: Performed By: #### 8 [id number] ####BELKIS Urinalysis Automated [id number] [place] [address] eGFRon 08-11-2017 eGFR (non-black) mL/min/{1.73_m2} Normal [facility] Comment on above: Order Comment: Order added by Discern Expert. Performed By: #### 8 [id number] ####BELKIS Urinalysis Automated [id number] [place] [address] XR Wrist 3+ Views Lefton XR Wrist 3+ Views Left Exam Date/Time:06/14/2017 15:20 EDTReason for Exam:Pain, TraumaticReportLEFT WRIST5 ViewsHISTORY: Injury.FINDINGS: No fracture is seen. The carpals are intact. The intercarpal distanceis within normal limitsIMPRESSION:No fracture or dislocation. FINAL REPORT Dictated: 06/14/2017 4:00 pm Sree Ware MDigned (Electronic Signature): 06/14/2017 4:00 pmSigned by: Sree Ware MD Technologist: [facility] Normal [facility] Vital Signs Date Time Vital Sign Value Performing Clinician Facility 06-16-2024 11:11-0400 Body mass index (BMI) [Ratio] 40.11 kg/m2 Odilia Gunn APRN.CNP Work Phone: [facility] 06-16-2024 11:11-0400 Body temperature 97.3 [degF] Odilia Gunn APRN.RAIL ASSEMBLER Work Phone: [facility] 06-16-2024 11:11-0400 Body weight 102.7 kg Odilia Gunn APRN.RAIL ASSEMBLER Work Phone: [facility] 06-16-2024 11:11-0400 Diastolic blood pressure 80 mm[Hg] Odilia Gunn APRN.RAIL ASSEMBLER Work Phone: [facility] 06-16-2024 11:11-0400 Heart rate 103 /min Odilia Gunn APRN.RAIL ASSEMBLER Work Phone: [facility] 06-16-2024 11:11-0400 Respiratory rate 20 /min Odilia Luis A LOCOMOTIVE INSPECTOR.RAIL ASSEMBLER Work Phone: [facility] 06-16-2024 11:11-0400 SaO2% (BldA) [Mass fraction] 98 % Odilia Gunn LOCOMOTIVE INSPECTOR.RAIL ASSEMBLER Work Phone: [facility] 06-16-2024 11:11-0400 Systolic blood pressure 120 mm[Hg] Odilia Gunn LOCOMOTIVE INSPECTOR.RAIL ASSEMBLER Work Phone: [facility] 06-08-2024 14:18-0400 Body mass index (BMI) [Ratio] 41.98 kg/m2 Laury Magness LOCOMOTIVE INSPECTOR.RAIL ASSEMBLER Work Phone: [facility] 06-08-2024 14:18-0400 Body weight 107.5 kg Laury Magness LOCOMOTIVE INSPECTOR.RAIL ASSEMBLER Work Phone: [facility] 06-08-2024 14:18-0400 Diastolic blood pressure 78 mm[Hg] Laury Magness LOCOMOTIVE INSPECTOR.RAIL ASSEMBLER Work Phone: [facility] 06-08-2024 14:18-0400 Systolic blood pressure 134 mm[Hg] Laury Magness LOCOMOTIVE INSPECTOR.RAIL ASSEMBLER Work Phone: [facility] 05-31-2024 14:57-0400 Body mass index (BMI) [Ratio] 40.92 kg/m2 Lynn Maier MD Work Phone: [facility] 05-31-2024 14:57-0400 Body weight 104.78 kg Lynn Maier MD Work Phone: [facility] 05-31-2024 14:57-0400 Diastolic blood pressure 82 mm[Hg] Lynn Maier MD Work Phone: [facility] 05-31-2024 14:57-0400 Systolic blood pressure 124 mm[Hg] Lynn Maier MD Work Phone: [facility] 03-05-2024 18:30-0400 Diastolic blood pressure 97 mm[Hg] Colton Hicks MD Work Phone: [facility] 03-05-2024 18:30-0400 Heart rate 95 /min Colton Hicks MD Work Phone: [facility] 03-05-2024 18:30-0400 Respiratory rate 17 /min Colton Hicks MD Work Phone: [facility] 03-05-2024 18:30-0400 SaO2% (BldA) [Mass fraction] 97 % Colton Hicks MD Work Phone: [facility] 03-05-2024 18:30-0400 Systolic blood pressure 129 mm[Hg] Colton Hicks MD Work Phone: [facility] 03-05-2024 17:26-0400 Body height 162.6 cm Colton Hicks MD Work Phone: [facility] 03-05-2024 17:26-0400 Body mass index (BMI) [Ratio] 38.28 kg/m2 Colton Hicks MD Work Phone: [facility] 03-05-2024 17:26-0400 Body temperature 98.6 [degF] Colton Hicks MD Work Phone: [facility] 03-05-2024 17:26-0400 Body weight 101.15 kg Colton Hicks MD Work Phone: [facility] 03-02-2024 15:37-0400 Body temperature 97.3 [degF] Mike Land MD Work Phone: [facility] 03-02-2024 15:37-0400 Diastolic blood pressure 69 mm[Hg] Mike Land MD Work Phone: [facility] 03-02-2024 15:37-0400 Heart rate 95 /min Mike Land MD Work Phone: [facility] 03-02-2024 15:37-0400 Respiratory rate 14 /min Mike Land MD Work Phone: [facility] 03-02-2024 15:37-0400 SaO2% (BldA) [Mass fraction] 94 % Mike Land MD Work Phone: [facility] 03-02-2024 15:37-0400 Systolic blood pressure 104 mm[Hg] Mike Land MD Work Phone: [facility] 02-28-2024 03:53-0400 Body height 162.6 cm Mike Land MD Work Phone: [facility] 02-28-2024 03:53-0400 Body mass index (BMI) [Ratio] 40.19 kg/m2 Mike Land MD Work Phone: [facility] 02-28-2024 03:53-0400 Body weight 106.2 kg Mike Land MD Work Phone: [facility] 12-08-2023 13:08-0400 Body temperature 96.69 [degF] Nancy Agrawal MD Work Phone: [facility] 12-08-2023 13:08-0400 Diastolic blood pressure 80 mm[Hg] Nancy Agrawal MD Work Phone: [facility] 12-08-2023 13:08-0400 Heart rate 97 /min Nancy Agrawal MD Work Phone: [facility] 12-08-2023 13:08-0400 Respiratory rate 14 /min Nancy Agrawal MD Work Phone: [facility] 12-08-2023 13:08-0400 SaO2% (BldA) [Mass fraction] 96 % Nancy Agrawal MD Work Phone: [facility] 12-08-2023 13:08-0400 Systolic blood pressure 139 mm[Hg] Nancy Agrawal MD Work Phone: [facility] 12-05-2023 15:03-0400 Body height 160 cm Nancy Agrawal MD Work Phone: [facility] 12-05-2023 15:03-0400 Body mass index (BMI) [Ratio] 40.75 kg/m2 Nancy Agrawal MD Work Phone: [facility] 12-05-2023 15:03-0400 Body weight 104.33 kg Nancy Agrawal MD Work Phone: [facility] 12-05-2023 07:24-0400 Body height 160 cm Uvaldo Chavez MD Work Phone: [facility] 12-05-2023 07:24-0400 Body mass index (BMI) [Ratio] 40.74 kg/m2 Uvaldo Chavez MD Work Phone: [facility] 12-05-2023 07:24-0400 Body temperature 97 [degF] Uvaldo Chavez MD Work Phone: [facility] 12-05-2023 07:24-0400 Body weight 104.33 kg Uvaldo Chavez MD Work Phone: [facility] 12-05-2023 07:24-0400 Diastolic blood pressure 84 mm[Hg] Uvaldo Chavez MD Work Phone: [facility] 12-05-2023 07:24-0400 Heart rate 86 /min Uvaldo Chavez MD Work Phone: [facility] 12-05-2023 07:24-0400 Respiratory rate 20 /min Uvaldo Chavez MD Work Phone: [facility] 12-05-2023 07:24-0400 SaO2% (BldA) [Mass fraction] 96 % Uvaldo Chavez MD Work Phone: [facility] 12-05-2023 07:24-0400 Systolic blood pressure 126 mm[Hg] Uvaldo Chavez MD Work Phone: [facility] 11-15-2023 12:21-0500 Body temperature 98.1 [degF] Chi Galvin MD Work Phone: [facility] 11-15-2023 12:21-0500 Diastolic blood pressure 72 mm[Hg] Chi Galvin MD Work Phone: [facility] 11-15-2023 12:21-0500 Heart rate 99 /min Chi Galvin MD Work Phone: [facility] 11-15-2023 12:21-0500 Respiratory rate 16 /min Chi Galvin MD Work Phone: [facility] 11-15-2023 12:21-0500 SaO2% (BldA) [Mass fraction] 94 % Chi Galvin MD Work Phone: [facility] 11-15-2023 12:21-0500 Systolic blood pressure 106 mm[Hg] Chi Galvin MD Work Phone: [facility] 11-15-2023 05:54-0500 Body mass index (BMI) [Ratio] 41.4 kg/m2 Chi Galvin MD Work Phone: [facility] 11-15-2023 05:54-0500 Body weight 106 kg Chi Galvin MD Work Phone: [facility] 11-10-2023 19:02-0500 Body height 160 cm Chi Galvin MD Work Phone: [facility] 11-10-2023 16:52-0500 Body temperature 37.0 Chi Galvin MD Work Phone: [facility] Comment on above: NOTE: Patient Results are Not Corrected for Temperature 11-10-2023 16:49-0500 Body temperature 37.0 degrees Celsius COLTON KURT [facility] Comment on above: Result Comment: NOTE: Patient Results ar e Not Corrected for Temperature Performed By: #### 2 [id number] ####ANDI Cotter ([id number])[facility])[address] [place] [address] 10-27-2023 10:45-0500 Body height 160 cm Tianna Rasmussen MD Work Phone: [facility] 10-27-2023 10:45-0500 Body mass index (BMI) [Ratio] 40.74 kg/m2 Tianna Rasmussen MD Work Phone: [facility] 10-27-2023 10:45-0500 Body temperature 96.4 [degF] Tianna Rasmussen MD Work Phone: [facility] 10-27-2023 10:45-0500 Body weight 104.33 kg Tianna Rasmussen MD Work Phone: [facility] 10-27-2023 10:45-0500 Diastolic blood pressure 83 mm[Hg] Tianna Rasmussen MD Work Phone: [facility] 10-27-2023 10:45-0500 Heart rate 97 /min Tianna Rasmussen MD Work Phone: [facility] 10-27-2023 10:45-0500 Respiratory rate 20 /min Tianna Rasmussen MD Work Phone: [facility] 10-27-2023 10:45-0500 SaO2% (BldA) [Mass fraction] 96 % Tianna Rasmussen MD Work Phone: [facility] 10-27-2023 10:45-0500 Systolic blood pressure 116 mm[Hg] Tianna Rasmussen MD Work Phone: [facility] 10-18-2023 11:00-0500 Diastolic blood pressure 72 mm[Hg] [facility] 10-18-2023 11:00-0500 Heart rate 87 /min [facility] 10-18-2023 11:00-0500 Respiratory rate 18 /min [facility] 10-18-2023 11:00-0500 SaO2% (BldA) [Mass fraction] 98 % [facility] 10-18-2023 11:00-0500 Systolic blood pressure 113 mm[Hg] [facility] 10-18-2023 08:10-0500 Body temperature 96.8 [degF] [facility] 10-17-2023 18:36-0500 Diastolic Blood Pressure Non-Invasive 82 mm[Hg] ADINA WHITT MD [place] 10-17-2023 18:36-0500 Heart rate 85 /min ADINA WHITT MD [place] 10-17-2023 18:36-0500 Respiratory rate 16 /min ADINA WHITT MD [place] 10-17-2023 18:36-0500 Systolic Blood Pressure Non-Invasive 124 mm[Hg] ADINA WHITT MD [place] 10-17-2023 15:51-0500 Blood Pressure Location ADINA WHITT MD [place] 10-17-2023 15:51-0500 Body height 160 cm ADINA WHITT MD [place] 10-17-2023 15:51-0500 Body temperature 97.34 [degF] ADINA WHITT MD [place] 10-17-2023 15:51-0500 Body weight 104.5 kg ADINA WHITT MD [place] 10-17-2023 15:51-0500 Diastolic Blood Pressure Non-Invasive 104 mm[Hg] ADINA WHITT MD [place] 10-17-2023 15:51-0500 Heart rate 112 /min ADINA WHITT MD [place] 10-17-2023 15:51-0500 Respiratory rate 18 /min ADINA WHITT MD [place] 10-17-2023 15:51-0500 Systolic Blood Pressure Non-Invasive 149 mm[Hg] ADINA WHITT MD [place] 08-26-2023 13:59-0500 Diastolic blood pressure 67 mm[Hg] [address] 08-26-2023 13:59-0500 Heart rate 74 /min [address] 08-26-2023 13:59-0500 Respiratory rate 15 /min [address] 08-26-2023 13:59-0500 SaO2% (BldA) [Mass fraction] 98 % [address] 08-26-2023 13:59-0500 Systolic blood pressure 110 mm[Hg] [address] 08-26-2023 11:23-0500 Body temperature 96.4 [degF] [address] 08-03-2023 08:17-0500 Body height 160 cm Colton Hicks MD Work Phone: [facility] 08-03-2023 08:17-0500 Body mass index (BMI) [Ratio] 39.01 kg/m2 Colton Hicks MD Work Phone: [facility] 08-03-2023 08:17-0500 Body temperature 97.3 [degF] Colton Hicks MD Work Phone: [facility] 08-03-2023 08:17-0500 Body weight 99.88 kg Colton Hicks MD Work Phone: [facility] 08-03-2023 08:17-0500 Diastolic blood pressure 73 mm[Hg] Colton Hicks MD Work Phone: [facility] 08-03-2023 08:17-0500 Heart rate 70 /min Colton Hicks MD Work Phone: [facility] 08-03-2023 08:17-0500 Respiratory rate 24 /min Colton Hicks MD Work Phone: [facility] 08-03-2023 08:17-0500 SaO2% (BldA) [Mass fraction] 98 % Colton Hicks MD Work Phone: [facility] 08-03-2023 08:17-0500 Systolic blood pressure 111 mm[Hg] Colton Hicks MD Work Phone: [facility] 06-18-2023 15:15-0400 Body temperature 97 [degF] Angela Miles MD Work Phone: [facility] 06-18-2023 15:15-0400 Diastolic blood pressure 104 mm[Hg] Angela Miles MD Work Phone: [facility] 06-18-2023 15:15-0400 Heart rate 81 /min Angela Miles MD Work Phone: [facility] 06-18-2023 15:15-0400 Respiratory rate 17 /min Angela Miles MD Work Phone: [facility] 06-18-2023 15:15-0400 SaO2% (BldA) [Mass fraction] 95 % Angela Miles MD Work Phone: [facility] 06-18-2023 15:15-0400 Systolic blood pressure 138 mm[Hg] Angela Miles MD Work Phone: [facility] 06-17-2023 02:23-0400 Body height 159.9 cm Angela Miles MD Work Phone: [facility] 06-17-2023 02:23-0400 Body mass index (BMI) [Ratio] 37.55 kg/m2 Angela Miles MD Work Phone: [facility] 06-17-2023 02:23-0400 Body weight 96 kg Angela Miles MD Work Phone: [facility] 06-03-2023 16:26-0400 Diastolic Blood Pressure Non-Invasive 78 1 YOANA WEAVER MD [place] 06-03-2023 16:26-0400 Heart rate 75 /min YOANA WEAVER MD [place] 06-03-2023 16:26-0400 Respiratory rate 16 /min YOANA WEAVER MD [place] 06-03-2023 16:26-0400 Systolic Blood Pressure Non-Invasive 116 1 YOANA WEAVER MD [place] 06-03-2023 14:52-0400 Body temperature 97.16 [degF] YOANA WEAVER MD [place] 06-03-2023 14:52-0400 Body weight 97.7 kg YOANA WEAVER MD [place] 06-03-2023 14:52-0400 Diastolic Blood Pressure Non-Invasive 80 1 YOANA WEAVER MD [place] 06-03-2023 14:52-0400 Heart rate 93 /min YOANA WEAVER MD [place] 06-03-2023 14:52-0400 Respiratory rate 16 /min YOANA WEAVER MD [place] 06-03-2023 14:52-0400 Systolic Blood Pressure Non-Invasive 121 1 YOANA WEAVER MD [place] 05-25-2023 09:31-0400 Body temperature 36.6 [degF] Cj Rivera [facility] Work [facility]: 05-25-2023 09:31-0400 Diastolic blood pressure 89 mm[Hg] Cj Rivera Work Phone: [facility] Work Phone: 05-25-2023 09:31-0400 Heart rate 89 /min Cj Rivera Work Phone: [facility] Work Phone: 05-25-2023 09:31-0400 SaO2% (BldA) [Mass fraction] 96 % Cj Rivera Work Phone: [facility] Work Phone: 05-25-2023 09:31-0400 Systolic blood pressure 136 mm[Hg] Cj Rivera Work Phone: [facility] Work Phone: 05-25-2023 09:29-0400 Body height 160.02 cm Cj Rivera Work Phone: [facility] Work Phone: 05-25-2023 09:29-0400 Body mass index (BMI) [Ratio] 38.62 kg/m2 Cj Rivera Work Phone: [facility] Work Phone: 05-25-2023 09:29-0400 Body surface area Derived from formula 2.01 m2 Cj Rivera Work Phone: [facility] Work Phone: 05-25-2023 09:29-0400 Body weight 98.88 kg Cj Rivera Work Phone: [facility] Work Phone: 05-25-2023 09:29-0400 Respiratory rate 16 /min Cj Rivera Work Phone: [facility] Work Phone: 05-23-2023 04:42-0400 Diastolic Blood Pressure Non-Invasive [address] ALEXEY CHEEK DO [place] 05-23-2023 04:42-0400 Heart rate 98 /min DR ALEXEY CHEEK DO [place] 05-23-2023 04:42-0400 Respiratory rate 18 /min DR ALEXEY CHEEK DO [place] 05-23-2023 04:42-0400 Systolic Blood Pressure Non-Invasive [address] ALEXEY CHEEK DO [place] 05-23-2023 03:57-0400 Diastolic Blood Pressure Non-Invasive [address] ALEXEY CHEEK DO [place] 05-23-2023 03:57-0400 Heart rate 105 /min DR ALEXEY CHEEK DO [place] 05-23-2023 03:57-0400 Respiratory rate 16 /min DR ALEXEY CHEEK DO [place] 05-23-2023 03:57-0400 Systolic Blood Pressure Non-Invasive [address] ALEXEY CHEEK DO [place] 05-23-2023 02:41-0400 Body temperature 98.24 [degF] DR ALEXEY CHEEK DO [place] 05-23-2023 02:41-0400 Diastolic Blood Pressure Non-Invasive [address] ALEXEY CHEEK DO [place] 05-23-2023 02:41-0400 Heart rate 121 /min DR ALEXEY CHEEK DO [place] 05-23-2023 02:41-0400 Respiratory rate 18 /min DR ALEXEY CHEEK DO [place] 05-23-2023 02:41-0400 Systolic Blood Pressure Non-Invasive [address] ALEXEY CHEEK DO [place] 05-19-2023 14:54-0400 Body temperature 98.78 [degF] LETHA CID MD [place] 05-19-2023 14:54-0400 Diastolic Blood Pressure Non-Invasive 87 1 LETHA CID MD [place] 05-19-2023 14:54-0400 Heart rate 108 /min LETHA CID MD [place] 05-19-2023 14:54-0400 Respiratory rate 16 /min LETHA CID MD [place] 05-19-2023 14:54-0400 Systolic Blood Pressure Non-Invasive 110 1 LETHA CID MD [place] 05-16-2023 15:15-0400 Body temperature 96.8 [degF] Cj Rivera Other Phone: [facility] 05-16-2023 15:15-0400 Diastolic blood pressure 76 mm[Hg] Cj Rivera Other Phone: [facility] 05-16-2023 15:15-0400 Heart rate 97 /min Cj Rivera Other Phone: [facility] 05-16-2023 15:15-0400 Respiratory rate 18 /min Cj Rivera Other Phone: [facility] 05-16-2023 15:15-0400 SaO2% (BldA) [Mass fraction] 95 % Cj Rivera Other Phone: [facility] 05-16-2023 15:15-0400 Systolic blood pressure 107 mm[Hg] Cj Rivera Other Phone: [facility] 05-09-2023 10:36-0400 Diastolic Blood Pressure Non-Invasive 63 1 YOANA WEAVER MD [place] 05-09-2023 10:36-0400 Heart rate 89 /min YOANA WEAVER MD [place] 05-09-2023 10:36-0400 Respiratory rate 16 /min YOANA WEAVER MD [place] 05-09-2023 10:36-0400 Systolic Blood Pressure Non-Invasive 104 1 YOANA WEAVER MD [place] 05-09-2023 10:13-0400 Diastolic Blood Pressure Non-Invasive 60 1 YOANA WEAVER MD [place] 05-09-2023 10:13-0400 Heart rate 86 /min YOANA WEAVER MD [place] 05-09-2023 10:13-0400 Respiratory rate 16 /min YOANA WEAVER MD [place] 05-09-2023 10:13-0400 Systolic Blood Pressure Non-Invasive 106 1 YOANA WEAVER MD [place] 05-09-2023 08:07-0400 Body temperature 98.78 [degF] YOANA WEAVER MD [place] 05-09-2023 08:07-0400 Body weight 96.5 kg YOANA WEAVER MD [place] 05-09-2023 08:07-0400 Diastolic Blood Pressure Non-Invasive 68 1 YOANA WEAVER MD [place] 05-09-2023 08:07-0400 Heart rate 93 /min YOANA WEAVER MD [place] 05-09-2023 08:07-0400 Respiratory rate 16 /min YOANA WEAVER MD [place] 05-09-2023 08:07-0400 Systolic Blood Pressure Non-Invasive 132 1 YOANA WEAVER MD [place] 04-30-2023 00:40-0400 Body temperature 96.91 [degF] Lisbethkerri Davies DO [facility] 04-30-20[facility] 00:40-0400 Diastolic blood pressure 85 mm[Hg] Lisbeth Samson DO Work Phone: [employer] 04-30-2023 00:40-0400 Heart rate 97 /min Lisbeth Samson DO Work Phone: [employer] 04-30-2023 00:40-0400 SaO2% (BldA) [Mass fraction] 94 % Lisbeth Samson DO Work Phone: [employer] 04-30-2023 00:40-0400 Systolic blood pressure 129 mm[Hg] Lisbeth Samson DO Work Phone: [employer] 04-30-2023 00:32-0400 Respiratory rate 15 /min Lisbeth Samson DO [facility] 04-29-2023 21:21-0400 Diastolic Blood Pressure Non-Invasive 68 1 MOLINA QUIROZ DO [place] 04-29-2023 21:21-0400 Heart rate 92 /min MOLINA JIMKA DO [place] 04-29-2023 21:21-0400 Respiratory rate 18 /min MOLINA QUIROZ DO [place] 04-29-2023 21:21-0400 Systolic Blood Pressure Non-Invasive 103 1 MOLINA JIMKA DO [place] 04-29-2023 12:45-0400 Blood Pressure Cuff Size MOLINA JIMKA DO [place] 04-29-2023 12:45-0400 Blood Pressure Location MOLINA JIMKA DO [place] 04-29-2023 12:45-0400 Blood Pressure Method MOLINA QUIROZ DO [place] 04-29-2023 12:45-0400 Body temperature 98.78 [degF] MOLINA HERRERAESKA DO [place] 04-29-2023 12:45-0400 Diastolic Blood Pressure Non-Invasive 98 1 MOLINA QUIROZ DO [place] 04-29-2023 12:45-0400 Heart rate 102 /min MOLINA QUIROZ DO [place] 04-29-2023 12:45-0400 Respiratory rate 18 /min MOLINA JIMKA DO [place] 04-29-2023 12:45-0400 Systolic Blood Pressure Non-Invasive 140 1 MOLINA JIMKA DO [place] 04-28-2023 09:52-0400 Body temperature 97.7 [degF] Cj Rivera Other Phone: [facility] 04-28-2023 09:52-0400 Diastolic blood pressure 79 mm[Hg] Cj Rivera Other Phone: [facility] 04-28-2023 09:52-0400 Heart rate 93 /min Cj Rivera Other Phone: [facility] 04-28-2023 09:52-0400 Respiratory rate 17 /min Cj Thompsonkellie Other Phone: [facility] 04-28-2023 09:52-0400 SaO2% (BldA) [Mass fraction] 96 % Cj Rivera Other Phone: [facility] 04-28-2023 09:52-0400 Systolic blood pressure 119 mm[Hg] Cj Lorkellie Other Phone: [facility] 04-25-2023 16:40-0400 Diastolic Blood Pressure Non-Invasive 74 1 WIN ALLRED MD [place] 04-25-2023 16:40-0400 Heart rate 76 /min WIN ALLRED MD [place] 04-25-2023 16:40-0400 Respiratory rate 16 /min WIN ALLRED MD [place] 04-25-2023 16:40-0400 Systolic Blood Pressure Non-Invasive 136 1 WIN ALLRED MD [place] 04-25-2023 12:00-0400 Body temperature 98.6 [degF] WIN ALLRED MD [place] 04-25-2023 12:00-0400 Diastolic Blood Pressure Non-Invasive 69 1 WIN ALLRED MD [place] 04-25-2023 12:00-0400 Heart rate 77 /min WIN ALLRED MD [place] 04-25-2023 12:00-0400 Systolic Blood Pressure Non-Invasive 118 1 WIN ALLRED MD [place] 04-25-2023 06:35-0400 Diastolic Blood Pressure Non-Invasive 91 1 WIN ALLRED MD [place] 04-25-2023 06:35-0400 Heart rate 74 /min WIN ALLRED MD [place] 04-25-2023 06:35-0400 Respiratory rate 18 /min WIN ALLRED MD [place] 04-25-2023 06:35-0400 Systolic Blood Pressure Non-Invasive 126 1 WIN ALLRED MD [place] 04-25-2023 03:27-0400 Reason For Taking VItal Signs WIN ALLRED MD [place] 04-25-2023 01:38-0400 Reason For Taking VItal Signs WIN ALLRED MD [place] 04-25-2023 00:24-0400 Body temperature 99.14 [degF] WIN ALLRED MD [place] 04-25-2023 00:24-0400 Body weight 96.4 kg WIN ALLRED MD [place] 04-02-2023 22:58-0400 Body temperature 99.14 [degF] MOLINA VALLE MD FACP [facility] 04-02-2023 22:58-0400 Diastolic Blood Pressure Non-Invasive 81 1 MOLINA VALLE MD FACP [facility] 04-02-2023 22:58-0400 Heart rate 84 /min MOLINA VALLE MD FACP [facility] 04-02-2023 22:58-0400 Respiratory rate 19 /min MOLINA VALLE MD FACP [facility] 04-02-2023 22:58-0400 Systolic Blood Pressure Non-Invasive 147 1 MOLINA VALLE MD FACP [address] [place] [address] 04-02-2023 19:56-0400 Heart rate 79 /min MOLINA VALLE MD FACP [address] [place] [address] 04-02-2023 19:56-0400 Respiratory rate 19 /min MOLINA VALLE MD FACP [address] [place] [address] 04-02-2023 14:21-0400 Body temperature 98.24 [degF] MOLINA VALLE MD FACP [address] [place] [address] 04-02-2023 14:21-0400 Diastolic Blood Pressure Non-Invasive 79 1 MOLINA VALLE MD FACP [address] [place] [address] 04-02-2023 14:21-0400 Heart rate 79 /min MOLINA VALLE MD FACP [address] [place] [address] 04-02-2023 14:21-0400 Respiratory rate 18 /min MOLINA VALLE MD FACP [address] [place] [address] 04-02-2023 14:21-0400 Systolic Blood Pressure Non-Invasive 119 1 MOLINA VALLE MD FACP [address] [place] [address] 04-02-2023 07:04-0400 Heart rate 70 /min MOLINA VALLE MD FACP [address] [place] [address] 04-02-2023 06:38-0400 Blood Pressure Location MOLINA VALLE MD FACP [address] [place] [address] 04-02-2023 06:38-0400 Blood Pressure Method MOLINA VALLE MD FACP [address] [place] [address] 04-02-2023 06:38-0400 Body temperature 97.88 [degF] MOLINA VALLE MD FACP [address] [place] [address] 04-02-2023 06:38-0400 Diastolic Blood Pressure Non-Invasive 78 1 MOLINA VALLE MD FACP [address] [place] [address] 04-02-2023 06:38-0400 Mean blood pressure 94 mm[Hg] MOLINA VALLE MD FACP [facility] 04-02-2023 06:38-0400 Reason For Taking VItal Signs MOLINA VALLE MD FACP [facility] 04-02-2023 06:38-0400 Systolic Blood Pressure Non-Invasive 129 1 MOLINA VALLE MD FACP [address] [place] [address] 04-01-2023 14:41-0400 Blood Pressure Cuff Size MOLINA VALLE MD FACP [address] [place] [address] 04-01-2023 14:41-0400 Blood Pressure Location MOLINA VALLE MD FACP [address] [place] [address] 04-01-2023 14:41-0400 Blood Pressure Method MOLINA VALLE MD FACP [address] [place] [address] 04-01-2023 14:41-0400 Reason For Taking VItal Signs MOLINA VALLE MD FACP [facility] 04-01-2023 14:14-0400 Reason For Taking VItal Signs MOLINA VALLE MD FACP [facility] 04-01-2023 14:05-0400 Body height 160 cm MOLINA VALLE MD FACP [address] [place] [address] 04-01-2023 14:05-0400 Body weight 100.2 kg MOLINA VALLE MD FACP [address] [place] [address] 04-01-2023 14:05-0400 Body weight 39.14 kg/m2 MOLINA VALLE MD FACP [address] [place] [address] 04-01-2023 13:46-0400 Blood Pressure Location MOLINA VALLE MD FACP [address] [place] [address] 04-01-2023 13:46-0400 Blood Pressure Method MOLINA VALLE MD FACP [address] [place] [address] 04-01-2023 13:46-0400 Mean blood pressure 79 mm[Hg] MOLINA VALLE MD FACP [facility] 03-11-2023 15:07-0400 Body temperature 98.24 [degF] SUJATHA HERNANDEZ LOCOMOTIVE INSPECTOR[employer]RAIL [employer] [place] 03-11-2023 15:07-0400 Diastolic Blood Pressure Non-Invasive 78 1 SUJATHA HERNANDEZ LOCOMOTIVE INSPECTOR-RAIL ASSEM[employer]ER [place] 03-11-2023 15:07-0400 Heart rate 68 /min SUJATHA HERNANDEZ LOCOMOTIVE INSPECTOR-RAIL ASSEM[employer]ER [place] 03-11-2023 15:07-0400 Reason For Taking VItal Signs SUJATHA HERNANDEZ LOCOMOTIVE INSPECTOR-RAIL ASSEM[employer]ER [place] 03-11-2023 15:07-0400 Respiratory rate 18 /min SUJATHA HERNANDEZ LOCOMOTIVE INSPECTOR-RAIL ASSEM[employer]ER [place] 03-11-2023 15:07-0400 Systolic Blood Pressure Non-Invasive 119 1 SUJATHA HERNANDEZ LOCOMOTIVE INSPECTOR-RAIL ASSEM[employer]ER [place] 03-11-2023 11:06-0400 Body temperature 97.88 [degF] SUJATHA HERNANDEZ LOCOMOTIVE INSPECTOR-RAIL ASSEMBLER [place] 03-11-2023 11:06-0400 Diastolic Blood Pressure Non-Invasive 76 1 SUJATHA HERNANDEZ LOCOMOTIVE INSPECTOR-RAIL ASSEM[employer] [place] 03-11-2023 11:06-0400 Heart rate 67 /min SUJATHA HERNANDEZ LOCOMOTIVE INSPECTOR-RAIL ASSEM[employer] [place] 03-11-2023 11:06-0400 Reason For Taking VItal Signs SUJATHA HERNANDEZ LOCOMOTIVE INSPECTOR-RAIL ASSEM[employer]ER [place] 03-11-2023 11:06-0400 Respiratory rate 18 /min SUJATHA HERNANDEZ LOCOMOTIVE INSPECTOR-RAIL ASSEM[employer]ER [place] 03-11-2023 11:06-0400 Systolic Blood Pressure Non-Invasive 106 1 SUJATHAANNETTE HERNANDEZ LOCOMOTIVE INSPECTOR-RAIL ASSEMBLER [place] 03-11-2023 08:43-0400 Heart rate 66 /min SUJATHA DAVID LOCOMOTIVE INSPECTOR-RAIL ASSEM[employer]ER [place] 03-11-2023 08:05-0400 Body temperature 97.88 [degF] SUJATHA HERNANDEZ LOCOMOTIVE INSPECTOR-RAIL ASSEMBLER [place] 03-11-2023 08:05-0400 Diastolic Blood Pressure Non-Invasive 97 1 SUJATHA HERNANDEZ LOCOMOTIVE INSPECTOR-RAIL ASSEM[employer] [place] 03-11-2023 08:05-0400 Heart rate 69 /min SUJATHA HERNANDEZ LOCOMOTIVE INSPECTOR-RAIL ASSEM[employer] [place] 03-11-2023 08:05-0400 Reason For Taking VItal Signs SUJATHA HERNANDEZ LOCOMOTIVE INSPECTOR-RAIL ASSEMBLER [place] 03-11-2023 08:05-0400 Respiratory rate 18 /min SUJATHA HERNANDEZ LOCOMOTIVE INSPECTOR-RAIL ASSEMBLER [place] 03-11-2023 08:05-0400 Systolic Blood Pressure Non-Invasive 137 1 SUJATHA DAVID LOCOMOTIVE INSPECTOR-RAIL ASSEMBLER [place] 03-11-2023 03:26-0400 Heart rate 70 /min SUJATHA HERNANDEZ LOCOMOTIVE INSPECTOR-RAIL ASSEMBLER [place] 03-10-2023 23:52-0400 Heart rate 63 /min SUJATHA HERNANDEZ LOCOMOTIVE INSPECTOR-RAIL ASSEMBLER [place] 03-10-2023 06:25-0400 Heart rate 68 /min SUJATHA DAVID LOCOMOTIVE INSPECTOR-RAIL ASSEM[employer]ER [place] 03-08-2023 19:11-0400 Blood Pressure Cuff Size SUJATHA DAVID LOCOMOTIVE INSPECTOR-RAIL ASSEM[employer]ER [place] 03-08-2023 19:11-0400 Blood Pressure Location SUJATHA DAVID LOCOMOTIVE INSPECTOR-RAIL ASSEM[employer] [place] 03-08-2023 19:11-0400 Blood Pressure Method SUJATHA DAVID LOCOMOTIVE INSPECTOR-RAIL ASSEM[employer]ER [place] 03-08-2023 14:40-0400 Heart rate 70 /min SUJATHA HERNANDEZ LOCOMOTIVE INSPECTOR-RAIL ASSEM[employer]ER [place] 03-08-2023 10:59-0400 Heart rate 62 /min SUJATHA DAVID LOCOMOTIVE INSPECTOR-RAIL ASSEMBLER [place] 03-07-2023 23:09-0400 Body height 160 cm SUJATHA DAVID LOCOMOTIVE INSPECTOR-RAIL ASSEM[employer]ER [place] 03-07-2023 23:09-0400 Body weight 98.1 kg SUJATHA DAVID LOCOMOTIVE INSPECTOR-RAIL ASSEM[employer] [place] 03-07-2023 23:09-0400 Body weight 38.32 kg/m2 SUJATHA DAVID LOCOMOTIVE INSPECTOR-RAIL ASSEMBLER [place] 01-25-2023 15:45-0400 Body temperature 98.06 [degF] LETHA CID MD [place] 01-25-2023 15:45-0400 Diastolic Blood Pressure Non-Invasive 78 1 LETHA CID MD [place] 01-25-2023 15:45-0400 Heart rate 84 /min LETHA CID MD [place] 01-25-2023 15:45-0400 Respiratory rate 20 /min LETHA CID MD [place] 01-25-2023 15:45-0400 Systolic Blood Pressure Non-Invasive 136 1 LETHA CID MD [place] 01-25-2023 14:09-0400 Diastolic Blood Pressure Non-Invasive 74 1 LETHA CID MD [place] 01-25-2023 14:09-0400 Heart rate 59 /min LETHA CID MD [place] 01-25-2023 14:09-0400 Respiratory rate 13 /min LETHA CID MD [place] 01-25-2023 14:09-0400 Systolic Blood Pressure Non-Invasive 140 1 LETHA CID MD [place] 01-25-2023 13:00-0400 Diastolic Blood Pressure Non-Invasive 79 1 LETHA CID MD [place] 01-25-2023 13:00-0400 Heart rate 60 /min LETHA CID MD [place] 01-25-2023 13:00-0400 Respiratory rate 16 /min LETHA CID MD [place] 01-25-2023 13:00-0400 Systolic Blood Pressure Non-Invasive 135 1 LETHA CID MD [place] 01-25-2023 10:30-0400 Blood Pressure Cuff Size LETHA CID MD [place] 01-25-2023 10:30-0400 Blood Pressure Location LETHA CID MD [place] 01-25-2023 10:30-0400 Blood Pressure Method LETHA CID MD [place] 01-25-2023 10:30-0400 Body height 160 cm LETHA CID MD [place] 01-25-2023 10:30-0400 Body temperature 97.88 [degF] LETHA CID MD [place] 01-25-2023 10:30-0400 Body weight 90.1 kg LETHA CID MD [place] 12-06-2022 22:41-0400 Diastolic Blood Pressure Non-Invasive 81 1 OPAL REICHFIELD DO [place] 12-06-2022 22:41-0400 Heart rate 61 /min OPAL REICHFIELD DO [place] 12-06-2022 22:41-0400 Respiratory rate 16 /min OPAL REICHFIELD DO [place] 12-06-2022 22:41-0400 Systolic Blood Pressure Non-Invasive 130 1 OPAL REICHFIELD DO [place] 12-06-2022 20:44-0400 Body temperature 98.06 [degF] OPAL REICHFIELD DO [place] 12-06-2022 20:44-0400 Diastolic Blood Pressure Non-Invasive 82 1 OPAL REICHFIELD DO [place] 12-06-2022 20:44-0400 Heart rate 77 /min OPAL REICHFIELD DO [place] 12-06-2022 20:44-0400 Respiratory rate 18 /min [facility] [place] 12-06-2022 20:44-0400 Systolic Blood Pressure Non-Invasive 128 1 [facility] [place] 11-13-2022 18:54-0500 Diastolic Blood Pressure Non-Invasive 75 1 ADINA WHITT MD [place] 11-13-2022 18:54-0500 Heart rate 85 /min ADINA WHITT MD [place] 11-13-2022 18:54-0500 Respiratory rate 18 /min ADINA WHITT MD [place] 11-13-2022 18:54-0500 Systolic Blood Pressure Non-Invasive 145 1 ADINA WHITT MD [place] 11-13-2022 16:36-0500 Diastolic Blood Pressure Non-Invasive 92 1 ADINA WHITT MD [place] 11-13-2022 16:36-0500 Heart rate 87 /min ADINA WHITT MD [place] 11-13-2022 16:36-0500 Respiratory rate 18 /min ADINA WHITT MD [place] 11-13-2022 16:36-0500 Systolic Blood Pressure Non-Invasive 126 1 ADINA WHITT MD [place] 11-13-2022 14:57-0500 Body temperature 99.32 [degF] ADINA WHITT MD [place] 11-13-2022 14:57-0500 Diastolic Blood Pressure Non-Invasive 105 1 ADINA WHITT MD [place] 11-13-2022 14:57-0500 Heart rate 128 /min ADINA WHITT MD [place] 11-13-2022 14:57-0500 Respiratory rate 18 /min ADINA WHITT MD [place] 11-13-2022 14:57-0500 Systolic Blood Pressure Non-Invasive 152 1 ADINA WHITT MD [place] 11-13-2022 00:02-0500 Diastolic Blood Pressure Non-Invasive [address] COLTON BAE MD [place] 11-13-2022 00:02-0500 Heart rate 76 /min DR COLTON BAE MD [place] 11-13-2022 00:02-0500 Respiratory rate 16 /min DR COLTON BAE MD [place] 11-13-2022 00:02-0500 Systolic Blood Pressure Non-Invasive [address] COLTON BAE MD [place] 11-12-2022 21:20-0500 Body height [address] COLTON BAE MD [place] 11-12-2022 21:20-0500 Body temperature 98.24 [degF] DR COLTON BAE MD [place] 11-12-2022 21:20-0500 Body weight [address] COLTON BAE MD [place] 11-12-2022 21:20-0500 Diastolic Blood Pressure Non-Invasive [address] COLTON BAE MD [place] 11-12-2022 21:20-0500 Heart rate 80 /min DR COLTON BAE MD [place] 11-12-2022 21:20-0500 Respiratory rate 16 /min DR COLTON BAE MD [place] 11-12-2022 21:20-0500 Systolic Blood Pressure Non-Invasive [address] COLTON BAE MD [place] 10-19-2022 20:20-0500 Diastolic Blood Pressure Non-Invasive 81 1 MOLINA DURESKA DO [facility] 10-19-2022 20:20-0500 Heart rate 70 /min MOLINA DURESKA DO [facility] 10-19-2022 20:20-0500 Reason For Taking VItal Signs MOLINA DURESKA DO [facility] 10-19-2022 20:20-0500 Respiratory rate 16 /min MOLINA DURESKA DO [facility] 10-19-2022 20:20-0500 Systolic Blood Pressure Non-Invasive 141 1 MOLINA DURESKA DO [facility] 10-19-2022 18:53-0500 Diastolic Blood Pressure Non-Invasive 84 1 MOLINA DURESKA DO [facility] 10-19-2022 18:53-0500 Heart rate 72 /min MOLINA DURESKA DO [facility] 10-19-2022 18:53-0500 Reason For Taking VItal Signs MOLINA DURESKA DO [facility] 10-19-2022 18:53-0500 Respiratory rate 18 /min MOLINA DURESKA DO [facility] 10-19-2022 18:53-0500 Systolic Blood Pressure Non-Invasive 148 1 MOLINA QUIROZ DO [facility] 10-19-2022 17:19-0500 Diastolic Blood Pressure Non-Invasive 84 1 MOLINA QUIROZ DO [facility] 10-19-2022 17:19-0500 Heart rate 70 /min MOLINA QUIROZ DO [facility] 10-19-2022 17:19-0500 Reason For Taking VItal Signs MOLINA QUIROZ DO [facility] 10-19-2022 17:19-0500 Respiratory rate 18 /min MOLINA QUIROZ DO [facility] 10-19-2022 17:19-0500 Systolic Blood Pressure Non-Invasive 147 1 MOLINA QUIROZ DO [facility] 10-19-2022 11:32-0500 Body temperature 96.98 [degF] MOLINA QUIROZ DO [facility] 10-19-2022 11:32-0500 Body weight 90.9 kg MOLINA QUIROZ DO [facility] 10-18-2022 18:36-0500 Diastolic Blood Pressure Non-Invasive 57 1 YOANA WEAVER MD [place] 10-18-2022 18:36-0500 Heart rate 70 /min YOANA WEAVER MD [place] 10-18-2022 18:36-0500 Respiratory rate 16 /min YOANA WEAVER MD [place] 10-18-2022 18:36-0500 Systolic Blood Pressure Non-Invasive 104 1 YOANA WEAVER MD [place] 10-18-2022 12:11-0500 Body height 160 cm YOANA WEAVER MD [place] 10-18-2022 12:11-0500 Body temperature 98.78 [degF] YOANA WEAVER MD [place] 10-18-2022 12:11-0500 Body weight 93.2 kg YOANA WEAVER MD [place] 10-18-2022 12:11-0500 Diastolic Blood Pressure Non-Invasive 82 1 YOANA WEAVER MD [place] 10-18-2022 12:11-0500 Heart rate 64 /min YOANA WEAVER MD [place] 10-18-2022 12:11-0500 Respiratory rate 18 /min YOANA WEAVER MD [place] 10-18-2022 12:11-0500 Systolic Blood Pressure Non-Invasive 113 1 YOANA WEAVER MD [place] 07-27-2022 15:20-0500 Diastolic blood pressure 88 mm[Hg] WAQAR BOYLE MD [facility] 07-27-2022 15:20-0500 Heart rate 74 /min WAQAR BOYLE MD [facility] 07-27-2022 15:20-0500 Reason For Taking VItal Signs WAQAR BOYLE MD [facility] 07-27-2022 15:20-0500 Respiratory rate 16 /min WAQAR BOYLE MD [facility] 07-27-2022 15:20-0500 Systolic blood pressure 131 mm[Hg] WAQAR BOYLE MD [facility] 07-27-2022 14:16-0500 Diastolic blood pressure 92 mm[Hg] WAQAR BOYLE MD [facility] 07-27-2022 14:16-0500 Systolic blood pressure 131 mm[Hg] WAQAR BOYLE MD [facility] 07-27-2022 13:22-0500 Diastolic blood pressure 50 mm[Hg] WAQAR BOYLE MD [facility] 07-27-2022 13:22-0500 Systolic blood pressure 96 mm[Hg] WAQAR BOYLE MD [facility] 07-27-2022 13:07-0500 Heart rate 77 /min WAQAR BOYLE MD [facility] 07-27-2022 13:07-0500 Respiratory rate 16 /min WAQAR BOYLE MD [facility] 07-27-2022 09:16-0500 Body temperature 97.7 [degF] WAQAR BOYLE MD [facility] 07-27-2022 09:16-0500 Body weight 95 kg WAQAR BOYLE MD [facility] 07-27-2022 09:16-0500 Heart rate 85 /min WAQAR BOYLE MD [facility] 07-27-2022 09:16-0500 Respiratory rate 20 /min WAQAR BOYLE MD [facility] 06-22-2022 09:03-0400 Reason For Taking VItal Signs JUWAN BELTRAN MD [facility] 06-22-2022 08:47-0400 Heart rate 66 /min JUWAN BELTRAN MD [facility] 06-22-2022 08:47-0400 Reason For Taking VItal Signs JUWAN BELTRAN MD [facility] 06-22-2022 06:54-0400 Body temperature 98.42 [degF] JUWAN BELTRAN MD [address] [place] [address] 06-22-2022 06:54-0400 Diastolic blood pressure 75 mm[Hg] JUWAN BELTRAN MD [address] [place] [address] 06-22-2022 06:54-0400 Heart rate 59 /min JUWAN BELTRAN MD [address] [place] [address] 06-22-2022 06:54-0400 Mean blood pressure 87 mm[Hg] JUWAN BELTRAN MD [address] [place] [address] 06-22-2022 06:54-0400 Reason For Taking VItal Signs JUWAN BELTRAN MD [address] [place] [address] 06-22-2022 06:54-0400 Respiratory rate 18 /min JUWAN BELTRAN MD [address] [place] [address] 06-22-2022 06:54-0400 Systolic blood pressure 112 mm[Hg] JUWAN BELTRAN MD [address] [place] [address] 06-22-2022 04:17-0400 Body temperature 98.42 [degF] JUWAN BELTRAN MD [address] [place] [address] 06-22-2022 04:17-0400 Diastolic blood pressure 74 mm[Hg] JUWAN BELTRAN MD [address] [place] [address] 06-22-2022 04:17-0400 Heart rate 62 /min JUWAN BELTRAN MD [address] [place] [address] 06-22-2022 04:17-0400 Systolic blood pressure 120 mm[Hg] JUWAN BELTRAN MD [address] [place] [address] 06-21-2022 23:55-0400 Body temperature 98.42 [degF] JUWAN BELTRAN MD [address] [place] [address] 06-21-2022 23:55-0400 Diastolic blood pressure 67 mm[Hg] JUWAN BELTRAN MD [address] [place] [address] 06-21-2022 23:55-0400 Heart rate 64 /min JUWAN BELTRAN MD [address] [place] [address] 06-21-2022 23:55-0400 Respiratory rate 18 /min JUWAN BELTRAN MD [address] 06-21-2022 23:55-0400 Systolic blood pressure 123 mm[Hg] JUWAN BELTRAN MD [address] 06-21-2022 19:26-0400 Mean blood pressure 83 mm[Hg] JUWAN BELTRAN MD [address] 06-21-2022 19:26-0400 Respiratory rate 18 /min JUWAN BELTRAN MD [address] 06-21-2022 16:34-0400 Heart rate 64 /min JUWAN BELTRAN MD [address] 06-21-2022 10:17-0400 Heart rate 64 /min JUWAN BELTRAN MD [address] 06-21-2022 08:17-0400 Heart rate 68 /min JUWAN BELTRAN MD [address] 06-21-2022 07:09-0400 Heart rate 65 /min JUWAN BELTRAN MD [address] [place] [address] 06-20-2022 14:21-0400 Heart rate 62 /min JUWAN BELTRAN MD [address] 06-19-2022 07:48-0400 Mean blood pressure 89 mm[Hg] JUWAN BELTRAN MD [address] [place] [address] 06-17-2022 20:28-0400 Body height 160 cm JUWAN BELTRAN MD [address] [place] [address] 06-17-2022 20:28-0400 Body weight 98 kg JUWAN BELTRAN MD [facility] 06-17-2022 20:28-0400 Body weight 38.28 kg/m2 JUWAN BELTRAN MD [facility] 06-17-2022 09:50-0400 Body weight 98 kg JUWAN BELTRAN MD [facility] 06-17-2022 07:34-0400 Diastolic blood pressure 86 mm[Hg] LAURA PAINTING MD [facility] 06-17-2022 07:34-0400 Heart rate 81 /min LAURA PAINTING MD [place] 06-17-2022 07:34-0400 Reason For Taking VItal Signs LAURA PAINTING MD [place] 06-17-2022 07:34-0400 Respiratory rate 18 /min LAURA PAINTING MD [place] 06-17-2022 07:34-0400 Systolic blood pressure 101 mm[Hg] LAURA PAINTING MD [place] 06-17-2022 07:11-0400 Diastolic blood pressure 63 mm[Hg] LAURA PAINTING MD [place] 06-17-2022 07:11-0400 Heart rate 68 /min LAURA PAINTING MD [place] 06-17-2022 07:11-0400 Reason For Taking VItal Signs LAURA PAINTING MD [place] 06-17-2022 07:11-0400 Respiratory rate 16 /min LAURA PAINTING MD [place] 06-17-2022 07:11-0400 Systolic blood pressure 101 mm[Hg] LAURA PAINTING MD [place] 06-17-2022 04:02-0400 Body temperature 98.24 [degF] LAURA PAINTING MD [facility] 06-17-2022 04:02-0400 Diastolic blood pressure 95 mm[Hg] LAURA PAINTING MD [facility] 06-17-2022 04:02-0400 Heart rate 90 /min LAURA PAINTING MD [facility] 06-17-2022 04:02-0400 Respiratory rate 18 /min LAURA PAINTING MD [facility] 06-17-2022 04:02-0400 Systolic blood pressure 131 mm[Hg] LAURA PAINTING MD [facility] 04-12-2022 11:00-0400 Body height 160 cm SHARLENE CALIXTO DO [facility] 04-12-2022 11:00-0400 Body temperature 97.7 [degF] SHARLENE CALIXTO DO [facility] 04-12-2022 11:00-0400 Body weight 91 kg SHARLENE CALIXTO DO [facility] 04-12-2022 11:00-0400 Diastolic blood pressure 93 mm[Hg] SHARLENE CALIXTO DO [facility] 04-12-2022 11:00-0400 Heart rate 91 /min SHARLENE CALIXTO DO [facility] 04-12-2022 11:00-0400 Respiratory rate 16 /min SHARLENE MARILY DO [facility] 04-12-2022 11:00-0400 Systolic blood pressure 138 mm[Hg] SHARLENE CALIXTO DO [facility] 03-10-2022 18:00-0400 Diastolic blood pressure 80 mm[Hg] ADINA WHITT MD [facility] 03-10-2022 18:00-0400 Heart rate 94 /min ADINA WHITT MD [facility] 03-10-2022 18:00-0400 Mean blood pressure 92 mm[Hg] ADINA WHITT MD [facility] 03-10-2022 18:00-0400 Systolic blood pressure 116 mm[Hg] ADINA WHITT MD [facility] 03-10-2022 15:57-0400 Body temperature 98.06 [degF] ADINA WHITT MD [facility] 03-10-2022 15:57-0400 Body weight 90.7 kg ADINA WHITT MD [facility] 03-10-2022 15:57-0400 Diastolic blood pressure 85 mm[Hg] ADINA WHITT MD [facility] 03-10-2022 15:57-0400 Heart rate 99 /min ADINA WHITT MD [facility] 03-10-2022 15:57-0400 Mean blood pressure 96 mm[Hg] ADINA WHITT MD [facility] 03-10-2022 15:57-0400 Respiratory rate 16 /min ADINA WHITT MD [facility] 03-10-2022 15:57-0400 Systolic blood pressure 119 mm[Hg] ADINA WHITT MD [facility] 02-11-2022 22:30-0400 Diastolic blood pressure 65 mm[Hg] QUOC GOMEZ MD [facility] 02-11-2022 22:30-0400 Heart rate 66 /min QUOC GOMEZ MD [place] 02-11-2022 22:30-0400 Respiratory rate 16 /min QUOC GOMEZ MD [facility] 02-11-2022 22:30-0400 Systolic blood pressure 102 mm[Hg] QUOC GOMEZ MD [place] 02-11-2022 22:15-0400 Diastolic blood pressure 66 mm[Hg] QUOC GOMEZ MD [place] 02-11-2022 22:15-0400 Heart rate 64 /min QUOC GOMEZ MD [place] 02-11-2022 22:15-0400 Mean blood pressure 77 mm[Hg] QUOC GOMEZ MD [facility] 02-11-2022 22:15-0400 Respiratory rate 20 /min QUOC GOMEZ MD [facility] 02-11-2022 22:15-0400 Systolic blood pressure 100 mm[Hg] QUOC GOMEZ MD [place] 02-11-2022 21:10-0400 Diastolic blood pressure 84 mm[Hg] QUOC GOMEZ MD [place] 02-11-2022 21:10-0400 Heart rate 75 /min QUOC GOMEZ MD [place] 02-11-2022 21:10-0400 Mean blood pressure 95 mm[Hg] QUOC GOMEZ MD [facility] 02-11-2022 21:10-0400 Respiratory rate 20 /min QUOC GOMEZ MD [facility] 02-11-2022 21:10-0400 Systolic blood pressure 116 mm[Hg] QUOC GOMEZ MD [place] 02-11-2022 18:32-0400 Body height 162.5 cm QUOC GOMEZ MD [place] 02-11-2022 18:32-0400 Body temperature 98.24 [degF] QUOC GOMEZ MD [facility] 02-11-2022 18:32-0400 Body weight 90.9 kg QUOC GOMEZ MD [place] 02-02-2022 21:54-0400 Diastolic blood pressure 78 mm[Hg] DR ALEXEY CHEEK DO [place] 02-02-2022 21:54-0400 Heart rate 61 /min DR ALEXEY CHEEK DO [facility] 02-02-2022 21:54-0400 Reason For Taking VItal Signs DR ALEXEY CHEEK DO [facility] 02-02-2022 21:54-0400 Respiratory rate 16 /min DR ALEXEY CHEEK DO [facility] 02-02-2022 21:54-0400 Systolic blood pressure 100 mm[Hg] DR ALEXEY CHEEK DO [place] 02-02-2022 18:35-0400 Body temperature 98.42 [degF] DR ALEXEY CHEEK DO [facility] 02-02-2022 18:35-0400 Body weight 114.[address] ALEXEY CHEEK DO [facility] 02-02-2022 18:35-0400 Diastolic blood pressure 58 mm[Hg] DR ALEXEY CHEEK DO [facility] 02-02-2022 18:35-0400 Heart rate 92 /min DR ALEXEY CHEEK DO [facility] 02-02-2022 18:35-0400 Respiratory rate 20 /min DR ALEXEY CHEEK DO [facility] 02-02-2022 18:35-0400 Systolic blood pressure 114 mm[Hg] DR ALEXEY RIDER DO [facility] 10-28-2021 10:24-0500 Diastolic blood pressure 72 mm[Hg] DR JIM LEIGH MD [facility] 10-28-2021 10:24-0500 Heart rate 68 /min DR JIM LEIGH MD [facility] 10-28-2021 10:24-0500 Mean blood pressure 89 mm[Hg] DR JIM LEIGH MD [facility] 10-28-2021 10:24-0500 Respiratory rate 16 /min DR JIM LEIGH MD [facility] 10-28-2021 10:24-0500 Systolic blood pressure 122 mm[Hg] DR JIM LEIGH MD [facility] 10-28-2021 08:36-0500 Body temperature 98.24 [degF] DR JIM LEIGH MD [facility] 10-28-2021 08:36-0500 Diastolic blood pressure 74 mm[Hg] DR JIM LEIGH MD [facility] 10-28-2021 08:36-0500 Heart rate 66 /min DR JIM LEIGH MD [facility] 10-28-2021 08:36-0500 Mean blood pressure 89 mm[Hg] DR JIM LEIGH MD [facility] 10-28-2021 08:36-0500 Respiratory rate 16 /min DR JIM LEIGH MD [facility] 10-28-2021 08:36-0500 Systolic blood pressure 119 mm[Hg] DR JIM LEIGH MD [facility] 09-24-2021 15:58-0500 Body temperature 97.88 [degF] ANDREEA HARPER LOCOMOTIVE INSPECTOR[employer] [facility] 09-24-2021 15:58-0500 Diastolic blood pressure 52 mm[Hg] ANDREEA HARPER LOCOMOTIVE INSPECTOR[employer]RAIL [employer]ER [facility] 09-24-2021 15:58-0500 Heart rate 64 /min ANDREEA HARPER LOCOMOTIVE INSPECTOR[employer]RAIL [employer] [place] 09-24-2021 15:58-0500 Mean blood pressure 68 mm[Hg] ANDREEA HARPER LOCOMOTIVE INSPECTOR[employer]RAIL AS[employer]ER [facility] 09-24-2021 15:58-0500 Reason For Taking VItal Signs ANDREEA HARPER LOCOMOTIVE INSPECTOR[employer]RAIL [employer] [place] 09-24-2021 15:58-0500 Respiratory rate 12 /min ANDREEA HARPER LOCOMOTIVE INSPECTOR[employer]RAIL [employer] [place] 09-24-2021 15:58-0500 Systolic blood pressure 99 mm[Hg] ANDREEA HERNANSAMANTHANATIVIDAD LOCOMOTIVE INSPECTOR[employer]RAIL [employer]ER [place] 09-24-2021 11:33-0500 Body temperature 98.6 [degF] ANDREEA BECERRASAMANTHANATIVIDAD LOCOMOTIVE INSPECTOR[employer]RAIL [employer] [place] 09-24-2021 11:33-0500 Diastolic blood pressure 50 mm[Hg] ANDREEA ROMERONATIVIDAD LOCOMOTIVE INSPECTOR[employer]RAIL [employer] [place] 09-24-2021 11:33-0500 Heart rate 70 /min ANDREEA ROMERONATIVIDAD LOCOMOTIVE INS[employer]RA[employer] [place] 09-24-2021 11:33-0500 Mean blood pressure 64 mm[Hg] ANDREEA ROMERONATIVIDAD LOCOMOTIVE INS[employer]RAIL [employer] [place] 09-24-2021 11:33-0500 Reason For Taking VItal Signs ANDREEA BECERRASAMANTHANATIVIDAD LOCOMOTIVE INS[employer]RAIL [employer] [place] 09-24-2021 11:33-0500 Respiratory rate 12 /min ANDREEA ROMERONATIVIDAD LOCOMOTIVE INSPECTOR-RAIL ASSEMBLER [place] 09-24-2021 11:33-0500 Systolic blood pressure 91 mm[Hg] ANDREEA ROMERONATIVIDAD LOCOMOTIVE INSPECTOR-RAIL ASSEMBLER [place] 09-24-2021 11:18-0500 Respiratory rate 18 /min ANDREEA HARPER LOCOMOTIVE INSPECTOR-RAIL ASSEMBLER [place] 09-24-2021 10:47-0500 Heart rate 74 /min ANDREEA ROMERONATIVIDAD LOCOMOTIVE INSPECTOR-RAIL ASSEMBLER [place] 09-24-2021 09:07-0500 Body temperature 98.24 [degF] ANDREEA ROMERONATIVIDAD LOCOMOTIVE INSPECTOR-RAIL ASSEMBLER [place] 09-24-2021 09:07-0500 Diastolic blood pressure 64 mm[Hg] ANDREEA ROMERONATIVIDAD LOCOMOTIVE INSPECTOR-RAIL ASSEMBLER [place] 09-24-2021 09:07-0500 Heart rate 78 /min ANDREEA ROMERONATIVIDAD LOCOMOTIVE INSPECTOR-RAIL ASSEMBLER [place] 09-24-2021 09:07-0500 Reason For Taking VItal Signs ANDREEA ROMERONATIVIDAD LOCOMOTIVE INSPECTOR-RAIL ASSEMBLER [place] 09-24-2021 09:07-0500 Systolic blood pressure 100 mm[Hg] ANDREEA ROMERONATIVIDAD LOCOMOTIVE INSPECTOR-RAIL ASSEMBLER [place] 09-24-2021 04:39-0500 Heart rate 81 /min ANDREEA HARPER LOCOMOTIVE INSPECTOR-RAIL ASSEMBLER [place] 09-23-2021 22:59-0500 Heart rate 73 /min ANDREEA HARPER LOCOMOTIVE INSPECTOR-RAIL ASSEMBLER [place] 09-23-2021 22:10-0500 Heart rate 72 /min ANDREEA HARPER LOCOMOTIVE INSPECTOR-RAIL ASSEMBLER [place] 09-23-2021 16:39-0500 Mean blood pressure 85 mm[Hg] ANDREEA NICKNATIVIDAD LOCOMOTIVE INSPECTOR-RAIL ASSEMBLER [place] 09-23-2021 12:28-0500 Heart rate 82 /min ANDREEA ROMERONATIVIDAD LOCOMOTIVE INSPECTOR-RAIL ASSEMBLER [place] 09-23-2021 10:34-0500 Heart rate 72 /min ANDREEA BECERRASAMANTHANATIVIDAD LOCOMOTIVE INSPECTOR-RAIL ASSEMBLER [place] 09-22-2021 22:52-0500 Body height 160 cm ANDREEA BECERRASAMANTHANATIVIDAD LOCOMOTIVE INSPECTOR-RAIL ASSEMBLER [place] 09-22-2021 22:52-0500 Body weight 92 kg ANDREEA BECERRASAMANTHANATIVIDAD LOCOMOTIVE INSPECTOR-RAIL ASSEMBLER [place] 09-22-2021 22:52-0500 Body weight 35.94 kg/m2 ANDREEA BECERRASAMANTHANATIVIDAD LOCOMOTIVE INSPECTOR-RAIL ASSEMBLER [place] 09-09-2021 14:43-0500 Diastolic blood pressure 98 mm[Hg] LAURA PAINTING MD [place] 09-09-2021 14:43-0500 Heart rate 114 /min LAURA PAINTING MD [place] 09-09-2021 14:43-0500 Respiratory rate 18 /min LAURA PAINTING MD [place] 09-09-2021 14:43-0500 Systolic blood pressure 138 mm[Hg] LAURA PAINTING MD [place] 09-09-2021 13:42-0500 Diastolic blood pressure 84 mm[Hg] LAURA PAINTING MD [place] 09-09-2021 13:42-0500 Heart rate 82 /min LAURA PAINTING MD [place] 09-09-2021 13:42-0500 Respiratory rate 18 /min LAURA PAINTING MD [place] 09-09-2021 13:42-0500 Systolic blood pressure 128 mm[Hg] LAURA PAINTING MD [place] 09-09-2021 12:16-0500 Body height 160 cm LAURA PAINTING MD [place] 09-09-2021 12:16-0500 Body temperature 98.24 [degF] LAURA PAINTING MD [place] 09-09-2021 12:16-0500 Body weight 91 kg LAURA PAINTING MD [place] 09-09-2021 12:16-0500 Diastolic blood pressure 80 mm[Hg] LAURA PAINTING MD [place] 09-09-2021 12:16-0500 Heart rate 86 /min LAURA PAINTING MD [place] 09-09-2021 12:16-0500 Respiratory rate 20 /min LAURA PAINTING MD [place] 09-09-2021 12:16-0500 Systolic blood pressure 120 mm[Hg] LAURA PAINTING MD [place] 08-06-2021 17:10-0500 Diastolic blood pressure 74 mm[Hg] DR COLTON BAE MD [place] 08-06-2021 17:10-0500 Heart rate 62 /min DR COLTON BAE MD [place] 08-06-2021 17:10-0500 Reason For Taking VItal Signs DR COLTON BAE MD [place] 08-06-2021 17:10-0500 Respiratory rate 18 /min DR COLTON BAE MD [place] 08-06-2021 17:10-0500 Systolic blood pressure 100 mm[Hg] DR COLTON BAE MD [place] 08-06-2021 14:31-0500 Body temperature 98.06 [degF] DR COLTON BAE MD [place] 08-06-2021 14:31-0500 Body weight [address] COLTON BAE MD [place] 08-06-2021 14:31-0500 Diastolic blood pressure 71 mm[Hg] DR COLTON BAE MD [place] 08-06-2021 14:31-0500 Heart rate 80 /min DR COLTON BAE MD [place] 08-06-2021 14:31-0500 Respiratory rate 18 /min DR COLTON BAE MD [place] 08-06-2021 14:31-0500 Systolic blood pressure 108 mm[Hg] DR COLTON BAE MD [place] 07-31-2021 10:28-0500 Body temperature 97.52 [degF] BINU JARRODMELT DO [place] 07-31-2021 10:28-0500 Diastolic blood pressure 79 mm[Hg] BINU FROMMELT DO [place] 07-31-2021 10:28-0500 Heart rate 75 /min BINU FROMMELT DO [place] 07-31-2021 10:28-0500 Respiratory rate 16 /min BINU FROMMELT DO [place] 07-31-2021 10:28-0500 Systolic blood pressure 127 mm[Hg] BINU FALK DO [place] 07-02-2021 13:03-0400 Diastolic blood pressure 66 mm[Hg] DR JIM LEIGH MD [place] 07-02-2021 13:03-0400 Heart rate 58 /min DR JIM LEIGH MD [place] 07-02-2021 13:03-0400 Respiratory rate 17 /min DR JIM LEIGH MD [place] 07-02-2021 13:03-0400 Systolic blood pressure 114 mm[Hg] DR JIM LEIGH MD [place] 07-02-2021 12:33-0400 Diastolic blood pressure 72 mm[Hg] DR JIM LEIGH MD [place] 07-02-2021 12:33-0400 Heart rate 56 /min DR JIM LEIGH MD [place] 07-02-2021 12:33-0400 Respiratory rate 16 /min DR JIM LEIGH MD [place] 07-02-2021 12:33-0400 Systolic blood pressure 118 mm[Hg] DR JIM LEIGH MD [place] 07-02-2021 12:01-0400 Diastolic blood pressure 78 mm[Hg] DR JIM LEIGH MD [place] 07-02-2021 12:01-0400 Heart rate 55 /min DR JIM LEIGH MD [place] 07-02-2021 12:01-0400 Respiratory rate 16 /min DR JIM LEIGH MD [place] 07-02-2021 12:01-0400 Systolic blood pressure 110 mm[Hg] DR JIM LEIGH MD [place] 07-02-2021 09:50-0400 Body height [address] JIM LEIGH MD [place] 07-02-2021 09:50-0400 Body temperature 98.24 [degF] DR JIM LEGIH MD [place] 07-02-2021 09:50-0400 Body weight [address] JIM LEIGH MD [place] 07-02-2021 09:50-0400 Heart rate 56 /min DR JIM LEIGH MD [place] Encounters Encounter Date Encounter Type Care Provider Facility Start: 06-16-2024 End: 06-16-2024 Patient encounter procedure Odilia Gunn APRN.CNP Work Phone: [facility] Comment on above: Urinary frequency (P rimary Dx); Flank pain Start: 06-11-2024 End: 06-12-2024 Telephone encounter Laury Orr KESHIA Work Phone: OB/Gynecology Comment on above: Patient Update Start: 06-08-2024 End: 06-08-2024 ambulatory LAURY ORR Facility:[facility] Start: 06-08-2024 End: 06-08-2024 Patient encounter procedure Laury Orr LOCOMOTIVE INSPECTOR.RAIL ASSEMBLER Work Phone: OB/Gynecology Comment on above: Vulvar lesion (Prima ry Dx); Vulvar mass Start: 06-06-2024 End: 06-06-2024 ambulatory [facility] Start: 06-04-2024 End: 06-04-2024 Emergency department patient visit [facility] Start: 05-31-2024 End: 05-31-2024 ambulatory LYNN MAIER Facility:[facility] Start: 05-31-2024 End: 05-31-2024 Patient encounter procedure Lynn Maier MD Work Phone: OB/Gynecology Comment on above: Vulvar skin tag (Scarlet lily Dx); Vaginal yeast infection Start: 05-30-2024 End: 05-30-2024 Emergency department patient visit [facility] Start: 05-30-2024 End: 05-30-2024 ambulatory [facility] Start: 05-28-2024 End: 05-28-2024 Emergency department patient visit [facility] Start: 05-23-2024 End: 05-23-2024 ambulatory [facility] Start: 05-15-2024 End: 05-15-2024 Emergency department patient visit [facility] Start: 05-09-2024 End: 05-09-2024 ambulatory [facility] Start: 04-27-2024 End: 04-27-2024 ambulatory [facility] Start: 04-21-2024 End: 04-21-2024 Emergency department patient visit [facility] Start: 04-12-2024 End: 04-13-2024 Emergency department patient visit [facility] Start: 04-09-2024 End: 04-09-2024 ambulatory COLTON Almaraz [facility] Start: 04-03-2024 End: 04-03-2024 Emergency department patient visit [facility] Start: 03-30-2024 End: 03-30-2024 Emergency department patient visit THANG Anjel HUNTER [facility] Start: 03-30-2024 End: 03-30-2024 ambulatory [facility] Start: 03-28-2024 End: 03-28-2024 ambulatory [facility] Start: 03-28-2024 End: 03-28-2024 ambulatory [facility] Start: 03-21-2024 ambulatory CJ RIVERA LOCOMOTIVE INSPECTOR-RAIL ASSEMBLER Facility:B Start: 03-17-2024 End: 03-24-2024 Evaluation and management of inpatient COLTON Almaraz [facility] Start: 03-16-2024 End: 03-17-2024 Evaluation and management of inpatient URBANO HALL FATOU [facility] Start: 03-14-2024 End: 03-14-2024 ambulatory [facility] Start: 03-14-2024 End: 03-14-2024 ambulatory [facility] Start: 03-11-2024 End: 03-11-2024 Emergency department patient visit [facility] Start: 03-05-2024 End: 03-06-2024 ambulatory NANCY AGRAWAL [facility] Start: 03-05-2024 End: 03-05-2024 Subsequent hospital visit by physician Baljinder [id number] Cr [id number] Holter/Ecg Resource [facility] Saw Comment on above: Arrived Start: 03-05-2024 End: 03-05-2024 Emergency department patient visit CJ RIVERA [facility] Comment on above: History of epistaxis (Primary Dx); Hematemesis, unspecified whether nausea present; Anticoagulated Start: 02-27-2024 End: 03-02-2024 Evaluation and management of inpatient Mike Land MD Work Phone: [facility] 3 Comment on above: Idiopathic chronic p ancreatitis (Multi) (Primary Dx); Pulmonary embolism on right (Multi); Single subsegmental pulmonary embolism without acute cor pulmonale (Multi); Pulmonary embolism (Multi); Swelling of extremity; Anticoagulant long-term use Start: 02-15-2024 End: 02-21-2024 Evaluation and management of inpatient [facility] Start: 02-15-2024 End: 02-19-2024 ambulatory CJ RIVERA APRN-HAMLET Facility:B Start: 02-15-2024 End: 02-19-2024 Outreach Lab CJ RIVERA APRN-HAMLET [facility] Start: 02-15-2024 End: 02-15-2024 ambulatory [facility] Start: 02-04-2024 End: 02-08-2024 Evaluation and management of inpatient [facility] Start: 02-02-2024 End: 02-02-2024 Office outpatient new 30 minutes Tianna Rasmussen MD Work Phone: [facility] Comment on above: Generalized abdomina l pain (Primary Dx); Chronic pancreatitis, unspecified pancreatitis type (Multi) Start: 02-02-2024 End: 02-02-2024 ambulatory [facility] Start: 01-18-2024 End: 01-18-2024 ambulatory CJ RIVERA APRN-HAMLET Facility:B Start: 01-18-2024 End: 01-18-2024 Patient encounter procedure CJ RIVERA APRN-HAMLET [facility] Start: 01-18-2024 End: 01-18-2024 ambulatory [facility] Start: 01-04-2024 End: 01-04-2024 ambulatory [facility] Start: 12-21-2023 End: 12-21-2023 ambulatory [facility] Start: 12-18-2023 End: 12-18-2023 ambulatory NANCY ARROYO MD Facility:[facility] Start: 12-05-2023 End: 12-08-2023 ambulatory [facility] Start: 12-05-2023 End: 12-08-2023 Evaluation and management of inpatient Nancy Agrawal MD Work Phone: [facility] [place] [address] Comment on above: Generalized abdomina l pain (Primary Dx); Pseudocyst of pancreas; Factor V deficiency (CMS/HCC); Acute embolism and thrombosis of unspecified deep veins of distal lower extremity, bilateral (CMS/HCC); Palpitations; Factor 5 Leiden mutation, heterozygous (CMS/HCC) Start: 12-05-2023 End: 12-05-2023 Subsequent hospital visit by physician Uvaldo Chavez MD Work Phone: [facility] Comment on above: Other chronic pancre atitis (CMS/HCC) Start: 12-05-2023 End: 12-05-2023 amb[facility] Start: 11-23-2023 End: 11-23-2023 ambulatory [facility] Start: 11-10-2023 End: 11-10-2023 Emergency department patient visit LYNN CHANDLER [facility] Start: 11-10-2023 End: 11-15-2023 Evaluation and management of inpatient Chi Galvin MD Work Phone: [facility] [place] [address] Comment on above: Pseudocyst of pancre as (Primary Dx); Chronic pancreatitis, unspecified pancreatitis type (CMS/HCC); Right ear impacted cerumen Start: 11-09-2023 End: 11-09-2023 Subsequent hospital visit by physician Fortunato Red[facility] Comment on above: Chronic pancreatitis , unspecified pancreatitis type (CMS/HCC) Start: 11-09-2023 End: 11-09-2023 ambulatory COLTON Almaraz [facility] Start: 11-09-2023 End: 11-09-2023 ambulatory [facility] Start: 11-04-[address] MARGIE SOTO DO Fac ility:B Start: 11-04-2023 End: 11-04-[address] MARGIE SOTO DO Facility:B Start: 11-04-2023 End: 11-04-[address] MARGIE SOTO DO [facility] Start: 10-27-2023 End: 10-27-2023 Office outpatient visit 25 minutes Tianna Rasmussen MD Work Phone: [facility] Comment on above: Chronic pancreatitis , unspecified pancreatitis type (CMS/HCC) (Primary Dx); Generalized abdominal pain Start: 10-27-2023 End: 10-27-2023 ambulatory [facility] Start: 10-18-2023 End: 10-18-[address] MARGIE SOTO DO Facility:B Start: 10-18-2023 End: 10-18-2023 Subsequent hospital visit by physician Baljinder Ir 2 [facility] Comment on above: Poor intravenous acc ess Start: 10-18-2023 End: 10-18-2023 ambulatory SHANTELL ROSSI [facility] Start: 10-17-2023 End: 10-17-2023 Emergency department patient visit ADINA WHITT MD [facility] Start: 10-12-2023 End: 10-12-2023 ambulatory [facility] Start: 10-12-2023 End: 10-12-2023 ambulatory COLTON Almaraz [facility] Start: 09-28-2023 End: 09-28-2023 ambulatory [facility] Start: 09-06-2023 End: 09-06-2023 ambulatory [facility] Start: 08-26-2023 End: 08-26-2023 Subsequent hospital visit by physician Baljinder Ir 1 [facility] Comment on above: Poor intravenous acc ess Start: 08-26-2023 End: 08-26-2023 ambulatory [facility] Start: 08-23-2023 End: 08-23-2023 ambulatory [facility] Start: 08-09-2023 End: 08-13-[address] MARGIE SOTO DO Facility:B Start: 08-09-2023 End: 08-13-[address] MARGIE SOTO DO [facility] Start: 08-03-2023 End: 08-03-2023 ambulatory CJ RIVERA [facility] Start: 08-03-2023 End: 08-03-2023 Office outpatient visit 40 minutes Colton Hicks MD Work Phone: [facility] Comment on above: Chronic pancreatitis , unspecified pancreatitis type (CMS/HCC) (Primary Dx) Start: 08-03-2023 End: 08-03-2023 ambulatory COLTON HICKS [facility] Start: 07-27-2023 End: 07-27-2023 ambulatory [facility] Start: 07-26-[address] MARGIE SOTO DO Fac ility:A Start: 07-19-2023 ambulatory [facility] Start: 07-05-2023 End: 07-05-2023 Emergency department patient visit MADELIN ALDANA [facility] Start: 07-05-2023 ambulatory [facility] Start: 06-27-2023 Refill Alaina Langenbe ck LOCOMOTIVE INSPECTOR.RAIL ASSEMBLER Work Phone: Neurology Comment on above: Refill Request Start: 06-16-2023 AUDIT Cj Hooper on Work Phone: [facility] Work Phone: Start: 06-15-2023 End: 06-18-2023 Evaluation and management of inpatient Angela Miles MD Work Phone: [facility] [place] [place] 3 Comment on above: Epigastric pain; Other chronic pancreatitis (CMS/HCC) Start: 06-14-2023 End: 06-18-2023 [facility] [address] Start: 06-03-2023 End: 06-03-2023 Emergency department patient visit YOANA WEAVER MD [facility] Start: 05-25-2023 Current tobacco non- user cad cap copd pv dm Cj Rivera Work Phone: [facility] Work Phone: Start: 05-23-2023 End: 05-23-2023 Emergency department patient visit DR ALEXEY CHEEK DO [facility] Start: 05-19-2023 End: 05-19-2023 Emergency department patient visit LETHA CID MD [facility] Start: 05-18-2023 Patient encounter procedure Colton Hicks [facility] Start: 05-12-2023 End: 05-16-2023 Evaluation and management of inpatient Adelina Og [facility] Lksd 20 Rm [id number] Start: 05-09-2023 End: 05-09-2023 Emergency department patient visit YOANA WEAVER MD [facility] Start: 05-08-2023 Refill Sarah Osorio PA-C Work Phone: Neurology Comment on above: Refill Request Start: 04-30-2023 End: 04-30-2023 [facility] Start: 04-29-2023 End: 04-30-2023 Emergency department patient visit Lisbeth Davies DO Work Phone: [facility] Comment on above: Psychosis, unspecifi ed psychosis type (HCC) (Primary Dx); Agitation Start: 04-29-2023 End: 04-29-2023 Emergency department patient visit MOLINA QUIROZ DO [facility] Start: 04-25-2023 End: 04-28-2023 Evaluation and management of inpatient Terry Torrezmarymiroslava [facility] [id number] Rm [id number] 01 Start: 04-25-2023 End: 04-25-2023 Emergency department patient visit WIN ALLRED MD [facility] Start: 04-01-2023 End: 04-03-2023 Evaluation and management of inpatient MOLINA VALLE MD [facility] Start: 03-28-2023 End: 04-01-2023 Evaluation and management of inpatient CJ RIVERA LOCOMOTIVE INSPECTOR-RAIL ASSEMBLER Facility:B Start: 03-07-2023 End: 03-11-2023 Evaluation and management of inpatient SUJATHA HERNANDEZ LOCOMOTIVE INSPECTOR-RAIL ASSEMBLER [facility] Start: 01-25-2023 Refill Alaina nicholson LOCOMOTIVE INSPECTOR.RAIL ASSEMBLER Work Phone: Neurology Comment on above: Refill Request Start: 01-25-2023 End: 01-25-2023 Emergency department patient visit LETHA CID MD [facility] Start: 01-24-2023 End: 01-24-2023 Patient encounter procedure CJ RIVERA LOCOMOTIVE INSPECTOR-RAIL ASSEMBLER [facility] Start: 12-07-2022 Refill Sin Washington A PRN.RAIL ASSEMBLER Work Phone: Neurology Comment on above: Refill Request Start: 12-06-2022 End: 12-06-2022 Emergency department patient visit OPAL REYNOLDS DO [facility] Start: 11-13-2022 End: 11-13-2022 Emergency department patient visit ADINA WHITT MD [place] Start: 11-12-2022 End: 11-13-2022 Emergency department patient visit DR COLTON BAE MD [place] Start: 11-08-2022 Refill Alaina nicholson LOCOMOTIVE INSPECTOR.RAIL ASSEMBLER Work Phone: Neurology Comment on above: Refill Request Start: 10-19-2022 End: 10-19-2022 Emergency department patient visit MOLINA QUIROZ DO [facility] Start: 10-18-2022 End: 10-18-2022 Emergency department patient visit YOANA WEAVER MD [place] Start: 10-10-2022 Refill Sin Washington A PRN.RAIL ASSEMBLER Work Phone: Neurology Comment on above: Refill Request Start: 09-07-2022 Refill Alaina nicholson LOCOMOTIVE INSPECTOR.RAIL ASSEMBLER Work Phone: Neurology Comment on above: Refill Request Start: 07-28-2022 Telephone encounter Joselyn Moon MD Work Phone: Neurology Comment on above: Other Start: 07-27-2022 End: 07-27-2022 Emergency department patient visit WAQAR BOYLE MD [facility] Start: 06-17-2022 End: 06-22-2022 Evaluation and management of inpatient JUWAN BELTRAN MD [facility] Start: 06-17-2022 End: 06-17-2022 Emergency department patient visit LAURA PAINTING MD [place] Start: 06-14-2022 Refill Sin Hayes PRN.RAIL ASSEMBLER Work Phone: Neurology Comment on above: Refill Request Start: 05-06-2022 Refill Alaina nicholson LOCOMOTIVE INSPECTOR.RAIL ASSEMBLER Work Phone: Neurology Comment on above: Refill Request Start: 04-13-2022 Refill Sarah Osorio PA-C Work Phone: Neurology Comment on above: Refill Request Start: 04-12-2022 End: 04-12-2022 Emergency department patient visit SHARLENE CALIXTO DO [place] Start: 03-10-2022 End: 03-10-2022 Emergency department patient visit ADINA WHITT MD [place] Start: 02-11-2022 End: 02-11-2022 Emergency department patient visit QUOC GOMEZ MD [place] Start: 02-02-2022 End: 02-02-2022 Emergency department patient visit DR ALEXEY CHEEK DO [place] Start: 12-28-2021 Refill Peter Cebull A PRN.RAIL ASSEMBLER Work Phone: Neurology Comment on above: Refill Request Start: 10-28-2021 End: 10-28-2021 Emergency department patient visit DR JIM LEIGH MD [place] Start: 09-22-2021 End: 09-24-2021 Evaluation and management of inpatient BAILEE BECK LOCOMOTIVE INSPECTOR-RAIL ASSEMBLER [place] Start: 09-09-2021 End: 09-09-2021 Emergency department patient visit LAURA PAINTING MD [place] Start: 08-06-2021 End: 08-06-2021 Emergency department patient visit DR COLTON BAE MD [place] Start: 07-31-2021 End: 07-31-2021 Emergency department patient visit BINU FALK DO [place] Start: 07-02-2021 End: 07-02-2021 Emergency department patient visit DR JIM LEIGH MD [place] Start: 06-30-2021 End: 06-30-2021 Patient encounter procedure CHRYSTAL GAVIRIA LOCOMOTIVE INSPECTOR-RAIL ASSEMBLER [facility] Start: 12-03-2019 End: 12-03-2019 Emergency department patient visit PARUL LAWRENCE [facility] Start: 12-02-2017 End: 12-05-2017 Evaluation and management of inpatient [facility] Facility:[facility] Start: 11-15-2017 Emergency department patient visit UNKNOWN PROVIDER [facility] Start: 10-28-[address] [facility] Start: 10-27-2017 Emergency department patient visit Emergency Physicians Sally Lindsey Facility:[facility] Start: 10-10-2017 End: 10-10-2017 Emergency department patient visit Sharla Fritz Facility:[facility] Start: 08-11-2017 End: 08-11-2017 Emergency department patient visit Sharla Fritz Facility:[facility] Start: 06-17-2017 End: 06-17-2017 Ambulatory Manish [facility] Facility:[facility] Start: 06-14-2017 End: 06-14-2017 Emergency department patient visit Manish Schulz Facility:[facility] Procedures Date Procedure Procedure Detail Performing Clinician Start: 06-16-2024 Urnls dip stick/tablet rgnt auto w/o microscopy Odilia Gunn APRN.RAIL ASSEMBLER Work Phone: Start: 03-19-2024 Esophagogastroduodenoscopy COLTON THOMPSON Start: 03-05-2024 [...] Basic metabolic panel calcium total Martha A Derik LOCOMOTIVE INSPECTOR-RAIL ASSEMBLER Work Phone: Start: 03-01-2024 Radiologic exam abdomen 1 view Chacho dotson MD Work Phone: Start: 03-01-2024 Glucose quantitative blood xcpt reagent strip Brea Nolen MD Work Phone: Start: 03-01-2024 Glucose quantitative blood xcpt reagent strip Brea Nolen MD Work Phone: Start: 03-01-2024 Glucose quantitative blood xcpt reagent strip Brea Nolen MD Work Phone: Start: 03-01-2024 Glucose quantitative blood xcpt reagent strip Brea Nloen MD Work Phone: Start: 03-01-2024 End: 03-01-2024 Basic metabolic panel calcium total Martha Hayes Robertler LOCOMOTIVE INSPECTOR-RAIL ASSEMBLER Work Phone: Start: 03-01-2024 Blood count complete automated Martha Hayes [employer] LOCOMOTIVE INSPECTOR-RAIL ASSEMBLER Work Phone: Start: 02-29-2024 End: 02-29-2024 Heparin assay Ana Wolfe MD Work Phone: Start: 02-29-2024 End: 02-29-2024 Heparin assay Ana Wolfe MD Work Phone: Start: 02-29-2024 End: 02-29-2024 Heparin assay Brea Nolen MD Work Phone: Start: 02-29-2024 Glucose quantitative blood xcpt reagent strip Brea Nolen MD Work Phone: Start: 02-29-2024 Basic metabolic panel calcium total Martha Hayes Robertler LOCOMOTIVE INSPECTOR-RAIL ASSEMBLER Work Phone: Start: 02-28-2024 Glucose quantitative blood xcpt reagent strip Brea Nolen MD Work Phone: Start: 02-28-2024 Glucose quantitative blood xcpt reagent strip Brea Nolen MD Work Phone: Start: 02-28-2024 Heparin assay Martha Hayes Derik LOCOMOTIVE INSPECTOR-RAIL ASSEMBLER Work Phone: Start: 02-28-2024 Dup-scan xtr veins [...] Ct abdomen & pelvis w/contrast material Hemalatha Desirlizzyo PA-C Work Phone: Start: 02-27-2024 Urinalysis complete W Reflex Culture panel - Urine Hemalatha Floreso PA-C Work Phone: Start: 02-27-2024 Urnls dip stick/tablet reagent auto microscopy Hemalathachidi Desirhio PA-C Work Phone: Start: 02-27-2024 Basic metabolic panel calcium total Hemalatha Araizagiovanylizzyo PA-C Work Phone: Start: 02-06-2024 Glucose [Mass/volume] [...] [facility] HICKS Start: 02-04-2024 NURSING COMMUNICATION [facility] HIC[facility] Start: 02-04-2024 ECG 12-LEAD [facility] HICKS Start: 02-04-2024 Basic metabolic 2000 panel - Serum or Plasma [facility] HICKS Start: 02-04-2024 C-reactive protein [facility] HICKS Start: 02-04-2024 CBC W Auto Differential panel - Blood [facility] HICKS Start: 02-04-2024 COAGULATION SCREEN [facility] HICKS Start: 02-04-2024 Hepatic function 2000 panel - Serum or Plasma [facility] HICKS Start: 02-04-2024 Lipase [Enzymatic activity/volume] in Serum or Plasma [facility] HICKS Start: 02-04-2024 LIPID PANEL NON-FASTING [facility] HICKS Start: 02-04-2024 Phosphate [Mass/volume] in Serum or Plasma [facility] HICKS Start: 02-04-2024 SEDIMENTATION RATE, AUTOMATED COLTON BOSCH Start: 02-04-2024 TYPE AND SCREEN [facility] H[facility] Start: 02-04-2024 Bacteria identified in Blood by Culture [facility] H[facility] Start: 02-04-2024 Hemoglobin A1c/Hemoglobin.total in Blood [facility] Start: 02-04-2024 ACTIVITY [facility] Start: 02-04-2024 ADMIT TO INPATIENT [facility] HICKS Start: 02-04-2024 INSERT PERIPHERAL IV [facility] HIC[facility] Start: 02-04-2024 MEASURE HEIGHT [facility] HIC[facility] Start: 02-04-2024 REASON FOR NO DVT PROPHYLAXIS - HOSPITAL ADMISSION - MEDICATIONS [facility] H[facility] Start: 02-04-2024 SALINE LOCK IV [facility] H[facility] Start: 02-04-2024 VITAL SIGNS [facility] HICKS Start: 02-04-2024 WEIGH PATIENT [facility] VANARO Start: 02-04-2024 Glucose [Mass/volume] in Serum or Plasma [facility] VANAR[facility] Start: 02-04-2024 Lipid 1996 panel - Serum or Plasma Mike Land MD Work Phone: Start: 01-18-2024 TREATMENT CONDITIONS 2 KUTAIBA TABBAA Start: 01-18-2024 ONCBCN INFUSION APPOINTMENT REQUEST KUTAIBA TABBAA Start: 01-04-2024 TREATMENT CONDITIONS 2 KUTAIBA TABBAA Start: 12-21-2023 TREATMENT CONDITIONS 2 KUTAIBA TABBAA Start: 12-08-2023 DISCHARGE PATIENT [facility] VANARO Start: 12-08-2023 Glucose [Mass/volume] in Serum or Plasma [facility] HARDENANZARO Start: 12-08-2023 Glucose quantitative blood xcpt reagent strip Nancy Agrawal MD Work Phone: Start: 12-08-2023 VASC US LOWER EXTREMITY VENOUS DUPLEX BILATERAL [facility] HARDENANZARO Start: 12-08-2023 Dup-scan xtr veins complete bilateral study Nancy Agrawal MD Work Phone: Start: 12-08-2023 Glucose [Mass/volume] in Serum or Plasma [facility] KURT Start: 12-08-2023 Basic metabolic 2000 panel - Serum or Plasma [facility] K[facility]T Start: 12-08-2023 CBC W Auto Differential panel - Blood [facility] HARDENANZARO Start: 12-08-2023 Hepatic function 2000 panel - Serum or Plasma [facility] KURT Start: 12-08-2023 Magnesium [Mass/volume] in Serum or Plasma [facility] HARDENANZARO Start: 12-08-2023 Phosphate [Mass/volume] in Serum or [...] Phone: Start: 12-07-2023 FOLLOW-UP EDUCATION ORDER COL[facility] VANAbigail SINGER Start: 12-07-2023 NURSING COMMUNICATION [facility] Start: 12-07-2023 Glucose [Mass/volume] in Serum or Plasma [facility] HICKS Start: 12-07-2023 INITIATE OBSERVATION STATUS [facility] ESPINOZA Start: 12-07-2023 NURSING COMMUNICATION [facility] Start: 12-07-2023 Esophagogastroduodenoscopy [facility] THOMPSON Start: 12-07-2023 Glucose quantitative blood xcpt reagent strip Nancy Agrawal MD Work Phone: Start: 12-07-2023 CBC panel - Blood by Automated count [facility] Start: 12-07-2023 STAPHYLOCOCCUS AUREUS/MRSA COLONIZATION, CULTURE [facility] Start: 12-07-2023 Esophagogastroduodenoscopy [facility] HARDENTANIA THOMPSON Start: 12-07-2023 Glucose [Mass/volume] in Serum or Plasma [facility] Start: 12-07-2023 End: 12-07-2023 Blood count complete automated Andreea boothe MD Work Phone: Start: 12-07-2023 Cul prsmptv pthgnc organism scrn w/colony estimj Andreea Gandhi MD Work Phone: Start: 12-07-2023 Basic metabolic 2000 panel - Serum or Plasma [facility] Start: 12-07-2023 CBC W Auto Differential panel - Blood [facility] Start: 12-07-2023 Hepatic function 2000 panel - Serum or Plasma [facility] Start: 12-07-2023 Magnesium [Mass/volume] in Serum or Plasma [facility] Start: 12-07-2023 Phosphate [Mass/volume] in Serum or Plasma [facility] Start: 12-07-2023 PROTIME-INR [facility] K[facility]T Start: 12-07-2023 Comprehensive metabolic panel Andreea borja MD Work Phone: Start: 12-07-2023 Heparin assay [facility] KURT Start: 12-06-2023 Heparin assay Andreea Gandhi MD Work Phone: Start: 12-06-2023 Glucose [Mass/volume] in Serum or Plasma [facility] Start: 12-06-2023 Glucose quantitative blood xcpt reagent strip Nancy Agrawal MD Work Phone: Start: 12-06-2023 ECG 12-LEAD [facility] Start: 12-06-2023 IP CONSULT TO VASCULAR MEDICINE [facility] LOPEZ Start: 12-06-2023 Glucose [Mass/volume] in Serum or Plasma [facility] Start: 12-06-2023 Ecg routine ecg w/least 12 lds trcg only w/o i&r Andreea Gandhi MD Work Phone: Start: 12-06-2023 ECG 12-LEAD [facility] Start: 12-06-2023 Glucose quantitative blood xcpt reagent strip Nancy Agrawal MD Work Phone: Start: 12-06-2023 Glucose [Mass/volume] in Serum or Plasma [facility] Start: 12-06-2023 CT ABDOMEN PELVIS W IV CONTRAST [facility] LOPEZ Start: 12-06-2023 Glucose quantitative blood xcpt reagent strip Nancy Agrawal MD Work Phone: Start: 12-06-2023 Ct abdomen & pelvis w/contrast material Johan Dru Burton MD Work Phone: Start: 12-06-2023 Basic metabolic 2000 panel - Serum or Plasma [facility] Start: 12-06-2023 CBC W Auto Differential panel - Blood [facility] Start: 12-06-2023 COAGULATION SCREEN [facility] Start: 12-06-2023 Magnesium [Mass/volume] in Serum or Plasma [facility] Start: 12-06-2023 TYPE AND SCREEN [facility] Start: 12-06-2023 Basic metabolic panel calcium total Andreea Gandhi MD Work Phone: Start: 12-06-2023 Blood typing serologic rh (d) Andreea borja MD Work Phone: Start: 12-06-2023 Heparin assay [facility] VANARO Start: 12-06-2023 Heparin assay Andreea Gandhi MD [...] HARDENANZARO Start: 12-05-2023 TYPE AND SCREEN [facility] Start: 12-05-2023 Blood typing serologic rh (d) Andreea borja MD Work Phone: Start: 12-05-2023 Comprehensive metabolic panel Andreea borja MD Work Phone: Start: 12-05-2023 Glucose [Mass/volume] in Serum or Plasma [facility] V[facility] Start: 12-05-2023 MEASURE HEIGHT [facility] HARDENANZARO Start: [...] Work Phone: Start: 11-15-2023 DISCHARGE PATIENT [facility] VANARO Start: 11-15-2023 ADULT DISCHARGE DIET [facility] Start: 11-15-2023 DISCHARGE ACTIVITY [facility] VANARO Start: 11-15-2023 NOTIFY PROVIDER (DO NOT PROMPT FOR PARAMETERS) [facility] HARDENANZARO Start: 11-15-2023 Glucose [Mass/volume] in Serum or Plasma [facility] HARDENANZARO Start: 11-15-2023 Glucose quantitative blood xcpt reagent strip Chastity León MD Work Phone: Start: 11-15-2023 Glucose [Mass/volume] in Serum or Plasma [facility] K[facility]T Start: 11-15-2023 Glucose quantitative blood xcpt reagent strip Chastity León MD Work Phone: Start: 11-15-2023 CBC panel - Blood by Automated count [facility] Start: 11-15-2023 Comprehensive metabolic 2000 panel - Serum or Plasma [facility] KURT Start: 11-15-2023 Comprehensive metabolic panel Chastity lr MD Work Phone: Start: 11-15-2023 Glucose [Mass/volume] in Serum or Plasma [facility] K[facility]T Start: 11-15-2023 Glucose quantitative blood xcpt reagent strip Chastity León MD Work Phone: Start: 11-14-2023 Glucose [Mass/volume] in Serum or Plasma [facility] HARDENANZARO Start: 11-14-2023 NURSING COMMUNICATION [facility] KURT Start: 11-14-2023 ENDOSCOPIC ULTRASOUND (UPPER) [facility] FINA BOSCH Start: 11-14-2023 Endoscopic cathj pancreatic ductal sys rs&i Brittany Ruiz MD Work Phone: Start: 11-14-2023 CBC panel - Blood by Automated count [facility] Start: 11-14-2023 Comprehensive metabolic 2000 panel - [...] Serum or Plasma [facility] Start: 11-13-2023 Magnesium [Mass/volume] in Serum or Plasma [facility] Start: 11-13-2023 RENAL FUNCTION PANEL [facility] Start: 11-13-2023 End: 11-13-2023 Renal function panel Adelina Og DO Work Phone: Start: 11-13-2023 Glucose [Mass/volume] in Serum or Plasma [facility] HICSK Start: 11-13-2023 CBC W Auto Differential panel - Blood [facility] Start: 11-13-2023 Heparin assay [facility] Start: 11-13-2023 End: 11-13-2023 Heparin assay Adelina Og DO Work Phone: Start: 11-12-2023 Heparin assay [facility] Start: 11-12-2023 Glucose [Mass/volume] in Serum or Plasma [facility] K[facility]T Start: 11-12-2023 Heparin assay Adelina Og DO [...] Serum or Plasma [facility] Start: 11-11-2023 End: 11-12-2023 Heparin assay Adelina Og DO Work Phone: Start: 11-11-2023 Glucose quantitative blood xcpt reagent strip Adelina Og DO Work Phone: Start: 11-11-2023 Glucose [Mass/volume] in Serum or Plasma [facility] Start: 11-11-2023 End: 11-11-2023 Heparin assay Adelina Og DO Work Phone: Start: 11-11-2023 aPTT in Blood by Coagulation assay FRANCY HICKS Start: 11-11-2023 CBC panel - Blood by Automated count [facility] Start: 11-11-2023 PROTIME-INR [facility] Start: 11-11-2023 Glucose [Mass/volume] in Serum or Plasma [facility] Start: 11-11-2023 End: 11-11-2023 Blood count complete automated Adelina Og DO Work Phone: Start: 11-11-2023 DRUG SCREEN,URINE [facility] Start: 11-11-2023 Glucose [Mass/volume] in Serum or Plasma [facility] Start: 11-11-2023 Drug tst prsmv instrmnt chem analyzers pr date Nancy Benedict LOCOMOTIVE INSPECTOR-RAIL ASSEMBLER Work Phone: Start: 11-11-2023 IP CONSULT TO GASTROENTEROLOGY [facility] REILLY Start: 11-11-2023 Glucose quantitative blood xcpt reagent strip Molina Guardado MD MPH Work Phone: Start: 11-11-2023 Glucose [Mass/volume] in Serum or Plasma [facility] Start: 11-11-2023 Glucose quantitative blood xcpt reagent strip Mirna Calvo MD Work Phone: Start: 11-11-2023 Glucose [Mass/volume] in Serum or Plasma [facility] HARDENANZARO Start: 11-11-2023 Glucose quantitative blood xcpt reagent strip Mirna Calvo MD Work Phone: Start: 11-11-2023 Glucose [Mass/volume] in Serum or Plasma [facility] VANARO Start: 11-11-2023 FULL CODE [facility] Start: 11-11-2023 REASON FOR NO DVT PROPHYLAXIS - HOSPITAL ADMISSION - MEDICATIONS [facility] VANARO Start: 11-11-2023 TELEMETRY MONITORING [facility] VANARO Start: 11-11-2023 ADMIT TO INPATIENT [facility] VANARO Start: 11-11-2023 ED TO FLOOR BED REQUEST [facility] VANARO Start: 11-10-2023 Glucose quantitative blood xcpt reagent strip Adelina Og DO Work Phone: Start: 11-10-2023 CT ABDOMEN PELVIS W IV CONTRAST COL[facility] Barreto ANAFREDERICKENMANUEL Start: 11-10-2023 POCT , URINE [facility] VANARO Start: 11-10-2023 BLOOD GAS LACTIC ACID, VENOUS [facility]TON BOSCH Start: 11-10-2023 ECG 12-LEAD COLTNO HARDENANZARO Start: 11-10-2023 Ct abdomen & pelvis [...] KUTAIBA TABBAA Start: 10-18-2023 DISCHARGE PATIENT [facility] HARDENANZARO Start: 10-18-2023 IR CVC CHECK [facility] HARDENANZARO Start: 10-18-2023 RF Unspecified body region Views for central venous catheter placement check Shantell Rossi LOCOMOTIVE INSPECTOR-RAIL ASSEMBLER Work Phone: Start: 10-12-2023 TREATMENT CONDITIONS 2 [...] Start: 08-26-2023 IR CVC PORT PLACEMENT [facility] HARDENANZARO Start: 12-08-2023 Guidance for placement of CV catheter with port in Chest Tianna Rasmussen MD Work Phone: Start: 08-23-2023 ONC NURSING COMMUNICATION - HYPERSENSITIVITY MANAGEMENT, MODERATE KUTAIBA TABBAA Start: 08-23-2023 PULSE OXIMETRY, CONTINUOUS KUTAIBA TABBA A Start: 08-23-2023 TREATMENT CONDITIONS 2 KUTAIBA TABBAA Start: 08-23-2023 POCT , URINE KUTAIBA TABBAA Start: 08-03-2023 CBC panel - Blood by Automated count [facility] HIC[facility] Start: 08-03-2023 Comprehensive metabolic 2000 panel - Serum or Plasma [facility]IC[facility] Start: 08-03-2023 IGG 4 [facility] Start: 08-03-2023 Lipase [Enzymatic activity/volume] in Serum or Plasma [facility] Start: 07-27-2023 TREATMENT CONDITIONS 2 KUTAIBA TABBAA Start: 07-05-2023 CT ABDOMEN PELVIS W IV CONTRAST KUTAIBA TABBAA Start: 07-05-2023 EXTRA TUBES KUTAIBA TABBAA Start: 07-05-2023 PST TOP KUTAIBA TABBAA Start: 07-05-2023 CBC W Auto Differential panel - Blood KUTAIBA TABBAA Start: 07-05-2023 Comprehensive metabolic 2000 panel - Serum or Plasma KUTAIBA TABBAA [...] count [facility]ICKS Start: 06-16-2023 Comprehensive metabolic 2000 panel - Serum or Plasma [facility] Start: 06-16-2023 C reactive protein [Mass/volume] in Serum or Plasma Chastity León MD Work Phone: Start: 06-16-2023 Complete blood count Chastity León MD Work Phone: Start: 06-16-2023 Comprehensive metabolic panel Chastity lr MD Work Phone: Start: 06-15-2023 DRUG SCREEN,URINE [facility] VANARO Start: 06-15-2023 URINALYSIS WITH REFLEX MICROSCOPIC FRANCY HICKS Start: 06-15-2023 DRUG SCREEN,URINE Chastity León MD Work Phone: Start: 06-15-2023 Urinalysis Angela Miles MD Work Phone: Start: 06-15-2023 CT ABDOMEN PELVIS W IV CONTRAST COL[facility] Barreto JOHN Start: 06-15-2023 Ct abdomen & pelvis w/contrast material Angela Miles MD Work Phone: Start: 06-14-2023 Electrocardiogram [facility] VANARO Start: 06-14-2023 SARS-COV-2 PCR [facility] HARDENANZARO Start: 06-14-2023 C-reactive protein [facility] HARDENANZARO Start: 06-14-2023 CBC W Auto Differential panel - Blood [facility] VANARO Start: 06-14-2023 Comprehensive metabolic 2000 panel - Serum or Plasma [facility] HARDENANZARO Start: 06-14-2023 Lipase [Enzymatic activity/volume] in Serum or Plasma [facility] KURT Start: 06-14-2023 ELECTROCARDIOGRAM 12 LEAD Angela amaya [...] Team Restart Line Order PeripheralIV Therapy Terry Chaconamin Start: 04-03-2023 Lipid 1996 panel - Serum or Plasma Solange Davies DO Work Phone: Start: 08-31-2020 Prescription event monitoring CHRYSTAL SANTILLAN Flazio Comment on above: Symptomatic PAC and sinus tachycardia wi th light activity Start: 08-07-2020 Cardiovascular stress testing CHRYSTAL SANTILLAN Flazio Comment on above: No evidence of ischemia or prior infarct ion. Breast attenuation artifact seen. Normal systolic function with EF 70%. No prior studies available for comparison. Start: 02-14-2020 Echocardiography CHRYSTAL GAVIRIA Flazio Comment on above: EF 60-65%, cavity size [...] is identified. Start: 01-20-2018 Echocardiography CHRYSTAL GAVIRIA Flazio Comment on above: Atrial septum: Agitated saline contrast study shows no atrial level shunt. Left ventricle: The cavity size is normal. Wall thickness is normal. systolic function is normal. The estimated EF is 60-65%. Wall motion is normal; there are no regional wall motion abnormalities. Start: 01-17-2018 Echocardiography CHRYSTAL GAVIRIA Flazio Comment on above: EF 55-60% Mitral valve is mildly calcifi ed. The leaflets are moderately thickened. Right ventricle: the cavity size is mildly increased. Right atrium is mildly dilated. Atrium septum, POOR QUALITY BUBBLE STUDY. CANT INTERPRET WITH REASONABLE CERTAINITY.NEEDS REPEATED OR RECOMMEND NADIR TO ASSESS FOR INTERATRIAL SHUNT. Abdominal hysterectomy JUAN LUIS GAVIRIA LOCOMOTIVE INSPECTOR-RAIL ASSEMBLER Appendectomy CHRYSTAL GAVIRIA LOCOMOTIVE INSPECTOR-RAIL ASSEMBLER section CHRYSTAL Spencer LOCOMOTIVE INSPECTOR-RAIL ASSEMBLER section CHRYSTAL Spencer LOCOMOTIVE INSPECTOR-RAIL ASSEMBLER Cholecystectomy CHRYSTAL GAVIRIA LOCOMOTIVE INSPECTOR-RAIL ASSEMBLER Endoscopic retrograd e cholangiopancreatography CHRYSTAL GAVIRIA LOCOMOTIVE INSPECTOR-RAIL ASSEMBLER Filter, device (physical object) CHRYSTAL GAVIRIA LOCOMOTIVE INSPECTOR-RAIL ASSEMBLER Comment on above: IVC Tonsillectomy CHRYSTAL GAVIRIA LOCOMOTIVE INSPECTOR-RAIL ASSEMBLER Plan of Treatment Date Care Activity Detail Author Start: 02-03-2029 Lipid panel Lipid Screening [facility] Start: 04-03-2028 Lipid panel Lipid Panel [facility] Start: 06-04-2027 Diabetes Screening Diabetes Screening [facility] Start: 05-30-2027 Diabetes Screening Diabetes Screening [facility] Start: 03-05-2025 Creatinine measurement Creatinine Level [facility] Start: 03-05-2025 Potassium measurement Potassium Level [facility] Start: 03-02-2025 Creatinine measurement Creatinine Level [facility] Start: 03-02-2025 Potassium measurement Potassium Level [facility] Start: 02-27-2025 Echocardiography Echocardiogram [facility] Start: 02-03-2025 Lipid panel Lipid Panel [facility] Start: 2024 Zoster Vaccines (1 of 2) Zoster Vaccines (1 of 2) [facility] Start: 12-07-2024 Creatinine measurement Creatinine Level [facility] Start: 12-07-2024 Potassium measurement Potassium Level [facility] Start: 12-05-2024 Creatinine measurement Creatinine Level [facility] Start: 12-05-2024 Potassium measurement Potassium Level [facility] Start: 12-04-2024 Creatinine measurement Creatinine Level [facility] Start: 12-04-2024 Potassium measurement Potassium Level [facility] Start: 11-15-2024 Creatinine measurement Creatinine Level [facility] Start: 11-15-2024 Potassium measurement Potassium Level [facility] Start: 11-10-2024 Creatinine measurement Creatinine Level [facility] Start: 11-10-2024 Diabetes mellitus screening Diabetes Screening [facility] Start: 11-10-2024 Potassium measurement Potassium Level [facility] Start: 08-03-2024 Creatinine measurement Creatinine Level [facility] Start: 08-03-2024 Potassium measurement Potassium Level [facility] Start: 07-05-2024 Creatinine measurement Creatinine Level [facility] Start: 07-05-2024 Potassium measurement Potassium Level [facility] Start: 06-18-2024 Diabetes mellitus screening Diabetes Screening [facility] Start: 06-16-2024 Creatinine measurement Creatinine Level [facility] Start: 06-16-2024 Potassium measurement Potassium Level [facility] Start: 05-21-2024 DIABETES SCREEN DIABETES SCREEN [facility] Start: 05-21-2024 Diabetes Screening Diabetes Screening [facility] Start: 05-20-2024 Covid-19 Vaccine ( season) Covid-19 Vaccine ( season) [facility] Start: 05-20-2024 Covid-19 Vaccine ( season) Covid-19 Vaccine ( season) [facility] Start: 05-20-2024 Influenza vaccination [facility] Start: 05-16-2024 End: 05-16-2024 Patient encounter procedure 05/16/2024 10:00 AM EDT Office Visit [facility] [address] [place] [phone] [place] [address] [address] Department [place] [address] [facility] Start: 05-06-2024 Hemoglobin A1c measurement Diabetes: Hemoglobin A1C [facility] Start: 04-25-2024 End: 04-25-2024 Patient encounter procedure 04/25/2024 8:30 AM EDT Infusion [facility] [address] [place] [phone] [facility] Start: 04-11-2024 End: 04-11-2024 Patient encounter procedure 04/11/2024 10:00 AM EDT Infusion [facility] [address] [place] [address] [facility] Start: 04-09-2024 End: 04-09-2024 Patient encounter procedure 04/09/2024 11:00 AM EDT Office Visit [facility] [address] [facility] [address] [place] [address] [place] [address] [address] Department of Medicine-Gastroenterology [place] [id number] [facility] Start: 04-05-2024 End: 04-05-2024 Patient encounter procedure 04/05/2024 3:15 PM EDT Office Visit [facility] [address] [place] [address] Paul Virgen PA-C [address] [facility] [address] [place] [address] [facility] Start: 04-04-2024 Creatinine measurement Creatinine Level [facility] Start: 04-04-2024 Potassium measurement Potassium Level [facility] Start: 04-03-2024 Lipid panel Lipid Panel [facility] Start: 03-28-2024 End: 03-28-2024 Patient encounter procedure 03/28/2024 7:30 AM EDT Infusion [facility] [address] [place] [address] [facility] Start: 03-14-2024 End: 03-14-2024 Patient encounter procedure 03/14/2024 8:00 AM EDT Infusion [facility] [address] [place] [address] [facility] Start: 03-09-2024 End: 03-09-2024 Patient encounter procedure 03/09/2024 2:20 PM EDT Office Visit [facility] [place] [address] [facility] [address] [place] [phone] [place] [address] [address] Department [place] [address] [facility] Start: 03-08-2024 End: 03-08-2024 Patient encounter procedure 03/08/2024 1:20 PM EDT Office Visit [facility] [address] [facility] [address] [place] [phone] [place] [address] [address] Department [place] [address] [facility] Start: 02-29-2024 End: 02-29-2024 Patient encounter procedure 02/29/2024 10:00 AM EDT Infusion [facility] [address] [place] [address] [facility] Start: 02-21-2024 End: 02-21-2024 Telemedicine consultation with patient 02/21/2024 2:15 PM EDT Telemedicine [facility] [address] [facility] [address] [place] [phone] [place] [address] [place] [address] [facility] Start: 02-15-2024 End: 02-15-2024 Patient encounter procedure [facility] Start: 02-08-2024 Hemoglobin A1c measurement Diabetes: Hemoglobin A1C [facility] Start: 02-08-2024 End: 02-08-2024 Patient encounter procedure 02/08/2024 11:00 AM EDT Office Visit [facility] [address] [facility] [address] [place] [address] [place] [address] [address] Department [place] [address] [facility] Start: 02-01-2024 End: 02-01-2024 Patient encounter procedure 02/01/2024 8:30 AM EDT Infusion [facility] [address] [place] [address] [facility] Start: 01-18-2024 End: 01-18-2024 Patient encounter procedure 01/18/2024 8:30 AM EDT Infusion [facility] [address] [place] [address] [facility] Start: 01-04-2024 End: 01-04-2024 Telemedicine consultation with patient 01/04/2024 1:00 PM EDT Telemedicine [facility] [address] [address] [address] [place] [address] [place] [address] [facility] Start: 01-04-2024 End: 01-04-2024 Patient encounter procedure [facility] Start: 12-21-2023 End: 12-21-2023 Patient encounter procedure 12/21/2023 8:00 AM EDT Infusion [facility] [address] [place] [address] [facility] Start: 12-07-2023 End: 12-07-2023 Patient encounter procedure 12/07/2023 7:30 AM EDT Infusion [facility] [address] [place] [address] [facility] Start: 11-23-2023 End: 11-23-2023 Patient encounter procedure 11/23/2023 8:00 AM EST Infusion [facility] [address] [place] [address] [facility] Start: 11-09-2023 End: 11-09-2023 Patient encounter procedure 11/09/2023 10:15 AM EST Appointment [facility] [address] [place] [address] [facility] Start: 11-09-2023 End: 11-09-2023 Patient encounter procedure 11/09/2023 8:30 AM EST Infusion [facility] [address] [place] [address] [facility] Start: 10-27-2023 End: 10-27-2023 Patient encounter procedure [facility] Start: 10-12-2023 End: 10-12-2023 Patient encounter procedure [facility] Start: 09-28-2023 End: 09-28-2023 Patient encounter procedure 09/28/2023 8:00 AM EST Infusion [facility] [address] [place] [address] [facility] Start: 09-06-2023 End: 09-06-2023 Patient encounter procedure 09/06/2023 1:00 PM EST Infusion [facility] [address] [place] [address] [facility] Start: 08-23-2023 End: 08-23-2023 Patient encounter procedure 08/23/2023 8:00 AM EST Infusion [facility] [address] [place] [address] [facility] Start: 08-03-2023 End: 08-03-2024 CBC panel - Blood by Automated count CBC Lab Routine Chronic pancreatitis, unspecified pancreatitis type (CMS/HCC) Expected: 08/03/2023 (Approximate), Expires: 08/03/2024 [facility] Work Phone: Comment on above: Expected: 08/03/2023 (Approximate), Expi res: 08/03/2024 Start: 08-03-2023 End: 08-03-2024 Comprehensive metabolic 2000 panel - Serum or Plasma Comprehensive Metabolic Panel Lab Routine Chronic pancreatitis, unspecified pancreatitis type (CMS/HCC) Expected: 08/03/2023 (Approximate), Expires: 08/03/2024 [facility] Work Phone: Comment on above: Expected: 08/03/2023 (Approximate), Expi res: 08/03/2024 Start: 08-03-2023 End: 08-03-2024 IgG subclass 4 [Mass/volume] in Serum IgG4 Lab Routine Chronic pancreatitis, unspecified pancreatitis type (CMS/HCC) Expected: 08/03/2023 (Approximate), Expires: 08/03/2024 [facility] Work Phone: Comment on above: Expected: 08/03/2023 (Approximate), Expi res: 08/03/2024 Start: 08-03-2023 End: 08-03-2024 Lipase [Enzymatic activity/volume] in Serum or Plasma Lipase Lab Routine Chronic pancreatitis, unspecified pancreatitis type (CMS/HCC) Expected: 08/03/2023 (Approximate), Expires: 08/03/2024 [facility] Service Area Work Phone: Comment on above: Expected: 08/03/2023 (Approximate), Expi res: 08/03/2024 Start: 07-19-2023 [id number], Provider: [facility] 01,[id number], Status: Pen, Time: 12:30 PM [id number], Provider: [facility] 01,[id number], Status: Pen, Time: 12:30 PM [facility] Work Phone: Start: 07-19-2023 Patient encounter procedure [facility] Start: 07-19-2023 End: 07-19-2023 Patient encounter procedure 07/19/2023 12:30 PM EDT Infusion [facility] [address] [place] [address] [facility] Start: 07-06-2023 NPV, Provider: Colton Hicsk, Status: Pen, Time: 9:40 AM NPV, Provider: Colton Hicks, Status: Pen, Time: 9:40 AM [facility] Work Phone: Start: 07-06-2023 Patient encounter procedure [facility] Start: 07-06-2023 End: 07-06-2023 Patient encounter procedure 07/06/2023 9:40 AM EDT Office Visit [facility] [address] [facility] [address] [place] [address] [place] [address] [facility] Department of [place] [address] [facility] Start: 07-05-2023 [id number], Provider: [facility] 02,[id number], Status: Pen, Time: 1:30 PM [id number], Provider: [facility] 02,[id number], Status: Pen, Time: 1:30 PM [facility] Work Phone: Start: 07-05-2023 Patient encounter procedure [facility] Start: 07-05-2023 End: 07-05-2023 Patient encounter procedure 07/05/2023 1:30 PM EDT Infusion [facility] [address] [place] [address] [facility] Start: 06-17-2023 End: 06-17-2024 Rivaroxaban . ; Tablet (XARELTO)DOSE = 10 mg Oral Daily Start: 17-Jun-2023 End: 16-Jun-2024 Ordered: 17-Jun-2023 Sangeeta Yu Intent [facility] Start: 06-15-2023 End: 06-15-2024 Ondansetron Injectable 4 mg IntraVenous Push Every 6 Hours PRN ; (ZOFRAN)DOSE = 4 mg IntraVenous Push Every 6 Hours, PRN Nausea and/or Vomiting Start: 15-Jun-2023 End: 14-Jun-2024 Ordered: 15-Jun-2023 Chastity León Intent [facility] Start: 06-15-2023 End: 06-15-2024 Nicotine 7 mg/ 24 hour TransDermal 1 patch Every 24 Hours ; Film, Extended Release (NICODERM)DOSE = 1 patch TransDermal Every 24 HoursNotes from Pharmacy: [facility] Start: 15-Jun-2023 End: 14-Jun-2024 Ordered: 15-Jun-2023 Nancy Benedict Intent [facility] Start: 06-15-2023 End: 06-15-2024 [facility] Start: 05-25-2023 Patient encounter procedure [facility] Start: 05-20-2023 COVID-19 Vaccine () COVID-19 Vaccine () [facility] Start: 05-20-2023 Influenza vaccination [facility] Start: 05-18-2023 Patient encounter procedure [facility] Start: 05-16-2023 End: 05-16-2024 Benzonatate 100 mg Oral Capsule 3 Times a Day ; Capsule (TESSALON PERLES)DOSE = 100 mg Oral 3 Times a Day, PRN Cough Start: 16-May-2023 End: 15-May-2024 Ordered: 16-May-2023 Adelina Thompson Intent [facility] Start: 05-15-2023 End: 05-15-2024 Sore Throat Lozenge 1 Oral Lozenge Every 2 Hours PRN ; LozengeDOSE = 1 lozenge(s) Oral Every 2 Hours, PRN Sore ThroatCa lozenge(s)/DOSE x 1 = 1 lozenge(s)/Dose (Daily Total is 12 lozenge(s)) Start: 15-May-2023 End: 14-May-2024 Ordered: 15-May-2023 Alsallamin Terry Y Intent [facility] Start: 05-14-2023 End: 05-17-2023 Iohexol (Omnipaque 350-Radiology Contrast) . ; (OMNIPAQUE)DOSE = 144 mL IntraVenous Push OnceCa.5 mL/Kg/DOSE x 96 Kg = 144 mL/Dose (Daily Total is 144 mL)LABS: Blood Urea Nitrogen, Serum,17,13-May-2023 21:14:36 Creatinine, Serum,0.75,13-May-2023 21:14:36 Start: 14-May-2023 End: 16-May-2023 Ordered: 14-May-2023 Jaret Mora Intent [facility] Start: 05-13-2023 End: 05-13-2024 Prochlorperazine 10 mg Oral Tablet Every 8 Hours PRN ; Tablet (COMPAZINE)DOSE = 10 mg Oral Every 8 Hours, PRN severe nausea or vomitingClinician Notes: Avoid if any signs of extrapyramidal or abnormal movements Start: 13-May-2023 End: 12-May-2024 Ordered: 13-May-2023 Alsallamin, Terry Y Intent Comments: Avoid if any signs of extrapyramidal or abnormal movements [facility] Comment on above: Avoid if any signs of extrapyramidal or abnormal movements Start: 05-13-2023 End: 05-12-2024 [facility] Comment on above: With food Start: 05-12-2023 End: 05-12-2024 Sodium Chloride 0.9% Injectable Flush Peripheral Line ; via Peripheral LineVolume = 10 mL IntraVenous Flush Every 8 Hours and as Needed Start: 12-May-2023 End: 11-May-2024 Ordered: 12-May-2023 Nancy Benedict Intent [facility] Start: 05-12-2023 End: 05-15-2023 Iohexol (Omnipaque 350-Radiology Contrast) . ; (OMNIPAQUE)DOSE = 144 mL IntraVenous Push OnceCa.5 mL/Kg/DOSE x 96 Kg = 144 mL/Dose (Daily Total is 144 mL)LABS: Blood Urea Nitrogen, Serum,17,12-May-2023 11:41:52 Creatinine, Serum,0.86,12-May-2023 11:41:52 Start: 12-May-2023 End: 14-May-2023 Ordered: 12-May-2023 Gurmeet Patel Intent [facility] Start: 05-04-2023 Patient encounter procedure [facility] Start: 04-27-2023 End: 04-27-2024 Nicotine Transmucosal 4 mg Oral Gum Every 4 Hours PRN ; Gum (NICORETTE)DOSE = 4 mg Oral Every 2 Hours, PRN tobacco cravingsNotes from Pharmacy: [facility] Start: 27-Apr-2023 End: 26-Apr-2024 Ordered: 27-Apr-2023 Alsallamin, Terry Y Intent [facility] Start: 04-26-2023 End: 04-26-2024 diphenhydrAMINE Injectable 25 mg IntraVenous Push Every 4 Hours PRN ; (BENADRYL)DOSE = 25 mg IntraVenous Push Every 4 Hours, PRN allergy, itching, nasea Start: 26-Apr-2023 End: 25-Apr-2024 Ordered: 26-Apr-2023 Alsallamin, Terry Y Intent [facility] Start: 04-26-2023 End: 04-26-2024 [facility] Start: 08-25-2022 BP CONTROLLED (<130/80) BP CONTROLLED (<130/80) [facility] in Start: 05-20-2022 Influenza vaccination [facility] Start: 12-21-2019 COLOGUARD (FIT-DNA) COLOGUARD (FIT-DNA) [facility] Start: 12-21-2019 Colonoscopy COLONOSCOPY [facility] Start: 12-21-2019 COLORECTAL CANCER SCREENING COLORECTAL CANCER SCREENING [facility] Start: 12-21-[address] COLONOGRAPHY [facility] Start: 12-21-2019 FECAL OCCULT BLOOD FECAL OCCULT BLOOD [facility] Start: 12-21-2019 Lipid 1996 panel - Serum or Plasma Lipid Screening [facility] Start: 12-21-2019 LIPID SCREEN LIPID SCREEN [facility] Start: 12-21-2019 Screening for malignant neoplasm of colon [facility] Start: 12-21-2019 SIGMOIDOSCOPY SIGMOIDOSCOPY [facility] Start: 2014 Mammography [facility] Start: 2014 Screening for malignant neoplasm of breast [facility] Start: 2004 HPV TESTING HPV TESTING [facility] Start: 2004 Screening for malignant neoplasm of cervix [facility] Start: 1996 DTaP/Tdap/Td Vaccines (1 - Tdap) DTaP/Tdap/Td Vaccines (1 - Tdap) [facility] Start: 12-21-1995 PAP TESTING PAP TESTING [facility] Start: 12-21-1995 Screening for malignant neoplasm of cervix [facility] Start: 1993 DTaP/Tdap/Td Vaccines (1 - Tdap) DTaP/Tdap/Td Vaccines (1 - Tdap) [facility] Start: 1993 Hepatitis A Vaccines (1 of 2 - Risk 2-dose series) Hepatitis A Vaccines (1 of 2 - Risk 2-dose series) [facility] Start: 1993 Hepatitis B Vaccine (1 of 3 - 19+ 3-dose series) Hepatitis B Vaccine (1 of 3 - 19+ 3-dose series) [facility] Start: 1993 Hepatitis B Vaccines (1 of 3 - 19+ 3-dose series) Hepatitis B Vaccines (1 of 3 - 19+ 3-dose series) [facility] Start: 1993 Urine microalbumin profile [facility] Start: 1993 Urine screening for protein Diabetes: Urine Protein Screening [facility] Start: 1992 ANNUAL PCP TEAM CHRONIC DISEASE VISIT ANNUAL PCP TEAM CHRONIC DISEASE VISIT [facility] Start: 1992 BP CONTROLLED (<130/80) BP CONTROLLED (<130/80) [facility] Start: 1992 Diabetes mellitus screening Diabetes Screening [facility] Start: 1992 HEPATITIS C SCREENING HEPATITIS C SCREENING [facility] Start: 1992 Hepatitis C screening Hepatitis C Screening [facility] Start: 1992 HIV SCREENING HIV SCREENING [facility] Start: 1992 HIV screening HIV Screening [facility] Start: 1986 Depression Screening Depression Screening [facility] Start: 1984 Diabetic foot examination Diabetes: Foot Exam [facility] Start: 1984 Glaucoma screening Diabetes: Retinopathy Screening [facility] Start: 1980 PNEUMOCOCCAL (1 - PCV) PNEUMOCOCCAL (1 - PCV) [facility] Start: 1980 Pneumococcal vaccination [facility] Start: 1980 Pneumococcal Vaccine: Pediatrics (0 to 5 Years) and At-Risk Patients (6 to 64 Years) (1 - PCV) Pneumococcal Vaccine: Pediatrics (0 to 5 Years) and At-Risk Patients (6 to 64 Years) (1 - PCV) [facility] Start: 1980 Pneumococcal Vaccine: Pediatrics (0 to 5 Years) and At-Risk Patients (6 to 64 Years) (1 of 2 - PCV) Pneumococcal Vaccine: Pediatrics (0 to 5 Years) and At-Risk Patients (6 to 64 Years) (1 of 2 - PCV) [facility] Start: 12-21-1979 COVID-19 VACCINE (1) COVID-19 VACCINE (1) [facility] Start: 12-21-1975 MMR Vaccines (1 of 1 - Standard series) MMR Vaccines (1 of 1 - Standard series) [facility] Start: 06-21-1975 COVID-19 VACCINE (#1) COVID-19 VACCINE (#1) [facility] Start: 1974 Echocardiography Echocardiogram [facility] Start: 1974 HEPATITIS B (1 of 3 - 3-dose series) HEPATITIS B (1 of 3 - 3-dose series) [facility] Start: 1974 Hepatitis B Vaccine (1 of 3 - 3-dose series) Hepatitis B Vaccine (1 of 3 - 3-dose series) [facility] Start: 1974 Hepatitis B Vaccines (1 of 3 - 3-dose series) Hepatitis B Vaccines (1 of 3 - 3-dose series) [facility] Start: 1974 HIV screening HIV Screening [facility] Start: 1974 Medicare Annual Wellness Visit Medicare Annual Wellness Visit (AWV) [facility] Start: 1974 Screening for malignant neoplasm of colon [facility] aPTT in Platelet poo r plasma by Coagulation assay aPTT - baseline Lab Timed As needed (Lab) for 1 Occurrences starting 12/05/2023 [facility] Work Phone: Comment on above: As needed (Lab) for 1 Occurrences starti ng 12/05/2023 Bacteria identified in Wound by Culture ABSCESS AND WOUND CULTURE WITH GRAM STAIN Microbiology Routine Vulvar lesion 06/08/2024 3:03 PM EDT [facility] Work Phone: End: 06-18-2023 C reactive protein [Mass/volume] in Serum or Plasma C-Reactive Protein Lab Routine Once (Lab) for 1 Occurrences starting 06/18/2023 until 06/18/2023 [facility] Service Area Work Phone: Comment on above: Once (Lab) for 1 Occurrences starting until 06/18/2023 End: 06-18-2023 CBC panel - Blood by Automated count CBC Lab Routine Morning draw (Lab) for 1 Occurrences starting 06/18/2023 until 06/18/2023 [facility] Work Phone: Comment on above: Morning draw (Lab) for 1 Occurrences sta rting 06/18/2023 until 06/18/2023 CBC panel - Blood by Automated count CBC Lab Timed As needed (Lab) for 1 Occurrences starting 12/05/2023 [facility] Work Phone: Comment on above: As needed (Lab) for 1 Occurrences starti ng 12/05/2023 End: 12-11-2023 CBC panel - Blood by Automated count CBC Lab Routine Every other day (Lab) for 3 Occurrences starting 12/07/2023 until 12/11/2023, 1 completed [facility] Work Phone: Comment on above: Every other day (Lab) for 3 Occurrences starting 12/07/2023 until 12/11/2023, 1 completed End: 03-05-2024 CBC panel - Blood by Automated count CBC Lab Routine Every other day (Lab) for 3 Occurrences starting 03/01/2024 until 03/05/2024, 1 completed [facility] Service Area Work Phone: Comment on above: Every other day (Lab) for 3 Occurrences starting 03/01/2024 until 03/05/2024, 1 completed End: 06-18-2023 Choriogonadotropin ( test) [Presence] in Urine hCG, Urine, Qualitative Lab Routine Once (Lab) for 1 Occurrences starting 06/18/2023 until 06/18/2023 [facility] Work Phone: Comment on above: Once (Lab) for 1 Occurrences starting until 06/18/2023 End: 06-18-2023 Comprehensive metabolic 2000 panel - Serum or Plasma Comprehensive metabolic panel Lab Routine Morning draw (Lab) for 1 Occurrences starting 06/18/2023 until 06/18/2023 [facility] Work Phone: Comment on above: Morning draw (Lab) for 1 Occurrences sta rting 06/18/2023 until 06/18/2023 End: 11-14-2023 Continuous Pulse oximetry, In Phase 1 [facility] Work Phone: Comment on above: Continuous until discontinued starting 0 11/14/2023 End: 12-07-2023 Continuous Pulse oximetry, In Phase 1 [facility] Work Phone: Comment on above: Continuous until discontinued starting 0 12/07/2023 End: 12-06-2023 ECG 12 lead [facility] Work Phone: Comment on above: Once for 1 Occurrences starting 12/06/19 until 12/06/2023 End: 03-05-2024 ECG 12 Lead ECG 12 Lead ECG STAT Once for 1 Occurrences starting 03/05/2024 until 03/05/2024 [facility] Work Phone: Comment on above: Once for 1 Occurrences starting 03/05/20 until 03/05/2024 End: 12-05-2023 EGD w Fluoro [facility] Work Phone: Comment on above: Once for 1 Occurrences starting 12/05/19 until 12/05/2023 Once as needed for 1 Occurrences starting 12/05/2023 EGD w Fluoro EGD w Fluoro End oscopy Routine Pseudocyst of pancreas 12/07/2023 10:22 AM EDT [facility] Work Phone: Electrocardiogram, 1 2-lead PRN ACS symptoms Electrocardiogram, 12-lead PRN ACS symptoms ECG Routine As needed until discontinued starting 06/18/2023 [facility] Work Phone: Comment on above: As needed until discontinued starting Electrocardiogram, 1 2-lead PRN ACS symptoms Electrocardiogram, 12-lead PRN ACS symptoms ECG Routine As needed until discontinued starting 11/10/2023 [facility] Work Phone: Comment on above: As needed until discontinued starting Electrocardiogram, 1 2-lead PRN ACS symptoms Electrocardiogram, 12-lead PRN ACS symptoms ECG Routine As needed until discontinued starting 12/05/2023, 1 completed [facility] Work Phone: Comment on above: As needed until discontinued starting , 1 completed Electrocardiogram, 1 2-lead PRN ACS symptoms Electrocardiogram, 12-lead PRN ACS symptoms ECG Routine As needed until discontinued starting 02/28/2024 [facility] Work Phone: Comment on above: As needed until discontinued starting End: 02-27-2024 Extra Urine Vaca Tube Extra Urine Vaca Tube Lab Timed Once for 1 Occurrences starting 02/27/2024 until 02/27/2024 [facility] Work Phone: Comment on above: Once for 1 Occurrences starting 02/27/20 24 until 02/27/2024 Glucose [Mass/volume ] in Serum or Plasma POCT Glucose Point of Care Testing - Docked Device Routine As needed (Lab) until discontinued starting 11/10/2023 [facility] Work Phone: Comment on above: As needed (Lab) until discontinued start ing 11/10/2023 Glucose [Mass/volume ] in Serum or Plasma POCT Glucose Point of Care Testing - Docked Device Routine As needed (Lab) for 1 Occurrences starting 11/14/2023 [facility] Work Phone: Comment on above: As needed (Lab) for 1 Occurrences starti ng 11/14/2023 End: 03-01-2024 Glucose [Mass/volume] in Serum or Plasma [facility] Work Phone: Comment on above: 4 times daily before meals and at bedtim e for 3 Days starting 02/28/2024 until 03/01/2024 4 times daily before meals and at bedtime for 3 Days starting 02/28/2024 until 03/01/2024, 11 completed Glucose [Mass/volume ] in Serum or Plasma POCT Glucose Point of Care Testing - Docked Device Routine As needed (Lab) until discontinued starting 02/28/2024 [facility] Work Phone: Comment on above: As needed (Lab) until discontinued start ing 02/28/2024 Heparin unfractionat ed [Units/volume] in Platelet poor plasma by Chromogenic method [facility] Work Phone: Comment on above: As needed (Lab) for 30 Occurrences start ing 12/05/2023 As needed (Lab) for 30 Occurrences starting 12/05/2023, 1 completed End: 03-03-2024 Heparin unfractionated [Units/volume] in Platelet poor plasma by Chromogenic method Heparin Assay Lab Routine Once (Lab) for 1 Occurrences starting 03/03/2024 until 03/03/2024 [facility] Work Phone: Comment on above: Once (Lab) for 1 Occurrences starting until 03/03/2024 Prothrombin time (PT) Protime-IN R Lab Timed As needed (Lab) for 1 Occurrences starting 12/05/2023 [facility] Work Phone: Comment on above: As needed (Lab) for 1 Occurrences starti ng 12/05/2023 End: 03-05-2024 Prothrombin time (PT) Protime-INR Lab Routine Morning draw (Lab) for 5 Occurrences starting 03/01/2024 until 03/05/2024, 2 completed [facility] Work Phone: Comment on above: Morning draw (Lab) for 5 Occurrences sta rting 03/01/2024 until 03/05/2024, 2 completed End: 10-18-2023 RF Unspecified body region Views for central venous catheter placement check [facility] Work Phone: Comment on above: Once for 1 Occurrences starting 10/18/19 24 until 10/18/2023 SURGICAL PATHOLOGY SURGICAL PATH OLOGY Lab Routine Vulvar skin tag 05/31/2024 3:32 PM EDT [facility] Work Phone: End: 02-27-2024 Urinalysis complete W Reflex Culture panel - Urine [facility] Work Phone: Comment on above: Once (Lab) for 1 Occurrences starting until 02/27/2024 [facility] Payers Date Payer Category Payer Medicaid MEDICAID MEDICAI D 2023-Present [address] [place] [address] [id number] 2023 Medicaid [id number] 2023 Medicare [id number] 2020 Medicare 2020 Medicare HUMANA MEDICARE HUMANA GOLD PLUS [id number] 2020-Present [phone] [address] [address] [place] [address] O [id number] [id number] 2020 Medicare [id number] 2017 Unknown [id number] 2017 Self-pay 2017 Unknown 1974 Unknown [id number] 2.16840.1.634232.3.579.2. 1974 Unknown [id number] 2.16840.1.932930.3.579.2 1974 Unknown [id number] 2.840.1.361253.3.579.2 1974 Unknown [id number] 2.16840.1.559637.3.579.2 1974 Unknown [id number] 2.16840.1.066117.3.579.2 1974 Unknown [id number] 2.16840.1.416735.3.579.2. 1974 Unknown [id number] 2.16840.1.316003.3.579.2 1974 Unknown [id number] 2.16840.1.761057.3.579.2 1974 Unknown [id number] 2.16840.1.708723.3.579.2. 1974 Unknown [id number] 2.16840.1.272709.3.579.2 1974 Unknown [id number] 2.16840.1.611762.3.579.2 1974 Unknown [id number] 2.16.840.1.046848.3.579.2.627 1974 Unknown [id number] 2.16.840.1.613523.3.579.2. 1974 Unknown [id number] 2.16.840.1.408255.3.579.2.627 1974 Unknown [id number] 2.16.840.1.820548.3.579.2. 1974 Unknown [id number] 2.16.840.1.830574.3.579.2. 1974 Unknown [id number] 2.16.840.1.841548.3.579.2. 1974 Unknown [id number] 2.16840.1.969148.3.579.2. 1974 Unknown [id number] 2.16840.1.935843.3.579.2.651 1974 Unknown [id number] 2.16840.1.929739.3.579.2.159 1974 Unknown [id number] 2.16.840.1.891953.3.579.2.4 1974 Unknown [id number] 2.16.840.1.590715.3.579.2.1244 1974 Unknown [id number] 2.16.840.1.875107.3.579.2.1244 1974 Unknown [id number] 2.16.840.1.376361.3.579.2.1244 1974 Unknown [id number] 2.16.840.1.120344.3.579.2.1244 1974 Unknown [id number] 2.16.840.1.684475.3.579.2.1244 1974 Unknown [id number] 2.16.840.1.170874.3.579.2.1244 1974 Unknown [id number] 2.16.840.1.645897.3.579.2.1244 1974 Unknown [id number] 2.16.840.1.171592.3.579.2.1244 1974 Unknown [id number] 2.16.840.1.342233.3.579.2.1244 1974 Unknown [id number] 2.16.840.1.728502.3.579.2.1244 1974 Unknown [id number] 2.16.840.1.765885.3.579.2.1244 1974 Unknown [id number] 2.16.840.1.958985.3.579.2.1244 1974 Unknown [id number] 2.16840.1.964368.3.579.2.1244 1974 Unknown [id number] 2.16840.1.931378.3.579.2.1244 1974 Unknown [id number] 2.16.840.1.653453.3.579.2.356 1974 Unknown [id number] 2.16840.1.303218.3.579.2.1246 1974 Unknown [id number] 2.16840.1.440540.3.579.2.1246 1974 Unknown [id number] 2.16.840.1.603261.3.579.2.1246 1974 Unknown [id number] 2.16.840.1.519772.3.579.2.1246 1974 Unknown [id number] 2.16.840.1.133579.3.579.2.1246 1974 Unknown [id number] 2.16.840.1.617711.3.579.2.1246 1974 Unknown [id number] 2.16.840.1.154683.3.579.2.1246 1974 Unknown [id number] 2.16.840.1.038847.3.579.2.1246 1974 Unknown [id number] 2.16.840.1.088549.3.579.2.1246 1974 Unknown [id number] 2.16.840.1.812674.3.579.2.1246 1974 Unknown [id number] 2.16.840.1.326765.3.579.2.1246 1974 Unknown [id number] 2.16.840.1.161188.3.579.2.1246 1974 Unknown [id number] 2.16.840.1.682121.3.579.2.1246 1974 Unknown [id number] 2.16840.1.973744.3.579.2.1246 1974 Unknown [id number] 2.16840.1.262191.3.579.2.1246 1974 Unknown [id number] 2.16.840.1.207097.3.579.2.1246 1974 Unknown [id number] 2.16.840.1.189178.3.579.2.1246 1974 Unknown [id number] 2.16.840.1.652810.3.579.2.1246 1974 Unknown [id number] 2.16.840.1.790051.3.579.2.1246 1974 Unknown [id number] 2.16.840.1.885041.3.579.2.1246 1974 Unknown [id number] 2.16.840.1.753002.3.579.2.1246 1974 Unknown [id number] 2.16.840.1.602818.3.579.2.1246 1974 Unknown [id number] 2.16.840.1.630365.3.579.2.1246 1974 Unknown [id number] 2.16.840.1.183118.3.579.2.1246 1974 Unknown [id number] 2.16.840.1.692164.3.579.2.1246 1974 Unknown [id number] 1975 Unknown [id number] 1974 Unknown [id number] [id number] 1974 Unknown [id number] 2.16.840.1.625622.3.579.2.1242 1974 Unknown [id number] 2.16.840.1.243544.3.579.2.1242 1974 Unknown [id number] 2.16.840.1.352832.3.579.2.1242 1974 Unknown [id number] 2.16.840.1.387264.3.579.2.1242 1974 Unknown [id number] 2.16.840.1.103743.3.579.2.1242 1974 Unknown [id number] 2.16.840.1.090030.3.579.2.1242 1974 Unknown [id number] 2.16.840.1.597304.3.579.2.1242 1974 Unknown [id number] 2.16.840.1.676415.3.579.2.1242 1974 Unknown [id number] 2.16.840.1.271732.3.579.2.1242 1974 Unknown [id number] 2.16.840.1.389921.3.579.2.1242 1974 Unknown [id number] [id number] 1974 Unknown [id number] Medicaid [id number] Medicare [id number] Social History Date Type Detail Facility Tobacco Tobacco Use: use a vape pen uses it daily. Type: Electronic Cigarettes. [place] Smokes tobacco d aily (finding) [place] Sex Assigned At Female [facility] Start: 11-21-2019 End: 05-31-2024 Tobacco smoking status NHIS Ex-smoker [facility] Start: 11-21-2019 End: 05-31-2024 Tobacco use and exposure Smokeless tobacco non-user [facility] Start: 08-25-2021 End: 06-16-2024 Alcohol intake Not Asked [facility] Start: 11-27-2019 History SDOH Financial 5 [facility] Start: 11-27-2019 History SDOH Food Worry 1 [facility] Start: 11-27-2019 History SDOH Transport Med 2 [facility] Start: 1975 Sex Assigned At Not on file [facility] History of tobacco use Current smoker [facility] Tobacco smoking consumption unknown [facility] History of tobacco use Cigarette Smoker [facility] Start: 09-07-2022 Alcohol intake Current non-drinker of alcohol (finding) [facility] Start: 09-07-2022 End: 07-08-2023 History of Social function [facility] Work Phone: Start: 09-07-2022 End: 07-08-2023 Tobacco use panel [facility] Work Phone: How hard is it for y ou to pay for the very basics like food, housing, medical care, and heating Not hard at all [facility] Work Phone: (I/We) worried whesara er (my/our) food would run out before (I/we) got money to buy more. Never true [facility] Work Phone: Start: 03-17-2021 Gender identity Identifies as female gender (finding) [facility] Start: 03-17-2021 Sexual orientation Heterosexual (finding) [facility] Start: 07-05-2023 End: 11-23-2023 Tobacco smoking status NHIS Never smoked tobacco [facility] Start: 07-27-2023 End: 02-27-2024 Alcohol intake Ex-drinker (finding) [facility] Work Phone: Start: 07-24-2023 End: 03-05-2024 Exposure to SARS-CoV-2 (event) Not sure [facility] How often to you hav e a drink containing alcohol? Never [facility] Work Phone: Start: 10-27-2023 End: 11-23-2023 Tobacco use and exposure User of smokeless tobacco [facility] Work Phone: How hard is it for y ou to pay for the very basics like food, housing, medical care, and heating Not very hard [facility] Work Phone: In the past 12 month s, was there a time when you were not able to pay the mortgage or rent on time? No [facility] Work Phone: Start: 11-23-2023 Tobacco Comment vapes [facility] Work Phone: Start: 01-23-2024 End: 02-02-2024 Exposure to SARS-CoV-2 (event) Unable to assess [facility] Medical Equipment Procedure Code Equipment Code Equipment Origin al Text Equipment Identifier Dates See Instructions , Brand as covered Diagnosis E11.9 Patient is not insulin independent Check blood sugars daily, # 100 EA, 0 Refill(s), Pharmacy: [facility], 160, cm, 09/14/23 9:08:00 EST, Height, 214, kg, 09/14/23 9:08:00 EST, Dosing Weight Start: 09-29-2023 See Instructions , Brand as covered Diagnosis E11.9 Patient is not insulin independent Check blood sugars daily, # 100 EA, 0 Refill(s), Pharmacy: [facility] #[facility], 160, cm, 09/14/23 9:08:00 EST, Height, 214, kg, 09/14/23 9:08:00 EST, Dosing Weight Start: 09-29-2023 Kit, Power Port, Chris, Isp Implantable With 8fr Cath - [id number] Start: 10-18-2023 See Instructions , Brand as covered Diagnosis E11.9 Patient is not insulin independent Check blood sugars daily, # 100 EA, 0 Refill(s), Pharmacy: [facility] #[facility], 160, cm, 09/14/23 9:08:00 EST, Height, 214, kg, 09/14/23 9:08:00 EST, Dosing Weight Start: 09-29-2023 See Instructions , Brand as covered Diagnosis E11.9 Patient is not insulin independent Check blood sugars daily, # 100 EA, 0 Refill(s), Pharmacy: [facility], 160, cm, 09/14/23 9:08:00 EST, Height, 214, kg, 09/14/23 9:08:00 EST, Dosing Weight Start: 09-29-2023 See Instructions , BD UF 8mm 31 G (short) Use 4 pen needles daily to inject insulin qs 1 month supply, # 1 EA, 11 Refill(s), Pharmacy: [facility], 160, cm, 10/17/23 15:51:00 EST, Height, 104.5, kg, 10/17/23 15:51:00 EST, Dosing Weight Start: 10-26-2023 Stent, Axios, W/ Electrocautery, 20mm X 10mm, Enhanced - [id number] Start: 11-14-2023 Stent Set, Zimmo n Biliary, 7fr 4cm - [id number] Start: 11-14-2023 See Instructions , Brand as covered Diagnosis E11.9 Check blood sugars daily, # 100 EA, 0 Refill(s), Pharmacy: [facility] #[facility], 160, cm, 01/02/24 14:52:00 EDT, Height, 109.1, kg, 01/02/24 14:52:00 EDT, Dosing Weight Start: 01-02-2024 See Instructions , Brand as covered Diagnosis E11.9 Patient is not insulin independent Check blood sugars daily, # 100 EA, 0 Refill(s), Pharmacy: [facility], 160, cm, 01/02/24 14:52:00 EDT, Height, 109.1, kg, 01/02/24 14:52:00 EDT, Dosing Weight Start: 01-02-2024 See Instructions , BD UF 8mm 31 G (short) Use 4 pen needles daily to inject insulin qs 1 month supply, # 1 EA, 11 Refill(s), Pharmacy: [facility], 160, cm, 10/17/23 15:51:00 EST, Height, 104.5, kg, 10/17/23 15:51:00 EST, Dosing Weight Start: 10-26-2023 See Instructions , 1 bottle of 100 Test 4 times daily, # 1 EA, 11 Refill(s), Pharmacy: [facility] #[facility], 163, cm, 02/15/24 10:25:00 EDT, Height, 107, kg, 02/15/24 10:25:00 EDT, Dosing Weight Start: 02-15-2024 See Instructions , Brand as covered Diagnosis E11.9 Patient is insulin dependent Check blood sugars 4 times daily, # 100 EA, 3 Refill(s), Pharmacy: [facility], 163, cm, 02/15/24 10:25:00 EDT, Height, 107, kg, 02/15/24 10:25:00 EDT, Dosing Weight Start: 02-15-2024 See Instructions , BD UF 8mm 31 G (short) Use 4 pen needles daily to inject insulin qs 1 month supply, # 1 EA, 11 Refill(s), Pharmacy: [facility] #[facility], 160, cm, 10/17/23 15:51:00 EST, Height, 104.5, kg, 10/17/23 15:51:00 EST, Dosing Weight Start: 10-26-2023 True Metrix Gluc ose Test Strip, Check blood sugars daily] Start: 02-15-2024 Functional Status Date Assessment Result Facility 10-17-2023 Functional Status Assistive Device None A [facility] 10-17-2023 Functional Status Standard Safet y ID band on, Allergy Band on, Call device within reach, Bed in low position, Wheels locked, Upper/Half-Length side-rails up, Phone within reach, personal items within reach [place] 06-03-2023 Functional Status ID band on, Allergy Band on, Call device within reach, Bed in low position, Wheels locked, Visitor at bedside [place] 06-03-2023 Functional Status Sean Singh [facility] 05-23-2023 Functional Status Independent [facility] 05-23-2023 Functional Status Standard Safet y ID band on, Allergy Band on, Call device within reach, Bed in low position, Wheels locked, Upper/Half-Length side-rails up, Phone within reach, personal items within reach, Bedside Cart Locked, Visitor at bedside [place] 05-19-2023 Functional Status Activity Jayda tance Independent [place] 05-19-2023 Functional Status Repositions [facility] 05-09-2023 Functional Status ID band on, Allergy Band on, Call device within reach, Bed in low position, Wheels locked, Upper/Half-Length side-rails up, Phone within reach [place] 05-09-2023 Functional Status Sean [facility] 04-29-2023 Functional Status Identified as high risk, Door open, Histology Tech at bedside [place] 04-29-2023 Functional Status Sean [facility] 04-29-2023 Functional Status Ambulation Amb ulation in Fitch 1 [place] 04-29-2023 Functional Status Positioning Repositions [facility] 04-29-2023 Functional Status Sean [facility] 04-29-2023 Functional Status [facility] 04-25-2023 Functional Status Up ad cony Sean [facility] 04-25-2023 Functional Status Sean [facility] 04-25-2023 Functional Status Environmental Safety Implemented Adequate room lighting, Bed in low position, Call device within reach, Non-Slip footwear, Personal items within reach, Traffic path in room free of clutter, Wheels locked [place] 04-25-2023 Functional Status Sean [facility] 04-25-2023 Functional Status Sean [facility] 04-03-2023 Functional Status Room check performed [facility] 04-02-2023 Functional Status Sean Singh [facility] 04-02-2023 Functional Status Sean Singh [facility] 04-02-2023 Functional Status Sean Singh [facility] 04-02-2023 Functional Status 100 [facility] 04-01-2023 Functional Status Sensory Deficits None A [facility] 03-11-2023 Functional Status Room check performed [facility] 03-11-2023 Functional Status Sean Singh [facility] 03-11-2023 Functional Status Breakfast Percent 50 [facility] 03-11-2023 Functional Status Sean Singh [facility] 03-11-2023 Functional Status Demonstrates C orrect Call Light Use Yes [place] 03-11-2023 Functional Status Sean Singh [facility] 03-10-2023 Functional Status Sean [facility] 03-09-2023 Functional Status Sean Singh [facility] 03-09-2023 Functional Status Lunch Percent 100 [facility] 03-08-2023 Functional Status Home managemen t, Housework, Laundry, Meal preparation, Personal ADL [place] 03-07-2023 Functional Status None Sean [facility] 01-25-2023 Functional Status Up ad cony [facility] 12-06-2022 Functional Status Assistive Device None A [facility] 11-13-2022 Functional Status Independent Sean [facility] 11-13-2022 Functional Status Standard Safet y ID band on, Allergy Band on, Call device within reach, Bed in low position, Wheels locked, Upper/Half-Length side-rails up, Phone within reach, personal items within reach, Assistive devices within reach, Toileting device within reach, Bedside Cart Locked, Visitor at bedside, Safety level maintained [place] 11-13-2022 Functional Status Ambulating in fitch, Ambulating in room, Awake [place] 11-12-2022 Functional Status Standard Safet y ID band on, Allergy Band on, Call device within reach, Bed in low position, Wheels locked, Upper/Half-Length side-rails up, personal items within reach [place] 10-19-2022 Functional Status Awake, Repositions self [facility] 10-19-2022 Functional Status Ambulation in Fitch [facility] 10-19-2022 Functional Status [facility] 10-18-2022 Functional Status Independent [facility] 10-18-2022 Functional Status Standard Safet y ID band on, Allergy Band on, Call device within reach, Bed in low position, Wheels locked [place] 07-27-2022 Functional Status ID band on, Call device within reach, Bed in low position, Wheels locked, Upper/Half-Length side-rails up [facility] 07-27-2022 Functional Status Awake, Repositions [facility] 06-22-2022 Functional Status Yes [facility] 06-22-2022 Functional Status Room check performed [facility] 06-22-2022 Functional Status [facility] 06-22-2022 Functional Status [facility] 06-21-2022 Functional Status [facility] 06-21-2022 Functional Status [facility] 06-21-2022 Functional Status Done [facility] 06-20-2022 Functional Status bilateral knee high [facility] 06-20-2022 Functional Status NPO Status Initiated [facility] 06-19-2022 Functional Status Lunch Percent 50 [facility] 06-19-2022 Functional Status Breakfast Percent 25 [facility] 06-19-2022 Functional Status Activity Jayda tance Independent [facility] 06-19-2022 Functional Status SCD On/Re-appl ied bilateral knee high [facility] 06-19-2022 Functional Status Hospital bed [facility] 06-19-2022 Functional Status [facility] 06-18-2022 Functional Status [facility] 06-18-2022 [facility] Functional Status Living Situati on Lives with significant other [facility] 06-17-2022 Functional Status Assistive Device None A [facility] 06-17-2022 Functional Status Standard Safet y ID band on, Call device within reach, Bed in low position [place] 04-12-2022 Functional Status Up ad cony [facility] 03-10-2022 Functional Status Independent [facility] 03-10-2022 Functional Status Standard Safet y ID band on, Allergy Band on, Call device within reach, Bed in low position, Wheels locked, Upper/Half-Length side-rails up, Phone within reach, personal items within reach [place] 02-11-2022 Functional Status Room check performed [facility] 02-11-2022 Functional Status [facility] 02-02-2022 Functional Status [facility] 02-02-2022 Functional Status [facility] Functional observable [facility] Mental Status Date Assessment Result Facility 10-17-2023 Mental Status Orientation Oriented x 4 [facility] 10-17-2023 Mental Status [facility] 06-16-2023 Cognitive functi ons [id number] [facility] 06-03-2023 Mental Status Orientation Oriented x 4 [facility] 06-03-2023 Mental Status [facility] 05-23-2023 Mental Status Orientation Oriented x 4 [facility] 05-23-2023 Mental Status [facility] 05-19-2023 Mental Status Orientation Oriented x 4 [facility] 05-19-2023 Mental Status [facility] 05-16-2023 Cognitive functi ons [id number] [facility] 05-09-2023 Mental Status Orientation Oriented x 4 [facility] 05-09-2023 Mental Status [facility] 04-29-2023 Mental Status Orientation Does not intera ct [place] 04-26-2023 Cognitive functi ons :01 [facility] 04-25-2023 Mental Status Oriented x 4 [facility] 04-25-2023 Mental Status [facility] 04-02-2023 Mental Status Oriented x 4, Follows simple commands [facility] 04-02-2023 [facility]-01[facility] Status [facility] 03-11-2023 Mental Status Oriented x 4 [facility] 03-11-2023 Mental Status [facility] 03-10-2023 Mental Status [facility] 01-25-2023 Mental Status Orientation Oriented x 4 [facility] 01-25-2023 Mental Status [facility] 12-06-2022 Mental Status Orientation Oriented x 4 [facility] 11-13-2022 Mental Status Orientation Oriented x 4 [facility] 11-13-2022 Mental Status [facility] 11-13-2022 Mental Status Orientation Oriented x 4 [facility] 11-12-2022 Mental Status [facility] 10-19-2022 Mental Status Oriented x 4 [facility] 10-19-2022 Mental Status [facility] 10-18-2022 Mental Status Orientation Oriented x 4 [facility] 10-18-2022 Mental Status [facility] 07-27-2022 Mental Status Orientation Oriented x 4 [facility] 07-27-2022 Mental Status [facility] 06-22-2022 Mental Status Orientation Orie nted x 4, Follows simple commands [facility] 06-22-2022 Mental Status [facility] 06-21-2022 Mental Status [facility] 06-20-2022 Mental Status [facility] 06-19-2022 Mental Status [facility] 06-17-2022 Mental Status Orientation Oriented x 4 [facility] 06-17-2022 [facility] 04-12-[facility] Mental Status Oriented x 4 [facility] 03-10-2022 Mental Status Orientation Oriented x 4 [facility] 03-10-2022 Mental Status [facility] 02-11-2022 Mental Status Orientation Oriented x 4 [facility] 02-11-2022 Mental Status [facility] 02-02-2022 Mental Status [facility] 02-02-2022 Mental Status [facility] Clinical Notes 04-29-2021 to 06-16-2024 Odilia Gunn APRN.RAIL ASSEMBLER - 06/16/2024 11:23 AM EDTTelephone Hortencia - Jude Dominguez MA - 06/12/2024 7:54 AM EDTTelephone Encounter - Jude Dominguez MA - 06/12/2024 7:54 AM EDTAttachments<item> Note Date & Type Note Facility 06-16-2024 History of Present illness Narrative Came in with complaints of urinary discomfort and lower back pain for about 3 weeks. Patient was previously placed in the hospital for kidney infection with a rare bacteria. Upon examination patient has bilateral flank pain of an 8 out of 10. It brought tears to the patient's eyes and she was guarding. Patient is being referred to the emergency room for evaluation. Patient was okay with this care plan and will take her self. documented in this encounter [facility] 06-14-2024 Note HNO ID: [id number] Author: LYNN MAIER MD Service: ? Author [...] and sent to Pathology. Lynn Maier MD [facility] 06-12-2024 Telephone encounter Note Received prior auth for Baclofen, will disregard since it looks like patient has already picked up medication. Jude Dominguez MA [facility] 06-12-2024 Miscellaneous Notes Received prior auth [...] was to try that. Laury Orr APRN.HAMLET Patient calling with update since starting Baclofen. [...] Elyse Rosales RN documented in this encounter [facility] 06-11-2024 Telephone encounter Note Called patient and states she is starting to feel a little better. Patient states she already has lidocaine gel and patches at home and was using them, but not helping a whole lot. Cj Downey RN [facility] 06-11-2024 Telephone encounter Note Noted. I can order some topical lidocaine if she was to try that. Laury Orr APRN.HAMLET [facility] 06-11-2024 Telephone encounter Note Patient calling [...] this though. Please advise. Elyse Rosales RN T [facility] 06-08-2024 Note HNO ID: [id number] Author: LAURY ORR APRN.HAMLET Service: ? Author Type: Nurse Practitioner Type: [...] L2 SAB0 IAB0 Ectopic0 Multiple0 Live Births0 Gum Puller History LMP: Hysterectomy Age at Menarche: Age at First : Age at Menopause: Gum Puller History Comments: Sexual Activity: Yes; Male Contraception: [...] COLLECTION SPECIMEN BRUSHING/WASHING 06/11/15 [facility] ES[facility]GASTRODUODENOSCOPY TRANSORAL DIAGNOSTIC EGD [facility] FILTER [...] DAILY, # 28 tab(s), 5 Refill(s), Pharmacy: [place] [id number], 161, cm, 02/06/20 14:12:00 EDT, Height, kg, [...] discussed with the Patient or Patient's Authorized Franchise Manager. As applicable, any other physician, advance practice provider, medical student, or other health professional student that will be observing or involved in the (more content not included)... [facility] 06-08-2024 History of Present illness Narrative Images [...] L2 SAB0 IAB0 Ectopic0 Multiple0 Live Births0 Gum Puller History LMP: Hysterectomy Age at Menarche: Age at First : Age at Menopause: Gum Puller History Comments: Sexual Activity: Yes; Male Contraception: [...] COLLECTION SPECIMEN BRUSHING/WASHING 06/11/15 [facility] ESOPH[facility]STRODUODENOSCOPY TRANSORAL DIAGNOSTIC EGD [facility] FILTER [...] DAILY, # 28 tab(s), 5 Refill(s), Pharmacy: [facility] [id number], 161, cm, 02/06/20 14:12:00 EDT, Height, kg, [...] discussed with the Patient or Patient's Authorized Franchise Manager. As applicable, any other physician, advance practice provider, medical student, or other health professional student that will be observing or involved in the sensitive examination for educational or training purposes was discussed with the Patient or Authorized Franchise Manager. The Patient or Authorized Franchise Manager has agreed to proceed with the sensitive [...] 3 - Low documented in this encounter [facility] 05-31-2024 Note HNO ID: [id number] Author: LYNN MAIER MD Service: ? Author Type: Physician Type: Progress Notes Filed: 05/31/2024 15:36 Note Text: The sensitive examination was discussed with the Patient or Patient's Authorized Franchise Manager. As applicable, any other physician, advance practice provider, medical student, or other health professional student that will be observing or involved in the sensitive examination for educational or training purposes was discussed with the Patient or Authorized Franchise Manager. The Patient or Authorized Franchise Manager has agreed to proceed with the sensitive examination. (Sensitive examination includes inspection and/or palpation of the breasts, pelvis, prostate and anorectal regions) Stockholder offered: Patient declines. Dorothea Rutledge is a [...] OB History No obstetric history on file. Gum Puller History LMP: Hysterectomy Age at Menarche: Age at First : Age at Menopause: Gum Puller History Comments: Sexual Activity: Yes; Male Contraception: [...] COLLECTION SPECIMEN BRUSHING/WASHING 06/11/15 Ch[facility]angiopanc[facility] (ERCP[facility] ESOPHAGOGASTRODUODENOSCOPY TRANSORAL DIAGNOSTIC EGD [facility] FILTER [...] skin retraction. Exp (more content not included)... [facility] 05-31-2024 History of Present illness Narrative The sensitive examination was discussed with the Patient or Patient's Authorized Franchise Manager. As applicable, any other physician, advance practice provider, medical student, or other health professional student that will be observing or involved in the sensitive examination for educational or training purposes was discussed with the Patient or Authorized Franchise Manager. The Patient or Authorized Franchise Manager has agreed to proceed with the sensitive examination. (Sensitive examination includes inspection and/or palpation of the breasts, pelvis, prostate and anorectal regions) Stockholder offered: Patient declines. Dorothea Rutledge is a [...] OB History No obstetric history on file. Gum Puller History LMP: Hysterectomy Age at Menarche: Age at First : Age at Menopause: Gum Puller History Comments: Sexual Activity: Yes; Male Contraception: [...] COLLECTION SPECIMEN BRUSHING/WASHING 06/11/15 Cholangiopancreatography (ERCP) [facility]pt [facility] ESOPHAGOGASTRODUODENOSCOPY TRANSORAL DIAGNOSTIC EGD LUH FILTER [...] ABDOMEN: Deferred PELVIC: normal Bartholin's glands, urethra, [place]'s glands, vulvar lesion skin tag on perineum. 6 o'clock in reference to introitus BIMANUAL: deferred NEURO: alert and oriented x3,exam grossly non-focal EXTREMITIES: normal ASSESSMENT AND PLAN: Encounter Diagnosis ICD-10-CM 1. Vulvar skin tag N90.89 SURGICAL PATHOLOGY 2. Vaginal yeast infection B37.31 Skin tag removed Lynn Maier MD documented in this encounter [facility] 03-05-2024 Hospital Discharge instructions Sally Bourgeois PA-C - 03/05/2024 6:20 PM EDT Hold your Coumadin tonight. Please call the Coumadin clinic tomorrow to discuss how to move forward. The following attachments cannot be sent through Care Everywhere.Taking oral medicines for blood clots (Micronesian)documented in this encounter [facility] Work Phone: 03-05-2024 Emergency department Note HPI [...] Substances: Nicotine, have a marijuana card Devices: [employer] Substance Use Topics Alcohol use: Not Currently [...] bleeding at time of exam Mouth/Throat: Lips: Diggins. No lesions. Mouth: Mucous membranes are moist. [...] bpm. Normal axis. No ST segment elevation. HI interval 136 with a QT of 328 Procedure Procedures Sally Bourgeois PA-C 03/05/24 0143 documented in this encounter [facility] Work Phone: 03-05-2024 Physician Emergency department Note [...] currently on Coumadin. History provided by: Patient [place] Coma Scale Score: 15 Patient History Past [...] Substances: Nicotine, have a marijuana card Devices: [employer] Substance Use Topics Alcohol use: Not Currently [...] bleeding at time of exam Mouth/Throat: Lips: Diggins. No lesions. Mouth: Mucous membranes are moist. [...] bpm. Normal axis. No ST segment elevation. HI interval 136 with a QT of 328 Procedure Procedures Sally Bourgeois PA-C 03/05/241836 [facility] Work Phone: 03-02-2024 History of Present illness Narrative Dorothea Rutledge is a 48 y.o. female on day 3 of admission presenting with Acute pancreatitis without necrosis or infection, unspecified ([facility]). Subjective Patient seems to be feeling better [...] charges for Pt's care will begin 03/03. TIMUR met w/ Pt at bedside. Pt stated understanding and stated Pt plans to leave hospital today. Pt requested follow up from Hospitalist Dr. Nolen regarding Pt's abdominal scan and requested medications to manage Pt's current pain levels. SW communicated re: Pt's requests and receipt of appeal decision to Dr. Nolen. TIMUR received tc from Fady @ [employer] confirming that SW had sent appropriate items to [facility] and TIMUR confirmed this had been done. Same requested that SW fax the IMM to [employer] and SW did so. No further CT/SW assistance needs anticipated. Record Cutter and CARINA/Yamilet met with patient at bedside to listen as patient discussed concerns related to patient's hospital discharge today. SW and CARINA/Yamilet offered support and understanding. Patient decided to appeal hospital discharge; SW supported patient during phone call to [facility]. - 1730: SW attached/uploaded all supporting documentation for [place] appeal to [facility] portal. Appeal Case no. [id number]. Plan for patient to return home pending outcome of discharge appeal with [facility]. Care Transitions to follow and assist. FLORENTINO [...] while on Lovenox. Spoke with Dr. Nolen [facility] provider about patient medication concerns and she would like to be therapeutic before leaving. Provider feels she can safely bridge medications at home and be set up with out patient coumadin clinic to maintain therapeutic levels. Yamilet Garcia RN/TCC - [id number] Returned to patient room with SW at [...] Follow-up Continue Visiting: Yes Referral To: Nurse Episcopalian Encounters Episcopalian Needs: Sacred text, Literature, Spiritual care brochure, [...] (Level of Unmet Needs) Existential Struggle: Some Spiritual/Episcopalian Struggle: Further assess Legacy: Further assess Relationships: [...] necrosis or infection, unspecified ([facility]). Subjective Patient seen at bedside this morning. [...] Acute pancreatitis without necrosis or infection, unspecified ([facility]) Results for orders placed or performed during [...] urgent cholecystectomy in mid January. Transferred to [facility] for treatment of pancreatitis. Ended up here after discharge from [facility] with recurrent pancreatitis. Transaminases again have normalized. Pain is consistent with acute pulmonary emboli. Now dealing with chronic constipation related to her narcotic abuse. OARRS report was reviewed. Patient receiving multiple narcotics and controlled drugs from multiple practitioners traveling from [facility] to walk but cannot her to [...] Acute pancreatitis without necrosis or infection, unspecified ([facility]). Subjective Patient laying in bed requesting additional [...] the discretion of her vascular doctor or burn table operator. Patient also requested an increase in dose [...] Dominick Naik ([id number]) on 02/28/2024 9:53:18 PM Lower extremity venous duplex bilateral [place] [phone], Vascular Lab Report [facility] LOWER EXTREMITY VENOUS DUPLEX BILATERAL Patient Name: DOROTHEA Lees Physician: [id number] Princess Ramírez MD Study Date: 02/28/2024 Ordering Provider: [id number] BREA NOLEN MRN/PID: [id number] Fellow: Technologist: Radha Lewis RVT/AB Date of /Age: 4 1975 Technologist 2: years Gender: F Admission Status: Inpatient Location [facility] Performed: Diagnosis/ICD: Other pulmonary embolism without acute cor pulmonale-I26.99 CPT Codes: 55559 Peripheral venous duplex scan for DVT complete [...] Popliteal Yes None Spontaneous/Phasic Peroneal Yes None [id number] Ramírez MD Final Transthoracic Echo (TTE) Complete [place] [phone] [phone], TRANSTHORACIC ECHOCARDIOGRAM REPORT Patient Name: DOROTHEA Lees Physician: [id number] Leon Barrera MD Study Date: 02/28/2024 Ordering Provider: [id number] BREA NOLEN MRN/PID: [id number] Fellow: Nurse: Elyssa Simental RN Date of /Age: 4 1975 / 48 years Portfolio Specialist: BUNNY Higuera RVT Gender: F Additional Staff: Height: 162.56 cm Admit Date: 02/27/2024 Weight: 102.51 kg Admission Status: Inpatient - Routine BSA / BMI: 2.06 m2 / 38.79 kg/m2 Department Location: [address] Blood Pressure: 147 /81 mmHg Study Type: TRANSTHORACIC ECHO (TTE) COMPLETE Diagnosis/ICD: Single subsegmental Pulmonary embolism without acute cor pulmonale-I26.93 Indication: PE CPT Codes: Echo Complete w Full Doppler-27644 Patient History: Pertinent History: No previous echo. [...] LA Area A2C: 13.5 cm2 LA Major [place] A4C: 5.2 cm LA Major [place] A2C: 5.5 cm LA Volume Index: 13.1 [...] 1.6 m/s (0.6-0.9m/s) PV Max P.6 mmHg [id number] Leon Barrera MD Electronically signed on 02/28/2024 at 10:49:[address] angio chest for pulmonary embolism Narrative: STUDY: CT Angiogram of the Chest; 02/27/2024 11:09 PM INDICATION: Filling defect in right lower lobe. History of pulmonary embolism. COMPARISON: None Available. ACCESSION NUMBER(S): [id number] ORDERING CLINICIAN: MIKE LAND TECHNIQUE: CTA of [...] pancreatitis without necrosis or infection, unspecified ([facility]) Acute on chronic pancreatitis without necrosis -Amylase [...] Chronic pain syndrome -Managed by Dr.Kutaiba Rasmussen [facility] -Will reach out to Dr. Rasmussen [...] addressed that issue immediately. ADOD is 24hrs. [facility] . CT to follow. Oneida SANCHEZ/RN-TCC 02/28/24 1230 Discharge Planning Living Arrangements Spouse/significant [...] place to sleep or slept in a fpc (including now)? N Transportation Needs In the [...] story home. PCP is Dr. Rivera at [facility] currently, however, they will no longer be taking her insurance and she is looking for a new PCP. List provided of [place] PCP's available for new patients. Her pharmacy of choice is [facility] in [place] for prescription needs. She is independent at home with ADL's. She can drive but does not drive long distances or very often. Her mode of transportation is her mom and significant other. Denies the need for any diabetic supplies. She States she is in need of a shower chair however her insurance does not cover this DME. Discussed [facility] for free DME when they have it available; resource flyer provided with address and phone number. [facility] . Plan is to return home with significant other when discharged. No further needs or in home services at this time. Care team to follow. Yamilet Garcia RN/TCC documented in this encounter [facility] Work Phone: 03-01-2024 Plan of care note [...] Outcome: Progressing Goal: Electrolytes WNL Outcome: Progressing [facility] 03-01-2024 Miscellaneous Notes The patient's goals for [...] Xarelto was again changed to Lovenox at [facility]. This admission patient comes back with pulmonary [...] PRN pain medication documented in this encounter [facility] Work Phone: 03-01-2024 Nurse Note Discharge Note: [...] of pain medication request and numbers for [facility] providers given to pt. Denies further questions or concerns. Reviewed follow up appts with pt and verbalizes understanding. Finn VILLANUEVA [facility] 03-01-2024 Nurse Note Discharge Note: 03/01/2024 1254 [...] understanding. Finn RN documented in this encounter [facility] Work Phone: 03-01-2024 Hospital course Narrative Discharge Diagnosis Acute pancreatitis without necrosis or infection, unspecified ([facility]) Issues Requiring For follow up Coumadin clinic [...] 12,000-38,000 -60,000 unit capsule Generic drug: pancrelipase (Ioo-Kojw-Esbm) Take 2 capsules by mouth 3 times [...] unit/mL (3 mL) injection Commonly known as: Richardsonunancy Max Solostar- 2 unit dial ketamine (bulk) [...] Your Medications These medications were sent to [facility] [address] [id number] Hours: 8 AM to 5:30 Mon-Fri, 8 [...] urgent cholecystectomy in mid January. Transferred to [facility] for treatment of pancreatitis per the patient as we spoke. Ended up here after discharge from [facility] with recurrent pancreatitis. Transaminases [...] medicines and will need to follow-up with final touch up painter Currently hemodynamically stable for DC home Again [...] reiterated that she had ERCP done at [facility] subsequently led to pancreatitis and transferred to [facility] for that. Then she [...] Center 03/09/2024 2:20 PM Kirby Guillen MD [id number] [facility] 03/14/2024 8:00 AM INF 03 PARM OPCTR PAROPCINF [place] 03/28/2024 7:30 AM INF 02 PARM OPCTR PAROPCINF [place] 04/09/2024 11:00 AM Colton Hicks MD [id number] [facility] 04/11/2024 10:00 AM INF 03 PARM OPCTR PAROPCINF [place] 04/25/2024 8:30 AM INF 02 PARM OPCTR PAROPCINF [place] Time to dc > 35 mins Brea Nolen MD documented in this encounter [facility] Work Phone: 03-01-2024 Plan of care note [...] Outcome: Progressing Goal: Electrolytes WNL Outcome: Progressing [facility] 02-29-2024 Consult note Associated Order (s): PHARMACY [...] 5 Leiden mutation, heterozygous (Multi) (Chronic) D68.51 [facility] Coag Clinic patient - No Ordering [...] patient does live quite a distance away ([facility]) so she may need to go back to her PCP or a coag clinic near her home for management. [facility] Work Phone: 02-29-2024 Consult note Associated Order [...] 5 Leiden mutation, heterozygous (Multi) (Chronic) D68.51 [facility] Coag Clinic patient - No Ordering [...] patient does live quite a distance away ([facility]) so she may need to go back to her PCP or a coag clinic near her home for management. Consults Reason For Consult Possible pancreatitis History Of Present Illness Dorothea Rutledge is a 48 y.o. 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 Underwent drainage of pancreatic pseudocyst endoscopically January [address] Mason Agrawal at [facility]. Had uneventful drainage procedure and then developed acute complicated cholecystitis surgery was performed at [facility]. Underwent ERCP after surgery for retained bile duct stone. Stent was placed and 1 stone was unable to be retrieved. Because of worsening symptoms of pancreatitis was ultimately transferred to [facility] for further evaluation. Patient resolved with medical management only. Within a week of discharge from [facility] she was presented to our ER with [...] from multiple pharmacies throughout the state including [facility] but can add a, [place], [place], [place] and [place]. Patient has prior history of narcotic abuse [...] from last 7 days Lab Units 02/29/24 0512 02/28/2431702/27/24 1832 WBC AUTO x10*3/uL 5.7 9.7 12.5* [...] Units, subcutaneous, TID [Held by provider] pancrelipase (Aoi-Iybz-Gcly), 2 capsule, oral, TID pantoprazole, 40 mg, [...] (kCal): 2000 kCal Method for Estimating Needs: [place] [address] Lyn = kcal Total Protein Estimated Needs (g): [...] diet monitor for ability to advance to [facility] Collaboration and Referral of Nutrition Care: [...] Needed?: 5-7 days Follow up Comment: diet jenny, po, labs Alaina Paez RDN, LD documented in this encounter [facility] Work Phone: 02-29-2024 Consult note Formatting of th is note is different from the original. Consults Reason For Consult Possible pancreatitis History Of Present Illness Dorothea Rutledge is a 48 y.o. 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 Underwent drainage of pancreatic pseudocyst endoscopically January [address] Mason Agrawal at [facility]. Had uneventful drainage procedure and then developed acute complicated cholecystitis surgery was performed at [facility]. Underwent ERCP after surgery for retained bile duct stone. Stent was placed and 1 stone was unable to be retrieved. Because of worsening symptoms of pancreatitis was ultimately transferred to [facility] for further evaluation. Patient resolved with medical management only. Within a week of discharge from [facility] she was presented to our ER with [...] including well but can add a, [place], [place], [place] and [place]. Patient has prior history of narcotic abuse [...] professional and overall care of this patient. [facility] Work Phone: 02-29-2024 Note Formatting of this [...] Xarelto was again changed to Lovenox at [facility]. This admission patient comes back with pulmonary embolus because she missed 1 dose. The patient is requesting to be back on warfarin. I had recommended patient still needs a heme-onc opinion when she goes as outpatient. Discussed with pharmacy about the issue and they were on board. Will start warfarin 5 mg and check daily INR. We have already on heparin for bridging. [facility] Work Phone: 02-29-2024 Consult note Associated Order [...] Units, subcutaneous, TID [Held by provider] pancrelipase (Frk-Aymt-Iutg), 2 capsule, oral, TID pantoprazole, 40 mg, intravenous, Daily polyethylene glycol, 17 g, oral, Daily potassium chloride CR, 20 mEq, oral, Daily promethazine, , , I/O: Last BM Date: 02/28/24; Dietary Orders (From admission, onward) Start Ordered 02/28/24 0406 Adult diet Clear Liquid Diet effective now Question: Diet type Answer: Clear Liquid 02/28/24 0405 Estimated Needs: Total Energy Estimated Needs (kCal): 2000 kCal Method for Estimating Needs: [place]iki = kcal Total Protein Estimated Needs (g): [...] diet monitor for ability to advance to [facility] Collaboration and Referral of Nutrition Care: [...] advance, po, labs Alaina Paez RDN, LD [facility] Work Phone: 02-29-2024 Plan of care note The patient's goals for the shift include pain control The clinical goals for the shift include pain control Pt c/o pain in mid to lower abd and around R rib area. Pain controlled with PRN medication. [facility] Work Phone: 02-28-2024 Plan of care note [...] by end of shift Outcome: Progressing . [facility] 02-28-2024 Note Formatting of this n ote [...] at at bedtime. Long discussion on polypharmacy. [facility] Work Phone: 02-28-2024 Plan of care note The patient's goals for the shift include pain control The clinical goals for the shift include pain control Over the shift, the patient had tolerable pain control with prescribed PRN pain medication [facility] Work Phone: 02-28-2024 History and physical note [...] 10/16/2017 MR HEAD ANGIO WO IV CONTRAST [facility] MR NECK ANGIO WO IV CONTRAST 10/16/2017 MR NECK ANGIO WO IV CONTRAST [facility] US GUIDED PERCUTANEOUS PLACEMENT 06/08/2019 US GUIDED PERCUTANEOUS PLACEMENT [facility] INPATIENT LEGACY Social History She reports that [...] succinate XL, 25 mg, oral, Daily pancrelipase (Ajf-Rzxo-Lvrq), 2 capsule, oral, TID pantoprazole, 40 mg, [...] Yellow, Dark-Yellow Appearance, Urine Clear Clear Specific [place], Urine 1.033 1.005 - 1.035 pH, Urine [...] pulmonary embolism. COMPARISON: None Available. ACCESSION NUMBER(S): [id number] ORDERING CLINICIAN: MIKE LAND TECHNIQUE: CTA of [...] Signs/Symptoms:diffuse abdominal pain. COMPARISON: 02/15/2024. ACCESSION NUMBER(S): [id number] ORDERING CLINICIAN: HEMALATHA JACOBSON TECHNIQUE: Axial CT [...] Letha Jade 02/27/2024 9:21 PM Dictation workstation: [id number] All data reviewed by me independently Assessment/Plan [...] as clinical course evolves Brea Nolen MD [facility] Work Phone: 02-28-2024 History and physical note [...] PERCUTANEOUS PLACEMENT [facility]PATIENT LEGACY Social History She reports that [...] succinate XL, 25 mg, oral, Daily pancrelipase (Svv-Muve-Uyrk), 2 capsule, oral, TID pantoprazole, 40 mg, [...] 125 mL/hr, Last Rate: 125 mL/hr (02/28/24 3776) PRN medications PRN medications: acetaminophen OR acetaminophen [...] Yellow, Dark-Yellow Appearance, Urine Clear Clear Specific [place], Urine 1.033 1.005 - 1.035 pH, Urine [...] pulmonary embolism. COMPARISON: None Available. ACCESSION NUMBER(S): [id number] ORDERING CLINICIAN: MIKE LAND TECHNIQUE: CTA of [...] Signs/Symptoms:diffuse abdominal pain. COMPARISON: 02/15/2024. ACCESSION NUMBER(S): [id number] ORDERING CLINICIAN: HEMALATHA JACOBSON TECHNIQUE: Axial CT [...] Letha Jade 02/27/2024 9:21 PM Dictation workstation: [id number] All data reviewed by me independently Assessment/Plan [...] Brea Nolen MD documented in this encounter [facility] Work Phone: 02-27-2024 Emergency department Note Patient [...] Color, Urine Light-Yellow Appearance, Urine Clear Specific [place], Urine 1.033 pH, Urine 6.5 Protein, Urine [...] Abnormality Status --------- ------ Urinalysis with Reflex C...[[id number]] Abnormal Final result Extra Urine Vaca Tube[[id number]] Please view results for these tests on [...] Letha Jade 02/27/2024 9:21 PM Dictation workstation: [id number] CT angio chest for pulmonary embolism (Results [...] AM. 2.Fatty liver. Signed by Edwin Alejandro, CT abdomen pelvis w IV contrast Final [...] Letha Jade 02/27/2024 9:21 PM Dictation workstation: [id number] Diagnoses as of 02/28/24 032 Pulmonary embolism on right (Multi) Idiopathic chronic [...] (Multi) Procedure Procedures MD Mike Gay MD 02/28/24324 documented in this encounter [facility] Work Phone: 02-27-2024 Physician Emergency department Note [...] Color, Urine Light-Yellow Appearance, Urine Clear Specific [place], Urine 1.033 pH, Urine 6.5 Protein, Urine [...] Abnormality Status --------- ------ Urinalysis with Reflex C...[[id number]] Abnormal Final result Extra Urine Vaca Tube[[id number]] Please view results for these tests on [...] Letha Jade 02/27/2024 9:21 PM Dictation workstation: [id number] CT angio chest for pulmonary embolism (Results [...] transitioned to attending physician, Dr. Land at 2220 Amount and/or Complexity of Data Reviewed Labs: ordered. Decision-making details documented in ED Course. Radiology: ordered. Decision-making details documented in ED Course. Hemalatha Jacobson PA-C 02/27/242221 [facility] Work Phone: 02-27-2024 Physician Emergency department Note [...] AM. 2.Fatty liver. Signed by Edwin Alejandro, CT abdomen pelvis w IV contrast Final [...] Letha Jade 02/27/2024 9:21 PM Dictation workstation: [id number] Diagnoses as of 02/28/24 032 Pulmonary embolism on right (Multi) Idiopathic chronic [...] (Multi) Procedure Procedures MD Mike Gay MD 02/28/24324 [facility] Work Phone: 02-02-2024 History of Present illness [...] as stated. This study was interpreted at [facility], [place], [place]. MACRO: None Electronically signed by: CARISSA [...] Therapies: IV infusions documented in this encounter [facility] Work Phone: 12-08-2023 Nurse Note 12/08/2023 Nursing Note: Patient discharged to home with Meds to bed from [facility] pharmacy. RN discussed discharge instructions with Patient. Patient verbalized understanding and copy of After Visit summary given to patient [facility] 12-08-2023 Nurse Note 12/08/2023 Nursing Note: Patient discharged to home with Meds to bed from [facility]. RN discussed discharge instructions with Patient. Patient verbalized understanding and copy of After Visit summary given to patient documented in this encounter [facility] Work Phone: 12-08-2023 Plan of care note [...] by patient and taken for discharge home. [facility] 12-08-2023 Miscellaneous Notes The patient's goals for [...] toward the following goals. Patient admitted to [place] [address] from the endoscopy suite. Patient c/o elevated [...] throughout the shift Outcome: Progressing SEE EXCELLENT POWER WASHER'S NOTE FOR FURTHER DETAILS FOR H&P History [...] ROS unless stated above. On arrival to [facility]: There were no vitals [...] to hold at 4AM preprocedure -NPO at [facility] for planned stent removal and cyst reassessment -c/w low fat diet and Creon -can likely discharge after procedure F: PRN E: PRN N: low fat diet GI ppx: none DVT ppx: heparin gtt Code status: Full code NOK: Lizz Dockery - [phone] Johan Burton MD documented in this encounter [facility] Work Phone: 12-08-2023 Hospital course Narrative Discharge [...] 12,000-38,000 -60,000 unit capsule; Generic drug: pancrelipase (Emi-Rmxd-Knpm); Take 2 capsules by mouth 3 times [...] 8:00 AM INF 04 PARM OPCTR PAROPCINF [place] 01/04/2024 8:00 AM INF 03 PARM OPCTR PAROPCINF [place] 01/04/2024 11:00 AM Colton Hicks MD [id number] [facility] 01/04/2024 1:00 PM Sun Galloway MD [id number] [facility] 01/18/2024 8:30 AM INF 02 PARM OPCTR PAROPCINF [place] 02/01/2024 8:30 AM INF 01 PARM OPCTR PAROPCINF [place] 02/15/2024 8:30 AM INF 02 PARM OPCTR PAROPCINF [place] Nancy Agrawal MD documented in this encounter [facility] Work Phone: 12-08-2023 Hospital Discharge instructions Andreea Gandhi MD - 12/08/2023 12:21 PM EDT Discharge Instructions Dear Dorothea Rutledge, You were admitted to [facility] as you were unable to have your [...] them in next few days, please call [facility] appointment line: [phone] or You have an appointment with Dr. Galloway (Vascular Medicine) on 01/03 You have an appointment with Dr. Hicks (GI) on 01/03 It was a pleasure taking care of you, Your Care Team documented in this encounter [facility] Work Phone: 12-08-2023 Hospital Note Formatting of [...] with Vascular Medicine and GI follow up. [facility] Work Phone: 12-08-2023 Plan of care note [...] not make progress toward the following goals. [facility] 12-07-2023 Note Formatting of this n ote might be different from the original. Abdomen [facility] 12-07-2023 Plan of care note Patient down [...] education by end of shift Outcome: Progressing [facility] Work Phone: 12-07-2023 History of Present illness [...] been taking 25mg metop succinate per her risk assessor for an elevated heart rate with extra [...] oral, Daily nystatin, , Topical, q8h pancrelipase (Eqr-Syum-Ulje), 2 capsule, oral, TID with meals polyethylene [...] Rommel Malagon. This study was interpreted at [facility], [place], [place]. MACRO: Critical Finding: See findings. Notification was initiated on 12/06/2023 at 9:31 am by Rommel Malagon. (-OCF-) Instructions: Signed by: Letha Pennington 12/06/2023 12:19 PM Dictation workstation: [id number] Lower extremity venous duplex bilateral (Results Pending) [...] (confirmed on admission) NOK: Lizz Dockery (mother) [phone] Dispo: Ideally will follow up with [facility] however patient lives in [place] Andreea Gandhi MD Internal Medicine, PGY-1 Associated [...] and restart anticoagulation. Patient would prefer Lovenox halfway and need to verify insurance coverage. 12/06/23 [...] place to sleep or slept in a fpc (including now)? N Transportation Needs In the past 12 months, has lack of transportation kept you from medical appointments or from getting medications? no In the past 12 months, has lack of transportation kept you from meetings, work, or from getting things needed for daily living? No Assessment Note: Met with pt and introduced myself as wound care technician and member of the Care Transitions team for discharge planning. Pt feels safe at home. Pt drives or mother provides transport to drs appts. Pt's address, phone number and contact information was verified. Pt does not have any questions/concerns at this time. Previous Home Care: None DME: glucometer, wrist BP cuff, pulse oximeter. Pharmacy: [facility] in [place]: Denies PCP: [facility] HAMLET Rivera (last seen 09/2023-has upcoming appt on next Tuesday). Priti LEWIS, RN- Transitional Record Filing Clerk (TCC) [phone] Dorothea Rutledge is a 47 y.o. female [...] TID AC nystatin, , Topical, q8h pancrelipase (Ylq-Ffpv-Xhjh), 2 capsule, oral, TID with meals polyethylene [...] data in the 24 hours ending 12/06/23 0955 Admission Weight Weight: 104 kg (230 lb) [...] Rommel Malagon. This study was interpreted at [facility], [place], [place]. MACRO: Critical Finding: See findings. Notification was initiated on 12/06/2023 at 9:31 am by Rommel Malagon. (-OCF-) Instructions: See findings. Dictation workstation: [id number] Assessment/Plan Principal Problem: Generalized abdominal pain Dorothea [...] [place] Access: Mediport DVT ppx: hep gtt until 4am GI ppx: None Code status: Full (confirmed on admission) NOK: Lizz Dockery (mother) [phone] Dispo: Ideally will follow up with [facility] however patient lives in [place] Andreea Gandhi MD Internal Medicine, PGY-1 Associated [...] discharge on Lovenox. documented in this encounter [facility] Work Phone: 12-06-2023 Plan of care note [...] Recommendations to address these barriers include . [facility] 12-06-2023 Consult note Associated Order (s): Inpatient consult to Vascular Medicine Inpatient consult to Vascular Medicine Consult performed by: Sun Galloway MD Consult ordered by: Nancy Agrawal MD Reason for consult: concern about Xarelto failure Armida Rutledge is a 47 y.o. female on [...] placed Patient used to see hematology at [facility]. When they were able to anticoagulate [...] TID AC nystatin, , Topical, q8h pancrelipase (Nnt-Jiei-Umxp), 2 capsule, oral, TID with meals polyethylene [...] this interval not displayed. Recent Labs 12/05/23 18211/15/23 0606 11/14/23 18011/14/23 0500 11/13/23 0450 11/12/23 0447 11/10/23 1650 [...] interval not displayed. Recent Labs 12/06/23 0511 12/05/23181911/15/23 0606 11/14/23 18011/14/23 0500 11/13/23 0032 11/12/23 0447 11/11/23 1610 WBC 6.5 8.0 12.4* 9.0 5.8 5.9 5.3 4.9 HGB 12.8 12.1 10.9* 11.4* 10.9* 10.9* 11.1* 11.1* HCT 40.2 38.3 35.2* 35.2* 34.7* 35.0* 35.0* 33.3* PLT 261 268 213 247 266 281 255 243 MCV 92 92 95 93 94 93 91 88 Recent Labs 12/06/23 0511 12/06/23 0203 12/05/23181911/13/23 0032 11/12/23 2125 11/12/23 1606 11/12/23 1006 [...] PE Patient used to see hematology at [facility]. Was maintained on Coumadin for >20 [...] with questions or concerns Sun Galloway MD [facility] Work Phone: 12-06-2023 Consult note Associated Order (s): Inpatient consult to Vascular Medicine Inpatient consult to Vascular Medicine Consult performed by: Sun Galloway MD Consult ordered by: Nancy Agrawal MD Reason for consult: concern about Xarelto failure Armida Rutledge is a 47 y.o. female on [...] placed Patient used to see hematology at [facility]. When they were able to anticoagulate [...] TID AC nystatin, , Topical, q8h pancrelipase (Ezl-Eiaf-Uhwq), 2 capsule, oral, TID with meals polyethylene [...] in this interval not displayed. Recent Labs 12/05/23181911/15/23 0611/14/23 18011/14/23 0500 11/13/23 0450 11/12/23 0447 11/10/23 1650 [...] this interval not displayed. Recent Labs 12/06/23 0512/05/23181911/15/23 0611/14/23180511/14/23 0500 11/13/23 00311/12/23 04411/11/23 1610 WBC 6.5 8.0 12.4* 9.0 5.8 5.9 5.3 4.9 HGB 12.8 12.1 10.9* 11.4* 10.9* 10.9* 11.1* 11.1* HCT 40.2 38.3 35.2* 35.2* 34.7* 35.0* 35.0* 33.3* PLT 261 268 213 247 266 281 255 243 MCV 92 92 95 93 94 93 91 88 Recent Labs 12/06/23 0511 12/06/23 0203 12/05/23181911/13/23 00311/12/23212411/12/23 1606 11/12/23 1006 11/12/23 0447 11/11/23 2358 [...] PE Patient used to see hematology at [facility]. Was maintained on Coumadin for >20 [...] Sun Galloway MD documented in this encounter [facility] Work Phone: 12-06-2023 Plan of care note Problem: Pain Goal: My pain/discomfort is manageable Outcome: Progressing The patient's goals for the shift include The clinical goals for the shift include patient will rate pain at or below a level of 4 out of 10 by the end of this shift. Over the shift, the patient did not make progress toward the following goals. [facility] Work Phone: 12-05-2023 Plan of care note Patient admitted to [place] [address] from the endoscopy suite. Patient c/o elevated [...] pain meds throughout the shift Outcome: Progressing [facility] Work Phone: 12-05-2023 History and physical note [...] (has no administration in time range) pancrelipase (Cgn-Iety-Gzof) (Creon) 12,000-38,000 -60,000 unit per capsule 2 [...] Awareness under anesthesia, Depression, Factor V Leiden ([facility]), Pancreatitis, Seizure ([facility]), and Stroke ([facility]). Surgical History She has a past surgical [...] Tuesday, # 13 cap(s), 3 Refill(s), Pharmacy: [facility], 160, cm, 01/24/23 14:30:00 [...] NAUSEA 04/28/23 04/27/24 Terry Kaiser MD pancrelipase, Lar-Lqed-Nqfl, (Creon) 12,000-38,000 -60,000 unit capsule Take 2 [...] (confirmed on admission) NOK: Lizz Dockery (mother) [phone] Andreea Gandhi MD Internal Medicine, PGY-1 Associated [...] cystgastrostomy and ask Vascular Medicine to see. [facility] Work Phone: 12-05-2023 History and physical note [...] (has no administration in time range) pancrelipase (Fgp-Cfrk-Iaep) (Creon) 12,000-38,000 -60,000 unit per capsule 2 [...] Awareness under anesthesia, Depression, Factor V Leiden ([facility]), Pancreatitis, Seizure ([facility]), and Stroke ([facility]). Surgical History She has a past surgical [...] Tuesday, # 13 cap(s), 3 Refill(s), Pharmacy: [facility], 160, cm, 01/24/23 14:30:00 [...] NAUSEA 04/28/23 04/27/24 Terry Kaiser MD pancrelipase, Eqo-Dorc-Zshb, (Creon) 12,000-38,000 -60,000 unit capsule Take 2 [...] (confirmed on admission) NOK: Lizz Dockery (mother) [phone] Andreea Gandhi MD Internal Medicine, PGY-1 Associated [...] Medicine to see. documented in this encounter [facility] Work Phone: 12-05-2023 Note Formatting of this n ote might be different from the original. SEE EXCELLENT POWER WASHER'S NOTE FOR FURTHER DETAILS FOR H&P History [...] ROS unless stated above. On arrival to [facility]: There were no vitals [...] to hold at 4AM preprocedure -NPO at [place] for planned stent removal and cyst reassessment -c/w low fat diet and Creon -can likely discharge after procedure F: PRN E: PRN N: low fat diet GI ppx: none DVT ppx: heparin gtt Code status: Full code NOK: Lizz Dockery - [phone] Johan Burton MD [facility] Work Phone: 12-05-2023 Nurse Note Doctor cancel appt due to patient not prepped for procedure. All not ified doctor will be in to see patient prior to her leaving. [facility] Work Phone: 11-15-2023 Hospital course Narrative Discharge [...] condition with GI follow up. Abdominal pain 2/ to pancreatic pseudocyst Pain was controlled Patient [...] 12,000-38,000 -60,000 unit capsule; Generic drug: pancrelipase (Pfo-Vqdm-Frzz); Take 2 capsules by mouth 3 times [...] AM INF 03 [facility] [place] 12/07/2023 7:30 AM INF 02 [facility] [place] 12/21/2023 8:00 AM INF 04 PARM [facility]R [facility] [place] 01/04/2024 8:00 AM INF 03 PARM [facility]CTR [facility] [place] 01/18/2024 8:30 AM INF 02 PARM OPCTR [facility] [place] 02/01/2024 8:30 AM INF 01 PARM OPCTR [facility] [place] 02/15/2024 8:30 AM INF 02 PARM [facility]CTR [facility] [place] Chastity León MD documented in this encounter [facility] Work Phone: 11-15-2023 History of Present illness Narrative Gastroenterology Consult Service Progress Note Department of Gastroenterology & Hepatology [facility] November 15, 2023 Patient: Dorothea Rutledge Medical Record: [id number] Reason for Initial Consult: pancreatic pseudocyst Requesting Service: hospital medicine Interval History: s/p EUS guided cystgastrostomy yesterday. Still off heparin, plan to resume this AM. Remains HDS, AF. Does feel warm, but has been afebrile. Abd with minimal pain. Physical Exam: Vitals: 11/14/23 2002 11/14/23 2335 11/15/23 0333 11/15/23 0554 BP: 119/71 [...] Shelli Paris 11/09/2023 3:51 PM Dictation workstation: [id number] GI procedures: 03/2016 Cscope Cecum: Normal. Ascending: [...] w/ AIP) who has been admitted to [facility] ED on 11/11/23 for abdominal pain. Recent [...] to identify any interposed vessels. Using the eeGeoOS stent delivery system, the cavity was punctured [...] [place] [phone]. Thank you. SIGNATURE: Nadia Weaver MD PATIENT [...] Daily nystatin, 1 Application, Topical, BID pancrelipase (Ggt-Ctuo-Gcxu), 2 capsule, oral, TID with meals pantoprazole, [...] prior inpatient records available, labs, imaging, and oracle wms consultant notes. Personally discussed with nursing staff and transitional wound care technician. Current work up, and treatment and discharge plan is discussed with the patient and counselling is provided. Repeat labs are ordered as needed. Chastity León MD 11/14/23 1515 Transitional Record Filing Clerk Notes: Assessment Note: Met with patient to [...] Department of Gastroenterology & Hepatology [facility] November 14, 2023 Patient: Dorothea Rutledge Medical Record: [id number] Reason for Initial Consult: pancreatic pseudocyst Requesting [...] Shelli Paris 11/09/2023 3:51 PM Dictation workstation: [id number] GI procedures: 03/2016 Cscope Cecum: Normal. Ascending: [...] w/ AIP) who has been admitted to [facility] ED on 11/11/23 for abdominal pain. Recent [...] to identify any interposed vessels. Using the eeGeoOS stent delivery system, the cavity was punctured [...] to contact me on DocHalo or page [phone] if there are any further questions between the weekday hours of 7 AM - 5 PM. If there is an urgent concern during the weekend, after-hours, or holidays; then [place] [phone]. Thank you. SIGNATURE: Nadia Weaver MD PATIENT [...] Note Department of Gastroenterology & Hepatology [facility] [place] [facility] November 13, 2023 Patient: Dorothea Rutledge Medical Record: [id number] Reason for Initial Consult: pancreatic pseudocyst Requesting [...] Shelli Paris 11/09/2023 3:51 PM Dictation workstation: [id number] GI procedures: 03/2016 Cscope Cecum: Normal. Ascending: Normal Transverse: Normal Descending:Normal Sigmoid: Normal Rectum: Normal Retroflexed views: Grade II internal hemorrhoids ERCP 2018 (elevated Lft, c/f choledocho) Impression: - The [...] Ketamine infusion) who has been admitted to [facility] ED on 11/11/23 for abdominal pain. Recent [...] to contact me on DocHalo or page [phone] if there are any further questions between the weekday hours of 7 AM - 5 PM. If there is an urgent concern during the weekend, after-hours, or holidays; [place] [phone]. Thank you. SIGNATURE: Nadia Weaver MD PATIENT [...] Daily nystatin, 1 Application, Topical, BID pancrelipase (Sab-Jiub-Hsfp), 2 capsule, oral, TID with meals pantoprazole, [...] Yellow, Dark-Yellow Appearance, Urine Clear Clear Specific [place], Urine 1.008 1.005 - 1.035 pH, Urine [...] prior inpatient records available, labs, imaging, and oracle wms consultant notes. Personally discussed with nursing staff and transitional wound care technician. Current work up, and treatment and discharge [...] Daily nystatin, 1 Application, Topical, BID pancrelipase (Rzg-Odic-Akpv), 2 capsule, oral, TID with meals pantoprazole, [...] Progress Note Department of Gastroenterology & Hepatology [facility] November 12, 2023 Patient: Dorothea Rutledge Medical Record: [id number] Reason for Initial Consult: pancreatic pseudocyst Requesting [...] Shelli Paris 11/09/2023 3:51 PM Dictation workstation: [id number] GI procedures: 03/2016 Cscope Cecum: Normal. Ascending: [...] Ketamine infusion) who has been admitted to [facility] ED on 11/11/23 for abdominal pain. Recent [...] seen and discussed with attending, Dr. Agrawal. aNdia Weaver, GI fellow Thank you for the consultation. Gastroenterology will continue to the follow the patient. Please do not hesitate to contact me on DocHalo or page [phone] if there are any further questions between the weekday hours of 7 AM - 5 PM. If there is an urgent concern during the weekend, after-hours, or holidays; [place] [phone]. Thank you. SIGNATURE: Nadia Weaver MD PATIENT [...] succinate XL, 25 mg, oral, Daily pancrelipase (Vdx-Ouqh-Jvxo), 2 capsule, oral, TID with meals pantoprazole, [...] Adelina Og DO documented in this encounter [facility] Work Phone: 11-14-2023 Plan of care note [...] address these barriers include follow med recommendations. [facility] 11-14-2023 Miscellaneous Notes Problem: Pain Goal: My [...] barriers include . documented in this encounter [facility] Work Phone: 11-14-2023 Nurse Note 11/14/2023 Nursing Note: TO GI lab at 8am for endoscopy. Returned to division at 1400, Rating pain 10/10 from all the air that was placed. Diet placed for full liquids. C/o nausea with no emesis. Able to consume a variety of liquids over a few hours. Placed back on tele. Repeat K was 3.8. [facility] 11-14-2023 Nurse Note 11/14/2023 Nursing Note: TO GI lab at 8am for endoscopy. Returned to division at 1400, Rating pain 10/10 from all the air that was placed. Diet placed for full liquids. C/o nausea with no emesis. Able to consume a variety of liquids over a few hours. Placed back on tele. Repeat K was 3.8. Admission note. Patient admitted to [place] [facility] documented in this encounter [facility] Work Phone: 11-14-2023 Note Formatting of this n ote might be different from the original. Pt discharged back to floor in stable condition [facility] 11-14-2023 Note Formatting of this n ote might be different from the original. Report called to Cherry VILLANUEVA, LKVT 60 [facility] Work Phone: 11-14-2023 Plan of care note The patient's goals for the shift include completion of endoscopy. The clinical goals for the shift include pt will have rate pain <4 by the end of shift [facility] Work Phone: 11-13-2023 Plan of care note [...] patient will be without full during shift [facility] 11-13-2023 Plan of care note Problem: Pain [...] to address these barriers include BS monitoring. [facility] Work Phone: 11-12-2023 Plan of care note [...] to identify my specific goals Outcome: Progressing [facility] 11-11-2023 Nurse Note Admission note. Patient admitted to [place] [address] [facility] Work Phone: 11-11-2023 Plan of care note The patient's goals for the shift include The clinical goals for the shift include Over the shift, the patient did not make progress toward the following goals. Barriers to progression include . Recommendations to address these barriers include . [facility] Work Phone: 11-11-2023 Consult note Associated Order (s): IP CONSULT TO GASTROENTEROLOGY [facility] INITIAL CONSULT NOTE Source of Information: The source of the history was patient Consult requested by: Service: Hospital Medicine Reason for Consult: Pancreatic Pseudocyst Admission Chief Complaint: Abdominal pain SUBJECTIVE HPI: Dorothea Rutledge is a 47 y.o. female with a past medical history of factor V Leiden on xarelto, seizures, anxiety, depression and recurrent pancreatitis who has been admitted to [facility] ED on 11/11/23 for abdominal pain. GI consulted for possible pancreatic cyst drainage. Briefly, patient has been having episodes of yearly pancreatitis since 2013, which have all been mild. However, on 01/2023, she had an episode of severe pancreatitis that was initially managed supportively and subsequently found to have necrotizing pancreatitis at [facility]. Patient was transferred from [facility] in March for worsening symptoms of [...] V Leiden (CMS/HCC) Pancreatitis Seizure (CMS/HCC) Stroke ([facility]/HCC) Past Surgical History: Procedure Laterality Date HYSTERECTOMY [...] History Social History Narrative Not on file @SOCHX2@ Vapes nicotine daily around 30 ml Vapes marijuana daily No cigarette use Quit alcohol in 2013 Medications: Scheduled medications ARIPiprazole, 10 mg, oral, Daily benztropine, 0.5 mg, oral, BID divalproex, 250 mg, oral, BID fenofibrate, 160 mg, oral, Daily furosemide, 40 mg, oral, Daily insulin lispro, 0-5 Units, subcutaneous, q4h metoprolol succinate XL, 25 mg, oral, Daily pancrelipase (Yvk-Gwyh-Ykeh), 2 capsule, oral, TID with meals pantoprazole, [...] OR ondansetron, polyethylene glycol EXAM Vital signs: @ZZMPVB47@ Physical Exam Alert and oriented x 3 [...] as stated above by resident physician, Dr. Nanyc Garrido. The study was interpreted at [facility] in [facility]. MACRO: none Signed by: Marie Fisher 11/10/2023 10:20 PM Dictation workstation: [id number] GI Procedures ASSESSMENT / PLAN Assessment and Recommendations: Dorothea Rutledge is a 47 y.o. female with a past medical history of factor V Leiden on xarelto, seizures, anxiety, depression and chronic abdominal pain 2/2 recurrent acute on chronic pancreatitis (on Creon and q2 weeks Ketamine infusion) who has been admitted to [facility] ED on 11/11/23 for abdominal pain. Recent [...] decision making as documented in the note. [facility] Work Phone: 11-11-2023 Consult note Associated Order (s): IP CONSULT TO GASTROENTEROLOGY [facility] INITIAL CONSULT NOTE Source of Information: The source of the history was patient Consult requested by: Service: Hospital Medicine Reason for Consult: Pancreatic Pseudocyst Admission Chief Complaint: Abdominal pain SUBJECTIVE HPI: Dorothea Rutledge is a 47 y.o. female with a past medical history of factor V Leiden on xarelto, seizures, anxiety, depression and recurrent pancreatitis who has been admitted to [facility] ED on 11/11/23 for abdominal pain. GI consulted for possible pancreatic cyst drainage. Briefly, patient has been having episodes of yearly pancreatitis since 2013, which have all been mild. However, on 01/2023, she had an episode of severe pancreatitis that was initially managed supportively and subsequently found to have necrotizing pancreatitis at [facility]. Patient was transferred from [facility] in March for worsening symptoms of [...] V Leiden (CMS/HCC) Pancreatitis Seizure (CMS/HCC) Stroke ([facility]) Past Surgical History: Procedure Laterality Date HYSTERECTOMY [...] History Social History Narrative Not on file @SOCHX2@ Vapes nicotine daily around 30 ml Vapes marijuana daily No cigarette use Quit alcohol in 2013 Medications: Scheduled medications ARIPiprazole, 10 mg, oral, Daily benztropine, 0.5 mg, oral, BID divalproex, 250 mg, oral, BID fenofibrate, 160 mg, oral, Daily furosemide, 40 mg, oral, Daily insulin lispro, 0-5 Units, subcutaneous, q4h metoprolol succinate XL, 25 mg, oral, Daily pancrelipase (Ezv-Frfi-Yfmf), 2 capsule, oral, TID with meals pantoprazole, [...] OR ondansetron, polyethylene glycol EXAM Vital signs: @CXIVQH49@ Physical Exam Alert and oriented x 3 [...] Nancy Garrido. The study was interpreted at [facility] in [facility]. MACRO: none Signed by: Marie Fisher 11/10/2023 10:20 PM Dictation workstation: [id number] GI Procedures ASSESSMENT / PLAN Assessment and Recommendations: Dorothea Rutledge is a 47 y.o. female with a past medical history of factor V Leiden on xarelto, seizures, anxiety, depression and chronic abdominal pain 2/2 recurrent acute on chronic pancreatitis (on Creon and q2 weeks Ketamine infusion) who has been admitted to [facility] ED on 11/11/23 for abdominal pain. Recent [...] in the note. documented in this encounter [facility] Work Phone: 11-10-2023 History and physical note [...] History: Diagnosis Date Depression Factor V Leiden ([facility]/HCC) Pancreatitis Seizure ([facility]/HCC) Stroke (CMS/HCC) Surgical History Past Surgical History: Procedure Laterality Date HYSTERECTOMY IR CVC PORT PLACEMENT 08/26/2023 IR CVC PORT PLACEMENT 08/26/2023 [facility] ANGIO MR HEAD ANGIO WO IV CONTRAST 10/16/2017 MR HEAD ANGIO WO IV CONTRAST [facility]Y [facility] MR NECK ANGIO WO IV CONTRAST 10/16/2017 MR NECK ANGIO WO IV CONTRAST [facility] US GUIDED PERCUTANEOUS PLACEMENT 06/08/2019 US GUIDED PERCUTANEOUS PLACEMENT [facility] INPATIENT LEGACY Social History She reports that [...] abdomen pelvis 07/05/2023, MRCP 11/09/2023 ACCESSION NUMBER(S): [id number] ORDERING CLINICIAN: KHURRAM STUART TECHNIQUE: CT of [...] Nancy Garrido. The study was interpreted at [facility] in [facility]. MACRO: none Signed by: Marie Fisher 11/10/2023 10:20 PM Dictation workstation: [id number] ED Medication Administration from 11/10/2023 1309 to 11/10/2023 2318 Date/Time Order Dose Route Action Action by 11/10/2023 1905 EST lactated Ringer's bolus 1,000 mL 1,000 mL intravenous New Bag Quinones, 11/10/20231911 EST HYDROmorphone (Dilaudid) injection 1 mg 1 mg intravenous Given Quinones, 11/10/20231911 EST ondansetron (Zofran) injection 4 mg 4 mg intravenous Given Quinones, 11/10/20232004 EST lactated Ringer's bolus 1,000 mL 0 mL intravenous Stopped Jayro Mckenzie 11/10/20232023 EST HYDROmorphone (Dilaudid) injection 1 mg [...] #Herpes simplex II -Continue Valacyclovir 500mg daily Nancy Benedict APRN-HAMLET [facility] Work Phone: 11-10-2023 History and physical note [...] History: Diagnosis Date Depression Factor V Leiden ([facility]) Pancreatitis Seizure ([facility]) Stroke ([facility]) Surgical History Past Surgical History: Procedure Laterality Date HYSTERECTOMY IR CVC PORT PLACEMENT 08/26/2023 IR CVC PORT PLACEMENT 08/26/2023 [facility] ANGIO MR HEAD ANGIO WO IV CONTRAST 10/16/2017 MR HEAD ANGIO WO IV CONTRAST [facility] EMERGENCY [facility]GACY MR NECK ANGIO WO IV CONTRAST 10/16/2017 MR NECK ANGIO WO IV CONTRAST [facility] US GUIDED PERCUTANEOUS PLACEMENT 06/08/2019 US GUIDED PERCUTANEOUS PLACEMENT [facility] INPATIENT LEGACY Social History She reports that [...] abdomen pelvis 07/05/2023, MRCP 11/09/2023 ACCESSION NUMBER(S): [id number] ORDERING CLINICIAN: KHURRAM STUART TECHNIQUE: CT of [...] Nancy Garrido. The study was interpreted at [facility] in [facility]. MACRO: none Signed by: Marie Fisher 11/10/2023 10:20 PM Dictation workstation: [id number] ED Medication Administration from 11/10/2023 1309 to 11/10/2023 2318 Date/Time Order Dose Route Action Action by 11/10/2023 1905 EST lactated Ringer's bolus 1,000 mL 1,000 mL intravenous New Bag Quinones, 11/10/2023 191 EST HYDROmorphone (Dilaudid) injection 1 [...] injection 2 mg 2 mg intravenous Given Jonah S Assessment/Plan Principal Problem: Pseudocyst of pancreas [...] #Herpes simplex II -Continue Valacyclovir 500mg daily Nancy Benedict APRN-HAMLET documented in this encounter [facility] Work Phone: 11-10-2023 Emergency department Note Pts GI sent her in because she has cysts on her pancreas. Pt states the pain started around 0600 documented in this encounter [facility] Work Phone: 11-10-2023 Emergency department Triage note Pts GI sent her in because she has cysts on her pancreas. Pt states the pain started around 0600 [facility] Work Phone: 10-27-2023 History of Present illness [...] as stated. [facility] [place] MACRO: None Electronically signed by: CARISSA BUI 05/12/23 23:23 I have personally reviewed the OARRS report for this patient. This report is scanned into the electronic medical record. I have considered the risks of abuse, dependence, addiction and diversion. 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 documented in this encounter [facility] Work Phone: 10-18-2023 Miscellaneous Notes Interventional Radiology Brief Postprocedure Note Attending: Flori Heel Compressor: None Diagnosis: requires durable IV access Description [...] been discussed with the patient and/or their internet sales representative. All questions answered and they agree to proceed. Grzegorz Brady DO, PGY-2 Diagnostic Radiology [facility] documented in this encounter [facility] Work Phone: 10-18-2023 Note Formatting of this n ote is different from the original. Interventional Radiology Brief Postprocedure Note Attending: Flori Heel Compressor: None Diagnosis: requires durable IV access Description [...] or complication and is in stable condition. [facility] Work Phone: 10-18-2023 Note Formatting of this [...] been discussed with the patient and/or their internet sales representative. All questions answered and they agree to proceed. Grzegorz Brady DO, PGY-2 Diagnostic Radiology [facility] Work Phone: 10-18-2023 Note Formatting of this n ote is different from the original. Interventional Radiology Brief Postprocedure Note Attending: Flori Heel Compressor: None Diagnosis: requires durable IV access Description [...] or complication and is in stable condition. [facility] Work Phone: 10-18-2023 Note Formatting of this [...] been discussed with the patient and/or their internet sales representative. All questions answered and they agree to proceed. Grzegorz Brady DO, PGY-2 Diagnostic Radiology [facility] Work Phone: 10-17-2023 Hospital Discharge instructions Patient [...] face Sudden trouble with speech or vision 9211-3836 [employer] [address] [place] [address]. All rights reserved. This information is not [...] foods again, start with small amounts of cgav-oa-tqieuy, low-fat foods. These include apple sauce, toast, [...] increase stomach acid. Don't use aspirin or uqou-rqa-kvorspm pain and fever medicines, if possible. This includes nonsteroidal anti-inflammatory drugs (NSAIDs). Lose excess weight. Finish eating at least 2 hours before you go to bed or lie down. Raise the head of your bed. 3320-7786 [employer] [address] [place] [address]. All rights reserved. This information is not intended as a substitute for professional medical care. Always follow your healthcare professional's instructions. Follow Up Care 10/17/2023 15:46:50 With:CJ RIVERA Address: [address] [place] [address]- [phone] When:2-4 days [place] 10-17-2023 Note Discharge Instructions Thank you for allowing [facility] to assist you with your healthcare needs. [...] When Within 2-4 days Where: [place] [address]- [phone] Allergies penicillin (Rash) Neurontin (Vomiting) sulfa drug [...] oral capsule) 1 cap by mouth Every Kenneth Duration: 90 Days Unchanged clonazePAM (clonazePAM 0.5 [...] face Sudden trouble with speech or vision [phone] [employer] [address] [place] [address]. All rights reserved. This information is not [...] foods again, start with small amounts of hjkh-pg-pzhdoo, low-fat foods. These include apple sauce, toast, [...] increase stomach acid. Don't use aspirin or iuih-xrf-mlgpxyr pain and fever medicines, if possible. This includes nonsteroidal anti-inflammatory drugs (NSAIDs). Lose excess weight. Finish eating at least 2 hours before you go to bed or lie down. Raise the head of your bed. [phone] [employer] [address] [place] [address]. All rights reserved. This information is not intended as a substitute for professional medical care. Always follow your healthcare professional's instructions. Additional Information VACCINATE! IT SAVES LIVES! Members of the community who have not yet received the COVID-19 vaccine and would like to receive it can visit one of [facility] vaccine clinics. There are many vaccine clinic locations within the [facility]. For locations and available times, please visit [email or web address] . It is important to note that some COVID mobile vaccine clinics are held outdoors and may be canceled in rainy or stormy conditions. To learn more about pediatric vaccinations (ages 5-11), we invite you to visit the [facility] webpage. [email or web address]/pages [email or web address] [email or web address].html To learn more about the COVID-19 vaccine, we invite you to visit the CDC website for a list of frequently asked questions. https://www.cdc.gov/coronavirus/2019 -ncov/vaccines/faq.html [facility] Patient Portal Access Instructions: Stay connected with your healthcare team and access your personal medical information anytime with the [facility] Patient Portal. If you would like a full copy of your medical records please contact the [facility] Medical Records Department Tuesday through Tuesday between 8a.m. and 4:30p.m. Please follow the directions below to access the portal: 1.Access the email account you provided upon registration to the [facility].2.Look for an invitation email from [facility].3.Open the email and access the invitation link: Accept Invitation to [facility]4.Fill in the required azul to create your account. Sign into www.Handmark with your username and password that you [...] you will allow to register on the [facility] Patient Portal for access to your information. You can also access the [facility] Patient Portal on the [employer]. Simply click on Health Records under Health Data and then click on the [employer] logo. HOW TO SAFELY DISPOSE OF PRESCRIPTION [...] Call your local pharmacy or go to [email or web address] to find one close to you.3.Make use of household items: Use cat litter or old coffee grounds to dispose medications if other options are not available. Mix your drugs with these household products, seal them in an airtight container and throw it into the garbage. Call [facility]: [phone] to be sure your drugs can be [...] aware that I should contact my doctor. Patient/Franchise Manager Signature: ___ Date/Time: Relationship to Patient: _ Witness Name/Signature: Date/Time: [place] 08-26-2023 Hospital Discharge instructions Mesfin Gonzalez RN [...] for your protection and safety. [facility] to [facility] sheet for further discharge instructions. For questions related to your procedure: Please call [phone] between the hours of 7:00am-5:00pm Tuesday through Tuesday. Please call [phone] after 5:00pm and on weekends and holidays. In the event of an emergency call 911 or go to your nearest emergency room. documented in this encounter [facility] Work Phone: 08-19-2023 Nurse Note Doctor cancel appt due to patient not prepped for procedure. All not ified doctor will be in to see patient prior to her leaving. documented in this encounter [facility] Work Phone: 08-11-2023 Note . MICRO - [...] Locations *1: This test was performed at: [facility], [address] [place] [address], [address] , [facility] 08-03-2023 History of Present illness Narrative Gastroenterology Clinic Consult Note Reason For Consult pancreatitis History Of Present Illness Dorothea Rutledge is a 47 y.o. female with a past medical history of factor V Leiden on xarelto, seizures, anxiety and depression and recurrent pancreatitis here for follow-up after a recent hospitalization. Patient was transferred from [facility] in March for worsening symptoms of [...] and notes she was recently admitted to [facility] with a flare of pancreatitis. She [...] medical history of Depression, Factor V Leiden (CMS/HCC), Pancreatitis, Seizure ([facility]), and Stroke ([facility]). Surgical History She has a past surgical [...] 3 times a day., Disp: , Rfl: qjzmprhega-jiqqiwytzcchz-nvxo 50-325-40 mg tablet, Dose = 1 tab(s), Oral, q4h, PRN as needed, in absence of pcp, # 180 tab(s), 0 Refill(s), Pharmacy: [facility], 160, cm, 11/12/22 21:20:00 EST, Height, kg, 11/12/22 21:20:00 EST, Dosing Weight, Disp: , Rfl: cholecalciferol (Vitamin D-3) 1,250 mcg (50,000 unit) capsule, Dose : 1,250 mcg = 1 cap(s), Oral, Tuesday, # 13 cap(s), 3 Refill(s), Pharmacy: [facility], 160, cm, 01/24/23 14:30:00 [...] mouth once daily., Disp: , Rfl: HYDROcodone-acetaminophen ([place]) 5-325 mg tablet, Take 1 tablet by [...] hours if needed., Disp: , Rfl: pancrelipase, Mwr-Uvuw-Kjbe, (Creon) 12,000-38,000 -60,000 unit capsule, TAKE 3 CAPSULES BY MOUTH THREE TIMES A DAY WITH MEALS, Disp: 270 capsule, Rfl: 0 pancrelipase, Imb-Irgl-Drpz, (Creon) 12,000-38,000 -60,000 unit capsule, TAKE 3 CAPSULES BY MOUTH THREE TIMES A DAY WITH MEALS, Disp: 270 capsule, Rfl: 0 pancrelipase, Sfw-Czsl-Lncs, (Creon) 12,000-38,000 -60,000 unit capsule, TAKE 3 [...] 06/15/2023. US renal bilateral 05/14/2023. ACCESSION NUMBER(S): [id number] ORDERING CLINICIAN: SARAH HO TECHNIQUE: CT of [...] 5. I will reach out to her final touch up painter in regards to overall plan for her. I will contact the patient at that point in regards to other interventions. 6. Office follow-up in 3 months. I spent 60 minutes in the professional and overall care of this patient. Colton Hicks MD documented in this encounter [facility] Work Phone: 08-03-2023 Instructions Colton Hicks MD [...] and notes she was recently admitted to [facility] with pancreatitis. I do not have these records to review. documented in this encounter [facility] Work Phone: 06-29-2023 Miscellaneous Notes The following [...] Refusal: A Refill not appropriate Alaina Tomlin APRN.CNP Prescription Refill: Requested by: patient Please E-Scribe Caller Contact Number: Pharmacy Name: [facility] Number: [phone] Generic/ brand: Generic 30 or 90 day supply requested: 30 Last appointment: 11/20/21 Next Appointment: 07/08/[address] Aldrich documented in this encounter [facility] 06-17-2023 Note Clinical Event: Clinical Event [...] 17-Jun-2023 18:17 by Sapna Hernandez ( (Fellow)) [facility] 06-17-2023 Note Clinical Event: Clinical Event Note: [...] Last Updated: 17-Jun-2023 11:51 by Adelina Thompson () [facility] 06-16-2023 Hospital course Narrative Send Summary: Discharge Summary Providers: Provider Role Provider Name Referring Correct Info, Needed Attending Chastity León Primary Cj Rivera Consulting Gastroenterology Consult Team Note Recipients: Correct Info, Needed, Cj Ratliff, [facility] - [phone] [] Discharge: Summary: Admission Date: .14-Jun-2023 14:23:00 [...] Alert and oriented x 3. Hospital Course: DOROTHEA RUTLEDGE is a 47 year old [...] she was evaluated for similar complaints at [facility] on 05/07/2023, where she reported an allergy to Morphine, as well as a visit to [facility] on 04/29/2023. She reported being recently admitted at [facility] (05/07-05/09) for drug induced psychosis (PCP) and previously for methamphetamine, but denied any recent drug use. Most recently, she visited [facility] on 05/19, 05/23, and 06/03, with her being informed the ED was not appropriate for pain management according to the ED note available in [facility]. She was also evaluated at pain management [...] at 7 different pharmacies. On exam in [facility] RM 342, patient endorsed only abdominal pain [...] Gastroenterology clinic Scheduled Date/Time: 06-Jul-2023 09:40 Location: [facility] Follow-Up Appointment 02: Physician/Dept/Service: Pain management clinic Call to Schedule in: 2 weeks Scheduled Date/Time: 05-Jul-2023 13:30 Location: [facility]. Discharge Medications: Home Medication cloNIDine 0.2 mg [...] by Chastity León) documented in this encounter [facility] Work Phone: 06-16-2023 Note Send Summary: Discharge Summary Providers: Provider RoleProvider Name ReferringCorrect Info, Needed Chastity Benitez PrimaryLorCj agosto ConsultingGastroenterology Consult Team Note Recipients: Correct Info, NeededMD Nicole Lindsey C, LOCOMOTIVE INSPECTOR-RAIL ASSEMBLER - [phone] [] Discharge: Summary: Admission Date: .14-Jun-2023 14:23:00 Discharge Date: 16-Jun-2023 Attending Physician at Discharge: Chastity León Admission Reason: Abdominal pain Final Discharge Diagnoses: Chronic Pancreatitis Chronic abdominal pain Procedures: none Condition at Discharge: Satisfactory Disposition at Discharge: .Home Vital Signs: T PRBPMAPSpO2 [id number]% Date/Time06/16 16: 16: 16: 16: 16: 16:18 Range(36C - 36.5C ) (71 - 92 ) (16 - 18 ) (113 - 141 )/ (68 - 89 ) (84 - 103 ) (93% - 96% ) Date: Weight/Scale Type:Height: 15-Jun-2023 04:2196 kg / nrn904.9 cm Physical Exam: on the day of discharge patients vitals were stable. BP 132/89, CVS S1, S2, no murmurs, Lungs clear, Abdomen soft, minimal tenderness upper abdomen, no rigidity, no guarding, no ankle edema. Alert and oriented x 3. Hospital Course: DOROTHEA RUTLEDGE is a 47 year old [...] she was evaluated for similar complaints at [facility] on 05/07/2023, where she reported an allergy to Morphine, as well as a visit to [facility] on 04/29/2023. She reported being recently admitted at [facility] (05/07-05/09) for drug induced psychosis (PCP) and previously for methamphetamine, but denied any recent drug use. Most recently, she visited [facility] on 05/19, 05/23, and 06/03, with her being informed the ED was not appropriate for pain management according to the ED note available in [facility]. She was also evaluated at pain management on 05/25, with no opiates ordered. 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 She endorses vaping, denies EtOH, endorses medical marijuana (Not confirmed by OARRS) OAARS was reviewed. Overdose score 610 (500 narcotic, 681 sedative). There were 71 entries for prescriptions from 21 providers, filled at 7 different pharmacies. On exam in [facility] RM [facility], patient endorsed only abdominal pain [...] weight bearing. Nutrition/Diet: (more content not included)... [facility] 06-15-2023 Note Clinical Note - Vin ngo v2: Education: Document TopicMedication Education MedicationMeds to Beds: Patient declines Meds to Beds service at discharge. Sources used to confirm home medication list: Patient interview - fair historian of medications/ Pharmacy - [facility]/ Chart review/ OARRS - lacosamide 100mg #270/90 filled 05/10 Medication reconciliation complete Please reach out via Panorama9 for questions, or if no response call [employer] or [employer] International[employer] Christina MilnerD, Transitions of Care Pharmacist, [facility] Is This Intervention [...] 15-Jun-2023 13:26 by Ann Marie Jimenez (PharmD) [facility] 06-15-2023 Note Assessment Subjectiv e/Objective: Note Type: Education Note Authored by: Registered Dietitian Tile Presser Pager Number: [phone] Nutrition Note: Consult received via nursing admit [...] TransDermal Every 24 Hours Notes from Pharmacy: [facility], 15-Jun-2023 Pantoprazole, Enteric Coated Tablet (PROTONIX) DOSE [...] order consisted of OJ/cantaloupe/breakfast sandwich and vanilla korean yogurt. Lunch- cantaloup (more content not included)... [facility] 06-15-2023 History and physical note History of [...] she was evaluated for similar complaints at [facility] on 05/07/2023, where she reported an allergy to Morphine, as well as a visit to [facility] on 04/29/2023. She reports being recently admitted at [facility] (05/07-05/09) for drug induced psychosis (PCP) and previously for methamphetamine, but denies any drug use and reports not understanding why these results were positive. Most recently, she visited [facility]) on 05/19, 05/23, and 06/03, with her being informed the ED was not appropriate for pain management according to the ED note available in [facility]EE. She was also evaluated at pain management on 05/25, with no opiates ordered. 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 On exam in CLE260, patient endorses only abdominal pain and bilateral [...] Nurse, Charge nurse Electronic Signatures: Nancy Benedict (LOCOMOTIVE INSPECTOR-RAIL ASSEMBLER) (Signed 15-Jun-2023 05:52) Authored: History of Present Illness, Comorbidities, Family History, Social History, Allergies, Medications Prior to Admission, Review of Systems, Objective, Assessment and Plan, Note Completion Last Updated: 15-Jun-2023 05:52 by Nancy Benedict (LOCOMOTIVE INSPECTOR-RAIL ASSEMBLER) References: 1. Data Referenced From Patient Profile - Adult v2 15-Jun-2023 04:21 [facility] Work Phone: 06-15-2023 History and physical note [...] she was evaluated for similar complaints at [facility] on 05/07/2023, where she reported an allergy to Morphine, as well as a visit to [facility] on 04/29/2023. She reports being recently admitted at [facility] (05/07-05/09) for drug induced psychosis (PCP) and previously for methamphetamine, but denies any drug use and reports not understanding why these results were positive. Most recently, she visited [facility] on 05/19, 05/23, and 06/03, with her being informed the ED was not appropriate for pain management according to the ED note available in [facility]. She was also evaluated at pain management [...] prescriptions listed in OARRS. On exam in [facility], patient endorses only abdominal pain and [...] Nurse, Charge nurse Electronic Signatures: Nancy Benedict (LOCOMOTIVE INSPECTOR-[facility]) (Signed 15-Jun-2023 05:52) Authored: History of Present Illness, Comorbidities, Family History, Social History, Allergies, Medications Prior to Admission, Review of Systems, Objective, Assessment and Plan, Note Completion Last Updated: 15-Jun-2023 05:52 by Nancy Benedict (LOCOMOTIVE INSPECTOR-[facility]) References: 1. Data Referenced From Patient Profile - Adult v2 15-Jun-2023 04:21 documented in this encounter [facility] Work Phone: 06-15-2023 Note History of Present [...] she was evaluated for similar complaints at [facility] on 05/07/2023, where she reported an allergy to Morphine, as well as a visit to [facility] on 04/29/2023. She reports being recently admitted at [facility] (05/07-05/09) for drug induced psychosis (PCP) and previously for methamphetamine, but denies any drug use and reports not understanding why these results were positive. Most recently, she visited [facility] on 05/19, 05/23, and 06/03, with her being informed the ED was not appropriate for pain management according to the ED note available in [facility]. She was also evaluated at pain management [...] prescriptions listed in OARRS. On exam in HSY408, patient endorses only abdominal pain and bilateral [...] mg oral tab (more content not included)... [facility] 06-03-2023 Hospital Discharge instructions Patient Education 06/03/2023 [...] blood in stool Seizure Loss of consciousness [phone] [employer] [address] [place] [address], [place] [address]. All rights reserved. This information is not intended as a substitute for professional medical care. Always follow your healthcare professional's instructions. Follow Up Care 06/03/2023 14:52:20 With:[facility] Address: When:2-4 days With:CJ RIVERA APRN-[facility] Address: [address] [place] [address] [phone] When:2-4 days With:Go to emergency room if symptoms worsen Address:Unknown When:2-4 days [place] 06-03-2023 Note Discharge Instructions Thank you for allowing [facility] to assist you with your healthcare needs. The following is important discharge information regarding your hospital visit. Diagnosis from Today's Visit Abdominal pain Necrotizing pancreatitis Pancreatitis What to Do Next Instructions from Your Care Team No qualifying data available. Post Acute Orders No qualifying data available. You Need to Schedule the Following Appointments Follow Up with [facility] When Within 2-4 days Where: Follow Up with CJ RIVERA When Within 2-4 days Where: [address] [place], [place] [phone] [phone] Follow Up with Go to emergency room [...] may report side effects to FDA at 1-397-YIU-5895. What other drugs will affect acetaminophen and [...] affect acetaminophen and oxycodone, including prescription and xqan-dix-cjsbyun medicines, vitamins, and herbal products. Not all [...] to ensure that the information provided by [employer] ('[employer]') is accurate, up-to-date, and complete, but no guarantee is made to that effect. Drug information contained herein may be time sensitive. [employer] information has been compiled for use by healthcare practitioners and consumers in the [place] and therefore [employer] does not warrant that uses outside of the [place] are appropriate, unless specifically indicated otherwise. [employer] drug information does not endorse drugs, diagnose patients or recommend therapy. [employer] drug information is an informational resource designed [...] effective or appropriate for any given patient. [employer] does not assume any responsibility for any aspect of healthcare administered with the aid of information [employer] provides. The information contained herein is not intended to cover all possible uses, directions, precautions, warnings, drug interactions, allergic reactions, or adverse effects. If you have questions about the drugs you are taking, check with your doctor, nurse or pharmacist. Copyright 6242-9449 [employer] Version: 22.. Revision Date: 04/21/2023. ondansetron (oral) (on BENJI [...] may report side effects to FDA at 8-870-ELV-2638. What other drugs will affect ondansetron? Ondansetron [...] interact with ondansetron. This includes prescription and lenv-eit-ilofffr medicines, vitamins, and herbal products. Give a [...] to ensure that the information provided by [employer] ('[employer]') is accurate, up-to-date, and complete, but no guarantee is made to that effect. Drug information contained herein may be time sensitive. [employer] information has been compiled for use by healthcare practitioners and consumers in the [place] and therefore [employer] does not warrant that uses outside of the [place] are appropriate, unless specifically indicated otherwise. [employer]s drug information does not endorse drugs, diagnose patients or recommend therapy. [employer] drug information is an informational resource designed [...] effective or appropriate for any given patient. [facility] does not assume any responsibility for any aspect of healthcare administered with the aid of information [facility] provides. The information contained herein is not intended to cover all possible uses, directions, precautions, warnings, drug interactions, allergic reactions, or adverse effects. If you have questions about the drugs you are taking, check with your doctor, nurse or pharmacist. Copyright 8216-9961 [employer] Version: 16.. Revision Date: 04/21/2023. Education Materials [...] blood in stool Seizure Loss of consciousness 4429-8475 [employer] [address] [place] [address]. All rights reserved. This information is not intended as a substitute for professional medical care. Always follow your healthcare professional's instructions. Additional Information VACCINATE! IT SAVES LIVES! Members of the community who have not yet received the COVID-19 vaccine and would like to receive it can visit one of [facility] vaccine clinics. There are many vaccine clinic locations within the [facility]. For locations and available times, please visit [email or web address] . It is important to note that some COVID mobile vaccine clinics are held outdoors and may be canceled in rainy or stormy conditions. To learn more about pediatric vaccinations (ages 5-11), we invite you to visit the [facility] webpage. https://www.[facility].org/pages /9409-Kadhs-Vuusnfahetd-Frequently-A sked-Questions.html To learn more about the COVID-19 vaccine, we invite you to visit the CDC website for a list of frequently asked questions. https://www.cdc.gov/coronavirus/2019 -ncov/vaccines/faq.html [facility] Patient Portal Access Instructions: Stay connected with your healthcare team and access your personal medical information anytime with the [facility] Patient Portal. If you would like a full copy of your medical records please contact the [facility] Medical Records Department Tuesday through Tuesday between 8a.m. and 4:30p.m. Please follow the directions below to access the portal: 1.Access the email account you provided upon registration to the [facility].2.Look for an invitation email from [facility].3.Open the email and access the invitation link: Accept Invitation to [employer]4.Fill in the required azul to create your [...] you will allow to register on the [facility] Patient Portal for access to your information. You can also access the [employer] Patient Portal on the [employer]. Simply click on Health Records under Health [...] Call your local pharmacy or go to http://[employer] Systems/5Y3Je9k to find one close to you.3.Make use of household items: Use cat litter or old coffee grounds to dispose medications if other options are not available. Mix your drugs with these household products, seal them in an airtight container and throw it into the garbage. Call [facility]: [phone] to be sure your drugs can be [...] aware that I should contact my doctor. Patient/Franchise Manager Signature: ___ Date/Time: Relationship to Patient: _ Witness Name/Signature: Date/Time: [place] 05-25-2023 History of Present illness Narrative OPIOIDOpioid [...] findingsas stated. This study was interpreted at [facility], [place], [place].MACRO:NoneElectronically signed by: CARISSA BUI 05/12/23 23:65Cqoecreayc21 years old with morbid obesity BMI 39 [...] free to contact me to clarify. [facility] Work Phone: 05-23-2023 Hospital Discharge instructions Patient [...] foods again, start with small amounts of lsmw-tz-bdstru, low-fat foods. These include apple sauce, toast, [...] increase stomach acid. Don't use aspirin or dxxt-qcj-zzchrin pain and fever medicines, if possible. This includes nonsteroidal anti-inflammatory drugs (NSAIDs). Lose excess weight. Finish eating at least 2 hours before you go to bed or lie down. Raise the head of your bed. 0394-4416 [employer] [address] [place] [address]. All rights reserved. This information is not intended as a substitute for professional medical care. Always follow your healthcare professional's instructions. Follow Up Care 05/23/2023 02:32:38 With:CJ RIVERA Address: [address] [place] [phone] When:2-4 days [place] 05-23-2023 Note Discharge Instructions Thank you for allowing [facility] to assist you with your healthcare needs. The following is important discharge information regarding your hospital visit. Diagnosis from Today's Visit Abdominal pain What to Do Next Instructions from Your Care Team No qualifying data available. Post Acute Orders No qualifying data available. You Need to Schedule the Following Appointments Follow Up with CJ RIVERA When Within 2-4 days Where: [place] [phone] Allergies penicillin (Rash) Neurontin (Vomiting) sulfa drug [...] foods again, start with small amounts of vkuc-lf-epuuxd, low-fat foods. These include apple sauce, toast, [...] increase stomach acid. Don't use aspirin or zdse-eno-favtqhe pain and fever medicines, if possible. This includes nonsteroidal anti-inflammatory drugs (NSAIDs). Lose excess weight. Finish eating at least 2 hours before you go to bed or lie down. Raise the head of your bed. 1113-6151 [employer] [address] [place] [address], [place] [address]. All rights reserved. This information is not intended as a substitute for professional medical care. Always follow your healthcare professional's instructions. Additional Information VACCINATE! IT SAVES LIVES! Members of the community who have not yet received the COVID-19 vaccine and would like to receive it can visit one of [facility] vaccine clinics. There are many vaccine clinic locations within the [facility]. For locations and available times, please visit [email or web address]/ . It is important to note that some COVID mobile vaccine clinics are held outdoors and may be canceled in rainy or stormy conditions. To learn more about pediatric vaccinations (ages 5-11), we invite you to visit the [facility] webpage. https://www.[facility].org/pages /5347-Ctlce-Jhvyftefzos-Frequently-A sked-Questions.html To learn more about the COVID-19 vaccine, we invite you to visit the CDC website for a list of frequently asked questions. https://www.cdc.gov/coronavirus/2019 -ncov/vaccines/faq.html [employer] Patient Portal Access Instructions: Stay connected with your healthcare team and access your personal medical information anytime with the [employer] Patient Portal. If you would like a full copy of your medical records please contact the [facility] Medical Records Department Tuesday through Tuesday between 8a.m. and 4:30p.m. Please follow the directions below to access the portal: 1.Access the email account you provided upon registration to the hospital.2.Look for an invitation email from [facility].3.Open the email and access the invitation link: Accept Invitation to [employer]4.Fill in the required azul to create your account. Sign into www.Handmark with your username and password that you [...] you will allow to register on the [facility] Patient Portal for access to your information. You can also access the [facility] Patient Portal on the [employer] leslie. Simply click on Health Records under Health Data and then click on the [employer] logo. HOW TO SAFELY DISPOSE OF PRESCRIPTION [...] Call your local pharmacy or go to http://bit.Outbox Systems/[email or web address] to find one close to you.3.Make use of household items: Use cat litter or old coffee grounds to dispose medications if other options are not available. Mix your drugs with these household products, seal them in an airtight container and throw it into the garbage. Call [facility]: [phone] to be sure your drugs can be [...] aware that I should contact my doctor. Patient/Franchise Manager Signature: ___ Date/Time: Relationship to Patient: _ Witness Name/Signature: Date/Time: [facility] Seanoz Chawla 05-23-2023 Note Discharge Instructions Thank you for [...] 2-4 days Where: [address] [facility] [place] [phone] Allergies penicillin (Rash) Neurontin (Vomiting) sulfa drug [...] foods again, start with small amounts of qetq-mf-jexdvd, low-fat foods. These include apple sauce, toast, [...] increase stomach acid. Don't use aspirin or yzqi-sbj-avljldz pain and fever medicines, if possible. This includes nonsteroidal anti-inflammatory drugs (NSAIDs). Lose excess weight. Finish eating at least 2 hours before you go to bed or lie down. Raise the head of your bed. 4903-3486 [employer] [address] [place] [address]. All rights reserved. This information is not intended as a substitute for professional medical care. Always follow your healthcare professional's instructions. Additional Information VACCINATE! IT SAVES LIVES! Members of the community who have not yet received the COVID-19 vaccine and would like to receive it can visit one of [facility] vaccine clinics. There are many vaccine clinic locations within the [facility]. For locations and available times, please visit [email or web address]/ . It is important to note that some COVID mobile vaccine clinics are held outdoors and may be canceled in rainy or stormy conditions. To learn more about pediatric vaccinations (ages 5-11), we invite you to visit the [facility] webpage. https://www.[facility].org/pages /0239-Wrxrf-Aozaoydagsu-Frequently-A sked-Questions.html To learn more about the COVID-19 vaccine, we invite you to visit the CDC website for a list of frequently asked questions. https://www.cdc.gov/coronavirus/2019 -ncov/vaccines/faq.html [facility] Patient Portal Access Instructions: Stay connected with your healthcare team and access your personal medical information anytime with the [employer] Patient Portal. If you would like a full copy of your medical records please contact the [facility] Medical Records Department Tuesday through Tuesday between 8a.m. and 4:30p.m. Please follow the directions below to access the portal: 1.Access the email account you provided upon registration to the [facility].2.Look for an invitation email from [facility].3.Open the email and access the invitation link: Accept Invitation to [facility]4.Fill in the required azul to create your account. Sign into www.Handmark with your username and password that you [...] you will allow to register on the [employer] Patient Portal for access to your information. You can also access the [employer] Patient Portal on the [employer] leslie. Simply click on Health Records under Health Data and then click on the [employer] logo. HOW TO SAFELY DISPOSE OF PRESCRIPTION [...] Call your local pharmacy or go to http://[employer]/4B0Kg8p to find one close to you.3.Make use of household items: Use cat litter or old coffee grounds to dispose medications if other options are not available. Mix your drugs with these household products, seal them in an airtight container and throw it into the garbage. Call [facility]: [phone] to be sure your drugs can be [...] aware that I should contact my doctor. Patient/Franchise Manager Signature: ___ Date/Time: Relationship to Patient: _ Witness Name/Signature: Date/Time: [place] 05-21-2023 Note . MICRO - Microbiology PROCEDURE: [...] Locations *1: This test was performed at: [facility], [address] [place] [address], [address] , [facility] 05-19-2023 Hospital Discharge instructions Patient Education 05/19/2023 [...] If needed, more treatment may be started. 2223-0287 [employer] [address] [place] [address], [place] [id number]. All rights reserved. This information is not [...] blood in stool Seizure Loss of consciousness 2014-[address] [employer] [address] [place] [address]. All rights reserved. This information is not intended as a substitute for professional medical care. Always follow your healthcare professional's instructions. Follow Up Care 05/19/2023 14:47:22 With:[facility] Address: When:2-4 days With:CJ RIVERA APRN-[employer] [address] [facility] [place] [phone] When:2-4 days With:Go to emergency room if symptoms worsen Address:Unknown When:2-4 days [place] 05-19-2023 Note Discharge Instructions Thank you for allowing [facility] to assist you with your healthcare needs. [...] Schedule the Following Appointments Follow Up with [facility] When Within 2-4 days Where: Follow Up with CJ RIVERA When Within 2-4 days Where: [address] [facility] [place] [address] [phone] Follow Up with Go to emergency room [...] When Why Instructions Last Dose New acetaminophen-hydrocodone ([place] 325- 5 mg oral tablet) 1 tab(s) [...] pharmacies. Medication Leaflets ondansetron (oral) (on BENJI se sean) What [...] may report side effects to FDA at 4-587-BYS-9187. What other drugs will affect ondansetron? Ondansetron [...] interact with ondansetron. This includes prescription and iozh-kit-tcaxmtk medicines, vitamins, and herbal products. Give a [...] to ensure that the information provided by [employer] ('[employer]') is accurate, up-to-date, and complete, but no guarantee is made to that effect. Drug information contained herein may be time sensitive. [employer] information has been compiled for use by healthcare practitioners and consumers in the [place] and therefore [employer] does not warrant that uses outside of the [place] are appropriate, unless specifically indicated otherwise. [employer] drug information does not endorse drugs, diagnose patients or recommend therapy. [employer] drug information is an informational resource designed [...] effective or appropriate for any given patient. [employer] does not assume any responsibility for any aspect of healthcare administered with the aid of information [facility] provides. The information contained herein is not intended to cover all possible uses, directions, precautions, warnings, drug interactions, allergic reactions, or adverse effects. If you have questions about the drugs you are taking, check with your doctor, nurse or pharmacist. Copyright 5519-3260 [facility] [employer] Version: 16.01. Revision Date: 04/21/2023. cephalexin (sef a CHARLES [...] may report side effects to FDA at 6-296-WNO-4169. What other drugs will affect cephalexin? Tell your doctor about all your other medicines, especially: metformin; or probenecid. This list is not complete. Other drugs may affect cephalexin, including prescription and koxm-arx-ixhaqnt medicines, vitamins, and herbal products. Not all [...] to ensure that the information provided by [employer] ('[employer]') is accurate, up-to-date, and complete, but no guarantee is made to that effect. Drug information contained herein may be time sensitive. [employer] information has been compiled for use by healthcare practitioners and consumers in the [place] and therefore [employer] does not warrant that uses outside of the [place] are appropriate, unless specifically indicated otherwise. [employer] drug information does not endorse drugs, diagnose patients or recommend therapy. [employer] drug information is an informational resource designed [...] effective or appropriate for any given patient. [employer] does not assume any responsibility for any aspect of healthcare administered with the aid of information [employer] provides. The information contained herein is not intended to cover all possible uses, directions, precautions, warnings, drug interactions, allergic reactions, or adverse effects. If you have questions about the drugs you are taking, check with your doctor, nurse or pharmacist. Copyright 9526-7911 [employer] Version: 08.19. Revision Date: 04/20/2023. acetaminophen and hydrocodone (a [...] may report side effects to FDA at 0-590-NCW-9392. What other drugs will affect acetaminophen and [...] affect acetaminophen and hydrocodone, including prescription and mjbz-ddq-eysjjbq medicines, vitamins, and herbal products. Not all [...] to ensure that the information provided by [employer] ('[employer]') is accurate, up-to-date, and complete, but no guarantee is made to that effect. Drug information contained herein may be time sensitive. [employer] information has been compiled for use by healthcare practitioners and consumers in the [place] and therefore [employer] does not warrant that uses outside of the [place] are appropriate, unless specifically indicated otherwise. [employer] drug information does not endorse drugs, diagnose patients or recommend therapy. [employer] drug information is an informational resource designed [...] effective or appropriate for any given patient. [employer] does not assume any responsibility for any aspect of healthcare administered with the aid of information [employer] provides. The information contained herein is not intended to cover all possible uses, directions, precautions, warnings, drug interactions, allergic reactions, or adverse effects. If you have questions about the drugs you are taking, check with your doctor, nurse or pharmacist. Copyright 8612-5809 [employer] Version: 19.. Revision Date: 05/09/2023. Education Materials [...] If needed, more treatment may be started. 0989-9569 [employer] [address] [place] [address], [place] [address]. All rights reserved. This information is not [...] blood in stool Seizure Loss of consciousness 5752-7153 [employer] [address] [place] [address], [place] [address]. All rights reserved. This information is not intended as a substitute for professional medical care. Always follow your healthcare professional's instructions. Additional Information VACCINATE! IT SAVES LIVES! Members of the community who have not yet received the COVID-19 vaccine and would like to receive it can visit one of [facility] vaccine clinics. There are many vaccine clinic locations within the [facility]. For locations and available times, please visit [email or web address] . It is important to note that some COVID mobile vaccine clinics are held outdoors and may be canceled in rainy or stormy conditions. To learn more about pediatric vaccinations (ages 5-11), we invite you to visit the [facility] webpage. https://www.[employer].org/pages /8483-Qmbsx-Lyrxkovhufq-Frequently-A sked-Questions.html To learn more about the COVID-19 vaccine, we invite you to visit the CDC website for a list of frequently asked questions. https://www.cdc.gov/coronavirus/2019 -ncov/vaccines/faq.html [facility] Patient Portal Access Instructions: Stay connected with your healthcare team and access your personal medical information anytime with the [employer] Patient Portal. If you would like a full copy of your medical records please contact the [facility] Medical Records Department Tuesday through Tuesday between 8a.m. and 4:30p.m. Please follow the directions below to access the portal: 1.Access the email account you provided upon registration to the hospital.2.Look for an invitation email from [facility].3.Open the email and access the invitation link: Accept Invitation to [facility]4.Fill in the required azul to create your account. Sign into www.Handmark with your username and password that you [...] you will allow to register on the [facility] Patient Portal for access to your information. You can also access the [facility] Patient Portal on the [employer]. Simply click on Health Records under Health Data and then click on the [employer] logo. HOW TO SAFELY DISPOSE OF PRESCRIPTION [...] Call your local pharmacy or go to http://[employer]Outbox Systems/[email or web address] to find one close to you.3.Make use of household items: Use cat litter or old coffee grounds to dispose medications if other options are not available. Mix your drugs with these household products, seal them in an airtight container and throw it into the garbage. Call [facility]: [phone] to be sure your drugs can be [...] reviewed and explained to me and IMATY DOROTHEA M understand my current condition and have read and u (more content not included)... [place] 05-10-2023 Miscellaneous Notes The following approved medication requests have been transmitted electronically. Requested Prescriptions Signed Prescriptions Disp Refills lacosamide (VIMPAT) 100 mg tab 270 tablet 1 Si tab in am and 2 tabs in pm Authorizing Provider: ALAINA TOMLIN APRN.HAMLET Prescription Refill: Requested by: patient Please E-Scribe Caller Contact Number: Pharmacy Name: [facility] Number: [id number] Generic/ brand: Generic 30 or 90 day supply requested: 90 Last appointment: 11/20/21 Next Appointment: 06/14/[address] Aldrich documented in this encounter [facility] 05-09-2023 Hospital Discharge instructions Patient Education [...] blood in stool Seizure Loss of consciousness 2352-4788 [employer] [address] [place] [address]. All rights reserved. This information is not intended as a substitute for professional medical care. Always follow your healthcare professional's instructions. Follow Up Care 05/09/2023 08:08:20 With:[facility] Address: When:2-4 days With:Go to emergency room if symptoms worsen Address:Unknown When:2-4 days [place] 05-09-2023 Note Discharge Instructions Thank you for allowing [facility] to assist you with your healthcare needs. The following is important discharge information regarding your hospital visit. Diagnosis from Today's Visit Medical screening exam Pancreatitis What to Do Next Instructions from Your Care Team Clear liquid diet. Advance as tolerated. No qualifying data available. Post Acute Orders No qualifying data available. You Need to Schedule the Following Appointments Follow Up with [facility] When Within 2-4 days Where: [...] may report side effects to FDA at 8-850-ASD-3588. What other drugs will affect acetaminophen and [...] affect acetaminophen and oxycodone, including prescription and yovr-zii-ihppevl medicines, vitamins, and herbal products. Not all [...] to ensure that the information provided by [employer]') is accurate, up-to-date, and complete, but no guarantee is made to that effect. Drug information contained herein may be time sensitive. [employer] information has been compiled for use by healthcare practitioners and consumers in the [place] and therefore [employer] does not warrant that uses outside of the [place] are appropriate, unless specifically indicated otherwise. [employer] drug information does not endorse drugs, diagnose patients or recommend therapy. [employer] drug information is an informational resource designed [...] effective or appropriate for any given patient. [employer] does not assume any responsibility for any aspect of healthcare administered with the aid of information [employer] provides. The information contained herein is not intended to cover all possible uses, directions, precautions, warnings, drug interactions, allergic reactions, or adverse effects. If you have questions about the drugs you are taking, check with your doctor, nurse or pharmacist. Copyright 5221-9425 [employer] Version: 22.. Revision Date: 04/21/2023. ondansetron (oral) (on BENJI [...] may report side effects to FDA at 1-649-YVK-7915. What other drugs will affect ondansetron? Ondansetron [...] interact with ondansetron. This includes prescription and fdql-kut-igaclgw medicines, vitamins, and herbal products. Give a [...] to ensure that the information provided by [employer]) is accurate, up-to-date, and complete, but no guarantee is made to that effect. Drug information contained herein may be time sensitive. [employer] information has been compiled for use by healthcare practitioners and consumers in the [place] and therefore [employer] does not warrant that uses outside of the [place] are appropriate, unless specifically indicated otherwise. [employer]s drug information does not endorse drugs, diagnose patients or recommend therapy. [employer] drug information is an informational resource designed [...] effective or appropriate for any given patient. [employer] does not assume any responsibility for any aspect of healthcare administered with the aid of information [employer] provides. The information contained herein is not intended to cover all possible uses, directions, precautions, warnings, drug interactions, allergic reactions, or adverse effects. If you have questions about the drugs you are taking, check with your doctor, nurse or pharmacist. Copyright 8854-8186 [employer] Version: 16.. Revision Date: 04/21/2023. Education Materials [...] blood in stool Seizure Loss of consciousness 2846-2592 [employer] [address] [place] [address], [place] [address]. All rights reserved. This information is not intended as a substitute for professional medical care. Always follow your healthcare professional's instructions. Additional Information VACCINATE! IT SAVES LIVES! Members of the community who have not yet received the COVID-19 vaccine and would like to receive it can visit one of [facility] vaccine clinics. There are many vaccine clinic locations within the [facility]. For locations and available times, please visit [email or web address] . It is important to note that some COVID mobile vaccine clinics are held outdoors and may be canceled in rainy or stormy conditions. To learn more about pediatric vaccinations (ages 5-11), we invite you to visit the [facility] webpage. https://www.[employer].org/pages /3371-Ugrde-Yukxzhlwuxt-Frequently-A sked-Questions.html To learn more about the COVID-19 vaccine, we invite you to visit the CDC website for a list of frequently asked questions. https://www.cdc.gov/coronavirus/2019 -ncov/vaccines/faq.html [facility] Patient Portal Access Instructions: Stay connected with your healthcare team and access your personal medical information anytime with the [employer] Patient Portal. If you would like a full copy of your medical records please contact the [facility] Medical Records Department Tuesday through Tuesday between 8a.m. and 4:30p.m. Please follow the directions below to access the portal: 1.Access the email account you provided upon registration to the hospital.2.Look for an invitation email from [facility].3.Open the email and access the invitation link: Accept Invitation to [facility]4.Fill in the required azul to create your account. Sign into www.Handmark with your username and password that you [...] you will allow to register on the [employer] Patient Portal for access to your information. You can also access the [facility] Patient Portal on the [employer] leslie. Simply click on Health Records under Health Data and then click on the [employer] logo. HOW TO SAFELY DISPOSE OF PRESCRIPTION [...] Call your local pharmacy or go to http://[employer]/4H2Rp8n to find one close to you.3.Make use of household items: Use cat litter or old coffee grounds to dispose medications if other options are not available. Mix your drugs with these household products, seal them in an airtight container and throw it into the garbage. Call [facility]: [phone] to be sure your drugs can be [...] aware that I should contact my doctor. Patient/Franchise Manager Signature: ___ Date/Time: Relationship to Patient: _ Witness Name/Signature: Date/Time: [place] 05-09-2023 Miscellaneous Notes The following approved medication [...] 30 days. Authorizing Provider: ALAINA TOMLIN APRN.CNP Prescription Refill: Requested by: patient Please E-Scribe Caller Contact Number: [phone] (home) Pharmacy Name: [facility] Number: [id number] Generic/ brand: generic 30 or 90 day supply requested: 90 Last appointment: 11/20/21 Next Appointment: 06/14/[address] aldrich documented in this encounter [facility] 04-30-2023 Emergency department Note Called [facility] to give Nurse to nurse report but was informed that the nurse already received report. Chart and records sent with bottom hoop driver Caron Saucedo RN 04/30/23202 [facility] 04-30-2023 Emergency department Note Called [facility] to give Nurse to nurse report but was informed that the nurse already received report. Chart and records sent with bottom hoop driver Caron Saucedo RN 04/30/23202 Pt arrived through [facility] ED with [facility]. This RN spoke with Gael VILLANUEVA coordinator at [facility] ED. Pt was en route to [facility] in [place] for psych admit. 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 [facility] dispatch advised to come to nearest [...] Pt has allergies to Penicillin, Neurontin, sulfa. [facility] was notifed of pt being brought to [facility] ED. Chayito Stated pt had left ED calm and cooperative. This RN called [facility] facility and spoke with Dianne VILLANUEVA. Bed is held for pt once cleared by [facility] ED. Will fax paperwork needed to [facility] prior to transport. Jennifer Hancock RN 04/29/23 2322 Jennifer Hancock RN 04/29/23 2333 Jennifer Hancock RN 04/29/23 2342 Jennifer Hancock RN 04/29/23 2348 Room cleared and made safe per protocol, protective services in ED for safety of patient and staff. Patient in gown already from transport. Belongings already bagged and brought in by transporter radiology, checked by [facility] protective services Caron Saucedo RN 04/29/23 6300 EMERGENCY DEPARTMENT ENCOUNTER Pt Name: Dorothea Rutledge Birthdate 1975 Date of evaluation: 04/29/2023 ED Provider: Lisbeth Davies DO CHIEF COMPLAINT Chief Complaint Patient presents with Psychiatric Evaluation Being transported from [facility] to [facility] for behavioral, anxiety and depression. En route patient became aggressive and confused so the snaker tractor driver came here for emergency assistance. Word [...] medically cleared and plan to admit to [facility]. In route from [facility] [...] DEPARTMENT COURSE and DIFFERENTIAL DIAGNOSIS/MDM: Vitals: Vitals: 04/29/23 2345 04/30/232 BP: (!) 122/92 Pulse: 110 Resp: 15 Temp: (!) 35.1 C (95.2 F) TempSrc: Temporal SpO2: 97% Diagnoses as of 04/30/235 Psychosis, unspecified psychosis type (HCC) Agitation Medications haloperidol lactate (Haldol) injection 5 mg (5 mg IntraMUSCular Given 04/29/23 2346) LORazepam (Ativan) injection 2 mg (2 mg IntraMUSCular Given 04/29/23 2347) droperidol (Inapsine) injection 5 mg (5 mg [...] cooperative. Patient is stable for transfer to [facility], discussed with [facility] today are willing to continue to accept patient in transfer. Patient was transferred in stable condition by EMS to [facility] for further management. CRITICAL CARE TIME Total [...] DO 04/30/23 0045 documented in this encounter [facility] 04-29-2023 Emergency department Note Pt arrived through [facility] ED with [facility]. This RN spoke with Gael RN coordinator at [facility] ED. Pt was en route to [facility] in [place] for psych admit. 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 [facility] dispatch advised to come to nearest [...] Pt has allergies to Penicillin, Neurontin, sulfa. [facility] was notifed of pt being brought to [facility] ED. Chayito Stated pt had left ED calm and cooperative. This RN called [facility] facility and spoke with Dianne VILLANUEVA. Bed is held for pt once cleared by [facility] ED. Will fax paperwork needed to [facility] prior to transport. Jennifer Hancock RN 04/29/23 2322 Jennifer Hancock RN 04/29/23 2333 Jennifer Hancock RN 04/29/23 2342 Jennifer Hancock RN 04/29/23 2348 [facility] 04-29-2023 Emergency department Note Room cleared and made safe per protocol, protective services in ED for safety of patient and staff. Patient in gown already from transport. Belongings already bagged and brought in by transporter radiology, checked by [facility] protective services Caron Saucedo RN 04/29/23 4072 [facility] 04-29-2023 Physician Emergency department Note EMERGENCY DEPARTMENT ENCOUNTER Pt Name: Dorothea Rutledge Birthdate 1975 Date of evaluation: 04/29/2023 ED Provider: Lisbeth Davies DO CHIEF COMPLAINT Chief Complaint Patient presents with Psychiatric Evaluation Being transported from [facility] to [facility] for behavioral, anxiety and depression. En route patient became aggressive and confused so the snaker tractor driver came here for emergency assistance. Word [...] medically cleared and plan to admit to [facility]. In route from [facility] [...] No SCREENINGS PHYSICAL EXAM ED Triage Vitals [04/29/235] Temp Heart Rate Resp BP (!) 35.1 [...] DEPARTMENT COURSE and DIFFERENTIAL DIAGNOSIS/MDM: Vitals: Vitals: 04/29/23 2345 04/30/2331 BP: (!) 122/92 Pulse: 110 Resp: 15 Temp: (!) 35.1 C (95.2 F) TempSrc: Temporal SpO2: 97% Diagnoses as of 04/30/235 Psychosis, unspecified psychosis type (HCC) Agitation Medications haloperidol lactate (Haldol) injection 5 mg (5 mg IntraMUSCular Given 8/11/23 2346) LORazepam (Ativan) injection 2 mg (2 mg IntraMUSCular Given 04/29/23 2347) droperidol (Inapsine) injection 5 mg (5 mg [...] cooperative. Patient is stable for transfer to [facility], discussed with generations today are willing to continue to accept patient in transfer. Patient was transferred in stable condition by EMS to [facility] for further management. CRITICAL CARE TIME Total [...] Medicine Provider Lisbeth Davies DO 04/30/23 0045 [facility] 04-29-2023 Nurse Progress note Patient stopped flatbed driver care at 2155. Patient care transferred to transport to [facility]. Patient transported to [facility]. Digitally Signed by Shantell Mulligan LPN on 04/29/2023 10:16 PM [place] 04-29-2023 Nurse Progress note patient ambulated out of room and attempted to leave ER. patient attempted to enter another patients room and was stopped by staff. patient redirected back into room and flatbed driver care started for safety at [address] Quiroz. Security at bedside for wanding procedure Digitally Signed by Shantell Mulligan LPN on 04/29/2023 08:13 PM [place] 04-29-2023 SARS-CoV-2 (COVID-19) RNA SANNA+probe Ql (Nph) Negative *NA* (04/29/23 12:42 PM) AO Auto Urine SS 04-29-2023 Note Sinus tachycardia Left atrial enlargement Left axis deviation Low voltage, precordial leads Borderline T abnormalities, inferior leads Borderline prolonged QT interval Electronic Signature: MD SAWYER, LETHA VASQUEZ 04/29/2023 15:00:27 [place] 04-28-2023 Hospital Discharge instructions Activity:activity as tolerated.Follow Up Appointment 1:Physician/Dept/Service: Cj Rivera CNP, PCPScheduled Date/Time: 03-May-2023 13:00Location: [address] [address]Phone Number: [phone]: Please bring insurance information and photo IDFollow Up Appointment 2:Physician/Dept/Service: Dr. Colton Hicks, GastroenterologyScheduled Date/Time: 18-May-2023 10:20Location: [facility], [id number] [place] [address], [place] [address] [address]Phone Number: [phone]: Please bring insurance information and photo ID [facility] 04-26-2023 Reason for referral (narrative) Reason for Referral: ED visit 04/26 p/w epigastric pain from acute/chronic pancreatitis exacerbation [facility] 04-25-2023 Note Discharge Instructions Thank you for [...] Schedule the Following Appointments Follow Up with [facility] When In 1 day Why: Go directly [...] blood in stool Seizure Loss of consciousness 1383-7524 [employer] [address] [place] [address], [place] [address]. All rights reserved. This information is not intended as a substitute for professional medical care. Always follow your healthcare professional's instructions. Additional Information VACCINATE! IT SAVES LIVES! Members of the community who have not yet received the COVID-19 vaccine and would like to receive it can visit one of [facility] vaccine clinics. There are many vaccine clinic locations within the [facility]. For locations and available times, please visit [email or web address] . It is important to note that some COVID mobile vaccine clinics are held outdoors and may be canceled in rainy or stormy conditions. To learn more about pediatric vaccinations (ages 5-11), we invite you to visit the [facility] webpage. https://www.[facility].org/pages /2594-Pxttp-Xzinqmotqew-Frequently-A sked-Questions.html To learn more about the COVID-19 vaccine, we invite you to visit the CDC website for a list of frequently asked questions. https://www.cdc.gov/coronavirus/2019 -ncov/vaccines/faq.html [facility] Patient Portal Access Instructions: Stay connected with your healthcare team and access your personal medical information anytime with the [employer] Patient Portal. If you would like a full copy of your medical records please contact the [facility] Medical Records Department Tuesday through Tuesday between 8a.m. and 4:30p.m. Please follow the directions below to access the portal: 1.Access the email account you provided upon registration to the [facility].2.Look for an invitation email from [facility].3.Open the email and access the invitation link: Accept Invitation to [facility]4.Fill in the required azul to create your account. Sign into www.Handmark with your username and password that you [...] you will allow to register on the [employer] Patient Portal for access to your information. You can also access the [employer] Patient Portal on the [employer] leslie. Simply click on Health Records under [...] Call your local pharmacy or go to http://bit.[employer]/9Q4Km2u to find one close to you.3.Make use of household items: Use cat litter or old coffee grounds to dispose medications if other options are not available. Mix your drugs with these household products, seal them in an airtight container and throw it into the garbage. Call [facility]: [phone] to be sure your drugs can be [...] aware that I should contact my doctor. Patient/Franchise Manager Signature: ___ Date/Time: Relationship to Patient: _ Witness Name/Signature: Date/Time: [place] 04-25-2023 Hospital Discharge instructions Patient Education 04/25/2023 [...] blood in stool Seizure Loss of consciousness 5185-5679 [employer] [address] [place] [address], [place] [address]. All rights reserved. This information is not intended as a substitute for professional medical care. Always follow your healthcare professional's instructions. Follow Up Care 04/25/2023 00:15:39 With:[facility] Address:Unknown When:Within 1 Day(s) Comments:Go directly to for further evaluation and treatment. [facility] Cammy 04-25-2023 Note ORIGINAL EXAMINATION: CT OF THE [...] Date: 04/25/2023 1:29:18 AM Ordering Provider: OPAL [facility] 04-03-2023 Discharge summary Date of Service [...] on buprenorphine/naloxone combination therapy. She presented to [facility] with abdominal pain and mild elevation in lipase and CT scan consistent with prior pancreatitis and was admitted. She continued to have significant pain and no real causal factor was found for pancreatitis. Throughout this workup she had an IgG4 level that came back marginally positive. Given her intractable symptoms and possible etiology of autoimmune, she was transferred to [facility] for GI evaluation. Patient continues [...] as much as possible. She was at [facility] for 3 days prior to coming to [facility] and did receive aggressive IV fluids, [...] Activity No qualifying data available. Discharge Disposition [facility] Information Provided To patient Digitally Signed by KAPIL SORIANO on 04/03/2023 01:42 PM [facility] 04-03-2023 Discharge summary Date of Service [...] on buprenorphine/naloxone combination therapy. She presented to [facility] with abdominal pain and mild elevation in lipase and CT scan consistent with prior pancreatitis and was admitted. She continued to have significant pain and no real causal factor was found for pancreatitis. Throughout this workup she had an IgG4 level that came back marginally positive. Given her intractable symptoms and possible etiology of autoimmune, she was transferred to [facility] for GI evaluation. Patient continues [...] as much as possible. She was at [facility] for 3 days prior to coming to [facility] and did receive aggressive IV fluids, [...] Activity No qualifying data available. Discharge Disposition [facility] Information Provided To patient Digitally Signed by KAPIL SORIANO on 04/03/2023 01:42 PM [facility] 04-02-2023 Nurse Progress note This nurse called [facility] and spoke with KAY White. Nurse to nurse report given regarding patient. Opportunity to answer questions given. Aware the transport scheduled to pickling machine operator Patient here at [facility] at approx 12 am. Digitally Signed by Snow Dinh RN on 04/02/2023 10:37 PM [facility] 04-02-2023 Note Discharge Instructions Thank you for allowing [facility] to assist you with your healthcare needs. The following is important discharge information regarding your hospital visit. Your Care Team CJ RIVERA Your Diagnosis Acute pancreatitis, Recurrent pancreatitis DVT - Deep vein thrombosis Abdominal pain Nausea Factor V Leiden Anxiety Partial seizure Stroke What to do next Scheduled Follow-Up Appointments Appointment Type When With Where Contact InformationPC OV TCM 30 04/18/2023 03:30 PM EDT CJ RIVERA [facility] [place] The Following Activity and Diet Have Been [...] to receive it can visit one of [facility] vaccine clinics. There are many vaccine clinic locations within the [facility]. For locations and available times, please visit [email or web address] It is important to note that some COVID mobile vaccine clinics are held outdoors and may be canceled in rainy or stormy conditions. To learn more about pediatric vaccinations (ages 5-11), we invite you to visit the [facility] webpage. [email or web address].org/pages /[email or web address]-Vxmzk-Pqhjssstrhe-Frequently-A sked-Questions.html To learn more about the COVID-19 vaccine, we invite you to visit the CDC website for a list of frequently asked questions.https://www.cdc.gov/edge virus/2019-ncov/vaccines/faq.html [facility] Patient Portal Access Instructions: Stay connected with your healthcare team and access your personal medical information anytime with the [facility] Patient Portal. Please follow the directions below to create your [facility] account: 1.Access the email account you provided upon registration to the hospital/physician office.2.Look for an invitation email from [facility].3.Open the email and access the invitation link: Accept Invitation to [employer].4.Fill in the required azul to create your account. To access your account, visit [email or web address]. Click the blue button labeled Access Patient [...] you will allow to register on the [facility] Apo[facility] Patient Portal for access to your information. You can also access the [facility] OneChart Patient Portal on the [facility] leslie. Simply click on Patient Portal and then log into your account. If you would like to receive a full copy of your medical records, please contact the [facility] Medical Records Department by calling [phone], Tuesday through Tuesday between 8 a.m. and [...] Call your local pharmacy or go to http://[employer]Outbox Systems/3U6Ak3f to find one close to you.3.Make use of household items: Use cat litter or old coffee grounds to dispose medications if other options are not available. Mix your drugs with these household products, seal them in an airtight container and throw it into the garbage. Call [facility]: [phone] to be sure your drugs can be [...] aware that I should contact my doctor. Patient/Franchise Manager Signature: ___ Date/Time: Relationship to Patient: _ Witness Name/Signature: Date/Time: [facility] 04-02-2023 Note Date of Service 04.02.23 [...] on buprenorphine/naloxone combination therapy. She presented to [facility] with abdominal pain and mild elevation in lipase and CT scan consistent with prior pancreatitis and was admitted. She continued to have significant pain and no real causal factor was found for pancreatitis. Throughout this workup she had an IgG4 level that came back marginally positive. Given her intractable symptoms and possible etiology of autoimmune, she was transferred [facility] evaluation. Patient continues [...] Charted Minimum Maximum Temp 36.8(APR 02:) 36.8(APR 02:) 36.6(APR 01 21:45) Heart Rate 70(APR 02 [...] pancreatic mass. Spoke with Dr. Ames from [facility] who accepted the patient however was told [...] by KAPIL SORIANO on 04/02/2023 04:22 PM [facility] 04-02-2023 Note Date of Service 04.02.23 [...] on buprenorphine/naloxone combination therapy. She presented to [facility] with abdominal pain and mild elevation in lipase and CT scan consistent with prior pancreatitis and was admitted. She continued to have significant pain and no real causal factor was found for pancreatitis. Throughout this workup she had an IgG4 level that came back marginally positive. Given her intractable symptoms and possible etiology of autoimmune, she was transferred to [facility] for GI evaluation. Patient continues [...] DBP 79(APR 02:) 68(APR 01 21:45) 79(APR 02 14:21) Physical [...] pancreatic mass. Spoke with Dr. Ames from [facility] who accepted the patient however was told [...] by KAPIL SORIANO on 04/02/2023 04:22 PM [facility] 04-02-2023 Gastroenterology Consult note Date of [...] Domestic Concerns: Denies. Living situation: Home/Independent. 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 Lives In: 1st floor [...] MATT LOVELACE MD on 04/02/2023 09:14 AM [facility] 04-02-2023 Note Chief Complaint Transition plan Transitional Action Points Abdominal pain with underlying recurrent pancreatitis Followed by GI team, plans for transferring to [facility] for EUS No noted hospitalizations within the [...] Patient is a 47-year-old female admitted to [facility] with pancreatitis. Prior to her hospital [...] Rate18(APR 01 21:45)16(APR 01 14:41)18(APR 01 13:46) BQL947(APR 02 00:00)117(APR 02 00:00)129(APR 01 18:43) DBP75(APR [...] Domestic Concerns: Denies. Living situation: Home/Independent. 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 Lives In: 1st floor [...] described in this documentation, as scribed by, Hugo Osorio LPN in my presence and it is both accurate and complete. This document is transcribed using voice recognition software and may contain typographical errors. 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 She was a binge drinker until 2011 and started having episodes of pancreatitis in 2012 and has been admitted multiple times for the same. She also has a history of narcotic dependence previously on buprenorphine/naloxone combination therapy. She presented to [facility] with abdominal pain and mild elevation in lipase and CT scan consistent with prior pancreatitis and was admitted. She continued to have significant pain and no real causal factor was found for pancreatitis. Throughout this workup she had an IgG4 level that came back marginally positive. Given her intractable symptoms and possible etiology of autoimmune, she was transferred to [facility] for [facility] evaluation. Here the [...] Tab, Oral, q4h, PRN, Pain, scale 4-6, 04/01/23 14:39:00 EDT albuterol-ipratropium, Start: 04/01/23 14:39:00 EDT, Dose = 3 mL, Soln, Inhalation, q2hRT, PRN, Wheezing, 04/01/23 14:39:00 EDT clonazePAM, Start: 04/01/23 16:23:00 EDT, Dose [...] Rate: 80 mL/hr, 04/01/23:39:00 EDT melatonin, Start: 04/01/23 14:39:00 EDT, Dose [...] to Inpatient Aqua K Machine w/Large pad (85839) Code Status Consult to Physician Diet Order [...] Domestic Concerns: Denies. Living situation: Home/Independent. 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 Lives In: 1st floor [...] VALLE MD FACP on 04/01/2023 07:13 PM [facility] 04-01-2023 Evaluation + Plan note Extrac [...] Tab, Oral, q4h, PRN, Pain, scale 4-6, 04/01/23 14:39:00 EDT albuterol-ipratropium, Start: 04/01/23 14:39:00 EDT, Dose = 3 mL, Soln, Inhalation, q2hRT, PRN, Wheezing, 04/01/23 14:39:00 EDT clonazePAM, Start: 04/01/23 16:23:00 EDT, Dose = 0.5 mg, = 1 tab(s), Oral, qDay, PRN, Anxiety, 04/01/23 16:23:00 EDT hydroCHLOROthiazide, Start: 04/01/23 16:23:00 EDT, Dose = 25 mg, = 1 tab(s), Oral, qDay, 04/01/23 16:23:00 EDT HYDROmorphone, Start: 04/01/23:39:00 EDT, Dose = 0.5 mg, = 0.5 mL, IV Push, q2h, PRN, Pain, scale 7-10, 0, 04/01/23:39:00 EDT lacosamide, Start: 04/01/23 22:00:00 EDT, Dose = 200 mg, = 1 tab(s), Oral, qPM, 04/01/23 16:23:00 EDT lacosamide, Start: 04/01/23 16:23:00 EDT, Dose = 100 mg, = 1 tab(s), Oral, qAM, 04/01/23 16:23:00 EDT Lactated Ringers Infusion 1,000 mL, Start: 04/01/23 14:39:00 EDT, Rate: 80 mL/hr, 04/01/2339:00 EDT melatonin, Start: 04/01/23 14:39:00 EDT, Dose [...] to Inpatient Aqua K Machine w/Large pad ([id number]) Code Status Consult to Physician Diet Order ROUTINE EMERGENCY TREATMENT - Full Code Future Appointments Appointment Date:04/18/2023 03:30:00 PM Scheduled Provider:CJ RIVERA Location:[facility] Appointment Type:PC OV TCM 30 Diagnostic Tests [...] Metabolic Panel 06/09/22 * N-Terminal proBNP 12/07/22 [facility] 07-12-2023 Note. MICRO - Microbiology PROCEDURE: [...] Locations *1: This test was performed at: [facility], [address] [place] [address], [id number] , [facility] ([place])03-11-2023 Hospital Discharge instructions Patient Education 03/11/2023 14:46:12 Acute Pancreatitis, Nbyv-oy-Ttzz Acute Pancreatitis Acute pancreatitis happens when the [...] if it caused your condition. Medicines Take gykf-mdz-egyozvl and prescription medicines only as told by your doctor. Ask your doctor if the medicine prescribed to you: ?Requires you to avoid driving or using heavy machinery. ?Can cause trouble pooping (constipation). You may need to take steps to prevent or treat trouble pooping: ?Take snkm-zzn-elbrchc or prescription medicines. ?Eat foods that are [...] 02/21/2009 Document Revised: 06/25/2019 Document Reviewed: 06/25/2019 O[employer]ud Patient Education 2020 [employer]pl[employer]. Follow Up Care 03/07/2023 16:24:16 With:CJ RIVERA LOCOMOTIVE INSPECTOR-RAIL ASSEMBLER Address: [address] [facility] [place] [address]- [phone] When:03/14/2023 13:00:00 Comments:This is your post-hospital follow-up appointment. [place] 06-23-2023 Note Discharge Instructions Thank you for allowing [facility] to assist you with your healthcare needs. The following is importantdischarge information regarding your hospital visit. Your Care Team [facility] Your Diagnosis Pancreatitis Abdominal pain [...] There are 2 GI speciality groups in [place]: [facility] - [phone] [facility] [place] - [phone] You could try one of these practices if you are unable to get into Dr. Mello sooner. Scheduled Follow-Up Appointments Appointment Type When With Where Contact InformationPC OV Hospital Follow-Up 03/14/2023 01:00 PM EDT CJ RIVERA [facility] 04/18/2023 03:30 PM EDT CJ RIVERA [place] Follow Up Appointments Follow Up with CJ RIVERA When 03/14/2023 01:00 PM EDT Why: This is your post-hospital follow-up appointment. Where: [address] [place] [address]- [phone] The Following Activity and Diet Have Been [...] pain Pancreatitis Duration: 3 Days Pickup at [facility] New ondansetron (ondansetron 4 mg oral tablet) 1 tab(s) by mouth Every 6 hours as needed for Nausea/Vomiting Pickup at [facility] Unchanged APAP/ butalbital/ caffeine (APAP/ [...] total of 225 mg/ day. Pharmacy Information [facility]: [address] [place], [place] [phone] Please take this list to your next [...] may report side effects to FDA at 6-463-IJA-1372. What other drugs will affect acetaminophen and [...] affect acetaminophen and oxycodone, including prescription and ewub-ubq-wewisez medicines, vitamins, and herbal products. Not all [...] to ensure that the information provided by [employer]. ('[employer]') is accurate, up-to-date, and complete, but no guarantee is made to that effect. Drug information contained herein may be time sensitive. [employer] information has been compiled for use by healthcare practitioners and consumers in the [place] and therefore [employer] does not warrant that uses outside of the [place] are appropriate, unless specifically indicated otherwise. [employer]s drug information does not endorse drugs, diagnose patients or recommend therapy. Fugoos drug information isan informational resource designed to [...] effective or appropriate for any given patient. [employer] does not assume any responsibility for any aspect of healthcare administered with the aid of information [employer] provides. The information contained herein is not intended to cover all possible uses, directions, precautions, warnings, drug interactions, allergic reactions, or adverse effects. If you have questions about the drugs you are taking, check with your doctor, nurse or pharmacist. Copyright 7689-0297 [employer]. Version: 20.03. Revision Date: 10/24/2020. ondansetron (oral) (on BENJI se estrada) Vera Gamez Zuplenz What is the most [...] may report side effects to FDA at 3-732-GBF-2776. What other drugs will affect ondansetron? Ondansetron [...] interact with ondansetron. This includes prescription and pkpm-hkm-gbcfltf medicines, vitamins, and herbal products. Give a [...] to ensure that the information provided by [employer] ('[employer]') is accurate, up-to-date, and complete, but no guarantee is made to that effect. Drug information contained herein may be time sensitive. MenuSpring[employer] information has been compiled for use by healthcare practitioners and consumers in the [place] and therefore [employer] does not warrant that uses outside of the [place] are appropriate, unless specifically indicated otherwise. [employer]s drug information does not endorse drugs, diagnose patients or recommend therapy. [employer]s drug information isan informational resource designed to [...] effective or appropriate for any given patient. [facility] does not assume any responsibility for any aspect of healthcare administered with the aid of information [facility] provides. The information contained herein is not intended to cover all possible uses, directions, precautions, warnings, drug interactions, allergic reactions, or adverse effects. If you have questions about the drugs you are taking, check with your doctor, nurse or pharmacist. Copyright 4793-2283 [employer] [facility] [employer]. Version: 13.. Revision Date: 07/09/2016. Education Materials [...] if it caused your condition. Medicines Take vcce-vjd-cbufktd and prescription medicines only as told by your doctor. Ask your doctor if the medicine prescribed to you: ? Requires you to avoid driving or using heavy machinery. ? Can cause trouble pooping (constipation). You may need to take steps to prevent or treat trouble pooping: ? Take mzcq-pqp-iapvpyn or prescription medicines. ? Eat foods that [...] 02/21/2009 Document Revised: 06/25/2019 Document Reviewed: 06/25/2019 Elsevier Patient Education 2020 [employer] Inc. Additional Information VACCINATE! IT SAVES LIVES! Members of the community who have not yet received the COVID-19 vaccine and would like to receive it can visit one of [facility] vaccine clinics. There are many vaccine clinic locations within the [facility]. For locations and available times, please visit [email or web address].[place].gov/. It is important to note that some COVID mobile vaccine clinics are held outdoors and may be canceled in rainy or stormy conditions. To learn more about pediatric vaccinations (ages 5-11), we invite you to visit the [facility] webpage. https://www.akCelletras.org/pages/1818-Rxvju-Ylrhhzsfkto-Wqnpdggkgr-Pywio-Zst stions.htmlTo learn more about the COVID-19 vaccine, we invite you to visit the CDC website for a list of frequently asked questions.https://www.cdc.gov/coronavirus/2019-ncov/vaccines/faq.html [facility] Patient Portal Access Instructions: Stay connected with your healthcare team and access your personal medical information anytime with the [facility] Patient Portal. Please follow the directions below to create your [facility] account: 1.Access the email account you provided upon registration to the hospital/physician office.2.Look for an invitation email from [facility].3.Open the email and access the invitation link: AcceptInvitation to [facility].4.Fill in the required azul to create your account. To access your account, visit [email or web address]. Click the blue button labeled Access Patient [...] who you will allowto register on the [facility] Patient Portal for access to your information. You can also access the [facility] Patient Portal on the [facility] leslie. Simply click on Patient Portal and then log into your account. If you would like to receive a full copy of your medical records, please contact the [facility] Medical Records Department by calling [phone], Tuesday through Tuesday between 8 a.m. and [...] Call your local pharmacy or go to [email or web address] to find one close to you.3.Make use of household items: Use cat litter or old coffee grounds to dispose medications if other options arenot available. Mix your drugs with these household products, seal them in an airtight container andthrow it into the garbage. Call [facility]: [phone] to be sure your drugs can be [...] COPY. Signatures Patient Education Materials Acute Pancreatitis, Tory-le-Qeka Medication Leaflets acetaminophen and oxycodone, ondansetron (oral) My discharge plan and instructions have been reviewed and explained to me and I,DEMI RUTLEDGEANDA M understand my current condition and have read and understand these discharge instructions. I have received a written copy of the plan/instructions. If I have questions, I am aware that I should contact my doctor. Patient/Franchise Manager Signature: Date/Time: Relationship to Patient: Witness Name/Signature: Date/Time: [place]06-22-2023 Note Date of Service 03/10/2023 Chief Complaint [...] tab(s), Oral, q6h sodium chloride nasal 0.65% [place] 2 spray(s), Nostril, each, q4h Lab [...] (s): 0.84 Imaging Results and Diagnostics MRI [facility] Result Date: March 08, 2023 Verified By: [...] by YANIRA BURCH on 03/10/2023 12:10 PM [facility] [id number] Note Date of Service 03/09/2023 Chief Complaint [...] tab(s), Oral, q6h sodium chloride nasal 0.65% [place] 2 spray(s), Nostril, each, q4h Lab [...] (s): 0.77 Imaging Results and Diagnostics MRI [facility] Result Date: March 08, 2023 Verified By: [...] by YANIRA BURCH on 03/09/2023 12:17 PM [place]06-20-2023 Note ORIGINAL EXAMINATION: [facility]03/08/2023 1:41 pm TECHNIQUE: [...] Date: 03/08/2023 7:52:37 PM Ordering Provider: SUJATHA [facility]06-20-2023 Evaluation + Plan noteExtracted from: Title:History and Physical Author:YANIRA BURCH APRN-HAMLET Date:03/08/23 1. Pancreatitis Acute, new onset since [...] Appointment Date:03/14/2023 01:00:00 PM Scheduled Provider:CJ RIVERA Location:[facility]ment Type:[facility] Hospital Follow-Up Appointment Date:04/18/2023 03:30:00 PM Scheduled Provider:CJ RIVERA Location:[facility] Appointment Type:PC OV Future Scheduled Tests Laboratory* Basic Metabolic Panel 12/07/22 * Magnesium Level 12/07/22 * Complete Blood Count 12/07/22 * Lipid Profile 06/09/22 * Vitamin D Level 06/09/22 * Complete Metabolic Panel 06/09/22 * N-Terminal proBNP 12/07/22 [place] 06-20-2023 Note ORIGINAL EXAMINATION: MRC03/08/2023 1:41 pm [...] Date: 03/08/2023 7:52:37 PM Ordering Provider: SUJATHA [facility]06-20-2023 Note Date of Service 03/08/2023 Chief Complaint abd pain with hx pancreatitis History of Present Illness Patient is a 47-year-old female, who follows with Cj Rivera CNP with a past medical history significant for chronic diastolic heart failure, factor V deficiency, depression, and migraines, presented to [facility] emergency department with the chief complaint [...] was discharged home. She was admitted to [facility] for pancreatitis about a month ago. [...] capsule 1,250 mcg = 1 cap(s), Oral, Kenneth clonazePAM 0.5 mg oral tablet 0.5 mg [...] Domestic Concerns: Denies. Living situation: Home/Independent. 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 Lives In: 1st floor [...] by YANIRA BURCH on 03/08/2023 12:14 PM [place]06-19-2023 Note ORIGINAL EXAMINATION: CT OF THE ABDOMEN [...] 03/07/2023 9:14:40 PM Ordering Provider: ROBERTO BIRMINGHAM [place]06-19-2023 Note ORIGINAL EXAMINATION: CT OF THE ABDOMEN [...] Sign Date: 03/07/2023 9:14:40 PM Ordering Provider: [facility]05-09-2023 Hospital Discharge instructions Patient Education 01/25/2023 14:40:57 [...] providers about all of the prescription medicines, rgkf-axk-denvtrz medicines, vitamins, and supplements you take. Certain [...] symptoms Desire to harm yourself or others [phone] [place] [address]. All rights reserved. This information is not intended as a substitute for professional medical care. Always follow yourhealthcare professional's instructions. 01/25/2023 14:40:43 Hyperglycemia (High Blood [...] if you keep having episodes of hyperglycemia. 0091-0943 [employer] [address] [place] [address], [place] [address]. All rights reserved. This information is not intended as a substitute for professional medical care. Always follow yourlima memorial hospitalcare professional's instructions. 01/25/2023 14:40:39 High Cholesterol [...] which may or may not require fasting. 4143-2356 [employer] [address] [place] [address], [place] [address]. All rights reserved. This information is not intended as a substitute for professional medical care. Always follow yourhealthcare professional's instructions. 01/25/2023 14:40:35 Abdominal Pain, Unknown [...] or water and you are getting dehydrated 8583-1860 [employer] [address] [place] [address]. All rights reserved. This information is not intended as a substitute for professional medical care. Always follow yourhealthcare professional's instructions. Follow Up Care 01/25/2023 10:20:31 With:CJ RIVERA Address: [address] [facility] [place] [phone] Business (1) When:2-4 days Comments:Schedule appointment as [...] TO BY YOUR PCP OR NEUROLOGIST With:your director peoplesoft Address:Unknown When:2-4 days Comments:Schedule appointment as soon as possibleReturn to ED if symptoms worsen [place] 05-09-2023 Miscellaneous Notes* Telephone Encounter - Alaina Tomlin APRN.HAMLET - 01/25/2023 3:58 PM EDT The following [...] per 30 days. Authorizing Provider: ALAINA TOMLIN APRN.HAMLET [facility] Note Discharge Instructions Thank you for [...] heidy Where: [address] [facility] [place] [address] [phone] Business (1) Follow Up with your neurologist When Within 2-4 days Why: Schedule appointment as soon as possible Return to ED if symptoms worsen YOU CANNOT DRIVE UNTIL CLEARED TO BY YOUR PCP OR NEUROLOGIST Follow Up with your director peoplesoft When Within 2-4 days Why: Schedule appointment [...] providers about all of the prescription medicines, gzvs-ojk-oqyahkj medicines, vitamins, and supplements you take. Certain [...] symptoms Desire to harm yourself or others [phone] [employer] [place] [address]. All rights reserved. This information is not [...] if you keep having episodes of hyperglycemia. 4418-4548 [employer] [address] [place] [address]. All rights reserved. This information is not [...] which may or may not require fasting. 2768-7382 [employer] [address] [place] [address], [place] [address]. All rights reserved. This information is not [...] or water and you are getting dehydrated 2262-1121 [employer] [address] [place] [address]. All rights reserved. This information is not intended as a substitute for professional medical care. Always follow yourhealthcare professional's instructions. Additional Information VACCINATE! IT SAVES LIVES! Members of the community who have not yet received the COVID-19 vaccine and would like to receive it can visit one of [facility] vaccine clinics. There are many vaccine clinic locations within the [facility]. For locations and available times, please visit www.[email or web address].[place].gov/. It is important to note that some COVID mobile vaccine clinics are held outdoors and may be canceled in rainy or stormy conditions. To learn more about pediatric vaccinations (ages 5-11), we invite you to visit the [facility] webpage. https://www.[facility].org/pages/1718-Xhljs-Xbhbuobthfa-Tafhkqyekr-Acggt-Nkt stions.htmlTo learn more about the COVID-19 vaccine, we invite you to visit the CDC website for a list of frequently asked questions. https://www.cdc.gov/coronavirus/2019-ncov/vaccines/faq.html [facility] Patient Portal Access Instructions: Stay connected with your healthcare team and access your personal medical information anytime with the [employer] Patient Portal. If you would like a full copy of your medical records please contact the [facility] Medical Records Department Tuesday through Tuesday between 8a.m. and 4:30p.m. Please follow the directions below to access the portal: 1.Access the email account you provided upon registration to the [facility].2.Look for an invitation email from [facility].3.Open the email and access the invitation link: Accept Invitation to [facility]4.Fill in the required azul to create your account. Sign into www.[email or web address] Signage with your username and password that you [...] you will allow to register on the [facility] Patient Portal for access to your information. You can also access the [facility] Patient Portal on the [employer] leslie. Simply click on Health Records under [employer] and then click on the Sean logo. [...] Call your local pharmacy or go to http://[employer]Outbox Systems/9C9Zb9a to find one close to you.3.Make use of household items: Use cat litter or old coffee grounds to dispose medications if other options arenot available. Mix your drugs with these household products, seal them in an airtight container andthrow it into the garbage. Call [facility]: [phone] to be sure your drugs can be [...] aware that I should contact my doctor. Patient/Franchise Manager Signature: Date/Time: Relationship to Patient: Witness Name/Signature: Date/Time: [place]05-09-2023 Note ORIGINAL EXAMINATION: CT HEAD TECHNIQUE: Axial [...] Sign Date: 01/25/2023 2:09:03 PM Ordering Provider: LETHA CID [place]05-09-2023 Note ORIGINAL EXAMINATION: CT OF THE ABDOMEN [...] Sign Date: 01/25/2023 2:06:59 PM Ordering Provider: [facility]05-09-2023 Note ORIGINAL EXAMINATION: CTA OF THE HEAD [...] Sign Date: 01/25/2023 2:05:57 PM Ordering Provider: [facility]05-09-2023 Note ORIGINAL EXAMINATION: CTA OF THE HEAD [...] Sign Date: 01/25/2023 2:05:57 PM Ordering Provider: [facility]05-09-2023 Note ORIGINAL EXAMINATION: CT HEAD TECHNIQUE: [...] Sign Date: 01/25/2023 2:09:03 PM Ordering Provider: [facility]05-09-2023 Note ORIGINAL EXAMINATION: CT OF THE [...] Sign Date: 01/25/2023 2:06:59 PM Ordering Provider: [facility]03-21-2023 Evaluation + Plan note Future Scheduled Tests Laboratory* Basic Metabolic Panel 12/07/22 * Lipase Level 04/18/23 * Magnesium Level 12/07/22 * Complete Blood Count 12/07/22 * Lipid Profile 06/09/22 * Vitamin D Level 06/09/22 * Complete Metabolic Panel 04/18/23 * Complete Metabolic Panel 06/09/22 * N-Terminal proBNP 12/07/22 [place] 03-21-2023 Miscellaneous Notes* Telephone Encounter - Alaina [...] Provider: ALAINA TOMLIN APRN.CNP [facility] Note ORIGINAL EXAMINATION: ONE XRAY VIEW [...] Date: 12/06/2022 11:04:51 PM Ordering Provider: OPAL REYNOLDS [place]03-20-2023 Hospital Discharge instructions Patient Education 12/06/2022 20:55:00 [...] Swelling, pain or redness in one leg [phone] [employer] [address] [place] [address], [place] [address]. All rights reserved. This information is not intended as a substitute for professional medical care. Always follow yourhealthcare professional's instructions. Follow Up Care 12/06/2022 20:43:19 With:CHINEDU ABARCA MD Address: [address] [place] [address] [place] [address] [phone] When:2-4 days With:Go to emergency room if symptoms worsen Address:Unknown When:2-4 days With:CJ RIVERA Address: [address] [place] [address] [phone] When:2-4 days [place] 03-20-2023 Note Discharge Instructions Thank you for allowing [facility] to assist you with your healthcare needs. The following is importantdischarge information regarding your hospital visit. Diagnosis from Today's Visit Chest pain Increased heart rate What to Do Next Instructions from Your Care Team Follow-up with your primary care provider. Follow-up with your risk assessor. Return to the emergency department if you experience worsening symptoms or any other care concern. No qualifying data available. Post Acute Orders No qualifying data available. You Need to Schedule the Following Appointments Follow Up with CHINEDU ABARCA MD When Within 2-4 days Where: [address] [facility] [place] [address]- [phone] Follow Up with Go to emergency room if symptoms worsen When Within 2-4 days Follow Up with CJ RIVERA When Within 2-4 days Where: [address] [place] [address] [phone] Allergies penicillin (Rash) Neurontin (Vomiting) morphine (Cramping) sulfa drug Medications Please ask your primary doctor or pharmacist before taking any other medication not listed, including over the counter drugs, herbal medications, vitamins and or supplements as they may interact [facility] medications. What How Much When Why [...] Swelling, pain or redness in one leg [phone] [employer] [address] [place] [address], [place] [address]. All rights reserved. This information is not intended as a substitute for professional medical care. Always follow yourhealthcare professional's instructions. Additional Information VACCINATE! IT SAVES LIVES! Members of the community who have not yet received the COVID-19 vaccine and would like to receive it can visit one of [facility] vaccine clinics. There are many vaccine clinic locations within the State. For locations and available times, please visit www.gettheshot.coronavirus.[place].gov/. It is important to note that some COVID mobile vaccine clinics are held outdoors and may be canceled in rainy or stormy conditions. To learn more about pediatric vaccinations (ages 5-11), we invite you to visit the [facility] webpage. https://www.[facility].org/pages/0070-Ncljj-Qdkfqbdjjdj-Oiillcgjbv-Fltbz-Tuf stions.htmlTo learn more about the COVID-19 vaccine, we invite you to visit the CDC website for a list of frequently asked questions. https://www.cdc.gov/coronavirus/2019-ncov/vaccines/faq.html [facility] Patient Portal Access Instructions: Stay connected with your healthcare team and access your personal medical information anytime with the [employer] Patient Portal. If you would like a full copy of your medical records please contact the [facility] Medical Records Department Tuesday through Tuesday between 8a.m. and 4:30p.m. Please follow the directions below to access the portal: 1.Access the email account you provided upon registration to the hospital.2.Look for an invitation email from [facility].3.Open the email and access the invitation link: Accept Invitation to [facility]4.Fill in the required azul to create your account. Sign into www.Handmark with your username and password that you [...] you will allow to register on the [employer] Patient Portal for access to your information. You can also access the [employer] Patient Portal on the [employer] leslie. Simply click on Health Records under [employer] and then click on the Sean logo. [...] Call your local pharmacy or go to http://[employer]Outbox Systems/9Q5Dq9j to find one close to you.3.Make use of household items: Use cat litter or old coffee grounds to dispose medications if other options arenot available. Mix your drugs with these household products, seal them in an airtight container andthrow it into the garbage. Call [facility]: [phone] to be sure your drugs can be [...] aware that I should contact my doctor. Patient/Franchise Manager Signature: Date/Time: Relationship to Patient: Witness Name/Signature: Date/Time: [place]03-20-2023 Note ORIGINAL EXAMINATION: ONE XRAY VIEW OF [...] the resident's findings and interpretation. Interpreted by: Manihs Dee MD Preliminary Report By: Camilo Chang Electronically signed By Manish Dee MD Dictated Date: 12/06/2022 10:30:15 PM Prelim Date: 12/06/2022 10:30:49 PM Sign Date: 12/06/2022 11:04:51 PM Ordering Provider: OPAL [facility]02-25-2023 Hospital Discharge instructions Patient Education 11/13/2022 18:42:58 [...] following occur: Loss of consciousness Vomiting blood 9743-5191 [employer] [address] [place] [address]. All rights reserved. This information is not [...] foods again, start with small amounts of hndv-op-sbbaiv, low- fat foods. These include apple sauce, [...] increase stomach acid. Don't use aspirin or ndml-flm-yqljzri pain and fever medicines, if possible. This includes nonsteroidal anti-inflammatory drugs (NSAIDs). Lose excess weight. Finish eating at least 2 hours before you go to bed or lie down. Raise the head of your bed. [phone] [employer] [address] [place] [address]. All rights reserved. This information is not intended as a substitute for professional medical care. Always follow yourhealthcare professional's instructions. Follow Up Care 11/13/2022 14:52:43 With:Your GI doctor as soon as possible Address:Unknown When:2-4 days With:CJ RIVERA Address: [address] [place] [address] [phone] When:2-4 days [place] 02-25-2023 Emergency department Discharge summary Discharge Instructions Thank you for allowing [facility] to assist you with your healthcare needs. [...] Within 2-4 days Where: [address] [place] [address]- [phone] Allergies penicillin (Rash) Neurontin (Vomiting) morphine (Cramping) [...] following occur: Loss of consciousness Vomiting blood [phone] [employer] [address] [place] [address], [place] [id number]. All rights reserved. This information is not [...] foods again, start with small amounts of zypc-zk-lyvmyd, low- fat foods. These include apple sauce, [...] increase stomach acid. Don't use aspirin or ctwq-rwg-zczzixc pain and fever medicines, if possible. This includes nonsteroidal anti-inflammatory drugs (NSAIDs). Lose excess weight. Finish eating at least 2 hours before you go to bed or lie down. Raise the head of your bed. 8155-4180 [employer] [address] [place] [address], [place] [address]. All rights reserved. This information is not intended as a substitute for professional medical care. Always follow yourhealthcare professional's instructions. Additional Information VACCINATE! IT SAVES LIVES! Members of the community who have not yet received the COVID-19 vaccine and would like to receive it can visit one of [facility] vaccine clinics. There are many vaccine clinic locations within the [facility]. For locations and available times, please visit www.gettheshot.coronavirus.[place].gov/. It is important to note that some COVID mobile vaccine clinics are held outdoors and may be canceled in rainy or stormy conditions. To learn more about pediatric vaccinations (ages 5-11), we invite you to visit the [facility] webpage. https://www.[facility].org/pages/9291-Novmz-Ifaxgzudbgn-Rboykrcger-Qavcd-Cae stions.htmlTo learn more about the COVID-19 vaccine, we invite you to visit the CDC website for a list of frequently asked questions. https://www.cdc.gov/coronavirus/2019-ncov/vaccines/faq.html [facility] [facility] Patient Portal Access Instructions: Stay connected with your healthcare team and access your personal medical information anytime with the [employer] Patient Portal. If you would like a full copy of your medical records please contact the [facility] Medical Records Department Tuesday through Tuesday between 8a.m. and 4:30p.m. Please follow the directions below to access the portal: 1.Access the email account you provided upon registration to the hospital.2.Look for an invitation email from [facility].3.Open the email and access the invitation link: Accept Invitation to [facility]4.Fill in the required azul to create your account. Sign into www.Hand[employer] with your username and password that you [...] you will allow to register on the [employer] Patient Portal for access to your information. You can also access the [facility] [facility] Patient Portal on the [employer] leslie. Simply click on Health Records under [employer] and then click on the [employer] logo. HOW TO SAFELY DISPOSE OF PRESCRIPTION [...] Call your local pharmacy or go to http://[employer]Outbox Systems/6T2Bg2x to find one close to you.3.Make use of household items: Use cat litter or old coffee grounds to dispose medications if other options arenot available. Mix your drugs with these household products, seal them in an airtight container andthrow it into the garbage. Call [facility]: [phone] to be sure your drugs can be [...] aware that I should contact my doctor. Patient/Franchise Manager Signature: Date/Time: Relationship to Patient: Witness Name/Signature: Date/Time: [place]02-25-2023 Evaluation + Plan note Diagnostic Tests Pending * Urine Culture 11/13/22 Future Scheduled Tests Laboratory* Lipid Profile 06/09/22 * Vitamin D Level 06/09/22 * Complete Metabolic Panel 06/09/22 [place] 02-25-2023 Hospital Discharge instructions Patient Education 11/13/2022 [...] Swelling, pain or redness in one leg 1131-4732 [employer] [address] [place] [address]. All rights reserved. This information is not intended as a substitute for professional medical care. Always follow yourhealthcare professional's instructions. Follow Up Care 11/12/2022 21:10:18 With:CJ RIVERA Address: [place] [address]- [phone] Business (1) When:2-4 days [place] 02-25-2023 Note Discharge Instructions Thank you for allowing [facility] to assist you with your healthcare needs. The following is importantdischarge information regarding your hospital visit. Diagnosis from Today's Visit Chest pain Hypertension What to Do Next Instructions from Your Care Team No qualifying data available. Post Acute Orders No qualifying data available. You Need to Schedule the Following Appointments Follow Up with CJ RIVERA When Within 2-4 days Where: [place] [address]- [phone] Business (1) Allergies penicillin (Rash) Neurontin (Vomiting) [...] Swelling, pain or redness in one leg 9895-4157 [employer] [address] [place] [address], [place] [address]. All rights reserved. This information is not intended as a substitute for professional medical care. Always follow yourhealthcare professional's instructions. Additional Information VACCINATE! IT SAVES LIVES! Members of the community who have not yet received the COVID-19 vaccine and would like to receive it can visit one of [facility] vaccine clinics. There are many vaccine clinic locations within the [facility]. For locations and available times, please visit www.gettheshot.coronavirus.[place].gov/. It is important to note that some COVID mobile vaccine clinics are held outdoors and may be canceled in rainy or stormy conditions. To learn more about pediatric vaccinations (ages 5-11), we invite you to visit the [facility] webpage. https://www.[facility].org/pages/3107-Hemhg-Ocroyubitrp-Kgfyxfejan-Dybxu-Esd stions.htmlTo learn more about the COVID-19 vaccine, we invite you to visit the CDC website for a list of frequently asked questions. https://www.cdc.gov/coronavirus/2019-ncov/vaccines/faq.html [facility] Patient Portal Access Instructions: Stay connected with your healthcare team and access your personal medical information anytime with the [employer] Patient Portal. If you would like a full copy of your medical records please contact the [facility] Medical Records Department Tuesday through Tuesday between 8a.m. and 4:30p.m. Please follow the directions below to access the portal: 1.Access the email account you provided upon registration to the [facility].2.Look for an invitation email from [facility].3.Open the email and access the invitation link: Accept Invitation to [facility]4.Fill in the required azul to create your [...] you will allow to register on the [facility] Patient Portal for access to your information. You can also access the [facility] Patient Portal on the [employer] leslie. Simply click on Health Records under [employer] and then click on the [employer] logo. HOW TO SAFELY DISPOSE OF PRESCRIPTION [...] Call your local pharmacy or go to http://[employer]/6E0Ex7u to find one close to you.3.Make use of household items: Use cat litter or old coffee grounds to dispose medications if other options arenot available. Mix your drugs with these household products, seal them in an airtight container andthrow it into the garbage. Call [facility]: [phone] to be sure your drugs can be [...] aware that I should contact my doctor. Patient/Franchise Manager Signature: Date/Time: Relationship to Patient: Witness Name/Signature: Date/Time: [place]02-24-2023 Note ORIGINAL EXAMINATION: ONE XRAY VIEW OF [...] Sign Date: 11/12/2022 10:38:00 PM Ordering Provider: [facility]02-24-2023 Note ORIGINAL EXAMINATION: ONE XRAY VIEW [...] Date: 11/12/2022 10:38:00 PM Ordering Provider: COLTON [facility]02-20-2023 Miscellaneous Notes* Telephone Encounter - Sin Kirby [...] Provider: SIN KIRBY APRN.CNP [facility] Discharge instructions Patient Education 10/19/2022 [...] Black, tarry stool Involuntary weight loss Weakness 5804-3518 [employer] [address] [place] [address]. All rights reserved. This information is not intended as a substitute for professional medical care. Always follow yourhealthcare professional's instructions. Follow Up Care 10/19/2022 11:04:23 With:KAYE BARTON MD Address: [address] [facility] [place] [address]- [phone] When:2-4 days With:CJ RIVERA Address: [address] [place] [address]- [phone] When:2-4 days [facility] 01-31-2023 Emergency department Discharge summary Discharge Instructions Thank you for allowing [facility] to assist you with your healthcare needs. The following is importantdischarge information regarding your hospital visit. Diagnosis from Today's Visit Chest pain What to Do Next Instructions from Your Care Team No qualifying data available. Post Acute Orders No qualifying data available. You Need to Schedule the Following Appointments Follow Up with KAYE BARTON MD When Within 2-4 days Where: [address] [facility] [place] [address]- [phone] Follow Up with LORSON, CJ LOCOMOTIVE INSPECTOR-RAIL ASSEMBLER When Within 2-4 days Where: [address] [facility] [place] [address]- [phone] Allergies penicillin (Rash) Neurontin (Vomiting) morphine (Cramping) [...] Black, tarry stool Involuntary weight loss Weakness 4727-4464 [employer] [address] [place] [address]. All rights reserved. This information is not intended as a substitute for professional medical care. Always follow yourhealthcare professional's instructions. Additional Information VACCINATE! IT SAVES LIVES! Members of the community who have not yet received the COVID-19 vaccine and would like to receive it can visit one of [facility] vaccine clinics. There are many vaccine clinic locations within the [facility]. For locations and available times, please visit www.[email or web address].[place].org. It is important to note that some COVID mobile vaccine clinics are held outdoors and may be canceled in rainy orstormy conditions. To learn more about pediatric vaccinations (ages 5-11), we invite you to visit the [facility] webpage. https://www.[facility].org/pages/4332-Xkrhb-Spmrdjlmgvn-Egqwajtzya-Yyjma-Fem stions.htmlTo learn more about the COVID-19 vaccine, we invite you to visit the [employer] website for a list of frequently asked questions. https://[employer]/assets/Cztdcaeu-rvv-Kqjxlqbt/khxml-Zdpbezy-Dciycavoyn _Asked-Questions.pdf [facility] Patient Portal Access Instructions: Stay connected with your healthcare team and access your personal medical information anytime with the [employer] Patient Portal. If you would like a full copy of your medical records please contact the [facility] Medical Records Department Tuesday through Tuesday between 8a.m. and 4:30p.m. Please follow the directions below to access the portal: 1.Access the email account you provided upon registration to the [facility].2.Look for an invitation email from [facility].3.Open the email and access the invitation link: Accept Invitation to [facility]4.Fill in the required azul to create your account. Sign into www.[employer] with your username and password that you [...] you will allow to register on the [facility] Patient Portal for access to your information. You can also access the [facility] Patient Portal on the [employer]. Simply click on Health Records under [employer] and then click on the [employer] logo. HOW TO SAFELY DISPOSE OF PRESCRIPTION [...] Call your local pharmacy or go to http://[employer]/4S7Zb9t to find one close to you.3.Make use of household items: Use cat litter or old coffee grounds to dispose medications if other options arenot available. Mix your drugs with these household products, seal them in an airtight container andthrow it into the garbage. Call [facility]: [phone] to be sure your drugs can be [...] aware that I should contact my doctor. Patient/Franchise Manager Signature: Date/Time: Relationship to Patient: Witness Name/Signature: Date/Time[id number] Note ORIGINAL EXAMINATION: Supine and upright 2 [...] Sign Date: 10/19/2022 8:14:33 PM Ordering Provider: [facility]01-31-2023 Note ORIGINAL EXAMINATION: Supine and upright 2 [...] Sign Date: 10/19/2022 8:14:33 PM Ordering Provider: [facility]01-31-2023 Note ORIGINAL EXAMINATION: ONE XRAY VIEW OF [...] Sign Date: 10/19/2022 12:01:00 PM Ordering Provider: K[facility]01-31-2023 Note ORIGINAL EXAMINATION: ONE XRAY VIEW [...] Sign Date: 10/19/2022 12:01:00 PM Ordering Provider: [facility]01-30-2023 Hospital Discharge instructions Patient Education 10/18/2022 19:03:28 [...] foods again, start with small amounts of vqnf-ct-rsgjan, low- fat foods. These include apple sauce, [...] increase stomach acid. Don't use aspirin or ftzb-bmx-pswjwlc pain and fever medicines, if possible. This includes nonsteroidal anti-inflammatory drugs (NSAIDs). Lose excess weight. Finish eating at least 2 hours before you go to bed or lie down. Raise the head of your bed. 1162-8002 [employer] [address] [place] [address], [place] [address]. All rights reserved. This information is not intended as a substitute for professional medical care. Always follow yourhealthcare professional's instructions. Follow Up Care 10/18/2022 12:03:53 With:CJ RIVERA Address: [place] [address]- [phone] When:2-4 days [place] 01-30-2023 Emergency department Discharge summary Discharge Instructions Thank you for allowing [facility] to assist you with your healthcare needs. [...] When Within 2-4 days Where: [place] [address] [phone] Allergies penicillin (Rash) Neurontin (Vomiting) morphine (Cramping) [...] foods again, start with small amounts of vjgb-vf-bcornm, low- fat foods. These include apple sauce, [...] increase stomach acid. Don't use aspirin or rnhy-bvc-cmhsown pain and fever medicines, if possible. This includes nonsteroidal anti-inflammatory drugs (NSAIDs). Lose excess weight. Finish eating at least 2 hours before you go to bed or lie down. Raise the head of your bed. [phone] [employer] [address] [place] [address], [place] [address]. All rights reserved. This information is not intended as a substitute for professional medical care. Always follow yourhealthcare professional's instructions. Additional Information VACCINATE! IT SAVES LIVES! Members of the community who have not yet received the COVID-19 vaccine and would like to receive it can visit one of [facility] vaccine clinics. There are many vaccine clinic locations within the [facility]. For locations and available times, please visit www.[email or web address]. It is important to note that some COVID mobile vaccine clinics are held outdoors and may be canceled in rainy orstormy conditions. To learn more about pediatric vaccinations (ages 5-11), we invite you to visit the [facility] webpage. https://www.ITelagens.org/pages/6785-Oraww-Bwxluennasi-Kwzkiaiihj-Sykoi-Vzz stions.htmlTo learn more about the COVID-19 vaccine, we invite you to visit the [facility] website for a list of frequently asked questions. https://[email or web address]/assets/Tfuxioxo-fjb-Zpdepljh/hnjvl-Vrvxxwg-Nzkxggtxdx _Asked-Questions.pdf [facility] Patient Portal Access Instructions: Stay connected with your healthcare team and access your personal medical information anytime with the [facility] Patient Portal. If you would like a full copy of your medical records please contact the [facility] Medical Records Department Tuesday through Tuesday between 8a.m. and 4:30p.m. Please follow the directions below to access the portal: 1.Access the email account you provided upon registration to the [facility].2.Look for an invitation email from [facility].3.Open the email and access the invitation link: Accept Invitation to [facility]4.Fill in the required azul to create your account. Sign into www.Handmark with your username and password that you [...] you will allow to register on the [facility] Patient Portal for access to your information. You can also access the [facility] Patient Portal on the [employer] leslie. Simply click on Health Records under [employer] and then click on the [employer] logo. HOW TO SAFELY DISPOSE OF PRESCRIPTION [...] Call your local pharmacy or go to http://[employer]Outbox Systems/1C3Ng4w to find one close to you.3.Make use of household items: Use cat litter or old coffee grounds to dispose medications if other options arenot available. Mix your drugs with these household products, seal them in an airtight container andthrow it into the garbage. Call [facility]: [phone] to be sure your drugs can be [...] aware that I should contact my doctor. Patient/Franchise Manager Signature: Date/Time: Relationship to Patient: Witness Name/Signature: Date/Time: [place]01-30-2023 Emergency department Discharge summary Discharge Instructions Thank you for allowing [facility] to assist you with your healthcare needs. [...] 2-4 days Where: [address] [facility] [place] [address] [phone] Allergies penicillin (Rash) Neurontin (Vomiting) morphine (Cramping) [...] foods again, start with small amounts of dare-es-elicrl, low- fat foods. These include apple sauce, [...] increase stomach acid. Don't use aspirin or zzjr-bkf-uhnjuii pain and fever medicines, if possible. This includes nonsteroidal anti-inflammatory drugs (NSAIDs). Lose excess weight. Finish eating at least 2 hours before you go to bed or lie down. Raise the head of your bed. 7796-8158 [employer] [address] [place] [address]. All rights reserved. This information is not intended as a substitute for professional medical care. Always follow yourhealthcare professional's instructions. Additional Information VACCINATE! IT SAVES LIVES! Members of the community who have not yet received the COVID-19 vaccine and would like to receive it can visit one of [facility] vaccine clinics. There are many vaccine clinic locations within the [facility]. For locations and available times, please visit www.[email or web address]. It is important to note that some COVID mobile vaccine clinics are held outdoors and may be canceled in rainy orstormy conditions. To learn more about pediatric vaccinations (ages 5-11), we invite you to visit the [facility] webpage. https://www.[facility].org/pages/3556-Iishq-Udsrhydjztv-Fshtqypijl-Dzdqu-Bml stions.htmlTo learn more about the COVID-19 vaccine, we invite you to visit the [facility] website for a list of frequently asked questions. https://[place].org/assets/Dvtbqwjl-wxy-Itckisbo/jmmdp-Elwqkza-Lkhlqszsvj _Asked-Questions.pdf [facility] Patient Portal Access Instructions: Stay connected with your healthcare team and access your personal medical information anytime with the [facility] Patient Portal. If you would like a full copy of your medical records please contact the [facility] Medical Records Department Tuesday through Tuesday between 8a.m. and 4:30p.m. Please follow the directions below to access the portal: 1.Access the email account you provided upon registration to the [facility].2.Look for an invitation email from [facility].3.Open the email and access the invitation link: Accept Invitation to [facility]4.Fill in the required azul to create your [...] you will allow to register on the [facility] Patient Portal for access to your information. You can also access the [facility] Patient Portal on the [employer]. Simply click on Health Records under [employer] and then click on the Sean logo. [...] Call your local pharmacy or go to http://[employer]Outbox Systems/0S7Ws1u to find one close to you.3.Make use of household items: Use cat litter or old coffee grounds to dispose medications if other options arenot available. Mix your drugs with these household products, seal them in an airtight container andthrow it into the garbage. Call [facility]: [phone] to be sure your drugs can be [...] aware that I should contact my doctor. Patient/Franchise Manager Signature: Date/Time: Relationship to Patient: Witness Name/Signature: Date/Time: [place]01-30-2023 Note ORIGINAL EXAMINATION: CT OF THE ABDOMEN [...] Sign Date: 10/18/2022 6:53:21 PM Ordering Provider: [facility]01-30-2023 Note ORIGINAL EXAMINATION: CT OF [...] Sign Date: 10/18/2022 6:53:21 PM Ordering Provider: [facility]01-22-2023 Miscellaneous Notes* Telephone Encounter - Alaina Tomlin APRN.CNP - 10/10/2022 11:22 PM EST The following [...] Provider: ALAINA TOMLIN APRN.CNP [facility] Miscellaneous Notes* Telephone Encounter - Alaina Tomlin APRN.CNP - 10/10/2022 10:50 PM EST The following approved medication requests have been transmitted electronically. Requested Prescriptions Signed Prescriptions Disp Refills lacosamide (VIMPAT) 100 mg tab 270 tablet 1 Si tab in am and 2 tabs in pm Authorizing Provider: ALAINA TOMLIN APRN.CNP documented in this encounterOhio [facility]12-21-2022 Miscellaneous Notes* Telephone Encounter - Alaina [...] Provider: ALAINA TOMLIN APRN.CNP documented in this [facility]11-10-2022 Miscellaneous Notes* Telephone Encounter - Alaina [...] follow up with sleep medicine Alaina Tomlin APRN.CNP Call was made to Dorothea , no answer. Message was left requesting a return call. Fatimah Roman RN * Telephone Encounter - Alley Schulte - 07/28/2022 3:07 PM EST General call : Full name of person calling: Dorothea Rutledge Relationship to patient: self Phone # : [phone] (home) Reason for call: Patient has trouble falling asleep and staying asleep. Sometimes she will not be able to sleep for 3 days. The lack of sleep can cause agitation. She has tried Trazadone and Vistaril. Please advise. Patient of Dr. Aldrich documented in this encounterOhio [facility]11-08-2022 Hospital Discharge instructions Patient Education 07/27/2022 [...] or water and you are getting dehydrated [phone] [employer] [address] [place] [address], [place] [address]. All rights reserved. This information is not intended as a substitute for professional medical care. Always follow yourhealthcare professional's instructions. Follow Up Care 07/27/2022 09:12:07 With:Follow-up with your director peoplesoft Address:Unknown When:2-4 days With:CJ RIVERA Address: [address] [place] [address] [phone] When:2-4 days [facility] 11-08-2022 Emergency department Discharge summary Discharge Instructions Thank you for allowing [facility] to assist you with your healthcare needs. The following is importantdischarge information regarding your hospital visit. Diagnosis from Today's Visit Abdominal pain - cause unknown n/v What to Do Next Instructions from Your Care Team No qualifying data available. Post Acute Orders No qualifying data available. You Need to Schedule the Following Appointments Follow Up with Follow-up with your director peoplesoft When Within 2-4 days Follow Up with CJ RIVERA When Within 2-4 days Where: [address] [place] [address]- [phone] Allergies penicillin (Rash) Neurontin (Vomiting) morphine (Cramping) [...] or water and you are getting dehydrated [phone] [employer] [address] [place] [address]. All rights reserved. This information is not intended as a substitute for professional medical care. Always follow yourhealthcare professional's instructions. Additional Information VACCINATE! IT SAVES LIVES! Members of the community who have not yet received the COVID-19 vaccine and would like to receive it can visit one of [facility] vaccine clinics. There are many vaccine clinic locations within the [facility]. For locations and available times, please visit www.[email or web address].[place].org. It is important to note that some COVID mobile vaccine clinics are held outdoors and may be canceled in rainy orstormy conditions. To learn more about pediatric vaccinations (ages 5-11), we invite you to visit the [facility] webpage. https://www.[facility].org/pages/2468-Uzlzg-Iqjgkoqwxvb-Mxdgfvnyye-Cdxbg-Fqu stions.htmlTo learn more about the COVID-19 vaccine, we invite you to visit the [employer] website for a list of frequently asked questions. https://[employer].[address]/assets/Iqbjkhzn-apn-Stekvswo/piwxa-Zidyoaj-Ttwacvugqe _Asked-Questions.pdf [facility] Patient Portal Access Instructions: Stay connected with your healthcare team and access your personal medical information anytime with the [facility] Patient Portal. If you would like a full copy of your medical records please contact the [facility] Medical Records Department Tuesday through Tuesday between 8a.m. and 4:30p.m. Please follow the directions below to access the portal: 1.Access the email account you provided upon registration to the [facility].2.Look for an invitation email from [facility].3.Open the email and access the invitation link: Accept Invitation to [facility]4.Fill in the required azul to create your account. Sign into www.[email or web address] [employer]age with your username and password that you [...] you will allow to register on the [facility] Patient Portal for access to your information. You can also access the [facility] Patient Portal on the Royal[employer]. Simply click on Health Records under [employer] and then click on the [employer] logo. HOW TO SAFELY DISPOSE OF PRESCRIPTION [...] Call your local pharmacy or go to http://[employer]Outbox Systems/5M9Oa4a to find one close to you.3.Make use of household items: Use cat litter or old coffee grounds to dispose medications if other options arenot available. Mix your drugs with these household products, seal them in an airtight container andthrow it into the garbage. Call [facility]: [phone] to be sure your drugs can be [...] aware that I should contact my doctor. Patient/Franchise Manager Signature: Date/Time: Relationship to Patient: Witness Name/Signature: Date/Time: [facility]63[facility]-4625 Note ORIGINAL EXAMINATION: CT OF THE ABDOMEN [...] Sign Date: 07/27/2022 12:34:57 PM Ordering Provider: [facility]11-08-2022 Note ORIGINAL EXAMINATION: CT OF THE ABDOMEN [...] Date: 07/27/2022 12:34:57 PM Ordering Provider: [facility]10-04-2022 Hospital Discharge instructions Patient Education 06/22/2022 [...] including vitamins, herbs, eye drops, creams, and ldbo-kkb-zzjiytz medicines. Any medical conditions you have. Any [...] 10/08/2005 Document Revised: 04/26/2018 Document Reviewed: 04/26/2018 [employer] Patient Education 2020 [employer]. Follow Up Care 06/17/2022 09:41:20 With:KAYE BARTON MD Address: [address] [facility], [place] [address]- When:Within 1 Day(s) Comments:Please call the office to schedule a follow up appointment With:JC RIVERA Address: [address] [facility] [place] [address]- When:1-2 days Comments:Please call the office to schedule a follow up appointment [facility] 10-04-2022 Note Discharge Instructions Thank you for allowing [facility] to assist you with your healthcare needs. [...] Appointments Appointment Type When With [facility]/2022 01:30 PM EDT CJ RIVERA [facility] Follow Up Appointments Follow Up with KAYE BARTON MD When In 1 day Why: Please call the office to schedule a follow up appointment Where: [address] [facility] [place] [address]- Follow Up with CJ RIVERA When Within 1-2 days Why: Please call the office to schedule a follow up appointment Where: [address] [facility] [place] [address]- The Following Activity and Diet Have Been [...] including vitamins, herbs, eye drops, creams, and njhd-cbj-erfayhq medicines. Any medical conditions you have. Any [...] 10/08/2005 Document Revised: 04/26/2018 Document Reviewed: 04/26/2018 [employer] Patient Education 2020 [employer] Additional Information VACCINATE! IT SAVES LIVES! Members of the community who have not yet received the COVID-19 vaccine and would like to receive it can visit one of [facility] vaccine clinics. There are many vaccine clinic locations within the [facility]. For locations and available times, please visit https://[email or web address].[place].gov/. It is important to note that some COVID mobile vaccine clinics are held outdoors and may be canceled in rainy or stormy conditions. To learn more about pediatric vaccinations (ages 5-11), we invite you to visit the [facility] webpage. https://www.[facility].org/pages/7303-Akqhe-Ojndeqaxytm-Kpwvatqxah-Hbgdy-Yiw stions.htmlTo learn more about the COVID-19 vaccine, we invite you to visit the [facility] website for a list of frequently asked questions. https://[place].[facility]/assets/Zpihysfp-oeo-Rluzdpuj/pfgcr-Vmyoxev-Mncgfsoenz _Asked-Questions.pdf [facility] Patient Portal Access Instructions: Stay connected with your healthcare team and access your personal medical information anytime with the [facility] Patient Portal.If you would like a full copy of your medical records, please contact the [facility] Medical Records Department, Tuesday through Tuesday between 8a.m. and 4:30p.m. Please follow the directions below to access the portal: 1.Access the email account you provided upon registration to the [facility].2.Look for an invitation email from [facility].3.Open the email and access the invitation link: Accept Invitation to [facility]4.Fill in the required azul to create your account. Sign into www.Handmark with your username and password that you [...] you will allow to register on the [facility] Patient Portal for access to your information. You can also access the [facility] Patient Portal on the Royal[employer]. Simply click on Health Records under [employer] and then click on the [employer] logo. HOW TO SAFELY DISPOSE OF PRESCRIPTION [...] Call your local pharmacy or go to http://[employer]Outbox Systems/6V7Tv1f to find one close to you.3.Make use of household items: Use cat litter or old coffee grounds to dispose medications if other options arenot available. Mix your drugs with these household products, seal them in an airtight container andthrow it into the garbage. Call [facility]: [phone] to be sure your drugs can be [...] aware that I should contact my doctor. Patient/Franchise Manager Signature: Date/Time: Relationship to Patient: Witness Name/Signature: Date/Time: [facility] [id number] Discharge summary Date of Service 06/22/2022 Discharge [...] and chronic constipation on Linzess [facility] with chief complaint of [...] When In 1 day Where: [address] [facility] [place] [address] [phone] Follow Up with CJ RIVERA When Within 1-2 days Why: Please call the office to schedule a follow up appointment Where: [address] [facility] [place] [address]- Follow Up Appointments No qualifying data available. [...] KEHINDE NUÑEZ MD on 06/22/2022 09:40 PM [facility] HospitalNbszcejg53-55-5070 Note Date of Service 06/21/2022 Chief Complaint [...] KEHINDE NUÑEZ MD on 06/21/2022 12:25 PM [facility] HospitalKstluzcw94-55-0954 Note Chief complaint Transition plan. Transitional action [...] Rate18(JUN 20 22:56)18(JUN 20 11:02)20(JUN 20 07:17) YFX511(JUN 20 22:56)L 87(JUN 20 14:21)118(JUN 20 16:01) [...] Domestic Concerns: Denies. Living situation: Home/Independent. 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 Lives In: 1st floor bedroom, [...] presence of Paul Fitzpatrick. I Paul Fitzpatrick EDUCATION PROFESSOR, personally performed the services described in this documentation, as described by Paula VILLANUEVA in my presence and it is both accurate and complete. This document transcribed using voice recognition software may contain typographical errors. Digitally Signed by PAUL FITZPATRICK APRN-RAIL ASSEMBLER on 06/22/2022 08:16 AM [facility] HospitalEhtllmvv86-74-8383 Note Date of Service June 20, 2022 [...] JUWAN BELTRAN MD on 06/20/2022 06:07 PM [facility] HospitalWbjgnixm60-21-5381 Note ORIGINAL EXAMINATION: THREE XRAY VIEWS OF [...] Sign Date: 06/20/2022 1:13:31 PM Ordering Provider: [facility]10-02-2022 Note ORIGINAL EXAMINATION: THREE XRAY VIEWS OF [...] Sign Date: 06/20/2022 1:13:31 PM Ordering Provider: [facility]10-02-2022 Note ORIGINAL EXAMINATION: RIGHT UPPER QUADRANT ULTRASOUND [...] Sign Date: 06/20/2022 6:55:12 AM Ordering Provider: [facility]10-02-2022 Note ORIGINAL EXAMINATION: RIGHT UPPER [...] Sign Date: 06/20/2022 6:55:12 AM Ordering Provider: [facility]10-01-2022 Note Date of Service June 19, 2022 [...] JUWAN BELTRAN MD on 06/19/2022 04:36 PM [facility] HospitalNfwpgdbx61-08-9675 Note ORIGINAL EXAMINATION: THREE XRAY VIEWS OF THE PPIMRBJ98/1/2022 12:40 pm ABDOMEN, 3 VIEWS COMPARISON: 06/17/2022 [...] Date: 06/19/2022 12:58:45 PM Ordering Provider: [facility]10-01-2022 Note ORIGINAL EXAMINATION: THREE XRAY VIEWS OF THE GHPEGCK92/1/2022 12:40 pm ABDOMEN, 3 VIEWS COMPARISON: 06/17/2022 [...] Sign Date: 06/19/2022 12:58:45 PM Ordering Provider: [facility]10-01-2022 Gastroenterology Progress note Date of Service [...] follow-up with her primary care and establish director peoplesoft Rectal bleed As per above Elective endoscopy to be arranged by primary care and established director peoplesoft Digitally Signed by MI MAYS on 06/19/2022 10:51 AM Digitally Signed by KAYE BARTON MD on 06/20/2022 11:47 AM [facility] HospitalJbdzaqxz42-19-3598 Nurse Progress note Pt is refusing IV fluids at this time. Extensive education given on importance of IV fluid therapy and still refuses. Digitally Signed by Candace Steele RN on 06/19/2022 02:48 AM [facility] HospitalEnzdmtfw73-50-4827 Note Date of Service June 18, 2022 [...] JUWAN BELTRAN MD on 06/18/2022 08:28 PM [facility] HospitalXtrhqwfc00-30-1136 Gastroenterology Consult note Date of Service 06/18/2022 [...] Domestic Concerns: Denies. Living situation: Home/Independent. 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 Lives In: 1st floor [...] by MI MAYS on 06/18/2022 09:38 AM [facility] HospitalEofhvrbq36-53-5936 Gastroenterology Consult note Date of Service 06/18/2022 [...] Domestic Concerns: Denies. Living situation: Home/Independent. 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 Lives In: 1st floor [...] data available. [1] CT Abdomen/Pelvis w/o Contrast; MAYCO, KWAME L MD 06/17/2022 05:59 EDT Digitally Signed by MI MAYS on 06/18/2022 09:38 AM [facility] HospitalWlpvulsw91-60-6202 Note Date 06/18/2022 Chief complaint Transition plan. [...] third hospitalization, recently discharged on 05/[address] [facility]. Evelyn ent lives with significant other, [...] Mood cooperative, alert and oriented Vital signs Xagtvqniqmj95.5 (00:56) Systolic Blood Ypjlcmag641 (00:56) Diastolic Blood Zjiugysq68 (00:56) Pulse85 (00:56) SpO2No result Respiratory Rate18 [...] Domestic Concerns: Denies. Living situation: Home/Independent. 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 Lives In: 1st floor bedroom, [...] 06/17/22 13:26:00 EDT, Full Code, Constant Order Isael, Priyanka KIRK, personally performed the services described in this documentation, as scribed by, Andi Arvizu RN in my presence and it is both accurate and complete. Digitally Signed by PRIYANKA ORR on 06/18/2022 06:02 PM [facility] HospitalVizjjzsi25-01-7373 History and physical note Date of Service [...] experiencing on 05/24 whenshe was admitted to [facility] for small bowel obstruction. Patient indicated that [...] that this was done up at a [facility]. Patient denies any recurrent GI bleed since [...] her on clear liquid diet. Hold patient's homeXarelto in the setting of rectal bleed. Hemoglobin currently within normal limits. Monitor for active bleeding and change in hemoglobin overnight. Patient has follow-up with gastroenterology as an outpatient on 06/21. If patient does not have any active bleeding or change in hemoglobin likely does not warrant inpatient endoscopy or colonoscopy. Discussed plan of care with patient. We will ask gastr oenterology to evaluate. Patient on Protonix IV. CODE [...] Domestic Concerns: Denies. Living situation: Home/Independent. 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 Lives In: 1st floor [...] JUWAN BELTRAN MD on 06/17/2022 06:29 PM [id number] Evaluation + Plan noteExtracted from: Title:History and [...] Appointment Date:06/29/2022 01:30:00 PM Scheduled Provider:CJ RIVERA Location:[facility] Appointment Type:Telehealth Future Scheduled Tests Laboratory* Basic Metabolic Panel 06/30/21 * Calcium Level Ionized 07/06/21 * Magnesium Level 07/06/21 * Phosphorus Level 07/06/21 * Lipid Profile 06/09/22 * Lipid Profile 06/23/21 * Prealbumin 07/06/21 * PTH, Intact 07/06/21 * Vitamin D Level 06/09/22 * Complete Metabolic Panel 06/09/22 * Complete Metabolic Panel 07/06/21 * N-Terminal proBNP 08/20/21 [facility] 09-29-2022 Hospital Discharge instructions Patient Education [...] or water and you are getting dehydrated 6095-2243 [employer] [address] [place] [address], [place] [address]. All rights reserved. This information is not intended as a substitute for professional medical care. Always follow yourhealthcare professional's instructions. Follow Up Care 06/17/2022 04:00:02 With:CJ RIVERA Address: [place] [address]- [phone] When:2-4 days [place] 09-29-2022 Emergency department Discharge summary Discharge Instructions Thank you for allowing [facility] to assist you with your healthcare needs. The following is importantdischarge information regarding your hospital visit. Diagnosis from Today's Visit Abdominal pain What to Do Next Instructions from Your Care Team No qualifying data available. Post Acute Orders No qualifying data available. You Need to Schedule the Following Appointments Follow Up with CJ RIVERA When Within 2-4 days Where: [place] [address]- [phone] Allergies penicillin (Rash) Neurontin (Vomiting) morphine (Cramping) [...] or water and you are getting dehydrated 4546-7767 [employer] [address] [place] [address]. All rights reserved. This information is not intended as a substitute for professional medical care. Always follow yourhealthcare professional's instructions. Additional Information VACCINATE! IT SAVES LIVES! Members of the community who have not yet received the COVID-19 vaccine and would like to receive it can visit one of [facility] vaccine clinics. There are many vaccine clinic locations within the [facility]. For locations and available times, please visit [email or web address]. It is important to note that some COVID mobile vaccine clinics are held outdoors and may be canceled in rainy orstormy conditions. To learn more about pediatric vaccinations (ages 5-11), we invite you to visit the [facility] webpage. https://www.[email or web address].org/pages/1447-Xmmuc-Vjjlhehjxin-Wrhapotqvb-Epzej-Yuh stions.htmlTo learn more about the COVID-19 vaccine, we invite you to visit the [employer] website for a list of frequently asked questions. [email or web address] _[email or web address]-Questions.pdf [facility] Patient [facility] Access Instructions: Stay connected with your healthcare team and access your personal medical information anytime with the [facility] Patient Portal. If you would like a full copy of your medical records please contact the [facility] Medical Records Department Tuesday through Tuesday between 8a.m. and 4:30p.m. Please follow the directions below to access the portal: 1.Access the email account you provided upon registration to the [facility].2.Look for an invitation email from [facility].3.Open the email and access the invitation link: Accept Invitation to [facility]4.Fill in the required azul to create your account. Sign into [email or web address] Signage with your username and password that you [...] you will allow to register on the [facility] Patient Portal for access to your information. You can also access the [facility] Patient Portal on the [employer] leslie. Simply click on Health Records under [employer] and then click on the Sean logo. [...] Call your local pharmacy or go to http://bit.Outbox Systems/4C2Qq8m to find one close to you.3.Make use of household items: Use cat litter or old coffee grounds to dispose medications if other options arenot available. Mix your drugs with these household products, seal them in an airtight container andthrow it into the garbage. Call [facility]: [phone] to be sure your drugs can be [...] aware that I should contact my doctor. Patient/Franchise Manager Signature: Date/Time: Relationship to Patient: Witness Name/Signature: Date/Time: [place]09-29-2022 Note ORIGINAL EXAMINATION: CT OF THE ABDOMEN [...] Date: 06/17/2022 6:53:48 AM Ordering Provider: THANG HUNTER [place]09-29-2022 Note ORIGINAL EXAMINATION: CT OF THE ABDOMEN [...] Date: 06/17/2022 6:53:48 AM Ordering Provider: THANG H[place]TER[place]09-26-2022 Miscellaneous Notes* Telephone Encounter - Sarah Osorio [...] Provider: SARAH OSORIO PA-C documented [facility] Evaluation + Plan note Future Scheduled Tests Laboratory* Lipid Profile 06/09/22 * Vitamin D Level 06/09/22 * Complete Metabolic Panel 06/09/22 [place] 08-18-2022 Miscellaneous Notes* Telephone Encounter - Sin [...] Provider: SIN KIRBY APRN.CNP documented in this encounterOhio [facility]-2022 Miscellaneous Notes* Telephone Encounter - Alaina [...] Provider: ALAINA TOMLIN APRN.CNP documented in this encounterOhio [facility]22 Hospital Discharge instructions Patient Education 04/12/2022 [...] are taking other medicines. You may use qkjv-bhl-xryfijp medicine as directed on the bottle to [...] Numbness in the groin or genital area 6411-3257 [employer] [address] [place] [address]. All rights reserved. This information is not intended as a substitute for professional medical care. Always follow yourhealthcare professional's instructions. Follow Up Care 04/12/2022 10:48:06 [facility] Address: [address] [facility] [place] [address]- [phone] When:2-4 days [place] 07-25-2022 Note Discharge Instructions Thank you for allowing [facility] to assist you with your healthcare needs. [...] 2-4 days Where: [address] [facility] [place] [address]- [phone] Allergies penicillin (Rash) Neurontin (Vomiting) morphine (Cramping) [...] are taking other medicines. You may use fujz-yac-sixnrkf medicine as directed on the bottle to [...] Numbness in the groin or genital area 9825-8718 [employer] [address] [place] [address], [place] [address]. All rights reserved. This information is not intended as a substitute for professional medical care. Always follow yourhealthcare professional's instructions. Additional Information VACCINATE! IT SAVES LIVES! Members of the community who have not yet received the COVID-19 vaccine and would like to receive it can visit one of [facility] vaccine clinics. There are many vaccine clinic locations within the [facility]. For locations and available times, please visit [email or web address]. It is important to note that some COVID mobile vaccine clinics are held outdoors and may be canceled in rainy orstormy conditions. To learn more about pediatric vaccinations (ages 5-11), we invite you to visit the [facility] webpage. https://www.[facility].org/pages/3287-Czkmh-Qymbxcibqeu-Ckdiqkmjfi-Efkeu-Kls stions.htmlTo learn more about the COVID-19 vaccine, we invite you to visit the [employer] website for a list of frequently asked questions. [email or web address]://[email or web address]-[email or web address]-Jitltbjm/xabio-Yecapgb-[email or web address] _Asked-Questions.pdf [facility] Patient Portal Access Instructions: Stay connected with your healthcare team and access your personal medical information anytime with the [employer] Patient Portal. If you would like a full copy of your medical records please contact the [facility] Medical Records Department Tuesday through Tuesday between 8a.m. and 4:30p.m. Please follow the directions below to access the portal: 1.Access the email account you provided upon registration to the hospital.2.Look for an invitation email from [facility].3.Open the email and access the invitation link: Accept Invitation to [facility]4.Fill in the required azul to create your account. Sign into [email or web address] with your username and password that you [...] you will allow to register on the [employer] Patient Portal for access to your information. You can also access the [employer] Patient Portal on the [employer] leslie. Simply click on Health Records under [employer] and then click on the Sean logo. [...] Call your local pharmacy or go to http://[employer]Outbox Systems/4C9Tc5a to find one close to you.3.Make use of household items: Use cat litter or old coffee grounds to dispose medications if other options arenot available. Mix your drugs with these household products, seal them in an airtight container andthrow it into the garbage. Call [facility]: [phone] to be sure your drugs can be [...] aware that I should contact my doctor. Patient/Franchise Manager Signature: Date/Time: Relationship to Patient: Witness Name/Signature: Date/Time: [place]07-25-2022 Nurse Progress note 2 unsuccessful attempts to straight stick for BMP using 23g butterfly, lab called to attempt Digitally Signed by Lexis Talley RN on 04/12/2022 11:51 AM [place]05-27-2022 Hospital Discharge instructions Patient Education 02/11/2022 22:54:36 [...] Swelling, pain or redness in one leg 4033-3637 [employer] [address] [place] [address]. All rights reserved. This information is not intended as a substitute for professional medical care. Always follow yourhealthcare professional's instructions. Follow Up Care 02/11/2022 18:24:39 [facility] Address: [address] [facility] [place] [address]- [phone] When:2-4 days [place] 05-17-2022 Hospital Discharge instructions Patient Education 02/02/2022 [...] foods again, start with small amounts of oqjh-tc-twqcsl, low- fat foods. These include apple sauce, [...] increase stomach acid. Don't use aspirin or cock-zcp-uyocvua pain and fever medicines, if possible. This includes nonsteroidal anti-inflammatory drugs (NSAIDs). Lose excess weight. Finish eating at least 2 hours before you go to bed or lie down. Raise the head of your bed. 5370-3989 [employer] [address] [place] [address]. All rights reserved. This information is not intended as a substitute for professional medical care. Always follow yourhealthcare professional's instructions. Follow Up Care 02/02/2022 18:33:19 With:CJ RIVERA APRN-HAMLET Address: [address] [facility] [address] [facility] [place] [address]- [phone] When:2-4 days [place] 04-12-2022 Miscellaneous Notes* Telephone Encounter - Sin [...] C-IV GREG: No Authorizing Provider: SIN KIRBY APRN.CNP documented in this encounterOhio [facility]-2022 Hospital Discharge instructions Patient Education 10/28/2021 [...] or as directed by your healthcare provider 1549-4194 [employer] [address] [place] [address]. All rights reserved. This information is not [...] for diarrhea, vomiting, or a high fever. 3047-3756 [employer] [address] [place] [address], [place] [address]. All rights reserved. This information is not intended as a substitute for professional medical care. Always follow yourhealthcare professional's instructions. Follow Up Care 10/28/2021 08:29:25 With:CJ RIVERA Address: [address] [facility] [place] [address]- [phone] Business (1) When:Within 1 Day(s) Comments:Keep your appointment as scheduled for tomorrow. [place] 01-05-2022 Evaluation + Plan noteExtracted from: Title:History and Physical Author:JESSICA HARPER LOCOMOTIVE INSPECTOR-RAIL ASSEMBLER Date:09/23/21 1. Nausea with vomiting 2. Hypokalemia [...] antiemetics. I have reached out to her community outreach specialist, Dr. Bae. Am awaiting a call [...] Date:09/30/2021 02:15:00 PM Scheduled Provider:CHAYITO DIAZ MD Location:[facility] Appointment Type:[facility] Hospital Follow-Up Appointment Date:10/21/2021 03:00:00 PM Scheduled Provider:CHAYITO DIAZ MD Location:[facility] Appointment Type:[facility] Diagnostic Tests Pending * Urine Culture 09/23/21 Future Scheduled Tests Laboratory* Basic Metabolic Panel 06/30/21 * Calcium Level Ionized 07/06/21 * Magnesium Level 07/06/21 * Phosphorus Level 07/06/21 * N-Terminal proBNP 08/20/21 * Lipid Profile 06/23/21 * Prealbumin 07/06/21 * PTH, Intact 07/06/21 * Complete Metabolic Panel 07/06/21 Radiology* MA Mammo Screening Bilateral w/ Awais 02/18/21 [place] 01-04-2022 Hospital Discharge instructions Patient Education 09/22/2021 18:35:24 Gastritis (Adult) Gastritis (Adult) Gastritis is inflammation and irritation of the stomach lining. You can have it for a short time (acute) or be long lasting (chronic). Infection with bacteria called H pylori most often causes gastritis. More than a third of people in the have these bacteria in their bodies. In [...] or as directed by your healthcare provider 0508-8822 [employer] [address] [place] [address], [place] [address]. All rights reserved. This information is not intended as a substitute for professional medical care. Always follow yourhealthcare professional's instructions. Follow Up Care 09/22/2021 16:56:34 With:CHAYITO DIAZ MD Address: [address] [place] [address] [place] [address]- When:09/30/2021 14:15:00 Comments:This is your post-hospital follow-up appointment. [place] 12-28-2021 NoteHNO ID: [id number] Author: Justin Montgomery APRN.HAMLET Service: ? Author Type: Nurse Practitioner Type: [...] route to S51 for assistance. Justin Montgomery APRN.RAIL ASSEMBLER 09/15/21 5:45 [facility]12-22-2021 Hospital Discharge instructions Patient Education 09/09/2021 14:19:04 [...] foods again, start with small amounts of mhra-lq-jcxzki, low- fat foods. These include apple sauce, [...] increase stomach acid. Don't use aspirin or ohop-rpg-agtimyd pain and fever medicines, if possible. This includes nonsteroidal anti-inflammatory drugs (NSAIDs). Lose excess weight. Finish eating at least 2 hours before you go to bed or lie down. Raise the head of your bed. 2787-6522 [employer] [address] [place] [address], [place] [address]. All rights reserved. This information is not intended as a substitute for professional medical care. Always follow yourhealthcare professional's instructions. Follow Up Care 09/09/2021 12:08:05 [facility] Address: [phone] When:2-4 days [place] 12-21-2021 NoteHNO ID: [id number] Author: Peri Segovia PSYD Service: ? Author Type: Psychologist Type: Progress Notes Filed: 09/08/2021 5:40 PM Note Text: [facility] CBT-Initiate Virtual Group September 08, 2021 Time: 3-4:30pm [id number]: Virtual Group Psychotherapy Providers: Juliette Leon and [...] remaining sessions of CBT-I Peri Segovia PSYD PsychologistVibra Hospital Of Southeastern [id number] Hospital Discharge instructions Patient Education 08/06/2021 17:09:59 [...] red color) Loss of consciousness Severe headache 9009-7223 [employer] [address] [place] [address]. All rights reserved. This information is not intended as a substitute for professional medical care. Always follow yourhealthcare professional's instructions. Follow Up Care 08/06/2021 14:30:26 With:CJ RIVERA Address:Unknown When:2-4 days [place] 11-12-2021 Hospital Discharge instructions Patient Education 07/31/2021 [...] Dry your ears with a towel or chair maker after getting wet. Also, use ear plugs [...] as directed by your healthcare provider Seizure 8413-0003 [employer] [address] [place] [address]. All rights reserved. This information is not intended as a substitute for professional medical care. Always follow yourhealthcare professional's instructions. Follow Up Care 07/31/2021 10:26:13 With:CJ RIVERARAIL ASSEMBLER Address: [phone] When:2-4 days [place] 11-03-2021 NoteHNO ID: [id number] Author: Thea Leon PSYD Service: ? Author Type: Resident Type: Progress Notes Filed: 07/22/2021 1:55 PM Note Text: Summary: BSM Evaluation Behavioral Sleep Medicine Consult Psychological Evaluation [id number] Patient was seen for an initial evaluation. All information is from patient report and review of medical record except when noted. This evaluation is NOT intended for forensic, disability or child custody purposes. Due to the [facility] and the need for ongoing mental health services, the following visit was completed virtually to reduce the risk of COVID-19 exposure. Consent related to virtual visits was provided verbally after information was sent via Omnidronehart or read to patient if MyChart not available. Location: [address] [place] [address] Miss Rutledge has not been previously evaluated and treated by Behavioral [facility] Medicine at [facility]. Dorothea Rutledge is a 45 year old year old female who presents for a BSM evaluation for hypnic jerks, referred by F Physician/Provider and Department- Sin Kirby APRN. RAIL ASSEMBLER. PMH: ACTIVE PROBLEM LIST Focal Epilepsy (Hcc) [...] of Kidney Insomnia Ischemic Colitis (Hcc) Hypertension Assisted Current Use of Anticoagulant Therapy Palpitations Pneumonia [...] around 6pm-7pm, minimal T (more content not included)...[facility] 07-02-2021 Hospital Discharge instructions Patient Education 07/02/2021 [...] the arms, legs, hands, or feet Seizures 5345-7070 [employer] [address] [place] [address]. All rights reserved. This information is not [...] are taking other medicines. You may use ndnm-ina-ryjcjcd medicines such as acetaminophen, ibuprofen, or naprosyn [...] Chills Burning or pain when passing urine 1518-4087 [employer] [address] [place] [address], [place] [address]. All rights reserved. This information is not intended as a substitute for professional medical care. Always follow yourhealthcare professional's instructions. Follow Up Care 07/02/2021 09:42:29 With:CJ LORKELLIE Address: [address] [place] [phone] Business (1) When:2-4 days Comments:Return to ED if symptoms worsen [place] 08-11-2021 NoteHNO ID: [id number] Author: Alaina Tomlin APRN.RAIL ASSEMBLER Service: ? Author Type: Nurse Practitioner Type: Progress Notes Filed: 04/29/2021 1:25 PM Note Text: Please route this encounter to the EMU Scheduling Pool ( P EMU ) or PMU Scheduling Pool ( P PMU ) through LOS AND Follow up PHASE 1.0 AND 1.5 ORDER SYNOPSIS Patient: Dorothea Rutledge ([id number]) Best contact number: [phone] Insurance: Payor: HU[employer]NA MEDICARE / Plan: HUMANA GOLD PLUS / Product Type: HMO / ----- Scheduling Team: Please call for adult patients: Alaina Flores ([phone]) or Mimi Jean [phone] Please call for pediatric patients: Alaina Flores ([phone]) or Mimi Jean [phone] ----- 04/29/2021 Admission Type EMU Adult Number of Days requested 5 - 3-5 Location Main [place] Admit Priority HEIDY PURPOSE 04/29/2021 Patient Being [...] for IVELISSE, please schedule VNS off/on office visits[facility] Future Appointments Appointment Date:07/09/2021 03:30:00 PM Scheduled Provider:CHRYSTAL GAVIRIA Location[facility] Appointment Type: OV Appointment Date:08/27/2021 01:30:00 PM Scheduled Provider:CJ RIVERA Location:[facility] Appointment Type:PC OV Future Scheduled Tests Laboratory* Basic Metabolic Panel 06/30/21 * N-Terminal proBNP 08/20/21 * Lipid Profile 06/23/21 Radiology* NM Myocardial Spect Rest/Stress 07/23/20 * MA Mammo Screening Bilateral w/ Awais 02/18/21 [place] Evaluation + Plan note Future Appointments Appointment Date:08/27/2021 01:30:00 PM Scheduled Provider:CJ RIVERA Location:[facility] Appointment Type:PC OV Future Scheduled Tests Laboratory* Basic Metabolic Panel 06/30/21 * Calcium Level Ionized 07/06/21 * Magnesium Level 07/06/21 * Phosphorus Level 07/06/21 * N-Terminal proBNP 08/20/21 * Lipid Profile 06/23/21 * Prealbumin 07/06/21 * PTH, Intact 07/06/21 * Complete Metabolic Panel 07/06/21 Radiology* MA Mammo Screening Bilateral w/ Awais 02/18/21 [place] Evaluation + Plan note Future Appointments Appointment Date:09/23/2021 08:30:00 AM Scheduled Provider:CJ RIVERA Location:[facility] Appointment Type:PC OV Future Scheduled Tests Laboratory* Basic Metabolic Panel 06/30/21 * Calcium Level Ionized 07/06/21 * Magnesium Level 07/06/21 * Phosphorus Level 07/06/21 * N-Terminal proBNP 08/20/21 * Lipid Profile 06/23/21 * Prealbumin 07/06/21 * PTH, Intact 07/06/21 * Complete Metabolic Panel 07/06/21 Radiology* MA Mammo Screening Bilateral w/ Awais 02/18/21 [place] Evaluation + Plan note Future Appointments Appointment Date:10/29/2021 01:30:00 PM Scheduled Provider:CHAYITO DIAZ MD Location:[facility] Appointment Type:PC OV Future Scheduled Tests Laboratory* Basic Metabolic Panel 06/30/21 * Calcium Level Ionized 07/06/21 * Magnesium Level 07/06/21 * Phosphorus Level 07/06/21 * N-Terminal proBNP 08/20/21 * Lipid Profile 06/23/21 * Prealbumin 07/06/21 * PTH, Intact 07/06/21 * Complete Metabolic Panel 07/06/21 Radiology* MA Mammo Screening Bilateral w/ Awais 02/18/21 [place] Evaluation + Plan note Future Appointments Appointment Date:02/09/2022 11:30:00 AM Scheduled Provider:CJ RIVERA Location:[facility] Appointment Type:PC OV Future Scheduled Tests Laboratory* Basic Metabolic Panel 06/30/21 * Calcium Level Ionized 07/06/21 * Magnesium Level 07/06/21 * Phosphorus Level 07/06/21 * Lipid Profile 06/23/21 * Prealbumin 07/06/21 * PTH, Intact 07/06/21 * Complete Metabolic Panel 07/06/21 * N-Terminal proBNP 08/20/21 Radiology* MA Mammo Screening Bilateral w/ Awais 02/18/21 [place] Evaluation + Plan note Future Appointments Appointment Date:03/15/2022 11:00:00 AM Scheduled Provider:CJ RIVERA Location:[facility] Appointment Type: OV Future Scheduled Tests Laboratory* Basic Metabolic Panel 06/30/21 * Calcium Level Ionized 07/06/21 * Magnesium Level 07/06/21 * Phosphorus Level 07/06/21 * Lipid Profile 06/23/21 * Prealbumin 07/06/21 * PTH, Intact 07/06/21 * Complete Metabolic Panel 07/06/21 * N-Terminal proBNP 08/20/21 Radiology* MA Mammo Screening Bilateral w/ Awais 02/18/21 [place] Evaluation + Plan note Future Appointments Appointment Date:03/15/2022 11:00:00 AM Scheduled Provider:CJ RIVERA Location:[facility] Appointment Type:PC OV Future Scheduled Tests Laboratory* Basic Metabolic Panel 06/30/21 * Calcium Level Ionized 07/06/21 * Magnesium Level 07/06/21 * Phosphorus Level 07/06/21 * Lipid Profile 06/23/21 * Prealbumin 07/06/21 * PTH, Intact 07/06/21 * Complete Metabolic Panel 07/06/21 * N-Terminal proBNP 08/20/21 [place] [facility] + Plan note Future Appointments Appointment Date:07/01/2021 10:00:00 AM Scheduled Provider:CHRYSTAL GAVIRIA Location:[facility] Appointment Type:CV OV Appointment Date:08/27/2021 01:30:00 PM Scheduled Provider:CJ RIVERA APRN-HAMLET Location:[facility] Appointment Type:PC OV Future Scheduled Tests Laboratory* Basic Metabolic Panel 06/30/21 * N-Terminal proBNP 08/20/21 * Lipid Profile 06/23/21 Radiology* NM Myocardial Spect Rest/Stress 07/23/20 * MA Mammo Screening Bilateral w/ Awais 02/18/21 [place] [facility] + Plan note Future Appointments Appointment Date:04/20/2022 01:40:00 PM Scheduled Provider:MARTINA ARROYO Location:[facility] Appointment Type:PC OV Future Scheduled Tests Laboratory* Basic Metabolic Panel 06/30/21 * Calcium Level Ionized 07/06/21 * Magnesium Level 07/06/21 * Phosphorus Level 07/06/21 * Lipid Profile 06/23/21 * Prealbumin 07/06/21 * PTH, Intact 07/06/21 * Complete Metabolic Panel 07/06/21 * N-Terminal proBNP 08/20/21 [place] [facility] + Plan note Future Appointments Appointment Date:06/29/2022 01:30:00 PM Scheduled Provider:CJ RIVERA Location:[facility] Appointment Type:Telehealth Future Scheduled Tests Laboratory* Basic Metabolic Panel 06/30/21 * Calcium Level Ionized 07/06/21 * Magnesium Level 07/06/21 * Phosphorus Level 07/06/21 * Lipid Profile 06/09/22 * Lipid Profile 06/23/21 * Prealbumin 07/06/21 * PTH, Intact 07/06/21 * Vitamin D Level 06/09/22 * Complete Metabolic Panel 06/09/22 * Complete Metabolic Panel 07/06/21 * N-Terminal proBNP 08/20/21 [place] [facility] + Plan note Future Appointments Appointment Date:10/04/2022 03:30:00 PM Scheduled Provider:CJ RIVERA Location:[facility] Appointment Type:PC OV Future Scheduled Tests Laboratory* Lipid Profile 06/09/22 * Vitamin D Level 06/09/22 * Complete Metabolic Panel 06/09/22 * N-Terminal proBNP 08/20/21 [facility] Evaluation + Plan note Future Appointments Appointment Date:10/20/2022 01:30:00 PM Scheduled Provider:CJ RIVERA Location:[facility] Appointment Type:PC OV Future Scheduled Tests Laboratory* Lipid Profile 06/09/22 * Vitamin D Level 06/09/22 * Complete Metabolic Panel 06/09/22 [place] [facility] + Plan note Future Appointments Appointment Date:12/09/2022 02:30:00 PM Scheduled Provider: Location:[facility] Appointment Type:CV OV Appointment Date:01/24/2023 02:30:00 PM Scheduled Provider:CJ RIVERA Location:[facility] Appointment Type:PC OV Future Scheduled Tests Laboratory* Lipid Profile 06/09/22 * Vitamin D Level 06/09/22 * Complete Metabolic Panel 06/09/22 [place] Evaluation + Plan note Future Appointments Appointment Date:04/18/2023 03:30:00 PM Scheduled Provider:CJ RIVERA Location:[facility] Appointment Type:PC OV Future Scheduled Tests Laboratory* Basic Metabolic Panel 12/07/22 * Magnesium Level 12/07/22 * Complete Blood Count 12/07/22 * Lipid Profile 06/09/22 * Vitamin D Level 06/09/22 * Complete Metabolic Panel 06/09/22 * N-Terminal proBNP 12/07/22 [place] Evaluation + Plan note Future Appointments Appointment Date:05/03/2023 01:00:00 PM Scheduled Provider:CHAYITO DIAZ MD Location:[facility] Appointment Type:[facility] Hospital Follow-Up Future Scheduled Tests Laboratory* Basic Metabolic Panel 12/07/22 * Lipase Level 04/18/23 * Magnesium Level 12/07/22 * Complete Blood Count 12/07/22 * Lipid Profile 06/09/22 * Vitamin D Level 06/09/22 * Complete Metabolic Panel 04/18/23 * Complete Metabolic Panel 06/09/22 * N-Terminal proBNP 12/07/22 [place] [facility] + Plan note Future Appointments Appointment Date:05/12/2023 10:30:00 AM Scheduled Provider:CHAYITO DIAZ MD Location:[facility] Appointment Type:[facility] Follow-Up Future Scheduled Tests Laboratory* Basic Metabolic Panel 12/07/22 * Lipase Level 04/18/23 * Magnesium Level 12/07/22 * Complete Blood Count 12/07/22 * Lipid Profile 06/09/22 * Vitamin D Level 06/09/22 * Complete Metabolic Panel 04/18/23 * Complete Metabolic Panel 06/09/22 * N-Terminal proBNP 12/07/22 [place] [facility] + Plan note Future Appointments Appointment Date:06/06/2023 01:00:00 PM Scheduled Provider:CJ RIVERA Location:[facility] Appointment Type:[facility] Hospital Follow-Up Diagnostic Tests Pending * Urine Culture 05/19/23 Future Scheduled Tests Laboratory* Basic Metabolic Panel 12/07/22 * Lipase Level 04/18/23 * Magnesium Level 12/07/22 * Complete Blood Count 12/07/22 * Lipid Profile 06/09/22 * Vitamin D Level 06/09/22 * Complete Metabolic Panel 04/18/23 * Complete Metabolic Panel 06/09/22 * N-Terminal proBNP 12/07/22 [place] Evaluation + Plan note Future Appointments Appointment Date:06/06/2023 01:00:00 PM Scheduled Provider:CJ RIVERA Location:[facility] Appointment Type:PC OV Hospital Follow-Up Future Scheduled Tests Laboratory* Basic Metabolic Panel 12/07/22 * Lipase Level 04/18/23 * Magnesium Level 12/07/22 * Complete Blood Count 12/07/22 * Lipid Profile 06/09/22 * Vitamin D Level 06/09/22 * Complete Metabolic Panel 04/18/23 * Complete Metabolic Panel 06/09/22 * N-Terminal proBNP 12/07/22 [place] [facility] + Plan note Future Appointments Appointment Date:11/01/2023 02:30:00 PM Scheduled Provider:MARGIE SOTO DO Location:[facility] Appointment Type: OV Future Scheduled Tests Laboratory* Basic Metabolic Panel 12/07/22 * Lipase Level 04/18/23 * Magnesium Level 12/07/22 * Complete Blood Count 12/07/22 * Complete Metabolic Panel 04/18/23 * N-Terminal proBNP 12/07/22 Radiology* CT Abd/Pelvis w/ IV Contrast Only 06/06/23 [place] Evaluation + Plan note Future Appointments Appointment Date:10/21/2023 11:30:00 AM Scheduled Provider: Location:[facility] Appointment Type:DB Diabetic Individual Visit (AOH) Appointment Date:11/01/2023 02:30:00 PM Scheduled Provider:MARGIE SOTO DO Location:[facility] Appointment Type:[facility] Future Scheduled Tests Laboratory* Basic Metabolic Panel 12/07/22 * Lipase Level 04/18/23 * Magnesium Level 12/07/22 * Complete Blood Count 12/07/22 * C-Peptide 10/17/23 * Complete Metabolic Panel 04/18/23 * N-Terminal proBNP 12/07/22 Radiology* CT Abd/Pelvis w/ IV Contrast Only 06/06/23 [place] evaluation + Plan note Future Appointments Appointment Date:11/10/2023 01:30:00 PM Scheduled Provider:CJ RIVERA Location:[facility] Appointment Type: OV ED Follow Up Appointment Date:11/18/2023 02:30:00 PM Scheduled Provider: Location:[facility] Appointment Type:MEDS - Diabetic Individual Visit Appointment Date:11/18/2023 03:00:00 PM Scheduled Provider: Location:[facility] Appointment Type:NUT Diet Visit Individual Future Scheduled Tests Laboratory* Basic Metabolic Panel 12/07/22 * Lipase Level 04/18/23 * Magnesium Level 12/07/22 * Complete Blood Count 12/07/22 * Complete Metabolic Panel 04/18/23 * N-Terminal proBNP 12/07/22 Radiology* CT Abd/Pelvis w/ IV Contrast Only 06/06/23 [place] Evaluation + Plan note Future Appointments Appointment Date:01/24/2024 01:30:00 PM Scheduled Provider:CJ RIVERA Location:[facility] Appointment Type:PC OV Appointment Date:01/27/2024 03:00:00 PM Scheduled Provider: Location:[facility] Appointment Type:MA Mammogram Screening Bilateral w/ Awais Appointment Date:04/19/2024 02:00:00 PM Scheduled Provider:ESTHELA VALDIVIA MD Location:[facility] Appointment Type:ENDO EDUCATION PROFESSOR Future Scheduled Tests Laboratory* Lipase Level 04/18/23 * Complete Metabolic Panel 04/18/23 Radiology* MA Mammo Screening Bilateral w/ Awais 01/27/24 * CT Abd/Pelvis w/ IV Contrast Only 06/06/23 [place] evaluation + Plan note Future Appointments Appointment Date:03/20/2024 11:30:00 AM Scheduled Provider:CJ RIVERA Location:[facility] Appointment Type:PC OV Appointment Date:03/23/2024 03:30:00 PM Scheduled Provider: Location:[facility] Appointment Type:MA Mammogram Screening Bilateral w/ Awais Appointment Date:04/19/2024 02:00:00 PM Scheduled Provider:ESTHELA VALDIVIA MD Location:[facility] Appointment Type:ENDO EDUCATION PROFESSOR Future Scheduled Tests Laboratory* Lipase Level 04/18/23 * Lipid Profile 05/17/24 * Complete Metabolic Panel 04/18/23 * Complete Metabolic Panel 05/17/24 Radiology* MA Mammo Screening Bilateral w/ Awais 03/23/24 * CT Abd/Pelvis w/ IV Contrast Only 06/06/23 [facility] Evaluation note* Diagnosis Focal epilepsy (HCC) Localization-related (focal) (partial) epilepsy and epileptic syndromes with simple partial seizures, without mention of intractable epilepsy [facility] Focal epilepsy (HCC) Localization-related (focal) (partial) epilepsy and epileptic syndromes with simple partial seizures, without mention of intractable epilepsy [facility] [place] [facility] Diagnosis Partial epilepsy with impairment of consciousness (HCC) Localization-related (focal) (partial) epilepsy and epileptic syndromes with complex partial seizures, without mention of intractable epilepsy Focal epilepsy (HCC) Localization-related (focal) (partial) epilepsy and epileptic syndromes with simple partial seizures, without mention of intractable epilepsy [facility] Diagnosis Focal epilepsy (HCC) Localization-related (focal) (partial) epilepsy and epileptic syndromes with simple partial seizures, without mention of intractable epilepsy [facility] Diagnosis Partial epilepsy with impairment of consciousness (HCC) Localization-related (focal) (partial) epilepsy and epileptic syndromes with complex partial seizures, without mention of intractable epilepsy [facility] [place] [facility]* Diagnosis Focal epilepsy (HCC) Localization-related (focal) (partial) epilepsy and epileptic syndromes with simple partial seizures, without mention of intractable epilepsy [facility] [place] [facility]* Diagnosis Psychosis, unspecified psychosis type (HCC)- Primary Agitation Other and unspecified special symptom or syndrome, not elsewhere classified [facility] [place] [facility] Diagnosis Focal epilepsy (HCC) Localization-related (focal) (partial) epilepsy and epileptic syndromes with simple partial seizures, without mention of intractable epilepsy [facility] Diagnosis Partial epilepsy with impairment of consciousness (HCC) Localization-related (focal) (partial) epilepsy and epileptic syndromes with complex partial seizures, without mention of intractable epilepsy [facility] Constitutional: Well developed, awake/alert/oriented x3, no [...] reflexes, normal strengthPsychological: Appropriate mood and behavior [facility]* Cardiovascular: Regular, rate and rhythm, no murmurs, 2+ equal pulses of the extremities, normal S 1and S 2Gastrointestinal: Soft, TTP of Rt~mid abdomen. No guarding.Extremities: normal extremities, no cyanosis edema, contusions or wounds, no clubbingConstitutional: Well developed, awake/alert/oriented x3, no distress, alert and cooperative [facility]* Diagnosis Epigastric pain Abdominal pain, epigastric Other chronic pancreatitis (CMS/HCC) documented in this encounter [facility] Work Phone: [phone] note* Diagnosis Chronic pancreatitis, unspecified pancreatitis type (CMS/HCC)- Primary documented in this encounter [facility] Work Phone: [phone] note* Diagnosis Poor intravenous access documented in this encounter [facility] Work Phone: [phone] note* Diagnosis Poor intravenous access documented in this encounter [facility] Work Phone: [phone] note* Diagnosis Poor intravenous access documented in this encounter [facility] Work Phone: [phone] note* Diagnosis Chronic pancreatitis, unspecified pancreatitis type (CMS/HCC)- Primary Generalized abdominal pain Abdominal pain, generalized documented in this encounter [facility] Work Phone: [phone] note* Diagnosis Chronic pancreatitis, unspecified pancreatitis type (CMS/HCC) documented in this encounter [facility] Work Phone: [phone] note* Diagnosis Chronic pancreatitis, unspecified pancreatitis type (CMS/HCC) documented in this encounter [facility] Work Phone: Evaluation note* Diagnosis 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 Chronic pancreatitis, unspecified pancreatitis type (CMS/HCC) Right ear impacted cerumen Impacted cerumen Diabetes mellitus, type 2 (CMS/HCC) Type II or unspecified type diabetes mellitus without mention of complication, not stated as uncontrolled documented in this encounter [facility] Work Phone: [phone] note* Diagnosis Other chronic pancreatitis (CMS/HCC) documented in this encounter [facility] Work Phone: [phone] note* Diagnosis Other chronic pancreatitis (CMS/HCC) documented in this encounter [facility] Work Phone: [phone] note* Diagnosis Generalized abdominal pain- Primary Abdominal pain, generalized Generalized abdominal pain Abdominal pain, generalized 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 Acute embolism and thrombosis of unspecified deep veins of distal lower extremity, bilateral (CMS/HCC) Palpitations Factor 5 Leiden mutation, heterozygous ([facility]/HCC) Abdominal pain Abdominal pain, unspecified site documented in this encounter [facility] Work Phone: [phone] note* Diagnosis Generalized abdominal pain- Primary Abdominal pain, generalized Chronic pancreatitis, unspecified pancreatitis type (Multi) documented in this encounter [facility] Work Phone: [phone] note* Diagnosis Acute pancreatitis without necrosis or infection, unspecified (HHS-HCC)- Primary Pulmonary embolism on right (Multi) Other pulmonary embolism and infarction Idiopathic chronic pancreatitis (Multi) Single subsegmental pulmonary embolism without acute cor pulmonale (Multi) Swelling of extremity Anticoagulant long-term use Encounter for long-term (current) use of anticoagulants documented in this encounter [facility] Work Phone: Evaluation note* Diagnosis History of epistaxis- Primary Hematemesis, unspecified whether nausea present Anticoagulated Encounter for long-term (current) use of anticoagulants documented in this encounter [facility] Work Phone: Evaluation note* Diagnosis Focal epilepsy [...] vulva and vagina [facility] [place] [facility]* Diagnosis Focal epilepsy (HCC)- Primary Localization-related [...] female genital organs [facility] [place] [facility]* Diagnosis Focal epilepsy (HCC)- Primary Localization-related (focal) (partial) epilepsy and epileptic syndromes with simple partial seizures, without mention of intractable epilepsy Anxiety and depression Dysthymic disorder Headaches Nicotine use disorder Tobacco use disorder Obesity, Class I, BMI 30-34.9 Obesity, unspecified Urinary frequency- Primary Flank pain Abdominal pain, unspecified site [facility] Narrative No data available for this section [facility] Discharge instructions No data available for this section [facility] Discharge instructions* Activity:activity as tolerated. May shower. * Call Provider If:Temperature is greater than 102 degrees. Chills. Drinking less than normal. * Follow Up Appointment 1:Physician/Dept/Service: Cj Rivera RAIL ASSEMBLER - PCPScheduled Date/Time: 06-Jun-2023 13:00Location: [address] [place] [address] Pwtzy Number: [phone]: Please arrive 10-15 minutes early, bring discharge summary, bring photo ID, current list of medications & dosages, insurance cards and any copay that may apply. If unable to keep this appointment, please call to cancel at least 24 hrs prior to appointment. * Follow Up Appointment 2:Physician/Dept/Service: Dr. Hicks - GastroenterologyScheduled Date/Time: 18-May-2023 10:20Location: [address] [address]Fqeja Number: [phone]: Please arrive 10-15 minutes early, bring photo ID, current list of medications & dosages, insurance cards and any copay that may apply. If unable to keep this appointment, please call to cancel at least 24 hrs prior to appointment. * Follow Up Appointment 3:Physician/Dept/Service: Dr. Rasmussen - Pain MedicineScheduled Date/Time: 25-May-2023 09:00Location: [address] [place] [id number] Number: [phone]: Please arrive 10-15 minutes early, bring photo ID, current list of medications & dosages, insuranc e cards and any copay that may apply. If unable to keep this appointment, please call to cancel at least 24 hrs prior to appointment. [facility]* Activity:activity as tolerated. Weight-bearing Instructions: full weight bearing. * Call Provider If:Vomiting (throwing up) and not able to eat or drink for 12 hours. Any new concerning symptoms. * Follow Up Appointment 1:Physician/Dept/Service: Gastroenterology clinicScheduled Date/Time: 06-Jul-2023 09:40Location: [facility] * Follow Up Appointment 2:Physician/Dept/Service: Pain management clinicScheduled Date/Time: 05-Jul-2023 13:30Location: [facility]* Attachments The following attachments cannot be sent through Care Everywhere. * Acute pancreatitis (Micronesian) documented in this [facility] Work Phone: Note* Andi Sandoval RN: PERFORM Event Display: [facility] Outpatient Patient Summary Authored Date: Discharge Instructions [...] Schedule the Following Appointments Follow Up with [facility] When Within 2-4 days Where: Follow Up with CJ RIVERA When Within 2-4 days Where: [address] [facility] [place] [address]- [phone] Follow Up with Go to emergency room [...] When Why Instructions Last Dose New acetaminophen-hydrocodone ([place] 325- 5 mg oral tablet) 1 tab(s) [...] pharmacies. Medication Leaflets ondansetron (oral) (on BENJI se sean) What [...] may report side effects to FDA at 8-276-OTC-2200. What other drugs will affect ondansetron? Ondansetron [...] interact with ondansetron. This includes prescription and kapq-ygj-uwwvykh medicines, vitamins, and herbal products. Give a [...] to ensure that the information provided by [employer]') is accurate, up-to-date, and complete, but no guarantee is made to that effect. Drug information contained herein may be time sensitive. [employer] information has been compiled for use by healthcare practitioners and consumers in the [place] and therefore [employer] does not warrant that uses outside of the [place] are appropriate, unless specifically indicated otherwise. [employer]s drug information does not endorse drugs, diagnose patients or recommend therapy. [employer] drug information isan informational resource designed to [...] effective or appropriate for any given patient. [employer] does not assume any responsibility for any aspect of healthcare administered with the aid of information [employer] provides. The information contained herein is not intended to cover all possible uses, directions, precautions, warnings, drug interactions, allergic reactions, or adverse effects. If you have questions about the drugs you are taking, check with your doctor, nurse or pharmacist. Copyright 3026-0765 [facility] [employer] [facility]. Version: 16.. Revision Date: 04/21/2023. cephalexin (sef [...] may report side effects to FDA at 9-950-IFO-6602. What other drugs will affect cephalexin? Tell your doctor about all your other medicines, especially: metformin; or probenecid. This list is not complete. Other drugs may affect cephalexin, including prescription and jzgl-jxg-mxnaapc medicines, vitamins, and herbal products. Not all [...] to ensure that the information provided by [employer]') is accurate, up-to-date, and complete, but no guarantee is made to that effect. Drug information contained herein may be time sensitive. [employer] information has been compiled for use by healthcare practitioners and consumers in the [place] and therefore [employer] does not warrant that uses outside of the [place] are appropriate, unless specifically indicated otherwise. [employer] drug information does not endorse drugs, diagnose patients or recommend therapy. [employer] drug information isan informational resource designed to [...] effective or appropriate for any given patient. [employer] does not assume any responsibility for any aspect of healthcare administered with the aid of information [employer] provides. The information contained herein is not intended to cover all possible uses, directions, precautions, warnings, drug interactions, allergic reactions, or adverse effects. If you have questions about the drugs you are taking, check with your doctor, nurse or pharmacist. Copyright 3514-2797 [employer] Version: .. Revision Date: 04/20/2023. acetaminophen and hydrocodone (a [...] may report side effects to FDA at 8-435-UAU-8708. What other drugs will affect acetaminophen and [...] affect acetaminophen and hydrocodone, including prescription and eocg-xbp-vwmmjyi medicines, vitamins, and herbal products. Not all [...] to ensure that the information provided by [employer]') is accurate, up-to-date, and complete, but no guarantee is made to that effect. Drug information contained herein may be time sensitive. [employer] information has been compiled for use by healthcare practitioners and consumers in the [place] and therefore [employer] does not warrant that uses outside of the [place] are appropriate, unless specifically indicated otherwise. [employer] drug information does not endorse drugs, diagnose patients or recommend therapy. [employer] drug information isan informational resource designed to [...] effective or appropriate for any given patient. [employer] does not assume any responsibility for any aspect of healthcare administered with the aid of information [employer] provides. The information contained herein is not intended to cover all possible uses, directions, precautions, warnings, drug interactions, allergic reactions, or adverse effects. If you have questions about the drugs you are taking, check with your doctor, nurse or pharmacist. Copyright 9399-3987 [employer] Version: 19.. Revision Date: 05/09/2023. Education Materials [...] If needed, more treatment may be started. 8225-6299 [employer] [address] [place] [address], [place] [address]. All rights reserved. This information is not [...] blood in stool Seizure Loss of consciousness 7302-6586 [employer] [address] [place] [address]. All rights reserved. This information is not intended as a substitute for professional medical care. Always follow yourhealthcare professional's instructions. Additional Information VACCINATE! IT SAVES LIVES! Members of the community who have not yet received the COVID-19 vaccine and would like to receive it can visit one of [facility] vaccine clinics. There are many vaccine clinic locations within the [facility]. For locations and available times, please visit [email or web address] It is important to note that some COVID mobile vaccine clinics are held outdoors and may be canceled in rainy or stormy conditions. To learn more about pediatric vaccinations (ages 5-11), we invite you to visit the [facility] webpage. [email or web address] learn more about the COVID-19 vaccine, we invite you to visit the CDC website for a list of frequently asked questions. https://www.cdc.gov/coronavirus/2019-ncov/vaccines/faq.html [facility] Patient Portal Access Instructions: Stay connected with your healthcare team and access your personal medical information anytime with the [facility] Patient Portal. If you would like a full copy of your medical records please contact the [facility] Medical Records Department Tuesday through Tuesday between 8a.m. and 4:30p.m. Please follow the directions below to access the portal: 1.Access the email account you provided upon registration to the [facility].2.Look for an invitation email from [facility].3.Open the email and access the invitation link: Accept Invitation to [facility]4.Fill in the required azul to create your account. Sign into www.Handmark with your username and password that you [...] you will allow to register on the [employer] Patient Portal for access to your information. You can also access the [facility] Patient Portal on the [employer]. Simply click on Health Records under [employer] and then click on the [employer] logo. HOW TO SAFELY DISPOSE OF PRESCRIPTION [...] Call your local pharmacy or go to [email or web address] to find one close to you.3.Make use of household items: Use cat litter or old coffee grounds to dispose medications if other options arenot available. Mix your drugs with these household products, seal them in an airtight container andthrow it into the garbage. Call [facility]: [phone] to be sure your drugs can be [...] been reviewed and explained to me and I,DOROTHEA RUTLEDGE M understand my current condition and have read and understand these discharge instructions. I have received a written copy of the plan/instructions. If I have questions, I am aware that I should contact my doctor. Patient/Franchise Manager Signature: Date/Time: Relationship to Patient: Witness Name/Signature: Date/Time: [place] Progress note No data available for this section [place] Reason for referral (narrative)* Consultation (Routine) - Authorized Specialty Diagnoses / Procedures Referred By Lester almaraz Referred To Contact Gastroenterology Diagnoses Chronic pancreatitis, unspecified pancreatitis type (CMS/HCC) Procedures Follow [place] [address] Department [place] [address] Referral ID Status Reason Start Date Expiration Date V isits Requested Visits Authorized [id number] Authorized 08/03/2023 08/02/2024 1 1 * Medications - Pending Review Specialty Diagnoses / Procedures Referred By Lester almaraz Referred To Contact Diagnoses Chronic pancreatitis, unspecified pancreatitis type (CMS/[place]) [place] [address] [address] Department of Medicine-Gastroenterology [place] [id number] Referral ID Status Reason Start Date Expiration Date V isits Requested Visits Authorized [id number] Pending Review 1 1 [facility] Work Phone: Reason for referral (narrative)* Consultation (Routine) - Authorized Specialty Diagnoses / Procedures Referred By Contac t Referred To Contact Family Medicine / Primary Care Diagnoses Chronic pancreatitis, unspecified pancreatitis type (CMS/HCC) [place]ón [place] [address] [email or web address] [facility] Department of Medicine-[place] [address] Referral ID Status Reason Start Date Expiration Date Visits Requested Visits Authorized [id number] Authorized Specialty Services Required 11/15/2023 11/14/2024 1 1 [facility] Work Phone: Reason for referral (narrative)* Consultation (Routine) - Authorized Specialty Diagnoses / Procedures Referred By Contac t Referred To Contact Pharmacy Diagnoses Anticoagulant long-term use Brea Nolen MD [address] [place] [address] Referral ID Status Reason Start Date Expiration Date Visits Requested Visits Authorized [id number] Authorized Specialty Services Required 03/01/2024 03/01/2025 1 1 T [facility] Work Phone: Reason for visit Narrative* Auth/Cert Specialty Diagnoses / Procedures Referred By Contac t Referred To Contact Diagnoses Generalized abdominal pain necrotizing [place] [address] [facility] Department [place] [address] [facility] [address] [address] [email or web address] [address] Referral ID Status Reason Start Date Expiration Date Visits Re quested Visits Authorized [id number] 1 1 [facility] Work Phone: Summary Purpose Family History Unknown Family Member Name Dates Details Family history of coronary a rtery disease: Mother(V17.3, Z82.49) Status:Active Unknown Family Member Name Dates Details Family history of coronary a rtery disease: Mother(V17.3, Z82.49) Status:Active Advance Directives Documents on File Type Date Recorded Patient Franchise Manager Expl anation Advance Directive(s) 05/22/2021 8:45 PM Advance Directive(s) 05/22/2021 10:16 PM Advance Directive(s) 05/22/2021 10:17 PM Advance Directive(s) 03/05/2020 6:31 PM Advance Directive(s) 11/26/2019 12:11 PM Advance Directive(s) 11/26/2019 12:27 PM Documents on File Type Date Recorded Patient Franchise Manager Expl anation Advance Directive(s) 05/22/2021 10:17 PM [...] is located abd pain. Rates her pain 10/29. Describes her pain as deep in nature. [...] chronic pancreatitis (CMS/HCC) Procedures EGD w Fluoro HI ESOPHAGOGASTRODUODENOSCOPY TRANSORAL DIAGNOSTIC HI EGD TRANSORAL BIOPSY SINGLE/[place] [address] [place] [facility] Department of Medicine-[place] [address] Referral ID Status Reason Start Date Expiration Date V isits Requested Visits Authorized [id number] Authorized 11/15/2023 11/14/2024 1 1 Specialty Diagnoses / Procedures Referred By Lester t Referred To Contact Radiology Diagnoses Chronic pancreatitis, unspecified pancreatitis type (CMS/HCC) Procedures MRCP pancreas [place] [address] [address] Department of Medicine-[place] [address] Referral ID Status Reason Start Date Expiration Date Visits Requested Visits Authorized [id number] Authorized Perform Procedure 10/12/2023 10/11/2024 1 1 Specialty Diagnoses / Procedures Referred By Contac [place] [address] [address] Department [place] [address] Referral ID Status Reason Start Date Expiration Date V isits Requested Visits Authorized [id number] Pending Review 08/26/2023 08/25/2024 1 1 Specialty Diagnoses / Procedures Referred By Contac t Referred To Contact Radiology Diagnoses Poor intravenous access Procedures IR CVC port placement Consult to Interventional Radiology Tianna Rasmussen MD [address] [place] [address] Referral ID Status Reason Start Date Expiration Date Visits Requested Visits Authorized [id number] Authorized Perform Procedure 3 08/09/2024 1 1 Additional Source Comments INFORMATION SOURCE (unrecogn ized section and content) DATE CREATED AUTHOR 03/10/2018 [facility] DATE CREATED AUTHOR AUTHOR'S ORGANIZ ATION 03/10/2018 [facility] DATE CREATED AUTHOR AUTHOR'S ORGANIZ ATION 03/10/2018 [facility] DATE CREATED AUTHOR AUTHOR'S ORGANIZ ATION 03/13/2018 [facility] DATE CREATED AUTHOR AUTHOR'S ORGANIZ ATION 07/14/2018 [facility] DATE CREATED AUTHOR AUTHOR'S ORGANIZ ATION 09/18/2019 [facility] DATE CREATED AUTHOR AUTHOR'S ORGANIZ ATION 12/17/[address] [facility] DATE CREATED AUTHOR AUTHOR'S ORGANIZ ATION 10/30/2020 [facility] DATE CREATED AUTHOR AUTHOR'S ORGANIZ ATION 05/01/2021 [facility] DATE CREATED AUTHOR AUTHOR'S ORGANIZ ATION 09/19/2021 [facility] DATE CREATED AUTHOR AUTHOR'S ORGANIZ ATION 04/30/2023 [facility] DATE CREATED AUTHOR AUTHOR'S ORGANIZ ATION 05/26/2023 [employer] DATE CREATED AUTHOR AUTHOR'S ORGANIZ ATION 12/17/2023 [facility] DATE CREATED AUTHOR AUTHOR'S ORGANIZ ATION 03/22/2024 [facility] DATE CREATED AUTHOR AUTHOR'S ORGANIZ ATION 06/04/2024 [facility] DATE CREATED AUTHOR AUTHOR'S ORGANIZ ATION 06/09/2024 [facility] DATE CREATED AUTHOR AUTHOR'S ORGANIZ ATION 06/09/2024 [facility] DATE CREATED AUTHOR AUTHOR'S ORGANIZ ATION 06/11/2024 [facility] DATE CREATED AUTHOR AUTHOR'S ORGANIZ ATION 06/15/2024 [facility] DATE CREATED AUTHOR AUTHOR'S ORGANIZ ATION 06/16/2024 [facility] Source Comments (unrecognize d section and content) In the event this informatio n is protected by the Federal Confidentiality of Alcohol and Drug Abuse Patient Records regulations: The Federal rules restrict any use of the information to criminally investigate or prosecute any alcohol or drug abuse patient.[facility] the event this information is protected by the Federal Confidentiality of Alcohol and Drug Abuse Patient Records regulations: The Federal rules restrict any use of the information to criminally investigate or prosecute any alcohol or drug abuse patient.[facility] HospitalIn the event this information is protected by the Federal Confidentiality of Alcohol and Drug Abuse Patient Records regulations: The Federal rules restrict any use of the information to criminally investigate or prosecute any alcohol or drug abuse patient.[facility] HospitalIn the event this information is protected by the Federal Confidentiality of Alcohol and Drug Abuse Patient Records regulations: The Federal rules restrict any use of the information to criminally investigate or prosecute any alcohol or drug abuse patient.[facility] HospitalIn the event this information is protected by the Federal Confidentiality of Alcohol and Drug Abuse Patient Records regulations: The Federal rules restrict any use of the information to criminally investigate or prosecute any alcohol or drug abuse patient.[facility] HospitalIn the event this information is protected by the Federal Confidentiality of Alcohol and Drug Abuse Patient Records regulations: The Federal rules restrict any use of the information to criminally investigate or prosecute any alcohol or drug abuse patient.[facility] HospitalIn the event this information is protected by the Federal Confidentiality of Alcohol and Drug Abuse Patient Records regulations: The Federal rules restrict any use of the information to criminally investigate or prosecute any alcohol or drug abuse patient.[facility] Hospital[facility] the event this information is protected by the Federal Confidentiality of Alcohol and Drug Abuse Patient Records regulations: The Federal rules restrict any use of the information to criminally investigate or prosecute any alcohol or drug abuse patient.[facility] HospitalIn the event this information is protected by the Federal Confidentiality of Alcohol and Drug Abuse Patient Records regulations: The Federal rules restrict any use of the information to criminally investigate or prosecute any alcohol or drug abuse patient.[facility] HospitalIn the event this information is protected by the Federal Confidentiality of Alcohol and Drug Abuse Patient Records regulations: The Federal rules restrict any use of the information to criminally investigate or prosecute any alcohol or drug abuse patient.[facility] HospitalIn the event this information is protected by the Federal Confidentiality of Alcohol and Drug Abuse Patient Records regulations: The Federal rules restrict any use of the information to criminally investigate or prosecute any alcohol or drug abuse patient.[facility] HospitalIn the event this information is protected by the Federal Confidentiality of Alcohol and Drug Abuse Patient Records regulations: The Federal rules restrict any use of the information to criminally investigate or prosecute any alcohol or drug abuse patient.[facility] HospitalIn the event this information is protected by the Federal Confidentiality of Alcohol and Drug Abuse Patient Records regulations: The Federal rules restrict any use of the information to criminally investigate or prosecute any alcohol or drug abuse patient.[facility] HospitalIn the event this information is protected by the Federal Confidentiality of Alcohol and Drug Abuse Patient Records regulations: The Federal rules restrict any use of the information to criminally investigate or prosecute any alcohol or drug abuse patient.[facility] HospitalIn the event this information is protected by the Federal Confidentiality of Alcohol and Drug Abuse Patient Records regulations: The Federal rules restrict any use of the information to criminally investigate or prosecute any alcohol or drug abuse patient.[facility] HospitalIn the event this information is protected by the Federal Confidentiality of Alcohol and Drug Abuse Patient Records regulations: The Federal rules restrict any use of the information to criminally investigate or prosecute any alcohol or drug abuse patient.[facility] HospitalIn the event this information is protected by the Federal Confidentiality of Alcohol and Drug Abuse Patient Records regulations: The Federal rules restrict any use of the information to criminally investigate or prosecute any alcohol or drug abuse patient.[facility] HospitalIn the event this information is protected by the Federal Confidentiality of Alcohol and Drug Abuse Patient Records regulations: The Federal rules restrict any use of the information to criminally investigate or prosecute any alcohol or drug abuse patient.[facility] Reason for Visit (unrecogniz ed section [...] Reason Comments Psychiatric Evaluation Being transported from [facility] to [facility] in [place] for behavioral, anxiety and depression. En route patient became aggressive and confused so the snaker tractor driver came here for emergency assistance. Word salad upon admission to this ED, unable to communicate clearly or answers questions. Denies etoh or drug use at this time. Random words being continuously spoken. Reason Onset Date Comments Refill Request 05/08/2023 Reason Comments Other Chronic pancreatitis K86.1 Specialty Diagnoses / Procedures Referred By Contac t Referred To Contact Diagnoses Other chronic pancreatitis (CMS/HCC) [place] [address] [facility] Department of Emergency Medicine [place] [id number] [place] [address] [place] [address] Referral ID Status Reason Start Date Expiration Date Visits Re quested Visits Authorized [id number] 1 1 Reason Onset Date Comments Refill Request 06/27/2023 Reason Comments Hospital Follow-up necrotizing pancreatitis Specialty Diagnoses / Procedures Referred By Contac t Referred To Contact Radiology Diagnoses Poor intravenous access Procedures IR CVC port placement Consult to Interventional Radiology Tianna Rasmussen MD [address] [place] [address] Referral ID Status Reason Start Date Expiration Date Visits Requested Visits Authorized [id number] Authorized Perform Procedure 3 08/09/2024 1 1 Specialty Diagnoses / Procedures Referred By Contac t Referred To Contact Radiology Diagnoses Poor intravenous access Procedures IR CVC check IR CVC port placement Shantell Rossi, LOCOMOTIVE INSPECTOR-RAIL ASSEMBLER [address] [place] [address] Referral ID Status Reason Start Date Expiration Date Visits Requested Visits Authorized [id number] Authorized Perform Procedure 10/07/2023 10/06/2024 1 1 Reason Comments Follow-up Follow-up for 5 IV i nfusion therapy treatments Specialty Diagnoses / Procedures Referred By Contac t Referred To Contact Radiology Diagnoses Chronic pancreatitis, unspecified pancreatitis type (CMS/HCC) Procedures MRCP pancreas w [place] [address] [facility] Department of Medicine-Gastroenterology [place] [id number] Referral ID Status Reason Start Date Expiration Date Visits Requested Visits Authorized [id number] Authorized Perform Procedure 10/12/2023 10/11/2024 1 1 Reason Comments Abdominal Pain Specialty Diagnoses / Procedures Referred By Contac t Referred To Contact Diagnoses Pseudocyst of pancreas Procedures No coded services entered Nancy Benedict, LOCOMOTIVE INSPECTOR-RAIL ASSEMBLER [address] [facility] [address] [place] [address] [facility] [address] [place] [address] Referral ID Status Reason Start Date Expiration Date Visits Re quested Visits Authorized [id number] 1 1 Specialty Diagnoses / Procedures Referred By Contact Referred To Contact Gastroenterology Diagnoses Other chronic pancreatitis (CMS/HCC) Procedures EGD w Fluoro HI ESOPHAGOGASTRODUODENOSCOPY TRANSORAL DIAGNOSTIC HI EGD TRANSORAL BIOPSY SINGLE/[place] [address] [address] [facility] Department of [place] [address] Referral ID Status Reason Start Date Expiration Date V isits Requested Visits Authorized [id number] Authorized 11/15/2023 11/14/2024 1 1 Reason Comments [...] Pain Specialty Diagnoses / Procedures Referred By Lester almaraz Referred To Contact Diagnoses Pulmonary embolism on right (Multi) Idiopathic chronic pancreatitis (Multi) Procedures No coded services entered Brea Nolen MD [address] [place] [address] [facility] [address] [place] [address] Referral ID Status Reason Start Date Expiration Date Visits Re quested Visits Authorized [id number] 1 1 Reason Comments Abdominal Pain Amb to ED with c/o a bd pain. She reports that she had a bloody nose this am and then started having emesis with blood in it. She is on Coumadin for a PE. EKG done at Reason Comments Vaginal Problem Specialty Diagnoses / Procedures Referred By Lester almaraz Referred To Contact Gynecology / FINISHED CLOTH EXAMINER Diagnoses check painful spot Procedures EST WHI PATIENT Self Laury Orr APRN.RAIL ASSEMBLER [address] [place] [address] Referral ID Status Reason Start Date Expiration Date Visits Re quested Visits Authorized [id number] Closed 06/08/2024 09/06/2024 1 1 Reason Comments Patient Update Reason Comments Urinary Problem Frequency, burning x 3 weeks Care Teams (unrecognized sec tion and content) Tobacco Stripper Relationship Specialty Start Date End Date Cj Rivera CNP [address] [place] [address] PCP - General Family Practice 03/05/20 Tobacco Stripper Relationship Specialty Start Date End Date Cj Rivera CNP [address] [place] [address] PCP - General Family Practice 03/05/20 Tobacco Stripper Relationship Specialty Start Date End Date Cj Rivera CNP [address] [place] [address] PCP - General Family Practice 03/05/20 Tobacco Stripper Relationship Specialty Start Date End Date Cj Rivera CNP [address] [place] [address] PCP - General Family Medicine 03/05/20 Tobacco Stripper Relationship Specialty Start Date End Date Cj Rivera CNP [address] [place] [address] (Work) PCP - General Family Medicine 03/05/20 Tobacco Stripper Relationship Specialty Start Date End Date Cj Rivera CNP [address] [place] [address] PCP - General Family Medicine 03/05/20 Tobacco Stripper Relationship Specialty Start Date End Date Cj Rivera CNP [address] [place] [address] (Work) PCP - General Family Medicine 03/05/20 Tobacco Stripper Relationship Specialty Start Date End [place] Sharla Zamorano [place] [id number] [place] [address] PCP - General 01/07/16 Tobacco Stripper Relationship Specialty Start Date End Date Cj Rivera CNP [address] [place] [id number] (Work) PCP - General Family Medicine 03/05/20 Tobacco Stripper Relationship Specialty Start Date End Date Cj Rivera CNP [address] [place] [address] (Work) PCP - General Family Medicine 03/05/20 Tobacco Stripper Relationship Specialty Start Date End Date Cj Rivera APRN-HAMLET [address] [place] [address] [place] [address] PCP - General 04/03/23 Tobacco Stripper Relationship Specialty Start Date End Date Cj Rivera APRN-CNP [address] [place] [address] PCP - General 04/03/23 Tobacco Stripper Relationship Specialty Start Date End Date Cj Rivera APRN-RAIL ASSEMBLER PCP - General 04/03/23 Tobacco Stripper Relationship Specialty Start Date End Date Cj Rivera APRN-RAIL ASSEMBLER PCP - General 04/03/23 [place] [address] [place] [facility] Medicine-Gastroenterology [place] [id number] Surgeon Gastroenterology 10/12/23 Tobacco Stripper Relationship Specialty Start Date End Date Cj Rivera APRN-RAIL ASSEMBLER PCP - General 04/03/23 [place] [address] [place] [facility] [place] [address] Surgeon Gastroenterology 10/12/23 Tobacco Stripper Relationship Specialty Start Date End Date Cj Rivera APRN-RAIL ASSEMBLER PCP - General 04/03/23 [place] [address] [address] [facility] [place] [address] Surgeon Gastroenterology 10/12/23 Tobacco Stripper Relationship Specialty Start Date End Date Cj Rivera APRN-RAIL ASSEMBLER PCP - General 04/03/23 Colton Hicks MD [address] [place], [place] [address] [address] Surgeon Gastroenterology 10/12/23 Tobacco Stripper Relationship Specialty Start Date End Date Cj Rivera APRN-RAIL ASSEMBLER PCP - General 04/03/23 Colton Hicks MD [address] [place], [place] [id number] Surgeon Gastroenterology 10/12/23 Tobacco Stripper Relationship Specialty Start Date End Date Cj Rivera APRN-RAIL ASSEMBLER PCP - General 04/03/23 Colton Hicks MD [address] [place], [place] [address]Gastroenterology [place] [phone] Surgeon Gastroenterology 10/12/23 Tobacco Stripper Relationship Specialty Start Date End Date Cj Rivera APRN-RAIL ASSEMBLER PCP - General 04/03/23 Colton Hicks MD [address] [place] [address] Surgeon Gastroenterology 10/12/23 Tobacco Stripper Relationship Specialty Start Date End Date LorCj agosto APRN-CNP PCP - General 04/03/23 [place] [address] [facility] [facility] [place] [address] Surgeon Gastroenterology 10/12/23 Tobacco Stripper Relationship Specialty Start Date End Date Cj Rivera APRN-CNP [address] [place] [address] PCP - General Family Medicine 02/15/24 [place] [address] [facility] [place] [address] Surgeon Gastroenterology 10/12/23 Tobacco Stripper Relationship Specialty Start Date End Date Cj Rivera APRN-CNP [address] [place] [address] PCP - General Family Medicine 02/15/24 Colton Hicks [place] [address] [place] [address] [place] [address] Surgeon Gastroenterology 10/12/23 Tobacco Stripper Relationship Specialty Start Date End Date Cj Rivera APRN-CNP [address] [place] [address] PCP - General [facility] Medicine 02/15/24 [place] [address] [facility] [place] [address] Surgeon Gastroenterology 10/12/23 Tobacco Stripper Relationship Specialty Start Date End Date Cj Rivera CNP [address] [place] [id number] PCP - General Family Medicine 03/05/20 Tobacco Stripper Relationship Specialty Start Date End Date Cj Rivera CNP [address] [place] [phone] PCP - General Family Medicine 03/05/20 Tobacco Stripper Relationship Specialty Start Date End Date Cj Rivera CNP [address] [place] [id number] PCP - General Family Medicine 03/05/20 Care Team (unrecognized sect ion and content) Personnel Name: CJ RIVERA APRN-RAIL ASSEMBLER Address: Address: [address] [place] [address]- Care Team Personnel Name: CJ RIVERA APRN-RAIL ASSEMBLER Position: P4 Advanced Practice Nurse Med Service: Active Provider Member Role: Primary Care Physician Address: Address: [address] [place] [address] Care Team Related Persons Name: LIZZ DOCKERY Name: LIZZ DOCKERY Name: LIZZ DOCKERY Address: [address] [id number] Address: Home [address] [place], [place] [id number] [place] Address: Temporary [address] [place], [place] [phone] Care Team Personnel Name: CJ RIVERA LOCOMOTIVE INSPECTOR-RAIL ASSEMBLER Position: P4 Advanced Practice Nurse Med Service: Active Provider Member Role: Primary Care Physician Address: Address: [address] [place] [address] Care Team Related Persons Name: LIZZ DOCKERY Name: LIZZ DOCKERY Name: LIZZ DOCKERY Address: Alternate [address] [place], [place] [id number] Address: Home [address] [place], [place] [id number] [place] Address: Temporary [address] [place], [place] [id number] Care Team Personnel Name: CJ RIVERA APRN-RAIL ASSEMBLER Position: P4 Advanced Practice Nurse Med Service: Active Provider Member Role: Primary Care Physician Address: Address: [address] [place], [place] [address] Care Team Related Persons Name: LIZZ DOCKERY Name: LIZZ DOCKERY Name: LIZZ DOCKERY Address: Alternate [address] [place], [place] [id number] Address: Home [address] [place], [place] [phone] [place] Address: Temporary [address] [place], [place] [id number] Care Team Personnel Name: CJ RIVERA LOCOMOTIVE INSPECTOR-RAIL ASSEMBLER Position: P4 Advanced Practice Nurse Member Role: Primary Care Physician Address: Address: [address] [place] [phone]- Name: ANGLE PUENTES DO Position: Resident Member Role: Resident Address: Address: [address] [place] [address] [place] [address]- Name: YESSICA DIAZ PA-C Position: ED Physician Heel Compressor Member Role: ED PA Address: Address: [address] [place] [address] [place] [address]- Name: [place] Redmond RN Position: ED RN Member Role: ED RN Name: WAQAR BOYLE MD Position: ED Physician Member Role: Attending Physician Address: Address: [address] [place] [address] [place] [address]- Care Team Related Persons Name: LIZZ DOCKERY Name: LIZZ DOCKERY Name: LIZZ DOCKERY Address: Alternate [address] [place], [place] [id number] Address: Home [address] [place], [place] [id number] [place] Address: Temporary [address] [place] [id number] Care Team Personnel Name: CJ RIVERA LOCOMOTIVE INSPECTOR-RAIL ASSEMBLER Position: P4 Advanced Practice Nurse Member Role: Primary Care Physician Address: Address: [address] [facility] [place] [address]- Name: Stormy Slaazar RN Position: AO RN Member Role: RN Name: SMITHA MARTÍNEZ MD Position: Resident Member Role: Resident Address: Address: [address] [place] [address]- [place] Name: YOANA WEAVER MD Position: ED Physician Member Role: ED Physician Address: Address: [facility] [address] [place] [address]- [place] Name: KAY Botello Position: AO RN Member Role: ED RN Care Team Related Persons Name: LIZZ DOCKERY Name: LIZZ DOCKERY Name: LIZZ DOCKERY Address: [address] [phone] Address: Home [address] [place], [place] [id number] [place] Address: Temporary [address] [place] [phone] Care Team Personnel Name: CJ RIVERA LOCOMOTIVE INSPECTOR-RAIL ASSEMBLER Position: P4 Advanced Practice Nurse Member Role: Primary Care Physician Address: Address: [address] [place] [address]- Name: Dary Silveira Position: P3 Registration- Inspector Wire Rope Name: MOLINA QUIROZ DO Position: ED Physician Member Role: Attending Physician Address: Address: [address] [facility] [place] [address]- [place] Name: Chester Redmond RN Position: ED RN Member Role: ED RN Name: KALE FLORES PAGeoC Position: ED Physician Heel Compressor Member Role: ED PA Address: Address: [address] [place] [address]- [place] Name: RESHMA GAGE MD Position: Resident Member Role: Resident Address: Address: [address] [facility] [place] [address]- [place] Care Team Related Persons Name: LIZZ DOCKERY Name: LIZZ DOCKERY Care Team Personnel Name: CJ RIVERA LOCOMOTIVE INSPECTOR-RAIL ASSEMBLER Position: P4 Advanced Sub Assembly Team Worker Member Role: Primary Care Physician Address: Address: [address] Name: JULIANNE FLANNERY DO Position: Resident Member Role: Resident Address: Address: [facility] [address] [place] [address] Name: Thang Connors RN Position: RN Member Role: RN Name: COLTON BAE MD Position: ED Physician Member Role: Attending Physician Address: Address: [facility] [address] [place] [address] [address] Care Team Related Persons Name: LIZZ DOCKERY Name: LIZZ DOCKERY Care Team Personnel Name: CJ RIVERA Position: P4 Advanced Sub Assembly Team Worker Member Role: Primary Care Physician Address: Address: [address] [place] [address] Name: JULIANNE FLANNERY DO Position: Resident Member Role: Resident Address: Address: [facility] [address] [place] [address] Name: ADINA WHITT MD Position: ED Physician Member Role: ED Physician Address: Address: [facility] [address] [place] [address] Care Team Related Persons Name: LIZZ DOCKERY [...] mg (COMPLETED) 5 mg, IntraMUSCular, Once, On 04/30/23 at 0025, For 1 dose 0032 (Given - Provid er: Caron Saucedo RN) haloperidol lactate (Haldol) injection 5 mg (COMPLETED) 5 mg, IntraMUSCular, Once, On Tue04/29/23 at 2340, For 1 dose, IM route of administration preferred. Because of the risk of TdP and QT prolongation, ECG monitoring is recommended if haloperidol is given IV 234 (Given - Provider: Caron Saucedo RN) LORazepam [...] - Provider: Socorro Taylor RN)2100 (Due) pancrelipase (Lxn-Kpha-Ezxr) (Creon) 12,000-38,000 -60,000 unit per capsule 3 [...] dose unavailable) 1000 (Given - Provider: Nay Chapman RN)2100 (Due) divalproex (Depakote) EC tablet 250 mg 250 mg, oral, 2 times daily, First dose on Tue11/11/23 at 0020, Do not crush, chew, or split. 0914 (Given - Provider: Hanna Dey RN)2046 (Given - Provider: Nadiya Agrawal RN) 1536 (Given - Provider: Cherry Dickey, KAY)2229 (Given - Provider: Nadiya Agrawal RN) 1000 [...] Chapman RN)2030 (Due - Provider: Ivon Davey [facility]) lactulose 20 gram/30 mL oral solution 20 [...] at 0615, Apply to bilateral inguinal region 0900 (Due)2048 (Given - Provider: Nadiya Agrawal RN) 0900 (Not Given - Provider: Cherry Dickey RN - Reason: Patient not available)2243 (Given - Provider: Nadiya Agrawal RN - Comment: pt refused) 1000 (Given - Provider: Nay Chapman RN)2100 (Due) pancrelipase (Cuz-Mgcw-Gglz) (Creon) 12,000-38,000 -60,000 unit per capsule 2 [...] Hanna Dey RN)1700 (Not Given - Provider: Hanna Dey RN - Reason: Patient/family refused) 0800 (Not Given - Provider: Cherry Dickey RN - Reason: NPO)1200 (Not Given - Provider: Cherry Dickey RN - Reason: Patient/family refused)1700 (Not Given [...] chew. 1534 (Given - Provider: Cherry Dickey, RN) rivaroxaban (Xarelto) tablet 10 mg 10 mg, [...] Provider: Chastity León MD)1755 (Given - Provider: aNy Chapman, KAY) valACYclovir (Valtrex) tablet 500 mg 500 mg, oral, Daily, First dose on Tue11/11/23 at 0900, Coverage: Herpes simplex, Infection Site: Genital 0914 (Given - Provider: Hanna Dey, KAY) 1532 (Given - Provider: Cherry Dickey, KAY) 1000 (Given - Provider: Nay Chapman, KAY) venlafaxine XR (Effexor-XR) 24 hr capsule 225 [...] 0800 (Not Given - Provider: Cherry Dickey, KAY - Reason: See Provider Order) 0800 (Dose [...] RN)0552 (New Bag - Provider: Nadiya Agrawal RN)2227 (New Bag - Provider: Nadiya Agrawal RN)2356 [...] 2047 (Given - Provider: Nadiya Agrawal RN) 2126 (Given - Provider: Nadiya Agrawal RN) 0340 [...] mg/dL and no IV access, Starting on Celeste 11/10/23 at 2316, Give until blood glucose is 100 mg/dL or greater. If patient DOES NOT HAVE secure IV access & patient is unconscious, NPO or is unable to eat or drink. heparin flush 100 unit/mL syringe 500 Units (COMPLETED) 500 Units (5 mL), intra-catheter, As needed, line care, Starting on Tue11/15/23 at 1728, For 1 dose 1811 (Given - Provider: Cici Jerez, RN) HYDROmorphone (Dilaudid) injection 1 mg (CANCELED) 1 [...] per MD Rea)1352 (Given - Provider: Cherry Dickey, KAY)1803 (Given - Provider: Cherry Dickey RN)2232 (Given [...] hours PRN, nausea/vomiting, first line, Starting on Tue11/13/23 at 1723 2310 (New Bag - Provider: [...] Bae RN) 0841 (Given - Provider: Caroline Jacobo, KAY)1502 (Given - Provider: Caroline Jacobo, KAY)1931 (Given - Provider: Kenneth Paredes, KAY) 0829 (Given - Provider: Carol Méndez, RN)1445 (Given - Provider: Carol Méndez, RN)2100 (Due) ARIPiprazole (Abilify) tablet 10 mg 10 mg, oral, Daily, First dose on Tue12/05/23 at 1430 1026 (Given - Provider: Chanda Nunn RN - Comment: Jovany burris - d/t NPO) 0843 (Given - Provider: Caroline Jacobo RN) 0829 (Given - Provider: Carol Méndez, KAY) ascorbic acid (Vitamin C) tablet 1,000 mg 1,000 mg, oral, Nightly, First dose on Tue12/05/23 at 2100 2136 (Not Given - Provider: Penny Bae RN - Reason: Patient/family refused) 2100 (Not Given - Provider: Kenneth Paredes RN - Reason: Patient/family refused) 2100 (Due) benztropine (Cogentin) tablet 0.5 mg 0.5 mg, oral, 2 times daily, First dose on Tue12/05/23 at 1430 1028 (Given - Provider: Chanda Nunn RN - Comment: NPO)2136 (Given - Provider: Penny Bae RN) 0841 (Given - Provider: Caroline Jacobo, KAY)2137 (Given - Provider: Kenneth Paredes, KAY) 0828 (Given - Provider: Carol Méndez RN)2100 (Due) divalproex (Depakote) EC tablet 250 mg 250 mg, oral, 2 times daily, First dose on Tue12/05/23 at 1430, Do not crush, chew, or split. 1027 (Given - Provider: Chanda Nunn RN - Comment: npo)2135 (Given - Provider: Penny Bae RN) 0844 (Given - Provider: Caroline Jacobo, KAY)2136 (Given - Provider: Kenneth Paredes, KAY) 08 (Given - Provider: Carol Méndez RN)2099 (Due) enoxaparin (Lovenox) syringe 100 mg 100 mg (rounded from 104 mg = 1 mg/kg 104 kg), subcutaneous, User specified (2 times per day), First dose (after last modification) on Tue12/07/23 at 2230 2209 (Given - Provider: Kenneth Paredes, KAY) 08 (Given - Provider: Carol Méndez, KAY)1999 (Due) famotidine (Pepcid) tablet 20 mg (COMPLETED) 20 mg, oral, Once, On Tue12/06/23 at 1600, For 1 dose 1649 (Given - Provider: Selena Voss) fenofibrate (Triglide) tablet 160 mg 160 mg, oral, Daily, First dose on Tue12/05/23 at 1430 1031 (Given - Provider: Chanda Nunn RN - Comment: npo) 0843 (Given - Provider: Caroline Jacobo, KAY) 0829 (Given - Provider: Carol Méndez, RN) furosemide (Lasix) tablet 40 mg 40 [...] Reason: Patient/family refused)2137 (Given - Provider: Kenneth Paredes, KAY) 0623 (Given - Provider: Kenneth Paredes, KAY)1430 (Given - Provider: Carol Méndez RN)2230 (Due) pancrelipase (Rqc-Msxf-Ustg) (Creon) 12,000-38,000 -60,000 unit per capsule 2 capsule 2 capsule, oral, 3 times daily with meals, First dose on Tue12/05/23 at 1700, Administer whole with food and [...] Reason: Other) 0829 (Given - Provider: Carol Méndez, KAY) potassium chloride 20 mEq in 100 mL IV premix (COMPLETED) 20 mEq, intravenous, at 50 mL/hr, Administer over 2 Hours, Every 2 hours, First dose on Tue12/07/23 at 0815, For 2 doses, Total dose is 40 mEq via peripheral line. 1127 (New Bag - Provider: Caroline Jacobo, RN)1327 (Stopped - Provider: Caroline Jacobo RN)1347 (New Bag - Provider: Caroline Jacobo, KAY)1547 (Stopped - Provider: Caroline Jacobo RN) potassium chloride CR (Klor-Con M20) ER tablet 20 mEq 20 mEq, oral, Daily, First dose on Tue12/06/23 at 1730, Best given with food and a glass of water to minimize gastric irritation. Do not crush or chew. 1710 (Given - Provider: Selena Voss) 0841 (Given - Provider: Caroline Jacobo RN) 0829 (Given - Provider: Carol Méndez, RN) sennosides (Senokot) tablet 17.2 mg (COMPLETED) 17.2 mg (2 tablet), oral, Once, On Tue12/08/23 at 0800, For 1 dose 0829 (Given - Provider: Carol Méndez, RN) valACYclovir (Valtrex) tablet 500 mg 500 mg, oral, Daily, First dose on Tue12/05/23 at 1430, Coverage: Virus NOS, Coverage: Historical med, Infection Site: Other, Specify: historical med 1028 (Given - Provider: Chanda Nunn RN - Comment: npo) 0842 (Given - Provider: Caroline Jacobo RN) 0829 (Given - Provider: Carol Méndez, RN) venlafaxine XR (Effexor-XR) 24 hr capsule 150 mg 150 mg, oral, Daily, First dose on Tue12/05/23 at 1430, Capsule may be swallowed whole, or may be opened and its contents sprinkled on applesauce if consumed immediately without chewing. Do not crush or chew. 1026 (Given - Provider: Chanda Nunn RN - Comment: npo) 0841 (Given - Provider: Caroline Jacobo RN) 0828 (Given - Provider: Carol Méndez, [...] 0843 (Given - Provider: Caroline Jacobo RN) 0830 (Given - Provider: Carol Méndez, RN) Continuous Medication Order 12/06/2023 12/07/2023 12/08/2023 heparin [...] Nunn RN) 0052 (Rate/Dose Change - Provider: Penny Bae RN)0420 (Stopped - Provider: Penny Bae RN) PRN [...] Kenneth Paredes RN)1213 (Given - Provider: Carol Méndez, KAY) heparin (porcine) injection 2,000-4,000 Units (CANCELED) 2,000-4,000 [...] at 1410 1546 (Given - Provider: Carol Méndez, KAY) hydrALAZINE (Apresoline) injection 5 mg 5 mg, [...] Kenneth Paredes RN)0623 (Given - Provider: Kenneth Paredes, KAY)1023 (Given - Provider: Carol Méndez, KAY)1445 (Given - Provider: Carol Méndez RN) ketamine (bulk) 100 % powder 1 puff 1 puff, inhalation, 4 times daily PRN, as needed, Starting on Tue12/05/23 at 1410 melatonin tablet 3 mg 3 mg, oral, Nightly PRN, sleep, Starting on Tue12/05/23 at 1410 2144 (Given - Provider: Penny Bae, KAY) 2137 (Given - Provider: Kenneth Paredes, KAY) [...] Selena Voss) 0550 (Given - Provider: Penny Bae RN)1622 (Given - Provider: Caroline Jacobo, KAY)2143 (Given [...] 2031 (Not Given - Provider: Belle Arechiga, KAY - Reason: Patient/family refused) 2099 (Due) benztropine (Cogentin) tablet 0.5 mg 0.5 mg, oral, 2 times daily, First dose (after last modification) on Tue02/29/24 at 1000 1000 (Not Given - Provider: Angela Romeo RN - Reason: Other - Comment: med given at 09)2309 (Given - Provider: Yaa Sow RN) 08 [...] RN) 0818 (Given - Provider: Angela Romeo RN)203 (Given - Provider: Belle Arechiga, RN) 0836 (Given - Provider: Yaa More RN)2099 (Due) doxepin (SINEquan) capsule 10 mg 10 mg, oral, Nightly, First dose on Tue02/28/24 at 2100 2308 (Given - Provider: Yaa Sow RN) 2032 (Given - Provider: Belle Arechiga RN) 2099 (Due) furosemide (Lasix) tablet 40 [...] 2032 (Given - Provider: Belle Arechiga, RN) 2100 (Due) methylnaltrexone (Relistor) injection 12 mg [...] per provider order due to BP) pancrelipase (Lsr-Bbjn-Uais) (Creon) 12,000-38,000 -60,000 unit per capsule 2 [...] Order) 0700 (Canceled Entry - Provider: Belle Arechiga RN - Comment: held by provider)1200 (Not Given - Provider: Dorothea Squires RN - Reason: See Provider Order)1700 (Dose Auto Held - Provider: Martha More, LOCOMOTIVE INSPECTOR-RAIL ASSEMBLER) pantoprazole (ProtoNix) EC tablet 40 mg 40 mg, oral, Daily before breakfast, First dose on Tue03/01/24 at 0700, Do not crush, chew, or split. 0800 (Not Given - Provider: Angela Romeo RN - Reason: Patient/family refused) 0700 (Given - Provider: Belle Arechiga RN) pantoprazole (ProtoNix) injection 40 mg (CANCELED) [...] Angela Romeo RN)2034 (Given - Provider: Belle Arechiga RN) 0836 (Given - Provider: Yaa More, [...] (Dose Auto Held - Provider: Camilo Prasad yair) Continuous Medication Order 02/29/2024 03/01/2024 03/02/2024 heparin [...] administration.)1837 (Rate/Dose Verify - Provider: Angela Romeo RN)2039 (New Bag - Provider: Yaa Sow RN) 0100 (Rate/Dose Verify - Provider: Yaa Sow RN)0611 (Rate/Dose Verify - Provider: Yaa Sow RN)0824 (Rate/Dose Verify - Provider: Angela Romeo RN)1030 (Rate/Dose Verify - Provider: Angela Romeo RN)1244 (Rate/Dose Verify - Provider: Angela Romeo RN)1442 (New Bag - Provider: Angela Romeo [...] RN)1338 (Rate/Dose Verify - Provider: Angela Romeo RN)1428 [...] RN)2043 (Given - Provider: Yaa Sow RN) 1634 (Canceled Entry - Provider: Angela Romeo RN) acetaminophen (Tylenol) tablet 650 mg(Linked Group 2) 650 mg, oral, Every 4 hours PRN, pain mild (1-3), first line, Starting on Tue02/28/24 at 0405, If ordered PRN for pain, nurse is permitted to administer this medication for higher pain scores based on patient preference? Yes 1119 (Given - Provider: Angela Romeo RN)1730 (Given - Provider: Angela Romeo RN) 1636 (Given - Provider: Angela Romeo RN) alum-mag hydroxide-simeth (Mylanta) 200-200-20 mg/5 mL oral suspension 10 mL 10 mL, oral, 4 times daily PRN, indigestion, heartburn, Starting on Tue03/01/24 at 1805 1819 (Given - Provider: Angela E Lamoda, RN) 0344 (Given - Provider: Belle Arechiga RN)1231 (Given - Provider: Yaa More, KAY) benztropine (Cogentin) tablet 0.5 mg (CANCELED) 0.5 mg, oral, 2 times daily PRN, EPS, Starting on Tue02/28/24 at 0405 0929 (Given - Provider: Angela Romeo, KAY) calcium carbonate (Tums) chewable tablet 500 mg 500 mg, oral, 3 times daily PRN, indigestion, heartburn, Starting on Tue02/29/24 at 2315 2344 (Given - Provider: Yaa Sow RN) 0212 (Given - Provider: Yaa Sow RN)1047 (Given - Provider: Angela Romeo, KAY)1436 (Given - Provider: Angela Romeo RN - [...] Angela Romeo, KAY)1726 (Given - Provider: Angela Romeo, KAY)2043 (Given - Provider: Yaa Sow RN)2343 (Given - Provider: Yaa Sow RN) 0248 (Given - Provider: Yaa Sow RN)0623 (Given - Provider: Yaa Sow RN)0924 (Given - Provider: Angela Romeo, KAY)1225 (Given - Provider: Angela Romeo RN) oxyCODONE [...] 0658 0456 (New Bag - Provider: Dianne Rodriguez RN)0511 (Stopped - Provider: Dianne Yoana, RN)1210 (New Bag - Provider: Angela Romeo RN)1225 (Stopped - Provider: Angela Romeo RN)1813 (New Bag - Provider: Angela Romeo RN)1828 (Stopped - Provider: Angela Romeo RN) 0212 (New Bag - Provider: Yaa Sow RN)0227 (Stopped - Provider: Yaa Sow RN)1147 (New Bag - Provider: Angela Romeo RN)1202 (Stopped - Provider: Angela Romeo RN)2034 (New Bag - Provider: Belle Arechiga, RN)204 (Stopped - Provider: Belle Arechiga, RN) 1246 [...] 650 mg, oral, Once, On Tue03/05/24 at 181, For 1 dose, If ordered PRN for pain, nurse is permitted to administer this medication for higher pain scores based on patient preference? Yes 1817 (Given - Provid er: Delicia Crawford RN) heparin flush 100 unit/mL syringe 500 Units (COMPLETED) 500 Units (5 mL), intravenous, Once, On Tue03/05/24 at 1840, For 1 dose 184 (Given - Provid er: Snow Christensen RN) [...] BE BASED ON THE PRIMARY CLINICAL RECORDS. [employer] [facility]. provides no warranty or guarantee of the accuracy or completeness of information in this document.
--- NOTE | 2024-06-16 18:53 | HP.PCM.HOS_ITS ---
[facility] - General General Date of Admission: 06/16/24 Date of Service: 06/16/24 Chief Complaint: Intractable back pain with mild shortness of breath HPI Narrative DOROTHEA RUTLEDGE, is a 48 F who presented to [facility] ED on 06/16/2024 with multiple concerns including worsening mid and lower back pain and mild shortness of breath with exertion. Patient has complicated past medical history. 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 She has history of chronic pancreatitis secondary to alcohol use and follows with pain management at for this. Also has history of opiate abuse. She has a right chest port in place and receives IV infusion therapy every 2 weeks for pain. Unclear from pain management notes in [facility] what medications she receives with these infusions. They are opiate sparing infusions. She does get intranasal ketamine with these infusions. She states her pancreas related pain has been fairly well-controlled for the past several months. However she has had lower back and flank pain that has been ongoing now for the past 2 to 3 weeks. She was diagnosed with a UTI during a previous ED visit and treated with p.o. antibiotics. Her dysuria has improved, however she has continued to have lower back pain and started having mid back pain about 1 week ago as well. She was prescribed tizanidine for muscle spasms but states this was only mildly helpful for her. She is on warfarin for history of VTE with factor V Leiden. Her INR has been subtherapeutic for about 1 to 2 months now due to a previous hospitalization in March. INR was 1.8 in the ED here. CTA chest here showed a distal right-sided PE. Patient notably has been stable on room air with oxygen saturations in the mid to high 90s. CTA chest and CT abdomen pelvis notably showed no concerns with her thoracic and lumbar spine. However, given her intractable back pain and PE with subtherapeutic INR, hospitalist was contacted for admission. I saw the patient at bedside in the ED, patient's mother was present as well. Patient was mildly distressed appearing due to ongoing back pain. She otherwise was laying back in bed and breathing comfortably on room air. Had lengthy discussion with patient at the bedside. I noted that given the PE was distal and she was stable on room air, I had lower concern that the PE was contributing much to her back pain. Noted that her back pain seems to be more musculoskeletal in origin. Because of this and her history of opiate abuse, noted that we will be very cautious with administering any opiate medications while she is here. She was understanding of this. She noted that she was concerned about the PE and wanted to stay on the heparin drip until her INR reached therapeutic range to prevent any worsening of her PE. Of note, had conversation with Dr. Yates and patient about considering transfer to for further management given she is established with pain management there. Dr. Yates called the transfer center but patient ultimately was rejected for transfer there. [facility] Medical History (Updated 06/16/24 @ 23:[address] Curtis Alonzo, DO) Diabetes Chronic pain Pancreatitis GI bleed Pulmonary embolism Smoker Acute on chronic pancreatitis Pancreatitis Chronic constipation Vitamin D deficiency Depression GERD (gastroesophageal reflux disease) DVT (deep venous thrombosis) Stroke/cerebrovascular accident Epilepsy Substance abuse History of CVA (cerebrovascular accident) Seizure disorder Presence of IVC filter Anxiety History of pulmonary embolus (PE) Factor V Leiden mutation Hyperlipidemia Hypertension Home Medications ?Medication ?Instructions ?Recorded ?Last Taken ?Type furosemide 40 mg tablet 40 mg PO DAILY water pill 09/10/16 06/16/24 History valacyclovir 500 mg tablet 500 mg PO DAILY herpes 10/25/18 06/16/24 History (Valtrex) linaclotide 290 mcg capsule 290 mcg PO DAILY bowels 05/28/21 06/16/24 History (Linzess) methenamine hippurate 1 gram 1 g PO QHS bladder infections 12/03/21 06/16/24 History tablet (Hiprex) venlafaxine 150 mg 150 mg PO DAILY mood 12/03/21 06/16/24 History capsule,extended release 24 hr (Effexor XR) cholecalciferol (vitamin D3) 1,250 50,000 unit PO FR supplement 02/05/23 06/15/24 History mcg (50,000 unit) capsule omeprazole 40 mg capsule,delayed 40 mg PO BID 02/23/23 06/16/24 History release fenofibrate nanocrystallized 145 145 mg PO QHS cholesterol 05/07/23 06/15/24 History mg tablet aripiprazole 10 mg tablet 10 mg PO DAILY MOOD 06/23/23 06/16/24 History benztropine 0.5 mg tablet 0.5 mg PO BID mood 06/23/23 06/16/24 History divalproex 250 mg tablet,delayed 250 mg PO Q12H 06/23/23 06/16/24 History release clonidine HCl 0.2 mg tablet 0.2 mg PO QHS 07/22/23 06/15/24 History metoprolol succinate 25 mg 25 mg PO DAILY heart health 07/22/23 06/16/24 History tablet,extended release 24 hr melatonin 10 mg tablet 5 mg PO QHS PRN sleep 08/17/23 06/15/24 History pen needle, diabetic 31 gauge x #100 ea 08/18/23 Unknown Rx 1/3 promethazine 25 mg tablet 25 mg PO TID PRN nausea and 10/23/23 06/16/24 Rx vomiting 7 days #21 tabs venlafaxine 75 mg capsule,extended 75 mg PO QDAY mood 01/19/24 06/16/24 History release 24 hr lactulose 10 gram/15 mL oral 15 ml PO BID PRN constipation 01/26/24 Unknown History solution nitrofurantoin 100 mg PO DAILY PRN after sex 01/26/24 Unknown History monohydrate/macrocrystals 100 mg capsule (Macrobid) potassium chloride 20 mEq 20 meq PO TID supplement 01/26/24 06/16/24 History tablet,extended release acetaminophen 500 mg tablet 1,000 mg (2 x 500 mg) PO Q8 #0 tabs 01/30/24 06/16/24 Rx insulin aspart U-100 100 unit/mL 18 unit subcut TID blood sugar 02/04/24 06/16/24 History (3 mL) subcutaneous pen (Novolog FlexPen U-100 Insulin aspart) insulin glargine U-300 conc 300 22 unit subcut DAILY diabetes 02/04/24 06/15/24 History unit/mL (3 mL) subcutaneous pen (Toujeo Max U-300 SoloStar) baclofen 10 mg tablet 10 mg PO TID 06/16/24 06/16/24 History clindamycin phosphate 1 % topical 1 applic topical BID 06/16/24 Unknown History gel ropinirole 0.5 mg tablet 0.5 mg PO BID 06/16/24 06/16/24 History tizanidine 4 mg tablet 4 mg PO Q8H PRN PRN muscle spasm 06/16/24 06/16/24 History warfarin 2.5 mg tablet 2.5 mg PO SUMOFRSA 06/16/24 06/16/24 History warfarin 2.5 mg tablet 3.75 mg PO 06/16/24 06/14/24 History zinc oxide 15 %-corn starch 81 % ea topical BID AFFECTED AREA 06/16/24 Unknown History topical powder (Caldesene) Allergy/AdvReac Type Severity Reaction Status Date / Time gabapentin (From Neurontin) Allergy Rash Verified 06/16/24 11:45 Penicillins Allergy Rash Verified 06/16/24 11:45 Sulfa (Sulfonamide Allergy Rash Verified 06/16/24 11:45 Antibiotics) topiramate (From Topamax) AdvReac Mild twitching Verified 06/16/24 11:45 of eyelids Family History Mother Hypertension Hyperlipidemia Father Heart disease Surgical History H/O: History of embolic filter insertion History of appendectomy Hx of cholecystectomy History of hysterectomy Social History household members: none Smoking Status: Current every day smoker tobacco type: e-cigarettes alcohol intake: former substance use type: marijuana ROS Constitutional Constitutional: Reports fatigue; Denies chills, fever(s) or weakness Eyes Eyes: Denies change in vision Cardiovascular Cardiovascular: Denies chest pain Respiratory/Chest Respiratory/Chest: Denies shortness of breath at rest Gastrointestinal Gastrointestinal: Denies abdominal pain, constipation, diarrhea, nausea or vomiting Genitourinary Genitourinary: Denies dysuria Musculoskeletal Musculoskeletal: Reports arthralgias and back pain; Denies myalgias or neck pain Neurologic Neurologic: Denies dizziness, focal weakness, headache(s), numbness, paresthesias or tingling Vital Signs Vital Signs Vital Signs: 06/16/24 11:31 06/16/24 13:30 06/16/24 15:00 Temperature 98.3 F Temperature Source Oral Pulse Rate 86 82 70 Respiratory Rate 16 16 17 Blood Pressure 129/80 H 123/74 H 117/70 Blood Pressure Mean 96 90 85 Pulse Ox 97 95 97 Oxygen Delivery Method Room Air Room Air Room Air Weight Weight: 102.467 kg Body Mass Index (BMI) 40.0 Physical Exam Const alert, oriented x3 and average body habitus Constitutional Narrative: Middle-age female, morbidly obese, laying in bed in mild distress due to ongoing back pain, otherwise conversing normally. General Appearance: cooperative HEENT normocephalic, head/scalp atraumatic, hearing grossly normal bilaterally, nasal mucous membranes and turbinates normal and moist oral mucous membranes Eyes PERRL, EOMs intact bilaterally and conjunctivae normal Neck full ROM Chest inspection of chest normal Resp normal respiratory effort, normal air movement, no use of accessory muscles and clear to auscultation bilaterally Cardio regular rate, regular rhythm, no murmurs and peripheral pulses 2+ throughout GI normal to inspection, nondistended, normoactive bowel sounds, soft to palpation, non-tender and non-distended Back/Spine normal ROM Back/Spine Narrative: Mild tenderness to palpation diffusely in paramuscular areas in thoracic and lumbar spine. Extremity normal to inspection, full ROM and no pedal edema Skin no rashes or lesions noted Neuro moves all extremities and no focal motor deficits Speech: speech normal Psych mental status grossly normal Mood & Affect: anxious Results Lab / Micro Data 06/16/24 13:07 06/16/24 13:07 Labs: Laboratory Results - last 24 hr 06/16/24 11:49: Urine Color Straw, Urine Clarity Clear, Urine pH 6.0, Ur Specific [place] 1.020, Urine Protein Negative, Urine Glucose (UA) Normal, Urine Ketones Negative, Urine Occult Blood Negative, Urine Nitrite Negative, Urine Bilirubin Negative, Urine Urobilinogen Normal, Ur Leukocyte Esterase Negative, Urine RBC 0 SEEN, Urine WBC 0-5 SEEN, Ur Squamous Epith Cells 0 SEEN, Urine Bacteria RARE, Urine Mucus 0 SEEN 06/16/24 13:07: WBC 7.5, RBC 4.69, Hgb 12.6, Hct 40.2, MCV 85.7, MCH 26.9 L, M CHC 31.3 L, RDW Std Deviation 51.1 H, RDW Coeff of Megan 16.4 H, Plt Count 313, MPV 8.7, Immature Gran % (Auto) 0.800, Neut % (Auto) 65.9, Lymph % (Auto) 24.1, [place] % (Auto) 6.6, Eos % (Auto) 1.5, Baso % (Auto) 1.1 H, Absolute Neuts (auto) 4.9, Absolute Lymphs (auto) 1.80, Nucleated RBC % 0, PT 20.9 H, INR 1.8, APTT 25.4, Sodium 138, Potassium 3.7, Chloride 105, Carbon Dioxide 25.0, Anion Gap 8, BUN 24 H, Creatinine 1.02, Estim Creat Clear Calc 74.83, Est GFR (MDRD) Af Amer 74, Est GFR (MDRD) Non-Af 61, BUN/Creatinine Ratio 23.5 H, Glucose 172 H, Calcium 9.3, Total Bilirubin 0.30, AST 31, ALT 72 H, Alkaline Phosphatase 135 H, Troponin I High Sens 5, Total Protein 8.0, Albumin 4.0, Globulin 4.0, Albumin/Globulin Ratio 1.0, Lipase 11 L 06/16/24 13:09: Lactic Acid 1.8 06/16/24 15:21: Troponin I High Sens 5 Imaging Radiology Impression Chest CTA 06/16/24 12:24 IMPRESSION: 2 peripheral branches of the right pulmonary artery with nonocclusive emboli/pulmonary embolism 1. Single nonocclusive thrombus in the peripheral branch supplying the right upper lobe see image #[id number] series 2. Nonocclusive thin wispy of thrombus adherent to the medial wall of the second peripheral branch supplying the middle one third aspect of the right upper lobe see image #[id number] series 2. No additional peripheral artery emboli. Normal bilateral right and left main pulmonary arteries and normal pulmonary trunk. No demonstrated heart strain or chamber enlargement or pericardial effusion. Electronically Signed: Taurus Acevedo MD at 15:27 EDT Reading Location ID and State: [address] [place] [address] , Service support , ADDENDUM: 06/16/24 1539 IMPRESSION: 2 peripheral branches of the right pulmonary artery with nonocclusive emboli/pulmonary embolism 1. Single nonocclusive thrombus in the peripheral branch supplying the right upper lobe see image #156/219 series 2. Nonocclusive thin wispy of thrombus adherent to the medial wall of the second peripheral branch supplying the middle one third aspect of the right upper lobe see image #154/[id number] series 2. No additional peripheral artery emboli. Normal bilateral right and left main pulmonary arteries and normal pulmonary trunk. No demonstrated heart strain or chamber enlargement or pericardial effusion. N.B. : The above Results were Read Back by Taurus Acevedo MD to Campos Rosales DO, and understanding confirmed on 06/16/2024 15:32:36 (ET). Electronically Signed: Taurus Acevedo MD at 15:27 EDT , ADDENDUM: 06/16/24 1552 IMPRESSION: undefined Abdomen/Pelvis CT 06/16/24 12:25 IMPRESSION: 1. No acute or significant process of the abdomen and pelvis. Electronically Signed: Taurus Acevedo MD at 15:44 EDT , Assessment & Plan Assessment/Plan (1) Pulmonary embolism: (2) Intractable back pain: PLAN: Plan Patient is a 48-year-old female who presented [facility] ED on 06/16/2024 with worsening back pain and mild shortness of breath. 1. Low risk PE, history of VTE with IVC filter placement, history of factor V Leiden on warfarin with subtherapeutic INR ? Admit under inpatient status to [facility]. CTA chest on admit showed single nonocclusive thrombus in peripheral branch of right upper lobe. Patient stable on room air and hemodynamically stable. INR 1.8, goal INR 2-3. Continue heparin drip for now, follow-up a.m. INR and resume warfarin when able. 2. Intractable back pain ? Unclear etiology for patient's back pain. CTA chest showed chronic degenerative thoracic spine changes. No lumbar spine changes noted on CT abdomen pelvis. Seems most likely musculoskeletal pain. Given history of opiate abuse, will plan to be very conservative with administering any opiate medications. Will treat with scheduled Tylenol, lidocaine patch, muscle relaxer as needed for now. Notably is on scheduled baclofen already. If patient's pain remains uncontrolled, can consider pain management consult. 3. History of chronic pancreatitis with chronic abdominal pain ? Follows with GI and pain management at . Abdominal pain has been well- controlled with opiate sparing IV infusions every 2 weeks. Lipase normal on admit and no new changes on CT abdomen pelvis. Continue outpatient follow-up after discharge. 4. Recent UTI with history of frequent UTIs ? UA on this admit very bland, not concerning for infection. CT abdomen pelvis with no hydronephrosis noted. Continue home methenamine. 5. Tobacco abuse ? Current smoker. Nicotine gum ordered per patient request. Encouraged cessation on discharge. Chronic medical conditions: ? Morbid obesity: BMI 40 on admit. Complicates hospital course, care and prognosis. ? Anxiety/depression/neuropathy: Continue home aripiprazole, benztropine, venlafaxine and ropinirole. ? Type 2 diabetes mellitus: Will treat with reduced regimen of Lantus 20 units daily and Humalog 8 units with meals plus sliding scale insulin. Adjust as needed. ? Seizure disorder: Continue home divalproex. ? GERD: Continue home PPI. ? Hyperlipidemia: Continue home fenofibrate. ? Hypertension: Continue home Lasix and Toprol. ? History of opiate and cannabis abuse ? History of alcohol abuse: Sober since 2013. Encouraged continued cessation. DVT prophylaxis: Not indicated, on heparin drip CODE STATUS: Full code, verified Expected disposition: Home, 2 to 3 days Total clinical time spent by myself addressing the patient's medical issues, reviewing all the data, and collaborating with patient's care team: 75 minutes. Charges/Coding Visit Charges Inpatient E&M: 60366 Init Hosp L3
[2024-06-16 18:54] VITALS: BP 120/77; PULSE 68; RESP 18; TEMP 36.7; O2SAT 96
--- OUTSIDE RECORDS SUMMARY | 2024-06-16 19:27 | XMS RPT_ITS | CCD ---
Author Organization [facility] CliniSyal Care Team Providers Care Body Worker Name Role Phone ARELIS HORTON Unavailable Unavailable [...] [facility] Unavailable Unavailable Colton Hicks Unavailable [phone] Tianna Rasmussen Unavailable Unavailable Sharla Zamorano MD Primary Care Provider SHARLA ZAMORANO Primary Care Unavailable LISBETH DAVIES Attending [facility]available [facility] Primary Care Provider Adelina Thompson Unavailable Unavailable Nicole Cj C Unavailable Unavailable Unavailable Chastity León Unavailable Unavailable [place]orson MANAGER PROFESSIONAL DEVELOPMENT-SPECIAL NEEDS TEACHER, [facility] Care Pr ovider L[facility]on MANAGER PROFESSIONAL DEVELOPMENT-SPECIAL NEEDS TEACHER, [facility] Pr ovider Lorson MANAGER PROFESSIONAL DEVELOPMENT-SPECIAL NEEDS TEACHER, [facility] Pr ovider Colton Hicks MD Unavailable DR MARGIE SOTO DO Primary Care Physician NANCY ARROYO MD Attending Unavailable [place] MANAGER PROFESSIONAL DEVELOPMENT-SPECIAL NEEDS TEACHER, [facility] Pr ovider YOANA WEAVER MD Attending Unavailable LORSON MANAGER PROFESSIONAL DEVELOPMENT-SPECIAL NEEDS TEACHER, [facility] Unavail able YOANA WEAVER MD Attending Unavailable LORSON MANAGER PROFESSIONAL DEVELOPMENT-SPECIAL NEEDS TEACHER, [facility] Unavail able LORSON MANAGER PROFESSIONAL DEVELOPMENT-SPECIAL NEEDS TEACHER, [facility] Unavail able ADIA KAHN, DR ALEXEY El Attending Unavailable ADINA WHITT MD Attending Unavailable LORSON MANAGER PROFESSIONAL DEVELOPMENT-SPECIAL NEEDS TEACHER, [facility] Unavail able LORSON MANAGER PROFESSIONAL DEVELOPMENT-SPECIAL NEEDS TEACHER, [facility] Unavail able WIN ALLRED MD Attending Unavailable YOANA WEAVER MD Attending Unavailable [place] MANAGER PROFESSIONAL DEVELOPMENT-SPECIAL NEEDS TEACHER, [facility] Unavail able BRITTANY KAHN, DR BLAIR Attending Unavailable [facility]ORSON MANAGER PROFESSIONAL DEVELOPMENT-SPECIAL NEEDS TEACHER, [facility] Unavail able SAWYER VASQUEZ, DR MONAE Attending Unavailab le LORSON MANAGER PROFESSIONAL DEVELOPMENT-SPECIAL NEEDS TEACHER, [facility] Unavail able BRITTANY KAHN, DR BLAIR Attending Unavailable LORSON MANAGER PROFESSIONAL DEVELOPMENT-SPECIAL NEEDS TEACHER, [facility] Primary Care Unavail able BRITTANY DO, DR BLAIR Attending Unavailable LORSON MANAGER PROFESSIONAL DEVELOPMENT-SPECIAL NEEDS TEACHER, [facility] Care Unavail able LORSON MANAGER PROFESSIONAL DEVELOPMENT-SPECIAL NEEDS TEACHER, JBER Attending Unavail able LORSON MANAGER PROFESSIONAL DEVELOPMENT-SPECIAL NEEDS TEACHER, JBER Primary Care Unavail able LORSON MANAGER PROFESSIONAL DEVELOPMENT-SPECIAL NEEDS TEACHER, JBER Attending Unavail able LORSON MANAGER PROFESSIONAL DEVELOPMENT-SPECIAL NEEDS TEACHER, [facility] Care Unavail able LORSON MANAGER PROFESSIONAL DEVELOPMENT-SPECIAL NEEDS TEACHER, JBER Primary Care Unavail able TORI VASQUEZ FACP, MOLINA Martinez Admitting Unavail able BORIS VASQUEZ, AYUSH Attending Unavailable RADU VASQUEZ, MATT Consulting Unavailable STARR VASQUEZ, DR LINH Purdy Consulting Johan CORRALES MD, DR SCHMID Consulting Unavail able BRITTANY DO, DR BLAIR Attending Unavailable BRITTANY DO, DR BLAIR Primary Care Unavailable BRITTANY DO, DR BLAIR Attending Unavailable LORSON MANAGER PROFESSIONAL DEVELOPMENT-SPECIAL NEEDS TEACHER, [facility] Care Unavail able BRITTANY DO, DR BLAIR Primary Care Unavailable BRITTANY DO, DR BLAIR Attending Unavailable LORSON MANAGER PROFESSIONAL DEVELOPMENT-SPECIAL NEEDS TEACHER, [facility] Care Unavail able LORSON MANAGER PROFESSIONAL DEVELOPMENT-SPECIAL NEEDS TEACHER, JBER Attending Unavail able LORSON MANAGER PROFESSIONAL DEVELOPMENT-SPECIAL NEEDS TEACHER, [facility] Care Unavail able TORI VASQUEZ FACP, MOLINA W Attending Unavail able TORI VASQUEZ FACP, MOLINA Martinez Consulting Unavail able EBONYDecember Admitting Unavailable [facility]on [facility], [facility] Provider HERMELINDA PRICE Attending Unavailable PAUL VIRGEN Primary Care Unavailable COLTON HICKS Attending Un[facility] SHANTELL ROSSI Referring Unavailable LORSON, [facility] Unavaila ble LORSON, [facility] Unavaila ble NANCY BENEDICT Admitting Unavailable BRITTANY RUIZ Consulting Unavailable CHASTITY LEÓN Attending Unavailable CHASTITY LEÓN Consulting Unavailable JARET MORA Consulting UnavailLYNN Youssef Referring Unavailable LORSON, [facility] Unavaila ble UVALDO CHAVEZ Referring Unavailable LORSON, [facility] Unavaila ble NANCY AGRAWAL Admitting Unavailable NANCY AGRAWAL Attending Unavailable UVALDO CHAVEZ Attending Unavailable UVALDO CHAVEZ Referring [facility] CHESTER CERVANTES Admitting Unavailable CHESTER CERVANTES Attending Unavailable LORSON, CJ [facility] Primary Care Unavaila ble NANCY AGRAWAL Referring Unavailable LORSON, CJ [facility] Unavaila ble KURTCOLOTN THOMPSON Admitting Unavailable RAMIROANA HARTMAN Referring Unavailab le [facility]ORSON, [facility] Unavaila ble ARIANNA OVALLE Attending Unava ilable COLTON HICKS Attending Unavailable STENTZ, PAUL Primary Care Unavailable ANGELA MILES Admitting Unavailable PANTHAM, CHASTITY T Attending Unavailable PANTHAM, CHASTITY T Referring Unavailable STENTZ, PAUL Primary Care Unavailable COLTON HICKS Attending Unavailable LORKELLIE, CJ [facility] Care Unavaila ble LORSON, CJ [facility] Care Unavaila ble TABBAA, KUTAIBA Referring Unavailable STENTZ, PAUL Primary Care Unavailable Nicole, Ms. Cj [facility] Unav ailable ANGELA MILES Admitting Unavailable Patient, Unavailable Referring Unavailable CASHAMCHASTITY Attending Unavailable TABBAA, KUTAIBA Referring Unavailable LORSON, CJ [facility] Care Unavaila ble KURT, COLTON T Referring Unavailable LORSON, CJ [facility] Care Unavaila ble TABBAA, KUTAIBA Referring Unavailable LORSON, CJ [facility] Care Unavaila ble TABBAA, KUTAIBA Referring Unavailable LORSON, CJ [facility] Care Unavaila ble TABBAA, KUTAIBA Referring Unavailable LORSON, CJ [facility] Care Unavaila ble MADELIN ALDANA Attending Unavailable STENTZ, PAUL Primary Care Unavailable TABBAA, KUTAIBA Referring Unavailable LORSON, CJ [facility] Primary Care Unavaila ble TABBAA, KUTAIBA Referring Unavailable LORSON, CJ [facility] Primary Care Unavaila ble TABBAA, KUTAIBA Attending Unavailable LORSON, CJ [facility] Primary Care Unavaila ble TABBAA, KUTAIBA Referring Unavailable LORSON, CJ [facility] Primary Care Unavaila ble TABBAA, KUTAIBA Referring Unavailable LORSON, CJ [facility] Primary Care Unavaila ble TABBAA, KUTAIBA Referring Unavailable STENTZ, PUAL Primary Care Unavailable TABBAA, KUTAIBA Attending Unavailable STENTZ, PAUL Primary Care Unavailable TABBAA, KUTAIBA Referring Unavailable STENTZ, PAUL Primary Care Unavailable TABBAA, KUTAIBA Referring Unavailable LORSON, CJ [facility] Primary Care Unavaila ble TABBAA, KUTAIBA Referring Unavailable STENTZ, PAUL Primary Care Unavailable STENTZ, PAUL Primary Care Unavailable MARAL GILLESPIE Attending Unavailable TABBAA, KUTAIBA Referring Unavailable STENTZ, PAUL Primary Care Unavailable TABBAA, KUTAIBA Referring Unavailable LORSON, [facility] Primary Care Unavaila ble TABBAA, KUTAIBA Referring Unavailable LORSON, C[facility] Primary Care Unavaila ble TABBAA, KUTAIBA Referring Unavailable LORSON, C[facility] Primary Care Unavaila ble TABBAA, KUTAIBA Referring Unavailable LORSON, CJ [facility] Primary Care Unavaila ble TABBAA, KUTAIBA Referring Unavailable LORSON, C[facility] Primary Care Unavaila ble TABBAA, KUTAIBA Attending Unavailable LORSON, CJ [facility] Primary Care Unavaila ble TABBAA, KUTAIBA Referring Unavailable LORSON, CJ [facility] Primary Care Unavaila ble MYRA CAROLINA Admitting Unavailable NAHID CRUZITO R Consulting Unavailable TAMANNA, HAFIZ A Attending Unavailable STENTZ, PAUL Primary Care Unavailable STENTZ, PAUL Primary Care Unavailable CRUZITO GARCIA R Consulting Unavailable TAMANNA, HAFIZ A Admitting Unavailable TAMANNA, HAFIZ A Attending Unavailable EL ANTOINE LAINEZRE Consulting Unavailable LORSON, CJ [facility] Primary Care Unavaila ble STENTZ, PAUL Primary Care Unavailable TAMANNA, HAFIZ A Referring Unavailable LORSON, CJ [facility] Primary Care Unavaila ble EL URBANO LAINEZ Admitting Unavailable EL FATOUURBANO JACOBSEN Attending Unavailable THOMMELISSA CRUZITO R Consulting Unavailable STENTZ, PAUL Primary Care Unavailable TAMANNA, HAFIZ A Referring Unavailable LORSON, CJ [facility] Primary Care Unavaila ble TAMANNA, HAFIZ A Referring Unavailable LORSON, CJ [facility] Primary Care Unavaila ble THANG [...] Allergy 7 Swelling, Rash, Nausea/vomiting , Other [facility] Comment on above: Replaced free text a llergy Replaced free text a llergy Penicillins (antibiotic) (2 sources) Penicillin; Translations: [penicillin] Drug Allergy 3 [facility] Comment on above: Replaced free text a llergy Replaced free text a llergy Sulfonamides (antibiotic) (2 sources) Sulfonamide; Translations: [sulfa drugs] Drug Allergy 4 Hives, Other, [facility] (6 sources) gabapentin; Translations: [GABAPENTIN] Drug Allergy 4 [facility] Repository (6 sources) Penicillins; Translations: [PENICILLINS] Drug allergy (disorder) 4 [facility] Repository (6 sources) Sulfonamides (Antibiotic); Translations: [SULFA (SULFONAMIDE ANTIBIOTICS)] Drug allergy (disorder) 4 [facility] Repository (5 sources) gabapentin; Translations: [Neurontin] Drug Allergy [facility] Repository (20 sources) morphine; Translations: [morphine] Drug Allergy 6 Other: See Comments, Hives, Other [facility] Repository Comment on above: Replaced free text a llergy (4 sources) penicillin; Translations: [penicillin] Drug Allergy [facility] Repository (3 sources) Sulfonamides (Antibiotic); Translations: [sulfa] Propensity to adverse reactions to drug (disorder) [facility] Repository (1 source) topiramate; Translations: [topamax] [facility] Penicillin Drug Allergy [facility] Repository (1 source) Sulfonamides (Antibiotic) Drug allergy (disorder) [facility] Repository (20 sources) gabapentin; Translations: [gabapentin] Drug Allergy 4 Intolerance, Swelling, Rash, Nausea/vomiting [facility] Comment on above: Replaced free text a llergy Replaced free text a llergy (20 sources) Penicillin; Translations: [penicillin] Drug Allergy Rash [facility] Comment on above: Replaced free text a llergy Replaced free text a llergy (20 sources) Sulfonamides (Antibiotic); Translations: [sulfa drugs] Drug allergy [facility] (1 source) Penicillins Drug Allergy 4 Intolerance [facility] Work Phone: (20 sources) Sulfonamides (Antibiotic) Drug Allergy 4 Intolerance, Hives, Unknown, Rash, Other [facility] Work Phone: (20 sources) Penicillins Drug Allergy 4 Intolerance, Rash [facility] Work Phone: (2 sources) Penicillin; Translations: [penicillin] Drug Allergy Rash [facility] Comment on above: Replaced free text a llergy Replaced free text a llergy (3 sources) Sulfonamides (Antibiotic) Rash [facility] (2 sources) Penicillins; Translations: [Penicillins] Allergy to drug (finding) [facility] Work Phone: (4 sources) Other; Translations: [OTHER] Propensity to adverse reactions 3 Rash [facility] Work Phone: (16 sources) topiramate; Translations: [TOPIRAMATE] Drug Allergy 7 Other [facility] Work Phone: Medications Current Medications [...] pcp, # 180 tab(s), 0 Refill(s), Pharmacy: [email or web address], 160, cm, 11/12/22 21:20:00 EST, Height, kg, 11/12/22 21:20:00 EST, Dosing Weight Start Date: 01/07/23 Status: Ordered Start: 10-15-2022 take 1 tablet by naomi every four hours as needed APAP/butalbital/caffeine 325-50-40 mg or al tablet (Fioricet) Dose = 1 tab(s), Oral, q4h, PRN as needed, # 30 tab(s), 3 Refill(s), Pharmacy: [facility], 160, cm, 10/18/22 12:11:00 EST, Height, kg, 10/19/22 11:32:00 EST, Dosing Weight Start Date: 11/10/22 Status: Ordered Start: 07-21-2022 End: 07-28-2022 take 1 capsule by mouth every four hours as needed acetaminophen/butalbital/caffeine 325 mg-50 mg-40 mg oral capsule 1-2 caps, Oral, q4h, PRN as needed for headache, X 7 day(s), # 30 cap(s), 0 Refill(s), Pharmacy: [facility], 160, cm, 06/17/22 20:28:00 EDT, Height Start Date: 07/21/22 Stop Date: 07/28/22 Status: Ordered Start: 06-17-2022 take 1 capsule by mo [facility] every four hours as needed acetaminophen/butalbital/caffeine [...] day(s), # 10 tab(s), 0 Refill(s), Pharmacy: [email or web address], 160, cm, 04/12/22 11:00:00 EDT, Height [...] every four hours as needed for pain [place] 325- 5 mg oral tablet Dose = [...] day(s), # 12 tab(s), 0 Refill(s), Pharmacy: [facility], Pancreatitis, 160, cm, 03/07/23 23:09:00 EDT, [...] PRN, indigestion, heartburn, Starting on [facility] 03/01/24 at 1805 amylase 88082 unt / lipase 15906 unt / protease 07030 unt delayed release oral capsule (20 sources) [...] tablets by mouth three times daily pancrelipase, Hbw-Opoi-Aghd, (Viokace) 20,880-78,300- 78,300 unit tablet Indications: Chronic pancreatitis, unspecified pancreatitis type (CMS/HCC) Take 2 tablets by mouth 3 times a day. 180 tablet 3 08/03/2023 12/01/2023 Active Start: 06-18-2023 pancrelipase ( Esj-Muea-Takf) (Creon) 12,000-38,000 -60,000 unit per capsule 3 capsule Start: 04-18-2023 take 1 capsule by [facility] four times daily Creon 36,000 units oral delayed release capsule 1 cap(s), Oral, QID, # 120 cap(s), 0 Refill(s) Start Date: 04/18/23 Status: Ordered Start: 04-09-2023 End: 10-11-2024 take 2 capsules by mouth three times daily at mealtime pancrelipase, Foo-Gqoq-Yhoz, (Creon) 12,000-38,000 -60,000 unit capsule Indications: Chronic [...] qDay, # 90 tab(s), 3 Refill(s), Pharmacy: [facility], 160, cm, 04/01/23 14:05:00 EDT, Height, [...] qDay, # 30 tab(s), 3 Refill(s), Pharmacy: [facility], 160, cm, 07/26/22 14:12:00 EST, Height Start Date: 07/26/22 Stop Date: 11/23/22 Status: Ordered Start: 05-26-2021 End: 11-22-2021 ARIPiprazole 10 mg oral tabl et Dose : 10 mg = 1 tab(s), Oral, BID, # 180 tab(s), 1 Refill(s), Pharmacy: [facility], 160, cm, 05/26/21 [...] eps, # 60 tab(s), 0 Refill(s), Pharmacy: [facility], 160, cm, 04/01/23 14:05:00 EDT, Height, [...] daily, # 1 EA, 0 Refill(s), Pharmacy: [facility], 160, cm, 08/09/23 13:03:00 EST, Height, [...] BID, # 180 tab(s), 1 Refill(s), Pharmacy: [facility], 160, cm, 07/02/21 [...] Tuesday, # 13 cap(s), 3 Refill(s), Pharmacy: [email or web address], 163, cm, 02/15/24 10:25:00 EDT, Height, kg, 02/15/24 10:25:00 EDT, Dosing Weight Start Date: 02/15/24 Stop Date: 02/09/25 Status: Ordered Start: 01-24-2023 End: 01-19-2024 cholecalciferol 1250 mcg (50 ,000 intl units) oral capsule Dose : 1,250 mcg = 1 cap(s), Oral, Tuesday, # 13 cap(s), 3 Refill(s), Pharmacy: [facility], 160, cm, 01/24/23 14:30:00 EDT, Height, kg, 01/24/23 14:30:00 EDT, Dosing Weight Start Date: 01/24/23 Stop Date: 01/19/24 Status: Ordered Start: 01-24-2023 End: 01-19-2024 cholecalciferol (Vitamin D-3 ) 1,250 mcg (50,000 unit) capsule Dose : 1,250 mcg = 1 cap(s), Oral, Tuesday, # 13 cap(s), 3 Refill(s), Pharmacy: [facility], 160, cm, [...] qWeek, # 12 cap(s), 0 Refill(s), Pharmacy: [email or web address], 160, cm, 04/12/22 11:00:00 EDT, Height, kg, 04/12/22 11:00:00 EDT, Dosing Weight Start Date: 04/12/22 Status: Ordered Start: 06-23-2021 cholecalcifero l 1250 mcg (50,000 intl units) oral capsule Dose : 1,250 mcg = 1 cap(s), Oral, qWeek, # 12 cap(s), 3 Refill(s), Pharmacy: [facility], 161, cm, 06/22/21 14:39:00 EDT, Height, kg, 06/22/21 14:39:00 EDT, Dosing Weight Start Date: 06/23/21 Status: Ordered Start: 06-23-2021 cholecalcifero l 1250 mcg (50,000 intl units) oral capsule Dose : 1,250 mcg = 1 cap(s), Oral, qWeek, # 12 cap(s), 3 Refill(s), Pharmacy: [facility], 161, cm, 06/22/21 14:39:00 EDT, Height, kg, 06/22/21 14:39:00 EDT, Dosing Weight Start Date: 06/23/21 Status: Ordered take 1 capsule by [facility] every week cholecalciferol (Vitamin D-3) 50,000 [...] qDay, # 90 tab(s), 1 Refill(s), Pharmacy: [facility], 160, cm, 01/02/24 14:52:00 EDT, Height, [...] qDay, # 90 tab(s), 1 Refill(s), Pharmacy: [facility], 160, cm, [...] BID, # 60 tab(s), 1 Refill(s), Pharmacy: [facility], 161, cm, 06/22/21 14:39:00 EDT, Height, [...] 04/28/2023 04/27/2024 Active Dextromethorphan (3 sources) Uncompetitive Y-zwclhb-T-asparta te Receptor Antagonist, Sigma-1 Agonist Start: 09-15-2023 take 1 dose by mouth every four hours as needed dextromethorphan 10 mg/5 mL oral syrup Dose : 10 mg = 5 mL, Oral, q4h, PRN as needed for cough, # 240 mL, 0 Refill(s), Pharmacy: [facility], 160, cm, 09/14/23 9:08:00 EST, Height, [...] at 2100 take 1 capsule by mo [facility] once daily at bedtime doxepin (SINEquan) [...] 0 Refill(s), 06/06/23 1:20:00 PM EDT, Pharmacy: [facility], 160, cm, 04/01/23 14:05:00 EDT, Height, [...] qDay, # 30 tab(s), 3 Refill(s), Pharmacy: [facility], 163, cm, 02/15/24 10:25:00 EDT, Height, kg, 02/15/24 10:25:00 EDT, Dosing Weight Start Date: 02/15/24 Status: Ordered Start: 10-17-2023 glipiZIDE 5 mg oral tablet, extended release Dose : 5 mg = 1 tab(s), Oral, qDay, # 30 tab(s), 3 Refill(s), Pharmacy: [facility], 160, cm, 09/14/23 9:08:00 EST, Height, [...] qDay, # 90 tab(s), 2 Refill(s), Pharmacy: [facility], 160, cm, [...] TIDAC, # 15 mL, 1 Refill(s), Pharmacy: [facility], 160, cm, 10/17/23 15:51:00 EST, Height, kg, 10/17/23 15:51:00 EST, Dosing Weight Start Date: 11/04/23 Status: Ordered Start: 09-30-2023 NovoLOG FlexPe n 100 units/mL injectable solution Dose : 5 unit(s) =, Subcutaneous, TIDAC, # 1 EA, 1 Refill(s), Pharmacy: [facility], 160, cm, 09/14/23 9:08:00 EST, Height, [...] qDay, # 4.5 mL, 2 Refill(s), Pharmacy: [facility], Diabetes, 163, cm, 02/15/24 10:25:00 EDT, Height, kg, 02/15/24 10:25:00 EDT, Dosing Weight Start Date: 02/15/24 Status: Ordered Start: 11-04-2023 inject 1 dose by sub cutaneous injection once daily Toujeo Max SoloStar 300 units/mL subcutaneous solution Dose : 55 unit(s) =, Subcutaneous, qDay, # 6 mL, 2 Refill(s), Pharmacy: [facility], 160, cm, 10/17/23 15:51:00 EST, Height, [...] qHS, # 15 mL, 0 Refill(s), Pharmacy: [facility], 160, cm, 09/14/23 9:08:00 EST, Height, [...] week, # 100 mL, 0 Refill(s), Pharmacy: [facility], 160, cm, 01/02/24 14:52:00 EDT, Height, [...] qDay, # 90 cap(s), 1 Refill(s), Pharmacy: [facility], 160, cm, [...] sent, # 90 cap(s), 3 Refill(s), Pharmacy: [facility] ([facility]), 162.5, cm, 02/11/22 18:32:00 EDT, Height, kg, 03/10/22 15:57:00 EDT, Dosing Weight Start Date: 04/05/22 Status: Ordered Start: 06-11-2021 Linzess 290 mc g oral capsule Dose : 290 mcg = 1 cap(s), Oral, qDay, Replaces 30 day rx sent, # 90 cap(s), 3 Refill(s), Pharmacy: [facility], 160, cm, 05/29/21 [...] BID, # 180 tab(s), 3 Refill(s), Pharmacy: [facility], 160, cm, 05/26/21 [...] qDay, # 30 tab(s), 3 Refill(s), Pharmacy: [facility], 160, cm, 03/23/23 11:55:00 EDT, Height [...] qHS, # 90 tab(s), 3 Refill(s), Pharmacy: [facility], 160, cm, 04/01/23 14:05:00 EDT, Height, kg, 06/03/23 15:06:00 EDT, Dosing Weight Start Date: 06/06/23 Stop Date: 05/31/24 Status: Ordered Start: 05-26-2021 End: 11-22-2021 mirtazapine 30 mg oral table t Dose : 30 mg = 1 tab(s), Oral, qHS, # 90 tab(s), 1 Refill(s), Pharmacy: [facility], 160, cm, 05/26/21 [...] 30 capsule 0 04/09/2023 04/08/2024 Active nystatin 352254 unt/ml oral suspension (17 sources) Polyene Antifungal Start: 02-09-20 take 5 mL by mouth four times daily nystatin 100,000 units/mL oral suspension See Instructions, take 5 (FIVE) mL orally FOUR times daily for 7 (SEVEN) days, # 140 mL, 0 Refill(s), Pharmacy: [facility], 160, cm, 01/02/24 14:52:00 EDT, Height, [...] BID, # 180 cap(s), 1 Refill(s), Pharmacy: [facility], 160, cm, 01/02/24 14:52:00 EDT, Height, [...] (4-6), first line, Starting on [facility] 03/01/24 at 1533, If ordered PRN [...] EC tablet 40 mg polyethylene glycol 3350 49658 mg powder for oral solution (9 sources) [...] gram(s), 1 Refill(s), 11/22/21 14:17:00 EST, Pharmacy: [facility], 160, cm, 05/26/21 [...] TID, # 270 tab(s), 1 Refill(s), Pharmacy: [facility], 160, cm, 01/02/24 14:52:00 EDT, Height, [...] TID, # 270 tab(s), 1 Refill(s), Pharmacy: [facility], 160, cm, 01/24/23 14:30:00 EDT, Height, kg, 01/24/23 14:30:00 EDT, Dosing Weight Start Date: 01/24/23 Stop Date: 07/23/23 Status: Ordered Start: 12-02-2022 potassium chlo ride 20 mEq oral tablet, extended release Dose : 20 mEq = 1 tab(s), Oral, TID, in lieu of provider absence, # 90 tab(s), 0 Refill(s), Pharmacy: [email or web address], 160, cm, 11/12/22 21:20:00 EST, Height [...] DAY, # 180 tab(s), 1 Refill(s), Pharmacy: [facility], 160, cm, 05/26/21 [...] BID, # 28 tab(s), 0 Refill(s), Pharmacy: [facility], 160, cm, 04/01/23 14:05:00 EDT, Height, [...] PCP, # 90 tab(s), 0 Refill(s), Pharmacy: [email or web address], 160, cm, 08/09/23 13:03:00 EST, Height, 99.3, kg, 08/09/23 13:03:00 EST, Dosing Weight Start Date: 09/01/23 Stop Date: 11/30/23 Status: Ordered Start: 06-18-2023 rivaroxaban (X arelto) tablet 10 mg Start: 01-24-2023 End: 07-23-2023 Xarelto 10 mg oral tablet Do se : 10 mg = 1 tab(s), Oral, qDay, # 90 tab(s), 1 Refill(s), Pharmacy: [facility], 160, cm, [...] qDay, # 90 tab(s), 3 Refill(s), [facility] [facility]), 162.5, cm, 02/11/22 18:32:00 EDT, Height, 90.9, kg, 02/11/22 18:32:00 EDT, Dosing Weight Start Date: 03/02/22 Status: Ordered take 6 tablets by [facility] once daily Xarelto 10 MG Oral [...] BID, # 180 tab(s), 1 Refill(s), Pharmacy: [facility], 160, cm, 01/24/23 14:30:00 EDT, Height, kg, 01/24/23 14:30:00 EDT, Dosing Weight Start Date: 01/24/23 Stop Date: 07/23/23 Status: Ordered Start: 10-11-2022 End: 12-10-2022 rOPINIRole 0.5 mg oral table t Dose : 0.5 mg = 1 tab(s), Oral, BID, # 60 tab(s), 1 Refill(s), Pharmacy: [facility], 160, cm, 07/26/22 14:12:00 EST, Height, kg, 07/27/22 9:16:00 EST, Dosing Weight Start Date: 10/11/22 Stop Date: 12/10/22 Status: Ordered Start: 07-14-2022 End: 09-12-2022 rOPINIRole 0.25 mg oral tabl et Dose : 0.25 mg = 1 tab(s), Oral, BID, # 60 tab(s), 1 Refill(s), Pharmacy: [facility], 160, cm, 06/17/22 20:28:00 EDT, Height Start Date: 07/14/22 Stop Date: 09/12/22 Status: Ordered Start: 02-06-2020 take 1 tablet by naomi th once daily rOPINIRole (REQUIP) 2 mg tablet See Instructions, TAKE 1 TABLET BY MOUTH DAILY, # 28 tab(s), 5 Refill(s), Pharmacy: [facility] - [id number], 161, cm, 02/06/20 14:12:00 EDT, Height, kg, [...] qDay, # 90 tab(s), 3 Refill(s), Pharmacy: [facility] (Now [facility]), 162.5, cm, 02/11/22 18:32:00 EDT, Height, kg, 02/11/22 18:32:00 EDT, Dosing Weight Start Date: 03/02/22 Status: Ordered Start: 09-17-2021 spironolactone 25 mg oral tablet Dose : 25 mg = 1 tab(s), Oral, qDay, # 30 tab(s), 1 Refill(s), Pharmacy: [facility], 160, cm, 09/09/21 12:16:00 EST, Height, kg, 09/09/21 12:16:00 EST, Dosing Weight Start Date: 09/17/21 Status: Ordered Start: 07-16-2021 spironolactone 25 mg oral tablet Dose : 25 mg = 1 tab(s), Oral, qDay, # 30 tab(s), 1 Refill(s), Pharmacy: [facility], 160, cm, 07/02/21 9:50:00 EDT, Height, kg, 07/02/21 10:03:00 EDT, Dosing Weight Start Date: 07/16/21 Status: Ordered Start: 06-23-2021 spironolactone 25 mg oral tablet Dose : 25 mg = 1 tab(s), Oral, qDay, # 30 tab(s), 0 Refill(s), Pharmacy: [facility], 161, cm, 06/22/21 14:39:00 EDT, Height, [...] qDay, # 90 cap(s), 1 Refill(s), Pharmacy: [facility], 160, cm, 01/02/24 14:52:00 EDT, Height, [...] mg/day., # 90 cap(s), 1 Refill(s), Pharmacy: [facility], 160, cm, [...] mg/day., # 90 cap(s), 1 Refill(s), Pharmacy: [facility], 160, cm, 01/24/23 14:30:00 EDT, Height, kg, 01/24/23 14:30:00 EDT, Dosing Weight Start Date: 01/24/23 Stop Date: 07/23/23 Status: Ordered Start: 10-20-2022 venlafaxine 22 5 mg oral tablet, extended release Dose : 225 mg = 1 tab(s), Oral, qDay, # 30 tab(s), 3 Refill(s), Pharmacy: [facility], 160, cm, 10/18/22 12:11:00 EST, Height Start Date: 10/20/22 Status: Ordered Start: 06-17-2022 venlafaxine 15 0 mg oral capsule, extended release Dose : 150 mg = 1 cap(s), Oral, qDay, # 30 cap(s), 0 Refill(s), Pharmacy: [facility], 160, cm, 11/12/22 21:20:00 EST, Height Start Date: 12/01/22 Status: Ordered Start: 10-23-2021 End: 01-21-2022 venlafaxine 150 mg oral caps ule, extended release Dose : 150 mg = 1 cap(s), Oral, qDay, one time refill in absence of PCP, # 90 cap(s), 0 Refill(s), Pharmacy: [facility], 160, cm, 09/22/21 22:52:00 EST, Height, kg, 09/22/21 22:52:00 EST, Dosing Weight Start Date: 10/23/21 Stop Date: 01/21/22 Status: Ordered Start: 05-26-2021 End: 01-21-2022 venlafaxine 150 mg oral caps ule, extended release Dose : 150 mg = 1 cap(s), Oral, qDay, one time refill in absence of PCP, # 90 cap(s), 0 Refill(s), Pharmacy: [facility], 160, cm, 09/22/21 [...] by mouth daily or as directed by [facility] 03/24/2024 04/18/2025 Active Start: 03-02-2024 take [...] clinic, # 90 tab(s), 3 Refill(s), Pharmacy: [facility], 160, cm, 05/26/21 [...] discomfort, # 90 tab(s), 1 Refill(s), Pharmacy: [facility], 160, cm, 05/26/21 [...] infusion (premix) Start: 12-05-2023 End: 12-07-2023 take 7622-6466 [IU] intravenously every four hours as needed [...] evening Quantity: 0 Refills: 0 Ordered: 03-Apr-2023 Irish, Christina Generic Substitution Allowed Comment on above: [...] 1 Refill(s), 03/02/24 3:34:00 PM EDT, Pharmacy: [facility], 160, cm, 01/02/24 14:52:00 EDT, Height, kg, 01/02/24 14:52:00 EDT, Dosing Weight Start Date: 01/02/24 Stop Date: 03/02/24 Status: Ordered Start: 01-24-2023 End: 07-23-2023 methenamine hippurate 1 g or al tablet Dose : 1 gram(s) = 1 tab(s), Oral, qDay, X 90 day(s), # 90 tab(s), 1 Refill(s), 07/23/23 2:55:00 PM EDT, Pharmacy: [facility], 160, cm, 01/24/23 14:30:00 EDT, Height, kg, 01/24/23 14:30:00 EDT, Dosing Weight Start Date: 01/24/23 Stop Date: 07/23/23 Status: Ordered Start: 06-29-2022 End: 12-26-2022 methenamine hippurate 1 g or al tablet Dose : 1 gram(s) = 1 tab(s), Oral, qDay, X 90 day(s), # 90 tab(s), 1 Refill(s), 12/26/22 13:32:00 EDT, Pharmacy: [facility], 160, cm, 06/17/22 20:28:00 [...] aftercare (1 source) Drug therapy finding; Translations: [[facility] (current) use of anticoagulants] 03-05-2024 Episodic Other [...] pyloric stenosis; Translations: [Adult hypertrophic pyloric stenosis ([facility])] Onset: 03-17-2024 Episodic Other ear and sense [...] (3 sources) 1 MONTH HOSP DSC FROM [place], CHRONIC PANCREATITIS NO CONSULT 04-08-2023 Comment on above: 1 MONTH HOSP DSC [facility], CHRONIC PANCREATITIS NO CONSULT Unclassified (1 source) HOSP DSC FROM [place] [address], CHRONIC PAIN FROM PANCREATITIS. DISCLAIMER ON DSC SUMMARY 04-08-2023 Comment on above: HOSP DSC FROM [place] [address], CHRONIC PAIN FROM PANCREATITIS. 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] Onset: 1 05-22-2021 [...] (POC)on 2023 BILIRUBIN UA (POCT) Negative Negative [facility] CLARITY UA (POCT) Clear [facility] COLOR UA (POCT) Yellow [facility] GLUCOSE UA (POCT) Negative Negative mg/dL [facility] Hemoglobin Ql (U) Negative Negative [facility] KETONE UA (POCT) Negative Negative mg/dL [facility] LEUKOCYTES UA (POCT) Negative Negative [facility] NITRITE UA (POCT) Negative Negative [facility] PH UA (POCT) 6.0 4.5 - 8.0 [facility] Protein Ql (U) Negative Negative mg/dL [facility] SPECIFIC GRAVITY UA (POCT) 1.025 1.005 - 1.030 [facility] UROBILINOGEN UA (POCT) 0.2 Normal E.U./dL [facility] Location: [place], [address], [place], [address] [facility] POINT OF CARE [facility] Ken 06-11-2024 MICHELLE Telephone (OBGYWM) MATYDOROTHEA Stanford ([id number]) 1975 F Date Time Provider Department 06/11/24 [...] DAILY, # 28 tab(s), 5 Refill(s), Pharmacy: [facility] [place] [id number], 161, cm, 02/06/20 14:12:00 EDT, Height, kg, [...] 05/21/2021 Gas (more content not included)... Normal [facility] Bacteria Wnd Culton 06-08-20 24 Bacteria identified Cx Nom (Wound) ORGANISM ID: [id number] Rare skin keron GRAM STAIN: No organisms seen No Polymorphonuclear Leukocytes Normal [facility] Comment on above: Performed By: #### 6 462-6 #### [facility] CLIA [id number] [address] [place] [address] [place] CNOVon 06-08-2024 CNOV Office Visit (OBGYWM ) DOROTHEA RUTLEDGE ([id number]) 1975 F Date Time Provider Department 06/08/24 2:30 PM LAURY ORR OBGYWM During your visit today, we recorded the following information about you: Blood pressure Weight 134/78 107.5 kg Laury Orr APRN.SPECIAL NEEDS TEACHER 06/08/2024 4:04 PM Signed Dorothea Stanford Maty [...] L2 SAB0 IAB0 Ectopic0 Multiple0 Live Births0 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 Normal [facility] CBC W Auto Differential pane l (Bld)on 06-04-2024 Basophils (Bld) [#/Vol] 0.07 x10*3/uL Normal 0.00-0.10 [facility] Comment on above: Performed By: #### 5 7021-8 ####IRVIN MUNGUIA ([id number])[facility] ([facility])[address] [place] [address] Basophils/100 WBC (Bld) 0.8 % Normal 0.0-2.0 [facility] Comment on above: Performed By: #### 5 7021-8 ####IRVIN MUNGUIA ([id number])[facility] ([facility])[address] [place] [address] Eosinophils (Bld) [#/Vol] 0.16 x10*3/uL Normal 0.00-0.70 [facility] Comment on above: Performed By: #### 5 7021-8 ####IRVIN MUNGUIA ([id number])[facility] ([facility])[address] [place] [address]84 Eosinophils/100 WBC (Bld) 1.8 % Normal 0.0-6.0 [facility] Comment on above: Performed By: #### 7021-8 ####IRVIN MUNGUIA ([id number])[facility] ([facility])[address] [place] [address] Erythrocyte distribution width (RBC) [Ratio] 15.9 % High 11.5-14.5 [facility] Comment on above: Performed By: #### 5 7021-8 ####IRVIN MUNGUIA ([id number])[facility] ([facility])[address] [place] [address] Hematocrit (Bld) [Volume fraction] 45.0 % Normal 36.0-46.0 [facility] Comment on above: Performed By: #### 5 7021-8 ####IRVIN MUNGUIA ([id number])[facility] ([facility])[address] [place] [address] 17024 Hemoglobin (Bld) [Mass/Vol] 13.7 g/dL Normal 12.0-16.0 [facility] Comment on above: Performed By: #### 5 7021-8 ####IRVIN MUNGUIA ([id number])[facility] ([facility])[address] [place] [address]65[address] Immature granulocytes (Bld) [#/Vol] 0.11 x10*3/uL Normal 0.00-0.70 [facility] Comment on above: Performed By: #### 5 7021-8 ####IRVIN MUNGUIA ([id number])[facility] ([facility])[address] [place] [address] 53982 Immature granulocytes/100 WBC (Bld) 1.2 % High 0.0-0.9 [facility] Comment on above: Result Comment: Debbie ture Granulocyte Count (IG) includes promyelocytes, myelocytes and metamyelocytes but does not include bands. Percent differential counts (%) should be interpreted in the context of the absolute cell counts (cells/UL). Performed By: #### 5 7021-8 ####IRVIN MUNGUIA ([id number])[facility] ([facility])[address] [place] [address] Lymphocytes (Bld) [#/Vol] 2.10 x10*3/uL Normal 1.20-4.80 [facility] Comment on above: Performed By: #### 5 7021-8 ####IRVIN MUNGUIA ([id number])[facility] ([facility])[address] [place] [address] Lymphocytes/100 WBC (Bld) 23.7 % Normal 13.0-44.0 [facility] Comment on above: Performed By: #### 5 7021-8 ####IRVIN MUNGUIA ([id number])[facility] ([facility])[address] [place] [address] 82564 MCH (RBC) [Entitic mass] 26.4 pg Normal 26.0-34.0 [facility] Comment on above: Performed By: #### 5 7021-8 ####IRVIN MUNGUIA ([id number])[facility] ([facility])[address] [place] [address] 21351 MCHC (RBC) [Mass/Vol] 30.4 g/dL Low 32.0-36.0 [facility] Comment on above: Performed By: #### 5 7021-8 ####IRVIN MUNGUIA ([id number])[facility] ([facility])[address] [place] [address] 08119 MCV (RBC) [Entitic vol] 87 fL Normal 80-100 [facility] Comment on above: Performed By: #### 5 7021-8 ####IRVIN MUNGUIA ([id number])[facility] ([facility])[address] [place] [address] 14494 Monocytes (Bld) [#/Vol] 0.73 x10*3/uL Normal 0.10-1.00 [facility] Comment on above: Performed By: #### 5 7021-8 ####IRVIN MUNGUIA ([id number])[facility] ([facility])[address] [place] [address] Monocytes/100 WBC (Bld) 8.2 % Normal 2.0-10.0 [facility] Comment on above: Performed By: #### 5 7021-8 ####IRVIN MUNGUIA ([id number])[facility] ([facility])[address] [place] [address] 32064 Neutrophils (Bld) [#/Vol] 5.70 x10*3/uL Normal 1.20-7.70 [facility] Comment on above: Result Comment: Perc ent differential counts (%) should be interpreted in the context of the absolute cell counts (cells/uL). Performed By: #### 5 7021-8 ####IRVIN MUNGUIA ([id number])[facility] ([facility])[address] [place] [address] 45764 Neutrophils/100 WBC (Bld) 64.3 % Normal 40.0-80.0 [facility] Comment on above: Performed By: #### 5 7021-8 ####IRVIN MUNGUIA ([id number])[facility] ([facility])[address] [place] [address] 06306 Nucleated RBC/100 WBC (Bld) [Ratio] 0.0 /100 WBCs Normal 0.0-0.0 [facility] Comment on above: Performed By: #### 5 7021-8 ####IRVIN MUNGUIA ([id number])[facility] ([facility])[address] [place] [address] 54823 Platelets (Bld) [#/Vol] 322 x10*3/uL Normal 150-450 [facility] Comment on above: Performed By: #### 5 7021-8 ####IRVIN MUNGUIA ([id number])[facility] ([facility])[address] [place] [address] 77282 RBC (Bld) [#/Vol] 5.19 x10*6/uL Normal 4.00-5.[address] [facility] Comment on above: Performed By: #### 5 7021-8 ####IRVIN MUNGUIA ([id number])[facility] ([facility])[address] [place] [address] 79732 WBC (Bld) [#/Vol] 8.9 x10*3/uL Normal 4.4-11.3 [facility] Comment on above: Performed By: #### 5 7021-8 ####IRVIN MUNGUIA ([id number])[facility] ([facility])[address] [place] [address] CT ABDOMEN PELVIS W IV CONTR Reny 06-04-2024 CT ABDOMEN PELVIS W IV CONTRAST Normal [facility] Comprehensive metabolic 2000 panelon 06-04-2024 Albumin BCP dye [Mass/Vol] 4.7 g/dL Normal 3.4-5.0 [facility] Comment on above: Performed By: #### 2 4323-8 ####IRVIN MUNGUIA ([id number])[facility] ([facility])[address] [place] [address] ALP [Catalytic activity/Vol] 143 U/L High 33-110 [facility] Comment on above: Performed By: #### 2 4323-8 ####IRVIN MUNGUIA ([id number])[facility] ([facility])[address] [place] [address] 47029 ALT With P-5'-P [Catalytic activity/Vol] 100 U/L High 7-45 [facility] Comment on above: Result Comment: Evelyn ents treated with Sulfasalazine may generate falsely decreased results for ALT. Performed By: #### 2 4323-8 ####IRVIN MUNGUIA ([id number])[facility] ([facility])[address] [place] [address] 38008 Anion gap [Moles/Vol] 15 mmol/L Normal 10-20 [facility] Comment on above: Performed By: #### 2 4323-8 ####IRVIN MUNGUIA ([id number])[facility] ([facility])[address] [place] [address] AST With P-5'-P [Catalytic activity/Vol] 62 U/L High 9-39 [facility] Comment on above: Performed By: #### 2 4323-8 ####IRVIN MUNGUIA ([id number])[facility] ([facility])[address] [place] [address] Bilirubin [Mass/Vol] 0.4 mg/dL Normal 0.0-1.[address] [facility] Comment on above: Performed By: #### 2 4322-8 ####IRVIN MUNGUIA ([id number])[facility] ([facility])[address] [place] [address] 36184 Calcium [Mass/Vol] 9.8 mg/dL Normal 8.6-10.3 [facility] Comment on above: Performed By: #### 2 4322-8 ####IRVIN MUNGUIA ([id number])[facility] ([facility])[address] [place] [address] 49077 Chloride [Moles/Vol] 100 mmol/L Normal 98-[address] [facility] Comment on above: Performed By: #### 2 4322-8 ####IRVIN MUNGUIA ([id number])[facility] ([facility])[address] [place] [address] CO2 [Moles/Vol] 26 mmol/L Normal 21-32 [facility] Comment on above: Performed By: #### 2 4322-8 ####IRVIN MUNGUIA ([id number])[facility] ([facility])[address] [place] [address] 28099 Creatinine [Mass/Vol] 0.96 mg/dL Normal 0.50-1.05 [facility] Comment on above: Performed By: #### 2 432-8 ####IRVIN MUNGUIA ([id number])[facility] ([facility])[address] [place] [address] 84087 Glomerular filtration rate/1.73 sq M.predicted 73 mL/min/1.73m*2 Normal >60 [facility] Comment on above: Result Comment: Calc ulations of estimated GFR are performed using the 2020 CKD-EPI Study Refit equation without the race variable for the IDMS-Traceable creatinine methods.https://jasn.asnjournals.org/content/early/ N.5369796480 Performed By: #### 2 4323-8 ####IRVIN MUNGUIA ([id number])[facility] ([facility])[address] [place] [address] 84347 Glucose [Mass/Vol] 153 mg/dL High 74-99 [facility] Comment on above: Performed By: #### 2 4323-8 ####IRVIN MUNGUIA ([id number])[facility] ([facility])[address] [place] [address] 37654 Potassium [Moles/Vol] 3.8 mmol/L Normal 3.5-5.3 [facility] Comment on above: Performed By: #### 2 4323-8 ####IRVIN MUNGUIA ([id number])[facility] ([facility])[address] [place] [address] 50366 Protein [Mass/Vol] 7.5 g/dL Normal 6.4-8.2 [facility] Comment on above: Performed By: #### 2 4323-8 ####IRVIN MUNGUIA ([id number])[facility] ([facility])[address] [place] [address] 23553 Sodium [Moles/Vol] 137 mmol/L Normal 136-145 [facility] Comment on above: Performed By: #### 2 4323-8 ####IRVIN MUNGUIA ([id number])[facility] ([facility])[address] [place] [address] 88900 Urea nitrogen [Mass/Vol] 12 mg/dL Normal 6-23 [facility] Comment on above: Performed By: #### 2 4323-8 ####IRVIN MUNGUIA ([id number])[facility] ([facility])[address] [place] [address] 08994 Urinalysis complete W Reflex Culture panel (U)on 06-04-2024 Appearance (U) Clear Normal Clear [facility] Comment on above: Performed By: #### 5 8077-9 ####IRVIN MUNGUIA ([id number])[facility] ([facility])[address] [place] [address] Bilirubin (U) [Mass/Vol] Negative Normal NEGATIVE [facility] Comment on above: Performed By: #### 5 8077-9 ####IRVIN MUNGUIA ([id number])[facility] ([facility])[address] [place], [place] [address] Color (U) Light-Yellow Normal Light-Yellow , Yellow, Dark-Yellow [facility] Comment on above: Performed By: #### 5 8077-9 ####IRVIN MUNGUIA ([id number])[facility] ([facility])[address] [place] [address] Glucose Auto test strip (U) [Mass/Vol] Normal Normal Normal [facility] Comment on above: Performed By: #### 5 8077-9 ####IRVIN MUNGUIA ([id number])[facility] ([facility])[address] [place] [address] 51828 Ketones (U) [Mass/Vol] Negative Normal NEGATIVE [facility] Comment on above: Performed By: #### 5 8077-9 ####IRVIN MUNGUIA ([id number])[facility] ([facility])[address] [place] [address] 15522 Leukocyte esterase Auto test strip Ql (U) Negative Normal NEGATIVE [facility] Comment on above: Performed By: #### 5 8077-9 ####IRVIN MUNGUIA ([id number])[facility] ([facility])[address] [place] [address] 77003 Nitrite Auto test strip Ql (U) Negative Normal NEGATIVE [facility] Comment on above: Performed By: #### 5 8077-9 ####IRVIN MUNGUIA ([id number])[facility] ([facility])[address] [place] [address] 37283 pH (U) 7.0 [pH] Normal 5.0, 5.5, 6.0, 6.5, 7.0, 7.5, 8.0 [facility] Comment on above: Performed By: #### 5 8077-9 ####IRVIN MUNGUIA ([id number])[facility] ([facility])[address] [place] [address] Protein (U) [Mass/Vol] Negative Normal NEGATIVE, 10 (TRACE), 20 (TRACE) [facility] Comment on above: Performed By: #### 5 8077-9 ####IRVIN MUNGUIA ([id number])[facility] ([facility])[address] [place] [address] RBC (U) [#/Vol] Negative Normal NEGATIVE [facility] Comment on above: Performed By: #### 5 8077-9 ####IRVIN MUNGUIA ([id number])[facility] ([facility])[address] [place] [address] Specific gravity (U) [Rel density] 1.012 Normal 1.005-1.035 [facility] Comment on above: Performed By: #### 5 8077-9 ####IRVIN MUNGUIA ([id number])[facility] ([facility])[address] [place] [address] Urobilinogen (U) [Mass/Vol] Normal Normal Normal [facility] Comment on above: Performed By: #### 5 [id number] ####IRVIN MUNGUIA ([id number])[facility] ([facility])[address] [place] [address] CNOVon 05-31-2024 CNOV Office Visit (OBGYWM ) DOROTHEA RUTLEDGE ([id number]) 1975 F Date Time Provider Department 05/31/24 3:20 PM LYNN MAIER OBJOHNNIEWAbdoulaye During your visit today, we recorded the following information about you: Blood pressure Weight 124/82 104.8 kg Lynn Maier MD 05/31/2024 3:36 PM Signed The sensitive examination was discussed with the Patient or Patient's Authorized Plant Operations Coordinator. As applicable, any other physician, advance practice provider, medical student, or other health professional student that will be observing or involved in the sensitive examination for educational or training purposes was discussed with the Patient or Authorized Plant Operations Coordinator. The Patient or Authorized Plant Operations Coordinator has agreed to proceed with the sensitive examination. (Sensitive examination includes inspection and/or palpation of the breasts, pelvis, prostate and anorectal regions) Component Assembler Supervisor offered: Patient declines. Dorothea Rutledge is a [...] OB History No obstetric history on file. 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 Normal [facility] SURGICAL PATHOLOGYon 024 CASE REPORT Normal [place] [facility] Comment on above: Order Comment: Speci men Type: TISSUE SPECIMEN Ordering Facility: [facility] Address: [address] [place] [address] Result Comment: Surg ical Pathology Report Case: [id number] Authorizing Provider: Lynn Maier MD Collected: 05/31/2024 03:32 PM Ordering Location: OB/Gynecology Received: 05/31/2024 04:52 PM Pathologist: Theodore Salazar MD Specimen: Perineum, Biopsy Performed By: #### S #### [facility] CLIA [id number] [address] [place] [place] [address] STATES OF [place] [facility] CLIA [id number] [address] [place] [address] STATES OF [place] CLINICAL HISTORY bleeding skin tag Normal [facility] Comment on above: Order Comment: Speci men Type: TISSUE SPECIMEN Ordering Facility: [facility] Address: [address] [place] [address] Performed By: #### S #### [facility] CLIA [id number] [address] [place] [address] [place] [facility] CLIA [id number] [address] [place] [address] OF [facility] FINAL DIAGNOSIS Normal [facility] Comment on above: Order Comment: Speci men Type: TISSUE SPECIMEN Ordering Facility: [facility] Address: [address] [place] [address] Result Comment: Jane neum, excision: - Intradermal nevus. MJM 06/04/2024 Performed By: #### S #### [facility] CLIA [id number] [address] [place] [address] STATES OF [place] [facility] CLIA [id number] [address] [place] [address] [place] FINAL PERFORMING LAB Normal [facility] Comment on above: Order Comment: Speci men Type: TISSUE SPECIMEN Ordering Facility: [facility] Address: [address] [place] [address] Result Comment: Diag nostic interpretation performed at [facility], [address] [place] [address] CLIA# [id number] Brand Leader: Theodore Salazar M.D. Performed By: #### S #### [facility] CLIA [id number] [address] [place] [place] [address] STATES OF [place] [facility] CLIA [id number] [address] [place] [address] STATES OF [place] GROSS DESCRIPTION Normal [facility] Comment on above: Order Comment: Speci men Type: TISSUE SPECIMEN Ordering Facility: [facility] Address: [address] [place] [address] Result Comment: A. P erineum, Biopsy Received in formalin is a segment of duron wrinkled rubbery skin measuring 0.9 x 0.4 x 0.5 cm. The specimen is bisected. Totally submitted in one cassette. Gross examination performed at [facility], [address] [place] [address] FFS 06/01/2024 1:56 AM Performed By: #### S #### [facility] CLIA [id number] [address] [place] [address] [place] [facility] CLIA [id number] [address] [place] [address] [place] CBC W Auto Differential pane l (Bld)on 05-30-2024 Basophils (Bld) [#/Vol] 0.05 x10*3/uL Normal 0.00-0.10 [facility] Comment on above: Performed By: #### 5 7021-8 #### ALVARO CROUCH ([id number]) [facility] ([facility]) [address] [place] [address] Basophils/100 WBC (Bld) 0.6 % Normal 0.0-2.0 [facility] Comment on above: Performed By: #### 5 7021-8 #### ALVARO CROUCH ([id number]) [facility] ([facility]) [address] [place] [address] Eosinophils (Bld) [#/Vol] 0.15 x10*3/uL Normal 0.00-0.70 [facility] Comment on above: Performed By: #### 5 7021-8 #### ALVARO CROUCH ([id number]) [facility] ([facility]) [address] [place] [address] Eosinophils/100 WBC (Bld) 1.8 % Normal 0.0-6.0 [facility] Comment on above: Performed By: #### 5 7021-8 #### ALVARO CROUCH ([id number]) [facility] ([facility]) [address] [place] [address] Erythrocyte distribution width (RBC) [Ratio] 15.8 % High 11.5-14.5 [facility] Comment on above: Performed By: #### 5 7021-8 #### ALVARO CROUCH ([id number]) [facility] ([facility]) [address] [place] [address] Hematocrit (Bld) [Volume fraction] 40.2 % Normal 36.0-46.0 [facility] Comment on above: Performed By: #### 5 7021-8 #### ALVARO CROUCH ([id number]) [facility] ([facility]) [address] [place] [address] Hemoglobin (Bld) [Mass/Vol] 12.6 g/dL Normal 12.0-16.0 [facility] Comment on above: Performed By: #### 5 7021-8 #### ALVARO CROUCH ([id number]) [facility] ([facility]) [address] [place] [address] Immature granulocytes (Bld) [#/Vol] 0.08 x10*3/uL Normal 0.00-0.70 [facility] Comment on above: Performed By: #### 5 7021-8 #### ALVARO CROUCH ([id number]) [facility] ([facility]) [address] [place] [address] Immature granulocytes/100 WBC (Bld) 1.0 % High 0.0-0.9 [facility] Comment on above: Result Comment: Debbie ture Granulocyte Count (IG) includes promyelocytes, myelocytes and metamyelocytes but does not include bands. Percent differential counts (%) should be interpreted in the context of the absolute cell counts (cells/UL). Performed By: #### 5 7021-8 #### ALVARO CROUCH ([id number]) [facility] ([facility]) [address] [place] [address] Lymphocytes (Bld) [#/Vol] 1.96 x10*3/uL Normal 1.20-4.80 [facility] Comment on above: Performed By: #### 5 7021-8 #### ALVARO CROUCH ([id number]) [facility] ([facility]) [address] [place] [address] Lymphocytes/100 WBC (Bld) 23.8 % Normal 13.0-44.0 [facility] Comment on above: Performed By: #### 5 7021-8 #### ALVARO CROUCH ([id number]) [facility] ([facility]) [address] [place] [address] MCH (RBC) [Entitic mass] 26.9 pg Normal 26.0-34.0 [facility] Comment on above: Performed By: #### 5 7021-8 #### ALVARO CROUCH ([id number]) [facility] ([facility]) [address] [place] [address] MCHC (RBC) [Mass/Vol] 31.3 g/dL Low 32.0-36.0 [facility] Comment on above: Performed By: #### 5 7021-8 #### ALVARO CROUCH ([id number]) [facility] ([facility]) [address] [place] [address] MCV (RBC) [Entitic vol] 86 fL Normal 80-100 [facility] Comment on above: Performed By: #### 5 7021-8 #### ALVARO CROUCH ([id number]) [facility] ([facility]) [address] [place] [address] Monocytes (Bld) [#/Vol] 0.43 x10*3/uL Normal 0.10-1.00 [facility] Comment on above: Performed By: #### 5 7021-8 #### ALVARO CROUCH ([id number]) [facility] ([facility]) [address] [place] [address] Monocytes/100 WBC (Bld) 5.2 % Normal 2.0-10.0 [facility] Comment on above: Performed By: #### 5 7021-8 #### ALVARO CROUCH ([id number]) [facility] ([facility]) [address] [place] [address] Neutrophils (Bld) [#/Vol] 5.56 x10*3/uL Normal 1.20-7.70 [facility] Comment on above: Result Comment: Perc ent differential counts (%) should be interpreted in the context of the absolute cell counts (cells/uL). Performed By: #### 5 7021-8 #### ALVARO CROUCH ([id number]) [facility] ([facility]) [address] [place] [address] Neutrophils/100 WBC (Bld) 67.6 % Normal 40.0-80.0 [facility] Comment on above: Performed By: #### 5 7021-8 #### ALVARO CROUCH ([id number]) [facility] ([facility]) [address] [place] [address] Nucleated RBC/100 WBC (Bld) [Ratio] 0.0 /100 WBCs Normal 0.0-0.0 [facility] Comment on above: Performed By: #### 5 7021-8 #### ALVARO CROUCH ([id number]) [facility] ([facility]) [address] [place] [address] Platelets (Bld) [#/Vol] 293 x10*3/uL Normal 150-450 [facility] Comment on above: Performed By: #### 5 7021-8 #### ALVARO CROUCH ([id number]) [facility] ([facility]) [address] [place] [address] RBC (Bld) [#/Vol] 4.69 x10*6/uL Normal 4.00-5.20 [facility] Comment on above: Performed By: #### 5 7021-8 #### ALVARO PERRINFRI ([id number]) [facility] ([facility]) [address] [place] [address] WBC (Bld) [#/Vol] 8.2 x10*3/uL Normal 4.4-11.3 [facility] Comment on above: Performed By: #### 5 7021-8 #### ALVARO CROUCH ([id number]) [facility] ([facility]) [address] [place] [address] CT ABDOMEN PELVIS W IV CONTR Reny 05-30-2024 CT ABDOMEN PELVIS W IV CONTRAST STUDY: CT Angiogram of the Chest, CT Abdomen and Pelvis with IV Contrast; 05/30/2024, 1520 INDICATION: Sudden onset of left sided abdominal pain radiating around to back with nausea. COMPARISON: XR chest 05/30/2024, CT abd 05/15/2024, 04/12/2024, CTA chest 02/27/2024. ACCESSION NUMBER(S): [id number], [id number] ORDERING CLINICIAN: SARAH HO TECHNIQUE: CTA of [...] the liver. Signed by Richard Hardy MD [facility] CT ANGIO CHEST FOR PULMONARY EMBOLISMon 05-30-2024 CT ANGIO CHEST FOR PULMONARY EMBOLISM STUDY: CT Angiogram of the Chest, CT Abdomen and Pelvis with IV Contrast; 05/30/2024, 1520 INDICATION: Sudden onset of left sided abdominal pain radiating around to back with nausea. COMPARISON: XR chest 05/30/2024, CT abd 05/15/2024, 04/12/2024, CTA chest 02/27/2024. ACCESSION NUMBER(S): [id number], [id number] ORDERING CLINICIAN: SARAH HO TECHNIQUE: CTA of [...] liver. Signed by Richard Hardy MD Normal [facility] Coagulation tissue factor in ducedon 05-30-2024 PT Coag (PPP) [Time] 23.1 s High 9.8-12.8 [facility] Comment on above: Performed By: #### 5 902-2 #### ALVARO CROUCH ([id number]) [facility] ([facility]) [address] [place] [address] Comprehensive metabolic 2000 panelon 05-30-2024 Albumin BCP dye [Mass/Vol] 4.3 g/dL Normal 3.4-5.0 [facility] Comment on above: Performed By: #### 5 7021-8 #### ALVARO CROUCH ([id number]) [facility] ([facility]) [address] [place] [address] ALP [Catalytic activity/Vol] 121 U/L High 33-110 [facility] Comment on above: Performed By: #### 5 7021-8 #### ALVARO CROUCH ([id number]) [facility] ([facility]) [address] [place] [address] ALT With P-5'-P [Catalytic activity/Vol] 86 U/L High 7-45 [facility] Comment on above: Result Comment: Evelyn ents treated with Sulfasalazine may generate falsely decreased results for ALT. Performed By: #### 5 7021-8 #### ALVARO CROUCH ([id number]) [facility] ([facility]) [address] [place] [address] Anion gap [Moles/Vol] 17 mmol/L Normal 10-20 [facility] Comment on above: Performed By: #### 5 7021-8 #### ALVARO CROUCH ([id number]) [facility] ([facility]) [address] [place] [address] AST With P-5'-P [Catalytic activity/Vol] 53 U/L High 9-39 [facility] Comment on above: Performed By: #### 5 7021-8 #### ALVARO CROUCH ([id number]) [facility] ([facility]) [address] [place] [address] Bilirubin [Mass/Vol] 0.3 mg/dL Normal 0.0-1.2 [facility] Comment on above: Performed By: #### 5 7021-8 #### ALVARO CROUCH ([id number]) [facility] ([facility]) [address] [place] [address] Calcium [Mass/Vol] 9.5 mg/dL Normal 8.6-10.3 [facility] Comment on above: Performed By: #### 5 7021-8 #### ALVARO CROUCH ([id number]) [facility]) [address] [place] [address] Chloride [Moles/Vol] 98 mmol/L Normal 98-107 [facility] Comment on above: Performed By: #### 5 7021-8 #### ALVARO PERRINFRI ([id number]) [facility]) [address] [place] [address] CO2 [Moles/Vol] 25 mmol/L Normal 21-32 [facility] Comment on above: Performed By: #### 5 7021-8 #### ALVARO CROUCH ([id number]) [facility]) [address] [place] [address] Creatinine [Mass/Vol] 0.84 mg/dL Normal 0.50-1.05 [facility] Comment on above: Performed By: #### 5 7021-8 #### ALVARO CROUCH ([id number]) [facility] ([facility]) [address] [place] [address] Glomerular filtration rate/1.73 sq M.predicted 85 mL/min/1.73m*2 Normal >60 [facility] Comment on above: Result Comment: Calc ulations of estimated GFR are performed using the 2020 CKD-EPI Study Refit equation without the race variable for the IDMS-Traceable creatinine methods. https://jasn.asnjournals.org/content/early/ASN.956911 1589 Performed By: #### 5 7021-8 #### ALVARO CROUCH ([id number]) [facility]) [address] [place] [address] Glucose [Mass/Vol] 174 mg/dL High 74-99 [facility] Comment on above: Performed By: #### 5 7021-8 #### ALVARO CROUCH ([id number]) [facility]) [address] [place] [address] Potassium [Moles/Vol] 3.8 mmol/L Normal 3.5-5.3 [facility] Comment on above: Performed By: #### 5 7021-8 #### ALVARO CROUCH ([id number]) [facility] ([facility]) [address] [place] [address] Protein [Mass/Vol] 7.6 g/dL Normal 6.4-8.2 [facility] Comment on above: Performed By: #### 5 7021-8 #### ALVARO CROUCH ([id number]) [facility]) [address] [place] [address] Sodium [Moles/Vol] 136 mmol/L Normal 136-145 [facility] Comment on above: Performed By: #### 5 7021-8 #### ALVARO CROUCH ([id number]) [facility]) [address] [place] [address] Urea nitrogen [Mass/Vol] 22 mg/dL Normal 6-23 [facility] Comment on above: Performed By: #### 5 7021-8 #### ALVARO CROUCH ([id number]) [facility]) [address] [place] [address] ECG 12-LEADon 05-30-2024 ECG 12-LEAD Ventricular Rate 78 Atrial Rate 78 P-R Interval 154 QRS Duration 90 Q-T Interval 410 QTC Calculation(Bazett) 467 P [place] 15 R [place] 29 T [place] 35 QRS Count 13 Q Onset 223 P Onset 146 P Offset 199 T Offset 428 QTC Fredericia 447 Diagnosis Normal sinus rhythm Normal ECG When compared with ECG of 17-MAR-2024 16:07, No significant change was found See ED provider note for full interpretation and clinical correlation Confirmed by Hemalatha Lange ([id number]) on 06/07/2024 11:29:01 AM Normal [facility] Natriuretic peptide B [Mass/ Vol]on 05-30-2024 Natriuretic peptide B (Bld) [Mass/Vol] 14 pg/mL Normal 0-99 [facility] Comment on above: Order Comment: <100 pg/mL - Heart failure unlikely 100-299 pg/mL - Intermediate probability of acute heart failure exacerbation. Correlate with clinical context and patient history. >=300 pg/mL - Heart Failure likely. Correlate with clinical context and patient history. BNP testing is performed using different testing methodology at [facility] than at other [facility]. Direct result comparisons should only be made within the same method. Performed By: #### 3 0934-4 #### ALVARO CROUCH ([id number]) [facility] ([facility]) [address] [place] [address] PT Coag (PPP) [Time]on 05-30 INR Coag (PPP) [Relative time] 2.0 High 0.9-1.1 [facility] Comment on above: Performed By: #### 5 902-2 #### ALVARO CROUCH ([id number]) [facility]) [address] [place] [address] Triacylglycerol lipaseon Lipase [Catalytic activity/Vol] 61 U/L Normal 9-82 [facility] Comment on above: Order Comment: Venip uncture immediately after or during the administration of Metamizole may lead to falsely low results. Testing should be performed immediately prior to Metamizole dosing. Performed By: #### 5 7021-8 #### ALVARO CROUCH ([id number]) [facility] ([facility]) [address] [place] [address] Troponin I.cardiac panelon 0 05-30-2024 Tropinin I.cardiac panel High sensitivity method <3 Normal 0-13 [facility] Comment on above: Order Comment: Less [...] is performed using a differenttesting methodology at [facility] Direct result comparisons should onlybe made within the same method. Performed By: #### 5 7021-8 #### ALVARO CROUCH ([id number]) [facility] ([facility]) [address] [place] [address] Urinalysis complete W Reflex Culture panel (U)on 05-30-2024 Appearance (U) Clear Normal Clear [facility] Comment on above: Performed By: #### 5 8077-9 #### ALVARO CROUCH ([id number]) [facility] ([facility]) [address] [place] [address] Bilirubin (U) [Mass/Vol] Negative Normal NEGATIVE [facility] Comment on above: Performed By: #### 5 8077-9 #### ALVARO CROUCH ([id number]) [facility] ([facility]) [address] [place] [address] Color (U) Yellow Normal Light-Yellow , Yellow, Dark-Yellow [facility] Comment on above: Performed By: #### 5 8077-9 #### ALVARO CROUCH ([id number]) [facility] ([facility]) [address] [place] [address] Glucose Auto test strip (U) [Mass/Vol] Normal Normal Normal [facility] Comment on above: Performed By: #### 5 8077-9 #### ALVARO CROUCH ([id number]) [facility] ([facility]) [address] [place] [address] Ketones (U) [Mass/Vol] Negative Normal NEGATIVE [facility] Comment on above: Performed By: #### 5 8077-9 #### ALVARO CROUCH ([id number]) [facility] ([facility]) [address] [place] [address] Leukocyte esterase Auto test strip Ql (U) Negative Normal NEGATIVE [facility] Comment on above: Performed By: #### 5 8077-9 #### ALVARO CROUCH ([id number]) [facility] ([facility]) [address] [place] [address] Nitrite Auto test strip Ql (U) Negative Normal NEGATIVE [facility] Comment on above: Performed By: #### 5 8077-9 #### ALVARO CROUCH ([id number]) [facility] ([facility]) [address] [place] [address] pH (U) 5.5 [pH] Normal 5.0, 5.5, 6.0, 6.5, 7.0, 7.5, 8.0 [facility] Comment on above: Performed By: #### 5 8077-9 #### ALVARO CROUCH ([id number]) [facility]) [address] [place] [address] Protein (U) [Mass/Vol] Negative Normal NEGATIVE, 10 (TRACE), 20 (TRACE) [facility] Comment on above: Performed By: #### 5 8077-9 #### ALVARO CROUCH ([id number]) [facility] ([facility]) [address] [place] [address] RBC (U) [#/Vol] Negative Normal NEGATIVE [facility] Comment on above: Performed By: #### 5 8077-9 #### ALVARO CROUCH ([id number]) [facility] ([facility]) [address] [place] [address] Specific gravity (U) [Rel density] 1.015 Normal 1.005-1.035 [facility] Comment on above: Performed By: #### 5 8077-9 #### ALVARO CROUCH ([id number]) [facility] ([facility]) [address] [place] [address] Urobilinogen (U) [Mass/Vol] Normal Normal Normal [facility] Comment on above: Performed By: #### 5 8077-9 #### ALVARO CROUCH ([id number]) [facility] ([facility]) [address] [place] [address] XR CHEST 2 VIEWSon XR CHEST 2 VIEWS STUDY: Chest Radiographs; 05/30/2024 2:15 PM INDICATION: Shortness of breath. COMPARISON: XR chest 05/15/2024 ACCESSION NUMBER(S): [id number] ORDERING CLINICIAN: SARAH HO TECHNIQUE: Frontal and lateral chest. FINDINGS: CARDIOMEDIASTINAL SILHOUETTE: Cardiomediastinal silhouette is normal in size and configuration. LUNGS: Lungs are clear. Right chest port ABDOMEN: [place] IVC filter. BONES: Old right seventh and eighth rib fractures. IMPRESSION: No regions of airspace consolidation. Signed by Theodore Fournier MD Normal [facility] Bacteria identifiedon 2023 Bacteria identified Cx Nom (U) Abnormal [facility] Comment on above: Performed By: #### 6 30-4 ####ANDI Cotter ([id number])[facility] ([facility])[id number] [place] [address] CBC W Auto Differential pane l (Bld)on 05-28-2024 Basophils (Bld) [#/Vol] 0.06 x10*3/uL Normal 0.00-0.10 [facility] Comment on above: Order Comment: [place] EDTA Performed By: #### 5 7021-8 ####IRVIN MUNGUIA ([id number])[facility] ([facility])[address] [place] [address] Basophils/100 WBC (Bld) 0.8 % Normal 0.0-2.0 [facility] Comment on above: Order Comment: [place] EDTA Performed By: #### 5 7021-8 ####IRVIN MUNGUIA ([id number])[facility] ([facility])[address] [place] [address] Eosinophils (Bld) [#/Vol] 0.13 x10*3/uL Normal 0.00-0.70 [facility] Comment on above: Order Comment: [place] EDTA Performed By: #### 5 7021-8 ####IRVIN MUNGUIA ([id number])[facility] ([facility])[address] [place] [address] Eosinophils/100 WBC (Bld) 1.7 % Normal 0.0-6.0 [facility] Comment on above: Order Comment: [place] EDTA Performed By: #### 5 7021-8 ####IRVIN MUNGUIA ([id number])[facility] ([facility])[address] [place] [address] Erythrocyte distribution width (RBC) [Ratio] 15.4 % High 11.5-14.5 [facility] Comment on above: Order Comment: [place] EDTA Performed By: #### 5 7021-8 ####IRVIN MUNGUIA ([id number])[facility] ([facility])[address] [place] [address] Hematocrit (Bld) [Volume fraction] 40.4 % Normal 36.0-46.0 [facility] Comment on above: Order Comment: [place] EDTA Performed By: #### 5 7021-8 ####IRVIN MUNGUIA ([id number])[facility] ([facility])[address] [place] [address] Hemoglobin (Bld) [Mass/Vol] 12.7 g/dL Normal 12.0-16.0 [facility] Comment on above: Order Comment: [place] EDTA Performed By: #### 5 7021-8 ####IRVIN MUNGUIA ([id number])[facility] ([facility])[address] [place] [address] [id number] Immature granulocytes (Bld) [#/Vol] 0.05 x10*3/uL Normal 0.00-0.70 [facility] Comment on above: Order Comment: [place] che[place]enne EDTA Performed By: #### 5 7021-8 ####IRVIN MUNGUIA ([id number])[facility] ([facility])[address] [place], [place] [address] 46225 Immature granulocytes/100 WBC (Bld) 0.6 % Normal 0.0-0.9 [facility] Comment on above: Order Comment: Laven cheyenne EDTA Result Comment: Debbie ture Granulocyte Count (IG) includes promyelocytes, myelocytes and metamyelocytes but does not include bands. Percent differential counts (%) should be interpreted in the context of the absolute cell counts (cells/UL). Performed By: #### 5 7021-8 ####IRVIN MUNGUIA ([id number])[facility] ([facility])[address] [place] [address] 02262 Lymphocytes (Bld) [#/Vol] 1.96 x10*3/uL Normal 1.20-4.80 [facility] Comment on above: Order Comment: L[place] EDTA Performed By: #### 5 7021-8 ####IRVIN MUNGUIA ([id number])[facility] ([facility])[address] [place] [address] 47574 Lymphocytes/100 WBC (Bld) 25.4 % Normal 13.0-44.0 [facility] Comment on above: Order Comment: [place] EDTA Performed By: #### 5 7021-8 ####IRVIN MUNGUIA ([id number])[facility] ([facility])[address] [place] [address] 83270 MCH (RBC) [Entitic mass] 26.8 pg Normal 26.0-34.0 [facility] Comment on above: Order Comment: [place] EDTA Performed By: #### 5 7021-8 ####IRVIN MUNGUIA ([id number])[facility] ([facility])[address] [place] [address] 17708 MCHC (RBC) [Mass/Vol] 31.4 g/dL Low 32.0-36.0 [facility] Comment on above: Order Comment: [place] EDTA Performed By: #### 5 7021-8 ####IRVIN MUNGUIA ([id number])[facility] ([facility])[address] [place] [address] 64012 MCV (RBC) [Entitic vol] 85 fL Normal 80-100 [facility] Comment on above: Order Comment: [place] EDTA Performed By: #### 5 7021-8 ####IRVIN MUNGUIA ([id number])[facility] ([facility])[address] [place] [address] 77570 Monocytes (Bld) [#/Vol] 0.39 x10*3/uL Normal 0.10-1.00 [facility] Comment on above: Order Comment: [place] EDTA Performed By: #### 5 7021-8 ####IRVIN MUNGUIA ([id number])[facility] ([facility])[address] [place] [address] 42218 Monocytes/100 WBC (Bld) 5.0 % Normal 2.0-10.0 [facility] Comment on above: Order Comment: [place] EDTA Performed By: #### 5 7021-8 ####IRVIN MUNGUIA ([id number])[facility] ([facility])[address] [place] [address] 26093 Neutrophils (Bld) [#/Vol] 5.14 x10*3/uL Normal 1.20-7.70 [facility] Comment on above: Order Comment: [place] EDTA Result Comment: Perc ent differential counts (%) should be interpreted in the context of the absolute cell counts (cells/uL). Performed By: #### 5 7021-8 ####IRVIN MUNGUIA ([id number])[facility] ([facility])[address] [place] [address] 68600 Neutrophils/100 WBC (Bld) 66.5 % Normal 40.0-80.0 [facility] Comment on above: Order Comment: [place] EDTA Performed By: #### 5 7021-8 ####IRVIN MUNGUIA ([id number])[facility] ([facility])[address] [place] [address] 92678 Nucleated RBC/100 WBC (Bld) [Ratio] 0.0 /100 WBCs Normal 0.0-0.0 [facility] Comment on above: Order Comment: [place] EDTA Performed By: #### 5 7021-8 ####IRVIN MUNGUIA ([id number])[facility] ([facility])[address] [place] [address] 10437 Platelets (Bld) [#/Vol] 311 x10*3/uL Normal 150-450 [facility] Comment on above: Order Comment: [place] EDTA Performed By: #### 5 7021-8 ####IRVIN MUNGUIA ([id number])[facility] ([facility])[address] [place] [address] 36505 RBC (Bld) [#/Vol] 4.74 x10*6/uL Normal 4.00-5.[address] [facility] Comment on above: Order Comment: [place] EDTA Performed By: #### 5 7021-8 ####IRVIN MUNGUIA ([id number])[facility] ([facility])[address] [place] [address] WBC (Bld) [#/Vol] 7.7 x10*3/uL Normal 4.4-11.3 [facility] Comment on above: Order Comment: [place] EDTA Performed By: #### 5 7021-8 ####IRVIN MUNGUIA ([id number])[facility] ([facility])[address] [place] [address] CT ABDOMEN PELVIS W IV CONTR Reny 05-28-2024 CT ABDOMEN PELVIS W IV CONTRAST Normal [facility] Comprehensive metabolic 2000 panelon 05-28-2024 Albumin BCP dye [Mass/Vol] 4.5 g/dL Normal 3.4-5.0 [facility] Comment on above: Order Comment: Plasm a Serum Separator Performed By: #### 2 4323-8 ####IRVIN MUNGUIA ([id number])[facility] ([facility])[address] [place] [address] ALP [Catalytic activity/Vol] 124 U/L High 33-110 [facility] Comment on above: Order Comment: Plasm a Serum Separator Performed By: #### 2 4323-8 ####IRVIN MUNGUIA ([id number])[facility] ([facility])[address] [place] [address] ALT With P-5'-P [Catalytic activity/Vol] 71 U/L High 7-45 [facility] Comment on above: Order Comment: Plasm a Serum Separator Result Comment: Evelyn ents treated with Sulfasalazine may generate falsely decreased results for ALT. Performed By: #### 2 4323-8 ####IRVIN MUNGUIA ([id number])[facility] ([facility])[address] [place] [address] Anion gap [Moles/Vol] 15 mmol/L Normal 10-20 [facility] Comment on above: Order Comment: Plasm a Serum Separator Performed By: #### 2 4323-8 ####IRVIN MUNGUIA ([id number])[facility] ([facility])[address] [place] [address] AST With P-5'-P [Catalytic activity/Vol] 35 U/L Normal 9-39 [facility] Comment on above: Order Comment: Plasm a Serum Separator Performed By: #### 2 4323-8 ####IRVIN MUNGUIA ([id number])[facility] ([facility])[address] [place] [address] 77663 Bilirubin [Mass/Vol] 0.3 mg/dL Normal 0.0-1.[address] [facility] Comment on above: Order Comment: Plasm a Serum Separator Performed By: #### 2 4323-8 ####IRVIN MUNGUIA ([id number])[facility] ([facility])[address] [place] [address] 86949 Calcium [Mass/Vol] 9.3 mg/dL Normal 8.6-10.3 [facility] Comment on above: Order Comment: Plasm a Serum Separator Performed By: #### 2 4323-8 ####IRVIN MUNGUIA ([id number])[facility] ([facility])[address] [place] [address] 74313 Chloride [Moles/Vol] 97 mmol/L Low 98-[address] [facility] Comment on above: Order Comment: Plasm a Serum Separator Performed By: #### 2 4323-8 ####IRVIN MUNGUIA ([id number])[facility] ([facility])[address] [place] [address] 84011 CO2 [Moles/Vol] 25 mmol/L Normal 21-32 [facility] Comment on above: Order Comment: Plasm a Serum Separator Performed By: #### 2 4323-8 ####IRVIN MUNGUIA ([id number])[facility] ([facility])[address] [place] [address] 49852 Creatinine [Mass/Vol] 0.99 mg/dL Normal 0.50-1.05 [facility] Comment on above: Order Comment: Plasm a Serum Separator Performed By: #### 2 4323-8 ####IRVIN MUNGUIA ([id number])[facility] ([facility])[address] [place] [address] 76231 Glomerular filtration rate/1.73 sq M.predicted 70 mL/min/1.73m*2 Normal >60 [facility] Comment on above: Order Comment: Plasm a Serum Separator Result Comment: Calc ulations of estimated GFR are performed using the 2020 CKD-EPI Study Refit equation without the race variable for the IDMS-Traceable creatinine methods.https://jasn.asnjournals.org/content/early/ N.8440947213 Performed By: #### 2 4323-8 ####IRVIN MUNGUIA ([id number])[facility] ([facility])[address] [place] [address] 74732 Glucose [Mass/Vol] 334 mg/dL High 74-99 [facility] [place] Comment on above: Order Comment: Plasm a Serum Separator Performed By: #### 2 4323-8 ####IRVIN MUNGUIA ([id number])[facility] ([facility])[address] [place] [address] 04427 Potassium [Moles/Vol] 4.0 mmol/L Normal 3.5-5.3 [facility] Comment on above: Order Comment: Plasm a Serum Separator Performed By: #### 2 4323-8 ####IRVIN MUNGUIA ([id number])[facility] ([facility])[address] [place] [address] 82630 Protein [Mass/Vol] 7.3 g/dL Normal 6.4-8.2 [facility] Comment on above: Order Comment: Plasm a Serum Separator Performed By: #### 2 4323-8 ####IRVIN MUNGUIA ([id number])[facility] ([facility])[address] [place] [address] 31240 Sodium [Moles/Vol] 133 mmol/L Low 136-145 [facility] Comment on above: Order Comment: Plasm a Serum Separator Performed By: #### 2 4323-8 ####IRVIN MUNGUIA ([id number])[facility] ([facility])[address] [place] [address] 69757 Urea nitrogen [Mass/Vol] 18 mg/dL Normal 6-23 [facility] Comment on above: Order Comment: Plasm a Serum Separator Performed By: #### 2 4323-8 ####IRVIN MUNGUIA ([id number])[facility] ([facility])[address] [place] [address] 82908 Glucose Test strip manual (B ld) [Mass/Vol]on 05-28-2024 Glucose [Mass/Vol] 311 mg/dL High 74-99 [facility] Comment on above: Performed By: #### 2 341-6 ####IRVIN MUNGUIA ([id number])[facility] ([facility])[address] [place] [address] 84268 Urinalysis complete W Reflex Culture panel (U)on 05-28-2024 Appearance (U) Clear Normal Clear [facility] Comment on above: Order Comment: OVER is reported when the result is greater than the clinically reportable range. Performed By: #### 5 8077-9 ####IRVIN MUNGUIA ([id number])[facility] ([facility])[address] [place] [address] 45692 Bilirubin (U) [Mass/Vol] Negative Normal NEGATIVE [facility] Comment on above: Order Comment: OVER is reported when the result is greater than the clinically reportable range. Performed By: #### 5 8077-9 ####IRVIN MUNGUIA ([id number])[facility] ([facility])[address] [place] [address] 53427 Color (U) Yellow Normal Light-Yellow , Yellow, Dark-Yellow [facility] Comment on above: Order Comment: OVER is reported when the result is greater than the clinically reportable range. Performed By: #### 5 8077-9 ####IRVIN MUNGUIA ([id number])[facility] ([facility])[address] [place] [address] 61303 Glucose Auto test strip (U) [Mass/Vol] OVER (4+) Abnormal Normal [facility] Comment on above: Order Comment: OVER is reported when the result is greater than the clinically reportable range. Performed By: #### 5 8077-9 ####IRVIN MUNGUIA ([id number])[facility] ([facility])[address] [place] [address] 01771 Ketones (U) [Mass/Vol] Negative Normal NEGATIVE [facility] Comment on above: Order Comment: OVER is reported when the result is greater than the clinically reportable range. Performed By: #### 5 8077-9 ####IRVIN MUNGUIA ([id number])[facility] ([facility])[address] [place] [address] 31594 Leukocyte esterase Auto test strip Ql (U) 250 Deborah/???L Abnormal NEGATIVE [facility] Comment on above: Order Comment: OVER is reported when the result is greater than the clinically reportable range. Performed By: #### 5 8077-9 ####IRVIN MUNGUIA ([id number])[facility] ([facility])[address] [place] [address] Nitrite Auto test strip Ql (U) Negative Normal NEGATIVE [facility] Comment on above: Order Comment: OVER is reported when the result is greater than the clinically reportable range. Performed By: #### 5 8077-9 ####IRVIN MUNGUIA ([id number])[facility] ([facility])[address] [place], [place] [address] pH (U) 6.5 [pH] Normal 5.0, 5.5, 6.0, 6.5, 7.0, 7.5, 8.0 [facility] Comment on above: Order Comment: OVER is reported when the result is greater than the clinically reportable range. Performed By: #### 5 8077-9 ####IRVIN MUNGUIA ([id number])[facility] ([facility])[address] [place] [address] 34631 Protein (U) [Mass/Vol] Negative Normal NEGATIVE, 10 (TRACE), 20 (TRACE) [facility] Comment on above: Order Comment: OVER is reported when the result is greater than the clinically reportable range. Performed By: #### 5 8077-9 ####IRVIN MUNGUIA ([id number])[facility] ([facility])[address] [place] [address] RBC (U) [#/Vol] 0.03 (TRACE) Abnormal NEGATIVE [facility] Comment on above: Order Comment: OVER is reported when the result is greater than the clinically reportable range. Performed By: #### 5 8077-9 ####IRVIN MUNGUIA ([id number])[facility] ([facility])[address] [place] [address] Specific gravity (U) [Rel density] 1.015 Normal 1.005-1.035 [facility] Comment on above: Order Comment: OVER is reported when the result is greater than the clinically reportable range. Performed By: #### 5 8077-9 ####IRVIN MUNGUIA ([id number])[facility] ([facility])[address] [place] [address] Urobilinogen (U) [Mass/Vol] Normal Normal Normal [facility] Comment on above: Order Comment: OVER is reported when the result is greater than the clinically reportable range. Performed By: #### 5 8077-9 ####IRVIN MUNGUIA ([id number])[facility] ([facility])[address] [place] [address] Urinalysis microscopic panel Auto Ql (U)on 05-28-2024 Bacteria Auto (Urine sed) [#/Area] 1+ /HPF Abnormal NONE SEEN [facility] Comment on above: Performed By: #### 5 3315-8 ####IRVIN MUNGUIA ([id number])[facility] ([facility])[address] [place], [place] [address] Epithelial cells.squamous Auto (Urine sed) [#/Area] 1-9 (SPARSE) Normal Reference range not established. [facility] Comment on above: Performed By: #### 5 3315-8 ####IRVIN MUNGUIA ([id number])[facility] ([facility])[address] [place], [place] [address] Leukocyte clumps Auto (Urine sed) [#/Area] RARE Normal Reference range not established. [facility] Comment on above: Performed By: #### 5 3315-8 ####IRVIN MUNGUIA ([id number])[facility] ([facility])[address] [place] [address] 41151 Mucus Auto (Urine sed) [#/Area] FEW Normal Reference range not established. [facility] Comment on above: Performed By: #### 5 3315-8 ####IRVIN MUNGUIA ([id number])[facility] ([facility])[address] [place] [address] 92973 RBC Auto (Urine sed) [#/Area] >20 Abnormal NONE, 1-2, 3-5 [facility] Comment on above: Performed By: #### 5 3315-8 ####IRVIN MUNGUIA ([id number])[facility] ([facility])[address] [place] [address] 98655 WBC Auto (Urine sed) [#/Area] 21-50 Abnormal 1-5, NONE [facility] Comment on above: Performed By: #### 5 3315-8 ####IRVIN MUNGUIA ([id number])[facility] ([facility])[address] [place] [address] 06514 Beta hydroxybutyrate [Mass o r moles/Vol]on 05-15-2024 Beta hydroxybutyrate [Moles/Vol] 0.27 mmol/L Normal 0.02-0.27 [facility] Comment on above: Order Comment: The b eta-hydroxybutyrate test performance characteristics have been validated by [facility]. This test has not been approved by the FDA; however, such approval is not necessary. Result Comment: MILD HEMOLYSIS DETECTED. The result may be falsely elevated due to hemolysis or other interferents. Clinical correlation is recommended. Repeat testing may be considered. Performed By: #### 3 5255-9 ####IRVIN MUNGUIA ([id number])[facility] ([facility])[address] [place], [place] [address] CBC panel Auto (Bld)on 05-15 Erythrocyte distribution width (RBC) [Ratio] 15.2 % High 11.5-14.5 [facility] Comment on above: Performed By: #### 5 8410-2 ####IRVIN MUNGUIA ([id number])[facility] ([facility])[address] [place] [address] 81894 Hematocrit (Bld) [Volume fraction] 43.8 % Normal 36.0-46.0 [facility] Comment on above: Performed By: #### 5 8410-2 ####IRVIN MUNGUIA ([id number])[facility] ([facility])[address] [place] [address] 09105 Hemoglobin (Bld) [Mass/Vol] 13.6 g/dL Normal 12.0-16.0 [facility] Comment on above: Performed By: #### 5 8410-2 ####IRVIN MUNGUIA ([id number])[facility] ([facility])[address] [place], [place] [address] MCH (RBC) [Entitic mass] 26.5 pg Normal 26.0-34.0 [facility] Comment on above: Performed By: #### 5 8410-2 ####IRVIN MUNGUIA ([id number])[facility] ([facility])[address] [place], [place] [address] MCHC (RBC) [Mass/Vol] 31.1 g/dL Low 32.0-36.0 [facility] Comment on above: Performed By: #### 5 8410-2 ####IRVIN MUNGUIA ([id number])[facility] ([facility])[address] [place] [address] 66763 MCV (RBC) [Entitic vol] 85 fL Normal 80-100 [facility] Comment on above: Performed By: #### 5 8410-2 ####IRVIN MUNGUIA ([id number])[facility] ([facility])[address] [place] [address] 11446 Nucleated RBC/100 WBC (Bld) [Ratio] 0.0 /100 WBCs Normal 0.0-0.0 [facility] Comment on above: Performed By: #### 5 8410-2 ####IRVIN MUNGUIA ([id number])[facility] ([facility])[address] [place] [address] 21037 Platelets (Bld) [#/Vol] 367 x10*3/uL Normal 150-450 [facility] Comment on above: Performed By: #### 5 8410-2 ####IRVIN MUNGUIA ([id number])[facility] ([facility])[address] [place] [address] RBC (Bld) [#/Vol] 5.14 x10*6/uL Normal 4.00-5.[address] [facility] Comment on above: Performed By: #### 5 8410-2 ####IRVIN MUNGUIA ([id number])[facility] ([facility])[address] [place] [address] WBC (Bld) [#/Vol] 11.3 x10*3/uL Normal 4.4-11.[address] [facility] Comment on above: Performed By: #### 5 8410-2 ####IRVIN MUNGUIA ([id number])[facility] ([facility])[address] [place] [address] CT ABDOMEN PELVIS W IV CONTR Reny 05-15-2024 CT ABDOMEN PELVIS W IV CONTRAST Normal [facility] Coagulation tissue factor in ducedon 05-15-2024 PT Coag (PPP) [Time] 16.2 s High 9.8-12.[address] [facility] Comment on above: Performed By: #### 5 902-2 ####IRVIN MUNGUIA ([id number])[facility] ([facility])[address] [place] [address] Comprehensive metabolic 2000 panelon 05-15-2024 Albumin BCP dye [Mass/Vol] 4.8 g/dL Normal 3.4-5.0 [facility] Comment on above: Performed By: #### 2 4323-8 ####IRVIN MUNGUIA ([id number])[facility] ([facility])[address] [place] [address] ALP [Catalytic activity/Vol] 127 U/L High 33-110 [facility] Comment on above: Performed By: #### 2 4323-8 ####IRVIN MUNGUIA ([id number])[facility] ([facility])[address] [place] [address] ALT With P-5'-P [Catalytic activity/Vol] 48 U/L High 7-45 [facility] Comment on above: Result Comment: Evelyn ents treated with Sulfasalazine may generate falsely decreased results for ALT. Performed By: #### 2 4323-8 ####IRVIN MUNGUIA ([id number])[facility] ([facility])[address] [place] [address] 69985 Anion gap [Moles/Vol] 16 mmol/L Normal 10-20 [facility] Comment on above: Performed By: #### 2 4323-8 ####IRVIN MUNGUIA ([id number])[facility] ([facility])[address] [place] [address] 38043 AST With P-5'-P [Catalytic activity/Vol] 33 U/L Normal 9-39 [facility] Comment on above: Result Comment: MILD HEMOLYSIS DETECTED. The result may be falsely elevated due to hemolysis or other interferents. Clinical correlation is recommended. Repeat testing may be considered. Performed By: #### 2 4323-8 ####IRVIN MUNGUIA ([id number])[facility] ([facility])[address] [place] [address] 46482 Bilirubin [Mass/Vol] 0.3 mg/dL Normal 0.0-1.[address] [facility] Comment on above: Performed By: #### 2 4323-8 ####IRVIN MUNGUIA ([id number])[facility] ([facility])[address] [place] [address] 40567 Calcium [Mass/Vol] 9.3 mg/dL Normal 8.6-10.3 [facility] [place] Comment on above: Performed By: #### 2 4323-8 ####IRVIN MUNGUIA ([id number])[facility] ([facility])[address] [place] [address] 11806 Chloride [Moles/Vol] 101 mmol/L Normal 98-[address] [facility] Comment on above: Performed By: #### 2 4323-8 ####IRVIN MUNGUIA ([id number])[facility] ([facility])[address] [place] [address] 65240 CO2 [Moles/Vol] 21 mmol/L Normal 21-32 [facility] Comment on above: Performed By: #### 2 4323-8 ####IRVIN MUNGUIA ([id number])[facility] ([facility])[address] [place] [address] 00329 Creatinine [Mass/Vol] 0.78 mg/dL Normal 0.50-1.05 [facility] Comment on above: Performed By: #### 2 4323-8 ####IRVIN MUNGUIA ([id number])[facility] ([facility])[address] [place] [address] 07822 GFR/1.73 sq M.predicted MDRD (S/P/Bld) [Vol rate/Area] mL/min/{1.73_m2} Normal >60 [facility] Comment on above: Result Comment: Calc ulations of estimated GFR are performed using the 2020 CKD-EPI Study Refit equation without the race variable for the IDMS-Traceable creatinine methods.https://jasn.asnjournals.org/content/early/ N.0661116107 Performed By: #### 2 4323-8 ####IRVIN MUNGUIA ([id number])[facility] ([facility])[address] [place] [address] 31174 Glucose [Mass/Vol] 240 mg/dL High 74-99 [facility] Comment on above: Performed By: #### 2 4323-8 ####IRVIN MUNGUIA ([id number])[facility] ([facility])[address] [place] [address] 36969 Potassium [Moles/Vol] 4.1 mmol/L Normal 3.5-5.3 [facility] Comment on above: Result Comment: MILD HEMOLYSIS DETECTED. The result may be falsely elevated due to hemolysis or other interferents. Clinical correlation is recommended. Repeat testing may be considered. Performed By: #### 2 4323-8 ####IRVIN MUNGUIA ([id number])[facility] ([facility])[address] [place] [address] [id number] Protein [Mass/Vol] 8.1 g/dL Normal 6.4-8.2 [facility] [place] Comment on above: Performed By: #### 2 4323-8 ####IRVIN MUNGUIA ([id number])[facility] ([facility])[address] [place] [address] 01359 Sodium [Moles/Vol] 134 mmol/L Low 136-145 [facility] [place] Comment on above: Performed By: #### 2 4323-8 ####IRVIN MUNGUIA ([id number])[facility] ([facility])[address] [place] [address] [id number] Urea nitrogen [Mass/Vol] 21 mg/dL Normal 6-23 [facility] Comment on above: Performed By: #### 2 4323-8 ####IRVIN MUNGUIA ([id number])[facility] ([facility])[address] [place] [address] [id number] PT Coag (PPP) [Time]on 05-15 INR Coag (PPP) [Relative time] 1.4 High 0.9-1.1 [facility] Comment on above: Performed By: #### 5 902-2 ####IRVIN MUNGUIA ([id number])[facility] ([facility])[address] [place] [address] [id number] Triacylglycerol lipaseon Lipase [Catalytic activity/Vol] 19 U/L Normal 9-82 [facility] Comment on above: Order Comment: Venip uncture immediately after or during the administration of Metamizole may lead to falsely low results. Testing should be performed immediately prior to Metamizole dosing. Performed By: #### 3 040-3 ####IRVIN MUNGUIA ([id number])[facility] ([facility])[address] [place] [address] 40954 Urinalysis complete W Reflex Culture panel (U)on 05-15-2024 Appearance (U) Clear Normal Clear [facility] Comment on above: Performed By: #### 5 8077-9 ####IRVIN MUNGUIA ([id number])[facility] ([facility])[address] [place] [address] Bilirubin (U) [Mass/Vol] Negative Normal NEGATIVE [facility] Comment on above: Performed By: #### 5 8077-9 ####IRVIN MUNGUIA ([id number])[facility] ([facility])[address] [place] [address] Color (U) Colorless Normal Light-Yellow , Yellow, Dark-Yellow [facility] Comment on above: Performed By: #### 5 8077-9 ####IRVIN MUNGUIA ([id number])[facility] ([facility])[address] [place] [address] Glucose Auto test strip (U) [Mass/Vol] Normal Normal Normal [facility] Comment on above: Performed By: #### 5 8077-9 ####IRVIN MUNGUIA ([id number])[facility] ([facility])[address] [place] [address] Ketones (U) [Mass/Vol] Negative Normal NEGATIVE [facility] Comment on above: Performed By: #### 5 8077-9 ####IRVIN MUNGUIA ([id number])[facility] ([facility])[address] [place], [place] [address] Leukocyte esterase Auto test strip Ql (U) Negative Normal NEGATIVE [facility] Comment on above: Performed By: #### 5 8077-9 ####IRVIN MUNGUIA ([id number])[facility] ([facility])[address] [place], [place] [address] Nitrite Auto test strip Ql (U) Negative Normal NEGATIVE [facility] Comment on above: Performed By: #### 5 8077-9 ####IRVIN MUNGUIA ([id number])[facility] ([facility])[address] [place], [place] [address] pH (U) 6.0 [pH] Normal 5.0, 5.5, 6.0, 6.5, 7.0, 7.5, 8.0 [facility] Comment on above: Performed By: #### 5 8077-9 ####IRVIN MUNGUIA ([id number])[facility] ([facility])[address] [place] [address] Protein (U) [Mass/Vol] Negative Normal NEGATIVE, 10 (TRACE), 20 (TRACE) [facility] Comment on above: Performed By: #### 5 8077-9 ####IRVIN MUNGUIA ([id number])[facility] ([facility])[address] [place] [address] RBC (U) [#/Vol] Negative Normal NEGATIVE [facility] Comment on above: Performed By: #### 5 8077-9 ####IRVIN MUNGUIA ([id number])[facility] ([facility])[address] [place] [address] Specific gravity (U) [Rel density] 1.013 Normal 1.005-1.035 [facility] Comment on above: Performed By: #### 5 8077-9 ####IRVIN MUNGUIA ([id number])[facility] ([facility])[address] [place] [address] Urobilinogen (U) [Mass/Vol] Normal Normal Normal [facility] Comment on above: Performed By: #### 5 8077-9 ####IRVIN MUNGUIA ([id number])[facility] ([facility])[address] [place] [address] XR CHEST 1 VIEWon 05-15-2024 XR CHEST 1 VIEW Normal [facility] CBC W Auto Differential pane l (Bld)on 04-21-2024 Basophils (Bld) [#/Vol] 0.04 x10*3/uL Normal 0.00-0.10 [facility] Comment on above: Performed By: #### 5 7021-8 ####IRVIN MUNGUIA ([id number])[facility] ([facility])[address] [place] [address] Basophils/100 WBC (Bld) 0.4 % Normal 0.0-2.0 [facility] Comment on above: Performed By: #### 5 7021-8 ####IRVIN MUNGUIA ([id number])[facility] ([facility])[address] [place] [address] 78575 Eosinophils (Bld) [#/Vol] 0.19 x10*3/uL Normal 0.00-0.70 [facility] Comment on above: Performed By: #### 5 7021-8 ####IRVIN MUNGUIA ([id number])[facility] ([facility])[address] [place] [address] 34262 Eosinophils/100 WBC (Bld) 1.7 % Normal 0.0-6.0 [facility] Comment on above: Performed By: #### 5 7021-8 ####IRVIN MUNGUIA ([id number])[facility] ([facility])[address] [place] [address] 99422 Erythrocyte distribution width (RBC) [Ratio] 14.8 % High 11.5-14.5 [facility] Comment on above: Performed By: #### 5 7021-8 ####IRVIN MUNGUIA ([id number])[facility] ([facility])[address] [place] [address] 08291 Hematocrit (Bld) [Volume fraction] 38.8 % Normal 36.0-46.0 [facility] Comment on above: Performed By: #### 5 7021-8 ####IRVIN MUNGUIA ([id number])[facility] ([facility])[address] [place] [address] 18683 Hemoglobin (Bld) [Mass/Vol] 11.8 g/dL Low 12.0-16.0 [facility] Comment on above: Performed By: #### 5 7021-8 ####IRVIN MUNGUIA ([id number])[facility] ([facility])[address] [place] [address] 29098 Immature granulocytes (Bld) [#/Vol] 0.05 x10*3/uL Normal 0.00-0.70 [facility] Comment on above: Performed By: #### 5 7021-8 ####IRVIN MUNGUIA ([id number])[facility] ([facility])[address] [place] [address] 35321 Immature granulocytes/100 WBC (Bld) 0.5 % Normal 0.0-0.9 [facility] Comment on above: Result Comment: Debbie ture Granulocyte Count (IG) includes promyelocytes, myelocytes and metamyelocytes but does not include bands. Percent differential counts (%) should be interpreted in the context of the absolute cell counts (cells/UL). Performed By: #### 5 7021-8 ####IRVIN MUNGUIA ([id number])[facility] ([facility])[address] [place] [address] 40439 Lymphocytes (Bld) [#/Vol] 2.10 x10*3/uL Normal 1.20-4.80 [facility] Comment on above: Performed By: #### 5 7021-8 ####IRVIN MUNGUIA ([id number])[facility] ([facility])[address] [place] [address] 74359 Lymphocytes/100 WBC (Bld) 19.3 % Normal 13.0-44.0 [facility] Comment on above: Performed By: #### 5 7021-8 ####IRVIN MUNGUIA ([id number])[facility] ([facility])[address] [place] [address] 68824 MCH (RBC) [Entitic mass] 25.5 pg Low 26.0-34.0 [facility] Comment on above: Performed By: #### 5 7021-8 ####IRVIN MUNGUIA ([id number])[facility] ([facility])[address] [place] [address] 18027 MCHC (RBC) [Mass/Vol] 30.4 g/dL Low 32.0-36.0 [facility] Comment on above: Performed By: #### 5 7021-8 ####IRVIN MUNGUIA ([id number])[facility] ([facility])[address] [place] [address] 70162 MCV (RBC) [Entitic vol] 84 fL Normal 80-100 [facility] Comment on above: Performed By: #### 5 7021-8 ####IRVIN MUNGUIA ([id number])[facility] ([facility])[address] [place] [address] 97493 Monocytes (Bld) [#/Vol] 0.64 x10*3/uL Normal 0.10-1.00 [facility] Comment on above: Performed By: #### 5 7021-8 ####IRVIN MUNGUIA ([id number])[facility] ([facility])[address] [place] [address] 64754 Monocytes/100 WBC (Bld) 5.9 % Normal 2.0-10.0 [facility] Comment on above: Performed By: #### 5 7021-8 ####IRVIN MUNGUIA ([id number])[facility] ([facility])[address] [place] [address] 20239 Neutrophils (Bld) [#/Vol] 7.84 x10*3/uL High 1.20-7.70 [facility] Comment on above: Result Comment: Perc ent differential counts (%) should be interpreted in the context of the absolute cell counts (cells/uL). Performed By: #### 5 7021-8 ####IRVIN MUNGUIA ([id number])[facility] ([facility])[address] [place] [address] 92379 Neutrophils/100 WBC (Bld) 72.2 % Normal 40.0-80.0 [facility] Comment on above: Performed By: #### 5 7021-8 ####IRVIN MUNGUIA ([id number])[facility] ([facility])[address] [place] [address] 69154 Nucleated RBC/100 WBC (Bld) [Ratio] 0.0 /100 WBCs Normal 0.0-0.0 [facility] Comment on above: Performed By: #### 5 7021-8 ####IRVIN MUNGUIA ([id number])[facility] ([facility])[address] [place] [address] 71448 Platelets (Bld) [#/Vol] 345 x10*3/uL Normal 150-450 [facility] Comment on above: Performed By: #### 5 7021-8 ####IRVIN MUNGUIA ([id number])[facility] ([facility])[address] [place] [address] 36591 RBC (Bld) [#/Vol] 4.63 x10*6/uL Normal 4.00-5.[address] [facility] Comment on above: Performed By: #### 5 7021-8 ####IRVIN MUNGUIA ([id number])[facility] ([facility])[address] [place] [address] WBC (Bld) [#/Vol] 10.9 x10*3/uL Normal 4.4-11.[address] [facility] Comment on above: Performed By: #### 5 7021-8 ####IRVIN MUNGUIA ([id number])[facility] ([facility])[address] [place] [address] Comprehensive metabolic 2000 panelon 04-21-2024 Albumin BCP dye [Mass/Vol] 4.2 g/dL Normal 3.4-5.0 [facility] Comment on above: Performed By: #### 2 4323-8 ####IRVIN MUNGUIA ([id number])[facility] ([facility])[address] [place] [address] ALP [Catalytic activity/Vol] 168 U/L High 33-110 [facility] Comment on above: Performed By: #### 2 4323-8 ####IRVIN MUNGUIA ([id number])[facility] ([facility])[address] [place] [address] ALT With P-5'-P [Catalytic activity/Vol] 53 U/L High 7-45 [facility] Comment on above: Result Comment: Evelyn ents treated with Sulfasalazine may generate falsely decreased results for ALT. Performed By: #### 2 4323-8 ####IRVIN MUNGUIA ([id number])[facility] ([facility])[address] [place] [address] 97332 Anion gap [Moles/Vol] 17 mmol/L Normal 10-20 [facility] Comment on above: Performed By: #### 2 4323-8 ####IRVIN MUNGUIA ([id number])[facility] ([facility])[address] [place], [place] [address] AST With P-5'-P [Catalytic activity/Vol] 26 U/L Normal 9-39 [facility] Comment on above: Performed By: #### 2 4323-8 ####IRVIN MUNGUIA ([id number])[facility] ([facility])[address] [place] [address] 94602 Bilirubin [Mass/Vol] 0.3 mg/dL Normal 0.0-1.[address] [facility] Comment on above: Performed By: #### 2 4323-8 ####IRVIN MUNGUIA ([id number])[facility] ([facility])[address] [place] [address] 38455 Calcium [Mass/Vol] 9.8 mg/dL Normal 8.6-10.3 [facility] Comment on above: Performed By: #### 2 4323-8 ####IRVIN MUNGUIA ([id number])[facility] ([facility])[address] [place] [address] 23348 Chloride [Moles/Vol] 99 mmol/L Normal 98-[address] [facility] Comment on above: Performed By: #### 2 4323-8 ####IRVIN MUNGUIA ([id number])[facility] ([facility])[address] [place] [address] 68300 CO2 [Moles/Vol] 23 mmol/L Normal 21-32 [facility] Comment on above: Performed By: #### 2 4323-8 ####IRVIN MUNGUIA ([id number])[facility] ([facility])[address] [place] [address] 54324 Creatinine [Mass/Vol] 0.78 mg/dL Normal 0.50-1.05 [facility] Comment on above: Performed By: #### 2 4323-8 ####IRVIN MUNGUIA ([id number])[facility] ([facility])[address] [place] [address] 87743 GFR/1.73 sq M.predicted MDRD (S/P/Bld) [Vol rate/Area] mL/min/{1.73_m2} Normal >60 [facility] Comment on above: Result Comment: Calc ulations of estimated GFR are performed using the 2020 CKD-EPI Study Refit equation without the race variable for the IDMS-Traceable creatinine methods.https://jasn.asnjournals.org/content// N.1977741684 Performed By: #### 2 4323-8 ####IRVIN MUNGUIA ([id number])[facility] ([facility])[address] [place] [address] 80051 Glucose [Mass/Vol] 167 mg/dL High 74-99 [facility] Comment on above: Performed By: #### 2 4323-8 ####IRVIN MUNGUIA ([id number])[facility] ([facility])[address] [place] [address] 31957 Potassium [Moles/Vol] 3.9 mmol/L Normal 3.5-5.3 [facility] Comment on above: Performed By: #### 2 4323-8 ####IRVIN MUNGUIA ([id number])[facility] ([facility])[address] [place] [address] 24158 Protein [Mass/Vol] 7.9 g/dL Normal 6.4-8.2 [facility] Comment on above: Performed By: #### 2 4323-8 ####IRVIN MUNGUIA ([id number])[facility] ([facility])[address] [place] [address] 94270 Sodium [Moles/Vol] 135 mmol/L Low 136-145 [facility] Comment on above: Performed By: #### 2 4323-8 ####IRVIN MUNGUIA ([id number])[facility] ([facility])[address] [place] [address] 75907 Urea nitrogen [Mass/Vol] 12 mg/dL Normal 6-23 [facility] Comment on above: Performed By: #### 2 4323-8 ####IRVIN MUNGUIA ([id number])[facility] ([facility])[address] [place] [address] 87201 Lactateon 04-21-2024 Lactate [Moles/Vol] 1.6 mmol/L Normal 0.4-2.0 [facility] Comment on above: Order Comment: Venip uncture immediately after or during the administration of Metamizole may lead to falsely low results. Testing should be performed immediatelyprior to Metamizole dosing. Performed By: #### 2 524-7 ####IRVIN MUNGUIA ([id number])[facility] ([facility])[address] [place] [address] 56628 Triacylglycerol lipaseon Lipase [Catalytic activity/Vol] 62 U/L Normal 9-82 [facility] Comment on above: Order Comment: Venip uncture immediately after or during the administration of Metamizole may lead to falsely low results. Testing should be performed immediately prior to Metamizole dosing. Performed By: #### 3 040-3 ####IRVIN MUNGUIA ([id number])[facility] ([facility])[address] [place] [address] Urinalysis complete W Reflex Culture panel (U)on 04-21-2024 Appearance (U) Clear Normal Clear [facility] Comment on above: Performed By: #### 5 8077-9 ####IRVIN MUNGUIA ([id number])[facility] ([facility])[address] [place] [address] 43490 Bilirubin (U) [Mass/Vol] Negative Normal NEGATIVE [facility] Comment on above: Performed By: #### 5 8077-9 ####IRVIN MUNGUIA ([id number])[facility] ([facility])[address] [place] [address] 76955 Color (U) Colorless Normal Light-Yellow , Yellow, Dark-Yellow [facility] Comment on above: Performed By: #### 5 8077-9 ####IRVIN MUNGUIA ([id number])[facility] ([facility])[address] [place], [place] [address] Glucose Auto test strip (U) [Mass/Vol] Normal Normal Normal [facility] Comment on above: Performed By: #### 5 8077-9 ####IRVIN MNUGUIA ([id number])[facility] ([facility])[address] [place] [address] 23799 Ketones (U) [Mass/Vol] Negative Normal NEGATIVE [facility] Comment on above: Performed By: #### 5 8077-9 ####IRVIN MUNGUIA ([id number])[facility] ([facility])[address] [place] [address] 61470 Leukocyte esterase Auto test strip Ql (U) Negative Normal NEGATIVE [facility] Comment on above: Performed By: #### 5 8077-9 ####IRVIN MUNGUIA ([id number])[facility] ([facility])[address] [place] [address] Nitrite Auto test strip Ql (U) Negative Normal NEGATIVE [facility] Comment on above: Performed By: #### 5 8077-9 ####IRVIN MUNGUIA ([id number])[facility] ([facility])[address] [place] [address] pH (U) 6.5 [pH] Normal 5.0, 5.5, 6.0, 6.5, 7.0, 7.5, 8.0 [facility] Comment on above: Performed By: #### 5 8077-9 ####IRVIN MUNGUIA ([id number])[facility] ([facility])[address] [place] [address] 73401 Protein (U) [Mass/Vol] Negative Normal NEGATIVE, 10 (TRACE), 20 (TRACE) [facility] Comment on above: Performed By: #### 5 8077-9 ####IRVIN MUNGUIA ([id number])[facility] ([facility])[address] [place] [address] 54654 RBC (U) [#/Vol] Negative Normal NEGATIVE [facility] Comment on above: Performed By: #### 5 8077-9 ####IRVIN MUNGUIA ([id number])[facility] ([facility])[address] [place] [address] 93390 Specific gravity (U) [Rel density] 1.010 Normal 1.005-1.035 [facility] Comment on above: Performed By: #### 5 8077-9 ####IRVIN MUNGUIA ([id number])[facility] ([facility])[address] [place] [address] 97378 Urobilinogen (U) [Mass/Vol] Normal Normal Normal [facility] Comment on above: Performed By: #### 5 8077-9 ####IRVIN MUNGUIA ([id number])[facility] ([facility])[address] [place] [address] CBC W Auto Differential pane l (Bld)on 04-12-2024 Basophils (Bld) [#/Vol] 0.07 x10*3/uL Normal 0.00-0.10 [facility] Comment on above: Performed By: #### 5 7021-8 ####IRVIN MUNGUIA ([id number])[facility] ([facility])[address] [place] [address] Basophils/100 WBC (Bld) 0.7 % Normal 0.0-2.0 [facility] Comment on above: Performed By: #### 5 7021-8 ####IRVIN MUNGUIA ([id number])[facility] ([facility])[address] [place], [place] [address] Eosinophils (Bld) [#/Vol] 0.09 x10*3/uL Normal 0.00-0.70 [facility] Comment on above: Performed By: #### 5 7021-8 ####IRVIN MUNGUIA ([id number])[facility] ([facility])[address] [place] [address] 71640 Eosinophils/100 WBC (Bld) 0.9 % Normal 0.0-6.0 [facility] Comment on above: Performed By: #### 5 7021-8 ####IRVIN MUNGUIA ([id number])[facility] ([facility])[address] [place], [place] [address] Erythrocyte distribution width (RBC) [Ratio] 14.1 % Normal 11.5-14.5 [facility] Comment on above: Performed By: #### 5 7021-8 ####IRVIN MUNGUIA ([id number])[facility] ([facility])[address] [place] [address] Hematocrit (Bld) [Volume fraction] 38.5 % Normal 36.0-46.0 [facility] Comment on above: Performed By: #### 5 7021-8 ####IRVIN MUNGUIA ([id number])[facility] ([facility])[address] [place] [address] 93256 Hemoglobin (Bld) [Mass/Vol] 11.8 g/dL Low 12.0-16.0 [facility] Comment on above: Performed By: #### 5 7021-8 ####IRVIN MUNGUIA ([id number])[facility] ([facility])[address] [place] [address] 65200 Immature granulocytes (Bld) [#/Vol] 0.03 x10*3/uL Normal 0.00-0.70 [facility] Comment on above: Performed By: #### 5 7021-8 ####IRVIN MUNGUIA ([id number])[facility] ([facility])[address] [place] [address] 93103 Immature granulocytes/100 WBC (Bld) 0.3 % Normal 0.0-0.9 [facility] Comment on above: Result Comment: Debbie ture Granulocyte Count (IG) includes promyelocytes, myelocytes and metamyelocytes but does not include bands. Percent differential counts (%) should be interpreted in the context of the absolute cell counts (cells/UL). Performed By: #### 5 7021-8 ####IRVIN MUNGUIA ([id number])[facility] ([facility])[address] [place] [address] 89831 Lymphocytes (Bld) [#/Vol] 4.01 x10*3/uL Normal 1.20-4.80 [facility] Comment on above: Performed By: #### 5 7021-8 ####IRVIN MUNGUIA ([id number])[facility] ([facility])[address] [place] [address] 48995 Lymphocytes/100 WBC (Bld) 41.8 % Normal 13.0-44.0 [facility] Comment on above: Performed By: #### 5 7021-8 ####IRVIN MUNGUIA ([id number])[facility] ([facility])[address] [place] [address] 75523 MCH (RBC) [Entitic mass] 25.9 pg Low 26.0-34.0 [facility] Comment on above: Performed By: #### 5 7021-8 ####IRVIN MUNGUIA ([id number])[facility] ([facility])[address] [place] [address] 50333 MCHC (RBC) [Mass/Vol] 30.6 g/dL Low 32.0-36.0 [facility] Comment on above: Performed By: #### 5 7021-8 ####IRVIN MUNGUIA ([id number])[facility] ([facility])[address] [place], [place] [address] MCV (RBC) [Entitic vol] 85 fL Normal 80-100 [facility] Comment on above: Performed By: #### 5 7021-8 ####IRVIN MUNGUIA ([id number])[facility] ([facility])[address] [place] [address] 43396 Monocytes (Bld) [#/Vol] 0.58 x10*3/uL Normal 0.10-1.00 [facility] Comment on above: Performed By: #### 5 7021-8 ####IRVIN MUNGUIA ([id number])[facility] ([facility])[address] [place] [address] 26482 Monocytes/100 WBC (Bld) 6.0 % Normal 2.0-10.0 [facility] Comment on above: Performed By: #### 5 7021-8 ####IRVIN MUNGUIA ([id number])[facility] ([facility])[address] [place] [address] 17641 Neutrophils (Bld) [#/Vol] 4.81 x10*3/uL Normal 1.20-7.70 [facility] Comment on above: Result Comment: Perc ent differential counts (%) should be interpreted in the context of the absolute cell counts (cells/uL). Performed By: #### 5 7021-8 ####IRVIN MUNGUIA ([id number])[facility] ([facility])[address] [place] [address] 38387 Neutrophils/100 WBC (Bld) 50.3 % Normal 40.0-80.0 [facility] Comment on above: Performed By: #### 5 7021-8 ####IRVIN MUNGUIA ([id number])[facility] ([facility])[address] [place] [address] 87257 Nucleated RBC/100 WBC (Bld) [Ratio] 0.0 /100 WBCs Normal 0.0-0.0 [facility] Comment on above: Performed By: #### 5 7021-8 ####IRVIN MUNGUIA ([id number])[facility] ([facility])[address] [place] [address] 79515 Platelets (Bld) [#/Vol] 344 x10*3/uL Normal 150-450 [facility] Comment on above: Performed By: #### 5 7021-8 ####IRVIN MUNGUIA ([id number])[facility] ([facility])[address] [place] [address] 98150 RBC (Bld) [#/Vol] 4.55 x10*6/uL Normal 4.00-5.[address] [facility] Comment on above: Performed By: #### 5 7021-8 ####IRVIN MUNGUIA ([id number])[facility] ([facility])[address] [place] [address] 57616 WBC (Bld) [#/Vol] 9.6 x10*3/uL Normal 4.4-11.3 [facility] Comment on above: Performed By: #### 5 7021-8 ####IRVIN MUNGUIA ([id number])[facility] ([facility])[address] [place] [address] ABDOMEN PELVIS W IV CONTR Reny 04-12-2024 CT ABDOMEN PELVIS W IV CONTRAST Normal [facility] Coagulation surface inducedo n 04-12-2024 aPTT Coag (PPP) [Time] 47 s High 27-38 [facility] Comment on above: Order Comment: The A PTT is no longer used for monitoring Unfractionated Heparin Therapy. For monitoring Heparin Therapy, use the Heparin Assay. Performed By: #### 1 4979-9 ####IRVIN MUNGUIA ([id number])[facility] ([facility])[address] [place], [place] [id number] Coagulation tissue factor in ducedon 04-12-2024 PT Coag (PPP) [Time] 21.9 s High 9.8-12.[address] [facility] Comment on above: Performed By: #### 5 902-2 ####IRVIN MUNGUIA ([id number])[facility] ([facility])[address] [place] [address] [phone] Comprehensive metabolic 2000 panelon 04-12-2024 Albumin BCP dye [Mass/Vol] 4.1 g/dL Normal 3.4-5.0 [facility] Comment on above: Performed By: #### 2 4323-8 ####IRVIN MUNGUIA ([id number])[facility] ([facility])[address] [place] [address] 18477 ALP [Catalytic activity/Vol] 134 U/L High 33-110 [facility] Comment on above: Performed By: #### 2 4323-8 ####IRVIN MUNGUIA ([id number])[facility] ([facility])[address] [place] [address] 88728 ALT With P-5'-P [Catalytic activity/Vol] 39 U/L Normal 7-45 [facility] Comment on above: Result Comment: Evelyn ents treated with Sulfasalazine may generate falsely decreased results for ALT. Performed By: #### 2 4323-8 ####IRVIN MUNGUIA ([id number])[facility] ([facility])[address] [place] [address] 77978 Anion gap [Moles/Vol] 16 mmol/L Normal 10-20 [facility] Comment on above: Performed By: #### 2 4323-8 ####IRVIN MUNGUIA ([id number])[facility] ([facility])[address] [place] [address] 44544 AST With P-5'-P [Catalytic activity/Vol] 35 U/L Normal 9-39 [facility] Comment on above: Performed By: #### 2 4323-8 ####IRVIN MUNGUIA ([id number])[facility] ([facility])[address] [place] [address] Bilirubin [Mass/Vol] 0.3 mg/dL Normal 0.0-1.[address] [facility] Comment on above: Performed By: #### 2 4323-8 ####IRVIN MUNGUIA ([id number])[facility] ([facility])[address] [place] [address] 59549 Calcium [Mass/Vol] 8.7 mg/dL Normal 8.6-10.3 [facility] Comment on above: Performed By: #### 2 4323-8 ####IRVIN MUNGUIA ([id number])[facility] ([facility])[address] [place] [address] 85906 Chloride [Moles/Vol] 101 mmol/L Normal 98-[address] [facility] Comment on above: Performed By: #### 2 4323-8 ####IRVIN MUNGUIA ([id number])[facility] ([facility])[address] [place] [address] CO2 [Moles/Vol] 20 mmol/L Low 21-32 [facility] Comment on above: Performed By: #### 2 4323-8 ####IRVIN MUNGUIA ([id number])[facility] ([facility] [place] [address] Creatinine [Mass/Vol] 0.94 mg/dL Normal 0.50-1.05 [facility] Comment on above: Performed By: #### 2 4323-8 ####IRVIN MUNGUIA ([id number])[facility] ([facility])[address] [place] [address] 67995 Glomerular filtration rate/1.73 sq M.predicted 75 mL/min/1.73m*2 Normal >60 [facility] Comment on above: Result Comment: Calc ulations of estimated GFR are performed using the 2020 CKD-EPI Study Refit equation without the race variable for the IDMS-Traceable creatinine methods.https://jasn.asnjournals.org/content// N.[id number] Performed By: #### 2 4323-8 ####IRVIN MUNGUIA ([id number])[facility] ([facility])[address] [place] [address] 51783 Glucose [Mass/Vol] 146 mg/dL High 74-99 [facility] Comment on above: Performed By: #### 2 4323-8 ####IRVIN MUNGUIA ([id number])[facility] ([facility])[address] [place] [address] 37162 Potassium [Moles/Vol] 4.3 mmol/L Normal 3.5-5.3 [facility] Comment on above: Performed By: #### 2 4323-8 ####IRVIN MUNGUIA ([id number])[facility] ([facility])[address] [place] [address] 02513 Protein [Mass/Vol] 7.6 g/dL Normal 6.4-8.2 [facility] Comment on above: Performed By: #### 2 4323-8 ####IRVIN MUNGUIA ([id number])[facility] ([facility])[address] [place] [address] 25285 Sodium [Moles/Vol] 133 mmol/L Low 136-145 [facility] Comment on above: Performed By: #### 2 4323-8 ####IRVIN MUNGUIA ([id number])[facility] ([facility])[address] [place] [address] 06955 Urea nitrogen [Mass/Vol] 13 mg/dL Normal 6-23 [facility] Comment on above: Performed By: #### 2 4323-8 ####IRVIN MUNGUIA ([id number])[facility] ([facility])[address] [place] [address] 30800 Lactateon 04-12-2024 Lactate [Moles/Vol] 2.2 mmol/L High 0.4-2.0 [facility] Comment on above: Order Comment: Venip uncture immediately after or during the administration of Metamizole may lead to falsely low results. Testing should be performed immediatelyprior to Metamizole dosing. Performed By: #### 2 524-7 ####IRVIN MUNGUIA ([id number])[facility] ([facility])[address] [place] [address] Magnesiumon 04-12-2024 Magnesium [Mass/Vol] 1.79 mg/dL Normal 1.60-2.[address] [facility] Comment on above: Performed By: #### 1 9123-9 ####IRVIN MUNGUIA ([id number])[facility] ([facility])[address] [place] [address] PT Coag (PPP) [Time]on 04-12 INR Coag (PPP) [Relative time] 1.9 High 0.9-1.1 [facility] Comment on above: Performed By: #### 5 902-2 ####IRVIN MUNGUIA ([id number])[facility] ([facility])[address] [place] [address] Triacylglycerol lipaseon Lipase [Catalytic activity/Vol] 29 U/L Normal 9-82 [facility] Comment on above: Order Comment: Venip uncture immediately after or during the administration of Metamizole may lead to falsely low results. Testing should be performed immediately prior to Metamizole dosing. Performed By: #### 3 040-3 ####IRVIN MUNGUIA ([id number])[facility] ([facility])[address] [place] [address] CBC W Auto Differential pane l (Bld)on 04-03-2024 Basophils (Bld) [#/Vol] 0.04 x10*3/uL Normal 0.00-0.10 [facility] Comment on above: Performed By: #### 5 7021-8 ####IRVIN MUNGUIA ([id number])[facility] ([facility])[address] [place], [place] [address] Basophils/100 WBC (Bld) 0.3 % Normal 0.0-2.0 [facility] Comment on above: Performed By: #### 5 7021-8 ####IRVIN MUNGUIA ([id number])[facility] ([facility])[address] [place] [address] 42246 Eosinophils (Bld) [#/Vol] 0.16 x10*3/uL Normal 0.00-0.70 [facility] Comment on above: Performed By: #### 5 7021-8 ####IRVIN MUNGUIA ([id number])[facility] ([facility])[address] [place], [place] [address] Eosinophils/100 WBC (Bld) 1.3 % Normal 0.0-6.0 [facility] Comment on above: Performed By: #### 7021-8 ####IRVIN MUNGUIA ([id number])[facility] ([facility])[address] [place] [address] Erythrocyte distribution width (RBC) [Ratio] 13.8 % Normal 11.5-14.5 [facility] Comment on above: Performed By: #### 5 7021-8 ####IRVIN MUNGUIA ([id number])[facility] ([facility])[address] [place] [address] Hematocrit (Bld) [Volume fraction] 38.0 % Normal 36.0-46.0 [facility] Comment on above: Performed By: #### 5 7021-8 ####IRVIN MUNGUIA ([id number])[facility] ([facility])[address] [place] [address] Hemoglobin (Bld) [Mass/Vol] 11.7 g/dL Low 12.0-16.0 [facility] Comment on above: Performed By: #### 5 7021-8 ####IRVIN MUNGUIA ([id number])[facility] ([facility])[address] [place] [address] 64175 Immature granulocytes (Bld) [#/Vol] 0.07 x10*3/uL Normal 0.00-0.70 [facility] Comment on above: Performed By: #### 5 7021-8 ####IRVIN MUNGUIA ([id number])[facility] ([facility])[address] [place] [address] 69252 Immature granulocytes/100 WBC (Bld) 0.6 % Normal 0.0-0.9 [facility] Comment on above: Result Comment: Debbie ture Granulocyte Count (IG) includes promyelocytes, myelocytes and metamyelocytes but does not include bands. Percent differential counts (%) should be interpreted in the context of the absolute cell counts (cells/UL). Performed By: #### 5 7021-8 ####IRVIN MUNGUIA ([id number])[facility] ([facility])[address] [place] [address] Lymphocytes (Bld) [#/Vol] 2.81 x10*3/uL Normal 1.20-4.80 [facility] Comment on above: Performed By: #### 5 7021-8 ####IRVIN MUNGUIA ([id number])[facility] ([facility])[address] [place] [address] 93896 Lymphocytes/100 WBC (Bld) 23.5 % Normal 13.0-44.0 [facility] Comment on above: Performed By: #### 5 7021-8 ####IRVIN MUNGUIA ([id number])[facility] ([facility])[address] [place] [address] 85035 MCH (RBC) [Entitic mass] 26.2 pg Normal 26.0-34.0 [facility] Comment on above: Performed By: #### 5 7021-8 ####IRVIN MUNGUIA ([id number])[facility] ([facility])[address] [place] [address] 19044 MCHC (RBC) [Mass/Vol] 30.8 g/dL Low 32.0-36.0 [facility] Comment on above: Performed By: #### 5 7021-8 ####IRVIN MUNGUIA ([id number])[facility] ([facility])[address] [place] [address] 59903 MCV (RBC) [Entitic vol] 85 fL Normal 80-100 [facility] Comment on above: Performed By: #### 5 7021-8 ####IRVIN MUNGUIA ([id number])[facility] ([facility])[address] [place] [address] 09311 Monocytes (Bld) [#/Vol] 0.56 x10*3/uL Normal 0.10-1.00 [facility] Comment on above: Performed By: #### 5 7021-8 ####IRVIN MUNGUIA ([id number])[facility] ([facility])[address] [place] [address] 94374 Monocytes/100 WBC (Bld) 4.7 % Normal 2.0-10.0 [facility] Comment on above: Performed By: #### 5 7021-8 ####IRVIN MUNGUIA ([id number])[facility] ([facility])[address] [place] [address] 62543 Neutrophils (Bld) [#/Vol] 8.33 x10*3/uL High 1.20-7.70 [facility] Comment on above: Result Comment: Perc ent differential counts (%) should be interpreted in the context of the absolute cell counts (cells/uL). Performed By: #### 5 7021-8 ####IVRIN MUNGUIA ([id number])[facility] ([facility])[address] [place] [address] 75024 Neutrophils/100 WBC (Bld) 69.6 % Normal 40.0-80.0 [facility] Comment on above: Performed By: #### 5 7021-8 ####IRVIN MUNGUIA ([id number])[facility] ([facility])[address] [place] [address] 29570 Nucleated RBC/100 WBC (Bld) [Ratio] 0.0 /100 WBCs Normal 0.0-0.0 [facility] Comment on above: Performed By: #### 5 7021-8 ####IRVIN MUNGUIA ([id number])[facility] ([facility])[address] [place] [address] 69081 Platelets (Bld) [#/Vol] 450 x10*3/uL Normal 150-450 [facility] Comment on above: Performed By: #### 5 7021-8 ####IRVIN MUNGUIA ([id number])[facility] ([facility])[address] [place] [address] RBC (Bld) [#/Vol] 4.47 x10*6/uL Normal 4.00-5.[address] [facility] Comment on above: Performed By: #### 5 7021-8 ####IRVIN MUNGUIA ([id number])[facility] ([facility])[address] [place] [address] WBC (Bld) [#/Vol] 12.0 x10*3/uL High 4.4-11.[address] [facility] Comment on above: Performed By: #### 5 7021-8 ####IRVIN MUNGUIA ([id number])[facility] ([facility])[address] [place] [address] Coagulation tissue factor in ducedon 04-03-2024 PT Coag (PPP) [Time] 19.9 s High 9.8-12.[address] [facility] Comment on above: Performed By: #### 5 902-2 ####IRVIN MUNGUIA ([id number])[facility] ([facility])[address] [place] [address] Comprehensive metabolic 2000 panelon 04-03-2024 Albumin BCP dye [Mass/Vol] 4.1 g/dL Normal 3.4-5.0 [facility] Comment on above: Performed By: #### 2 4323-8 ####IRVIN MUNGUIA ([id number])[facility] ([facility])[address] [place] [address] ALP [Catalytic activity/Vol] 175 U/L High 33-110 [facility] Comment on above: Performed By: #### 2 4323-8 ####IRVIN MUNGUIA ([id number])[facility] ([facility])[address] [place] [address] ALT With P-5'-P [Catalytic activity/Vol] 29 U/L Normal 7-45 [facility] Comment on above: Result Comment: Evelyn ents treated with Sulfasalazine may generate falsely decreased results for ALT. Performed By: #### 2 4323-8 ####IRVIN MUNGUIA ([id number])[facility] ([facility])[address] [place] [address] Anion gap [Moles/Vol] 17 mmol/L Normal 10-20 [facility] Comment on above: Performed By: #### 2 4322-8 ####IRVIN MUNGUIA ([id number])[facility] ([facility])[address] [place] [address] 11165 AST With P-5'-P [Catalytic activity/Vol] 28 U/L Normal 9-39 [facility] Comment on above: Result Comment: MILD HEMOLYSIS DETECTED. The result may be falsely elevated due to hemolysis or other interferents. Clinical correlation is recommended. Repeat testing may be considered. Performed By: #### 2 4322-8 ####IRVIN MUNGUIA ([id number])[facility] ([facility])[address] [place] [address] 43023 Bilirubin [Mass/Vol] 0.2 mg/dL Normal 0.0-1.[address] [facility] Comment on above: Performed By: #### 2 4322-8 ####IRVIN MUNGUIA ([id number])[facility] ([facility])[address] [place] [address] 90741 Calcium [Mass/Vol] 9.3 mg/dL Normal 8.6-10.3 [facility] Comment on above: Performed By: #### 2 432-8 ####IRVIN MUNGUIA ([id number])[facility] ([facility])[address] [place] [address] 99184 Chloride [Moles/Vol] 99 mmol/L Normal 98-[address] [facility] Comment on above: Performed By: #### 2 3-8 ####IRVIN MUNGUIA ([id number])[facility] ([facility])[address] [place] [address] 18894 CO2 [Moles/Vol] 22 mmol/L Normal 21-32 [facility] Comment on above: Performed By: #### 2 4322-8 ####IRVIN MUNGUIA ([id number])[facility] ([facility])[address] [place] [address] 91421 Creatinine [Mass/Vol] 0.86 mg/dL Normal 0.50-1.05 [facility] Comment on above: Performed By: #### 2 4323-8 ####IRVIN MUNGUIA ([id number])[facility] ([facility])[address] [place] [address] 82432 Glomerular filtration rate/1.73 sq M.predicted 83 mL/min/1.73m*2 Normal >60 [facility] Comment on above: Result Comment: Calc ulations of estimated GFR are performed using the 2020 CKD-EPI Study Refit equation without the race variable for the IDMS-Traceable creatinine methods.https://jasn.asnjournals.org/content/early// [id number] Performed By: #### 2 4323-8 ####IRVIN MUNGUIA ([id number])[facility] ([facility])[address] [place] [address] 90083 Glucose [Mass/Vol] 207 mg/dL High 74-99 [facility] Comment on above: Performed By: #### 2 4323-8 ####IRVIN MUNGUIA ([id number])[facility] ([facility])[address] [place] [address] 14349 Potassium [Moles/Vol] 4.4 mmol/L Normal 3.5-5.3 [facility] Comment on above: Result Comment: MILD HEMOLYSIS DETECTED. The result may be falsely elevated due to hemolysis or other interferents. Clinical correlation is recommended. Repeat testing may be considered. Performed By: #### 2 4323-8 ####IRVIN MUNGUIA ([id number])[facility] ([facility])[address] [place] [address] 35888 Protein [Mass/Vol] 8.1 g/dL Normal 6.4-8.2 [facility] Comment on above: Performed By: #### 2 4323-8 ####IRVIN MUNGUIA ([id number])[facility] ([facility])[address] [place] [address] 13290 Sodium [Moles/Vol] 134 mmol/L Low 136-145 [facility] Comment on above: Performed By: #### 2 4323-8 ####IRVIN MUNGUIA ([id number])[facility] ([facility])[address] [place] [address] Urea nitrogen [Mass/Vol] 15 mg/dL Normal 6-23 [facility] Comment on above: Performed By: #### 2 4323-8 ####IRVIN MUNGUIA ([id number])[facility] ([facility])[address] [place] [address] 26037 Lactateon 04-03-2024 Lactate [Moles/Vol] 1.6 mmol/L Normal 0.4-2.0 [facility] Comment on above: Order Comment: Venip uncture immediately after or during the administration of Metamizole may lead to falsely low results. Testing should be performed immediatelyprior to Metamizole dosing. Performed By: #### 2 524-7 ####IRVIN MUNGUIA ([id number])[facility] ([facility])[address] [place] [address] 02724 Lactate [Moles/Vol] 2.1 mmol/L High 0.4-2.0 [facility] Comment on above: Order Comment: Venip uncture immediately after or during the administration of Metamizole may lead to falsely low results. Testing should be performed immediatelyprior to Metamizole dosing. Performed By: #### 2 524-7 ####IRVIN MUNGUIA ([id number])[facility] ([facility])[address] [place] [address] 64486 PT Coag (PPP) [Time]on 04-03 INR Coag (PPP) [Relative time] 1.7 High 0.9-1.1 [facility] Comment on above: Performed By: #### 5 902-2 ####IRVIN MUNGUIA ([id number])[facility] ([facility])[address] [place] [address] 81542 Triacylglycerol lipaseon Lipase [Catalytic activity/Vol] 55 U/L Normal 9-82 [facility] Comment on above: Order Comment: Venip uncture immediately after or during the administration of Metamizole may lead to falsely low results. Testing should be performed immediately prior to Metamizole dosing. Performed By: #### 3 040-3 ####IRVIN MUNGUIA ([id number])[facility] ([facility])[address] [place] [address] Urinalysis complete W Reflex Culture panel (U)on 04-03-2024 Appearance (U) Clear Normal Clear [facility] Comment on above: Performed By: #### 5 8077-9 ####IRVIN MUNGUIA ([id number])[facility] ([facility])[address] [place] [address] Bilirubin (U) [Mass/Vol] Negative Normal NEGATIVE [facility] Comment on above: Performed By: #### 5 8077-9 ####IRVIN MUNGUIA ([id number])[facility] ([facility])[address] [place] [address] Color (U) Light-Yellow Normal Light-Yellow , Yellow, Dark-Yellow [facility] Comment on above: Performed By: #### 5 8077-9 ####IRVIN MUNGUIA ([id number])[facility] ([facility])[address] [place] [address] Epithelial cells.squamous Auto (Urine sed) [#/Area] 1-9 (SPARSE) Normal Reference range not established. [facility] Comment on above: Performed By: #### 5 8077-9 ####IRVIN MUNGUIA ([id number])[facility] ([facility])[address] [place] [address] Glucose Auto test strip (U) [Mass/Vol] Normal Normal Normal [facility] Comment on above: Performed By: #### 5 8077-9 ####IRVIN MUNGUIA ([id number])[facility] ([facility])[address] [place] [address] Ketones (U) [Mass/Vol] Negative Normal NEGATIVE [facility] Comment on above: Performed By: #### 5 8077-9 ####IRVIN MUNGUIA ([id number])[facility] ([facility])[address] [place] [address] 04589 Leukocyte esterase Auto test strip Ql (U) Negative Normal NEGATIVE [facility] Comment on above: Performed By: #### 5 8077-9 ####IRVIN MUNGUIA ([id number])[facility] ([facility])[address] [place] [address] 74247 Mucus Auto (Urine sed) [#/Area] FEW Normal Reference range not established. [facility] Comment on above: Performed By: #### 5 8077-9 ####IRVIN MUNGUIA ([id number])[facility] ([facility])[address] [place] [address] 72247 Nitrite Auto test strip Ql (U) Negative Normal NEGATIVE [facility] Comment on above: Performed By: #### 5 8077-9 ####IRVIN MUNGUIA ([id number])[facility] ([facility])[address] [place] [address] 63941 pH (U) 6.0 [pH] Normal 5.0, 5.5, 6.0, 6.5, 7.0, 7.5, 8.0 [facility] Comment on above: Performed By: #### 5 8077-9 ####IRVIN MUNGUIA ([id number])[facility] ([facility])[address] [place] [address] 92233 Protein (U) [Mass/Vol] 10 (TRACE) Normal NEGATIVE, 10 (TRACE), 20 (TRACE) [facility] Comment on above: Performed By: #### 5 8077-9 ####IRVIN MUNGUIA ([id number])[facility] ([facility])[address] [place] [address] 31493 RBC (U) [#/Vol] Negative Normal NEGATIVE [facility] Comment on above: Performed By: #### 5 8077-9 ####IRVIN MUNGUIA ([id number])[facility] ([facility])[address] [place] [address] 32092 RBC Auto (Urine sed) [#/Area] NONE Normal NONE, 1-2, 3-5 [facility] Comment on above: Performed By: #### 5 8077-9 ####IRVIN MUNGUIA ([id number])[facility] ([facility])[address] [place] [address] Specific gravity (U) [Rel density] 1.025 Normal 1.005-1.035 [facility] Comment on above: Performed By: #### 5 8077-9 ####IRVIN MUNGUIA ([id number])[facility] ([facility])[address] [place] [address] Urobilinogen (U) [Mass/Vol] Normal Normal Normal [facility] Comment on above: Performed By: #### 5 8077-9 ####IRVIN MUNGUIA ([id number])[facility] ([facility])[address] [place] [address] WBC Auto (Urine sed) [#/Area] NONE Normal 1-5, NONE [facility] Comment on above: Performed By: #### 5 8077-9 ####IRVIN MUNGUIA ([id number])[facility] ([facility])[address] [place] [address] CBC W Auto Differential pane l (Bld)on 03-30-2024 Basophils (Bld) [#/Vol] 0.04 x10*3/uL Normal 0.00-0.10 [facility] Comment on above: Performed By: #### 5 7021-8 ####IRVIN MUNGUIA ([id number])[facility] ([facility])[address] [place], [place] [id number] Basophils/100 WBC (Bld) 0.3 % Normal 0.0-2.0 [facility] Comment on above: Performed By: #### 5 7021-8 ####IRVIN MUNGUIA ([id number])[facility] ([facility])[address] [place], [place] [id number] Eosinophils (Bld) [#/Vol] 0.08 x10*3/uL Normal 0.00-0.70 [facility] Comment on above: Performed By: #### 5 7021-8 ####IRVIN MUNGUIA ([id number])[facility] ([facility])[address] [place] [address] Eosinophils/100 WBC (Bld) 0.6 % Normal 0.0-6.0 [facility] Comment on above: Performed By: #### 5 7021-8 ####IRVIN MUNGUIA ([id number])[facility] ([facility])[address] [place] [address] Erythrocyte distribution width (RBC) [Ratio] 14.0 % Normal 11.5-14.5 [facility] Comment on above: Performed By: #### 5 7021-8 ####IRVIN MUNGUIA ([id number])[facility] ([facility])[address] [place] [address] Hematocrit (Bld) [Volume fraction] 34.3 % Low 36.0-46.0 [facility] Comment on above: Performed By: #### 5 7021-8 ####IRVIN MUNGUIA ([id number])[facility] ([facility])[address] [place] [address] [id number] Hemoglobin (Bld) [Mass/Vol] 10.4 g/dL Low 12.0-16.0 [facility] Comment on above: Performed By: #### 5 7021-8 ####IRVIN MUNGUIA ([id number])[facility] ([facility])[address] [place] [address] Immature granulocytes (Bld) [#/Vol] 0.09 x10*3/uL Normal 0.00-0.70 [facility] Comment on above: Performed By: #### 5 7021-8 ####IRVIN MUNGUIA ([id number])[facility] ([facility])[address] [place] [address]13 Immature granulocytes/100 WBC (Bld) 0.7 % Normal 0.0-0.9 [facility] [place] Comment on above: Result Comment: Debbie ture Granulocyte Count (IG) includes promyelocytes, myelocytes and metamyelocytes but does not include bands. Percent differential counts (%) should be interpreted in the context of the absolute cell counts (cells/UL). Performed By: #### 5 7021-8 ####IRVIN MUNGUIA ([id number])[facility] ([facility])[address] [place] [address] 53506 Lymphocytes (Bld) [#/Vol] 2.47 x10*3/uL Normal 1.20-4.80 [facility] Comment on above: Performed By: #### 5 7021-8 ####IRVIN MUNGUIA ([id number])[facility] ([facility])[address] [place] [address] 36323 Lymphocytes/100 WBC (Bld) 19.7 % Normal 13.0-44.0 [facility] Comment on above: Performed By: #### 5 7021-8 ####IRVIN MUNGUIA ([id number])[facility] ([facility])[address] [place] [address] 55549 MCH (RBC) [Entitic mass] 26.0 pg Normal 26.0-34.0 [facility] Comment on above: Performed By: #### 5 7021-8 ####IRVIN MUNGUIA ([id number])[facility] ([facility])[address] [place] [address] 99165 MCHC (RBC) [Mass/Vol] 30.3 g/dL Low 32.0-36.0 [facility] Comment on above: Performed By: #### 5 7021-8 ####IRVIN MUNGUIA ([id number])[facility] ([facility])[address] [place] [address] 38102 MCV (RBC) [Entitic vol] 86 fL Normal 80-100 [facility] Comment on above: Performed By: #### 5 7021-8 ####IRVIN MUNGUIA ([id number])[facility] ([facility])[address] [place] [address] 38285 Monocytes (Bld) [#/Vol] 0.64 x10*3/uL Normal 0.10-1.00 [facility] Comment on above: Performed By: #### 5 7021-8 ####IRVIN MUNGUIA ([id number])[facility] ([facility])[address] [place] [address] 43773 Monocytes/100 WBC (Bld) 5.1 % Normal 2.0-10.0 [facility] Comment on above: Performed By: #### 5 7021-8 ####IRVIN MUNGUIA ([id number])[facility] ([facility])[address] [place] [address] 29691 Neutrophils (Bld) [#/Vol] 9.19 x10*3/uL High 1.20-7.70 [facility] Comment on above: Result Comment: Perc ent differential counts (%) should be interpreted in the context of the absolute cell counts (cells/uL). Performed By: #### 5 7021-8 ####IRVIN MUNGUIA ([id number])[facility] ([facility])[address] [place] [address] 28910 Neutrophils/100 WBC (Bld) 73.6 % Normal 40.0-80.0 [facility] Comment on above: Performed By: #### 5 7021-8 ####IRVIN MUNGUIA ([id number])[facility] ([facility])[address] [place] [address] 38285 Nucleated RBC/100 WBC (Bld) [Ratio] 0.0 /100 WBCs Normal 0.0-0.0 [facility] Comment on above: Performed By: #### 5 7021-8 ####IRVIN MUNGUIA ([id number])[facility] ([facility])[address] [place] [address] 56594 Platelets (Bld) [#/Vol] 332 x10*3/uL Normal 150-450 [facility] Comment on above: Result Comment: Plat elet count verified by smear review. Performed By: #### 5 7021-8 ####IRVIN MUNGUIA ([id number])[facility] ([facility])[address] [place] [address] 84071 RBC (Bld) [#/Vol] 4.00 x10*6/uL Normal 4.00-5.[address] [facility] Comment on above: Performed By: #### 5 7021-8 ####IRVIN MUNGUIA ([id number])[facility] ([facility] [place] [address] WBC (Bld) [#/Vol] 12.5 x10*3/uL High 4.4-11.[address] [facility] Comment on above: Performed By: #### 5 7021-8 ####IRVIN MUNGUIA ([id number])[facility] ([facility])[address] [place] [address] Comprehensive metabolic 2000 panelon 03-30-2024 Albumin BCP dye [Mass/Vol] 3.8 g/dL Normal 3.4-5.0 [facility] Comment on above: Performed By: #### 2 4323-8 ####IRVIN MUNGUIA ([id number])[facility] ([facility])[address] [place] [address] ALP [Catalytic activity/Vol] 140 U/L High 33-110 [facility] Comment on above: Performed By: #### 2 4323-8 ####IRVIN MUNGUIA ([id number])[facility] ([facility])[address] [place] [address] 99699 ALT With P-5'-P [Catalytic activity/Vol] 24 U/L Normal 7-45 [facility] Comment on above: Result Comment: Evelyn ents treated with Sulfasalazine may generate falsely decreased results for ALT. Performed By: #### 2 4323-8 ####IRVIN MUNGUIA ([id number])[facility] ([facility])[address] [place] [address] 46632 Anion gap [Moles/Vol] 15 mmol/L Normal 10-20 [facility] Comment on above: Performed By: #### 2 4323-8 ####IRVIN MNUGUIA ([id number])[facility] ([facility])[address] [place] [address] 68004 AST With P-5'-P [Catalytic activity/Vol] 19 U/L Normal 9-39 [facility] Comment on above: Performed By: #### 2 4323-8 ####IRVIN MUNGUIA ([id number])[facility] ([facility])[address] [place] [address] Bilirubin [Mass/Vol] 0.3 mg/dL Normal 0.0-1.[address] [facility] Comment on above: Performed By: #### 2 4323-8 ####IRVIN MUNGUIA ([id number])[facility] ([facility])[address] [place] [address] 74720 Calcium [Mass/Vol] 8.7 mg/dL Normal 8.6-10.3 [facility] Comment on above: Performed By: #### 2 4323-8 ####IRVIN MUNGUIA ([id number])[facility] ([facility])[address] [place] [address] 93670 Chloride [Moles/Vol] 101 mmol/L Normal 98-[address] [facility] Comment on above: Performed By: #### 2 4323-8 ####IRVIN MUNGUIA ([id number])[facility] ([facility])[address] [place] [address] 05503 CO2 [Moles/Vol] 23 mmol/L Normal 21-32 [facility] Comment on above: Performed By: #### 2 4323-8 ####IRVIN MUNGUIA ([id number])[facility] ([facility])[address] [place] [address] 83659 Creatinine [Mass/Vol] 0.72 mg/dL Normal 0.50-1.05 [facility] Comment on above: Performed By: #### 2 4323-8 ####IRVIN MUNGUIA ([id number])[facility] ([facility])[address] [place] [address] 94382 GFR/1.73 sq M.predicted MDRD (S/P/Bld) [Vol rate/Area] mL/min/{1.73_m2} Normal >60 [facility] Comment on above: Result Comment: Calc ulations of estimated GFR are performed using the 2020 CKD-EPI Study Refit equation without the race variable for the IDMS-Traceable creatinine methods.https://jasn.asnjournals.org/content/early/ N.7495513232 Performed By: #### 2 4323-8 ####IRVIN MUNGUIA ([id number])[facility] ([facility])[address] [place] [address] 14374 Glucose [Mass/Vol] 173 mg/dL High 74-99 [facility] Comment on above: Performed By: #### 2 4323-8 ####IRVIN MUNGUIA ([id number])[facility] ([facility])[address] [place] [address] 79933 Potassium [Moles/Vol] 3.5 mmol/L Normal 3.5-5.3 [facility] Comment on above: Performed By: #### 2 4323-8 ####IRVIN MUNGUIA ([id number])[facility] ([facility])[address] [place] [address] 01220 Protein [Mass/Vol] 7.4 g/dL Normal 6.4-8.2 [facility] Comment on above: Performed By: #### 2 4323-8 ####IRVIN MUNGUIA ([id number])[facility] ([facility])[address] [place] [address] 80328 Sodium [Moles/Vol] 135 mmol/L Low 136-145 [facility] Comment on above: Performed By: #### 2 4323-8 ####IRVIN MUNGUIA ([id number])[facility] ([facility])[address] [place] [address] 80414 Urea nitrogen [Mass/Vol] 12 mg/dL Normal 6-23 [facility] Comment on above: Performed By: #### 2 4323-8 ####IRVIN MUNGUIA ([id number])[facility] ([facility])[address] [place] [address] 11605 Lactateon 03-30-2024 Lactate [Moles/Vol] 1.6 mmol/L Normal 0.4-2.0 [facility] Comment on above: Order Comment: Venip uncture immediately after or during the administration of Metamizole may lead to falsely low results. Testing should be performed immediatelyprior to Metamizole dosing. Performed By: #### 2 524-7 ####IRVIN MUNGUIA ([id number])[facility] ([facility])[address] [place] [address] 46080 Lactate [Moles/Vol] 2.5 mmol/L High 0.4-2.0 [facility] Comment on above: Order Comment: Venip uncture immediately after or during the administration of Metamizole may lead to falsely low results. Testing should be performed immediatelyprior to Metamizole dosing. Performed By: #### 2 524-7 ####IRVIN MUNGUIA ([id number])[facility] ([facility])[address] [place] [address] 68090 Triacylglycerol lipaseon Lipase [Catalytic activity/Vol] 57 U/L Normal 9-82 [facility] Comment on above: Order Comment: Venip uncture immediately after or during the administration of Metamizole may lead to falsely low results. Testing should be performed immediately prior to Metamizole dosing. Performed By: #### 3 040-3 ####IRVIN MUNGUIA ([id number])[facility] ([facility])[address] [place] [address] 63978 CBC W Auto Differential pane l (Bld)on 03-24-2024 Basophils (Bld) [#/Vol] 0.03 x10*3/uL Normal 0.00-0.10 [facility] Comment on above: Performed By: #### 5 7021-8 ####ANDI Cotter ([id number])[facility] ([facility])[address] [place] [address] Basophils/100 WBC (Bld) 0.7 % Normal 0.0-2.0 [facility] Comment on above: Performed By: #### 5 7021-8 ####ANDI Cotter ([id number])[facility] ([facility])[address] [place] [address] Eosinophils (Bld) [#/Vol] 0.10 x10*3/uL Normal 0.00-0.70 [facility] Comment on above: Performed By: #### 5 7021-8 ####ANDI Cotter ([id number])[facility] ([facility])[address] [place] [address] 63959 Eosinophils/100 WBC (Bld) 2.2 % Normal 0.0-6.0 [facility] Comment on above: Performed By: #### 5 7021-8 ####ANDI Cotter ([id number])[facility] ([facility])[address] [place] [address] 17659 Erythrocyte distribution width (RBC) [Ratio] 14.2 % Normal 11.5-14.5 [facility] Comment on above: Performed By: #### 5 7021-8 ####ANDI Cotter ([id number])[facility] ([facility])[address] [place] [address] 36242 Hematocrit (Bld) [Volume fraction] 43.5 % Normal 36.0-46.0 [facility] Comment on above: Performed By: #### 5 7021-8 ####ANDI Cotter ([id number])[facility] ([facility])[address] [place] [address] 31335 Hemoglobin (Bld) [Mass/Vol] 13.4 g/dL Normal 12.0-16.0 [facility] Comment on above: Performed By: #### 5 7021-8 ####ANDI Cotter ([id number])[facility] ([facility])[address] [place] [address] 45233 Immature granulocytes (Bld) [#/Vol] 0.07 x10*3/uL Normal 0.00-0.70 [facility] Comment on above: Performed By: #### 5 7021-8 ####ANDI CHAUDHARY L ([id number])[facility] ([facility])[address] [place] [address] 09712 Immature granulocytes/100 WBC (Bld) 1.5 % High 0.0-0.9 [facility] Comment on above: Result Comment: Debbie ture Granulocyte Count (IG) includes promyelocytes, myelocytes and metamyelocytes but does not include bands. Percent differential counts (%) should be interpreted in the context of the absolute cell counts (cells/UL). Performed By: #### 5 7021-8 ####ANDI Cotter ([id number])[facility] ([facility])[address] [place] [address] Lymphocytes (Bld) [#/Vol] 1.16 x10*3/uL Low 1.20-4.80 [facility] Comment on above: Performed By: #### 5 7021-8 ####ANDI Cotter ([id number])[facility] ([facility])[address] [place] [address] Lymphocytes/100 WBC (Bld) 25.6 % Normal 13.0-44.0 [facility] Comment on above: Performed By: #### 5 7021-8 ####ANDI Cotter ([id number])[facility] ([facility])[address] [place] [address] MCH (RBC) [Entitic mass] 26.3 pg Normal 26.0-34.0 [facility] Comment on above: Performed By: #### 5 7021-8 ####ANDI Cotter ([id number])[facility] ([facility])[address] [place] [address] MCHC (RBC) [Mass/Vol] 30.8 g/dL Low 32.0-36.0 [facility] Comment on above: Performed By: #### 5 7021-8 ####ANDI Cotter ([id number])[facility] ([facility])[address] [place] [address] MCV (RBC) [Entitic vol] 86 fL Normal 80-100 [facility] Comment on above: Performed By: #### 5 7021-8 ####ANDI Cotter ([id number])[facility] ([facility])[address] [place] [address] Monocytes (Bld) [#/Vol] 0.28 x10*3/uL Normal 0.10-1.00 [facility] Comment on above: Performed By: #### 5 7021-8 ####ANDI Cotter ([id number])[facility] ([facility])[address] [place] [address] Monocytes/100 WBC (Bld) 6.2 % Normal 2.0-10.0 [facility] Comment on above: Performed By: #### 5 7021-8 ####ANDI Cotter ([id number])[facility] ([facility])[address] [place] [address] Neutrophils (Bld) [#/Vol] 2.89 x10*3/uL Normal 1.20-7.70 [facility] Comment on above: Result Comment: Perc ent differential counts (%) should be interpreted in the context of the absolute cell counts (cells/uL). Performed By: #### 5 7021-8 ####ANDI Cotter ([id number])[facility] ([facility])[address] [place] [address] Neutrophils/100 WBC (Bld) 63.8 % Normal 40.0-80.0 [facility] Comment on above: Performed By: #### 5 7021-8 ####ANDI Cotter ([id number])[facility] ([facility])[address] [place] [address] 74880 Nucleated RBC/100 WBC (Bld) [Ratio] 0.0 /100 WBCs Normal 0.0-0.0 [facility] Comment on above: Performed By: #### 5 7021-8 ####ANDI CHAUDHARY L ([id number])[facility] ([facility])[address] [place] [address] Platelets (Bld) [#/Vol] 190 x10*3/uL Normal 150-450 [facility] Comment on above: Performed By: #### 5 7021-8 ####ANDI Cotter ([id number])[facility] ([facility])[address] [place] [address] RBC (Bld) [#/Vol] 5.09 x10*6/uL Normal 4.00-5.[address] [facility] Comment on above: Performed By: #### 5 7021-8 ####ANDI Cotter ([id number])[facility] ([facility])[address] [place] [address] WBC (Bld) [#/Vol] 4.5 x10*3/uL Normal 4.4-11.3 [facility] Comment on above: Performed By: #### 5 7021-8 ####ANDI Cotter ([id number])[facility] ([facility])[address] [place] [address] Comprehensive metabolic 2000 panelon 03-24-2024 Albumin BCP dye [Mass/Vol] 3.6 g/dL Normal 3.4-5.0 [facility] Comment on above: Performed By: #### 2 4323-8 ####ANDI Cotter ([id number])[facility] ([facility])[address] [place] [address] ALP [Catalytic activity/Vol] 166 U/L High 33-110 [facility] Comment on above: Performed By: #### 2 4323-8 ####ANDI Cotter ([id number])[facility] ([facility])[address] [place] [address] ALT With P-5'-P [Catalytic activity/Vol] 35 U/L Normal 7-45 [facility] Comment on above: Result Comment: Evelyn ents treated with Sulfasalazine may generate falsely decreased results for ALT. Performed By: #### 2 4323-8 ####ANDI Cotter ([id number])[facility] ([facility])[address] [place] [address] Anion gap [Moles/Vol] 12 mmol/L Normal 10-20 [facility] Comment on above: Performed By: #### 2 4323-8 ####ANDI Cotter ([id number])[facility] ([facility])[address] [place] [address] AST With P-5'-P [Catalytic activity/Vol] 13 U/L Normal 9-39 [facility] Comment on above: Performed By: #### 2 4323-8 ####ANDI Cotter ([id number])[facility] ([facility])[address] [place] [address] Bilirubin [Mass/Vol] 0.3 mg/dL Normal 0.0-1.[address] [facility] Comment on above: Performed By: #### 2 4323-8 ####ANDI Cotter ([id number])[facility] ([facility])[address] [place] [address] Calcium [Mass/Vol] 9.2 mg/dL Normal 8.6-10.6 [facility] Comment on above: Performed By: #### 2 4323-8 ####ANDI Cotter ([id number])[facility] ([facility])[address] [place] [address] Chloride [Moles/Vol] 101 mmol/L Normal 98-[address] [facility] Comment on above: Performed By: #### 2 4323-8 ####ANDI Cotter ([id number])[facility] ([facility])[address] [place] [address] CO2 [Moles/Vol] 26 mmol/L Normal 21-32 [facility] Comment on above: Performed By: #### 2 4323-8 ####ANDI Cotter ([id number])[facility] ([facility])[address] [place] [address] Creatinine [Mass/Vol] 0.54 mg/dL Normal 0.50-1.05 [facility] Comment on above: Performed By: #### 2 4323-8 ####ANDI Cotter ([id number])[facility] ([facility])[address] [place] [address] GFR/1.73 sq M.predicted MDRD (S/P/Bld) [Vol rate/Area] mL/min/{1.73_m2} Normal >60 [facility] Comment on above: Result Comment: Calc ulations of estimated GFR are performed using the 2020 CKD-EPI Study Refit equation without the race variable for the IDMS-Traceable creatinine methods.https://jasn.asnjournals.org/content// N.5525230091 Performed By: #### 2 4323-8 ####ANDI MADRIDTZER L ([id number])[facility] ([facility])[address] [place] [address] Glucose [Mass/Vol] 164 mg/dL High 74-99 [facility] Comment on above: Performed By: #### 2 4323-8 ####ANDI RAJPUTMOTZER L ([id number])[facility] ([facility])[address] [place] [address] Potassium [Moles/Vol] 3.6 mmol/L Normal 3.5-5.3 [facility] Comment on above: Performed By: #### 2 4323-8 ####ANDI SCHMOTZER L ([id number])[facility] ([facility])[address] [place] [address] Protein [Mass/Vol] 6.9 g/dL Normal 6.4-8.2 [facility] Comment on above: Performed By: #### 2 4323-8 ####ANDI SCHMOTZER L (64156)[facility] ([facility])[address] [place] [address] Sodium [Moles/Vol] 135 mmol/L Low 136-145 [facility] Comment on above: Performed By: #### 2 4323-8 ####ANDI SCHMOTZER L ([id number])[facility] ([facility])[address] [place] [address] Urea nitrogen [Mass/Vol] 11 mg/dL Normal 6-23 [facility] Comment on above: Performed By: #### 2 4323-8 ####ANDI SCHMOTZER L ([id number])[facility] ([facility])[address] [place] [address] Glucose Test strip manual (B ld) [Mass/Vol]on 03-24-2024 Glucose [Mass/Vol] 150 mg/dL High 74-99 [facility] Comment on above: Performed By: #### 2 341-6 ####ANDI Cotter ([id number])[facility] ([facility])[address] [place] [address] Glucose [Mass/Vol] 192 mg/dL High 74-99 [facility] Comment on above: Performed By: #### 2 341-6 ####ANDI Cotter ([id number])[facility] ([facility])[address] [place] [address] Heparin.unfractionatedon Heparin unfractionated Chromogenic method Qn (PPP) 0.4 IU/mL Normal See Comment Below for Therapeutic Ranges [facility] Comment on above: [...] please refer to local Pharmacy and the [facility] Guidelines for Anticoagulation Therapy available on the [facility] intranet at: [email or web address] Performed By: #### 3 274-8 ####ANDI Cotter ([id number])[facility] ([facility])[address] [place] [address] Magnesiumon 03-24-2024 Magnesium [Mass/Vol] 1.82 mg/dL Normal 1.60-2.[address] [facility] Comment on above: Performed By: #### 1 9123-9 ####ANDI Cotter ([id number])[facility] ([facility])[address] [place] [address] PT and aPTT panel Coag (PPP) on 03-24-2024 aPTT Coag (PPP) [Time] 37 s Normal 27-38 [facility] Comment on above: Order Comment: The A PTT is no longer used for monitoring Unfractionated Heparin Therapy. For monitoring Heparin Therapy, use the Heparin Assay. Performed By: #### 3 4529-8 ####ANDI Cotter ([id number])[facility] ([facility])[address] [place] [address] INR Coag (PPP) [Relative time] 1.3 High 0.9-1.1 [facility] Comment on above: Order Comment: The A PTT is no longer used for monitoring Unfractionated Heparin Therapy. For monitoring Heparin Therapy, use the Heparin Assay. Performed By: #### 3 4529-8 ####ANDI Cotter ([id number])[facility] ([facility])[address] [place] [address] 601[address] PT Coag (PPP) [Time] 14.2 s High 9.8-12.[address] [facility] Comment on above: Order Comment: The A PTT is no longer used for monitoring Unfractionated Heparin Therapy. For monitoring Heparin Therapy, use the Heparin Assay. Performed By: #### 3 4529-8 ####ANDI Cotter ([id number])[facility] ([facility])[address] [place] [address] 16010 Phosphateon 03-24-2024 Phosphate [Mass/Vol] 4.6 mg/dL Normal 2.5-4.[address] [facility] Comment on above: Result Comment: The performance characteristics of phosphorus testing in heparinized plasma have been validated by the individual laboratory site where testing is performed. Testing on heparinized plasma is not approved by the FDA; however, such approval is not necessary. Performed By: #### 2 777-1 ####ANDI Cotter ([id number])[facility] ([facility])[address] [place] [address] 594[address] CBC W Auto Differential pane l (Bld)on 03-23-2024 Basophils (Bld) [#/Vol] 0.05 x10*3/uL Normal 0.00-0.10 [facility] Comment on above: Performed By: #### 5 7021-8 ####ANDI Cotter ([id number])[facility] ([facility])[id number] [place] [address] [id number] Basophils/100 WBC (Bld) 0.6 % Normal 0.0-2.0 [facility] Comment on above: Performed By: #### 5 7021-8 ####ANDI CHAUDHARY L ([id number])[facility] ([facility])[address] [place] [address] 48708 Eosinophils (Bld) [#/Vol] 0.20 x10*3/uL Normal 0.00-0.70 [facility] Comment on above: Performed By: #### 5 7021-8 ####ANDI CHAUDHARY L ([id number])[facility] ([facility])[address] [place] [address] 01409 Eosinophils/100 WBC (Bld) 2.2 % Normal 0.0-6.0 [facility] Comment on above: Performed By: #### 5 7021-8 ####ANDI Cotter ([id number])[facility] ([facility])[address] [place] [address] [phone] Erythrocyte distribution width (RBC) [Ratio] 14.2 % Normal 11.5-14.5 [facility] Comment on above: Performed By: #### 5 7021-8 ####ANDI Cotter ([id number])[facility] ([facility])[address] [place] [address] 84850 Hematocrit (Bld) [Volume fraction] 32.6 % Low 36.0-46.0 [facility] Comment on above: Performed By: #### 5 7021-8 ####ANDI CHAUDHARY L ([id number])[facility] ([facility])[address] [place] [address] Hemoglobin (Bld) [Mass/Vol] 10.2 g/dL Low 12.0-16.0 [facility] Comment on above: Performed By: #### 5 7021-8 ####ANDI Cotter ([id number])[facility] ([facility])[address] [place] [address] Immature granulocytes (Bld) [#/Vol] 0.07 x10*3/uL Normal 0.00-0.70 [facility] Comment on above: Performed By: #### 5 7021-8 ####ANDI Cotter ([id number])[facility] ([facility])[address] [place] [address] Immature granulocytes/100 WBC (Bld) 0.8 % Normal 0.0-0.9 [facility] Comment on above: Result Comment: Debbie ture Granulocyte Count (IG) includes promyelocytes, myelocytes and metamyelocytes but does not include bands. Percent differential counts (%) should be interpreted in the context of the absolute cell counts (cells/UL). Performed By: #### 5 7021-8 ####ANDI Cotter ([id number])[facility] ([facility])[address] [place] [address] Lymphocytes (Bld) [#/Vol] 2.00 x10*3/uL Normal 1.20-4.80 [facility] Comment on above: Performed By: #### 5 7021-8 ####ANDI Cotter ([id number])[facility] ([facility])[address] [place] [address] Lymphocytes/100 WBC (Bld) 22.1 % Normal 13.0-44.0 [facility] Comment on above: Performed By: #### 5 7021-8 ####ANDI Cotter ([id number])[facility] ([facility])[address] [place] [address] MCH (RBC) [Entitic mass] 27.2 pg Normal 26.0-34.0 [facility] Comment on above: Performed By: #### 5 7021-8 ####ANDI Cotter ([id number])[facility] ([facility])[address] [place] [address] MCHC (RBC) [Mass/Vol] 31.3 g/dL Low 32.0-36.0 [facility] Comment on above: Performed By: #### 5 7021-8 ####ANDI Cotter ([id number])[facility] ([facility])[address] [place] [address] MCV (RBC) [Entitic vol] 87 fL Normal 80-100 [facility] Comment on above: Performed By: #### 5 7021-8 ####ANDI Cotter ([id number])[facility] ([facility])[address] [place] [address] Monocytes (Bld) [#/Vol] 0.58 x10*3/uL Normal 0.10-1.00 [facility] Comment on above: Performed By: #### 5 7021-8 ####ANDI Cotter ([id number])[facility] ([facility])[address] [place] [address] Monocytes/100 WBC (Bld) 6.4 % Normal 2.0-10.0 [facility] Comment on above: Performed By: #### 5 7021-8 ####ANDI Cotter ([id number])[facility] ([facility])[address] [place] [address] Neutrophils (Bld) [#/Vol] 6.16 x10*3/uL Normal 1.20-7.70 [facility] Comment on above: Result Comment: Perc ent differential counts (%) should be interpreted in the context of the absolute cell counts (cells/uL). Performed By: #### 5 7021-8 ####ANDI Cotter ([id number])[facility] ([facility])[address] [place] [address] Neutrophils/100 WBC (Bld) 67.9 % Normal 40.0-80.0 [facility] Comment on above: Performed By: #### 5 7021-8 ####ANDI RAJPUTMOFIDELINA Cotter ([id number])[facility] ([facility])[address] [place] [address] Nucleated RBC/100 WBC (Bld) [Ratio] 0.0 /100 WBCs Normal 0.0-0.0 [facility] Comment on above: Performed By: #### 5 7021-8 ####ANDI Cotter ([id number])[facility] ([facility])[address] [place] [address] Platelets (Bld) [#/Vol] 291 x10*3/uL Normal 150-450 [facility] Comment on above: Performed By: #### 5 7021-8 ####ANDI Cotter ([id number])[facility] ([facility])[address] [place] [address] RBC (Bld) [#/Vol] 3.75 x10*6/uL Low 4.00-5.[address] [facility] Comment on above: Performed By: #### 5 7021-8 ####ANDI Cotter ([id number])[facility] ([facility])[address] [place] [address] WBC (Bld) [#/Vol] 9.1 x10*3/uL Normal 4.4-11.3 [facility] Comment on above: Performed By: #### 5 7021-8 ####ANDI Cotter ([id number])[facility] ([facility])[address] [place] [address] Comprehensive metabolic 2000 panelon 03-23-2024 Albumin BCP dye [Mass/Vol] 3.6 g/dL Normal 3.4-5.0 [facility] Comment on above: Performed By: #### 2 4323-8 ####ANDI Cotter ([id number])[facility] ([facility])[address] [place] [address] ALP [Catalytic activity/Vol] 195 U/L High 33-110 [facility] Comment on above: Performed By: #### 2 4323-8 ####ANDI Cotter ([id number])[facility] ([facility])[address] [place] [address] ALT With P-5'-P [Catalytic activity/Vol] 49 U/L High 7-45 [facility] Comment on above: Result Comment: Evelyn ents treated with Sulfasalazine may generate falsely decreased results for ALT. Performed By: #### 2 4323-8 ####ANDI Cotter ([id number])[facility] ([facility])[address] [place] [address] Anion gap [Moles/Vol] 18 mmol/L Normal 10-20 [facility] Comment on above: Performed By: #### 2 4323-8 ####ANDI Cotter ([id number])[facility] ([facility])[address] [place] [address] AST With P-5'-P [Catalytic activity/Vol] 17 U/L Normal 9-39 [facility] Comment on above: Performed By: #### 2 4323-8 ####ANDI Cotter ([id number])[facility] ([facility])[address] [place] [address] Bilirubin [Mass/Vol] 0.3 mg/dL Normal 0.0-1.[address] [facility] Comment on above: Performed By: #### 2 4323-8 ####ANDI Cotter ([id number])[facility] ([facility])[address] [place] [address] Calcium [Mass/Vol] 9.4 mg/dL Normal 8.6-10.6 [facility] Comment on above: Performed By: #### 2 4323-8 ####ANDI Cotter ([id number])[facility] ([facility])[address] [place] [address] Chloride [Moles/Vol] 96 mmol/L Low 98-[address] [facility] Comment on above: Performed By: #### 2 4323-8 ####ANDI Cotter ([id number])[facility] ([facility])[address] [place] [address] CO2 [Moles/Vol] 23 mmol/L Normal 21-32 [facility] Comment on above: Performed By: #### 2 4323-8 ####ANDI Cotter ([id number])[facility] ([facility])[address] [place] [address] Creatinine [Mass/Vol] 0.61 mg/dL Normal 0.50-1.05 [facility] Comment on above: Performed By: #### 2 4323-8 ####ANDI Cotter ([id number])[facility] ([facility])[address] [place] [address] GFR/1.73 sq M.predicted MDRD (S/P/Bld) [Vol rate/Area] mL/min/{1.73_m2} Normal >60 [facility] Comment on above: Result Comment: Calc ulations of estimated GFR are performed using the 2020 CKD-EPI Study Refit equation without the race variable for the IDMS-Traceable creatinine methods.https://jasn.asnjournals.org/content/early/ N.1394262329 Performed By: #### 2 4323-8 ####ANDI Cotter ([id number])[facility] ([facility])[address] [place] [address] Glucose [Mass/Vol] 139 mg/dL High 74-99 [facility] Comment on above: Performed By: #### 2 4323-8 ####ANDI Cotter ([id number])[facility] ([facility])[address] [place] [address] Potassium [Moles/Vol] 3.7 mmol/L Normal 3.5-5.3 [facility] Comment on above: Performed By: #### 2 4323-8 ####ANDI Cotter ([id number])[facility] ([facility])[address] [place] [address] Protein [Mass/Vol] 7.4 g/dL Normal 6.4-8.2 [facility] Comment on above: Performed By: #### 2 4323-8 ####ANDI Cotter ([id number])[facility] ([facility])[address] [place] [address] Sodium [Moles/Vol] 133 mmol/L Low 136-145 [facility] Comment on above: Performed By: #### 2 4323-8 ####ANDI Cotter ([id number])[facility] ([facility])[address] [place] [address] Urea nitrogen [Mass/Vol] 12 mg/dL Normal 6-23 [facility] Comment on above: Performed By: #### 2 4323-8 ####ANDI Cotter ([id number])[facility] ([facility])[address] [place] [address] Glucose Test strip manual (B ld) [Mass/Vol]on 03-23-2024 Glucose [Mass/Vol] 154 mg/dL High 74-99 [facility] Comment on above: Performed By: #### 2 341-6 ####ANDI Cotter ([id number])[facility] ([facility])[address] [place] [address] Glucose [Mass/Vol] 155 mg/dL High 74-99 [facility] Comment on above: Performed By: #### 2 341-6 ####ANDI Cotter ([id number])[facility] ([facility])[address] [place] [address] Glucose [Mass/Vol] 139 mg/dL High 74-99 [facility] Comment on above: Performed By: #### 2 341-6 ####ANDI Cotter ([id number])[facility] ([facility])[address] [place] [address] Glucose [Mass/Vol] 138 mg/dL High 74-99 [facility] Comment on above: Performed By: #### 2 341-6 ####ANDI Cotter ([id number])[facility] ([facility])[address] [place] [address] Heparin.unfractionatedon Heparin unfractionated Chromogenic method Qn (PPP) 0.5 IU/mL Normal See Comment Below for Therapeutic Ranges [facility] Comment on above: [...] results, please refer to local Pharmacy and [facility] Guidelines for Anticoagulation Therapy available on the [facility] intranet at: [email or web address] Performed By: #### 3 274-8 ####ANDI Cotter ([id number])[facility] ([facility])[address] [place] [address] Heparin unfractionated Chromogenic method Qn (PPP) 0.1 IU/mL Normal See Comment Below for Therapeutic Ranges [facility] Comment on above: [...] please refer to local Pharmacy and the [facility] Guidelines for Anticoagulation Therapy available on the [facility] intranet at: [email or web address] Performed By: #### 3 274-8 ####ANDI Cotter ([id number])[facility] ([facility])[address] [place] [address] Magnesiumon 03-23-2024 Magnesium [Mass/Vol] 1.74 mg/dL Normal 1.60-2.[address] [facility] Comment on above: Performed By: #### 1 9123-9 ####ANDI Cotetr ([id number])[facility] ([facility])[address] [place] [address] PT and aPTT panel Coag (PPP) on 03-23-2024 aPTT Coag (PPP) [Time] 39 s High 27-38 [facility] Comment on above: Order Comment: The A PTT is no longer used for monitoring Unfractionated Heparin Therapy. For monitoring Heparin Therapy, use the Heparin Assay. Performed By: #### 3 4529-8 ####ANDI Cotter ([id number])[facility] ([facility])[address] [place] [address] INR Coag (PPP) [Relative time] 1.1 Normal 0.9-1.1 [facility] Comment on above: Order Comment: The A PTT is no longer used for monitoring Unfractionated Heparin Therapy. For monitoring Heparin Therapy, use the Heparin Assay. Performed By: #### 3 4529-8 ####ANDI Cotter ([id number])[facility] ([facility])[address] [place] [address] PT Coag (PPP) [Time] 12.6 s Normal 9.8-12.[address] [facility] Comment on above: Order Comment: The A PTT is no longer used for monitoring Unfractionated Heparin Therapy. For monitoring Heparin Therapy, use the Heparin Assay. Performed By: #### 3 4529-8 ####ANDI Cotter ([id number])[facility] ([facility])[address] [place] [address] Phosphateon 03-23-2024 Phosphate [Mass/Vol] 5.4 mg/dL High 2.5-4.[address] [facility] Comment on above: Result Comment: The performance characteristics of phosphorus testing in heparinized plasma have been validated by the individual laboratory site where testing is performed. Testing on heparinized plasma is not approved by the FDA; however, such approval is not necessary. Performed By: #### 2 777-1 ####ANDI Cotter ([id number])[facility] ([facility])[address] [place] [address] CBC W Auto Differential pane l (Bld)on 03-22-2024 Basophils (Bld) [#/Vol] 0.02 x10*3/uL Normal 0.00-0.10 [facility] Comment on above: Performed By: #### 5 7021-8 ####ANDI Cotter ([id number])[facility] ([facility])[address] [place] [address] Basophils/100 WBC (Bld) 0.2 % Normal 0.0-2.0 [facility] Comment on above: Performed By: #### 5 7021-8 ####ANDI Cotter ([id number])[facility] ([facility])[address] [place] [address] Eosinophils (Bld) [#/Vol] 0.06 x10*3/uL Normal 0.00-0.70 [facility] Comment on above: Performed By: #### 5 7021-8 ####ANDI CHAUDHARY L ([id number])[facility] ([facility])[address] [place] [address] Eosinophils/100 WBC (Bld) 0.6 % Normal 0.0-6.0 [facility] Comment on above: Performed By: #### 5 7021-8 ####ANDI Cotter ([id number])[facility] ([facility])[address] [place] [address] Erythrocyte distribution width (RBC) [Ratio] 13.8 % Normal 11.5-14.5 [facility] Comment on above: Performed By: #### 5 7021-8 ####ANDI Cotter ([id number])[facility] ([facility])[address] [place] [address] Hematocrit (Bld) [Volume fraction] 31.0 % Low 36.0-46.0 [facility] Comment on above: Performed By: #### 5 7021-8 ####ANDI Cotter ([id number])[facility] ([facility])[address] [place] [address] Hemoglobin (Bld) [Mass/Vol] 9.8 g/dL Low 12.0-16.0 [facility] Comment on above: Performed By: #### 5 7021-8 ####ANDI Cotter ([id number])[facility] ([facility])[address] [place] [address] Immature granulocytes (Bld) [#/Vol] 0.10 x10*3/uL Normal 0.00-0.70 [facility] Comment on above: Performed By: #### 5 7021-8 ####ANDI Cotter ([id number])[facility] ([facility])[address] [place] [address] Immature granulocytes/100 WBC (Bld) 1.0 % High 0.0-0.9 [facility] Comment on above: Result Comment: Debbie ture Granulocyte Count (IG) includes promyelocytes, myelocytes and metamyelocytes but does not include bands. Percent differential counts (%) should be interpreted in the context of the absolute cell counts (cells/UL). Performed By: #### 5 7021-8 ####ANDI Cotter ([id number])[facility] ([facility])[address] [place] [address] Lymphocytes (Bld) [#/Vol] 2.27 x10*3/uL Normal 1.20-4.80 [facility] Comment on above: Performed By: #### 5 7021-8 ####ANDI Cotter ([id number])[facility] ([facility])[address] [place] [address] Lymphocytes/100 WBC (Bld) 22.8 % Normal 13.0-44.0 [facility] Comment on above: Performed By: #### 5 7021-8 ####ANDI Cotter ([id number])[facility] ([facility])[address] [place] [address] MCH (RBC) [Entitic mass] 26.6 pg Normal 26.0-34.0 [facility] Comment on above: Performed By: #### 5 7021-8 ####ANDI CHAUDHARY L ([id number])[facility] ([facility])[address] [place] [address] MCHC (RBC) [Mass/Vol] 31.6 g/dL Low 32.0-36.0 [facility] Comment on above: Performed By: #### 5 7021-8 ####ANDI RAJPUTMOFIDELINA L ([id number])[facility] ([facility])[address] [place] [address] MCV (RBC) [Entitic vol] 84 fL Normal 80-100 [facility] Comment on above: Performed By: #### 5 7021-8 ####ANDI Cotter ([id number])[facility] ([facility])[address] [place] [address] Monocytes (Bld) [#/Vol] 0.43 x10*3/uL Normal 0.10-1.00 [facility] Comment on above: Performed By: #### 5 7021-8 ####ANDI RAJPUTMOFIDELINA L ([id number])[facility] ([facility])[address] [place] [address] Monocytes/100 WBC (Bld) 4.3 % Normal 2.0-10.0 [facility] Comment on above: Performed By: #### 5 7021-8 ####ANDI CHAUDHARY L ([id number])[facility] ([facility])[address] [place] [address] Neutrophils (Bld) [#/Vol] 7.07 x10*3/uL Normal 1.20-7.70 [facility] Comment on above: Result Comment: Perc ent differential counts (%) should be interpreted in the context of the absolute cell counts (cells/uL). Performed By: #### 5 7021-8 ####ANDI RAJPUTMOTZER L ([id number])[facility] ([facility])[address] [place] [address] Neutrophils/100 WBC (Bld) 71.1 % Normal 40.0-80.0 [facility] Comment on above: Performed By: #### 5 7021-8 ####ANDI Cotter ([id number])[facility] ([facility])[address] [place] [address] Nucleated RBC/100 WBC (Bld) [Ratio] 0.0 /100 WBCs Normal 0.0-0.0 [facility] Comment on above: Performed By: #### 5 7021-8 ####ANDI Cotter ([id number])[facility] ([facility])[address] [place] [address] Platelets (Bld) [#/Vol] 242 x10*3/uL Normal 150-450 [facility] Comment on above: Performed By: #### 5 7021-8 ####ANDI Cotter ([id number])[facility] ([facility])[address] [place] [address] RBC (Bld) [#/Vol] 3.69 x10*6/uL Low 4.00-5.[address] [facility] Comment on above: Performed By: #### 5 7021-8 ####ANDI Cotter ([id number])[facility] ([facility])[address] [place] [address] WBC (Bld) [#/Vol] 10.0 x10*3/uL Normal 4.4-11.[address] [facility] Comment on above: Performed By: #### 5 7021-8 ####ANDI Cotter ([id number])[facility] ([facility])[address] [place] [address] Coagulation surface inducedo n 03-22-2024 aPTT Coag (PPP) [Time] 56 s High 27-38 [facility] Comment on above: Order Comment: Basel ine aPTT before initiating heparin infusion. Nursing to release order.The APTT is no longer used for monitoring Unfractionated Heparin Therapy. For monitoring Heparin Therapy, use the Heparin Assay. Performed By: #### 1 4979-9 ####ANDI Cotter ([id number])[facility] ([facility])[address] [place] [address] Comprehensive metabolic 2000 panelon 03-22-2024 Albumin BCP dye [Mass/Vol] 3.6 g/dL Normal 3.4-5.0 [facility] Comment on above: Performed By: #### 2 4323-8 ####ANDI Cotter ([id number])[facility] ([facility])[address] [place] [address] ALP [Catalytic activity/Vol] 226 U/L High 33-110 [facility] Comment on above: Performed By: #### 2 4323-8 ####ANDI CHAUDHARY L ([id number])[facility] ([facility])[address] [place] [address] ALT With P-5'-P [Catalytic activity/Vol] 92 U/L High 7-45 [facility] Comment on above: Result Comment: Evelyn ents treated with Sulfasalazine may generate falsely decreased results for ALT. Performed By: #### 2 4323-8 ####ANDI Cotter ([id number])[facility] ([facility])[address] [place] [address] Anion gap [Moles/Vol] 16 mmol/L Normal 10-20 [facility] Comment on above: Performed By: #### 2 4323-8 ####ANDI Cotter ([id number])[facility] ([facility])[address] [place] [address] AST With P-5'-P [Catalytic activity/Vol] 53 U/L High 9-39 [facility] Comment on above: Result Comment: MILD HEMOLYSIS DETECTED. The result may be falsely elevated due to hemolysis or other interferents. Clinical correlation is recommended. Repeat testing may be considered. Performed By: #### 2 4323-8 ####ANDI CHAUDHARY L ([id number])[facility] ([facility])[address] [place] [address] Bilirubin [Mass/Vol] 0.4 mg/dL Normal 0.0-1.[address] [facility] Comment on above: Performed By: #### 2 4323-8 ####ANDI CHAUDHARY L ([id number])[facility] ([facility])[address] [place] [address] Calcium [Mass/Vol] 9.4 mg/dL Normal 8.6-10.6 [facility] Comment on above: Performed By: #### 2 4323-8 ####ANDI CHAUDHARY L ([id number])[facility] ([facility])[address] [place] [address] Chloride [Moles/Vol] 99 mmol/L Normal 98-[address] [facility] Comment on above: Performed By: #### 2 4323-8 ####ANDI CHAUDHARY L ([id number])[facility] ([facility])[address] [place] [address] CO2 [Moles/Vol] 25 mmol/L Normal 21-32 [facility] Comment on above: Performed By: #### 2 4323-8 ####ANDI CHAUDHARY L ([id number])[facility] ([facility])[address] [place] [address] Creatinine [Mass/Vol] 0.54 mg/dL Normal 0.50-1.05 [facility] Comment on above: Performed By: #### 2 4323-8 ####ANDI CHAUDHARY L (60457)[facility] ([facility])[address] [place] [address] GFR/1.73 sq M.predicted MDRD (S/P/Bld) [Vol rate/Area] mL/min/{1.73_m2} Normal >60 [facility] Comment on above: Result Comment: Calc ulations of estimated GFR are performed using the 2020 CKD-EPI Study Refit equation without the race variable for the IDMS-Traceable creatinine methods.https://jasn.asnjournals.org/content/early/ N.3217604555 Performed By: #### 2 4323-8 ####ANDI CHAUDHARY L ([id number])[facility] ([facility])[address] [place] [address] Glucose [Mass/Vol] 167 mg/dL High 74-99 [facility] Comment on above: Performed By: #### 2 4323-8 ####ANDI Cotter ([id number])[facility] ([facility])[address] [place] [address] Potassium [Moles/Vol] 4.0 mmol/L Normal 3.5-5.3 [facility] Comment on above: Result Comment: MILD HEMOLYSIS DETECTED. The result may be falsely elevated due to hemolysis or other interferents. Clinical correlation is recommended. Repeat testing may be considered. Performed By: #### 2 4323-8 ####ANDI Cotter ([id number])[facility] ([facility])[address] [place] [address] Protein [Mass/Vol] 7.5 g/dL Normal 6.4-8.2 [facility] Comment on above: Performed By: #### 2 4323-8 ####ANDI Cotter ([id number])[facility] ([facility])[address] [place] [address] Sodium [Moles/Vol] 136 mmol/L Normal 136-145 [facility] Comment on above: Performed By: #### 2 4323-8 ####ANDI Cotter ([id number])[facility] ([facility])[address] [place] [address] Urea nitrogen [Mass/Vol] 8 mg/dL Normal 6-23 [facility] Comment on above: Performed By: #### 2 4323-8 ####ANDI Cotter ([id number])[facility] ([facility])[address] [place] [address] Glucose Test strip manual (B ld) [Mass/Vol]on 03-22-2024 Glucose [Mass/Vol] 136 mg/dL High 74-99 [facility] Comment on above: Performed By: #### 2 341-6 ####ANDI Cotter ([id number])[facility] ([facility])[address] [place] [address] Glucose [Mass/Vol] 166 mg/dL High [address] [place] [address] Comment on above: Performed By: #### 2 341-6 ####ANDI MADRIDTZER L ([id number])[facility] ([facility])[address] [place] [address] Glucose [Mass/Vol] 161 mg/dL High 7499 [facility] Comment on above: Performed By: #### 2 341-6 ####ANDI RAJPUTMOTZER L ([id number])[facility] ([facility])[address] [place], [place] [address] Glucose [Mass/Vol] 119 mg/dL High [address] [place] [address] Comment on above: Performed By: #### 2 341-6 ####ANDI CHAUDHARY L ([id number])[facility] ([facility])[address] [place] [address] Heparin.unfractionatedon Heparin unfractionated Chromogenic method Qn (PPP) 0.4 IU/mL Normal See Comment Below for Therapeutic Ranges [facility] Comment on above: [...] please refer to local Pharmacy and the [facility] Guidelines for Anticoagulation Therapy available on the [facility] intranet at: [email or web address]_Guidelines_[email or web address].aspx Performed By: #### 3 274-8 ####ANDI RAJPUTMOTZER L ([id number])[facility] ([facility])[address] [place] [address] Heparin unfractionated Chromogenic method Qn (PPP) 0.4 IU/mL Normal See Comment Below for Therapeutic Ranges [facility] Comment on above: [...] please refer to local Pharmacy and the [facility] Guidelines for Anticoagulation Therapy available on the [facility] intranet at: [email or web address]_[email or web address] Performed By: #### 3 274-8 ####ANDI Cotter ([id number])[facility] ([facility])[address] [place] [address] Magnesiumon 03-22-2024 Magnesium [Mass/Vol] 1.95 mg/dL Normal 1.60-2.[address] [facility] Comment on above: Performed By: #### 1 9123-9 ####ANDI Cotter ([id number])[facility] ([facility])[address] [place] [address] PT and aPTT panel Coag (PPP) on 03-22-2024 aPTT Coag (PPP) [Time] 62 s High 27-38 [facility] Comment on above: Order Comment: The A PTT is no longer used for monitoring Unfractionated Heparin Therapy. For monitoring Heparin Therapy, use the Heparin Assay. Performed By: #### 3 4529-8 ####ANDI Cotter ([id number])[facility] ([facility])[address] [place] [address] INR Coag (PPP) [Relative time] 1.2 High 0.9-1.1 [facility] Comment on above: Order Comment: The A PTT is no longer used for monitoring Unfractionated Heparin Therapy. For monitoring Heparin Therapy, use the Heparin Assay. Performed By: #### 3 4529-8 ####ANDI Cotter ([id number])[facility] ([facility])[address] [place] [address] PT Coag (PPP) [Time] 13.1 s High 9.8-12.[address] [facility] Comment on above: Order Comment: The A PTT is no longer used for monitoring Unfractionated Heparin Therapy. For monitoring Heparin Therapy, use the Heparin Assay. Performed By: #### 3 4529-8 ####ANDI Cotter ([id number])[facility] ([facility])[address] [place] [address] Phosphateon 03-22-2024 Phosphate [Mass/Vol] 4.2 mg/dL Normal 2.5-4.[address] [facility] Comment on above: Result Comment: MILD [...] Performed By: #### 2 777-1 ####ANDI Cotter ([id number])[facility] ([facility])[address] [place] [address] Blood type and Indirect anti body screen panel (Bld)on 03-21-2024 ABO group Nom (Bld) A Normal [facility] Comment on above: Order Comment: Revie w your Rh Negative female patient's potential need for Rh Immune Globulin (RhIg)administration. Performed By: #### 3 4532-2 ####ANDI Cotter ([id number])[facility] ([facility] [place] [address] Blood group antibody screen Ql Negative [facility] Comment on above: Order Comment: Revie w your Rh Negative female patient's potential need for Rh Immune Globulin (RhIg)administration. Performed By: #### 3 4532-2 ####ANDI Cotter ([id number])[facility] ([facility])[address] [place] [address] D Ag Ql (Bld) Negative [facility] Comment on above: Order Comment: Revie w your Rh Negative female patient's potential need for Rh Immune Globulin (RhIg)administration. Performed By: #### 3 4532-2 ####ANDI Cotter ([id number])[facility] ([facility] [place] [address] CBC W Auto Differential pane l (Bld)on 03-21-2024 Basophils (Bld) [#/Vol] 0.03 x10*3/uL Normal 0.00-0.10 [facility] Comment on above: Performed By: #### 5 7021-8 ####ANDI Cotter ([id number])[facility] ([facility])[address] [place] [address] Basophils/100 WBC (Bld) 0.4 % Normal 0.0-2.0 [facility] Comment on above: Performed By: #### 5 7021-8 ####ANDI Cotter ([id number])[facility] ([facility])[address] [place] [address] Eosinophils (Bld) [#/Vol] 0.17 x10*3/uL Normal 0.00-0.70 [facility] Comment on above: Performed By: #### 5 7021-8 ####ANDI Cotter ([id number])[facility] ([facility])[address] [place] [address] Eosinophils/100 WBC (Bld) 2.4 % Normal 0.0-6.0 [facility] Comment on above: Performed By: #### 5 7021-8 ####ANDI Cotter ([id number])[facility] ([facility])[address] [place] [address] Erythrocyte distribution width (RBC) [Ratio] 14.3 % Normal 11.5-14.5 [facility] Comment on above: Performed By: #### 5 7021-8 ####ANDI Cotter ([id number])[facility] ([facility])[address] [place] [address] Hematocrit (Bld) [Volume fraction] 32.1 % Low 36.0-46.0 [facility] Comment on above: Performed By: #### 5 7021-8 ####ANDI Cotter ([id number])[facility] ([facility])[address] [place] [address] Hemoglobin (Bld) [Mass/Vol] 9.8 g/dL Low 12.0-16.0 [facility] Comment on above: Performed By: #### 5 7021-8 ####ANDI CHAUDHARY L ([id number])[facility] ([facility])[address] [place] [address] Immature granulocytes (Bld) [#/Vol] 0.07 x10*3/uL Normal 0.00-0.70 [facility] Comment on above: Performed By: #### 5 7021-8 ####ANDI Cotter ([id number])[facility] ([facility])[address] [place] [address] Immature granulocytes/100 WBC (Bld) 1.0 % High 0.0-0.9 [facility] Comment on above: Result Comment: Debbie ture Granulocyte Count (IG) includes promyelocytes, myelocytes and metamyelocytes but does not include bands. Percent differential counts (%) should be interpreted in the context of the absolute cell counts (cells/UL). Performed By: #### 5 7021-8 ####ANDI Cotter ([id number])[facility] ([facility])[address] [place] [address] Lymphocytes (Bld) [#/Vol] 1.43 x10*3/uL Normal 1.20-4.80 [facility] Comment on above: Performed By: #### 5 7021-8 ####ANDI CHAUDHARY L ([id number])[facility] ([facility])[address] [place] [address] Lymphocytes/100 WBC (Bld) 19.8 % Normal 13.0-44.0 [facility] Comment on above: Performed By: #### 5 7021-8 ####ANDI Cotter ([id number])[facility] ([facility])[address] [place] [address] MCH (RBC) [Entitic mass] 26.4 pg Normal 26.0-34.0 [facility] Comment on above: Performed By: #### 5 7021-8 ####ANDI Cotter ([id number])[facility] ([facility])[address] [place] [address] MCHC (RBC) [Mass/Vol] 30.5 g/dL Low 32.0-36.0 [facility] Comment on above: Performed By: #### 5 7021-8 ####ANDI Cotter ([id number])[facility] ([facility])[address] [place] [address] MCV (RBC) [Entitic vol] 87 fL Normal 80-100 [facility] Comment on above: Performed By: #### 5 7021-8 ####ANDI Cotter ([id number])[facility] ([facility])[address] [place] [address] Monocytes (Bld) [#/Vol] 0.52 x10*3/uL Normal 0.10-1.00 [facility] Comment on above: Performed By: #### 5 7021-8 ####ANDI Cotter ([id number])[facility] ([facility])[address] [place] [address] Monocytes/100 WBC (Bld) 7.2 % Normal 2.0-10.0 [facility] Comment on above: Performed By: #### 5 7021-8 ####ANDI Cotter ([id number])[facility] ([facility])[address] [place] [address] Neutrophils (Bld) [#/Vol] 5.00 x10*3/uL Normal 1.20-7.70 [facility] Comment on above: Result Comment: Perc ent differential counts (%) should be interpreted in the context of the absolute cell counts (cells/uL). Performed By: #### 5 7021-8 ####ANDI Cotter ([id number])[facility] ([facility])[address] [place] [address] Neutrophils/100 WBC (Bld) 69.2 % Normal 40.0-80.0 [facility] Comment on above: Performed By: #### 5 7021-8 ####ANDI Cotter ([id number])[facility] ([facility])[address] [place] [address] Nucleated RBC/100 WBC (Bld) [Ratio] 0.0 /100 WBCs Normal 0.0-0.0 [facility] Comment on above: Performed By: #### 5 7021-8 ####ANDI Cotter ([id number])[facility] ([facility])[address] [place] [address] Platelets (Bld) [#/Vol] 294 x10*3/uL Normal 150-450 [facility] Comment on above: Performed By: #### 5 7021-8 ####ANDI Cotter ([id number])[facility] ([facility])[address] [place] [address] RBC (Bld) [#/Vol] 3.71 x10*6/uL Low 4.00-5.[address] [facility] Comment on above: Performed By: #### 5 7021-8 ####ANDI Cotter ([id number])[facility] ([facility])[address] [place] [address] WBC (Bld) [#/Vol] 7.2 x10*3/uL Normal 4.4-11.3 [facility] Comment on above: Performed By: #### 5 7021-8 ####ANDI Cotter ([id number])[facility] ([facility])[address] [place] [address] Basophils (Bld) [#/Vol] 0.03 x10*3/uL Normal 0.00-0.10 [facility] Comment on above: Performed By: #### 5 7021-8 ####ANDI Cotter ([id number])[facility] ([facility])[address] [place] [address] Basophils/100 WBC (Bld) 0.4 % Normal 0.0-2.0 [facility] Comment on above: Performed By: #### 5 7021-8 ####ANDI Cotter ([id number])[facility] ([facility])[address] [place] [address] Eosinophils (Bld) [#/Vol] 0.26 x10*3/uL Normal 0.00-0.70 [facility] Comment on above: Performed By: #### 5 7021-8 ####ANDI Cotter ([id number])[facility] ([facility])[address] [place] [address] Eosinophils/100 WBC (Bld) 3.4 % Normal 0.0-6.0 [facility] Comment on above: Performed By: #### 5 7021-8 ####ANDI Cotter ([id number])[facility] ([facility])[address] [place] [address] Erythrocyte distribution width (RBC) [Ratio] 14.1 % Normal 11.5-14.5 [facility] Comment on above: Performed By: #### 5 7021-8 ####ANDI Cotter ([id number])[facility] ([facility])[address] [place] [address] Hematocrit (Bld) [Volume fraction] 22.2 % Low 36.0-46.0 [facility] Comment on above: Performed By: #### 5 7021-8 ####ANDI Cotter ([id number])[facility] ([facility])[address] [place] [address] Hemoglobin (Bld) [Mass/Vol] 6.8 g/dL Low 12.0-16.0 [facility] Comment on above: Performed By: #### 5 7021-8 ####ANDI Cotter ([id number])[facility] ([facility])[address] [place] [address] Immature granulocytes (Bld) [#/Vol] 0.06 x10*3/uL Normal 0.00-0.70 [facility] Comment on above: Performed By: #### 5 7021-8 ####ANDI Cotter ([id number])[facility] ([facility])[address] [place] [address] Immature granulocytes/100 WBC (Bld) 0.8 % Normal 0.0-0.9 [facility] Comment on above: Result Comment: Debbie ture Granulocyte Count (IG) includes promyelocytes, myelocytes and metamyelocytes but does not include bands. Percent differential counts (%) should be interpreted in the context of the absolute cell counts (cells/UL). Performed By: #### 5 7021-8 ####ANDI Cotter ([id number])[facility] ([facility])[address] [place] [address] Lymphocytes (Bld) [#/Vol] 1.81 x10*3/uL Normal 1.20-4.80 [facility] Comment on above: Performed By: #### 5 7021-8 ####ANDI Cotter ([id number])[facility] ([facility])[address] [place] [address] Lymphocytes/100 WBC (Bld) 23.5 % Normal 13.0-44.0 [facility] Comment on above: Performed By: #### 5 7021-8 ####ANDI Cotter ([id number])[facility] ([facility])[address] [place] [address] MCH (RBC) [Entitic mass] 26.6 pg Normal 26.0-34.0 [facility] Comment on above: Performed By: #### 5 7021-8 ####ANDI Cotter ([id number])[facility] ([facility])[address] [place] [address] MCHC (RBC) [Mass/Vol] 30.6 g/dL Low 32.0-36.0 [facility] Comment on above: Performed By: #### 5 7021-8 ####ANDI Cotter ([id number])[facility] ([facility])[address] [place] [address] MCV (RBC) [Entitic vol] 87 fL Normal 80-100 [facility] Comment on above: Performed By: #### 5 7021-8 ####ANDI Cotter ([id number])[facility] ([facility])[address] [place] [address] Monocytes (Bld) [#/Vol] 0.59 x10*3/uL Normal 0.10-1.00 [facility] Comment on above: Performed By: #### 5 7021-8 ####ANDI Cotter ([id number])[facility] ([facility])[address] [place] [address] Monocytes/100 WBC (Bld) 7.7 % Normal 2.0-10.0 [facility] Comment on above: Performed By: #### 5 7021-8 ####ANDI Cotter ([id number])[facility] ([facility])[address] [place] [address] Neutrophils (Bld) [#/Vol] 4.96 x10*3/uL Normal 1.20-7.70 [facility] Comment on above: Result Comment: Perc ent differential counts (%) should be interpreted in the context of the absolute cell counts (cells/uL). Performed By: #### 5 7021-8 ####ANDI Cotter (24981)[facility] ([facility])[address] [place] [address] Neutrophils/100 WBC (Bld) 64.2 % Normal 40.0-80.0 [facility] Comment on above: Performed By: #### 5 7021-8 ####ANDI Cotter (57791)[facility] ([facility])[address]268 [place] [address] Nucleated RBC/100 WBC (Bld) [Ratio] 0.0 /100 WBCs Normal 0.0-0.0 [facility] Comment on above: Performed By: #### 5 7021-8 ####ANDI Cotter ([id number])[facility] ([facility])[address] [place] [address] Platelets (Bld) [#/Vol] 371 x10*3/uL Normal 150-450 [facility] Comment on above: Performed By: #### 5 7021-8 ####ANDI Cotter ([id number])[facility] ([facility])[address] [place] [address] RBC (Bld) [#/Vol] 2.56 x10*6/uL Low 4.00-5.[address] [facility] Comment on above: Performed By: #### 5 7021-8 ####ANDI Cotter ([id number])[facility] ([facility])[address] [place] [address] WBC (Bld) [#/Vol] 7.7 x10*3/uL Normal 4.4-11.3 [facility] Comment on above: Performed By: #### 5 7021-8 ####ANDI Cotter ([id number])[facility] ([facility])[address] [place] [address] Comprehensive metabolic 2000 panelon 03-21-2024 Albumin BCP dye [Mass/Vol] 3.5 g/dL Normal 3.4-5.0 [facility] Comment on above: Performed By: #### 2 4323-8 ####ANDI Cotter ([id number])[facility] ([facility])[address] [place] [address] ALP [Catalytic activity/Vol] 232 U/L High 33-110 [facility] Comment on above: Performed By: #### 2 4323-8 ####ANDI Cotter (28029)[facility] ([facility])[address] [place] [address] ALT With P-5'-P [Catalytic activity/Vol] 100 U/L High 7-45 [facility] Comment on above: Result Comment: Evelyn ents treated with Sulfasalazine may generate falsely decreased results for ALT. Performed By: #### 2 4323-8 ####ANDI Cotter ([id number])[facility] ([facility])[address] [place] [address] Anion gap [Moles/Vol] 15 mmol/L Normal 10-20 [facility] Comment on above: Performed By: #### 2 4323-8 ####ANDI Cotter ([id number])[facility] ([facility])[address] [place] [address] AST With P-5'-P [Catalytic activity/Vol] 129 U/L High 9-39 [facility] Comment on above: Performed By: #### 2 4323-8 ####ANDI Cotter ([id number])[facility] ([facility])[address] [place] [address] Bilirubin [Mass/Vol] 0.6 mg/dL Normal 0.0-1.[address] [facility] Comment on above: Performed By: #### 2 4323-8 ####ANDI Cotter ([id number])[facility] ([facility])[address] [place] [address] Calcium [Mass/Vol] 9.1 mg/dL Normal 8.6-10.6 [facility] Comment on above: Performed By: #### 2 4323-8 ####ANDI Cotter (84645)[facility] ([facility])[address] [place] [address] Chloride [Moles/Vol] 99 mmol/L Normal 98-[address] [facility] Comment on above: Performed By: #### 2 4323-8 ####ANDI Cotter (18139)[facility] ([facility])[address] [place] [address] CO2 [Moles/Vol] 26 mmol/L Normal 21-32 [facility] Comment on above: Performed By: #### 2 4323-8 ####ANDI Cotter ([id number])[facility] ([facility])[address] [place] [address] Creatinine [Mass/Vol] 0.71 mg/dL Normal 0.50-1.05 [facility] Comment on above: Performed By: #### 2 4323-8 ####ANDI Cotter ([id number])[facility] ([facility])[address] [place] [address] GFR/1.73 sq M.predicted MDRD (S/P/Bld) [Vol rate/Area] mL/min/{1.73_m2} Normal >60 [facility] Comment on above: Result Comment: Calc ulations of estimated GFR are performed using the 2020 CKD-EPI Study Refit equation without the race variable for the IDMS-Traceable creatinine methods.https://jasn.asnjournals.org/content/early// N.6996504281 Performed By: #### 2 4323-8 ####ANDI Cotter ([id number])[facility] ([facility])[address] [place] [address] Glucose [Mass/Vol] 131 mg/dL High 74-99 [facility] Comment on above: Performed By: #### 2 4323-8 ####ANDI CHAUDHARY L ([id number])[facility] ([facility])[address] [place] [address] Potassium [Moles/Vol] 3.7 mmol/L Normal 3.5-5.3 [facility] Comment on above: Performed By: #### 2 4323-8 ####ANDI Cotter ([id number])[facility] ([facility])[address]34 [place] [address] Protein [Mass/Vol] 7.1 g/dL Normal 6.4-8.2 [facility] Comment on above: Performed By: #### 2 4323-8 ####ANDI Cotter ([id number])[facility] ([facility])[address] [place] [address] Sodium [Moles/Vol] 136 mmol/L Normal 136-145 [facility] Comment on above: Performed By: #### 2 4323-8 ####ANDI Cotter (72475)[facility] ([facility])[address] [place] [address] Urea nitrogen [Mass/Vol] 7 mg/dL Normal 6-23 [facility] Comment on above: Performed By: #### 2 4323-8 ####ANDI Cotter ([id number])[facility] ([facility])[address] [place] [address] ERCPon 03-21-2024 ERCP Normal [facility] Glucose Test strip manual (B ld) [Mass/Vol]on 03-21-2024 Glucose [Mass/Vol] 249 mg/dL High -99 [facility] Comment on above: Performed By: #### 2 341-6 ####ANDI Cotter ([id number])[facility] ([facility])[address]61 [place] [address] Glucose [Mass/Vol] 220 mg/dL High 74-99 [facility] Comment on above: Performed By: #### 2 341-6 ####ANDI Cotter ([id number])[facility] ([facility])[address] [place] [address] Glucose [Mass/Vol] 239 mg/dL High -99 [facility] Comment on above: Performed By: #### 2 341-6 ####ANDI Cotter ([id number])[facility] ([facility])[address]283 [place] [address] Glucose [Mass/Vol] 135 mg/dL High 74-99 [facility] Comment on above: Performed By: #### 2 341-6 ####ANDI Cotter ([id number])[facility] ([facility])[address] [place] [address] Glucose [Mass/Vol] 156 mg/dL High 74-99 [facility] Comment on above: Performed By: #### 2 341-6 ####ANDI Cotter ([id number])[facility] ([facility])[address]06 [place] [address] Glucose [Mass/Vol] 129 mg/dL High 74-99 [facility] Comment on above: Performed By: #### 2 341-6 ####ANDI Cotter ([id number])[facility] ([facility])[address] [place] [address] Heparin.unfractionatedon Heparin unfractionated Chromogenic method Qn (PPP) 0.2 IU/mL Normal See Comment Below for Therapeutic Ranges [facility] Comment on above: Order Comment: If bl eeding from any site at anytime. Nursing to release order.The therapeutic reference range for UFH may be either 0.3-0.6 IU/mL or 0.3-0.7 IU/mL based on the clinical setting for anticoagulant therapy and the associated nomogram used. For Heparin dosing guidelines based on clinical scenario and Heparin Assay results, please refer to local Pharmacy and [facility] Guidelines for Anticoagulation Therapy available on the [facility] intranet at: [email or web address]_[email or web address].aspx Performed By: #### 3 274-8 ####ANDI Cotter ([id number])[facility] ([facility])[address] [place] [address] Heparin unfractionated Chromogenic method Qn (PPP) 0.2 IU/mL Normal See Comment Below for Therapeutic Ranges [facility] Comment on above: [...] please refer to local Pharmacy and the [facility] Guidelines for Anticoagulation Therapy available on the [facility] intranet at: [email or web address]_Guidelines_for_[email or web address].aspx Performed By: #### 3 274-8 ####ANDI Cotter ([id number])[facility] ([facility])[address] [place] [address] Magnesiumon 03-21-2024 Magnesium [Mass/Vol] 1.86 mg/dL Normal 1.60-2.[address] [facility] Comment on above: Performed By: #### 1 9123-9 ####ANDI Cotter (95596)[facility] ([facility])[address] [place] [address] PT and aPTT panel Coag (PPP) on 03-21-2024 aPTT Coag (PPP) [Time] 77 s High 27-38 [facility] Comment on above: Order Comment: The A PTT is no longer used for monitoring Unfractionated Heparin Therapy. For monitoring Heparin Therapy, use the Heparin Assay. Performed By: #### 3 4529-8 ####ANDI Cotter ([id number])[facility] ([facility])[address] [place] [address] INR Coag (PPP) [Relative time] 1.1 Normal 0.9-1.1 [facility] Comment on above: Order Comment: The A PTT is no longer used for monitoring Unfractionated Heparin Therapy. For monitoring Heparin Therapy, use the Heparin Assay. Performed By: #### 3 4529-8 ####ANDI Cotter ([id number])[facility] ([facility])[address] [place] [address] PT Coag (PPP) [Time] 12.8 s Normal 9.8-12.[address] [facility] Comment on above: Order Comment: The A PTT is no longer used for monitoring Unfractionated Heparin Therapy. For monitoring Heparin Therapy, use the Heparin Assay. Performed By: #### 3 4529-8 ####ANDI Cotter ([id number])[facility] ([facility])[address] [place] [address] Phosphateon 03-21-2024 Phosphate [Mass/Vol] 5.0 mg/dL High 2.5-4.[address] [facility] Comment on above: Result Comment: The performance characteristics of phosphorus testing in heparinized plasma have been validated by the individual laboratory site where testing is performed. Testing on heparinized plasma is not approved by the FDA; however, such approval is not necessary. Performed By: #### 2 777-1 ####ANDI Cotter ([id number])[facility] ([facility])[address] [place] [address] CBC W Auto Differential pane l (Bld)on 03-20-2024 Basophils (Bld) [#/Vol] 0.02 x10*3/uL Normal 0.00-0.10 [facility] Comment on above: Performed By: #### 5 7021-8 ####ANDI Cotter ([id number])[facility] ([facility])[address] [place] [address] Basophils/100 WBC (Bld) 0.3 % Normal 0.0-2.0 [facility] Comment on above: Performed By: #### 5 7021-8 ####ANDI Cotter ([id number])[facility] ([facility])[address] [place] [address] 264[address] Eosinophils (Bld) [#/Vol] 0.20 x10*3/uL Normal 0.00-0.70 [facility] Comment on above: Performed By: #### 5 7021-8 ####ANDI Cotter ([id number])[facility] ([facility])[address] [place] [address] Eosinophils/100 WBC (Bld) 2.7 % Normal 0.0-6.0 [facility] Comment on above: Performed By: #### 5 7021-8 ####ANDI Cotter ([id number])[facility] ([facility])[address] [place] [address] 16234 Erythrocyte distribution width (RBC) [Ratio] 14.3 % Normal 11.5-14.5 [facility] Comment on above: Performed By: #### 5 7021-8 ####ANDI Cotter ([id number])[facility] ([facility])[address] [place] [address] Hematocrit (Bld) [Volume fraction] 30.6 % Low 36.0-46.0 [facility] Comment on above: Performed By: #### 5 7021-8 ####ANDI CHAUDHARY L ([id number])[facility] ([facility])[address] [place] [address] Hemoglobin (Bld) [Mass/Vol] 9.3 g/dL Low 12.0-16.0 [facility] Comment on above: Performed By: #### 5 7021-8 ####ANDI Cotter ([id number])[facility] ([facility])[address] [place] [address] Immature granulocytes (Bld) [#/Vol] 0.07 x10*3/uL Normal 0.00-0.70 [facility] Comment on above: Performed By: #### 5 7021-8 ####ANDI Cotter ([id number])[facility] ([facility])[address] [place] [address] Immature granulocytes/100 WBC (Bld) 0.9 % Normal 0.0-0.9 [facility] Comment on above: Result Comment: Debbie ture Granulocyte Count (IG) includes promyelocytes, myelocytes and metamyelocytes but does not include bands. Percent differential counts (%) should be interpreted in the context of the absolute cell counts (cells/UL). Performed By: #### 5 7021-8 ####ANDI Cotter ([id number])[facility] ([facility])[address] [place] [address] Lymphocytes (Bld) [#/Vol] 2.11 x10*3/uL Normal 1.20-4.80 [facility] Comment on above: Performed By: #### 5 7021-8 ####ANDI Cotter ([id number])[facility] ([facility])[address] [place] [address] Lymphocytes/100 WBC (Bld) 28.0 % Normal 13.0-44.0 [facility] Comment on above: Performed By: #### 5 7021-8 ####ANDI Cotter ([id number])[facility] ([facility])[address] [place] [address] MCH (RBC) [Entitic mass] 26.6 pg Normal 26.0-34.0 [facility] Comment on above: Performed By: #### 5 7021-8 ####ANDI Cotter ([id number])[facility] ([facility])[address] [place] [address] MCHC (RBC) [Mass/Vol] 30.4 g/dL Low 32.0-36.0 [facility] Comment on above: Performed By: #### 5 7021-8 ####ANDI Cotter ([id number])[facility] ([facility])[address] [place] [address] MCV (RBC) [Entitic vol] 88 fL Normal 80-100 [facility] Comment on above: Performed By: #### 5 7021-8 ####ANDI Cotter ([id number])[facility] ([facility])[address] [place] [address]36 Monocytes (Bld) [#/Vol] 0.52 x10*3/uL Normal 0.10-1.00 [facility] Comment on above: Performed By: #### 5 7021-8 ####ANDI Cotter ([id number])[facility] ([facility])[address] [place] [address] Monocytes/100 WBC (Bld) 6.9 % Normal 2.0-10.0 [facility] Comment on above: Performed By: #### 5 7021-8 ####ANDI Cotter ([id number])[facility] ([facility])[address] [place] [address] Neutrophils (Bld) [#/Vol] 4.62 x10*3/uL Normal 1.20-7.70 [facility] Comment on above: Result Comment: Perc ent differential counts (%) should be interpreted in the context of the absolute cell counts (cells/uL). Performed By: #### 5 7021-8 ####ANDI Cotter ([id number])[facility] ([facility])[address] [place] [address] Neutrophils/100 WBC (Bld) 61.2 % Normal 40.0-80.0 [facility] Comment on above: Performed By: #### 5 7021-8 ####ANDI Cotter ([id number])[facility] ([facility])[address] [place] [address] Nucleated RBC/100 WBC (Bld) [Ratio] 0.0 /100 WBCs Normal 0.0-0.0 [facility] Comment on above: Performed By: #### 5 7021-8 ####ANDI Cotter ([id number])[facility] ([facility])[address] [place] [address] Platelets (Bld) [#/Vol] 326 x10*3/uL Normal 150-450 [facility] Comment on above: Performed By: #### 5 7021-8 ####ANDI Cotter ([id number])[facility] ([facility])[address] [place] [address] 12925 RBC (Bld) [#/Vol] 3.49 x10*6/uL Low 4.00-5.[address] [facility] Comment on above: Performed By: #### 5 7021-8 ####ANDI Cotter ([id number])[facility] ([facility])[address] [place] [address] WBC (Bld) [#/Vol] 7.5 x10*3/uL Normal 4.4-11.3 [facility] Comment on above: Performed By: #### 5 7021-8 ####ANDI Cotter ([id number])[facility] ([facility])[address] [place] [address] Comprehensive metabolic 2000 panelon 03-20-2024 Albumin BCP dye [Mass/Vol] 3.5 g/dL Normal 3.4-5.0 [facility] Comment on above: Performed By: #### 2 4323-8 ####ANDI Cotter ([id number])[facility] ([facility])[address] [place] [address] ALP [Catalytic activity/Vol] 144 U/L High 33-110 [facility] Comment on above: Performed By: #### 2 4323-8 ####ANDI Cotter ([id number])[facility] ([facility])[address] [place] [address] ALT With P-5'-P [Catalytic activity/Vol] 48 U/L High 7-45 [facility] Comment on above: Result Comment: Evelyn ents treated with Sulfasalazine may generate falsely decreased results for ALT. Performed By: #### 2 4323-8 ####ANDI Cotter ([id number])[facility] ([facility])[address] [place] [address] Anion gap [Moles/Vol] 17 mmol/L Normal 10-20 [facility] Comment on above: Performed By: #### 2 4323-8 ####ANDI Cotter ([id number])[facility] ([facility])[address] [place] [address] AST With P-5'-P [Catalytic activity/Vol] 58 U/L High 9-39 [facility] Comment on above: Performed By: #### 2 4323-8 ####ANDI Cotter ([id number])[facility] ([facility])[address] [place] [address] Bilirubin [Mass/Vol] 0.5 mg/dL Normal 0.0-1.[address] [facility] Comment on above: Performed By: #### 2 4323-8 ####ANDI Cotter ([id number])[facility] ([facility])[address] [place] [address] Calcium [Mass/Vol] 8.7 mg/dL Normal 8.6-10.6 [facility] Comment on above: Performed By: #### 2 4323-8 ####ANDI Cotter ([id number])[facility] ([facility])[address] [place] [address] Chloride [Moles/Vol] 102 mmol/L Normal 98-[address] [facility] Comment on above: Performed By: #### 2 4323-8 ####ANDI Cotter ([id number])[facility] ([facility])[address] [place] [address] CO2 [Moles/Vol] 20 mmol/L Low 21-32 [facility] Comment on above: Performed By: #### 2 4323-8 ####ANDI Cotter ([id number])[facility] ([facility])[address] [place] [address] Creatinine [Mass/Vol] 0.52 mg/dL Normal 0.50-1.05 [facility] Comment on above: Performed By: #### 2 4323-8 ####ANDI Cotter ([id number])[facility] ([facility])[address] [place] [address] GFR/1.73 sq M.predicted MDRD (S/P/Bld) [Vol rate/Area] mL/min/{1.73_m2} Normal >60 [facility] Comment on above: Result Comment: Calc ulations of estimated GFR are performed using the 2020 CKD-EPI Study Refit equation without the race variable for the IDMS-Traceable creatinine methods.https://jasn.asnjournals.org/content/early// N.8110676539 Performed By: #### 2 4323-8 ####ANDI Cotter ([id number])[facility] ([facility])[address] [place] [address] Glucose [Mass/Vol] 114 mg/dL High 74-99 [facility] Comment on above: Performed By: #### 2 4323-8 ####ANDI Cotter ([id number])[facility] ([facility])[address] [place] [address] Potassium [Moles/Vol] 3.8 mmol/L Normal 3.5-5.3 [facility] Comment on above: Performed By: #### 2 4323-8 ####ANDI Cotter ([id number])[facility] ([facility])[address] [place] [address] Protein [Mass/Vol] 7.1 g/dL Normal 6.4-8.2 [facility] Comment on above: Performed By: #### 2 4323-8 ####ANDI Cotter ([id number])[facility] ([facility])[address] [place] [address] Sodium [Moles/Vol] 135 mmol/L Low 136-145 [facility] Comment on above: Performed By: #### 2 4323-8 ####ANDI Cotter ([id number])[facility] ([facility])[address] [place] [address] Urea nitrogen [Mass/Vol] 8 mg/dL Normal 6-23 [facility] Comment on above: Performed By: #### 2 4323-8 ####ANDI Cotter ([id number])[facility] ([facility])[address] [place] [address] Glucose Test strip manual (B ld) [Mass/Vol]on 03-20-2024 Glucose [Mass/Vol] 125 mg/dL High 74-99 [facility] Comment on above: Performed By: #### 2 341-6 ####ANDI Cotter ([id number])[facility] ([facility])[address] [place] [address] Glucose [Mass/Vol] 148 mg/dL High 74-99 [facility] Comment on above: Performed By: #### 2 341-6 ####ANDI Cotter ([id number])[facility] ([facility])[address] [place] [address] Glucose [Mass/Vol] 162 mg/dL High 74-99 [facility] Comment on above: Performed By: #### 2 341-6 ####ANDI Cotter ([id number])[facility] ([facility])[address] [place] [address] Glucose [Mass/Vol] 93 mg/dL Normal 74-99 [facility] Comment on above: Performed By: #### 2 341-6 ####ANDI Cotter ([id number])[facility] ([facility])[address] [place] [address] Heparin.unfractionatedon Heparin unfractionated Chromogenic method Qn (PPP) 0.6 IU/mL Normal See Comment Below for Therapeutic Ranges [facility] Comment on above: [...] please refer to local Pharmacy and the [facility] Guidelines for Anticoagulation Therapy available on the [facility] intranet at: [email or web address] Performed By: #### 3 274-8 ####ANDI Cotter ([id number])[facility] ([facility])[address] [place] [address] Magnesiumon 03-20-2024 Magnesium [Mass/Vol] 1.92 mg/dL Normal 1.60-2.[address] [facility] Comment on above: Performed By: #### 1 9123-9 ####ANDI Cotter ([id number])[facility] ([facility])[address] [place] [address] PT and aPTT panel Coag (PPP) on 03-20-2024 aPTT Coag (PPP) [Time] 127 s Critically high 27-38 [facility] Comment on above: Order Comment: The A PTT is no longer used for monitoring Unfractionated Heparin Therapy. For monitoring Heparin Therapy, use the Heparin Assay. Performed By: #### 3 4529-8 ####ANDI Cotter ([id number])[facility] ([facility])[address] [place] [address] INR Coag (PPP) [Relative time] 1.4 High 0.9-1.1 [facility] Comment on above: Order Comment: The A PTT is no longer used for monitoring Unfractionated Heparin Therapy. For monitoring Heparin Therapy, use the Heparin Assay. Performed By: #### 3 4529-8 ####ANDI Ctoter ([id number])[facility] ([facility])[address] [place] [address] PT Coag (PPP) [Time] 15.6 s High 9.8-12.[address] [facility] Comment on above: Order Comment: The A PTT is no longer used for monitoring Unfractionated Heparin Therapy. For monitoring Heparin Therapy, use the Heparin Assay. Performed By: #### 3 4529-8 ####ANDI Cotter ([id number])[facility] ([facility])[address] [place] [address] Phosphateon 03-20-2024 Phosphate [Mass/Vol] 4.5 mg/dL Normal 2.5-4.[address] [facility] Comment on above: Result Comment: The performance characteristics of phosphorus testing in heparinized plasma have been validated by the individual laboratory site where testing is performed. Testing on heparinized plasma is not approved by the FDA; however, such approval is not necessary. Performed By: #### 2 777-1 ####ANDI Cotter ([id number])[facility] ([facility])[address] [place] [address] CBC W Auto Differential pane l (Bld)on 03-19-2024 Basophils (Bld) [#/Vol] 0.03 x10*3/uL Normal 0.00-0.10 [facility] Comment on above: Performed By: #### 5 7021-8 ####ANDI Cotter ([id number])[facility] ([facility])[address] [place] [address] Basophils/100 WBC (Bld) 0.3 % Normal 0.0-2.0 [facility] Comment on above: Performed By: #### 5 7021-8 ####ANDI CHAUDHARY L ([id number])[facility] ([facility])[address] [place] [address] Eosinophils (Bld) [#/Vol] 0.17 x10*3/uL Normal 0.00-0.70 [facility] Comment on above: Performed By: #### 5 7021-8 ####ANDI Cotter ([id number])[facility] ([facility])[address]395 [place] [address] Eosinophils/100 WBC (Bld) 1.7 % Normal 0.0-6.0 [facility] Comment on above: Performed By: #### 5 7021-8 ####ANDI Cotter ([id number])[facility] ([facility])[address] [place] [address] Immature granulocytes (Bld) [#/Vol] 0.04 x10*3/uL Normal 0.00-0.70 [facility] Comment on above: Performed By: #### 5 7021-8 ####ANDI Cotter ([id number])[facility] ([facility])[address] [place] [address] Immature granulocytes/100 WBC (Bld) 0.4 % Normal 0.0-0.9 [facility] Comment on above: Result Comment: Dbebie ture Granulocyte Count (IG) includes promyelocytes, myelocytes and metamyelocytes but does not include bands. Percent differential counts (%) should be interpreted in the context of the absolute cell counts (cells/UL). Performed By: #### 5 7021-8 ####ANDI RAJPUTMOFIDELINA Cotter ([id number])[facility] ([facility])[address] [place] [address] Lymphocytes (Bld) [#/Vol] 1.19 x10*3/uL Low 1.20-4.80 [facility] Comment on above: Performed By: #### 5 7021-8 ####ANDI Cotter ([id number])[facility] ([facility])[address] [place] [address] Lymphocytes/100 WBC (Bld) 12.0 % Normal 13.0-44.0 [facility] Comment on above: Performed By: #### 5 7021-8 ####ANDI CHAUDHARY L ([id number])[facility] ([facility])[address] [place] [address] Monocytes (Bld) [#/Vol] 0.64 x10*3/uL Normal 0.10-1.00 [facility] Comment on above: Performed By: #### 5 7021-8 ####ANDI CHAUDHARY L ([id number])[facility] ([facility])[address] [place] [address] Monocytes/100 WBC (Bld) 6.5 % Normal 2.0-10.0 [facility] Comment on above: Performed By: #### 5 7021-8 ####ANDI Cotter ([id number])[facility] ([facility])[address]44 [place] [address] Neutrophils (Bld) [#/Vol] 7.85 x10*3/uL High 1.20-7.70 [facility] Comment on above: Result Comment: Perc ent differential counts (%) should be interpreted in the context of the absolute cell counts (cells/uL). Performed By: #### 5 7021-8 ####ANDI RAJPUTMOTZJYOTI L ([id number])[facility] ([facility])[address] [place] [address] Neutrophils/100 WBC (Bld) 79.1 % Normal 40.0-80.0 [facility] Comment on above: Performed By: #### 5 7021-8 ####ANDI RAJPUTMOEDELMIRAER L ([id number])[facility] ([facility])[address] [place] [address] Complete blood count panelon 03-19-2024 Erythrocyte distribution width (RBC) [Ratio] 14.3 % Normal 11.5-14.5 [facility] Comment on above: Performed By: #### 5 8410-2 ####ANDI Cotter ([id number])[facility] ([facility])[address] [place], [place] [address] Performed By: #### 5 7021-8 ####ANDI Cotter ([id number])[facility] ([facility])[address] [place], [place] [address] Hematocrit (Bld) [Volume fraction] 31.9 % Low 36.0-46.0 [facility] Comment on above: Performed By: #### 5 8410-2 ####ANDI Cotter ([id number])[facility] ([facility])[address] [place], [place] [address] Performed By: #### 5 7021-8 ####ANDI Cotter ([id number])[facility] ([facility])[address] [place], [place] [address] Hemoglobin (Bld) [Mass/Vol] 10.0 g/dL Low 12.0-16.0 [facility] Comment on above: Performed By: #### 5 8410-2 ####ANDI Cotter ([id number])[facility] ([facility])[address] [place], [place] [address] Performed By: #### 5 7021-8 ####ANDI Cotter ([id number])[facility] ([facility])[address] [place] [address] MCH (RBC) [Entitic mass] 27.1 pg Normal 26.0-34.0 [facility] Comment on above: Performed By: #### 5 8410-2 ####ANDI Cotter ([id number])[facility] ([facility])[address] [place] [address] Performed By: #### 5 7021-8 ####ANDI Cotter ([id number])[facility] ([facility])[address] [place] [address], [place] [address] MCHC (RBC) [Mass/Vol] 31.3 g/dL Low 32.0-36.0 [facility] Comment on above: Performed By: #### 5 8410-2 ####ANDI Cotter ([id number])[facility] ([facility])[address] [place] [address] Performed By: #### 5 7021-8 ####ANDI Cotter ([id number])[facility] ([facility])[address] [place] [address] MCV (RBC) [Entitic vol] 86 fL Normal 80-100 [facility] Comment on above: Performed By: #### 5 8410-2 ####ANDI Cotter ([id number])[facility] ([facility])[address] [place] [address] Performed By: #### 5 7021-8 ####ANDI Cotter ([id number])[facility] ([facility])[address] [place] [address] 68[address] Nucleated RBC/100 WBC (Bld) [Ratio] 0.0 /100 WBCs Normal 0.0-0.0 [facility] Comment on above: Performed By: #### 5 8410-2 ####ANDI Cotter ([id number])[facility] ([facility])[address] [place] [address] Performed By: #### 5 7021-8 ####ANDI Cotter ([id number])[facility] ([facility])[address] [place] [address] Platelets (Bld) [#/Vol] 311 x10*3/uL Normal 150-450 [facility] Comment on above: Performed By: #### 5 8410-2 ####ANDI Cotter ([id number])[facility] ([facility])[address] [place] [address] Performed By: #### 5 7021-8 ####ANDI Cotter ([id number])[facility] ([facility])[address] [place] [address] RBC (Bld) [#/Vol] 3.69 x10*6/uL Low 4.00-5.[address] [facility] Comment on above: Performed By: #### 5 8410-2 ####ANDI Cotter ([id number])[facility] ([facility])[address] [place] [address] Performed By: #### 5 7021-8 ####ANDI Cotter ([id number])[facility] ([facility])[address] [place] [address] 86252 WBC (Bld) [#/Vol] 10.1 x10*3/uL Normal 4.4-11.[address] [facility] Comment on above: Performed By: #### 5 8410-2 ####ANDI Cotter ([id number])[facility] ([facility])[address] [place] [address] Performed By: #### 5 7021-8 ####ANDI Cotter ([id number])[facility] ([facility])[address] [place] [address]222 Comprehensive metabolic 2000 panelon 03-19-2024 Albumin BCP dye [Mass/Vol] 3.6 g/dL Normal 3.4-5.0 [facility] Comment on above: Performed By: #### 2 4323-8 ####ANDI Cotter ([id number])[facility] ([facility])[address] [place] [address] ALP [Catalytic activity/Vol] 129 U/L High 33-110 [facility] Comment on above: Performed By: #### 2 4323-8 ####ANDI CHAUDHARY L ([id number])[facility] ([facility])[address] [place] [address] 90803 ALT With P-5'-P [Catalytic activity/Vol] 43 U/L Normal 7-45 [facility] Comment on above: Result Comment: Evelyn ents treated with Sulfasalazine may generate falsely decreased results for ALT. Performed By: #### 2 4323-8 ####ANDI Cotter ([id number])[facility] ([facility])[address] [place] [address] Anion gap [Moles/Vol] 17 mmol/L Normal 10-20 [facility] Comment on above: Performed By: #### 2 4323-8 ####ANDI Cotter ([id number])[facility] ([facility])[address] [place] [address] AST With P-5'-P [Catalytic activity/Vol] 22 U/L Normal 9-39 [facility] Comment on above: Performed By: #### 2 4323-8 ####ANDI Cotter ([id number])[facility] ([facility])[address] [place] [address] Bilirubin [Mass/Vol] 0.4 mg/dL Normal 0.0-1.[address] [facility] Comment on above: Performed By: #### 2 4323-8 ####ANDI Cotter ([id number])[facility] ([facility])[address] [place] [address] Calcium [Mass/Vol] 9.2 mg/dL Normal 8.6-10.6 [facility] Comment on above: Performed By: #### 2 4323-8 ####ANDI Cotter ([id number])[facility] ([facility])[address] [place] [address] Chloride [Moles/Vol] 101 mmol/L Normal 98-[address] [facility] Comment on above: Performed By: #### 2 4323-8 ####ANDI CHAUDHARY L ([id number])[facility] ([facility])[address] [place] [address] CO2 [Moles/Vol] 22 mmol/L Normal 21-32 [facility] Comment on above: Performed By: #### 2 4323-8 ####ANDI CHAUDHARY L ([id number])[facility] ([facility])[address] [place] [address] Creatinine [Mass/Vol] 0.50 mg/dL Normal 0.50-1.05 [facility] Comment on above: Performed By: #### 2 4323-8 ####ANDI Cotter ([id number])[facility] ([facility])[address] [place] [address] GFR/1.73 sq M.predicted MDRD (S/P/Bld) [Vol rate/Area] mL/min/{1.73_m2} Normal >60 [facility] Comment on above: Result Comment: Calc ulations of estimated GFR are performed using the 2020 CKD-EPI Study Refit equation without the race variable for the IDMS-Traceable creatinine methods.https://jasn.asnjournals.org/content/early// N.5528700585 Performed By: #### 2 4323-8 ####ANDI Cotter ([id number])[facility] ([facility])[address] [place] [address] Glucose [Mass/Vol] 135 mg/dL High 74-99 [facility] Comment on above: Performed By: #### 2 4323-8 ####ANDI Cotter ([id number])[facility] ([facility])[address] [place] [address] Potassium [Moles/Vol] 3.5 mmol/L Normal 3.5-5.3 [facility] Comment on above: Performed By: #### 2 4323-8 ####ANDI Cotter ([id number])[facility] ([facility])[address] [place] [address] Protein [Mass/Vol] 7.5 g/dL Normal 6.4-8.2 [facility] Comment on above: Performed By: #### 2 4323-8 ####ANDI Cotter ([id number])[facility] ([facility])[address] [place] [address] Sodium [Moles/Vol] 136 mmol/L Normal 136-145 [facility] Comment on above: Performed By: #### 2 4323-8 ####ANDI Cotter ([id number])[facility] ([facility])[address] [place] [address] Urea nitrogen [Mass/Vol] 7 mg/dL Normal 6-23 [facility] Comment on above: Performed By: #### 2 4323-8 ####ANDI Cotter ([id number])[facility] ([facility])[address] [place] [address] Glucose Test strip manual (B ld) [Mass/Vol]on 03-19-2024 Glucose [Mass/Vol] 103 mg/dL High 74-99 [facility] Comment on above: Performed By: #### 2 341-6 ####ANDI Cotter ([id number])[facility] ([facility])[address] [place] [address] Glucose [Mass/Vol] 124 mg/dL High 74-99 [facility] Comment on above: Performed By: #### 2 341-6 ####ANDI Cotter ([id number])[facility] ([facility])[address] [place] [address] Glucose [Mass/Vol] 153 mg/dL High 74-99 [facility] Comment on above: Performed By: #### 2 341-6 ####ANDI Cotter ([id number])[facility] ([facility])[address] [place] [address] Glucose [Mass/Vol] 133 mg/dL High 74-99 [facility] Comment on above: Performed By: #### 2 341-6 ####ANDI Cotter ([id number])[facility] ([facility])[address] [place] [address] Glucose [Mass/Vol] 132 mg/dL High 74-[address] [place] [address] Comment on above: Performed By: #### 2 341-6 ####ANDI Cotter ([id number])[facility] ([facility])[address] [place] [address] Glucose [Mass/Vol] 146 mg/dL High 74-99 [facility] Comment on above: Performed By: #### 2 341-6 ####ANDI Cotter ([id number])[facility] ([facility])[address] [place] [address] Heparin.unfractionatedon Heparin unfractionated Chromogenic method Qn (PPP) 0.5 IU/mL Normal See Comment Below for Therapeutic Ranges [facility] Comment on above: [...] please refer to local Pharmacy and the [facility] Guidelines for Anticoagulation Therapy available on the [facility] intranet at: [email or web address]_[email or web address] Performed By: #### 3 274-8 ####ANDI Cotter ([id number])[facility] ([facility])[address] [place], [place] [address] Heparin unfractionated Chromogenic method Qn (PPP) 0.9 IU/mL Normal See Comment Below for Therapeutic Ranges [facility] Comment on above: [...] please refer to local Pharmacy and the [facility] Guidelines for Anticoagulation Therapy available on the [facility] intranet at: [email or web address]_[email or web address] Performed By: #### 3 274-8 ####ANDI Cotter ([id number])[facility] ([facility])[address] [place] [address] Heparin unfractionated Chromogenic method Qn (PPP) 0.1 IU/mL Normal See Comment Below for Therapeutic Ranges [facility] Comment on above: [...] please refer to local Pharmacy and the [facility] Guidelines for Anticoagulation Therapy available on the [facility] intranet at: [email or web address]_Guidelines_for_[email or web address].aspx Performed By: #### 3 274-8 ####ANDI Cotter ([id number])[facility] ([facility])[address] [place] [address] Magnesiumon 03-19-2024 Magnesium [Mass/Vol] 2.03 mg/dL Normal 1.60-2.[address] [facility] Comment on above: Performed By: #### 1 9123-9 ####ANDI Cotter ([id number])[facility] ([facility])[address] [place] [address] PT and aPTT panel Coag (PPP) on 03-19-2024 aPTT Coag (PPP) [Time] 25 s Low 27-38 [facility] Comment on above: Order Comment: The A PTT is no longer used for monitoring Unfractionated Heparin Therapy. For monitoring Heparin Therapy, use the Heparin Assay. Performed By: #### 3 4529-8 ####ANDI Cotter ([id number])[facility] ([facility])[address] [place] [address] INR Coag (PPP) [Relative time] 1.3 High 0.9-1.1 [facility] Comment on above: Order Comment: The A PTT is no longer used for monitoring Unfractionated Heparin Therapy. For monitoring Heparin Therapy, use the Heparin Assay. Performed By: #### 3 4529-8 ####ANDI Cotter ([id number])[facility] ([facility])[address] [place] [address] PT Coag (PPP) [Time] 14.1 s High 9.8-12.[address] [facility] Comment on above: Order Comment: The A PTT is no longer used for monitoring Unfractionated Heparin Therapy. For monitoring Heparin Therapy, use the Heparin Assay. Performed By: #### 3 4529-8 ####ANDI Cotter ([id number])[facility] ([facility])[address] [place] [address] Phosphateon 03-19-2024 Phosphate [Mass/Vol] 3.6 mg/dL Normal 2.5-4.[address] [facility] Comment on above: Result Comment: The performance characteristics of phosphorus testing in heparinized plasma have been validated by the individual laboratory site where testing is performed. Testing on heparinized plasma is not approved by the FDA; however, such approval is not necessary. Performed By: #### 2 777-1 ####ANDI Cotter ([id number])[facility] ([facility])[address] [place] [address] CBC panel Auto (Bld)on 03-18 Erythrocyte distribution width (RBC) [Ratio] 14.5 % Normal 11.5-14.5 [facility] Comment on above: Performed By: #### 5 8410-2 ####ANDI Cotter ([id number])[facility] ([facility])[address] [place] [address] Hematocrit (Bld) [Volume fraction] 32.8 % Low 36.0-46.0 [facility] Comment on above: Performed By: #### 5 8410-2 ####ANDI Cotter ([id number])[facility] ([facility])[address] [place] [address] Hemoglobin (Bld) [Mass/Vol] 10.2 g/dL Low 12.0-16.0 [facility] Comment on above: Performed By: #### 5 8410-2 ####ANDI Cotter ([id number])[facility] ([facility])[address] [place] [address] MCH (RBC) [Entitic mass] 27.0 pg Normal 26.0-34.0 [facility] Comment on above: Performed By: #### 5 8410-2 ####ANDI Cotter ([id number])[facility] ([facility])[address] [place] [address] MCHC (RBC) [Mass/Vol] 31.1 g/dL Low 32.0-36.0 [facility] Comment on above: Performed By: #### 5 8410-2 ####ANDI Cotter ([id number])[facility] ([facility])[address] [place] [address] MCV (RBC) [Entitic vol] 87 fL Normal 80-100 [facility] Comment on above: Performed By: #### 5 8410-2 ####ANDI Cotter ([id number])[facility] ([facility])[address] [place] [address] Nucleated RBC/100 WBC (Bld) [Ratio] 0.0 /100 WBCs Normal 0.0-0.0 [facility] Comment on above: Performed By: #### 5 8410-2 ####ANDI Cotter ([id number])[facility] ([facility])[address] [place] [address] Platelets (Bld) [#/Vol] 282 x10*3/uL Normal 150-450 [facility] Comment on above: Performed By: #### 5 8410-2 ####ANDI Cotter ([id number])[facility] ([facility])[address] [place] [address] RBC (Bld) [#/Vol] 3.78 x10*6/uL Low 4.00-5.[address] [facility] Comment on above: Performed By: #### 5 8410-2 ####ANDI Cotter ([id number])[facility] ([facility])[address] [place] [address] WBC (Bld) [#/Vol] 11.7 x10*3/uL High 4.4-11.[address] [facility] Comment on above: Performed By: #### 5 8410-2 ####ANDI Cotter ([id number])[facility] ([facility])[address] [place] [address] Comprehensive metabolic 2000 panelon 03-18-2024 Albumin BCP dye [Mass/Vol] 3.7 g/dL Normal 3.4-5.0 [facility] Comment on above: Performed By: #### 2 4323-8 ####ANDI Cotter ([id number])[facility] ([facility])[address] [place] [address] ALP [Catalytic activity/Vol] 132 U/L High 33-110 [facility] Comment on above: Performed By: #### 2 4323-8 ####ANDI Cotter ([id number])[facility] ([facility])[address] [place] [address] ALT With P-5'-P [Catalytic activity/Vol] 63 U/L High 7-45 [facility] Comment on above: Result Comment: Evelyn ents treated with Sulfasalazine may generate falsely decreased results for ALT. Performed By: #### 2 4323-8 ####ANDI Cotter ([id number])[facility] ([facility])[address] [place] [address] Anion gap [Moles/Vol] 14 mmol/L Normal 10-20 [facility] Comment on above: Performed By: #### 2 4323-8 ####ANDI Cotter ([id number])[facility] ([facility])[address] [place] [address] AST With P-5'-P [Catalytic activity/Vol] 33 U/L Normal 9-39 [facility] Comment on above: Performed By: #### 2 4323-8 ####ANDI Cotter ([id number])[facility] ([facility])[address] [place] [address] Bilirubin [Mass/Vol] 0.7 mg/dL Normal 0.0-1.[address] [facility] Comment on above: Performed By: #### 2 4323-8 ####ANDI CHAUDHARY L ([id number])[facility] ([facility])[address] [place] [address] Calcium [Mass/Vol] 8.8 mg/dL Normal 8.6-10.6 [facility] Comment on above: Performed By: #### 2 4323-8 ####ANDI CHAUDHARY L ([id number])[facility] ([facility])[address] [place] [address] Chloride [Moles/Vol] 99 mmol/L Normal 98-[address] [facility] Comment on above: Performed By: #### 2 4323-8 ####ANDI CHAUDHARY L ([id number])[facility] ([facility])[address] [place] [address] CO2 [Moles/Vol] 24 mmol/L Normal 21-32 [facility] Comment on above: Performed By: #### 2 4323-8 ####ANDI CHAUDHARY L ([id number])[facility] ([facility])[address] [place] [address] Creatinine [Mass/Vol] 0.47 mg/dL Low 0.50-1.05 [facility] Comment on above: Performed By: #### 2 4323-8 ####ANDI CHAUDHARY L ([id number])[facility] ([facility])[address] [place] [address] GFR/1.73 sq M.predicted MDRD (S/P/Bld) [Vol rate/Area] mL/min/{1.73_m2} Normal >60 [facility] Comment on above: Result Comment: Calc ulations of estimated GFR are performed using the 2020 CKD-EPI Study Refit equation without the race variable for the IDMS-Traceable creatinine methods.https://jasn.asnjournals.org/content// N.8886266252 Performed By: #### 2 4323-8 ####ANDI Cotter ([id number])[facility] ([facility])[address] [place] [address] Glucose [Mass/Vol] 169 mg/dL High 74-99 [facility] Comment on above: Performed By: #### 2 4323-8 ####ANDI Cotter ([id number])[facility] ([facility])[address] [place] [address] Potassium [Moles/Vol] 3.7 mmol/L Normal 3.5-5.3 [facility] Comment on above: Performed By: #### 2 4323-8 ####ANDI Cotter ([id number])[facility] ([facility])[address] [place] [address] Protein [Mass/Vol] 7.5 g/dL Normal 6.4-8.2 [facility] Comment on above: Performed By: #### 2 4323-8 ####ANDI Cotter ([id number])[facility] ([facility])[address] [place] [address] Sodium [Moles/Vol] 133 mmol/L Low 136-145 [facility] Comment on above: Performed By: #### 2 4323-8 ####ANDI Cotter ([id number])[facility] ([facility])[address] [place] [address] Urea nitrogen [Mass/Vol] 8 mg/dL Normal 6-23 [facility] Comment on above: Performed By: #### 2 4323-8 ####ANDI CHAUDHARY L ([id number])[facility] ([facility])[address] [place] [address] Glucose Test strip manual (B ld) [Mass/Vol]on 03-18-2024 Glucose [Mass/Vol] 159 mg/dL High 74-99 [facility] Comment on above: Performed By: #### 2 341-6 ####ANDI Cotter ([id number])[facility] ([facility])[address] [place] [address] Glucose [Mass/Vol] 159 mg/dL High 74-[address] [place] [address] Comment on above: Performed By: #### 2 341-6 ####ANDI MADRIDTZER L (79215)[facility] ([facility])[address] [place] [address] Glucose [Mass/Vol] 156 mg/dL High [address] [place] [address] Comment on above: Performed By: #### 2 341-6 ####ANDI Cotter ([id number])[facility] ([facility])[address] [place] [address] Glucose [Mass/Vol] 150 mg/dL High [address] [place] [address] Comment on above: Performed By: #### 2 341-6 ####ANDI Cotter ([id number])[facility] ([facility])[address] [place] [address] Heparin.unfractionatedon Heparin unfractionated Chromogenic method Qn (PPP) 0.5 IU/mL Normal See Comment Below for Therapeutic Ranges [facility] Comment on above: [...] please refer to local Pharmacy and the [facility] Guidelines for Anticoagulation Therapy available on the [facility] intranet at: [email or web address]_[email or web address] Performed By: #### 3 274-8 ####ANDI CHAUDHARY L ([id number])[facility] ([facility])[address] [place] [address] Magnesiumon 03-18-2024 Magnesium [Mass/Vol] 2.32 mg/dL Normal 1.60-2.[address] [facility] Comment on above: Performed By: #### 1 9123-9 ####ANDI Cotter ([id number])[facility] ([facility])[address] [place] [address] PT and aPTT panel Coag (PPP) on 03-18-2024 aPTT Coag (PPP) [Time] 115 s Critically high 27-38 [facility] Comment on above: Order Comment: The A PTT is no longer used for monitoring Unfractionated Heparin Therapy. For monitoring Heparin Therapy, use the Heparin Assay. Performed By: #### 3 4529-8 ####ANDI Cotter ([id number])[facility] ([facility])[address] [place] [address] INR Coag (PPP) [Relative time] 1.5 High 0.9-1.1 [facility] Comment on above: Order Comment: The A PTT is no longer used for monitoring Unfractionated Heparin Therapy. For monitoring Heparin Therapy, use the Heparin Assay. Performed By: #### 3 4529-8 ####ANDI Cotter ([id number])[facility] ([facility])[address] [place] [address] PT Coag (PPP) [Time] 16.7 s High 9.8-12.[address] [facility] Comment on above: Order Comment: The A PTT is no longer used for monitoring Unfractionated Heparin Therapy. For monitoring Heparin Therapy, use the Heparin Assay. Performed By: #### 3 4529-8 ####ANDI Cotter ([id number])[facility] ([facility])[address] [place] [address] Phosphateon 03-18-2024 Phosphate [Mass/Vol] 2.6 mg/dL Normal 2.5-4.[address] [facility] Comment on above: Result Comment: The performance characteristics of phosphorus testing in heparinized plasma have been validated by the individual laboratory site where testing is performed. Testing on heparinized plasma is not approved by the FDA; however, such approval is not necessary. Performed By: #### 2 777-1 ####ANDI Cotter ([id number])[facility] ([facility])[address] [place] [address] Coagulation tissue factor in ducedon 03-17-2024 PT Coag (PPP) [Time] 16.5 s High 9.8-12.[address] [facility] Comment on above: Performed By: #### 5 902-2 ####BRYAN EZRA ([id number])[facility] ([facility])[address] [place] [address] Comprehensive metabolic 2000 panelon 03-17-2024 Albumin BCP dye [Mass/Vol] 3.1 g/dL Low 3.4-5.0 [facility] Comment on above: Performed By: #### 2 4323-8 ####ANDI Cotter ([id number])[facility] ([facility])[address] [place] [address] ALP [Catalytic activity/Vol] 115 U/L High 33-110 [facility] Comment on above: Performed By: #### 2 4323-8 ####ANDI Cotter ([id number])[facility] ([facility])[address] [place] [address] ALT With P-5'-P [Catalytic activity/Vol] 57 U/L High 7-45 [facility] Comment on above: Result Comment: Evelyn ents treated with Sulfasalazine may generate falsely decreased results for ALT. Performed By: #### 2 4323-8 ####ANDI Cotter ([id number])[facility] ([facility])[address] [place] [address] Anion gap [Moles/Vol] 14 mmol/L Normal 10-20 [facility] Comment on above: Performed By: #### 2 4323-8 ####ANDI Cotter ([id number])[facility] ([facility])[address] [place] [address] AST With P-5'-P [Catalytic activity/Vol] 48 U/L High 9-39 [facility] Comment on above: Performed By: #### 2 4323-8 ####ANDI Cotter ([id number])[facility] ([facility])[address] [place] [address] Bilirubin [Mass/Vol] 0.8 mg/dL Normal 0.0-1.[address] [facility] Comment on above: Performed By: #### 2 4323-8 ####ANDI Cotter ([id number])[facility] ([facility])[address] [place] [address] Calcium [Mass/Vol] 7.3 mg/dL Low 8.6-10.6 [facility] Comment on above: Performed By: #### 2 4323-8 ####ANDI Cotter ([id number])[facility] ([facility])[address] [place] [address] Chloride [Moles/Vol] 104 mmol/L Normal 98-[address] [facility] Comment on above: Performed By: #### 2 4323-8 ####ANDI Cotter ([id number])[facility] ([facility])[address] [place] [address] CO2 [Moles/Vol] 21 mmol/L Normal 21-32 [facility] Comment on above: Performed By: #### 2 4323-8 ####ANDI Cotter ([id number])[facility] ([facility])[address] [place] [address] Creatinine [Mass/Vol] 0.46 mg/dL Low 0.50-1.05 [facility] Comment on above: Performed By: #### 2 4323-8 ####ANDI Cotter ([id number])[facility] ([facility])[address] [place] [address] GFR/1.73 sq M.predicted MDRD (S/P/Bld) [Vol rate/Area] mL/min/{1.73_m2} Normal >60 [facility] Comment on above: Result Comment: Calc ulations of estimated GFR are performed using the 2020 CKD-EPI Study Refit equation without the race variable for the IDMS-Traceable creatinine methods.https://jasn.asnjournals.org/content// N.3333810333 Performed By: #### 2 4323-8 ####ANDI RENEEER L ([id number])[facility] ([facility])[address] [place] [address] Glucose [Mass/Vol] 149 mg/dL High 74-99 [facility] Comment on above: Performed By: #### 2 4323-8 ####ANDI RAJPUTMOTZER L ([id number])[facility] ([facility])[address] [place] [address] Potassium [Moles/Vol] 3.1 mmol/L Low 3.5-5.3 [facility] Comment on above: Performed By: #### 2 4323-8 ####ANDI RAJPUTMOTZER L (51554)[facility] ([facility])[address] [place] [address] Protein [Mass/Vol] 6.2 g/dL Low 6.4-8.2 [facility] Comment on above: Performed By: #### 2 4323-8 ####ANDI RAJPUTMOTZER L ([id number])[facility] ([facility])[address] [place] [address] Sodium [Moles/Vol] 136 mmol/L Normal 136-145 [facility] Comment on above: Performed By: #### 2 4323-8 ####ANDI SCHMOTZER L ([id number])[facility] ([facility])[address] [place] [address] Urea nitrogen [Mass/Vol] 8 mg/dL Normal 6-23 [facility] Comment on above: Performed By: #### 2 4323-8 ####ANDI RAJPUTMOTZER L ([id number])[facility] ([facility])[address] [place] [address] ECG 12-LEADon 03-17-2024 ECG 12-LEAD Ventricular Rate 99 Atrial Rate 99 P-R Interval 136 QRS Duration 80 Q-T Interval 340 QTC Calculation(Bazett) 436 P [place] 33 R [place] -5 T [place] 34 QRS Count 16 Q Onset 211 P Onset 143 P Offset 194 T Offset 381 QTC Fredericia 401 Diagnosis Normal sinus rhythm Normal ECG When compared with ECG of 05-MAR-2024 17:23, No significant change was found See ED provider note for full interpretation and clinical correlation Confirmed by Hemalatha Lange ([id number]) on 03/24/2024 4:40:33 PM Normal [facility] Glucose Test strip manual (B ld) [Mass/Vol]on 03-17-2024 Glucose [Mass/Vol] 180 mg/dL High [address] [place] [address] Comment on above: Performed By: #### 2 341-6 ####ANDI Cotter ([id number])[facility] ([facility])[address] [place] [address] Glucose [Mass/Vol] 173 mg/dL High [address] [place] [address] Comment on above: Performed By: #### 2 341-6 ####ANDI Cotter ([id number])[facility] ([facility])[address] [place] [address] Glucose [Mass/Vol] 181 mg/dL High [address] [place] [address] Comment on above: Performed By: #### 2 341-6 ####IRVIN MUNGUIA ([id number])[facility] ([facility])[address] [place] [address] Heparin.unfractionatedon Heparin unfractionated Chromogenic method Qn (PPP) 0.5 IU/mL Normal See Comment Below for Therapeutic Ranges [facility] Comment on above: [...] please refer to local Pharmacy and the [facility] Guidelines for Anticoagulation Therapy available on the [facility] intranet at: [email or web address]_[email or web address] Performed By: #### 3 274-8 ####ANDI Cotter ([id number])[facility] ([facility])[address] [place] [address] Magnesiumon 03-17-2024 Magnesium [Mass/Vol] 1.63 mg/dL Normal 1.60-2.[address] [facility] Comment on above: Performed By: #### 1 9123-9 ####ANDI Cotter ([id number])[facility] ([facility])[id number] [place] [id number] PT Coag (PPP) [Time]on 03-17 INR Coag (PPP) [Relative time] 1.4 High 0.9-1.1 [facility] Comment on above: Performed By: #### 5 902-2 ####BRYAN EZRA ([id number])[facility] ([facility])[address] [place] [address] PT and aPTT panel Coag (PPP) on 03-17-2024 aPTT Coag (PPP) [Time] 24 s Low 27-38 [facility] Comment on above: Order Comment: The A PTT is no longer used for monitoring Unfractionated Heparin Therapy. For monitoring Heparin Therapy, use the Heparin Assay. Performed By: #### 3 4529-8 ####ANDI Cotter ([id number])[facility] ([facility])[address] [place] [address] INR Coag (PPP) [Relative time] 1.5 High 0.9-1.1 [facility] Comment on above: Order Comment: The A PTT is no longer used for monitoring Unfractionated Heparin Therapy. For monitoring Heparin Therapy, use the Heparin Assay. Performed By: #### 3 4529-8 ####ANDI Cotter ([id number])[facility] ([facility])[address] [place] [address] PT Coag (PPP) [Time] 17.2 s High 9.8-12.[address] [facility] Comment on above: Order Comment: The A PTT is no longer used for monitoring Unfractionated Heparin Therapy. For monitoring Heparin Therapy, use the Heparin Assay. Performed By: #### 3 4529-8 ####ANDI Cotter ([id number])[facility] ([facility])[address] [place] [address] Phosphateon 03-17-2024 Phosphate [Mass/Vol] 2.9 mg/dL Normal 2.5-4.[address] [facility] Comment on above: Result Comment: The performance characteristics of phosphorus testing in heparinized plasma have been validated by the individual laboratory site where testing is performed. Testing on heparinized plasma is not approved by the FDA; however, such approval is not necessary. Performed By: #### 2 777-1 ####ANDI Cotter ([id number])[facility] ([facility])[address] [place] [address] 18517 XR ABDOMEN 1 VIEWon 03-17-20 24 XR ABDOMEN 1 VIEW Normal [facility] Amylaseon 03-16-2024 Amylase [Catalytic activity/Vol] 76 U/L Normal 29-103 [facility] Comment on above: Performed By: #### 1 798-8 ####IRVIN MUNGUIA ([id number])[facility] ([facility])[address] [place] [address] 87792 CBC W Auto Differential pane l (Bld)on 03-16-2024 Basophils (Bld) [#/Vol] 0.04 x10*3/uL Normal 0.00-0.10 [facility] Comment on above: Performed By: #### 5 7021-8 ####IRVIN MUNGUIA ([id number])[facility] ([facility])[address] [place] [address] 34741 Basophils/100 WBC (Bld) 0.3 % Normal 0.0-2.0 [facility] Comment on above: Performed By: #### 5 7021-8 ####IRVIN MUNGUIA ([id number])[facility] ([facility])[address] [place] [address] 35551 Eosinophils (Bld) [#/Vol] 0.11 x10*3/uL Normal 0.00-0.70 [facility] Comment on above: Performed By: #### 5 7021-8 ####IRVIN MUNGUIA ([id number])[facility] ([facility])[address] [place], [place] [address] Eosinophils/100 WBC (Bld) 0.8 % Normal 0.0-6.0 [facility] Comment on above: Performed By: #### 5 7021-8 ####IRVIN MUNGUIA ([id number])[facility] ([facility])[address] [place] [address] Erythrocyte distribution width (RBC) [Ratio] 14.2 % Normal 11.5-14.5 [facility] Comment on above: Performed By: #### 5 7021-8 ####IRVIN MUNGUIA ([id number])[facility] ([facility])[address] [place] [address] Hematocrit (Bld) [Volume fraction] 36.8 % Normal 36.0-46.0 [facility] Comment on above: Performed By: #### 5 7021-8 ####IRVIN MUNGUIA ([id number])[facility] ([facility])[address] [place] [address] Hemoglobin (Bld) [Mass/Vol] 11.3 g/dL Low 12.0-16.0 [facility] Comment on above: Performed By: #### 5 7021-8 ####IRVIN MUNGUIA ([id number])[facility] ([facility])[address] [place] [address] 80811 Immature granulocytes (Bld) [#/Vol] 0.11 x10*3/uL Normal 0.00-0.70 [facility] Comment on above: Performed By: #### 5 7021-8 ####IRVIN MUNGUIA ([id number])[facility] ([facility])[address] [place] [address] Immature granulocytes/100 WBC (Bld) 0.8 % Normal 0.0-0.9 [facility] Comment on above: Result Comment: Debbie ture Granulocyte Count (IG) includes promyelocytes, myelocytes and metamyelocytes but does not include bands. Percent differential counts (%) should be interpreted in the context of the absolute cell counts (cells/UL). Performed By: #### 5 7021-8 ####IRVIN MUNGUIA ([id number])[facility] ([facility])[address] [place] [address] Lymphocytes (Bld) [#/Vol] 2.72 x10*3/uL Normal 1.20-4.80 [facility] Comment on above: Performed By: #### 5 7021-8 ####IRVIN MUNGUIA ([id number])[facility] ([facility])[address] [place] [address] Lymphocytes/100 WBC (Bld) 20.3 % Normal 13.0-44.0 [facility] Comment on above: Performed By: #### 5 7021-8 ####IRVIN MUNGUIA ([id number])[facility] ([facility])[address] [place] [address] 54577 MCH (RBC) [Entitic mass] 26.8 pg Normal 26.0-34.0 [facility] Comment on above: Performed By: #### 5 7021-8 ####IRVIN MUNGUIA ([id number])[facility] ([facility])[address] [place] [address] 62025 MCHC (RBC) [Mass/Vol] 30.7 g/dL Low 32.0-36.0 [facility] Comment on above: Performed By: #### 5 7021-8 ####IRVIN MUNGUIA ([id number])[facility] ([facility])[address] [place] [address] 48014 MCV (RBC) [Entitic vol] 87 fL Normal 80-100 [facility] Comment on above: Performed By: #### 5 7021-8 ####IRVIN MUNGUIA ([id number])[facility] ([facility])[address] [place] [address] 11699 Monocytes (Bld) [#/Vol] 0.62 x10*3/uL Normal 0.10-1.00 [facility] Comment on above: Performed By: #### 5 7021-8 ####IRVIN MUNGUIA ([id number])[facility] ([facility])[address] [place] [address] 66800 Monocytes/100 WBC (Bld) 4.6 % Normal 2.0-10.0 [facility] Comment on above: Performed By: #### 5 7021-8 ####IRVIN MUNGUIA ([id number])[facility] ([facility])[address] [place] [address] 35086 Neutrophils (Bld) [#/Vol] 9.77 x10*3/uL High 1.20-7.70 [facility] Comment on above: Result Comment: Perc ent differential counts (%) should be interpreted in the context of the absolute cell counts (cells/uL). Performed By: #### 5 7021-8 ####IRVIN MUNGUIA ([id number])[facility] ([facility])[address] [place] [address] 79639 Neutrophils/100 WBC (Bld) 73.2 % Normal 40.0-80.0 [facility] Comment on above: Performed By: #### 5 7021-8 ####IRVIN MUNGUIA ([id number])[facility] ([facility])[address] [place] [address] 91514 Nucleated RBC/100 WBC (Bld) [Ratio] 0.0 /100 WBCs Normal 0.0-0.0 [facility] Comment on above: Performed By: #### 5 7021-8 ####IRVIN MUNGUIA ([id number])[facility] ([facility])[address] [place] [address] 19254 Platelets (Bld) [#/Vol] 322 x10*3/uL Normal 150-450 [facility] Comment on above: Performed By: #### 5 7021-8 ####IRVIN MUNGUIA ([id number])[facility] ([facility])[address] [place] [address] RBC (Bld) [#/Vol] 4.21 x10*6/uL Normal 4.00-5.[address] [facility] Comment on above: Performed By: #### 5 7021-8 ####IRVIN MUNGUIA ([id number])[facility] ([facility])[address] [place] [address] WBC (Bld) [#/Vol] 13.4 x10*3/uL High 4.4-11.[address] [facility] Comment on above: Performed By: #### 5 7021-8 ####IRVIN MUNGUIA ([id number])[facility] ([facility])[address] [place] [address] CT ABDOMEN PELVIS W IV CONTR Reny 03-16-2024 CT ABDOMEN PELVIS W IV CONTRAST Normal [facility] Comprehensive metabolic 2000 panelon 03-16-2024 Albumin BCP dye [Mass/Vol] 3.7 g/dL Normal 3.4-5.0 [facility] Comment on above: Performed By: #### 2 4323-8 ####IRVIN MUNGUIA ([id number])[facility] ([facility])[address] [place] [address] ALP [Catalytic activity/Vol] 129 U/L High 33-110 [facility] Comment on above: Performed By: #### 2 4323-8 ####IRVIN MUNGUIA ([id number])[facility] ([facility])[address] [place] [address] ALT With P-5'-P [Catalytic activity/Vol] 54 U/L High 7-45 [facility] Comment on above: Result Comment: Evelyn ents treated with Sulfasalazine may generate falsely decreased results for ALT. Performed By: #### 2 4323-8 ####IRVIN MUNGUIA ([id number])[facility] ([facility])[address] [place] [address] Anion gap [Moles/Vol] 12 mmol/L Normal 10-20 [facility] Comment on above: Performed By: #### 2 4323-8 ####IRVIN MUNGUIA ([id number])[facility] ([facility])[address] [place] [address] AST With P-5'-P [Catalytic activity/Vol] 47 U/L High 9-39 [facility] Comment on above: Performed By: #### 2 4323-8 ####IRVIN MUNGUIA ([id number])[facility] ([facility])[address] [place] [address] 82495 Bilirubin [Mass/Vol] 0.3 mg/dL Normal 0.0-1.[address] [facility] Comment on above: Performed By: #### 2 4323-8 ####IRVIN MUNGUIA ([id number])[facility] ([facility])[address] [place] [address] 88537 Calcium [Mass/Vol] 8.7 mg/dL Normal 8.6-10.3 [facility] Comment on above: Performed By: #### 2 4322-8 ####IRVIN MUNGUIA ([id number])[facility] ([facility])[address] [place] [address] 41678 Chloride [Moles/Vol] 100 mmol/L Normal 98-[address] [facility] Comment on above: Performed By: #### 2 432-8 ####IRVIN MUNGUIA ([id number])[facility] ([facility])[address] [place] [address] 17486 CO2 [Moles/Vol] 25 mmol/L Normal 21-32 [facility] Comment on above: Performed By: #### 2 4323-8 ####IRVIN MUNGUIA ([id number])[facility] ([facility])[address] [place] [address] 96315 Creatinine [Mass/Vol] 0.67 mg/dL Normal 0.50-1.05 [facility] Comment on above: Performed By: #### 2 4323-8 ####IRVIN MUNGUIA ([id number])[facility] ([facility])[address] [place] [address] 09558 GFR/1.73 sq M.predicted MDRD (S/P/Bld) [Vol rate/Area] mL/min/{1.73_m2} Normal >60 [facility] Comment on above: Result Comment: Calc ulations of estimated GFR are performed using the 2020 CKD-EPI Study Refit equation without the race variable for the IDMS-Traceable creatinine methods.https://jasn.asnjournals.org/content/early/ N.9224262349 Performed By: #### 2 4323-8 ####IRVIN MUNGUIA ([id number])[facility] ([facility])[address] [place] [address] 99671 Glucose [Mass/Vol] 174 mg/dL High 74-99 [facility] Comment on above: Performed By: #### 2 4323-8 ####IRVIN MUNGUIA ([id number])[facility] ([facility])[address] [place] [address] 49483 Potassium [Moles/Vol] 3.5 mmol/L Normal 3.5-5.3 [facility] Comment on above: Performed By: #### 2 4323-8 ####IRVIN MUNGUIA ([id number])[facility] ([facility])[address] [place] [address] 32678 Protein [Mass/Vol] 7.0 g/dL Normal 6.4-8.2 [facility] Comment on above: Performed By: #### 2 4323-8 ####IRVIN MUNGUIA ([id number])[facility] ([facility])[address] [place] [address] 32245 Sodium [Moles/Vol] 133 mmol/L Low 136-145 [facility] Comment on above: Performed By: #### 2 4323-8 ####IRVIN MUNGUIA ([id number])[facility] ([facility])[address] [place] [address] 58685 Urea nitrogen [Mass/Vol] 17 mg/dL Normal 6-23 [facility] Comment on above: Performed By: #### 2 4323-8 ####IRVIN MUNGUIA ([id number])[facility] ([facility])[address] [place] [address] 25222 Lactateon 03-16-2024 Lactate [Moles/Vol] 1.7 mmol/L Normal 0.4-2.0 [facility] Comment on above: Order Comment: Venip uncture immediately after or during the administration of Metamizole may lead to falsely low results. Testing should be performed immediatelyprior to Metamizole dosing. Performed By: #### 2 524-7 ####IRVIN MUNGUIA ([id number])[facility] ([facility])[address] [place] [address] Magnesiumon 03-16-2024 Magnesium [Mass/Vol] 1.91 mg/dL Normal 1.60-2.[address] [facility] Comment on above: Performed By: #### 1 9123-9 ####IRVIN MUNGUIA ([id number])[facility] ([facility])[address] [place], [place] [address] Triacylglycerol lipaseon Lipase [Catalytic activity/Vol] 65 U/L Normal 9-82 [facility] Comment on above: Order Comment: Venip uncture immediately after or during the administration of Metamizole may lead to falsely low results. Testing should be performed immediately prior to Metamizole dosing. Performed By: #### 3 040-3 ####IRVIN MUNGUIA ([id number])[facility] ([facility])[address] [place], [place] [address] Urinalysis complete W Reflex Culture panel (U)on 03-16-2024 Appearance (U) Turbid Normal Clear [facility] Comment on above: Performed By: #### 5 8077-9 ####IRVIN MUNGUIA ([id number])[facility] ([facility])[address] [place], [place] [address] Bilirubin (U) [Mass/Vol] Negative Normal NEGATIVE [facility] Comment on above: Performed By: #### 5 8077-9 ####IRVIN MUNGUIA ([id number])[facility] ([facility])[address] [place] [address] Calcium oxalate crystals Computer assisted (U) [#/Area] 4+ /HPF Abnormal NONE, 1+ [facility] Comment on above: Performed By: #### 5 8077-9 ####IRVIN MUNGUIA ([id number])[facility] ([facility])[address] [place] [address] Color (U) Yellow Normal Light-Yellow , Yellow, Dark-Yellow [facility] Comment on above: Performed By: #### 5 8077-9 ####IRVIN MUNGUIA ([id number])[facility] ([facility])[address] [place] [address] Epithelial cells.squamous Auto (Urine sed) [#/Area] 1-9 (SPARSE) Normal Reference range not established. [facility] Comment on above: Performed By: #### 5 8077-9 ####IRVIN MUNGUIA ([id number])[facility] ([facility])[address] [place] [address] Glucose Auto test strip (U) [Mass/Vol] Normal Normal Normal [facility] Comment on above: Performed By: #### 5 8077-9 ####IRVIN MUNGUIA ([id number])[facility] ([facility])[address] [place] [address] Ketones (U) [Mass/Vol] Negative Normal NEGATIVE [facility] Comment on above: Performed By: #### 5 8077-9 ####IRVIN MUNGUIA ([id number])[facility] ([facility])[address] [place], [place] [address] Leukocyte esterase Auto test strip Ql (U) Negative Normal NEGATIVE [facility] Comment on above: Performed By: #### 5 8077-9 ####IRVIN MUNGUIA ([id number])[facility] ([facility])[address] [place], [place] [address] Mucus Auto (Urine sed) [#/Area] FEW Normal Reference range not established. [facility] Comment on above: Performed By: #### 5 8077-9 ####IRVIN MUNGUIA ([id number])[facility] ([facility])[address] [place] [address] Nitrite Auto test strip Ql (U) Negative Normal NEGATIVE [facility] Comment on above: Performed By: #### 5 8077-9 ####IRVIN MUNGUIA ([id number])[facility] ([facility])[address] [place] [address] pH (U) 7.0 [pH] Normal 5.0, 5.5, 6.0, 6.5, 7.0, 7.5, 8.0 [facility] Comment on above: Performed By: #### 5 8077-9 ####IRVIN MUNGUIA ([id number])[facility] ([facility])[address] [place] [address] Protein (U) [Mass/Vol] 20 (TRACE) Normal NEGATIVE, 10 (TRACE), 20 (TRACE) [facility] Comment on above: Performed By: #### 5 8077-9 ####IRVIN MUNGUIA ([id number])[facility] ([facility])[address] [place] [address] RBC (U) [#/Vol] Negative Normal NEGATIVE [facility] Comment on above: Performed By: #### 5 8077-9 ####IRVIN MUNGUIA ([id number])[facility] ([facility])[address] [place] [address] RBC Auto (Urine sed) [#/Area] 3-5 Normal NONE, 1-2, 3-5 [facility] Comment on above: Performed By: #### 5 8077-9 ####IRVIN MUNGUIA ([id number])[facility] ([facility])[address] [place], [place] [address] Specific gravity (U) [Rel density] 1.028 Normal 1.005-1.035 [facility] Comment on above: Performed By: #### 5 8077-9 ####IRVIN MUNGUIA ([id number])[facility] ([facility])[address] [place] [address] Urobilinogen (U) [Mass/Vol] 3 (1+) Abnormal Normal [facility] Comment on above: Result Comment: Some pigments and medications may cause a false positive urobilinogen. Performed By: #### 5 8077-9 ####IRVIN MUNGUIA ([id number])[facility] ([facility])[address] [place] [address] 38429 WBC Auto (Urine sed) [#/Area] 1-5 Normal 1-5, [facility] Comment on above: Performed By: #### 5 8077-9 ####IRVIN MUNGUIA ([id number])[facility] ([facility])[address] [place] [address] 60674 Basic metabolic 2000 panelon 03-11-2024 Anion gap [Moles/Vol] 14 mmol/L Normal 10-20 [facility] Comment on above: Performed By: #### 2 4321-2 ####IRVIN MUNGUIA ([id number])[facility] ([facility])[address] [place] [address] 54534 Calcium [Mass/Vol] 9.0 mg/dL Normal 8.6-10.3 [facility] Comment on above: Performed By: #### 2 4321-2 ####IRVIN MUNGUIA ([id number])[facility] ([facility])[address] [place] [address] 74556 Chloride [Moles/Vol] 102 mmol/L Normal 98-[address] [facility] Comment on above: Performed By: #### 2 4321-2 ####IRVIN MUNGUIA ([id number])[facility] ([facility])[address] [place] [address] 34090 CO2 [Moles/Vol] 25 mmol/L Normal 21-32 [facility] Comment on above: Performed By: #### 2 4321-2 ####IRVIN MUNGUIA ([id number])[facility] ([facility])[address] [place] [address] 18907 Creatinine [Mass/Vol] 0.89 mg/dL Normal 0.50-1.05 [facility] Comment on above: Performed By: #### 2 4321-2 ####IRVIN MUNGUIA ([id number])[facility] ([facility])[address] [place] [address] 93385 Glomerular filtration rate/1.73 sq M.predicted 80 mL/min/1.73m*2 Normal >60 [facility] Comment on above: Result Comment: Calc ulations of estimated GFR are performed using the 2020 CKD-EPI Study Refit equation without the race variable for the IDMS-Traceable creatinine methods.https://jasn.asnjournals.org/content/early/ N.2879409255 Performed By: #### 2 4321-2 ####IRVIN MUNGUIA ([id number])[facility] ([facility])[address] [place] [address] 60069 Glucose [Mass/Vol] 159 mg/dL High 74-99 [facility] Comment on above: Performed By: #### 2 4321-2 ####IRVIN MUNGUIA ([id number])[facility] ([facility])[address] [place] [address] 59350 Potassium [Moles/Vol] 4.1 mmol/L Normal 3.5-5.3 [facility] Comment on above: Performed By: #### 2 4321-2 ####IRVIN MUNGUIA ([id number])[facility] ([facility])[address] [place] [address] 19789 Sodium [Moles/Vol] 137 mmol/L Normal 136-145 [facility] Comment on above: Performed By: #### 2 4321-2 ####IRVIN MUNGUIA ([id number])[facility] ([facility])[address] [place] [address] 46447 Urea nitrogen [Mass/Vol] 10 mg/dL Normal 6-23 [facility] Comment on above: Performed By: #### 2 4321-2 ####IRVIN MUNGUIA ([id number])[facility] ([facility])[address] [place] [address] 64518 CBC W Auto Differential pane l (Bld)on 03-11-2024 Basophils (Bld) [#/Vol] 0.05 x10*3/uL Normal 0.00-0.10 [facility] Comment on above: Performed By: #### 5 7021-8 ####IRVIN MUNGUIA ([id number])[facility] ([facility])[address] [place] [address] 03716 Basophils/100 WBC (Bld) 0.5 % Normal 0.0-2.0 [facility] Comment on above: Performed By: #### 70-8 ####IRVIN MUNGUIA ([id number])[facility] ([facility])[address] [place] [address] 24900 Eosinophils (Bld) [#/Vol] 0.13 x10*3/uL Normal 0.00-0.70 [facility] Comment on above: Performed By: #### 7021-8 ####IRVIN MUNGUIA ([id number])[facility] ([facility])[address] [place] [address] 55008 Eosinophils/100 WBC (Bld) 1.4 % Normal 0.0-6.0 [facility] Comment on above: Performed By: #### 7021-8 ####IRVIN MUNGUIA ([id number])[facility] ([facility])[address] [place] [address] 45324 Erythrocyte distribution width (RBC) [Ratio] 13.8 % Normal 11.5-14.5 [facility] Comment on above: Performed By: #### 7021-8 ####IRVIN MUNGUIA ([id number])[facility] ([facility])[address] [place] [address] 21485 Hematocrit (Bld) [Volume fraction] 35.9 % Low 36.0-46.0 [facility] Comment on above: Performed By: #### 7021-8 ####IRVIN MUNGUIA ([id number])[facility] ([facility])[address] [place] [address] 12292 Hemoglobin (Bld) [Mass/Vol] 11.0 g/dL Low 12.0-16.0 [facility] Comment on above: Performed By: #### 7021-8 ####IRVIN MUNGUIA ([id number])[facility] ([facility])[address] [place] [address] 67510 Immature granulocytes (Bld) [#/Vol] 0.08 x10*3/uL Normal 0.00-0.70 [facility] Comment on above: Performed By: #### 5 7021-8 ####IRVIN MUNGUIA ([id number])[facility] ([facility])[address] [place] [address] 49474 Immature granulocytes/100 WBC (Bld) 0.9 % Normal 0.0-0.9 [facility] Comment on above: Result Comment: Debbie ture Granulocyte Count (IG) includes promyelocytes, myelocytes and metamyelocytes but does not include bands. Percent differential counts (%) should be interpreted in the context of the absolute cell counts (cells/UL). Performed By: #### 5 7021-8 ####IRVIN MUNGUIA ([id number])[facility] ([facility])[address] [place] [address] 51199 Lymphocytes (Bld) [#/Vol] 2.44 x10*3/uL Normal 1.20-4.80 [facility] Comment on above: Performed By: #### 5 7021-8 ####IRVIN MUNGUIA ([id number])[facility] ([facility])[address] [place] [address] 38266 Lymphocytes/100 WBC (Bld) 26.3 % Normal 13.0-44.0 [facility] Comment on above: Performed By: #### 5 7021-8 ####IRVIN MUNGUIA ([id number])[facility] ([facility])[address] [place] [address] 51083 MCH (RBC) [Entitic mass] 26.9 pg Normal 26.0-34.0 [facility] Comment on above: Performed By: #### 5 7021-8 ####IRVIN MUNGUIA ([id number])[facility] ([facility])[address] [place] [address] 59119 MCHC (RBC) [Mass/Vol] 30.6 g/dL Low 32.0-36.0 [facility] Comment on above: Performed By: #### 5 7021-8 ####IRVIN MUNGUIA ([id number])[facility] ([facility])[address] [place] [address] 87449 MCV (RBC) [Entitic vol] 88 fL Normal 80-100 [facility] Comment on above: Performed By: #### 5 7021-8 ####IRVIN MUNGUIA ([id number])[facility] ([facility])[address] [place] [address] 42327 Monocytes (Bld) [#/Vol] 0.54 x10*3/uL Normal 0.10-1.00 [facility] Comment on above: Performed By: #### 5 7021-8 ####IRVIN MUNGUIA ([id number])[facility] ([facility])[address] [place] [address] 71779 Monocytes/100 WBC (Bld) 5.8 % Normal 2.0-10.0 [facility] Comment on above: Performed By: #### 5 7021-8 ####IRVIN MUNGUIA ([id number])[facility] ([facility])[address] [place] [address] 58127 Neutrophils (Bld) [#/Vol] 6.04 x10*3/uL Normal 1.20-7.70 [facility] Comment on above: Result Comment: Perc ent differential counts (%) should be interpreted in the context of the absolute cell counts (cells/uL). Performed By: #### 5 7021-8 ####IRVIN MUNGUIA ([id number])[facility] ([facility])[address] [place] [address] 77000 Neutrophils/100 WBC (Bld) 65.1 % Normal 40.0-80.0 [facility] Comment on above: Performed By: #### 5 7021-8 ####IRVIN MUNGUIA ([id number])[facility] ([facility])[address] [place] [address] 37140 Nucleated RBC/100 WBC (Bld) [Ratio] 0.0 /100 WBCs Normal 0.0-0.0 [facility] Comment on above: Performed By: #### 5 7021-8 ####IVRIN MUNGUIA ([id number])[facility] ([facility])[address] [place] [address] 08392 Platelets (Bld) [#/Vol] 315 x10*3/uL Normal 150-450 [facility] Comment on above: Performed By: #### 5 7021-8 ####IRVIN MUNGUIA ([id number])[facility] ([facility])[address] [place] [address] RBC (Bld) [#/Vol] 4.09 x10*6/uL Normal 4.00-5.[address] [facility] Comment on above: Performed By: #### 5 7021-8 ####IRVIN MUNGUIA ([id number])[facility] ([facility])[address] [place] [address] WBC (Bld) [#/Vol] 9.3 x10*3/uL Normal 4.4-11.3 [facility] Comment on above: Performed By: #### 5 7021-8 ####IRVIN MUNGUIA ([id number])[facility] ([facility])[address] [place] [address] CT ABDOMEN PELVIS W IV CONTR Reny 03-11-2024 CT ABDOMEN PELVIS W IV CONTRAST Normal [facility] Coagulation surface inducedo n 03-11-2024 aPTT Coag (PPP) [Time] 51 s High 27-38 [facility] Comment on above: Order Comment: The A PTT is no longer used for monitoring Unfractionated Heparin Therapy. For monitoring Heparin Therapy, use the Heparin Assay. Performed By: #### 1 4979-9 ####IRVIN MUNGUIA ([id number])[facility] ([facility])[address] [place] [address] Coagulation tissue factor in ducedon 03-11-2024 PT Coag (PPP) [Time] 50.8 s High 9.8-12.[address] [facility] Comment on above: Performed By: #### 5 902-2 ####IRVIN MUNGUIA ([id number])[facility] ([facility])[address] [place] [address] 78810 Hepatic function 2000 panelo n 03-11-2024 Albumin BCP dye [Mass/Vol] 3.9 g/dL Normal 3.4-5.0 [facility] Comment on above: Performed By: #### 2 4325-3 ####IRVIN MUNGUIA ([id number])[facility] ([facility])[address] [place] [address] 41124 ALP [Catalytic activity/Vol] 152 U/L High 33-110 [facility] Comment on above: Performed By: #### 2 5-3 ####IRVIN MUNGUIA ([id number])[facility] ([facility])[address] [place] [address] 45825 ALT With P-5'-P [Catalytic activity/Vol] 70 U/L High 7-45 [facility] Comment on above: Result Comment: Evelyn ents treated with Sulfasalazine may generate falsely decreased results for ALT. Performed By: #### 2 5-3 ####IRVIN MUNGUIA ([id number])[facility] ([facility])[address] [place] [address] 50744 AST With P-5'-P [Catalytic activity/Vol] 54 U/L High 9-39 [facility] Comment on above: Performed By: #### 2 5-3 ####IRVIN MUNGUIA ([id number])[facility] ([facility])[address] [place] [address] 11193 Bilirubin [Mass/Vol] 0.3 mg/dL Normal 0.0-1.[address] [facility] Comment on above: Performed By: #### 2 5-3 ####IRVIN MUNGUIA ([id number])[facility] ([facility])[address] [place] [address] 20339 Bilirubin.direct [Mass/Vol] 0.1 mg/dL Normal 0.0-0.3 [facility] Comment on above: Performed By: #### 2 5-3 ####IRVIN MUNGUIA ([id number])[facility] ([facility])[address] [place] [address] 59242 Protein [Mass/Vol] 7.4 g/dL Normal 6.4-8.2 [facility] Comment on above: Performed By: #### 2 4325-3 ####IRVIN MUNGUIA ([id number])[facility] ([facility])[address] [place] [address] PT Coag (PPP) [Time]on 03-11 INR Coag (PPP) [Relative time] 4.3 High 0.9-1.1 [facility] Comment on above: Performed By: #### 5 902-2 ####IRVIN MUNGUIA ([id number])[facility] ([facility])[address] [place] [address] 62745 Triacylglycerol lipaseon Lipase [Catalytic activity/Vol] 32 U/L Normal 9-82 [facility] Comment on above: Order Comment: Venip uncture immediately after or during the administration of Metamizole may lead to falsely low results. Testing should be performed immediately prior to Metamizole dosing. Performed By: #### 3 040-3 ####IRVIN MUNGUIA ([id number])[facility] ([facility])[address] [place] [address] 08889 APTTon 03-05-2024 aPTT Coag (PPP) [Time] 49 s High [facility] CBC panel Auto (Bld)on 03-05 Erythrocyte distribution width (RBC) [Ratio] 14.0 % 11.5 - 14.5 % [facility] Hematocrit (Bld) [Volume fraction] 38.9 % 36.0 - 46.0 % [facility] Hemoglobin (Bld) [Mass/Vol] 12.1 g/dL 12.0 - 16.0 g/dL [facility] Interpretation and review of laboratory results Abnormal [facility] MCH (RBC) [Entitic mass] 27.3 pg 26.0 - 34.0 pg [facility] MCHC (RBC) [Mass/Vol] 31.1 g/dL Low 32.0 - 36.0 g/dL [facility] MCV (RBC) [Entitic vol] 88 fL 80 - 100 fL [facility] Nucleated RBC/100 WBC (Bld) [Ratio] 0.0 % [facility] Platelets (Bld) [#/Vol] 310 10*3/uL [facility] RBC (Bld) [#/Vol] 4.43 10*6/uL [facility] WBC (Bld) [#/Vol] 12.2 10*3/uL High [facility] [place] [place] Erythrocyte distribution width (RBC) [Ratio] 14.0 % Normal 11.5-14.5 [facility] Comment on above: Performed By: #### 5 8410-2 ####IRVIN MUNGUIA ([id number])[facility] ([facility])[address] [place] [address] Hematocrit (Bld) [Volume fraction] 38.9 % Normal 36.0-46.0 [facility] Comment on above: Performed By: #### 5 8410-2 ####IRVIN MUNGUIA ([id number])[facility] ([facility])[address] [place], [place] [address] Hemoglobin (Bld) [Mass/Vol] 12.1 g/dL Normal 12.0-16.0 [facility] Comment on above: Performed By: #### 5 8410-2 ####IRVIN MUNGUIA ([id number])[facility] ([facility])[address] [place] [address] 37476 MCH (RBC) [Entitic mass] 27.3 pg Normal 26.0-34.0 [facility] Comment on above: Performed By: #### 5 8410-2 ####IRVIN MUNGUIA ([id number])[facility] ([facility])[address] [place] [address] 66707 MCHC (RBC) [Mass/Vol] 31.1 g/dL Low 32.0-36.0 [facility] Comment on above: Performed By: #### 5 8410-2 ####IRVIN MUNGUIA ([id number])[facility] ([facility])[address] [place] [address] 33040 MCV (RBC) [Entitic vol] 88 fL Normal 80-100 [facility] Comment on above: Performed By: #### 5 8410-2 ####IRVIN MUNGUIA ([id number])[facility] ([facility])[address] [place] [address] 26497 Nucleated RBC/100 WBC (Bld) [Ratio] 0.0 /100 WBCs Normal 0.0-0.0 [facility] Comment on above: Performed By: #### 5 8410-2 ####IRVIN MUNGUIA ([id number])[facility] ([facility])[address] [place] [address] 02540 Platelets (Bld) [#/Vol] 310 x10*3/uL Normal 150-450 [facility] Comment on above: Performed By: #### 5 8410-2 ####IRVIN MUNGUIA ([id number])[facility] ([facility])[address] [place] [address] 57266 RBC (Bld) [#/Vol] 4.43 x10*6/uL Normal 4.00-5.[address] [facility] Comment on above: Performed By: #### 5 8410-2 ####IRVIN MUNGUIA ([id number])[facility] ([facility])[address] [place] [address] 31697 WBC (Bld) [#/Vol] 12.2 x10*3/uL High 4.4-11.[address] [facility] Comment on above: Performed By: #### 5 8410-2 ####IRVIN MUNGUIA ([id number])[facility] ([facility])[address] [place] [address] 64006 Coagulation surface inducedo n 03-05-2024 aPTT Coag (PPP) [Time] 49 s High 27-38 [facility] Comment on above: Order Comment: The A PTT is no longer used for monitoring Unfractionated Heparin Therapy. For monitoring Heparin Therapy, use the Heparin Assay. Performed By: #### 1 4979-9 ####IRVIN MUNGUIA ([id number])[facility] ([facility])[address] [place] [address] 66586 Coagulation tissue factor in ducedon 03-05-2024 PT Coag (PPP) [Time] 45.6 s High 9.8-12.[address] [facility] Comment on above: Performed By: #### 5 902-2 ####BRYAN EZRA ([id number])[facility] ([facility])[address] [place] [address] Comprehensive metabolic 2000 panelon 03-05-2024 Albumin BCP dye [Mass/Vol] 4.0 g/dL 3.4 - 5.0 g/dL [facility] ALP [Catalytic activity/Vol] 187 U/L High 33 - 110 U/L [facility] ALT With P-5'-P [Catalytic activity/Vol] 39 U/L 7 - 45 U/L [facility] Comment on above: Patients treated wit h Sulfasalazine may generate falsely decreased results for ALT. Anion gap [Moles/Vol] 16 mmol/L 10 - 2 0 mmol/L [facility] AST With P-5'-P [Catalytic activity/Vol] 41 U/L High 9 - 39 U/L [facility] Bilirubin [Mass/Vol] 0.2 mg/dL 0.0 - 1 .2 mg/dL [facility] Calcium [Mass/Vol] 8.8 mg/dL 8.6 - 10. 3 mg/dL [facility] Chloride [Moles/Vol] 99 mmol/L 98 - 10 7 mmol/L [facility] CO2 [Moles/Vol] 24 mmol/L 21 - 32 mmol/L [facility] Creatinine [Mass/Vol] 0.72 mg/dL 0.50 - 1.05 mg/dL [facility] eGFR - PINF [facility] Comment on above: Calculations of estuardo mated GFR are performed using the 2020 CKD-EPI Study Refit equation without the race variable for the IDMS-Traceable creatinine methods. https://jasn.asnjournals.org/content/early/ASN.904590 0783 Glucose [Mass/Vol] 215 mg/dL High 74 - 99 mg/dL [facility] Interpretation and review of laboratory results Abnormal [facility] Potassium [Moles/Vol] 4.3 mmol/L 3.5 - 5.3 mmol/L [facility] Protein [Mass/Vol] 7.8 g/dL 6.4 - 8.2 g/dL [facility] Sodium [Moles/Vol] 135 mmol/L Low 136 - 145 mmol/L [facility] Urea nitrogen [Mass/Vol] 12 mg/dL 6 - 23 mg/dL [facility] Albumin BCP dye [Mass/Vol] 4.0 g/dL Normal 3.4-5.0 [facility] Comment on above: Performed By: #### 2 4323-8 ####IRVIN MUNGUIA ([id number])[facility] ([facility])[address] [place] [address] 71524 ALP [Catalytic activity/Vol] 187 U/L High 33-110 [facility] Comment on above: Performed By: #### 2 4323-8 ####IRVIN MUNGUIA ([id number])[facility] ([facility])[address] [place] [address] 70295 ALT With P-5'-P [Catalytic activity/Vol] 39 U/L Normal 7-45 [facility] Comment on above: Result Comment: Evelyn ents treated with Sulfasalazine may generate falsely decreased results for ALT. Performed By: #### 2 4323-8 ####IRVIN MUNGUIA ([id number])[facility] ([facility])[address] [place] [address] 17212 Anion gap [Moles/Vol] 16 mmol/L Normal 10-20 [facility] Comment on above: Performed By: #### 2 4323-8 ####IRVIN MUNGUIA ([id number])[facility] ([facility])[address] [place] [address] 20070 AST With P-5'-P [Catalytic activity/Vol] 41 U/L High 9-39 [facility] Comment on above: Performed By: #### 2 4323-8 ####IRVIN MUNGUIA ([id number])[facility] ([facility])[address] [place] [address] 13563 Bilirubin [Mass/Vol] 0.2 mg/dL Normal 0.0-1.[address] [facility] Comment on above: Performed By: #### 2 4323-8 ####IRVIN MUNGUIA ([id number])[facility] ([facility])[address] [place] [address] 06777 Calcium [Mass/Vol] 8.8 mg/dL Normal 8.6-10.3 [facility] Comment on above: Performed By: #### 2 4323-8 ####IRVIN MUNGUIA ([id number])[facility] ([facility])[address] [place] [address] 03893 Chloride [Moles/Vol] 99 mmol/L Normal 98-[address] [facility] Comment on above: Performed By: #### 2 4323-8 ####IRVIN MUNGUIA ([id number])[facility] ([facility])[address] [place] [address] 36299 CO2 [Moles/Vol] 24 mmol/L Normal 21-32 [facility] Comment on above: Performed By: #### 2 4323-8 ####IRVIN MUNGUIA ([id number])[facility] ([facility])[address] [place] [address] 21142 Creatinine [Mass/Vol] 0.72 mg/dL Normal 0.50-1.05 [facility] Comment on above: Performed By: #### 2 4323-8 ####IRVIN MUNGUIA ([id number])[facility] ([facility])[address] [place] [address] 67510 GFR/1.73 sq M.predicted MDRD (S/P/Bld) [Vol rate/Area] mL/min/{1.73_m2} Normal >60 [facility] Comment on above: Result Comment: Calc ulations of estimated GFR are performed using the 2020 CKD-EPI Study Refit equation without the race variable for the IDMS-Traceable creatinine methods.https://jasn.asnjournals.org/content// N.7672311070 Performed By: #### 2 4323-8 ####IRVIN MUNGUIA ([id number])[facility] ([facility])[address] [place] [address] 07344 Glucose [Mass/Vol] 215 mg/dL High 74-99 [facility] Comment on above: Performed By: #### 2 4323-8 ####IRVIN MUNGUIA ([id number])[facility] ([facility])[address] [place] [address] 79707 Potassium [Moles/Vol] 4.3 mmol/L Normal 3.5-5.3 [facility] Comment on above: Performed By: #### 2 4323-8 ####IRVIN MUNGUIA ([id number])[facility] ([facility])[address] [place] [address] 48347 Protein [Mass/Vol] 7.8 g/dL Normal 6.4-8.2 [facility] Comment on above: Performed By: #### 2 4323-8 ####IRVIN MUNGUIA ([id number])[facility] ([facility])[address] [place] [address] 14020 Sodium [Moles/Vol] 135 mmol/L Low 136-145 [facility] Comment on above: Performed By: #### 2 4323-8 ####IRVIN MUNGUIA ([id number])[facility] ([facility])[address] [place] [address] 92248 Urea nitrogen [Mass/Vol] 12 mg/dL Normal 6-23 [facility] Comment on above: Performed By: #### 2 4323-8 ####IRVIN MUNGUIA ([id number])[facility] ([facility])[address] [place] [address] 03599 ECG 12-LEADon 03-05-2024 ECG 12-LEAD Ventricular Rate 115 Atrial Rate 115 P-R Interval 136 QRS Duration 80 Q-T Interval 328 QTC Calculation(Bazett) 453 P [place] 42 R [place] 42 T [place] 48 QRS Count 19 Q Onset 222 P Onset 154 P Offset 207 T Offset 386 QTC Fredericia 407 Diagnosis Sinus tachycardia Otherwise normal ECG When compared with ECG of 28-FEB-2024 08:09, No significant change was found See ED provider note for full interpretation and clinical correlation Confirmed by Hermelinda Beltran ([id number]) on 03/08/2024 6:50:38 PM Normal [facility] Lipaseon 03-05-2024 Lipase [Catalytic activity/Vol] 23 U/L 9 - 82 U/L [facility] Lipase [Catalytic activity/V ol]on 03-05-2024 Interpretation and review of laboratory results Normal [facility] Venipuncture immediately after or during the administration of Metamizole may lead to falsely low results. Testing should be performed immediately prior to Metamizole dosing. [facility] No Panel Informationon 03-05 Interpretation and review of laboratory results Abnormal [facility] PT Coag (PPP) [Time]on 03-05 INR Coag (PPP) [Relative time] 3.9 {INR} High 0.9 - 1.1 [facility] INR Coag (PPP) [Relative time] 3.9 High 0.9-1.1 [facility] Comment on above: Performed By: #### 5 902-2 ####IRVIN MUNGUIA ([id number])[facility] ([facility])[address] [place] [address] Protime-INRon 03-05-2024 PT Coag (PPP) [Time] 45.6 s High [facility] Triacylglycerol lipaseon Lipase [Catalytic activity/Vol] 23 U/L Normal -82 [facility] Comment on above: Order Comment: Venip uncture immediately after or during the administration of Metamizole may lead to falsely low results. Testing should be performed immediately prior to Metamizole dosing. Performed By: #### 3 040-3 ####IRVIN MUNGUIA ([id number])[facility] ([facility])[address] [place] [address] aPTT Coag (PPP) [Time]on The APTT is no longe r used for monitoring Unfractionated Heparin Therapy. For monitoring Heparin Therapy, use the Heparin Assay. [facility] Basic metabolic 2000 panelon 03-02-2024 Anion gap [Moles/Vol] 14 mmol/L 10 - 2 0 mmol/L [facility] Calcium [Mass/Vol] 8.8 mg/dL 8.6 - 10. 3 mg/dL [facility] Chloride [Moles/Vol] 101 mmol/L 98 - 10 7 mmol/L [facility] CO2 [Moles/Vol] 24 mmol/L 21 - 32 mmol/L [facility] Creatinine [Mass/Vol] 0.65 mg/dL 0.50 - 1.05 mg/dL [facility] eGFR - PINF [facility] Comment on above: Calculations of estuardo mated GFR are performed using the 2020 CKD-EPI Study Refit equation without the race variable for the IDMS-Traceable creatinine methods. https://jasn.asnjournals.org/content/early//ASN.066656 8588 Glucose [Mass/Vol] 158 mg/dL High 74 - 99 mg/dL [facility] Interpretation and review of laboratory results Abnormal [facility] Potassium [Moles/Vol] 3.8 mmol/L 3.5 - 5.3 mmol/L [facility] Sodium [Moles/Vol] 135 mmol/L Low 136 - 145 mmol/L [facility] Urea nitrogen [Mass/Vol] 9 mg/dL 6 - 23 mg/dL [facility] Anion gap [Moles/Vol] 14 mmol/L Normal 10-20 [facility] Comment on above: Performed By: #### 2 4321-2 ####IRVIN MUNGUIA ([id number])[facility] ([facility])[address] [place] [address] 79179 Calcium [Mass/Vol] 8.8 mg/dL Normal 8.6-10.3 [facility] Comment on above: Performed By: #### 2 4321-2 ####IRVIN MUNGUIA ([id number])[facility] ([facility])[address] [place] [address] 29621 Chloride [Moles/Vol] 101 mmol/L Normal 98-[address] [facility] Comment on above: Performed By: #### 2 4321-2 ####IRVIN MUNGUIA ([id number])[facility] ([facility] [place] [address] CO2 [Moles/Vol] 24 mmol/L Normal 21-32 [facility] Comment on above: Performed By: #### 2 4321-2 ####IRVIN MUNGUIA ([id number])[facility] ([facility])[address] [place] [address] 47439 Creatinine [Mass/Vol] 0.65 mg/dL Normal 0.50-1.05 [facility] Comment on above: Performed By: #### 2 4321-2 ####IRVIN MUNGUIA ([id number])[facility] ([facility])[address] [place] [address] 95645 GFR/1.73 sq M.predicted MDRD (S/P/Bld) [Vol rate/Area] mL/min/{1.73_m2} Normal >60 [facility] Comment on above: Result Comment: Calc ulations of estimated GFR are performed using the 2020 CKD-EPI Study Refit equation without the race variable for the IDMS-Traceable creatinine methods.https://jasn.asnjournals.org/content// N.1837028252 Performed By: #### 2 4321-2 ####IRVIN MUNGUIA ([id number])[facility] ([facility])[address] [place] [address] 50771 Glucose [Mass/Vol] 158 mg/dL High 74-99 [facility] Comment on above: Performed By: #### 2 1-2 ####IRVIN MUNGUIA ([id number])[facility] ([facility])[address] [place] [address] 92781 Potassium [Moles/Vol] 3.8 mmol/L Normal 3.5-5.3 [facility] Comment on above: Performed By: #### 2 4321-2 ####IRVIN MUNGUIA ([id number])[facility] ([facility])[address] [place] [address] 06351 Sodium [Moles/Vol] 135 mmol/L Low 136-145 [facility] Comment on above: Performed By: #### 2 4321-2 ####IRVIN MUNGUIA ([id number])[facility] ([facility])[address] [place] [address] Urea nitrogen [Mass/Vol] 9 mg/dL Normal 6-23 [facility] Comment on above: Performed By: #### 2 4321-2 ####IRVIN MUNGUIA ([id number])[facility] ([facility])[address] [place] [address] CBC panel Auto (Bld)on 03-02 Erythrocyte distribution width (RBC) [Ratio] 14.0 % 11.5 - 14.5 % [facility] Hematocrit (Bld) [Volume fraction] 34.3 % Low 36.0 - 46.0 % [facility] Hemoglobin (Bld) [Mass/Vol] 10.6 g/dL Low 12.0 - 16.0 g/dL [facility] Interpretation and review of laboratory results Abnormal [facility] MCH (RBC) [Entitic mass] 27.5 pg 26.0 - 34.0 pg [facility] MCHC (RBC) [Mass/Vol] 30.9 g/dL Low 32.0 - 36.0 g/dL [facility] MCV (RBC) [Entitic vol] 89 fL 80 - 100 fL [facility] Nucleated RBC/100 WBC (Bld) [Ratio] 0.0 % [facility] Platelets (Bld) [#/Vol] 290 10*3/uL [facility] RBC (Bld) [#/Vol] 3.86 10*6/uL Low [facility] WBC (Bld) [#/Vol] 7.6 10*3/uL [facility] Erythrocyte distribution width (RBC) [Ratio] 14.0 % Normal 11.5-14.5 [facility] Comment on above: Performed By: #### 5 8410-2 ####IRVIN MUNGUIA ([id number])[facility] ([facility])[address] [place] [address] Hematocrit (Bld) [Volume fraction] 34.3 % Low 36.0-46.0 [facility] Comment on above: Performed By: #### 5 8410-2 ####IRVIN MUNGUIA ([id number])[facility] ([facility])[address] [place] [id number] Hemoglobin (Bld) [Mass/Vol] 10.6 g/dL Low 12.0-16.0 [facility] Comment on above: Performed By: #### 5 8410-2 ####IRVIN MUNGUIA ([id number])[facility] ([facility])[address] [place] [id number] MCH (RBC) [Entitic mass] 27.5 pg Normal 26.0-34.0 [facility] Comment on above: Performed By: #### 5 8410-2 ####IRVIN MUNGUIA ([id number])[facility] ([facility])[address] [place] [address] 50634 MCHC (RBC) [Mass/Vol] 30.9 g/dL Low 32.0-36.0 [facility] Comment on above: Performed By: #### 5 8410-2 ####IRVIN MUNGUIA ([id number])[facility] ([facility])[address] [place] [address] 37837 MCV (RBC) [Entitic vol] 89 fL Normal 80-100 [facility] Comment on above: Performed By: #### 5 8410-2 ####IRVIN MUNGUIA ([id number])[facility] ([facility])[address] [place] [address] 31118 Nucleated RBC/100 WBC (Bld) [Ratio] 0.0 /100 WBCs Normal 0.0-0.0 [facility] Comment on above: Performed By: #### 5 8410-2 ####IRVIN MUNGUIA ([id number])[facility] ([facility])[address] [place] [address] 46683 Platelets (Bld) [#/Vol] 290 x10*3/uL Normal 150-450 [facility] Comment on above: Performed By: #### 5 8410-2 ####IRVIN MUNGUIA ([id number])[facility] ([facility])[address] [place] [address] RBC (Bld) [#/Vol] 3.86 x10*6/uL Low 4.00-5.[address] [facility] Comment on above: Performed By: #### 5 8410-2 ####IRVIN MUNGUIA ([id number])[facility] ([facility])[address] [place] [address] WBC (Bld) [#/Vol] 7.6 x10*3/uL Normal 4.4-11.3 [facility] Comment on above: Performed By: #### 5 8410-2 ####IRVIN MUNGUIA ([id number])[facility] ([facility])[address] [place] [address] Coagulation tissue factor in ducedon 03-02-2024 PT Coag (PPP) [Time] 37.3 s High 9.8-12.[address] [facility] Comment on above: Performed By: #### 5 902-2 ####IRVIN MUNGUIA ([id number])[facility] ([facility])[address] [place], [place] [address] Glucose Test strip manual (B ld) [Mass/Vol]on 03-02-2024 Glucose [Mass/Vol] 204 mg/dL High 74 - 99 mg/dL [facility] Interpretation and review of laboratory results Abnormal [facility] Glucose [Mass/Vol] 204 mg/dL High 74-99 [facility] Comment on above: Performed By: #### 2 341-6 ####IRVIN MUNGUIA ([id number])[facility] ([facility])[address] [place], [place] [address] Glucose [Mass/Vol] 169 mg/dL High 74 - 99 mg/dL [facility] Interpretation and review of laboratory results Abnormal [facility] Glucose [Mass/Vol] 169 mg/dL High 74-99 [facility] Comment on above: Performed By: #### 2 341-6 ####IRVIN EZRA ([id number])[facility] ([facility])[address] [place] [address] Glucose [Mass/Vol] 162 mg/dL High 74 - 99 mg/dL [facility] Interpretation and review of laboratory results Abnormal [facility] Glucose [Mass/Vol] 162 mg/dL High 74-99 [facility] Comment on above: Performed By: #### 2 341-6 ####IRVIN MUNGUIA ([id number])[facility] ([facility])[address] [place] [address] Heparin Assayon 03-02-2024 Heparin unfractionated Chromogenic method Qn (PPP) 0.4 See Comment Below for Therapeutic Ranges IU/mL [facility] Heparin unfractionated Chrom ogenic method Qn (PPP)on 03-02-2024 Interpretation and review of laboratory results Normal [facility] The therapeutic reference range for UFH may be either 0.3-0.6 IU/mL or 0.3-0.7 IU/mL based on the clinical setting for anticoagulant therapy and the associated nomogram used. For Heparin dosing guidelines based on clinical scenario and Heparin Assay results, please refer to local Pharmacy and the [facility] Guidelines for Anticoagulation Therapy available on the [facility] intranet at: [email or web address] [email or web address]/Pharmacy/P [email or web address] ls_Guidelines_for_Antic oagu.aspx [facility] Heparin.unfractionatedon Heparin unfractionated Chromogenic method Qn (PPP) 0.4 IU/mL Normal See Comment Below for Therapeutic Ranges [facility] Comment on above: Order Comment: The t herapeutic reference range for UFH may be either 0.3-0.6 IU/mL or 0.3-0.7 IU/mL based on the clinical setting for anticoagulant therapy and the associated nomogram used. For Heparin dosing guidelines based on clinical scenario and Heparin Assay results, please refer to local Pharmacy and the [facility] Guidelines for Anticoagulation Therapy available on the [facility] intranet at: [email or web address]/[email or web address]_Guidelines_for_Anticoagu.aspx Performed By: #### 3 274-8 ####IRVIN MUNGUIA ([id number])[facility] ([facility])[address] [place] [address] 85013 No Panel Informationon 03-02 [facility] PT Coag (PPP) [Time]on 03-02 INR Coag (PPP) [Relative time] 3.2 {INR} High 0.9 - 1.1 [facility] Interpretation and review of laboratory results Abnormal [facility] INR Coag (PPP) [Relative time] 3.2 High 0.9-1.1 [facility] Comment on above: Performed By: #### 5 902-2 ####IRVIN MUNGUIA ([id number])[facility] ([facility])[address] [place] [address] 83929 Protime-INRon 03-02-2024 PT Coag (PPP) [Time] 37.3 s High [facility] XR Abdomen Single viewon Nonobstructive bowel gas pattern. MACRO: None Signed by: Ulises Dowd 03/02/2024 11:33 AM Dictation workstation: [id number] MOHINI LIANGODAL Interpreted By: Ulises Dowd, STUDY: XR ABDOMEN 1 VIEW; 03/01/2024 10:43 pm INDICATION: Signs/Symptoms:pain. COMPARISON: 01/28/2024 ACCESSION NUMBER(S): [id number] ORDERING CLINICIAN: CHACHO RIBEIRO FINDINGS: 2 supine AP radiographs of the abdomen were obtained. There is a nonobstructive bowel gas pattern present. Free intraperitoneal air and air-fluid levels cannot be excluded without upright or decubitus images. MMODAL Ulises Dowd MD - 03/02/2024 Interpreted By: Ulises Dowd, STUDY: XR ABDOMEN 1 VIEW; 03/01/2024 10:43 pm INDICATION: Signs/Symptoms:pain. COMPARISON: 01/28/2024 ACCESSION NUMBER(S): [id number] ORDERING CLINICIAN: CHACHO GEMA FINDINGS: 2 supine AP radiographs of the abdomen were obtained. There is a nonobstructive bowel gas pattern present. Free intraperitoneal air and air-fluid levels cannot be excluded without upright or decubitus images. IMPRESSION: Nonobstructive bowel gas pattern. MACRO: None Signed by: Ulises Dowd 03/02/2024 11:33 AM Dictation workstation: [id number] [facility] Work Phone: XR Abdomen Single viewOrdere d By: Ulises Dowd on 03-02-2024 [facility] Work Phone: Basic metabolic 2000 panelon 03-01-2024 Anion gap [Moles/Vol] 14 mmol/L 10 - 2 0 mmol/L [facility] Calcium [Mass/Vol] 9.0 mg/dL 8.6 - 10. 3 mg/dL [facility] Chloride [Moles/Vol] 100 mmol/L 98 - 10 7 mmol/L [facility] CO2 [Moles/Vol] 25 mmol/L 21 - 32 mmol/L [facility] Creatinine [Mass/Vol] 0.64 mg/dL 0.50 - 1.05 mg/dL [facility] eGFR - PINF [facility] Comment on above: Calculations of estuardo mated GFR are performed using the 2020 CKD-EPI Study Refit equation without the race variable for the IDMS-Traceable creatinine methods. https://jasn.asnjournals.org/content//ASN.989076 4851 Glucose [Mass/Vol] 136 mg/dL High 74 - 99 mg/dL [facility] Interpretation and review of laboratory results Abnormal [facility] Potassium [Moles/Vol] 3.8 mmol/L 3.5 - 5.3 mmol/L [facility] Comment on above: MILD HEMOLYSIS DETEC DEYANIRA. The result may be falsely elevated due to hemolysis or other interferents. Clinical correlation is recommended. Repeat testing may be considered. Sodium [Moles/Vol] 135 mmol/L Low 136 - 145 mmol/L [facility] Urea nitrogen [Mass/Vol] 8 mg/dL 6 - 23 mg/dL [facility] Anion gap [Moles/Vol] 14 mmol/L Normal 10-20 [facility] Comment on above: Performed By: #### 2 4321-2 ####IRVIN MUNGUIA ([id number])[facility] ([facility])[address] [place] [address] 35220 Calcium [Mass/Vol] 9.0 mg/dL Normal 8.6-10.3 [facility] Comment on above: Performed By: #### 2 4321-2 ####IRVIN MUNGUIA ([id number])[facility] ([facility])[address] [place] [address] 38085 Chloride [Moles/Vol] 100 mmol/L Normal 98-[address] [facility] Comment on above: Performed By: #### 2 4321-2 ####IRVIN MUNGUIA ([id number])[facility] ([facility])[address] [place] [address] 29589 CO2 [Moles/Vol] 25 mmol/L Normal 21-32 [facility] Comment on above: Performed By: #### 2 4321-2 ####IRVIN MUNGUIA ([id number])[facility] ([facility])[address] [place] [address] 37732 Creatinine [Mass/Vol] 0.64 mg/dL Normal 0.50-1.05 [facility] Comment on above: Performed By: #### 2 4321-2 ####IRVIN MUNGUIA ([id number])[facility] ([facility])[address] [place] [address] 76036 GFR/1.73 sq M.predicted MDRD (S/P/Bld) [Vol rate/Area] mL/min/{1.73_m2} Normal >60 [facility] Comment on above: Result Comment: Calc ulations of estimated GFR are performed using the 2020 CKD-EPI Study Refit equation without the race variable for the IDMS-Traceable creatinine methods.https://jasn.asnjournals.org/content/early/ N.6815168049 Performed By: #### 2 4321-2 ####IRVIN MUNGUIA ([id number])[facility] ([facility])[address] [place] [address] 09696 Glucose [Mass/Vol] 136 mg/dL High 74-99 [facility] Comment on above: Performed By: #### 2 4321-2 ####IRVIN MUNGUIA ([id number])[facility] ([facility])[address] [place] [address] 31514 Potassium [Moles/Vol] 3.8 mmol/L Normal 3.5-5.3 [facility] Comment on above: Result Comment: MILD HEMOLYSIS DETECTED. The result may be falsely elevated due to hemolysis or other interferents. Clinical correlation is recommended. Repeat testing may be considered. Performed By: #### 2 4321-2 ####IRVIN MUNGUIA ([id number])[facility] ([facility])[address] [place] [address] 17918 Sodium [Moles/Vol] 135 mmol/L Low 136-145 [facility] Comment on above: Performed By: #### 2 4321-2 ####IRVIN MUNGUIA ([id number])[facility] ([facility])[address] [place] [address] 68136 Urea nitrogen [Mass/Vol] 8 mg/dL Normal 6-23 [facility] Comment on above: Performed By: #### 2 4321-2 ####IRVIN MUNGUIA ([id number])[facility] ([facility])[address] [place] [address] 33874 CBC panel Auto (Bld)on 03-01 Erythrocyte distribution width (RBC) [Ratio] 14.0 % 11.5 - 14.5 % [facility] Hematocrit (Bld) [Volume fraction] 35.6 % Low 36.0 - 46.0 % [facility] Hemoglobin (Bld) [Mass/Vol] 10.8 g/dL Low 12.0 - 16.0 g/dL [facility] Interpretation and review of laboratory results Abnormal [facility] MCH (RBC) [Entitic mass] 26.9 pg 26.0 - 34.0 pg [facility] MCHC (RBC) [Mass/Vol] 30.3 g/dL Low 32.0 - 36.0 g/dL [facility] MCV (RBC) [Entitic vol] 89 fL 80 - 100 fL [facility] Nucleated RBC/100 WBC (Bld) [Ratio] 0.0 % [facility] Platelets (Bld) [#/Vol] 339 10*3/uL [facility] RBC (Bld) [#/Vol] 4.01 10*6/uL [facility] WBC (Bld) [#/Vol] 5.6 10*3/uL [facility] Erythrocyte distribution width (RBC) [Ratio] 14.0 % Normal 11.5-14.5 [facility] Comment on above: Performed By: #### 5 8410-2 ####IRVIN MUNGUIA ([id number])[facility] ([facility])[address] [place] [address] 75969 Hematocrit (Bld) [Volume fraction] 35.6 % Low 36.0-46.0 [facility] Comment on above: Performed By: #### 5 8410-2 ####IRVIN MUNGUIA ([id number])[facility] ([facility])[address] [place] [address] 58075 Hemoglobin (Bld) [Mass/Vol] 10.8 g/dL Low 12.0-16.0 [facility] Comment on above: Performed By: #### 5 8410-2 ####IRVIN MUNGUIA ([id number])[facility] ([facility])[address] [place] [address] 71079 MCH (RBC) [Entitic mass] 26.9 pg Normal 26.0-34.0 [facility] Comment on above: Performed By: #### 5 8410-2 ####IRVIN MUNGUIA ([id number])[facility] ([facility])[address] [place] [address] 02811 MCHC (RBC) [Mass/Vol] 30.3 g/dL Low 32.0-36.0 [facility] Comment on above: Performed By: #### 5 8410-2 ####IRVIN MUNGUIA ([id number])[facility] ([facility])[address] [place] [address] 68714 MCV (RBC) [Entitic vol] 89 fL Normal 80-100 [facility] Comment on above: Performed By: #### 5 8410-2 ####IRVIN MUNGUIA ([id number])[facility] ([facility])[address] [place] [address] 00100 Nucleated RBC/100 WBC (Bld) [Ratio] 0.0 /100 WBCs Normal 0.0-0.0 [facility] Comment on above: Performed By: #### 5 8410-2 ####IRVIN MUNGUIA (10491)[facility] ([facility])[address] [place] [address] 27257 Platelets (Bld) [#/Vol] 339 x10*3/uL Normal 150-450 [facility] Comment on above: Performed By: #### 5 8410-2 ####IRVIN MUNGUIA ([id number])[facility] ([facility])[address] [place] [address] 59860 RBC (Bld) [#/Vol] 4.01 x10*6/uL Normal 4.00-5.[address] [facility] Comment on above: Performed By: #### 5 8410-2 ####IRVIN MUNGUIA ([id number])[facility] ([facility])[address] [place] [address] 51745 WBC (Bld) [#/Vol] 5.6 x10*3/uL Normal 4.4-11.3 [facility] Comment on above: Performed By: #### 5 8410-2 ####IRVIN MUNGUIA ([id number])[facility] ([facility])[address] [place] [address] 19601 Erythrocyte distribution width (RBC) [Ratio] 14.2 % 11.5 - 14.5 % [facility] Hematocrit (Bld) [Volume fraction] 34.9 % Low 36.0 - 46.0 % [facility] Hemoglobin (Bld) [Mass/Vol] 10.7 g/dL Low 12.0 - 16.0 g/dL [facility] Interpretation and review of laboratory results Abnormal [facility] MCH (RBC) [Entitic mass] 27.6 pg 26.0 - 34.0 pg [facility] MCHC (RBC) [Mass/Vol] 30.7 g/dL Low 32.0 - 36.0 g/dL [facility] MCV (RBC) [Entitic vol] 90 fL 80 - 100 fL [facility] Nucleated RBC/100 WBC (Bld) [Ratio] 0.0 % [facility] Platelets (Bld) [#/Vol] 321 10*3/uL [facility] RBC (Bld) [#/Vol] 3.87 10*6/uL Low [facility] WBC (Bld) [#/Vol] 6.0 10*3/uL [facility] Erythrocyte distribution width (RBC) [Ratio] 14.2 % Normal 11.5-14.5 [facility] Comment on above: Performed By: #### 5 8410-2 ####IRVIN MUNGUIA ([id number])[facility] ([facility])[address] [place] [address] 63442 Hematocrit (Bld) [Volume fraction] 34.9 % Low 36.0-46.0 [facility] Comment on above: Performed By: #### 5 8410-2 ####IRVIN MUNGUIA ([id number])[facility] ([facility])[address] [place] [address] 46228 Hemoglobin (Bld) [Mass/Vol] 10.7 g/dL Low 12.0-16.0 [facility] Comment on above: Performed By: #### 5 8410-2 ####IRVIN MUNGUIA ([id number])[facility] ([facility])[address] [place] [address] 16069 MCH (RBC) [Entitic mass] 27.6 pg Normal 26.0-34.0 [facility] Comment on above: Performed By: #### 5 8410-2 ####IRVIN MUNGUIA ([id number])[facility] ([facility])[address] [place] [address] 28446 MCHC (RBC) [Mass/Vol] 30.7 g/dL Low 32.0-36.0 [facility] Comment on above: Performed By: #### 5 8410-2 ####IRVIN MUNGUIA ([id number])[facility] ([facility])[address] [place] [address] 11346 MCV (RBC) [Entitic vol] 90 fL Normal 80-100 [facility] Comment on above: Performed By: #### 5 8410-2 ####IRVIN MUNGUIA ([id number])[facility] ([facility])[address] [place], [place] [address] Nucleated RBC/100 WBC (Bld) [Ratio] 0.0 /100 WBCs Normal 0.0-0.0 [facility] Comment on above: Performed By: #### 5 8410-2 ####IRVIN MUNGUIA ([id number])[facility] ([facility])[address] [place] [address] 79899 Platelets (Bld) [#/Vol] 321 x10*3/uL Normal 150-450 [facility] Comment on above: Performed By: #### 5 8410-2 ####IRVIN MUNGUIA ([id number])[facility] ([facility])[address] [place] [address] 80260 RBC (Bld) [#/Vol] 3.87 x10*6/uL Low 4.00-5.[address] [facility] Comment on above: Performed By: #### 5 8410-2 ####IRVIN MUNGUIA ([id number])[facility] ([facility])[address] [place] [address] 93304 WBC (Bld) [#/Vol] 6.0 x10*3/uL Normal 4.4-11.3 [facility] Comment on above: Performed By: #### 5 8410-2 ####IRVIN MUNGUIA ([id number])[facility] ([facility])[address] [place] [address] 79652 Coagulation tissue factor in ducedon 03-01-2024 PT Coag (PPP) [Time] 14.9 s High 9.8-12.[address] [facility] Comment on above: Performed By: #### 5 902-2 ####IRVIN MUNGUIA ([id number])[facility] ([facility])[address] [place] [address] 43721 Glucose Test strip manual (B ld) [Mass/Vol]on 03-01-2024 Glucose [Mass/Vol] 185 mg/dL High 74 - 99 mg/dL [facility] Interpretation and review of laboratory results Abnormal [facility] Glucose [Mass/Vol] 185 mg/dL High 74-99 [facility] Comment on above: Performed By: #### 2 341-6 ####IRVIN MUNGUIA ([id number])[facility] ([facility])[address] [place] [address] 94164 Glucose [Mass/Vol] 179 mg/dL High 74 - 99 mg/dL [facility] Interpretation and review of laboratory results Abnormal [facility] Glucose [Mass/Vol] 179 mg/dL High 74-99 [facility] Comment on above: Performed By: #### 2 341-6 ####IRVIN MUNGUIA ([id number])[facility] ([facility])[address] [place] [address] 73897 Glucose [Mass/Vol] 169 mg/dL High 74 - 99 mg/dL [facility] Interpretation and review of laboratory results Abnormal [facility] Glucose [Mass/Vol] 169 mg/dL High 74-99 [facility] Comment on above: Performed By: #### 2 341-6 ####IRVIN MUNGUIA ([id number])[facility] ([facility])[address] [place] [address] 77081 Glucose [Mass/Vol] 134 mg/dL High 74 - 99 mg/dL [facility] Interpretation and review of laboratory results Abnormal [facility] Glucose [Mass/Vol] 134 mg/dL High 74-99 [facility] Comment on above: Performed By: #### 2 341-6 ####BRYAN EZRA ([id number])[facility] ([facility])[address] [place] [address] Heparin Assayon 03-01-2024 Heparin unfractionated Chromogenic method Qn (PPP) 0.3 See Comment Below for Therapeutic Ranges IU/mL [facility] Heparin unfractionated Chromogenic method Qn (PPP) 0.4 See Comment Below for Therapeutic Ranges IU/mL [facility] Heparin unfractionated Chrom ogenic method Qn (PPP)on 03-01-2024 Interpretation and review of laboratory results Normal [facility] The therapeutic reference range for UFH may be either 0.3-0.6 IU/mL or 0.3-0.7 IU/mL based on the clinical setting for anticoagulant therapy and the associated nomogram used. For Heparin dosing guidelines based on clinical scenario and Heparin Assay results, please refer to local Pharmacy and [facility] Guidelines for Anticoagulation Therapy available on the [facility] intranet at: [email or web address]/P [email or web address] ls_Guidelines_for_Antic oagu.aspx [facility] Interpretation and review of laboratory results Normal [facility] The therapeutic reference range for UFH may be either 0.3-0.6 IU/mL or 0.3-0.7 IU/mL based on the clinical setting for anticoagulant therapy and the associated nomogram used. For Heparin dosing guidelines based on clinical scenario and Heparin Assay results, please refer to local Pharmacy and the [facility] Guidelines for Anticoagulation Therapy available on the [facility] intranet at: [email or web address] [email or web address] ls_Guidelines_for_Antic oagu.aspx [facility] Heparin.unfractionatedon Heparin unfractionated Chromogenic method Qn (PPP) 0.3 IU/mL Normal See Comment Below for Therapeutic Ranges [facility] Comment on above: Order Comment: The t herapeutic reference range for UFH may be either 0.3-0.6 IU/mL or 0.3-0.7 IU/mL based on the clinical setting for anticoagulant therapy and the associated nomogram used. For Heparin dosing guidelines based on clinical scenario and Heparin Assay results, please refer to local Pharmacy and the [facility] Guidelines for Anticoagulation Therapy available on the [facility] intranet at: [email or web address] [facility]_Guidelines_for_[email or web address].[email or web address] Performed By: #### 3 274-8 ####IRVIN MUNGUIA ([id number])[facility] ([facility])[address] [place] [address] Heparin unfractionated Chromogenic method Qn (PPP) 0.4 IU/mL Normal See Comment Below for Therapeutic Ranges [facility] Comment on above: Order Comment: The t herapeutic reference range for UFH may be either 0.3-0.6 IU/mL or 0.3-0.7 IU/mL based on the clinical setting for anticoagulant therapy and the associated nomogram used. For Heparin dosing guidelines based on clinical scenario and Heparin Assay results, please refer to local Pharmacy and the [facility] Guidelines for Anticoagulation Therapy available on the [facility] intranet at: [email or web address]/[email or web address]_ [facility]_Guidelines_for_Anticoagu.aspx Performed By: #### 3 274-8 ####IRVIN MUNGUIA ([id number])[facility] ([facility])[address] [place] [address] No Panel Informationon 03-01 [facility] PT Coag (PPP) [Time]on 03-01 INR Coag (PPP) [Relative time] 1.3 {INR} High 0.9 - 1.1 [facility] Interpretation and review of laboratory results Abnormal [facility] INR Coag (PPP) [Relative time] 1.3 High 0.9-1.1 [facility] Comment on above: Performed By: #### 5 902-2 ####IRVIN MUNGUIA ([id number])[facility] ([facility])[address] [place] [address] Protime-INRon 03-01-2024 PT Coag (PPP) [Time] 14.9 s High [facility] XR ABDOMEN 1 VIEWon 03-01-20 XR ABDOMEN 1 VIEW Normal [facility] XR Abdomen Single viewon Radiology Study observation (narrative) [facility] Work Phone: Amylaseon 02-29-2024 Amylase [Catalytic activity/Vol] 25 U/L Low 29 - 103 U/L [facility] Amylase [Catalytic activity/Vol] 25 U/L Low 29-103 [facility] Comment on above: Performed By: #### 1 798-8 ####BRYAN EZRA ([id number])[facility] ([facility])[address] [place] [address] Amylase [Catalytic activity/ Vol]on 02-29-2024 Interpretation and review of laboratory results Abnormal [facility] Basic metabolic 2000 panelon 02-29-2024 Anion gap [Moles/Vol] 13 mmol/L 10 - 2 0 mmol/L [facility] Calcium [Mass/Vol] 8.3 mg/dL Low 8.6 - 10. 3 mg/dL [facility] Chloride [Moles/Vol] 102 mmol/L 98 - 10 7 mmol/L [facility] CO2 [Moles/Vol] 24 mmol/L 21 - 32 mmol/L [facility] Creatinine [Mass/Vol] 0.64 mg/dL 0.50 - 1.05 mg/dL [facility] eGFR - PINF [facility] Comment on above: Calculations of estuardo mated GFR are performed using the 2020 CKD-EPI Study Refit equation without the race variable for the IDMS-Traceable creatinine methods. https://jasn.asnjournals.org/content///ASN.023215 0091 Glucose [Mass/Vol] 144 mg/dL High 74 - 99 mg/dL [facility] Interpretation and review of laboratory results Abnormal [facility] Potassium [Moles/Vol] 3.9 mmol/L 3.5 - 5.3 mmol/L [facility] Sodium [Moles/Vol] 135 mmol/L Low 136 - 145 mmol/L [facility] Urea nitrogen [Mass/Vol] 9 mg/dL 6 - 23 mg/dL [facility] Anion gap [Moles/Vol] 13 mmol/L Normal 10-20 [facility] Comment on above: Performed By: #### 2 4321-2 ####IRVIN MUNGUIA ([id number])[facility] ([facility])[address] [place] [address] 34282 Calcium [Mass/Vol] 8.3 mg/dL Low 8.6-10.3 [facility] [place] Comment on above: Performed By: #### 2 4321-2 ####IRVIN MUNGUIA ([id number])[facility] ([facility])[address] [place] [address] 75294 Chloride [Moles/Vol] 102 mmol/L Normal 98-[address] [facility] Comment on above: Performed By: #### 2 4321-2 ####IRVIN MUNGUIA ([id number])[facility] ([facility])[address] [place] [address] 93151 CO2 [Moles/Vol] 24 mmol/L Normal 21-32 [facility] Comment on above: Performed By: #### 2 4321-2 ####IRVIN MUNGUIA ([id number])[facility] ([facility])[address] [place] [address] 28860 Creatinine [Mass/Vol] 0.64 mg/dL Normal 0.50-1.05 [facility] Comment on above: Performed By: #### 2 4321-2 ####IRVIN MUNGUIA ([id number])[facility] ([facility])[address] [place] [address] 69628 GFR/1.73 sq M.predicted MDRD (S/P/Bld) [Vol rate/Area] mL/min/{1.73_m2} Normal >60 [facility] Comment on above: Result Comment: Calc ulations of estimated GFR are performed using the 2020 CKD-EPI Study Refit equation without the race variable for the IDMS-Traceable creatinine methods.https://jasn.asnjournals.org/content/early/ N.4069745303 Performed By: #### 2 4321-2 ####IRVIN MUNGUIA ([id number])[facility] ([facility])[address] [place] [address] 10282 Glucose [Mass/Vol] 144 mg/dL High 74-99 [facility] Comment on above: Performed By: #### 2 4321-2 ####IRVIN MUNGUIA ([id number])[facility] ([facility])[address] [place] [address] 68490 Potassium [Moles/Vol] 3.9 mmol/L Normal 3.5-5.3 [facility] Comment on above: Performed By: #### 2 4321-2 ####IRVIN MUNGUIA ([id number])[facility] ([facility])[address] [place] [address] 45081 Sodium [Moles/Vol] 135 mmol/L Low 136-145 [facility] [place] Comment on above: Performed By: #### 2 4321-2 ####IRVIN MUNGUIA ([id number])[facility] ([facility])[address] [place] [address] 70799 Urea nitrogen [Mass/Vol] 9 mg/dL Normal 6-23 [facility] Comment on above: Performed By: #### 2 4321-2 ####IRVIN MUNGUIA ([id number])[facility] ([facility])[address] [place] [address] 44150 CBC panel Auto (Bld)on 02-28 Erythrocyte distribution width (RBC) [Ratio] 14.3 % 11.5 - 14.5 % [facility] Hematocrit (Bld) [Volume fraction] 34.4 % Low 36.0 - 46.0 % [facility] Hemoglobin (Bld) [Mass/Vol] 10.5 g/dL Low 12.0 - 16.0 g/dL [facility] Interpretation and review of laboratory results Abnormal [facility] MCH (RBC) [Entitic mass] 27.5 pg 26.0 - 34.0 pg [facility] MCHC (RBC) [Mass/Vol] 30.5 g/dL Low 32.0 - 36.0 g/dL [facility] MCV (RBC) [Entitic vol] 90 fL 80 - 100 fL [facility] Nucleated RBC/100 WBC (Bld) [Ratio] 0.0 % [facility] Platelets (Bld) [#/Vol] 322 10*3/uL [facility] RBC (Bld) [#/Vol] 3.82 10*6/uL Low [facility] WBC (Bld) [#/Vol] 5.7 10*3/uL [facility] Erythrocyte distribution width (RBC) [Ratio] 14.3 % Normal 11.5-14.5 [facility] Comment on above: Performed By: #### 5 8410-2 ####IRVIN MUNGUIA ([id number])[facility] ([facility])[address] [place] [address] 11053 Hematocrit (Bld) [Volume fraction] 34.4 % Low 36.0-46.0 [facility] Comment on above: Performed By: #### 5 8410-2 ####IRVIN MUNGUIA ([id number])[facility] ([facility])[address] [place] [address] 61856 Hemoglobin (Bld) [Mass/Vol] 10.5 g/dL Low 12.0-16.0 [facility] Comment on above: Performed By: #### 5 8410-2 ####IRVIN MUNGUIA ([id number])[facility] ([facility])[address] [place] [address] 86278 MCH (RBC) [Entitic mass] 27.5 pg Normal 26.0-34.0 [facility] Comment on above: Performed By: #### 5 8410-2 ####IRVIN MUNGUIA ([id number])[facility] ([facility])[address] [place] [address] 56594 MCHC (RBC) [Mass/Vol] 30.5 g/dL Low 32.0-36.0 [facility] Comment on above: Performed By: #### 5 8410-2 ####IRVIN MUNGUIA ([id number])[facility] ([facility])[address] [place] [address] 95065 MCV (RBC) [Entitic vol] 90 fL Normal 80-100 [facility] Comment on above: Performed By: #### 5 8410-2 ####IRVIN MUNGUIA ([id number])[facility] ([facility])[address] [place] [address] 84619 Nucleated RBC/100 WBC (Bld) [Ratio] 0.0 /100 WBCs Normal 0.0-0.0 [facility] Comment on above: Performed By: #### 5 8410-2 ####IRVIN MUNGUIA ([id number])[facility] ([facility])[address] [place] [address] 60049 Platelets (Bld) [#/Vol] 322 x10*3/uL Normal 150-450 [facility] Comment on above: Performed By: #### 5 8410-2 ####IRVIN MUNGUIA ([id number])[facility] ([facility])[address] [place] [address] 06299 RBC (Bld) [#/Vol] 3.82 x10*6/uL Low 4.00-5.[address] [facility] Comment on above: Performed By: #### 5 8410-2 ####IRVIN MUNGUIA ([id number])[facility] ([facility])[address] [place] [address] 19469 WBC (Bld) [#/Vol] 5.7 x10*3/uL Normal 4.4-11.3 [facility] Comment on above: Performed By: #### 5 8410-2 ####IRVIN MUNGUIA ([id number])[facility] ([facility])[address] [place] [address] 94834 Glucose Test strip manual (B ld) [Mass/Vol]on 02-29-2024 Glucose [Mass/Vol] 142 mg/dL High 74 - 99 mg/dL [facility] Interpretation and review of laboratory results Abnormal [facility] Glucose [Mass/Vol] 142 mg/dL High 74-99 [facility] Comment on above: Performed By: #### 2 341-6 ####IRVIN MUNGUIA ([id number])[facility] ([facility])[address] [place] [address] 92773 Glucose [Mass/Vol] 149 mg/dL High 74 - 99 mg/dL [facility] Interpretation and review of laboratory results Abnormal [facility] Glucose [Mass/Vol] 149 mg/dL High 74-99 [facility] Comment on above: Performed By: #### 2 341-6 ####IRVIN MUNGUIA ([id number])[facility] ([facility])[address] [place] [address] 68262 Glucose [Mass/Vol] 155 mg/dL High 74 - 99 mg/dL [facility] Comment on above: RN/ NOTIFIED Interpretation and review of laboratory results Abnormal [facility] Glucose [Mass/Vol] 155 mg/dL High 74-99 [facility] Comment on above: Result Comment: RN/Abdoulaye Dillon NOTIFIED Performed By: #### 2 341-6 ####IRVIN MUNGUIA ([id number])[facility] ([facility])[address] [place] [address] 25238 Glucose [Mass/Vol] 152 mg/dL High 74 - 99 mg/dL [facility] Comment on above: RN/ NOTIFIED Interpretation and review of laboratory results Abnormal [facility] Glucose [Mass/Vol] 152 mg/dL High 74-99 [facility] Comment on above: Result Comment: KAY/Abdoulaye Dillon NOTIFIED Performed By: #### 2 341-6 ####IRVIN MUNGUIA ([id number])[facility] ([facility])[address] [place] [address] 33004 Heparin Assayon 02-29-2024 Heparin unfractionated Chromogenic method Qn (PPP) 0.2 See Comment Below for Therapeutic Ranges IU/mL [facility] Heparin unfractionated Chromogenic method Qn (PPP) 0.1 See Comment Below for Therapeutic Ranges IU/mL [facility] Heparin unfractionated Chromogenic method Qn (PPP) 0.1 See Comment Below for Therapeutic Ranges IU/mL [facility] Heparin Assay, UFHon 024 Heparin unfractionated Chromogenic method Qn (PPP) 0.1 See Comment Below for Therapeutic Ranges IU/mL [facility] Heparin unfractionated Chrom ogenic method Qn (PPP)on 02-29-2024 Interpretation and review of laboratory results Normal [facility] The therapeutic reference range for UFH may be either 0.3-0.6 IU/mL or 0.3-0.7 IU/mL based on the clinical setting for anticoagulant therapy and the associated nomogram used. For Heparin dosing guidelines based on clinical scenario and Heparin Assay results, please refer to local Pharmacy and the [facility] Guidelines for Anticoagulation Therapy available on the [facility] intranet at: [email or web address] [email or web address] [email or web address]/Pharmacy/P ages/[facility] ls_Guidelines_for_Antic oagu.aspx [facility] Interpretation and review of laboratory results Normal [facility] The therapeutic reference range for UFH may be either 0.3-0.6 IU/mL or 0.3-0.7 IU/mL based on the clinical setting for anticoagulant therapy and the associated nomogram used. For Heparin dosing guidelines based on clinical scenario and Heparin Assay results, please refer to local Pharmacy and [facility] Guidelines for Anticoagulation Therapy available on the [facility] intranet at: [email or web address] [email or web address]/Pharmacy/P ages/[facility] ls_Guidelines_for_Antic oagu.aspx [facility] Interpretation and review of laboratory results [facility] The therapeutic reference range for UFH may be either 0.3-0.6 IU/mL or 0.3-0.7 IU/mL based on the clinical setting for anticoagulant therapy and the associated nomogram used. For Heparin dosing guidelines based on clinical scenario and Heparin Assay results, please refer to local Pharmacy and the [facility] Guidelines for Anticoagulation Therapy available on the [facility] intranet at: [email or web address] [email or web address]/Pharmacy/P ages/[facility] ls_Guidelines_for_Antic oagu.aspx [facility] Interpretation and review of laboratory results Normal [facility] The therapeutic reference range for UFH may be either 0.3-0.6 IU/mL or 0.3-0.7 IU/mL based on the clinical setting for anticoagulant therapy and the associated nomogram used. For Heparin dosing guidelines based on clinical scenario and Heparin Assay results, please refer to local Pharmacy and [facility] Guidelines for Anticoagulation Therapy available on the [facility] intranet at: https://[facility] – fairfaxLED Opticsad[facility] ostals.[email or web address]/Pharmacy/P ages/[place]_[facility]_Guidelines_for_Antic oagu.aspx [facility] Heparin.unfractionatedon Heparin unfractionated Chromogenic method Qn (PPP) 0.2 IU/mL Normal See Comment Below for Therapeutic Ranges [facility] Comment on above: Order Comment: The t herapeutic reference range for UFH may be either 0.3-0.6 IU/mL or 0.3-0.7 IU/mL based on the clinical setting for anticoagulant therapy and the associated nomogram used. For Heparin dosing guidelines based on clinical scenario and Heparin Assay results, please refer to local Pharmacy and the [facility] Guidelines for Anticoagulation Therapy available on the [facility] intranet at: [email or web address] [email or web address] [email or web address]/Pharmacy/Pages/[facility]_Guidelines_for_Anticoagu.aspx Performed By: #### 3 274-8 ####BRYAN EZRA ([id number])[facility] ([facility])[address] [place] [address] Heparin unfractionated Chromogenic method Qn (PPP) 0.1 IU/mL Normal See Comment Below for Therapeutic Ranges [facility] Comment on above: Order Comment: The t herapeutic reference range for UFH may be either 0.3-0.6 IU/mL or 0.3-0.7 IU/mL based on the clinical setting for anticoagulant therapy and the associated nomogram used. For Heparin dosing guidelines based on clinical scenario and Heparin Assay results, please refer to local Pharmacy and the [facility] Guidelines for Anticoagulation Therapy available on the [facility] intranet at: [email or web address]/Pharmacy/Pages/[place]_ spitals_Guidelines_for_Anticoagu.aspx Performed By: #### 3 274-8 ####IRVIN MUNGUIA ([id number])[facility] ([facility])[address] [place] [address] Heparin unfractionated Chromogenic method Qn (PPP) 0.1 IU/mL Normal See Comment Below for Therapeutic Ranges [facility] Comment on above: Order Comment: The t herapeutic reference range for UFH may be either 0.3-0.6 IU/mL or 0.3-0.7 IU/mL based on the clinical setting for anticoagulant therapy and the associated nomogram used. For Heparin dosing guidelines based on clinical scenario and Heparin Assay results, please refer to local Pharmacy and [facility] Guidelines for Anticoagulation Therapy available on the [facility] intranet at: https://[facility]/Pharmacy/Pages/[place]_ spitals_Guidelines_for_Anticoagu.aspx Performed By: #### 3 274-8 ####IRVIN MUNGUIA ([id number])[facility] ([facility])[address] [place] [address] Heparin unfractionated Chromogenic method Qn (PPP) 0.1 IU/mL Normal See Comment Below for Therapeutic Ranges [facility] Comment on above: Order Comment: When two [...] please refer to local Pharmacy and the [facility] Guidelines for Anticoagulation Therapy available on the [facility] intranet at: https://[email or web address]/Pharmacy/Pages/Plover_ spitals_Guidelines_for_Anticoagu.aspx Performed By: #### 3 274-8 ####IRVIN MUNGUIA ([id number])[facility] ([facility])[address] [place], [place] [address] Lipaseon 02-29-2024 Lipase [Catalytic activity/Vol] 33 U/L 9 - 82 U/L [facility] Lipase [Catalytic activity/V ol]on 02-29-2024 Interpretation and review of laboratory results Normal [facility] Venipuncture immediately after or during the administration of Metamizole may lead to falsely low results. Testing should be performed immediately prior to Metamizole dosing. [facility] No Panel Informationon 02-28 [facility] Triacylglycerol lipaseon Lipase [Catalytic activity/Vol] 33 U/L Normal -82 [facility] Comment on above: Order Comment: Venip uncture immediately after or during the administration of Metamizole may lead to falsely low results. Testing should be performed immediately prior to Metamizole dosing. Performed By: #### 3 040-3 ####BRYAN EZRA ([id number])[facility] ([facility])[address] [place] [address] 90936 CBC panel Auto (Bld)on 02-27 Erythrocyte distribution width (RBC) [Ratio] 14.2 % 11.5 - 14.5 % [facility] Hematocrit (Bld) [Volume fraction] 35.7 % Low 36.0 - 46.0 % [facility] Hemoglobin (Bld) [Mass/Vol] 11.2 g/dL Low 12.0 - 16.0 g/dL [facility] Interpretation and review of laboratory results Abnormal [facility] MCH (RBC) [Entitic mass] 27.9 pg 26.0 - 34.0 pg [facility] MCHC (RBC) [Mass/Vol] 31.4 g/dL Low 32.0 - 36.0 g/dL [facility] MCV (RBC) [Entitic vol] 89 fL 80 - 100 fL [facility] Nucleated RBC/100 WBC (Bld) [Ratio] 0.0 % [facility] Platelets (Bld) [#/Vol] 344 10*3/uL [facility] RBC (Bld) [#/Vol] 4.02 10*6/uL [facility] WBC (Bld) [#/Vol] 9.7 10*3/uL [facility] Erythrocyte distribution width (RBC) [Ratio] 14.2 % Normal 11.5-14.5 [facility] Comment on above: Performed By: #### 5 8410-2 ####IRVIN MUNGUIA ([id number])[facility] ([facility])[address] [place] [address] 70553 Hematocrit (Bld) [Volume fraction] 35.7 % Low 36.0-46.0 [facility] Comment on above: Performed By: #### 5 8410-2 ####IRVIN MUNGUIA ([id number])[facility] ([facility])[address] [place] [address] 23765 Hemoglobin (Bld) [Mass/Vol] 11.2 g/dL Low 12.0-16.0 [facility] Comment on above: Performed By: #### 5 8410-2 ####IRVIN MUNGUIA ([id number])[facility] ([facility])[address] [place] [address] 43034 MCH (RBC) [Entitic mass] 27.9 pg Normal 26.0-34.0 [facility] Comment on above: Performed By: #### 5 8410-2 ####IRVIN MUNGUIA ([id number])[facility] ([facility])[address] [place] [address] 27387 MCHC (RBC) [Mass/Vol] 31.4 g/dL Low 32.0-36.0 [facility] Comment on above: Performed By: #### 5 8410-2 ####IRVIN MUNGUIA ([id number])[facility] ([facility])[address] [place] [address] 90723 MCV (RBC) [Entitic vol] 89 fL Normal 80-100 [facility] Comment on above: Performed By: #### 5 8410-2 ####IRVIN MUNGUIA ([id number])[facility] ([facility])[address] [place] [address] 75307 Nucleated RBC/100 WBC (Bld) [Ratio] 0.0 /100 WBCs Normal 0.0-0.0 [facility] Comment on above: Performed By: #### 5 8410-2 ####IRVIN MUNGUIA ([id number])[facility] ([facility])[address] [place] [address] 11764 Platelets (Bld) [#/Vol] 344 x10*3/uL Normal 150-450 [facility] Comment on above: Performed By: #### 5 8410-2 ####IRVIN MUNGUIA ([id number])[facility] ([facility])[address] [place] [address] RBC (Bld) [#/Vol] 4.02 x10*6/uL Normal 4.00-5.[address] [facility] Comment on above: Performed By: #### 5 8410-2 ####IRVIN MUNGUIA ([id number])[facility] ([facility])[address] [place] [address] 97211 WBC (Bld) [#/Vol] 9.7 x10*3/uL Normal 4.4-11.3 [facility] Comment on above: Performed By: #### 5 8410-2 ####IRVIN MUNGUIA ([id number])[facility] ([facility])[address] [place], [place] [address] CT Chest W contrast IV and C [...] pulmonary embolism. COMPARISON: None Available. ACCESSION NUMBER(S): [id number] ORDERING CLINICIAN: MIKE LAND TECHNIQUE: CTA of [...] pulmonary embolism. COMPARISON: None Available. ACCESSION NUMBER(S): [id number] ORDERING CLINICIAN: MIKE LAND TECHNIQUE: CTA of [...] AM. 2.Fatty liver. Signed by Edwin Alejandro, [facility] Work Phone: CT Chest W contrast IV and C T angiogram Pulmonary arteries for pulmonary embolus W contrast IVOrdered By: Edwin Alejandro on 02-28-2024 [facility] Work Phone: Coagulation surface inducedo n 02-28-2024 aPTT Coag (PPP) [Time] 30 s Normal 27-38 [facility] Comment on above: Order Comment: Basel ine aPTT before initiating heparin infusion. Nursing to release order.The APTT is no longer used for monitoring Unfractionated Heparin Therapy. For monitoring Heparin Therapy, use the Heparin Assay. Performed By: #### 1 4979-9 ####IRVIN MUNGUIA ([id number])[facility] ([facility])[address] [place], [place] [address] Coagulation tissue factor in ducedon 02-28-2024 PT Coag (PPP) [Time] 13.8 s High 9.8-12.[address] [facility] Comment on above: Order Comment: If nawaf earl has not had PT + INR in the last 24 hours. Nursing to release order. Performed By: #### 5 902-2 ####IRVIN MUNGUIA ([id number])[facility] ([facility])[address] [place] [address] 29652 Comprehensive metabolic 2000 panelon 02-28-2024 Albumin BCP dye [Mass/Vol] 3.6 g/dL 3.4 - 5.0 g/dL [facility] ALP [Catalytic activity/Vol] 144 U/L High 33 - 110 U/L [facility] ALT With P-5'-P [Catalytic activity/Vol] 29 U/L 7 - 45 U/L [facility] Comment on above: Patients treated wit h Sulfasalazine may generate falsely decreased results for ALT. Anion gap [Moles/Vol] 13 mmol/L 10 - 2 0 mmol/L [facility] AST With P-5'-P [Catalytic activity/Vol] 36 U/L 9 - 39 U/L [facility] Bilirubin [Mass/Vol] 0.3 mg/dL 0.0 - 1 .2 mg/dL [facility] Calcium [Mass/Vol] 8.4 mg/dL Low 8.6 - 10. 3 mg/dL [facility] Chloride [Moles/Vol] 101 mmol/L 98 - 10 7 mmol/L [facility] CO2 [Moles/Vol] 24 mmol/L 21 - 32 mmol/L [facility] Creatinine [Mass/Vol] 0.67 mg/dL 0.50 - 1.05 mg/dL [facility] eGFR - PINF [facility] Comment on above: Calculations of estuardo mated GFR are performed using the 2020 CKD-EPI Study Refit equation without the race variable for the IDMS-Traceable creatinine methods. https://jasn.asnjournals.org/content//ASN.888232 7195 Glucose [Mass/Vol] 125 mg/dL High 74 - 99 mg/dL [facility] Interpretation and review of laboratory results Abnormal [facility] Potassium [Moles/Vol] 4.0 mmol/L 3.5 - 5.3 mmol/L [facility] Protein [Mass/Vol] 7.3 g/dL 6.4 - 8.2 g/dL [facility] Sodium [Moles/Vol] 134 mmol/L Low 136 - 145 mmol/L [facility] Urea nitrogen [Mass/Vol] 12 mg/dL 6 - 23 mg/dL [facility] Albumin BCP dye [Mass/Vol] 3.6 g/dL Normal 3.4-5.0 [facility] Comment on above: Performed By: #### 2 4323-8 ####IRVIN MUNGUIA ([id number])[facility] ([facility])[address] [place] [address] 30557 ALP [Catalytic activity/Vol] 144 U/L High 33-110 [facility] Comment on above: Performed By: #### 2 4323-8 ####IRVIN MUNGUIA ([id number])[facility] ([facility])[address] [place] [address] 26813 ALT With P-5'-P [Catalytic activity/Vol] 29 U/L Normal 7-45 [facility] Comment on above: Result Comment: Evelyn ents treated with Sulfasalazine may generate falsely decreased results for ALT. Performed By: #### 2 4323-8 ####IRVIN MUNGUIA ([id number])[facility] ([facility])[address] [place] [address] 32482 Anion gap [Moles/Vol] 13 mmol/L Normal 10-20 [facility] Comment on above: Performed By: #### 2 4323-8 ####IRVIN MUNGUIA ([id number])[facility] ([facility])[address] [place] [address] 47396 AST With P-5'-P [Catalytic activity/Vol] 36 U/L Normal 9-39 [facility] Comment on above: Performed By: #### 2 4323-8 ####IRVIN MUNGUIA ([id number])[facility] ([facility])[address] [place] [address] 23529 Bilirubin [Mass/Vol] 0.3 mg/dL Normal 0.0-1.[address] [facility] Comment on above: Performed By: #### 2 4322-8 ####IRVIN MUNGUIA ([id number])[facility] ([facility])[address] [place] [address] 30174 Calcium [Mass/Vol] 8.4 mg/dL Low 8.6-10.3 [facility] Comment on above: Performed By: #### 2 432-8 ####IRVIN MUNGUIA ([id number])[facility] ([facility])[address] [place] [address] 92147 Chloride [Moles/Vol] 101 mmol/L Normal 98-[address] [facility] Comment on above: Performed By: #### 2 432-8 ####IRVIN MUNGUIA ([id number])[facility] ([facility])[address] [place] [address] 59486 CO2 [Moles/Vol] 24 mmol/L Normal 21-32 [facility] Comment on above: Performed By: #### 2 4323-8 ####IRVIN MUNGUIA ([id number])[facility] ([facility])[address] [place] [address] 12674 Creatinine [Mass/Vol] 0.67 mg/dL Normal 0.50-1.05 [facility] Comment on above: Performed By: #### 2 4323-8 ####IRVIN MUNGUIA ([id number])[facility] ([facility])[address] [place] [address] 96743 GFR/1.73 sq M.predicted MDRD (S/P/Bld) [Vol rate/Area] mL/min/{1.73_m2} Normal >60 [facility] Comment on above: Result Comment: Calc ulations of estimated GFR are performed using the 2020 CKD-EPI Study Refit equation without the race variable for the IDMS-Traceable creatinine methods.https://jasn.asnjournals.org/content/early// N.3074742930 Performed By: #### 2 4323-8 ####IRVIN MUNGUIA ([id number])[facility] ([facility])[address] [place] [address] 06264 Glucose [Mass/Vol] 125 mg/dL High 74-99 [facility] Comment on above: Performed By: #### 2 4323-8 ####IRVIN MUNGUIA ([id number])[facility] ([facility])[address] [place] [address] 73827 Potassium [Moles/Vol] 4.0 mmol/L Normal 3.5-5.3 [facility] Comment on above: Performed By: #### 2 4323-8 ####IRVIN MUNGUIA ([id number])[facility] ([facility])[address] [place] [address] 71858 Protein [Mass/Vol] 7.3 g/dL Normal 6.4-8.2 [facility] Comment on above: Performed By: #### 2 4323-8 ####IRVIN MUNGUIA ([id number])[facility] ([facility])[address] [place] [address] 44849 Sodium [Moles/Vol] 134 mmol/L Low 136-145 [facility] Comment on above: Performed By: #### 2 4323-8 ####IRVIN MUNGUIA ([id number])[facility] ([facility])[address] [place] [address] 66522 Urea nitrogen [Mass/Vol] 12 mg/dL Normal 6-23 [facility] Comment on above: Performed By: #### 2 4323-8 ####BRYAN EZRA ([id number])[facility] ([facility])[address] [place] [address] ECG 12 LeadOrdered By: Harmony Naik on 02-28-2024 Atrial Rate 101 BPM [facility] Work Phone: P [place] 38 degrees [facility] Work Phone: P Offset 206 ms [facility] Work Phone: P Onset 154 ms [facility] Work Phone: MD Interval 140 ms [facility] Work Phone: Q Onset 224 ms [facility] Work Phone: QRS Count 17 beats [facility] Work Phone: QRS Duration 84 ms [facility] Work Phone: QT Interval 348 ms [facility] Work Phone: QTC Calculation(Bazett) 451 [facility] Work Phone: QTC Fredericia [facility] Work Phone: R [place] 8 degrees [facility] Work Phone: T [place] 35 degrees [facility] Work Phone: T Offset 398 ms [facility] Work Phone: Ventricular Rate 101 BPM [facility] Work Phone: [facility] Work Phone: ECG 12 Leadon 02-28-2024 Sinus tachycardia Otherwise normal ECG When compared with ECG of 15-FEB-2024 20:28, No significant change was found Confirmed by Dominick Naik ([id number]) on 02/28/2024 9:53:18 PM MUSE Dominick Naik MD - 02/28/2024 Sinus tachycardia Otherwise normal ECG When compared with ECG of 15-FEB-2024 20:, No significant change was found Confirmed by Dominick Naik ([id number]) on 02/28/2024 9:53:18 PM [facility] Work Phone: ECG 12-LEADon 02-28-2024 ECG 12-LEAD Ventricular Rate 101 Atrial Rate 101 P-R Interval 140 QRS Duration 84 Q-T Interval 348 QTC Calculation(Bazett) 451 P [place] 38 R [place] 8 T [place] 35 QRS Count 17 Q Onset 224 P Onset 154 P Offset 206 T Offset 398 QTC Fredericia 414 Diagnosis Sinus tachycardia Otherwise normal ECG When compared with ECG of 15-Feb-2024:, No significant change was found Confirmed by Dominick Naik ([id number]) on 02/28/2024 9:53:18 PM Normal [facility] Glucose Test strip manual (B ld) [Mass/Vol]on 02-28-2024 Glucose [Mass/Vol] 160 mg/dL High 74 - 99 mg/dL [facility] Interpretation and review of laboratory results Abnormal [facility] Glucose [Mass/Vol] 160 mg/dL High 74-99 [facility] Comment on above: Performed By: #### 2 341-6 ####IRVIN MUNGUIA ([id number])[facility] ([facility])[address] [place] [address] 09557 Glucose [Mass/Vol] 129 mg/dL High 74 - 99 mg/dL [facility] Interpretation and review of laboratory results Abnormal [facility] Glucose [Mass/Vol] 129 mg/dL High 74-99 [facility] Comment on above: Performed By: #### 2 341-6 ####IRVIN MUNGUIA ([id number])[facility] ([facility])[address] [place] [address] 04063 Glucose [Mass/Vol] 170 mg/dL High 74 - 99 mg/dL [facility] Interpretation and review of laboratory results Abnormal [facility] Glucose [Mass/Vol] 170 mg/dL High 74-99 [facility] Comment on above: Performed By: #### 2 341-6 ####IRVIN MUNGUIA ([id number])[facility] ([facility])[address] [place] [address] Glucose [Mass/Vol] 147 mg/dL High 74 - 99 mg/dL [facility] Interpretation and review of laboratory results Abnormal [facility] Glucose [Mass/Vol] 147 mg/dL High 74-99 [facility] Comment on above: Performed By: #### 2 341-6 ####IRVIN MUNGUIA ([id number])[facility] ([facility])[address] [place] [address] Heparin Assayon 02-28-2024 Heparin unfractionated Chromogenic method Qn (PPP) 0.3 See Comment Below for Therapeutic Ranges IU/mL [facility] Heparin unfractionated Chromogenic method Qn (PPP) 0.7 See Comment Below for Therapeutic Ranges IU/mL [facility] Heparin unfractionated Chrom ogenic method Qn (PPP)on 02-28-2024 Interpretation and review of laboratory results Normal [facility] The therapeutic reference range for UFH may be either 0.3-0.6 IU/mL or 0.3-0.7 IU/mL based on the clinical setting for anticoagulant therapy and the associated nomogram used. For Heparin dosing guidelines based on clinical scenario and Heparin Assay results, please refer to local Pharmacy and [facility] Guidelines for Anticoagulation Therapy available on the [facility] intranet at: [email or web address]/P [email or web address] ls_Guidelines_for_Antic oagu.aspx [facility] Interpretation and review of laboratory results Normal [facility] The therapeutic reference range for UFH may be either 0.3-0.6 IU/mL or 0.3-0.7 IU/mL based on the clinical setting for anticoagulant therapy and the associated nomogram used. For Heparin dosing guidelines based on clinical scenario and Heparin Assay results, please refer to local Pharmacy and [facility] Guidelines for Anticoagulation Therapy available on the [facility] intranet at: [email or web address] [email or web address]/Pharmacy/P [email or web address]/[facility] ls_Guidelines_for_Antic oagu.aspx [facility] Heparin.unfractionatedon Heparin unfractionated Chromogenic method Qn (PPP) 0.3 IU/mL Normal See Comment Below for Therapeutic Ranges [facility] Comment on above: Order Comment: The t herapeutic reference range for UFH may be either 0.3-0.6 IU/mL or 0.3-0.7 IU/mL based on the clinical setting for anticoagulant therapy and the associated nomogram used. For Heparin dosing guidelines based on clinical scenario and Heparin Assay results, please refer to local Pharmacy and [facility] Guidelines for Anticoagulation Therapy available on the [facility] intranet at: [email or web address]/Pharmacy/Pages/[facility]Guidelines_for_Anticoagu.aspx Performed By: #### 3 274-8 ####IRVIN MUNGUIA ([id number])[facility] ([facility])[address] [place] [address] Heparin unfractionated Chromogenic method Qn (PPP) 0.7 IU/mL Normal See Comment Below for Therapeutic Ranges [facility] Comment on above: Order Comment: The t herapeutic reference range for UFH may be either 0.3-0.6 IU/mL or 0.3-0.7 IU/mL based on the clinical setting for anticoagulant therapy and the associated nomogram used. For Heparin dosing guidelines based on clinical scenario and Heparin Assay results, please refer to local Pharmacy and [facility] Guidelines for Anticoagulation Therapy available on the [facility] intranet at: [email or web address]/Pharmacy/Pages/[facility]_Guidelines_for_Anticoagu.aspx Performed By: #### 3 274-8 ####IRVIN MUNGUIA ([id number])[facility] ([facility])[address] [place] [address] No Panel Informationon 02-27 Extra Tube Hold for add-ons. [facility] Comment on above: Auto resulted. [facility] PT Coag (PPP) [Time]on 02-27 INR Coag (PPP) [Relative time] 1.2 {INR} High 0.9 - 1.1 [facility] Interpretation and review of laboratory results Abnormal [facility] INR Coag (PPP) [Relative time] 1.2 High 0.9-1.1 [facility] Comment on above: Order Comment: If nawaf earl has not had PT + INR in the last 24 hours. Nursing to release order. Performed By: #### 5 902-2 ####BRYAN EZRA ([id number])[facility] ([facility])[address] [place] [address] Protime-INRon 02-28-2024 PT Coag (PPP) [Time] 13.8 s High [facility] TRANSTHORACIC ECHO (TTE) COM PLETEon 02-28-2024 TRANSTHORACIC ECHO (TTE) COMPLETE Normal [facility] US Heart TransthoracicOrdere d By: Leon Barrera on 02-28-2024 Aortic Valve Area by Continuity of Peak Velocity 2.01 cm2 [facility] Work Phone: Aortic Valve Area by Continuity of VTI 1.84 cm2 [facility] Work Phone: AV mn grad 7.0 mmHg [facility] Work Phone: AV pk grad 14.7 mmHg [facility] Work Phone: AV pk alice 1.92 m/s [facility] Work Phone: LA vol index A/L 11.3 ml/m2 [facility] Work Phone: LV A4C EF 51.7 [facility] Work Phone: LV Biplane EF 76 % [facility] Work Phone: LVIDd 4.21 cm [facility] Work Phone: LVOT diam 1.90 cm [facility] Work Phone: MV avg E/e' ratio 14.13 [facility] Work Phone: MV E/A ratio 0.91 [facility] Work Phone: RVSP 31.7 mmHg [facility] Work Phone: Tricuspid annular plane systolic excursion 1.9 cm [facility] Work Phone: [facility] Work Phone: US [place] [address] ext-[phone], TRANSTHORACIC ECHOCARDIOGRAM REPORT Patient Name: DOROTHEA Lees Physician: [id number] Leon Barrera MD Study Date: 02/28/2024 Ordering Provider: [id number] BREA NOLEN MRN/PID: [id number] Fellow: Nurse: Elyssa Simental RN Date of /Age: 4 1975 / 48 years Recreation Adviser: Dianna Hunter RVT, BUNNY Gender: F Additional Staff: Height: 162.56 cm Admit Date: 02/27/2024 Weight: 102.51 kg Admission Status: Inpatient - Routine BSA / BMI: 2.06 m2 / 38.79 kg/m2 Department Location: [address] Blood Pressure: 147 /81 mmHg Study Type: TRANSTHORACIC ECHO (TTE) COMPLETE Diagnosis/ICD: Single subsegmental Pulmonary embolism without acute cor pulmonale-I26.93 Indication: PE CPT Codes: Echo Complete w Full Doppler-39499 Patient History: Pertinent History: No previous echo. [...] LA Area A2C: 13.5 cm2 LA [place] A4C: 5.2 cm LA [place] A2C: 5.5 cm LA Volume Index: 13.1 [...] not included)... Leon Samson MD - 02/28/2024 [place] [address] ext-[phone], TRANSTHORACIC ECHOCARDIOGRAM REPORT Patient Name: DOROTHEA Lees Physician: [id number] Leon Barrera MD Study Date: 02/28/2024 Ordering Provider: [id number] BREA NOLEN MRN/PID: [id number] Fellow: Nurse: Elyssa Simental RN Date of /Age: 4 1975 / 48 years Recreation Adviser: BUNNY Higuera RVT Gender: F Additional Staff: Height: 162.56 cm Admit Date: 02/27/2024 Weight: 102.51 kg Admission Status: Inpatient - Routine BSA / BMI: 2.06 m2 / 38.79 kg/m2 Department Location: [address] Blood Pressure: 147 /81 mmHg Study Type: TRANSTHORACIC ECHO (TTE) COMPLETE Diagnosis/ICD: Single subsegmental Pulmonary embolism without acute cor pulmonale-I26.93 Indication: PE CPT Codes: Echo Complete w Full Doppler-21813 Patient History: Pertinent History: No previous echo. [...] LA Area A2C: 13.5 cm2 LA [place] A4C: 5.2 cm LA [place] A2C: 5.5 cm LA Volume Index: 13.1 [...] 1.6 m/s (0.6-0.9m/s) PV Max P.6 mmHg [id number] Leon Barrera MD Electronically signed on 02/28/2024 at 10:49: (more content not included)... [facility] Work Phone: US.doppler Lower extremity v ein - bilateralon 02-28-2024 [place] [address] ext-[phone], Vascular Lab Report VASC US LOWER EXTREMITY VENOUS DUPLEX BILATERAL Patient Name: DOROTHEA Lees Physician: [id number] Princess Ramírez MD Study Date: 02/28/2024 Ordering Provider: [id number] BREA NOLEN MRN/PID: [id number] Fellow: Technologist: Radha Lewis RVRufina/ Date of /Age: 4 1975 Technologist 2: years Gender: F Admission Status: Inpatient Location [facility] Performed: Diagnosis/ICD: Other pulmonary embolism without acute cor pulmonale-I26.99 CPT Codes: 65366 Peripheral venous duplex scan for DVT complete [...] Popliteal Yes None Spontaneous/Phasic Peroneal Yes None [id number] Princess Ramírez MD Final Princess Cook MD - 02/28/2024 [place] [address] ext-[phone], Vascular Lab Report VASC US LOWER EXTREMITY VENOUS DUPLEX BILATERAL Patient Name: DOROTHEA Lees Physician: [id number] Ramírez MD Study Date: 02/28/2024 Ordering Provider: [id number] BREA NOLEN MRN/PID: [id number] Fellow: Technologist: Radha Lewis RVT/ Date of /Age: 4 1975 Technologist 2: years Gender: F Admission Status: Inpatient Location [facility] Performed: Diagnosis/ICD: Other pulmonary embolism without acute cor pulmonale-I26.99 CPT Codes: 37474 Peripheral venous duplex scan for DVT complete [...] Popliteal Yes None Spontaneous/Phasic Peroneal Yes None [id number] Princess Ramírez MD Final [facility] Work Phone: Radiology Study observation (narrative) [facility] Work Phone: US.doppler Lower extremity v ein - bilateralOrdered By: Princess Ramírez on 02-28-2024 [facility] Work Phone: VASC US LOWER EXTREMITY VENO US DUPLEX BILATERALon 02-28-2024 VASC US LOWER EXTREMITY VENOUS DUPLEX BILATERAL Normal [facility] aPTT - baselineon 02-28-2024 aPTT Coag (PPP) [Time] 30 s [facility] aPTT Coag (PPP) [Time]on Interpretation and review of laboratory results Normal [facility] The APTT is no longe r used for monitoring Unfractionated Heparin Therapy. For monitoring Heparin Therapy, use the Heparin Assay. [facility] Basic metabolic 2000 panelon 02-27-2024 Anion gap [Moles/Vol] 14 mmol/L 10 - 2 0 mmol/L [facility] Calcium [Mass/Vol] 8.8 mg/dL 8.6 - 10. 3 mg/dL [facility] Chloride [Moles/Vol] 100 mmol/L 98 - 10 7 mmol/L [facility] CO2 [Moles/Vol] 24 mmol/L 21 - 32 mmol/L [facility] Creatinine [Mass/Vol] 0.95 mg/dL 0.50 - 1.05 mg/dL [facility] GFR/1.73 sq M.predicted among non-blacks MDRD (S/P/Bld) [Vol rate/Area] 74 mL/min/{1.73_m2} - PINF [facility] Comment on above: Calculations of estuardo mated GFR are performed using the 2020 CKD-EPI Study Refit equation without the race variable for the IDMS-Traceable creatinine methods. https://jasn.asnjournals.org/content//ASN.457248 8937 Glucose [Mass/Vol] 200 mg/dL High 74 - 99 mg/dL [facility] Potassium [Moles/Vol] 4.1 mmol/L 3.5 - 5.3 mmol/L [facility] Sodium [Moles/Vol] 134 mmol/L Low 136 - 145 mmol/L [facility] Urea nitrogen [Mass/Vol] 15 mg/dL 6 - 23 mg/dL [facility] Anion gap [Moles/Vol] 14 mmol/L Normal 10-20 [facility] Comment on above: Performed By: #### 2 4321-2 ####IRVIN MUNGUIA ([id number])[facility] ([facility])[address] [place] [address] 03690 Calcium [Mass/Vol] 8.8 mg/dL Normal 8.6-10.3 [facility] Comment on above: Performed By: #### 2 4321-2 ####IRVIN MUNGUIA ([id number])[facility] ([facility])[address] [place] [address] 70036 Chloride [Moles/Vol] 100 mmol/L Normal 98-[address] [facility] Comment on above: Performed By: #### 2 4321-2 ####IRVIN MUNGUIA ([id number])[facility] ([facility])[address] [place] [address] 86094 CO2 [Moles/Vol] 24 mmol/L Normal 21-32 [facility] Comment on above: Performed By: #### 2 4321-2 ####IRVIN MUNGUIA ([id number])[facility] ([facility])[address] [place] [address] 07519 Creatinine [Mass/Vol] 0.95 mg/dL Normal 0.50-1.05 [facility] Comment on above: Performed By: #### 2 4321-2 ####IRVIN MUNGUIA ([id number])[facility] ([facility])[address] [place] [address] 71792 Glomerular filtration rate/1.73 sq M.predicted 74 mL/min/1.73m*2 Normal >60 [facility] Comment on above: Result Comment: Calc ulations of estimated GFR are performed using the 2020 CKD-EPI Study Refit equation without the race variable for the IDMS-Traceable creatinine methods.https://jasn.asnjournals.org/content/early/ N.2477291843 Performed By: #### 2 4321-2 ####IRVIN MUNGUIA ([id number])[facility] ([facility])[address] [place] [address] 03850 Glucose [Mass/Vol] 200 mg/dL High 74-99 [facility] Comment on above: Performed By: #### 2 4321-2 ####IRVIN MUNGUIA ([id number])[facility] ([facility])[address] [place] [address] 85079 Potassium [Moles/Vol] 4.1 mmol/L Normal 3.5-5.3 [facility] Comment on above: Performed By: #### 2 4321-2 ####IRVIN MUNGUIA ([id number])[facility] ([facility])[address] [place] [address] 54940 Sodium [Moles/Vol] 134 mmol/L Low 136-145 [facility] Comment on above: Performed By: #### 2 4321-2 ####IRVIN MUNGUIA ([id number])[facility] ([facility])[address] [place] [address] 37743 Urea nitrogen [Mass/Vol] 15 mg/dL Normal 6-23 [facility] Comment on above: Performed By: #### 2 4321-2 ####IRVIN MUNGUIA ([id number])[facility] ([facility])[address] [place] [address] 80257 CBC W Auto Differential pane l (Bld)on 02-27-2024 Basophils (Bld) [#/Vol] 0.03 10*3/uL [facility] Basophils/100 WBC (Bld) 0.2 % 0.0 - 2.0 % [facility] [facility] Eosinophils (Bld) [#/Vol] 0.10 10*3/uL [facility] Eosinophils/100 WBC (Bld) 0.8 % 0.0 - 6.0 % [facility] Erythrocyte distribution width (RBC) [Ratio] 14.0 % 11.5 - 14.5 % [facility] Hematocrit (Bld) [Volume fraction] 36.8 % 36.0 - 46.0 % [facility] Hemoglobin (Bld) [Mass/Vol] 11.4 g/dL Low 12.0 - 16.0 g/dL [facility] Immature granulocytes (Bld) [#/Vol] 0.11 10*3/uL [facility] Immature granulocytes/100 WBC (Bld) 0.9 % 0.0 - 0.9 % [facility] Comment on above: Immature Granulocyte Count (IG) includes promyelocytes, myelocytes and metamyelocytes but does not include bands. Percent differential counts (%) should be interpreted in the context of the absolute cell counts (cells/UL). Interpretation and review of laboratory results Abnormal [facility] Lymphocytes (Bld) [#/Vol] 2.94 10*3/uL [facility] Lymphocytes/100 WBC (Bld) 23.6 % 13.0 - 44.0 % [facility] MCH (RBC) [Entitic mass] 27.4 pg 26.0 - 34.0 pg [facility] MCHC (RBC) [Mass/Vol] 31.0 g/dL Low 32.0 - 36.0 g/dL [facility] MCV (RBC) [Entitic vol] 89 fL 80 - 100 fL [facility] Monocytes (Bld) [#/Vol] 0.72 10*3/uL [facility] Monocytes/100 WBC (Bld) 5.8 % 2.0 - 10.0 % [facility] Neutrophils (Bld) [#/Vol] 8.58 10*3/uL High [facility] Comment on above: Percent differential counts (%) should be interpreted in the context of the absolute cell counts (cells/uL). Neutrophils/100 WBC (Bld) 68.7 % 40.0 - 80.0 % [facility] Nucleated RBC/100 WBC (Bld) [Ratio] 0.0 % [facility] Platelets (Bld) [#/Vol] 327 10*3/uL [facility] RBC (Bld) [#/Vol] 4.16 10*6/uL [facility] WBC (Bld) [#/Vol] 12.5 10*3/uL High [facility] Basophils (Bld) [#/Vol] 0.03 x10*3/uL Normal 0.00-0.10 [facility] Comment on above: Performed By: #### 5 7021-8 ####IRVIN MUNGUIA ([id number])[facility] ([facility])[address] [place] [address] 06841 Basophils/100 WBC (Bld) 0.2 % Normal 0.0-2.0 [facility] Comment on above: Performed By: #### 5 7021-8 ####IRVIN MUNGUIA ([id number])[facility] ([facility])[address] [place] [address] 85550 Eosinophils (Bld) [#/Vol] 0.10 x10*3/uL Normal 0.00-0.70 [facility] Comment on above: Performed By: #### 5 7021-8 ####IRVIN MUNGUIA ([id number])[facility] ([facility])[address] [place] [address] 17116 Eosinophils/100 WBC (Bld) 0.8 % Normal 0.0-6.0 [facility] Comment on above: Performed By: #### 5 7021-8 ####IRVIN MUNGUIA ([id number])[facility] ([facility])[address] [place] [address] 85113 Erythrocyte distribution width (RBC) [Ratio] 14.0 % Normal 11.5-14.5 [facility] Comment on above: Performed By: #### 5 7021-8 ####IRVIN MUNGUIA ([id number])[facility] ([facility])[address] [place] [address] 56013 Hematocrit (Bld) [Volume fraction] 36.8 % Normal 36.0-46.0 [facility] Comment on above: Performed By: #### 5 7021-8 ####IRVIN MUNGUIA ([id number])[facility] ([facility])[address] [place] [address] 70815 Hemoglobin (Bld) [Mass/Vol] 11.4 g/dL Low 12.0-16.0 [facility] Comment on above: Performed By: #### 5 7021-8 ####IRVIN MUNGUIA ([id number])[facility] ([facility])[address] [place] [address] 44053 Immature granulocytes (Bld) [#/Vol] 0.11 x10*3/uL Normal 0.00-0.70 [facility] Comment on above: Performed By: #### 5 7021-8 ####IRVIN MUNGUIA ([id number])[facility] ([facility])[address] [place] [address] 56550 Immature granulocytes/100 WBC (Bld) 0.9 % Normal 0.0-0.9 [facility] Comment on above: Result Comment: Debbie ture Granulocyte Count (IG) includes promyelocytes, myelocytes and metamyelocytes but does not include bands. Percent differential counts (%) should be interpreted in the context of the absolute cell counts (cells/UL). Performed By: #### 5 7021-8 ####IRVIN MUNGUIA ([id number])[facility] ([facility])[address] [place] [address] 13894 Lymphocytes (Bld) [#/Vol] 2.94 x10*3/uL Normal 1.20-4.80 [facility] Comment on above: Performed By: #### 5 7021-8 ####IRVIN MUNGUIA ([id number])[facility] ([facility])[address] [place] [address] 57010 Lymphocytes/100 WBC (Bld) 23.6 % Normal 13.0-44.0 [facility] Comment on above: Performed By: #### 5 7021-8 ####IRVIN MUNGUIA ([id number])[facility] ([facility])[address] [place] [address] 64949 MCH (RBC) [Entitic mass] 27.4 pg Normal 26.0-34.0 [facility] Comment on above: Performed By: #### 5 7021-8 ####IRVIN MUNGUIA ([id number])[facility] ([facility])[address] [place] [address] 55991 MCHC (RBC) [Mass/Vol] 31.0 g/dL Low 32.0-36.0 [facility] Comment on above: Performed By: #### 5 7021-8 ####IRVIN MUNGUIA ([id number])[facility] ([facility])[address] [place] [address] 43870 MCV (RBC) [Entitic vol] 89 fL Normal 80-100 [facility] Comment on above: Performed By: #### 5 7021-8 ####IRVIN MUNGUIA ([id number])[facility] ([facility])[address] [place] [address] 64634 Monocytes (Bld) [#/Vol] 0.72 x10*3/uL Normal 0.10-1.00 [facility] Comment on above: Performed By: #### 5 7021-8 ####IRVIN MUNGUIA ([id number])[facility] ([facility])[address] [place] [address] 71386 Monocytes/100 WBC (Bld) 5.8 % Normal 2.0-10.0 [facility] Comment on above: Performed By: #### 5 7021-8 ####IRVIN MUNGUIA ([id number])[facility] ([facility])[address] [place] [address] 38397 Neutrophils (Bld) [#/Vol] 8.58 x10*3/uL High 1.20-7.70 [facility] Comment on above: Result Comment: Perc ent differential counts (%) should be interpreted in the context of the absolute cell counts (cells/uL). Performed By: #### 5 7021-8 ####IRVIN MUNGUIA ([id number])[facility] ([facility])[address] [place] [address] 20512 Neutrophils/100 WBC (Bld) 68.7 % Normal 40.0-80.0 [facility] Comment on above: Performed By: #### 5 7021-8 ####IRVIN MUNGUIA ([id number])[facility] ([facility])[address] [place] [address] 58539 Nucleated RBC/100 WBC (Bld) [Ratio] 0.0 /100 WBCs Normal 0.0-0.0 [facility] Comment on above: Performed By: #### 5 7021-8 ####IRVIN MUNGUIA ([id number])[facility] ([facility])[address] [place] [address] 06244 Platelets (Bld) [#/Vol] 327 x10*3/uL Normal 150-450 [facility] Comment on above: Performed By: #### 5 7021-8 ####IRVIN MUNGUIA ([id number])[facility] ([facility])[address] [place] [address] 45162 RBC (Bld) [#/Vol] 4.16 x10*6/uL Normal 4.00-5.[address] [facility] Comment on above: Performed By: #### 5 7021-8 ####IRVIN MUNGUIA ([id number])[facility] ([facility])[address] [place] [address] 09177 WBC (Bld) [#/Vol] 12.5 x10*3/uL High 4.4-11.[address] [facility] Comment on above: Performed By: #### 5 7021-8 ####IRVIN MUNGUIA ([id number])[facility] ([facility])[address] [place] [address] ABDOMEN PELVIS W IV CONTR Reny 02-27-2024 CT ABDOMEN PELVIS W IV CONTRAST Normal [facility] CT ANGIO CHEST FOR PULMONARY EMBOLISMon 02-27-2024 CT ANGIO CHEST FOR PULMONARY EMBOLISM Normal [facility] CT Abdomen and Pelvis W cont rast [...] Letha Jade 02/27/2024 9:21 PM Dictation workstation: [id number] Interpreted By: Letha Nicolas, STUDY: CT ABDOMEN PELVIS W IV CONTRAST; ; 02/27/2024 8:13 pm INDICATION: Signs/Symptoms:diffuse abdominal pain. COMPARISON: 02/15/2024. ACCESSION NUMBER(S): [id number] ORDERING CLINICIAN: HEMALATHA JACOBSON TECHNIQUE: Axial CT [...] Signs/Symptoms:diffuse abdominal pain. COMPARISON: 02/15/2024. ACCESSION NUMBER(S): [id number] ORDERING CLINICIAN: HEMALATHA JACOBSON TECHNIQUE: Axial CT [...] Letha Jade 02/27/2024 9:21 PM Dictation workstation: [id number] [facility] Work Phone: Radiology Study observation (narrative) [facility] Work Phone: CT Abdomen and Pelvis W cont rast IVOrdered By: Letha Jade on 02-27-2024 [facility] Work Phone: CT Chest W contrast IV and C T angiogram Pulmonary arteries for pulmonary embolus W contrast Prashant 02-27-2024 Radiology Study observation (narrative) [facility] Work Phone: Hepatic function 2000 panelo n 02-27-2024 Albumin BCP dye [Mass/Vol] 3.8 g/dL 3.4 - 5.0 g/dL [facility] ALP [Catalytic activity/Vol] 147 U/L High 33 - 110 U/L [facility] ALT With P-5'-P [Catalytic activity/Vol] 22 U/L 7 - 45 U/L [facility] Comment on above: Patients treated wit h Sulfasalazine may generate falsely decreased results for ALT. AST With P-5'-P [Catalytic activity/Vol] 21 U/L 9 - 39 U/L [facility] Bilirubin [Mass/Vol] 0.3 mg/dL 0.0 - 1 .2 mg/dL [facility] Bilirubin.direct [Mass/Vol] 0.1 mg/dL 0.0 - 0.3 mg/dL [facility] Protein [Mass/Vol] 7.7 g/dL 6.4 - 8.2 g/dL [facility] Albumin BCP dye [Mass/Vol] 3.8 g/dL Normal 3.4-5.0 [facility] Comment on above: Performed By: #### 2 4325-3 ####IRVIN MUNGUIA ([id number])[facility] ([facility])[address] [place] [address] 31254 ALP [Catalytic activity/Vol] 147 U/L High 33-110 [facility] Comment on above: Performed By: #### 2 4324-3 ####IRVIN MUNGUIA ([id number])[facility] ([facility])[address] [place] [address] 78396 ALT With P-5'-P [Catalytic activity/Vol] 22 U/L Normal 7-45 [facility] Comment on above: Result Comment: Evelyn ents treated with Sulfasalazine may generate falsely decreased results for ALT. Performed By: #### 2 4324-3 ####IRVIN MUNGUIA ([id number])[facility] ([facility])[address] [place] [address] 54862 AST With P-5'-P [Catalytic activity/Vol] 21 U/L Normal 9-39 [facility] Comment on above: Performed By: #### 2 4324-3 ####IRVIN MUNGUIA ([id number])[facility] ([facility])[address] [place] [address] 79970 Bilirubin [Mass/Vol] 0.3 mg/dL Normal 0.0-1.[address] [facility] Comment on above: Performed By: #### 2 5-3 ####IRVIN MUNGUIA ([id number])[facility] ([facility])[address] [place] [address] 99780 Bilirubin.direct [Mass/Vol] 0.1 mg/dL Normal 0.0-0.3 [facility] Comment on above: Performed By: #### 2 5-3 ####IRVIN MUNGUIA ([id number])[facility] ([facility])[place] [address] Protein [Mass/Vol] 7.7 g/dL Normal 6.4-8.2 [facility] Comment on above: Performed By: #### 2 4325-3 ####IRVIN MUNGUIA ([id number])[facility] ([facility])[address] [place] [address] 67057 Lactateon 02-27-2024 Lactate [Moles/Vol] 1.9 mmol/L 0.4 - 2. 0 mmol/L [facility] Lactate [Moles/Vol] 1.9 mmol/L Normal 0.4-2.0 [facility] Comment on above: Order Comment: Venip uncture immediately after or during the administration of Metamizole may lead to falsely low results. Testing should be performed immediatelyprior to Metamizole dosing. Performed By: #### 2 524-7 ####IRVIN MUNGUIA ([id number])[facility] ([facility])[address] [place] [address] 14167 Lactate [Moles/Vol]on 2023 Interpretation and review of laboratory results Normal [facility] Venipuncture immediately after or during the administration of Metamizole may lead to falsely low results. Testing should be performed immediately prior to Metamizole dosing. [facility] Lipaseon 02-27-2024 Lipase [Catalytic activity/Vol] 62 U/L 9 - 82 U/L [facility] Lipase [Catalytic activity/V ol]on 02-27-2024 Interpretation and review of laboratory results Normal [facility] Venipuncture immediately after or during the administration of Metamizole may lead to falsely low results. Testing should be performed immediately prior to Metamizole dosing. [facility] No Panel Informationon 02-26 Interpretation and review of laboratory results Abnormal [facility] Triacylglycerol lipaseon Lipase [Catalytic activity/Vol] 62 U/L Normal 9-82 [facility] Comment on above: Order Comment: Venip uncture immediately after or during the administration of Metamizole may lead to falsely low results. Testing should be performed immediately prior to Metamizole dosing. Performed By: #### 3 040-3 ####IRVIN MUNGUIA ([id number])[facility] ([facility])[address] [place] [address] Urinalysis complete W Reflex Culture panel (U)on 02-27-2024 Appearance (U) Clear Clear [facility] Bilirubin (U) [Mass/Vol] Negative NEGATIVE [facility] Color (U) Light-Yellow Light-Yellow , Yellow, Dark-Yellow [facility] Epithelial cells.squamous Auto (Urine sed) [#/Area] 1-9 (SPARSE) Reference range not established. /HPF [facility] Glucose Auto test strip (U) [Mass/Vol] Normal Normal mg/dL [facility] Interpretation and review of laboratory results Abnormal [facility] Ketones (U) [Mass/Vol] TRACE Abnormal NEGATIVE mg/dL [facility] Leukocyte esterase Auto test strip Ql (U) Negative NEGATIVE [facility] Mucus Auto (Urine sed) [#/Area] FEW Reference range not established. /LPF [facility] Nitrite Auto test strip Ql (U) Negative NEGATIVE [facility] pH (U) 6.5 [pH] 5.0, 5.5, 6.0, 6.5, 7.0, 7.5, 8.0 [facility] Protein (U) [Mass/Vol] 30 (1+) Abnormal NEGATIVE, 10 (TRACE), 20 (TRACE) mg/dL [facility] RBC (U) [#/Vol] Negative NEGATIVE [facility] RBC Auto (Urine sed) [#/Area] 1-2 NONE, 1-2, 3-5 /HPF [facility] Specific gravity (U) [Rel density] 1.033 1.005 - 1.035 [facility] Urobilinogen (U) [Mass/Vol] Normal Normal mg/dL [facility] WBC Auto (Urine sed) [#/Area] 1-5 1-5, NONE /HPF [facility] Appearance (U) Clear Normal Clear [facility] Comment on above: Performed By: #### 5 8077-9 ####IRVIN MUNGUIA ([id number])[facility] ([facility])[address] [place] [address] Bilirubin (U) [Mass/Vol] Negative Normal NEGATIVE [facility] Comment on above: Performed By: #### 5 8077-9 ####IRVIN MUNGUIA ([id number])[facility] ([facility])[address] [place] [address] Color (U) Light-Yellow Normal Light-Yellow , Yellow, Dark-Yellow [facility] Comment on above: Performed By: #### 5 8077-9 ####IRVIN MUNGUIA ([id number])[facility] ([facility])[address] [place] [address] Epithelial cells.squamous Auto (Urine sed) [#/Area] 1-9 (SPARSE) Normal Reference range not established. [facility] Comment on above: Performed By: #### 5 8077-9 ####IRVIN MUNGUIA ([id number])[facility] ([facility])[address] [place] [address] Glucose Auto test strip (U) [Mass/Vol] Normal Normal Normal [facility] Comment on above: Performed By: #### 5 8077-9 ####IRVIN MUNGUIA ([id number])[facility] ([facility])[address] [place] [address] Ketones (U) [Mass/Vol] TRACE Abnormal NEGATIVE [facility] Comment on above: Performed By: #### 5 8077-9 ####IRVIN MUNGUIA ([id number])[facility] ([facility])[address] [place], [place] [address] Leukocyte esterase Auto test strip Ql (U) Negative Normal NEGATIVE [facility] Comment on above: Performed By: #### 5 8077-9 ####IRVIN MUNGUIA ([id number])[facility] ([facility])[address] [place], [place] [address] Mucus Auto (Urine sed) [#/Area] FEW Normal Reference range not established. [facility] Comment on above: Performed By: #### 5 8077-9 ####IRVIN MUNGUIA ([id number])[facility] ([facility])[address] [place] [address] 81155 Nitrite Auto test strip Ql (U) Negative Normal NEGATIVE [facility] Comment on above: Performed By: #### 5 8077-9 ####IRVIN MUNGUIA ([id number])[facility] ([facility])[address] [place] [address] 70844 pH (U) 6.5 [pH] Normal 5.0, 5.5, 6.0, 6.5, 7.0, 7.5, 8.0 [facility] Comment on above: Performed By: #### 5 8077-9 ####IRVIN MUNGUIA ([id number])[facility] ([facility])[address] [place] [address] 23529 Protein (U) [Mass/Vol] 30 (1+) Abnormal NEGATIVE, 10 (TRACE), 20 (TRACE) [facility] Comment on above: Performed By: #### 5 8077-9 ####IRVIN MUNGUIA ([id number])[facility] ([facility])[address] [place] [address] 97672 RBC (U) [#/Vol] Negative Normal NEGATIVE [facility] Comment on above: Performed By: #### 5 8077-9 ####IRVIN MUNGUIA ([id number])[facility] ([facility])[address] [place] [address] 34876 RBC Auto (Urine sed) [#/Area] 1-2 Normal NONE, 1-2, 3-5 [facility] Comment on above: Performed By: #### 5 8077-9 ####IRVIN MUNGUIA ([id number])[facility] ([facility])[address] [place] [address] 33147 Specific gravity (U) [Rel density] 1.033 Normal 1.005-1.035 [facility] Comment on above: Performed By: #### 5 8077-9 ####IRVIN MUNGUIA ([id number])[facility] ([facility])[address] [place] [address] 61507 Urobilinogen (U) [Mass/Vol] Normal Normal Normal [facility] Comment on above: Performed By: #### 5 8077-9 ####IRVIN MUNGUIA ([id number])[facility] ([facility])[address] [place] [address] 09722 WBC Auto (Urine sed) [#/Area] 1-5 Normal 1-5, NONE [facility] Comment on above: Performed By: #### 5 8077-9 ####IRVIN MUNGUIA ([id number])[facility] ([facility])[address] [place] [address] 24228 Basic metabolic 2000 panelon 02-21-2024 Anion gap [Moles/Vol] 13 mmol/L Normal 10-20 [facility] Comment on above: Performed By: #### 2 4321-2 ####IRVIN MUNGUIA ([id number])[facility] ([facility])[address] [place] [address] 31716 Calcium [Mass/Vol] 9.0 mg/dL Normal 8.6-10.3 [facility] Comment on above: Performed By: #### 2 4321-2 ####IRVIN MUNGUIA ([id number])[facility] ([facility])[address] [place] [address] 21801 Chloride [Moles/Vol] 99 mmol/L Normal 98-[address] [facility] Comment on above: Performed By: #### 2 4321-2 ####IRVIN MUNGUIA ([id number])[facility] ([facility])[address] [place] [address] 72927 CO2 [Moles/Vol] 27 mmol/L Normal 21-32 [facility] Comment on above: Performed By: #### 2 4321-2 ####IRVIN MUNGUIA ([id number])[facility] ([facility])[address] [place] [address] 55591 Creatinine [Mass/Vol] 0.70 mg/dL Normal 0.50-1.05 [facility] Comment on above: Performed By: #### 2 4321-2 ####IRVIN MUNGUIA ([id number])[facility] ([facility])[address] [place] [address] 66409 GFR/1.73 sq M.predicted MDRD (S/P/Bld) [Vol rate/Area] mL/min/{1.73_m2} Normal >60 [facility] Comment on above: Result Comment: Calc ulations of estimated GFR are performed using the 2020 CKD-EPI Study Refit equation without the race variable for the IDMS-Traceable creatinine methods.https://jasn.asnjournals.org/content/early/ N.9482210522 Performed By: #### 2 4321-2 ####IRVIN MUNGUIA ([id number])[facility] ([facility])[address] [place] [address] 71049 Glucose [Mass/Vol] 162 mg/dL High 74-99 [facility] Comment on above: Performed By: #### 2 4321-2 ####IRVIN MUNGUIA ([id number])[facility] ([facility])[address] [place] [address] 25944 Potassium [Moles/Vol] 3.6 mmol/L Normal 3.5-5.3 [facility] Comment on above: Performed By: #### 2 4321-2 ####IRVIN MUNGUIA ([id number])[facility] ([facility])[address] [place] [address] 93998 Sodium [Moles/Vol] 135 mmol/L Low 136-145 [facility] Comment on above: Performed By: #### 2 4321-2 ####IRVIN MUNGUIA ([id number])[facility] ([facility])[address] [place] [address] 69271 Urea nitrogen [Mass/Vol] 8 mg/dL Normal 6-23 [facility] Comment on above: Performed By: #### 2 4321-2 ####IRVIN MUNGUIA ([id number])[facility] ([facility])[address] [place] [address] 06379 CBC panel Auto (Bld)on 02-20 Erythrocyte distribution width (RBC) [Ratio] 14.1 % Normal 11.5-14.5 [facility] Comment on above: Performed By: #### 5 8410-2 ####IRVIN MUNGUIA ([id number])[facility] ([facility])[address] [place] [address] 57731 Hematocrit (Bld) [Volume fraction] 33.1 % Low 36.0-46.0 [facility] Comment on above: Performed By: #### 5 8410-2 ####IRVIN MUNGUIA ([id number])[facility] ([facility])[address] [place] [address] Hemoglobin (Bld) [Mass/Vol] 10.1 g/dL Low 12.0-16.0 [facility] Comment on above: Performed By: #### 5 8410-2 ####IRVIN MUNGUIA ([id number])[facility] ([facility])[address] [place] [address] 23461 MCH (RBC) [Entitic mass] 27.4 pg Normal 26.0-34.0 [facility] Comment on above: Performed By: #### 5 8410-2 ####IRVIN MUNGUIA ([id number])[facility] ([facility])[address] [place] [address] 12663 MCHC (RBC) [Mass/Vol] 30.5 g/dL Low 32.0-36.0 [facility] Comment on above: Performed By: #### 5 8410-2 ####IRVIN MUNGUIA ([id number])[facility] ([facility])[address] [place] [address] 86009 MCV (RBC) [Entitic vol] 90 fL Normal 80-100 [facility] Comment on above: Performed By: #### 5 8410-2 ####IRVIN MUNGUIA ([id number])[facility] ([facility])[address] [place] [address] 47357 Nucleated RBC/100 WBC (Bld) [Ratio] 0.0 /100 WBCs Normal 0.0-0.0 [facility] Comment on above: Performed By: #### 5 8410-2 ####IRVIN MUNGUIA ([id number])[facility] ([facility])[address] [place] [address] 91199 Platelets (Bld) [#/Vol] 274 x10*3/uL Normal 150-450 [facility] Comment on above: Performed By: #### 5 8410-2 ####IRVIN MUNGUIA ([id number])[facility] ([facility])[address] [place], [place] [address] RBC (Bld) [#/Vol] 3.69 x10*6/uL Low 4.00-5.[address] [facility] Comment on above: Performed By: #### 5 8410-2 ####IRVIN MUNGUIA ([id number])[facility] ([facility])[address] [place] [address] WBC (Bld) [#/Vol] 7.1 x10*3/uL Normal 4.4-11.3 [facility] Comment on above: Performed By: #### 5 8410-2 ####IRVIN MUNGUIA ([id number])[facility] ([facility])[address] [place] [address] Glucose Test strip manual (B ld) [Mass/Vol]on 02-21-2024 Glucose [Mass/Vol] 155 mg/dL High [address] Comment on above: Performed By: #### 2 341-6 ####IRVIN MUNGUIA ([id number])[facility] ([facility])[address] [place] [address] 37531 Glucose [Mass/Vol] 164 mg/dL High 7499 [facility] Comment on above: Performed By: #### 2 341-6 ####IRVIN MUNGUIA ([id number])[facility] ([facility])[address] [place], [place] [address] Glucose [Mass/Vol] 145 mg/dL High [address] Comment on above: Performed By: #### 2 341-6 ####IRVIN MUNGUIA ([id number])[facility] ([facility])[address] [place] [address] Magnesiumon 02-21-2024 Magnesium [Mass/Vol] 1.68 mg/dL Normal 1.60-2.[address] [facility] Comment on above: Performed By: #### 1 9123-9 ####IRVIN MUNGUIA ([id number])[facility] ([facility])[address] [place] [address] CBC panel Auto (Bld)on 02-19 Erythrocyte distribution width (RBC) [Ratio] 13.8 % Normal 11.5-14.5 [facility] Comment on above: Performed By: #### 5 8410-2 ####IRVIN MUNGUIA ([id number])[facility] ([facility])[address] [place], [place] [address] Hematocrit (Bld) [Volume fraction] 31.7 % Low 36.0-46.0 [facility] Comment on above: Performed By: #### 5 8410-2 ####IRVIN MUNGUIA ([id number])[facility] ([facility])[address] [place], [place] [address] Hemoglobin (Bld) [Mass/Vol] 9.9 g/dL Low 12.0-16.0 [facility] Comment on above: Performed By: #### 5 8410-2 ####IRVIN MUNGUIA ([id number])[facility] ([facility])[address] [place] [address] 11211 MCH (RBC) [Entitic mass] 27.8 pg Normal 26.0-34.0 [facility] Comment on above: Performed By: #### 5 8410-2 ####IRVIN MUNGUAI ([id number])[facility] ([facility])[address] [place] [address] 42118 MCHC (RBC) [Mass/Vol] 31.2 g/dL Low 32.0-36.0 [facility] Comment on above: Performed By: #### 5 8410-2 ####IRVIN MUNGUIA ([id number])[facility] ([facility])[address] [place] [address] 59473 MCV (RBC) [Entitic vol] 89 fL Normal 80-100 [facility] Comment on above: Performed By: #### 5 8410-2 ####IRVIN MUNGUIA ([id number])[facility] ([facility])[address] [place] [address] 50584 Nucleated RBC/100 WBC (Bld) [Ratio] 0.0 /100 WBCs Normal 0.0-0.0 [facility] Comment on above: Performed By: #### 5 8410-2 ####IRVIN MUNGUIA ([id number])[facility] ([facility])[address] [place] [address] 02097 Platelets (Bld) [#/Vol] 269 x10*3/uL Normal 150-450 [facility] Comment on above: Performed By: #### 5 8410-2 ####IRVIN MUNGUIA ([id number])[facility] ([facility])[address] [place] [address] 52690 RBC (Bld) [#/Vol] 3.56 x10*6/uL Low 4.00-5.[address] [facility] Comment on above: Performed By: #### 5 8410-2 ####IRVIN MUNGUIA ([id number])[facility] ([facility])[address] [place] [address] 62037 WBC (Bld) [#/Vol] 5.7 x10*3/uL Normal 4.4-11.3 [facility] Comment on above: Performed By: #### 5 8410-2 ####IRVIN MUNGUIA ([id number])[facility] ([facility])[address] [place] [address] 46529 Comprehensive metabolic 2000 panelon 02-20-2024 Albumin BCP dye [Mass/Vol] 3.4 g/dL Normal 3.4-5.0 [facility] Comment on above: Performed By: #### 2 4323-8 ####IRVIN MUNGUIA ([id number])[facility] ([facility])[address] [place] [address] 64867 ALP [Catalytic activity/Vol] 200 U/L High 33-110 [facility] Comment on above: Performed By: #### 2 4323-8 ####IRVIN MUNGUIA ([id number])[facility] ([facility])[address] [place] [address] ALT With P-5'-P [Catalytic activity/Vol] 32 U/L Normal 7-45 [facility] Comment on above: Result Comment: Evelyn ents treated with Sulfasalazine may generate falsely decreased results for ALT. Performed By: #### 2 4323-8 ####IRVIN MUNGUIA ([id number])[facility] ([facility])[address] [place] [address] Anion gap [Moles/Vol] 12 mmol/L Normal 10-20 [facility] Comment on above: Performed By: #### 2 432-8 ####IRVIN MUNGUIA ([id number])[facility] ([facility])[address] [place] [address] 33344 AST With P-5'-P [Catalytic activity/Vol] 17 U/L Normal 9-39 [facility] Comment on above: Performed By: #### 2 432-8 ####IRVIN MUNGUIA ([id number])[facility] ([facility])[address] [place] [address] 90435 Bilirubin [Mass/Vol] 0.3 mg/dL Normal 0.0-1.[address] [facility] Comment on above: Performed By: #### 2 432-8 ####IRVIN MUNGUIA ([id number])[facility] ([facility])[address] [place] [address] 56796 Calcium [Mass/Vol] 8.6 mg/dL Normal 8.6-10.3 [facility] Comment on above: Performed By: #### 2 4323-8 ####IRVIN MUNGUIA ([id number])[facility] ([facility])[address] [place] [address] 80470 Chloride [Moles/Vol] 100 mmol/L Normal 98-[address] [facility] Comment on above: Performed By: #### 2 4323-8 ####IRVIN MUNGUIA ([id number])[facility] ([facility])[address] [place] [address] CO2 [Moles/Vol] 27 mmol/L Normal 21-32 [facility] Comment on above: Performed By: #### 2 4323-8 ####IRVIN MUNGUIA ([id number])[facility] ([facility])[address] [place] [address] 61077 Creatinine [Mass/Vol] 0.60 mg/dL Normal 0.50-1.05 [facility] Comment on above: Performed By: #### 2 4323-8 ####IRVIN MUNGUIA ([id number])[facility] ([facility])[address] [place] [address] 32510 GFR/1.73 sq M.predicted MDRD (S/P/Bld) [Vol rate/Area] mL/min/{1.73_m2} Normal >60 [facility] Comment on above: Result Comment: Calc ulations of estimated GFR are performed using the 2020 CKD-EPI Study Refit equation without the race variable for the IDMS-Traceable creatinine methods.https://jasn.asnjournals.org/content/// N.3384342197 Performed By: #### 2 4323-8 ####IRVIN MUNGUIA ([id number])[facility] ([facility])[address] [place] [address] 31610 Glucose [Mass/Vol] 134 mg/dL High 74-99 [facility] Comment on above: Performed By: #### 2 4323-8 ####IRVIN MUNGUIA ([id number])[facility] ([facility])[address] [place] [address] 95769 Potassium [Moles/Vol] 3.4 mmol/L Low 3.5-5.3 [facility] Comment on above: Performed By: #### 2 4323-8 ####IRVIN MUNGUIA ([id number])[facility] ([facility])[address] [place] [address] 73481 Protein [Mass/Vol] 6.7 g/dL Normal 6.4-8.2 [facility] Comment on above: Performed By: #### 2 4323-8 ####IRVIN MUNGUIA ([id number])[facility] ([facility])[address] [place] [address] 97790 Sodium [Moles/Vol] 136 mmol/L Normal 136-145 [facility] Comment on above: Performed By: #### 2 4323-8 ####IVRIN MUNGUIA ([id number])[facility] ([facility])[address] [place] [address] 95327 Urea nitrogen [Mass/Vol] 8 mg/dL Normal 6-23 [facility] Comment on above: Performed By: #### 2 4323-8 ####IRVIN MUNGUIA ([id number])[facility] ([facility])[address] [place] [address] Glucose Test strip manual (B ld) [Mass/Vol]on 02-20-2024 Glucose [Mass/Vol] 130 mg/dL High [address] [place] [address] Comment on above: Performed By: #### 2 341-6 ####IRVIN MUNGUAI ([id number])[facility] ([facility])[address] [place] [address] 92055 Glucose [Mass/Vol] 131 mg/dL High [address] [place] [address] Comment on above: Performed By: #### 2 341-6 ####IRVIN MUNGUIA ([id number])[facility] ([facility])[address] [place] [address] 81120 Glucose [Mass/Vol] 128 mg/dL High [address] [place] [address] Comment on above: Performed By: #### 2 341-6 ####IRVIN MUNGUIA ([id number])[facility] ([facility])[address] [place] [address] 84352 Glucose [Mass/Vol] 138 mg/dL High [address] [place] [address] Comment on above: Performed By: #### 2 341-6 ####IRVIN MUNGUIA ([id number])[facility] ([facility])[address] [place] [address] 74187 CBC panel Auto (Bld)on 02-18 Erythrocyte distribution width (RBC) [Ratio] 13.7 % Normal 11.5-14.5 [facility] Comment on above: Performed By: #### 5 8410-2 ####IRVIN MUNGUIA ([id number])[facility] ([facility])[address] [place] [address] 31189 Hematocrit (Bld) [Volume fraction] 30.3 % Low 36.0-46.0 [facility] Comment on above: Performed By: #### 5 8410-2 ####IRVIN MUNGUIA ([id number])[facility] ([facility])[address] [place] [address] 73717 Hemoglobin (Bld) [Mass/Vol] 9.3 g/dL Low 12.0-16.0 [facility] Comment on above: Performed By: #### 5 8410-2 ####IRVIN MUNGUIA ([id number])[facility] ([facility])[address] [place] [address] 13104 MCH (RBC) [Entitic mass] 27.6 pg Normal 26.0-34.0 [facility] Comment on above: Performed By: #### 5 8410-2 ####IRVIN MUNGUIA ([id number])[facility] ([facility])[address] [place] [address] 28436 MCHC (RBC) [Mass/Vol] 30.7 g/dL Low 32.0-36.0 [facility] Comment on above: Performed By: #### 5 8410-2 ####IRVIN MUNGUIA ([id number])[facility] ([facility])[address] [place] [address] 73460 MCV (RBC) [Entitic vol] 90 fL Normal 80-100 [facility] Comment on above: Performed By: #### 5 8410-2 ####IRVIN MUNGUIA ([id number])[facility] ([facility])[address] [place] [address] 55219 Nucleated RBC/100 WBC (Bld) [Ratio] 0.0 /100 WBCs Normal 0.0-0.0 [facility] Comment on above: Performed By: #### 5 8410-2 ####IRVIN MUNGUIA ([id number])[facility] ([facility])[address] [place] [address] 76509 Platelets (Bld) [#/Vol] 263 x10*3/uL Normal 150-450 [facility] Comment on above: Performed By: #### 5 8410-2 ####IRVIN MUNGUIA ([id number])[facility] ([facility])[address] [place] [address] RBC (Bld) [#/Vol] 3.37 x10*6/uL Low 4.00-5.[address] [facility] Comment on above: Performed By: #### 5 8410-2 ####IRVIN MUNGUIA ([id number])[facility] ([facility])[address] [place] [address] 24459 WBC (Bld) [#/Vol] 5.4 x10*3/uL Normal 4.4-11.3 [facility] Comment on above: Performed By: #### 5 8410-2 ####IRVIN MUNGUIA ([id number])[facility] ([facility])[address] [place], [place] [address] Comprehensive metabolic 2000 panelon 02-19-2024 Albumin BCP dye [Mass/Vol] 3.2 g/dL Low 3.4-5.0 [facility] Comment on above: Performed By: #### 2 4323-8 ####IRVIN MUNGUIA ([id number])[facility] ([facility])[address] [place] [address] 38797 ALP [Catalytic activity/Vol] 204 U/L High 33-110 [facility] Comment on above: Performed By: #### 2 4323-8 ####IRVIN MUNGUIA ([id number])[facility] ([facility])[address] [place] [address] 36675 ALT With P-5'-P [Catalytic activity/Vol] 39 U/L Normal 7-45 [facility] Comment on above: Result Comment: Evelyn ents treated with Sulfasalazine may generate falsely decreased results for ALT. Performed By: #### 2 4323-8 ####IRVIN MUNGUIA ([id number])[facility] ([facility] [place] [address] Anion gap [Moles/Vol] 11 mmol/L Normal 10-20 [facility] Comment on above: Performed By: #### 2 4323-8 ####IRVIN MUNGUIA ([id number])[facility] ([facility])[address] [place] [address] 07792 AST With P-5'-P [Catalytic activity/Vol] 32 U/L Normal 9-39 [facility] Comment on above: Performed By: #### 2 4323-8 ####IRVIN MUNGUIA ([id number])[facility] ([facility])[address] [place] [address] 11436 Bilirubin [Mass/Vol] 0.3 mg/dL Normal 0.0-1.[address] [facility] Comment on above: Performed By: #### 2 4323-8 ####IRVIN MUNGUIA ([id number])[facility] ([facility])[address] [place] [address] 04962 Calcium [Mass/Vol] 8.0 mg/dL Low 8.6-10.3 [facility] Comment on above: Performed By: #### 2 4323-8 ####IRVIN MUNGUIA ([id number])[facility] ([facility])[address] [place] [address] 82615 Chloride [Moles/Vol] 104 mmol/L Normal 98-[address] [facility] Comment on above: Performed By: #### 2 4323-8 ####IRVIN UMNGUIA ([id number])[facility] ([facility])[address] [place] [address] 67199 CO2 [Moles/Vol] 24 mmol/L Normal 21-32 [facility] Comment on above: Performed By: #### 2 4323-8 ####IRVIN MUNGUIA ([id number])[facility] ([facility])[address] [place] [address] 08745 Creatinine [Mass/Vol] 0.57 mg/dL Normal 0.50-1.05 [facility] Comment on above: Performed By: #### 2 4323-8 ####IRVIN MUNGUIA ([id number])[facility] ([facility])[address] [place] [address] 42642 GFR/1.73 sq M.predicted MDRD (S/P/Bld) [Vol rate/Area] mL/min/{1.73_m2} Normal >60 [facility] Comment on above: Result Comment: Calc ulations of estimated GFR are performed using the 2020 CKD-EPI Study Refit equation without the race variable for the IDMS-Traceable creatinine methods.https://jasn.asnjournals.org/content/early/ N.[id number] Performed By: #### 2 4323-8 ####IRVIN MUNGUIA ([id number])[facility] ([facility])[address] [place] [address] 61279 Glucose [Mass/Vol] 137 mg/dL High 74-99 [facility] Comment on above: Performed By: #### 2 4323-8 ####IRVIN MUNGUIA ([id number])[facility] ([facility])[address] [place] [address] 93854 Potassium [Moles/Vol] 3.3 mmol/L Low 3.5-5.3 [facility] Comment on above: Performed By: #### 2 4323-8 ####IRVIN MUNGUIA ([id number])[facility] ([facility])[address] [place] [address] 35365 Protein [Mass/Vol] 6.3 g/dL Low 6.4-8.2 [facility] Comment on above: Performed By: #### 2 4323-8 ####IRVIN MUNGUIA ([id number])[facility] ([facility])[address] [place] [address] 57755 Sodium [Moles/Vol] 136 mmol/L Normal 136-145 [facility] Comment on above: Performed By: #### 2 4323-8 ####IRVIN MUNGUIA ([id number])[facility] ([facility])[address] [place] [address] 74582 Urea nitrogen [Mass/Vol] 8 mg/dL Normal 6-23 [facility] Comment on above: Performed By: #### 2 4323-8 ####IRVIN MUNGUIA ([id number])[facility] ([facility])[address] [place] [address] 81698 ESR Westergren method (Bld) [Velocity]on 02-19-2024 ESR (Bld) [Velocity] 63 mm/h High 0-[address] [facility] Comment on above: Performed By: #### 4 537-7 ####IRVIN MUNGUIA ([id number])[facility] ([facility])[address] [place] [address] 93891 Glucose Test strip manual (B ld) [Mass/Vol]on 02-19-2024 Glucose [Mass/Vol] 135 mg/dL High 7499 [facility] Comment on above: Performed By: #### 2 341-6 ####IRVIN MUNGUIA ([id number])[facility] ([facility])[address] [place] [address] 74088 Glucose [Mass/Vol] 185 mg/dL High [address] Comment on above: Performed By: #### 2 341-6 ####IRVIN MUNGUIA ([id number])[facility] ([facility])[address] [place] [address] 45922 Glucose [Mass/Vol] 143 mg/dL High 7499 [facility] Comment on above: Performed By: #### 2 341-6 ####IRVIN MUNGUIA ([id number])[facility] ([facility])[address] [place] [address] 87126 Glucose [Mass/Vol] 119 mg/dL High [address] Comment on above: Performed By: #### 2 341-6 ####IRVIN MUNGUIA ([id number])[facility] ([facility])[address] [place] [address] 15543 Triacylglycerol lipaseon Lipase [Catalytic activity/Vol] 27 U/L Normal 9-82 [facility] Comment on above: Order Comment: Venip uncture immediately after or during the administration of Metamizole may lead to falsely low results. Testing should be performed immediately prior to Metamizole dosing. Performed By: #### 3 040-3 ####IRVIN MUNGUIA ([id number])[facility] ([facility])[address] [place] [address] Glucose Test strip manual (B ld) [Mass/Vol]on 02-18-2024 Glucose [Mass/Vol] 151 mg/dL High [address] [place] [address] Comment on above: Performed By: #### 2 341-6 ####IRVIN MUNGUIA ([id number])[facility] ([facility])[address] [place] [address] Glucose [Mass/Vol] 126 mg/dL High [address] [place] [address] Comment on above: Performed By: #### 2 341-6 ####IRVIN MUNGUIA ([id number])[facility] ([facility])[address] [place] [address] 31928 Glucose [Mass/Vol] 163 mg/dL High [address] [place] [address] Comment on above: Performed By: #### 2 341-6 ####IRVIN MUNGUIA ([id number])[facility] ([facility])[address] [place] [address] 46524 Glucose [Mass/Vol] 145 mg/dL High [address] [place] [address] Comment on above: Performed By: #### 2 341-6 ####IRVIN MUNGUIA ([id number])[facility] ([facility])[address] [place] [address] 46241 Amylaseon 02-17-2024 Amylase [Catalytic activity/Vol] 12 U/L Low 29-103 [facility] Comment on above: Performed By: #### 1 798-8 ####IRVIN MUNGUIA ([id number])[facility] ([facility])[address] [place] [address] 53806 CBC panel Auto (Bld)on 02-16 Erythrocyte distribution width (RBC) [Ratio] 13.7 % Normal 11.5-14.5 [facility] Comment on above: Performed By: #### 5 8410-2 ####IRVIN MUNGUIA ([id number])[facility] ([facility])[address] [place] [address] 80750 Hematocrit (Bld) [Volume fraction] 32.0 % Low 36.0-46.0 [facility] Comment on above: Performed By: #### 5 8410-2 ####IRVIN MUNGUIA ([id number])[facility] ([facility])[address] [place] [address] Hemoglobin (Bld) [Mass/Vol] 9.7 g/dL Low 12.0-16.0 [facility] Comment on above: Performed By: #### 5 8410-2 ####IRVIN MUNGUIA ([id number])[facility] ([facility])[address] [place] [address] 13394 MCH (RBC) [Entitic mass] 27.6 pg Normal 26.0-34.0 [facility] Comment on above: Performed By: #### 5 8410-2 ####IRVIN MUNGUIA ([id number])[facility] ([facility])[address] [place] [address] 87262 MCHC (RBC) [Mass/Vol] 30.3 g/dL Low 32.0-36.0 [facility] Comment on above: Performed By: #### 5 8410-2 ####IRVIN MUNGUIA ([id number])[facility] ([facility])[address] [place] [address] 06543 MCV (RBC) [Entitic vol] 91 fL Normal 80-100 [facility] Comment on above: Performed By: #### 5 8410-2 ####IRVIN MUNGUIA ([id number])[facility] ([facility])[address] [place] [address] 69965 Nucleated RBC/100 WBC (Bld) [Ratio] 0.0 /100 WBCs Normal 0.0-0.0 [facility] Comment on above: Performed By: #### 5 8410-2 ####IRVIN MUNGUIA ([id number])[facility] ([facility])[address] [place] [address] 61821 Platelets (Bld) [#/Vol] 267 x10*3/uL Normal 150-450 [facility] Comment on above: Performed By: #### 5 8410-2 ####IRVIN MUNGUIA ([id number])[facility] ([facility])[address] [place] [address] RBC (Bld) [#/Vol] 3.51 x10*6/uL Low 4.00-5.[address] [facility] Comment on above: Performed By: #### 5 8410-2 ####IRVIN MUNGUIA ([id number])[facility] ([facility])[address] [place] [address] WBC (Bld) [#/Vol] 7.1 x10*3/uL Normal 4.4-11.3 [facility] Comment on above: Performed By: #### 5 8410-2 ####IRVIN MUNGUIA ([id number])[facility] ([facility])[address] [place] [address] Comprehensive metabolic 2000 panelon 02-17-2024 Albumin BCP dye [Mass/Vol] 3.3 g/dL Low 3.4-5.0 [facility] Comment on above: Performed By: #### 2 4323-8 ####IRVIN MUNGUIA ([id number])[facility] ([facility])[address] [place] [address] 14075 ALP [Catalytic activity/Vol] 197 U/L High 33-110 [facility] Comment on above: Performed By: #### 2 4323-8 ####IRVIN MUNGUIA ([id number])[facility] ([facility])[address] [place] [address] 07448 ALT With P-5'-P [Catalytic activity/Vol] 43 U/L Normal 7-45 [facility] Comment on above: Result Comment: Evelyn ents treated with Sulfasalazine may generate falsely decreased results for ALT. Performed By: #### 2 4323-8 ####IRVIN MUNGUIA ([id number])[facility] ([facility])[address] [place] [address] 83639 Anion gap [Moles/Vol] 10 mmol/L Normal 10-20 [facility] Comment on above: Performed By: #### 2 4323-8 ####IRVIN MUNGUIA ([id number])[facility] ([facility])[address] [place] [address] 56942 AST With P-5'-P [Catalytic activity/Vol] 56 U/L High 9-39 [facility] Comment on above: Performed By: #### 2 432-8 ####IRVIN MUNGUIA ([id number])[facility] ([facility])[address] [place] [address] 65717 Bilirubin [Mass/Vol] 0.3 mg/dL Normal 0.0-1.[address] [facility] Comment on above: Performed By: #### 2 432-8 ####IRVIN MUNGUIA ([id number])[facility] ([facility])[address] [place] [address] 31400 Calcium [Mass/Vol] 8.4 mg/dL Low 8.6-10.3 [facility] Comment on above: Performed By: #### 2 4323-8 ####IRVIN MUNGUIA ([id number])[facility] ([facility])[address] [place] [address] 06360 Chloride [Moles/Vol] 104 mmol/L Normal 98-[address] [facility] Comment on above: Performed By: #### 2 4323-8 ####IRVIN MUNGUIA ([id number])[facility] ([facility])[address] [place] [address] 26011 CO2 [Moles/Vol] 26 mmol/L Normal 21-32 [facility] Comment on above: Performed By: #### 2 4323-8 ####IRVIN MUNGUIA ([id number])[facility] ([facility])[address] [place] [address] 69995 Creatinine [Mass/Vol] 0.59 mg/dL Normal 0.50-1.05 [facility] Comment on above: Performed By: #### 2 4323-8 ####IRVIN MUNGUIA ([id number])[facility] ([facility])[address] [place] [address] 19715 GFR/1.73 sq M.predicted MDRD (S/P/Bld) [Vol rate/Area] mL/min/{1.73_m2} Normal >60 [facility] Comment on above: Result Comment: Calc ulations of estimated GFR are performed using the 2020 CKD-EPI Study Refit equation without the race variable for the IDMS-Traceable creatinine methods.https://jasn.asnjournals.org/content/early/ N.5246795109 Performed By: #### 2 4323-8 ####IRVIN MUNGUIA ([id number])[facility] ([facility])[address] [place] [address] 60251 Glucose [Mass/Vol] 129 mg/dL High 74-99 [facility] [place] Comment on above: Performed By: #### 2 4323-8 ####IRVIN MUNGUIA ([id number])[facility] ([facility])[address] [place] [address] 21919 Potassium [Moles/Vol] 4.0 mmol/L Normal 3.5-5.3 [facility] Comment on above: Performed By: #### 2 4323-8 ####IRVIN MUNGUIA ([id number])[facility] ([facility])[address] [place] [address] 58142 Protein [Mass/Vol] 6.6 g/dL Normal 6.4-8.2 [facility] [place] Comment on above: Performed By: #### 2 4323-8 ####IRVIN MUNGUIA ([id number])[facility] ([facility])[address] [place] [address] 66700 Sodium [Moles/Vol] 136 mmol/L Normal 136-145 [facility] [place] Comment on above: Performed By: #### 2 4323-8 ####IRVIN MUNGUIA ([id number])[facility] ([facility])[address] [place] [address] 18714 Urea nitrogen [Mass/Vol] 10 mg/dL Normal 03-11 [facility] Comment on above: Performed By: #### 2 4323-8 ####IRVIN MUNGUIA ([id number])[facility] ([facility])[address] [place] [address] 94920 Glucose Test strip manual (B ld) [Mass/Vol]on 02-17-2024 Glucose [Mass/Vol] 147 mg/dL High [address] [place] [address] Comment on above: Performed By: #### 2 341-6 ####IRVIN MUNGUIA ([id number])[facility] ([facility])[address] [place] [address] 35763 Glucose [Mass/Vol] 125 mg/dL High [address] [place] [address] Comment on above: Performed By: #### 2 341-6 ####IRVIN MUNGUIA ([id number])[facility] ([facility])[address] [place] [address] 57126 Glucose [Mass/Vol] 147 mg/dL High [address] [place] [address] Comment on above: Performed By: #### 2 341-6 ####IRVIN MUNGUIA ([id number])[facility] ([facility])[address] [place] [address] 45660 Glucose [Mass/Vol] 119 mg/dL High [facility]99 [facility] [place] Comment on above: Performed By: #### 2 341-6 ####IRVIN MUNGUIA ([id number])[facility] ([facility])[address] [place] [address] 79124 Glucose [Mass/Vol] 148 mg/dL High [address] [place] [address] Comment on above: Performed By: #### 2 341-6 ####IRVIN MUNGUIA ([id number])[facility] ([facility])[address] [place] [address] 08857 Triacylglycerol lipaseon Lipase [Catalytic activity/Vol] 12 U/L Normal 9-82 [facility] Comment on above: Order Comment: Venip uncture immediately after or during the administration of Metamizole may lead to falsely low results. Testing should be performed immediately prior to Metamizole dosing. Performed By: #### 3 040-3 ####IRVIN MUNGUIA ([id number])[facility] ([facility])[address] [place] [address] 00911 Basic metabolic 2000 panelon 02-16-2024 Anion gap [Moles/Vol] 13 mmol/L Normal 10-20 [facility] Comment on above: Performed By: #### 2 4321-2 ####IRVIN MUNGUIA ([id number])[facility] ([facility])[address] [place] [address] 83648 Calcium [Mass/Vol] 8.5 mg/dL Low 8.6-10.3 [facility] [place] Comment on above: Performed By: #### 2 4321-2 ####IRVIN MUNGUIA ([id number])[facility] ([facility])[address] [place] [address] 72189 Chloride [Moles/Vol] 99 mmol/L Normal 98-[address] [facility] Comment on above: Performed By: #### 2 4321-2 ####IRVIN MUNGUIA ([id number])[facility] ([facility])[address] [place] [address] 45892 CO2 [Moles/Vol] 26 mmol/L Normal 21-32 [facility] Comment on above: Performed By: #### 2 4321-2 ####IRVIN MUNGUIA ([id number])[facility] ([facility])[address] [place] [address] 28110 Creatinine [Mass/Vol] 0.69 mg/dL Normal 0.50-1.05 [facility] Comment on above: Performed By: #### 2 4321-2 ####IRVIN MUNGUIA ([id number])[facility] ([facility])[address] [place] [address] 38797 GFR/1.73 sq M.predicted MDRD (S/P/Bld) [Vol rate/Area] mL/min/{1.73_m2} Normal >60 [facility] Comment on above: Result Comment: Calc ulations of estimated GFR are performed using the 2020 CKD-EPI Study Refit equation without the race variable for the IDMS-Traceable creatinine methods.https://jasn.asnjournals.org/content/early/ N.6740930300 Performed By: #### 2 4321-2 ####IRVIN MUNGUIA ([id number])[facility] ([facility])[address] [place] [address] 08144 Glucose [Mass/Vol] 160 mg/dL High 74-99 [facility] [place] Comment on above: Performed By: #### 2 4321-2 ####IRVIN MUNGUIA ([id number])[facility] ([facility])[address] [place] [address] 58612 Potassium [Moles/Vol] 3.9 mmol/L Normal 3.5-5.3 [facility] Comment on above: Performed By: #### 2 4321-2 ####IRVIN MUNGUIA ([id number])[facility] ([facility])[address] [place] [address] 65571 Sodium [Moles/Vol] 134 mmol/L Low 136-145 [facility] [place] Comment on above: Performed By: #### 2 4321-2 ####IRVIN MUNGUIA ([id number])[facility] ([facility])[address] [place] [address] 68618 Urea nitrogen [Mass/Vol] 10 mg/dL Normal 6-23 [facility] Comment on above: Performed By: #### 2 4321-2 ####IRVIN MUNGUIA ([id number])[facility] ([facility])[address] [place] [address] 87513 CBC W Auto Differential pane l (Bld)on 02-16-2024 Basophils (Bld) [#/Vol] 0.06 x10*3/uL Normal 0.00-0.10 [facility] Comment on above: Performed By: #### 5 7021-8 ####IRVIN MUNGUIA ([id number])[facility] ([facility])[address] [place] [address] 53595 Basophils/100 WBC (Bld) 0.6 % Normal 0.0-2.0 [facility] Comment on above: Performed By: #### 7021-8 ####IRVIN MUNGUIA ([id number])[facility] ([facility])[address] [place] [address] 70807 Eosinophils (Bld) [#/Vol] 0.10 x10*3/uL Normal 0.00-0.70 [facility] Comment on above: Performed By: #### 7021-8 ####IRVIN MUNGUIA ([id number])[facility] ([facility])[address] [place] [address] 70585 Eosinophils/100 WBC (Bld) 1.0 % Normal 0.0-6.0 [facility] Comment on above: Performed By: #### 7021-8 ####IRVIN MUNGUIA ([id number])[facility] ([facility])[address] [place] [address] 60287 Erythrocyte distribution width (RBC) [Ratio] 13.9 % Normal 11.5-14.5 [facility] Comment on above: Performed By: #### 5 7021-8 ####IRVIN MUNGUIA ([id number])[facility] ([facility])[address] [place] [address] 20093 Hematocrit (Bld) [Volume fraction] 33.5 % Low 36.0-46.0 [facility] Comment on above: Performed By: #### 7021-8 ####IRVIN MUNGUIA ([id number])[facility] ([facility])[address] [place] [address] 21214 Hemoglobin (Bld) [Mass/Vol] 10.5 g/dL Low 12.0-16.0 [facility] Comment on above: Performed By: #### 7021-8 ####IRVIN MUNGUIA ([id number])[facility] ([facility])[address] [place] [address] 99569 Immature granulocytes (Bld) [#/Vol] 0.05 x10*3/uL Normal 0.00-0.70 [facility] Comment on above: Performed By: #### 5 7021-8 ####IRVIN MUNGUAI ([id number])[facility] ([facility])[address] [place] [address] 22561 Immature granulocytes/100 WBC (Bld) 0.5 % Normal 0.0-0.9 [facility] Comment on above: Result Comment: Debbie ture Granulocyte Count (IG) includes promyelocytes, myelocytes and metamyelocytes but does not include bands. Percent differential counts (%) should be interpreted in the context of the absolute cell counts (cells/UL). Performed By: #### 5 7021-8 ####IRVIN MUNGUIA ([id number])[facility] ([facility])[address] [place] [address] 28361 Lymphocytes (Bld) [#/Vol] 1.32 x10*3/uL Normal 1.20-4.80 [facility] Comment on above: Performed By: #### 5 7021-8 ####IRVIN MUNGUIA ([id number])[facility] ([facility])[address] [place] [address] 85388 Lymphocytes/100 WBC (Bld) 12.9 % Normal 13.0-44.0 [facility] Comment on above: Performed By: #### 5 7021-8 ####IRVIN MUNGUIA ([id number])[facility] ([facility])[address] [place] [address] 20820 MCH (RBC) [Entitic mass] 28.0 pg Normal 26.0-34.0 [facility] Comment on above: Performed By: #### 5 7021-8 ####IRVIN MUNGUIA ([id number])[facility] ([facility])[address] [place] [address] 22145 MCHC (RBC) [Mass/Vol] 31.3 g/dL Low 32.0-36.0 [facility] Comment on above: Performed By: #### 5 7021-8 ####IRVIN MUNGUIA ([id number])[facility] ([facility])[address] [place] [address] 46680 MCV (RBC) [Entitic vol] 89 fL Normal 80-100 [facility] Comment on above: Performed By: #### 5 7021-8 ####IRVIN MUNGUIA ([id number])[facility] ([facility])[address] [place] [address] 78061 Monocytes (Bld) [#/Vol] 0.74 x10*3/uL Normal 0.10-1.00 [facility] Comment on above: Performed By: #### 5 7021-8 ####IRVIN MUNGUIA ([id number])[facility] ([facility])[address] [place] [address] 24295 Monocytes/100 WBC (Bld) 7.2 % Normal 2.0-10.0 [facility] Comment on above: Performed By: #### 5 7021-8 ####IRVIN MUNGUIA ([id number])[facility] ([facility])[address] [place] [address] 78861 Neutrophils (Bld) [#/Vol] 7.97 x10*3/uL High 1.20-7.70 [facility] Comment on above: Result Comment: Perc ent differential counts (%) should be interpreted in the context of the absolute cell counts (cells/uL). Performed By: #### 5 7021-8 ####IRVIN MUNGUIA ([id number])[facility] ([facility])[address] [place] [address] 91494 Neutrophils/100 WBC (Bld) 77.8 % Normal 40.0-80.0 [facility] Comment on above: Performed By: #### 5 7021-8 ####IRVIN MUNGUIA ([id number])[facility] ([facility])[address] [place] [address] 00426 Nucleated RBC/100 WBC (Bld) [Ratio] 0.0 /100 WBCs Normal 0.0-0.0 [facility] Comment on above: Performed By: #### 5 7021-8 ####IRVIN MUNGUIA ([id number])[facility] ([facility])[address] [place] [address] 88188 Platelets (Bld) [#/Vol] 261 x10*3/uL Normal 150-450 [facility] Comment on above: Performed By: #### 5 7021-8 ####IRVIN MUNGUIA ([id number])[facility] ([facility])[address] [place] [address] 79627 RBC (Bld) [#/Vol] 3.75 x10*6/uL Low 4.00-5.[address] [facility] Comment on above: Performed By: #### 5 7021-8 ####IRVIN MUNGUIA ([id number])[facility] ([facility])[address] [place] [address] 15432 WBC (Bld) [#/Vol] 10.2 x10*3/uL Normal 4.4-11.[address] [facility] Comment on above: Performed By: #### 5 7021-8 ####IRVIN MUNGUIA ([id number])[facility] ([facility])[address] [place], [place] [address] Glucose Test strip manual (B ld) [Mass/Vol]on 02-16-2024 Glucose [Mass/Vol] 142 mg/dL High 74-99 [facility] [place] Comment on above: Performed By: #### 2 341-6 ####IRVIN MUNGUIA ([id number])[facility] ([facility])[address] [place], [place] [address] Glucose [Mass/Vol] 128 mg/dL High 74-99 [facility] [place] Comment on above: Performed By: #### 2 341-6 ####IRVIN MUNGUIA ([id number])[facility] ([facility])[address] [place], [place] [address] Lactateon 02-16-2024 Lactate [Moles/Vol] 0.9 mmol/L Normal 0.4-2.0 [facility] Comment on above: Order Comment: Venip uncture immediately after or during the administration of Metamizole may lead to falsely low results. Testing should be performed immediatelyprior to Metamizole dosing. Performed By: #### 2 524-7 ####IRVIN MUNGUIA ([id number])[facility] ([facility])[address] [place] [address] Magnesiumon 02-16-2024 Magnesium [Mass/Vol] 1.81 mg/dL Normal 1.60-2.[address] [facility] Comment on above: Performed By: #### 1 9123-9 ####IRVIN MUNGUIA ([id number])[facility] ([facility])[address] [place] [address] Urinalysis complete W Reflex Culture panel (U)on 02-16-2024 Appearance (U) Clear Normal Clear [facility] Comment on above: Performed By: #### 5 8077-9 ####IRVIN MUNGUIA ([id number])[facility] ([facility])[address] [place] [address] Bilirubin (U) [Mass/Vol] Negative Normal NEGATIVE [facility] Comment on above: Performed By: #### 5 8077-9 ####IRVIN MUNGUIA ([id number])[facility] ([facility])[address] [place] [address] Color (U) Straw Normal Straw, Yellow [facility] Comment on above: Performed By: #### 5 8077-9 ####IRVIN MUNGUIA ([id number])[facility] ([facility])[address] [place] [address] Glucose Auto test strip (U) [Mass/Vol] Negative Normal NEGATIVE [facility] Comment on above: Performed By: #### 5 8077-9 ####IRVIN MUNGUIA ([id number])[facility] ([facility])[address] [place] [address] Ketones (U) [Mass/Vol] Negative Normal NEGATIVE [facility] Comment on above: Performed By: #### 5 8077-9 ####IRVIN MUNGUIA ([id number])[facility] ([facility])[address] [place] [address] Leukocyte esterase Auto test strip Ql (U) Negative Normal NEGATIVE [facility] Comment on above: Performed By: #### 5 8077-9 ####IRVIN MUNGUIA ([id number])[facility] ([facility])[address] [place] [address] 05606 Nitrite Auto test strip Ql (U) Negative Normal NEGATIVE [facility] Comment on above: Performed By: #### 5 8077-9 ####IRVIN MUNGUIA ([id number])[facility] ([facility])[address] [place] [address] pH (U) 7.0 [pH] Normal 5.0, 5.5, 6.0, 6.5, 7.0, 7.5, 8.0 [facility] Comment on above: Performed By: #### 5 8077-9 ####IRVIN MUNGUIA ([id number])[facility] [place] [address] Protein (U) [Mass/Vol] Negative Normal NEGATIVE [facility] Comment on above: Performed By: #### 5 8077-9 ####IRVIN MUNGUIA ([id number])[facility] ([facility])[address] [place] [address] RBC (U) [#/Vol] Negative Normal NEGATIVE [facility] Comment on above: Performed By: #### 5 8077-9 ####IRVIN MUNGUIA ([id number])[facility] ([facility])[address] [place], [place] [address] Specific gravity (U) [Rel density] 1.028 Normal 1.005-1.035 [facility] Comment on above: Performed By: #### 5 8077-9 ####IRVIN MUNGUIA ([id number])[facility] ([facility])[address] [place] [address] 04404 Urobilinogen (U) [Mass/Vol] mg/dL Normal <2.0 [facility] Comment on above: Performed By: #### 5 8077-9 ####RIVIN MUNGUIA ([id number])[facility] ([facility])[address] [place] [address] 69391 Bacteria identifiedon 2023 Bacteria identified Cx Nom (Bld) Normal [facility] Comment on above: Performed By: #### 6 00-7 ####ANDI Cotter ([id number])[facility] ([facility])[address] [place] [address] 75181 Bacteria identified Cx Nom (Bld) Normal [facility] Comment on above: Performed By: #### 6 00-7 ####ANDI Cotter ([id number])[facility] ([facility])[id number] [place] [address] 70183 CBC W Auto Differential pane l (Bld)on 02-15-2024 Basophils (Bld) [#/Vol] 0.04 x10*3/uL Normal 0.00-0.10 [facility] Comment on above: Performed By: #### 5 7021-8 ####IRVIN MUNGUIA ([id number])[facility] ([facility])[address] [place] [address] 09403 Basophils/100 WBC (Bld) 0.3 % Normal 0.0-2.0 [facility] Comment on above: Performed By: #### 5 7021-8 ####IRVIN MUNGUIA ([id number])[facility] ([facility])[address] [place] [address] 87903 Eosinophils (Bld) [#/Vol] 0.08 x10*3/uL Normal 0.00-0.70 [facility] Comment on above: Performed By: #### 5 7021-8 ####IRVIN MUNGUIA ([id number])[facility] ([facility])[address] [place] [address] 76660 Eosinophils/100 WBC (Bld) 0.6 % Normal 0.0-6.0 [facility] Comment on above: Performed By: #### 5 7021-8 ####IRVIN MUNGUIA ([id number])[facility] ([facility])[address] [place] [address] 09538 Erythrocyte distribution width (RBC) [Ratio] 13.9 % Normal 11.5-14.5 [facility] Comment on above: Performed By: #### 5 7021-8 ####IRVIN MUNGUIA ([id number])[facility] ([facility])[address] [place] [address] 48440 Hematocrit (Bld) [Volume fraction] 33.9 % Low 36.0-46.0 [facility] Comment on above: Performed By: #### 5 7021-8 ####IRVIN MUNGUIA ([id number])[facility] ([facility])[address] [place] [address] 33779 Hemoglobin (Bld) [Mass/Vol] 10.6 g/dL Low 12.0-16.0 [facility] Comment on above: Performed By: #### 5 7021-8 ####IRVIN MUNGUIA ([id number])[facility] ([facility])[address] [place] [address] 57042 Immature granulocytes (Bld) [#/Vol] 0.06 x10*3/uL Normal 0.00-0.70 [facility] Comment on above: Performed By: #### 5 7021-8 ####IRVIN MUNGUIA ([id number])[facility] ([facility])[address] [place] [address] 00729 Immature granulocytes/100 WBC (Bld) 0.5 % Normal 0.0-0.9 [facility] Comment on above: Result Comment: Debbie ture Granulocyte Count (IG) includes promyelocytes, myelocytes and metamyelocytes but does not include bands. Percent differential counts (%) should be interpreted in the context of the absolute cell counts (cells/UL). Performed By: #### 5 7021-8 ####IRVIN MUNGUIA ([id number])[facility] ([facility])[address] [place] [address] 86851 Lymphocytes (Bld) [#/Vol] 2.16 x10*3/uL Normal 1.20-4.80 [facility] Comment on above: Performed By: #### 5 7021-8 ####IRVIN MUNGUIA ([id number])[facility] ([facility])[address] [place] [address] 66933 Lymphocytes/100 WBC (Bld) 17.0 % Normal 13.0-44.0 [facility] Comment on above: Performed By: #### 5 7021-8 ####IRVIN MUNGUIA ([id number])[facility] ([facility])[address] [place] [address] 77523 MCH (RBC) [Entitic mass] 27.8 pg Normal 26.0-34.0 [facility] Comment on above: Performed By: #### 5 7021-8 ####IRVIN MUNGUIA ([id number])[facility] ([facility])[address] [place] [address] 51680 MCHC (RBC) [Mass/Vol] 31.3 g/dL Low 32.0-36.0 [facility] Comment on above: Performed By: #### 5 7021-8 ####IRVIN MUNGUIA ([id number])[facility] ([facility])[address] [place] [address] 09280 MCV (RBC) [Entitic vol] 89 fL Normal 80-100 [facility] Comment on above: Performed By: #### 5 7021-8 ####IRVIN MUNGUIA ([id number])[facility] ([facility])[address] [place] [address] 68250 Monocytes (Bld) [#/Vol] 0.82 x10*3/uL Normal 0.10-1.00 [facility] Comment on above: Performed By: #### 5 7021-8 ####IRVIN MUNGUIA ([id number])[facility] ([facility])[address] [place] [address] 20023 Monocytes/100 WBC (Bld) 6.4 % Normal 2.0-10.0 [facility] Comment on above: Performed By: #### 5 7021-8 ####IRVIN MUNGUIA ([id number])[facility] ([facility])[address] [place] [address] 99748 Neutrophils (Bld) [#/Vol] 9.58 x10*3/uL High 1.20-7.70 [facility] Comment on above: Result Comment: Perc ent differential counts (%) should be interpreted in the context of the absolute cell counts (cells/uL). Performed By: #### 5 7021-8 ####IRVIN MUNGUIA ([id number])[facility] ([facility])[address] [place] [address] 84840 Neutrophils/100 WBC (Bld) 75.2 % Normal 40.0-80.0 [facility] Comment on above: Performed By: #### 5 7021-8 ####IRVIN MUNGUIA ([id number])[facility] ([facility])[address] [place] [address] 40038 Nucleated RBC/100 WBC (Bld) [Ratio] 0.0 /100 WBCs Normal 0.0-0.0 [facility] Comment on above: Performed By: #### 5 7021-8 ####IRVIN MUNGUIA ([id number])[facility] ([facility])[address] [place] [address] 17583 Platelets (Bld) [#/Vol] 291 x10*3/uL Normal 150-450 [facility] Comment on above: Performed By: #### 5 7021-8 ####IRVIN MUNGUIA ([id number])[facility] ([facility])[address] [place] [address] 49870 RBC (Bld) [#/Vol] 3.81 x10*6/uL Low 4.00-5.[address] [facility] Comment on above: Performed By: #### 5 7021-8 ####IRVIN MUNGUIA ([id number])[facility] ([facility])[address] [place] [address] 61530 WBC (Bld) [#/Vol] 12.7 x10*3/uL High 4.4-11.[address] [facility] Comment on above: Performed By: #### 5 7021-8 ####IRVIN MUNGUIA ([id number])[facility] ([facility])[address] [place] [address] ABDOMEN PELVIS W IV CONTR Reny 02-15-2024 CT ABDOMEN PELVIS W IV CONTRAST Normal [facility] Comprehensive metabolic 2000 panelon 02-15-2024 Albumin BCP dye [Mass/Vol] 3.6 g/dL Normal 3.4-5.0 [facility] Comment on above: Performed By: #### 2 4323-8 ####IRVIN MUNGUIA ([id number])[facility] ([facility] [place] [address] ALP [Catalytic activity/Vol] 163 U/L High 33-110 [facility] Comment on above: Performed By: #### 2 4323-8 ####IRVIN MUNGUIA ([id number])[facility] ([facility])[address] [place] [address] 54589 ALT With P-5'-P [Catalytic activity/Vol] 26 U/L Normal 7-45 [facility] Comment on above: Result Comment: Evelyn ents treated with Sulfasalazine may generate falsely decreased results for ALT. Performed By: #### 2 4323-8 ####IRVIN MUNGUIA ([id number])[facility] ([facility])[address] [place] [address] 06180 Anion gap [Moles/Vol] 15 mmol/L Normal 10-20 [facility] Comment on above: Performed By: #### 2 4323-8 ####IRVIN MUNGUIA ([id number])[facility] ([facility])[address] [place] [address] AST With P-5'-P [Catalytic activity/Vol] 17 U/L Normal 9-39 [facility] Comment on above: Performed By: #### 2 4323-8 ####IRVIN MUNGUIA ([id number])[facility] ([facility] [place] [address] Bilirubin [Mass/Vol] 0.2 mg/dL Normal 0.0-1.[address] [facility] Comment on above: Performed By: #### 2 4323-8 ####IRVIN MUNGUIA ([id number])[facility] ([facility])[address] [place] [address] Calcium [Mass/Vol] 8.6 mg/dL Normal 8.6-10.3 [facility] [place] Comment on above: Performed By: #### 2 4323-8 ####IRVIN MUNGUIA ([id number])[facility] ([facility])[address] [place] [address]89 Chloride [Moles/Vol] 96 mmol/L Low 98-[address] [facility] Comment on above: Performed By: #### 2 4323-8 ####IRVIN MUNGUIA ([id number])[facility] ([facility])[address] [place] [address] 47505 CO2 [Moles/Vol] 25 mmol/L Normal 21-32 [facility] Comment on above: Performed By: #### 2 4323-8 ####IRIVN MUNGUIA ([id number])[facility] ([facility])[address] [place] [address]4485 Creatinine [Mass/Vol] 0.68 mg/dL Normal 0.50-1.05 [facility] Comment on above: Performed By: #### 2 4323-8 ####IRVIN MUNGUIA ([id number])[facility] ([facility])[address] [place] [address]3220 GFR/1.73 sq M.predicted MDRD (S/P/Bld) [Vol rate/Area] mL/min/{1.73_m2} Normal >60 [facility] Comment on above: Result Comment: Calc ulations of estimated GFR are performed using the 2020 CKD-EPI Study Refit equation without the race variable for the IDMS-Traceable creatinine methods.https://jasn.asnjournals.org/content/early// N.9024443759 Performed By: #### 2 4323-8 ####IRVIN MUNGUIA ([id number])[facility] ([facility])[address] [place] [address]54[address] Glucose [Mass/Vol] 166 mg/dL High 74-99 [facility] Comment on above: Performed By: #### 2 4323-8 ####IRVIN MUNGUIA ([id number])[facility] ([facility])[address] [place] [address] 63050 Potassium [Moles/Vol] 3.6 mmol/L Normal 3.5-5.3 [facility] Comment on above: Performed By: #### 2 4323-8 ####IRVIN MUNGUIA ([id number])[facility] ([facility])[address] [place] [address] 16590 Protein [Mass/Vol] 7.2 g/dL Normal 6.4-8.2 [facility] Comment on above: Performed By: #### 2 4323-8 ####IRVIN MUNGUIA ([id number])[facility] ([facility])[address] [place] [address]106 Sodium [Moles/Vol] 132 mmol/L Low 136-145 [facility] [place] Comment on above: Performed By: #### 2 4323-8 ####IRVIN MUNGUIA ([id number])[facility] ([facility])[address] [place] [address] 59086 Urea nitrogen [Mass/Vol] 12 mg/dL Normal 6- [facility] Comment on above: Performed By: #### 2 4323-8 ####IRVIN MUNGUIA ([id number])[facility] ([facility])[address] [place] [address] 01422 ECG 12-LEADon 02-15-2024 ECG 12-LEAD Ventricular Rate 102 Atrial Rate 102 P-R Interval 140 QRS Duration 84 Q-T Interval 346 QTC Calculation(Bazett) 450 P [place] 52 R [place] 27 T [place] 61 QRS Count 17 Q Onset 225 P Onset 155 P Offset 209 T Offset 398 QTC Fredericia 412 Diagnosis Sinus tachycardia Otherwise normal ECG When compared with ECG of 04-FEB-2024 18:58, No significant change was found See ED provider note for full interpretation and clinical correlation Confirmed by Sally Bourgeois ([id number]) on 02/18/2024 8:59:01 PM Normal [facility] LABORATORYOrdered By: Huber Estevez on 02-15-2024 Albumin DL <= 20 mg/L (U) [Mass/Vol] 591 mcg/dL Invalid Interpretation Code AO ADM SS Albumin/Creatinine DL <= 20 mg/L (U) [Mass ratio] 8 mcg/mg Normal 0 - 30 mcg/mg AO ADM SS Creatinine (U) [Mass/Vol] 75.9 mg/dL Normal 28.0 - 117.0 mg/dL AO ADM SS Lactateon 02-15-2024 Lactate [Moles/Vol] 2.0 mmol/L Normal 0.4-2.0 [facility] Comment on above: Order Comment: Venip uncture immediately after or during the administration of Metamizole may lead to falsely low results. Testing should be performed immediatelyprior to Metamizole dosing. Performed By: #### 2 524-7 ####IRVIN MUNGUIA ([id number])[facility] ([facility])[address] [place] [address] MALBRon 02-15-2024 U Creatinine 75.9 mg/dL Normal 28.0-117.0 [facility] ([place]) Comment on above: Performed By: #### A DIFF, ANEU, CMP, MG, GFR, LD, CRP, CBC, ESR #### [address] [address] U Microalb 591 mcg/dL Normal [facility] ([place]) Comment on above: Performed By: #### A DIFF, ANEU, CMP, MG, GFR, LD, CRP, CBC, ESR #### [address] [address] U Ratio Alb/Cre 8 mcg/mg Normal 0-30 [facility] ([place]) Comment on above: Performed By: #### A DIFF, ANEU, CMP, MG, GFR, LD, CRP, CBC, ESR #### [address] [address] Magnesiumon 02-15-2024 Magnesium [Mass/Vol] 1.80 mg/dL Normal 1.60-2.[address] [facility] Comment on above: Performed By: #### 1 9123-9 ####IRVIN MUNGUIA ([id number])[facility] ([facility])[address] [place] [address] 29368 Triacylglycerol lipaseon Lipase [Catalytic activity/Vol] 42 U/L Normal 9-82 [facility] Comment on above: Order Comment: Venip uncture immediately after or during the administration of Metamizole may lead to falsely low results. Testing should be performed immediately prior to Metamizole dosing. Performed By: #### 3 040-3 ####BRYAN EZRA ([id number])[facility] ([facility])[address] [place] [address] XR CHEST 1 VIEWon 02-15-2024 XR CHEST 1 VIEW Normal [facility] CBC W Auto Differential pane l (Bld)on 02-08-2024 Basophils (Bld) [#/Vol] 0.03 x10*3/uL Normal 0.00-0.10 [facility] Comment on above: Performed By: #### 5 7021-8 ####NADI Cotter ([id number])[facility] ([facility])[address] [place] [address] Basophils/100 WBC (Bld) 0.4 % Normal 0.0-2.0 [facility] Comment on above: Performed By: #### 5 7021-8 ####ANDI Cotter ([id number])[facility] ([facility])[address] [place] [address] Eosinophils (Bld) [#/Vol] 0.24 x10*3/uL Normal 0.00-0.70 [facility] Comment on above: Performed By: #### 5 7021-8 ####ANDI Cotter ([id number])[facility] ([facility])[address] [place] [address] Eosinophils/100 WBC (Bld) 3.1 % Normal 0.0-6.0 [facility] Comment on above: Performed By: #### 5 7021-8 ####ANDI Cotter ([id number])[facility] ([facility])[address] [place] [address] Erythrocyte distribution width (RBC) [Ratio] 13.4 % Normal 11.5-14.5 [facility] Comment on above: Performed By: #### 5 7021-8 ####ANDI Cotter ([id number])[facility] ([facility])[address] [place] [address] Hematocrit (Bld) [Volume fraction] 29.9 % Low 36.0-46.0 [facility] Comment on above: Performed By: #### 5 7021-8 ####ANDI CHAUDHARY L ([id number])[facility] ([facility])[address] [place] [address] Hemoglobin (Bld) [Mass/Vol] 9.4 g/dL Low 12.0-16.0 [facility] Comment on above: Performed By: #### 5 7021-8 ####ANDI Cotter ([id number])[facility] ([facility])[address] [place] [address] Immature granulocytes (Bld) [#/Vol] 0.26 x10*3/uL Normal 0.00-0.70 [facility] Comment on above: Performed By: #### 5 7021-8 ####ANDI Cotter ([id number])[facility] ([facility])[address] [place] [address] Immature granulocytes/100 WBC (Bld) 3.4 % High 0.0-0.9 [facility] Comment on above: Result Comment: Debbie ture Granulocyte Count (IG) includes promyelocytes, myelocytes and metamyelocytes but does not include bands. Percent differential counts (%) should be interpreted in the context of the absolute cell counts (cells/UL). Performed By: #### 5 7021-8 ####ANDI CHAUDHARY L ([id number])[facility] ([facility])[address] [place] [address] Lymphocytes (Bld) [#/Vol] 1.63 x10*3/uL Normal 1.20-4.80 [facility] Comment on above: Performed By: #### 5 7021-8 ####ANDI Cotter ([id number])[facility] ([facility])[address] [place] [address] Lymphocytes/100 WBC (Bld) 21.3 % Normal 13.0-44.0 [facility] Comment on above: Performed By: #### 5 7021-8 ####ANDI Cotter ([id number])[facility] ([facility])[address] [place] [address] MCH (RBC) [Entitic mass] 28.3 pg Normal 26.0-34.0 [facility] Comment on above: Performed By: #### 5 7021-8 ####ANDI Cotter ([id number])[facility] ([facility])[address] [place] [address] MCHC (RBC) [Mass/Vol] 31.4 g/dL Low 32.0-36.0 [facility] Comment on above: Performed By: #### 5 7021-8 ####ANDI Cotter ([id number])[facility] ([facility])[address] [place] [address] MCV (RBC) [Entitic vol] 90 fL Normal 80-100 [facility] Comment on above: Performed By: #### 5 7021-8 ####ANDI Cotter ([id number])[facility] ([facility])[address] [place] [address] Monocytes (Bld) [#/Vol] 0.66 x10*3/uL Normal 0.10-1.00 [facility] Comment on above: Performed By: #### 5 7021-8 ####ANDI Cotter ([id number])[facility] ([facility])[address] [place] [address] Monocytes/100 WBC (Bld) 8.6 % Normal 2.0-10.0 [facility] Comment on above: Performed By: #### 5 7021-8 ####ANDI Cotter ([id number])[facility] ([facility])[address] [place] [address] Neutrophils (Bld) [#/Vol] 4.83 x10*3/uL Normal 1.20-7.70 [facility] Comment on above: Result Comment: Perc ent differential counts (%) should be interpreted in the context of the absolute cell counts (cells/uL). Performed By: #### 5 7021-8 ####ANDI Cotter ([id number])[facility] ([facility])[address] [place] [address] Neutrophils/100 WBC (Bld) 63.2 % Normal 40.0-80.0 [facility] Comment on above: Performed By: #### 5 7021-8 ####ANDI Cotter ([id number])[facility] ([facility])[address] [place] [address] Nucleated RBC/100 WBC (Bld) [Ratio] 0.0 /100 WBCs Normal 0.0-0.0 [facility] Comment on above: Performed By: #### 5 7021-8 ####ANDI Cotter ([id number])[facility] ([facility])[address] [place] [address] Platelets (Bld) [#/Vol] 329 x10*3/uL Normal 150-450 [facility] Comment on above: Performed By: #### 5 7021-8 ####ANDI Cotter ([id number])[facility] ([facility])[address] [place] [address] RBC (Bld) [#/Vol] 3.32 x10*6/uL Low 4.00-5.[address] [facility] Comment on above: Performed By: #### 5 7021-8 ####ANDI Cotter ([id number])[facility] ([facility])[address] [place] [address] WBC (Bld) [#/Vol] 7.7 x10*3/uL Normal 4.4-11.3 [facility] Comment on above: Performed By: #### 5 7021-8 ####ANDI Cotter ([id number])[facility] ([facility])[address] [place] [address] Clostridioides difficile tox in A+B tcdA+tcdB geneson 02-08-2024 C. difficile toxin A+B tcdA+tcdB genes SANNA+probe Ql (Stl) Clostridioides difficile toxin A+B tcdA+tcdB genes Not Detected Normal Not Detected [facility] Comment on above: Order Comment: This test [...] Performed By: #### 8 0685-1 ####ANDI Cotter ([id number])[facility] ([facility])[address] [place] [address] Comprehensive metabolic 2000 panelon 02-08-2024 Albumin BCP dye [Mass/Vol] 3.4 g/dL Normal 3.4-5.0 [facility] Comment on above: Performed By: #### 2 4323-8 ####ANDI Cotter ([id number])[facility] ([facility])[address] [place] [address] ALP [Catalytic activity/Vol] 168 U/L High 33-110 [facility] Comment on above: Performed By: #### 2 4323-8 ####ANDI Cotter ([id number])[facility] ([facility])[address] [place] [address] ALT With P-5'-P [Catalytic activity/Vol] 37 U/L Normal 7-45 [facility] Comment on above: Result Comment: Evelyn ents treated with Sulfasalazine may generate falsely decreased results for ALT. Performed By: #### 2 4323-8 ####ANDI Cotter ([id number])[facility] ([facility])[address] [place] [address] Anion gap [Moles/Vol] 14 mmol/L Normal 10-20 [facility] Comment on above: Performed By: #### 2 4323-8 ####ANDI Cotter ([id number])[facility] ([facility])[address] [place] [address] AST With P-5'-P [Catalytic activity/Vol] 19 U/L Normal 9-39 [facility] Comment on above: Performed By: #### 2 4323-8 ####ANDI Cotter ([id number])[facility] ([facility])[address] [place] [address] Bilirubin [Mass/Vol] 0.2 mg/dL Normal 0.0-1.[address] [facility] Comment on above: Performed By: #### 2 4323-8 ####ANDI Cotter ([id number])[facility] ([facility])[address] [place] [address] Calcium [Mass/Vol] 9.1 mg/dL Normal 8.6-10.6 [facility] Comment on above: Performed By: #### 2 4323-8 ####ANDI Cotter ([id number])[facility] ([facility])[address] [place] [address] Chloride [Moles/Vol] 99 mmol/L Normal 98-[address] [facility] Comment on above: Performed By: #### 2 4323-8 ####ANDI Cotter ([id number])[facility] ([facility])[address] [place] [address] CO2 [Moles/Vol] 28 mmol/L Normal 21-32 [facility] Comment on above: Performed By: #### 2 4323-8 ####ANDI Cotter ([id number])[facility] ([facility])[address] [place] [address] Creatinine [Mass/Vol] 0.69 mg/dL Normal 0.50-1.05 [facility] Comment on above: Performed By: #### 2 4323-8 ####ANDI Cotter ([id number])[facility] ([facility])[address] [place] [address] GFR/1.73 sq M.predicted MDRD (S/P/Bld) [Vol rate/Area] mL/min/{1.73_m2} Normal >60 [facility] Comment on above: Result Comment: Calc ulations of estimated GFR are performed using the 2020 CKD-EPI Study Refit equation without the race variable for the IDMS-Traceable creatinine methods.https://jasn.asnjournals.org/content/early// N.3762735274 Performed By: #### 2 4323-8 ####ANDI Cotter ([id number])[facility] ([facility])[address] [place] [address] Glucose [Mass/Vol] 160 mg/dL High 74-99 [facility] Comment on above: Performed By: #### 2 4323-8 ####ANDI Cotter ([id number])[facility] ([facility])[address] [place] [address] Potassium [Moles/Vol] 3.7 mmol/L Normal 3.5-5.3 [facility] Comment on above: Performed By: #### 2 4323-8 ####ANDI Cotter ([id number])[facility] ([facility])[address] [place] [address] Protein [Mass/Vol] 7.0 g/dL Normal 6.4-8.2 [facility] Comment on above: Performed By: #### 2 4323-8 ####ANDI CHAUDHARY L ([id number])[facility] ([facility])[address] [place] [address] Sodium [Moles/Vol] 137 mmol/L Normal 136-145 [facility] Comment on above: Performed By: #### 2 4323-8 ####ANDI CHAUDHARY L ([id number])[facility] ([facility])[address] [place] [address] Urea nitrogen [Mass/Vol] 9 mg/dL Normal 6-23 [facility] Comment on above: Performed By: #### 2 4323-8 ####ANDI Cotter ([id number])[facility] ([facility])[address] [place] [address] Gastrointestinal pathogens i dentifiedon 02-08-2024 Gastrointestinal pathogens identified SANNA+probe Nom (Stl) Normal Not Detected [facility] Comment on above: Performed By: #### 7 9390-1 ####ANDI Cotter ([id number])[facility] ([facility])[address] [place] [address] Glucose Test strip manual (B ld) [Mass/Vol]on 02-08-2024 Glucose [Mass/Vol] 158 mg/dL High 74-99 [facility] Comment on above: Performed By: #### 2 341-6 ####ANDI Cotter ([id number])[facility] ([facility])[address] [place] [address] Glucose [Mass/Vol] 159 mg/dL High 74-99 [facility] Comment on above: Performed By: #### 2 341-6 ####ANDI Cotter ([id number])[facility] ([facility])[address] [place] [address] Magnesiumon 02-08-2024 Magnesium [Mass/Vol] 1.88 mg/dL Normal 1.60-2.[address] [facility] Comment on above: Performed By: #### 1 9123-9 ####ANDI Cotter ([id number])[facility] ([facility])[address] [place] [address] CBC W Auto Differential pane l (Bld)on 02-07-2024 Basophils (Bld) [#/Vol] 0.07 x10*3/uL Normal 0.00-0.10 [facility] Comment on above: Performed By: #### 5 7021-8 ####ANDI Cotter ([id number])[facility] ([facility])[address] [place] [address] Basophils/100 WBC (Bld) 0.6 % Normal 0.0-2.0 [facility] Comment on above: Performed By: #### 5 7021-8 ####ANDI Cotter ([id number])[facility] ([facility])[address] [place] [address] Eosinophils (Bld) [#/Vol] 0.25 x10*3/uL Normal 0.00-0.70 [facility] Comment on above: Performed By: #### 5 7021-8 ####ANDI Cotter ([id number])[facility] ([facility])[address] [place] [address] Eosinophils/100 WBC (Bld) 2.0 % Normal 0.0-6.0 [facility] Comment on above: Performed By: #### 5 7021-8 ####ANDI Cotter ([id number])[facility] ([facility])[address] [place] [address] Erythrocyte distribution width (RBC) [Ratio] 13.5 % Normal 11.5-14.5 [facility] Comment on above: Performed By: #### 5 7021-8 ####ANDI Cotter ([id number])[facility] ([facility])[address] [place] [address] Hematocrit (Bld) [Volume fraction] 30.9 % Low 36.0-46.0 [facility] Comment on above: Performed By: #### 5 7021-8 ####ANDI Cotter ([id number])[facility] ([facility])[address] [place] [address] Hemoglobin (Bld) [Mass/Vol] 10.0 g/dL Low 12.0-16.0 [facility] Comment on above: Performed By: #### 5 7021-8 ####ANDI Cotter ([id number])[facility] ([facility])[address] [place] [address] Immature granulocytes (Bld) [#/Vol] 0.20 x10*3/uL Normal 0.00-0.70 [facility] Comment on above: Performed By: #### 5 7021-8 ####ANDI Cotter ([id number])[facility] ([facility])[address] [place] [address] Immature granulocytes/100 WBC (Bld) 1.6 % High 0.0-0.9 [facility] Comment on above: Result Comment: Debbie ture Granulocyte Count (IG) includes promyelocytes, myelocytes and metamyelocytes but does not include bands. Percent differential counts (%) should be interpreted in the context of the absolute cell counts (cells/UL). Performed By: #### 5 7021-8 ####ANDI Cotter ([id number])[facility] ([facility])[address] [place] [address] Lymphocytes (Bld) [#/Vol] 1.77 x10*3/uL Normal 1.20-4.80 [facility] Comment on above: Performed By: #### 5 7021-8 ####ANDI Cotter ([id number])[facility] ([facility])[address] [place] [address] Lymphocytes/100 WBC (Bld) 14.0 % Normal 13.0-44.0 [facility] Comment on above: Performed By: #### 5 7021-8 ####ANDI Cotter ([id number])[facility] ([facility])[address] [place] [address] MCH (RBC) [Entitic mass] 28.3 pg Normal 26.0-34.0 [facility] Comment on above: Performed By: #### 5 7021-8 ####ANDI Cotter (34489)[facility] ([facility])[address] [place] [address] MCHC (RBC) [Mass/Vol] 32.4 g/dL Normal 32.0-36.0 [facility] Comment on above: Performed By: #### 5 7021-8 ####ANDI Cotter ([id number])[facility] ([facility])[address] [place] [address] MCV (RBC) [Entitic vol] 88 fL Normal 80-100 [facility] Comment on above: Performed By: #### 5 7021-8 ####NADI Cotter ([id number])[facility] ([facility])[address] [place] [address] Monocytes (Bld) [#/Vol] 0.87 x10*3/uL Normal 0.10-1.00 [facility] Comment on above: Performed By: #### 5 7021-8 ####ANDI Cotter ([id number])[facility] ([facility])[address] [place] [address] Monocytes/100 WBC (Bld) 6.9 % Normal 2.0-10.0 [facility] Comment on above: Performed By: #### 5 7021-8 ####ANDI Cotter ([id number])[facility] ([facility])[address] [place] [address] Neutrophils (Bld) [#/Vol] 9.44 x10*3/uL High 1.20-7.70 [facility] Comment on above: Result Comment: Perc ent differential counts (%) should be interpreted in the context of the absolute cell counts (cells/uL). Performed By: #### 5 7021-8 ####ANDI Cotter ([id number])[facility] ([facility])[address] [place] [address] Neutrophils/100 WBC (Bld) 74.9 % Normal 40.0-80.0 [facility] Comment on above: Performed By: #### 5 7021-8 ####ANDI Cotter ([id number])[facility] ([facility])[address] [place] [address] Nucleated RBC/100 WBC (Bld) [Ratio] 0.0 /100 WBCs Normal 0.0-0.0 [facility] Comment on above: Performed By: #### 5 7021-8 ####ANDI Cotter (19755)[facility] ([facility])[address] [place] [address] Platelets (Bld) [#/Vol] 338 x10*3/uL Normal 150-450 [facility] Comment on above: Performed By: #### 5 7021-8 ####ANDI Cotter (99903)[facility] ([facility])[address] [place] [address] RBC (Bld) [#/Vol] 3.53 x10*6/uL Low 4.00-5.[address] [facility] Comment on above: Performed By: #### 5 7021-8 ####ANDI Cotter ([id number])[facility] ([facility])[id number] [place] [id number] WBC (Bld) [#/Vol] 12.6 x10*3/uL High 4.4-11.[address] [facility] Comment on above: Performed By: #### 5 7021-8 ####ANDI Cottre ([id number])[facility] ([facility])[address] [place] [address] Comprehensive metabolic 2000 panelon 02-07-2024 Albumin BCP dye [Mass/Vol] 3.5 g/dL Normal 3.4-5.0 [facility] Comment on above: Performed By: #### 2 4323-8 ####ANDI Cotter ([id number])[facility] ([facility])[address] [place] [address] ALP [Catalytic activity/Vol] 181 U/L High 33-110 [facility] Comment on above: Performed By: #### 2 4323-8 ####ANDI CHAUDHARY L ([id number])[facility] ([facility])[address] [place] [address] ALT With P-5'-P [Catalytic activity/Vol] 46 U/L High 7-45 [facility] Comment on above: Result Comment: Evelyn ents treated with Sulfasalazine may generate falsely decreased results for ALT. Performed By: #### 2 4323-8 ####ANDI Cotter ([id number])[facility] ([facility])[address] [place] [address] Anion gap [Moles/Vol] 16 mmol/L Normal 10-20 [facility] Comment on above: Performed By: #### 2 4323-8 ####ANDI Cotter ([id number])[facility] ([facility])[address] [place] [address] AST With P-5'-P [Catalytic activity/Vol] 30 U/L Normal 9-39 [facility] Comment on above: Performed By: #### 2 4323-8 ####ANDI Cotter ([id number])[facility] ([facility])[address] [place] [address] Bilirubin [Mass/Vol] 0.3 mg/dL Normal 0.0-1.[address] [facility] Comment on above: Performed By: #### 2 4323-8 ####ANDI Cotter ([id number])[facility] ([facility])[address] [place] [address] Calcium [Mass/Vol] 9.1 mg/dL Normal 8.6-10.6 [facility] Comment on above: Performed By: #### 2 4323-8 ####ANDI Cotter ([id number])[facility] ([facility])[address] [place] [address] Chloride [Moles/Vol] 97 mmol/L Low 98-[address] [facility] Comment on above: Performed By: #### 2 4323-8 ####ANDI Cotter ([id number])[facility] ([facility])[address] [place] [address] CO2 [Moles/Vol] 26 mmol/L Normal 21-32 [facility] Comment on above: Performed By: #### 2 4323-8 ####ANDI CHAUDHARY L ([id number])[facility] ([facility])[address] [place] [address] Creatinine [Mass/Vol] 0.73 mg/dL Normal 0.50-1.05 [facility] Comment on above: Performed By: #### 2 4323-8 ####ANDI Cotter ([id number])[facility] ([facility])[address] [place] [address] GFR/1.73 sq M.predicted MDRD (S/P/Bld) [Vol rate/Area] mL/min/{1.73_m2} Normal >60 [facility] Comment on above: Result Comment: Calc ulations of estimated GFR are performed using the 2020 CKD-EPI Study Refit equation without the race variable for the IDMS-Traceable creatinine methods.https://jasn.asnjournals.org/content/early/ N.9706527490 Performed By: #### 2 4323-8 ####ANDI Cotter ([id number])[facility] ([facility])[address] [place] [address] Glucose [Mass/Vol] 157 mg/dL High 74-99 [facility] Comment on above: Performed By: #### 2 4323-8 ####ANDI Cotter ([id number])[facility] ([facility])[address] [place] [address] Potassium [Moles/Vol] 3.8 mmol/L Normal 3.5-5.3 [facility] Comment on above: Performed By: #### 2 4323-8 ####ANDI Cotter ([id number])[facility] ([facility])[address] [place] [address] Protein [Mass/Vol] 7.7 g/dL Normal 6.4-8.2 [facility] Comment on above: Performed By: #### 2 4323-8 ####ANDI Cotter ([id number])[facility] ([facility])[address] [place] [address] Sodium [Moles/Vol] 135 mmol/L Low 136-145 [facility] Comment on above: Performed By: #### 2 4323-8 ####ANDI Cotter ([id number])[facility] ([facility])[address] [place] [address] Urea nitrogen [Mass/Vol] 10 mg/dL Normal - [facility] Comment on above: Performed By: #### 2 4323-8 ####ANDI Cotter ([id number])[facility] ([facility])[address] [place] [address] Glucose Test strip manual (B ld) [Mass/Vol]on 02-07-2024 Glucose [Mass/Vol] 121 mg/dL High 74-99 [facility] Comment on above: Performed By: #### 2 341-6 ####ANDI Ctoter ([id number])[facility] ([facility])[address] [place] [address] Glucose [Mass/Vol] 170 mg/dL High 74-99 [facility] Comment on above: Performed By: #### 2 341-6 ####ANDI Cotter ([id number])[facility] ([facility])[address] [place] [address] Glucose [Mass/Vol] 177 mg/dL High [address] [place] [address] Comment on above: Performed By: #### 2 341-6 ####ANDI Cotter ([id number])[facility] ([facility])[address] [place] [address]84 Glucose [Mass/Vol] 160 mg/dL High 74-99 [facility] Comment on above: Performed By: #### 2 341-6 ####ANDI Cotter ([id number])[facility] ([facility])[address] [place] [address] Heparin.unfractionatedon Heparin unfractionated Chromogenic method Qn (PPP) 0.4 IU/mL Normal See Comment Below for Therapeutic Ranges [facility] Comment on above: Order Comment: The t herapeutic reference range for UFH may be either 0.3-0.6 IU/mL or 0.3-0.7 IU/mL based on the clinical setting for anticoagulant therapy and the associated nomogram used. For Heparin dosing guidelines based on clinical scenario and Heparin Assay results, please refer to local Pharmacy and [facility] Guidelines for Anticoagulation Therapy available on the [facility] intranet at: https://[email or web address]/Pharmacy/Pages/[facility]_Guidelines_for_Anticoagu.aspx Performed By: #### 3 274-8 ####ANDI Cotter ([id number])[facility] ([facility])[address] [place] [address] Heparin unfractionated Chromogenic method Qn (PPP) 0.1 IU/mL Normal See Comment Below for Therapeutic Ranges [facility] Comment on above: [...] results, please refer to local Pharmacy and [facility] Guidelines for Anticoagulation Therapy available on the [facility] intranet at: https://[email or web address]/Pharmacy/Pages/[facility]_Guidelines_for_Anticoagu.aspx Performed By: #### 3 274-8 ####ANDI Cotter ([id number])[facility] ([facility])[address] [place] [address] Magnesiumon 02-07-2024 Magnesium [Mass/Vol] 1.92 mg/dL Normal 1.60-2.[address] [facility] Comment on above: Performed By: #### 1 9123-9 ####ANDI Cotter ([id number])[facility] ([facility])[address] [place] [address] CBC W Auto Differential pane l (Bld)on 02-06-2024 Basophils (Bld) [#/Vol] 0.05 x10*3/uL Normal 0.00-0.10 [facility] Comment on above: Performed By: #### 5 7021-8 ####ANDI Cotter ([id number])[facility] ([facility])[address] [place] [address] Basophils/100 WBC (Bld) 0.4 % Normal 0.0-2.0 [facility] Comment on above: Performed By: #### 5 7021-8 ####ANDI Cotter ([id number])[facility] ([facility])[address] [place] [address] Eosinophils (Bld) [#/Vol] 0.25 x10*3/uL Normal 0.00-0.70 [facility] Comment on above: Performed By: #### 5 7021-8 ####ANDI Cotter ([id number])[facility] ([facility])[address] [place] [address] 227[address] Eosinophils/100 WBC (Bld) 2.2 % Normal 0.0-6.0 [facility] Comment on above: Performed By: #### 5 7021-8 ####ANDI Cotter ([id number])[facility] ([facility])[address] [place] [address] Erythrocyte distribution width (RBC) [Ratio] 13.5 % Normal 11.5-14.5 [facility] Comment on above: Performed By: #### 5 7021-8 ####ANDI Cotter ([id number])[facility] ([facility])[address] [place] [address] Hematocrit (Bld) [Volume fraction] 33.1 % Low 36.0-46.0 [facility] Comment on above: Performed By: #### 5 7021-8 ####ANDI Cotter ([id number])[facility] ([facility])[address] [place] [address] Hemoglobin (Bld) [Mass/Vol] 10.4 g/dL Low 12.0-16.0 [facility] Comment on above: Performed By: #### 5 7021-8 ####ANDI Cotter ([id number])[facility] ([facility])[address] [place] [address] Immature granulocytes (Bld) [#/Vol] 0.23 x10*3/uL Normal 0.00-0.70 [facility] Comment on above: Performed By: #### 5 7021-8 ####ANDI Cotter (06091)[facility] ([facility])[address] [place] [address] Immature granulocytes/100 WBC (Bld) 2.1 % High 0.0-0.9 [facility] Comment on above: Result Comment: Debbie ture Granulocyte Count (IG) includes promyelocytes, myelocytes and metamyelocytes but does not include bands. Percent differential counts (%) should be interpreted in the context of the absolute cell counts (cells/UL). Performed By: #### 5 7021-8 ####ANDI Cotter ([id number])[facility] ([facility])[address] [place] [address] Lymphocytes (Bld) [#/Vol] 2.00 x10*3/uL Normal 1.20-4.80 [facility] Comment on above: Performed By: #### 5 7021-8 ####ANDI Cotter ([id number])[facility] ([facility])[address] [place] [address] Lymphocytes/100 WBC (Bld) 17.9 % Normal 13.0-44.0 [facility] Comment on above: Performed By: #### 5 7021-8 ####ANDI Cotter ([id number])[facility] ([facility])[address] [place] [address] MCH (RBC) [Entitic mass] 28.9 pg Normal 26.0-34.0 [facility] Comment on above: Performed By: #### 5 7021-8 ####ANDI RAJPUTMOFIDELINA L ([id number])[facility] ([facility])[address] [place] [address] MCHC (RBC) [Mass/Vol] 31.4 g/dL Low 32.0-36.0 [facility] Comment on above: Performed By: #### 5 7021-8 ####ANDI Cotter ([id number])[facility] ([facility])[address] [place] [address] MCV (RBC) [Entitic vol] 92 fL Normal 80-100 [facility] Comment on above: Performed By: #### 5 7021-8 ####ANDI Cotter (60952)[facility] ([facility])[address] [place] [address] Monocytes (Bld) [#/Vol] 0.73 x10*3/uL Normal 0.10-1.00 [facility] Comment on above: Performed By: #### 5 7021-8 ####ANDI Cotter ([id number])[facility] ([facility])[address] [place] [address] Monocytes/100 WBC (Bld) 6.5 % Normal 2.0-10.0 [facility] Comment on above: Performed By: #### 5 7021-8 ####ANDI Cotter ([id number])[facility] ([facility])[address] [place] [address] Neutrophils (Bld) [#/Vol] 7.91 x10*3/uL High 1.20-7.70 [facility] Comment on above: Result Comment: Perc ent differential counts (%) should be interpreted in the context of the absolute cell counts (cells/uL). Performed By: #### 5 7021-8 ####ANDI Cotter ([id number])[facility] ([facility])[address] [place] [address] Neutrophils/100 WBC (Bld) 70.9 % Normal 40.0-80.0 [facility] Comment on above: Performed By: #### 5 7021-8 ####ANDI Cotter (72032)[facility] ([facility])[address]168 [place] [address] Nucleated RBC/100 WBC (Bld) [Ratio] 0.0 /100 WBCs Normal 0.0-0.0 [facility] Comment on above: Performed By: #### 5 7021-8 ####ANDI Cotter ([id number])[facility] ([facility])[address] [place] [address] Platelets (Bld) [#/Vol] 333 x10*3/uL Normal 150-450 [facility] Comment on above: Performed By: #### 5 7021-8 ####ANDI Cotter ([id number])[facility] ([facility])[address] [place] [address] RBC (Bld) [#/Vol] 3.60 x10*6/uL Low 4.00-5.[address] [facility] Comment on above: Performed By: #### 5 7021-8 ####ANDI Cotter (69481)[facility] ([facility])[address] [place] [address] WBC (Bld) [#/Vol] 11.2 x10*3/uL Normal 4.4-11.[address] [facility] Comment on above: Performed By: #### 5 7021-8 ####ANDI Cotter ([id number])[facility] ([facility])[address] [place] [address] Coagulation surface inducedo n 02-06-2024 aPTT Coag (PPP) [Time] 50 s High 27-38 [facility] Comment on above: Order Comment: Prior to initiating heparin if not obtained in prior 48 hours. Nursing to release order.The APTT is no longer used for monitoring Unfractionated Heparin Therapy. For monitoring Heparin Therapy, use the Heparin Assay. Performed By: #### 1 4979-9 ####ANDI Cotter ([id number])[facility] ([facility])[address] [place] [address] Comprehensive metabolic 2000 panelon 02-06-2024 Albumin BCP dye [Mass/Vol] 3.3 g/dL Low 3.4-5.0 [facility] Comment on above: Performed By: #### 2 4323-8 ####ANDI Cotter ([id number])[facility] ([facility])[address] [place] [address] ALP [Catalytic activity/Vol] 179 U/L High 33-110 [facility] Comment on above: Performed By: #### 2 4323-8 ####ANDI Cotter (73900)[facility] ([facility])[address] [place] [address] ALT With P-5'-P [Catalytic activity/Vol] 55 U/L High 7-45 [facility] Comment on above: Result Comment: Evelyn ents treated with Sulfasalazine may generate falsely decreased results for ALT. Performed By: #### 2 4323-8 ####ANDI Cotter ([id number])[facility] ([facility])[address] [place] [address] Anion gap [Moles/Vol] 15 mmol/L Normal 10-20 [facility] Comment on above: Performed By: #### 2 4323-8 ####ANDI Cotter ([id number])[facility] ([facility])[address] [place] [address] AST With P-5'-P [Catalytic activity/Vol] 45 U/L High 9-39 [facility] Comment on above: Performed By: #### 2 4323-8 ####ANDI Cotter ([id number])[facility] ([facility])[address] [place] [address] Bilirubin [Mass/Vol] 0.3 mg/dL Normal 0.0-1.[address] [facility] Comment on above: Performed By: #### 2 4323-8 ####ANDI Cotter ([id number])[facility] ([facility])[address] [place] [address] Calcium [Mass/Vol] 8.6 mg/dL Normal 8.6-10.6 [facility] Comment on above: Performed By: #### 2 4323-8 ####ANDI Cotter ([id number])[facility] ([facility])[address] [place] [address] Chloride [Moles/Vol] 99 mmol/L Normal 98-[address] [facility] Comment on above: Performed By: #### 2 4323-8 ####ANDI RENEEER L ([id number])[facility] ([facility])[address] [place] [address] CO2 [Moles/Vol] 27 mmol/L Normal 21-32 [facility] Comment on above: Performed By: #### 2 4323-8 ####ANDI CHAUDHARY L ([id number])[facility] ([facility])[address] [place] [address] Creatinine [Mass/Vol] 0.77 mg/dL Normal 0.50-1.05 [facility] Comment on above: Performed By: #### 2 4323-8 ####ANDI CHAUDHARY L ([id number])[facility] ([facility])[address] [place] [address] GFR/1.73 sq M.predicted MDRD (S/P/Bld) [Vol rate/Area] mL/min/{1.73_m2} Normal >60 [facility] Comment on above: Result Comment: Calc ulations of estimated GFR are performed using the 2020 CKD-EPI Study Refit equation without the race variable for the IDMS-Traceable creatinine methods.https://jasn.asnjournals.org/content/early/ N.9027184869 Performed By: #### 2 4323-8 ####ANDI MADRIDTZJYOTI L ([id number])[facility] ([facility])[address] [place] [address] Glucose [Mass/Vol] 154 mg/dL High 74-99 [facility] Comment on above: Performed By: #### 2 4323-8 ####ANDI CHAUDHARY L (65077)[facility] ([facility])[address] [place] [address] Potassium [Moles/Vol] 3.8 mmol/L Normal 3.5-5.3 [facility] Comment on above: Performed By: #### 2 4323-8 ####ANDI Cotter ([id number])[facility] ([facility])[address] [place] [address] Protein [Mass/Vol] 6.5 g/dL Normal 6.4-8.2 [facility] Comment on above: Performed By: #### 2 4323-8 ####ANDI Cotter ([id number])[facility] ([facility])[address] [place] [address] Sodium [Moles/Vol] 137 mmol/L Normal 136-145 [facility] Comment on above: Performed By: #### 2 4323-8 ####ANDI Cotter ([id number])[facility] ([facility])[address] [place] [address] Urea nitrogen [Mass/Vol] 10 mg/dL Normal 6-23 [facility] Comment on above: Performed By: #### 2 4323-8 ####ANDI Cotter (75027)[facility] ([facility])[address] [place] [address]26 Glucose Test strip manual (B ld) [Mass/Vol]on 02-06-2024 Glucose [Mass/Vol] 140 mg/dL High [address] [place] [address] Comment on above: Performed By: #### 2 341-6 ####ANDI Cotter ([id number])[facility] ([facility])[address] [place] [address] Glucose [Mass/Vol] 205 mg/dL High -[address] [place] [address] Comment on above: Performed By: #### 2 341-6 ####ANDI Cotter ([id number])[facility] ([facility])[address] [place] [address] 26426 Glucose [Mass/Vol] 160 mg/dL High 74-[address] [place] [address] Comment on above: Performed By: #### 2 341-6 ####ANDI Cotter ([id number])[facility] ([facility])[address] [place] [address] Heparin.unfractionatedon Heparin unfractionated Chromogenic method Qn (PPP) 0.3 IU/mL Normal See Comment Below for Therapeutic Ranges [facility] Comment on above: [...] please refer to local Pharmacy and the [facility] Guidelines for Anticoagulation Therapy available on the [facility] intranet at: [email or web address]_Guidelines_for_Anticoagu.aspx Performed By: #### 3 274-8 ####ANDI Cotter ([id number])[facility] ([facility])[address] [place] [address] Magnesiumon 02-06-2024 Magnesium [Mass/Vol] 1.91 mg/dL Normal 1.60-2.[address] [facility] Comment on above: Performed By: #### 1 9123-9 ####ANDI Cotter (48040)[facility] ([facility])[address] [place] [address] Basic metabolic 2000 panelon 02-05-2024 Anion gap [Moles/Vol] 16 mmol/L Normal 10-20 [facility] Comment on above: Performed By: #### 2 4321-2 ####ANDI Cotter ([id number])[facility] ([facility])[address] [place] [address] Calcium [Mass/Vol] 8.8 mg/dL Normal 8.6-10.6 [facility] Comment on above: Performed By: #### 2 4321-2 ####ANDI CHAUDHARY L (43793)[facility] ([facility])[address] [place] [address] Chloride [Moles/Vol] 99 mmol/L Normal 98-[address] [facility] Comment on above: Performed By: #### 2 4321-2 ####ANDI CHAUDHARY L (27593)[facility] ([facility])[address]35 [place] [address] CO2 [Moles/Vol] 26 mmol/L Normal 21-32 [facility] Comment on above: Performed By: #### 2 4321-2 ####ANDI CHAUDHARY L (27138)[facility] ([facility])[address]33 [place] [address] Creatinine [Mass/Vol] 0.70 mg/dL Normal 0.50-1.05 [facility] Comment on above: Performed By: #### 2 4321-2 ####ANDI Cotter ([id number])[facility] ([facility])[address] [place] [address] GFR/1.73 sq M.predicted MDRD (S/P/Bld) [Vol rate/Area] mL/min/{1.73_m2} Normal >60 [facility] Comment on above: Result Comment: Calc ulations of estimated GFR are performed using the 2020 CKD-EPI Study Refit equation without the race variable for the IDMS-Traceable creatinine methods.https://jasn.asnjournals.org/content/early// N.9919762246 Performed By: #### 2 4321-2 ####ANDI CHAUDHARY L ([id number])[facility] ([facility])[address]68 [place] [address] Glucose [Mass/Vol] 116 mg/dL High 74-99 [facility] Comment on above: Performed By: #### 2 4321-2 ####ANDI CHAUDHARY L (08686)[facility] ([facility])[address] [place] [address] Potassium [Moles/Vol] 4.0 mmol/L Normal 3.5-5.3 [facility] Comment on above: Performed By: #### 2 4321-2 ####ANDI Cotter ([id number])[facility] ([facility])[address] [place] [address] Sodium [Moles/Vol] 137 mmol/L Normal 136-145 [facility] Comment on above: Performed By: #### 2 4321-2 ####ANDI Cotter (92045)[facility] ([facility])[address] [place] [address] Urea nitrogen [Mass/Vol] 7 mg/dL Normal 6-23 [facility] Comment on above: Performed By: #### 2 4321-2 ####ANDI Cotter ([id number])[facility] ([facility])[address] [place] [address] CBC W Auto Differential pane l (Bld)on 02-05-2024 Basophils (Bld) [#/Vol] 0.06 x10*3/uL Normal 0.00-0.10 [facility] Comment on above: Performed By: #### 5 7021-8 ####ANDI Cotter ([id number])[facility] ([facility])[address] [place] [address] Basophils/100 WBC (Bld) 0.5 % Normal 0.0-2.0 [facility] Comment on above: Performed By: #### 5 7021-8 ####ANDI Cotter (98352)[facility] ([facility])[address]31 [place] [address] Eosinophils (Bld) [#/Vol] 0.26 x10*3/uL Normal 0.00-0.70 [facility] Comment on above: Performed By: #### 5 7021-8 ####ANDI Cotter (17473)[facility] ([facility])[address]761 [place] [address] Eosinophils/100 WBC (Bld) 2.1 % Normal 0.0-6.0 [facility] Comment on above: Performed By: #### 5 7021-8 ####ANDI Cotter ([id number])[facility] ([facility])[address] [place] [address] 85[address] Erythrocyte distribution width (RBC) [Ratio] 13.5 % Normal 11.5-14.5 [facility] Comment on above: Performed By: #### 5 7021-8 ####ANDI Cotter (55007)[facility] ([facility])[address] [place] [address] 035[address] Hematocrit (Bld) [Volume fraction] 33.4 % Low 36.0-46.0 [facility] Comment on above: Performed By: #### 5 7021-8 ####ANDI Cotter (24503)[facility] ([facility])[address] [place] [address] Hemoglobin (Bld) [Mass/Vol] 10.1 g/dL Low 12.0-16.0 [facility] Comment on above: Performed By: #### 5 7021-8 ####ANDI Cotter ([id number])[facility] ([facility])[address] [place] [address] Immature granulocytes (Bld) [#/Vol] 0.22 x10*3/uL Normal 0.00-0.70 [facility] Comment on above: Performed By: #### 5 7021-8 ####ANDI Cotter ([id number])[facility] ([facility])[id number] [place] [id number] Immature granulocytes/100 WBC (Bld) 1.8 % High 0.0-0.9 [facility] Comment on above: Result Comment: Debbie ture Granulocyte Count (IG) includes promyelocytes, myelocytes and metamyelocytes but does not include bands. Percent differential counts (%) should be interpreted in the context of the absolute cell counts (cells/UL). Performed By: #### 5 7021-8 ####ANDI Cotter ([id number])[facility] ([facility])[address] [place] [address] Lymphocytes (Bld) [#/Vol] 1.84 x10*3/uL Normal 1.20-4.80 [facility] Comment on above: Performed By: #### 5 7021-8 ####ANDI Cotter ([id number])[facility] ([facility])[address] [place] [address] Lymphocytes/100 WBC (Bld) 14.7 % Normal 13.0-44.0 [facility] Comment on above: Performed By: #### 5 7021-8 ####ANDI Cotter ([id number])[facility] ([facility])[id number] [place] [id number] [facility] (RBC) [Entitic mass] 27.7 pg Normal 26.0-34.0 [facility] Comment on above: Performed By: #### 5 7021-8 ####ANDI Cotter ([id number])[facility] ([facility])[address] [place] [address] 15015 MCHC (RBC) [Mass/Vol] 30.2 g/dL Low 32.0-36.0 [facility] Comment on above: Performed By: #### 5 7021-8 ####ANDI Cotter ([id number])[facility] ([facility])[address] [place] [address] 40773 MCV (RBC) [Entitic vol] 92 fL Normal 80-100 [facility] Comment on above: Performed By: #### 5 7021-8 ####ANDI Cotter ([id number])[facility] ([facility])[address] [place] [address] 17769 Monocytes (Bld) [#/Vol] 1.01 x10*3/uL High 0.10-1.00 [facility] Comment on above: Performed By: #### 5 7021-8 ####ANDI Cotter ([id number])[facility] ([facility])[address] [place] [address] Monocytes/100 WBC (Bld) 8.1 % Normal 2.0-10.0 [facility] Comment on above: Performed By: #### 5 7021-8 ####ANDI Cotter ([id number])[facility] ([facility])[address] [place] [address] Neutrophils (Bld) [#/Vol] 9.11 x10*3/uL High 1.20-7.70 [facility] Comment on above: Result Comment: Perc ent differential counts (%) should be interpreted in the context of the absolute cell counts (cells/uL). Performed By: #### 5 7021-8 ####ANDI Cotter ([id number])[facility] ([facility])[address] [place] [address] 925[address] Neutrophils/100 WBC (Bld) 72.8 % Normal 40.0-80.0 [facility] Comment on above: Performed By: #### 5 7021-8 ####ANDI Cotter ([id number])[facility] ([facility])[address] [place] [address] 86499 Nucleated RBC/100 WBC (Bld) [Ratio] 0.0 /100 WBCs Normal 0.0-0.0 [facility] Comment on above: Performed By: #### 5 7021-8 ####ANDI Cotter ([id number])[facility] ([facility])[address] [place] [address] Platelets (Bld) [#/Vol] 330 x10*3/uL Normal 150-450 [facility] Comment on above: Performed By: #### 5 7021-8 ####ANDI CHAUDHARY L ([id number])[facility] ([facility])[address] [place] [address] RBC (Bld) [#/Vol] 3.65 x10*6/uL Low 4.00-5.[address] [facility] Comment on above: Performed By: #### 5 7021-8 ####ANDI Cotter ([id number])[facility] ([facility])[address] [place] [address] WBC (Bld) [#/Vol] 12.5 x10*3/uL High 4.4-11.[address] [facility] Comment on above: Performed By: #### 5 7021-8 ####ANDI Cotter ([id number])[facility] ([facility])[address] [place] [address] Glucose Test strip manual (B ld) [Mass/Vol]on 02-05-2024 Glucose [Mass/Vol] 190 mg/dL High [address] [place] [address] Comment on above: Performed By: #### 2 341-6 ####ANDI Cotter ([id number])[facility] ([facility])[address] [place] [address] Glucose [Mass/Vol] 152 mg/dL High [address] [place] [address] Comment on above: Performed By: #### 2 341-6 ####ANDI Cotter ([id number])[facility] ([facility])[address] [place] [address] Glucose [Mass/Vol] 124 mg/dL High [address] [place] [address] Comment on above: Performed By: #### 2 341-6 ####ANDI Cotter ([id number])[facility] ([facility])[address] [place] [address] Heparin.unfractionatedon Heparin unfractionated Chromogenic method Qn (PPP) 0.3 IU/mL Normal See Comment Below for Therapeutic Ranges [facility] Comment on above: [...] please refer to local Pharmacy and the [facility] Guidelines for Anticoagulation Therapy available on the [facility] intranet at: [email or web address] Performed By: #### 3 274-8 ####ANDI Cotter ([id number])[facility] ([facility])[address] [place] [address] Heparin unfractionated Chromogenic method Qn (PPP) 0.3 IU/mL Normal See Comment Below for Therapeutic Ranges [facility] Comment on above: [...] please refer to local Pharmacy and the [facility] Guidelines for Anticoagulation Therapy available on the [facility] intranet at: [email or web address] Performed By: #### 3 274-8 ####ANDI Cotter ([id number])[facility] [place] [address] Heparin unfractionated Chromogenic method Qn (PPP) 0.1 IU/mL Normal See Comment Below for Therapeutic Ranges [facility] Comment on above: [...] please refer to local Pharmacy and the [facility] Guidelines for Anticoagulation Therapy available on the [facility] intranet at: [email or web address] Performed By: #### 3 274-8 ####ANDI Cotter ([id number])[facility] ([facility])[address] [place] [address] Hepatic function 2000 panelo n 02-05-2024 Albumin BCP dye [Mass/Vol] 3.3 g/dL Low 3.4-5.0 [facility] Comment on above: Performed By: #### 2 4325-3 ####ANDI Cotter ([id number])[facility] ([facility])[address] [place] [address] ALP [Catalytic activity/Vol] 168 U/L High 33-110 [facility] Comment on above: Performed By: #### 2 4325-3 ####ANDI Cotter ([id number])[facility] ([facility])[address] [place] [address] ALT With P-5'-P [Catalytic activity/Vol] 44 U/L Normal 7-45 [facility] Comment on above: Result Comment: Evelyn ents treated with Sulfasalazine may generate falsely decreased results for ALT. Performed By: #### 2 4325-3 ####ANDI Cotter ([id number])[facility] ([facility])[address] [place] [address] AST With P-5'-P [Catalytic activity/Vol] 61 U/L High 9-39 [facility] Comment on above: Performed By: #### 2 4325-3 ####ANDI Cotter ([id number])[facility] ([facility])[address]46 [place] [address] Bilirubin [Mass/Vol] 0.4 mg/dL Normal 0.0-1.[address] [facility] Comment on above: Performed By: #### 2 4325-3 ####ANDI CHAUDHARY L ([id number])[facility] ([facility])[address] [place] [address] Bilirubin.direct [Mass/Vol] 0.1 mg/dL Normal 0.0-0.3 [facility] Comment on above: Performed By: #### 2 4325-3 ####ANDI Cotter ([id number])[facility] ([facility])[address] [place] [address] Protein [Mass/Vol] 7.1 g/dL Normal 6.4-8.2 [facility] Comment on above: Performed By: #### 2 4325-3 ####ANDI Cotter ([id number])[facility] ([facility])[address] [place] [address] Magnesiumon 02-05-2024 Magnesium [Mass/Vol] 1.93 mg/dL Normal 1.60-2.[address] [facility] Comment on above: Performed By: #### 1 9123-9 ####ANDI Cotter ([id number])[facility] ([facility])[address] [place] [address] PT and aPTT panel Coag (PPP) on 02-05-2024 aPTT Coag (PPP) [Time] 31 s Normal 27-38 [facility] Comment on above: Order Comment: The A PTT is no longer used for monitoring Unfractionated Heparin Therapy. For monitoring Heparin Therapy, use the Heparin Assay. Performed By: #### 3 4529-8 ####ANDI Cotter ([id number])[facility] ([facility])[address] [place] [address]205 INR Coag (PPP) [Relative time] 1.3 High 0.9-1.1 [facility] Comment on above: Order Comment: The A PTT is no longer used for monitoring Unfractionated Heparin Therapy. For monitoring Heparin Therapy, use the Heparin Assay. Performed By: #### 3 4529-8 ####ANDI Cotter ([id number])[facility] ([facility])[address] [place] [address] PT Coag (PPP) [Time] 15.1 s High 9.8-12.[address] [facility] Comment on above: Order Comment: The A PTT is no longer used for monitoring Unfractionated Heparin Therapy. For monitoring Heparin Therapy, use the Heparin Assay. Performed By: #### 3 4529-8 ####ANDI Cotter ([id number])[facility] ([facility])[address] [facility] [place] [address] Phosphateon 02-05-2024 Phosphate [Mass/Vol] 3.6 mg/dL Normal 2.5-4.[address] [facility] Comment on above: Result Comment: The performance characteristics of phosphorus testing in heparinized plasma have been validated by the individual laboratory site where testing is performed. Testing on heparinized plasma is not approved by the FDA; however, such approval is not necessary. Performed By: #### 2 777-1 ####ANDI Cotter ([id number])[facility] ([facility])[address] [place] [address] Bacteria identifiedon 2023 Bacteria identified Cx Nom (Bld) [facility] Comment on above: Performed By: #### 6 00-7 ####ANDI Cotter ([id number])[facility] ([facility])[address] [place] [address] Bacteria identified Cx Nom (Bld) [facility] Comment on above: Performed By: #### 6 00-7 ####ANDI Cotter ([id number])[facility] ([facility])[address] [place] [address] Basic metabolic 2000 panelon 02-04-2024 Anion gap [Moles/Vol] 15 mmol/L Normal 10-20 [facility] Comment on above: Performed By: #### 2 4321-2 ####ANDI Cotter ([id number])[facility] ([facility])[address]28 [place] [address] Calcium [Mass/Vol] 8.2 mg/dL Low 8.6-10.6 [facility] Comment on above: Performed By: #### 2 4321-2 ####ANDI Cotter ([id number])[facility] ([facility])[address] [place] [address] Chloride [Moles/Vol] 100 mmol/L Normal 98-[address] [facility] Comment on above: Performed By: #### 2 4321-2 ####ANDI Cotter ([id number])[facility] ([facility])[address] [place] [address] CO2 [Moles/Vol] 26 mmol/L Normal 21-32 [facility] Comment on above: Performed By: #### 2 4321-2 ####ANDI Cotter ([id number])[facility] ([facility])[address] [place] [address] Creatinine [Mass/Vol] 0.68 mg/dL Normal 0.50-1.05 [facility] Comment on above: Performed By: #### 2 4321-2 ####ANDI Cotter ([id number])[facility] ([facility])[address] [place] [address] GFR/1.73 sq M.predicted MDRD (S/P/Bld) [Vol rate/Area] mL/min/{1.73_m2} Normal >60 [facility] Comment on above: Result Comment: Calc ulations of estimated GFR are performed using the 2020 CKD-EPI Study Refit equation without the race variable for the IDMS-Traceable creatinine methods.https://jasn.asnjournals.org/content/early/ N.2218761378 Performed By: #### 2 4321-2 ####ANDI Cotter ([id number])[facility] ([facility])[address]350 [place] [address] Glucose [Mass/Vol] 99 mg/dL Normal 74-99 [facility] Comment on above: Performed By: #### 2 4321-2 ####ANDI Cotter ([id number])[facility] ([facility])[address] [place] [address] Potassium [Moles/Vol] 4.5 mmol/L Normal 3.5-5.3 [facility] Comment on above: Performed By: #### 2 4321-2 ####ANDI Cotter ([id number])[facility] ([facility])[address]31 [place] [address] Sodium [Moles/Vol] 136 mmol/L Normal 136-145 [facility] Comment on above: Performed By: #### 2 4321-2 ####ANDI Cotter ([id number])[facility] ([facility])[address] [place] [address] Urea nitrogen [Mass/Vol] 7 mg/dL Normal - [facility] Comment on above: Performed By: #### 2 4321-2 ####ANDI Cotter ([id number])[facility] ([facility])[address] [place] [address], [place] [address] Blood type and Indirect anti body screen panel (Bld)on 02-04-2024 ABO group Nom (Bld) A Normal [facility] Comment on above: Order Comment: Revie w your Rh Negative female patient's potential need for Rh Immune Globulin (RhIg)administration. Performed By: #### 3 4532-2 ####ANDI Cotter ([id number])[facility] ([facility])[address] [place] [address] Blood group antibody screen Ql Negative Normal [facility] Comment on above: Order Comment: Revie w your Rh Negative female patient's potential need for Rh Immune Globulin (RhIg)administration. Performed By: #### 3 4532-2 ####ANDI Cotter ([id number])[facility] ([facility])[address] [place] [address] D Ag Ql (Bld) Negative [facility] Comment on above: Order Comment: Revie w your Rh Negative female patient's potential need for Rh Immune Globulin (RhIg)administration. Performed By: #### 3 4532-2 ####ANDI Cotter ([id number])[facility] ([facility])[address] [place] [address] C reactive proteinon 024 CRP [Mass/Vol] 14.39 mg/dL High <1.00 [facility] Comment on above: Performed By: #### 1 988-5 ####ANDI Cotter ([id number])[facility] ([facility])[address] [place] [address] CBC W Auto Differential pane l (Bld)on 02-04-2024 Basophils (Bld) [#/Vol] 0.05 x10*3/uL Normal 0.00-0.10 [facility] Comment on above: Performed By: #### 5 7021-8 ####ANDI Cotter ([id number])[facility] ([facility])[address] [place] [address] Basophils/100 WBC (Bld) 0.4 % Normal 0.0-2.0 [facility] Comment on above: Performed By: #### 5 7021-8 ####ANDI Cotter ([id number])[facility] ([facility])[address] [place] [address] Eosinophils (Bld) [#/Vol] 0.22 x10*3/uL Normal 0.00-0.70 [facility] Comment on above: Performed By: #### 5 7021-8 ####ANDI CHAUDHARY L ([id number])[facility] ([facility])[address] [place] [address] Eosinophils/100 WBC (Bld) 1.9 % Normal 0.0-6.0 [facility] Comment on above: Performed By: #### 5 7021-8 ####ANDI Cotter ([id number])[facility] ([facility])[address] [place] [address] Erythrocyte distribution width (RBC) [Ratio] 13.6 % Normal 11.5-14.5 [facility] Comment on above: Performed By: #### 5 7021-8 ####ANDI CHAUDHARY L ([id number])[facility] ([facility])[address] [place] [address] Hematocrit (Bld) [Volume fraction] 32.7 % Low 36.0-46.0 [facility] Comment on above: Performed By: #### 5 7021-8 ####ANDI Cotter ([id number])[facility] ([facility])[address] [place] [address] Hemoglobin (Bld) [Mass/Vol] 10.3 g/dL Low 12.0-16.0 [facility] Comment on above: Performed By: #### 5 7021-8 ####ANDI Cotter ([id number])[facility] ([facility])[address] [place] [address] Immature granulocytes (Bld) [#/Vol] 0.29 x10*3/uL Normal 0.00-0.70 [facility] Comment on above: Performed By: #### 5 7021-8 ####ANDI Cotter ([id number])[facility] ([facility])[address] [place] [address] Immature granulocytes/100 WBC (Bld) 2.5 % High 0.0-0.9 [facility] Comment on above: Result Comment: Debbie ture Granulocyte Count (IG) includes promyelocytes, myelocytes and metamyelocytes but does not include bands. Percent differential counts (%) should be interpreted in the context of the absolute cell counts (cells/UL). Performed By: #### 5 7021-8 ####ANDI Cotter ([id number])[facility] ([facility])[address] [place] [address] Lymphocytes (Bld) [#/Vol] 2.04 x10*3/uL Normal 1.20-4.80 [facility] Comment on above: Performed By: #### 5 7021-8 ####ANDI Cotter ([id number])[facility] ([facility])[address] [place] [address] Lymphocytes/100 WBC (Bld) 17.4 % Normal 13.0-44.0 [facility] Comment on above: Performed By: #### 5 7021-8 ####ANDI Cotter ([id number])[facility] ([facility])[address] [place] [address] MCH (RBC) [Entitic mass] 28.3 pg Normal 26.0-34.0 [facility] Comment on above: Performed By: #### 5 7021-8 ####ANDI Cotter ([id number])[facility] ([facility])[address] [place] [address] MCHC (RBC) [Mass/Vol] 31.5 g/dL Low 32.0-36.0 [facility] Comment on above: Performed By: #### 5 7021-8 ####ANDI CHAUDHARY L ([id number])[facility] ([facility])[address] [place] [address] MCV (RBC) [Entitic vol] 90 fL Normal 80-100 [facility] Comment on above: Performed By: #### 5 7021-8 ####ANDI Cotter ([id number])[facility] ([facility])[address] [place] [address] Monocytes (Bld) [#/Vol] 1.05 x10*3/uL High 0.10-1.00 [facility] Comment on above: Performed By: #### 5 7021-8 ####ANDI Cotter ([id number])[facility] ([facility])[address] [place] [address] Monocytes/100 WBC (Bld) 9.0 % Normal 2.0-10.0 [facility] Comment on above: Performed By: #### 5 7021-8 ####ANDI RAJPUTMOFIDELINA L ([id number])[facility] ([facility])[address] [place] [address] Neutrophils (Bld) [#/Vol] 8.05 x10*3/uL High 1.20-7.70 [facility] Comment on above: Result Comment: Perc ent differential counts (%) should be interpreted in the context of the absolute cell counts (cells/uL). Performed By: #### 5 7021-8 ####ANDI RAJPUTMOFIDELINA L ([id number])[facility] ([facility])[address] [place] [address] Neutrophils/100 WBC (Bld) 68.8 % Normal 40.0-80.0 [facility] Comment on above: Performed By: #### 5 7021-8 ####ANDI Cotter ([id number])[facility] ([facility])[address] [place] [address] Nucleated RBC/100 WBC (Bld) [Ratio] 0.0 /100 WBCs Normal 0.0-0.0 [facility] Comment on above: Performed By: #### 5 7021-8 ####ANDI CHAUDHARY L ([id number])[facility] ([facility])[address] [place] [address] Platelets (Bld) [#/Vol] 343 x10*3/uL Normal 150-450 [facility] Comment on above: Performed By: #### 5 7021-8 ####ANDI Cotter ([id number])[facility] ([facility])[address]133 [place] [address] RBC (Bld) [#/Vol] 3.64 x10*6/uL Low 4.00-5.[address] [facility] Comment on above: Performed By: #### 5 7021-8 ####ANDI Cotter ([id number])[facility] ([facility])[address] [place] [address] WBC (Bld) [#/Vol] 11.7 x10*3/uL High 4.4-11.[address] [facility] Comment on above: Performed By: #### 5 7021-8 ####ANDI Cotter ([id number])[facility] ([facility])[address] [place] [address] ECG 12-LEADon 02-04-2024 ECG 12-LEAD Ventricular Rate 84 Atrial Rate 84 P-R Interval 136 QRS Duration 84 Q-T Interval 400 QTC Calculation(Bazett) 472 P [place] 8 R [place] -5 T [place] 30 QRS Count 14 Q Onset 226 P Onset 158 P Offset 210 T Offset 426 QTC Fredericia 447 Diagnosis Normal sinus rhythm with sinus arrhythmia Normal ECG When compared with ECG of 06-DEC-2023 11:52, No significant change was found Confirmed by Dominick Naik ([id number]) on 02/07/2024 7:51:09 AM Normal [facility] ESR Westergren method (Bld) [Velocity]on 02-04-2024 ESR (Bld) [Velocity] 77 mm/h High 0-[address] [facility] Comment on above: Performed By: #### 4 537-7 ####ANDI Cotter ([id number])[facility] ([facility])[address] [place] [address] Glucose Test strip manual (B ld) [Mass/Vol]on 02-04-2024 Glucose [Mass/Vol] 132 mg/dL High 74-99 [facility] Comment on above: Performed By: #### 2 341-6 ####ANDI Cotter ([id number])[facility] ([facility])[address] [place] [address] HbA1c (Bld) [Mass fraction]o n 02-04-2024 Average glucose Estimated from glycated hemoglobin (Bld) [Mass/Vol] 166 mg/dL Normal Not Established [facility] Comment on above: Order Comment: Diagn osis of Eymfebzt-IefrosNzo-Hjhpjdwk: < or = 5.6%Increased risk for developing diabetes: 5.7-6.4%Diagnostic of diabetes: > or = 6.5%Monitoring of DiabetesAge (y)....................... Therapeutic Goal (%)Adults: >18.........................<7.0Pediatrics: 13-18...................<7.5Pediatrics: 7-12....................<8.0Pediatrics: 0-6..................... 7.5-8.5American Diabetes Association. Diabetes Care 33(S1), Sep 2009 Performed By: #### 4 548-4 ####ANDI Cotter ([id number])[facility] ([facility])[address] [place] [address] Hemoglobin A1c/Hemoglobin.to fermín 02-04-2024 HbA1c (Bld) [Mass fraction] 7.4 % High see below [facility] Comment on above: Order Comment: Diagn osis of Lygdjxuz-YsqbifTta-Gzuzsovf: < or = 5.6%Increased risk for developing diabetes: 5.7-6.4%Diagnostic of diabetes: > or = 6.5%Monitoring of DiabetesAge (y)....................... Therapeutic Goal (%)Adults: >18.........................<7.0Pediatrics: 13-18...................<7.5Pediatrics: 7-12....................<8.0Pediatrics: 0-6..................... 7.5-8.5American Diabetes Association. Diabetes Care 33(S1), Sep 2009 Performed By: #### 4 548-4 ####ANDI Cotter ([id number])[facility] ([facility])[address] [place] [address] Hepatic function 2000 panelo n 02-04-2024 Albumin BCP dye [Mass/Vol] 3.4 g/dL Normal 3.4-5.0 [facility] Comment on above: Performed By: #### 2 4325-3 ####ANDI Cotter ([id number])[facility] ([facility])[address] [place] [address] ALP [Catalytic activity/Vol] 155 U/L High 33-110 [facility] Comment on above: Performed By: #### 2 4325-3 ####ANDI Cotter ([id number])[facility] ([facility])[address] [place] [address] ALT With P-5'-P [Catalytic activity/Vol] 35 U/L Normal 7-45 [facility] Comment on above: Result Comment: Evelyn ents treated with Sulfasalazine may generate falsely decreased results for ALT. Performed By: #### 2 4325-3 ####ANDI Cotter ([id number])[facility] ([facility])[address] [place] [address] AST With P-5'-P [Catalytic activity/Vol] 44 U/L High 9-39 [facility] Comment on above: Performed By: #### 2 4325-3 ####ANDI Cotter ([id number])[facility] ([facility])[address] [place] [address] Bilirubin [Mass/Vol] 0.4 mg/dL Normal 0.0-1.[address] [facility] Comment on above: Performed By: #### 2 4325-3 ####ANDI Cotter ([id number])[facility] ([facility])[address] [place] [address] Bilirubin.direct [Mass/Vol] 0.1 mg/dL Normal 0.0-0.3 [facility] Comment on above: Performed By: #### 2 4325-3 ####ANDI Cotter ([id number])[facility] ([facility])[address] [place] [address] Protein [Mass/Vol] 6.5 g/dL Normal 6.4-8.2 [facility] Comment on above: Performed By: #### 2 4325-3 ####ANDI Cotter ([id number])[facility] ([facility])[address] [place] [address] LIPID PANEL NON-FASTINGon Cholesterol [Mass/Vol] 131 mg/dL Normal 0-199 [facility] Comment on above: Result Comment: Age Desirable [...] Performed By: #### L IPIN ####ANDI Cotter ([id number])[facility] ([facility])[address] [place] [address] Cholesterol in HDL [Mass/Vol] 22.0 mg/dL Normal [facility] Comment on above: Result Comment: Age Very Low Low Normal High0-19 Y < 35 < 40 40-45 ----20-24 Y ---- < 40 >45 ---->24 Y ---- < 40 40-60 >60 Performed By: #### L IPIN ####ANDI Cotter ([id number])[facility] ([facility])[address] [place] [address] CHOLESTEROL/HDL RATIO 6.0 Normal [facility] Comment on above: Result Comment: Ref ValuesDesirable < 3.4High Risk > 5.0 Performed By: #### L IPIN ####ANDI Cotter ([id number])[facility] ([facility])[address] [place] [address] NON-HDL CHOLESTEROL 109 mg/dL Normal 0-149 [facility] Comment on above: Result Comment: Age Desiable Borderline High High Very High 0- 19 Y 0 - 119 120 - 144 >/= 145 >/= 17119-42 Y 0 - 149 150 - 189 >/= 190 ---- >24 Y 30 MG/DL ABOVE LDL CHOLESTEROL GOAL Performed By: #### L IPIN ####ANDI Cotter ([id number])[facility] ([facility])[address] [place] [address] PT and aPTT panel Coag (PPP) on 02-04-2024 aPTT Coag (PPP) [Time] 29 s Normal 27-38 [facility] Comment on above: Order Comment: The A PTT is no longer used for monitoring Unfractionated Heparin Therapy. For monitoring Heparin Therapy, use the Heparin Assay. Performed By: #### 3 4529-8 ####ANDI Cotter ([id number])[facility] ([facility])[address] [place] [address] INR Coag (PPP) [Relative time] 1.3 High 0.9-1.1 [facility] Comment on above: Order Comment: The A PTT is no longer used for monitoring Unfractionated Heparin Therapy. For monitoring Heparin Therapy, use the Heparin Assay. Performed By: #### 3 4529-8 ####ANDI Cotter ([id number])[facility] ([facility])[address] [place] [address] PT Coag (PPP) [Time] 15.2 s High 9.8-12.[address] [facility] Comment on above: Order Comment: The A PTT is no longer used for monitoring Unfractionated Heparin Therapy. For monitoring Heparin Therapy, use the Heparin Assay. Performed By: #### 3 4529-8 ####ANDI Cotter ([id number])[facility] ([facility])[address] [place] [address] Phosphateon 02-04-2024 Phosphate [Mass/Vol] 3.6 mg/dL Normal 2.5-4.[address] [facility] Comment on above: Result Comment: The performance characteristics of phosphorus testing in heparinized plasma have been validated by the individual laboratory site where testing is performed. Testing on heparinized plasma is not approved by the FDA; however, such approval is not necessary. Performed By: #### 2 777-1 ####ANDI Cotter ([id number])[facility] ([facility])[id number] [place] [address] Triacylglycerol lipaseon Lipase [Catalytic activity/Vol] 16 U/L Normal 9-82 [facility] Comment on above: Order Comment: Venip uncture immediately after or during the administration of Metamizole may lead to falsely low results. Testing should be performed immediately prior to Metamizole dosing. Performed By: #### 3 040-3 ####ANDI Cotter ([id number])[facility] ([facility])[address] [place] [address] .GFRon 01-18-2024 GFR 80 ml/min/1.73sqm Normal [facility] ([place]) Comment on above: Result Comment: GFR Population [...] meters Performed By: #### C K #### [address] [address] GFR Non- 66 ml/min/1.73sqm Normal [facility] ([place]) Comment on above: Result Comment: GFR Population [...] meters Performed By: #### C K #### [address] [address] CMPon 01-18-2024 Albumin Level 3.6 G/dL Normal 3.5-5.0 [facility] ([place]) Comment on above: Performed By: #### U A, PREGU #### [facility] [address] [place], [place] [address] Albumin/Globulin [Mass ratio] 1.0 {ratio} Low 1.1-2.5 [facility] ([place]) Comment on above: Performed By: #### U A, PREGU #### [facility] [address] [place], [place] [address] ALP [Catalytic activity/Vol] 127 U/L Normal 40-135 [facility] ([place]) Comment on above: Performed By: #### U A, PREGU #### [facility] [address] [place], [place] [address] ALT [Catalytic activity/Vol] 96 U/L High 14-59 [facility] ([place] Comment on above: Performed By: #### U A, PREGU #### [facility] [address] [place], [place] [address] AST [Catalytic activity/Vol] 71 U/L High 10-40 [facility] ([place] Comment on above: Performed By: #### U A, PREGU #### [facility] [address] [place], [place] [address] Bili Total 0.3 mg/dL Normal 0.2-1.0 [facility] ([place]) Comment on above: Result Comment: Use of this assay is not recommended for patients undergoing treatment with eltrombopag due to the potential for falsely elevated results. Performed By: #### U A, PREGU #### [facility] [address] [place], [place] [address] BUN/Creatinine Ratio 11 ratio Normal 7-27 [facility] ([place]) Comment on above: Performed By: #### U A, PREGU #### [facility] [address] [place], [place] [address] Calcium [Mass/Vol] 9.1 mg/dL Normal 8.4-10.2 [facility] ([place]) Comment on above: Performed By: #### U A, PREGU #### [facility] [address] [place], [place] [address] Chloride [Moles/Vol] 101 mmol/L Normal 98-107 [facility] ([place]) Comment on above: Performed By: #### U A, PREGU #### Sean Loaizan [address] [place], [place] [address] CO2 [Moles/Vol] 27 mmol/L Normal 22-29 [facility] ([place]) Comment on above: Performed By: #### U A, PREGU #### Sean Loaizan [address] [place], [place] [address] Creatinine [Mass/Vol] 0.91 mg/dL Normal 0.55-1.02 [facility] ([place]) Comment on above: Performed By: #### U A, PREGU #### Sean Reynolds [address] [place], [place] [address] Electrolyte Balance 12.0 mEq/L Normal 4.0-15.0 [facility] ([place]) Comment on above: Performed By: #### U A, PREGU #### Seanoz Reynolds [address] [place], [place] [address] Globulin 3.7 G/dL Normal [facility] ([place]) Comment on above: Performed By: #### U A, PREGU #### Seanoz Reynolds [address] [place], [place] [address] Glucose [Mass/Vol] 113 mg/dL High 70-105 [facility] ([place]) Comment on above: Performed By: #### U A, PREGU #### Seanoz Reynolds [address] [place], [place] [address] Potassium [Moles/Vol] 4.2 mmol/L Normal 3.5-5.1 [facility] ([place]) Comment on above: Performed By: #### U A, PREGU #### Seanoz Loaizan [address] [place], [place] [address] Sodium [Moles/Vol] 140 mmol/L Normal 136-145 [facility] ([place]) Comment on above: Performed By: #### U A, PREGU #### Seanoz Loaizan [address] [place], [place] [address] Total Protein 7.3 G/dL Normal 6.4-8.2 [facility] ([place]) Comment on above: Performed By: #### U A, PREGU #### Sean Davisillon [address] [place], [place] [address] Urea nitrogen [Mass/Vol] 10 mg/dL Normal 7-18 [facility] ([place]) Comment on above: Performed By: #### U A, PREGU #### Sean Davisillon [address] [place], [place] [address] FT4on 01-18-2024 Free T4 [Mass/Vol] 1.05 ng/dL Normal 0.76-1.46 [facility] ([place]) Comment on above: Performed By: #### U A, PREGU #### Sean Loaizan [address] [place], [place] [address] LABORATORYOrdered By: SYSTEM SYSTEM on 01-18-2024 25-hydroxyvitamin [...] 01-18-2024 Cholesterol [Mass/Vol] 244 mg/dL High 0-200 [facility] ([place]) Comment on above: Result Comment: Chol esterol Reference Interval: Less than 200 Desirable 200-239 Borderline high risk 240 and above High risk Performed By: #### C K #### [address] [address] Cholesterol in HDL [Mass/Vol] 27 mg/dL Low 40-60 [facility] ([place]) Comment on above: Performed By: #### C K #### [address] [address] Cholesterol in LDL [Mass/Vol] 139 mg/dL High 0-130 [facility] ([place]) Comment on above: Performed By: #### C K #### Sean [place] [address] [place], [place] [address] Triglyceride [Mass/Vol] 388 mg/dL High 0-150 [facility] ([place]) Comment on above: Result Comment: Trig lyceride Reference Interval: Less than 150 Normal 150-199 Borderline high risk 200-499 High risk 500 or higher Very high risk Performed By: #### C K #### Sean [place] [address] [place], [place] [address] TSHon 01-18-2024 TSH Qn 1.87 m[IU]/L Normal 0.36-3.74 [facility] ([place]) Comment on above: Performed By: #### U A, PREGU #### [facility] [address] [place], [place] [address] VIDHon 01-18-2024 Vit. D 25-Hydroxy 42.4 ng/mL Normal [facility] ([place]) Comment on above: Result Comment: Inte rpretive Values Based on Total 25(OH) Vitamin D: Deficient <20 ng/mL Insufficient 20 - <30 ng/mL Sufficient 30-100 ng/mL Performed By: #### U A, PREGU #### [facility] [address] [place], [place] [address] Basic metabolic 2000 panelon 12-08-2023 Anion gap [Moles/Vol] 16 mmol/L 10 - 2 0 mmol/L [facility] Calcium [Mass/Vol] 9.6 mg/dL 8.6 - 10. 6 mg/dL [facility] Chloride [Moles/Vol] 98 mmol/L 98 - 10 7 mmol/L [facility] CO2 [Moles/Vol] 27 mmol/L 21 - 32 mmol/L [facility] Creatinine [Mass/Vol] 0.65 mg/dL 0.50 - 1.05 mg/dL [facility] eGFR - PINF [facility] Comment on above: Calculations of estuardo mated GFR are performed using the 2020 CKD-EPI Study Refit equation without the race variable for the IDMS-Traceable creatinine methods. https://jasn.asnjournals.org/content//ASN.889504 7002 Glucose [Mass/Vol] 197 mg/dL High 74 - 99 mg/dL [facility] Interpretation and review of laboratory results Abnormal [facility] Potassium [Moles/Vol] 3.8 mmol/L 3.5 - 5.3 mmol/L [facility] Sodium [Moles/Vol] 137 mmol/L 136 - 145 mmol/L [facility] Urea nitrogen [Mass/Vol] 15 mg/dL 6 - 23 mg/dL [facility] Anion gap [Moles/Vol] 16 mmol/L Normal 10-20 [facility] Comment on above: Performed By: #### 2 4321-2 ####ANDI CHAUDHARY L ([id number])[facility] ([facility])[address] [place] [address] Calcium [Mass/Vol] 9.6 mg/dL Normal 8.6-10.6 [facility] Comment on above: Performed By: #### 2 4321-2 ####ANDI CHAUDHARY L ([id number])[facility] ([facility])[address] [place] [address] Chloride [Moles/Vol] 98 mmol/L Normal 98-[address] [facility] Comment on above: Performed By: #### 2 4321-2 ####ANDI RAJPUTMOTZER L ([id number])[facility] ([facility])[address] [place] [address] CO2 [Moles/Vol] 27 mmol/L Normal 21-32 [facility] Comment on above: Performed By: #### 2 4321-2 ####ANDI RAJPUTMOTZER L ([id number])[facility] ([facility])[address] [place] [address] Creatinine [Mass/Vol] 0.65 mg/dL Normal 0.50-1.05 [facility] Comment on above: Performed By: #### 2 4321-2 ####ANDI CHAUDHARY L ([id number])[facility] ([facility])[address] [place] [address] GFR/1.73 sq M.predicted MDRD (S/P/Bld) [Vol rate/Area] mL/min/{1.73_m2} Normal >60 [facility] Comment on above: Result Comment: Calc ulations of estimated GFR are performed using the 2020 CKD-EPI Study Refit equation without the race variable for the IDMS-Traceable creatinine methods.https://jasn.asnjournals.org/content/early// N.6443384307 Performed By: #### 2 4321-2 ####ANDI CHAUDHARY L ([id number])[facility] ([facility])[address] [place] [address] Glucose [Mass/Vol] 197 mg/dL High 74-99 [facility] Comment on above: Performed By: #### 2 4321-2 ####ANDI CHAUDHARY L ([id number])[facility] ([facility])[address] [place] [address] Potassium [Moles/Vol] 3.8 mmol/L Normal 3.5-5.3 [facility] Comment on above: Performed By: #### 2 4321-2 ####ANDI CHAUDHARY L ([id number])[facility] ([facility])[address] [place] [address] Sodium [Moles/Vol] 137 mmol/L Normal 136-145 [facility] Comment on above: Performed By: #### 2 4321-2 ####ANDI RAJPUTMOTZER L ([id number])[facility] ([facility])[address] [place] [address] Urea nitrogen [Mass/Vol] 15 mg/dL Normal 6-23 [facility] Comment on above: Performed By: #### 2 4321-2 ####ANDI CHAUDHARY L ([id number])[facility] ([facility])[address] [place] [address] CBC W Auto Differential pane l (Bld)on 12-08-2023 Basophils (Bld) [#/Vol] 0.04 10*3/uL [facility] Basophils/100 WBC (Bld) 0.8 % 0.0 - 2.0 % [facility] Eosinophils (Bld) [#/Vol] 0.23 10*3/uL [facility] Eosinophils/100 WBC (Bld) 4.6 % 0.0 - 6.0 % [facility] Erythrocyte distribution width (RBC) [Ratio] 13.8 % 11.5 - 14.5 % [facility] Hematocrit (Bld) [Volume fraction] 36.5 % 36.0 - 46.0 % [facility] Hemoglobin (Bld) [Mass/Vol] 11.1 g/dL Low 12.0 - 16.0 g/dL [facility] Immature granulocytes (Bld) [#/Vol] 0.03 10*3/uL [facility] Immature granulocytes/100 WBC (Bld) 0.6 % 0.0 - 0.9 % [facility] Comment on above: Immature Granulocyte Count (IG) includes promyelocytes, myelocytes and metamyelocytes but does not include bands. Percent differential counts (%) should be interpreted in the context of the absolute cell counts (cells/UL). Interpretation and review of laboratory results Abnormal [facility] Lymphocytes (Bld) [#/Vol] 1.55 10*3/uL [facility] Lymphocytes/100 WBC (Bld) 30.8 % 13.0 - 44.0 % [facility] MCH (RBC) [Entitic mass] 28.5 pg 26.0 - 34.0 pg [facility] MCHC (RBC) [Mass/Vol] 30.4 g/dL Low 32.0 - 36.0 g/dL [facility] MCV (RBC) [Entitic vol] 94 fL 80 - 100 fL [facility] Monocytes (Bld) [#/Vol] 0.49 10*3/uL [facility] Monocytes/100 WBC (Bld) 9.7 % 2.0 - 10.0 % [facility] Neutrophils (Bld) [#/Vol] 2.69 10*3/uL [facility] Comment on above: Percent differential counts (%) should be interpreted in the context of the absolute cell counts (cells/uL). Neutrophils/100 WBC (Bld) 53.5 % 40.0 - 80.0 % [facility] Nucleated RBC/100 WBC (Bld) [Ratio] 0.0 % [facility] Platelets (Bld) [#/Vol] 178 10*3/uL [facility] RBC (Bld) [#/Vol] 3.89 10*6/uL Low [facility] WBC (Bld) [#/Vol] 5.0 10*3/uL [facility] Basophils (Bld) [#/Vol] 0.04 x10*3/uL Normal 0.00-0.10 [facility] Comment on above: Performed By: #### 5 7021-8 ####ANDI Cotter ([id number])[facility] ([facility])[address] [place] [address] Basophils/100 WBC (Bld) 0.8 % Normal 0.0-2.0 [facility] Comment on above: Performed By: #### 5 7021-8 ####ANDI Cotter ([id number])[facility] ([facility])[address] [place] [address] Eosinophils (Bld) [#/Vol] 0.23 x10*3/uL Normal 0.00-0.70 [facility] Comment on above: Performed By: #### 5 7021-8 ####ANDI Cotter ([id number])[facility] ([facility])[address] [place] [address] Eosinophils/100 WBC (Bld) 4.6 % Normal 0.0-6.0 [facility] Comment on above: Performed By: #### 5 7021-8 ####ANDI Cotter ([id number])[facility] ([facility])[address] [place] [address] Erythrocyte distribution width (RBC) [Ratio] 13.8 % Normal 11.5-14.5 [facility] Comment on above: Performed By: #### 5 7021-8 ####ANDI Cotter ([id number])[facility] ([facility])[address] [place] [address] Hematocrit (Bld) [Volume fraction] 36.5 % Normal 36.0-46.0 [facility] Comment on above: Performed By: #### 5 7021-8 ####ANDI CHAUDHARY L ([id number])[facility] ([facility])[address] [place] [address] Hemoglobin (Bld) [Mass/Vol] 11.1 g/dL Low 12.0-16.0 [facility] Comment on above: Performed By: #### 5 7021-8 ####ANDI Cotter ([id number])[facility] ([facility])[address] [place] [address] Immature granulocytes (Bld) [#/Vol] 0.03 x10*3/uL Normal 0.00-0.70 [facility] Comment on above: Performed By: #### 5 7021-8 ####ANDI Cotter ([id number])[facility] ([facility])[address] [place] [address] Immature granulocytes/100 WBC (Bld) 0.6 % Normal 0.0-0.9 [facility] Comment on above: Result Comment: Debbie ture Granulocyte Count (IG) includes promyelocytes, myelocytes and metamyelocytes but does not include bands. Percent differential counts (%) should be interpreted in the context of the absolute cell counts (cells/UL). Performed By: #### 5 7021-8 ####ANDI Cotter ([id number])[facility] ([facility])[address] [place] [address] Lymphocytes (Bld) [#/Vol] 1.55 x10*3/uL Normal 1.20-4.80 [facility] Comment on above: Performed By: #### 5 7021-8 ####ANDI Cotter ([id number])[facility] ([facility])[address] [place] [address] Lymphocytes/100 WBC (Bld) 30.8 % Normal 13.0-44.0 [facility] Comment on above: Performed By: #### 5 7021-8 ####ANDI Cotter ([id number])[facility] ([facility])[address] [place] [address] MCH (RBC) [Entitic mass] 28.5 pg Normal 26.0-34.0 [facility] Comment on above: Performed By: #### 5 7021-8 ####ANDI Cotter ([id number])[facility] ([facility])[address] [place] [address] MCHC (RBC) [Mass/Vol] 30.4 g/dL Low 32.0-36.0 [facility] Comment on above: Performed By: #### 5 7021-8 ####ANDI Cotter ([id number])[facility] ([facility])[address] [place] [address] MCV (RBC) [Entitic vol] 94 fL Normal 80-100 [facility] Comment on above: Performed By: #### 5 7021-8 ####ANDI Cotter ([id number])[facility] ([facility])[address] [place] [address] Monocytes (Bld) [#/Vol] 0.49 x10*3/uL Normal 0.10-1.00 [facility] Comment on above: Performed By: #### 5 7021-8 ####ANDI Cotter ([id number])[facility] ([facility])[address] [place] [address] Monocytes/100 WBC (Bld) 9.7 % Normal 2.0-10.0 [facility] Comment on above: Performed By: #### 5 7021-8 ####ANDI Cotter ([id number])[facility] ([facility])[address] [place] [address] Neutrophils (Bld) [#/Vol] 2.69 x10*3/uL Normal 1.20-7.70 [facility] Comment on above: Result Comment: Perc ent differential counts (%) should be interpreted in the context of the absolute cell counts (cells/uL). Performed By: #### 5 7021-8 ####ANDI Cotter ([id number])[facility] ([facility])[address] [place] [address] Neutrophils/100 WBC (Bld) 53.5 % Normal 40.0-80.0 [facility] Comment on above: Performed By: #### 5 7021-8 ####ANDI Cotter ([id number])[facility] ([facility])[address] [place] [address] Nucleated RBC/100 WBC (Bld) [Ratio] 0.0 /100 WBCs Normal 0.0-0.0 [facility] Comment on above: Performed By: #### 5 7021-8 ####ANDI Cotter ([id number])[facility] ([facility])[address] [place] [address] Platelets (Bld) [#/Vol] 178 x10*3/uL Normal 150-450 [facility] Comment on above: Performed By: #### 5 7021-8 ####ANDI Cotter ([id number])[facility] ([facility])[address] [place] [address] RBC (Bld) [#/Vol] 3.89 x10*6/uL Low 4.00-5.[address] [facility] Comment on above: Performed By: #### 5 7021-8 ####ANDI Cotter ([id number])[facility] ([facility])[address] [place] [address] WBC (Bld) [#/Vol] 5.0 x10*3/uL Normal 4.4-11.3 [facility] Comment on above: Performed By: #### 5 7021-8 ####ANDI Cotter ([id number])[facility] ([facility])[address] [place] [address] Coagulation tissue factor in ducedon 12-08-2023 PT Coag (PPP) [Time] 12.3 s Normal 9.8-12.[address] [facility] Comment on above: Performed By: #### 5 902-2 ####ANDI Cotter ([id number])[facility] ([facility])[address] [place] [address] Glucose Test strip manual (B ld) [Mass/Vol]on 12-08-2023 Glucose [Mass/Vol] 193 mg/dL High 74 - 99 mg/dL [facility] Interpretation and review of laboratory results Abnormal [facility] Glucose [Mass/Vol] 193 mg/dL High 74-99 [facility] Comment on above: Performed By: #### 2 341-6 ####ANDI Cotter ([id number])[facility] ([facility])[address] [place] [address] Glucose [Mass/Vol] 199 mg/dL High 74 - 99 mg/dL [facility] Interpretation and review of laboratory results Abnormal [facility] Glucose [Mass/Vol] 199 mg/dL High 74-99 [facility] Comment on above: Performed By: #### 2 341-6 ####ANDI Cotter ([id number])[facility] ([facility])[address] [place] [address] Hepatic function 2000 panelo n 12-08-2023 Albumin BCP dye [Mass/Vol] 3.9 g/dL 3.4 - 5.0 g/dL [facility] ALP [Catalytic activity/Vol] 107 U/L 33 - 110 U/L [facility] ALT With P-5'-P [Catalytic activity/Vol] 62 U/L High 7 - 45 U/L [facility] Comment on above: Patients treated wit h Sulfasalazine may generate falsely decreased results for ALT. AST With P-5'-P [Catalytic activity/Vol] 42 U/L High 9 - 39 U/L [facility] Bilirubin [Mass/Vol] 0.4 mg/dL 0.0 - 1 .2 mg/dL [facility] Bilirubin.direct [Mass/Vol] 0.1 mg/dL 0.0 - 0.3 mg/dL [facility] Interpretation and review of laboratory results Abnormal [facility] Protein [Mass/Vol] 6.5 g/dL 6.4 - 8.2 g/dL [facility] Albumin BCP dye [Mass/Vol] 3.9 g/dL Normal 3.4-5.0 [facility] Comment on above: Performed By: #### 2 4325-3 ####ANDI Cotter ([id number])[facility] ([facility])[address] [place] [address] ALP [Catalytic activity/Vol] 107 U/L Normal 33-110 [facility] Comment on above: Performed By: #### 2 5-3 ####ANDI CHAUDHARY L ([id number])[facility] ([facility])[address] [place] [address] ALT With P-5'-P [Catalytic activity/Vol] 62 U/L High 7-45 [facility] Comment on above: Result Comment: Evelyn ents treated with Sulfasalazine may generate falsely decreased results for ALT. Performed By: #### 2 4325-3 ####ANDI Cotter ([id number])[facility] ([facility])[address] [place] [address] AST With P-5'-P [Catalytic activity/Vol] 42 U/L High 9-39 [facility] Comment on above: Performed By: #### 2 4325-3 ####ANDI CHAUDHARY L ([id number])[facility] ([facility])[address] [place] [address] Bilirubin [Mass/Vol] 0.4 mg/dL Normal 0.0-1.[address] [facility] Comment on above: Performed By: #### 2 4325-3 ####ANDI RENEEER L ([id number])[facility] ([facility])[address] [place] [address] Bilirubin.direct [Mass/Vol] 0.1 mg/dL Normal 0.0-0.3 [facility] Comment on above: Performed By: #### 2 4325-3 ####ANDI Cotter ([id number])[facility] ([facility])[address] [place] [address] 77333 Protein [Mass/Vol] 6.5 g/dL Normal 6.4-8.2 [facility] Comment on above: Performed By: #### 2 4325-3 ####ANDI Cotter ([id number])[facility] ([facility])[address] [place] [address] 89346 MRSA isol Org specific cx Ql (Nose)Ordered By: Maral Alonzo on 12-08-2023 Interpretation and review of laboratory results Abnormal [facility] Staphylococcus sp identified Org specific cx Nom (Unsp spec) Isolated: Methicillin Resistant Staphylococcus aureus (MRSA) Abnormal [facility] Magnesiumon 12-08-2023 Magnesium [Mass/Vol] 1.89 mg/dL 1.60 - 2.40 mg/dL [facility] Magnesium [Mass/Vol] 1.89 mg/dL Normal 1.60-2.[address] [facility] Comment on above: Performed By: #### 1 9123-9 ####ANDI Cotter ([id number])[facility] ([facility])[address] [place], [place] [id number] No Panel Informationon 12-07 Interpretation and review of laboratory results Normal [facility] PT Coag (PPP) [Time]on 12-07 INR Coag (PPP) [Relative time] 1.1 {INR} 0.9 - 1.1 [facility] Interpretation and review of laboratory results Normal [facility] INR Coag (PPP) [Relative time] 1.1 Normal 0.9-1.1 [facility] Comment on above: Performed By: #### 5 902-2 ####ANDI Cotter ([id number])[facility] ([facility])[address] [place] [address]07 Phosphateon 12-08-2023 Phosphate [Mass/Vol] 3.8 mg/dL Normal 2.5-4.[address] [facility] Comment on above: Result Comment: The performance characteristics of phosphorus testing in heparinized plasma have been validated by the individual laboratory site where testing is performed. Testing on heparinized plasma is not approved by the FDA; however, such approval is not necessary. Performed By: #### 2 777-1 ####ANDI Cotter ([id number])[facility] ([facility])[address] [place] [address] 12118 Phosphoruson 12-08-2023 Phosphate [Mass/Vol] 3.8 mg/dL 2.5 - 4 .9 mg/dL [facility] Comment on above: The performance timi acteristics of phosphorus testing in heparinized plasma have been validated by the individual laboratory site where testing is performed. Testing on heparinized plasma is not approved by the FDA; however, such approval is not necessary. Protime-INRon 12-08-2023 PT Coag (PPP) [Time] 12.3 s [facility].doppler Lower extremity v ein - bilateralon 12-08-2023 [place] [id number] and Vascular Lab Report [facility] US LOWER EXTREMITY VENOUS DUPLEX BILATERAL Patient Name: DOROTHEA Lees Physician: [id number] Molina Wu DO Study Date: 12/08/2023 Ordering [id number] NANCY Dial Physician: JHONATAN MRN/PID: [id number] Technologist: Adrien Fish T Technologist 2: Date of /Age: 4 1975 / 47 years Gender: F Admission Status: Inpatient Location [facility] Performed: Diagnosis/ICD: Acute embolism and thrombosis of unspecified deep veins of bilateral distal lower extremity-I82.4Z3 CPT Codes: 96911 Peripheral venous duplex scan for DVT complete [...] Spontaneous/Phasic Peroneal Yes None PTV Yes None [id number] Molina Wu DO Final Molina Weaver DO - 12/08/2023 [place] [address] [address] [facility] US LOWER EXTREMITY VENOUS DUPLEX BILATERAL Patient Name: DOROTHEA Abdoulaye Lees Physician: [id number] Molina Wu DO Study Date: 12/08/2023 Ordering [id number] NANCY Dial Physician: JHONATAN MRN/PID: [id number] Technologist: Adrien Fish [facility] Technologist 2: Date of /Age: 4 1975 / 47 years Gender: F Admission Status: Inpatient Location [facility] Performed: Diagnosis/ICD: Acute embolism and thrombosis of unspecified deep veins of bilateral distal lower extremity-I82.4Z3 CPT Codes: 10443 Peripheral venous duplex scan for DVT complete [...] Spontaneous/Phasic Peroneal Yes None PTV Yes None [id number] Molina Wu DO Final [facility] Work Phone: Radiology Study observation (narrative) [facility] Work Phone: US.doppler Lower extremity v ein - bilateralOrdered By: Molina Wu on 12-08-2023 [facility] Work Phone: VASC US LOWER EXTREMITY VENO US DUPLEX BILATERALon 12-08-2023 VASC US LOWER EXTREMITY VENOUS DUPLEX BILATERAL Normal [facility] Basic metabolic 2000 panelon 12-07-2023 Anion gap [Moles/Vol] 17 mmol/L 10 - 2 0 mmol/L [facility] Calcium [Mass/Vol] 9.3 mg/dL 8.6 - 10. 6 mg/dL [facility] Chloride [Moles/Vol] 96 mmol/L Low 98 - 10 7 mmol/L [facility] CO2 [Moles/Vol] 25 mmol/L 21 - 32 mmol/L [facility] Creatinine [Mass/Vol] 0.74 mg/dL 0.50 - 1.05 mg/dL [facility] eGFR - PINF [facility] Comment on above: Calculations of estuardo mated GFR are performed using the 2020 CKD-EPI Study Refit equation without the race variable for the IDMS-Traceable creatinine methods. https://jasn.asnjournals.org/content//ASN.596474 9802 Glucose [Mass/Vol] 202 mg/dL High 74 - 99 mg/dL [facility] Interpretation and review of laboratory results Abnormal [facility] Potassium [Moles/Vol] 3.3 mmol/L Low 3.5 - 5.3 mmol/L [facility] Sodium [Moles/Vol] 135 mmol/L Low 136 - 145 mmol/L [facility] Urea nitrogen [Mass/Vol] 16 mg/dL 6 - 23 mg/dL [facility] Anion gap [Moles/Vol] 17 mmol/L Normal 10-20 [facility] Comment on above: Performed By: #### 2 4321-2 ####ANDI RENEEER L ([id number])[facility] ([facility])[address] [place] [address] Calcium [Mass/Vol] 9.3 mg/dL Normal 8.6-10.6 [facility] Comment on above: Performed By: #### 2 4321-2 ####ANDI MADRIDTZER L ([id number])[facility] ([facility])[address] [place] [address] Chloride [Moles/Vol] 96 mmol/L Low 98-[address] [facility] Comment on above: Performed By: #### 2 4321-2 ####ANDI RAJPUTMOTZER L ([id number])[facility] ([facility])[address] [place] [address] CO2 [Moles/Vol] 25 mmol/L Normal 21-32 [facility] Comment on above: Performed By: #### 2 4321-2 ####ANDI MADRIDTZER L ([id number])[facility] ([facility])[address] [place] [address] Creatinine [Mass/Vol] 0.74 mg/dL Normal 0.50-1.05 [facility] Comment on above: Performed By: #### 2 4321-2 ####ANDI MADRIDTZER L ([id number])[facility] ([facility])[address] [place] [address] GFR/1.73 sq M.predicted MDRD (S/P/Bld) [Vol rate/Area] mL/min/{1.73_m2} Normal >60 [facility] Comment on above: Result Comment: Calc ulations of estimated GFR are performed using the 2020 CKD-EPI Study Refit equation without the race variable for the IDMS-Traceable creatinine methods.https://jasn.asnjournals.org/content/early/ N.0781630587 Performed By: #### 2 4321-2 ####ANDI Cotter ([id number])[facility] ([facility])[address] [place] [address] Glucose [Mass/Vol] 202 mg/dL High 74-99 [facility] Comment on above: Performed By: #### 2 4321-2 ####ANDI Cotter ([id number])[facility] ([facility])[address] [place] [address]857 Potassium [Moles/Vol] 3.3 mmol/L Low 3.5-5.3 [facility] Comment on above: Performed By: #### 2 4321-2 ####ANDI Cotter ([id number])[facility] ([facility])[address] [place] [address] 68696 Sodium [Moles/Vol] 135 mmol/L Low 136-145 [facility] Comment on above: Performed By: #### 2 4321-2 ####ANDI Cotter ([id number])[facility] ([facility])[address] [place] [address] 37183 Urea nitrogen [Mass/Vol] 16 mg/dL Normal 6-23 [facility] Comment on above: Performed By: #### 2 4321-2 ####ANDI Cotter ([id number])[facility] ([facility])[address] [place] [address] 00570 CBC W Auto Differential pane l (Bld)on 12-07-2023 Basophils (Bld) [#/Vol] 0.04 10*3/uL [facility] Basophils/100 WBC (Bld) 0.7 % 0.0 - 2.0 % [facility] Eosinophils (Bld) [#/Vol] 0.17 10*3/uL [facility] Eosinophils/100 WBC (Bld) 2.9 % 0.0 - 6.0 % [facility] Erythrocyte distribution width (RBC) [Ratio] 13.9 % 11.5 - 14.5 % [facility] Hematocrit (Bld) [Volume fraction] 39.7 % 36.0 - 46.0 % [facility] Hemoglobin (Bld) [Mass/Vol] 12.5 g/dL 12.0 - 16.0 g/dL [facility] Immature granulocytes (Bld) [#/Vol] 0.02 10*3/uL [facility] Immature granulocytes/100 WBC (Bld) 0.3 % 0.0 - 0.9 % [facility] Comment on above: Immature Granulocyte Count (IG) includes promyelocytes, myelocytes and metamyelocytes but does not include bands. Percent differential counts (%) should be interpreted in the context of the absolute cell counts (cells/UL). Interpretation and review of laboratory results Abnormal [facility] Lymphocytes (Bld) [#/Vol] 1.63 10*3/uL [facility] Lymphocytes/100 WBC (Bld) 27.4 % 13.0 - 44.0 % [facility] MCH (RBC) [Entitic mass] 28.2 pg 26.0 - 34.0 pg [facility] MCHC (RBC) [Mass/Vol] 31.5 g/dL Low 32.0 - 36.0 g/dL [facility] MCV (RBC) [Entitic vol] 90 fL 80 - 100 fL [facility] Monocytes (Bld) [#/Vol] 0.48 10*3/uL [facility] Monocytes/100 WBC (Bld) 8.1 % 2.0 - 10.0 % [facility] Neutrophils (Bld) [#/Vol] 3.60 10*3/uL [facility] Comment on above: Percent differential counts (%) should be interpreted in the context of the absolute cell counts (cells/uL). Neutrophils/100 WBC (Bld) 60.6 % 40.0 - 80.0 % [facility] Nucleated RBC/100 WBC (Bld) [Ratio] 0.0 % [facility] Platelets (Bld) [#/Vol] 231 10*3/uL [facility] RBC (Bld) [#/Vol] 4.43 10*6/uL [facility] WBC (Bld) [#/Vol] 5.9 10*3/uL [facility] Basophils (Bld) [#/Vol] 0.04 x10*3/uL Normal 0.00-0.10 [facility] Comment on above: Performed By: #### 5 7021-8 ####ANDI Cotter ([id number])[facility] ([facility])[address] [place] [address] 69641 Basophils/100 WBC (Bld) 0.7 % Normal 0.0-2.0 [facility] Comment on above: Performed By: #### 5 70-8 ####ANDI CHAUDHARY L ([id number])[facility] ([facility])[address] [place] [address] 77942 Eosinophils (Bld) [#/Vol] 0.17 x10*3/uL Normal 0.00-0.70 [facility] Comment on above: Performed By: #### 5 7021-8 ####ANDI CHAUDHARY L ([id number])[facility] ([facility])[address] [place] [address] 91618 Eosinophils/100 WBC (Bld) 2.9 % Normal 0.0-6.0 [facility] Comment on above: Performed By: #### 5 7021-8 ####ANDI CHAUDHARY L ([id number])[facility] ([facility])[address] [place] [address] 42969 Erythrocyte distribution width (RBC) [Ratio] 13.9 % Normal 11.5-14.5 [facility] Comment on above: Performed By: #### 5 7021-8 ####ANDI CHAUDHARY L ([id number])[facility] ([facility])[address] [place] [address] 52308 Hematocrit (Bld) [Volume fraction] 39.7 % Normal 36.0-46.0 [facility] Comment on above: Performed By: #### 5 7021-8 ####ANDI CHAUDHARY L ([id number])[facility] ([facility])[address] [place] [address] Hemoglobin (Bld) [Mass/Vol] 12.5 g/dL Normal 12.0-16.0 [facility] Comment on above: Performed By: #### 5 7021-8 ####ANDI Cotter ([id number])[facility] ([facility])[address] [place] [address] Immature granulocytes (Bld) [#/Vol] 0.02 x10*3/uL Normal 0.00-0.70 [facility] Comment on above: Performed By: #### 5 7021-8 ####ANDI Cotter ([id number])[facility] ([facility])[address] [place] [address] Immature granulocytes/100 WBC (Bld) 0.3 % Normal 0.0-0.9 [facility] Comment on above: Result Comment: Debbie ture Granulocyte Count (IG) includes promyelocytes, myelocytes and metamyelocytes but does not include bands. Percent differential counts (%) should be interpreted in the context of the absolute cell counts (cells/UL). Performed By: #### 5 7021-8 ####ANDI Cotter ([id number])[facility] ([facility])[address] [place] [address] Lymphocytes (Bld) [#/Vol] 1.63 x10*3/uL Normal 1.20-4.80 [facility] Comment on above: Performed By: #### 5 7021-8 ####ANDI Cotter ([id number])[facility] ([facility])[address] [place] [address] Lymphocytes/100 WBC (Bld) 27.4 % Normal 13.0-44.0 [facility] Comment on above: Performed By: #### 5 7021-8 ####ANDI Cotter ([id number])[facility] ([facility])[address] [place] [address] MCH (RBC) [Entitic mass] 28.2 pg Normal 26.0-34.0 [facility] Comment on above: Performed By: #### 5 7021-8 ####ANDI Cotter ([id number])[facility] ([facility])[address] [place] [address] MCHC (RBC) [Mass/Vol] 31.5 g/dL Low 32.0-36.0 [facility] Comment on above: Performed By: #### 5 7021-8 ####ANDI Cotter ([id number])[facility] ([facility])[address] [place] [address] MCV (RBC) [Entitic vol] 90 fL Normal 80-100 [facility] Comment on above: Performed By: #### 5 7021-8 ####ANDI Cotter ([id number])[facility] ([facility])[address] [place] [address] 16593 Monocytes (Bld) [#/Vol] 0.48 x10*3/uL Normal 0.10-1.00 [facility] Comment on above: Performed By: #### 5 7021-8 ####ANDI Cotter ([id number])[facility] ([facility])[address] [place] [address] Monocytes/100 WBC (Bld) 8.1 % Normal 2.0-10.0 [facility] Comment on above: Performed By: #### 5 7021-8 ####ANDI RAJPUTMOFIDELINA Cotter ([id number])[facility] ([facility])[address] [place] [address] Neutrophils (Bld) [#/Vol] 3.60 x10*3/uL Normal 1.20-7.70 [facility] Comment on above: Result Comment: Perc ent differential counts (%) should be interpreted in the context of the absolute cell counts (cells/uL). Performed By: #### 5 7021-8 ####ANDI RAJPUTMOTZJYOTI L ([id number])[facility] ([facility])[address] [place] [address] Neutrophils/100 WBC (Bld) 60.6 % Normal 40.0-80.0 [facility] Comment on above: Performed By: #### 5 7021-8 ####ANDI Cotter ([id number])[facility] ([facility])[address] [place] [address] Nucleated RBC/100 WBC (Bld) [Ratio] 0.0 /100 WBCs Normal 0.0-0.0 [facility] Comment on above: Performed By: #### 5 7021-8 ####ANDI Cotter ([id number])[facility] ([facility])[address] [place] [address] 86223 Platelets (Bld) [#/Vol] 231 x10*3/uL Normal 150-450 [facility] Comment on above: Performed By: #### 5 7021-8 ####ANDI Cotter ([id number])[facility] ([facility])[address] [place] [address] 09599 RBC (Bld) [#/Vol] 4.43 x10*6/uL Normal 4.00-5.[address] [facility] Comment on above: Performed By: #### 5 7021-8 ####ANDI Cotter ([id number])[facility] ([facility])[address] [place] [address] 10818 WBC (Bld) [#/Vol] 5.9 x10*3/uL Normal 4.4-11.3 [facility] Comment on above: Performed By: #### 5 7021-8 ####ANDI Cotter ([id number])[facility] ([facility])[address] [place] [address] 15619 CBC panel Auto (Bld)on 12-06 Erythrocyte distribution width (RBC) [Ratio] 13.7 % 11.5 - 14.5 % [facility] Hematocrit (Bld) [Volume fraction] 36.4 % 36.0 - 46.0 % [facility] Hemoglobin (Bld) [Mass/Vol] 12.0 g/dL 12.0 - 16.0 g/dL [facility] Interpretation and review of laboratory results Normal [facility] MCH (RBC) [Entitic mass] 29.6 pg 26.0 - 34.0 pg [facility] MCHC (RBC) [Mass/Vol] 33.0 g/dL 32.0 - 36.0 g/dL [facility] MCV (RBC) [Entitic vol] 90 fL 80 - 100 fL [facility] Nucleated RBC/100 WBC (Bld) [Ratio] 0.0 % [facility] Platelets (Bld) [#/Vol] 207 10*3/uL [facility] RBC (Bld) [#/Vol] 4.06 10*6/uL [facility] WBC (Bld) [#/Vol] 5.8 10*3/uL [facility] Erythrocyte distribution width (RBC) [Ratio] 13.7 % Normal 11.5-14.5 [facility] Comment on above: Performed By: #### 5 8410-2 ####ANDI Cotter ([id number])[facility] ([facility])[address] [place] [address] Hematocrit (Bld) [Volume fraction] 36.4 % Normal 36.0-46.0 [facility] Comment on above: Performed By: #### 5 8410-2 ####ANDI Cotter ([id number])[facility] ([facility])[address] [place] [address] Hemoglobin (Bld) [Mass/Vol] 12.0 g/dL Normal 12.0-16.0 [facility] Comment on above: Performed By: #### 5 8410-2 ####ANDI Cotter ([id number])[facility] ([facility])[address] [place] [address] MCH (RBC) [Entitic mass] 29.6 pg Normal 26.0-34.0 [facility] Comment on above: Performed By: #### 5 8410-2 ####ANDI Cotter ([id number])[facility] ([facility])[address] [place] [address] MCHC (RBC) [Mass/Vol] 33.0 g/dL Normal 32.0-36.0 [facility] Comment on above: Performed By: #### 5 8410-2 ####ANDI Cotter ([id number])[facility] ([facility])[address] [place] [address] 74147 MCV (RBC) [Entitic vol] 90 fL Normal 80-100 [facility] Comment on above: Performed By: #### 5 8410-2 ####ANDI Cotter ([id number])[facility] ([facility])[address] [place] [address] 22207 Nucleated RBC/100 WBC (Bld) [Ratio] 0.0 /100 WBCs Normal 0.0-0.0 [facility] Comment on above: Performed By: #### 5 8410-2 ####ANDI Cotter ([id number])[facility] ([facility])[address] [place] [address] 90521 Platelets (Bld) [#/Vol] 207 x10*3/uL Normal 150-450 [facility] Comment on above: Performed By: #### 5 8410-2 ####ANDI Cotter ([id number])[facility] ([facility])[address] [place] [address] 60497 RBC (Bld) [#/Vol] 4.06 x10*6/uL Normal 4.00-5.[address] [facility] Comment on above: Performed By: #### 5 8410-2 ####ANDI Cotter ([id number])[facility] ([facility])[address] [place] [address] 02452 WBC (Bld) [#/Vol] 5.8 x10*3/uL Normal 4.4-11.3 [facility] Comment on above: Performed By: #### 5 8410-2 ####ANDI Cotter ([id number])[facility] ([facility])[address] [place] [address] 16437 Coagulation tissue factor in ducedon 12-07-2023 PT Coag (PPP) [Time] 12.9 s High 9.8-12.[address] [facility] Comment on above: Performed By: #### 5 902-2 ####ANDI Cotter ([id number])[facility] ([facility])[address] [place] [address] Electrocardiogram, 12-lead P RN ACS symptomsOrdered By: Evan Judge on 12-07-2023 Atrial Rate 111 BPM [facility] Work Phone: P [place] 41 degrees [facility] Work Phone: P Offset 207 ms [facility] Work Phone: P Onset 152 ms [facility] Work Phone: MD Interval 138 ms [facility] Work Phone: Q Onset 221 ms [facility] Work Phone: QRS Count 18 beats [facility] Work Phone: QRS Duration 84 ms [facility] Work Phone: QT Interval 350 ms [facility] Work Phone: QTC Calculation(Bazett) [address] [facility] Work Phone: QTC Fredericia 429 [facility] Work Phone: R [place] 44 degrees [facility] Work Phone: T [place] 40 degrees [facility] Work Phone: T Offset 396 ms [facility] Work Phone: Ventricular Rate 111 BPM [facility] Work Phone: [facility] Work Phone: Electrocardiogram, 12-lead P [...] Evan Judge ([id number]) on 12/07/2023 4:49:43 PM [facility] Work Phone: Glucose Test strip manual (B ld) [Mass/Vol]on 12-07-2023 Glucose [Mass/Vol] 227 mg/dL High 74 - 99 mg/dL [facility] Interpretation and review of laboratory results Abnormal [facility] Glucose [Mass/Vol] 227 mg/dL High 74-99 [facility] Comment on above: Performed By: #### 2 341-6 ####ANDI Cotter ([id number])[facility] ([facility])[address] [place] [address] 29276 Glucose [Mass/Vol] 182 mg/dL High 74 - 99 mg/dL [facility] Interpretation and review of laboratory results Abnormal [facility] Glucose [Mass/Vol] 182 mg/dL High 74-99 [facility] Comment on above: Performed By: #### 2 341-6 ####ANDI Cotter ([id number])[facility] ([facility])[address] [place] [address] 81042 Glucose [Mass/Vol] 174 mg/dL High 74 - 99 mg/dL [facility] Interpretation and review of laboratory results Abnormal [facility] Glucose [Mass/Vol] 174 mg/dL High 74-99 [facility] Comment on above: Performed By: #### 2 341-6 ####ANDI Cotter ([id number])[facility] ([facility])[address] [place] [address] 15649 Glucose [Mass/Vol] 211 mg/dL High 74 - 99 mg/dL [facility] Interpretation and review of laboratory results Abnormal [facility] Glucose [Mass/Vol] 211 mg/dL High 74-99 [facility] Comment on above: Performed By: #### 2 341-6 ####ANDI Cotter ([id number])[facility] ([facility])[address] [place] [address] Glucose [Mass/Vol] 234 mg/dL High 74 - 99 mg/dL [facility] Interpretation and review of laboratory results Abnormal [facility] Glucose [Mass/Vol] 234 mg/dL High 74-99 [facility] Comment on above: Performed By: #### 2 341-6 ####ANDI Cotter ([id number])[facility] ([facility])[address] [place] [address] Heparin Assay, UFHon 024 Heparin unfractionated Chromogenic method Qn (PPP) 0.2 See Comment Below for Therapeutic Ranges IU/mL [facility] Heparin unfractionated Chrom ogenic method Qn (PPP)on 12-07-2023 Interpretation and review of laboratory results Normal [facility] The therapeutic reference range for UFH may be either 0.3-0.6 IU/mL or 0.3-0.7 IU/mL based on the clinical setting for anticoagulant therapy and the associated nomogram used. For Heparin dosing guidelines based on clinical scenario and Heparin Assay results, please refer to local Pharmacy and the [facility] Guidelines for Anticoagulation Therapy available on the [facility] intranet at: [email or web address] [facility] Hepatic function 2000 panelo n 12-07-2023 Albumin BCP dye [Mass/Vol] 4.3 g/dL 3.4 - 5.0 g/dL [facility] ALP [Catalytic activity/Vol] 112 U/L High 33 - 110 U/L [facility] ALT With P-5'-P [Catalytic activity/Vol] 70 U/L High 7 - 45 U/L [facility] Comment on above: Patients treated wit h Sulfasalazine may generate falsely decreased results for ALT. AST With P-5'-P [Catalytic activity/Vol] 39 U/L 9 - 39 U/L [facility] Bilirubin [Mass/Vol] 0.5 mg/dL 0.0 - 1 .2 mg/dL [facility] Bilirubin.direct [Mass/Vol] 0.2 mg/dL 0.0 - 0.3 mg/dL [facility] Interpretation and review of laboratory results Abnormal [facility] Protein [Mass/Vol] 7.3 g/dL 6.4 - 8.2 g/dL [facility] Albumin BCP dye [Mass/Vol] 4.3 g/dL Normal 3.4-5.0 [facility] Comment on above: Performed By: #### 2 0225-3 ####ANDI Cotter ([id number])[facility] ([facility])[address] [place] [address] ALP [Catalytic activity/Vol] 112 U/L High 33-110 [facility] Comment on above: Performed By: #### 2 1735-3 ####ANDI Cotter ([id number])[facility] ([facility])[address] [place] [address] ALT With P-5'-P [Catalytic activity/Vol] 70 U/L High 7-45 [facility] Comment on above: Result Comment: Evelyn ents treated with Sulfasalazine may generate falsely decreased results for ALT. Performed By: #### 2 4325-3 ####ANDI Cotter ([id number])[facility] ([facility])[address] [place] [address] AST With P-5'-P [Catalytic activity/Vol] 39 U/L Normal 9-39 [facility] Comment on above: Performed By: #### 2 4395-3 ####ANDI Cotter ([id number])[facility] ([facility])[address] [place] [address] Bilirubin [Mass/Vol] 0.5 mg/dL Normal 0.0-1.[address] [facility] Comment on above: Performed By: #### 2 9215-3 ####ANDI Cotter ([id number])[facility] ([facility])[address] [place] [address] Bilirubin.direct [Mass/Vol] 0.2 mg/dL Normal 0.0-0.3 [facility] Comment on above: Performed By: #### 2 4325-3 ####ANDI Cotter ([id number])[facility] ([facility])[address] [place] [address] Protein [Mass/Vol] 7.3 g/dL Normal 6.4-8.2 [facility] Comment on above: Performed By: #### 2 4325-3 ####ANDI Cotter ([id number])[facility] ([facility])[address] [place] [address] Magnesiumon 12-07-2023 Magnesium [Mass/Vol] 1.98 mg/dL 1.60 - 2.40 mg/dL [facility] Magnesium [Mass/Vol] 1.98 mg/dL Normal 1.60-2.[address] [facility] Comment on above: Performed By: #### 1 9123-9 ####ANDI Cotter ([id number])[facility] ([facility])[address] [place] [address] No Panel Informationon 12-06 Interpretation and review of laboratory results Normal [facility] PT Coag (PPP) [Time]on 12-06 INR Coag (PPP) [Relative time] 1.1 {INR} 0.9 - 1.1 [facility] Interpretation and review of laboratory results Abnormal [facility] INR Coag (PPP) [Relative time] 1.1 Normal 0.9-1.1 [facility] Comment on above: Performed By: #### 5 902-2 ####ANDI Cotter ([id number])[facility] ([facility])[address] [place] [address] Phosphateon 12-07-2023 Phosphate [Mass/Vol] 3.2 mg/dL Normal 2.5-4.[address] [facility] Comment on above: Result Comment: The performance characteristics of phosphorus testing in heparinized plasma have been validated by the individual laboratory site where testing is performed. Testing on heparinized plasma is not approved by the FDA; however, such approval is not necessary. Performed By: #### 2 777-1 ####ANDI Cotter ([id number])[facility] ([facility])[address] [place] [address] Phosphoruson 12-07-2023 Phosphate [Mass/Vol] 3.2 mg/dL 2.5 - 4 .9 mg/dL [facility] Comment on above: The performance timi acteristics of phosphorus testing in heparinized plasma have been validated by the individual laboratory site where testing is performed. Testing on heparinized plasma is not approved by the FDA; however, such approval is not necessary. Protime-INRon 12-07-2023 PT Coag (PPP) [Time] 12.9 s High [facility] Staphylococcus aureus.methic illin resistant isolateon 12-07-2023 MRSA isol Org specific cx Ql (Nose) Abnormal [facility] Comment on above: Performed By: #### 5 2969-3 ####ANDI Cotter ([id number])[facility] ([facility])[address] [place] [address] Basic metabolic 2000 panelon 12-06-2023 Anion gap [Moles/Vol] 17 mmol/L 10 - 2 0 mmol/L [facility] Calcium [Mass/Vol] 9.8 mg/dL 8.6 - 10. 6 mg/dL [facility] Chloride [Moles/Vol] 98 mmol/L 98 - 10 7 mmol/L [facility] CO2 [Moles/Vol] 26 mmol/L 21 - 32 mmol/L [facility] Creatinine [Mass/Vol] 0.70 mg/dL 0.50 - 1.05 mg/dL [facility] eGFR - PINF [facility] Comment on above: Calculations of estuardo mated GFR are performed using the 2020 CKD-EPI Study Refit equation without the race variable for the IDMS-Traceable creatinine methods. https://jasn.asnjournals.org/content//ASN.690916 7826 Glucose [Mass/Vol] 162 mg/dL High 74 - 99 mg/dL [facility] Interpretation and review of laboratory results Abnormal [facility] Potassium [Moles/Vol] 3.8 mmol/L 3.5 - 5.3 mmol/L [facility] Sodium [Moles/Vol] 137 mmol/L 136 - 145 mmol/L [facility] Urea nitrogen [Mass/Vol] 18 mg/dL 6 - 23 mg/dL [facility] Anion gap [Moles/Vol] 17 mmol/L Normal 10-20 [facility] Comment on above: Performed By: #### 2 4321-2 ####ANDI CHAUDHARY L ([id number])[facility] ([facility])[address] [place] [address] Calcium [Mass/Vol] 9.8 mg/dL Normal 8.6-10.6 [facility] Comment on above: Performed By: #### 2 4321-2 ####ANDI CHAUDHARY L ([id number])[facility] ([facility])[address] [place] [address] Chloride [Moles/Vol] 98 mmol/L Normal 98-[address] [facility] Comment on above: Performed By: #### 2 4321-2 ####ANDI RAJPUTMOTZER L ([id number])[facility] ([facility])[address] [place] [address] CO2 [Moles/Vol] 26 mmol/L Normal 21-32 [facility] Comment on above: Performed By: #### 2 4321-2 ####ANDI CHAUDHARY L ([id number])[facility] ([facility])[address] [place] [address] Creatinine [Mass/Vol] 0.70 mg/dL Normal 0.50-1.05 [facility] Comment on above: Performed By: #### 2 4321-2 ####ANDI CHAUDHARY L ([id number])[facility] ([facility])[address] [place] [address] GFR/1.73 sq M.predicted MDRD (S/P/Bld) [Vol rate/Area] mL/min/{1.73_m2} Normal >60 [facility] Comment on above: Result Comment: Calc ulations of estimated GFR are performed using the 2020 CKD-EPI Study Refit equation without the race variable for the IDMS-Traceable creatinine methods.https://jasn.asnjournals.org/content/early/ N.6941066717 Performed By: #### 2 4321-2 ####ANDI Cotter ([id number])[facility] ([facility])[address] [place] [address] Glucose [Mass/Vol] 162 mg/dL High 74-99 [facility] Comment on above: Performed By: #### 2 4321-2 ####ANDI CHAUDHARY L ([id number])[facility] ([facility])[address] [place] [address] Potassium [Moles/Vol] 3.8 mmol/L Normal 3.5-5.3 [facility] Comment on above: Performed By: #### 2 4321-2 ####ANDI RAJPUTMOTZER L ([id number])[facility] ([facility])[address] [place] [address] Sodium [Moles/Vol] 137 mmol/L Normal 136-145 [facility] Comment on above: Performed By: #### 2 4321-2 ####ANDI RAJPUTMOTZER L ([id number])[facility] ([facility])[address] [place] [address] Urea nitrogen [Mass/Vol] 18 mg/dL Normal 6-23 [facility] Comment on above: Performed By: #### 2 4321-2 ####ANDI RAJPUTMOTZER L ([id number])[facility] ([facility])[address] [place] [address] Blood type and Indirect anti body screen panel (Bld)on 12-06-2023 ABO group Nom (Bld) A [facility] Blood group antibody screen Ql Negative [facility] D Ag Ql (Bld) Negative [facility] Review your Rh Negat rowena female patient's potential need for Rh Immune Globulin (RhIg)administration. [facility] ABO group Nom (Bld) A Normal [facility] Comment on above: Order Comment: Revie w your Rh Negative female patient's potential need for Rh Immune Globulin (RhIg)administration. Performed By: #### 3 4532-2 ####ANDI Cotter ([id number])[facility] ([facility])[address] [place] [address] Blood group antibody screen Ql Negative Normal [facility] Comment on above: Order Comment: Revie w your Rh Negative female patient's potential need for Rh Immune Globulin (RhIg)administration. Performed By: #### 3 4532-2 ####ANDI Cotter ([id number])[facility] ([facility])[address] [place] [address] D Ag Ql (Bld) Negative [facility] Comment on above: Order Comment: Revie w your Rh Negative female patient's potential need for Rh Immune Globulin (RhIg)administration. Performed By: #### 3 4532-2 ####ANDI Cotter ([id number])[facility] ([facility])[address] [place] [address] CBC W Auto Differential pane l (Bld)on 12-06-2023 Basophils (Bld) [#/Vol] 0.06 10*3/uL [facility] Basophils/100 WBC (Bld) 0.9 % 0.0 - 2.0 % [facility] Eosinophils (Bld) [#/Vol] 0.26 10*3/uL [facility] Eosinophils/100 WBC (Bld) 4.0 % 0.0 - 6.0 % [facility] Erythrocyte distribution width (RBC) [Ratio] 14.1 % 11.5 - 14.5 % [facility] Hematocrit (Bld) [Volume fraction] 40.2 % 36.0 - 46.0 % [facility] Hemoglobin (Bld) [Mass/Vol] 12.8 g/dL 12.0 - 16.0 g/dL [facility] Immature granulocytes (Bld) [#/Vol] 0.04 10*3/uL [facility] Immature granulocytes/100 WBC (Bld) 0.6 % 0.0 - 0.9 % [facility] Comment on above: Immature Granulocyte Count (IG) includes promyelocytes, myelocytes and metamyelocytes but does not include bands. Percent differential counts (%) should be interpreted in the context of the absolute cell counts (cells/UL). Interpretation and review of laboratory results Abnormal [facility] Lymphocytes (Bld) [#/Vol] 2.18 10*3/uL [facility] Lymphocytes/100 WBC (Bld) 33.5 % 13.0 - 44.0 % [facility] MCH (RBC) [Entitic mass] 29.4 pg 26.0 - 34.0 pg [facility] MCHC (RBC) [Mass/Vol] 31.8 g/dL Low 32.0 - 36.0 g/dL [facility] MCV (RBC) [Entitic vol] 92 fL 80 - 100 fL [facility] Monocytes (Bld) [#/Vol] 0.43 10*3/uL [facility] Monocytes/100 WBC (Bld) 6.6 % 2.0 - 10.0 % [facility] Neutrophils (Bld) [#/Vol] 3.54 10*3/uL [facility] Comment on above: Percent differential counts (%) should be interpreted in the context of the absolute cell counts (cells/uL). Neutrophils/100 WBC (Bld) 54.4 % 40.0 - 80.0 % [facility] Nucleated RBC/100 WBC (Bld) [Ratio] 0.0 % [facility] Platelets (Bld) [#/Vol] 261 10*3/uL [facility] RBC (Bld) [#/Vol] 4.35 10*6/uL [facility] WBC (Bld) [#/Vol] 6.5 10*3/uL [facility] Basophils (Bld) [#/Vol] 0.06 x10*3/uL Normal 0.00-0.10 [facility] Comment on above: Performed By: #### 5 7021-8 ####ANDI Cotter ([id number])[facility] ([facility])[address] [place] [address] Basophils/100 WBC (Bld) 0.9 % Normal 0.0-2.0 [facility] Comment on above: Performed By: #### 5 7021-8 ####ANDI Cotter ([id number])[facility] ([facility])[address] [place] [address] Eosinophils (Bld) [#/Vol] 0.26 x10*3/uL Normal 0.00-0.70 [facility] Comment on above: Performed By: #### 5 7021-8 ####ANDI Cotter ([id number])[facility] ([facility])[address] [place] [address] Eosinophils/100 WBC (Bld) 4.0 % Normal 0.0-6.0 [facility] Comment on above: Performed By: #### 5 7021-8 ####ANDI Cotter ([id number])[facility] ([facility])[address] [place] [address] Erythrocyte distribution width (RBC) [Ratio] 14.1 % Normal 11.5-14.5 [facility] Comment on above: Performed By: #### 5 7021-8 ####ANDI Cotter ([id number])[facility] ([facility])[address] [place] [address] Hematocrit (Bld) [Volume fraction] 40.2 % Normal 36.0-46.0 [facility] Comment on above: Performed By: #### 5 7021-8 ####ANDI Cotter ([id number])[facility] ([facility])[address] [place] [address] Hemoglobin (Bld) [Mass/Vol] 12.8 g/dL Normal 12.0-16.0 [facility] Comment on above: Performed By: #### 5 7021-8 ####ANDI Cotter ([id number])[facility] ([facility])[address] [place] [address] Immature granulocytes (Bld) [#/Vol] 0.04 x10*3/uL Normal 0.00-0.70 [facility] Comment on above: Performed By: #### 5 7021-8 ####ANDI CHAUDHARY L ([id number])[facility] ([facility])[address] [place] [address] Immature granulocytes/100 WBC (Bld) 0.6 % Normal 0.0-0.9 [facility] Comment on above: Result Comment: Debbie ture Granulocyte Count (IG) includes promyelocytes, myelocytes and metamyelocytes but does not include bands. Percent differential counts (%) should be interpreted in the context of the absolute cell counts (cells/UL). Performed By: #### 5 7021-8 ####ANDI Cotter ([id number])[facility] ([facility])[address] [place] [address] Lymphocytes (Bld) [#/Vol] 2.18 x10*3/uL Normal 1.20-4.80 [facility] Comment on above: Performed By: #### 5 7021-8 ####ANDI Cotter ([id number])[facility] ([facility])[address] [place] [address] Lymphocytes/100 WBC (Bld) 33.5 % Normal 13.0-44.0 [facility] Comment on above: Performed By: #### 5 7021-8 ####ANDI Cotter ([id number])[facility] ([facility])[address] [place] [address] MCH (RBC) [Entitic mass] 29.4 pg Normal 26.0-34.0 [facility] Comment on above: Performed By: #### 5 7021-8 ####NADI Cotter ([id number])[facility] ([facility])[address] [place] [address] MCHC (RBC) [Mass/Vol] 31.8 g/dL Low 32.0-36.0 [facility] Comment on above: Performed By: #### 5 7021-8 ####ANDI Cotter ([id number])[facility] ([facility])[address] [place] [address] MCV (RBC) [Entitic vol] 92 fL Normal 80-100 [facility] Comment on above: Performed By: #### 5 7021-8 ####ANDI Cotter ([id number])[facility] ([facility])[address] [place] [address] Monocytes (Bld) [#/Vol] 0.43 x10*3/uL Normal 0.10-1.00 [facility] Comment on above: Performed By: #### 5 7021-8 ####ANDI Cotter ([id number])[facility] ([facility])[address] [place] [address] Monocytes/100 WBC (Bld) 6.6 % Normal 2.0-10.0 [facility] Comment on above: Performed By: #### 5 7021-8 ####ANDI Cotter ([id number])[facility] ([facility])[address] [place] [address] Neutrophils (Bld) [#/Vol] 3.54 x10*3/uL Normal 1.20-7.70 [facility] Comment on above: Result Comment: Perc ent differential counts (%) should be interpreted in the context of the absolute cell counts (cells/uL). Performed By: #### 5 7021-8 ####ANDI Cotter ([id number])[facility] ([facility])[address] [place] [address] Neutrophils/100 WBC (Bld) 54.4 % Normal 40.0-80.0 [facility] Comment on above: Performed By: #### 5 7021-8 ####ANDI Cotter ([id number])[facility] ([facility])[address] [place] [address] Nucleated RBC/100 WBC (Bld) [Ratio] 0.0 /100 WBCs Normal 0.0-0.0 [facility] Comment on above: Performed By: #### 5 7021-8 ####ANDI RENEEER L ([id number])[facility] ([facility])[address] [place] [address] Platelets (Bld) [#/Vol] 261 x10*3/uL Normal 150-450 [facility] Comment on above: Performed By: #### 5 7021-8 ####ANDI RAJPUTMOTZER L ([id number])[facility] ([facility])[address] [place] [address] RBC (Bld) [#/Vol] 4.35 x10*6/uL Normal 4.00-5.[address] [facility] Comment on above: Performed By: #### 5 7021-8 ####ANDI RAJPUTMOTZER L ([id number])[facility] ([facility])[address] [place] [address] WBC (Bld) [#/Vol] 6.5 x10*3/uL Normal 4.4-11.3 [facility] Comment on above: Performed By: #### 5 7021-8 ####ANDI RAJPUTMOTZER L ([id number])[facility] ([facility])[address] [place] [address] CT ABDOMEN PELVIS W IV CONTR Reny 12-06-2023 CT ABDOMEN PELVIS W IV CONTRAST Normal [facility] CT Abdomen and Pelvis W [...] Rommel Malagon. This study was interpreted at [place], [place]. MACRO: Critical Finding: See findings. Notification was initiated on 12/06/2023 at 9:31 am by Rommel Malagon. (-OCF-) Instructions: Signed by: Letha Pennington 12/06/2023 12:19 PM Dictation workstation: [id number] [facility] MMODAL Interpreted By: Letha Pennington and [place] Zachary STUDY: CT ABDOMEN PELVIS W IV CONTRAST; 12/06/2023 8:39 am INDICATION: Signs/Symptoms:assessme nt of pancreatic pseudocyst s/p cystgastrostomy 11/14. COMPARISON: CT abdomen/pelvis 11/10/2023. ACCESSION NUMBER(S): [id number] ORDERING CLINICIAN: JOHAN BURTON TECHNIQUE: CT of [...] 11/14. COMPARISON: CT abdomen/pelvis 11/10/2023. ACCESSION NUMBER(S): [id number] ORDERING CLINICIAN: JOHAN BURTON TECHNIQUE: CT of [...] Rommel Malagon. This study was interpreted at [place], [place]. MACRO: Critical Finding: See findings. Notification was initiated on 12/06/2023 at 9:31 am by Rommel Malagon. (-OCF-) Instructions: Signed by: Letha Pennington 12/06/2023 12:19 PM Dictation workstation: [id number] [facility] Work Phone: Radiology Study observation (narrative) [facility] Work Phone: CT Abdomen and Pelvis W cont rast IVOrdered By: Letha Pennington on 12-06-2023 [facility] Work Phone: ECG 12-LEADon 12-06-2023 ECG 12-LEAD Ventricular Rate 111 Atrial Rate 111 P-R Interval 138 QRS Duration 84 Q-T Interval 350 QTC Calculation(Bazett) 476 P [place] 41 R [place] 44 T [place] 40 QRS Count 18 Q Onset 221 P Onset 152 P Offset 207 T Offset 396 QTC Fredericia 429 Diagnosis Sinus tachycardia Otherwise normal ECG When compared with ECG of 10-NOV-2023 13:41, Minimal criteria for Anterior infarct are no longer Present Confirmed by Evan Judge ([id number]) on 12/07/2023 4:49:43 PM Normal [facility] Glucose Test strip manual (B ld) [Mass/Vol]on 12-06-2023 Glucose [Mass/Vol] 138 mg/dL High 74 - 99 mg/dL [facility] Interpretation and review of laboratory results Abnormal [facility] Glucose [Mass/Vol] 138 mg/dL High 74-99 [facility] Comment on above: Performed By: #### 2 341-6 ####ANDI Cotter ([id number])[facility] ([facility])[address] [place] [address] Glucose [Mass/Vol] 172 mg/dL High 74 - 99 mg/dL [facility] Interpretation and review of laboratory results Abnormal [facility] Glucose [Mass/Vol] 172 mg/dL High 74-99 [facility] Comment on above: Performed By: #### 2 341-6 ####ANDI Cotter ([id number])[facility] ([facility])[address] [place] [address] Glucose [Mass/Vol] 166 mg/dL High 74 - 99 mg/dL [facility] Interpretation and review of laboratory results Abnormal [facility] Glucose [Mass/Vol] 166 mg/dL High 74-99 [facility] Comment on above: Performed By: #### 2 341-6 ####ANDI Cotter ([id number])[facility] ([facility])[address] [place] [address] Heparin Assay, UFHon 024 Heparin unfractionated Chromogenic method Qn (PPP) 0.2 See Comment Below for Therapeutic Ranges IU/mL [facility] Heparin unfractionated Chrom ogenic method Qn (PPP)on 12-06-2023 Interpretation and review of laboratory results Normal [facility] The therapeutic reference range for UFH may be either 0.3-0.6 IU/mL or 0.3-0.7 IU/mL based on the clinical setting for anticoagulant therapy and the associated nomogram used. For Heparin dosing guidelines based on clinical scenario and Heparin Assay results, please refer to local Pharmacy and the [facility] Guidelines for Anticoagulation Therapy available on the [facility] intranet at: [email or web address]_Guidelines_for_Antic oagu.aspx [facility] Heparin.unfractionatedon Heparin unfractionated Chromogenic method Qn (PPP) 0.2 IU/mL Normal See Comment Below for Therapeutic Ranges [facility] Comment on above: [...] please refer to local Pharmacy and the [facility] Guidelines for Anticoagulation Therapy available on the [facility] intranet at: [email or web address]_Guidelines_for_[email or web address] Performed By: #### 3 274-8 ####ANDI Cotter ([id number])[facility] ([facility])10 [place] [address] Heparin unfractionated Chromogenic method Qn (PPP) 0.2 IU/mL Normal See Comment Below for Therapeutic Ranges [facility] Comment on above: Order Comment: If bl eeding from any site at anytime. Nursing to release order.The therapeutic reference range for UFH may be either 0.3-0.6 IU/mL or 0.3-0.7 IU/mL based on the clinical setting for anticoagulant therapy and the associated nomogram used. For Heparin dosing guidelines based on clinical scenario and Heparin Assay results, please refer to local Pharmacy and the [facility] Guidelines for Anticoagulation Therapy available on the [facility] intranet at: [email or web address] Performed By: #### 3 274-8 ####ANDI Cotter ([id number])[facility] ([facility])[address] [place] [address] Magnesiumon 12-06-2023 Magnesium [Mass/Vol] 2.16 mg/dL 1.60 - 2.40 mg/dL [facility] Magnesium [Mass/Vol] 2.16 mg/dL Normal 1.60-2.[address] [facility] Comment on above: Performed By: #### 1 9123-9 ####ANDI Cotter ([id number])[facility] ([facility])[address] [place] [address] Magnesium [Mass/Vol]on 12-05 Interpretation and review of laboratory results Normal [facility] No Panel Informationon 12-05 [facility] PT and aPTT panel Coag (PPP) on 12-06-2023 aPTT Coag (PPP) [Time] 37 s [facility] INR Coag (PPP) [Relative time] 1.0 {INR} 0.9 - 1.1 [facility] Interpretation and review of laboratory results Normal [facility] PT Coag (PPP) [Time] 11.6 s [facility] The APTT is no longe r used for monitoring Unfractionated Heparin Therapy. For monitoring Heparin Therapy, use the Heparin Assay. [facility] aPTT Coag (PPP) [Time] 37 s Normal 27-38 [facility] Comment on above: Order Comment: The A PTT is no longer used for monitoring Unfractionated Heparin Therapy. For monitoring Heparin Therapy, use the Heparin Assay. Performed By: #### 3 4529-8 ####ANDI Cotter ([id number])[facility] ([facility])[address] [place] [address] INR Coag (PPP) [Relative time] 1.0 Normal 0.9-1.1 [facility] Comment on above: Order Comment: The A PTT is no longer used for monitoring Unfractionated Heparin Therapy. For monitoring Heparin Therapy, use the Heparin Assay. Performed By: #### 3 4529-8 ####ANDI Cotter ([id number])[facility] ([facility])[address] [place] [address] PT Coag (PPP) [Time] 11.6 s Normal 9.8-12.[address] [facility] Comment on above: Order Comment: The A PTT is no longer used for monitoring Unfractionated Heparin Therapy. For monitoring Heparin Therapy, use the Heparin Assay. Performed By: #### 3 4529-8 ####ANDI Cotter ([id number])[facility] ([facility])[address] [place] [address] Blood type and Indirect anti body screen panel (Bld)on 12-05-2023 ABO group Nom (Bld) A [facility] Blood group antibody screen Ql Negative [facility] D Ag Ql (Bld) Negative [facility] Review your Rh Negat rowena female patient's potential need for Rh Immune Globulin (RhIg)administration. [facility] ABO group Nom (Bld) A Normal [facility] Comment on above: Order Comment: Revie w your Rh Negative female patient's potential need for Rh Immune Globulin (RhIg)administration. Performed By: #### 3 4532-2 ####ANDI Cotter ([id number])[facility] ([facility])[address] [place] [address] Blood group antibody screen Ql Negative Normal [facility] Comment on above: Order Comment: Revie w your Rh Negative female patient's potential need for Rh Immune Globulin (RhIg)administration. Performed By: #### 3 4532-2 ####ANDI Cotter ([id number])[facility] ([facility])[address] [place] [address] [place] [address] D Ag Ql (Bld) Negative Normal [facility] Comment on above: Order Comment: Nemesio martinez your Rh Negative female patient's potential need for Rh Immune Globulin (RhIg)administration. Performed By: #### 3 4532-2 ####ANDI Cotter ([id number])[facility] ([facility])[address] [place] [address] CBC panel Auto (Bld)on 12-04 Erythrocyte distribution width (RBC) [Ratio] 14.3 % 11.5 - 14.5 % [facility] Hematocrit (Bld) [Volume fraction] 38.3 % 36.0 - 46.0 % [facility] Hemoglobin (Bld) [Mass/Vol] 12.1 g/dL 12.0 - 16.0 g/dL [facility] Interpretation and review of laboratory results Abnormal [facility] MCH (RBC) [Entitic mass] 29.1 pg 26.0 - 34.0 pg [facility] MCHC (RBC) [Mass/Vol] 31.6 g/dL Low 32.0 - 36.0 g/dL [facility] MCV (RBC) [Entitic vol] 92 fL 80 - 100 fL [facility] Nucleated RBC/100 WBC (Bld) [Ratio] 0.0 % [facility] Platelets (Bld) [#/Vol] 268 10*3/uL [facility] RBC (Bld) [#/Vol] 4.16 10*6/uL [facility] WBC (Bld) [#/Vol] 8.0 10*3/uL [facility] Erythrocyte distribution width (RBC) [Ratio] 14.3 % Normal 11.5-14.5 [facility] Comment on above: Performed By: #### 5 8410-2 ####ANDI Cotter ([id number])[facility] ([facility])[address] [place] [address] Hematocrit (Bld) [Volume fraction] 38.3 % Normal 36.0-46.0 [facility] Comment on above: Performed By: #### 5 7510-2 ####ANDI Cotter ([id number])[facility] ([facility])[address] [place] [address] Hemoglobin (Bld) [Mass/Vol] 12.1 g/dL Normal 12.0-16.0 [facility] Comment on above: Performed By: #### 5 8410-2 ####ANDI Cotter ([id number])[facility] ([facility])[address] [place] [address] MCH (RBC) [Entitic mass] 29.1 pg Normal 26.0-34.0 [facility] Comment on above: Performed By: #### 5 8410-2 ####ANDI Cotter ([id number])[facility] ([facility])[address] [place] [address] MCHC (RBC) [Mass/Vol] 31.6 g/dL Low 32.0-36.0 [facility] Comment on above: Performed By: #### 5 8410-2 ####ANDI Cotter ([id number])[facility] ([facility])[address] [place] [address] MCV (RBC) [Entitic vol] 92 fL Normal 80-100 [facility] Comment on above: Performed By: #### 5 8410-2 ####ANDI Cotter ([id number])[facility] ([facility])[address] [place] [address] Nucleated RBC/100 WBC (Bld) [Ratio] 0.0 /100 WBCs Normal 0.0-0.0 [facility] Comment on above: Performed By: #### 5 8410-2 ####ANDI Cotter ([id number])[facility] ([facility])[address] [place] [address] Platelets (Bld) [#/Vol] 268 x10*3/uL Normal 150-450 [facility] Comment on above: Performed By: #### 5 8410-2 ####ANDI Cotter ([id number])[facility] ([facility])[address] [place] [address] RBC (Bld) [#/Vol] 4.16 x10*6/uL Normal 4.00-5.[address] [facility] Comment on above: Performed By: #### 5 8410-2 ####ANDI Cotter ([id number])[facility] ([facility])[address] [place] [address] WBC (Bld) [#/Vol] 8.0 x10*3/uL Normal 4.4-11.3 [facility] Comment on above: Performed By: #### 5 8410-2 ####ANDI Cotter ([id number])[facility] ([facility])[address] [place] [address] Comprehensive metabolic 2000 panelon 12-05-2023 Albumin BCP dye [Mass/Vol] 4.0 g/dL 3.4 - 5.0 g/dL [facility] ALP [Catalytic activity/Vol] 93 U/L 33 - 110 U/L [facility] ALT With P-5'-P [Catalytic activity/Vol] 61 U/L High 7 - 45 U/L [facility] Comment on above: Patients treated wit h Sulfasalazine may generate falsely decreased results for ALT. Anion gap [Moles/Vol] 16 mmol/L 10 - 2 0 mmol/L [facility] AST With P-5'-P [Catalytic activity/Vol] 24 U/L 9 - 39 U/L [facility] Bilirubin [Mass/Vol] 0.3 mg/dL 0.0 - 1 .2 mg/dL [facility] Calcium [Mass/Vol] 9.0 mg/dL 8.6 - 10. 6 mg/dL [facility] Chloride [Moles/Vol] 101 mmol/L 98 - 10 7 mmol/L [facility] CO2 [Moles/Vol] 24 mmol/L 21 - 32 mmol/L [facility] Creatinine [Mass/Vol] 0.63 mg/dL 0.50 - 1.05 mg/dL [facility] eGFR - PINF [facility] Comment on above: Calculations of estuardo mated GFR are performed using the 2020 CKD-EPI Study Refit equation without the race variable for the IDMS-Traceable creatinine methods. https://jasn.asnjournals.org/content//ASN.877656 3875 Glucose [Mass/Vol] 250 mg/dL High 74 - 99 mg/dL [facility] Interpretation and review of laboratory results Abnormal [facility] Potassium [Moles/Vol] 4.0 mmol/L 3.5 - 5.3 mmol/L [facility] Protein [Mass/Vol] 7.0 g/dL 6.4 - 8.2 g/dL [facility] Sodium [Moles/Vol] 137 mmol/L 136 - 145 mmol/L [facility] Urea nitrogen [Mass/Vol] 17 mg/dL 6 - 23 mg/dL [facility] Albumin BCP dye [Mass/Vol] 4.0 g/dL Normal 3.4-5.0 [facility] Comment on above: Performed By: #### 2 4323-8 ####ANDI Cotter ([id number])[facility] ([facility])[address] [place] [address] ALP [Catalytic activity/Vol] 93 U/L Normal 33-110 [facility] Comment on above: Performed By: #### 2 4323-8 ####ANDI Cotter ([id number])[facility] ([facility])[address] [place] [address] ALT With P-5'-P [Catalytic activity/Vol] 61 U/L High 7-45 [facility] Comment on above: Result Comment: Evelyn ents treated with Sulfasalazine may generate falsely decreased results for ALT. Performed By: #### 2 4323-8 ####ANDI Cotter ([id number])[facility] ([facility])[address] [place] [address] Anion gap [Moles/Vol] 16 mmol/L Normal 10-20 [facility] Comment on above: Performed By: #### 2 4323-8 ####ANDI Cotter ([id number])[facility] ([facility])[address] [facility] [place] [address] AST With P-5'-P [Catalytic activity/Vol] 24 U/L Normal 9-39 [facility] Comment on above: Performed By: #### 2 4323-8 ####ANDI Cotter ([id number])[facility] ([facility])[address] [facility] [address] Bilirubin [Mass/Vol] 0.3 mg/dL Normal 0.0-1.[address] [facility] Comment on above: Performed By: #### 2 4323-8 ####ANDI Cotter ([id number])[facility] ([facility])[address] [place] [address] Calcium [Mass/Vol] 9.0 mg/dL Normal 8.6-10.6 [facility] Comment on above: Performed By: #### 2 4323-8 ####ANDI Cotter ([id number])[facility] ([facility])[address] [place] [address] Chloride [Moles/Vol] 101 mmol/L Normal 98-[address] [facility] Comment on above: Performed By: #### 2 4323-8 ####ANDI Cotter ([id number])[facility] ([facility])[address] [place] [address] CO2 [Moles/Vol] 24 mmol/L Normal 21-32 [facility] Comment on above: Performed By: #### 2 4323-8 ####ANDI Cotter ([id number])[facility] ([facility])[address] [place] [address] Creatinine [Mass/Vol] 0.63 mg/dL Normal 0.50-1.05 [facility] Comment on above: Performed By: #### 2 4323-8 ####ANDI Cotter ([id number])[facility] ([facility])[address] [place] [address] GFR/1.73 sq M.predicted MDRD (S/P/Bld) [Vol rate/Area] mL/min/{1.73_m2} Normal >60 [facility] Comment on above: Result Comment: Calc ulations of estimated GFR are performed using the 2020 CKD-EPI Study Refit equation without the race variable for the IDMS-Traceable creatinine methods.https://jasn.asnjournals.org/content// N.3662155606 Performed By: #### 2 4323-8 ####ANDI Cotter ([id number])[facility] ([facility])[address] [place] [address] Glucose [Mass/Vol] 250 mg/dL High 74-99 [facility] Comment on above: Performed By: #### 2 4323-8 ####ANDI Cotter ([id number])[facility] ([facility])[address] [place] [address] Potassium [Moles/Vol] 4.0 mmol/L Normal 3.5-5.3 [facility] Comment on above: Performed By: #### 2 4323-8 ####ANDI Cotter ([id number])[facility] ([facility])[address] [place] [address] Protein [Mass/Vol] 7.0 g/dL Normal 6.4-8.2 [facility] Comment on above: Performed By: #### 2 4323-8 ####ANDI Cotter ([id number])[facility] ([facility])[address] [place] [address] Sodium [Moles/Vol] 137 mmol/L Normal 136-145 [facility] Comment on above: Performed By: #### 2 4323-8 ####ANDI Cotter ([id number])[facility] ([facility])[address] [place] [address] Urea nitrogen [Mass/Vol] 17 mg/dL Normal 6-23 [facility] Comment on above: Performed By: #### 2 4323-8 ####ANDI Cotter ([id number])[facility] ([facility])[address] [place] [address] Glucose Test strip manual (B ld) [Mass/Vol]on 12-05-2023 Glucose [Mass/Vol] 204 mg/dL High 74 - 99 mg/dL [facility] Interpretation and review of laboratory results Abnormal [facility] Glucose [Mass/Vol] 204 mg/dL High 74-99 [facility] Comment on above: Performed By: #### 2 341-6 ####ANDI Cotter ([id number])[facility] ([facility])[address] [place] [address] Glucose [Mass/Vol] 216 mg/dL High 74 - 99 mg/dL [facility] Interpretation and review of laboratory results Abnormal [facility] Glucose [Mass/Vol] 216 mg/dL High 74-99 [facility] Comment on above: Performed By: #### 2 341-6 ####ANDI Cotter ([id number])[facility] ([facility])[address] [place] [address] PT and aPTT panel Coag (PPP) on 12-05-2023 aPTT Coag (PPP) [Time] 29 s [facility] INR Coag (PPP) [Relative time] 1.1 {INR} 0.9 - 1.1 [facility] Interpretation and review of laboratory results Normal [facility] PT Coag (PPP) [Time] 12.1 s [facility] The APTT is no longe r used for monitoring Unfractionated Heparin Therapy. For monitoring Heparin Therapy, use the Heparin Assay. [facility] aPTT Coag (PPP) [Time] 29 s Normal 27-38 [facility] Comment on above: Order Comment: The A PTT is no longer used for monitoring Unfractionated Heparin Therapy. For monitoring Heparin Therapy, use the Heparin Assay. Performed By: #### 3 4529-8 ####ANDI Cotter ([id number])[facility] ([facility])[address] [place] [address], [place] [address] INR Coag (PPP) [Relative time] 1.1 Normal 0.9-1.1 [facility] Comment on above: Order Comment: The A PTT is no longer used for monitoring Unfractionated Heparin Therapy. For monitoring Heparin Therapy, use the Heparin Assay. Performed By: #### 3 4529-8 ####ANDI Cotter ([id number])[facility] ([facility])[address] [place] [address] PT Coag (PPP) [Time] 12.1 s Normal 9.8-12.[address] [facility] Comment on above: Order Comment: The A PTT is no longer used for monitoring Unfractionated Heparin Therapy. For monitoring Heparin Therapy, use the Heparin Assay. Performed By: #### 3 4529-8 ####ANDI Cotter ([id number])[facility] ([facility])[address] [place] [address] CBC panel Auto (Bld)on 11-15 Erythrocyte distribution width (RBC) [Ratio] 14.8 % High 11.5 - 14.5 % [facility] Hematocrit (Bld) [Volume fraction] 35.2 % Low 36.0 - 46.0 % [facility] Hemoglobin (Bld) [Mass/Vol] 10.9 g/dL Low 12.0 - 16.0 g/dL [facility] Interpretation and review of laboratory results Abnormal [facility] MCH (RBC) [Entitic mass] 29.3 pg 26.0 - 34.0 pg [facility] MCHC (RBC) [Mass/Vol] 31.0 g/dL Low 32.0 - 36.0 g/dL [facility] MCV (RBC) [Entitic vol] 95 fL 80 - 100 fL [facility] Nucleated RBC/100 WBC (Bld) [Ratio] 0.0 % [facility] Platelets (Bld) [#/Vol] 213 10*3/uL [facility] RBC (Bld) [#/Vol] 3.72 10*6/uL Low [facility] WBC (Bld) [#/Vol] 12.4 10*3/uL [facility] Erythrocyte distribution width (RBC) [Ratio] 14.8 % High 11.5-14.5 [facility] Comment on above: Performed By: #### 5 8410-2 ####ANDI Cotter ([id number])[facility] ([facility])[address] [place] [address] Hematocrit (Bld) [Volume fraction] 35.2 % Low 36.0-46.0 [facility] Comment on above: Performed By: #### 5 8410-2 ####ANDI Cotter ([id number])[facility] ([facility])[address] [place] [address] Hemoglobin (Bld) [Mass/Vol] 10.9 g/dL Low 12.0-16.0 [facility] Comment on above: Performed By: #### 5 8410-2 ####ANDI Cotter ([id number])[facility] ([facility])[address] [place] [address] MCH (RBC) [Entitic mass] 29.3 pg Normal 26.0-34.0 [facility] Comment on above: Performed By: #### 5 8410-2 ####ANDI Cotter ([id number])[facility] ([facility])[address] [place] [address] MCHC (RBC) [Mass/Vol] 31.0 g/dL Low 32.0-36.0 [facility] Comment on above: Performed By: #### 5 8410-2 ####ANDI Cotter ([id number])[facility] ([facility])[address] [place] [address] MCV (RBC) [Entitic vol] 95 fL Normal 80-100 [facility] Comment on above: Performed By: #### 5 8410-2 ####ANDI Cotter ([id number])[facility] ([facility])[address] [place] [address] Nucleated RBC/100 WBC (Bld) [Ratio] 0.0 /100 WBCs Normal 0.0-0.0 [facility] Comment on above: Performed By: #### 5 8410-2 ####ANDI Cotter ([id number])[facility] ([facility])[address] [place] [address] Platelets (Bld) [#/Vol] 213 x10*3/uL Normal 150-450 [facility] Comment on above: Performed By: #### 5 8410-2 ####ANDI Cotter ([id number])[facility] ([facility])[address] [place] [address] RBC (Bld) [#/Vol] 3.72 x10*6/uL Low 4.00-5.[address] [facility] Comment on above: Performed By: #### 5 8410-2 ####ANDI Cotter ([id number])[facility] ([facility])[address] [place] [address] WBC (Bld) [#/Vol] 12.4 x10*3/uL High 4.4-11.[address] [facility] Comment on above: Performed By: #### 5 8410-2 ####ANDI Cotter ([id number])[facility] ([facility])[address] [place] [address] Comprehensive metabolic 2000 panelon 11-15-2023 Albumin BCP dye [Mass/Vol] 3.7 g/dL 3.4 - 5.0 g/dL [facility] ALP [Catalytic activity/Vol] 96 U/L 33 - 110 U/L [facility] ALT With P-5'-P [Catalytic activity/Vol] 71 U/L High 7 - 45 U/L [facility] Comment on above: Patients treated wit h Sulfasalazine may generate falsely decreased results for ALT. Anion gap [Moles/Vol] 17 mmol/L 10 - 2 0 mmol/L [facility] AST With P-5'-P [Catalytic activity/Vol] 33 U/L 9 - 39 U/L [facility] Bilirubin [Mass/Vol] 0.6 mg/dL 0.0 - 1 .2 mg/dL [facility] Calcium [Mass/Vol] 8.9 mg/dL 8.6 - 10. 6 mg/dL [facility] Chloride [Moles/Vol] 99 mmol/L 98 - 10 7 mmol/L [facility] CO2 [Moles/Vol] 23 mmol/L 21 - 32 mmol/L [facility] Creatinine [Mass/Vol] 0.78 mg/dL 0.50 - 1.05 mg/dL [facility] eGFR - PINF [facility] Comment on above: Calculations of estuardo mated GFR are performed using the 2020 CKD-EPI Study Refit equation without the race variable for the IDMS-Traceable creatinine methods. https://jasn.asnjournals.org/content/early/ASN.728137 6058 Glucose [Mass/Vol] 203 mg/dL High 74 - 99 mg/dL [facility] Interpretation and review of laboratory results Abnormal [facility] Potassium [Moles/Vol] 3.8 mmol/L 3.5 - 5.3 mmol/L [facility] Protein [Mass/Vol] 6.2 g/dL Low 6.4 - 8.2 g/dL [facility] Sodium [Moles/Vol] 135 mmol/L Low 136 - 145 mmol/L [facility] Urea nitrogen [Mass/Vol] 6 mg/dL 6 - 23 mg/dL [facility] Albumin BCP dye [Mass/Vol] 3.7 g/dL Normal 3.4-5.0 [facility] Comment on above: Performed By: #### 2 4323-8 ####ANDI Cotter ([id number])[facility] ([facility])[address] [place] [address] ALP [Catalytic activity/Vol] 96 U/L Normal 33-110 [facility] Comment on above: Performed By: #### 2 4323-8 ####ANDI Cotter ([id number])[facility] ([facility])[address] [place] [address] ALT With P-5'-P [Catalytic activity/Vol] 71 U/L High 7-45 [facility] Comment on above: Result Comment: Evelyn ents treated with Sulfasalazine may generate falsely decreased results for ALT. Performed By: #### 2 4323-8 ####ANDI Cotter ([id number])[facility] ([facility])[address] [place] [address] Anion gap [Moles/Vol] 17 mmol/L Normal 10-20 [facility] Comment on above: Performed By: #### 2 4323-8 ####ANDI Cotter ([id number])[facility] ([facility])[address] [place] [address] AST With P-5'-P [Catalytic activity/Vol] 33 U/L Normal 9-39 [facility] Comment on above: Performed By: #### 2 4323-8 ####ANDI Cotter ([id number])[facility] ([facility])[address] [place] [address] Bilirubin [Mass/Vol] 0.6 mg/dL Normal 0.0-1.[address] [facility] Comment on above: Performed By: #### 2 4323-8 ####ANDI Cotter ([id number])[facility] ([facility])[address] [place] [address] Calcium [Mass/Vol] 8.9 mg/dL Normal 8.6-10.6 [facility] Comment on above: Performed By: #### 2 4323-8 ####ANDI Cotter ([id number])[facility] ([facility])[address] [place] [address] Chloride [Moles/Vol] 99 mmol/L Normal 98-[address] [facility] Comment on above: Performed By: #### 2 4323-8 ####ANDI Cotter ([id number])[facility] ([facility])[address] [place] [address] CO2 [Moles/Vol] 23 mmol/L Normal 21-32 [facility] Comment on above: Performed By: #### 2 4323-8 ####ANDI Cotter ([id number])[facility] ([facility])[address] [place] [address] Creatinine [Mass/Vol] 0.78 mg/dL Normal 0.50-1.05 [facility] Comment on above: Performed By: #### 2 4323-8 ####ANDI CHAUDHARY L ([id number])[facility] ([facility])[address] [place] [address] GFR/1.73 sq M.predicted MDRD (S/P/Bld) [Vol rate/Area] mL/min/{1.73_m2} Normal >60 [facility] Comment on above: Result Comment: Calc ulations of estimated GFR are performed using the 2020 CKD-EPI Study Refit equation without the race variable for the IDMS-Traceable creatinine methods.https://jasn.asnjournals.org/content// N.7558224161 Performed By: #### 2 4323-8 ####ANDI CHAUDHARY L ([id number])[facility] ([facility])[address] [place] [address] Glucose [Mass/Vol] 203 mg/dL High 74-99 [facility] Comment on above: Performed By: #### 2 4323-8 ####ANDI CHAUDHARY L ([id number])[facility] ([facility])[address] [place] [address] Potassium [Moles/Vol] 3.8 mmol/L Normal 3.5-5.3 [facility] Comment on above: Performed By: #### 2 4323-8 ####ANDI CHAUDHARY L ([id number])[facility] ([facility])[address] [place] [address] Protein [Mass/Vol] 6.2 g/dL Low 6.4-8.2 [facility] Comment on above: Performed By: #### 2 4323-8 ####ANDI CHAUDHARY L ([id number])[facility] ([facility])[address] [place] [address] Sodium [Moles/Vol] 135 mmol/L Low 136-145 [facility] Comment on above: Performed By: #### 2 4323-8 ####ANDI Cotter ([id number])[facility] ([facility])[address] [place] [address] Urea nitrogen [Mass/Vol] 6 mg/dL Normal 6-23 [facility] Comment on above: Performed By: #### 2 4323-8 ####ANDI Cotter ([id number])[facility] ([facility])[address] [place] [address] Glucose Test strip manual (B ld) [Mass/Vol]on 11-15-2023 Glucose [Mass/Vol] 352 mg/dL High 74 - 99 mg/dL [facility] Interpretation and review of laboratory results Abnormal [facility] Glucose [Mass/Vol] 352 mg/dL High 74-99 [facility] Comment on above: Performed By: #### 2 341-6 ####ANDI Cotter ([id number])[facility] ([facility])[address] [place] [address] Glucose [Mass/Vol] 184 mg/dL High 74 - 99 mg/dL [facility] Interpretation and review of laboratory results Abnormal [facility] Glucose [Mass/Vol] 184 mg/dL High 74-99 [facility] Comment on above: Performed By: #### 2 341-6 ####ANDI Cotter ([id number])[facility] ([facility])[address] [place] [address] Glucose [Mass/Vol] 201 mg/dL High 74 - 99 mg/dL [facility] Interpretation and review of laboratory results Abnormal [facility] Glucose [Mass/Vol] 201 mg/dL High 74-99 [facility] Comment on above: Performed By: #### 2 341-6 ####ANDI Cotter ([id number])[facility] ([facility])[address] [place] [address] Glucose [Mass/Vol] 243 mg/dL High 74 - 99 mg/dL [facility] Interpretation and review of laboratory results Abnormal [facility] Glucose [Mass/Vol] 243 mg/dL High 74-99 [facility] Comment on above: Performed By: #### 2 341-6 ####ANDI Cotter ([id number])[facility] ([facility])[address] [place] [address] CBC panel Auto (Bld)on 11-14 Erythrocyte distribution width (RBC) [Ratio] 14.6 % High 11.5 - 14.5 % [facility] Hematocrit (Bld) [Volume fraction] 35.2 % Low 36.0 - 46.0 % [facility] Hemoglobin (Bld) [Mass/Vol] 11.4 g/dL Low 12.0 - 16.0 g/dL [facility] Interpretation and review of laboratory results Abnormal [facility] MCH (RBC) [Entitic mass] 30.2 pg 26.0 - 34.0 pg [facility] MCHC (RBC) [Mass/Vol] 32.4 g/dL 32.0 - 36.0 g/dL [facility] MCV (RBC) [Entitic vol] 93 fL 80 - 100 fL [facility] Nucleated RBC/100 WBC (Bld) [Ratio] 0.0 % [facility] Platelets (Bld) [#/Vol] 247 10*3/uL [facility] RBC (Bld) [#/Vol] 3.78 10*6/uL Low [facility] WBC (Bld) [#/Vol] 9.0 10*3/uL [facility] Erythrocyte distribution width (RBC) [Ratio] 14.6 % High 11.5-14.5 [facility] Comment on above: Performed By: #### 5 8410-2 ####ANDI Cotter ([id number])[facility] ([facility])[address] [place] [address] Hematocrit (Bld) [Volume fraction] 35.2 % Low 36.0-46.0 [facility] Comment on above: Performed By: #### 5 8410-2 ####ANDI Cotter ([id number])[facility] ([facility])[address] [place] [address] Hemoglobin (Bld) [Mass/Vol] 11.4 g/dL Low 12.0-16.0 [facility] Comment on above: Performed By: #### 5 8410-2 ####ANDI Cotter ([id number])[facility] ([facility])[address] [place] [address] MCH (RBC) [Entitic mass] 30.2 pg Normal 26.0-34.0 [facility] Comment on above: Performed By: #### 5 8410-2 ####ANDI Cotter ([id number])[facility] ([facility])[address] [place] [address] MCHC (RBC) [Mass/Vol] 32.4 g/dL Normal 32.0-36.0 [facility] Comment on above: Performed By: #### 5 8410-2 ####ANDI Cotter ([id number])[facility] ([facility])[address] [place] [address] MCV (RBC) [Entitic vol] 93 fL Normal 80-100 [facility] Comment on above: Performed By: #### 5 8410-2 ####ANDI Cotter ([id number])[facility] ([facility])[address] [place] [address] Nucleated RBC/100 WBC (Bld) [Ratio] 0.0 /100 WBCs Normal 0.0-0.0 [facility] Comment on above: Performed By: #### 5 8410-2 ####ANDI Cotter ([id number])[facility] ([facility])[address] [place] [address] Platelets (Bld) [#/Vol] 247 x10*3/uL Normal 150-450 [facility] Comment on above: Performed By: #### 5 8410-2 ####ANDI Cotter ([id number])[facility] ([facility])[address] [place] [address] RBC (Bld) [#/Vol] 3.78 x10*6/uL Low 4.00-5.[address] [facility] Comment on above: Performed By: #### 5 8410-2 ####ANDI Cotter ([id number])[facility] ([facility])[address] [place] [address] WBC (Bld) [#/Vol] 9.0 x10*3/uL Normal 4.4-11.3 [facility] Comment on above: Performed By: #### 5 8410-2 ####ANDI Cotter ([id number])[facility] ([facility])[address] [place] [address] Erythrocyte distribution width (RBC) [Ratio] 14.3 % 11.5 - 14.5 % [facility] Hematocrit (Bld) [Volume fraction] 34.7 % Low 36.0 - 46.0 % [facility] Hemoglobin (Bld) [Mass/Vol] 10.9 g/dL Low 12.0 - 16.0 g/dL [facility] Interpretation and review of laboratory results Abnormal [facility] MCH (RBC) [Entitic mass] 29.4 pg 26.0 - 34.0 pg [facility] MCHC (RBC) [Mass/Vol] 31.4 g/dL Low 32.0 - 36.0 g/dL [facility] MCV (RBC) [Entitic vol] 94 fL 80 - 100 fL [facility] Nucleated RBC/100 WBC (Bld) [Ratio] 0.0 % [facility] Platelets (Bld) [#/Vol] 266 10*3/uL [facility] RBC (Bld) [#/Vol] 3.71 10*6/uL Low [facility] WBC (Bld) [#/Vol] 5.8 10*3/uL [facility] Erythrocyte distribution width (RBC) [Ratio] 14.3 % Normal 11.5-14.5 [facility] Comment on above: Performed By: #### 5 8410-2 ####ANDI Cotter ([id number])[facility] ([facility])[address] [place] [address] Hematocrit (Bld) [Volume fraction] 34.7 % Low 36.0-46.0 [facility] Comment on above: Performed By: #### 5 8410-2 ####ANDI Cotter ([id number])[facility] ([facility])[address] [place] [address] Hemoglobin (Bld) [Mass/Vol] 10.9 g/dL Low 12.0-16.0 [facility] Comment on above: Performed By: #### 5 8410-2 ####ANDI Cotter ([id number])[facility] ([facility])[address] [place] [address] MCH (RBC) [Entitic mass] 29.4 pg Normal 26.0-34.0 [facility] Comment on above: Performed By: #### 5 8410-2 ####ANDI Cotter ([id number])[facility] ([facility])[address] [place] [address] MCHC (RBC) [Mass/Vol] 31.4 g/dL Low 32.0-36.0 [facility] Comment on above: Performed By: #### 5 8410-2 ####ANDI Cotter ([id number])[facility] ([facility])[address] [place] [address] MCV (RBC) [Entitic vol] 94 fL Normal 80-100 [facility] Comment on above: Performed By: #### 5 8410-2 ####ANDI Cotter ([id number])[facility] ([facility])[address] [place] [address] Nucleated RBC/100 WBC (Bld) [Ratio] 0.0 /100 WBCs Normal 0.0-0.0 [facility] Comment on above: Performed By: #### 5 8410-2 ####ANDI Cotter ([id number])[facility] ([facility])[address] [place] [address] Platelets (Bld) [#/Vol] 266 x10*3/uL Normal 150-450 [facility] Comment on above: Performed By: #### 5 8410-2 ####ANDI Cotter ([id number])[facility] ([facility])[address] [place] [address] RBC (Bld) [#/Vol] 3.71 x10*6/uL Low 4.00-5.[address] [facility] Comment on above: Performed By: #### 5 8410-2 ####ANDI Cotter ([id number])[facility] ([facility])[address] [place] [address] WBC (Bld) [#/Vol] 5.8 x10*3/uL Normal 4.4-11.3 [facility] Comment on above: Performed By: #### 5 8410-2 ####ANDI Cotter ([id number])[facility] ([facility])[address] [place] [address] Comprehensive metabolic 2000 panelon 11-14-2023 Albumin BCP dye [Mass/Vol] 4.0 g/dL 3.4 - 5.0 g/dL [facility] ALP [Catalytic activity/Vol] 106 U/L 33 - 110 U/L [facility] ALT With P-5'-P [Catalytic activity/Vol] 87 U/L High 7 - 45 U/L [facility] Comment on above: Patients treated wit h Sulfasalazine may generate falsely decreased results for ALT. Anion gap [Moles/Vol] 14 mmol/L 10 - 2 0 mmol/L [facility] AST With P-5'-P [Catalytic activity/Vol] 49 U/L High 9 - 39 U/L [facility] Bilirubin [Mass/Vol] 0.5 mg/dL 0.0 - 1 .2 mg/dL [facility] Calcium [Mass/Vol] 9.2 mg/dL 8.6 - 10. 6 mg/dL [facility] Chloride [Moles/Vol] 99 mmol/L 98 - 10 7 mmol/L [facility] CO2 [Moles/Vol] 30 mmol/L 21 - 32 mmol/L [facility] Creatinine [Mass/Vol] 0.86 mg/dL 0.50 - 1.05 mg/dL [facility] GFR/1.73 sq M.predicted among non-blacks MDRD (S/P/Bld) [Vol rate/Area] 83 mL/min/{1.73_m2} - PINF [facility] Comment on above: Calculations of estuardo mated GFR are performed using the 2020 CKD-EPI Study Refit equation without the race variable for the IDMS-Traceable creatinine methods. https://jasn.asnjournals.org/content//ASN.909418 9446 Glucose [Mass/Vol] 254 mg/dL High 74 - 99 mg/dL [facility] Interpretation and review of laboratory results Abnormal [facility] Potassium [Moles/Vol] 3.8 mmol/L 3.5 - 5.3 mmol/L [facility] Protein [Mass/Vol] 6.4 g/dL 6.4 - 8.2 g/dL [facility] Sodium [Moles/Vol] 139 mmol/L 136 - 145 mmol/L [facility] Urea nitrogen [Mass/Vol] 9 mg/dL 6 - 23 mg/dL [facility] Albumin BCP dye [Mass/Vol] 4.0 g/dL Normal 3.4-5.0 [facility] Comment on above: Performed By: #### 2 4323-8 ####ANDI Cotter ([id number])[facility] ([facility])[address] [place] [address] ALP [Catalytic activity/Vol] 106 U/L Normal 33-110 [facility] Comment on above: Performed By: #### 2 4323-8 ####ANDI Cotter ([id number])[facility] ([facility])[address] [place] [address] ALT With P-5'-P [Catalytic activity/Vol] 87 U/L High 7-45 [facility] Comment on above: Result Comment: Evelyn ents treated with Sulfasalazine may generate falsely decreased results for ALT. Performed By: #### 2 4323-8 ####ANDI Cotter ([id number])[facility] ([facility])[address] [place] [address] Anion gap [Moles/Vol] 14 mmol/L Normal 10-20 [facility] Comment on above: Performed By: #### 2 4323-8 ####ANDI Cotter ([id number])[facility] ([facility])[address] [place] [address] AST With P-5'-P [Catalytic activity/Vol] 49 U/L High 9-39 [facility] Comment on above: Performed By: #### 2 4323-8 ####ANDI Cotter ([id number])[facility] ([facility])[address] [place] [address] Bilirubin [Mass/Vol] 0.5 mg/dL Normal 0.0-1.[address] [facility] Comment on above: Performed By: #### 2 4323-8 ####ANDI CHAUDHARY L ([id number])[facility] ([facility])[address] [place] [address] Calcium [Mass/Vol] 9.2 mg/dL Normal 8.6-10.6 [facility] Comment on above: Performed By: #### 2 4323-8 ####ANDI CHAUDHARY L ([id number])[facility] ([facility])[address] [place] [address] Chloride [Moles/Vol] 99 mmol/L Normal 98-[address] [facility] Comment on above: Performed By: #### 2 4323-8 ####ANDI CHAUDHARY L ([id number])[facility] ([facility])[address] [place] [address] CO2 [Moles/Vol] 30 mmol/L Normal 21-32 [facility] Comment on above: Performed By: #### 2 4323-8 ####ANDI Cotter ([id number])[facility] ([facility])[address] [place] [address] Creatinine [Mass/Vol] 0.86 mg/dL Normal 0.50-1.05 [facility] Comment on above: Performed By: #### 2 4323-8 ####ANDI Cotter ([id number])[facility] ([facility])[address] [place] [address] Glomerular filtration rate/1.73 sq M.predicted 83 mL/min/1.73m*2 Normal >60 [facility] Comment on above: Result Comment: Calc ulations of estimated GFR are performed using the 2020 CKD-EPI Study Refit equation without the race variable for the IDMS-Traceable creatinine methods.https://jasn.asnjournals.org/content/early/ N.7931639864 Performed By: #### 2 4323-8 ####ANDI Cotter ([id number])[facility] ([facility])[address] [place] [address] Glucose [Mass/Vol] 254 mg/dL High 74-99 [facility] Comment on above: Performed By: #### 2 4323-8 ####ANDI Cotter ([id number])[facility] ([facility])[address] [place] [address] Potassium [Moles/Vol] 3.8 mmol/L Normal 3.5-5.3 [facility] Comment on above: Performed By: #### 2 4323-8 ####ANDI Cotter ([id number])[facility] ([facility])[address] [place] [address] Protein [Mass/Vol] 6.4 g/dL Normal 6.4-8.2 [facility] Comment on above: Performed By: #### 2 4323-8 ####ANDI Cotter ([id number])[facility] ([facility])[address] [place] [address] Sodium [Moles/Vol] 139 mmol/L Normal 136-145 [facility] Comment on above: Performed By: #### 2 4323-8 ####ANDI CHAUDHARY L ([id number])[facility] ([facility])[address] [place] [address] Urea nitrogen [Mass/Vol] 9 mg/dL Normal 6-23 [facility] Comment on above: Performed By: #### 2 4323-8 ####ANDI RENEEER L ([id number])[facility] ([facility])[address] [place] [address] Albumin BCP dye [Mass/Vol] 3.8 g/dL 3.4 - 5.0 g/dL [facility] ALP [Catalytic activity/Vol] 92 U/L 33 - 110 U/L [facility] ALT With P-5'-P [Catalytic activity/Vol] 87 U/L High 7 - 45 U/L [facility] Comment on above: Patients treated wit h Sulfasalazine may generate falsely decreased results for ALT. Anion gap [Moles/Vol] 15 mmol/L 10 - 2 0 mmol/L [facility] AST With P-5'-P [Catalytic activity/Vol] 31 U/L 9 - 39 U/L [facility] Bilirubin [Mass/Vol] 0.5 mg/dL 0.0 - 1 .2 mg/dL [facility] Calcium [Mass/Vol] 9.0 mg/dL 8.6 - 10. 6 mg/dL [facility] Chloride [Moles/Vol] 98 mmol/L 98 - 10 7 mmol/L [facility] CO2 [Moles/Vol] 27 mmol/L 21 - 32 mmol/L [facility] Creatinine [Mass/Vol] 0.79 mg/dL 0.50 - 1.05 mg/dL [facility] eGFR - PINF [facility] Comment on above: Calculations of estuardo mated GFR are performed using the 2020 CKD-EPI Study Refit equation without the race variable for the IDMS-Traceable creatinine methods. https://jasn.asnjournals.org/content//ASN.287614 1622 Glucose [Mass/Vol] 190 mg/dL High 74 - 99 mg/dL [facility] Interpretation and review of laboratory results Abnormal [facility] Potassium [Moles/Vol] 3.4 mmol/L Low 3.5 - 5.3 mmol/L [facility] Protein [Mass/Vol] 6.1 g/dL Low 6.4 - 8.2 g/dL [facility] Sodium [Moles/Vol] 137 mmol/L 136 - 145 mmol/L [facility] Urea nitrogen [Mass/Vol] 9 mg/dL 6 - 23 mg/dL [facility] Albumin BCP dye [Mass/Vol] 3.8 g/dL Normal 3.4-5.0 [facility] Comment on above: Performed By: #### 2 4323-8 ####ANDI Cotter ([id number])[facility] ([facility])[address] [place] [address] ALP [Catalytic activity/Vol] 92 U/L Normal 33-110 [facility] Comment on above: Performed By: #### 2 4323-8 ####NADI Cotter ([id number])[facility] ([facility])[address] [place] [address] ALT With P-5'-P [Catalytic activity/Vol] 87 U/L High 7-45 [facility] Comment on above: Result Comment: Evelyn ents treated with Sulfasalazine may generate falsely decreased results for ALT. Performed By: #### 2 4323-8 ####ANDI Cotter ([id number])[facility] ([facility])[address] [place] [address] Anion gap [Moles/Vol] 15 mmol/L Normal 10-20 [facility] Comment on above: Performed By: #### 2 4323-8 ####ANDI Cotter ([id number])[facility] ([facility])[address] [place] [address] AST With P-5'-P [Catalytic activity/Vol] 31 U/L Normal 9-39 [facility] Comment on above: Performed By: #### 2 4323-8 ####ANDI Cotter ([id number])[facility] ([facility])[address] [place] [address] Bilirubin [Mass/Vol] 0.5 mg/dL Normal 0.0-1.[address] [facility] Comment on above: Performed By: #### 2 4323-8 ####ANDI Cotter ([id number])[facility] ([facility])[address] [place] [address] Calcium [Mass/Vol] 9.0 mg/dL Normal 8.6-10.6 [facility] Comment on above: Performed By: #### 2 4323-8 ####ANDI Cotter ([id number])[facility] ([facility])[address] [place] [address] Chloride [Moles/Vol] 98 mmol/L Normal 98-[address] [facility] Comment on above: Performed By: #### 2 4323-8 ####ANDI Cotter ([id number])[facility] ([facility])[address] [place] [address] CO2 [Moles/Vol] 27 mmol/L Normal 21-32 [facility] Comment on above: Performed By: #### 2 4323-8 ####ANDI Cotter ([id number])[facility] ([facility])[address] [place] [address] Creatinine [Mass/Vol] 0.79 mg/dL Normal 0.50-1.05 [facility] Comment on above: Performed By: #### 2 4323-8 ####ANDI Cotter ([id number])[facility] ([facility])[address] [place] [address] GFR/1.73 sq M.predicted MDRD (S/P/Bld) [Vol rate/Area] mL/min/{1.73_m2} Normal >60 [facility] Comment on above: Result Comment: Calc ulations of estimated GFR are performed using the 2020 CKD-EPI Study Refit equation without the race variable for the IDMS-Traceable creatinine methods.https://jasn.asnjournals.org/content/early// N.1200236150 Performed By: #### 2 4323-8 ####ANDI Cotter ([id number])[facility] ([facility])[address] [place] [address] Glucose [Mass/Vol] 190 mg/dL High 74-99 [facility] Comment on above: Performed By: #### 2 4323-8 ####ANDI CHAUDHARY L ([id number])[facility] ([facility])[address] [place] [address] Potassium [Moles/Vol] 3.4 mmol/L Low 3.5-5.3 [facility] Comment on above: Performed By: #### 2 4323-8 ####ANDI CHAUDHARY L ([id number])[facility] ([facility])[address] [place] [address] Protein [Mass/Vol] 6.1 g/dL Low 6.4-8.2 [facility] Comment on above: Performed By: #### 2 4323-8 ####ANDI RAJPUTMOTZER L ([id number])[facility] ([facility])[address] [place] [address] Sodium [Moles/Vol] 137 mmol/L Normal 136-145 [facility] Comment on above: Performed By: #### 2 4323-8 ####ANDI RAJPUTMOTZER L ([id number])[facility] ([facility])[address] [place] [address] Urea nitrogen [Mass/Vol] 9 mg/dL Normal 6-23 [facility] Comment on above: Performed By: #### 2 4323-8 ####ANDI RAJPUTMOTZER L ([id number])[facility] ([facility])[address] [place] [address] ENDOSCOPIC ULTRASOUND (UPPER )on 11-14-2023 ENDOSCOPIC ULTRASOUND (UPPER) Table formatting from the original result was not included. Normal [facility] Endoscopic Ultrasound (Upper )on 11-14-2023 Table formatting [...] to identify any interposed vessels. Using the [employer]et[employer] stent delivery system, the cavity was punctured [...] successfully placed. 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 Recent [...] which was admini (more content not included)... [facility] Work Phone: [facility] Work Phone: Radiology Study observation (narrative) [facility] Work Phone: Glucose Test strip manual (B ld) [Mass/Vol]on 11-14-2023 Glucose [Mass/Vol] 169 mg/dL High 74 - 99 mg/dL [facility] Interpretation and review of laboratory results Abnormal [facility] Glucose [Mass/Vol] 169 mg/dL High 74-99 [facility] Comment on above: Performed By: #### 2 341-6 ####ANDI Cotter ([id number])[facility] ([facility])[address] [place] [address] Glucose [Mass/Vol] 191 mg/dL High 74 - 99 mg/dL [facility] Interpretation and review of laboratory results Abnormal [facility] Glucose [Mass/Vol] 191 mg/dL High 74-99 [facility] Comment on above: Performed By: #### 2 341-6 ####ANDI Cotter ([id number])[facility] ([facility])[address] [place] [place] [address] Glucose [Mass/Vol] 243 mg/dL High 74 - 99 mg/dL [facility] Interpretation and review of laboratory results Abnormal [facility] Glucose [Mass/Vol] 243 mg/dL High 74-99 [facility] Comment on above: Performed By: #### 2 341-6 ####ANDI Cotter ([id number])[facility] ([facility])[id number] [place] [address] 39493 Bacteria identified Cx Nom ( U)Ordered By: Fatimah Ortega on 11-13-2023 Interpretation and review of laboratory results Abnormal [facility] Streptococcus agalactiae (Group B Streptococcus) is universally susceptible to beta-lactam antibiotics and vancomycin. Routine susceptibility testing not performed. For penicillin allergic patients, please contact the laboratory within 5 days of collection at to request susceptibility testing. [facility] CBC W Auto Differential pane l (Bld)on 11-13-2023 Basophils (Bld) [#/Vol] 0.05 10*3/uL [facility] Basophils/100 WBC (Bld) 0.8 % 0.0 - 2.0 % [facility] Eosinophils (Bld) [#/Vol] 0.33 10*3/uL [facility] Eosinophils/100 WBC (Bld) 5.6 % 0.0 - 6.0 % [facility] Erythrocyte distribution width (RBC) [Ratio] 14.1 % 11.5 - 14.5 % [facility] Hematocrit (Bld) [Volume fraction] 35.0 % Low 36.0 - 46.0 % [facility] Hemoglobin (Bld) [Mass/Vol] 10.9 g/dL Low 12.0 - 16.0 g/dL [facility] Immature granulocytes (Bld) [#/Vol] 0.03 10*3/uL [facility] Immature granulocytes/100 WBC (Bld) 0.5 % 0.0 - 0.9 % [facility] Comment on above: Immature Granulocyte Count (IG) includes promyelocytes, myelocytes and metamyelocytes but does not include bands. Percent differential counts (%) should be interpreted in the context of the absolute cell counts (cells/UL). Interpretation and review of laboratory results Abnormal [facility] Lymphocytes (Bld) [#/Vol] 1.70 10*3/uL [facility] Lymphocytes/100 WBC (Bld) 28.7 % 13.0 - 44.0 % [facility] MCH (RBC) [Entitic mass] 29.1 pg 26.0 - 34.0 pg [facility] MCHC (RBC) [Mass/Vol] 31.1 g/dL Low 32.0 - 36.0 g/dL [facility] MCV (RBC) [Entitic vol] 93 fL 80 - 100 fL [facility] Monocytes (Bld) [#/Vol] 0.49 10*3/uL [facility] Monocytes/100 WBC (Bld) 8.3 % 2.0 - 10.0 % [facility] Neutrophils (Bld) [#/Vol] 3.32 10*3/uL [facility] Comment on above: Percent differential counts (%) should be interpreted in the context of the absolute cell counts (cells/uL). Neutrophils/100 WBC (Bld) 56.1 % 40.0 - 80.0 % [facility] Nucleated RBC/100 WBC (Bld) [Ratio] 0.0 % [facility] Platelets (Bld) [#/Vol] 281 10*3/uL [facility] RBC (Bld) [#/Vol] 3.75 10*6/uL Low [facility] WBC (Bld) [#/Vol] 5.9 10*3/uL [facility] Basophils (Bld) [#/Vol] 0.05 x10*3/uL Normal 0.00-0.10 [facility] Comment on above: Performed By: #### 5 7021-8 ####ANDI Cotter ([id number])[facility] ([facility])[address] [place] [address] Basophils/100 WBC (Bld) 0.8 % Normal 0.0-2.0 [facility] Comment on above: Performed By: #### 5 7021-8 ####ANDI Cotter ([id number])[facility] ([facility])[address] [place] [address] Eosinophils (Bld) [#/Vol] 0.33 x10*3/uL Normal 0.00-0.70 [facility] Comment on above: Performed By: #### 5 7021-8 ####ANDI Cotter ([id number])[facility] ([facility])[address] [place] [address] Eosinophils/100 WBC (Bld) 5.6 % Normal 0.0-6.0 [facility] Comment on above: Performed By: #### 5 7021-8 ####ANDI Cotter ([id number])[facility] ([facility])[address] [place] [address] Erythrocyte distribution width (RBC) [Ratio] 14.1 % Normal 11.5-14.5 [facility] Comment on above: Performed By: #### 5 7021-8 ####ANDI CHAUDHARY L ([id number])[facility] ([facility])[address] [place] [address]14 Hematocrit (Bld) [Volume fraction] 35.0 % Low 36.0-46.0 [facility] Comment on above: Performed By: #### 5 7021-8 ####ANDI CHAUDHARY L ([id number])[facility] ([facility])[address] [place] [address] 98183 Hemoglobin (Bld) [Mass/Vol] 10.9 g/dL Low 12.0-16.0 [facility] Comment on above: Performed By: #### 5 7021-8 ####ANDI CHAUDHARY L ([id number])[facility] ([facility])[address] [place] [address] 89545 Immature granulocytes (Bld) [#/Vol] 0.03 x10*3/uL Normal 0.00-0.70 [facility] Comment on above: Performed By: #### 5 7021-8 ####ANDI CHAUDHARY L ([id number])[facility] ([facility])[address] [place] [address]015 Immature granulocytes/100 WBC (Bld) 0.5 % Normal 0.0-0.9 [facility] Comment on above: Result Comment: Debbie ture Granulocyte Count (IG) includes promyelocytes, myelocytes and metamyelocytes but does not include bands. Percent differential counts (%) should be interpreted in the context of the absolute cell counts (cells/UL). Performed By: #### 5 7021-8 ####ANDI RAJPUTMOTZJYOTI L ([id number])[facility] ([facility])[address] [place] [address]696 Lymphocytes (Bld) [#/Vol] 1.70 x10*3/uL Normal 1.20-4.80 [facility] Comment on above: Performed By: #### 5 7021-8 ####ANDI Cotter ([id number])[facility] ([facility])[address] [place] [address] Lymphocytes/100 WBC (Bld) 28.7 % Normal 13.0-44.0 [facility] Comment on above: Performed By: #### 5 7021-8 ####ANDI Cotter ([id number])[facility] ([facility])[address] [place] [address]10[address] MCH (RBC) [Entitic mass] 29.1 pg Normal 26.0-34.0 [facility] Comment on above: Performed By: #### 5 7021-8 ####ANDI Cotter ([id number])[facility] ([facility])[address] [place] [address] MCHC (RBC) [Mass/Vol] 31.1 g/dL Low 32.0-36.0 [facility] Comment on above: Performed By: #### 5 7021-8 ####ANDI Cotter ([id number])[facility] ([facility])[address] [place] [address] MCV (RBC) [Entitic vol] 93 fL Normal 80-100 [facility] Comment on above: Performed By: #### 5 7021-8 ####ANDI Cotter ([id number])[facility] ([facility])[address] [place] [address]11 Monocytes (Bld) [#/Vol] 0.49 x10*3/uL Normal 0.10-1.00 [facility] Comment on above: Performed By: #### 5 7021-8 ####ANDI Cotter ([id number])[facility] ([facility])[address] [place] [address] Monocytes/100 WBC (Bld) 8.3 % Normal 2.0-10.0 [facility] Comment on above: Performed By: #### 5 7021-8 ####ANDI Cotter ([id number])[facility] ([facility])[address] [place] [address] Neutrophils (Bld) [#/Vol] 3.32 x10*3/uL Normal 1.20-7.70 [facility] Comment on above: Result Comment: Perc ent differential counts (%) should be interpreted in the context of the absolute cell counts (cells/uL). Performed By: #### 5 7021-8 ####ANDI MADRIDTZJYOTI L ([id number])[facility] ([facility])[address] [place] [address] Neutrophils/100 WBC (Bld) 56.1 % Normal 40.0-80.0 [facility] Comment on above: Performed By: #### 5 7021-8 ####ANDI CHAUDHARY L ([id number])[facility] ([facility])[address] [place] [address] Nucleated RBC/100 WBC (Bld) [Ratio] 0.0 /100 WBCs Normal 0.0-0.0 [facility] Comment on above: Performed By: #### 5 7021-8 ####ANDI CHAUDHARY L ([id number])[facility] ([facility])[address] [place] [address] Platelets (Bld) [#/Vol] 281 x10*3/uL Normal 150-450 [facility] Comment on above: Performed By: #### 5 7021-8 ####ANDI RAJPUTMOFIDELINA L ([id number])[facility] ([facility])[address] [place] [address] RBC (Bld) [#/Vol] 3.75 x10*6/uL Low 4.00-5.[address] [facility] Comment on above: Performed By: #### 5 7021-8 ####ANDI RAJPUTMOTZJYOTI L ([id number])[facility] ([facility])[address] [place] [address] WBC (Bld) [#/Vol] 5.9 x10*3/uL Normal 4.4-11.3 [facility] Comment on above: Performed By: #### 5 7021-8 ####ANDI Cotter ([id number])[facility] ([facility])[address] [place] [address] Extra Urine Vaca Tubeon 10-21 Extra Tube Hold for add-ons. [facility] Comment on above: Auto resulted. [facility] Glucose Test strip manual (B ld) [Mass/Vol]on 11-13-2023 Glucose [Mass/Vol] 241 mg/dL High 74 - 99 mg/dL [facility] Interpretation and review of laboratory results Abnormal [facility] Glucose [Mass/Vol] 241 mg/dL High 74-99 [facility] Comment on above: Performed By: #### 2 341-6 ####ANDI Cotter ([id number])[facility] ([facility])[address] [place] [address]80 Glucose [Mass/Vol] 208 mg/dL High 74 - 99 mg/dL [facility] Interpretation and review of laboratory results Abnormal [facility] Glucose [Mass/Vol] 208 mg/dL High 74-99 [facility] Comment on above: Performed By: #### 2 341-6 ####ANDI Cotter ([id number])[facility] ([facility])[address] [place] [address] Glucose [Mass/Vol] 206 mg/dL High 74 - 99 mg/dL [facility] Interpretation and review of laboratory results Abnormal [facility] Glucose [Mass/Vol] 206 mg/dL High 74-99 [facility] Comment on above: Performed By: #### 2 341-6 ####ANDI Cotter ([id number])[facility] ([facility])[address] [place] [address] Glucose [Mass/Vol] 255 mg/dL High 74 - 99 mg/dL [facility] Interpretation and review of laboratory results Abnormal [facility] Glucose [Mass/Vol] 255 mg/dL High 74-99 [facility] Comment on above: Performed By: #### 2 341-6 ####ANDI Cotter ([id number])[facility] ([facility])[address] [place] [address] Glucose [Mass/Vol] 247 mg/dL High 74 - 99 mg/dL [facility] Interpretation and review of laboratory results Abnormal [facility] Glucose [Mass/Vol] 247 mg/dL High 74-99 [facility] Comment on above: Performed By: #### 2 341-6 ####ANDI Cotter ([id number])[facility] ([facility])[address] [place] [address] Glucose [Mass/Vol] 210 mg/dL High 74 - 99 mg/dL [facility] Interpretation and review of laboratory results Abnormal [facility] Glucose [Mass/Vol] 210 mg/dL High 74-99 [facility] Comment on above: Performed By: #### 2 341-6 ####ANDI Cotter ([id number])[facility] ([facility])[address] [place] [address]5918 Heparin Assay, UFHon 024 Heparin unfractionated Chromogenic method Qn (PPP) 0.4 See Comment Below for Therapeutic Ranges IU/mL [facility] Heparin unfractionated Chrom ogenic method Qn (PPP)on 11-13-2023 Interpretation and review of laboratory results Normal [facility] The therapeutic reference range for UFH may be either 0.3-0.6 IU/mL or 0.3-0.7 IU/mL based on the clinical setting for anticoagulant therapy and the associated nomogram used. For Heparin dosing guidelines based on clinical scenario and Heparin Assay results, please refer to local Pharmacy and the [facility] Guidelines for Anticoagulation Therapy available on the [facility] intranet at: [email or web address] [facility] Heparin.unfractionatedon Heparin unfractionated Chromogenic method Qn (PPP) 0.4 IU/mL Normal See Comment Below for Therapeutic Ranges [facility] Comment on above: [...] please refer to local Pharmacy and the [facility] Guidelines for Anticoagulation Therapy available on the [facility] intranet at: [email or web address] Performed By: #### 3 274-8 ####ANDI Cotter ([id number])[facility] ([facility])[address] [place] [address] Magnesiumon 11-13-2023 Magnesium [Mass/Vol] 1.93 mg/dL 1.60 - 2.40 mg/dL [facility] Magnesium [Mass/Vol] 1.93 mg/dL Normal 1.60-2.[address] [facility] Comment on above: Performed By: #### 1 9123-9 ####ANDI Cotter ([id number])[facility] ([facility])[address] [place] [address] Magnesium [Mass/Vol]on 11-13 Interpretation and review of laboratory results Normal [facility] Renal function 2000 panelon 11-13-2023 Albumin BCP dye [Mass/Vol] 3.9 g/dL 3.4 - 5.0 g/dL [facility] Anion gap [Moles/Vol] 16 mmol/L 10 - 2 0 mmol/L [facility] Calcium [Mass/Vol] 9.6 mg/dL 8.6 - 10. 6 mg/dL [facility] Chloride [Moles/Vol] 95 mmol/L Low 98 - 10 7 mmol/L [facility] CO2 [Moles/Vol] 28 mmol/L 21 - 32 mmol/L [facility] Creatinine [Mass/Vol] 0.75 mg/dL 0.50 - 1.05 mg/dL [facility] eGFR - PINF [facility] Comment on above: Calculations of estuardo mated GFR are performed using the 2020 CKD-EPI Study Refit equation without the race variable for the IDMS-Traceable creatinine methods. https://jasn.asnjournals.org/content/early/ASN.334437 2725 Glucose [Mass/Vol] 202 mg/dL High 74 - 99 mg/dL [facility] Interpretation and review of laboratory results Abnormal [facility] Phosphate [Mass/Vol] 4.3 mg/dL 2.5 - 4 .9 mg/dL [facility] Comment on above: The performance timi acteristics of phosphorus testing in heparinized plasma have been validated by the individual laboratory site where testing is performed. Testing on heparinized plasma is not approved by the FDA; however, such approval is not necessary. Potassium [Moles/Vol] 3.4 mmol/L Low 3.5 - 5.3 mmol/L [facility] Sodium [Moles/Vol] 136 mmol/L 136 - 145 mmol/L [facility] Urea nitrogen [Mass/Vol] 12 mg/dL 6 - 23 mg/dL [facility] Albumin BCP dye [Mass/Vol] 3.9 g/dL Normal 3.4-5.0 [facility] Comment on above: Performed By: #### 2 4362-6 ####ANDI Cotter ([id number])[facility] ([facility])[address] [place] [address] Anion gap [Moles/Vol] 16 mmol/L Normal 10-20 [facility] Comment on above: Performed By: #### 2 4362-6 ####ANDI Cotter ([id number])[facility] ([facility])[address] [place] [address] Calcium [Mass/Vol] 9.6 mg/dL Normal 8.6-10.6 [facility] Comment on above: Performed By: #### 2 4362-6 ####ANDI Cotter ([id number])[facility] ([facility])[address] [place] [address] Chloride [Moles/Vol] 95 mmol/L Low 98-[address] [facility] Comment on above: Performed By: #### 2 4362-6 ####ANDI CHAUDHARY L ([id number])[facility] ([facility])[address] [place] [address] CO2 [Moles/Vol] 28 mmol/L Normal 21-32 [facility] Comment on above: Performed By: #### 2 4362-6 ####ANDI Cotter ([id number])[facility] ([facility])[address] [place] [address] Creatinine [Mass/Vol] 0.75 mg/dL Normal 0.50-1.05 [facility] Comment on above: Performed By: #### 2 4362-6 ####ANDI Cotter ([id number])[facility] ([facility])[address] [place] [address] GFR/1.73 sq M.predicted MDRD (S/P/Bld) [Vol rate/Area] mL/min/{1.73_m2} Normal >60 [facility] Comment on above: Result Comment: Calc ulations of estimated GFR are performed using the 2020 CKD-EPI Study Refit equation without the race variable for the IDMS-Traceable creatinine methods.https://jasn.asnjournals.org/content/early/ N.6830067496 Performed By: #### 2 4362-6 ####ANDI Cotter ([id number])[facility] ([facility])[address] [place] [address] Glucose [Mass/Vol] 202 mg/dL High 74-99 [facility] Comment on above: Performed By: #### 2 4362-6 ####ANDI Cotter ([id number])[facility] ([facility])[address] [place] [address] Phosphate [Mass/Vol] 4.3 mg/dL Normal 2.5-4.[address] [facility] Comment on above: Result Comment: The performance characteristics of phosphorus testing in heparinized plasma have been validated by the individual laboratory site where testing is performed. Testing on heparinized plasma is not approved by the FDA; however, such approval is not necessary. Performed By: #### 2 4362-6 ####ANDI Cotter ([id number])[facility] ([facility])[address] [place] [address]68 Potassium [Moles/Vol] 3.4 mmol/L Low 3.5-5.3 [facility] Comment on above: Performed By: #### 2 4362-6 ####ANDI Cotter ([id number])[facility] ([facility])[address] [place] [address] Sodium [Moles/Vol] 136 mmol/L Normal 136-145 [facility] Comment on above: Performed By: #### 2 4362-6 ####ANDI Cotter ([id number])[facility] ([facility])[address] [place] [address] Urea nitrogen [Mass/Vol] 12 mg/dL Normal 6-23 [facility] Comment on above: Performed By: #### 2 4362-6 ####ANDI Cotter ([id number])[facility] ([facility])[address] [place] [address] 76193 Urine cultureOrdered By: Kadeem Ortega on 11-13-2023 Bacteria identified Cx Nom (U) <10,000 Streptococcus agalactiae (Group B Streptococcus) Abnormal [facility] Bacteria identifiedon 2023 Bacteria identified Cx Nom (U) Abnormal [facility] Comment on above: Performed By: #### 6 30-4 ####ANDI Cotter ([id number])[facility] ([facility])[address] [place] [address]72 CBC panel Auto (Bld)on 11-12 Erythrocyte distribution width (RBC) [Ratio] 14.3 % 11.5 - 14.5 % [facility] Hematocrit (Bld) [Volume fraction] 35.0 % Low 36.0 - 46.0 % [facility] Hemoglobin (Bld) [Mass/Vol] 11.1 g/dL Low 12.0 - 16.0 g/dL [facility] Interpretation and review of laboratory results Abnormal [facility] MCH (RBC) [Entitic mass] 29.0 pg 26.0 - 34.0 pg [facility] MCHC (RBC) [Mass/Vol] 31.7 g/dL Low 32.0 - 36.0 g/dL [facility] MCV (RBC) [Entitic vol] 91 fL 80 - 100 fL [facility] Nucleated RBC/100 WBC (Bld) [Ratio] 0.0 % [facility] Platelets (Bld) [#/Vol] 255 10*3/uL [facility] RBC (Bld) [#/Vol] 3.83 10*6/uL Low [facility] WBC (Bld) [#/Vol] 5.3 10*3/uL [facility] Erythrocyte distribution width (RBC) [Ratio] 14.3 % Normal 11.5-14.5 [facility] Comment on above: Performed By: #### 5 8410-2 ####ANDI Cotter ([id number])[facility] ([facility])[address] [place] [address] Hematocrit (Bld) [Volume fraction] 35.0 % Low 36.0-46.0 [facility] Comment on above: Performed By: #### 5 8410-2 ####ANDI Cotter ([id number])[facility] ([facility])[address] [place] [address] Hemoglobin (Bld) [Mass/Vol] 11.1 g/dL Low 12.0-16.0 [facility] Comment on above: Performed By: #### 5 8410-2 ####ANDI Cotter ([id number])[facility] ([facility])[address] [place] [address] MCH (RBC) [Entitic mass] 29.0 pg Normal 26.0-34.0 [facility] Comment on above: Performed By: #### 5 8410-2 ####ANDI Cotter ([id number])[facility] ([facility])[address] [place] [address] MCHC (RBC) [Mass/Vol] 31.7 g/dL Low 32.0-36.0 [facility] Comment on above: Performed By: #### 5 8410-2 ####ANDI Cotter ([id number])[facility] ([facility])[address] [place] [address] MCV (RBC) [Entitic vol] 91 fL Normal 80-100 [facility] Comment on above: Performed By: #### 5 8410-2 ####ANDI Cotter ([id number])[facility] ([facility])[address] [place] [address] Nucleated RBC/100 WBC (Bld) [Ratio] 0.0 /100 WBCs Normal 0.0-0.0 [facility] Comment on above: Performed By: #### 5 8410-2 ####ANDI Cotter ([id number])[facility] ([facility])[address] [place] [address] Platelets (Bld) [#/Vol] 255 x10*3/uL Normal 150-450 [facility] Comment on above: Performed By: #### 5 8410-2 ####ANDI Cotter ([id number])[facility] ([facility])[address] [place] [address] RBC (Bld) [#/Vol] 3.83 x10*6/uL Low 4.00-5.[address] [facility] Comment on above: Performed By: #### 5 8410-2 ####ANDI Cotter ([id number])[facility] ([facility])[address] [place] [address] WBC (Bld) [#/Vol] 5.3 x10*3/uL Normal 4.4-11.3 [facility] Comment on above: Performed By: #### 5 8410-2 ####ANDI Cotter ([id number])[facility] ([facility])[address] [place] [address] Glucose Test strip manual (B ld) [Mass/Vol]on 11-12-2023 Glucose [Mass/Vol] 229 mg/dL High 74 - 99 mg/dL [facility] Interpretation and review of laboratory results Abnormal [facility] Glucose [Mass/Vol] 229 mg/dL High 74-99 [facility] Comment on above: Performed By: #### 2 341-6 ####ANDI Cotter ([id number])[facility] ([facility])[address] [place] [address] Glucose [Mass/Vol] 294 mg/dL High 74 - 99 mg/dL [facility] Interpretation and review of laboratory results Abnormal [facility] Glucose [Mass/Vol] 294 mg/dL High 74-99 [facility] Comment on above: Performed By: #### 2 341-6 ####ANDI Cotter ([id number])[facility] ([facility])[address] [place] [address] Glucose [Mass/Vol] 275 mg/dL High 74 - 99 mg/dL [facility] Comment on above: RN/ NOTIFIED Interpretation and review of laboratory results Abnormal [facility] Glucose [Mass/Vol] 275 mg/dL High 74-99 [facility] Comment on above: Result Comment: KAY/Abdoulaye Dillon NOTIFIED Performed By: #### 2 341-6 ####ANDI Cotter ([id number])[facility] ([facility])[address] [place], [place] [address] Glucose [Mass/Vol] 214 mg/dL High 74 - 99 mg/dL [facility] Interpretation and review of laboratory results Abnormal [facility] Glucose [Mass/Vol] 214 mg/dL High 74-99 [facility] Comment on above: Performed By: #### 2 341-6 ####ANDI Cotter ([id number])[facility] ([facility])[address] [place] [address] Glucose [Mass/Vol] 191 mg/dL High 74 - 99 mg/dL [facility] Interpretation and review of laboratory results Abnormal [facility] Glucose [Mass/Vol] 191 mg/dL High 74-99 [facility] Comment on above: Performed By: #### 2 341-6 ####ANDI Cotter ([id number])[facility] ([facility])[address] [place] [address] Heparin Assay, UFHon 024 Heparin unfractionated Chromogenic method Qn (PPP) 0.4 See Comment Below for Therapeutic Ranges IU/mL [facility] Heparin unfractionated Chromogenic method Qn (PPP) 0.2 See Comment Below for Therapeutic Ranges IU/mL [facility] Heparin unfractionated Chromogenic method Qn (PPP) 0.3 See Comment Below for Therapeutic Ranges IU/mL [facility] Heparin unfractionated Chromogenic method Qn (PPP) 0.2 See Comment Below for Therapeutic Ranges IU/mL [facility] Heparin unfractionated Chromogenic method Qn (PPP) 0.2 See Comment Below for Therapeutic Ranges IU/mL [facility] Heparin unfractionated Chrom ogenic method Qn (PPP)on 11-12-2023 Interpretation and review of laboratory results Normal [facility] The therapeutic reference range for UFH may be either 0.3-0.6 IU/mL or 0.3-0.7 IU/mL based on the clinical setting for anticoagulant therapy and the associated nomogram used. For Heparin dosing guidelines based on clinical scenario and Heparin Assay results, please refer to local Pharmacy and the [facility] Guidelines for Anticoagulation Therapy available on the [facility] intranet at: [email or web address] [email or web address]_Guidelines_for_Antic oagu.aspx [facility] Interpretation and review of laboratory results Normal [facility] The therapeutic reference range for UFH may be either 0.3-0.6 IU/mL or 0.3-0.7 IU/mL based on the clinical setting for anticoagulant therapy and the associated nomogram used. For Heparin dosing guidelines based on clinical scenario and Heparin Assay results, please refer to local Pharmacy and [facility] Guidelines for Anticoagulation Therapy available on the [facility] intranet at: [email or web address] [email or web address]_[facility] ls_Guidelines_for_Antic oagu.aspx [facility] Interpretation and review of laboratory results Normal [facility] The therapeutic reference range for UFH may be either 0.3-0.6 IU/mL or 0.3-0.7 IU/mL based on the clinical setting for anticoagulant therapy and the associated nomogram used. For Heparin dosing guidelines based on clinical scenario and Heparin Assay results, please refer to local Pharmacy and the [facility] Guidelines for Anticoagulation Therapy available on the [facility] intranet at: [email or web address] [email or web address]_[facility] ls_Guidelines_for_Antic oagu.aspx [facility] Interpretation and review of laboratory results Normal [facility] The therapeutic reference range for UFH may be either 0.3-0.6 IU/mL or 0.3-0.7 IU/mL based on the clinical setting for anticoagulant therapy and the associated nomogram used. For Heparin dosing guidelines based on clinical scenario and Heparin Assay results, please refer to local Pharmacy and the [facility] Guidelines for Anticoagulation Therapy available on the [facility] intranet at: [email or web address] [email or web address]/P ages/[place]_[facility] ls_Guidelines_for_Antic oagu.aspx [facility] Interpretation and review of laboratory results Normal [facility] The therapeutic reference range for UFH may be either 0.3-0.6 IU/mL or 0.3-0.7 IU/mL based on the clinical setting for anticoagulant therapy and the associated nomogram used. For Heparin dosing guidelines based on clinical scenario and Heparin Assay results, please refer to local Pharmacy and the [facility] Guidelines for Anticoagulation Therapy available on the [facility] intranet at: [email or web address]://[email or web address] [email or web address]/Pharmacy/P ages/[place]_[facility]_Guidelines_for_Antic oagu.aspx [facility] Heparin.unfractionatedon Heparin unfractionated Chromogenic method Qn (PPP) 0.4 IU/mL Normal See Comment Below for Therapeutic Ranges [facility] Comment on above: [...] results, please refer to local Pharmacy and [facility] Guidelines for Anticoagulation Therapy available on the [facility] intranet at: [email or web address]://[email or web address]/Pharmacy/Pages/[place]_ spital_Guidelines_for_Anticoagu.aspx Performed By: #### 3 274-8 ####ANDI Cotter ([id number])[facility] ([facility])[address] [place] [address] Heparin unfractionated Chromogenic method Qn (PPP) 0.2 IU/mL Normal See Comment Below for Therapeutic Ranges [facility] Comment on above: [...] please refer to local Pharmacy and the [facility] Guidelines for Anticoagulation Therapy available on the [facility] intranet at: [email or web address]://[email or web address]/Pharmacy/Pages/[facility]_Guidelines_for_Anticoagu.aspx Performed By: #### 3 274-8 ####ANDI Cotter ([id number])[facility] ([facility])[address] [place] [address] Heparin unfractionated Chromogenic method Qn (PPP) 0.3 IU/mL Normal See Comment Below for Therapeutic Ranges [facility] Comment on above: [...] results, please refer to local Pharmacy and [facility] Guidelines for Anticoagulation Therapy available on the [facility] intranet at: https://[email or web address]/Pharmacy/Pages/[place]_ spitals_Guidelines_for_Anticoagu.aspx Performed By: #### 3 274-8 ####ANDI Cotter ([id number])[facility] ([facility])[address] [place] [address] Heparin unfractionated Chromogenic method Qn (PPP) 0.2 IU/mL Normal See Comment Below for Therapeutic Ranges [facility] Comment on above: [...] please refer to local Pharmacy and the [facility] Guidelines for Anticoagulation Therapy available on the [facility] intranet at: [email or web address]://[email or web address]/Pharmacy/Pages/[place]_ spitals_Guidelines_for_Anticoagu.aspx Performed By: #### 3 274-8 ####ANDI Cotter ([id number])[facility] ([facility])[address] [place] [address] Magnesiumon 11-12-2023 Magnesium [Mass/Vol] 1.81 mg/dL 1.60 - 2.40 mg/dL [facility] Magnesium [Mass/Vol] 1.81 mg/dL Normal 1.60-2.[address] [facility] Comment on above: Performed By: #### 1 9123-9 ####ANDI Cotter ([id number])[facility] ([facility])[address] [place] [address] Magnesium [Mass/Vol]on 11-12 Interpretation and review of laboratory results Normal [facility] No Panel Informationon 11-12 [facility] Renal function 2000 panelon 11-12-2023 Albumin BCP dye [Mass/Vol] 4.0 g/dL 3.4 - 5.0 g/dL [facility] Anion gap [Moles/Vol] 16 mmol/L 10 - 2 0 mmol/L [facility] Calcium [Mass/Vol] 8.8 mg/dL 8.6 - 10. 6 mg/dL [facility] Chloride [Moles/Vol] 98 mmol/L 98 - 10 7 mmol/L [facility] CO2 [Moles/Vol] 26 mmol/L 21 - 32 mmol/L [facility] Creatinine [Mass/Vol] 0.68 mg/dL 0.50 - 1.05 mg/dL [facility] eGFR - PINF [facility] Comment on above: Calculations of estuardo mated GFR are performed using the 2020 CKD-EPI Study Refit equation without the race variable for the IDMS-Traceable creatinine methods. https://jasn.asnjournals.org/content//ASN.119206 5533 Glucose [Mass/Vol] 205 mg/dL High 74 - 99 mg/dL [facility] Interpretation and review of laboratory results Abnormal [facility] Phosphate [Mass/Vol] 2.8 mg/dL 2.5 - 4 .9 mg/dL [facility] Comment on above: The performance timi acteristics of phosphorus testing in heparinized plasma have been validated by the individual laboratory site where testing is performed. Testing on heparinized plasma is not approved by the FDA; however, such approval is not necessary. Potassium [Moles/Vol] 3.6 mmol/L 3.5 - 5.3 mmol/L [facility] Sodium [Moles/Vol] 136 mmol/L 136 - 145 mmol/L [facility] Urea nitrogen [Mass/Vol] 9 mg/dL 6 - 23 mg/dL [facility] Albumin BCP dye [Mass/Vol] 4.0 g/dL Normal 3.4-5.0 [facility] Comment on above: Performed By: #### 2 4362-6 ####ANDI Cotter ([id number])[facility] ([facility])[address] [place] [address] Anion gap [Moles/Vol] 16 mmol/L Normal 10-20 [facility] Comment on above: Performed By: #### 2 4362-6 ####ANDI Cotter ([id number])[facility] ([facility])[address] [place] [address] Calcium [Mass/Vol] 8.8 mg/dL Normal 8.6-10.6 [facility] Comment on above: Performed By: #### 2 4362-6 ####ANDI Cotter ([id number])[facility] ([facility])[address] [place] [address] Chloride [Moles/Vol] 98 mmol/L Normal 98-[address] [facility] Comment on above: Performed By: #### 2 4362-6 ####ANDI Cotter ([id number])[facility] ([facility])[address] [place] [address] CO2 [Moles/Vol] 26 mmol/L Normal 21-32 [facility] Comment on above: Performed By: #### 2 4362-6 ####ANDI Cotter ([id number])[facility] ([facility])[address] [place] [address] Creatinine [Mass/Vol] 0.68 mg/dL Normal 0.50-1.05 [facility] Comment on above: Performed By: #### 2 4362-6 ####ANDI Cotter ([id number])[facility] ([facility])[address] [place] [address] GFR/1.73 sq M.predicted MDRD (S/P/Bld) [Vol rate/Area] mL/min/{1.73_m2} Normal >60 [facility] Comment on above: Result Comment: Calc ulations of estimated GFR are performed using the 2020 CKD-EPI Study Refit equation without the race variable for the IDMS-Traceable creatinine methods.https://jasn.asnjournals.org/content// N.3431134794 Performed By: #### 2 4362-6 ####ANDI Cotter ([id number])[facility] ([facility])[address] [place] [address] Glucose [Mass/Vol] 205 mg/dL High 74-99 [facility] Comment on above: Performed By: #### 2 4362-6 ####ANDI Cotter ([id number])[facility] ([facility])[address] [place] [address] Phosphate [Mass/Vol] 2.8 mg/dL Normal 2.5-4.[address] [facility] Comment on above: Result Comment: The performance characteristics of phosphorus testing in heparinized plasma have been validated by the individual laboratory site where testing is performed. Testing on heparinized plasma is not approved by the FDA; however, such approval is not necessary. Performed By: #### 2 4362-6 ####ANDI Cotter ([id number])[facility] ([facility])[address] [place] [address] Potassium [Moles/Vol] 3.6 mmol/L Normal 3.5-5.3 [facility] Comment on above: Performed By: #### 2 4362-6 ####ANDI Cotter ([id number])[facility] ([facility])[address] [place] [address] Sodium [Moles/Vol] 136 mmol/L Normal 136-145 [facility] Comment on above: Performed By: #### 2 4362-6 ####ANDI Cotter ([id number])[facility] ([facility])[address] [place] [address] Urea nitrogen [Mass/Vol] 9 mg/dL Normal 6-23 [facility] Comment on above: Performed By: #### 2 4362-6 ####ANDI Cotter ([id number])[facility] ([facility])[address] [place] [address] Urinalysis complete W Reflex Culture panel (U)on 11-12-2023 Appearance (U) Clear Clear [facility] Bilirubin (U) [Mass/Vol] Negative NEGATIVE [facility] Color (U) Light-Yellow Light-Yellow , Yellow, Dark-Yellow [facility] Glucose Auto test strip (U) [Mass/Vol] 70 (1+) Abnormal Normal mg/dL [facility] Interpretation and review of laboratory results Abnormal [facility] Ketones (U) [Mass/Vol] Negative NEGATIVE mg/dL [facility] Leukocyte esterase Auto test strip Ql (U) Negative NEGATIVE [facility] Nitrite Auto test strip Ql (U) Negative NEGATIVE [facility] pH (U) 7.0 [pH] 5.0, 5.5, 6.0, 6.5, 7.0, 7.5, 8.0 [facility] Protein (U) [Mass/Vol] Negative NEGATIVE, 10 (TRACE), 20 (TRACE) mg/dL [facility] RBC (U) [#/Vol] Negative NEGATIVE [facility] Specific gravity (U) [Rel density] 1.008 1.005 - 1.035 [facility] Urobilinogen (U) [Mass/Vol] Normal Normal mg/dL [facility] Appearance (U) Clear Normal Clear [facility] Comment on above: Performed By: #### 5 8077-9 ####ANDI Cotter ([id number])[facility] ([facility])[address] [place] [address] Bilirubin (U) [Mass/Vol] Negative Normal NEGATIVE [facility] Comment on above: Performed By: #### 5 8077-9 ####ANDI Cotter ([id number])[facility] ([facility])[address] [place] [address] [place] [address] Color (U) Light-Yellow Normal Light-Yellow , Yellow, Dark-Yellow [facility] Comment on above: Performed By: #### 5 8077-9 ####ANDI Cotter ([id number])[facility] ([facility])[address] [place] [address] Glucose Auto test strip (U) [Mass/Vol] 70 (1+) Abnormal Normal [facility] Comment on above: Performed By: #### 5 8077-9 ####ANDI Cotter ([id number])[facility] ([facility])[address] [place] [address] Ketones (U) [Mass/Vol] Negative Normal NEGATIVE [facility] Comment on above: Performed By: #### 5 8077-9 ####ANDI Cotter ([id number])[facility] ([facility])[address] [place] [address] Leukocyte esterase Auto test strip Ql (U) Negative Normal NEGATIVE [facility] Comment on above: Performed By: #### 5 8077-9 ####ANDI Cotter ([id number])[facility] ([facility])[address] [place] [address] Nitrite Auto test strip Ql (U) Negative Normal NEGATIVE [facility] Comment on above: Performed By: #### 5 8077-9 ####ANDI Cotter ([id number])[facility] ([facility])[address] [place] [address] pH (U) 7.0 [pH] Normal 5.0, 5.5, 6.0, 6.5, 7.0, 7.5, 8.0 [facility] Comment on above: Performed By: #### 5 8077-9 ####ANDI Cotter ([id number])[facility] ([facility])[address] [place] [address] Protein (U) [Mass/Vol] Negative Normal NEGATIVE, 10 (TRACE), 20 (TRACE) [facility] Comment on above: Performed By: #### 5 8077-9 ####ANDI Cotter ([id number])[facility] ([facility])[address] [place] [address] RBC (U) [#/Vol] Negative Normal NEGATIVE [facility] Comment on above: Performed By: #### 5 8077-9 ####ANDI Cotter ([id number])[facility] ([facility])[address] [place] [address] Specific gravity (U) [Rel density] 1.008 Normal 1.005-1.035 [facility] Comment on above: Performed By: #### 5 8077-9 ####ANDI Cotter ([id number])[facility] ([facility])[address] [place] [address] Urobilinogen (U) [Mass/Vol] Normal Normal Normal [facility] Comment on above: Performed By: #### 5 8077-9 ####ANDI Cotter ([id number])[facility] ([facility])[address] [place] [address] CBC panel Auto (Bld)on 11-11 Erythrocyte distribution width (RBC) [Ratio] 14.2 % 11.5 - 14.5 % [facility] Hematocrit (Bld) [Volume fraction] 33.3 % Low 36.0 - 46.0 % [facility] Hemoglobin (Bld) [Mass/Vol] 11.1 g/dL Low 12.0 - 16.0 g/dL [facility] Interpretation and review of laboratory results Abnormal [facility] MCH (RBC) [Entitic mass] 29.2 pg 26.0 - 34.0 pg [facility] MCHC (RBC) [Mass/Vol] 33.3 g/dL 32.0 - 36.0 g/dL [facility] MCV (RBC) [Entitic vol] 88 fL 80 - 100 fL [facility] Nucleated RBC/100 WBC (Bld) [Ratio] 0.0 % [facility] Platelets (Bld) [#/Vol] 243 10*3/uL [facility] RBC (Bld) [#/Vol] 3.80 10*6/uL Low [facility] WBC (Bld) [#/Vol] 4.9 10*3/uL [facility] Erythrocyte distribution width (RBC) [Ratio] 14.2 % Normal 11.5-14.5 [facility] Comment on above: Order Comment: Obtai n prior to initiation of Heparin Therapy if not obtained in prior 24 hours - Nursing to release order. Performed By: #### 5 8410-2 ####ANDI Cotter ([id number])[facility] ([facility])[address] [place] [address] Hematocrit (Bld) [Volume fraction] 33.3 % Low 36.0-46.0 [facility] Comment on above: Order Comment: Obtai n prior to initiation of Heparin Therapy if not obtained in prior 24 hours - Nursing to release order. Performed By: #### 5 8410-2 ####ANDI Cotter ([id number])[facility] ([facility])[address] [place] [address] Hemoglobin (Bld) [Mass/Vol] 11.1 g/dL Low 12.0-16.0 [facility] Comment on above: Order Comment: Obtai n prior to initiation of Heparin Therapy if not obtained in prior 24 hours - Nursing to release order. Performed By: #### 5 8410-2 ####ANDI Cotter ([id number])[facility] ([facility])[address] [place] [address] MCH (RBC) [Entitic mass] 29.2 pg Normal 26.0-34.0 [facility] Comment on above: Order Comment: Obtai n prior to initiation of Heparin Therapy if not obtained in prior 24 hours - Nursing to release order. Performed By: #### 5 8410-2 ####ANDI Cotter ([id number])[facility] ([facility])[address] [place] [address] MCHC (RBC) [Mass/Vol] 33.3 g/dL Normal 32.0-36.0 [facility] Comment on above: Order Comment: Obtai n prior to initiation of Heparin Therapy if not obtained in prior 24 hours - Nursing to release order. Performed By: #### 5 8410-2 ####ANDI Cotter ([id number])[facility] ([facility])[address] [place] [address] MCV (RBC) [Entitic vol] 88 fL Normal 80-100 [facility] Comment on above: Order Comment: Obtai n prior to initiation of Heparin Therapy if not obtained in prior 24 hours - Nursing to release order. Performed By: #### 5 8410-2 ####ANDI Cotter ([id number])[facility] ([facility])[address] [place] [address] Nucleated RBC/100 WBC (Bld) [Ratio] 0.0 /100 WBCs Normal 0.0-0.0 [facility] Comment on above: Order Comment: Obtai n prior to initiation of Heparin Therapy if not obtained in prior 24 hours - Nursing to release order. Performed By: #### 5 8410-2 ####ANDI Cotter ([id number])[facility] ([facility])[address] [place] [address] Platelets (Bld) [#/Vol] 243 x10*3/uL Normal 150-450 [facility] Comment on above: Order Comment: Obtai n prior to initiation of Heparin Therapy if not obtained in prior 24 hours - Nursing to release order. Performed By: #### 5 8410-2 ####ANDI Cotter ([id number])[facility] ([facility])[address] [place] [address] RBC (Bld) [#/Vol] 3.80 x10*6/uL Low 4.00-5.[address] [facility] Comment on above: Order Comment: Obtai n prior to initiation of Heparin Therapy if not obtained in prior 24 hours - Nursing to release order. Performed By: #### 5 8410-2 ####ANDI Cotter ([id number])[facility] ([facility])[address] [place] [address] WBC (Bld) [#/Vol] 4.9 x10*3/uL Normal 4.4-11.3 [facility] Comment on above: Order Comment: Obtai n prior to initiation of Heparin Therapy if not obtained in prior 24 hours - Nursing to release order. Performed By: #### 5 8410-2 ####ANDI Cotter ([id number])[facility] ([facility])[address] [place] [address] Coagulation surface inducedo n 11-11-2023 aPTT Coag (PPP) [Time] 29 s Normal 27-38 [facility] Comment on above: Order Comment: Prior to initiating heparin if not obtained in prior 48 hours. Nursing to release order.The APTT is no longer used for monitoring Unfractionated Heparin Therapy. For monitoring Heparin Therapy, use the Heparin Assay. Performed By: #### 1 4979-9 ####ANDI Cotter ([id number])[facility] ([facility])[address] [place] [address] Coagulation tissue factor in ducedon 11-11-2023 PT Coag (PPP) [Time] 13.6 s High 9.8-12.[address] [facility] Comment on above: Order Comment: If nawaf earl has not had PT + INR in the last 24 hours. Nursing to release order. Performed By: #### 5 902-2 ####ANDI Cotter ([id number])[facility] ([facility])[address] [place] [address] DRUG SCREEN,URINEon 11-11-19 Amphetamines Screen Ql (U) Negative Normal Presumptive Negative [facility] Comment on above: Order Comment: Drug screen results are presumptive and should not be used to assesscompliance with prescribed medication. Contact the performing [facility] laboratoryto add-on definitive confirmatory testing if clinically [...] Performed By: #### D RUG3 ####ANDI Cotter ([id number])[facility] ([facility])[address] [place] [address] Barbiturates Screen Ql (U) Negative Normal Presumptive Negative [facility] Comment on above: Order Comment: Drug screen results are presumptive and should not be used to assesscompliance with prescribed medication. Contact the performing [facility] laboratoryto add-on definitive confirmatory testing if clinically [...] Performed By: #### D RUG3 ####ANDI Cotter ([id number])[facility] ([facility])[address] [place], [place] [id number] Benzodiazepines Ql (U) Negative Normal Presumptive Negative [facility] Comment on above: Order Comment: Drug screen results are presumptive and should not be used to assesscompliance with prescribed medication. Contact the performing [facility] laboratoryto add-on definitive confirmatory testing if clinically [...] By: #### D RUG3 ####ANDI RENEEER L ([id number])[facility] ([facility])[address] [place] [address] Benzoylecgonine Screen Ql (U) Negative Normal Presumptive Negative [facility] Comment on above: Order Comment: Drug screen results are presumptive and should not be used to assesscompliance with prescribed medication. Contact the performing [facility] laboratoryto add-on definitive confirmatory testing if clinically [...] By: #### D RUG3 ####ANDI RAJPUTMOTZER L ([id number])[facility] ([facility])[address] [place], [place] [phone] Cannabinoids Screen Ql (U) Negative Normal Presumptive Negative [facility] Comment on above: Order Comment: Drug screen results are presumptive and should not be used to assesscompliance with prescribed medication. Contact the performing [facility] laboratoryto add-on definitive confirmatory testing if clinically [...] Performed By: #### D RUG3 ####ANDI Cotter ([id number])[facility] ([facility])[address] [place] [address] fentaNYL+Norfentanyl Screen Ql (U) Negative Normal Presumptive Negative [facility] Comment on above: Order Comment: Drug screen results are presumptive and should not be used to assesscompliance with prescribed medication. Contact the performing [facility] laboratoryto add-on definitive confirmatory testing if clinically [...] Performed By: #### D RUG3 ####ANDI Cotter ([id number])[facility] ([facility])[address] [place], [place] [phone] Opiates Screen Ql (U) Positive Abnormal Presum ptive Negative [facility] Comment on above: Order Comment: Drug screen results are presumptive and should not be used to assesscompliance with prescribed medication. Contact the performing [facility] laboratoryto add-on definitive confirmatory testing if clinically [...] Performed By: #### D RUG3 ####ANDI Cotter ([id number])[facility] ([facility])[address] [place] [address] oxyCODONE+oxyMORphone Screen Ql (U) Negative Normal Presumptive Negative [facility] Comment on above: Order Comment: Drug screen results are presumptive and should not be used to assesscompliance with prescribed medication. Contact the performing [facility] laboratoryto add-on definitive confirmatory testing if clinically [...] Performed By: #### Mariaa RUG3 ####ANDI Cotter ([id number])[facility] ([facility])[address] [place] [address] Phencyclidine Ql (U) Negative Normal Presump tive Negative [facility] Comment on above: Order Comment: Drug screen results are presumptive and should not be used to assesscompliance with prescribed medication. Contact the performing [facility] laboratoryto add-on definitive confirmatory testing if clinically [...] Performed By: #### D RUG3 ####ANDI Cotter ([id number])[facility] ([facility])[address] [place] [address] Drug Screen, Urineon 024 Amphetamines Screen Ql (U) Negative Presumptive Negative [facility] Comment on above: CUTOFF LEVEL: 500 NG /ML Cross-reactivity has been reported with high concentrations of the following drugs: buproprion, chloroquine, chlorpromazine, ephedrine, mephentermine, fenfluramine, phentermine, phenylpropanolamine, pseudoephedrine, and propranolol. Barbiturates Screen Ql (U) Negative Presumptive Negative [facility] Comment on above: CUTOFF LEVEL: 200 NG /ML Benzodiazepines Ql (U) Negative Presumptive Negative [facility] Comment on above: CUTOFF LEVEL: 200 NG /ML Benzoylecgonine Screen Ql (U) Negative Presumptive Negative [facility] Comment on above: CUTOFF LEVEL: 150 NG /ML Cannabinoids Screen Ql (U) Negative Presumptive Negative [facility] Comment on above: CUTOFF LEVEL: 50 NG/ ML fentaNYL+Norfentanyl Screen Ql (U) Negative Presumptive Negative [facility] Comment on above: CUTOFF LEVEL: 5 NG/M L Interpretation and review of laboratory results Abnormal [facility] Opiates Screen Ql (U) Positive Abnormal Presum ptive Negative [facility] Comment on above: CUTOFF LEVEL: 300 NG /ML The opiate screen does not detect fentanyl, meperidine, or tramadol. Oxycodone is not consistently detected (refer to Oxycodone Screen, Urine result). oxyCODONE+oxyMORphone Screen Ql (U) Negative Presumptive Negative [facility] Comment on above: CUTOFF LEVEL: 100 NG /ML This test will accurately detect both oxycodone and oxymorphone. Phencyclidine Ql (U) Negative Presump tive Negative [facility] Comment on above: CUTOFF LEVEL: 25 NG/ ML Cross-reactivity has been reported with dextromethorphan. Drug screen results are presumptive and should not be used to assess compliance with prescribed medication. Contact the performing [facility] laboratory to add-on definitive confirmatory testing if [...] be directed to the laboratory medical directors. [facility] Glucose Test strip manual (B ld) [Mass/Vol]on 11-11-2023 Glucose [Mass/Vol] 231 mg/dL High 74 - 99 mg/dL [facility] Interpretation and review of laboratory results Abnormal [facility] Glucose [Mass/Vol] 231 mg/dL High 74-99 [facility] Comment on above: Performed By: #### 2 341-6 ####ANDI Cotter ([id number])[facility] ([facility])[address] [place] [address] Glucose [Mass/Vol] 188 mg/dL High 74 - 99 mg/dL [facility] Interpretation and review of laboratory results Abnormal [facility] Glucose [Mass/Vol] 188 mg/dL High 74-99 [facility] Comment on above: Performed By: #### 2 341-6 ####ANDI Cotter ([id number])[facility] ([facility])[address] [place] [address] Glucose [Mass/Vol] 244 mg/dL High 74 - 99 mg/dL [facility] Interpretation and review of laboratory results Abnormal [facility] Glucose [Mass/Vol] 244 mg/dL High 74-99 [facility] Comment on above: Performed By: #### 2 341-6 ####ANDI RAJPUTMOTZJYOTI L ([id number])[facility] ([facility])[address] [place] [address] Glucose [Mass/Vol] 179 mg/dL High 74 - 99 mg/dL [facility] Interpretation and review of laboratory results Abnormal [facility] Glucose [Mass/Vol] 179 mg/dL High 74-99 [facility] Comment on above: Performed By: #### 2 341-6 ####ANDI Cotter ([id number])[facility] ([facility])[address] [place] [address] Glucose [Mass/Vol] 158 mg/dL High 74 - 99 mg/dL [facility] Interpretation and review of laboratory results Abnormal [facility] Glucose [Mass/Vol] 158 mg/dL High 74-99 [facility] Comment on above: Performed By: #### 2 341-6 ####ANDI Cotter ([id number])[facility] ([facility])[address] [place] [address] Glucose [Mass/Vol] 154 mg/dL High 74 - 99 mg/dL [facility] Interpretation and review of laboratory results Abnormal [facility] Glucose [Mass/Vol] 154 mg/dL High 74-99 [facility] Comment on above: Performed By: #### 2 341-6 ####ANDI Cotter ([id number])[facility] ([facility])[address] [place] [address] Heparin Assay, UFHon 024 Heparin unfractionated Chromogenic method Qn (PPP) 0.2 See Comment Below for Therapeutic Ranges IU/mL [facility] Heparin unfractionated Chrom ogenic method Qn (PPP)on 11-11-2023 Interpretation and review of laboratory results Normal [facility] The therapeutic reference range for UFH may be either 0.3-0.6 IU/mL or 0.3-0.7 IU/mL based on the clinical setting for anticoagulant therapy and the associated nomogram used. For Heparin dosing guidelines based on clinical scenario and Heparin Assay results, please refer to local Pharmacy and the [facility] Guidelines for Anticoagulation Therapy available on the [facility] intranet at: [email or web address] [email or web address] ls_Guidelines_for_Antic oagu.aspx [facility] Heparin.unfractionatedon Heparin unfractionated Chromogenic method Qn (PPP) 0.2 IU/mL Normal See Comment Below for Therapeutic Ranges [facility] Comment on above: [...] please refer to local Pharmacy and the [facility] Guidelines for Anticoagulation Therapy available on the [facility] intranet at: [email or web address] [email or web address] fairfaxLED [email or web address]/Pages/[place]_Guidelines_for_Anticoagu.aspx Performed By: #### 3 274-8 ####ANDI Cotter ([id number])[facility] ([facility])[address] [place] [address] Heparin unfractionated Chromogenic method Qn (PPP) 0.2 IU/mL Normal See Comment Below for Therapeutic Ranges [facility] Comment on above: [...] please refer to local Pharmacy and the [facility] Guidelines for Anticoagulation Therapy available on the [facility] intranet at: [email or web address]/Pages/[place] Hospital[facility]als_Guidelines_for_Anticoagu.aspx Performed By: #### 3 274-8 ####ANDI Cotter ([id number])[facility] ([facility])[address] [place] [address] No Panel Informationon 11-11 [facility] PT Coag (PPP) [Time]on 11-11 INR Coag (PPP) [Relative time] 1.2 {INR} High 0.9 - 1.1 [facility] Interpretation and review of laboratory results Abnormal [facility] INR Coag (PPP) [Relative time] 1.2 High 0.9-1.1 [facility] Comment on above: Order Comment: If nawaf earl has not had PT + INR in the last 24 hours. Nursing to release order. Performed By: #### 5 902-2 ####ANDI Cotter ([id number])[facility] ([facility])[address] [place] [address] Protime-INRon 11-11-2023 PT Coag (PPP) [Time] 13.6 s High [facility] aPTT - baselineon 11-11-2023 aPTT Coag (PPP) [Time] 29 s [facility] aPTT Coag (PPP) [Time]on Interpretation and review of laboratory results Normal [facility] The APTT is no longe r used for monitoring Unfractionated Heparin Therapy. For monitoring Heparin Therapy, use the Heparin Assay. [facility] Blood Gas Lactic Acid, Venou sOrdered By: Yamilex Leung on 11-10-2023 Lactate (BldV) [Moles/Vol] 2.0 mmol/L 0.4 - 2.0 mmol/L [facility] CBC W Auto Differential pane l (Bld)on 11-10-2023 Basophils (Bld) [#/Vol] 0.07 10*3/uL [facility] Basophils/100 WBC (Bld) 0.6 % 0.0 - 2.0 % [facility] Eosinophils (Bld) [#/Vol] 0.17 10*3/uL [facility] Eosinophils/100 WBC (Bld) 1.5 % 0.0 - 6.0 % [facility] Erythrocyte distribution width (RBC) [Ratio] 14.1 % 11.5 - 14.5 % [facility] Hematocrit (Bld) [Volume fraction] 39.5 % 36.0 - 46.0 % [facility] Hemoglobin (Bld) [Mass/Vol] 13.1 g/dL 12.0 - 16.0 g/dL [facility] Immature granulocytes (Bld) [#/Vol] 0.06 10*3/uL [facility] Immature granulocytes/100 WBC (Bld) 0.5 % 0.0 - 0.9 % [facility] Comment on above: Immature Granulocyte Count (IG) includes promyelocytes, myelocytes and metamyelocytes but does not include bands. Percent differential counts (%) should be interpreted in the context of the absolute cell counts (cells/UL). Interpretation and review of laboratory results Abnormal [facility] Lymphocytes (Bld) [#/Vol] 1.66 10*3/uL [facility] Lymphocytes/100 WBC (Bld) 14.8 % 13.0 - 44.0 % [facility] MCH (RBC) [Entitic mass] 28.7 pg 26.0 - 34.0 pg [facility] MCHC (RBC) [Mass/Vol] 33.2 g/dL 32.0 - 36.0 g/dL [facility] MCV (RBC) [Entitic vol] 86 fL 80 - 100 fL [facility] Monocytes (Bld) [#/Vol] 0.70 10*3/uL [facility] Monocytes/100 WBC (Bld) 6.2 % 2.0 - 10.0 % [facility] Neutrophils (Bld) [#/Vol] 8.57 10*3/uL High [facility] Comment on above: Percent differential counts (%) should be interpreted in the context of the absolute cell counts (cells/uL). Neutrophils/100 WBC (Bld) 76.4 % 40.0 - 80.0 % [facility] Nucleated RBC/100 WBC (Bld) [Ratio] 0.0 % [facility] Platelets (Bld) [#/Vol] 298 10*3/uL [facility] RBC (Bld) [#/Vol] 4.57 10*6/uL [facility] WBC (Bld) [#/Vol] 11.2 10*3/uL [facility] Basophils (Bld) [#/Vol] 0.07 x10*3/uL Normal 0.00-0.10 [facility] Comment on above: Performed By: #### 5 7021-8 ####ANDI Cotter ([id number])[facility] ([facility])[address] [place] [address] Basophils/100 WBC (Bld) 0.6 % Normal 0.0-2.0 [facility] Comment on above: Performed By: #### 5 7021-8 ####ANDI Cotter ([id number])[facility] ([facility])[address] [place] [address] Eosinophils (Bld) [#/Vol] 0.17 x10*3/uL Normal 0.00-0.70 [facility] Comment on above: Performed By: #### 5 7021-8 ####ANDI Cotter ([id number])[facility] ([facility])[address] [place] [address] Eosinophils/100 WBC (Bld) 1.5 % Normal 0.0-6.0 [facility] Comment on above: Performed By: #### 5 7021-8 ####ANDI Cotter ([id number])[facility] ([facility])[address] [place] [address] Erythrocyte distribution width (RBC) [Ratio] 14.1 % Normal 11.5-14.5 [facility] Comment on above: Performed By: #### 5 7021-8 ####ANDI Cotter ([id number])[facility] ([facility])[address] [place] [address] Hematocrit (Bld) [Volume fraction] 39.5 % Normal 36.0-46.0 [facility] Comment on above: Performed By: #### 5 7021-8 ####ANDI Cotter ([id number])[facility] ([facility])[address] [place] [address] Hemoglobin (Bld) [Mass/Vol] 13.1 g/dL Normal 12.0-16.0 [facility] Comment on above: Performed By: #### 5 7021-8 ####ANDI RENEEER L ([id number])[facility] ([facility])[address] [place] [address] Immature granulocytes (Bld) [#/Vol] 0.06 x10*3/uL Normal 0.00-0.70 [facility] Comment on above: Performed By: #### 5 7021-8 ####ANDI RAJPUTMOTZJYOIT L ([id number])[facility] ([facility])[address] [place] [address] Immature granulocytes/100 WBC (Bld) 0.5 % Normal 0.0-0.9 [facility] Comment on above: Result Comment: Debbie ture Granulocyte Count (IG) includes promyelocytes, myelocytes and metamyelocytes but does not include bands. Percent differential counts (%) should be interpreted in the context of the absolute cell counts (cells/UL). Performed By: #### 5 7021-8 ####ANDI CHAUDHARY L ([id number])[facility] ([facility])[address] [place] [address] Lymphocytes (Bld) [#/Vol] 1.66 x10*3/uL Normal 1.20-4.80 [facility] Comment on above: Performed By: #### 5 7021-8 ####ANDI CHAUDHARY L ([id number])[facility] ([facility])[address] [place] [address] Lymphocytes/100 WBC (Bld) 14.8 % Normal 13.0-44.0 [facility] Comment on above: Performed By: #### 5 7021-8 ####ANDI RAJPUTMOFIDELINA L ([id number])[facility] ([facility])[address] [place] [address] MCH (RBC) [Entitic mass] 28.7 pg Normal 26.0-34.0 [facility] Comment on above: Performed By: #### 5 7021-8 ####ANDI CHAUDHARY L ([id number])[facility] ([facility])[address] [place] [address] MCHC (RBC) [Mass/Vol] 33.2 g/dL Normal 32.0-36.0 [facility] Comment on above: Performed By: #### 5 7021-8 ####ANDI Cotter ([id number])[facility] ([facility])[address] [place] [address] MCV (RBC) [Entitic vol] 86 fL Normal 80-100 [facility] Comment on above: Performed By: #### 5 7021-8 ####ANDI Cotter ([id number])[facility] ([facility])[address] [place] [address] Monocytes (Bld) [#/Vol] 0.70 x10*3/uL Normal 0.10-1.00 [facility] Comment on above: Performed By: #### 5 7021-8 ####ANDI Cotter ([id number])[facility] ([facility])[address] [place] [address] Monocytes/100 WBC (Bld) 6.2 % Normal 2.0-10.0 [facility] Comment on above: Performed By: #### 5 7021-8 ####ANDI Cotter ([id number])[facility] ([facility])[address] [place] [address] Neutrophils (Bld) [#/Vol] 8.57 x10*3/uL High 1.20-7.70 [facility] Comment on above: Result Comment: Perc ent differential counts (%) should be interpreted in the context of the absolute cell counts (cells/uL). Performed By: #### 5 7021-8 ####ANDI Cotter ([id number])[facility] ([facility])[address] [place] [address] Neutrophils/100 WBC (Bld) 76.4 % Normal 40.0-80.0 [facility] Comment on above: Performed By: #### 5 7021-8 ####ANDI Cotter ([id number])[facility] ([facility])[address] [place] [address] Nucleated RBC/100 WBC (Bld) [Ratio] 0.0 /100 WBCs Normal 0.0-0.0 [facility] Comment on above: Performed By: #### 5 7021-8 ####ANDI RENEEER L ([id number])[facility] ([facility])[address] [place] [address] Platelets (Bld) [#/Vol] 298 x10*3/uL Normal 150-450 [facility] Comment on above: Performed By: #### 5 7021-8 ####ANDI RAJPUTMOEDELMIRAER L ([id number])[facility] ([facility])[address] [place] [address] RBC (Bld) [#/Vol] 4.57 x10*6/uL Normal 4.00-5.[address] [facility] Comment on above: Performed By: #### 5 7021-8 ####ANDI RAJPUTMOTZER L ([id number])[facility] ([facility])[address] [place] [address] WBC (Bld) [#/Vol] 11.2 x10*3/uL Normal 4.4-11.[address] [facility] Comment on above: Performed By: #### 5 7021-8 ####ANDI MADRIDTZER L ([id number])[facility] ([facility])[address] [place] [address] CT ABDOMEN PELVIS W IV CONTR Reny 11-10-2023 CT ABDOMEN PELVIS W IV CONTRAST Normal [facility] CT Abdomen and Pelvis W [...] Nancy Garrido. The study was interpreted at [facility] in [facility]. MACRO: none Signed by: Marie Fisher 11/10/2023 10:20 PM Dictation workstation: [id number] [facility] Interpreted By: Marie Fisher and Liller Gregory STUDY: CT ABDOMEN PELVIS W IV CONTRAST; 11/10/2023 8:52 pm INDICATION: Signs/Symptoms:pancreat itis, pseudocyst. 39-year-old female with history of pancreatitis, necrotizing pancreatitis and pseudocyst presents to ED for pseudocyst and epigastric pain. Patient had MRCP yesterday and started having intense epigastric pain today. COMPARISON: CT abdomen pelvis 07/05/2023, MRCP 11/09/2023 ACCESSION NUMBER(S): [id number] ORDERING CLINICIAN: KHURRAM STUART TECHNIQUE: CT of [...] abdomen pelvis 07/05/2023, MRCP 11/09/2023 ACCESSION NUMBER(S): [id number] ORDERING CLINICIAN: KHURRAM STUART TECHNIQUE: CT of [...] Nancy Garrido. The study was interpreted at [facility] in [facility]. MACRO: none Signed by: Marie Fisher 11/10/2023 10:20 PM Dictation workstation: [id number] [facility] Work Phone: Radiology Study observation (narrative) [facility] Work Phone: CT Abdomen and Pelvis W cont rast IVOrdered By: Marie Fisher on 11-10-2023 [facility] Work Phone: Comprehensive metabolic 2000 panelon 11-10-2023 Albumin BCP dye [Mass/Vol] 4.3 g/dL 3.4 - 5.0 g/dL [facility] ALP [Catalytic activity/Vol] 79 U/L 33 - 110 U/L [facility] ALT With P-5'-P [Catalytic activity/Vol] 72 U/L High 7 - 45 U/L [facility] Comment on above: Patients treated wit h Sulfasalazine may generate falsely decreased results for ALT. Anion gap [Moles/Vol] 19 mmol/L 10 - 2 0 mmol/L [facility] AST With P-5'-P [Catalytic activity/Vol] 51 U/L High 9 - 39 U/L [facility] Bilirubin [Mass/Vol] 0.4 mg/dL 0.0 - 1 .2 mg/dL [facility] Calcium [Mass/Vol] 9.7 mg/dL 8.6 - 10. 6 mg/dL [facility] Chloride [Moles/Vol] 101 mmol/L 98 - 10 7 mmol/L [facility] CO2 [Moles/Vol] 22 mmol/L 21 - 32 mmol/L [facility] Creatinine [Mass/Vol] 0.77 mg/dL 0.50 - 1.05 mg/dL [facility] eGFR - PINF [facility] Comment on above: Calculations of estuardo mated GFR are performed using the 2020 CKD-EPI Study Refit equation without the race variable for the IDMS-Traceable creatinine methods. https://jasn.asnjournals.org/content//ASN.576268 6295 Glucose [Mass/Vol] 171 mg/dL High 74 - 99 mg/dL [facility] Interpretation and review of laboratory results Abnormal [facility] Potassium [Moles/Vol] 3.7 mmol/L 3.5 - 5.3 mmol/L [facility] Protein [Mass/Vol] 7.5 g/dL 6.4 - 8.2 g/dL [facility] Sodium [Moles/Vol] 138 mmol/L 136 - 145 mmol/L [facility] Urea nitrogen [Mass/Vol] 18 mg/dL 6 - 23 mg/dL [facility] Albumin BCP dye [Mass/Vol] 4.3 g/dL Normal 3.4-5.0 [facility] Comment on above: Performed By: #### 2 4323-8 ####ANDI Cotter ([id number])[facility] ([facility])[address] [place] [address] ALP [Catalytic activity/Vol] 79 U/L Normal 33-110 [facility] Comment on above: Performed By: #### 2 4323-8 ####ANDI Cotter ([id number])[facility] ([facility])[address] [place] [address] ALT With P-5'-P [Catalytic activity/Vol] 72 U/L High 7-45 [facility] Comment on above: Result Comment: Evelyn ents treated with Sulfasalazine may generate falsely decreased results for ALT. Performed By: #### 2 4323-8 ####ANDI Cotter ([id number])[facility] ([facility])[address] [place] [address] Anion gap [Moles/Vol] 19 mmol/L Normal 10-20 [facility] Comment on above: Performed By: #### 2 4323-8 ####ANDI Cotter ([id number])[facility] ([facility])[address] [place] [address] AST With P-5'-P [Catalytic activity/Vol] 51 U/L High 9-39 [facility] Comment on above: Performed By: #### 2 4323-8 ####ANDI Cotter ([id number])[facility] ([facility])[address] [place] [address] Bilirubin [Mass/Vol] 0.4 mg/dL Normal 0.0-1.[address] [facility] Comment on above: Performed By: #### 2 4323-8 ####ANDI Cotter ([id number])[facility] ([facility])[address] [place] [address] Calcium [Mass/Vol] 9.7 mg/dL Normal 8.6-10.6 [facility] Comment on above: Performed By: #### 2 4323-8 ####ANDI Cotter ([id number])[facility] ([facility])[address] [place] [address] Chloride [Moles/Vol] 101 mmol/L Normal 98-[address] [facility] Comment on above: Performed By: #### 2 4323-8 ####ANDI Cotter ([id number])[facility] ([facility])[address] [place] [address] CO2 [Moles/Vol] 22 mmol/L Normal 21-32 [facility] Comment on above: Performed By: #### 2 4323-8 ####ANDI Cotter ([id number])[facility] ([facility])[address] [place] [address] Creatinine [Mass/Vol] 0.77 mg/dL Normal 0.50-1.05 [facility] Comment on above: Performed By: #### 2 4323-8 ####ANDI Cotter ([id number])[facility] ([facility])[address] [place] [address] GFR/1.73 sq M.predicted MDRD (S/P/Bld) [Vol rate/Area] mL/min/{1.73_m2} Normal >60 [facility] Comment on above: Result Comment: Calc ulations of estimated GFR are performed using the 2020 CKD-EPI Study Refit equation without the race variable for the IDMS-Traceable creatinine methods.https://jasn.asnjournals.org/content/early/ N.6864776911 Performed By: #### 2 4323-8 ####ANDI Cotter ([id number])[facility] ([facility])[address] [place] [address] Glucose [Mass/Vol] 171 mg/dL High 74-99 [facility] Comment on above: Performed By: #### 2 4323-8 ####ANDI Cotter ([id number])[facility] ([facility])[address] [place] [address] Potassium [Moles/Vol] 3.7 mmol/L Normal 3.5-5.3 [facility] Comment on above: Performed By: #### 2 4323-8 ####ANDI Cotter ([id number])[facility] ([facility])[address] [place] [address] Protein [Mass/Vol] 7.5 g/dL Normal 6.4-8.2 [facility] Comment on above: Performed By: #### 2 4323-8 ####ANDI Cotter ([id number])[facility] ([facility])[address] [place] [address] Sodium [Moles/Vol] 138 mmol/L Normal 136-145 [facility] Comment on above: Performed By: #### 2 4323-8 ####ANDI Cotter ([id number])[facility] ([facility])[address] [place] [address] Urea nitrogen [Mass/Vol] 18 mg/dL Normal 6-23 [facility] Comment on above: Performed By: #### 2 4323-8 ####ANDI Cotter ([id number])[facility] ([facility])[address] [place] [address] ECG 12 leadOrdered By: Zofia Young on 11-10-2023 Atrial Rate 117 BPM [facility] Work Phone: P [place] 33 degrees [facility] Work Phone: P Offset 208 [facility] Work Phone: P Onset 158 [facility] Work Phone: MD Interval 132 [facility] Work Phone: Q Onset 224 ms [facility] Work Phone: QRS Count 19 beats [facility] Work Phone: QRS Duration 78 ms [facility] Work Phone: QT Interval 324 [facility] Work Phone: QTC Calculation(Bazett) 451 [facility] Work Phone: QTC Fredericia 405 [facility] Work Phone: R [place] 34 degrees [facility] Work Phone: T [place] 32 degrees [facility] Work Phone: T Offset 386 [facility] Work Phone: Ventricular Rate 117 BPM [facility] Work Phone: [facility] Work Phone: ECG 12 leadon 11-10-2023 Sinus tachycardia Cannot rule out Anterior infarct , age undetermined Abnormal ECG When compared with ECG of 14-JUN-2023 21:04, Previous ECG has undetermined rhythm, needs review See ED provider note for full interpretation and clinical correlation Confirmed by Zofia Young ([id number]) on 11/10/2023 10:37:46 PM MUSE 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, 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 - 11/10/2023 Sinus tachycardia Cannot rule out Anterior infarct , age undetermined Abnormal ECG When compared with ECG of 14-JUN-2023 21:04, Previous ECG has undetermined rhythm, needs review See ED provider note for full interpretation and clinical correlation Confirmed by Zofia Young ([id number]) on 11/10/2023 10:37:46 PM [facility] Work Phone: ECG 12-LEADon 11-10-2023 ECG 12-LEAD Ventricular Rate 117 Atrial Rate 117 P-R Interval 132 QRS Duration 78 Q-T Interval 324 QTC Calculation(Bazett) 451 P [place] 33 R [place] 34 T [place] 32 QRS Count 19 Q Onset 224 P Onset 158 P Offset 208 T Offset 386 QTC Fredericia 405 Diagnosis Sinus tachycardia Cannot rule out Anterior infarct , age undetermined Abnormal ECG When compared with ECG of 14-JUN-2023 21:04, Previous ECG has undetermined rhythm, needs review See ED provider note for full interpretation and clinical correlation Confirmed by Zofia Young ([id number]) on 11/10/2023 10:37:46 PM Normal [facility] Gas panel (BldV)on 4 Anion gap 4 (BldV) [Moles/Vol] 12.0 mmol/L 10.0 - 25.0 mmol/L [facility] Base excess Calc (BldV) [Moles/Vol] 2.8 mmol/L -2.0 - 3.0 mmol/L [facility] Calcium.ionized (BldV) [Moles/Vol] 1.19 mmol/L 1.10 - 1.33 mmol/L [facility] Chloride (BldV) [Moles/Vol] 102 mmol/L 98 - 107 mmol/L [facility] CO2 (BldV) [Partial pressure] 40 mm[Hg] Low [facility] Glucose [Mass/Vol] 187 mg/dL High 74 - 99 mg/dL [facility] HCO3 (Bld) [Moles/Vol] 27.2 mmol/L High 22.0 - 26.0 mmol/L [facility] Hematocrit Est (Bld) [Volume fraction] 39.0 % 36.0 - 46.0 % [facility] Hemoglobin (Bld) [Mass/Vol] 13.1 g/dL 12.0 - 16.0 g/dL [facility] Interpretation and review of laboratory results Abnormal [facility] Lactate (BldV) [Moles/Vol] 2.2 mmol/L High 0.4 - 2.0 mmol/L [facility] Oxygen (BldV) [Partial pressure] 37 mm[Hg] [facility] Oxygen saturation in Venous blood 49 % 45 - 75 % [facility] Oxyhemoglobin (BldV) [Mass fraction] 48.5 % 45.0 - 75.0 % [facility] pH (BldV) 7.44 [pH] High 7.33 - 7.43 pH [facility] Potassium (BldV) [Moles/Vol] 3.8 mmol/L 3.5 - 5.3 mmol/L [facility] Sodium (BldV) [Moles/Vol] 137 mmol/L 136 - 145 mmol/L [facility] Test Comment DOROTHEA MATY- [id number] [facility] Anion gap 4 (BldV) [Moles/Vol] 12.0 mmol/L Normal 10.0-25.0 [facility] Comment on above: Performed By: #### 2 4339-4 ####ANDI Cotter ([id number])[facility] ([facility])[address] [place] [address] Base excess Calc (BldV) [Moles/Vol] 2.8 mmol/L Normal -2.0-3.0 [facility] Comment on above: Performed By: #### 2 4339-4 ####ANDI Cotter ([id number])[facility] ([facility])[address] [place] [address] Calcium.ionized (BldV) [Moles/Vol] 1.19 mmol/L Normal 1.10-1.33 [facility] Comment on above: Performed By: #### 2 4339-4 ####ANDI Cotter ([id number])[facility] ([facility])[address] [place] [address] Chloride (BldV) [Moles/Vol] 102 mmol/L Normal 98-107 [facility] Comment on above: Performed By: #### 2 4339-4 ####ANDI Cotter ([id number])[facility] ([facility])[address] [place] [address] CO2 (BldV) [Partial pressure] 40 mm Hg Low 41-51 [facility] Comment on above: Performed By: #### 2 4339-4 ####ANDI Cotter ([id number])[facility] ([facility])[address] [place] [address] Glucose [Mass/Vol] 187 mg/dL High 74-99 [facility] Comment on above: Performed By: #### 2 4339-4 ####ANDI Cotter ([id number])[facility] ([facility])[address] [place] [address] HCO3 (Bld) [Moles/Vol] 27.2 mmol/L High 22.0-26.0 [facility] Comment on above: Performed By: #### 2 4339-4 ####ANDI Cotter ([id number])[facility] ([facility])[address] [place] [address] Hematocrit Est (Bld) [Volume fraction] 39.0 % Normal 36.0-46.0 [facility] Comment on above: Performed By: #### 2 4339-4 ####ANDI Cotter ([id number])[facility] ([facility])[address] [place] [address] Hemoglobin (Bld) [Mass/Vol] 13.1 g/dL Normal 12.0-16.0 [facility] Comment on above: Performed By: #### 2 4339-4 ####ANDI Cotter ([id number])[facility] ([facility])[address] [place] [address] Lactate (BldV) [Moles/Vol] 2.2 mmol/L High 0.4-2.0 [facility] Comment on above: Performed By: #### 2 4339-4 ####ANDI Cotter ([id number])[facility] ([facility])[address] [place] [address] Oxygen (BldV) [Partial pressure] 37 mm Hg Normal 35-45 [facility] Comment on above: Performed By: #### 2 4339-4 ####ANDI Cotter ([id number])[facility] ([facility])[address] [place] [address] Oxygen saturation in Venous blood 49 % Normal 45-75 [facility] Comment on above: Performed By: #### 2 4339-4 ####ANDI Cotter ([id number])[facility] ([facility])[address] [place] [address] Oxyhemoglobin (BldV) [Mass fraction] 48.5 % Normal 45.0-75.0 [facility] Comment on above: Performed By: #### 2 4339-4 ####ANDI Cotter ([id number])[facility] ([facility])[address] [place] [address] pH (BldV) 7.44 [pH] High 7.33-7.43 [facility] Comment on above: Performed By: #### 2 4339-4 ####ANDI Cotter ([id number])[facility] ([facility])[address] [place] [address] Potassium (BldV) [Moles/Vol] 3.8 mmol/L Normal 3.5-5.3 [facility] Comment on above: Performed By: #### 2 9729-4 ####ANDI Cotter ([id number])[facility] ([facility])[address] [place] [address] Sodium (BldV) [Moles/Vol] 137 mmol/L Normal 136-145 [facility] Comment on above: Performed By: #### 2 4339-4 ####ANDI Cotter ([id number])[facility] ([facility])[address] [place] [address] TEST COMMENT DOROTHEA RUTLEDGE- Normal [facility] Comment on above: Performed By: #### 2 4339-4 ####ANDI Cotter ([id number])[facility] ([facility])[address] [place] [address] Glucose Test strip manual (B ld) [Mass/Vol]on 11-10-2023 Glucose [Mass/Vol] 165 mg/dL High 74 - 99 mg/dL [facility] Interpretation and review of laboratory results Abnormal [facility] Glucose [Mass/Vol] 165 mg/dL High 74-99 [facility] Comment on above: Performed By: #### 2 341-6 ####ANDI Cotter ([id number])[facility] ([facility])[address] [place] [address] HCG ( test) Ql (U)O rdered By: Anneliese Mckenzie on 11-10-2023 Interpretation and review of laboratory results Normal [facility] Preg Test, Ur Negative Negative [facility] HbA1c (Bld) [Mass fraction]o n 11-10-2023 Average glucose Estimated from glycated hemoglobin (Bld) [Mass/Vol] 214 mg/dL Not Established [facility] Interpretation and review of laboratory results Abnormal [facility] Diagnosis of Diabetes-Adults Non-Diabetic: < or = 5.6% Increased risk for developing diabetes: 5.7-6.4% Diagnostic of diabetes: > or = 6.5% Monitoring of Diabetes Age (y).................... ... Therapeutic Goal (%) Adults: >18.................... .....<7.0 Pediatrics: 13-18.................. .<7.5 Pediatrics: 7-12................... .<8.0 Pediatrics: 0-6.................... . 7.5-8.5 [place] [employer]. Diabetes Care 33(S1)Sep 2009 [facility] Average glucose Estimated from glycated hemoglobin (Bld) [Mass/Vol] 214 mg/dL Normal Not Established [facility] Comment on above: Order Comment: Diagn osis of Lpdegdbl-YamqqaYjs-Nfpbhrdh: < or = 5.6%Increased risk for developing diabetes: 5.7-6.4%Diagnostic of diabetes: > or = 6.5%Monitoring of DiabetesAge (y)....................... Therapeutic Goal (%)Adults: >18.........................<7.0Pediatrics: 13-18...................<7.5Pediatrics: 7-12....................<8.0Pediatrics: 0-6..................... 7.5-8.5[facility] Diabetes Association. Diabetes Care 33(S1)Sep 2009 Performed By: #### 4 548-4 ####ANDI Cotter ([id number])[facility] ([facility])[address] [place] [address] Hemoglobin A1con 11-10-2023 HbA1c (Bld) [Mass fraction] 9.1 % High see below [facility] Hemoglobin A1c/Hemoglobin.to fermín 11-10-2023 HbA1c (Bld) [Mass fraction] 9.1 % High see below [facility] Comment on above: Order Comment: Diagn osis of Pqpvycip-AoaswaCot-Vbeldxgj: < or = 5.6%Increased risk for developing diabetes: 5.7-6.4%Diagnostic of diabetes: > or = 6.5%Monitoring of DiabetesAge (y)....................... Therapeutic Goal (%)Adults: >18.........................<7.0Pediatrics: 13-18...................<7.5Pediatrics: 7-12....................<8.0Pediatrics: 0-6..................... 7.5-8.5[facility] Diabetes Association. Diabetes Care 33(S1), Sep 2009 Performed By: #### 4 548-4 ####ANDI Cotter ([id number])[facility] ([facility])[address] [place] [address] Lactateon 11-10-2023 Lactate (BldV) [Moles/Vol] 2.0 mmol/L Normal 0.4-2.0 [facility] Comment on above: Performed By: #### 2 519-7 ####ANDI Cotter ([id number])[facility] ([facility])[address] [place] [address] Lactate (BldV) [Moles/Vol]Or dered By: Yamilex Leung on 11-10-2023 Interpretation and review of laboratory results Normal [facility] Lipaseon 11-10-2023 Lipase [Catalytic activity/Vol] 104 U/L High 9 - 82 U/L [facility] Lipase [Catalytic activity/V ol]on 11-10-2023 Interpretation and review of laboratory results Abnormal [facility] Venipuncture immediately after or during the administration of Metamizole may lead to falsely low results. Testing should be performed immediately prior to Metamizole dosing. [facility] Triacylglycerol lipaseon Lipase [Catalytic activity/Vol] 104 U/L High 9-82 [facility] Comment on above: Order Comment: Venip uncture immediately after or during the administration of Metamizole may lead to falsely low results. Testing should be performed immediately prior to Metamizole dosing. Performed By: #### 3 040-3 ####ANDI Cotter ([id number])[facility] ([facility])[address] [place] [address] MR Pancreas WO and W contras t [...] Shelli Paris 11/09/2023 3:51 PM Dictation workstation: [id number] [facility] Interpreted By: Shelli Paris, STUDY: MRCP PANCREAS W AND WO IV CONTRAST; 11/09/2023 12:20 pm INDICATION: Signs/Symptoms:severe pancreatitis and cyst. evaluate for ductal problems and size of size. COMPARISON: CT dated 07/05/2023 ACCESSION NUMBER(S): [id number] ORDERING CLINICIAN: COLTON HICKS TECHNIQUE: Multiplanar multisequence [...] size. COMPARISON: CT dated 07/05/2023 ACCESSION NUMBER(S): [id number] ORDERING CLINICIAN: COLTON HICKS TECHNIQUE: Multiplanar multisequence [...] Shelli Paris 11/09/2023 3:51 PM Dictation workstation: [id number] [facility] Work Phone: Radiology Study observation (narrative) [facility] Work Phone: MR Pancreas WO and W contras t IVOrdered By: Shelli Paris on 11-09-2023 [facility] Work Phone: MRCP PANCREAS W AND WO IV CO NTRASTon 11-09-2023 MRCP PANCREAS W AND WO IV CONTRAST Interpreted By: Shelli Paris, STUDY: MRCP PANCREAS W AND WO IV CONTRAST; 11/09/2023 12:20 pm INDICATION: Signs/Symptoms:severe pancreatitis and cyst. evaluate for ductal problems and size of size. COMPARISON: CT dated 07/05/2023 ACCESSION NUMBER(S): [id number] ORDERING CLINICIAN: COLTON HICKS TECHNIQUE: Multiplanar multisequence [...] Shelli Paris 11/09/2023 3:51 PM Dictation workstation: [id number] [facility] [place] RF Unspecified body region V iews for [...] Poncho Ruby 10/19/2023 2:35 PM Dictation workstation: [id number] Interpreted By: Poncho Sprague, STUDY: [...] radiograph during port placement 08/26/2023 ACCESSION NUMBER(S): [id number] ORDERING CLINICIAN: SHANTELL ROSSI TECHNIQUE: ATTENDING MACHINE OR MACHINERY MECHANIC: Poncho Ruby M.D. TECHNICAL DESCRIPTION/FINDINGS: The procedure, including all risks, benefits and alternatives were explained to the patient in detail. All questions were answered and written informed consent was obtained. The patient was positioned supine on the fluoroscopy table. A time-out was performed. The right neck and anterosuperior chest overlying the indwelling MediPort were prepped and draped in usual sterile fashion. A firesetter fluoroscopic image was obtained demonstrating grossly unchanged [...] radiograph during port placement 08/26/2023 ACCESSION NUMBER(S): [id number] ORDERING CLINICIAN: SHANTELL ROSSI TECHNIQUE: ATTENDING MACHINE OR MACHINERY MECHANIC: Poncho Ruby M.D. TECHNICAL DESCRIPTION/FINDINGS: The procedure, including all risks, benefits and alternatives were explained to the patient in detail. All questions were answered and written informed consent was obtained. The patient was positioned supine on the fluoroscopy table. A time-out was performed. The right neck and anterosuperior chest overlying the indwelling MediPort were prepped and draped in usual sterile fashion. A firesetter fluoroscopic image was obtained demonstrating grossly unchanged [...] Poncho Ruby 10/19/2023 2:35 PM Dictation workstation: [id number] [facility] Work Phone: [facility] Work Phone: CPEPon 10-18-2023 C-Peptide 2.99 ng/mL Normal 0.81-3.85 [facility] ([place]) Comment on above: Performed By: #### A DIFF, ANEU, CMP, MG, GFR, LD, CRP, CBC, ESR #### [address] [place], [place] [address] IR CVC CHECKon 10-18-2023 IR CVC CHECK Normal [facility] RF Unspecified body region V iews for central venous catheter placement checkon 10-18-2023 Radiology Study observation (narrative) [facility] Work Phone: .Auto Diffon 10-17-2023 Basophil, Absolute 0.1 10 3/mcL Normal 0.0-0.2 [facility] ([place]) Comment on above: Performed By: #### A DIFF, ANEU, CMP, MG, GFR, LD, CRP, CBC, ESR #### [address] [place], [place] [address] Basophils/100 WBC (Bld) 1.1 % Normal 0.0-2.5 [facility] ([place]) Comment on above: Performed By: #### A DIFF, ANEU, CMP, MG, GFR, LD, CRP, CBC, ESR #### [address] [address] Eosinophil, Absolute 0.1 10 3/mcL Normal 0.0-0.4 [facility] ([place]) Comment on above: Performed By: #### A DIFF, ANEU, CMP, MG, GFR, LD, CRP, CBC, ESR #### [address] [address] Eosinophils/100 WBC (Bld) 1.0 % Normal 0.0-7.0 [facility] ([place]) Comment on above: Performed By: #### A DIFF, ANEU, CMP, MG, GFR, LD, CRP, CBC, ESR #### [address] [address] Lymphocyte, Absolute 1.7 10 3/mcL Normal 0.8-3.9 [facility] ([place]) Comment on above: Performed By: #### A DIFF, ANEU, CMP, MG, GFR, LD, CRP, CBC, ESR #### [address] [address] Lymphocytes/100 WBC (Bld) 16.8 % Normal 10.0-50.0 [facility] ([place]) Comment on above: Performed By: #### A DIFF, ANEU, CMP, MG, GFR, LD, CRP, CBC, ESR #### [address] [address] Monocyte, Absolute 0.6 10 3/mcL Normal 0.2-1.0 [facility] ([place]) Comment on above: Performed By: #### A DIFF, ANEU, CMP, MG, GFR, LD, CRP, CBC, ESR #### [address] [address] Monocytes/100 WBC (Bld) 5.7 % Normal 1.7-13.0 [facility] ([place]) Comment on above: Performed By: #### A DIFF, ANEU, CMP, MG, GFR, LD, CRP, CBC, ESR #### [address] [address] Neutrophils/100 WBC (Bld) 75.4 % Normal 37.0-80.0 [facility] ([place]) Comment on above: Performed By: #### A DIFF, ANEU, CMP, MG, GFR, LD, CRP, CBC, ESR #### Sean [address] [address] .GFRon 10-17-2023 GFR Non- 49 ml/min/1.73sqm Normal [facility] ([place]) Comment on above: Result Comment: GFR Population [...] By: #### U A, PREGU #### [address] [place], [place] [address] GFR 60 ml/min/1.73sqm Normal [facility] ([place]) Comment on above: Result Comment: GFR Population [...] By: #### U A, PREGU #### [address] [place], [place] [address] .MDWon 10-17-2023 Monocyte Distribution Width 16.89 Normal 0.00-20.00 [facility] ([place]) Comment on above: Result Comment: For ED adult patients suspected of sepsis, MDW<=20.0 does not rule out sepsis or risk of sepsis Performed By: #### A DIFF, ANEU, CMP, MG, GFR, LD, CRP, CBC, ESR #### [address] [address] .NEUABSon 10-17-2023 Neutrophil, Absolute 7.6 10 3/mcL High 2.9-6.2 [facility] ([place]) Comment on above: Performed By: #### A DIFF, ANEU, CMP, MG, GFR, LD, CRP, CBC, ESR #### [place] [address] .Urinalysis Microscopic (AO) on 10-17-2023 UA RBC 0-5 Abnormal None Seen [facility] ([place]) Comment on above: Performed By: #### A DIFF, ANEU, CMP, MG, GFR, LD, CRP, CBC, ESR #### [place] [address] UA Squam Epithelial 0-5 Abnormal None [facility]en [facility] ([place]) Comment on above: Performed By: #### A DIFF, ANEU, CMP, MG, GFR, LD, CRP, CBC, ESR #### [address] [address] UA WBC None Seen Normal None Seen [facility] ([place]) Comment on above: Performed By: #### A DIFF, ANEU, CMP, MG, GFR, LD, CRP, CBC, ESR #### [address] [address] BMPon 10-17-2023 BUN/Creatinine Ratio 14 ratio Normal 7-27 [facility]) Comment on above: Order Comment: [place] in [place] notified of specimen hemolyzed for recollect 10/17/2023 16:22:32 EST called by kl Performed By: #### U A, PREGU #### [address] [place], [place] [address] Calcium [Mass/Vol] 9.0 mg/dL Normal 8.4-10.2 [facility] ([place]) Comment on above: Order Comment: [place] in [place] notified of specimen hemolyzed for recollect 10/17/2023 16:22:32 EST called by kl Performed By: #### U A, PREGU #### Sean [address] [place], [place] [address] Chloride [Moles/Vol] 97 mmol/L Low 98-107 [facility] ([place]) Comment on above: Order Comment: louis in er notified of specimen hemolyzed for recollect 10/17/2023 16:22:32 EST called by kl Performed By: #### U A, PREGU #### Sean [address] [place], [place] [address] CO2 [Moles/Vol] 22 mmol/L Normal 22-29 [facility] ([place]) Comment on above: Order Comment: louis in er notified of specimen hemolyzed for recollect 10/17/2023 16:22:32 EST called by kl Performed By: #### U A, PREGU #### Sean [address] [place], [place] [address] Creatinine [Mass/Vol] 1.17 mg/dL High 0.55-1.02 [facility] ([place]) Comment on above: Order Comment: louis in er notified of specimen hemolyzed for recollect 10/17/2023 16:22:32 EST called by kl Performed By: #### U A, PREGU #### Sean Venus [address] [place], [place] [address] Electrolyte Balance 15.0 mEq/L Normal 4.0-15.0 [facility] ([place]) Comment on above: Order Comment: louis in er notified of specimen hemolyzed for recollect 10/17/2023 16:22:32 EST called by kl Performed By: #### U A, PREGU #### Woolwine Venus [address] [place], [place] [address] Glucose [Mass/Vol] 491 mg/dL Critically abnormal 70-105 [facility] ([place]) Comment on above: Order Comment: louis in er notified of specimen hemolyzed for recollect 10/17/2023 16:22:32 EST called by kl Performed By: #### U A, PREGU #### Sean [address] [place], [place] [address] Potassium [Moles/Vol] 4.4 mmol/L Normal 3.5-5.1 [facility] ([place]) Comment on above: Order Comment: louis in er notified of specimen hemolyzed for recollect 10/17/2023 16:22:32 EST called by kl Performed By: #### U A, PREGU #### Sean Venus [address] [place], [place] [address] Sodium [Moles/Vol] 134 mmol/L Low 136-145 [facility] ([place]) Comment on above: Order Comment: louis in er notified of specimen hemolyzed for recollect 10/17/2023 16:22:32 EST called by kl Performed By: #### U A, PREGU #### Sean [address] [place], [place] [address] Urea nitrogen [Mass/Vol] 16 mg/dL Normal 7-18 [facility] ([place]) Comment on above: Order Comment: louis in er notified of specimen hemolyzed for recollect 10/17/2023 16:22:32 EST called by kl Performed By: #### U A, PREGU #### Sean [address] [place], [place] [address] CBCon 10-17-2023 Erythrocyte distribution width (RBC) [Ratio] 16.5 % High 11.5-14.5 [facility] ([place]) Comment on above: Performed By: #### A DIFF, ANEU, CMP, MG, GFR, LD, CRP, CBC, ESR #### Sean [address] [address] Hematocrit (Bld) [Volume fraction] 41.6 % Normal 37.0-47.0 [facility] ([place]) Comment on above: Performed By: #### A DIFF, ANEU, CMP, MG, GFR, LD, CRP, CBC, ESR #### [address] [address] Hgb 13.9 G/dL Normal 12.0-16.0 [facility] ([place]) Comment on above: Performed By: #### A DIFF, ANEU, CMP, MG, GFR, LD, CRP, CBC, ESR #### [address] [address] MCH (RBC) [Entitic mass] 29.7 pg Normal 27.0-31.2 [facility] ([place]) Comment on above: Performed By: #### A DIFF, ANEU, CMP, MG, GFR, LD, CRP, CBC, ESR #### [address] [address] MCHC 33.3 G/dL Normal 33.0-37.0 [facility] ([place]) Comment on above: Performed By: #### A DIFF, ANEU, CMP, MG, GFR, LD, CRP, CBC, ESR #### [address] [address] MCV (RBC) [Entitic vol] 89.2 fL Normal 80.0-94.0 [facility] ([place]) Comment on above: Performed By: #### A DIFF, ANEU, CMP, MG, GFR, LD, CRP, CBC, ESR #### [address] [address] Platelet 381 10 3/mcL Normal 130-400 [facility] ([place]) Comment on above: Performed By: #### A DIFF, ANEU, CMP, MG, GFR, LD, CRP, CBC, ESR #### [address] [address] Platelet mean volume (Bld) [Entitic vol] 7.0 fL Low 7.4-10.4 [facility] ([place]) Comment on above: Performed By: #### A DIFF, ANEU, CMP, MG, GFR, LD, CRP, CBC, ESR #### [address] [address] RBC 4.67 10 6/mcL Normal 4.20-5.40 [facility]) Comment on above: Performed By: #### A DIFF, ANEU, CMP, MG, GFR, LD, CRP, CBC, ESR #### [address] [address] WBC 10.1 10 3/mcL Normal 4.6-10.8 [facility]) Comment on above: Performed By: #### A DIFF, ANEU, CMP, MG, GFR, LD, CRP, CBC, ESR #### [address] [address] HFPon 10-17-2023 Bili Indirect 0.2 mg/dL Normal [facility]) Comment on above: Performed By: #### A DIFF, ANEU, CMP, MG, GFR, LD, CRP, CBC, ESR #### [address] [address] Albumin Level 4.1 G/dL Normal 3.5-5.0 [facility]) Comment on above: Performed By: #### A DIFF, ANEU, CMP, MG, GFR, LD, CRP, CBC, ESR #### [address] [address] Albumin/Globulin [Mass ratio] 1.0 {ratio} Low 1.1-2.5 [facility]) Comment on above: Performed By: #### A DIFF, ANEU, CMP, MG, GFR, LD, CRP, CBC, ESR #### [address] [address] ALP [Catalytic activity/Vol] 108 U/L Normal 40-135 [facility]) Comment on above: Performed By: #### A DIFF, ANEU, CMP, MG, GFR, LD, CRP, CBC, ESR #### [address] [address] ALT [Catalytic activity/Vol] 57 U/L Normal 14-59 [facility]) Comment on above: Performed By: #### A DIFF, ANEU, CMP, MG, GFR, LD, CRP, CBC, ESR #### [address] [address] AST [Catalytic activity/Vol] 19 U/L Normal 10-40 [facility] ([place]) Comment on above: Performed By: #### A DIFF, ANEU, CMP, MG, GFR, LD, CRP, CBC, ESR #### [address] [address] Bili Direct 0.1 mg/dL Normal 0.0-0.2 [facility] ([place]) Comment on above: Result Comment: Use of this assay is not recommended for patients undergoing treatment with eltrombopag due to the potential for falsely elevated results. Performed By: #### A DIFF, ANEU, CMP, MG, GFR, LD, CRP, CBC, ESR #### [address] [address] Bili Total 0.3 mg/dL Normal 0.2-1.0 [facility] ([place]) Comment on above: Result Comment: Use of this assay is not recommended for patients undergoing treatment with eltrombopag due to the potential for falsely elevated results. Performed By: #### A DIFF, ANEU, CMP, MG, GFR, LD, CRP, CBC, ESR #### [address] [address] Globulin 4.0 G/dL Normal [facility] ([place]) Comment on above: Performed By: #### A DIFF, ANEU, CMP, MG, GFR, LD, CRP, CBC, ESR #### [address] [address] Total Protein 8.1 G/dL Normal 6.4-8.2 [facility] ([place]) Comment on above: Performed By: #### A DIFF, ANEU, CMP, MG, GFR, LD, CRP, CBC, ESR #### [address] [address] LABORATORYOrdered By: Maureen Leung on 10-17-2023 Blood Glucose Testing Reason Symptoms of hyperglycemia (10/17/23 5:28 PM) [facility] Glucose [Mass/Vol] 491 mg/dL Invalid Interpretation Code 70 - 110 mg/dL [facility] LABORATORYOrdered By: SYSTEM SYSTEM on 10-17-2023 Albumin [...] Comment on above: Interpretive Data: Rufina cochran [employer] (CHEST, 1991, 102:312S-25S) recommended therapeutic range for oral anticoagulant therapy is: LOW RISK: Prophylaxis of venous thrombosis INR: 2.0-3.0 Treatment of pulmonary embolism 2.0-3.0 Prevention of systemic embolism 2.0-3.0 HIGH RISK: Mechanical prosthetic valves 2.5-3.5 PT Coag (PPP) [Time] 12.6 s Normal 9.0 - 1 4.2 seconds AO [employer] SS LIPon 10-17-2023 Lipase Level 57 U/L Normal 16-77 [facility] ([place]) Comment on above: Performed By: #### A DIFF, ANEU, CMP, MG, GFR, LD, CRP, CBC, ESR #### [address] [address] PREGUon 10-17-2023 HCG ( test) Ql (U) Negative Normal [facility]) Comment on above: Performed By: #### A DIFF, ANEU, CMP, MG, GFR, LD, CRP, CBC, ESR #### [address] [address] test (u) int Not detected Invalid Interpretation Code [facility] ([place]) Comment on above: Performed By: #### A DIFF, ANEU, CMP, MG, GFR, LD, CRP, CBC, ESR #### [address] [place], [place] [address] PROon 10-17-2023 PT Coag (PPP) [Time] 12.6 s Normal 9.0-14.2 [facility]) Comment on above: Performed By: #### U A, PREGU #### [facility] [address] [place], [place] [address] PT International Ratio 1.1 Normal [facility] ([place]) Comment on above: Result Comment: [employer] (CHEST, 1992, 102:312S-25S) recommended therapeutic range for oral anticoagulant therapy is: LOW RISK: Prophylaxis of venous thrombosis INR: 2.0-3.0 Treatment of pulmonary embolism 2.0-3.0 Prevention of systemic embolism 2.0-3.0 HIGH RISK: Mechanical prosthetic valves 2.5-3.5 Performed By: #### U A, PREGU #### [facility] [address] [place], [place] [address] UAon 10-17-2023 Color (U) Yellow Normal [facility] ([place]) Comment on above: Performed By: #### A DIFF, ANEU, CMP, MG, GFR, LD, CRP, CBC, ESR #### [address] [address] Glucose (U) [Mass/Vol] 500 mg/dL Abnormal Negative [facility] ([place]) Comment on above: Performed By: #### A DIFF, ANEU, CMP, MG, GFR, LD, CRP, CBC, ESR #### [address] [address] Ketones Ql (U) Negative Normal Negative [facility] ([place]) Comment on above: Performed By: #### A DIFF, ANEU, CMP, MG, GFR, LD, CRP, CBC, ESR #### [address] [address] UA Appear Clear Normal Clear [facility] ([place]) Comment on above: Performed By: #### A DIFF, ANEU, CMP, MG, GFR, LD, CRP, CBC, ESR #### [address] [address] UA Blood Small Abnormal Negative [facility] ([place]) Comment on above: Performed By: #### A DIFF, ANEU, CMP, MG, GFR, LD, CRP, CBC, ESR #### [address] [address] UA Leuk Est Negative Normal Negative [facility] ([place]) Comment on above: Performed By: #### A DIFF, ANEU, CMP, MG, GFR, LD, CRP, CBC, ESR #### [address] [address] UA Nitrite Negative Normal Negative [facility] ([place]) Comment on above: Performed By: #### A DIFF, ANEU, CMP, MG, GFR, LD, CRP, CBC, ESR #### [address] [address] UA pH 6.5 Normal 5.0 - 8.0 [facility] ([place]) Comment on above: Performed By: #### A DIFF, ANEU, CMP, MG, GFR, LD, CRP, CBC, ESR #### [address] [address] UA Protein Negative Normal Negative [facility] ([place]) Comment on above: Performed By: #### A DIFF, ANEU, CMP, MG, GFR, LD, CRP, CBC, ESR #### [address] [address] UA Spec Grav 1.025 Normal 1.015-1.025 [facility] ([place]) Comment on above: Performed By: #### A DIFF, ANEU, CMP, MG, GFR, LD, CRP, CBC, ESR #### [address] [address] UA Specimen Type Clean Catch Normal [facility] ([place]) Comment on above: Performed By: #### A DIFF, ANEU, CMP, MG, GFR, LD, CRP, CBC, ESR #### [address] [address] UA Urobilinogen 0.2 E.U./dL Normal 0.2-1.0 [facility] ([place]) Comment on above: Performed By: #### A DIFF, ANEU, CMP, MG, GFR, LD, CRP, CBC, ESR #### [address] [address] Urobilinogen (U) [Mass/Vol] Negative Normal Negative [facility] ([place]) Comment on above: Performed By: #### A DIFF, ANEU, CMP, MG, GFR, LD, CRP, CBC, ESR #### [address] [address] Guidance for placement of CV catheter with port in Cheston 08-26-2023 1. Uncomplicated placement of a right infraclavicular single-lumen Mediport- 8-Cook Islander catheter tip residing at the cavoatrial junction. 2. CT power-injection compatible Mediport. 3. MRI-compatible Mediport. Optimal functioning device and ready for utilization. I was present for and/or performed the critical portions of the procedure and immediately available throughout the entire procedure. I personally reviewed the image(s) / study and resident interpretation. I agree with the findings as stated. Performed and dictated at [facility]. MACRO: None Signed by: Christophe Garcia 08/26/2023 1:39 PM Dictation workstation: [id number] [facility] MMODAL Interpreted By: Christophe Garcia, STUDY: IR CVC PORT PLACEMENT; 08/26/2023 1:08 pm INDICATION: Signs/Symptoms:Port implant poor IV access, can receive opioid sparing infusion once every 2 weeks. COMPARISON: None. ACCESSION NUMBER(S): [id number] ORDERING CLINICIAN: TIANNA RASMUSSEN TECHNIQUE: INTERVENTIONALIST(S): Christophe [...] PACS. After confirmation of location, a 018 Stanford-Mandril guidewire was inserted to secure location. The guidewire was advanced into the inferior vena cava utilizing intermittent fluoroscopy. The micro-access needle was removed over the guidewire. Utilizing a 5-on-4 coaxial dilator sheath system, upsize to a 035 3-J guidewire was performed. Subsequent access tract dilation was performed to an eventual 8.5-[place]er peel-away sheath dilator system. Following Lidocaine 1% local anesthesia, a superolateral Mediport pocket was created in the subcutaneous infraclavicular chest wall. The Mediport pocket was irrigated with normal saline and prophylactic antibiotics. A subcutaneous tract was then created from the Mediport pocket to the venous access site. The 8-Cook Islander port catheter was introduced maintaining continuity from [...] every 2 weeks. COMPARISON: None. ACCESSION NUMBER(S): [id number] ORDERING CLINICIAN: TIANNA RASMUSSEN TECHNIQUE: INTERVENTIONALIST(S): Christophe [...] PACS. After confirmation of location, a 018 Stanford-Mandril guidewire was inserted to secure location. The guidewire was advanced into the inferior vena cava utilizing intermittent fluoroscopy. The micro-access needle was removed over the guidewire. Utilizing a 5-on-4 coaxial dilator sheath system, upsize to a 035 3-J guidewire was performed. Subsequent access tract dilation was performed to an eventual 8.5-[place]er peel-away sheath dilator system. Following Lidocaine 1% local anesthesia, a superolateral Mediport pocket was created in the subcutaneous infraclavicular chest wall. The Mediport pocket was irrigated with normal saline and prophylactic antibiotics. A subcutaneous tract was then created from the Mediport pocket to the venous access site. The 8-[place]er port catheter was introduced maintaining continuity from [...] placement of a right infraclavicular single-lumen Mediport- 8-[place] Islander catheter tip residing at the cavoatrial junction. 2. CT power-injection compatible Mediport. 3. MRI-compatible Mediport. Optimal functioning device and ready for utilization. I was present for and/or performed the critical portions of the procedure and immediately available throughout the entire procedure. I personally reviewed the image(s) / study and resident interpretation. I agree with the findings as stated. Performed and dictated at [facility] (more content not included)... [facility] Work Phone: Radiology Study observation (narrative) [facility] Work Phone: Guidance for placement of CV catheter with port in ChestOrdered By: Christophe Garcia on 08-26-2023 [facility] Work Phone: IR CVC PORT PLACEMENTon 12-0 IR CVC PORT PLACEMENT Normal [facility] No Panel Informationon 08-09 Culture Urine <10,000 cfu/ml. No Significant growth. Sensitivity not indicated. [facility] CBC panel Auto (Bld)on 08-03 Erythrocyte distribution width (RBC) [Ratio] 13.7 % Normal 11.5-14.5 [facility] Comment on above: Performed By: #### 5 8410-2 ####ANDI Cotter ([id number])[facility] ([facility])[address] [place] [address] Hematocrit (Bld) [Volume fraction] 41.7 % Normal 36.0-46.0 [facility] Comment on above: Performed By: #### 5 8410-2 ####ANDI Cotter ([id number])[facility] ([facility])[address] [place] [address] Hemoglobin (Bld) [Mass/Vol] 13.0 g/dL Normal 12.0-16.0 [facility] Comment on above: Performed By: #### 5 8410-2 ####ANDI Cotter ([id number])[facility] ([facility])[address] [place] [address] MCH (RBC) [Entitic mass] 29.7 pg Normal 26.0-34.0 [facility] Comment on above: Performed By: #### 5 8410-2 ####ANDI Cotter ([id number])[facility] ([facility])[address] [place] [address] MCHC (RBC) [Mass/Vol] 31.2 g/dL Low 32.0-36.0 [facility] Comment on above: Performed By: #### 5 8410-2 ####ANDI Cotter ([id number])[facility] ([facility])[id number] [place] [address] MCV (RBC) [Entitic vol] 95 fL Normal 80-100 [facility] Comment on above: Performed By: #### 5 8410-2 ####ANDI Cotter ([id number])[facility] ([facility])[address] [place] [address] Nucleated RBC/100 WBC (Bld) [Ratio] 1.5 /100 WBCs High 0.0-0.0 [facility] Comment on above: Performed By: #### 5 8410-2 ####ANDI Cotter ([id number])[facility] ([facility])[address] [place] [address] Platelets (Bld) [#/Vol] 272 x10*3/uL Normal 150-450 [facility] Comment on above: Performed By: #### 5 8410-2 ####ANDI Cotter ([id number])[facility] ([facility])[address] [place] [address] RBC (Bld) [#/Vol] 4.37 x10*6/uL Normal 4.00-5.[address] [facility] Comment on above: Performed By: #### 5 8410-2 ####ANDI Cotter ([id number])[facility] ([facility])[address] [place] [address] WBC (Bld) [#/Vol] 10.0 x10*3/uL Normal 4.4-11.[address] [facility] Comment on above: Performed By: #### 5 8410-2 ####ANDI Cotter ([id number])[facility] ([facility])[address] [place] [address] Comprehensive metabolic 2000 panelon 08-03-2023 Albumin BCP dye [Mass/Vol] 4.5 g/dL Normal 3.4-5.0 [facility] Comment on above: Performed By: #### 2 4323-8 ####ANDI Cotter ([id number])[facility] ([facility])[address] [place] [address] ALP [Catalytic activity/Vol] 87 U/L Normal 33-110 [facility] Comment on above: Performed By: #### 2 4323-8 ####ANDI CHAUDHARY L ([id number])[facility] ([facility])[address] [place] [address] ALT With P-5'-P [Catalytic activity/Vol] 35 U/L Normal 7-45 [facility] Comment on above: Result Comment: Evelyn ents treated with Sulfasalazine may generate falsely decreased results for ALT. Performed By: #### 2 4323-8 ####ANDI RENEEER L ([id number])[facility] ([facility])[address] [place] [address] Anion gap [Moles/Vol] 27 mmol/L High 10-20 [facility] Comment on above: Performed By: #### 2 4323-8 ####ANDI CHAUDHARY L ([id number])[facility] ([facility])[id number] [place] [address] AST With P-5'-P [Catalytic activity/Vol] 32 U/L Normal 9-39 [facility] Comment on above: Result Comment: MILD HEMOLYSIS DETECTED. The result may be falsely elevated due to hemolysis or other interferents. Clinical correlation is recommended. Repeat testing may be considered. Performed By: #### 2 4323-8 ####ANDI CHAUDHARY L ([id number])[facility] ([facility])[address] [place] [address] Bilirubin [Mass/Vol] 0.4 mg/dL Normal 0.0-1.[address] [facility] Comment on above: Performed By: #### 2 4323-8 ####ANDI RENEEER L ([id number])[facility] ([facility])[address] [place] [address] Calcium [Mass/Vol] 9.5 mg/dL Normal 8.6-10.6 [facility] Comment on above: Performed By: #### 2 4323-8 ####ANDI CHAUDHARY L ([id number])[facility] ([facility])[address] [place] [address] Chloride [Moles/Vol] 102 mmol/L Normal 98-[address] [facility] Comment on above: Performed By: #### 2 4323-8 ####ANDI Cotter ([id number])[facility] ([facility])[address] [place] [address] CO2 [Moles/Vol] 13 mmol/L Low 21-32 [facility] Comment on above: Performed By: #### 2 4323-8 ####ANDI Cotter ([id number])[facility] ([facility])[address] [place] [address] Creatinine [Mass/Vol] 0.72 mg/dL Normal 0.50-1.05 [facility] Comment on above: Performed By: #### 2 4323-8 ####ANDI Cotter ([id number])[facility] ([facility])[address] [place] [address] GFR/1.73 sq M.predicted MDRD (S/P/Bld) [Vol rate/Area] mL/min/{1.73_m2} Normal >60 [facility] Comment on above: Result Comment: Calc ulations of estimated GFR are performed using the 2020 CKD-EPI Study Refit equation without the race variable for the IDMS-Traceable creatinine methods.https://jasn.asnjournals.org/content// N.5142346138 Performed By: #### 2 4323-8 ####ANDI Cotter ([id number])[facility] ([facility])[address] [place] [address] Glucose [Mass/Vol] 140 mg/dL High 74-99 [facility] Comment on above: Performed By: #### 2 4323-8 ####ANDI Cotter ([id number])[facility] ([facility])[address] [place] [address] Potassium [Moles/Vol] 4.6 mmol/L Normal 3.5-5.3 [facility] Comment on above: Result Comment: MILD HEMOLYSIS DETECTED. The result may be falsely elevated due to hemolysis or other interferents. Clinical correlation is recommended. Repeat testing may be considered. Performed By: #### 2 4323-8 ####ANDI Cotter ([id number])[facility] ([facility])[address] [place] [address] Protein [Mass/Vol] 7.7 g/dL Normal 6.4-8.2 [facility] Comment on above: Performed By: #### 2 4323-8 ####ANDI Cotter ([id number])[facility] ([facility])[address] [place] [address] Sodium [Moles/Vol] 137 mmol/L Normal 136-145 [facility] Comment on above: Performed By: #### 2 4323-8 ####ANDI Cotter ([id number])[facility] ([facility])[address] [place] [address] Urea nitrogen [Mass/Vol] 15 mg/dL Normal 6-23 [facility] Comment on above: Performed By: #### 2 4323-8 ####ANDI Cotter ([id number])[facility] ([facility])[address] [place] [address] IgG subclass 4on 08-03-2023 IgG subclass 4 (S) [Mass/Vol] 229 mg/dL High 3-200 [facility] Comment on above: Performed By: #### 2 469-5 ####ANDI Cotter ([id number])[facility] ([facility])[address] [place] [address] Triacylglycerol lipaseon Lipase [Catalytic activity/Vol] 17 U/L Normal 9-82 [facility] Comment on above: Order Comment: Venip uncture immediately after or during the administration of Metamizole may lead to falsely low results. Testing should be performed immediately prior to Metamizole dosing. Performed By: #### 3 040-3 ####ANDI Cotter ([id number])[facility] ([facility])[address] [place] [address] CBC W Auto Differential pane l (Bld)on 07-05-2023 Basophils (Bld) [#/Vol] 0.07 x10*3/uL Normal 0.00-0.10 [facility] Comment on above: Performed By: #### 5 7021-8 #### ALVARO CROUCH ([id number]) [facility] ([facility]) [address] [place] [address] Basophils/100 WBC (Bld) 0.6 % Normal 0.0-2.0 [facility] Comment on above: Performed By: #### 5 7021-8 #### ALVARO CROUCH ([id number]) [facility] ([facility]) [address] [place] [address] Eosinophils (Bld) [#/Vol] 0.22 x10*3/uL Normal 0.00-0.70 [facility] Comment on above: Performed By: #### 5 7021-8 #### ALVARO CROUCH ([id number]) [facility] ([facility]) [address] [place] [address] Eosinophils/100 WBC (Bld) 1.9 % Normal 0.0-6.0 [facility] Comment on above: Performed By: #### 5 7021-8 #### ALVARO CROUCH ([id number]) [facility] ([facility]) [address] [place] [address] Erythrocyte distribution width (RBC) [Ratio] 13.2 % Normal 11.5-14.5 [facility] Comment on above: Performed By: #### 5 7021-8 #### ALVARO CROUCH ([id number]) [facility]. [facility] ([facility]) [address] [place] [address] Hematocrit (Bld) [Volume fraction] 46.2 % High 36.0-46.0 [facility] Comment on above: Performed By: #### 5 7021-8 #### ALVARO CROUCH ([id number]) [facility] ([facility]) [address] [place] [address] Hemoglobin (Bld) [Mass/Vol] 15.0 g/dL Normal 12.0-16.0 [facility] Comment on above: Performed By: #### 5 7021-8 #### ALVARO CROUCH ([id number]) [facility] ([facility]) [address] [place] [address] Immature granulocytes (Bld) [#/Vol] 0.09 x10*3/uL Normal 0.00-0.70 [facility] Comment on above: Performed By: #### 5 7021-8 #### ALVARO CROUCH ([id number]) [facility] ([facility]) [address] [place] [address] Immature granulocytes/100 WBC (Bld) 0.8 % Normal 0.0-0.9 [facility] Comment on above: Result Comment: Debbie ture Granulocyte Count (IG) includes promyelocytes, myelocytes and metamyelocytes but does not include bands. Percent differential counts (%) should be interpreted in the context of the absolute cell counts (cells/UL). Performed By: #### 5 7021-8 #### ALVARO CROUCH ([id number]) [facility] ([facility]) [address] [place] [address] Lymphocytes (Bld) [#/Vol] 2.43 x10*3/uL Normal 1.20-4.80 [facility] Comment on above: Performed By: #### 5 7021-8 #### ALVARO CROUCH ([id number]) [facility] ([facility]) [address] [place] [address] Lymphocytes/100 WBC (Bld) 20.5 % Normal 13.0-44.0 [facility] Comment on above: Performed By: #### 5 7021-8 #### ALVARO CROUCH ([id number]) [facility] ([facility]) [address] [place] [address] MCH (RBC) [Entitic mass] 29.1 pg Normal 26.0-34.0 [facility] Comment on above: Performed By: #### 5 7021-8 #### ALVARO CROUCH ([id number]) [facility] ([facility]) [address] [place] [address] MCHC (RBC) [Mass/Vol] 32.5 g/dL Normal 32.0-36.0 [facility] Comment on above: Performed By: #### 5 7021-8 #### ALVARO CROUCH ([id number]) [facility] ([facility]) [address] [place] [address] MCV (RBC) [Entitic vol] 90 fL Normal 80-100 [facility] Comment on above: Performed By: #### 5 7021-8 #### ALVARO CROUCH ([id number]) [facility] ([facility]) [address] [place] [address] Monocytes (Bld) [#/Vol] 0.54 x10*3/uL Normal 0.10-1.00 [facility] Comment on above: Performed By: #### 5 7021-8 #### ALVARO CROUCH ([id number]) [facility] ([facility]) [address] [place] [address] Monocytes/100 WBC (Bld) 4.5 % Normal 2.0-10.0 [facility] Comment on above: Performed By: #### 5 7021-8 #### ALVARO CROUCH ([id number]) [facility] ([facility]) [address] [place] [address] Neutrophils (Bld) [#/Vol] 8.53 x10*3/uL High 1.20-7.70 [facility] Comment on above: Result Comment: Perc ent differential counts (%) should be interpreted in the context of the absolute cell counts (cells/uL). Performed By: #### 5 7021-8 #### ALVARO CROUCH ([id number]) [facility] ([facility]) [address] [place] [address] Neutrophils/100 WBC (Bld) 71.7 % Normal 40.0-80.0 [facility] Comment on above: Performed By: #### 5 7021-8 #### ALVARO CROUCH ([id number]) [facility]) [address] [place] [address] Nucleated RBC/100 WBC (Bld) [Ratio] 0.0 /100 WBCs Normal 0.0-0.0 [facility] Comment on above: Performed By: #### 5 7021-8 #### ALVARO CROUCH ([id number]) [facility] ([facility]) [address] [place] [address] Platelet mean volume (Bld) [Entitic vol] 8.5 fL Normal 7.5-11.5 [facility] Comment on above: Performed By: #### 5 7021-8 #### ALVARO CROUCH ([id number]) [facility] ([facility]) [address] [place] [address] Platelets (Bld) [#/Vol] 531 x10*3/uL High 150-450 [facility] Comment on above: Performed By: #### 5 7021-8 #### ALVARO CROUCH ([id number]) [facility] ([facility]) [address] [place] [address] RBC (Bld) [#/Vol] 5.16 x10*6/uL Normal 4.00-5.20 [facility] Comment on above: Performed By: #### 5 7021-8 #### ALVARO CROUCH ([id number]) [facility] ([facility]) [address] [place] [address] WBC (Bld) [#/Vol] 11.9 x10*3/uL High 4.4-11.3 [facility] Comment on above: Performed By: #### 5 7021-8 #### ALVARO CROUCH ([id number]) [facility] ([facility]) [address] [place] [address] CT ABDOMEN PELVIS W IV CONTR Reny 07-05-2023 CT ABDOMEN PELVIS W IV CONTRAST STUDY: CT Abdomen and Pelvis with IV Contrast; 07/05/2023 7:42 PM INDICATION: Abdominal pain. COMPARISON: CT abdomen/pelvis 06/15/2023. US renal bilateral 05/14/2023. ACCESSION NUMBER(S): [id number] ORDERING CLINICIAN: SARAH HO TECHNIQUE: CT of [...] absent. Signed by Andreea Winter MD Normal [facility] Comprehensive metabolic 2000 panelon 07-05-2023 Albumin BCP dye [Mass/Vol] 5.3 g/dL High 3.4-5.0 [facility] Comment on above: Performed By: #### 2 4323-8 #### ALVARO CROUCH ([id number]) [facility] ([facility]) [address] [place] [address] ALP [Catalytic activity/Vol] 109 U/L Normal 33-110 [facility] Comment on above: Performed By: #### 2 4323-8 #### ALVARO CROUCH ([id number]) [facility]) [address] [place] [address] ALT With P-5'-P [Catalytic activity/Vol] 44 U/L Normal 7-45 [facility] Comment on above: Result Comment: Evelyn ents treated with Sulfasalazine may generate falsely decreased results for ALT. Performed By: #### 2 4323-8 #### ALVARO CROUCH ([id number]) [facility] ([facility]) [address] [place] [address] Anion gap [Moles/Vol] 22 mmol/L High 10-20 [facility] Comment on above: Performed By: #### 2 4323-8 #### ALVARO CROUCH ([id number]) [facility] ([facility]) [address] [place] [address] AST With P-5'-P [Catalytic activity/Vol] 33 U/L Normal 9-39 [facility] Comment on above: Performed By: #### 2 4323-8 #### ALVARO CROUCH ([id number]) [facility] ([facility]) [address] [place] [address] Bilirubin [Mass/Vol] 0.4 mg/dL Normal 0.0-1.2 [facility] Comment on above: Performed By: #### 2 4323-8 #### ALVARO CROUCH ([id number]) [facility] ([facility]) [address] [place] [address] Calcium [Mass/Vol] 10.0 mg/dL Normal 8.6-10.3 [facility] Comment on above: Performed By: #### 2 4323-8 #### ALVARO CROUCH ([id number]) [facility] ([facility]) [address] [place] [address] Chloride [Moles/Vol] 95 mmol/L Low 98-107 [facility] Comment on above: Performed By: #### 2 4323-8 #### ALVARO CROUCH ([id number]) [facility]) [address] [place] [address] CO2 [Moles/Vol] 21 mmol/L Normal 21-32 [facility] Comment on above: Performed By: #### 2 4323-8 #### ALVARO CROUCH ([id number]) [facility]) [address] [place] [address] Creatinine [Mass/Vol] 0.92 mg/dL Normal 0.50-1.05 [facility] Comment on above: Performed By: #### 2 4323-8 #### ALVARO CROUCH ([id number]) [facility]) [address] [place] [address] GFR/1.73 sq M.predicted MDRD (S/P/Bld) [Vol rate/Area] 77 mL/min/1.73m*2 Normal >60 [facility] Comment on above: Result Comment: Calc ulations of estimated GFR are performed using the 2020 CKD-EPI Study Refit equation without the race variable for the IDMS-Traceable creatinine methods. https://jasn.asnjournals.org/content/early//ASN.464180 0409 Performed By: #### 2 4323-8 #### ALVARO CROUCH ([id number]) [facility]) [address] [place] [address] Glucose [Mass/Vol] 141 mg/dL High 74-99 [facility] Comment on above: Performed By: #### 2 4323-8 #### ALVARO CROUCH ([id number]) [facility]) [address] [place] [address] Potassium [Moles/Vol] 3.9 mmol/L Normal 3.5-5.3 [facility] Comment on above: Performed By: #### 2 4323-8 #### ALVARO CROUCH ([id number]) [facility]) [address] [place] [address] Protein [Mass/Vol] 8.7 g/dL High 6.4-8.2 [facility] Comment on above: Performed By: #### 2 4323-8 #### ALVARO CROUCH ([id number]) [facility] ([facility]) [address] [place] [address] Sodium [Moles/Vol] 134 mmol/L Low 136-145 [facility] Comment on above: Performed By: #### 2 4323-8 #### ALVARO CROUCH ([id number]) [facility] ([facility]) [address] [place] [address] Urea nitrogen [Mass/Vol] 26 mg/dL High 6-23 [facility] Comment on above: Performed By: #### 2 4323-8 #### ALVARO CROUCH ([id number]) [facility] ([facility]) [address] [place] [address] Triacylglycerol lipaseon Lipase [Catalytic activity/Vol] 43 U/L Normal 9-82 [facility] Comment on above: Order Comment: Venip uncture immediately after or during the administration of Metamizole may lead to falsely low results. Testing should be performed immediately prior to Metamizole dosing. Performed By: #### 3 040-3 #### ALVARO CROUCH ([id number]) [facility] ([facility]) [address] [place] [address] Urinalysis complete W Reflex Culture panel (U)on 07-05-2023 Appearance (U) Clear Normal Clear [facility] Comment on above: Performed By: #### 5 8077-9 #### ALVARO CROUCH ([id number]) [facility] ([facility]) [address] [place] [address] Bilirubin (U) [Mass/Vol] Negative Normal NEGATIVE [facility] Comment on above: Performed By: #### 5 8077-9 #### ALVARO CROUCH ([id number]) [facility] ([facility]) [address] [place] [address] Color (U) Yellow Normal Straw, Yellow [facility] Comment on above: Performed By: #### 5 8077-9 #### ALVARO CROUCH ([id number]) [facility] ([facility]) [address] [place] [address] Glucose Auto test strip (U) [Mass/Vol] Negative Normal NEGATIVE [facility] Comment on above: Performed By: #### 5 8077-9 #### ALVARO CROUCH ([id number]) [facility] ([facility]) [address] [place] [address] Ketones (U) [Mass/Vol] Negative Normal NEGATIVE [facility] Comment on above: Performed By: #### 5 8077-9 #### ALVARO CROUCH ([id number]) [facility] ([facility]) [address] [place] [address] Leukocyte esterase Auto test strip Ql (U) Negative Normal NEGATIVE [facility] Comment on above: Performed By: #### 5 8077-9 #### ALVARO CROUCH ([id number]) [facility] ([facility]) [address] [place] [address] Nitrite Auto test strip Ql (U) Negative Normal NEGATIVE [facility] Comment on above: Performed By: #### 5 8077-9 #### ALVARO CROUCH ([id number]) [facility] ([facility]) [address] [place] [address] pH (U) 5.0 [pH] Normal 5.0, 5.5, 6.0, 6.5, 7.0, 7.5, 8.0 [facility] Comment on above: Performed By: #### 5 8077-9 #### ALVARO CROUCH ([id number]) [facility] ([facility]) [address] [place] [address] Protein (U) [Mass/Vol] Negative Normal NEGATIVE [facility] Comment on above: Performed By: #### 5 8077-9 #### ALVARO CROUCH ([id number]) [facility] ([facility]) [address] [place] [address] RBC (U) [#/Vol] Negative Normal NEGATIVE [facility] Comment on above: Performed By: #### 5 8077-9 #### ALVARO CROUCH ([id number]) [facility] ([facility]) [address] [place] [address] Specific gravity (U) [Rel density] 1.015 Normal 1.005-1.035 [facility] Comment on above: Performed By: #### 5 8077-9 #### ALVARO CROUCH ([id number]) [facility] ([facility]) [address] [place] [address] Urobilinogen (U) [Mass/Vol] mg/dL Normal <2.0 [facility] Comment on above: Performed By: #### 5 8077-9 #### ALVARO CROUCH ([id number]) [facility] ([facility]) [address] [place] [address] Glucose Test strip manual (B ld) [Mass/Vol]on 06-18-2023 Glucose [Mass/Vol] 102 mg/dL High 74 - 99 mg/dL [facility] Interpretation and review of laboratory results Abnormal [facility] Glucose [Mass/Vol] 102 mg/dL High 74-99 [facility] Comment on above: Performed By: #### 2 341-6 ####ANDI Cotter ([id number])[facility] ([facility])[address] [place] [address] Clinical Event Note-Discharg e discussionon 06-17-2023 Clinical Event Note-Discharge discussion Clinical Event: Clinical Event Note: TopicDischarge discussion Details I have discussed with the patient along with the nursing regulation supervisor Kaylen in the patients room, regarding [...] Updated: 17-Jun-2023 19:26 by Chastity León) Normal [facility] C Reactive Protein, Serumon 06-16-2023 CRP [Mass/Vol] 0.86 mg/dL [facility] Comment on above: REF VALUE< 1.00 REF VALUE < 1.00 C-REACTIVE PROTEINon 023 C-REACTIVE PROTEIN 0.86 mg/dL Normal [facility] Comment on above: Result Comment: REF VALUE < 1.00 Performed By: #### C RP #### [facility] [id number] [place] [address] CBCon 06-16-2023 Erythrocyte distribution width (RBC) [Ratio] 13.6 % Normal 11.5 - 14.5 [facility] Comment on above: Reference Range: 11. 5 - 14.5 Performed By: #### C BC ####[id number] [place] [address] Hematocrit (Bld) [Volume fraction] 38.3 % Normal 36.0 - 46.0 [facility] Comment on above: Reference Range: 36. 0 - 46.0 Performed By: #### C BC ####[id number] [place] [address] Hemoglobin (Bld) [Mass/Vol] 12.2 g/dL Normal 12.0 - 16.0 [facility] Comment on above: Reference Range: 12. 0 - 16.0 Performed By: #### C BC ####[id number] [place] [address] MCHC (RBC) [Mass/Vol] 31.9 g/dL Low 32.0 - 36.0 [facility] Comment on above: Reference Range: 32. 0 - 36.0 Performed By: #### C BC ####[id number] [place] [address] MCV (RBC) [Entitic vol] 92 fL Normal 80 - 100 [facility] Comment on above: Performed By: #### C BC ####[id number] [place] [address] NUCLEATED RBC 0.0 /100 WBC Normal 0.0-0.0 [facility] Comment on above: Performed By: #### C BC ####[id number] [place] [address] Platelets (Bld) [#/Vol] 380 10*3/uL Normal 150 - 450 [facility] Comment on above: Performed By: #### C BC ####[id number] [place] [address] RBC 4.15 x10E12/L Normal 4.00 - 5.20 [facility] Comment on above: Performed By: #### C BC ####[id number] [place] [address] WBC (Bld) [#/Vol] 5.8 10*3/uL Normal 4.4 - 11.3 [place] Comment on above: Performed By: #### C BC ####[id number] [place] [address] CBC panel Auto (Bld)on 06-16 Interpretation and review of laboratory results Abnormal [facility] Nucleated RBC/100 WBC (Bld) [Ratio] 0.0 % [facility] RBC (Bld) [#/Vol] 4.15 10*6/uL [facility] COMPREHENSIVE PANELon 2022 Albumin [Mass/Vol] 3.8 g/dL Normal 3.4 - 5.0 [facility] Comment on above: Performed By: #### E MRAD #### NO LOCATION NEEDED ALP [Catalytic activity/Vol] 65 U/L Normal 33 - 110 [facility] Comment on above: Performed By: #### E MRAD #### NO LOCATION NEEDED ALT [Catalytic activity/Vol] 41 U/L Normal 7 - 45 [facility] Comment on above: Result Comment: Evelyn ents treated with Sulfasalazine may generate falsely decreased results for ALT. Performed By: #### E MRAD #### NO LOCATION NEEDED Anion gap [Moles/Vol] 18 mmol/L Normal 10 - 20 [facility] Comment on above: Performed By: #### E MRAD #### NO LOCATION NEEDED AST [Catalytic activity/Vol] 28 U/L Normal 9 - 39 [facility] Comment on above: Performed By: #### E MRAD #### NO LOCATION NEEDED Bilirubin [Mass/Vol] 0.3 mg/dL Normal 0.0 - 1.2 [facility] Comment on above: Performed By: #### E MRAD #### NO LOCATION NEEDED Calcium [Mass/Vol] 8.9 mg/dL Normal 8.6 - 10.6 [place] Comment on above: Performed By: #### E MRAD #### NO LOCATION NEEDED Chloride [Moles/Vol] 98 mmol/L Normal 98 - 107 [facility] Comment on above: Performed By: #### E MRAD #### NO LOCATION NEEDED Creatinine [Mass/Vol] 0.69 mg/dL Normal 0.50 - 1.05 [facility] Comment on above: Reference Range: 0.5 0 - 1.05 Performed By: #### E MRAD #### NO LOCATION NEEDED eGFR FEMALE >90 Normal >90 [facility] Comment on above: Result Comment: CALC ULATIONS OF ESTIMATED GFR ARE PERFORMED USING THE 2020 CKD-EPI STUDY REFIT EQUATION WITHOUT THE RACE VARIABLE FOR THE IDMS-TRACEABLE CREATININE METHODS. https://jasn.asnjournals.org/content//ASN.295786 1446 Performed By: #### E MRAD #### NO LOCATION NEEDED Glucose [Mass/Vol] 163 mg/dL High 74 - 99 [place] Comment on above: Performed By: #### E MRAD #### NO LOCATION NEEDED HCO3 (Bld) [Moles/Vol] 26 mmol/L Normal 21 - 32 [facility] Comment on above: Performed By: #### E MRAD #### NO LOCATION NEEDED Potassium [Moles/Vol] 3.7 mmol/L Normal 3.5 - 5.3 [facility] Comment on above: Performed By: #### E MRAD #### NO LOCATION NEEDED Protein [Mass/Vol] 6.5 g/dL Normal 6.4 - 8.2 [place] Comment on above: Performed By: #### E MRAD #### NO LOCATION NEEDED Sodium [Moles/Vol] 138 mmol/L Normal 136 - 145 [place] Comment on above: Performed By: #### E MRAD #### NO LOCATION NEEDED Urea nitrogen [Mass/Vol] 14 mg/dL Normal 6 - 23 [facility] Comment on above: Performed By: [...] Updated: 16-Jun-2023 18:48 by Chastity León) Normal [facility] Clinical Event Note-Pain man agement consulton 06-16-2023 [...] at this time Objective Information T [id number] [id number] % Date/Time06/16 7: 7: 3: 7: 7: [...] Updated: 17-Jun-2023 09:07 by Tayler Jackson) Normal [facility] Comprehensive metabolic 2000 panelon 06-16-2023 GFR Female >90 - PINF [facility] Comment on above: CALCULATIONS OF ESTUARDO MATED GFR ARE PERFORMED USING THE 2020 CKD-EPI STUDY REFIT EQUATION WITHOUT THE RACE VARIABLE FOR THE IDMS-TRACEABLE CREATININE METHODS. https://jasn.asnjournals.org/content/early//ASN.039890 2074 Interpretation and review of laboratory results Abnormal [facility] Consult-Gastroenterologyon 0 06-16-2023 Consult-Gastroenterol ogy Service: Service: [...] [place] [phone]. Thank you. Consult Status: Consult Status (select all that apply): initial consult complete, will follow Consult Order ID: [id number] Attestation: Note Completion: I am a: Resident/Fellow [...] the note. I personally evaluated the patient [id number] Electronic Signatures: Uvaldo Chavez) (Signed 11-Jul-2023 05:05) Authored: Assessment/Recommendati ons, Note Completion Co-Signer: Service, History of Present Illness, Review Family/Social History and ROS, Allergies, Objective, Assessment/Recommendati ons, Note Completion Sapna Hernandez (Fellow)) (Signed 16-Jun-2023 18:30) Authored: Service, History of Present Illness, Review Family/Social History and ROS, Allergies, Obje (more content not included)... Normal [facility] Discharge [id number] Discharge Profile2 Discharge Orders: Anticipated Discharge Date: Anticipated Discharge [id number] Problem List: Additional Dx: Chronic pancreatitis: Catalog [...] Follow-Up Appointment 01: Physician/Dept/Doni astroenterology clinic Scheduled Date/[id number] 09:40 [facility] Follow-Up Appointment 02: Physician/Dept/Shital ain management clinic Call to Schedule in2 weeks Scheduled Date/[id number] 13:30 [facility]. Electronic Signatures: Chastity León) (Signed 16-Jun-2023 16:38) Authored: Discharge Orders, Provider FINAL REVIEW of Orders, Appointments, Gold Form - Fixer Supervisor Summary Last Updated: 16-Jun-2023 16:38 by Chastity León) Normal [facility] Laboratory - Chemistry and C hemistry - challengeon 06-16-2023 Albumin BCP dye [Mass/Vol] 3.8 g/dL 3.4 - 5.0 g/dL [facility] ALT With P-5'-P [Catalytic activity/Vol] 41 U/L 7 - 45 U/L [facility] Comment on above: Patients treated wit h Sulfasalazine may generate falsely decreased results for ALT. Patients treated wit h Sulfasalazine may generate falsely decreased results for ALT. AST With P-5'-P [Catalytic activity/Vol] 28 U/L 9 - 39 U/L [facility] CO2 [Moles/Vol] 26 mmol/L 21 - 32 mmol/L [facility] Laboratory - Hematology and Cell countson 06-16-2023 RBC (Bld) [#/Vol] 4.15 {x10E12/L} See Below [facility] -Gastroenter ology-[place] [facility] Work Phone: Comment on above: Reference Range: 4.0 0 - 5.20 No Panel Informationon 06-16 [facility] 0.0 {/100_WBC} 0.0-0.0 [facility]-Gastroe nter ology-[place] [facility] Work Phone: >90 >90 [facility]-Gastroenter ology[facility] Work Phone: Comment on above: CALCULATIONS OF ESTUARDO MATED GFR ARE PERFORMED USING THE 2020 CKD-EPI STUDY REFIT EQUATION WITHOUT THE RACE VARIABLE FOR THE IDMS-TRACEABLE CREATININE METHODS.https://jasn.asnjournals.org/content/early/ N.9249552463 Order Reconciliationon 06-16 Order Reconciliation Page 1 [...] tab(s) orally (more content not included)... Normal [facility] Admission Risk Screen - Adul ton 06-15-2023 [...] AlertFor Ebola-like Symptoms: Isolate Patient and Notify Provider/Aluminum Sheet Cutter For Contact: Notify Provider/Aluminum Sheet Cutter Advance Directive: Advance Directive/DNRno Advance Directive Information [...] instruction; written material Cultural Considerationsnone Developmental Considerationsnone Jehovah'S Witness Considerationsnone Learning Assessment (Other Learner): Other learner availableno Depression Screen: During the past month, have you often been bothered by feeling down, depressed or hopelessno During the past month, have you often had little interest or pleasure in doing thingsno Have you had any thoughts of harming anyone elseno (1) [place] Suicide: Risk Screen Not Applicable/Able to Answerable to be screened In the Past Month: Have you wished you were or could go to sleep and not wake upno(1) In the Past Month: Have you had any actual thoughts of killing yourself no(1) Lifetime: Have you ever done, started to do, or prepared to do anything to end your lifeno [place] Suicide Risknegative Adult Nutrition Screen: Have you [...] there a (more content not included)... Normal [facility] BD CT ABDOMEN AND PELVIS W I V CONTRASTon 06-15-[address] ABDOMEN AND PELVIS W IV CONTRAST Patient Name: DOROTHEA RUTLEDGE STUDY: CT ABDOMEN AND PELVIS W IV CONTRAST; 06/15/2023 2:33 am INDICATION: epigastric pain h/o necrotizing pancreatitis, Lie Flat: Yes . COMPARISON: CT abdomen pelvis 05/12/2023 ACCESSION NUMBER(S): [id number] ORDERING CLINICIAN: ANGELA MILES TECHNIQUE: CT of [...] as stated. This study was interpreted at [place], [place]. MACRO: None Electronically signed by: YAHAIRA DELVALLE MD Normal [facility] C-REACTIVE PROTEINon 023 C-REACTIVE PROTEIN 0.91 mg/dL Normal [facility] Comment on above: Result Comment: REF VALUE < 1.00 Performed By: #### C RP #### [facility] [address] [place] [address] C-Reactive Proteinon 023 CRP [Mass/Vol] 0.91 mg/dL [facility] Comment on above: REF VALUE < 1.00 CRP [Mass/Vol]on 06-15-[address] [facility] [address] Abdomen and Pelvis W [...] as stated. This study was interpreted at [place], [place]. MACRO: None [facility] Interpreted By: YAHAIRA RUSSO MD and ERICK PENNY DO Patient Name: DOROTHEA RUTLEDGE STUDY: CT ABDOMEN AND PELVIS W IV CONTRAST; 06/15/2023 2:33 am INDICATION: epigastric pain h/o necrotizing pancreatitis, Lie Flat: Yes . COMPARISON: CT abdomen pelvis 05/12/2023 ACCESSION NUMBER(S): [id number] ORDERING CLINICIAN: ANGELA MILES TECHNIQUE: CT of [...] The abdominal wall soft tissues appear normal. [facility] Yahaira Delvalle MD - 06/15/2023 Interpreted By: YAHAIRA DELVALLE MD and ERICK PENNY DO Patient Name: DOROTHEA RUTLEDGE STUDY: CT ABDOMEN AND PELVIS W IV CONTRAST; 06/15/2023 2:33 am INDICATION: epigastric pain h/o necrotizing pancreatitis, Lie Flat: Yes . COMPARISON: CT abdomen pelvis 05/12/2023 ACCESSION NUMBER(S): [id number] ORDERING CLINICIAN: ANGELA MILES TECHNIQUE: CT of [...] as stated. This study was interpreted at [facility], [place], [place]. MACRO: None [facility] Work Phone: Radiology Study observation (narrative) [facility] Work Phone: CT Abdomen and Pelvis W cont rast IVOrdered By: Yahaira Delvalle on 06-15-2023 [facility] Work Phone: CT Abdomen and [...] to follow. Please page GI consult pager [phone] for any questions during the daytime/weekdays, and the GI call pager, [phone] after 5pm and on weekends/holidays. Electronic Signatures: Sapna Hernandez ( (Fellow)) (Signed 15-Jun-2023 23:29) Authored: Clinical Event Note Last Updated: 15-Jun-2023 23:29 by Sapna Hernandez ( (Fellow)) Normal [facility] DRUG SCREEN,URINEon 06-15-20 23 AMPHETAMINE SCREEN,U Negative Normal NEGATIVE [facility] Comment on above: Result Comment: CUTO FF LEVEL: 500 NG/ML Cross-reactivity has been reported with high concentrations of the following drugs: buproprion, chloroquine, chlorpromazine, ephedrine, mephentermine, fenfluramine, phentermine, phenylpropanolamine, pseudoephedrine, and propranolol. Performed By: #### E MRAD #### NO LOCATION NEEDED BARBITURATES SCREEN,U Negative Normal NEGATIVE [facility] Comment on above: Result Comment: CUTO FF LEVEL: 200 NG/ML Performed By: #### E MRAD #### NO LOCATION NEEDED BENZODIAZEPINES SCREEN,U Negative Normal NEGATIVE [facility] Comment on above: Result Comment: CUTO FF LEVEL: 200 NG/ML Performed By: #### E MRAD #### NO LOCATION NEEDED CANNABINOIDS SCREEN,U Negative Normal NEGATIVE [facility] Comment on above: Result Comment: CUTO FF LEVEL: 50 NG/ML Performed By: #### E MRAD #### NO LOCATION NEEDED COCAINE METABOLITE SCREEN,U Negative Normal NEGATIVE [facility] Comment on above: Result Comment: CUTO FF LEVEL: 150 NG/ML Performed By: #### E MRAD #### NO LOCATION NEEDED DRUG SCREEN COMMENT SEE BELOW Normal [facility] Comment on above: Result Comment: Drug screen results are presumptive and should not be used to assess compliance with prescribed medication. Contact the performing [facility] laboratory to add-on definitive confirmatory testing if [...] LOCATION NEEDED FENTANYL SCREEN,URINE Negative Normal NEGATIVE [facility] Comment on above: Result Comment: CUTO FF LEVEL: 5 NG/ML Performed By: #### E MRAD #### NO LOCATION NEEDED OPIATES SCREEN,U Positive Abnormal NEGATIVE [facility] Comment on above: Result Comment: CUTO FF LEVEL: 300 NG/ML The opiate screen does not detect fentanyl, meperidine, or tramadol. Oxycodone is not consistently detected (refer to Oxycodone Screen, Urine result). Performed By: #### E MRAD #### NO LOCATION NEEDED OXYCODONE SCREEN,U Negative Normal NEGATIVE [facility] Comment on above: Result Comment: CUTO FF LEVEL: 100 NG/ML This test will accurately detect both oxycodone and oxymorphone. Performed By: #### E MRAD #### NO LOCATION NEEDED PCP SCREEN,U Negative Normal NEGATIVE [facility] Comment on above: Result Comment: CUTO FF LEVEL: 25 NG/ML Cross-reactivity has been reported with dextromethorphan. Performed By: #### E MRAD #### NO LOCATION NEEDED Amphetamines Screen Ql (U) Negative NEGATIVE [facility] Comment on above: CUTOFF LEVEL: 500 NG /ML Cross-reactivity has been reported with high concentrations of the following drugs: buproprion, chloroquine, chlorpromazine, ephedrine, mephentermine, fenfluramine, phentermine, phenylpropanolamine, pseudoephedrine, and propranolol. Barbiturates Screen Ql (U) Negative NEGATIVE [facility] Comment on above: CUTOFF LEVEL: 200 NG /ML BENZODIAZEPINE (PRESENCE) IN URINE BY SCREEN METHOD Negative NEGATIVE [facility] Comment on above: CUTOFF LEVEL: 200 NG /ML Cannabinoids Screen Ql (U) Negative NEGATIVE [facility] Comment on above: CUTOFF LEVEL: 50 NG/ ML Cocaine Ql (U) Negative NEGATIVE [facility] Comment on above: CUTOFF LEVEL: 150 NG /ML DRUG SCREEN COMMENT URINE SEE BELOW [facility] Comment on above: Drug screen results are presumptive and should not be used to assess compliance with prescribed medication. Contact the performing [facility] laboratory to add-on definitive confirmatory testing if [...] directors. fentaNYL+Norfentanyl Screen Ql (U) Negative NEGATIVE [facility] Comment on above: CUTOFF LEVEL: 5 NG/M L Interpretation and review of laboratory results Abnormal [facility] Opiates Screen Ql (U) Positive Abnormal NEGATIVE [facility] Comment on above: CUTOFF LEVEL: 300 NG /ML The opiate screen does not detect fentanyl, meperidine, or tramadol. Oxycodone is not consistently detected (refer to Oxycodone Screen, Urine result). oxyCODONE+oxyMORphone Screen Ql (U) Negative NEGATIVE [facility] Comment on above: CUTOFF LEVEL: 100 NG /ML This test will accurately detect both oxycodone and oxymorphone. Phencyclidine Ql (U) Negative NEGATIVE [facility] Comment on above: CUTOFF LEVEL: 25 NG/ ML Cross-reactivity has been reported with dextromethorphan. [facility] Discharge Planning [id number] 0 06-15-2023 Discharge Planning Note2 Discharge Planning: Discharge Barriersnone Planned Dispositionhome Discharge Destinationhome AMPAC < 20no Anticipated Discharge [id number] Discharge Planning 06/15/23 1121 Transitional Care Coordination [...] TCC (doc halo) Assessment: Discharge Planning Assessment [id number] Discharge Planning Assessment Completed byMolly Powell RN, TCC Primary Contact Name and NumberLizz Dockery (mother) [phone] Prior Level of FunctioningIndependent Lives Withsignificant other(1) Living Arrangementshouse(1) Stated Reason for Admissioninflamed cyst on pancreas(1) Arrived Fromemergency department Karen Rivera NP [facility] Recent Falls/ Injury/ Need Assist with AmbulationDenies [...] Profile - Adult v2 15-Jun-2023 04:21 Normal [facility] EMR ADDONon 06-15-2023 ADDON CONFIRMATION REQUEST REC'D Normal [facility] Comment on above: Performed By: #### E MRAD #### NO LOCATION NEEDED Electrocardiogram 12 LeadOrd ered By: Zofia Young on 06-15-2023 Atrial Rate 87 BPM [facility] Work Phone: P [place] 50 degrees [facility] Work Phone: P Offset 201 ms [facility] Work Phone: P Onset 149 ms [facility] Work Phone: MD Interval 148 ms [facility] Work Phone: Q Onset 223 ms [facility] Work Phone: QRS Count 14 beats [facility] Work Phone: QRS Duration 88 ms [facility] Work Phone: QT Interval 378 ms [facility] Work Phone: QTC Calculation(Bazett) [address] [facility] Work Phone: QTC Fredericia [address] [facility] Work Phone: R [place] 6 degrees [facility] Work Phone: T [place] 32 degrees [facility] Work Phone: T Offset 412 ms [facility] Work Phone: Ventricular Rate 87 BPM [facility] Work Phone: [facility] Work Phone: Electrocardiogram 12 Leadon 06-15-2023 Confirmed by Zofia Young ([id number]) on 06/15/2023 2:07:55 AM Zofia Tineo, 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 - 06/15/2023 Confirmed by Zofia Young ([id number]) on 06/15/2023 2:07:55 AM [facility] Work Phone: Laboratory - Drug [...] compliance with prescribed medication. Contact the performing [facility] laboratory to add-on definitive confirmatory testing if [...] (Advanced Practice Nurse-Admit) done by Nancy Benedict (MANAGER PROFESSIONAL DEVELOPMENT-SPECIAL NEEDS TEACHER) ED to Observation - Reconciliation: 15-Jun-2023 05:51 by: Nancy Benedict (MANAGER PROFESSIONAL DEVELOPMENT-SPECIAL NEEDS TEACHER) ED to Observation - AutoLinked: 15-Jun-2023 05:51 by: Nancy Benedict (MANAGER PROFESSIONAL DEVELOPMENT-SPECIAL NEEDS TEACHER) Home MedicationsEnteredLast Dose TakenReconciled with current Order Reconciliation Comment/ Additional Information Abilify 10 mg oral tablet 1 tab(s) orally once a day 15-Jun-2023 NoLongerTaking acetaminophen 500 mg oral tablet 2 tab(s) orally every 8 hours, As Needed for [id number] Acetaminophen Tablet (TYLENOL)DOSE = 975 mg Oral [...] oral tablet 1 tab(s) orally once a [id number]-5932 Reviewed and Held benzonatate 100 mg oral capsule 1 cap(s) orally 3 times a fly04-Xeu-0805 Reviewed and Held benztropine 0.5 mg oral tablet 1 tab(s) orally once a day (at bedtime), As Needed for HSO15-Dgu-8664 Reviewed and Held cholecalciferol 1250 mcg (50,000 intl units) oral capsule 1 cap(s) orally once a week on Reviewed and Held cloNIDine 0.2 mg oral tablet 1 tab(s) orally once a [id number]-1235 cloNIDine (CATAPRES) TabletDOSE = 0.2 mg Oral DailycloNIDine 0.2 mg oral tablet continued as the inpatient order cloNIDine (CATAPRES) Cogentin orally 2 times a kdm54-Ujn-2896 Reviewed and Held Depakote 250 mg oral [...] (at bedtime), As Needed - for allergy nvyojxye22-Gmh-2428 diphenhydrAMINE Capsule (BENADRYL)DOSE = 25 mg Oral Every 4 Hours, PRN Allergy SymptomsdiphenhydrAMINE 25 mg oral tablet continued as the inpatient order diphenhydrAMINE Effexor 225 milligram(s) orally once a yri85-Eww-0795 Venlafaxine Extended Release Capsule, Extended Release (EFFEXOR XR)DOSE = 225 mg Oral DailyEffexor continued as the inpatient order Venlafaxine Extended Release fenofibrate 145 mg oral tablet 1 tab(s) orally once a xjx56-Spj-8942 Fenofibrate Tablet (LOFIBRA)DOSE = 160 mg Oral DailyNotes from Pharmacy: Substitution for Fenofibrate 145 mg Capsule Dailyfenofibrate 145 mg oral tablet continued as the inpatient order Fenofibrate furosemide 40 mg oral tablet 1 tab(s) orally once a lmo51-Ywf-2829 Furosemide Tablet (LASIX)DOSE = 40 mg Oral Dailyfurosemide 40 mg oral tablet continued as the inpatient order Furosemide hydroCHLOROthiazide 25 mg oral tablet 1 tab(s) orally once a hwa42-Wzo-8629 hydroCHLOROthiazide Tablet (ESIDRIX)DOSE = 25 mg Oral Daily hydroCHLOROthiazide 25 mg oral tablet continued as the inpatient order hydroCHLOROthiazide lacosamide 100 mg oral tablet take 1 tablet by mouth once in the morning and 2 tablets in the -Nyh-0353 Lacosamide Tablet (VIMPAT)DOSE = 200 mg Oral Every Nightlacosamide 100 mg oral tablet continued as the inpatient order Lacosamide; lacosamide 100 mg oral tablet continued as the inpatient order Lacosamide lacosamide 100 mg oral tablet take 1 tablet by mouth once in the morning and 2 tablets in the ixjogbm60-Ore-2188 Lacosamide Tablet (VIMPAT)DOSE = 100 mg Oral Every Morninglacosamide 100 mg oral tablet continued as the inpatient order Lacosamide; lacosamide 100 mg oral tablet continued as the inpatient order Lacosamide lactulose 10 g/15 mL oral syrup 15 milliliter(s) orally 2 times a day, As Needed - for fimollsrxfjk37-Ebl-4517 Reviewed and Held Lasix 40 mg oral tablet 1 tab(s) orally once a day 15-Jun-2023 NoLongerTaking Linzess 290 mcg oral capsule 1 cap(s) orally once a lrv04-Mlq-1626 Linaclotide Capsule (LINZESS)DOSE = 290 microgram(s) Oral [...] bedtime), As Needed - for sleep / vovlbflz12-Qru-9803 Reviewed and Held menthol-benzocaine 3.6 mg-15 mg mucous membrane lozenge mucous membrane 15-Jun-2023 Reviewed and Held methenamine hippurate 1 g oral tablet 1 tab(s) orally once a lvr20-Qln-4691 Held and Reconciled, Review at Next Reconciliation metopr (more content not included)... Normal [facility] Patient Profile - Adult v2on 06-15-2023 Patient Profile - Adult v2 Profile: Initial Info: How to be AddressedAmanda(1) Spoken Language PreferredEnglish (1) Stated Reason for Admissioninflamed cyst on pancreas Wants Family/Rep Notified of Admissionyes, primary contact Notify PCPnotify PCP Informed of Patient Visiting Rightsyes [place] Employment Statusemployed(1) Patient Belongingsremains with patient Medications Brought to Hospitalno General Health: Blood Avoidance/Restrictionsn one(1) Weight in kg96 kilogram(s)(2) Weight in kqy026.6 pound(s) Weight Methodestimated Scale Typebed Height in [...] other Living Arrangementshouse Services 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 Admitting Considerations: Condition on Disposition: [...] Updated: 16-Jun-2023 05:21 by Camilo Larios) Normal [facility] URINALYSISon 06-15-2023 Appearance (U) CLEAR Normal CLEAR [facility] Comment on above: Performed By: #### U A ####[id number] [place] [address] Bilirubin Ql (U) Negative Normal NEGATIVE [facility] Comment on above: Performed By: #### U A ####[id number] [place] [address] Color (U) YELLOW Normal STRAW,YELLOW [facility] Comment on above: Performed By: #### U A ####[id number] [place] [address] Glucose Ql (U) Negative Normal NEGATIVE [facility] Comment on above: Performed By: #### U A ####[id number] [place] [address] Hemoglobin Ql (U) Negative Normal NEGATIVE [facility] Comment on above: Performed By: #### U A ####[id number] [place] [address] Ketones Ql (U) Negative Normal NEGATIVE [facility] Comment on above: Performed By: #### U A ####[id number] [place] [address] Leukocyte esterase Test strip Ql (U) Negative Normal NEGATIVE [facility] Comment on above: Performed By: #### U A ####[id number] [place] [address] Nitrite Ql (U) Negative Normal NEGATIVE [facility] Comment on above: Performed By: #### U A ####[id number] [place] [address] pH (U) 6.0 [pH] Normal 5.0 - 8.0 [facility] Comment on above: Performed By: #### U A ####[id number] [place] [address] Protein Ql (U) Negative Normal NEGATIVE [facility] Comment on above: Performed By: #### U A ####[id number] [place] [address] Specific gravity (U) [Rel density] >1.060 Abnormal 1.005 - 1.035 [facility] Comment on above: Specific gravity of >1.060 may be falsely elevated due to interferences with measurement. If clinically indicated, repeat testing with an alternative method is available by contacting the laboratory within 24 hours. Result Comment: Spec [facility] gravity of >1.060 may be falsely elevated due to interferences with measurement. If clinically indicated, repeat testing with an alternative method is available by contacting the laboratory within 24 hours. Performed By: #### U A ####[id number] [place] [address] Urobilinogen (U) [Mass/Vol] mg/dL Normal 0.0 - 1.9 [facility] Comment on above: Performed By: #### U A ####[id number] [place] [address] Urinalysison 06-15-2023 Color (U) YELLOW See Below [...] )on 06-15-2023 Bilirubin (U) [Mass/Vol] Negative NEGATIVE [facility] Glucose Auto test strip (U) [Mass/Vol] Negative NEGATIVE mg/dL [facility] Interpretation and review of laboratory results Abnormal [facility] Ketones (U) [Mass/Vol] Negative NEGATIVE mg/dL [facility] Leukocyte esterase Auto test strip Ql (U) Negative NEGATIVE [facility] Nitrite Auto test strip Ql (U) Negative NEGATIVE [facility] Protein (U) [Mass/Vol] Negative NEGATIVE mg/dL [facility] RBC (U) [#/Vol] Negative NEGATIVE [facility] C Reactive Protein, Serumon 06-14-2023 CRP [Mass/Vol] 0.91 mg/dL [facility] Work Phone: Comment on above: REF VALUE< 1.00 CBC AND DIFFERENTIALon 06-14 % AUTOMATED IMMATURE GRAN 0.5 % Normal 0.0 - 0.9 [facility] Comment on above: Result Comment: Debbie ture Granulocyte Count (IG) includes promyelocytes, myelocytes and metamyelocytes but does not include bands. Percent differential counts (%) should be interpreted in the context of the absolute cell counts (cells/L). Performed By: #### C BCDF #### [facility] [address] [place] [address] Basophils (Bld) [#/Vol] 0.06 10*3/uL Normal 0.00 - 0.10 [facility] Comment on above: Performed By: #### C BCDF #### [facility] [address] [place] [address] Basophils/100 WBC (Bld) 0.7 % Normal 0.0 - 2.0 [facility] Comment on above: Performed By: #### C BCDF #### [facility] [address] [place] [address] Eosinophils (Bld) [#/Vol] 0.28 10*3/uL Normal 0.00 - 0.70 [facility] Comment on above: Performed By: #### C BCDF #### [facility] [address] [place] [address] Eosinophils/100 WBC (Bld) 3.2 % Normal 0.0 - 6.0 [facility] Comment on above: Performed By: #### C BCDF #### [facility] [address] [place] [address] Erythrocyte distribution width (RBC) [Ratio] 13.2 % Normal 11.5 - 14.5 [facility] Comment on above: Performed By: #### C BCDF #### [facility] [address] [place] [address] Hematocrit (Bld) [Volume fraction] 36.0 % Normal 36.0 - 46.0 [facility] Comment on above: Performed By: #### C BCDF #### [facility] [address] [place] [address] Hemoglobin (Bld) [Mass/Vol] 11.9 g/dL Low 12.0 - 16.0 [facility] Comment on above: Performed By: #### C BCDF #### [facility] [address] [place] [address] Lymphocytes (Bld) [#/Vol] 2.09 10*3/uL Normal 1.20 - 4.80 [facility] Comment on above: Performed By: #### C BCDF #### [facility] [address] [place] [address] Lymphocytes/100 WBC (Bld) 23.8 % Normal 13.0 - 44.0 [facility] Comment on above: Performed By: #### C BCDF #### [facility] [address] [place] [address] MCHC (RBC) [Mass/Vol] 33.1 g/dL Normal 32.0 - 36.0 [facility] Comment on above: Performed By: #### C BCDF #### [facility] [address] [place] [address] MCV (RBC) [Entitic vol] 89 fL Normal 80 - 100 [facility] Comment on above: Performed By: #### C BCDF #### [facility] [address] [place] [address] Monocytes (Bld) [#/Vol] 0.58 10*3/uL Normal 0.10 - 1.00 [facility] Comment on above: Performed By: #### C BCDF #### [facility] [address] [place] [address] Monocytes/100 WBC (Bld) 6.6 % Normal 2.0 - 10.0 [facility] Comment on above: Performed By: #### C BCDF #### [facility] [address] [place] [address] Neutrophils (Bld) [#/Vol] 5.72 10*3/uL Normal 1.20 - 7.70 [facility] Comment on above: Performed By: #### C BCDF #### [facility] [address] [place] [address] Neutrophils/100 WBC (Bld) 65.2 % Normal 40.0 - 80.0 [facility] Comment on above: Performed By: #### C BCDF #### [facility] [address] [place] [address] NUCLEATED RBC 0.0 /100 WBC Normal 0.0-0.0 [facility] Comment on above: Performed By: #### C BCDF #### [facility] [address] [place] [address] Platelets (Bld) [#/Vol] 408 10*3/uL Normal 150 - 450 [facility] Comment on above: Performed By: #### C BCDF #### [facility] [address] [place] [address] RBC 4.06 x10E12/L Normal 4.00 - 5.20 [facility] Comment on above: Performed By: #### C BCDF #### [facility] [address] [place] [address] WBC (Bld) [#/Vol] 8.8 10*3/uL Normal 4.4 - 11.3 [place] Comment on above: Performed By: #### C BCDF #### [facility] [address] [place] [address] CBC W Auto Differential pane l (Bld)on 06-14-2023 Immature granulocytes/100 WBC (Bld) 0.5 % 0.0 - 0.9 % [facility] Comment on above: Immature Granulocyte Count (IG) includes promyelocytes, myelocytes and metamyelocytes but does not include bands. Percent differential counts (%) should be interpreted in the context of the absolute cell counts (cells/L). Interpretation and review of laboratory results Abnormal [facility] Nucleated RBC/100 WBC (Bld) [Ratio] 0.0 % [facility] [facility] RBC (Bld) [#/Vol] 4.06 10*6/uL [facility] COMPREHENSIVE PANELon 2022 Albumin [Mass/Vol] 4.0 g/dL Normal 3.4 - 5.0 [facility] Comment on above: Performed By: #### C MP #### [facility] [address] [place] [address] ALP [Catalytic activity/Vol] 67 U/L Normal 33 - 110 [facility] Comment on above: Performed By: #### C MP #### [facility] [address] [place] [address] ALT [Catalytic activity/Vol] 34 U/L Normal 7 - 45 [facility] Comment on above: Result Comment: Evelyn ents treated with Sulfasalazine may generate falsely decreased results for ALT. Performed By: #### C MP #### [facility] [address] [place] [address] Anion gap [Moles/Vol] 17 mmol/L Normal 10 - 20 [facility] Comment on above: Performed By: #### C MP #### [facility] [address] [place] [address] AST [Catalytic activity/Vol] 20 U/L Normal 9 - 39 [facility] Comment on above: Performed By: #### C MP #### [facility] [address] [place] [address] Bilirubin [Mass/Vol] 0.4 mg/dL Normal 0.0 - 1.2 [facility] Comment on above: Performed By: #### C MP #### [facility] [address] [place] [address] Calcium [Mass/Vol] 9.0 mg/dL Normal 8.6 - 10.6 [place] Comment on above: Performed By: #### C MP #### [facility] [address] [place] [address] Chloride [Moles/Vol] 102 mmol/L Normal 98 - 107 [facility] Comment on above: Performed By: #### C MP #### [facility] [address] [place] [address] Creatinine [Mass/Vol] 0.61 mg/dL Normal 0.50 - 1.05 [facility] Comment on above: Performed By: #### C MP #### [facility] [address] [place] [address] eGFR FEMALE >90 Normal >90 [facility] Comment on above: Result Comment: CALC ULATIONS OF ESTIMATED GFR ARE PERFORMED USING THE 2020 CKD-EPI STUDY REFIT EQUATION WITHOUT THE RACE VARIABLE FOR THE IDMS-TRACEABLE CREATININE METHODS. https://jasn.asnjournals.org/content/early//ASN.660194 6670 Performed By: #### C MP #### [facility] [address] [place] [address] Glucose [Mass/Vol] 116 mg/dL High 74 - 99 [place] Comment on above: Performed By: #### C MP #### [facility] [address] [place] [address] HCO3 (Bld) [Moles/Vol] 23 mmol/L Normal 21 - 32 [facility] Comment on above: Performed By: #### C MP #### [facility] [address] [place] [address] Potassium [Moles/Vol] 3.9 mmol/L Normal 3.5 - 5.3 [facility] Comment on above: Performed By: #### C MP #### [facility] [address] [place] [address] Protein [Mass/Vol] 6.5 g/dL Normal 6.4 - 8.2 [place] Comment on above: Performed By: #### C MP #### [facility] [address] [place] [address] Sodium [Moles/Vol] 138 mmol/L Normal 136 - 145 [place] Comment on above: Performed By: #### C MP #### [facility] [address] [place] [address] Urea nitrogen [Mass/Vol] 20 mg/dL Normal 6 - 23 [facility] Comment on above: Performed By: #### C MP #### [facility] [address] [facility] [place] [id number] CORONAVIRUS 2019 BY PCRon SARS-CoV-2 (COVID-19) RNA SANNA+probe Ql (Unsp spec) Not detected Normal Not Detected [facility] Comment on above: Result Comment: . This test has received FDA Emergency Use Authorization (EUA) and has been verified by [facility] ([facility]). This test is only authorized for the duration of time that circumstances exist to justify the authorization of the emergency use of in vitro diagnostic tests for the detection of SARS-CoV-2 virus and/or diagnosis of COVID-19 infection under section 564(b)(1) of the Act, 21 U.S.C. 360bbb-3(b)(1), unless the authorization is terminated or revoked sooner. [facility] is certified under CLIA-88 as qualified to perform high complexity testing. Testing is performed in the [facility] located [place] [address] [place] [address]. SARS-CoV-2/Flu/RSV Multiplex Test: Fact sheet for providers: https://www.fda.gov/media/061318/download Fact sheet for patients: https://www.fda.gov/media/367844/download Performed By: #### C OV19 #### [facility] [address] [facility] [place] [address] Lab Specimen Source Nasal, Nasopharyngeal Normal [facility] Comment on above: Performed By: #### C OV19 #### [facility] [address] [place] [address] CT Abdomen and Pelvis with I V [...] [Mass/Vol] 4.0 g/dL 3.4 - 5.0 g/dL [facility] ALT With P-5'-P [Catalytic activity/Vol] 34 U/L 7 - 45 U/L [facility] Comment on above: Patients treated wit h Sulfasalazine may generate falsely decreased results for ALT. AST With P-5'-P [Catalytic activity/Vol] 20 U/L 9 - 39 U/L [facility] CO2 [Moles/Vol] 23 mmol/L 21 - 32 mmol/L [facility] GFR Female >90 - PINF [facility] Comment on above: CALCULATIONS OF ESTUARDO MATED GFR ARE PERFORMED USING THE 2020 CKD-EPI STUDY REFIT EQUATION WITHOUT THE RACE VARIABLE FOR THE IDMS-TRACEABLE CREATININE METHODS. https://jasn.asnjournals.org/content/early//ASN.378627 7498 Interpretation and review of laboratory results Abnormal [facility] Coronavirus 2019 RNA by PCR, Symptomaticon 06-14-2023 Coronavirus 2019 RNA by PCR, Symptomatic Not detected Normal See Below [facility] Work Phone: Comment on above: SOURCE: Nasal, Nasop haryngealReference Range: Not Detected.This test has received FDA Emergency Use Authorization (EUA) and has been verified by [facility] ([facility]). This test is only authorized for the duration of time that circumstances exist to justify the authorization of the emergency use of in vitro diagnostic tests for the detection of SARS-CoV-2 virus and/or diagnosis of COVID-19 infection under section 564(b)(1) of the Act, 21 U.S.C. 360bbb-3(b)(1), unless the authorization is terminated or revoked sooner. [facility] is certified under CLIA-88 as qualified to perform high complexity testing. Testing is performed in the [facility] located at [address] [place] [address].SARS-CoV-2/Flu/RSV Multiplex Test: Fact sheet for providers: https://www.fda.gov/media/454034/downloadFact sheet for patients: https://www.fda.gov/media/720583/download Covid 19 Resultson 3 SARS-CoV-2 (COVID-19) RNA [...] You may also be contacted by the [facility] to see if any of [...] or Naproxen (Aleve) can also be used. Wzfx-dou-pjvhyqj cough and cold medicines can be used according to the instructions on the package. Some xvsy-tpg-dumvqbm medicines also contain acetaminophen. Make sure you [...] water are not available, use alcohol-based hand center maker hand. Avoid touching your eyes, nose, and mouth [...] 24 helio (more content not included)... Normal [facility] Electrocardiogram 12 Leadon 06-14-2023 Electrocardiogram 12 Lead Ventricular Rate 87 Atrial Rate 87 P-R Interval 148 QRS Duration 88 Q-T Interval 378 QTC Calculation(Bazett) 454 P [place] 50 R [place] 6 T [place] 32 QRS Count 14 Q Onset 223 P Onset 149 P Offset 201 T Offset 412 QTC Fredericia 427 Diagnosis Class Unknown Diagnosis Confirmed by Zofia Young ([id number]) on 06/15/2023 2:07:55 AM Normal [facility] LIPASEon 06-14-2023 Lipase [Catalytic activity/Vol] 67 U/L Normal 9 - 82 [facility] Comment on above: Venipuncture immedia tely after or during the administration of Metamizole may lead to falsely low results. Testing should be performed immediately prior to Metamizole dosing. C-xckhic-s-benzoquinone imine (metabolite of Acetaminophen) will generate erroneously low results in samples for patients that have taken toxic doses of acetaminophen. Result Comment: Samreen puncture immediately after or during the administration of Metamizole may lead to falsely low results. Testing should be performed immediately prior to Metamizole dosing. N-kehndm-n-benzoquinone imine (metabolite of Acetaminophen) will generate erroneously low results in samples for patients that have taken toxic doses of acetaminophen. Performed By: #### L IPAS #### [facility] [address] [place] [address] LIPASE Canceled Normal [facility] Comment on above: Order Comment: TEST LIPASE WAS CANCELLED, 06/14/2023 20:29 DUPLICATE ORDER. Result Comment: Samreen puncture immediately after or during the administration of Metamizole may lead to falsely low results. Testing should be performed immediately prior to Metamizole dosing. Performed By: #### L IPAS #### [facility] [address] [place] [id number] Laboratory - Chemistry and C hemistry - [...] mg/dL See Below [facility] Work Phone: Comment on above: Reference Range: 0.5 0 - 1.05 Glucose [Mass/Vol] 116 mg/dL above high threshold 74 - 99 [facility] Work Phone: Potassium [Moles/Vol] 3.9 mmol/L 3.5 - 5.3 [facility] Work Phone: Protein [Mass/Vol] 6.5 g/dL 6.4 - 8.2 [facility] Work Phone: Sodium [Moles/Vol] 138 mmol/L 136 - 145 [facility] Work Phone: Urea nitrogen [Mass/Vol] 20 mg/dL 6 - 23 [facility] Work Phone: Lipaseon 06-14-2023 Lipase [Catalytic activity/Vol] CANCELED [facility] Comment on above: Venipuncture immedia tely after or during the administration of Metamizole may lead to falsely low results. Testing should be performed immediately prior to Metamizole dosing. Result canceled by the ancillary. Lipase [Catalytic activity/V ol]on 06-14-2023 [facility] Lipase, Serumon 06-14-2023 Lipase [Catalytic activity/Vol] 67 U/L 9 - 82 [facility] Work Phone: Comment on above: Venipuncture immedia tely after or during the administration of Metamizole may lead to falsely low results. Testing should be performed immediately prior to Metamizole dosing. H-rmyumn-q-benzoquinone imine (metabolite of Acetaminophen) will generate erroneously low results in samples for patients that have taken toxic doses of acetaminophen. Lipase [Catalytic activity/Vol] Canceled [facility] Work Phone: Comment on above: Venipuncture immedia tely after or during the administration of Metamizole may lead to falsely low results. Testing should be performed immediately prior to Metamizole dosing. No Panel Informationon 06-14 [facility] [email or web address]?[email or web address] teTime?[email or web address]&Date=14-06-2023&Johnathan e=[email or web address]&Peggy tType=ECG&Site=1&Output Type=PDF&Ext=PDF [facility] [...] RACE VARIABLE FOR THE IDMS-TRACEABLE CREATININE METHODS.https://jasn.asnjournals.org/content/early/ N.4330069620 Provider Note - ED Care Castellanos jessica [...] agrees with the plan. Patient and/or patients career representative was counseled regarding labs, imaging, likely [...] Updated: 15-Jun-2023 02:50 by Camilo Larios) Normal [facility] Provider Note - ED v3on 09-2 Provider [...] day D (more content not included)... Normal [facility] SARS-CoV-2 (COVID-19) RNA NA A+probe Ql (Resp)on 06-14-2023 SARS-related CoV RNA SANNA+probe Ql (Resp) Not detected Not Detected [facility] Comment on above: . This test has received FDA Emergency Use Authorization (EUA) and has been verified by [facility] ([facility]). This test is only authorized for the duration of time that circumstances exist to justify the authorization of the emergency use of in vitro diagnostic tests for the detection of SARS-CoV-2 virus and/or diagnosis of COVID-19 infection under section 564(b)(1) of the Act, 21 U.S.C. 360bbb-3(b)(1), unless the authorization is terminated or revoked sooner. [facility] is certified under CLIA-88 as qualified to perform high complexity testing. Testing is performed in the [facility] located at [address] [place] [address]. SARS-CoV-2/Flu/RSV Multiplex Test: Fact sheet for providers: https://www.fda.gov/media/699057/download Fact sheet for patients: https://www.fda.gov/media/023902/download [facility] .Auto Diffon 06-03-2023 Basophil, Absolute 0.1 10 3/mcL Normal 0.0-0.2 [facility] ([place]) Comment on above: Performed By: #### U A, PREGU #### [facility] [address] [place], [place] [address] Basophils/100 WBC (Bld) 1.0 % Normal 0.0-2.5 [facility] ([place]) Comment on above: Performed By: #### U A, PREGU #### [facility] [address] [place], [place] [address] Eosinophil, Absolute 0.3 10 3/mcL Normal 0.0-0.4 [facility] ([place]) Comment on above: Performed By: #### U A, PREGU #### [facility] [address] [place], [place] [address] Eosinophils/100 WBC (Bld) 2.5 % Normal 0.0-7.0 [facility] ([place]) Comment on above: Performed By: #### U A, PREGU #### Sean Loaizan [address] [place], [place] [address] Lymphocyte, Absolute 2.0 10 3/mcL Normal 0.8-3.9 [facility] ([place]) Comment on above: Performed By: #### U A, PREGU #### Sean Loaizan [address] [place], [place] [address] Lymphocytes/100 WBC (Bld) 20.1 % Normal 10.0-50.0 [facility] ([place]) Comment on above: Performed By: #### U A, PREGU #### [facility] [address] [place], [place] [address] Monocyte, Absolute 0.5 10 3/mcL Normal 0.2-1.0 [facility] ([place]) Comment on above: Performed By: #### U A, PREGU #### Sean Loaizan [address] [place], [place] [address] Monocytes/100 WBC (Bld) 5.3 % Normal 1.7-13.0 [facility] ([place]) Comment on above: Performed By: #### U A, PREGU #### Sean Loaizan [address] [place], [place] [address] Neutrophils/100 WBC (Bld) 71.1 % Normal 37.0-80.0 [facility] ([place]) Comment on above: Performed By: #### U A, PREGU #### Sean Loaizan [address] [place], [place] [address] .GFRon 06-03-2023 GFR 80 ml/min/1.73sqm Normal [facility] ([place]) Comment on above: Result Comment: GFR [...] By: #### U A, PREGU #### [facility] [address] [place], [place] [address] GFR Non- 66 ml/min/1.73sqm Normal [facility] ([place]) Comment on above: Result Comment: GFR Population [...] Performed By: #### U A, PREGU #### [facility] [address] [place], [place] [address] .MDWon 06-03-2023 Monocyte Distribution Width 21.63 High 0.00-20.00 [facility] ([place]) Comment on above: Result Comment: For adults in ED, MDW>20.0 may be associated with a higher risk of sepsis during the first 12hrs of hospital admission Performed By: #### U A, PREGU #### [facility] [address] [place], [place] [address] .NEUABSon 06-03-2023 Neutrophil, Absolute 7.2 10 3/mcL High 2.9-6.2 [facility] ([place]) Comment on above: Performed By: #### U A, PREGU #### Sean Venus [address] [place], [place] [address] CBCon 06-03-2023 Erythrocyte distribution width (RBC) [Ratio] 14.3 % Normal 11.5-14.5 [facility] ([place]) Comment on above: Performed By: #### U A, PREGU #### Sean Venus [address] [place], [place] [address] Hematocrit (Bld) [Volume fraction] 39.1 % Normal 37.0-47.0 [facility] ([place]) Comment on above: Performed By: #### U A, PREGU #### [facility] [address] [place], [place] [address] Hgb 13.2 G/dL Normal 12.0-16.0 [facility] ([place]) Comment on above: Performed By: #### U A, PREGU #### [facility] [address] [place], [place] [address] MCH (RBC) [Entitic mass] 29.9 pg Normal 27.0-31.2 [facility] ([place]) Comment on above: Performed By: #### U A, PREGU #### [facility] [address] [place] [address] MCHC 33.7 G/dL Normal 33.0-37.0 [facility] ([place]) Comment on above: Performed By: #### U A, PREGU #### [facility] [address] [place] [address] MCV (RBC) [Entitic vol] 88.8 fL Normal 80.0-94.0 [facility] ([place]) Comment on above: Performed By: #### U A, PREGU #### [facility] [address] [place], [place] [address] Platelet 441 10 3/mcL High 130-400 [facility] ([place]) Comment on above: Performed By: #### U A, PREGU #### [facility] [address] [place], [place] [address] Platelet mean volume (Bld) [Entitic vol] 6.3 fL Low 7.4-10.4 [facility] ([place]) Comment on above: Performed By: #### U A, PREGU #### [facility] [address] [place], [place] [address] RBC 4.41 10 6/mcL Normal 4.20-5.40 [facility] ([place]) Comment on above: Performed By: #### U A, PREGU #### Sean Reynolds [address] [place], [place] [address] WBC 10.1 10 3/mcL Normal 4.6-10.8 [facility] ([place]) Comment on above: Performed By: #### U A, PREGU #### Sean Loaizan [address] [place], [place] [address] CMPon 06-03-2023 Albumin Level 4.1 G/dL Normal 3.5-5.0 [facility] ([place]) Comment on above: Performed By: #### U A, PREGU #### Sean Reynolds [address] [place], [place] [address] Albumin/Globulin [Mass ratio] 1.0 {ratio} Low 1.1-2.5 [facility] ([place]) Comment on above: Performed By: #### U A, PREGU #### Sean Loaizan [address] [place], [place] [address] ALP [Catalytic activity/Vol] 96 U/L Normal 40-135 [facility] ([place]) Comment on above: Performed By: #### U A, PREGU #### Sean Loaizan [address] [place], [place] [address] ALT [Catalytic activity/Vol] 103 U/L High 14-59 [facility] ([place]) Comment on above: Performed By: #### U A, PREGU #### Sean Loaizan [address] [place], [place] [address] AST [Catalytic activity/Vol] 61 U/L High 10-40 [facility] ([place]) Comment on above: Performed By: #### U A, PREGU #### Sean Loaizan [address] [place], [place] [address] Bili Total 0.3 mg/dL Normal 0.2-1.0 [facility] ([place]) Comment on above: Result Comment: Use of this assay is not recommended for patients undergoing treatment with eltrombopag due to the potential for falsely elevated results. Performed By: #### U A, PREGU #### Sean Venus [address] [place], [place] [address] BUN/Creatinine Ratio 23 ratio Normal 7-27 [facility] ([place]) Comment on above: Performed By: #### U A, PREGU #### [facility] [address] [place], [place] [address] Calcium [Mass/Vol] 9.0 mg/dL Normal 8.4-10.2 [facility] ([place]) Comment on above: Performed By: #### U A, PREGU #### [facility] [address] [place], [place] [address] Chloride [Moles/Vol] 99 mmol/L Normal 98-107 [facility] ([place]) Comment on above: Performed By: #### U A, PREGU #### [facility] [address] [place], [place] [address] CO2 [Moles/Vol] 24 mmol/L Normal 22-29 [facility] ([place]) Comment on above: Performed By: #### U A, PREGU #### [facility] [address] [place], [place] [address] Creatinine [Mass/Vol] 0.91 mg/dL Normal 0.55-1.02 [facility] ([place]) Comment on above: Performed By: #### U A, PREGU #### [facility] [address] [place], [place] [address] Electrolyte Balance 13.0 mEq/L Normal 4.0-15.0 [facility] ([place]) Comment on above: Performed By: #### U A, PREGU #### [facility] [address] [place], [place] [address] Globulin 4.1 G/dL Normal [facility] ([place]) Comment on above: Performed By: #### U A, PREGU #### [facility] [address] [place], [place] [address] Glucose [Mass/Vol] 180 mg/dL High 70-105 [facility] ([place]) Comment on above: Performed By: #### U A, PREGU #### Seanoz Loaizan [address] [place], [place] [address] Potassium [Moles/Vol] 4.0 mmol/L Normal 3.5-5.1 [facility] ([place]) Comment on above: Performed By: #### U A, PREGU #### [facility] [address] [place], [place] [address] Sodium [Moles/Vol] 136 mmol/L Normal 136-145 [facility] ([place]) Comment on above: Performed By: #### U A, PREGU #### Sean Venus [address] [place], [place] [address] Total Protein 8.2 G/dL Normal 6.4-8.2 [facility] ([place]) Comment on above: Performed By: #### U A, PREGU #### [facility] [address] [place], [place] [address] Urea nitrogen [Mass/Vol] 21 mg/dL High 7-18 [facility] ([place]) Comment on above: Performed By: #### U A, PREGU #### [facility] [address] [place], [place] [address] LABORATORYOrdered By: SYSTEM SYSTEM on 06-03-2023 Albumin [...] 06-03-2023 Lipase Level 58 U/L Normal 16-77 [facility] ([place]) Comment on above: Performed By: #### U A, PREGU #### [facility] [address] [place], [place] [address] UAon 06-03-2023 Color (U) Yellow Normal [facility] ([place]) Comment on above: Performed By: #### A DIFF, ANEU, CMP, MG, GFR, LD, CRP, CBC, ESR #### [address] [address] Glucose (U) [Mass/Vol] Negative Normal Negative [facility] ([place]) Comment on above: Performed By: #### A DIFF, ANEU, CMP, MG, GFR, LD, CRP, CBC, ESR #### [address] [address] Ketones Ql (U) Negative Normal Negative [facility] ([place]) Comment on above: Performed By: #### A DIFF, ANEU, CMP, MG, GFR, LD, CRP, CBC, ESR #### [address] [address] UA Appear Clear Normal Clear [facility] ([place]) Comment on above: Performed By: #### A DIFF, ANEU, CMP, MG, GFR, LD, CRP, CBC, ESR #### [address] [address] UA Blood Negative Normal Negative [facility] ([place]) Comment on above: Performed By: #### A DIFF, ANEU, CMP, MG, GFR, LD, CRP, CBC, ESR #### [address] [address] UA Leuk Est Negative Normal Negative [facility] ([place]) Comment on above: Performed By: #### A DIFF, ANEU, CMP, MG, GFR, LD, CRP, CBC, ESR #### [address] [address] UA Nitrite Negative Normal Negative [facility] ([place]) Comment on above: Performed By: #### A DIFF, ANEU, CMP, MG, GFR, LD, CRP, CBC, ESR #### [address] [address] UA pH 6.0 Normal 5.0 - 8.0 [facility] ([place]) Comment on above: Performed By: #### A DIFF, ANEU, CMP, MG, GFR, LD, CRP, CBC, ESR #### [address] [address] UA Protein Negative Normal Negative [facility] ([place]) Comment on above: Performed By: #### A DIFF, ANEU, CMP, MG, GFR, LD, CRP, CBC, ESR #### [address] [address] UA Spec Grav 1.025 Normal 1.015-1.025 [facility] ([place]) Comment on above: Performed By: #### A DIFF, ANEU, CMP, MG, GFR, LD, CRP, CBC, ESR #### [address] [address] UA Specimen Type Clean Catch Normal [facility] ([place]) Comment on above: Performed By: #### A DIFF, ANEU, CMP, MG, GFR, LD, CRP, CBC, ESR #### [address] [address] UA Urobilinogen 0.2 E.U./dL Normal 0.2-1.0 [facility]) Comment on above: Performed By: #### A DIFF, ANEU, CMP, MG, GFR, LD, CRP, CBC, ESR #### [place] [address] [place], [place] [address] Urobilinogen (U) [Mass/Vol] Negative Normal Negative [facility] ([place]) Comment on above: Performed By: #### A DIFF, ANEU, CMP, MG, GFR, LD, CRP, CBC, ESR #### [place] [address] [place], [place] [address] Initial Visit (Pain Medicine )on 05-25-2023 Initial [...] likely emerg (more content not included)... Normal [employer] Tobacco Screening.on 023 Fall risk assessment a) No falls within the last year [facility] Work Phone: Tobacco use status [facility] a) Yes [facility] Work Phone: .Auto Diffon 05-23-2023 Basophil, Absolute 0.0 10 3/mcL Normal 0.0-0.2 [facility] [facility] Comment on above: Performed By: #### U A, PREGU #### [facility] [address] [place], [place] [address] Basophils/100 WBC (Bld) 0.4 % Normal 0.0-2.5 [facility] ([place]) Comment on above: Performed By: #### U A, PREGU #### [facility] [address] [place], [place] [address] Eosinophil, Absolute 0.2 10 3/mcL Normal 0.0-0.4 [facility] ([place]) Comment on above: Performed By: #### U A, PREGU #### [facility] [address] [place], [place] [address] Eosinophils/100 WBC (Bld) 2.6 % Normal 0.0-7.0 [facility] ([place]) Comment on above: Performed By: #### U A, PREGU #### Sean [facility]aizan [address] [place], [place] [address] Lymphocyte, Absolute 2.1 10 3/mcL Normal 0.8-3.9 [facility] ([place]) Comment on above: Performed By: #### U A, PREGU #### Sean Loaizan [address] [place], [place] [address] Lymphocytes/100 WBC (Bld) 20.1 % Normal 10.0-50.0 [facility] ([place]) Comment on above: Performed By: #### U A, PREGU #### Sean Loaizan [address] [place], [place] [address] Monocyte, Absolute 0.5 10 3/mcL Normal 0.2-1.0 [facility] ([place]) Comment on above: Performed By: #### U A, PREGU #### Sean [facility] [address] [place], [place] [address] Monocytes/100 WBC (Bld) 5.1 % Normal 1.7-13.0 [facility] ([place]) Comment on above: Performed By: #### U A, PREGU #### Sean [facility]aizan [address] [place], [place] [address] Neutrophils/100 WBC (Bld) 71.6 % Normal 37.0-80.0 [facility] ([place]) Comment on above: Performed By: #### U A, PREGU #### [facility] [address] [place], [place] [address] .GFRon 05-23-2023 GFR 73 ml/min/1.73sqm Normal [facility] ([place]) Comment on above: Result Comment: GFR [...] By: #### U A, PREGU #### [facility] [address] [place], [place] [address] GFR Non- 61 ml/min/1.73sqm Normal [facility] ([place]) Comment on above: Result Comment: GFR Population [...] By: #### U A, PREGU #### Sean [facility] [address] [place], [place] [address] .MDWon 05-23-2023 Monocyte Distribution Width Not tested Normal 0.00-20.00 [facility] ([place]) Comment on above: Result Comment: MDW testing unable to be performed on [id number] instrumentation. Performed By: #### U A, PREGU #### Sean Venus [address] [place], [place] [address] .NEUABSon 05-23-2023 Neutrophil, Absolute 7.5 10 3/mcL High 2.9-6.2 [facility] ([place]) Comment on above: Performed By: #### U A, PREGU #### Sean [facility] [address] [place], [place] [address] CBCon 05-23-2023 Erythrocyte distribution width (RBC) [Ratio] 12.8 % Normal 11.5-14.5 [facility] ([place] Comment on above: Performed By: #### U A, PREGU #### Seanoz [facility]aizan [address] [place], [place] [address] Hematocrit (Bld) [Volume fraction] 39.4 % Normal 37.0-47.0 [facility] ([place] Comment on above: Performed By: #### U A, PREGU #### Sean Venus [address] [place], [place] [address] Hgb 13.4 G/dL Normal 12.0-16.0 [facility] ([place] Comment on above: Performed By: #### U A, PREGU #### [facility] [address] [place], [place] [address] MCH (RBC) [Entitic mass] 30.5 pg Normal 27.0-31.2 [facility] ([place] Comment on above: Performed By: #### U A, PREGU #### [facility] [address] [place], [place] [address] MCHC 34.1 G/dL Normal 33.0-37.0 [facility] ([place] Comment on above: Performed By: #### U A, PREGU #### [facility] [address] [place], [place] [address] MCV (RBC) [Entitic vol] 89.5 fL Normal 80.0-94.0 [facility] ([place] Comment on above: Performed By: #### U A, PREGU #### [facility] [address] [place], [place] [address] Platelet 425 10 3/mcL High 130-400 [facility] ([place]) Comment on above: Performed By: #### U A, PREGU #### [facility] [address] [place], [place] [address] Platelet mean volume (Bld) [Entitic vol] 6.2 fL Low 7.4-10.4 [facility] ([place]) Comment on above: Performed By: #### U A, PREGU #### [facility] [address] [place], [place] [address] RBC 4.40 10 6/mcL Normal 4.20-5.40 [facility] ([place]) Comment on above: Performed By: #### U A, PREGU #### Sean Reynolds [address] [place], [place] [address] WBC 10.4 10 3/mcL Normal 4.6-10.8 [facility] ([place]) Comment on above: Performed By: #### U A, PREGU #### Sean Reynolds [address] [place], [place] [address] CMPon 05-23-2023 Albumin Level 3.8 G/dL Normal 3.5-5.0 [facility] ([place]) Comment on above: Performed By: #### U A, PREGU #### Sean Loaizan [address] [place], [place] [address] Albumin/Globulin [Mass ratio] 1.1 {ratio} Normal 1.1-2.5 [facility] ([place] Comment on above: Performed By: #### U A, PREGU #### Sean Loaizan [address] [place], [place] [address] ALP [Catalytic activity/Vol] 91 U/L Normal 40-135 [facility] ([place] Comment on above: Performed By: #### U A, PREGU #### Sean Loaizan [address] [place], [place] [address] ALT [Catalytic activity/Vol] 53 U/L Normal 14-59 [facility] ([place] Comment on above: Performed By: #### U A, PREGU #### Sean Loaizan [address] [place], [place] [address] AST [Catalytic activity/Vol] 33 U/L Normal 10-40 [facility] ([place]) Comment on above: Performed By: #### U A, PREGU #### Sean Loaizan [address] [place], [place] [address] Bili Total 0.2 mg/dL Normal 0.2-1.0 [facility] ([place]) Comment on above: Result Comment: Use of this assay is not recommended for patients undergoing treatment with eltrombopag due to the potential for falsely elevated results. Performed By: #### U A, PREGU #### [facility] [address] [place], [place] [address] BUN/Creatinine Ratio 14 ratio Normal 7-27 [facility] ([place]) Comment on above: Performed By: #### U A, PREGU #### [facility] [address] [place], [place] [address] Calcium [Mass/Vol] 9.1 mg/dL Normal 8.4-10.2 [facility] ([place]) Comment on above: Performed By: #### U A, PREGU #### [facility] [address] [place], [place] [address] Chloride [Moles/Vol] 100 mmol/L Normal 98-107 [facility] ([place]) Comment on above: Performed By: #### U A, PREGU #### [facility] [address] [place], [place] [address] CO2 [Moles/Vol] 27 mmol/L Normal 22-29 [facility] ([place]) Comment on above: Performed By: #### U A, PREGU #### [facility] [address] [place], [place] [address] Creatinine [Mass/Vol] 0.98 mg/dL Normal 0.55-1.02 [facility] ([place]) Comment on above: Performed By: #### U A, PREGU #### [facility] [address] [place], [place] [address] Electrolyte Balance 9.0 mEq/L Normal 4.0-15.0 [facility] [place]) Comment on above: Performed By: #### U A, PREGU #### [facility] [address] [place], [place] [address] Globulin 3.5 G/dL Normal [facility] ([place]) Comment on above: Performed By: #### U A, PREGU #### [facility] [address] [place], [place] [address] Glucose [Mass/Vol] 136 mg/dL High 70-105 [facility] ([place]) Comment on above: Performed By: #### U A, PREGU #### [facility] [address] [place], [place] [address] Potassium [Moles/Vol] 3.9 mmol/L Normal 3.5-5.1 [facility] ([place]) Comment on above: Performed By: #### U A, PREGU #### [facility] [address] [place], [place] [address] Sodium [Moles/Vol] 136 mmol/L Normal 136-145 [facility] ([place]) Comment on above: Performed By: #### U A, PREGU #### [facility] [address] [place], [place] [address] Total Protein 7.3 G/dL Normal 6.4-8.2 [facility] ([place]) Comment on above: Performed By: #### U A, PREGU #### [facility] [address] [place], [place] [address] Urea nitrogen [Mass/Vol] 14 mg/dL Normal 7-18 [facility] ([place]) Comment on above: Performed By: #### U A, PREGU #### [facility] [address] [place], [place] [address] LABORATORYOrdered By: Kiarra Jacobo on 05-23-2023 Appearance [...] MDW testing unable to be performed on [id number] instrumentation. LABORATORYOrdered By: SYSTEM SYSTEM on 05-23-2023 [...] 05-23-2023 Lipase Level 130 U/L High 16- [facility] ([place]) Comment on above: Performed By: #### U A, PREGU #### Sean Venus [address] [place], [place] [address] PREGUon 05-23-2023 HCG ( test) Ql (U) Negative Normal [facility] ([place]) Comment on above: Performed By: #### U A, PREGU #### [facility] [address] [place], [place] [address] test (u) int Not detected Invalid Interpretation Code [facility] ([place]) Comment on above: Performed By: #### U A, PREGU #### Sean Venus [address] [place], [place] [address] UAon 05-23-2023 Color (U) Yellow Normal [facility] ([place]) Comment on above: Performed By: #### U A, PREGU #### [facility] [address] [place], [place] [address] Glucose (U) [Mass/Vol] Negative Normal Negative [facility] ([place]) Comment on above: Performed By: #### U A, PREGU #### Sean Venus [address] [place], [place] [address] Ketones Ql (U) Negative Normal Negative [facility] ([place]) Comment on above: Performed By: #### U A, PREGU #### Sean Davisillon [address] [place], [place] [address] UA Appear Clear Normal Clear [facility] ([place] Comment on above: Performed By: #### U A, PREGU #### Sean Davisillon [address] [place], [place] [address] UA Blood Negative Normal Negative [facility] ([place] Comment on above: Performed By: #### U A, PREGU #### Sean Davisillon [address] [place], [place] [address] UA Leuk Est Negative Normal Negative [facility] ([place]) Comment on above: Performed By: #### U A, PREGU #### Sean Davisillon [address] [place], [place] [address] UA Nitrite Negative Normal Negative [facility] ([place]) Comment on above: Performed By: #### U A, PREGU #### Sean Davisillon [address] [place], [place] [address] UA pH 7.0 Normal 5.0 - 8.0 [facility] ([place] Comment on above: Performed By: #### U A, PREGU #### Sean Davisillon [address] [place], [place] [address] UA Protein Negative Normal Negative [facility] ([place]) Comment on above: Performed By: #### U A, PREGU #### Sean Davisillon [address] [place], [place] [address] UA Spec Grav 1.015 Normal 1.015-1.025 [facility] ([place]) Comment on above: Performed By: #### U A, PREGU #### Sean Davisillon [address] [place], [place] [address] UA Specimen Type Void Normal [facility] ([place] Comment on above: Performed By: #### U A, PREGU #### Sean Davisillon [address] [place], [place] [address] UA Urobilinogen 0.2 E.U./dL Normal 0.2-1.0 [facility] ([place]) Comment on above: Performed By: #### U A, PREGU #### [facility] [address] [place], [place] [address] Urobilinogen (U) [Mass/Vol] Negative Normal Negative [facility] ([place]) Comment on above: Performed By: #### U A, PREGU #### [facility] [address] [place], [place] [address] .Auto Diffon 05-19-2023 Basophil, Absolute 0.1 10 3/mcL Normal 0.0-0.2 [facility] ([place]) Comment on above: Performed By: #### A DIFF, ANEU, CMP, MG, GFR, LD, CRP, CBC, ESR #### [address] [address] Basophils/100 WBC (Bld) 1.1 % Normal 0.0-2.5 [facility] ([place]) Comment on above: Performed By: #### A DIFF, ANEU, CMP, MG, GFR, LD, CRP, CBC, ESR #### [address] [address] Eosinophil, Absolute 0.2 10 3/mcL Normal 0.0-0.4 [facility] ([place]) Comment on above: Performed By: #### A DIFF, ANEU, CMP, MG, GFR, LD, CRP, CBC, ESR #### [address] [address] Eosinophils/100 WBC (Bld) 1.5 % Normal 0.0-7.0 [facility] ([place]) Comment on above: Performed By: #### A DIFF, ANEU, CMP, MG, GFR, LD, CRP, CBC, ESR #### [address] [address] Lymphocyte, Absolute 2.2 10 3/mcL Normal 0.8-3.9 [facility] ([place]) Comment on above: Performed By: #### A DIFF, ANEU, CMP, MG, GFR, LD, CRP, CBC, ESR #### [address] [address] Lymphocytes/100 WBC (Bld) 17.0 % Normal 10.0-50.0 [facility] ([place] Comment on above: Performed By: #### A DIFF, ANEU, CMP, MG, GFR, LD, CRP, CBC, ESR #### [address] [address] Monocyte, Absolute 0.8 10 3/mcL Normal 0.2-1.0 [facility] ([place]) Comment on above: Performed By: #### A DIFF, ANEU, CMP, MG, GFR, LD, CRP, CBC, ESR #### [address] [address] Monocytes/100 WBC (Bld) 6.4 % Normal 1.7-13.0 [facility] ([place] Comment on above: Performed By: #### A DIFF, ANEU, CMP, MG, GFR, LD, CRP, CBC, ESR #### [address] [address] Neutrophils/100 WBC (Bld) 74.0 % Normal 37.0-80.0 [facility] ([place]) Comment on above: Performed By: #### A DIFF, ANEU, CMP, MG, GFR, LD, CRP, CBC, ESR #### [address] [address] .GFRon 05-19-2023 GFR Non- 54 ml/min/1.73sqm Normal [facility] ([place]) Comment on above: Result Comment: GFR Population [...] Performed By: #### U A, PREGU #### [facility] [address] [place], [place] [address] GFR 65 ml/min/1.73sqm Normal [facility] ([place]) Comment on above: Result Comment: GFR Population [...] Performed By: #### U Abigail PREGU #### [facility] [address] [place], [place] [address] .MDWon 05-19-2023 Monocyte Distribution Width 17.04 Normal 0.00-20.00 [facility] ([place]) Comment on above: Result Comment: For ED adult patients suspected of sepsis, MDW<=20.0 does not rule out sepsis or risk of sepsis Performed By: #### A DIFF, ANEU, CMP, MG, GFR, LD, CRP, CBC, ESR #### Sean [address] [address] .Morphon 05-19-2023 Platelet Estimate Increased Normal [facility] ([place]) Comment on above: Performed By: #### A DIFF, ANEU, CMP, MG, GFR, LD, CRP, CBC, ESR #### [address] [address] .NEUABSon 05-19-2023 Neutrophil, Absolute 9.4 10 3/mcL High 2.9-6.2 [facility] ([place]) Comment on above: Performed By: #### A DIFF, ANEU, CMP, MG, GFR, LD, CRP, CBC, ESR #### [address] [address] .Urinalysis Microscopic (AO) on 05-19-2023 UA Bacteria Trace Abnormal [facility] ([place]) Comment on above: Performed By: #### U A, PREGU #### Sean Venus [address] [place], [place] [address] UA RBC 0-5 Abnormal None Seen [facility] ([place] Comment on above: Performed By: #### U A, PREGU #### Sean Venus [address] [place], [place] [address] UA Squam Epithelial 0-5 Abnormal None Seen [facility] [place] Comment [place]: Performed By: #### U A, PREGU #### [facility] [address] [place], [place] [address] UA WBC LOADED Abnormal None Seen [facility] ([place]) Comment on above: Performed By: #### U A, PREGU #### Sean Venus [address] [place], [place] [address] CBCon 05-19-2023 Erythrocyte distribution width (RBC) [Ratio] 13.7 % Normal 11.5-14.5 [facility] ([place]) Comment on above: Performed By: #### A DIFF, ANEU, CMP, MG, GFR, LD, CRP, CBC, ESR #### [address] [address] Hematocrit (Bld) [Volume fraction] 40.0 % Normal 37.0-47.0 [facility] ([place] Comment on above: Performed By: #### A DIFF, ANEU, CMP, MG, GFR, LD, CRP, CBC, ESR #### [address] [address] Hgb 13.4 G/dL Normal 12.0-16.0 [facility] ([place] Comment on above: Performed By: #### A DIFF, ANEU, CMP, MG, GFR, LD, CRP, CBC, ESR #### [address] [address] MCH (RBC) [Entitic mass] 29.8 pg Normal 27.0-31.2 [facility] ([place] Comment on above: Performed By: #### A DIFF, ANEU, CMP, MG, GFR, LD, CRP, CBC, ESR #### [address] [address] MCHC 33.5 G/dL Normal 33.0-37.0 [facility] ([place] Comment on above: Performed By: #### A DIFF, ANEU, CMP, MG, GFR, LD, CRP, CBC, ESR #### [address] [address] MCV (RBC) [Entitic vol] 89.0 fL Normal 80.0-94.0 [facility] ([place] Comment on above: Performed By: #### A DIFF, ANEU, CMP, MG, GFR, LD, CRP, CBC, ESR #### [address] [address] Platelet 498 10 3/mcL High 130-400 [facility] ([place]) Comment on above: Performed By: #### A DIFF, ANEU, CMP, MG, GFR, LD, CRP, CBC, ESR #### [address] [address] Platelet mean volume (Bld) [Entitic vol] 6.1 fL Low 7.4-10.4 [facility] ([place]) Comment on above: Performed By: #### A DIFF, ANEU, CMP, MG, GFR, LD, CRP, CBC, ESR #### [address] [address] RBC 4.49 10 6/mcL Normal 4.20-5.40 [facility] ([place]) Comment on above: Performed By: #### A DIFF, ANEU, CMP, MG, GFR, LD, CRP, CBC, ESR #### [address] [address] WBC 12.7 10 3/mcL High 4.6-10.8 [facility] ([place]) Comment on above: Performed By: #### A DIFF, ANEU, CMP, MG, GFR, LD, CRP, CBC, ESR #### Sean [id number] [place], [place] [address] CMPon 05-19-2023 Albumin Level 3.7 G/dL Normal 3.5-5.0 [facility] ([place]) Comment on above: Performed By: #### U A, PREGU #### [facility] [address] [place], [place] [address] Albumin/Globulin [Mass ratio] 1.0 {ratio} Low 1.1-2.5 [facility] ([place]) Comment on above: Performed By: #### U A, PREGU #### [facility] [address] [place], [place] [address] ALP [Catalytic activity/Vol] 100 U/L Normal 40-135 [facility] ([place]) Comment on above: Performed By: #### U A, PREGU #### [facility] [address] [place], [place] [address] ALT [Catalytic activity/Vol] 58 U/L Normal 14-59 [facility] ([place] Comment on above: Performed By: #### U A, PREGU #### [facility] [address] [place], [place] [address] AST [Catalytic activity/Vol] 27 U/L Normal 10-40 [facility] ([place] Comment on above: Performed By: #### U A, PREGU #### [facility] [address] [place], [place] [address] Bili Total 0.2 mg/dL Normal 0.2-1.0 [facility] ([place]) Comment on above: Result Comment: Use of this assay is not recommended for patients undergoing treatment with eltrombopag due to the potential for falsely elevated results. Performed By: #### U A, PREGU #### [facility] [address] [place], [place] [address] BUN/Creatinine Ratio 16 ratio Normal 7-27 [facility] ([place]) Comment on above: Performed By: #### U A, PREGU #### [facility] [address] [place], [place] [address] Calcium [Mass/Vol] 9.1 mg/dL Normal 8.4-10.2 [facility] ([place]) Comment on above: Performed By: #### U A, PREGU #### Seanoz Loaizan [address], [place] [address] Chloride [Moles/Vol] 100 mmol/L Normal 98-107 [facility] ([place]) Comment on above: Performed By: #### U A, PREGU #### Seanoz Loaizan [address] [place], [place] [address] CO2 [Moles/Vol] 27 mmol/L Normal 22-29 [facility] ([place]) Comment on above: Performed By: #### U A, PREGU #### Sean Venus [address] [place], [place] [address] Creatinine [Mass/Vol] 1.09 mg/dL High 0.55-1.02 [facility] ([place]) Comment on above: Performed By: #### U A, PREGU #### Seanoz Loaizan [address] [place], [place] [address] Electrolyte Balance 12.0 mEq/L Normal 4.0-15.0 [facility] [place] Comment on above: Performed By: #### U A, PREGU #### Sean Venus [address] [place], [place] [address] Globulin 3.8 G/dL Normal [facility] ([place]) Comment on above: Performed By: #### U A, PREGU #### Seanoz Loaizan [address] [place], [place] [address] Glucose [Mass/Vol] 117 mg/dL High 70-105 [facility] ([place]) Comment on above: Performed By: #### U A, PREGU #### Sean Venus [address] [place], [place] [address] Potassium [Moles/Vol] 4.3 mmol/L Normal 3.5-5.1 [facility] ([place]) Comment on above: Performed By: #### U A, PREGU #### Sean Venus [address] [place], [place] [address] Sodium [Moles/Vol] 139 mmol/L Normal 136-145 [facility] ([place]) Comment on above: Performed By: #### U A, PREGU #### Sean Venus [address] [place], [place] [address] Total Protein 7.5 G/dL Normal 6.4-8.2 [facility] ([place]) Comment on above: Performed By: #### U A, PREGU #### Sean Venus [address] [place], [place] [address] Urea nitrogen [Mass/Vol] 17 mg/dL Normal 7-18 [facility] ([place] Comment on above: Performed By: #### U A, PREGU #### Sean Venus [address] [place], [place] [address] LABORATORYOrdered By: SYSTEM SYSTEM on 05-19-2023 Albumin [...] 05-19-2023 Lipase Level 104 U/L High 16-77 [facility] ([place]) Comment on above: Performed By: #### A DIFF, ANEU, CMP, MG, GFR, LD, CRP, CBC, ESR #### [address] [address] UAon 05-19-2023 Color (U) Yellow Normal [facility] ([place]) Comment on above: Performed By: #### U A, PREGU #### [facility] [address] [place], [place] [address] Glucose (U) [Mass/Vol] Negative Normal Negative [facility] ([place] Comment on above: Performed By: #### U A, PREGU #### [facility] [address] [place], [place] [address] UA Appear Clear Normal Clear [facility] ([place] Comment on above: Performed By: #### U A, PREGU #### Sean Venus [address] [place], [place] [address] UA Blood Trace Abnormal Negative [facility] ([place] Comment on above: Performed By: #### U A, PREGU #### Sean Venus [address] [place], [place] [address] UA Leuk Est Moderate Abnormal Negative [facility] ([place]) Comment on above: Performed By: #### U A, PREGU #### Sean Venus [address] [place], [place] [address] UA Nitrite Negative Normal Negative [facility] ([place] Comment on above: Performed By: #### U A, PREGU #### Sean Venus [address] [place], [place] [address] UA pH 6.0 Normal 5.0 - 8.0 [facility] ([place] Comment on above: Performed By: #### U A, PREGU #### Sean Venus [address] [place], [place] [address] UA Spec Grav 1.015 Normal 1.015-1.025 [facility] ([place]) Comment on above: Performed By: #### U A, PREGU #### Sean Venus [address] [place], [place] [address] UA Specimen Type Clean Catch Normal [facility] ([place] Comment on above: Performed By: #### U A, PREGU #### [facility] [address] [place], [place] [address] UA Urobilinogen 0.2 E.U./dL Normal 0.2-1.0 [facility] ([place] Comment on above: Performed By: #### U A, PREGU #### Sean Venus [address] [place], [place] [address] Urobilinogen (U) [Mass/Vol] Negative Normal Negative [facility] ([place] Comment on above: Performed By: #### U A, PREGU #### Sean Venus [address] [place], [place] [address] UAOrdered By: Lynn wright on 05-19-2023 Ketones Ql (U) Negative Normal Negative AO Auto Ur ine SS Comment on above: Performed By: #### U A, PREGU #### Sean Venus [address] [place], [place] [address] UA Protein Negative Normal Negative AO Auto Urine SS Comment on above: Performed By: #### U A, PREGU #### Sean Venus [address] [place], [place] [address] Laboratory - Chemistry and C hemistry - challengeon 05-15-2023 Anion gap [Moles/Vol] 15 mmol/L 10 - 20 [facility] Work Phone: Calcium [Mass/Vol] 9.5 mg/dL 8.6 - 10.6 [facility] Work Phone: Chloride [Moles/Vol] 102 mmol/L 98 - 107 [facility] Work Phone: CO2 [Moles/Vol] 24 mmol/L 21 - 32 [facility] Work Phone: Creatinine [Mass/Vol] 0.61 mg/dL See Below [facility] Work Phone: Comment on above: Reference Range: 0.5 0 - 1.05 Glucose [Mass/Vol] 163 mg/dL above high threshold 74 - 99 [facility] Work Phone: Potassium [Moles/Vol] 4.4 mmol/L 3.5 - 5.3 [facility] Work Phone: Sodium [Moles/Vol] 137 mmol/L 136 - 145 [facility] Work Phone: Urea nitrogen [Mass/Vol] 10 mg/dL 6 - 23 [facility] Work Phone: Laboratory - Hematology and Cell countson 05-15-2023 Erythrocyte distribution width (RBC) [Ratio] 12.8 % See Below [facility] Work Phone: Comment on above: Reference Range: 11. 5 - 14.5 Hematocrit (Bld) [Volume fraction] 35.2 % below low threshold See Below [facility] Work Phone: Comment on above: Reference Range: 36. 0 - 46.0 Hemoglobin (Bld) [Mass/Vol] 11.2 g/dL below low threshold See Below [facility] Work Phone: Comment on above: Reference Range: 12. 0 - 16.0 MCHC (RBC) [Mass/Vol] 31.8 g/dL below low threshold See Below -[facility] Work Phone: Comment on above: Reference Range: 32. 0 - 36.0 MCV (RBC) [Entitic vol] 98 fL 80 - 100 -[facility] Work Phone: Platelets (Bld) [#/Vol] 288 10*3/uL 150 - 450 -[facility] Work Phone: RBC (Bld) [#/Vol] 3.61 {x10E12/L} below low threshold See Below -[facility] Work Phone: Comment on above: Reference Range: 4.0 0 - 5.20 WBC (Bld) [#/Vol] 8.1 10*3/uL 4.4 - 11.3 MP[facility] Work Phone: No Panel Informationon 05-15 >90 >90 -Pain [facility] Work Phone: Comment on above: CALCULATIONS OF ESTUARDO MATED GFR ARE PERFORMED USING THE 2020 CKD-EPI STUDY REFIT EQUATION WITHOUT THE RACE VARIABLE FOR THE IDMS-TRACEABLE CREATININE METHODS.https://jasn.asnjournals.org/content/early/ N.0460734876 0.0 {/100_WBC} 0.0-0.0 -[facility] Work Phone: Laboratory - Chemistry and C hemistry - challengeon 05-14-2023 Sodium (U) [Moles/Vol] mmol/L See Below -[facility] Work Phone: Comment on above: Reference Range: Not Established Sodium/Creatinine (U) [Ratio] SEE COMMENT See Below -[facility] Work Phone: Comment on above: Reference Range: Not EstablishedOne or more analytes used in this calculation is outside of the analytical measurement range.Calculation cannot be performed. Anion gap [Moles/Vol] 19 mmol/L 10 - 20 MP- [facility] Work Phone: Calcium [Mass/Vol] 10.3 mg/dL 8.6 - 10.6 [facility] Work Phone: Chloride [Moles/Vol] 98 mmol/L 98 - 107 MP-P ain [facility] Work Phone: CO2 [Moles/Vol] 24 mmol/L 21 - 32 MP-[facility] Work Phone: Creatinine [Mass/Vol] 0.76 mg/dL See Below - [facility] Work Phone: Comment on above: Reference Range: 0.5 0 - 1.05 Glucose [Mass/Vol] 168 mg/dL above high threshold 74 - 99 MP-[facility] Work Phone: Potassium [Moles/Vol] 4.3 mmol/L 3.5 - 5.3 MP- [facility] Work Phone: Sodium [Moles/Vol] 137 mmol/L 136 - 145 [facility] Work Phone: Urea nitrogen [Mass/Vol] 14 mg/dL 6 - 23 MP-[facility] Work Phone: Laboratory - Coagulationon 0 - aPTT Coag (PPP) [Time] 27 s 27 - 38 MP-[facility] Work Phone: Comment on above: Note new reference r soheila as of 03/08/2023 at 10:00am. INR Coag (PPP) [Relative time] 1.1 {INR} 0.9 - 1.1 MP-[facility] Work Phone: PT Coag (PPP) [Time] 12.7 s 9.8 - 12.8 MP-P ain Management[facility] Work Phone: Comment on above: Note new reference mony parnell as of 03/08/2023 at 10:00am. Laboratory - Hematology and Cell countson 05-14-2023 Erythrocyte distribution width (RBC) [Ratio] 12.8 % See Below MP-[facility] Work Phone: Comment on above: Reference Range: 11. 5 - 14.5 Hematocrit (Bld) [Volume fraction] 35.9 % below low threshold See Below -[facility] Work Phone: Comment on above: Reference Range: 36. 0 - 46.0 Hemoglobin (Bld) [Mass/Vol] 11.9 g/dL below low threshold See Below MP-Pain [facility] Work Phone: Comment on above: Reference Range: 12. 0 - 16.0 MCHC (RBC) [Mass/Vol] 33.1 g/dL See Below - Pain [facility] Work Phone: Comment on above: Reference Range: 32. 0 - 36.0 MCV (RBC) [Entitic vol] 89 fL 80 - 100 MP-Pain [facility] Work Phone: Platelets (Bld) [#/Vol] 419 10*3/uL 150 - 450 MP-Pain Management-[facility] Work Phone: RBC (Bld) [#/Vol] 4.03 {x10E12/L} See Below MP -[facility] Work Phone: Comment on above: Reference Range: 4.0 0 - 5.20 WBC (Bld) [#/Vol] 8.9 10*3/uL 4.4 - 11.3 MP-[facility] Work Phone: Erythrocyte distribution width (RBC) [Ratio] 12.6 % See Below MP-[facility] Work Phone: Comment on above: Reference Range: 11. 5 - 14.5 Hematocrit (Bld) [Volume fraction] 36.6 % See Below MP-[facility] Work Phone: Comment on above: Reference Range: 36. 0 - 46.0 Hemoglobin (Bld) [Mass/Vol] 11.6 g/dL below low threshold See Below MP-[facility] Work Phone: Comment on above: Reference Range: 12. 0 - 16.0 MCHC (RBC) [Mass/Vol] 31.7 g/dL below low threshold See Below MP-[facility] Work Phone: Comment on above: Reference Range: 32. 0 - 36.0 MCV (RBC) [Entitic vol] 95 fL 80 - 100 MP-[facility] Work Phone: Platelets (Bld) [#/Vol] 409 10*3/uL 150 - 450 MP-[facility] Work Phone: RBC (Bld) [#/Vol] 3.84 {x10E12/L} below low threshold See Below MP-[facility] Work Phone: Comment on above: Reference Range: 4.0 0 - 5.20 WBC (Bld) [#/Vol] 8.4 10*3/uL 4.4 - 11.3 [facility] Work Phone: No Panel Informationon 05-14 SEE COMMENT 38 - 318 -[facility] Work Phone: Comment on above: One or more analytes used in this calculation is outside of the analytical measurement range.Calculation cannot be performed. <15 See Below MP-[facility] Work Phone: Comment on above: Reference Range: Not Established >90 >90 MP-[facility] Work Phone: Comment on above: CALCULATIONS OF ESTUARDO MATED GFR ARE PERFORMED USING THE 2020 CKD-EPI STUDY REFIT EQUATION WITHOUT THE RACE VARIABLE FOR THE IDMS-TRACEABLE CREATININE METHODS.https://jasn.asnjournals.org/content/early/ N.6094968894 0.0 {/100_WBC} 0.0-0.0 MP-[facility] Work Phone: 0.0 {/100_WBC} 0.0-0.0 MP-[facility] Work Phone: Radiologyon 05-14-2023 US Kidney - bilateral Normal MP- [facility] Work Phone: Renal Function Panelon 05-14 Albumin BCP dye [Mass/Vol] 4.0 g/dL 3.4 - 5.0 MP-[facility] Work Phone: Anion gap [Moles/Vol] 13 mmol/L 10 - 20 MP- [facility] Work Phone: Calcium [Mass/Vol] 10.0 mg/dL 8.6 - 10.6 [facility] Work Phone: Chloride [Moles/Vol] 98 mmol/L 98 - 107 MP-[facility] ain [facility] Work Phone: CO2 [Moles/Vol] 29 mmol/L 21 - 32 MP-[facility] Work Phone: Creatinine [Mass/Vol] 0.69 mg/dL See Below MP- [facility] Work Phone: Comment on above: Reference Range: 0.5 0 - 1.05 Glucose [Mass/Vol] 139 mg/dL above high threshold 74 - 99 MP-[facility] Work Phone: Phosphate [Mass/Vol] 4.5 mg/dL 2.5 - 4.9 MP-P ain [facility] Work Phone: Comment on above: The performance timi acteristics of phosphorus testing in heparinized plasma have been validated by the individual laboratory site where testing is performed. Testing on heparinized plasma is not approved by the FDA; however, such approval is not necessary. Potassium [Moles/Vol] 4.0 mmol/L 3.5 - 5.3 MP- [facility] Work Phone: Sodium [Moles/Vol] 136 mmol/L 136 - 145 MP-[facility] Work Phone: Urea nitrogen [Mass/Vol] 15 mg/dL 6 - 23 MP-Pain Management-[facility] Work Phone: Renal Function Panel >90 >90 MP-P n [facility] Work Phone: Comment on above: CALCULATIONS OF ESTUARDO MATED GFR ARE PERFORMED USING THE 2020 CKD-EPI STUDY REFIT EQUATION WITHOUT THE RACE VARIABLE FOR THE IDMS-TRACEABLE CREATININE METHODS.https://jasn.asnjournals.org/content/early/ N.1026158678 Total Protein, Urine Spoton 05-14-2023 Creatinine (U) [Mass/Vol] 90.4 mg/dL See Below -Pain [facility] Work Phone: Comment on above: Reference Range: 20. 0 - 320.0 Protein (U) [Mass/Vol] 12 mg/dL 5 - 24 -Pain Management-[facility] Work Phone: Protein/Creatinine (U) [Ratio] 0.13 {mg/mg_Creat} See Below -Pain Management-[facility] Work Phone: Comment on above: Reference Range: 0.0 0 - 0.17 Urinalysison 05-14-2023 Color (U) YELLOW See Below -Pain [facility] Work Phone: Comment on above: Reference Range: STR AW,YELLOW Glucose Ql (U) Negative NEGATIVE MP-[facility] Work Phone: Ketones Ql (U) Negative NEGATIVE MP-[facility] Work Phone: Leukocyte esterase Test strip Ql (U) SMALL (1+) Abnormal NEGATIVE MP-[facility] Work Phone: pH (U) 6.0 [pH] 5.0 - 8.0 MP-[facility] Work Phone: Protein (U) [Mass/Vol] Negative NEGATIVE MP-[facility] Work Phone: RBC (U) [#/Vol] Negative NEGATIVE MP-[facility] Work Phone: Specific gravity (U) [Rel density] 1.015 1 See Below MP-[facility] Work Phone: Comment on above: Reference Range: 1.0 05 - 1.035 Urinalysis Negative NEGATIVE MP-[facility] Work Phone: Urinalysis <2.0 0.0 - 1.9 MP-[facility] Work Phone: Urinalysis HAZY CLEAR MP-[facility] Work Phone: Urinalysis, Microscopicon Urinalysis, Microscopic 3+ Abnormal MP-[facility] Work Phone: Urinalysis, Microscopic 1+ Abnormal MP-[facility] Work Phone: Urinalysis, Microscopic 11 {/HPF} MP-[facility] Work Phone: Urinalysis, Microscopic 4 {/HPF} 0-5 MP-[facility] Work Phone: Urinalysis, Microscopic RARE MP-[facility] Work Phone: Urinalysis, Microscopic 41 {/HPF} Abnormal 0-5 MP-[facility] Work Phone: Complete Blood Count + Diffe ade 08--2022 Basophils/100 WBC (Bld) 0.7 % 0.0 - 2.0 MP-[facility] Work Phone: Erythrocyte distribution width (RBC) [Ratio] 12.6 % See Below MP-[facility] Work Phone: Comment on above: Reference Range: 11. 5 - 14.5 Hematocrit (Bld) [Volume fraction] 36.9 % See Below MP-[facility] Work Phone: Comment on above: Reference Range: 36. 0 - 46.0 Hemoglobin (Bld) [Mass/Vol] 12.4 g/dL See Below MP-[facility] Work Phone: Comment on above: Reference Range: 12. 0 - 16.0 Lymphocytes/100 WBC (Bld) 23.8 % See Below MP-[facility] Work Phone: Comment on above: Reference Range: 13. 0 - 44.0 MCHC (RBC) [Mass/Vol] 33.6 g/dL See Below MP- [facility] Work Phone: Comment on above: Reference Range: 32. 0 - 36.0 MCV (RBC) [Entitic vol] 89 fL 80 - 100 MP-[facility] Work Phone: Monocytes/100 WBC (Bld) 7.1 % 2.0 - 10.0 MP-[facility] Work Phone: Neutrophils/100 WBC (Bld) 63.7 % See Below MP-[facility] Work Phone: Comment on above: Reference Range: 40. 0 - 80.0 Platelets (Bld) [#/Vol] 354 10*3/uL 150 - 450 MP-[facility] Work Phone: RBC (Bld) [#/Vol] 4.15 {x10E12/L} See Below MP -[facility] Work Phone: Comment on above: Reference Range: 4.0 0 - 5.20 WBC (Bld) [#/Vol] 8.1 10*3/uL 4.4 - 11.3 [facility] Work Phone: Complete Blood Count + Differential 0.06 {x10E9/L} See Below MP-[facility] Work Phone: Comment on above: Reference Range: 0.0 0 - 0.10 Complete Blood Count + Differential 0.33 {x10E9/L} See Below MP-[facility] Work Phone: Comment on above: Reference Range: 0.0 0 - 0.70 Complete Blood Count + Differential 0.57 {x10E9/L} See Below MP-[facility] Work Phone: Comment on above: Reference Range: 0.1 0 - 1.00 Complete Blood Count + Differential 1.92 {x10E9/L} See Below MP-[facility] Work Phone: Comment on above: Reference Range: 1.2 0 - 4.80 Complete Blood Count + Differential 5.15 {x10E9/L} See Below MP-[facility] Work Phone: Comment on above: Reference Range: 1.2 0 - 7.70 Complete Blood Count + Differential 4.1 % 0.0 - 6.0 MP-[facility] Work Phone: Complete Blood Count + Differential 0.6 % 0.0 - 0.9 MP-[facility] Work Phone: Comment on above: Immature Granulocyte Count (IG) includes promyelocytes, myelocytes and metamyelocytes but does not include bands. Percent differential counts (%) should be interpreted in the context of the absolute cell counts (cells/L). Complete Blood Count + Differential 0.0 {/100_WBC} 0.0-0.0 MP-Pain [facility] Work Phone: Cult, Urineon 05-13-2023 Bacteria identified Cx Nom (U) Abnormal -Pain [facility] Work Phone: Initial Visit (Pain Medicine )on 05-13-2023 Initial Visit (Pain Medicine) No report was sent Normal [facility] - Chemistry and C hemistry - challengeon 05-13-2023 Albumin BCP dye [Mass/Vol] 3.9 g/dL 3.4 - 5.0 -Pain [facility] Work Phone: ALP [Catalytic activity/Vol] 62 U/L 33 - 110 MP-Pain [facility] Work Phone: ALT With P-5'-P [Catalytic activity/Vol] 43 U/L 7 - 45 -Pain [facility] Work Phone: Comment on above: Patients treated wit h Sulfasalazine may generate falsely decreased results for ALT. Anion gap [Moles/Vol] 14 mmol/L 10 - 20 MP- Pain [facility] Work Phone: AST With P-5'-P [Catalytic activity/Vol] 27 U/L 9 - 39 MP-Pain [facility] Work Phone: Bilirubin [Mass/Vol] 0.3 mg/dL 0.0 - 1.2 MP-P ain [facility] Work Phone: Calcium [Mass/Vol] 9.7 mg/dL 8.6 - 10.6 MP-Colin n [facility] Work Phone: Chloride [Moles/Vol] 98 mmol/L 98 - 107 MP-P ain [facility] Work Phone: CO2 [Moles/Vol] 30 mmol/L 21 - 32 MP-[facility] Work Phone: Creatinine [Mass/Vol] 0.75 mg/dL See Below - [facility] Work Phone: Comment on above: Reference Range: 0.5 0 - 1.05 Glucose [Mass/Vol] 103 mg/dL above high threshold 74 - 99 MP-[facility] Work Phone: Potassium [Moles/Vol] 3.5 mmol/L 3.5 - 5.3 MP- [facility] Work Phone: Protein [Mass/Vol] 6.4 g/dL 6.4 - 8.2 MP-[facility] Work Phone: Sodium [Moles/Vol] 138 mmol/L 136 - 145 MP-[facility] Work Phone: Urea nitrogen [Mass/Vol] 17 mg/dL 6 - 23 MP-[facility] Work Phone: Albumin BCP dye [Mass/Vol] 3.8 g/dL 3.4 - 5.0 MP-[facility] Work Phone: ALP [Catalytic activity/Vol] 59 U/L 33 - 110 MP-[facility] Work Phone: ALT With P-5'-P [Catalytic activity/Vol] 42 U/L 7 - 45 MP-[facility] Work Phone: Comment on above: Patients treated wit h Sulfasalazine may generate falsely decreased results for ALT. Anion gap [Moles/Vol] 17 mmol/L 10 - 20 MP- [facility] Work Phone: AST With P-5'-P [Catalytic activity/Vol] 28 U/L 9 - 39 MP-[facility] Work Phone: Bilirubin [Mass/Vol] 0.3 mg/dL 0.0 - 1.2 MP-P ain [facility] Work Phone: Calcium [Mass/Vol] 9.7 mg/dL 8.6 - 10.6 MP-[facility] Work Phone: Chloride [Moles/Vol] 98 mmol/L 98 - 107 MP-P ain [facility] Work Phone: CO2 [Moles/Vol] 26 mmol/L 21 - 32 MP-[facility] Work Phone: Creatinine [Mass/Vol] 0.71 mg/dL See Below - Pain [facility] Work Phone: Comment on above: Reference Range: 0.5 0 - 1.05 Glucose [Mass/Vol] 154 mg/dL above high threshold 74 - 99 MP-[facility] Work Phone: LDH [Catalytic activity/Vol] 201 U/L 84 - 246 MP-[facility] Work Phone: Potassium [Moles/Vol] 3.5 mmol/L 3.5 - 5.3 MP- [facility] Work Phone: Protein [Mass/Vol] 6.3 g/dL below low threshold 6.4 - 8.2 MP-[facility] Work Phone: Sodium [Moles/Vol] 137 mmol/L 136 - 145 MP-[facility] Work Phone: Urea nitrogen [Mass/Vol] 16 mg/dL 6 - 23 MP-[facility] Work Phone: Laboratory - Hematology and Cell countson 05-13-2023 Erythrocyte distribution width (RBC) [Ratio] 12.5 % See Below MP-Pain Management-[facility] Work Phone: Comment on above: Reference Range: 11. 5 - 14.5 Hematocrit (Bld) [Volume fraction] 38.6 % See Below -[facility] Work Phone: Comment on above: Reference Range: 36. 0 - 46.0 Hemoglobin (Bld) [Mass/Vol] 12.6 g/dL See Below -Pain Management-[facility] Work Phone: Comment on above: Reference Range: 12. 0 - 16.0 MCHC (RBC) [Mass/Vol] 32.6 g/dL See Below - Pain Management-[facility] Work Phone: Comment on above: Reference Range: 32. 0 - 36.0 MCV (RBC) [Entitic vol] 94 fL 80 - 100 MP-Pain [facility] Work Phone: Platelets (Bld) [#/Vol] 440 10*3/uL 150 - 450 -Pain [facility] Work Phone: RBC (Bld) [#/Vol] 4.10 {x10E12/L} See Below -Pain [facility] Work Phone: Comment on above: Reference Range: 4.0 0 - 5.20 WBC (Bld) [#/Vol] 10.7 10*3/uL 4.4 - 11.3 MP-Pa in [facility] Work Phone: Magnesium, Serumon 3 Magnesium [Mass/Vol] 2.40 mg/dL See Below MP-P ain [facility] Work Phone: Comment on above: Reference Range: 1.6 0 - 2.40 No Panel Informationon 05-13 >90 >90 MP-Pain [facility] Work Phone: Comment on above: CALCULATIONS OF ESTUARDO MATED GFR ARE PERFORMED USING THE 2020 CKD-EPI STUDY REFIT EQUATION WITHOUT THE RACE VARIABLE FOR THE IDMS-TRACEABLE CREATININE METHODS.https://jasn.asnjournals.org/content/early/ N.9012818155 0.0 {/100_WBC} 0.0-0.0 MP-[facility] Work Phone: >90 >90 MP-[facility] Work Phone: Comment on above: CALCULATIONS OF ESTUARDO MATED GFR ARE PERFORMED USING THE 2020 CKD-EPI STUDY REFIT EQUATION WITHOUT THE RACE VARIABLE FOR THE IDMS-TRACEABLE CREATININE METHODS.https://jasn.asnjournals.org/content// N.1881841571 [email or web address] :8080/musescripts/musew eb.dll?RetrieveTestByDa teTime?HnyhpuoZJ=[email or web address] [id number]&Date=13-05-2023&Johnathan e=[id number]&Peggy tType=ECG&Site=1&Output Type=PDF&Ext=PDF MP-[facility] Work Phone: Normal sinus rhythm MP-Pa in Management[facility] Work Phone: Abnormal MP-[facility] Work Phone: [phone] MP-[facility] Work Phone: [phone] MP-[facility] Work Phone: [phone] MP-[facility] Work Phone: 147 1 MP-[facility] Work Phone: [phone] MP-[facility] Work Phone: 13 1 MP-[facility] Work Phone: 6 1 MP-[facility] Management-[facility] [place] Work Phone: -7 1 [facility] [place] Work Phone: 37 1 [facility] [place] Work Phone: [phone] [facility] [place] Work Phone: [phone] [facility] [place] Work Phone: 90 1 [facility] [place] Work Phone: [phone] [facility] [place] Work Phone: [phone] 1 [facility] [place] Work Phone: Phosphorus, Serumon 05-13-20 23 Phosphate [Mass/Vol] 4.0 mg/dL 2.5 - 4.9 MP-P ain [facility] Work Phone: Comment on above: The performance timi acteristics of phosphorus testing in heparinized plasma have been validated by the individual laboratory site where testing is performed. Testing on heparinized plasma is not approved by the FDA; however, such approval is not necessary. TROPONIN I, HIGH SENSITIVITY on 05-13-2023 Tropinin I.cardiac panel High sensitivity method <3 0 - 34 MP-[facility] Work Phone: Comment on above: .Less than [...] performed using a different testing methodology at [facility] than at other [facility]. Direct result comparisons should only be made within the same method. Tropinin I.cardiac panel High sensitivity method <3 0 - 34 MP-[facility] Work Phone: Comment on above: .Less than [...] performed using a different testing methodology at [facility] than at other [facility]. Direct result comparisons should only be made within the same method. URINALYSIS WITH CULTURE IF I NDICATEDon 05-13-2023 Color (U) RED See Below -[facility] Work Phone: Comment on above: Reference Range: STR AW,YELLOW Glucose Ql (U) Negative NEGATIVE -Pain [facility] Work Phone: Ketones Ql (U) Negative NEGATIVE -Pain [facility] Work Phone: Leukocyte esterase Test strip Ql (U) TRACE Abnormal NEGATIVE -Pain [facility] Work Phone: pH (U) 7.0 [pH] 5.0 - 8.0 MP-[facility] Work Phone: Protein (U) [Mass/Vol] >=300 + Abnormal NEGATIVE -[facility] Work Phone: RBC (U) [#/Vol] LARGE (3+) Abnormal NEGATIVE MP-Pain Management-[facility] Work Phone: Specific gravity (U) [Rel density] 1.020 1 See Below MP-[facility] Work Phone: Comment on above: Reference Range: 1.0 05 - 1.035 URINALYSIS WITH CULTURE IF INDICATED Negative NEGATIVE MP-[facility] Work Phone: URINALYSIS WITH CULTURE IF INDICATED <2.0 0.0 - 1.9 MP-[facility] Work Phone: URINALYSIS WITH CULTURE IF INDICATED CLOUDY CLEAR MP-[facility] Work Phone: Urinalysis, Microscopicon Urinalysis, Microscopic 1+ Abnormal MP-[facility] Work Phone: Urinalysis, Microscopic >100 Abnormal 0-5 -Pain [facility] Work Phone: Urinalysis, Microscopic 0-5 0-5 MP-[facility] Work Phone: CT Abdomen and Pelvis with I V Contraston 05-12-2023 CT Abdomen and Pelvis W contrast IV Normal -Pain [facility] Work Phone: Complete Blood Count + Diffe rentialon 05-12-2023 Basophils/100 WBC (Bld) 0.8 % 0.0 - 2.0 MP-[facility] Work Phone: Erythrocyte distribution width (RBC) [Ratio] 12.3 % See Below MP-[facility] Work Phone: Comment on above: Reference Range: 11. 5 - 14.5 Hematocrit (Bld) [Volume fraction] 42.7 % See Below MP-[facility] Work Phone: Comment on above: Reference Range: 36. 0 - 46.0 Hemoglobin (Bld) [Mass/Vol] 14.1 g/dL See Below MP-[facility] Work Phone: Comment on above: Reference Range: 12. 0 - 16.0 Lymphocytes/100 WBC (Bld) 26.2 % See Below MP-[facility] Work Phone: Comment on above: Reference Range: 13. 0 - 44.0 MCHC (RBC) [Mass/Vol] 33.0 g/dL See Below [facility] Health Work Phone: Comment on above: Reference Range: 32. 0 - 36.0 MCV (RBC) [Entitic vol] 90 fL 80 - 100 [facility] Work Phone: Monocytes/100 WBC (Bld) 7.8 % 2.0 - 10.0 [facility] Work Phone: Neutrophils/100 WBC (Bld) 61.7 % See Below [facility] Work Phone: Comment on above: Reference Range: 40. 0 - 80.0 Platelets (Bld) [#/Vol] 535 10*3/uL above high threshold 150 - 450 [facility] Work Phone: RBC (Bld) [#/Vol] 4.74 {x10E12/L} See Below [facility] Work Phone: Comment on above: Reference Range: 4.0 0 - 5.20 WBC (Bld) [#/Vol] 7.3 10*3/uL 4.4 - 11.3 [facility] Work Phone: Complete Blood Count + Differential 0.06 {x10E9/L} See Below [facility] Work Phone: Comment on above: Reference Range: 0.0 0 - 0.10 Complete Blood Count + Differential 0.22 {x10E9/L} See Below [facility] Work Phone: Comment on above: Reference Range: 0.0 0 - 0.70 Complete Blood Count + Differential 0.57 {x10E9/L} See Below [facility] Work Phone: Comment on above: Reference Range: 0.1 0 - 1.00 Complete Blood Count + Differential 1.92 {x10E9/L} See Below [facility] Work Phone: Comment on above: Reference Range: 1.2 0 - 4.80 Complete Blood Count + Differential 4.53 {x10E9/L} See Below -[facility] Work Phone: Comment on above: Reference Range: 1.2 0 - 7.70 Complete Blood Count + Differential 3.0 % 0.0 - 6.0 [facility] Work Phone: Complete Blood Count + Differential 0.5 % 0.0 - 0.9 [facility] Work Phone: Comment on above: Immature Granulocyte Count (IG) includes promyelocytes, myelocytes and metamyelocytes but does not include bands. Percent differential counts (%) should be interpreted in the context of the absolute cell counts (cells/L). Complete Blood Count + Differential 0.0 {/100_WBC} 0.0-0.0 [facility] Work Phone: HCG, Beta Quantitativeon HCG.beta subunit Qn 4 {IU/L} MP-Pa in [facility] Work Phone: Comment on above: .Total HCG measureme nt is performed using the Siemens Atellicaimmunoassay which detects intact HCG and free beta HCG subunit..This test is not indicated for use as a tumor marker.HCG testing is performed using a different test methodology at [facility] than other [facility]. Direct result comparisonshould only be made within the same method..REF VALUESNON FEMALE <5MALES <5 Laboratory - Chemistry and C hemistry - challengeon 05-12-2023 Albumin BCP dye [Mass/Vol] 4.9 g/dL 3.4 - 5.0 [facility] Work Phone: ALP [Catalytic activity/Vol] 79 U/L 33 - 110 [facility] Work Phone: ALT With P-5'-P [Catalytic activity/Vol] 60 U/L above high threshold 7 - 45 [facility] Work Phone: Comment on above: Patients treated wit h Sulfasalazine may generate falsely decreased results for ALT. Anion gap [Moles/Vol] 18 mmol/L 10 - 20 [facility] Work Phone: AST With P-5'-P [Catalytic activity/Vol] 46 U/L above high threshold 9 - 39 [facility] Work Phone: Bilirubin [Mass/Vol] 0.3 mg/dL 0.0 - 1.2 [facility] ain [facility] Work Phone: Calcium [Mass/Vol] 10.0 mg/dL 8.6 - 10.6 [facility] Work Phone: Chloride [Moles/Vol] 88 mmol/L below low threshold 98 - 107 [facility] Work Phone: CO2 [Moles/Vol] 32 mmol/L 21 - 32 [facility] Work Phone: Creatinine [Mass/Vol] 0.86 mg/dL See Below [facility] Work Phone: Comment on above: Reference Range: 0.5 0 - 1.05 Glucose [Mass/Vol] 117 mg/dL above high threshold 74 - 99 [facility] Work Phone: Potassium [Moles/Vol] 3.0 mmol/L below low threshold 3.5 - 5.3 -[facility] Work Phone: Protein [Mass/Vol] 8.6 g/dL above high threshold 6.4 - 8.2 [facility] Work Phone: Sodium [Moles/Vol] 135 mmol/L below low threshold 136 - 145 [facility] Work Phone: Urea nitrogen [Mass/Vol] 17 mg/dL 6 - 23 [facility] Work Phone: Laboratory - Drug toxicology on 05-12-2023 Amphetamines Screen Ql (U) Negative NEGATIVE [facility] Work Phone: Comment on above: CUTOFF LEVEL: 500 NG /ML Cross-reactivity has been reported with high concentrations of the following drugs: buproprion, chloroquine, chlorpromazine, ephedrine, mephentermine, fenfluramine, phentermine, phenylpropanolamine, pseudoephedrine, and propranolol. Barbiturates Screen Ql (U) Negative NEGATIVE [facility] Work Phone: Comment on above: CUTOFF LEVEL: 200 NG /ML Benzodiazepines Ql (U) Negative NEGATIVE -[facility] Work Phone: Comment on above: CUTOFF LEVEL: 200 NG /ML Benzoylecgonine Screen Ql (U) Negative NEGATIVE [facility] Work Phone: Comment on above: CUTOFF LEVEL: 150 NG /ML Cannabinoids Screen Ql (U) Negative NEGATIVE [facility] Work Phone: Comment on above: CUTOFF LEVEL: 50 NG/ ML Opiates Screen Ql (U) Negative NEGATIVE [facility] Work Phone: Comment on above: CUTOFF LEVEL: 300 NG /ML The opiate screen does not detect fentanyl, meperidine, or tramadol. Oxycodone is not consistently detected (refer to Oxycodone Screen, Urine result). oxyCODONE+oxyMORphone Screen Ql (U) Positive Abnormal NEGATIVE [facility] Work [facility]: Comment on above: CUTOFF LEVEL: 100 NG /ML This test will accurately detect both oxycodone and oxymorphone. Phencyclidine Ql (U) Negative NEGATIVE [facility] Work Phone: Comment on above: CUTOFF LEVEL: 25 NG/ ML Cross-reactivity has been reported with dextromethorphan. Lipase, Serumon 05-12-2023 Lipase [Catalytic activity/Vol] 161 U/L above high threshold 9 - 82 [facility] Work Phone: Comment on above: Venipuncture immedia tely after or during the administration of Metamizole may lead to falsely low results. Testing should be performed immediately prior to Metamizole dosing. O-shrtpu-i-benzoquinone imine (metabolite of Acetaminophen) will generate erroneously low results in samples for patients that have taken toxic doses of acetaminophen. No Panel Informationon 05-12 SEE BELOW [facility] Work Phone: Comment on above: Drug screen results are presumptive and should not be used to assess compliance with prescribed medication. Contact the performing [facility] laboratory to add-on definitive confirmatory testing if [...] medical directors. 83 {mL/min/1.73m2} >90 [facility] Work Phone: Comment on above: CALCULATIONS OF ESTUARDO MATED GFR ARE PERFORMED USING THE 2020 CKD-EPI STUDY REFIT EQUATION WITHOUT THE RACE VARIABLE FOR THE IDMS-TRACEABLE CREATININE METHODS.https://jasn.asnjournals.org/content// N.8751855810 URINALYSIS WITH CULTURE IF I NDICATEDon 05-12-2023 Color (U) YELLOW See Below [employer] Work Phone: Comment on above: Reference Range: STR AW,YELLOW Glucose Ql (U) Negative NEGATIVE [facility] Work Phone: Ketones Ql (U) Negative NEGATIVE [facility] Work Phone: Leukocyte esterase Test strip Ql (U) Negative NEGATIVE [facility] Work Phone: pH (U) 7.0 [pH] 5.0 - 8.0 [facility] Work Phone: Protein (U) [Mass/Vol] Negative NEGATIVE [facility] Work Phone: RBC (U) [#/Vol] Negative NEGATIVE [facility] Work Phone: Specific gravity (U) [Rel density] 1.011 1 See Below -[facility] Work Phone: Comment on above: Reference Range: 1.0 05 - 1.035 URINALYSIS WITH CULTURE IF INDICATED Negative NEGATIVE [facility] Work Phone: Comment on above: CUTOFF LEVEL: 5 NG/M L URINALYSIS WITH CULTURE IF INDICATED <2.0 0.0 - 1.9 [facility] Work Phone: URINALYSIS WITH CULTURE IF INDICATED CLEAR CLEAR [facility] [employer] Work Phone: .Auto DiffOrdered By: SYSTEM SYSTEM on 05-09-2023 Basophil, Absolute 0.2 103/mcL Normal 0.0-0.2 AO Wo rkflow SS Comment on above: Performed By: #### U A, PREGU #### Sean [address] [place], [place] [address] Basophils/100 WBC (Bld) 1.5 % Normal 0.0-2.5 AO Workflow SS Comment on above: Performed By: #### U A, PREGU #### Sean [address] [place], [place] [address] Eosinophil, Absolute 0.3 103/mcL Normal 0.0-0.4 AO Workflow SS Comment on above: Performed By: #### U A, PREGU #### Sean [address] [place], [place] [address] Eosinophils/100 WBC (Bld) 2.8 % Normal 0.0-7.0 AO Workflow SS Comment on above: Performed By: #### U A, PREGU #### Sean [address] [place], [place] [address] Lymphocyte, Absolute 2.5 103/mcL Normal 0.8-3.9 AO Workflow SS Comment on above: Performed By: #### U A, PREGU #### Sean [address] [place], [place] [address] Lymphocytes/100 WBC (Bld) 20.8 % Normal 10.0-50.0 AO Workflow SS Comment on above: Performed By: #### U A, PREGU #### Sean [address] [place], [place] [address] Monocyte, Absolute 0.7 103/mcL Normal 0.2-1.0 AO Wo rkflow SS Comment on above: Performed By: #### U A, PREGU #### Sean [address] [place], [place] [address] Monocytes/100 WBC (Bld) 5.4 % Normal 1.7-13.0 AO Workflow SS Comment on above: Performed By: #### U A, PREGU #### Sean [address] [place], [place] [address] Neutrophils/100 WBC (Bld) 69.5 % Normal 37.0-80.0 AO Workflow SS Comment on above: Performed By: #### U A, PREGU #### Sean [address] [place], [place] [address] .GFRon 05-09-2023 GFR Non- 67 ml/min/1.73sqm Normal [facility] ([place]) Comment on above: Result Comment: GFR Population [...] By: #### U A, PREGU #### Sean [address] [place], [place] [address] GFR 81 ml/min/1.73sqm Normal [facility] ([place]) Comment on above: Result Comment: GFR [...] By: #### U A, PREGU #### Sean [address] [place], [place] [address] .MDWon 05-09-2023 Monocyte Distribution Width 19.94 Normal 0.00-20.00 [facility] ([place]) Comment on above: Result Comment: For ED adult patients suspected of sepsis, MDW<=20.0 does not rule out sepsis or risk of sepsis Performed By: #### U Abigail, PREGU #### Sean [address] [place], [place] [address] .NEUABSOrdered By: SYSTEM SY STEM on 05-09-2023 Neutrophil, Absolute 8.4 103/mcL High 2.9-6.2 AO Workflow SS Comment on above: Performed By: #### U A, PREGU #### Sean [address] [place], [place] [address] .Urinalysis Microscopic (AO) on 05-09-2023 UA RBC 0-5 Abnormal None Seen [facility] ([place]) Comment on above: Performed By: #### A DIFF, ANEU, CMP, MG, GFR, LD, CRP, CBC, ESR #### Sean [address] [address] UA Squam Epithelial 0-5 Abnormal None Seen [facility] ([place]) Comment on above: Performed By: #### A DIFF, ANEU, CMP, MG, GFR, LD, CRP, CBC, ESR #### [address] [address] UA WBC None Seen Normal None Seen [facility] ([place]) Comment on above: Performed By: #### A DIFF, ANEU, CMP, MG, GFR, LD, CRP, CBC, ESR #### [address] [address] CBCOrdered By: SYSTEM SYSTEM on 05-09-2023 Erythrocyte distribution width (RBC) [Ratio] 13.7 % Normal 11.5-14.5 AO Workflow SS Comment on above: Performed By: #### U A, PREGU #### Sean [address] [place], [place] [address] Hematocrit (Bld) [Volume fraction] 40.6 % Normal 37.0-47.0 AO Workflow SS Comment on above: Performed By: #### U A, PREGU #### Sean [address] [place] [id number] MCH (RBC) [Entitic mass] 30.0 pg Normal 27.0-31.2 AO Workflow SS Comment on above: Performed By: #### U A, PREGU #### Sean Loa[address] [place], [place] [address] MCHC 33.0 G/dL Normal 33.0-37.0 AO Workflow SS Comment on above: Performed By: #### U A, PREGU #### Sean [address] [place], [place] [address] MCV (RBC) [Entitic vol] 90.9 fL Normal 80.0-94.0 AO Workflow SS Comment on above: Performed By: #### U A, PREGU #### Sean [address] [place], [place] [address] Platelet mean volume (Bld) [Entitic vol] 6.2 fL Low 7.4-10.4 AO Workflow SS Comment on above: Performed By: #### U A, PREGU #### Sean [address] [place], [place] [address] CBCon 05-09-2023 Hgb 13.4 G/dL Normal 12.0-16.0 [facility] ([place]) Comment on above: Performed By: #### U A, PREGU #### Sean [address] [place], [place] [address] Platelet 487 10 3/mcL High 130-400 [facility] ([place]) Comment on above: Performed By: #### U A, PREGU #### Sean [address] [place], [place] [address] RBC 4.46 10 6/mcL Normal 4.20-5.40 [facility] ([place]) Comment on above: Performed By: #### U A, PREGU #### Sean [address] [place], [place] [address] WBC 12.1 10 3/mcL High 4.6-10.8 [facility] ([place]) Comment on above: Performed By: #### U A, PREGU #### Sean [address] [place], [place] [address] CMPon 05-09-2023 Albumin Level 4.3 G/dL Normal 3.5-5.0 [facility] ([place]) Comment on above: Performed By: #### U A, PREGU #### Sean [address] [place], [place] [address] ALT [Catalytic activity/Vol] 58 U/L Normal 14-59 [facility] ([place]) Comment on above: Performed By: #### U A, PREGU #### Seanoz Loaiz[address] [place], [place] [address] AST [Catalytic activity/Vol] 30 U/L Normal 10-40 [facility] ([place]) Comment on above: Performed By: #### U A, PREGU #### Seanoz DavisVenus [address] [place], [place] [address] Bili Total 0.3 mg/dL Normal 0.2-1.0 [facility] ([place]) Comment on above: Result Comment: Use of this assay is not recommended for patients undergoing treatment with eltrombopag due to the potential for falsely elevated results. Performed By: #### U A, PREGU #### Seanoz [address] [place], [place] [address] BUN/Creatinine Ratio 27 ratio Normal 7-27 [facility] ([place]) Comment on above: Performed By: #### U A, PREGU #### Sean [address] [place], [place] [address] Total Protein 8.2 G/dL Normal 6.4-8.2 [facility] ([place]) Comment on above: Performed By: #### U A, PREGU #### Seanoz [address] [place], [place] [address] CMPOrdered By: SYSTEM SYSTEM on 05-09-2023 Albumin/Globulin [Mass ratio] 1.1 {ratio} Normal 1.1-2.5 AO ADM SS Comment on above: Performed By: #### U A, PREGU #### Sean [address] [place], [place] [address] ALP [Catalytic activity/Vol] 81 U/L Normal 40-135 AO ADM SS Comment on above: Performed By: #### U A, PREGU #### Sean [address] [place], [place] [address] Calcium [Mass/Vol] 9.6 mg/dL Normal 8.4-10.2 AO ADM SS Comment on above: Performed By: #### U A, PREGU #### Sean [address] [place], [place] [address] Chloride [Moles/Vol] 98 mmol/L Normal 98-107 AO A DM SS Comment on above: Performed By: #### U Abigail, PREGU #### Sean [address] [place], [place] [address] CO2 [Moles/Vol] 27 mmol/L Normal 22-29 AO ADM SS Comment on above: Performed By: #### U Abigail, PREGU #### Sean [address] [place], [place] [address] Creatinine [Mass/Vol] 0.90 mg/dL Normal 0.55-1.02 AO ADM SS Comment on above: Performed By: #### U Abigail, PREGU #### Sean [address] [place], [place] [address] Electrolyte Balance 11.0 mEq/L Normal 4.0-15.0 AO AD M SS Comment on above: Performed By: #### Jed Hayes, PREGU #### Sean [address] [place], [place] [address] Globulin 3.9 G/dL Normal AO ADM SS Comment on above: Performed By: #### U Abigail, PREGU #### Sean [address] [place], [place] [address] Glucose [Mass/Vol] 115 mg/dL High 70-105 AO ADM SS Comment on above: Performed By: #### U Abigail, PREGU #### Sean [address] [place], [place] [address] Potassium [Moles/Vol] 4.3 mmol/L Normal 3.5-5.1 AO ADM SS Comment on above: Performed By: #### U Abigail, PREGU #### Sean [address] [place], [place] [address] Sodium [Moles/Vol] 136 mmol/L Normal 136-145 AO ADM SS Comment on above: Performed By: #### U A, PREGU #### Sean [address] [place], [place] [address] Urea nitrogen [Mass/Vol] 24 mg/dL High 7-18 AO ADM SS Comment on above: Performed By: #### U A, PREGU #### Sean [address] [place], [place] [address] LABORATORYOrdered By: SYSTEM SYSTEM on 05-09-2023 Albumin [...] 05-09-2023 Lipase Level 49 U/L Normal 16-77 [facility] ([place]) Comment on above: Performed By: #### U A, PREGU #### [facility] [address] [place], [place] [address] UAon 05-09-2023 Color (U) Yellow Normal [facility] ([place]) Comment on above: Performed By: #### A DIFF, ANEU, CMP, MG, GFR, LD, CRP, CBC, ESR #### [address] [address] Glucose (U) [Mass/Vol] Negative Normal Negative [facility] ([place]) Comment on above: Performed By: #### A DIFF, ANEU, CMP, MG, GFR, LD, CRP, CBC, ESR #### [address] [address] UA Appear Cloudy Abnormal Clear [facility] ([place]) Comment on above: Performed By: #### A DIFF, ANEU, CMP, MG, GFR, LD, CRP, CBC, ESR #### [address] [address] UA Blood Negative Normal Negative [facility] ([place]) Comment on above: Performed By: #### A DIFF, ANEU, CMP, MG, GFR, LD, CRP, CBC, ESR #### [address] [address] UA Leuk Est Negative Normal Negative [facility] ([place]) Comment on above: Performed By: #### A DIFF, ANEU, CMP, MG, GFR, LD, CRP, CBC, ESR #### [address] [address] UA Nitrite Negative Normal Negative [facility] ([place]) Comment on above: Performed By: #### A DIFF, ANEU, CMP, MG, GFR, LD, CRP, CBC, ESR #### [address] [address] UA pH 7.5 Normal 5.0 - 8.0 [facility] ([place]) Comment on above: Performed By: #### A DIFF, ANEU, CMP, MG, GFR, LD, CRP, CBC, ESR #### [address] [address] UA Spec Grav 1.020 Normal 1.015-1.025 [facility] ([place]) Comment on above: Performed By: #### A DIFF, ANEU, CMP, MG, GFR, LD, CRP, CBC, ESR #### [address] [address] UA Specimen Type Clean Catch Normal [facility] ([place]) Comment on above: Performed By: #### A DIFF, ANEU, CMP, MG, GFR, LD, CRP, CBC, ESR #### [address] [address] UA Urobilinogen 0.2 E.U./dL Normal 0.2-1.0 [facility] ([place]) Comment on above: Performed By: #### A DIFF, ANEU, CMP, MG, GFR, LD, CRP, CBC, ESR #### [address] [address] Urobilinogen (U) [Mass/Vol] Negative Normal Negative [facility] ([place]) Comment on above: Performed By: #### A DIFF, ANEU, CMP, MG, GFR, LD, CRP, CBC, ESR #### [address] [address] UAOrdered By: Elaine covington 05-09-2023 Ketones Ql (U) Negative Normal Negative AO Auto Ur ine SS Comment on above: Performed By: #### A DIFF, ANEU, CMP, MG, GFR, LD, CRP, CBC, ESR #### [address] [place], [place] [address] UA Protein Negative Normal Negative AO Auto Urine SS Comment on above: Performed By: #### A DIFF, ANEU, CMP, MG, GFR, LD, CRP, CBC, ESR #### [address] [place], [place] [address] Initial Visit (Pain Medicine )on 05-04-2023 Initial Visit (Pain Medicine) No report was sent Normal [facility] ED Nursing Noteon 04-30-2023 ED Nursing Note Called [facility] o give Nurse to nurse report but was informed that the nurse already received report. Chart and records sent with four horse hitch driver Caron Saucedo RN 04/30/[address] [facility] ED Nursing Note Pt arrived through [facility] ED with [facility]. This RN spoke with Gael RN coordinator at [facility] ED. Pt was en route to [facility] in [place] for psych admit. [facility] states to this RN that while en route to [facility]- pt tried reaching to grab crew car driver and had change in mental status. [facility] dispatch advised to come to nearest ED. Pt arrived to triage in wheelchair with EMS, mumbling words, not making sense. Pt did verify name, , address once registered. This RN got report from Gael at [facility]- Pt had arrived today at [facility] for anxiety and depression, was pink slipped. Pt has had previous admissions for psychosis in past. Drug screen per RN in ED today was positive for opiates, PCP, marijuana. Pt has allergies to Penicillin, Neurontin, sulfa. [facility] was notifed of pt being brought to [facility] ED. Chayito Stated pt had left ED calm and cooperative. This RN called [facility] and spoke with Dianne VILLANUEVA. Bed is held for pt once cleared by [facility] ED. Will fax paperwork needed to [facility] prior to transport. Jennifer Hancock RN 04/29/23 2322 Jennifer Hancock RN 04/29/23 2333 Jennifer Hancock RN 04/29/23 2342 Jennifer Hancock RN 04/29/23 2348 Normal [facility] ED Nursing Note Room cleared and mad e safe per protocol, protective services in ED for safety of patient and staff. Patient in gown already from transport. Belongings already bagged and brought in by critical care transport nurse, checked by [facility] protective services Caron Saucedo RN 04/29/23 0159 Normal [facility] ED Provider Noteon ED Provider Note EMERGENCY DEPARTMENT ENCOUNTER Pt Name: Dorothea Rutledge Birthdate 1975 Date of evaluation: 04/29/2023 ED Provider: Lisbeth Davies DO CHIEF COMPLAINT Chief Complaint Patient presents with Psychiatric Evaluation Being transported from [facility] to [facility] for behavioral, anxiety and depression. En route patient became aggressive and confused so the oil transport driver came here for emergency assistance. Word [...] complaint of agitation. Patient was initially at [facility], seen for similar agitation and acting bizarrely. Patient was medically cleared and plan to admit to [facility] [place]. In route from [facility] patient was initially calm and cooperative [...] and unwillingness to remain still. Work-up from [facility] was reviewed, minimal leukocytosis of 11.2, no evidence of a (more content not included)... Normal [facility] .Auto Diffon 04-29-2023 Basophil, Absolute 0.1 10 3/mcL Normal 0.0-0.2 [facility] ([place]) Comment on above: Performed By: #### A DIFF, ANEU, CMP, MG, GFR, LD, CRP, CBC, ESR #### [address] [address] Basophils/100 WBC (Bld) 0.8 % Normal 0.0-2.5 [facility] ([place]) Comment on above: Performed By: #### A DIFF, ANEU, CMP, MG, GFR, LD, CRP, CBC, ESR #### [address] [address] Eosinophil, Absolute 0.1 10 3/mcL Normal 0.0-0.4 [facility] ([place]) Comment on above: Performed By: #### A DIFF, ANEU, CMP, MG, GFR, LD, CRP, CBC, ESR #### Sean [address] [address] Eosinophils/100 WBC (Bld) 1.0 % Normal 0.0-7.0 [facility] ([place]) Comment on above: Performed By: #### A DIFF, ANEU, CMP, MG, GFR, LD, CRP, CBC, ESR #### [address] [address] Lymphocyte, Absolute 1.5 10 3/mcL Normal 0.8-3.9 [facility] ([place]) Comment on above: Performed By: #### A DIFF, ANEU, CMP, MG, GFR, LD, CRP, CBC, ESR #### [address] [address] Lymphocytes/100 WBC (Bld) 13.5 % Normal 10.0-50.0 [facility] ([place]) Comment on above: Performed By: #### A DIFF, ANEU, CMP, MG, GFR, LD, CRP, CBC, ESR #### [address] [address] Monocyte, Absolute 0.5 10 3/mcL Normal 0.2-1.0 [facility] ([place]) Comment on above: Performed By: #### A DIFF, ANEU, CMP, MG, GFR, LD, CRP, CBC, ESR #### [address] [address] Monocytes/100 WBC (Bld) 4.5 % Normal 1.7-13.0 [facility] ([place]) Comment on above: Performed By: #### A DIFF, ANEU, CMP, MG, GFR, LD, CRP, CBC, ESR #### [address] [address] Neutrophils/100 WBC (Bld) 80.2 % High 37.0-80.0 [facility] ([place]) Comment on above: Performed By: #### A DIFF, ANEU, CMP, MG, GFR, LD, CRP, CBC, ESR #### [address] [address] .GFRon 04-29-2023 GFR 102 ml/min/1.73sqm Normal [facility] ([place]) Comment on above: Result Comment: GFR [...] By: #### U A, PREGU #### Sean Venus [address] [place], [place] [address] GFR Non- 84 ml/min/1.73sqm Normal [facility] ([place]) Comment on above: Result Comment: GFR Population [...] By: #### U A, PREGU #### Sean Venus [address] [place], [place] [address] .MDWon 04-29-2023 Monocyte Distribution Width Not performed Normal 0.00-20.00 [facility] ([place]) Comment on above: Result Comment: MDW testing performed only on adult ER patients between the ages of 18-89 years. Performed By: #### A DIFF, ANEU, CMP, MG, GFR, LD, CRP, CBC, ESR #### Sean [address] [address] .NEUABSon 04-29-2023 Neutrophil, Absolute 9.0 10 3/mcL High 2.9-6.2 [facility] ([place]) Comment on above: Performed By: #### A DIFF, ANEU, CMP, MG, GFR, LD, CRP, CBC, ESR #### [place] [address] .Urinalysis Microscopic (AO) on 04-29-2023 UA Bacteria Trace Abnormal [facility] ([place]) Comment on above: Performed By: #### A DIFF, ANEU, CMP, MG, GFR, LD, CRP, CBC, ESR #### [place] [address] UA Fatty Casts 0-5 Abnormal [facility] ([place]) Comment on above: Performed By: #### A DIFF, ANEU, CMP, MG, GFR, LD, CRP, CBC, ESR #### [place] [address] UA Mucous 1+ /hpf Normal [facility] ([place]) Comment on above: Performed By: #### A DIFF, ANEU, CMP, MG, GFR, LD, CRP, CBC, ESR #### [place] [address] UA RBC 0-5 Abnormal None Seen [facility] ([place] Comment on above: Performed By: #### A DIFF, ANEU, CMP, MG, GFR, LD, CRP, CBC, ESR #### [place] [address] UA Squam Epithelial 0-5 Abnormal None Seen [facility] ([place]) Comment on above: Performed By: #### A DIFF, ANEU, CMP, MG, GFR, LD, CRP, CBC, ESR #### [place] [address] UA WBC 0-5 Abnormal None Seen [facility] ([place]) Comment on above: Performed By: #### A DIFF, ANEU, CMP, MG, GFR, LD, CRP, CBC, ESR #### [place] [address] ACETAon 04-29-2023 Acetaminophen [Mass/Vol] 0.0 ug/mL Low 10.0-30.0 [facility] ([place]) Comment on above: Performed By: #### A DIFF, ANEU, CMP, MG, GFR, LD, CRP, CBC, ESR #### [place] [address] Yony 04-29-2023 Ethanol Level <3 Normal 0-3 [facility] ([place]) Comment on above: Performed By: #### A DIFF, ANEU, CMP, MG, GFR, LD, CRP, CBC, ESR #### [place] [address] CBCon 04-29-2023 Erythrocyte distribution width (RBC) [Ratio] 13.3 % Normal 11.5-14.5 [facility] ([place]) Comment on above: Performed By: #### A DIFF, ANEU, CMP, MG, GFR, LD, CRP, CBC, ESR #### [place] [address] Hematocrit (Bld) [Volume fraction] 40.6 % Normal 37.0-47.0 [facility] ([place]) Comment on above: Performed By: #### A DIFF, ANEU, CMP, MG, GFR, LD, CRP, CBC, ESR #### [place] [id number] Hgb 13.6 G/dL Normal 12.0-16.0 [facility] ([place]) Comment on above: Performed By: #### A DIFF, ANEU, CMP, MG, GFR, LD, CRP, CBC, ESR #### [address] [address] MCH (RBC) [Entitic mass] 30.3 pg Normal 27.0-31.2 [facility] ([place]) Comment on above: Performed By: #### A DIFF, ANEU, CMP, MG, GFR, LD, CRP, CBC, ESR #### [place] [address] MCHC 33.6 G/dL Normal 33.0-37.0 [facility] ([place]) Comment on above: Performed By: #### A DIFF, ANEU, CMP, MG, GFR, LD, CRP, CBC, ESR #### [address] [address] MCV (RBC) [Entitic vol] 90.4 fL Normal 80.0-94.0 [facility] ([place]) Comment on above: Performed By: #### A DIFF, ANEU, CMP, MG, GFR, LD, CRP, CBC, ESR #### [address] [address] Platelet 487 10 3/mcL High 130-400 [facility] ([place]) Comment on above: Performed By: #### A DIFF, ANEU, CMP, MG, GFR, LD, CRP, CBC, ESR #### [address] [address] Platelet mean volume (Bld) [Entitic vol] 6.8 fL Low 7.4-10.4 [facility] ([place]) Comment on above: Performed By: #### A DIFF, ANEU, CMP, MG, GFR, LD, CRP, CBC, ESR #### [address] [address] RBC 4.50 10 6/mcL Normal 4.20-5.40 [facility] ([place]) Comment on above: Performed By: #### A DIFF, ANEU, CMP, MG, GFR, LD, CRP, CBC, ESR #### [address] [address] WBC 11.2 10 3/mcL High 4.6-10.8 [facility] ([place]) Comment on above: Performed By: #### A DIFF, ANEU, CMP, MG, GFR, LD, CRP, CBC, ESR #### [address] [address] CKon 04-29-2023 CK [Catalytic activity/Vol] 74 U/L Normal 26-192 [facility] ([place]) Comment on above: Performed By: #### C K #### [address] [address] CMPon 04-29-2023 Albumin Level 4.4 G/dL Normal 3.5-5.0 [facility] ([place]) Comment on above: Performed By: #### U A, PREGU #### [facility] [address] [place], [place] [address] Albumin/Globulin [Mass ratio] 1.2 {ratio} Normal 1.1-2.5 [facility] ([place]) Comment on above: Performed By: #### U A, PREGU #### [facility] [address] [place], [place] [address] ALP [Catalytic activity/Vol] 109 U/L Normal 40-135 [facility] ([place]) Comment on above: Performed By: #### U A, PREGU #### [facility] [address] [place], [place] [address] ALT [Catalytic activity/Vol] 112 U/L High 14-59 [facility] ([place]) Comment on above: Performed By: #### U A, PREGU #### [facility] [address] [place], [place] [address] AST [Catalytic activity/Vol] 56 U/L High 10-40 [facility] ([place]) Comment on above: Performed By: #### U A, PREGU #### [facility] [address] [place], [place] [address] Bili Total 0.5 mg/dL Normal 0.2-1.0 [facility] ([place]) Comment on above: Result Comment: Use of this assay is not recommended for patients undergoing treatment with eltrombopag due to the potential for falsely elevated results. Performed By: #### U A, PREGU #### [facility] [address] [place], [place] [address] BUN/Creatinine Ratio 12 ratio Normal 7-27 [facility] ([place]) Comment on above: Performed By: #### U A, PREGU #### [facility] [address] [place], [place] [address] Calcium [Mass/Vol] 9.3 mg/dL Normal 8.4-10.2 [facility] ([place]) Comment on above: Performed By: #### U A, PREGU #### Seanoz Loaizan [address] [place], [place] [address] Chloride [Moles/Vol] 99 mmol/L Normal 98-107 [facility] ([place]) Comment on above: Performed By: #### U A, PREGU #### Seanoz Loaizan [address] [place], [place] [address] CO2 [Moles/Vol] 26 mmol/L Normal 22-29 [facility] ([place]) Comment on above: Performed By: #### U A, PREGU #### Seanoz Loaizan [address] [place], [place] [address] Creatinine [Mass/Vol] 0.74 mg/dL Normal 0.55-1.02 [facility] ([place]) Comment on above: Performed By: #### U A, PREGU #### Sean Venus [address] [place], [place] [address] Electrolyte Balance 14.0 mEq/L Normal 4.0-15.0 [facility] ([place]) Comment on above: Performed By: #### U A, PREGU #### Sean Venus [address] [place], [place] [address] Globulin 3.8 G/dL Normal [facility] ([place]) Comment on above: Performed By: #### U A, PREGU #### Seanoz Loaizan [address] [place], [place] [address] Glucose [Mass/Vol] 135 mg/dL High 70-105 [facility] ([place]) Comment on above: Performed By: #### U A, PREGU #### Seanoz Loaizan [address] [place], [place] [address] Potassium [Moles/Vol] 3.2 mmol/L Low 3.5-5.1 [facility] ([place]) Comment on above: Performed By: #### U A, PREGU #### [facility] [address] [place], [place] [address] Sodium [Moles/Vol] 139 mmol/L Normal 136-145 [facility] ([place]) Comment on above: Performed By: #### U A, PREGU #### [facility] [address] [place], [place] [address] Total Protein 8.2 G/dL Normal 6.4-8.2 [facility] ([place]) Comment on above: Performed By: #### U A, PREGU #### [facility] [address] [place], [place] [address] Urea nitrogen [Mass/Vol] 9 mg/dL Normal 7-18 [facility] ([place]) Comment on above: Performed By: #### U A, PREGU #### [facility] [address] [place], [place] [address] [id number] 04-29-2023 SARS-CoV-2 (COVID-19) RNA SANNA+probe Ql (Unsp spec) Negative Normal Negative [facility] ([place]) Comment on above: Performed By: #### U A, PREGU #### [facility] [address] [place], [place] [address] SARS-CoV-2 (COVID-19) RNA SANNA+probe Ql (Unsp spec) Normal [facility] ([place]) Comment on above: Result Comment: Nega tive [...] By: #### U A, PREGU #### Sean Venus [address] [place] [address] LABORATORYOrdered By: Bessy Bhatti on 04-29-2023 Amphetamines [...] 04-29-2023 Lipase Level 51 U/L Normal 16-77 [facility] ([place]) Comment on above: Performed By: #### U A, PREGU #### [facility] [address] [place], [place] [address] PREGUon 04-29-2023 HCG ( test) Ql (U) Negative Normal [facility] ([place]) Comment on above: Performed By: #### A DIFF, ANEU, CMP, MG, GFR, LD, CRP, CBC, ESR #### [address] [address] test (u) int Not detected Invalid Interpretation Code [facility] ([place]) Comment on above: Performed By: #### A DIFF, ANEU, CMP, MG, GFR, LD, CRP, CBC, ESR #### [address] [address] SALon 04-29-2023 Salicylate Level 3.1 mg/dL Normal 2.8-20.0 [facility] ([place]) Comment on above: Performed By: #### A DIFF, ANEU, CMP, MG, GFR, LD, CRP, CBC, ESR #### [address] [address] TOXSCon 04-29-2023 U Ampheta (AO) Negative Normal [facility] ([place]) Comment on above: Performed By: #### A DIFF, ANEU, CMP, MG, GFR, LD, CRP, CBC, ESR #### [address] [address] U Angy (AO) Negative [facility] ([place]) Comment on above: Performed By: #### A DIFF, ANEU, CMP, MG, GFR, LD, CRP, CBC, ESR #### [address] [address] U Narinder (AO) Negative [facility] ([place]) Comment on above: Performed By: #### A DIFF, ANEU, CMP, MG, GFR, LD, CRP, CBC, ESR #### [address] [address] U Cannab (AO) Positive [facility] ([place]) Comment on above: Performed By: #### A DIFF, ANEU, CMP, MG, GFR, LD, CRP, CBC, ESR #### [address] [address] U Cocaine (AO) Negative [facility] ([place]) Comment on above: Performed By: #### A DIFF, ANEU, CMP, MG, GFR, LD, CRP, CBC, ESR #### [address] [address] U Methadone (AO) Negative [facility] ([place]) Comment on above: Performed By: #### A DIFF, ANEU, CMP, MG, GFR, LD, CRP, CBC, ESR #### [address] [address] U PCP (AO) Positive [facility] ([place]) Comment on above: Performed By: #### A DIFF, ANEU, CMP, MG, GFR, LD, CRP, CBC, ESR #### [address] [address] U TCA (AO) Negative [facility] ([place]) Comment on above: Performed By: #### A DIFF, ANEU, CMP, MG, GFR, LD, CRP, CBC, ESR #### [address] [address] Urine Opiates (AO) Positive [facility] ([place]) Comment on above: Performed By: #### A DIFF, ANEU, CMP, MG, GFR, LD, CRP, CBC, ESR #### [address] [address] UAon 04-29-2023 Color (U) Dark yellow Normal [facility] ([place]) Comment on above: Performed By: #### A DIFF, ANEU, CMP, MG, GFR, LD, CRP, CBC, ESR #### [place] [address] Glucose (U) [Mass/Vol] Negative Normal Negative [facility] ([place]) Comment on above: Performed By: #### A DIFF, ANEU, CMP, MG, GFR, LD, CRP, CBC, ESR #### [place] [address] Ketones Ql (U) Trace Abnormal Negative [facility] ([place]) Comment on above: Performed By: #### A DIFF, ANEU, CMP, MG, GFR, LD, CRP, CBC, ESR #### [place] [address] UA Appear Cloudy Abnormal Clear [facility] ([place]) Comment on above: Performed By: #### A DIFF, ANEU, CMP, MG, GFR, LD, CRP, CBC, ESR #### [address] [address] UA Blood Negative Normal Negative [facility] ([place]) Comment on above: Performed By: #### A DIFF, ANEU, CMP, MG, GFR, LD, CRP, CBC, ESR #### [address] [address] UA Leuk Est Negative Normal Negative [facility] ([place]) Comment on above: Performed By: #### A DIFF, ANEU, CMP, MG, GFR, LD, CRP, CBC, ESR #### [place] [address] UA Nitrite Negative Normal Negative [facility] ([place]) Comment on above: Performed By: #### A DIFF, ANEU, CMP, MG, GFR, LD, CRP, CBC, ESR #### [address] [address] UA pH 7.0 Normal 5.0 - 8.0 [facility] ([place]) Comment on above: Performed By: #### A DIFF, ANEU, CMP, MG, GFR, LD, CRP, CBC, ESR #### [address] [address] UA Protein Negative Normal Negative [facility] ([place] Comment on above: Performed By: #### A DIFF, ANEU, CMP, MG, GFR, LD, CRP, CBC, ESR #### [address] [address] UA Spec Grav 1.020 Normal 1.015-1.025 [facility] ([place]) Comment on above: Performed By: #### A DIFF, ANEU, CMP, MG, GFR, LD, CRP, CBC, ESR #### [address] [address] UA Specimen Type Clean Catch Normal [facility] ([place]) Comment on above: Performed By: #### A DIFF, ANEU, CMP, MG, GFR, LD, CRP, CBC, ESR #### [address] [address] UA Urobilinogen 1.0 E.U./dL Normal 0.2-1.0 [facility] ([place]) Comment on above: Performed By: #### A DIFF, ANEU, CMP, MG, GFR, LD, CRP, CBC, ESR #### [address] [address] Urobilinogen (U) [Mass/Vol] Negative Normal Negative [facility] ([place]) Comment on above: Performed By: #### A DIFF, ANEU, CMP, MG, GFR, LD, CRP, CBC, ESR #### [address] [address] Laboratory - Chemistry and C hemistry - challengeon 04-27-2023 Albumin BCP dye [Mass/Vol] 4.5 g/dL 3.4 - 5.0 [facility]- [facility] Work Phone: ALP [Catalytic activity/Vol] 95 U/L 33 - 110 [facility] Work Phone: ALT With P-5'-P [Catalytic activity/Vol] 104 U/L above high threshold 7 - 45 [facility] Work Phone: Comment on above: Patients treated wit h Sulfasalazine may generate falsely decreased results for ALT. Anion gap [Moles/Vol] 19 mmol/L 10 - 20 MP- [facility] Work Phone: AST With P-5'-P [Catalytic activity/Vol] 73 U/L above high threshold 9 - 39 [facility] Work Phone: Bilirubin [Mass/Vol] 0.6 mg/dL 0.0 - 1.2 MP-P ain [facility] Work Phone: Calcium [Mass/Vol] 9.7 mg/dL 8.6 - 10.6 [facility] Work Phone: Chloride [Moles/Vol] 94 mmol/L below low threshold 98 - 107 [facility] Work Phone: CO2 [Moles/Vol] 27 mmol/L 21 - 32 [facility] Work Phone: Creatinine [Mass/Vol] 0.60 mg/dL See Below - [facility] Work Phone: Comment on above: Reference Range: 0.5 0 - 1.05 Glucose [Mass/Vol] 151 mg/dL above high threshold 74 - 99 [facility] Work Phone: Potassium [Moles/Vol] 3.2 mmol/L below low threshold 3.5 - 5.3 [facility] Work Phone: Protein [Mass/Vol] 7.6 g/dL 6.4 - 8.2 [facility] Work Phone: Sodium [Moles/Vol] 137 mmol/L 136 - 145 [facility] Work Phone: Urea nitrogen [Mass/Vol] 10 mg/dL 6 - 23 [facility] Work Phone: Laboratory - Hematology and Cell countson 04-27-2023 Erythrocyte distribution width (RBC) [Ratio] 12.1 % See Below -[facility] Work Phone: Comment on above: Reference Range: 11. 5 - 14.5 Hematocrit (Bld) [Volume fraction] 44.1 % See Below -[facility] Work Phone: Comment on above: Reference Range: 36. 0 - 46.0 Hemoglobin (Bld) [Mass/Vol] 14.0 g/dL See Below -[facility] Work Phone: Comment on above: Reference Range: 12. 0 - 16.0 MCHC (RBC) [Mass/Vol] 31.7 g/dL below low threshold See Below -[facility] Work Phone: Comment on above: Reference Range: 32. 0 - 36.0 MCV (RBC) [Entitic vol] 95 fL 80 - 100 MP-[facility] Work Phone: Platelets (Bld) [#/Vol] 426 10*3/uL 150 - 450 -Pain Management-[facility] Work Phone: RBC (Bld) [#/Vol] 4.62 {x10E12/L} See Below MP -[facility] Work Phone: Comment on above: Reference Range: 4.0 0 - 5.20 WBC (Bld) [#/Vol] 7.0 10*3/uL 4.4 - 11.3 [facility] Work Phone: No Panel Informationon 04-27 >90 >90 -Pain Management-[facility] Work Phone: Comment on above: CALCULATIONS OF ESTUARDO MATED GFR ARE PERFORMED USING THE 2020 CKD-EPI STUDY REFIT EQUATION WITHOUT THE RACE VARIABLE FOR THE IDMS-TRACEABLE CREATININE METHODS.https://jasn.asnjournals.org/content/early/ N.7717929224 0.0 {/100_WBC} 0.0-0.0 MP-[facility] Work Phone: CT Abdomen and Pelvis with I V Contraston 04-26-2023 CT Abdomen and Pelvis W contrast IV Normal -Pain [facility] Work Phone: CT Abdomen and Pelvis W contrast IV Please click on the link to view the study images Normal -Pain [facility] Work Phone: Complete Blood Count + Diffe rentialon 04-26-2023 Basophils/100 WBC (Bld) 1.0 % 0.0 - 2.0 -Pain Management-[facility] Work Phone: Erythrocyte distribution width (RBC) [Ratio] 12.3 % See Below -Pain [facility] Work Phone: Comment on above: Reference Range: 11. 5 - 14.5 Hematocrit (Bld) [Volume fraction] 40.9 % See Below -Pain Management-[facility] Work Phone: Comment on above: Reference Range: 36. 0 - 46.0 Hemoglobin (Bld) [Mass/Vol] 14.1 g/dL See Below -[facility] Management-[facility] Work Phone: Comment on above: Reference Range: 12. 0 - 16.0 Lymphocytes/100 WBC (Bld) 27.6 % See Below -[facility] Management-[facility] Work Phone: Comment on above: Reference Range: 13. 0 - 44.0 MCHC (RBC) [Mass/Vol] 34.5 g/dL See Below MP- [facility] Management-[facility] Work Phone: Comment on above: Reference Range: 32. 0 - 36.0 MCV (RBC) [Entitic vol] 89 fL 80 - 100 MP-[facility] Work Phone: Monocytes/100 WBC (Bld) 7.5 % 2.0 - 10.0 MP-[facility] Work Phone: Neutrophils/100 WBC (Bld) 60.2 % See Below MP-[facility] Work Phone: Comment on above: Reference Range: 40. 0 - 80.0 Platelets (Bld) [#/Vol] 368 10*3/uL 150 - 450 MP-[facility] Work Phone: RBC (Bld) [#/Vol] 4.57 {x10E12/L} See Below MP -[facility] Management-[facility] Work Phone: Comment on above: Reference Range: 4.0 0 - 5.20 WBC (Bld) [#/Vol] 8.2 10*3/uL 4.4 - 11.3 [facility] Work Phone: Complete Blood Count + Differential 0.08 {x10E9/L} See Below MP-[facility] Work Phone: Comment on above: Reference Range: 0.0 0 - 0.10 Complete Blood Count + Differential 0.26 {x10E9/L} See Below MP-[facility] Work Phone: Comment on above: Reference Range: 0.0 0 - 0.70 Complete Blood Count + Differential 0.62 {x10E9/L} See Below MP-[facility] Work Phone: Comment on above: Reference Range: 0.1 0 - 1.00 Complete Blood Count + Differential 2.27 {x10E9/L} See Below -Pain Management-[facility] Work Phone: Comment on above: Reference Range: 1.2 0 - 4.80 Complete Blood Count + Differential 4.95 {x10E9/L} See Below -Pain Management-[facility] Work Phone: Comment on above: Reference Range: 1.2 0 - 7.70 Complete Blood Count + Differential 3.2 % 0.0 - 6.0 -Pain Management-[facility] Work Phone: Complete Blood Count + Differential 0.5 % 0.0 - 0.9 -Pain Management-[facility] Work Phone: Comment on above: Immature Granulocyte Count (IG) includes promyelocytes, myelocytes and metamyelocytes but does not include bands. Percent differential counts (%) should be interpreted in the context of the absolute cell counts (cells/L). Complete Blood Count + Differential 0.0 {/100_WBC} 0.0-0.0 -Pain Management-[facility] Work Phone: Cult, Urineon 9 Bacteria identified Cx Nom (U) [facility] Work Phone: Hepatic Function Panelon 6 Albumin BCP dye [Mass/Vol] 4.6 g/dL 3.4 - 5.0 -Pain Management-[facility] Work Phone: ALP [Catalytic activity/Vol] 77 U/L 33 - 110 -Pain Management-[facility] Work Phone: ALT With P-5'-P [Catalytic activity/Vol] 89 U/L above high threshold 7 - 45 -Pain [facility] Work Phone: Comment on above: Patients treated wit h Sulfasalazine may generate falsely decreased results for ALT. AST With P-5'-P [Catalytic activity/Vol] 96 U/L above high threshold 9 - 39 -Pain Management-[facility] Work Phone: Comment on above: MILD HEMOLYSIS DETEC DEYANIRA. The result may be falsely elevated due tohemolysis or other interferents. Clinical correlation is recommended.Repeat testing may be considered. Bilirubin [Mass/Vol] 0.5 mg/dL 0.0 - 1.2 MP-P ain [facility] Work Phone: Bilirubin.direct [Mass/Vol] 0.1 mg/dL 0.0 - 0.3 MP-Pain [facility] Work Phone: Comment on above: MILD HEMOLYSIS DETEC DEYANIRA. The result may be falsely decreased due tohemolysis or other interferents. Clinical correlation is recommended.Repeat testing may be considered. Protein [Mass/Vol] 7.8 g/dL 6.4 - 8.2 MP-Colin n [facility] Work Phone: Hepatitis Panel, Acute (HCFA )on 04-26-2023 HAV IgM IA Ql Non-Reactive See Below [facility] Work Phone: Comment on above: SOURCE: Reference Ra nge: NONREACTIVE Biotin interference may cause falsely decreased results. Patients taking a Biotin dose of up to 5 mg/day should refrain from taking Biotin for 24 hours before sample collection. Providers may contact their local laboratory for further information. Hepatitis Panel, Acute (HCFA) Non-Reactive See Below [facility] Work Phone: Comment on above: Reference [...] ABO group Nom (Bld) A MP-[facility] in [facility] Work Phone: Blood group antibody screen Ql Negative [facility] Work Phone: Rh immune globulin screen (Bld) [Interp] Negative -Pain Management-[facility] Work Phone: Comment on above: Review your Rh Negat rowena female patient's potential need for Rh Immune Globulin (RhIg)administration. Laboratory - Chemistry and C hemistry - challengeon 04-26-2023 Creatinine (U) [Mass/Vol] 64.6 mg/dL See Below -Pain Management-[facility] Work Phone: Comment on above: Reference Range: 20. 0 - 320.0 Sodium (U) [Moles/Vol] 28 mmol/L See Below -[facility] Work Phone: Comment on above: Reference Range: Not Established Sodium/Creatinine (U) [Ratio] 43 {mmol/g_Creat} See Below -Pain Management-[facility] Work Phone: Comment on above: Reference Range: Not Established Anion gap [Moles/Vol] 20 mmol/L 10 - 20 MP- [facility] Work Phone: Anion gap [Moles/Vol] 18 mmol/L 10 - 20 - Pain [facility] Work Phone: AST With P-5'-P [Catalytic activity/Vol] 99 U/L above high threshold 9 - 39 MP-Pain [facility] Work Phone: Comment on above: MILD HEMOLYSIS DETEC DEYANIRA. The result may be falsely elevated due tohemolysis or other interferents. Clinical correlation is recommended.Repeat testing may be considered. Calcium [Mass/Vol] 9.5 mg/dL 8.6 - 10.6 [facility] Work Phone: Calcium [Mass/Vol] 9.6 mg/dL 8.6 - 10.6 [facility] Work Phone: Chloride [Moles/Vol] 96 mmol/L below low threshold 98 - 107 MP-[facility] Work Phone: Chloride [Moles/Vol] 97 mmol/L below low threshold 98 - 107 MP-[facility] Work Phone: CO2 [Moles/Vol] 23 mmol/L 21 - 32 MP-Pain [facility] Work Phone: CO2 [Moles/Vol] 24 mmol/L 21 - 32 [facility] Work Phone: Creatinine [Mass/Vol] 0.68 mg/dL See Below MP- [facility] Work Phone: Comment on above: Reference Range: 0.5 0 - 1.05 Creatinine [Mass/Vol] 0.69 mg/dL See Below [facility] Work Phone: Comment on above: Reference Range: 0.5 0 - 1.05 Glucose [Mass/Vol] 153 mg/dL above high threshold 74 - 99 [facility] Work Phone: Glucose [Mass/Vol] 155 mg/dL above high threshold 74 - 99 [facility] Work Phone: Potassium [Moles/Vol] 4.6 mmol/L 3.5 - 5.3 [facility] Work Phone: Comment on above: MILD HEMOLYSIS DETEC DEYANIRA. The result may be falsely elevated due tohemolysis or other interferents. Clinical correlation is recommended.Repeat testing may be considered. Potassium [Moles/Vol] 4.3 mmol/L 3.5 - 5.3 [facility] Work Phone: Comment on above: MILD HEMOLYSIS DETEC DEYANIRA. The result may be falsely elevated due tohemolysis or other interferents. Clinical correlation is recommended.Repeat testing may be considered. Protein [Mass/Vol] 7.9 g/dL 6.4 - 8.2 MP-Colin n [facility] Work Phone: Sodium [Moles/Vol] 134 mmol/L below low threshold 136 - 145 [facility] Work Phone: Sodium [Moles/Vol] 135 mmol/L below low threshold 136 - 145 [facility] Work Phone: Urea nitrogen [Mass/Vol] 17 mg/dL 6 - 23 [facility] Work Phone: Laboratory - Coagulationon 0 04-26-2023 aPTT Coag (PPP) [Time] 30 s 27 - 38 [facility] Work Phone: Comment on above: Note new reference r soheila as of 03/08/2023 at 10:00am. INR Coag (PPP) [Relative time] 1.2 {INR} above high threshold 0.9 - 1.1 [facility] Work Phone: PT Coag (PPP) [Time] 13.3 s above high threshold 9.8 - 12.8 -[facility] Work Phone: Comment on above: Note new reference r soheila as of 03/08/2023 at 10:00am. Laboratory - Drug toxicology on 04-26-2023 Amphetamines Screen Ql (U) Negative NEGATIVE -[facility] Work Phone: Comment on above: CUTOFF LEVEL: 500 NG /ML Cross-reactivity has been reported with high concentrations of the following drugs: buproprion, chloroquine, chlorpromazine, ephedrine, mephentermine, fenfluramine, phentermine, phenylpropanolamine, pseudoephedrine, and propranolol. Barbiturates Screen Ql (U) Negative NEGATIVE -[facility] Work Phone: Comment on above: CUTOFF LEVEL: 200 NG /ML Benzodiazepines Ql (U) Negative NEGATIVE -[facility] Work Phone: Comment on above: CUTOFF LEVEL: 200 NG /ML Benzoylecgonine Screen Ql (U) Negative NEGATIVE [facility] Work Phone: Comment on above: CUTOFF LEVEL: 150 NG /ML Cannabinoids Screen Ql (U) Positive Abnormal NEGATIVE [facility] Work Phone: Comment on above: CUTOFF LEVEL: 50 NG/ ML Methadone Screen Ql (U) Negative NEGATIVE [facility] Work Phone: Comment on above: CUTOFF LEVEL: 150 NG /ML The metabolite E-zlaxg-aeevmcinowezuz (LAAM) is not detected by this method in concentrations that would be found in the urine of patients on LAAM therapy. Opiates Screen Ql (U) Positive Abnormal NEGATIVE [facility] Work Phone: Comment on above: CUTOFF LEVEL: 300 NG /ML The opiate screen does not detect fentanyl, meperidine, or tramadol. Oxycodone is not consistently detected (refer to Oxycodone Screen, Urine result). oxyCODONE+oxyMORphone Screen Ql (U) Positive Abnormal NEGATIVE MP-[facility] Work Phone: Comment on above: CUTOFF LEVEL: 100 NG /ML This test will accurately detect both oxycodone and oxymorphone. Phencyclidine Ql (U) Negative NEGATIVE MP-P ain [facility] Work Phone: Comment on above: CUTOFF LEVEL: 25 NG/ ML Cross-reactivity has been reported with dextromethorphan. Lactate, Levelon 04-26-2023 Lactate [Moles/Vol] Canceled MP-Pa in Management-[facility] Work Phone: Comment on above: Venipuncture immedia tely after or during the administration of Metamizole may lead to falsely low results. Testing should be performed immediately prior to Metamizole dosing. Lactate [Moles/Vol] 2.9 mmol/L above high threshold 0.4 - 2.0 [facility] Work Phone: Comment on above: Venipuncture immedia tely after or during the administration of Metamizole may lead to falsely low results. Testing should be performed immediately prior to Metamizole dosing. Lipase, Serumon 04-26-2023 Lipase [Catalytic activity/Vol] 73 U/L 9 - 82 [facility] [place] Phone: Comment on above: Venipuncture immedia tely after or during the administration of Metamizole may lead to falsely low results. Testing should be performed immediately prior to Metamizole dosing. L-gcudbc-b-benzoquinone imine (metabolite of Acetaminophen) will generate erroneously low results in samples for patients that have taken toxic doses of acetaminophen. No Panel Informationon 04-26 74 {mmol/g_Creat} 38 - 318 [facility] [place] Phone: 48 mmol/L See Below [facility] [place] Phone: Comment on above: Reference Range: Not Established SEE BELOW [facility] [place] Phone: Comment on above: Drug screen results are presumptive and should not be used to assess compliance with prescribed medication. Contact the performing [facility] laboratory to add-on definitive confirmatory testing if [...] link to view the study images Normal [facility] [place] Phone: [email or web address]&Date=04-26-2023&Johnathan [email or web address]&Peggy tType=ECG&Site=1&Output Type=PDF&Ext=PDF [facility] Work Phone: Please see ED Provid er Note for formal interpretation [facility] [place] Work Phone: Normal [facility] [place] Work Phone: [phone] [facility] [place] Work Phone: [phone] [facility] [place] Work Phone: 202 1 [facility] [place] Work Phone: 142 1 [facility] Work Phone: 220 1 [facility] [place] Work Phone: 16 1 [facility] [place] Work Phone: 30 1 [facility] [place] Work Phone: 27 1 [facility] [place] Work Phone: 36 1 [facility] Work Phone: 464 1 [facility] [place] Work Phone: 364 1 [facility] [place] Work Phone: 92 1 [facility] [place] Work Phone: 156 1 [facility] [place] Work Phone: 98 1 [facility] [place] Work Phone: >90 >90 [facility] [place] Work Phone: Comment on above: CALCULATIONS OF ESTUARDO MATED GFR ARE PERFORMED USING THE 2020 CKD-EPI STUDY REFIT EQUATION WITHOUT THE RACE VARIABLE FOR THE IDMS-TRACEABLE CREATININE METHODS.https://jasn.asnjournals.org/content// N.8074176470 URINALYSIS WITH CULTURE IF I NDICATEDon 04-26-2023 Color (U) YELLOW See Below [facility] [employer] [facility] Work Phone: Comment on above: Reference Range: STR AW,YELLOW Glucose Ql (U) Negative NEGATIVE [facility] [place] [facility] [facility] Work Phone: Ketones Ql (U) Negative NEGATIVE [facility] Work Phone: Leukocyte esterase Test strip Ql (U) TRACE Abnormal NEGATIVE [facility] [facility] Work Phone: pH (U) 5.0 [pH] 5.0 - 8.0 [facility] [place] [facility] Work Phone: Protein (U) [Mass/Vol] Negative NEGATIVE [facility] [place] [facility] [facility] Work Phone: RBC (U) [#/Vol] Negative NEGATIVE [facility] [employer] Work Phone: Specific gravity (U) [Rel density] 1.018 1 See Below -[facility] [place] [facility] Work Phone: Comment on above: Reference Range: 1.0 05 - 1.035 URINALYSIS WITH CULTURE IF INDICATED Negative NEGATIVE [facility] [place] [facility] Work Phone: Comment on above: CUTOFF LEVEL: 5 NG/M L URINALYSIS WITH CULTURE IF INDICATED <2.0 0.0 - 1.9 [facility] [place] [facility] [facility] Work Phone: URINALYSIS WITH CULTURE IF INDICATED HAZY CLEAR [facility] [place] [facility] Work Phone: Urinalysison 04-26-2023 Appearance (U) Canceled [facility] Work Phone: Color (U) Canceled [facility] Work Phone: Glucose Ql (U) Canceled [facility] Work Phone: Ketones Ql (U) Canceled [facility] Work Phone: Leukocyte esterase Test strip Ql (U) Canceled [facility] Work Phone: Protein (U) [Mass/Vol] Canceled [facility] Work Phone: RBC (U) [#/Vol] Canceled [facility] Work Phone: Specific gravity (U) [Rel density] Canceled [facility] Work Phone: Urinalysis Canceled -[facility] Work Phone: Comment on above: Concentrations > = 2 0 mg/dL of ascorbic acid can be expected to cause strong interference in the reactions testing for glucose, nitrite and blood. It is recommended to discontinue Vitamin C administration and retest in 10 hours. Urinalysis, Microscopicon Hyaline casts LM Ql (Urine sed) 1+ Abnormal [facility] Work Phone: Urinalysis, Microscopic 1+ [facility] Work Phone: Urinalysis, Microscopic <1 [facility] Work Phone: Urinalysis, Microscopic 17 {/HPF} [facility] Work Phone: Urinalysis, Microscopic 1 {/HPF} 0-5 [facility] Work Phone: Urinalysis, Microscopic 9 {/HPF} Abnormal 0-5 [facility] Work Phone: .Auto Diffon 04-25-2023 Basophil, Absolute 0.0 10 3/mcL Normal 0.0-0.2 [facility] ([place]) Comment on above: Performed By: #### U A, PREGU #### Sean [address] [place], [place] [address] Basophils/100 WBC (Bld) 0.4 % Normal 0.0-2.5 [facility] ([place]) Comment on above: Performed By: #### U A, PREGU #### Sean Davisillon [address] [place], [place] [address] Eosinophil, Absolute 0.4 10 3/mcL Normal 0.0-0.4 [facility] ([place]) Comment on above: Performed By: #### U A, PREGU #### Sean [address] [place], [place] [address] Eosinophils/100 WBC (Bld) 2.9 % Normal 0.0-7.0 [facility] ([place]) Comment on above: Performed By: #### U A, PREGU #### Sean [address] [place], [place] [address] Lymphocyte, Absolute 3.5 10 3/mcL Normal 0.8-3.9 [facility] ([place]) Comment on above: Performed By: #### U A, PREGU #### Sean [address] [place], [place] [address] Lymphocytes/100 WBC (Bld) 25.5 % Normal 10.0-50.0 [facility] ([place]) Comment on above: Performed By: #### U A, PREGU #### Sean [address] [place], [place] [address] Monocyte, Absolute 0.8 10 3/mcL Normal 0.2-1.0 [facility] ([place]) Comment on above: Performed By: #### U A, PREGU #### Sean [address] [place], [place] [address] Monocytes/100 WBC (Bld) 6.2 % Normal 1.7-13.0 [facility] ([place] Comment on above: Performed By: #### U A, PREGU #### Sean Venus [address] [place], [place] [address] Neutrophils/100 WBC (Bld) 64.8 % Normal 37.0-80.0 [facility] ([place]) Comment on above: Performed By: #### U A, PREGU #### Sean Venus [address] [place], [place] [address] .GFRon 04-25-2023 GFR 79 ml/min/1.73sqm Normal [facility] ([place]) Comment on above: Result Comment: GFR Population [...] Performed By: #### U A, PREGU #### [facility] [address] [place], [place] [address] GFR Non- 65 ml/min/1.73sqm Normal [facility] ([place]) Comment on above: Result Comment: GFR Population [...] By: #### U A, PREGU #### Seanoz DavisVenus [address] [place] [address] .MDWon 04-25-2023 Monocyte Distribution Width 20.55 High 0.00-20.00 [facility] ([place] Comment on above: Result Comment: For adults in ED, MDW>20.0 may be associated with a higher risk of sepsis during the first 12hrs of hospital admission Performed By: #### U A, PREGU #### Sean [address] [place] [address] .Morphon 04-25-2023 Platelet Estimate Increased Normal [facility] ([place]) Comment on above: Performed By: #### U A, PREGU #### Seanoz Loaizan [address] [place] [address] .NEUABSon 04-25-2023 Neutrophil, Absolute 9.0 10 3/mcL High 2.9-6.2 [facility] ([place]) Comment on above: Performed By: #### U A, PREGU #### Seanoz DavisVenus [address] [place] [id number] .Urinalysis Microscopic (AO) on 04-25-2023 UA Bacteria Trace Abnormal [facility] ([place]) Comment on above: Performed By: #### U A, PREGU #### Seanoz [address]Venus [address] [place], [place] [address] UA Hyal Cast 0-5 Abnormal [facility] ([place]) Comment on above: Performed By: #### U A, PREGU #### Sean Venus [address] [place], [place] [address] UA RBC 0-5 Abnormal None Seen [facility] ([place] Comment on above: Performed By: #### U A, PREGU #### Seanoz [address]Venus [address] [place], [place] [address] UA Squam Epithelial 5-10 Abnormal None Seen [facility] ([place]) Comment on above: Performed By: #### U A, PREGU #### [facility] [address] [place], [place] [address] UA WBC 0-5 Abnormal None Seen [facility] ([place] Comment on above: Performed By: #### U A, PREGU #### [facility] [address] [place], [place] [address] CBCon 04-25-2023 Erythrocyte distribution width (RBC) [Ratio] 12.4 % Normal 11.5-14.5 [facility] ([place] Comment on above: Performed By: #### U A, PREGU #### Seanoz Loaizan [address] [place], [place] [address] Hematocrit (Bld) [Volume fraction] 46.7 % Normal 37.0-47.0 [facility] ([place] Comment on above: Performed By: #### U A, PREGU #### [facility] [address] [place], [place] [address] Hgb 15.5 G/dL Normal 12.0-16.0 [facility] ([place] Comment on above: Performed By: #### U A, PREGU #### Woolwine Venus [address] [place], [place] [address] MCH (RBC) [Entitic mass] 30.6 pg Normal 27.0-31.2 [facility] ([place] Comment on above: Performed By: #### U A, PREGU #### [facility] [address] [place], [place] [address] MCHC 33.3 G/dL Normal 33.0-37.0 [facility] ([place] Comment on above: Performed By: #### U A, PREGU #### Woolwine Venus [address] [place], [place] [address] MCV (RBC) [Entitic vol] 91.9 fL Normal 80.0-94.0 [facility] ([place]) Comment on above: Performed By: #### U A, PREGU #### [facility] [address] [place], [place] [address] Platelet 471 10 3/mcL High 130-400 [facility] ([place]) Comment on above: Performed By: #### U A, PREGU #### Sean Reynolds [address] [place], [place] [address] Platelet mean volume (Bld) [Entitic vol] 6.9 fL Low 7.4-10.4 [facility] ([place]) Comment on above: Performed By: #### U A, PREGU #### Sean Loaizan [address] [place], [place] [address] RBC 5.08 10 6/mcL Normal 4.20-5.40 [facility] ([place]) Comment on above: Performed By: #### U A, PREGU #### Sean Loaizan [address] [place], [place] [address] WBC 14.0 10 3/mcL High 4.6-10.8 [facility] ([place]) Comment on above: Performed By: #### U A, PREGU #### Seanoz DavisVenus [address] [place], [place] [address] CMPon 04-25-2023 Albumin Level 4.8 G/dL Normal 3.5-5.0 [facility] ([place]) Comment on above: Performed By: #### U A, PREGU #### Sean Davisillon [address] [place], [place] [address] Albumin/Globulin [Mass ratio] 1.2 {ratio} Normal 1.1-2.5 [facility] ([place] Comment on above: Performed By: #### U A, PREGU #### Sean Loaizan [address] [place], [place] [address] ALP [Catalytic activity/Vol] 98 U/L Normal 40-135 [facility] ([place]) Comment on above: Performed By: #### U A, PREGU #### Sean [address] [place], [place] [address] ALT [Catalytic activity/Vol] 99 U/L High 14-59 [facility] ([place] Comment on above: Performed By: #### U A, PREGU #### Seanoz Loaizan [address] [place], [place] [address] AST [Catalytic activity/Vol] 89 U/L High 10-40 [facility] ([place]) Comment on above: Performed By: #### U A, PREGU #### Seanoz Loaizan [address] [place], [place] [address] Bili Total 0.5 mg/dL Normal 0.2-1.0 [facility] ([place]) Comment on above: Result Comment: Use of this assay is not recommended for patients undergoing treatment with eltrombopag due to the potential for falsely elevated results. Performed By: #### U A, PREGU #### Seanoz Loaizan [address] [place], [place] [address] BUN/Creatinine Ratio 24 ratio Normal 7-27 [facility] ([place]) Comment on above: Performed By: #### U A, PREGU #### [facility] [address] [place], [place] [address] Calcium [Mass/Vol] 9.9 mg/dL Normal 8.4-10.2 [facility] ([place]) Comment on above: Performed By: #### U A, PREGU #### Woolwine Venus [address] [place], [place] [address] Chloride [Moles/Vol] 100 mmol/L Normal 98-107 [facility] ([place]) Comment on above: Performed By: #### U A, PREGU #### Wool[place] Venus [address] [place], [place] [address] CO2 [Moles/Vol] 23 mmol/L Normal 22-29 [facility] ([place]) Comment on above: Performed By: #### U A, PREGU #### Seanoz Loaizan [address] [place], [place] [address] Creatinine [Mass/Vol] 0.92 mg/dL Normal 0.55-1.02 [facility] ([place]) Comment on above: Performed By: #### U A, PREGU #### Sean Venus [address] [place], [place] [address] Electrolyte Balance 13.0 mEq/L Normal 4.0-15.0 [facility] ([place]) Comment on above: Performed By: #### U A, PREGU #### Sean Reynolds [address] [place], [place] [address] Globulin 4.1 G/dL Normal [facility] ([place]) Comment on above: Performed By: #### U A, PREGU #### Sean Reynolds [address] [place], [place] [address] Glucose [Mass/Vol] 150 mg/dL High 70-105 [facility] ([place]) Comment on above: Performed By: #### U A, PREGU #### Sean Reynolds [address] [place], [place] [address] Potassium [Moles/Vol] 4.8 mmol/L Normal 3.5-5.1 [facility] ([place]) Comment on above: Performed By: #### U A, PREGU #### Sean Loaizan [address] [place], [place] [address] Sodium [Moles/Vol] 136 mmol/L Normal 136-145 [facility] ([place]) Comment on above: Performed By: #### U A, PREGU #### Sean Reynolds [address] [place], [place] [address] Total Protein 8.9 G/dL High 6.4-8.2 [facility] ([place]) Comment on above: Performed By: #### U A, PREGU #### Sean Reynolds [address] [place], [place] [address] Urea nitrogen [Mass/Vol] 22 mg/dL High 7-18 [facility] ([place]) Comment on above: Performed By: #### U A, PREGU #### Sean Davisillon [address] [place], [place] [address] CT ABD/PELVIS W/ IV CONTRAST ONLYon 04-25-2023 [...] Date: 04/25/2023 1:29:18 AM Ordering Provider: [facility] ([place]) LABORATORYOrdered By: SYSTEM SYSTEM on 04-25-2023 Albumin [...] 04-25-2023 Lipase Level 46 U/L Normal 16-77 [facility] ([place]) Comment on above: Performed By: #### U A, PREGU #### Sean Venus [address] [place], [place] [address] No Panel Informationon 04-25 Please click on the link to view the study images Normal [facility] Work Phone: UAon 04-25-2023 Color (U) Yellow Normal [facility] ([place]) Comment on above: Performed By: #### U A, PREGU #### Sean Venus [address] [place], [place] [address] Glucose (U) [Mass/Vol] Negative Normal Negative [facility] ([place]) Comment on above: Performed By: #### U A, PREGU #### Sean Venus [address] [place], [place] [address] Ketones Ql (U) Negative Normal Negative [facility] ([place]) Comment on above: Performed By: #### U A, PREGU #### Sean Venus [address] [place], [place] [address] UA Appear Slightly Cloudy Abnormal Clear [facility] ([place]) Comment on above: Performed By: #### U A, PREGU #### Sean Venus [address] [place], [place] [address] UA Blood Negative Normal Negative [facility] ([place]) Comment on above: Performed By: #### U A, PREGU #### Sean Venus [address] [place], [place] [address] UA Leuk Est Negative Normal Negative [facility] ([place]) Comment on above: Performed By: #### U A, PREGU #### Sean Venus [address] [place], [place] [address] UA Nitrite Negative Normal Negative [facility] ([place]) Comment on above: Performed By: #### U A, PREGU #### Sean Venus [address] [place], [place] [address] UA pH 5.5 Normal 5.0 - 8.0 [facility] ([place]) Comment on above: Performed By: #### U A, PREGU #### Sean Venus [address] [place], [place] [address] UA Protein Negative Normal Negative [facility] ([place]) Comment on above: Performed By: #### U A, PREGU #### Sean Loaizan [address] [place], [place] [address] UA Spec Grav 1.020 Normal 1.015-1.025 [facility] ([place]) Comment on above: Performed By: #### U A, PREGU #### Sean Reynolds [address] [place], [place] [address] UA Specimen Type Clean Catch Normal [facility] ([place]) Comment on above: Performed By: #### U A, PREGU #### Seanoz Reynolds [address] [place], [place] [address] UA Urobilinogen 0.2 E.U./dL Normal 0.2-1.0 [facility] ([place]) Comment on above: Performed By: #### U A, PREGU #### Sean Reynolds [address] [place] [address] Urobilinogen (U) [Mass/Vol] Negative Normal Negative [facility] ([place]) Comment on above: Performed By: #### U A, PREGU #### Sean Venus [address] [place], [place] [address] HBCABon 04-05-2023 Hep B Core Ab Negative Normal Negative [facility] ([place]) Comment on above: Result Comment: No e vidence of current or past infection with Hepatitis B virus. Should recent infection be suspected, repeat testing may be considered 3-4 weeks after this draw. Performed By: [facility] [address] [place] [address] Lamp Cleaner: Miguel Blanco III#: [id number] Performed By: #### C K #### Sean [address] [address] ANAon 04-04-2023 Nuclear Ab IF (S) [Titer] 40 {titer} Normal Neg 40 [facility] ([place]) Comment on above: Result Comment: FERNANDA Screen and Titer methodology is an immunofluorescent technique utilizing Hep2 Substrate. Performed By: #### C K #### [address] [address] MITOon 04-04-2023 Mitochondrial Ab Neg 20 Normal Neg 20 [facility] ([place]) Comment on above: Result Comment: Frank chondrial Ab Screen and Titer methodology is an immunofluorescent technique utilizing MSK Substrate. Performed By: #### C K #### [address] [address] SMUSCon 04-04-2023 Smooth Muscle Ab Neg 20 Normal Neg 20 [facility] ([place]) Comment on above: Result Comment: Smoo th Muscle Ab Screen and Titer methodology is an immunofluorescent technique utilizing MSK Substrate. Performed By: #### C K #### [address] [address] AATon 04-02-2023 Alpha 1 Antitrypsin 204 mg/dL High 78-200 [facility] ([place]) Comment on above: Result Comment: No te - New Reference Range in effect 20 Performed By: #### C K #### [address] [address] CERULon 04-02-2023 Ceruloplasmin 37.0 mg/dL Normal 22.0-58.0 [facility] ([place]) Comment on above: Performed By: #### C K #### [address] [address] HEPACon 04-02-2023 Hep A IgM Ab Non-Reactive Normal Non-Reactive [facility] ([place]) Comment on above: Performed By: #### C K #### [address] [address] Hep A IgM Ab Int Normal [facility] ([place]) Comment on above: Result Comment: No s erological evidence of a current Hepatitis A infection. See Interp Performed By: #### C K #### [address] [address] Hep B Core IgM Ab Non-Reactive Normal Non-Reactive [facility] ([place]) Comment on above: Performed By: #### C K #### [address] [address] [address] Hep B Core IgM Ab Int Normal [facility] ([place]) Comment on above: Result Comment: Samp les with a value < 0.80 Index are considered nonreactive (negative) for IgM antibodies to hepatitis B core antigen. See Interp Performed By: #### C K #### [address] [address] Hep B Surf Ag Non-Reactive Normal Non-Reactive [facility] ([place]) Comment on above: Performed By: #### C K #### [address] [address] Hep C Ab Non-Reactive Normal Non-Reactive [facility] ([place]) Comment on above: Performed By: #### C K #### [address] [address] Hep C Ab Int Normal [facility] ([place]) Comment on above: Result Comment: Nonr eactive: Samples with a value < 0.80 are considered nonreactive (negative) for antibodies to HCV. A negative test result does not exclude the possibility of exposure to or infection with HCV. HCV antibodies may be undetectable in some stages of the infection and in some clinical conditions. See Interp Performed By: #### C K #### [address] [address] IMMUNon 04-02-2023 IgA [Mass/Vol] 153 mg/dL Normal 40-350 [facility] ([place]) Comment on above: Result Comment: No te - New Reference Range in effect 20 Performed By: #### C K #### [address] [address] IgG [Mass/Vol] 781 mg/dL Normal 650-1600 [facility] ([place]) Comment on above: Result Comment: No te - New Reference Range in effect 20 Performed By: #### C K #### [address] [address] IgM [Mass/Vol] 72 mg/dL Normal 50-300 [facility] ([place]) Comment on above: Result Comment: No te - New Reference Range in effect 20 Performed By: #### C K #### [id number] [place], [place] [address] LABORATORYOrdered By: SYSTEM SYSTEM on 04-02-2023 Alpha [...] 04-02-2023 Lipase Level 71 U/L High 12-53 [facility] ([place]) Comment on above: Result Comment: No te - New Reference Range in effect 20 Performed By: #### U Abigail PREGU #### [facility] [address] [place], [place] [address] .Auto Diffon 04-01-2023 Basophil, Absolute 0.1 10 3/mcL Normal 0.0-0.2 [facility] ([place]) Comment on above: Performed By: #### A DIFF, ANEU, CMP, MG, GFR, LD, CRP, CBC, ESR #### [address] [address] Basophils/100 WBC (Bld) 1.2 % Normal 0.0-2.5 [facility] ([place]) Comment on above: Performed By: #### A DIFF, ANEU, CMP, MG, GFR, LD, CRP, CBC, ESR #### [address] [address] Eosinophil, Absolute 0.3 10 3/mcL Normal 0.0-0.4 [facility] ([place]) Comment on above: Performed By: #### A DIFF, ANEU, CMP, MG, GFR, LD, CRP, CBC, ESR #### [address] [address] Eosinophils/100 WBC (Bld) 6.3 % Normal 0.0-7.0 [facility] ([place] Comment on above: Performed By: #### A DIFF, ANEU, CMP, MG, GFR, LD, CRP, CBC, ESR #### [address] [address] Lymphocyte, Absolute 1.4 10 3/mcL Normal 0.8-3.9 [facility] ([place] Comment on above: Performed By: #### A DIFF, ANEU, CMP, MG, GFR, LD, CRP, CBC, ESR #### [address] [address] Lymphocytes/100 WBC (Bld) 29.1 % Normal 10.0-50.0 [facility] ([place] Comment on above: Performed By: #### A DIFF, ANEU, CMP, MG, GFR, LD, CRP, CBC, ESR #### [address] [address] Monocyte, Absolute 0.3 10 3/mcL Normal 0.2-1.0 [facility] ([place] Comment on above: Performed By: #### A DIFF, ANEU, CMP, MG, GFR, LD, CRP, CBC, ESR #### [address] [address] Monocytes/100 WBC (Bld) 6.5 % Normal 1.7-13.0 [facility] ([place] Comment on above: Performed By: #### A DIFF, ANEU, CMP, MG, GFR, LD, CRP, CBC, ESR #### [address] [address] Neutrophils/100 WBC (Bld) 56.9 % Normal 37.0-80.0 [facility] ([place] Comment on above: Performed By: #### A DIFF, ANEU, CMP, MG, GFR, LD, CRP, CBC, ESR #### [address] [address] .GFRon 04-01-2023 GFR 116 ml/min/1.73sqm Normal [facility] ([place] Comment on above: Result Comment: GFR Population [...] MG, GFR, LD, CRP, CBC, ESR #### [address] [address] GFR Non- 96 ml/min/1.73sqm Normal [facility] ([place] Comment on above: Result Comment: GFR Population [...] MG, GFR, LD, CRP, CBC, ESR #### [address] [address] .NEUABSon 04-01-2023 Neutrophil, Absolute 2.7 10 3/mcL Low 2.9-6.2 [facility] ([place]) Comment on above: Performed By: #### A DIFF, ANEU, CMP, MG, GFR, LD, CRP, CBC, ESR #### [address] [address] CBCon 04-01-2023 Erythrocyte distribution width (RBC) [Ratio] 13.7 % Normal 11.5-14.5 [facility] ([place] Comment on above: Performed By: #### A DIFF, ANEU, CMP, MG, GFR, LD, CRP, CBC, ESR #### [address] [address] Hematocrit (Bld) [Volume fraction] 32.8 % Low 37.0-47.0 [facility] ([place] Comment on above: Performed By: #### A DIFF, ANEU, CMP, MG, GFR, LD, CRP, CBC, ESR #### [address] [address] Hgb 11.1 G/dL Low 12.0-16.0 [facility] ([place] Comment on above: Performed By: #### A DIFF, ANEU, CMP, MG, GFR, LD, CRP, CBC, ESR #### [address] [address] MCH (RBC) [Entitic mass] 31.6 pg High 27.0-31.2 [facility] ([place] Comment on above: Performed By: #### A DIFF, ANEU, CMP, MG, GFR, LD, CRP, CBC, ESR #### [address] [address] MCHC 33.7 G/dL Normal 33.0-37.0 [facility] ([place] Comment on above: Performed By: #### A DIFF, ANEU, CMP, MG, GFR, LD, CRP, CBC, ESR #### [address] [address] MCV (RBC) [Entitic vol] 93.7 fL Normal 80.0-94.0 [facility] ([place] Comment on above: Performed By: #### A DIFF, ANEU, CMP, MG, GFR, LD, CRP, CBC, ESR #### [address] [address] Platelet 265 10 3/mcL Normal 130-400 [facility] ([place]) Comment on above: Performed By: #### A DIFF, ANEU, CMP, MG, GFR, LD, CRP, CBC, ESR #### [address] [address] Platelet mean volume (Bld) [Entitic vol] 7.4 fL Normal 7.4-10.4 [facility] ([place]) Comment on above: Performed By: #### A DIFF, ANEU, CMP, MG, GFR, LD, CRP, CBC, ESR #### [address] [address] RBC 3.50 10 6/mcL Low 4.20-5.40 [facility] ([place]) Comment on above: Performed By: #### A DIFF, ANEU, CMP, MG, GFR, LD, CRP, CBC, ESR #### [address] [address] WBC 4.7 10 3/mcL Normal 4.6-10.8 [facility] ([place]) Comment on above: Performed By: #### A DIFF, ANEU, CMP, MG, GFR, LD, CRP, CBC, ESR #### [address] [address] CMPon 04-01-2023 Albumin Level 3.2 G/dL Low 3.5-5.0 [facility] ([place]) Comment on above: Performed By: #### A DIFF, ANEU, CMP, MG, GFR, LD, CRP, CBC, ESR #### [address] [address] Albumin/Globulin [Mass ratio] 1.2 {ratio} Normal 1.1-2.5 [facility] ([place]) Comment on above: Performed By: #### A DIFF, ANEU, CMP, MG, GFR, LD, CRP, CBC, ESR #### [address] [address] ALP [Catalytic activity/Vol] 111 U/L Normal 40-135 [facility] ([place]) Comment on above: Performed By: #### A DIFF, ANEU, CMP, MG, GFR, LD, CRP, CBC, ESR #### [address] [address] ALT [Catalytic activity/Vol] 273 U/L High 14-59 [facility] ([place] Comment on above: Performed By: #### A DIFF, ANEU, CMP, MG, GFR, LD, CRP, CBC, ESR #### [address] [address] AST [Catalytic activity/Vol] 118 U/L High 10-40 [facility] ([place] Comment on above: Performed By: #### A DIFF, ANEU, CMP, MG, GFR, LD, CRP, CBC, ESR #### [address] [address] Bili Total 0.5 mg/dL Normal 0.2-1.0 [facility] ([place]) Comment on above: Result Comment: Use of this assay is not recommended for patients undergoing treatment with eltrombopag due to the potential for falsely elevated results. Performed By: #### A DIFF, ANEU, CMP, MG, GFR, LD, CRP, CBC, ESR #### [address] [address] BUN/Creatinine Ratio 3 ratio Low 7-27 [facility] ([place]) Comment on above: Performed By: #### A DIFF, ANEU, CMP, MG, GFR, LD, CRP, CBC, ESR #### [address] [address] Calcium [Mass/Vol] 8.6 mg/dL Normal 8.4-10.2 [facility] ([place]) Comment on above: Performed By: #### A DIFF, ANEU, CMP, MG, GFR, LD, CRP, CBC, ESR #### [address] [address] Chloride [Moles/Vol] 107 mmol/L Normal 98-107 [facility] ([place]) Comment on above: Performed By: #### A DIFF, ANEU, CMP, MG, GFR, LD, CRP, CBC, ESR #### [address] [address] CO2 [Moles/Vol] 24 mmol/L Normal 22-29 [facility] ([place]) Comment on above: Performed By: #### A DIFF, ANEU, CMP, MG, GFR, LD, CRP, CBC, ESR #### [address] [address] Creatinine [Mass/Vol] 0.66 mg/dL Normal 0.55-1.02 [facility] ([place]) Comment on above: Performed By: #### A DIFF, ANEU, CMP, MG, GFR, LD, CRP, CBC, ESR #### [address] [address] Electrolyte Balance 12.0 mEq/L Normal 4.0-15.0 [facility] ([place] Comment on above: Performed By: #### A DIFF, ANEU, CMP, MG, GFR, LD, CRP, CBC, ESR #### [address] [address] Globulin 2.6 G/dL Normal [facility] ([place]) Comment on above: Performed By: #### A DIFF, ANEU, CMP, MG, GFR, LD, CRP, CBC, ESR #### [address] [address] Glucose [Mass/Vol] 122 mg/dL High 70-105 [facility] ([place]) Comment on above: Performed By: #### A DIFF, ANEU, CMP, MG, GFR, LD, CRP, CBC, ESR #### [address] [address] Potassium [Moles/Vol] 3.5 mmol/L Normal 3.5-5.1 [facility]) Comment on above: Performed By: #### A DIFF, ANEU, CMP, MG, GFR, LD, CRP, CBC, ESR #### [address] [address] Sodium [Moles/Vol] 143 mmol/L Normal 136-145 [facility] ([place]) Comment on above: Performed By: #### A DIFF, ANEU, CMP, MG, GFR, LD, CRP, CBC, ESR #### [address] [address] Total Protein 5.8 G/dL Low 6.4-8.2 [facility] ([place]) Comment on above: Performed By: #### A DIFF, ANEU, CMP, MG, GFR, LD, CRP, CBC, ESR #### [address] [address] Urea nitrogen [Mass/Vol] 2 mg/dL Low 7-18 [facility] ([place]) Comment on above: Performed By: #### A DIFF, ANEU, CMP, MG, GFR, LD, CRP, CBC, ESR #### [address] [address] MGon 04-01-2023 Magnesium [Mass/Vol] 1.9 mg/dL Normal 1.8-2.4 [facility] ([place]) Comment on above: Performed By: #### A DIFF, ANEU, CMP, MG, GFR, LD, CRP, CBC, ESR #### [address] [address] .Auto Diffon 03-31-2023 Basophil, Absolute 0.0 10 3/mcL Normal 0.0-0.2 [facility] ([place] Comment on above: Performed By: #### A DIFF, ANEU, CMP, MG, GFR, LD, CRP, CBC, ESR #### [address] [address] Basophils/100 WBC (Bld) 1.0 % Normal 0.0-2.5 [facility] ([place]) Comment on above: Performed By: #### A DIFF, ANEU, CMP, MG, GFR, LD, CRP, CBC, ESR #### [address] [address] Eosinophil, Absolute 0.2 10 3/mcL Normal 0.0-0.4 [facility] ([place]) Comment on above: Performed By: #### A DIFF, ANEU, CMP, MG, GFR, LD, CRP, CBC, ESR #### [address] [address] Eosinophils/100 WBC (Bld) 7.0 % Normal 0.0-7.0 [facility] ([place]) Comment on above: Performed By: #### A DIFF, ANEU, CMP, MG, GFR, LD, CRP, CBC, ESR #### [address] [address] Lymphocyte, Absolute 1.5 10 3/mcL Normal 0.8-3.9 [facility] ([place]) Comment on above: Performed By: #### A DIFF, ANEU, CMP, MG, GFR, LD, CRP, CBC, ESR #### [address] [address] Lymphocytes/100 WBC (Bld) 42.0 % Normal 10.0-50.0 [facility] ([place] Comment on above: Performed By: #### A DIFF, ANEU, CMP, MG, GFR, LD, CRP, CBC, ESR #### [address] [address] Monocyte, Absolute 0.3 10 3/mcL Normal 0.2-1.0 [facility] ([place]) Comment on above: Performed By: #### A DIFF, ANEU, CMP, MG, GFR, LD, CRP, CBC, ESR #### [address] [address] Monocytes/100 WBC (Bld) 7.7 % Normal 1.7-13.0 [facility] ([place] Comment on above: Performed By: #### A DIFF, ANEU, CMP, MG, GFR, LD, CRP, CBC, ESR #### [address] [address] Neutrophils/100 WBC (Bld) 42.3 % Normal 37.0-80.0 [facility] ([place] Comment on above: Performed By: #### A DIFF, ANEU, CMP, MG, GFR, LD, CRP, CBC, ESR #### [address] [address] .GFRon 03-31-2023 GFR Non- 92 ml/min/1.73sqm Normal [facility] ([place]) Comment on above: Result Comment: GFR Population [...] MG, GFR, LD, CRP, CBC, ESR #### [address] [address] GFR 112 ml/min/1.73sqm Normal [facility] ([place] Comment on above: Result Comment: GFR Population [...] MG, GFR, LD, CRP, CBC, ESR #### [address] [address] .NEUABSon 03-31-2023 Neutrophil, Absolute 1.5 10 3/mcL Low 2.9-6.2 [facility] ([place]) Comment on above: Performed By: #### A DIFF, ANEU, CMP, MG, GFR, LD, CRP, CBC, ESR #### [address] [address] CBCon 03-31-2023 Erythrocyte distribution width (RBC) [Ratio] 13.8 % Normal 11.5-14.5 [facility] ([place]) Comment on above: Performed By: #### A DIFF, ANEU, CMP, MG, GFR, LD, CRP, CBC, ESR #### [address] [address] Hematocrit (Bld) [Volume fraction] 33.2 % Low 37.0-47.0 [facility] ([place] Comment on above: Performed By: #### A DIFF, ANEU, CMP, MG, GFR, LD, CRP, CBC, ESR #### [address] [address] Hgb 11.1 G/dL Low 12.0-16.0 [facility] ([place] Comment on above: Performed By: #### A DIFF, ANEU, CMP, MG, GFR, LD, CRP, CBC, ESR #### [address] [address] MCH (RBC) [Entitic mass] 31.6 pg High 27.0-31.2 [facility] ([place] Comment on above: Performed By: #### A DIFF, ANEU, CMP, MG, GFR, LD, CRP, CBC, ESR #### [address] [address] MCHC 33.5 G/dL Normal 33.0-37.0 [facility] ([place] Comment on above: Performed By: #### A DIFF, ANEU, CMP, MG, GFR, LD, CRP, CBC, ESR #### [address] [address] MCV (RBC) [Entitic vol] 94.3 fL High 80.0-94.0 [facility] ([place] Comment on above: Performed By: #### A DIFF, ANEU, CMP, MG, GFR, LD, CRP, CBC, ESR #### [address] [address] Platelet 268 10 3/mcL Normal 130-400 [facility] ([place]) Comment on above: Performed By: #### A DIFF, ANEU, CMP, MG, GFR, LD, CRP, CBC, ESR #### [address] [address] Platelet mean volume (Bld) [Entitic vol] 6.6 fL Low 7.4-10.4 [facility] ([place]) Comment on above: Performed By: #### A DIFF, ANEU, CMP, MG, GFR, LD, CRP, CBC, ESR #### [address] [address] RBC 3.52 10 6/mcL Low 4.20-5.40 [facility] ([place]) Comment on above: Performed By: #### A DIFF, ANEU, CMP, MG, GFR, LD, CRP, CBC, ESR #### [address] [address] WBC 3.5 10 3/mcL Low 4.6-10.8 [facility] ([place]) Comment on above: Performed By: #### A DIFF, ANEU, CMP, MG, GFR, LD, CRP, CBC, ESR #### [address] [address] CMPon 03-31-2023 Albumin Level 3.1 G/dL Low 3.5-5.0 [facility] ([place]) Comment on above: Performed By: #### A DIFF, ANEU, CMP, MG, GFR, LD, CRP, CBC, ESR #### [address] [address] Albumin/Globulin [Mass ratio] 1.2 {ratio} Normal 1.1-2.5 [facility] ([place]) Comment on above: Performed By: #### A DIFF, ANEU, CMP, MG, GFR, LD, CRP, CBC, ESR #### [address] [address] ALP [Catalytic activity/Vol] 112 U/L Normal 40-135 [facility] ([place]) Comment on above: Performed By: #### A DIFF, ANEU, CMP, MG, GFR, LD, CRP, CBC, ESR #### [address] [address] ALT [Catalytic activity/Vol] 337 U/L High 14-59 [facility] ([place] Comment on above: Performed By: #### A DIFF, ANEU, CMP, MG, GFR, LD, CRP, CBC, ESR #### [address] [address] AST [Catalytic activity/Vol] 244 U/L High 10-40 [facility] ([place]) Comment on above: Performed By: #### A DIFF, ANEU, CMP, MG, GFR, LD, CRP, CBC, ESR #### [address] [address] Bili Total 0.6 mg/dL Normal 0.2-1.0 [facility] ([place]) Comment on above: Result Comment: Use of this assay is not recommended for patients undergoing treatment with eltrombopag due to the potential for falsely elevated results. Performed By: #### A DIFF, ANEU, CMP, MG, GFR, LD, CRP, CBC, ESR #### [address] [address] BUN/Creatinine Ratio 4 ratio Low 7-27 [facility] ([place]) Comment on above: Performed By: #### A DIFF, ANEU, CMP, MG, GFR, LD, CRP, CBC, ESR #### [address] [address] Calcium [Mass/Vol] 8.6 mg/dL Normal 8.4-10.2 [facility] ([place]) Comment on above: Performed By: #### A DIFF, ANEU, CMP, MG, GFR, LD, CRP, CBC, ESR #### [address] [address] Chloride [Moles/Vol] 107 mmol/L Normal 98-107 [facility] ([place]) Comment on above: Performed By: #### A DIFF, ANEU, CMP, MG, GFR, LD, CRP, CBC, ESR #### [address] [address] CO2 [Moles/Vol] 24 mmol/L Normal 22-29 [facility] ([place]) Comment on above: Performed By: #### A DIFF, ANEU, CMP, MG, GFR, LD, CRP, CBC, ESR #### [address] [address] Creatinine [Mass/Vol] 0.68 mg/dL Normal 0.55-1.02 [facility] ([place]) Comment on above: Performed By: #### A DIFF, ANEU, CMP, MG, GFR, LD, CRP, CBC, ESR #### [address] [address] Electrolyte Balance 11.0 mEq/L Normal 4.0-15.0 [facility] [place] Comment on above: Performed By: #### A DIFF, ANEU, CMP, MG, GFR, LD, CRP, CBC, ESR #### [address] [address] Globulin 2.5 G/dL Normal [facility] ([place]) Comment on above: Performed By: #### A DIFF, ANEU, CMP, MG, GFR, LD, CRP, CBC, ESR #### [address] [address] Glucose [Mass/Vol] 110 mg/dL High 70-105 [facility] ([place]) Comment on above: Performed By: #### A DIFF, ANEU, CMP, MG, GFR, LD, CRP, CBC, ESR #### [address] [address] Potassium [Moles/Vol] 3.8 mmol/L Normal 3.5-5.1 [facility] ([place]) Comment on above: Performed By: #### A DIFF, ANEU, CMP, MG, GFR, LD, CRP, CBC, ESR #### [address] [address] Sodium [Moles/Vol] 142 mmol/L Normal 136-145 [facility] ([place]) Comment on above: Performed By: #### A DIFF, ANEU, CMP, MG, GFR, LD, CRP, CBC, ESR #### [address] [address] Total Protein 5.6 G/dL Low 6.4-8.2 [facility] ([place]) Comment on above: Performed By: #### A DIFF, ANEU, CMP, MG, GFR, LD, CRP, CBC, ESR #### [address] [address] Urea nitrogen [Mass/Vol] 3 mg/dL Low 7-18 [facility] ([place]) Comment on above: Performed By: #### A DIFF, ANEU, CMP, MG, GFR, LD, CRP, CBC, ESR #### [address] [address] MGon 03-31-2023 Magnesium [Mass/Vol] 1.9 mg/dL Normal 1.8-2.4 [facility] ([place]) Comment on above: Performed By: #### A DIFF, ANEU, CMP, MG, GFR, LD, CRP, CBC, ESR #### [address] [address] .Auto Diffon 03-30-2023 Basophil, Absolute 0.1 10 3/mcL Normal 0.0-0.2 [facility] ([place]) Comment on above: Performed By: #### A DIFF, ANEU, CMP, MG, GFR, LD, CRP, CBC, ESR #### [address] [address] Basophils/100 WBC (Bld) 1.5 % Normal 0.0-2.5 [facility] ([place] Comment on above: Performed By: #### A DIFF, ANEU, CMP, MG, GFR, LD, CRP, CBC, ESR #### [address] [address] Eosinophil, Absolute 0.2 10 3/mcL Normal 0.0-0.4 [facility] ([place]) Comment on above: Performed By: #### A DIFF, ANEU, CMP, MG, GFR, LD, CRP, CBC, ESR #### [address] [address] Eosinophils/100 WBC (Bld) 5.4 % Normal 0.0-7.0 [facility] ([place]) Comment on above: Performed By: #### A DIFF, ANEU, CMP, MG, GFR, LD, CRP, CBC, ESR #### [address] [address] Lymphocyte, Absolute 1.4 10 3/mcL Normal 0.8-3.9 [facility] ([place]) Comment on above: Performed By: #### A DIFF, ANEU, CMP, MG, GFR, LD, CRP, CBC, ESR #### [address] [address] Lymphocytes/100 WBC (Bld) 35.7 % Normal 10.0-50.0 [facility] ([place] Comment on above: Performed By: #### A DIFF, ANEU, CMP, MG, GFR, LD, CRP, CBC, ESR #### [address] [address] Monocyte, Absolute 0.4 10 3/mcL Normal 0.2-1.0 [facility] ([place]) Comment on above: Performed By: #### A DIFF, ANEU, CMP, MG, GFR, LD, CRP, CBC, ESR #### [address] [address] Monocytes/100 WBC (Bld) 9.5 % Normal 1.7-13.0 [facility] ([place]) Comment on above: Performed By: #### A DIFF, ANEU, CMP, MG, GFR, LD, CRP, CBC, ESR #### [address] [address] Neutrophils/100 WBC (Bld) 47.9 % Normal 37.0-80.0 [facility] ([place]) Comment on above: Performed By: #### A DIFF, ANEU, CMP, MG, GFR, LD, CRP, CBC, ESR #### [address] [address] .GFRon 03-30-2023 GFR 106 ml/min/1.73sqm Normal [facility] ([place]) Comment on above: Result Comment: GFR Population [...] MG, GFR, LD, CRP, CBC, ESR #### [address] [address] GFR Non- 88 ml/min/1.73sqm Normal [facility] ([place] Comment on above: Result Comment: GFR Population [...] MG, GFR, LD, CRP, CBC, ESR #### [address] [address] .NEUABSon 03-30-2023 Neutrophil, Absolute 1.9 10 3/mcL Low 2.9-6.2 [facility] ([place]) Comment on above: Performed By: #### A DIFF, ANEU, CMP, MG, GFR, LD, CRP, CBC, ESR #### [address] [address] A1Con 03-30-2023 HbA1c (Bld) [Mass fraction] 5.9 % Normal 4.3-6.4 [facility] ([place]) Comment on above: Performed By: #### A DIFF, ANEU, CMP, MG, GFR, LD, CRP, CBC, ESR #### [address] [address] CBCon 03-30-2023 Erythrocyte distribution width (RBC) [Ratio] 13.5 % Normal 11.5-14.5 [facility] ([place] Comment on above: Performed By: #### A DIFF, ANEU, CMP, MG, GFR, LD, CRP, CBC, ESR #### [address] [address] Hematocrit (Bld) [Volume fraction] 34.7 % Low 37.0-47.0 [facility] ([place] Comment on above: Performed By: #### A DIFF, ANEU, CMP, MG, GFR, LD, CRP, CBC, ESR #### [place] [address]67 Hgb 11.6 G/dL Low 12.0-16.0 [facility] ([place] Comment on above: Performed By: #### A DIFF, ANEU, CMP, MG, GFR, LD, CRP, CBC, ESR #### [place] [address]67 MCH (RBC) [Entitic mass] 31.3 pg High 27.0-31.2 [facility] ([place] Comment on above: Performed By: #### A DIFF, ANEU, CMP, MG, GFR, LD, CRP, CBC, ESR #### [place] [address] MCHC 33.3 G/dL Normal 33.0-37.0 [facility] ([place] Comment on above: Performed By: #### A DIFF, ANEU, CMP, MG, GFR, LD, CRP, CBC, ESR #### [place] [address] MCV (RBC) [Entitic vol] 94.0 fL Normal 80.0-94.0 [facility] ([place] Comment on above: Performed By: #### A DIFF, ANEU, CMP, MG, GFR, LD, CRP, CBC, ESR #### [place] [address]67 Platelet 281 10 3/mcL Normal 130-400 [facility] ([place]) Comment on above: Performed By: #### A DIFF, ANEU, CMP, MG, GFR, LD, CRP, CBC, ESR #### [place] [id number] Platelet mean volume (Bld) [Entitic vol] 6.7 fL Low 7.4-10.4 [facility] ([place]) Comment on above: Performed By: #### A DIFF, ANEU, CMP, MG, GFR, LD, CRP, CBC, ESR #### [place] [id number] RBC 3.69 10 6/mcL Low 4.20-5.40 [facility] ([place]) Comment on above: Performed By: #### A DIFF, ANEU, CMP, MG, GFR, LD, CRP, CBC, ESR #### [address] [address] WBC 4.0 10 3/mcL Low 4.6-10.8 [facility] ([place]) Comment on above: Performed By: #### A DIFF, ANEU, CMP, MG, GFR, LD, CRP, CBC, ESR #### [address] [address] CMPon 03-30-2023 Albumin Level 3.3 G/dL Low 3.5-5.0 [facility] ([place]) Comment on above: Performed By: #### A DIFF, ANEU, CMP, MG, GFR, LD, CRP, CBC, ESR #### [address] [address] Albumin/Globulin [Mass ratio] 1.3 {ratio} Normal 1.1-2.5 [facility] ([place]) Comment on above: Performed By: #### A DIFF, ANEU, CMP, MG, GFR, LD, CRP, CBC, ESR #### [address] [address] ALP [Catalytic activity/Vol] 100 U/L Normal 40-135 [facility] ([place]) Comment on above: Performed By: #### A DIFF, ANEU, CMP, MG, GFR, LD, CRP, CBC, ESR #### [address] [address] ALT [Catalytic activity/Vol] 270 U/L High 14-59 [facility] ([place]) Comment on above: Performed By: #### A DIFF, ANEU, CMP, MG, GFR, LD, CRP, CBC, ESR #### [address] [address] AST [Catalytic activity/Vol] 249 U/L High 10-40 [facility] ([place]) Comment on above: Performed By: #### A DIFF, ANEU, CMP, MG, GFR, LD, CRP, CBC, ESR #### [address] [address] Bili Total 0.5 mg/dL Normal 0.2-1.0 [facility] ([place]) Comment on above: Result Comment: Use of this assay is not recommended for patients undergoing treatment with eltrombopag due to the potential for falsely elevated results. Performed By: #### A DIFF, ANEU, CMP, MG, GFR, LD, CRP, CBC, ESR #### [address] [address] BUN/Creatinine Ratio 8 ratio Normal 7-27 [facility] ([place]) Comment on above: Performed By: #### A DIFF, ANEU, CMP, MG, GFR, LD, CRP, CBC, ESR #### [address] [address] Calcium [Mass/Vol] 9.1 mg/dL Normal 8.4-10.2 [facility] ([place]) Comment on above: Performed By: #### A DIFF, ANEU, CMP, MG, GFR, LD, CRP, CBC, ESR #### [address] [address] Chloride [Moles/Vol] 105 mmol/L Normal 98-107 [facility] ([place]) Comment on above: Performed By: #### A DIFF, ANEU, CMP, MG, GFR, LD, CRP, CBC, ESR #### [address] [address] CO2 [Moles/Vol] 28 mmol/L Normal 22-29 [facility] ([place]) Comment on above: Performed By: #### A DIFF, ANEU, CMP, MG, GFR, LD, CRP, CBC, ESR #### [address] [address] Creatinine [Mass/Vol] 0.71 mg/dL Normal 0.55-1.02 [facility] ([place]) Comment on above: Performed By: #### A DIFF, ANEU, CMP, MG, GFR, LD, CRP, CBC, ESR #### [address] [address] Electrolyte Balance 9.0 mEq/L Normal 4.0-15.0 [facility] ([place] Comment on above: Performed By: #### A DIFF, ANEU, CMP, MG, GFR, LD, CRP, CBC, ESR #### [address] [address] Globulin 2.6 G/dL Normal [facility] ([place]) Comment on above: Performed By: #### A DIFF, ANEU, CMP, MG, GFR, LD, CRP, CBC, ESR #### [address] [address] Glucose [Mass/Vol] 110 mg/dL High 70-105 [facility] ([place]) Comment on above: Performed By: #### A DIFF, ANEU, CMP, MG, GFR, LD, CRP, CBC, ESR #### [address] [address] Potassium [Moles/Vol] 4.0 mmol/L Normal 3.5-5.1 [facility] ([place]) Comment on above: Performed By: #### A DIFF, ANEU, CMP, MG, GFR, LD, CRP, CBC, ESR #### [address] [address] Sodium [Moles/Vol] 142 mmol/L Normal 136-145 [facility] ([place] Comment on above: Performed By: #### A DIFF, ANEU, CMP, MG, GFR, LD, CRP, CBC, ESR #### [address] [address] Total Protein 5.9 G/dL Low 6.4-8.2 [facility] ([place]) Comment on above: Performed By: #### A DIFF, ANEU, CMP, MG, GFR, LD, CRP, CBC, ESR #### [address] [address] Urea nitrogen [Mass/Vol] 6 mg/dL Low 7-18 [facility] ([place] Comment on above: Performed By: #### A DIFF, ANEU, CMP, MG, GFR, LD, CRP, CBC, ESR #### [place] [id number] Delores 03-30-2023 Ferritin [Mass/Vol] 69.0 ng/mL Normal 8.0-252.0 [facility] [place] Comment on above: Performed By: #### A DIFF, ANEU, CMP, MG, GFR, LD, CRP, CBC, ESR #### [place] [address] FESon 03-30-2023 Iron [Mass/Vol] 106 ug/dL Normal 50-170 [facility] ([place] Comment on above: Performed By: #### A DIFF, ANEU, CMP, MG, GFR, LD, CRP, CBC, ESR #### [place] [address] Iron Sat 28 % Normal [facility] ([place] Comment on above: Performed By: #### A DIFF, ANEU, CMP, MG, GFR, LD, CRP, CBC, ESR #### [place] [address] TIBC 372 mcg/dL Normal 250-450 [facility] ([place] Comment on above: Performed By: #### A DIFF, ANEU, CMP, MG, GFR, LD, CRP, CBC, ESR #### [place] [address] LIPIDon 03-30-2023 Cholesterol [Mass/Vol] 188 mg/dL Normal 0-200 [facility] ([place] Comment on above: Result Comment: Chol esterol Reference Interval: Less than 200 Desirable 200-239 Borderline high risk 240 and above High risk Performed By: #### A DIFF, ANEU, CMP, MG, GFR, LD, CRP, CBC, ESR #### [place] [address] Cholesterol in HDL [Mass/Vol] 29 mg/dL Low 40-60 [facility] ([place] Comment on above: Performed By: #### A DIFF, ANEU, CMP, MG, GFR, LD, CRP, CBC, ESR #### [address] [address] Cholesterol in LDL [Mass/Vol] 131 mg/dL High 0-130 [facility] ([place] Comment on above: Performed By: #### A DIFF, ANEU, CMP, MG, GFR, LD, CRP, CBC, ESR #### Sean [address] [address] Triglyceride [Mass/Vol] 139 mg/dL Normal 0-150 [facility] ([place] Comment on above: Result Comment: Trig lyceride Reference Interval: Less than 150 Normal 150-199 Borderline high risk 200-499 High risk 500 or higher Very high risk Performed By: #### A DIFF, ANEU, CMP, MG, GFR, LD, CRP, CBC, ESR #### Sean [address] [address] MGon 03-30-2023 Magnesium [Mass/Vol] 1.9 mg/dL Normal 1.8-2.4 [facility] ([place] Comment on above: Performed By: #### A DIFF, ANEU, CMP, MG, GFR, LD, CRP, CBC, ESR #### [address] [address] TOXSCon 03-30-2023 U Ampheta (AO) Negative Normal [facility] ([place]) Comment on above: Performed By: #### U A, PREGU #### [address] [place], [place] [address] U Angy (AO) Negative Normal [facility] ([place]) Comment on above: Performed By: #### U A, PREGU #### [address] [place], [place] [address] U Narinder (AO) Negative Normal [facility] ([place]) Comment on above: Performed By: #### U A, PREGU #### [address] [place], [place] [address] U Cannab (AO) Negative Normal [facility] ([place]) Comment on above: Performed By: #### U A, PREGU #### [address] [place], [place] [address] U Cocaine (AO) Negative Normal [facility] ([place]) Comment on above: Performed By: #### U A, PREGU #### Sean [address] [place], [place] [address] U Methadone (AO) Negative Normal [facility] ([place]) Comment on above: Performed By: #### U A, PREGU #### [address] [place], [place] [address] U PCP (AO) Negative Normal [facility] ([place]) Comment on above: Performed By: #### U A, PREGU #### [address] [place], [place] [address] U TCA (AO) Negative Normal [facility] ([place]) Comment on above: Performed By: #### U A, PREGU #### [address] [place], [place] [address] Urine Opiates (AO) Positive Normal [facility] ([place]) Comment on above: Performed By: #### U A, PREGU #### Sean [address] [place], [place] [address] US ABDOMEN LIMITEDon 023 US ABDOMEN LIMITED [...] 03/30/2023 12:55:18 PM Ordering Provider: SNOW Luis [facility] ([place]) .Auto Diffon 03-29-2023 Basophil, Absolute 0.0 10 3/mcL Normal 0.0-0.2 [facility] ([place]) Comment on above: Performed By: #### A DIFF, ANEU, CMP, MG, GFR, LD, CRP, CBC, ESR #### [address] [address] Basophils/100 WBC (Bld) 0.7 % Normal 0.0-2.5 [facility] ([place] Comment on above: Performed By: #### A DIFF, ANEU, CMP, MG, GFR, LD, CRP, CBC, ESR #### [address] [address] Eosinophil, Absolute 0.3 10 3/mcL Normal 0.0-0.4 [facility] ([place]) Comment on above: Performed By: #### A DIFF, ANEU, CMP, MG, GFR, LD, CRP, CBC, ESR #### [address] [address] Eosinophils/100 WBC (Bld) 4.0 % Normal 0.0-7.0 [facility] ([place] Comment on above: Performed By: #### A DIFF, ANEU, CMP, MG, GFR, LD, CRP, CBC, ESR #### [address] [address] Lymphocyte, Absolute 2.2 10 3/mcL Normal 0.8-3.9 [facility] ([place]) Comment on above: Performed By: #### A DIFF, ANEU, CMP, MG, GFR, LD, CRP, CBC, ESR #### [address] [address] Lymphocytes/100 WBC (Bld) 32.5 % Normal 10.0-50.0 [facility] ([place] Comment on above: Performed By: #### A DIFF, ANEU, CMP, MG, GFR, LD, CRP, CBC, ESR #### [address] [address] Monocyte, Absolute 0.5 10 3/mcL Normal 0.2-1.0 [facility] ([place]) Comment on above: Performed By: #### A DIFF, ANEU, CMP, MG, GFR, LD, CRP, CBC, ESR #### [address] [address] Monocytes/100 WBC (Bld) 7.0 % Normal 1.7-13.0 [facility] ([place] Comment on above: Performed By: #### A DIFF, ANEU, CMP, MG, GFR, LD, CRP, CBC, ESR #### [address] [address] Neutrophils/100 WBC (Bld) 55.8 % Normal 37.0-80.0 [facility] ([place] Comment on above: Performed By: #### A DIFF, ANEU, CMP, MG, GFR, LD, CRP, CBC, ESR #### [address] [address] .GFRon 03-29-2023 GFR 94 ml/min/1.73sqm Normal [facility] ([place] Comment on above: Result Comment: GFR Population [...] Performed By: #### U A, PREGU #### [facility] [address] [place], [place] [address] GFR Non- 78 ml/min/1.73sqm Normal [facility] ([place]) Comment on above: Result Comment: GFR Population [...] Performed By: #### U A, PREGU #### [facility] [address] [place], [place] [address] .NEUABSon 03-29-2023 Neutrophil, Absolute 3.8 10 3/mcL Normal 2.9-6.2 [facility] ([place]) Comment on above: Performed By: #### A DIFF, ANEU, CMP, MG, GFR, LD, CRP, CBC, ESR #### [address] [address] CBCon 03-29-2023 Erythrocyte distribution width (RBC) [Ratio] 13.8 % Normal 11.5-14.5 [facility] ([place] Comment on above: Performed By: #### A DIFF, ANEU, CMP, MG, GFR, LD, CRP, CBC, ESR #### [address] [address] Hematocrit (Bld) [Volume fraction] 36.4 % Low 37.0-47.0 [facility] ([place] Comment on above: Performed By: #### A DIFF, ANEU, CMP, MG, GFR, LD, CRP, CBC, ESR #### [address] [address] Hgb 12.1 G/dL Normal 12.0-16.0 [facility] ([place] Comment on above: Performed By: #### A DIFF, ANEU, CMP, MG, GFR, LD, CRP, CBC, ESR #### [address] [address] MCH (RBC) [Entitic mass] 31.5 pg High 27.0-31.2 [facility] ([place] Comment on above: Performed By: #### A DIFF, ANEU, CMP, MG, GFR, LD, CRP, CBC, ESR #### [address] [address] MCHC 33.2 G/dL Normal 33.0-37.0 [facility] ([place] Comment on above: Performed By: #### A DIFF, ANEU, CMP, MG, GFR, LD, CRP, CBC, ESR #### [address] [address] MCV (RBC) [Entitic vol] 94.8 fL High 80.0-94.0 [facility] ([place] Comment on above: Performed By: #### A DIFF, ANEU, CMP, MG, GFR, LD, CRP, CBC, ESR #### [address] [address] Platelet 299 10 3/mcL Normal 130-400 [facility] ([place]) Comment on above: Performed By: #### A DIFF, ANEU, CMP, MG, GFR, LD, CRP, CBC, ESR #### [address] [address] Platelet mean volume (Bld) [Entitic vol] 6.7 fL Low 7.4-10.4 [facility] ([place]) Comment on above: Performed By: #### A DIFF, ANEU, CMP, MG, GFR, LD, CRP, CBC, ESR #### [address] [address] RBC 3.83 10 6/mcL Low 4.20-5.40 [facility] ([place]) Comment on above: Performed By: #### A DIFF, ANEU, CMP, MG, GFR, LD, CRP, CBC, ESR #### [address] [address] WBC 6.8 10 3/mcL Normal 4.6-10.8 [facility] ([place]) Comment on above: Performed By: #### A DIFF, ANEU, CMP, MG, GFR, LD, CRP, CBC, ESR #### [place] [id number] [place], [place] [address] CMPon 03-29-2023 Albumin Level 3.5 G/dL Normal 3.5-5.0 [facility] ([place]) Comment on above: Performed By: #### U A, PREGU #### [facility] [address] [place], [place] [address] Albumin/Globulin [Mass ratio] 1.3 {ratio} Normal 1.1-2.5 [facility] ([place] Comment on above: Performed By: #### U A, PREGU #### [facility] [address] [place], [place] [address] ALP [Catalytic activity/Vol] 89 U/L Normal 40-135 [facility] ([place] Comment on above: Performed By: #### U A, PREGU #### [facility] [address] [place], [place] [address] ALT [Catalytic activity/Vol] 158 U/L High 14-59 [facility] ([place] Comment on above: Performed By: #### U A, PREGU #### [facility] [address] [place], [place] [address] AST [Catalytic activity/Vol] 107 U/L High 10-40 [facility] ([place] Comment on above: Performed By: #### U A, PREGU #### [facility] [address] [place], [place] [address] Bili Total 0.4 mg/dL Normal 0.2-1.0 [facility] ([place]) Comment on above: Result Comment: Use of this assay is not recommended for patients undergoing treatment with eltrombopag due to the potential for falsely elevated results. Performed By: #### U A, PREGU #### [facility] [address] [place], [place] [address] BUN/Creatinine Ratio 19 ratio Normal 7-27 [facility]) Comment on above: Performed By: #### U A, PREGU #### Seanoz [address] [place], [place] [address] Calcium [Mass/Vol] 9.2 mg/dL Normal 8.4-10.2 [facility] ([place]) Comment on above: Performed By: #### U A, PREGU #### Seanoz [address] [place], [place] [address] Chloride [Moles/Vol] 102 mmol/L Normal 98-107 [facility] ([place]) Comment on above: Performed By: #### U A, PREGU #### Seanoz [address] [place], [place] [address] CO2 [Moles/Vol] 29 mmol/L Normal 22-29 [facility] ([place] Comment on above: Performed By: #### U A, PREGU #### Seanoz [address] [place], [place] [address] Creatinine [Mass/Vol] 0.79 mg/dL Normal 0.55-1.02 [facility] ([place]) Comment on above: Performed By: #### U A, PREGU #### Seanoz [address] [place], [place] [address] Electrolyte Balance 11.0 mEq/L Normal 4.0-15.0 [facility] [place] Comment on above: Performed By: #### U A, PREGU #### Seanoz [address] [place], [place] [address] Globulin 2.7 G/dL Normal [facility] ([place] Comment on above: Performed By: #### U A, PREGU #### Seanoz [address] [place], [place] [address] Glucose [Mass/Vol] 106 mg/dL High 70-105 [facility] ([place] Comment on above: Performed By: #### U A, PREGU #### Seanoz [address] [place], [place] [address] Potassium [Moles/Vol] 3.8 mmol/L Normal 3.5-5.1 [facility] ([place]) Comment on above: Performed By: #### U A, PREGU #### [facility] [address] [place], [place] [address] Sodium [Moles/Vol] 142 mmol/L Normal 136-145 [facility] ([place] Comment on above: Performed By: #### U A, PREGU #### [facility] [address] [place], [place] [address] Total Protein 6.2 G/dL Low 6.4-8.2 [facility] ([place]) Comment on above: Performed By: #### U A, PREGU #### [facility] [address] [place], [place] [address] Urea nitrogen [Mass/Vol] 15 mg/dL Normal 7-18 [facility] ([place] Comment on above: Performed By: #### U A, PREGU #### [facility] [address] [place], [place] [address] CRPon 03-29-2023 CRP [Mass/Vol] mg/L Normal 0.0-0.9 [facility] ([place]) Comment on above: Performed By: #### A DIFF, ANEU, CMP, MG, GFR, LD, CRP, CBC, ESR #### [address] [address] ESRon 03-29-2023 Erythrocyte Sed Rate 7 mm/hr Normal 0-20 [facility] ([place]) Comment on above: Performed By: #### U A, PREGU #### [facility] [address] [place], [place] [address] LDHon 03-29-2023 LDH 218 U/L Normal 81-234 [facility] ([place]) Comment on above: Performed By: #### A DIFF, ANEU, CMP, MG, GFR, LD, CRP, CBC, ESR #### [address] [address] MGon 03-29-2023 Magnesium [Mass/Vol] 1.8 mg/dL Normal 1.8-2.4 [facility] ([place]) Comment on above: Performed By: #### A DIFF, ANEU, CMP, MG, GFR, LD, CRP, CBC, ESR #### [address] [address] .Auto Diffon 03-28-2023 Basophil, Absolute 0.1 10 3/mcL Normal 0.0-0.2 [facility] ([place] Comment on above: Performed By: #### A DIFF, ANEU, CMP, MG, GFR, LD, CRP, CBC, ESR #### [address] [address] Basophils/100 WBC (Bld) 1.1 % Normal 0.0-2.5 [facility] ([place] Comment on above: Performed By: #### A DIFF, ANEU, CMP, MG, GFR, LD, CRP, CBC, ESR #### [address] [address] Eosinophil, Absolute 0.2 10 3/mcL Normal 0.0-0.4 [facility] ([place] Comment on above: Performed By: #### A DIFF, ANEU, CMP, MG, GFR, LD, CRP, CBC, ESR #### [address] [address] Eosinophils/100 WBC (Bld) 2.8 % Normal 0.0-7.0 [facility] ([place] Comment on above: Performed By: #### A DIFF, ANEU, CMP, MG, GFR, LD, CRP, CBC, ESR #### [address] [address] Lymphocyte, Absolute 1.9 10 3/mcL Normal 0.8-3.9 [facility] ([place]) Comment on above: Performed By: #### A DIFF, ANEU, CMP, MG, GFR, LD, CRP, CBC, ESR #### [address] [address] Lymphocytes/100 WBC (Bld) 24.7 % Normal 10.0-50.0 [facility] ([place] Comment on above: Performed By: #### A DIFF, ANEU, CMP, MG, GFR, LD, CRP, CBC, ESR #### [address] [address] Monocyte, Absolute 0.5 10 3/mcL Normal 0.2-1.0 [facility] ([place]) Comment on above: Performed By: #### A DIFF, ANEU, CMP, MG, GFR, LD, CRP, CBC, ESR #### [address] [address] Monocytes/100 WBC (Bld) 6.3 % Normal 1.7-13.0 [facility] ([place] Comment on above: Performed By: #### A DIFF, ANEU, CMP, MG, GFR, LD, CRP, CBC, ESR #### [address] [address] Neutrophils/100 WBC (Bld) 65.1 % Normal 37.0-80.0 [facility] ([place] Comment on above: Performed By: #### A DIFF, ANEU, CMP, MG, GFR, LD, CRP, CBC, ESR #### [address] [address] .GFRon 03-28-2023 GFR Non- 79 ml/min/1.73sqm Normal [facility] ([place] Comment on above: Result Comment: GFR Population [...] MG, GFR, LD, CRP, CBC, ESR #### [address] [address] GFR 96 ml/min/1.73sqm Normal [facility] ([place] Comment on above: Result Comment: GFR Population [...] MG, GFR, LD, CRP, CBC, ESR #### [address] [address] .MDWon 03-28-2023 Monocyte Distribution Width 21.06 High 0.00-20.00 [facility] ([place]) Comment on above: Result Comment: For adults in ED, MDW>20.0 may be associated with a higher risk of sepsis during the first 12hrs of hospital admission Performed By: #### A DIFF, ANEU, CMP, MG, GFR, LD, CRP, CBC, ESR #### [address] [address] .NEUABSon 03-28-2023 Neutrophil, Absolute 4.9 10 3/mcL Normal 2.9-6.2 [facility] ([place]) Comment on above: Performed By: #### A DIFF, ANEU, CMP, MG, GFR, LD, CRP, CBC, ESR #### [address] [address] CBCon 03-28-2023 Erythrocyte distribution width (RBC) [Ratio] 13.8 % Normal 11.5-14.5 [facility] ([place] Comment on above: Performed By: #### A DIFF, ANEU, CMP, MG, GFR, LD, CRP, CBC, ESR #### [address] [address] Hematocrit (Bld) [Volume fraction] 40.6 % Normal 37.0-47.0 [facility] ([place] Comment on above: Performed By: #### A DIFF, ANEU, CMP, MG, GFR, LD, CRP, CBC, ESR #### [address] [address] Hgb 13.5 G/dL Normal 12.0-16.0 [facility] ([place] Comment on above: Performed By: #### A DIFF, ANEU, CMP, MG, GFR, LD, CRP, CBC, ESR #### [address] [address] MCH (RBC) [Entitic mass] 30.8 pg Normal 27.0-31.2 [facility] ([place] Comment on above: Performed By: #### A DIFF, ANEU, CMP, MG, GFR, LD, CRP, CBC, ESR #### [place] [address] MCHC 33.1 G/dL Normal 33.0-37.0 [facility] ([place]) Comment on above: Performed By: #### A DIFF, ANEU, CMP, MG, GFR, LD, CRP, CBC, ESR #### [address] [address] MCV (RBC) [Entitic vol] 93.0 fL Normal 80.0-94.0 [facility] ([place] Comment on above: Performed By: #### A DIFF, ANEU, CMP, MG, GFR, LD, CRP, CBC, ESR #### [address] [address] Platelet 357 10 3/mcL Normal 130-400 [facility] ([place]) Comment on above: Performed By: #### A DIFF, ANEU, CMP, MG, GFR, LD, CRP, CBC, ESR #### [address] [address] Platelet mean volume (Bld) [Entitic vol] 6.6 fL Low 7.4-10.4 [facility] ([place]) Comment on above: Performed By: #### A DIFF, ANEU, CMP, MG, GFR, LD, CRP, CBC, ESR #### [address] [address] RBC 4.37 10 6/mcL Normal 4.20-5.40 [facility] ([place]) Comment on above: Performed By: #### A DIFF, ANEU, CMP, MG, GFR, LD, CRP, CBC, ESR #### [address] [address] WBC 7.6 10 3/mcL Normal 4.6-10.8 [facility] ([place]) Comment on above: Performed By: #### A DIFF, ANEU, CMP, MG, GFR, LD, CRP, CBC, ESR #### [address] [address] CMPon 03-28-2023 Albumin Level 3.8 G/dL Normal 3.5-5.0 [facility] ([place]) Comment on above: Performed By: #### A DIFF, ANEU, CMP, MG, GFR, LD, CRP, CBC, ESR #### [address] [address] Albumin/Globulin [Mass ratio] 1.2 {ratio} Normal 1.1-2.5 [facility] ([place] Comment on above: Performed By: #### A DIFF, ANEU, CMP, MG, GFR, LD, CRP, CBC, ESR #### [address] [address] ALP [Catalytic activity/Vol] 94 U/L Normal 40-135 [facility] ([place]) Comment on above: Performed By: #### A DIFF, ANEU, CMP, MG, GFR, LD, CRP, CBC, ESR #### [address] [address] ALT [Catalytic activity/Vol] 157 U/L High 14-59 [facility] ([place] Comment on above: Performed By: #### A DIFF, ANEU, CMP, MG, GFR, LD, CRP, CBC, ESR #### [address] [address] AST [Catalytic activity/Vol] 70 U/L High 10-40 [facility] ([place]) Comment on above: Performed By: #### A DIFF, ANEU, CMP, MG, GFR, LD, CRP, CBC, ESR #### [address] [address] Bili Total 0.2 mg/dL Normal 0.2-1.0 [facility] ([place]) Comment on above: Result Comment: Use of this assay is not recommended for patients undergoing treatment with eltrombopag due to the potential for falsely elevated results. Performed By: #### A DIFF, ANEU, CMP, MG, GFR, LD, CRP, CBC, ESR #### [address] [address] BUN/Creatinine Ratio 24 ratio Normal 7-27 [facility] ([place]) Comment on above: Performed By: #### A DIFF, ANEU, CMP, MG, GFR, LD, CRP, CBC, ESR #### [address] [address] Calcium [Mass/Vol] 9.6 mg/dL Normal 8.4-10.2 [facility] ([place]) Comment on above: Performed By: #### A DIFF, ANEU, CMP, MG, GFR, LD, CRP, CBC, ESR #### [address] [address] Chloride [Moles/Vol] 98 mmol/L Normal 98-107 [facility] ([place]) Comment on above: Performed By: #### A DIFF, ANEU, CMP, MG, GFR, LD, CRP, CBC, ESR #### [address] [address] CO2 [Moles/Vol] 30 mmol/L High 22-29 [facility] ([place]) Comment on above: Performed By: #### A DIFF, ANEU, CMP, MG, GFR, LD, CRP, CBC, ESR #### [address] [address] Creatinine [Mass/Vol] 0.78 mg/dL Normal 0.55-1.02 [facility] ([place]) Comment on above: Performed By: #### A DIFF, ANEU, CMP, MG, GFR, LD, CRP, CBC, ESR #### [address] [address] Electrolyte Balance 12.0 mEq/L Normal 4.0-15.0 [facility] [place] Comment on above: Performed By: #### A DIFF, ANEU, CMP, MG, GFR, LD, CRP, CBC, ESR #### [address] [address] Globulin 3.1 G/dL Normal [facility] ([place]) Comment on above: Performed By: #### A DIFF, ANEU, CMP, MG, GFR, LD, CRP, CBC, ESR #### [address] [address] Glucose [Mass/Vol] 159 mg/dL High 70-105 [facility] ([place]) Comment on above: Performed By: #### A DIFF, ANEU, CMP, MG, GFR, LD, CRP, CBC, ESR #### [address] [address] Potassium [Moles/Vol] 3.5 mmol/L Normal 3.5-5.1 [facility] ([place]) Comment on above: Performed By: #### A DIFF, ANEU, CMP, MG, GFR, LD, CRP, CBC, ESR #### [address] [address] Sodium [Moles/Vol] 140 mmol/L Normal 136-145 [facility] ([place]) Comment on above: Performed By: #### A DIFF, ANEU, CMP, MG, GFR, LD, CRP, CBC, ESR #### [address] [address] Total Protein 6.9 G/dL Normal 6.4-8.2 [facility] ([place]) Comment on above: Performed By: #### A DIFF, ANEU, CMP, MG, GFR, LD, CRP, CBC, ESR #### [address] [address] Urea nitrogen [Mass/Vol] 19 mg/dL High 7-18 [facility] ([place]) Comment on above: Performed By: #### A DIFF, ANEU, CMP, MG, GFR, LD, CRP, CBC, ESR #### [address] [place] [address] [place], [place] [address] CT ABD/PELVIS W/ IV CONTRAST ONLYon 03-28-2023 [...] 9:48:56 PM Ordering Provider: LETHA SHAIKH Normal [facility] ([place]) LIPon 03-28-2023 Lipase Level 165 U/L High 16-77 [facility] ([place]) Comment on above: Performed By: #### A DIFF, ANEU, CMP, MG, GFR, LD, CRP, CBC, ESR #### [address] [place] [id number] [place], [place] [address] UAon 03-28-2023 Color (U) Yellow Normal [facility] ([place] Comment on above: Performed By: #### U A, PREGU #### [address] [place], [place] [address] Glucose (U) [Mass/Vol] Negative Normal Negative [facility] ([place] Comment on above: Performed By: #### U A, PREGU #### [address] [place], [place] [address] Ketones Ql (U) Negative Normal Negative [facility] ([place]) Comment on above: Performed By: #### U A, PREGU #### [address] [place], [place] [address] UA Appear Clear Normal Clear [facility] ([place] Comment on above: Performed By: #### U A, PREGU #### [address] [place], [place] [address] UA Blood Negative Normal Negative [facility] [facility] ([place]) Comment on above: Performed By: #### U A, PREGU #### Sean Venus [address] [place], [place] [address] UA Leuk Est Negative Normal Negative [facility] ([place]) Comment on above: Performed By: #### U A, PREGU #### Sean Venus [address] [place], [place] [address] UA Nitrite Negative Normal Negative [facility] ([place]) Comment on above: Performed By: #### U A, PREGU #### Sean Loaizan [address] [place], [place] [address] UA pH 6.0 Normal 5.0 - 8.0 [facility] ([place]) Comment on above: Performed By: #### U A, PREGU #### Sean Loaizan [address] [place], [place] [address] UA Protein Negative Normal Negative [facility] ([place]) Comment on above: Performed By: #### U A, PREGU #### Sean Loaizan [address] [place], [place] [address] UA Spec Grav 1.025 Normal 1.015-1.025 [facility] ([place]) Comment on above: Performed By: #### U A, PREGU #### Sean Loaizan [address] [place], [place] [address] UA Specimen Type Not Given Normal [facility] ([place]) Comment on above: Performed By: #### U A, PREGU #### Sean Loaizan [address] [place], [place] [address] UA Urobilinogen 0.2 E.U./dL Normal 0.2-1.0 [facility] ([place]) Comment on above: Performed By: #### U A, PREGU #### Sean Reynolds [address] [place], [place] [address] Urobilinogen (U) [Mass/Vol] Negative Normal Negative [facility] ([place]) Comment on above: Performed By: #### U A, PREGU #### Sean Reynolds [address] [place], [place] [address] LABORATORYOrdered By: SYSTEM SYSTEM on 03-11-2023 Albumin [...] on above: Result Comment: Perf ormed By: [facility] [address] [place] [address] Lamp Cleaner: Jameson Saldivar III, M.D. CLIA#: [id number] IGG Subclass 2 238.2 mg/dL Invalid Interpretation Code 241.8-700.3m g/dL AO Sendouts SS Comment on above: Result Comment: Perf ormed By: [facility] [address] [place] [address] Lamp Cleaner: Jameson Saldivar III, M.D. CLIA#: [id number] IGG Subclass 3 32.2 mg/dL Invalid Interpretation Code 21.8-176.1mg /dL AO Sendouts SS Comment on above: Result Comment: Perf ormed By: [facility] [address] [place] [address] Lamp Cleaner: Jameson Saldivar III, M.D. CLIA#: [id number] IGG Subclass 4 110.3 mg/dL Invalid Interpretation Code 3.9-86.4mg/d L AO Sendouts SS Comment on above: Result Comment: Perf ormed By: [facility] [address] [place] [address] Lamp Cleaner: Miguel Blanco III#: [id number] LABORATORYOrdered By: SYSTEM SYSTEM on 03-09-2023 Albumin [...] Glucose Testing Reason Routine (03/08/23 8:34 AM) [facility] Glucose [Mass/Vol] 94 mg/dL Invalid Interpretation Code 70 - 110 mg/dL [facility] LABORATORYOrdered By: Elaine Skinner on 03-08-2023 Calcium.ionized [...] Probable Contamination. Suggest recollection if clinically indicated. [facility] LABORATORYOrdered By: Cynthia Garcia on 01-25-2023 Acetaminophen [...] 20 AH Man Viro/Sero SS LABORATORYOrdered By: [employer] SYSTEM on 06-18-2022 Magnesium [Mass/Vol] 1.7 mg/dL Invalid Interpretation Code 1.6 - 2.4 mg/dL AH ADM SS LABORATORYOrdered By: Pam Mckeon on 06-17-2022 Appearance (U) Clear (06/17/22 2:27 PM) [facility] Beta HCG ( test) Ql (U) Negative (06/17/22 2:27 PM) [facility] Bilirubin Urine Dipstick Negative (06/17/22 2:27 PM) [facility] Blood Urine Dipstick Negative (06/17/22 2:27 PM) [facility] Glucose Urine Dipstick Negative (06/17/22 2:27 PM) [facility] Ketones Urine Dipstick Negative (06/17/22 2:27 PM) [facility] Leukocytes Urine Dipstick Negative (06/17/22 2:27 PM) [facility] Nitrite Urine Dipstick Negative (06/17/22 2:27 PM) [facility] pH Urine Dipstick 6.5 (06/17/22 2:27 PM) [facility] Protein Urine Dipstick Negative (06/17/22 2:27 PM) [facility] Specific [place] Urine Dipstick 1.010 (06/17/22 2:27 PM) [facility] Urine Color Urine Dipstick Yellow (06/17/22 2:27 PM) [facility] Urobilinogen Urine Dipstick 0.2 mg/dl (06/17/22 2:27 PM) [facility] LABORATORYOrdered By: Martha Butt on 06-17-2022 [...] Occult Bld Stl Positive (06/17/22 10:56 AM) [facility] LABORATORYOrdered By: Carie Borjas on 06-17-2022 [...] 27 ratio AO ADM SS LABORATORYOrdered By: [employer] SYSTEM on 07-02-2021 GFR 66 ml/min/1.73sqm Invalid [...] 27 ratio AO ADM SS LABORATORYOrdered By: [employer] on 06-30-2021 GFR 78 ml/min/1.73sqm Invalid Interpretation Code AO Chemistry S GFR Non- 64 ml/min/1.73sqm Invalid Interpretation Code AO Chemistry S LABORATORYOrdered By: Gil Hardy on 06-30-2021 Natriuretic peptide.B prohormone N-Terminal [Mass/Vol] 477 pg/mL Invalid Interpretation Code 0 - 125 pg/mL AO ADM SS CNPNon 03-02-2021 CNPN Telephone (NEEPBA) DOROTHEA RUTLEDGE ([id number]) 1975 F Date Time Provider Department 03/02/21 JOSELYN CORDERO During your visit today, we recorded the following information about you: Vito Bonilla Lostant Ppg 03/02/2021 10:04 AM Signed Pt sent a my chart asking to schedule a virtual appt with Dr. Aldrich. I let her know the next available here in [place] is in late Apr. Or she could [...] 30-34.9 [E66.9] 11/27/2019 Encounter Status:Closed by SALVATORE MANAGER ARCHITECTURAL VITO BOWEN on 03/02/21 [facility] EMERGENCY REPORTon 0 EMERGENCY REPORT [facility] EMERGENCY ROOM REPORT NAME ACCOUNT SEX AGE ADMIT DISCHARGE PT MED. RECORD# NUMBER DATE DATE TYPE DOROTHEA RUTLEDGE [id number] F 43 12/03/19 12/03/19 2 M [id number] ROOM: ER DATE OF : 1975 DICTATING [...] Parul Cardona DO 12/03/19 21:58 JOB #: [id number] Transcribed By: vivian 12/04/19 13:51 Electronically signed by: E-SIGN: Parul Cardona D.O. 12/17/19 19:20 Page 2 of 2 DOROTHEA RUTLEDGE Emergency Room Report Normal [facility] PROTHROMBIN TIME AND INRon 0 12-03-2019 INR Coag (Bld) [Relative time] Normal [facility] Comment on above: Result Comment: PROT HROMBIN TIME AND INR Performed By: #### 2 [id number] #### [facility],[address] [place] [address] INR Coag (PPP) [Relative time] 2.5 {INR} High 0.8 - 1.2 [facility] Comment on above: Result Comment: [...] [employer]ES Performed By: #### 2 [id number] #### [facility],[address] [place], [place] [id number] PT-COUMADIN 27.5 sec High 9.3 - 14.1 [facility] Comment on above: Performed By: #### 2 [id number] #### [facility],[address] [place], [place] [address] Levetiracetamon 11-28-2019 Levetiracetam [Mass/Vol] 33.1 ug/mL Normal 12.0-46.0 [facility] Comment on above: Result Comment: This [...] developed and its performance characteristics determined by [facility] Pathology and Laboratory Medicine [place] ([facility]). It has not been cleared or approved by the FDA. [facility] is regulated under CLIA as qualified to perform high complexity testing. This test is used for clinical purposes. It should not be regarded as investigational or for research. Performing Laboratory: [facility] [address] [place] [address] Performed By: #### K EPPX #### [facility] [address] [place] [address] Topiramateon 11-28-2019 Topiramate 14.0 ug/mL Normal 5.0-20.0 [facility] Comment on above: Result Comment: Refe rence ranges and high/low indicator flags are provided as general guidelines only. The treating physician must determine appropriate target levels/dosing based on the specific clinical situation. This test was developed and its performance characteristics determined by [facility] [place] ([facility]). It has not been cleared or approved by the FDA. [facility] is regulated under CLIA as qualified to perform high complexity testing. This test is used for clinical purposes. It should not be regarded as investigational or for research. Performing Laboratory: [facility] [address] [place] [address] Performed By: #### T OPIX #### [address] [address] Activated PTTon 11-27-2019 aPTT Coag (Bld) [Time] 30.4 s Normal 23.0-32.4 [facility] Comment on above: Result Comment: Unfr [...] laboratory APTT reagent in use throughout the [facility]. Performed By: #### A PTT #### [address] [address] Protimeon 11-27-2019 INR Coag (PPP) [Relative time] 1.97 {INR} High 0.90-1.30 [facility] Comment on above: Result Comment: Lory min K Antagonist (VKA) Therapeutic Range: INR 2 to 3 (Target INR of 2.5) Note: For patients treated with VKA drugs, such as warfarin, the [employer] [employer] 2012 Guideline recommends [...] Chest 2012; 141:7S-47S Arnel RA et al. [facility] 2017; 70: 252-289 Performed By: #### P T #### [address] [address] PT Coag (PPP) [Time] 21.0 s High 9.7-13.0 [facility] Comment on above: Performed By: #### P T #### [address] [address] Comprehensive Panelon 2019 ALP [Catalytic activity/Vol] 91 U/L Normal 45-117 [facility] Comment on above: Performed By: #### P 14 #### [address] [address] Bilirubin [Mass/Vol] 0.2 mg/dL Normal 0.2-1.0 [facility] Comment on above: Result Comment: Use of this assay is not recommended for patients undergoing treatment with eltrombopag due to the potential for falsely elevated results. Performed By: #### P 14 #### [address] [address] Protein [Mass/Vol] 6.4 g/dL Normal 6.4-8.2 [facility] Comment on above: Performed By: #### P 14 #### [address] [address] Creatinine [Mass/Vol] 0.79 mg/dL Normal 0.51-0.95 [facility] Comment on above: Result Comment: Use of this assay is not recommended for patients undergoing treatment with phenindione, due to the potential for falsely depressed results. Performed By: #### P 14 #### [address] [address] ALT [Catalytic activity/Vol] 34 U/L Normal 12-78 [facility] Comment on above: Performed By: #### P 14 #### [address], [place] [address] AST [Catalytic activity/Vol] 27 U/L Normal 15-37 [facility] Comment on above: Performed By: #### P 14 #### [facility] [address] [place], [place] [address] Albumin [Mass/Vol] 3.0 g/dL Low 3.4-5.0 [facility] Comment on above: Performed By: #### P 14 #### [facility] [address] [place], [place] [address] Anion gap [Moles/Vol] 11 mmol/L Normal 8-16 [facility] Comment on above: Performed By: #### P 14 #### [facility] [address] [place], [place] [address] CO2 [Moles/Vol] 19 mmol/L Low 21-32 [facility] Comment on above: Performed By: #### P 14 #### [facility] [address] [place], [place] [address] Glucose [Mass/Vol] 100 mg/dL High 70-99 [facility] Comment on above: Performed By: #### P 14 #### [facility] [address] [place], [place] [address] Urea nitrogen [Mass/Vol] 20 mg/dL High 7-18 [facility] Comment on above: Performed By: #### P 14 #### [facility] [address] [place], [place] [address] Calcium [Mass/Vol] 7.7 mg/dL Low 8.5-10.1 [facility] Comment on above: Performed By: #### P 14 #### [facility] [address] [place], [place] [address] Chloride [Moles/Vol] 113 mmol/L High 98-107 [facility] Comment on above: Performed By: #### P 14 #### [facility] [address] [place], [place] [address] Potassium [Moles/Vol] 3.7 mmol/L Normal 3.5-5.1 [facility] Comment on above: Performed By: #### P 14 #### [facility] [address] [place] [address] Sodium [Moles/Vol] 139 mmol/L Normal 136-145 [facility] Comment on above: Performed By: #### P 14 #### [facility] [address] [place] [address] Hemogram/Diffon 11-26-2019 Abs Immature Grans 0.01 thou/cmm Normal 0.00-0.05 [facility] Comment on above: Performed By: #### C BCD1 #### [facility] [address] [place] [address] Abs Neut (ANC) 2.15 thou/cmm Normal 1.56-6.13 [facility] Comment on above: Performed By: #### C BCD1 #### [facility] [address] [place] [address] Abs. Baso 0.03 thou/cmm Normal 0.01-0.08 [facility] Comment on above: Performed By: #### C BCD1 #### [place] [address] Abs. [place] 0.37 thou/cmm Normal 0.27-0.70 [facility] Comment on above: Performed By: #### C BCD1 #### [place] [address] Basophils/100 WBC (Bld) 0.7 % Normal [facility] Comment on above: Performed By: #### C BCD1 #### [place] [address] Eosinophils (Bld) [#/Vol] 0.08 thou/cmm Normal 0.00-0.31 [facility] Comment on above: Performed By: #### C BCD1 #### [facility] [address] [place] [address] Eosinophils/100 WBC (Bld) 1.7 % Normal [facility] Comment on above: Performed By: #### C BCD1 #### [place] [address] Erythrocyte distribution width (RBC) [Ratio] 11.8 % Normal 11.7-14.4 [facility] Comment on above: Performed By: #### C BCD1 #### [facility] [address] [place] [address] Hematocrit (Bld) [Volume fraction] 38.2 % Normal 34.1-44.9 [facility] Comment on above: Performed By: #### C BCD1 #### [facility] [address] [place] [address] Hemoglobin (Bld) [Mass/Vol] 12.8 g/dL Normal 11.2-15.7 [facility] Comment on above: Performed By: #### C BCD1 #### [facility] [address] [place] [address] Immature Grans 0.20 % Normal [facility] Comment on above: Performed By: #### C BCD1 #### [facility] [address] [place] [address] Lymphocytes (Bld) [#/Vol] 1.96 thou/cmm Normal 1.18-3.74 [facility] Comment on above: Performed By: #### C BCD1 #### [facility] [address] [place] [address] Lymphocytes/100 WBC (Bld) 42.6 % Normal [facility] Comment on above: Performed By: #### C BCD1 #### [facility] [address] [place] [address] MCH (RBC) [Entitic mass] 33.2 pg High 25.6-32.2 [facility] Comment on above: Performed By: #### C BCD1 #### [facility] [address] [place] [address] MCHC (RBC) [Mass/Vol] 33.5 % Normal 31.6-34.8 [facility] Comment on above: Performed By: #### C BCD1 #### [facility] [address] [place] [address] MCV (RBC) [Entitic vol] 99.0 fL High 79.4-94.8 [facility] Comment on above: Performed By: #### C BCD1 #### [facility] [address] [place], [place] [address] Monocytes/100 WBC (Bld) 8.0 % Normal [facility] Comment on above: Performed By: #### C BCD1 #### [facility] [address] [place], [place] [address] Platelet mean volume (Bld) [Entitic vol] 8.7 fL Low 9.4-12.3 [facility] Comment on above: Performed By: #### C BCD1 #### [facility] [address] [place] [address] Platelets (Bld) [#/Vol] 150 thou/cmm Low 182-369 [facility] Comment on above: Performed By: #### C BCD1 #### [facility] [address] [place] [address] RBC (Bld) [#/Vol] 3.86 mil/cmm Low 3.93-5.22 [facility] Comment on above: Performed By: #### C BCD1 #### [facility] [address] [place] [address] RDW SD 42.7 fl Normal 36.4-46.3 [facility] Comment on above: Performed By: #### C BCD1 #### [facility] [address] [place] [address] Seg Neutrophil 46.8 % Normal [facility] Comment on above: Performed By: #### C BCD1 #### [facility] [address] [place] [address] WBC (Bld) [#/Vol] 4.60 thou/cmm Normal 3.98-10.04 [facility] Comment on above: Performed By: #### C BCD1 #### [facility] [address] [place] [address] MDRD GFRon 11-26-2019 GFR/1.73 sq M predicted among non-blacks MDRD (S/P/Bld) [Vol rate/Area] mL/min/{1.73_m2} Normal >60mL/min/1. 73m2 [facility] Comment on above: Result Comment: If t he patient is , multiply the result by 1.210. Performed By: #### G FR #### [facility] [address] [place] [address] Urine Drug Screenon 11-26-19 20 Urine Amphetamine Non-detected Normal Non-Detected [facility] Comment on above: Performed By: #### U DRG2 #### [facility] [address] [place] [address] Urine Barbiturates Non-detected Normal Non-Detected [facility] Comment on above: Performed By: #### U DRG2 #### [facility] [address] [place] [address] Urine Benzodiazepine Non-detected Normal Non-Detected [facility] Comment on above: Performed By: #### U DRG2 #### [facility] [address] [place] [address] Urine Opiate Non-detected Normal Non-Detected [facility] Comment on above: Performed By: #### U DRG2 #### [place] [address] Urine PCP Non-detected Normal Non-Detected [facility] Comment on above: Performed By: #### U DRG2 #### [place] [address] Urine THC Non-detected Normal Non-Detected [facility] Comment on above: Result Comment: Urin e [...] only. Performed By: #### U DRG2 #### [facility] [address] [place] [address] Urine Cocaine Metab Non-detected Normal Non-Detected [facility] Comment on above: Performed By: #### U DRG2 #### [facility] [address] [place], [place] [address] Urine HCG, Qual.on 0 Beta HCG ( test) Ql (U) Negative Normal Negative [facility] Comment on above: Performed By: #### H CGUR #### [facility] [address] [place], [place] [address] Specific [place], Ur 1.007 Normal 1.005-1.030 [facility] Comment on above: Performed By: #### H CGUR #### [facility] [address] [place], [place] [address] CBC WITHOUT DIFFon Erythrocyte distribution width (RBC) [Ratio] 11.1 % Low 11.7-15.0 [facility] Comment on above: Performed By: #### L IPS #### [facility] [address] [address] Hematocrit (Bld) [Volume fraction] 40.6 % Normal 36-44 [facility] Comment on above: Performed By: #### L IPS #### [facility] [address] [address] Hemoglobin (Bld) [Mass/Vol] 13.9 g/dL Normal 12.0-15.0 [facility] Comment on above: Performed By: #### L IPS #### [facility] [address] [address] MCH (RBC) [Entitic mass] 32.9 pg Normal 26-34 [facility] Comment on above: Performed By: #### L IPS #### [facility] [address] [address] MCHC (RBC) [Mass/Vol] 34.2 % Normal 31-37 [facility] Comment on above: Performed By: #### L IPS #### [facility] [address] [address] MCV (RBC) [Entitic vol] 96.2 fL Normal 80-100 [facility] Comment on above: Performed By: #### L IPS #### [facility] [address] [address] MEAN PLT VOL 8.8 CU Normal 7.0-12.6 [facility] Comment on above: Performed By: #### L IPS #### [facility] [address] [address] NRBC'S Normal 0 [facility] Comment on above: Result Comment: 0 Performed at [address] [address] Performed By: #### L IPS #### [address] [address] Platelets (Bld) [#/Vol] 218 10*3/uL Normal 150-450 [facility] Comment on above: Performed By: #### L IPS #### [address] [address] RBC (Bld) [#/Vol] 4.22 M/UL Normal 4.0-4.9 [facility] Comment on above: Performed By: #### L IPS #### [address] [address] RDW-SD 39.2 FL Normal 37.0-54.0 [facility] Comment on above: Performed By: #### L IPS #### [address] [address] WBC (Bld) [#/Vol] 5.4 10*3/uL Normal 4.5-11.0 [facility] Comment on above: Performed By: #### L IPS #### [address] [address] CMV AB IgGon 06-04-2019 CMV IgG Qual [facility] Comment on above: Result Comment: Posi tive Reference range: NEGATIVE Presence of detectable CMV IgG antibodies indicates either recent or past exposure to CMV. Performed By: #### L IPS #### [address] [address] Cytomegalovirus IgG [facility] Comment on above: Result Comment: 5.10 Unit: U/mL U/mL values are interpreted as follows: Negative: <0.60 Equivocal: >=0.60 to <0.70 Positive: >=0.70 The magnitude of the measured result above the cutoff is not indicative of the amount of antibody present. Performed at the [facility] unless otherwise noted. Performed By: #### L IPS #### [address] [address] CMV AB IgMon 06-04-2019 CMV IgM AB [facility] Comment on above: Result Comment: 10.7 Unit: AU/mL AU/mL values are interpreted as follows: Negative: <30.0 Equivocal: >=30.0 to <35.0 Positive: >=35.0 The magnitude of the measured result is not indicative of the amount of antibody present. Performed By: #### L IPS #### [address] [address] CMV IgM,Qual [facility] Comment on above: Result Comment: Nega tive Reference range: NEGATIVE Absence of detectable CMV IgM antibodies. If clinical exposure to hCMV is suspected despite a negative finding, a second sample should be collected and tested no less than one or two weeks later. Performed at the [facility] unless otherwise noted. Performed By: #### L IPS #### [address] [address] COMPREHENSIVE METABOLIC PANE Kavon 06-04-2019 ALT [Catalytic activity/Vol] High 5-40 [facility] Comment on above: Result Comment: 76 Performed at [address] [address] Performed By: #### L IPS #### [address] [address] Albumin [Mass/Vol] 4.1 g/dL Normal 3.5-5.0 [facility] Comment on above: Performed By: #### L IPS #### [address] [address] Albumin/Globulin [Mass ratio] 1.6 {ratio} Normal 1.5-3.0 [facility] Comment on above: Performed By: #### L IPS #### [facility] [address] [address] ALP [Catalytic activity/Vol] 218 U/L High 35-125 [facility] Comment on above: Performed By: #### L IPS #### [facility] [address] [place] [address] Anion gap [Moles/Vol] 14 mmol/L Normal 0-19 [facility] Comment on above: Performed By: #### L IPS #### [facility] [place] [address] [place] [address] AST [Catalytic activity/Vol] 15 U/L Normal 5-40 [facility] Comment on above: Performed By: #### L IPS #### [facility] [place] [address] [place] [address] Bilirubin [Mass/Vol] 0.3 mg/dL Normal 0.1-1.2 [facility] Comment on above: Performed By: #### L IPS #### [facility] [place] [address] [place] [address] Calcium [Mass/Vol] 9.1 mg/dL Normal 8.5-10.4 [facility] Comment on above: Performed By: #### L IPS #### [facility] [place] [address] [place] [address] Chloride [Moles/Vol] 106 mmol/L Normal 97-107 [facility] Comment on above: Performed By: #### L IPS #### [facility] [place] [address] [place] [address] CO2 [Moles/Vol] 20 mmol/L Low 24-31 [facility] Comment on above: Performed By: #### L IPS #### [facility] [place] [address] [place] [address] Creatinine [Mass/Vol] 0.7 mg/dL Normal 0.4-1.6 [facility] Comment on above: Performed By: #### L IPS #### [facility] [place] [address] [place] [address] Globulin (S) [Mass/Vol] 2.5 g/dL Normal 1.9-3.7 [facility] Comment on above: Performed By: #### L IPS #### [facility] [place] [address] [address] [place] [address] Glucose [Mass/Vol] 99 mg/dL Normal 65-99 [facility] Comment on above: Result Comment: 99 Performed at [address] [place] [address] Performed By: #### L IPS #### [facility] [address] [address] Potassium [Moles/Vol] 3.5 mmol/L Normal 3.4-5.1 [facility] Comment on above: Performed By: #### L IPS #### [facility] [address] [address] Protein [Mass/Vol] 6.6 g/dL Normal 5.9-7.9 [facility] Comment on above: Performed By: #### L IPS #### [facility] [address] [address] Sodium [Moles/Vol] 139 mmol/L Normal 133-145 [facility] Comment on above: Performed By: #### L IPS #### [facility] [address] [address] Urea nitrogen [Mass/Vol] 6 mg/dL Low 8-25 [facility] Comment on above: Performed By: #### L IPS #### [facility] [address] [address] Urea nitrogen/Creatinine [Mass ratio] 8.6 RATIO Normal 8-21 [facility] Comment on above: Performed By: #### L IPS #### [facility] [place] [address] [place] [address] PROTHROMBIN TIMEon 9 INR Coag (PPP) [Relative time] High 0.86-1.16 [facility] Comment on above: Result Comment: 1.2 INR Theraputic Range: 2.0-3.5 Performed at [address] [place] [address] Performed By: #### L IPS #### [facility] [address] [address] PT Coag (PPP) [Time] HEPARIN Normal [facility] Comment on above: Performed By: #### L IPS #### [facility] [address] [address] [place] [address] PT Coag (PPP) [Time] 12.3 s Normal 9.3-12.7 [facility] Comment on above: Performed By: #### L IPS #### [address] [address] TOXOPLASMA AB, IGGon 019 Toxo IgG Qual [facility] Comment on above: Result Comment: Posi [...] postulated. Performed By: #### L IPS #### [address] [address] TOXOPLASMA IgG AB [facility] Comment on above: Result Comment: 43.2 [...] methods and reagent specificity. Performed at the [facility] unless otherwise noted. Performed By: #### L IPS #### [address] [address] CBC WITHOUT DIFFon 9 Erythrocyte distribution width (RBC) [Ratio] 11.3 % Low 11.7-15.0 [facility] Comment on above: Performed By: #### C MECHANICAL ARTIST #### [address] [address] Hematocrit (Bld) [Volume fraction] 39.1 % Normal 36-44 [facility] Comment on above: Performed By: #### C MECHANICAL ARTIST #### [address] [address] Hemoglobin (Bld) [Mass/Vol] 13.2 g/dL Normal 12.0-15.0 [facility] Comment on above: Performed By: #### C MECHANICAL ARTIST #### [address] [address] MCH (RBC) [Entitic mass] 33.4 pg Normal 26-34 [facility] Comment on above: Performed By: #### C MECHANICAL ARTIST #### [facility] [address] [address] [place] [address] MCHC (RBC) [Mass/Vol] 33.8 % Normal 31-37 [facility] Comment on above: Performed By: #### C MECHANICAL ARTIST #### [facility] [address] [place] [address] MCV (RBC) [Entitic vol] 99.0 fL Normal 80-100 [facility] Comment on above: Performed By: #### C MECHANICAL ARTIST #### [facility] [place] [address] [place] [address] MEAN PLT VOL 8.4 CU Normal 7.0-12.6 [facility] Comment on above: Performed By: #### C MECHANICAL ARTIST #### [address] [address] [place] [address] NRBC'S Normal 0 [facility] Comment on above: Result Comment: 0 Performed at [place] [address] [facility] [address] Performed By: #### C MECHANICAL ARTIST #### [place] [address] [address] [place] [address] Platelets (Bld) [#/Vol] 189 10*3/uL Normal 150-450 [facility] Comment on above: Performed By: #### C MECHANICAL ARTIST #### [address] [address] [place] [address] RBC (Bld) [#/Vol] 3.95 M/UL Low 4.0-4.9 [facility] Comment on above: Performed By: #### C MECHANICAL ARTIST #### [facility] [address] [place] [address] RDW-SD 41.1 FL Normal 37.0-54.0 [facility] Comment on above: Performed By: #### C MECHANICAL ARTIST #### [facility] [address] [address] [place] [address] WBC (Bld) [#/Vol] 4.4 10*3/uL Low 4.5-11.0 [facility] Comment on above: Performed By: #### C MECHANICAL ARTIST #### [facility] [address] [address] [place] [address] COMPREHENSIVE METABOLIC PANE Kavon 06-02-2019 Creatinine [Mass/Vol] 0.7 mg/dL Normal 0.4-1.6 [facility] Comment on above: Performed By: #### L IPS #### Main Laboratory [address] [address] [place] [address] Urea nitrogen [Mass/Vol] Low 8-25 [facility] Comment on above: Result Comment: 2 RESULT CHECKED Performed By: #### L IPS #### [facility] [address] [place] [address] Urea nitrogen/Creatinine [Mass ratio] 2.9 RATIO Low 8-21 [facility] Comment on above: Performed By: #### L IPS #### [facility] [address] [place] [address] Albumin [Mass/Vol] 4.0 g/dL Normal 3.5-5.0 [facility] Comment on above: Performed By: #### L IPS #### [facility] [address] [address] [place] [address] Albumin/Globulin [Mass ratio] 1.9 {ratio} Normal 1.5-3.0 [facility] Comment on above: Performed By: #### L IPS #### [facility] [address] [place] [address] ALP [Catalytic activity/Vol] 240 U/L High 35-125 [facility] Comment on above: Performed By: #### L IPS #### [facility] [address] [place] [address] ALT [Catalytic activity/Vol] High 5-40 [facility] Comment on above: Result Comment: 132 Performed at [address] [place] [address] [place] [address] Performed By: #### L IPS #### [facility] [address] [address] [place] [address] Anion gap [Moles/Vol] 14 mmol/L Normal 0-19 [facility] Comment on above: Performed By: #### L IPS #### [facility] [address] [address] [place] [address] AST [Catalytic activity/Vol] 36 U/L Normal 5-40 [facility] Comment on above: Performed By: #### L IPS #### [facility] [address] [place] [address] Bilirubin [Mass/Vol] 0.3 mg/dL Normal 0.1-1.2 [facility] Comment on above: Performed By: #### L IPS #### [facility] [address] [place] [address] Calcium [Mass/Vol] 8.7 mg/dL Normal 8.5-10.4 [facility] Comment on above: Performed By: #### L IPS #### [facility] [address] [place] [address] Chloride [Moles/Vol] 111 mmol/L High 97-107 [facility] Comment on above: Performed By: #### L IPS #### [facility] [address] [place] [address] CO2 [Moles/Vol] 20 mmol/L Low 24-31 [facility] Comment on above: Performed By: #### L IPS #### [facility] [address] [place] [address] Globulin (S) [Mass/Vol] 2.1 g/dL Normal 1.9-3.7 [facility] Comment on above: Performed By: #### L IPS #### [facility] [address] [place] [address] Glucose [Mass/Vol] 108 mg/dL High 65-99 [facility] Comment on above: Performed By: #### L IPS #### [facility] [address] [place] [address] Potassium [Moles/Vol] 3.3 mmol/L Low 3.4-5.1 [facility] Comment on above: Performed By: #### L IPS #### [facility] [address] [place] [address] Protein [Mass/Vol] 6.1 g/dL Normal 5.9-7.9 [facility] Comment on above: Performed By: #### L IPS #### [facility] [address] [address] [place] [address] Sodium [Moles/Vol] 145 mmol/L Normal 133-145 [facility] Comment on above: Performed By: #### L IPS #### [place] [address] [address] [place] [address] CBC WITHOUT DIFFon 9 Erythrocyte distribution width (RBC) [Ratio] 11.1 % Low 11.7-15.0 [facility] Comment on above: Performed By: #### C MECHANICAL ARTIST #### [address] [address] [place] [address] Hematocrit (Bld) [Volume fraction] 38.1 % Normal 36-44 [facility] Comment on above: Performed By: #### C MECHANICAL ARTIST #### [address] [address] Hemoglobin (Bld) [Mass/Vol] 12.7 g/dL Normal 12.0-15.0 [facility] Comment on above: Performed By: #### C MECHANICAL ARTIST #### [address] [address] [place] [address] MCH (RBC) [Entitic mass] 33.3 pg Normal 26-34 [facility] Comment on above: Performed By: #### C MECHANICAL ARTIST #### [address] [address] MCHC (RBC) [Mass/Vol] 33.3 % Normal 31-37 [facility] Comment on above: Performed By: #### C MECHANICAL ARTIST #### [address] [address] [place] [address] MCV (RBC) [Entitic vol] 100.0 fL Normal 80-100 [facility] Comment on above: Performed By: #### C MECHANICAL ARTIST #### [address] [address] MEAN PLT VOL 8.4 CU Normal 7.0-12.6 [facility] Comment on above: Performed By: #### C MECHANICAL ARTIST #### [address] [address] [place] [address] NRBC'S Normal 0 [facility] Comment on above: Result Comment: 0 Performed at [address] [address] Performed By: #### C MECHANICAL ARTIST #### [facility] [place] [address] [address] Platelets (Bld) [#/Vol] 196 10*3/uL Normal 150-450 [facility] Comment on above: Performed By: #### C MECHANICAL ARTIST #### [facility] [address] [place] [address] [place] [address] RBC (Bld) [#/Vol] 3.81 M/UL Low 4.0-4.9 [facility] Comment on above: Performed By: #### C MECHANICAL ARTIST #### [facility] [address] [address] [address] [facility] [address] RDW-SD 40.8 FL Normal 37.0-54.0 [facility] Comment on above: Performed By: #### C MECHANICAL ARTIST #### [facility] [address] [place] [address] [address] [facility] [place] [address] WBC (Bld) [#/Vol] 3.8 10*3/uL Low 4.5-11.0 [facility] Comment on above: Performed By: #### C MECHANICAL ARTIST #### [facility] [address] [place] [address] [address] [facility] [address] COMPREHENSIVE METABOLIC PANE Kavon 06-01-2019 Albumin [Mass/Vol] 3.7 g/dL Normal 3.5-5.0 [facility] Comment on above: Performed By: #### C MECHANICAL ARTIST #### [facility] [address] [address] [place] [address] Albumin/Globulin [Mass ratio] 1.8 {ratio} Normal 1.5-3.0 [facility] Comment on above: Performed By: #### C MECHANICAL ARTIST #### [facility] [address] [place] [address] [address] [facility] [place] [address] ALP [Catalytic activity/Vol] 146 U/L High 35-125 [facility] Comment on above: Performed By: #### C MECHANICAL ARTIST #### [facility] [address] [address] [place] [address] ALT [Catalytic activity/Vol] High 5-40 [facility] Comment on above: Result Comment: 151 Performed at [place] [address] [place] [address] Performed By: #### C MECHANICAL ARTIST #### [facility] [address] [place] [address] Anion gap [Moles/Vol] 11 mmol/L Normal 0-19 [facility] Comment on above: Performed By: #### C MECHANICAL ARTIST #### [facility] [address] [place] [address] AST [Catalytic activity/Vol] 39 U/L Normal 5-40 [facility] Comment on above: Performed By: #### C MECHANICAL ARTIST #### [facility] [address] [place] [address] Bilirubin [Mass/Vol] 0.3 mg/dL Normal 0.1-1.2 [facility] Comment on above: Performed By: #### C MECHANICAL ARTIST #### [facility] [address] [place] [address] Calcium [Mass/Vol] 8.6 mg/dL Normal 8.5-10.4 [facility] Comment on above: Performed By: #### C MECHANICAL ARTIST #### [facility] [address] [place] [address] Chloride [Moles/Vol] 112 mmol/L High 97-107 [facility] Comment on above: Performed By: #### C MECHANICAL ARTIST #### [facility] [address] [address] [place] [address] CO2 [Moles/Vol] 20 mmol/L Low 24-31 [facility] Comment on above: Performed By: #### C MECHANICAL ARTIST #### [facility] [address] [address] [place] [address] Creatinine [Mass/Vol] 0.7 mg/dL Normal 0.4-1.6 [facility] Comment on above: Performed By: #### C MECHANICAL ARTIST #### [facility] [address] [place] [address] Globulin (S) [Mass/Vol] 2.1 g/dL Normal 1.9-3.7 [facility] Comment on above: Performed By: #### C MECHANICAL ARTIST #### [facility] [address] [place] [address] Glucose [Mass/Vol] 105 mg/dL High 65-99 [facility] Comment on above: Performed By: #### C MECHANICAL ARTIST #### [facility] [address] [place] [address] Potassium [Moles/Vol] 3.5 mmol/L Normal 3.4-5.1 [facility] Comment on above: Performed By: #### C MECHANICAL ARTIST #### [facility] [address] [place] [address] Protein [Mass/Vol] 5.8 g/dL Low 5.9-7.9 [facility] Comment on above: Performed By: #### C MECHANICAL ARTIST #### [facility] [address] [place] [address] Sodium [Moles/Vol] 143 mmol/L Normal 133-145 [facility] Comment on above: Performed By: #### C MECHANICAL ARTIST #### [facility] [address] [place] [address] Urea nitrogen [Mass/Vol] 3 mg/dL Low 8-25 [facility] Comment on above: Performed By: #### C MECHANICAL ARTIST #### [facility] [place] [address] [place] [address] Urea nitrogen/Creatinine [Mass ratio] 4.3 RATIO Low 8-21 [facility] Comment on above: Performed By: #### C MECHANICAL ARTIST #### [place] [address] [place] [address] GUIDED NEEDLE PLACEMENTon GUIDED NEEDLE PLACEMENT ADDEND *FINAL Date of Service: 06/01/2019 13:28 Adm #: [id number] Reading Dr:KAI SAINZ Signoff Dr: KAI SAINZ PROCEDURE: GUIDED NEEDLE PLACEMENT - [facility] 2519 REASON FOR EXAM: ELEVATED [...] Physician: KAI SAINZ MD Original Transcribed by/Date: PSYCHIATRIC Jun 01 2019 4:31P Original Electronically Signed by/Date: KAI SAINZ MD Jun 01 2019 4:31P Addendum Interpreting Physician: KAI SAINZ MD Addendum Transcribed by/Date: PSYCHIATRIC Jun 08 2019 8:21A Addendum Electronically Signed by/Date: KAI SAINZ MD Jun 08 2019 8:21A [facility] OVA AND PARASITE SCR,GIARDIA on 06-01-2019 OVA AND PARASITE SCR,GIARDIA Specimen source XXX: STOOL Performed at [place] [address] Service Cmnt XXX-Imp: NONE Performed at [place] [address] Microscopic observation: NEGATIVE FOR GIARDIA [place] [address] : FINAL 06/01/2019 [facility] Comment on above: Performed By: #### C MECHANICAL ARTIST #### [place] [address] PROTHROMBIN TIMEon 9 INR Coag (PPP) [Relative time] High 0.86-1.16 [facility] Comment on above: Result Comment: 1.3 INR Theraputic Range: 2.0-3.5 Performed at [place] [address] Performed By: #### C MECHANICAL ARTIST #### [place] [address] PT Coag (PPP) [Time] 14.0 s High 9.3-12.7 [facility] Comment on above: Performed By: #### C MECHANICAL ARTIST #### [address] [address] PT Coag (PPP) [Time] COUM+HEP [facility] Comment on above: Performed By: #### C MECHANICAL ARTIST #### [address] [address] [facility] 06-01-2019 [facility] Patient Name: DOROTHEA RUTLEDGE MR#: [id number] Specimen #[id number] Source: Ultrasound guided core needle biopsy left [...] Electronically Signed Out By THEODORE PAEZ D.O. [facility] Comment on above: Performed By: #### L IPS #### [address] [address] COMPREHENSIVE METABOLIC PANE Kavon 05-31-2019 Albumin [Mass/Vol] 3.8 g/dL Normal 3.5-5.0 [facility] Comment on above: Performed By: #### C MECHANICAL ARTIST #### [address] [address] Albumin/Globulin [Mass ratio] 1.9 {ratio} Normal 1.5-3.0 [facility] Comment on above: Performed By: #### C MECHANICAL ARTIST #### [address] [address] ALP [Catalytic activity/Vol] 158 U/L High 35-125 [facility] Comment on above: Performed By: #### C MECHANICAL ARTIST #### Main Laboratory [facility] [address] [place] [address] ALT [Catalytic activity/Vol] High 5-40 [facility] Comment on above: Result Comment: 180 Performed at [facility] [address] [place] [address] Performed By: #### C MECHANICAL ARTIST #### Main [facility] [place] [address] [place] [address] Anion gap [Moles/Vol] 13 mmol/L Normal 0-19 [facility] Comment on above: Performed By: #### C MECHANICAL ARTIST #### [facility] [place] [address] [place] [address] AST [Catalytic activity/Vol] 42 U/L High 5-40 [facility] Comment on above: Performed By: #### C MECHANICAL ARTIST #### [facility] [place] [address] [place] [address] Bilirubin [Mass/Vol] 0.3 mg/dL Normal 0.1-1.2 [facility] Comment on above: Performed By: #### C MECHANICAL ARTIST #### [facility] [address] [place] [place] [address] Calcium [Mass/Vol] 8.7 mg/dL Normal 8.5-10.4 [facility] Comment on above: Performed By: #### C MECHANICAL ARTIST #### [facility] [place] [address] [place] [address] Chloride [Moles/Vol] 109 mmol/L High 97-107 [facility] Comment on above: Performed By: #### C MECHANICAL ARTIST #### Main [facility] [place] [address] [place] [address] CO2 [Moles/Vol] 22 mmol/L Low 24-31 [facility] Comment on above: Performed By: #### C MECHANICAL ARTIST #### Main [facility] [place] [address] [place] [address] Creatinine [Mass/Vol] 0.8 mg/dL Normal 0.4-1.6 [facility] Comment on above: Performed By: #### C MECHANICAL ARTIST #### Main [facility] [place] [address] [place] [address] Globulin (S) [Mass/Vol] 2.0 g/dL Normal 1.9-3.7 [facility] Comment on above: Performed By: #### C MECHANICAL ARTIST #### [facility] [address] [address] Glucose [Mass/Vol] 101 mg/dL High 65-99 [facility] Comment on above: Performed By: #### C MECHANICAL ARTIST #### [facility] [address] [address] Potassium [Moles/Vol] 3.6 mmol/L Normal 3.4-5.1 [facility] Comment on above: Performed By: #### C MECHANICAL ARTIST #### [facility] [address] [address] Protein [Mass/Vol] 5.8 g/dL Low 5.9-7.9 [facility] Comment on above: Performed By: #### C MECHANICAL ARTIST #### [facility] [address] [address] Sodium [Moles/Vol] 143 mmol/L Normal 133-145 [facility] Comment on above: Performed By: #### C MECHANICAL ARTIST #### [facility] [address] [address] Urea nitrogen [Mass/Vol] 4 mg/dL Low 8-25 [facility] Comment on above: Performed By: #### C MECHANICAL ARTIST #### [facility] [address] [address] Urea nitrogen/Creatinine [Mass ratio] 5.0 RATIO Low 8-21 [facility] Comment on above: Performed By: #### C MECHANICAL ARTIST #### [facility] [address] [place] [address] FECALon 05-[address] FECAL Specimen source XXX : STOOL Performed at [address] [place] [address] Service Cmnt XXX-Imp: NONE Performed at [address] [place] [address] : NO WBC SEEN Performed at [address] [place] [address] : FINAL 05/31/2019 [facility] Comment on above: Performed By: #### C MECHANICAL ARTIST #### [facility] [place] [address] [place] [address] PROTHROMBIN TIMEon 9 INR Coag (PPP) [Relative time] High 0.86-1.16 [facility] Comment on above: Result Comment: 1.6 INR Theraputic Range: 2.0-3.5 Performed at [address] [address] Performed By: #### C MECHANICAL ARTIST #### [facility] [address] [address] PT Coag (PPP) [Time] 17.0 s High 9.3-12.7 [facility] Comment on above: Performed By: #### C MECHANICAL ARTIST #### [facility] [address] [address] PT Coag (PPP) [Time] COUM+HEP Normal [facility] Comment on above: Performed By: #### C MECHANICAL ARTIST #### [facility] [address] [address] ADD ON LAB REQUESTon 019 ADD ON REQUEST Normal [facility] Comment on above: Result Comment: ADDE D UNABLE TO ADD ON PTB Performed at [address] [address] Performed By: #### C BCN #### [address] [address] ADD ON TESTS NO BLUE TOP AVAILABLE Normal [facility] Comment on above: Performed By: #### C BCN #### [facility] [address] [address] CBC WITHOUT DIFFon 9 Erythrocyte distribution width (RBC) [Ratio] 11.4 % Low 11.7-15.0 [facility] Comment on above: Performed By: #### C BCN #### [facility] [place] [address] [place] [address] Hematocrit (Bld) [Volume fraction] 36.6 % Normal 36-44 [facility] Comment on above: Performed By: #### C BCN #### [facility] [address] [address] Hemoglobin (Bld) [Mass/Vol] 12.3 g/dL Normal 12.0-15.0 [facility] Comment on above: Performed By: #### C BCN #### [facility] [place] [address] [place] [address] MCH (RBC) [Entitic mass] 33.9 pg Normal 26-34 [facility] Comment on above: Performed By: #### C BCN #### [facility] [place] [address] [address] [place] [place] [address] MCHC (RBC) [Mass/Vol] 33.6 % Normal 31-37 [facility] Comment on above: Performed By: #### C BCN #### [facility] [address] [place] [address] MCV (RBC) [Entitic vol] 100.8 fL High 80-100 [facility] Comment on above: Performed By: #### C BCN #### [facility] [address] [place] [address] MEAN PLT VOL 8.6 CU Normal 7.0-12.6 [facility] Comment on above: Performed By: #### C BCN #### [facility] [place] [address] [place] [address] NRBC'S Normal 0 [facility] Comment on above: Result Comment: 0 Performed at [address] [place] [address] [place] [address] Performed By: #### C BCN #### [facility] [address] [place] [place] [address] Platelets (Bld) [#/Vol] 196 10*3/uL Normal 150-450 [facility] Comment on above: Performed By: #### C BCN #### [facility] [address] [place] [address] RBC (Bld) [#/Vol] 3.63 M/UL Low 4.0-4.9 [facility] Comment on above: Performed By: #### C BCN #### [facility] [address] [address] [place] [address] RDW-SD 42.0 FL Normal 37.0-54.0 [facility] Comment on above: Performed By: #### C BCN #### [facility] [address] [address] WBC (Bld) [#/Vol] 3.1 10*3/uL Low 4.5-11.0 [facility] Comment on above: Performed By: #### C BCN #### [facility] [address] [address] CDIF TOX. DETECTION,EIAon CDIF TOX. DETECTION,EIA Normal [facility] Comment on above: Result Comment: NEGA TIVE TEST: C. DIFFICILE TOXIN NEGATIVE BY EIA. NEGATIVE RESULT REQUIRES CLINICAL INTERPRETATION. RESULT MAY INDICATE COLONIZATION OR MAY REPRESENT A CLINICAL FALSE NEGATIVE IN THE PRESENCE OF TRUE INFECTION. IF NNECESSARY, CONSIDER GI AND/OR ID CONSULTATION. RESULTS CALLED TO MARTHA ECKERT 05/30/19 1330 Performed at [address] [address] Performed By: #### C BCN #### [address] [address] COMPREHENSIVE METABOLIC PANE Kavon 05-30-2019 Albumin [Mass/Vol] 3.8 g/dL Normal 3.5-5.0 [facility] Comment on above: Performed By: #### C BCN #### [address] [address] Albumin/Globulin [Mass ratio] 1.8 {ratio} Normal 1.5-3.0 [facility] Comment on above: Performed By: #### C BCN #### [facility] [address] [address] ALP [Catalytic activity/Vol] 156 U/L High 35-125 [facility] Comment on above: Performed By: #### C BCN #### [facility] [address] [address] ALT [Catalytic activity/Vol] High 5-40 [facility] Comment on above: Result Comment: 210 Performed at [address] [address] Performed By: #### C BCN #### [facility] [place] [address] [place] [address] Anion gap [Moles/Vol] 10 mmol/L Normal 0-19 [facility] Comment on above: Performed By: #### C BCN #### [facility] [address] [place] [address] AST [Catalytic activity/Vol] 44 U/L High 5-40 [facility] Comment on above: Performed By: #### C BCN #### [facility] [address] [place] [address] Bilirubin [Mass/Vol] 0.3 mg/dL Normal 0.1-1.2 [facility] Comment on above: Performed By: #### C BCN #### [facility] [address] [place] [address] Calcium [Mass/Vol] 8.4 mg/dL Low 8.5-10.4 [facility] Comment on above: Performed By: #### C BCN #### [facility] [address] [address] [place] [address] Chloride [Moles/Vol] 111 mmol/L High 97-107 [facility] Comment on above: Performed By: #### C BCN #### [facility] [address] [address] [place] [address] CO2 [Moles/Vol] 20 mmol/L Low 24-31 [facility] Comment on above: Performed By: #### C BCN #### [facility] [address] [address] [place] [address] Creatinine [Mass/Vol] 0.8 mg/dL Normal 0.4-1.6 [facility] Comment on above: Performed By: #### C BCN #### [facility] [address] [place] [address] Globulin (S) [Mass/Vol] 2.1 g/dL Normal 1.9-3.7 [facility] Comment on above: Performed By: #### C BCN #### [facility] [address] [place] [address] Glucose [Mass/Vol] 91 mg/dL Normal 65-99 [facility] Comment on above: Performed By: #### C BCN #### [facility] [address] [place] [address] Potassium [Moles/Vol] 3.8 mmol/L Normal 3.4-5.1 [facility] Comment on above: Performed By: #### C BCN #### [facility] [address] [place] [address] Protein [Mass/Vol] 5.9 g/dL Normal 5.9-7.9 [facility] Comment on above: Performed By: #### C BCN #### [facility] [address] [place] [address] Sodium [Moles/Vol] 141 mmol/L Normal 133-145 [facility] Comment on above: Performed By: #### C BCN #### [facility] [address] [place] [address] Urea nitrogen [Mass/Vol] 3 mg/dL Low 8-25 [facility] Comment on above: Performed By: #### C BCN #### [facility] [place] [address] [place] [place] [address] Urea nitrogen/Creatinine [Mass ratio] 3.8 RATIO Low 8-21 [facility] Comment on above: Performed By: #### C BCN #### [facility] [address] [place] [address] [place] [address] PROTHROMBIN TIMEon 9 INR Coag (PPP) [Relative time] High 0.86-1.16 [facility] Comment on above: Result Comment: 1.8 INR Theraputic Range: 2.0-3.5 Performed at [address] [place] [address] [address] [address] Performed By: #### C MECHANICAL ARTIST #### [facility] [address] [place] [address] [place] [address] PT Coag (PPP) [Time] Normal [facility] Comment on above: Result Comment: PREV IOUSLY ON HEPARIN PREVIOUSLY ON COUMADIN Performed By: #### C MECHANICAL ARTIST #### [facility] [address] [place] [address] [place] [address] PT Coag (PPP) [Time] 18.1 s High 9.3-12.7 [facility] Comment on above: Performed By: #### C MECHANICAL ARTIST #### [facility] [address] [address] [place] [address] CBC WITHOUT DIFFon 9 Erythrocyte distribution width (RBC) [Ratio] 11.4 % Low 11.7-15.0 [facility] Comment on above: Performed By: #### C BCN #### [facility] [address] [place] [address] Hematocrit (Bld) [Volume fraction] 37.0 % Normal 36-44 [facility] Comment on above: Performed By: #### C BCN #### [facility] [address] [address] [place] [address] Hemoglobin (Bld) [Mass/Vol] 12.3 g/dL Normal 12.0-15.0 [facility] Comment on above: Performed By: #### C BCN #### [facility] [address] [address] [place] [address] MCH (RBC) [Entitic mass] 33.1 pg Normal 26-34 [facility] Comment on above: Performed By: #### C BCN #### [facility] [address] [address] [place] [address] MCHC (RBC) [Mass/Vol] 33.2 % Normal 31-37 [facility] Comment on above: Performed By: #### C BCN #### [facility] [address] [place] [address] MCV (RBC) [Entitic vol] 99.5 fL Normal 80-100 [facility] Comment on above: Performed By: #### C BCN #### [facility] [address] [place] [address] MEAN PLT VOL 8.7 CU Normal 7.0-12.6 [facility] Comment on above: Performed By: #### C BCN #### [facility] [address] [place] [address] NRBC'S Normal 0 [facility] Comment on above: Result Comment: 0 Performed at [address] [place] [address] Performed By: #### C BCN #### [facility] [address] [place] [address] Platelets (Bld) [#/Vol] 220 10*3/uL Normal 150-450 [facility] Comment on above: Performed By: #### C BCN #### [facility] [address] [place] [address] RBC (Bld) [#/Vol] 3.72 M/UL Low 4.0-4.9 [facility] Comment on above: Performed By: #### C BCN #### [facility] [address] [place] [address] RDW-SD 41.5 FL Normal 37.0-54.0 [facility] Comment on above: Performed By: #### C BCN #### [facility] [address] [address] [place] [address] WBC (Bld) [#/Vol] 3.8 10*3/uL Low 4.5-11.0 [facility] Comment on above: Performed By: #### C BCN #### [facility] [address] [facility] [address] COMPREHENSIVE METABOLIC PANE Kavon 05-29-2019 Albumin [Mass/Vol] 3.4 g/dL Low 3.5-5.0 [facility] Comment on above: Performed By: #### C BCN #### [place] [place] [address] Albumin/Globulin [Mass ratio] 1.5 {ratio} Normal 1.5-3.0 [facility] Comment on above: Performed By: #### C BCN #### [address] [place] [address] ALP [Catalytic activity/Vol] 158 U/L High 35-125 [facility] Comment on above: Performed By: #### C BCN #### [facility] [address] [place] [address] ALT [Catalytic activity/Vol] High 5-40 [facility] Comment on above: Result Comment: 264 SAMPLE SLIGHTLY HEMOLYZED, RESULTS MAY BE AFFECTED Performed at [place] [address] [facility] [place] [address] Performed By: #### C BCN #### [facility] [address] [place] [address] Anion gap [Moles/Vol] 12 mmol/L Normal 0-19 [facility] Comment on above: Performed By: #### C BCN #### [facility] [address] [place] [address] AST [Catalytic activity/Vol] High 5-40 [facility] Comment on above: Result Comment: 56 SAMPLE SLIGHTLY HEMOLYZED, RESULTS MAY BE AFFECTED Performed By: #### C BCN #### [facility] [address] [place] [address] Bilirubin [Mass/Vol] 0.3 mg/dL Normal 0.1-1.2 [facility] Comment on above: Performed By: #### C BCN #### [facility] [address] [place] [address] Calcium [Mass/Vol] 8.4 mg/dL Low 8.5-10.4 [facility] Comment on above: Performed By: #### C BCN #### [facility] [address] [place] [address] Chloride [Moles/Vol] 112 mmol/L High 97-107 [facility] Comment on above: Performed By: #### C BCN #### [facility] [address] [place] [place] [address] CO2 [Moles/Vol] 18 mmol/L Low 24-31 [facility] Comment on above: Performed By: #### C BCN #### [facility] [address] [place] [place] [address] Creatinine [Mass/Vol] 0.7 mg/dL Normal 0.4-1.6 [facility] Comment on above: Performed By: #### C BCN #### [facility] [address] [place] [place] [address] Globulin (S) [Mass/Vol] 2.2 g/dL Normal 1.9-3.7 [facility] Comment on above: Performed By: #### C BCN #### [facility] [address] [place] [address] Glucose [Mass/Vol] 97 mg/dL Normal 65-99 [facility] Comment on above: Performed By: #### C BCN #### [facility] [address] [place] [address] Potassium [Moles/Vol] Normal 3.4-5.1 [facility] Comment on above: Result Comment: 4.1 SAMPLE SLIGHTLY HEMOLYZED, RESULTS MAY BE AFFECTED Performed By: #### C BCN #### [address] [place] [address] Protein [Mass/Vol] 5.6 g/dL Low 5.9-7.9 [facility] Comment on above: Performed By: #### C BCN #### [place] [address] [place] [address] Sodium [Moles/Vol] 141 mmol/L Normal 133-145 [facility] Comment on above: Performed By: #### C BCN #### [place] [address] [place] [address] Urea nitrogen [Mass/Vol] 4 mg/dL Low 8-25 [facility] Comment on above: Performed By: #### C BCN #### [place] [address] [place] [address] Urea nitrogen/Creatinine [Mass ratio] 5.7 RATIO Low 8-21 [facility] Comment on above: Performed By: #### C BCN #### [place] [address] [place] [address] PROTHROMBIN TIMEon 9 INR Coag (PPP) [Relative time] High 0.86-1.16 [facility] Comment on above: Result Comment: 1.2 INR Theraputic Range: 2.0-3.5 Performed at [place] [address] [facility] [place] [address] Performed By: #### C BCN #### [place] [address] [place] [address] PT Coag (PPP) [Time] 13.0 s High 9.3-12.7 [facility] Comment on above: Performed By: #### C BCN #### [address] [place] [address] PT Coag (PPP) [Time] COUM+HEP Normal [facility] Comment on above: Performed By: #### C BCN #### [address] [place] [place] [address] ADD ON LAB REQUESTon 019 ADD ON REQUEST Normal [facility] Comment on above: Result Comment: ADDN OK Performed at [place] [address] [facility] [address] Performed By: #### A DDON #### [address] [place] [address] ADD ON TESTS PTB TO BE COLLECTED Normal [facility] Comment on above: Performed By: #### A DDON #### [address] [place] [address] AMYLASEon 05-28-2019 Amylase [Catalytic activity/Vol] Normal 28-100 [facility] Comment on above: Result Comment: 36 Performed at [place] [address] [place] [address] Performed By: #### A MYL #### [place] [address] [place] [address] CBC WITHOUT DIFFon 9 Erythrocyte distribution width (RBC) [Ratio] 11.5 % Low 11.7-15.0 [facility] Comment on above: Performed By: #### C BCN #### [address] [place] [address] Hematocrit (Bld) [Volume fraction] 37.0 % Normal 36-44 [facility] Comment on above: Performed By: #### C BCN #### [address] [place] [address] Hemoglobin (Bld) [Mass/Vol] 12.6 g/dL Normal 12.0-15.0 [facility] Comment on above: Performed By: #### C BCN #### [place] [address] [place] [address] MCH (RBC) [Entitic mass] 33.9 pg Normal 26-34 [facility] Comment on above: Performed By: #### C BCN #### [place] [id number] [place] [address] MCHC (RBC) [Mass/Vol] 34.1 % Normal 31-37 [facility] Comment on above: Performed By: #### C BCN #### [facility] [address] [place] [address] MCV (RBC) [Entitic vol] 99.5 fL Normal 80-100 [facility] Comment on above: Performed By: #### C BCN #### [facility] [address] [place] [place] [address] MEAN PLT VOL 8.7 CU Normal 7.0-12.6 [facility] Comment on above: Performed By: #### C BCN #### [facility] [address] [place] [address] NRBC'S Normal 0 [facility] Comment on above: Result Comment: 0 Performed at [place] [address] [facility] [address] Performed By: #### C BCN #### [facility] [place] [address] [place] [address] Platelets (Bld) [#/Vol] 198 10*3/uL Normal 150-450 [facility] Comment on above: Performed By: #### C BCN #### [facility] [place] [place] [address] RBC (Bld) [#/Vol] 3.72 M/UL Low 4.0-4.9 [facility] Comment on above: Performed By: #### C BCN #### [facility] [address] [place] [address] RDW-SD 42.0 FL Normal 37.0-54.0 [facility] Comment on above: Performed By: #### C BCN #### [facility] [address] [place] [place] [address] WBC (Bld) [#/Vol] 3.4 10*3/uL Low 4.5-11.0 [facility] Comment on above: Performed By: #### C BCN #### [facility] [place] [address] [place] [address] COMPREHENSIVE METABOLIC PANE Kavon 05-28-2019 Albumin [Mass/Vol] 3.7 g/dL Normal 3.5-5.0 [facility] Comment on above: Performed By: #### C BCN #### [facility] [place] [address] [place] [address] Albumin/Globulin [Mass ratio] 1.8 {ratio} Normal 1.5-3.0 [facility] Comment on above: Performed By: #### C BCN #### [facility] [address] [place] [place] [address] ALP [Catalytic activity/Vol] 178 U/L High 35-125 [facility] Comment on above: Performed By: #### C BCN #### [facility] [address] [place] [address] [place] [address] ALT [Catalytic activity/Vol] High 5-40 [facility] Comment on above: Result Comment: 364 Performed at [place] [address] [place] [address] Performed By: #### C BCN #### [facility] [place] [address] [place] [address] Anion gap [Moles/Vol] 13 mmol/L Normal 0-19 [facility] Comment on above: Performed By: #### C BCN #### [facility] [place] [address] [place] [address] AST [Catalytic activity/Vol] 88 U/L High 5-40 [facility] Comment on above: Performed By: #### C BCN #### [facility] [place] [address] [place] [address] Bilirubin [Mass/Vol] 0.5 mg/dL Normal 0.1-1.2 [facility] Comment on above: Performed By: #### C BCN #### [facility] [address] [place] [place] [address] Calcium [Mass/Vol] 8.4 mg/dL Low 8.5-10.4 [facility] Comment on above: Performed By: #### C BCN #### [facility] [place] [address] [place] [address] Chloride [Moles/Vol] 108 mmol/L High 97-107 [facility] Comment on above: Performed By: #### C BCN #### [facility] [address] [address] [place] [place] [address] CO2 [Moles/Vol] 18 mmol/L Low 24-31 [facility] Comment on above: Performed By: #### C BCN #### [facility] [address] [facility] [place] [address] Creatinine [Mass/Vol] 0.7 mg/dL Normal 0.4-1.6 [facility] Comment on above: Performed By: #### C BCN #### [facility] [place] [address] [address] [place] [place] [address] Globulin (S) [Mass/Vol] 2.1 g/dL Normal 1.9-3.7 [facility] Comment on above: Performed By: #### C BCN #### [place] [address] [place] [place] [address] Glucose [Mass/Vol] 95 mg/dL Normal 65-99 [facility] Comment on above: Performed By: #### C BCN #### [place] [address] [place] [place] [address] Potassium [Moles/Vol] 3.8 mmol/L Normal 3.4-5.1 [facility] Comment on above: Performed By: #### C BCN #### [place] [address] [place] [place] [address] Protein [Mass/Vol] 5.8 g/dL Low 5.9-7.9 [facility] Comment on above: Performed By: #### C BCN #### [facility] [address] [facility] [place] [address] Sodium [Moles/Vol] 139 mmol/L Normal 133-145 [facility] Comment on above: Performed By: #### C BCN #### [facility] [address] [facility] [place] [address] Urea nitrogen [Mass/Vol] 4 mg/dL Low 8-25 [facility] Comment on above: Performed By: #### C BCN #### [facility] [place] [address] [place] [address] Urea nitrogen/Creatinine [Mass ratio] 5.7 RATIO Low 8-21 [facility] Comment on above: Performed By: #### C BCN #### [facility] [place] [address] [place] [address] LIPASE PSon 05-28-2019 LIPASE PS Low 16-63 [facility] Comment on above: Result Comment: 15 Performed at [place] [address] [facility] [address] Performed By: #### C BCN #### [facility] [place] [address] [place] [address] PROTHROMBIN TIMEon 9 INR Coag (PPP) [Relative time] High 0.86-1.16 [facility] Comment on above: Result Comment: 1.2 INR Theraputic Range: 2.0-3.5 Performed at [place] [address] [facility] [address] Performed By: #### C BCN #### [facility] [place] [address] [place] [address] PT Coag (PPP) [Time] 12.5 s Normal 9.3-12.7 [facility] Comment on above: Performed By: #### C BCN #### [facility] [place] [address] [place] [address] PT Coag (PPP) [Time] HISTORY OF COUMADIN Normal [facility] Comment on above: Performed By: #### C BCN #### [facility] [place] [address] [place] [address] CBC WITHOUT DIFFon 9 Erythrocyte distribution width (RBC) [Ratio] 11.4 % Low 11.7-15.0 [facility] Comment on above: Performed By: #### C BCN #### [facility] [place] [address] [place] [address] Hematocrit (Bld) [Volume fraction] 37.9 % Normal 36-44 [facility] Comment on above: Performed By: #### C BCN #### [facility] [place] [address] [place] [address] Hemoglobin (Bld) [Mass/Vol] 12.8 g/dL Normal 12.0-15.0 [facility] Comment on above: Performed By: #### C BCN #### [facility] [place] [address] [facility] [place] [address] MCH (RBC) [Entitic mass] 33.5 pg Normal 26-34 [facility] Comment on above: Performed By: #### C BCN #### [facility] [place] [address] [place] [address] MCHC (RBC) [Mass/Vol] 33.8 % Normal 31-37 [facility] Comment on above: Performed By: #### C BCN #### [facility] [place] [address] [facility] [place] [address] MCV (RBC) [Entitic vol] 99.2 fL Normal 80-100 [facility] Comment on above: Performed By: #### C BCN #### [place] [address] [address] [facility] [place] [address] MEAN PLT VOL 8.7 CU Normal 7.0-12.6 [facility] Comment on above: Performed By: #### C BCN #### [place] [address] [address] [facility] [place] [address] NRBC'S Normal 0 [facility] Comment on above: Result Comment: 0 Performed at [place] [address] [facility] [place] [address] Performed By: #### C BCN #### [place] [address] [facility] [place] [address] Platelets (Bld) [#/Vol] 175 10*3/uL Normal 150-450 [facility] Comment on above: Performed By: #### C BCN #### [facility] [place] [address] [address] [facility] [place] [address] RBC (Bld) [#/Vol] 3.82 M/UL Low 4.0-4.9 [facility] Comment on above: Performed By: #### C BCN #### [facility] [place] [address] [address] [place] [address] RDW-SD 41.3 FL Normal 37.0-54.0 [facility] Comment on above: Performed By: #### C BCN #### [facility] [place] [address] [place] [address] WBC (Bld) [#/Vol] 4.3 10*3/uL Low 4.5-11.0 [facility] Comment on above: Performed By: #### C BCN #### [facility] [place] [address] [place] [address] CBC with Diffon 05-27-2019 AB IMMATURE NEUT 0.01 K/UL Normal 0.0-0.1 [facility] Comment on above: Performed By: #### C BCD #### [facility] [place] [address] [place] [address] ABS BASO 0.04 K/UL Normal 0.00-0.22 [facility] Comment on above: Performed By: #### C BCD #### [facility] [address] [address] ABS EOS 0.12 K/UL Normal 0-0.45 [facility] Comment on above: Performed By: #### C BCD #### [facility] [address] [address] ABS NEUTROPHILS 1.61 K/UL Low 1.8-7.7 [facility] Comment on above: Performed By: #### C BCD #### [facility] [address] [address] ABS.NEUT.CALCULATED Normal [facility] Comment on above: Result Comment: 1.61 Performed at [address] [address] Performed By: #### C BCD #### [address] [address] Basophils/100 WBC (Bld) 0.90 % Normal 0-1 [facility] Comment on above: Performed By: #### C BCD #### [facility] [address] [address] DIFF TYPE Normal [facility] Comment on above: Result Comment: AUTO DIFF SMEAR REVIEWED AND FOUND CONSISTENT WITH AUTOMATED DIFFERENTIAL Performed By: #### C BCD #### [facility] [address] [address] Eosinophils/100 WBC (Bld) 2.80 % Normal 0-3 [facility] Comment on above: Performed By: #### C BCD #### [facility] [address] [place] [address] Erythrocyte distribution width (RBC) [Ratio] 11.6 % Low 11.7-15.0 [facility] Comment on above: Performed By: #### C BCD #### [facility] [address] [place] [address] Hematocrit (Bld) [Volume fraction] 37.9 % Normal 36-44 [facility] Comment on above: Performed By: #### C BCD #### [facility] [address] [place] [address] Hemoglobin (Bld) [Mass/Vol] 13.2 g/dL Normal 12.0-15.0 [facility] Comment on above: Performed By: #### C BCD #### [place] [address] [place] [address] Lymphocytes (Bld) [#/Vol] 2.08 10*3/uL Normal 1.2-3.2 [facility] Comment on above: Performed By: #### C BCD #### [facility] [address] [place] [address] Lymphocytes/100 WBC (Bld) 49.30 % High 20-40 [facility] Comment on above: Performed By: #### C BCD #### [facility] [address] [place] [address] MCH (RBC) [Entitic mass] 33.7 pg Normal 26-34 [facility] Comment on above: Performed By: #### C BCD #### [facility] [address] [place] [address] MCHC (RBC) [Mass/Vol] 34.8 % Normal 31-37 [facility] Comment on above: Performed By: #### C BCD #### [facility] [address] [place] [address] MCV (RBC) [Entitic vol] 96.7 fL Normal 80-100 [facility] Comment on above: Performed By: #### C BCD #### [place] [address] [place] [address] MEAN PLT VOL 8.5 CU Normal 7.0-12.6 [facility] Comment on above: Performed By: #### C BCD #### [place] [address] [place] [address] Monocytes (Bld) [#/Vol] 0.36 10*3/uL Normal 0-0.8 [facility] Comment on above: Performed By: #### C BCD #### [place] [address] [place] [address] Monocytes/100 WBC (Bld) 8.50 % High 0-8 [facility] Comment on above: Performed By: #### C BCD #### [place] [address] [place] [address] Neutrophils/100 WBC (Bld) 0.20 % Normal 0.0-1.0 [facility] Comment on above: Performed By: #### C BCD #### [place] [address] [place] [address] Neutrophils/100 WBC (Bld) 38.30 % Low 50-70 [facility] Comment on above: Performed By: #### C BCD #### [place] [address] [place] [address] NRBC'S 0 /100 WBC Normal 0 [facility] Comment on above: Performed By: #### C BCD #### [place] [address] [place] [address] Platelets (Bld) [#/Vol] 208 10*3/uL Normal 150-450 [facility] Comment on above: Performed By: #### C BCD #### [facility] [place] [address] [place] [address] RBC (Bld) [#/Vol] 3.92 M/UL Low 4.0-4.9 [facility] Comment on above: Performed By: #### C BCD #### [place] [address] [place] [address] RDW-SD 41.1 FL Normal 37.0-54.0 [facility] Comment on above: Performed By: #### C BCD #### [facility] [place] [address] [place] [address] WBC (Bld) [#/Vol] 4.2 10*3/uL Low 4.5-11.0 [facility] Comment on above: Performed By: #### C BCD #### [facility] [place] [address] [place] [address] COMPREHENSIVE METABOLIC PANE Kavon 05-27-2019 Albumin [Mass/Vol] 3.8 g/dL Normal 3.5-5.0 [facility] Comment on above: Performed By: #### C MECHANICAL ARTIST #### [facility] [place] [address] [place] [address] Albumin/Globulin [Mass ratio] 1.7 {ratio} Normal 1.5-3.0 [facility] Comment on above: Performed By: #### C MECHANICAL ARTIST #### [facility] [place] [address] [address] [address] ALP [Catalytic activity/Vol] 193 U/L High 35-125 [facility] Comment on above: Performed By: #### C MECHANICAL ARTIST #### [facility] [place] [address] [place] [address] ALT [Catalytic activity/Vol] High 5-40 [facility] Comment on above: Result Comment: 510 Performed at [place] [address] [facility] [address] Performed By: #### C MECHANICAL ARTIST #### [facility] [place] [address] [address] [address] Anion gap [Moles/Vol] 9 mmol/L Normal 0-19 [facility] Comment on above: Performed By: #### C MECHANICAL ARTIST #### [facility] [place] [address] [place] [address] AST [Catalytic activity/Vol] 207 U/L High 5-40 [facility] Comment on above: Performed By: #### C MECHANICAL ARTIST #### [facility] [place] [address] [address] [address] Bilirubin [Mass/Vol] 0.5 mg/dL Normal 0.1-1.2 [facility] Comment on above: Performed By: #### C MECHANICAL ARTIST #### [facility] [place] [address] [place] [address] Calcium [Mass/Vol] 8.9 mg/dL Normal 8.5-10.4 [facility] Comment on above: Performed By: #### C MECHANICAL ARTIST #### [facility] [place] [address] [place] [address] Chloride [Moles/Vol] 109 mmol/L High 97-107 [facility] Comment on above: Performed By: #### C MECHANICAL ARTIST #### [facility] [place] [address] [place] [address] CO2 [Moles/Vol] 24 mmol/L Normal 24-31 [facility] Comment on above: Performed By: #### C MECHANICAL ARTIST #### [facility] [place] [address] [place] [address] Creatinine [Mass/Vol] 0.8 mg/dL Normal 0.4-1.6 [facility] Comment on above: Performed By: #### C MECHANICAL ARTIST #### [facility] [place] [address] [address] [place] [address] Globulin (S) [Mass/Vol] 2.2 g/dL Normal 1.9-3.7 [facility] Comment on above: Performed By: #### C MECHANICAL ARTIST #### [facility] [place] [address] [place] [address] Glucose [Mass/Vol] 109 mg/dL High 65-99 [facility] Comment on above: Performed By: #### C MECHANICAL ARTIST #### [facility] [place] [address] [address] [address] Potassium [Moles/Vol] 4.7 mmol/L Normal 3.4-5.1 [facility] Comment on above: Performed By: #### C MECHANICAL ARTIST #### [facility] [place] [address] [place] [address] Protein [Mass/Vol] 6.0 g/dL Normal 5.9-7.9 [facility] Comment on above: Performed By: #### C MECHANICAL ARTIST #### [facility] [place] [address] [place] [address] Sodium [Moles/Vol] 142 mmol/L Normal 133-145 [facility] Comment on above: Performed By: #### C MECHANICAL ARTIST #### [facility] [place] [address] [place] [address] Urea nitrogen [Mass/Vol] 6 mg/dL Low 8-25 [facility] Comment on above: Performed By: #### C MECHANICAL ARTIST #### [facility] [place] [address] [place] [address] Urea nitrogen/Creatinine [Mass ratio] 7.5 RATIO Low 8-21 [facility] Comment on above: Performed By: #### C MECHANICAL ARTIST #### [facility] [place] [address] [place] [address] HEPATIC FUNCTION PANELon AST [Catalytic activity/Vol] 123 U/L High 5-40 [facility] Comment on above: Performed By: #### L IV #### [facility] [place] [address] [place] [address] Albumin [Mass/Vol] 4.0 g/dL Normal 3.5-5.0 [facility] Comment on above: Performed By: #### L IV #### [facility] [place] [address] [place] [address] Albumin/Globulin [Mass ratio] Normal 1.5-3.0 [facility] Comment on above: Result Comment: 1.7 Performed at [place] [address] [place] [address] Performed By: #### L IV #### [facility] [place] [address] [place] [address] ALP [Catalytic activity/Vol] 190 U/L High 35-125 [facility] Comment on above: Performed By: #### L IV #### [facility] [place] [address] [place] [address] ALT [Catalytic activity/Vol] 447 U/L High 5-40 [facility] Comment on above: Performed By: #### L IV #### [facility] [place] [address] [place] [address] Bilirubin [Mass/Vol] 0.4 mg/dL Normal 0.1-1.2 [facility] Comment on above: Performed By: #### L IV #### [facility] [place] [address] [place] [address] BILIRUBIN INDIRECT 0.2 MG/DL Normal 0-0.8 [facility] Comment on above: Performed By: #### L IV #### [address] [address] Bilirubin.direct [Mass/Vol] Normal 0.0-0.2 [facility] Comment on above: Result Comment: 0.2 LESS THAN Performed By: #### L IV #### [address] [address] Globulin (S) [Mass/Vol] 2.3 g/dL Normal 1.9-3.7 [facility] Comment on above: Performed By: #### L IV #### [address] [address] Protein [Mass/Vol] 6.3 g/dL Normal 5.9-7.9 [facility] Comment on above: Performed By: #### L IV #### [address] [address] LIPASE PSon 05-27-2019 LIPASE PS Normal 16-63 [facility] Comment on above: Result Comment: 29 Performed at [address] [address] Performed By: #### L IPS #### [address] [address] UA-REFLEX TO CULTUREon 05-27 BACT Negative [facility] Comment on above: Performed By: #### U ACUL #### [address] [address] MICROSCOPIC AUTOMATIC MICROSCOPI C URINES [facility] Comment on above: Performed By: #### U ACUL #### [address] [address] RBC (Bld) [#/Vol] NONE SEEN Normal 0-3 [facility] Comment on above: Performed By: #### U ACUL #### [address] [address] URINE HYALINE CAST NONE SEEN Normal [facility] Comment on above: Performed By: #### U ACUL #### [place] [address] [place] [address] URINE SQUAMOUS EPI NONE SEEN Normal [facility] Comment on above: Performed By: #### U ACUL #### [facility] [place] [address] [place] [address] WBC (Bld) [#/Vol] NONE SEEN Normal 0-3 [facility] Comment on above: Performed By: #### U ACUL #### [facility] [place] [address] [place] [address] Bacteria identified Cx Nom (U) [facility] Comment on above: Result Comment: CULT URE NOT INDICATED Performed at [place] [address] [facility] [place] [address] Performed By: #### U ACUL #### [facility] [place] [address] [place] [address] BILI Negative Normal NEG [facility] Comment on above: Performed By: #### U ACUL #### [facility] [place] [address] [place] [address] BLOOD Negative Normal [facility] Comment on above: Performed By: #### U ACUL #### [facility] [place] [address] [place] [address] Clarity (U) CLEAR [facility] Comment on above: Performed By: #### U ACUL #### [facility] [place] [address] [place] [address] Color (U) COLORLESS [facility] Comment on above: Performed By: #### U ACUL #### [facility] [place] [address] [place] [address] GLUC Negative Normal NEG [facility] Comment on above: Performed By: #### U ACUL #### [facility] [place] [address] [place] [address] KET Negative Normal NEG [facility] Comment on above: Performed By: #### U ACUL #### [facility] [place] [address] [place] [address] LEUK Negative Normal NEG [facility] Comment on above: Performed By: #### U ACUL #### [facility] [place] [address] [place] [address] NIT Negative Normal NEG [facility] Comment on above: Performed By: #### U ACUL #### [facility] [place] [address] [address] [address] pH (U) 6.0 [pH] Normal 4.6-8.0 [facility] Comment on above: Performed By: #### U ACUL #### [facility] [place] [address] [place] [address] PROT Negative Normal NEG [facility] Comment on above: Performed By: #### U ACUL #### [facility] [place] [address] [place] [address] SP GRAV,URINE 1.005 Normal 1.005-1.030 [facility] Comment on above: Performed By: #### U ACUL #### [facility] [place] [address] [address] [place] [address] URO NORMAL Normal 0-1.0 [facility] Comment on above: Performed By: #### U ACUL #### [facility] [place] [address] [address] [place] [address] PROTHROMBIN TIMEon 9 INR Coag (PPP) [Relative time] High 0.86-1.16 [facility] Comment on above: Result Comment: 1.6 INR Theraputic Range: 2.0-3.5 Performed at [place] [address] [address] [place] [address] Performed By: #### P TB #### [facility] [place] [address] [place] [address] PT Coag (PPP) [Time] 16.6 s High 9.3-12.7 [facility] Comment on above: Performed By: #### P TB #### [facility] [place] [address] [address] [place] [address] PT Coag (PPP) [Time] COUMADIN Normal [facility] Comment on above: Performed By: #### P TB #### [facility] [place] [address] [place] [address] PROTHROMBIN TIMEon 8 INTERNATIONAL NORM RATIO 1.5 Low 2.0-3.5 [facility] Comment on above: Result Comment: INR THERAPEUTIC RANGE: GROUP A 2.0-3.0 INR GROUP B 2.5-3.5 INR GROUP A SUGGESTED INDICATIONS: PROPHYLAXIS AND TREATMENT OF VENOUS THROMBOSIS TREATMENT OF PULMONARY EMBOLISM ATRIAL FIBRILLATION GROUP B SUGGESTED INDICATIONS: MECHANICAL PROSTHETIC VALVES Performed By: #### C BCD, PT, BHCG, CMP, ETOH ####[facility] [address] [place] [address] Prothrombin time (PT) Coag time (PPP) 16.7 s High 9.0-12.4 [facility] Comment on above: Performed By: #### C BCD, PT, BHCG, CMP, ETOH ####[facility] [address] [place] [address] PROTHROMBIN TIMEon 8 INTERNATIONAL NORM RATIO 1.9 Low 2.0-3.5 [facility] Comment on above: Result Comment: INR THERAPEUTIC RANGE: GROUP A 2.0-3.0 INR GROUP B 2.5-3.5 INR GROUP A SUGGESTED INDICATIONS: PROPHYLAXIS AND TREATMENT OF VENOUS THROMBOSIS TREATMENT OF PULMONARY EMBOLISM ATRIAL FIBRILLATION GROUP B SUGGESTED INDICATIONS: MECHANICAL PROSTHETIC VALVES Performed By: #### P T ####[facility] [address] [place] [address] Prothrombin time (PT) Coag time (PPP) 20.7 s High 9.0-12.4 [facility] Comment on above: Performed By: #### P T ####[facility] [address] [place] [address] COMPREHENSIVE METABOLIC PANE Kavon 12-03-2017 Alanine aminotransferase (ALT) 53 U/L Normal 12-78 [facility] Comment on above: Performed By: #### C MP ####[facility] [address] [place] [address] Albumin 3.9 gm/dl Normal 3.1-4.5 [facility] Comment on above: Performed By: #### C MP ####[facility] [address] [place] [address] Alkaline phosphatase (ALP) 176 U/L High 45-117 [facility] Comment on above: Performed By: #### C MP ####[facility] [address] [place] [address] Bilirubin (total) 0.3 mg/dL Normal 0.2-1.0 [place] Comment on above: Performed By: #### C MP ####[facility] [address] [place] [address] Calcium 8.5 mg/dL Normal 8.5-10.5 [facility] Comment on above: Performed By: #### C MP ####[facility] [address] [place] [address] Chloride 99 mmol/L Normal 98-107 [facility] Comment on above: Performed By: #### C MP ####[facility] [address] [place] [address] CO2 28 mmol/L Normal 21-32 [facility] Comment on above: Performed By: #### C MP ####[facility] [address] [place] [address] Creatinine 0.68 mg/dL Normal 0.55-1.02 [facility] Comment on above: Performed By: #### C MP ####[facility] [address] [place] [address] EST GLOM FILT > 60 Normal [facility] Comment on above: Result Comment: Resu [...] < 15. Performed By: #### C MP ####[facility] [address] [place] [address] ESTIMATED GLOM FILT RATE > 60 Normal [facility] Comment on above: Performed By: #### C MP ####[facility] [address] [place] [address] Glucose mass conc 109 mg/dL High 65-99 [place] Comment on above: Performed By: #### C MP ####[facility] [address] [place] [address] Potassium molar conc 3.2 mmol/L Low 3.5-5.1 [facility] Comment on above: Performed By: #### C MP ####[facility] [address] [place] [address] Protein 6.9 g/dL Normal 6.4-8.2 [facility] Comment on above: Performed By: #### C MP ####[facility] [address] [place] [address] SGOT/AST 35 IU/L Normal 3-35 [facility] Comment on above: Performed By: #### C MP ####[facility] [address] [place] [address] Sodium 136 mmol/L Normal 136-145 [facility] Comment on above: Performed By: #### C MP ####[facility] [address] [place] [address] Urea nitrogen 14 mg/dL Normal 7-24 [facility] Comment on above: Performed By: #### C MP ####[facility] [address] [place] [address] PROTHROMBIN TIMEon 8 INTERNATIONAL NORM RATIO 1.7 Low 2.0-3.5 [facility] Comment on above: Result Comment: INR THERAPEUTIC RANGE: GROUP A 2.0-3.0 INR GROUP B 2.5-3.5 INR GROUP A SUGGESTED INDICATIONS: PROPHYLAXIS AND TREATMENT OF VENOUS THROMBOSIS TREATMENT OF PULMONARY EMBOLISM ATRIAL FIBRILLATION GROUP B SUGGESTED INDICATIONS: MECHANICAL PROSTHETIC VALVES Performed By: #### P T ####[facility] [address] [place] [address] Prothrombin time (PT) Coag time (PPP) 18.4 s High 9.0-12.4 [facility] Comment on above: Performed By: #### P T ####[facility] [address] [place] [address] BETA-HCG, QUANTon 12-02-2017 BETA-HCG, QUANT 4.0 mIU/mL High 1-3 [facility] Comment on above: Result Comment: INTE RPRETATION FOR : 0-3 mIU/ml=NEGATIVE 4-24 mIU/mL=BORDERLINE >25 mIU/mL=POSITIVE Performed By: #### C BCD, PT, BHCG, CMP, ETOH ####[facility] [address] [place] [address] CBC with DIFFERENTIALon 11-17 Basophils Auto #/vol (Bld) 0.1 10*3/uL Normal 0.0-0.1 [facility] Comment on above: Performed By: #### C BCD, PT, BHCG, CMP, ETOH ####[facility] [address] [place] [address] Basophils/100 WBC Auto (Bld) 0.8 % Normal 0.0-1.0 [facility] Comment on above: Performed By: #### C BCD, PT, BHCG, CMP, ETOH ####[facility] [address] [place] [address] Eosinophils 0.2 10*3/uL Normal 0.0-0.4 [facility] Comment on above: Performed By: #### C BCD, PT, BHCG, CMP, ETOH ####[facility] [address] [place] [address] Eosinophils/100 leukocytes 3.0 % Normal 1.0-4.0 [facility] Comment on above: Performed By: #### C BCD, PT, BHCG, CMP, ETOH ####[facility] [address] [place] [address] Erythrocytes (RBC) 4.21 10*6/uL Normal 4.10-5.10 [facility] Comment on above: Performed By: #### C BCD, PT, BHCG, CMP, ETOH ####[facility] [address] [place] [address] Hematocrit (HCT) 40.1 % Normal 37.0-47.0 [facility] Comment on above: Performed By: #### C BCD, PT, BHCG, CMP, ETOH ####[facility] [address] [place] [address] Hemoglobin mass conc (Bld) 32.5 pg High 27.0-31.0 [facility] Comment on above: Performed By: #### C BCD, PT, BHCG, CMP, ETOH ####[facility] [address] [place] [address] Hemoglobin mass conc (Bld) 13.7 g/dL Normal 12.0-16.0 [facility] Comment on above: Performed By: #### C BCD, PT, BHCG, CMP, ETOH ####[facility] [address]kwbql[address] [place] [address] IG # 0.0 10*3/uL Normal 0.0-0.1 [facility] Comment on above: Performed By: #### C BCD, PT, BHCG, CMP, ETOH ####[facility] Dmpneyojwo297 [place] [address] IG % 0.2 % Normal 0.0-1.0 [facility] Comment on above: Performed By: #### C BCD, PT, BHCG, CMP, ETOH ####[facility] Wdohbdgboz[address] [place] [address] Lymphocytes 1.4 10*3/uL Normal 1.3-4.4 [facility] Comment on above: Performed By: #### C BCD, PT, BHCG, CMP, ETOH ####[facility] Tvveqcmbpp917 [place] [address] Lymphocytes/100 leukocytes 24.2 % Low 27.0-41.0 [facility] Comment on above: Performed By: #### C BCD, PT, BHCG, CMP, ETOH ####[facility] Asbgzwzfdr349 [place] [address] MCH 34.2 g/dl Normal 33.0-37.0 [facility] Comment on above: Performed By: #### C BCD, PT, BHCG, CMP, ETOH ####[facility] Xvnqxfqmwb700 [place] [address] MCV 95.2 fL Normal 81.0-99.0 [facility] Comment on above: Performed By: #### C BCD, PT, BHCG, CMP, ETOH ####[facility] [address]zhgiim[address] [place] [address] Monocytes 0.3 10*3/uL Normal 0.1-1.0 [facility] Comment on above: Performed By: #### C BCD, PT, BHCG, CMP, ETOH ####[facility] Uofnstfsxy[address] [place] [address] Monocytes/100 leukocytes 5.2 % Normal 3.0-9.0 [facility] Comment on above: Performed By: #### C BCD, PT, BHCG, CMP, ETOH ####[facility] Efjxmoxora235 [place] [address] Neutrophils 4.0 10*3/uL Normal 2.3-7.9 [facility] Comment on above: Performed By: #### C BCD, PT, BHCG, CMP, ETOH ####[facility] Ylwcchshqh692 [place] [address] Neutrophils/100 WBC Auto (Bld) 66.6 % Normal 47.0-73.0 [facility] Comment on above: Performed By: #### C BCD, PT, BHCG, CMP, ETOH ####[facility] [address]ozb878 [place] [address] NUCLEATED RED BLOOD CELL 0.0 % Normal 0.0-0.0 [facility] Comment on above: Performed By: #### C BCD, PT, BHCG, CMP, ETOH ####[facility] Uwqmhvkbfq354 [place] [address] NUCLEATED RED BLOOD CELL 0.0 10*3/uL Normal 0.0-0.0 [facility] Comment on above: Performed By: #### C BCD, PT, BHCG, CMP, ETOH ####[facility] [address]xvgpr[address]oy249 [place] [address] PLATELET COUNT AUTOMATED 339 10*3/uL Normal 130-400 [facility] Comment on above: Performed By: #### C BCD, PT, BHCG, CMP, ETOH ####[facility] Wgrggjmhje083 [place] [address] Platelet mean volume (PMV) 8.5 fL Low 9.6-12.3 [facility] Comment on above: Performed By: #### C BCD, PT, BHCG, CMP, ETOH ####[facility] [address]opmwtkjiv972 [place] [address] RED CELL DISTRI WIDTH 12.2 % Normal 0-14.5 [facility] Comment on above: Performed By: #### C BCD, PT, BHCG, CMP, ETOH ####[facility] Uqggdhxovb552 [place] [address] WBC (Leukocytes) 5.9 10*3/uL Normal 4.8-10.8 [place] Comment on above: Performed By: #### C BCD, PT, BHCG, CMP, ETOH ####[facility] [address]rc[address]gwmb[address] [place] [address] COMPREHENSIVE METABOLIC PANE Kavon 12-02-2017 Alanine aminotransferase (ALT) 60 U/L Normal 12-78 [facility] Comment on above: Performed By: #### C BCD, PT, BHCG, CMP, ETOH ####[facility] Alcgxvvbbx444 [place] [address] Albumin 3.9 gm/dl Normal 3.1-4.5 [facility] Comment on above: Performed By: #### C BCD, PT, BHCG, CMP, ETOH ####[facility] Qybuiwvvxz994 [place] [address] Alkaline phosphatase (ALP) 192 U/L High 45-117 [facility] Comment on above: Performed By: #### C BCD, PT, BHCG, CMP, ETOH ####[facility] Yhoeimqboi[address] [place] [address] Bilirubin (total) 0.4 mg/dL Normal 0.2-1.0 [facility] Comment on above: Performed By: #### C BCD, PT, BHCG, CMP, ETOH ####[facility] Wyvmendzoa397 [place] [address] Calcium 8.1 mg/dL Low 8.5-10.5 [facility] Comment on above: Performed By: #### C BCD, PT, BHCG, CMP, ETOH ####[facility] Ulimkdoecu135 [place] [address] Chloride 106 mmol/L Normal 98-107 [facility] Comment on above: Performed By: #### C BCD, PT, BHCG, CMP, ETOH ####[facility] Dphv[address]hlad724 [place] [address] CO2 24 mmol/L Normal 21-32 [facility] Comment on above: Performed By: #### C BCD, PT, BHCG, CMP, ETOH ####[facility] Gjqpziilhb983 [place] [address] Creatinine 0.77 mg/dL Normal 0.55-1.02 [facility] Comment on above: Performed By: #### C BCD, PT, BHCG, CMP, ETOH ####[facility] Hskgzvumef378 [place] [address] EST GLOM FILT > 60 Normal [facility] Comment on above: Result Comment: Resu [...] #### C BCD, PT, BHCG, CMP, ETOH ####[facility] Urkzxjgvcs520 [place] [address] ESTIMATED GLOM FILT RATE > 60 Normal [facility] Comment on above: Performed By: #### C BCD, PT, BHCG, CMP, ETOH ####[facility] Eyzuduxyyo232 [place] [address] Glucose mass conc 110 mg/dL High 65-99 [place] Comment on above: Performed By: #### C BCD, PT, BHCG, CMP, ETOH ####[facility] Lugnagapuv900 [place] [address] Potassium molar conc 3.1 mmol/L Low 3.5-5.1 [facility] Comment on above: Performed By: #### C BCD, PT, BHCG, CMP, ETOH ####[facility] Pviebeuiec811 [place] [address] Protein 7.4 g/dL Normal 6.4-8.2 [facility] Comment on above: Performed By: #### C BCD, PT, BHCG, CMP, ETOH ####[facility] Xanpszdxzj491 [place] [address] SGOT/AST 21 IU/L Normal 3-35 [facility] Comment on above: Performed By: #### C BCD, PT, BHCG, CMP, ETOH ####[facility] [address]uypcjy211 [place] [address] Sodium 140 mmol/L Normal 136-145 [facility] Comment on above: Performed By: #### C BCD, PT, BHCG, CMP, ETOH ####[facility] Wyalcgyixx514 [place] [address] Urea nitrogen 12 mg/dL Normal 7-24 [facility] Comment on above: Performed By: #### C BCD, PT, BHCG, CMP, ETOH ####[facility] Lrvptsdtko859 [place] [address] ETHYL ALCOHOLon 12-02-2017 ETHYL ALCOHOL < 3.0 Normal <3 [facility] Comment on above: Performed By: #### C BCD, PT, BHCG, CMP, ETOH ####[facility] Spvenstcgt794 [place] [address] PROTHROMBIN TIMEon 8 INTERNATIONAL NORM RATIO 1.8 Low 2.0-3.5 [facility] Comment on above: Result Comment: INR THERAPEUTIC RANGE: GROUP A 2.0-3.0 INR GROUP B 2.5-3.5 INR GROUP A SUGGESTED INDICATIONS: PROPHYLAXIS AND TREATMENT OF VENOUS THROMBOSIS TREATMENT OF PULMONARY EMBOLISM ATRIAL FIBRILLATION GROUP B SUGGESTED INDICATIONS: MECHANICAL PROSTHETIC VALVES Performed By: #### C BCD, PT, BHCG, CMP, ETOH ####[facility] [address]ovdibp060 [place] [address] Prothrombin time (PT) Coag time (PPP) 19.9 s High 9.0-12.4 [facility] Comment on above: Performed By: #### C BCD, PT, BHCG, CMP, ETOH ####[facility] Xygkuupvbr999 [place] [address] URINALYSIS REFLEX TO CULTURE on 12-02-2017 Bilirubin (total) Negative Normal NEGATIVE [place] Comment on above: Performed By: #### U ARFXUC ####[facility] [address] [place] [address] BLOOD TRACE-INTACT Abnormal NEGATIVE [facility] Comment on above: Performed By: #### U ARFXUC ####[facility] [address] [place] [address] Erythrocytes (RBC) 5-10 Normal 0-2 [facility] Comment on above: Performed By: #### U ARFXUC ####[facility] [address] [place] [address] 12200 Glucose mass conc Negative Normal NEGATIVE [place] Comment on above: Performed By: #### U ARFXUC ####[facility] [address] [place] [address] HYALINE CAST 21-30 Normal [facility] Comment on above: Performed By: #### U ARFXUC ####[facility] [address] [place] [address] KETONE Negative Normal NEGATIVE [facility] Comment on above: Performed By: #### U ARFXUC ####[facility] [address] [place] [address] LEUKO ESTERASE Negative Normal NEGATIVE [facility] Comment on above: Performed By: #### U ARFXUC ####[facility] [address] [place] [address] MUCOUS 1+ Normal [facility] Comment on above: Performed By: #### U ARFXUC ####[facility] [address] [place] [address] pH of blood 5.5 [pH] Normal 5.0-9.0 [facility] Comment on above: Performed By: #### U ARFXUC ####[facility] [address] [place] [address] 31874 Protein Negative Normal NEGATIVE [facility] Comment on above: Performed By: #### U ARFXUC ####[facility] Ypm[address]pewhgd935 [place] [address] URINE REFLEX COMMENT NO Normal NO [facility] Comment on above: Performed By: #### U ARFXUC ####[facility] Mlznlbopgz613 [place] [address] Urine, bacteria in sediment 1+ Abnormal [facility] Comment on above: Performed By: #### U ARFXUC ####[facility] Nxzzwvotme631 [place] [address] Urine, clarity CLEAR Normal CLEAR [facility] Comment on above: Performed By: #### U ARFXUC ####[facility] [address] [place] [address] Urine, color YELLOW Normal YELLOW [facility] Comment on above: Performed By: #### U ARFXUC ####[facility] [address] [place] [address] Urine, epithelial cells in sediment 5-10 Normal [facility] Comment on above: Performed By: #### U ARFXUC ####[facility] [address] [place] [address] Urine, nitrite presence Negative Normal NEGATIVE [facility] Comment on above: Performed By: #### U ARFXUC ####[facility] [address] [place] [address] 34996 Urine, specific gravity 1.020 Normal 1.005-1.030 [facility] Comment on above: Performed By: #### U ARFXUC ####[facility] [address] [place] [address] Urine, urobilinogen 0.2 E.U./dl Normal 0.2-1.0 [facility] Comment on above: Performed By: #### U ARFXUC ####[facility] [address] [place] [address]89[address] WBC (Leukocytes) 2-4 Normal 0-5 [facility] Comment on above: Performed By: #### U ARFXUC ####[facility] [address]tzpz152 [place] [address] URINE DRUG SCREENon 12-03-19 18 URINE AMPHETAMINES < 1000 Normal 1000ng/ml [facility] Comment on above: Performed By: #### U DRG ####[facility] [address] [place] [address] 24822 URINE BARBITURATES > 200 Abnormal 200ng/ml [facility] Comment on above: Performed By: #### U DRG ####[facility] [address] [place] [address] 83545 URINE BENZODIAZEPINES > 200 Abnormal 200ng/ml [facility] Comment on above: Performed By: #### U DRG ####[facility] [address] [place] [address] 765[address] URINE CANNABINOIDS (THC) < 50 Normal 50ng/ml [facility] Comment on above: Performed By: #### U DRG ####[facility] [address] [place] [address]46[address] URINE COCAINE < 300 Normal 300ng/ml [facility] Comment on above: Performed By: #### U DRG ####[facility] [address] [place] [address] URINE METHADONE < 300 Normal 300ng/ml [facility] Comment on above: Performed By: #### U DRG ####[facility] [address] [place] [address]2428 URINE OPIATES < 300 Normal 300ng/ml [facility] Comment on above: Performed By: #### U DRG ####[facility] [address] [place] [address]259 Urine, pH [pH] Normal 25ng/ml [facility] Comment on above: Result Comment: pH o f the urine has been checked and is within acceptable range 5-8 [facility] of [facility] are screening results only. Confirmation and Quantitation by GC/MS can be performed byrequest at an additional charge. ANYTHING EQUAL TO OR GREATER THAN THE REFERENCE INDICATESABUSE. ( > = POSITIVE < = NEGATIVE ) Performed By: #### U DRG ####[facility] N[address]mhv[address] [place] [address] CT Chest w/ + w/o Contraston 11-15-2017 CT Chest w/ + w/o Contrast Patient Name: DOROTHEA RUTLEDGE CT Exam Date/Time 11/15/2017 05:22:[address] Chest w/ + w/o Contrast Ordering Physician MD CATHIE, JESSICA Accession Number [id number] CPT4 Codes 31265 (), Q9967 () Reason For Exam TRAUMA [...] normal. Scapula are incompletely included in the [id number], but the visualized portions show no fractures. No rib fractures are identified. Deformity of the sternum and manubrium is noted which appears chronic and is unchanged compared to a chest radiograph of 09/01/2016. There are no vertebral compression deformities identified. IMPRESSION: No acute posttraumatic abnormality is noted in the chest, with clavicles incompletely included in the [id number] Report Dictated on Workstation: [id number] Final Dictating Physician: MD AREVALO DIANE Signed Date and Time: 11/15/2017 6:26 am Signed by: MD AREVALO DIANE Transcribed Date and Time: 11/15/2017 6:28 Normal [facility] CT Head or Brain w/o Contras ton 11-15-2017 CT Head or Brain w/o Contrast Patient Name: DOROTHEA RUTLEDGE CT Exam Date/Time 11/15/2017 05:35:[address] Head or Brain w/o Contrast Ordering Physician MD BRAND RAYMUNDO Accession Number [id number] CPT4 Codes 68148 () Reason For Exam elevated INR >10, [...] Transcribed Date and Time: 11/15/2017 6:22 Normal [facility] CT Abdomen/Pelvis w/ Contras ton 10-28-2017 CT Abdomen/Pelvis w/ Contrast Patient Name: DOROTHEA RUTLEDGE CT Exam Date/Time 10/28/2017 00:39:[address] Abdomen/Pelvis w/ IV Contrast (IV Onl Ordering Physician DO CRISTINA MICHAEL J. Accession Number [id number] CPT4 Codes 64173 (CT Abdomen/Pelvis w/ IV Contrast (IV Onl), [...] residue suggesting constipation. Report Dictated on Workstation: [id number] Final Dictating Physician: MANISH MUELLER DO, I Signed Date and Time: 10/28/2017 1:31 am Signed by: MANISH MUELLER DO, I Transcribed Date and Time: 10/28/2017 1:32 Normal [facility] CULTURE URINEon 10-28-2017 CULTURE URINE Specimen Source Comment:Urine, clean catch [facility] Patient name: MATY DOROTHEA RylieNJacque: [id number] : 1975 Age: 41 Sex: F Ord. Physician: Location: [place] [address] Copy to: [facility]. Date: 10/28/17 MICROBIOLOGYORDER#: [id number] COLLECTED: 10/28/17 00:09SOURCE: Urine RECEIVED: 10/28/17 00:15 OE C O M M E N T S Spe cimen Source Comment:Urine, clean catchCULTURE URINE FINAL 10/28/17 22:Normal urogenital keron present. Normal [facility] Comment on above: Performed By: #### C /UR ####[address] [address] US Abdomen Completeon 2017 US Abdomen Complete Patient Name: DOROTHEA RUTLEDGE Ultrasound Exam Date/Time 10/27/2017 23:10:00 EST Exam US Abdomen Complete Ordering Physician DO CRISTINA MICHAEL J. Accession Number [id number] CPT4 Codes 01839 () Reason For Exam RUQ and epigastric [...] sonographic Barrett's sign was documented by the bioinformatics engineer. The pancreas is not well visualized secondary [...] Transcribed Date and Time: 10/27/2017 11:25 Normal [facility] BMPon 10-27-2017 Anion gap 12 mmol/L Normal 5-16 [facility] Comment on above: Order Comment: Campu s: M Performed By: #### L 500.05739, L500.24640, L500.17162, L500.93100 ####[facility] [id number] [place], [place] [address]Mf# [phone] BUN/Creatinine Ratio 19 mg/mg Normal 15-24 [facility] Comment on above: Order Comment: Campu s: M Performed By: #### L 500.72188, L500.71315, L500.23891, L500.11438 ####[facility] [id number] [place], [place] [address]Qf# [phone] Calcium 8.5 mg/dL Normal 8.5-10.1 [facility] Comment on above: Order Comment: Campu s: M Performed By: #### L 500.72735, L500.34005, L500.74366, L500.09005 ####[facility] [id number] [place] [address]Vu# [phone] Chloride 110 mmol/L High 98-107 [facility] Comment on above: Order Comment: Campu s: M Performed By: #### L 500.36736, L500.21401, L500.29581, L500.23571 ####[facility] [id number] [place], [place] [address]Bi# [phone] CO2 20 mmol/L Low 21-32 [facility] Comment on above: Order Comment: Campu s: M Performed By: #### L 500.96761, L500.54846, L500.56818, L500.53228 ####[facility] [id number] [place] [address]Vs# [phone] Creatinine 0.674 mg/dL Normal 0.510-0.950 [facility] Comment on above: Order Comment: Campu s: M Result Comment: Evelyn ents receiving either N-Acetylcysteine (NAC) orMetamizole prior to venipuncture, may have falsely depressedresults. Performed By: #### L 500.32957, L500.78125, L500.62719, L500.60585 ####[facility] SYASBHXMGP0135 [place], [place] [address]Ze# [phone] Glucose mass conc 120 mg/dL High 70-100 [facility] Comment on above: Order Comment: Campu s: M Result Comment: 70-1 00- Normal Fasting; 100-125 Impaired Fasting; greaterthan 126 on more than one result- Diabetes. ADA guidelines.Results may be falsely elevated after the administration ofSulfapyridine.Results may be falsely depressed after the administration ofSulfasalazine. Performed By: #### L 500.12246, L500.98565, L500.04134, L500.44392 ####[facility] [id number] [place], [place] [address]Di# [phone] Potassium molar conc 4.2 mmol/L Normal 3.5-5.1 [facility] Comment on above: Order Comment: Campu s: M Result Comment: Mode rate Hemolysis, Result may be falsely increased. Performed By: #### L 500.06624, L500.83855, L500.47848, L500.22581 ####[facility] [id number] [place], [place] [address]Ct# [phone] Sodium 142 mmol/L Normal 136-145 [facility] Comment on above: Order Comment: Campu s: M Performed By: #### L 500.34766, L500.37710, L500.56689, L500.13187 ####[facility] DUSWMPKVTZ0542 [place], [place] [address]Gm# [phone] Urea nitrogen 13 mg/dL Normal 7-26 [facility] Comment on above: Order Comment: Campu s: M Performed By: #### L 500.25119, L500.78475, L500.34239, L500.79156 ####[facility] CTMLSGFKJX6085 [place], [place] [address]Ff# [phone] CBC W/DIFFon 02-08-2018 BASO ABS 0.10 K/CU MM Normal 0-0.2 [facility] Comment on above: Order Comment: Campu s: M Performed By: #### L 200.55895 ####[facility] [id number] [place], [place] [address]Td# [phone] Basophils/100 WBC Auto (Bld) 0.8 % Normal 0-2 [facility] Comment on above: Order Comment: Campu s: M Performed By: #### L 200.85704 ####[facility] [id number] [place] [address]Ic# [phone] EOS ABS 0.30 K/CU MM Normal 0-0.5 [facility] Comment on above: Order Comment: Campu s: M Performed By: #### L 200.91746 ####[address] [address]Mp# [phone] Eosinophils/100 leukocytes 5.2 % High 0-5 [facility] Comment on above: Order Comment: Campu s: M Performed By: #### L 200.42871 ####[facility] [id number] [place] [address]Eo# [phone] Erythrocyte distribution width Auto Ratio (RBC) 12.8 % Normal 11-14.5 [facility] Comment on above: Order Comment: Campu s: M Performed By: #### L 200.47061 ####[facility] [id number] [place] [address]Nb# [phone] Erythrocytes (RBC) 0.0 % Normal Less than 1 [facility] Comment on above: Order Comment: Campu s: M Performed By: #### L 200.71256 ####[facility] [id number] [place] [address]Vq# [phone] Erythrocytes (RBC) 3.84 M/CU MM Low 3.90-5.30 [facility] Comment on above: Order Comment: Campu s: M Performed By: #### L 200.80744 ####[facility] [id number] [place], [place] [address]Gz# [phone] Hematocrit (HCT) 37.5 % Normal 35.0-47.0 [facility] Comment on above: Order Comment: Campu s: M Performed By: #### L 200.75409 ####[facility] [id number] [place] [address]Pq# [phone] Hemoglobin mass conc (Bld) 12.6 g/dL Normal 11.5-15.5 [facility] Comment on above: Order Comment: Campu s: M Performed By: #### L 200.91886 ####[place] [address]14[address]Ph# [phone] IMMATR GRAN ABS 0.00 K/CU MM Normal Less than 2 [facility] Comment on above: Order Comment: Campu s: M Performed By: #### L 200.60350 ####[place] [address]Ph# [phone] IMMATURE GRAN % 0.3 % Normal Less than 2 [facility] Comment on above: Order Comment: Campu s: M Performed By: #### L 200.70474 ####[facility] [id number] [place] [address]Lx# [phone] Lymphocytes 2.10 K/CU MM Normal 0.9-4.4 [facility] Comment on above: Order Comment: Campu s: M Performed By: #### L 200.91512 ####[facility] [id number] [place] [address]96[address]No# [phone] Lymphocytes/100 leukocytes 31.6 % Normal 20-40 [facility] Comment on above: Order Comment: Campu s: M Performed By: #### L 200.20628 ####[facility] [id number] [place] [address] 68[address]Cs# [phone] MCHC mass conc (RBC) 33.6 g/dL Normal 32.0-36.0 [facility] Comment on above: Order Comment: Campu s: M Performed By: #### L 200.64773 ####[facility] [id number] [place], [place] [address]Zj# [phone] MCV 97.7 fL Normal 80.0-99.0 [facility] Comment on above: Order Comment: Campu s: M Performed By: #### L 200.52837 ####[facility] [id number] [place], [place] [address]Ph# [phone] MONO ABS 0.40 K/CU MM Normal 0.1-1.1 [facility] Comment on above: Order Comment: Campu s: M Performed By: #### L 200.84357 ####[place] [address]Ph# [phone] Monocytes/100 leukocytes 6.4 % Normal 2-10 [facility] Comment on above: Order Comment: Campu s: M Performed By: #### L 200.46535 ####[facility] [id number] [place] [address]Oi# [phone] Neutrophils 3.70 K/CU MM Normal 2.0-8.3 [facility] Comment on above: Order Comment: Campu s: M Performed By: #### L 200.93121 ####[facility] [id number] [place], [place] [address]Ph# [phone] Neutrophils/100 WBC Auto (Bld) 55.7 % Normal 45-75 [facility] Comment on above: Order Comment: Campu s: M Performed By: #### L 200.24745 ####[facility] [id number] [place] [address]Se# [phone] Platelet mean volume (PMV) 8.6 fL Low 9.4-12.4 [facility] Comment on above: Order Comment: Campu s: M Performed By: #### L 200.75847 ####[facility] [id number] [place], [place] [address]Ph# [phone] Platelets 304 K/CU MM Normal 150-450 [facility] Comment on above: Order Comment: Campu s: M Performed By: #### L 200.51009 ####[facility] [id number] [place], [place] [address]Pu# [phone] WBC (Leukocytes) 6.6 K/CU MM Normal 4.5-11.0 [facility] Comment on above: Order Comment: Campu s: M Performed By: #### L 200.80543 ####[facility] [id number] [place], [place] [address]Sj# [phone] ED DOCon 10-27-2017 ED DOC SARITA FISCHER ASSESSMENT =======RECORDS: Discharge ReportEvent Time: 10/27/2017 00:12: FlexChartDataEvent Time: 10/27/2017 00:45Status: [facility] Maty [[id number]]Attending [id number] / F / //1975Chart (V2b)Chart created at 10/27/2017 00:00 by Peri Good closed at 10/27/2017 00:10Entry in Emergency Department at 10/26/2017 21:20Patient Name: Dorothea Rutledge Record Number: [id number]: 10/27/2017 00:00 EnteredDepartment at: 10/26/2017 21:20 Patient Seen at:10/26/2017 21:31 Historian: PatientPCP: Lona,Angie Complaint:10/20/17 pt had ERCP with sphynctoidectomy.Also states n/v, recent dx of lung mass withc/o sob.Initial Vital Signs reviewed.Temperature: 98.5 F (36.9 C). Pulse: 93. Respiratory Rate:20. Blood-pressure:125/89. Oxygen Saturation: 97%.History of Present Illness:[place] [facility]. Chief complaintsabdominal pain and shortness of breath. [facility] PATIENT NAME: DOROTHEA RUTLEDGE M[address] [facility] [address] Pearce MEDICAL REC #: [id number], [place] [address] DEPARTMENT CHART EMERGENCY DEPARTMENT PHYSICIANPatient is a 41-year-old female. She has a history offactor V Leiden. She states [facility]s [facility]. She actually lives in [place]. 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 Shehad a sphincterotomy as well. She did [...] PAMAX(EYE LIDS TWICH)Social History: Reviewed RN Note. [facility]IENT NAME: DOROTHEA RUTLEDGE Lisa Pearce MEDICAL REC #: [id number], [place] [address] DEPARTMENT CHART EMERGENCY DEPARTMENT PHYSICIANFamily History: Reviewed [...] SecondsLIPASE, information as of 10/26/2017, 9:47 pm [facility] PATIENT NAME: DOROTHEA RUTLEDGE M[address] [facility] [address] Pearce MEDICAL REC #: [id number], [place] [address] DEPARTMENT CHART EMERGENCY DEPARTMENT PHYSICIANLIPASE: 74 U/LLIVER, [...] access was obtained. She was placed on monitor tech.Shes been in normal sinus rhythm. EKG wasobtained. It is unchanged from her prior. CT chest wasnegative for any blood clots. It did show a fewsubcentimeter pulmonary nodules. She is aware of these. She [facility] PATIENT NAME: DOROTHEA RUTLEDGE M[address] [facility] [address] Pearce MEDICAL REC #: [id number], [place] [address] DEPARTMENT CHART EMERGENCY DEPARTMENT PHYSICIANactually discussed him [...] report reviewed (not applicable for EMT squads).. [facility] PATIENT NAME: ODROTHEA RUTLEDGE M[address] [facility] [address] Pearce MEDICAL REC #: [id number], [place] [address] DEPARTMENT CHART EMERGENCY DEPARTMENT PHYSICIANMSE completed.I was [...] get your prescriptions filled.EKG and Radiology Results:A supervisor grading or radiologist will review any EKG orradiology results provided by the ER doctor. We willcontact you if the results in the final EKG or radiology [facility] PATIENT NAME: DOROTHEA RUTLEDGE M[address] [facility] [address] Pearce MEDICAL REC #: [id number], [place] [address] DEPARTMENT CHART EMERGENCY DEPARTMENT PHYSICIANreports require a [...] will be kept in my medical record. [facility] PATIENT NAME: DOROTHEA RUTLEDGE M[address] [facility] [address] Pearce MEDICAL REC #: [id number], [place] [address] DEPARTMENT CHART EMERGENCY DEPARTMENT PHYSICIANYour signature below indicates consent for Case Managementto contact [facility] providers in [facility] to meet your ongoing healthcare needs. This willallow forcontinuity of care once you leave theEmergency Department. This exchange of informationwillinclude, but not be limited to, disclosure of yourpatient information and possible release of records. :FlexChartDataEvent Time: 10/27/2017 00:45 ==DEMOGRAPHICS========= Emergisoft Patient: DOROTHEA RUTLEDGESex: FDOB: 1975Age: 41 yrAccount No: [id number]: [id number] Date: 21:20 10/26/2017Address: [address]Address: [place] [address] ==REGISTRATION========= ED Number: [id number]: Marital Status: XFinancial Class: MPPS =TRIAGE ====Priority: 3 - UrgentComplaint: Abdominal PainComplaint: Nausea and VomitingStated Complaint: 10/20/17 pt had ERCP withsphincterectomy. Also states n/v, recent dx of lung masswith c/o sob.Arrival Date: 10/26/2017 21:20Triage Date: 10/26/2017 21:23Mode of Arrival: AmbulanceTransfer From: *Public BuildingWC: NLanguage: Liberian [facility] PATIENT NAME: [facility]HE[facility]UTLEDGE [facility] [facility] REC #: [id number], [place] [address] DEPARTMENT CHART EMERGENCY DEPARTMENT PHYSICIANTransport: [place] [facility] =BED =C30 In: 10/26/2017 21:30:31 10/26/201721:30:31 UYB1C74 (Removed From) Out: 10/27/2017 00:55:11010/27/2017 00:55:11 MMR2 =PROVIDERS =======Emergency Medical Service Provider Contact:10/26/2017 21:23:23 EMSEnd:Eugenia Arroyo Provider Contact: 10/26/201721:30:42 BOF7Cer:MD Peri Breaux Provider Contact: 10/26/201721:31:18 MFFEnd: ====TRIAGE HISTORY ====ALLERGIESAllergic To: Penicillins - Rash 10/26/2017 21:30 CGD8Cciungvz To: Morphine - *N/A 10/26/2017 21:30 QBZ6Ppdjoecd To: neurontin - neurontin 10/26/2017 21:96VOC3OBHOYQH MEDSName: atorvastatin 20 mg po daily hs 10/27/2017 00:76QAI5Ggyu: COUMADIN 3.5 MG TABLET - PO daily 10/27/201700:23 MMR2 [facility] PATIENT NAME: DOROTHEA RUTLEDGE M[address] Lisa [address]ce MEDICAL REC #: [id number], [place] [address] DEPARTMENT CHART EMERGENCY DEPARTMENT PHYSICIANName: TOPAMAX 25MG TABLET - PO bid 10/27/2017 00:23 GYB9Uxup: KLONOPIN 0.5MG TABLET - PO bid and 1mg HS10/27/2017 00:23 JHU5Itnh: LASIX 40MG TABLET - PO daily 10/27/2017 00:23 OQL1Vvhk: POTASSIUM CHLORIDE 20MEQ EXTENDED-RELEASE TABLET- PO daily 10/27/2017 00:23 DUG3Sjre: VALTREX 500MG TABLET - PO daily 10/27/2017 00:79ODG2Fvto: EFFEXOR 225MG TABLET - PO daily 10/27/2017 00:13VSR0Iohq: risperdone 0.25mg po tab bid and 0.5 hs10/27/2017 00:23 VFX3Bobp: REQUIP 0.25MG TABLET - PO bid and 0.5 HS10/27/2017 00:23 NWX7Epqf: fiorcet unk dose q4h prn 10/27/2017 00:23 VOT6Kroz: IMITREX 50MG TABLET - PO prn 10/27/2017 00:84YAA9Jchg: PHENERGAN 25MG - PO prn 10/27/2017 00:23 LQL9Nwtm: 10/27/17 10/27/2017 00:23 WLD0CUAJGKJTwdycbn: Other Medical IVC Clot10/26/2017 21:30 JZD6Fixeaxy: Other Medical DVT 10/26/2017 21:30 CDY0Rykmpyx: Other Medical CVA WITH HEMMORHAGE 10/26/201721:30 GLK7Jodisrk: Other Medical PES 10/26/2017 21:30 CRW8Pqbemkq: Migraines 10/26/2017 21:30 OXE3Cuvxtem: factor 5 deffinciency 10/26/2017 21:30 MMR2 [facility] PATIENT NAME: DOROTHEA RUTLEDGE M[address] Lisa [address]ce MEDICAL REC #: [id number], [place] [address] DEPARTMENT CHART EMERGENCY DEPARTMENT PHYSICIANPAST SURGERY HISTSurgery: x2 10/26/2017 21:30 EKM1Ghjgjpv: Hysterectomy-complete 10/26/2017 21:30 DFI1Usbiagn: Cholecystectomy 10/26/2017 21:30 SKV2Dvuquxw: right axillae bx 10/26/2017 21:30 IPG8Qpaxqlu: green filter 10/26/2017 21:30 IEF0Jbgmipx: Appendectomy 10/26/2017 21:30 JDP9Tpatqel: ERCP x 2 10/26/2017 21:30 HUE2Srkogwi: Bile Duct repair 10/26/2017 21:30 CPS6NOWN SOCIAL HISTSocial History: Lives with family or significant other10/26/2017 21:30 SPQ7Syfygg History: Alcohol - None 10/26/2017 21:30 ECV0Zxoywq History: Recreational Drugs - None 10/26/201721:30 DGP9Bjcqzt History: Smoker-1 PPD 10/26/2017 21:53VCT3Utwmpf History: Denies Domestic Violence 10/26/201721:30 OQF5Hjlygd History: Denies thoughts of self harm.10/26/2017 21:30 EUK7Eqqltk History: Have you traveled in the past month?Where NO 10/26/2017 21:30 JOD3NBVR 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 10/26/2017 22:22 SLF196 22:22 Patient Interaction - Name Band on Pt10/26/2017 22:22 NFX259 22:22 Staff/ Patient Interaction - Calllight placed within reach. 10/26/2017 22:22 TKX351 22:22 Staff/ Patient Interaction -Introduced self and assessed patients needs. 10/26/201722:22 HVU406 22:22 Cardiac - monitor tech initiated.10/26/2017 22:22 MMR2 [facility] PATIENT NAME: DOROTHEA RUTLEDGE M[address] Lisa Pearce MEDICAL REC #: [id number], [place] [address] DEPARTMENT CHART EMERGENCY DEPARTMENT KCUZGTYGM98/07/2018 22:22 Cardiac - Cardiac monitorinterpretation nsr .10/26/2017 22:22 FLG126 22:22 Cardiac - Continuous Pulse Oximeterapplied. 10/26/2017 22:22 HDV363 23:27 Hourly Rounding - Rounding 10/26/201723:28 CXE1Owcgcystjnx/Toileti ng NPain 7Position Comfortable YSafe Environment YAssessment Note Dr. Breaxu notified.Fall Risk Change N010/26/2017 23:41 Primary DOC Guide - A. Patient Zrgyqwq0910/26/2017 23:42 LIK4Vlbkmcb History Source PatientAvian Exposure - Been exposed [...] B. Fall RiskAssessment (Age andlt;65) 10/26/2017 23:42 FGT1Dmkw Risk Score 1-2 Points = Low Risk. 3-4 Points =Moderate Risk. 5 or more points = High Risk. 0Fall Score Greater andgt;= 3? No10/26/2017 23:42 Primary DOC Guide - D. PsychosocialAssessment 10/26/2017 23:42 YDP5Lzog the Last 2 weeks, how often have you had littleinterest or pleasure in doing things (0) Not at AllIs Psychosocial Assessment Score 3 or more? If score is3 or more please consult ED Navigator! NoTotal Psychosocial Assessment Score 0Over the last 2 weeks, how often have you been feelingdown, depressed or hopeless (0) Not at All [facility] PATIENT NAME: DOROTHEA RUTLEDGE M[address] [facility] [address] Pearce MEDICAL REC #: [id number], [place] [address] DEPARTMENT CHART EMERGENCY DEPARTMENT YCEIFTNON61/07/2018 23:42 Primary DOC Guide - E. Family ViolenceAssessment 10/26/2017 23:42 MMR2Do you feel safe and well cared for: Yes10/27/2017 00:44 Hourly Rounding - Rounding 10/27/201700:44 CXK1Lpwjmeuvtee/Toileti ng NPain 5Position Comfortable YSafe Environment YFall Risk Change N010/27/2017 00:54 Admit/Discharge - Discharge infomationreviewed with pt 10/27/2017 00:54 UWX665 00:54 Admit/Discharge - Ambulated withsteady gait home 10/27/2017 00:54 FTO8Oumzy: with her friend to take her home =MEDICATIONS ======IV =====IV Fluid: B 10/26/2017 21:56 10/26/2017 21:90JWG6Pxpv #: 1 Fluid: Saline LockRate: ml/hr Location: wrist rightNdl Gauge: 20 # Attempts: 1Notes: No s/s of infiltration. Flushes well andaspirates blood.IV Fluid: E 10/26/2017 23:40 10/26/2017 23:34XJQ2Xwdn #: 1 Rate: ml/hr Location: wrist rightNdl Gauge: 20 # Attempts: 1Notes: IV infiltrated during ct scan. Dressing applied.IV tip intact.IV Fluid: B 10/26/2017 22:21 10/26/2017 22:51JEB1Tgln #: 2 Fluid: Saline LockRate: ml/hr Location: antecubital fossa rightNdl Gauge: 20 # Attempts: 1 [facility] PATIENT NAME: DOROTHEA RUTLEDGE M[address] [facility] [address] Pearce MEDICAL REC #: [id number], [place] [address] DEPARTMENT CHART EMERGENCY DEPARTMENT PHYSICIANNotes: No s/s of infiltration. Flushes well andaspirates blood.IV Fluid: E 10/26/2017 23:37 10/26/2017 23:99IPF0Ybyf #: 2 Rate: ml/hr Location: antecubitalfossa rightNdl Gauge: 20 # Attempts: 1Notes: IV site infiltrated during CT scan. Iv tipintact. Dressing applied.IV Fluid: B 10/26/2017 23:40 10/26/2017 23:69FDN3Wdbl #: 3 Fluid: Saline LockRate: ml/hr Location: arm rightNdl Gauge: 20 Notes: Started in CT scan. Flusheswell.IV Fluid: E 10/27/2017 00:40 10/27/2017 00:99ZCK4Vhcs #: 3 Rate: ml/hr Location: arm rightNdl Gauge: 20 Notes: IV tip intact. Dressingapplied. No s/s of infiltration. I AND O VITAL S VS -ROUTINE Time: 10/26/2017 21:23B/P: 125/89 - Left Upper Arm - Lying - Machine Pulse:93 - Monitor Resp: 20Sa02: 97 Room Air Temp: 98.50 F - Oral10/26/2017 21:30 YXD5LH-Zqew Time: 10/26/2017 21:23 Pain Level: 7010/26/2017 21:30 WWK8IN-QEB Time: 10/26/2017 21:23 Visual: 4 Verbal: 5 Motor:6 GCS Total: 15 10/26/2017 21:30 MRQ8NN-XQ/WT Time: 10/26/2017 21:23 Ht: 162.5 cm StatedWeight: 81.7 kg Stated 10/26/2017 21:30 OID5YY-Ebsyft Time: 10/26/2017 21:23 10/26/2017 21:30 BNO9GG-XXJ Time: 10/26/2017 21:23 10/26/2017 21:18UDE9IE-Oudzs Time: 10/26/2017 21:23 map 104 10/26/201721:30 MMR2 [facility] PATIENT NAME: DOROTHEA RUTLEDGE [address] Pearce [facility] REC #: [id number], [place] [address] DEPARTMENT CHART EMERGENCY DEPARTMENT PHYSICIANVS-ROUTINE Time: 10/26/2017 23:26B/P: 110/66 - Left Upper Arm - Lying - Machine Pulse:81 - Monitor Resp: 18Sa02: 98 Room Air 10/26/2017 23:26 BAP4XN-Pmkk Time: 10/26/2017 23:26 Pain Level: 7010/26/2017 23:26 PFR6ZO-RJP Time: 10/26/2017 23:26 10/26/2017 23:26 UGK8VU-SN/WT Time: 10/26/2017 23:26 10/26/2017 23:26 CPN1RL-Fceqaz Time: 10/26/2017 23:26 10/26/2017 23:26 UJE1LL-ZRI Time: 10/26/2017 23:26 10/26/2017 23:63UQN6AA-Hmrfi Time: 10/26/2017 23:26 MAP 81 10/26/201723:26 MBN8JR-TQBYGIZ Time: 10/27/2017 00:42B/P: 110/68 - Left Upper Arm - Lying - Machine Pulse:75 - Monitor Resp: 16Sa02: 96 Room Air 10/27/2017 00:44 VUQ8RH-Uofc Time: 10/27/2017 00:42 Pain Level: 00:44 FII4EH-ZHI Time: 10/27/2017 00:42 10/27/2017 00:44 JCV4YZ-ZB/WT Time: 10/27/2017 00:42 10/27/2017 00:44 QQU5EH-Hygxca Time: 10/27/2017 00:42 10/27/2017 00:44 KWP9GR-SJT Time: 10/27/2017 00:42 10/27/2017 00:89NJH7XA-Kxwoi Time: 10/27/2017 00:42 MAP 84 10/27/201700:44 MMR2 =ORDERS ====Discharge patient 10/27/2017 00:13N/AOrdered: 10/27/2017 00:11 By . OtherReviewed: 10/27/2017 00:13 By . OtherCoumadin (PO)(1mg) DOSE: 5 mgPO 10/27/2017 00:40N/AOrdered: 10/26/2017 23:46 By Peri Marrero Time: 10/27/2017 00:40 By Peri Bueno Time: 10/26/2017 23:48 DFP6Zcfqszww (IV)*(2mg/ml) DOSE: 1 mgIV 10/27/2017 00:17 [facility] NAME: DOROTHEA RUTLEDGE M[address] Lisa Pearce MEDICAL REC #: [id number], [place] [address] DEPARTMENT CHART EMERGENCY DEPARTMENT PHYSICIANN/AOrdered: 10/26/2017 23:46 By Peri Marrero Time: 10/27/2017 00:17 By Peri Bueno Time: 10/26/2017 23:48 HPJ4Pykqoroqt (IVPB)(12.5mg/50ml NS) DOSE: 12.5 mgIV 10/27/201700:17N/AOrder ed: 10/26/2017 23:46 By Peri Stewardleted Time: 10/27/2017 00:17 By Peri JoeosNoted Time: 10/26/2017 23:48 AOP2KVGQLH ORDER: LIPA 10/26/2017 22:24NoneOrdered: 10/26/2017 22:23 Completed [...] chest with con for PE 10/26/2017 23:19N/A *[facility] PATIENT NAME: [facility] MEDICAL REC #: [id number], [place] [address] DEPARTMENT CHART EMERGENCY DEPARTMENT PHYSICIANOrdered: 10/26/2017 21:57 By Peri Pierceompleted Time: 10/26/2017 23:19 By Peri Wymandication: sob, history of PENoted Time: 10/26/2017 23:03Question: Are you or think you might be ?Answer: NOQuestion: Patient has history of true RCM allergy?Answer: NOLab: Add On Test (excluding POC tests) 10/26/201722:03N/AOrder ed: 10/26/2017 21:57 By Prei Bueno Time: 10/26/2017 22:03 CCD5Zbgwqjkb: Test to be added:Answer: liver function tests, [...] 10/26/2017 22:09 By ProtocolNoted Time: 10/26/2017 21:50 CNO4Loconps Time: 10/26/2017 22:08BMP 10/26/2017 22:23N/AOrdered: 10/26/2017 21:31 By Protocol *[facility] PATIENT NAME: DOROTHEA RUTLEDGE M[address] [facility] [address] Pearce MEDICAL REC #: [id number], [place] [address] DEPARTMENT CHART EMERGENCY DEPARTMENT PHYSICIANCompleted Time: 10/26/2017 22:23 By ProtocolNoted Time: 10/26/2017 21:50 OQB5Cycwhgy Time: 10/26/2017 22:23CBC with diff 10/26/2017 22:03N/AOrdered: 10/26/2017 21:31 By ProtocolCompleted Time: 10/26/2017 22:03 By ProtocolNoted Time: 10/26/2017 21:50 QHZ7Hcvstii Time: 10/26/2017 22:03EKG and most recent EKG 10/26/2017 21:42N/AOrdered: 10/26/2017 21:31 By ProtocolCompleted Time: 10/26/2017 21:41 By ProtocolNoted Time: 10/26/2017 21:32 RJRO2 by cannula at 2L if SAT andlt;= 91% 10/26/2017 21:33N/AOrdered: 10/26/2017 21:31 By ProtocolNoted Time: 10/26/2017 21:33 NZE4DPI troponin 10/26/2017 21:51N/AOrdered: 10/26/2017 21:31 By ProtocolNoted Time: 10/26/2017 21:50 MMR2 =DISCHARGE =======Diagnosis: slightly elevated liver function testswith history of same, subtherapeutic INR of 1.2, pulmonarynodule seen on CT, known to patient 10/27/2017 00:12Disposition: Time: 10/27/2017 00:11By: Peri Rodas Time: 10/27/2017 00:55Type: DischargeCondition: Stable for admission/discharge/tra nsferafter emergency evaluation/treatment Category: *NOTAPPLICABLEConcurred : 10/27/2017 00:13 Referral:10/27/2017 00:12 ==PRESCRIPTIONS======== [facility] PATIENT NAME: DOROTHEA RUTLEDGE M[address] Lisa Pearce MEDICAL REC #: [id number], [place] [address] DEPARTMENT CHART EMERGENCY DEPARTMENT PHYSICIAN ======CHARGES =======SIGNATURE======= Peri Mike [facility] ANTHONYCANYON RIDGE HOSPITALrichmond Arroyo MMR2 [facility] PATIENT NAME: DOROTHEA RUTLEDGE M13[address] Lisa Pearce MEDICAL REC #: [id number], [place] [address] DEPARTMENT CHART EMERGENCY DEPARTMENT PHYSICIAN [facility] ED Documentation This is a preliminar y report only, as the practitioner review and authentication has not occurred. [facility] EKGon 10-27-2017 EKG Procedure Date and Time: [...] Confirmed By:Valerie MO M.D.FACC ___ MiguelDDandT: 10/26/17 2132TDandT:[facility] PATIENT NAME: [facility]HE[facility]LEDGE [facility] MEDICAL REC #: [id number], [place] [address] DATE:DISCHARGE DATE: 10/27/17ATTENDING PHY: Peri Breaux MDELECTROCARDIOGRAM REPORTCLBcc:[facility] PATIENT NAME: DOR[facility]HE[facility]UTLEDGE [facility] MEDICAL REC #: [id number], [place] [address] DATE:DISCHARGE DATE: 10/27/17ATTENDING PHY: Peri Breaux MDELECTROCARDIOGRAM REPORT Normal [facility] ELECTROCARDIOGRAM REPORT [facility] 10[facility]27[facility]2017 IF AMER Greater than 60 Normal [facility] Comment on above: Order Comment: Óscar s: M Performed By: #### L 500.96301, L500.15274, L500.85795, L500.06736 ####[facility] [id number] [place], [place] [address]Gf# [phone] IF non-AFR AMER Greater than 60 Normal [facility] Comment on above: Order Comment: Óscar s: M Performed By: #### L 500.43595, L500.01294, L500.44632, L500.40588 ####[facility] [id number] [place], [place] [address]Zp# [phone] LIPASEon 10-27-2017 Lipase 74 U/L Normal 73-393 [facility] Comment on above: Order Comment: Campu s: M Performed By: #### L 500.87773, L500.47476, L500.19847, L500.98823 ####[facility] [id number] [place], [place] [address]Aw# [phone] LIVERon 10-27-2017 Alanine aminotransferase (ALT) 173 U/L High 13-61 [facility] Comment on above: Order Comment: Campu s: M Result Comment: RESU LTS MAY BE FALSELY DEPRESSED AFTER THE ADMINISTRATION OFSULFASALAZINE AND/OR SULFAPYRIDINE. Performed By: #### L 500.33595, L500.63786, L500.89637, L500.41081 ####[facility] [id number] [place], [place] [address]Fg# [phone] Albumin 3.7 g/dL Normal 3.2-5.0 [facility] Comment on above: Order Comment: Campu s: M Performed By: #### L 500.72465, L500.40205, L500.54529, L500.40166 ####[facility] [id number] [place], [place] [address]Hh# [phone] Albumin/Globulin Ratio 1.1 {ratio} Normal 0.8-2.0 [facility] Comment on above: Order Comment: Campu s: M Performed By: #### L 500.52770, L500.06326, L500.58341, L500.11915 ####[facility] [id number] [place], [place] [address]My# [phone] ALK PHOS 186 U/L High 45-117 [facility] Comment on above: Order Comment: Campu s: M Performed By: #### L 500.21547, L500.53278, L500.45622, L500.57849 ####[facility] [id number] [place], [place] [address]Jq# [phone] BILI DIRECT 0.05 MG/DL Normal 0.00-0.20 [facility] Comment on above: Order Comment: Campu s: M Performed By: #### L 500.53168, L500.71668, L500.61546, L500.21003 ####[facility] [id number] [place], [place] [address]Lp# [phone] BILI TOTAL 0.2 MG/DL Normal 0.2-1.0 [facility] Comment on above: Order Comment: Campu s: M Performed By: #### L 500.79691, L500.24650, L500.56828, L500.19265 ####[facility] [id number] [place] [address]Cj# [phone] Globulin 3.5 g/dL Normal 2.2-4.2 [facility] Comment on above: Order Comment: Campu s: M Performed By: #### L 500.17581, L500.74145, L500.20908, L500.10676 ####[facility] [id number] [place] [address]Sb# [phone] Protein 7.2 g/dL Normal 6.0-8.5 [facility] Comment on above: Order Comment: Campu s: M Performed By: #### L 500.90822, L500.03423, L500.62467, L500.44016 ####[facility] [id number] [place] [address]Su# [phone] SGOT (AST) 54 U/L High 8-34 [facility] Comment on above: Order Comment: Campu s: M Result Comment: Mode rate Hemolysis, Result may be falsely increased.RESULTS MAY BE FALSELY DEPRESSED AFTER THE ADMINISTRATION OFSULFASALAZINE AND/OR SULFAPYRIDINE. Performed By: #### L 500.93825, L500.10114, L500.71881, L500.03632 ####[facility] [id number] [place], [place] [address]Wb# [phone] PTon 10-27-2017 INR Coag RelTime (PPP) 1.2 {INR} High 0.9-1.1 [facility] Comment on above: Order Comment: Ramirezu s: M Result Comment: Sony mmended PT INR therapeutic range for termite inspector andprophylactic therapy is 2.0 - 3.0. For heart valve andshunt patients the range is 2.5 - 3.5. Performed By: #### L 300.86360 ####[facility] [id number] [place], [place] [address]Vu# [phone] PTS 13.1 SECONDS High 9.4-12.0 [facility] Gamaliel Comment on above: Order Comment: Óscar s: M Performed By: #### L 300.22887 ####[facility] [id number] [place], [place] [address]Pl# [phone] TROPONIN I POCon 10-27-2017 Troponin I.cardiac mass conc 0.00 ng/mL Normal 0.0-0.06 [facility] Comment on above: Result Comment: 0.0 [...] HILLIARD M.D. Signed By: JONNIE HILLIARD M.D. [facility] CT ANG THOR W/POST PROCon CT ANG [...] HILLIARD M.D. Signed By: JONNIE HILLIARD M.D. [facility] Auto Diffon 10-10-2017 Basophils Auto #/vol (Bld) 0.1 E3/mcL Normal 0.0-0.2 [facility] Comment on above: Order Comment: Order Added by Discern Expert. Performed By: #### [id number] ####[facility] Urinalysis Automated [address] [address] Basophils/100 WBC Auto (Bld) 1.2 % Normal 0.0-2.0 [facility] Comment on above: Order Comment: Order Added by Discern Expert. Performed By: #### [id number] ####[facility]inalysis Automated [id number] [place] [address] Eos Absolute 0.3 E3/mcL Normal 0.0-0.7 [facility] Comment on above: Order Comment: Order Added by Discern Expert. Performed By: #### [id number] ####[facility] Urinalysis Automated [id number] [place], [place] [id number] Eosinophils/100 leukocytes 6.0 % Normal 0.0-11.0 [facility] Comment on above: Order Comment: Order Added by Discern Expert. Performed By: #### 8 [id number] ####BELKIS Urinalysis Automated [address] [place] [address] Lymphocytes 1.6 E3/mcL Normal 1.2-3.4 [facility] Comment on above: Order Comment: Order Added by Discern Expert. Performed By: #### 8 [id number] ####BELKIS Urinalysis Automated Vo[address]afzir[address] [place] [address] Lymphocytes/100 leukocytes 28.4 % Normal 20.0-55.0 [facility] Comment on above: Order Comment: Order Added by Discern Expert. Performed By: #### 8 [id number] ####BELKIS Urinalysis Automated Grdqnucdyo[address] [place] [address] [place] Absolute 0.4 E3/mcL Normal 0.0-0.7 [facility] Comment on above: Order Comment: Order Added by Discern Expert. Performed By: #### 8 [id number] ####BELKIS Urinalysis Automated Us[address]bmvrap[address] [place] [address] Monocytes/100 leukocytes 7.5 % Normal 0.0-10.0 [facility] Comment on above: Order Comment: Order Added by Discern Expert. Performed By: #### 8 [id number] ####BELKIS Urinalysis Automated Ywitsg[address] [place], [place] [id number] Neutro Absolute 3.2 E3/mcL Normal 1.4-6.5 [facility] Comment on above: Order Comment: Order Added by Discern Expert. Performed By: #### 8 [id number] ####BELKIS Urinalysis Automated Nwlrhihvjq9877 [place] [address] Neutro Auto 56.9 % Normal 37.0-75.0 [facility] Comment on above: Order Comment: Order Added by Discern Expert. Performed By: #### 8 [id number] ####BELKIS Urinalysis Automated Tkxlzjqims7290 [place] [address] BMPon 10-10-2017 BUN/Creatinine Ratio 23.3 ratio Normal 5.4-30.0 [facility] Comment on above: Performed By: #### 8 [id number] ####BELKIS Urinalysis Automated [address]bbrvdczc[address] [place] [address] Creatinine 0.6 mg/dL Normal 0.6-1.3 [facility] Comment on above: Performed By: #### 8 [id number] ####BELKIS Urinalysis Automated Zfzadrqgmq3164[address] [place] [address] Urea nitrogen 14 mg/dL Normal 7-18 [facility] Comment on above: Performed By: #### 8 [id number] ####BELKIS Urinalysis Automated Nqpvzbrejv[address] [place] [address] Calcium 9.0 mg/dL Normal 8.4-10.2 [facility] Comment on above: Performed By: #### 8 [id number] ####BELKIS Urinalysis Automated Ujcbwgslny4[address] [place] [address] Chloride 111 mmol/L High 98-107 [facility] Comment on above: Performed By: #### 8 [id number] ####BELKIS Urinalysis Automated Qrvlgdtyms7662 [place] [address] CO2 22.9 mmol/L Low 24.0-30.0 [facility] Comment on above: Performed By: #### 8 [id number] ####BELKIS Urinalysis Automated Osebnbdffu8912 [place] [address] Glucose mass conc 95 mg/dL Normal 70-99 [facility] Comment on above: Performed By: #### 8 [id number] ####BELKIS Urinalysis Automated Ohunfbbesh262[address] [place] [address] Potassium molar conc 4.3 mmol/L Normal 3.5-5.1 [facility] Comment on above: Performed By: #### 8 [id number] ####BELKIS Urinalysis Automated Jcfmsfibxq3147 [place] [address] Sodium 140 mmol/L Normal 136-145 [facility] Comment on above: Performed By: #### 8 [id number] ####BELKIS Urinalysis Automated Rdlofulyuu2858 [place] [address] CBC w/ Auto Diffon 8 Erythrocyte distribution width Auto Ratio (RBC) 13.3 % Normal 11.5-14.5 [facility] Comment on above: Performed By: #### 8 [id number] ####BELKIS Urinalysis Automated Vplkwjhkho5824[address] [place] [address] Erythrocytes (RBC) 3.96 E6/mcL Normal 3.90-5.40 [facility] Comment on above: Performed By: #### 8 [id number] ####BELKIS Urinalysis Automated Orarfouxge9596[address] [place] [address] Hematocrit (HCT) 38.8 % Normal 36.0-48.0 [facility] Comment on above: Performed By: #### 8 [id number] ####BELKIS Urinalysis Automated Bmmpsjvrtb[address] [place], [place] [address] Hemoglobin mass conc (Bld) 13.2 g/dL Normal 12.0-16.0 [facility] Comment on above: Performed By: #### 8 [id number] ####BELKIS Urinalysis Automated Qxqcrirhdg86[address] [place] [address] MCH 33.3 pg High 27.0-31.0 [facility] Comment on above: Performed By: #### 8 [id number] ####BELKIS Urinalysis Automated [address]utmc[address] [place] [address] MCHC mass conc (RBC) 34.0 g/dL Normal 33.0-37.0 [facility] Comment on above: Performed By: #### 8 [id number] ####BELKIS Urinalysis Automated Xhpbwjolnc[address] [place], [place] [address] MCV 97.8 fL Normal 78.0-100.0 [facility] Comment on above: Performed By: #### 8 [id number] ####BELKIS Urinalysis Automated Hipgcpzatj9768[address] [place] [address] Platelet mean volume (PMV) 6.7 fL Low 7.4-11.0 [facility] Comment on above: Performed By: #### 8 [id number] ####BELKIS Urinalysis Automated Vzoeihbhdl[address] [place] [address] Platelets 267 E3/mcL Normal 130-400 [facility] Comment on above: Performed By: #### 8 [id number] ####BELKIS Urinalysis Automated Lobkzjhavt3985[address] [place] [address] WBC (Leukocytes) 5.7 E3/mcL Normal 3.6-11.0 [facility] Comment on above: Performed By: #### 8 [id number] ####BELKIS Urinalysis Automated Cbrcjwjuiw3095[address] [place] [address] Hep Func Panelon 10-10-2017 Alanine aminotransferase (ALT) 125 Int._Unit/L High 10-40 [facility] Comment on above: Performed By: #### 8 [id number] ####BELKIS Urinalysis Automated Ncugrmuvkk619[address] [place] [address] Albumin 3.6 g/dL Normal 3.2-5.0 [facility] Comment on above: Performed By: #### 8 [id number] ####BELKIS Urinalysis Automated Vgtrfhmcrs[address]16[address] [place] [address] Albumin/Globulin Ratio 1.4 {ratio} Normal 1.1-1.9 [facility] Comment on above: Performed By: #### 8 [id number] ####BELKIS Urinalysis Automated Ikruwsoeks2954[address] [place] [address] Alk Phos 97 Int._Unit/L Normal 42-121 [facility] Comment on above: Performed By: #### 8 [id number] ####BELKIS Urinalysis Automated Djqpfdmulr3967[address] [place], [place] [address] Aspartate aminotransferase (AST) 61 Int._Unit/L High 10-42 [facility] Comment on above: Performed By: #### 8 [id number] ####BELKIS Urinalysis Automated Znmkyyfghf[address]69[address] [place] [address] Bili Direct <.10 Normal .00-.20 [facility] Comment on above: Performed By: #### 8 [id number] ####BELKIS Urinalysis Automated Aetqdghzyj0933 [place] [address] Bili Indirect >0.2 Normal [facility] Comment on above: Result Comment: No e stablished ranges available for the Indirect Biliruben. Performed By: #### 8 [id number] ####BELKIS Urinalysis Automated Jpjvztdlek4862 [place] [address] Bili Total 0.3 mg/dL Normal 0.2-1.0 [facility] Comment on above: Performed By: #### 8 [id number] ####BELKIS Urinalysis Automated [address]wrgoihxtc[address] [place] [address] Globulin 2.6 g/dL Normal 2.0-4.0 [facility] Comment on above: Performed By: #### 8 [id number] ####BELKIS Urinalysis Automated Qft[address]cgdyj[address] [place] [address] Protein 6.2 g/dL Low 6.4-8.3 [facility] Comment on above: Performed By: #### 8 9006896 ####BELKIS Urinalysis Automated [address] [place] [address] Lipase Levelon 10-10-2017 Lipase Lvl 20 U/L Normal 8-57 [facility] Comment on above: Performed By: #### 2 [id number] ####BELKIS Hematology Automated I[address]klshkpv[address] [place] [address] PTon 10-10-2017 INR Coag RelTime (PPP) 4.2 {INR} Critically abnormal 1.0-1.2 [facility] Comment on above: Result Comment: Crit ical Result INR:4.2 Called to JOHNATHAN KABA at: 05:49:38 by:SANTOS Read back by:JOHNATHAN TYSON Recommended Therapeuptic Ranges: Prophylaxis/treatment of DVT and PE?2.0-3.0 Prevention of systemic embolism?.2.0-3.0 Mechanical prosthetic values?2.5-3.5 CRITICAL VALUES?.>4.0 Performed By: #### 8 [id number] ####BELKIS Urinalysis Automated Mjxdassins[address] [place] [address] Prothrombin time (PT) Coag time (PPP) 37.6 second(s) High 11.6-14.6 [facility] Comment on above: Result Comment: Crirufina ical Result PT:37.6 Called to JOHNATHAN KABA at: 05:49:38 by:SANTOS Read back by:JOHNATHAN KABA Performed By: #### 8 [id number] ####BELKIS Urinalysis Automated Nduhhjjnoy[address] [place] [address] UA Completeon 10-10-2017 UA Blood 1+ Abnormal Negative [facility] Comment on above: Performed By: #### 2 [id number] ####BELKIS Hematology Automated Dygntorwbp[address] [place] [address] UA Bacteria Trace Abnormal None [facility] Comment on above: Performed By: #### 2 [id number] ####BELKIS Hematology Automated Okmycraisu[address] [place] [address] UA Clarity Clear Normal Clear [facility] Comment on above: Performed By: #### 2 [id number] ####BELKIS Hematology Automated Vawclbhtdt[address] [place] [address] UA Leuk Est Negative Normal Negative [facility] Comment on above: Performed By: #### 2 [id number] ####BELKIS Hematology Automated Ehkpjtvbqu[address] [place] [address] UA Mucous Trace Abnormal Trace [facility] Comment on above: Performed By: #### 2 [id number] ####BELKIS Hematology Automated Jhybsbmerf[address] [place] [address] UA Nitrite Negative Normal Negative [facility] Comment on above: Performed By: #### 2 [id number] ####BELKIS Hematology Automated Qsdaovefzw[address] [place] [address] UA pH 6.0 Normal 4.6-8.0 [facility] Comment on above: Performed By: #### 2 [id number] ####BELKIS Hematology Automated Hhrlumobdj7[address] [place] [address] UA Protein Negative Normal Negative [facility] Comment on above: Performed By: #### 2 [id number] ####BELKIS Hematology Automated Vakwfqmuso8698 [place] [address] UA Spec Grav 1.014 Normal 1.003-1.030 [facility] Comment on above: Performed By: #### 2 212008 ####BELKIS Hematology Automated Gnywfococe1142 [place] [address] UA Squam Epithelial 0-5 Normal 0-5 [facility] Comment on above: Performed By: #### 2 [id number] ####BELKIS Hematology Automated Dgiexdgfbd8877 [place] [address] UA Urobilinogen Negative Normal [facility] Comment on above: Performed By: #### 2 [id number] ####BELKIS Hematology Automated Seshdqvwxb5998 [place] [address] UA WBC 0-5 Normal 0-5 [facility] Comment on above: Performed By: #### 2 904300 ####BELKIS Hematology Automated Oejedrdftf6288 [place] [address] Urine, color Yellow Normal Yellow [facility] Comment on above: Performed By: #### 2 756291 ####BELKIS Hematology Automated Crabircqri6176 [place] [address] Urine, erythrocytes 3-5 Abnormal 0-3 [facility] Comment on above: Performed By: #### 2 571450 ####BELKIS Hematology Automated Cvalznktwk5614 [place] [address] Urine, glucose Negative Normal Negative [facility] Comment on above: Performed By: #### 2 053013 ####BELKIS Hematology Automated Ttkwepsmlu8347 [place] [address] Urine, ketones presence Negative Normal Negative [facility] Comment on above: Performed By: #### 2 866104 ####BELKIS Hematology Automated Uxpuwhfobr9112 [place] [address] Urine, urobilinogen Negative Normal Negative [facility] Comment on above: Performed By: #### 2 395604 ####BELKIS Hematology Automated Uaxzshkuyk5524 [place] [address] eGFRon 10-10-2017 eGFR (non-black) mL/min/{1.73_m2} Normal [facility] Comment on above: Order Comment: Order added by Discern Expert. Performed By: #### 8 [id number] ####BELKIS Urinalysis Automated Zoxwjlgvzp2668 [place] [address] Auto Diffon 08-11-2017 Basophils Auto #/vol (Bld) 0.1 E3/mcL Normal 0.0-0.2 [facility] Comment on above: Order Comment: Order Added by Discern Expert. Performed By: #### 2 011938 ####BELKIS CmtOkml6000 [place] [address] Basophils/100 WBC Auto (Bld) 1.3 % Normal 0.0-2.0 [facility] Comment on above: Order Comment: Order Added by Discern Expert. Performed By: #### 2 [id number] ####BELKIS FusVgrl5841 [place] [address] Eos Absolute 0.2 E3/mcL Normal 0.0-0.7 [facility] Comment on above: Order Comment: Order Added by Discern Expert. Performed By: #### 2 369625 ####BELKIS JlpXuug8684 [place] [address] Eosinophils/100 leukocytes 3.1 % Normal 0.0-11.0 [facility] Comment on above: Order Comment: Order Added by Discern Expert. Performed By: #### 2 518347 ####BELKIS AvcPpqi2451 [place] [address] Lymphocytes 2.0 E3/mcL Normal 1.2-3.4 [facility] Comment on above: Order Comment: Order Added by Discern Expert. Performed By: #### 2 653080 ####BELKIS HqjGlkr0926 [place] [address] Lymphocytes/100 leukocytes 40.1 % Normal 20.0-55.0 [facility] Comment on above: Order Comment: Order Added by Discern Expert. Performed By: #### 2 712753 ####BELKIS MhlTkbo0758 [place] [address] [place] Absolute 0.5 E3/mcL Normal 0.0-0.7 [facility] Comment on above: Order Comment: Order Added by Discern Expert. Performed By: #### 2 029358 ####BELKIS Longo1025 [place] [address] Monocytes/100 leukocytes 9.9 % Normal 0.0-10.0 [facility] Comment on above: Order Comment: Order Added by Discern Expert. Performed By: #### 2 384977 ####BELKIS Longo[address]25 [place] [address] Neutro Absolute 2.3 E3/mcL Normal 1.4-6.5 [facility] Comment on above: Order Comment: Order Added by Discern Expert. Performed By: #### 2 [id number] ####BELKIS Longo[address]25 [place] [address] Neutro Auto 45.6 % Normal 37.0-75.0 [facility] Comment on above: Order Comment: Order Added by Discern Expert. Performed By: #### 2 240935 ####BELKIS Longo[address]25 [place] [address] BMPon 08-11-2017 BUN/Creatinine Ratio 21.4 ratio Normal 5.4-30.0 [facility] Comment on above: Performed By: #### 2 383644 ####BELKIS NncGuic7403 [place] [address] Creatinine 0.7 mg/dL Normal 0.6-1.3 [facility] Comment on above: Performed By: #### 2 924107 ####BELKIS UjpBdkl4528 [place] [address] Urea nitrogen 15 mg/dL Normal 7-18 [facility] Comment on above: Performed By: #### 2 [id number] ####BELKIS CheathamMmdZwic9212 [place] [address] Calcium 9.2 mg/dL Normal 8.4-10.2 [facility] Comment on above: Performed By: #### 2 211137 ####BELKISAbigail CheathamKkePejt8446 [place] [address] Chloride 100 mmol/L Normal 98-107 [facility] Comment on above: Performed By: #### 2 344687 ####BELKISAbigail CheathamOzeFsrw6158 [place] [address] CO2 23.3 mmol/L Low 24.0-30.0 [facility] Comment on above: Performed By: #### 2 316192 ####BELKIS PfnWtvc9272 [place] [address] Glucose mass conc 107 mg/dL High 70-99 [facility] Comment on above: Performed By: #### 2 175696 ####BELKIS YlfBhkw2624 [place] [address] Potassium molar conc 2.9 mmol/L Low 3.5-5.1 [facility] Comment on above: Performed By: #### 2 491375 ####BELKIS XzbBpnc1497 [place] [address] Sodium 136 mmol/L Normal 136-145 [facility] Comment on above: Performed By: #### 2 259438 ####BELKISAbigail CheathamTuhPemw3952 [place] [address] CBC w/ Auto Diffon Erythrocyte distribution width Auto Ratio (RBC) 12.5 % Normal 11.5-14.5 [facility] Comment on above: Performed By: #### 2 386862 ####BELKISAbigail CheathamAbiOeiu9041 [place] [address] Erythrocytes (RBC) 4.42 E6/mcL Normal 3.90-5.40 [facility] Comment on above: Performed By: #### 2 [id number] ####BELKISAbigail CheathamXulZzpf0064 [place] [address] Hematocrit (HCT) 42.2 % Normal 36.0-48.0 [facility] Comment on above: Performed By: #### 2 703594 ####BELKISAbigail CheathamWmkZidc6226 [place] [address] Hemoglobin mass conc (Bld) 14.9 g/dL Normal 12.0-16.0 [facility] Comment on above: Performed By: #### 2 741595 ####BELKISAbigail CheathamTqzZtih9514 [place] [address] MCH 33.6 pg High 27.0-31.0 [facility] Comment on above: Performed By: #### 2 796244 ####BELKIS Longo1025 [place] [address] MCHC mass conc (RBC) 35.2 g/dL Normal 33.0-37.0 [facility] Comment on above: Performed By: #### 2 925854 ####BELKIS Longo1025 [place] [address] MCV 95.7 fL Normal 78.0-100.0 [facility] Comment on above: Performed By: #### 2 [id number] ####BELKIS Longo1025 [place] [address] Platelet mean volume (PMV) 6.8 fL Low 7.4-11.0 [facility] Comment on above: Performed By: #### 2 576709 ####BELKIS [address]25 [place] [address] Platelets 281 E3/mcL Normal 130-400 [facility] Comment on above: Performed By: #### 2 265303 ####BELKIS [address]25 [place] [address] WBC (Leukocytes) 5.1 E3/mcL Normal 3.6-11.0 [facility] Comment on above: Performed By: #### 2 557978 ####BELKIS Longo1025 [place] [address] CT Abdomen/Pelvis w/ Contras ton 08-11-2017 CT [...] by: Manish Milton MD Technologist: MLL Normal [facility] Hep Func Panelon 08-11-2017 Alanine aminotransferase (ALT) 291 Int._Unit/L High 10-40 [facility] Comment on above: Performed By: #### 8 [id number] ####BELKIS Urinalysis Automated Qbkizmjvho2042 [place] [address] Albumin 4.9 g/dL Normal 3.2-5.0 [facility] Comment on above: Performed By: #### 8 5352300 ####BELKIS Urinalysis Automated Sqddlooqxv1181 [place] [id number] Albumin/Globulin Ratio 1.6 {ratio} Normal 1.1-1.9 [facility] Comment on above: Performed By: #### 8 1176443 ####BELKIS Urinalysis Automated Djqagkdyvh8469 [place] [address] Alk Phos 123 Int._Unit/L High 42-121 [facility] Comment on above: Performed By: #### 8 1089029 ####BELKIS Urinalysis Automated Ptrmakpgzn7957 [place] [address] Aspartate aminotransferase (AST) 222 Int._Unit/L High 10-42 [facility] Comment on above: Performed By: #### 8 0589388 ####BELKIS Urinalysis Automated Sakxxshtyk[address] [place], [place] [address] Bili Direct <.10 Normal .00-.20 [facility] Comment on above: Performed By: #### 8 [id number] ####BELKIS Urinalysis Automated Opycvwodwl[address] [place] [address] Bili Indirect >0.5 Normal [facility] Comment on above: Result Comment: No e stablished ranges available for the Indirect Biliruben. Performed By: #### 8 [id number] ####BELKIS Urinalysis Automated Irwnkaqvwa[address] [place] [address] Bili Total 0.6 mg/dL Normal 0.2-1.0 [facility] Comment on above: Performed By: #### 8 0969892 ####BELKIS Urinalysis Automated Kggnbnwonz[address]66[address] [place] [address] Globulin 3.0 g/dL Normal 2.0-4.0 [facility] Comment on above: Performed By: #### 8 6863232 ####BELKIS Urinalysis Automated Jdmbsjbogv25[address] [place] [address] Protein 7.9 g/dL Normal 6.4-8.3 [facility] Comment on above: Performed By: #### 8 [id number] ####BELKIS Urinalysis Automated Prnqizykzi13[address] [place] [address] Lactic Acidon 08-11-2017 Lactic Acid Lvl 1.1 mmol/L Normal 0.5-2.2 [facility] Comment on above: Performed By: #### 2 [id number] ####BELKIS WttEupw7539[address] [place] [address] Lipase Levelon 08-11-2017 Lipase Lvl 18 U/L Normal 8-57 [facility] Comment on above: Performed By: #### 8 1446650 ####BELKIS Urinalysis Automated Bdmqlfmjxr7127[address] [place] [address] PTon 08-11-2017 INR Coag RelTime (PPP) 2.8 {INR} High 1.0-1.2 [facility] Comment on above: Result Comment: INR Recommended Therapeuptic Ranges: Prophylaxis/treatment of DVT and PE?2.0-3.0 Prevention of systemic embolism?.2.0-3.0 Mechanical prosthetic values?2.5-3.5 CRITICAL VALUES?.>4.0 Performed By: #### 2 [id number] ####BELKIS Hematology Automated Fatcvfdbts3859 [place] [address] Prothrombin time (PT) Coag time (PPP) 27.8 second(s) High 11.6-14.6 [facility] Comment on above: Performed By: #### 2 253466 ####BELKIS Hematology Automated Mgtthqxtnc[address] [place] [address] PTTon 08-11-2017 aPTT 34.7 second(s) Normal 23.2-36.4 [facility] Comment on above: Performed By: #### 2 869755 ####BELKIS Hematology Automated Aklyixfyij[address] [place] [address] PTT Control Ratioon 08-11-20 17 PTT Ratio 1.2 ratio Normal 0.8-1.2 [facility] Comment on above: Order Comment: Order added by Discern Expert. Performed By: #### 8 [id number] ####BELKIS Hematology Automated Ms[address]uexhw[address] [place] [address] U Drug Screenon 08-11-2017 U Amph Scr Negative Normal [facility] Comment on above: Result Comment: Resu lts for medical use only. Confirmation of positive results will be done when requested. Specimens are kept for one week. Performed By: #### 2 761708 ####BELKIS VshTpds8361 [place] [address] U Angy Scr Negative Normal [facility] Comment on above: Performed By: #### 2 676517 ####BELKIS XhzMpxz3358 [place] [address] U Benzodia Scr Negative Normal [facility] Comment on above: Performed By: #### 2 711833 ####BELKIS OdxTrua2766 [place] [address] U Cannab Scr Negative Normal [facility] Comment on above: Performed By: #### 2 [id number] ####BELKIS IxqCbmm6438 [place] [address] U Cocaine Scr Negative Normal [facility] Comment on above: Performed By: #### 2 164008 ####BELKIS AhvIfad2167 [place] [address] U Opiate Scr Negative Normal [facility] Comment on above: Performed By: #### 2 935475 ####BELKIS LozMyrq5158 [place] [address] U PCP Scr Negative Normal [facility] Comment on above: Performed By: #### 2 528064 ####BELKIS XmnWxvr6473 [place] [address] UA Completeon 08-11-2017 UA Blood 1+ Abnormal Negative [facility] Comment on above: Performed By: #### 8 [id number] ####BELKIS Urinalysis Automated [id number] [place] [address] UA Clarity Clear Normal Clear [facility] Comment on above: Performed By: #### 8 [id number] ####[facility] Urinalysis [employer]ated [id number] [place] [address] UA Hyal Cast 0-2 Normal 0-2 [facility] Comment on above: Performed By: #### 8 [id number] ####[facility] Urinalysis [employer]ated [address] [place] [address] UA Leuk Est Negative Normal Negative [facility] Comment on above: Performed By: #### 8 [id number] ####[facility]KIS Urinalysis Automated [id number] [place] [address] UA Mucous Trace Abnormal Trace [facility] Comment on above: Performed By: #### 8 [id number] ####BELKIS Urinalysis Automated [id number] [place] [address] UA Nitrite Negative Normal Negative [facility] Comment on above: Performed By: #### 8 [id number] ####BELKIS Urinalysis Automated [id number] [place] [address] UA pH 5.0 Normal 4.6-8.0 [facility] Comment on above: Performed By: #### 8 [id number] ####BELKIS Urinalysis Automated Rhhdrpaqoj0850 [place] [address] UA Protein Negative Normal Negative [facility] Comment on above: Performed By: #### 8 [id number] ####BELIKS Urinalysis Automated [address] [place] [address] UA Spec Grav 1.003 Normal 1.003-1.030 [facility] Comment on above: Performed By: #### 8 [id number] ####BELKIS Urinalysis Automated [address] [place] [address] UA Squam Epithelial 0-5 Normal 0-5 [facility] Comment on above: Performed By: #### 8 [id number] ####BELKIS Urinalysis Automated [address] [place] [address] UA Urobilinogen Negative Normal [facility] Comment on above: Performed By: #### 8 [id number] ####BELKIS Urinalysis Automated [id number] [place] [address] UA WBC 0-5 Normal 0-5 [facility] Comment on above: Performed By: #### 8 [id number] ####BELKIS Urinalysis Automated [address]nxwngihew8813 [place] [address] Urine, color Colorless Normal Yellow [facility] Comment on above: Performed By: #### 8 [id number] ####BELKIS Urinalysis Automated [address]xxrhmn4713 [place] [address] Urine, erythrocytes 0-3 Normal 0-3 [facility] Comment on above: Performed By: #### 8 [id number] ####BELKIS Urinalysis Automated [address]shquybzmx[address]2 [place] [address] Urine, glucose Negative Normal Negative [facility] Comment on above: Performed By: #### 8 [id number] ####BELKIS Urinalysis Automated [address]smt[address] [place] [address] Urine, ketones presence Negative Normal Negative [facility] Comment on above: Performed By: #### 8 [id number] ####BELKIS Urinalysis Automated [address]qprx[address]l24[address] [place] [address] Urine, urobilinogen Negative Normal Negative [facility] Comment on above: Performed By: #### 8 [id number] ####BELKIS Urinalysis Automated [address] [place] [address] eGFRon 08-11-2017 eGFR (non-black) mL/min/{1.73_m2} Normal [facility] Comment on above: Order Comment: Order added by Discern Expert. Performed By: #### 8 [id number] ####BELKIS Urinalysis Automated [address] [place] [address] XR Wrist 3+ Views Lefton XR Wrist 3+ Views Left Exam Date/Time:06/14/2017 15:20 EDTReason for Exam:Pain, TraumaticReportLEFT WRIST5 ViewsHISTORY: Injury.FINDINGS: No fracture is seen. The carpals are intact. The intercarpal distanceis within normal limitsIMPRESSION:No fracture or dislocation. FINAL REPORT Dictated: 06/14/2017 4:00 pm Sree Ware MDigned (Electronic Signature): 06/14/2017 4:00 pmSigned by: Sree Ware MD Technologist: [facility] Normal [facility] Vital Signs Date Time Vital Sign Value Performing Clinician Facility 06-16-2024 11:11-0400 Body mass index (BMI) [Ratio] 40.11 kg/m2 Odilia Gunn APRN.CNP Work Phone: [facility] 06-16-2024 11:11-0400 Body temperature 97.3 [degF] Odilia Gunn APRN.SPECIAL NEEDS TEACHER Work Phone: [facility] 06-16-2024 11:11-0400 Body weight 102.7 kg Odilia Gunn APRN.SPECIAL NEEDS TEACHER Work Phone: [facility] 06-16-2024 11:11-0400 Diastolic blood pressure 80 mm[Hg] Odilia Gunn APRN.SPECIAL NEEDS TEACHER Work Phone: [facility] 06-16-2024 11:11-0400 Heart rate 103 /min Odilia Gunn APRN.SPECIAL NEEDS TEACHER Work Phone: [facility] 06-16-2024 11:11-0400 Respiratory rate 20 /min Odilia Luis A MANAGER PROFESSIONAL DEVELOPMENT.SPECIAL NEEDS TEACHER Work Phone: [facility] 06-16-2024 11:11-0400 SaO2% (BldA) [Mass fraction] 98 % Odilia Gunn MANAGER PROFESSIONAL DEVELOPMENT.SPECIAL NEEDS TEACHER Work Phone: [facility] 06-16-2024 11:11-0400 Systolic blood pressure 120 mm[Hg] Odilia Gunn MANAGER PROFESSIONAL DEVELOPMENT.SPECIAL NEEDS TEACHER Work Phone: [facility] 06-08-2024 14:18-0400 Body mass index (BMI) [Ratio] 41.98 kg/m2 Laury Port Norris MANAGER PROFESSIONAL DEVELOPMENT.SPECIAL NEEDS TEACHER Work Phone: [facility] 06-08-2024 14:18-0400 Body weight 107.5 kg Laury [place] MANAGER PROFESSIONAL DEVELOPMENT.SPECIAL NEEDS TEACHER Work Phone: [facility] 06-08-2024 14:18-0400 Diastolic blood pressure 78 mm[Hg] Laury [place] MANAGER PROFESSIONAL DEVELOPMENT.SPECIAL NEEDS TEACHER Work Phone: [facility] 06-08-2024 14:18-0400 Systolic blood pressure 134 mm[Hg] Laury [place] MANAGER PROFESSIONAL DEVELOPMENT.SPECIAL NEEDS TEACHER Work Phone: [facility] 05-31-2024 14:57-0400 Body mass index (BMI) [Ratio] 40.92 kg/m2 Lynn Maier MD Work Phone: [facility] 05-31-2024 14:57-0400 Body weight 104.78 kg Lynn Maier MD Work Phone: [facility] 05-31-2024 14:57-0400 Diastolic blood pressure 82 mm[Hg] Lynn Maier MD Work Phone: [facility] 05-31-2024 14:57-0400 Systolic blood pressure 124 mm[Hg] Lynn Maier MD Work Phone: [facility] 03-05-2024 18:30-0400 Diastolic blood pressure 97 mm[Hg] Colton Hicks MD Work Phone: [facility] 03-05-2024 18:30-0400 Heart rate 95 /min Colton Hicks MD Work Phone: [facility] 03-05-2024 18:30-0400 Respiratory rate 17 /min Colton Hicks MD Work Phone: [facility] 03-05-2024 18:30-0400 SaO2% (BldA) [Mass fraction] 97 % Colton Hicks MD Work Phone: [facility] 03-05-2024 18:30-0400 Systolic blood pressure 129 mm[Hg] Colton Hicks MD Work Phone: [facility] 03-05-2024 17:26-0400 Body height 162.6 cm Colton Hicks MD Work Phone: [facility] 03-05-2024 17:26-0400 Body mass index (BMI) [Ratio] 38.28 kg/m2 Colton Hicks MD Work Phone: [facility] 03-05-2024 17:26-0400 Body temperature 98.6 [degF] Colton Hicks MD Work Phone: [facility] 03-05-2024 17:26-0400 Body weight 101.15 kg Colton Hicks MD Work Phone: [facility] 03-02-2024 15:37-0400 Body temperature 97.3 [degF] Mike Land MD Work Phone: [facility] 03-02-2024 15:37-0400 Diastolic blood pressure 69 mm[Hg] Mike Land MD Work Phone: [facility] 03-02-2024 15:37-0400 Heart rate 95 /min Mike Land MD Work Phone: [facility] 03-02-2024 15:37-0400 Respiratory rate 14 /min Mike Land MD Work Phone: [facility] 03-02-2024 15:37-0400 SaO2% (BldA) [Mass fraction] 94 % Mike Land MD Work Phone: [facility] 03-02-2024 15:37-0400 Systolic blood pressure 104 mm[Hg] Mike Land MD Work Phone: [facility] 02-28-2024 03:53-0400 Body height 162.6 cm Mike Land MD Work Phone: [facility] 02-28-2024 03:53-0400 Body mass index (BMI) [Ratio] 40.19 kg/m2 Mike Land MD Work Phone: [facility] 02-28-2024 03:53-0400 Body weight 106.2 kg Mike Land MD Work Phone: [facility] 12-08-2023 13:08-0400 Body temperature 96.69 [degF] Nancy Agrawal MD Work Phone: [facility] 12-08-2023 13:08-0400 Diastolic blood pressure 80 mm[Hg] Nancy Agrawal MD Work Phone: [facility] 12-08-2023 13:08-0400 Heart rate 97 /min Nancy Agrawal MD Work Phone: [facility] 12-08-2023 13:08-0400 Respiratory rate 14 /min Nancy Agrawal MD Work Phone: [facility] 12-08-2023 13:08-0400 SaO2% (BldA) [Mass fraction] 96 % Nancy Agrawal MD Work Phone: [facility] 12-08-2023 13:08-0400 Systolic blood pressure 139 mm[Hg] Nancy Agrawal MD Work Phone: [facility] 12-05-2023 15:03-0400 Body height 160 cm Nancy Agrawal MD Work Phone: [facility] 12-05-2023 15:03-0400 Body mass index (BMI) [Ratio] 40.75 kg/m2 Nancy Agrawal MD Work Phone: [facility] 12-05-2023 15:03-0400 Body weight 104.33 kg Nancy Agrawal MD Work Phone: [facility] 12-05-2023 07:24-0400 Body height 160 cm Uvaldo Chavez MD Work Phone: [facility] 12-05-2023 07:24-0400 Body mass index (BMI) [Ratio] 40.74 kg/m2 Uvaldo Chavez MD Work Phone: [facility] 12-05-2023 07:24-0400 Body temperature 97 [degF] Uvaldo Chavez MD Work Phone: [facility] 12-05-2023 07:24-0400 Body weight 104.33 kg Uvaldo Chavez MD Work Phone: [facility] 12-05-2023 07:24-0400 Diastolic blood pressure 84 mm[Hg] Uvaldo Chavez MD Work Phone: [facility] 12-05-2023 07:24-0400 Heart rate 86 /min Uvaldo Chavez MD Work Phone: [facility] 12-05-2023 07:24-0400 Respiratory rate 20 /min Uvaldo Chavez MD Work Phone: [facility] 12-05-2023 07:24-0400 SaO2% (BldA) [Mass fraction] 96 % Uvaldo Chavez MD Work Phone: [facility] 12-05-2023 07:24-0400 Systolic blood pressure 126 mm[Hg] Uvaldo Chavez MD Work Phone: [facility] 11-15-2023 12:21-0500 Body temperature 98.1 [degF] Chi Galvin MD Work Phone: [facility] 11-15-2023 12:21-0500 Diastolic blood pressure 72 mm[Hg] Chi Galvin MD Work Phone: [facility] 11-15-2023 12:21-0500 Heart rate 99 /min Chi Galvin MD Work Phone: [facility] 11-15-2023 12:21-0500 Respiratory rate 16 /min Chi Galvni MD Work Phone: [facility] 11-15-2023 12:21-0500 SaO2% (BldA) [Mass fraction] 94 % Chi Galvin MD Work Phone: [facility] 11-15-2023 12:21-0500 Systolic blood pressure 106 mm[Hg] Chi Galvin MD Work Phone: [facility] 11-15-2023 05:54-0500 Body mass index (BMI) [Ratio] 41.4 kg/m2 Chi Galvin MD Work Phone: [facility] 11-15-2023 05:54-0500 Body weight 106 kg Chi Galvin MD Work Phone: [facility] 11-10-2023 19:02-0500 Body height 160 cm Chi Galvin MD Work Phone: [facility] 11-10-2023 16:52-0500 Body temperature 37.0 Chi Galvin MD Work Phone: [facility] Comment on above: NOTE: Patient Results are Not Corrected for Temperature 11-10-2023 16:49-0500 Body temperature 37.0 degrees Celsius COLTON KURT [facility] Comment on above: Result Comment: NOTE: Patient Results ar e Not Corrected for Temperature Performed By: #### 2 [id number] ####ANDI Cotter ([id number])[facility])[address] [place] [address] 10-27-2023 10:45-0500 Body height 160 cm Tianna Rasmussen MD Work Phone: [facility] 10-27-2023 10:45-0500 Body mass index (BMI) [Ratio] 40.74 kg/m2 Tianna Rasmussen MD Work Phone: [facility] 10-27-2023 10:45-0500 Body temperature 96.4 [degF] Tianna Rasmussen MD Work Phone: [facility] 10-27-2023 10:45-0500 Body weight 104.33 kg Tianna Rasmussen MD Work Phone: [facility] 10-27-2023 10:45-0500 Diastolic blood pressure 83 mm[Hg] Tianna Rasmussen MD Work Phone: [facility] 10-27-2023 10:45-0500 Heart rate 97 /min Tianna Rasmussen MD Work Phone: [facility] 10-27-2023 10:45-0500 Respiratory rate 20 /min Tianna Rasmussen MD Work Phone: [facility] 10-27-2023 10:45-0500 SaO2% (BldA) [Mass fraction] 96 % Tianna Rasmussen MD Work Phone: [facility] 10-27-2023 10:45-0500 Systolic blood pressure 116 mm[Hg] Tianna Rasmussen MD Work Phone: [facility] 10-18-2023 11:00-0500 Diastolic blood pressure 72 mm[Hg] [facility] 10-18-2023 11:00-0500 Heart rate 87 /min [facility] 10-18-2023 11:00-0500 Respiratory rate 18 /min [facility] 10-18-2023 11:00-0500 SaO2% (BldA) [Mass fraction] 98 % [facility] 10-18-2023 11:00-0500 Systolic blood pressure 113 mm[Hg] [facility] 10-18-2023 08:10-0500 Body temperature 96.8 [degF] [facility] 10-17-2023 18:36-0500 Diastolic Blood Pressure Non-Invasive 82 mm[Hg] ADINA WHITT MD [facility] 10-17-2023 18:36-0500 Heart rate 85 /min ADINA WHITT MD [facility] 10-17-2023 18:36-0500 Respiratory rate 16 /min ADINA WHITT MD [facility] 10-17-2023 18:36-0500 Systolic Blood Pressure Non-Invasive 124 mm[Hg] ADINA WHITT MD [facility] 10-17-2023 15:51-0500 Blood Pressure Location ADINA WHITT MD [facility] 10-17-2023 15:51-0500 Body height 160 cm ADINA WHITT MD [facility] 10-17-2023 15:51-0500 Body temperature 97.34 [degF] ADINA WHITT MD [facility] 10-17-2023 15:51-0500 Body weight 104.5 kg ADINA WHITT MD [facility] 10-17-2023 15:51-0500 Diastolic Blood Pressure Non-Invasive 104 mm[Hg] ADINA WHITT MD [facility] 10-17-2023 15:51-0500 Heart rate 112 /min ADINA WHITT MD [facility] 10-17-2023 15:51-0500 Respiratory rate 18 /min ADINA WHITT MD [facility] 10-17-2023 15:51-0500 Systolic Blood Pressure Non-Invasive 149 mm[Hg] ADINA WHITT MD [facility] 08-26-2023 13:59-0500 Diastolic blood pressure 67 mm[Hg] [address] 08-26-2023 13:59-0500 Heart rate 74 /min [address] 08-26-2023 13:59-0500 Respiratory rate 15 /min [address] 08-26-2023 13:59-0500 SaO2% (BldA) [Mass fraction] 98 % [address] 08-26-2023 13:59-0500 Systolic blood pressure 110 mm[Hg] [address] 08-26-2023 11:23-0500 Body temperature 96.4 [degF] [address] 08-03-2023 08:17-0500 Body height 160 cm Colotn Hicks MD Work Phone: [facility] 08-03-2023 08:17-0500 Body mass index (BMI) [Ratio] 39.01 kg/m2 Colton Hicks MD Work Phone: [facility] 08-03-2023 08:17-0500 Body temperature 97.3 [degF] Colton Hicks MD Work Phone: [facility] 08-03-2023 08:17-0500 Body weight 99.88 kg Colton Hicks MD Work Phone: [facility] 08-03-2023 08:17-0500 Diastolic blood pressure 73 mm[Hg] Colton Hicks MD Work Phone: [facility] 08-03-2023 08:17-0500 Heart rate 70 /min Colton Hicks MD Work Phone: [facility] 08-03-2023 08:17-0500 Respiratory rate 24 /min Colton Hicks MD Work Phone: [facility] 08-03-2023 08:17-0500 SaO2% (BldA) [Mass fraction] 98 % Colton Hicks MD Work Phone: [facility] 08-03-2023 08:17-0500 Systolic blood pressure 111 mm[Hg] Colton Hicks MD Work Phone: [facility] 06-18-2023 15:15-0400 Body temperature 97 [degF] Angela Miles MD Work Phone: [facility] 06-18-2023 15:15-0400 Diastolic blood pressure 104 mm[Hg] Angela Miles MD Work Phone: [facility] 06-18-2023 15:15-0400 Heart rate 81 /min Angela Miles MD Work Phone: [facility] 06-18-2023 15:15-0400 Respiratory rate 17 /min Angela Miles MD Work Phone: [facility] 06-18-2023 15:15-0400 SaO2% (BldA) [Mass fraction] 95 % Angela Miles MD Work Phone: [facility] 06-18-2023 15:15-0400 Systolic blood pressure 138 mm[Hg] Angela Miles MD Work Phone: [facility] 06-17-2023 02:23-0400 Body height 159.9 cm Angela Miles MD Work Phone: [facility] 06-17-2023 02:23-0400 Body mass index (BMI) [Ratio] 37.55 kg/m2 Angela Miles MD Work Phone: [facility] 06-17-2023 02:23-0400 Body weight 96 kg Angela Miles MD Work Phone: [facility] 06-03-2023 16:26-0400 Diastolic Blood Pressure Non-Invasive 78 1 YOANA WEAVER MD [facility] 06-03-2023 16:26-0400 Heart rate 75 /min YOANA WEAVER MD [facility] 06-03-2023 16:26-0400 Respiratory rate 16 /min YOANA WEAVER MD [facility] 06-03-2023 16:26-0400 Systolic Blood Pressure Non-Invasive 116 1 YOANA WEAVER MD [facility] 06-03-2023 14:52-0400 Body temperature 97.16 [degF] YOANA WEAVER MD [facility] 06-03-2023 14:52-0400 Body weight 97.7 kg YOANA WEAVER MD [facility] 06-03-2023 14:52-0400 Diastolic Blood Pressure Non-Invasive 80 1 YOANA WEAVER MD [facility] 06-03-2023 14:52-0400 Heart rate 93 /min YOANA WEAVER MD [facility] 06-03-2023 14:52-0400 Respiratory rate 16 /min YOANA WEAVER MD [facility] 06-03-2023 14:52-0400 Systolic Blood Pressure Non-Invasive 121 1 YOANA WEAVER MD [facility] 05-25-2023 09:31-0400 Body temperature 36.6 [degF] Cj Rivera [facility] Work Phone: 05-25-2023 09:31-0400 Diastolic blood pressure 89 mm[Hg] Cj Rivera Work Phone: [facility] Work Phone: 05-25-2023 09:31-0400 Heart rate 89 /min Cj Rivera Work Phone: [facility] Work Phone: 05-25-2023 09:31-0400 SaO2% (BldA) [Mass fraction] 96 % Cj Rivera Work Phone: [facility] Work Phone: 05-25-2023 09:31-0400 Systolic blood pressure 136 mm[Hg] Cj Rivera Work Phone: [facility] Work Phone: 05-25-2023 09:29-0400 Body height 160.02 cm Cj Rivera Work Phone: [facility] Work Phone: 05-25-2023 09:29-0400 Body mass index (BMI) [Ratio] 38.62 kg/m2 Cj Rivera Work Phone: [facility] Work Phone: 05-25-2023 09:29-0400 Body surface area Derived from formula 2.01 m2 Cj Rivera Work Phone: [facility] Work Phone: 05-25-2023 09:29-0400 Body weight 98.88 kg Cj Rivera Work Phone: [facility] Work Phone: 05-25-2023 09:29-0400 Respiratory rate 16 /min Cj Rivera Work Phone: [facility] Work Phone: 05-23-2023 04:42-0400 Diastolic Blood Pressure Non-Invasive [address] ALEXEY CHEEK DO [facility] 05-23-2023 04:42-0400 Heart rate 98 /min DR ALEXEY CHEEK DO [facility] 05-23-2023 04:42-0400 Respiratory rate 18 /min DR ALEXEY CHEEK DO [facility] 05-23-2023 04:42-0400 Systolic Blood Pressure Non-Invasive [address] ALEXEY CHEEK DO [facility] 05-23-2023 03:57-0400 Diastolic Blood Pressure Non-Invasive [address] ALEXEY CHEEK DO [facility] 05-23-2023 03:57-0400 Heart rate 105 /min DR ALEXEY CHEEK DO [facility] 05-23-2023 03:57-0400 Respiratory rate 16 /min DR ALEXEY CHEEK DO [facility] 05-23-2023 03:57-0400 Systolic Blood Pressure Non-Invasive [address] ALEXEY CHEEK DO [facility] 05-23-2023 02:41-0400 Body temperature 98.24 [degF] DR ALEXEY CHEEK DO [facility] 05-23-2023 02:41-0400 Diastolic Blood Pressure Non-Invasive [address] ALEXEY CHEEK DO [facility] 05-23-2023 02:41-0400 Heart rate 121 /min DR ALEXEY CHEEK DO [facility] 05-23-2023 02:41-0400 Respiratory rate 18 /min DR ALEXEY CHEEK DO [facility] 05-23-2023 02:41-0400 Systolic Blood Pressure Non-Invasive [address] ALEXEY CHEEK DO [facility] 05-19-2023 14:54-0400 Body temperature 98.78 [degF] LETHA CID MD [facility] 05-19-2023 14:54-0400 Diastolic Blood Pressure Non-Invasive 87 1 LETHA CID MD [facility] 05-19-2023 14:54-0400 Heart rate 108 /min LETHA CID MD [facility] 05-19-2023 14:54-0400 Respiratory rate 16 /min LETHA CID MD [facility] 05-19-2023 14:54-0400 Systolic Blood Pressure Non-Invasive 110 1 LETHA CID MD [facility] 05-16-2023 15:15-0400 Body temperature 96.8 [degF] Cj Rivera Other Phone: [facility] 05-16-2023 15:15-0400 Diastolic blood pressure 76 mm[Hg] Cj Rivera Other Phone: [facility] 05-16-2023 15:15-0400 Heart rate 97 /min Cj Rivera Other Phone: [facility] 05-16-2023 15:15-0400 Respiratory rate 18 /min Cj Rivera Other Phone: [facility] 05-16-2023 15:15-0400 SaO2% (BldA) [Mass fraction] 95 % Cj Rivera Other Phone: [facility] 05-16-2023 15:15-0400 Systolic blood pressure 107 mm[Hg] Cj Rviera Other Phone: [facility] 05-09-2023 10:36-0400 Diastolic Blood Pressure Non-Invasive 63 1 YOANA WEAVER MD [facility] 05-09-2023 10:36-0400 Heart rate 89 /min YOANA WEAVER MD [facility] 05-09-2023 10:36-0400 Respiratory rate 16 /min YOANA WEAVER MD [facility] 05-09-2023 10:36-0400 Systolic Blood Pressure Non-Invasive 104 1 YOANA WEAVER MD [facility] 05-09-2023 10:13-0400 Diastolic Blood Pressure Non-Invasive 60 1 YOANA WEAVER MD [facility] 05-09-2023 10:13-0400 Heart rate 86 /min YOANA WEAVER MD [facility] 05-09-2023 10:13-0400 Respiratory rate 16 /min YOANA WEAVER MD [facility] 05-09-2023 10:13-0400 Systolic Blood Pressure Non-Invasive 106 1 YOANA WEAVER MD [facility] 05-09-2023 08:07-0400 Body temperature 98.78 [degF] YOANA WEAVER MD [facility] 05-09-2023 08:07-0400 Body weight 96.5 kg YOANA WEAVER MD [facility] 05-09-2023 08:07-0400 Diastolic Blood Pressure Non-Invasive 68 1 YOANA WEAVER MD [facility] 05-09-2023 08:07-0400 Heart rate 93 /min YOANA WEAVER MD [facility] 05-09-2023 08:07-0400 Respiratory rate 16 /min YOANA WEAVER MD [facility] 05-09-2023 08:07-0400 Systolic Blood Pressure Non-Invasive 132 1 YOANA WEAVER MD [facility] 04-30-2023 00:40-0400 Body temperature 96.91 [degF] Lisbethkerri Davies DO [facility]: [facility] 04-30-2023 00:40-0400 Diastolic blood pressure 85 mm[Hg] Lisbeht Samson DO Work Phone: [facility] 04-30-2023 00:40-0400 Heart rate 97 /min Lisbeth Samson DO Work Phone: [facility] 04-30-2023 00:40-0400 SaO2% (BldA) [Mass fraction] 94 % Lisbeth Samson DO Work Phone: [facility] 04-30-2023 00:40-0400 Systolic blood pressure 129 mm[Hg] Lisbeth Samson DO Work Phone: [facility] 04-30-2023 00:32-0400 Respiratory rate 15 /min Lisbeth Samson DO [facility] 04-29-2023 21:21-0400 Diastolic Blood Pressure Non-Invasive 68 1 MOLINA QUIROZ DO [facility] 04-29-2023 21:21-0400 Heart rate 92 /min MOLINA JIMKA DO [facility] 04-29-2023 21:21-0400 Respiratory rate 18 /min MOLINA QUIROZ DO [facility] 04-29-2023 21:21-0400 Systolic Blood Pressure Non-Invasive 103 1 MOLINA JIMKA DO [facility] 04-29-2023 12:45-0400 Blood Pressure Cuff Size MOLINA JIMKA DO [facility] 04-29-2023 12:45-0400 Blood Pressure Location MOLINA JIMKA DO [facility] 04-29-2023 12:45-0400 Blood Pressure Method MOLINA QUIROZ DO [facility] 04-29-2023 12:45-0400 Body temperature 98.78 [degF] MOLINA HERRERAESKA DO [facility] 04-29-2023 12:45-0400 Diastolic Blood Pressure Non-Invasive 98 1 MOLINA QUIROZ DO [facility] 04-29-2023 12:45-0400 Heart rate 102 /min MOLINA QUIROZ DO [facility] 04-29-2023 12:45-0400 Respiratory rate 18 /min MOLINA JIMKA DO [facility] 04-29-2023 12:45-0400 Systolic Blood Pressure Non-Invasive 140 1 MOLINA JIMKA DO [facility] 04-28-2023 09:52-0400 Body temperature 97.7 [degF] Cj Rivera Other Phone: [facility] 04-28-2023 09:52-0400 Diastolic blood pressure 79 mm[Hg] Cj Rivera Other Phone: [facility] 04-28-2023 09:52-0400 Heart rate 93 /min Cj Rivera Other Phone: [facility] 04-28-2023 09:52-0400 Respiratory rate 17 /min Cj Thompsonkellie Other Phone: [facility] 04-28-2023 09:52-0400 SaO2% (BldA) [Mass fraction] 96 % Cj Rivera Other Phone: [facility] 04-28-2023 09:52-0400 Systolic blood pressure 119 mm[Hg] Cj Lorkellie Other Phone: [facility] 04-25-2023 16:40-0400 Diastolic Blood Pressure Non-Invasive 74 1 WIN ALLRED MD [facility] 04-25-2023 16:40-0400 Heart rate 76 /min WIN ALLRED MD [facility] 04-25-2023 16:40-0400 Respiratory rate 16 /min WIN ALLRED MD [facility] 04-25-2023 16:40-0400 Systolic Blood Pressure Non-Invasive 136 1 WIN ALLRED MD [facility] 04-25-2023 12:00-0400 Body temperature 98.6 [degF] WIN ALLRED MD [facility] 04-25-2023 12:00-0400 Diastolic Blood Pressure Non-Invasive 69 1 WIN ALLRED MD [facility] 04-25-2023 12:00-0400 Heart rate 77 /min WIN ALLRED MD [facility] 04-25-2023 12:00-0400 Systolic Blood Pressure Non-Invasive 118 1 WIN ALLRED MD [facility] 04-25-2023 06:35-0400 Diastolic Blood Pressure Non-Invasive 91 1 WIN ALLRED MD [facility] 04-25-2023 06:35-0400 Heart rate 74 /min WIN ALLRED MD [facility] 04-25-2023 06:35-0400 Respiratory rate 18 /min WIN ALLRED MD [facility] 04-25-2023 06:35-0400 Systolic Blood Pressure Non-Invasive 126 1 WIN ALLRED MD [facility] 04-25-2023 03:27-0400 Reason For Taking VItal Signs WIN ALLRED MD [facility] 04-25-2023 01:38-0400 Reason For Taking VItal Signs WIN ALLRED MD [facility] 04-25-2023 00:24-0400 Body temperature 99.14 [degF] WIN ALLRED MD [facility] 04-25-2023 00:24-0400 Body weight 96.4 kg WIN ALLRED MD [facility] 04-02-2023 22:58-0400 Body temperature 99.14 [degF] MOLINA VALLE MD FACP [facility] 04-02-2023 22:58-0400 Diastolic Blood Pressure Non-Invasive 81 1 MOLINA VALLE MD FACP [facility] 04-02-2023 22:58-0400 Heart rate 84 /min MOLINA VALLE MD FACP [facility] 04-02-2023 22:58-0400 Respiratory rate 19 /min MOLINA VALLE MD FACP [facility] 04-02-2023 22:58-0400 Systolic Blood Pressure Non-Invasive 147 1 MOLINA VALLE MD FACP [address] [place] [address] 04-02-2023 19:56-0400 Heart rate 79 /min MOLINA VALLE MD FACP [address] [place] [address] 04-02-2023 19:56-0400 Respiratory rate 19 /min MOLINA VALLE MD FACP [address] [place] [address] 04-02-2023 14:21-0400 Body temperature 98.24 [degF] MOLINA VALLE MD FACP [address] [place] [address] 04-02-2023 14:21-0400 Diastolic Blood Pressure Non-Invasive 79 1 MOLINA VALLE MD FACP [address] [place] [address] 04-02-2023 14:21-0400 Heart rate 79 /min MOLINA VALLE MD FACP [address] [place] [address] 04-02-2023 14:21-0400 Respiratory rate 18 /min MOLINA VALLE MD FACP [address] [place] [address] 04-02-2023 14:21-0400 Systolic Blood Pressure Non-Invasive 119 1 MOLINA VALLE MD FACP [address] [place] [address] 04-02-2023 07:04-0400 Heart rate 70 /min MOLINA VALLE MD FACP [address] [place] [address] 04-02-2023 06:38-0400 Blood Pressure Location MOLINA VALLE MD FACP [address] [place] [address] 04-02-2023 06:38-0400 Blood Pressure Method MOLINA VALLE MD FACP [address] [place] [address] 04-02-2023 06:38-0400 Body temperature 97.88 [degF] MOLINA VALLE MD FACP [address] [place] [address] 04-02-2023 06:38-0400 Diastolic Blood Pressure Non-Invasive 78 1 MOLINA VALLE MD FACP [address] [place] [address] 04-02-2023 06:38-0400 Mean blood pressure 94 mm[Hg] MOLINA VALLE MD FACP [facility] 04-02-2023 06:38-0400 Reason For Taking VItal Signs MOLINA VALLE MD FACP [facility] 04-02-2023 06:38-0400 Systolic Blood Pressure Non-Invasive 129 1 MOLINA VALLE MD FACP [address] [place] [address] 04-01-2023 14:41-0400 Blood Pressure Cuff Size MOLINA VALLE MD FACP [address] [place] [address] 04-01-2023 14:41-0400 Blood Pressure Location MOLINA VALLE MD FACP [address] [place] [address] 04-01-2023 14:41-0400 Blood Pressure Method MOLINA VALLE MD FACP [address] [place] [address] 04-01-2023 14:41-0400 Reason For Taking VItal Signs MOLINA VALLE MD FACP [facility] 04-01-2023 14:14-0400 Reason For Taking VItal Signs MOLINA VALLE MD FACP [facility] 04-01-2023 14:05-0400 Body height 160 cm MOLINA VALLE MD FACP [address] [place] [address] 04-01-2023 14:05-0400 Body weight 100.2 kg MOLINA VALLE MD FACP [address] [place] [address] 04-01-2023 14:05-0400 Body weight 39.14 kg/m2 MOLINA VALLE MD FACP [address] [place] [address] 04-01-2023 13:46-0400 Blood Pressure Location MOLINA VALLE MD FACP [address] [place] [address] 04-01-2023 13:46-0400 Blood Pressure Method MOLINA VALLE MD FACP [address] [place] [address] 04-01-2023 13:46-0400 Mean blood pressure 79 mm[Hg] MOLINA VALLE MD FACP [facility] 03-11-2023 15:07-0400 Body temperature 98.24 [degF] SUJATHA HERNANDEZ MANAGER PROFESSIONAL DEVELOPMENT-SPECIAL NEEDS TEACHER [facility] 03-11-2023 15:07-0400 Diastolic Blood Pressure Non-Invasive 78 1 SUJATHA HERNANDEZ MANAGER PROFESSIONAL DEVELOPMENT-SPECIAL NEEDS TEACHER [facility] 03-11-2023 15:07-0400 Heart rate 68 /min SUJATHA HERNANDEZ MANAGER PROFESSIONAL DEVELOPMENT-SPECIAL NEEDS TEACHER [facility] 03-11-2023 15:07-0400 Reason For Taking VItal Signs SUJATHA HERNANDEZ MANAGER PROFESSIONAL DEVELOPMENT-SPECIAL NEEDS TEACHER [facility] 03-11-2023 15:07-0400 Respiratory rate 18 /min SUJATHA HERNANDEZ MANAGER PROFESSIONAL DEVELOPMENT-SPECIAL NEEDS TEACHER [facility] 03-11-2023 15:07-0400 Systolic Blood Pressure Non-Invasive 119 1 SUJATHA HERNANDEZ MANAGER PROFESSIONAL DEVELOPMENT-SPECIAL NEEDS TEACHER [facility] 03-11-2023 11:06-0400 Body temperature 97.88 [degF] SUJATHA HERNANDEZ MANAGER PROFESSIONAL DEVELOPMENT-SPECIAL NEEDS TEACHER [facility] 03-11-2023 11:06-0400 Diastolic Blood Pressure Non-Invasive 76 1 SUJATHA HERNANDEZ MANAGER PROFESSIONAL DEVELOPMENT-SPECIAL NEEDS TEACHER [facility] 03-11-2023 11:06-0400 Heart rate 67 /min SUJATHA HERNANDEZ MANAGER PROFESSIONAL DEVELOPMENT-SPECIAL NEEDS TEACHER [facility] 03-11-2023 11:06-0400 Reason For Taking VItal Signs SUJATHA HERNANDEZ MANAGER PROFESSIONAL DEVELOPMENT-SPECIAL NEEDS TEACHER [facility] 03-11-2023 11:06-0400 Respiratory rate 18 /min SUJATHA HERNANDEZ MANAGER PROFESSIONAL DEVELOPMENT-SPECIAL NEEDS TEACHER [facility] 03-11-2023 11:06-0400 Systolic Blood Pressure Non-Invasive 106 1 SUJATHAANNETTE HERNANDEZ MANAGER PROFESSIONAL DEVELOPMENT-SPECIAL NEEDS TEACHER [facility] 03-11-2023 08:43-0400 Heart rate 66 /min SUJATHA DAVID MANAGER PROFESSIONAL DEVELOPMENT-SPECIAL NEEDS TEACHER [facility] 03-11-2023 08:05-0400 Body temperature 97.88 [degF] SUJATHA HERNANDEZ MANAGER PROFESSIONAL DEVELOPMENT-SPECIAL NEEDS TEACHER [facility] 03-11-2023 08:05-0400 Diastolic Blood Pressure Non-Invasive 97 1 SUJATHA HERNANDEZ MANAGER PROFESSIONAL DEVELOPMENT-SPECIAL NEEDS TEACHER [facility] 03-11-2023 08:05-0400 Heart rate 69 /min SUJATHA HERNANDEZ MANAGER PROFESSIONAL DEVELOPMENT-SPECIAL NEEDS TEACHER [facility] 03-11-2023 08:05-0400 Reason For Taking VItal Signs SUJATHA HERNANDEZ MANAGER PROFESSIONAL DEVELOPMENT-SPECIAL NEEDS TEACHER [facility] 03-11-2023 08:05-0400 Respiratory rate 18 /min SUJATHA HERNANDEZ MANAGER PROFESSIONAL DEVELOPMENT-SPECIAL NEEDS TEACHER [facility] 03-11-2023 08:05-0400 Systolic Blood Pressure Non-Invasive 137 1 SUJATHA DAVID MANAGER PROFESSIONAL DEVELOPMENT-SPECIAL NEEDS TEACHER [facility] 03-11-2023 03:26-0400 Heart rate 70 /min SUJATHA HERNANDEZ MANAGER PROFESSIONAL DEVELOPMENT-SPECIAL NEEDS TEACHER [facility] 03-10-2023 23:52-0400 Heart rate 63 /min SUJATHA HERNANDEZ MANAGER PROFESSIONAL DEVELOPMENT-SPECIAL NEEDS TEACHER [facility] 03-10-2023 06:25-0400 Heart rate 68 /min SJUATHA DAVID MANAGER PROFESSIONAL DEVELOPMENT-SPECIAL NEEDS TEACHER [facility] 03-08-2023 19:11-0400 Blood Pressure Cuff Size SUJATHA DAVID MANAGER PROFESSIONAL DEVELOPMENT-SPECIAL NEEDS TEACHER [facility] 03-08-2023 19:11-0400 Blood Pressure Location SUJATHA DAVID MANAGER PROFESSIONAL DEVELOPMENT-SPECIAL NEEDS TEACHER [facility] 03-08-2023 19:11-0400 Blood Pressure Method SUJATHA DAVID MANAGER PROFESSIONAL DEVELOPMENT-SPECIAL NEEDS TEACHER [facility] 03-08-2023 14:40-0400 Heart rate 70 /min SUJATHA HERNANDEZ MANAGER PROFESSIONAL DEVELOPMENT-SPECIAL NEEDS TEACHER [facility] 03-08-2023 10:59-0400 Heart rate 62 /min SUJATHA DAVID MANAGER PROFESSIONAL DEVELOPMENT-SPECIAL NEEDS TEACHER [facility] 03-07-2023 23:09-0400 Body height 160 cm SUJATHA DAVID MANAGER PROFESSIONAL DEVELOPMENT-SPECIAL NEEDS TEACHER [facility] 03-07-2023 23:09-0400 Body weight 98.1 kg SUJATHA DAVID MANAGER PROFESSIONAL DEVELOPMENT-SPECIAL NEEDS TEACHER [facility] 03-07-2023 23:09-0400 Body weight 38.32 kg/m2 SUJATHA DAVID MANAGER PROFESSIONAL DEVELOPMENT-SPECIAL NEEDS TEACHER [facility] 01-25-2023 15:45-0400 Body temperature 98.06 [degF] LETHA CID MD [facility] 01-25-2023 15:45-0400 Diastolic Blood Pressure Non-Invasive 78 1 LETHA CID MD [facility] 01-25-2023 15:45-0400 Heart rate 84 /min LETHA CID MD [facility] 01-25-2023 15:45-0400 Respiratory rate 20 /min LETHA CID MD [facility] 01-25-2023 15:45-0400 Systolic Blood Pressure Non-Invasive 136 1 LETHA CID MD [facility] 01-25-2023 14:09-0400 Diastolic Blood Pressure Non-Invasive 74 1 LETHA CID MD [facility] 01-25-2023 14:09-0400 Heart rate 59 /min LETHA CID MD [facility] 01-25-2023 14:09-0400 Respiratory rate 13 /min LETHA CID MD [facility] 01-25-2023 14:09-0400 Systolic Blood Pressure Non-Invasive 140 1 LETHA CID MD [facility] 01-25-2023 13:00-0400 Diastolic Blood Pressure Non-Invasive 79 1 LETHA CID MD [facility] 01-25-2023 13:00-0400 Heart rate 60 /min LETHA CID MD [facility] 01-25-2023 13:00-0400 Respiratory rate 16 /min LETHA CID MD [facility] 01-25-2023 13:00-0400 Systolic Blood Pressure Non-Invasive 135 1 LETHA CID MD [facility] 01-25-2023 10:30-0400 Blood Pressure Cuff Size LETHA CID MD [facility] 01-25-2023 10:30-0400 Blood Pressure Location LETHA CID MD [facility] 01-25-2023 10:30-0400 Blood Pressure Method LETHA CID MD [facility] 01-25-2023 10:30-0400 Body height 160 cm LETHA CID MD [facility] 01-25-2023 10:30-0400 Body temperature 97.88 [degF] LETHA CID MD [facility] 01-25-2023 10:30-0400 Body weight 90.1 kg LETHA CID MD [facility] 12-06-2022 22:41-0400 Diastolic Blood Pressure Non-Invasive 81 1 OPAL REICHFIELD DO [facility] 12-06-2022 22:41-0400 Heart rate 61 /min OPAL REICHFIELD DO [facility] 12-06-2022 22:41-0400 Respiratory rate 16 /min OPAL REICHFIELD DO [facility] 12-06-2022 22:41-0400 Systolic Blood Pressure Non-Invasive 130 1 OPAL REICHFIELD DO [facility] 12-06-2022 20:44-0400 Body temperature 98.06 [degF] OPAL REICHFIELD DO [facility] 12-06-2022 20:44-0400 Diastolic Blood Pressure Non-Invasive 82 1 OPAL REICHFIELD DO [facility] 12-06-2022 20:44-0400 Heart rate 77 /min OPAL REICHFIELD DO [facility] 12-06-2022 20:44-0400 Respiratory rate 18 /[facility] 12-06-2022 20:44-0400 Systolic Blood Pressure Non-Invasive 128 1 [facility] 11-13-2022 18:54-0500 Diastolic Blood Pressure Non-Invasive 75 1 ADINA WHITT MD [facility] 11-13-2022 18:54-0500 Heart rate 85 /min ADINA WHITT MD [facility] 11-13-2022 18:54-0500 Respiratory rate 18 /min ADINA WHITT MD [facility] 11-13-2022 18:54-0500 Systolic Blood Pressure Non-Invasive 145 1 ADNIA WHITT MD [facility] 11-13-2022 16:36-0500 Diastolic Blood Pressure Non-Invasive 92 1 ADINA WHITT MD [facility] 11-13-2022 16:36-0500 Heart rate 87 /min ADINA WHITT MD [facility] 11-13-2022 16:36-0500 Respiratory rate 18 /min ADINA WHITT MD [facility] 11-13-2022 16:36-0500 Systolic Blood Pressure Non-Invasive 126 1 ADINA WHITT MD [facility] 11-13-2022 14:57-0500 Body temperature 99.32 [degF] ADINA WHITT MD [facility] 11-13-2022 14:57-0500 Diastolic Blood Pressure Non-Invasive 105 1 ADINA WHITT MD [facility] 11-13-2022 14:57-0500 Heart rate 128 /min ADINA WHITT MD [facility] 11-13-2022 14:57-0500 Respiratory rate 18 /min ADINA WHITT MD [facility] 11-13-2022 14:57-0500 Systolic Blood Pressure Non-Invasive 152 1 ADINA WHITT MD [facility] 11-13-2022 00:02-0500 Diastolic Blood Pressure Non-Invasive [address] COLTON BAE MD [facility] 11-13-2022 00:02-0500 Heart rate 76 /min DR COLTON BAE MD [facility] 11-13-2022 00:02-0500 Respiratory rate 16 /min DR COLTON BAE MD [facility] 11-13-2022 00:02-0500 Systolic Blood Pressure Non-Invasive [address] COLTON BAE MD [facility] 11-12-2022 21:20-0500 Body height [address] COLTON BAE MD [facility] 11-12-2022 21:20-0500 Body temperature 98.24 [degF] DR COLTON BAE MD [facility] 11-12-2022 21:20-0500 Body weight [address] COLTON BAE MD [facility] 11-12-2022 21:20-0500 Diastolic Blood Pressure Non-Invasive [address] COLTON BAE MD [facility] 11-12-2022 21:20-0500 Heart rate 80 /min DR COLTON BAE MD [facility] 11-12-2022 21:20-0500 Respiratory rate 16 /min DR COLTON BAE MD [facility] 11-12-2022 21:20-0500 Systolic Blood Pressure Non-Invasive [address] COLTON BAE MD [facility] 10-19-2022 20:20-0500 Diastolic Blood Pressure Non-Invasive 81 1 MOLINA DURESKA DO [facility] 10-19-2022 20:20-0500 Heart rate 70 /min MOLINA DURESKA DO [facility] 10-19-2022 20:20-0500 Reason For Taking VItal Signs MOLINA DURESKA DO [facility] 10-19-2022 20:20-0500 Respiratory rate 16 /min MOLINA DURESKA DO [facility] 10-19-2022 20:20-0500 Systolic Blood Pressure Non-Invasive 141 1 MOLINA DURESKA DO [facility] 10-19-2022 18:53-0500 Diastolic Blood Pressure Non-Invasive 84 1 MOLINA DURESKA DO [facility] 10-19-2022 18:53-0500 Heart rate 72 /min MOLINA DURESKA DO [facility] 10-19-2022 18:53-0500 Reason For Taking VItal Signs MOLIAN DURESKA DO [facility] 10-19-2022 18:53-0500 Respiratory rate 18 /min MOLINA DURESKA DO [facility] 10-19-2022 18:53-0500 Systolic Blood Pressure Non-Invasive 148 1 MOLINA QUIROZ DO [facility] 10-19-2022 17:19-0500 Diastolic Blood Pressure Non-Invasive 84 1 MOLINA QUIROZ DO [facility] 10-19-2022 17:19-0500 Heart rate 70 /min MOLINA QUIROZ DO [facility] 10-19-2022 17:19-0500 Reason For Taking VItal Signs MOLINA QUIROZ DO [facility] 10-19-2022 17:19-0500 Respiratory rate 18 /min MOLINA QUIROZ DO [facility] 10-19-2022 17:19-0500 Systolic Blood Pressure Non-Invasive 147 1 MOLINA QUIROZ DO [facility] 10-19-2022 11:32-0500 Body temperature 96.98 [degF] MOLINA QUIROZ DO [facility] 10-19-2022 11:32-0500 Body weight 90.9 kg MOLINA QUIROZ DO [facility] 10-18-2022 18:36-0500 Diastolic Blood Pressure Non-Invasive 57 1 YOANA WEAVER MD [facility] 10-18-2022 18:36-0500 Heart rate 70 /min YOANA WEAVER MD [facility] 10-18-2022 18:36-0500 Respiratory rate 16 /min YOANA WEAVER MD [facility] 10-18-2022 18:36-0500 Systolic Blood Pressure Non-Invasive 104 1 YOANA WEAVER MD [facility] 10-18-2022 12:11-0500 Body height 160 cm YOANA WEAVER MD [facility] 10-18-2022 12:11-0500 Body temperature 98.78 [degF] YOANA WEAVER MD [facility] 10-18-2022 12:11-0500 Body weight 93.2 kg YOANA WEAVER MD [facility] 10-18-2022 12:11-0500 Diastolic Blood Pressure Non-Invasive 82 1 YOANA WEAVER MD [facility] 10-18-2022 12:11-0500 Heart rate 64 /min YOANA WEAVER MD [facility] 10-18-2022 12:11-0500 Respiratory rate 18 /min YOANA WEAVER MD [facility] 10-18-2022 12:11-0500 Systolic Blood Pressure Non-Invasive 113 1 YOANA WEAVER MD [facility] 07-27-2022 15:20-0500 Diastolic blood pressure 88 mm[Hg] WAQAR BOYLE MD [facility] 07-27-2022 15:20-0500 Heart rate 74 /min WAQAR BOYLE MD [facility] 07-27-2022 15:20-0500 Reason For Taking VItal Signs WAQAR BOYLE MD [facility] 07-27-2022 15:20-0500 Respiratory rate 16 /min WAQAR BOYLE MD [facility] 07-27-2022 15:20-0500 Systolic blood pressure 131 mm[Hg] WAQAR BOYLE MD [facility] 07-27-2022 14:16-0500 Diastolic blood pressure 92 mm[Hg] WAQAR BOYLE MD [facility] 07-27-2022 14:16-0500 Systolic blood pressure 131 mm[Hg] WAQAR BOYLE MD [facility] 07-27-2022 13:22-0500 Diastolic blood pressure 50 mm[Hg] WAQAR BOYLE MD [facility] 07-27-2022 13:22-0500 Systolic blood pressure 96 mm[Hg] WAQAR BOYLE MD [facility] 07-27-2022 13:07-0500 Heart rate 77 /min WAQAR BOYLE MD [facility] 07-27-2022 13:07-0500 Respiratory rate 16 /min WAQAR BOYLE MD [facility] 07-27-2022 09:16-0500 Body temperature 97.7 [degF] WAQAR BOYLE MD [facility] 07-27-2022 09:16-0500 Body weight 95 kg WAQAR BOYLE MD [facility] 07-27-2022 09:16-0500 Heart rate 85 /min WAQAR BOYLE MD [facility] 07-27-2022 09:16-0500 Respiratory rate 20 /min WAQAR BOYLE MD [facility] 06-22-2022 09:03-0400 Reason For Taking VItal Signs JUWAN BELTRAN MD [facility] 06-22-2022 08:47-0400 Heart rate 66 /min JUWAN BELTRAN MD [facility] 06-22-2022 08:47-0400 Reason For Taking VItal Signs JUWAN BELTRAN MD [facility] 06-22-2022 06:54-0400 Body temperature 98.42 [degF] JUWAN BELTRAN MD [address] [place] [address] 06-22-2022 06:54-0400 Diastolic blood pressure 75 mm[Hg] JUWAN BELTRAN MD [address] [place] [address] 06-22-2022 06:54-0400 Heart rate 59 /min JUWAN BELTRAN MD [address] [place] [address] 06-22-2022 06:54-0400 Mean blood pressure 87 mm[Hg] JUWAN BELTRAN MD [address] [place] [address] 06-22-2022 06:54-0400 Reason For Taking VItal Signs JUWAN BELTRAN MD [address] [place] [address] 06-22-2022 06:54-0400 Respiratory rate 18 /min JUWAN BELTRAN MD [address] [place] [address] 06-22-2022 06:54-0400 Systolic blood pressure 112 mm[Hg] JUWAN BELTRAN MD [address] [place] [address] 06-22-2022 04:17-0400 Body temperature 98.42 [degF] JUWAN BELTRAN MD [address] [place] [address] 06-22-2022 04:17-0400 Diastolic blood pressure 74 mm[Hg] JUWAN BELTRAN MD [address] [place] [address] 06-22-2022 04:17-0400 Heart rate 62 /min JUWAN BELTRAN MD [address] [place] [address] 06-22-2022 04:17-0400 Systolic blood pressure 120 mm[Hg] JUWAN BELTRAN MD [address] [place] [address] 06-21-2022 23:55-0400 Body temperature 98.42 [degF] JUWAN BELTRAN MD [address] [place] [address] 06-21-2022 23:55-0400 Diastolic blood pressure 67 mm[Hg] JUWAN BELTRAN MD [address] [place] [address] 06-21-2022 23:55-0400 Heart rate 64 /min JUWAN BELTRAN MD [address] [place] [address] 06-21-2022 23:55-0400 Respiratory rate 18 /min JUWAN BELTRAN MD [address] 06-21-2022 23:55-0400 Systolic blood pressure 123 mm[Hg] JUWAN BELTRAN MD [address] 06-21-2022 19:26-0400 Mean blood pressure 83 mm[Hg] JUWAN BELTRAN MD [address] 06-21-2022 19:26-0400 Respiratory rate 18 /min JUWAN BELTRAN MD [address] 06-21-2022 16:34-0400 Heart rate 64 /min JUWAN BELTRAN MD [address] 06-21-2022 10:17-0400 Heart rate 64 /min JUWAN BELTRAN MD [address] 06-21-2022 08:17-0400 Heart rate 68 /min JUWAN BELTRAN MD [address] 06-21-2022 07:09-0400 Heart rate 65 /min JUWAN BELTRAN MD [address] [place] [address] 06-20-2022 14:21-0400 Heart rate 62 /min JUWAN BELTRAN MD [address] 06-19-2022 07:48-0400 Mean blood pressure 89 mm[Hg] JUWAN BELTRAN MD [address] [place] [address] 06-17-2022 20:28-0400 Body height 160 cm JUWAN BELTRAN MD [address] [place] [address] 06-17-2022 20:28-0400 Body weight 98 kg JUWAN BELTRAN MD [facility] 06-17-2022 20:28-0400 Body weight 38.28 kg/m2 JUWAN BELTRAN MD [facility] 06-17-2022 09:50-0400 Body weight 98 kg JUWAN BELTRAN MD [facility] 06-17-2022 07:34-0400 Diastolic blood pressure 86 mm[Hg] LAURA PAINTING MD [facility] 06-17-2022 07:34-0400 Heart rate 81 /min LAURA PAINTING MD [facility] 06-17-2022 07:34-0400 Reason For Taking VItal Signs LAURA PAINTING MD [facility] 06-17-2022 07:34-0400 Respiratory rate 18 /min LAURA PAINTING MD [facility] 06-17-2022 07:34-0400 Systolic blood pressure 101 mm[Hg] LAURA PAINTING MD [facility] 06-17-2022 07:11-0400 Diastolic blood pressure 63 mm[Hg] LAURA PAINTING MD [facility] 06-17-2022 07:11-0400 Heart rate 68 /min LAURA PAINTING MD [facility] 06-17-2022 07:11-0400 Reason For Taking VItal Signs LAURA PAINTING MD [facility] 06-17-2022 07:11-0400 Respiratory rate 16 /min LAURA PAINTING MD [facility] 06-17-2022 07:11-0400 Systolic blood pressure 101 mm[Hg] LAURA PAINTING MD [facility] 06-17-2022 04:02-0400 Body temperature 98.24 [degF] LAURA PAINTING MD [facility] 06-17-2022 04:02-0400 Diastolic blood pressure 95 mm[Hg] LAURA PAINTING MD [facility] 06-17-2022 04:02-0400 Heart rate 90 /min LAURA PAINTING MD [facility] 06-17-2022 04:02-0400 Respiratory rate 18 /min LAURA PAINTING MD [facility] 06-17-2022 04:02-0400 Systolic blood pressure 131 mm[Hg] LAURA PAINTING MD [facility] 04-12-2022 11:00-0400 Body height 160 cm SHARLENE CALIXTO DO [facility] 04-12-2022 11:00-0400 Body temperature 97.7 [degF] SHARLENE CALIXTO DO [facility] 04-12-2022 11:00-0400 Body weight 91 kg SHARLENE CALIXTO DO [facility] 04-12-2022 11:00-0400 Diastolic blood pressure 93 mm[Hg] SHARLENE CALIXTO DO [facility] 04-12-2022 11:00-0400 Heart rate 91 /min SHARLENE CALIXTO DO [facility] 04-12-2022 11:00-0400 Respiratory rate 16 /min SHARLENE MARILY DO [facility] 04-12-2022 11:00-0400 Systolic blood pressure 138 mm[Hg] SHARLENE CALIXTO DO [facility] 03-10-2022 18:00-0400 Diastolic blood pressure 80 mm[Hg] ADINA WHITT MD [facility] 03-10-2022 18:00-0400 Heart rate 94 /min ADINA WHITT MD [facility] 03-10-2022 18:00-0400 Mean blood pressure 92 mm[Hg] ADINA WHITT MD [facility] 03-10-2022 18:00-0400 Systolic blood pressure 116 mm[Hg] ADINA WHITT MD [facility] 03-10-2022 15:57-0400 Body temperature 98.06 [degF] ADINA WHITT MD [facility] 03-10-2022 15:57-0400 Body weight 90.7 kg ADINA WHITT MD [facility] 03-10-2022 15:57-0400 Diastolic blood pressure 85 mm[Hg] ADINA WHITT MD [facility] 03-10-2022 15:57-0400 Heart rate 99 /min ADINA WHITT MD [facility] 03-10-2022 15:57-0400 Mean blood pressure 96 mm[Hg] ADINA WHITT MD [facility] 03-10-2022 15:57-0400 Respiratory rate 16 /min ADINA WHITT MD [facility] 03-10-2022 15:57-0400 Systolic blood pressure 119 mm[Hg] ADINA WHITT MD [facility] 02-11-2022 22:30-0400 Diastolic blood pressure 65 mm[Hg] QUOC GOMEZ MD [facility] 02-11-2022 22:30-0400 Heart rate 66 /min QUOC GOMEZ MD [facility] 02-11-2022 22:30-0400 Respiratory rate 16 /min QUOC GOMEZ MD [facility] 02-11-2022 22:30-0400 Systolic blood pressure 102 mm[Hg] QUOC GOMEZ MD [facility] 02-11-2022 22:15-0400 Diastolic blood pressure 66 mm[Hg] QUOC GOMEZ MD [facility] 02-11-2022 22:15-0400 Heart rate 64 /min QUOC GOMEZ MD [facility] 02-11-2022 22:15-0400 Mean blood pressure 77 mm[Hg] QUOC GOMEZ MD [facility] 02-11-2022 22:15-0400 Respiratory rate 20 /min QUOC GOMEZ MD [facility] 02-11-2022 22:15-0400 Systolic blood pressure 100 mm[Hg] QUOC GOMEZ MD [facility] 02-11-2022 21:10-0400 Diastolic blood pressure 84 mm[Hg] QUOC GOMEZ MD [facility] 02-11-2022 21:10-0400 Heart rate 75 /min QUOC GOMEZ MD [facility] 02-11-2022 21:10-0400 Mean blood pressure 95 mm[Hg] QUOC GOMEZ MD [facility] 02-11-2022 21:10-0400 Respiratory rate 20 /min QUOC GOMEZ MD [facility] 02-11-2022 21:10-0400 Systolic blood pressure 116 mm[Hg] QUOC GOMEZ MD [facility] 02-11-2022 18:32-0400 Body height 162.5 cm QUOC GOMEZ MD [facility] 02-11-2022 18:32-0400 Body temperature 98.24 [degF] QUOC GOMEZ MD [facility] 02-11-2022 18:32-0400 Body weight 90.9 kg QUOC GOMEZ MD [facility] 02-02-2022 21:54-0400 Diastolic blood pressure 78 mm[Hg] DR ALEXEY CHEEK DO [facility] 02-02-2022 21:54-0400 Heart rate 61 /min DR ALEXEY CHEEK DO [facility] 02-02-2022 21:54-0400 Reason For Taking VItal Signs DR ALEEXY CHEEK DO [facility] 02-02-2022 21:54-0400 Respiratory rate 16 /min DR ALEXEY CHEEK DO [facility] 02-02-2022 21:54-0400 Systolic blood pressure 100 mm[Hg] DR ALEXEY CHEEK DO [facility] 02-02-2022 18:35-0400 Body temperature 98.42 [degF] DR ALEXEY CHEEK DO [facility] 02-02-2022 18:35-0400 Body weight 114.[address] ALEXEY CHEEK DO [facility] 02-02-2022 18:35-0400 Diastolic blood pressure 58 mm[Hg] DR ALEXEY CHEEK DO [facility] 02-02-2022 18:35-0400 Heart rate 92 /min DR ALEXEY CHEEK DO [facility] 02-02-2022 18:35-0400 Respiratory rate 20 /min DR ALEXEY CHEEK DO [facility] 02-02-2022 18:35-0400 Systolic blood pressure 114 mm[Hg] DR ALEXEY RIDER DO [facility] 10-28-2021 10:24-0500 Diastolic blood pressure 72 mm[Hg] DR JIM LEIGH MD [facility] 10-28-2021 10:24-0500 Heart rate 68 /min DR JIM LEIGH MD [facility] 10-28-2021 10:24-0500 Mean blood pressure 89 mm[Hg] DR JIM LEIGH MD [facility] 10-28-2021 10:24-0500 Respiratory rate 16 /min DR JIM LEIGH MD [facility] 10-28-2021 10:24-0500 Systolic blood pressure 122 mm[Hg] DR JIM LEIGH MD [facility] 10-28-2021 08:36-0500 Body temperature 98.24 [degF] DR JIM LEIGH MD [facility] 10-28-2021 08:36-0500 Diastolic blood pressure 74 mm[Hg] DR JIM LEIGH MD [facility] 10-28-2021 08:36-0500 Heart rate 66 /min DR JIM LEIGH MD [facility] 10-28-2021 08:36-0500 Mean blood pressure 89 mm[Hg] DR JIM LEIGH MD [facility] 10-28-2021 08:36-0500 Respiratory rate 16 /min DR JIM LEIGH MD [facility] 10-28-2021 08:36-0500 Systolic blood pressure 119 mm[Hg] DR JIM LEIGH MD [facility] 09-24-2021 15:58-0500 Body temperature 97.88 [degF] ANDREEA HARPER MANAGER PROFESSIONAL DEVELOPMENT-SPECIAL NEEDS TEACHER [facility] 09-24-2021 15:58-0500 Diastolic blood pressure 52 mm[Hg] ANDREEA HARPER MANAGER PROFESSIONAL DEVELOPMENT-SPECIAL NEEDS TEACHER [facility] 09-24-2021 15:58-0500 Heart rate 64 /min ANDREEA HARPER MANAGER PROFESSIONAL DEVELOPMENT-SPECIAL NEEDS TEACHER [facility] 09-24-2021 15:58-0500 Mean blood pressure 68 mm[Hg] ANDREEA HARPER MANAGER PROFESSIONAL DEVELOPMENT-SPECIAL NEEDS TEACHER [facility] 09-24-2021 15:58-0500 Reason For Taking VItal Signs ANDREEA HARPER MANAGER PROFESSIONAL DEVELOPMENT-SPECIAL NEEDS TEACHER [facility] 09-24-2021 15:58-0500 Respiratory rate 12 /min ANDREEA HARPER MANAGER PROFESSIONAL DEVELOPMENT-SPECIAL NEEDS TEACHER [facility] 09-24-2021 15:58-0500 Systolic blood pressure 99 mm[Hg] ANDREEA HERNANSAMANTHANATIVIDAD MANAGER PROFESSIONAL DEVELOPMENT-SPECIAL NEEDS TEACHER [facility] 09-24-2021 11:33-0500 Body temperature 98.6 [degF] ANDREEA BECERRASAMANTHANATIVIDAD MANAGER PROFESSIONAL DEVELOPMENT-SPECIAL NEEDS TEACHER [facility] 09-24-2021 11:33-0500 Diastolic blood pressure 50 mm[Hg] ANDREEA ROMERONATIVIDAD MANAGER PROFESSIONAL DEVELOPMENT-SPECIAL NEEDS TEACHER [facility] 09-24-2021 11:33-0500 Heart rate 70 /min ANDREEA ROMERONATIVIDAD MANAGER PROFESSIONAL DEVELOPMENT-SPECIAL NEEDS TEACHER [facility] 09-24-2021 11:33-0500 Mean blood pressure 64 mm[Hg] ANDREEA ROMERONATIVIDAD MANAGER PROFESSIONAL DEVELOPMENT-SPECIAL NEEDS TEACHER [facility] 09-24-2021 11:33-0500 Reason For Taking VItal Signs ANDREEA BECERRASAMANTHANATIVIDAD MANAGER PROFESSIONAL DEVELOPMENT-SPECIAL NEEDS TEACHER [facility] 09-24-2021 11:33-0500 Respiratory rate 12 /min ANDREEA ROMERONATIVIDAD MANAGER PROFESSIONAL DEVELOPMENT-SPECIAL NEEDS TEACHER [facility] 09-24-2021 11:33-0500 Systolic blood pressure 91 mm[Hg] ANDREEA ROMERONATIVIDAD MANAGER PROFESSIONAL DEVELOPMENT-SPECIAL NEEDS TEACHER [facility] 09-24-2021 11:18-0500 Respiratory rate 18 /min ANDREEA HARPER MANAGER PROFESSIONAL DEVELOPMENT-SPECIAL NEEDS TEACHER [facility] 09-24-2021 10:47-0500 Heart rate 74 /min ANDREEA ROMERONATIVIDAD MANAGER PROFESSIONAL DEVELOPMENT-SPECIAL NEEDS TEACHER [facility] 09-24-2021 09:07-0500 Body temperature 98.24 [degF] ANDREEA ROMERONATIVIDAD MANAGER PROFESSIONAL DEVELOPMENT-SPECIAL NEEDS TEACHER [facility] 09-24-2021 09:07-0500 Diastolic blood pressure 64 mm[Hg] ANDREEA ROMERONATIVIDAD MANAGER PROFESSIONAL DEVELOPMENT-SPECIAL NEEDS TEACHER [facility] 09-24-2021 09:07-0500 Heart rate 78 /min ANDREEA ROMERONATIVIDAD MANAGER PROFESSIONAL DEVELOPMENT-SPECIAL NEEDS TEACHER [facility] 09-24-2021 09:07-0500 Reason For Taking VItal Signs ANDREEA ROMERONATIVIDAD MANAGER PROFESSIONAL DEVELOPMENT-SPECIAL NEEDS TEACHER [facility] 09-24-2021 09:07-0500 Systolic blood pressure 100 mm[Hg] ANDREEA ROMERONATIVIDAD MANAGER PROFESSIONAL DEVELOPMENT-SPECIAL NEEDS TEACHER [facility] 09-24-2021 04:39-0500 Heart rate 81 /min ANDREEA HARPER MANAGER PROFESSIONAL DEVELOPMENT-SPECIAL NEEDS TEACHER [facility] 09-23-2021 22:59-0500 Heart rate 73 /min ANDREEA HARPER MANAGER PROFESSIONAL DEVELOPMENT-SPECIAL NEEDS TEACHER [facility] 09-23-2021 22:10-0500 Heart rate 72 /min ANDREEA HARPER MANAGER PROFESSIONAL DEVELOPMENT-SPECIAL NEEDS TEACHER [facility] 09-23-2021 16:39-0500 Mean blood pressure 85 mm[Hg] ANDREEA NICKNATIVIDAD MANAGER PROFESSIONAL DEVELOPMENT-SPECIAL NEEDS TEACHER [facility] 09-23-2021 12:28-0500 Heart rate 82 /min ANDREEA ROMERONATIVIDAD MANAGER PROFESSIONAL DEVELOPMENT-SPECIAL NEEDS TEACHER [facility] 09-23-2021 10:34-0500 Heart rate 72 /min ANDREEA BECERRASAMANTHANATIVIDAD MANAGER PROFESSIONAL DEVELOPMENT-SPECIAL NEEDS TEACHER [facility] 09-22-2021 22:52-0500 Body height 160 cm ANDREEA BECERRASAMANTHANATIVIDAD MANAGER PROFESSIONAL DEVELOPMENT-SPECIAL NEEDS TEACHER [facility] 09-22-2021 22:52-0500 Body weight 92 kg ANDREEA BECERRASAMANTHANATIVIDAD MANAGER PROFESSIONAL DEVELOPMENT-SPECIAL NEEDS TEACHER [facility] 09-22-2021 22:52-0500 Body weight 35.94 kg/m2 ANDREEA BECERRASAMANTHANATIVIDAD MANAGER PROFESSIONAL DEVELOPMENT-SPECIAL NEEDS TEACHER [facility] 09-09-2021 14:43-0500 Diastolic blood pressure 98 mm[Hg] LAURA PAINTING MD [facility] 09-09-2021 14:43-0500 Heart rate 114 /min LAURA PAINTING MD [facility] 09-09-2021 14:43-0500 Respiratory rate 18 /min LAURA PAINTING MD [facility] 09-09-2021 14:43-0500 Systolic blood pressure 138 mm[Hg] LAURA PAINTING MD [facility] 09-09-2021 13:42-0500 Diastolic blood pressure 84 mm[Hg] LAURA PAINTING MD [facility] 09-09-2021 13:42-0500 Heart rate 82 /min LAURA PAINTING MD [facility] 09-09-2021 13:42-0500 Respiratory rate 18 /min LAURA PAINTING MD [facility] 09-09-2021 13:42-0500 Systolic blood pressure 128 mm[Hg] LAURA PAINTING MD [facility] 09-09-2021 12:16-0500 Body height 160 cm LAURA PAINTING MD [facility] 09-09-2021 12:16-0500 Body temperature 98.24 [degF] LAURA PAINTING MD [facility] 09-09-2021 12:16-0500 Body weight 91 kg LAURA PAINTING MD [facility] 09-09-2021 12:16-0500 Diastolic blood pressure 80 mm[Hg] LAURA PAINTING MD [facility] 09-09-2021 12:16-0500 Heart rate 86 /min LAURA PAINTING MD [facility] 09-09-2021 12:16-0500 Respiratory rate 20 /min LAURA PAINTING MD [facility] 09-09-2021 12:16-0500 Systolic blood pressure 120 mm[Hg] LAURA PAINTING MD [facility] 08-06-2021 17:10-0500 Diastolic blood pressure 74 mm[Hg] DR COLTON BAE MD [facility] 08-06-2021 17:10-0500 Heart rate 62 /min DR COLTON BAE MD [facility] 08-06-2021 17:10-0500 Reason For Taking VItal Signs DR COLTON BAE MD [facility] 08-06-2021 17:10-0500 Respiratory rate 18 /min DR COLTON BAE MD [facility] 08-06-2021 17:10-0500 Systolic blood pressure 100 mm[Hg] DR COLTON BAE MD [facility] 08-06-2021 14:31-0500 Body temperature 98.06 [degF] DR COLTON BAE MD [facility] 08-06-2021 14:31-0500 Body weight [address] COLTON BAE MD [facility] 08-06-2021 14:31-0500 Diastolic blood pressure 71 mm[Hg] DR COLTON BAE MD [facility] 08-06-2021 14:31-0500 Heart rate 80 /min DR COLTON BAE MD [facility] 08-06-2021 14:31-0500 Respiratory rate 18 /min DR OCLTON BAE MD [facility] 08-06-2021 14:31-0500 Systolic blood pressure 108 mm[Hg] DR COLTON BAE MD [facility] 07-31-2021 10:28-0500 Body temperature 97.52 [degF] BINU JARRODMELT DO [facility] 07-31-2021 10:28-0500 Diastolic blood pressure 79 mm[Hg] BINU FROMMELT DO [facility] 07-31-2021 10:28-0500 Heart rate 75 /min BINU FROMMELT DO [facility] 07-31-2021 10:28-0500 Respiratory rate 16 /min BINU FROMMELT DO [facility] 07-31-2021 10:28-0500 Systolic blood pressure 127 mm[Hg] BINU FALK DO [facility] 07-02-2021 13:03-0400 Diastolic blood pressure 66 mm[Hg] DR JIM LEIGH MD [facility] 07-02-2021 13:03-0400 Heart rate 58 /min DR JIM LEIGH MD [facility] 07-02-2021 13:03-0400 Respiratory rate 17 /min DR JIM LEIGH MD [facility] 07-02-2021 13:03-0400 Systolic blood pressure 114 mm[Hg] DR JIM LEIGH MD [facility] 07-02-2021 12:33-0400 Diastolic blood pressure 72 mm[Hg] DR JIM LEIGH MD [facility] 07-02-2021 12:33-0400 Heart rate 56 /min DR JIM LEIGH MD [facility] 07-02-2021 12:33-0400 Respiratory rate 16 /min DR JIM LEIGH MD [facility] 07-02-2021 12:33-0400 Systolic blood pressure 118 mm[Hg] DR JIM LEIGH MD [facility] 07-02-2021 12:01-0400 Diastolic blood pressure 78 mm[Hg] DR JIM LEIGH MD [facility] 07-02-2021 12:01-0400 Heart rate 55 /min DR JIM LEIGH MD [facility] 07-02-2021 12:01-0400 Respiratory rate 16 /min DR JIM LEIGH MD [facility] 07-02-2021 12:01-0400 Systolic blood pressure 110 mm[Hg] DR JIM LEIGH MD [facility] 07-02-2021 09:50-0400 Body height [address] JIM LEIGH MD [facility] 07-02-2021 09:50-0400 Body temperature 98.24 [degF] DR JIM LEIGH MD [facility] 07-02-2021 09:50-0400 Body weight [address] JIM LEIGH MD [facility] 07-02-2021 09:50-0400 Heart rate 56 /min DR JIM LEIGH MD [facility] Encounters Encounter Date Encounter Type Care Provider Facility Start: 06-16-2024 End: 06-16-2024 Patient encounter procedure Odilia Gunn APRN.CNP Work Phone: [facility] Comment on above: Urinary frequency (P rimary Dx); Flank pain Start: 06-11-2024 End: 06-12-2024 Telephone encounter Laury Orr KESHIA Work Phone: OB/Gynecology Comment on above: Patient Update Start: 06-08-2024 End: 06-08-2024 ambulatory LAURY ORR Facility:[facility] Start: 06-08-2024 End: 06-08-2024 Patient encounter procedure Laury Orr MANAGER PROFESSIONAL DEVELOPMENT.SPECIAL NEEDS TEACHER Work Phone: OB/Gynecology Comment on above: Vulvar lesion (Prima ry Dx); Vulvar mass Start: 06-06-2024 End: 06-06-2024 ambulatory [place] Start: 06-04-2024 End: 06-04-2024 Emergency department patient visit [facility] Start: 05-31-2024 End: 05-31-2024 ambulatory LYNN MAIER Facility:[facility] Start: 05-31-2024 End: 05-31-2024 Patient encounter procedure Lynn Maier MD Work Phone: OB/Gynecology Comment on above: Vulvar skin tag (Scarlet lily Dx); Vaginal yeast infection Start: 05-30-2024 End: 05-30-2024 Emergency department patient visit [facility] Start: 05-30-2024 End: 05-30-2024 ambulatory [facility] Start: 05-28-2024 End: 05-28-2024 Emergency department patient visit [facility] Start: 05-23-2024 End: 05-23-2024 ambulatory [place] Start: 05-15-2024 End: 05-15-2024 Emergency department patient visit [facility] Start: 05-09-2024 End: 05-09-2024 ambulatory [place] Start: 04-27-2024 End: 04-27-2024 ambulatory [place] Start: 04-21-2024 End: 04-21-2024 Emergency department patient visit [facility] Start: 04-12-2024 End: 04-13-2024 Emergency department patient visit [facility] Start: 04-09-2024 End: 04-09-2024 ambulatory COLTON Almaraz [facility] Start: 04-03-2024 End: 04-03-2024 Emergency department patient visit [facility] Start: 03-30-2024 End: 03-30-2024 Emergency department patient visit THANG Anjel HUNTER [facility] Start: 03-30-2024 End: 03-30-2024 ambulatory [facility] Start: 03-28-2024 End: 03-28-2024 ambulatory [facility] Start: 03-28-2024 End: 03-28-2024 ambulatory [place] Start: 03-21-2024 ambulatory CJ RIVERA MANAGER PROFESSIONAL DEVELOPMENT-SPECIAL NEEDS TEACHER Facility:B Start: 03-17-2024 End: 03-24-2024 Evaluation and management of inpatient COLTON Almaraz [facility] Start: 03-16-2024 End: 03-17-2024 Evaluation and management of inpatient URBANO HALL FATOU [facility] Start: 03-14-2024 End: 03-14-2024 ambulatory [facility] Start: 03-14-2024 End: 03-14-2024 ambulatory [place] Start: 03-11-2024 End: 03-11-2024 Emergency department patient visit [facility] Start: 03-05-2024 End: 03-06-2024 ambulatory NANCY AGRAWAL [facility] Start: 03-05-2024 End: 03-05-2024 Subsequent hospital visit by physician Baljinder [id number] Holter/Ecg Resource [facility] Comment on above: Arrived Start: 03-05-2024 End: 03-05-2024 Emergency department patient visit CJ RIVERA [facility] Comment on above: History of epistaxis (Primary Dx); Hematemesis, unspecified whether nausea present; Anticoagulated Start: 02-27-2024 End: 03-02-2024 Evaluation and management of inpatient Mike Land MD Work Phone: [facility] 3 Comment on above: Idiopathic chronic p ancreatitis (Multi) (Primary Dx); Pulmonary embolism on right (Multi); Single subsegmental pulmonary embolism without acute cor pulmonale (Multi); Pulmonary embolism (Multi); Swelling of extremity; Anticoagulant long-term use Start: 02-15-2024 End: 02-21-2024 Evaluation and management of inpatient [facility] Start: 02-15-2024 End: 02-19-2024 ambulatory CJ RIVERA APRN-HAMLET Facility:B Start: 02-15-2024 End: 02-19-2024 Outreach Lab CJ RIVERA APRN-HAMLET [facility] Start: 02-15-2024 End: 02-15-2024 ambulatory [place] Start: 02-04-2024 End: 02-08-2024 Evaluation and management of inpatient [facility] Start: 02-02-2024 End: 02-02-2024 Office outpatient new 30 minutes Tianna Rasmussen MD Work Phone: [facility] Comment on above: Generalized abdomina l pain (Primary Dx); Chronic pancreatitis, unspecified pancreatitis type (Multi) Start: 02-02-2024 End: 02-02-2024 ambulatory [place] Start: 01-18-2024 End: 01-18-2024 ambulatory CJ RIVERA APRN-HAMLET Facility:[facility] Start: 01-18-2024 End: 01-18-2024 Patient encounter procedure JC RIVERA APRN-HAMLET [facility] Start: 01-18-2024 End: 01-18-2024 ambulatory [place] Start: 01-04-2024 End: 01-04-2024 ambulatory [place] Start: 12-21-2023 End: 12-21-2023 ambulatory [place] Start: 12-18-2023 End: 12-18-2023 ambulatory NANCY ARROYO MD Facility:[facility] Start: 12-05-2023 End: 12-08-2023 ambulatory [facility] Start: 12-05-2023 End: 12-08-2023 Evaluation and management of inpatient Nancy Agrawal MD Work Phone: [facility] [place] Comment on above: Generalized abdomina l pain (Primary Dx); Pseudocyst of pancreas; Factor V deficiency (CMS/HCC); Acute embolism and thrombosis of unspecified deep veins of distal lower extremity, bilateral (CMS/HCC); Palpitations; Factor 5 Leiden mutation, heterozygous (CMS/HCC) Start: 12-05-2023 End: 12-05-2023 Subsequent hospital visit by physician Uvaldo Chavez MD Work Phone: [facility] Comment on above: Other chronic pancre atitis (CMS/HCC) Start: 12-05-2023 End: 12-05-2023 ambulatory UVALDO Singletary [facility] [place] [facility] Start: 11-23-2023 End: 11-23-2023 ambulatory [place] Start: 11-10-2023 End: 11-10-2023 Emergency department patient visit LYNN CHANDLER [facility] Start: 11-10-2023 End: 11-15-2023 Evaluation and management of inpatient Chi Galvin MD Work Phone: [facility] [place] Comment on above: Pseudocyst of pancre as (Primary Dx); Chronic pancreatitis, unspecified pancreatitis type (CMS/HCC); Right ear impacted cerumen Start: 11-09-2023 End: 11-09-2023 Subsequent hospital visit by physician Fortunato [facility] Comment on above: Chronic pancreatitis , unspecified pancreatitis type (CMS/HCC) Start: 11-09-2023 End: 11-09-2023 ambulatory COLTON Almaraz [facility] Start: 11-09-2023 End: 11-09-2023 ambulatory [place] Start: 11-04-[address] MARGIE SOTO DO Fac ility:B Start: 11-04-2023 End: 11-04-[address] MARGIE SOTO DO Facility:B Start: 11-04-2023 End: 11-04-[address] MARGIE SOTO DO [facility] Start: 10-27-2023 End: 10-27-2023 Office outpatient visit 25 minutes Tianna Rasmussen MD Work Phone: [facility] Comment on above: Chronic pancreatitis , unspecified pancreatitis type (CMS/HCC) (Primary Dx); Generalized abdominal pain Start: 10-27-2023 End: 10-27-2023 ambulatory [place] Start: 10-18-2023 End: 10-18-[address] MARGIE SOTO DO Facility:B Start: 10-18-2023 End: 10-18-2023 Subsequent hospital visit by physician Baljinder Ir 2 [facility] Comment on above: Poor intravenous acc ess Start: 10-18-2023 End: 10-18-2023 ambulatory SHANTELL ROSSI [facility] Start: 10-17-2023 End: 10-17-2023 Emergency department patient visit ADINA WHITT MD [facility] Start: 10-12-2023 End: 10-12-2023 ambulatory [place] Start: 10-12-2023 End: 10-12-2023 ambulatory COLTON Almaraz [facility] Start: 09-28-2023 End: 09-28-2023 ambulatory [place] Start: 09-06-2023 End: 09-06-2023 ambulatory [place] Start: 08-26-2023 End: 08-26-2023 Subsequent hospital visit by physician Baljinder Ir 1 [facility] Comment on above: Poor intravenous acc ess Start: 08-26-2023 End: 08-26-2023 ambulatory [facility] Start: 08-23-2023 End: 08-23-2023 ambulatory [place] Start: 08-09-2023 End: 08-13-[address] MARGIE SOTO DO Facility:B Start: 08-09-2023 End: 08-13-[address] MARGIE SOTO DO [facility] Start: 08-03-2023 End: 08-03-2023 ambulatory CJ RIVERA [facility] Start: 08-03-2023 End: 08-03-2023 Office outpatient visit 40 minutes Colton Hicks MD Work Phone: [facility] Comment on above: Chronic pancreatitis , unspecified pancreatitis type (CMS/HCC) (Primary Dx) Start: 08-03-2023 End: 08-03-2023 ambulatory COLTON HICKS [facility] Start: 07-27-2023 End: 07-27-2023 ambulatory [place] Start: 07-26-[address] MARGIE SOTO DO Fac ility:A Start: 07-19-2023 ambulatory [facility] Start: 07-05-2023 End: 07-05-2023 Emergency department patient visit MADELIN ALDANA [facility] Start: 07-05-2023 ambulatory [facility] Start: 06-27-2023 Refill Alaina Langenbe ck MANAGER PROFESSIONAL DEVELOPMENT.SPECIAL NEEDS TEACHER Work Phone: Neurology Comment on above: Refill Request Start: 06-16-2023 AUDIT Cj Hooper on Work Phone: [id number] [facility] 6 [facility] Work Phone: Start: 06-15-2023 End: 06-18-2023 Evaluation and management of inpatient Angela Miles MD Work Phone: [facility] [place] 3 Comment on above: Epigastric pain; Other chronic pancreatitis (CMS/HCC) Start: 06-14-2023 End: 06-18-2023 [facility] [place] [address] Start: 06-03-2023 End: 06-03-2023 Emergency department patient visit YOANA WEAVER MD [facility] [facility] Start: 05-25-2023 Current tobacco non- user cad cap copd pv dm Cj Rivera Work Phone: [facility] Work Phone: Start: 05-23-2023 End: 05-23-2023 Emergency department patient visit DR ALEXEY CHEEK DO [facility] Start: 05-19-2023 End: 05-19-2023 Emergency department patient visit LETHA CID MD [facility] Start: 05-18-2023 Patient encounter procedure Colton Hicks [facility] Start: 05-12-2023 End: 05-16-2023 Evaluation and management of inpatient Adelina Og [facility] Lksd 20 Rm 2008 09 Start: 05-09-2023 End: 05-09-2023 Emergency department patient visit YOANA WEAVER MD [facility] Start: 05-08-2023 Refill Sarah Osorio PA-C Work Phone: Neurology Comment on above: Refill Request Start: 04-30-2023 End: 04-30-2023 Emergency department [facility] Start: 04-29-2023 End: 04-30-2023 Emergency department patient visit Lisbeth Davies DO Work Phone: [facility] ED Comment on above: Psychosis, unspecifi ed psychosis type (HCC) (Primary Dx); Agitation Start: 04-29-2023 End: 04-29-2023 Emergency department patient visit MOLINA QUIROZ DO [facility] Start: 04-25-2023 End: 04-28-2023 Evaluation and management of inpatient Terry Torrezmarymiroslava [facility] [id number] Rm [id number] 01 Start: 04-25-2023 End: 04-25-2023 Emergency department patient visit WIN ALLRED MD [facility] Start: 04-01-2023 End: 04-03-2023 Evaluation and management of inpatient MOLINA VALLE MD [facility] Start: 03-28-2023 End: 04-01-2023 Evaluation and management of inpatient CJ RIVERA MANAGER PROFESSIONAL DEVELOPMENT-SPECIAL NEEDS TEACHER Facility:[facility] Start: 03-07-2023 End: 03-11-2023 Evaluation and management of inpatient SUJATHA HERNANDEZ MANAGER PROFESSIONAL DEVELOPMENT-SPECIAL NEEDS TEACHER [facility] Start: 01-25-2023 Refill Alaina nicholson MANAGER PROFESSIONAL DEVELOPMENT.SPECIAL NEEDS TEACHER Work Phone: Neurology Comment on above: Refill Request Start: 01-25-2023 End: 01-25-2023 Emergency department patient visit LETHA CID MD [facility] Start: 01-24-2023 End: 01-24-2023 Patient encounter procedure CJ RIVERA MANAGER PROFESSIONAL DEVELOPMENT-SPECIAL NEEDS TEACHER [facility] Start: 12-07-2022 Refill Sin Quemado A PRN.SPECIAL NEEDS TEACHER Work Phone: Neurology Comment on above: Refill Request Start: 12-06-2022 End: 12-06-2022 Emergency department patient visit OPAL REYNOLDS DO [facility] Start: 11-13-2022 End: 11-13-2022 Emergency department patient visit ADINA WHITT MD [facility] Start: 11-12-2022 End: 11-13-2022 Emergency department patient visit DR COLTON BAE MD [facility] Start: 11-08-2022 Refill Alaina nicholson MANAGER PROFESSIONAL DEVELOPMENT.SPECIAL NEEDS TEACHER Work Phone: Neurology Comment on above: Refill Request Start: 10-19-2022 End: 10-19-2022 Emergency department patient visit MOLINA QUIROZ DO [facility] Start: 10-18-2022 End: 10-18-2022 Emergency department patient visit YOANA WEAVER MD [facility] Start: 10-10-2022 Refill Sin Quemado A PRN.SPECIAL NEEDS TEACHER Work Phone: Neurology Comment on above: Refill Request Start: 09-07-2022 Refill Alaina nicholson MANAGER PROFESSIONAL DEVELOPMENT.SPECIAL NEEDS TEACHER Work Phone: Neurology Comment on above: Refill Request Start: 07-28-2022 Telephone encounter Joselyn Moon MD Work Phone: Neurology Comment on above: Other Start: 07-27-2022 End: 07-27-2022 Emergency department patient visit WAQAR BOYLE MD [facility] Start: 06-17-2022 End: 06-22-2022 Evaluation and management of inpatient JUWAN BELTRAN MD [facility] Start: 06-17-2022 End: 06-17-2022 Emergency department patient visit LAURA PAINTING MD [facility] Start: 06-14-2022 Refill Sin Hayes PRN.SPECIAL NEEDS TEACHER Work Phone: Neurology Comment on above: Refill Request Start: 05-06-2022 Refill Alaina nicholson MANAGER PROFESSIONAL DEVELOPMENT.SPECIAL NEEDS TEACHER Work Phone: Neurology Comment on above: Refill Request Start: 04-13-2022 Refill Sarah Osorio PA-C Work Phone: Neurology Comment on above: Refill Request Start: 04-12-2022 End: 04-12-2022 Emergency department patient visit SHARLENE CALIXTO DO [facility] Start: 03-10-2022 End: 03-10-2022 Emergency department patient visit ADINA WHITT MD [facility] Start: 02-11-2022 End: 02-11-2022 Emergency department patient visit QUOC GOMEZ MD [facility] Start: 02-02-2022 End: 02-02-2022 Emergency department patient visit DR ALEXEY CHEEK DO [facility] Start: 12-28-2021 Refill Peter Cebull A PRN.SPECIAL NEEDS TEACHER Work Phone: Neurology Comment on above: Refill Request Start: 10-28-2021 End: 10-28-2021 Emergency department patient visit DR JIM LEIGH MD [facility] Start: 09-22-2021 End: 09-24-2021 Evaluation and management of inpatient BAILEE BECK MANAGER PROFESSIONAL DEVELOPMENT-SPECIAL NEEDS TEACHER [facility] Start: 09-09-2021 End: 09-09-2021 Emergency department patient visit LAURA PAINTING MD [facility] Start: 08-06-2021 End: 08-06-2021 Emergency department patient visit DR COLTON BAE MD [facility] Start: 07-31-2021 End: 07-31-2021 Emergency department patient visit BINU FALK DO [facility] Start: 07-02-2021 End: 07-02-2021 Emergency department patient visit DR JIM LEIGH MD [facility] Start: 06-30-2021 End: 06-30-2021 Patient encounter procedure CHRYSTAL GAVIRIA MANAGER PROFESSIONAL DEVELOPMENT-SPECIAL NEEDS TEACHER [facility] Start: 12-03-2019 End: 12-03-2019 Emergency department patient visit PARUL LAWRENCE [facility] Start: 12-02-2017 End: 12-05-2017 Evaluation and management of inpatient [facility] Facility:[facility] Start: 11-15-2017 Emergency department patient visit UNKNOWN PROVIDER [facility] Start: 10-28-2017 Ambulatory [facility] Start: 10-27-2017 Emergency department patient visit Emergency Physicians Sally Lindsey Facility:[facility] Start: 10-10-2017 End: 10-10-2017 Emergency department patient visit Sharla Fritz Facility:[facility] Start: 08-11-2017 End: 08-11-2017 Emergency department patient visit Sharla Fritz Facility:[facility] Start: 06-17-2017 End: 06-17-2017 Ambulatory Manish [facility] Facility:[facility] Start: 06-14-2017 End: 06-14-2017 Emergency department patient visit Manish Schulz Facility:[facility] Procedures Date Procedure Procedure Detail Performing Clinician Start: 06-16-2024 Urnls dip stick/tablet rgnt auto w/o microscopy Odilia Gunn APRN.SPECIAL NEEDS TEACHER Work Phone: Start: 03-19-2024 Esophagogastroduodenoscopy COLTON THOMPSON [...] metabolic panel calcium total Martha A Derik MANAGER PROFESSIONAL DEVELOPMENT-SPECIAL NEEDS TEACHER Work Phone: Start: 03-01-2024 Radiologic exam abdomen [...] metabolic panel calcium total Martha Hayes Robertler MANAGER PROFESSIONAL DEVELOPMENT-SPECIAL NEEDS TEACHER Work Phone: Start: 03-01-2024 Blood count complete automated Martha Hayes [employer] MANAGER PROFESSIONAL DEVELOPMENT-SPECIAL NEEDS TEACHER Work Phone: Start: 02-29-2024 End: 02-29-2024 Heparin assay Ana Wolfe MD Work Phone: Start: 02-29-2024 End: 02-29-2024 Heparin assay Ana Wolfe MD Work Phone: Start: 02-29-2024 End: 02-29-2024 Heparin assay Brea Nolen MD Work Phone: Start: 02-29-2024 Glucose quantitative blood xcpt reagent strip Brea Nolen MD Work Phone: Start: 02-29-2024 Basic metabolic panel calcium total Martha Hayes Robertler MANAGER PROFESSIONAL DEVELOPMENT-SPECIAL NEEDS TEACHER Work Phone: Start: 02-28-2024 Glucose quantitative blood xcpt reagent strip Brea Nolen MD Work Phone: Start: 02-28-2024 Glucose quantitative blood xcpt reagent strip Brea Nolen MD Work Phone: Start: 02-28-2024 Heparin assay Martha Hayes Derik MANAGER PROFESSIONAL DEVELOPMENT-SPECIAL NEEDS TEACHER Work Phone: Start: 02-28-2024 Dup-scan xtr veins [...] function 2000 panel - Serum or Plasma CLOTON HICKS Start: 02-04-2024 Lipase [Enzymatic activity/volume] in [...] 2000 panel - Serum or Plasma COLTON HICSK Start: 12-07-2023 CBC W Auto Differential panel [...] COLTON HARDENANZARO Start: 11-14-2023 NURSING COMMUNICATION COLTON UKRT Start: 11-14-2023 ENDOSCOPIC ULTRASOUND (UPPER) COLTON FINA [...] Serum or Plasma COLTON HICKS Start: 11-13-2023 CBC W Auto Differential [...] Start: 11-12-2023 EXTRA URINE VACA TUBE Jaret Damioc MD Work Phone: Start: 11-12-2023 Urinalysis complete [...] instrmnt chem analyzers pr date Nancy Benedict MANAGER PROFESSIONAL DEVELOPMENT-SPECIAL NEEDS TEACHER Work Phone: Start: 11-11-2023 IP CONSULT TO [...] CT ABDOMEN PELVIS W IV CONTRAST COLTON Brareto ANAFREDERICKENMANUEL Start: 11-10-2023 POCT , URINE COLTON [...] central venous catheter placement check Shantell Rossi MANAGER PROFESSIONAL DEVELOPMENT-SPECIAL NEEDS TEACHER Work Phone: Start: 10-12-2023 TREATMENT CONDITIONS 2 [...] Start: 08-31-2020 Prescription event monitoring CHRYSTAL SANTILLAN [employer] Comment on above: Symptomatic PAC and sinus tachycardia wi th light activity Start: 08-07-2020 Cardiovascular stress testing CHRYSTAL SANTILLAN [employer] Comment on above: No evidence of ischemia or prior infarct ion. Breast attenuation artifact seen. Normal systolic function with EF 70%. No prior studies available for comparison. Start: 02-14-2020 Echocardiography CHRYSTAL GAVIRIA [employer] Comment on above: EF 60-65%, cavity size [...] is identified. Start: 01-20-2018 Echocardiography CHRYSTAL GAVIRIA [employer] Comment on above: Atrial septum: Agitated saline contrast study shows no atrial level shunt. Left ventricle: The cavity size is normal. Wall thickness is normal. systolic function is normal. The estimated EF is 60-65%. Wall motion is normal; there are no regional wall motion abnormalities. Start: 01-17-2018 Echocardiography CHRYSTAL GAVIRIA [employer] Comment on above: EF 55-60% Mitral valve is mildly calcifi ed. The leaflets are moderately thickened. Right ventricle: the cavity size is mildly increased. Right atrium is mildly dilated. Atrium septum, POOR QUALITY BUBBLE STUDY. CANT INTERPRET WITH REASONABLE CERTAINITY.NEEDS REPEATED OR RECOMMEND NADIR TO ASSESS FOR INTERATRIAL SHUNT. Abdominal hysterectomy JUAN LUIS GAVIRIA MANAGER PROFESSIONAL DEVELOPMENT-SPECIAL NEEDS TEACHER Appendectomy CHRYSTAL GAVIRIA MANAGER PROFESSIONAL DEVELOPMENT-SPECIAL NEEDS TEACHER section CHRYSTAL Spencer MANAGER PROFESSIONAL DEVELOPMENT-SPECIAL NEEDS TEACHER section CHRYSTAL Spencer MANAGER PROFESSIONAL DEVELOPMENT-SPECIAL NEEDS TEACHER Cholecystectomy CHRYSTAL GAVIRIA MANAGER PROFESSIONAL DEVELOPMENT-SPECIAL NEEDS TEACHER Endoscopic retrograd e cholangiopancreatography CHRYSTAL GAVIRIA MANAGER PROFESSIONAL DEVELOPMENT-SPECIAL NEEDS TEACHER Filter, device (physical object) CHRYSTAL GAVIRIA MANAGER PROFESSIONAL DEVELOPMENT-SPECIAL NEEDS TEACHER Comment on above: IVC Tonsillectomy CHRYSTAL GAVIRIA MANAGER PROFESSIONAL DEVELOPMENT-SPECIAL NEEDS TEACHER Plan of Treatment Date Care Activity Detail Author Start: 02-03-2029 Lipid panel Lipid Screening [facility] Start: 04-03-2028 Lipid panel Lipid Panel [facility] Start: 06-04-2027 Diabetes Screening Diabetes Screening [facility] Start: 05-30-2027 Diabetes Screening Diabetes Screening [facility] Start: 03-05-2025 Creatinine measurement Creatinine Level [facility] Start: 03-05-2025 Potassium measurement Potassium Level [facility] Start: 03-02-2025 Creatinine measurement Creatinine Level [facility] Start: 03-02-2025 Potassium measurement Potassium Level [facility] Start: 02-27-2025 Echocardiography Echocardiogram [facility] Start: 02-03-2025 Lipid panel Lipid Panel [facility] Start: 2024 Zoster Vaccines (1 of 2) Zoster Vaccines (1 of 2) [facility] Start: 12-07-2024 Creatinine measurement Creatinine Level [facility] Start: 12-07-2024 Potassium measurement Potassium Level [facility] Start: 12-05-2024 Creatinine measurement Creatinine Level [facility] Start: 12-05-2024 Potassium measurement Potassium Level [facility] Start: 12-04-2024 Creatinine measurement Creatinine Level [facility] Start: 12-04-2024 Potassium measurement Potassium Level [facility] Start: 11-15-2024 Creatinine measurement Creatinine Level [facility] Start: 11-15-2024 Potassium measurement Potassium Level [facility] Start: 11-10-2024 Creatinine measurement Creatinine Level [facility] Start: 11-10-2024 Diabetes mellitus screening Diabetes Screening [facility] Start: 11-10-2024 Potassium measurement Potassium Level [facility] Start: 08-03-2024 Creatinine measurement Creatinine Level [facility] Start: 08-03-2024 Potassium measurement Potassium Level [facility] Start: 07-05-2024 Creatinine measurement Creatinine Level [facility] Start: 07-05-2024 Potassium measurement Potassium Level [facility] Start: 06-18-2024 Diabetes mellitus screening Diabetes Screening [facility] Start: 06-16-2024 Creatinine measurement Creatinine Level [facility] Start: 06-16-2024 Potassium measurement Potassium Level [facility] Start: 05-21-2024 DIABETES SCREEN DIABETES SCREEN [facility] Start: 05-21-2024 Diabetes Screening Diabetes Screening [facility] Start: 05-20-2024 Covid-19 Vaccine ( season) Covid-19 Vaccine ( season) [facility] Start: 05-20-2024 Covid-19 Vaccine ( season) Covid-19 Vaccine ( season) [facility] Start: 05-20-2024 Influenza vaccination [facility] Start: 05-16-2024 End: 05-16-2024 Patient encounter procedure 05/16/2024 10:00 AM EDT Office Visit [facility] [address] [facility] [address] [place] [phone] [place] [address] [address] Department [place] [address] [facility] Start: 05-06-2024 Hemoglobin A1c measurement Diabetes: Hemoglobin A1C [facility] Start: 04-25-2024 End: 04-25-2024 Patient encounter procedure 04/25/2024 8:30 AM EDT Infusion [facility] [address] [place] [address] [facility] Start: 04-11-2024 End: 04-11-2024 Patient encounter procedure 04/11/2024 10:00 AM EDT Infusion [facility] [address] [place] [address] [facility] Start: 04-09-2024 End: 04-09-2024 Patient encounter procedure 04/09/2024 11:00 AM EDT Office Visit [facility] [address] [facility] [address] [place] [address] [place] [address] [address] Department of Medicine-Gastroenterology [place] [id number] [facility] Start: 04-05-2024 End: 04-05-2024 Patient encounter procedure 04/05/2024 3:15 PM EDT Office Visit [facility] [address] [place] [address] Paul Virgen PA-C [address] [facility] [address] [place] [address] [facility] Start: 04-04-2024 Creatinine measurement Creatinine Level [facility] Start: 04-04-2024 Potassium measurement Potassium Level [facility] Start: 04-03-2024 Lipid panel Lipid Panel [facility] Start: 03-28-2024 End: 03-28-2024 Patient encounter procedure 03/28/2024 7:30 AM EDT Infusion [facility] [address] [place] [address] [facility] Start: 03-14-2024 End: 03-14-2024 Patient encounter procedure 03/14/2024 8:00 AM EDT Infusion [facility] [address] [place] [address] [facility] Start: 03-09-2024 End: 03-09-2024 Patient encounter procedure 03/09/2024 2:20 PM EDT Office Visit [facility] [place] [address] [facility] [address] [place] [phone] [place] [address] [address] Department [place] [address] [facility] Start: 03-08-2024 End: 03-08-2024 Patient encounter procedure 03/08/2024 1:20 PM EDT Office Visit [facility] [address] [facility] [address] [place] [phone] [place] [address] [address] Department [place] [address] [facility] Start: 02-29-2024 End: 02-29-2024 Patient encounter procedure 02/29/2024 10:00 AM EDT Infusion [facility] [address] [place] [address] [facility] Start: 02-21-2024 End: 02-21-2024 Telemedicine consultation with patient 02/21/2024 2:15 PM EDT Telemedicine [facility] [address] [facility] [address] [place] [id number] [place] [address] [place] [address] [facility] Start: 02-15-2024 End: 02-15-2024 Patient encounter procedure [facility] Start: 02-08-2024 Hemoglobin A1c measurement Diabetes: Hemoglobin A1C [facility] Start: 02-08-2024 End: 02-08-2024 Patient encounter procedure 02/08/2024 11:00 AM EDT Office Visit [facility] [address] [facility] [address] [place] [address] [place] [address] [address] Department [place] [address] [facility] Start: 02-01-2024 End: 02-01-2024 Patient encounter procedure 02/01/2024 8:30 AM EDT Infusion [facility] [address] [place] [address] [facility] Start: 01-18-2024 End: 01-18-2024 Patient encounter procedure 01/18/2024 8:30 AM EDT Infusion [facility] [address] [place] [address] [facility] Start: 01-04-2024 End: 01-04-2024 Telemedicine consultation with patient 01/04/2024 1:00 PM EDT Telemedicine [facility] [place] [address] [address] [place] [address] [place] [address] [facility] Start: 01-04-2024 End: 01-04-2024 Patient encounter procedure [facility] Start: 12-21-2023 End: 12-21-2023 Patient encounter procedure 12/21/2023 8:00 AM EDT Infusion [facility] [address] [place] [address] [facility] Start: 12-07-2023 End: 12-07-2023 Patient encounter procedure 12/07/2023 7:30 AM EDT Infusion [facility] [address] [place] [address] [facility] Start: 11-23-2023 End: 11-23-2023 Patient encounter procedure 11/23/2023 8:00 AM EST Infusion [facility] [address] [place] [address] [facility] Start: 11-09-2023 End: 11-09-2023 Patient encounter procedure 11/09/2023 10:15 AM EST Appointment [facility] [address] [place] [address] [facility] Start: 11-09-2023 End: 11-09-2023 Patient encounter procedure 11/09/2023 8:30 AM EST Infusion [facility] [address] [place] [address] [facility] Start: 10-27-2023 End: 10-27-2023 Patient encounter procedure [facility] Start: 10-12-2023 End: 10-12-2023 Patient encounter procedure [facility] Start: 09-28-2023 End: 09-28-2023 Patient encounter procedure 09/28/2023 8:00 AM EST Infusion [facility] [address] [place] [address] [facility] Start: 09-06-2023 End: 09-06-2023 Patient encounter procedure 09/06/2023 1:00 PM EST Infusion [facility] [address] [place] [address] [facility] Start: 08-23-2023 End: 08-23-2023 Patient encounter procedure 08/23/2023 8:00 AM EST Infusion [facility] [address] [place] [address] [facility] Start: 08-03-2023 End: 08-03-2024 CBC panel - Blood by Automated count CBC Lab Routine Chronic pancreatitis, unspecified pancreatitis type (CMS/HCC) Expected: 08/03/2023 (Approximate), Expires: 08/03/2024 [facility] Work Phone: Comment on above: Expected: 08/03/2023 (Approximate), Expi res: 08/03/2024 Start: 08-03-2023 End: 08-03-2024 Comprehensive metabolic 2000 panel - Serum or Plasma Comprehensive Metabolic Panel Lab Routine Chronic pancreatitis, unspecified pancreatitis type (CMS/HCC) Expected: 08/03/2023 (Approximate), Expires: 08/03/2024 [facility] Work Phone: Comment on above: Expected: 08/03/2023 (Approximate), Expi res: 08/03/2024 Start: 08-03-2023 End: 08-03-2024 IgG subclass 4 [Mass/volume] in Serum IgG4 Lab Routine Chronic pancreatitis, unspecified pancreatitis type (CMS/HCC) Expected: 08/03/2023 (Approximate), Expires: 08/03/2024 [facility] Work Phone: Comment on above: Expected: 08/03/2023 (Approximate), Expi res: 08/03/2024 Start: 08-03-2023 End: 08-03-2024 Lipase [Enzymatic activity/volume] in Serum or Plasma Lipase Lab Routine Chronic pancreatitis, unspecified pancreatitis type (CMS/HCC) Expected: 08/03/2023 (Approximate), Expires: 08/03/2024 [facility] Service Area Work Phone: Comment on above: Expected: 08/03/2023 (Approximate), Expi res: 08/03/2024 Start: 07-19-2023 [id number], Provider: [facility] INFUSION ROOM 01,[id number], Status: Pen, Time: 12:30 PM [id number], Provider: [facility] INFUSION ROOM 01,[id number], Status: Pen, Time: 12:30 PM [facility] Work Phone: Start: 07-19-2023 Patient encounter procedure [facility] Start: 07-19-2023 End: 07-19-2023 Patient encounter procedure 07/19/2023 12:30 PM EDT Infusion [facility] [address] [place] [address] [facility] Start: 07-06-2023 NPV, Provider: Colton Hicks, Status: Pen, Time: 9:40 AM NPV, Provider: Colton Hicks, Status: Pen, Time: 9:40 AM [facility] Work Phone: Start: 07-06-2023 Patient encounter procedure [facility] Start: 07-06-2023 End: 07-06-2023 Patient encounter procedure 07/06/2023 9:40 AM EDT Office Visit [facility] [address] [facility] [address] [place] [address] [place] [address] [facility] Department [place] [address] [facility] Start: 07-05-2023 [id number], Provider: [facility] INFUSION ROOM 02,[id number], Status: Pen, Time: 1:30 PM [id number], Provider: [facility] INFUSION ROOM 02,[id number], Status: Pen, Time: 1:30 PM [facility] Work Phone: Start: 07-05-2023 Patient encounter procedure [facility] Start: 07-05-2023 End: 07-05-2023 Patient encounter procedure 07/05/2023 1:30 PM EDT Infusion [facility] [address] [place] [address] [facility] Start: 06-17-2023 End: 06-17-2024 Rivaroxaban . ; Tablet (XARELTO)DOSE = 10 mg Oral Daily Start: 17-Jun-2023 End: 16-Jun-2024 Ordered: 17-Jun-2023 Sangeeta Yu Intent [facility] Start: 06-15-2023 End: 06-15-2024 Ondansetron Injectable 4 mg IntraVenous Push Every 6 Hours PRN ; (ZOFRAN)DOSE = 4 mg IntraVenous Push Every 6 Hours, PRN Nausea and/or Vomiting Start: 15-Jun-2023 End: 14-Jun-2024 Ordered: 15-Jun-2023 Chastity León Intent [facility] Start: 06-15-2023 End: 06-15-2024 Nicotine 7 mg/ 24 hour TransDermal 1 patch Every 24 Hours ; Film, Extended Release (NICODERM)DOSE = 1 patch TransDermal Every 24 HoursNotes from Pharmacy: [facility] Start: 15-Jun-2023 End: 14-Jun-2024 Ordered: 15-Jun-2023 Nancy Benedict Intent [facility] Start: 06-15-2023 End: 06-15-2024 [facility] Start: 05-25-2023 Patient encounter procedure [facility] Start: 05-20-2023 COVID-19 Vaccine () COVID-19 Vaccine () [facility] Start: 05-20-2023 Influenza vaccination [facility] Start: 05-18-2023 Patient encounter procedure [facility] Start: 05-16-2023 End: 05-16-2024 Benzonatate 100 mg Oral Capsule 3 Times a Day ; Capsule (TESSALON PERLES)DOSE = 100 mg Oral 3 Times a Day, PRN Cough Start: 16-May-2023 End: 15-May-2024 Ordered: 16-May-2023 Adelina Thompson Intent [facility] Start: 05-15-2023 End: 05-15-2024 Sore Throat Lozenge 1 Oral Lozenge Every 2 Hours PRN ; LozengeDOSE = 1 lozenge(s) Oral Every 2 Hours, PRN Sore ThroatCa lozenge(s)/DOSE x 1 = 1 lozenge(s)/Dose (Daily Total is 12 lozenge(s)) Start: 15-May-2023 End: 14-May-2024 Ordered: 15-May-2023 Alsallamin Terry Y Intent [facility] Start: 05-14-2023 End: 05-17-2023 Iohexol (Omnipaque 350-Radiology Contrast) . ; (OMNIPAQUE)DOSE = 144 mL IntraVenous Push OnceCa.5 mL/Kg/DOSE x 96 Kg = 144 mL/Dose (Daily Total is 144 mL)LABS: Blood Urea Nitrogen, Serum,17,13-May-2023 21:14:36 Creatinine, Serum,0.75,13-May-2023 21:14:36 Start: 14-May-2023 End: 16-May-2023 Ordered: 14-May-2023 Jaret Mora Intent [facility] Start: 05-13-2023 End: 05-13-2024 Prochlorperazine 10 mg Oral Tablet Every 8 Hours PRN ; Tablet (COMPAZINE)DOSE = 10 mg Oral Every 8 Hours, PRN severe nausea or vomitingClinician Notes: Avoid if any signs of extrapyramidal or abnormal movements Start: 13-May-2023 End: 12-May-2024 Ordered: 13-May-2023 Alsallamin, Terry Y Intent Comments: Avoid if any signs of extrapyramidal or abnormal movements [facility] Comment on above: Avoid if any signs of extrapyramidal or abnormal movements Start: 05-13-2023 End: 05-12-2024 [facility] Comment on above: With food Start: 05-12-2023 End: 05-12-2024 Sodium Chloride 0.9% Injectable Flush Peripheral Line ; via Peripheral LineVolume = 10 mL IntraVenous Flush Every 8 Hours and as Needed Start: 12-May-2023 End: 11-May-2024 Ordered: 12-May-2023 Nancy Benedict Intent [facility] Start: 05-12-2023 End: 05-15-2023 Iohexol (Omnipaque 350-Radiology Contrast) . ; (OMNIPAQUE)DOSE = 144 mL IntraVenous Push OnceCa.5 mL/Kg/DOSE x 96 Kg = 144 mL/Dose (Daily Total is 144 mL)LABS: Blood Urea Nitrogen, Serum,17,12-May-2023 11:41:52 Creatinine, Serum,0.86,12-May-2023 11:41:52 Start: 12-May-2023 End: 14-May-2023 Ordered: 12-May-2023 Gurmeet Patel Intent [facility] Start: 05-04-2023 Patient encounter procedure [facility] Start: 04-27-2023 End: 04-27-2024 Nicotine Transmucosal 4 mg Oral Gum Every 4 Hours PRN ; Gum (NICORETTE)DOSE = 4 mg Oral Every 2 Hours, PRN tobacco cravingsNotes from Pharmacy: [facility] Start: 27-Apr-2023 End: 26-Apr-2024 Ordered: 27-Apr-2023 Alsallamin, Terry Y Intent [facility] Start: 04-26-2023 End: 04-26-2024 diphenhydrAMINE Injectable 25 mg IntraVenous Push Every 4 Hours PRN ; (BENADRYL)DOSE = 25 mg IntraVenous Push Every 4 Hours, PRN allergy, itching, nasea Start: 26-Apr-2023 End: 25-Apr-2024 Ordered: 26-Apr-2023 Alsallamin, Terry Y Intent [facility] Start: 04-26-2023 End: 04-26-2024 [facility] Start: 08-25-2022 BP CONTROLLED (<130/80) BP CONTROLLED (<130/80) [facility] Start: 05-20-2022 Influenza vaccination [facility] Start: 12-21-2019 COLOGUARD (FIT-DNA) COLOGUARD (FIT-DNA) [facility] Start: 12-21-2019 Colonoscopy COLONOSCOPY [facility] Start: 12-21-2019 COLORECTAL CANCER SCREENING COLORECTAL CANCER SCREENING [facility] Start: 12-21-[address] COLONOGRAPHY [facility] Start: 12-21-2019 FECAL OCCULT BLOOD FECAL OCCULT BLOOD [facility] Start: 12-21-2019 Lipid 1996 panel - Serum or Plasma Lipid Screening [facility] Start: 12-21-2019 LIPID SCREEN LIPID SCREEN [facility] Start: 12-21-2019 Screening for malignant neoplasm of colon [facility] Start: 12-21-2019 SIGMOIDOSCOPY SIGMOIDOSCOPY [facility] Start: 2014 Mammography [facility] Start: 2014 Screening for malignant neoplasm of breast [facility] Start: 2004 HPV TESTING HPV TESTING [facility] Start: 2004 Screening for malignant neoplasm of cervix [facility] Start: 1996 DTaP/Tdap/Td Vaccines (1 - Tdap) DTaP/Tdap/Td Vaccines (1 - Tdap) [facility] Start: 12-21-1995 PAP TESTING PAP TESTING [facility] Start: 12-21-1995 Screening for malignant neoplasm of cervix [facility] Start: 1993 DTaP/Tdap/Td Vaccines (1 - Tdap) DTaP/Tdap/Td Vaccines (1 - Tdap) [facility] Start: 1993 Hepatitis A Vaccines (1 of 2 - Risk 2-dose series) Hepatitis A Vaccines (1 of 2 - Risk 2-dose series) [facility] Start: 1993 Hepatitis B Vaccine (1 of 3 - 19+ 3-dose series) Hepatitis B Vaccine (1 of 3 - 19+ 3-dose series) [facility] Start: 1993 Hepatitis B Vaccines (1 of 3 - 19+ 3-dose series) Hepatitis B Vaccines (1 of 3 - 19+ 3-dose series) [facility] Start: 1993 Urine microalbumin profile [facility] Start: 1993 Urine screening for protein Diabetes: Urine Protein Screening [facility] Start: 1992 ANNUAL PCP TEAM CHRONIC DISEASE VISIT ANNUAL PCP TEAM CHRONIC DISEASE VISIT [facility] Start: 1992 BP CONTROLLED (<130/80) BP CONTROLLED (<130/80) [facility] Start: 1992 Diabetes mellitus screening Diabetes Screening [facility] Start: 1992 HEPATITIS C SCREENING HEPATITIS C SCREENING [facility] Start: 1992 Hepatitis C screening Hepatitis C Screening [facility] Start: 1992 HIV SCREENING HIV SCREENING [facility] Start: 1992 HIV screening HIV Screening [facility] Start: 1986 Depression Screening Depression Screening [facility] Start: 1984 Diabetic foot examination Diabetes: Foot Exam [facility] Start: 1984 Glaucoma screening Diabetes: Retinopathy Screening [facility] Start: 1980 PNEUMOCOCCAL (1 - PCV) PNEUMOCOCCAL (1 - PCV) [facility] Start: 1980 Pneumococcal vaccination [facility] Start: 1980 Pneumococcal Vaccine: Pediatrics (0 to 5 Years) and At-Risk Patients (6 to 64 Years) (1 - PCV) Pneumococcal Vaccine: Pediatrics (0 to 5 Years) and At-Risk Patients (6 to 64 Years) (1 - PCV) [facility] Start: 1980 Pneumococcal Vaccine: Pediatrics (0 to 5 Years) and At-Risk Patients (6 to 64 Years) (1 of 2 - PCV) Pneumococcal Vaccine: Pediatrics (0 to 5 Years) and At-Risk Patients (6 to 64 Years) (1 of 2 - PCV) [facility] Start: 12-21-1979 COVID-19 VACCINE (1) COVID-19 VACCINE (1) [facility] Start: 12-21-1975 MMR Vaccines (1 of 1 - Standard series) MMR Vaccines (1 of 1 - Standard series) [facility] Start: 06-21-1975 COVID-19 VACCINE (#1) COVID-19 VACCINE (#1) [facility] Start: 1974 Echocardiography Echocardiogram [facility] Start: 1974 HEPATITIS B (1 of 3 - 3-dose series) HEPATITIS B (1 of 3 - 3-dose series) [facility] Start: 1974 Hepatitis B Vaccine (1 of 3 - 3-dose series) Hepatitis B Vaccine (1 of 3 - 3-dose series) [facility] Start: 1974 Hepatitis B Vaccines (1 of 3 - 3-dose series) Hepatitis B Vaccines (1 of 3 - 3-dose series) [facility] Start: 1974 HIV screening HIV Screening [facility] Start: 1974 Medicare Annual Wellness Visit Medicare Annual Wellness Visit (AWV) [facility] Start: 1974 Screening for malignant neoplasm of colon [facility] aPTT in Platelet poo r plasma by Coagulation assay aPTT - baseline Lab Timed As needed (Lab) for 1 Occurrences starting 12/05/2023 [facility] Work Phone: Comment on above: As needed (Lab) for 1 Occurrences starti ng 12/05/2023 Bacteria identified in Wound by Culture ABSCESS AND WOUND CULTURE WITH GRAM STAIN Microbiology Routine Vulvar lesion 06/08/2024 3:03 PM EDT [facility] Work Phone: End: 06-18-2023 C reactive protein [Mass/volume] in Serum or Plasma C-Reactive Protein Lab Routine Once (Lab) for 1 Occurrences starting 06/18/2023 until 06/18/2023 [facility] Work Phone: Comment on above: Once (Lab) for 1 Occurrences starting until 06/18/2023 End: 06-18-2023 CBC panel - Blood by Automated count CBC Lab Routine Morning draw (Lab) for 1 Occurrences starting 06/18/2023 until 06/18/2023 [facility] Work Phone: Comment on above: Morning draw (Lab) for 1 Occurrences sta rting 06/18/2023 until 06/18/2023 CBC panel - Blood by Automated count CBC Lab Timed As needed (Lab) for 1 Occurrences starting 12/05/2023 [facility] Work Phone: Comment on above: As needed (Lab) for 1 Occurrences starti ng 12/05/2023 End: 12-11-2023 CBC panel - Blood by Automated count CBC Lab Routine Every other day (Lab) for 3 Occurrences starting 12/07/2023 until 12/11/2023, 1 completed [facility] Work Phone: Comment on above: Every other day (Lab) for 3 Occurrences starting 12/07/2023 until 12/11/2023, 1 completed End: 03-05-2024 CBC panel - Blood by Automated count CBC Lab Routine Every other day (Lab) for 3 Occurrences starting 03/01/2024 until 03/05/2024, 1 completed [facility] Work Phone: Comment on above: Every other day (Lab) for 3 Occurrences starting 03/01/2024 until 03/05/2024, 1 completed End: 06-18-2023 Choriogonadotropin ( test) [Presence] in Urine hCG, Urine, Qualitative Lab Routine Once (Lab) for 1 Occurrences starting 06/18/2023 until 06/18/2023 [facility] Work Phone: Comment on above: Once (Lab) for 1 Occurrences starting until 06/18/2023 End: 06-18-2023 Comprehensive metabolic 2000 panel - Serum or Plasma Comprehensive metabolic panel Lab Routine Morning draw (Lab) for 1 Occurrences starting 06/18/2023 until 06/18/2023 [facility] Work Phone: Comment on above: Morning draw (Lab) for 1 Occurrences sta rting 06/18/2023 until 06/18/2023 End: 11-14-2023 Continuous Pulse oximetry, In Phase 1 [facility] Work Phone: Comment on above: Continuous until discontinued starting 0 11/14/2023 End: 12-07-2023 Continuous Pulse oximetry, In Phase 1 [facility] Work Phone: Comment on above: Continuous until discontinued starting 0 12/07/2023 End: 12-06-2023 ECG 12 lead [facility] Work Phone: Comment on above: Once for 1 Occurrences starting 12/06/19 until 12/06/2023 End: 03-05-2024 ECG 12 Lead ECG 12 Lead ECG STAT Once for 1 Occurrences starting 03/05/2024 until 03/05/2024 [facility] Work Phone: Comment on above: Once for 1 Occurrences starting 03/05/20 until 03/05/2024 End: 12-05-2023 EGD w Fluoro [facility] Work Phone: Comment on above: Once for 1 Occurrences starting 12/05/19 until 12/05/2023 Once as needed for 1 Occurrences starting 12/05/2023 EGD w Fluoro EGD w Fluoro End oscopy Routine Pseudocyst of pancreas 12/07/2023 10:22 AM EDT [facility] Work Phone: Electrocardiogram, 1 2-lead PRN ACS symptoms Electrocardiogram, 12-lead PRN ACS symptoms ECG Routine As needed until discontinued starting 06/18/2023 [facility] Work Phone: Comment on above: As needed until discontinued starting Electrocardiogram, 1 2-lead PRN ACS symptoms Electrocardiogram, 12-lead PRN ACS symptoms ECG Routine As needed until discontinued starting 11/10/2023 [facility] Work Phone: Comment on above: As needed until discontinued starting Electrocardiogram, 1 2-lead PRN ACS symptoms Electrocardiogram, 12-lead PRN ACS symptoms ECG Routine As needed until discontinued starting 12/05/2023, 1 completed [facility] Work Phone: Comment on above: As needed until discontinued starting , 1 completed Electrocardiogram, 1 2-lead PRN ACS symptoms Electrocardiogram, 12-lead PRN ACS symptoms ECG Routine As needed until discontinued starting 02/28/2024 [facility] Work Phone: Comment on above: As needed until discontinued starting End: 02-27-2024 Extra Urine Vaca Tube Extra Urine Vaca Tube Lab Timed Once for 1 Occurrences starting 02/27/2024 until 02/27/2024 [facility] Work Phone: Comment on above: Once for 1 Occurrences starting 02/27/20 24 until 02/27/2024 Glucose [Mass/volume ] in Serum or Plasma POCT Glucose Point of Care Testing - Docked Device Routine As needed (Lab) until discontinued starting 11/10/2023 [facility] Work Phone: Comment on above: As needed (Lab) until discontinued start ing 11/10/2023 Glucose [Mass/volume ] in Serum or Plasma POCT Glucose Point of Care Testing - Docked Device Routine As needed (Lab) for 1 Occurrences starting 11/14/2023 [facility] Work Phone: Comment on above: As needed (Lab) for 1 Occurrences starti ng 11/14/2023 End: 03-01-2024 Glucose [Mass/volume] in Serum or Plasma [facility] Work Phone: Comment on above: [...] As needed (Lab) until discontinued starting 02/28/2024 [facility] Work Phone: Comment on above: As needed (Lab) until discontinued start ing 02/28/2024 Heparin unfractionat ed [Units/volume] in Platelet poor plasma by Chromogenic method [facility] Work Phone: Comment on above: As needed (Lab) for 30 Occurrences start ing 12/05/2023 As needed (Lab) for 30 Occurrences starting 12/05/2023, 1 completed End: 03-03-2024 Heparin unfractionated [Units/volume] in Platelet poor plasma by Chromogenic method Heparin Assay Lab Routine Once (Lab) for 1 Occurrences starting 03/03/2024 until 03/03/2024 [facility] Work Phone: Comment on above: Once (Lab) for 1 Occurrences starting until 03/03/2024 Prothrombin time (PT) Protime-IN R Lab Timed As needed (Lab) for 1 Occurrences starting 12/05/2023 [facility] Work Phone: Comment on above: As needed (Lab) for 1 Occurrences starti ng 12/05/2023 End: 03-05-2024 Prothrombin time (PT) Protime-INR Lab Routine Morning draw (Lab) for 5 Occurrences starting 03/01/2024 until 03/05/2024, 2 completed [facility] Work Phone: Comment on above: Morning draw (Lab) for 5 Occurrences sta rting 03/01/2024 until 03/05/2024, 2 completed End: 10-18-2023 RF Unspecified body region Views for central venous catheter placement check [facility] Work Phone: Comment on above: Once for 1 Occurrences starting 10/18/19 24 until 10/18/2023 SURGICAL PATHOLOGY SURGICAL PATH OLOGY Lab Routine Vulvar skin tag 05/31/2024 3:32 PM EDT [facility] Work Phone: End: 02-27-2024 Urinalysis complete W Reflex Culture panel - Urine [facility] Work Phone: Comment on above: Once (Lab) for 1 Occurrences starting until 02/27/2024 [facility] Payers Date Payer Category Payer Medicaid MEDICAID MEDICAI D 2023-Present [address] [place] [address] [id number] 2023 Medicaid [id number] 2023 Medicare [id number] 2020 Medicare 2020 Medicare HUMANA MEDICARE HUMANA GOLD PLUS [id number] 2020-Present [phone] [address] [address] [place] [address] O [id number] [id number] 2020 Medicare [id number] 2017 Unknown [id number] 2017 Self-pay 2017 Unknown 1974 Unknown [id number] 2.16840.1.825626.3.579.2. 1974 Unknown [id number] 2.16840.1.804446.3.579.2 1974 Unknown [id number] 2.840.1.842530.3.579.2 1974 Unknown [id number] 2.16840.1.724772.3.579.2 1974 Unknown [id number] 2.16840.1.298799.3.579.2 1974 Unknown [id number] 2.16840.1.705501.3.579.2. 1974 Unknown [id number] 2.16840.1.280430.3.579.2 1974 Unknown [id number] 2.16840.1.562534.3.579.2 1974 Unknown [id number] 2.16840.1.810614.3.579.2. 1974 Unknown [id number] 2.16840.1.172315.3.579.2 1974 Unknown [id number] 2.16840.1.315675.3.579.2 1974 Unknown [id number] 2.16.840.1.298364.3.579.2.627 1974 Unknown [id number] 2.16.840.1.944426.3.579.2. 1974 Unknown [id number] 2.16.840.1.878012.3.579.2.627 1974 Unknown [id number] 2.16.840.1.388693.3.579.2. 1974 Unknown [id number] 2.16.840.1.698782.3.579.2. 1974 Unknown [id number] 2.16.840.1.243812.3.579.2. 1974 Unknown [id number] 2.16840.1.809683.3.579.2. 1974 Unknown [id number] 2.16840.1.687602.3.579.2.651 1974 Unknown [id number] 2.16840.1.289140.3.579.2.159 1974 Unknown [id number] 2.16.840.1.460918.3.579.2.4 1974 Unknown [id number] 2.16.840.1.517986.3.579.2.1244 1974 Unknown [id number] 2.16.840.1.579750.3.579.2.1244 1974 Unknown [id number] 2.16.840.1.510812.3.579.2.1244 1974 Unknown [id number] 2.16.840.1.199356.3.579.2.1244 1974 Unknown [id number] 2.16.840.1.713325.3.579.2.1244 1974 Unknown [id number] 2.16.840.1.213729.3.579.2.1244 1974 Unknown [id number] 2.16.840.1.966173.3.579.2.1244 1974 Unknown [id number] 2.16.840.1.868927.3.579.2.1244 1974 Unknown [id number] 2.16.840.1.251164.3.579.2.1244 1974 Unknown [id number] 2.16.840.1.203755.3.579.2.1244 1974 Unknown [id number] 2.16.840.1.856884.3.579.2.1244 1974 Unknown [id number] 2.16.840.1.550300.3.579.2.1244 1974 Unknown [id number] 2.16840.1.246837.3.579.2.1244 1974 Unknown [id number] 2.16840.1.088878.3.579.2.1244 1974 Unknown [id number] 2.16.840.1.635273.3.579.2.356 1974 Unknown [id number] 2.16840.1.803217.3.579.2.1246 1974 Unknown [id number] 2.16840.1.082803.3.579.2.1246 1974 Unknown [id number] 2.16.840.1.608233.3.579.2.1246 1974 Unknown [id number] 2.16.840.1.911647.3.579.2.1246 1974 Unknown [id number] 2.16.840.1.852426.3.579.2.1246 1974 Unknown [id number] 2.16.840.1.703013.3.579.2.1246 1974 Unknown [id number] 2.16.840.1.672677.3.579.2.1246 1974 Unknown [id number] 2.16.840.1.741661.3.579.2.1246 1974 Unknown [id number] 2.16.840.1.829577.3.579.2.1246 1974 Unknown [id number] 2.16.840.1.460759.3.579.2.1246 1974 Unknown [id number] 2.16.840.1.969243.3.579.2.1246 1974 Unknown [id number] 2.16.840.1.169867.3.579.2.1246 1974 Unknown [id number] 2.16.840.1.203469.3.579.2.1246 1974 Unknown [id number] 2.16840.1.238289.3.579.2.1246 1974 Unknown [id number] 2.16840.1.109586.3.579.2.1246 1974 Unknown [id number] 2.16.840.1.118932.3.579.2.1246 1974 Unknown [id number] 2.16.840.1.072398.3.579.2.1246 1974 Unknown [id number] 2.16.840.1.810269.3.579.2.1246 1974 Unknown [id number] 2.16.840.1.667048.3.579.2.1246 1974 Unknown [id number] 2.16.840.1.324554.3.579.2.1246 1974 Unknown [id number] 2.16.840.1.884841.3.579.2.1246 1974 Unknown [id number] 2.16.840.1.547086.3.579.2.1246 1974 Unknown [id number] 2.16.840.1.531743.3.579.2.1246 1974 Unknown [id number] 2.16.840.1.529451.3.579.2.1246 1974 Unknown [id number] 2.16.840.1.842812.3.579.2.1246 1974 Unknown [id number] 2.16.840.1.920662.3.579.2.1242 1974 Unknown [id number] 2.16.840.1.634585.3.579.2.1242 1974 Unknown [id number] 2.16.840.1.149260.3.579.2.1242 1974 Unknown [id number] 2.16.840.1.114187.3.579.2.1242 1974 Unknown [id number] 2.16.840.1.776856.3.579.2.1242 1974 Unknown [id number] 2.16.840.1.537518.3.579.2.1242 1974 Unknown [id number] 2.16.840.1.755343.3.579.2.1242 1974 Unknown [id number] 2.16.840.1.369151.3.579.2.1242 1974 Unknown [id number] 2.16.840.1.295941.3.579.2.1242 1974 Unknown [id number] 2.16.840.1.460322.3.579.2.1242 1974 Unknown [id number] 2.16.840.1.412151.3.579.2.1242 1974 Unknown [id number] 2.16.840.1.233145.3.579.2.1242 1974 Unknown [id number] 2.16.840.1.849304.3.579.2.1242 1974 Unknown [id number] 2.16.840.1.463432.3.579.2.1243 1974 Unknown [id number] 2.16.840.1.978006.3.579.2.1243 Medicaid [id number] Medicare [id number] Social History Date Type Detail Facility Tobacco Tobacco Use: use a vape pen uses it daily. Type: Electronic Cigarettes. [facility] Smokes tobacco d aily (finding) [facility] Sex Assigned At Female [facility] Start: 11-21-2019 End: 05-31-2024 Tobacco smoking status NHIS Ex-smoker [facility] Start: 11-21-2019 End: 05-31-2024 Tobacco use and exposure Smokeless tobacco non-user [facility] Start: 08-25-2021 End: 06-16-2024 Alcohol intake Not Asked [facility] Start: 11-27-2019 History SDOH Financial 5 [facility] Start: 11-27-2019 History SDOH Food Worry 1 [facility] Start: 11-27-2019 History SDOH Transport Med 2 [facility] Start: 1974 Sex Assigned At Not on file [facility] History of tobacco use Current smoker [facility] Tobacco smoking consumption unknown [facility] History of tobacco use Cigarette Smoker [facility] Start: 09-07-2022 Alcohol intake Current non-drinker of alcohol (finding) [facility] Start: 09-07-2022 End: 07-08-2023 History of Social function [facility] Work Phone: Start: 09-07-2022 End: 07-08-2023 Tobacco use panel [facility] Work Phone: How hard is it for y ou to pay for the very basics like food, housing, medical care, and heating Not hard at all [facility] Work Phone: (I/We) worried whesara er (my/our) food would run out before (I/we) got money to buy more. Never true [facility] Work Phone: Start: 03-17-2021 Gender identity Identifies as female gender (finding) [facility] Start: 03-17-2021 Sexual orientation Heterosexual (finding) [facility] Start: 07-05-2023 End: 11-23-2023 Tobacco smoking status NHIS Never smoked tobacco [facility] Start: 07-27-2023 End: 02-27-2024 Alcohol intake Ex-drinker (finding) [facility] Work Phone: Start: 07-24-2023 End: 03-05-2024 Exposure to SARS-CoV-2 (event) Not sure [facility] How often to you hav e a drink containing alcohol? Never [facility] Work Phone: Start: 10-27-2023 End: 11-23-2023 Tobacco use and exposure User of smokeless tobacco [facility] Work Phone: How hard is it for y ou to pay for the very basics like food, housing, medical care, and heating Not very hard [facility] Work Phone: In the past 12 month s, was there a time when you were not able to pay the mortgage or rent on time? No [facility] Work Phone: Start: 11-23-2023 Tobacco Comment vapes [facility] Work Phone: Start: 01-23-2024 End: 02-02-2024 Exposure to SARS-CoV-2 (event) Unable to assess [facility] Medical Equipment Procedure Code Equipment Code Equipment Origin al Text Equipment Identifier Dates See Instructions , Brand as covered Diagnosis E11.9 Patient is not insulin independent Check blood sugars daily, # 100 EA, 0 Refill(s), Pharmacy: [facility], 160, cm, 09/14/23 9:08:00 EST, Height, 214, kg, 09/14/23 9:08:00 EST, Dosing Weight Start: 09-29-2023 See Instructions , Brand as covered Diagnosis E11.9 Patient is not insulin independent Check blood sugars daily, # 100 EA, 0 Refill(s), Pharmacy: [email or web address] #30, 160, cm, 09/14/23 9:08:00 EST, Height, 214, kg, 09/14/23 9:08:00 EST, Dosing Weight Start: 09-29-2023 Kit, Power Port, Chris, Isp Implantable With 8fr Cath - [id number] Start: 10-18-2023 See Instructions , Brand as covered Diagnosis E11.9 Patient is not insulin independent Check blood sugars daily, # 100 EA, 0 Refill(s), Pharmacy: [email or web address] #30, 160, cm, 09/14/23 9:08:00 EST, Height, 214, kg, 09/14/23 9:08:00 EST, Dosing Weight Start: 09-29-2023 See Instructions , Brand as covered Diagnosis E11.9 Patient is not insulin independent Check blood sugars daily, # 100 EA, 0 Refill(s), Pharmacy: [facility] #30, 160, cm, 09/14/23 9:08:00 EST, Height, 214, kg, 09/14/23 9:08:00 EST, Dosing Weight Start: 09-29-2023 See Instructions , BD UF 8mm 31 G (short) Use 4 pen needles daily to inject insulin qs 1 month supply, # 1 EA, 11 Refill(s), Pharmacy: [email or web address] #30, 160, cm, 10/17/23 15:51:00 EST, Height, 104.5, kg, 10/17/23 15:51:00 EST, Dosing Weight Start: 10-26-2023 Stent, Axios, W/ Electrocautery, 20mm X 10mm, Enhanced - [id number] Start: 11-14-2023 Stent Set, Zimmo n Biliary, 7fr 4cm - [id number] Start: 11-14-2023 See Instructions , Brand as covered Diagnosis E11.9 Check blood sugars daily, # 100 EA, 0 Refill(s), Pharmacy: [facility] #30, 160, cm, 01/02/24 14:52:00 EDT, Height, 109.1, kg, 01/02/24 14:52:00 EDT, Dosing Weight Start: 01-02-2024 See Instructions , Brand as covered Diagnosis E11.9 Patient is not insulin independent Check blood sugars daily, # 100 EA, 0 Refill(s), Pharmacy: [email or web address] #30, 160, cm, 01/02/24 14:52:00 EDT, Height, 109.1, kg, 01/02/24 14:52:00 EDT, Dosing Weight Start: 01-02-2024 See Instructions , BD UF 8mm 31 G (short) Use 4 pen needles daily to inject insulin qs 1 month supply, # 1 EA, 11 Refill(s), Pharmacy: [email or web address] #30, 160, cm, 10/17/23 15:51:00 EST, Height, 104.5, kg, 10/17/23 15:51:00 EST, Dosing Weight Start: 10-26-2023 See Instructions , 1 bottle of 100 Test 4 times daily, # 1 EA, 11 Refill(s), Pharmacy: [email or web address] #30, 163, cm, 02/15/24 10:25:00 EDT, Height, 107, kg, 02/15/24 10:25:00 EDT, Dosing Weight Start: 02-15-2024 See Instructions , Brand as covered Diagnosis E11.9 Patient is insulin dependent Check blood sugars 4 times daily, # 100 EA, 3 Refill(s), Pharmacy: [email or web address] #30, 163, cm, 02/15/24 10:25:00 EDT, Height, 107, kg, 02/15/24 10:25:00 EDT, Dosing Weight Start: 02-15-2024 See Instructions , BD UF 8mm 31 G (short) Use 4 pen needles daily to inject insulin qs 1 month supply, # 1 EA, 11 Refill(s), Pharmacy: [email or web address] #30, 160, cm, 10/17/23 15:51:00 EST, Height, 104.5, kg, 10/17/23 15:51:00 EST, Dosing Weight Start: 10-26-2023 True Metrix Gluc ose Test Strip, Check blood sugars daily] Start: 02-15-2024 Functional Status Date Assessment Result Facility 10-17-2023 Functional Status Assistive Device None A [facility] 10-17-2023 Functional Status Standard Safet y ID band on, Allergy Band on, Call device within reach, Bed in low position, Wheels locked, Upper/Half-Length side-rails up, Phone within reach, personal items within reach [facility] 06-03-2023 Functional Status ID band on, Allergy Band on, Call device within reach, Bed in low position, Wheels locked, Visitor at bedside [facility] 06-03-2023 Functional Status Sean Singh [facility] 05-23-2023 Functional Status Independent Sean [facility] 05-23-2023 Functional Status Standard Safet y ID band on, Allergy Band on, Call device within reach, Bed in low position, Wheels locked, Upper/Half-Length side-rails up, Phone within reach, personal items within reach, Bedside Cart Locked, Visitor at bedside [facility] 05-19-2023 Functional Status Activity Jayda tance Independent [facility] 05-19-2023 Functional Status Repositions [facility] 05-09-2023 Functional Status ID band on, Allergy Band on, Call device within reach, Bed in low position, Wheels locked, Upper/Half-Length side-rails up, Phone within reach [facility] 05-09-2023 Functional Status Sena [facility] 04-29-2023 Functional Status Identified as high risk, Door open, Agency Development Manager at bedside [facility] 04-29-2023 Functional Status Sean Singh [facility] 04-29-2023 Functional Status Ambulation Amb ulation in Fitch 1 [facility] 04-29-2023 Functional Status Positioning Repositions [facility] 04-29-2023 Functional Status Sean Singh [facility] 04-29-2023 Functional Status Sean [facility] 04-25-2023 Functional Status Up ad cony Sean Singh [facility] 04-25-2023 Functional Status Sean [facility] 04-25-2023 Functional Status Environmental Safety Implemented Adequate room lighting, Bed in low position, Call device within reach, Non-Slip footwear, Personal items within reach, Traffic path in room free of clutter, Wheels locked [facility] 04-25-2023 Functional Status Sean Singh [facility] 04-25-2023 Functional Status Sean Singh [facility] 04-03-2023 Functional Status Room check performed [facility] 04-02-2023 Functional Status Sean Singh [facility] 04-02-2023 Functional Status Sean Singh [facility] 04-02-2023 Functional Status Sean Singh [facility] 04-02-2023 Functional Status 100 Sean [facility] 04-01-2023 Functional Status Sensory Deficits None A [facility] 03-11-2023 Functional Status Room check performed [facility] 03-11-2023 Functional Status Sean Singh [facility] 03-11-2023 Functional Status Breakfast Percent 50 [facility] 03-11-2023 Functional Status Sean Singh [facility] 03-11-2023 Functional Status Demonstrates C orrect Call Light Use Yes [facility] 03-11-2023 Functional Status Sean Singh [facility] 03-10-2023 Functional Status Sean Singh [facility] 03-09-2023 Functional Status Sean Singh [facility] 03-09-2023 Functional Status Lunch Percent 100 [facility] 03-08-2023 Functional Status Home managemen t, Housework, Laundry, Meal preparation, Personal ADL [facility] 03-07-2023 Functional Status None Sean Singh [facility] 01-25-2023 Functional Status Up ad cnoy Sean [facility] 12-06-2022 Functional Status Assistive Device None A [facility] 11-13-2022 Functional Status Independent Sean [facility] 11-13-2022 Functional Status Standard Safet y ID band on, Allergy Band on, Call device within reach, Bed in low position, Wheels locked, Upper/Half-Length side-rails up, Phone within reach, personal items within reach, Assistive devices within reach, Toileting device within reach, Bedside Cart Locked, Visitor at bedside, Safety level maintained [facility] 11-13-2022 Functional Status Ambulating in fitch, Ambulating in room, Awake [facility] 11-12-2022 Functional Status Standard Safet y ID band on, Allergy Band on, Call device within reach, Bed in low position, Wheels locked, Upper/Half-Length side-rails up, personal items within reach [facility] 10-19-2022 Functional Status Awake, Repositions self [facility] 10-19-2022 Functional Status Ambulation in Fitch [facility] 10-19-2022 Functional Status [facility] 10-18-2022 Functional Status Independent [facility] 10-18-2022 Functional Status Standard Safet y ID band on, Allergy Band on, Call device within reach, Bed in low position, Wheels locked [facility] 07-27-2022 Functional Status ID band on, Call device within reach, Bed in low position, Wheels locked, Upper/Half-Length side-rails up [facility] 07-27-2022 Functional Status Awake, Repositions [facility] 06-22-2022 Functional Status Yes [facility] 06-22-2022 Functional Status Room check performed [facility] 06-22-2022 Functional Status [facility] 06-22-2022 Functional Status [facility] 06-21-2022 Functional Status [facility] 06-21-2022 Functional Status [facility] 06-21-2022 Functional Status Done [facility] 06-20-2022 Functional Status bilateral knee high [facility] 06-20-2022 Functional Status NPO Status Initiated [facility] 06-19-2022 Functional Status Lunch Percent 50 [facility] 06-19-2022 Functional Status Breakfast Percent 25 [facility] 06-19-2022 Functional Status Activity Jayda tance Independent [facility] 06-19-2022 Functional Status SCD On/Re-appl ied bilateral knee high [facility] 06-19-2022 Functional Status Hospital bed [facility] 06-19-2022 Functional Status Sean [facility] 06-18-2022 Functional Status Sean [facility] 06-18-2022 [facility] 06-18[facility] Functional Status Living Situati on Lives with significant other [facility] 06-17-2022 Functional Status Assistive Device None A [facility] 06-17-2022 Functional Status Standard Safet y ID band on, Call device within reach, Bed in low position [facility] 04-12-2022 Functional Status Up ad cony [facility] 03-10-2022 Functional Status Independent [facility] 03-10-2022 Functional Status Standard Safet y ID band on, Allergy Band on, Call device within reach, Bed in low position, Wheels locked, Upper/Half-Length side-rails up, Phone within reach, personal items within reach [facility] 02-11-2022 Functional Status Room check performed [facility] 02-11-2022 Functional Status [facility] 02-02-2022 Functional Status [facility] 02-02-2022 Functional Status [facility] Functional observable [facility] Mental Status Date Assessment Result Facility 10-17-2023 Mental Status Orientation Oriented x 4 [facility] 10-17-2023 Mental Status [facility] 06-16-2023 Cognitive functi ons [id number] [facility] 06-03-2023 Mental Status Orientation Oriented x 4 [facility] 06-03-2023 Mental Status [facility] 05-23-2023 Mental Status Orientation Oriented x 4 [facility] 05-23-2023 Mental Status [facility] 05-19-2023 Mental Status Orientation Oriented x 4 [facility] 05-19-2023 Mental Status [facility] 05-16-2023 Cognitive functi ons [id number] [facility] 05-09-2023 Mental Status Orientation Oriented x 4 [facility] 05-09-2023 Mental Status [facility] 04-29-2023 Mental Status Orientation Does not intera ct [facility] 04-26-2023 Cognitive functi ons :01 [facility] 04-25-2023 Mental Status Oriented x 4 [facility] 04-25-2023 Mental Status [facility] 04-02-2023 Mental Status Oriented x 4, Follows simple commands [facility] 04-02-2023 Mental Status [facility] 04-01-2023 [facility] 04-01-2023 [facility] Status [facility] 03-11-2023 Mental Status Oriented x 4 [facility] 03-11-2023 Mental Status [facility] 03-10-2023 Mental Status [facility] 01-25-2023 Mental Status Orientation Oriented x 4 [facility] 01-25-2023 Mental Status [facility] 12-06-2022 Mental Status Orientation Oriented x 4 [facility] 11-13-2022 Mental Status Orientation Oriented x 4 [facility] 11-13-2022 Mental Status [facility] 11-13-2022 Mental Status Orientation Oriented x 4 [facility] 11-12-2022 Mental Status [facility] 10-19-2022 Mental Status Oriented x 4 [facility] 10-19-2022 Mental Status [facility] 10-18-2022 Mental Status Orientation Oriented x 4 [facility] 10-18-2022 Mental Status [facility] 07-27-2022 Mental Status Orientation Oriented x 4 [facility] 07-27-2022 Mental Status [facility] 06-22-2022 Mental Status Orientation Orie nted x 4, Follows simple commands [facility] 06-22-2022 Mental Status [facility] 06-21-2022 Mental Status [facility] 06-20-2022 Mental Status [facility] 06-19-2022 Mental Status [facility] 06-17-2022 Mental Status Orientation Oriented x 4 [facility] 06-17-2022 [facility] 04-12-2022 Mental Status Oriented x 4 [facility] 03-10-2022 Mental Status Orientation Oriented x 4 [facility] 03-10-2022 Mental Status [facility] 02-11-2022 Mental Status Orientation Oriented x 4 [facility] 02-11-2022 Mental Status [facility] 02-02-2022 Mental Status [facility] 02-02-2022 Mental Status [facility] Clinical Notes 04-29-2021 to 06-16-2024 Odilia Gunn APRN.SPECIAL NEEDS TEACHER - 06/16/2024 11:23 AM EDTTelephone Hortencia - [...] take her self. documented in this encounter [facility] 06-14-2024 Note HNO ID: [id number] Author: LYNN MAIER MD Service: ? Author [...] and sent to Pathology. Lynn Maier MD [facility] 06-12-2024 Telephone encounter Note Received prior auth for Baclofen, will disregard since it looks like patient has already picked up medication. Jude Dominguez MA [facility] 06-12-2024 Miscellaneous Notes Received prior auth [...] Elyse Rosales RN documented in this encounter [facility] 06-11-2024 Telephone encounter Note Called patient and states she is starting to feel a little better. Patient states she already has lidocaine gel and patches at home and was using them, but not helping a whole lot. Cj Downey RN [facility] 06-11-2024 Telephone encounter Note Noted. I can order some topical lidocaine if she was to try that. Laury Orr APRN.HAMLET [facility] 06-11-2024 Telephone encounter Note Patient calling [...] though. Please advise. Elyse Rosales RN T [facility] 06-08-2024 Note HNO ID: [id number] Author: LAURY ORR APRN.HAMLET Service: ? Author [...] L2 SAB0 IAB0 Ectopic0 Multiple0 Live Births0 Boiler/Chiller Operator History LMP: Hysterectomy Age at Menarche: Age at First : Age at Menopause: Boiler/Chiller Operator History Comments: Sexual Activity: Yes; Male Contraception: [...] COLLECTION SPECIMEN BRUSHING/WASHING 06/11/15 Cholangiopancreatography (ERCP) inpt [facility] ESOPHAGOGASTRODUODENOSCOPY TRANSORAL DIAGNOSTIC EGD [facility] FILTER TONSILLECTOMY [...] DAILY, # 28 tab(s), 5 Refill(s), Pharmacy: [place] [facility] [id number], 161, cm, 02/06/20 14:12:00 EDT, Height, kg, [...] discussed with the Patient or Patient's Authorized Plant Operations Coordinator. As applicable, any other physician, advance practice provider, medical student, or other health professional student that will be observing or involved in the (more content not included)... [facility] 06-08-2024 History of Present illness Narrative [...] L2 SAB0 IAB0 Ectopic0 Multiple0 Live Births0 Boiler/Chiller Operator History LMP: Hysterectomy Age at Menarche: Age at First : Age at Menopause: Boiler/Chiller Operator History Comments: Sexual Activity: Yes; Male Contraception: [...] COLLECTION SPECIMEN BRUSHING/WASHING 06/11/15 Cholangiopancreatography (ERCP) inpt [facility] ESOPHAGOGASTRODUODENOSCOPY TRANSORAL DIAGNOSTIC EGD [facility] FILTER TONSILLECTOMY [...] DAILY, # 28 tab(s), 5 Refill(s), Pharmacy: [facility] [id number], 161, cm, 02/06/20 14:12:00 EDT, Height, kg, [...] discussed with the Patient or Patient's Authorized Plant Operations Coordinator. As applicable, any other physician, advance practice provider, medical student, or other health professional student that will be observing or involved in the sensitive examination for educational or training purposes was discussed with the Patient or Authorized Plant Operations Coordinator. The Patient or Authorized Plant Operations Coordinator has agreed to proceed with the sensitive [...] 3 - Low documented in this encounter [facility] 05-31-2024 Note HNO ID: [id number] Author: LYNN MAIER MD Service: ? Author Type: Physician Type: Progress Notes Filed: 05/31/2024 15:36 Note Text: The sensitive examination was discussed with the Patient or Patient's Authorized Plant Operations Coordinator. As applicable, any other physician, advance practice provider, medical student, or other health professional student that will be observing or involved in the sensitive examination for educational or training purposes was discussed with the Patient or Authorized Plant Operations Coordinator. The Patient or Authorized Plant Operations Coordinator has agreed to proceed with the sensitive examination. (Sensitive examination includes inspection and/or palpation of the breasts, pelvis, prostate and anorectal regions) Component Assembler Supervisor offered: Patient declines. Dorothea Rutledge is a [...] OB History No obstetric history on file. Boiler/Chiller Operator History LMP: Hysterectomy Age at Menarche: Age at First : Age at Menopause: Boiler/Chiller Operator History Comments: Sexual Activity: Yes; Male Contraception: [...] COLLECTION SPECIMEN BRUSHING/WASHING 06/11/15 Cholangiopancreatography (ERCP) inpt [facility] ESOPHAGOGASTRODUODENOSCOPY TRANSORAL DIAGNOSTIC EGD [facility] FILTER TONSILLECTOMY [...] skin retraction. Exp (more content not included)... [facility] 05-31-2024 History of Present illness Narrative The sensitive examination was discussed with the Patient or Patient's Authorized Plant Operations Coordinator. As applicable, any other physician, advance practice provider, medical student, or other health professional student that will be observing or involved in the sensitive examination for educational or training purposes was discussed with the Patient or Authorized Plant Operations Coordinator. The Patient or Authorized Plant Operations Coordinator has agreed to proceed with the sensitive examination. (Sensitive examination includes inspection and/or palpation of the breasts, pelvis, prostate and anorectal regions) Component Assembler Supervisor offered: Patient declines. Dorothea Rutledge is a [...] OB History No obstetric history on file. Boiler/Chiller Operator History LMP: Hysterectomy Age at Menarche: Age at First : Age at Menopause: Boiler/Chiller Operator History Comments: Sexual Activity: Yes; Male Contraception: [...] COLLECTION SPECIMEN BRUSHING/WASHING 06/11/15 Cholangiopancreatography (ERCP) inpt [facility] ESOPHAGOGASTRODUODENOSCOPY TRANSORAL DIAGNOSTIC EGD [facility] FILTER TONSILLECTOMY [...] ABDOMEN: Deferred PELVIC: normal Bartholin's glands, urethra, Sleepy Eye's glands, vulvar lesion skin tag on perineum. 6 o'clock in reference to introitus BIMANUAL: deferred NEURO: alert and oriented x3,exam grossly non-focal EXTREMITIES: normal ASSESSMENT AND PLAN: Encounter Diagnosis ICD-10-CM 1. Vulvar skin tag N90.89 SURGICAL PATHOLOGY 2. Vaginal yeast infection B37.31 Skin tag removed Lynn Maier MD documented in this encounter [facility] 03-05-2024 Hospital Discharge instructions Sally Bourgeois PA-C - 03/05/2024 6:20 PM EDT Hold your Coumadin tonight. Please call the Coumadin clinic tomorrow to discuss how to move forward. The following attachments cannot be sent through Care Everywhere.Taking oral medicines for blood clots (Liberian)documented in this encounter [facility] Work Phone: 03-05-2024 Emergency department [...] Substances: Nicotine, have a marijuana card Devices: [employer] Substance Use Topics Alcohol use: Not Currently [...] bleeding at time of exam Mouth/Throat: Lips: [place]. No lesions. Mouth: Mucous membranes are moist. [...] bpm. Normal axis. No ST segment elevation. MD interval 136 with a QT of 328 Procedure Procedures Sally Bourgeois PA-C 03/05/24 1177 documented in this encounter [facility] Work Phone: 03-05-2024 Physician Emergency [...] currently on Coumadin. History provided by: Patient [place] Coma Scale Score: 15 Patient History Past [...] Substances: Nicotine, have a marijuana card Devices: [employer] Substance Use Topics Alcohol use: Not Currently [...] bleeding at time of exam Mouth/Throat: Lips: [place]. No lesions. Mouth: Mucous membranes are moist. [...] bpm. Normal axis. No ST segment elevation. MD interval 136 with a QT of 328 Procedure Procedures Sally Bourgeois PA-C 03/05/241836 [facility] Work Phone: 03-02-2024 History of Present illness Narrative Dorothea Rutledge is a 48 y.o. female on day 3 of admission presenting with Acute pancreatitis without necrosis or infection, unspecified ([facility]). Subjective Patient seems to be feeling [...] so. No further CT/SW assistance needs anticipated. Dividend Clerk and CARINA/Yamilet met with patient at bedside to listen as patient discussed concerns related to patient's hospital discharge today. SW and CARINA/Yamilet offered support and understanding. Patient decided to appeal hospital discharge; SW supported patient during phone call to [facility]. - 1730: SW attached/uploaded all supporting documentation for [place] appeal to [facility] portal. Appeal Case no. [id number]. Plan for patient to return home pending outcome of discharge appeal with [facility]. Care Transitions to follow and assist. FLORENTINO [...] while on Lovenox. [facility] about patient medication concerns and she would like to be therapeutic before leaving. Provider feels she can safely bridge medications at home and be set up with out patient coumadin clinic to maintain therapeutic levels. Yamilet Garcia RN/TCC - [phone] Returned to patient room with SW at [...] Follow-up Continue Visiting: Yes Referral To: Nurse Jehovah'S Witness Encounters Jehovah'S Witness Needs: Sacred text, Literature, Spiritual care brochure, [...] (Level of Unmet Needs) Existential Struggle: Some Spiritual/Jehovah'S Witness Struggle: Further assess Legacy: Further assess Relationships: [...] Acute pancreatitis without necrosis or infection, unspecified ([facility]) Results for orders placed or performed [...] urgent cholecystectomy in mid January. Transferred to [facility] for treatment of pancreatitis. Ended up here after discharge from [facility] with recurrent pancreatitis. Transaminases again have normalized. Pain is consistent with acute pulmonary emboli. Now dealing with chronic constipation related to her narcotic abuse. OARRS report was reviewed. Patient receiving multiple narcotics and controlled drugs from multiple practitioners traveling from [facility] to walk but cannot her to [...] Acute pancreatitis without necrosis or infection, unspecified ([facility]). Subjective Patient laying in bed requesting additional [...] the discretion of her vascular doctor or wrapping machine helper. Patient also requested an increase in dose [...] 9:53:18 PM Lower extremity venous duplex bilateral [place] [id number], Vascular Lab Report [facility] LOWER EXTREMITY VENOUS DUPLEX BILATERAL Patient Name: DOROTHEA Lees Physician: [id number] Princess Ramírez MD Study Date: 02/28/2024 Ordering Provider: [id number] BREA NOLEN MRN/PID: [id number] Fellow: Technologist: Radha Lewis RVT/AB Date of /Age: 4 1975 Technologist 2: years Gender: F Admission Status: Inpatient Location [facility] Performed: Diagnosis/ICD: Other pulmonary embolism without acute cor pulmonale-I26.99 CPT Codes: 89806 Peripheral venous duplex scan for DVT complete [...] Popliteal Yes None Spontaneous/Phasic Peroneal Yes None [id number] Ramírez MD Final Transthoracic Echo (TTE) Complete [place] [id number], TRANSTHORACIC ECHOCARDIOGRAM REPORT Patient Name: DOROTHEA Lees Physician: [id number] Leon Barrera MD Study Date: 02/28/2024 Ordering Provider: [id number] BREA NOLEN MRN/PID: [id number] Fellow: Nurse: Elyssa Simental RN Date of /Age: 4 1975 / 48 years Recreation Adviser: BUNNY Higuera RVT Gender: F Additional Staff: Height: 162.56 cm Admit Date: 02/27/2024 Weight: 102.51 kg Admission Status: Inpatient - Routine BSA / BMI: 2.06 m2 / 38.79 kg/m2 Department Location: [address] Blood Pressure: 147 /81 mmHg Study Type: TRANSTHORACIC ECHO (TTE) COMPLETE Diagnosis/ICD: Single subsegmental Pulmonary embolism without acute cor pulmonale-I26.93 Indication: PE CPT Codes: Echo Complete w Full Doppler-[id number] Patient History: Pertinent History: No previous echo. [...] LA Area A2C: 13.5 cm2 LA [place] A4C: 5.2 cm LA [place] A2C: 5.5 cm LA Volume Index: 13.1 [...] 1.6 m/s (0.6-0.9m/s) PV Max P.6 mmHg [id number] Leon Barrera MD Electronically signed on 02/28/2024 at 10:49:[address] angio chest for pulmonary embolism Narrative: STUDY: CT Angiogram of the Chest; 02/27/2024 11:09 PM INDICATION: Filling defect in right lower lobe. History of pulmonary embolism. COMPARISON: None Available. ACCESSION NUMBER(S): [id number] ORDERING CLINICIAN: MIKE LAND TECHNIQUE: CTA of [...] Chronic pain syndrome -Managed by Dr.Kutaiba Rasmussen [facility] -Will reach out to Dr. Rasmussen [...] addressed that issue immediately. ADOD is 24hrs. [facility] . CT to follow. Oneida SANCHEZ/RN-TCC 02/28/24 [...] place to sleep or slept in a alf (including now)? N Transportation Needs In the [...] story home. PCP is Dr. Rivera at [facility] currently, however, they will no longer be taking her insurance and she is looking for a new PCP. List provided of [place] PCP's available for new patients. Her pharmacy of choice is [facility] in [place] for prescription needs. She is independent at home with ADL's. She can drive but does not drive long distances or very often. Her mode of transportation is her mom and significant other. Denies the need for any diabetic supplies. She States she is in need of a shower chair however her insurance does not cover this DME. Discussed [facility] for free DME when they have it available; resource flyer provided with address and phone number. [facility] . Plan is to return home with significant other when discharged. No further needs or in home services at this time. Care team to follow. Yamilet Garcia RN/TCC documented in this encounter [facility] Work Phone: 03-01-2024 Plan of [...] Outcome: Progressing Goal: Electrolytes WNL Outcome: Progressing [facility] 03-01-2024 Miscellaneous Notes The patient's goals for [...] Xarelto was again changed to Lovenox at [facility]. This admission patient comes back with pulmonary [...] PRN pain medication documented in this encounter [facility] Work Phone: 03-01-2024 Nurse Note [...] with pt and verbalizes understanding. Finn VILLANUEVA [facility] 03-01-2024 Nurse Note Discharge Note: [...] understanding. Finn RN documented in this encounter [facility] Work Phone: 03-01-2024 Hospital course [...] 12,000-38,000 -60,000 unit capsule Generic drug: pancrelipase (Naf-Ivfo-Szos) Take 2 capsules by mouth 3 times [...] Your Medications These medications were sent to [facility] [address] [address] Hours: 8 AM to 5:30 Mon-Fri, 8 [...] urgent cholecystectomy in mid January. Transferred to [facility] for treatment of pancreatitis per the patient as we spoke. Ended up here after discharge from [facility] with recurrent pancreatitis. Transaminases again have normalized. [...] medicines and will need to follow-up with face painter Currently hemodynamically stable for DC home [...] subsequently led to pancreatitis and transferred to [facility] for that. Then she is here again [...] Center 03/09/2024 2:20 PM Kirby Guillen MD [id number] [facility] 03/14/2024 8:00 AM INF 03 PARM OPCTR [facility]INF [place] 03/28/2024 7:30 AM INF 02 [facility] [place] 04/09/2024 11:00 AM Colton Hicks MD [id number] [facility] 04/11/2024 10:00 AM INF 03 PARM OPCTR [facility] [place] 04/25/2024 8:30 AM INF 02 [facility]CTR [facility] [place] Time to dc > 35 mins Brea Nolen MD documented in this encounter [facility] Work Phone: 03-01-2024 Plan of [...] Outcome: Progressing Goal: Electrolytes WNL Outcome: Progressing [facility] 02-29-2024 Consult note Associated Order (s): PHARMACY [...] 5 Leiden mutation, heterozygous (Multi) (Chronic) D68.[address] [facility] Coag Clinic patient - No Ordering [...] patient does live quite a distance away ([facility]) so she may need to go back to her PCP or a coag clinic near her home for management. [facility] Work Phone: 02-29-2024 Consult note [...] 5 Leiden mutation, heterozygous (Multi) (Chronic) D68.[address] [facility] Coag Clinic patient - No Ordering [...] patient does live quite a distance away ([facility]) so she may need to go back to her PCP or a coag clinic near her home for management. Consults Reason For Consult Possible pancreatitis History Of Present Illness Dorothea Rutledge is a 48 y.o. 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 Underwent drainage of pancreatic pseudocyst endoscopically January [address] Mason Agrawal at [facility]. Had uneventful drainage procedure and then developed acute complicated cholecystitis surgery was performed at [facility]. Underwent ERCP after surgery for retained bile duct stone. Stent was placed and 1 stone was unable to be retrieved. Because of worsening symptoms of pancreatitis was ultimately transferred to [facility] for further evaluation. Patient resolved with medical management only. Within a week of discharge from [facility] she was presented to our ER with [...] from multiple pharmacies throughout the state including [facility] but can add a, [place], [place], [place] and [place]. Patient has prior history of narcotic abuse [...] Units, subcutaneous, TID [Held by provider] pancrelipase (Mdu-Bzji-Cidc), 2 capsule, oral, TID pantoprazole, 40 mg, [...] (kCal): 2000 kCal Method for Estimating Needs: [place] [address] Lyn = kcal Total Protein Estimated [...] diet monitor for ability to advance to [facility] Collaboration and Referral of Nutrition Care: Team [...] Paez RDN, LD documented in this encounter [facility] Work Phone: 02-29-2024 Consult note Formatting of th is note is different from the original. Consults Reason For Consult Possible pancreatitis History Of Present Illness Dorothea Rutledge is a 48 y.o. 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 Underwent drainage of pancreatic pseudocyst endoscopically January [address] Mason Agrawal at [facility]. Had uneventful drainage procedure and then developed acute complicated cholecystitis surgery was performed at [facility]. Underwent ERCP after surgery for retained bile duct stone. Stent was placed and 1 stone was unable to be retrieved. Because of worsening symptoms of pancreatitis was ultimately transferred to [facility] for further evaluation. Patient resolved with medical management only. Within a week of discharge from [facility] she was presented to our ER with [...] including well but can add a, [place], [place], [place] and [place]. Patient has prior history of narcotic abuse [...] professional and overall care of this patient. [facility] Work Phone: 02-29-2024 Note Formatting of this [...] Xarelto was again changed to Lovenox at [facility]. This admission patient comes back with pulmonary embolus because she missed 1 dose. The patient is requesting to be back on warfarin. I had recommended patient still needs a heme-onc opinion when she goes as outpatient. Discussed with pharmacy about the issue and they were on board. Will start warfarin 5 mg and check daily INR. We have already on heparin for bridging. [facility] Work Phone: 02-29-2024 Consult note Associated Order [...] Units, subcutaneous, TID [Held by provider] pancrelipase (Frc-Gwyi-Wync), 2 capsule, oral, TID pantoprazole, 40 mg, [...] (kCal): 2000 kCal Method for Estimating Needs: [place] = kcal Total Protein Estimated Needs [...] diet monitor for ability to advance to [facility] Collaboration and Referral of Nutrition Care: Team [...] advance, po, labs Alaina Paez RDN, LD [facility] Work Phone: 02-29-2024 Plan of care note The patient's goals for the shift include pain control The clinical goals for the shift include pain control Pt c/o pain in mid to lower abd and around R rib area. Pain controlled with PRN medication. [facility] Work Phone: 02-28-2024 Plan of care note [...] by end of shift Outcome: Progressing . [facility] 02-28-2024 Note Formatting of this n ote [...] at at bedtime. Long discussion on polypharmacy. [facility] Work Phone: 02-28-2024 Plan of care note The patient's goals for the shift include pain control The clinical goals for the shift include pain control Over the shift, the patient had tolerable pain control with prescribed PRN pain medication [facility] Work Phone: 02-28-2024 History and physical note [...] 10/16/2017 MR HEAD ANGIO WO IV CONTRAST [facility] MR NECK ANGIO WO IV CONTRAST 10/16/2017 MR NECK ANGIO WO IV CONTRAST [facility] US GUIDED PERCUTANEOUS PLACEMENT 06/08/2019 US GUIDED PERCUTANEOUS PLACEMENT [facility] Social History She reports [...] succinate XL, 25 mg, oral, Daily pancrelipase (Bxm-Jawa-Mund), 2 capsule, oral, TID pantoprazole, 40 mg, [...] Yellow, Dark-Yellow Appearance, Urine Clear Clear Specific [place], Urine 1.033 1.005 - 1.035 pH, Urine [...] pulmonary embolism. COMPARISON: None Available. ACCESSION NUMBER(S): [id number] ORDERING CLINICIAN: MIKE LAND TECHNIQUE: CTA of [...] Signs/Symptoms:diffuse abdominal pain. COMPARISON: 02/15/2024. ACCESSION NUMBER(S): [id number] ORDERING CLINICIAN: HEMALATHA JACOBSON TECHNIQUE: Axial CT [...] Letha Jade 02/27/2024 9:21 PM Dictation workstation: [id number] All data reviewed by me independently Assessment/Plan [...] as clinical course evolves Brea Nolen MD [facility] Work Phone: 02-28-2024 History and [...] succinate XL, 25 mg, oral, Daily pancrelipase (Osy-Fhzq-Pmql), 2 capsule, oral, TID pantoprazole, 40 mg, [...] 125 mL/hr, Last Rate: 125 mL/hr (02/28/24 2179) PRN medications PRN medications: acetaminophen OR acetaminophen [...] Yellow, Dark-Yellow Appearance, Urine Clear Clear Specific [place], Urine 1.033 1.005 - 1.035 pH, Urine [...] pulmonary embolism. COMPARISON: None Available. ACCESSION NUMBER(S): [id number] ORDERING CLINICIAN: MIKE LAND TECHNIQUE: CTA of [...] Signs/Symptoms:diffuse abdominal pain. COMPARISON: 02/15/2024. ACCESSION NUMBER(S): [id number] ORDERING CLINICIAN: HEMALATHA JACOBSON TECHNIQUE: Axial CT [...] Letha Jade 02/27/2024 9:21 PM Dictation workstation: [id number] All data reviewed by me independently Assessment/Plan [...] Brea Nolen MD documented in this encounter [facility] Work Phone: 02-27-2024 Emergency department [...] Color, Urine Light-Yellow Appearance, Urine Clear Specific [place], Urine 1.033 pH, Urine 6.5 Protein, Urine [...] Abnormality Status --------- ------ Urinalysis with Reflex C...[[id number]] Abnormal Final result Extra Urine Vaca Tube[[id number]] Please view results for these tests on [...] Letha Jade 02/27/2024 9:21 PM Dictation workstation: [id number] CT angio chest for pulmonary embolism (Results [...] Letha Jade 02/27/2024 9:21 PM Dictation workstation: [id number] Diagnoses as of 02/28/24 032 Pulmonary embolism [...] Gay MD 02/28/24324 documented in this encounter [facility] Work Phone: 02-27-2024 Physician Emergency [...] Color, Urine Light-Yellow Appearance, Urine Clear Specific [place], Urine 1.033 pH, Urine 6.5 Protein, Urine [...] Abnormality Status --------- ------ Urinalysis with Reflex C...[[id number]] Abnormal Final result Extra Urine Vaca Tube[[id number]] Please view results for these tests on [...] Letha Jade 02/27/2024 9:21 PM Dictation workstation: [id number] CT angio chest for pulmonary embolism (Results [...] in ED Course. Hemalatha Jacobson PA-C 02/27/242221 [facility] Work Phone: 02-27-2024 Physician Emergency [...] Letha Jade 02/27/2024 9:21 PM Dictation workstation: [id number] Diagnoses as of 02/28/24 032 Pulmonary embolism [...] Procedure Procedures MD Mike Gay MD 02/28/24324 [facility] Work Phone: 02-02-2024 History of Present illness [...] as stated. This study was interpreted at [facility], [place], [place]. MACRO: None Electronically signed by: CARISSA [...] Therapies: IV infusions documented in this encounter [facility] Work Phone: 12-08-2023 Nurse Note 12/08/2023 Nursing Note: Patient discharged to home with Meds to bed from [facility] pharmacy. RN discussed discharge instructions with Patient. Patient verbalized understanding and copy of After Visit summary given to patient [facility] 12-08-2023 Nurse Note 12/08/2023 Nursing Note: Patient discharged to home with Meds to bed from [facility]. RN discussed discharge instructions with Patient. Patient verbalized understanding and copy of After Visit summary given to patient documented in this encounter [facility] Work Phone: 12-08-2023 Plan of [...] by patient and taken for discharge home. [facility] 12-08-2023 Miscellaneous Notes The patient's [...] toward the following goals. Patient admitted to [place] [address] from the endoscopy suite. Patient c/o elevated [...] throughout the shift Outcome: Progressing SEE EXCELLENT SURGICAL DRESSING MAKER'S NOTE FOR FURTHER DETAILS FOR H&P History [...] ROS unless stated above. On arrival to [facility]: There were no vitals taken for this [...] status: Full code NOK: Lizz Dockery - [phone] Johan Burton MD documented in this encounter [facility] Work Phone: 12-08-2023 Hospital course [...] 12,000-38,000 -60,000 unit capsule; Generic drug: pancrelipase (Itu-Elny-Jysu); Take 2 capsules by mouth 3 times [...] 8:00 AM INF 04 PARM OPCTR PAROPCINF [place] 01/04/2024 8:00 AM INF 03 PARM OPCTR PAROPCINF [place] 01/04/2024 11:00 AM Colton Hicks MD [id number] [facility] 01/04/2024 1:00 PM Sun Galloway MD [id number] [facility] 01/18/2024 8:30 AM INF 02 PARM OPCTR PAROPCINF [place] 02/01/2024 8:30 AM INF 01 PARM OPCTR PAROPCINF [place] 02/15/2024 8:30 AM INF 02 PARM OPCTR PAROPCINF [place] Nancy Agrawal MD documented in this encounter [facility] Work Phone: 12-08-2023 Hospital Discharge instructions Andreea Gandhi MD - 12/08/2023 12:21 PM EDT Discharge Instructions Dear Dorothea Rutledge, You were admitted to [facility] as you were unable to have your [...] them in next few days, please call [facility] appointment line: [phone] or You have an appointment with Dr. Galloway (Vascular Medicine) on 01/03 You have an appointment with Dr. Hicks (GI) on 01/03 It was a pleasure taking care of you, Your Care Team documented in this encounter [facility] Work Phone: 12-08-2023 Hospital Note [...] with Vascular Medicine and GI follow up. [facility] Work Phone: 12-08-2023 Plan of care note [...] not make progress toward the following goals. [facility] 12-07-2023 Note Formatting of this n ote might be different from the original. Abdomen [facility] 12-07-2023 Plan of care note Patient down [...] education by end of shift Outcome: Progressing [facility] Work Phone: 12-07-2023 History of Present illness [...] been taking 25mg metop succinate per her supervisor grading for an elevated heart rate with extra [...] oral, Daily nystatin, , Topical, q8h pancrelipase (Rti-Qehg-Vnfb), 2 capsule, oral, TID with meals polyethylene [...] Rommel Malagon. This study was interpreted at [facility], [place], [place]. MACRO: Critical Finding: See findings. Notification was initiated on 12/06/2023 at 9:31 am by Rommel Malagon. (-OCF-) Instructions: Signed by: Letha Pennington 12/06/2023 12:19 PM Dictation workstation: [id number] Lower extremity venous duplex bilateral (Results Pending) [...] (confirmed on admission) NOK: Lizz Dockery (mother) [phone] Dispo: Ideally will follow up with [facility] however patient lives in [place] Andreea Gandhi MD Internal Medicine, PGY-1 Associated [...] and restart anticoagulation. [place] [facility] and need to verify insurance coverage. 12/06/23 [...] place to sleep or slept in a alf (including now)? N Transportation Needs In the past 12 months, has lack of transportation kept you from medical appointments or from getting medications? no In the past 12 months, has lack of transportation kept you from meetings, work, or from getting things needed for daily living? No Assessment Note: Met with pt and introduced myself as child care provider and member of the Care Transitions team for discharge planning. Pt feels safe at home. Pt drives or mother provides transport to drs appts. Pt's address, phone number and contact information was verified. Pt does not have any questions/concerns at this time. Previous Home Care: None DME: glucometer, wrist BP cuff, pulse oximeter. Pharmacy: [facility] in [place]: Denies PCP: [facility] HAMLET Rivera (last seen 09/2023-has upcoming appt on next Tuesday). Priti LEWIS, RN- Transitional [place] [employer] (TCC) [phone] Dorothea Rutledge is a 47 y.o. female [...] TID AC nystatin, , Topical, q8h pancrelipase (Fnf-Dhit-Aiib), 2 capsule, oral, TID with meals polyethylene [...] Rommel Malagon. This study was interpreted at [facility], [place], [place]. MACRO: Critical Finding: See findings. Notification was initiated on 12/06/2023 at 9:31 am by Rommel Malagon. (-OCF-) Instructions: See findings. Dictation workstation: [id number] Assessment/Plan Principal Problem: Generalized abdominal pain Dorothea [...] (confirmed on admission) NOK: Lizz Dockery (mother) [phone] Dispo: Ideally will follow up with [facility] however patient lives in [place] Andreea Gandhi MD Internal Medicine, PGY-1 Associated [...] discharge on Lovenox. documented in this encounter [facility] Work Phone: 12-06-2023 Plan of [...] Recommendations to address these barriers include . [facility] 12-06-2023 Consult note Associated Order [...] placed Patient used to see hematology at [facility]. When they were able to anticoagulate [...] TID AC nystatin, , Topical, q8h pancrelipase (Lzh-Nnal-Uhtj), 2 capsule, oral, TID with meals polyethylene [...] PE Patient used to see hematology at [facility]. Was maintained on Coumadin for >20 [...] with questions or concerns Sun Galloway MD [facility] Work Phone: 12-06-2023 Consult note Associated Order [...] placed Patient used to see hematology at [facility]. When they were able to anticoagulate [...] TID AC nystatin, , Topical, q8h pancrelipase (Skv-Smxr-Vefn), 2 capsule, oral, TID with meals polyethylene [...] PE Patient used to see hematology at [facility]. Was maintained on Coumadin for >20 [...] Sun Galloway MD documented in this encounter [facility] Work Phone: 12-06-2023 Plan of [...] not make progress toward the following goals. [facility] Work Phone: 12-05-2023 Plan of care note Patient admitted to [place] [address] from the endoscopy suite. Patient c/o elevated [...] pain meds throughout the shift Outcome: Progressing [facility] Work Phone: 12-05-2023 History and physical note [...] (has no administration in time range) pancrelipase (Ggb-Gvtj-Aqox) (Creon) 12,000-38,000 -60,000 unit per capsule 2 [...] Awareness under anesthesia, Depression, Factor V Leiden ([facility]), Pancreatitis, Seizure ([facility]), and Stroke ([facility]). Surgical History She has a past [...] Tuesday, # 13 cap(s), 3 Refill(s), Pharmacy: [facility], 160, cm, [...] NAUSEA 04/28/23 04/27/24 Terry Kaiser MD pancrelipase, Dsy-Lkvv-Kpqs, (Creon) 12,000-38,000 -60,000 unit capsule Take 2 [...] (confirmed on admission) NOK: Lizz Dockery (mother) [phone] Andreea Gandhi MD Internal Medicine, PGY-1 Associated [...] cystgastrostomy and ask Vascular Medicine to see. [facility] Work Phone: 12-05-2023 History and [...] (has no administration in time range) pancrelipase (Cte-Ccks-Jyom) (Creon) 12,000-38,000 -60,000 unit per capsule 2 [...] Awareness under anesthesia, Depression, Factor V Leiden ([facility]), Pancreatitis, Seizure ([facility]), and Stroke ([facility]). Surgical History She has a past [...] Tuesday, # 13 cap(s), 3 Refill(s), Pharmacy: [facility], 160, cm, [...] NAUSEA 04/28/23 04/27/24 Terry Kaiser MD pancrelipase, Kuw-Bjkd-Vmtd, (Creon) 12,000-38,000 -60,000 unit capsule Take 2 [...] (confirmed on admission) NOK: Lizz Dockery (mother) [phone] Andreea Gandhi MD Internal Medicine, PGY-1 Associated [...] Medicine to see. documented in this encounter [facility] Work Phone: 12-05-2023 Note Formatting of this n ote might be different from the original. SEE EXCELLENT SURGICAL DRESSING MAKER'S NOTE FOR FURTHER DETAILS FOR H&P History [...] ROS unless stated above. [place] [facility]: There were no vitals taken for this [...] status: Full code NOK: Lizz Dockery - [phone] Johan Burton MD [facility] Work Phone: 12-05-2023 Nurse Note Doctor cancel appt due to patient not prepped for procedure. All not ified doctor will be in to see patient prior to her leaving. [facility] Work Phone: 11-15-2023 Hospital course Narrative Discharge [...] 12,000-38,000 -60,000 unit capsule; Generic drug: pancrelipase (Wte-Coeq-Pbvz); Take 2 capsules by mouth 3 times [...] 8:00 AM INF 04 PARM OPCTR PAROPCINF [place] 01/04/2024 8:00 AM INF 03 PARM OPCTR PAROPCINF [place] 01/18/2024 8:30 AM INF 02 PARM OPCTR PAROPCINF [place] 02/01/2024 8:30 AM INF 01 PARM OPCTR PAROPCINF [place] 02/15/2024 8:30 AM INF 02 PARM OPCTR PAROPCINF [place] Chastity León MD documented in this encounter [facility] Work Phone: 11-15-2023 History of Present illness Narrative Gastroenterology Consult Service Progress Note Department of Gastroenterology & Hepatology [facility] November 15, 2023 Patient: Dorothea Rutledge Medical Record: [id number] Reason for Initial Consult: pancreatic pseudocyst Requesting [...] Shelli Paris 11/09/2023 3:51 PM Dictation workstation: [id number] GI procedures: 03/2016 Cscope Cecum: Normal. Ascending: [...] w/ AIP) who has been admitted to [facility] ED on 11/11/23 for abdominal pain. Recent [...] to identify any interposed vessels. Using the DeliveryCheetahOS stent delivery system, the cavity was punctured [...] [place] [phone]. Thank you. SIGNATURE: Nadia Weaver MD PATIENT [...] Daily nystatin, 1 Application, Topical, BID pancrelipase (Svg-Rneb-Hexp), 2 capsule, oral, TID with meals pantoprazole, [...] prior inpatient records available, labs, imaging, and national sales consultant notes. Personally discussed with nursing staff and transitional child care provider. Current work up, and treatment and discharge plan is discussed with the patient and counselling is provided. Repeat labs are ordered as needed. Chastity León MD 11/14/23 1515 Transitional [place] [employer] Notes: Assessment Note: Met with patient to [...] Department of Gastroenterology & Hepatology [facility] November 14, 2023 Patient: Dorothea Rutledge Medical Record: [id number] Reason for Initial Consult: pancreatic pseudocyst Requesting [...] Shelli Paris 11/09/2023 3:51 PM Dictation workstation: [id number] GI procedures: 03/2016 Cscope Cecum: Normal. Ascending: [...] w/ AIP) who has been admitted to [facility] ED on 11/11/23 for abdominal pain. Recent [...] to identify any interposed vessels. Using the DeliveryCheetahOS stent delivery system, the cavity was punctured [...] to contact me on DocHalo or page [phone] if there are any further questions between the weekday hours of 7 AM - 5 PM. If there is an urgent concern during the weekend, after-hours, or holidays; then [place] [phone]. Thank you. SIGNATURE: Nadia Weaver MD PATIENT [...] Note Department of Gastroenterology & Hepatology [facility] November 13, 2023 Patient: Dorothea Rutledge Medical Record: [id number] Reason for Initial Consult: pancreatic pseudocyst Requesting [...] Shelli Paris 11/09/2023 3:51 PM Dictation workstation: [id number] GI procedures: 03/2016 Cscope Cecum: Normal. Ascending: [...] Ketamine infusion) who has been admitted to [facility] ED on 11/11/23 for abdominal pain. Recent [...] to contact me on DocHalo or page [phone] if there are any further questions between the weekday hours of 7 AM - 5 PM. If there is an urgent concern during the weekend, after-hours, or holidays; then [place] [phone]. Thank you. SIGNATURE: Nadia Weaver MD PATIENT [...] Daily nystatin, 1 Application, Topical, BID pancrelipase (Tuh-Qxpi-Thsb), 2 capsule, oral, TID with meals pantoprazole, [...] Yellow, Dark-Yellow Appearance, Urine Clear Clear Specific [place], Urine 1.008 1.005 - 1.035 pH, Urine [...] prior inpatient records available, labs, imaging, and national sales consultant notes. Personally discussed with nursing staff and transitional child care provider. Current work up, and treatment and discharge [...] Daily nystatin, 1 Application, Topical, BID pancrelipase (Gve-Zkqh-Yioq), 2 capsule, oral, TID with meals pantoprazole, [...] Progress Note Department of Gastroenterology & Hepatology [facility] November 12, 2023 Patient: Dorothea Rutledge Medical Record: [id number] Reason for Initial Consult: pancreatic pseudocyst Requesting [...] Shelli Paris 11/09/2023 3:51 PM Dictation workstation: [id number] GI procedures: 03/2016 Cscope Cecum: Normal. Ascending: [...] Ketamine infusion) who has been admitted to [facility] ED on 11/11/23 for abdominal pain. Recent [...] to contact me on DocHalo or page [phone] if there are any further questions between the weekday hours of 7 AM - 5 PM. If there is an urgent concern during the weekend, after-hours, or holidays; [place] [phone]. Thank you. SIGNATURE: Nadia Weaver MD PATIENT [...] succinate XL, 25 mg, oral, Daily pancrelipase (Whd-Bqwm-Dwte), 2 capsule, oral, TID with meals pantoprazole, [...] Adelina Og DO documented in this encounter [facility] Work Phone: 11-14-2023 Plan of [...] address these barriers include follow med recommendations. [facility] 11-14-2023 Miscellaneous Notes Problem: Pain [...] barriers include . documented in this encounter [facility] Work Phone: 11-14-2023 Nurse Note 11/14/2023 Nursing Note: TO GI lab at 8am for endoscopy. Returned to division at 1400, Rating pain 10/10 from all the air that was placed. Diet placed for full liquids. C/o nausea with no emesis. Able to consume a variety of liquids over a few hours. Placed back on tele. Repeat K was 3.8. [facility] 11-14-2023 Nurse Note 11/14/2023 Nursing [...] was 3.8. Admission note. Patient admitted to [place] [facility] documented in this encounter [facility] Work Phone: 11-14-2023 Note Formatting of this n ote might be different from the original. Pt discharged back to floor in stable condition [facility] 11-14-2023 Note Formatting of this n ote might be different from the original. Report called to Cherry VILLANUEVA, LKAL 60 [facility] Work Phone: 11-14-2023 Plan of care note The patient's goals for the shift include completion of endoscopy. The clinical goals for the shift include pt will have rate pain <4 by the end of shift [facility] Work Phone: 11-13-2023 Plan of [...] patient will be without full during shift [facility] 11-13-2023 Plan of care note Problem: [...] address these barriers include BS monitoring. [facility] Work Phone: 11-12-2023 Plan of care [...] identify my specific goals Outcome: Progressing [facility] 11-11-2023 Nurse Note Admission note. Patient admitted to [place] [address] [facility] Work Phone: 11-11-2023 Plan of care note The patient's goals for the shift include The clinical goals for the shift include Over the shift, the patient did not make progress toward the following goals. Barriers to progression include . Recommendations to address these barriers include . [facility] Work Phone: 11-11-2023 Consult note Associated Order (s): IP CONSULT TO GASTROENTEROLOGY [facility] [place] INITIAL CONSULT NOTE Source of Information: The source of the history was patient Consult requested by: Service: Hospital Medicine Reason for Consult: Pancreatic Pseudocyst Admission Chief Complaint: Abdominal pain SUBJECTIVE HPI: Dorothea Rutledge is a 47 y.o. female with a past medical history of factor V Leiden on xarelto, seizures, anxiety, depression and recurrent pancreatitis who has been admitted to [facility] ED on 11/11/23 for abdominal pain. GI consulted for possible pancreatic cyst drainage. Briefly, patient has been having episodes of yearly pancreatitis since 2013, which have all been mild. However, on 01/2023, she had an episode of severe pancreatitis that was initially managed supportively and subsequently found to have necrotizing pancreatitis at [facility]. Patient was transferred from [facility] in March for worsening symptoms of [...] V Leiden (CMS/HCC) Pancreatitis Seizure (CMS/HCC) Stroke ([facility]/HCC) Past Surgical History: Procedure Laterality Date HYSTERECTOMY [...] succinate XL, 25 mg, oral, Daily pancrelipase (Ovk-Lawx-Eklu), 2 capsule, oral, TID with meals pantoprazole, [...] OR ondansetron, polyethylene glycol EXAM Vital signs: @UQFGQP93@ Physical Exam Alert and oriented x 3 [...] Nancy Garrido. The study was interpreted at [facility] in [facility]. MACRO: none Signed by: Marie Fisher 11/10/2023 10:20 PM Dictation workstation: [id number] GI Procedures ASSESSMENT / PLAN Assessment and Recommendations: Dorothea Rutledge is a 47 y.o. female with a past medical history of factor V Leiden on xarelto, seizures, anxiety, depression and chronic abdominal pain 2/2 recurrent acute on chronic pancreatitis (on Creon and q2 weeks Ketamine infusion) who has been admitted to [facility] ED on 11/11/23 for abdominal pain. Recent [...] decision making as documented in the note. [facility] Work Phone: 11-11-2023 Consult note Associated Order (s): IP CONSULT TO GASTROENTEROLOGY [facility] [place] INITIAL CONSULT NOTE Source of Information: The source of the history was patient Consult requested by: Service: Hospital Medicine Reason for Consult: Pancreatic Pseudocyst Admission Chief Complaint: Abdominal pain SUBJECTIVE HPI: Dorothea Rutledge is a 47 y.o. female with a past medical history of factor V Leiden on xarelto, seizures, anxiety, depression and recurrent pancreatitis who has been admitted to [facility] ED on 11/11/23 for abdominal pain. GI consulted for possible pancreatic cyst drainage. Briefly, patient has been having episodes of yearly pancreatitis since 2013, which have all been mild. However, on 01/2023, she had an episode of severe pancreatitis that was initially managed supportively and subsequently found to have necrotizing pancreatitis at [facility]. Patient was transferred from [facility] in March for worsening symptoms of [...] V Leiden (CMS/HCC) Pancreatitis Seizure (CMS/HCC) Stroke ([facility]) Past Surgical History: Procedure Laterality Date [...] succinate XL, 25 mg, oral, Daily pancrelipase (Qzg-Aoge-Kent), 2 capsule, oral, TID with meals pantoprazole, [...] OR ondansetron, polyethylene glycol EXAM Vital signs: @AHSXON26@ Physical Exam Alert and oriented x 3 [...] Nancy Garrido. The study was interpreted at [facility] in [facility]. MACRO: none Signed by: Marie Fisher 11/10/2023 10:20 PM Dictation workstation: [id number] GI Procedures ASSESSMENT / PLAN Assessment and Recommendations: Dorothea Rutledge is a 47 y.o. female with a past medical history of factor V Leiden on xarelto, seizures, anxiety, depression and chronic abdominal pain 2/2 recurrent acute on chronic pancreatitis (on Creon and q2 weeks Ketamine infusion) who has been admitted to [facility] ED on 11/11/23 for abdominal pain. Recent [...] in the note. documented in this encounter [facility] Work Phone: 11-10-2023 History and [...] History: Diagnosis Date Depression Factor V Leiden ([facility]/HCC) Pancreatitis Seizure ([facility]/HCC) Stroke (CMS/HCC) Surgical History Past Surgical History: Procedure Laterality Date HYSTERECTOMY IR CVC PORT PLACEMENT 08/26/2023 IR CVC PORT PLACEMENT 08/26/2023 [facility] ANGIO MR HEAD ANGIO WO IV CONTRAST 10/16/2017 MR HEAD ANGIO WO IV CONTRAST [facility] MR NECK ANGIO WO IV CONTRAST 10/16/2017 MR NECK ANGIO WO IV CONTRAST [facility] US GUIDED PERCUTANEOUS PLACEMENT 06/08/2019 US GUIDED PERCUTANEOUS PLACEMENT [facility] Social History She reports [...] abdomen pelvis 07/05/2023, MRCP 11/09/2023 ACCESSION NUMBER(S): [id number] ORDERING CLINICIAN: KHURRAM STUART TECHNIQUE: CT of [...] Nancy Garrido. The study was interpreted at [facility] in [facility]. MACRO: none Signed by: Marie Fisher 11/10/2023 10:20 PM Dictation workstation: [id number] ED Medication Administration from 11/10/2023 1309 to [...] -Continue Valacyclovir 500mg daily Nancy Benedict APRN-HAMLET [facility] Work Phone: 11-10-2023 History and [...] History: Diagnosis Date Depression Factor V Leiden ([facility]) Pancreatitis Seizure ([facility]) Stroke ([facility]) Surgical History Past Surgical History: Procedure Laterality Date HYSTERECTOMY IR CVC PORT PLACEMENT 08/26/2023 IR CVC PORT PLACEMENT 08/26/2023 [facility] ANGIO MR HEAD ANGIO WO IV CONTRAST 10/16/2017 MR HEAD ANGIO WO IV CONTRAST [facility] MR NECK ANGIO WO IV CONTRAST 10/16/2017 MR NECK ANGIO WO IV CONTRAST [facility] US GUIDED PERCUTANEOUS PLACEMENT 06/08/2019 US GUIDED PERCUTANEOUS PLACEMENT [facility] Social History She reports [...] abdomen pelvis 07/05/2023, MRCP 11/09/2023 ACCESSION NUMBER(S): [id number] ORDERING CLINICIAN: KHURRAM STUART TECHNIQUE: CT of [...] Nancy Garrido. The study was interpreted at [facility] in [facility]. MACRO: none Signed by: Marie Fisher 11/10/2023 10:20 PM Dictation workstation: [id number] ED Medication Administration from 11/10/2023 1309 to [...] Nancy Benedict APRN-HAMLET documented in this encounter [facility] Work Phone: 11-10-2023 Emergency department Note Pts GI sent her in because she has cysts on her pancreas. Pt states the pain started around 0600 documented in this encounter [facility] Work Phone: 11-10-2023 Emergency department Triage note Pts GI sent her in because she has cysts on her pancreas. Pt states the pain started around 0600 [facility] Work Phone: 10-27-2023 History of [...] as stated. [facility] [place] MACRO: None Electronically signed by: CARISSA [...] and prescription drugs. documented in this encounter [facility] Work Phone: 10-18-2023 Miscellaneous Notes Interventional Radiology Brief Postprocedure Note Attending: Flori Hardwood Floor Finisher: None Diagnosis: requires durable IV access Description [...] been discussed with the patient and/or their career representative. All questions answered and they agree to proceed. Grzegorz Brady DO, PGY-2 Diagnostic Radiology [facility] documented in this encounter [facility] Work Phone: 10-18-2023 Note Formatting of this n ote is different from the original. Interventional Radiology Brief Postprocedure Note Attending: Flori Hardwood Floor Finisher: None Diagnosis: requires durable IV access Description [...] or complication and is in stable condition. [facility] Work Phone: 10-18-2023 Note Formatting [...] been discussed with the patient and/or their career representative. All questions answered and they agree to proceed. Grzegorz Brady DO, PGY-2 Diagnostic Radiology [facility] Work Phone: 10-18-2023 Note Formatting of this n ote is different from the original. Interventional Radiology Brief Postprocedure Note Attending: Flori Hardwood Floor Finisher: None Diagnosis: requires durable IV access Description [...] or complication and is in stable condition. [facility] Work Phone: 10-18-2023 Note Formatting of [...] been discussed with the patient and/or their career representative. All questions answered and they agree to proceed. Grzegorz Brady DO, PGY-2 Diagnostic Radiology [facility] Work Phone: 10-17-2023 Hospital Discharge [...] face Sudden trouble with speech or vision [phone] [employer]. [address] [place] [address]. All rights reserved. This information is not [...] foods again, start with small amounts of zgwa-jf-mhhcvr, low-fat foods. These include apple sauce, toast, [...] increase stomach acid. Don't use aspirin or vxnm-pdx-yejsgxq pain and fever medicines, if possible. This includes nonsteroidal anti-inflammatory drugs (NSAIDs). Lose excess weight. Finish eating at least 2 hours before you go to bed or lie down. Raise the head of your bed. [phone] [employer]. [address] [place] [address]. All rights reserved. This information is not intended as a substitute for professional medical care. Always follow your healthcare professional's instructions. Follow Up Care 10/17/2023 15:46:50 With:CJ RIVERA Address: [address] [place] [address]- [phone] When:2-4 days [facility] 10-17-2023 Note Discharge Instructions Thank you for allowing [facility] to assist you with your healthcare needs. [...] When Within 2-4 days Where: [address] [address]- [phone] Allergies penicillin (Rash) Neurontin (Vomiting) sulfa drug [...] face Sudden trouble with speech or vision [phone] [employer]. [address] [place] [address]. All rights reserved. This information is not [...] foods again, start with small amounts of abcp-lr-xkswby, low-fat foods. These include apple sauce, toast, [...] increase stomach acid. Don't use aspirin or xgsq-puo-njzattn pain and fever medicines, if possible. This includes nonsteroidal anti-inflammatory drugs (NSAIDs). Lose excess weight. Finish eating at least 2 hours before you go to bed or lie down. Raise the head of your bed. 0610-4550 [employer]. [address] [place] [address]. All rights reserved. This information is not intended as a substitute for professional medical care. Always follow your healthcare professional's instructions. Additional Information VACCINATE! IT SAVES LIVES! Members of the community who have not yet received the COVID-19 vaccine and would like to receive it can visit one of [facility] vaccine clinics. There are many vaccine clinic locations within the [facility]. For locations and available times, please visit [email or web address] . It is important to note that some COVID mobile vaccine clinics are held outdoors and may be canceled in rainy or stormy conditions. To learn more about pediatric vaccinations (ages 5-11), we invite you to visit the [facility] webpage. [email or web address]/pages [email or web address]-[email or web address] sked-[email or web address].html To learn more about the COVID-19 vaccine, we invite you to visit the CDC website for a list of frequently asked questions. https://www.cdc.gov/coronavirus/2019 -ncov/vaccines/faq.html [facility].Chart Patient Portal Access Instructions: Stay connected with your healthcare team and access your personal medical information anytime with the [facility] bes[facility].Chart Patient Portal. If you would like a full copy of your medical records please contact the [facility] Medical Records Department Tuesday through Tuesday between 8a.m. and 4:30p.m. Please follow the directions below to access the portal: 1.Access the email account you provided upon registration to the [facility].2.Look for an invitation email from [facility].3.Open the email and access the invitation link: Accept Invitation to [facility]4.Fill in the required azul to create your account. Sign into [email or web address] with your username and password that you [...] you will allow to register on the [employer] Patient Portal for access to your information. You can also access the [employer] Patient Portal on the [employer]. Simply click on Health Records under Health Data and then click on the [employer] logo. HOW TO SAFELY DISPOSE OF PRESCRIPTION [...] Call your local pharmacy or go to http://Alkermes/7F3Dr3f to find one close to you.3.Make use of household items: Use cat litter or old coffee grounds to dispose medications if other options are not available. Mix your drugs with these household products, seal them in an airtight container and throw it into the garbage. Call [facility]: [phone] to be sure your drugs can be [...] aware that I should contact my doctor. Patient/Plant Operations Coordinator Signature: ___ Date/Time: Relationship to Patient: _ Witness Name/Signature: Date/Time: [facility] 08-26-2023 Hospital Discharge instructions Mesfin Gonzalez RN [...] for your protection and safety. Refer to [facility] patient information sheet for further discharge instructions. For questions related to your procedure: Please call [phone] between the hours of 7:00am-5:00pm Tuesday through Tuesday. Please call [phone] after 5:00pm and on weekends and holidays. In the event of an emergency call 911 or go to your nearest emergency room. documented in this encounter [facility] Work Phone: 08-19-2023 Nurse Note Doctor cancel appt due to patient not prepped for procedure. All not ified doctor will be in to see patient prior to her leaving. documented in this encounter [facility] Work Phone: 08-11-2023 Note . [...] Locations *1: This test was performed at: [facility], [address] [place] [address], [id number] , [facility] hospital ([place]) 08-03-2023 History of Present illness Narrative Gastroenterology Clinic Consult Note Reason For Consult pancreatitis History Of Present Illness Dorothea Rutledge is a 47 y.o. female with a past medical history of factor V Leiden on xarelto, seizures, anxiety and depression and recurrent pancreatitis here for follow-up after a recent hospitalization. Patient was transferred from [facility] in March for worsening symptoms of [...] Depression, Factor V Leiden (CMS/HCC), Pancreatitis, Seizure ([facility]), and Stroke ([facility]). Surgical History She has a past [...] 3 times a day., Disp: , Rfl: dclpdnusav-exdqqarhqiuqq-oljc 50-325-40 mg tablet, Dose = 1 tab(s), Oral, q4h, PRN as needed, in absence of pcp, # 180 tab(s), 0 Refill(s), Pharmacy: [id number], 160, cm, 11/12/22 21:20:00 EST, Height, kg, 11/12/22 21:20:00 EST, Dosing Weight, Disp: , Rfl: cholecalciferol (Vitamin D-3) 1,250 mcg (50,000 unit) capsule, Dose : 1,250 mcg = 1 cap(s), Oral, Tuesday, # 13 cap(s), 3 Refill(s), Pharmacy: [facility], 160, cm, [...] mouth once daily., Disp: , Rfl: HYDROcodone-acetaminophen ([place]) 5-325 mg tablet, Take 1 tablet by [...] hours if needed., Disp: , Rfl: pancrelipase, Web-Iytz-Ytsr, (Creon) 12,000-38,000 -60,000 unit capsule, TAKE 3 CAPSULES BY MOUTH THREE TIMES A DAY WITH MEALS, Disp: 270 capsule, Rfl: 0 pancrelipase, Xue-Ztoi-Aihe, (Creon) 12,000-38,000 -60,000 unit capsule, TAKE 3 CAPSULES BY MOUTH THREE TIMES A DAY WITH MEALS, Disp: 270 capsule, Rfl: 0 pancrelipase, Tka-Oqbi-Hgwn, (Creon) 12,000-38,000 -60,000 unit capsule, TAKE 3 [...] 06/15/2023. US renal bilateral 05/14/2023. ACCESSION NUMBER(S): [id number] ORDERING CLINICIAN: SARAH HO TECHNIQUE: CT of [...] 5. I will reach out to her face painter in regards to overall plan for her. I will contact the patient at that point in regards to other interventions. 6. Office follow-up in 3 months. I spent 60 minutes in the professional and overall care of this patient. Colton Hicks MD documented in this encounter [facility] Work Phone: 08-03-2023 Instructions Colton [...] records to review. documented in this encounter [facility] Work Phone: 06-29-2023 Miscellaneous Notes [...] Please E-Scribe Caller Contact Number: Pharmacy Name: [email or web address] Pharmacy Number: [phone] Generic/ brand: Generic 30 or 90 day supply requested: 30 Last appointment: 11/20/21 Next Appointment: 07/08/[address] Aldrich documented in this encounter [facility] 06-17-2023 Note Clinical Event: Clinical Event [...] 17-Jun-2023 18:17 by Sapna Hernandez ( (Fellow)) [facility] 06-17-2023 Note Clinical Event: Clinical Event Note: [...] Updated: 17-Jun-2023 11:51 by Adelina Thompson () [facility] 06-16-2023 Hospital course Narrative Send Summary: Discharge Summary Providers: Provider Role Provider Name Referring Correct Info, Needed Attending Chastity León Primary Cj Rivera Consulting Gastroenterology Consult Team Note Recipients: Correct Info, Needed, Cj Ratliff, [facility] - [phone] [] Discharge: Summary: Admission Date: .14-Jun-2023 14:23:00 [...] she was evaluated for similar complaints at [facility] on 05/07/2023, where she reported an allergy to Morphine, as well as a visit to [facility] on 04/29/2023. She reported being recently admitted at 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 Most recently, she visited [facility] ([place] on 05/19, 05/23, and 06/03, with her [...] at 7 different pharmacies. On exam in [facility], patient endorsed only abdominal [...] Gastroenterology clinic Scheduled Date/Time: 06-Jul-2023 09:40 Location: [facility] Follow-Up Appointment 02: Physician/Dept/Service: Pain management clinic Call to Schedule in: 2 weeks Scheduled Date/Time: 05-Jul-2023 13:30 Location: [facility]. Discharge Medications: Home Medication cloNIDine [...] by Chastity León) documented in this encounter [facility] Work Phone: 06-16-2023 Note Send Summary: Discharge Summary Providers: Provider RoleProvider Name ReferringCorrect Info, Needed Chastity Benitez PrimaryLorCj agosto ConsultingGastroenterology Consult Team Note Recipients: Correct Info, NeededMD Nicole Lindsey C, MANAGER PROFESSIONAL DEVELOPMENT-SPECIAL NEEDS TEACHER - [phone] [] Discharge: Summary: Admission Date: .14-Jun-2023 14:23:00 Discharge Date: 16-Jun-2023 Attending Physician at Discharge: Chastity León Admission Reason: Abdominal pain Final Discharge Diagnoses: Chronic Pancreatitis Chronic abdominal pain Procedures: none Condition at Discharge: Satisfactory Disposition at Discharge: .Home Vital Signs: T PRBPMAPSpO2 [id number]/[id number]% Date/Time06/16 16: 16: 16: 16: 16: 16:18 Range(36C - 36.5C ) (71 - 92 ) (16 - 18 ) (113 - 141 )/ (68 - 89 ) (84 - 103 ) (93% - 96% ) Date: Weight/Scale Type:Height: 15-Jun-2023 04:2196 kg / oee468.9 cm Physical Exam: on the day of [...] she was evaluated for similar complaints at [facility] on 05/07/2023, where she reported an allergy to Morphine, as well as a visit to [facility] on 04/29/2023. She reported being recently admitted at 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 Most recently, she visited [facility] on 05/19, 05/23, and 06/03, with her [...] at 7 different pharmacies. On exam in [facility] RM 342, patient endorsed only abdominal [...] weight bearing. Nutrition/Diet: (more content not included)... [facility] 06-15-2023 Note Clinical Note - Vin ngo v2: Education: Document TopicMedication Education MedicationMeds to Beds: Patient declines Meds to Beds service at discharge. Sources used to confirm home medication list: Patient interview - fair historian of medications/ Pharmacy - [facility]/ Chart review/ OARRS - lacosamide 100mg #270/90 filled 05/10 Medication reconciliation complete Please reach out via Vaprema for questions, or if no response call [employer] or [employer] Christina MilnerD, Transitions of Care Pharmacist, [facility] Is This Intervention [...] 15-Jun-2023 13:26 by Ann Marie Jimenez (PharmD) [facility] 06-15-2023 Note Assessment Subjectiv e/Objective: Note Type: Education Note Authored by: Registered Dietitian Asphalt Paver Operator Pager Number: [phone] Nutrition Note: Consult received via nursing admit [...] order consisted of OJ/cantaloupe/breakfast sandwich and vanilla estonian yogurt. Lunch- cantaloup (more content not included)... [facility] 06-15-2023 History and physical note History of [...] she was evaluated for similar complaints at [facility] on 05/07/2023, where she reported an allergy to Morphine, as well as a visit to [facility] on 04/29/2023. She reports being recently admitted at 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 Most recently, she visited [facility]) on 05/19, 05/23, and 06/03, with [...] prescriptions listed in [facility]. On exam in [facility], patient endorses only abdominal pain and bilateral [...] Nurse, Charge nurse Electronic Signatures: Nancy Benedict (MANAGER PROFESSIONAL DEVELOPMENT-SPECIAL NEEDS TEACHER) (Signed 15-Jun-2023 05:52) Authored: History of Present Illness, Comorbidities, Family History, Social History, Allergies, Medications Prior to Admission, Review of Systems, Objective, Assessment and Plan, Note Completion Last Updated: 15-Jun-2023 05:52 by Nancy Benedict (MANAGER PROFESSIONAL DEVELOPMENT-SPECIAL NEEDS TEACHER) References: 1. Data Referenced From Patient Profile - Adult v2 15-Jun-2023 04:21 [facility] Work Phone: 06-15-2023 History and [...] she was evaluated for similar complaints at [facility] on 05/07/2023, where she reported an allergy to Morphine, as well as a visit to [facility] on 04/29/2023. She reports being recently admitted at 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 Most recently, she visited [facility] on 05/19, 05/23, and 06/03, with her [...] prescriptions listed in [facility]. On exam in [facility], patient endorses only abdominal pain and bilateral [...] Nurse, Charge nurse Electronic Signatures: Nancy Benedict (MANAGER PROFESSIONAL DEVELOPMENT-[facility]) (Signed 15-Jun-2023 05:52) Authored: History of Present Illness, Comorbidities, Family History, Social History, Allergies, Medications Prior to Admission, Review of Systems, Objective, Assessment and Plan, Note Completion Last Updated: 15-Jun-2023 05:52 by Nancy Benedict (MANAGER PROFESSIONAL DEVELOPMENT-[facility]) References: 1. Data Referenced From Patient Profile - Adult v2 15-Jun-2023 04:21 documented in this encounter [facility] Work Phone: 06-15-2023 Note History [...] she was evaluated for similar complaints at [facility] on 05/07/2023, where she reported an allergy to Morphine, as well as a visit to [facility] on 04/29/2023. She reports being recently admitted at 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 Most recently, she visited [facility] on 05/19, 05/23, and 06/03, with her being informed the ED was not appropriate for pain management according to the ED note available in [facility]. She was also evaluated at pain [...] prescriptions listed in [facility]. On exam in [facility], patient endorses only abdominal pain and bilateral [...] mg oral tab (more content not included)... [facility] 06-03-2023 Hospital Discharge instructions Patient Education 06/03/2023 [...] blood in stool Seizure Loss of consciousness 2711-5606 [employer]. [address] [place] [address], [place] [address]. All rights reserved. This information is not intended as a substitute for professional medical care. Always follow your healthcare professional's instructions. Follow Up Care 06/03/2023 14:52:20 With:[facility] Address: When:2-4 days With:CJ RIVERA APRN-[facility] Address: [address] [place] [address] [phone] When:2-4 days With:Go to emergency room if symptoms worsen Address:Unknown When:2-4 days [facility] 06-03-2023 Note Discharge Instructions Thank you for allowing [facility] to assist you with your healthcare needs. The following is important discharge information regarding your hospital visit. Diagnosis from Today's Visit Abdominal pain Necrotizing pancreatitis Pancreatitis What to Do Next Instructions from Your Care Team No qualifying data available. Post Acute Orders No qualifying data available. You Need to Schedule the Following Appointments Follow Up with [facility] When Within 2-4 days Where: Follow Up with CJ RIVERA When Within 2-4 days Where: [address] [place], [place] [id number] [phone] Follow Up with Go to emergency room [...] may report side effects to FDA at 9-807-CQX-0897. What other drugs will affect acetaminophen and [...] affect acetaminophen and oxycodone, including prescription and mmct-tfh-ezkohtk medicines, vitamins, and herbal products. Not all [...] to ensure that the information provided by [employer]. ('[employer]') is accurate, up-to-date, and complete, but no guarantee is made to that effect. Drug information contained herein may be time sensitive. [employer] information has been compiled for use by healthcare practitioners and consumers in the [place] and therefore [employer] does not warrant that uses outside of the [place] are appropriate, unless specifically indicated otherwise. [employer] drug information does not endorse drugs, diagnose patients or recommend therapy. [employer] drug information is an informational resource designed [...] effective or appropriate for any given patient. [employer] does not assume any responsibility for any aspect of healthcare administered with the aid of information [employer] provides. The information contained herein is not intended to cover all possible uses, directions, precautions, warnings, drug interactions, allergic reactions, or adverse effects. If you have questions about the drugs you are taking, check with your doctor, nurse or pharmacist. Copyright 3540-0277 [employer]. Version: 22.. Revision Date: 04/21/2023. ondansetron (oral) [...] may report side effects to FDA at 2-156-ILH-1750. What other drugs will affect ondansetron? Ondansetron [...] interact with ondansetron. This includes prescription and zsxl-oxq-jgxjhkb medicines, vitamins, and herbal products. Give a [...] to ensure that the information provided by [employer]. ('[employer]') is accurate, up-to-date, and complete, but no guarantee is made to that effect. Drug information contained herein may be time sensitive. [employer] information has been compiled for use by healthcare practitioners and consumers in the [place] and therefore [employer] does not warrant that uses outside of the [place] are appropriate, unless specifically indicated otherwise. [employer] drug information does not endorse drugs, diagnose patients or recommend therapy. [employer] drug information is an informational resource designed [...] effective or appropriate for any given patient. [facility] does not assume any responsibility for any aspect of healthcare administered with the aid of information [facility] provides. The information contained herein is not intended to cover all possible uses, directions, precautions, warnings, drug interactions, allergic reactions, or adverse effects. If you have questions about the drugs you are taking, check with your doctor, nurse or pharmacist. Copyright 5187-4256 [employer]. Version: 16.. Revision Date: 04/21/2023. Education Materials [...] blood in stool Seizure Loss of consciousness 2188-9341 [employer]. [address] [place] [address]. All rights reserved. This information is not intended as a substitute for professional medical care. Always follow your healthcare professional's instructions. Additional Information VACCINATE! IT SAVES LIVES! Members of the community who have not yet received the COVID-19 vaccine and would like to receive it can visit one of [facility] vaccine clinics. There are many vaccine clinic locations within the [facility]. For locations and available times, please visit [email or web address].[email or web address] . It is important to note that some COVID mobile vaccine clinics are held outdoors and may be canceled in rainy or stormy conditions. To learn more about pediatric vaccinations (ages 5-11), we invite you to visit the [facility] webpage. https://www.[facility].org/pages /0793-Aileb-Qudewklcava-Frequently-A sked-Questions.html To learn more about the COVID-19 vaccine, we invite you to visit the CDC website for a list of frequently asked questions. https://www.cdc.gov/coronavirus/2019 -ncov/vaccines/faq.html [facility] Patient Portal Access Instructions: Stay connected with your healthcare team and access your personal medical information anytime with the [facility] Patient Portal. If you would like a full copy of your medical records please contact the [facility] Medical Records Department Tuesday through Tuesday between 8a.m. and 4:30p.m. Please follow the directions below to access the portal: 1.Access the email account you provided upon registration to the [facility].2.Look for an invitation email from [facility].3.Open the email and access the invitation link: Accept Invitation to [facility]4.Fill in the required azul to create your [...] you will allow to register on the [facility] Patient Portal for access to your information. You can also access the [facility] Patient Portal on the Pet[employer]. Simply click on Health Records under Health [...] Call your local pharmacy or go to [email or web address] [email or web address] to find one close to you.3.Make use of household items: Use cat litter or old coffee grounds to dispose medications if other options are not available. Mix your drugs with these household products, seal them in an airtight container and throw it into the garbage. Call [facility]: [phone] to be sure your drugs can be [...] aware that I should contact my doctor. Patient/Plant Operations Coordinator Signature: ___ Date/Time: Relationship to Patient: _ Witness Name/Signature: Date/Time: [facility] 05-25-2023 History of Present illness Narrative OPIOIDOpioid [...] findingsas stated. This study was interpreted at [facility], [place], [place].MACRO:NoneElectronically signed by: CARISSA BUI 05/12/23 23:41Tyzyvjskqx18 years old with morbid obesity BMI 39 [...] free to contact me to clarify. MP-Pain Management-[facility] Work Phone: 05-23-2023 Hospital Discharge instructions [...] foods again, start with small amounts of qzte-yr-agqhis, low-fat foods. These include apple sauce, toast, [...] increase stomach acid. Don't use aspirin or gruj-fje-qklyhaq pain and fever medicines, if possible. This includes nonsteroidal anti-inflammatory drugs (NSAIDs). Lose excess weight. Finish eating at least 2 hours before you go to bed or lie down. Raise the head of your bed. 8904-9804 [employer] [facility]. [address] [place] [address]. All rights reserved. This information is not intended as a substitute for professional medical care. Always follow your healthcare professional's instructions. Follow Up Care 05/23/2023 02:32:38 With:CJ RIVERA Address: [address] [place] [address] [phone] When:2-4 days [facility] 05-23-2023 Note Discharge Instructions Thank you for allowing [facility] to assist you with your healthcare needs. The following is important discharge information regarding your hospital visit. Diagnosis from Today's Visit Abdominal pain What to Do Next Instructions from Your Care Team No qualifying data available. Post Acute Orders No qualifying data available. You Need to Schedule the Following Appointments Follow Up with CJ RIVERA When Within 2-4 days Where: [address] [address]- [phone] Allergies penicillin (Rash) Neurontin (Vomiting) sulfa drug [...] foods again, start with small amounts of wios-th-qznbte, low-fat foods. These include apple sauce, toast, [...] increase stomach acid. Don't use aspirin or ncve-teu-siktrur pain and fever medicines, if possible. This includes nonsteroidal anti-inflammatory drugs (NSAIDs). Lose excess weight. Finish eating at least 2 hours before you go to bed or lie down. Raise the head of your bed. 3339-5057 [facility]. [address] [place] [address], [place] [address]. All rights reserved. This information is not intended as a substitute for professional medical care. Always follow your healthcare professional's instructions. Additional Information VACCINATE! IT SAVES LIVES! Members of the community who have not yet received the COVID-19 vaccine and would like to receive it can visit one of [facility] vaccine clinics. There are many vaccine clinic locations within the [facility]. For locations and available times, please visit www.[email or web address].[place].gov/ . It is important to note that some COVID mobile vaccine clinics are held outdoors and may be canceled in rainy or stormy conditions. To learn more about pediatric vaccinations (ages 5-11), we invite you to visit the [facility] webpage. https://www.[facility].org/pages /3975-Ndqxe-Stdgbkuzcys-Frequently-A sked-Questions.html To learn more about the COVID-19 vaccine, we invite you to visit the CDC website for a list of frequently asked questions. https://www.cdc.gov/coronavirus/2019 -ncov/vaccines/faq.html [facility] Patient Portal Access Instructions: Stay connected with your healthcare team and access your personal medical information anytime with the [facility] Patient Portal. If you would like a full copy of your medical records please contact the [facility] Medical Records Department Tuesday through Tuesday between 8a.m. and 4:30p.m. Please follow the directions below to access the portal: 1.Access the email account you provided upon registration to the hospital.2.Look for an invitation email from [facility].3.Open the email and access the invitation link: Accept Invitation to [facility]io[facility]4.Fill in the required azul to create your account. Sign into [email or web address] with your username and password that you [...] you will allow to register on the [employer] Patient Portal for access to your information. You can also access the [employer] Patient Portal on the Survios leslie. Simply click on Health Records under Health Data and then click on the [employer] logo. HOW TO SAFELY DISPOSE OF PRESCRIPTION [...] Call your local pharmacy or go to http://bit.Easy Vino/4U9Fb2o to find one close to you.3.Make use of household items: Use cat litter or old coffee grounds to dispose medications if other options are not available. Mix your drugs with these household products, seal them in an airtight container and throw it into the garbage. Call [facility]: [phone] to be sure your drugs can be [...] aware that I should contact my doctor. Patient/Plant Operations Coordinator Signature: ___ Date/Time: Relationship to Patient: _ Witness Name/Signature: Date/Time: [facility] Seanoz Chawla 05-23-2023 Note Discharge Instructions [...] 2-4 days Where: [address] [facility] [place] [address]- [phone] Allergies penicillin (Rash) Neurontin (Vomiting) sulfa drug [...] foods again, start with small amounts of ckqz-qm-vzuxtq, low-fat foods. These include apple sauce, toast, [...] increase stomach acid. Don't use aspirin or hqbb-xtn-qznpyjw pain and fever medicines, if possible. This includes nonsteroidal anti-inflammatory drugs (NSAIDs). Lose excess weight. Finish eating at least 2 hours before you go to bed or lie down. Raise the head of your bed. 7312-5170 [employer] [facility]. [address] [place] [address]. All rights reserved. This information is not intended as a substitute for professional medical care. Always follow your healthcare professional's instructions. Additional Information VACCINATE! IT SAVES LIVES! Members of the community who have not yet received the COVID-19 vaccine and would like to receive it can visit one of [facility] vaccine clinics. There are many vaccine clinic locations within the [facility]. For locations and available times, please visit [email or web address].gov/ . It is important to note that some COVID mobile vaccine clinics are held outdoors and may be canceled in rainy or stormy conditions. To learn more about pediatric vaccinations (ages 5-11), we invite you to visit the [facility] webpage. https://www.[facility].org/pages /8958-Fygow-Zkfhfifaoek-Frequently-A sked-Questions.html To learn more about the COVID-19 vaccine, we invite you to visit the CDC website for a list of frequently asked questions. https://www.cdc.gov/coronavirus/2019 -ncov/vaccines/faq.html [facility] Patient Portal Access Instructions: Stay connected with your healthcare team and access your personal medical information anytime with the [facility] Patient Portal. If you would like a full copy of your medical records please contact the [facility] Medical Records Department Tuesday through Tuesday between 8a.m. and 4:30p.m. Please follow the directions below to access the portal: 1.Access the email account you provided upon registration to the [facility].2.Look for an invitation email from [facility].3.Open the email and access the invitation link: Accept Invitation to [facility]4.Fill in the required azul to create your account. Sign into [email or web address] with your username and password that you [...] you will allow to register on the [facility] Patient Portal for access to your information. You can also access the [facility] Patient Portal on the Survios leslie. Simply click on Health Records under Health Data and then click on the [employer] logo. HOW TO SAFELY DISPOSE OF PRESCRIPTION [...] Call your local pharmacy or go to http://[email or web address] Vino/5J3Ha4b to find one close to you.3.Make use of household items: Use cat litter or old coffee grounds to dispose medications if other options are not available. Mix your drugs with these household products, seal them in an airtight container and throw it into the garbage. Call [facility]: [phone] to be sure your drugs can be [...] aware that I should contact my doctor. Patient/Plant Operations Coordinator Signature: ___ Date/Time: Relationship to Patient: _ Witness Name/Signature: Date/Time: [facility] 05-21-2023 Note . MICRO - Microbiology PROCEDURE: [...] Locations *1: This test was performed at: [facility], [address] [place] [address], [id number] , [place] hospital ([place] 05-19-2023 Hospital Discharge instructions Patient Education 05/19/2023 [...] If needed, more treatment may be started. 9280-3502 [employer]. [address] [place] [address], [place] [id number]. All rights reserved. This information is not [...] blood in stool Seizure Loss of consciousness 2383-1034 [employer]. [address] [place] [address]. All rights reserved. This information is not intended as a substitute for professional medical care. Always follow your healthcare professional's instructions. Follow Up Care 05/19/2023 14:47:22 With:[facility] Address: When:2-4 days With:CJ RIVERA APRN-SPECIAL NEEDS TEACHER Address: [address] [facility] [place] [address] [phone] When:2-4 days With:Go to emergency room if symptoms worsen Address:Unknown When:2-4 days [facility] 05-19-2023 Note Discharge Instructions Thank you for allowing [facility] to assist you with your healthcare needs. [...] Schedule the Following Appointments Follow Up with [facility] When Within 2-4 days Where: Follow Up with CJ RIVERA When Within 2-4 days Where: [address] [facility] [place] [address]- [phone] Follow Up with Go to emergency room [...] When Why Instructions Last Dose New acetaminophen-hydrocodone ([place] 325- 5 mg oral tablet) 1 tab(s) [...] may report side effects to FDA at 8-596-OCN-6658. What other drugs will affect ondansetron? Ondansetron [...] interact with ondansetron. This includes prescription and paee-sht-dlaxswu medicines, vitamins, and herbal products. Give a [...] to ensure that the information provided by [employer]. ('[employer]') is accurate, up-to-date, and complete, but no guarantee is made to that effect. Drug information contained herein may be time sensitive. [employer] information has been compiled for use by healthcare practitioners and consumers in the [place] and therefore [employer] does not warrant that uses outside of the [place] are appropriate, unless specifically indicated otherwise. [employer] drug information does not endorse drugs, diagnose patients or recommend therapy. [employer] drug information is an informational resource designed [...] effective or appropriate for any given patient. [employer] does not assume any responsibility for any aspect of healthcare administered with the aid of information [facility] provides. The information contained herein is not intended to cover all possible uses, directions, precautions, warnings, drug interactions, allergic reactions, or adverse effects. If you have questions about the drugs you are taking, check with your doctor, nurse or pharmacist. Copyright 4084-7239 [facility]. Version: 16.01. Revision Date: 04/21/2023. cephalexin (sef [...] may report side effects to FDA at 2-109-GYA-4106. What other drugs will affect cephalexin? Tell your doctor about all your other medicines, especially: metformin; or probenecid. This list is not complete. Other drugs may affect cephalexin, including prescription and byjz-scx-mketbqe medicines, vitamins, and herbal products. Not all [...] to ensure that the information provided by [employer]. ('[employer]') is accurate, up-to-date, and complete, but no guarantee is made to that effect. Drug information contained herein may be time sensitive. [employer] information has been compiled for use by healthcare practitioners and consumers in the [place] and therefore [employer] does not warrant that uses outside of the [place] are appropriate, unless specifically indicated otherwise. [employer] drug information does not endorse drugs, diagnose patients or recommend therapy. [employer] drug information is an informational resource designed [...] effective or appropriate for any given patient. [employer] does not assume any responsibility for any aspect of healthcare administered with the aid of information [employer] provides. The information contained herein is not intended to cover all possible uses, directions, precautions, warnings, drug interactions, allergic reactions, or adverse effects. If you have questions about the drugs you are taking, check with your doctor, nurse or pharmacist. Copyright 4399-5150 [employer]. Version: 08.19. Revision Date: 04/20/2023. acetaminophen and [...] may report side effects to FDA at 5-034-COE-5296. What other drugs will affect acetaminophen and [...] affect acetaminophen and hydrocodone, including prescription and kzjc-rvu-obpcwye medicines, vitamins, and herbal products. Not all [...] to ensure that the information provided by [employer] ('[employer]') is accurate, up-to-date, and complete, but no guarantee is made to that effect. Drug information contained herein may be time sensitive. [employer] information has been compiled for use by healthcare practitioners and consumers in the [place] and therefore [employer] does not warrant that uses outside of the [place] are appropriate, unless specifically indicated otherwise. [employer] drug information does not endorse drugs, diagnose patients or recommend therapy. [employer] drug information is an informational resource designed [...] effective or appropriate for any given patient. [employer] does not assume any responsibility for any aspect of healthcare administered with the aid of information [employer] provides. The information contained herein is not intended to cover all possible uses, directions, precautions, warnings, drug interactions, allergic reactions, or adverse effects. If you have questions about the drugs you are taking, check with your doctor, nurse or pharmacist. Copyright 1792-1599 [employer]. Version: 19.. Revision Date: 05/09/2023. Education Materials [...] If needed, more treatment may be started. 6979-6473 [employer] [facility]. [address] [place] [address], [place] [address]. All rights reserved. This information is not [...] blood in stool Seizure Loss of consciousness 4337-5512 [employer] [facility]. [address] [place] [address], [place] [address]. All rights reserved. This information is not intended as a substitute for professional medical care. Always follow your healthcare professional's instructions. Additional Information VACCINATE! IT SAVES LIVES! Members of the community who have not yet received the COVID-19 vaccine and would like to receive it can visit one of [facility] vaccine clinics. There are many vaccine clinic locations within the [facility]. For locations and available times, please visit [email or web address] . It is important to note that some COVID mobile vaccine clinics are held outdoors and may be canceled in rainy or stormy conditions. To learn more about pediatric vaccinations (ages 5-11), we invite you to visit the [facility] webpage. [email or web address]/pages [email or web address]-[email or web address]-A sked-[email or web address].html To learn more about the COVID-19 vaccine, we invite you to visit the CDC website for a list of frequently asked questions. https://www.cdc.gov/coronavirus/2019 -ncov/vaccines/faq.html [facility] Patient Portal Access Instructions: Stay connected with your healthcare team and access your personal medical information anytime with the [facility] Patient Portal. If you would like a full copy of your medical records please contact the [facility] Medical Records Department Tuesday through Tuesday between 8a.m. and 4:30p.m. Please follow the directions below to access the portal: 1.Access the email account you provided upon registration to the hospital.2.Look for an invitation email from [facility].3.Open the email and access the invitation link: Accept Invitation to [facility]4.Fill in the required azul to create your account. Sign into [email or web address] with your username and password that you [...] you will allow to register on the [employer] Patient Portal for access to your information. You can also access the [employer] Patient Portal on the Petcube. Simply click on Health Records under Health Data and then click on the [employer] logo. HOW TO SAFELY DISPOSE OF PRESCRIPTION [...] Call your local pharmacy or go to [email or web address] to find one close to you.3.Make use of household items: Use cat litter or old coffee grounds to dispose medications if other options are not available. Mix your drugs with these household products, seal them in an airtight container and throw it into the garbage. Call [facility]: [phone] to be sure your drugs can be [...] read and u (more content not included)... [facility] 05-10-2023 Miscellaneous Notes The following approved medication requests have been transmitted electronically. Requested Prescriptions Signed Prescriptions Disp Refills lacosamide (VIMPAT) 100 mg tab 270 tablet 1 Si tab in am and 2 tabs in pm Authorizing Provider: ALAINA TOMLIN APRN.HAMLET Prescription Refill: Requested by: patient Please E-Scribe Caller Contact Number: Pharmacy Name: [email or web address] Pharmacy Number: [id number] Generic/ brand: Generic 30 or 90 day supply requested: 90 Last appointment: 11/20/21 Next Appointment: 06/14/[address] Aldrich documented in this encounter [facility] 05-09-2023 Hospital Discharge instructions Patient Education [...] blood in stool Seizure Loss of consciousness 9160-5956 [facility]. [address] [place] [address]. All rights reserved. This information is not intended as a substitute for professional medical care. Always follow your healthcare professional's instructions. Follow Up Care 05/09/2023 08:08:20 With:[facility] Address: When:2-4 days With:Go to emergency room if symptoms worsen Address:Unknown When:2-4 days [facility] 05-09-2023 Note Discharge Instructions Thank you for allowing [facility] to assist you with your healthcare needs. The following is important discharge information regarding your hospital visit. Diagnosis from Today's Visit Medical screening exam Pancreatitis What to Do Next Instructions from Your Care Team Clear liquid diet. Advance as tolerated. No qualifying data available. Post Acute Orders No qualifying data available. You Need to Schedule the Following Appointments Follow Up with [facility] When Within 2-4 days Where: Follow Up [...] may report side effects to FDA at 0-201-RRS-9648. What other drugs will affect acetaminophen and [...] affect acetaminophen and oxycodone, including prescription and wtrc-lej-rwuliyp medicines, vitamins, and herbal products. Not all [...] to ensure that the information provided by [employer] ('[employer]') is accurate, up-to-date, and complete, but no guarantee is made to that effect. Drug information contained herein may be time sensitive. [employer] information has been compiled for use by healthcare practitioners and consumers in the [place] and therefore [employer] does not warrant that uses outside of the [place] are appropriate, unless specifically indicated otherwise. [employer] drug information does not endorse drugs, diagnose patients or recommend therapy. [employer] drug information is an informational resource designed [...] effective or appropriate for any given patient. [employer] does not assume any responsibility for any aspect of healthcare administered with the aid of information [employer] provides. The information contained herein is not intended to cover all possible uses, directions, precautions, warnings, drug interactions, allergic reactions, or adverse effects. If you have questions about the drugs you are taking, check with your doctor, nurse or pharmacist. Copyright 8547-0420 [employer]. Version: 22.. Revision Date: 04/21/2023. ondansetron (oral) [...] may report side effects to FDA at 0-697-NXO-5348. What other drugs will affect ondansetron? Ondansetron [...] interact with ondansetron. This includes prescription and wjyy-zqn-nnfctuv medicines, vitamins, and herbal products. Give a [...] to ensure that the information provided by [employer]. [employer]') is accurate, up-to-date, and complete, but no guarantee is made to that effect. Drug information contained herein may be time sensitive. [employer] information has been compiled for use by healthcare practitioners and consumers in the [place] and therefore [employer] does not warrant that uses outside of the [place] are appropriate, unless specifically indicated otherwise. [employer] drug information does not endorse drugs, diagnose patients or recommend therapy. [employer] drug information is an informational resource designed [...] effective or appropriate for any given patient. [employer] does not assume any responsibility for any aspect of healthcare administered with the aid of information [employer] provides. The information contained herein is not intended to cover all possible uses, directions, precautions, warnings, drug interactions, allergic reactions, or adverse effects. If you have questions about the drugs you are taking, check with your doctor, nurse or pharmacist. Copyright 8845-1920 [employer]. Version: 16.. Revision Date: 04/21/2023. Education Materials [...] blood in stool Seizure Loss of consciousness 3783-5468 [facility] [facility]. [address] [place] [address], [place] [address]. All rights reserved. This information is not intended as a substitute for professional medical care. Always follow your healthcare professional's instructions. Additional Information VACCINATE! IT SAVES LIVES! Members of the community who have not yet received the COVID-19 vaccine and would like to receive it can visit one of [facility] vaccine clinics. There are many vaccine clinic locations within the [facility]. For locations and available times, please visit [email or web address] . It is important to note that some COVID mobile vaccine clinics are held outdoors and may be canceled in rainy or stormy conditions. To learn more about pediatric vaccinations (ages 5-11), we invite you to visit the [facility] webpage. [email or web address]/pages [email or web address]-Frequently-A sked-Questions.html To learn more about the COVID-19 vaccine, we invite you to visit the CDC website for a list of frequently asked questions. https://www.cdc.gov/coronavirus/2019 -ncov/vaccines/faq.html [facility] Patient Portal Access Instructions: Stay connected with your healthcare team and access your personal medical information anytime with the [facility] Patient Portal. If you would like a full copy of your medical records please contact the [facility] Medical Records Department Tuesday through Tuesday between 8a.m. and 4:30p.m. Please follow the directions below to access the portal: 1.Access the email account you provided upon registration to the hospital.2.Look for an invitation email from [facility].3.Open the email and access the invitation link: Accept Invitation to [facility]4.Fill in the required azul to create your account. Sign into [email or web address] with your username and password that you [...] you will allow to register on the [facility] Patient Portal for access to your information. You can also access the [facility] Patient Portal on the Survios leslie. Simply click on Health Records under Health Data and then click on the [employer] logo. HOW TO SAFELY DISPOSE OF PRESCRIPTION [...] Call your local pharmacy or go to [email or web address] to find one close to you.3.Make use of household items: Use cat litter or old coffee grounds to dispose medications if other options are not available. Mix your drugs with these household products, seal them in an airtight container and throw it into the garbage. Call [facility]: [phone] to be sure your drugs can be [...] aware that I should contact my doctor. Patient/Plant Operations Coordinator Signature: ___ Date/Time: Relationship to Patient: _ Witness Name/Signature: Date/Time: [facility] 05-09-2023 Miscellaneous Notes The following approved medication [...] by: patient Please E-Scribe Caller Contact Number: [phone] (home) Pharmacy Name: [facility] Number: [id number] Generic/ brand: generic 30 or 90 day supply requested: 90 Last appointment: 11/20/21 Next Appointment: 06/14/[address] aldrich documented in this encounter [facility] 04-30-2023 Emergency department Note Called [facility] to give Nurse to nurse report but was informed that the nurse already received report. Chart and records sent with four horse hitch driver Caron Saucedo RN 04/30/23202 [facility] 04-30-2023 Emergency department Note Called [facility] to give Nurse to nurse report but was informed that the nurse already received report. Chart and records sent with four horse hitch driver Caron Saucedo RN 04/30/23202 Pt arrived through [facility] ED with [facility]. This RN spoke with Gael VILLANUEVA coordinator at [facility] ED. Pt was en route to [facility] in [place] for psych admit. [facility] states to this RN that while en route to [facility]- pt tried reaching to grab crew car driver and had change in mental status. [facility] dispatch advised to come to nearest ED. Pt arrived to triage in wheelchair with EMS, mumbling words, not making sense. Pt did verify name, , address once registered. This RN got report from Gael at [facility]- Pt had arrived today at [facility] for anxiety and depression, was pink slipped. Pt has had previous admissions for psychosis in past. Drug screen per RN in ED today was positive for opiates, PCP, marijuana. Pt has allergies to Penicillin, Neurontin, sulfa. [facility] was notifed of pt being brought to [facility] ED. Chayito Stated pt had left ED calm and cooperative. This RN called [facility] facility and spoke with Dianne VILLANUEVA. Bed is held for pt once cleared by [facility] ED. Will fax paperwork needed to [facility] prior to transport. Jennifer Hancock RN 04/29/23 2322 Jennifer Hancock RN 04/29/23 2333 Jennifer Hancock RN 04/29/23 2342 Jennifer Hancock RN 04/29/23 2348 Room cleared and made safe per protocol, protective services in ED for safety of patient and staff. Patient in gown already from transport. Belongings already bagged and brought in by critical care transport nurse, checked by [facility] protective services Caron Saucedo RN 04/29/23 6273 EMERGENCY DEPARTMENT ENCOUNTER Pt Name: Dorothea Rutledge Birthdate 1975 Date of evaluation: 04/29/2023 ED Provider: Lisbeth Davies DO CHIEF COMPLAINT Chief Complaint Patient presents with Psychiatric Evaluation Being transported from [facility] to [facility] for behavioral, anxiety and depression. En route patient became aggressive and confused so the oil transport driver came here for emergency assistance. Word [...] complaint of agitation. Patient was initially at [facility], seen for similar agitation and acting bizarrely. Patient was medically cleared and plan to admit to [facility]. In route from [facility] patient was initially calm and cooperative [...] and unwillingness to remain still. Work-up from [facility] was reviewed, minimal leukocytosis of 11.2, [...] cooperative. Patient is stable for transfer to [facility], discussed with [facility] today are willing to continue to accept patient in transfer. Patient was transferred in stable condition by EMS to [facility] for further management. CRITICAL CARE TIME Total [...] DO 04/30/23 0045 documented in this encounter [facility] 04-29-2023 Emergency department Note Pt arrived through [facility] ED with [facility]. This RN spoke with Gael RN coordinator at [facility] ED. Pt was en route to [facility] in [place] for psych admit. [facility] states to this RN that while en route to [facility]- pt tried reaching to grab crew car driver and had change in mental status. [facility] dispatch advised to come to nearest ED. Pt arrived to triage in wheelchair with EMS, mumbling words, not making sense. Pt did verify name, , address once registered. This RN got report from Gael at [facility]- Pt had arrived today at [facility] for anxiety and depression, was pink slipped. Pt has had previous admissions for psychosis in past. Drug screen per RN in ED today was positive for opiates, PCP, marijuana. Pt has allergies to Penicillin, Neurontin, sulfa. [facility] was notifed of pt being brought to [facility] ED. Chayito Stated pt had left ED calm and cooperative. This RN called [facility] facility and spoke with Dianne VILLANUEVA. Bed is held for pt once cleared by [facility] ED. Will fax paperwork needed to [facility] prior to transport. Jennifer Hancock RN 04/29/23 2322 Jennifer Hancock RN 04/29/23 2333 Jennifer Hancock RN 04/29/23 2342 Jennifer Hancock RN 04/29/23 2348 [facility] 04-29-2023 Emergency department Note Room cleared and made safe per protocol, protective services in ED for safety of patient and staff. Patient in gown already from transport. Belongings already bagged and brought in by critical care transport nurse, checked by [facility] protective services Caron Saucedo RN 04/29/23 3625 [facility] 04-29-2023 Physician Emergency department Note EMERGENCY DEPARTMENT ENCOUNTER Pt Name: Dorothea Rutledge Birthdate 1975 Date of evaluation: 04/29/2023 ED Provider: Lisbeth Davies DO CHIEF COMPLAINT Chief Complaint Patient presents with Psychiatric Evaluation Being transported from [facility] to [facility] for behavioral, anxiety and depression. En route patient became aggressive and confused so the oil transport driver came here for emergency assistance. Word [...] complaint of agitation. Patient was initially at [facility], seen for similar agitation and acting bizarrely. Patient was medically cleared and plan to admit to [facility]. In route from [facility] patient was initially calm and cooperative [...] and unwillingness to remain still. Work-up from [facility] was reviewed, minimal leukocytosis of 11.2, [...] cooperative. Patient is stable for transfer to [facility], discussed with generations today are willing to continue to accept patient in transfer. Patient was transferred in stable condition by EMS to [facility] for further management. CRITICAL CARE TIME Total [...] Medicine Provider Lisbeth Davies DO 04/30/23 0045 [facility] 04-29-2023 Nurse Progress note Patient stopped heat treater apprentice care at 2155. Patient care transferred to transport to [facility]. Patient transported to [facility]. Digitally Signed by Shantell Mulligan LPN on 04/29/2023 10:16 PM [facility] 04-29-2023 Nurse Progress note patient ambulated out of room and attempted to leave ER. patient attempted to enter another patients room and was stopped by staff. patient redirected back into room and heat treater apprentice care started for safety [place] [address] Quiroz. Security at bedside for wanding procedure Digitally Signed by Shantell Mulligan LPN on 04/29/2023 08:13 PM [facility] 04-29-2023 SARS-CoV-2 (COVID-19) RNA SANNA+probe Ql (Nph) Negative *NA* (04/29/23 12:42 PM) AO Auto Urine SS 04-29-2023 Note Sinus tachycardia Left atrial enlargement Left axis deviation Low voltage, precordial leads Borderline T abnormalities, inferior leads Borderline prolonged QT interval Electronic Signature: MD SAWYER, LETHA VASQUEZ 04/29/2023 15:00:27 [facility] 04-28-2023 Hospital Discharge instructions Activity:activity as tolerated.Follow Up Appointment 1:Physician/Dept/Service: Cj Rivera CNP, PCPScheduled Date/Time: 03-May-2023 13:00Location: [address] [address]Phone Number: [phone]: Please bring insurance information and photo IDFollow Up Appointment 2:Physician/Dept/Service: Dr. Colton Hicks, GastroenterologyScheduled Date/Time: 18-May-2023 10:20Location: [facility], [id number] [place] [address], [place] [address] [address]Phone Number: [phone]: Please bring insurance information and photo ID [facility] 04-26-2023 Reason for referral (narrative) Reason for Referral: ED visit 04/26 p/w epigastric pain from acute/chronic pancreatitis exacerbation [facility] 04-25-2023 Note Discharge Instructions Thank you for [...] Schedule the Following Appointments Follow Up with [facility] When In 1 day Why: Go directly [...] blood in stool Seizure Loss of consciousness 4520-5522 [employer]. [address] [place] [address], [place] [address]. All rights reserved. This information is not intended as a substitute for professional medical care. Always follow your healthcare professional's instructions. Additional Information VACCINATE! IT SAVES LIVES! Members of the community who have not yet received the COVID-19 vaccine and would like to receive it can visit one of [facility] vaccine clinics. There are many vaccine clinic locations within the [facility]. For locations and available times, please visit www.[email or web address].[place].gov/ . It is important to note that some COVID mobile vaccine clinics are held outdoors and may be canceled in rainy or stormy conditions. To learn more about pediatric vaccinations (ages 5-11), we invite you to visit the [facility] webpage. https://www.[facility].org/pages /8850-Wzhdc-Xrjdemqhsim-Frequently-A sked-Questions.html To learn more about the COVID-19 vaccine, we invite you to visit the CDC website for a list of frequently asked questions. https://www.cdc.gov/coronavirus/2019 -ncov/vaccines/faq.html [facility] Patient Portal Access Instructions: Stay connected with your healthcare team and access your personal medical information anytime with the [facility] Patient Portal. If you would like a full copy of your medical records please contact the [facility] Medical Records Department Tuesday through Tuesday between 8a.m. and 4:30p.m. Please follow the directions below to access the portal: 1.Access the email account you provided upon registration to the [facility].2.Look for an invitation email from [facility].3.Open the email and access the invitation link: Accept Invitation to [facility]4.Fill in the required azul to create your account. Sign into [email or web address] with your username and password that you [...] you will allow to register on the [facility] Patient Portal for access to your information. You can also access the [facility] Patient Portal on the Survios leslie. Simply click on Health Records under [...] Call your local pharmacy or go to http://bit.Easy Vino/5S4Gw6d to find one close to you.3.Make use of household items: Use cat litter or old coffee grounds to dispose medications if other options are not available. Mix your drugs with these household products, seal them in an airtight container and throw it into the garbage. Call [facility]: [phone] to be sure your drugs can be [...] aware that I should contact my doctor. Patient/Plant Operations Coordinator Signature: ___ Date/Time: Relationship to Patient: _ Witness Name/Signature: Date/Time: [facility] 04-25-2023 Hospital Discharge instructions Patient Education 04/25/2023 [...] blood in stool Seizure Loss of consciousness 9209-1757 [employer] [facility]. [address] [place] [address], [place] [address]. All rights reserved. This information is not intended as a substitute for professional medical care. Always follow your healthcare professional's instructions. Follow Up Care 04/25/2023 00:15:39 With:[facility] Address:Unknown When:Within 1 Day(s) Comments:Go directly to for further evaluation and treatment. [facility] 04-25-2023 Note ORIGINAL EXAMINATION: CT [...] Date: 04/25/2023 1:29:18 AM Ordering Provider: OPAL [facility] 04-03-2023 Discharge summary Date of Service 04.03.23 [...] on buprenorphine/naloxone combination therapy. She presented to [facility] with abdominal pain and mild elevation in lipase and CT scan consistent with prior pancreatitis and was admitted. She continued to have significant pain and no real causal factor was found for pancreatitis. Throughout this workup she had an IgG4 level that came back marginally positive. Given her intractable symptoms and possible etiology of autoimmune, she was transferred to [facility] for GI evaluation. Patient continues to have [...] as much as possible. She was at [facility] for 3 days prior to coming to [facility] and did receive aggressive IV fluids, [...] Activity No qualifying data available. Discharge Disposition [facility] Information Provided To patient Digitally Signed by KAPIL SORIANO on 04/03/2023 01:42 PM [facility] 04-03-2023 Discharge summary Date of Service [...] on buprenorphine/naloxone combination therapy. She presented to [facility] with abdominal pain and mild elevation in lipase and CT scan consistent with prior pancreatitis and was admitted. She continued to have significant pain and no real causal factor was found for pancreatitis. Throughout this workup she had an IgG4 level that came back marginally positive. Given her intractable symptoms and possible etiology of autoimmune, she was transferred to [facility] for GI evaluation. Patient continues to have [...] as much as possible. She was at [facility] for 3 days prior to coming to [facility] and did receive aggressive IV fluids, [...] Activity No qualifying data available. Discharge Disposition [facility] Information Provided To patient Digitally Signed by KAPIL SORIANO on 04/03/2023 01:42 PM [facility] 04-02-2023 Nurse Progress note This nurse called [facility] and spoke with KAY White. Nurse to nurse report given regarding patient. Opportunity to answer questions given. Aware the transport scheduled to moss picker Patient here at [facility] at approx 12 am. Digitally Signed by Snow Dinh RN on 04/02/2023 10:37 PM [facility] 04-02-2023 Note Discharge Instructions Thank you for allowing [facility] to assist you with your healthcare needs. [...] 03:30 PM EDT CJ RIVERA [facility] [place] The Following Activity and Diet Have Been [...] to receive it can visit one of [facility] vaccine clinics. There are many vaccine clinic locations within the [facility]. For locations and available times, please visit [email or web address] It is important to note that some COVID mobile vaccine clinics are held outdoors and may be canceled in rainy or stormy conditions. To learn more about pediatric vaccinations (ages 5-11), we invite you to visit the [facility] webpage. https://www.Thinkspeeds.org/pages /6520-Xcknb-Voegoltdkqu-Frequently-A sked-Questions.html To learn more about the COVID-19 vaccine, we invite you to visit the CDC website for a list of frequently asked questions.https://www.cdc.gov/edge virus/2019-ncov/vaccines/faq.html [employer] Patient Portal Access Instructions: Stay connected with your healthcare team and access your personal medical information anytime with the [employer] Patient Portal. Please follow the directions below to create your [employer] account: 1.Access the email account you provided upon registration to the hospital/physician office.2.Look for an invitation email from [facility].3.Open the email and access the invitation link: Accept Invitation to [facility].4.Fill in the required azul to create your account. To access your account, visit [facility]/Graphene EnergyOneChart. Click the blue button labeled Access Patient [...] you will allow to register on the [facility] besomebody.Chart Patient Portal for access to your information. You can also access the [facility] Patient Portal on the [facility] leslie. Simply click on Patient Portal and then log into your account. If you would like to receive a full copy of your medical records, please contact the [facility] Medical Records Department by calling [phone], Tuesday through Tuesday between 8 a.m. and [...] Call your local pharmacy or go to [email or web address].Easy Vino/[email or web address] to find one close to you.3.Make use of household items: Use cat litter or old coffee grounds to dispose medications if other options are not available. Mix your drugs with these household products, seal them in an airtight container and throw it into the garbage. Call [facility]: [phone] to be sure your drugs can be [...] aware that I should contact my doctor. Patient/Plant Operations Coordinator Signature: ___ Date/Time: Relationship to Patient: _ Witness Name/Signature: Date/Time: [facility] 04-02-2023 Note Date of Service 04.02.23 [...] on buprenorphine/naloxone combination therapy. She presented to [facility] with abdominal pain and mild elevation in lipase and CT scan consistent with prior pancreatitis and was admitted. She continued to have significant pain and no real causal factor was found for pancreatitis. Throughout this workup she had an IgG4 level that came back marginally positive. Given her intractable symptoms and possible etiology of autoimmune, she was transferred to [facility] for GI evaluation. Patient continues to have [...] pancreatic mass. Spoke with Dr. Ames from [facility] who accepted the patient however was told [...] by KAPIL SORIANO on 04/02/2023 04:22 PM [facility] 04-02-2023 Note Date of Service 04.02.23 [...] on buprenorphine/naloxone combination therapy. She presented to [facility] with abdominal pain and mild elevation in lipase and CT scan consistent with prior pancreatitis and was admitted. She continued to have significant pain and no real causal factor was found for pancreatitis. Throughout this workup she had an IgG4 level that came back marginally positive. Given her intractable symptoms and possible etiology of autoimmune, she was transferred to [facility] for GI evaluation. Patient continues to have [...] pancreatic mass. Spoke with Dr. Ames from [facility] who accepted the patient however was told [...] by KAPIL SORIANO on 04/02/2023 04:22 PM [facility] 04-02-2023 Gastroenterology Consult note Date of [...] Domestic Concerns: Denies. Living situation: Home/Independent. 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 Lives In: 1st floor [...] MATT LOVELACE MD on 04/02/2023 09:14 AM [facility] 04-02-2023 Note Chief Complaint Transition plan Transitional Action Points Abdominal pain with underlying recurrent pancreatitis Followed by GI team, plans for transferring to [facility] for EUS No noted hospitalizations within the [...] Patient is a 47-year-old female admitted to [facility] with pancreatitis. Prior to her hospital admission, [...] Rate18(APR 01 21:45)16(APR 01 14:41)18(APR 01 13:46) UON249(APR 02 00:00)117(APR 02 00:00)129(APR 01 18:43) DBP75(APR [...] Domestic Concerns: Denies. Living situation: Home/Independent. 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 Lives In: 1st floor [...] by CARLENE MORENO on 04/03/2023 12:48 PM [facility] 04-01-2023 History and physical note History [...] on buprenorphine/naloxone combination therapy. She presented to [facility] with abdominal pain and mild elevation in lipase and CT scan consistent with prior pancreatitis and was admitted. She continued to have significant pain and no real causal factor was found for pancreatitis. Throughout this workup she had an IgG4 level that came back marginally positive. Given her intractable symptoms and possible etiology of autoimmune, she was transferred to [facility] for GI evaluation. Here the patient is [...] to Inpatient Aqua K Machine w/Large pad (05716) Code Status Consult to Physician Diet Order [...] Domestic Concerns: Denies. Living situation: Home/Independent. 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 Lives In: 1st floor [...] VALLE MD FACP on 04/01/2023 07:13 PM [facility] 04-01-2023 Evaluation + Plan note Extrac [...] to Inpatient Aqua K Machine w/Large pad (36230) Code Status Consult to Physician Diet Order ROUTINE EMERGENCY TREATMENT - Full Code Future Appointments Appointment Date:04/18/2023 03:30:00 PM Scheduled Provider:CJ RIVERA Location:[facility] Appointment Type:PC OV TCM 30 Diagnostic [...] Metabolic Panel 06/09/22 * N-Terminal proBNP 12/07/22 [facility] 07-12-2023 Note. MICRO - Microbiology PROCEDURE: [...] Locations *1: This test was performed at: [facility], [address] [place] [address], [id number] , [facility] ([place])03-11-2023 Hospital Discharge instructions Patient Education 03/11/2023 14:46:12 Acute Pancreatitis, Vmxp-sd-Ufqr Acute Pancreatitis Acute pancreatitis happens when the [...] if it caused your condition. Medicines Take txco-zre-imzfklp and prescription medicines only as told by your doctor. Ask your doctor if the medicine prescribed to you: ?Requires you to avoid driving or using heavy machinery. ?Can cause trouble pooping (constipation). You may need to take steps to prevent or treat trouble pooping: ?Take uzvz-kjx-ixkgjwv or prescription medicines. ?Eat foods that are [...] 02/21/2009 Document Revised: 06/25/2019 Document Reviewed: 06/25/2019 [employer] Patient Education 2020 [employer]. Follow Up Care 03/07/2023 16:24:16 With:CJ RIVERA MANAGER PROFESSIONAL DEVELOPMENT-SPECIAL NEEDS TEACHER Address: [address] [facility] [place] [address]- [phone] When:03/14/2023 13:00:00 Comments:This is your post-hospital follow-up appointment. [facility] 06-23-2023 Note Discharge Instructions Thank you for allowing [facility] to assist you with your healthcare needs. The following is importantdischarge information regarding your hospital visit. Your Care Team [facility] Your Diagnosis Pancreatitis Abdominal pain [...] There are 2 GI speciality groups in [place]: [facility] - [phone] [facility] [place] - [phone] You could try one of these practices if you are unable to get into Dr. Mello sooner. Scheduled Follow-Up Appointments Appointment Type When With Where Contact InformationPC OV Hospital Follow-Up 03/14/2023 01:00 PM EDT CJ RIVERA [facility] 04/18/2023 03:30 PM EDT CJ RIVERA [facility] Follow Up Appointments Follow Up with CJ RIVERA When 03/14/2023 01:00 PM EDT Why: This is your post-hospital follow-up appointment. Where: [address] [address]- [phone] The Following Activity and Diet Have Been [...] Duration: 3 Days Pickup at [facility] New ondansetron (ondansetron 4 mg oral tablet) 1 tab(s) by mouth Every 6 hours as needed for Nausea/Vomiting Pickup at [facility] Unchanged APAP/ butalbital/ caffeine (APAP/ [...] total of 225 mg/ day. Pharmacy Information [facility]: [address] [place], [place] [phone] Please take this list to your next [...] may report side effects to FDA at 6-426-XEJ-6764. What other drugs will affect acetaminophen and [...] affect acetaminophen and oxycodone, including prescription and gbxi-aoc-kvbeevm medicines, vitamins, and herbal products. Not all [...] to ensure that the information provided by [employer]. ('Mult[employer]') is accurate, up-to-date, and complete, but no guarantee is made to that effect. Drug information contained herein may be time sensitive. Hello Inc information has been compiled for use by healthcare practitioners and consumers in the [place] and therefore Hello Inc does not warrant that uses outside of the [place] are appropriate, unless specifically indicated otherwise. [employer]'s drug information does not endorse drugs, diagnose patients or recommend therapy. [employer] drug information isan informational resource designed to [...] effective or appropriate for any given patient. [employer] does not assume any responsibility for any aspect of healthcare administered with the aid of information [employer] provides. The information contained herein is not intended to cover all possible uses, directions, precautions, warnings, drug interactions, allergic reactions, or adverse effects. If you have questions about the drugs you are taking, check with your doctor, nurse or pharmacist. Copyright 0487-2897 [employer]. Version: 20.03. Revision Date: 10/24/2020. ondansetron (oral) [...] may report side effects to FDA at 8-500-PTA-9293. What other drugs will affect ondansetron? Ondansetron [...] interact with ondansetron. This includes prescription and qdro-pcd-lnkqhir medicines, vitamins, and herbal products. Give a [...] to ensure that the information provided by [employer]. ('[employer]') is accurate, up-to-date, and complete, but no guarantee is made to that effect. Drug information contained herein may be time sensitive. [employer] information has been compiled for use by healthcare practitioners and consumers in the [place] and therefore Referanza.comum does not warrant that uses outside of the [place] are appropriate, unless specifically indicated otherwise. [employer]'s drug information does not endorse drugs, diagnose patients or recommend therapy. [employer]'s drug information isan informational resource designed to [...] effective or appropriate for any given patient. [facility] does not assume any responsibility for any aspect of healthcare administered with the aid of information [facility] provides. The information contained herein is not intended to cover all possible uses, directions, precautions, warnings, drug interactions, allergic reactions, or adverse effects. If you have questions about the drugs you are taking, check with your doctor, nurse or pharmacist. Copyright 4976-2802 [employer] Evergreen[employer]ENOVIXScienion. Version: 13.. Revision Date: 07/09/2016. Education Materials [...] if it caused your condition. Medicines Take wwlt-jgy-axphvrq and prescription medicines only as told by your doctor. Ask your doctor if the medicine prescribed to you: ? Requires you to avoid driving or using heavy machinery. ? Can cause trouble pooping (constipation). You may need to take steps to prevent or treat trouble pooping: ? Take svqr-wzr-bdhlbev or prescription medicines. ? Eat foods that [...] Document Reviewed: 06/25/2019 Elsevier Patient Education 2020 [employer]. Additional Information VACCINATE! IT SAVES LIVES! Members of the community who have not yet received the COVID-19 vaccine and would like to receive it can visit one of [facility] vaccine clinics. There are many vaccine clinic locations within the [facility]. For locations and available times, please visit https://[email or web address].gov/. It is important to note that some COVID mobile vaccine clinics are held outdoors and may be canceled in rainy or stormy conditions. To learn more about pediatric vaccinations (ages 5-11), we invite you to visit the [facility] webpage. https://www.akPascal Metricss.org/pages/7090-Isivn-Ldryafqbahd-Lpryhktxmo-Mhhrt-Ltx stions.htmlTo learn more about the COVID-19 vaccine, we invite you to visit the CDC website for a list of frequently asked questions.https://www.cdc.gov/coronavirus/2019-ncov/vaccines/faq.html [employer] Patient Portal Access Instructions: Stay connected with your healthcare team and access your personal medical information anytime with the [employer] Patient Portal. Please follow the directions below to create your [employer] account: 1.Access the email account you provided upon registration to the hospital/physician office.2.Look for an invitation email from [facility].3.Open the email and access the invitation link: AcceptInvitation to [employer].4.Fill in the required azul to create your account. To access your account, visit [facility]/Graphene EnergyOneChart. Click the blue button labeled Access Patient [...] who you will allowto register on the [employer] Patient Portal for access to your information. You can also access the [facility] Patient Portal on the [facility] leslie. Simply click on Patient Portal and then log into your account. If you would like to receive a full copy of your medical records, please contact the [facility] Medical Records Department by calling [phone], Tuesday through Tuesday between 8 a.m. and [...] Call your local pharmacy or go to http://Alkermes/7R1Al4o to find one close to you.3.Make use of household items: Use cat litter or old coffee grounds to dispose medications if other options arenot available. Mix your drugs with these household products, seal them in an airtight container andthrow it into the garbage. Call [facility]: [phone] to be sure your drugs can be [...] COPY. Signatures Patient Education Materials Acute Pancreatitis, Ybwl-on-Ecru Medication Leaflets acetaminophen and oxycodone, ondansetron (oral) My discharge plan and instructions have been reviewed and explained to me and I,DEMI RUTLEDGEANDA M understand my current condition and have read and understand these discharge instructions. I have received a written copy of the plan/instructions. If I have questions, I am aware that I should contact my doctor. Patient/Plant Operations Coordinator Signature: Date/Time: Relationship to Patient: Witness Name/Signature: Date/Time: [facility] Note Date of Service 03/10/2023 Chief Complaint [...] tab(s), Oral, q6h sodium chloride nasal 0.65% [place] 2 spray(s), Nostril, each, q4h Lab Results [...] by YANIRA BURCH on 03/10/2023 12:10 PM [facility] [id number] Note Date of Service 03/09/2023 Chief Complaint [...] tab(s), Oral, q6h sodium chloride nasal 0.65% [place] 2 spray(s), Nostril, each, q4h Lab Results [...] (s): 0.77 Imaging Results and Diagnostics [facility] Result Date: March 08, 2023 [...] by YANIRA BURCH on 03/09/2023 12:17 PM [facility]06-20-2023 Note ORIGINAL EXAMINATION: MRC03/08/2023 1:41 pm TECHNIQUE: [...] Date: 03/08/2023 7:52:37 PM Ordering Provider: SUJATHA [facility]06-20-2023 Evaluation + Plan noteExtracted from: Title:History and [...] PM Scheduled Provider:CJ RIVERA Location:[facility] Appointment Type:[facility] Follow-Up Appointment Date:04/18/2023 03:30:00 PM Scheduled Provider:CJ RIVERA Location:[facility] Appointment Type:PC OV Future Scheduled Tests Laboratory* Basic Metabolic Panel 12/07/22 * Magnesium Level 12/07/22 * Complete Blood Count 12/07/22 * Lipid Profile 06/09/22 * Vitamin D Level 06/09/22 * Complete Metabolic Panel 06/09/22 * N-Terminal proBNP 12/07/22 [facility] 06-20-2023 Note ORIGINAL EXAMINATION: MRC03/08/2023 1:41 pm [...] Date: 03/08/2023 7:52:37 PM Ordering Provider: SUJATHA [facility]06-20-2023 Note Date of Service 03/08/2023 Chief Complaint abd pain with hx pancreatitis History of Present Illness Patient is a 47-year-old female, who follows with Cj Rivera CNP with a past medical history significant for chronic diastolic heart failure, factor V deficiency, depression, and migraines, presented to [facility] emergency department with the chief complaint of [...] 8 before medication. Patient was in the [facility] ED with abdominal pain in early January and diagnosedwith pancreatitis. She states she was told it was not too bad and was discharged home. She was admitted to [facility] for pancreatitis about a month ago. [...] Domestic Concerns: Denies. Living situation: Home/Independent. 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 Lives In: 1st floor [...] by YANIRA BURCH on 03/08/2023 12:14 PM [facility]06-19-2023 Note ORIGINAL EXAMINATION: CT OF THE ABDOMEN [...] 03/07/2023 9:14:40 PM Ordering Provider: ROBERTO BIRMINGHAM [facility]06-19-2023 Note ORIGINAL EXAMINATION: CT OF THE ABDOMEN [...] Sign Date: 03/07/2023 9:14:40 PM Ordering Provider: [facility]05-09-2023 Hospital Discharge instructions Patient Education 01/25/2023 14:40:57 [...] providers about all of the prescription medicines, uchd-mxl-kpgsgtq medicines, vitamins, and supplements you take. Certain [...] symptoms Desire to harm yourself or others 6342-5408 [employer]. [address] [place] [address]. All rights reserved. This information is not [...] if you keep having episodes of hyperglycemia. 8058-0472 [employer]. [address] [place] [address], [place] [address]. All rights reserved. This information is not intended as a substitute for professional medical care. Always follow [facility] professional's instructions. 01/25/2023 14:40:39 High Cholesterol High [...] which may or may not require fasting. 1338-6262 [employer]. [address] [place] [address], [place] [address]. All rights reserved. This information is not [...] or water and you are getting dehydrated 1599-4770 [employer]. [address] [place] [address]. All rights reserved. This information is not intended as a substitute for professional medical care. Always follow yourhealthcare professional's instructions. Follow Up Care 01/25/2023 10:20:31 With:CJ RIVERA Address: [address] [facility] [place] [address]- [phone] Business (1) When:2-4 days Comments:Schedule appointment as [...] TO BY YOUR PCP OR NEUROLOGIST With:your test engine evaluator Address:Unknown When:2-4 days Comments:Schedule appointment as soon as possibleReturn to ED if symptoms worsen [facility] 05-09-2023 Miscellaneous Notes* Telephone Encounter - Alaina [...] Provider: ALAINA TOMLIN APRN.HAMLET [facility] Note Discharge Instructions Thank you for [...] heidy Where: [address] [facility] [place] [address] [phone] Business (1) Follow Up with your neurologist When Within 2-4 days Why: Schedule appointment as soon as possible Return to ED if symptoms worsen YOU CANNOT DRIVE UNTIL CLEARED TO BY YOUR PCP OR NEUROLOGIST Follow Up with your test engine evaluator When Within 2-4 days Why: Schedule appointment [...] providers about all of the prescription medicines, wmhw-cfk-apsmkyk medicines, vitamins, and supplements you take. Certain [...] symptoms Desire to harm yourself or others 2462-9493 [employer]. [address] [place] [address]. All rights reserved. This information is not [...] if you keep having episodes of hyperglycemia. 0898-0817 [employer]. [address] [place] [address]. All rights reserved. This information is not [...] which may or may not require fasting. 3564-4050 [employer]. [address] [place] [address], [place] [address]. All rights reserved. This information is not [...] or water and you are getting dehydrated 5769-0067 [employer]. [address] [place] [address]. All rights reserved. This information is not intended as a substitute for professional medical care. Always follow yourhealthcare professional's instructions. Additional Information VACCINATE! IT SAVES LIVES! Members of the community who have not yet received the COVID-19 vaccine and would like to receive it can visit one of [facility] vaccine clinics. There are many vaccine clinic locations within the [facility]. For locations and available times, please visit www.[email or web address]/. It is important to note that some COVID mobile vaccine clinics are held outdoors and may be canceled in rainy or stormy conditions. To learn more about pediatric vaccinations (ages 5-11), we invite you to visit the [facility] webpage. https://www.[facility].org/pages/2712-Wzjxp-Fboaomphuep-Mzncwciiii-Gjonp-Dnl stions.htmlTo learn more about the COVID-19 vaccine, we invite you to visit the CDC website for a list of frequently asked questions. https://www.cdc.gov/coronavirus/2019-ncov/vaccines/faq.html [facility] Patient Portal Access Instructions: Stay connected with your healthcare team and access your personal medical information anytime with the [facility] Patient Portal. If you would like a full copy of your medical records please contact the [facility] Medical Records Department Tuesday through Tuesday between 8a.m. and 4:30p.m. Please follow the directions below to access the portal: 1.Access the email account you provided upon registration to the [facility].2.Look for an invitation email from [facility].3.Open the email and access the invitation link: Accept Invitation to [facility]4.Fill in the required azul to create your account. Sign into [email or web address] with your username and password that you [...] you will allow to register on the [facility] Patient Portal for access to your information. You can also access the [facility] Patient Portal on the Surv[employer] leslie. Simply click on Health Records under [employer] and then click on the Sean logo. [...] Call your local pharmacy or go to [email or web address] to find one close to you.3.Make use of household items: Use cat litter or old coffee grounds to dispose medications if other options arenot available. Mix your drugs with these household products, seal them in an airtight container andthrow it into the garbage. Call [facility]: [phone] to be sure your drugs can be [...] aware that I should contact my doctor. Patient/Plant Operations Coordinator Signature: Date/Time: Relationship to Patient: Witness Name/Signature: Date/Time: [facility]05-09-2023 Note ORIGINAL EXAMINATION: CT HEAD TECHNIQUE: Axial [...] 01/25/2023 2:09:03 PM Ordering Provider: LETHA CID [facility]05-09-2023 Note ORIGINAL EXAMINATION: CT OF THE ABDOMEN [...] Sign Date: 01/25/2023 2:06:59 PM Ordering Provider: [facility]05-09-2023 Note ORIGINAL EXAMINATION: CTA OF [...] Sign Date: 01/25/2023 2:05:57 PM Ordering Provider: [facility]05-09-2023 Note ORIGINAL EXAMINATION: CTA OF [...] Sign Date: 01/25/2023 2:05:57 PM Ordering Provider: [facility]05-09-2023 Note ORIGINAL EXAMINATION: CT HEAD [...] Jorge A Carlisle MD Preliminary Report By: Joreg A Carlisle MD Electronically signed By Jorge A Carlisle MD Dictated Date: 01/25/2023 2:01:52 PM Prelim Date: 01/25/2023 2:09:03 PM Sign Date: 01/25/2023 2:09:03 PM Ordering Provider: [facility]05-09-2023 Note ORIGINAL EXAMINATION: CT OF [...] Sign Date: 01/25/2023 2:06:59 PM Ordering Provider: [facility]03-21-2023 Evaluation + Plan note Future Scheduled Tests Laboratory* Basic Metabolic Panel 12/07/22 * Lipase Level 04/18/23 * Magnesium Level 12/07/22 * Complete Blood Count 12/07/22 * Lipid Profile 06/09/22 * Vitamin D Level 06/09/22 * Complete Metabolic Panel 04/18/23 * Complete Metabolic Panel 06/09/22 * N-Terminal proBNP 12/07/22 [facility] 03-21-2023 Miscellaneous Notes* Telephone Encounter - Alaina [...] Provider: ALAINA TOMLIN APRN.CNP [facility] Note ORIGINAL EXAMINATION: ONE XRAY VIEW [...] 12/06/2022 11:04:51 PM Ordering Provider: OPAL REYNOLDS [facility]03-20-2023 Hospital Discharge instructions Patient Education 12/06/2022 20:55:00 [...] Swelling, pain or redness in one leg 6544-4626 [employer]. [address] [place] [address], [place] [address]. All rights reserved. This information is not intended as a substitute for professional medical care. Always follow yourhealthcare professional's instructions. Follow Up Care 12/06/2022 20:43:19 With:CHINEDU ABARCA MD Address: [address] [place] [address] [place] [address] [phone] When:2-4 days With:Go to emergency room if symptoms worsen Address:Unknown When:2-4 days With:CJ RIVERA Address: [address] [phone] When:2-4 days [facility] 03-20-2023 Note Discharge Instructions Thank you for allowing [facility] to assist you with your healthcare needs. The following is importantdischarge information regarding your hospital visit. Diagnosis from Today's Visit Chest pain Increased heart rate What to Do Next Instructions from Your Care Team Follow-up with your primary care provider. Follow-up with your supervisor grading. Return to the emergency department if you experience worsening symptoms or any other care concern. No qualifying data available. Post Acute Orders No qualifying data available. You Need to Schedule the Following Appointments Follow Up with CHINEDU ABARCA MD When Within 2-4 days Where: [address] [facility] [address] [facility] [place] [address]- [phone] Follow Up with Go to emergency room if symptoms worsen When Within 2-4 days Follow Up with CJ RIVERA When Within 2-4 days Where: [address] [place] [address] [phone] Allergies penicillin (Rash) Neurontin (Vomiting) morphine (Cramping) sulfa drug Medications Please ask your primary doctor or pharmacist before taking any other medication not listed, including over the counter drugs, herbal medications, vitamins and or supplements as they may interact [facility] medications. What How Much When Why [...] Swelling, pain or redness in one leg 9078-3034 [employer] [facility]. [address] [place] [address], [place] [address]. All rights reserved. This information is not intended as a substitute for professional medical care. Always follow yourhealthcare professional's instructions. Additional Information VACCINATE! IT SAVES LIVES! Members of the community who have not yet received the COVID-19 vaccine and would like to receive it can visit one of [facility] vaccine clinics. There are many vaccine clinic locations within the State. For locations and available times, please visit www.[email or web address].gov/. It is important to note that some COVID mobile vaccine clinics are held outdoors and may be canceled in rainy or stormy conditions. To learn more about pediatric vaccinations (ages 5-11), we invite you to visit the [facility] webpage. https://www.[facility].org/pages/0803-Cxsla-Drpmlozzdhh-Lmtjnwuqls-Digpo-Grq stions.htmlTo learn more about the COVID-19 vaccine, we invite you to visit the CDC website for a list of frequently asked questions. https://www.cdc.gov/coronavirus/2019-ncov/vaccines/faq.html [employer] Patient Portal Access Instructions: Stay connected with your healthcare team and access your personal medical information anytime with the [facility] Patient Portal. If you would like a full copy of your medical records please contact the [facility] Medical Records Department Tuesday through Tuesday between 8a.m. and 4:30p.m. Please follow the directions below to access the portal: 1.Access the email account you provided upon registration to the hospital.2.Look for an invitation email from [facility].3.Open the email and access the invitation link: Accept Invitation to [facility]4.Fill in the required azul to create your account. Sign into www.[email or web address] with your username and password that you [...] you will allow to register on the [facility] Patient Portal for access to your information. You can also access the [facility] Patient Portal on the Survios leslie. Simply click on Health Records under [employer] and then click on the Sean logo. [...] Call your local pharmacy or go to [email or web address] [email or web address] to find one close to you.3.Make use of household items: Use cat litter or old coffee grounds to dispose medications if other options arenot available. Mix your drugs with these household products, seal them in an airtight container andthrow it into the garbage. Call [facility]: [phone] to be sure your drugs can be [...] aware that I should contact my doctor. Patient/Plant Operations Coordinator Signature: Date/Time: Relationship to Patient: Witness Name/Signature: Date/Time: [facility]03-20-2023 Note ORIGINAL EXAMINATION: ONE XRAY VIEW OF [...] Date: 12/06/2022 11:04:51 PM Ordering Provider: OPAL [facility]02-25-2023 Hospital Discharge instructions Patient Education 11/13/2022 18:42:58 [...] following occur: Loss of consciousness Vomiting blood [phone] [employer]. [address] [place] [address]. All rights reserved. This information is not [...] foods again, start with small amounts of ektq-zy-xmhkdw, low- fat foods. These include apple sauce, [...] increase stomach acid. Don't use aspirin or nuzx-ocd-xpicmxx pain and fever medicines, if possible. This includes nonsteroidal anti-inflammatory drugs (NSAIDs). Lose excess weight. Finish eating at least 2 hours before you go to bed or lie down. Raise the head of your bed. 9971-9992 [employer]. [address] [place] [address]. All rights reserved. This information is not intended as a substitute for professional medical care. Always follow yourhealthcare professional's instructions. Follow Up Care 11/13/2022 14:52:43 With:Your GI doctor as soon as possible Address:Unknown When:2-4 days With:CJ RIVERA Address: [address] [place] [address]- [phone] When:2-4 days [facility] 02-25-2023 Emergency department Discharge summary Discharge Instructions Thank you for allowing [facility] to assist you with your healthcare needs. [...] Within 2-4 days Where: [address] [place] [address]- [phone] Allergies penicillin (Rash) Neurontin (Vomiting) morphine (Cramping) [...] following occur: Loss of consciousness Vomiting blood 8970-1027 [facility]. [address] [place] [address], [place] [id number]. All rights reserved. This information is not [...] foods again, start with small amounts of zhht-ab-lwotbf, low- fat foods. These include apple sauce, [...] increase stomach acid. Don't use aspirin or olfd-mau-fjvocxx pain and fever medicines, if possible. This includes nonsteroidal anti-inflammatory drugs (NSAIDs). Lose excess weight. Finish eating at least 2 hours before you go to bed or lie down. Raise the head of your bed. 4330-8682 [employer]. [address] [place] [address], [place] [address]. All rights reserved. This information is not intended as a substitute for professional medical care. Always follow yourhealthcare professional's instructions. Additional Information VACCINATE! IT SAVES LIVES! Members of the community who have not yet received the COVID-19 vaccine and would like to receive it can visit one of [facility] vaccine clinics. There are many vaccine clinic locations within the [facility]. For locations and available times, please visit www.[email or web address].gov/. It is important to note that some COVID mobile vaccine clinics are held outdoors and may be canceled in rainy or stormy conditions. To learn more about pediatric vaccinations (ages 5-11), we invite you to visit the [facility] webpage. https://www.[facility].org/pages/9946-Qmhtr-Hzmfykssdlw-Wsngmomtxd-Iswsw-Piy stions.htmlTo learn more about the COVID-19 vaccine, we invite you to visit the CDC website for a list of frequently asked questions. https://www.cdc.gov/coronavirus/2019-ncov/vaccines/faq.html [facility] Patient Portal Access Instructions: Stay connected with your healthcare team and access your personal medical information anytime with the [facility] Patient Portal. If you would like a full copy of your medical records please contact the [facility] Medical Records Department Tuesday through Tuesday between 8a.m. and 4:30p.m. Please follow the directions below to access the portal: 1.Access the email account you provided upon registration to the hospital.2.Look for an invitation email from [facility].3.Open the email and access the invitation link: Accept Invitation to [facility]4.Fill in the required azul to create your account. Sign into [email or web address] with your username and password that you [...] you will allow to register on the [facility] Patient Portal for access to your information. You can also access the [facility] Patient Portal on the Survios leslie. Simply click on Health Records under [employer] and then click on the [employer] logo. HOW TO SAFELY DISPOSE OF PRESCRIPTION [...] Call your local pharmacy or go to [email or web address] Vino/[email or web address] to find one close to you.3.Make use of household items: Use cat litter or old coffee grounds to dispose medications if other options arenot available. Mix your drugs with these household products, seal them in an airtight container andthrow it into the garbage. Call [facility]: [phone] to be sure your drugs can be [...] aware that I should contact my doctor. Patient/Plant Operations Coordinator Signature: Date/Time: Relationship to Patient: Witness Name/Signature: Date/Time: [facility]02-25-2023 Evaluation + Plan note Diagnostic Tests Pending * Urine Culture 11/13/22 Future Scheduled Tests Laboratory* Lipid Profile 06/09/22 * Vitamin D Level 06/09/22 * Complete Metabolic Panel 06/09/22 [facility] 02-25-2023 Hospital Discharge instructions Patient Education 11/13/2022 [...] Swelling, pain or redness in one leg 8604-6270 [employer]. [address] [place] [address]. All rights reserved. This information is not intended as a substitute for professional medical care. Always follow yourhealthcare professional's instructions. Follow Up Care 11/12/2022 21:10:18 With:CJ RIVERA Address: [address] [address]- [phone] Business (1) When:2-4 days [facility] 02-25-2023 Note Discharge Instructions Thank you for allowing [facility] to assist you with your healthcare needs. The following is importantdischarge information regarding your hospital visit. Diagnosis from Today's Visit Chest pain Hypertension What to Do Next Instructions from Your Care Team No qualifying data available. Post Acute Orders No qualifying data available. You Need to Schedule the Following Appointments Follow Up with CJ RIVERA When Within 2-4 days Where: [address] [address]- [phone] Business (1) Allergies penicillin (Rash) Neurontin (Vomiting) [...] Swelling, pain or redness in one leg 8484-2012 [employer] [facility]. [address] [place] [address], [place] [address]. All rights reserved. This information is not intended as a substitute for professional medical care. Always follow yourhealthcare professional's instructions. Additional Information VACCINATE! IT SAVES LIVES! Members of the community who have not yet received the COVID-19 vaccine and would like to receive it can visit one of [facility] vaccine clinics. There are many vaccine clinic locations within the [facility]. For locations and available times, please visit www.[email or web address].gov/. It is important to note that some COVID mobile vaccine clinics are held outdoors and may be canceled in rainy or stormy conditions. To learn more about pediatric vaccinations (ages 5-11), we invite you to visit the [facility] webpage. https://www.[facility].org/pages/4059-Ikbwj-Zmopabqlcyr-Isfmivxdvu-Ntiow-Pof stions.htmlTo learn more about the COVID-19 vaccine, we invite you to visit the CDC website for a list of frequently asked questions. https://www.cdc.gov/coronavirus/2019-ncov/vaccines/faq.html [facility] Patient Portal Access Instructions: Stay connected with your healthcare team and access your personal medical information anytime with the [facility] Patient Portal. If you would like a full copy of your medical records please contact the [facility] Medical Records Department Tuesday through Tuesday between 8a.m. and 4:30p.m. Please follow the directions below to access the portal: 1.Access the email account you provided upon registration to the [facility].2.Look for an invitation email from [facility].3.Open the email and access the invitation link: Accept Invitation to [facility]4.Fill in the required azul to create your [...] you will allow to register on the [employer] Patient Portal for access to your information. You can also access the [employer] Patient Portal on the Survios leslie. Simply click on Health Records under [employer] and then click on the [employer] logo. HOW TO SAFELY DISPOSE OF PRESCRIPTION [...] Call your local pharmacy or go to http://[email or web address] Vino/[email or web address] to find one close to you.3.Make use of household items: Use cat litter or old coffee grounds to dispose medications if other options arenot available. Mix your drugs with these household products, seal them in an airtight container andthrow it into the garbage. Call [facility]: [phone] to be sure your drugs can be [...] aware that I should contact my doctor. Patient/Plant Operations Coordinator Signature: Date/Time: Relationship to Patient: Witness Name/Signature: Date/Time: [facility]02-24-2023 Note ORIGINAL EXAMINATION: ONE XRAY VIEW OF [...] Sign Date: 11/12/2022 10:38:00 PM Ordering Provider: [facility]02-24-2023 Note ORIGINAL EXAMINATION: ONE XRAY VIEW OF [...] Date: 11/12/2022 10:38:00 PM Ordering Provider: [facility]02-20-2023 Miscellaneous Notes* Telephone Encounter - Sin [...] Provider: SIN KIRBY APRN.CNP [facility] Hospital Discharge instructions Patient Education 10/19/2022 [...] Black, tarry stool Involuntary weight loss Weakness [id number] [employer]. [address] [place] [address]. All rights reserved. This information is not intended as a substitute for professional medical care. Always follow yourhealthcare professional's instructions. Follow Up Care 10/19/2022 11:04:23 With:KAYE BARTON MD Address: [address] [facility] [place] [address] [phone] When:2-4 days With:CJ RIVERA Address: [address] [place] [address] [phone] When:2-4 days [facility] 01-31-2023 Emergency department Discharge summary Discharge Instructions Thank you for allowing [facility] to assist you with your healthcare needs. [...] [address] [facility] [place] [address]- [phone] Follow Up with LORSON, CJ MANAGER PROFESSIONAL DEVELOPMENT-SPECIAL NEEDS TEACHER When Within 2-4 days Where: [address] [facility] [place] [address]- [phone] Allergies penicillin (Rash) Neurontin (Vomiting) morphine (Cramping) [...] Black, tarry stool Involuntary weight loss Weakness 2621-9212 [employer]. [address] [place] [address]. All rights reserved. This information is not intended as a substitute for professional medical care. Always follow yourhealthcare professional's instructions. Additional Information VACCINATE! IT SAVES LIVES! Members of the community who have not yet received the COVID-19 vaccine and would like to receive it can visit one of [facility] vaccine clinics. There are many vaccine clinic locations within the [facility]. For locations and available times, please visit www.[email or web address]. It is important to note that some COVID mobile vaccine clinics are held outdoors and may be canceled in rainy orstormy conditions. To learn more about pediatric vaccinations (ages 5-11), we invite you to visit the [facility] webpage. https://www.[facility].org/pages/9236-Ijqho-Qaazjzxqhcz-Lavuqgzwax-Dnlga-Hob stions.htmlTo learn more about the COVID-19 vaccine, we invite you to visit the [employer] website for a list of frequently asked questions. https://Visys.[employer]/assets/Vbldgopu-kig-Asuuylby/dhqjl-Ndqbtnm-Nafzhykfdx _Asked-Questions.pdf [facility] One[facility] Patient Portal Access Instructions: Stay connected with your healthcare team and access your personal medical information anytime with the [facility] Patient Portal. If you would like a full copy of your medical records please contact the [facility] Medical Records Department Tuesday through Tuesday between 8a.m. and 4:30p.m. Please follow the directions below to access the portal: 1.Access the email account you provided upon registration to the [facility].2.Look for an invitation email from [facility].3.Open the email and access the invitation link: Accept Invitation to [facility]4.Fill in the required azul to create your account. Sign into www.seanNovel Therapeutic Technologies with your username and password that you [...] you will allow to register on the [facility] Patient Portal for access to your information. You can also access the [facility] Patient Portal on the Petcube. Simply click on Health Records under [employer] and then click on the [employer] logo. HOW TO SAFELY DISPOSE OF PRESCRIPTION [...] Call your local pharmacy or go to http://KiwiTech.Easy Vino/0W9Yd2u to find one close to you.3.Make use of household items: Use cat litter or old coffee grounds to dispose medications if other options arenot available. Mix your drugs with these household products, seal them in an airtight container andthrow it into the garbage. Call [facility]: [phone] to be sure your drugs can be [...] aware that I should contact my doctor. Patient/Plant Operations Coordinator Signature: Date/Time: Relationship to Patient: Witness Name/Signature: Date/Time: [id number] Note ORIGINAL EXAMINATION: Supine and upright 2 [...] Sign Date: 10/19/2022 8:14:33 PM Ordering Provider: [facility]01-31-2023 Note ORIGINAL EXAMINATION: Supine and upright [...] Sign Date: 10/19/2022 8:14:33 PM Ordering Provider: [facility]01-31-2023 Note ORIGINAL EXAMINATION: ONE XRAY VIEW [...] Date: 10/19/2022 12:01:00 PM Ordering Provider: [facility]01-31-2023 Note ORIGINAL EXAMINATION: ONE XRAY [...] Sign Date: 10/19/2022 12:01:00 PM Ordering Provider: [facility]01-30-2023 Hospital Discharge instructions Patient Education 10/18/2022 [...] foods again, start with small amounts of ggjh-yj-nyiujs, low- fat foods. These include apple sauce, [...] increase stomach acid. Don't use aspirin or nwhb-bvn-urdkahd pain and fever medicines, if possible. This includes nonsteroidal anti-inflammatory drugs (NSAIDs). Lose excess weight. Finish eating at least 2 hours before you go to bed or lie down. Raise the head of your bed. 3252-7423 [employer]. [address] [place] [address], [place] [address]. All rights reserved. This information is not intended as a substitute for professional medical care. Always follow yourhealthcare professional's instructions. Follow Up Care 10/18/2022 12:03:53 With:CJ RIVERA Address: [place] [address] [phone] When:2-4 days [facility] 01-30-2023 Emergency department Discharge summary Discharge Instructions Thank you for allowing [facility] to assist you with your healthcare needs. [...] When Within 2-4 days Where: [place] [address] [phone] Allergies penicillin (Rash) Neurontin (Vomiting) morphine (Cramping) [...] foods again, start with small amounts of dhnb-zo-fijwlq, low- fat foods. These include apple sauce, [...] increase stomach acid. Don't use aspirin or glek-ylp-jvhtuvr pain and fever medicines, if possible. This includes nonsteroidal anti-inflammatory drugs (NSAIDs). Lose excess weight. Finish eating at least 2 hours before you go to bed or lie down. Raise the head of your bed. 2990-8091 [employer]. [address] [place] [address], [place] [address]. All rights reserved. This information is not intended as a substitute for professional medical care. Always follow yourhealthcare professional's instructions. Additional Information VACCINATE! IT SAVES LIVES! Members of the community who have not yet received the COVID-19 vaccine and would like to receive it can visit one of [facility] vaccine clinics. There are many vaccine clinic locations within the [facility]. For locations and available times, please visit www.[email or web address]. It is important to note that some COVID mobile vaccine clinics are held outdoors and may be canceled in rainy orstormy conditions. To learn more about pediatric vaccinations (ages 5-11), we invite you to visit the [facility] webpage. https://www.Thinkspeeds.org/pages/8736-Tgslh-Zhxrxmegpxv-Twsnqlvkln-Wktpl-Gfe stions.htmlTo learn more about the COVID-19 vaccine, we invite you to visit the [facility] website for a list of frequently asked questions. https://sean.org/assets/Wqgesrtd-bfg-Watgyczf/jgiin-Vzpbqhc-Tlxfqjdcgv _Asked-Questions.pdf [facility] Patient Portal Access Instructions: Stay connected with your healthcare team and access your personal medical information anytime with the [facility] Patient Portal. If you would like a full copy of your medical records please contact the [facility] Medical Records Department Tuesday through Tuesday between 8a.m. and 4:30p.m. Please follow the directions below to access the portal: 1.Access the email account you provided upon registration [facility] the [facility].2.Look for an invitation email from [facility].3.Open the email and access the invitation link: Accept Invitation to [facility]4.Fill in the required azul to create your account. Sign into www.EyeTechCare with your username and password that you [...] you will allow to register on the [employer] Patient Portal for access to your information. You can also access the [employer] Patient Portal on the Survios leslie. Simply click on Health Records under [employer] and then click on the [employer] logo. HOW TO SAFELY DISPOSE OF PRESCRIPTION [...] Call your local pharmacy or go to http://KiwiTech.Easy Vino/4W3Lg7w to find one close to you.3.Make use of household items: Use cat litter or old coffee grounds to dispose medications if other options arenot available. Mix your drugs with these household products, seal them in an airtight container andthrow it into the garbage. Call [facility]: [phone] to be sure your drugs can be [...] aware that I should contact my doctor. Patient/Plant Operations Coordinator Signature: Date/Time: Relationship to Patient: Witness Name/Signature: Date/Time: [facility]01-30-2023 Emergency department Discharge summary Discharge Instructions Thank you for allowing [facility] to assist you with your healthcare needs. [...] 2-4 days Where: [address] [facility] [place] [address] [phone] Allergies penicillin (Rash) Neurontin (Vomiting) morphine (Cramping) [...] foods again, start with small amounts of nist-xs-vfqrpd, low- fat foods. These include apple sauce, [...] increase stomach acid. Don't use aspirin or dpze-rmz-riplnkk pain and fever medicines, if possible. This includes nonsteroidal anti-inflammatory drugs (NSAIDs). Lose excess weight. Finish eating at least 2 hours before you go to bed or lie down. Raise the head of your bed. 6069-5822 [employer] [facility]. [address] [place] [address]. All rights reserved. This information is not intended as a substitute for professional medical care. Always follow yourhealthcare professional's instructions. Additional Information VACCINATE! IT SAVES LIVES! Members of the community who have not yet received the COVID-19 vaccine and would like to receive it can visit one of [facility] vaccine clinics. There are many vaccine clinic locations within the [facility]. For locations and available times, please visit www.[email or web address]. It is important to note that some COVID mobile vaccine clinics are held outdoors and may be canceled in rainy orstormy conditions. To learn more about pediatric vaccinations (ages 5-11), we invite you to visit the [facility] webpage. https://www.[facility].org/pages/0530-Qbdsx-Yelykcwcguk-Haxpvnewyd-Dohlw-Svm stions.htmlTo learn more about the COVID-19 vaccine, we invite you to visit the [facility] website for a list of frequently asked questions. https://[place].org/assets/Zikpfenw-qlw-Vqhdxcbs/elpvz-Jgmczlz-Gyaukbccpa _Asked-Questions.pdf [facility] Patient Portal Access Instructions: Stay connected with your healthcare team and access your personal medical information anytime with the [facility] Patient Portal. If you would like a full copy of your medical records please contact the [facility] Medical Records Department Tuesday through Tuesday between 8a.m. and 4:30p.m. Please follow the directions below to access the portal: 1.Access the email account you provided upon registration to the [facility].2.Look for an invitation email from [facility].3.Open the email and access the invitation link: Accept Invitation to [facility]4.Fill in the required azul to create your [...] you will allow to register on the [facility] Patient Portal for access to your information. You can also access the [facility] Patient Portal on the Petcube. Simply click on Health Records under [employer] and then click on the [facility] logo. [...] Call your local pharmacy or go to http://KiwiTech.Easy Vino/7F1Hz2a to find one close to you.3.Make use of household items: Use cat litter or old coffee grounds to dispose medications if other options arenot available. Mix your drugs with these household products, seal them in an airtight container andthrow it into the garbage. Call [facility]: [phone] to be sure your drugs can be [...] aware that I should contact my doctor. Patient/Plant Operations Coordinator Signature: Date/Time: Relationship to Patient: Witness Name/Signature: Date/Time: [facility]01-30-2023 Note ORIGINAL EXAMINATION: CT OF THE ABDOMEN [...] Sign Date: 10/18/2022 6:53:21 PM Ordering Provider: [facility]01-30-2023 Note ORIGINAL EXAMINATION: CT OF [...] Sign Date: 10/18/2022 6:53:21 PM Ordering Provider: [facility]01-22-2023 Miscellaneous Notes* Telephone Encounter - Alaina Tomlin [...] Provider: ALAINA TOMLIN APRN.CNP documented [facility] Miscellaneous Notes* Telephone Encounter - Alaina Tomlin APRN.CNP - 10/10/2022 10:50 PM EST The following approved medication requests have been transmitted electronically. Requested Prescriptions Signed Prescriptions Disp Refills lacosamide (VIMPAT) 100 mg tab 270 tablet 1 Si tab in am and 2 tabs in pm Authorizing Provider: ALAINA TOMLIN APRN.CNP documented in [facility]12-[facility]-2022 Miscellaneous Notes* Telephone Encounter - Alaina [...] Provider: ALAINA TOMLIN APRN.CNP documented in [facility]11-10-2022 Miscellaneous Notes* Telephone Encounter - Alaina [...] Relationship to patient: self Phone # : [phone] (home) Reason for call: Patient has trouble falling asleep and staying asleep. Sometimes she will not be able to sleep for 3 days. The lack of sleep can cause agitation. She has tried Trazadone and Vistaril. Please advise. Patient of Dr. Aldrich documented in this encounterM[facility]11-08-2022 Hospital Discharge instructions Patient Education 07/27/2022 [...] or water and you are getting dehydrated [phone] [employer] [facility]. [address] [place] [address], [place] [address]. All rights reserved. This information is not intended as a substitute for professional medical care. Always follow yourhealthcare professional's instructions. Follow Up Care 07/27/2022 09:12:07 With:Follow-up with your test engine evaluator Address:Unknown When:2-4 days With:CJ RIVERA Address: [address] [place] [address] [phone] When:2-4 days [facility] 11-08-2022 Emergency department Discharge summary Discharge Instructions Thank you for allowing [facility] to assist you with your healthcare needs. The following is importantdischarge information regarding your hospital visit. Diagnosis from Today's Visit Abdominal pain - cause unknown n/v What to Do Next Instructions from Your Care Team No qualifying data available. Post Acute Orders No qualifying data available. You Need to Schedule the Following Appointments Follow Up with Follow-up with your test engine evaluator When Within 2-4 days Follow Up with CJ RIEVRA When Within 2-4 days Where: [address] [address]- [phone] Allergies penicillin (Rash) Neurontin (Vomiting) morphine (Cramping) [...] or water and you are getting dehydrated 8625-6273 [employer] [facility]. [address] [place] [address]. All rights reserved. This information is not intended as a substitute for professional medical care. Always follow yourhealthcare professional's instructions. Additional Information VACCINATE! IT SAVES LIVES! Members of the community who have not yet received the COVID-19 vaccine and would like to receive it can visit one of [facility] vaccine clinics. There are many vaccine clinic locations within the [facility]. For locations and available times, please visit www.[email or web address]. It is important to note that some COVID mobile vaccine clinics are held outdoors and may be canceled in rainy orstormy conditions. To learn more about pediatric vaccinations (ages 5-11), we invite you to visit the [facility] webpage. https://www.[facility].org/pages/6652-Zwelu-Izknawkqxmy-Kiiupfkhrh-Dmhkw-Azc stions.htmlTo learn more about the COVID-19 vaccine, we invite you to visit the [employer] website for a list of frequently asked questions. https://Visys.[employer]/assets/Krjsaslu-xzp-Vjakslgb/zcjck-Exjdynd-Mnbgevndlc _Asked-Questions.pdf [facility] One[facility] Patient Portal Access Instructions: Stay connected with your healthcare team and access your personal medical information anytime with the [facility] Patient Portal. If you would like a full copy of your medical records please contact the [facility] Medical Records Department Tuesday through Tuesday between 8a.m. and 4:30p.m. Please follow the directions below to access the portal: 1.Access the email account you provided upon registration to the [facility].2.Look for an invitation email from [facility].3.Open the email and access the invitation link: Accept Invitation to [facility]4.Fill in the required azul to create your account. Sign into www.seanNovel Therapeutic Technologies with your username and password that you [...] you will allow to register on the [facility] Patient Portal for access to your information. You can also access the [facility] Patient Portal on the Petcube. Simply click on Health Records under [employer] and then click on the [employer] logo. HOW TO SAFELY DISPOSE OF PRESCRIPTION [...] Call your local pharmacy or go to http://KiwiTech.Easy Vino/8M9Zt0f to find one close to you.3.Make use of household items: Use cat litter or old coffee grounds to dispose medications if other options arenot available. Mix your drugs with these household products, seal them in an airtight container andthrow it into the garbage. Call [facility]: [phone] to be sure your drugs can be [...] aware that I should contact my doctor. Patient/Plant Operations Coordinator Signature: Date/Time: Relationship to Patient: Witness Name/Signature: Date/Time: [id number] Note ORIGINAL EXAMINATION: CT OF THE ABDOMEN [...] by: Andreea Vasquez MD Preliminary Report By: Adnreea Vasquez MD Electronically signed By Andreea Vasquez MD Dictated Date: 07/27/2022 12:32:02 PM Prelim Date: 07/27/2022 12:34:57 PM Sign Date: 07/27/2022 12:34:57 PM Ordering Provider: [facility]11-08-2022 Note ORIGINAL EXAMINATION: CT OF THE ABDOMEN [...] Date: 07/27/2022 12:34:57 PM Ordering Provider: [facility]10-04-2022 Hospital Discharge instructions Patient Education 06/22/2022 10:23:01 [...] including vitamins, herbs, eye drops, creams, and gjoi-xow-iprfrsx medicines. Any medical conditions you have. Any [...] 10/08/2005 Document Revised: 04/26/2018 Document Reviewed: 04/26/2018 [employer] Patient Education 2020 [employer]. Follow Up Care 06/17/2022 09:41:20 With:KAYE BARTON MD Address: [address] [facility], [place] [address]- When:Within 1 Day(s) Comments:Please call the office to schedule a follow up appointment With:CJ RIVERA Address: [address] [facility] [place] [address]- When:1-2 days Comments:Please call the office to schedule a follow up appointment [facility] 10-04-2022 Note Discharge Instructions Thank you for allowing [facility] to assist you with your healthcare needs. [...] Appointments Appointment Type [facility]/29/2022 01:30 PM EDT CJ RIVERA [facility] Follow Up Appointments Follow Up with KAYE BARTON MD When In 1 day Why: Please call the office to schedule a follow up appointment Where: [address] [facility] [place] [address]- Follow Up with CJ RIVERA When Within 1-2 days Why: Please call the office to schedule a follow up appointment Where: [address] [facility] [place] [address]- The Following Activity and Diet Have Been [...] including vitamins, herbs, eye drops, creams, and bhwx-dgg-puzndkt medicines. Any medical conditions you have. Any [...] 10/08/2005 Document Revised: 04/26/2018 Document Reviewed: 04/26/2018 [employer] Patient Education 2020 [employer] Additional Information VACCINATE! IT SAVES LIVES! Members of the community who have not yet received the COVID-19 vaccine and would like to receive it can visit one of [facility] vaccine clinics. There are many vaccine clinic locations within the [facility]. For locations and available times, please visit https://[email or web address]/. It is important to note that some COVID mobile vaccine clinics are held outdoors and may be canceled in rainy or stormy conditions. To learn more about pediatric vaccinations (ages 5-11), we invite you to visit the [facility] webpage. https://www.[facility].org/pages/4216-Nxgqr-Fwkrlqgezoc-Pcejbjtwkd-Cvbju-Yza stions.htmlTo learn more about the COVID-19 vaccine, we invite you to visit the [facility] website for a list of frequently asked questions. https://[place].[facility]/assets/Oitcsumq-out-Unnrkmoh/trbhw-Smaexxx-Byblrhsrrx _Asked-Questions.pdf [facility] besomebody.Chart Patient Portal Access Instructions: Stay connected with your healthcare team and access your personal medical information anytime with the [facility] besomebody.Chart Patient Portal.If you would like a full copy of your medical records, please contact the [facility] Medical Records Department, Tuesday through Tuesday between 8a.m. and 4:30p.m. Please follow the directions below to access the portal: 1.Access the email account you provided upon registration to the [facility].2.Look for an invitation email from [facility].3.Open the email and access the invitation link: Accept Invitation to [employer]4.Fill in the required azul to create your account. Sign into www.EyeTechCare with your username and password that you [...] you will allow to register on the [employer] Patient Portal for access to your information. You can also access the [employer] Patient Portal on the Petcube. Simply click on Health Records under [employer] and then click on the [employer] logo. HOW TO SAFELY DISPOSE OF PRESCRIPTION [...] Call your local pharmacy or go to http://KiwiTech.Easy Vino/4O9Zg6f to find one close to you.3.Make use of household items: Use cat litter or old coffee grounds to dispose medications if other options arenot available. Mix your drugs with these household products, seal them in an airtight container andthrow it into the garbage. Call [facility]: [phone] to be sure your drugs can be [...] aware that I should contact my doctor. Patient/Plant Operations Coordinator Signature: Date/Time: Relationship to Patient: Witness Name/Signature: Date/Time: [id number] Discharge summary Date of Service 06/22/2022 Discharge [...] and chronic constipation on Linzess [facility] with chief complaint of [...] Result Date: June 20, 2022 Verified By: KAWME MAO MD CLINICAL STATEMENT: IMPRESSION: Mildly prominent [...] In 1 day Where: [address] [facility] [place] [address] [phone] Follow Up with CJ RIVERA When Within 1-2 days Why: Please call the office to schedule a follow up appointment Where: [address] [facility] [place] [address]- Follow Up Appointments No qualifying data available. [...] KEHINDE NUÑEZ MD on 06/22/2022 09:40 PM [facility] Note Date of Service 06/21/2022 Chief Complaint [...] KEHINDE NUÑEZ MD on 06/21/2022 12:25 PM [facility]1838 Note Chief complaint Transition plan. Transitional action points Current plan: To be determined no new orders placed today This is a 46-year-old female admitted for abdominal pain with rectal bleeding ongoing abdominal pain CT scan did show duodenitis as well as ileus doing better today at this point in time the patient is now her third hospitalization recently discharged from [facility] on 25 May patient with underlying [...] Rate18(JUN 20 22:56)18(JUN 20 11:02)20(JUN 20 07:17) RJP187(JUN 20 22:56)L 87(JUN 20 14:21)118(JUN 20 16:01) [...] Domestic Concerns: Denies. Living situation: Home/Independent. 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 Lives In: 1st floor bedroom, [...] presence of Paul Fitzpatrick. I Paul Fitzpatrick OUTDOOR LANDSCAPE ARCHITECT, personally performed the services described in this documentation, as described by Paula VILLANUEVA in my presence and it is both accurate and complete. This document transcribed using voice recognition software may contain typographical errors. Digitally Signed by PAUL FITZPATRICK APRN-SPECIAL NEEDS TEACHER on 06/22/2022 08:16 AM [facility]jwhrgjl93-[facility]-1490 Note Date of Service June 20, 2022 [...] JUWAN BELTRAN MD on 06/20/2022 06:07 PM [facility]Ehzclnkq18-24-8689 Note ORIGINAL EXAMINATION: THREE XRAY VIEWS OF [...] Sign Date: 06/20/2022 1:13:31 PM Ordering Provider: [facility]10-02-2022 Note ORIGINAL EXAMINATION: THREE XRAY VIEWS OF [...] Sign Date: 06/20/2022 1:13:31 PM Ordering Provider: [facility]10-02-2022 Note ORIGINAL EXAMINATION: RIGHT UPPER [...] by: Kwame Mao MD Preliminary Report By: Kwmae Mao MD Electronically signed By Kwame Mao MD Dictated Date: 06/20/2022 6:52:11 AM Prelim Date: 06/20/2022 6:55:12 AM Sign Date: 06/20/2022 6:55:12 AM Ordering Provider: [facility]10-02-2022 Note ORIGINAL EXAMINATION: RIGHT UPPER QUADRANT [...] Sign Date: 06/20/2022 6:55:12 AM Ordering Provider: [facility]10-01-2022 Note Date of Service June 19, 2022 [...] JUWAN BELTRAN MD on 06/19/2022 04:36 PM [facility]Qdkuakxg46-11-3479 Note ORIGINAL EXAMINATION: THREE XRAY VIEWS OF THE ZISCDXR97/1/2022 12:40 pm ABDOMEN, 3 VIEWS COMPARISON: 06/17/2022 [...] Sign Date: 06/19/2022 12:58:45 PM Ordering Provider: [facility]10-01-2022 Note ORIGINAL EXAMINATION: THREE XRAY VIEWS OF THE GYUYMYQ82/1/2022 12:40 pm ABDOMEN, 3 VIEWS COMPARISON: 06/17/2022 [...] Sign Date: 06/19/2022 12:58:45 PM Ordering Provider: [facility]10-01-2022 Gastroenterology Progress note Date of Service [...] follow-up with her primary care and establish test engine evaluator Rectal bleed As per above Elective endoscopy to be arranged by primary care and established test engine evaluator Digitally Signed by MI MAYS on 06/19/2022 10:51 AM Digitally Signed by KAYE BARTON MD on 06/20/2022 11:47 AM [facility]erzggyz31-55-7758 Nurse Progress note Pt is refusing IV fluids at this time. Extensive education given on importance of IV fluid therapy and still refuses. Digitally Signed by Candace Steele RN on 06/19/2022 02:48 AM [facility]Djuomzia72-11-7895 Note Date of Service June 18, 2022 [...] JUWAN BELTRAN MD on 06/18/2022 08:28 PM [facility]Xmgtfzqr26-12-6956 Gastroenterology Consult note Date of Service 06/18/2022 [...] Domestic Concerns: Denies. Living situation: Home/Independent. 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 Lives In: 1st floor [...] by MI MAYS on 06/18/2022 09:38 AM [facility]Deivzqkz31-26-0065 Gastroenterology Consult note Date of Service 06/18/2022 [...] Domestic Concerns: Denies. Living situation: Home/Independent. 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 Lives In: 1st floor [...] by MI MAYS on 06/18/2022 09:38 AM [facility]Bzvfrpyn75-01-7885 Note Date 06/18/2022 Chief complaint Transition plan. [...] third hospitalization, recently discharged on 05/25 from [facility]. Evelyn ent lives with significant other, [...] Mood cooperative, alert and oriented Vital signs Ureitqzncyz39.5 (00:56) Systolic Blood Thrfpfhv434 (00:56) Diastolic Blood Pqixxjri36 (00:56) Pulse85 (00:56) SpO2No result Respiratory Rate18 [...] Domestic Concerns: Denies. Living situation: Home/Independent. 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 Lives In: 1st floor bedroom, [...] by PRIYANKA ORR on 06/18/2022 06:02 PM [facility] HospitalLetnkrph53-67-0667 History and physical note Date of Service [...] experiencing on 05/24 whenshe was admitted to [place] for small bowel obstruction. Patient indicated that [...] that this was [facility] up at a [facility]. Patient denies any recurrent GI [...] Domestic Concerns: Denies. Living situation: Home/Independent. 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 Lives In: 1st floor [...] JUWAN BELTRAN MD on 06/17/2022 06:29 PM [facility]Swuvuxda09-69-9076 Evaluation + Plan noteExtracted from: Title:History and [...] Appointment Date:06/29/2022 01:30:00 PM Scheduled Provider:CJ RIVERA Location:[facility] Appointment Type:Telehealth Future Scheduled Tests Laboratory* Basic Metabolic Panel 06/30/21 * Calcium Level Ionized 07/06/21 * Magnesium Level 07/06/21 * Phosphorus Level 07/06/21 * Lipid Profile 06/09/22 * Lipid Profile 06/23/21 * Prealbumin 07/06/21 * PTH, Intact 07/06/21 * Vitamin D Level 06/09/22 * Complete Metabolic Panel 06/09/22 * Complete Metabolic Panel 07/06/21 * N-Terminal proBNP 08/20/21 [facility] 09-29-2022 Hospital Discharge instructions Patient Education [...] or water and you are getting dehydrated 7925-9421 [facility]. [address] [place] [address], [place] [address]. All rights reserved. This information is not intended as a substitute for professional medical care. Always follow yourhealthcare professional's instructions. Follow Up Care 06/17/2022 04:00:02 With:CJ RIVERA Address: [place] [address]- [phone] When:2-4 days [facility] 09-29-2022 Emergency department Discharge summary Discharge Instructions Thank you for allowing [facility] to assist you with your healthcare needs. The following is importantdischarge information regarding your hospital visit. Diagnosis from Today's Visit Abdominal pain What to Do Next Instructions from Your Care Team No qualifying data available. Post Acute Orders No qualifying data available. You Need to Schedule the Following Appointments Follow Up with CJ RIVERA When Within 2-4 days Where: [place] [address]- [phone] Allergies penicillin (Rash) Neurontin (Vomiting) morphine (Cramping) [...] or water and you are getting dehydrated 0302-8762 [facility]. [address] [place] [address]. All rights reserved. This information is not intended as a substitute for professional medical care. Always follow yourhealthcare professional's instructions. Additional Information VACCINATE! IT SAVES LIVES! Members of the community who have not yet received the COVID-19 vaccine and would like to receive it can visit one of [facility] vaccine clinics. There are many vaccine clinic locations within the [facility]. For locations and available times, please visit [email or web address]. It is important to note that some COVID mobile vaccine clinics are held outdoors and may be canceled in rainy orstormy conditions. To learn more about pediatric vaccinations (ages 5-11), we invite you to visit the [facility] webpage. https://www.[facility].org/pages/4903-Gzclq-Sxhoocdbczi-Giscxyygop-Goyif-Jfa stions.htmlTo learn more about the COVID-19 vaccine, we invite you to visit the [employer] website for a list of frequently asked questions. [email or web address]/cuwfg-Fzsbouk-Ogdhswlrke _Asked-Questions.pdf [facility] Patient Portal Access Instructions: Stay connected with your healthcare team and access your personal medical information anytime with the [facility] Patient Portal. If you would like a full copy of your medical records please contact the [facility] Medical Records Department Tuesday through Tuesday between 8a.m. and 4:30p.m. Please follow the directions below to access the portal: 1.Access the email account you provided upon registration to the [facility].2.Look for an invitation email from [facility].3.Open the email and access the invitation link: Accept Invitation to [facility]4.Fill in the required azul to create your account. Sign into [email or web address].[email or web address] [employer] with your username and password that you [...] you will allow to register on the [facility] Patient Portal for access to your information. You can also access the [facility] Patient Portal on the Surv[employer] leslie. Simply click on Health Records under [employer] and then click on the Sean logo. [...] Call your local pharmacy or go to http://bit.Easy Vino/8G5Mq6t to find one close to you.3.Make use of household items: Use cat litter or old coffee grounds to dispose medications if other options arenot available. Mix your drugs with these household products, seal them in an airtight container andthrow it into the garbage. Call [facility]: [phone] to be sure your drugs can be [...] aware that I should contact my doctor. Patient/Plant Operations Coordinator Signature: Date/Time: Relationship to Patient: Witness Name/Signature: Date/Time: [facility]09-29-2022 Note ORIGINAL EXAMINATION: CT OF THE ABDOMEN [...] 06/17/2022 6:53:48 AM Ordering Provider: THANG HUNTER [facility]09-29-2022 Note ORIGINAL EXAMINATION: CT OF THE ABDOMEN [...] Date: 06/17/2022 6:53:48 AM Ordering [facility] Miscellaneous Notes* Telephone Encounter - Sarah Osorio [...] Provider: SARAH OSORIO PA-C [facility] Evaluation + Plan note Future Scheduled Tests Laboratory* Lipid Profile 06/09/22 * Vitamin D Level 06/09/22 * Complete Metabolic Panel 06/09/22 [facility] 08-18-2022 Miscellaneous Notes* Telephone Encounter - Sin [...] Provider: SIN KIRBY APRN.CNP documented in this encounterM[facility]07-26-2022 Miscellaneous Notes* Telephone Encounter - Alaina [...] Provider: ALAINA TOMLIN APRN.CNP documented in this encounterM[facility]07-[facility]22 Hospital Discharge instructions Patient Education 04/12/2022 [...] are taking other medicines. You may use tuse-div-biootsp medicine as directed on the bottle to [...] Numbness in the groin or genital area 2792-2747 [facility]. [address] [place] [address]. All rights reserved. This information is not intended as a substitute for professional medical care. Always follow yourhealthcare professional's instructions. Follow Up Care 04/12/2022 10:48:06 [facility] Address: [address] [facility] [place] [address]- [phone] When:2-4 days [facility] 07-25-2022 Note Discharge Instructions Thank you for allowing [facility] to assist you with your healthcare needs. [...] 2-4 days Where: [address] [facility] [place] [address]- [phone] Allergies penicillin (Rash) Neurontin (Vomiting) morphine (Cramping) [...] are taking other medicines. You may use qpgm-saz-vavlfie medicine as directed on the bottle to [...] Numbness in the groin or genital area 6851-6814 [facility]. [address] [place] [address], [place] [address]. All rights reserved. This information is not intended as a substitute for professional medical care. Always follow yourhealthcare professional's instructions. Additional Information VACCINATE! IT SAVES LIVES! Members of the community who have not yet received the COVID-19 vaccine and would like to receive it can visit one of [facility] vaccine clinics. There are many vaccine clinic locations within the [facility]. For locations and available times, please visit [email or web address]. It is important to note that some COVID mobile vaccine clinics are held outdoors and may be canceled in rainy orstormy conditions. To learn more about pediatric vaccinations (ages 5-11), we invite you to visit the [facility] webpage. https://www.[facility].org/pages/4705-Elbtw-Sucfqyaddrt-Qssyxrfbcz-Szjjs-Uhu stions.htmlTo learn more about the COVID-19 vaccine, we invite you to visit the [employer] website for a list of frequently asked questions. [email or web address]://[email or web address]/[email or web address]-zbj-Ouzfsxng/hnrql-Zvrdfjt-Adorolcokl _Asked-Questions.pdf [facility] Patient Portal Access Instructions: Stay connected with your healthcare team and access your personal medical information anytime with the [facility] Patient Portal. If you would like a full copy of your medical records please contact the [facility] Medical Records Department Tuesday through Tuesday between 8a.m. and 4:30p.m. Please follow the directions below to access the portal: 1.Access the email account you provided upon registration to the hospital.2.Look for an invitation email from [facility].3.Open the email and access the invitation link: Accept Invitation to [facility]4.Fill in the required azul to create your account. Sign into www.[employer] with your username and password that you [...] you will allow to register on the [facility] Patient Portal for access to your information. You can also access the [facility] Patient Portal on the Survios leslie. Simply click on Health Records under [employer] and then click on the Sean logo. [...] Call your local pharmacy or go to http://KiwiTech.Easy Vino/6Q5Ux2s to find one close to you.3.Make use of household items: Use cat litter or old coffee grounds to dispose medications if other options arenot available. Mix your drugs with these household products, seal them in an airtight container andthrow it into the garbage. Call [facility]: [phone] to be sure your drugs can be [...] aware that I should contact my doctor. Patient/Plant Operations Coordinator Signature: Date/Time: Relationship to Patient: Witness Name/Signature: Date/Time: [facility]07-25-2022 Nurse Progress note 2 unsuccessful attempts to straight stick for BMP using 23g butterfly, lab called to attempt Digitally Signed by Lexis Talley RN on 04/12/2022 11:51 AM [facility]05-27-2022 Hospital Discharge instructions Patient Education 02/11/2022 22:54:36 [...] Swelling, pain or redness in one leg 4453-4854 [facility]. [address] [place] [address]. All rights reserved. This information is not intended as a substitute for professional medical care. Always follow yourhealthcare professional's instructions. Follow Up Care 02/11/2022 18:24:39 With:[facility] Address: [address] [facility] [place] [address]- [phone] When:2-4 days [facility] 05-17-2022 Hospital Discharge instructions Patient Education 02/02/2022 [...] foods again, start with small amounts of xdzt-pn-qxatbn, low- fat foods. These include apple sauce, [...] increase stomach acid. Don't use aspirin or zdyq-nst-xjaktoq pain and fever medicines, if possible. This includes nonsteroidal anti-inflammatory drugs (NSAIDs). Lose excess weight. Finish eating at least 2 hours before you go to bed or lie down. Raise the head of your bed. 4629-7996 [facility]. [address] [place] [address]. All rights reserved. This information is not intended as a substitute for professional medical care. Always follow yourhealthcare professional's instructions. Follow Up Care 02/02/2022 18:33:19 With:CJ RIVERA APRN-HAMLET Address: [address] [facility] [address] [facility] [place] [address]- [phone] When:2-4 days [facility] 04-12-2022 Miscellaneous Notes* Telephone Encounter - Sin [...] Provider: SIN KIRBY APRN.CNP documented in this encounterM[facility]02-[facility]22 Hospital Discharge instructions Patient Education 10/28/2021 [...] or as directed by your healthcare provider 6469-3197 [facility]. [address] [place] [address]. All rights reserved. This information is not [...] for diarrhea, vomiting, or a high fever. 2752-4226 [facility]. [address] [place] [address], [place] [address]. All rights reserved. This information is not intended as a substitute for professional medical care. Always follow yourhealthcare professional's instructions. Follow Up Care 10/28/2021 08:29:25 With:CJ RIVERA Address: [address] [facility] [place] [address]- [phone] Business (1) When:Within 1 Day(s) Comments:Keep your appointment as scheduled for tomorrow. [facility] 01-05-2022 Evaluation + Plan noteExtracted from: Title:History and Physical Author:JESSICA HARPER MANAGER PROFESSIONAL DEVELOPMENT-SPECIAL NEEDS TEACHER Date:09/23/21 1. Nausea with vomiting 2. Hypokalemia [...] antiemetics. I have reached out to her clinic specialist, Dr. Bae. Am awaiting a call [...] Date:09/30/2021 02:15:00 PM Scheduled Provider:CHAYITO DIAZ MD Location:[facility] Appointment Type:[facility] Follow-Up Appointment Date:10/21/2021 03:00:00 PM Scheduled Provider:CHAYITO DIAZ MD Location:[facility] Appointment Type:[facility] Diagnostic Tests Pending * Urine Culture 09/23/21 Future Scheduled Tests Laboratory* Basic Metabolic Panel 06/30/21 * Calcium Level Ionized 07/06/21 * Magnesium Level 07/06/21 * Phosphorus Level 07/06/21 * N-Terminal proBNP 08/20/21 * Lipid Profile 06/23/21 * Prealbumin 07/06/21 * PTH, Intact 07/06/21 * Complete Metabolic Panel 07/06/21 Radiology* MA Mammo Screening Bilateral w/ Awais 02/18/21 [facility] 01-04-2022 Hospital Discharge instructions Patient Education 09/22/2021 [...] or as directed by your healthcare provider 1722-4282 [facility]. [address] [place] [address], [place] [address]. All rights reserved. This information is not intended as a substitute for professional medical care. Always follow yourhealthcare professional's instructions. Follow Up Care 09/22/2021 16:56:34 With:CHAYITO DIAZ MD Address: [address] [place] [address] [place] [address]- When:09/30/2021 14:15:00 Comments:This is your post-hospital follow-up appointment. [facility] 12-28-2021 NoteHNO ID: [id number] Author: Justin Montgomery APRN.HAMLET Service: ? Author [...] route to S51 for assistance. Justin Montgomery APRN.SPECIAL NEEDS TEACHER 09/15/21 5:45 [facility]12-22-2021 Hospital Discharge instructions Patient Education 09/09/2021 14:19:04 [...] foods again, start with small amounts of lwnf-jc-dohwfs, low- fat foods. These include apple sauce, [...] increase stomach acid. Don't use aspirin or pbmt-xcc-qebkdgt pain and fever medicines, if possible. This includes nonsteroidal anti-inflammatory drugs (NSAIDs). Lose excess weight. Finish eating at least 2 hours before you go to bed or lie down. Raise the head of your bed. 8841-0287 [facility]. [address] [place] [address], [place] [address]. All rights reserved. This information is not intended as a substitute for professional medical care. Always follow yourhealthcare professional's instructions. Follow Up Care 09/09/2021 12:08:05 With:[facility] Address: [phone] When:2-4 days [facility] 12-21-2021 NoteHNO ID: [id number] Author: Peri Segovia PSYD Service: ? Author Type: Psychologist Type: Progress Notes Filed: 09/08/2021 5:40 PM Note Text: [facility] BE[facility]IOR[facility] SLEEP [facility]ICINE CBT-Initiate Virtual Group September 08, 2021 Time: 3-4:30pm [id number]: Virtual Group Psychotherapy Providers: Juliette Leon and [...] remaining sessions of CBT-I Peri Segovia PSYD PsychologistPhaneuf HospitalUyehbmtz98-23-8938 Hospital Discharge instructions Patient Education 08/06/2021 17:09:59 [...] red color) Loss of consciousness Severe headache 1554-2674 [facility]. [address] [place] [address]. All rights reserved. This information is not intended as a substitute for professional medical care. Always follow yourhealthcare professional's instructions. Follow Up Care 08/06/2021 14:30:26 With:CJ RIVERA Address:Unknown When:2-4 days [facility] 11-12-2021 Hospital Discharge instructions Patient Education 07/31/2021 [...] Dry your ears with a towel or chairman and ceo after getting wet. Also, use ear plugs [...] as directed by your healthcare provider Seizure 4054-7031 [facility]. [address] [place] [address]. All rights reserved. This information is not intended as a substitute for professional medical care. Always follow yourhealthcare professional's instructions. Follow Up Care 07/31/2021 10:26:13 With:CJ RIVERASPECIAL NEEDS TEACHER Address: [phone] When:2-4 days [facility] 11-03-2021 NoteHNO ID: [id number] Author: Thea Leon PSYD Service: ? Author Type: Resident Type: Progress Notes Filed: 07/22/2021 1:55 PM Note Text: Summary: BSM Evaluation Behavioral Sleep Medicine Consult Psychological Evaluation [address] Patient was seen for an initial evaluation. All information is from patient report and review of medical record except when noted. This evaluation is NOT intended for forensic, disability or child custody purposes. Due to the [facility] and the need for ongoing mental health services, the following visit was completed virtually to reduce the risk of COVID-19 exposure. Consent related to virtual visits was provided verbally after information was sent via Bellmetrichart or read to patient if MyChart not available. Location: [address] [place] [address] Miss Rutledge has not been previously evaluated and treated by Behavioral Sleep Medicine at the [facility]. Dorothea Rutledge is a 45 year old year old female who presents for a BSM evaluation for hypnic jerks, referred by F Physician/Provider and Department- Sin Kirby APRN. SPECIAL NEEDS TEACHER. PMH: ACTIVE PROBLEM LIST Focal Epilepsy (Hcc) [...] of Kidney Insomnia Ischemic Colitis (Hcc) Hypertension Alf Current Use of Anticoagulant Therapy Palpitations Pneumonia [...] around 6pm-7pm, minimal T (more content not included)...[facility] 07-02-[facility] Hospital Discharge instructions Patient Education [...] the arms, legs, hands, or feet Seizures 3601-8939 [facility]. [address] [place] [address]. All rights reserved. This information is not [...] are taking other medicines. You may use gcym-bds-uqqadbp medicines such as acetaminophen, ibuprofen, or naprosyn [...] Chills Burning or pain when passing urine 0860-8273 [facility]. [address] [place] [address], [place] [address]. All rights reserved. This information is not intended as a substitute for professional medical care. Always follow yourhealthcare professional's instructions. Follow Up Care 07/02/2021 09:42:29 With:CJ LORKELLIE Address: [address] [place] [address]- Business (1) When:2-4 days Comments:Return to ED if symptoms worsen [facility] 08-11-2021 NoteHNO ID: [id number] Author: Alaina Tomlin APRN.SPECIAL NEEDS TEACHER Service: ? Author Type: Nurse Practitioner Type: Progress Notes Filed: 04/29/2021 1:25 PM Note Text: Please route this encounter to the EMU Scheduling Pool ( P EMU ) or PMU Scheduling Pool ( P PMU ) through LOS AND Follow up PHASE 1.0 AND 1.5 ORDER SYNOPSIS Patient: Dorothea Rutledge ([id number]) Best contact number: [phone] Insurance: Payor: [employer] MEDICARE / Plan: HU[employer]NA GOLD PLUS / Product Type: HMO / ----- Scheduling Team: Please call for adult patients: Alaina Flores ([phone]) or Mimi Jean [phone] Please call for pediatric patients: Alaina Flores ([phone]) or Mimi Jean [phone] ----- 04/29/2021 Admission Type EMU Adult Number of Days requested 5 - 3-5 Location [place] Admit Priority HEIDY PURPOSE 04/29/2021 Patient Being [...] for IVELISSE, please schedule VNS off/on office [facility] Future App[facility]ments Appointment Date:07/09/2021 03:30:00 PM Scheduled Provider:CHRYSTAL GAVIRIA Location:[facility] Appointment Type: OV Appointment Date:08/27/2021 01:30:00 PM Scheduled Provider:CJ RIVERA Location:[facility] Appointment Type:PC OV Future Scheduled Tests Laboratory* Basic Metabolic Panel 06/30/21 * N-Terminal proBNP 08/20/21 * Lipid Profile 06/23/21 Radiology* NM Myocardial Spect Rest/Stress 07/23/20 * MA Mammo Screening Bilateral w/ Awais 02/18/21 [facility] Evaluation + Plan note Future Appointments Appointment Date:08/27/2021 01:30:00 PM Scheduled Provider:CJ RIVERA Location:[facility] Appointment Type:PC OV Future Scheduled Tests Laboratory* Basic Metabolic Panel 06/30/21 * Calcium Level Ionized 07/06/21 * Magnesium Level 07/06/21 * Phosphorus Level 07/06/21 * N-Terminal proBNP 08/20/21 * Lipid Profile 06/23/21 * Prealbumin 07/06/21 * PTH, Intact 07/06/21 * Complete Metabolic Panel 07/06/21 Radiology* MA Mammo Screening Bilateral w/ Awais 02/18/21 [facility] Evaluation + Plan note Future Appointments Appointment Date:09/23/2021 08:30:00 AM Scheduled Provider:CJ RIVERA Location:[facility] Appointment Type:PC OV Future Scheduled Tests Laboratory* Basic Metabolic Panel 06/30/21 * Calcium Level Ionized 07/06/21 * Magnesium Level 07/06/21 * Phosphorus Level 07/06/21 * N-Terminal proBNP 08/20/21 * Lipid Profile 06/23/21 * Prealbumin 07/06/21 * PTH, Intact 07/06/21 * Complete Metabolic Panel 07/06/21 Radiology* MA Mammo Screening Bilateral w/ Awais 02/18/21 [facility] Evaluation + Plan note Future Appointments Appointment Date:10/29/2021 01:30:00 PM Scheduled Provider:CHAYITO DIAZ MD Location:[facility] Appointment Type:PC OV Future Scheduled Tests Laboratory* Basic Metabolic Panel 06/30/21 * Calcium Level Ionized 07/06/21 * Magnesium Level 07/06/21 * Phosphorus Level 07/06/21 * N-Terminal proBNP 08/20/21 * Lipid Profile 06/23/21 * Prealbumin 07/06/21 * PTH, Intact 07/06/21 * Complete Metabolic Panel 07/06/21 Radiology* MA Mammo Screening Bilateral w/ Awais 02/18/21 [facility] Evaluation + Plan note Future Appointments Appointment Date:02/09/2022 11:30:00 AM Scheduled Provider:CJ RIVERA Location:[facility] Appointment Type:PC OV Future Scheduled Tests Laboratory* Basic Metabolic Panel 06/30/21 * Calcium Level Ionized 07/06/21 * Magnesium Level 07/06/21 * Phosphorus Level 07/06/21 * Lipid Profile 06/23/21 * Prealbumin 07/06/21 * PTH, Intact 07/06/21 * Complete Metabolic Panel 07/06/21 * N-Terminal proBNP 08/20/21 Radiology* MA Mammo Screening Bilateral w/ Awais 02/18/21 [facility] Evaluation + Plan note Future Appointments Appointment Date:03/15/2022 11:00:00 AM Scheduled Provider:CJ RIVERA Location:[facility] Appointment Type: OV Future Scheduled Tests Laboratory* Basic Metabolic Panel 06/30/21 * Calcium Level Ionized 07/06/21 * Magnesium Level 07/06/21 * Phosphorus Level 07/06/21 * Lipid Profile 06/23/21 * Prealbumin 07/06/21 * PTH, Intact 07/06/21 * Complete Metabolic Panel 07/06/21 * N-Terminal proBNP 08/20/21 Radiology* MA Mammo Screening Bilateral w/ Awais 02/18/21 [facility] Evaluation + Plan note Future Appointments Appointment Date:03/15/2022 11:00:00 AM Scheduled Provider:CJ RIVERA Location:[facility] Appointment Type:PC OV Future Scheduled Tests Laboratory* Basic Metabolic Panel 06/30/21 * Calcium Level Ionized 07/06/21 * Magnesium Level 07/06/21 * Phosphorus Level 07/06/21 * Lipid Profile 06/23/21 * Prealbumin 07/06/21 * PTH, Intact 07/06/21 * Complete Metabolic Panel 07/06/21 * N-Terminal proBNP 08/20/21 [facility] Evaluation + Plan note Future Appointments Appointment Date:07/01/2021 10:00:00 AM Scheduled Provider:CHRYSTAL GAVIRIA Location:[facility] Appointment Type:CV OV Appointment Date:08/27/2021 01:30:00 PM Scheduled Provider:CJ RIVERA APRN-HAMLET Location:[facility] Appointment Type:PC OV Future Scheduled Tests Laboratory* Basic Metabolic Panel 06/30/21 * N-Terminal proBNP 08/20/21 * Lipid Profile 06/23/21 Radiology* NM Myocardial Spect Rest/Stress 07/23/20 * MA Mammo Screening Bilateral w/ Awais 02/18/21 [facility] Evaluation + Plan note Future Appointments Appointment Date:04/20/2022 01:40:00 PM Scheduled Provider:MARTINA ARROYO Location:[facility] Appointment Type:PC OV Future Scheduled Tests Laboratory* Basic Metabolic Panel 06/30/21 * Calcium Level Ionized 07/06/21 * Magnesium Level 07/06/21 * Phosphorus Level 07/06/21 * Lipid Profile 06/23/21 * Prealbumin 07/06/21 * PTH, Intact 07/06/21 * Complete Metabolic Panel 07/06/21 * N-Terminal proBNP 08/20/21 [facility] Evaluation + Plan note Future Appointments Appointment Date:06/29/2022 01:30:00 PM Scheduled Provider:CJ RIVERA Location:[facility] Appointment Type:Telehealth Future Scheduled Tests Laboratory* Basic Metabolic Panel 06/30/21 * Calcium Level Ionized 07/06/21 * Magnesium Level 07/06/21 * Phosphorus Level 07/06/21 * Lipid Profile 06/09/22 * Lipid Profile 06/23/21 * Prealbumin 07/06/21 * PTH, Intact 07/06/21 * Vitamin D Level 06/09/22 * Complete Metabolic Panel 06/09/22 * Complete Metabolic Panel 07/06/21 * N-Terminal proBNP 08/20/21 [facility] Evaluation + Plan note Future Appointments Appointment Date:10/04/2022 03:30:00 PM Scheduled Provider:CJ RIVERA Location:[facility] Appointment Type:PC OV Future Scheduled Tests Laboratory* Lipid Profile 06/09/22 * Vitamin D Level 06/09/22 * Complete Metabolic Panel 06/09/22 * N-Terminal proBNP 08/20/21 [facility] Evaluation + Plan note Future Appointments Appointment Date:10/20/2022 01:30:00 PM Scheduled Provider:CJ RIVERA Location:[facility] Appointment Type:PC OV Future Scheduled Tests Laboratory* Lipid Profile 06/09/22 * Vitamin D Level 06/09/22 * Complete Metabolic Panel 06/09/22 [facility] Evaluation + Plan note Future Appointments Appointment Date:12/09/2022 02:30:00 PM Scheduled Provider: Location:[facility] Appointment Type:CV OV Appointment Date:01/24/2023 02:30:00 PM Scheduled Provider:CJ RIVERA Location:[facility] Appointment Type:PC OV Future Scheduled Tests Laboratory* Lipid Profile 06/09/22 * Vitamin D Level 06/09/22 * Complete Metabolic Panel 06/09/22 [facility] Evaluation + Plan note Future Appointments Appointment Date:04/18/2023 03:30:00 PM Scheduled Provider:CJ RIVERA Location:[facility] Appointment Type:PC OV Future Scheduled Tests Laboratory* Basic Metabolic Panel 12/07/22 * Magnesium Level 12/07/22 * Complete Blood Count 12/07/22 * Lipid Profile 06/09/22 * Vitamin D Level 06/09/22 * Complete Metabolic Panel 06/09/22 * N-Terminal proBNP 12/07/22 [facility] Evaluation + Plan note Future Appointments Appointment Date:05/03/2023 01:00:00 PM Scheduled Provider:CHAYITO DIAZ MD Location:[facility] Appointment Type:[facility] Follow-Up Future Scheduled Tests Laboratory* Basic Metabolic Panel 12/07/22 * Lipase Level 04/18/23 * Magnesium Level 12/07/22 * Complete Blood Count 12/07/22 * Lipid Profile 06/09/22 * Vitamin D Level 06/09/22 * Complete Metabolic Panel 04/18/23 * Complete Metabolic Panel 06/09/22 * N-Terminal proBNP 12/07/22 [facility] Evaluation + Plan note Future Appointments Appointment Date:05/12/2023 10:30:00 AM Scheduled Provider:CHAYITO DIAZ MD Location:[facility] Appointment Type:[facility] Follow-Up Future Scheduled Tests Laboratory* Basic Metabolic Panel 12/07/22 * Lipase Level 04/18/23 * Magnesium Level 12/07/22 * Complete Blood Count 12/07/22 * Lipid Profile 06/09/22 * Vitamin D Level 06/09/22 * Complete Metabolic Panel 04/18/23 * Complete Metabolic Panel 06/09/22 * N-Terminal proBNP 12/07/22 [facility] Evaluation + Plan note Future Appointments Appointment Date:06/06/2023 01:00:00 PM Scheduled Provider:CJ RIVERA Location:[facility] Appointment Type:[facility] Follow-Up Diagnostic Tests Pending * Urine Culture 05/19/23 Future Scheduled Tests Laboratory* Basic Metabolic Panel 12/07/22 * Lipase Level 04/18/23 * Magnesium Level 12/07/22 * Complete Blood Count 12/07/22 * Lipid Profile 06/09/22 * Vitamin D Level 06/09/22 * Complete Metabolic Panel 04/18/23 * Complete Metabolic Panel 06/09/22 * N-Terminal proBNP 12/07/22 [facility] Evaluation + Plan note Future Appointments Appointment Date:06/06/2023 01:00:00 PM Scheduled Provider:CJ RIVERA Location:[facility] Appointment Type:PC OV Hospital Follow-Up Future Scheduled Tests Laboratory* Basic Metabolic Panel 12/07/22 * Lipase Level 04/18/23 * Magnesium Level 12/07/22 * Complete Blood Count 12/07/22 * Lipid Profile 06/09/22 * Vitamin D Level 06/09/22 * Complete Metabolic Panel 04/18/23 * Complete Metabolic Panel 06/09/22 * N-Terminal proBNP 12/07/22 [facility] Evaluation + Plan note Future Appointments Appointment Date:11/01/2023 02:30:00 PM Scheduled Provider:MARGIE SOTO DO Location:[facility] Appointment Type: OV Future Scheduled Tests Laboratory* Basic Metabolic Panel 12/07/22 * Lipase Level 04/18/23 * Magnesium Level 12/07/22 * Complete Blood Count 12/07/22 * Complete Metabolic Panel 04/18/23 * N-Terminal proBNP 12/07/22 Radiology* CT Abd/Pelvis w/ IV Contrast Only 06/06/23 [facility] Evaluation + Plan note Future Appointments Appointment Date:10/21/2023 11:30:00 AM Scheduled Provider: Location:[facility] Appointment Type:DB Diabetic Individual Visit (AOH) Appointment Date:11/01/2023 02:30:00 PM Scheduled Provider:MARGIE SOTO DO Location:[facility] Appointment Type:[facility] Future Scheduled Tests Laboratory* Basic Metabolic Panel 12/07/22 * Lipase Level 04/18/23 * Magnesium Level 12/07/22 * Complete Blood Count 12/07/22 * C-Peptide 10/17/23 * Complete Metabolic Panel 04/18/23 * N-Terminal proBNP 12/07/22 Radiology* CT Abd/Pelvis w/ IV Contrast Only 06/06/23 [facility] evaluation + Plan note Future Appointments Appointment Date:11/10/2023 01:30:00 PM Scheduled Provider:CJ RIVERA Location:[facility] Appointment Type: OV ED Follow Up Appointment [...] CT Abd/Pelvis w/ IV Contrast Only 06/06/23 [facility] Evaluation + Plan note Future Appointments Appointment Date:01/24/2024 01:30:00 PM Scheduled Provider:CJ RIVERA Location:[facility] Appointment Type:PC OV Appointment Date:01/27/2024 03:00:00 PM Scheduled Provider: Location:[facility] Appointment Type:MA Mammogram Screening Bilateral w/ Awais Appointment Date:04/19/2024 02:00:00 PM Scheduled Provider:ESTHELA VALDIVIA MD Location:[facility] Appointment Type:[employer] Future Scheduled Tests Laboratory* Lipase Level 04/18/23 * Complete Metabolic Panel 04/18/23 Radiology* MA Mammo Screening Bilateral w/ Awais 01/27/24 * CT Abd/Pelvis w/ IV Contrast Only 06/06/23 [facility] evaluation + Plan note Future Appointments Appointment Date:03/20/2024 11:30:00 AM Scheduled Provider:CJ RIVERA Location:[facility] Appointment Type:PC OV Appointment Date:03/23/2024 03:30:00 PM Scheduled Provider: Location:[facility] Appointment Type:MA Mammogram Screening Bilateral w/ Awais Appointment Date:04/19/2024 02:00:00 PM Scheduled Provider:ESTHELA VALDIVIA MD Location:[facility] Appointment Type:[employer] Future Scheduled Tests Laboratory* Lipase Level 04/18/23 * Lipid Profile 05/17/24 * Complete Metabolic Panel 04/18/23 * Complete Metabolic Panel 05/17/24 Radiology* MA Mammo Screening Bilateral w/ Awais 03/23/24 * CT Abd/Pelvis w/ IV Contrast Only 06/06/23 [facility] Evaluation note* Diagnosis Focal epilepsy (HCC) Localization-related (focal) (partial) epilepsy and epileptic syndromes with simple partial seizures, without mention of intractable epilepsy [facility] Focal epilepsy (HCC) Localization-related (focal) (partial) epilepsy and epileptic syndromes with simple partial seizures, without mention of intractable epilepsy [facility] [place] [facility]* Diagnosis Partial epilepsy with impairment of consciousness (HCC) Localization-related (focal) (partial) epilepsy and epileptic syndromes with complex partial seizures, without mention of intractable epilepsy Focal epilepsy (HCC) Localization-related (focal) (partial) epilepsy and epileptic syndromes with simple partial seizures, without mention of intractable epilepsy [facility] Diagnosis Focal epilepsy (HCC) Localization-related (focal) (partial) epilepsy and epileptic syndromes with simple partial seizures, without mention of intractable epilepsy [facility] Diagnosis Partial epilepsy with impairment of consciousness (HCC) Localization-related (focal) (partial) epilepsy and epileptic syndromes with complex partial seizures, without mention of intractable epilepsy [facility] [place] [facility]* Diagnosis Focal epilepsy (HCC) Localization-related (focal) (partial) epilepsy and epileptic syndromes with simple partial seizures, without mention of intractable epilepsy [facility] [place] [facility]* Diagnosis Psychosis, unspecified psychosis type (HCC)- Primary Agitation Other and unspecified special symptom or syndrome, not elsewhere classified [facility] [place] [facility]* Diagnosis Focal epilepsy (HCC) Localization-related (focal) (partial) epilepsy and epileptic syndromes with simple partial seizures, without mention of intractable epilepsy [facility] Diagnosis Partial epilepsy with impairment of consciousness (HCC) Localization-related (focal) (partial) epilepsy and epileptic syndromes with complex partial seizures, without mention of intractable epilepsy [facility]* Constitutional: Well developed, awake/alert/oriented x3, [...] reflexes, normal strengthPsychological: Appropriate mood and behavior [facility]* Cardiovascular: Regular, rate and rhythm, no murmurs, 2+ equal pulses of the extremities, normal S 1and S 2Gastrointestinal: Soft, TTP of Rt~mid abdomen. No guarding.Extremities: normal extremities, no cyanosis edema, contusions or wounds, no clubbingConstitutional: Well developed, awake/alert/oriented x3, no distress, alert and cooperative [facility]* Diagnosis Epigastric pain Abdominal pain, epigastric Other chronic pancreatitis (CMS/HCC) documented in this encounter [facility] Work Phone: [phone] note* Diagnosis Chronic pancreatitis, unspecified pancreatitis type (CMS/HCC)- Primary documented in this encounter [facility] Work Phone: [phone] note* Diagnosis Poor intravenous access documented in this encounter [facility] Work Phone: [phone] note* Diagnosis Poor intravenous access documented in this encounter [facility] Work Phone: [phone] note* Diagnosis Poor intravenous access documented in this encounter [facility] Work Phone: [phone] note* Diagnosis Chronic pancreatitis, unspecified pancreatitis type (CMS/HCC)- Primary Generalized abdominal pain Abdominal pain, generalized documented in this encounter [facility] Work Phone: [phone] note* Diagnosis Chronic pancreatitis, unspecified pancreatitis type (CMS/HCC) documented in this encounter [facility] Work Phone: [phone] note* Diagnosis Chronic pancreatitis, unspecified pancreatitis type (CMS/HCC) documented in this encounter [facility] Work Phone: Evaluation note* Diagnosis 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 Chronic pancreatitis, unspecified pancreatitis type (CMS/HCC) Right ear impacted cerumen Impacted cerumen Diabetes mellitus, type 2 (CMS/HCC) Type II or unspecified type diabetes mellitus without mention of complication, not stated as uncontrolled documented in this encounter [facility] Work Phone: [phone] note* Diagnosis Other chronic pancreatitis (CMS/HCC) documented in this encounter [facility] Work Phone: [phone] note* Diagnosis Other chronic pancreatitis (CMS/HCC) documented in this encounter [facility] Work Phone: [phone] note* Diagnosis Generalized abdominal pain- Primary Abdominal pain, generalized Generalized abdominal pain Abdominal pain, generalized 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 Acute embolism and thrombosis of unspecified deep veins of distal lower extremity, bilateral (CMS/HCC) Palpitations Factor 5 Leiden mutation, heterozygous ([facility]/HCC) Abdominal pain Abdominal pain, unspecified site documented in this encounter [facility] Work Phone: [phone] note* Diagnosis Generalized abdominal pain- Primary Abdominal pain, generalized Chronic pancreatitis, unspecified pancreatitis type (Multi) documented in this encounter [facility] Work Phone: [phone] note* Diagnosis Acute pancreatitis without necrosis or infection, unspecified (HHS-HCC)- Primary Pulmonary embolism on right (Multi) Other pulmonary embolism and infarction Idiopathic chronic pancreatitis (Multi) Single subsegmental pulmonary embolism without acute cor pulmonale (Multi) Swelling of extremity Anticoagulant long-term use Encounter for long-term (current) use of anticoagulants documented in this encounter [facility] Work Phone: Evaluation note* Diagnosis History of epistaxis- Primary Hematemesis, unspecified whether nausea present Anticoagulated Encounter for long-term (current) use of anticoagulants documented in this encounter [facility] Work Phone: Evaluation note* Diagnosis [...] vulva and vagina documented [facility] [place] [facility]* Diagnosis Focal [...] female genital organs documented [facility] [place] [facility]* Diagnosis Focal epilepsy (HCC)- Primary Localization-related (focal) (partial) epilepsy and epileptic syndromes with simple partial seizures, without mention of intractable epilepsy Anxiety and depression Dysthymic disorder Headaches Nicotine use disorder Tobacco use disorder Obesity, Class I, BMI 30-34.9 Obesity, unspecified Urinary frequency- Primary Flank pain Abdominal pain, unspecified site [facility] Narrative No data available for this section [facility] Discharge instructions No data available for this section [facility] Discharge instructions* Activity:activity as tolerated. May shower. * Call Provider If:Temperature is greater than 102 degrees. Chills. Drinking less than normal. * Follow Up Appointment 1:Physician/Dept/Service: Cj Rivera SPECIAL NEEDS TEACHER - PCPScheduled Date/Time: 06-Jun-2023 13:00Location: [address] [place] [address] Srhlg Number: [phone]: Please arrive 10-15 minutes early, bring discharge summary, bring photo ID, current list of medications & dosages, insurance cards and any copay that may apply. If unable to keep this appointment, please call to cancel at least 24 hrs prior to appointment. * Follow Up Appointment 2:Physician/Dept/Service: Dr. Hicks - GastroenterologyScheduled Date/Time: 18-May-2023 10:20Location: [address] [address]Tqtfz Number: [phone]: Please arrive 10-15 minutes early, bring photo ID, current list of medications & dosages, insurance cards and any copay that may apply. If unable to keep this appointment, please call to cancel at least 24 hrs prior to appointment. * Follow Up Appointment 3:Physician/Dept/Service: Dr. Rasmussen - Pain MedicineScheduled Date/Time: 25-May-2023 09:00Location: [address] [place] [id number] Number: [phone]: Please arrive 10-15 minutes early, bring photo ID, current list of medications & dosages, insuranc e cards and any copay that may apply. If unable to keep this appointment, please call to cancel at least 24 hrs prior to appointment. [facility]* Activity:activity as tolerated. Weight-bearing Instructions: full weight bearing. * Call Provider If:Vomiting (throwing up) and not able to eat or drink for 12 hours. Any new concerning symptoms. * Follow Up Appointment 1:Physician/Dept/Service: Gastroenterology clinicScheduled Date/Time: 06-Jul-2023 09:40Location: [facility] * Follow Up Appointment 2:Physician/Dept/Service: Pain management clinicScheduled Date/Time: 05-Jul-2023 13:30Location: [facility]. [facility]* Attachments The following attachments cannot be sent through Care Everywhere. * Acute pancreatitis ([place]iber[place]) documented in this [facility] Work Phone: Note* Andi Sandoval RN: [...] Schedule the Following Appointments Follow Up with [facility] When Within 2-4 days Where: Follow Up with CJ RIVERA When Within 2-4 days Where: [address] [facility] [place] [address]- [phone] Follow Up with Go to emergency room [...] When Why Instructions Last Dose New acetaminophen-hydrocodone ([place] 325- 5 mg oral tablet) 1 tab(s) [...] may report side effects to FDA at 5-939-RYA-8080. What other drugs will affect ondansetron? Ondansetron [...] interact with ondansetron. This includes prescription and [id number] medicines, vitamins, and herbal products. Give a [...] to ensure that the information provided by [employer] ('[employer]') is accurate, up-to-date, and complete, but no guarantee is made to that effect. Drug information contained herein may be time sensitive. [employer] information has been compiled for use by healthcare practitioners and consumers in the [place] and therefore [employer] does not warrant that uses outside of the [place] are appropriate, unless specifically indicated otherwise. [employer]'s drug information does not endorse drugs, diagnose patients or recommend therapy. [employer] drug information isan informational resource designed to [...] effective or appropriate for any given patient. [employer] does not assume any responsibility for any aspect of healthcare administered with the aid of information [employer] provides. The information contained herein is not intended to cover all possible uses, directions, precautions, warnings, drug interactions, allergic reactions, or adverse effects. If you have questions about the drugs you are taking, check with your doctor, nurse or pharmacist. Copyright 4628-0841 [facility] [employer] [facility]. Version: 16.. Revision Date: 04/21/2023. cephalexin (sef [...] may report side effects to FDA at 8-603-BRC-2886. What other drugs will affect cephalexin? Tell your doctor about all your other medicines, especially: metformin; or probenecid. This list is not complete. Other drugs may affect cephalexin, including prescription and scei-okr-vmafsfg medicines, vitamins, and herbal products. Not all [...] to ensure that the information provided by [employer]. ('[employer]') is accurate, up-to-date, and complete, but no guarantee is made to that effect. Drug information contained herein may be time sensitive. [employer] information has been compiled for use by healthcare practitioners and consumers in the [place] and therefore [employer] does not warrant that uses outside of the [place] are appropriate, unless specifically indicated otherwise. [employer] drug information does not endorse drugs, diagnose patients or recommend therapy. [employer] drug information isan informational resource designed to [...] effective or appropriate for any given patient. [employer] does not assume any responsibility for any aspect of healthcare administered with the aid of information [employer] provides. The information contained herein is not intended to cover all possible uses, directions, precautions, warnings, drug interactions, allergic reactions, or adverse effects. If you have questions about the drugs you are taking, check with your doctor, nurse or pharmacist. Copyright 7476-5848 [employer]. Version: .. Revision Date: 04/20/2023. acetaminophen and [...] may report side effects to FDA at 0-149-RNG-7934. What other drugs will affect acetaminophen and [...] affect acetaminophen and hydrocodone, including prescription and jjil-pur-rtxbddy medicines, vitamins, and herbal products. Not all [...] to ensure that the information provided by [employer]') is accurate, up-to-date, and complete, but no guarantee is made to that effect. Drug information contained herein may be time sensitive. [employer] information has been compiled for use by healthcare practitioners and consumers in the [place] and therefore [employer] does not warrant that uses outside of the [place] are appropriate, unless specifically indicated otherwise. [employer] drug information does not endorse drugs, diagnose patients or recommend therapy. [employer] drug information isan informational resource designed to [...] effective or appropriate for any given patient. [employer] does not assume any responsibility for any aspect of healthcare administered with the aid of information [employer] provides. The information contained herein is not intended to cover all possible uses, directions, precautions, warnings, drug interactions, allergic reactions, or adverse effects. If you have questions about the drugs you are taking, check with your doctor, nurse or pharmacist. Copyright 1788-5532 [employer]. Version: 19.. Revision Date: 05/09/2023. Education Materials [...] If needed, more treatment may be started. 7534-5092 [employer]. [address] [place] [address], [place] [address]. All rights reserved. This information is not [...] blood in stool Seizure Loss of consciousness 2507-9284 [employer]. [address] [place] [address]. All rights reserved. This information is not intended as a substitute for professional medical care. Always follow yourhealthcare professional's instructions. Additional Information VACCINATE! IT SAVES LIVES! Members of the community who have not yet received the COVID-19 vaccine and would like to receive it can visit one of [facility] vaccine clinics. There are many vaccine clinic locations within the [facility]. For locations and available times, please visit [email or web address] It is important to note that some COVID mobile vaccine clinics are held outdoors and may be canceled in rainy or stormy conditions. To learn more about pediatric vaccinations (ages 5-11), we invite you to visit the [facility] webpage. [email or web address] [email or web address] learn more about the COVID-19 vaccine, we invite you to visit the CDC website for a list of frequently asked questions. https://www.cdc.gov/coronavirus/2019-ncov/vaccines/faq.html [facility] [employer] Patient Portal Access Instructions: Stay connected with your healthcare team and access your personal medical information anytime with the [facility] Patient Portal. If you would like a full copy of your medical records please contact the [facility] Medical Records Department Tuesday through Tuesday between 8a.m. and 4:30p.m. Please follow the directions below to access the portal: 1.Access the email account you provided upon registration to the [facility].2.Look for an invitation email from [facility].3.Open the email and access the invitation link: Accept Invitation to [facility]4.Fill in the required azul to create your account. Sign into [email or web address] with your username and password that you [...] you will allow to register on the [facility] Patient Portal for access to your information. You can also access the [employer] Patient Portal on the [employer]. Simply click on Health Records under [employer] and then click on the [employer] logo. HOW TO SAFELY DISPOSE OF PRESCRIPTION [...] Call your local pharmacy or go to [email or web address] to find one close to you.3.Make use of household items: Use cat litter or old coffee grounds to dispose medications if other options arenot available. Mix your drugs with these household products, seal them in an airtight container andthrow it into the garbage. Call [facility]: [phone] to be sure your drugs can be [...] aware that I should contact my doctor. Patient/Plant Operations Coordinator Signature: Date/Time: Relationship to Patient: Witness Name/Signature: Date/Time: [facility] Progress note No data available for this section [facility] Reason for referral (narrative)* Consultation (Routine) - Authorized Specialty Diagnoses / Procedures Referred By Lester almaraz Referred To Contact Gastroenterology Diagnoses Chronic pancreatitis, unspecified pancreatitis type (CMS/HCC) Procedures [place] [address] [address] Department [place] [address] Referral ID Status Reason Start Date Expiration Date V isits Requested Visits Authorized [id number] Authorized 08/03/2023 08/02/2024 1 1 * Medications - Pending Review Specialty Diagnoses / Procedures Referred By Lester almaraz Referred To Contact Diagnoses Chronic pancreatitis, unspecified pancreatitis type (CMS/[place]) [place] [address] [address] Department of Medicine-Gastroenterology [place] [phone] Referral ID Status Reason Start Date Expiration Date V isits Requested Visits Authorized [id number] Pending Review 1 1 [facility] Work Phone: Reason for referral (narrative)* Consultation (Routine) - Authorized Specialty Diagnoses / Procedures Referred By Contac t Referred To Contact Family Medicine / Primary Care Diagnoses Chronic pancreatitis, unspecified pancreatitis type (CMS/HCC) [place]ón [place] [address] [employer] [facility] Department [place] [address] Referral ID Status Reason Start Date Expiration Date Visits Requested Visits Authorized [id number] Authorized Specialty Services Required 11/15/2023 11/14/2024 1 1 [facility] Work Phone: Reason for referral (narrative)* Consultation (Routine) - Authorized Specialty Diagnoses / Procedures Referred By Contac t Referred To Contact Pharmacy Diagnoses Anticoagulant long-term use Brea Nolen MD [address] [place] [address] Referral ID Status Reason Start Date Expiration Date Visits Requested Visits Authorized [id number] Authorized Specialty Services Required 03/01/2024 03/01/2025 1 1 T [facility] Work Phone: Reason for visit Narrative* Auth/Cert Specialty Diagnoses / Procedures Referred By Contac t Referred To Contact Diagnoses Generalized abdominal pain necrotizing [place] [address] [facility] Department [place] [address] [facility] [address] [address] [place] [address] Referral ID Status Reason Start Date Expiration Date Visits Re quested Visits Authorized [id number] 1 1 [facility] Work Phone: Summary Purpose Family History Unknown Family Member Name Dates Details Family history of coronary a rtery disease: Mother(V17.3, Z82.49) Status:Active Unknown Family Member Name Dates Details Family history of coronary a rtery disease: Mother(V17.3, Z82.49) Status:Active Advance Directives Documents on File Type Date Recorded Patient Plant Operations Coordinator Expl anation Advance Directive(s) 05/22/2021 8:45 PM Advance Directive(s) 05/22/2021 10:16 PM Advance Directive(s) 05/22/2021 10:17 PM Advance Directive(s) 03/05/2020 6:31 PM Advance Directive(s) 11/26/2019 12:11 PM Advance Directive(s) 11/26/2019 12:27 PM Documents on File Type Date Recorded Patient Plant Operations Coordinator Expl anation Advance Directive(s) 05/22/2021 10:17 PM [...] chronic pancreatitis (CMS/HCC) Procedures EGD w Fluoro MD ESOPHAGOGASTRODUODENOSCOPY TRANSORAL DIAGNOSTIC MD EGD TRANSORAL BIOPSY SINGLE/[place] [address] [address] [facility] Department of [place] [address] Referral ID Status Reason Start Date Expiration Date V isits Requested Visits Authorized [id number] Authorized 11/15/2023 11/14/2024 1 1 Specialty Diagnoses / Procedures Referred By Lester t Referred To Contact Radiology Diagnoses Chronic pancreatitis, unspecified pancreatitis type (CMS/HCC) Procedures MRCP pancreas [place] [address] [address] Department of [place] [address] Referral ID Status Reason Start Date Expiration Date Visits Requested Visits Authorized [id number] Authorized Perform Procedure 10/12/2023 10/11/2024 1 1 Specialty Diagnoses / Procedures Referred By Contac [place] [address] [address] Department [place] [address] Referral ID Status Reason Start Date Expiration Date V isits Requested Visits Authorized [id number] Pending Review 08/26/2023 08/25/2024 1 1 Specialty Diagnoses / Procedures Referred By Contac t Referred To Contact Radiology Diagnoses Poor intravenous access Procedures IR CVC port placement Consult to Interventional Radiology Tianna Rasmussen MD [address] [place] [address] Referral ID Status Reason Start Date Expiration Date Visits Requested Visits Authorized [id number] Authorized Perform Procedure 3 08/09/2024 1 1 Additional Source Comments INFORMATION SOURCE (unrecogn ized section and content) DATE CREATED AUTHOR 03/10/2018 [facility] DATE CREATED AUTHOR AUTHOR'S ORGANIZ ATION 03/10/2018 [facility] DATE CREATED AUTHOR AUTHOR'S ORGANIZ ATION 03/10/2018 [facility] DATE CREATED AUTHOR AUTHOR'S ORGANIZ ATION 03/13/2018 [facility] DATE CREATED AUTHOR AUTHOR'S ORGANIZ ATION 07/14/2018 [facility] DATE CREATED AUTHOR AUTHOR'S ORGANIZ ATION 09/18/2019 [facility] DATE CREATED AUTHOR AUTHOR'S ORGANIZ ATION 12/17/2019 [facility] DATE CREATED AUTHOR AUTHOR'S ORGANIZ ATION 10/30/2020 [facility] DATE CREATED AUTHOR AUTHOR'S ORGANIZ ATION 05/01/2021 [facility] DATE CREATED AUTHOR AUTHOR'S ORGANIZ ATION 09/19/2021 [facility] DATE CREATED AUTHOR AUTHOR'S ORGANIZ ATION 04/30/2023 [facility] DATE CREATED AUTHOR AUTHOR'S ORGANIZ ATION 05/26/2023 [employer] DATE CREATED AUTHOR AUTHOR'S ORGANIZ ATION 12/17/2023 [facility] DATE CREATED AUTHOR AUTHOR'S ORGANIZ ATION 03/22/2024 [facility] DATE CREATED AUTHOR AUTHOR'S ORGANIZ ATION 06/04/2024 [facility] DATE CREATED AUTHOR AUTHOR'S ORGANIZ ATION 06/09/2024 [facility] DATE CREATED AUTHOR AUTHOR'S ORGANIZ ATION 06/09/2024 [facility] DATE CREATED AUTHOR AUTHOR'S ORGANIZ ATION 06/11/2024 [facility] DATE CREATED AUTHOR AUTHOR'S ORGANIZ ATION 06/15/2024 [facility] DATE CREATED AUTHOR AUTHOR'S ORGANIZ ATION 06/16/2024 [facility] Source Comments (unrecognize d section and content) In the event this informatio n is protected by the Federal Confidentiality of Alcohol and Drug Abuse Patient Records regulations: The Federal rules restrict any use of the information to criminally investigate or prosecute any alcohol or drug abuse patient.[facility] HospitalIn the event this information is protected by the Federal Confidentiality of Alcohol and Drug Abuse Patient Records regulations: The Federal rules restrict any use of the information to criminally investigate or prosecute any alcohol or drug abuse patient.[facility] HospitalIn the event this information is protected by the Federal Confidentiality of Alcohol and Drug Abuse Patient Records regulations: The Federal rules restrict any use of the information to criminally investigate or prosecute any alcohol or drug abuse patient.[facility] HospitalIn the event this information is protected by the Federal Confidentiality of Alcohol and Drug Abuse Patient Records regulations: The Federal rules restrict any use of the information to criminally investigate or prosecute any alcohol or drug abuse patient.[facility] HospitalIn the event this information is protected by the Federal Confidentiality of Alcohol and Drug Abuse Patient Records regulations: The Federal rules restrict any use of the information to criminally investigate or prosecute any alcohol or drug abuse patient.[facility] HospitalIn the event this information is protected by the Federal Confidentiality of Alcohol and Drug Abuse Patient Records regulations: The Federal rules restrict any use of the information to criminally investigate or prosecute any alcohol or drug abuse patient.[facility] HospitalIn the event this information is protected by the Federal Confidentiality of Alcohol and Drug Abuse Patient Records regulations: The Federal rules restrict any use of the information to criminally investigate or prosecute any alcohol or drug abuse patient.[facility] HospitalIn the event this information is protected by the Federal Confidentiality of Alcohol and Drug Abuse Patient Records regulations: The Federal rules restrict any use of the information to criminally investigate or prosecute any alcohol or drug abuse patient.[facility] HospitalIn the event this information is protected by the Federal Confidentiality of Alcohol and Drug Abuse Patient Records regulations: The Federal rules restrict any use of the information to criminally investigate or prosecute any alcohol or drug abuse patient.[facility] HospitalIn the event this information is protected by the Federal Confidentiality of Alcohol and Drug Abuse Patient Records regulations: The Federal rules restrict any use of the information to criminally investigate or prosecute any alcohol or drug abuse patient.[facility] HospitalIn the event this information is protected by the Federal Confidentiality of Alcohol and Drug Abuse Patient Records regulations: The Federal rules restrict any use of the information to criminally investigate or prosecute any alcohol or drug abuse patient.[facility] HospitalIn the event this information is protected by the Federal Confidentiality of Alcohol and Drug Abuse Patient Records regulations: The Federal rules restrict any use of the information to criminally investigate or prosecute any alcohol or drug abuse patient.[facility] HospitalIn the event this information is protected by the Federal Confidentiality of Alcohol and Drug Abuse Patient Records regulations: The Federal rules restrict any use of the information to criminally investigate or prosecute any alcohol or drug abuse patient.[facility] HospitalIn the event this information is protected by the Federal Confidentiality of Alcohol and Drug Abuse Patient Records regulations: The Federal rules restrict any use of the information to criminally investigate or prosecute any alcohol or drug abuse patient.[facility] HospitalIn the event this information is protected by the Federal Confidentiality of Alcohol and Drug Abuse Patient Records regulations: The Federal rules restrict any use of the information to criminally investigate or prosecute any alcohol or drug abuse patient.[facility] HospitalIn the event this information is protected by the Federal Confidentiality of Alcohol and Drug Abuse Patient Records regulations: The Federal rules restrict any use of the information to criminally investigate or prosecute any alcohol or drug abuse patient.[facility] HospitalIn the event this information is protected by the Federal Confidentiality of Alcohol and Drug Abuse Patient Records regulations: The Federal rules restrict any use of the information to criminally investigate or prosecute any alcohol or drug abuse patient.[facility] HospitalIn the event this information is protected by the Federal Confidentiality of Alcohol and Drug Abuse Patient Records regulations: The Federal rules restrict any use of the information to criminally investigate or prosecute any alcohol or drug abuse patient.[facility] Reason for Visit (unrecogniz ed section [...] Reason Comments Psychiatric Evaluation [facility] in [place] for behavioral, anxiety and depression. En route patient became aggressive and confused so the oil transport driver came here for emergency assistance. Word [...] pancreatitis (CMS/HCC) [place] [address] [facility] Department of Emergency Medicine [place] [phone] [place] [address] [place] [address] Referral ID Status Reason Start Date Expiration Date Visits Re quested Visits Authorized [id number] 1 1 Reason Onset Date Comments Refill Request 06/27/2023 Reason Comments Hospital Follow-up necrotizing pancreatitis Specialty Diagnoses / Procedures Referred By Contac t Referred To Contact Radiology Diagnoses Poor intravenous access Procedures IR CVC port placement Consult to Interventional Radiology Tianna Rasmussen MD [address] [place] [address] Referral ID Status Reason Start Date Expiration Date Visits Requested Visits Authorized [id number] Authorized Perform Procedure 3 08/09/2024 1 1 Specialty Diagnoses / Procedures Referred By Contac t Referred To Contact Radiology Diagnoses Poor intravenous access Procedures IR CVC check IR CVC port placement Shantell Rossi, MANAGER PROFESSIONAL DEVELOPMENT-SPECIAL NEEDS TEACHER [address] [place] [address] Referral ID Status Reason Start Date Expiration Date Visits Requested Visits Authorized [id number] Authorized Perform Procedure 10/07/2023 10/06/2024 1 1 Reason Comments Follow-up Follow-up for 5 IV i nfusion therapy treatments Specialty Diagnoses / Procedures Referred By Contac t Referred To Contact Radiology Diagnoses Chronic pancreatitis, unspecified pancreatitis type (CMS/HCC) Procedures MRCP pancreas w [place] [address] [facility] Department of Medicine-Gastroenterology [place] [phone] Referral ID Status Reason Start Date Expiration Date Visits Requested Visits Authorized [id number] Authorized Perform Procedure 10/12/2023 10/11/2024 1 1 Reason Comments Abdominal Pain Specialty Diagnoses / Procedures Referred By Contac t Referred To Contact Diagnoses Pseudocyst of pancreas Procedures No coded services entered Nancy Benedict, MANAGER PROFESSIONAL DEVELOPMENT-SPECIAL NEEDS TEACHER [address] [facility] [address] [place] [address] [facility] [place] [address] [place] [address] Referral ID Status Reason Start Date Expiration Date Visits Re quested Visits Authorized [id number] 1 1 Specialty Diagnoses / Procedures Referred By Contact Referred To Contact Gastroenterology Diagnoses Other chronic pancreatitis (CMS/HCC) Procedures EGD w Fluoro MD ESOPHAGOGASTRODUODENOSCOPY TRANSORAL DIAGNOSTIC MD EGD TRANSORAL BIOPSY SINGLE/[place] [address] [address] [facility] Department of [place] [address] Referral ID Status Reason Start Date Expiration Date V isits Requested Visits Authorized [id number] Authorized 11/15/2023 11/14/2024 1 1 Reason Comments [...] coded services entered Brea Nolen MD [address] [place] [address] [facility] [address] [place] [address] Referral ID Status Reason Start Date Expiration Date Visits Re quested Visits Authorized [id number] 1 1 Reason Comments Abdominal Pain Amb to ED with c/o a bd pain. She reports that she had a bloody nose this am and then started having emesis with blood in it. She is on Coumadin for a PE. EKG done at Reason Comments Vaginal Problem Specialty Diagnoses / Procedures Referred By Lester almaraz Referred To Contact Gynecology / PREDATOR CONTROL TRAPPER Diagnoses check painful spot Procedures EST [facility] PATIENT Self Laury Orr APRN.SPECIAL NEEDS TEACHER [address] [place] [address] Referral ID Status Reason Start Date Expiration Date Visits Re quested Visits Authorized [id number] Closed 06/08/2024 09/06/2024 1 1 Reason Comments Patient Update Reason Comments Urinary Problem Frequency, burning x 3 weeks Care Teams (unrecognized sec tion and content) Body Worker Relationship Specialty Start Date End Date Cj Rivera CNP [address] [place] [address] PCP - General Family Practice 03/05/20 Body Worker Relationship Specialty Start Date End Date Cj Rivera CNP [address] [place] [address] PCP - General Family Practice 03/05/20 Body Worker Relationship Specialty Start Date End Date Cj Rivera CNP [address] [place] [address] PCP - General Family Practice 03/05/20 Body Worker Relationship Specialty Start Date End Date Cj Rivera CNP [address] [place] [address] PCP - General Family Medicine 03/05/20 Body Worker Relationship Specialty Start Date End Date Cj Rivera CNP [address] [place] [address] (Work) PCP - General Family Medicine 03/05/20 Body Worker Relationship Specialty Start Date End Date Cj Rivera CNP [address] [place] [address] PCP - General Family Medicine 03/05/20 Body Worker Relationship Specialty Start Date End Date Cj Rivera CNP [address] [place] [address] (Work) PCP - General Family Medicine 03/05/20 Body Worker Relationship Specialty Start Date End Date Sharla Zamorano [place] [id number] [place] [address] PCP - General 01/07/16 Body Worker Relationship Specialty Start Date End Date Cj Rivera CNP [address] [place] [phone] (Work) PCP - General Family Medicine 03/05/20 Body Worker Relationship Specialty Start Date End Date Cj Rivera CNP [address] [place] [phone] (Work) PCP - General Family Medicine 03/05/20 Body Worker Relationship Specialty Start Date End Date Cj Rivera APRN-HAMLET [address] [place] [address] [place] [address] PCP - General 04/03/23 Body Worker Relationship Specialty Start Date End Date Cj Rivera APRN-CNP [address] [place] [address] PCP - General 04/03/23 Body Worker Relationship Specialty Start Date End Date Cj Rivera APRN-SPECIAL NEEDS TEACHER PCP - General 04/03/23 Body Worker Relationship Specialty Start Date End Date Cj Rivera APRN-SPECIAL NEEDS TEACHER PCP - General 04/03/23 [place] [address] [facility] Medicine-Gastroenterology [place] [phone] Surgeon Gastroenterology 10/12/23 Body Worker Relationship Specialty Start Date End Date Cj Rivera APRN-SPECIAL NEEDS TEACHER PCP - General 04/03/23 [place] [address] [facility] [place] [address] Surgeon Gastroenterology 10/12/23 Body Worker Relationship Specialty Start Date End Date Cj Rivera APRN-SPECIAL NEEDS TEACHER PCP - General 04/03/23 [place] [address] [facility] [place] [address] Surgeon Gastroenterology 10/12/23 Body Worker Relationship Specialty Start Date End Date Cj Rivera APRN-SPECIAL NEEDS TEACHER PCP - General 04/03/23 Colton Hicks MD [address] [place], [place] [address] [address] Surgeon Gastroenterology 10/12/23 Body Worker Relationship Specialty Start Date End Date Cj Rivera APRN-SPECIAL NEEDS TEACHER PCP - General 04/03/23 Colton Hicks MD [address] [place], [place] [phone] Surgeon Gastroenterology 10/12/23 Body Worker Relationship Specialty Start Date End Date Cj Rivera APRN-SPECIAL NEEDS TEACHER PCP - General 04/03/23 Colton Hicks MD [address] [place], [place] [address]Gastroenterology [place] [phone] Surgeon Gastroenterology 10/12/23 Body Worker Relationship Specialty Start Date End Date Cj Rivera APRN-SPECIAL NEEDS TEACHER PCP - General 04/03/23 Colton Hicks MD [address] [place] [address] Surgeon Gastroenterology 10/12/23 Body Worker Relationship Specialty Start Date End Date LorCj agosto APRN-CNP PCP - General 04/03/23 [place] [address] [facility] [place] [address] Surgeon Gastroenterology 10/12/23 Body Worker Relationship Specialty Start Date End Date Cj Rivera APRN-CNP [address] [place] [address] PCP - General Family Medicine 02/15/24 [place] [address] [facility] [place] [address] Surgeon Gastroenterology 10/12/23 Body Worker Relationship Specialty Start Date End Date Cj Rivera APRN-CNP [address] [place] [address] PCP - General Family Medicine 02/15/24 Colton [place] [id number] [place] [address] [place] [address] Surgeon Gastroenterology 10/12/23 Body Worker Relationship Specialty Start Date End Date Cj Rivera APRN-CNP [address] [place] [address] PCP - General [facility] Medicine 02/15/24 [place] [address] [facility] [place] [address] Surgeon Gastroenterology 10/12/23 Body Worker Relationship Specialty Start Date End Date Cj Rivera CNP [address] [place] [phone] PCP - General Family Medicine 03/05/20 Body Worker Relationship Specialty Start Date End Date Cj Rivera CNP [address] [place] [phone] PCP - General Family Medicine 03/05/20 Body Worker Relationship Specialty Start Date End Date Cj Rivera CNP [address] [place] [phone] PCP - General Family Medicine 03/05/20 Care Team (unrecognized sect ion and content) Personnel Name: CJ RIVERA APRN-SPECIAL NEEDS TEACHER Address: Address: [address] [place] [address]- Care Team Personnel Name: CJ RIVERA APRN-SPECIAL NEEDS TEACHER Position: P4 Advanced Practice Nurse Med Service: Active Provider Member Role: Primary Care Physician Address: Address: [address] [place] [address] Care Team Related Persons Name: LIZZ DOCKERY Name: LIZZ DOCKERY Name: LIZZ DOCKERY Address: [address] [id number] Address: Home [address] [place], [place] [id number] [place] Address: Temporary [address] [place], [place] [phone] Care Team Personnel Name: CJ RIVERA MANAGER PROFESSIONAL DEVELOPMENT-SPECIAL NEEDS TEACHER Position: P4 Advanced Practice Nurse Med Service: Active Provider Member Role: Primary Care Physician Address: Address: [address] [place] [address] Care Team Related Persons Name: LIZZ DOCKERY Name: LIZZ DOCKERY Name: LIZZ DOCKERY Address: Alternate [address] [place], [place] [id number] Address: Home [address] [place], [place] [id number] [place] Address: Temporary [address] [place], [place] [id number] Care Team Personnel Name: CJ RIVERA APRN-SPECIAL NEEDS TEACHER Position: P4 Advanced Practice Nurse Med Service: Active Provider Member Role: Primary Care Physician Address: Address: [address] [place], [place] [address] Care Team Related Persons Name: LIZZ DOCKERY Name: LIZZ DOCKERY Name: LIZZ DOCKERY Address: Alternate [address] [place], [place] [id number] Address: Home [address] [place], [place] [id number] [place] Address: Temporary [address] [place], [place] [phone] Care Team Personnel Name: CJ RIVERA MANAGER PROFESSIONAL DEVELOPMENT-SPECIAL NEEDS TEACHER Position: P4 Advanced Practice Nurse Member Role: Primary Care Physician Address: Address: [address] [place] [address]- Name: ANGLE PUENTES DO Position: Resident Member Role: Resident Address: Address: [address] [place] [address] [place] [address]- Name: YESSICA DIAZ PA-C Position: ED Physician Hardwood Floor Finisher Member Role: ED PA Address: Address: [address] [place] [address] [place] [address]- Name: Chester Redmond RN Position: ED RN Member Role: ED RN Name: WAQAR BOYLE MD Position: ED Physician Member Role: Attending Physician Address: Address: [address] [place] [address] [place] [address]- Care Team Related Persons Name: LIZZ DOCKERY Name: LIZZ DOCKERY Name: LIZZ DOCKERY Address: Alternate [address] [place] [id number] Address: Home [address] [place], [place] [phone] [place] Address: Temporary [address] [place], [place] [phone] Care Team Personnel Name: CJ RIVERA MANAGER PROFESSIONAL DEVELOPMENT-SPECIAL NEEDS TEACHER Position: P4 Advanced Practice Nurse Member Role: Primary Care Physician Address: Address: [address] [facility] [place] [address]- Name: Stormy Salazar RN Position: AO RN Member Role: RN Name: SMITHA MARTÍNEZ MD Position: Resident Member Role: Resident Address: Address: [address] [place] [address]- [place] Name: YOANA WEAVER MD Position: ED Physician Member Role: ED Physician Address: Address: [facility] [address] [place] [address]- [place] Name: KAY Botello Position: AO RN Member Role: ED RN Care Team Related Persons Name: LIZZ DOCKERY Name: LIZZ DOCKERY Name: LIZZ DOCKERY Address: [address] [id number] Address: Home [address] [place], [place] [phone] [place] Address: Temporary [address] [place], [place] [phone] Care Team Personnel Name: CJ RIVERA MANAGER PROFESSIONAL DEVELOPMENT-SPECIAL NEEDS TEACHER Position: P4 Advanced Practice Nurse Member Role: Primary Care Physician Address: Address: [address] [place] [address]- Name: Dary Silveira Position: P3 Registration- Hydrographic Surveyor Name: MOLINA QUIROZ DO Position: ED Physician Member Role: Attending Physician Address: Address: [address] [facility] [place] [address]- [place] Name: Chester Redmond RN Position: ED RN Member Role: ED RN Name: KALE FLORES PAGeoC Position: ED Physician Hardwood Floor Finisher Member Role: ED PA Address: Address: [address] [place] [address]- [place] Name: RESHMA GAGE MD Position: Resident Member Role: Resident Address: Address: [address] [facility] [place] [address]- [place] Care Team Related Persons Name: LIZZ DOCKERY Name: LIZZ DOCKERY Care Team Personnel Name: CJ RIVERA MANAGER PROFESSIONAL DEVELOPMENT-SPECIAL NEEDS TEACHER Position: P4 Advanced Market Analysis Director Member Role: Primary Care Physician Address: Address: [address] Name: JULIANNE FLANNERY DO Position: Resident Member Role: Resident Address: Address: [facility] [address] [place] [address] Name: Thang Connors RN Position: RN Member Role: RN Name: COLTON BAE MD Position: ED Physician Member Role: Attending Physician Address: Address: [facility] [address] [place] [address] [address] [address] Care Team Related Persons Name: LIZZ DOCKERY Name: LIZZ DOCKERY Care Team Personnel Name: CJ RIVERA Position: P4 Advanced Market Analysis Director Member Role: Primary Care Physician Address: Address: [address] [place] [address] Name: JULIANNE FLANNERY DO Position: Resident Member Role: Resident Address: Address: [facility] [address] [place] [address] Name: ADINA WHITT MD Position: ED Physician Member Role: ED Physician Address: Address: [facility] [address] [place] [address] Care Team Related Persons Name: LIZZ DOCKERY [...] - Provider: Socorro Taylor RN)2100 (Due) pancrelipase (Fjd-Ttqx-Unzo) (Creon) 12,000-38,000 -60,000 unit per capsule 3 [...] Chapman RN)2030 (Due - Provider: Ivon Davey [facility]) lactulose 20 gram/30 mL oral [...] - Provider: Nay Chapman RN)2100 (Due) pancrelipase (Ppy-Gxdd-Ccmp) (Creon) 12,000-38,000 -60,000 unit per capsule 2 [...] Dey RN)1700 (Not Given - Provider: Hanna eDy RN - Reason: Patient/family refused) 0800 (Not [...] Chastity León MD)1755 (Given - Provider: Nay Chapman, KAY) valACYclovir (Valtrex) tablet 500 mg [...] For 1 dose 1649 (Given - Provider: Seelna Voss) fenofibrate (Triglide) tablet 160 mg 160 [...] Caroline Jacobo RN) 0829 (Given - Provider: Carlo Méndez RN) nystatin (Mycostatin) 100,000 unit/gram powder [...] - Provider: Carol Méndez RN)2230 (Due) pancrelipase (Usq-Azzd-Jkva) (Creon) 12,000-38,000 -60,000 unit per capsule 2 [...] per provider order due to BP) pancrelipase (Znp-Rycn-Evod) (Creon) 12,000-38,000 -60,000 unit per capsule 2 [...] Order)1700 (Dose Auto Held - Provider: Martha Mroe, MANAGER PROFESSIONAL DEVELOPMENT-SPECIAL NEEDS TEACHER) pantoprazole (ProtoNix) EC tablet 40 mg 40 [...] BE BASED ON THE PRIMARY CLINICAL RECORDS. [employer] [facility]. provides no warranty or guarantee of the accuracy or completeness of information in this document.
[2024-06-16 20:30] VITALS: BMI 40.6
[2024-06-16 20:36] VITALS: BP 126/74; PULSE 68; RESP 16; TEMP 37; O2SAT 96
[2024-06-16] MEDS: Acyclovir 200 MG Capsule 400 MG PO (20:51)
[2024-06-16] MEDS: Divalproex Sodium 250 MG Tablet PO (20:51)
[2024-06-16] MEDS: Benztropine Mesylate 0.5 MG TABLET PO (20:52)
[2024-06-16] MEDS: cloNIDine HCl 0.2 MG Tablet PO (20:52)
[2024-06-16] MEDS: Potassium Chloride Oral Tablet 20 MEQ PO (20:53)
[2024-06-16] MEDS: Venlafaxine XR 150 MG Capsule PO (20:53)
[2024-06-16] MEDS: Methenamine Hippurate 1 GM Tablet PO (20:53)
[2024-06-16] MEDS: Baclofen 10 MG Tablet PO (20:54)
[2024-06-16] MEDS: Pramipexole Di-HCl 0.25 MG Tablet PO (20:54)
[2024-06-16] MEDS: Fenofibrate 145 MG Tablet PO (20:55)
[2024-06-16] MEDS: Acetaminophen 500 MG Tablet 1000 MG PO (21:02)
[2024-06-16] MEDS: MELATONIN 10 MG TABLET 5 MG PO (21:02)
[2024-06-16 21:29] LABS: Bedside Glucose 149 mg/dL (74-106)
[2024-06-16] MEDS: traZODone 50 MG Tablet PO (22:38)
[2024-06-16] MEDS: Nicotine Polacrilex 2 MG GUM PO (22:38)
[2024-06-16] MEDS: Pantoprazole Sodium 40 MG Tablet PO (22:38)
[2024-06-16] MEDS: tiZANidine HCl 2 MG Tablet 4 MG PO (22:38)
[2024-06-16] MEDS: Lidocaine 5% Patch 1 PATCH TOPICAL (22:38)
[2024-06-16] MEDS: Ascorbic Acid 500 MG Tablet PO (22:38)
[2024-06-16 23:12] LABS: Partial Thromboplast Time 81.8 Seconds (24.1-36.2)
[2024-06-17] VITALS (9 sets, daily range): BP systolic 109–136; BP diastolic 60–77; PULSE 63–80; RESP 16–18; TEMP 36.2–36.8; O2SAT 92–97
[2024-06-17] MEDS: Acetaminophen 500 MG Tablet 1000 MG PO ×3 (04:19→23:35)
[2024-06-17] MEDS: Baclofen 10 MG Tablet PO (04:19)
[2024-06-17] MEDS: Nicotine Polacrilex 2 MG GUM PO ×3 (05:05→23:29)
[2024-06-17 06:05] LABS: Hematocrit 38.6 % (37-47); Hemoglobin 11.2 g/dL (12.0-15.0); Mean Corpuscular Hgb 26.4 pg (27.0-32.0); Mean Platelet Vol. 9.1 fl (6.2-12.0); Platelet Count 214 K/mm3 (150-450); RBC Distribution Width CV 16.2 % (11.6-14.6); RBC Distribution Width SD 53.8 fl (35.1-43.9); Red Blood Count 4.24 M/mm3 (4.2-5.4); White Blood Count 6.4 K/mm3 (4.4-11.0)
[2024-06-17 06:07] LABS: Scan Indicated on CBC? Y/N NO
[2024-06-17 06:21] LABS: International Normalized Ratio 1.8
[2024-06-17 06:22] LABS: Partial Thromboplast Time 58.3 Seconds (24.1-36.2)
[2024-06-17 06:38] LABS: AST(SGOT) 22 U/L (15-37); Alanine Aminotransfer ALT/SGPT 54 U/L (13-56); Albumin, Serum 3.4 g/dL (3.2-5.0); Alkaline Phosphatase 113 U/L (45-117); Anion Gap 8 (5-15); BUN 14 mg/dL (7-18); Calcium,Total 8.9 mg/dL (8.5-10.1); Chloride 105 mmol/L (98-107); Creatinine, Serum 0.87 mg/dL (0.55-1.02); EST Glomerular Filtration Rate 73 mL/min (>60); Est Glom Filt Rate - Afr Amer 88 mL/min (>60); Globulin 3.4 g/dL (2.2-4.2); Glucose 238 mg/dL (74-106); Potassium 3.8 mmol/L (3.5-5.1); Protein, Total 6.8 g/dL (6.4-8.2); Sodium Level 135 mmol/L (136-145)
[2024-06-17] MEDS: Ascorbic Acid 500 MG Tablet PO ×2 (08:39→17:40)
[2024-06-17] MEDS: Insulin Lispro 100 UNIT/ML INSULN.PEN 8 UNIT SC ×2 (08:53→13:35)
[2024-06-17] MEDS: Insulin Lispro 100 UNIT/ML INSULN.PEN SC ×2 (08:54→13:35)
[2024-06-17 09:15] LABS: Bedside Glucose 168 mg/dL (74-106)
[2024-06-17] MEDS: Morphine 4 MG/ML Syringe IV ×3 (11:56→23:35)
[2024-06-17] MEDS: Benztropine Mesylate 0.5 MG TABLET PO ×2 (12:05→23:23)
[2024-06-17] MEDS: Venlafaxine XR 150 MG Capsule PO (12:05)
[2024-06-17] MEDS: ARIPiprazole 10 MG Tablet PO (12:05)
[2024-06-17] MEDS: Divalproex Sodium 250 MG Tablet PO ×2 (12:05→23:28)
[2024-06-17] MEDS: Venlafaxine XR 75 MG Capsule PO (12:06)
[2024-06-17] MEDS: Potassium Chloride Oral Tablet 20 MEQ PO ×2 (12:08→23:22)
[2024-06-17] MEDS: Furosemide 40 MG Tablet PO (12:08)
[2024-06-17] MEDS: Pantoprazole Sodium 40 MG Tablet PO ×2 (12:09→23:34)
[2024-06-17] MEDS: Pramipexole Di-HCl 0.25 MG Tablet PO ×2 (12:09→23:24)
[2024-06-17] MEDS: Acyclovir 200 MG Capsule 400 MG PO ×2 (12:10→23:25)
[2024-06-17] MEDS: Insulin Glargine-YFGN 100 UNIT/ML Pen 20 UNIT SC (12:12)
[2024-06-17] MEDS: Metoprolol(XL)Succ 25 MG Tablet PO (12:14)
[2024-06-17 13:24] LABS: International Normalized Ratio 1.8; Prothrombin Time (Protime)PT. 20.9 SECONDS (11.7-14.9)
[2024-06-17 13:54] LABS: Partial Thromboplast Time 41.1 Seconds (24.1-36.2)
[2024-06-17 14:01] LABS: Bedside Glucose 199 mg/dL (74-106)
--- NOTE | 2024-06-17 14:03 | PCM.PN.HOSP ---
Reason for Visit Reason for Visit: Diagnoses Other pulmonary embolism without acute cor pulmonale (06/16/24) Dorsalgia, unspecified (06/16/24) Subjective Subjective Patient was seen and examined today, she continues to complain of sporadic low and mid back pain. It is not reproducible on palpation however. Patient states she does receive narcotics at times from her pain management physician as an outpatient. She requested to be given morphine as needed, she stated that she did not want to go home on any narcotics however. I gave the patient extra Coumadin this morning and rechecked her INR but it was still subtherapeutic, patient did not want to go on subcu Lovenox and wanted to stay on IV heparin. I will give additional warfarin this afternoon and recheck her INR tomorrow morning. Objective Data Objective Data Vital Signs: Vital Signs Temp Pulse Resp BP Pulse Ox O2 Del Method 98 F 80 18 130/70 H 92 Room Air 06/17/24 08:10 06/17/24 12:14 06/17/24 08:30 06/17/24 12:14 06/17/24 09:42 06/17/24 09:42 Oxygen Delivery Method Room Air Weight: 104.009 kg Body Mass Index (BMI) 40.6 Intake & Output: Intake and Output for Last 24 Hours 06/15/24 06/16/24 06/17/24 23:59 23:59 23:59 Intake Total 1101.73 / 1101.73 400 / 400 Balance 1101.73 / 1101.73 400 / 400 Lab / Micro Data 06/17/24 05:56 06/17/24 05:56 Labs: Laboratory Results - last 24 hr 06/16/24 15:21: Troponin I High Sens 5 06/16/24 21:08: POC Glucose 149 H 06/16/24 22:52: APTT 81.8 H 06/17/24 05:56: WBC 6.4, RBC 4.24, Hgb 11.2 L, Hct 38.6, MCV 91.0 D, MCH 26.4 L, MCHC 29.0 L D, RDW Std Deviation 53.8 H, RDW Coeff of Megan 16.2 H, Plt Count 214, MPV 9.1, PT 21.0 H, INR 1.8, APTT 58.3 H, Sodium 135 L, Potassium 3.8, Chloride 105, Carbon Dioxide 22.0, Anion Gap 8, BUN 14, Creatinine 0.87, Estim Creat Clear Calc 90.20, Est GFR (MDRD) Af Amer 88, Est GFR (MDRD) Non-Af 73, BUN/Creatinine Ratio 16.0, Glucose 238 H, Calcium 8.9, Total Bilirubin 0.20, AST 22, ALT 54, Alkaline Phosphatase 113, Total Protein 6.8, Albumin 3.4, Globulin 3.4, Albumin/Globulin Ratio 1.0 06/17/24 08:35: POC Glucose 168 H 06/17/24 12:31: PT 20.9 H, INR 1.8, APTT 41.1 H 06/17/24 13:32: POC Glucose 199 H Radiography Diagnostic Testing: Radiology Impression Chest CTA 06/16/24 12:24 IMPRESSION: 2 peripheral branches of the right pulmonary artery with nonocclusive emboli/pulmonary embolism 1. Single nonocclusive thrombus in the peripheral branch supplying the right upper lobe see image #156/219 series 2. Nonocclusive thin wispy of thrombus adherent to the medial wall of the second peripheral branch supplying the middle one third aspect of the right upper lobe see image #154/219 series 2. No additional peripheral artery emboli. Normal bilateral right and left main pulmonary arteries and normal pulmonary trunk. No demonstrated heart strain or chamber enlargement or pericardial effusion. Electronically Signed: Taurus Acevedo MD at 15:27 EDT Reading Location ID and State: [address] [place] [address] , Service support , ADDENDUM: 06/16/24 6919 IMPRESSION: 2 peripheral branches of the right pulmonary artery with nonocclusive emboli/pulmonary embolism 1. Single nonocclusive thrombus in the peripheral branch supplying the right upper lobe see image #156/219 series 2. Nonocclusive thin wispy of thrombus adherent to the medial wall of the second peripheral branch supplying the middle one third aspect of the right upper lobe see image #154/219 series 2. No additional peripheral artery emboli. Normal bilateral right and left main pulmonary arteries and normal pulmonary trunk. No demonstrated heart strain or chamber enlargement or pericardial effusion. N.B. : The above Results were Read Back by Taurus Acevedo MD to Campos Rosales DO, and understanding confirmed on 06/16/2024 15:32:36 (ET). Electronically Signed: Taurus Acevedo MD at 15:27 EDT , ADDENDUM: 06/16/24 1552 IMPRESSION: undefined Abdomen/Pelvis CT 06/16/24 12:25 IMPRESSION: 1. No acute or significant process of the abdomen and pelvis. Electronically Signed: Taurus Acevedo MD at 15:44 EDT , Physical Exam Const alert, oriented x3 and no apparent distress Constitutional Narrative: Patient is morbidly obese General Appearance: cooperative, well kempt and well developed Orientation / Consciousness: awake, oriented to person, oriented to place and oriented to time HEENT normocephalic, head/scalp atraumatic and moist oral mucous membranes Eyes PERRL, EOMs intact bilaterally and conjunctivae normal Neck supple, no JVD, thyroid normal and no carotid bruits General: trachea midline Resp normal respiratory effort, no retractions, no use of accessory muscles and clear to auscultation bilaterally Auscultation: Negative for rales, rhonchi or wheezes Cardio regular rate, regular rhythm, S1 normal heart sound, S2 normal heart sound, no murmurs, no rub and no gallops GI normal to inspection, nondistended, normoactive bowel sounds, soft to palpation, non-tender and non-distended Extremity no clubbing, cyanosis or edema Skin no rashes or lesions noted General Skin Exam: no breakdown Neuro oriented x3, CN's II-XII intact bilaterally, moves all extremities, no focal motor deficits and no sensory deficits noted Sensorium / Orientation: awake and alert Speech: speech normal Psych affect normal Assessment & Plan Assessment/Plan (1) Intractable back pain: PLAN: Plan 1. Intractable back pain-patient will remain on IV morphine for now and her home muscle relaxants, I am limited and cannot use Toradol due to her anticoagulation. I have decided to get plain lumbar films and thoracic films today. #2 pulmonary emboli-patient is not hypoxic, again I have elected to give her extra warfarin this afternoon and I will recheck her INR tomorrow morning. Patient remains on a heparin drip at this time #3 chronic pain syndrome due to chronic pancreatitis-complicates care, management, recovery, and prognosis #4 type 2 diabetes-patient's blood sugars will be monitored, sliding scale insulin will be administered as needed, patient does not want to be given corticosteroids for her back pain due to her diabetes. #5 morbid obesity-complicates care, management, recovery, and prognosis #6 chronic depression-patient is on Effexor #7 factor V Leiden deficiency-again patient is on warfarin currently Total clinical time spent by myself addressing the patient's medical issues, reviewing all her data, and collaborating with patient's care team: 35 minutes Charges/Coding Visit Charges Inpatient E&M: 32291 Subs Hosp L2
[2024-06-17] MEDS: Heparin Injection (Vial) 5,000 UNIT/ML VIAL IV (14:32)
[2024-06-17] MEDS: HEPARIN/D5w 25,000 UNITS 25,000 UNITS/250 ML IV.SOLN. 14 UNITS CONT INF (14:35)
--- NOTE | 2024-06-17 14:47 | NURSING ---
0179 Dr Pepper texted about labs- PT/INR, new orders given. patient aware of new orders, will stay here tonight, not going home. Nikko Buchanan RN
--- NOTE | 2024-06-17 14:50 | NURSING ---
1665 asked patient about Zarelto use, patient no longer taking med. Dr Hall informed. Nikko Buchanan RN
--- NOTE | 2024-06-17 15:35 | RAD_ITS ---
EXAM: XR THORACIC SPINE, 3 VIEWS CLINICAL INDICATION: back pain TECHNIQUE: Frontal, lateral and swimmer''s views of the thoracic spine. COMPARISON: No relevant prior studies available. FINDINGS: VERTEBRAE: Age indeterminate compression deformity upper thoracic spine. No spondylolisthesis. Preservation of the normal thoracic kyphosis. No significant facet arthropathy. DISC SPACES: Unremarkable. Disc spaces are maintained. TUBES, LINES AND DEVICES: Right ported catheter. OTHER FINDINGS: Post cystectomy changes. RAD/Thoracic Spine 3 Views IMPRESSION: Age indeterminate compression deformity upper thoracic spine. Electronically Signed: Naga Morton MD at 16:10 EDT ,
--- NOTE | 2024-06-17 15:35 | RAD_ITS ---
STUDY: X-RAY - LUMBAR SPINE REASON FOR EXAM: Female, 48 years old. back pain TECHNIQUE: XR Spine Lumbar 2 Views COMPARISON: None FINDINGS: Normal lumbar lordosis. There is no substantial scoliosis. There is a normal alignment of the vertebrae. Normal vertebral bodies and endplates. Normal disc space heights. IVC filter in place. Recommend correlation with IVC management team. The soft tissue structures are unremarkable. RAD/Lumbar Spine 2 or 3 Views IMPRESSION: There are no acute findings. Electronically Signed: Naga Morton MD at 15:54 EDT ,
[2024-06-17] MEDS: tiZANidine HCl 2 MG Tablet 4 MG PO (16:20)
[2024-06-17 18:03] LABS: Bedside Glucose 117 mg/dL (74-106)
[2024-06-17 22:07] LABS: Partial Thromboplast Time 76.2 Seconds (24.1-36.2)
[2024-06-17] MEDS: Ondansetron 4 MG/2 ML Vial IV (22:40)
[2024-06-17] MEDS: Methenamine Hippurate 1 GM Tablet PO (23:25)
[2024-06-17] MEDS: Fenofibrate 145 MG Tablet PO (23:25)
[2024-06-17] MEDS: cloNIDine HCl 0.2 MG Tablet PO (23:27)
[2024-06-17] MEDS: 0.9% Saline Lock 10 ML Syringe IV (23:35)
[2024-06-17] MEDS: traZODone 50 MG Tablet PO (23:37)
[2024-06-17] MEDS: MELATONIN 10 MG TABLET 5 MG PO (23:37)
[2024-06-18 02:10] VITALS: BP 117/63; PULSE 66; RESP 16; TEMP 36.2; O2SAT 98
[2024-06-18 04:10] LABS: Partial Thromboplast Time 100.7 Seconds (24.1-36.2)
[2024-06-18] MEDS: Acetaminophen 500 MG Tablet 1000 MG PO ×2 (04:53→17:25)
[2024-06-18] MEDS: Morphine 4 MG/ML Syringe IV ×3 (04:54→17:25)
[2024-06-18 05:58] LABS: International Normalized Ratio 2.7; Prothrombin Time (Protime)PT. 28.3 SECONDS (11.7-14.9)
[2024-06-18 06:52] VITALS: O2SAT 96
--- NOTE | 2024-06-18 07:36 | NURSING ---
Heparin gtt DC. Pt is updated and she resting in bed.
[2024-06-18] MEDS: Insulin Lispro 100 UNIT/ML INSULN.PEN SC (08:12)
[2024-06-18] MEDS: Insulin Lispro 100 UNIT/ML INSULN.PEN 8 UNIT SC (08:13)
[2024-06-18] MEDS: Ascorbic Acid 500 MG Tablet PO (08:14)
[2024-06-18 09:00] VITALS: PULSE 67; RESP 16
--- NOTE | 2024-06-18 09:54 | DCINST_ITS ---
Discharge Instructions Diet Discharge Diet: 1800 Calorie Control Diet Activity Discharge Activity: Return to Normal Activity Weight Bearing Status: Full weight bearing Follow Up Care Test Results: Test results from this visit will be discussed in further detail at your follow- up appointment, if applicable. Discharge Plan Admission Admit Date/Time: 06/16/24 18:40 Primary Reason for Your Visit: pulmonary embolism, back pain Attending Provider: Meño Pepper Primary Care Provider: Rin Rivera BUILDINGS AND GROUNDS SUPERINTENDENT Consulting Providers: Curtis Alonzo Instructions Additional Instructions / Restrictions: Have your INR rechecked in 2-3 days Discharge Orders/Prescriptions Prescriptions: New gsvpjagvrc-zvuzipuxxgopl-qtyo [Fioricet] 50-300-40 mg capsule 1 cap PO Q6H PRN (Reason: pain) Qty: 20 0RF Rx Instructions: one every six hours as needed for back discomfort Continued omeprazole 40 mg capsule,delayed release(DR/EC) 40 mg PO BID venlafaxine 75 mg capsule,extended release 24hr 75 mg PO QDAY furosemide 40 MG tablet 40 mg PO DAILY valacyclovir [Valtrex] 500 MG tablet 500 mg PO DAILY Linzess 290 mcg capsule 290 mcg PO DAILY methenamine hippurate [Hiprex] 1 gram Tablet 1 g PO QHS venlafaxine [Effexor XR] 150 mg Capsule,Extended Release 24hr 150 mg PO DAILY cholecalciferol (vitamin D3) 1,250 mcg (50,000 unit) capsule 50,000 unit PO FR aripiprazole 10 mg tablet 10 mg PO DAILY benztropine 0.5 mg tablet 0.5 mg PO BID divalproex 250 mg tablet,delayed release (DR/EC) 250 mg PO Q12H clonidine HCl 0.2 mg tablet 0.2 mg PO QHS metoprolol succinate 25 mg tablet extended release 24 hr 25 mg PO DAILY promethazine 25 mg tablet 25 mg PO TID PRN (Reason: nausea and vomiting) 7 Days Qty: 21 0RF fenofibrate nanocrystallized 145 mg tablet 145 mg PO QHS melatonin 10 mg tablet 5 mg PO QHS PRN (Reason: sleep) (DME) pen needle, diabetic 31 gauge x 1/3 needle See Rx Instructions .Route Qty: 100 0RF Rx Instructions: As directed potassium chloride 20 mEq tablet extended release 20 meq PO TID nitrofurantoin monohyd/m-cryst [Macrobid] 100 mg capsule 100 mg PO DAILY PRN (Reason: after sex) lactulose 10 gram/15 mL solution 15 ml PO BID PRN (Reason: constipation) acetaminophen 500 mg Tablet 1,000 mg PO Q8 Qty: 0 0RF insulin aspart U-100 [Novolog FlexPen U-100 Insulin] 100 unit/mL (3 mL) insulin pen 18 unit subcut TID insulin glargine U-300 conc [Toujeo Max U-300 SoloStar] 300 unit/mL (3 mL) insulin pen 22 unit subcut DAILY tizanidine 4 mg tablet 4 mg PO Q8H PRN PRN (Reason: muscle spasm) warfarin 2.5 mg tablet 2.5 mg PO SUMOFRSA clindamycin phosphate 1 % gel 1 applic topical BID baclofen 10 mg tablet 10 mg PO TID ropinirole 0.5 mg tablet 0.5 mg PO BID warfarin 2.5 mg tablet 3.75 mg PO WE Caldesene 15-81 % powder topical BID Referrals / Follow Up: Rin Rivera BUILDINGS AND GROUNDS SUPERINTENDENT, BUILDINGS AND GROUNDS SUPERINTENDENT-C [Primary Care Provider] - Within 1 Month Disposition Disposition (needs filled in before D/C Order can be placed): Home, Self Care
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
[2024-06-18] MEDS: Insulin Glargine-YFGN 100 UNIT/ML Pen 20 UNIT SC (10:46)
[2024-06-18] MEDS: Pantoprazole Sodium 40 MG Tablet PO (10:47)
[2024-06-18] MEDS: Acyclovir 200 MG Capsule 400 MG PO (10:47)
[2024-06-18] MEDS: Furosemide 40 MG Tablet PO (10:47)
[2024-06-18] MEDS: tiZANidine HCl 2 MG Tablet 4 MG PO (10:47)
[2024-06-18] MEDS: ARIPiprazole 10 MG Tablet PO (10:48)
[2024-06-18] MEDS: Divalproex Sodium 250 MG Tablet PO (10:48)
[2024-06-18] MEDS: Potassium Chloride Oral Tablet 20 MEQ PO (10:49)
[2024-06-18] MEDS: Pramipexole Di-HCl 0.25 MG Tablet PO (10:49)
[2024-06-18] MEDS: Venlafaxine XR 75 MG Capsule PO ×2 (10:49→12:02)
[2024-06-18 10:50] VITALS: PULSE 80
[2024-06-18] MEDS: Metoprolol(XL)Succ 25 MG Tablet PO (10:50)
[2024-06-18] MEDS: Benztropine Mesylate 0.5 MG TABLET PO (10:50)
--- NOTE | 2024-06-18 11:12 | CASEMGMT ---
KAY LAWSON Assessment: Face to Face with pt for initial transition planning/care coordination assessment. KAY LAWSON introduced self and role at [facility], pt voices understanding and consents to assessment. Pt is A&O x4 and answers all questions appropriately at this time. Pt sitting up in bed in no distress. Care providers, pharmacy, and demographics verified/updated. Admitting Dx: low risk PE with subtherapeutic INR Strata Score: 4 PCP:Rin Rivera EMBEDDED SOFTWARE MANAGER Specialists:Jim pain mgmt ; shayne Iqbal; [facility] Preferred Pharmacy: [facility] Insurance: [employer] Prescription Benefit: yes LNOK: Lizz Patricia, mother; Giancarlo Stevens, sig other Living Arrangements: Pt lives with sig other in a single story home with 3 steps to enter. Pt reports she is I in ADLs. Pt sig other gets groceries and does laundry. Pt does cooking. Pt denies concerns at home. Transportation: Pt drives but states not much. Pt sig other and mother transport her to medical appts. DME:CGM and B[employer] with sufficient supply of strips, lancets, sensors; INR machine HHC/SNF: Denies hx of Pt states no concerns with going home at time of dc. Pt states she checks her own INR and reports to the warfarin clinic. Pt states no further concerns/needs. CM to follow. Advised pt to ask CM if any further question/concerns/needs arise, voices understanding. Pt Goal: Home Plan: Home Saul VILLANUEVA CM
[2024-06-18 11:48] LABS: Bedside Glucose 101 mg/dL (74-106)
[2024-06-18] MEDS: 0.9% Saline Lock 10 ML Syringe IV ×2 (12:01→17:25)
[2024-06-18] MEDS: Ondansetron 4 MG/2 ML Vial IV (12:01)
[2024-06-18] MEDS: Venlafaxine XR 150 MG Capsule PO (12:23)
--- NOTE | 2024-06-18 13:59 | CHAPLAIN ---
Type of Pastoral Visit _x__ Initial Visit ___ Follow-up Visit ___ On-call Visit ___ General Patient Visit ___ Spiritual Assessment ___ Family Conference ___ Bereavement ___ Rapid Response ___ Code Blue ___ Other (describe below) Pastoral Care Referral From _x__ Patient ___ Family ___ Nurse ___ Physician ___ Director Of Adult Epilepsy ___ Currency Machine Operator ___ Other (describe below) Sacrament/Intervention _x__ Active listening ___ Anointing ___ Sikhism ___ Bereavement ___ Communion _x__ Kathleen exploration ___ _x__ Life review _x__ Prayer ___ Reconciliation ___ Sacrament of Sick _x__ Supportive presence ___ Wedding ___ Other (describe below) Pastoral Comments 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 and immediately tells her perspective of this illness with some tears and anger; pt is frustrated about not getting well over the past two months and with insurance issues; pt is unhappy about medical care these days and lack of understanding about her pain and suffering; pt gives her life history and asks questions of a spiritual nature; lots of listening, affirming, sympathizing, and offering of another perspective; gave patient affirmation on seeking God in prayer; patient gave attention to the thoughts shared with her; pt asks for a prayer; pt is also encouraged to remember what is positive in her life and consider what is good so her spirits can be lifted
[2024-06-18 16:44] LABS: Bedside Glucose 178 mg/dL (74-106)
[2024-06-18 17:52] VITALS: BP 120/100; PULSE 70; RESP 18; TEMP 36.3; O2SAT 97
== END 2024-06-18 17:51 | disposition home or self-care (01) | DRG 176 ==
LOC: ED 12:21 → MS3 19:19
PROVIDERS: Admitting Provider Hospitalist; Emergency Provider Surgery; PCP Nurse Practitioner Family; Referring Provider Hospitalist; Visit Provider Internal Medicine
DX: I26.99 Other pulmonary embolism without acute cor pulmonale (principal); D68.2 Hereditary deficiency of other clotting factors; Z68.41 Body mass index [BMI] 40.0-44.9, adult; K86.1 Other chronic pancreatitis; E11.40 Type 2 diabetes mellitus with diabetic neuropathy, unspecified; G40.909 Epilepsy, unspecified, not intractable, without status epilepticus; F32.A Depression, unspecified; I10 Essential (primary) hypertension; E66.01 Morbid (severe) obesity due to excess calories; F41.9 Anxiety disorder, unspecified; Z79.4 Long term (current) use of insulin; F17.200 Nicotine dependence, unspecified, uncomplicated; E78.5 Hyperlipidemia, unspecified; I25.10 Atherosclerotic heart disease of native coronary artery without angina pectoris; K21.9 Gastro-esophageal reflux disease without esophagitis; M54.50 Low back pain, unspecified; Z90.710 Acquired absence of both cervix and uterus; Z86.718 Personal history of other venous thrombosis and embolism; Z79.2 Long term (current) use of antibiotics; G89.4 Chronic pain syndrome
CPT/HCPCS: 36415; 36591; 71275; 72072; 72100; 74177; 80053; 81001; 82962; 83605; 83690; 84484; 85025; 85027; 85610; 85730; 93005; 99285; 99406; J7030; Q9967; A4216; J2405

== ENCOUNTER 2024-06-19 15:28 | Emergency (ER) | payer MEDICARE, MEDICAID, SELFPAY ==
[2024-06-19 15:28] VITALS: BP 111/94; PULSE 95; RESP 19; TEMP 37.1; O2SAT 95; BMI 40.8
[2024-06-19] MEDS: diazePAM 5 MG Tablet PO (16:06)
[2024-06-19] MEDS: HYDROmorphone 1 MG/ML Syringe IM (16:06)
--- NOTE | 2024-06-19 16:15 | ED.VIS.BACK ---
HPI History of Present Illness Chief Complaint: Back Narrative Narrative: Chief complaint and HPI: Thoracic upper back pain. 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 Patient was just seen in our emergency department on 06/16. At that time she was endorsing the same upper thoracic back pain. She was diagnosed with PE and admitted to the hospital for intractable back pain. At that time they found the age-indeterminate compression deformity. Patient was just discharged home on 06/18 with follow-up with orthopedics. She has an appointment coming up. She was discharged home on muscle relaxers. Patient is scheduled to see her pain management tomorrow. Patient states that her same upper thoracic back pain worsened today. She denies any other complaints. Denies any new changes or falls. Review of systems: See HPI Medications: As listed on the chart Allergies: As listed on the chart PFSH: Per chart Vital signs: As listed on the chart. Reviewed. Physical exam: Gen: A&O x3, NAD Head: Normocephalic, atraumatic Eyes: No sclera icterus, conjunctiva clear ENT: Moist mucous membranes Neck: Trachea midline, No JVD CV: RRR, no murmurs, no peripheral edema Resp: Lungs CTA BL, no w/r/c GI: Abd soft, non-distended, non-tender, no r/r/g Musc: Full ROM, no deformity, tender to palpation in the right upper thoracic spine the course bonds with her age-indeterminate compression deformity-seen tenderness that she had on previous exam Skin: Warm, dry Neuro: Alert, oriented, grossly intact, sensation intact Psych: Cooperative, appropriate mood and affect [facility] Medical History (Updated 06/19/24 @ 16:[address] Campos Rosales DO) Diabetes Chronic pain Pancreatitis GI bleed Pulmonary embolism Smoker Acute on chronic pancreatitis Pancreatitis Chronic constipation Vitamin D deficiency Depression GERD (gastroesophageal reflux disease) DVT (deep venous thrombosis) Stroke/cerebrovascular accident Epilepsy Substance abuse History of CVA (cerebrovascular accident) Seizure disorder Presence of IVC filter Anxiety History of pulmonary embolus (PE) Factor V Leiden mutation Hyperlipidemia Hypertension Home Medications ?Medication ?Instructions ?Recorded ?Last Taken ?Type furosemide 40 mg tablet 40 mg PO DAILY water pill 09/10/16 06/16/24 History valacyclovir 500 mg tablet 500 mg PO DAILY herpes 10/25/18 06/16/24 History (Valtrex) linaclotide 290 mcg capsule 290 mcg PO DAILY bowels 05/28/21 06/16/24 History (Linzess) methenamine hippurate 1 gram 1 g PO QHS bladder infections 12/03/21 06/16/24 History tablet (Hiprex) venlafaxine 150 mg 150 mg PO DAILY mood 12/03/21 06/16/24 History capsule,extended release 24 hr (Effexor XR) cholecalciferol (vitamin D3) 1,250 50,000 unit PO FR supplement 02/05/23 06/15/24 History mcg (50,000 unit) capsule omeprazole 40 mg capsule,delayed 40 mg PO BID 02/23/23 06/16/24 History release fenofibrate nanocrystallized 145 145 mg PO QHS cholesterol 05/07/23 06/15/24 History mg tablet aripiprazole 10 mg tablet 10 mg PO DAILY MOOD 06/23/23 06/16/24 History benztropine 0.5 mg tablet 0.5 mg PO BID mood 06/23/23 06/16/24 History divalproex 250 mg tablet,delayed 250 mg PO Q12H 06/23/23 06/16/24 History release clonidine HCl 0.2 mg tablet 0.2 mg PO QHS 07/22/23 06/15/24 History metoprolol succinate 25 mg 25 mg PO DAILY heart health 07/22/23 06/16/24 History tablet,extended release 24 hr melatonin 10 mg tablet 5 mg PO QHS PRN sleep 08/17/23 06/15/24 History pen needle, diabetic 31 gauge x #100 ea 08/18/23 Unknown Rx 1/3 promethazine 25 mg tablet 25 mg PO TID PRN nausea and 10/23/23 06/16/24 Rx vomiting 7 days #21 tabs venlafaxine 75 mg capsule,extended 75 mg PO QDAY mood 01/19/24 06/16/24 History release 24 hr lactulose 10 gram/15 mL oral 15 ml PO BID PRN constipation 01/26/24 Unknown History solution nitrofurantoin 100 mg PO DAILY PRN after sex 01/26/24 Unknown History monohydrate/macrocrystals 100 mg capsule (Macrobid) potassium chloride 20 mEq 20 meq PO TID supplement 01/26/24 06/16/24 History tablet,extended release acetaminophen 500 mg tablet 1,000 mg (2 x 500 mg) PO Q8 #0 tabs 01/30/24 06/16/24 Rx insulin aspart U-100 100 unit/mL 18 unit subcut TID blood sugar 02/04/24 06/16/24 History (3 mL) subcutaneous pen (Novolog FlexPen U-100 Insulin aspart) insulin glargine U-300 conc 300 22 unit subcut DAILY diabetes 02/04/24 06/15/24 History unit/mL (3 mL) subcutaneous pen (Toujeo Max U-300 SoloStar) baclofen 10 mg tablet 10 mg PO TID 06/16/24 06/16/24 History clindamycin phosphate 1 % topical 1 applic topical BID 06/16/24 Unknown History gel ropinirole 0.5 mg tablet 0.5 mg PO BID 06/16/24 06/16/24 History tizanidine 4 mg tablet 4 mg PO Q8H PRN PRN muscle spasm 06/16/24 06/16/24 History warfarin 2.5 mg tablet 2.5 mg PO SUMOFRSA 06/16/24 06/16/24 History warfarin 2.5 mg tablet 3.75 mg PO TUWETH 06/16/24 06/14/24 History zinc oxide 15 %-corn starch 81 % ea topical BID AFFECTED AREA 06/16/24 Unknown History topical powder (Caldesene) oulaihiltw-ppzhywtpbbaet-cnehwexa 1 cap PO Q6H PRN pain #20 caps 06/18/24 Unknown Rx 50 mg-300 mg-40 mg capsule (Fioricet) cyclobenzaprine 5 mg tablet 5 mg PO TID PRN muscle spasm 3 06/19/24 Unknown Rx days #9 tabs Allergy/AdvReac Type Severity Reaction Status Date / Time gabapentin (From Neurontin) Allergy Rash Verified 06/16/24 11:45 Penicillins Allergy Rash Verified 06/16/24 11:45 Sulfa (Sulfonamide Allergy Rash Verified 06/16/24 11:45 Antibiotics) topiramate (From Topamax) AdvReac Mild twitching Verified 06/16/24 11:45 of eyelids Family History Mother Hypertension Hyperlipidemia Father Heart disease Surgical History H/O: History of embolic filter insertion History of appendectomy Hx of cholecystectomy History of hysterectomy Social History household members: none Smoking Status: Current every day smoker tobacco type: e-cigarettes alcohol intake: former substance use type: marijuana EXAM Physical Exam Const Vital Signs: 06/19/24 15:28 06/19/24 16:33 Temperature 98.8 F 98.8 F Temperature Source Oral Pulse Rate 95 95 Respiratory Rate 19 H 19 H Blood Pressure 111/94 H 111/94 H Blood Pressure Mean 99 99 Pulse Ox 95 95 Oxygen Delivery Method Room Air MDM MDM MDM Narrative Medical decision making narrative: 48-year-old female with chronic pain/pancreatitis follows with pain management, history of PE/DVTs on warfarin, and recent diagnosis of upper thoracic age-indeterminate compression deformity presents for evaluation of upper thoracic back pain. This is the same pain that she was recently admitted for. Compression deformity was found at that time. Patient is scheduled to see orthopedics for her back pain. She is scheduled to see pain management tomorrow. At this point in time I do not think any further imaging or laboratory workup is needed as she has no new symptoms or complaint other than her recurrent back pain. Back pain is similar to previous presentation. Patient states she takes muscle relaxers at home but does not feel like this works. Patient will be given IM Dilaudid as well as Valium for pain control here in the emergency department. Patient was educated that she needs to stop taking her muscle relaxers at home that she feels that are not working and instead will prescribe her with Flexeril. She is to follow-up with orthopedics and her pain management doctor tomorrow. She confirmed understanding. Return precautions explained. Patient stable to discharge home. Patient's pain improved . Patient was educated not to drive or operate heavy machinery while taking muscle relaxer. She confirmed understand the plan. Patient not driving home today. Impression: 1. Upper thoracic back pain 2. Age-indeterminate upper thoracic compression deformity Discharge Plan Triage Chief Complaint: Back ED Provider: Campos Rosales Dx/Rx/DC Orders Clinical Impression: Back pain Instructions: Compression Fx Prescriptions: New cyclobenzaprine 5 mg tablet 5 mg PO TID PRN (Reason: muscle spasm) 3 Days Qty: 9 0RF No Action omeprazole 40 mg capsule,delayed release(DR/EC) 40 mg PO BID venlafaxine 75 mg capsule,extended release 24hr 75 mg PO QDAY furosemide 40 MG tablet 40 mg PO DAILY valacyclovir [Valtrex] 500 MG tablet 500 mg PO DAILY Linzess 290 mcg capsule 290 mcg PO DAILY methenamine hippurate [Hiprex] 1 gram Tablet 1 g PO QHS venlafaxine [Effexor XR] 150 mg Capsule,Extended Release 24hr 150 mg PO DAILY cholecalciferol (vitamin D3) 1,250 mcg (50,000 unit) capsule 50,000 unit PO FR aripiprazole 10 mg tablet 10 mg PO DAILY benztropine 0.5 mg tablet 0.5 mg PO BID divalproex 250 mg tablet,delayed release (DR/EC) 250 mg PO Q12H clonidine HCl 0.2 mg tablet 0.2 mg PO QHS metoprolol succinate 25 mg tablet extended release 24 hr 25 mg PO DAILY promethazine 25 mg tablet 25 mg PO TID PRN (Reason: nausea and vomiting) 7 Days Qty: 21 0RF fenofibrate nanocrystallized 145 mg tablet 145 mg PO QHS melatonin 10 mg tablet 5 mg PO QHS PRN (Reason: sleep) (DME) pen needle, diabetic 31 gauge x 1/3 needle See Rx Instructions .Route Qty: 100 0RF Rx Instructions: As directed potassium chloride 20 mEq tablet extended release 20 meq PO TID nitrofurantoin monohyd/m-cryst [Macrobid] 100 mg capsule 100 mg PO DAILY PRN (Reason: after sex) lactulose 10 gram/15 mL solution 15 ml PO BID PRN (Reason: constipation) acetaminophen 500 mg Tablet 1,000 mg PO Q8 Qty: 0 0RF insulin aspart U-100 [Novolog FlexPen U-100 Insulin] 100 unit/mL (3 mL) insulin pen 18 unit subcut TID insulin glargine U-300 conc [Toujeo Max U-300 SoloStar] 300 unit/mL (3 mL) insulin pen 22 unit subcut DAILY tizanidine 4 mg tablet 4 mg PO Q8H PRN PRN (Reason: muscle spasm) warfarin 2.5 mg tablet 2.5 mg PO SUMOFRSA clindamycin phosphate 1 % gel 1 applic topical BID baclofen 10 mg tablet 10 mg PO TID ropinirole 0.5 mg tablet 0.5 mg PO BID warfarin 2.5 mg tablet 3.75 mg PO Caldesene 15-81 % powder topical BID lidfjwibnc-hsekcidrmvbld-bheo [Fioricet] 50-300-40 mg capsule 1 cap PO Q6H PRN (Reason: pain) Qty: 20 0RF Rx Instructions: one every six hours as needed for back discomfort Primary Care Provider: Rin Rivera NP Referrals: Rin Rivera NP, [facility] [Primary Care Provider] - 3-5 Days Activity Restrictions/Additional Instructions: Keep your orthopedic and pain management appointments. Stop taking your home muscle relaxers instead take the new 1. Do not drive or operate heavy machinery while taking these. Print Language: Frisian Disposition Disposition: Home, Self Care Discharge Date/Time: 06/19/24 16:34
[2024-06-19 16:33] VITALS: BP 111/94; PULSE 95; RESP 19; TEMP 37.1; O2SAT 95
== END 2024-06-19 16:34 | disposition home or self-care (01) ==
PROVIDERS: Emergency Provider Surgery; PCP Nurse Practitioner Family; Visit Provider Surgery
DX: M51.84 Other intervertebral disc disorders, thoracic region (principal); K86.1 Other chronic pancreatitis; E11.9 Type 2 diabetes mellitus without complications; Z79.4 Long term (current) use of insulin; M43.9 Deforming dorsopathy, unspecified; Z86.718 Personal history of other venous thrombosis and embolism; G89.29 Other chronic pain; E78.5 Hyperlipidemia, unspecified; I10 Essential (primary) hypertension; Z79.01 Long term (current) use of anticoagulants; D68.51 Activated protein C resistance; K21.9 Gastro-esophageal reflux disease without esophagitis; Z79.899 Other long term (current) drug therapy; F17.290 Nicotine dependence, other tobacco product, uncomplicated
CPT/HCPCS: 96372; 99282

== ENCOUNTER 2024-07-02 05:41 | Emergency (ER) | payer MEDICARE, SELFPAY ==
[2024-07-02 05:42] VITALS: BP 163/105; PULSE 115; RESP 22; TEMP 37; O2SAT 98; BMI 42.5
--- NOTE | 2024-07-02 05:53 | CT_ITS ---
EXAM: CT ABDOMEN AND PELVIS WITH INTRAVENOUS CONTRAST CLINICAL INDICATION: diffuse abd pain TECHNIQUE: Helically acquired images were obtained of the abdomen and pelvis with intravenous contrast. This CT exam was performed using one or more of the following dose reduction techniques: automated exposure control, adjustment of the mA and/or kV according to patient size, and/or use of iterative reconstruction technique. CONTRAST: IV 100mL Isovue-370 RADIATION DOSE: CTDIvol = 14.96 mGy, DLP = 1238.61 mGy-cm COMPARISON: CT abdomen and pelvis 06/16/2024 FINDINGS: LOWER THORAX: Unremarkable. Lung bases are clear. No cardiomegaly. No significant pericardial effusion. ABDOMEN: LIVER: Hepatomegaly. GALLBLADDER AND BILE DUCTS: Cholecystectomy. No intra- or extrahepatic biliary ductal dilation. PANCREAS: Inflammation/stranding adjacent to the pancreas and tracking inferiorly. No focal cystic or solid mass. SPLEEN: Unremarkable. Normal size without focal cystic or solid mass. ADRENALS: Unremarkable. No nodules. KIDNEYS AND URETERS: Unremarkable. Normal renal size and position. No hydronephrosis. STOMACH AND BOWEL: Unremarkable. No stomach or bowel distention. No focal inflammatory change. PELVIS: APPENDIX: No evidence of acute appendicitis. BLADDER: Unremarkable. REPRODUCTIVE: Hysterectomy. ABDOMEN and PELVIS: INTRAPERITONEAL SPACE: Unremarkable. No ascites or other fluid collection. No free air. BONES/JOINTS: Unremarkable. No suspicious lytic or blastic abnormality. SOFT TISSUES: Unremarkable. No discrete abdominal or pelvic wall hernia. VASCULATURE: IVC filter. Recommend determining if there is a management plan in place for this IVC filter. If not, then recommend referral to an interventional radiologist on a nonemergent basis for evaluation. Abdominal aorta is non-dilated. LYMPH NODES: Unremarkable. No enlarged lymph nodes. CT/Abdomen/Pelvis W IV Cont ONLY IMPRESSION: Inflammation/stranding adjacent to the pancreas and tracking inferiorly. Findings likely indicate acute pancreatitis. No organized fluid collection identified. Electronically Signed: Naga Lucio MD at 7:57 EDT ,
--- NOTE | 2024-07-02 05:55 | ED.VIS.GI ---
HPI HPI - GI History of Present Illness Chief Complaint: Abd Pain Informant: patient Abdominal Pain/Flank Pain Onset: Days Context: Gradual Onset Timing: Continuous Quality: Sharp Location: Diffuse and Epigastric Current Severity: Moderate Maximum Severity: Moderate Worsened by: Nothing Relieved by: Nothing Nausea/Vomiting/Emesis GI Symptom: Positive for Nausea and Vomiting Severity: Mild Diarrhea/Melena/Hematochezia GI Symptom: Negative for Diarrhea, Melena or Hematochezia Associated Symptoms Associated Symptoms: Negative for Dysuria, Frequency, Hematuria or Urgency Narrative Narrative: 48-year-old female extensive past medical history including pulmonary emboli on Coumadin. Prior appendectomy, cholecystectomy, hysterectomy and . Prior pancreatitis and bowel obstruction. Patient states that her pain started Tuesday. She thought she was mildly constipated but after she has had bowel movements after suppository she said she has had continued pain. Associated nausea vomiting. No fever. No dysuria. Its diffuse pain but worse in the upper abdomen. Said it is worse with change of position. The pains been constant. She denies any fever. Prior similar symptoms: Yes Recent Illness/Hospitalization: No PFSH PFSH Medical History Diabetes Chronic pain Pancreatitis GI bleed Pulmonary embolism Smoker Acute on chronic pancreatitis Pancreatitis Chronic constipation Vitamin D deficiency Depression GERD (gastroesophageal reflux disease) DVT (deep venous thrombosis) Stroke/cerebrovascular accident Epilepsy Substance abuse History of CVA (cerebrovascular accident) Seizure disorder Presence of IVC filter Anxiety History of pulmonary embolus (PE) Factor V Leiden mutation Hyperlipidemia Hypertension Home Medications ?Medication ?Instructions ?Recorded ?Last Taken ?Type furosemide 40 mg tablet 40 mg PO DAILY water pill 09/10/16 06/16/24 History valacyclovir 500 mg tablet 500 mg PO DAILY herpes 10/25/18 06/16/24 History (Valtrex) linaclotide 290 mcg capsule 290 mcg PO DAILY bowels 05/28/21 06/16/24 History (Linzess) methenamine hippurate 1 gram 1 g PO QHS bladder infections 12/03/21 06/16/24 History tablet (Hiprex) venlafaxine 150 mg 150 mg PO DAILY mood 12/03/21 06/16/24 History capsule,extended release 24 hr (Effexor XR) cholecalciferol (vitamin D3) 1,250 50,000 unit PO FR supplement 02/05/23 06/15/24 History mcg (50,000 unit) capsule omeprazole 40 mg capsule,delayed 40 mg PO BID 02/23/23 06/16/24 History release fenofibrate nanocrystallized 145 145 mg PO QHS cholesterol 05/07/23 06/15/24 History mg tablet aripiprazole 10 mg tablet 10 mg PO DAILY MOOD 06/23/23 06/16/24 History benztropine 0.5 mg tablet 0.5 mg PO BID mood 06/23/23 06/16/24 History divalproex 250 mg tablet,delayed 250 mg PO Q12H 06/23/23 06/16/24 History release clonidine HCl 0.2 mg tablet 0.2 mg PO QHS 07/22/23 06/15/24 History metoprolol succinate 25 mg 25 mg PO DAILY heart health 07/22/23 06/16/24 History tablet,extended release 24 hr melatonin 10 mg tablet 5 mg PO QHS PRN sleep 08/17/23 06/15/24 History pen needle, diabetic 31 gauge x #100 ea 08/18/23 Unknown Rx 1/3 promethazine 25 mg tablet 25 mg PO TID PRN nausea and 10/23/23 06/16/24 Rx vomiting 7 days #21 tabs venlafaxine 75 mg capsule,extended 75 mg PO QDAY mood 01/19/24 06/16/24 History release 24 hr lactulose 10 gram/15 mL oral 15 ml PO BID PRN constipation 01/26/24 Unknown History solution nitrofurantoin 100 mg PO DAILY PRN after sex 01/26/24 Unknown History monohydrate/macrocrystals 100 mg capsule (Macrobid) potassium chloride 20 mEq 20 meq PO TID supplement 01/26/24 06/16/24 History tablet,extended release insulin aspart U-100 100 unit/mL 18 unit subcut TID blood sugar 02/04/24 06/16/24 History (3 mL) subcutaneous pen (Novolog FlexPen U-100 Insulin aspart) insulin glargine U-300 conc 300 26 unit subcut DAILY diabetes 02/04/24 06/15/24 History unit/mL (3 mL) subcutaneous pen (Toujeo Max U-300 SoloStar) baclofen 10 mg tablet 10 mg PO TID 06/16/24 06/16/24 History ropinirole 0.5 mg tablet 0.5 mg PO BID 06/16/24 06/16/24 History warfarin 2.5 mg tablet 2.5 mg PO SUMOFRSA 06/16/24 06/16/24 History warfarin 2.5 mg tablet 5 mg PO MOWEFR 06/16/24 06/14/24 History zinc oxide 15 %-corn starch 81 % 1 ea topical BID PRN AFFECTED AREA 06/16/24 Unknown History topical powder (Caldesene) acetaminophen 500 mg tablet 1,000 mg PO Q8H PRN PRN pain 07/02/24 Unknown History Allergy/AdvReac Type Severity Reaction Status Date / Time gabapentin (From Neurontin) Allergy Rash Verified 06/16/24 11:45 Penicillins Allergy Rash Verified 06/16/24 11:45 Sulfa (Sulfonamide Allergy Rash Verified 06/16/24 11:45 Antibiotics) topiramate (From Topamax) AdvReac Mild twitching Verified 06/16/24 11:45 of eyelids Family History Mother Hypertension Hyperlipidemia Father Heart disease Surgical History H/O: History of embolic filter insertion History of appendectomy Hx of cholecystectomy History of hysterectomy Social History household members: none Smoking Status: Current every day smoker tobacco type: e-cigarettes alcohol intake: former substance use type: marijuana ROS ROS ED ROS Narrative Abdominal pain. Constitutional Constitutional ED: Denies chills or fever(s) ENT ENT ED: Denies ear pain Cardiovascular Cardiovascular: Denies chest pain Respiratory/Chest Respiratory/Chest: Denies cough or dyspnea Gastrointestinal Gastrointestinal: Reports abdominal pain, constipation, nausea, vomiting and other Details: Constipation has resolved. Genitourinary Genitourinary ED: Denies dysuria or hematuria Musculoskeletal Musculoskeletal: Denies arthralgias Integumentary Denies abscess Neurologic Neurologic: Denies headache(s) Psychiatric Psychiatric: Denies anxiety Endocrine Endocrinology: Denies polydipsia Hematologic/Lymphatic Hematologic/Lymphatic: Reports lymphadenopathy Allergic/Immunologic Allergic/Immunologic ED: Denies mouth swelling, tongue swelling or urticaria EXAM Physical Exam Narrative Exam Narrative: 48-year-old female sitting upright in bed. Vital signs are stable. She is afebrile. H EENT exam unremarkable. Neck nontender. Lungs clear to auscultation bilaterally. Heart tachycardic rate of 110 no murmur. Chest wall ribs nontender. Abdomen diffusely tender more so in epigastric region. No rebound or guarding. No rigidity. No hernia or mass. She is mildly distended. Moving all 4 extremities. Nontender no edema. Back nontender. She is awake and alert. Answering questions following commands. No focal motor deficits. Const Vital Signs: 07/02/24 05:42 Temperature 98.6 F Temperature Source Oral Pulse Rate 115 H Respiratory Rate 22 H Blood Pressure 163/105 H Blood Pressure Mean 124 Pulse Ox 98 Oxygen Delivery Method Room Air Positive well nourished and well developed; Negative for cachectic, contractures or unkempt General Appearance ED: well developed and NAD; Negative for unkempt, cachectic, contractures or pallor Nutritional Appearance: Negative for cachectic HEENT Reports moist mucous membranes normocephalic and atraumatic Eyes EOMs intact bilaterally Neck no lymphadenopathy, supple and no JVD Resp normal respiratory effort and clear to auscultation bilaterally Cardio regular rhythm, S1 normal heart sound, S2 normal heart sound and no murmurs; Negative for regular rate Rate: tachycardic GI no masses; Negative for non-tender or non-distended Inspection: abdominal distention Palpation: soft and tender; Negative for guarding, rigid, hernia, mass, pulsatile mass or rebound tenderness present Back/Spine no CVA tenderness Extremity full ROM General Extremety ED: Negative for edema or tenderness General Extremity: Negative for edema Neuro CN's II-XII intact bilaterally and moves all extremities Sensorium / Orientation: alert, oriented to person, oriented to place and oriented to time; Negative for orientation impaired Motor Exam: strength 5/5 throughout Psych mental status grossly normal and thought process normal Appearance: Negative for unkempt Mood & Affect: Negative for depressed, anxious or tearful Skin no wounds General Skin Exam: Negative for jaundice or pallor Lesions: no lesions Rashes: no rashes Trauma: Negative for abrasion Nails: Negative for discolored MDM MDM MDM Narrative Medical decision making narrative: 48-year-old female with past medical history of prior bowel obstruction, pancreatitis and multiple abdominal surgeries. With a versus other etiologies. She has had her gallbladder appendix and a hysterectomy previously done. She be treated with IV morphine and Zofran. CAT scan labs. Repeat exam 7:12 AM patient still has some pain. She has been made aware of her CBC and urinalysis. Patient be turned over to the morning physician who will check the rest of her blood work and CAT scan results and make final disposition. History & Record Review Discussion w/independent historian: Patient Additional record(s) reviewed:: Prior inpatient record, Prior outpatient record, Prior ED visit and Prior labs Lab Data Attestation: I reviewed the patient's lab results. Lab results narrative: Urinalysis shows no signs of infection. No white or red cells. No bacteria nor nitrates. CBC shows white 11.5. H&H 11.8 and 37. Platelets 250. Labs: Laboratory Results - last 24 hr 07/02/24 07/02/24 06:08 06:52 WBC 11.5 H RBC 4.31 Hgb 11.8 L Hct 37.5 MCV 87.0 MCH 27.4 MCHC 31.5 L RDW Std Deviation 50.5 H RDW Coeff of Megan 15.7 H Plt Count 250 MPV 8.6 Immature Gran % (Auto) 0.600 Neut % (Auto) 83.9 H Lymph % (Auto) 8.6 L Licking % (Auto) 5.7 Eos % (Auto) 0.9 Baso % (Auto) 0.3 Absolute Neuts (auto) 9.6 H Absolute Lymphs (auto) 0.99 Nucleated RBC % 0 PT 24.8 H INR 2.3 Urine Color Yellow Urine Clarity Clear Urine pH 6.0 Ur Specific Archer 1.025 Urine Protein 15 H Urine Glucose (UA) Normal Urine Ketones Negative Urine Occult Blood 10 H Urine Nitrite Negative Urine Bilirubin Negative Urine Urobilinogen Normal Ur Leukocyte Esterase 25 H Urine RBC 0 SEEN Urine WBC 0 SEEN Ur Squamous Epith Cells 0 SEEN Urine Bacteria 0 SEEN Urine Mucus 0 SEEN Discharge Plan Triage Chief Complaint: Abd Pain ED Provider: Jacob Rowland Dx/Rx/DC Orders Clinical Impression: Abdominal pain, Factor V Leiden, Chronic anticoagulation Prescriptions: No Action omeprazole 40 mg capsule,delayed release(DR/EC) 40 mg PO BID venlafaxine 75 mg capsule,extended release 24hr 75 mg PO QDAY furosemide 40 MG tablet 40 mg PO DAILY valacyclovir [Valtrex] 500 MG tablet 500 mg PO DAILY Linzess 290 mcg capsule 290 mcg PO DAILY methenamine hippurate [Hiprex] 1 gram Tablet 1 g PO QHS venlafaxine [Effexor XR] 150 mg Capsule,Extended Release 24hr 150 mg PO DAILY cholecalciferol (vitamin D3) 1,250 mcg (50,000 unit) capsule 50,000 unit PO FR aripiprazole 10 mg tablet 10 mg PO DAILY benztropine 0.5 mg tablet 0.5 mg PO BID divalproex 250 mg tablet,delayed release (DR/EC) 250 mg PO Q12H clonidine HCl 0.2 mg tablet 0.2 mg PO QHS metoprolol succinate 25 mg tablet extended release 24 hr 25 mg PO DAILY promethazine 25 mg tablet 25 mg PO TID PRN (Reason: nausea and vomiting) 7 Days Qty: 21 0RF fenofibrate nanocrystallized 145 mg tablet 145 mg PO QHS melatonin 10 mg tablet 5 mg PO QHS PRN (Reason: sleep) (DME) pen needle, diabetic 31 gauge x 1/3 needle See Rx Instructions .Route Qty: 100 0RF Rx Instructions: As directed potassium chloride 20 mEq tablet extended release 20 meq PO TID nitrofurantoin monohyd/m-cryst [Macrobid] 100 mg capsule 100 mg PO DAILY PRN (Reason: after sex) lactulose 10 gram/15 mL solution 15 ml PO BID PRN (Reason: constipation) insulin aspart U-100 [Novolog FlexPen U-100 Insulin] 100 unit/mL (3 mL) insulin pen 18 unit subcut TID insulin glargine U-300 conc [Toujeo Max U-300 SoloStar] 300 unit/mL (3 mL) insulin pen 26 unit subcut DAILY acetaminophen 500 mg Tablet 1,000 mg PO Q8H PRN PRN (Reason: pain) warfarin 2.5 mg tablet 2.5 mg PO SUMOFRSA baclofen 10 mg tablet 10 mg PO TID ropinirole 0.5 mg tablet 0.5 mg PO BID warfarin 2.5 mg tablet 5 mg PO MOWEFR Caldesene 15-81 % powder 1 ea topical BID PRN (Reason: AFFECTED AREA) Primary Care Provider: Rin Rivera NP Referrals: Rin Rivera NP, [facility] [Primary Care Provider] - Print Language: Macedonian
[2024-07-02] MEDS: Ondansetron 4 MG/2 ML Vial IV (06:10)
[2024-07-02] MEDS: morphine 8 MG/ML Syringe 6 MG IV (06:10)
[2024-07-02 06:11] LABS: Bacteria 0 SEEN /hpf (None Seen); Mucous, Urine 0 SEEN /hpf (<or=2+); Red Blood Cells-Urine 0 SEEN /hpf (0-5); Squamous Epithelial Cells - UA 0 SEEN /hpf (5-10); White Blood Cells 0 SEEN /hpf (0-5)
[2024-07-02 06:13] LABS: Color, Urine Yellow (Yellow); Glucose, Dipstick Normal (Normal); Ketone-Dipstick Negative (Negative); Leukocyte Esterase-Dipstick 25 /ul (Negative); Nitrite-Dipstick Negative (Negative); Occult Blood-Urine 10 /ul (Negative); Protein-Dipstick 15 mg/dl (Negative); Specific Gravity, Urine 1.025 (1.002-1.030); Urine Bilirubin Dipstick Negative (Negative); Urine Clarity Clear (Clear); Urine Urobilinogen Normal (Normal)
[2024-07-02 06:57] LABS: Absolute Lymphocyte Count 0.99 X10^3/uL (0.83-4.51); Absolute Neutrophil Count 9.6 X10^3/uL (2.0-7.7); Basophil# 0.04 X10^3/uL; Basophil% 0.3 % (0-1); Eosinophils% 0.9 % (0-5); Hematocrit 37.5 % (37-47); Hemoglobin 11.8 g/dL (12.0-15.0); Lymphocyte # 0.99 X10^3/ul (0.83-4.51); Lymphocyte % 8.6 % (19-41); Mean Corp Hgb Conc 31.5 g/dL (32-36); Mean Corpuscular Hgb 27.4 pg (27.0-32.0); Mean Platelet Vol. 8.6 fl (6.2-12.0); Monocyte# 0.65 X10^3/uL; Monocyte% 5.7 % (0-10); NRBC Flagged by Analyzer 0 % (0-5); Neutrophil # 9.62 X10^3/uL (2.7-7.7); Neutrophil % 83.9 % (47-70); Platelet Count 250 K/mm3 (150-450); RBC Distribution Width CV 15.7 % (11.6-14.6); RBC Distribution Width SD 50.5 fl (35.1-43.9); Red Blood Count 4.31 M/mm3 (4.2-5.4); White Blood Count 11.5 K/mm3 (4.4-11.0)
[2024-07-02 07:07] LABS: International Normalized Ratio 2.3; Prothrombin Time (Protime)PT. 24.8 SECONDS (11.7-14.9)
[2024-07-02 07:14] LABS: AST(SGOT) 58 U/L (15-37); Alanine Aminotransfer ALT/SGPT 97 U/L (13-56); Albumin, Serum 3.6 g/dL (3.2-5.0); Alkaline Phosphatase 117 U/L (45-117); Anion Gap 8 (5-15); BUN 15 mg/dL (7-18); BUN/Creat Ratio 18.4 RATIO (10-20); Calcium,Total 8.9 mg/dL (8.5-10.1); Chloride 103 mmol/L (98-107); Creatinine, Serum 0.82 mg/dL (0.55-1.02); EST Glomerular Filtration Rate 79 mL/min (>60); Est Glom Filt Rate - Afr Amer 96 mL/min (>60); Estimated Creatinine Clearance 98.31 ml/min; Globulin 3.5 g/dL (2.2-4.2); Glucose 242 mg/dL (74-106); Lipase 189 U/L (13-75); Protein, Total 7.1 g/dL (6.4-8.2); Sodium Level 134 mmol/L (136-145)
[2024-07-02 07:31] VITALS: BP 139/78; PULSE 97; RESP 19; O2SAT 96
[2024-07-02] MEDS: Dicyclomine 20 MG/2 ML Vial IM (07:45)
[2024-07-02] MEDS: Ketorolac 15 MG/ML Vial IV (07:45)
--- NOTE | 2024-07-02 08:39 | ED.RN ---
ATTEMPTED TO GO IN AND DE-ACCESS PATIENTS PORT AND NARCOTICS INVESTIGATOR DISCHARGE PAPERWORK BUT PATIENT NOT IN ROOM OR BATHROOMS. OTHER STAFF STATED THEY SAW HER WALKING OUT THE FRONT DOOR A FEW MINUTES PRIOR. PORT NEEDLE WAS FOUND IN THE PATIENTS ROOM IN THE MATTRESS OF THE BED SHE WAS BEING SEEN IN. , [employer]NER INFORMED
== END 2024-07-02 08:43 | disposition home or self-care (01) ==
PROVIDERS: Emergency Provider Emergency Medicine; PCP Nurse Practitioner Family; Visit Provider Emergency Medicine
DX: R10.13 Epigastric pain (principal); E11.9 Type 2 diabetes mellitus without complications; Z79.4 Long term (current) use of insulin; D68.51 Activated protein C resistance; I10 Essential (primary) hypertension; F17.290 Nicotine dependence, other tobacco product, uncomplicated; Z90.49 Acquired absence of other specified parts of digestive tract; Z79.01 Long term (current) use of anticoagulants; Z79.899 Other long term (current) drug therapy; Z86.711 Personal history of pulmonary embolism
CPT/HCPCS: 36415; 74177; 80053; 81001; 83690; 85025; 85610; 96372; 96374; 96375; 99282; Q9967; A4216; J2405

== ENCOUNTER → 2024-08-09 | Outpatient (CLI) | payer MEDICARE, SELFPAY ==
[2024-08-09 12:57] LABS: Bacteria 0 SEEN /hpf (None Seen); Mucous, Urine 0 SEEN /hpf (<or=2+); Red Blood Cells-Urine 0 SEEN /hpf (0-5)
[2024-08-09 13:19] LABS: Hematocrit 39.2 % (37-47); Hemoglobin 12.8 g/dL (12.0-15.0); Mean Corp Hgb Conc 32.7 g/dL (32-36); Mean Corpuscular Hgb 29.2 pg (27.0-32.0); Mean Corpuscular Volume 89.3 fL (81-99); Mean Platelet Vol. 8.6 fl (6.2-12.0); Platelet Count 315 K/mm3 (150-450); RBC Distribution Width CV 14.5 % (11.6-14.6); RBC Distribution Width SD 46.7 fl (35.1-43.9); Red Blood Count 4.39 M/mm3 (4.2-5.4); White Blood Count 6.9 K/mm3 (4.4-11.0)
[2024-08-09 13:23] LABS: Color, Urine Yellow (Yellow); Glucose, Dipstick Normal (Normal); Ketone-Dipstick Negative (Negative); Leukocyte Esterase-Dipstick 100 /ul (Negative); Nitrite-Dipstick Negative (Negative); Occult Blood-Urine Negative /ul (Negative); Protein-Dipstick Negative (Negative); Urine Bilirubin Dipstick Negative (Negative); Urine Clarity Clear (Clear); Urine Urobilinogen Normal (Normal)
[2024-08-09 13:30] LABS: International Normalized Ratio 1.8; Prothrombin Time (Protime)PT. 21.2 SECONDS (11.7-14.9)
[2024-08-09 13:37] LABS: Squamous Epithelial Cells - UA 5-10 SEEN /hpf (5-10); White Blood Cells 0-5 SEEN /hpf (0-5)
[2024-08-09 13:44] LABS: ALB/GLOB Ratio 0.9 RATIO (0.9-2.4); AST(SGOT) 63 U/L (15-37); Alanine Aminotransfer ALT/SGPT 85 U/L (13-56); Albumin, Serum 3.6 g/dL (3.2-5.0); Alkaline Phosphatase 113 U/L (45-117); Anion Gap 7 (5-15); BUN 19 mg/dL (7-18); BUN/Creat Ratio 20.6 RATIO (10-20); Calcium,Total 9.2 mg/dL (8.5-10.1); Chloride 108 mmol/L (98-107); Cholesterol 157 mg/dL (200); Creatinine, Serum 0.92 mg/dL (0.55-1.02); EST Glomerular Filtration Rate 69 mL/min (>60); Est Glom Filt Rate - Afr Amer 83 mL/min (>60); Globulin 3.8 g/dL (2.2-4.2); Glucose 136 mg/dL (74-106); High Density Lipoprotein 24 mg/dL; Potassium 3.9 mmol/L (3.5-5.1); Protein, Total 7.4 g/dL (6.4-8.2); Sodium Level 138 mmol/L (136-145); Triglycerides 229 mg/dL; Very Low Density Lipoprotein 46 mg/dL (5-40)
[2024-08-09 14:34] LABS: HIV - WCH Non-Reactive (Nonreactive); Hepatitis B Surface Antibody Reactive; Hepatitis B Surface Antigen Non-Reactive (Nonreactive); Hepatitis C Antibody Non-Reactive (Nonreactive); Syphilis Antibodies Non-reactive
[2024-08-11 12:09] LABS: Hepatitis B Core Ab Total Negative (Negative); QNTFERON TB Mitogen Value > 10.00 IU/mL (.); QNTFERON TB Nil Value 0 IU/mL (.); QNTFERON TB1+ Ag Value 0 IU/mL (.); QNTFERON TB2+ Ag Value 0 IU/mL (.); QNTIFERON TB Positive Criteria Negative (Negative)
== END | disposition home or self-care (01) ==
LOC: LAB 12:42
PROVIDERS: PCP Physician Assistant; Visit Provider Physician Assistant
DX: F11.20 Opioid dependence, uncomplicated (principal); R39.9 Unspecified symptoms and signs involving the genitourinary system; E78.2 Mixed hyperlipidemia
CPT/HCPCS: 36415; 80053; 80061; 81001; 85027; 85610; 86480; 86703; 86704; 86706; 86780; 86803; 87340

== ENCOUNTER 2024-09-12 21:51 | Emergency (ER) | payer MEDICARE, SELFPAY ==
[2024-09-12 21:52] VITALS: BP 163/152; PULSE 86; RESP 15; TEMP 36.4; O2SAT 100
--- NOTE | 2024-09-12 22:37 | EDS_ITS ---
HPI History of Present Illness Chief Complaint: Other, Pain/Inj Informant: patient Narrative Narrative: Patient is a 48-year-old female with past medical history of hypertension hyperlipidemia and insulin-dependent diabetes. She states that she trimmed her nose hairs and then noticed roughly 3 days ago the start of redness and swelling and pain along the left nostril/nasal tip. She states that over the past 2 to 3 days the area has increased in size and pain. She denies any fevers or chills. She denies any difficulty breathing or swallowing. However because of the increased swelling and pain she has concern for infection and therefore presents for evaluation [facility] Medical History Diabetes Chronic pain Pancreatitis GI bleed Pulmonary embolism Smoker Acute on chronic pancreatitis Pancreatitis Chronic constipation Vitamin D deficiency Depression GERD (gastroesophageal reflux disease) DVT (deep venous thrombosis) Stroke/cerebrovascular accident Epilepsy Substance abuse History of CVA (cerebrovascular accident) Seizure disorder Presence of IVC filter Anxiety History of pulmonary embolus (PE) Factor V Leiden mutation Hyperlipidemia Hypertension Home Medications ?Medication ?Instructions ?Recorded ?Last Taken ?Type furosemide 40 mg tablet 40 mg PO DAILY water pill 09/10/16 06/16/24 History valacyclovir 500 mg tablet 500 mg PO DAILY herpes 10/25/18 06/16/24 History (Valtrex) linaclotide 290 mcg capsule 290 mcg PO DAILY bowels 05/28/21 06/16/24 History (Linzess) methenamine hippurate 1 gram 1 g PO QHS bladder infections 12/03/21 06/16/24 History tablet (Hiprex) venlafaxine 150 mg 150 mg PO DAILY mood 12/03/21 06/16/24 History capsule,extended release 24 hr (Effexor XR) cholecalciferol (vitamin D3) 1,250 50,000 unit PO FR supplement 02/05/23 06/15/24 History mcg (50,000 unit) capsule omeprazole 40 mg capsule,delayed 40 mg PO BID 02/23/23 06/16/24 History release fenofibrate nanocrystallized 145 145 mg PO QHS cholesterol 05/07/23 06/15/24 History mg tablet aripiprazole 10 mg tablet 10 mg PO DAILY MOOD 06/23/23 06/16/24 History benztropine 0.5 mg tablet 0.5 mg PO BID mood 06/23/23 06/16/24 History divalproex 250 mg tablet,delayed 250 mg PO Q12H 06/23/23 06/16/24 History release clonidine HCl 0.2 mg tablet 0.2 mg PO QHS 07/22/23 06/15/24 History metoprolol succinate 25 mg 25 mg PO DAILY heart health 07/22/23 06/16/24 History tablet,extended release 24 hr melatonin 10 mg tablet 5 mg PO QHS PRN sleep 08/17/23 06/15/24 History pen needle, diabetic 31 gauge x #100 ea 08/18/23 Unknown Rx 1/3 promethazine 25 mg tablet 25 mg PO TID PRN nausea and 10/23/23 06/16/24 Rx vomiting 7 days #21 tabs venlafaxine 75 mg capsule,extended 75 mg PO QDAY mood 01/19/24 06/16/24 History release 24 hr lactulose 10 gram/15 mL oral 15 ml PO BID PRN constipation 01/26/24 Unknown History solution nitrofurantoin 100 mg PO DAILY PRN after sex 01/26/24 Unknown History monohydrate/macrocrystals 100 mg capsule (Macrobid) potassium chloride 20 mEq 20 meq PO TID supplement 01/26/24 06/16/24 History tablet,extended release insulin aspart U-100 100 unit/mL 18 unit subcut TID blood sugar 02/04/24 06/16/24 History (3 mL) subcutaneous pen (Novolog FlexPen U-100 Insulin aspart) insulin glargine U-300 conc 300 26 unit subcut DAILY diabetes 02/04/24 06/15/24 History unit/mL (3 mL) subcutaneous pen (Toujeo Max U-300 SoloStar) baclofen 10 mg tablet 10 mg PO TID 06/16/24 06/16/24 History ropinirole 0.5 mg tablet 0.5 mg PO BID 06/16/24 06/16/24 History warfarin 2.5 mg tablet 2.5 mg PO SUMOFRSA 06/16/24 06/16/24 History warfarin 2.5 mg tablet 5 mg PO MOWEFR 06/16/24 06/14/24 History zinc oxide 15 %-corn starch 81 % 1 ea topical BID PRN AFFECTED AREA 06/16/24 Unknown History topical powder (Caldesene) acetaminophen 500 mg tablet 1,000 mg PO Q8H PRN PRN pain 07/02/24 Unknown History dicyclomine 10 mg capsule 10 mg PO TID PRN abdominal pain 3 07/02/24 Unknown Rx days #10 caps clindamycin HCl 300 mg capsule 300 mg PO 4X/DAY 10 days #40 caps 09/12/24 Unknown Rx Allergy/AdvReac Type Severity Reaction Status Date / Time gabapentin (From Neurontin) Allergy Rash Verified 09/12/24 21:54 Penicillins Allergy Rash Verified 09/12/24 21:54 Sulfa (Sulfonamide Allergy Rash Verified 09/12/24 21:54 Antibiotics) topiramate (From Topamax) AdvReac Mild twitching Verified 09/12/24 21:54 of eyelids Family History Mother Hypertension Hyperlipidemia Father Heart disease Surgical History H/O: History of embolic filter insertion History of appendectomy Hx of cholecystectomy History of hysterectomy Social History household members: none Smoking Status: Current every day smoker tobacco type: e-cigarettes alcohol intake: former substance use type: marijuana ROS ROS ED Constitutional Constitutional ED: Denies chills or fever(s) ENT ENT ED: Reports other Details: Positive nasal swelling and pain Cardiovascular Cardiovascular: Denies chest pain Respiratory/Chest Respiratory/Chest: Denies cough or dyspnea Gastrointestinal Gastrointestinal: Denies abdominal pain, diarrhea, nausea or vomiting Genitourinary Genitourinary ED: Denies dysuria Musculoskeletal Musculoskeletal: Denies myalgias Integumentary Reports abscess Neurologic Neurologic: Denies headache(s) Hematologic/Lymphatic Hematologic/Lymphatic: Reports easy bleeding and easy bruising Allergic/Immunologic Allergic/Immunologic ED: Denies mouth swelling or tongue swelling EXAM Physical Exam Const Vital Signs: 09/12/24 21:52 09/12/24 22:51 Temperature 97.6 F L 97.8 F Temperature Source Temporal Pulse Rate 86 84 Respiratory Rate 15 16 Blood Pressure 163/152 H 152/101 H Blood Pressure Mean 155 118 Pulse Ox 100 100 Oxygen Delivery Method Room Air Positive well nourished, well developed and obese General Appearance ED: well developed Nutritional Appearance: obese HEENT HEENT Narrative: There is soft tissue swelling with erythema along the left medial nasal labial fold. There is no fluctuance noted. No active drainage. No lymphangitic streaking. The area of erythema warmth and induration is roughly 1 x 1 cm in size without extension further up into the nasal septum Eyes PERRL and EOMs intact bilaterally Neck supple Resp normal respiratory effort and clear to auscultation bilaterally Cardio regular rate and regular rhythm Extremity normal to inspection Neuro oriented x3, CN's II-XII intact bilaterally and no sensory deficits noted Sensorium / Orientation: alert Motor Exam: strength 5/5 throughout Psych mental status grossly normal Skin Skin Narrative: Area of cellulitis/abscess along the left nasolabial fold as documented above MDM MDM MDM Narrative Medical decision making narrative: Patient arrived to the ER hypertensive but otherwise with stable vitals. History and exam is consistent with a early nasal abscess. At this time there is no fluctuance or active drainage and I do not feel there is any significant fluid collection that would require incision and drainage. She does not have extension further up into the septum there is no obvious findings to suggest systemic infection such as fever or tachycardia and concern for a cavernous sinus thrombosis is low as well. Therefore this time I do not feel there is need for imaging or laboratory studies as she has not failed outpatient therapy. I do not feel there is need for incision and drainage based on the small nature of the early abscess as documented above. Patient will be placed on clindamycin as she has a penicillin and sulfa allergy but is otherwise safe for discharge History & Record Review Discussion w/independent historian: Patient Discharge Plan Triage Chief Complaint: Other, Pain/Inj ED Provider: Paul Escamilla Dx/Rx/DC Orders Clinical Impression: Abscess or cellulitis of nose, external, Insulin dependent diabetes mellitus, Hypertension, Hyperlipidemia Instructions: ED Abscess Antibiotic Treatment Only Prescriptions: New clindamycin HCl 300 mg capsule 300 mg PO 4X/DAY 10 Days Qty: 40 0RF No Action omeprazole 40 mg capsule,delayed release(DR/EC) 40 mg PO BID venlafaxine 75 mg capsule,extended release 24hr 75 mg PO QDAY furosemide 40 MG tablet 40 mg PO DAILY valacyclovir [Valtrex] 500 MG tablet 500 mg PO DAILY Linzess 290 mcg capsule 290 mcg PO DAILY methenamine hippurate [Hiprex] 1 gram Tablet 1 g PO QHS venlafaxine [Effexor XR] 150 mg Capsule,Extended Release 24hr 150 mg PO DAILY cholecalciferol (vitamin D3) 1,250 mcg (50,000 unit) capsule 50,000 unit PO FR aripiprazole 10 mg tablet 10 mg PO DAILY benztropine 0.5 mg tablet 0.5 mg PO BID divalproex 250 mg tablet,delayed release (DR/EC) 250 mg PO Q12H clonidine HCl 0.2 mg tablet 0.2 mg PO QHS metoprolol succinate 25 mg tablet extended release 24 hr 25 mg PO DAILY promethazine 25 mg tablet 25 mg PO TID PRN (Reason: nausea and vomiting) 7 Days Qty: 21 0RF fenofibrate nanocrystallized 145 mg tablet 145 mg PO QHS melatonin 10 mg tablet 5 mg PO QHS PRN (Reason: sleep) (DME) pen needle, diabetic 31 gauge x 1/3 needle See Rx Instructions .Route Qty: 100 0RF Rx Instructions: As directed potassium chloride 20 mEq tablet extended release 20 meq PO TID nitrofurantoin monohyd/m-cryst [Macrobid] 100 mg capsule 100 mg PO DAILY PRN (Reason: after sex) lactulose 10 gram/15 mL solution 15 ml PO BID PRN (Reason: constipation) insulin aspart U-100 [Novolog FlexPen U-100 Insulin] 100 unit/mL (3 mL) insulin pen 18 unit subcut TID insulin glargine U-300 conc [Toujeo Max U-300 SoloStar] 300 unit/mL (3 mL) insulin pen 26 unit subcut DAILY acetaminophen 500 mg Tablet 1,000 mg PO Q8H PRN PRN (Reason: pain) dicyclomine 10 mg capsule 10 mg PO TID PRN (Reason: abdominal pain) 3 Days Qty: 10 0RF warfarin 2.5 mg tablet 2.5 mg PO SUMOFRSA baclofen 10 mg tablet 10 mg PO TID ropinirole 0.5 mg tablet 0.5 mg PO BID warfarin 2.5 mg tablet 5 mg PO MOWEFR Caldesene 15-81 % powder 1 ea topical BID PRN (Reason: AFFECTED AREA) Primary Care Provider: Paul Virgen Referrals: Paul Virgen PA [Primary Care Provider] - Activity Restrictions/Additional Instructions: Your exam displays a early nasal abscess. Please use your topical clindamycin cream but add the oral antibiotic for improved infection coverage. It will typically take 48 to 72 hours before you notice improvement. If you feel like the area is worsening or have any further concerns please return to the ER for repeat evaluation Print Language: Sami Disposition Disposition: Home, Self Care
[2024-09-12] MEDS: Clindamycin HCl 150 MG Capsule 300 MG PO (22:45)
[2024-09-12] MEDS: Ondansetron ODT 4 MG Tablet PO (22:45)
[2024-09-12] MEDS: morphine 10 MG/ML Syringe 8 MG IM (22:45)
[2024-09-12 22:51] VITALS: BP 152/101; PULSE 84; RESP 16; TEMP 36.6; O2SAT 100
--- NOTE | 2024-09-12 22:52 | ED.RN ---
Pt. informed she needed to find a ride home with getting a morphine shot. Pt. states her mother is coming to get her.
== END 2024-09-12 23:03 | disposition home or self-care (01) ==
PROVIDERS: Emergency Provider Emergency Medicine; PCP Physician Assistant; Visit Provider Emergency Medicine
DX: J34.0 Abscess, furuncle and carbuncle of nose (principal); E11.9 Type 2 diabetes mellitus without complications; I10 Essential (primary) hypertension; E78.5 Hyperlipidemia, unspecified; K21.9 Gastro-esophageal reflux disease without esophagitis; E66.9 Obesity, unspecified
CPT/HCPCS: 96372; 99283

== ENCOUNTER → 2025-06-18 | Outpatient (CLI) | payer MEDICARE, MEDICAID, SELFPAY ==
--- OUTSIDE RECORDS SUMMARY | 2025-06-13 22:17 | XMS RPT_ITS ---
Author Name Auto Generated Organization OH[facility] Support Name Relationship Address Phone ABDIEL MONTELONGO Next of Kin [address] [place] [address] + SHARI DOCKERY Next of Kin Unknown [phone] DISABILITY Next of Kin Unknown Unavailable ABDIEL MONTELONGO Next of Kin [address] [place] [address] + SHARI DOCKERY Next of Kin Unknown [phone] 08~330-7 DISABILITY Next of Kin Unknown Unavailable ABDIEL MONTELONGO Next of Kin [address] [place] [address] + SHARI DOCKERY Next of Kin Unknown [phone] 08~330-7 DISABILITY Next of Kin Unknown Unavailable ABDIEL MONTELONGO Next of Kin [address] [place] [address] + SHARI DOCKERY Next of Kin Unknown [phone] 08~330-7 DISABILITY Next of Kin Unknown Unavailable ABDIEL MONTELONGO Next of Kin [address] [place] [address] + SHARI DOCKERY Next of Kin Unknown [phone] 08~330-7 DISABILITY Next of Kin Unknown Unavailable ABDIEL MONTELONGO Next of Kin [address] [place] [address] + DOCKERY, SHARI Next of Kin Unknown [phone] 08~330-7 DISABILITY Next of Kin Unknown Unavailable REGINALD, ABDIEL Next of Kin [address] [place] [address] + DOCKERY, SHARI Next of Kin Unknown [phone] 08~330-7 DISABILITY Next of Kin Unknown Unavailable REGINALD, ABDIEL Next of Kin [address] [place] [address] + DOCKERY, SHARI Next of Kin Unknown [phone] 08~330-7 DISABILITY Next of Kin Unknown Unavailable REGINALD, ABDIEL Next of Kin [address] [place] [address] + DOCKERY, SHARI Next of Kin Unknown [phone] 08~330-7 DISABILITY Next of Kin Unknown Unavailable REGINALD, ABDIEL Next of Kin [address] [place] [address] + DOCKERY, SHARI Next of Kin Unknown [phone] 08~330-7 DISABILITY Next of Kin Unknown Unavailable REGINALD, ABDIEL Next of Kin [address] [place] [address] + DOCKERY, SHARI Next of Kin Unknown [phone] 08~330-7 DISABILITY Next of Kin Unknown Unavailable REGINALD, ABDIEL Next of Kin [address] [place] [address] + DOCKERY, SHARI Next of Kin Unknown [phone] 08~330-7 DISABILITY Next of Kin Unknown Unavailable REGINALD, ABDIEL Next of Kin [address] [facility] [place] [address] + DOCKERY, SHARI Next of Kin Unknown [phone] 08~330-7 DISABILITY Next of Kin Unknown Unavailable REGINALD, ABDIEL Next of Kin [address] [place] [address] + DOCKERY, SHARI Next of Kin Unknown [phone] 08~330-7 DISABILITY Next of Kin Unknown Unavailable REGINALD, ABDIEL Next of Kin [address] [place] [address] + DOCKERY, SHARI Next of Kin Unknown [phone] 08~330-7 DISABILITY Next of Kin Unknown Unavailable REGINALD, ABDIEL Next of Kin [address] [place] [address] + DOCKERY, SHARI Next of Kin Unknown [phone] 08~330-7 DISABILITY Next of Kin Unknown Unavailable REGINALD, ABDIEL Next of Kin [address] [place] [address] + DOCKERY, SHARI Next of Kin Unknown [phone] 08~330-7 DISABILITY Next of Kin Unknown Unavailable REGINALD, ABDIEL Next of Kin [address] [facility] [place] [address] [phone]~304-9 DOCKERY, SHARI Next of Kin Unknown [phone] 08~330-7 DISABILITY Next of Kin Unknown Unavailable REGINALD, ABDIEL Next of Kin [address] [place] [address] [phone]~304-9 DOCKERY, SHARI Next of Kin Unknown [phone] 08~330-7 DISABILITY Next of Kin Unknown Unavailable REGINALD, ABDIEL Next of Kin [address] [place] [address] [phone]~304-9 DOCKERY, SHARI Next of Kin Unknown [phone] 08~330-7 DISABILITY Next of Kin Unknown Unavailable REGINALD, ABDIEL Next of Kin [address] [facility] [address] [phone]~304-9 DOCKERY, SHARI Next of Kin Unknown [phone] 08~330-7 DISABILITY Next of Kin Unknown Unavailable REGINALD, ABDIEL Next of Kin [address] [facility] [place] [address] [phone]~304-9 DOCKERY, SHARI Next of Kin Unknown [phone] 08~330-7 DISABILITY Next of Kin Unknown Unavailable REGINALD, ABDIEL Next of Kin [address] [facility] [place] [address] [phone]~304-9 DOCKERY, SHARI Next of Kin Unknown [phone] 08~330-7 DISABILITY Next of Kin Unknown Unavailable REGINALD, ABDIEL Next of Kin [address] [facility] [address] [phone]~304-9 DOCKERY, SHARI Next of Kin Unknown [phone] 08~330-7 DISABILITY Next of Kin Unknown Unavailable REGINALD, ABDIEL Next of Kin [address] [place] [address] [phone]~304-9 DOCKERY, SHARI Next of Kin Unknown [phone] 08~330-7 DISABILITY Next of Kin Unknown Unavailable REGINALD, ABDIEL Next of Kin [address] [place] [address] [phone]~304-9 DOCKERY, SHARI Next of Kin Unknown [phone] 08~330-7 DISABILITY Next of Kin Unknown Unavailable REGINALD, ABDIEL Next of Kin [address] [place] [address] [phone]~304-9 DOCKERY, SHARI Next of Kin Unknown [phone] 08~330-7 DISABILITY Next of Kin Unknown Unavailable REGINALD, ABDIEL Next of Kin [address] [place] [address] [phone]~304-9 DOCKERY, SHARI Next of Kin Unknown [phone] 08~330-7 DISABILITY Next of Kin Unknown Unavailable REGINALD, ABDIEL Next of Kin [address] [place] [address] + DOCKERY, SHARI Next of Kin Unknown [phone] DISABILITY Next of Kin Unknown Unavailable REGINALD, TRENT Next of Kin [address] [place] [address] + DOCKERY, SHARI Next of Kin Unknown [phone] DISABILITY Next of Kin Unknown Unavailable REGINALD, TRENT Next of Kin [address] [place] [address] + DOCKERY, SHARI Next of Kin Unknown [phone] DISABILITY Next of Kin Unknown Unavailable REGINALD, TRENT Next of Kin [address] [place] [address] [phone]~304-9 DOCKERY, SHARI Next of Kin Unknown [phone] DISABILITY Next of Kin Unknown Unavailable ABDIEL MONTELONGO Next of Kin [address] [place] [address] + DOCKERY, SHARI Next of Kin Unknown [phone] DISABILITY Next of Kin Unknown Unavailable ABDIEL MONTELONGO Next of Kin [address] [place] [address] [phone]~304-9 DOCKERY, SHARI Next of Kin Unknown [phone] DISABILITY Next of Kin Unknown Unavailable ABDIEL MONTELONGO Next of Kin [address] [place] [address] [phone]~304-9 DOCKERY, SHARI Next of Kin Unknown [phone] DISABILITY Next of Kin Unknown Unavailable ABDIEL MONTELONGO Next of Kin [address] [place] [address] [phone]~304-9 DOCKERY, SHARI Next of Kin Unknown [phone] DISABILITY Next of Kin Unknown Unavailable ABDIEL MONTELONGO Next of Kin [address] [place] [address] [phone]~304-9 DOCKERY, SHARI Next of Kin Unknown [phone] DISABILITY Next of Kin Unknown Unavailable REGINALD, ABDIEL Next of Kin [address] [place] [address] [phone]~304-9 DOCKERY, SHARI Next of Kin Unknown [phone] DISABILITY Next of Kin Unknown Unavailable REGINALD, ABDIEL Next of Kin [address] [place] [address] [phone]~304-9 DOCKERY, SHARI Next of Kin Unknown [phone] DISABILITY Next of Kin Unknown Unavailable REGINALD, ABDIEL Next of Kin [address] [place] [address] [phone]~304-9 DOCKERY, SHARI Next of Kin Unknown [phone] DISABILITY Next of Kin Unknown Unavailable REGINALD, ABDIEL Next of Kin [address] [place] [address] [phone]~304-9 DOCKERY, SHARI Next of Kin Unknown [phone] DISABILITY Next of Kin Unknown Unavailable REGINALD, ABDIEL Next of Kin [address] [place] [address] [phone]~304-9 DOCKERY, SHARI Next of Kin Unknown [phone] DISABILITY Next of Kin Unknown Unavailable REGINALD, ABDIEL Next of Kin [address] [place] [address] [phone]~304-9 DOCKERY, SHARI Next of Kin Unknown [phone] DISABILITY Next of Kin Unknown Unavailable REGINALD, ABDIEL Next of Kin [address] [place] [address] [phone]~304-9 DOCKERY, SHARI Next of Kin Unknown [phone] DISABILITY Next of Kin Unknown Unavailable REGINALD, ABDIEL Next of Kin [address] [place] [address] [phone]~304-9 DOCKERY, SHARI Next of Kin Unknown [phone] DISABILITY Next of Kin Unknown Unavailable REGINALD, ABDIEL Next of Kin [address] [place] [address] [phone]~304-9 DOCKERY, SHARI Next of Kin Unknown [phone] DISABILITY Next of Kin Unknown Unavailable REGINALD, ABDIEL Next of Kin [address] [place] [address] [phone]~304-9 DOCKERY, SHARI Next of Kin Unknown [phone] DISABILITY Next of Kin Unknown Unavailable REGINALD, ABDIEL Next of Kin [address] [place] [address] [phone]~304-9 DOCKERY, SHARI Next of Kin Unknown [phone] DISABILITY Next of Kin Unknown Unavailable REGINALD, ABDIEL Next of Kin [address] [place] [address] [phone]~304-9 DOCKERY, SHARI Next of Kin Unknown [phone] DISABILITY Next of Kin Unknown Unavailable REGINALD, ABDIEL Next of Kin [address] [place] [address] [phone]~304-9 11:22 AM Status: F Source: [facility] TYPE CODE TESTS RESULT OUT OF RANGE REFERENCE UNITS LAB [id number] T4, FREE 1.1 Normal 0.8-1.8 ng/dL Performed By: #### 866 #### [facility] [address], [address] [place] [address] Lathe Spotter: Tom Reyes MD DRUG MONITOR,AMPHETAMINE, W/ CONF, URINE Collected: 12/12/2024 8:53 AM Status: F Source: [facility] TYPE CODE TESTS RESULT OUT OF RANGE REFERENCE UNITS LAB [id number] Amphetamines NEGATIVE Normal <500 ng/mL Performed By: #### 71321, 39 406, 35892, 05074, 62801, 32077, 58834, 35624 #### [facility] [place] [address] Lathe Spotter: Tom Reyes MD DRUG MONITOR,BARBITURATE, W/ CONF, URINE Collected: 12/12/2024 8:53 AM Status: F Source: [facility] TYPE CODE TESTS RESULT OUT OF RANGE REFERENCE UNITS LAB [id number] Barbiturates NEGATIVE Normal <300 ng/mL Performed By: #### 34420, 39 406, 55729, 57767, 43323, 07322, 03117, 37877 #### [facility] [place] [address] Lathe Spotter: Tom Reyes MD DRUG MONITOR, COCAINE METAB, W/CONF, URINE Collected: 12/12/2024 8:53 AM Status: F Source: [facility] TYPE CODE TESTS RESULT OUT OF RANGE REFERENCE UNITS LAB 23765364 Cocaine Metabolite NEGATIVE Normal <150 ng/mL Performed By: #### 77755, 39 406, 45136, 75066, 53976, 01605, 65928, 92009 #### [facility] [place] [address] Lathe Spotter: Tom Reyes MD DRUG MONITOR, MARIJUANA META B, W/CONF, URINE Collected: 12/12/2024 8:53 AM Status: F Source: [facility] TYPE CODE TESTS RESULT OUT OF RANGE REFERENCE UNITS LAB [id number] Marijuana Metabolite NEGATIVE Normal <20 ng/mL Performed By: #### 97027, 39 406, 39767, 09730, 34441, 75555, 47939, 94528 #### [facility] [place] [address] Lathe Spotter: Tom Reyes MD DRUG MONITOR, PCP, W/CONF, URINE Collected: 12/12/2024 8:53 AM Status: F Source: [facility] TYPE CODE TESTS RESULT OUT OF RANGE REFERENCE UNITS LAB 76326635 Phencyclidine NEGATIVE Normal <25 ng/mL Performed By: #### 26676, 39 406, 76586, 34587, 70042, 84708, 73314, 82861 #### [facility] [place] [address] Lathe Spotter: Tom Reyes MD DRUG MONITOR, BENZO, QN, URINE Collected: 12/12/2024 8:53 AM Status: F Source: [facility] TYPE CODE TESTS RESULT OUT OF RANGE REFERENCE UNITS LAB [id number] Alphahydroxyalprazolam NEGATIVE Normal <25 ng/mL LAB 90695386 Alphahydroxymidazolam NEGATIVE Normal <50 ng/mL LAB 83552807 Alphahydroxytriazolam NEGATIVE Normal <50 ng/mL LAB 07854074 Aminoclonazepam NEGATIVE Normal <25 ng/mL LAB 55844088 Hydroxyethylflurazepam NEGATIVE Normal <50 ng/mL LAB 88185607 Lorazepam NEGATIVE Normal <50 ng/mL LAB 21121529 Nordiazepam NEGATIVE Normal <50 ng/mL LAB 91717264 Oxazepam NEGATIVE Normal <50 ng/mL LAB 77478283 Temazepam NEGATIVE Normal <50 ng/mL LAB 95035424 Benzodiazepines Comments Result Comment: See LDT Note s Performed By: #### 26741, 39 406, 44491, 85037, 99063, 19023, 98091, 38318 #### [facility] [place] [address] Lathe Spotter: Tom Reyes MD DRUG MONITOR, FENTANYL, QN, URINE Collected: 12/12/2024 8:53 AM Status: F Source: [facility] TYPE CODE TESTS RESULT OUT OF RANGE REFERENCE UNITS LAB 68636874 Fentanyl NEGATIVE Normal <0.5 ng/mL LAB 14916082 Norfentanyl NEGATIVE Normal <0.5 ng/mL LAB 43676236 Fentanyl Comments Result Comment: See LDT Note s Performed By: #### 81122, 39 406, 86719, 26182, 12777, 34525, 87856, 71270 #### [facility] [place] [address] Lathe Spotter: Tom Reyes MD DRUG MONITOR, HEROIN METAB, QN, URINE Collected: 12/12/2024 8:53 AM Status: F Source: [facility] TYPE CODE TESTS RESULT OUT OF RANGE REFERENCE UNITS LAB [id number] 6 Acetylmorphine NEGATIVE Normal <10 ng/mL LAB 46249637 Heroin Metab Comments Result Comment: See LDT Note s Performed By: #### 66915, 39 406, 77724, 78023, 27509, 83713, 29651, 30187 #### [facility] [address] , [address] [place] [address] Lathe Spotter: Tom Reyes MD DRUG MONITOR, METHADONE META B, QN, URINE Collected: 12/12/2024 8:53 AM Status: F Source: [facility] TYPE CODE TESTS RESULT OUT OF RANGE REFERENCE UNITS LAB 92749449 EDDP NEGATIVE Normal <100 ng/mL LAB 41644752 Methadone NEGATIVE Normal <100 ng/mL LAB 24268745 Methadone Comments Result Comment: See LDT Note s Performed By: #### 12742, 39 406, 61887, 49506, 10070, 27098, 68461, 63237 #### [facility] [address] [facility], [address] [place] [address] Lathe Spotter: Tom Reyes MD DRUG MONITOR, OPIATES EXPANDED, QN, URINE Collected: 12/12/2024 8:53 AM Status: F Source: [facility] TYPE CODE TESTS RESULT OUT OF RANGE REFERENCE UNITS LAB 55196332 Codeine NEGATIVE Normal <50 ng/mL LAB 99909661 Hydrocodone NEGATIVE Normal <50 ng/mL LAB 39513950 Hydromorphone NEGATIVE Normal <50 ng/mL LAB 95660290 Morphine NEGATIVE Normal <50 ng/mL LAB 60329457 Norhydrocodone NEGATIVE Normal <50 ng/mL LAB 37946671 Opiates Comments Result Comment: See LDT Note s LAB 88216852 Noroxycodone NEGATIVE Normal <50 ng/mL LAB 20470306 Oxycodone NEGATIVE Normal <50 ng/mL LAB 38095420 Oxymorphone NEGATIVE Normal <50 ng/mL LAB 45034097 Oxycodone Comments Result Comment: See LDT Note s Performed By: #### 29393, 39 406, 68661, 30031, 19386, 20387, 53825, 10797 #### [facility] [address], [address] [place] [address] Lathe Spotter: Tom Reyes MD DRUG MONITOR, TRAMADOL, QN, URINE Collected: 12/12/2024 8:53 AM Status: F Source: [facility] TYPE CODE TESTS RESULT OUT OF RANGE REFERENCE UNITS LAB 59483117 Desmethyltramadol NEGATIVE Normal <100 ng/m L LAB 63416991 Tramadol NEGATIVE Normal <100 ng/mL LAB 73044959 Tramadol Comments Result Comment: See LDT Note s Performed By: #### 98960, 39 406, 98416, 77667, 39954, 28430, 87589, 71595 #### [facility] [place] [address] Lathe Spotter: Tom Reyes MD DRUG MONITOR, ZOLPIDEM, QN, URINE Collected: 12/12/2024 8:53 AM Status: F Source: [facility] TYPE CODE TESTS RESULT OUT OF RANGE REFERENCE UNITS LAB 34193442 Zolpidem NEGATIVE Normal <5 ng/mL LAB 88637250 Zolpidem Metabolite NEGATIVE Normal <5 ng/mL LAB 53797964 Zolpidem Comments Result Comment: See LDT Note s Performed By: #### 04216, 39 406, 34502, 37903, 99487, 97207, 73685, 78727 #### [facility] [place] [address] Lathe Spotter: Tom Reyes MD SPECIMEN VALIDITY TEST PANEL Collected: 12/12/2024 8:53 AM Status: F Source: [facility] TYPE CODE TESTS RESULT OUT OF RANGE REFERENCE UNITS LAB 45027665 Creatinine 30.2 Normal > or = 20.0 mg/dL LAB 59556229 pH 5.8 Normal 4.5-9.0 LAB 82627389 Oxidant NEGATIVE Normal <200 mcg/mL Performed By: #### 52937, 39 406, 90359, 87969, 30943, 89764, 30126, 46103 #### [facility] [place] [address] Lathe Spotter: Tom Reyes MD DRUG MONITORING TEMPLATE Collected: 8:53 AM Status: F Source: [facility] TYPE CODE TESTS RESULT OUT OF RANGE REFERENCE UNITS LAB 33633258 Notes and Comments Result Comment: This drug te sting is for medical treatment only. Analysis was performed as non-forensic testing and these results should be used only by healthcare providers to render diagnosis or treatment, or to monitor progress of medical conditions. LDT Notes: Confirmation tests were developed and their analytical performance characteristics have been determined by [employer]. It has not been cleared or approved by the FDA. This assay has been validated pursuant to the CLIA regulations and is used for clinical purposes. Healthcare Providers needing Interpretation assistance, please contact us at [phone] ( ) M-F, 8am to 10pm EST Performed By: #### 00451, 39 406, 36249, 16465, 96138, 47397, 31351, 37902 #### [facility] [address], [address] [place] [address] Lathe Spotter: Tom Reyes MD CT ABDOMEN PELVIS W IV CONTRAST Observed: 11/30/2024 2:51 PM Status: F Source: [facility] Interpreted By: Deidre Anderson , STUDY: CT ABDOMEN PELVIS W IV CONTRAST; 11/30/2024 3:59 pm INDICATION: Signs/Symptoms:abdominal pain. COMPARISON: 11/09/2024 ACCESSION NUMBER(S): [id number] ORDERING CLINICIAN: ARMANDO JEONG TECHNIQUE: CT of the abdomen and pelvis was performed following the intravenous administration 70 mL Omnipaque 350. Sagittal and coronal reconstructions were generated. FINDINGS: LOWER CHEST: There is a suggestion of a catheter in superior vena cava. There are calcified granulomas. ABDOMEN: LIVER: There is marked fatty infiltration of the liver. There is what may represent focal fat along the falciform ligament. There is what may represent a cyst in the left lobe of the liver. BILE DUCTS: Unremarkable GALLBLADDER: Gallbladder has been removed. PANCREAS: Pancreas is atrophic. The pancreatic duct is dilated measuring 7 mm. SPLEEN: Unremarkable ADRENAL GLANDS: There are no obvious adrenal masses. KIDNEYS AND URETERS: The kidneys are not obstructed. There are no renal calculi. PELVIS: BLADDER: Unremarkable REPRODUCTIVE ORGANS: The patient is status post hysterectomy. BOWEL: There is mild nonspecific small bowel distention. There is a moderate amount of fecal material. Appendix is not obvious. VESSELS: Cava is unremarkable. There is what apparently represents a caval filter. PERITONEUM/RETROPERITONEUM/LYMPH NODES: There is no free air or free fluid. There are numerous Chapis lymph nodes in peripancreatic region. BONES AND ABDOMINAL WALL: The spine is unremarkable. COMPARISON OF FINDINGS: Abdomen and pelvis are similar. IMPRESSION: Fatty infiltration of the liver. Prominent pancreatic duct similar to the prior exam. Numerous tiny lymph nodes in the region of pancreas. MACRO: none Signed by: Deidre Anderson 11/30/2024 4:31 PM Dictation workstation: [id number] URINALYSIS COMPLETE W REFLEX CULTURE PANEL Collected: 11/30/2024 2:11 PM Status: F Source: [facility] TYPE CODE TESTS RESULT OUT OF RANGE REFERENCE UNITS LAB 5778-6(LOINC) Color Colorless Normal Light- Yellow , Yellow, Dark-Yellow LAB 5767-9(LOINC) Appearance Clear Clear LAB 38616-4(LOINC) Specific gravity 1.016 1.005-1. 035 LAB 90332-5(LOINC) pH 6.5 5.0, 5.5, 6.0, 6.5, 7.0, 7.5, 8.0 LAB 23186-7(LOINC) Protein NEGATIVE NEGAT DINA, 10 (TRACE), 20 (TRACE) mg/dL LAB 05291-3(LOINC) Glucose Normal Normal mg/dL LAB 86030-8(LOINC) Erythrocytes NEGATIVE NEGATIVE mg /dL LAB 04434-3(LOINC) Ketones NEGATIVE NEGATIVE mg/dL LAB 67793-0(LOINC) Bilirubin NEGATIVE NEGATIVE mg/dL LAB 87231-1(LOINC) Urobilinogen Normal Normal mg/d L LAB 01037-5(LOINC) Nitrite NEGATIVE NEGATIVE LAB 94773-4(LOINC) Leukocyte esterase NEGATIVE NEGATIVE Performed By: #### 76958-4 # ### BRYAN EZRA ([id number]) [facility] [address] [place] [address] COMPLETE BLOOD COUNT W AUTO DIFFERENTIAL PANEL Collected: 11/30/2024 2:08 PM Status: F Source: [facility] TYPE CODE TESTS RESULT OUT OF RANGE REFERENCE UNITS LAB 6690-2(LOINC) Leukocytes 5.2 4.4-11.3 x10*3/ uL LAB 73780-6(LOINC ) Erythrocytes.nuc leated/100 leukocytes 0.0 0.0-0.0 /100 WBCs LAB 789-8(LOINC) Erythrocytes 4.00 4.00-5.20 x10* 6/uL LAB 718-7(LOINC) Hemoglobin 12.2 12.0-16.0 g/dL LAB 4544-3(LOINC) Hematocrit 38.4 36.0-46.0 % LAB 787-2(LOINC) Erythrocyte mean corpuscular volume 96 80-100 fL LAB 785-6(LOINC) Erythrocyte mean corpuscular hemoglobin 30.5 26.0-34.0 pg LAB 786-4(LOINC) Erythrocyte mean corpuscular hemoglobin concentration 31.8 Low 32.0-36.0 g/dL LAB 788-0(LOINC) Erythrocyte distribution width 12.1 11.5-14.5 % LAB 777-3(LOINC) Platelets 233 150-450 x10*3/uL LAB 770-8(LOINC) Neutrophils/100 leukocytes 61.5 40.0-80.0 % LAB 95788-1(LOINC ) Granulocytes.imm ature/100 leukocytes 0.6 0.0-0.9 % Result Comment: Immature Gra nulocyte Count (IG) includes promyelocytes, myelocytes and metamyelocytes but does not include bands. Percent differential counts (%) should be interpreted in the context of the absolute cell counts (cells/UL). LAB 736-9(LOINC) Lymphocytes/100 leukocytes 28.1 13.0-44.0 % LAB 5905-5(LOINC) Monocytes/100 leukocytes 7.1 2.0-10.0 % LAB 713-8(LOINC) Eosinophils/100 leukocytes 2.1 0.0-6.0 % LAB 706-2(LOINC) Basophils/100 leukocytes 0.6 0.0-2.0 % LAB 751-8(LOINC) Neutrophils 3.20 1.20-7.70 x10*3 /uL Result Comment: Percent diff erential counts (%) should be interpreted in the context of the absolute cell counts (cells/uL). LAB 50641-1(LOINC ) Granulocytes.imm ature 0.03 0.00-0.70 x10*3/uL LAB 731-0(LOINC) Lymphocytes 1.46 1.20-4.80 x10*3 /uL LAB 742-7(LOINC) Monocytes 0.37 0.10-1.00 x10*3/u L LAB 711-2(LOINC) Eosinophils 0.11 0.00-0.70 x10*3 /uL LAB 704-7(LOINC) Basophils 0.03 0.00-0.10 x10*3/u L Performed By: #### 38227-5 # ### IRVIN MUNGUIA ([id number]) [facility] [address] [place] [address] MAGNESIUM Collected: 2:08 PM Status: F Source: [facility] TYPE CODE TESTS RESULT OUT OF RANGE REFERENCE UNITS LAB 80145-6(LOINC) Magnesium 1.99 1.60-2.40 mg/dL Performed By: #### 93464-7 # ### IRVIN MUNGUIA ([id number]) [facility] [address] [place] [address] COMPREHENSIVE METABOLIC 2000 PANEL Collected: 11/30/2024 2:08 PM Status: F Source: [facility] TYPE CODE TESTS RESULT OUT OF RANGE REFERENCE UNITS LAB 2345-7(LOINC) Glucose 140 High 74-99 mg/dL LAB 2951-2(LOINC) Sodium 138 136-145 mmol/L LAB 2823-3(LOINC) Potassium 4.0 3.5-5.3 mmol/L LAB 2075-0(LOINC) Chloride 103 98-107 mmol/L LAB 8-9(LOINC) Carbon dioxide 26 21-32 mmo l/L LAB 07840-0(LOINC ) Anion gap 13 10-20 mmol/L LAB 3094-0(LOINC) Urea nitrogen 20 6-23 mg/d L LAB 2160-0(LOINC) Creatinine 0.72 0.50-1.05 mg/dL LAB 27568-6(LOINC ) Glomerular filtration rate/1.73 sq M.predicted >90 >60 mL/min/ 1.73m*2 Result Comment: Calculations of estimated GFR are performed using the 2020 CKD- EPI Study Refit equation without the race variable for the IDMS-Traceable creatinine methods. https://jasn.asnjournals.org/content//ASN.2623828986 LAB 98343-2(LOINC ) Calcium 9.2 8.6-10.3 mg/dL LAB 81107-7(LOINC ) Albumin 4.1 3.4-5.0 g/dL LAB 6768-6(LOINC) Alkaline phosphatase 95 33-110 U/L LAB 2885-2(LOINC) Protein 6.8 6.4-8.2 g/dL LAB 97964-4(LOINC ) Aspartate aminotransferase 32 9-39 U/L LAB 1975-2(LOINC) Bilirubin 0.3 0.0-1.2 mg/dL LAB 1743-4(LOINC) Alanine aminotransferase 38 7-45 U/L Result Comment: Patients spenser ated with Sulfasalazine may generate falsely decreased results for ALT. Performed By: #### [id number] # ### IRVIN MUNGUIA ([id number]) [facility] [address] [place] [address] [id number] TRIACYLGLYCEROL LIPASE Collected: 11/30/2024 2:08 PM Status: F Source: [facility] Order Comment: Venipuncture immediately after or during the administration of Metamizole may lead to falsely low results. Testing should be performed immediately prior to Metamizole dosing. TYPE CODE TESTS RESULT OUT OF RANGE REFERENCE UNITS LAB 3040-3([facility]) Triacylglycerol lipase 54 9-82 U/L Performed By: #### 3040-3 ## ## IRVIN MUNGUIA ([id number]) [facility] HOSPITAL) [address] [place] [address]5064 CHORIOGONADOTROPIN.BETA SUBUNIT Collect ed: 11/30/2024 2:08 PM Status: F Source: [facility] Order Comment: Total HCG michel surement is performed using the ActualSun Access Immunoassay which detects intact HCG and free beta HCG subunit. This test is not indicated for use as a tumor marker. HCG testing is performed using a different test methodology at [facility] than other legacy [facility]. Direct result comparison should only be made within the same method. TYPE CODE TESTS RESULT OUT OF RANGE REFERENCE UNITS LAB 30584-2(LOINC ) Choriogona dotropin.b eta subunit <2 <5 mIU/mL Performed By: #### 44501-0 # ### IRVIN MUNGUIA ([id number]) [facility] ([facility]) [address] [place] [address] 52598 COAGULATION TISSUE FACTOR INDUCED Collected: 11/12/2024 4:34 AM Status: F Source: [facility] TYPE CODE TESTS RESULT OUT OF RANGE REFERENCE UNITS LAB 5902-2(LOINC) Coagulation tissue factor induced 29.8 High 9.8-12.8 seconds LAB 6301-6(LOINC) Coagulation tissue factor induced.INR 2.5 High 0.9-1.1 NA Performed By: #### 5902-2 ## ## IRVIN MUNGUIA ([id number]) [facility]) [address] [place] [address] 43963 BASIC METABOLIC 2000 PANEL Collected: 0 11/12/2024 4:34 AM Status: F Source: [facility] TYPE CODE TESTS RESULT OUT OF RANGE REFERENCE UNITS LAB 2345-7(LOINC) Glucose 121 High 74-99 mg/dL LAB 2951-2(LOINC) Sodium 138 136-145 mmol/L LAB 2823-3(LOINC) Potassium 4.0 3.5-5.3 mmol/L LAB 2075-0(LOINC) Chloride 103 98-107 mmol/L LAB 2027-9(LOINC) Carbon dioxide 27 21-32 mmo l/L LAB 24858-6(LOINC) Anion gap 12 10-20 mmol/L LAB 3094-0(LOINC) Urea nitrogen 10 6-23 mg/d L LAB 2160-0(LOINC) Creatinine 0.66 0.50-1.05 mg/dL LAB 82185-4(LOINC) Glomerular filtration rate/1.73 sq M.predicted >90 >60 mL/min/1 .73m*2 Result Comment: Calculations of estimated GFR are performed using the 2021 CKD- EPI Study Refit equation without the race variable for the IDMS-Traceable creatinine methods. https://jasn.asnjournals.org/content///ASN.7855225172 LAB 15432-9(LOINC) Calcium 8.8 8.6-10.3 mg/dL Performed By: #### 31809-5 # ### IRVIN MUNGUIA ([id number]) [facility]) [address] [place], [place] [id number] COAGULATION TISSUE FACTOR INDUCED Collected: 11/11/2024 5:00 AM Status: F Source: [facility] TYPE CODE TESTS RESULT OUT OF RANGE REFERENCE UNITS LAB 5902-2(LOINC) Coagulation tissue factor induced 36.6 High 9.8-12.8 seconds LAB 6301-6(LOINC) Coagulation tissue factor induced.INR 3.1 High 0.9-1.1 NA Performed By: #### 5902-2 ## ## IRVIN MUNGUIA ([id number]) [facility]) [address] [place], [place] [id number] COMPREHENSIVE METABOLIC 2000 PANEL Collected: 11/11/2024 5:00 AM Status: F Source: [facility] TYPE CODE TESTS RESULT OUT OF RANGE REFERENCE UNITS LAB 2345-7(LOINC) Glucose 106 High 74-99 mg/dL LAB 2951-2(LOINC) Sodium 138 136-145 mmol/L LAB 2823-3(LOINC) Potassium 4.0 3.5-5.3 mmol/L LAB 2075-0(LOINC) Chloride 107 98-107 mmol/L LAB 2027-9(LOINC) Carbon dioxide 25 21-32 mmo l/L LAB 02759-7(LOINC ) Anion gap 10 10-20 mmol/L LAB 3094-0(LOINC) Urea nitrogen 8 6-23 mg/d L LAB 2160-0(LOINC) Creatinine 0.62 0.50-1.05 mg/dL LAB 19237-3(LOINC ) Glomerular filtration rate/1.73 sq M.predicted >90 >60 mL/min/ 1.73m*2 Result Comment: Calculations of estimated GFR are performed using the 2020 CKD- EPI Study Refit equation without the race variable for the IDMS-Traceable creatinine methods. https://jasn.asnjournals.org/content//ASN.3402756120 LAB 65224-5(LOINC ) Calcium 8.2 Low 8.6-10.3 mg/dL LAB 83207-2(LOINC ) Albumin 3.6 3.4-5.0 g/dL LAB 6768-6(LOINC) Alkaline phosphatase 100 33-110 U/L LAB 2885-2(LOINC) Protein 5.9 Low 6.4-8.2 g/dL LAB 41668-2(LOINC ) Aspartate aminotransferase 42 High 9-39 U/L LAB 1975-2(LOINC) Bilirubin 0.3 0.0-1.2 mg/dL LAB 1743-4(LOINC) Alanine aminotransferase 62 High 7-45 U/L Result Comment: Patients spenser ated with Sulfasalazine may generate falsely decreased results for ALT. Performed By: #### 72811-8 # ### IRVIN MUNGUIA ([id number]) [facility]) [address] [place] [address] TRIACYLGLYCEROL LIPASE Collected: 11/11/2024 5:00 AM Status: F Source: [facility] Order Comment: Venipuncture immediately after or during the administration of Metamizole may lead to falsely low results. Testing should be performed immediately prior to Metamizole dosing. TYPE CODE TESTS RESULT OUT OF RANGE REFERENCE UNITS LAB 3040-3(LOINC) Triacylglycerol lipase 40 9-82 U/L Performed By: #### 3040-3 ## ## IRVIN MUNGUIA ([id number]) [facility]) [facility] [place] [id number] COMPLETE BLOOD COUNT W AUTO DIFFERENTIAL PANEL Collected: 11/10/2024 5:01 AM Status: F Source: [facility] TYPE CODE TESTS RESULT OUT OF RANGE REFERENCE UNITS LAB 6690-2(LOINC) Leukocytes 5.2 4.4-11.3 x10*3/ uL LAB 06789-5(LOINC ) Erythrocytes.nuc leated/100 leukocytes 0.0 0.0-0.0 /100 WBCs LAB 789-8(LOINC) Erythrocytes 3.90 Low 4.00-5.20 x10* 6/uL LAB 718-7(LOINC) Hemoglobin 12.0 12.0-16.0 g/dL LAB 4544-3(LOINC) Hematocrit 37.3 36.0-46.0 % LAB 787-2(LOINC) Erythrocyte mean corpuscular volume 96 80-100 fL LAB 785-6(LOINC) Erythrocyte mean corpuscular hemoglobin 30.8 26.0-34.0 pg LAB 786-4(LOINC) Erythrocyte mean corpuscular hemoglobin concentration 32.2 32.0-36.0 g/dL LAB 788-0(LOINC) Erythrocyte distribution width 12.4 11.5-14.5 % LAB 777-3(LOINC) Platelets 305 150-450 x10*3/uL LAB 770-8(LOINC) Neutrophils/100 leukocytes 59.7 40.0-80.0 % LAB 60407-9(LOINC ) Granulocytes.imm ature/100 leukocytes 0.4 0.0-0.9 % Result Comment: Immature Gra nulocyte Count (IG) includes promyelocytes, myelocytes and metamyelocytes but does not include bands. Percent differential counts (%) should be interpreted in the context of the absolute cell counts (cells/UL). LAB 736-9(LOINC) Lymphocytes/100 leukocytes 29.0 13.0-44.0 % LAB 5905-5(LOINC) Monocytes/100 leukocytes 7.0 2.0-10.0 % LAB 713-8(LOINC) Eosinophils/100 leukocytes 3.5 0.0-6.0 % LAB 706-2(LOINC) Basophils/100 leukocytes 0.4 0.0-2.0 % LAB 751-8(LOINC) Neutrophils 3.09 1.20-7.70 x10*3 /uL Result Comment: Percent diff erential counts (%) should be interpreted in the context of the absolute cell counts (cells/uL). LAB 91792-6(LOINC ) Granulocytes.imm ature 0.02 0.00-0.70 x10*3/uL LAB 731-0(LOINC) Lymphocytes 1.50 1.20-4.80 x10*3 /uL LAB 742-7(LOINC) Monocytes 0.36 0.10-1.00 x10*3/u L LAB 711-2(LOINC) Eosinophils 0.18 0.00-0.70 x10*3 /uL LAB 704-7(LOINC) Basophils 0.02 0.00-0.10 x10*3/u L Performed By: #### 16421-7 # ### IRVIN MUNGUIA ([id number]) [facility]) [address] [place], [place] [phone] COAGULATION TISSUE FACTOR INDUCED Collected: 11/10/2024 5:01 AM Status: F Source: [facility] TYPE CODE TESTS RESULT OUT OF RANGE REFERENCE UNITS LAB 5902-2([facility]) Coagulation tissue factor induced 31.7 High 9.8-12.8 seconds LAB 6301-6(LOINC) Coagulation tissue factor induced.INR 2.7 High 0.9-1.1 NA Performed By: #### 5902-2 ## ## IRVIN MUNGUIA ([id number]) [facility]) [address] [place], [place] [address] COMPREHENSIVE METABOLIC 2000 PANEL Collected: 11/10/2024 5:01 AM Status: F Source: [facility] TYPE CODE TESTS RESULT OUT OF RANGE REFERENCE UNITS LAB 2345-7(LOINC) Glucose 99 74-99 mg/dL LAB 2951-2(LOINC) Sodium 138 136-145 mmol/L LAB 2823-3(LOINC) Potassium 4.0 3.5-5.3 mmol/L LAB 2075-0(LOINC) Chloride 106 98-107 mmol/L LAB 2028-9(LOINC) Carbon dioxide 25 21-32 mmo l/L LAB 26208-2(LOINC ) Anion gap 11 10-20 mmol/L LAB 3094-0(LOINC) Urea nitrogen 11 6-23 mg/d L LAB 2160-0(LOINC) Creatinine 0.55 0.50-1.05 mg/dL LAB 44682-0(LOINC ) Glomerular filtration rate/1.73 sq M.predicted >90 >60 mL/min/ 1.73m*2 Result Comment: Calculations of estimated GFR are performed using the 2020 CKD- EPI Study Refit equation without the race variable for the IDMS-Traceable creatinine methods. https://jasn.asnjournals.org/content///ASN.4540170970 LAB 31915-0(LOINC ) Calcium 8.2 Low 8.6-10.3 mg/dL LAB 11785-4(LOINC ) Albumin 3.7 3.4-5.0 g/dL LAB 6768-6(LOINC) Alkaline phosphatase 95 33-110 U/L LAB 2885-2(LOINC) Protein 6.3 Low 6.4-8.2 g/dL LAB 70013-7(LOINC ) Aspartate aminotransferase 101 High 9-39 U/L LAB 1975-2(LOINC) Bilirubin 0.4 0.0-1.2 mg/dL LAB 1743-4(LOINC) Alanine aminotransferase 83 High 7-45 U/L Result Comment: Patients spenser ated with Sulfasalazine may generate falsely decreased results for ALT. Performed By: #### 57612-9 # ### IRVIN MUNGUIA ([id number]) [facility]) [address] [place] [address] TRIACYLGLYCEROL LIPASE Collected: 11/10/2024 5:01 AM Status: F Source: [facility] Order Comment: Venipuncture immediately after or during the administration of Metamizole may lead to falsely low results. Testing should be performed immediately prior to Metamizole dosing. TYPE CODE TESTS RESULT OUT OF RANGE REFERENCE UNITS LAB 3040-3(LOINC) Triacylglycerol lipase 72 9-82 U/L Performed By: #### 3040-3 ## ## IRVIN MUNGUIA ([id number]) [facility]) [address] [place], [place] [id number] COAGULATION TISSUE FACTOR INDUCED Collected: 11/09/2024 5:29 PM Status: F Source: [facility] TYPE CODE TESTS RESULT OUT OF RANGE REFERENCE UNITS LAB 5902-2(LOINC) Coagulation tissue factor induced 30.8 High 9.8-12.8 seconds LAB 6301-6(LOINC) Coagulation tissue factor induced.INR 2.6 High 0.9-1.1 NA Performed By: #### 5902-2 ## ## IRVIN MUNGUIA ([id number]) [facility]) [address] [place] [address] GLUCOSE Collected: 2:21 AM Status: F Source: [facility] TYPE CODE TESTS RESULT OUT OF RANGE REFERENCE UNITS LAB 2341-6([facility]) Glucose 77 74-99 mg/dL Performed By: #### 2341-6 ## ## BRYAN EZRA ([id number]) [facility]) [address] [place] [address] ECG 12-LEAD Observed: 11/09/2024 1:26 AM Status: F Source: [facility] Ventricular Rate 77 Atrial Rate 77 P-R Interval 160 QRS Duration 92 Q-T Interval 404 QTC Calculation(Bazett) 457 P [place] 48 R [place] 37 T [place] 44 QRS Count 13 Q Onset 222 P Onset 142 P Offset 201 T Offset 424 QTC Fredericia 439 Diagnosis Normal sinus rhythm Normal ECG When compared with ECG of 08-NOV-2024 23:19, (unconfirmed) No significant change was found See ED provider note for full interpretation and clinical correlation Confirmed by Armando Jeong ([id number]) on 11/11/2024 9:54:[address] ABDOMEN PELVIS W IV CONTRAST Observed: 11/09/2024 12:45 AM Status: F Source: [facility] Interpreted By: Amaya Jade, STUDY: CT ABDOMEN PELVIS W IV CONTRAST; ; 11/09/2024 1:22 am INDICATION: Signs/Symptoms:pain. COMPARISON: 05/2024. ACCESSION NUMBER(S): [id number] ORDERING CLINICIAN: THEODORE SIMS TECHNIQUE: Axial CT images of the abdomen and pelvis with coronal and sagittal reconstructed images performed after intravenous administration of 67 cc Omnipaque 350. FINDINGS: Visible lungs are clear. Heart is mildly enlarged. ABDOMEN: BONES: No acute osseous abnormality. ABDOMINAL WALL: Within normal limits. LIVER: Enlarged. Focal steatosis adjacent to falciform ligament and gallbladder fossa. Otherwise, no focal lesion is seen. BILE DUCTS: Normal caliber. GALLBLADDER: Absent, as before. PANCREAS: Atrophic. Peripancreatic fat stranding is present, compatible with edema related to acute pancreatitis. No convincing evidence for necrosis. No definite focal pancreatic lesion. No focal fluid collection. SPLEEN: Within normal limits. ADRENALS: Within normal limits. KIDNEYS: Within normal limits. URETERS: No hydroureter. PELVIS: REPRODUCTIVE ORGANS: No pelvic mass or significant free pelvic fluid. Uterus is absent. BLADDER: Within normal limits. VESSELS: IVC filter is present. Otherwise, within normal limits. RETROPERITONEUM: Within normal limits. BOWEL: Gastric and enteric mucosal hyperemia compatible with gastroenteritis. No dilated bowel. Small bowel feces is present in the terminal ileum suggesting delayed transit of enteric contents. There is a large volume of colonic stool suggesting constipation. Normal appendix. PERITONEUM: No ascites or free air, no fluid collection. IMPRESSION: Peripancreatic fat stranding is present, compatible with edema related to acute pancreatitis. No convincing evidence for necrosis. No definite focal pancreatic lesion. No focal fluid collection. Pancreas is atrophic. Gastric and enteric mucosal hyperemia compatible with gastroenteritis. Hepatomegaly. Cholecystectomy. IVC filter. Mild cardiomegaly. Additional findings as discussed above. MACRO: None Signed by: Jay Jay Jade 11/09/2024 1:33 AM Dictation workstation: [id number] URINALYSIS COMPLETE W REFLEX CULTURE PANEL Collected: 11/09/2024 12:12 AM Status: F Source: [facility] TYPE CODE TESTS RESULT OUT OF RANGE REFERENCE UNITS LAB 5778-6(LOINC) Color Colorless Normal Light- Yellow , Yellow, Dark-Yellow LAB 5767-9(LOINC) Appearance Clear Clear LAB 42468-7(LOINC) Specific gravity 1.010 1.005-1. 035 LAB 70510-0(LOINC) pH 6.0 5.0, 5.5, 6.0, 6.5, 7.0, 7.5, 8.0 LAB 16956-2(LOINC) Protein NEGATIVE NEGAT DINA, 10 (TRACE), 20 (TRACE) mg/dL LAB 94905-1(LOINC) Glucose Normal Normal mg/dL LAB 36278-9(LOINC) Erythrocytes NEGATIVE NEGATIVE mg /dL LAB 32177-0(LOINC) Ketones NEGATIVE NEGATIVE mg/dL LAB 12003-1(LOINC) Bilirubin NEGATIVE NEGATIVE mg/dL LAB 11908-9(LOINC) Urobilinogen Normal Normal mg/d L LAB 29363-6(LOINC) Nitrite NEGATIVE NEGATIVE LAB 58393-6(LOINC) Leukocyte esterase NEGATIVE NEGATIVE Performed By: #### 16749-4 # ### BRYAN EZRA ([id number]) [facility]) [address] [place] [address] COMPLETE BLOOD COUNT W AUTO DIFFERENTIAL PANEL Collected: 11/09/2024 12:07 AM Status: F Source: [facility] TYPE CODE TESTS RESULT OUT OF RANGE REFERENCE UNITS LAB 6690-2(LOINC) Leukocytes 6.9 4.4-11.3 x10*3/ uL LAB 28572-9(LOINC ) Erythrocytes.nuc leated/100 leukocytes 0.0 0.0-0.0 /100 WBCs LAB 789-8(LOINC) Erythrocytes 3.90 Low 4.00-5.20 x10* 6/uL LAB 718-7(LOINC) Hemoglobin 11.8 Low 12.0-16.0 g/dL LAB 4544-3(LOINC) Hematocrit 36.3 36.0-46.0 % LAB 787-2(LOINC) Erythrocyte mean corpuscular volume 93 80-100 fL LAB 785-6(LOINC) Erythrocyte mean corpuscular hemoglobin 30.3 26.0-34.0 pg LAB 786-4(LOINC) Erythrocyte mean corpuscular hemoglobin concentration 32.5 32.0-36.0 g/dL LAB 788-0(LOINC) Erythrocyte distribution width 12.4 11.5-14.5 % LAB 777-3(LOINC) Platelets 303 150-450 x10*3/uL LAB 770-8(LOINC) Neutrophils/100 leukocytes 62.2 40.0-80.0 % LAB 99360-4(LOINC ) Granulocytes.imm ature/100 leukocytes 0.3 0.0-0.9 % Result Comment: Immature Gra nulocyte Count (IG) includes promyelocytes, myelocytes and metamyelocytes but does not include bands. Percent differential counts (%) should be interpreted in the context of the absolute cell counts (cells/UL). LAB 736-9(LOINC) Lymphocytes/100 leukocytes 27.5 13.0-44.0 % LAB 5905-5(LOINC) Monocytes/100 leukocytes 6.8 2.0-10.0 % LAB 713-8(LOINC) Eosinophils/100 leukocytes 2.8 0.0-6.0 % LAB 706-2(LOINC) Basophils/100 leukocytes 0.4 0.0-2.0 % LAB 751-8(LOINC) Neutrophils 4.28 1.20-7.70 x10*3 /uL Result Comment: Percent diff erential counts (%) should be interpreted in the context of the absolute cell counts (cells/uL). LAB 68823-3(LOINC ) Granulocytes.imm ature 0.02 0.00-0.70 x10*3/uL LAB 731-0(LOINC) Lymphocytes 1.89 1.20-4.80 x10*3 /uL LAB 742-7(LOINC) Monocytes 0.47 0.10-1.00 x10*3/u L LAB 711-2(LOINC) Eosinophils 0.19 0.00-0.70 x10*3 /uL LAB 704-7(LOINC) Basophils 0.03 0.00-0.10 x10*3/u L Performed By: #### 43521-4 # ### BRYAN EZRA ([id number]) [facility]) [address] [place] [address] COMPREHENSIVE METABOLIC 2000 PANEL Collected: 11/09/2024 12:07 AM Status: F Source: [facility] TYPE CODE TESTS RESULT OUT OF RANGE REFERENCE UNITS LAB 2345-7(LOINC) Glucose 126 High 74-99 mg/dL LAB 2951-2(LOINC) Sodium 137 136-145 mmol/L LAB 2823-3(LOINC) Potassium 4.0 3.5-5.3 mmol/L LAB 2075-0(LOINC) Chloride 102 98-107 mmol/L LAB 2028-9(LOINC) Carbon dioxide 28 21-32 mmo l/L LAB 02862-0(LOINC ) Anion gap 11 10-20 mmol/L LAB 3094-0(LOINC) Urea nitrogen 19 6-23 mg/d L LAB 2160-0(LOINC) Creatinine 0.88 0.50-1.05 mg/dL LAB 78959-9(LOINC ) Glomerular filtration rate/1.73 sq M.predicted 81 >60 mL/min/ 1.73m*2 Result Comment: Calculations of estimated GFR are performed using the 2020 CKD- EPI Study Refit equation without the race variable for the IDMS-Traceable creatinine methods. https://jasn.asnjournals.org/content/early//ASN.5130964838 LAB 12622-6(LOINC ) Calcium 8.7 8.6-10.3 mg/dL LAB 07470-8(LOINC ) Albumin 3.9 3.4-5.0 g/dL LAB 6768-6(LOINC) Alkaline phosphatase 87 33-110 U/L LAB 2885-2(LOINC) Protein 6.5 6.4-8.2 g/dL LAB 41566-3(LOINC ) Aspartate aminotransferase 23 9-39 U/L LAB 1975-2(LOINC) Bilirubin 0.3 0.0-1.2 mg/dL LAB 1743-4(LOINC) Alanine aminotransferase 34 7-45 U/L Result Comment: Patients spenser ated with Sulfasalazine may generate falsely decreased results for ALT. Performed By: #### 18225-4 # ### IRVIN MUNGUIA ([id number]) [facility]) [address] [place] [address] TRIACYLGLYCEROL LIPASE Collected: 11/09/2024 12:07 AM Status: F Source: [facility] Order Comment: Venipuncture immediately after or during the administration of Metamizole may lead to falsely low results. Testing should be performed immediately prior to Metamizole dosing. TYPE CODE TESTS RESULT OUT OF RANGE REFERENCE UNITS LAB 3040-3(LOINC) Triacylglycerol lipase 76 9-82 U/L Performed By: #### 3040-3 ## ## IRVIN MUNGUIA ([id number]) [facility]) [address] [place] [address] ERYTHROCYTE SEDIMENTATION RATE Collected: 11/09/2024 12:07 AM Status: F Source: [facility] TYPE CODE TESTS RESULT OUT OF RANGE REFERENCE UNITS LAB 4537-7(LOINC) Erythrocyte sedimentation rate 10 0-20 mm/h Performed By: #### 4537-7 ## ## IRVIN MUNGUIA ([id number]) [facility]) [address] [place] [address] ECG 12-LEAD Observed: 11/08/2024 11:19 PM Status: F Source: [facility] Ventricular Rate 76 Atrial Rate 76 P-R Interval 148 QRS Duration 88 Q-T Interval 402 QTC Calculation(Bazett) 452 P [place] 51 R [place] 41 T [place] 56 QRS Count 12 Q Onset 222 P Onset 148 P Offset 194 T Offset 423 QTC Fredericia 434 Diagnosis Normal sinus rhythm Normal ECG When compared with ECG of 02-JUL-2024 10:09, No significant change was found See ED provider note for full interpretation and clinical correlation Confirmed by Armando Jeong ([id number]) on 11/11/2024 9:52:47 AM BACTERIA UR CULT Observed: 10/23/2024 4:00 PM Status: F Source: [facility] ORGANISM ID: 1 10,000 -<50,000 CFU/ml Mixed microbiota No further workup. Mixed microbiota can be due to???urine???contamination with skin bacteria at time of collection or presence of a long-term urinary catheter. If a new culture is needed, please consider re-education of the patient on proper midstream collection technique or straight catheterization for???urine???collection. Streptococcus agalactiae (Group B streptococcus) was identified in this specimen, which is clinically relevant if the individual is . Performed By: #### 630-4 ### # [facility] CLIA [id number] [address] [place] [address] STATES OF [place] PROGRESS Observed: 10/23/2024 3:42 PM Status: COMPLETED Source: [facility] HNO ID: [id number] Author: INDU ARITA PA Service: ? Author Type: Physician Facing Baster Type: Progress Notes Filed: 10/23/2024 15:47 Note Text: This note was created using [employer] ([employer]riter. Subjective Dorothea Rutledge is a 48 year old female. HPI 48-year-old female presents for UTI symptoms. Patient states she has had UTI symptoms since yesterday. She has burning with urination, waves of cramping in the lower abdomen. No fevers. She had a little bit of vomiting last night. No flank pain. No blood in the urine. She did take Pyridium which did help with her symptoms. Patient states she has a history of UTIs with some drug-resistant bacteria. She states usually [employer] works for her. Has not been on antibiotics for several months. No other complaint. PAST MEDICAL HISTORY Diagnosis Date Abnormal LFTs [...] COLLECTION SPECIMEN BRUSHING/WASHING 06/11/15 Cholangiopancreatography (ERCP) inpt [facility] ESOPHAGOGASTRODUODENOSCOPY TRANSORAL DIAGNOSTIC EGD [facility]UH FILTER TONSILLECTOMY HX TOTAL ABDOMINAL HYSTERECT W/WO RMVL TUBE OVARY Hysterectomy, NOÉ ALLERGIES Morphine, Neurontin [Gabapentin], Penicillins, Sulfa (Sulfonamide Antibiotics), and Topamax [Topiramate] MEDICATIONS bumetanide (BUMEX) 1 mg tablet Take 1 tablet (1 mg) by mouth 2 times a day as needed (edema). PROMETHEGAN 25 mg suppository 25 mg by RECTAL route every 6 hours as needed. docusate sodium (COLACE ORAL) Take by mouth. ARIPiprazole (ABILIFY) 10 mg tablet Take 10 mg by mouth. benztropine (COGENTIN) 0.5 mg tablet Take 0.5 mg by mouth. divalproex DR (DEPAKOTE) 250 mg EC tablet TAKE 1 TABLET BY MOUTH TWICE DAILY for mood fenofibrate nanocrystallized (TRICOR) 145 mg tablet Take by mouth. ketamine 5% nasal spray solution (CPD) mix [...] needed, DSP# 40 mL x 5 refills rOPINIRole (REQUIP) 2 mg tablet See Instructions, TAKE 1 TABLET BY MOUTH DAILY, # 28 tab(s), 5 Refill(s), Pharmacy: [facility] [address], 161, cm, 02/06/20 14:12:00 EDT, Height, kg, 02/06/20 14:12:00 EDT, Dosing Weight warfarin (COUMADIN) 2.5 mg tablet Take 1 tablet by mouth daily or as directed by [facility] Ascorbic Acid (VITAMIN C) 1,000 mg tablet Take 1 tablet by mouth daily at bedtime. metoprolol tartrate, short acting, (LOPRESSOR) 25 mg [...] Take 500 mg by mouth once daily. tiZANidine (ZANAFLEX) 4 mg tablet Take 1 tablet by mouth every 8 hours as needed for muscle spasms for ten days (Patient not taking: Reported on 06/16/2024) omeprazole (PRILOSEC) 40 mg capsule Take by mouth. baclofen 10 mg tablet Take 1 tablet by mouth three times a day. clonazePAM (KLONOPIN) 0.5 mg tablet Take one [...] mouth once daily. 4 capsules a day furosemide (LASIX) 40 mg tablet Take 40 mg by mouth once daily. FAMILY HISTORY Problem Relation Age of Onset None Mother None Father None Brother None Sister Social History Tobacco Use Smoking status: Former Smokeless tobacco: Never Vaping Use Vaping status: current everyday user Review of Systems Constitutional: Negative for chills and fever. HENT: Negative for congestion, ear pain and sore throat. Respiratory: Negative for cough and shortness of breath. Cardiovascular: Negative for chest pain. Gastrointestinal: Negative for diarrhea and vomiting. Genitourinary: Positive for dysuria, frequency and urgency. Objective BP 117/81 Pulse 84 Temp 36.3 ?C (97.3 ?F) Resp 18 Wt 98.4 kg (216 lb 14.9 oz) SpO2 96% BMI 38.43 kg/m? Physical Exam Vitals and nursing note reviewed. Constitutional: General: She is not in acute distress. Appearance: Normal appearance. She is not toxic-appearing. HENT: Nose: Nose normal. Mouth/Throat: Mouth: Mucous membranes are moist. Eyes: Conjunctiva/sclera: Conjunctivae normal. Cardiovascular: Rate and Rhythm: Normal rate and regular rhythm. Pulmonary: Effort: Pulmonary effort is normal. Breath sounds: Normal breath sounds. Abdominal: General: Abdomen is flat. There is no distension. Palpations: Abdomen is soft. Tenderness: There is no abdominal tenderness. There is no right CVA tenderness, left CVA tenderness, guarding or rebound. Skin: General: Skin is warm and dry. Neurological: Mental Status: She is alert. Assessment and Plan ASSESSMENT/PLAN: 1. Urinary frequency - ICD9: 788.41, ICD10: R35.0 acute - UA positive for pascual esterase, hematuria, proteinuria, and nitrates - Send urine for culture -Discussed with patient I have no recent prior urine cultures indicating drug resistance. I did discuss black box warning of ciprofloxacin and that it would be better to start with a medication with less side effects since we do not have the culture yet. Patient agreeable. Rx for Macrobid given. Advised we will change antibiotic if needed once urine culture returns. - Begin treatment with Macrobid 100 mg BID for 7 days - Patient education for prevention given - UA DIP, URINE (POC) - BACTERIAL CULTURE, URINE Diagnosis and treatment plan were discussed and questions were answered to the patient's satisfaction. Pt acknowledged understanding of concepts and follow up plan. Specific signs and symptoms that would indicate the need for higher level of care were discussed in detail warranting prompt ER evaluation. BENIGNO Guevara CNOV Observed: 10/23/2024 3:15 PM Status: COMPLETED Source: [facility] Office Visit (WSTR) DOROTHEA RUTLEDGE ([id number]) 1975 F Date Time Provider Department 10/23/24 3:15 PM INDU ARITA [facility] During your visit today, we recorded the following information about you: Temperature Pulse Respiration Blood pressure 97.3 degrees 84/minute 18/minute 117/81 Weight 98.4 kg Indu Arita PA 10/23/2024 3:47 PM Signed This note was created using [employer] ([employer]riter. Subjective Dorothea Rutledge is a 48 year old female. HPI 48-year-old female presents for UTI symptoms. Patient states she has had UTI symptoms since yesterday. She has burning with urination, waves of cramping in the lower abdomen. No fevers. She had a little bit of vomiting last night. No flank pain. No blood in the urine. She did take Pyridium which did help with her symptoms. Patient states she has a history of UTIs with some drug-resistant bacteria. She states usually [employer] works for her. Has not been on antibiotics for several months. No other complaint. PAST MEDICAL HISTORY Diagnosis Date Abnormal LFTs Anxiety Common bile duct stone CVA (cerebral infarction) Depression DVT (deep venous thrombosis) ([facility]) Factor V Leiden ([facility]) HLD (hyperlipidemia) HTN (hypertension) Right upper quadrant pain PAST SURGICAL HISTORY Procedure Laterality Date APPENDECTOMY DELIVERY ONLY , low transverse and horizontal and vertical CHOLECYSTECTOMY Cholecystectomy COLONOSCOPY FLX DX W/COLLJ SPEC WHEN PFRMD Colonoscopy ERCP DX COLLECTION SPECIMEN BRUSHING/WASHING 06/11/15 Cholangiopancreatography (ERCP) inpt [facility] ESOPHAGOGASTRODUODENOSCOPY TRANSORAL DIAGNOSTIC EGD [facility] FILTER TONSILLECTOMY HX TOTAL ABDOMINAL HYSTERECT W/WO RMVL TUBE OVARY Hysterectomy, NOÉ ALLERGIES Morphine, Neurontin [Gabapentin], Penicillins, Sulfa (Sulfonamide Antibiotics), and Topamax [Topiramate] MEDICATIONS bumetanide (BUMEX) 1 mg tablet Take 1 tablet (1 mg) by mouth 2 times a day as needed (edema). PROMETHEGAN 25 mg suppository 25 mg by RECTAL route every 6 hours as needed. docusate sodium (COLACE ORAL) Take by mouth. ARIPiprazole (ABILIFY) 10 mg tablet Take 10 mg by mouth. benztropine (COGENTIN) 0.5 mg tablet Take 0.[address] (DEPAKOTE) 250 mg EC tablet TAKE 1 TABLET BY MOUTH TWICE DAILY for mood fenofibrate nanocrystallized (TRICOR) 145 mg tablet Take by mouth. ketamine 5% nasal spray solution (CPD) mix [...] needed, DSP# 40 mL x 5 refills rOPINIRole (REQUIP) 2 mg tablet See Instructions, TAKE 1 TABLET BY MOUTH DAILY, # 28 tab(s), 5 Refill(s), Pharmacy: [facility] [id number], 161, cm, 02/06/20 14:12:00 EDT, Height, kg, 02/06/20 14:12:00 EDT, Dosing Weight warfarin (COUMADIN) 2.5 mg tablet Take 1 tablet by mouth daily or as directed by [facility] Ascorbic Acid (VITAMIN C) 1,000 mg tablet Take 1 tablet by mouth daily at bedtime. metoprolol tartrate, short acting, (LOPRESSOR) 25 mg [...] Take 500 mg by mouth once daily. tiZANidine (ZANAFLEX) 4 mg tablet Take 1 tablet by mouth every 8 hours as needed for muscle spasms for ten days (Patient not taking: Reported on 06/16/2024) omeprazole (PRILOSEC) 40 mg capsule Take by mouth. baclofen 10 mg tablet Take 1 tablet by mouth three times a day. clonazePAM (KLONOPIN) 0.5 mg tablet Take one [...] mouth once daily. 4 capsules a day furosemide (LASIX) 40 mg tablet Take 40 mg by mouth once daily. FAMILY HISTORY Problem Relation Age of Onset None Mother None Father None Brother None Sister Social History Tobacco Use Smoking status: Former Smokeless tobacco: Never Vaping Use Vaping status: current everyday user Review of Systems Constitutional: Negative for chills and fever. HENT: Negative for congestion, ear pain and sore throat. Respiratory: Negative for cough and shortness of breath. Cardiovascular: Negative for chest pain. Gastrointestinal: Negative for diarrhea and vomiting. Genitourinary: Positive for dysuria, frequency and urgency. Objective BP 117/81 Pulse 84 Temp 36.3 ?C (97.3 ?F) Resp 18 Wt 98.4 kg (216 lb 14.9 oz) SpO2 96% BMI 38.43 kg/m? Physical Exam Vitals and nursing note reviewed. Constitutional: General: She is not in acute distress. Appearance: Normal appearance. She is not toxic-appearing. HENT: Nose: Nose normal. Mouth/Throat: Mouth: Mucous membranes are moist. Eyes: Conjunctiva/sclera: Conjunctivae normal. Cardiovascular: Rate and Rhythm: Normal rate and regular rhythm. Pulmonary: Effort: Pulmonary effort is normal. Breath sounds: Normal breath sounds. Abdominal: General: Abdomen is flat. There is no distension. Palpations: Abdomen is soft. Tenderness: There is no abdominal tenderness. There is no right CVA tenderness, left CVA tenderness, guarding or rebound. Skin: General: Skin is warm and dry. Neurological: Mental Status: She is alert. Assessment and Plan ASSESSMENT/PLAN: 1. Urinary frequency - ICD9: 788.41, ICD10: R35.0 acute - UA positive for pascual esterase, hematuria, proteinuria, and nitrates - Send urine for culture -Discussed with patient I have no recent prior urine cultures indicating drug resistance. I did discuss black box warning of ciprofloxacin and that it would be better to start with a medication with less side effects since we do not have the culture yet. Patient agreeable. Rx for Macrobid given. Advised we will change antibiotic if needed once urine culture returns. - Begin treatment with Macrobid 100 mg BID for 7 days - Patient education for prevention given - UA DIP, URINE (POC) - BACTERIAL CULTURE, URINE Diagnosis and treatment plan were discussed and questions were answered to the patient's satisfaction. Pt acknowledged understanding of concepts and follow up plan. Specific signs and symptoms that would indicate the need for higher level of care were discussed in detail warranting prompt ER evaluation. BENIGNO Guevara Allergies As of Date: 10/23/2024 Noted Allergy Reaction MORPHINE 04/12/2016 14 - Other: See Comments Comments: Hypotension NEURONTIN (GABAPENTIN) 10/23/2013 5 - Intolerance PENICILLINS 10/23/2013 5 - Intolerance SULFA (SULFONAMIDE ANTIBIOTICS) 10/23/2013 5 - Intolerance TOPAMAX (TOPIRAMATE) 10/23/2013 5 - Intolerance Date Reviewed: 10/23/2024 Reviewed by: Bertha Paul MA - Fully Assessed Reason for Visit: UTI [116] Cmt: Frequency, burning x3 days Primary Visit Diagnosis:Urinary frequency [R35.0] Order(s):UA DIP, URINE (POC) [[id number]] Order #: [id number]. #:[id number] BACTERIAL CULTURE, URINE [SQURCUL] Order #: [id number]. #:[id number] nitrofurantoin monohydrate and macrocrystal (MACROBID) 100 mg capsuleTake 1 capsule by mouth two times a day for 7 days.Disp: 14 capsuleRfl: 0 phenazopyridine (PYRIDIUM) 200 mg tabletTake 1 tablet by mouth three times a day as needed.Disp: 12 tabletRfl: 0 Prescriptions as of 10/23/2024 - bumetanide (BUMEX) 1 mg tablet Take 1 tablet (1 mg) by mouth 2 times a day as needed (edema). - PROMETHEGAN 25 mg suppository 25 mg by RECTAL route every 6 hours as needed. - docusate sodium (COLACE ORAL) Take by mouth. - nitrofurantoin monohydrate and macrocrystal (MACROBID) 100 mg capsule Take 1 capsule by mouth two times a day for 7 days. - phenazopyridine (PYRIDIUM) 200 mg tablet Take 1 tablet by mouth three times a day as needed. - ARIPiprazole (ABILIFY) 10 mg tablet Take 10 mg by mouth. - benztropine (COGENTIN) 0.5 mg tablet Take 0.5 mg by mouth. - divalproex DR (DEPAKOTE) 250 mg EC tablet TAKE 1 TABLET BY MOUTH TWICE DAILY for mood - fenofibrate nanocrystallized (TRICOR) 145 mg tablet Take by mouth. - tiZANidine (ZANAFLEX) 4 mg tablet Take 1 tablet by mouth every 8 hours as needed for muscle spasms for ten days - ketamine 5% nasal spray solution (CPD) [...] DAILY, # 28 tab(s), 5 Refill(s), Pharmacy: [id number], 161, cm, 02/06/20 14:12:00 EDT, Height, kg, [...] 8 hours as needed for nausea/vomiting. - potassium chloride 20 mEq TbER Take 20 mEq by mouth twice daily. - venlafaxine ER (EFFEXOR XR) 150 mg 24 hr capsule Take 150 mg by mouth once daily. - VALACYCLOVIR HCL (VALTREX ORAL) Take 500 mg by mouth once daily. 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] 11/26/2019 Factor 5 Leiden mutation, heterozygous (HCC) [D*11/26/2019 Anxiety and depression [F41.9, F32.A] 11/26/2019 Headaches [R51.9] 11/26/2019 Nicotine use disorder [F17.200] 11/26/2019 Obesity, Class I, BMI 30-34.9 [E66.811] 11/27/2019 Lymphocytopenia [D72.810] 12/02/2017 Personal history of other venous thrombosis and*12/02/2017 Acute pyelonephritis [N10] 01/05/2017 Alcoholic liver damage (HCC) [K70.9] 05/21/2021 Cerebrovascular accident (CVA) (HCC) [I63.9] 05/21/2021 Chronic diastolic heart failure (HCC) [I50.32] 05/21/2021 Deep vein thrombosis (DVT) (HCC) [I82.409] 05/21/2021 Dyspnea on exertion [R06.09] 05/21/2021 Gastrointestinal hemorrhage [K92.2] 05/21/2021 Genital herpes simplex [A60.00] 06/14/2016 History of alcohol abuse [F10.11] 05/21/2021 Injury of kidney [S37.009A] 05/21/2021 Insomnia [G47.00] 06/14/2016 Ischemic colitis (HCC) [K55.9] 04/10/2016 Hypertension [I10] 05/21/2021 [facility] current use of anticoagulant therapy *05/21/2021 Palpitations [R00.2] 05/21/2021 Pneumonia [J18.9] 05/21/2021 Presence of inferior vena cava filter [Z95.828] 12/02/2017 Rectal hemorrhage [K62.5] 05/21/2021 Restless legs [G25.81] 11/11/2017 History of CVA (cerebrovascular accident) [Z86.*05/21/2021 Jerking movements of extremities [R25.2] 05/21/2021 Prescriptions ordered this encounter Disp Refills Start End NITROFURANTOIN MONOHYDRATE AND MACROCR* 14 c* 0 10/23/2024 10/30/2024 Route: ORAL Sig: Take 1 capsule by mouth two times a day for 7 days. PHENAZOPYRIDINE 200 MG TABLET 12 t* 0 10/23/2024 Route: ORAL Sig: Take 1 tablet by mouth three times a day as needed. Medications Discontinued During This Encounter Prescriptions - nitrofurantoin monohydrate and macrocrystal (MACROBID) 100 mg capsule (Discontinued) Take 25 mg by mouth once daily. Encounter Status:Closed by INDU ARITA on 10/23/24 URINALYSIS COMPLETE W REFLEX CULTURE PANEL Collected: 10/18/2024 3:27 PM Status: F Source: [facility] TYPE CODE TESTS RESULT OUT OF RANGE REFERENCE UNITS LAB 5778-6(LOINC) Color Light-Yellow Lig ht-Yellow , Yellow, Dark-Yellow LAB 5767-9(LOINC) Appearance Clear Clear LAB 50077-0(LOINC) Specific gravity 1.022 1.005-1. 035 LAB 31025-9(LOINC) pH 6.5 5.0, 5.5, 6.0, 6.5, 7.0, 7.5, 8.0 LAB 29917-3(LOINC) Protein NEGATIVE NEGAT DINA, 10 (TRACE), 20 (TRACE) mg/dL LAB 55786-1(LOINC) Glucose Normal Normal mg/dL LAB 37243-5(LOINC) Erythrocytes NEGATIVE NEGATIVE LAB 44722-9(LOINC) Ketones NEGATIVE NEGATIVE mg/dL LAB 54079-0(LOINC) Bilirubin NEGATIVE NEGATIVE LAB 21271-3(LOINC) Urobilinogen Normal Normal mg/d L LAB 72143-0(LOINC) Nitrite NEGATIVE NEGATIVE LAB 61911-0(LOINC) Leukocyte esterase NEGATIVE NEGATIVE Performed By: #### 32028-0 # ### BRYAN EZRA ([id number]) [facility] [address] [place] [address] COMPLETE BLOOD COUNT W AUTO DIFFERENTIAL PANEL Collected: 10/18/2024 2:11 PM Status: F Source: [facility] TYPE CODE TESTS RESULT OUT OF RANGE REFERENCE UNITS LAB 6690-2(LOINC) Leukocytes 7.6 4.4-11.3 x10*3/ uL LAB 63365-1(LOINC ) Erythrocytes.nuc leated/100 leukocytes 0.0 0.0-0.0 /100 WBCs LAB 789-8(LOINC) Erythrocytes 4.02 4.00-5.20 x10* 6/uL LAB 718-7(LOINC) Hemoglobin 12.3 12.0-16.0 g/dL LAB 4544-3(LOINC) Hematocrit 38.0 36.0-46.0 % LAB 787-2(LOINC) Erythrocyte mean corpuscular volume 95 80-100 fL LAB 785-6(LOINC) Erythrocyte mean corpuscular hemoglobin 30.6 26.0-34.0 pg LAB 786-4(LOINC) Erythrocyte mean corpuscular hemoglobin concentration 32.4 32.0-36.0 g/dL LAB 788-0(LOINC) Erythrocyte distribution width 13.3 11.5-14.5 % LAB 777-3(LOINC) Platelets 267 150-450 x10*3/uL LAB 770-8(LOINC) Neutrophils/100 leukocytes 72.3 40.0-80.0 % LAB 96753-6(LOINC ) Granulocytes.imm ature/100 leukocytes 0.3 0.0-0.9 % Result Comment: Immature Gra nulocyte Count (IG) includes promyelocytes, myelocytes and metamyelocytes but does not include bands. Percent differential counts (%) should be interpreted in the context of the absolute cell counts (cells/UL). LAB 736-9(LOINC) Lymphocytes/100 leukocytes 18.6 13.0-44.0 % LAB 5905-5(LOINC) Monocytes/100 leukocytes 6.3 2.0-10.0 % LAB 713-8(LOINC) Eosinophils/100 leukocytes 2.1 0.0-6.0 % LAB 706-2(LOINC) Basophils/100 leukocytes 0.4 0.0-2.0 % LAB 751-8(LOINC) Neutrophils 5.48 1.20-7.70 x10*3 /uL Result Comment: Percent diff erential counts (%) should be interpreted in the context of the absolute cell counts (cells/uL). LAB 45819-9(LOINC ) Granulocytes.imm ature 0.02 0.00-0.70 x10*3/uL LAB 731-0(LOINC) Lymphocytes 1.41 1.20-4.80 x10*3 /uL LAB 742-7(LOINC) Monocytes 0.48 0.10-1.00 x10*3/u L LAB 711-2(LOINC) Eosinophils 0.16 0.00-0.70 x10*3 /uL LAB 704-7(LOINC) Basophils 0.03 0.00-0.10 x10*3/u L Performed By: #### [id number] # ### IRVIN MUNGUIA ([id number]) [facility] [address] [place] [address] COMPREHENSIVE METABOLIC 2000 PANEL Collected: 10/18/2024 2:11 PM Status: F Source: [facility] TYPE CODE TESTS RESULT OUT OF RANGE REFERENCE UNITS LAB 2345-7(LOINC) Glucose 109 High 74-99 mg/dL LAB 2951-2(LOINC) Sodium 139 136-145 mmol/L LAB 2823-3(LOINC) Potassium 3.7 3.5-5.3 mmol/L LAB 2075-0(LOINC) Chloride 104 98-107 mmol/L LAB 2027-9(LOINC) Carbon dioxide 27 21-32 mmo l/L LAB 38078-2(LOINC ) Anion gap 12 10-20 mmol/L LAB 3094-0(LOINC) Urea nitrogen 15 6-23 mg/d L LAB 2160-0(LOINC) Creatinine 0.68 0.50-1.05 mg/dL LAB 38965-2(LOINC ) Glomerular filtration rate/1.73 sq M.predicted >90 >60 mL/min/ 1.73m*2 Result Comment: Calculations of estimated GFR are performed using the 2020 CKD- EPI Study Refit equation without the race variable for the IDMS-Traceable creatinine methods. https://jasn.asnjournals.org/content/early//ASN.1291203131 LAB 09611-2(LOINC ) Calcium 9.1 8.6-10.3 mg/dL LAB 69533-4(LOINC ) Albumin 3.8 3.4-5.0 g/dL LAB 6768-6(LOINC) Alkaline phosphatase 89 33-110 U/L LAB 2885-2(LOINC) Protein 6.3 Low 6.4-8.2 g/dL LAB 51278-0(LOINC ) Aspartate aminotransferase 47 High 9-39 U/L LAB 1975-2(LOINC) Bilirubin 0.3 0.0-1.2 mg/dL LAB 1743-4(LOINC) Alanine aminotransferase 72 High 7-45 U/L Result Comment: Patients spenser ated with Sulfasalazine may generate falsely decreased results for ALT. Performed By: #### 27155-3 # ### IRVIN MUNGUIA ([id number]) [facility] [address] [place] [address] TRIACYLGLYCEROL LIPASE Collected: 10/18/2024 2:11 PM Status: F Source: [facility] Order Comment: Venipuncture immediately after or during the administration of Metamizole may lead to falsely low results. Testing should be performed immediately prior to Metamizole dosing. TYPE CODE TESTS RESULT OUT OF RANGE REFERENCE UNITS LAB 3040-3(LOINC) Triacylglycerol lipase 58 9-82 U/L Performed By: #### 3040-3 ## ## IRVIN MUNGUIA ([id number]) [facility]) [facility] [place] [id number] XR ABDOMEN 2 VIEWS WITH CHEST 1 VIEW Observed: 10/18/2024 1:39 PM Status: F Source: [facility] STUDY: Single View Chest and Abdomen Radiographs; 10/18/2024 at 1:57 PM INDICATION: Abdominal pain. COMPARISON: XR chest 06/26/24, 05/30/24. XR abdomen 03/17/24, 03/01/24. CTA chest, CT abdomen and pelvis 06/26/24. ACCESSION NUMBER(S): [id number] ORDERING CLINICIAN: Thang Hunter TECHNIQUE: Single view of the chest and two view(s) of the abdomen (five images). FINDINGS: CARDIOMEDIASTINAL SILHOUETTE: The heart is borderline enlarged.. LUNGS: Lungs are clear. LifePort in place on the right terminating at the cavoatrial junction. ABDOMEN: Bowel gas pattern is normal without obstruction or ileus. There is a caval umbrella in place. The limbs are splayed. There are clips in the right upper quadrant. There are no convincing calculi or abnormal calcifications. BONES: No acute osseous changes IMPRESSION: No acute pulmonary pathology. No evidence of bowel obstruction or perforation.. Signed by Jorge A Soriano MD URINALYSIS COMPLETE W REFLEX CULTURE PANEL Collected: 09/22/2024 10:26 AM Status: F Source: [facility] TYPE CODE TESTS RESULT OUT OF RANGE REFERENCE UNITS LAB 5778-6(LOINC) Color Light-Yellow Lig ht-Yellow , Yellow, Dark-Yellow LAB 5767-9(LOINC) Appearance Turbid Normal Clear LAB 85170-4(LOINC) Specific gravity 1.018 1.005-1. 035 LAB 52773-4(LOINC) pH 5.5 5.0, 5.5, 6.0, 6.5, 7.0, 7.5, 8.0 LAB 21836-9(LOINC) Protein NEGATIVE NEGAT DINA, 10 (TRACE), 20 (TRACE) mg/dL LAB 93639-6(LOINC) Glucose Normal Normal mg/dL LAB 65842-7(LOINC) Erythrocytes NEGATIVE NEGATIVE LAB 73531-4(LOINC) Ketones NEGATIVE NEGATIVE mg/dL LAB 23377-7(LOINC) Bilirubin NEGATIVE NEGATIVE LAB 94322-4(LOINC) Urobilinogen Normal Normal mg/d L LAB 46445-2(LOINC) Nitrite NEGATIVE NEGATIVE LAB 14111-5(LOINC) Leukocyte esterase NEGATIVE NEGATIVE Performed By: #### 34235-5 # ### BRYAN EZRA ([id number]) [facility] [address] [place] [address] COMPREHENSIVE METABOLIC 2000 PANEL Collected: 09/22/2024 10:26 AM Status: F Source: [facility] TYPE CODE TESTS RESULT OUT OF RANGE REFERENCE UNITS LAB 2345-7(LOINC) Glucose 121 High 74-99 mg/dL LAB 2951-2(LOINC) Sodium 138 136-145 mmol/L LAB 2823-3(LOINC) Potassium 3.9 3.5-5.3 mmol/L LAB 2075-0(LOINC) Chloride 102 98-107 mmol/L LAB 8-9(LOINC) Carbon dioxide 27 21-32 mmo l/L LAB 06921-1(LOINC ) Anion gap 13 10-20 mmol/L LAB 3094-0(LOINC) Urea nitrogen 17 6-23 mg/d L LAB 2160-0(LOINC) Creatinine 0.83 0.50-1.05 mg/dL LAB 39597-7(LOINC ) Glomerular filtration rate/1.73 sq M.predicted 87 >60 mL/min/ 1.73m*2 Result Comment: Calculations of estimated GFR are performed using the 2020 CKD- EPI Study Refit equation without the race variable for the IDMS-Traceable creatinine methods. https://jasn.asnjournals.org/content/early//ASN.5789385516 LAB 04799-0(LOINC ) Calcium 9.5 8.6-10.3 mg/dL LAB 75848-6(LOINC ) Albumin 4.3 3.4-5.0 g/dL LAB 6768-6(LOINC) Alkaline phosphatase 102 33-110 U/L LAB 2885-2(LOINC) Protein 6.7 6.4-8.2 g/dL LAB 86706-2(LOINC ) Aspartate aminotransferase 55 High 9-39 U/L LAB 1975-2(LOINC) Bilirubin 0.3 0.0-1.2 mg/dL LAB 1743-4(LOINC) Alanine aminotransferase 99 High 7-45 U/L Result Comment: Patients spenser ated with Sulfasalazine may generate falsely decreased results for ALT. Performed By: #### 43057-6 # ### IRVIN MUNGUIA ([id number]) [facility] [address] [place] [address] HEMOGLOBIN A1C/HEMOGLOBIN.TOTAL Collect ed: 09/22/2024 10:26 AM Status: F Source: [facility] Order Comment: Diagnosis of Diabetes-Adults Non-Diabetic: < or = 5.6% Increased risk for developing diabetes: 5.7-6.4% Diagnostic of diabetes: > or = 6.5% TYPE CODE TESTS RESULT OUT OF RANGE REFERENCE UNITS LAB 4548-4(LOINC ) Hemoglobin A1c/Hemoglob in.total 5.8 High See comment % LAB 82095-8(LOIN C) Estimated average glucose 120 Not Established mg/dL Performed By: #### 4548-4 ## ## ANDI Cotter ([id number]) [facility] ([facility]) [address] [place] [address] BI MAMMO BILATERAL SCREENING TOMOSYNTHESIS Observed: 09/22/2024 10:16 AM Status: F Source: [facility] Interpreted By: Rodolfo Ware, STUDY: BI MAMMO BILATERAL SCREENING TOMOSYNTHESIS; 09/22/2024 10:39 am ACCESSION NUMBER(S): [id number] ORDERING CLINICIAN: HOLLEY SIMS INDICATION: Screening. ,Z12.31 Encounter for screening mammogram for malignant neoplasm of breast COMPARISON: None. FINDINGS: 2D and tomosynthesis images were reviewed at 1 mm slice thickness. Density: There are scattered areas of fibroglandular density. No suspicious masses or calcifications are identified. CAD was utilized. IMPRESSION: No mammographic evidence of malignancy. BI-RADS CATEGORY: BI-RADS Category: 1 Negative. Recommendation: Annual Screening. Recommended Date: 1 Year. Laterality: Bilateral. For any future breast imaging appointments, please call [phone]). MACRO: None Signed by: Sree Ware 09/24/2024 10:52 AM Dictation workstation: [id number] CT THORACIC SPINE WO IV CONTRAST Observed: 08/22/2024 1:29 PM Status: F Source: [facility] Interpreted By: Elham Morocho, STUDY: CT THORACIC SPINE WO IV CONTRAST; 08/22/2024 2:05 pm INDICATION: Signs/Symptoms:Diagnosis of thoracic compression fracture on the plain films. ,S22.000A Wedge compression fracture of unspecified thoracic vertebra, initial encounter for closed fracture (Multi) COMPARISON: CT chest 06/26/2024 ACCESSION NUMBER(S): [id number] ORDERING CLINICIAN: TIANNA RASMUSSEN TECHNIQUE: Axial CT images of the thoracic spine are obtained. Axial, coronal and sagittal reconstructions are submitted for review. FINDINGS: For counting purposes the 1st rib-bearing vertebral body is labeled T1. Degenerative changes are noted within the lower cervical spine. Alignment: Within normal limits. Vertebrae/Intervertebral Discs: The visualized osseous structures appear osteopenic. There is a Schmorl's node and mild superior endplate depression at T3, similar to the prior CT chest 06/26/2024. There is a mild superior endplate depression at T4 which appears mildly more prominent than the prior exam, however may be secondary to technique. There is no significant loss of vertebral body height. There is no osseous retropulsion into the spinal canal. Vertebral body heights otherwise appear maintained. The disc spaces are preserved. No evidence of high-grade spinal canal or neural foraminal stenosis. Paraspinous Soft Tissues: Prevertebral soft tissues are not thickened. Calcified granuloma within the right lung. A right MediPort catheter tip terminates at the atrial caval junction. Old healed fracture deformities of the posterior ribs on the right. IMPRESSION: Mild superior endplate depressions at T3 and T4 similar to minimally more prominent compared to the prior exam 06/26/2024, however may be secondary to differences in technique. There is no significant loss of vertebral body height or osseous retropulsion into the spinal canal. MRI of the thoracic spine could be performed for further characterization as clinically warranted. MACRO: None Signed by: Adry Morocho 08/23/2024 9:53 AM Dictation workstation: [id number] URINALYSIS COMPLETE W REFLEX CULTURE PANEL Collected: 08/18/2024 4:55 PM Status: F Source: [facility] TYPE CODE TESTS RESULT OUT OF RANGE REFERENCE UNITS LAB 5778-6(LOINC) Color Dark-Yellow Ligh t-Yellow , Yellow, Dark-Yellow LAB 5767-9(LOINC) Appearance Turbid Normal Clear LAB 06699-8(LOINC) Specific gravity 1.014 1.005-1.035 LAB 46315-8(LOINC) pH 6.0 5.0, 5.5, 6.0, 6.5, 7.0, 7.5, 8.0 LAB 15474-3(LOINC) Protein NEGATIVE NEGAT DINA, 10 (TRACE), 20 (TRACE) mg/dL LAB 29642-2(LOINC) Glucose Normal Normal mg/dL LAB 08825-0(LOINC) Erythrocytes 1.0 (3+) Abnormal NEGATIVE LAB 10363-6(LOINC) Ketones NEGATIVE NEGATIVE mg/dL LAB 52416-1(LOINC) Bilirubin NEGATIVE NEGATIVE LAB 67424-0(LOINC) Urobilinogen Normal Normal mg/d L LAB 32644-8(LOINC) Nitrite 2+ Abnormal NEGATIVE LAB 13815-7(LOINC) Leukocyte esterase 500 Pascual/???L Abnormal NEGATIVE Performed By: #### 06170-7 # ### BRYAN EZRA ([id number]) [facility]) [facility] [place] [address] URINALYSIS MICROSCOPIC PANEL Collected: 08/18/2024 4:55 PM Status: F Source: [facility] TYPE CODE TESTS RESULT OUT OF RANGE REFERENCE UNITS LAB 85579-4(LOINC ) Leukocytes >50 Abnormal 1-5, NONE /HPF LAB 27112-9(LOINC ) Leukocyte clumps RARE Reference range not established. /HPF LAB 71878-8(LOINC ) Erythrocytes >20 Abnormal NONE, 1-2, 3-5 /HPF LAB 90728-1(LOINC ) Epithelial cells.squamous 1-9 (SPARSE) Reference range not established. /HPF LAB 14566-3(LOINC ) Bacteria 2+ Abnormal NONE SEEN /HPF Performed By: #### 61930-4 # ### IRVIN MUNGUIA ([id number]) [facility] [address] [place] [address] BACTERIA IDENTIFIED Observed: 08/18/2024 4:55 PM Status: F Source: [facility] Test: Urine Culture Specimen Source: Clean Catch/Voided Specimen Type: Urine Specimen Date: 08/18/20241654 Result Date: 08/21/2024 111 Result Status: Final result Abnormal: Yes Resulting Lab: [facility] [address] [place] [id number] CULTURE >=100,000 CFU/mL Klebsiella (Enterobacter) aerogenes (Abnormal) SECOND and THIRD generation cephalosporin results are not reported as resistance may develop during therapy with these agents. SUSCEPTIBILITY Klebsiella (Enterobacter) aerogenes METHOD MICROSCAN AMOXICILLIN/CLAVULANATE 16/8 ug/ml Resistant AMPICILLIN 16.000 ug/ml Resistant AMPICILLIN/SULBACTAM <=4/2 ug/ml Resistant CEFAZOLIN >16 ug/ml Resistant CEFEPIME <=2 ug/ml Susceptible CIPROFLOXACIN <=0.250 ug/ml Susceptible GENTAMICIN <=2.000 ug/ml Susceptible NITROFURANTOIN 64 ug/ml Intermediate PIPERACILLIN/TAZOBACTAM <=8.000 ug/ml Susceptible TRIMETHOPRIM/SULFAMETHOXAZOLE <=2/38 ug/ml Susceptible Performed By: #### 630-4 ### # ANDI Cotter ([id number]) [facility] ([facility]) [address] US LOWER EXTREMITY VENOUS DUPLEX LEFT Observed: 08/03/2024 9:33 AM Status: F Source: [address] [address] ext-2528, Vascular Lab Report [facility] US LOWER EXTREMITY VENOUS DUPLEX LEFT Patient Name: DOROTHEA RUTLEDGE Reading [address] Kirby Guillen MD, Physician: CLIFF Study Date: 08/03/2024 Ordering 15035 ARMANDO Dillon Provider: JEAN-PAUL MRN/PID: [id number] Fellow: Technologist: Luis A England RVT Date of 1975 Technologist 2: /Age: years Gender: F Admission Status: Emergency Location [facility] Performed: Diagnosis/ICD: Localized (leg) edema-R60.0 CPT Codes: 61022 Peripheral venous duplex scan for DVT Limited Pertinent History: Previous DVT. CONCLUSIONS: Left Lower Venous Insufficiency: There is reflux noted in the common femoral, proximal femoral and popliteal veins. Right Lower Venous: The right common femoral vein demonstrates normal spontaneous and respirophasic flow. Left Lower Venous: No evidence of acute deep vein thrombus visualized in the left lower extremity. There are chronic changes visualized in the common femoral, proximal femoral, mid femoral, distal Femoral and popliteal veins. Comparison: Compared with study from 07/04/2024, no significant change.In left leg. Imaging & Doppler Findings: Right Flow CFV Spontaneous/Phasic Left Compress Thrombus Flow Distal External Iliac Spontaneous/Phasic CFV Partial Chronic Reflux PFV Yes None FV Proximal Partial Chronic Reflux FV Mid Partial Chronic FV Distal Partial Chronic Popliteal Partial Chronic Reflux Peroneal Yes None PTV Yes None [id number] Kirby Guillen MD, CLIFF Final BACTERIA IDENTIFIED Observed: 08/02/2024 4:19 PM Status: F Source: [facility] Test: Urine Culture Specimen Source: Clean Catch/Voided Specimen Type: Urine Specimen Date: 08/02/2024 1619 Result Date: 08/03/20242024 Result Status: Final result Abnormal: Yes Resulting Lab: [facility] [address] [facility] [address] CULTURE Multiple organisms present, probable contamination. Repeat culture if clinically indicated. (Abnormal) Performed By: #### 630-4 ### # ANDI Cotter ([id number]) [facility] ([facility]) [address] [place] [address] [facility] US LOWER EXTREMITY VENOUS INSUFFICIENCY BILATERAL Observed: 07/04/2024 1:08 PM Status: F Source: [facility] ter, Vascular Lab [address] [facility] [address], [place] [address] and Vascular Lab Report [facility] US LOWER EXTREMITY VENOUS INSUFFICIENCY BILATERAL Patient Name: DOROTHEA Lees Physician: [id number] Sun Galloway MD Study Date: 07/04/2024 Ordering Physician: [id number] PRICE MRN/PID: [id number] Technologist: Nicola Horvath RVT, [facility] Technologist 2: Date of /Age: 4 1975 / 48 years Gender: F Admission Status: Outpatient Location Performed: [facility] Diagnosis/ICD: Asymptomatic varicose veins of bilateral lower extremities-I83.93 CPT Codes: 62022 Venous reflux study VV complete Patient Position: Study performed in a reverse Trendelenburg position. Patient History Previous DVT. CONCLUSIONS: Right Lower Venous Insufficiency: Reflux is noted in the saphenous popliteal junction, saphenofemoral junction and proximal thigh great saphenous veins. There is reflux noted in the common femoral, mid femoral and popliteal veins. Left Lower Venous Insufficiency: Reflux is noted in the saphenofemoral junction vein. There is reflux noted in the common femoral, mid femoral and popliteal veins. Right Lower Venous: There are chronic changes visualized in the mid femoral, distal Femoral and popliteal veins. Additional Findings; Lymph nodes Left Lower Venous: There are chronic changes visualized in the common femoral, proximal femoral, distal Femoral, mid femoral and popliteal veins. Imaging & Doppler Findings: Right Compress Thrombus Diam Depth Time SFJ Yes None 7.0 mm 3.90 sec Prox Thigh GSV Yes None 6.8 mm 23.0 mm 2.60 sec Mid Thigh GSV Yes None Knee GSV Yes None Prox Calf GSV Yes None Mid Calf GSV Yes None Dist Calf GSV Yes None SPJ Yes None 2.5 mm 1.00 sec SSV Prox Yes None SSV Mid Yes None SSV Distal Yes None Common FV 2.50 sec Mid Femoral Vein 2.20 sec Popliteal Vein 2.60 sec Left Compress Thrombus Diam Time SFJ Yes None 6.7 mm 1.30 sec Prox Thigh GSV Yes None Mid Thigh GSV Yes None Knee GSV Yes None Prox Calf GSV Yes None Mid Calf GSV Yes None Dist Calf GSV Yes None SPJ Yes None SSV Prox Yes None SSV Mid Yes None SSV Distal Yes None Common FV 2.80 sec Mid Femoral Vein 2.50 sec Popliteal Vein 1.90 sec Right Compressible Thrombus Flow Distal External Iliac None CFV Yes None Reflux PFV Yes None FV Proximal Yes None FV Mid Partial Chronic Reflux FV Distal Partial Chronic Popliteal Partial Chronic Reflux Peroneal Yes None PTV Yes None Left Compress Thrombus Flow Distal External Iliac None Spontaneous/Phasic CFV Partial Chronic Reflux PFV Yes None FV Proximal Partial Chronic FV Mid Partial Chronic Reflux FV Distal Yes Chronic Popliteal Partial Chronic Reflux Peroneal Yes None PTV Yes None 01945 Sun Galloway MD Final ECG 12-LEAD Observed: 07/02/2024 10:09 AM Status: F Source: [facility] Ventricular Rate 110 Atrial Rate 110 P-R Interval 144 QRS Duration 86 Q-T Interval 352 QTC Calculation(Bazett) 476 P [place] 40 R [place] 48 T [place] 20 QRS Count 18 Q Onset 207 P Onset 135 P Offset 188 T Offset 383 QTC Fredericia 431 Diagnosis Sinus tachycardia Otherwise normal ECG When compared with ECG of 26-JUN-2024 14:12, No significant change was found See ED provider note for full interpretation and clinical correlation Confirmed by Zuri Lange ([id number]) on 07/03/2024 12:58:05 PM URINALYSIS COMPLETE W REFLEX CULTURE PANEL Collected: 06/26/2024 4:01 PM Status: F Source: [facility] TYPE CODE TESTS RESULT OUT OF RANGE REFERENCE UNITS LAB 5778-6(LOINC) Color Light-Yellow Lig ht-Yellow , Yellow, Dark-Yellow LAB 5767-9(LOINC) Appearance Clear Clear LAB 72525-3(LOINC) Specific gravity 1.021 1.005-1. 035 LAB 64621-2(LOINC) pH 6.0 5.0, 5.5, 6.0, 6.5, 7.0, 7.5, 8.0 LAB 05598-2(LOINC) Protein NEGATIVE NEGAT DINA, 10 (TRACE), 20 (TRACE) mg/dL LAB 85791-6(LOINC) Glucose Normal Normal mg/dL LAB 11822-0(LOINC) Erythrocytes NEGATIVE NEGATIVE LAB 18966-1(LOINC) Ketones NEGATIVE NEGATIVE mg/dL LAB 16303-4(LOINC) Bilirubin NEGATIVE NEGATIVE LAB 07249-7(LOINC) Urobilinogen Normal Normal mg/d L LAB 80921-6(LOINC) Nitrite NEGATIVE NEGATIVE LAB 34037-6(LOINC) Leukocyte esterase NEGATIVE NEGATIVE Performed By: #### 72418-8 # ### BRYAN EZRA ([id number]) [facility] [address] [place] [address] CT ANGIO CHEST FOR PULMONARY EMBOLISM Observed: 06/26/2024 3:46 PM Status: F Source: [facility] Interpreted By: Anusha Ibarra, STUDY: CT ANGIO CHEST FOR PULMONARY EMBOLISM; 06/26/2024 4:29 pm INDICATION: Signs/Symptoms:recent PE, worsening SOB, subtheraputic INR. COMPARISON: Chest radiograph 06/26/2024, chest CT 06/16/2024, 05/30/2024, 02/27/2024 ACCESSION NUMBER(S): [id number] ORDERING CLINICIAN: RENATO MCCOY TECHNIQUE: Helical data acquisition of the chest was obtained intravenous contrast was given.. Images were reformatted in axial, coronal, and sagittal planes. 3D MIP images were generated and reviewed. FINDINGS: LUNGS and AIRWAYS: There is no infiltrate or pleural fluid. There are bilateral benign calcified granulomas. RASHIDA AND MEDIASTINUM: There is no hilar or mediastinal adenopathy. HEART and VESSELS: There is a right internal jugular port with the tip in the superior vena cava. There is no thoracic aortic aneurysm or dissection. There is good opacification of the pulmonary arterial system with no embolism. No coronary artery calcifications are seen. The study is not optimized for evaluation of coronary arteries. The cardiac chambers are not enlarged. No evidence of pericardial effusion. UPPER ABDOMEN: Status post cholecystectomy. CHEST WALL and OSSEOUS STRUCTURES: There are no suspicious osseous lesions. Multilevel degenerative changes are present IMPRESSION: 1. No pulmonary embolism. 2. No acute process in the lungs. MACRO: None Signed by: Kaylene Ibarra 06/26/2024 4:42 PM Dictation workstation: [id number] COMPLETE BLOOD COUNT PANEL Collected: 06/26/2024 3:11 PM Status: F Source: [facility] TYPE CODE TESTS RESULT OUT OF RANGE REFERENCE UNITS LAB 6690-2(LOINC) Leukocytes 8.7 4.4-11.3 x10*3/ uL LAB 00681-3(LOINC) Erythrocytes.nuc l eated/100 leukocytes 0.0 0.0-0.0 /100 WBCs LAB 789-8(LOINC) Erythrocytes 5.56 High 4.00-5.20 x10* 6/uL LAB 718-7(LOINC) Hemoglobin 15.5 12.0-16.0 g/dL LAB 4544-3(LOINC) Hematocrit 48.9 High 36.0-46.0 % LAB 787-2(LOINC) Erythrocyte mean corpuscular volume 88 80-100 fL LAB 785-6(LOINC) Erythrocyte mean corpuscular hemoglobin 27.9 26.0-34.0 pg LAB 786-4(LOINC) Erythrocyte mean corpuscular hemoglobin concentration 31.7 Low 32.0-36.0 g/dL LAB 788-0(LOINC) Erythrocyte distribution width 15.6 High 11.5-14.5 % LAB 777-3(LOINC) Platelets 340 150-450 x10*3/uL Performed By: #### 04549-1 # ### BRYAN EZRA ([id number]) [facility]) [address] [place] [address] TROPONIN I.CARDIAC PANEL Collected: 10/ 04/2024 3:11 PM Status: F Source: [facility] Order Comment: Less than 99t h percentile of normal range cutoff- Female and children under 18 years old <14 ng/L; Male <21 ng/L: Negative Repeat testing should be performed if clinically indicated. Female and children under 18 years old 14-50 ng/L; Male 21-50 ng/L: Consistent with possible cardiac damage and possible increased clinical risk. Serial measurements may help to assess extent of myocardial damage. >50 ng/L: Consistent with cardiac damage, increased clinical risk and myocardial infarction. Serial measurements may help assess extent of myocardial damage. NOTE: Children less than 1 year old may have higher baseline troponin levels and results should be interpreted in conjunction with the overall clinical context. NOTE: Troponin I testing is performed using a different testing methodology at [facility] than at other legacy [facility]. Direct result comparisons should only be made within the same method. TYPE CODE TESTS RESULT OUT OF RANGE REFERENCE UNITS LAB 16617-1(LOINC) Troponin I.cardiac panel 3 0-13 ng/L Performed By: #### 95045-9 # ### IRVIN MUNGUIA ([id number]) [facility] [address] [place] [address] COAGULATION TISSUE FACTOR INDUCED Collected: 06/26/2024 3:10 PM Status: F Source: [facility] TYPE CODE TESTS RESULT OUT OF RANGE REFERENCE UNITS LAB 5902-2(LOINC) Coagulation tissue factor induced 13.6 High 9.8-12.8 seconds LAB 6301-6(LOINC) Coagulation tissue factor induced.INR 1.2 High 0.9-1.1 NA Performed By: #### 5902-2 ## ## IRVIN MUNGUIA ([id number]) [facility]) [address] [place] [address] COMPREHENSIVE METABOLIC 2000 PANEL Collected: 06/26/2024 3:10 PM Status: F Source: [facility] TYPE CODE TESTS RESULT OUT OF RANGE REFERENCE UNITS LAB 2345-7(LOINC) Glucose 138 High 74-99 mg/dL LAB 2951-2(LOINC) Sodium 137 136-145 mmol/L LAB 2823-3(LOINC) Potassium 3.9 3.5-5.3 mmol/L LAB 2075-0(LOINC) Chloride 101 98-107 mmol/L LAB 2028-9(LOINC) Carbon dioxide 25 21-32 mmo l/L LAB 62382-5(LOINC ) Anion gap 15 10-20 mmol/L LAB 3094-0(LOINC) Urea nitrogen 26 High 6-23 mg/d L LAB 2160-0(LOINC) Creatinine 0.84 0.50-1.05 mg/dL LAB 15305-2(LOINC ) Glomerular filtration rate/1.73 sq M.predicted 85 >60 mL/min/ 1.73m*2 Result Comment: Calculations of estimated GFR are performed using the 2020 CKD- EPI Study Refit equation without the race variable for the IDMS-Traceable creatinine methods. https://jasn.asnjournals.org/content/early//ASN.8042175673 LAB 37828-1(LOINC ) Calcium 10.1 8.6-10.3 mg/dL LAB 11687-5(LOINC ) Albumin 5.2 High 3.4-5.0 g/dL LAB 6768-6(LOINC) Alkaline phosphatase 128 High 33-110 U/L LAB 2885-2(LOINC) Protein 8.6 High 6.4-8.2 g/dL LAB 23967-4(LOINC ) Aspartate aminotransferase 25 9-39 U/L LAB 1975-2(LOINC) Bilirubin 0.3 0.0-1.2 mg/dL LAB 1743-4(LOINC) Alanine aminotransferase 40 7-45 U/L Result Comment: Patients spenser ated with Sulfasalazine may generate falsely decreased results for ALT. Performed By: #### 15333-2 # ### BRYAN EZRA ([id number]) [facility] [address] [place] [address] XR CHEST 1 VIEW Observed: 06/26/2024 2:21 PM Status: F Source: [facility] Interpreted By: Jennifer Oscar, STUDY: Chest, single AP view. INDICATION: Signs/Symptoms:recent PE. COMPARISON: 05/30/2024 ACCESSION NUMBER(S): [id number] ORDERING CLINICIAN: RENATO MCCOY FINDINGS: Right chest wall MediPort tip in the cavoatrial junction. The cardiac silhouette size is within normal limits. There is no focal consolidation, edema or pneumothorax. No sizeable pleural effusion. No acute osseous abnormality. Calcified granuloma in the peripheral right lower lung. Remote healed right posterior rib fractures. Likely chronic elevated right hemidiaphragm is similar to prior. IMPRESSION: 1. No acute cardiopulmonary process. MACRO: None. Signed by: Gabriela Oscar 06/26/2024 2:40 PM Dictation workstation: [id number] ECG 12-LEAD Observed: 06/26/2024 2:12 PM Status: F Source: [facility] Ventricular Rate 112 Atrial Rate 112 P-R Interval 146 QRS Duration 84 Q-T Interval 324 QTC Calculation(Bazett) 442 P Seattle 41 R [place] 28 T [place] 45 QRS Count 18 Q Onset 221 P Onset 148 P Offset 205 T Offset 383 QTC Fredericia 399 Diagnosis Sinus tachycardia Possible Left atrial enlargement Borderline ECG When compared with ECG of 30-MAY-2024 20:34, No significant change was found See ED provider note for full interpretation and clinical correlation Confirmed by Zuri Lange ([id number]) on 06/27/2024 11:14:22 AM HEMOGLOBIN A1C/HEMOGLOBIN.TOTAL Collect ed: 06/20/2024 9:31 AM Status: F Source: [facility] Order Comment: Diagnosis of Diabetes-Adults Non-Diabetic: < or = 5.6% Increased risk for developing diabetes: 5.7-6.4% Diagnostic of diabetes: > or = 6.5% TYPE CODE TESTS RESULT OUT OF RANGE REFERENCE UNITS LAB 4548-4(LOINC ) Hemoglobin A1c/Hemoglob in.total 7.1 High See comment % LAB 55699-0(LOIN C) Estimated average glucose 157 Not Established mg/dL Performed By: #### 4548-4 ## ## ALVARO CROUCH ([id number]) [facility] ([facility]) [address] [place], [place] [address] COMPREHENSIVE METABOLIC 2000 PANEL Collected: 06/20/2024 9:31 AM Status: F Source: [facility] TYPE CODE TESTS RESULT OUT OF RANGE REFERENCE UNITS LAB 2345-7(LOINC) Glucose 131 High 74-99 mg/dL LAB 2951-2(LOINC) Sodium 138 136-145 mmol/L LAB 2823-3(LOINC) Potassium 4.1 3.5-5.3 mmol/L LAB 2075-0(LOINC) Chloride 100 98-107 mmol/L LAB 2027-9(LOINC) Carbon dioxide 27 21-32 mmo l/L LAB 74469-5(LOINC ) Anion gap 15 10-20 mmol/L LAB 3094-0(LOINC) Urea nitrogen 17 6-23 mg/d L LAB 2160-0(LOINC) Creatinine 1.02 0.50-1.05 mg/dL LAB 67826-8(LOINC ) Glomerular filtration rate/1.73 sq M.predicted 68 >60 mL/min/ 1.73m*2 Result Comment: Calculations of estimated GFR are performed using the 2020 CKD- EPI Study Refit equation without the race variable for the IDMS-Traceable creatinine methods. https://jasn.asnjournals.org/content/early//ASN.8644445552 LAB 83423-3(LOINC ) Calcium 9.4 8.6-10.3 mg/dL LAB 22764-9(LOINC ) Albumin 4.7 3.4-5.0 g/dL LAB 6768-6(LOINC) Alkaline phosphatase 112 High 33-110 U/L LAB 2885-2(LOINC) Protein 7.5 6.4-8.2 g/dL LAB 49970-5(LOINC ) Aspartate aminotransferase 33 9-39 U/L LAB 1975-2(LOINC) Bilirubin 0.4 0.0-1.2 mg/dL LAB 1743-4(LOINC) Alanine aminotransferase 53 High 7-45 U/L Result Comment: Patients spenser ated with Sulfasalazine may generate falsely decreased results for ALT. Performed By: #### 81015-5 # ### ALVARO CROUCH ([id number]) [facility] ([facility]) [address] [place] [address] C PEPTIDE Collected: 4 9:31 AM Status: F Source: [facility] TYPE CODE TESTS RESULT OUT OF RANGE REFERENCE UNITS LAB 1986-05(LOINC) C peptide 4.1 High 0.7-3.9 ng/mL Performed By: #### 1986-05 ## ## ANDI Cotter ([id number]) [facility] ([facility]) [address] [place] [address] ALLERGIES DATE TYPE / CODE NAME / CODE REACTION SEVERITY SOURCE 08/02/2024 DRUG INGREDI/4195 91894(SNOMED CT) NALOXONE Swelling [facility] 06/22/2024 DRUG INGREDI/4195 64321(SNOMED CT) BACLOFEN Dizziness [facility] 06/16/2023 Drug Class/451532 003(SNOMED CT) PENICILLINS Rash [facility] 01/04/2017 DRUG INGREDI/4195 58961(SNOMED CT) GABAPENTIN Swelling~Rash~Naus ea/vomit [facility] 01/04/2017 DRUG INGREDI/4195 85191(SNOMED CT) TOPIRAMATE Other [facility] 04/12/2016 DRUG INGREDI/4195 80732(SNOMED CT) MORPHINE OTHER: SEE C [facility] 10/23/2013 DRUG INGREDI/4195 19611(SNOMED CT) GABAPENTIN INTOLERANCE [facility] 10/23/2013 Drug Class/836779 003(SNOMED CT) PENICILLINS INTOLERANCE [facility] 10/23/2013 Drug Class/097832 003(SNOMED CT) SULFA (SULFONAMIDE ANTIBIOTICS) INTOLERANCE [facility] 10/23/2013 DRUG INGREDI/4195 12923(SNOMED CT) TOPIRAMATE INTOLERANCE [facility] 10/23/2013 Drug Class/376536 003(SNOMED CT) SULFA (SULFONAMIDE ANTIBIOTICS) Hives~Other~Rash [facility] ENCOUNTERS ADMIT/DISCHARGE ACCOUNT NUMBER ADMITTING ENCOUNTER CLASS LOCATION SOURCE 06/13/2025/06/16/20 [id number] MARY ALICE GONZALEZ Inpatient Encounter Building:[facility] 3Room: [id number]: 314[facility] 06/13/2025/06/13/20 [id number] Ambulatory Building:[facility] 06/06/2025/06/09/20 [id number] BREA NOLEN Inpatient Encounter Building:[facility] 3Room: [id number]: 311A [facility] 06/01/2025/06/01/20 25 [id number] Emergency Building:[facility] EDRoom: [id number] : [address] 05/30/2025/05/30/20 25 [id number] Ambulatory Building:[facility] 05/19/2025/05/24/20 25 [id number] SNOW CHAN Inpatient Encounter Building:[facility] 3Room: [id number]: 312[facility] 05/17/2025/05/17/20 25 [id number] Emergency Building:[facility] EDRoom: [id number] : [address] 05/17/2025/05/17/20 25 [id number] [facility]14[facility] 25 [id number] Ambulatory Building:[facility] 05/06/2025/05/06/20 25 [id number] Ambulatory Building:[facility] 04/22/2025/04/22/20 25 [id number] Ambulatory Building:[facility] 04/15/2025/04/15/20 25 [id number] Ambulatory Building:[facility] [id number] [facility] 04/02/2025/04/02/20 25 [id number] Ambulatory Building:[facility] [id number] [facility] 03/28/2025/03/28/20 25 [id number] Ambulatory Building:[facility] 03/27/2025/03/27/20 25 [id number] Ambulatory Building:[facility] [id number] [facility] 03/16/2025/03/20/20 25 [id number] NEPTALI TRONCOSO Inpatient Encounter Building:[facility] 3Room: [id number]: 314[facility] 03/15/2025/03/15/20 25 [id number] Ambulatory Building:[facility] 02/26/2025/02/27/20 25 [id number] Emergency Building:[facility] EDRoom: [id number] : 12 [facility] 02/20/2025/02/21/20 25 [id number] Ambulatory Building:[facility] 02/13/2025/02/14/20 25 [id number] Ambulatory Building:[facility] 02/12/2025/02/13/20 25 [id number] Emergency Building:[facility] EDRoom: [id number] : [address] 02/06/2025/02/07/20 25 [id number] Ambulatory Building:[facility] 01/22/2025/01/23/20 25 [id number] Emergency Building:[facility] EDRoom: [id number] : [address] 01/22/2025/01/23/20 25 [id number] Ambulatory Building:[facility] 01/14/2025/01/15/20 25 [id number] Emergency Building:[facility] EDRoom: [id number] : [address] 01/02/2025/01/03/20 25 [id number] Ambulatory Building:[facility] 12/31/2024/01/01/20 25 [id number] [facility] 12/19/2024/12/20/19 25 [id number] Ambulatory Building:[facility] 2[facility]1 [facility] 12/19/2024/12/20/19 25 [id number] Ambulatory Building:[facility] 12/12/2024/12/13/19 25 [id number] Ambulatory Building:[facility] 11/30/2024/12/01/19 25 [id number] Emergency Building:[facility] EDRoom: [id number] : [address] 11/29/2024/11/30/19 25 [id number] Ambulatory Building:[facility] 11/15/2024/11/15/19 25 [id number] Ambulatory Building:[facility] 11/08/2024/11/12/19 25 [id number] URBANO CHESTER Inpatient Encounter Building:[facility] 3Roo: [id number]: 316[address] [facility] 10/30/2024/10/30/19 25 [id number] Ambulatory Building:[facility] 10/23/2024/10/23/19 25 [id number] [facility] 10/18/2024/10/18/19 25 [id number] Emergency Building:[facility] EDRoom: [id number] : [address] 10/10/2024/10/10/19 25 [id number] Ambulatory Building:[facility] 10/10/2024/10/10/19 25 [id number] Ambulatory Building:[facility] [id number] [facility] 09/27/2024/09/27/19 25 [id number] Emergency Building:[facility] EDRoom: [id number] : [address] 09/27/2024/09/27/19 25 [id number] Emergency Building:[facility] 09/27/2024/09/27/19 25 [id number] Ambulatory Building:[facility] 09/26/2024/09/26/19 25 [id number] Ambulatory Building:[facility] 09/22/2024/09/22/19 25 [id number] Ambulatory Building:[facility] 09/22/2024/09/22/19 25 [id number] Ambulatory Building:[facility] 09/05/2024/09/05/20 24 [id number] Ambulatory Building:[facility] 08/27/2024/08/27/20 24 [id number] Ambulatory Building:[facility] [id number] [facility] 08/22/2024/08/22/20 24 [id number] Ambulatory Building:[facility] 08/22/2024/12/04/20 24 [id number] Ambulatory Building:[facility] 08/21/2024/08/21/20 24 [id number] Ambulatory Building:[address] 08/18/2024/08/18/20 24 [id number] Emergency Building:[facility] EDRoom: [id number] : 04 [facility] 08/03/2024/08/03/20 24 [id number] Emergency Building:[facility] EDRoom: [id number] : [address] 08/02/2024/08/02/20 24 [id number] Ambulatory Building:[address] 08/01/2024/08/01/20 24 [id number] Ambulatory Building:[facility] 07/19/2024/07/19/20 24 [id number] Ambulatory Building:[facility] 07/12/2024 [id number] Ambulatory Building:[facility]/04/2024/07/04/20 24 [id number] Ambulatory Building:[id number]/04/2024/07/04/20 24 [id number] Ambulatory Building:[facility] 07/02/2024/07/02/20 24 [id number] Emergency Building:[facility] EDRoom: [id number] : [address] 06/27/2024/06/26/20 24 [id number] Ambulatory Building:[facility] 2[facility] 06/26/2024/06/26/20 24 [id number] Emergency Building:[facility] EDRoom: [id number] : [address] 06/22/2024/06/22/20 24 [id number] Ambulatory Building:[facility] 06/20/2024/06/20/20 24 [id number] Ambulatory Building:[facility] 06/20/2024/06/20/20 24 [id number] Ambulatory Building:[facility] PAYERS 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 [employer]OURCE 06/13/2025 DOROTHEA MARINELLI: [id number] [address] [place] [address]Xay: () Primary Insurance:HUMAN MEDICAREPolicy Number: [id number] Date:2022-09-19 DOROTHEA MARINELLI: [id number] [place] [address] [facility] 06/13/2025 DOROTHEA MARINELLI: [address] [place] [address]Qhm: () Primary Insurance:HUMANA MEDICAREPolicy Number: [id number] Date:2022-09-19 DOROTHEA MARINELLI: [id number] [address] [place] [address]Eal: () [facility] 06/06/2025 DOROTHEA MARINELLI: [address] [place] [address]Lic: () Primary Insurance:HUMANA MEDICAREPolicy Number: [id number] Date:2022-09-19 DOROTHEA MARINELLI: [id number] [address], [place] [address]Wgt: () [facility] 06/01/2025 DOROTHEA MARINELLI: [id number] [address] [place], [place] [address]Niw: () Primary Insurance:HUMANA MEDICAREPolicy Number: [id number] Date:2022-09-19 DOROTHEA MARINELLI: [id number] [address] [place], [place] [address]Qom: () [facility] 05/30/2025 DOROTHEA MARINELLI: [address] [place], [place] [address]Fzd: (HP) (WP) Primary Insurance:HUMANA MEDICAREPolicy Number: [id number] Date:2022-09-19 DOROTHEA MARINELLI: [id number] [address] [place] [address]Qbt: (HP) [facility] 05/19/2025 DOROTHEA MARINELLI: [address] [place], [place] [address]Udl: (HP) (WP) Primary Insurance:HUMANA MEDICAREPolicy Number: [id number] Date:2022-09-19 DOROTHEA MARINELLI: [id number] [address] [place], [place] [address]Amr: (HP) [facility] 05/17/2025 DOROTHEA MARINELLI: [address] [place], [place] [address]Onx: (HP) (WP) Primary Insurance:HUMANA MEDICAREPolicy Number: [id number] Date:2022-09-19 DOROTHEA MARINELLI: [id number] [address] [place], [place] [address]Yur: (HP) [facility] 05/17/2025 Primary Insurance:HUMANA MEDICARE PPOPolicy Number: [id number] Date:[id number] Name:Dottie MARINELLI: [id number] [address] [place] [address] [facility] 05/14/2025 DOROTHEA MARINELLI: [address] [place], [place] [address]Hgx: (HP) (WP) Primary Insurance:HUMANA MEDICAREPolicy Number: [id number] Date:2022-09-19 DOROTHEA MARINELLI: [id number] [address] [place] [address]Ait: (HP) [facility] 05/06/2025 DOROTHEA MARINELLI: [address] [place] [address]Zlb: (HP) (WP) Primary Insurance:HUMANA MEDICAREPolicy Number: [id number] Date:2022-09-19 DOROTHEA MARINELLI: [id number] [address] [place] [address]Uvb: (HP) [facility] 04/22/2025 DOROTHEA MARINELLI: [address] [place] [address]Mzz: (HP) (WP) Primary Insurance:HUMANA MEDICAREPolicy Number: [id number] Date:2022-09-19 DOROTHEA MARINELLI: [id number] [address] [place] [address]Tir: (HP) [facility] 04/15/2025 DOROTHEA MARINELLI: [address] [place] [address]Plj: (HP) (WP) Primary Insurance:HUMANA MEDICAREPolicy Number: [id number] Date:2022-09-19 DOROTHEA MARINELLI: [id number] [address] [place] [address]Erv: (HP) [facility] 04/02/2025 DOROTHEA MARINELLI: [address] [place] [address]Lae: (HP) (WP) Primary Insurance:HUMANA MEDICAREPolicy Number: [id number] Date:2022-09-19 DOROTHEA MARINELLI: [id number] [address] [place] [address]Gmx: (HP) [facility] 03/28/2025 DOROTHEA MARINELLI: [address] [place] [address]Ttp: (HP) (WP) Primary Insurance:HUMANA MEDICAREPolicy Number: [id number] Date:2022-09-19 DOROTHEA MARINELLI: [id number] [address] [place] [address]Hlr: (HP) [facility] 03/27/2025 DOROTHEA MARINELLI: [address] [place] [address]Lie: (HP) (WP) Primary Insurance:HUMANA MEDICAREPolicy Number: [id number] Date:2022-09-19 DOROTHEA MARINELLI: [id number] [address] [place] [address]Udi: (HP) [facility] 03/16/2025 DOROTHEA MARINELLI: [address] [place] [address]Upj: (HP) (WP) Primary Insurance:HUMANA MEDICAREPolicy Number: [id number] Date:2022-09-19 DOROTHEA MARINELLI: [id number] [address] [place], [place] [address]Cxv: (HP) [facility] 03/15/2025 DOROTHEA MARINELLI: [address] [place] [place] [address]Hwz: (HP) (WP) Primary Insurance:HUMANA MEDICAREPolicy Number: [id number] Date:2022-09-19 DOROTHEA MARINELLI: [id number] [address] [place], [place] [address]Mxb: (HP) [facility] 02/26/2025 DOROTHEA MARINELLI: [address] [place], [place] [address]Axg: (HP) (WP) Primary Insurance:HUMANA MEDICAREPolicy Number: [id number] Date:2022-09-19 DOROTHEA MARINELLI: [id number] [address] [place], [place] [address]Zyr: (HP) [facility] 02/20/2025 DOROTHEA MARINELLI: [address] [place] [place] [address]Kca: (HP) (WP) Primary Insurance:HUMANA MEDICAREPolicy Number: [id number] Date:2022-09-19 DOROTHEA MARINELLI: [id number] [address] [place] [address]Bmt: (HP) [facility] 02/13/2025 DOROTHEA MARINELLI: [address] [place] [place] [address]Luc: (HP) (WP) Primary Insurance:HUMANA MEDICAREPolicy Number: [id number] Date:2022-09-19 DOROTHEA MARINELLI: [id number] [address] [place] [address]Acs: (HP) [facility] 02/12/2025 DOROTHEA TRAVISB: [address] [place] [address]Mfa: (HP) (WP) Primary Insurance:HUMANA MEDICAREPolicy Number: [id number] Date:2022-09-19 DOROTHEA MARINELLI: [id number] [address] [place] [address]Pnz: (HP) [facility] 02/06/2025 DOROTHEA MARINELLI: [address] [place] [address]Rki: (HP) (WP) Primary Insurance:HUMANA MEDICAREPolicy Number: [id number] Date:2022-09-19 DOROTHEA MARINELLI: [id number] [address] [place] [address]Uyf: (HP) [facility] 01/22/2025 DOROTHEA MARINELLI: [address] [place] [address]Hwr: (HP) (WP) Primary Insurance:HUMANA MEDICAREPolicy Number: [id number] Date:2022-09-19 DOROTHEA MARINELLI: [id number] [address] [place] [address]Jvc: (HP) [facility] 01/22/2025 DOROTHEA MARINELLI: [address] [place] [address]Njz: (HP) (WP) Primary Insurance:HUMANA MEDICAREPolicy Number: [id number] Date:2022-09-19 DOROTHEA MARINELLI: [id number] [address] [place], [place] [address]Ham: (HP) [facility] 01/14/2025 DOROTHEA MARINELLI: [address] [place], [place] [address]Tsb: (HP) (WP) Primary Insurance:HUMANA MEDICAREPolicy Number: [id number] Date:2022-09-19 DOROTHEA MARINELLI: [id number] [address] [place], [place] [address]Bqg: () [facility] 01/02/2025 DOROTHEA MARINELLI: [address] [facility] [place], [place] [address]Oxu: () (WP) Primary Insurance:HUMANA MEDICAREPolicy Number: [id number] Date:2022-09-19 DOROTHEA MARINELLI: [id number] [address] [place], [place] [address]Vma: () [facility] 12/31/2024 DOROTHEA MARINELLI: [address] [place], [place] [address]Yxl: () (WP) Primary Insurance:HUMANA MEDICAREPolicy Number: [id number] Date:2022-09-19 DOROTHEA MARINELLI: [id number] [address] [place], [place] [address]Zhp: () [facility] 12/19/2024 DOROTHEA MARINELLI: [address] [place] [address]Qjl: (HP) (WP) Primary Insurance:HUMANA MEDICAREPolicy Number: [id number] Date:2022-09-19 DOROTHEA TRAVISB: [id number] [address] [place] [address]Uzp: (HP) [facility] 12/19/2024 DOROTHEA MARINELLI: [address] [place] [address]Dii: (HP) (WP) Primary Insurance:HUMANA MEDICAREPolicy Number: [id number] Date:2022-09-19 DOROTHEA MARINELLI: [id number] [address] [place] [address]Rej: (HP) [facility] 12/12/2024 DOROTHEA MARINELLI: [address] [place] [place] [address]Xsf: (HP) (WP) Primary Insurance:HUMANA MEDICAREPolicy Number: [id number] Date:2022-09-19 DOROTHEA MARINELLI: [id number] [address] [place] [address]Pzn: (HP) [facility] 11/30/2024 DOROTHEA MARINELLI: [address] [place] [place] [address]Fjw: (HP) (WP) Primary Insurance:HUMANA MEDICAREPolicy Number: [id number] Date:2022-09-19 DOROTHEA MARINELLI: [id number] [address] [place] [address]Wfh: (HP) [facility] 11/29/2024 DOROTHEA MARINELLI: [address] [place] [address]Prv: (HP) (WP) Primary Insurance:HUMANA MEDICAREPolicy Number: [id number] Date:2022-09-19 DOROTHEA MARINELLI: [id number] [address] [place], [place] [address]Mxw: (HP) [facility] 11/15/2024 DOROTHEA MARINELLI: [facility] [place] [address]Eyf: (HP) (WP) Primary Insurance:HUMANA MEDICAREPolicy Number: [id number] Date:2022-09-19 DOROTHEA MARINELLI: [id number] [address] [place], [place] [address]Mjy: (HP) [facility] 11/08/2024 DOROTHEA MARINELLI: [facility], [place] [address]Xev: (HP) (WP) Primary Insurance:HUMANA MEDICAREPolicy Number: [id number] Date:2022-09-19 DOROTHEA MARINELLI: [id number] [address] [facility], [place] [address]Npm: (HP) [facility] 10/30/2024 DOROTHEA MARINELLI: [address] [place], [place] [address]Giz: (HP) (WP) Primary Insurance:HUMANA MEDICAREPolicy Number: [id number] Date:2022-09-19 DOROTHEA MARINELLI: [id number] [address] [place], [place] [address]Fig: (HP) [facility] 10/23/2024 Primary Insurance:HUMANA MEDICARE PPOPolicy Number: [id number] Date:[id number] Name:Dottie MARINELLI: [id number] [place] [address] [facility] 10/18/2024 DOROTHEA MARINELLI: [address] [place] [place] [address]Qqe: (HP) (WP) Primary Insurance:HUMANA MEDICAREPolicy Number: [id number] Date:2022-09-19 DOROTHEA MARINELLI: [id number] [address] [place] [address]Tsn: (HP) [facility] 10/10/2024 DOROTHEA MARINELLI: [address] [place] [address]Dsn: (HP) (WP) Primary Insurance:HUMANA MEDICAREPolicy Number: [id number] Date:2022-09-19 DOROTHEA MARINELLI: [id number] [address] [place], [place] [address]Pza: (HP) [facility] 10/10/2024 DOROTHEA MARINELLI: [address] [place] [place] [address]Jeb: (HP) (WP) Primary Insurance:HUMANA MEDICAREPolicy Number: [id number] Date:2022-09-19 DOROTHEA MARINELLI: [id number] [address] [place] [address]Gqj: (HP) [facility] 09/27/2024 DOROTHEA MARINELLI: [place], [place] [address]Uzz: (HP) (WP) Primary Insurance:HUMANA MEDICAREPolicy Number: [id number] Date:2022-09-19 DOROTHEA MARINELLI: [id number] [address] [place], [place] [address]Oea: (HP) [facility] 09/27/2024 DOROTHEA MARINELLI: [place] [address]Gti: (HP) (WP) Primary Insurance:HUMANA MEDICAREPolicy Number: [id number] Date:2022-09-19 DOROTHEA MARINELLI: [id number] [address] [place], [place] [address]Rew: (HP) [facility] 09/27/2024 DOROTHEA MARINELLI: [address] [place] [address]Wtx: (HP) (WP) Primary Insurance:HUMANA MEDICAREPolicy Number: [id number] Date:2022-09-19 DOROTHEA MARINELLI: [id number] [address] [place], [place] [address]Nqd: (HP) [facility] 09/26/2024 DOROTHEA MARINELLI: [place], [place] [address]Dqx: (HP) (WP) Primary Insurance:HUMANA MEDICAREPolicy Number: [id number] Date:2022-09-19 DOROTHEA MARINELLI: [id number] [address] [place] [address]Fym: (HP) [facility] 09/22/2024 DOROTHEA MARINELLI: [address] [place] [address]Itj: (HP) (WP) Primary Insurance:HUMANA MEDICAREPolicy Number: [id number] Date:2022-09-19 DOROTHEA MARINELLI: [id number] [address] [place] [address]Gvt: (HP) [facility] 09/22/2024 DOROTHEA MARINELLI: [address] [place] [address]Pko: (HP) (WP) Primary Insurance:HUMANA MEDICAREPolicy Number: [id number] Date:2022-09-19 DOROTHEA MARINELLI: [id number] [address] [place] [address]Zzs: (HP) [facility] 09/05/2024 DOROTHEA MARINELLI: [address] [place] [place] [address]Ctz: (HP) (WP) Primary Insurance:HUMANA MEDICAREPolicy Number: [id number] Date:2022-09-19 DOROTHEA MARINELLI: [id number] [address] [place] [address]Mxl: (HP) [facility] 08/27/2024 DOROTHEA MARINELLI: [address] [place] [address]Way: (HP) (WP) Primary Insurance:HUMANA MEDICAREPolicy Number: [id number] Date:2022-09-19 DOROTHEA MARINELLI: [id number] [address] [place], [place] [address]Ejl: (HP) [facility] 08/22/2024 DOROTHEA MARINELLI: [address] [place] [address]Sde: (HP) (WP) Primary Insurance:HUMANA MEDICAREPolicy Number: [id number] Date:2022-09-19 DOROTHEA MARINELLI: [id number] [address] [place], [place] [address]Ttr: (HP) [facility] 08/22/2024 DOROTHEA MARINELLI: [address] [place] [place], [place] [address]Nhj: (HP) (WP) Primary Insurance:HUMANA MEDICAREPolicy Number: [id number] Date:2022-09-19 DOROTHEA MARINELLI: [id number] E [facility], [place] [address]Lfm: (HP) [facility] 08/21/2024 DOROTHEA MARINELLI: [address] [facility] [place], [place] [address]Yyy: (HP) (WP) Primary Insurance:HUMANA MEDICAREPolicy Number: [id number] Date:2022-09-19 DOROTHEA MARINELLI: [id number] E [facility], [place] [address]Ygf: (HP) [facility] 08/18/2024 DOROTHEA MARINELLI: [place], [place] [address]Epl: (HP) (WP) Primary Insurance:HUMANA MEDICAREPolicy Number: [id number] Date:2022-09-19 DOROTHEA MARINELLI: [id number] [address] [place], [place] [address]Zmg: (HP) [facility] 08/03/2024 DOROTHEA MARINELLI: [place] [address]Juv: (HP) (WP) Primary Insurance:HUMANA MEDICAREPolicy Number: [id number] Date:2022-09-19 DOROTHEA MARINELLI: [id number] [address] [place], [place] [address]Bdc: (HP) [facility] 08/02/2024 DOROTHEA MARINELLI: [place] [address]Nmn: (HP) (WP) Primary Insurance:HUMANA MEDICAREPolicy Number: [id number] Date:2022-09-19 DOROTHEA MARINELLI: [id number] [address] [place], [place] [address]Ibt: (HP) [facility] 08/01/2024 DOROTHEA MARINELLI: [place] [address]Kpp: (HP) (WP) Primary Insurance:HUMANA MEDICAREPolicy Number: [id number] Date:2022-09-19 DOROTHEA MARINELLI: [id number] [address] [place] [address]Hpr: (HP) [facility] 07/19/2024 DOROTHEA MARINELLI: [address] [place] [address]Wli: (HP) (WP) Primary Insurance:HUMANA MEDICAREPolicy Number: [id number] Date:2022-09-19 DOROTHEA MARINELLI: [id number] [address] [place] [address]Frg: (HP) [facility] 07/12/2024 DOROTHEA MARINELLI: [address] [place] [address]Ywc: (HP) (WP) Primary Insurance:HUMANA MEDICAREPolicy Number: [id number] Date:2022-09-19 DOROTHEA MARINELLI: [id number] [address] [place], [place] [address]Qql: (HP) [facility] 07/04/2024 DOROTHEA MARINELLI: [address] [place] [place] [address]Wyg: (HP) (WP) Primary Insurance:HUMANA MEDICAREPolicy Number: [id number] Date:2022-09-19 DOROTHEA MARINELLI: [id number] [address] [place] [address]Cee: (HP) [facility] 07/04/2024 DOROTHEA MARINELLI: [address] [place] [address]Xsy: (HP) (WP) Primary Insurance:HUMANA MEDICAREPolicy Number: [id number] Date:2022-09-19 DOROTHEA MARINELLI: [id number] [address] [facility], [place] [address]Ivf: (HP) [facility] 07/02/2024 DOROTHEA MARINELLI: [address] [place], [place] [address]Bvi: (HP) (WP) Primary Insurance:HUMANA MEDICAREPolicy Number: [id number] Date:2022-09-19 DOROTHEA MARINELLI: [id number] [address] CL[facility] [place], [place] [address]Syq: (HP) [facility] 06/27/2024 DOROTHEA MARINELLI: [facility] [place], [place] [address]Kza: (HP) (WP) Primary Insurance:HUMANA MEDICAREPolicy Number: [id number] Date:2022-09-19 DOROTHEA MARINELLI: [id number] [address]BLUFF[facility] [place]ITAL[place]LO[place], [place] [address]Fkn: (HP) [facility] 06/26/2024 DOROTHEA MARINELLI: [address] [place]DHER[place], [place] [address]Mdh: (HP) (WP) Primary Insurance:HUMANA MEDICAREPolicy Number: [id number] Date:2022-09-19 DOROTHEA MARINELLI: [id number] [address] [place], [place] [address]Lup: (HP) [facility] 06/22/2024 DOROTHEA MARINELLI: [place], [place] [address]Zye: (HP) (WP) Primary Insurance:HUMANA MEDICAREPolicy Number: [id number] Date:2022-09-19 DOROTHEA MARINELLI: [id number] [address] [place] [address]Wmf: (HP) [facility] 06/20/2024 DOROTHEA MARINELLI: [place] [address]Vmb: (HP) (WP) Primary Insurance:HUMANA MEDICAREPolicy Number: [id number] Date:2022-09-19 DOROTHEA MARINELLI: [id number] [address] [place], [place] [address]Zwa: (HP) [facility] 06/20/2024 DOROTHEA MARINELLI: E [facility], [place] [address]Npy: (HP) (WP) Primary Insurance:HUMANA MEDICAREPolicy Number: [id number] Date:2022-09-19 DOROTHEA MARINELLI: [id number] E [facility], [place] [address]Uwu: (HP) [facility]
--- NOTE | 2025-06-18 13:25 | MRI_ITS ---
PROCEDURE: UPPER EXT NO JOINT W/WO CONT 06/18/2025 REASON FOR EXAM: FINGER MASS mass on right ring finger TECHNIQUE: Procedure Code: [id number] Modality: T1, T2, stir, postcontrast T1 fat-sat, MR Procedure: UPPER EXT NO JOINT W/WO CONT CONTRAST: 19 cc Clariscan COMPARISON: None FINDINGS: There is a lobulated lesion at the nail base of the 4th distal phalanx which shows low precontrast T1 signal characteristics, measuring 0.9 x 0.9 x 0.5 cm, high T2, high postcontrast T1 signal. There is normal signal in the underlying bone. The flexor and extensor tendons appear intact. There is no visible russell injury. There is no joint effusion. MRI/Upper Ext No Joint W/WO Cont IMPRESSION: There is a lobulated lesion at the nail base of the 4th distal phalanx which sh ows low precontrast T1 signal characteristics, measuring 0.9 x 0.9 x 0.5 cm, high T2, high postcontrast T1 signal. The differ ential includes glomus tumor. Reading Location: [facility]
[2025-06-18] MEDS: 0.9% Saline Lock 10 ML Syringe IV ×2 (13:35→14:58)
--- NOTE | 2025-06-18 14:30 | US_ITS ---
PROCEDURE: HEAD/NECK SOFT TISSUE 06/18/2025 REASON FOR EXAM: LEFT POST SUPERIOR NECK MASS Palpable TECHNIQUE: Procedure Code: USH/N SOFT Modality: US Procedure: HEAD/NECK SOFT TISSUE COMPARISON: None FINDINGS: Limited sonographic evaluation of the subcutaneous tissue of the left posterior superior neck. There is a well-defined hypoechoic 0.7 x 0.4 x 0.4 cm hypoechoic nodule with some vascularity with sonographic characteristics of the lymph node. There is no evidence of hyperemia to suspect inflammation, no subcutaneous fluid collection. No fistulous connection to the skin. US/Head/Neck Soft Tissue IMPRESSION: Palpable lump corresponds to a likely subcentimeter physiologic lymph node. No suspicious findings Reading Location: [id number]
[2025-06-18 16:41] LABS: AST(SGOT) 37 U/L (<=31); Alanine Aminotransfer ALT/SGPT 74 U/L (<=34); Albumin, Serum 4.5 g/dL (3.5-5.0); Alkaline Phosphatase 161 U/L (35-104); Anion Gap 18 (5-15); BUN 13 mg/dL (4-19); BUN/Creat Ratio 16.6 RATIO (10-20); Calcium,Total 9.9 mg/dL (7.6-11.0); Carbon Dioxide 24.7 mmol/L (21.0-32.0); Chloride 94 mmol/L (98-108); Globulin 3.1 g/dL (2.2-4.2); Glucose 97 mg/dL (70-99); Magnesium 1.8 mg/dL (1.5-2.2); Potassium 4.1 mmol/L (3.3-5.1)
== END | disposition home or self-care (01) ==
PROVIDERS: PCP Physician Assistant; Referring Provider Surgery Plastic and Reconstructive Surgery; Visit Provider Surgery Plastic and Reconstructive Surgery
DX: E11.65 Type 2 diabetes mellitus with hyperglycemia (principal); E78.2 Mixed hyperlipidemia; I10 Essential (primary) hypertension; Z79.899 Other long term (current) drug therapy
CPT/HCPCS: 36415; 73220; 76536; 80053; 83036; 83735; A9575; A4216

== ENCOUNTER → 2025-07-12 | Outpatient (CLI) | payer MEDICARE, SELFPAY | END | disposition home or self-care (01) | PROVIDERS: PCP Physician Assistant; Referring Provider Surgery Plastic and Reconstructive Surgery; Visit Provider Surgery Plastic and Reconstructive Surgery | DX: L73.2 Hidradenitis suppurativa (principal) | CPT/HCPCS: 87070; 87075; 87077; 87205 ==